=== PATIENT | male | born 1965 | race Caucasian/White ===

== ENCOUNTER → 2017-05-21 11:10 | Outpatient (CLI) | payer OTHER, SELFPAY ==
[2017-05-21 15:17] LABS: AST(SGOT) 17 U/L (15-37); Alanine Aminotransfer ALT/SGPT 28 U/L (16-61); Albumin, Serum 3.4 g/dL (3.2-5.0); Alkaline Phosphatase 107 U/L (45-117); Anion Gap 11 (5-15); BUN 15 mg/dL (7-18); BUN/Creat Ratio 18.1 RATIO (10-20); Calcium,Total 8.4 mg/dL (8.5-10.1); Chloride 99 mmol/L (98-107); Cholesterol 194 mg/dL (200); Creatinine, Serum 0.83 mg/dL (0.70-1.30); EST Glomerular Filtration Rate 103 mL/min (>60); Est Glom Filt Rate - Afr Amer 125 mL/min (>60); Globulin 4.3 g/dL (2.2-4.2); Glucose 290 mg/dL (74-106); High Density Lipoprotein 37 mg/dL; Potassium 3.9 mmol/L (3.5-5.1); Protein, Total 7.7 g/dL (6.4-8.2); Sodium Level 134 mmol/L (136-145); Triglycerides 398 mg/dL; Very Low Density Lipoprotein 80 mg/dL (5-40)
[2017-05-21 15:23] LABS: Hemoglobin A1c 10.1 % (4.2-6.3)
[2017-05-21 15:54] LABS: Microalbumin:Creatinine Ratio 635.4 mg/g CRE (<30 mg/g CRE)
== END ==
LOC: MFPLAB 11:11
PROVIDERS: Family Provider Family Medicine; PCP Family Medicine; Visit Provider Family Medicine
DX: E11.9 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 without complications (principal)
CPT/HCPCS: 36415; 80048; 80061; 80076; 82043; 82570; 83036

== ENCOUNTER → 2017-09-24 15:08 | Outpatient (CLI) | payer OTHER, SELFPAY ==
[2017-09-24 18:16] LABS: Absolute Lymphocyte Count 1.91 X10^3/ul (0.83-4.51); Basophil# 0.04 X10^3/uL; Basophil% 0.5 % (0-1); Eosinophil# 0.17 X10^3/uL; Eosinophils% 2.2 % (0-5); Hematocrit 38.7 % (40-54); Hemoglobin 12.3 g/dl (13.0-16.5); Lymphocyte # 1.91 X10^3/ul (4.0); Lymphocyte % 24.6 % (19-41); Mean Corp Hgb Conc 31.8 g/gl (32-36); Mean Corpuscular Hgb 25.4 pg (27.0-32.0); Mean Corpuscular Volume 79.8 fL (80-94); Mean Platelet Vol. 10.3 fl (6.2-12.0); Monocyte# 0.63 X10^3/uL; Monocyte% 8.1 % (0-10); Neutrophil # 5.01 X10^3/uL (2.7-7.7); Neutrophil % 64.5 % (47-70); Platelet Count 203 K/mm3 (150-450); RBC Distribution Width CV 15.2 % (11.6-14.6); RBC Distribution Width SD 44.6 fl (35.1-43.9); Red Blood Count 4.85 M/mm3 (4.6-6.2); White Blood Count 7.8 K/mm3 (4.4-11.0)
[2017-09-24 18:20] LABS: POSITIVE COUNT NO; POSITIVE DIFFERENTIAL NO; POSITIVE MORPHOLOGY NO
[2017-09-24 18:22] LABS: Thyroid Stim Hormone (TSH) 2.73 uIU/mL (0.358-3.74)
== END ==
LOC: MFPLAB 15:08
PROVIDERS: Family Provider Family Medicine; PCP Family Medicine; Visit Provider Family Medicine
DX: E11.9 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 without complications (principal); R53.81 Other malaise; R53.83 Other fatigue
CPT/HCPCS: 36415; 84403; 84443; 85025

== ENCOUNTER 2017-12-12 10:00 | Outpatient (RCR) | payer OTHER, SELFPAY ==
--- NOTE | 2017-11-20 11:01 | HP.PTEVAL_ITS ---
Patient's Visit Information KRUNAL LEOS is a 52 year old M referred to Physical Therapy by Radha Khan MD with a diagnosis of CERVICAL STRAIN. Date of Evaluation: 11/20/17 Physical Therapist: Cristino Larson, PT, - Visit Plan Frequency: 2x /Week Duration: 6 Weeks Plan: manual therapy MOBS cervical traction /STM,US,CP PROGRESS WITH ROM/ POSTURAL EX'S - Subjective Subjective: This 52 y/o male presents to physical therapy for cervical strain. Patient has had symptoms in cervical spine for a couple of months.Patient has had symptoms tightness in left UT cervical spine. Symptoms worse turning to the left ,popping either direction,sitting ,flexing neck. Symptoms better with iboprofin. Seen Dr Peace recommended PT. Denies parathesia/tingling. Denies AREVALO/ tinnutis/dizzinnes. No trauma or PT tx.Symptoms are intermmitant. Patient has seen chiroprator. Patient pain affects QOL and ADL'S/job demands. VOCATION: [employer]. SOCAIL: - Pain Left Neck Pain Intensity (Out of 10): 4 Pain Intensity Range: 8, 9 - Objective POSTURE: mild foward posture,protruded head,thoracic kyphosis. NEURO: denies parathesia/tingling ,C-5-6-7 2/3. PALAPTION: tender UT/levator scapular. CEVICAL ROM: flexion mod loss,extension mod loss,lateral flexion /rotation mod / severe loss ,left with pain left,protrusion mod,retraction mod loss. MMT: BUE grossly 4/5 - Special Tests C/S Radiculapathy - Left Upper limb tension test: Negative C/S Radiculapathy - Right Upper limb tension test: Negative C/S Radiculapathy - Left Spurlings: Negative C/S Radiculapathy - Right Spurlings: Positive Sharp Levi: Negative Vertebral Artery Test: Negative Alar Ligament Test: Negative Cervical Sitting: Protrusion - Mechanical Response: No effect Cervical Sitting: Protrusion - Symptoms During Testing: No effect Cervical Sitting: Protrusion - Symptoms After Testing: No effect Cervical Sitting: Retraction - Mechanical Response: No effect Cervical Sitting: Retraction - Symptoms During Testing: Increases Cervical Sitting: Retraction - Symptoms After Testing: No worse - Goals Goal 1:: Independant with HEP. Goal Time Frame: 4-6 Weeks Goal 2:: Patient to be Independant with HEP. Goal Time Frame: 4-6 Weeks Goal 3:: Patient to decrease left cervical pain by 60% or greater to improve function driving and ADL'S Goal Time Frame: 4-6 Weeks Goal 4:: Patient to improve cervical ROM for function of recovery for ADL;S Goal Time Frame: 4-6 Weeks Goal 5:: Patient improve ablity to improve ADL'S and job demnads with min limitations Goal Time Frame: 4-6 Weeks - Rehabilitation Potential Physical Therapy Diagnosis: Patient has left lateral stenosis affects pain left side with ROM,function ,ADL'S and job demands thus benifit from PT Rehabilitation Potential: Good - Anticipated Interventions Patient/Client Instruction: Educate patient on: Condition, Plan of Care For the Purpose of:: To decrease pain, To increase ROM, To improve muscle performance and motor function, To improve ability to perform ADL's, To increase tolerance to activity/condition/position, To improve ability of physical actions for home/community/work/leisure, To improve health of tissue, To decrease soft tissue restriction, To increase flexibility/ROM, To improve ability to perform tasks related to life management Therapeutic Exercise to Include: Strength training, Postural training, Flexibilty training, Active ROM, Georgette Exercises For the Purpose of:: To decrease pain, To increase ROM, To improve muscle performance and motor function, To improve ability to perform ADL's, To increase tolerance to activity/condition/position, To improve ability of physical actions for home/community/work/leisure, To improve health of tissue, To decrease soft tissue restriction, To increase flexibility/ROM, To improve ability to perform tasks related to life management IF ES: Yes Cryotherapy (ice pack, ice massage): Yes Thermo therapy (hot pack): Yes Ultrasound (thermal/non thermal): Yes Intermittent cervical traction: Yes For the Purpose of:: To decrease pain, To increase ROM, To improve nutrient delivery to tissue, To increase oxygenation perfusion, To improve health of tissue, To decrease soft tissue restriction Thank you for the opportunity to evaluate your patient. For Medicare and Medicare HMO plans, please review the plan of care and approve it. It will need to be FAXED BACK to us at [phone] for Medicare purposes. Please let me know if there are questions or concerns regarding this plan of care. Physician Signature: Date:
--- NOTE | 2018-03-10 12:59 | HP.PT.NRP ---
HP - Discharge Summary (1) - Patient Information KRUNAL LEOS was seen in my office for initial evaluation on 11/20/17. The following Plan of Care was established for this patient: Initial Frequency: 2x /Week Initial Duration: 6 Weeks - Anticipated Interventions Patient/Client Instruction: Educate patient on: Condition, Plan of Care For the Purpose of:: To decrease pain, To increase ROM, To improve muscle performance and motor function, To improve ability to perform ADL's, To increase tolerance to activity/condition/position, To improve ability of physical actions for home/community/work/leisure, To improve health of tissue, To decrease soft tissue restriction, To increase flexibility/ROM, To improve ability to perform tasks related to life management Therapeutic Exercise to Include: Strength training, Postural training, Flexibilty training, Active ROM, Georgette Exercises For the Purpose of:: To decrease pain, To increase ROM, To improve muscle performance and motor function, To improve ability to perform ADL's, To increase tolerance to activity/condition/position, To improve ability of physical actions for home/community/work/leisure, To improve health of tissue, To decrease soft tissue restriction, To increase flexibility/ROM, To improve ability to perform tasks related to life management IF ES: Yes Cryotherapy (ice pack, ice massage): Yes Thermo therapy (hot pack): Yes Ultrasound (thermal/non thermal): Yes Intermittent cervical traction: Yes For the Purpose of:: To decrease pain, To increase ROM, To improve nutrient delivery to tissue, To increase oxygenation perfusion, To improve health of tissue, To decrease soft tissue restriction This patient was last seen in our office 12/12/17. Pertinent comments regarding their Physical therapy will appear below: This patient seen for PT cervical strain . PT for cervical postural ex's ,modalities and ICTX . Patient progressing with decrease pain and improving ROM. At this point I will be discontinuing this patient from physical therapy. I would be happy to see this patient again in the future if found appropriate by the physician. Thank you! Cristino Larson, PT,
== END 2017-12-12 19:00 | disposition home or self-care (01) ==
LOC: PT 10:00
PROVIDERS: Family Provider Family Medicine; PCP Family Medicine; Visit Provider Family Medicine
DX: S16.1XXD Strain of muscle, fascia and tendon at neck level, subsequent encounter (principal)
CPT/HCPCS: 97012; 97035; 97110; 97140; 97162

== ENCOUNTER → 2018-01-28 15:47 | Outpatient (CLI) | payer OTHER, SELFPAY ==
--- NOTE | 2018-01-28 15:49 | ECHOCS_ITS ---
Reason For Study: HTN Procedure This was a 2D Doppler, Color Flow transthoracic echocardiogram. Contrast injection was performed. The study was technically difficult. Exam performed in department. Left Ventricle Normal LV size. Left ventricular systolic function is normal. The estimated ejection fraction is 60 %. Stage 1 diastolic dysfunction. No regional wall motion abnormalities noted. Right Ventricle Normal RV size. Normal systolic function. Atria Normal left atrium. Normal right atrium. Mitral Valve Normal mitral valve. Tricuspid Valve Normal tricuspid valve. Mild (1+) tricuspid valve insufficiency. Pulmonary artery systolic pressure is 38 mmHg. Aortic Valve Normal aortic valve. Pulmonic Valve Normal pulmonic valve. Great Vessels Normal aortic root. The pulmonary artery is normal size. Normal inferior vena cava. Pericardium/Pleural No pericardial effusion. Medication 22 gauge I.V. with prn adaptor inserted into right arm. Diluted definity 4ml given slow IV push to enhance endocardial definition. MMode/2D Measurements & Calculations LVIDd: 5.3 cm IVSd: 1.1 cm Ao root diam: 3.5 cm LVIDs: 3.9 cm LVPWd: 1.2 cm RVDd: 3.3 cm FS: 26.6 % LAV(MOD-bp): 79.6 ml LVAd ap4: 42.2 cm2 EDV(MOD-sp2): 106.5 ml LAV(MOD-bp) Indexed: 33.8 ml/m2 EDV(MOD-sp4): 151.5 ml EF(MOD-sp2): 64.6 % LAV(MOD-sp2): 90.1 ml EDV(sp4-el): 159.0 ml LAV(MOD-sp4): 63.2 ml LVAs ap4: 28.1 cm2 ESV(MOD-sp4): 75.5 ml ESV(sp4-el): 79.3 ml EF(MOD-sp4): 50.2 % EF(sp4-el): 50.1 % SV(MOD-sp4): 76.0 ml SV(MOD-sp2): 68.8 ml SV(sp4-el): 79.7 ml LA A4 area: 21.2 cm2 LA dimension(2D): 5.0 cm RA A4 area: 13.6 cm2 Time Measurements MV dec time: 0.18 sec Doppler Measurements & Calculations MV E max chin: 69.3 cm/sec Lat Peak E' Chin: 7.3 cm/sec Med Peak E' Chin: 4.5 cm/sec MV A max chin: 109.5 cm/sec E/E' lat: 9.5 E/E' med: 15.6 MV E/A: 0.63 Ao V2 max: 158.3 cm/sec LV V1 max: 90.8 cm/sec PA V2 max: 108.6 cm/sec Ao max P.0 mmHg LV V1 max P.3 mmHg TR max chin: 287.7 cm/sec TR max P.1 mmHg Interpretation Summary Normal LV size. Left ventricular systolic function is normal. The estimated ejection fraction is 60 %. Stage 1 diastolic dysfunction. Pulmonary artery systolic pressure is 38 mmHg. Contrast injection was performed. Ordering Physician: Sumanth Hanna Referring Physician: ALMA LOPEZ Performed By: Daniela Cisneros, LINDSAYCS, RVT
--- NOTE | 2018-01-28 19:27 | NURSING ---
IV inserted for echo. Left AC 22 G. Blood return. Flush with saline. Skin: no redness/edema.
== END ==
LOC: CVS 15:48
PROVIDERS: Family Provider Family Medicine; PCP Family Medicine; Referring Provider Internal Medicine Cardiovascular Disease; Visit Provider Internal Medicine Cardiovascular Disease
DX: I10 Essential (primary) hypertension (principal)
CPT/HCPCS: 93306; Q9957; A4216; C8929

== ENCOUNTER → 2018-04-07 16:46 | Outpatient (CLI) | payer OTHER, SELFPAY ==
--- NOTE | 2018-04-07 16:49 | RAD_ITS ---
STUDY: X-RAY STERNUM REASON FOR EXAM: Male, 52 years old. Palpable abnormality on the sternum TECHNIQUE: Three view(s) of the sternum were obtained. COMPARISON: Chest radiographs dated November 11, 2015; chest CTA dated September 09, 2015 FINDINGS: Normal bilateral sternoclavicular articulations. Normal manubrium. Normal sternomanubrial joint. Normal sternal body and xiphoid process. There is no demonstrated fracture of the sternum. Normal visualized anterior ribs. No focal abnormalities are seen in the visualized lungs. The lungs are under aerated. The soft tissue structures are unremarkable. RAD/Sternum min 2 Views IMPRESSION: No abnormalities are seen in the sternum or manubrium on radiographs. If further evaluation is needed clinically, a CT of the chest can be obtained. Electronically Signed: Nely Galvin MD at 16:55 EST Tel Direct: [phone], Service support ,
== END ==
PROVIDERS: Family Provider Family Medicine; PCP Family Medicine; Referring Provider Family Medicine; Visit Provider Family Medicine
DX: R22.9 Localized swelling, mass and lump, unspecified (principal)
CPT/HCPCS: 71120

== ENCOUNTER 2018-04-17 10:16 | Observation (INO) | payer OTHER, SELFPAY ==
[2018-04-17] VITALS (13 sets, daily range): BP systolic 124–165; BP diastolic 44–87; PULSE 67–80; RESP 15–30; TEMP 36.4–36.8; O2SAT 68–100; BMI 43.5; BMI 41.4; BMI 41.5
--- NOTE | 2018-04-17 10:38 | CT_ITS ---
STUDY: CTA NECK WITH CONTRAST REASON FOR EXAM: Male, 52 years old. Left-sided weakness RADIATION DOSAGE (If Supplied By Facility): CTDIvol = ( 23.86 ) mGy, DLP = ( 1538.37 ) mGycm TECHNIQUE: CT angiography with multi-detector data acquisition was performed from the aortic arch to the skull base following intravenous administration of 100cc ml of Isovue 370 contrast. MIP images were reconstructed from the axial data set. Post-processing of the angiographic images was performed, with multiplanar reformation and 3D reconstruction. Individualized dose optimization techniques were used for this CT. COMPARISON: None. FINDINGS: AORTIC ARCH: Normal visualized aortic arch. Normal origins of the brachiocephalic, left common carotid, and left subclavian arteries. RIGHT CAROTID ARTERIES: Mild calcified atherosclerotic plaque along the right common carotid artery but no significant stenosis noted. There is moderate atherosclerotic plaque formation with moderate narrowing of the right carotid bulb. Normal origin of the right internal carotid (ICA) artery without a hemodynamically significant stenosis. Normal visualized cervical portion of the right internal carotid artery. Normal origin of the right external carotid artery (ECA). LEFT CAROTID ARTERIES: Peripheral calcifications noted along the left common carotid artery there is 50% stenosis in its midportion which last for approximately 1 cm. There is moderate atherosclerotic plaque formation with moderate narrowing of the carotid bulb. Normal origin of the left internal carotid (ICA) artery without a hemodynamically significant stenosis. Normal visualized cervical portion of the left internal carotid artery. Normal origin of the left external carotid artery (ECA). 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 Absent left vertebral artery Electronically Signed: Issa Goncalves MD at 12:20 EST , Service support , STUDY: CTA OF THE BRAIN REASON FOR EXAM: Male, 52 years old. Left-sided weakness RADIATION DOSAGE (If Supplied By Facility): CTDIvol = ( 23.86 ) mGy, DLP = ( 1538.37 ) mGycm TECHNIQUE: CT angiography was performed with a multi-detector CT scanner. Data acquisition was obtained from the skull base through the vertex following intravenous administration of 100 ml of of Isovue-370. MIP images were reconstructed from the axial data set. Post-processing of the angiographic images was performed, with multiplanar reformation and 3D reconstruction. Individualized dose optimization techniques were used for this CT. COMPARISON: None. FINDINGS: Normal bilateral petrous carotid arteries. Normal right cavernous carotid artery with a normal supraclinoid bifurcation. Normal left cavernous carotid artery with a normal supraclinoid bifurcation. Normal right A1 segments of the anterior cerebral artery. Normal left A1 segments of the anterior cerebral artery. Normal intact anterior communicating artery (ACOM). Normal bilateral A2 segments of the anterior cerebral arteries. Normal right M1 and M2 segments of the middle cerebral arteries, with a normal M1 bifurcation. Normal left M1 and M2 segments of the middle cerebral arteries, with a normal M1 bifurcation. Normal right posterior communicating artery (PCOM). Normal left posterior communicating artery (PCOM). Normal bilateral vertebral arteries. Normal basilar artery with a normal basilar bifurcation. The visualized bilateral superior cerebellar (SCA) arteries are normal. Normal bilateral P1, P2 and visualized P3 segments of the posterior cerebral arteries. There is no demonstrated aneurysm of the [place]. There is no demonstrated abnormality of the visualized brain. CT/CTA Head W/WO Contrast IMPRESSION: Normal [place] without a demonstrated aneurysm or hemodynamically significant stenosis. Electronically Signed: Issa Goncalves MD at 12:21 EST , Service support ,
--- NOTE | 2018-04-17 10:38 | EKG12_ITS ---
Test Reason : NEURO S/SX Blood Pressure : / mmHG Vent. Rate : 067 BPM Atrial Rate : 067 BPM P-R Int : 148 ms QRS Dur : 110 ms QT Int : 434 ms P-R-T Axes : 020 -05 104 degrees QTc Int : 458 ms Normal sinus rhythm Voltage criteria for left ventricular hypertrophy Inferior infarct (cited on or before 17-APR-2018) T wave abnormality, consider lateral ischemia Abnormal ECG Confirmed by CARO MCRAE, ANGELA ([id number]), features editor PADMINI GRECO ([id number]) on 04/21/2018 9:21:57 AM Referred By: Savannah Pritchett Confirmed By:ANGELA ELIZONDO MD
--- NOTE | 2018-04-17 10:38 | RAD_ITS ---
STUDY: X-RAY CHEST REASON FOR EXAM: Male, 52 years old. Weakness. TECHNIQUE: Single frontal view of the chest. COMPARISON: November 11, 2015 FINDINGS: There is stable mild hyperexpansion. There is no demonstrated pleural abnormality. There is cardiomegaly unchanged. Normal mediastinum and darrel. Normal visualized pulmonary arteries. Normal visualized aortic arch and descending thoracic aorta. Normal visualized thoracic spine. Normal visualized ribs, clavicles, and shoulders. There is no demonstrated abnormality of the visualized soft tissue structures of the upper abdomen. RAD/Chest 1 View IMPRESSION: Stable cardiomegaly with hyperexpansion. No acute finding. Electronically Signed: Roman Pineda MD at 12:55 EST , Service support ,
--- NOTE | 2018-04-17 10:38 | CT_ITS ---
STUDY: CTA NECK WITH CONTRAST REASON FOR EXAM: Male, 52 years old. Left-sided weakness RADIATION DOSAGE (If Supplied By Facility): CTDIvol = ( 23.86 ) mGy, DLP = ( 1538.37 ) mGycm TECHNIQUE: CT angiography with multi-detector data acquisition was performed from the aortic arch to the skull base following intravenous administration of 100cc ml of Isovue 370 contrast. MIP images were reconstructed from the axial data set. Post-processing of the angiographic images was performed, with multiplanar reformation and 3D reconstruction. Individualized dose optimization techniques were used for this CT. COMPARISON: None. FINDINGS: AORTIC ARCH: Normal visualized aortic arch. Normal origins of the brachiocephalic, left common carotid, and left subclavian arteries. RIGHT CAROTID ARTERIES: Mild calcified atherosclerotic plaque along the right common carotid artery but no significant stenosis noted. There is moderate atherosclerotic plaque formation with moderate narrowing of the right carotid bulb. Normal origin of the right internal carotid (ICA) artery without a hemodynamically significant stenosis. Normal visualized cervical portion of the right internal carotid artery. Normal origin of the right external carotid artery (ECA). LEFT CAROTID ARTERIES: Peripheral calcifications noted along the left common carotid artery there is 50% stenosis in its midportion which last for approximately 1 cm. There is moderate atherosclerotic plaque formation with moderate narrowing of the carotid bulb. Normal origin of the left internal carotid (ICA) artery without a hemodynamically significant stenosis. Normal visualized cervical portion of the left internal carotid artery. Normal origin of the left external carotid artery (ECA). 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 Absent left vertebral artery Electronically Signed: Issa Goncalves MD at 12:20 EST , Service support , STUDY: CTA OF THE BRAIN REASON FOR EXAM: Male, 52 years old. Left-sided weakness RADIATION DOSAGE (If Supplied By Facility): CTDIvol = ( 23.86 ) mGy, DLP = ( 1538.37 ) mGycm TECHNIQUE: CT angiography was performed with a multi-detector CT scanner. Data acquisition was obtained from the skull base through the vertex following intravenous administration of 100 ml of of Isovue-370. MIP images were reconstructed from the axial data set. Post-processing of the angiographic images was performed, with multiplanar reformation and 3D reconstruction. Individualized dose optimization techniques were used for this CT. COMPARISON: None. FINDINGS: Normal bilateral petrous carotid arteries. Normal right cavernous carotid artery with a normal supraclinoid bifurcation. Normal left cavernous carotid artery with a normal supraclinoid bifurcation. Normal right A1 segments of the anterior cerebral artery. Normal left A1 segments of the anterior cerebral artery. Normal intact anterior communicating artery (ACOM). Normal bilateral A2 segments of the anterior cerebral arteries. Normal right M1 and M2 segments of the middle cerebral arteries, with a normal M1 bifurcation. Normal left M1 and M2 segments of the middle cerebral arteries, with a normal M1 bifurcation. Normal right posterior communicating artery (PCOM). Normal left posterior communicating artery (PCOM). Normal bilateral vertebral arteries. Normal basilar artery with a normal basilar bifurcation. The visualized bilateral superior cerebellar (SCA) arteries are normal. Normal bilateral P1, P2 and visualized P3 segments of the posterior cerebral arteries. There is no demonstrated aneurysm of the [place]. There is no demonstrated abnormality of the visualized brain. CT/CTA Neck W/WO Contrast IMPRESSION: Normal [place] without a demonstrated aneurysm or hemodynamically significant stenosis. Electronically Signed: Issa Goncalves MD at 12:21 EST , Service support ,
[2018-04-17 10:45] LABS: Bedside Glucose 331 mg/dL (70-110)
[2018-04-17 11:13] LABS: Absolute Lymphocyte Count 2.09 X10^3/ul (0.83-4.51); Absolute Neutrophil Count 4.7 X10^3/uL (2.0-7.7); Basophil# 0.04 X10^3/uL; Basophil% 0.5 % (0-1); Eosinophil# 0.16 X10^3/uL; Eosinophils% 2.1 % (0-5); Hematocrit 41.1 % (40-54); Hemoglobin 13.8 g/dl (13.0-16.5); Lymphocyte # 2.09 X10^3/ul (4.0); Lymphocyte % 27.1 % (19-41); Mean Corp Hgb Conc 33.6 g/gl (32-36); Mean Corpuscular Hgb 26.2 pg (27.0-32.0); Mean Corpuscular Volume 78.1 fL (80-94); Mean Platelet Vol. 10.2 fl (6.2-12.0); Monocyte# 0.75 X10^3/uL; Monocyte% 9.7 % (0-10); Neutrophil # 4.65 X10^3/uL (2.7-7.7); Neutrophil % 60.2 % (47-70); Platelet Count 215 K/mm3 (150-450); RBC Distribution Width CV 15.6 % (11.6-14.6); RBC Distribution Width SD 44.1 fl (35.1-43.9); Red Blood Count 5.26 M/mm3 (4.6-6.2); White Blood Count 7.7 K/mm3 (4.4-11.0)
[2018-04-17 11:14] LABS: POSITIVE COUNT NO; POSITIVE DIFFERENTIAL NO; POSITIVE MORPHOLOGY NO
[2018-04-17] MEDS: 0.9% Normal Saline 1,000 ML 100 ML IV ×2 (11:17→20:27)
[2018-04-17 11:27] LABS: International Normalized Ratio 0.9; Partial Thromboplast Time 25.9 Seconds (24.1-36.2); Prothrombin Time (Protime)PT. 12.5 SECONDS (11.7-14.9)
[2018-04-17 11:28] LABS: Anion Gap 10 (5-15); BUN 22 mg/dL (7-18); BUN/Creat Ratio 22.7 RATIO (10-20); Calcium,Total 8.8 mg/dL (8.5-10.1); Chloride 98 mmol/L (98-107); Creatinine, Serum 0.97 mg/dL (0.70-1.30); EST Glomerular Filtration Rate 86 mL/min (>60); Est Glom Filt Rate - Afr Amer 104 mL/min (>60); Estimated Creatinine Clearance 84.23 ml/min; Glucose 295 mg/dL (74-106); Potassium 3.8 mmol/L (3.5-5.1); Sodium Level 133 mmol/L (136-145)
--- NOTE | 2018-04-17 13:55 | ED.VISSUMM ---
- ER Visit Summary Date of Service: 04/17/18 Chief Complaint: [Numbness and weakness of the left arm and leg.] History of Present Illness: The patient is a 52 M [to the emergency department with symptoms that started at 9:55 AM today. Patient states that he was standing talking to his and granddaughter when he developed numbness in his left leg and did not feel right. Patient states that he had to sit down because he thought he might fall over. Patient also noticed that his left arm would not work right. Patient states that his symptoms lasted about 10 minutes and then resolved. Patient states that his left hand felt cold. He did have a little bit of a headache. Headaches currently resolved. He is not had any falls or head injuries. Patient is never had symptoms like this before. He denies any chest pain or shortness of breath.] Physical Examination: [HEENT-PERRLA, EOMI. Cranial nerves II through XII grossly intact. TMs clear. Mucous membranes moist. No adenopathy. Cardiovascular-regular rate and rhythm without murmur or ectopy Lungs-clear to auscultation, chest wall stable without crepitus or subcu emphysema Abdomen-normoactive bowel sounds, soft, nontender, no rebound or rigidity, no peritoneal signs. Neuro [id number] and heel hudson testing within normal limits, negative Romberg, negative pronator drift, fundi benign. NIH stroke scale was 0 Extremities-intact ?4, normal range of motion, normal pulses, atraumatic] Test Results: EKG obtained on arrival shows sinus rhythm with a ventricular rate of [address] changes noted. When compared with prior EKG no new changes noted. CBC with differential obtained showed a white count 7.7, hemoglobin 13.8, hematocrit 41, placed 215. Chemistries unremarkable. Glucose was elevated 295. INR was 0.9. Troponin was less than 0.015. CT scan of the brain without contrast showed nothing acute. CTA of the brain was unremarkable. CTA of the cervical/neck showed a 50% stenosis of the mid left common carotid artery with moderate plaque in bilateral carotid bulbs. [] Emergency Department Course and Treatment: [] Treatment Plan: [Admit for further workup and evaluation of suspected TIA] Disposition: [Admit] Impression: [TIA] This note was generated with [employer] software. It may contain incorrect words, spelling, and punctuation that were not noted in review of the chart prior to signing ED Disposition - Plan for ED Patient: Chief Complaint: Neuro S/Sx Referrals: Radha Khan MD [Primary Care Provider] -
--- NOTE | 2018-04-17 14:28 | MRI_ITS ---
STUDY: MRI BRAIN WITHOUT CONTRAST REASON FOR EXAM: Male, 52 years old. Left arm and leg weakness and numbness history of lymphoma TECHNIQUE: Standardized multiplanar fat and water weighted pulse sequences were obtained. COMPARISON: CTA of the brain on April 17, 2018 FINDINGS: Normal size of the ventricles and extra-axial spaces for the patient's age. 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 Normal thalami. There is no extra-axial fluid accumulation. Normal flow voids within the major intracranial circulation suggesting patency by spin echo criteria. Normal sella turcica, pituitary gland, infundibular stalk, optic chiasm and hypothalamus. Normal tectal plate and pineal gland. Normal midbrain, and medulla. Normal cerebellum. Normal basal cisterns. Normal bilateral temporal bones. Normal bilateral internal auditory canals. No demonstrated orbital abnormality, within the constraints of a routine brain study. Small mucous retention cyst in left maxillary sinus. Normal calvarium and skull base. Normal visualized soft tissue structures. Normal visualized upper cervical spine. MRI/Brain without Contrast IMPRESSION: Mild periventricular white matter ischemic changes without evidence for acute infarct. Old tiny lacunar infarct in the right pontine body Electronically Signed: Sameer Aparicio MD at 17:29 EST , Service support ,
--- NOTE | 2018-04-17 14:32 | ECHOCS_ITS ---
Reason For Study: TIA/CVA Procedure This was a 2D Doppler, Color Flow transthoracic echocardiogram. The study was technically difficult. Contrast injection was performed. Exam performed portable in patient room. Left Ventricle Based upon the 2D echocardiographic and contrast enhanced images obtained there appears to be grossly normal left ventricular size, wall motion, and systolic function. The estimated ejection fraction is 55 %. There is evidence of diastolic dysfunction. Right Ventricle Normal RV size. Normal systolic function. Atria The left atrium is mildly enlarged. Normal right atrium. No doppler evidence for ASD. Mitral Valve There is no mitral annular calcification. Normal mitral valve. Trivial mitral valve insufficiency. Tricuspid Valve Normal tricuspid valve. Trivial tricuspid valve insufficiency. Unable to estimate RV systolic pressure/pulmonary artery pressure due to technically difficult study. Aortic Valve Trisinus/trileaflet aortic valve. Mild focal aortic valve calcification. Pulmonic Valve The pulmonic valve is not well visualized. Great Vessels Normal sized aortic root. Pericardium/Pleural No pericardial effusion. Medication Diluted definity 3ml given slow IV push to enhance endocardial definition. Performed a rapid injection of agitated mix of 9 cc saline and 1cc air to assess for atrial septal defect. MMode/2D Measurements & Calculations Ao root diam: 3.8 cm LAV(MOD-bp): 86.7 ml LVAd ap4: 40.4 cm2 LAV(MOD-bp) Indexed: 36.4 ml/m2 EDV(MOD-sp4): 160.8 ml LAV(MOD-sp2): 77.7 ml EDV(sp4-el): 164.9 ml LAV(MOD-sp4): 85.8 ml LVAs ap4: 23.6 cm2 ESV(MOD-sp4): 66.9 ml ESV(sp4-el): 67.6 ml EF(MOD-sp4): 58.4 % EF(sp4-el): 59.0 % SV(MOD-sp4): 93.8 ml SV(sp4-el): 97.3 ml LA A4 area: 27.4 cm2 RA A4 area: 20.4 cm2 Time Measurements MV dec time: 0.20 sec Doppler Measurements & Calculations MV E max chin: 95.9 cm/sec Lat Peak E' Chin: 9.2 cm/sec Med Peak E' Chin: 4.8 cm/sec MV A max chin: 89.5 cm/sec E/E' lat: 10.5 E/E' med: 19.8 MV E/A: 1.1 MV V2 max: 105.6 cm/sec MV P1/2t max chin: 107.9 cm/sec Ao V2 max: 138.6 cm/sec MV max P.5 mmHg MV P1/2t: 104.8 msec Ao max P.7 mmHg MV V2 mean: 61.9 cm/sec MV dec slope: 301.6 cm/sec2 MV mean P.8 mmHg MV V2 VTI: 31.8 cm MVA(P1/2t): 2.1 cm2 LV V1 max: 99.7 cm/sec PA V2 max: 76.2 cm/sec LV V1 max P.0 mmHg Interpretation Summary The study was technically difficult. Contrast injection was performed. Based upon the 2D echocardiographic and contrast enhanced images obtained there appears to be grossly normal left ventricular size, wall motion, and systolic function. The estimated ejection fraction is 55 %. The left atrium is mildly enlarged. Trivial mitral valve insufficiency. Trivial tricuspid valve insufficiency. Mild focal aortic valve calcification. Unable to estimate RV systolic pressure/pulmonary artery pressure due to technically difficult study. There is evidence of diastolic dysfunction. Ordering Physician: Karlee Pritchett Referring Physician: Savannah Pritchett Performed By: Alberto Shah RCS
--- NOTE | 2018-04-17 14:38 | HP.PCM_ITS ---
Problem List (1) TIA (transient ischemic attack) Status: Acute (2) Essential (primary) hypertension Status: Chronic (3) Anxiety and depression Status: Chronic (4) Morbid obesity with BMI of 45.0-49.9, adult Status: Chronic (5) Nephrolithiasis Status: Chronic (6) Hyperlipidemia Status: Chronic Qualifiers: Hyperlipidemia type: unspecified Qualified Code(s): E78.5 - Hyperlipidemia, unspecified (7) Diabetes mellitus, type II Status: Chronic Qualifiers: Diabetes mellitus jail insulin use: without jail use Diabetes mellitus complication status: with unspecified complications Qualified Code(s): E11.8 - 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 with unspecified complications (8) KIANNA (obstructive sleep apnea) Status: Chronic Comment: He tells me that he no longer has KIANNA since he lost 50 lbs and he no longer wears CPAP History of Present Illness Date of Admission: 04/17/18 Chief Complaint: numbness and weakness in the LUE and the LLE of sudden onset lasting 10-15 minutes The patient is a 52 year old M with a past medical history of morbid obesity, diabetes mellitus type 2 poorly controlled, hypertension, obstructive sleep apnea, chronic anxiety/depression, hyperlipidemia, BPH, GERD, hypothyroidism, history of Hodgkin's disease in the 1970s, gout, and recurrent episodes of nephrolithiasis who presented to the emergency department at [facility] on 04/17/2018 complaining of sudden onset of numbness and weakness in his left arm and left leg. He was standing at the time of onset. He did not fall but he sat into a chair. He denies any slurred speech or difficulty get ting his words out and also denied any difficulty swallowing. He admits to a mild headache. The symptoms resolved in 10-15 minutes and he drove himself to the emergency department. He denies any history of stroke. Vital signs at presentation to the emergency room were temperature 97.5, pulse rate 70, blood pressure 161/87, respiratory rate 20 and he was 100% saturated on room air. CBC was remarkable only for a decreased MCV at 78.1 with an increased RDW at 15.6. PT and PTT were within normal limits. Sodium was mildly decreased at 133 and the BUN was elevated at 22 with a creatinine of 0.97. Hemoglobin A1c is 9.6. Phosphorus and magnesium were within normal limits. Serum iron is low at 51 with a normal TIBC and a normal ferritin. LFTs were unremarkable. Troponin was less than 0.015 and the TSH was normal at 1.6. Stat CT brain showed no acute findings. CTA of the neck showed a 50% stenosis in the mid left common carotid artery with no aneurysm or dissection. There was moderate atherosclerotic plaque in both common carotid artery bulbs with no significant stenosis in either proximal internal carotid artery. CTA of the brain showed a normal [place] with no significant stenosis. He is being admitted to a monitored bed on the progressive care unit for TIA. Dr. Brooks has been consulted and he has been started on aspirin 81 mg p.o. daily with the first d ose now. Stroke protocol has been initiated. Past Medical History Past Medical History (Chronic Problems): Chronic Problems (Last Updated 01/08/18 @ 16:41 by Gloria Rueda) Essential (primary) hypertension (Chronic) Anxiety and depression (Chronic) Morbid obesity with BMI of 45.0-49.9, adult (Chronic) Nephrolithiasis (Chronic) Hyperlipidemia (Chronic) Diabetes mellitus, type II (Chronic) KIANNA (obstructive sleep apnea) (Chronic) He tells me that he no longer has KIANNA since he lost 50 lbs and he no longer wears CPAP Medical History: Medical History (Last Reviewed 04/17/18 @ 19:06 by Savannah Pritchett DO) Essential (primary) hypertension (Chronic) I10 Anxiety and depression (Chronic) F41.9, F32.9 Morbid obesity with BMI of 45.0-49.9, adult (Chronic) E66.01, Z68.42 Nephrolithiasis (Chronic) Hyperlipidemia (Chronic) E78.5 Diabetes mellitus, type II (Chronic) E11.9 KIANNA (obstructive sleep apnea) (Chronic) G47.33 He tells me that he no longer has KIANNA since he lost 50 lbs and he no longer wears CPAP BPH (benign prostatic hyperplasia) N40.0 GERD (gastroesophageal reflux disease) K21.9 Hypothyroidism E03.9 Hodgkin disease C81.90 Allergies metoclopramide HCl [From Reglan] Allergy (Verified 04/17/18 10:20) Anaphylaxis Home Medications: Ambulatory Orders Medication Instructions Recorded Levothyroxine [Synthroid] 125 mcg PO DAILY 05/03/15 Pantoprazole Sodium [Protonix] 40 mg PO DAILY 05/03/15 Tamsulosin HCl [Flomax] 0.4 mg PO DAILY 09/08/15 atenolol 100 mg tablet 100 mg PO DAILY #90 tab 01/08/18 hydrochlorothiazide 25 mg tablet 25 mg PO DAILY #90 tab 01/08/18 lisinopril 40 mg tablet 40 mg PO DAILY #90 tab 01/08/18 sitagliptin 100 mg tablet 100 mg PO DAILY 01/08/18 Buspirone HCl 10 mg PO TID PRN 04/17/18 Duloxetine HCl 60 mg PO DAILY 04/17/18 Surgical History: Surgical History (Last Reviewed 04/17/18 @ 19:06 by Savannah Pritchett DO) History of left heart catheterization Z98.890 History of thoracentesis Onset Date: ~2015 Z98.890 Hx of nephrolithotomy with removal of calculi Z98.890, Z87.442 Surgical History: - - Cervical lymph node resection, L breast lump removal, Lithotripsy. Psychiatric History: Anxiety, Depression Smoking Status: Never smoker Tobacco Use: Non-smoker Alcohol: None Drugs: None - *Family History Maternal Family History: Family History (Last Reviewed 04/17/18 @ 19:07 by Savannah Pritchett DO) Brother Heart disease History Items: - - RA in his mother Paternal Family History: Family History (Last Reviewed 04/17/18 @ 19:07 by Savannah Pritchett DO) Brother Heart disease History Items: Diabetes, - - his father of pancreatitis.....he was a non- drinker and the etiology of the pancreatitis is unknown. His father also had nephrolithiasis Sibling Family History: Family History (Last Reviewed 04/17/18 @ 19:07 by Savannah Pritchett DO) Brother Heart disease History Items: - - brother who is was an alcoholic and had heart disease Review of Systems Constitutional: Denies: Anorexia, Chills, Fever, Malaise, Weight Change Eyes: Denies: Blurred vision, Vision Change HEENT: Denies: Difficulty Swallowing, Dysphasia, Head Aches, Sinus Congestion, Sinus Drainage, Visual Changes Cardiovascular: Reports: Light Headedness - episodic. Denies: Chest Pain, Palpitations Respiratory: Denies: Cough, Shortness of breath at rest, Sputum production Gastrointestinal: Denies: Abdominal Pain, Nausea, Vomiting Genitourinary: Denies: Dysuria Musculoskeletal: Denies: Joint Pain, Joint Tenderness Skin: Denies: Jaundice, Rash, Wounds Neurological: Reports: Focal weakness - L arm and leg, Numbness, Tingling. Denies: Blurred vision, Change in Speech, Slurred speech, Confusion, Difficulty swallowing, Tremor, Seizures Psychiatric: Denies: Anxiety, Depression, Homicidal Ideations, Suicidal Ideations Endocrine: Reports: Hx of Irradiation - he had radiation to the chest in the s for Hodgekin's and he also had chemo. Denies: Change in Body Habitus Hematologic/ Lymphatic: Denies: Easy Bruising, Easy Bleeding, Hx of blood clot VTE Information - Inpt Only VTE Present on Admission: No VTE Mechan Device Prophylaxis: SCD's, Knee High LAUREN Hose VTE Pharm Prophylaxis ordered?: Yes Patient Problems: Active and Suspected Problems (Last Updated 01/08/18 @ 16:41 by Gloria Rueda) TIA (transient ischemic attack) (Acute) - Physical Exam General: Alert, Oriented x3, Cooperative HEENT: Atraumatic, PERRLA, EOMI, Normocephalic Oral: No Gingival or Mucosal Lesions/ Ulcerations, Dry Mucosa Neck: Supple, No JVD, Carotid Bruit, Left Lungs: Clear to auscultation, Normal air movement Cardiovascular: Regular rate, Regular Rhythm, Normal S1, Normal S2, No murmurs, No rub noted, No Gallop Abdomen: Bowel Sounds Present, Soft, Non Tender, Non-Distended, Obese, - - No abdominal bruits, no masses Extremities: No clubbing, No cyanosis, No edema, Capillary Refill Less than 3 Seconds, No Calf Tenderness, Peripheral Pulses Normal Skin: No rashes, No breakdown Musculoskeletal: No Tenderness to Palpation of Joints or Extremities Neurological: Cranial nerves II-XII grossly intact, Neuro grossly intact Psych/Mental Status: Normal Affect, Appropriate Vital Signs Temp Pulse Resp BP Pulse Ox 97.5 F L 70 26 H 160/85 H 100 04/17/18 10:17 04/17/18 14:12 04/17/18 14:12 04/17/18 13:22 04/17/18 14:12 Oxygen Delivery Method Room Air Weight: 286 lb 6.087 oz Body Mass Index (BMI) 43.5 Finger Stick Blood Glucose 331 Laboratory Tests Past 24 Hrs 04/17/18 04/17/18 04/17/18 11:05 11:05 11:05 WBC 7.7 RBC 5.26 Hgb 13.8 Hct 41.1 MCV 78.1 L MCH 26.2 L MCHC 33.6 RDW 15.6 H RDW Differential 44.1 H Plt Count 215 MPV 10.2 Immature Gran % (Auto) 0.400 Neut % (Auto) 60.2 Lymph % (Auto) 27.1 [place] % (Auto) 9.7 Eos % (Auto) 2.1 Baso % (Auto) 0.5 Absolute Neuts (auto) 4.7 Absolute Lymphs (auto) 2.09 Total Counted Not Reportable PT 12.5 INR 0.9 APTT 25.9 Sodium 133 L Potassium 3.8 Chloride 98 Carbon Dioxide 25.0 Anion Gap 10 BUN 22 H Creatinine 0.97 Estim Creat Clear Calc 84.23 Est GFR (MDRD) Af Amer 104 Est GFR (MDRD) Non-Af 86 BUN/Creatinine Ratio 22.7 H Glucose 295 H Calcium 8.8 Troponin I < 0.015 POC Glucose 04/17/18 10:39 POC Glucose 331 H Assessment/Plan All Active Problems (Last Updated 01/08/18 @ 16:41 by Gloria Rueda) TIA (transient ischemic attack) (Acute) Acute respiratory failure with hypoxia (Resolved) Pleural effusion on left (Resolved) Impressions 1. TIA -patient has multiple risk factors for cerebrovascular and cardiovascular disease which include obesity, hypertension, hyperlipidemia, uncontrolled diabetes mellitus and a family history of heart disease. He has been started on ASA and a statin. 2. Uncontrolled diabetes mellitus type 2 3. Hypertension 4. Hyperlipidemia 5. Morbid obesity 6. Hypothyroidism 7. GERD 8. Nephrolithiasis 9. History of Hodgkin's disease in the 1970s treated with chemotherapy and radiation to his chest 10. Gout 11. Anxiety/depression 12. KIANNA-previously treated with CPAP however the patient states he lost 50 pounds and he no longer needs CPAP. 13. L common carotid stenosis with L carotid bruit Admit to a monitored bed on PCU Initiate Stroke protocol MRI of the head If unable to have MRI will CTA of the head and the neck - done Neurology consult Antiplatelet therapy with ASA PT and OT consults Bedside swallow eval Hydrate Lipid profile in the AM EKG Start a statin Overnight trending pulse ox......with his body habitus and BMI I suspect he still has sleep apnea......can not tell me how long it has been since his last sleep study and how much weight he has gained since then Code Visit OBSV E&M: 52022 Initial observation care L3
--- NOTE | 2018-04-17 15:14 | CON.PCM_ITS ---
Problem List (1) TIA (transient ischemic attack) Status: Acute Reason for Consult Date of Consultation: 04/17/18 Reason for Consultation: TIA History of Present Illness: The patient is a 52 year old M with PMH HTN, HLD, DM, H/O Hodgkin's lymphoma, H/O KIANNA, morbid obesity, anxiety, depression, hypothyroidism admitted with episode of left sided weakness and numbness. Per patient around 10 am this morning (04/17/18) patient had acute onset of left sided numbness, felt his left leg was incoordinated and weak and could not bear weight on the same. His symptoms lasted for about 10-15 minutes, also had mild AREVALO which later improved per patient, denies any speech disturbances, or visual disturbances, dizziness or neck pain with the episode. Was on ASA but was stopped about 2-3 months ago by his Internet Architect. Denies any falls, balance issues, does drive, faraz not use cane or walker to ambulate. [] Past Medical History Past Medical History (Chronic Problems): Chronic Problems (Last Updated 01/08/18 @ 16:41 by Gloria Rueda) Essential (primary) hypertension (Chronic) Anxiety and depression (Chronic) Morbid obesity with BMI of 45.0-49.9, adult (Chronic) Nephrolithiasis (Chronic) Hyperlipidemia (Chronic) Diabetes mellitus, type II (Chronic) KIANNA (obstructive sleep apnea) (Chronic) Medical History: Medical History (Last Updated 01/08/18 @ 16:41 by Gloria Rueda) Essential (primary) hypertension (Chronic) I10 Anxiety and depression (Chronic) F41.9, F32.9 Morbid obesity with BMI of 45.0-49.9, adult (Chronic) E66.01, Z68.42 Nephrolithiasis (Chronic) Hyperlipidemia (Chronic) E78.5 Diabetes mellitus, type II (Chronic) E11.9 KIANNA (obstructive sleep apnea) (Chronic) G47.33 BPH (benign prostatic hyperplasia) N40.0 GERD (gastroesophageal reflux disease) K21.9 Hypothyroidism E03.9 Hodgkin disease C81.90 Allergies metoclopramide HCl [From Reglan] Allergy (Verified 04/17/18 10:20) Anaphylaxis Home Medications: Ambulatory Orders Medication Instructions Recorded Levothyroxine [Synthroid] 125 mcg PO DAILY 05/03/15 Pantoprazole Sodium [Protonix] 40 mg PO DAILY 05/03/15 Tamsulosin HCl [Flomax] 0.4 mg PO DAILY 09/08/15 atenolol 100 mg tablet 100 mg PO DAILY #90 tab 01/08/18 hydrochlorothiazide 25 mg tablet 25 mg PO DAILY #90 tab 01/08/18 lisinopril 40 mg tablet 40 mg PO DAILY #90 tab 01/08/18 sitagliptin 100 mg tablet 100 mg PO DAILY 01/08/18 Buspirone HCl 10 mg PO TID PRN 04/17/18 Duloxetine HCl 60 mg PO DAILY 04/17/18 Surgical History: Surgical History (Last Reviewed 01/08/18 @ 16:35 by Sumanth Hanna MD) History of left heart catheterization Z98.890 History of thoracentesis Onset Date: ~2015 Z98.890 Hx of nephrolithotomy with removal of calculi Z98.890, Z87.442 Surgical History: - - Cervical lymph node resection, L breast lump removal, Lithotripsy. Psychiatric History: Anxiety, Depression Lives: Spouse/ Significant Other Smoking Status: Never smoker Tobacco Use: Non-smoker Alcohol: None Drugs: None - *Family History Maternal Family History: Family History (Last Reviewed 01/08/18 @ 16:35 by Sumanth Hanna MD) Brother Heart disease History Items: - - RA Paternal Family History: Family History (Last Reviewed 01/08/18 @ 16:35 by Sumanth Hanna MD) Brother Heart disease History Items: Diabetes Review of Systems Constitutional: Reports: - - complete ROS negative except as documented in HPI Patient Problems: Active and Suspected Problems (Last Updated 01/08/18 @ 16:41 by Gloria Rueda) TIA (transient ischemic attack) (Acute) - Physical Exam General: Alert HEENT: Normocephalic Neck: Supple Lungs: Normal air movement Cardiovascular: Normal S1, Normal S2 Abdomen: Bowel Sounds Present Extremities: No cyanosis Neurological: - - consious, alert, AoAx3, CN 2-12 grossly intact, power 5/5 all 4 extremities, no sensory loss, no cerebellar signs, gait deferred, Reflexes + B/L B/S/T/K/A, NIHSS 0 at present, mRS 0 at baseline. Psych/Mental Status: Normal Affect Vital Signs Temp Pulse Resp BP Pulse Ox 98.1 F 69 16 150/44 H 100 04/17/18 14:59 04/17/18 14:59 04/17/18 14:59 04/17/18 14:59 04/17/18 14:59 Oxygen Delivery Method Room Air Weight: 127.4 kg Body Mass Index (BMI) 41.4 Finger Stick Blood Glucose 331 Laboratory Tests Past 24 Hrs 04/17/18 04/17/18 04/17/18 11:05 11:05 11:05 WBC 7.7 RBC 5.26 Hgb 13.8 Hct 41.1 MCV 78.1 L MCH 26.2 L MCHC 33.6 RDW 15.6 H RDW Differential 44.1 H Plt Count 215 MPV 10.2 Immature Gran % (Auto) 0.400 Neut % (Auto) 60.2 Lymph % (Auto) 27.1 [place] % (Auto) 9.7 Eos % (Auto) 2.1 Baso % (Auto) 0.5 Absolute Neuts (auto) 4.7 Absolute Lymphs (auto) 2.09 Total Counted Not Reportable PT 12.5 INR 0.9 APTT 25.9 Sodium 133 L Potassium 3.8 Chloride 98 Carbon Dioxide 25.0 Anion Gap 10 BUN 22 H Creatinine 0.97 Estim Creat Clear Calc 84.23 Est GFR (MDRD) Af Amer 104 Est GFR (MDRD) Non-Af 86 BUN/Creatinine Ratio 22.7 H Glucose 295 H Calcium 8.8 Troponin I < 0.015 POC Glucose 04/17/18 10:39 POC Glucose 331 H Assessment/Plan All Active Problems (Last Updated 01/08/18 @ 16:41 by Gloria Rueda) TIA (transient ischemic attack) (Acute) Acute respiratory failure with hypoxia (Resolved) Pleural effusion on left (Resolved) The patient is a 52 year old M with PMH HTN, HLD, DM, H/O Hodgkin's lymphoma, H/O KIANNA, morbid obesity, anxiety, depression, hypothyroidism admitted with episode of left sided weakness and numbness. Per patient around 10 am this morning (04/17/18) patient had acute onset of left sided numbness, felt his left leg was incoordinated and weak and could not bear weight on the same. His symptoms lasted for about 10-15 minutes, also had mild AREVALO which later improved per patient, denies any speech disturbances, or visual disturbances, dizziness or neck pain with the episode. Was on ASA but was stopped about 2-3 months ago by his Internet Architect. Denies any falls, balance issues, does drive, faraz not use cane or walker to ambulate. [] Impression Probable TIA Plan -ABCD2 score of atleast 5. Dual AP with ASA and Plavix for 21 days, then switch to single AP with ASA. Bleeding risks discussed -Lipitor 80 mg PO q hs -MRI brain w/o contrast -CTA head/neck showed 50% stenosis left ICA -Check LCL, Hba1c and TTE -Permissive HTN for about 24 hrs -Stroke risk factors discussed and stroke education provided -PT/OT -GI/DVT prophylaxis -Further medical management per hospitalist team -Follow up with Neurology as outpatient in 4 weeks -Please call with questions if any -Thank you for allowing us to participate in patient's care and management. Code Visit Inpatient E&M: 52527 Init Hosp L3
[2018-04-17] MEDS: Aspirin 81 MG TAB.CHEW PO (15:40)
[2018-04-17 15:57] LABS: Phosphorus 4.1 mg/dL (2.5-4.9)
[2018-04-17 16:03] LABS: Hemoglobin A1c 9.6 % (4.2-6.3)
[2018-04-17 16:14] LABS: AST(SGOT) 18 U/L (15-37); Alanine Aminotransfer ALT/SGPT 27 U/L (16-61); Albumin, Serum 3.6 g/dL (3.2-5.0); Alkaline Phosphatase 99 U/L (45-117); Bilirubin, Direct 0.12 mg/dL (0.00-0.30); Ferritin 101 ng/mL (26-388); Globulin 4.6 g/dL (2.2-4.2); Iron 51 ug/dL (65-175); Iron Binding Capacity,Total 324 ug/dL (250-450); Magnesium 1.8 mg/dL (1.6-2.6); PERCENT IRON SATURATION 15.7 % (15.0-55.0); Protein, Total 8.2 g/dL (6.4-8.2)
[2018-04-17 16:55] LABS: Bedside Glucose 180 mg/dL (70-110)
[2018-04-17] MEDS: Acetaminophen 325 MG Tablet 650 MG PO (16:58)
[2018-04-17] MEDS: Atorvastatin Calcium 10 MG Tablet PO (21:11)
[2018-04-17] MEDS: Clopidogrel Bisulfate 75 MG Tablet PO (21:11)
[2018-04-18] VITALS (15 sets, daily range): BP systolic 128–188; BP diastolic 70–92; PULSE 72–96; RESP 14–30; TEMP 36.5–36.8; O2SAT 97–99; BMI 41.4
[2018-04-18] MEDS: Insulin Lispro 100 UNIT/ML INSULN.PEN SC ×5 (00:44→21:27)
[2018-04-18 00:46] LABS: Bedside Glucose 302 mg/dL (70-110)
[2018-04-18 01:11] LABS: Bedside Glucose 218 mg/dL (70-110)
[2018-04-18] MEDS: hydrALAZINE 20 MG/ML Vial 10 MG IV (04:00)
[2018-04-18] MEDS: 0.9% NaCl Peripheral Flush Adult/Peds IV ×2 (04:10→04:11)
[2018-04-18] MEDS: Levothyroxine 125 MCG Tablet PO (05:49)
[2018-04-18 06:46] LABS: Hematocrit 39.2 % (40-54); Hemoglobin 12.7 g/dl (13.0-16.5); Mean Corp Hgb Conc 32.4 g/gl (32-36); Mean Corpuscular Hgb 25.8 pg (27.0-32.0); Mean Corpuscular Volume 79.5 fL (80-94); Mean Platelet Vol. 10.2 fl (6.2-12.0); Platelet Count 164 K/mm3 (150-450); RBC Distribution Width CV 15.2 % (11.6-14.6); RBC Distribution Width SD 44.1 fl (35.1-43.9); Red Blood Count 4.93 M/mm3 (4.6-6.2); White Blood Count 6.3 K/mm3 (4.4-11.0)
[2018-04-18 06:47] LABS: Scan Indicated on CBC? Y/N NO
[2018-04-18] MEDS: Lisinopril 40 MG Tablet PO (06:56)
[2018-04-18] MEDS: hydroCHLOROthiazide 25 MG Tablet PO (06:56)
[2018-04-18] MEDS: Atenolol 100 MG Tablet PO (06:57)
[2018-04-18 07:09] LABS: BUN 14 mg/dL (7-18); Creatinine, Serum 0.77 mg/dL (0.70-1.30); EST Glomerular Filtration Rate 112 mL/min (>60); Estimated Creatinine Clearance 109.67 ml/min; Glucose 219 mg/dL (74-106)
[2018-04-18 07:10] LABS: Anion Gap 13 (5-15); BUN/Creat Ratio 18.3 RATIO (10-20); Calcium,Total 8.3 mg/dL (8.5-10.1); Chloride 101 mmol/L (98-107); Cholesterol 161 mg/dL (200); Est Glom Filt Rate - Afr Amer 136 mL/min (>60); High Density Lipoprotein 33 mg/dL; Potassium 3.5 mmol/L (3.5-5.1); Sodium Level 137 mmol/L (136-145); Triglycerides 412 mg/dL
[2018-04-18] MEDS: Pantoprazole Sodium 40 MG Tablet PO (07:53)
[2018-04-18] MEDS: Tamsulosin HCl 0.4 MG Capsule PO (07:53)
[2018-04-18] MEDS: Aspirin 81 MG TAB.CHEW PO (07:53)
[2018-04-18 08:06] LABS: Bedside Glucose 243 mg/dL (70-110)
[2018-04-18] MEDS: LINAGLIPTIN 5 MG TABLET PO (09:29)
[2018-04-18] MEDS: DULoxetine Hcl 60 MG Capsule PO (09:29)
[2018-04-18] MEDS: Enoxaparin 40 MG/0.4 ML Syringe SC (09:32)
[2018-04-18] MEDS: Clopidogrel Bisulfate 75 MG Tablet PO (09:32)
--- NOTE | 2018-04-18 11:38 | PN_ITS ---
Patient Problems: Active and Suspected Problems (Last Reviewed 04/17/18 @ 19:06 by Savannah Pritchett DO) TIA (transient ischemic attack) (Acute) Subjective: Patient was seen and examined. He feels much improved. Denied any fever or chills. Left-sided weakness and numbness is resolved. Blood pressure remains uncontrolled. Denies any dizziness or palpitations. No acute events overnight. Objective: Physical Exam General: Alert, Oriented x3, Cooperative, morbidly obese HEENT: Atraumatic, PERRLA, EOMI, Normocephalic Oral: No Gingival or Mucosal Lesions/ Ulcerations, Moist oral Mucosa Neck: Supple, No JVD, Carotid Bruit, Left Lungs: Clear to auscultation, Normal air movement Cardiovascular: Regular rate, Regular Rhythm, Normal S1, Normal S2, No murmurs, No rub noted, No Gallop Abdomen: Bowel Sounds Present, Soft, Non Tender, Non-Distended, Obese, - - No abdominal bruits, no masses Extremities: No clubbing, No cyanosis, No edema, Capillary Refill Less than 3 Seconds, No Calf Tenderness, Peripheral Pulses Normal Skin: No rashes, No breakdown Musculoskeletal: No Tenderness to Palpation of Joints or Extremities Neurological: Cranial nerves II-XII grossly intact, Neuro grossly intact Psych/Mental Status: Normal Affect, Appropriate Vitals/I&O's: Vital Signs Temp Pulse Resp BP Pulse Ox 98 F 72 14 161/74 H 97 04/18/18 09:22 04/18/18 09:22 04/18/18 09:22 04/18/18 09:22 04/18/18 09:22 Oxygen Delivery Method Room Air Weight: 127.4 kg Body Mass Index (BMI) 41.4 Finger Stick Blood Glucose 331 Intake and Output for Last 24 Hours 04/16/18 04/17/18 04/18/18 23:59 23:59 23:59 Intake Total 216 / 2166 1799 / 179 Balance 2165 / 2161798 / 179 Laboratory Results 04/17/18 11:05: Magnesium 1.8, Iron 51 L, TIBC 324, Iron Saturation 15.7, Ferritin 101, Total Bilirubin 0.60, Direct Bilirubin 0.12, AST 18, ALT 27, Alkaline Phosphatase 99, Total Protein 8.2, Albumin 3.6, Globulin 4.6 H, TSH 1.60 04/17/18 11:05: Phosphorus 4.1 04/17/18 11:05: Hemoglobin A1c 9.6 H 04/17/18 16:51: POC Glucose 180 H 04/17/18 21:14: POC Glucose 302 H 04/18/18 00:43: POC Glucose 218 H 04/18/18 05:48: WBC 6.3, RBC 4.93, Hgb 12.7 L, Hct 39.2 L, MCV 79.5 L, MCH 25.8 L, MCHC 32.4, RDW 15.2 H, RDW Differential 44.1 H, Plt Count 164, MPV 10.2 04/18/18 05:48: Sodium 137, Potassium 3.5, Chloride 101, Carbon Dioxide 23.0, Anion Gap 13, BUN 14, Creatinine 0.77, Estim Creat Clear Calc 109.67, Est GFR (MDRD) Af Amer 136, Est GFR (MDRD) Non-Af 112, BUN/Creatinine Ratio 18.3, Glucose 219 H, Calcium 8.3 L, Triglycerides 412 H, Cholesterol 161, LDL Cholesterol TNP, VLDL Cholesterol TNP, HDL Cholesterol 33 L 04/18/18 07:08: POC Glucose 243 H Current Medications Acetaminophen (Tylenol) 650 mg PO Q4H PRN PRN PRN Reason: Headache/Temp>99F Last Admin: 04/17/18 16:58 Dose: 650 mg Aspirin (Aspirin, Baby) 81 mg PO DAILY@0800 [facility] Last Admin: 04/18/18 07:53 Dose: 81 mg Atenolol (Tenormin (Beta Benjy)) 100 mg PO DAILY [facility] Last Admin: 04/18/18 06:57 Dose: 100 mg Atorvastatin Calcium (Lipitor) 80 mg PO QHS [facility] Buspirone HCl (Buspar) 10 mg PO TID PRN Clopidogrel Bisulfate (Plavix) 75 mg PO DAILY [facility] Stop: 05/07/18 10:01 Last Admin: 04/18/18 09:32 Dose: 75 mg Duloxetine HCl (Cymbalta) 60 mg PO DAILY [facility] Last Admin: 04/18/18 09:29 Dose: 60 mg Enoxaparin Sodium (Lovenox) 40 mg SC DAILY [facility] Last Admin: 04/18/18 09:32 Dose: 40 mg Hydralazine HCl (Apresoline Iv) 10 mg IV Q4H PRN PRN PRN Reason: SBP > 160 Last Admin: 04/18/18 04:00 Dose: 10 mg Hydrochlorothiazide (Hctz) 25 mg PO DAILY [facility] Last Admin: 04/18/18 06:56 Dose: 25 mg Insulin Glargine (Lantus (Bkc)) 5 units SC QHS [facility] Insulin Human Lispro (Humalog Kwikpen (Bkc)) 0 unit SC ACHS [facility]; Protocol Last Admin: 04/18/18 11:22 Dose: 5 u Levothyroxine Sodium (Synthroid) 125 mcg PO DAILY@0600 [facility] Last Admin: 04/18/18 05:49 Dose: 125 mcg Linagliptin (Tradjenta) 5 mg PO DAILY [facility] Last Admin: 04/18/18 09:29 Dose: 5 mg Lisinopril (Zestril) 40 mg PO DAILY [facility] Last Admin: 04/18/18 06:56 Dose: 40 mg Pantoprazole Sodium (Protonix) 40 mg PO DAILY [facility] Last Admin: 04/18/18 07:53 Dose: 40 mg Sodium Chloride () 5 - 15 ml IV UD PRN PRN Reason: SALINE FLUSH Last Admin: 04/18/18 04:11 Dose: 10 ml Tamsulosin HCl (Flomax) 0.4 mg PO DAILY@0830 [facility] Last Admin: 04/18/18 07:53 Dose: 0.4 mg Medical Necessity - Tobacco Use Smoking Status: Never smoker Tobacco Use: Non-smoker Assessment/Plan All Active Problems (Last Reviewed 04/17/18 @ 19:06 by Savannah Pritchett DO) TIA (transient ischemic attack) (Acute) Acute respiratory failure with hypoxia (Resolved) Pleural effusion on left (Resolved) 52-year-old male with past medical history of uncontrolled type II DM, hypertension, hyperlipidemia, hypothyroidism, morbid obesity comes in with complaints of left-sided weakness and has bene managed as TIA. 1. Acute left-sided weakness secondary to TIA, stroke ruled out with negative MRI, appreciate neurology consult, on aspirin, Plavix, statin 2D echo was negative for any intra-atrial shunting. 2. Type II DM, HbA1c is 9.6, improved from 10, on Januvia and metformin, discussed with patient, will start patient on Lantus 5 units nightly, dietitian consulted, continue with insulin sliding scale. 3. Hyperlipidemia, uncontrolled, started on atorvastatin 80 mg daily, will need to repeat lipid profile in 6 weeks 4. Hypothyroidism, on Synthroid 5. Hypertension, uncontrolled, will resume patient's home medication, blood pressure was allowed to rise to allow for permissive hypertension 6. Morbid obesity, BMI 41.5, diet and exercise is recommended 7. Anxiety/depression, on Cymbalta, buspirone 8. Prophylaxis with Lovenox subcu Code Visit Inpatient E&M: 42979 Subs Hosp L2
[2018-04-18 12:00] LABS: Bedside Glucose 338 mg/dL (70-110)
[2018-04-18 17:01] LABS: Bedside Glucose 258 mg/dL (70-110)
[2018-04-18] MEDS: Atorvastatin Calcium 80 MG Tablet PO (21:28)
[2018-04-19] VITALS (9 sets, daily range): BP systolic 113–180; BP diastolic 59–105; PULSE 82–96; RESP 17–27; TEMP 36.4–36.5; O2SAT 96–98; BMI 41.4
[2018-04-19 00:36] LABS: Bedside Glucose 294 mg/dL (70-110)
[2018-04-19] MEDS: hydrALAZINE 20 MG/ML Vial 10 MG IV (04:13)
[2018-04-19] MEDS: 0.9% NaCl Peripheral Flush Adult/Peds IV ×3 (04:13→04:19)
--- NOTE | 2018-04-19 06:10 | NURSING ---
Pt states he had a AREVALO after the Hydralazine. Denies at this time.
[2018-04-19] MEDS: Levothyroxine 125 MCG Tablet PO (06:11)
--- NOTE | 2018-04-19 06:15 | NURSING ---
RN notes blood in tissue in trash. Pt states it came from his nose. States the air is dry and doesn't feel it was a true bloody nose.
[2018-04-19 07:05] LABS: Bedside Glucose 267 mg/dL (70-110)
[2018-04-19] MEDS: Insulin Lispro 100 UNIT/ML INSULN.PEN SC (08:02)
[2018-04-19] MEDS: DULoxetine Hcl 60 MG Capsule PO (08:04)
[2018-04-19] MEDS: Aspirin 81 MG TAB.CHEW PO (08:04)
[2018-04-19] MEDS: Tamsulosin HCl 0.4 MG Capsule PO (08:04)
[2018-04-19] MEDS: Enoxaparin 40 MG/0.4 ML Syringe SC (08:05)
[2018-04-19] MEDS: Atenolol 100 MG Tablet PO (08:05)
[2018-04-19] MEDS: hydroCHLOROthiazide 25 MG Tablet PO (08:05)
[2018-04-19] MEDS: Pantoprazole Sodium 40 MG Tablet PO (08:05)
[2018-04-19] MEDS: Clopidogrel Bisulfate 75 MG Tablet PO (08:05)
[2018-04-19] MEDS: LINAGLIPTIN 5 MG TABLET PO (08:06)
[2018-04-19] MEDS: Lisinopril 40 MG Tablet PO (08:06)
[2018-04-19] MEDS: busPIRone 5 MG Tablet 10 MG PO (08:11)
--- NOTE | 2018-04-19 10:26 | DCINST_ITS ---
- Discharge Diagnoses Current Active Problems: Current Active and Chronic Problems (Last Reviewed 04/17/18 @ 19:06 by Savannah Pritchett DO) TIA (transient ischemic attack) (Acute) Reason(s) for Visit for Discharge Instructions: Left sided weakness You will use the following diet at home:: Calorie/Carbohydrate Controlled (specify 1200, 1400, etc), Cardiac Your food should be the consistency of: Regular Your liquids should be the consistency of: Regular/Thin Discharge Activity: Return to Normal Activity Additional Instructions: Continue to take all your medications as prescribed. You will be given a prescription for blood pressure machine. Take your blood pressure every day and show a log of your readings to your primary care doctor when you follow-up with him. Follow-up with a neurologist within 4 weeks. Continue to remain active. Measure your blood sugars at least 3 times a day. You are recommended to follow-up with a dietitian in the outpatient. Allergies/Adverse Reactions: Allergies metoclopramide HCl [From Reglan] Allergy (Verified 04/17/18 10:20) Anaphylaxis Medications to take at Discharge Levothyroxine [Synthroid] 125 mcg PO DAILY 05/03/15 Pantoprazole Sodium [Protonix] 40 mg PO DAILY 05/03/15 Tamsulosin HCl [Flomax] 0.4 mg PO DAILY 09/08/15 atenolol 100 mg tablet 100 mg PO DAILY #90 tab 01/08/18 hydrochlorothiazide 25 mg tablet 25 mg PO DAILY #90 tab 01/08/18 lisinopril 40 mg tablet 40 mg PO DAILY #90 tab 01/08/18 sitagliptin 100 mg tablet 100 mg PO DAILY 01/08/18 Buspirone HCl 10 mg PO TID PRN 04/17/18 Duloxetine HCl 60 mg PO DAILY 04/17/18 Aspirin [Aspirin, Baby] 81 mg PO DAILY@0800 tab.chew 04/19/18 Atorvastatin Calcium [Lipitor] 80 mg PO QHS #30 tab 04/19/18 Clopidogrel Bisulfate [Plavix] 75 mg PO DAILY #18 tablet 04/19/18 Insulin Glargine [Lantus SoloStar Pen] 5 units SC QHS #1 pen 04/19/18 The following prescriptions were given: Atorvastatin Calcium [Lipitor] 80 mg PO QHS #30 tab Clopidogrel Bisulfate [Plavix] 75 mg PO DAILY #18 tablet Insulin Glargine [Lantus SoloStar Pen] 5 units SC QHS #1 pen Primary Care Physician: Radha Khan MD [Primary Care Provider] - Please follow up with your Primary Care Physician in: within 2 weeks Test Results: Test results from this visit will be discussed in further detail at your follow- up appointment, if applicable. Please Follow Up With: Lisa Brooks MD When: within 4 weeks Proposed Discharge Date: 04/19/18
--- NOTE | 2018-04-19 10:26 | PCM.DC.SUM ---
Discharge Date and Diagnosis Date of Admission: 04/17/18 Date of Discharge: 04/19/18 - Primary Discharge Diagnosis Active and Suspected Problems (Last Reviewed 04/17/18 @ 19:06 by Savannah Pritchett DO) TIA (transient ischemic attack) (Acute) Uncontrolled hypertension Uncontrolled type II DM Uncontrolled hyperlipidemia. - Secondary Discharge Diagnosis Chronic Problems (Last Reviewed 04/17/18 @ 19:06 by Savannah Pritchett DO) Essential (primary) hypertension (Chronic) Anxiety and depression (Chronic) Morbid obesity with BMI of 45.0-49.9, adult (Chronic) Nephrolithiasis (Chronic) Hyperlipidemia (Chronic) Diabetes mellitus, type II (Chronic) KIANNA (obstructive sleep apnea) (Chronic) He tells me that he no longer has KIANNA since he lost 50 lbs and he no longer wears CPAP Hospital Course and Treatment Imaging Results: Clinical Impression(s) from Imaging Studies Chest X-Ray 04/17/18 10:38 IMPRESSION: Stable cardiomegaly with hyperexpansion. No acute finding. Electronically Signed: Roman Pineda MD at 12:55 EST , Service support , Head CTA 04/17/18 10:38 IMPRESSION: Normal [place] without a demonstrated aneurysm or hemodynamically significant stenosis. Electronically Signed: Issa Goncalves MD at 12:21 EST , Service support , Neck CTA 04/17/18 10:38 IMPRESSION: Normal [place] without a demonstrated aneurysm or hemodynamically significant stenosis. Electronically Signed: Issa Goncalves MD at 12:21 EST , Service support , Brain MRI 04/17/18 14:28 IMPRESSION: Mild periventricular white matter ischemic changes without evidence for acute infarct. 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 He was admitted complaining of sudden onset of numbness and weakness in the left arm and leg. He denied any slurred speech. CT scan of the head on admission showed no acute findings. CTA of the neck showed 50% stenosis in the mid left common carotid artery with no aneurysm or dissection. There was moderate atherosclerotic plaque in both common carotid artery bulbs. CT of the brain showed a normal [place] with no significant stenosis. Patient was admitted to telemetry bed. No acute events on telemetry. Neurology was consulted. MRI of the brain showed mild periventricular white matter ischemic change without any evidence of acute infarct. 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 2D echo showed EF of 55%, evidence of diastolic dysfunction. Negative bubble study. No acute events was seen on telemetry. He was recommended to be on dual antiplatelets therapy for 21 days and switched only to aspirin. Patient's blood sugars were uncontrolled during the stay. He is on Januvia and metformin. His HbA1c was 9.6. Patient says this is improved from recent readings of 10. Patient is not on insulin. He was started on Lantus 5 units nightly. Dietitian was consulted and patient was advised to follow within the outpatient. He was advised to follow a strict ADA diet, moderate exercises, monitor his blood sugars at least 3 times a day. His blood pressures were initially uncontrolled; permissive hypertension was allowed. He improved with resumption of his home blood pressure medication. He was discharged on high-dose statins for uncontrolled hyperlipidemia. Strict low-fat diet and exercises were recommended. Subjective: And was seen and examined on the day of discharge. Denied any new complaints. Feels much improved. Blood sugars are slightly better but still elevated. Objective: Physical Exam General: Alert, Oriented x3, Cooperative, morbidly obese HEENT: Atraumatic, PERRLA, EOMI, Normocephalic Oral: No Gingival or Mucosal Lesions/ Ulcerations, Moist oral Mucosa Neck: Supple, No JVD, Carotid Bruit, Left Lungs: Clear to auscultation, Normal air movement Cardiovascular: Regular rate, Regular Rhythm, Normal S1, Normal S2, No murmurs, No rub noted, No Gallop Abdomen: Bowel Sounds Present, Soft, Non Tender, Non-Distended, Obese, - - No abdominal bruits, no masses Extremities: No clubbing, No cyanosis, No edema, Capillary Refill Less than 3 Seconds, No Calf Tenderness, Peripheral Pulses Normal Skin: No rashes, No breakdown Musculoskeletal: No Tenderness to Palpation of Joints or Extremities Neurological: Cranial nerves II-XII grossly intact, Neuro grossly intact Psych/Mental Status: Normal Affect, Appropriate - Physical Exam Vital Signs Temp Pulse Resp BP Pulse Ox 97.7 F L 84 18 113/59 L 96 04/19/18 07:47 04/19/18 07:47 04/19/18 07:47 04/19/18 10:00 04/19/18 07:47 Oxygen Delivery Method Room Air Weight: 127.4 kg Body Mass Index (BMI) 41.4 Finger Stick Blood Glucose 331 Intake and Output for Last 24 Hours 04/17/18 04/18/18 04/19/18 23:59 23:59 23:59 Intake Total 2166 / 2166 2959 / 2959 150 / 150 Balance 2166 / 2166 2959 / 2959 150 / 150 POC Glucose 04/19/18 04/18/18 04/18/18 06:46 21:19 16:31 POC Glucose 267 H 294 H 258 H 04/18/18 11:20 POC Glucose 338 H Discharge Diet: Low fat/ Low Cholesterol, 2000 mg Sodium Diet Discharge Activity: Return to Normal Activity Home Medications: Medications to take at Discharge Levothyroxine [Synthroid] 125 mcg PO DAILY 05/03/15 Pantoprazole Sodium [Protonix] 40 mg PO DAILY 05/03/15 Tamsulosin HCl [Flomax] 0.4 mg PO DAILY 09/08/15 atenolol 100 mg tablet 100 mg PO DAILY #90 tab 01/08/18 hydrochlorothiazide 25 mg tablet 25 mg PO DAILY #90 tab 01/08/18 lisinopril 40 mg tablet 40 mg PO DAILY #90 tab 01/08/18 sitagliptin 100 mg tablet 100 mg PO DAILY 01/08/18 Buspirone HCl 10 mg PO TID PRN 04/17/18 Duloxetine HCl 60 mg PO DAILY 04/17/18 Aspirin [Aspirin, Baby] 81 mg PO DAILY@0800 tab.chew 04/19/18 Atorvastatin Calcium [Lipitor] 80 mg PO QHS #30 tab 04/19/18 Clopidogrel Bisulfate [Plavix] 75 mg PO DAILY #18 tablet 04/19/18 Insulin Glargine [Lantus SoloStar Pen] 5 units SC QHS #1 pen 04/19/18 Following Prescrptions Were Given to Patient: Atorvastatin Calcium [Lipitor] 80 mg PO QHS #30 tab Clopidogrel Bisulfate [Plavix] 75 mg PO DAILY #18 tablet Insulin Glargine [Lantus SoloStar Pen] 5 units SC QHS #1 pen Primary Care Physician: Radha Khan MD [Primary Care Provider] - Please follow up with your Primary Care Physician in: within 2 weeks Please Follow Up With: Lisa Brooks MD When: within 4 weeks Disposition: Home Minutes spent on discharge:: 40 Patient Condition:: Stable Medical Necessity - Tobacco Use Smoking Status: Never smoker Tobacco Use: Non-smoker Meaningful Use Info Meaningful Use Diagnoses (Choose all that apply): None applicable Code Visit OBSV E&M: 03180 Observation care discharge
--- OUTSIDE RECORDS SUMMARY | 2018-06-22 02:43 | XMS RPT_ITS ---
:1965 Author Organization OHIP Support Name Relationship Address Phone [facility] Unavailable [address] + [place] [address] DAFNE MARKUS Unavailable [address] + [place] [address] JORGE, TIA Unavailable [address] + [place] [address] CLE[facility] Unavailable [address] + [place] [address] GLASJAMILA, MARKUS Unavailable [address] + [place] [address] JORGE, TIA Unavailable [address] + [place] [address] [facility] Unavailable [address] + [place] [address] GLASGO, MARKUS Unavailable [address] + [place] [address] JORGE, TIA Unavailable [address] + [place] [address] [facility] Unavailable [address] + [place] [address] GLASGO, MARKUS Unavailable [address] + [place] [address] JORGE, TIA Unavailable [address] + [place] [address] [facility] Unavailable [address] + [place] [address] GLASGO, MARKUS Unavailable [address] + [place] [address] JORGE, TIA Unavailable [address] + [place] [address] [facility] Unavailable [address] + [place] [address] GLASGO, MARKUS Unavailable [address] + [place] [address] JORGE, TIA Unavailable [address] + [place] [address] [facility] Unavailable [address] + [place] [address] GLASGO, MARKUS Unavailable [address] + [place] [address] JORGE, TIA Unavailable [address] + [place] [address] CLE[facility] Unavailable [address] + [place] [address] [facility] Unavailable [address] + [place] [address] GLASGO, MARKUS Unavailable [address] + [place] [address] [facility] Unavailable [address] + [place] [address] GLASGO, MARKUS Unavailable [address] + [place] [address] MAYA, BAUTISTA Unavailable [address] + [place] [address] [facility] Unavailable [address] + [place] [address] GLASGO, MARKUS Unavailable [address] + [place] [address] MAYA, BAUTISTA Unavailable [address] + [place] [address] [facility] Unavailable [address] + [place] [address] GLASGO, MARKUS Unavailable [address] + [place] [address] MAYA, BAUTISTA Unavailable [address] + [place] [address] Care Team Providers Name Role Phone Jolliff, Radha Attending Unavailable Jolliff, Radha Referring Unavailable Jolliff, Radha Primary Care Unavailable Jolliff, Radha Primary Care Unavailable Sementi, Karlee Admitting Unavailable Sementi, Karlee Referring Unavailable Cecilia, Lisa S. Consulting Unavailable Paintsil, Lerona Attending Unavailable Jolliff, Radha Attending Unavailable Jolliff, Radha Primary Care Unavailable Sementi, Karlee Admitting Unavailable Sementi, Karlee Attending Unavailable Sementi, Karlee Referring Unavailable Jolliff, Radha Primary Care Unavailable Cecilia, Lisa S. Consulting Unavailable Sementi, Karlee Consulting Unavailable Sementi, Karlee Admitting Unavailable Paintsil, Lerona Attending Unavailable Sementi, Karlee Referring Unavailable Jolliff, Radha Primary Care Unavailable Cecilia, Lisa S. Consulting Unavailable Paintsil, Lerona Consulting Unavailable Sementi, Karlee Admitting Unavailable Paintsil, Lerona Attending Unavailable Sementi, Karlee Referring Unavailable Jolliff, Radha Primary Care Unavailable Cecilia, Lisa S. Consulting Unavailable Paintsil, Lerona Consulting Unavailable Jolliff, Radha Attending Unavailable Jolliff, Radha Primary Care Unavailable Jolliff, Radha Attending Unavailable Jolliff, Radha Referring Unavailable Jolliff, Radha Primary Care Unavailable Jacques, Sumanth Attending Unavailable Jolliff, Radha Referring Unavailable Jacques, [place] Attending Unavailable Jolliff, Radha Primary Care Unavailable Jacques, [place] Referring Unavailable Jacques, [place] Attending Unavailable Jacques, Sumanth Referring Unavailable PROBLEMS PROBLEMS DATE TYPE CONDITION / CODE ATTENDING STATUS SOURCE 04/07/2018 Unknown R22.9 - Localized Jolliff, Radha Active [place] swelling, mass and Community lump, unspecified / Hospital R22.9(ICD-10) Repository 01/08/2018 Unknown E11.9 - Type 2 Jacques, [place] Active [facility] diabetes mellitus Community without Hospital complications / Repository E11.9(ICD-10) 01/08/2018 Unknown E66.01 - Morbid Jacques, Sumanth Active [facility] (severe) obesity Community due to excess Hospital calories / Repository E66.01(ICD-10) 01/08/2018 Unknown I10 - Essential Jacques, Sumanth Active [facility] (primary) Community hypertension / Hospital I10(ICD-10) Repository 01/08/2018 Unknown Z68.42 - Body mass Jacques, [place] Active [place] index (BMI) Community 45.0-49.9, adult / Hospital Z68.42(ICD-10) Repository 01/08/2018 Unknown E78.5 - [place] Active [place] Hyperlipidemia, Community unspecified / Hospital E78.5(ICD-10) Repository 03/12/2018 Unknown S16.1XXD - Radha Lucero Active [facility] of muscle, fascia Community and tendon at neck Hospital level, subsequent Repository encounter / S16.1XXD(ICD-10) PROCEDURES PROCEDURES No Procedure Records FoundRESULTS RESULTS CONSULTATION Observed: 04/25/2018 Status: F Source: [place] 1:49 PM [facility] Medical Records Department [address] [place] [address] Consultation 04/17/18 1509 MR#: [id number] Acct: [id number] Name: KRUNAL LEOS Rep #: [id number] : 1965 52 From: Lisa Brooks MD PCP: Radha Khan MD Status: DIS TALIB Y Location: [place] [address] Problem List (1) TIA (transient ischemic attack) Status: Acute Reason for Consult Date of Consultation: 04/17/18 Reason for Consultation: TIA History of Present Illness: The patient is a 52 year old M with PMH HTN, HLD, DM, H/O Hodgkin's lymphoma, H/O KIANNA, morbid obesity, anxiety, depression, hypothyroidism admitted with episode of left sided weakness and numbness. Per patient around 10 am this morning (04/17/18) patient had acute onset of left sided numbness, felt his left leg was incoordinated and weak and could not bear weight on the same. His symptoms lasted for about 10-15 minutes, also had mild AREVALO which later improved per patient, denies any speech disturbances, or visual disturbances, dizziness or neck pain with the episode. 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 Denies any falls, balance issues, does drive, faraz not use cane or walker to ambulate. [] Past Medical History Past Medical History (Chronic Problems): Chronic Problems (Last Updated 01/08/18 @ 16:41 by Gloria Rueda) Essential (primary) hypertension (Chronic) Anxiety and depression (Chronic) Morbid obesity with BMI of 45.0-49.9, adult (Chronic) Nephrolithiasis (Chronic) Hyperlipidemia (Chronic) Diabetes mellitus, type II (Chronic) KIANNA (obstructive sleep apnea) (Chronic) Medical History: Medical History (Last Updated 01/08/18 @ 16:41 by Gloria Rueda) Essential (primary) hypertension (Chronic) I10 Anxiety and depression (Chronic) F41.9, F32.9 Morbid obesity with BMI of 45.0-49.9, adult (Chronic) E66.01, Z68.42 Nephrolithiasis (Chronic) Hyperlipidemia (Chronic) E78.5 Diabetes mellitus, type II (Chronic) E11.9 KIANNA (obstructive sleep apnea) (Chronic) G47.33 BPH (benign prostatic hyperplasia) N40.0 GERD (gastroesophageal reflux disease) K21.9 Hypothyroidism E03.9 Hodgkin disease C81.90 Allergies metoclopramide HCl [From Reglan] Allergy (Verified 04/17/18 10:20) Anaphylaxis Home Medications: Ambulatory Orders Medication Instructions Recorded Levothyroxine [Synthroid] 125 mcg PO DAILY 05/03/15 Pantoprazole Sodium [Protonix] 40 mg PO DAILY 05/03/15 Surgical History: Surgical History (Last Reviewed 01/08/18 @ 16:35 by Sumanth Hanna MD) History of left heart catheterization Z98.890 History of thoracentesis Onset Date: 2015 Z98.890 Hx of nephrolithotomy with removal of calculi Z98.890, Z87.442 Surgical History: - - Cervical lymph node resection, L breast lump removal, Lithotripsy. Psychiatric History: Anxiety, Depression Lives: Spouse/ Significant Other Smoking Status: Never smoker Tobacco Use: Non-smoker Alcohol: None Drugs: None - *Family History Maternal Family History: Family History (Last Reviewed 01/08/18 @ 16:35 by Sumanth Hanna MD) Brother Heart disease History Items: - - RA Paternal Family History: Family History (Last Reviewed 01/08/18 @ 16:35 by Sumanth Hanna MD) Brother Heart disease History Items: Diabetes Review of Systems Constitutional: Reports: - - complete ROS negative except as documented in HPI Patient Problems: Active and Suspected Problems (Last Updated 01/08/18 @ 16:41 by Gloria Rueda) TIA (transient ischemic attack) (Acute) - Physical Exam General: Alert HEENT: Normocephalic Neck: Supple Lungs: Normal air movement Cardiovascular: Normal S1, Normal S2 Abdomen: Bowel Sounds Present Extremities: No cyanosis Neurological: - - consious, alert, AoAx3, CN 2-12 grossly intact, power 5/5 all 4 extremities, no sensory loss, no cerebellar signs, gait deferred, Reflexes + B/L B/S/T/K/A, NIHSS 0 at present, mRS 0 at baseline. Psych/Mental Status: Normal Affect Vital Signs Temp Pulse Resp BP Pulse Ox 98.1 F 69 16 150/44 H 100 04/17/18 14:59 04/17/18 14:59 04/17/18 14:59 04/17/18 14:59 04/17/18 14:59 Oxygen Delivery Method Room Air Weight: 127.4 kg Body Mass Index (BMI) 41.4 Finger Stick Blood Glucose 331 Laboratory Tests Past 24 Hrs POC Glucose POC Glucose 331 H Assessment/Plan All Active Problems (Last Updated 01/08/18 @ 16:41 by Gloria Rueda) TIA (transient ischemic attack) (Acute) Acute respiratory failure with hypoxia (Resolved) Pleural effusion on left (Resolved) The patient is a 52 year old M with PMH HTN, HLD, DM, H/O Hodgkin's lymphoma, H/O KIANNA, morbid obesity, anxiety, depression, hypothyroidism admitted with episode of left sided weakness and numbness. Per patient around 10 am this morning (04/17/18) patient had acute onset of left sided numbness, felt his left leg was incoordinated and weak and could not bear weight on the same. His symptoms lasted for about 10-15 minutes, also had mild AREVALO which later improved per patient, denies any speech disturbances, or visual disturbances, dizziness or neck pain with the episode. 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 Denies any falls, balance issues, does drive, faraz not use cane or walker to ambulate. [] Impression Probable TIA Plan -ABCD2 score of atleast 5. Dual AP with ASA and Plavix for 21 days, then switch to single AP with ASA. Bleeding risks discussed -Lipitor 80 mg PO q hs -MRI brain w/o contrast -CTA head/neck showed 50% stenosis left ICA -Check LCL, Hba1c and TTE -Permissive HTN for about 24 hrs -Stroke risk factors discussed and stroke education provided -PT/OT -GI/DVT prophylaxis -Further medical management per hospitalist team -Follow up with Neurology as outpatient in 4 weeks -Please call with questions if any -Thank you for allowing us to participate in patient's care and management. Code Visit Inpatient E AND M: 63118 Init Hosp L3 04/25/18 1349 <Electronically signed by Lisa Brooks MD> Date Lisa Brooks MD Cosigner Signature (if applicable): Date CC: Elpidio Brooks MD; Radha Khan MD; Karlee Pritchett Signed 12 LEAD ELECTROCARDIOGRAM Observed: 04/21/2018 Status: F Source: [place] 9:22 AM [facility] REPOSITORY [facility] Cardiovascular Services [address] [place] [id number] 12 Lead EKG 04/17/18 1050 MR#: [id number] Acct: [id number] Name: KRUNAL LEOS Rep #: [id number] : 1965 52 From: Sumanth Hanna MD Attending Dr: Eleni Young MD Status: DIS TALIB Ordering Dr: Luli Alex DO Date: 04/17/18 Location: [facility] Sex: M C Admitted: 04/17/18 Test Reason : NEURO S/SX Blood Pressure : / mmHG Vent. Rate : 067 BPM Atrial Rate : 067 BPM P-R Int : 148 ms QRS Dur : 110 ms QT Int : 434 ms P-R-T Axes : 020 -05 104 degrees QTc Int : 458 ms Normal sinus rhythm Voltage criteria for left ventricular hypertrophy Inferior infarct (cited on or before 17-APR-2018) T wave abnormality, consider lateral ischemia Abnormal ECG Confirmed by SUMANTH HANNA MD ([id number]), editor greeting card PADMINI GRECO ([id number]) on 04/21/2018 9:21:57 AM Referred By: Savannah Pritchett Confirmed By:SUMANTH HANNA MD 04/21/1822 Date Suamnth Hanna MD CC: Eleni Young MD; Radha Khan MD; Karlee Pritchett; Luli Alex DO Signed DISCHARGE SUMMARY Observed: 04/20/2018 Status: F Source: [place] 11:42 AM [facility] REPOSITORY [facility] Medical Records Department [address] [place] [address] Discharge Summary 04/19/18 1026 MR#: [id number] Acct: [id number] Name: KRUNAL LEOS Rep #: [id number] : 1965 52 From: Eleni Young MD PCP: Radha Khan MD Status: DIS TALIB Y Location: [place] [address] Discharge Date and Diagnosis Date of Admission: 04/17/18 Date of Discharge: 04/19/18 - Primary Discharge Diagnosis Active and Suspected Problems (Last Reviewed 04/17/18 @ 19:06 by Savannah Pritchett DO) TIA (transient ischemic attack) (Acute) Uncontrolled hypertension Uncontrolled type II DM Uncontrolled hyperlipidemia. - Secondary Discharge Diagnosis Chronic Problems (Last Reviewed 04/17/18 @ 19:06 by Savannah Pritchett DO) Essential (primary) hypertension (Chronic) Anxiety and depression (Chronic) Morbid obesity with BMI of 45.0-49.9, adult (Chronic) Nephrolithiasis (Chronic) Hyperlipidemia (Chronic) Diabetes mellitus, type II (Chronic) KIANNA (obstructive sleep apnea) (Chronic) He tells me that he no longer has KIANNA since he lost 50 lbs and he no longer wears CPAP Hospital Course and Treatment Imaging Results: Clinical Impression(s) from Imaging Studies Chest X-Ray 04/17/18 10:38 IMPRESSION: Stable cardiomegaly with hyperexpansion. No acute finding. Electronically Signed: Roman Pineda MD at 12:55 EST , Service support , Head CTA 04/17/18 10:38 IMPRESSION: Normal [place] without a demonstrated aneurysm or hemodynamically significant stenosis. Electronically Signed: Issa Goncalves MD at 12:21 EST , Service support , Neck CTA 04/17/18 10:38 IMPRESSION: Normal [place] without a demonstrated aneurysm or hemodynamically significant stenosis. Electronically Signed: Issa Goncalves MD at 12:21 EST , Service support , Brain MRI 04/17/18 14:28 IMPRESSION: Mild periventricular white matter ischemic changes without evidence for acute infarct. 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 He was admitted complaining of sudden onset of numbness and weakness in the left arm and leg. He denied any slurred speech. CT scan of the head on admission showed no acute findings. CTA of the neck showed 50% stenosis in the mid left common carotid artery with no aneurysm or dissection. There was moderate atherosclerotic plaque in both common carotid artery bulbs. CT of the brain showed a normal [place] with no significant stenosis. Patient was admitted to telemetry bed. No acute events on telemetry. Neurology was consulted. MRI of the brain showed mild periventricular white matter ischemic change without any evidence of acute infarct. 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 2D echo showed EF of 55%, evidence of diastolic dysfunction. Negative bubble study. No acute events was seen on telemetry. He was recommended to be on dual antiplatelets therapy for 21 days and switched only to aspirin. Patient's blood sugars were uncontrolled during the stay. He is on Januvia and metformin. His HbA1c was 9.6. Patient says this is improved from recent readings of 10. Patient is not on insulin. He was started on Lantus 5 units nightly. Dietitian was consulted and patient was advised to follow within the outpatient. He was advised to follow a strict ADA diet, moderate exercises, monitor his blood sugars at least 3 times a day. His blood pressures were initially uncontrolled; permissive hypertension was allowed. He improved with resumption of his home blood pressure medication. He was discharged on high-dose statins for uncontrolled hyperlipidemia. Strict low-fat diet and exercises were recommended. Subjective: And was seen and examined on the day of discharge. Denied any new complaints. Feels much improved. Blood sugars are slightly better but still elevated. Objective: Physical Exam General: Alert, Oriented x3, Cooperative, morbidly obese HEENT: Atraumatic, PERRLA, EOMI, Normocephalic Oral: No Gingival or Mucosal Lesions/ Ulcerations, Moist oral Mucosa Neck: Supple, No JVD, Carotid Bruit, Left Lungs: Clear to auscultation, Normal air movement Cardiovascular: Regular rate, Regular Rhythm, Normal S1, Normal S2, No murmurs, No rub noted, No Gallop Abdomen: Bowel Sounds Present, Soft, Non Tender, Non-Distended, Obese, - - No abdominal bruits, no masses Extremities: No clubbing, No cyanosis, No edema, Capillary Refill Less than 3 Seconds, No Calf Tenderness, Peripheral Pulses Normal Skin: No rashes, No breakdown Musculoskeletal: No Tenderness to Palpation of Joints or Extremities Neurological: Cranial nerves II-XII grossly intact, Neuro grossly intact Psych/Mental Status: Normal Affect, Appropriate - Physical Exam Vital Signs Temp Pulse Resp BP Pulse Ox 97.7 F L 84 18 113/59 L 96 04/19/18 07:47 04/19/18 07:47 04/19/18 07:47 04/19/18 10:00 04/19/18 07:47 Oxygen Delivery Method Room Air Weight: 127.4 kg Body Mass Index (BMI) 41.4 Finger Stick Blood Glucose 331 Intake and Output for Last 24 Hours Intake Total 2166 / 2166 2959 / 2959 150 / 150 Balance 2166 / 2166 2959 / 2959 150 / 150 POC Glucose POC Glucose 267 H 294 H 258 H POC Glucose 338 H Discharge Diet: Low fat/ Low Cholesterol, 2000 mg Sodium Diet Discharge Activity: Return to Normal Activity Home Medications: Medications to take at Discharge Levothyroxine [Synthroid] 125 mcg PO DAILY 05/03/15 Pantoprazole Sodium [Protonix] 40 mg PO DAILY 05/03/15 Tamsulosin HCl [Flomax] 0.4 mg PO DAILY 09/08/15 atenolol 100 mg tablet 100 mg PO DAILY #90 tab 01/08/18 hydrochlorothiazide 25 mg tablet 25 mg PO DAILY #90 tab 01/08/18 lisinopril 40 mg tablet 40 mg PO DAILY #90 tab 01/08/18 sitagliptin 100 mg tablet 100 mg PO DAILY 01/08/18 Buspirone HCl 10 mg PO TID PRN 04/17/18 Duloxetine HCl 60 mg PO DAILY 04/17/18 Aspirin [Aspirin, Baby] 81 mg PO DAILY@0800 tab.chew 04/19/18 Atorvastatin Calcium [Lipitor] 80 mg PO QHS #30 tab 04/19/18 Clopidogrel Bisulfate [Plavix] 75 mg PO DAILY #18 tablet 04/19/18 Insulin Glargine [Lantus SoloStar Pen] 5 units SC QHS #1 pen 04/19/18 Following Prescrptions Were Given to Patient: Atorvastatin Calcium [Lipitor] 80 mg PO QHS #30 tab Clopidogrel Bisulfate [Plavix] 75 mg PO DAILY #18 tablet Insulin Glargine [Lantus SoloStar Pen] 5 units SC QHS #1 pen Primary Care Physician: Radha Khan MD [Primary Care Provider] - Please follow up with your Primary Care Physician in: within 2 weeks Please Follow Up With: Lisa Brooks MD When: within 4 weeks Disposition: Home Minutes spent on discharge:: 40 Patient Condition:: Stable Medical Necessity - Tobacco Use Smoking Status: Never smoker Tobacco Use: Non-smoker Meaningful Use Info Meaningful Use Diagnoses (Choose all that apply): None applicable Code Visit OBSV E AND M: 28710 Observation care discharge 04/20/18 1142 <Electronically signed by Eleni Young MD> Date Eleni Young MD Cosigner Signature (if applicable): Date CC: Eleni Young MD; Radha Khan MD Signed DISCHARGE INSTRUCTION Observed: 04/19/2018 Status: F Source: [place] 10:26 [facility] REPOSITORY [facility] Medical Records Department [address] [place] [address] Instructions for Home/Discharge Instructions 04/19/18 1024 MR#: [id number] Acct: [id number] Name: KRUNAL LEOS Rep #: [id number] : 1965 52 From: Eleni Young MD PCP: Radha Khan MD Status: ADM TALIB - Discharge Diagnoses Current Active Problems: Current Active and Chronic Problems (Last Reviewed 04/17/18 @ 19:06 by Savannah Pritchett DO) TIA (transient ischemic attack) (Acute) Reason(s) for Visit for Discharge Instructions: Left sided weakness You will use the following diet at home:: Calorie/Carbohydrate Controlled (specify 1200, 1400, etc), Cardiac Your food should be the consistency of: Regular Your liquids should be the consistency of: Regular/Thin Discharge Activity: Return to Normal Activity Additional Instructions: Continue to take all your medications as prescribed. You will be given a prescription for blood pressure machine. Take your blood pressure every day and show a log of your readings to your primary care doctor when you follow-up with him. Follow-up with a neurologist within 4 weeks. Continue to remain active. Measure your blood sugars at least 3 times a day. You are recommended to follow-up with a dietitian in the outpatient. Allergies/Adverse Reactions: Allergies metoclopramide HCl [From Reglan] Allergy (Verified 04/17/18 10:20) Anaphylaxis Medications to take at Discharge Levothyroxine [Synthroid] 125 mcg PO DAILY 05/03/15 Pantoprazole Sodium [Protonix] 40 mg PO DAILY 05/03/15 Tamsulosin HCl [Flomax] 0.4 mg PO DAILY 09/08/15 atenolol 100 mg tablet 100 mg PO DAILY #90 tab 01/08/18 hydrochlorothiazide 25 mg tablet 25 mg PO DAILY #90 tab 01/08/18 lisinopril 40 mg tablet 40 mg PO DAILY #90 tab 01/08/18 sitagliptin 100 mg tablet 100 mg PO DAILY 01/08/18 Buspirone HCl 10 mg PO TID PRN 04/17/18 Duloxetine HCl 60 mg PO DAILY 04/17/18 Aspirin [Aspirin, Baby] 81 mg PO DAILY@0800 tab.chew 04/19/18 Atorvastatin Calcium [Lipitor] 80 mg PO QHS #30 tab 04/19/18 Clopidogrel Bisulfate [Plavix] 75 mg PO DAILY #18 tablet 04/19/18 Insulin Glargine [Lantus SoloStar Pen] 5 units SC QHS #1 pen 04/19/18 The following prescriptions were given: Atorvastatin Calcium [Lipitor] 80 mg PO QHS #30 tab Clopidogrel Bisulfate [Plavix] 75 mg PO DAILY #18 tablet Insulin Glargine [Lantus SoloStar Pen] 5 units SC QHS #1 pen Primary Care Physician: Radha Khan MD [Primary Care Provider] - Please follow up with your Primary Care Physician in: within 2 weeks Test Results: Test results from this visit will be discussed in further detail at your follow-up appointment, if applicable. Please Follow Up With: Lisa Brooks MD When: within 4 weeks Proposed Discharge Date: 04/19/18 04/19/18 1026 <Electronically signed by Eleni Young MD> Date Eleni Young MD CC: Elpidio Brooks MD; Radha Khan MD Signed BEDSIDE GLUCOSE Collected: 04/19/2018 Status: F Source: [place] 6:46 AM [facility] REPOSITORY TYPE CODE TESTS RESULT OUT OF REFERENCE UNITS RANGE LAB L501.080 70-110 mg/dL High BEDSIDE GLU 267 Result Comment: MANAGEMENT OF PATIENT CARE PER NURSING PROTOCOL Performed By: #### L501.080 #### [facility] Laboratory Point of Care [address] [place] [address] BEDSIDE GLUCOSE Collected: 04/18/2018 Status: F Source: [place] 9:19 PM [facility] REPOSITORY TYPE CODE TESTS RESULT OUT OF REFERENCE UNITS RANGE LAB L501.080 70-110 mg/dL High BEDSIDE GLU 294 Result Comment: MANAGEMENT OF PATIENT CARE PER NURSING PROTOCOL Performed By: #### L501.080 #### [facility] Point of Care [address] [place] [address] BEDSIDE GLUCOSE Collected: 04/18/2018 Status: F Source: [place] 4:31 PM [facility] REPOSITORY TYPE CODE TESTS RESULT OUT OF REFERENCE UNITS RANGE LAB L501.080 70-110 mg/dL High BEDSIDE GLU 258 Result Comment: MANAGEMENT OF PATIENT CARE PER NURSING PROTOCOL Performed By: #### L501.080 #### [facility] Point of Care [address] [place] [address] BEDSIDE GLUCOSE Collected: 04/18/2018 Status: F Source: [place] 11:20 AM [facility] REPOSITORY TYPE CODE TESTS RESULT OUT OF REFERENCE UNITS RANGE LAB L501.080 70-110 mg/dL High BEDSIDE GLU 338 Result Comment: MANAGEMENT OF PATIENT CARE PER NURSING PROTOCOL Performed By: #### L501.080 #### [facility] Point of Care [address] [place] [address] BEDSIDE GLUCOSE Collected: 04/18/2018 Status: F Source: MARCELINO 7:08 AM [facility] REPOSITORY TYPE CODE TESTS RESULT OUT OF REFERENCE UNITS RANGE LAB L501.080 70-110 mg/dL High BEDSIDE GLU 243 Result Comment: MANAGEMENT OF PATIENT CARE PER NURSING PROTOCOL Performed By: #### L501.080 #### [facility] Point of Care [address] [place] [address] CBC-COMPLETE BLOOD CNT Collected: 04/18/2018 Status: F Source: MARCELINO NO DIFF 5:48 AM [facility] REPOSITORY TYPE CODE TESTS RESULT OUT OF RANGE REFERENCE UNITS LAB L100.1000 4.4-11.0 K/mm3 Normal WBC 6.3 LAB L100.1200 4.6-6.2 M/mm3 Normal RBC 4.93 LAB L100.1300 13.0-16.5 g/dl Low HGB 12.7 LAB L100.1400 40-54 % Low HCT 39.2 LAB L100.1500 80-94 fL Low MCV 79.5 LAB L100.1600 27.0-32.0 pg Low MCH 25.8 LAB L100.1700 32-36 g/gl Normal MCHC 32.4 LAB L100.1810 11.6-14.6 % High RDW CV 15.2 LAB L100.1820 35.1-43.9 fl High RDW SD 44.1 LAB L100.1900 150-450 K/mm3 Normal PLT 164 LAB L100.2000 6.2-12.0 fl Normal MPV 10.2 Performed By: #### L100.0500 #### [facility] [address] [place], [address] BASIC METABOLIC Collected: 04/18/2018 Status: F Source: SLIGO PROFILE ([facility]) 5:48 AM [facility] REPOSITORY TYPE CODE TESTS RESULT OUT OF RANGE REFERENCE UNITS LAB L501.0100 74-106 mg/dL High GLU 219 Result Comment: Glucose result greater than or equal to 200 mg/dL suggests DIABETES MELLITUS per A.D.A. criteria. Please note revised GLUCOSE reference range effective 2017. LAB L501.1000 7-18 mg/dL Normal BUN 14 LAB L501.1100 0.70-1.30 mg/dL Normal CREAT,SERUM 0.77 Result Comment: The validity of the calculated GFR AND GFRAA in patients over 70 years has not been determined. Clinical correlation is essential. LAB L501.1110 >60 mL/min Normal EST GFR 112 Result Comment: Non- GFR Calc LAB L501.1115 >60 mL/min Normal EST GFR - AA 136 Result Comment: GFR Calc LAB L501.1255 ml/min Normal Estimated CRCL 109.67 LAB L501.1300 10-20 RATIO BUN/CRE Normal 18.3 LAB L501.2200 8.5-10 mg/dL Low .1 CA 8.3 LAB L501.5300 136-14 mmol/L 5 NA Normal 137 LAB L501.5600 3.5-5. mmol/L 1 K Normal 3.5 LAB L501.5900 98-107 mmol/L CL Normal 101 LAB L501.6100 21.0-3 mmol/L 2.0 CO2 Normal 23.0 LAB L501.6200 5-15 GAP Normal 13 Performed By: #### L500.2500, L500.4100 #### [facility] [address] [place], [address] LIPID PROFILE Collected: 04/18/2018 Status: F Source: MARCELINO 5:48 AM [facility] REPOSITORY TYPE CODE TESTS RESULT OUT OF RANGE REFERENCE UNITS LAB L501.4900 200 mg/dL Normal CHOL 161 Result Comment: <200 mg/dL Desirable 200-240 mg/dL Borderline >240 mg/dL High Risk LAB L501.5000 mg/dL High TRIG 412 Result Comment: The drugs N-Acetylcysteine and Metamizole may falsely depress this assay. TRIGLYCERIDE IS GREATER THAN 400 mg/dL. LDL RESULT IS INVALID AND WILL NOT BE REPORTED. Serum Triglycerides Reference Interval Normal <150 mg/dL Borderline high 150 - 199 mg/dL High 200 - 499 mg/dL Very High > or = 500 mg/dL LAB L501.6400 mg/dL Low HDL 33 Result Comment: The drugs N-Acetylcysteine and Metamizole may falsely depress this assay. Reference Range HDL <40 mg/dL Low HDL Cholesterol HDL >or= 60 mg/dL High HDL Cholesterol LAB L501.6500 0-130 mg/dL Test Normal not performed LDL LAB L501.6600 5-40 mg/dL Test Normal not performed VLDL Performed By: #### L500.2500, L500.4100 #### [facility] [address] [place], [address] BEDSIDE GLUCOSE Collected: 04/18/2018 Status: F Source: MARCELINO 12:43 AM [facility] REPOSITORY TYPE CODE TESTS RESULT OUT OF REFERENCE UNITS RANGE LAB L501.080 70-110 mg/dL High BEDSIDE GLU 218 Result Comment: MANAGEMENT OF PATIENT CARE PER NURSING PROTOCOL Performed By: #### L501.080 #### [facility] Point of Care [address] [facility] [place] [address] BEDSIDE GLUCOSE Collected: 04/17/2018 Status: F Source: MARCELINO 9:14 PM [facility] REPOSITORY TYPE CODE TESTS RESULT OUT OF REFERENCE UNITS RANGE LAB L501.080 70-110 mg/dL High BEDSIDE GLU 302 Result Comment: MANAGEMENT OF PATIENT CARE PER NURSING PROTOCOL Performed By: #### L501.080 #### [facility] Point of Care [address] [place] [address] ECHO, COMPLETE W/ Observed: 04/17/2018 Status: F Source: MARCELINO CONTRAST 8:00 PM [facility] REPOSITORY [facility] Cardiovascular Services [address] [place] [address] Echo Complete W/ Contrast 04/17/18 1504 MR#: [id number] Acct: [id number] Name: KRUNAL LEOS Rep #: [id number] : 1965 52 From: Clint Juarez MD Attending Dr: Karlee Pritchett Status: ADM TALIB Ordering Dr: Savannah Pritchett DO Date: 04/17/18 Location: U Sex: M C Admitted: 04/17/18 Reason For Study: TIA/CVA Procedure This was a 2D Doppler, Color Flow transthoracic echocardiogram. The study was technically difficult. Contrast injection was performed. Exam performed portable in patient room. Left Ventricle Based upon the 2D echocardiographic and contrast enhanced images obtained there appears to be grossly normal left ventricular size, wall motion, and systolic function. The estimated ejection fraction is 55 %. There is evidence of diastolic dysfunction. Right Ventricle Normal RV size. Normal systolic function. Atria The left atrium is mildly enlarged. Normal right atrium. No doppler evidence for ASD. Mitral Valve There is no mitral annular calcification. Normal mitral valve. Trivial mitral valve insufficiency. Tricuspid Valve Normal tricuspid valve. Trivial tricuspid valve insufficiency. Unable to estimate RV systolic pressure/pulmonary artery pressure due to technically difficult study. Aortic Valve Trisinus/trileaflet aortic valve. Mild focal aortic valve calcification. Pulmonic Valve The pulmonic valve is not well visualized. Great Vessels Normal sized aortic root. Pericardium/Pleural No pericardial effusion. Medication Diluted definity 3ml given slow IV push to enhance endocardial definition. Performed a rapid injection of agitated mix of 9 cc saline and 1cc air to assess for atrial septal defect. MMode/2D Measurements AND Calculations Ao root diam: 3.8 cm LAV(MOD-bp): 86.7 ml LVAd ap4: 40.4 cm2 LAV(MOD-bp) Indexed: 36.4 ml/m2 EDV(MOD-sp4): 160.8 ml LAV(MOD-sp2): 77.7 ml EDV(sp4-el): 164.9 ml LAV(MOD-sp4): 85.8 ml LVAs ap4: 23.6 cm2 ESV(MOD-sp4): 66.9 ml ESV(sp4-el): 67.6 ml EF(MOD-sp4): 58.4 % EF(sp4-el): 59.0 % SV(MOD-sp4): 93.8 ml SV(sp4-el): 97.3 ml LA A4 area: 27.4 cm2 RA A4 area: 20.4 cm2 Time Measurements MV dec time: 0.20 sec Doppler Measurements AND Calculations MV E max chin: 95.9 cm/sec Lat Peak E' Chin: 9.2 cm/sec Med Peak E' Chin: 4.8 cm/sec MV A max chin: 89.5 cm/sec E/E' lat: 10.5 E/E' med: 19.8 MV E/A: 1.1 MV V2 max: 105.6 cm/sec MV P1/2t max chin: 107.9 cm/sec Ao V2 max: 138.6 cm/sec MV max P.5 mmHg MV P1/2t: 104.8 msec Ao max P.7 mmHg MV V2 mean: 61.9 cm/sec MV dec slope: 301.6 cm/sec2 MV mean P.8 mmHg MV V2 VTI: 31.8 cm MVA(P1/2t): 2.1 cm2 LV V1 max: 99.7 cm/sec PA V2 max: 76.2 cm/sec LV V1 max P.0 mmHg Interpretation Summary The study was technically difficult. Contrast injection was performed. Based upon the 2D echocardiographic and contrast enhanced images obtained there appears to be grossly normal left ventricular size, wall motion, and systolic function. The estimated ejection fraction is 55 %. The left atrium is mildly enlarged. Trivial mitral valve insufficiency. Trivial tricuspid valve insufficiency. Mild focal aortic valve calcification. Unable to estimate RV systolic pressure/pulmonary artery pressure due to technically difficult study. There is evidence of diastolic dysfunction. Ordering Physician: Karlee Pritchett Referring Physician: Savannah Pritchett Performed By: Alberto Shah RCS 04/17/181958 Date Clint Juarez MD CC: Radha Khan MD; Karlee Pritchett Date Dictated: 04/17/18 1504 Date Transcribed: 04/17/181958 Paraprofessional Interpreter: Signed HISTORY AND PHYSICAL Observed: 04/17/2018 Status: F Source: SLIGO EXAM 7:19 PM [facility] REPOSITORY [facility] Medical Records Department [address] [place] [address] History and Physical 04/17/18 1438 MR#: [id number] Acct: [id number] Name: KRUNAL LEOS Rep #: [id number] : 1965 52 From: Savannah Pritchett DO PCP: Radha Khan MD Status: ADM TALIB Y Location: [place] [address] Problem List (1) TIA (transient ischemic attack) Status: Acute (2) Essential (primary) hypertension Status: Chronic (3) Anxiety and depression Status: Chronic (4) Morbid obesity with BMI of 45.0-49.9, adult Status: Chronic (5) Nephrolithiasis Status: Chronic (6) Hyperlipidemia Status: Chronic Qualifiers: Hyperlipidemia type: unspecified Qualified Code(s): E78.5 - Hyperlipidemia, unspecified (7) Diabetes mellitus, type II Status: Chronic Qualifiers: Diabetes mellitus terminal worker insulin use: without terminal worker use Diabetes mellitus complication status: with unspecified complications Qualified Code(s): E11.8 - 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 with unspecified complications (8) KIANNA (obstructive sleep apnea) Status: Chronic Comment: He tells me that he no longer has KIANNA since he lost 50 lbs and he no longer wears CPAP History of Present Illness Date of Admission: 04/17/18 Chief Complaint: numbness and weakness in the LUE and the LLE of sudden onset lasting 10-15 minutes The patient is a 52 year old M with a past medical history of morbid obesity, diabetes mellitus type 2 poorly controlled, hypertension, obstructive sleep apnea, chronic anxiety/depression, hyperlipidemia, BPH, GERD, hypothyroidism, history of Hodgkin's disease in the 1970s, gout, and recurrent episodes of nephrolithiasis who presented to the emergency department at [facility] on 04/17/2018 complaining of sudden onset of numbness and weakness in his left arm and left leg. He was standing at the time of onset. He did not fall but he sat into a chair. He denies any slurred speech or difficulty getting his words out and also denied any difficulty swallowing. He admits to a mild headache. The symptoms resolved in 10-15 minutes and he drove himself to the emergency department. He denies any history of stroke. Vital signs at presentation to the emergency room were temperature 97.5, pulse rate 70, blood pressure 161/87, respiratory rate 20 and he was 100% saturated on room air. CBC was remarkable only for a decreased MCV at 78.1 with an increased RDW at 15.6. PT and PTT were within normal limits. Sodium was mildly decreased at 133 and the BUN was elevated at 22 with a creatinine of 0.97. Hemoglobin A1c is 9.6. Phosphorus and magnesium were within normal limits. Serum iron is low at 51 with a normal TIBC and a normal ferritin. LFTs were unremarkable. Troponin was less than 0.015 and the TSH was normal at 1.6. Stat CT brain showed no acute findings. CTA of the neck showed a 50% stenosis in the mid left common carotid artery with no aneurysm or dissection. There was moderate atherosclerotic plaque in both common carotid artery bulbs with no significant stenosis in either proximal internal carotid artery. CTA of the brain showed a normal upper [place] of [place] with no significant stenosis. He is being admitted to a monitored bed on the progressive care unit for TIA. Dr. Brooks has been consulted and he has been started on aspirin 81 mg p.o. daily with the first dose now. Stroke protocol has been initiated. Past Medical History Past Medical History (Chronic Problems): Chronic Problems (Last Updated 01/08/18 @ 16:41 by Gloria Rueda) Essential (primary) hypertension (Chronic) Anxiety and depression (Chronic) Morbid obesity with BMI of 45.0-49.9, adult (Chronic) Nephrolithiasis (Chronic) Hyperlipidemia (Chronic) Diabetes mellitus, type II (Chronic) KIANNA (obstructive sleep apnea) (Chronic) He tells me that he no longer has KIANNA since he lost 50 lbs and he no longer wears CPAP Medical History: Medical History (Last Reviewed 04/17/18 @ 19:06 by Savannah Pritchett DO) Essential (primary) hypertension (Chronic) I10 Anxiety and depression (Chronic) F41.9, F32.9 Morbid obesity with BMI of 45.0-49.9, adult (Chronic) E66.01, Z68.42 Nephrolithiasis (Chronic) Hyperlipidemia (Chronic) E78.5 Diabetes mellitus, type II (Chronic) E11.9 KIANNA (obstructive sleep apnea) (Chronic) G47.33 He tells me that he no longer has KIANNA since he lost 50 lbs and he no longer wears CPAP BPH (benign prostatic hyperplasia) N40.0 GERD (gastroesophageal reflux disease) K21.9 Hypothyroidism E03.9 Hodgkin disease C81.90 Allergies metoclopramide HCl [From Reglan] Allergy (Verified 04/17/18 10:20) Anaphylaxis Home Medications: Ambulatory Orders Medication Instructions Recorded Levothyroxine [Synthroid] 125 mcg PO DAILY 05/03/15 Pantoprazole Sodium [Protonix] 40 mg PO DAILY 05/03/15 Surgical History: Surgical History (Last Reviewed 04/17/18 @ 19:06 by Savannah Pritchett DO) History of left heart catheterization Z98.890 History of thoracentesis Onset Date: 2015 Z98.890 Hx of nephrolithotomy with removal of calculi Z98.890, Z87.442 Surgical History: - - Cervical lymph node resection, L breast lump removal, Lithotripsy. Psychiatric History: Anxiety, Depression Smoking Status: Never smoker Tobacco Use: Non-smoker Alcohol: None Drugs: None - *Family History Maternal Family History: Family History (Last Reviewed 04/17/18 @ 19:07 by Savannah Pritchett DO) Brother Heart disease History Items: - - RA in his mother Paternal Family History: Family History (Last Reviewed 04/17/18 @ 19:07 by Savannah Pritchett DO) Brother Heart disease History Items: Diabetes, - - his father of pancreatitis.....he was a non-drinker and the etiology of the pancreatitis is unknown. His father also had nephrolithiasis Sibling Family History: Family History (Last Reviewed 04/17/18 @ 19:07 by Savannah Pritchett DO) Brother Heart disease History Items: - - brother who is was an alcoholic and had heart disease Review of Systems Constitutional: Denies: Anorexia, Chills, Fever, Malaise, Weight Change Eyes: Denies: Blurred vision, Vision Change HEENT: Denies: Difficulty Swallowing, Dysphasia, Head Aches, Sinus Congestion, Sinus Drainage, Visual Changes Cardiovascular: Reports: Light Headedness - episodic. Denies: Chest Pain, Palpitations Respiratory: Denies: Cough, Shortness of breath at rest, Sputum production Gastrointestinal: Denies: Abdominal Pain, Nausea, Vomiting Genitourinary: Denies: Dysuria Musculoskeletal: Denies: Joint Pain, Joint Tenderness Skin: Denies: Jaundice, Rash, Wounds Neurological: Reports: Focal weakness - L arm and leg, Numbness, Tingling. Denies: Blurred vision, Change in Speech, Slurred speech, Confusion, Difficulty swallowing, Tremor, Seizures Psychiatric: Denies: Anxiety, Depression, Homicidal Ideations, Suicidal Ideations Endocrine: Reports: Hx of Irradiation - he had radiation to the chest in the 1970's for Hodgekin's and he also had chemo. Denies: Change in Body Habitus Hematologic/ Lymphatic: Denies: Easy Bruising, Easy Bleeding, Hx of blood clot VTE Information - Inpt Only VTE Present on Admission: No VTE Mechan Device Prophylaxis: SCD's, Knee High LAUREN Hose VTE Pharm Prophylaxis ordered?: Yes Patient Problems: Active and Suspected Problems (Last Updated 01/08/18 @ 16:41 by Gloria Rueda) TIA (transient ischemic attack) (Acute) - Physical Exam General: Alert, Oriented x3, Cooperative HEENT: Atraumatic, PERRLA, EOMI, Normocephalic Oral: No Gingival or Mucosal Lesions/ Ulcerations, Dry Mucosa Neck: Supple, No JVD, Carotid Bruit, Left Lungs: Clear to auscultation, Normal air movement Cardiovascular: Regular rate, Regular Rhythm, Normal S1, Normal S2, No murmurs, No rub noted, No Gallop Abdomen: Bowel Sounds Present, Soft, Non Tender, Non-Distended, Obese, - - No abdominal bruits, no masses Extremities: No clubbing, No cyanosis, No edema, Capillary Refill Less than 3 Seconds, No Calf Tenderness, Peripheral Pulses Normal Skin: No rashes, No breakdown Musculoskeletal: No Tenderness to Palpation of Joints or Extremities Neurological: Cranial nerves II-XII grossly intact, Neuro grossly intact Psych/Mental Status: Normal Affect, Appropriate Vital Signs Temp Pulse Resp BP Pulse Ox 97.5 F L 70 26 H 160/85 H 100 04/17/18 10:17 04/17/18 14:12 04/17/18 14:12 04/17/18 13:22 04/17/18 14:12 Oxygen Delivery Method Room Air Weight: 286 lb 6.087 oz Body Mass Index (BMI) 43.5 Finger Stick Blood Glucose 331 Laboratory Tests Past 24 Hrs POC Glucose POC Glucose 331 H Assessment/Plan All Active Problems (Last Updated 01/08/18 @ 16:41 by Gloria Rueda) TIA (transient ischemic attack) (Acute) Acute respiratory failure with hypoxia (Resolved) Pleural effusion on left (Resolved) Impressions 1. TIA -patient has multiple risk factors for cerebrovascular and cardiovascular disease which include obesity, hypertension, hyperlipidemia, uncontrolled diabetes mellitus and a family history of heart disease. He has been started on ASA and a statin. 2. Uncontrolled diabetes mellitus type 2 3. Hypertension 4. Hyperlipidemia 5. Morbid obesity 6. Hypothyroidism 7. GERD 8. Nephrolithiasis 9. History of Hodgkin's disease in the 1970s treated with chemotherapy and radiation to his chest 10. Gout 11. Anxiety/depression 12. KIANNA-previously treated with CPAP however the patient states he lost 50 pounds and he no longer needs CPAP. 13. L common carotid stenosis with L carotid bruit Admit to a monitored bed on PCU Initiate Stroke protocol MRI of the head If unable to have MRI will CTA of the head and the neck - done Neurology consult Antiplatelet therapy with ASA PT and OT consults Bedside swallow eval Hydrate Lipid profile in the AM EKG Start a statin Overnight trending pulse ox......with his body habitus and BMI I suspect he still has sleep apnea......can not tell me how long it has been since his last sleep study and how much weight he has gained since then Code Visit OBSV E AND Savannah: [id number] Initial observation care L3 04/17/181918 <Electronically signed by Savannah Pritchett DO> Date Savannah Pritchett DO Cosigner Signature: Date (if applicable) CC: Radha Khan MD; Karlee Pritchett Signed BEDSIDE GLUCOSE Collected: 04/17/2018 Status: F Source: MARCELINO 4:51 PM [facility] REPOSITORY TYPE CODE TESTS RESULT OUT OF REFERENCE UNITS RANGE LAB L501.080 70-110 mg/dL High BEDSIDE GLU 180 Result Comment: MANAGEMENT OF PATIENT CARE PER NURSING PROTOCOL Performed By: #### L501.080 #### [facility] Point of Care [address] [place] [address] BRAIN WITHOUT Observed: 04/17/2018 Status: F Source: MARCELINO CONTRAST 2:37 PM [facility] REPOSITORY [facility] Imaging Services [address] [place] [address] Brain without Contrast MR#: [id number] Acct: [id number] Name: KRUNAL LEOS Rep #: [id number] : 1965 M 52 From: Sameer Aparicio MD PCP: Radha Khan MD Status: ADM TALIB Study: Brain without Contrast Date of Exam: 04/17/18 Exam# [id number] Ordering Dr: Savannah Pritchett DO STUDY: MRI BRAIN WITHOUT CONTRAST REASON FOR EXAM: Male, 52 years old. Left arm and leg weakness and numbness history of lymphoma TECHNIQUE: Standardized multiplanar fat and water weighted pulse sequences were obtained. COMPARISON: CTA of the brain on April 17, 2018 FINDINGS: Normal size of the ventricles and extra-axial spaces for the patient's age. 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 Normal thalami. There is no extra-axial fluid accumulation. Normal flow voids within the major intracranial circulation suggesting patency by spin echo criteria. Normal sella turcica, pituitary gland, infundibular stalk, optic chiasm and hypothalamus. Normal tectal plate and pineal gland. Normal midbrain, and medulla. Normal cerebellum. Normal basal cisterns. Normal bilateral temporal bones. Normal bilateral internal auditory canals. No demonstrated orbital abnormality, within the constraints of a routine brain study. Small mucous retention cyst in left maxillary sinus. Normal calvarium and skull base. Normal visualized soft tissue structures. Normal visualized upper cervical spine. MRI/Brain without Contrast IMPRESSION: Mild periventricular white matter ischemic changes without evidence for acute infarct. Old tiny lacunar infarct in the right pontine body Electronically Signed: Sameer Aparicio MD at 17:29 EST , Service support , CC: Radha Khan MD; Karlee Pritchett Paraprofessional Interpreter: Signed EMERGENCY DEPARTMENT Observed: 04/17/2018 Status: F Source: SLIGO SUMMARY 1:59 PM [facility] REPOSITORY [facility] Medical Records Department [address] [place] [address] Emergency Department Summary 04/17/18 1355 MR#: [id number] Acct: [id number] Name: KRUNAL LEOS Rep #: [id number] : 1965 52 From: Luli Alex DO PCP: Radha Khan MD Status: REG ER - ER Visit Summary Date of Service: 04/17/18 Chief Complaint: [Numbness and weakness of the left arm and leg.] History of Present Illness: The patient is a 52 M [to the emergency department with symptoms that started at 9:55 AM today. Patient states that he was standing talking to his and granddaughter when he developed numbness in his left leg and did not feel right. Patient states that he had to sit down because he thought he might fall over. Patient also noticed that his left arm would not work right. Patient states that his symptoms lasted about 10 minutes and then resolved. Patient states that his left hand felt cold. He did have a little bit of a headache. Headaches currently resolved. He is not had any falls or head injuries. Patient is never had symptoms like this before. He denies any chest pain or shortness of breath.] Physical Examination: [HEENT-PERRLA, EOMI. Cranial nerves II through XII grossly intact. TMs clear. Mucous membranes moist. No adenopathy. Cardiovascular-regular rate and rhythm without murmur or ectopy Lungs-clear to auscultation, chest wall stable without crepitus or subcu emphysema Abdomen-normoactive bowel sounds, soft, nontender, no rebound or rigidity, no peritoneal signs. Neuro hivo-njdjms-toun and heel hudson testing within normal limits, negative Romberg, negative pronator drift, fundi benign. NIH stroke scale was 0 Extremities-intact 4, normal range of motion, normal pulses, atraumatic] Test Results: EKG obtained on arrival shows sinus rhythm with a ventricular rate of [address] changes noted. When compared with prior EKG no new changes noted. CBC with differential obtained showed a white count 7.7, hemoglobin 13.8, hematocrit 41, placed 215. Chemistries unremarkable. Glucose was elevated 295. INR was 0.9. Troponin was less than 0.015. CT scan of the brain without contrast showed nothing acute. CTA of the brain was unremarkable. CTA of the cervical/neck showed a 50% stenosis of the mid left common carotid artery with moderate plaque in bilateral carotid bulbs. [] Emergency Department Course and Treatment: [] Treatment Plan: [Admit for further workup and evaluation of suspected TIA] Disposition: [Admit] Impression: [TIA] This note was generated with [employer] dictation software. It may contain incorrect words, spelling, and punctuation that were not noted in review of the chart prior to signing ED Disposition - Plan for ED Patient: Chief Complaint: Neuro S/Sx Referrals: Radha Khan MD [Primary Care Provider] - What to do if you have Problems For any increased pain, shortness of breath, bleeding, nausea or vomiting, chest pain, or any unexpected problems, contact your Primary Care Provider. Call [facility] ([phone]) or report to the closest Emergency Room. Call 911 if necessary. 04/17/18 1278 <Electronically signed by Luli Alex DO> Date Luli Alex DO Cosigner Signature (If Indicated): Date CC: Radha Khan MD CBC W/DIFF, AUTOMATED Collected: 04/17/2018 Status: F Source: MARCELINO 11:05 AM [facility] REPOSITORY TYPE CODE TESTS RESULT OUT OF RANGE REFERENCE UNITS LAB L100.1000 4.4-11.0 K/mm3 Normal WBC 7.7 LAB L100.1200 4.6-6.2 M/mm3 Normal RBC 5.26 LAB L100.1300 13.0-16.5 g/dl Normal HGB 13.8 LAB L100.1400 40-54 % Normal HCT 41.1 LAB L100.1500 80-94 fL Low MCV 78.1 LAB L100.1600 27.0-32.0 pg Low MCH 26.2 LAB L100.1700 32-36 g/gl Normal MCHC 33.6 LAB L100.1810 11.6-14.6 % High RDW CV 15.6 LAB L100.1820 35.1-43.9 fl High RDW SD 44.1 LAB L100.1900 150-450 K/mm3 Normal PLT 215 LAB L100.2000 6.2-12.0 fl Normal MPV 10.2 LAB L100.2100 47-70 % Normal NEUT% 60.2 LAB L100.2200 19-41 % Normal LY% 27.1 LAB L100.2300 0-10 % Normal MONO% 9.7 LAB L100.2400 0-5 % Normal EO% 2.1 LAB L100.2500 0-1 % Normal BASO% 0.5 LAB L100.2550 0.0-0.9 % Normal IM GRAN % 0.400 Result Comment: IG% - Immature Granulocytes (promyelocytes, myelocytes and metamyelocytes) > 1% indicates that a LEFT SHIFT is Present. LAB L100.2620 2.0-7.7 X10 3/uL Normal Absolute Neut 4.7 LAB L100.2720 0.83-4.51 X10 3/ul Normal Absolute Lymph 2.09 Performed By: #### L100.0100 #### [facility] [address] [place], [address] BASIC METABOLIC Collected: 04/17/2018 Status: F Source: MARCELINO PROFILE ([facility]) 11:05 AM [facility] REPOSITORY TYPE CODE TESTS RESULT OUT OF RANGE REFERENCE UNITS LAB L501.0100 74-106 mg/dL High GLU 295 Result Comment: Glucose result greater than or equal to 200 mg/dL suggests DIABETES MELLITUS per A.D.A. criteria. Please note revised GLUCOSE reference range effective 2017. LAB L501.1000 7-18 mg/dL High BUN 22 LAB L501.1100 0.70-1.30 mg/dL Normal CREAT,SERUM 0.97 Result Comment: The validity of the calculated GFR AND GFRAA in patients over 70 years has not been determined. Clinical correlation is essential. LAB L501.1110 >60 mL/min Normal EST GFR 86 Result Comment: Non- GFR Calc LAB L501.1115 >60 mL/min Normal EST GFR - AA 104 Result Comment: GFR Calc LAB L501.1255 ml/min Normal Estimated CRCL 84.23 LAB L501.1300 10-20 RATIO High BUN/CRE 22.7 LAB L501.2200 8.5-10 mg/dL Normal .1 CA 8.8 LAB L501.5300 136-14 mmol/L Low 5 NA 133 LAB L501.5600 3.5-5. mmol/L Normal 1 K 3.8 LAB L501.5900 98-107 mmol/L Normal CL 98 LAB L501.6100 21.0-3 mmol/L Normal 2.0 CO2 25.0 LAB L501.6200 5-15 Normal GAP 10 Performed By: #### L500.2500, L501.4010 #### [facility] [address] [place], [address] TROPONIN-I Collected: 04/17/2018 Status: F Source: MARCELINO 11:05 AM [facility] REPOSITORY TYPE CODE TESTS RESULT OUT OF RANGE REFERENCE UNITS LAB L501.4010 <0.045 ng/mL Normal < 0.015 TROPONIN-I Result Comment: TROPONIN-I EXPECTED VALUES <0.045 Negative 0.045 - 0.590 Consistent with Cardiac Damage > OR = 0.600 Critical Value Not every elevated troponin is indicative of SD. These values should be used with clinical judgement in examining the patient's clinical picture for diagnosis. To establish a diagnosis of SD versus myocardial injury, there must be a demonstrated rise and/or fall in the troponin values, in addition to ischemic symptoms, EKG changes, new regional wall motion abnormality, and/or angiographical evidence. PLEASE NOTE: REFERENCE RANGES EDITED 17 Performed By: #### L500.2500, L501.4010 #### [facility] [address] [place], [address] PROTHROMBIN TIME W/INR Collected: 04/17/2018 Status: F Source: SLIGO 11:05 AM [facility] REPOSITORY TYPE CODE TESTS RESULT OUT OF RANGE REFERENCE UNITS LAB L300.4150 11.7-14.9 SECONDS Normal PROTIME 12.5 LAB L300.4200 Normal INR 0.9 Performed By: #### L300.3900, L300.4310 #### [facility] [address] [place], [address] PARTIAL THROMBOPLAST Collected: 04/17/2018 Status: F Source: [place] TIME 11:05 AM [facility] REPOSITORY TYPE CODE TESTS RESULT OUT OF RANGE REFERENCE UNITS LAB L300.4310 24.1-36.2 Seconds Normal PTT 25.9 Performed By: #### L300.3900, L300.4310 #### [facility] [address] [place], [address] PHOSPHORUS Collected: 04/17/2018 Status: F Source: [place] 11:05 AM [facility] REPOSITORY TYPE CODE TESTS RESULT OUT OF RANGE REFERENCE UNITS LAB L501.2300 2.5-4.9 mg/dL Normal PHOS 4.1 Performed By: #### L501.2300 #### [facility] [address] [place], [address] HEMOGLOBIN A1C Collected: 04/17/2018 Status: F Source: [place] 11:05 AM [facility] REPOSITORY TYPE CODE TESTS RESULT OUT OF RANGE REFERENCE UNITS LAB L501.9985 4.2-6.3 % High HGB A1C 9.6 Performed By: #### L501.9985 #### [facility] [address] [facility] [place], [place], [address] LIVER PROFILE Collected: 04/17/2018 Status: F Source: MARCELINO 11:05 [facility] REPOSITORY TYPE CODE TESTS RESULT OUT OF RANGE REFERENCE UNITS LAB L501.1500 6.4-8.2 g/dL Normal T PROT 8.2 LAB L501.1800 3.2-5.0 g/dL Normal ALB 3.6 LAB L501.1950 2.2-4.2 g/dL High GLOB 4.6 LAB L501.4100 15-37 U/L Normal AST 18 LAB L501.4305 45-117 U/L Normal ALK P 99 LAB L501.4405 16-61 U/L Normal ALT 27 LAB L501.4600 0.20-1.00 mg/dL Normal T BILI 0.60 LAB L501.4700 0.00-0.30 mg/dL Normal D BILI 0.12 Performed By: #### L500.3400, L501.5200, L501.9520, L503.6030, L503.6550 #### [facility] [address] [place], [place], [address] MAGNESIUM Collected: 04/17/2018 Status: F Source: MARCELINO 11:05 [facility] REPOSITORY TYPE CODE TESTS RESULT OUT OF RANGE REFERENCE UNITS LAB L501.5200 1.6-2.6 mg/dL Normal MG 1.8 Performed By: #### L500.3400, L501.5200, L501.9520, L503.6030, L503.6550 #### [facility] [address] [place], [place], [address] THYROID STIM HORMONE Collected: 04/17/2018 Status: F Source: MARCELINO ([facility]) 11:05 [facility] REPOSITORY TYPE CODE TESTS RESULT OUT OF RANGE REFERENCE UNITS LAB L501.9520 0.358-3.74 uIU/mL Normal TSH 1.60 Performed By: #### L500.3400, L501.5200, L501.9520, L503.6030, L503.6550 #### [facility] [address] [place], [address] IRON+IRON BINDING Collected: 04/17/2018 Status: F Source: MARCELINO CAPACITY 11:05 AM [facility] REPOSITORY TYPE CODE TESTS RESULT OUT OF RANGE REFERENCE UNITS LAB L503.6075 250-450 ug/dL TIBC Normal 324 LAB L503.6150 65-175 ug/dL Low IRON 51 LAB L503.6250 15.0-55.0 % IRON Normal SATURATION 15.7 Performed By: #### L500.3400, L501.5200, L501.9520, L503.6030, L503.6550 #### [facility] [address] [place], [address] FERRITIN Collected: 04/17/2018 Status: F Source: [place] 11:05 AM [facility] REPOSITORY TYPE CODE TESTS RESULT OUT OF RANGE REFERENCE UNITS LAB L503.6550 26-388 ng/mL Normal FERRITIN 101 Performed By: #### L500.3400, L501.5200, L501.9520, L503.6030, L503.6550 #### [facility] [address] [place], [address] CTA NECK W/WO Observed: 04/17/2018 Status: F Source: [place] CONTRAST 10:40 AM [facility] REPOSITORY [facility] Imaging Services [address] [place] [address] CTA Neck W/WO Contrast MR#: [id number] Acct: [id number] Name: KRUNAL LEOS Rep #: [id number] : 1965 M 52 From: Jesus Goncalves MD PCP: Radha Khan MD Status: REG ER Study: CTA Neck W/WO Contrast Date of Exam: 04/17/18 Exam# [id number] Ordering Dr: Luli Alex DO STUDY: CTA NECK WITH CONTRAST REASON FOR EXAM: Male, 52 years old. Left-sided weakness RADIATION DOSAGE (If Supplied By Facility): CTDIvol = ( 23.86 ) mGy, DLP = ( 1538.37 ) mGycm TECHNIQUE: CT angiography with multi-detector data acquisition was performed from the aortic arch to the skull base following intravenous administration of 100cc ml of Isovue 370 contrast. MIP images were reconstructed from the axial data set. Post-processing of the angiographic images was performed, with multiplanar reformation and 3D reconstruction. Individualized dose optimization techniques were used for this CT. COMPARISON: None. FINDINGS: AORTIC ARCH: Normal visualized aortic arch. Normal origins of the brachiocephalic, left common carotid, and left subclavian arteries. RIGHT CAROTID ARTERIES: Mild calcified atherosclerotic plaque along the right common carotid artery but no significant stenosis noted. There is moderate atherosclerotic plaque formation with moderate narrowing of the right carotid bulb. Normal origin of the right internal carotid (ICA) artery without a hemodynamically significant stenosis. Normal visualized cervical portion of the right internal carotid artery. Normal origin of the right external carotid artery (ECA). LEFT CAROTID ARTERIES: Peripheral calcifications noted along the left common carotid artery there is 50% stenosis in its midportion which last for approximately 1 cm. There is moderate atherosclerotic plaque formation with moderate narrowing of the carotid bulb. Normal origin of the left internal carotid (ICA) artery without a hemodynamically significant stenosis. Normal visualized cervical portion of the left internal carotid artery. Normal origin of the left external carotid artery (ECA). 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 Absent left vertebral artery Electronically Signed: Issa Goncalves MD at 12:20 EST , Service support , STUDY: CTA OF THE BRAIN REASON FOR EXAM: Male, 52 years old. Left-sided weakness RADIATION DOSAGE (If Supplied By Facility): CTDIvol = ( 23.86 ) mGy, DLP = ( 1538.37 ) mGycm TECHNIQUE: CT angiography was performed with a multi-detector CT scanner. Data acquisition was obtained from the skull base through the vertex following intravenous administration of 100 ml of of Isovue- 370. MIP images were reconstructed from the axial data set. Post-processing of the angiographic images was performed, with multiplanar reformation and 3D reconstruction. Individualized dose optimization techniques were used for this CT. COMPARISON: None. FINDINGS: Normal bilateral petrous carotid arteries. Normal right cavernous carotid artery with a normal supraclinoid bifurcation. Normal left cavernous carotid artery with a normal supraclinoid bifurcation. Normal right A1 segments of the anterior cerebral artery. Normal left A1 segments of the anterior cerebral artery. Normal intact anterior communicating artery (ACOM). Normal bilateral A2 segments of the anterior cerebral arteries. Normal right M1 and M2 segments of the middle cerebral arteries, with a normal M1 bifurcation. Normal left M1 and M2 segments of the middle cerebral arteries, with a normal M1 bifurcation. Normal right posterior communicating artery (PCOM). Normal left posterior communicating artery (PCOM). Normal bilateral vertebral arteries. Normal basilar artery with a normal basilar bifurcation. The visualized bilateral superior cerebellar (SCA) arteries are normal. Normal bilateral P1, P2 and visualized P3 segments of the posterior cerebral arteries. There is no demonstrated aneurysm of the upper [place]. There is no demonstrated abnormality of the visualized brain. CT/CTA Neck W/WO Contrast IMPRESSION: Normal upper [place] without a demonstrated aneurysm or hemodynamically significant stenosis. Electronically Signed: Issa Goncalves MD at 12:21 EST , Service support , CC: Radha Khan MD; Luli Alex DO Paraprofessional Interpreter: Signed CHEST 1 VIEW Observed: 04/17/2018 Status: F Source: MARCELINO 10:40 AM [facility] REPOSITORY [facility] Imaging Services [facility] [place] [address] [place] [address] Chest 1 View MR#: [id number] Acct: [id number] Name: KRUNAL LEOS Rep #: [id number] : 1965 M 52 From: Roman Pineda MD PCP: Radha Khan MD Status: REG ER Study: Chest 1 View Date of Exam: 04/17/18 Exam# [id number] Ordering Dr: Luli Alex DO STUDY: X-RAY CHEST REASON FOR EXAM: Male, 52 years old. Weakness. TECHNIQUE: Single frontal view of the chest. COMPARISON: November 11, 2015 FINDINGS: There is stable mild hyperexpansion. There is no demonstrated pleural abnormality. There is cardiomegaly unchanged. Normal mediastinum and darrel. Normal visualized pulmonary arteries. Normal visualized aortic arch and descending thoracic aorta. Normal visualized thoracic spine. Normal visualized ribs, clavicles, and shoulders. There is no demonstrated abnormality of the visualized soft tissue structures of the upper abdomen. RAD/Chest 1 View IMPRESSION: Stable cardiomegaly with hyperexpansion. No acute finding. Electronically Signed: Roman Pineda MD at 12:55 EST , Service support , CC: Radha Khan MD; Luli Alex DO Paraprofessional Interpreter: Signed CTA HEAD W/WO Observed: 04/17/2018 Status: F Source: MARCELINO CONTRAST 10:40 AM [facility] REPOSITORY [facility] Imaging Services [address] [place] [address] CTA Head W/WO Contrast MR#: [id number] Acct: [id number] Name: KRUNAL LEOS Rep #: [id number] : 1965 M 52 From: Jesus Goncalves MD PCP: Radha Khan MD Status: REG ER Study: CTA Head W/WO Contrast Date of Exam: 04/17/18 Exam# [id number] Ordering Dr: Luli Alex DO STUDY: CTA NECK WITH CONTRAST REASON FOR EXAM: Male, 52 years old. Left-sided weakness RADIATION DOSAGE (If Supplied By Facility): CTDIvol = ( 23.86 ) mGy, DLP = ( 1538.37 ) mGycm TECHNIQUE: CT angiography with multi-detector data acquisition was performed from the aortic arch to the skull base following intravenous administration of 100cc ml of Isovue 370 contrast. MIP images were reconstructed from the axial data set. Post-processing of the angiographic images was performed, with multiplanar reformation and 3D reconstruction. Individualized dose optimization techniques were used for this CT. COMPARISON: None. FINDINGS: AORTIC ARCH: Normal visualized aortic arch. Normal origins of the brachiocephalic, left common carotid, and left subclavian arteries. RIGHT CAROTID ARTERIES: Mild calcified atherosclerotic plaque along the right common carotid artery but no significant stenosis noted. There is moderate atherosclerotic plaque formation with moderate narrowing of the right carotid bulb. Normal origin of the right internal carotid (ICA) artery without a hemodynamically significant stenosis. Normal visualized cervical portion of the right internal carotid artery. Normal origin of the right external carotid artery (ECA). LEFT CAROTID ARTERIES: Peripheral calcifications noted along the left common carotid artery there is 50% stenosis in its midportion which last for approximately 1 cm. There is moderate atherosclerotic plaque formation with moderate narrowing of the carotid bulb. Normal origin of the left internal carotid (ICA) artery without a hemodynamically significant stenosis. Normal visualized cervical portion of the left internal carotid artery. Normal origin of the left external carotid artery (ECA). 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 Absent left vertebral artery Electronically Signed: Issa Goncalves MD at 12:20 EST , Service support , STUDY: CTA OF THE BRAIN REASON FOR EXAM: Male, 52 years old. Left-sided weakness RADIATION DOSAGE (If Supplied By Facility): CTDIvol = ( 23.86 ) mGy, DLP = ( 1538.37 ) mGycm TECHNIQUE: CT angiography was performed with a multi-detector CT scanner. Data acquisition was obtained from the skull base through the vertex following intravenous administration of 100 ml of of Isovue- 370. MIP images were reconstructed from the axial data set. Post-processing of the angiographic images was performed, with multiplanar reformation and 3D reconstruction. Individualized dose optimization techniques were used for this CT. COMPARISON: None. FINDINGS: Normal bilateral petrous carotid arteries. Normal right cavernous carotid artery with a normal supraclinoid bifurcation. Normal left cavernous carotid artery with a normal supraclinoid bifurcation. Normal right A1 segments of the anterior cerebral artery. Normal left A1 segments of the anterior cerebral artery. Normal intact anterior communicating artery (ACOM). Normal bilateral A2 segments of the anterior cerebral arteries. Normal right M1 and M2 segments of the middle cerebral arteries, with a normal M1 bifurcation. Normal left M1 and M2 segments of the middle cerebral arteries, with a normal M1 bifurcation. Normal right posterior communicating artery (PCOM). Normal left posterior communicating artery (PCOM). Normal bilateral vertebral arteries. Normal basilar artery with a normal basilar bifurcation. The visualized bilateral superior cerebellar (SCA) arteries are normal. Normal bilateral P1, P2 and visualized P3 segments of the posterior cerebral arteries. There is no demonstrated aneurysm of the upper [place]. There is no demonstrated abnormality of the visualized brain. CT/CTA Head W/WO Contrast IMPRESSION: Normal upper [place] without a demonstrated aneurysm or hemodynamically significant stenosis. Electronically Signed: Issa Goncalves MD at 12:21 EST , Service support , CC: Radha Khan MD; Luli Alex DO Paraprofessional Interpreter: Signed BEDSIDE GLUCOSE Collected: 04/17/2018 Status: F Source: M[place]EL[place] 10:39 AM [facility] REPOSITORY TYPE CODE TESTS RESULT OUT OF REFERENCE UNITS RANGE LAB L501.080 70-110 mg/dL High BEDSIDE GLU 331 Result Comment: MANAGEMENT OF PATIENT CARE PER NURSING PROTOCOL Performed By: #### L501.080 #### [facility] Point of Care [address] [place] [address] STERNUM MIN 2 VIEWS Observed: 04/07/2018 Status: F Source: MARCELINO 4:49 PM [facility] REPOSITORY [facility] Imaging Services [address] [place] [address] Sternum min 2 Views MR#: [id number] Acct: [id number] Name: KRUNAL LEOS Rep #: [id number] : 1965 M 52 From: Nely Galvin MD PCP: Radha Khan MD Status: REG CLI Study: Sternum min 2 Views Date of Exam: 04/07/18 Exam# [id number] Ordering Dr: Radha Khan MD STUDY: X-RAY STERNUM REASON FOR EXAM: Male, 52 years old. Palpable abnormality on the sternum TECHNIQUE: Three view(s) of the sternum were obtained. COMPARISON: Chest radiographs dated November 11, 2015; chest CTA dated September 09, 2015 FINDINGS: Normal bilateral sternoclavicular articulations. Normal manubrium. Normal sternomanubrial joint. Normal sternal body and xiphoid process. There is no demonstrated fracture of the sternum. Normal visualized anterior ribs. No focal abnormalities are seen in the visualized lungs. The lungs are under aerated. The soft tissue structures are unremarkable. RAD/Sternum min 2 Views IMPRESSION: No abnormalities are seen in the sternum or manubrium on radiographs. If further evaluation is needed clinically, a CT of the chest can be obtained. Electronically Signed: Nely Galvin MD at 16:55 EST Tel Direct: [phone], Service support , CC: Radha Khan MD Paraprofessional Interpreter: Signed ECHO, COMPLETE W/ Observed: 01/29/2018 Status: F Source: [place] CONTRAST 6:48 AM [facility] REPOSITORY [facility] Cardiovascular Services [address] [place] [address] Echo Complete W/ Contrast 01/28/18 1556 MR#: [id number] Acct: [id number] Name: KRUNAL LEOS Rep #: [id number] : 1965 52 From: Sumanth Hanna MD Attending Dr: Sumanth Hanna MD Status: REG CLI Ordering Dr: Sumanth Hanna MD Date: 01/28/18 Location: [facility] Sex: M C Admitted: Reason For Study: HTN Procedure This was a 2D Doppler, Color Flow transthoracic echocardiogram. Contrast injection was performed. The study was technically difficult. Exam performed in department. Left Ventricle Normal LV size. Left ventricular systolic function is normal. The estimated ejection fraction is 60 %. Stage 1 diastolic dysfunction. No regional wall motion abnormalities noted. Right Ventricle Normal RV size. Normal systolic function. Atria Normal left atrium. Normal right atrium. Mitral Valve Normal mitral valve. Tricuspid Valve Normal tricuspid valve. Mild (1+) tricuspid valve insufficiency. Pulmonary artery systolic pressure is 38 mmHg. Aortic Valve Normal aortic valve. Pulmonic Valve Normal pulmonic valve. Great Vessels Normal aortic root. The pulmonary artery is normal size. Normal inferior vena cava. Pericardium/Pleural No pericardial effusion. Medication 22 gauge I.V. with prn adaptor inserted into right arm. Diluted definity 4ml given slow IV push to enhance endocardial definition. MMode/2D Measurements AND Calculations LVIDd: 5.3 cm IVSd: 1.1 cm Ao root diam: 3.5 cm LVIDs: 3.9 cm LVPWd: 1.2 cm RVDd: 3.3 cm FS: 26.6 % LAV(MOD-bp): 79.6 ml LVAd ap4: 42.2 cm2 EDV(MOD-sp2): 106.5 ml LAV(MOD-bp) Indexed: 33.8 ml/m2 EDV(MOD-sp4): 151.5 ml EF(MOD-sp2): 64.6 % LAV(MOD-sp2): 90.1 ml EDV(sp4-el): 159.0 ml LAV(MOD-sp4): 63.2 ml LVAs ap4: 28.1 cm2 ESV(MOD-sp4): 75.5 ml ESV(sp4-el): 79.3 ml EF(MOD-sp4): 50.2 % EF(sp4-el): 50.1 % SV(MOD-sp4): 76.0 ml SV(MOD-sp2): 68.8 ml SV(sp4-el): 79.7 ml LA A4 area: 21.2 cm2 LA dimension(2D): 5.0 cm RA A4 area: 13.6 cm2 Time Measurements MV dec time: 0.18 sec Doppler Measurements AND Calculations MV E max chin: 69.3 cm/sec Lat Peak E' Chin: 7.3 cm/sec Med Peak E' Chin: 4.5 cm/sec MV A max chin: 109.5 cm/sec E/E' lat: 9.5 E/E' med: 15.6 MV E/A: 0.63 Ao V2 max: 158.3 cm/sec LV V1 max: 90.8 cm/sec PA V2 max: 108.6 cm/sec Ao max P.0 mmHg LV V1 max P.3 mmHg TR max chin: 287.7 cm/sec TR max P.1 mmHg Interpretation Summary Normal LV size. Left ventricular systolic function is normal. The estimated ejection fraction is 60 %. Stage 1 diastolic dysfunction. Pulmonary artery systolic pressure is 38 mmHg. Contrast injection was performed. Ordering Physician: Sumanth Hanna Referring Physician: RADHA KHAN Performed By: Daniela Cisneros, DIANA, RVT 01/29/18 0648 Date Sumanth Hanna MD CC: Radha Khan MD; Sumanth Hanna MD Date Dictated: 01/28/18 1556 Date Transcribed: 01/29/18 0648 Paraprofessional Interpreter: Signed CARDIOLOGY VISIT Observed: 01/08/2018 Status: F Source: MARCELINO REPORT 4:44 PM [facility] REPOSITORY [facility] [address] [place] [address] OFFICE VISIT Date of Service: 01/08/18 MR#: [id number] Acct: [id number] Name: KRUNAL LEOS Rep #: [id number] : 1965 Provider: Sumanth Hanna MD Age/Sex: 52/M Location: [facility] [place] Status: Signed HPI HPI Chief Complaint: Initial visit Details: KRUNAL LEOS, is a 52 M who presents to the office today for an initial visit. He is a gentleman with no prior obstructive coronary disease but a history of hypertension who returns for follow-up visit. As you remember he underwent a cardiac catheterization many years ago which did not demonstrate any significant obstructive coronary disease. He says that he has had some shortness of breath with exertion but not much at rest. He has been compliant with his medications. He denies any neck arm or jaw discomfort suggest angina and has been compliant with his medications. His physical exam today demonstrates clear lung ogldberg regular rate and rhythm and no pedal edema. Intake Vital Signs01/08/18 Height 5 ft 8 in 01/08/18 Weight: 286 lb 01/08/18 Body Mass Index (BMI) 43.4 01/08/18 Blood Pressure 138/62 H 01/08/18 Respiratory Rate 18 01/08/18 Pulse Rate 80 Intake Visit Reasons: Re-establish with [employer] (?) Allergies metoclopramide HCl [From Reglan] Allergy (Verified 01/08/18 16:08) Anaphylaxis Medications Levothyroxine [Synthroid] 125 mcg PO DAILY 05/03/15 [History Confirmed 01/08/18] Pantoprazole Sodium [Protonix] 40 mg PO DAILY 05/03/15 [History Confirmed 01/08/18] Tamsulosin HCl [Flomax] 0.4 mg PO DAILY 09/08/15 [History Confirmed 01/08/18] atenolol 100 mg tablet 100 mg PO DAILY #90 tab 01/08/18 [Rx Confirmed 01/08/18] buspirone 5 mg tablet 10 mg PO TID PRN tab 01/08/18 [History Confirmed 01/08/18] duloxetine 30 mg capsule,delayed release 60 mg PO DAILY cap 01/08/18 [History Confirmed 01/08/18] hydrochlorothiazide 25 mg tablet 25 mg PO DAILY #90 tab 01/08/18 [Rx Confirmed 01/08/18] lisinopril 40 mg tablet 40 mg PO DAILY #90 tab 01/08/18 [Rx Confirmed 01/08/18] sitagliptin 100 mg tablet 100 mg PO DAILY 01/08/18 [History Confirmed 01/08/18] PFSH Family History Brother Heart disease Social History Smoking Status: Never smoker ROS Const Const: Positive for fatigue; negative for weakness, difficulty sleeping, frequent falls, excessive sweating or headache(s) Eyes Eyes: Positive for blurry vision; negative for loss of peripheral vision, transient loss of vision, tunnel vision or double vision ENT ENT: Negative for headache(s), dizziness, Nosebleed/epistaxis or balance problems Cardio Chest Pain: No Palpitations: No Edema: None Muscle aches with walking: None Resp Respiratory: Positive for SOB with activity; negative for SOB at rest, SOB orthopnea\SOB lying down, paroxysmal nocturnal dyspnea or Cough GI GI: Negative nausea, heartburn, black,tarry stools or vomiting : Negative for hematuria Musc Musc: Negative for balance problems, muscle aches/ myalgia, muscle weakness or joint pain Skin Skin: Negative non-healing lesions, unusual bruising or rash Neuro Neuro: Positive for blurry vision, lightheadedness (New onset of dizziness when standing or sitting) and near syncope; negative for weakness, frequent falls, headache(s), double vision, dizziness, orthostatic symptoms, syncope or lack of coordination José Luis Hematologic/Lymphatic: Negative for easy bruising or easy bleeding Endo Endo: Positive for fatigue; negative for excessive sweating or increased thirst/drinking Psych Psych: Negative for anxiety or depression Allergy Allergy/Immunology: Negative for hives, Negative for rash Cardiology Exam Const Appearance: cooperative, healthy appearing, well developed, well groomed and no acute distress Nutritional Appearance: well nourished and average body habitus Orientation: alert, awake and oriented x3 Head Head: normal to inspection, normocephalic and atraumatic Ears: hearing grossly normal bilaterally and external ears normal Nose: external nose normal, nasal mucous membranes and turbinates normal, nares normal, septum normal, no nasal discharge Face and Sinus: face symmetric Mouth: oral mucosae normal, tongue normal, oropharynx normal and moist mucous membranes Teeth and gingiva: dentition normal Throat: posterior oropharynx normal, tonsils normal and uvula midline Eyes General: appearance normal, both eyes and all related structures Eyelids: eyelids normal Conjunctivae: conjunctivae normal Pupils: PERRL, normal by confrontation and accommodation normal EOM: EOM intact bilaterally Neck Neck: normal visual inspection, trachea midline and no JVD JVD: +5 Carotids: normal carotid upstroke and bounding pulses Chest Chest inspection: normal inspection of the chest, symmetric chest movement and normal respiratory effort Auscultation: Bilateral: Clear to Auscultation Cardio Palpation: normal PMI Rate: regular rate Rhythm: regular rhythm Heart sounds: S1 normal, S2 normal and normal, physiologic split S2; negative rub, gallop or murmur GI GI: normal to inspection, soft, no hepatosplenomegaly and bowel sounds present Neuro General: alert, awake, oriented x3, no focal sensory deficit, gait normal and moves all extremities Skin Skin: no rashes or lesions noted Extremities Pulses: Normal: Right Femoral Pulse, Left Femoral Pulse, Right Dorsalis Pedis Pulse, Left Dorsalis Pedis Pulse, Right Posterior Tibial Pulse, Left Posterior Tibial Pulse, Right Radial Pulse, Left Radial Pulse Lower Extremity Edema: None: Bilateral Musculoskel Musculoskeletal: No joint tenderness Psych Psychological: normal affect Assessment AND Plan 1. Essential (primary) hypertension I10 Plan He does have a history of hypertension. I would recommend that we change his blood pressure medicines around as follows: Atenolol 100 mg a day, lisinopril increased to 40 mg a day, discontinue Lasix, add hydrochlorothiazide 25 mg a day. He should continue to monitor his blood pressure and recorded. I like a chemistry and lipid profile in approximately 2-3 weeks. An echocardiogram should also be performed to assess his left ventricular function. At this juncture I would also like us to discontinue his aspirin. Orders Orders: 2. Hyperlipidemia E78.5 Plan He does have a history of hyperlipidemia and my recommendation would be to continue him on his current dose of diabetes medications and obtain a lipid profile. Depending on the findings further recommendations will be made. Orders Orders: Plan Detail Other Orders Orders: Other Medications New: Discontinued: Follow Up 6 Months (patternator) Coding Level of Care Code Off vis,new,level 4 Diagnoses Essential (primary) hypertension I10 Hyperlipidemia E78.5 Coding Level of Care Code Off vis,new,level 4 Diagnoses Essential (primary) hypertension I10 Hyperlipidemia E78.5 01/08/18 1644 <Electronically signed by Sumanth Hanna MD> Date Sumanth Hanna MD Cosigner Signature: Date (if applicable) CC: Radha Khan MD INITAL EVALUATION (1) Observed: 11/21/2017 Status: F Source: MARCELINO Caballero PT 10:10 AM [facility] REPOSITORY [facility] [address] [place] [address]. [address] [place] [address] Fax REHABILITATION SERVICES INITIAL EVALUATION MR#: [id number] Acct: [id number] Name: KRUNAL LEOS Rep #: [id number] : 1965 52 From: Cristino Larson PT, Cert. MDT, OCS Referring Dr.: Radha Khan MD Status: REG RCR Insurance: HEALTH PLAN OF [facility] SELF PAY INSURANCE Patient's Visit Information KRUNAL LEOS is a 52 year old M referred to Physical Therapy by Radha Khan MD with a diagnosis of CERVICAL STRAIN. Date of Evaluation: 11/20/17 Physical Therapist: Cristino Larson PT, - Visit Plan Frequency: 2x /Week Duration: 6 Weeks Plan: manual therapy MOBS cervical traction /STM,US,CP PROGRESS WITH ROM/POSTURAL EX'S - Subjective Subjective: This 52 y/o male presents to physical therapy for cervical strain. Patient has had symptoms in cervical spine for a couple of months.Patient has had symptoms tightness in left UT cervical spine. Symptoms worse turning to the left ,popping either direction,sitting ,flexing neck. Symptoms better with iboprofin. Seen Dr Peace recommended PT. Denies parathesia/tingling. Denies AREVALO/tinnutis/dizzinnes. No trauma or PT tx.Symptoms are intermmitant. Patient has seen chiroprator. Patient pain affects QOL and ADL'S/job demands. VOCATION: [employer] video. SOCAIL: - Pain Left Neck Pain Intensity (Out of 10): 4 Pain Intensity Range: 8, 9 - Objective POSTURE: mild foward posture,protruded head,thoracic kyphosis. NEURO: denies parathesia/tingling ,C-5-6-7 2/3. PALAPTION: tender UT/levator scapular. CEVICAL ROM: flexion mod loss,extension mod loss,lateral flexion /rotation mod /severe loss ,left with pain left,protrusion mod,retraction mod loss. MMT: BUE grossly 4/5 - Special Tests C/S Radiculapathy - Left Upper limb tension test: Negative C/S Radiculapathy - Right Upper limb tension test: Negative C/S Radiculapathy - Left Spurlings: Negative C/S Radiculapathy - Right Spurlings: Positive Sharp Levi: Negative Vertebral Artery Test: Negative Alar Ligament Test: Negative Cervical Sitting: Protrusion - Mechanical Response: No effect Cervical Sitting: Protrusion - Symptoms During Testing: No effect Cervical Sitting: Protrusion - Symptoms After Testing: No effect Cervical Sitting: Retraction - Mechanical Response: No effect Cervical Sitting: Retraction - Symptoms During Testing: Increases Cervical Sitting: Retraction - Symptoms After Testing: No worse - Goals Goal 1:: Independant with HEP. Goal Time Frame: 4-6 Weeks Goal 2:: Patient to be Independant with HEP. Goal Time Frame: 4-6 Weeks Goal 3:: Patient to decrease left cervical pain by 60% or greater to improve function driving and ADL'S Goal Time Frame: 4-6 Weeks Goal 4:: Patient to improve cervical ROM for function of recovery for ADL;S Goal Time Frame: 4-6 Weeks Goal 5:: Patient improve ablity to improve ADL'S and job demnads with min limitations Goal Time Frame: 4-6 Weeks - Rehabilitation Potential Physical Therapy Diagnosis: Patient has left lateral stenosis affects pain left side with ROM,function ,ADL'S and job demands thus benifit from PT Rehabilitation Potential: Good - Anticipated Interventions Patient/Client Instruction: Educate patient on: Condition, Plan of Care For the Purpose of:: To decrease pain, To increase ROM, To improve muscle performance and motor function, To improve ability to perform ADL's, To increase tolerance to activity/condition/position, To improve ability of physical actions for home/community/work/leisure, To improve health of tissue, To decrease soft tissue restriction, To increase flexibility/ROM, To improve ability to perform tasks related to life management Therapeutic Exercise to Include: Strength training, Postural training, Flexibilty training, Active ROM, Georgette Exercises For the Purpose of:: To decrease pain, To increase ROM, To improve muscle performance and motor function, To improve ability to perform ADL's, To increase tolerance to activity/condition/position, To improve ability of physical actions for home/community/work/leisure, To improve health of tissue, To decrease soft tissue restriction, To increase flexibility/ROM, To improve ability to perform tasks related to life management IF ES: Yes Cryotherapy (ice pack, ice massage): Yes Thermo therapy (hot pack): Yes Ultrasound (thermal/non thermal): Yes Intermittent cervical traction: Yes For the Purpose of:: To decrease pain, To increase ROM, To improve nutrient delivery to tissue, To increase oxygenation perfusion, To improve health of tissue, To decrease soft tissue restriction Thank you for the opportunity to evaluate your patient. For Medicare and Medicare HMO plans, please review the plan of care and approve it. It will need to be FAXED BACK to us at [phone] for Medicare purposes. Please let me know if there are questions or concerns regarding this plan of care. Physician Signature: Date: <Electronically signed by Cristino Larson PT, Cert. NAA, OCS> 11/21/17 1010 CC: Radha Khan MD DAVID Signed For Medicare only, by signing this I certify the plan of care. Physicians Signature Date CBC W/DIFF, AUTOMATED Collected: 09/24/2017 Status: F Source: MARCELINO 3:09 PM [facility] REPOSITORY Order Comment: A1C DONE IN OFFICE TYPE CODE TESTS RESULT OUT OF RANGE REFERENCE UNITS LAB L100.1000 4.4-11.0 K/mm3 Normal WBC 7.8 LAB L100.1200 4.6-6.2 M/mm3 Normal RBC 4.85 LAB L100.1300 13.0-16.5 g/dl Low HGB 12.3 LAB L100.1400 40-54 % Low HCT 38.7 LAB L100.1500 80-94 fL Low MCV 79.8 LAB L100.1600 27.0-32.0 pg Low MCH 25.4 LAB L100.1700 32-36 g/gl Low MCHC 31.8 LAB L100.1810 11.6-14.6 % High RDW CV 15.2 LAB L100.1820 35.1-43.9 fl High RDW SD 44.6 LAB L100.1900 150-450 K/mm3 Normal PLT 203 LAB L100.2000 6.2-12.0 fl Normal MPV 10.3 LAB L100.2100 47-70 % Normal NEUT% 64.5 LAB L100.2200 19-41 % Normal LY% 24.6 LAB L100.2300 0-10 % Normal MONO% 8.1 LAB L100.2400 0-5 % Normal EO% 2.2 LAB L100.2500 0-1 % Normal BASO% 0.5 LAB L100.2550 0.0-0.9 % Normal IM GRAN % 0.100 Result Comment: IG% - Immature Granulocytes (promyelocytes, myelocytes and metamyelocytes) > 1% indicates that a LEFT SHIFT is Present. LAB L100.2620 2.0-7.7 X10 3/uL Normal Absolute Neut 5.0 LAB L100.2720 0.83-4.51 X10 3/ul Normal Absolute Lymph 1.91 Performed By: #### L100.0100 #### Marcelino [facility] [address] [place], [address] THYROID STIM HORMONE Collected: 09/24/2017 Status: F Source: MARCELINO (TSH) 3:09 PM [facility] REPOSITORY Order Comment: A1C DONE IN OFFICE TYPE CODE TESTS RESULT OUT OF RANGE REFERENCE UNITS LAB L501.9520 0.358-3.74 uIU/mL Normal TSH 2.73 Performed By: #### L501.9520 #### [facility] [address] [place], [address] TESTOSTERONE, SERUM TOTAL Collected: 09/24/2017 Status: F Source: MARCELINO 3:09 PM [facility] REPOSITORY Order Comment: A1C DONE IN OFFICE TYPE CODE TESTS RESULT OUT OF REFERENCE UNITS RANGE LAB L509.3000 ng/dL Testosterone Normal 123.45 Result Comment: NORMAL REFERENCE RANGES MALE AGE <50 123.06 - 813.86 ng/dL MALE AGE >50 89.98 - 780.10 ng/dL FEMALE PREMENOPAUSE AGE 21 - 60 9.01 - 47.94 ng/dL FEMALE POSTMENOPAUSE AGE 45 - 89 <7.00 - 45.62 ng/dL REFERENCE RANGE AND METHODOLOGY CHANGED 03/20/2017 Performed By: #### L509.3000 #### [facility] [place], [address] BASIC METABOLIC Collected: 05/21/2017 Status: F Source: MARCELINO PROFILE (BMP) 11:13 AM [facility] REPOSITORY Order Comment: Order Date: 05/21/17 Order Info: 0667-1 - BMP Order Info: 0788-1 - LIVER Order Info: 21458-4 - LIPID TYPE CODE TESTS RESULT OUT OF RANGE REFERENCE UNITS LAB L501.0100 74-106 mg/dL High GLU 290 Result Comment: Glucose result greater than or equal to 200 mg/dL suggests DIABETES MELLITUS per A.D.A. criteria. Please note revised GLUCOSE reference range effective 2017. LAB L501.1000 7-18 mg/dL Normal BUN 15 LAB L501.1100 0.70-1.30 mg/dL Normal CREAT,SERUM 0.83 Result Comment: The validity of the calculated GFR AND GFRAA in patients over 70 years has not been determined. Clinical correlation is essential. LAB L501.1110 >60 mL/min Normal EST GFR 103 Result Comment: Non- GFR Calc LAB L501.1115 >60 mL/min Normal EST GFR - AA 125 Result Comment: GFR Calc LAB L501.1300 10-20 RATIO Normal BUN/CRE 18.1 LAB L501.2200 8.5-10.1 mg/dL Low CA 8.4 LAB L501.5300 136-145 mmol/L Low NA 134 LAB L501.5600 3.5-5.1 mmol/L K Normal 3.9 LAB L501.5900 98-107 mmol/L CL Normal 99 LAB L501.6100 21.0-32.0 mmol/L Normal CO2 24.0 LAB L501.6200 5-15 Normal GAP 11 Performed By: #### L500.2500, L500.3400, L500.4100, L501.9985, L502.0250 #### [facility] [address] [place], [address] LIVER PROFILE Collected: 05/21/2017 Status: F Source: MARCELINO 11:13 AM [facility] REPOSITORY Order Comment: Order Date: 05/21/17 Order Info: 0667-1 - BMP Order Info: 0788-1 - LIVER Order Info: 16575-9 - LIPID TYPE CODE TESTS RESULT OUT OF RANGE REFERENCE UNITS LAB L501.1500 6.4-8.2 g/dL Normal T PROT 7.7 LAB L501.1800 3.2-5.0 g/dL Normal ALB 3.4 LAB L501.1950 2.2-4.2 g/dL High GLOB 4.3 LAB L501.4100 15-37 U/L Normal AST 17 LAB L501.4305 45-117 U/L Normal ALK P 107 LAB L501.4405 16-61 U/L Normal ALT 28 Result Comment: Please note revised ALT reference range effective 2017. LAB L501.4600 0.20-1.00 mg/dL Normal T BILI 0.60 LAB L501.4700 0.00-0.30 mg/dL Normal D BILI 0.10 Performed By: #### L500.2500, L500.3400, L500.4100, L501.9985, L502.0250 #### [facility] [address] [place], [place], [address] LIPID PROFILE Collected: 05/21/2017 Status: F Source: SLIGO 11:13 AM [facility] REPOSITORY Order Comment: Order Date: 05/21/17 Order Info: 0667-1 - BMP Order Info: 0788-1 - LIVER Order Info: 77812-3 - LIPID TYPE CODE TESTS RESULT OUT OF RANGE REFERENCE UNITS LAB L501.4900 200 mg/dL Normal CHOL 194 Result Comment: <200 mg/dL Desirable 200-240 mg/dL Borderline >240 mg/dL High Risk LAB L501.5000 mg/dL High TRIG 398 Result Comment: The drugs N-Acetylcysteine and Metamizole may falsely depress this assay. Serum Triglycerides Reference Interval Normal <150 mg/dL Borderline high 150 - 199 mg/dL High 200 - 499 mg/dL Very High > or = 500 mg/dL LAB L501.6400 mg/dL Low HDL 37 Result Comment: The drugs N-Acetylcysteine and Metamizole may falsely depress this assay. Reference Range HDL <40 mg/dL Low HDL Cholesterol HDL >or= 60 mg/dL High HDL Cholesterol LAB L501.6500 0-130 mg/dL Normal LDL 77 LAB L501.6600 5-40 mg/dL High VLDL 80 Performed By: #### L500.2500, L500.3400, L500.4100, L501.9985, L502.0250 #### [facility] [address] [place], [place], [address] HEMOGLOBIN A1C Collected: 05/21/2017 Status: F Source: SLIGO 11:13 AM [facility] REPOSITORY Order Comment: Order Date: 05/21/17 Order Info: 4548-4 - A1C TYPE CODE TESTS RESULT OUT OF RANGE REFERENCE UNITS LAB L501.9985 4.2-6.3 % High HGB A1C 10.1 Performed By: #### L500.2500, L500.3400, L500.4100, L501.9985, L502.0250 #### [facility] [address] [place], [place], [address] MICROALB:CREAT Collected: 05/21/2017 Status: F Source: MARCELINO RATIO,RANDOM UR 11:13 AM [facility] REPOSITORY Order Comment: Order Date: 05/21/17 Order Info: 0779-1 - MIACRE TYPE CODE TESTS RESULT OUT OF RANGE REFERENCE UNITS LAB L501.1200 NO RANGE EST. mg/dL Normal UR CREAT 65.00 LAB L502.0500 NO RANGE EST. mg/L Normal 413.0 MICROALBUMIN ,UR LAB L502.0600 <30 mg/g CRE mg/g CRE High 635.4 MALB:CREAT Performed By: #### L500.2500, L500.3400, L500.4100, L501.9985, L502.0250 #### [facility] [address] [place], [address] ALLERGIES ALLERGIES DATE TYPE / NAME / CODE REACTION SEVERITY SOURCE CODE 04/17/2018 Drug metoclopramide Anaphylaxis Unknown [place] Allergy/41 HCl/[id number]([facility] [id number]([facility]) Repository ENCOUNTERS ENCOUNTERS ADMIT/DISCHARGE ACCOUNT ADMITTING ENCOUNTER LOCATION SOURCE NUMBER CLASS 04/17/2018/ [id number] Sementi, Ambulatory [place] [facility] 9 4 [facility] ing:PCURoom: Repository [id number]: 1 04/17/2018 [id number] Sementi, Ambulatory BMSBuilding:B [place] 2 [facility] Repository 04/17/2018 [id number] Sementi, Ambulatory BMSBuilding:B Marcel[place] 8 [facility] Repository 04/17/2018 [id number] Sementi, Ambulatory BMSBuilding:B Marcel[place] 7 [facility] Repository 04/07/2018 [id number] Ambulatory [place] [facility] 6 [facility] ing:MTRAD Repository 01/28/2018 [id number] Ambulatory Marcel[place] 0 [facility] ing:[facility] Repository 01/28/2018 [id number] Ambulatory BMSBuilding:W [place] 1 [facility] Repository 01/08/2018/ [id number] Ambulatory BMSBuilding:B [place] 8 5 [facility] Repository 12/12/2017/ [id number] Ambulatory [place] 8 2 [facility] ing:PT Repository 09/24/2017 [id number] Ambulatory [place] 9 [facility] ing:MFPLAB Repository 05/21/2017 [id number] Ambulatory Marcelino Marcelino 5 [facility] ing:MFPLAB Repository PAYERS PAYERS ENCOUNTER GUARANTOR PAYER SUBSCRIBER SOURCE 04/17/2018 KRUNAL A Primary KRUNAL A [place] [id number] Insurance:HEALTH PLAN [facility] [address] Number: Repository [id number]: 330 [id number] [phone] () Date: [place], [place] [address]MO: 04/17/2018 Secondary NOT GIVENUNK [place] Insurance:SELF PAY [facility] Number: Effective Repository Date:2018-04-17 04/17/2018 KRUNAL A Primary KRUNAL A Marcelino [id number] Insurance:HEALTH PLAN [facility]OB: [facility] [address] Number: Repository [address]Wfs: 330 [id number] [phone] () Date: [place], [place] [address]AJ: 04/17/2018 Secondary NOT GIVENUNK Marcelino Insurance:SELF PAY [facility] Number: Effective Repository Date:2018-04-17 04/17/2018 KRUNAL A Primary KRUNAL A Marcelino [id number] Insurance:HEALTH PLAN GLASGODOB: [address] Number: Repository [id number]: 330 [id number] [phone] () Date: [place], [place] [address]SF: 04/17/2018 Secondary NOT GIVENUNK [place] Insurance:SELF PAY [facility] Number: Effective Repository Date:2018-04-17 04/17/2018 KRUNAL A Primary KRUNAL A Marcelino [id number] Insurance:HEALTH PLAN GLASGODOB: Community YASSINE OF [address] Number: Repository [id number]: 330 [id number] [phone] () Date: [place], [place] [address]AH: 04/17/2018 Secondary NOT GIVENUNK [place] Insurance:SELF PAY [facility] Number: Effective Repository Date:2018-04-17 04/07/2018 KRUNAL A Primary KRUNAL A [place] [id number] Insurance:HEALTH PLAN GLASGODOB: [address] Number: Repository [id number]: 330 [id number] [phone] () Date: [facility], [place] [address]GQ: 04/07/2018 Secondary NOT GIVENUNK [place] Insurance:SELF PAY [facility] Number: Effective Repository Date:2018-04-07 01/28/2018 KRUNAL A Primary KRUNAL A [place] [id number] Insurance:HEALTH PLAN GLASGODOB: [address] Number: Repository [id number]: 330 [id number] [phone] () Date: [place], [place] [address]KM: 01/28/2018 Secondary NOT GIVENUNK Marcelino Insurance:SELF PAY [facility] Number: Effective Repository Date:2018-01-15 01/28/2018 KRUNAL A Primary KRUNAL A [place] [id number] Insurance:HEALTH PLAN [facility]OB: [facility] [address] Number: Repository [id number]: [phone]) [id number] [phone] (HP) Date: [place], [place] [address]BO: 01/28/2018 Secondary NOT GIVENUNK [place] Insurance:SELF PAY [facility] Number: Effective Repository Date:2018-01-28 01/08/2018 KRUNAL A Primary KRUNAL A [place] [id number] Insurance:HEALTH PLAN GLASGODOB: Community YASSINE OF [address] Number: Repository [id number]: (330) [id number] [phone] () Date: [place], [place] [address]ES: 01/08/2018 Secondary NOT GIVENUNK Marcelino Insurance:SELF PAY [facility] Number: Effective Repository Date:2017-11-29 12/12/2017 KRUNAL A Primary KRUNAL A Marcelino [id number] Insurance:HEALTH PLAN GLASGODOB: Community YASSINE [id number]: Repository [phone]: ([phone] [id number] [phone] () Date: [place], [place] [address]SD: 12/12/2017 Secondary NOT GIVENUNK Marcelino Insurance:SELF PAY [facility] Number: Effective Repository Date:2017-11-14 09/24/2017 Krunal A Primary Krunal A Marcelino [id number] Insurance:HEALTH PLAN GlasgoDOB: Community Yassine [facility] [id number] [facility] Number: Repository [id number]: ([phone] [id number] () Date: [place], [place] [address]ZV: 09/24/2017 Secondary NOT GIVENUNK [place] Insurance:SELF PAY [facility] Number: Effective Repository Date:2017-09-24 05/21/2017 Krunal A Primary Krunal A Marcelino [id number] Insurance:HEALTH PLAN GlasgoDOB: [facility] [id number] [facility] Number: Repository [id number]: ([phone]) [id number] () Date: [place], [place] [address]WB: 05/21/2017 Secondary NOT GIVENUNK Marcelino Insurance:SELF PAY [facility] Number: Effective Repository Date:2017-05-21
== END 2018-04-19 10:19 | disposition home or self-care (01) ==
LOC: ED 11:19 → PCU 14:12
PROVIDERS: Admitting Provider Internal Medicine; Emergency Provider Emergency Medicine; Family Provider Family Medicine; PCP Family Medicine; Referring Provider Internal Medicine; Visit Provider Internal Medicine
DX: G45.9 Transient cerebral ischemic attack, unspecified (principal); E11.65 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 mellitus with hyperglycemia; I10 Essential (primary) hypertension; E78.5 Hyperlipidemia, unspecified; Z79.899 Other long term (current) drug therapy; E66.01 Morbid (severe) obesity due to excess calories; Z68.41 Body mass index [BMI] 40.0-44.9, adult; Z71.3 Dietary counseling and surveillance; G47.33 Obstructive sleep apnea (adult) (pediatric); F41.9 Anxiety disorder, unspecified; F32.9 Major depressive disorder, single episode, unspecified; R53.1 Weakness; R20.0 Anesthesia of skin; N40.0 Benign prostatic hyperplasia without lower urinary tract symptoms; K21.9 Gastro-esophageal reflux disease without esophagitis; Z85.89 Personal history of malignant neoplasm of other organs and systems; E03.9 Hypothyroidism, unspecified
CPT/HCPCS: 36415; 70496; 70498; 70551; 71045; 80048; 80061; 80076; 82728; 82962; 83036; 83540; 83550; 83735; 84100; 84443; 84484; 85025; 85027; 85610; 85730; 93005; 93306; 94762; 96361; 96372; 96374; 96376; 97802; 99218; 99283; J7030; Q9957; Q9967; A4216; C8929; G0378

== ENCOUNTER 2018-10-15 12:54 | Emergency (ER) | payer OTHER, SELFPAY ==
[2018-04-19 00:01] VITALS: BMI 41.4
[2018-10-15 12:55] VITALS: BP 117/71; PULSE 109; RESP 20; TEMP 36.8; O2SAT 100; BMI 41.4
[2018-10-15 13:08] VITALS: BP 140/68; PULSE 101; PULSE 102; RESP 13; RESP 15; TEMP 36.8; O2SAT 100
--- NOTE | 2018-10-15 13:15 | EKG12_ITS ---
Test Reason : SOB Blood Pressure : / mmHG Vent. Rate : 098 BPM Atrial Rate : 098 BPM P-R Int : 150 ms QRS Dur : 106 ms QT Int : 376 ms P-R-T Axes : 001 -16 108 degrees QTc Int : 480 ms Sinus rhythm with frequent Premature ventricular complexes Voltage criteria for left ventricular hypertrophy Inferior infarct (cited on or before 17-APR-2018) T wave abnormality, consider lateral ischemia Abnormal ECG Confirmed by CARO MCRAE, ANGELA ([id number]), fan mail editor RALEIGH ALFARO ([id number]) on 10/20/2018 12:24:08 PM Referred By: NANETTE Confirmed By:ANGELA ELIZONDO MD
[2018-10-15 13:45] LABS: Absolute Neutrophil Count 5.3 X10^3/uL (2.0-7.7); Basophil# 0.03 X10^3/uL; Basophil% 0.4 % (0-1); Eosinophil# 0.19 X10^3/uL; Eosinophils% 2.3 % (0-5); Hematocrit 40.1 % (40-54); Lymphocyte % 20.9 % (19-41); Mean Corp Hgb Conc 32.4 g/dL (32-36); Mean Corpuscular Hgb 25.9 pg (27.0-32.0); Mean Corpuscular Volume 79.9 fL (80-94); Mean Platelet Vol. 10.1 fl (6.2-12.0); Monocyte# 0.87 X10^3/uL; Monocyte% 10.7 % (0-10); NRBC Flagged by Analyzer 0 % (0-5); Neutrophil # 5.32 X10^3/uL (2.7-7.7); Neutrophil % 65.2 % (47-70); Platelet Count 194 K/mm3 (150-450); RBC Distribution Width CV 14.6 % (11.6-14.6); RBC Distribution Width SD 42.1 fl (35.1-43.9); Red Blood Count 5.02 M/mm3 (4.6-6.2); White Blood Count 8.2 K/mm3 (4.4-11.0)
--- NOTE | 2018-10-15 13:50 | RAD_ITS ---
STUDY: X-RAY CHEST REASON FOR EXAM: Male, 53 years old. 2 day history of dyspnea. TECHNIQUE: PA and lateral views of the chest. COMPARISON: Comparison is made with prior study dated April 17, 2018. FINDINGS: EKG electrodes are seen. Mild degree of increased markings in the lingular segment of the left upper lobe. This may represent linear atelectasis and/or early infiltrate. Follow-up is recommended. There is no demonstrated pleural abnormality. Normal size heart. Normal mediastinum and darrel. Normal visualized pulmonary arteries. There is atherosclerotic calcification of the aortic arch with tortuosity. There are diffuse degenerative changes of the visualized thoracic spine. Normal visualized ribs, clavicles, and shoulders. There is no demonstrated abnormality of the visualized soft tissue structures of the upper abdomen. RAD/Chest PA and Lateral IMPRESSION: Increased markings in the lingular segment of the left upper lobe suggestive of atelectasis and/or early infiltrate. Electronically Signed: Chicho Monsalve, at 14:22 EDT , Service support ,
[2018-10-15 13:59] LABS: Anion Gap 8 (5-15); BUN 19 mg/dL (7-18); BUN/Creat Ratio 16.2 RATIO (10-20); Calcium,Total 8.2 mg/dL (8.5-10.1); Chloride 101 mmol/L (98-107); Creatinine, Serum 1.17 mg/dL (0.70-1.30); EST Glomerular Filtration Rate 69 mL/min (>60); Est Glom Filt Rate - Afr Amer 83 mL/min (>60); Estimated Creatinine Clearance 71.34 ml/min; Glucose 263 mg/dL (74-106); Potassium 3.9 mmol/L (3.5-5.1); Sodium Level 132 mmol/L (136-145)
[2018-10-15 14:25] VITALS: BP 130/78; PULSE 89; RESP 16; TEMP 36.9; O2SAT 96
[2018-10-15 14:36] VITALS: O2SAT 98
--- NOTE | 2018-10-15 14:43 | ED.DCSUM_ITS ---
- ER Visit Summary Date of Service: 10/15/18 Chief Complaint: Shortness of breath History of Present Illness: The patient is a 53 M who states that on Saturday he had vomiting diarrhea. His had a norovirus recently. He noted fever chills and sweats. He then developed dyspnea and some green sputum production. He notes generalized myalgias and states is hard for him to walk around the room without being short of breath. Denies any history of CHF asthma or COPD. He is a non-smoker. He is a diabetic with hypertension high cholesterol. Physical Examination: Afebrile vital signs noted a slight tachycardia at 109 which is come down into the low 90s at rest. Pulse ox 100% on room air Gen: Well-nourished well-developed Head: Normocephalic atraumatic Eyes: Perrl EOMI ENT: TMs clear no rhinorrhea moist mucous membranes Neck: Supple no lymphadenopathy no JVD nontender CVS: Regular rate rhythm no murmurs normal S1-S2 Respiratory: No distress there is scant rhonchi at the bases chest nontender Abdomen: Soft nontender nondistended normal bowel sounds no masses Back: Nontender Extremity: Nontender no edema Skin: Normal color no rash Neuro: alert orientated ?3 CN II-XII intact normal strength sensation reflexes gait cerebellar Psych: Normal affect normal mood Test Results: BC is normal. BUN 19 creatinine 1.17. Troponin negative EKG sinus rate of 98 with PVCs. Chest x-ray shows a lingular infiltrate. Emergency Department Course and Treatment: His history and chest x-ray are consistent with a lingular pneumonia. Patient was started on Levaquin as well as an albuterol MDI. He ambulated here in the department was not symptomatic and his oxygen sats at 96%. Impression: 1. Pneumonia of the left upper lobe lingular segment This note was generated with [employer] dictation software. It may contain incorrect words, spelling, and punctuation that were not noted in review of the chart prior to signing ED Disposition - Plan for ED Patient: Disposition: Home or Assisted Living Instructions: PNEUMONIA (Adult) Prescriptions: Levofloxacin [Levaquin] 750 mg PO DAILY #5 tab Prescription Printed Albuterol Inhaler [Ventolin Hfa] 2 puff INHALATION Q4H PRN PRN #1 inhaler PRN Reason: Wheezing Prescription Printed Referrals: Radha Khan MD [Primary Care Provider] - 3-5 Days
[2018-10-15 15:30] VITALS: BP 139/84; PULSE 72; RESP 18; O2SAT 96
== END 2018-10-15 15:35 | disposition home or self-care (01) ==
PROVIDERS: Emergency Provider Emergency Medicine; Family Provider Family Medicine; PCP Family Medicine
DX: J18.1 Lobar pneumonia, unspecified organism (principal); E11.9 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 without complications; I10 Essential (primary) hypertension; E78.00 Pure hypercholesterolemia, unspecified; Z86.73 Personal history of transient ischemic attack (TIA), and cerebral infarction without residual deficits; Z79.4 Long term (current) use of insulin; Z79.82 Long term (current) use of aspirin; Z79.899 Other long term (current) drug therapy
CPT/HCPCS: 71046; 80048; 84484; 85025; 93005; 99284; A4216

== ENCOUNTER → 2018-10-28 | Outpatient (CLI) | payer OTHER, SELFPAY ==
[2018-10-15 12:55] VITALS: BMI 41.4
--- NOTE | 2018-10-28 13:56 | RAD_ITS ---
STUDY: X-RAY CHEST REASON FOR EXAM: Male, 53 years old. Follow-up pneumonia TECHNIQUE: Frontal and lateral views of the chest COMPARISON: 10/15/2018 FINDINGS: The previously seen airspace opacity in the lingula is decreased. However, mild residual opacity remains. The lungs are otherwise clear. There are no pleural effusions. There is no pneumothorax. The heart is normal in size. The visualized osseous structures are within normal limits. RAD/Chest PA and Lateral IMPRESSION: Resolving lingular pneumonia with mild residual remaining opacity. Continued follow-up to resolution is recommended. Electronically Signed: Odell Briseno, at 14:11 EDT Tel , Service support ,
== END | disposition home or self-care (01) ==
LOC: MTRAD 13:55
PROVIDERS: Family Provider Family Medicine; PCP Family Medicine; Referring Provider Family Medicine; Visit Provider Family Medicine
DX: J15.9 Unspecified bacterial pneumonia (principal)
CPT/HCPCS: 71046

== ENCOUNTER → 2019-07-04 | Outpatient (CLI) | payer OTHER, SELFPAY ==
[2019-06-26 12:49] VITALS: BMI 44.4
[2019-07-04 11:26] LABS: AST(SGOT) 18 U/L (15-37); Alanine Aminotransfer ALT/SGPT 26 U/L (16-61); Albumin, Serum 3.3 g/dL (3.2-5.0); Alkaline Phosphatase 105 U/L (45-117); Anion Gap 7 (5-15); BUN 18 mg/dL (7-18); BUN/Creat Ratio 19.2 RATIO (10-20); Bilirubin, Direct 0.14 mg/dL (0.00-0.30); Calcium,Total 8.5 mg/dL (8.5-10.1); Chloride 102 mmol/L (98-107); Cholesterol 139 mg/dL (200); Creatinine, Serum 0.94 mg/dL (0.70-1.30); EST Glomerular Filtration Rate 89 mL/min (>60); Est Glom Filt Rate - Afr Amer 107 mL/min (>60); Globulin 4.5 g/dL (2.2-4.2); Glucose 241 mg/dL (74-106); High Density Lipoprotein 36 mg/dL; Potassium 4.3 mmol/L (3.5-5.1); Protein, Total 7.8 g/dL (6.4-8.2); Sodium Level 135 mmol/L (136-145); Triglycerides 171 mg/dL; Very Low Density Lipoprotein 34 mg/dL (5-40)
[2019-07-04 11:31] LABS: Hemoglobin A1c 10.5 % (4.2-6.3)
== END | disposition home or self-care (01) ==
LOC: LAB 09:36
PROVIDERS: PCP Family Medicine; Referring Provider Internal Medicine Cardiovascular Disease; Visit Provider Internal Medicine Cardiovascular Disease
DX: E78.5 Hyperlipidemia, unspecified (principal); I10 Essential (primary) hypertension
CPT/HCPCS: 36415; 80048; 80061; 80076; 83036

== ENCOUNTER → 2020-01-13 | Outpatient (CLI) | payer OTHER, SELFPAY ==
[2019-06-26 12:49] VITALS: BMI 44.4
--- NOTE | 2020-01-13 12:50 | RAD_ITS ---
STUDY: X-RAY CHEST REASON FOR EXAM: Male, 54 years old. sob TECHNIQUE: PA and lateral views of the chest. COMPARISON: 10/28/2018 FINDINGS: The lungs are clear and expanded. There is no demonstrated pleural abnormality. Normal size heart. Normal mediastinum and darrel. Normal visualized pulmonary arteries. Normal visualized aortic arch and descending thoracic aorta. Normal visualized thoracic spine. Normal visualized ribs, clavicles, and shoulders. There is no demonstrated abnormality of the visualized soft tissue structures of the upper abdomen. RAD/Chest PA and Lateral IMPRESSION: Normal x-ray examination of the chest. Electronically Signed: Onur Lyons MD at 8:42 EDT Tel , Service support ,
[2020-01-13 15:14] LABS: Absolute Lymphocyte Count 1.89 X10^3/uL (0.83-4.51); Basophil# 0.06 X10^3/uL; Basophil% 0.8 % (0-1); Eosinophil# 0.18 X10^3/uL; Eosinophils% 2.3 % (0-5); Hematocrit 40.5 % (40-54); Hemoglobin 12.8 g/dL (13.0-16.5); Lymphocyte # 1.89 X10^3/ul (4.0); Lymphocyte % 24.4 % (19-41); Mean Corp Hgb Conc 31.6 g/dL (32-36); Mean Corpuscular Hgb 25.5 pg (27.0-32.0); Mean Corpuscular Volume 80.7 fL (80-94); Mean Platelet Vol. 11.3 fl (6.2-12.0); Monocyte# 0.62 X10^3/uL; NRBC Flagged by Analyzer 0 % (0-5); Neutrophil # 4.99 X10^3/uL (2.7-7.7); Neutrophil % 64.2 % (47-70); Platelet Count 200 K/mm3 (150-450); RBC Distribution Width CV 15.3 % (11.6-14.6); Red Blood Count 5.02 M/mm3 (4.6-6.2); White Blood Count 7.8 K/mm3 (4.4-11.0)
[2020-01-13 15:42] LABS: ALB/GLOB Ratio 0.7 RATIO (0.9-2.4); AST(SGOT) 23 U/L (15-37); Alanine Aminotransfer ALT/SGPT 26 U/L (16-61); Albumin, Serum 3.4 g/dL (3.2-5.0); Alkaline Phosphatase 107 U/L (45-117); Anion Gap 8 (5-15); BUN 18 mg/dL (7-18); BUN/Creat Ratio 17.3 RATIO (10-20); Calcium,Total 8.7 mg/dL (8.5-10.1); Chloride 102 mmol/L (98-107); Creatinine, Serum 1.04 mg/dL (0.70-1.30); EST Glomerular Filtration Rate 78 mL/min (>60); Est Glom Filt Rate - Afr Amer 95 mL/min (>60); Globulin 4.9 g/dL (2.2-4.2); Glucose 228 mg/dL (74-106); Potassium 4.1 mmol/L (3.5-5.1); Protein, Total 8.3 g/dL (6.4-8.2); Sodium Level 134 mmol/L (136-145); T4 Total, Thyroxin 12.2 ug/dL (4.5-12.1); Thyroid Stim Hormone (TSH) 0.64 uIU/mL (0.358-3.74)
== END | disposition home or self-care (01) ==
LOC: MTLAB 12:44
PROVIDERS: PCP Family Medicine; Referring Provider Family Medicine; Visit Provider Family Medicine
DX: E03.9 Hypothyroidism, unspecified (principal); D64.9 Anemia, unspecified; R06.02 Shortness of breath
CPT/HCPCS: 36415; 71046; 80053; 84436; 84443; 85025

== ENCOUNTER → 2020-01-21 | Outpatient (CLI) | payer OTHER, SELFPAY ==
[2019-06-26 12:49] VITALS: BMI 44.4
== END | disposition home or self-care (01) ==
PROVIDERS: PCP Family Medicine; Referring Provider Family Medicine; Visit Provider Family Medicine
DX: L02.91 Cutaneous abscess, unspecified (principal)
CPT/HCPCS: 87070; 87077; 87186; 87205

== ENCOUNTER → 2020-02-08 10:29 | Outpatient (CLI) | payer OTHER, SELFPAY ==
[2019-06-26 12:49] VITALS: BMI 44.4
--- NOTE | 2020-02-08 10:33 | STEWCON_ITS ---
Reason For Study: Dyspnea Stress Results Protocol: Jonathon Protocol WITH DEFINITY Maximum Predicted HR: 164 bpm Target HR: 139 bpm % Maximum Predicted HR: 84 % DurationHeart Rate Stage (mm:ss) (bpm) BP Comment Baseline 70 158/90No Chest Pain; 2.5 ML Diluted Definity Jonathon Protocol Stage I 3:00 114 170/80No Chest Pain; Mild Dyspnea Jonathon Protocol Stage II 2:15 138 184/82No Chest Pain; Mod to Severe Dyspnea Recovery 86 158/86No Chest Pain; No Dyspnea Stress Duration: 5:15 mm:ss Maximum Stress HR: 138 bpm METS: 7 Baseline Echocardiogram Findings Stress Echo Wall motion Data Resting WM Intermediate WM Stress WM Interpretation Summary Exercise stress echo. Resting EKG demonstrates normal sinus rhythm with a rate of 78 bpm normal intervals are noted resting blood pressure is 158/90 mmHg. The patient exercised according to regular Jonathon protocol for a total duration of 5 minutes and 15 seconds into stage II of the Jonathon protocol. The maximum heart rate attained was 138 bpm which was 84% of max impacted heart rate the maximum workload was 7 metabolic equivalents. At rest there were no ST or T wave changes noted suggest ischemia at peak exercise T wave inversions were noted in lead I and aVL. No clinical angina was noted the test was terminated due to leg fatigue. No arrhythmias were noted. Stress echocardiogram. Next stress echocardiographic images demonstrated preserved ejection fraction at rest estimated at 55% with no definitive enhancement. During peak exercise there was improvement in ejection fraction estimated at 65% with no wall motion abnormalities present. Conclusion: Normal exercise stress echocardiogram at a moderate workload. Preserved ejection fraction at rest and with exercise. No clinical angina noted. Ordering Physician: Radha Khan Referring Physician: Sumanth Hanna Performed By: Daniela Cisneros, RDCS, RVT
== END ==
LOC: CVS 10:33
PROVIDERS: PCP Family Medicine; Referring Provider Family Medicine; Visit Provider Family Medicine
DX: R06.02 Shortness of breath (principal)
CPT/HCPCS: 93017; 93350; Q9957; A4216; C8928

== ENCOUNTER 2020-03-28 19:52 | Inpatient (IN) | payer OTHER, SELFPAY ==
[2019-06-26 12:49] VITALS: BMI 44.4
[2020-03-28] VITALS (17 sets, daily range): BP systolic 87–156; BP diastolic 54–88; PULSE 101–190; RESP 12–29; TEMP 36.2–37.1; O2SAT 97–100; BMI 45.1; BMI 45.3; BMI 45.4
--- NOTE | 2020-03-28 20:02 | EKG12_ITS ---
Test Reason : HR Blood Pressure : / mmHG Vent. Rate : 191 BPM Atrial Rate : 178 BPM P-R Int : 000 ms QRS Dur : 088 ms QT Int : 230 ms P-R-T Axes : 000 -07 161 degrees QTc Int : 410 ms Atrial fibrillation with premature ventricular or aberrantly conducted complexes Voltage criteria for left ventricular hypertrophy Inferior infarct , age undetermined Abnormal ECG Confirmed by KATHRYN MCRAE, YASH ([id number]), marketing editor BETHEL ROONEY ([id number]) on 04/04/2020 9:14:33 AM Referred By: Confirmed By:THIEN PERALTA MD
--- NOTE | 2020-03-28 20:11 | RAD_ITS ---
STUDY: X-RAY CHEST REASON FOR EXAM: Male, 54 years old. Dyspnea. TECHNIQUE: Single AP portable view of the chest. COMPARISON: 01/13/2020. FINDINGS: The lungs are clear and expanded. There is no demonstrated pleural abnormality. Normal size heart. Normal mediastinum and darrel. Normal visualized pulmonary arteries. Normal visualized aortic arch and descending thoracic aorta. There are diffuse degenerative changes of the visualized thoracic spine. Normal visualized ribs, clavicles, and shoulders. There is no demonstrated abnormality of the visualized soft tissue structures of the upper abdomen. RAD/Chest 1 View (Portable) IMPRESSION: No definite acute or significant abnormality seen. Electronically Signed: Chung Haji MD at 21:02 EST , Service support ,
[2020-03-28] MEDS: dilTIAZem 25 MG/5 ML Vial 20 MG IV BOLUS (20:13)
[2020-03-28 20:26] LABS: Absolute Lymphocyte Count 2.38 X10^3/uL (0.83-4.51); Basophil# 0.08 X10^3/uL; Basophil% 0.8 % (0-1); Eosinophil# 0.17 X10^3/uL; Eosinophils% 1.8 % (0-5); Hematocrit 43.6 % (40-54); Hemoglobin 13.9 g/dL (13.0-16.5); Lymphocyte # 2.38 X10^3/ul (4.0); Lymphocyte % 24.9 % (19-41); Mean Corp Hgb Conc 31.9 g/dL (32-36); Mean Corpuscular Hgb 25.5 pg (27.0-32.0); Mean Corpuscular Volume 79.9 fL (80-94); Mean Platelet Vol. 10.5 fl (6.2-12.0); Monocyte# 0.88 X10^3/uL; Monocyte% 9.2 % (0-10); NRBC Flagged by Analyzer 0 % (0-5); Neutrophil # 5.99 X10^3/uL (2.7-7.7); Neutrophil % 62.9 % (47-70); Platelet Count 250 K/mm3 (150-450); RBC Distribution Width CV 15.6 % (11.6-14.6); Red Blood Count 5.46 M/mm3 (4.6-6.2); White Blood Count 9.5 K/mm3 (4.4-11.0)
--- NOTE | 2020-03-28 20:33 | ED.VIS.GEN ---
History of Present Illness Chief Complaint: Shortness of Breath Informant: Patient Onset: Days - 24 to 48 hours ago Context: Sudden Onset Timing: Continuous Quality: Shortness of breath and back pain Location: Upper midline Current Severity: Mild Maximum Severity: Moderate Worsened by: Dyspnea on exertion Relieved by: Nothing Associated Symptoms: No history of coronary disease. He does have history of hypertension, diab Narrative: Is a middle-age male who presents with shortness of breath. He has no infectious symptoms. Is no exposure to Covid. Denies loss of taste or smell. Eyes rhinorrhea, congestion or postnasal drainage. No sore throat. Denies cough. Denies history of VTE. He denies leg pain, swelling discoloration. He sleeps with 3 pillows because of comfort. He denies orthopnea. He denies hematemesis or melena or hematochezia. He denies hematuria. Nuys epistaxis. He denies headache, visual, ocular auditory symptoms. Nuys trouble with speech or swallowing. He denies abdominal pain. He denies paresthesia, anesthesia or motor weakness. Prior similar symptoms: No Recent Illness/Hospitalization: No - Past Medical History (1) Dyspnea on exertion Status: Acute (2) Essential (primary) hypertension Status: Chronic (3) Hyperlipidemia Status: Chronic (4) TIA (transient ischemic attack) Status: Chronic (5) Hodgkin disease Status: Resolved Comment: chemo and radiation (6) History of hypothyroidism Status: Acute Past Medical History - Allergies and Home Meds Allergies/Adverse Reactions: Allergies metoclopramide HCl [From Reglan] Allergy (Verified 03/28/20 20:22) Anaphylaxis Primary Care Physician: Radha Khan MD [Primary Care Provider] - Prior records reviewed: Yes Surgical History: noncontributory, - - Cervical lymph node resection, L breast lump removal, Lithotripsy. Lives: Spouse/ Significant Other Smoking Status: Never smoker Alcohol: None Drugs: None - Family History Maternal Family History: Family History (Last Reviewed 06/26/19 @ 14:[address] Sumanth Hanna MD) Brother Heart disease Family History: Reports: - - RA in his mother Paternal Family History: Family History (Last Reviewed 06/26/19 @ 14:[address] Sumanth Hanna MD) Brother Heart disease Family History: Reports: Diabetes, - - his father of pancreatitis.....he was a non-drinker and the etiology of the pancreatitis is unknown. His father also had nephrolithiasis Sibling Family History: Family History (Last Reviewed 06/26/19 @ 14:[address] Sumanth Hanna MD) Brother Heart disease Family History: Reports: - - brother who is was an alcoholic and had heart disease Review of Systems General: Denies: Chills, Fever, Malaise, Subjective, Sweats Eyes: Denies: Visual changes - bilaterally, Blurred Vision - bilaterally, Diplopia ENT: Denies: Bilateral ear pain, Rhinorrhea, Sore throat Cardiovascular: Denies: Chest pain, Palpitations, Heart racing Respiratory: Reports: Dyspnea, Dyspnea on exertion. Denies: Cough, Sputum, Orthopnea, Paroxysmal nocturnal dyspnea Gastrointestinal: Denies: Abdominal pain, Nausea, Vomiting, Diarrhea, Melena, Hematochezia Genitourinary: Denies: Dysuria, Hematuria, Frequency Musculoskeletal: Denies: Myalgias, Arthralgias, Neck pain, Back pain, Swelling, Extremity Pain, -, - Skin: Denies: Rash, Wounds Neurological: Denies: Headache, Weakness, Numbness Endocrine: Denies: Polyuria, Polydipsia, Heat intolerance Hematologic: Denies: Easy bruising Allergy: Denies: Uticaria Physical Exam Vital Signs/Narrative: Vital Signs Temp Pulse Resp BP Pulse Ox 03/28/20 20:25 116 H 03/28/20 20:21 138 H 20 H 98/54 L 100 03/28/20 20:16 150 H 20 H 87/63 L 100 03/28/20 20:10 190 H 20 H 99 03/28/20 19:53 97.1 F L 115 H 19 H 115/61 98 General: Well nourished, Well developed, Obese, Acute Distress - And appears slightly dyspneic. Head: Normocephalic, Atraumatic Eyes: Perrl, EOMI. Negative for: Pale conjunctiva, Scleral icterus ENT: Moist mucous membranes, No rhinorrhea, TM's clear Neck: Supple, Nontender, No lymphadenopathy, No JVD Cardiovascular: Irregular, Tachycardia Respiratory: CTA bilaterally, Chest nontender. Negative for: No distress Abdomen: Soft, Nontender, Nondistended, Normal bowel sounds, No masses. Negative for: Hepatomegaly, Splenomegaly Rectal: Deferred Back: Nontender, Normal Inspection. Negative for: CVA tenderness Extremities: Nontender, No edema Skin: Normal color, No rash, No Trauma. Negative for: Cyanosis, Diaphoresis, Jaundice Neurological: Alert, Oriented x3, Cranial nerves II-XII grossly intact, Normal Strength, Normal Sensation Psychological: Normal affect Diagnostic/Tx/Re-eval Chest X-Ray - ED: 1 View, Read by ED Physician, Unchanged, Heart, Lungs, Mediastinum, No Acute Disease 03/28/20 20:11 Chest 1 View (Portable) [RAD] Stat Laboratory Results 03/28/20 03/28/20 03/28/20 20:10 20:10 20:10 WBC 9.5 RBC 5.46 Hgb 13.9 Hct 43.6 MCV 79.9 L MCH 25.5 L MCHC 31.9 L RDW Std Deviation 44.0 H RDW Coeff of Gavi 15.6 H Plt Count 250 MPV 10.5 Immature Gran % (Auto) 0.400 Neut % (Auto) 62.9 Lymph % (Auto) 24.9 Daggett % (Auto) 9.2 Eos % (Auto) 1.8 Baso % (Auto) 0.8 Absolute Neuts (auto) 6.0 Absolute Lymphs (auto) 2.38 Nucleated RBC % 0 PT 12.2 INR 1.0 APTT 24.6 Sodium 133 L Potassium 4.1 Chloride 97 L Carbon Dioxide 23.0 Anion Gap 13 BUN 32 H Creatinine 1.71 H Estim Creat Clear Calc 48.24 Est GFR (MDRD) Af Amer 53 L Est GFR (MDRD) Non-Af 44 L BUN/Creatinine Ratio 18.7 Glucose 400 H Lactic Acid Calcium 8.9 Troponin I 0.051 H POC Glucose 03/28/20 03/28/20 20:10 20:28 WBC RBC Hgb Hct MCV MCH MCHC RDW Std Deviation RDW Coeff of Gavi Plt Count MPV Immature Gran % (Auto) Neut % (Auto) Lymph % (Auto) Daggett % (Auto) Eos % (Auto) Baso % (Auto) Absolute Neuts (auto) Absolute Lymphs (auto) Nucleated RBC % PT INR APTT Sodium Potassium Chloride Carbon Dioxide Anion Gap BUN Creatinine Estim Creat Clear Calc Est GFR (MDRD) Af Amer Est GFR (MDRD) Non-Af BUN/Creatinine Ratio Glucose Lactic Acid 3.7 H* Calcium Troponin I POC Glucose 394 H CBC is remarkable for microcytic indices. PT/INR PTT are normal. Glucose is elevated 400. Lactate elevated 3.7. Patient is diabetic and on Metformin. This may also be due to poor perfusion because heart rate was initially greater than 200. Troponin is slightly elevated 0.051. Presume this is due to his rapid heartbeat. Creatinine is elevated 1.71. Recent creatinine was 1.07. This is a new elevation. This may also contribute to the elevated lactate. - EKG Initial EKG Interpretation: Atrial Fibrillation - Atrial fibrillation with RVR. Ventricular rate is 191. QRS duration 88 ms. QT duration 230 ms. Patient has evidence of LVH by voltage criteria. There is decreased anterior forces noted. There is ST-T wave changes which is felt to be due to demand/heart rate. - Medical Decision Making With acute dyspnea need to rule out pneumothorax, pneumonia, congestive heart failure, and VTE. In light of A. fib with RVR need to rule out cardiac ischemia. TSH was obtained since he is on thyroid medicine and his level has not been checked recently. Patient had something to eat 20 minutes prior to presentation and is not a candidate for sedation with cardioversion unless he becomes unstable. Patient was treated with bolus of Cardizem and started on a drip. He also received Lovenox since the onset is unknown. He was unaware that his heart rate was between 190 and 210. He has no contraindication to anticoagulation. Patient heart rate decreased to 120 after 20 of Cardizem IV push. Cardizem drip was ordered. When patient was reassessed at 2049 heart rate was 1 50-1 60. The Cardizem drip had not been started. He was ordered 25 mg of Cardizem IV push prior to administration of the infusion. Spoke with hospitalist. He requested antigen test prior to admission to stepdown. - Critical Care Time Critical care time (excluding procedures): 30-74 minutes - Care time 33 minutes, Discussing w/Patient &/or Family/Qualitative Researcher, Discussing w/Consultants, Arranging Admission or Transfer ED Disposition - Plan for ED Patient: Disposition: Acute Care Hospital [facility] Diagnosis: Atrial fibrillation with RVR, Lactic acidosis, Hyperglycemia due to type 2 diabetes mellitus, Acute renal insufficiency Referrals: Radha Khan MD [Primary Care Provider] -
[2020-03-28 20:36] LABS: Bedside Glucose 394 mg/dL (70-110)
[2020-03-28 20:41] LABS: Anion Gap 13 (5-15); BUN 32 mg/dL (7-18); BUN/Creat Ratio 18.7 RATIO (10-20); Calcium,Total 8.9 mg/dL (8.5-10.1); Chloride 97 mmol/L (98-107); Creatinine, Serum 1.71 mg/dL (0.70-1.30); EST Glomerular Filtration Rate 44 mL/min (>60); Est Glom Filt Rate - Afr Amer 53 mL/min (>60); Estimated Creatinine Clearance 48.24 ml/min; Glucose 400 mg/dL (74-106); Potassium 4.1 mmol/L (3.5-5.1); Prothrombin Time (Protime)PT. 12.2 SECONDS (11.7-14.9); Sodium Level 133 mmol/L (136-145)
[2020-03-28 20:42] LABS: Partial Thromboplast Time 24.6 Seconds (24.1-36.2)
[2020-03-28] MEDS: Enoxaparin 150 MG/ML Syringe SC (20:42)
[2020-03-28 20:54] LABS: Lactic Acid 3.7 mmol/L (0.4-1.9)
[2020-03-28] MEDS: dilTIAZem 25 MG/5 ML Vial IV BOLUS (21:00)
--- NOTE | 2020-03-28 21:16 | HP.PCM_ITS ---
Problem List (1) 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 Status: Chronic (2) Depression Status: Chronic (3) Hypothyroidism Status: Chronic (4) Acute kidney injury Status: Acute (5) Atrial fibrillation with RVR Status: Acute (6) Lactic acidosis Status: Acute (7) Hyperglycemia due to type 2 diabetes mellitus Status: Acute (8) Essential (primary) hypertension Status: Chronic (9) Hyperlipidemia Status: Chronic Qualifiers: Hyperlipidemia type: unspecified Qualified Code(s): E78.5 - Hyperlipidemia, unspecified (10) TIA (transient ischemic attack) Status: Chronic (11) Hodgkin disease Status: Chronic Comment: chemo and radiation History of Present Illness Date of Admission: 03/28/20 Chief Complaint: Shortness of breath. The patient is a 54 year old M with past medical history as mentioned above presented to the emergency room because of shortness of breath. His symptoms started yesterday morning with shortness of breath, mainly with mild to moderate exertion, aggravated by activity, relieved with rest, associated with palpitation and mild dizziness. At the same time, he complains of low back pain which is described as low back discomfort, dull aching, not radiating and he went to chiropractic today and he mentioned that no improvement after the exercises that was made by the chiropractor. He denied fever or chills. He denied sinus congestion, sore throat, loss of taste or smell. He denied exposure to COVID-19. He denies orthopnea or PND. In the emergency department, patient was afebrile, he was in A. fib with RVR, heart rate was up to 190s, blood pressure was stable. His pulse ox was 100% on 2 L. Routine blood work was remarkable for sodium of 133, BUN of 32, creatinine is 1.71. Blood glucose was 400. Lactic acid was 3.7. EKG revealed A. fib with RVR, no acute acute changes. Troponin was 0.051. Chest x-ray showed no obvious acute infiltrate or consolidation. COVID-19 antigen came back negative. He is being admitted for new onset A. fib with RVR, acute kidney injury, hyperglycemia without evidence of DKA and lactic acidosis. Past Medical History Past Medical History (Chronic Problems): Chronic Problems (Last Updated 03/28/20 @ 21:[address] Gonzalo Elizabeth MD) 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 (Chronic) Depression (Chronic) Hypothyroidism (Chronic) Essential (primary) hypertension (Chronic) Hyperlipidemia (Chronic) TIA (transient ischemic attack) (Chronic ~2019) Hodgkin disease (Chronic) chemo and radiation Medical History: Medical History (Last Updated 03/28/20 @ 21:[address] Gonzalo Elizabeth MD) Essential (primary) hypertension (Chronic) I10 Hyperlipidemia (Chronic) E78.5 TIA (transient ischemic attack) (Chronic) Onset Date: ~2018 G45.9 Hodgkin disease (Chronic) C81.90 chemo and radiation Anxiety and depression F41.9, F32.9 BPH (benign prostatic hyperplasia) N40.0 Diabetes mellitus, type II E11.9 GERD (gastroesophageal reflux disease) K21.9 Hypothyroidism E03.9 Morbid obesity with BMI of 45.0-49.9, adult E66.01, Z68.42 Nephrolithiasis KIANNA (obstructive sleep apnea) G47.33 He tells me that he no longer has KIANNA since he lost 50 lbs and he no longer wears CPAP Allergies metoclopramide HCl [From Reglan] Allergy (Verified 03/28/20 20:22) Anaphylaxis Home Medications: Ambulatory Orders Medication Instructions Recorded Levothyroxine [Synthroid] 125 mcg PO DAILY 05/03/15 Pantoprazole Sodium [Protonix] 40 mg PO DAILY 05/03/15 Tamsulosin HCl [Flomax] 0.4 mg PO DAILY 09/08/15 Buspirone HCl 10 mg PO TID PRN 04/17/18 Duloxetine HCl 60 mg PO DAILY 04/17/18 Atorvastatin Calcium [Lipitor] 80 mg PO QHS #30 tab 04/19/18 Sitagliptin Phosphate [Januvia] 100 mg PO DAILY 10/15/18 metFORMIN (XR) [Glucophage Xr] 500 mg PO DAILY 10/15/18 aspirin 325 mg tablet 325 mg PO DAILY 11/03/18 atenolol 100 mg tablet 100 mg PO DAILY #90 tab 01/12/19 insulin glargine U-300 conc 300 50 unit SC DAILY 06/26/19 unit/mL (3 mL) subcutaneous pen hydrochlorothiazide 25 mg tablet 25 mg PO DAILY #90 tab 02/12/20 lisinopril 40 mg tablet 40 mg PO DAILY #90 tab 02/12/20 Insulin Glargine,Hum.rec.anlog 45 units SQ DAILY 12/28/20 [Vania Martinez] Surgical History: Surgical History (Last Reviewed 06/26/19 @ 14:[address] Sumanth Hanna MD) History of left heart catheterization Onset Date: 2009 Z98.890 History of thoracentesis Onset Date: ~2015 Z98.890 Hx of nephrolithotomy with removal of calculi Z98.890, Z87.442 Surgical History: - - Cervical lymph node resection, L breast lump removal, Lithotripsy. Psychiatric History: Depression Lives: Spouse/ Significant Other Smoking Status: Never smoker Alcohol: None Drugs: None - *Family History Maternal Family History: Family History (Last Reviewed 06/26/19 @ 14:[address] Sumanth Hanna MD) Brother Heart disease History Items: - - RA in his mother Paternal Family History: Family History (Last Reviewed 06/26/19 @ 14:[address] Sumanth Hanna MD) Brother Heart disease History Items: Diabetes, - - his father of pancreatitis.....he was a non-drinker and the etiology of the pancreatitis is unknown. His father also had nephrolithiasis Sibling Family History: Family History (Last Reviewed 06/26/19 @ 14:[address] Sumanth Hanna MD) Brother Heart disease History Items: - - brother who is was an alcoholic and had heart disease Review of Systems Constitutional: Denies: Anorexia, Chills, Fever, Malaise, Weakness Eyes: Denies: Blurred vision, Double vision, Drainage, Redness HEENT: Denies: Difficulty Hearing, Ear Pain, Eye Pain, Nasal Congestion, Sore Throat Cardiovascular: Reports: Light Headedness, Palpitations. Denies: Chest Pain, Chest Pressure, Chest Tightness, Syncope Respiratory: Reports: Shortness of Breath, Shortness of breath upon exertion. Denies: Cough, Pleuritic Pain, Sputum production, Wheezing Gastrointestinal: Denies: Abdominal Pain, Constipation, Diarrhea, Nausea, Vomiting Genitourinary: Denies: Dysuria, Frequency, Hematuria Musculoskeletal: Denies: Arm Pain, Back Pain, Foot Pain Skin: Denies: Dryness, Rash Neurological: Denies: Balance problems, Blurred vision, Double vision, Change in Speech, Slurred speech, Confusion, Headaches, Incoordination Psychiatric: Reports: Depression. Denies: Anxiety Endocrine: Denies: Change in Body Habitus, Polydipsia, Polyuria VTE Information - Inpt Only VTE Present on Admission: No VTE Mechan Device Prophylaxis: None VTE Pharm Prophylaxis ordered?: No Patient Problems: Active and Suspected Problems (Last Updated 03/28/20 @ 21:[address] Gonzalo Elizabeth MD) Acute kidney injury (Acute) Atrial fibrillation with RVR (Acute) Lactic acidosis (Acute) Hyperglycemia due to type 2 diabetes mellitus (Acute) - Physical Exam Vitals/I&O's: Vital Signs Temp Pulse Resp BP Pulse Ox 98.1 F 111 H 23 H 114/73 100 03/28/20 21:08 03/28/20 21:08 03/28/20 21:08 03/28/20 21:08 03/28/20 21:08 Oxygen Flow Rate (L/min) 2 Oxygen Delivery Method Room Air Weight: 305 lb 5.443 oz Body Mass Index (BMI) 45.1 Finger Stick Blood Glucose 394 General: Alert, Oriented x3, Cooperative, No apparent distress HEENT: Atraumatic, PERRLA, EOMI, Normocephalic Oral: Moist Mucosa, No Gingival or Mucosal Lesions/ Ulcerations Neck: Supple, No JVD, Negative Carotid Bruits, Trachea Midline, Thyroid Normal Size and Texture Lungs: Clear to auscultation, No rhonchi, No wheeze, No rales, Diminished, - - Decreased breath sounds bilateral, otherwise clear. Cardiovascular: Normal S1, Normal S2, PMI Normal, Irregular Rate, Tachycardic Abdomen: Bowel Sounds Present, Soft, Non Tender, Non-Distended, No Hepato- splenomegaly, Obese Extremities: No clubbing, No cyanosis, No edema Skin: No rashes, No breakdown Lymphatic: No Cervical, Supraclavicular, or Inguinal Adenopathy Neurological: Cranial nerves II-XII grossly intact, Motor Exam 5/5 strength throughout Psych/Mental Status: Normal Affect, Appropriate, Alert and oriented to time, place, person, mood and affect Laboratory Results 03/28/20 20:10: WBC 9.5, RBC 5.46, Hgb 13.9, Hct 43.6, MCV 79.9 L, MCH 25.5 L, MCHC 31.9 L, RDW Std Deviation 44.0 H, RDW Coeff of Gavi 15.6 H, Plt Count 250, MPV 10.5, Immature Gran % (Auto) 0.400, Neut % (Auto) 62.9, Lymph % (Auto) 24.9, [place] % (Auto) 9.2, Eos % (Auto) 1.8, Baso % (Auto) 0.8, Absolute Neuts (auto) 6.0, Absolute Lymphs (auto) 2.38, Nucleated RBC % 0 03/28/20 20:10: PT 12.2, INR 1.0, APTT 24.6 03/28/20 20:10: Sodium 133 L, Potassium 4.1, Chloride 97 L, Carbon Dioxide 23.0, Anion Gap 13, BUN 32 H, Creatinine 1.71 H, Estim Creat Clear Calc 48.24, Est GFR (MDRD) Af Amer 53 L, Est GFR (MDRD) Non-Af 44 L, BUN/Creatinine Ratio 18.7, Glucose 400 H, Calcium 8.9, Troponin I 0.051 H 03/28/20 20:10: Lactic Acid 3.7 H* 03/28/20 20:28: POC Glucose 394 H Clinical Impression(s) from Imaging Studies Chest X-Ray 03/28/20 20:11 IMPRESSION: No definite acute or significant abnormality seen. Electronically Signed: Chung Haji MD at 21:02 EST , Service support , Current Medications Diltiazem HCl 125 mg/ Dextrose 125 mls @ 5 mls/hr IV .Q25H ALTA; Protocol Last Admin: 03/28/20 21:02 Dose: 5 mg/hr, 5 mls/hr Documented by: Assessment/Plan All Active Problems (Last Updated 03/28/20 @ 21:[address] Gonzalo Elizabeth MD) Acute kidney injury (Acute) Atrial fibrillation with RVR (Acute) Lactic acidosis (Acute) Hyperglycemia due to type 2 diabetes mellitus (Acute) This is a 54 years old male patient presented to the emergency room because of shortness of breath with palpitation and mild dizziness, found to have new onset A. fib with RVR as well as acute kidney injury, hyperglycemia and lactic acidosis and he is being admitted for evaluation and treatment. #1 new onset A. fib with RVR: Heart rate was up to 190s in the ED. Received 2 doses of IV Cardizem bolus and heart rate remained fast. He was started on Cardizem drip. EKG without acute ischemic changes. Troponin is 0.051, indeterminate. TSH was normal. Chest x-ray without acute findings. Patient had stress echocardiogram on January, that was normal without EKG or echocardiographic ischemic changes, preserved ejection fraction. Plan: Admit to PCU, cardiac monitoring, serial cardiac enzymes, continue IV Cardizem drip, therapeutic Lovenox twice daily for anticoagulation, gentle IV fluids for hydration, Tylenol as needed, Zofran as needed, repeat CBC and BMP tomorrow morning, cardiology consult. #2 acute kidney injury/hyponatremia: Likely due to dehydration and medication side effects. Patient has been on HCTZ and Metformin as well as lisinopril. Sodium is 133 which is likely due to pseudohyponatremia secondary to hyperglycemia. Plan: IV fluids, input output chart, hold HCTZ and Metformin, repeat BMP tomorrow morning. #3 lactic acidosis: Without obvious source of infection. Patient is afebrile, no leukocytosis. COVID-19 antigen came back negative. Plan for IV fluids, blood culture, urinalysis, urine culture. No indication to start IV antibiotics. #4 hyperglycemia/uncontrolled type 2 diabetes mellitus: Blood sugar was 400, no evidence of DKA. Hemoglobin A1c was 10.5% on June,. Plan: Accu-Cheks, insulin sliding scale, continue insulin glargine, continue Januvia, hold Metformin, hemoglobin A1c. #5 hypertension: Blood pressure stable, continue atenolol, hold HCTZ, continue lisinopril. #6 hypothyroidism: TSH was normal, continue levothyroxine. #7 hyperlipidemia: Continue statins. #8 history of Hodgkin's disease: Status post chemotherapy and radiation long time ago, condition, stable. #9 DVT prophylaxis: He will be on therapeutic Lovenox twice daily. This note was generated with [employer] software. It may contain incorrect words, spelling, and punctuation that were not noted in checking the note before signing. Inpatient E&M: 09055 Init Hosp L3
[2020-03-28 23:19] LABS: Hemoglobin A1c 10.8 % (3.8-5.6)
[2020-03-28] MEDS: Insulin Lispro 100 UNIT/ML INSULN.PEN SC (23:22)
[2020-03-28] MEDS: 0.9% Normal Saline 1,000 ML 100 ML IV (23:24)
[2020-03-28 23:36] LABS: Bedside Glucose 449 mg/dL (70-110)
[2020-03-28 23:59] LABS: Bacteria 0 SEEN /hpf (None Seen); Mucous, Urine 0 SEEN /hpf (<or=2+); Squamous Epithelial Cells - UA 0 SEEN /hpf (0-5); White Blood Cells 0 SEEN /hpf (0-5)
[2020-03-29] VITALS (28 sets, daily range): BP systolic 92–175; BP diastolic 44–87; PULSE 65–101; RESP 15–32; TEMP 36.4–36.6; O2SAT 92–100
--- NOTE | 2020-03-29 | EKG12_ITS ---
Test Reason : CONV TO NSR Blood Pressure : / mmHG Vent. Rate : 098 BPM Atrial Rate : 098 BPM P-R Int : 142 ms QRS Dur : 108 ms QT Int : 388 ms P-R-T Axes : 029 -13 145 degrees QTc Int : 495 ms Normal sinus rhythm Voltage criteria for left ventricular hypertrophy Inferior infarct (cited on or before 17-APR-2018) T wave abnormality, consider lateral ischemia Abnormal ECG When compared with ECG of 15-OCT-2018 13:22, Premature ventricular complexes are no longer Present Confirmed by KATHRYN MCRAE, YASH ([id number]), web content editor BETHEL ROONEY ([id number]) on 03/31/2020 11:57:58 AM Referred By: DR CUEVAS Confirmed By:THIEN PERALTA MD
[2020-03-29 00:06] LABS: Color, Urine Yellow (Yellow); Glucose, Dipstick 1000 mg/dl (Normal); Ketone-Dipstick Negative (Negative); Urine Bilirubin Dipstick Negative (Negative); Urine Clarity Clear (Clear)
[2020-03-29 00:07] LABS: Leukocyte Esterase-Dipstick Negative /ul (Negative); Nitrite-Dipstick Negative (Negative); Occult Blood-Urine 10 /ul (Negative); Protein-Dipstick Negative (Negative); Specific Gravity, Urine 1.015 (1.002-1.030); Urine Urobilinogen Normal (Normal)
[2020-03-29 00:10] LABS: Red Blood Cells-Urine 10-25 SEEN /hpf (0-5)
[2020-03-29 00:19] LABS: Reflex Lactate? Y
[2020-03-29 02:25] LABS: Hematocrit 37.6 % (40-54); Hemoglobin 12.2 g/dL (13.0-16.5); Mean Corp Hgb Conc 32.4 g/dL (32-36); Mean Corpuscular Hgb 25.9 pg (27.0-32.0); Mean Corpuscular Volume 79.8 fL (80-94); Mean Platelet Vol. 10.4 fl (6.2-12.0); Platelet Count 158 K/mm3 (150-450); RBC Distribution Width CV 15.6 % (11.6-14.6); RBC Distribution Width SD 44.5 fl (35.1-43.9); Red Blood Count 4.71 M/mm3 (4.6-6.2); White Blood Count 8.2 K/mm3 (4.4-11.0)
[2020-03-29 03:01] LABS: ALB/GLOB Ratio 0.8 RATIO (0.9-2.4); AST(SGOT) 25 U/L (15-37); Alanine Aminotransfer ALT/SGPT 28 U/L (16-61); Alkaline Phosphatase 96 U/L (45-117); Anion Gap 12 (5-15); BUN 31 mg/dL (7-18); Calcium,Total 7.9 mg/dL (8.5-10.1); Chloride 101 mmol/L (98-107); Creatinine, Serum 1.29 mg/dL (0.70-1.30); EST Glomerular Filtration Rate 61 mL/min (>60); Est Glom Filt Rate - Afr Amer 74 mL/min (>60); Estimated Creatinine Clearance 63.94 ml/min; Glucose 318 mg/dL (74-106); Sodium Level 132 mmol/L (136-145)
[2020-03-29] MEDS: Levothyroxine 125 MCG Tablet PO (05:30)
[2020-03-29 06:46] LABS: Bedside Glucose 290 mg/dL (70-110)
[2020-03-29] MEDS: 0.9% Normal Saline 1,000 ML 100 ML IV (09:32)
--- NOTE | 2020-03-29 10:13 | CASEMGMT ---
Face to Face with patient for initial transition planning/care coordination assessment. CAMILA LUCERO introduced self and role at [facility], voices understanding. Care providers, pharmacy, and demographics verified. PCP: Dr. Khan Specialists: Dr. Hanna; had seen various urologists in the past for kidney stones but is not currently seeing anyone due to retirements and physicians leaving practices. Previously saw Dr. Ballesteros for sleep apnea but after weight loss he states he no longer needs to use CPAP machine. Preferred Pharmacy: Pt uses [facility] in [place] routinely but would like [facility] Retail pharmacy at discharge. Pharmacy preferences have been updated. Insurance: [employer] Prescription Benefit: Yes Living Will/HPOA: Yes/ Michaelle is HPOA LNOK: Michaelle Living Arrangements: Lives in a single story home with his . There is one step to enter the home. His [id number] lives in their basement. ADL's: Pt is independent with ADLS. Transportation: Pt drives. His also drives if he is unable. DME/HHC: Pt currently does not need but does have available shower chair, cane, walker, wheelchair that his uses are they have obtained from other family members. Pt states he does have a glucometer and supplies and checks his blood sugar intermittently. Pt denies any issues and/or questions regarding his insulin. 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 Plan: Home with support of . Pt denies any discharge needs at this time. Will monitor for any changes including anticoagulant need at discharge. Letty Lau RN CM
[2020-03-29 11:26] LABS: Bedside Glucose 281 mg/dL (70-110)
[2020-03-29] MEDS: Lisinopril 40 MG Tablet PO (12:30)
[2020-03-29] MEDS: Pantoprazole Sodium 40 MG Tablet PO (12:30)
[2020-03-29] MEDS: Enoxaparin 120 MG/0.8 ML Syringe SC (12:30)
[2020-03-29] MEDS: DULoxetine Hcl 60 MG Capsule PO (12:30)
[2020-03-29] MEDS: LINAGLIPTIN 5 MG TABLET PO (12:31)
[2020-03-29] MEDS: Aspirin 325 MG Tablet PO (12:31)
[2020-03-29] MEDS: Tamsulosin HCl 0.4 MG Capsule PO (12:31)
[2020-03-29] MEDS: Atenolol 100 MG Tablet PO (12:31)
[2020-03-29] MEDS: dilTIAZem 60 MG Tablet PO ×2 (12:32→18:25)
[2020-03-29] MEDS: Insulin Lispro 100 UNIT/ML INSULN.PEN SC ×4 (12:32→22:01)
--- NOTE | 2020-03-29 15:24 | PN_ITS ---
Patient Problems: Active and Suspected Problems (Last Updated 03/28/20 @ 21:[address] Gonzalo Elizabeth MD) Acute kidney injury (Acute) Atrial fibrillation with RVR (Acute) Lactic acidosis (Acute) Hyperglycemia due to type 2 diabetes mellitus (Acute) Reason for Visit: afib rvr Subjective: no further SOB or pounding pulse felt in neck (what he felt yesterday). No CP, dizziness, or LH. Pulse drastically improved on IV cardizem. Pt denies prior hx of afib. Vitals/I&O's: Vital Signs Temp Pulse Resp BP Pulse Ox 97.6 F L 66 27 H 112/52 L 94 03/29/20 11:02 03/29/20 15:00 03/29/20 14:45 03/29/20 14:45 03/29/20 14:45 Oxygen Flow Rate (L/min) 2 Oxygen Delivery Method Room Air Weight: 307 lb 5.19 oz Body Mass Index (BMI) 45.3 Finger Stick Blood Glucose 394 Intake and Output for Last 24 Hours 03/27/20 03/28/20 03/29/20 23:59 23:59 23:59 Intake Total 33.25 / 37.00 1220.00 / 1220.00 Output Total 325 / 325 1175 / 1175 Balance -291.75 / -288.00 45.00 / 45.00 General: Alert, Oriented x3, Cooperative HEENT: Atraumatic, PERRLA, EOMI, Normocephalic Neck: Supple, No JVD, Negative Carotid Bruits Lungs: Clear to auscultation, Normal air movement Cardiovascular: No murmurs, Irregular Rate Abdomen: Bowel Sounds Present, Soft, Non Tender, Obese Extremities: No edema, Capillary Refill Less than 3 Seconds Skin: No rashes, No breakdown Musculoskeletal: No Tenderness to Palpation of Joints or Extremities Neurological: Cranial nerves II-XII grossly intact Psych/Mental Status: Normal Affect, Appropriate, Alert and oriented to time, place, person, mood and affect Microbiology Past 72 Hours 03/28/20 21:13 Mucosa - Nose SARS-CoV-2 Antigen (Rapid) - Final Laboratory Results 03/28/20 20:10: WBC 9.5, RBC 5.46, Hgb 13.9, Hct 43.6, MCV 79.9 L, MCH 25.5 L, MCHC 31.9 L, RDW Std Deviation 44.0 H, RDW Coeff of Gavi 15.6 H, Plt Count 250, MPV 10.5, Immature Gran % (Auto) 0.400, Neut % (Auto) 62.9, Lymph % (Auto) 24.9, [place] % (Auto) 9.2, Eos % (Auto) 1.8, Baso % (Auto) 0.8, Absolute Neuts (auto) 6.0, Absolute Lymphs (auto) 2.38, Nucleated RBC % 0 03/28/20 20:10: PT 12.2, INR 1.0, APTT 24.6 03/28/20 20:10: Sodium 133 L, Potassium 4.1, Chloride 97 L, Carbon Dioxide 23.0, Anion Gap 13, BUN 32 H, Creatinine 1.71 H, Estim Creat Clear Calc 48.24, Est GFR (MDRD) Af Amer 53 L, Est GFR (MDRD) Non-Af 44 L, BUN/Creatinine Ratio 18.7, Glucose 400 H, Calcium 8.9, Troponin I 0.051 H 03/28/20 20:10: Lactic Acid 3.7 H* 03/28/20 20:10: TSH 2.50 03/28/20 20:10: Hemoglobin A1c 10.8 H 03/28/20 20:28: POC Glucose 394 H 03/28/20 23:00: Troponin I 0.127 H 03/28/20 23:11: POC Glucose 449 H 03/28/20 23:55: Urine Color Yellow, Urine Clarity Clear, Urine pH 5.0, Ur Specific [place] 1.015, Urine Protein Negative, Urine Glucose (UA) 1000 H, Urine Ketones Negative, Urine Occult Blood 10 H, Urine Nitrite Negative, Urine Bilirubin Negative, Urine Urobilinogen Normal, Ur Leukocyte Esterase Negative, Urine RBC 10-25 SEEN, Urine WBC 0 SEEN, Ur Squamous Epith Cells 0 SEEN, Urine Bacteria 0 SEEN, Urine Mucus 0 SEEN 03/29/20 00:31: Lactic Acid 3.0 H* 03/29/20 02:13: WBC 8.2, RBC 4.71, Hgb 12.2 L, Hct 37.6 L, MCV 79.8 L, MCH 25.9 L, MCHC 32.4, RDW Std Deviation 44.5 H, RDW Coeff of Gavi 15.6 H, Plt Count 158, MPV 10.4 03/29/20 02:13: Sodium 132 L, Potassium 4.0, Chloride 101, Carbon Dioxide 19.0 L , Anion Gap 12, BUN 31 H, Creatinine 1.29, Estim Creat Clear Calc 63.94, Est GFR (MDRD) Af Amer 74, Est GFR (MDRD) Non-Af 61, BUN/Creatinine Ratio 24.0 H, Glucose 318 H, Calcium 7.9 L, Total Bilirubin 0.50, AST 25, ALT 28, Alkaline Phosphatase 96, Total Protein 7.0, Albumin 3.0 L, Globulin 4.0, Albumin/Globulin Ratio 0.8 L 03/29/20 02:13: Troponin I 0.147 H 03/29/20 06:38: POC Glucose 290 H 03/29/20 11:01: POC Glucose 281 H Current Medications Acetaminophen (Acetaminophen 325 Mg Tablet) 650 mg PO Q6H PRN PRN PRN Reason: Pain Score 1-10/Temp > 100.7 F Aspirin (Aspirin 325 Mg Tablet) 325 mg PO DAILYCM [facility] Last Admin: 03/29/20 12:31 Dose: 325 mg Documented by: Atenolol (Atenolol 100 Mg Tablet) 100 mg PO DAILY [facility] Last Admin: 03/29/20 12:31 Dose: 100 mg Documented by: Atorvastatin Calcium (Atorvastatin Calcium 80 Mg Tablet) 80 mg PO QHS [facility] Last Admin: 03/28/20 23:12 Dose: Not Given Documented by: Diltiazem HCl (Diltiazem 60 Mg Tablet) 60 mg PO Q6 [facility] Last Admin: 03/29/20 12:32 Dose: 60 mg Documented by: Duloxetine HCl (Duloxetine Hcl 60 Mg Capsule) 60 mg PO DAILY [facility] Last Admin: 03/29/20 12:30 Dose: 60 mg Documented by: Enoxaparin Sodium (Enoxaparin 120 Mg/0.8 Ml Syringe) 120 mg SC Q12 [facility] Diltiazem HCl 125 mg/ Dextrose 125 mls @ 5 mls/hr IV .Q25H [facility]; Protocol Last Titration: 03/29/20 14:45 Dose: 5 mg/hr, 5 mls/hr Documented by: Sodium Chloride () 1,000 mls @ 100 mls/hr IV .Q10H [facility] Stop: 03/29/20 18:31 Last Admin: 03/29/20 09:32 Dose: 100 mls/hr Documented by: Insulin Glargine (Insulin Glargine 100 Units/Ml Pen) 45 units SC DAILY [facility] Last Admin: 03/29/20 12:32 Dose: 45 units Documented by: Insulin Human Lispro (Insulin Lispro 100 Unit/Ml Insuln.Pen) 0 unit SC ACHS [facility]; Protocol Last Admin: 03/29/20 12:32 Dose: 9 units Documented by: Levothyroxine Sodium (Levothyroxine 125 Mcg Tablet) 125 mcg PO DAILY@0600 [facility] Last Admin: 03/29/20 05:30 Dose: 125 mcg Documented by: Linagliptin (Linagliptin 5 Mg Tablet) 5 mg PO DAILY [facility] Last Admin: 03/29/20 12:31 Dose: 5 mg Documented by: Lisinopril (Lisinopril 40 Mg Tablet) 40 mg PO DAILY [facility] Last Admin: 03/29/20 12:30 Dose: 40 mg Documented by: Ondansetron HCl (Ondansetron 4 Mg/2 Ml Vial) 4 mg IV Q8H PRN PRN PRN Reason: NAUSEA/VOMITING Pantoprazole Sodium (Pantoprazole Sodium 40 Mg Tablet) 40 mg PO DAILY [facility] Last Admin: 03/29/20 12:30 Dose: 40 mg Documented by: Senna/Docusate Sodium (Senna/Docusate Sodium 1 Tablet) 2 tablet PO BID PRN PRN PRN Reason: Constipation Sodium Chloride (0.9% Saline Lock 10 Ml Syringe) 10 - 40 ml IV UD PRN PRN Reason: SALINE FLUSH Tamsulosin HCl (Tamsulosin Hcl 0.4 Mg Capsule) 0.4 mg PO DAILY [facility] Last Admin: 03/29/20 12:31 Dose: 0.4 mg Documented by: Zolpidem Tartrate (Zolpidem Tartrate 5 Mg Tablet) 5 mg PO QHS PRN PRN PRN Reason: Insomnia STROKE Vital Signs/Narrative: Vital Signs Pulse Resp BP Pulse Ox 03/29/20 15:00 66 03/29/20 14:45 65 27 H 112/52 L 94 03/29/20 14:30 65 25 H 110/64 96 03/29/20 14:15 66 17 114/60 98 03/29/20 14:00 70 25 H 116/53 L 96 03/29/20 13:00 95 22 H 155/82 H 97 03/29/20 12:00 92 19 H 150/85 H 99 Medical Necessity - Tobacco Use Smoking Status: Never smoker Assessment/Plan All Active Problems (Last Updated 03/28/20 @ 21:[address] Gonzalo Elizabeth MD) Acute kidney injury (Acute) Atrial fibrillation with RVR (Acute) Lactic acidosis (Acute) Hyperglycemia due to type 2 diabetes mellitus (Acute) 1. New onset Afib RVR - cardiology following. Recent echo with preserved EF. Transition cardizem drip to PO cardizem. Continue atenolol. On therapeutic lovenox 2. Indeterminate trop - likely 2/2 above. no plan for cath at this time. 3. SUPA - improved off nephrotoxins and with IVF. Stop fluids. 4. Hyponatremia - stop HCTZ. possibly also due to hyperglycemia. 5. DMt2 with hyperglytcemia - a1c 10.8 - poorly controlled. improving with SSI. Will increase lantus. Start TID insulin. Given lactic acidosis this patient should not resume metformin at dc. 6. Hx hodgkins lymphoma - in remission 7. Hypothyroidism - continue synthroid. TSH normal. DVT ppx: lovenox. DC planning: likely home tomorrow.will need OAC at DC. This patient was seen by Mu Escoto PA-C under the supervision of Doctor Pate.
--- NOTE | 2020-03-29 15:59 | PCM.CONS.C ---
Reason for Consult Date of Consultation: 03/29/20 Reason for Consultation: A fib History of Present Illness: The patient is a 54 year old M [admitted with SOB and found to be in A fib with RVR. He was on Cardizem drip overnight and converted to sinus rhythm. He did not have any chest pain. He did not know that his heart rate was high. His shortness of breath has improved significantly at this time. Review of systems: All systems reviewed. All else is negative except that in HPI] Past Medical History Allergies/Adverse Reactions: Allergies metoclopramide HCl [From Reglan] Allergy (Verified 03/28/20 20:22) Anaphylaxis Home Medications: Ambulatory Orders Medication Instructions Recorded Levothyroxine [Synthroid] 125 mcg PO DAILY 05/03/15 Pantoprazole Sodium [Protonix] 40 mg PO DAILY 05/03/15 Tamsulosin HCl [Flomax] 0.4 mg PO DAILY 09/08/15 Buspirone HCl 10 mg PO TID PRN 04/17/18 Duloxetine HCl 60 mg PO DAILY 04/17/18 Atorvastatin Calcium [Lipitor] 80 mg PO QHS #30 tab 04/19/18 Sitagliptin Phosphate [Januvia] 100 mg PO DAILY 10/15/18 metFORMIN (XR) [Glucophage Xr] 500 mg PO QHS 10/15/18 aspirin 325 mg tablet 325 mg PO DAILY 11/03/18 atenolol 100 mg tablet 100 mg PO DAILY #90 tab 01/12/19 hydrochlorothiazide 25 mg tablet 25 mg PO DAILY #90 tab 02/12/20 lisinopril 40 mg tablet 40 mg PO DAILY #90 tab 02/12/20 Insulin Glargine,Hum.rec.anlog 45 units SQ DAILY 03/28/20 [Vania Martinez] Past Medical History (Chronic Problems): Chronic Problems (Last Updated 03/28/20 @ 21:[address] Gonzalo Elizabeth MD) 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 (Chronic) Depression (Chronic) Hypothyroidism (Chronic) Essential (primary) hypertension (Chronic) Hyperlipidemia (Chronic) TIA (transient ischemic attack) (Chronic ~2019) Hodgkin disease (Chronic) chemo and radiation Surgical History: - - Cervical lymph node resection, L breast lump removal, Lithotripsy. Psychiatric History: Depression - *Family History Maternal Family History: Family History (Last Reviewed 06/26/19 @ 14:[address] Sumanth Hanna MD) Brother Heart disease History Items: - - RA in his mother Paternal Family History: Family History (Last Reviewed 06/26/19 @ 14:[address] Sumanth Hanna MD) Brother Heart disease History Items: Diabetes, - - his father of pancreatitis.....he was a non-drinker and the etiology of the pancreatitis is unknown. His father also had nephrolithiasis Sibling Family History: Family History (Last Reviewed 06/26/19 @ 14:[address] Smuanth Hanna MD) Brother Heart disease History Items: - - brother who is was an alcoholic and had heart disease Lives: Spouse/ Significant Other Smoking Status: Never smoker Alcohol: None Drugs: None Objective: Vital Signs Temp Pulse Resp BP Pulse Ox 97.9 F 69 18 100/59 L 98 03/29/20 15:40 03/29/20 15:40 03/29/20 15:40 03/29/20 15:40 03/29/20 15:40 Oxygen Flow Rate (L/min) 2 Oxygen Delivery Method Room Air Weight: 307 lb 5.19 oz Body Mass Index (BMI) 45.3 Finger Stick Blood Glucose 394 Intake and Output for Last 24 Hours 03/27/20 03/28/20 03/29/20 23:59 23:59 23:59 Intake Total 33.25 / 37.00 1841.25 / 1841.25 Output Total 325 / 325 1175 / 1175 Balance -291.75 / -288.00 666.25 / 666.25 General: Awake, Alert, Oriented x 3 HEENT: Atraumatic Oral: Moist Mucosa Neck: Supple Lungs: Clear to auscultation Cardiovascular: Regular Rhythm Abdomen: Soft Extremities: No edema Skin: No Rashes Psych/Mental Status: Appropriate 03/28/20 20:10: WBC 9.5, RBC 5.46, Hgb 13.9, Hct 43.6, MCV 79.9 L, MCH 25.5 L, MCHC 31.9 L, Plt Count 250, MPV 10.5, Immature Gran % (Auto) 0.400, Neut % (Auto) 62.9, Lymph % (Auto) 24.9, [place] % (Auto) 9.2, Eos % (Auto) 1.8, Baso % (Auto) 0.8, Absolute Neuts (auto) 6.0, Nucleated RBC % 0 03/28/20 20:10: PT 12.2, INR 1.0, APTT 24.6 03/28/20 20:10: Sodium 133 L, Potassium 4.1, Chloride 97 L, Carbon Dioxide 23.0, Anion Gap 13, BUN 32 H, Creatinine 1.71 H, Est GFR (MDRD) Af Amer 53 L, Est GFR (MDRD) Non-Af 44 L, BUN/Creatinine Ratio 18.7, Glucose 400 H, Calcium 8.9, Troponin I 0.051 H 03/28/20 20:10: Lactic Acid 3.7 H* 03/28/20 20:10: Hemoglobin A1c 10.8 H 03/28/20 23:00: Troponin I 0.127 H 03/28/20 23:55: Urine Color Yellow, Urine Clarity Clear, Urine pH 5.0, Ur Specific [place] 1.015, Urine Protein Negative, Urine Glucose (UA) 1000 H, Urine Ketones Negative, Urine Occult Blood 10 H, Urine Nitrite Negative, Urine Bilirubin Negative, Urine Urobilinogen Normal, Ur Leukocyte Esterase Negative, Urine RBC 10-25 SEEN, Urine WBC 0 SEEN 03/29/20 00:31: Lactic Acid 3.0 H* 03/29/20 02:13: WBC 8.2, RBC 4.71, Hgb 12.2 L, Hct 37.6 L, MCV 79.8 L, MCH 25.9 L, MCHC 32.4, Plt Count 158, MPV 10.4 03/29/20 02:13: Sodium 132 L, Potassium 4.0, Chloride 101, Carbon Dioxide 19.0 L, Anion Gap 12, BUN 31 H, Creatinine 1.29, Est GFR (MDRD) Af Amer 74, Est GFR (MDRD) Non-Af 61, BUN/Creatinine Ratio 24.0 H, Glucose 318 H, Calcium 7.9 L, Total Bilirubin 0.50 03/29/20 02:13: Troponin I 0.147 H Rhythm: EKG: ECHO: Stress Test: Cardiac Cath: PCI: CT Surgery: Holter monitor: EPS: PPM: CXR: Chest CT Scan: Assessment/Plan 1. A fib: Agree with switching from IV to p.o. Cardizem. We will discontinue the aspirin and start the patient on Eliquis. Risks and benefits explained to the patient. Patient is agreeable to this management.
[2020-03-29 16:50] LABS: Bedside Glucose 309 mg/dL (70-110)
[2020-03-29] MEDS: APIXABAN 5 MG TABLET PO (22:05)
[2020-03-29] MEDS: Atorvastatin Calcium 80 MG Tablet PO (22:05)
[2020-03-29 22:25] LABS: Bedside Glucose 284 mg/dL (70-110)
[2020-03-30] MEDS: dilTIAZem 60 MG Tablet PO ×2 (01:17→07:26)
[2020-03-30 03:00] VITALS: PULSE 71
[2020-03-30 03:56] VITALS: BP 121/67; PULSE 65; RESP 18; TEMP 36.6; O2SAT 97
[2020-03-30 06:44] LABS: Absolute Lymphocyte Count 1.76 X10^3/uL (0.83-4.51); Absolute Neutrophil Count 4.4 X10^3/uL (2.0-7.7); Basophil# 0.04 X10^3/uL; Basophil% 0.6 % (0-1); Eosinophil# 0.24 X10^3/uL; Eosinophils% 3.3 % (0-5); Hematocrit 35.2 % (40-54); Lymphocyte # 1.76 X10^3/ul (4.0); Lymphocyte % 24.5 % (19-41); Mean Corp Hgb Conc 31.3 g/dL (32-36); Mean Platelet Vol. 10.3 fl (6.2-12.0); Monocyte# 0.66 X10^3/uL; Monocyte% 9.2 % (0-10); NRBC Flagged by Analyzer 0 % (0-5); Neutrophil # 4.43 X10^3/uL (2.7-7.7); Neutrophil % 61.8 % (47-70); Platelet Count 189 K/mm3 (150-450); RBC Distribution Width CV 15.5 % (11.6-14.6); White Blood Count 7.2 K/mm3 (4.4-11.0)
[2020-03-30 07:00] VITALS: PULSE 70
[2020-03-30 07:03] LABS: Anion Gap 7 (5-15); BUN 23 mg/dL (7-18); BUN/Creat Ratio 24.1 RATIO (10-20); Calcium,Total 8.2 mg/dL (8.5-10.1); Chloride 104 mmol/L (98-107); Creatinine, Serum 0.95 mg/dL (0.70-1.30); EST Glomerular Filtration Rate 87 mL/min (>60); Est Glom Filt Rate - Afr Amer 105 mL/min (>60); Estimated Creatinine Clearance 86.82 ml/min; Glucose 200 mg/dL (74-106); Sodium Level 135 mmol/L (136-145)
[2020-03-30] MEDS: Levothyroxine 125 MCG Tablet PO (07:25)
[2020-03-30] MEDS: Insulin Lispro 100 UNIT/ML INSULN.PEN SC ×2 (07:26)
[2020-03-30 07:27] VITALS: O2SAT 97
--- NOTE | 2020-03-30 07:41 | PN.CARD_ITS ---
Subjectve: Patient seen and evaluated. Appears to be doing well. Objective: Vital Signs Temp Pulse Resp BP Pulse Ox 97.8 F 70 18 121/67 H 97 03/30/20 03:56 03/30/20 07:00 03/30/20 03:56 03/30/20 03:56 03/30/20 03:56 Oxygen Flow Rate (L/min) 2 Oxygen Delivery Method Room Air Weight: 307 lb 5.19 oz Body Mass Index (BMI) 45.3 Finger Stick Blood Glucose 394 Intake and Output for Last 24 Hours 03/28/20 03/29/20 03/30/20 23:59 23:59 23:59 Intake Total 33.25 / 37.00 1841.25 / 1841.25 Output Total 325 / 325 1625 / 1625 Balance -291.75 / -288.00 216.25 / 216.25 General: Awake, Alert, Oriented x 3 HEENT: PERRL, EOMI, Sclera Non Icteric Neck: Supple, Good ROM, No Lymph Node Enlargement Lungs: Clear to auscultation Cardiovascular: Regular Rhythm, Normal S1, Normal S2, No Murmurs, No Rubs, No Gallops 03/30/20 06:00: WBC 7.2, RBC 4.40 L, Hgb 11.0 L, Hct 35.2 L, MCV 80.0, MCH 25.0 L, MCHC 31.3 L, Plt Count 189, MPV 10.3, Immature Gran % (Auto) 0.600, Neut % ( Auto) 61.8, Lymph % (Auto) 24.5, [place] % (Auto) 9.2, Eos % (Auto) 3.3, Baso % (Auto) 0.6, Absolute Neuts (auto) 4.4, Nucleated RBC % 0 03/30/20 06:00: Sodium 135 L, Potassium 4.0, Chloride 104, Carbon Dioxide 24.0, Anion Gap 7, BUN 23 H, Creatinine 0.95, Est GFR (MDRD) Af Amer 105, Est GFR (MDRD) Non-Af 87, BUN/Creatinine Ratio 24.1 H, Glucose 200 H, Calcium 8.2 L Rhythm: EKG: ECHO: Stress Test: Cardiac Cath: PCI: CT Surgery: Holter monitor: EPS: PPM: CXR: Chest CT Scan: Medical Necessity - Tobacco Use Smoking Status: Never smoker Assessment/Plan 1. Paroxysmal atrial fibrillation * Patient came in with an episode of paroxysmal atrial fibrillation. Had previously undergone a stress echocardiogram in January of this year where he exercised to 5 minutes and 15 seconds without any evidence of ischemia. His ejection fraction was preserved at rest and also with exercise. It is likely that this is paroxysmal and related to obstructive sleep apnea. * Will continue beta-renuka with the atenolol * Agree with Eliquis at the stated dose * Patient can be discharged for outpatient follow-up * He can also continue his baby aspirin due to his previous history of TIA 2. Hypertension * Patient's blood pressure appears to be under good control at this time and I would not recommend we make any changes. * * Thank you for allowing me to participate in the care of your patient. Please don't hesitate to call if any issues arise.
[2020-03-30 08:06] LABS: Bedside Glucose 240 mg/dL (70-110)
[2020-03-30 08:48] VITALS: BP 123/54; PULSE 75; RESP 16; TEMP 36.4; O2SAT 97
--- NOTE | 2020-03-30 08:50 | PCM.DC ---
- Discharge Diagnoses Current Active Problems: Current Active and Chronic Problems (Last Updated 03/28/20 @ 21:[address] Gonzalo Elizabeth MD) 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 (Chronic) Depression (Chronic) Hypothyroidism (Chronic) Acute kidney injury (Acute) Atrial fibrillation with RVR (Acute) Lactic acidosis (Acute) Hyperglycemia due to type 2 diabetes mellitus (Acute) Essential (primary) hypertension (Chronic) Hyperlipidemia (Chronic) TIA (transient ischemic attack) (Chronic ~2019) Hodgkin disease (Chronic) chemo and radiation You will use the following diet at home:: Calorie/Carbohydrate Controlled (specify 1200, 1400, etc) - 1800 kourtney Your food should be the consistency of: Regular Your liquids should be the consistency of: Regular/Thin Discharge Activity: Return to Normal Activity Weight Bearing Status: Full weight bearing Additional Instructions: Do not take ibuprofen, Aleve, or aspirin (more than 81 mg/day) while on Eliquis Allergies/Adverse Reactions: Allergies metoclopramide HCl [From Reglan] Allergy (Verified 03/28/20 20:22) Anaphylaxis Medications to take at Discharge Levothyroxine [Synthroid] 125 mcg PO DAILY 05/03/15 Pantoprazole Sodium [Protonix] 40 mg PO DAILY 05/03/15 Tamsulosin HCl [Flomax] 0.4 mg PO DAILY 09/08/15 Buspirone HCl 10 mg PO TID PRN 04/17/18 Duloxetine HCl 60 mg PO DAILY 04/17/18 Atorvastatin Calcium [Lipitor] 80 mg PO QHS #30 tab 04/19/18 Sitagliptin Phosphate [Januvia] 100 mg PO DAILY 10/15/18 metFORMIN (XR) [Glucophage Xr] 500 mg PO QHS 10/15/18 atenolol 100 mg tablet 100 mg PO DAILY #90 tab 01/12/19 hydrochlorothiazide 25 mg tablet 25 mg PO DAILY #90 tab 02/12/20 lisinopril 40 mg tablet 40 mg PO DAILY #90 tab 02/12/20 Insulin Glargine,Hum.rec.anlog [Tochristelle Solostmarco a] 45 units SQ DAILY 03/28/20 Apixaban [Eliquis] 5 mg PO BID #60 tab 03/30/20 Aspirin [Aspirin, Baby] 81 mg PO DAILY@0800 tab.chew 03/30/20 The following prescriptions were given: Apixaban [Eliquis] 5 mg PO BID #60 tab Transmission Status: Pending to [facility] Primary Care Physician: Radha Khan MD [Primary Care Provider] - Please follow up with your Primary Care Physician in: as scheduled Test Results: Test results from this visit will be discussed in further detail at your follow-up appointment, if applicable. Please Follow Up With: Sumanth Hanna MD When: in 3-4 weeks
[2020-03-30] MEDS: DULoxetine Hcl 60 MG Capsule PO (08:52)
[2020-03-30] MEDS: Lisinopril 40 MG Tablet PO (08:53)
[2020-03-30] MEDS: Pantoprazole Sodium 40 MG Tablet PO (08:53)
[2020-03-30] MEDS: LINAGLIPTIN 5 MG TABLET PO (08:53)
[2020-03-30] MEDS: Atenolol 100 MG Tablet PO (08:55)
[2020-03-30] MEDS: Tamsulosin HCl 0.4 MG Capsule PO (08:55)
[2020-03-30] MEDS: APIXABAN 5 MG TABLET PO (08:56)
[2020-03-30] MEDS: Aspirin 81 MG TAB.CHEW PO (08:56)
--- NOTE | 2020-03-30 10:23 | PHA.DC.MC ---
Pharmacy Service has performed discharge medication reconciliation and counseling for this patient. 1. APIXABAN 5MG PO BID The patient's discharge medication list was reviewed for discrepancies and discrepancies were resolved. Home Medications Levothyroxine [Synthroid] 125 mcg PO DAILY 05/03/15 Pantoprazole Sodium [Protonix] 40 mg PO DAILY 05/03/15 Tamsulosin HCl [Flomax] 0.4 mg PO DAILY 09/08/15 Buspirone HCl 10 mg PO TID PRN 04/17/18 Duloxetine HCl 60 mg PO DAILY 04/17/18 Atorvastatin Calcium [Lipitor] 80 mg PO QHS #30 tab 04/19/18 Sitagliptin Phosphate [Januvia] 100 mg PO DAILY 10/15/18 metFORMIN (XR) [Glucophage Xr] 500 mg PO QHS 10/15/18 atenolol 100 mg tablet 100 mg PO DAILY #90 tab 01/12/19 hydrochlorothiazide 25 mg tablet 25 mg PO DAILY #90 tab 02/12/20 lisinopril 40 mg tablet 40 mg PO DAILY #90 tab 02/12/20 Insulin Glargine,Hum.rec.anlog [[place]jeo Solostar] 45 units SQ DAILY 03/28/20 Apixaban [Eliquis] 5 mg PO BID #60 tab 03/30/20 Aspirin [Aspirin, Baby] 81 mg PO DAILY@0800 tab.chew 03/30/20 The patient was counseled on the following discharge medications and changes in medications for homegoing were reviewed. The Reason for Use, instructions for use, and potential side effects were reviewed for all new medications. The patient's questions regarding all of their medications were answered. The patient was able to verbally demonstrate an understanding of their discharge medications.
--- NOTE | 2020-03-30 14:37 | PCM.DC.SUM ---
Discharge Date and Diagnosis - Problem List Patient Problems: Active and Suspected Problems (Last Updated 03/28/20 @ 21:[address] Gonzalo Elizabeth MD) Acute kidney injury (Acute) Atrial fibrillation with RVR (Acute) Lactic acidosis (Acute) Hyperglycemia due to type 2 diabetes mellitus (Acute) Date of Admission: 03/28/20 Date of Discharge: 03/30/20 - Primary Discharge Diagnosis Acute Problems: Active Problems (Last Updated 03/28/20 @ 21:[address] Gonzalo Elizabeth MD) Afib RVR SUPA Lactic acidosis Hyperglycemia, DMt2 uncontrolled - Secondary Discharge Diagnosis Chronic Problems: Chronic Problems (Last Updated 03/28/20 @ 21:[address] Gonzalo Elizabeth MD) 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 (Chronic) Depression (Chronic) Hypothyroidism (Chronic) Essential (primary) hypertension (Chronic) Hyperlipidemia (Chronic) TIA (transient ischemic attack) (Chronic ~2019) Hodgkin disease (Chronic) chemo and radiation Hospital Course and Treatment Imaging Results: RAD/Chest 1 View (Portable) IMPRESSION: No definite acute or significant abnormality seen. Consults: Cardiology - Jacques Boyd Operations: None Procedures: None Summary of Care Provided: Hospital Course: The patient is a 54 year old M with pmhx of DMt2 with morbid obesity, HLD, TIA, Hodgkins lymphoma, HTN who presented to the ER with c/o SOB with palpitations, and dizziness. He was found to have Afib RVR, indeterminate troponin felt to be due to demand ischemia, elevated glucose, and lactic acidosis.He was given cardizem bolus followed by drip. Atenolol was continued. He was started on therapeutic lovenox. He was admitted to the PCU. He was transitioned from cardizem drip to PO cardizem. He was transitioned from lovenox to eliquis. Cardiology felt that he could be discharged on atenolol only without cardizem. He was discharged home in stable condition. He will follow up with cardiology in 3-4 weeks, and his PCP 1-2 weeks. Echo was deferred as he had a stress echo 01/2020 that showed preserved EF 55% and no ischemia. This patient was seen by Mu Escoto PA-C under the supervision of Dr. Pate. [] Patient Problems: Active and Suspected Problems (Last Updated 03/28/20 @ 21:[address] Gonzalo Elizabeth MD) Acute kidney injury (Acute) Atrial fibrillation with RVR (Acute) Lactic acidosis (Acute) Hyperglycemia due to type 2 diabetes mellitus (Acute) - Physical Exam Vitals/I&O's: Vital Signs Temp Pulse Resp BP Pulse Ox 97.6 F L 75 16 123/54 H 97 03/30/20 08:48 03/30/20 08:48 03/30/20 08:48 03/30/20 08:48 03/30/20 08:48 Oxygen Flow Rate (L/min) 2 Oxygen Delivery Method Room Air Weight: 307 lb 5.19 oz Body Mass Index (BMI) 45.3 Finger Stick Blood Glucose 394 Intake and Output for Last 24 Hours 03/28/20 03/29/20 03/30/20 23:59 23:59 23:59 Intake Total 33.25 / 37.00 1841.25 / 1841.25 Output Total 325 / 325 1625 / 1625 Balance -291.75 / -288.00 216.25 / 216.25 General: Alert, Oriented x3, Cooperative HEENT: Atraumatic, PERRLA, EOMI, Normocephalic Neck: Supple, No JVD, Negative Carotid Bruits Lungs: Clear to auscultation, Normal air movement Cardiovascular: Regular rate, No murmurs Abdomen: Bowel Sounds Present, Soft, Non Tender Extremities: No edema, Capillary Refill Less than 3 Seconds Skin: No rashes, No breakdown Musculoskeletal: No Tenderness to Palpation of Joints or Extremities Neurological: Cranial nerves II-XII grossly intact Psych/Mental Status: Normal Affect, Appropriate, Alert and oriented to time, place, person, mood and affect Microbiology Past 72 Hours 03/28/20 23:55 Urine, Clean Catch Urine Culture - Final Beta streptococcus 03/28/20 21:13 Mucosa - Nose SARS-CoV-2 Antigen (Rapid) - Final Laboratory Results 03/29/20 16:41: POC Glucose 309 H 03/29/20 21:46: POC Glucose 284 H 03/30/20 06:00: WBC 7.2, RBC 4.40 L, Hgb 11.0 L, Hct 35.2 L, MCV 80.0, MCH 25.0 L, MCHC 31.3 L, RDW Std Deviation 45.0 H, RDW Coeff of Gavi 15.5 H, Plt Count 189, MPV 10.3, Immature Gran % (Auto) 0.600, Neut % (Auto) 61.8, Lymph % (Auto) 24.5, [place] % (Auto) 9.2, Eos % (Auto) 3.3, Baso % (Auto) 0.6, Absolute Neuts (auto) 4.4, Absolute Lymphs (auto) 1.76, Nucleated RBC % 0 03/30/20 06:00: Sodium 135 L, Potassium 4.0, Chloride 104, Carbon Dioxide 24.0, Anion Gap 7, BUN 23 H, Creatinine 0.95, Estim Creat Clear Calc 86.82, Est GFR (MDRD) Af Amer 105, Est GFR (MDRD) Non-Af 87, BUN/Creatinine Ratio 24.1 H, Glucose 200 H, Calcium 8.2 L 03/30/20 07:23: POC Glucose 240 H Discharge Diet: Low fat/ Low Cholesterol, 2000 mg Sodium Diet Discharge Activity: Return to Normal Activity Weight Bearing Status: Full weight bearing Home Medications: Medications to take at Discharge Levothyroxine [Synthroid] 125 mcg PO DAILY 05/03/15 Pantoprazole Sodium [Protonix] 40 mg PO DAILY 05/03/15 Tamsulosin HCl [Flomax] 0.4 mg PO DAILY 09/08/15 Buspirone HCl 10 mg PO TID PRN 04/17/18 Duloxetine HCl 60 mg PO DAILY 04/17/18 Atorvastatin Calcium [Lipitor] 80 mg PO QHS #30 tab 04/19/18 Sitagliptin Phosphate [Januvia] 100 mg PO DAILY 10/15/18 metFORMIN (XR) [Glucophage Xr] 500 mg PO QHS 10/15/18 atenolol 100 mg tablet 100 mg PO DAILY #90 tab 01/12/19 hydrochlorothiazide 25 mg tablet 25 mg PO DAILY #90 tab 02/12/20 lisinopril 40 mg tablet 40 mg PO DAILY #90 tab 02/12/20 Insulin Glargine,Hum.rec.anlog [Toujeo Solostar] 45 units SQ DAILY 03/28/20 Apixaban [Eliquis] 5 mg PO BID #60 tab 03/30/20 Aspirin [Aspirin, Baby] 81 mg PO DAILY@0800 tab.chew 03/30/20 Following Prescriptions Were Given to Patient: Apixaban [Eliquis] 5 mg PO BID #60 tab Transmission Status: Received by [facility] Primary Care Physician: Radha Khan MD [Primary Care Provider] - Please follow up with your Primary Care Physician in: as scheduled Please Follow Up With: Sumanth Hanna MD When: in 3-4 weeks Disposition: Home Minutes spent on discharge:: 35 Patient Condition:: Stable Medical Necessity - Tobacco Use Smoking Status: Never smoker Meaningful Use Info Meaningful Use Diagnoses (Choose all that apply): None applicable
--- NOTE | 2020-03-31 16:05 | CASEMGMT ---
RN CM NOTE DC DATE: 03-31-2020 DC DISPOSITION: HOME DC DIAGNOSIS:ACUTE KIDNEY INJURY Intro role of CM to patient via phone. Patient states he is doing well. He did question not being on cardizem on dc. RN JAZMINE reviewed Dr. Hanna's note re: Atenelol and recommended pt call Dr. Hanna if he needs further information on medication. No further concerns and pt stated he had excellent care @ [facility]. Giacomo DONNELLYN RN ACM
== END 2020-03-30 10:43 | disposition home or self-care (01) | DRG 309 ==
LOC: ED 21:04 → PCU 21:57
PROVIDERS: Physician Assistant; Admitting Provider Hospitalist; Emergency Provider Emergency Medicine; PCP Family Medicine; Visit Provider Internal Medicine
DX: I48.0 Paroxysmal atrial fibrillation (principal); N17.9 Acute kidney failure, unspecified; E87.2 Acidosis; Z68.42 Body mass index [BMI] 45.0-49.9, adult; E87.1 Hypo-osmolality and hyponatremia; C81.90 Hodgkin lymphoma, unspecified, unspecified site; E11.65 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 mellitus with hyperglycemia; I10 Essential (primary) hypertension; Z79.84 Long term (current) use of oral hypoglycemic drugs; Z79.899 Other long term (current) drug therapy; E86.0 Dehydration; E03.9 Hypothyroidism, unspecified; E78.5 Hyperlipidemia, unspecified; Z92.21 Personal history of antineoplastic chemotherapy; Z92.3 Personal history of irradiation; E66.01 Morbid (severe) obesity due to excess calories
CPT/HCPCS: 36415; 71045; 80048; 80053; 81001; 82962; 83036; 83605; 84443; 84484; 85025; 85027; 85610; 85730; 87040; 87086; 87088; 87426; 93005; 99251; 99285; J7030; A4216; G0463

== ENCOUNTER → 2020-05-17 15:59 | Outpatient (CLI) | payer OTHER, SELFPAY ==
[2020-04-07 12:26] VITALS: BMI 45.1
[2020-05-17 17:27] LABS: Absolute Lymphocyte Count 1.96 X10^3/uL (0.83-4.51); Absolute Neutrophil Count 4.3 X10^3/uL (2.0-7.7); Basophil# 0.05 X10^3/uL; Basophil% 0.7 % (0-1); Eosinophil# 0.18 X10^3/uL; Eosinophils% 2.5 % (0-5); Hematocrit 39.8 % (40-54); Hemoglobin 12.7 g/dL (13.0-16.5); Lymphocyte # 1.96 X10^3/ul (4.0); Lymphocyte % 26.9 % (19-41); Mean Corp Hgb Conc 31.9 g/dL (32-36); Mean Corpuscular Hgb 25.2 pg (27.0-32.0); Mean Platelet Vol. 10.2 fl (6.2-12.0); Monocyte# 0.79 X10^3/uL; Monocyte% 10.8 % (0-10); NRBC Flagged by Analyzer 0 % (0-5); Neutrophil # 4.29 X10^3/uL (2.7-7.7); Neutrophil % 58.8 % (47-70); Platelet Count 234 K/mm3 (150-450); RBC Distribution Width CV 15.5 % (11.6-14.6); RBC Distribution Width SD 44.1 fl (35.1-43.9); Red Blood Count 5.04 M/mm3 (4.6-6.2); White Blood Count 7.3 K/mm3 (4.4-11.0)
[2020-05-17 17:55] LABS: BNP,B-Type NATRIURETIC PEPTIDE 9.3 pg/mL (0-100)
== END ==
PROVIDERS: PCP Family Medicine; Referring Provider Family Medicine; Visit Provider Family Medicine
DX: R06.02 Shortness of breath (principal)
CPT/HCPCS: 36415; 83880; 85025

== ENCOUNTER → 2020-10-05 16:36 | Outpatient (CLI) | payer OTHER, SELFPAY ==
[2020-07-29 08:14] VITALS: BMI 45.6
[2020-10-05 17:40] LABS: Absolute Lymphocyte Count 2.05 X10^3/uL (0.83-4.51); Absolute Neutrophil Count 4.8 X10^3/uL (2.0-7.7); Basophil# 0.07 X10^3/uL; Basophil% 0.9 % (0-1); Eosinophil# 0.17 X10^3/uL; Eosinophils% 2.2 % (0-5); Hematocrit 38.3 % (40-54); Lymphocyte # 2.05 X10^3/ul (0.83-4.51); Lymphocyte % 26.1 % (19-41); Mean Corp Hgb Conc 31.3 g/dL (32-36); Mean Corpuscular Hgb 24.9 pg (27.0-32.0); Mean Corpuscular Volume 79.5 fL (80-94); Monocyte# 0.73 X10^3/uL; Monocyte% 9.3 % (0-10); NRBC Flagged by Analyzer 0 % (0-5); Neutrophil # 4.82 X10^3/uL (2.7-7.7); Neutrophil % 61.2 % (47-70); Platelet Count 254 K/mm3 (150-450); RBC Distribution Width CV 15.9 % (11.6-14.6); RBC Distribution Width SD 45.1 fl (35.1-43.9); Red Blood Count 4.82 M/mm3 (4.6-6.2); White Blood Count 7.9 K/mm3 (4.4-11.0)
[2020-10-05 18:03] LABS: Microalbumin:Creatinine Ratio 92.4 mg/g CRE (<30 mg/g CRE)
[2020-10-05 18:20] LABS: Anion Gap 9 (5-15); BUN 21 mg/dL (7-18); BUN/Creat Ratio 20.6 RATIO (10-20); Calcium,Total 9.2 mg/dL (8.5-10.1); Chloride 100 mmol/L (98-107); Creatinine, Serum 1.02 mg/dL (0.70-1.30); EST Glomerular Filtration Rate 80 mL/min (>60); Est Glom Filt Rate - Afr Amer 97 mL/min (>60); Glucose 98 mg/dL (74-106); Sodium Level 135 mmol/L (136-145); T4 Free Direct 1.22 ng/dL (0.76-1.46)
[2020-10-06 14:19] LABS: T4 Total, Thyroxin 11.6 ug/dL (4.5-12.1)
== END ==
LOC: MFPLAB 16:37
PROVIDERS: PCP Family Medicine; Visit Provider Family Medicine
DX: E03.9 Hypothyroidism, unspecified (principal); D64.9 Anemia, unspecified; E11.59 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 with other circulatory complications
CPT/HCPCS: 36415; 80048; 82043; 82570; 84436; 84439; 84443; 85025

== ENCOUNTER → 2020-10-13 15:16 | Outpatient (CLI) | payer OTHER, SELFPAY ==
[2020-07-29 08:14] VITALS: BMI 45.6
--- NOTE | 2020-10-13 16:33 | RAD_ITS ---
INDICATION: SOB -- Right lung crackle EXAMINATION/TECHNIQUE: X-RAY - XR Chest 2 Views COMPARISON: 03/28/2020. FINDINGS: Mild central pulmonary venous congestion. Tortuous and calcified thoracic aorta. The heart is borderline enlarged. No pleural effusion or pneumothorax. No acute osseous abnormalities. RAD/Chest PA and Lateral IMPRESSION: Borderline cardiomegaly with mild central pulmonary venous congestion. Electronically Signed: Mayank Johnston MD at 23:46 EDT Tel , Service support ,
== END ==
PROVIDERS: PCP Family Medicine; Referring Provider Nurse Practitioner Adult Health; Visit Provider Nurse Practitioner Adult Health
DX: E78.5 Hyperlipidemia, unspecified (principal); R06.02 Shortness of breath; I10 Essential (primary) hypertension; I48.0 Paroxysmal atrial fibrillation; Z12.5 Encounter for screening for malignant neoplasm of prostate
CPT/HCPCS: 36415; 71046; 84153; G0103

== ENCOUNTER → 2020-10-14 13:14 | Outpatient (CLI) | payer OTHER, SELFPAY ==
[2020-10-13 15:48] VITALS: BMI 45.2
== END ==
PROVIDERS: PCP Family Medicine; Referring Provider Nurse Practitioner Family; Visit Provider Nurse Practitioner Family
DX: I48.0 Paroxysmal atrial fibrillation (principal); I10 Essential (primary) hypertension; E78.5 Hyperlipidemia, unspecified
CPT/HCPCS: 93225; 93226

== ENCOUNTER → 2021-02-06 | Outpatient (CLI) | payer OTHER, SELFPAY | END | disposition home or self-care (01) | PROVIDERS: PCP Family Medicine; Visit Provider Registered Nurse | DX: J06.9 Acute upper respiratory infection, unspecified (principal) | CPT/HCPCS: 87633; 87635; U0005; U0003 ==

== ENCOUNTER 2021-02-08 12:40 | Emergency (ER) | payer OTHER, SELFPAY ==
[2021-02-08 12:40] VITALS: BP 116/63; PULSE 80; RESP 18; TEMP 36.4; O2SAT 100; BMI 45.1
--- NOTE | 2021-02-08 12:52 | EKG12_ITS ---
Test Reason : SOB Blood Pressure : / mmHG Vent. Rate : 079 BPM Atrial Rate : 079 BPM P-R Int : 160 ms QRS Dur : 110 ms QT Int : 404 ms P-R-T Axes : 008 -15 044 degrees QTc Int : 463 ms Normal sinus rhythm Voltage criteria for left ventricular hypertrophy Inferior infarct , age undetermined, cannot be excluded Abnormal ECG Confirmed by RICHIE MCRAE, ALESSIA ([id number]), city editor BETHEL ROONEY ([id number]) on 02/09/2021 11:34:22 AM Referred By: JOSÉ ANTONIO Confirmed By:ALESSIA QUIROZ MD
--- NOTE | 2021-02-08 12:52 | RAD_ITS ---
STUDY: X-RAY CHEST REASON FOR EXAM: Male, 55 years old. Dyspnea TECHNIQUE: Single AP portable view of the chest. COMPARISON: Comparison is made with prior study of 10/13/2020. FINDINGS: Stable mild increased interstitial markings suggestive of scarring. No acute abnormality is seen. There is no demonstrated pleural abnormality. Normal size heart. Normal mediastinum and darrel. Normal visualized pulmonary arteries. There is atherosclerotic calcification of the aortic arch with tortuosity. There are diffuse degenerative changes of the visualized thoracic spine. Normal visualized ribs, clavicles, and shoulders. There is no demonstrated abnormality of the visualized soft tissue structures of the upper abdomen. RAD/Chest 1 View (Portable) IMPRESSION: No acute abnormality is seen. Electronically Signed: Chicho Monsalve MD at 13:10 EST , Service support ,
--- NOTE | 2021-02-08 12:52 | EX.ED.DYSGE1 ---
HPI History of Present Illness Chief Complaint: Dizziness Informant: patient and spouse/S.O. Narrative Narrative: 55-year-old male states that over the weekend he began to experience fatigue. He had a Covid test that was negative. This fatigue seems to have exaggerated some of his chronic symptoms that he has been working through. These would include shortness of breath. He also includes episodes of dizziness where he feels that the room is spinning and then he breaks out in a sweat and gets nauseous. Today's episode while he was in his office seem to be the worst. He has been trying to get into see a neurologist when he called his primary care doctor's office today they suggested he come to emergency. [facility] Medical History Acute kidney injury Anxiety and depression Atrial fibrillation with RVR (03/28/20) BPH (benign prostatic hyperplasia) Depression Diabetes Diabetes mellitus, type II Essential (primary) hypertension GERD (gastroesophageal reflux disease) History of non-ST elevation myocardial infarction (NSTEMI) (03/28/20) Hodgkin disease Hyperlipidemia Hypothyroidism Lactic acidosis Morbid obesity with BMI of 45.0-49.9, adult Nephrolithiasis Obesity KIANNA (obstructive sleep apnea) Polyneuropathy due to type 2 diabetes mellitus TIA (transient ischemic attack) (2019) Home Medications levothyroxine 125 mcg PO DAILY 05/03/15 [History Last Taken 03/28/20 06:00] pantoprazole 40 mg PO DAILY 05/03/15 [History Last Taken 03/28/20 08:00] tamsulosin 0.4 mg PO DAILY 09/08/15 [History Last Taken 03/28/20 08:00] buspirone 10 mg PO TID PRN 04/17/18 [History Last Taken 03/28/20 08:00] duloxetine 60 mg PO DAILY 04/17/18 [History Last Taken 03/28/20 08:00] atorvastatin 80 mg PO QHS #30 tab 04/19/18 [Rx Last Taken 03/28/20 08:00] hydrochlorothiazide 25 mg tablet 25 mg PO DAILY #90 tab 02/12/20 [Rx Last Taken 03/28/20 08:00] lisinopril 40 mg tablet 40 mg PO DAILY #90 tab 02/12/20 [Rx Last Taken 03/28/20 08:00] aspirin 81 mg PO DAILY@0800 tab.chew 03/30/20 [Rx Last Taken Unknown] apixaban 5 mg tablet 5 mg PO BID #60 tab 04/07/20 [Rx Last Taken Unknown] 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 meter,continuous #1 ea 07/26/20 [Rx Last Taken Unknown] 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 transmitter #1 ea 07/26/20 [Rx Last Taken Unknown] metformin 500 mg tablet,extended release 24 hr 1,000 mg PO QHS tab 10/13/20 [History Last Taken Unknown] metoprolol succinate 100 mg tablet,extended release 24 hr 100 mg PO DAILY #90 tab 10/19/20 [Rx Last Taken Unknown] albuterol sulfate 90 mcg/actuation aerosol inhaler gm INHALATION 12/22/20 [History Last Taken Unknown] insulin glargine U-300 conc 300 unit/mL (1.5 mL) subcutaneous pen 55 unit SC DAILY #33 ml 12/22/20 [Rx Last Taken Unknown] pen needle, diabetic 31 gauge x 5/16 #1200 ea 12/22/20 [History Last Taken Unknown] Trulicity 3 mg/0.5 mL subcutaneous pen injector 3 mg SUBCUT QWEEK #2 ml NS 02/02/21 [Rx Last Taken Unknown] 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 sensor #3 ea 02/02/21 [Rx Last Taken Unknown] glimepiride 4 mg tablet 4 mg PO BID #180 tab 02/02/21 [Rx Last Taken Unknown] Allergy/AdvReac Type Severity Reaction Status Date / Time metoclopramide HCl Allergy Anaphylaxis Verified 02/08/21 12:41 [From Reglan] Family History Brother Heart disease Other Alcohol abuse Arthritis CVA (cerebral vascular accident) Diabetes ulcer disease Surgical History History of left heart catheterization (2009) History of thoracentesis (2015) Hx of nephrolithotomy with removal of calculi Social History Smoking Status: Never smoker alcohol intake: never substance use type: does not use what type of physical activity do you participate in: none ROS ROS ED ROS Narrative Generalized fatigue and dizziness Constitutional Constitutional ED: Denies chills, fever(s) or weight loss Eyes Eyes: Denies change in vision or diplopia ENT ENT ED: Denies ear pain, rhinorrhea or sore throat Cardiovascular Cardiovascular: Denies chest pain, orthopnea, palpitations or racing heartbeat Respiratory/Chest Respiratory/Chest: Reports dyspnea; Denies cough or orthopnea Gastrointestinal Gastrointestinal: Reports nausea; Denies abdominal pain, diarrhea or vomiting Genitourinary Genitourinary ED: Denies dysuria, hematuria or urinary frequency Musculoskeletal Musculoskeletal: Denies arthralgias or myalgias Integumentary Denies abscess or rash Neurologic Neurologic: Denies headache(s) or weakness Psychiatric Psychiatric: Denies anxiety, depression, suicidal ideation or suicidal thoughts Endocrine Endocrinology: Denies polydipsia, polyphagia or polyuria Allergic/Immunologic Allergic/Immunologic ED: Denies mouth swelling, tongue swelling or urticaria EXAM Physical Exam Const Vital Signs: 02/08/21 12:40 02/08/21 13:06 02/08/21 13:49 Temperature 97.6 F L 97.6 F L Temperature Source Temporal Temporal Pulse Rate 80 80 Respiratory Rate 18 24 H Respiratory Effort Short of Breath Respiratory Pattern Normal Blood Pressure 116/63 106/65 Blood Pressure Mean 80 78 Pulse Ox 100 100 Oxygen Delivery Method Room Air Room Air 02/08/21 14:00 Temperature 97.7 F L Temperature Source Oral Pulse Rate 76 Respiratory Rate 21 H Respiratory Effort Respiratory Pattern Blood Pressure 129/73 H Blood Pressure Mean 91 Pulse Ox 100 Oxygen Delivery Method Room Air Positive well nourished, well developed and obese General Appearance ED: well developed Nutritional Appearance: obese HEENT Reports normocephalic, head/scalp atraumatic, TM's clear and moist mucous membranes Negative for trauma Tympanic Membrane ED: Yes TM's clear Eyes PERRL and EOMs intact bilaterally Neck no lymphadenopathy, supple and no JVD Resp normal respiratory effort and clear to auscultation bilaterally Cardio regular rate, regular rhythm and no murmurs GI normal to inspection, nondistended, normoactive bowel sounds and non-tender Palpation: soft Back/Spine no CVA tenderness and normal ROM Extremity normal to inspection General Extremety ED: Negative for edema General Extremity: Negative for edema Neuro oriented x3 and CN's II-XII intact bilaterally Sensorium / Orientation: alert Motor Exam: strength 5/5 throughout Psych mental status grossly normal Mood & Affect: Negative for depressed or tearful Skin no rashes or lesions noted and no wounds MDM MDM MDM Narrative Medical decision making narrative: My trepidation of the chest x-ray is no acute process. Basic labs including CBC CMP and troponin were essentially negative except for creatinine 1.54 glucose 245. Patient seems to have vertiginous episodes but they are fairly short-lived. I do not know why he is suddenly fatigued over the weekend. His Covid is negative. Lab Data Attestation: I reviewed the patient's lab results. Labs: Laboratory Results - last 24 hr 02/08/21 02/08/21 13:15 13:15 WBC 9.4 RBC 4.55 L Hgb 11.3 L Hct 35.9 L MCV 78.9 L MCH 24.8 L MCHC 31.5 L RDW Std Deviation 43.5 RDW Coeff of Gavi 15.2 H Plt Count 252 MPV 9.8 Immature Gran % (Auto) 0.300 Neut % (Auto) 68.3 Lymph % (Auto) 20.5 Miller % (Auto) 8.6 Eos % (Auto) 1.4 Baso % (Auto) 0.9 Absolute Neuts (auto) 6.4 Absolute Lymphs (auto) 1.93 Nucleated RBC % 0 Sodium 133 L Potassium 4.2 Chloride 98 Carbon Dioxide 24.0 Anion Gap 11 BUN 34 H Creatinine 1.54 H Estim Creat Clear Calc 52.92 Est GFR (MDRD) Af Amer 60 Est GFR (MDRD) Non-Af 50 L BUN/Creatinine Ratio 22.1 H Glucose 245 H Calcium 9.1 Total Bilirubin 0.70 AST 13 L ALT 20 Alkaline Phosphatase 101 Troponin I High Sens 9 Total Protein 8.2 Albumin 3.0 L Globulin 5.2 H Albumin/Globulin Ratio 0.6 L Radiography Diagnostic Testing: Clinical Impression(s) from Imaging Studies Chest X-Ray 02/08/21 12:52 IMPRESSION: No acute abnormality is seen. Electronically Signed: Chicho Monsalve MD at 13:10 EST , Service support , EKG Initial EKG: Attestation: I personally reviewed and interpreted this EKG as follows: Comments: Normal sinus rhythm with a ventricular rate of 79 bpm Discharge Plan Triage Chief Complaint: Dizziness ED Provider: Cristhian Garcia Dx/Rx/DC Orders Clinical Impression: Dizziness, Fatigue Instructions: ED Vertigo, Unspecified Prescriptions: No Action apixaban 5 mg tablet 5 mg PO BID Qty: 60 RF: 11 (DME) Dexcom G6 Clay Burner Misc See Rx Instructions .ROUTE .MEDSUPPLY Qty: 1 RF: 0 (DME) Dexcom G6 Transmitter Device See Rx Instructions .ROUTE .MEDSUPPLY Qty: 1 RF: 3 albuterol sulfate 90 mcg/actuation HFA aerosol inhaler inhalation RF: 0 (DME) pen needle, diabetic 31 gauge x 5/16 needle See Rx Instructions ea .ROUTE .MEDSUPPLY Qty: 1200 RF: 0 insulin glargine U-300 conc 300 unit/mL (1.5 mL) insulin pen 55 unit SC DAILY Qty: 33 RF: 5 (DME) Dexcom G6 Sensor Device See Rx Instructions .ROUTE .MEDSUPPLY Qty: 3 RF: 6 Trulicity 3 mg/0.5 mL pen injector 3 mg subcut QWEEK Qty: 2 RF: 3 glimepiride 4 mg tablet 4 mg PO BID Qty: 180 RF: 3 pantoprazole 40 MG tablet 40 mg PO DAILY RF: 0 levothyroxine 125 MCG tablet 125 mcg PO DAILY RF: 0 tamsulosin 0.4 MG capsule 0.4 mg PO DAILY RF: 0 buspirone 10 MG tablet 10 mg PO TID PRN RF: 0 duloxetine 60 MG capsule,delayed release(DR/EC) 60 mg PO DAILY RF: 0 atorvastatin 80 MG tablet 80 mg PO QHS Qty: 30 RF: 0 metformin 500 mg tablet extended release 24 hr 1,000 mg PO QHS RF: 0 aspirin 81 MG tablet,chewable 81 mg PO DAILY@0800 RF: 0 hydrochlorothiazide 25 mg tablet 25 mg PO DAILY Qty: 90 RF: 3 lisinopril 40 mg tablet 40 mg PO DAILY Qty: 90 RF: 3 metoprolol succinate 100 mg tablet extended release 24 hr 100 mg PO DAILY Qty: 90 RF: 3 Primary Care Provider: Radha Khan Referrals: Radha Khan MD [Primary Care Provider] - Keep [facility] appointment Disposition Disposition: Home, Self Care
[2021-02-08 13:06] VITALS: BP 106/65; PULSE 80; RESP 24; TEMP 36.4; O2SAT 100
[2021-02-08 13:23] LABS: Absolute Lymphocyte Count 1.93 X10^3/uL (0.83-4.51); Absolute Neutrophil Count 6.4 X10^3/uL (2.0-7.7); Basophil# 0.08 X10^3/uL; Basophil% 0.9 % (0-1); Eosinophil# 0.13 X10^3/uL; Eosinophils% 1.4 % (0-5); Hematocrit 35.9 % (40-54); Hemoglobin 11.3 g/dL (13.0-16.5); Lymphocyte # 1.93 X10^3/ul (0.83-4.51); Lymphocyte % 20.5 % (19-41); Mean Corp Hgb Conc 31.5 g/dL (32-36); Mean Corpuscular Hgb 24.8 pg (27.0-32.0); Mean Corpuscular Volume 78.9 fL (80-94); Mean Platelet Vol. 9.8 fl (6.2-12.0); Monocyte# 0.81 X10^3/uL; Monocyte% 8.6 % (0-10); NRBC Flagged by Analyzer 0 % (0-5); Neutrophil # 6.43 X10^3/uL (2.7-7.7); Neutrophil % 68.3 % (47-70); Platelet Count 252 K/mm3 (150-450); RBC Distribution Width CV 15.2 % (11.6-14.6); RBC Distribution Width SD 43.5 fl (35.1-43.9); Red Blood Count 4.55 M/mm3 (4.6-6.2); White Blood Count 9.4 K/mm3 (4.4-11.0)
[2021-02-08 13:42] LABS: ALB/GLOB Ratio 0.6 RATIO (0.9-2.4); AST(SGOT) 13 U/L (15-37); Alanine Aminotransfer ALT/SGPT 20 U/L (16-61); Alkaline Phosphatase 101 U/L (45-117); Anion Gap 11 (5-15); BUN 34 mg/dL (7-18); BUN/Creat Ratio 22.1 RATIO (10-20); Calcium,Total 9.1 mg/dL (8.5-10.1); Chloride 98 mmol/L (98-107); Creatinine, Serum 1.54 mg/dL (0.70-1.30); EST Glomerular Filtration Rate 50 mL/min (>60); Est Glom Filt Rate - Afr Amer 60 mL/min (>60); Estimated Creatinine Clearance 52.92 ml/min; Globulin 5.2 g/dL (2.2-4.2); Glucose 245 mg/dL (74-106); Potassium 4.2 mmol/L (3.5-5.1); Protein, Total 8.2 g/dL (6.4-8.2); Sodium Level 133 mmol/L (136-145); Troponin-I HS 9 pg/mL (3.0-78.0)
[2021-02-08 14:00] VITALS: BP 129/73; PULSE 76; RESP 21; TEMP 36.5; O2SAT 100
[2021-02-08 14:43] VITALS: BP 143/71; PULSE 75; RESP 21; O2SAT 100
== END 2021-02-08 14:59 | disposition home or self-care (01) ==
PROVIDERS: Emergency Provider Emergency Medicine; PCP Family Medicine
DX: R42 Dizziness and giddiness (principal); R53.83 Other fatigue; F41.9 Anxiety disorder, unspecified; F32.A Depression, unspecified; I48.91 Unspecified atrial fibrillation; E11.9 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 without complications; I10 Essential (primary) hypertension; K21.9 Gastro-esophageal reflux disease without esophagitis; E78.5 Hyperlipidemia, unspecified; E03.9 Hypothyroidism, unspecified; E66.9 Obesity, unspecified; Z79.02 Long term (current) use of antithrombotics/antiplatelets; Z79.4 Long term (current) use of insulin; Z79.899 Other long term (current) drug therapy
CPT/HCPCS: 71045; 80053; 84484; 85025; 87426; 93005; 99284; J7030

== ENCOUNTER 2021-02-26 11:11 | Emergency (ER) | payer OTHER, SELFPAY ==
[2021-02-26 11:12] VITALS: BP 163/103; PULSE 143; RESP 20; TEMP 36.4; O2SAT 99; BMI 43.2
[2021-02-26 11:19] VITALS: PULSE 118; RESP 16; O2SAT 100
--- NOTE | 2021-02-26 11:22 | RAD_ITS ---
HISTORY: sob. TECHNIQUE: XR Chest 1 View. # of images incl. paperwork: 1. COMPARISON: 02/08/2021. FINDINGS: CARDIOMEDIASTINAL STRUCTURES: Cardiac silhouette not enlarged. Mediastinal contour unremarkable with calcification of the aorta. LUNGS: Low lung volumes with chronic coarse interstitial markings in the lung bases, likely scarring. PLEURA: No pleural effusion or pneumothorax. OSSEOUS STRUCTURES: Degenerative change. RAD/Chest 1 View (Portable) IMPRESSION: No radiographic evidence of acute cardiopulmonary disease. at 1151 Reported and signed by: Karlee Silva MD Electronically Signed: Karlee Silva MD at 11:50 EST Tel , Service support ,
--- NOTE | 2021-02-26 11:23 | EKG12_ITS ---
Test Reason : PALPS Blood Pressure : / mmHG Vent. Rate : 117 BPM Atrial Rate : 117 BPM P-R Int : 136 ms QRS Dur : 100 ms QT Int : 348 ms P-R-T Axes : 025 -20 118 degrees QTc Int : 485 ms Sinus tachycardia Left ventricular hypertrophy with repolarization abnormality Inferior infarct , age undetermined Abnormal ECG Confirmed by CARO MCRAE, ANGELA ([id number]), story editor BETHEL ROONEY ([id number]) on 02/28/2021 9:13:43 AM Referred By: KLEBER Confirmed By:ANGELA ELIZONDO MD
--- NOTE | 2021-02-26 11:24 | EX.ED.DYSGE1 ---
HPI History of Present Illness Chief Complaint: Palpitations Informant: patient Onset/Context/Timing Onset: Weeks (1) Context: Sudden Onset Timing: Intermittent Quality: sob, palpitations Location: chest Current Severity: Mild Maximum Severity: Severe Worsened by: nothing in particular Relieved by: nothing, abates w/ time Associated Symptoms Associated Symptoms: no cp or leg swelling Narrative Narrative: Patient presenting with intermittent palpitations and dyspnea that have been occurring together for the past week off and on. He has a history of paroxysmal atrial fibrillation for which he is on Eliquis, and he states he was only in A. fib once that he knows of, so he is unsure if that is what is happening here or not. He states earlier today his heart rate was in the 150s. Right now during my evaluation it is around 120. He states right now he does not feel the palpitations, but he does feel mildly dyspneic. He has had no episodes of chest discomfort or upper back discomfort, nor has he had neck, jaw, or arm pain. No diaphoresis or vomiting. No lightheadedness or near syncope. No leg swelling. No recent long trips/travel, immobilization, hospitalization, or surgeries; no history of DVT or PE. He did have an illness around 3 to 4 weeks ago that he had some negative testing for but that has been gone since this started. [facility] Medical History Acute kidney injury Anxiety and depression Atrial fibrillation with RVR (03/28/20) BPH (benign prostatic hyperplasia) Depression Diabetes Diabetes mellitus, type II Essential (primary) hypertension GERD (gastroesophageal reflux disease) History of non-ST elevation myocardial infarction (NSTEMI) (03/28/20) Hodgkin disease Hyperlipidemia Hypothyroidism Lactic acidosis Morbid obesity with BMI of 45.0-49.9, adult Nephrolithiasis Obesity KIANNA (obstructive sleep apnea) Polyneuropathy due to type 2 diabetes mellitus TIA (transient ischemic attack) (2019) Home Medications levothyroxine 125 mcg PO DAILY 05/03/15 [History Last Taken 03/28/20 06:00] pantoprazole 40 mg PO DAILY 05/03/15 [History Last Taken 03/28/20 08:00] tamsulosin 0.4 mg PO DAILY 09/08/15 [History Last Taken 03/28/20 08:00] buspirone 10 mg PO TID PRN 04/17/18 [History Last Taken 03/28/20 08:00] duloxetine 60 mg PO DAILY 04/17/18 [History Last Taken 03/28/20 08:00] atorvastatin 80 mg PO QHS #30 tab 04/19/18 [Rx Last Taken 03/28/20 08:00] hydrochlorothiazide 25 mg tablet 25 mg PO DAILY #90 tab 02/12/20 [Rx Last Taken 03/28/20 08:00] lisinopril 40 mg tablet 40 mg PO DAILY #90 tab 02/12/20 [Rx Last Taken 03/28/20 08:00] aspirin 81 mg PO DAILY@0800 tab.chew 03/30/20 [Rx Last Taken Unknown] apixaban 5 mg tablet 5 mg PO BID #60 tab 04/07/20 [Rx Last Taken Unknown] 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 meter,continuous #1 ea 07/26/20 [Rx Last Taken Unknown] 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 transmitter #1 ea 07/26/20 [Rx Last Taken Unknown] metformin 500 mg tablet,extended release 24 hr 1,000 mg PO QHS tab 10/13/20 [History Last Taken Unknown] metoprolol succinate 100 mg tablet,extended release 24 hr 100 mg PO DAILY #90 tab 10/19/20 [Rx Last Taken Unknown] pen needle, diabetic 31 gauge x 5/16 #1200 ea 12/22/20 [History Last Taken Unknown] Trulicity 3 mg/0.5 mL subcutaneous pen injector 3 mg SUBCUT QWEEK #2 ml NS 02/02/21 [Rx Last Taken Unknown] 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 sensor #3 ea 02/02/21 [Rx Last Taken Unknown] glimepiride 4 mg tablet 4 mg PO BID #180 tab 02/02/21 [Rx Last Taken Unknown] insulin glargine U-300 conc [Toujeo SoloStar U-300 Insulin] 55 unit SUBCUT DAILY 02/26/21 [History Last Taken Unknown] Allergy/AdvReac Type Severity Reaction Status Date / Time metoclopramide HCl Allergy Anaphylaxis Verified 02/26/21 11:13 [From Reglan] Family History Brother Heart disease Other Alcohol abuse Arthritis CVA (cerebral vascular accident) Diabetes ulcer disease Surgical History History of left heart catheterization (2010) History of thoracentesis (2016) Hx of nephrolithotomy with removal of calculi Social History Smoking Status: Never smoker alcohol intake: never substance use type: does not use what type of physical activity do you participate in: none ROS ROS ED Constitutional Constitutional ED: Denies chills or fever(s) Eyes Eyes: Denies change in vision or diplopia ENT ENT ED: Denies rhinorrhea or sore throat Cardiovascular Cardiovascular: Reports palpitations; Denies chest pain Respiratory/Chest Respiratory/Chest: Denies cough or dyspnea Gastrointestinal Gastrointestinal: Denies abdominal pain, diarrhea, nausea or vomiting Genitourinary Genitourinary ED: Denies dysuria or hematuria Musculoskeletal Musculoskeletal: Denies back pain or neck pain Integumentary Denies abscess or rash Neurologic Neurologic: Denies headache(s), paresthesias or weakness Psychiatric Psychiatric: Denies anxiety or suicidal thoughts EXAM Physical Exam Const Vital Signs: 02/26/21 11:12 02/26/21 11:19 02/26/21 11:26 Temperature 97.5 F L Temperature Source Temporal Pulse Rate 143 H 118 H Respiratory Rate 20 H 16 Respiratory Effort Short of Breath Respiratory Pattern Tachypnea Blood Pressure 163/103 H Blood Pressure Mean 123 Pulse Ox 99 100 100 Oxygen Delivery Method Room Air Room Air Room Air 02/26/21 12:37 02/26/21 13:18 02/26/21 14:07 Temperature Temperature Source Pulse Rate 106 H 104 H 102 H Respiratory Rate 25 H 24 H 23 H Respiratory Effort Respiratory Pattern Blood Pressure 181/91 H Blood Pressure Mean 121 Pulse Ox 94 98 100 Oxygen Delivery Method Room Air Room Air Positive well nourished, well developed and obese General Appearance ED: well developed and NAD Nutritional Appearance: obese HEENT Reports moist mucous membranes normocephalic and atraumatic Eyes PERRL and EOMs intact bilaterally Neck full ROM and supple Resp normal respiratory effort, normal air movement, no retractions and clear to auscultation bilaterally Resp Narrative: Appears mildly dyspneic but no distress Cardio regular rate, regular rhythm, no murmurs and no JVD Rate: tachycardic GI non-tender and non-distended Auscultation: normoactive bowel sounds Palpation: soft Back/Spine no CVA tenderness General Back: other FROM Extremity normal to inspection General Extremety ED: Negative for edema, pulses abnormal or tenderness General Extremity: Negative for edema or pulses abnormal Neuro oriented x3, CN's II-XII intact bilaterally and no sensory deficits noted Sensorium / Orientation: awake and alert Motor Exam: strength 5/5 throughout Skin no rashes or lesions noted and no wounds MDM MDM MDM Narrative Medical decision making narrative: Work-up is negative including CT angiography of the chest, although the patient is anticoagulated on apixaban, he does appear dyspneic and he was very tachycardic, and so I ran a D-dimer that was elevated followed by CT angiography to make sure this was not the case. It was clean. Patient gradually slowed his heart rate down to the 90s, sinus rhythm, some PVCs on occasion, he felt better and his symptoms resolved. With a negative troponin after 1 week of intermittent symptoms, I think he can safely be discharged home. I discussed with Dr. Parada who is in agreement with putting him on a Holter monitor for 48 hours and have him follow-up after the weekend. Patient is amenable to that plan. Continue Toprol 100 XL. Unfortunately there are no Holter monitors available to place on the patient at this time, it does not appear that there will be one available tomorrow either but there will be the day after. I will have the patient call the cardiology office in order to schedule this. Lab Data Attestation: I reviewed the patient's lab results. Labs: Laboratory Results - last 24 hr 02/26/21 02/26/21 02/26/21 11:25 11:25 11:25 WBC 10.5 RBC 5.42 Hgb 13.6 Hct 42.5 MCV 78.4 L MCH 25.1 L MCHC 32.0 RDW Std Deviation 44.5 H RDW Coeff of Gavi 15.9 H Plt Count 301 MPV 10.0 Immature Gran % (Auto) 0.300 Neut % (Auto) 74.3 H Lymph % (Auto) 14.0 L Dodge % (Auto) 8.6 Eos % (Auto) 2.4 Baso % (Auto) 0.4 Absolute Neuts (auto) 7.8 H Absolute Lymphs (auto) 1.47 Nucleated RBC % 0 D-Dimer Quant (PE/DVT) 2.77 H* Sodium 132 L Potassium 3.9 Chloride 101 Carbon Dioxide 20.0 L Anion Gap 11 BUN 26 H Creatinine 1.45 H Estim Creat Clear Calc 56.21 Est GFR (MDRD) Af Amer 64 Est GFR (MDRD) Non-Af 53 L BUN/Creatinine Ratio 17.9 Glucose 297 H Calcium 9.5 Troponin I High Sens 13 B-Natriuretic Peptide 02/26/21 11:25 WBC RBC Hgb Hct MCV MCH MCHC RDW Std Deviation RDW Coeff of Gavi Plt Count MPV Immature Gran % (Auto) Neut % (Auto) Lymph % (Auto) Dodge % (Auto) Eos % (Auto) Baso % (Auto) Absolute Neuts (auto) Absolute Lymphs (auto) Nucleated RBC % D-Dimer Quant (PE/DVT) Sodium Potassium Chloride Carbon Dioxide Anion Gap BUN Creatinine Estim Creat Clear Calc Est GFR (MDRD) Af Amer Est GFR (MDRD) Non-Af BUN/Creatinine Ratio Glucose Calcium Troponin I High Sens B-Natriuretic Peptide 8.7 Radiography Diagnostic Testing: Clinical Impression(s) from Imaging Studies Chest X-Ray 02/26/21 11:22 IMPRESSION: No radiographic evidence of acute cardiopulmonary disease. at 1151 Reported and signed by: Karlee Silva MD Electronically Signed: Karlee Silva MD at 11:50 EST Tel , Service support , Chest CTA 02/26/21 11:51 IMPRESSION: No evidence for pulmonary embolism. Individualized dose optimization techniques were used for this CT. at 1239 Reported and signed by: Karlee Silva MD Electronically Signed: Karlee Silva MD at 12:38 EST Tel , Service support , EKG Initial EKG: Attestation: I personally reviewed and interpreted this EKG as follows: Interpretation: No Acute Injury Pattern, Sinus Tachycardia and Inverted T-Waves (laterally) Comments: Leftward axis is unchanged Prior EKG tracings: available for review Prior: Changed (Morphology is seen, narrow QRSs, only difference is inverted lateral T waves and heart rate) Discharge Plan Triage Chief Complaint: Palpitations ED Provider: Mario Cook Dx/Rx/DC Orders Clinical Impression: Palpitations, Paroxysmal atrial fibrillation Instructions: ED About Arrhythmias, ED Palpitations Prescriptions: No Action apixaban 5 mg tablet 5 mg PO BID Qty: 60 RF: 11 (DME) Dexcom G6 Educational Speech Language Clinician Misc See Rx Instructions .ROUTE .MEDSUPPLY Qty: 1 RF: 0 (DME) Dexcom G6 Transmitter Device See Rx Instructions .ROUTE .MEDSUPPLY Qty: 1 RF: 3 (DME) pen needle, diabetic 31 gauge x 5/16 needle See Rx Instructions ea .ROUTE .MEDSUPPLY Qty: 1200 RF: 0 (DME) Dexcom G6 Sensor Device See Rx Instructions .ROUTE .MEDSUPPLY Qty: 3 RF: 6 Trulicity 3 mg/0.5 mL pen injector 3 mg subcut QWEEK Qty: 2 RF: 3 glimepiride 4 mg tablet 4 mg PO BID Qty: 180 RF: 3 pantoprazole 40 MG tablet 40 mg PO DAILY RF: 0 levothyroxine 125 MCG tablet 125 mcg PO DAILY RF: 0 tamsulosin 0.4 MG capsule 0.4 mg PO DAILY RF: 0 buspirone 10 MG tablet 10 mg PO TID PRN RF: 0 duloxetine 60 MG capsule,delayed release(DR/EC) 60 mg PO DAILY RF: 0 atorvastatin 80 MG tablet 80 mg PO QHS Qty: 30 RF: 0 metformin 500 mg tablet extended release 24 hr 1,000 mg PO QHS RF: 0 aspirin 81 MG tablet,chewable 81 mg PO DAILY@0800 RF: 0 Toujeo SoloStar U-300 Insulin 300 unit/mL (1.5 mL) insulin pen 55 unit SUBCUT DAILY RF: 0 hydrochlorothiazide 25 mg tablet 25 mg PO DAILY Qty: 90 RF: 3 lisinopril 40 mg tablet 40 mg PO DAILY Qty: 90 RF: 3 metoprolol succinate 100 mg tablet extended release 24 hr 100 mg PO DAILY Qty: 90 RF: 3 Primary Care Provider: Radha Khan Referrals: Radha Khan MD [Primary Care Provider] - Sumanth Hanna MD [STAFF PHYSICIAN] - (Call for appointment to be seen after your Holter is finished) Disposition Disposition: Home, Self Care
[2021-02-26 11:26] VITALS: O2SAT 100
[2021-02-26] MEDS: 0.9% Normal Saline 1,000 ML 150 ML IV (11:31)
[2021-02-26 11:33] LABS: Absolute Lymphocyte Count 1.47 X10^3/uL (0.83-4.51); Absolute Neutrophil Count 7.8 X10^3/uL (2.0-7.7); Basophil# 0.04 X10^3/uL; Basophil% 0.4 % (0-1); Eosinophil# 0.25 X10^3/uL; Eosinophils% 2.4 % (0-5); Hematocrit 42.5 % (40-54); Hemoglobin 13.6 g/dL (13.0-16.5); Lymphocyte # 1.47 X10^3/ul (0.83-4.51); Mean Corpuscular Hgb 25.1 pg (27.0-32.0); Mean Corpuscular Volume 78.4 fL (80-94); Monocyte% 8.6 % (0-10); NRBC Flagged by Analyzer 0 % (0-5); Neutrophil # 7.83 X10^3/uL (2.7-7.7); Neutrophil % 74.3 % (47-70); Platelet Count 301 K/mm3 (150-450); RBC Distribution Width CV 15.9 % (11.6-14.6); RBC Distribution Width SD 44.5 fl (35.1-43.9); Red Blood Count 5.42 M/mm3 (4.6-6.2); White Blood Count 10.5 K/mm3 (4.4-11.0)
[2021-02-26 11:42] LABS: D-Dimer Quantitative (DVT/PE) 2.77 FEU/ug/m (0.27-0.49)
[2021-02-26 11:46] LABS: Anion Gap 11 (5-15); BUN 26 mg/dL (7-18); BUN/Creat Ratio 17.9 RATIO (10-20); Calcium,Total 9.5 mg/dL (8.5-10.1); Chloride 101 mmol/L (98-107); Creatinine, Serum 1.45 mg/dL (0.70-1.30); EST Glomerular Filtration Rate 53 mL/min (>60); Est Glom Filt Rate - Afr Amer 64 mL/min (>60); Estimated Creatinine Clearance 56.21 ml/min; Glucose 297 mg/dL (74-106); Potassium 3.9 mmol/L (3.5-5.1); Sodium Level 132 mmol/L (136-145); Troponin-I HS 13 pg/mL (3.0-78.0)
--- NOTE | 2021-02-26 11:51 | CT_ITS ---
HISTORY: Shortness of breath, tachycardia, normal CXR, elevated d-dimer. TECHNIQUE: Helically acquired images of the chest following IV contrast as per pulmonary angiogram protocol with 2D and 3D reconstructions. A radiation dose optimization technique was used for this scan. IV Contrast dosage and agent: 100 mL [id number]. # of images incl. paperwork: [id number]. COMPARISON: XR same day. FINDINGS: CENTRAL AIRWAYS: Patent. Patulous esophagus containing fluid. LUNGS: Mild peripheral reticular scarring bilaterally. PLEURA: No pneumothorax or pleural effusion. PULMONARY ARTERIES: No filling defect. HEART/PERICARDIUM: Heart within normal limits in size. No significant pericardial effusion. Coronary artery disease. AORTA/GREAT VESSELS: No aortic aneurysm or dissection flap. MEDIASTINUM/NIDA: Scattered small lymph nodes. OSSEOUS STRUCTURES: Diffuse idiopathic skeletal hyperostosis. SOFT TISSUES: Mild gynecomastia. UPPER ABDOMEN: Hepatic steatosis. Possible gallstone. CT/CTA Chest W/WO Contrast IMPRESSION: No evidence for pulmonary embolism. Individualized dose optimization techniques were used for this CT. at 1239 Reported and signed by: Karlee Silva MD Electronically Signed: Karlee Silva MD at 12:38 EST Tel , Service support ,
[2021-02-26 11:58] LABS: BNP,B-Type NATRIURETIC PEPTIDE 8.7 pg/mL (0-100)
[2021-02-26 12:37] VITALS: BP 181/91; PULSE 106; RESP 25; O2SAT 94
[2021-02-26 13:18] VITALS: PULSE 104; RESP 24; O2SAT 98
[2021-02-26 14:07] VITALS: PULSE 102; RESP 23; O2SAT 100
--- NOTE | 2021-02-26 15:18 | ED.RN ---
PT EDUCATED ON WRITTEN AND VERBAL DISCHARGE INSTRUCTIONS. PT EDUCATED TO TAKE HIS HOME BP MEDICATIONS WHEN HE RETURNS HOME AND TO FOLLOW UP WITH CARDIOLOGY SOON POSSIBLE. EDUCATED TO RETURN TO ED FOR NEW OR WORSENED SX. PT IV D/C AND COVERED WITH 2X2 GAUZE AND PAPER TAPE.
== END 2021-02-26 15:20 | disposition home or self-care (01) ==
PROVIDERS: Emergency Provider Emergency Medicine; PCP Family Medicine
DX: I48.0 Paroxysmal atrial fibrillation (principal); R06.00 Dyspnea, unspecified; F41.9 Anxiety disorder, unspecified; F32.A Depression, unspecified; E11.9 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 without complications; I10 Essential (primary) hypertension; K21.9 Gastro-esophageal reflux disease without esophagitis; E03.9 Hypothyroidism, unspecified; E78.5 Hyperlipidemia, unspecified; E66.01 Morbid (severe) obesity due to excess calories; Z79.4 Long term (current) use of insulin; Z79.02 Long term (current) use of antithrombotics/antiplatelets; Z79.899 Other long term (current) drug therapy
CPT/HCPCS: 71045; 71275; 80048; 83880; 84484; 85025; 85379; 93005; 96360; 96361; 99284; J7030; Q9967; A4216

== ENCOUNTER → 2021-03-02 | Outpatient (CLI) | payer OTHER, SELFPAY | END | disposition home or self-care (01) | PROVIDERS: PCP Family Medicine; Referring Provider Family Medicine; Visit Provider Family Medicine | DX: Z20.822 Contact with and (suspected) exposure to COVID-19 (principal) | CPT/HCPCS: 87635; U0005; U0003 ==

== ENCOUNTER 2021-05-30 11:55 | Outpatient (CLI) | payer OTHER, SELFPAY ==
[2021-05-30 15:32] LABS: Absolute Lymphocyte Count 1.58 X10^3/uL (0.83-4.51); Absolute Neutrophil Count 4.4 X10^3/uL (2.0-7.7); Basophil# 0.05 X10^3/uL; Basophil% 0.7 % (0-1); Eosinophil# 0.16 X10^3/uL; Eosinophils% 2.4 % (0-5); Hematocrit 36.9 % (40-54); Hemoglobin 11.9 g/dL (13.0-16.5); Lymphocyte # 1.58 X10^3/ul (0.83-4.51); Lymphocyte % 23.4 % (19-41); Mean Corp Hgb Conc 32.2 g/dL (32-36); Mean Corpuscular Hgb 26.2 pg (27.0-32.0); Mean Corpuscular Volume 81.3 fL (80-94); Mean Platelet Vol. 10.7 fl (6.2-12.0); Monocyte# 0.58 X10^3/uL; Monocyte% 8.6 % (0-10); NRBC Flagged by Analyzer 0 % (0-5); Neutrophil # 4.36 X10^3/uL (2.7-7.7); Neutrophil % 64.8 % (47-70); Platelet Count 201 K/mm3 (150-450); RBC Distribution Width CV 15.6 % (11.6-14.6); RBC Distribution Width SD 46.5 fl (35.1-43.9); Red Blood Count 4.54 M/mm3 (4.6-6.2); White Blood Count 6.7 K/mm3 (4.4-11.0)
[2021-05-30 16:23] LABS: Thyroid Stim Hormone (TSH) 1.24 uIU/mL (0.358-3.74)
== END 2021-05-30 23:59 | disposition home or self-care (01) ==
LOC: MFPLAB 11:56
PROVIDERS: PCP Family Medicine; Referring Provider Family Medicine; Visit Provider Family Medicine
DX: R06.02 Shortness of breath (principal)
CPT/HCPCS: 36415; 84443; 85025

== ENCOUNTER 2021-06-01 14:47 | Outpatient (CLI) | payer OTHER, SELFPAY ==
[2021-06-01 17:31] LABS: ALB/GLOB Ratio 0.8 RATIO (0.9-2.4); AST(SGOT) 24 U/L (15-37); Alanine Aminotransfer ALT/SGPT 31 U/L (16-61); Albumin, Serum 3.5 g/dL (3.2-5.0); Alkaline Phosphatase 96 U/L (45-117); Anion Gap 7 (5-15); BUN 29 mg/dL (7-18); BUN/Creat Ratio 22.3 RATIO (10-20); Calcium,Total 9.1 mg/dL (8.5-10.1); Chloride 102 mmol/L (98-107); Cholesterol 189 mg/dL (200); EST Glomerular Filtration Rate 60 mL/min (>60); Est Glom Filt Rate - Afr Amer 73 mL/min (>60); Globulin 4.6 g/dL (2.2-4.2); Glucose 285 mg/dL (74-106); High Density Lipoprotein 33 mg/dL; Potassium 4.1 mmol/L (3.5-5.1); Protein, Total 8.1 g/dL (6.4-8.2); Sodium Level 133 mmol/L (136-145); Triglycerides 526 mg/dL
== END 2021-06-01 23:59 | disposition home or self-care (01) ==
LOC: BIMLAB 14:48
PROVIDERS: PCP Family Medicine; Referring Provider Nurse Practitioner Family; Visit Provider Nurse Practitioner Family
DX: E66.01 Morbid (severe) obesity due to excess calories (principal); E11.65 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 mellitus with hyperglycemia; Z68.42 Body mass index [BMI] 45.0-49.9, adult; Z79.4 Long term (current) use of insulin; E78.5 Hyperlipidemia, unspecified
CPT/HCPCS: 36415; 80053; 80061

== ENCOUNTER 2021-06-02 09:05 | Outpatient (CLI) | payer OTHER, SELFPAY ==
[2021-06-02 10:00] LABS: Microalbumin,Random Urine 22.8 mg/L (NO RANGE EST.); Microalbumin:Creatinine Ratio 40.2 mg/g CRE (<30 mg/g CRE)
== END 2021-06-02 23:59 | disposition home or self-care (01) ==
LOC: PSN 09:06
PROVIDERS: Nurse Practitioner Family; PCP Family Medicine; Referring Provider Family Medicine; Visit Provider Family Medicine
DX: I20.0 Unstable angina (principal); R06.02 Shortness of breath
CPT/HCPCS: 82043; 82570

== ENCOUNTER 2021-06-02 09:32 | Outpatient (CLI) | payer OTHER, SELFPAY ==
--- NOTE | 2021-06-02 09:37 | EKG12_ITS ---
Test Reason : ANGINA Blood Pressure : / mmHG Vent. Rate : 119 BPM Atrial Rate : 119 BPM P-R Int : 132 ms QRS Dur : 108 ms QT Int : 348 ms P-R-T Axes : 036 -08 127 degrees QTc Int : 489 ms Sinus tachycardia with Premature atrial complexes Left ventricular hypertrophy with repolarization abnormality Abnormal ECG Confirmed by KATHRYN MCRAE, AYSH ([id number]), multimedia editor BETHEL ROONEY ([id number]) on 06/02/2021 1:36:22 PM Referred By: Radha Khan Confirmed By:THIEN PERALTA MD
== END 2021-06-02 23:59 | disposition home or self-care (01) ==
LOC: PSN 09:34
PROVIDERS: PCP Family Medicine; Referring Provider Family Medicine; Visit Provider Family Medicine
DX: I20.0 Unstable angina (principal); R06.02 Shortness of breath
CPT/HCPCS: 93005

== ENCOUNTER 2021-06-15 13:45 | Outpatient (CLI) | payer OTHER, SELFPAY ==
[2021-06-15 14:08] VITALS: PULSE 100; PULSE 101; PULSE 104; PULSE 84; PULSE 86; PULSE 97; PULSE 99; O2SAT 100; O2SAT 87; O2SAT 89; O2SAT 92; O2SAT 94; O2SAT 95; O2SAT 97
--- NOTE | 2021-06-15 14:10 | CPS ---
Patient is a new patient of Dr. Rodriguez's. He is scheduled on 06/22/21 at 1115. Paperwork faxed to his office and spoke to Hyun.
--- NOTE | 2021-06-15 15:18 | PCM.PSN.6M ---
PSN 6 Minute Walk Test 6 Minute Walk Test 6 Minute Walk Test: 6 Minute Walk Test PSN:6-Minute Walk Test Start: 06/15/21 14:07 Freq: Status: Active Protocol: [id number].6MINW Document 06/15/21 14:08 CRISTIAN (Rec: 06/15/21 14:11 NEENAON [id number]) 6 Minute Walk Test Date Performed 06/15/21 Time Performed 13:45 Height 5 ft 9 in Weight: 139.706 kg Weight in Pounds 308.[address]: Radha Khan Assistive device used: None Pre-test Oxygen Delivery Method Room Air Pulse Ox (%) 97 Pulse Rate (60-100 beats/min) 84 Dyspnea Marilyn Scale (0-10) 0 Exertion Marilyn Scale (6-20) 6 1st minute Oxygen Delivery Method Room Air Pulse Ox (%) 95 Pulse Rate (60-100 beats/min) 100 2nd minute Oxygen Delivery Method Room Air Pulse Ox (%) 92 Pulse Rate (60-100 beats/min) 99 3rd minute Oxygen Delivery Method Room Air Pulse Ox (%) 89 Pulse Rate (60-100 beats/min) 104 H 4th minute Oxygen Delivery Method Room Air Pulse Ox (%) 87 Pulse Rate (60-100 beats/min) 104 H Dyspnea Marilyn Scale (0-10) 3 5th minute Oxygen Flow Rate (L/min) (L/min) 2 Oxygen Delivery Method Nasal Cannula Pulse Ox (%) 97 Pulse Rate (60-100 beats/min) 97 6th minute Oxygen Flow Rate (L/min) (L/min) 2 Oxygen Delivery Method Nasal Cannula Pulse Ox (%) 94 Pulse Rate (60-100 beats/min) 101 H Dyspnea Marilyn Scale (0-10) 1 Exertion Marilyn Scale (6-20) 12 Post-test Oxygen Flow Rate (L/min) (L/min) 2 Oxygen Delivery Method Nasal Cannula Pulse Ox (%) 100 Pulse Rate (60-100 beats/min) 86 Full Laps Walked 16 Partial Lap, Number of Tiles Walked 40 Total Distance Walked (ft) 984 06/15/21 14:10 Cardiopulmonary Services by [place] Patient is a new patient of Dr. Grimaldo. He is scheduled on 06/22/21 at 1115. Paperwork faxed to his office and spoke to Hyun. Initialized on 06/15/21 14:10 - END OF NOTE Interpretation Interpretation: The patient was noted to be 97% on room air at rest. However, the patient desaturated to 87% in the fourth minute of ambulation. The patient was placed on 2 L nasal cannula with improvement to 99% and was able to finish ambulating. In total, the patient traveled 984 feet over the course of 6 minutes with no assistive devices and 1 break. No significant tachycardia was noted. These findings are consistent with a respiratory limitation exercise tolerance. Recommendations Recommendations: No supplemental oxygen is indicated at rest, but patient should be using 2 L nasal cannula with any exertion.
== END 2021-06-15 23:59 | disposition home or self-care (01) ==
LOC: PSN 13:46
PROVIDERS: PCP Family Medicine; Referring Provider Family Medicine; Visit Provider Family Medicine
DX: I20.0 Unstable angina (principal); R06.02 Shortness of breath
CPT/HCPCS: 94618

== ENCOUNTER 2021-06-19 07:07 | Inpatient (IN) | payer OTHER, SELFPAY ==
[2021-06-19] VITALS (11 sets, daily range): BP systolic 150–204; BP diastolic 76–96; PULSE 73–95; RESP 18–24; TEMP 36.2–36.7; O2SAT 79–99; BMI 44.9; BMI 44.3
--- NOTE | 2021-06-19 07:25 | EKG12_ITS ---
Test Reason : SOB Blood Pressure : / mmHG Vent. Rate : 080 BPM Atrial Rate : 080 BPM P-R Int : 142 ms QRS Dur : 106 ms QT Int : 416 ms P-R-T Axes : 020 -09 026 degrees QTc Int : 479 ms Normal sinus rhythm Voltage criteria for left ventricular hypertrophy Inferior infarct , age undetermined Abnormal ECG Confirmed by CARO MCRAE, ANGELA ([id number]), news assignment editor BETHEL ROONEY ([id number]) on 06/22/2021 9:26:52 AM Referred By: IVETT Confirmed By:ANGELA ELIZONDO MD
--- NOTE | 2021-06-19 07:40 | ED.VIS.DYS ---
HPI History of Present Illness Chief Complaint: Shortness of Breath Detail of Chief Complaint: Intermittent shortness of breath for several months Informant: patient Onset/Context/Timing Onset: Month(s) Context: sudden Timing: Intermittent Quality: Positive for Dyspnea on exertion; Negative for Orthopnea, PND and Wheezing Current Severity: Mild Maximum Severity: Severe Worsened by: Exertion; Not Worsened By Lying flat and Coughing Relieved by: Nothing Associated Symptoms cough; Negative for rhinorrhea, post nasal drip, ear pain, fever, sore throat, subjective, chills, sweats, clear sputum, white sputum, yellow sputum or green sputum Chest Pain: Positive for None Narrative Narrative: Patient is a 55-year-old male with history of type 2 diabetes with polyneuropathy, atrial fibrillation on long-term anticoagulant, hypertension, hyperlipidemia, non-ST elevation [place] and TIA. He has a remote history of Hodgkin's disease. He presents because of shortness of breath. He denies history of VTE. He denies fever, chills night sweats. He denies upper respiratory infectious symptoms. He denies leg pain, swelling or disc comfort. He denies a discoloration of his leg. He denies orthopnea or PND. He denies black or maroon-colored stool. He is on iron for anemia. He states 2 days ago he had blood in his urine. He denies dysuria or urgency. He does have history of renal/ureteral lithiasis. Patient states he has an upcoming appointment with Dr. Salas to evaluate his shortness of breath. PE Risk Factors: Negative for Cancer (Not active), OCP + Smoking + > 35, Prior DVT or PE, Recent immobilization, Recent surgery and Recent travel Prior similar symptoms: Yes Recent Illness/Hospitalization: No PFSH PFS Medical History Acute kidney injury Anxiety and depression Atrial fibrillation with RVR (03/28/20) BPH (benign prostatic hyperplasia) Depression Diabetes Diabetes mellitus, type II Essential (primary) hypertension GERD (gastroesophageal reflux disease) History of non-ST elevation myocardial infarction (NSTEMI) (03/28/20) Hodgkin disease Hyperlipidemia Hypothyroidism Lactic acidosis Morbid obesity with BMI of 45.0-49.9, adult Nephrolithiasis Obesity KIANNA (obstructive sleep apnea) Polyneuropathy due to type 2 diabetes mellitus TIA (transient ischemic attack) (2018) Home Medications levothyroxine 125 mcg PO DAILY 05/03/15 [History Last Taken 03/28/20 06:00] pantoprazole 40 mg PO DAILY 05/03/15 [History Last Taken 03/28/20 08:00] tamsulosin 0.4 mg PO DAILY 09/08/15 [History Last Taken 03/28/20 08:00] buspirone 10 mg PO TID PRN 04/17/18 [History Last Taken 03/28/20 08:00] duloxetine 60 mg PO DAILY 04/17/18 [History Last Taken 03/28/20 08:00] atorvastatin 80 mg PO QHS #30 tab 04/19/18 [Rx Last Taken 03/28/20 08:00] aspirin 81 mg PO DAILY@0800 tab.chew 03/30/20 [Rx Last Taken Unknown] 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 meter,continuous #1 ea 07/26/20 [Rx Last Taken Unknown] metformin 500 mg tablet,extended release 24 hr 1,000 mg PO QHS tab 10/13/20 [History Last Taken Unknown] metoprolol succinate 100 mg tablet,extended release 24 hr 100 mg PO DAILY #90 tab 10/19/20 [Rx Last Taken Unknown] pen needle, diabetic 31 gauge x 5/16 #1200 ea 12/22/20 [History Last Taken Unknown] glimepiride 4 mg tablet 4 mg PO BID #180 tab 02/02/21 [Rx Last Taken Unknown] insulin glargine U-300 conc [Toujeo SoloStar U-300 Insulin] 55 unit SUBCUT DAILY 02/26/21 [History Last Taken Unknown] hydrochlorothiazide 25 mg tablet 25 mg PO DAILY #90 tab 04/03/21 [Rx Last Taken Unknown] lisinopril 40 mg tablet 40 mg PO DAILY #90 tab 04/03/21 [Rx Last Taken Unknown] apixaban 5 mg tablet 5 mg PO BID #60 tab 05/10/21 [Rx Last Taken Unknown] Humalog KwikPen Insulin 100 unit/mL subcutaneous 20 unit SUBCUT TID #18 ml NS 06/01/21 [Rx Last Taken Unknown] Trulicity 0.75 mg/0.5 mL subcutaneous pen injector 0.75 mg SUBCUT QWEEK #2 ml NS 06/01/21 [Rx Last Taken Unknown] 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 sensor #3 ea 06/01/21 [Rx Last Taken Unknown] 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 transmitter #1 ea 06/01/21 [Rx Last Taken Unknown] pen needle, diabetic 32 gauge x #150 ea 06/01/21 [Rx Last Taken Unknown] Allergy/AdvReac Type Severity Reaction Status Date / Time metoclopramide HCl Allergy Anaphylaxis Verified 06/01/21 13:33 [From Reglan] Family History Brother Heart disease Other Alcohol abuse Arthritis CVA (cerebral vascular accident) Diabetes ulcer disease Surgical History History of left heart catheterization (2009) History of thoracentesis (2015) Hx of nephrolithotomy with removal of calculi Social History (Updated 06/19/21 @ 07:[address] Angel Avitia MD) household members: none Smoking Status: Never smoker alcohol intake: never substance use type: does not use what type of physical activity do you participate in: none ROS ROS ED Constitutional Constitutional ED: Denies chills, fever(s), sweats or weight loss Eyes Eyes: Denies blurry vision, change in vision or diplopia ENT ENT ED: Denies ear pain, rhinorrhea or sore throat Cardiovascular Cardiovascular: Denies chest pain, orthopnea, palpitations, paroxysmal nocturnal dyspnea or racing heartbeat Respiratory/Chest Respiratory/Chest: Reports cough, dyspnea and dyspnea on exertion; Denies orthopnea, paroxysmal nocturnal dyspnea or sputum Gastrointestinal Gastrointestinal: Denies abdominal pain, constipation, diarrhea, melena, nausea or vomiting Genitourinary Genitourinary ED: Reports hematuria; Denies dysuria or urinary frequency Musculoskeletal Musculoskeletal: Denies arthralgias, back pain, myalgias or neck pain Integumentary Denies rash Neurologic Neurologic: Denies headache(s), paresthesias or weakness Psychiatric Psychiatric: Denies anxiety or depression Endocrine Endocrinology: Denies polydipsia, polyphagia or polyuria Hematologic/Lymphatic Hematologic/Lymphatic: Reports easy bruising; Denies easy bleeding or lymphadenopathy EXAM Physical Exam Const Vital Signs: 06/19/21 07:08 06/19/21 07:12 06/19/21 07:50 Temperature 97.6 F L Temperature Source Oral Pulse Rate 79 Respiratory Rate 24 H Respiratory Effort Short of Breath Respiratory Depth Deep Respiratory Pattern Tachypnea Blood Pressure 202/96 H Blood Pressure Mean 131 Pulse Ox 98 98 Oxygen Delivery Method Nasal Cannula Room Air Nasal Cannula Oxygen Flow Rate (L/min) 1 1 Patient was 75% on room air initially. He appears pale. He is saturating 9394% on oxygen. He was placed on 3 L. Positive well nourished, well developed and obese General Appearance ED: well developed, NAD and pallor Nutritional Appearance: obese HEENT Reports TM's clear and moist mucous membranes; Denies dry mucous membranes atraumatic; Negative for tenderness Tympanic Membrane ED: Yes TM's clear Mouth ED: No dry mucous membranes Mouth: No dry mucous membranes Eyes PERRL and EOMs intact bilaterally General Eye ED: Negative for pale conjunctiva or scleral icterus Neck no lymphadenopathy, supple and no meningeal signs Neck Narrative: Trachea is midline. There is no carotid bruits. Resp normal respiratory effort and No clear to auscultation bilaterally Auscultation: rales right lower (Patient commented when he lies flat there is more rattling in his chest.) Cardio regular rate, regular rhythm, S1 normal heart sound, S2 normal heart sound and no murmurs GI non-tender, non-distended and no masses Auscultation: normoactive bowel sounds Palpation: soft Back/Spine no CVA tenderness and normal to inspection Extremity normal to inspection Extremity Narrative: 1+ pitting. There is no asymmetry, discoloration, leg vein distention, palpable cords or tenderness on the distribution of the deep venous system. General Extremety ED: Yes tenderness; Negative for edema General Extremity: Negative for edema Neuro oriented x3, CN's II-XII intact bilaterally and no sensory deficits noted Corky Coma Scale: document GCS findings Spontaneous Obeys Commands Oriented 15 Sensorium / Orientation: alert Motor Exam: strength 5/5 throughout Psych mental status grossly normal Thought Process: normal thought process Skin no wounds General Skin Exam: pallor; Negative for jaundice Lesions: no lesions Rashes: no rashes MDM MDM MDM Narrative Medical decision making narrative: Differential diagnosis would include anemia, CHF, pneumonia less likely would be pulmonary embolus since this is been intermittent over 3 months. Furthermore, patient is on Eliquis and reports not missing any of his doses. Patient's lactate is elevated. Suspect this is due to hypoxia. Since he is clinically fluid overloaded 20 mg of Lasix was ordered as well as 1 inch of Nitropaste. Patient was reassessed at 0818. He was informed of the results that were back. Lab Data Attestation: I reviewed the patient's lab results. Lab results narrative: CBC is unremarkable. Basic metabolic panel is remarkable for a glucose of 191. Troponin is 46 which is normal but elevated. BNP is elevated. Labs: Laboratory Results - last 24 hr 06/19/21 06/19/21 06/19/21 07:45 07:45 07:45 WBC 7.4 RBC 4.54 L Hgb 12.0 L Hct 36.2 L MCV 79.7 L MCH 26.4 L MCHC 33.1 RDW Std Deviation 43.1 RDW Coeff of Gavi 15.0 H Plt Count 216 MPV 9.7 Immature Gran % (Auto) 0.500 Neut % (Auto) 69.5 Lymph % (Auto) 17.3 L [place] % (Auto) 9.6 Eos % (Auto) 2.6 Baso % (Auto) 0.5 Absolute Neuts (auto) 5.1 Absolute Lymphs (auto) 1.28 Nucleated RBC % 0 Sodium 137 Potassium 3.9 Chloride 104 Carbon Dioxide 26.0 Anion Gap 7 BUN 14 Creatinine 0.96 Estim Creat Clear Calc 84.90 Est GFR (MDRD) Af Amer 104 Est GFR (MDRD) Non-Af 86 BUN/Creatinine Ratio 14.6 Glucose 191 H Lactic Acid 2.2 H* Calcium 8.8 Troponin I High Sens 46 B-Natriuretic Peptide Urine Color Urine Clarity Urine pH Ur Specific [place] Urine Protein Urine Glucose (UA) Urine Ketones Urine Occult Blood Urine Nitrite Urine Bilirubin Urine Urobilinogen Ur Leukocyte Esterase Urine RBC Urine WBC Ur Squamous Epith Cells Urine Bacteria Urine Mucus 06/19/21 06/19/21 07:45 09:00 WBC RBC Hgb Hct MCV MCH MCHC RDW Std Deviation RDW Coeff of Gavi Plt Count MPV Immature Gran % (Auto) Neut % (Auto) Lymph % (Auto) [place] % (Auto) Eos % (Auto) Baso % (Auto) Absolute Neuts (auto) Absolute Lymphs (auto) Nucleated RBC % Sodium Potassium Chloride Carbon Dioxide Anion Gap BUN Creatinine Estim Creat Clear Calc Est GFR (MDRD) Af Amer Est GFR (MDRD) Non-Af BUN/Creatinine Ratio Glucose Lactic Acid Calcium Troponin I High Sens B-Natriuretic Peptide 155.0 H Urine Color Yellow Urine Clarity Clear Urine pH 6.0 Ur Specific [place] 1.015 Urine Protein 30 H Urine Glucose (UA) Normal Urine Ketones Negative Urine Occult Blood Negative Urine Nitrite Negative Urine Bilirubin Negative Urine Urobilinogen Normal Ur Leukocyte Esterase Negative Urine RBC 0 SEEN Urine WBC 0 SEEN Ur Squamous Epith Cells 0 SEEN Urine Bacteria 0 SEEN Urine Mucus 0 SEEN Radiography Chest X-Ray - ED: 2 View and Read by ED Physician (Interpreted at 0758. Patient has evidence of congestive heart failure with mild effusion. Cardiac silhouette size are unremarkable. Osseous structures are unremarkable.) Diagnostic Testing: Clinical Impression(s) from Imaging Studies Chest X-Ray 06/19/21 07:48 IMPRESSION: 1. Mild vascular congestion, interstitial thickening/edema and trace effusion suggesting fluid overload/CHF. Electronically Signed: Eze Dasilva MD ([place]) at 8:02 EDT Reading Location ID and State: [address] [place] [address] , Service support , EKG Initial EKG: Attestation: I personally reviewed and interpreted this EKG as follows: Interpretation: Sinus Rhythm (Ventricular rate is 80. FL interval 242. QRS duration 106 ms. Duration 416 ms. [place] is normal. Based on voltage criteria patient does have LVH.) Critical Care Time Critical Care Time: Yes Critical care time (excluding procedures): 30-74 minutes (31 minutes), Including time spent: (History, physical, documentation, review of prior records, interpretation laboratory results, initiation of therapy), Discussing w/Patient &/or Family/Equipment Service Technician, Discussing w/Consultants and Arranging Admission or Transfer Discharge Plan Dx/Rx/DC Orders Clinical Impression: Acute respiratory failure with hypoxia, Hyperlipidemia, Essential (primary) hypertension, New onset of congestive heart failure, Acidosis, lactic Disposition Disposition: Acute Care [facility]
--- NOTE | 2021-06-19 07:48 | RAD_ITS ---
STUDY: X-RAY CHEST REASON FOR EXAM: Male, 55 years old. Shortness of breath with hypoxia TECHNIQUE: PA and lateral views of the chest. COMPARISON: 02/26/2021 FINDINGS: EKG leads project over the chest. Vascular congestion and interstitial thickening new since the prior study. Trace bilateral pleural effusions. There is mild cardiac enlargement. Normal mediastinum and darrel. There is prominence of the pulmonary hilar arteries and peripheral pulmonary arteries, consistent with congestive heart failure (CHF). There is atherosclerotic calcification of the aortic arch with tortuosity. There are diffuse degenerative changes of the visualized thoracic spine. Normal visualized ribs, clavicles, and shoulders. There is no demonstrated abnormality of the visualized soft tissue structures of the upper abdomen. RAD/Chest PA and Lateral IMPRESSION: 1. Mild vascular congestion, interstitial thickening/edema and trace effusion suggesting fluid overload/CHF. Electronically Signed: Eze Dasilva MD ([place]) at 8:02 EDT ,
[2021-06-19 07:55] LABS: Absolute Lymphocyte Count 1.28 X10^3/uL (0.83-4.51); Absolute Neutrophil Count 5.1 X10^3/uL (2.0-7.7); Basophil# 0.04 X10^3/uL; Basophil% 0.5 % (0-1); Eosinophil# 0.19 X10^3/uL; Eosinophils% 2.6 % (0-5); Hematocrit 36.2 % (40-54); Lymphocyte # 1.28 X10^3/ul (0.83-4.51); Lymphocyte % 17.3 % (19-41); Mean Corp Hgb Conc 33.1 g/dL (32-36); Mean Corpuscular Hgb 26.4 pg (27.0-32.0); Mean Corpuscular Volume 79.7 fL (80-94); Mean Platelet Vol. 9.7 fl (6.2-12.0); Monocyte# 0.71 X10^3/uL; Monocyte% 9.6 % (0-10); NRBC Flagged by Analyzer 0 % (0-5); Neutrophil # 5.14 X10^3/uL (2.7-7.7); Neutrophil % 69.5 % (47-70); Platelet Count 216 K/mm3 (150-450); RBC Distribution Width SD 43.1 fl (35.1-43.9); Red Blood Count 4.54 M/mm3 (4.6-6.2); White Blood Count 7.4 K/mm3 (4.4-11.0)
[2021-06-19 08:12] LABS: Anion Gap 7 (5-15); BUN 14 mg/dL (7-18); BUN/Creat Ratio 14.6 RATIO (10-20); Calcium,Total 8.8 mg/dL (8.5-10.1); Chloride 104 mmol/L (98-107); Creatinine, Serum 0.96 mg/dL (0.70-1.30); EST Glomerular Filtration Rate 86 mL/min (>60); Est Glom Filt Rate - Afr Amer 104 mL/min (>60); Glucose 191 mg/dL (74-106); Potassium 3.9 mmol/L (3.5-5.1); Sodium Level 137 mmol/L (136-145); Troponin-I HS 46 pg/mL (3.0-78.0)
[2021-06-19 08:20] LABS: Lactic Acid 2.2 mmol/L (0.4-1.9)
[2021-06-19 09:08] LABS: Bacteria 0 SEEN /hpf (None Seen); Mucous, Urine 0 SEEN /hpf (<or=2+); Red Blood Cells-Urine 0 SEEN /hpf (0-5); Squamous Epithelial Cells - UA 0 SEEN /hpf (0-5); White Blood Cells 0 SEEN /hpf (0-5)
[2021-06-19 09:12] LABS: Color, Urine Yellow (Yellow); Glucose, Dipstick Normal (Normal); Ketone-Dipstick Negative (Negative); Leukocyte Esterase-Dipstick Negative /ul (Negative); Nitrite-Dipstick Negative (Negative); Occult Blood-Urine Negative /ul (Negative); Protein-Dipstick 30 mg/dl (Negative); Specific Gravity, Urine 1.015 (1.002-1.030); Urine Bilirubin Dipstick Negative (Negative); Urine Clarity Clear (Clear); Urine Urobilinogen Normal (Normal)
--- NOTE | 2021-06-19 09:22 | HP.PCM.HOS_ITS ---
[facility] - General General Date of Admission: 06/19/21 Date of Service: 06/19/21 Chief Complaint: Progressive shortness of breath ongoing for months HPI Narrative KRUNAL LEOS, is a 55 M who presents with the above ongoing for months. Patient has past medical history of paroxysmal atrial fibrillation, hypertension, hypothyroidism, type II DM who has been having progressive shortness of breath ongoing for months. He has been working with his primary care doctor. He had an EKG in the outpatient done that was unremarkable. He underwent PFTs on 06/15/21 that was remarkable for some hypoxia with exertion. Patient was due to follow-up with pulmonology. He woke up this morning feeling short of breath with exertion. He says this comes on and off. He denied any orthopnea or PND or chest pain or dizziness or palpitation. He denied any new medications. Vitals in the ED showed blood pressure 202/96, temperature 97.6 F, heart rate 79, respiratory 22, SPO2 98% on room air, SPO2 was 79% on room air on exertion. His admitting blood work showed hemoglobin of 12.0, WBC count of 7.4, platelet count of 216. BMP was unremarkable. Lactic acid is 2.2. BN pep is 155. EKG shows normal sinus rhythm, no acute ST-T changes, LVH. UA is unremarkable. Chest x-ray shows mild vascular congestion, interstitial thickening/edema suggestive of acute CHF. [facility] Medical History Acute kidney injury Anemia Anxiety Anxiety and depression Atrial fibrillation Atrial fibrillation with RVR (03/28/20) BPH (benign prostatic hyperplasia) Cancer Current use of insulin Depression Diabetes Diabetes mellitus, type II Dyspnea Essential (primary) hypertension GERD (gastroesophageal reflux disease) High cholesterol History of non-ST elevation myocardial infarction (NSTEMI) (03/28/20) History of stress test Hodgkin disease Hyperlipidemia Hypertension Hypothyroidism Lactic acidosis Morbid obesity with BMI of 45.0-49.9, adult Nephrolithiasis Non-smoker Obesity KIANNA (obstructive sleep apnea) Polyneuropathy due to type 2 diabetes mellitus Sleep apnea TIA (transient ischemic attack) (2019) Vision loss of left eye Vision loss of right eye Home Medications levothyroxine 125 mcg PO DAILY 05/03/15 [History Last Taken 06/19/21 07:00] pantoprazole 40 mg PO DAILY 05/03/15 [History Last Taken 06/19/21 07:00] tamsulosin 0.4 mg PO DAILY 09/08/15 [History Last Taken 06/19/21 07:00] buspirone 10 mg PO TID PRN 04/17/18 [History Last Taken 06/19/21 07:00] duloxetine 60 mg PO DAILY 04/17/18 [History Last Taken 06/19/21 07:00] atorvastatin 80 mg PO QHS #30 tab 04/19/18 [Rx Last Taken 06/18/21] aspirin 81 mg PO DAILY@0800 tab.chew 03/30/20 [Rx Last Taken 06/19/21 07:00] 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 meter,continuous #1 ea 07/26/20 [Rx Last Taken Unknown] metformin 500 mg tablet,extended release 24 hr 1,000 mg PO QHS tab 10/13/20 [History Last Taken 06/18/21] metoprolol succinate 100 mg tablet,extended release 24 hr 100 mg PO DAILY #90 tab 10/19/20 [Rx Last Taken 06/19/21 07:00] pen needle, diabetic 31 gauge x 5/16 #1200 ea 12/22/20 [History Last Taken Unknown] glimepiride 4 mg tablet 4 mg PO BID #180 tab 02/02/21 [Rx Last Taken 06/19/21 07:00] insulin glargine U-300 conc [Vania SolCatalinaar U-300 Insulin] 55 unit SUBCUT DAILY 02/26/21 [History Last Taken 06/19/21 07:00] hydrochlorothiazide 25 mg tablet 25 mg PO DAILY #90 tab 04/03/21 [Rx Last Taken 06/19/21 07:00] lisinopril 40 mg tablet 40 mg PO DAILY #90 tab 04/03/21 [Rx Last Taken 06/19/21 07:00] apixaban 5 mg tablet 5 mg PO BID #60 tab 05/10/21 [Rx Last Taken 06/19/21 07:00] Trulicity 0.75 mg/0.5 mL subcutaneous pen injector 0.75 mg SUBCUT QWEEK #2 ml NS 06/01/21 [Rx Last Taken Unknown] 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 sensor #3 ea 06/01/21 [Rx Last Taken Unknown] 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 transmitter #1 ea 06/01/21 [Rx Last Taken Unknown] pen needle, diabetic 32 gauge x #150 ea 06/01/21 [Rx Last Taken Unknown] Allergy/AdvReac Type Severity Reaction Status Date / Time metoclopramide HCl Allergy Anaphylaxis Verified 06/01/21 13:33 [From Reglan] Family History Brother Heart disease Other Alcohol abuse Arthritis CVA (cerebral vascular accident) Diabetes ulcer disease Surgical History History of left heart catheterization (2009) History of thoracentesis (2015) Hx of nephrolithotomy with removal of calculi Social History (Updated 06/19/21 @ 11:[address] Eleni Alfredo MD) household members: spouse and none Smoking Status: Never smoker alcohol intake: never substance use type: does not use what type of physical activity do you participate in: none ROS ROS Narrative Constitutional: Denies: Anorexia, Chills, Fever, Night Sweats, Weight Change Eyes: Denies: Blurred vision, Cataracts, Conjunctivae Inflammation, Pain, Redness, Vision Change HEENT: Denies: Difficulty Hearing, Difficulty Swallowing, Head Aches, Hearing Changes, Sinus Congestion, Sinus Drainage Cardiovascular: See HPI Respiratory: Denies: Cough, Shortness of breath at rest, Sputum production Gastrointestinal: Denies: Abdominal Pain, Nausea, Vomiting Genitourinary: Denies: Dysuria Musculoskeletal: Denies: Joint Pain, Joint stiffness, Joint swelling, Joint Tenderness Skin: Denies: Rash, Wounds Neurological: Denies: Numbness, Tingling, Focal weakness Vital Signs Vital Signs Vital Signs: 06/19/21 07:08 06/19/21 07:12 06/19/21 07:50 Temperature 97.6 F L Temperature Source Oral Pulse Rate 79 Respiratory Rate 24 H Respiratory Effort Short of Breath Respiratory Depth Deep Respiratory Pattern Tachypnea Blood Pressure 202/96 H Blood Pressure Mean 131 Pulse Ox 98 98 Oxygen Delivery Method Nasal Cannula Room Air Nasal Cannula Oxygen Flow Rate (L/min) 1 1 Weight Weight: 138 kg Body Mass Index (BMI) 44.9 Physical Exam Narrative Physical exam: General: Alert, Oriented x3, Cooperative, No apparent distress, obese HEENT: Atraumatic Oral: Moist Mucosa Neck: Supple Lungs: Diminished to auscultation, few fine crackles at the bases especially on the right Cardiovascular: HS I+II, regular, no murmurs Abdomen: Bowel Sounds Present, Soft, Non Tender Extremities: No edema Skin: No rashes, No breakdown Neurological: Grossly intact Psych/Mental Status: Appropriate Results Lab / Micro Data Result Diagrams: 06/19/21 07:45 06/19/21 07:45 Labs: Laboratory Results - last 24 hr 06/19/21 07:45: WBC 7.4, RBC 4.54 L, Hgb 12.0 L, Hct 36.2 L, MCV 79.7 L, MCH 26.4 L, MCHC 33.1, RDW Std Deviation 43.1, RDW Coeff of Gavi 15.0 H, Plt Count 216, MPV 9.7, Immature Gran % (Auto) 0.500, Neut % (Auto) 69.5, Lymph % (Auto) 17.3 L, [place] % (Auto) 9.6, Eos % (Auto) 2.6, Baso % (Auto) 0.5, Absolute Neuts (auto) 5.1, Absolute Lymphs (auto) 1.28, Nucleated RBC % 0 06/19/21 07:45: Sodium 137, Potassium 3.9, Chloride 104, Carbon Dioxide 26.0, Anion Gap 7, BUN 14, Creatinine 0.96, Estim Creat Clear Calc 84.90, Est GFR (MDRD) Af Amer 104, Est GFR (MDRD) Non-Af 86, BUN/Creatinine Ratio 14.6, Glucose 191 H, Calcium 8.8, Troponin I High Sens 46 06/19/21 07:45: Lactic Acid 2.2 H* 06/19/21 07:45: B-Natriuretic Peptide 155.0 H 06/19/21 09:00: Urine Color Yellow, Urine Clarity Clear, Urine pH 6.0, Ur Specific [place] 1.015, Urine Protein 30 H, Urine Glucose (UA) Normal, Urine Ketones Negative, Urine Occult Blood Negative, Urine Nitrite Negative, Urine Bilirubin Negative, Urine Urobilinogen Normal, Ur Leukocyte Esterase Negative, Urine RBC 0 SEEN, Urine WBC 0 SEEN, Ur Squamous Epith Cells 0 SEEN, Urine Bacteria 0 SEEN, Urine Mucus 0 SEEN Radiology Impression Chest X-Ray 06/19/21 07:48 IMPRESSION: 1. Mild vascular congestion, interstitial thickening/edema and trace effusion suggesting fluid overload/CHF. Electronically Signed: Eze Dasilva MD (Brooks) at 8:02 EDT Reading Location ID and State: [address] [place] [address] , Service support , Assessment & Plan Assessment/Plan (1) Acute respiratory failure with hypoxia: (2) New onset of congestive heart failure: PLAN: 1. Acute hypoxic respiratory failure likely secondary to acute CHF Patient has hypoxia on exertion, currently on 2 L of oxygen Encourage use of incentive spirometer, wean off oxygen 2. Acute exacerbation of heart failure with preserved EF, EF of 60% stage I diastolic dysfunction noted on 2D echo in 2018 Admitting BNP was 155, patient is morbidly obese Continue on IV Lasix, CHF protocol Repeat 2D echo 3. Accelerated Hypertension, history of hypertension, denies noncompliance Continue on lisinopril, metoprolol, hydralazine as needed 4. Paroxysmal atrial fibrillation, now in normal sinus rhythm, continue on metoprolol, apixaban 5. Type 2 DM, on Trulicity, Metformin, glipizide, Lantus Will hold Trulicity and Metformin Continue on glipizide and Lantus, insulin sliding scale with blood glucose checks 6. Anxiety/depression, stable, continue on buspirone 7. KIANNA on CPAP 8. Hyperlipidemia, continue on statin 9. Hypothyroidism, continue Synthroid 10. Morbid obesity, BMI is 44.3, complicates care and recovery I discussed and explained in details the various types of CODE STATUS-full code, DNR CCA, DNR CC. Patient chose to be full code and wants everything done to keep him alive in the event of a cardiopulmonary arrest. Time spent discussing CODE STATUS 16 minutes Charges/Coding Visit Charges Inpatient E&M: 16689 Init Hosp L3 Procedures Hospitalists Procedures: 80997 Advncd Care Plan 30 Min
[2021-06-19 09:44] LABS: Troponin-I HS 50 pg/mL (3.0-78.0)
[2021-06-19] MEDS: Furosemide 20 MG/2 ML VIAL IV (09:48)
[2021-06-19] MEDS: Nitroglycerin Oint 1 INCH PACKET TD (09:48)
--- NOTE | 2021-06-19 09:57 | CASEMGMT ---
RN CM Assessment Introduced role of RN CM to patient.? Patient is alert, oriented and able?to participate in RN CM Assessment. ?Care providers, pharmacy, and demographics verified. Admit Dx: IP for Hypoxia. New Onset CHF? Re-Admit: No Barriers/Issues: None PCP: Radha Khan Specialists: [facility]erred [facility] Insurance: [employer] Rx Benefit:?Yes LNOK: Michaelle Grant LW/HPOA: States has a LW and HPOA is Michaelle Grant. States should be on file at [facility]. This press writer did not note it on file. Living Arrangements:? Lives with and mother in law who is on hospice lives there, adult children and grandchildren live there. ADL?s: Independent with ambulation and ADLs Transportation: Both patient and drive, does not drive much d/t back pain but can drive. DME: Has not used Cpap since 2016. Has Dexcom- currently on him in hospital. HHC: None SNF: None Goal: home and does not have any issues, concerns, or needs with going home at this time. Aware RNCM will continue to follow should any needs arise. DC PLAN: Home and no anticipated needs identified at this time. LEATHA Navarrete
--- NOTE | 2021-06-19 10:36 | ECHOCS_ITS ---
Version 2 Reason For Study: DYSPNEA/SOB Procedure This was a 2D Doppler, Color Flow transthoracic echocardiogram. The study was technically difficult. Due to body habitus. Contrast injection was performed. Exam performed portable in patient room. Left Ventricle Moderately dilated left ventricle. Left ventricular systolic function is normal. The estimated ejection fraction is 65 %. Stage 1 diastolic dysfunction. No regional wall motion abnormalities noted. Right Ventricle Normal RV size. Normal systolic function. Atria The left atrium is severely enlarged. Tricuspid Valve Normal tricuspid valve. Aortic Valve The aortic valve is not well visualized. Pulmonic Valve The pulmonic valve is not well visualized. Great Vessels Normal aortic root. Pericardium/Pleural No pericardial effusion. Medication Diluted definity 4.0ml given slow IV push to enhance endocardial definition. MMode/2D Measurements & Calculations LVIDd: 6.3 cm IVSd: 1.1 cm Ao root diam: 3.9 cm LVIDs: 5.0 cm LVPWd: 1.1 cm FS: 19.7 % LAV(MOD-sp4): 132.2 ml LA A4 area: 35.4 cm2 LA dimension(2D): 4.9 cm Time Measurements MV dec time: 0.18 sec Doppler Measurements & Calculations MV E max chin: 80.9 cm/sec Lat Peak E' Chin: 8.8 cm/sec Med Peak E' Chin: 5.8 cm/sec MV A max chin: 91.0 cm/sec E/E' lat: 9.2 E/E' med: 13.9 MV E/A: 0.89 Ao V2 max: 156.9 cm/sec LV V1 max: 101.1 cm/sec PA V2 max: 101.7 cm/sec Ao max P.8 mmHg LV V1 max P.1 mmHg ECHO/Echo Complete W/ Contrast Interpretation Summary Moderately dilated left ventricle. Left ventricular systolic function is normal. The estimated ejection fraction is 65 %. Stage 1 diastolic dysfunction. Contrast injection was performed. Ordering Physician: Eleni Alfredo Referring Physician: Radha Khan Performed By: Bijal Faust, DIANA, RVT
[2021-06-19 11:52] LABS: Reflex Lactate? Y
[2021-06-19] MEDS: Insulin Lispro 100 UNIT/ML INSULN.PEN SC ×3 (13:38→21:55)
[2021-06-19] MEDS: Furosemide 40 MG/4 ML Vial IV ×2 (13:39→21:56)
[2021-06-19 14:00] LABS: Troponin-I HS 31 pg/mL (3.0-78.0)
[2021-06-19 14:03] LABS: Lactic Acid 2.1 mmol/L (0.4-1.9)
--- NOTE | 2021-06-19 15:42 | CHAPLAIN ---
Type of Pastoral Visit _x__ Initial Visit ___ Follow-up Visit ___ On-call Visit ___ General Patient Visit ___ Spiritual Assessment ___ Family Conference ___ Bereavement ___ Rapid Response ___ Code Blue ___ Other (describe below) Pastoral Care Referral From _x__ Patient ___ Family ___ Nurse ___ Physician ___ Director Of Income Tax ___ Spring Former ___ Other (describe below) Sacrament/Intervention _x__ Active listening ___ Anointing ___ Christian ___ Bereavement ___ Communion ___ Mary exploration ___ _x__ Life review _x__ Prayer ___ Reconciliation ___ Sacrament of Sick ___ Supportive presence ___ Wedding ___ Other (describe below) Pastoral Comments patient was having some tests earlier but is in the room and available now; pt speaks of his recent health concerns and wanted to get checked out; pt mostly waiting for answers and direction about his health; pt used to be active in the [employer] alevism but not so much recently due to family matters; pt does want prayer support and welcomes time to talk
[2021-06-19] MEDS: Atorvastatin Calcium 80 MG Tablet PO (21:58)
[2021-06-19] MEDS: APIXABAN 5 MG TABLET PO (22:05)
[2021-06-20] VITALS (7 sets, daily range): BP systolic 154–158; BP diastolic 82; PULSE 78–90; RESP 18; TEMP 36.4–36.6; O2SAT 95–97
[2021-06-20] MEDS: Levothyroxine 125 MCG Tablet PO (06:35)
[2021-06-20] MEDS: Insulin Lispro 100 UNIT/ML INSULN.PEN SC ×2 (06:36→11:20)
[2021-06-20] MEDS: Metoprolol(XL)Succ 100 MG Tablet PO (08:49)
[2021-06-20] MEDS: Tamsulosin HCl 0.4 MG Capsule PO (08:49)
[2021-06-20] MEDS: APIXABAN 5 MG TABLET PO (08:49)
[2021-06-20] MEDS: DULoxetine Hcl 60 MG Capsule PO (08:49)
[2021-06-20] MEDS: Pantoprazole Sodium 40 MG Tablet PO (08:50)
[2021-06-20] MEDS: Aspirin 81 MG TAB.CHEW PO (08:50)
[2021-06-20] MEDS: Lisinopril 40 MG Tablet PO ×2 (08:50)
[2021-06-20] MEDS: Insulin Glargine-YFGN 100 UNIT/ML Pen 55 UNIT SC (08:51)
[2021-06-20] MEDS: Furosemide 40 MG/4 ML Vial IV (08:52)
--- NOTE | 2021-06-20 11:11 | PCM.DC ---
Discharge Instructions Diet Discharge Diet: 1800 Calorie Control Diet Activity Discharge Activity: Return to Normal Activity Weight Bearing Status: Full weight bearing Follow Up Care Test Results: Test results from this visit will be discussed in further detail at your follow-up appointment, if applicable. Discharge Plan Admission Admit Date/Time: 06/19/21 09:16 Primary Reason for Your Visit: CHF, hypoxia Attending Provider: Cas Pate Primary Care Provider: Radha Khan Instructions Additional Instructions / Restrictions: See your primary care physician within one week-you may need your blood pressure medicines adjusted Discharge Orders/Prescriptions Prescriptions: New furosemide [Lasix] 40 mg tablet 40 mg PO DAILY Qty: 30 RF: 0 potassium chloride 10 mEq tablet extended release 20 meq PO DAILY Qty: 60 RF: 0 Continued (DME) Dexcom G6 Business Process Consultant Misc See Rx Instructions .ROUTE .MEDSUPPLY Qty: 1 RF: 0 (DME) pen needle, diabetic 31 gauge x 5/16 needle See Rx Instructions ea .ROUTE .MEDSUPPLY Qty: 1200 RF: 0 glimepiride 4 mg tablet 4 mg PO BID Qty: 180 RF: 3 (DME) Dexcom G6 Sensor Device See Rx Instructions .ROUTE .MEDSUPPLY Qty: 3 RF: 6 Trulicity 0.75 mg/0.5 mL pen injector 0.75 mg subcut QWEEK Qty: 2 RF: 0 (DME) pen needle, diabetic [BD Ultra-Fine Kiki Pen Needle] 32 gauge x 5/32 needle See Rx Instructions .ROUTE .MEDSUPPLY Qty: 150 RF: 6 (DME) Dexcom G6 Transmitter Device See Rx Instructions .ROUTE .MEDSUPPLY Qty: 1 RF: 3 pantoprazole 40 MG tablet 40 mg PO DAILY RF: 0 levothyroxine 125 MCG tablet 125 mcg PO DAILY RF: 0 tamsulosin 0.4 MG capsule 0.4 mg PO DAILY RF: 0 buspirone 10 MG tablet 10 mg PO TID PRN RF: 0 duloxetine 60 MG capsule,delayed release(DR/EC) 60 mg PO DAILY RF: 0 atorvastatin 80 MG tablet 80 mg PO QHS Qty: 30 RF: 0 metformin 500 mg tablet extended release 24 hr 1,000 mg PO QHS RF: 0 aspirin 81 MG tablet,chewable 81 mg PO DAILY@0800 RF: 0 Toujeo SoloStar U-300 Insulin 300 unit/mL (1.5 mL) insulin pen 55 unit SUBCUT DAILY RF: 0 metoprolol succinate 100 mg tablet extended release 24 hr 100 mg PO DAILY Qty: 90 RF: 3 lisinopril 40 mg tablet 40 mg PO DAILY Qty: 90 RF: 3 apixaban 5 mg tablet 5 mg PO BID Qty: 60 RF: 11 Discontinued hydrochlorothiazide 25 mg tablet 25 mg PO DAILY Qty: 90 RF: 3 Referrals / Follow Up: Radha Khan MD [Primary Care Provider] - Within 1 Week JacquesSumanth olivas MD [STAFF PHYSICIAN] - See Referral Note (call for appointment to be seen within the next 3 weeks) Disposition Disposition (needs filled in before D/C Order can be placed): Home, Self Care
--- NOTE | 2021-06-20 11:43 | CASEMGMT ---
Per Sami JENSEN, pt does not qualify for home oxygen at discharge. Pt states no further concerns with going home at time of discharge. Rhona JENSEN CM
--- NOTE | 2021-06-20 19:23 | PCM.DC.SUM ---
Providers Date of Admission: 06/19/21 Date of Discharge: 06/20/21 Primary Care Physician: Dr. Radha Khan MD Reason For Visit: HYPOXIA Diagnosis Discharge Diagnosis (1) Acute respiratory failure with hypoxia: Status: Resolved Code(s): J96.01 - Acute respiratory failure with hypoxia (2) New onset of congestive heart failure: Status: Acute Code(s): I50.9 - Heart failure, unspecified Plan: 1. Acute hypoxic respiratory failure secondary to acute CHF #2 acute exacerbation of heart failure with preserved ejection fraction #3 Hypertensive urgency #4 paroxysmal atrial fib #5 type 2 diabetes #6 hyperlipidemia #7 morbid obesity Medications at Discharge Home Medications levothyroxine 125 mcg PO DAILY 05/03/15 pantoprazole 40 mg PO DAILY 05/03/15 tamsulosin 0.4 mg PO DAILY 09/08/15 buspirone 10 mg PO TID PRN 04/17/18 duloxetine 60 mg PO DAILY 04/17/18 atorvastatin 80 mg PO QHS #30 tab 04/19/18 aspirin 81 mg PO DAILY@0800 tab.chew 03/30/20 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 meter,continuous #1 ea 07/26/20 metformin 500 mg tablet,extended release 24 hr 1,000 mg PO QHS tab 10/13/20 metoprolol succinate 100 mg tablet,extended release 24 hr 100 mg PO DAILY #90 tab 10/19/20 pen needle, diabetic 31 gauge x 08/14 #1200 ea 12/22/20 glimepiride 4 mg tablet 4 mg PO BID #180 tab 02/02/21 Toumanjinder SoloStar U-300 Insulin 55 unit SUBCUT DAILY 02/26/21 lisinopril 40 mg tablet 40 mg PO DAILY #90 tab 04/03/21 apixaban 5 mg tablet 5 mg PO BID #60 tab 05/10/21 Trulicity 0.75 mg/0.5 mL subcutaneous pen injector 0.75 mg SUBCUT QWEEK #2 ml NS 06/01/21 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 sensor #3 ea 06/01/21 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 transmitter #1 ea 06/01/21 pen needle, diabetic 32 gauge x #150 ea 06/01/21 furosemide [Lasix] 40 mg PO DAILY #30 tab 06/20/21 potassium chloride 20 meq PO DAILY #60 tab 06/20/21 Hospital Course Operations None Procedures 2-D Echocardiogram Summary of Care Provided Minutes Spent on Discharge: 32 Hospital Course: This 55-year-old white male presented to the emergency room at [facility] with chief complaint of progressive dyspnea over several months. Work-up in the emergency room revealed the patient have an elevated blood pressure 202/96, pulse ox was 98% on room air, pulse ox fell to 79% on exertion at room air. Beta natruretic peptide was 155, chest x-ray showed mild vascular congestion and interstitial thickening with edema suggestive of acute CHF. Patient was admitted to PCU, he was placed on IV diuretics, he had a 2D echocardiogram performed which showed normal EF and no significant valvular heart disease. Patient's blood pressure became under control. On 06/20/2021, patient was seen and examined: On examination he appeared in good health and spirits. Vital signs as documented. Skin warm and dry and without overt rashes. Neck without JVD, neck was supple, trachea midline, thyroid was normal. Lungs clear bilaterally, normal air movement was noted. Heart exam notable for regular rhythm, normal sounds and absence of murmurs, rubs or gallops. Abdomen unremarkable and without evidence of organomegaly, masses, or abdominal aortic enlargement. Bowel sounds are present, abdomen is not distended. Extremities nonedematous, no cyanosis was noted, no clubbing was noted. Neuro: Cranial nerves II through XII are grossly intact, no focal motor deficits were noted, sensation to light touch and pinprick intact, motor exam 5/5 throughout. Psych: Patient is alert and oriented x3, he does not appear anxious or depressed, he does not appear agitated. Patient appeared to be stable for discharge on 06/20/2021, he was to follow-up with cardiology as an outpatient. Weight / BMI Weight Weight: 132 kg Body Mass Index (BMI) 44.3 ABG / Lab / Microbiology Data Result Diagrams: 06/19/21 07:45 06/19/21 07:45 D/C Instructions Discharge Diet: 1800 Calorie Control Diet Weight Bearing Status: Full weight bearing Meaningful Use Info Meaningful Use Diagnoses (Choose all that apply): CHF CHF ISABEL/ARB ordered at discharge?: Yes Documented LVEF (%): 65 Discharge Plan Admission Admit Date/Time: 06/19/21 09:16 Primary Reason for Your Visit: CHF, hypoxia Attending Provider: Cas Pate Primary Care Provider: Radha Khan Instructions Additional Instructions / Restrictions: See your primary care physician within one week-you may need your blood pressure medicines adjusted Patient Problems: Altered Health Status related to Hospitalization Patient Goals: *Optimal Level of Health *Keep Appointments *Medication Compliance *Remain Safe Discharge Orders/Prescriptions Prescriptions: New furosemide [Lasix] 40 mg tablet 40 mg PO DAILY Qty: 30 RF: 0 potassium chloride 10 mEq tablet extended release 20 meq PO DAILY Qty: 60 RF: 0 Continued (DME) Dexcom G6 High School Coach Misc See Rx Instructions .ROUTE .MEDSUPPLY Qty: 1 RF: 0 (DME) pen needle, diabetic 31 gauge x 5/16 needle See Rx Instructions ea .ROUTE .MEDSUPPLY Qty: 1200 RF: 0 glimepiride 4 mg tablet 4 mg PO BID Qty: 180 RF: 3 (DME) Dexcom G6 Sensor Device See Rx Instructions .ROUTE .MEDSUPPLY Qty: 3 RF: 6 Trulicity 0.75 mg/0.5 mL pen injector 0.75 mg subcut QWEEK Qty: 2 RF: 0 (DME) pen needle, diabetic [BD Ultra-Fine Kiki Pen Needle] 32 gauge x 5/32 needle See Rx Instructions .ROUTE .MEDSUPPLY Qty: 150 RF: 6 (DME) Dexcom G6 Transmitter Device See Rx Instructions .ROUTE .MEDSUPPLY Qty: 1 RF: 3 pantoprazole 40 MG tablet 40 mg PO DAILY RF: 0 levothyroxine 125 MCG tablet 125 mcg PO DAILY RF: 0 tamsulosin 0.4 MG capsule 0.4 mg PO DAILY RF: 0 buspirone 10 MG tablet 10 mg PO TID PRN RF: 0 duloxetine 60 MG capsule,delayed release(DR/EC) 60 mg PO DAILY RF: 0 atorvastatin 80 MG tablet 80 mg PO QHS Qty: 30 RF: 0 metformin 500 mg tablet extended release 24 hr 1,000 mg PO QHS RF: 0 aspirin 81 MG tablet,chewable 81 mg PO DAILY@0800 RF: 0 Toumanjinder SoloStar U-300 Insulin 300 unit/mL (1.5 mL) insulin pen 55 unit SUBCUT DAILY RF: 0 metoprolol succinate 100 mg tablet extended release 24 hr 100 mg PO DAILY Qty: 90 RF: 3 lisinopril 40 mg tablet 40 mg PO DAILY Qty: 90 RF: 3 apixaban 5 mg tablet 5 mg PO BID Qty: 60 RF: 11 Discontinued hydrochlorothiazide 25 mg tablet 25 mg PO DAILY Qty: 90 RF: 3 Referrals / Follow Up: Radha Khan MD [Primary Care Provider] - 06/27/21 4:00 pm Sumanth Hanna MD [STAFF PHYSICIAN] - 07/12/21 3:30 pm (call for appointment to be seen within the next 3 weeks) Disposition Disposition (needs filled in before D/C Order can be placed): Home, Self Care Charges/Coding Visit Charges Inpatient E&M: 22626 Disch Hosp
== END 2021-06-20 13:08 | disposition home or self-care (01) | DRG 291 ==
LOC: ED 08:56 → PCU 09:48
PROVIDERS: Admitting Provider Internal Medicine; Emergency Provider Emergency Medicine; PCP Family Medicine; Visit Provider Internal Medicine
DX: I11.0 Hypertensive heart disease with heart failure (principal); J96.01 Acute respiratory failure with hypoxia; I50.33 Acute on chronic diastolic (congestive) heart failure; Z68.41 Body mass index [BMI] 40.0-44.9, adult; E11.42 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 with diabetic polyneuropathy; E66.01 Morbid (severe) obesity due to excess calories; I48.0 Paroxysmal atrial fibrillation; Z79.4 Long term (current) use of insulin; E03.9 Hypothyroidism, unspecified; E78.5 Hyperlipidemia, unspecified; I10 Essential (primary) hypertension; G47.33 Obstructive sleep apnea (adult) (pediatric); I16.0 Hypertensive urgency; I25.2 Old myocardial infarction; F32.A Depression, unspecified; Z79.01 Long term (current) use of anticoagulants; Z79.82 Long term (current) use of aspirin; Z79.84 Long term (current) use of oral hypoglycemic drugs; Z79.899 Other long term (current) drug therapy; Z86.73 Personal history of transient ischemic attack (TIA), and cerebral infarction without residual deficits
CPT/HCPCS: 71046; 80048; 81001; 83605; 83880; 84484; 85025; 93005; 93306; 99285; Q9957; A4216; C8929; J1940

== ENCOUNTER 2021-07-12 16:25 | Outpatient (CLI) | payer OTHER, SELFPAY ==
[2021-07-12 17:12] LABS: Absolute Neutrophil Count 5.1 X10^3/uL (2.0-7.7); Basophil# 0.07 X10^3/uL; Basophil% 0.9 % (0-1); Eosinophil# 0.46 X10^3/uL; Eosinophils% 5.6 % (0-5); Hematocrit 34.7 % (40-54); Hemoglobin 11.1 g/dL (13.0-16.5); Mean Corpuscular Hgb 25.8 pg (27.0-32.0); Mean Corpuscular Volume 80.5 fL (80-94); Mean Platelet Vol. 10.2 fl (6.2-12.0); Monocyte# 0.76 X10^3/uL; Monocyte% 9.3 % (0-10); NRBC Flagged by Analyzer 0 % (0-5); Neutrophil # 5.07 X10^3/uL (2.7-7.7); Neutrophil % 61.8 % (47-70); Platelet Count 223 K/mm3 (150-450); RBC Distribution Width CV 15.9 % (11.6-14.6); RBC Distribution Width SD 45.5 fl (35.1-43.9); Red Blood Count 4.31 M/mm3 (4.6-6.2); White Blood Count 8.2 K/mm3 (4.4-11.0)
[2021-07-12 17:41] LABS: BNP,B-Type NATRIURETIC PEPTIDE 93.4 pg/mL (0-100)
[2021-07-12 17:45] LABS: Anion Gap 8 (5-15); BUN 22 mg/dL (7-18); Calcium,Total 8.6 mg/dL (8.5-10.1); Chloride 103 mmol/L (98-107); EST Glomerular Filtration Rate 82 mL/min (>60); Est Glom Filt Rate - Afr Amer 99 mL/min (>60); Glucose 182 mg/dL (74-106); Potassium 3.6 mmol/L (3.5-5.1); Sodium Level 135 mmol/L (136-145)
[2021-07-12 17:57] LABS: Thyroid Stim Hormone (TSH) 1.06 uIU/mL (0.358-3.74)
== END 2021-07-12 23:59 | disposition home or self-care (01) ==
PROVIDERS: PCP Family Medicine; Referring Provider Internal Medicine Cardiovascular Disease; Visit Provider Internal Medicine Cardiovascular Disease
DX: R06.02 Shortness of breath (principal); I48.0 Paroxysmal atrial fibrillation; I10 Essential (primary) hypertension
CPT/HCPCS: 36415; 80048; 83880; 84443; 85025

== ENCOUNTER 2021-07-16 14:16 | Emergency (ER) | payer OTHER, SELFPAY ==
[2021-07-16 14:17] VITALS: BP 111/70; PULSE 78; RESP 16; TEMP 36.4; O2SAT 98; BMI 44.9
--- NOTE | 2021-07-16 14:46 | EKG12_ITS ---
Test Reason : DIZZINESS Blood Pressure : / mmHG Vent. Rate : 073 BPM Atrial Rate : 073 BPM P-R Int : 162 ms QRS Dur : 108 ms QT Int : 442 ms P-R-T Axes : 010 -10 028 degrees QTc Int : 486 ms Normal sinus rhythm Voltage criteria for left ventricular hypertrophy Inferior infarct , age undetermined, cannot be excluded Abnormal ECG Confirmed by RICHIE MCRAE, ALESSIA ([id number]), dictionary editor BETHEL ROONEY ([id number]) on 07/19/2021 8:49:51 AM Referred By: JOSÉ ANTONIO Confirmed By:ALESSIA QUIROZ MD
--- NOTE | 2021-07-16 14:55 | EX.ED.DYSGE1 ---
HPI History of Present Illness Chief Complaint: Dizziness Informant: patient Narrative Narrative: 55-year-old male states that he had just finished his Easter lunch and was sitting down. He began to have some abdominal discomfort and nausea and began sweating. Family stated he looked pale. He states he felt like he was going to need to have a bowel movement so he got up and was very lightheaded. He made it to the bathroom and had a bowel movement. When he came out of the bathroom he was still diaphoretic and needed to lay down. He states he has had this happen before. He notes a history of congestive heart failure and atrial fibrillation. He denied any chest pain palpitations or shortness of breath. [facility] Medical History Acute kidney injury Anemia Anxiety Anxiety and depression Atrial fibrillation Atrial fibrillation with RVR (03/28/20) BPH (benign prostatic hyperplasia) Cancer Current use of insulin Depression Diabetes Diabetes mellitus, type II Dyspnea Essential (primary) hypertension GERD (gastroesophageal reflux disease) High cholesterol History of non-ST elevation myocardial infarction (NSTEMI) (03/28/20) Hodgkin disease Hyperlipidemia Hypertension Hypothyroidism Lactic acidosis Morbid obesity with BMI of 45.0-49.9, adult Nephrolithiasis Non-smoker Obesity KIANNA (obstructive sleep apnea) Polyneuropathy due to type 2 diabetes mellitus Sleep apnea TIA (transient ischemic attack) (2019) Vision loss of left eye Vision loss of right eye Home Medications levothyroxine 125 mcg PO DAILY 05/03/15 [History Last Taken 06/19/21 07:00] pantoprazole 40 mg PO DAILY 05/03/15 [History Last Taken 06/19/21 07:00] tamsulosin 0.4 mg PO DAILY 09/08/15 [History Last Taken 06/19/21 07:00] buspirone 10 mg PO TID PRN 04/17/18 [History Last Taken 06/19/21 07:00] duloxetine 60 mg PO DAILY 04/17/18 [History Last Taken 06/19/21 07:00] atorvastatin 80 mg PO QHS #30 tab 04/19/18 [Rx Last Taken 06/18/21] aspirin 81 mg PO DAILY@0800 tab.chew 03/30/20 [Rx Last Taken 06/19/21 07:00] 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 meter,continuous #1 ea 07/26/20 [Rx Last Taken Unknown] metformin 500 mg tablet,extended release 24 hr 1,000 mg PO QHS tab 10/13/20 [History Last Taken 06/18/21] metoprolol succinate 100 mg tablet,extended release 24 hr 100 mg PO DAILY #90 tab 10/19/20 [Rx Last Taken 06/19/21 07:00] pen needle, diabetic 31 gauge x 5/16 #1200 ea 12/22/20 [History Last Taken Unknown] glimepiride 4 mg tablet 4 mg PO BID #180 tab 02/02/21 [Rx Last Taken 06/19/21 07:00] Toujeo SoloStar U-300 Insulin 55 unit SUBCUT DAILY 02/26/21 [History Last Taken 06/19/21 07:00] lisinopril 40 mg tablet 40 mg PO DAILY #90 tab 04/03/21 [Rx Last Taken 06/19/21 07:00] apixaban 5 mg tablet 5 mg PO BID #60 tab 05/10/21 [Rx Last Taken 06/19/21 07:00] 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 sensor #3 ea 06/01/21 [Rx Last Taken Unknown] 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 transmitter #1 ea 06/01/21 [Rx Last Taken Unknown] pen needle, diabetic 32 gauge x 5/32 #150 ea 06/01/21 [Rx Last Taken Unknown] furosemide [Lasix] 40 mg PO DAILY #30 tab 06/20/21 [Rx Last Taken Unknown] potassium chloride 20 meq PO DAILY #60 tab 06/20/21 [Rx Last Taken Unknown] Allergy/AdvReac Type Severity Reaction Status Date / Time metoclopramide HCl Allergy Anaphylaxis Verified 07/16/21 14:19 [From [facility]] Family History Brother Heart disease Other Alcohol abuse Arthritis CVA (cerebral vascular accident) Diabetes ulcer disease Surgical History History of left heart catheterization (2009) History of thoracentesis (2015) Hx of nephrolithotomy with removal of calculi Social History household members: spouse and none Smoking Status: Never smoker Electronic Cigarette Use: not used second hand exposure: No alcohol intake: never substance use type: does not use what type of physical activity do you participate in: none ROS ROS ED Constitutional Constitutional ED: Denies chills, fever(s) or weight loss Eyes Eyes: Denies change in vision or diplopia ENT ENT ED: Denies ear pain, rhinorrhea or sore throat Cardiovascular Cardiovascular: Denies chest pain, orthopnea, palpitations or racing heartbeat Respiratory/Chest Respiratory/Chest: Denies cough, dyspnea or orthopnea Gastrointestinal Gastrointestinal: Denies abdominal pain, diarrhea, nausea or vomiting Genitourinary Genitourinary ED: Denies dysuria, hematuria or urinary frequency Musculoskeletal Musculoskeletal: Denies arthralgias or myalgias Integumentary Denies abscess or rash Neurologic Neurologic: Denies headache(s) or weakness Psychiatric Psychiatric: Denies anxiety, depression, suicidal ideation or suicidal thoughts Endocrine Endocrinology: Denies polydipsia, polyphagia or polyuria Allergic/Immunologic Allergic/Immunologic ED: Denies mouth swelling, tongue swelling or urticaria EXAM Physical Exam Const Vital Signs: 07/16/21 14:17 Temperature 97.6 F L Temperature Source Temporal Pulse Rate 78 Respiratory Rate 16 Blood Pressure 111/70 Blood Pressure Mean 83 Pulse Ox 98 Oxygen Delivery Method Room Air Positive well nourished, well developed and obese General Appearance ED: well developed Nutritional Appearance: obese HEENT Reports normocephalic, head/scalp atraumatic, TM's clear and moist mucous membranes Negative for trauma Tympanic Membrane ED: Yes TM's clear Eyes PERRL and EOMs intact bilaterally Neck no lymphadenopathy, supple and no JVD Resp normal respiratory effort and clear to auscultation bilaterally Cardio regular rate, regular rhythm and no murmurs GI normal to inspection, nondistended, normoactive bowel sounds and non-tender Palpation: soft Back/Spine no CVA tenderness and normal ROM Extremity normal to inspection General Extremety ED: Negative for edema General Extremity: Negative for edema Neuro oriented x3 and CN's II-XII intact bilaterally Sensorium / Orientation: alert Motor Exam: strength 5/5 throughout Psych mental status grossly normal Mood & Affect: Negative for depressed or tearful Skin no rashes or lesions noted and no wounds MDM MDM MDM Narrative Medical decision making narrative: Basic blood work showed a BNP of 59 and a troponin of 10. Creatinine 1.26. Hemoglobin 11.8. He has had no events on the monitor. He remained slightly hypertensive. This point patient feels good. I think is reasonable we can discharge him home. I think this was a near vagal episode return if worsening or concerns Lab Data Attestation: I reviewed the patient's lab results. Labs: Laboratory Results - last 24 hr 07/16/21 07/16/21 07/16/21 15:10 15:10 15:10 WBC 8.8 RBC 4.49 L Hgb 11.8 L Hct 37.2 L MCV 82.9 MCH 26.3 L MCHC 31.7 L RDW Std Deviation 47.2 H RDW Coeff of Gavi 15.9 H Plt Count 209 MPV 10.2 Immature Gran % (Auto) 0.300 Neut % (Auto) 76.6 H Lymph % (Auto) 12.5 L Emmet % (Auto) 6.7 Eos % (Auto) 3.2 Baso % (Auto) 0.7 Absolute Neuts (auto) 6.8 Absolute Lymphs (auto) 1.10 Nucleated RBC % 0 Sodium 138 Potassium 3.9 Chloride 105 Carbon Dioxide 24.0 Anion Gap 9 BUN 22 H Creatinine 1.26 Estim Creat Clear Calc 64.68 Est GFR (MDRD) Af Amer 76 Est GFR (MDRD) Non-Af 63 BUN/Creatinine Ratio 17.5 Glucose 283 H Calcium 8.7 Troponin I High Sens 10 B-Natriuretic Peptide 59.2 EKG Initial EKG: Attestation: I personally reviewed and interpreted this EKG as follows: Comments: Normal sinus rhythm with a ventricular rate of 73 bpm. Discharge Plan Triage Chief Complaint: Dizziness ED Provider: Cristhian Garcia Dx/Rx/DC Orders Clinical Impression: Near syncope Instructions: ED Near-Fainting- Vagal Reaction Prescriptions: No Action (DME) Dexcom G6 Bridal Gown Fitter Misc See Rx Instructions .ROUTE .MEDSUPPLY Qty: 1 RF: 0 (DME) pen needle, diabetic 31 gauge x 5/16 needle See Rx Instructions ea .ROUTE .MEDSUPPLY Qty: 1200 RF: 0 glimepiride 4 mg tablet 4 mg PO BID Qty: 180 RF: 3 (DME) Dexcom G6 Sensor Device See Rx Instructions .ROUTE .MEDSUPPLY Qty: 3 RF: 6 (DME) pen needle, diabetic [BD Ultra-Fine Kiki Pen Needle] 32 gauge x 5/32 needle See Rx Instructions .ROUTE .MEDSUPPLY Qty: 150 RF: 6 (DME) Dexcom G6 Transmitter Device See Rx Instructions .ROUTE .MEDSUPPLY Qty: 1 RF: 3 pantoprazole 40 MG tablet 40 mg PO DAILY RF: 0 levothyroxine 125 MCG tablet 125 mcg PO DAILY RF: 0 tamsulosin 0.4 MG capsule 0.4 mg PO DAILY RF: 0 buspirone 10 MG tablet 10 mg PO TID PRN RF: 0 duloxetine 60 MG capsule,delayed release(DR/EC) 60 mg PO DAILY RF: 0 atorvastatin 80 MG tablet 80 mg PO QHS Qty: 30 RF: 0 metformin 500 mg tablet extended release 24 hr 1,000 mg PO QHS RF: 0 aspirin 81 MG tablet,chewable 81 mg PO DAILY@0800 RF: 0 Toujeo SoloStar U-300 Insulin 300 unit/mL (1.5 mL) insulin pen 55 unit SUBCUT DAILY RF: 0 furosemide [Lasix] 40 mg tablet 40 mg PO DAILY Qty: 30 RF: 0 potassium chloride 10 mEq tablet extended release 20 meq PO DAILY Qty: 60 RF: 0 metoprolol succinate 100 mg tablet extended release 24 hr 100 mg PO DAILY Qty: 90 RF: 3 lisinopril 40 mg tablet 40 mg PO DAILY Qty: 90 RF: 3 apixaban 5 mg tablet 5 mg PO BID Qty: 60 RF: 11 Primary Care Provider: Radha Khan Referrals: Radha Khan MD [Primary Care Provider] - As Needed Disposition Disposition: Home, Self Care
[2021-07-16 15:29] LABS: Absolute Neutrophil Count 6.8 X10^3/uL (2.0-7.7); Basophil# 0.06 X10^3/uL; Basophil% 0.7 % (0-1); Eosinophil# 0.28 X10^3/uL; Eosinophils% 3.2 % (0-5); Hematocrit 37.2 % (40-54); Hemoglobin 11.8 g/dL (13.0-16.5); Lymphocyte % 12.5 % (19-41); Mean Corp Hgb Conc 31.7 g/dL (32-36); Mean Corpuscular Hgb 26.3 pg (27.0-32.0); Mean Corpuscular Volume 82.9 fL (80-94); Mean Platelet Vol. 10.2 fl (6.2-12.0); Monocyte# 0.59 X10^3/uL; Monocyte% 6.7 % (0-10); NRBC Flagged by Analyzer 0 % (0-5); Neutrophil # 6.76 X10^3/uL (2.7-7.7); Neutrophil % 76.6 % (47-70); Platelet Count 209 K/mm3 (150-450); RBC Distribution Width CV 15.9 % (11.6-14.6); RBC Distribution Width SD 47.2 fl (35.1-43.9); Red Blood Count 4.49 M/mm3 (4.6-6.2); White Blood Count 8.8 K/mm3 (4.4-11.0)
[2021-07-16 15:48] LABS: Anion Gap 9 (5-15); BUN 22 mg/dL (7-18); BUN/Creat Ratio 17.5 RATIO (10-20); Calcium,Total 8.7 mg/dL (8.5-10.1); Chloride 105 mmol/L (98-107); Creatinine, Serum 1.26 mg/dL (0.70-1.30); EST Glomerular Filtration Rate 63 mL/min (>60); Est Glom Filt Rate - Afr Amer 76 mL/min (>60); Estimated Creatinine Clearance 64.68 ml/min; Glucose 283 mg/dL (74-106); Potassium 3.9 mmol/L (3.5-5.1); Sodium Level 138 mmol/L (136-145); Troponin-I HS 10 pg/mL (3.0-78.0)
[2021-07-16 15:50] LABS: BNP,B-Type NATRIURETIC PEPTIDE 59.2 pg/mL (0-100)
[2021-07-16 16:25] VITALS: BP 155/75; PULSE 73; RESP 18; TEMP 37.1; O2SAT 99
== END 2021-07-16 16:30 | disposition home or self-care (01) ==
PROVIDERS: Emergency Provider Emergency Medicine; PCP Family Medicine; Visit Provider Emergency Medicine
DX: R55 Syncope and collapse (principal); I11.0 Hypertensive heart disease with heart failure; I50.9 Heart failure, unspecified; E11.42 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 with diabetic polyneuropathy; I48.91 Unspecified atrial fibrillation; E66.01 Morbid (severe) obesity due to excess calories; Z68.41 Body mass index [BMI] 40.0-44.9, adult; R42 Dizziness and giddiness; E78.5 Hyperlipidemia, unspecified; R11.0 Nausea; I25.2 Old myocardial infarction; N40.0 Benign prostatic hyperplasia without lower urinary tract symptoms; K21.9 Gastro-esophageal reflux disease without esophagitis; E03.9 Hypothyroidism, unspecified; G47.33 Obstructive sleep apnea (adult) (pediatric); Z79.890 Hormone replacement therapy; Z79.82 Long term (current) use of aspirin; Z79.84 Long term (current) use of oral hypoglycemic drugs; Z79.899 Other long term (current) drug therapy; Z79.01 Long term (current) use of anticoagulants; F41.9 Anxiety disorder, unspecified; F32.A Depression, unspecified
CPT/HCPCS: 80048; 83880; 84484; 85025; 93005; 99284

== ENCOUNTER → 2021-08-09 | Outpatient (CLI) | payer OTHER, SELFPAY | END | disposition home or self-care (01) | LOC: SL 20:14 | PROVIDERS: PCP Family Medicine; Visit Provider Internal Medicine Critical Care Medicine | DX: G47.33 Obstructive sleep apnea (adult) (pediatric) (principal) | CPT/HCPCS: 95811 ==

== ENCOUNTER → 2021-08-14 | Outpatient (CLI) | payer OTHER, SELFPAY ==
--- NOTE | 2021-08-14 12:23 | STRESSREP ---
Stress Test Report Exercise myocardial perfusion stress test. 55-year-old with a history of chest pain and shortness of breath. Stress protocol: Resting EKG demonstrates sinus tachycardia with a rate of 110 bpm normal intervals are noted resting blood pressure is 160/84 mmHg occasional premature ventricular complexes noted. The patient exercised according to regular Jonathon protocol for total duration of 3 minutes. The maximum heart rate attained was 162 bpm which was 99% of max impact at heart rate the maximum workload was 4.6 metabolic equivalents. At rest there were no ST or T wave changes noted to suggest ischemia and at peak exercise nonspecific ST changes were noted. No clinical angina was noted but marked shortness of breath was noted. The peak blood pressure was 194/86 mmHg. Myocardial perfusion protocol. 14.7 mCi of technetium 99m sestamibi was injected at rest. The patient exercised according to regular Jonathon protocol for 3 minutes and at peak exercise 44.9 mCi of technetium 99m sestamibi was injected stress images were obtained stress and rest images were reconstructed and compared in the short axis vertical long and horizontal long axis. Gated images were also obtained for Perfusion SPECT analysis: Review of the stress images demonstrate normal uptake of tracer noted in all areas of the myocardium. The resting images similarly demonstrate normal uptake of tracer noted in all areas of the myocardium. No areas of reversibility are noted to suggest ischemia and no previous infarct is noted. Gated SPECT analysis: The gated ejection fraction was noted to be 40%. Conclusion: Normal exercise myocardial perfusion stress test at a low workload. Marked functional aerobic impairment. Mild cardiomyopathy present.
== END | disposition home or self-care (01) ==
PROVIDERS: PCP Family Medicine; Visit Provider Family Medicine
DX: R06.02 Shortness of breath (principal); I20.0 Unstable angina; R07.9 Chest pain, unspecified
CPT/HCPCS: 78452; 93017; A9500; A4216

== ENCOUNTER 2021-09-04 06:21 | Emergency (ER) | payer OTHER, SELFPAY ==
[2021-09-04 06:22] VITALS: BP 145/94; PULSE 79; RESP 24; TEMP 36.3; O2SAT 94; BMI 45.1
--- NOTE | 2021-09-04 06:46 | EDS_ITS ---
HPI History of Present Illness Chief Complaint: Shortness of Breath Informant: patient Onset/Context/Timing Onset: Today Context: sudden Timing: Continuous Quality: Positive for Orthopnea Worsened by: Lying flat Relieved by: other (Sitting upright) Associated Symptoms Negative for cough, rhinorrhea, ear pain, fever, sore throat, chills, clear sputum, white sputum, yellow sputum or green sputum Chest Pain: Positive for None Narrative Narrative: Patient presents with shortness of breath that began this morning. Patient states he woke up at approximately 0430 and was feeling short of breath. Patient states he checked his blood pressure at home and it was 171/125. Patient states he took a dose of Lasix. Patient states he rechecked his blood pressure later and it only improved to 173/99. Patient states his breathing feels labored. Patient states it is worse with laying flat and better whenever he sits up. Patient denies any dyspnea with exertion. Patient denies any fevers or chills. Patient denies any cough. [facility] Medical History Acute kidney injury Anemia Anxiety Anxiety and depression Atrial fibrillation Atrial fibrillation with RVR (03/28/20) BPH (benign prostatic hyperplasia) Cancer Current use of insulin Depression Diabetes Diabetes mellitus, type II Dyspnea Essential (primary) hypertension GERD (gastroesophageal reflux disease) High cholesterol History of non-ST elevation myocardial infarction (NSTEMI) (03/28/20) Hodgkin disease Hyperlipidemia Hypertension Hypothyroidism Lactic acidosis Morbid obesity with BMI of 45.0-49.9, adult Nephrolithiasis Non-smoker Obesity KIANNA (obstructive sleep apnea) Polyneuropathy due to type 2 diabetes mellitus Sleep apnea TIA (transient ischemic attack) (2019) Vision loss of left eye Vision loss of right eye Home Medications levothyroxine 125 mcg PO DAILY 05/03/15 [History Last Taken 06/19/21 07:00] pantoprazole [Protonix] 40 mg PO DAILY 05/03/15 [History Last Taken 06/19/21 07:00] tamsulosin 0.4 mg PO DAILY 09/08/15 [History Last Taken 06/19/21 07:00] buspirone 10 mg PO TID PRN 04/17/18 [History Last Taken 06/19/21 07:00] duloxetine [Cymbalta] 60 mg PO DAILY 04/17/18 [History Last Taken 06/19/21 07:00] aspirin 81 mg PO DAILY@0800 tab.chew 03/30/20 [Rx Last Taken 06/19/21 07:00] 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 meter,continuous #1 ea 07/26/20 [Rx Last Taken Unknown] metoprolol succinate 100 mg tablet,extended release 24 hr 100 mg PO DAILY #90 tab 10/19/20 [Rx Last Taken 06/19/21 07:00] pen needle, diabetic 31 gauge x 5/16 #1200 ea 12/22/20 [History Last Taken Unknown] Vania Lingar U-300 Insulin 55 unit SUBCUT DAILY 02/26/21 [History Last Taken 06/19/21 07:00] lisinopril 40 mg tablet 40 mg PO DAILY #90 tab 04/03/21 [Rx Last Taken 06/19/21 07:00] 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 sensor #3 ea 06/01/21 [Rx Last Taken Unknown] 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 transmitter #1 ea 06/01/21 [Rx Last Taken Unknown] pen needle, diabetic 32 gauge x 5/32 #150 ea 06/01/21 [Rx Last Taken Unknown] furosemide 40 mg tablet 40 mg PO DAILY #90 tab 07/26/21 [Rx Last Taken Unknown] potassium chloride 10 mEq tablet,extended release 20 meq PO DAILY #180 tab 07/26/21 [Rx Last Taken Unknown] metformin 500 mg tablet,extended release 24 hr 1,000 mg PO BIDWMEAL #360 tab 08/10/21 [Rx Last Taken Unknown] apixaban [Eliquis] 5 mg PO BID 09/04/21 [History Last Taken Unknown] atorvastatin [Lipitor] 80 mg PO QHS 09/04/21 [History Last Taken Unknown] glimepiride [Amaryl] 4 mg PO BID 09/04/21 [History Last Taken Unknown] Allergy/AdvReac Type Severity Reaction Status Date / Time metoclopramide HCl Allergy Anaphylaxis Verified 08/10/21 13:42 [From [facility]] Family History Brother Heart disease Other Alcohol abuse Arthritis CVA (cerebral vascular accident) Diabetes ulcer disease Surgical History History of left heart catheterization (2010) History of thoracentesis (2016) Hx of nephrolithotomy with removal of calculi Social History household members: spouse and none Smoking Status: Never smoker Electronic Cigarette Use: not used second hand exposure: No alcohol intake: never substance use type: does not use what type of physical activity do you participate in: none ROS ROS ED Constitutional Constitutional ED: Denies chills or fever(s) Eyes Eyes: Denies blurry vision or change in vision ENT ENT ED: Denies rhinorrhea or sore throat Cardiovascular Cardiovascular: Denies chest pain or palpitations Respiratory/Chest Respiratory/Chest: Reports dyspnea; Denies cough Gastrointestinal Gastrointestinal: Denies nausea or vomiting Genitourinary Genitourinary ED: Denies dysuria or hematuria Musculoskeletal Musculoskeletal: Reports neck pain; Denies back pain Integumentary Denies abscess or rash Neurologic Neurologic: Denies headache(s) or weakness Allergic/Immunologic Allergic/Immunologic ED: Denies mouth swelling or urticaria EXAM Physical Exam Const Vital Signs: 09/04/21 06:22 09/04/21 06:31 Temperature 97.4 F L Temperature Source Temporal Pulse Rate 79 Respiratory Rate 24 H Respiratory Effort Normal Respiratory Depth Normal Respiratory Pattern Tachypnea Blood Pressure 145/94 H Blood Pressure Mean 111 Pulse Ox 94 Oxygen Delivery Method Room Air Room Air Positive well nourished and well developed General Appearance ED: well developed and NAD HEENT Reports moist mucous membranes Neck supple and no JVD Resp normal respiratory effort Auscultation: diminished lung sounds diffuse Cardio regular rate, regular rhythm and no murmurs GI normal to inspection, nondistended, normoactive bowel sounds and non-tender Palpation: soft Extremity normal to inspection General Extremety ED: Negative for edema or tenderness General Extremity: Negative for edema Neuro oriented x3, CN's II-XII intact bilaterally and no sensory deficits noted Sensorium / Orientation: alert Motor Exam: strength 5/5 throughout Psych mental status grossly normal Skin no rashes or lesions noted MDM MDM MDM Narrative Medical decision making narrative: CBC was obtained. There is a mild anemia with hemoglobin of 11.0 and hematocrit 34.7. Comprehensive metabolic profile and troponin were ordered and are pending. BNP was ordered and is pending. Chest x-ray was ordered and is pending. Care of the patient was turned over to the oncoming physician. Lab Data Labs: Laboratory Results - last 24 hr 09/04/21 06:40 WBC 7.5 RBC 4.26 L Hgb 11.0 L Hct 34.7 L MCV 81.5 MCH 25.8 L MCHC 31.7 L RDW Std Deviation 46.4 H RDW Coeff of Gavi 15.7 H Plt Count 200 MPV 10.2 Immature Gran % (Auto) 0.700 Neut % (Auto) 63.3 Lymph % (Auto) 21.2 [place] % (Auto) 10.7 H Eos % (Auto) 3.6 Baso % (Auto) 0.5 Absolute Neuts (auto) 4.8 Absolute Lymphs (auto) 1.59 Nucleated RBC % 0 Discharge Plan Triage Chief Complaint: Shortness of Breath ED Provider: Ochoa Mascorro Dx/Rx/DC Orders Prescriptions: No Action (DME) Dexcom G6 Tax Technician Misc See Rx Instructions .ROUTE .MEDSUPPLY Qty: 1 RF: 0 (DME) pen needle, diabetic 31 gauge x 5/16 needle See Rx Instructions ea .ROUTE .MEDSUPPLY Qty: 1200 RF: 0 (DME) Dexcom G6 Sensor Device See Rx Instructions .ROUTE .MEDSUPPLY Qty: 3 RF: 6 (DME) pen needle, diabetic [BD Ultra-Fine Kiki Pen Needle] 32 gauge x 5/32 needle See Rx Instructions .ROUTE .MEDSUPPLY Qty: 150 RF: 6 (DME) Dexcom G6 Transmitter Device See Rx Instructions .ROUTE .MEDSUPPLY Qty: 1 RF: 3 metformin 500 mg tablet extended release 24 hr 1,000 mg PO BIDWMEAL Qty: 360 RF: 3 pantoprazole [Protonix] 40 MG tablet 40 mg PO DAILY RF: 0 levothyroxine 125 MCG tablet 125 mcg PO DAILY RF: 0 tamsulosin 0.4 MG capsule 0.4 mg PO DAILY RF: 0 buspirone 10 MG tablet 10 mg PO TID PRN RF: 0 duloxetine [Cymbalta] 60 MG capsule,delayed release(DR/EC) 60 mg PO DAILY RF: 0 aspirin 81 MG tablet,chewable 81 mg PO DAILY@0800 RF: 0 Toujeo SoloStar U-300 Insulin 300 unit/mL (1.5 mL) insulin pen 55 unit SUBCUT DAILY RF: 0 atorvastatin [Lipitor] 80 MG tablet 80 mg PO QHS RF: 0 glimepiride [Amaryl] 4 mg tablet 4 mg PO BID RF: 0 Eliquis 5 mg tablet 5 mg PO BID RF: 0 metoprolol succinate 100 mg tablet extended release 24 hr 100 mg PO DAILY Qty: 90 RF: 3 lisinopril 40 mg tablet 40 mg PO DAILY Qty: 90 RF: 3 furosemide [Lasix] 40 mg tablet 40 mg PO DAILY Qty: 90 RF: 3 potassium chloride 10 mEq tablet extended release 20 meq PO DAILY Qty: 180 RF: 3 Primary Care Provider: Radha Khan
--- NOTE | 2021-09-04 06:51 | RAD_ITS ---
STUDY: X-RAY CHEST REASON FOR EXAM: Male, 56 years old. Dyspnea TECHNIQUE: Single AP portable view of the chest. 7:05 AM COMPARISON: Previous chest radiographs of 06/19/2021 and 02/26/2021.. FINDINGS: Multiple bands of linear scarring again noted within both lungs, unchanged. There is slight reticulonodular interstitial thickening in the right lower lung, unchanged since 2020, consistent with interstitial fibrotic changes. Minor fissure remains chronically thickened due to scarring. Airspace disease previously seen within the medial aspect of the left upper lung has resolved. A band of density extending from the left hilum into the central aspect of the left upper lung is stable and is secondary to scarring and/or superimposed vascular shadows. Peribronchial cuffing has developed at the right hilum indicating bronchial wall inflammation. No developing pneumonia or pleural effusion is identified. Heart size remains mildly enlarged with normal pulmonary vasculature. Stable mild elongation and calcification of the aortic arch. No acute osseous abnormality. There is no demonstrated abnormality of the visualized soft tissue structures of the upper abdomen. RAD/Chest 1 View (Portable) IMPRESSION: Interval development of right peribronchial cuffing indicating bronchial wall inflammation/bronchitis. Chronic scarring in both lungs. No definite pneumonia identified. Electronically Signed: Nicolas Benito MD at 7:35 EDT ,
[2021-09-04 07:03] LABS: Absolute Lymphocyte Count 1.59 X10^3/uL (0.83-4.51); Absolute Neutrophil Count 4.8 X10^3/uL (2.0-7.7); Basophil# 0.04 X10^3/uL; Basophil% 0.5 % (0-1); Eosinophil# 0.27 X10^3/uL; Eosinophils% 3.6 % (0-5); Hematocrit 34.7 % (40-54); Lymphocyte # 1.59 X10^3/ul (0.83-4.51); Lymphocyte % 21.2 % (19-41); Mean Corp Hgb Conc 31.7 g/dL (32-36); Mean Corpuscular Hgb 25.8 pg (27.0-32.0); Mean Corpuscular Volume 81.5 fL (80-94); Mean Platelet Vol. 10.2 fl (6.2-12.0); Monocyte% 10.7 % (0-10); NRBC Flagged by Analyzer 0 % (0-5); Neutrophil # 4.76 X10^3/uL (2.7-7.7); Neutrophil % 63.3 % (47-70); Platelet Count 200 K/mm3 (150-450); RBC Distribution Width CV 15.7 % (11.6-14.6); RBC Distribution Width SD 46.4 fl (35.1-43.9); Red Blood Count 4.26 M/mm3 (4.6-6.2); White Blood Count 7.5 K/mm3 (4.4-11.0)
--- NOTE | 2021-09-04 07:11 | EKG12_ITS ---
Test Reason : SOB Blood Pressure : / mmHG Vent. Rate : 075 BPM Atrial Rate : 075 BPM P-R Int : 156 ms QRS Dur : 112 ms QT Int : 420 ms P-R-T Axes : -07 -10 028 degrees QTc Int : 469 ms Normal sinus rhythm Voltage criteria for left ventricular hypertrophy Inferior infarct , age undetermined, cannot be excluded Abnormal ECG Confirmed by RICHIE MCRAE, ALESSIA ([id number]), online editor BETHEL ROONEY ([id number]) on 09/05/2021 1:30:35 PM Referred By: COLLINS Confirmed By:ALESSIA QUIROZ MD
[2021-09-04 07:22] LABS: ALB/GLOB Ratio 0.7 RATIO (0.9-2.4); AST(SGOT) 18 U/L (15-37); Alanine Aminotransfer ALT/SGPT 23 U/L (16-61); Albumin, Serum 3.1 g/dL (3.2-5.0); Alkaline Phosphatase 92 U/L (45-117); Anion Gap 5 (5-15); BUN 22 mg/dL (7-18); BUN/Creat Ratio 25.2 RATIO (10-20); Calcium,Total 8.5 mg/dL (8.5-10.1); Chloride 107 mmol/L (98-107); Creatinine, Serum 0.87 mg/dL (0.70-1.30); EST Glomerular Filtration Rate 95 mL/min (>60); Est Glom Filt Rate - Afr Amer 115 mL/min (>60); Estimated Creatinine Clearance 92.55 ml/min; Globulin 4.5 g/dL (2.2-4.2); Glucose 174 mg/dL (74-106); Protein, Total 7.6 g/dL (6.4-8.2); Sodium Level 138 mmol/L (136-145); Troponin-I HS (w/2H Reflex) 17 pg/mL (3.0-78.0)
[2021-09-04 07:56] LABS: BNP,B-Type NATRIURETIC PEPTIDE 105.8 pg/mL (0-100)
[2021-09-04 08:44] VITALS: BP 150/87; PULSE 77; RESP 16; O2SAT 99
[2021-09-04 08:48] VITALS: BP 176/92
[2021-09-04 08:59] LABS: Reflex Troponin-HS? (from REC) Y
[2021-09-04 09:10] VITALS: BP 172/77; PULSE 78; O2SAT 95
[2021-09-04 09:45] LABS: Troponin-I HS 16 pg/mL (3.0-78.0)
[2021-09-04 10:10] VITALS: BP 172/82
== END 2021-09-04 10:10 | disposition home or self-care (01) ==
PROVIDERS: Emergency Provider Emergency Medicine; PCP Family Medicine; Visit Provider Emergency Medicine
DX: I11.0 Hypertensive heart disease with heart failure (principal); I50.33 Acute on chronic diastolic (congestive) heart failure; E11.42 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 with diabetic polyneuropathy; I48.91 Unspecified atrial fibrillation; E66.01 Morbid (severe) obesity due to excess calories; Z68.42 Body mass index [BMI] 45.0-49.9, adult; Z79.4 Long term (current) use of insulin; R06.02 Shortness of breath; I25.2 Old myocardial infarction; E78.00 Pure hypercholesterolemia, unspecified; E03.9 Hypothyroidism, unspecified; K21.9 Gastro-esophageal reflux disease without esophagitis; F32.A Depression, unspecified; F41.9 Anxiety disorder, unspecified; Z79.899 Other long term (current) drug therapy; Z79.01 Long term (current) use of anticoagulants; Z79.82 Long term (current) use of aspirin; Z79.84 Long term (current) use of oral hypoglycemic drugs; Z86.73 Personal history of transient ischemic attack (TIA), and cerebral infarction without residual deficits
CPT/HCPCS: 71045; 80053; 83880; 84484; 85025; 93005; 99284; A4216

== ENCOUNTER → 2021-09-19 | Outpatient (CLI) | payer OTHER, SELFPAY ==
--- NOTE | 2021-09-19 13:14 | PFTCOMP ---
COMPLETE PULMONARY FUNCTION TEST INTERPRETATION Brief HPI: Patient is a 56-year-old male, currently under the care of myself, who presents to [facility] for complete pulmonary function tests secondary to diagnosis of dyspnea. Respiratory therapist reports good effort and reproducible results. Interpretation: Forced expiration spirometry shows no large airways obstructive ventilatory defect with an FEV1 of 72% predicted. There is no significant bronchodilator response by strict ATS criteria. Spirograms are of good quality and plateau normally. The respiratory flow volume loop shows a normal pattern. Lung volumes by body plethysmography show a decreased total lung capacity at 4.76 L, 74% predicted. All other lung volumes are reduced symmetrically. Diffusion capacity by carbon monoxide is decreased at 40% predicted. The airway resistance is normal. No previous pulmonary function tests were available for review. Impression: Mild restrictive ventilatory defect with a disproportionate reduction in diffusion capacity
== END | disposition home or self-care (01) ==
LOC: PSN 09:37
PROVIDERS: PCP Family Medicine; Referring Provider Internal Medicine Critical Care Medicine; Visit Provider Internal Medicine Critical Care Medicine
DX: R06.00 Dyspnea, unspecified (principal)
CPT/HCPCS: 94060; 94726; 94729

== ENCOUNTER → 2021-09-28 | Outpatient (CLI) | payer OTHER, SELFPAY ==
--- NOTE | 2021-09-28 08:09 | CDU_ITS ---
Reason For Study: left bruit Rt. Velocities/BP Lt. Velocities/BP Prox CCA 133.9/27.9 cm/sec. Prox CCA 174.1/38.9 cm/sec. Mid CCA 108.3/26.1 cm/sec. Mid CCA 279.7/60.0 cm/sec. Dist CCA 96.1/20.0 cm/sec. Dist CCA 189.9/39.6 cm/sec. Prox ICA 68.3/19.2 cm/sec. Prox ICA 169.6/38.0 cm/sec. Mid ICA 99.8/28.6 cm/sec. Mid ICA 185.0/48.9 cm/sec. Dist ICA 108.4/32.3 cm/sec. Dist ICA 128.4/35.3 cm/sec. Rt. ICA/CCA = 1.0. Lt. ICA/CCA = .7. Prox ECA 369.9/24.7 cm/sec. Prox ECA 156.5/22.6 cm/sec. Rt. Vert. 45.4/13.5 cm/sec. Right Extracranial There is heterogeneous, irregular atherosclerotic plaque noted in the right common carotid artery. There is heterogeneous, irregular atherosclerotic plaque noted in the right internal carotid artery. There is homogeneous, smooth atherosclerotic plaque noted in the right external carotid artery. Antegrade flow is noted in the right vertebral artery. Left Extracranial There is heterogeneous, irregular atherosclerotic plaque noted in the left common carotid artery. There is heterogeneous, irregular atherosclerotic plaque noted in the left internal carotid artery. There is heterogeneous, irregular atherosclerotic plaque noted in the left external carotid artery. Flow could not be demonstrated in the left vertebral artery. Procedure Carotid Duplex 30852. This is a Carotid Duplex examination using B-mode, color flow and specral Doppler. The exam was diagnostic. Exam performed in department. Prelim called to . VL/Carotid Duplex Ultrasound Interpretation Summary Irregular calcific plaque at the proximal right internal carotid artery with le ss than 50% stenosis. Greater than 50% stenosis right external carotid artery Irregular plaque noted throughout the left common carotid artery and internal c arotid artery and external carotid artery with 50 to 69% stenosis of the left internal carotid ar christine and less than 50% stenosis of the left external carotid artery Patent and antegrade right vertebral Flow could not be demonstrated in the left vertebral artery. Ordering Physician: Linda Chin Performed By: Christian Orta RVT
== END | disposition home or self-care (01) ==
LOC: CVS 07:37
PROVIDERS: PCP Family Medicine; Referring Provider Nurse Practitioner Gerontology; Visit Provider Nurse Practitioner Gerontology
DX: I65.23 Occlusion and stenosis of bilateral carotid arteries (principal); R09.89 Other specified symptoms and signs involving the circulatory and respiratory systems
CPT/HCPCS: 93880

== ENCOUNTER → 2022-02-16 | Outpatient (CLI) | payer OTHER, SELFPAY ==
[2022-02-16 12:47] VITALS: PULSE 77; PULSE 78; PULSE 79; PULSE 82; PULSE 84; PULSE 88; PULSE 92; PULSE 95; O2SAT 100; O2SAT 87; O2SAT 89; O2SAT 91; O2SAT 94; O2SAT 98
--- NOTE | 2022-02-16 12:49 | CPS ---
Patient does not have O2 at home. Patient was seen by Dr. Salas last week.
--- NOTE | 2022-02-17 06:59 | WT_ITS ---
PSN 6 Minute Walk Test 6 Minute Walk Test 6 Minute Walk Test: 6 Minute Walk Test PSN:6-Minute Walk Test Start: 02/16/22 12:47 Freq: Status: Active Protocol: [id number] Document 02/16/22 12:47 CRISTIAN (Rec: 02/16/22 12:50 CRISTIAN [id number]) 6 Minute Walk Test Date Performed 02/16/22 Time Performed 12:00 Height 5 ft 10 in Weight: 302 lb Weight in Pounds 302.[address]: Jonathon Salas Assistive device used: None Pre-test Oxygen Delivery Method Room Air Pulse Ox (%) 98 Pulse Rate (60-100 beats/min) 77 Dyspnea Marilyn Scale (0-10) 0 Exertion Marilyn Scale (6-20) 6 1st minute Oxygen Delivery Method Room Air Pulse Ox (%) 98 Pulse Rate (60-100 beats/min) 79 2nd minute Oxygen Delivery Method Room Air Pulse Ox (%) 91 Pulse Rate (60-100 beats/min) 92 3rd minute Oxygen Delivery Method Room Air Pulse Ox (%) 89 Pulse Rate (60-100 beats/min) 82 4th minute Oxygen Delivery Method Room Air Pulse Ox (%) 87 Pulse Rate (60-100 beats/min) 88 Dyspnea Marilyn Scale (0-10) 4 5th minute Oxygen Flow Rate (L/min) (L/min) 2 Oxygen Delivery Method Nasal Cannula Pulse Ox (%) 98 Pulse Rate (60-100 beats/min) 84 6th minute Oxygen Flow Rate (L/min) (L/min) 2 Oxygen Delivery Method Nasal Cannula Pulse Ox (%) 94 Pulse Rate (60-100 beats/min) 95 Dyspnea Marilyn Scale (0-10) 3 Exertion Marilyn Scale (6-20) 13 Post-test Oxygen Flow Rate (L/min) (L/min) 2 Oxygen Delivery Method Nasal Cannula Pulse Ox (%) 100 Pulse Rate (60-100 beats/min) 78 Full Laps Walked 12 Partial Lap, Number of Tiles Walked 13 Total Distance Walked (ft) 721 02/16/22 12:49 Cardiopulmonary Services by [place] Patient does not have O2 at home. Patient was seen by Dr. Salas last week. Initialized on 02/16/22 12:49 - END OF NOTE Interpretation Interpretation: The patient ambulated 721 feet over the course of 6 minutes beginning on room air without assistive devices. Pretesting oxygen saturation was noted to be 98% on room air. With ambulation, the guera oxygen saturation was 87%. 2 L/min of supplemental oxygen was applied, and the patient was able to complete the r emainder of the test while maintaining appropriate oxygen saturations. Recommendations Recommendations: 2 L/min of supplemental oxygen should be utilized with exertion.
== END | disposition home or self-care (01) ==
LOC: PSN 11:36
PROVIDERS: PCP Family Medicine; Visit Provider Internal Medicine Critical Care Medicine
DX: I50.32 Chronic diastolic (congestive) heart failure (principal); R06.00 Dyspnea, unspecified
CPT/HCPCS: 94618

== ENCOUNTER → 2022-04-17 | Outpatient (CLI) | payer OTHER, SELFPAY ==
--- NOTE | 2022-04-17 15:22 | RAD_ITS ---
EXAM: XR THORACIC SPINE, 2 VIEWS CLINICAL INDICATION: BACK PAIN TECHNIQUE: Frontal and lateral views of the thoracic spine. This report was created using [employer] report generation technology. COMPARISON: None. FINDINGS: VERTEBRAE: See below. DISC SPACES: There are degenerative changes with disc space narrowing at multiple levels. There are osteophytes present. RAD/Thoracic Spine 2 Views IMPRESSION: Multilevel degenerative change with disc space narrowing and osteophyte formation. There are no acute osseous abnormalities. Electronically Signed: Mendoza Gutierrez MD at 18:58 EST ,
[2022-04-17 18:03] LABS: Absolute Lymphocyte Count 2.25 X10^3/uL (0.83-4.51); Basophil# 0.09 X10^3/uL; Basophil% 1.1 % (0-1); Eosinophil# 0.28 X10^3/uL; Eosinophils% 3.3 % (0-5); Hematocrit 35.6 % (40-54); Hemoglobin 11.1 g/dL (13.0-16.5); Lymphocyte # 2.25 X10^3/ul (0.83-4.51); Lymphocyte % 26.8 % (19-41); Mean Corp Hgb Conc 31.2 g/dL (32-36); Mean Corpuscular Volume 80.2 fL (80-94); Mean Platelet Vol. 10.3 fl (6.2-12.0); Monocyte# 0.72 X10^3/uL; Monocyte% 8.6 % (0-10); NRBC Flagged by Analyzer 0 % (0-5); Neutrophil # 5.01 X10^3/uL (2.7-7.7); Neutrophil % 59.8 % (47-70); Platelet Count 268 K/mm3 (150-450); RBC Distribution Width CV 17.2 % (11.6-14.6); Red Blood Count 4.44 M/mm3 (4.6-6.2); White Blood Count 8.4 K/mm3 (4.4-11.0)
[2022-04-17 18:59] LABS: Anion Gap 11 (5-15); BUN 32 mg/dL (7-18); BUN/Creat Ratio 25.8 RATIO (10-20); Calcium,Total 8.9 mg/dL (8.5-10.1); Chloride 102 mmol/L (98-107); Creatinine, Serum 1.24 mg/dL (0.70-1.30); EST Glomerular Filtration Rate 64 mL/min (>60); Est Glom Filt Rate - Afr Amer 77 mL/min (>60); Glucose 263 mg/dL (74-106); Iron 48 ug/dL (65-175); Iron Binding Capacity,Total 350 ug/dL (250-450); PERCENT IRON SATURATION 13.7 % (15.0-55.0); Sodium Level 135 mmol/L (136-145)
[2022-04-17 19:21] LABS: BNP,B-Type NATRIURETIC PEPTIDE 37.2 pg/mL (0-100)
== END | disposition home or self-care (01) ==
PROVIDERS: PCP Family Medicine; Referring Provider Nurse Practitioner Family; Visit Provider Nurse Practitioner Family
DX: R06.00 Dyspnea, unspecified (principal); I50.32 Chronic diastolic (congestive) heart failure; I11.0 Hypertensive heart disease with heart failure; M54.6 Pain in thoracic spine
CPT/HCPCS: 36415; 72070; 80048; 83540; 83550; 83880; 85025

== ENCOUNTER → 2022-04-27 | Outpatient (CLI) | payer OTHER, SELFPAY ==
--- NOTE | 2022-04-27 14:51 | RAD_ITS ---
STUDY: X-RAY CHEST REASON FOR EXAM: Male, 56 years old. Feeling sick for one week. Worsening over the past few days. Question bacterial pneumonia. TECHNIQUE: PA and lateral views of the chest. COMPARISON: September 04, 2021. FINDINGS: Limited inspiratory effort. There appears to be chronic interstitial changes in the lungs. No acute infiltrate or mass. Minimal peribronchial cuffing. There is no demonstrated pleural abnormality. Normal size heart. Normal mediastinum and darrel. Normal visualized pulmonary arteries. There is atherosclerotic calcification of the aortic arch with tortuosity. There are diffuse degenerative changes of the visualized thoracic spine. There is degenerative osteoarthritis of the bilateral shoulders. There is no demonstrated abnormality of the visualized soft tissue structures of the upper abdomen. RAD/Chest PA and Lateral IMPRESSION: Chronic interstitial changes with mild bronchitis. Electronically Signed: Gio Croft DO at 18:12 EST ,
== END | disposition home or self-care (01) ==
LOC: MTRAD 14:50
PROVIDERS: PCP Family Medicine; Referring Provider Family Medicine; Visit Provider Family Medicine
DX: J15.9 Unspecified bacterial pneumonia (principal)
CPT/HCPCS: 71046

== ENCOUNTER 2022-05-09 07:52 | Day surgery (SDC) | payer OTHER, SELFPAY ==
[2022-05-08 08:18] VITALS: BMI 44.6
--- NOTE | 2022-05-09 12:15 | CL.D_ITS ---
Patient Name: KRUNAL LEOS Study Date: 05/09/2022 Performing: Sumanth Hanna MD Ht: 69 inches 175.26 cm : 1965 Wt: 302.4 lbs 136.98 kg Age: 56 Gender: male BSA: 2.46 PROCEDURE(S) PERFORMED DC01-(84370)LHC/COR/LV [id number], UPPER EXTREMITY, UNILATERAL CLINICAL PROFILE AND INDICATIONS Indications: Other Heart Failure: None Stress/Imaging Stress/Image Study Performed: No CAD Presentations: Other: SOB CONCLUSIONS Non obstructive coronary arteries RECOMMENDATIONS Medical therapy DESCRIPTION OF PROCEDURE The patient arrived to the procedure lab. The risks and benefits of the procedure as well as a full description of our services here and current unavailability of surgical backup were fully explained to the patient and/or their significant other prior to the catheterization. The Timeout was completed, verifying the correct patient and procedure. The patient's procedural site was prepped and draped in the usual fashion. Local anesthetic was given subcutaneously to right radial region with Lidocaine 2%. Using a modified Seldinger technique, arterial access was obtained via the right radial artery, a 6Fr sheath was inserted. Right Coronary Artery selective angiography was then performed in multiple views using a 5 Fr. 4.0 [place] catheter. Left Coronary Artery selective angiography was performed in multiple views using a 5 Fr. 4.0 [place] catheter. Left Ventriculography was performed in [place] projection using a 5 Fr. Pig[place] catheter. LV to AO pullback pressures were then recorded. Right subclavian selective angiography was then performed in single view.The arterial sheath was pulled and a TR Band was applied for hemostasis. 10cc air inserted. CORONARY ANGIOGRAPHY DOMINANCE: Right Dominant LEFT HEART ASSESSMENT Left Ventricular Ejection Fraction: by LV Gram 55 % Normal LV wall motion Normal Left Ventricular systolic function Right subclavian stenosis with a gradient of 20 mmHg present LEFT MAIN: Ostial 30% stenosis LEFT ANTERIOR DESCENDING ARTERY: Mild calcification CIRCUMFLEX ARTERY: Nondominant circumflex artery with the first and second obtuse marginal branch with moderate disease but no high-grade stenosis noted. RIGHT CORONARY ARTERY: Dominant right coronary artery with no high-grade stenosis present COMPLICATIONS No Complications PROCEDURE MEDICATIONS Fentanyl 50 mcg IV Versed 1 mg IV Versed 1 mg IV Fentanyl 25 mcg IV Versed 1 mg IV Oxygen: 2 L/min via nasal cannula Heparin given IA 05/09/2022 09:30:47 Verapamil 2.5mg, Ntg 100mcgs, 3000 units of Heparin given IA 05/09/2022 09:30:47 SUMMARY OF HEMODYNAMIC DATA Time AIR REST ECG 08:36:32 AO 144/70 (101) SA 09:36:00 LV 143/14, 22 09:43:36 LV 151/9, 21 09:43:42 LV 150/16, 27 09:44:23 LVp 148/14, 25 09:44:28 AOp 142/64 (96) 09:44:33 Art 157/72 (107) 09:48:08 Art 156/65 (107) 09:48:40 Art 136/68 (94) 09:48:45 Signed By Sumanth Hanna MD On 05/09/2022 12:14:38 Sumanth Hanna MD
== END 2022-05-09 11:25 | disposition home or self-care (01) ==
LOC: CLSP 07:53
PROVIDERS: PCP Family Medicine; Referring Provider Internal Medicine Cardiovascular Disease; Visit Provider Internal Medicine Cardiovascular Disease
DX: I25.10 Atherosclerotic heart disease of native coronary artery without angina pectoris (principal); E11.42 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 with diabetic polyneuropathy; I48.0 Paroxysmal atrial fibrillation; Z79.4 Long term (current) use of insulin; I10 Essential (primary) hypertension; E78.00 Pure hypercholesterolemia, unspecified; R06.02 Shortness of breath; R09.89 Other specified symptoms and signs involving the circulatory and respiratory systems; G47.33 Obstructive sleep apnea (adult) (pediatric); N40.0 Benign prostatic hyperplasia without lower urinary tract symptoms; E66.9 Obesity, unspecified; Z79.82 Long term (current) use of aspirin; Z79.01 Long term (current) use of anticoagulants; Z79.899 Other long term (current) drug therapy; I25.2 Old myocardial infarction; Z86.73 Personal history of transient ischemic attack (TIA), and cerebral infarction without residual deficits
CPT/HCPCS: 93458; 99152; 99153; J7040; Q9967; C1769; C1894

== ENCOUNTER → 2022-05-18 | Outpatient (CLI) | payer OTHER, SELFPAY ==
[2022-05-18 12:39] LABS: Anion Gap 8 (5-15); BUN 21 mg/dL (7-18); BUN/Creat Ratio 19.4 RATIO (10-20); Calcium,Total 8.6 mg/dL (8.5-10.1); Chloride 106 mmol/L (98-107); Creatinine, Serum 1.08 mg/dL (0.70-1.30); EST Glomerular Filtration Rate 75 mL/min (>60); Est Glom Filt Rate - Afr Amer 90 mL/min (>60); Glucose 251 mg/dL (74-106); Potassium 3.8 mmol/L (3.5-5.1); Sodium Level 135 mmol/L (136-145)
== END | disposition home or self-care (01) ==
LOC: MTLAB 10:22
PROVIDERS: PCP Family Medicine; Referring Provider Physician Assistant Medical; Visit Provider Physician Assistant Medical
DX: G47.33 Obstructive sleep apnea (adult) (pediatric) (principal)
CPT/HCPCS: 36415; 80048

== ENCOUNTER → 2022-06-26 | Outpatient (CLI) | payer OTHER, SELFPAY ==
[2022-06-26 10:21] LABS: Anion Gap 7 (5-15); BUN 47 mg/dL (7-18); BUN/Creat Ratio 30.7 RATIO (10-20); Chloride 104 mmol/L (98-107); Creatinine, Serum 1.53 mg/dL (0.70-1.30); EST Glomerular Filtration Rate 50 mL/min (>60); Est Glom Filt Rate - Afr Amer 60 mL/min (>60); Glucose 224 mg/dL (74-106); Potassium 4.6 mmol/L (3.5-5.1); Sodium Level 134 mmol/L (136-145)
[2022-06-26 10:45] LABS: Cholesterol 145 mg/dL (200); High Density Lipoprotein 36 mg/dL; T4 Free Direct 1.33 ng/dL (0.76-1.46); Thyroid Stim Hormone (TSH) 1.59 uIU/mL (0.358-3.74); Triglycerides 271 mg/dL; Very Low Density Lipoprotein 54 mg/dL (5-40)
[2022-06-26 10:46] LABS: Microalbumin,Random Urine 51.1 mg/L (NO RANGE EST.); Microalbumin:Creatinine Ratio 72.5 mg/g CRE (<30 mg/g CRE)
[2022-07-02 12:08] LABS: Testosterone, Free 3.78 ng/dL (5.00-21.00)
[2022-07-03 11:10] LABS: Testosterone, Total 122 ng/dL (264-916)
== END | disposition home or self-care (01) ==
LOC: MTLAB 07:35
PROVIDERS: Nurse Practitioner Family; PCP Family Medicine; Referring Provider Nurse Practitioner Family; Visit Provider Nurse Practitioner Family
DX: E03.9 Hypothyroidism, unspecified (principal); E11.9 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 without complications; I10 Essential (primary) hypertension; E66.9 Obesity, unspecified
CPT/HCPCS: 36415; 80048; 80061; 82043; 82570; 84402; 84403; 84439; 84443

== ENCOUNTER → 2022-07-27 | Outpatient (CLI) | payer OTHER, SELFPAY ==
--- NOTE | 2022-07-27 13:56 | RAD_ITS ---
INDICATION: Cervicalgia EXAMINATION/TECHNIQUE: X-RAY - XR Spine Cervical 4 or 5 Views COMPARISON: None. FINDINGS: The vertebral bodies are normal in height. No definite fracture demonstrated. No subluxation. C1-2 alignment is maintained. Mild disc space narrowing with osteophytes most pronounced C4-C7. Facet arthropathy most pronounced on the left C3-C5 level. Mild neural foraminal encroachment on the right at C4-5 and C5-6, and on the left at and C3-4 and C4-5. Prevertebral soft tissues are unremarkable. RAD/Cerv Spine 4 or 5 Views IMPRESSION: No evidence of fracture or subluxation. Degenerative changes. MRI may be helpful for further evaluation. Electronically Signed: Daniela Verduzco MD at 6:53 EDT ,
== END | disposition home or self-care (01) ==
LOC: MTRAD 13:53
PROVIDERS: PCP Family Medicine; Referring Provider Family Medicine; Visit Provider Family Medicine
DX: M54.2 Cervicalgia (principal)
CPT/HCPCS: 72050

== ENCOUNTER 2022-08-01 19:06 | Observation (INO) | payer OTHER, SELFPAY ==
[2022-08-01 19:07] VITALS: BP 148/82; PULSE 96; RESP 18; TEMP 36.7; O2SAT 99
[2022-08-01 19:23] LABS: Absolute Lymphocyte Count 0.99 X10^3/uL (0.83-4.51); Absolute Neutrophil Count 5.2 X10^3/uL (2.0-7.7); Basophil# 0.05 X10^3/uL; Basophil% 0.7 % (0-1); Eosinophil# 0.25 X10^3/uL; Eosinophils% 3.4 % (0-5); Hematocrit 36.8 % (40-54); Hemoglobin 11.8 g/dL (13.0-16.5); Lymphocyte # 0.99 X10^3/ul (0.83-4.51); Lymphocyte % 13.4 % (19-41); Mean Corp Hgb Conc 32.1 g/dL (32-36); Mean Platelet Vol. 9.9 fl (6.2-12.0); Monocyte# 0.87 X10^3/uL; Monocyte% 11.7 % (0-10); NRBC Flagged by Analyzer 0 % (0-5); Neutrophil # 5.22 X10^3/uL (2.7-7.7); Neutrophil % 70.4 % (47-70); Platelet Count 216 K/mm3 (150-450); RBC Distribution Width CV 16.2 % (11.6-14.6); RBC Distribution Width SD 45.6 fl (35.1-43.9); Red Blood Count 4.72 M/mm3 (4.6-6.2); White Blood Count 7.4 K/mm3 (4.4-11.0)
--- NOTE | 2022-08-01 19:38 | RAD_ITS ---
STUDY: X-RAY CHEST REASON FOR EXAM: Male, 56 years old. Stroke TECHNIQUE: AP portable COMPARISON: April 27, 2022 FINDINGS: Minor chronic interstitial thickening in the lower lobes. No acute infiltration. There is no demonstrated pleural abnormality. Normal size heart. Normal mediastinum and darrel. Normal visualized pulmonary arteries. Mildly calcified aortic arch and descending thoracic aorta. Dorsal spine demonstrates degenerative changes. Normal visualized ribs, clavicles, and shoulders. There is no demonstrated abnormality of the visualized soft tissue structures of the upper abdomen. No significant change since prior exam RAD/Chest 1 View (Portable) IMPRESSION: Mild chronic interstitial changes in the lower lobes. No acute cardiopulmonary pathology. Electronically Signed: Sameer Aparicio MD at 19:51 EDT ,
[2022-08-01 19:41] LABS: International Normalized Ratio 1.1; Prothrombin Time (Protime)PT. 13.8 SECONDS (11.7-14.9)
[2022-08-01 19:42] LABS: Partial Thromboplast Time 28.7 Seconds (24.1-36.2)
[2022-08-01 19:46] LABS: Anion Gap 7 (5-15); BUN 30 mg/dL (7-18); BUN/Creat Ratio 24.8 RATIO (10-20); Chloride 104 mmol/L (98-107); Creatinine, Serum 1.21 mg/dL (0.70-1.30); EST Glomerular Filtration Rate 65 mL/min (>60); Est Glom Filt Rate - Afr Amer 79 mL/min (>60); Glucose 262 mg/dL (74-106); Potassium 4.1 mmol/L (3.5-5.1); Sodium Level 134 mmol/L (136-145)
[2022-08-01 19:55] VITALS: BMI 45.8
[2022-08-01 19:56] VITALS: BP 149/79; PULSE 81; RESP 17; O2SAT 97
--- NOTE | 2022-08-01 20:02 | CT_ITS ---
We are attempting to reach an attending provider to discuss findings. An addendum with communication details will be sent when the communication is complete. STUDY: CTA HEAD AND NECK WITH CONTRAST REASON FOR EXAM: Male, 56 years old. vertigo RADIATION DOSAGE (If Supplied By Facility): CTDIvol = ( 26.56 ) mGy, DLP = ( 1553.40 ) mGycm TECHNIQUE: CT angiography was performed with a multi-detector CT scanner. Data acquisition was obtained from the skull base through the vertex following intravenous administration of IV 100mL Isovue-370. MIP images were reconstructed from the axial data set. Post-processing of the angiographic images was performed, with multiplanar reformation and 3D reconstruction. Individualized dose optimization techniques were used for this CT. COMPARISON: April 17, 2018. FINDINGS: Normal bilateral petrous carotid arteries. Normal right cavernous carotid artery with a normal supraclinoid bifurcation. Normal left cavernous carotid artery with a normal supraclinoid bifurcation. Normal right A1 segments of the anterior cerebral artery. Normal left A1 segments of the anterior cerebral artery. Normal intact anterior communicating artery (ACOM). Normal bilateral A2 segments of the anterior cerebral arteries. Normal right M1 and severely stenotic proximal M2 segments of the middle cerebral arteries,. Normal left M1 and M2 segments of the middle cerebral arteries, Hypoplastic right posterior communicating artery (PCOM). Hypoplastic left posterior communicating artery (PCOM). Normal bilateral vertebral arteries. Normal basilar artery with a normal basilar bifurcation. The visualized bilateral superior cerebellar (SCA) arteries are normal. Normal bilateral P1, P2 and visualized P3 segments of the posterior cerebral arteries. There is no demonstrated aneurysm of the [place]. . AORTIC ARCH: Normal visualized aortic arch. Normal origins of the brachiocephalic, left common carotid, and left subclavian arteries. RIGHT CAROTID ARTERIES: Mild multifocal calcific plaquing of the right common carotid artery (CCA). Moderate to severe calcific plaquing of the right common carotid bulb. Mild calcific plaquing of the origin of the right internal carotid (ICA) artery without a hemodynamically significant stenosis. Normal visualized cervical portion of the right internal carotid artery. Normal origin of the right external carotid artery (ECA). LEFT CAROTID ARTERIES: Mild multifocal calcific plaquing of the left common carotid artery (CCA). Moderate to severe calcific plaquing of the left common carotid bulb. Moderate calcific plaquing of the origin of the left internal carotid (ICA) artery without a hemodynamically significant stenosis. Normal visualized cervical portion of the left internal carotid artery. Normal origin of the left external carotid artery (ECA). 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 Occluded left vertebral with reconstitution distally criteria Atherosclerotic changes in the brain with severe segmental stenosis of the M1/2 junction of the right middle cerebral artery Electronically Signed: Sameer Aparicio MD at 21:16 EDT ,
--- NOTE | 2022-08-01 20:07 | EDS_ITS ---
HPI History of Present Illness Chief Complaint: Dizziness Informant: patient Onset/Context/Timing Onset: - (Frequent episodes recently, this episode started 5:30 PM this evening.) Narrative Narrative: Patient presents secondary to dizziness. He states he was eating dinner tonight at 530 when he felt like his eyes started rolling and things started spinning. It is somewhat worse when he turns his head. He states he has been having similar episodes of dizziness recently that have been occurring up to a couple times a week. He states he had a bad episode yesterday where he got nauseated and sweaty, but really did not have a lot of dizziness. Today he states is almost opposite where he has dizziness but does not feel nauseated or sweaty. He denies chest pain or palpitations. He has been having neck pain and recently had x-rays. He believes his doctor is referring him to an orthopedic surgeon. He states he has had carotid studies done in the past that were equivocal and no recommendation for surgery was made. [facility] Medical History Acute kidney injury Anemia Anxiety Anxiety and depression Atrial fibrillation Atrial fibrillation with RVR (03/28/20) BPH (benign prostatic hyperplasia) Cancer Carotid stenosis Current use of insulin Depression Diabetes Diabetes mellitus, type II Dyspnea Essential (primary) hypertension GERD (gastroesophageal reflux disease) High cholesterol History of non-ST elevation myocardial infarction (NSTEMI) (03/28/20) Hodgkin disease Hyperlipidemia Hypertension Hypothyroidism Lactic acidosis Low testosterone Morbid obesity with BMI of 45.0-49.9, adult Nephrolithiasis Non-smoker Obesity KIANNA (obstructive sleep apnea) Polyneuropathy due to type 2 diabetes mellitus Sleep apnea TIA (transient ischemic attack) (2018) Vision loss of left eye Vision loss of right eye Home Medications levothyroxine 125 mcg tablet 125 mcg PO DAILY thyroid 05/03/15 [History Last Taken 05/09/22] pantoprazole 40 mg tablet,delayed release (Protonix) 40 mg PO DAILY acid reflux 05/03/15 [History Last Taken 06/19/21 07:00] tamsulosin 0.4 mg capsule 0.4 mg PO DAILY prostate 09/08/15 [History Last Taken 05/09/22] buspirone 10 mg tablet 10 mg PO TID PRN anxiety 04/17/18 [History Last Taken 06/19/21 07:00] duloxetine 60 mg capsule,delayed release (Cymbalta) 60 mg PO DAILY depression 04/17/18 [History Last Taken 06/19/21 07:00] aspirin 81 mg chewable tablet 81 mg PO DAILY@0800 03/30/20 [Rx Last Taken 05/09/22] 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 meter,continuous (Dexcom G6 Grinding Wheel Dresser) #1 ea 07/26/20 [Rx Last Taken Unknown] pen needle, diabetic 31 gauge x 5/16 #1,200 ea 12/22/20 [History Last Taken Unknown] pen needle, diabetic 32 gauge x 5/32 (BD Ultra-Fine Kiki Pen Needle) #150 ea 06/01/21 [Rx Last Taken Unknown] atorvastatin 80 mg tablet (Lipitor) 80 mg PO QHS 09/04/21 [History Last Taken Unknown] metoprolol succinate 100 mg tablet,extended release 24 hr 100 mg PO DAILY #90 tabs 12/08/21 [Rx Last Taken 05/09/22] 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 sensor (Dexcom G6 Sensor device) #3 ea 12/29/21 [Rx Last Taken Unknown] 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 transmitter (Dexcom G6 Transmitter device) #1 ea 12/29/21 [Rx Last Taken Unknown] amlodipine 10 mg tablet 10 mg PO DAILY #30 tabs 01/25/22 [Rx Last Taken 05/09/22] glimepiride 4 mg tablet (Amaryl) 4 mg PO BID #180 tabs 03/12/22 [Rx Last Taken Unknown] spironolactone 50 mg tablet 50 mg PO DAILY #90 tabs 05/21/22 [Rx Last Taken Unknown] apixaban 5 mg tablet (Eliquis) 5 mg PO BID #180 tabs 05/22/22 [Rx Last Taken Unknown] furosemide 40 mg tablet (Lasix) 40 mg PO BID 08/01/22 [History Last Taken Unknown] insulin glargine U-300 conc 300 unit/mL (1.5 mL) subcutaneous pen (Toujeo SoloStar U-300 Insulin) 55 unit subcut DAILY diabetes 08/01/22 [History Last Taken Unknown] insulin lispro 100 unit/mL subcutaneous pen (Humalog KwikPen (U-100) Insulin) 25 unit subcut TIDCM 08/01/22 [History Last Taken Unknown] lisinopril 40 mg tablet 40 mg PO BID 08/01/22 [History Last Taken Unknown] Allergy/AdvReac Type Severity Reaction Status Date / Time metoclopramide HCl Allergy Anaphylaxis Verified 08/01/22 19:10 [From Reglan] Family History Brother Heart disease Other Alcohol abuse Arthritis CVA (cerebral vascular accident) Diabetes ulcer disease Surgical History History of left heart catheterization (2009) History of thoracentesis (2015) Hx of nephrolithotomy with removal of calculi Social History household members: spouse and none Smoking Status: Never smoker Electronic Cigarette Use: not used second hand exposure: No alcohol intake: never substance use type: does not use what type of physical activity do you participate in: none ROS ROS ED Constitutional Constitutional ED: Denies chills or fever(s) Eyes Eyes: Denies change in vision or discharge from eye(s) ENT ENT ED: Denies discharge from eye(s), rhinorrhea or sore throat Cardiovascular Cardiovascular: Denies chest pain or palpitations Respiratory/Chest Respiratory/Chest: Denies cough or dyspnea Gastrointestinal Gastrointestinal: Denies abdominal pain, nausea or vomiting Genitourinary Genitourinary ED: Denies difficulty urinating or dysuria Musculoskeletal Musculoskeletal: Reports neck pain; Denies back pain or extremity pain Integumentary Denies Abrasions or rash Neurologic Neurologic: Reports headache(s); Denies weakness Allergic/Immunologic Allergic/Immunologic ED: Denies lip swelling or urticaria EXAM Physical Exam Const Vital Signs: 08/01/22 19:07 08/01/22 19:56 08/01/22 20:28 Temperature 98.1 F Temperature Source Temporal Pulse Rate 96 Respiratory Rate 18 Respiratory Effort Normal Non-Labored Respiratory Pattern Normal Blood Pressure 148/82 H Blood Pressure Mean 104 Pulse Ox 99 Oxygen Delivery Method Room Air Room Air 08/01/22 19:56 08/01/22 21:54 08/01/22 23:17 Temperature Temperature Source Pulse Rate 81 106 H Respiratory Rate 17 20 H 23 H Respiratory Effort Respiratory Pattern Blood Pressure 149/79 H 156/97 H 158/101 H Blood Pressure Mean 102 116 120 Pulse Ox 97 99 Oxygen Delivery Method Room Air Room Air 08/01/22 23:29 Temperature 97.5 F L Temperature Source Oral Pulse Rate 108 H Respiratory Rate 21 H Respiratory Effort Respiratory Pattern Blood Pressure 158/101 H Blood Pressure Mean 120 Pulse Ox 98 Oxygen Delivery Method Room Air Positive well nourished and well developed General Appearance ED: well developed HEENT Reports normocephalic and head/scalp atraumatic Eyes PERRL and EOMs intact bilaterally Eyes Narrative: Rotary nystagmus noted. Neck supple Chest Wall inspection of chest normal and palpation of chest normal Resp normal respiratory effort and clear to auscultation bilaterally Cardio regular rate and regular rhythm GI normal to inspection, nondistended, normoactive bowel sounds Palpation: soft Extremity normal to inspection Neuro oriented x3 and no sensory deficits noted Neuro Narrative: NIH equals 0 Sensorium / Orientation: alert Motor Exam: strength 5/5 throughout Psych mental status grossly normal Skin no rashes or lesions noted MDM MDM MDM Narrative Medical decision making narrative: Patient placed on ekg monitor tech. EKG obtained to evaluate for cardiac arrhythmia/ischemia. Labwork obtained to evaluate for leukocytosis, anemia, and electrolyte derangement. Chest x-ray obtained to evaluate for acute lung pat hology, cardiac size, or mediastinal abnormality. CTA of the head and neck obtained given concern for CVA component of his vertigo. Patient was given Antivert. Lab Data Attestation: I reviewed the patient's lab results. Labs: Laboratory Results - last 24 hr 08/01/22 08/01/22 08/01/22 19:18 19:18 19:18 WBC 7.4 RBC 4.72 Hgb 11.8 L Hct 36.8 L MCV 78.0 L MCH 25.0 L MCHC 32.1 RDW Std Deviation 45.6 H RDW Coeff of Gavi 16.2 H Plt Count 216 MPV 9.9 Immature Gran % (Auto) 0.400 Neut % (Auto) 70.4 H Lymph % (Auto) 13.4 L [place] % (Auto) 11.7 H Eos % (Auto) 3.4 Baso % (Auto) 0.7 Absolute Neuts (auto) 5.2 Absolute Lymphs (auto) 0.99 Nucleated RBC % 0 PT 13.8 INR 1.1 APTT 28.7 Sodium 134 L Potassium 4.1 Chloride 104 Carbon Dioxide 23.0 Anion Gap 7 BUN 30 H Creatinine 1.21 Est GFR (MDRD) Af Amer 79 Est GFR (MDRD) Non-Af 65 BUN/Creatinine Ratio 24.8 H Glucose 262 H Calcium 9.0 Troponin I High Sens 08/01/22 19:18 WBC RBC Hgb Hct MCV MCH MCHC RDW Std Deviation RDW Coeff of Gavi Plt Count MPV Immature Gran % (Auto) Neut % (Auto) Lymph % (Auto) [place] % (Auto) Eos % (Auto) Baso % (Auto) Absolute Neuts (auto) Absolute Lymphs (auto) Nucleated RBC % PT INR APTT Sodium Potassium Chloride Carbon Dioxide Anion Gap BUN Creatinine Est GFR (MDRD) Af Amer Est GFR (MDRD) Non-Af BUN/Creatinine Ratio Glucose Calcium Troponin I High Sens 9 Radiography Chest X-Ray - ED: 1 View, Read by ED Physician, Chronic Changes and No Infiltrates Diagnostic Testing: Clinical Impression(s) from Imaging Studies Chest X-Ray 08/01/22 19:38 IMPRESSION: Mild chronic interstitial changes in the lower lobes. No acute cardiopulmonary pathology. Electronically Signed: Sameer Aparicio MD at 19:51 EDT , Head/Neck CTA 08/01/22 20:02 IMPRESSION: Moderate to severe atherosclerotic plaquing of the extracranial carotids without evidence for hemodynamically significant stenosis utilizing a NASCET . 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 Occluded left vertebral with reconstitution distally criteria Atherosclerotic changes in the brain with severe segmental stenosis of the M1/2 junction of the right middle cerebral artery N.B. : The above Results were Read Back by Sameer Aparicio MD to Nely Hill MD, and understanding confirmed on 08/01/2022 21:26:38 (ET). Electronically Signed: Sameer Aparicio MD at 21:16 EDT Reading Location ID and State: [facility] / [place] , Service support , EKG Initial EKG: Attestation: I personally reviewed and interpreted this EKG as follows: Interpretation: Sinus Tachycardia (Sinus tach at 101. No acute ischemia.) Management Discussion w/another healthcare provider: Hospitalist, Radiologist and Other (Neurology at [facility]) Treatment and Re-Evaluation :: RestartCBC was normal white count at 7.4 with a hemoglobin 11.8. He is remarkable for BUN of 30 and a creatinine 1.21. Glucose is elevated at 262. Coags are unremarkable. Troponin is normal at 9. EKG reveals no evidence of acute ischemia. Chest x-ray per my interpretation feels chronic changes with no infiltrate. Radiology interpretation is reviewed. CTA of the head and neck reveals moderate to severe atherosclerotic plaquing of the extracranial carotids without evidence of hemodynamically significant stenosis. There is an occluded left vertebral with reconstitution distally. Atherosclerotic changes are noted in the brain with severe segmental stenosis of the M1/2 junction of the right middle cerebral artery. Radiologist called me specifically to bring to my attention the stenosis noted in the right MCA. He stated that he was not sure any intervention could be done but wanted to bring it to our attention. I spoke with neurology at [facility]. Given that the patient is already on dual therapy with aspirin and Eliquis, he recommended MRI in the morning. If any significant findings are noted we can reconsult them regarding further recommendations for possible triple therapy. Patient is discussed with the hospitalist and patient admitted to the floor for further treatment and evaluation. Discharge Plan Triage Chief Complaint: Dizziness ED Provider: Nely Hill Dx/Rx/DC Orders Clinical Impression: Vertigo Prescriptions: No Action (DME) Dexcom G6 Grinding Wheel Dresser Misc See Rx Instructions .ROUTE .MEDSUPPLY Qty: 1 0RF Rx Instructions: As directed (DME) pen needle, diabetic 31 gauge x 5/16 needle See Rx Instructions .ROUTE .MEDSUPPLY Qty: 1200 Label Comments: use 1 PEN NEEDLE to inject MEDICATION subcutaneously as directed Rx Instructions: As directed (DME) pen needle, diabetic [BD Ultra-Fine Kiki Pen Needle] 32 gauge x 5/32 needle See Rx Instructions .ROUTE .MEDSUPPLY Qty: 150 6RF Rx Instructions: As directed spironolactone 50 mg tablet 50 mg PO DAILY Qty: 90 3RF pantoprazole [Protonix] 40 MG tablet 40 mg PO DAILY levothyroxine 125 MCG tablet 125 mcg PO DAILY tamsulosin 0.4 MG capsule 0.4 mg PO DAILY buspirone 10 MG tablet 10 mg PO TID PRN Label Comments: TAKE ONE TABLET BY MOUTH THREE TIMES DAILY duloxetine [Cymbalta] 60 MG capsule,delayed release(DR/EC) 60 mg PO DAILY Label Comments: TAKE ONE CAPSULE BY MOUTH DAILY aspirin 81 MG tablet,chewable 81 mg PO DAILY@0800 0RF atorvastatin [Lipitor] 80 MG tablet 80 mg PO QHS Rx Instructions: cholesterol furosemide [Lasix] 40 mg tablet 40 mg PO BID lisinopril 40 mg tablet 40 mg PO BID Rx Instructions: blood pressure insulin lispro [Humalog KwikPen Insulin] 100 unit/mL insulin pen 25 unit subcut TIDCM Toujeo SoloStar U-300 Insulin 300 unit/mL (1.5 mL) insulin pen 55 unit SUBCUT DAILY metoprolol succinate 100 mg tablet extended release 24 hr 100 mg PO DAILY Qty: 90 3RF (DME) Dexcom G6 Sensor Device See Rx Instructions .ROUTE .MEDSUPPLY Qty: 3 6RF Rx Instructions: As directed (DME) Dexcom G6 Transmitter Device See Rx Instructions .ROUTE .MEDSUPPLY Qty: 1 3RF Rx Instructions: As directed amlodipine 10 mg tablet 10 mg PO DAILY Qty: 30 11RF glimepiride [Amaryl] 4 mg tablet 4 mg PO BID Qty: 180 1RF Eliquis 5 mg tablet 5 mg PO BID Qty: 180 3RF Primary Care Provider: Radha Khan Referrals: Radha Khan MD [Primary Care Provider] - Disposition Disposition: Acute Care [facility]
[2022-08-01] MEDS: 0.9% Normal Saline 1,000 ML 50 ML IV (20:34)
[2022-08-01] MEDS: fentaNYL 100 MCG/2 ML Ampul 25 MCG IV (20:35)
[2022-08-01] MEDS: Meclizine HCl 25 MG Tablet PO (20:35)
[2022-08-01 20:40] LABS: Troponin-I HS 9 pg/mL (3.0-78.0)
--- NOTE | 2022-08-01 20:55 | ED.RN ---
NIHSS COMPLETED PER ED MD
[2022-08-01 21:54] VITALS: BP 156/97; PULSE 106; RESP 20; O2SAT 99
--- NOTE | 2022-08-01 22:32 | PCM.HP.STD ---
HPI - General General Date of Admission: 08/01/22 Date of Service: 08/01/22 Chief Complaint: Recurrent vertigo, posterior headaches. HPI Narrative The is a 56 y/o M w/ PMHx: Anxiety and Depression, Morbid Obesity, Chronic anemia, Chronic Diastolic CHF, PAF, HTN, HLD, KIANNA on BIPAP q HS, Carotid disease, HTN, HLD, History of Hodgkin's disease, Hypothyroidism, Diabetes mellitus type II with chronic neuropathy, Hx TIA who presents to the [facility] ED on 08/01/22 with history of ongoing issues with intermittent posterior headaches described as throbbing and aching with no light or sound sensitivity rated 2-3 out of 10 in severity since March with onset over the last several weeks intermittent issues with now onset of not only headache but episodes of lightheadedness, dizziness and vertiginous symptoms although these seem to be short-lived patient reports he would still be able to be up and moving with worsening symptoms specifically the vertiginous symptoms with specific movement of his head however this usually abated but upon current presentation it was intractable with associated nausea and emesis prompting eventual ED evaluation. The episode upon his current presentation started approximately 5:30 PM while eating dinner with onset of similar symptoms with concurrent bilateral nystagmus which has been similar to previous as well. In the ED work-up included T98.1, heart rate 96, BP 148/82, respiratory rate 18, 99% on room air, CBC with WC 7.4, hemoglobin 11.8, MCV 78, platelet 216 without marked shift, unremarkable coags, BMP with sodium 134, BUN/creatinine 30/1.21, glucose 262, troponin 9, chest x-ray with mild chronic interstitial changes in both lower lobes with no acute cardiopulmonary findings otherwise, CTA head and neck with moderate to severe atherosclerotic plaquing of the extracranial carotids without any evidence of hemodynamically significant stenosis, occluded left vertebral with reconstitution distally, atherosclerotic changes in the brain with severe segmental stenosis of the M1/2 junction of the right middle cerebral artery, EKG with sinus tachycardia with no acute evidence of ischemia. ED physician given MRI findings did contact [facility] tel[facility]roke and reviewed to ensure that there was no required or potential intervention for the severe segmental stenosis noted of the right middle cerebral artery. The neurology service noted that there was no intervention specifically that would be done but recommended continued admission with stroke work-up including MRI of the brain. In the ED patient administered low-dose IV fluids, fentanyl 25 mcg IV x1, meclizine 25 mg p.o. x1. [facility] Medical History (Updated 08/02/22 @ 02:[address] Cookie Bell MD) Anemia Anxiety and depression Atrial fibrillation BPH (benign prostatic hyperplasia) Carotid stenosis Congestive heart failure (CHF) Diabetes mellitus, type II Essential (primary) hypertension GERD (gastroesophageal reflux disease) High cholesterol History of non-ST elevation myocardial infarction (NSTEMI) (03/28/20) Hodgkin disease Hyperlipidemia Hypertension Hypothyroidism Low testosterone Morbid obesity with BMI of 45.0-49.9, adult Nephrolithiasis Non-smoker Obesity KIANNA treated with BiPAP TIA (transient ischemic attack) (2018) Vision loss of left eye Vision loss of right eye Home Medications levothyroxine 125 mcg tablet 125 mcg PO DAILY thyroid 05/03/15 [History Last Taken 05/09/22] pantoprazole 40 mg tablet,delayed release (Protonix) 40 mg PO DAILY acid reflux 05/03/15 [History Last Taken 06/19/21 07:00] tamsulosin 0.4 mg capsule 0.4 mg PO DAILY prostate 09/08/15 [History Last Taken 05/09/22] buspirone 10 mg tablet 10 mg PO TID PRN PRN Anxiety 04/17/18 [History Last Taken 06/19/21 07:00] duloxetine 60 mg capsule,delayed release (Cymbalta) 60 mg PO DAILY depression 04/17/18 [History Last Taken 06/19/21 07:00] aspirin 81 mg chewable tablet 81 mg PO DAILY@0800 03/30/20 [Rx Last Taken 05/09/22] 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 meter,continuous (Dexcom G6 Cadd Operator) #1 ea 07/26/20 [Rx Last Taken Unknown] pen needle, diabetic 31 gauge x 5/16 #1,200 ea 12/22/20 [History Last Taken Unknown] pen needle, diabetic 32 gauge x 5/32 (BD Ultra-Fine Kiki Pen Needle) #150 ea 06/01/21 [Rx Last Taken Unknown] atorvastatin 80 mg tablet (Lipitor) 80 mg PO QHS 09/04/21 [History Last Taken Unknown] metoprolol succinate 100 mg tablet,extended release 24 hr 100 mg PO DAILY #90 tabs 12/08/21 [Rx Last Taken 05/09/22] 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 sensor (Dexcom G6 Sensor device) #3 ea 12/29/21 [Rx Last Taken Unknown] 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 transmitter (Dexcom G6 Transmitter device) #1 ea 12/29/21 [Rx Last Taken Unknown] amlodipine 10 mg tablet 10 mg PO DAILY #30 tabs 01/25/22 [Rx Last Taken 05/09/22] glimepiride 4 mg tablet (Amaryl) 4 mg PO BID #180 tabs 03/12/22 [Rx Last Taken Unknown] spironolactone 50 mg tablet 50 mg PO DAILY #90 tabs 05/21/22 [Rx Last Taken Unknown] apixaban 5 mg tablet (Eliquis) 5 mg PO BID #180 tabs 05/22/22 [Rx Last Taken Unknown] furosemide 40 mg tablet (Lasix) 40 mg PO BID 08/01/22 [History Last Taken Unknown] insulin glargine U-300 conc 300 unit/mL (1.5 mL) subcutaneous pen (Toujeo SoloStar U-300 Insulin) 55 unit subcut DAILY diabetes 08/01/22 [History Last Taken Unknown] insulin lispro 100 unit/mL subcutaneous pen (Humalog KwikPen (U-100) Insulin) 25 unit subcut TIDCM 08/01/22 [History Last Taken Unknown] lisinopril 40 mg tablet 40 mg PO BID 08/01/22 [History Last Taken Unknown] Allergy/AdvReac Type Severity Reaction Status Date / Time metoclopramide HCl Allergy Anaphylaxis Verified 08/01/22 19:10 [From Reglan] Family History (Updated 08/02/22 @ 02:[address] Cookie Bell MD) Brother Heart disease Mother CVA (cerebral vascular accident) Hypertension Rheumatoid arthritis Father Diabetes Other Alcohol abuse ulcer disease Surgical History History of left heart catheterization (2009) History of thoracentesis (2015) Hx of nephrolithotomy with removal of calculi Social History household members: spouse and none Smoking Status: Never smoker Electronic Cigarette Use: not used second hand exposure: No alcohol intake: never substance use type: does not use what type of physical activity do you participate in: none ROS ROS Narrative Admission Review of Systems: CONSTITUTIONAL: No weight loss, fever, chills, + weakness or fatigue. HEENT: + Bilateral eye nystagmus, rotational toward the right with associated vertigo, room spinning, posterior headache. Eyes: No blurred vision, double vision or yellow sclerae. Ears, Nose, Throat: No hearing loss, sneezing, congestion, runny nose or sore throat. SKIN: No rash or itching, lesions, wounds. CARDIOVASCULAR: No chest pain, chest pressure or chest discomfort, palpitations, edema, orthopnea, syncopal events. RESPIRATORY: No shortness of breath, cough or sputum, wheezing, hemoptysis. GASTROINTESTINAL: + anorexia, nausea, vomiting. No diarrhea, abdominal pain, melena, BRBPR. GENITOURINARY: No dysuria, frequency, urgency or retention. NEUROLOGICAL: + Posterior headache with vertigo, lightheadedness, dizziness. No syncope, paralysis, ataxia, numbness or tingling in the extremities, focal weakness, change in bowel or bladder control, seizure. MUSCULOSKELETAL: + muscle, back pain, joint pain or stiffness. HEMATOLOGIC: + anemia, bleeding or bruising. LYMPHATICS: No enlarged nodes. No history of splenectomy. PSYCHIATRIC: + history of depression or anxiety. ENDOCRINOLOGIC: No reports of sweating, cold or heat intolerance. No polyuria or polydipsia. ALLERGIES: + History of anaphylaxis. Vital Signs Vital Signs Vital Signs: 08/01/22 19:07 08/01/22 19:56 08/01/22 20:28 Temperature 98.1 F Temperature Source Temporal Pulse Rate 96 Respiratory Rate 18 Respiratory Effort Normal Non-Labored Respiratory Pattern Normal Blood Pressure 148/82 H Blood Pressure Mean 104 Pulse Ox 99 Oxygen Delivery Method Room Air Room Air 08/01/22 19:56 08/01/22 21:54 Temperature Temperature Source Pulse Rate 81 106 H Respiratory Rate 17 20 H Respiratory Effort Respiratory Pattern Blood Pressure 149/79 H 156/97 H Blood Pressure Mean 102 116 Pulse Ox 97 99 Oxygen Delivery Method Room Air Room Air Weight Weight: 309 lb 15.519 oz Body Mass Index (BMI) 45.8 Physical Exam Narrative Physical Examination: General: Awake, alert, oriented x 3 and cooperative, seated upright in the ED bed, fatigued, keeping his eyes closed secondary to ongoing vertigo when he opens his eyes with persistent nystagmus. Skin: Normal color, normal turgor, no icterus, no cyanosis. HEENT: AT/NC, EOMI but difficult assessment as ongoing persistent clockwise rotational toward the right bilateral eye nystagmus, PERRLA, dry MM, no carotid bruits or JVD noted. Lungs: Diminished, greater bases, appropriate effort, no rales, ronchi or wheezing. Heart: Currently regular rate and rhythm; no gallop, rub audible. Abdomen: Soft, morbidly obese, NTTP, no obvious distention, mildly hyperactive BS, difficult to ascertain HSM secondary to habitus. Extremities: No cyanosis, no clubbing, chronic lower extremity nonpitting edema. Neurological: Patient awake, alert, oriented as noted, cognitive function intact; pupils equally reactive to light and accommodation, cranial nerves grossly normal except ongoing persistent as noted clockwise rotational nystagmus toward the right bilaterally, moving all 4 extremities, no focal deficits, strength moderately to severely global decrease secondary to acute complaints, sensation intact, difficulty performing FTS secondary to need to keep his eyes closed, HTS intact, equivocal Babinski. Psychiatric: Affect appears fatigued, ill-appearing, no acute evidence of depressive or anxiety feelings but does have underlying history. Results Lab / Micro Data Result Diagrams: 08/01/22 19:18 08/01/22 19:18 Labs: Laboratory Results - last 24 hr 08/01/22 19:18: WBC 7.4, RBC 4.72, Hgb 11.8 L, Hct 36.8 L, MCV 78.0 L, MCH 25.0 L, MCHC 32.1, RDW Std Deviation 45.6 H, RDW Coeff of Gavi 16.2 H, Plt Count 216, MPV 9.9, Immature Gran % (Auto) 0.400, Neut % (Auto) 70.4 H, Lymph % (Auto) 13.4 L, [place] % (Auto) 11.7 H, Eos % (Auto) 3.4, Baso % (Auto) 0.7, Absolute Neuts (auto) 5.2, Absolute Lymphs (auto) 0.99, Nucleated RBC % 0 08/01/22 19:18: PT 13.8, INR 1.1, APTT 28.7 08/01/22 19:18: Sodium 134 L, Potassium 4.1, Chloride 104, Carbon Dioxide 23.0, Anion Gap 7, BUN 30 H, Creatinine 1.21, Est GFR (MDRD) Af Amer 79, Est GFR (MDRD) Non-Af 65, BUN/Creatinine Ratio 24.8 H, Glucose 262 H, Calcium 9.0 08/01/22 19:18: Troponin I High Sens 9 Radiology Impression Chest X-Ray 08/01/22 19:38 IMPRESSION: Mild chronic interstitial changes in the lower lobes. No acute cardiopulmonary pathology. Electronically Signed: Sameer Aparicio MD at 19:51 EDT , Head/Neck CTA 08/01/22 20:02 IMPRESSION: Moderate to severe atherosclerotic plaquing of the extracranial carotids without evidence for hemodynamically significant stenosis utilizing a NASCET . Occluded left vertebral with reconstitution distally criteria Atherosclerotic changes in the brain with severe segmental stenosis of the M1/2 junction of the right middle cerebral artery Electronically Signed: Sameer Aparicio MD at 21:16 EDT , ADDENDUM: 08/01/222132 IMPRESSION: Moderate to severe atherosclerotic plaquing of the extracranial carotids without evidence for hemodynamically significant stenosis utilizing a NASCET . Occluded left vertebral with reconstitution distally criteria Atherosclerotic changes in the brain with severe segmental stenosis of the M1/2 junction of the right middle cerebral artery N.B. : The above Results were Read Back by Sameer Aparicio MD to Nely Hill MD, and understanding confirmed on 08/01/2022 21:26:38 (ET). Electronically Signed: Sameer Aparicio MD at 21:16 EDT , Assessment & Plan Assessment/Plan (1) Vertigo: PLAN: Plan The is a 56 y/o M w/ PMHx: Anxiety and Depression, Morbid Obesity, Chronic anemia, Chronic Diastolic CHF, PAF, HTN, HLD, KIANNA on BIPAP q HS, Carotid disease, HTN, HLD, History of Hodgkin's disease, Hypothyroidism, Diabetes mellitus type II with chronic neuropathy, Hx TIA who presents to the [facility] ED on 08/01/22 with history of ongoing issues with intermittent posterior headaches described as throbbing and aching with no light or sound sensitivity rated 2-3 out of 10 in severity since March with onset over the last several weeks intermittent issues with now onset of not only headache but episodes of lightheadedness, dizziness and vertiginous symptoms although these seem to be short-lived patient reports he would still be able to be up and moving with worsening symptoms specifically the vertiginous symptoms with specific movement of his head however this usually abated but upon current presentation it was intractable with associated nausea and emesis prompting eventual ED evaluation. #1. Recurrent vertigo with associated posterior headaches concerning for possible posterior CVA with history of prior TIA: We will admit to PCU, will obtain MRI Brain, will obtain ECHO, PT/OT/Speech/Nutrition evaluation per protocol. Will allow permissive HTN, maintain on asa and continue patient chronic apixaban regimen, continue home statin w/ AM FLP, fall precautions. FLP, HgbA1c, magnesium, TSH level requested. We will maintain on fall precautions. We will have as needed Valium for vertiginous symptoms. Once this work-up is obtained would plan to reassess for Neurology consultation. #2. Chronic Diastolic CHF: 06/19/2021 echocardiogram with moderately dilated LV, normal LV systolic function, EF 65%, stage I diastolic dysfunction. We will continue patient home aspirin, extubated, statin therapy, temporarily holding patient metoprolol, spironolactone, Lasix as well as lisinopril regimen for permissive head retention given acute presentation #1, add back once appropriate. Will judiciously hydrate given this history. #3. PAF: Temporally holding patient metoprolol for permissive hypertension, add back once appropriate, continue patient home apixaban regimen. #4. Carotid disease: Noted prior history, CTA head and neck with moderate to severe atherosclerotic plaquing of the extracranial carotids with no significant stenosis, will continue aspirin, Eliquis, statin therapy, hypertensive regimen temporarily held given permissive hypertension presentation as noted, add back once appropriate. #5. Hypertension: Given acute presentation we will maintain permissive hypertension with as needed agents per stroke protocol, add back oral regimen once appropriate. #6. Hyperlipidemia: We will continue patient on statin therapy, FLP in AM. #7. Diabetes mellitus type II with chronic neuropathy: Hold oral home regimen, continue home insulin regimen, ADA diet, accu checks w/ ISS, hemoglobin A1c requested with nutrition consultation in addition given acute presentation #1. #8. Hypothyroidism: We will continue patient on levothyroxine regimen, TSH requested. #9. Chronic anemia, microcytic: Admission hemoglobin 11.8, MCV 78, baseline hemoglobin 11, stable, continue to trend. #10. Anxiety and depression: Will continue patient home cymbalta and buspar regimen. #11. BPH: We will continue patient home Flomax regimen. #12. GERD: We will continue patient home PPI. #13. Hodgkin's disease: Unclear specific cancer details, status post chemotherapy as well as radiation, presumed in remission. #14. Morbid Obesity: Weight loss and lifestyle changes encouraged, nutrition consulted. #15. KIANNA: BiPAP nightly. #16. DVT prophylaxis: SCDs, Lovenox. #17. CODE status: Patient HCPOA is his and living will is currently in place. Discussed CODE status at length including difference between FULL code, DNR-CCA and DNR-CC status. Following discussions about the differences in these status, requested Full Code status. Advanced Care Planning Face to Face Time: 16 minutes. Admission Evaluation Time spent evaluating chart, patient history, patient evaluation, care planning and discussion with specialists: 75 minutes. Charges/Coding Visit Charges Inpatient E&M: 98494 Init Hosp L3 Procedures Hospitalists Procedures: 22993 Advncd Care Plan 30 Min
[2022-08-01 23:17] VITALS: BP 158/101; RESP 23
[2022-08-01 23:29] VITALS: BP 158/101; PULSE 108; RESP 21; TEMP 36.4; O2SAT 98
[2022-08-02] VITALS (9 sets, daily range): BP systolic 128–193; BP diastolic 75–98; PULSE 101–132; RESP 16–18; TEMP 36.6–37; O2SAT 94–98; BMI 45.8; BMI 45.9
[2022-08-02 00:05] LABS: Magnesium 1.7 mg/dL (1.6-2.6)
--- NOTE | 2022-08-02 00:31 | ECHOCS_ITS ---
Reason For Study: cva Procedure This was a 2D Doppler, Color Flow transthoracic echocardiogram. The study was technically difficult. Due to body habitus. Limited views were obtained. Exam performed portable in patient room. Left Ventricle Normal LV size. Mild concentric left ventricular hypertrophy. The left ventricular ejection fraction is 60 %. Right Ventricle Normal right ventricle. Atria The left atrium is moderately enlarged. The right atrium is not well visualized. Mitral Valve The mitral valve is structurally normal. No prolapse or stenosis seen. Tricuspid Valve The tricuspid valve is not well visualized. Aortic Valve Normal aortic valve. Pulmonic Valve The pulmonic valve is not well visualized. Great Vessels Normal sized aortic root. Pericardium/Pleural No pericardial effusion. Medication Diluted definity 3.0ml given slow IV push to enhance endocardial definition. MMode/2D Measurements & Calculations RVDd: 3.6 cm Ao root diam: 3.5 cm LAV(MOD-bp): 57.4 ml LAV(MOD-bp) Indexed: 23.1 ml/m2 LAV(MOD-sp2): 65.0 ml LAV(MOD-sp4): 49.0 ml SV(MOD-sp4): 47.8 ml LVAd ap4: 27.6 cm2 LVAd ap2: 29.0 cm2 LVLd ap4: 7.9 cm LVLd ap2: 8.1 cm EDV(MOD-sp4): 78.1 ml EDV(MOD-sp2): 88.1 ml EDV(sp4-el): 82.2 ml EDV(sp2-el): 88.4 ml LVAs ap4: 15.4 cm2 LVAs ap2: 18.4 cm2 LVLs ap4: 6.6 cm LVLs ap2: 7.2 cm ESV(MOD-sp4): 30.3 ml ESV(MOD-sp2): 38.6 ml ESV(sp4-el): 30.7 ml ESV(sp2-el): 40.3 ml EF(MOD-sp4): 61.2 % EF(MOD-sp2): 56.1 % EF(sp4-el): 62.6 % SV(MOD-sp2): 49.4 ml SV(sp4-el): 51.5 ml LA A4 area: 17.9 cm2 LA dimension(2D): 5.1 cm Doppler Measurements & Calculations MV E max chin: 77.2 cm/sec Lat Peak E' Chin: 12.1 cm/sec Med Peak E' Chin: 5.5 cm/sec MV A max chin: 129.4 cm/sec E/E' lat: 6.4 E/E' med: 14.1 MV E/A: 0.60 Ao V2 max: 153.4 cm/sec LV V1 max: 104.4 cm/sec PA V2 max: 140.1 cm/sec Ao max P.4 mmHg LV V1 max P.4 mmHg Ao V2 mean: 111.9 cm/sec LV V1 mean P.4 mmHg Ao mean P.7 mmHg LV V1 mean: 74.8 cm/sec Ao V2 VTI: 26.6 cm LV V1 VTI: 18.0 cm AV (velocity ratio): 0.68 ECHO/Echo Complete W/ Contrast Interpretation Summary Technically difficult study. Mild concentric left ventricular hypertrophy. The left ventricular ejection fraction is 60 %. The left atrium is moderately enlarged. Ordering Physician: Cookie Bell Referring Physician: Radha Khan Performed By: Bijal Faust, DIANA, RVT
--- NOTE | 2022-08-02 00:31 | MRI_ITS ---
STUDY: MRI BRAIN WITHOUT CONTRAST REASON FOR EXAM: Male, 56 years old. CVA, vertigo TECHNIQUE: Standardized multiplanar fat and water weighted pulse sequences were obtained. COMPARISON: 04/17/2018; 08/01/2022 CT and CTA HEMISPHERES, CEREBELLUM AND BRAINSTEM: 1. The cerebral parenchyma, ventricular system, subarachnoid spaces have normal configuration. There is a normal gyral pattern. There is normal carvalho/white differentiation. No midline shift.. 2. Mild subcortical and periventricular white matter FLAIR hyperintensities compatible with chronic microvascular ischemic change. 3. No intraparenchymal mass, hemorrhage, or acute territorial infarct. 4. The cerebellum, brainstem, basilar and suprasellar cisterns have normal appearance. No Chiari malformation. PITUITARY: Infundibulum and pituitary have normal configuration. Midline structures appear normal. CSF SPACES: Ex vacuo ventricular dilation is proportionate to global cerebral volume loss. Basal cisterns are patent. VESSELS: 1. There are normal flow voids noted in the great vessels at the skull base ORBITS AND PARANASAL SINUSES: 1. Both globes, extraocular muscles, optic nerves and retrobulbar fat appear unremarkable. 2. Paranasal sinuses are clear. BONY ELEMENTS: Bony elements of the cranial vault, facial skeleton and skull base have normal appearance. SCALP AND SOFT TISSUES: Normal appearance of the soft tissues of the scalp and the visualized face MRI/Brain without Contrast IMPRESSION: 1. No intracranial mass, hemorrhage, or acute territorial infarct. 2. No radiographically significant sinus disease. Electronically Signed: Clint Otto MD at 20:10 EDT ,
[2022-08-02] MEDS: diazePAM 2 MG Tablet PO (01:33)
--- NOTE | 2022-08-02 03:39 | CPS ---
Talked with pt , he does have some form of KIANNA but does not wear bipap or cpap at home. 98% RA
[2022-08-02] MEDS: Levothyroxine 125 MCG Tablet PO (05:26)
[2022-08-02 05:50] LABS: Absolute Lymphocyte Count 1.27 X10^3/uL (0.83-4.51); Absolute Neutrophil Count 3.5 X10^3/uL (2.0-7.7); Basophil# 0.05 X10^3/uL; Basophil% 0.8 % (0-1); Eosinophil# 0.18 X10^3/uL; Eosinophils% 3.1 % (0-5); Hematocrit 33.7 % (40-54); Hemoglobin 10.7 g/dL (13.0-16.5); Lymphocyte # 1.27 X10^3/ul (0.83-4.51); Lymphocyte % 21.5 % (19-41); Mean Corp Hgb Conc 31.8 g/dL (32-36); Mean Corpuscular Hgb 25.1 pg (27.0-32.0); Mean Corpuscular Volume 78.9 fL (80-94); Mean Platelet Vol. 9.9 fl (6.2-12.0); Monocyte# 0.85 X10^3/uL; Monocyte% 14.4 % (0-10); NRBC Flagged by Analyzer 0 % (0-5); Neutrophil # 3.52 X10^3/uL (2.7-7.7); Neutrophil % 59.7 % (47-70); Platelet Count 193 K/mm3 (150-450); RBC Distribution Width CV 16.4 % (11.6-14.6); RBC Distribution Width SD 46.5 fl (35.1-43.9); Red Blood Count 4.27 M/mm3 (4.6-6.2); White Blood Count 5.9 K/mm3 (4.4-11.0)
[2022-08-02 06:34] LABS: ALB/GLOB Ratio 0.7 RATIO (0.9-2.4); AST(SGOT) 18 U/L (15-37); Alanine Aminotransfer ALT/SGPT 25 U/L (16-61); Albumin, Serum 3.2 g/dL (3.2-5.0); Alkaline Phosphatase 118 U/L (45-117); Anion Gap 11 (5-15); BUN 21 mg/dL (7-18); BUN/Creat Ratio 21.7 RATIO (10-20); Chloride 104 mmol/L (98-107); Cholesterol 133 mg/dL (200); Creatinine, Serum 0.97 mg/dL (0.70-1.30); EST Glomerular Filtration Rate 84 mL/min (>60); Est Glom Filt Rate - Afr Amer 102 mL/min (>60); Estimated Creatinine Clearance 83.01 ml/min; Globulin 4.4 g/dL (2.2-4.2); Glucose 280 mg/dL (74-106); High Density Lipoprotein 33 mg/dL; Protein, Total 7.6 g/dL (6.4-8.2); Sodium Level 135 mmol/L (136-145); Thyroid Stim Hormone (TSH) 1.36 uIU/mL (0.358-3.74); Triglycerides 300 mg/dL; Very Low Density Lipoprotein 60 mg/dL (5-40)
[2022-08-02] MEDS: Insulin Lispro 100 UNIT/ML INSULN.PEN SC ×4 (08:00→22:15)
[2022-08-02] MEDS: APIXABAN 5 MG TABLET PO ×2 (08:22→22:13)
[2022-08-02] MEDS: Aspirin 81 MG TAB.CHEW PO (08:22)
[2022-08-02] MEDS: DULoxetine Hcl 60 MG Capsule PO (08:22)
[2022-08-02] MEDS: Tamsulosin HCl 0.4 MG Capsule PO (08:23)
[2022-08-02] MEDS: Pantoprazole Sodium 40 MG Tablet PO (08:23)
--- NOTE | 2022-08-02 08:28 | PN.HOSP_ITS ---
Reason for Visit Reason for Visit: Diagnoses Dizziness and giddiness (08/01/22) Subjective Subjective Patient is a 56-year-old male admitted with recurrent vertigo Objective Data Objective Data Vital Signs: Vital Signs Temp Pulse Resp BP Pulse Ox O2 Del Method 98.1 F 101 H 16 148/88 H 94 Room Air 08/02/22 05:00 08/02/22 05:00 08/02/22 05:00 08/02/22 05:00 08/02/22 05:00 08/02/22 05:00 Oxygen Delivery Method Room Air Weight: 140.7 kg Body Mass Index (BMI) 45.9 Intake & Output: Intake and Output for Last 24 Hours 07/31/22 08/01/22 08/02/22 23:59 23:59 23:59 Intake Total 314.17 / 314.17 Output Total 900 / 900 Balance -585.83 / -585.83 Lab / Micro Data Result Diagrams: 08/02/22 05:25 08/02/22 05:25 Labs: Laboratory Results - last 24 hr 08/01/22 19:18: WBC 7.4, RBC 4.72, Hgb 11.8 L, Hct 36.8 L, MCV 78.0 L, MCH 25.0 L, MCHC 32.1, RDW Std Deviation 45.6 H, RDW Coeff of Gavi 16.2 H, Plt Count 216, MPV 9.9, Immature Gran % (Auto) 0.400, Neut % (Auto) 70.4 H, Lymph % (Auto) 13.4 L, [place] % (Auto) 11.7 H, Eos % (Auto) 3.4, Baso % (Auto) 0.7, Absolute Neuts (auto) 5.2, Absolute Lymphs (auto) 0.99, Nucleated RBC % 0 08/01/22 19:18: PT 13.8, INR 1.1, APTT 28.7 08/01/22 19:18: Sodium 134 L, Potassium 4.1, Chloride 104, Carbon Dioxide 23.0, Anion Gap 7, BUN 30 H, Creatinine 1.21, Est GFR (MDRD) Af Amer 79, Est GFR (MDRD) Non-Af 65, BUN/Creatinine Ratio 24.8 H, Glucose 262 H, Calcium 9.0 08/01/22 19:18: Troponin I High Sens 9 05/03/23 19:18: Magnesium 1.7 08/02/22 05:25: WBC 5.9, RBC 4.27 L, Hgb 10.7 L, Hct 33.7 L, MCV 78.9 L, MCH 25.1 L, MCHC 31.8 L, RDW Std Deviation 46.5 H, RDW Coeff of Gavi 16.4 H, Plt Count 193, MPV 9.9, Immature Gran % (Auto) 0.500, Neut % (Auto) 59.7, Lymph % (Auto) 21.5, [place] % (Auto) 14.4 H, Eos % (Auto) 3.1, Baso % (Auto) 0.8, Absolute Neuts (auto) 3.5, Absolute Lymphs (auto) 1.27, Nucleated RBC % 0 08/02/22 05:25: Sodium 135 L, Potassium 4.0, Chloride 104, Carbon Dioxide 20.0 L , Anion Gap 11, BUN 21 H, Creatinine 0.97, Estim Creat Clear Calc 83.01, Est GFR (MDRD) Af Amer 102, Est GFR (MDRD) Non-Af 84, BUN/Creatinine Ratio 21.7 H, Glucose 280 H, Calcium 9.0, Total Bilirubin 0.50, AST 18, ALT 25, Alkaline Phosphatase 118 H, Total Protein 7.6, Albumin 3.2, Globulin 4.4 H, Album in/Globulin Ratio 0.7 L, Triglycerides 300 H, Cholesterol 133, LDL Cholesterol 40, VLDL Cholesterol 60 H, HDL Cholesterol 33 L, TSH 1.36 Radiography Diagnostic Testing: Radiology Impression Chest X-Ray 08/01/22 19:38 IMPRESSION: Mild chronic interstitial changes in the lower lobes. No acute cardiopulmonary pathology. Electronically Signed: Sameer Aparicio MD at 19:51 EDT , Head/Neck CTA 08/01/22 20:02 IMPRESSION: Moderate to severe atherosclerotic plaquing of the extracranial carotids without evidence for hemodynamically significant stenosis utilizing a NASCET . Occluded left vertebral with reconstitution distally criteria Atherosclerotic changes in the brain with severe segmental stenosis of the M1/2 junction of the right middle cerebral artery Electronically Signed: Sameer Aparicio MD at 21:16 EDT , ADDENDUM: 08/01/222132 IMPRESSION: Moderate to severe atherosclerotic plaquing of the extracranial carotids without evidence for hemodynamically significant stenosis utilizing a NASCET . Occluded left vertebral with reconstitution distally criteria Atherosclerotic changes in the brain with severe segmental stenosis of the M1/2 junction of the right middle cerebral artery N.B. : The above Results were Read Back by Sameer Aparicio MD to Nely Hill MD, and understanding confirmed on 08/01/2022 21:26:38 (ET). Electronically Signed: Sameer Aparicio MD at 21:16 EDT , Physical Exam Narrative GENERAL: cooperative HEENT: Atraumatic; normocephalic EYES; Anicteric, Normal Conjunctiva NECK; supple, normal thyroid, RESPIRATORY: Diminished to auscultation CARDIOVASCULAR: Regular S1 S2, GI: soft, normoactive bowel sounds, : No Renal angle tenderness; EXTREMITIES: No edema, no clubbing, MUSCULOSKELETAL: no muscle wasting NEURO: Awake; no lateralizing signs. SKIN: No Rash PSYCH; Flat affect Assessment & Plan Assessment/Plan (1) Vertigo: PLAN: Plan Patient is a 56-year-old male admitted with recurrent vertigo 1. Recurrent vertigo ? Patient admitted to monitored bed plan is for patient to undergo further evaluation with an MRI 2. Chronic diastolic congestive heart failure ? Currently stable 3. Paroxysmal atrial fibrillation ? Rate controlled on apixaban 4. Hypertension - Blood pressure controlled, home medications continued with dose adjustment as needed 5. Dyslipidemia -Patient is on statin therapy, continued at home dose 6. Hypothyroidism - Patient is on levothyroxine home dose continued 7. Depression with anxiety ? Did continue home meds 8. Class III obesity with BMI of 45.8 ? Weight loss advised 9. Obstructive sleep apnea ? Patient is on BiPAP at night 10. Hodgkin's lymphoma ? Currently in remission 11. DVT prophylaxis - On enoxaparin Time spent in the patient's overall evaluation,decision-making process, review of diagnostic data, adjustment of management, discussion with other providers, nursing nursing and ancillary staff involved in patient's care documentation, 40 Minutes Charges/Coding Visit Charges Inpatient E&M: 34069 Subs Hosp L2
[2022-08-02] MEDS: Acetaminophen 325 MG Tablet 650 MG PO ×2 (08:35→22:13)
[2022-08-02] MEDS: Insulin Lispro 100 UNIT/ML INSULN.PEN 25 UNIT SC ×3 (08:36→16:24)
[2022-08-02 08:45] LABS: Bedside Glucose 277 mg/dL (74-106)
[2022-08-02] MEDS: Glucerna Shake 120 ML LIQUID PO (08:47)
[2022-08-02] MEDS: Insulin Glargine-YFGN 100 UNIT/ML Pen 55 UNIT SC (08:50)
[2022-08-02] MEDS: 0.9% Saline Lock 10 ML Syringe IV (08:54)
[2022-08-02 09:08] LABS: Hemoglobin A1c 9.6 % (3.8-5.6)
[2022-08-02 11:40] LABS: Bedside Glucose 210 mg/dL (74-106)
--- NOTE | 2022-08-02 13:07 | CHAPLAIN ---
Type of Pastoral Visit _x__ Initial Visit ___ Follow-up Visit ___ On-call Visit ___ General Patient Visit ___ Spiritual Assessment ___ Family Conference ___ Bereavement ___ Rapid Response ___ Code Blue ___ Other (describe below) Pastoral Care Referral From _x__ Patient ___ Family ___ Nurse ___ Physician ___ Bobbin Disker ___ Lease Purchase Driver ___ Other (describe below) Sacrament/Intervention _x__ Active listening ___ Anointing ___ Temple ___ Bereavement ___ Communion ___ Mary exploration ___ ___ Life review _x__ Prayer ___ Reconciliation ___ Sacrament of Sick ___ Supportive presence ___ Wedding ___ Other (describe below) Pastoral Comments several family members are in the room with patient; pt welcomes prayer; pt states he is waiting on tests
[2022-08-02] MEDS: amLODIPine 10 MG Tablet PO (16:24)
[2022-08-02 16:55] LABS: Bedside Glucose 225 mg/dL (74-106)
[2022-08-02] MEDS: Atorvastatin Calcium 80 MG Tablet PO (22:14)
[2022-08-02] MEDS: busPIRone 5 MG Tablet 10 MG PO (22:42)
[2022-08-02 23:11] LABS: Bedside Glucose 223 mg/dL (74-106)
[2022-08-03 03:46] VITALS: BP 155/86; PULSE 105; RESP 18; TEMP 36.4; O2SAT 95
[2022-08-03 03:50] VITALS: BMI 45.9
[2022-08-03] MEDS: Levothyroxine 125 MCG Tablet PO (05:21)
[2022-08-03 05:22] VITALS: BMI 45.4
[2022-08-03 07:31] VITALS: O2SAT 96
--- NOTE | 2022-08-03 07:37 | PCM.PN.HOSP ---
Reason for Visit Reason for Visit: Diagnoses Dizziness and giddiness (08/01/22) Subjective Subjective MRI obtained the day prior did not demonstrate acute CVA. Patient vertigo most likely secondary to BPPV. Was seen and evaluated by physical therapy patient will continue with outpatient vestibular therapy Objective Data Objective Data Vital Signs: Vital Signs Temp Pulse Resp BP Pulse Ox O2 Del Method 97.5 F L 105 H 18 155/86 H 95 Room Air 08/03/22 03:46 08/03/22 03:46 08/03/22 03:46 08/03/22 03:46 08/03/22 03:46 08/03/22 03:48 Oxygen Delivery Method Room Air Weight: 139.6 kg Body Mass Index (BMI) 45.4 Intake & Output: Intake and Output for Last 24 Hours 08/01/22 08/02/22 08/03/22 23:59 23:59 23:59 Intake Total 1274.17 / 1274.17 Output Total 1725 / 1725 Balance -450.83 / -450.83 Lab / Micro Data Result Diagrams: 08/02/22 05:25 08/02/22 05:25 Labs: Laboratory Results - last 24 hr 08/02/22 05:25: Hemoglobin A1c 9.6 H 08/02/22 08:20: POC Glucose 277 H 08/02/22 11:12: POC Glucose 210 H 08/02/22 16:23: POC Glucose 225 H 08/02/22 22:14: POC Glucose 223 H Radiography Diagnostic Testing: Radiology Impression Brain MRI 08/02/22 00:31 IMPRESSION: 1. No intracranial mass, hemorrhage, or acute territorial infarct. 2. No radiographically significant sinus disease. Electronically Signed: Clint Otto MD at 20:10 EDT , Echocardiogram 08/02/22 00:31 Interpretation Summary Technically difficult study. Mild concentric left ventricular hypertrophy. The left ventricular ejection fraction is 60 %. The left atrium is moderately enlarged. Ordering Physician: Cookie Bell Referring Physician: Radha Khan Performed By: Bijal Faust RDCS, RVT Physical Exam Narrative GENERAL: cooperative HEENT: Atraumatic; normocephalic EYES; Anicteric, Normal Conjunctiva NECK; supple, normal thyroid, RESPIRATORY: Diminished to auscultation CARDIOVASCULAR: Regular S1 S2, GI: soft, normoactive bowel sounds, : No Renal angle tenderness; EXTREMITIES: No edema, no clubbing, MUSCULOSKELETAL: no muscle wasting NEURO: Awake; no lateralizing signs. SKIN: No Rash PSYCH; Flat affect Assessment & Plan Assessment/Plan (1) Vertigo: PLAN: Plan Patient is a 56-year-old male admitted with recurrent vertigo 1. Recurrent vertigo ? Patient admitted to monitored bed plan is for patient to undergo further evaluation with an MRI -08/03/2022 MRI obtained the day prior did not demonstrate acute CVA. Patient vertigo most likely secondary to BPPV. Was seen and evaluated by physical therapy patient will continue with outpatient vestibular therapy 2. Chronic diastolic congestive heart failure ? Currently stable 3. Paroxysmal atrial fibrillation ? Rate controlled on apixaban 4. Hypertension - Blood pressure controlled, home medications continued with dose adjustment as needed 5. Dyslipidemia -Patient is on statin therapy, continued at home dose 6. Hypothyroidism - Patient is on levothyroxine home dose continued 7. Depression with anxiety ? Did continue home meds 8. Class III obesity with BMI of 45.8 ? Weight loss advised 9. Obstructive sleep apnea ? Patient is on BiPAP at night 10. Hodgkin's lymphoma ? Currently in remission 11. DVT prophylaxis - On enoxaparin Time spent in the patient's overall evaluation,decision-making process, review of diagnostic data, adjustment of management, discussion with other providers, nursing nursing and ancillary staff involved in patient's care documentation, 40 Minutes Charges/Coding Visit Charges Inpatient E&M: 64756 Subs Hosp L2
[2022-08-03 08:07] VITALS: BP 173/92; PULSE 112; RESP 16; TEMP 36.4; O2SAT 100
[2022-08-03] MEDS: Insulin Glargine-YFGN 100 UNIT/ML Pen 55 UNIT SC (08:09)
[2022-08-03] MEDS: Insulin Lispro 100 UNIT/ML INSULN.PEN SC ×2 (08:09→11:25)
[2022-08-03] MEDS: DULoxetine Hcl 60 MG Capsule PO (08:11)
[2022-08-03] MEDS: Aspirin 81 MG TAB.CHEW PO (08:11)
[2022-08-03] MEDS: Tamsulosin HCl 0.4 MG Capsule PO (08:11)
[2022-08-03] MEDS: Pantoprazole Sodium 40 MG Tablet PO (08:11)
[2022-08-03] MEDS: amLODIPine 10 MG Tablet PO (08:11)
[2022-08-03] MEDS: Insulin Lispro 100 UNIT/ML INSULN.PEN 25 UNIT SC ×2 (08:12→11:25)
[2022-08-03] MEDS: APIXABAN 5 MG TABLET PO (08:12)
[2022-08-03 09:00] LABS: Bedside Glucose 297 mg/dL (74-106)
--- NOTE | 2022-08-03 10:11 | PCM.DC.SUM ---
Providers Date of Admission: 08/01/22 Date of Discharge: 08/03/22 Primary Care Physician: Dr. Radha Khan MD Reason For Visit: VERTIGO ? POSTERIOR CVA Diagnosis Discharge Diagnosis (1) Vertigo: Status: Acute Code(s): R42 - Dizziness and giddiness Plan Patient is a 56-year-old male admitted with recurrent vertigo 1. Recurrent vertigo ? Patient admitted to monitored bed plan is for patient to undergo further evaluation with an MRI -08/03/2022 MRI obtained the day prior did not demonstrate acute CVA. Patient vertigo most likely secondary to BPPV. Was seen and evaluated by physical therapy patient will continue with outpatient vestibular therapy 2. Chronic diastolic congestive heart failure ? Currently stable 3. Paroxysmal atrial fibrillation ? Rate controlled on apixaban 4. Hypertension - Blood pressure controlled, home medications continued with dose adjustment as needed 5. Dyslipidemia -Patient is on statin therapy, continued at home dose 6. Hypothyroidism - Patient is on levothyroxine home dose continued 7. Depression with anxiety ? Did continue home meds 8. Class III obesity with BMI of 45.8 ? Weight loss advised 9. Obstructive sleep apnea ? Patient is on BiPAP at night 10. Hodgkin's lymphoma ? Currently in remission 11. DVT prophylaxis - On enoxaparin Time spent in the patient's overall evaluation,decision-making process, review of diagnostic data, adjustment of management, discussion with other providers, nursing nursing and ancillary staff involved in patient's care documentation, 40 Minutes Medications at Discharge Home Medications levothyroxine 125 mcg tablet 125 mcg PO DAILY thyroid 05/03/15 pantoprazole 40 mg tablet,delayed release (Protonix) 40 mg PO DAILY acid reflux 05/03/15 tamsulosin 0.4 mg capsule 0.4 mg PO DAILY prostate 09/08/15 buspirone 10 mg tablet 10 mg PO TID PRN PRN Anxiety 04/17/18 duloxetine 60 mg capsule,delayed release (Cymbalta) 60 mg PO DAILY depression 04/17/18 aspirin 81 mg chewable tablet 81 mg PO DAILY@0800 03/30/20 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 meter,continuous (Dexcom G6 Repair Service Clerk) #1 ea 07/26/20 pen needle, diabetic 31 gauge x 08/14 #1,200 ea 12/22/20 pen needle, diabetic 32 gauge x (BD Ultra-Fine Kiki Pen Needle) #150 ea 06/01/21 atorvastatin 80 mg tablet (Lipitor) 80 mg PO QHS cholesterol 09/04/21 metoprolol succinate 100 mg tablet,extended release 24 hr 100 mg PO DAILY #90 tabs 12/08/21 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 sensor (Dexcom G6 Sensor device) #3 ea 12/29/21 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 transmitter (Dexcom G6 Transmitter device) #1 ea 12/29/21 amlodipine 10 mg tablet 10 mg PO DAILY #30 tabs 01/25/22 glimepiride 4 mg tablet (Amaryl) 4 mg PO BID #180 tabs 03/12/22 spironolactone 50 mg tablet 50 mg PO DAILY #90 tabs 05/21/22 apixaban 5 mg tablet (Eliquis) 5 mg PO BID #180 tabs 05/22/22 furosemide 40 mg tablet (Lasix) 40 mg PO BID diuretic 08/01/22 insulin glargine U-300 conc 300 unit/mL (1.5 mL) subcutaneous pen (Toujeo SoloStar U-300 Insulin) 55 unit subcut DAILY diabetes 08/01/22 insulin lispro 100 unit/mL subcutaneous pen (Humalog KwikPen (U-100) Insulin) 25 unit subcut TIDCM diabetes 08/01/22 lisinopril 40 mg tablet 40 mg PO BID blood pressure 08/01/22 Hospital Course Summary of Care Provided Minutes Spent on Discharge: 40 Physical Exam Narrative GENERAL: cooperative HEENT: Atraumatic; normocephalic EYES; Anicteric, Normal Conjunctiva NECK; supple, normal thyroid, RESPIRATORY: Diminished to auscultation CARDIOVASCULAR: Regular S1 S2, GI: soft, normoactive bowel sounds, : No Renal angle tenderness; EXTREMITIES: No edema, no clubbing, MUSCULOSKELETAL: no muscle wasting NEURO: Awake; no lateralizing signs. SKIN: No Rash PSYCH; Flat affect Weight / BMI Weight Weight: 139.6 kg Body Mass Index (BMI) 45.4 ABG / Lab / Microbiology Data Result Diagrams: 08/02/22 05:25 08/02/22 05:25 Laboratory: Laboratory Results - last 24 hr 08/02/22 11:12: POC Glucose 210 H 08/02/22 16:23: POC Glucose 225 H 08/02/22 22:14: POC Glucose 223 H 08/03/22 08:06: POC Glucose 297 H Radiography Diagnostic Testing: Radiology Impression Brain MRI 08/02/22 00:31 IMPRESSION: 1. No intracranial mass, hemorrhage, or acute territorial infarct. 2. No radiographically significant sinus disease. Electronically Signed: Clint Otto MD at 20:10 EDT Reading Location ID and State: [facility] / [place] Tel , Service support , Echocardiogram 08/02/22 00:31 Interpretation Summary Technically difficult study. Mild concentric left ventricular hypertrophy. The left ventricular ejection fraction is 60 %. The left atrium is moderately enlarged. Ordering Physician: Cookie Bell Referring Physician: Radha Khan Performed By: Bijal Faust, DIANA, RVT D/C Instructions Discharge Activity: Return to Normal Activity Call your doctor if you observe: Fever of 101 or Higher, Shortness of breath, Fainting spells and Chest pain Meaningful Use Info Meaningful Use Diagnoses (Choose all that apply): None applicable Discharge Plan Admission Admit Date/Time: 08/01/22 23:11 Attending Provider: Eduin Ospina Primary Care Provider: Radha Khan Consulting Providers: Cookie Bell Discharge Orders/Prescriptions Prescriptions: Continued (DME) Dexcom G6 Repair Service Clerk Misc See Rx Instructions .ROUTE .MEDSUPPLY Qty: 1 0RF Rx Instructions: As directed (DME) pen needle, diabetic 31 gauge x 5/16 needle See Rx Instructions .ROUTE .MEDSUPPLY Qty: 1200 Label Comments: use 1 PEN NEEDLE to inject MEDICATION subcutaneously as directed Rx Instructions: As directed (DME) pen needle, diabetic [BD Ultra-Fine Kiki Pen Needle] 32 gauge x 5/32 needle See Rx Instructions .ROUTE .MEDSUPPLY Qty: 150 6RF Rx Instructions: As directed spironolactone 50 mg tablet 50 mg PO DAILY Qty: 90 3RF pantoprazole [Protonix] 40 MG tablet 40 mg PO DAILY levothyroxine 125 MCG tablet 125 mcg PO DAILY tamsulosin 0.4 MG capsule 0.4 mg PO DAILY buspirone 10 MG tablet 10 mg PO TID PRN PRN (Reason: Anxiety) Label Comments: TAKE ONE TABLET BY MOUTH THREE TIMES DAILY Rx Instructions: pt states he usually takes 1 daily duloxetine [Cymbalta] 60 MG capsule,delayed release(DR/EC) 60 mg PO DAILY Label Comments: TAKE ONE CAPSULE BY MOUTH DAILY aspirin 81 MG tablet,chewable 81 mg PO DAILY@0800 0RF atorvastatin [Lipitor] 80 MG tablet 80 mg PO QHS Rx Instructions: cholesterol furosemide [Lasix] 40 mg tablet 40 mg PO BID lisinopril 40 mg tablet 40 mg PO BID Rx Instructions: blood pressure insulin lispro [Humalog KwikPen Insulin] 100 unit/mL insulin pen 25 unit subcut TIDCM Toujeo SoloStar U-300 Insulin 300 unit/mL (1.5 mL) insulin pen 55 unit SUBCUT DAILY metoprolol succinate 100 mg tablet extended release 24 hr 100 mg PO DAILY Qty: 90 3RF (DME) Dexcom G6 Sensor Device See Rx Instructions .ROUTE .MEDSUPPLY Qty: 3 6RF Rx Instructions: As directed (DME) Dexcom G6 Transmitter Device See Rx Instructions .ROUTE .MEDSUPPLY Qty: 1 3RF Rx Instructions: As directed amlodipine 10 mg tablet 10 mg PO DAILY Qty: 30 11RF glimepiride [Amaryl] 4 mg tablet 4 mg PO BID Qty: 180 1RF Eliquis 5 mg tablet 5 mg PO BID Qty: 180 3RF Other Ambulatory Orders: Occupational Therapy Eval (Routine) Location: None Selected Ordered By: Dr. Eduin Ospina Physical Therapy Evaluation (Routine) Location: None Selected Ordered By: Dr. Eduin Ospina Referrals / Follow Up: Radha Khan MD [Primary Care Provider] - Within 1 Week Disposition Disposition (needs filled in before D/C Order can be placed): Home, Self Care Charges/Coding Visit Charges Inpatient E&M: 79667 Disch Hosp >30min
[2022-08-03] MEDS: Acetaminophen 325 MG Tablet 650 MG PO (11:22)
[2022-08-03] MEDS: Lisinopril 40 MG Tablet PO (11:30)
[2022-08-03 11:50] LABS: Bedside Glucose 343 mg/dL (74-106)
[2022-08-03 12:17] VITALS: BP 139/79; PULSE 118
[2022-08-03] MEDS: Metoprolol(XL)Succ 100 MG Tablet PO (12:17)
--- NOTE | 2022-08-03 12:30 | CASEMGMT ---
RN CM in to discuss discharge needs with patient. Patient and awaiting therapy for vestibular exercises. RN CM discuss possible outpatient vestibular therapy and patient is interested. Patient denied further questions or concerns at this time. Script received and provided in patient discharge packet with [facility] information.
[2022-08-03 15:20] VITALS: BP 144/78; PULSE 107; RESP 16; TEMP 36.6; O2SAT 97
[2022-08-03 15:30] VITALS: BMI 45.4
== END 2022-08-03 10:04 | disposition home or self-care (01) ==
LOC: ED 23:40 → PCU 23:52
PROVIDERS: Admitting Provider Family Medicine; Emergency Provider Emergency Medicine; PCP Family Medicine; Visit Provider Internal Medicine
DX: R42 Dizziness and giddiness (principal); C81.90 Hodgkin lymphoma, unspecified, unspecified site; I11.0 Hypertensive heart disease with heart failure; I50.32 Chronic diastolic (congestive) heart failure; E11.42 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 with diabetic polyneuropathy; I48.0 Paroxysmal atrial fibrillation; E66.01 Morbid (severe) obesity due to excess calories; Z68.42 Body mass index [BMI] 45.0-49.9, adult; Z79.4 Long term (current) use of insulin; Z79.01 Long term (current) use of anticoagulants; E78.00 Pure hypercholesterolemia, unspecified; R11.0 Nausea; G47.33 Obstructive sleep apnea (adult) (pediatric); M54.2 Cervicalgia; Z79.899 Other long term (current) drug therapy; Z79.890 Hormone replacement therapy; Z79.84 Long term (current) use of oral hypoglycemic drugs; Z79.82 Long term (current) use of aspirin; K21.9 Gastro-esophageal reflux disease without esophagitis; F41.9 Anxiety disorder, unspecified; F32.A Depression, unspecified; H53.2 Diplopia
CPT/HCPCS: 36415; 70496; 70498; 70551; 71045; 80048; 80053; 80061; 82962; 83036; 83735; 84443; 84484; 85025; 85610; 85730; 92523; 92610; 93005; 93306; 94668; 96374; 97162; 97166; 97802; 99221; 99285; J7030; Q9957; Q9967; A4216; C8929; G0378

== ENCOUNTER → 2022-10-01 | Outpatient (CLI) | payer OTHER, SELFPAY ==
--- NOTE | 2022-10-01 08:46 | CDU_ITS ---
Reason For Study: CAROTID STENOSIS Rt. Velocities/BP Lt. Velocities/BP Prox CCA 165.5/26.7 cm/sec. Prox CCA 201.1/35.2 cm/sec. Mid CCA 123.5/23.0 cm/sec. Mid CCA 247.6/47.2 cm/sec. Dist CCA 128.9/23.0 cm/sec. Dist CCA 202.4/34.3 cm/sec. Prox ICA 105.8/21.7 cm/sec. Prox ICA 122.7/41.5 cm/sec. Mid ICA 93.0/23.6 cm/sec. Mid ICA 188.9/43.8 cm/sec. Dist ICA 116.7/36.3 cm/sec. Dist ICA 59.5/14.1 cm/sec. Rt. ICA/CCA = 116.7/123.5=0.9. Lt. ICA/CCA = 188.9/247.6=0.8. Prox ECA 410.8/30.6 cm/sec. Prox ECA 279.9/31.0 cm/sec. Rt. Vert. 52.8/14.4 cm/sec. Lt. Vert. 69.9/2.3 cm/sec. Right Extracranial There is heterogeneous, irregular atherosclerotic plaque noted in the right common carotid artery. There is heterogeneous, irregular atherosclerotic plaque noted in the right internal carotid artery. There is homogeneous, smooth atherosclerotic plaque noted in the right external carotid artery. Antegrade flow is noted in the right vertebral artery. Left Extracranial There is heterogeneous, irregular atherosclerotic plaque noted in the left common carotid artery. There is heterogeneous, irregular atherosclerotic plaque noted in the left internal carotid artery. There is heterogeneous, irregular atherosclerotic plaque noted in the left external carotid artery. Antegrade flow is noted in the left vertebral artery. Procedure Carotid Duplex [id number]. This is a Carotid Duplex examination using B-mode, color flow and specral Doppler. The study was technically difficult. Exam performed in department. VL/Carotid Duplex Ultrasound Interpretation Summary Irregular plaque at the proximal right internal carotid artery with less than 5 0% stenosis Greater than 50% stenosis right external carotid artery Irregular plaque at the proximal left common carotid artery Velocity elevation is noted throughout the left common carotid artery which collin ears similar to the previous examination of September 28, 2021 Irregular calcific plaque with shadowing at the left mid internal carotid arter y with 50 to 69% stenosis. Greater than 50% stenosis left external carotid artery Patent and antegrade vertebral arteries bilaterally No change from the previous examination of September 28, 2021 other than the left ve rtebral previously could not be identified Ordering Physician: Francois Valiente Referring Physician: Radha Khan Performed By: Bijal Faust, DIANA, RVT
== END | disposition home or self-care (01) ==
LOC: CVS 08:45
PROVIDERS: PCP Family Medicine; Referring Provider Surgery; Visit Provider Surgery
DX: R09.89 Other specified symptoms and signs involving the circulatory and respiratory systems (principal); I65.29 Occlusion and stenosis of unspecified carotid artery
CPT/HCPCS: 93880

== ENCOUNTER → 2022-10-12 | Outpatient (CLI) | payer OTHER, SELFPAY ==
--- NOTE | 2022-10-12 16:40 | MRI_ITS ---
INDICATION: RADICULOPATHY, pain in base of skull into upper back EXAMINATION: MRI - MR Spine Cervical W/O Contrast TECHNIQUE: Multiplanar and multisequence MR images of the cervical spine were performed. IV Contrast Dosage and Agent: None. COMPARISON: None. FINDINGS: VERTEBRAE: No acute fracture or pathologic marrow replacement. VERTEBRAL ALIGNMENT: Normal, including the craniocervical junction and cervicothoracic junction. Minimal spondylolisthesis at C4-5. There is preservation of the normal cervical lordosis. CERVICAL SPINAL CORD: Unremarkable in signal and morphology. C2/C3: Normal disc height and morphology. Normal spinal canal and neuroforamina. C3/C4: Normal disc height and morphology. Normal spinal canal and neuroforamina. C4/C5: Broad-based disc-osteophyte complex without significant central stenosis. Moderate bilateral foraminal stenosis. C5/C6: Normal disc height and morphology. Normal spinal canal and neuroforamina. C6/C7: Normal disc height and morphology. Normal spinal canal and neuroforamina. C7/T1: Normal disc height and morphology. Normal spinal canal and neuroforamina. NECK SOFT TISSUES: No prevertebral soft tissue swelling. There is no cervical adenopathy. MRI/Spine Cervical (Routine) IMPRESSION: Mild cervical spondylosis at C4-5 with moderate bilateral foraminal stenosis. Electronically Signed: Lul Burt MD at 0:43 EDT ,
== END | disposition home or self-care (01) ==
LOC: MRI 16:11
PROVIDERS: PCP Family Medicine; Referring Provider Anesthesiology Pain Medicine; Visit Provider Anesthesiology Pain Medicine
DX: M54.12 Radiculopathy, cervical region (principal)
CPT/HCPCS: 72141

== ENCOUNTER → 2022-10-31 | Outpatient (CLI) | payer OTHER, SELFPAY ==
[2022-10-31 15:15] LABS: Absolute Lymphocyte Count 1.83 X10^3/uL (0.83-4.51); Absolute Neutrophil Count 4.7 X10^3/uL (2.0-7.7); Basophil# 0.05 X10^3/uL; Basophil% 0.6 % (0-1); Eosinophils% 3.8 % (0-5); Hematocrit 31.9 % (40-54); Hemoglobin 10.4 g/dL (13.0-16.5); Lymphocyte # 1.83 X10^3/ul (0.83-4.51); Lymphocyte % 23.2 % (19-41); Mean Corp Hgb Conc 32.6 g/dL (32-36); Mean Corpuscular Hgb 26.4 pg (27.0-32.0); Mean Platelet Vol. 10.2 fl (6.2-12.0); Monocyte% 12.7 % (0-10); NRBC Flagged by Analyzer 0 % (0-5); Neutrophil # 4.67 X10^3/uL (2.7-7.7); Neutrophil % 59.2 % (47-70); Platelet Count 253 K/mm3 (150-450); RBC Distribution Width CV 16.7 % (11.6-14.6); RBC Distribution Width SD 49.3 fl (35.1-43.9); Red Blood Count 3.94 M/mm3 (4.6-6.2); White Blood Count 7.9 K/mm3 (4.4-11.0)
[2022-10-31 15:43] LABS: ALB/GLOB Ratio 0.5 RATIO (0.9-2.4); AST(SGOT) 22 U/L (15-37); Alanine Aminotransfer ALT/SGPT 24 U/L (16-61); Albumin, Serum 3.1 g/dL (3.2-5.0); Alkaline Phosphatase 103 U/L (45-117); Anion Gap 9 (5-15); BUN 41 mg/dL (7-18); Calcium,Total 9.1 mg/dL (8.5-10.1); Chloride 107 mmol/L (98-107); Creatinine, Serum 1.52 mg/dL (0.70-1.30); EST Glomerular Filtration Rate 50 mL/min (>60); Est Glom Filt Rate - Afr Amer 61 mL/min (>60); Ferritin 158 ng/mL (26-388); Globulin 5.8 g/dL (2.2-4.2); Glucose 119 mg/dL (74-106); Iron 35 ug/dL (65-175); Iron Binding Capacity,Total 274 ug/dL (250-450); PERCENT IRON SATURATION 12.8 % (15.0-55.0); Potassium 4.9 mmol/L (3.5-5.1); Protein, Total 8.9 g/dL (6.4-8.2); Sodium Level 135 mmol/L (136-145); Thyroid Stim Hormone (TSH) 0.23 uIU/mL (0.358-3.74)
[2022-10-31 15:45] LABS: Vitamin D,25 Hydroxy 12.1 ng/mL
== END | disposition home or self-care (01) ==
LOC: MFPLAB 12:24
PROVIDERS: PCP Family Medicine; Visit Provider Family Medicine
DX: D64.9 Anemia, unspecified (principal)
CPT/HCPCS: 36415; 80053; 82306; 82728; 83540; 83550; 84443; 85025

== ENCOUNTER → 2022-11-07 | Outpatient (CLI) | payer OTHER, SELFPAY ==
--- NOTE | 2022-11-07 15:11 | RAD_ITS ---
INDICATION: SOB EXAMINATION: Frontal and lateral views of the chest. COMPARISON: Chest x-ray August 01, 2022. FINDINGS: Frontal and lateral views of the chest were obtained. The cardiac silhouette is not enlarged. Chronic interstitial changes bilaterally are similar to the prior exam. No confluent airspace disease. No pleural effusion or pneumothorax. RAD/Chest PA and Lateral IMPRESSION: Chronic interstitial changes. No acute pulmonary disease. Electronically Signed: Rufino Kidd MD at 22:14 EDT ,
[2022-11-07 18:18] LABS: BNP,B-Type NATRIURETIC PEPTIDE 9.7 pg/mL (0-100)
[2022-11-07 18:22] LABS: T3 Total - Triiodothyronine 1.16 ng/mL (0.6-1.81)
[2022-11-07 18:36] LABS: T4 Total, Thyroxin 10.9 ug/dL (4.5-12.1); Thyroid Stim Hormone (TSH) 0.27 uIU/mL (0.358-3.74)
== END | disposition home or self-care (01) ==
LOC: MTLAB 15:09
PROVIDERS: PCP Family Medicine; Referring Provider Family Medicine; Visit Provider Family Medicine
DX: R79.89 Other specified abnormal findings of blood chemistry (principal); I50.32 Chronic diastolic (congestive) heart failure; R06.02 Shortness of breath
CPT/HCPCS: 36415; 71046; 83880; 84436; 84443; 84480

== ENCOUNTER → 2022-11-09 | Outpatient (CLI) | payer OTHER, SELFPAY ==
--- NOTE | 2022-11-09 14:42 | US_ITS ---
INDICATION: Low TSH EXAMINATION: Ultrasound US Thyroid (eg thyroid, parathyroid, parotid) TECHNIQUE: Burns scale and color doppler imaging was performed of the thyroid gland. TI-RADS criteria was utilized. COMPARISON: None. FINDINGS: RIGHT THYROID LOBE: 1.8 x 4.7 x 2.4 cm with a volume of 10.4 mL heterogeneous echotexture. Normal vascularity. 1.5 cm nodule which is solid, hypoechoic, wider than tall with smooth margins and no echogenic foci. 7 mm nodule which is solid, hypoechoic, wider than tall with smooth margins and no echogenic foci. LEFT THYROID LOBE: 1.4 x 3.2 x 1.4 cm with a volume of 3.4 cm. Heterogeneous echotexture. 2.0 cm nodule which is mixed solid and cystic, hypoechoic and anechoic, wider than tall with smooth margins and no echogenic foci. Normal vascularity. ISTHMUS: 2 mm heterogeneous echotexture. Normal vascularity. No thyroid nodules. US/Thyroid IMPRESSION: 1. 1.5 cm right lobe TI-RADS 4 nodule. Recommend fine-needle aspiration. 2. 7 mm right lobe TI-RADS 4 nodule. No follow-up is recommended. 3. 2.0 cm left lobe TI-RADS 3 nodule. Recommend follow-up ultrasound in one year. Electronically Signed: Sameer Barraza DO at 7:01 EDT ,
== END | disposition home or self-care (01) ==
LOC: US 14:41
PROVIDERS: PCP Family Medicine; Referring Provider Family Medicine; Visit Provider Family Medicine
DX: R79.89 Other specified abnormal findings of blood chemistry (principal)
CPT/HCPCS: 76536

== ENCOUNTER → 2022-12-31 | Outpatient (CLI) | payer OTHER, SELFPAY ==
[2022-12-31 17:34] LABS: Absolute Lymphocyte Count 1.76 X10^3/uL (0.83-4.51); Absolute Neutrophil Count 7.8 X10^3/uL (2.0-7.7); Basophil# 0.07 X10^3/uL; Basophil% 0.6 % (0-1); Eosinophil# 0.25 X10^3/uL; Eosinophils% 2.3 % (0-5); Hematocrit 34.6 % (40-54); Hemoglobin 10.8 g/dL (13.0-16.5); Lymphocyte # 1.76 X10^3/ul (0.83-4.51); Lymphocyte % 16.1 % (19-41); Mean Corp Hgb Conc 31.2 g/dL (32-36); Mean Corpuscular Hgb 25.7 pg (27.0-32.0); Mean Corpuscular Volume 82.4 fL (80-94); Mean Platelet Vol. 10.1 fl (6.2-12.0); Monocyte# 0.93 X10^3/uL; Monocyte% 8.5 % (0-10); NRBC Flagged by Analyzer 0 % (0-5); Neutrophil # 7.84 X10^3/uL (2.7-7.7); Platelet Count 265 K/mm3 (150-450); RBC Distribution Width CV 16.8 % (11.6-14.6); RBC Distribution Width SD 50.4 fl (35.1-43.9); White Blood Count 10.9 K/mm3 (4.4-11.0)
[2022-12-31 17:35] LABS: Color, Urine Yellow (Yellow); Glucose, Dipstick Normal (Normal); Ketone-Dipstick Negative (Negative); Leukocyte Esterase-Dipstick Negative /ul (Negative); Nitrite-Dipstick Negative (Negative); Occult Blood-Urine Negative /ul (Negative); Protein-Dipstick 15 mg/dl (Negative); Specific Gravity, Urine 1.015 (1.002-1.030); Urine Bilirubin Dipstick Negative (Negative); Urine Clarity Sl. Cloudy (Clear); Urine Urobilinogen Normal (Normal)
[2022-12-31 18:01] LABS: Protein, Urine (Random) 15.7 mg/dL (<11.9)
[2022-12-31 18:10] LABS: Vitamin D,25 Hydroxy 33.7 ng/mL
[2022-12-31 18:24] LABS: Albumin, Serum 3.3 g/dL (3.2-5.0); BUN 27 mg/dL (7-18); BUN/Creat Ratio 21.4 RATIO (10-20); Calcium,Total 8.7 mg/dL (8.5-10.1); Chloride 107 mmol/L (98-107); Creatinine, Serum 1.26 mg/dL (0.70-1.30); EST Glomerular Filtration Rate 62 mL/min (>60); Est Glom Filt Rate - Afr Amer 75 mL/min (>60); Ferritin 37 ng/mL (26-388); Glucose 117 mg/dL (74-106); Iron 37 ug/dL (65-175); Iron Binding Capacity,Total 355 ug/dL (250-450); PERCENT IRON SATURATION 10.4 % (15.0-55.0); Phosphorus 3.7 mg/dL (2.5-4.9); Potassium 3.8 mmol/L (3.5-5.1); Sodium Level 138 mmol/L (136-145); Uric Acid 8.2 mg/dL (3.5-7.2)
[2023-01-02 15:08] LABS: Complement C3 159 mg/dL (82-167); PROEL- A/G Ratio 0.8 (0.7-1.7); PROEL- Albumin 3.4 g/dL (2.9-4.4); PROEL- Alpha-1 Globulin 0.2 g/dL (0.0-0.4); PROEL- Alpha-2 Globulin 0.9 g/dL (0.4-1.0); PROEL- Beta Globulin 1.1 g/dL (0.7-1.3); PROEL- Gamma Globulin 1.9 g/dL (0.4-1.8); PROEL- Globulin, Total 4.1 g/dL (2.2-3.9); PROEL- TOTAL PROTEIN 7.5 g/dL (6.0-8.5)
== END | disposition home or self-care (01) ==
PROVIDERS: PCP Family Medicine; Referring Provider Internal Medicine Nephrology; Visit Provider Internal Medicine Nephrology
DX: I12.9 Hypertensive chronic kidney disease with stage 1 through stage 4 chronic kidney disease, or unspecified chronic kidney disease (principal); E11.22 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 with diabetic chronic kidney disease; N18.4 Chronic kidney disease, stage 4 (severe); E03.9 Hypothyroidism, unspecified; D63.1 Anemia in chronic kidney disease; Q61.9 Cystic kidney disease, unspecified
CPT/HCPCS: 36415; 80069; 81002; 82306; 82570; 82728; 83540; 83550; 84156; 84165; 84550; 85025; 86160

== ENCOUNTER → 2023-01-01 | Outpatient (CLI) | payer OTHER, SELFPAY ==
--- NOTE | 2023-01-01 | ASPSI_PTH ---
PATIENT: KRUNAL LEOS [facility] U#:[id number] AGE/SX: 57/M ROOM: RE01/01/[address]: Dr. Olman Rushing MD : 1965 BED: DIS: 01/01/2023 SPEC #: [id number] RECD: 01/02/23 10:28 STATUS: ARDEN SHANNON #: [id number] CATALINA: 01/01/23 00:[address]: Olman Rushing DEPT: CYTOLOGY RECD BY: Radha Adler ENTERED: 01/02/23 10:29 SP TYPE: ASP STACEY QUIROZ DR: Dr. Radha Khan MD Tissues: A - Thyroid gland, NOS B - Thyroid gland, NOS C - Thyroid gland, NOS D - Thyroid gland, NOS Procedures: Surgery Specimen Level IV Cytospin Fluid Cytology Other HEADER OPERATION: Fine needle aspiration right and left thyroid nodule PRE-OP DIAGNOSIS: Right and left thyroid nodules TISSUE SUBMITTED: A - FNA right thyroid nodule fluid, B - FNA right thyroid nodule x 6 slides, C - FNA left thyroid nodule fluid, B - FNA left thyroid nodule x 4 slides DIAGNOSIS CYTOLOGY A. Fine needle aspiration, right thyroid nodule (cytospin and cell block): Consistent with benign follicular/colloid nodule ([place] Category II). See comment. B. Fine needle aspiration, right thyroid nodule (smears): Atypia of undetermined significance in background of colloid material ([place] Category III). C. Fine needle aspiration, left thyroid nodule (cytospin and cell block): Consistent with benign follicular nodule with cystic change ([place] Category II). See comment. D. Fine needle aspiration, left thyroid nodule (smears): Consistent with benign follicular nodule with cystic change ([place] Category II). Chronic inflammation. See comment. AM:aneesh 01/03/2023 COMMENT A-D. The [place] System for thyroid diagnostic categorization was used in the evaluation of this case. The specimen is adequate for evaluation. A & B. Multi-gene next-generation sequencing panel (Afirma) is recommended for this lesion. This recommendation was communicated to the physician's office. CYTOLOGY STUDY Slides are reviewed. CYTOLOGY GROSS A - Received is 15 ml of red fluid labeled with the patient's name and and designated per the requisition as right thyroid nodule. Submitted for cytology preparation including cell block. B - Received are six smears labeled with the patient's name and designated per the requisition as right thyroid nodule. Submitted for staining. C - Received is 15 ml of red fluid labeled with the patient's name and and designated per the requisition as left thyroid nodule. Submitted for cytology preparation including cell block. D - Received are four smears labeled with the patient's name and designated per the requisition as left thyroid nodule. Submitted for staining. / aneesh 01/02/2023 TC:? CPT: 66774 x4, 75227 x2
== END | disposition home or self-care (01) ==
LOC: LABSPEC 01-02 07:40
PROVIDERS: PCP Family Medicine; Referring Provider Surgery; Visit Provider Surgery
DX: E04.1 Nontoxic single thyroid nodule (principal)
CPT/HCPCS: 88108; 88161; 88305

== ENCOUNTER → 2023-01-07 | Outpatient (CLI) | payer OTHER, SELFPAY ==
--- NOTE | 2023-01-07 11:59 | US_ITS ---
INDICATION: CKD EXAMINATION: Ultrasound US Kidney(s) complete (eg, kidneys and bladder) TECHNIQUE: Ochoa scale and color doppler images were obtained of the kidneys. COMPARISON: CT abdomen/pelvis dated 06/25/2015 FINDINGS: RIGHT KIDNEY: 13.9 x 6.1 x 7.2 cm. There is no hydronephrosis. There is a 6 mm echogenic focus in the right kidney compatible with a nonobstructive calculus. There is a simple appearing cyst measuring 3.9 cm emanating from the lower pole right kidney. Follow-up imaging recommended. LEFT KIDNEY: 11.8 x 6.3 x 6.9 cm. There is no hydronephrosis. There is a large shadowing staghorn calculus in the lower pole of left kidney measuring at least 1.7 cm. URINARY BLADDER: No acute abnormality. Bilateral ureteral jets are seen. US/Kidney and Bladder IMPRESSION: * Staghorn calculus in the left kidney as seen on the prior CT measuring at least 1.7 cm. * Nonobstructive 6 mm stone in the right kidney. Electronically Signed: Eduin Wells MD at 17:55 EDT ,
== END | disposition home or self-care (01) ==
LOC: US 11:47
PROVIDERS: PCP Family Medicine; Referring Provider Internal Medicine Nephrology; Visit Provider Internal Medicine Nephrology
DX: I12.9 Hypertensive chronic kidney disease with stage 1 through stage 4 chronic kidney disease, or unspecified chronic kidney disease (principal); E11.22 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 with diabetic chronic kidney disease; E03.9 Hypothyroidism, unspecified; Q61.9 Cystic kidney disease, unspecified; D63.1 Anemia in chronic kidney disease; N18.9 Chronic kidney disease, unspecified
CPT/HCPCS: 76770

== ENCOUNTER → 2023-01-15 | Outpatient (CLI) | payer OTHER, SELFPAY ==
[2023-01-15 15:22] LABS: Protein, Urine (Random) 16.2 mg/dL (<11.9); Protein:Creat Ratio 219 mg/g CRE (0-200)
[2023-01-15 15:53] LABS: Albumin, Serum 3.2 g/dL (3.2-5.0); BUN 13 mg/dL (7-18); BUN/Creat Ratio 10.2 RATIO (10-20); Calcium,Total 8.7 mg/dL (8.5-10.1); Chloride 107 mmol/L (98-107); Creatinine, Serum 1.28 mg/dL (0.70-1.30); EST Glomerular Filtration Rate 61 mL/min (>60); Est Glom Filt Rate - Afr Amer 74 mL/min (>60); Glucose 74 mg/dL (74-106); Phosphorus 2.8 mg/dL (2.5-4.9); Potassium 3.2 mmol/L (3.5-5.1); Sodium Level 139 mmol/L (136-145)
== END | disposition home or self-care (01) ==
LOC: MTLAB 11:41
PROVIDERS: PCP Family Medicine; Referring Provider Internal Medicine Nephrology; Visit Provider Internal Medicine Nephrology
DX: I12.9 Hypertensive chronic kidney disease with stage 1 through stage 4 chronic kidney disease, or unspecified chronic kidney disease (principal); N18.32 Chronic kidney disease, stage 3b; D63.1 Anemia in chronic kidney disease
CPT/HCPCS: 36415; 80069; 82570; 84156

== ENCOUNTER 2023-02-18 09:32 | Day surgery (SDC) | payer OTHER, SELFPAY ==
[2023-02-18 09:54] VITALS: BP 127/67; PULSE 78; RESP 16; TEMP 36.5; O2SAT 98; BMI 47.5
[2023-02-18] MEDS: Lactated Ringers 1,000 ML 15 ML IV (09:58)
--- NOTE | 2023-02-18 10:33 | RAD_ITS ---
STUDY: X-RAY - CERVICAL SPINE REASON FOR EXAM: Male, 57 years old. MEDIAL BRANCH NERVE BLOCK C3-C6, LEFT TECHNIQUE: 5 Limited C-arm view(s) of the cervical spine were obtained. 6 seconds of fluoroscopy. COMPARISON: None FINDINGS: 5 limited intraoperative C-arm films obtained as the patient is undergoing left C3-C6 nerve block. No intraoperative complications RAD/Cerv Spine 4 or 5 Views IMPRESSION: No intraoperative complications during C3-C6 left nerve block Electronically Signed: Issa Goncalves MD at 12:16 EST ,
[2023-02-18] MEDS: MethylPREDNISolone Acetate 80 MG/ML Vial (10:37)
--- NOTE | 2023-02-18 10:40 | OP.PCM_ITS ---
Report of Operation Date of Procedure: 02/18/23 Description of Surgical Findings:: PREOPERATIVE DIAGNOSIS: Cervical spondylosis, cervical degenerative disc disease, cervical facet arthropathy POSTOPERATIVE DIAGNOSIS: Cervical spondylosis, cervical degenerative disc disease, cervical facet arthropathy PROCEDURE PERFORMED: Left-sided cervical medial branch block at C3, C4, C5, and C6. ANESTHESIA: MAC. BLOOD LOSS: Minimal. COMPLICATIONS: None. DESCRIPTION OF PROCEDURE: History and physical of today was reviewed. Risks and benefits of the procedure were explained. The patient understood and agreed to proceed. Informed consent was obtained. IV inserted per routine protocol. The patient was taken to the operating room and placed in the prone position with a pillow positioned underneath the chest. The neck area was prepped and draped in a sterile fashion using iodine x3. Under fluoroscopy guidance on an AP view, the C3 through C6 vertebral bodies were visualized at approximately 10- degree angle, starting on the left C3, ending on the left C6, passing through the C4 and C5. Using a 25-gauge 3-1/2-inch spinal needle, the needle was advanced via the skin. The tip of the needle was maneuvered and directed toward s the epiphyseal junction of each corresponding vertebra. Once the tip of the needle was at the vicinity of the medial branch, the needle was pulled approximately 2 mm off the bone. After negative aspiration of blood or CSF and confirmation on AP, oblique as well as lateral view, a total of 4 mL of preservative-free 0.25% Marcaine with 80 mg of Depo-Medrol was injected in divided doses between those four levels. The needles were then removed intact. The patient experienced no sign or symptoms of intrathecal or intravascular injection. The patient experienced no paresthesia. The procedure was completed without any apparent difficulty or any complications. The patient appeared to tolerate it well. ASSESSMENT AND PLAN: This is a 57-year-old Male with cervical spondylosis, cervical degenerative disc disease, cervical facet arthropathy status post left-sided cervical medial branch block at C3-C6, patient will continue his current medications, patient will follow up in approximately 2 weeks for reevaluation.
[2023-02-18 10:47] VITALS: BP 104/68; BP 127/67; PULSE 70; RESP 18; TEMP 36.2; O2SAT 98
[2023-02-18 10:55] VITALS: BP 127/67; BP 128/63; PULSE 66; RESP 18; O2SAT 95
[2023-02-18 11:00] VITALS: BP 127/67; BP 137/63; PULSE 67; RESP 18; O2SAT 96
[2023-02-18 11:05] VITALS: BP 127/67; BP 132/63; PULSE 69; RESP 16; TEMP 36.6; O2SAT 96
[2023-02-18 11:18] VITALS: BP 127/67
== END 2023-02-18 11:42 | disposition home or self-care (01) ==
LOC: SDC 09:32 → AC 09:33
PROVIDERS: PCP Family Medicine; Referring Provider Family Medicine; Visit Provider Anesthesiology Pain Medicine
PROC: 3E0S3BZ Introduction of Anesthetic Agent into Epidural Space, Percutaneous Approach (ICD-10-PCS; CPT 62322; principal; 2023-02-18 11:05)
DX: M50.10 Cervical disc disorder with radiculopathy, unspecified cervical region (principal); I11.0 Hypertensive heart disease with heart failure; I50.9 Heart failure, unspecified; Z79.4 Long term (current) use of insulin; E11.9 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 without complications; M48.02 Spinal stenosis, cervical region; M47.812 Spondylosis without myelopathy or radiculopathy, cervical region; Z79.82 Long term (current) use of aspirin; Z79.01 Long term (current) use of anticoagulants; Z79.890 Hormone replacement therapy; Z79.899 Other long term (current) drug therapy
CPT/HCPCS: 64491; 64492; 00600; 64490; 72050; J7120

== ENCOUNTER → 2023-02-26 | Outpatient (CLI) | payer OTHER, SELFPAY ==
[2023-02-26 18:12] LABS: T4 Free Direct 0.85 ng/dL (0.76-1.46); Thyroid Stim Hormone (TSH) 8.76 uIU/mL (0.358-3.74)
== END | disposition home or self-care (01) ==
LOC: MTLAB 16:00
PROVIDERS: PCP Family Medicine; Referring Provider Nurse Practitioner Family; Visit Provider Nurse Practitioner Family
DX: E03.9 Hypothyroidism, unspecified (principal)
CPT/HCPCS: 36415; 84439; 84443

== ENCOUNTER → 2023-02-28 | Outpatient (CLI) | payer OTHER, SELFPAY ==
--- NOTE | 2023-02-28 13:45 | FLU_PTH ---
PATIENT: KRUNAL LEOS LOC: [facility] U#:[id number] AGE/SX: 57/M ROOM: RE02/28/[address]: Dr. Olman Rushing MD : 1965 BED: DIS: 02/28/2023 SPEC #: [id number] RECD: 02/28/23 16:11 STATUS: ARDEN ORTEGA #: [id number] CATALINA: 02/28/23 13:[address]: Olman Rushing DEPT: CYTOLOGY RECD BY: Shahida Walters ENTERED: 03/01/23 09:16 SP TYPE: Fluid OTHR DR: Dr. Radha Khan MD Tissues: Thyroid gland, NOS Procedures: Special Stain Group II Surgery Specimen Level IV Cytospin Fluid Cytology Other HEADER OPERATION: Fine needle aspiration, right thyroid nodule PRE-OP DIAGNOSIS: Right thyroid nodule TISSUE SUBMITTED: A - Right thyroid nodule fluid, B - Right thyroid nodule x4 slides DIAGNOSIS CYTOLOGY A. Fine needle aspiration, right thyroid nodule (cytospin and cell block): Negative for malignant cells. B. Fine needle aspiration, right thyroid nodule (smears): Nondiagnostic, [place] Category System I. See comment. AM:aneesh 03/04/2023 COMMENT B. The specimen contains very rare follicular cells and is insufficient for further evaluation. Clinical correlation is suggested. The [place] System for thyroid diagnostic categorization was used in the evaluation of this case. CYTOLOGY STUDY Slides are reviewed. CYTOLOGY GROSS A - Received is 30 ml of red cloudy fluid labeled with the patient's name and and designated per the requisition as Right thyroid nodule. Submitted for cytology preparation including cell block. B - Received are four smears labeled with the patient's name and designated per the requisition as Right thyroid nodule. Submitted for staining. / aneesh 03/01/2023 TC:5 CPT: 59530 x2, 25900
== END | disposition home or self-care (01) ==
LOC: LABSPEC 16:14
PROVIDERS: PCP Family Medicine; Referring Provider Surgery; Visit Provider Surgery
DX: E04.1 Nontoxic single thyroid nodule (principal)
CPT/HCPCS: 88108; 88161; 88305; 88313

== ENCOUNTER → 2023-03-15 | Outpatient (CLI) | payer OTHER, SELFPAY ==
--- NOTE | 2023-03-15 | ASPIG_PTH ---
PATIENT: KRUNAL LEOS LOC: [facility]#:[id number] AGE/SX: 57/M ROOM: RE03/15/[address]: Shanti Baum PA-C : 1965 BED: DIS: 03/15/2023 SPEC #: [id number] RECD: 03/15/23 11:00 STATUS: ARDEN REQ #: [id number] CATALINA: 03/15/23 00:[address]: Olman Rushing DEPT: CYTOLOGY RECD BY: Shahida Walters ENTERED: 03/15/23 11:47 SP TYPE: ASP OUT OTHR DR: MD Dr. Olman Chen MD Amanda Griffith, PA-C Tissues: Thyroid gland, NOS Procedures: FNA Specimen Adequacy Special Stain Group II Surgery Specimen Level IV Cytology Other Comments: @ Ordering doctor for SSII edited from ELDA to @ by ARIE at 03/21/23 1259 @ Ordering doctor for SUIV edited from ELDA to DR.MBORTZ Borges by ARIE at 03/21/23 1259 @ Ordering doctor for CYOTHER edited from ELDA to @ by ARIE at 03/21/23 1259 @ Ordering doctor for FNASA edited from ELDA to @ by ARIE at 03/21/23 1259 @ Submitting doctor edited from ELDA to DR.MBORTZ Borges by ARIE at 03/21/23 1259 HEADER OPERATION: Ultrasound-guided right thyroid fine needle aspiration PRE-OP DIAGNOSIS: Right thyroid nodule TISSUE SUBMITTED: Right thyroid nodule DIAGNOSIS CYTOLOGY Right thyroid nodule, ultrasound-guided fine needle aspiration (smears and cell block): Consistent with benign follicular nodule, [place] Category II. Adequate for evaluation. See comment. SJ:aneesh 03/19/2023 COMMENT The specimen is evaluated at the time of biopsy by Dr. Celaning. Immediate Evaluation = Follicular cells noted. Adequate for evaluation. Correlation with clinical, radiologic findings and appropriate follow up are necessary. The [place] System for thyroid diagnostic categorization was used in the evaluation of this case. The specimen is saved for Afirma studies, multi-gene next-generation sequencing panel. If it is needed, please notify the laboratory. Please make reference to previous specimen ([id number]) fine needle aspiration, right thyroid nodule with diagnosis of atypia of undetermined significance in the background of colloid material ([place] Category III) and left thyroid nodule, FNA with diagnosis of consistent with benign follicular nodule with cystic changes. CYTOLOGY STUDY Slides are reviewed. CYTOLOGY GROSS Received is 0.5 cc of bloody fluid labeled with the patient's name, and designated right thyroid nodule. Seven imprints and five paps are made from the submitted fluid and the rest is added to CytoLyt for cell block preparation. Submitted for cytology study. / SJ:rg 03/15/2023 TC:5 CPT: 64383, 26116, 63705 ADDENDUM ADDENDUM ADDENDUM ADDENDUM ADDENDUM ADDENDUM ADDENDUM 04/17/2023 09:08 ADDENDUM 04/17/2023 09:08 ADDENDUM 04/17/2023 09:08 ADDENDUM 04/17/2023 09:08 ADDENDUM 04/17/2023 09:08 AFIRMA RESULTS REPORT RESULTS INTERPRETATION: The result of this 1.5 cm [place] III nodule B is Afirma GSC benign, which suggests a low risk of cancer of approximately 4%. Please see complete report in e-chart or EMR
--- NOTE | 2023-03-15 10:01 | US_ITS ---
CLINICAL HISTORY: Male, 57 years old. Right thyroid nodule. PROCEDURE: BIOPSY - right thyroid lobe BIOPSY GUIDANCE - Ultrasound TECHNIQUE: (All elements of maximal sterile barrier technique followed, including US elements as applicable) Under direct sonographic guidance, the surgeon performed 2 biopsies of the 1.6 cm x 1.2 cm x 1.2 cm nodule in the upper pole of the right lobe of thyroid. US/FNA 1st Biopsy w/ US IMPRESSION: Ultrasound-guided biopsy of the nodular density in the superior aspect of the right lobe of the thyroid gland. Electronically Signed: Chicho Monsalve MD at 14:18 EST ,
--- NOTE | 2023-03-15 18:34 | PCM.OP.PRO ---
Procedure Report Date of Procedure: 03/15/23 Indication: Right thyroid nodule with insufficient cellularity on last biopsy After obtaining patient consent and conducting a timeout amongst those present, the procedure was commenced by locating the suspicious nodule in the superior pole of the right thyroid lobe using ultrasound. Superficially, the skin was cleaned with an alcohol swab and a wheal of local anesthetic was created after instilling 3ml 1% lidocaine then, under ultrasound guidance, multiple passes were made into the thyroid nodule using a 22-gauge needle. Once an adequate specimen was detected within the hub of the needle and bottom of the syringe, this was handed off the field to waiting pathology. A second pass was made in a similar manner using another 22-gauge needle. This specimen, also, was passed off the field for cytopathologic evaluation. External pressure was applied to the neck to assist with hemostasis. A quick examination was made with ultrasound to exclude any evidence of hematoma formation. Pathology then confirmed that we had sufficient cellularity and the surface of the neck was cleaned, dried, and a bandage was applied. Patient was gradually returned to the sitting position and after short period of monitoring was dismissed. Wound care instructions and expectations regarding pathologic processing were discussed prior to dismissal. Complications: None Estimated blood loss: 1ml Procedures Integumentary 10xxx: 22915 Fna bx w/us gdn 1st les
== END | disposition home or self-care (01) ==
PROVIDERS: PCP Family Medicine; Referring Provider Physician Assistant; Visit Provider Physician Assistant
DX: E04.1 Nontoxic single thyroid nodule (principal)
CPT/HCPCS: 10005; 88161; 88172; 88305; 88313

== ENCOUNTER → 2023-04-25 | Outpatient (CLI) | payer OTHER, SELFPAY ==
[2023-04-25 15:41] LABS: Hemoglobin 11.5 g/dL (13.0-16.5); Mean Corp Hgb Conc 30.3 g/dL (32-36); Mean Platelet Vol. 9.7 fl (6.2-12.0); Platelet Count 289 K/mm3 (150-450); RBC Distribution Width CV 18.6 % (11.6-14.6); RBC Distribution Width SD 48.6 fl (35.1-43.9); White Blood Count 10.8 K/mm3 (4.4-11.0)
[2023-04-25 16:22] LABS: BNP,B-Type NATRIURETIC PEPTIDE 13.4 pg/mL (0-100)
[2023-04-25 16:44] LABS: ALB/GLOB Ratio 0.7 RATIO (0.9-2.4); AST(SGOT) 17 U/L (15-37); Alanine Aminotransfer ALT/SGPT 27 U/L (16-61); Albumin, Serum 3.5 g/dL (3.2-5.0); Alkaline Phosphatase 102 U/L (45-117); Anion Gap 9 (5-15); BUN 25 mg/dL (7-18); BUN/Creat Ratio 19.2 RATIO (10-20); Calcium,Total 9.2 mg/dL (8.5-10.1); Chloride 108 mmol/L (98-107); EST Glomerular Filtration Rate 60 mL/min (>60); Est Glom Filt Rate - Afr Amer 73 mL/min (>60); Globulin 4.9 g/dL (2.2-4.2); Glucose 157 mg/dL (74-106); Potassium 3.9 mmol/L (3.5-5.1); Protein, Total 8.4 g/dL (6.4-8.2); Sodium Level 135 mmol/L (136-145); Thyroid Stim Hormone (TSH) 1.74 uIU/mL (0.358-3.74)
== END | disposition home or self-care (01) ==
LOC: LAB 15:04
PROVIDERS: PCP Family Medicine; Referring Provider Nurse Practitioner Family; Visit Provider Nurse Practitioner Family
DX: R06.02 Shortness of breath (principal); R00.0 Tachycardia, unspecified
CPT/HCPCS: 36415; 80053; 83880; 84443; 85027

== ENCOUNTER → 2023-05-01 | Outpatient (CLI) | payer OTHER, SELFPAY ==
--- NOTE | 2023-05-01 07:45 | CDU_ITS ---
Reason For Study: Lt Carotid Bruit Rt. Velocities/BP Lt. Velocities/BP Prox CCA 136.3/19.4 cm/sec. Prox CCA 163.2/37.7 cm/sec. Mid CCA 112.5/24.8 cm/sec. Mid CCA 229.9/41.6 cm/sec. Dist CCA 138.1/28.5 cm/sec. Dist CCA 309.6/46.7 cm/sec. Prox ICA 100.4/22.7 cm/sec. Prox ICA 189.4/44.3 cm/sec. Mid ICA 97.9/28.5 cm/sec. Mid ICA 166.3/39.8 cm/sec. Dist ICA 90.0/25.5 cm/sec. Dist ICA 103.4/23.0 cm/sec. Rt. ICA/CCA = 0.9. Lt. ICA/CCA = 0.8. Prox ECA 361.0/32.3 cm/sec. Prox ECA 195.9/14.5 cm/sec. Rt. Vert. 54.6/16.2 cm/sec. Lt. Vert. 52.7/10.9 cm/sec. Right Extracranial There is heterogeneous, irregular atherosclerotic plaque noted in the right common carotid artery. There is heterogeneous, irregular atherosclerotic plaque noted in the right internal carotid artery. There is heterogeneous, irregular atherosclerotic plaque noted in the right external carotid artery. Antegrade flow is noted in the right vertebral artery. Left Extracranial There is heterogeneous, irregular atherosclerotic plaque noted in the left common carotid artery. There is heterogeneous, irregular atherosclerotic plaque noted in the left internal carotid artery. The atherosclerotic plaque causes acoustic shadowing. There is heterogeneous, irregular atherosclerotic plaque noted in the left external carotid artery. The atherosclerotic plaque causes acoustic shadowing. Antegrade flow is noted in the left vertebral artery. Procedure Carotid Duplex 09589. This is a Carotid Duplex examination using B-mode, color flow and specral Doppler. The exam was diagnostic. Exam performed in department. VL/Carotid Duplex Ultrasound Interpretation Summary Irregular plaque with calcific shadowing at the proximal right internal carotid artery with less than 50% stenosis of the internal carotid artery. Minimal velocity elevation within the distal right common carotid artery likely consistent with mild to moderate disease. Greater than 50% stenosis right external carotid artery Diffuse irregular plaque throughout the left common carotid artery. There is el evation in the distal left common carotid artery at 309 cm second peak stock flow concerning for sign ificant stenosis. 50 to 69% stenosis of the left internal carotid artery Less than 50% stenosis of the left external carotid artery although close to th is range. Patent and antegrade vertebral arteries bilaterally Findings are suggested to be more severe involving the left common carotid gama ry from the previous examination of October 01, 2022 Ordering Physician: Francois Valiente Referring Physician: Radha Nichols Performed By: Leon Donwing RVT
--- OUTSIDE RECORDS SUMMARY | 2023-05-01 08:05 | XMS RPT_ITS | CCD ---
Author Name Unknown Address [address] [facility] [address] [place] [address] Organization [facility] Care Team Providers Care Lease Administrator Name Role Phone Radha Khan Primary Care Provider Allergies Allergy Classification Reported Allergen(s) Allergy Type Date of Onset Reaction(s) Facility (1 source) Metoclopramide Drug Allergy Shortness of Breath [facility] Medications Completed/Discontinued Medications Medication Drug Class(es) Dates Sig (Normalized) Sig (Original) atenolol 100 mg oral tablet (1 source) beta-Adrenergic Benjy Start: 07-02-2005 take 1 tablet by mouth once daily ATENOLOL 100 MG TAB Take one(1) tablet daily by mouth 0 07/02/2005 Active Problems Active Problems Problem Classification Problem Date Documented Date Episodic/Chronic Diabetes mellitus without complication (1 source) 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; Translations: [Type II diabetes mellitus with complication] Onset: 07-11-2015 09-23-2015 Chronic Essential hypertension (1 source) Hypertensive disorder; Translations: [HTN (hypertension)] Onset: 09-20-2015 09-23-2015 Chronic Genitourinary congenital anomalies (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; Translations: [Unspecified congenital cystic kidney disease] Onset: 02-26-2007 02-26-2007 Chronic Hodgkin`s disease (1 source) Hodgkin's disease (clinical); Translations: [Hodgkin's disease] Onset: 09-20-2015 09-20-2015 Chronic Hyperplasia of prostate (1 source) Benign prostatic hypertrophy with outflow obstruction; Translations: [BPH (benign prostatic hypertrophy) with urinary obstruction] Onset: 07-04-2015 09-21-2015 Chronic Other nutritional; endocrine; and metabolic disorders (1 source) Morbid obesity; Translations: [Morbid obesity] Onset: 07-11-2015 09-20-2015 Chronic Residual codes; unclassified (1 source) Device in situ; Translations: [Mechanical venous thromboembolism (VTE) prophylaxis in place] Onset: 09-20-2015 09-21-2015 Thyroid disorders (1 source) Hypothyroidism; Translations: [Hypothyroid] Onset: 09-20-2015 09-22-2015 Chronic Unclassified (1 source) DISPOSITION AND FOLLOW-UP Onset: 09-20-2015 09-23-2015 Past or Other Problems Problem Classification Problem Date Documented Date Episodic/Chronic Abdominal pain (1 source) Left flank pain; Translations: [Left flank pain] Onset: 07-04-2015 07-04-2015 Episodic Calculus of urinary tract (1 source) Kidney stone; Translations: [Calculus of kidney] Onset: 09-09-2006 09-09-2006 Episodic Nonmalignant breast conditions (1 source) Breast lump; Translations: [Lump or mass in breast] Onset: 05-30-2007 05-30-2007 Episodic Other lower respiratory disease (1 source) Disorder of lung; Translations: [Other diseases of lung, not elsewhere classified] Onset: 02-26-2007 02-26-2007 Episodic Other nervous system disorders (1 source) Acute postoperative pain; Translations: [Pain, postoperative, acute] Onset: 09-20-2015 09-23-2015 Episodic Pleurisy; pneumothorax; pulmonary collapse (1 source) Pleural effusion; Translations: [Pleural effusion] Onset: 09-09-2015 09-23-2015 Episodic Results Test Name Value Interpretation Reference Range Facil ity Encounters Encounter Date Encounter Type Care Provider Facility Start: 12-27-2010 End: 12-27-2010 Patient encounter procedure Karlos Aquino Work Phone: [facility] Start: 12-27-2010 Results Only Karlos lehman Work Phone: [facility] Procedures Date Procedure Procedure Detail Performing Clinician Start: 12-27-2010 CONVERTED SURGICAL PATHOLOGY Karlos Aquino Work Phone: Plan of Treatment Date Care Activity Detail Author Start: 07-03-2020 PROSTATE CANCER SCRE ENING DISCUSSION PROSTATE CANCER SCREENING DISCUSSION [facility] Start: 12-01-2019 Influenza vaccination INFLUENZA (#1) [facility] Start: 09-09-2016 [object Object] DIABETIC FOOT EXAM C [facility] Start: 12-12-2015 HbA1c (Bld) [Mass fraction] HBA1C [facility] Start: 08-24-2013 SHINGRIX VACCINE (1 of 2) GONZALES GRIX VACCINE (1 of 2) [facility] Start: 08-24-2013 Tuberculosis screening COLOREC CHANA CANCER SCREENING,SEE MODIFIER [facility] Start: 08-24-1982 Urine microalbumin profile DTAP,TDAP ,TD (1 - Tdap) [facility] Start: 08-24-1981 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 Start: 08-24-1973 Hepatitis B screening URINE AL BUMIN:CREATININE RATIO [facility] Start: 08-24-1973 Hepatitis C antibody , confirmatory test DILATED RETINAL EXAM [facility] Payers Date Payer Category Payer Unknown [facility] [id number] 2009-Present [facility] [place] [id number] 1996 [facility] [id number] 1996-2015 [facility] [place] [id number] Social History Date Type Detail Facility Start: 06-14-2007 Tobacco smoking status NHIS Never sm oker [facility] Start: 06-14-2007 Alcohol intake Not Asked [facility] Sex Assigned At Not on file [facility] Medical Equipment Procedure Code Equipment Code Equipment Origin al Text Equipment Identifier Dates Stent Inlay Opti ma 7fr Taper [place] Green Phreecoat Polymer 28cm Ureteral - [id number] Start: 09-06-2015 Summary Purpose Family History No Family History Records FoundNo Family History Records Found Advance Directives Documents on File Type Date Recorded Patient Intake Nurse Expl anation Advance Directive(s) 08/19/2015 12:10 PM Advance Directive(s) 09/10/2015 4:56 PM Additional Source Comments (unrecognized sect ion and content) No Status Records FoundNo Status Records Found INFORMATION SOURCE (unrecogn ized section and content) DATE CREATED AUTHOR AUTHOR'S ORGANIZ ATION 09/10/2018 [facility] ([place]) Source Comments (unrecognize d section and content) In the event this informatio n is protected by the Federal Confidentiality of Alcohol and Drug Abuse Patient Records regulations: The Federal rules restrict any use of the information to criminally investigate or prosecute any alcohol or drug abuse patient.[facility] FOR RECORDS PERTAINING TO PATIENTS WHO ARE OR HAVE BEEN ENROLLED IN A CHEMICAL DEPENDENCY/SUBSTANCEABUSE PROGRAM, SOME INFORMATION MAY BE OMITTED. This clinical summary was aggregated from multiple sources. Caution should be exercised in using it in the provision of clinical care. This summary normalizes information from multiple sources, and as a consequence, information in this document may materially change the coding, format and clinical context of patient data. In addition, data may be omitted in some cases. CLINICAL DECISIONS SHOULD BE BASED ON THE PRIMARY CLINICAL RECORDS. [employer] [facility]. provides no warranty or guarantee of the accuracy or completeness of information in this document.
== END | disposition home or self-care (01) ==
LOC: CVS 07:44
PROVIDERS: PCP Family Medicine; Referring Provider Surgery; Visit Provider Surgery
DX: R09.89 Other specified symptoms and signs involving the circulatory and respiratory systems (principal)
CPT/HCPCS: 93880

== ENCOUNTER → 2023-06-06 | Outpatient (CLI) | payer OTHER, SELFPAY ==
--- NOTE | 2023-06-06 06:45 | CT_ITS ---
INDICATION: carotid stenosis EXAMINATION: CTA NECK - CTA Neck WO/W Contrast Injection TECHNIQUE: Routine carotid CT angiogram protocol was performed without and with IV contrast. NASCET criteria using the distal ICAs for comparison were used for evaluation of stenoses. 3D reconstructions were reviewed. A radiation dose optimization technique was used for this scan. IV Contrast dosage and agent: 100 cc of [id number]-370 RADIATION DOSAGE (If Supplied By Facility): CTDIvol = ( 16.52 ) mGy, DLP = ( 656.16 ) mGycm COMPARISON: Prior study dated: 08/01/2022 FINDINGS: AORTIC ARCH AND BRANCHES: Atherosclerotic calcifications of the aortic arch. RIGHT CCA: Scattered atherosclerotic plaques in the right common carotid artery with moderate calcified plaques in the right common carotid bulb slightly worse than the previous exam. No significant stenosis is seen. RIGHT ICA: Mild atherosclerotic plaques proximally without significant stenosis. Moderate stenosis at the origin of the right external carotid artery. LEFT CCA: Scattered atherosclerotic plaques in the left common carotid artery and left carotid bulb slightly increased in the carotid bulb region since previous exam with moderate stenosis. LEFT ICA: Scattered atherosclerotic plaques proximally without significant stenosis. RIGHT VERTEBRAL ARTERY: Mild atherosclerotic plaques proximally without significant stenosis. LEFT VERTEBRAL ARTERY: Occluded left vertebral artery from its origin reconstituted distally about the level of C3. NECK SOFT TISSUES: Unremarkable. LUNG APICES: Clear. BONES: No demonstrated acute osseous changes CT/CTA Neck W/WO Contrast IMPRESSION: 1. Scattered atherosclerotic calcifications in the common and internal carotid arteries bilaterally worse on the left side. 2. Moderate calcified plaques in the left carotid bulb slightly worse than the previous exam with approximately 50% stenosis. 3. Left vertebral artery similar to prior examination reconstituted distally. Electronically Signed: Vladimir Louie MD at 15:01 EST ,
--- OUTSIDE RECORDS SUMMARY | 2023-06-06 06:45 | XMS RPT_ITS | CCD ---
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 Name Role Phone Radha Khan Primary Care Provider Allergies Allergy Classification Reported Allergen(s) Allergy Type Date of Onset Reaction(s) Facility (1 source) Metoclopramide Drug Allergy Shortness of Breath [facility] Medications Completed/Discontinued Medications Medication Drug Class(es) Dates [...] Patient encounter procedure Karlos Aquino Work Phone: [facility] Start: 12-27-2010 Results Only Karlos lehman Work Phone: [facility] Procedures Date Procedure Procedure Detail Performing Clinician Start: 12-27-2010 CONVERTED SURGICAL PATHOLOGY Karlos Aquino Work Phone: Plan of Treatment Date Care Activity Detail Author Start: 07-03-2020 PROSTATE CANCER SCRE ENING DISCUSSION PROSTATE CANCER SCREENING DISCUSSION [facility] Start: 12-01-2019 Influenza vaccination INFLUENZA (#1) [facility] Start: 09-09-2016 [object Object] DIABETIC FOOT EXAM [facility] Start: 12-12-2015 HbA1c (Bld) [Mass fraction] HBA1C [facility] Start: 08-24-2013 SHINGRIX VACCINE (1 of 2) GONZALES GRIX VACCINE (1 of 2) [facility] Start: 08-24-2013 Tuberculosis screening COLOREC CHANA CANCER SCREENING,SEE MODIFIER [facility] Start: 08-24-1982 Urine microalbumin profile DTAP,TDAP ,TD (1 - Tdap) [facility] Start: 08-24-1981 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 PCP 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 HAND TONYA DISEASE VISIT ANNUAL PCP TEAM CHRONIC DISEASE VISIT [facility] Start: 08-24-1981 BP CONTROLLED (<130/80) BP CONTROLLE D (<130/80) [facility] Start: 08-24-1981 Hepatitis B surface antibody level LDL CHOLESTEROL [facility] Start: 08-24-1981 HEPATITIS C SCREENING HEPATITIS C SC REENING [facility] Start: 08-24-1981 HIV SCREENING HIV SCREENING [facility] Start: 08-24-1973 Hepatitis B screening URINE AL BUMIN:CREATININE RATIO [facility] Start: 08-24-1973 Hepatitis C antibody , confirmatory test DILATED RETINAL EXAM [facility] Payers Date Payer Category Payer Unknown [facility] [id number] 2009-Present [facility] [id number] 1996 Unknown [facility] [employer] [facility] [id number] 1996-2015 [facility] [id number] Social History Date Type Detail Facility Start: 06-14-2007 Tobacco smoking status NHIS Never sm oker [facility] Start: 06-14-2007 Alcohol intake Not Asked [facility] Sex Assigned At Not on file [facility] Medical Equipment Procedure Code Equipment Code Equipment Origin al Text Equipment Identifier Dates Stent Inlay Opti ma 7fr Taper Upper [place] Phreecoat Polymer 28cm Ureteral - [id number] Start: 09-06-2015 Summary Purpose Family History No Family History Records FoundNo Family History Records Found Advance Directives Documents on File Type Date Recorded Patient Cylinder Press Feeder Expl anation Advance Directive(s) 08/19/2015 12:10 PM Advance Directive(s) 09/10/2015 4:56 PM Additional Source Comments (unrecognized sect ion and content) No Status Records FoundNo Status Records Found INFORMATION SOURCE (unrecogn ized section and content) DATE CREATED AUTHOR AUTHOR'S ORGANIZ ATION 09/10/2018 [facility] Source Comments (unrecognize d section and content) In the event this informatio n is protected by the Federal Confidentiality of Alcohol and Drug Abuse Patient Records regulations: The Federal rules restrict any use of the information to criminally investigate or prosecute any alcohol or drug abuse patient.[facility] FOR RECORDS PERTAINING TO PATIENTS WHO ARE [...] BE BASED ON THE PRIMARY CLINICAL RECORDS. Recommind [facility]. provides no warranty or guarantee of the accuracy or completeness of information in this document.
[2023-06-06 07:10] LABS: CREATININE FINGERSTICK 1.4 mg/dL (0.70-1.30)
== END | disposition home or self-care (01) ==
LOC: CT 06:44
PROVIDERS: PCP Family Medicine; Referring Provider Surgery; Visit Provider Surgery
DX: I65.29 Occlusion and stenosis of unspecified carotid artery (principal)
CPT/HCPCS: 70498; Q9967

== ENCOUNTER → 2023-08-05 | Outpatient (CLI) | payer OTHER, SELFPAY ==
[2023-08-05 11:13] LABS: Absolute Lymphocyte Count 2.02 X10^3/uL (0.83-4.51); Absolute Neutrophil Count 5.8 X10^3/uL (2.0-7.7); Basophil# 0.08 X10^3/uL; Basophil% 0.9 % (0-1); Eosinophil# 0.29 X10^3/uL; Eosinophils% 3.2 % (0-5); Hematocrit 38.1 % (40-54); Hemoglobin 11.6 g/dL (13.0-16.5); Lymphocyte # 2.02 X10^3/ul (0.83-4.51); Lymphocyte % 22.3 % (19-41); Mean Corp Hgb Conc 30.4 g/dL (32-36); Mean Corpuscular Hgb 23.4 pg (27.0-32.0); Mean Platelet Vol. 9.8 fl (6.2-12.0); Monocyte# 0.87 X10^3/uL; Monocyte% 9.6 % (0-10); NRBC Flagged by Analyzer 0 % (0-5); Neutrophil # 5.77 X10^3/uL (2.7-7.7); Neutrophil % 63.6 % (47-70); Platelet Count 277 K/mm3 (150-450); RBC Distribution Width CV 18.6 % (11.6-14.6); RBC Distribution Width SD 51.4 fl (35.1-43.9); Red Blood Count 4.95 M/mm3 (4.6-6.2); White Blood Count 9.1 K/mm3 (4.4-11.0)
[2023-08-05 11:54] LABS: PTHIN 71.4 pg/mL (18.4-80.1)
[2023-08-05 12:07] LABS: Albumin, Serum 3.3 g/dL (3.2-5.0); BUN 28 mg/dL (7-18); BUN/Creat Ratio 25.5 RATIO (10-20); Calcium,Total 9.3 mg/dL (8.5-10.1); Chloride 108 mmol/L (98-107); EST Glomerular Filtration Rate 73 mL/min (>60); Est Glom Filt Rate - Afr Amer 88 mL/min (>60); Ferritin 20 ng/mL (26-388); Glucose 158 mg/dL (74-106); Iron 42 ug/dL (65-175); Iron Binding Capacity,Total 383 ug/dL (250-450); Phosphorus 3.9 mg/dL (2.5-4.9); Potassium 4.1 mmol/L (3.5-5.1); Sodium Level 136 mmol/L (136-145); Uric Acid 7.3 mg/dL (3.5-7.2)
[2023-08-05 12:16] LABS: Protein:Creat Ratio 371 mg/g CRE (0-200)
== END | disposition home or self-care (01) ==
LOC: LAB 10:22
PROVIDERS: PCP Family Medicine; Referring Provider Internal Medicine Nephrology; Visit Provider Internal Medicine Nephrology
DX: I12.9 Hypertensive chronic kidney disease with stage 1 through stage 4 chronic kidney disease, or unspecified chronic kidney disease (principal); N18.31 Chronic kidney disease, stage 3a; D63.1 Anemia in chronic kidney disease
CPT/HCPCS: 36415; 80069; 82570; 82728; 83540; 83550; 83970; 84156; 84550; 85025

== ENCOUNTER → 2023-09-19 | Outpatient (CLI) | payer OTHER, SELFPAY ==
--- NOTE | 2023-09-19 15:26 | RAD_ITS ---
STUDY: X-RAY - LUMBAR SPINE REASON FOR EXAM: Male, 58 years old. PAIN TECHNIQUE: 5 view(s) of the lumbar spine were obtained. COMPARISON: None FINDINGS: Normal lumbar lordosis. There is no substantial scoliosis. There is a grade 2 spondylolisthesis at L5-S1. Normal vertebral bodies with mild spurring at the endplates. Normal disc space heights. The soft tissue structures are unremarkable. RAD/L/S Spine Min 4 Views IMPRESSION: There is a grade 2 spondylolisthesis at L5-S1. Mild degenerative vertebral changes with spurring at the endplates. Electronically Signed: Sergei Carballo DO at 17:37 EDT ,
--- NOTE | 2023-09-19 15:26 | RAD_ITS ---
INDICATION: PAIN EXAMINATION/TECHNIQUE: X-RAY - XR Spine Thoracic 3 Views COMPARISON: FINDINGS: VERTEBRAE: Preserved vertebral body height. Degenerative spurring at the vertebral endplates. No fracture. No spondylolisthesis. Preservation of the normal thoracic kyphosis. No significant facet arthropathy. DISCS: Disc spaces are maintained. Mild left basilar infiltrate/effusion. RAD/Thoracic Spine 3 Views IMPRESSION: Degenerative vertebral changes. Mild left basilar infiltrate/effusion. Electronically Signed: Sergei Carballo DO at 17:19 EDT ,
== END | disposition home or self-care (01) ==
LOC: MTRAD 15:25
PROVIDERS: PCP Family Medicine; Referring Provider Anesthesiology Pain Medicine; Visit Provider Anesthesiology Pain Medicine
DX: M54.2 Cervicalgia (principal)
CPT/HCPCS: 72072; 72110

== ENCOUNTER → 2023-09-26 | Outpatient (CLI) | payer OTHER, SELFPAY ==
[2023-09-26 18:15] LABS: Absolute Lymphocyte Count 1.81 X10^3/uL (0.83-4.51); Absolute Neutrophil Count 5.8 X10^3/uL (2.0-7.7); Basophil# 0.05 X10^3/uL; Basophil% 0.6 % (0-1); Eosinophil# 0.27 X10^3/uL; Eosinophils% 3.1 % (0-5); Hematocrit 35.7 % (40-54); Hemoglobin 10.9 g/dL (13.0-16.5); Lymphocyte # 1.81 X10^3/ul (0.83-4.51); Lymphocyte % 20.9 % (19-41); Mean Corp Hgb Conc 30.5 g/dL (32-36); Mean Corpuscular Hgb 23.3 pg (27.0-32.0); Mean Corpuscular Volume 76.4 fL (80-94); Mean Platelet Vol. 10.1 fl (6.2-12.0); Monocyte# 0.69 X10^3/uL; NRBC Flagged by Analyzer 0 % (0-5); Neutrophil # 5.79 X10^3/uL (2.7-7.7); Neutrophil % 67.1 % (47-70); Platelet Count 252 K/mm3 (150-450); RBC Distribution Width CV 17.8 % (11.6-14.6); RBC Distribution Width SD 48.3 fl (35.1-43.9); Red Blood Count 4.67 M/mm3 (4.6-6.2); White Blood Count 8.6 K/mm3 (4.4-11.0)
[2023-09-26 18:46] LABS: ALB/GLOB Ratio 0.7 RATIO (0.9-2.4); AST(SGOT) 18 U/L (15-37); Alanine Aminotransfer ALT/SGPT 18 U/L (16-61); Albumin, Serum 3.4 g/dL (3.2-5.0); Alkaline Phosphatase 98 U/L (45-117); Anion Gap 12 (5-15); BUN 35 mg/dL (7-18); BUN/Creat Ratio 25.5 RATIO (10-20); Calcium,Total 8.8 mg/dL (8.5-10.1); Chloride 105 mmol/L (98-107); Creatinine, Serum 1.37 mg/dL (0.70-1.30); EST Glomerular Filtration Rate 56 mL/min (>60); Est Glom Filt Rate - Afr Amer 68 mL/min (>60); Globulin 4.9 g/dL (2.2-4.2); Glucose 260 mg/dL (74-106); Magnesium 2.1 mg/dL (1.6-2.6); Potassium 4.2 mmol/L (3.5-5.1); Protein, Total 8.3 g/dL (6.4-8.2); Sodium Level 135 mmol/L (136-145); T4 Free Direct 1.22 ng/dL (0.76-1.46); Thyroid Stim Hormone (TSH) 1.67 uIU/mL (0.358-3.74)
[2023-09-26 19:01] LABS: Bilirubin, Direct 0.12 mg/dL (0.00-0.30); Cholesterol 156 mg/dL (200); High Density Lipoprotein 31 mg/dL; Triglycerides 418 mg/dL
[2023-09-26 19:07] LABS: Vitamin B12 331 pg/mL (211-911)
[2023-10-06 20:07] LABS: Free Lambda Light Chains 46.8 mg/L (5.7-26.3); Vitamin B1, Thiamine 128.1 nmol/L (66.5-200.0)
== END | disposition home or self-care (01) ==
LOC: MTLAB 15:42
PROVIDERS: PCP Family Medicine; Referring Provider Psychiatry & Neurology Neurology; Visit Provider Nurse Practitioner Family
DX: R06.02 Shortness of breath (principal); I48.0 Paroxysmal atrial fibrillation; E11.65 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 mellitus with hyperglycemia; Z79.4 Long term (current) use of insulin; E11.40 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 with diabetic neuropathy, unspecified; R00.0 Tachycardia, unspecified; R42 Dizziness and giddiness; G47.33 Obstructive sleep apnea (adult) (pediatric); E78.5 Hyperlipidemia, unspecified
CPT/HCPCS: 36415; 80053; 80061; 82248; 82607; 82746; 83735; 83883; 84425; 84439; 84443; 85025

== ENCOUNTER → 2023-10-01 | Outpatient (CLI) | payer OTHER, SELFPAY | END | disposition home or self-care (01) | PROVIDERS: PCP Family Medicine; Referring Provider Nurse Practitioner Family; Visit Provider Nurse Practitioner Family | DX: R42 Dizziness and giddiness (principal); I48.0 Paroxysmal atrial fibrillation | CPT/HCPCS: 93225; 93226 ==

== ENCOUNTER → 2023-10-14 | Outpatient (CLI) | payer OTHER, SELFPAY ==
[2023-10-16 13:08] LABS: Albumin 3.6 g/dL (2.9-4.4); Alpha-1-Globulins 0.3 g/dL (0.0-0.4); Immunoglobulin A 304 mg/dL (90-386); Immunoglobulin G 1968 mg/dL (603-1613); Immunoglobulin M 209 mg/dL (20-172); PROEL- TOTAL PROTEIN 8.1 g/dL (6.0-8.5)
== END | disposition home or self-care (01) ==
PROVIDERS: PCP Family Medicine; Referring Provider Psychiatry & Neurology Neurology; Visit Provider Psychiatry & Neurology Neurology
DX: G62.9 Polyneuropathy, unspecified (principal)
CPT/HCPCS: 36415; 82784; 84165; 86334; 86335

== ENCOUNTER → 2023-10-29 | Outpatient (CLI) | payer OTHER, SELFPAY ==
[2023-10-29 11:27] VITALS: PULSE 73; PULSE 79; PULSE 87; PULSE 89; PULSE 94; PULSE 99; O2SAT 91; O2SAT 92; O2SAT 93; O2SAT 94; O2SAT 98
--- NOTE | 2023-10-30 12:36 | PCM.PSN.6M ---
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 Assistive device used: None Pre-test Oxygen Delivery Method Room Air Pulse Ox (%) 98 Pulse Rate (60-100 beats/min) 73 Dyspnea Marilyn Scale (0-10) 0 Exertion Marilyn Scale (6-20) 6 1st minute Oxygen Delivery Method Room Air Pulse Ox (%) 94 Pulse Rate (60-100 beats/min) 87 2nd minute Oxygen Delivery Method Room Air Pulse Ox (%) 93 Pulse Rate (60-100 beats/min) 89 3rd minute Oxygen Delivery Method Room Air Pulse Ox (%) 93 Pulse Rate (60-100 beats/min) 94 4th minute Oxygen Delivery Method Room Air Pulse Ox (%) 92 Pulse Rate (60-100 beats/min) 94 5th minute Oxygen Delivery Method Room Air Pulse Ox (%) 92 Pulse Rate (60-100 beats/min) 94 6th minute Oxygen Delivery Method Room Air Pulse Ox (%) 91 Pulse Rate (60-100 beats/min) 99 Dyspnea Marilyn Scale (0-10) 3 Exertion Marilyn Scale (6-20) 14 Post-test Oxygen Delivery Method Room Air Pulse Ox (%) 98 Pulse Rate (60-100 beats/min) 79 Full Laps Walked 12 Partial Lap, Number of Tiles Walked 16 Total Distance Walked (ft) 724 Interpretation Interpretation: The patient ambulated 724 feet over the course of 6 minutes beginning on room air without assistive devices. Pretesting oxygen saturation was noted to be 98% on room air. With ambulation, the guera oxygen saturation was 91%. This represents a significant exertional oxygen desaturation, consistent with a pulmonary limitation to exercise tolerance. Recommendations Recommendations: There is no indication for the use of supplemental oxygen at this time. However, close interval follow-up was recommended, given the degree of oxygen desaturation noted during the study.
== END | disposition home or self-care (01) ==
LOC: PSN 11:09
PROVIDERS: PCP Family Medicine; Referring Provider Nurse Practitioner Acute Care; Visit Provider Nurse Practitioner Acute Care
DX: R06.02 Shortness of breath (principal)
CPT/HCPCS: 94618

== ENCOUNTER → 2023-10-31 | Outpatient (CLI) | payer OTHER, SELFPAY | END | disposition home or self-care (01) | LOC: PSN 09:08 | PROVIDERS: PCP Family Medicine; Referring Provider Nurse Practitioner Acute Care; Visit Provider Nurse Practitioner Acute Care | DX: R06.02 Shortness of breath (principal) | CPT/HCPCS: 94060; 94726; 94729 ==

== ENCOUNTER 2023-11-04 08:18 | Day surgery (SDC) | payer OTHER, SELFPAY ==
[2023-11-04] VITALS (7 sets, daily range): BP systolic 104–148; BP diastolic 62–74; PULSE 69–74; RESP 16–20; TEMP 36.6–36.7; O2SAT 95–99; BMI 47.5
[2023-11-04] MEDS: MethylPREDNISolone Acetate 80 MG/ML Vial (07:14)
--- NOTE | 2023-11-04 08:54 | PRE.ANES_ITS ---
ASA Classification* ASA Classification ASA Classification: 2 and 3 Assessment & Plan Anesthesia* Anesthesia Assessment Anesthesia Assessment: Discussed sedation and/or anesthesia options, risks, benefits, and alternatives with patient/parents/legal guardian/POA. Questions invited. The patient/parents/legal guardian/POA seems to understand and agrees to proceed with anesthesia plan. Reviewed the physical assessment, medical history, allergy history and patient home medications list prior to surgery/procedure/anesthetic and documented any changes. Performed airway and anesthesia risk assessments. Anesthesia Type Anesthesia Type: MAC (*see written pre anesthesia record for full assessment) Anesthesia Focused Assessment* Airway Assessment Mouth opens: >3 cm Mallampati Score: III Focused Labs Anesthesia Preop lab: CBC WBC 8.6 K/mm3 (4.4-11.0) 09/26/23 15:42 RBC 4.67 M/mm3 (4.6-6.2) 09/26/23 15:42 Hgb 10.9 g/dL (13.0-16.5) L 09/26/23 15:42 Hct 35.7 % (40-54) L 09/26/23 15:42 Plt Count 252 K/mm3 (150-450) 09/26/23 15:42 CHEMISTRY Potassium 4.2 mmol/L (3.5-5.1) 09/26/23 15:42 Sodium 135 mmol/L (136-145) L 09/26/23 15:42 Magnesium 2.1 mg/dL (1.6-2.6) 09/26/23 15:42 Phosphorus 3.9 mg/dL (2.5-4.9) 08/05/23 10:25 BUN 35 mg/dL (7-18) H 09/26/23 15:42 Creatinine 1.37 mg/dL (0.70-1.30) H 09/26/23 15:42 Glucose 260 mg/dL (74-106) H 09/26/23 15:42 POC Glucose 343 mg/dL (74-106) H 08/03/22 11:24 TSH 1.67 uIU/mL (0.358-3.74) 09/26/23 15:42 COAG PT 13.8 SECONDS (11.7-14.9) 08/01/22 19:18 Pre-Assessment Diagnosis/Proposed Procedure Planned Operative Procedure(s): oracio Anesthesia History Anesthesia History - termite helper: Anesthesia History - termite helper Hx Hospitalization No 02/14/23 09:43 Any Problems With Anesthesia No 02/14/23 09:43 Cholinesterase deficiency No 02/14/23 09:43 You/Your Family Experience No 02/14/23 09:43 fever (hyperthermia) with Relationship Recent Exposure to Contagious No 02/18/23 09:54 Disease Does patient have nerve No 02/14/23 09:43 stimulator Patient instructed to have device shut off --Does patient have Pacemaker or ICD? When Was Last Pacemaker Check QUESTION #4 FULL TEXT: You/Your Family Experience fever (hyperthermia) with Anesthesia Last Oral Intake Last Oral intake: Last Oral Intake NPO since Meds taken in AM with sips of water? Meds patient instructed to take am of surgery PONV PONV - termite helper: PONV - termite helper Female HX of Motion Sickness HX of N/V After Surgery Non-Smoker Duration of Surgery greater than 60 minutes Number of Risk Factors PONV Score Height & Weight Height & Weight: Anesthesia: Height & Weight Height 5 ft 9 in 10/29/23 11:27 Respiratory Assessment Respiratory Assessment - termite helper: Respiratory Tract Infection Hx - termite helper Hx Respiratory Tract Infection No 02/14/23 09:43 STOP Sleep Apnea STOP Sleep Apnea - termite helper: STOP Sleep Apnea - termite helper Hx Hypertension Yes 02/14/23 09:43 Hx Sleep Apnea Yes 02/18/23 11:05 CPAP Yes 02/18/23 10:47 BIPAP No 02/14/23 09:43 Do you snore loudly (louder than talking or can be heard Do you often feel tired/ fatigued/ sleepy during daytime? Has anyone observed you stop breathing during sleep? STOP Results QUESTION #5 FULL TEXT : Do you snore loudly (louder than talking or can be heard through closed doors)? 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 Specify any problems Hx of Preganancy in last 3 Months Nurse Filling Out Transfusion & Questions: Date: Time: Patient unable to answer at this time (ie. confused, unrespo /Reproduction History /Reproductive History - termite helper: /Reproductive Hx- termite helper Hx Now Gestational Age (in weeks): EDC: Hx Hx Para Hx Section SAB Active Medications Active Medications: Current Medications Generic Name Dose Route Start Last Admin Trade Name Freq PRN Reason Stop Dose Admin Lactated Ringer's 1,000 mls @ 15 mls/hr 11/04/23 08:30 IV .Q48H ALTA PFSH Medical History Mini stroke (~10/01/23) Wears glasses Depression Anxiety Cancer Thyroid disease Insulin dependent diabetes mellitus Arthritis History of renal disease Prostate disease Gastric reflux CPAP (continuous positive airway pressure) dependence Sleep apnea Shortness of breath on exertion History of echocardiogram History of stress test History of CHF (congestive heart failure) Cardiology follow-up encounter History of atrial fibrillation Double vision KIANNA treated with BiPAP Congestive heart failure (CHF) Low testosterone Carotid stenosis High cholesterol Vision loss of right eye Vision loss of left eye Anemia Non-smoker Atrial fibrillation Hypertension Obesity History of non-ST elevation myocardial infarction (NSTEMI) (03/28/20) TIA (transient ischemic attack) (2018) Hodgkin disease GERD (gastroesophageal reflux disease) BPH (benign prostatic hyperplasia) Hypothyroidism Essential (primary) hypertension Anxiety and depression Morbid obesity with BMI of 45.0-49.9, adult Nephrolithiasis Hyperlipidemia Diabetes mellitus, type II Home Medications ?Medication ?Instructions ?Recorded ?Last Taken ?Type levothyroxine 125 mcg tablet 125 mcg PO DAILY thyroid 05/03/15 02/18/23 History pantoprazole 40 mg tablet,delayed 40 mg PO DAILY acid reflux 05/03/15 02/18/23 History release (Protonix) tamsulosin 0.4 mg capsule 0.4 mg PO DAILY prostate 09/08/15 02/18/23 History buspirone 10 mg tablet 10 mg PO TID PRN PRN Anxiety 04/17/18 02/18/23 History duloxetine 60 mg capsule,delayed 60 mg PO DAILY depression 04/17/18 06/19/21 07:00 History release (Cymbalta) aspirin 81 mg chewable tablet 81 mg PO DAILY@0800 03/30/20 02/14/23 Rx 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 meter,continuous #1 ea 07/26/20 Unknown Rx (Dexcom G6 [employer]) pen needle, diabetic 31 gauge x #1,200 ea 12/22/20 Unknown History 08/14 pen needle, diabetic 32 gauge x #150 ea 06/01/21 Unknown Rx (BD Ultra-Fine Kiki Pen Needle) atorvastatin 80 mg tablet (Lipitor) 80 mg PO QHS cholesterol 09/04/21 Unknown History 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 transmitter (Dexcom #1 ea 12/29/21 Unknown Rx G6 Transmitter device) infusion set for insulin pump 10/08/22 Unknown History insulin pump controller 10/08/22 Unknown History insulin regular hum U-500 conc 500 75 unit (0.15 mL) continuous 12/04/22 Unknown Rx unit/mL subcutaneous soln (Humulin subcutaneous infusion DAILY #20 mL R U-500 (Concentrated) Insulin) metoprolol succinate 100 mg 100 mg PO DAILY #90 tabs 01/15/23 02/18/23 Rx tablet,extended release 24 hr hydrocodone-acetaminophen 5-325mg 1 tab PO BID 02/14/23 Unknown History 5mg-325mg 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 sensor (Dexcom G6 #1 ea 02/25/23 Unknown Rx Sensor device) furosemide 40 mg tablet (Lasix) 40 mg PO BID diuretic #180 tabs 04/25/23 Unknown Rx amlodipine 5 mg tablet 5 mg PO DAILY #30 tabs 05/02/23 Unknown Rx glimepiride 4 mg tablet 4 mg PO DAILY #90 tabs 06/06/23 Unknown Rx apixaban 5 mg tablet (Eliquis) 5 mg PO BID #180 tabs 07/21/23 Unknown Rx empagliflozin 25 mg tablet 25 mg PO DAILY #30 tabs 09/23/23 Unknown Rx (Jardiance) fenofibrate 54 mg tablet 54 mg PO DAILY #30 tabs 10/14/23 Unknown Rx lisinopril 20 mg tablet 20 mg PO DAILY #90 tabs 10/17/23 Unknown Rx Allergy/AdvReac Type Severity Reaction Status Date / Time metoclopramide HCl (From Allergy Severe Anaphylaxis Verified 10/17/23 13:17 Reglan) Family History Brother Heart disease Mother CVA (cerebral vascular accident) Hypertension Rheumatoid arthritis Father Diabetes Other Alcohol abuse ulcer disease Surgical History History of cardiac catheterization History of lymph node excision History of left heart catheterization (2009) Hx of nephrolithotomy with removal of calculi History of thoracentesis (2015) Social History household members: spouse and none Smoking Status: Never smoker Electronic Cigarette Use: not used second hand exposure: No alcohol intake: never substance use type: does not use what type of physical activity do you participate in: none Review of Systems (Anesthesia) ROS Narrative System reviewed and no additional complaints, except as documented.
[2023-11-04] MEDS: Lactated Ringers 1,000 ML 15 ML IV (09:36)
--- NOTE | 2023-11-04 09:48 | RAD_ITS ---
PROCEDURE: Caudal block. DATE OF EXAMINATION: November 04, 2023. INDICATION: Male, 58 years old. Chronic low back pain. FLUOROSCOPY TIME (if supplied): (6 seconds) minutes/seconds. 6.75 mGy. 2 images were submitted. RAD/Fluor Guidance for Spine Inj IMPRESSION: Intraoperative imaging provided for caudal block. Electronically Signed: Chicho Monsalve MD at 7:43 EDT ,
[2023-11-04 09:56] LABS: Bedside Glucose 170 mg/dL (74-106)
[2023-11-04] MEDS: Lidocaine 1% (5 ml sdv) 5 ML Vial (10:08)
[2023-11-04] MEDS: 0.9% Normal Saline (Pres. free 10 ML Vial (10:09)
--- NOTE | 2023-11-04 10:16 | OP.PCM_ITS ---
Report of Operation Date of Procedure: 11/04/23 Pre-Operative Diagnosis: Lumbosacral radiculopathy, lumbosacral degenerative di sc disease, lumbosacral spinal stenosis Post-Operative Diagnosis: Lumbosacral radiculopathy, lumbosacral degenerative disc disease, lumbosacral spinal stenosis Surgery/Procedure Performed:: Diagnostic/therapeutic caudal epidural steroid injection under fluoroscopic guidance Type of Anesthesia: MAC Estimated Blood Loss (mL): Minimal Description of Procedure: DESCRIPTION OF PROCEDURE: History and physical of today was reviewed. Risks and benefits of the procedure were explained. The patient understood and agreed to proceed. Informed consent was obtained. IV inserted per routine protocol. The patient was taken to the operating room and placed in the prone position with a pillow positioned underneath the abdomen. The lower back and tailbone area was prepped and draped in a sterile fashion using iodine x3. Under fluoroscopy guidance on a lateral view, the caudal space was identified. The skin and subcutaneous tissue was anesthetized with approximately 3 mL of 1% lidocaine using a 25-gauge regular needle. Under direct visualization with fluoroscopy, using a 22-gauge 3-1/2-inch spinal needle, the needle was advanced via the skin through the sacral hiatus. The tip of the needle was passed through the sacrococcygeal ligament and advanced to approximately S4 area. After negative aspiration of blood or CSF, a total of 3 mL of contrast was injected to confirm correct placement of the needle as well as cephalad spread. The spread was followed to approximately L5 area. After confirmation on AP as well as lateral view and repeated negative aspiration, a total of 15 mL of preservative-free 0.125% Marcaine with 80 mg of Depo-Medrol was injected easily. The needle was then removed intact. The patient experienced no sign or symptoms of intrathecal or intravascular injection. The patient experienced no paresthesia. The procedure was completed without any apparent difficulty or any complications. The patient appeared to tolerate it well. ASSESSMENT AND PLAN: This is a 58-year-old male with lumbosacral radiculopathy, lumbosacral degenerative disc disease, lumbosacral spinal stenosis status post diagnostic/therapeutic caudal epidural steroid injection, patient will continue his current medications, patient will follow up in approximately 2 weeks for reevaluation. Complications None
--- NOTE | 2023-11-04 10:18 | PCM.POST.ANE ---
Anesthesia: Postop Eval I Current Vital Signs Temperature: 98 F Pulse Rate: 72 Blood Pressure: 111/70 Respiratory Rate: 16 Pulse Ox: 98 Oxygen Delivery Method: Room Air Assessment Airway patent: Yes Spontaneous unlabored respirations: Yes Mental status: Awake and Calm nausea: No Vomiting: No Anesthesia Complication: No Fluid Hydration Crystalloid volume administer (ml): 200 Total IV fluid infused: 200 Progress Note Anesthesia document: Postop Eval 1 completed: Yes
--- NOTE | 2023-11-04 11:14 | POSTOPAN2_ITS ---
Anesthesia Postop Eval I Sum Postop Eval Completion status Anesthesia document: Postop Eval 1 completed: Yes Anesthesia Postop Eval I Summary Anesthesia Postop Eval I Summary: Anesthesia Postop Eval I: Assessment Summary Airway patent Yes 11/04/23 10:18 GRAIN BROKER.FRANCINEOBPily Spontaneous unlabored Yes 11/04/23 10:18 GRAIN BROKERNADEEN respirations Mental status Awake,Calm 11/04/23 10:18 GRAIN BROKER.GABRIEL nausea No 11/04/23 10:18 GRAIN BROKER.GABRIEL Vomiting No 11/04/23 10:18 GRAIN BROKERNADEEN Anesthesia Postop Eval I: Fluid Summary Crystalloid volume administer 200 11/04/23 10:18 GRAIN BROKER.GABRIEL (ml) Colloids volume administered ( ml) Blood Product volume administered (ml) Total IV fluid infused 200 11/04/23 10:18 GRAIN BROKERNADEEN Anesthesia Postop Eval I: Summary Notes Anesthesia Complication No 11/04/23 10:18 BETZY Anesthesia Complication Comment: Post-operative progress note Anesthesia: Postop Eval II Evaluation Mental status: Awake Pain Level: 0 nausea: No Vomiting: No
--- NOTE | 2023-11-04 11:14 | PCM.POSTANE2 ---
Anesthesia Postop Eval I Sum Postop Eval Completion status Anesthesia document: Postop Eval 1 completed: Yes Anesthesia Postop Eval I Summary Anesthesia Postop Eval I Summary: Anesthesia Postop Eval I: Assessment Summary Airway patent Yes 11/04/23 10:18 DRESS CUTTER.FRANCINEOBPily Spontaneous unlabored Yes 11/04/23 10:18 DRESS CUTTERNADEEN respirations Mental status Awake,Calm 11/04/23 10:18 DRESS CUTTER.GABRIEL nausea No 11/04/23 10:18 DRESS CUTTER.GABRIEL Vomiting No 11/04/23 10:18 DRESS CUTTERNADEEN Anesthesia Postop Eval I: Fluid Summary Crystalloid volume administer 200 11/04/23 10:18 DRESS CUTTER.GABRIEL (ml) Colloids volume administered ( ml) Blood Product volume administered (ml) Total IV fluid infused 200 11/04/23 10:18 DRESS CUTTERNADEEN Anesthesia Postop Eval I: Summary Notes Anesthesia Complication No 11/04/23 10:18 BETZY Anesthesia Complication Comment: Post-operative progress note Anesthesia: Postop Eval II Evaluation Mental status: Awake Pain Level: 0 nausea: No Vomiting: No
== END 2023-11-04 11:09 | disposition home or self-care (01) ==
LOC: SDC 08:19 → AC 08:20
PROVIDERS: PCP Family Medicine; Referring Provider Anesthesiology Pain Medicine; Visit Provider Anesthesiology Pain Medicine
PROC: 3E0S3BZ Introduction of Anesthetic Agent into Epidural Space, Percutaneous Approach (ICD-10-PCS; CPT 62282; principal; 2023-11-04 10:20)
DX: M51.17 Intervertebral disc disorders with radiculopathy, lumbosacral region (principal); M48.07 Spinal stenosis, lumbosacral region; K21.9 Gastro-esophageal reflux disease without esophagitis; F32.A Depression, unspecified; F41.9 Anxiety disorder, unspecified; I25.2 Old myocardial infarction; E03.9 Hypothyroidism, unspecified; I10 Essential (primary) hypertension; Z86.73 Personal history of transient ischemic attack (TIA), and cerebral infarction without residual deficits; Z79.899 Other long term (current) drug therapy; Z79.82 Long term (current) use of aspirin; Z79.01 Long term (current) use of anticoagulants
CPT/HCPCS: 62323; 01992; 64483; 77003; 82962; J7120; J3490

== ENCOUNTER 2023-11-13 19:10 | Inpatient (IN) | payer OTHER, SELFPAY ==
[2023-11-13] VITALS (7 sets, daily range): BP systolic 109–138; BP diastolic 56–72; PULSE 64–77; RESP 16–23; TEMP 36.2; O2SAT 97–98; BMI 48.4
--- NOTE | 2023-11-13 19:45 | ED.RN ---
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 Pt denies any new symptoms at this time.
[2023-11-13 19:54] LABS: Bedside Glucose 256 mg/dL (74-106)
--- NOTE | 2023-11-13 19:56 | EX.ED.DYSGE1 ---
HPI History of Present Illness Chief Complaint: Neuro S/Sx Informant: patient Onset/Context/Timing Onset: Today Context: Sudden Onset Timing: Intermittent Quality: Weakness Location: Left face Worsened by: Nothing Relieved by: Nothing Narrative Narrative: Patient presents with left facial droop, slurred speech, hoarse voice, and dysphagia that began today. Patient states it began approximately an hour and a half prior to arrival. The states that they were out to dinner and on the way home she noted some slurring of his speech. states that when they got home the daughter noted that he has some left facial weakness. Patient states that he did have some difficulty swallowing while he was eating dinner. Patient denies any weakness of his extremities. Patient denies any headache. Patient denies any visual changes. [facility] Medical History Mini stroke (~10/01/23) Wears glasses Depression Anxiety Cancer Thyroid disease Insulin dependent diabetes mellitus Arthritis History of renal disease Prostate disease Gastric reflux CPAP (continuous positive airway pressure) dependence Sleep apnea Shortness of breath on exertion History of echocardiogram History of stress test History of CHF (congestive heart failure) Cardiology follow-up encounter History of atrial fibrillation Double vision KIANNA treated with BiPAP Congestive heart failure (CHF) Low testosterone Carotid stenosis High cholesterol Vision loss of right eye Vision loss of left eye Anemia Non-smoker Atrial fibrillation Hypertension Obesity History of non-ST elevation myocardial infarction (NSTEMI) (03/28/20) TIA (transient ischemic attack) (2019) Hodgkin disease GERD (gastroesophageal reflux disease) BPH (benign prostatic hyperplasia) Hypothyroidism Essential (primary) hypertension Anxiety and depression Morbid obesity with BMI of 45.0-49.9, adult Nephrolithiasis Hyperlipidemia Diabetes mellitus, type II Home Medications ?Medication ?Instructions ?Recorded ?Last Taken ?Type levothyroxine 125 mcg tablet 125 mcg PO DAILY thyroid 05/03/15 11/03/23 History pantoprazole 40 mg tablet,delayed 40 mg PO DAILY acid reflux 05/03/15 11/04/23 History release (Protonix) tamsulosin 0.4 mg capsule 0.4 mg PO DAILY prostate 09/08/15 11/03/23 History buspirone 10 mg tablet 10 mg PO TID PRN PRN Anxiety 04/17/18 11/04/23 History duloxetine 60 mg capsule,delayed 60 mg PO DAILY depression 04/17/18 11/04/23 History release (Cymbalta) aspirin 81 mg chewable tablet 81 mg PO DAILY@0800 03/30/20 11/01/23 Rx 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 meter,continuous #1 ea 07/26/20 Unknown Rx (Dexcom G6 [facility]) pen needle, diabetic 31 gauge x #1,200 ea 12/22/20 Unknown History 08/14 pen needle, diabetic 32 gauge x #150 ea 06/01/21 Unknown Rx (BD Ultra-Fine Kiki Pen Needle) atorvastatin 80 mg tablet (Lipitor) 80 mg PO QHS cholesterol 09/04/21 11/03/23 History 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 transmitter (Dexcom #1 ea 12/29/21 Unknown Rx G6 Transmitter device) infusion set for insulin pump 10/08/22 Unknown History insulin pump controller 10/08/22 Unknown History metoprolol succinate 100 mg 100 mg PO DAILY #90 tabs 01/15/23 11/04/23 Rx tablet,extended release 24 hr hydrocodone-acetaminophen 5-325mg 1 tab PO BID 02/14/23 Unknown History 5mg-325mg 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 sensor (Dexcom G6 #1 ea 02/25/23 Unknown Rx Sensor device) furosemide 40 mg tablet (Lasix) 40 mg PO BID diuretic #180 tabs 04/25/23 11/03/23 Rx amlodipine 5 mg tablet 5 mg PO DAILY #30 tabs 05/02/23 11/03/23 Rx glimepiride 4 mg tablet 4 mg PO DAILY #90 tabs 06/06/23 11/03/23 Rx apixaban 5 mg tablet (Eliquis) 5 mg PO BID #180 tabs 07/21/23 11/01/23 Rx fenofibrate 54 mg tablet 54 mg PO DAILY #30 tabs 10/14/23 Unknown Rx insulin regular hum U-500 conc 500 75 unit (0.15 mL) continuous 11/11/23 Unknown Rx unit/mL subcutaneous soln (Humulin subcutaneous infusion DAILY #20 mL R U-500 (Concentrated) Insulin) lisinopril 20 mg tablet 40 mg PO DAILY 11/13/23 Unknown History spironolactone 50 mg tablet 50 mg PO DAILY 11/13/23 Unknown History Allergy/AdvReac Type Severity Reaction Status Date / Time metoclopramide HCl (From Allergy Severe Anaphylaxis Verified 08/14/24 19:12 Reglan) Family History Brother Heart disease Mother CVA (cerebral vascular accident) Hypertension Rheumatoid arthritis Father Diabetes Other Alcohol abuse ulcer disease Surgical History History of cardiac catheterization History of lymph node excision History of left heart catheterization (2009) Hx of nephrolithotomy with removal of calculi History of thoracentesis (2015) Social History household members: spouse and none Smoking Status: Never smoker Electronic Cigarette Use: not used second hand exposure: No alcohol intake: never substance use type: does not use what type of physical activity do you participate in: none ROS ROS ED Constitutional Constitutional ED: Denies chills or fever(s) Eyes Eyes: Denies blurry vision or change in vision ENT ENT ED: Denies rhinorrhea or sore throat Cardiovascular Cardiovascular: Denies chest pain or palpitations Respiratory/Chest Respiratory/Chest: Denies cough or dyspnea Gastrointestinal Gastrointestinal: Denies nausea or vomiting Genitourinary Genitourinary ED: Denies dysuria or hematuria Musculoskeletal Musculoskeletal: Reports back pain and neck pain Integumentary Denies abscess or rash Neurologic Neurologic: Denies headache(s) or weakness Allergic/Immunologic Allergic/Immunologic ED: Denies mouth swelling or urticaria EXAM Physical Exam Const Vital Signs: 11/13/23 19:12 11/13/23 19:27 11/13/23 19:43 Temperature 97.2 F L Temperature Source Temporal Pulse Rate 77 73 73 Respiratory Rate 18 23 H 19 H Blood Pressure 122/65 H 114/56 L 109/62 Blood Pressure Mean 84 75 77 Pulse Ox 97 98 97 Oxygen Delivery Method Room Air Room Air Room Air 11/13/23 20:27 11/13/23 21:00 11/13/23 22:00 Temperature Temperature Source Pulse Rate 68 67 66 Respiratory Rate 16 18 18 Blood Pressure 110/56 L 118/57 L 124/59 H Blood Pressure Mean 74 77 80 Pulse Ox 98 97 97 Oxygen Delivery Method Room Air Room Air Room Air Positive well nourished and well developed General Appearance ED: well developed and NAD HEENT Reports moist mucous membranes Neck supple and no JVD Resp normal respiratory effort and clear to auscultation bilaterally Cardio regular rate and regular rhythm GI non-tender and non-distended Palpation: soft Extremity normal to inspection General Extremety ED: Negative for edema or tenderness General Extremity: Negative for edema Neuro oriented x3, CN's II-XII intact bilaterally and no sensory deficits noted Sensorium / Orientation: alert Motor Exam: strength 5/5 throughout Psych mental status grossly normal MDM MDM MDM Narrative Medical decision making narrative: Differential diagnosis includes TIA, dysphagia, electrolyte abnormality, stroke, intracranial bleeding, coagulopathy, cardiac dysrhythmia, cardiac ischemia, pneumonia, and pneumothorax. EKG will be obtained to assess for cardiac dysrhythmia and cardiac ischemia. CTA of the head and neck will be obtained to assess for stroke and large vessel occlusion. Chest x-ray will be obtained to assess for pneumonia and pneumothorax. CBC will be obtained to assess for leukocytosis and anemia. Basic metabolic profile will be obtained to assess for electrolyte abnormality and renal function. PT with INR and PTT will be obtained to assess for coagulopathy. High-sensitivity troponin will be obtained to assess for cardiac ischemia. Lab Data Attestation: I reviewed the patient's lab results. Lab results narrative: CBC was reviewed. There is a mild leukocytosis of 12.0. There is a mild anemia with a hemoglobin of 11.0 and hematocrit 36.4. Platelets are normal. PT with INR and PTT were reviewed. Pro time was 14.8 and INR is 1.2. PTT was normal at 27.8. Basic metabolic profile was reviewed. BUN was 34 and creatinine was slightly elevated at 1.56. This is consistent with previous results. Glucose was 258. High-sensitivity troponin was reviewed and was normal at 13. BGT was reviewed and was slightly elevated at 256. Labs: Laboratory Results - last 24 hr 11/13/23 11/13/23 11/13/23 19:31 19:43 20:55 WBC 12.0 H RBC 4.68 Hgb 11.0 L Hct 36.4 L MCV 77.8 L MCH 23.5 L MCHC 30.2 L RDW Std Deviation 52.2 H RDW Coeff of Gavi 18.7 H Plt Count 239 MPV 10.8 Immature Gran % (Auto) 2.200 H Neut % (Auto) 65.6 Lymph % (Auto) 19.0 Orange % (Auto) 9.7 Eos % (Auto) 2.6 Baso % (Auto) 0.9 Absolute Neuts (auto) 7.9 H Absolute Lymphs (auto) 2.28 Nucleated RBC % 0 Differential Comment SCANNED PT Cancelled 14.8 INR Cancelled 1.2 APTT Cancelled 27.8 Sodium 133 L Potassium 4.9 Chloride 103 Carbon Dioxide 22.0 Anion Gap 8 BUN 34 H Creatinine 1.56 H Estim Creat Clear Calc 72.64 Est GFR (MDRD) Af Amer 59 L Est GFR (MDRD) Non-Af 49 L BUN/Creatinine Ratio 21.8 H Glucose 258 H Calcium 8.6 Troponin I High Sens 13 POC Glucose 256 H Radiography Diagnostic Testing: Clinical Impression(s) from Imaging Studies Head/Neck CTA 11/13/23 20:16 IMPRESSION: 1. 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 2. Reconstitution of the proximal V4 intradural segment of the left vertebral artery with additional near occlusion distal to the posterior inferior cerebellar artery origin. 3. Near occlusion of the basilar artery terminus. 4. Near occlusion of the proximal M1 segment of the right middle cerebral artery. 5. Interstitial thickening in the lung apices is nonspecific. Consider chronic changes and/or edema. 6. Diffuse atherosclerosis of the left common carotid artery with associated plaque ulceration measuring up to approximately 5 mm and no greater than 50% stenosis. Atherosclerosis extending through the left carotid bifurcation and carotid bulb with approximately 50% stenosis of the left internal carotid artery by NASCET criteria. 7. Multiple thyroid nodules, the largest measuring up to approximately 1.5 cm. ACR White Paper guidelines (Crouch JK, et al. JACR 2015;12(2):143-50) suggest further evaluation with thyroid ultrasound. Note: Insofar seen, the arterial disease appears similar to the prior examination. Electronically Signed: Stevie Garcia DO at 21:59 EDT , ADDENDUM: 11/13/23 0225 IMPRESSION: 1. 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 2. Reconstitution of the proximal V4 intradural segment of the left vertebral artery with additional near occlusion distal to the posterior inferior cerebellar artery origin. 3. Near occlusion of the basilar artery terminus. 4. Near occlusion of the proximal M1 segment of the right middle cerebral artery. 5. Interstitial thickening in the lung apices is nonspecific. Consider chronic changes and/or edema. 6. Diffuse atherosclerosis of the left common carotid artery with associated plaque ulceration measuring up to approximately 5 mm and no greater than 50% stenosis. Atherosclerosis extending through the left carotid bifurcation and carotid bulb with approximately 50% stenosis of the left internal carotid artery by NASCET criteria. 7. Multiple thyroid nodules, the largest measuring up to approximately 1.5 cm. ACR White Paper guidelines (Miko JK, et al. JACR 2015;12(2):143-50) suggest further evaluation with thyroid ultrasound. Note: Insofar seen, the arterial disease appears similar to the prior examination. N.B. : The above Results were Read Back by Stevie Garcia DO to Ochoa Mascorro DO, and understanding confirmed on 11/13/2023 22:02:59 (ET). Electronically Signed: Stevie Garcia DO at 21:59 EDT , Chest X-Ray 11/13/23 21:15 IMPRESSION: Diffuse patchy bilateral pulmonary opacities may be secondary to pulmonary edema and/or multifocal pneumonia or perhaps chronic interstitial changes, similar to prior examination. Electronically Signed: Stevie Garcia DO at 21:47 EDT , CTA of the head and neck was obtained. There is occlusion of the proximal left vertebral artery. There is reconstitution of the proximal V4 intradural segment of the left vertebral artery. There is near occlusion of the proximal M1 segment of the right middle cerebral artery. There is diffuse atherosclerosis of the left common carotid artery and plaque ulceration measuring up to 5 mm. Stenosis is less than 50%. This appears similar to the prior examination however, radiologist reported that he was unable to see all of the images from previous CTA in September. This was interpreted by the radiologist and was also independently reviewed by myself. PA and lateral chest was obtained. There are 2 views. On my independent interpretation, there are patchy pulmonary opacities which could be secondary to pulmonary edema, pneumonia, or chronic changes. These are similar to prior examination dated 11/07/2022. There is no cardiomegaly noted. Bony thorax is normal. Radiologist also interpreted the x-rays and agrees. EKG Initial EKG: Attestation: I personally reviewed and interpreted this EKG as follows: Interpretation: Sinus Rhythm (67) and Non-Specific ST Changes Comments: EKG was obtained. On my independent interpretation, it showed a normal sinus rhythm with a rate of 67. VT interval, QRS interval, and QTc intervals were all normal. [place] was normal. There is left ventricular hypertrophy noted. There are nonspecific ST-T wave changes. Prior EKG tracings: available for review Prior: Unchanged (10/04/2023) Management Discussion w/another healthcare provider: Hospitalist and Radiologist Treatment and Re-Evaluation :: Patient remained asymptomatic here in the emergency department. Patient states all of his symptoms have resolved. Patient was advised of his findings. Patient was advised that this could be a TIA given his vascular stenosis. Case was discussed with the hospitalist. He will admit the patient for observation to PCU. Patient and family understood and were agreeable with the plan. All questions were answered. Discharge Plan Triage Chief Complaint: Neuro S/Sx ED Provider: Ochoa Mascorro Dx/Rx/DC Orders Clinical Impression: TIA (transient ischemic attack), Essential (primary) hypertension, Carotid stenosis, Diabetes Prescriptions: No Action (DME) Dexcom G6 [facility] Misc See Rx Instructions .ROUTE .MEDSUPPLY Qty: 1 0RF Rx Instructions: As directed (DME) pen needle, diabetic 31 gauge x 5/16 needle See Rx Instructions .ROUTE .MEDSUPPLY Qty: 1200 Patient Comments: use 1 PEN NEEDLE to inject MEDICATION subcutaneously as directed Rx Instructions: As directed (DME) pen needle, diabetic [BD Ultra-Fine Kiki Pen Needle] 32 gauge x 5/32 needle See Rx Instructions .ROUTE .MEDSUPPLY Qty: 150 6RF Rx Instructions: As directed (DME) infusion set for insulin pump Infusion Set See Rx Instructions .Route Rx Instructions: As directed (DME) insulin pump controller Misc See Rx Instructions .Route Rx Instructions: As directed fenofibrate 54 mg tablet 54 mg PO DAILY Qty: 30 5RF pantoprazole [Protonix] 40 MG tablet 40 mg PO DAILY levothyroxine 125 MCG tablet 125 mcg PO DAILY tamsulosin 0.4 MG capsule 0.4 mg PO DAILY buspirone 10 MG tablet 10 mg PO TID PRN PRN (Reason: Anxiety) Patient Comments: TAKE ONE TABLET BY MOUTH THREE TIMES DAILY Rx Instructions: pt states he usually takes 1 daily duloxetine [Cymbalta] 60 MG capsule,delayed release(DR/EC) 60 mg PO DAILY Patient Comments: TAKE ONE CAPSULE BY MOUTH DAILY aspirin 81 MG tablet,chewable 81 mg PO DAILY@0800 0RF atorvastatin [Lipitor] 80 MG tablet 80 mg PO QHS Rx Instructions: cholesterol hydrocodone-acetaminophen 5-325 mg tablet 1 tab PO BID lisinopril 20 mg tablet 40 mg PO DAILY spironolactone 50 mg tablet 50 mg PO DAILY (DME) Dexcom G6 Transmitter Device See Rx Instructions .ROUTE .MEDSUPPLY Qty: 1 3RF Rx Instructions: As directed metoprolol succinate 100 mg tablet extended release 24 hr 100 mg PO DAILY Qty: 90 3RF (DME) Dexcom G6 Sensor Device See Rx Instructions .ROUTE .MEDSUPPLY Qty: 1 6RF Rx Instructions: As directed furosemide [Lasix] 40 mg tablet 40 mg PO BID Qty: 180 3RF amlodipine 5 mg tablet 5 mg PO DAILY Qty: 30 11RF glimepiride 4 mg tablet 4 mg PO DAILY Qty: 90 1RF Eliquis 5 mg tablet 5 mg PO BID Qty: 180 3RF Humulin R U-500 (Conc) Insulin 500 unit/mL solution 75 unit continuous subcutaneous infusion DAILY Qty: 20 5RF Patient Comments: INSULIN PUMP Primary Care Provider: Radha Khan Referrals: Radha Khan MD [Primary Care Provider] - Print Language: Slovak Disposition Disposition: Acute Care Hospital [facility]
--- NOTE | 2023-11-13 20:16 | CT_ITS ---
We are attempting to reach an attending provider to discuss findings. An addendum with communication details will be sent when the communication is complete. EXAM: CT ANGIOGRAPHY HEAD AND NECK WITHOUT AND WITH INTRAVENOUS CONTRAST CLINICAL INDICATION: TIA TECHNIQUE: [place]/head and neck CT angiography protocol performed without and with intravenous contrast. This CT exam was performed using one or more of the following dose reduction techniques: automated exposure control, adjustment of the mA and/or kV according to patient size, and/or use of iterative reconstruction technique. MIP reconstructed images were created and reviewed. CONTRAST: IV 100mL [id number] COMPARISON: CTA head and neck, 10/02/2023. (All images are not archived and reviewable). FINDINGS: LIMITATIONS: The examination is limited due to motion. HEAD: RIGHT ANTERIOR CEREBRAL ARTERY: No significant abnormality. No occlusion or significant stenosis. Anterior communicating artery is present. No aneurysm. RIGHT MIDDLE CEREBRAL ARTERY: Near occlusion of the proximal M1 segment of the right middle cerebral artery. No aneurysm. RIGHT POSTERIOR CEREBRAL ARTERY: Small right posterior communicating artery. No occlusion or significant stenosis. No aneurysm. RIGHT INTRACRANIAL INTERNAL CAROTID ARTERY: Arteriosclerosis of the cavernous and supracavernous right internal carotid artery. No significant stenosis. No dissection or occlusion. RIGHT INTRACRANIAL VERTEBRAL ARTERY: No significant abnormality. No significant stenosis. No dissection or occlusion. LEFT ANTERIOR CEREBRAL ARTERY: No significant abnormality. No occlusion or significant stenosis. No aneurysm. LEFT MIDDLE CEREBRAL ARTERY: No significant abnormality. No occlusion or significant stenosis. No aneurysm. LEFT POSTERIOR CEREBRAL ARTERY: Small left posterior communicating artery. No occlusion or significant stenosis. No aneurysm. LEFT INTRACRANIAL INTERNAL CAROTID ARTERY: Arteriosclerosis of the cavernous and supracavernous left internal carotid artery. No significant stenosis. No dissection or occlusion. LEFT INTRACRANIAL VERTEBRAL ARTERY: Reconstitution of the proximal V4 intradural segment of the left vertebral artery with additional near occlusion distal to the posterior inferior cerebellar artery origin. BASILAR ARTERY: Near occlusion of the basilar artery terminus. No aneurysm. OTHER VASCULATURE: No vascular malformation. BRAIN AND EXTRA-AXIAL SPACES: No significant abnormality. No intra- or extra-axial hemorrhage. No evidence of acute infarct. No intracranial mass or mass effect. There is preservation of the carvalho/white matter interface. Posterior fossa structures are unremarkable. Ventricles are appropriate for age. No hydrocephalus. Basal cisterns are patent. SINUSES: Normal as visualized. Clear. MASTOID AIR CELLS: Normal as visualized. Clear. ORBITS: Visualized globes, extraocular muscles, optic nerves and retrobulbar fat appear unremarkable. NECK: RIGHT COMMON CAROTID ARTERY: Diffuse atherosclerosis of the right common carotid artery. No significant stenosis. No dissection or occlusion. RIGHT EXTRACRANIAL INTERNAL CAROTID ARTERY: Atherosclerosis of the right carotid bifurcation and carotid bulb with less than 50% stenosis of the right internal carotid artery by NASCET criteria. No dissection or occlusion. RIGHT EXTERNAL CAROTID ARTERY: Moderate to severe stenosis of the proximal right external carotid artery. RIGHT EXTRACRANIAL VERTEBRAL ARTERY: No significant abnormality. No significant stenosis. No dissection or occlusion. LEFT COMMON CAROTID ARTERY: Diffuse atherosclerosis of the left common carotid artery with associated plaque ulceration measuring up to approximately 5 mm and no greater than 50% stenosis. No dissection or occlusion. LEFT EXTRACRANIAL INTERNAL CAROTID ARTERY: Atherosclerosis extending through the left carotid bifurcation and carotid bulb with approximately 50% stenosis of the left internal carotid artery by NASCET criteria. LEFT EXTERNAL CAROTID ARTERY: Moderate to severe stenosis of the proximal left external carotid artery. LEFT EXTRACRANIAL VERTEBRAL ARTERY: Occlusion of the proximal extracranial left vertebral artery with nonenhancement throughout the cervical segments. THYROID: Multiple thyroid nodules, the largest measuring up to approximately 1.5 cm. BRACHIOCEPHALIC AND SUBCLAVIAN ARTERIES: Atherosclerosis of the brachiocephalic and bilateral subclavian arteries without critical stenosis. AORTA: Atherosclerosis of the aorta without evidence of a dissection or aneurysm. LUNG APICES: Interstitial thickening in the lung apices is nonspecific. Consider chronic changes and/or edema. HEAD and NECK: BONES/JOINTS: No significant abnormality. No discrete lytic or blastic abnormalities. SOFT TISSUES: No significant abnormality. CAROTID STENOSIS REFERENCE USING NASCET CRITERIA: % ICA stenosis = (1 - narrowest ICA diameter/diameter of distal cervical ICA) x 100. Mild - <50% stenosis. Moderate - 50-69% stenosis. Severe - 70-94% stenosis. Near occlusion - 95-99% stenosis. Occluded - 100% stenosis. CT/CTA Head AND Neck W/ Contrast IMPRESSION: 1. 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 2. Reconstitution of the proximal V4 intradural segment of the left vertebral artery with additional near occlusion distal to the posterior inferior cerebellar artery origin. 3. Near occlusion of the basilar artery terminus. 4. Near occlusion of the proximal M1 segment of the right middle cerebral artery. 5. Interstitial thickening in the lung apices is nonspecific. Consider chronic changes and/or edema. 6. Diffuse atherosclerosis of the left common carotid artery with associated plaque ulceration measuring up to approximately 5 mm and no greater than 50% stenosis. Atherosclerosis extending through the left carotid bifurcation and carotid bulb with approximately 50% stenosis of the left internal carotid artery by NASCET criteria. 7. Multiple thyroid nodules, the largest measuring up to approximately 1.5 cm. ACR White Paper guidelines (Crouch JK, et al. JACR 2015;12(2):143-50) suggest further evaluation with thyroid ultrasound. Note: Insofar seen, the arterial disease appears similar to the prior examination. Electronically Signed: Stevie Garcia DO at 21:59 EDT ,
[2023-11-13 20:54] LABS: Absolute Lymphocyte Count 2.28 X10^3/uL (0.83-4.51); Absolute Neutrophil Count 7.9 X10^3/uL (2.0-7.7); Basophil# 0.11 X10^3/uL; Basophil% 0.9 % (0-1); Eosinophil# 0.31 X10^3/uL; Eosinophils% 2.6 % (0-5); Hematocrit 36.4 % (40-54); Lymphocyte # 2.28 X10^3/ul (0.83-4.51); Mean Corp Hgb Conc 30.2 g/dL (32-36); Mean Corpuscular Hgb 23.5 pg (27.0-32.0); Mean Corpuscular Volume 77.8 fL (80-94); Mean Platelet Vol. 10.8 fl (6.2-12.0); Monocyte# 1.16 X10^3/uL; Monocyte% 9.7 % (0-10); NRBC Flagged by Analyzer 0 % (0-5); Neutrophil # 7.85 X10^3/uL (2.7-7.7); Neutrophil % 65.6 % (47-70); POSITIVE COUNT YES; Platelet Count 239 K/mm3 (150-450); RBC Distribution Width CV 18.7 % (11.6-14.6); RBC Distribution Width SD 52.2 fl (35.1-43.9); Red Blood Count 4.68 M/mm3 (4.6-6.2)
[2023-11-13 20:55] LABS: Anion Gap 8 (5-15); BUN 34 mg/dL (7-18); BUN/Creat Ratio 21.8 RATIO (10-20); Calcium,Total 8.6 mg/dL (8.5-10.1); Chloride 103 mmol/L (98-107); Creatinine, Serum 1.56 mg/dL (0.70-1.30); Differential Indicated SCAN CRITERIA MET; EST Glomerular Filtration Rate 49 mL/min (>60); Est Glom Filt Rate - Afr Amer 59 mL/min (>60); Estimated Creatinine Clearance 72.64 ml/min; Glucose 258 mg/dL (74-106); Potassium 4.9 mmol/L (3.5-5.1); Sodium Level 133 mmol/L (136-145); Troponin-I HS 13 pg/mL (3.0-78.0)
--- NOTE | 2023-11-13 21:15 | RAD_ITS ---
EXAM: XR CHEST, 2 VIEWS CLINICAL INDICATION: Dysphagia TECHNIQUE: Frontal and lateral views of the chest. COMPARISON: 11/07/2022 FINDINGS: LUNGS AND PLEURAL SPACES: Diffuse patchy bilateral pulmonary opacities may be secondary to pulmonary edema and/or multifocal pneumonia or perhaps chronic interstitial changes, similar to prior examination. No pneumothorax. No effusion. HEART: No significant abnormality. Cardiac silhouette not enlarged. MEDIASTINUM: Central airways and mediastinal contour are unremarkable. BONES/JOINTS: Degenerative changes in the spine. No acute fracture. SOFT TISSUES: No significant abnormality. VASCULATURE: Atherosclerosis. RAD/Chest PA and Lateral IMPRESSION: Diffuse patchy bilateral pulmonary opacities may be secondary to pulmonary edema and/or multifocal pneumonia or perhaps chronic interstitial changes, similar to prior examination. Electronically Signed: Stevie Garcia DO at 21:47 EDT ,
[2023-11-13 21:17] LABS: International Normalized Ratio 1.2; Partial Thromboplast Time 27.8 Seconds (24.1-36.2); Prothrombin Time (Protime)PT. 14.8 SECONDS (11.7-14.9)
[2023-11-13 21:21] LABS: Differential Comment SCANNED
[2023-11-13] MEDS: Acetaminophen 500 MG Tablet 1000 MG PO (22:13)
--- NOTE | 2023-11-13 23:37 | PCM.HP.STD ---
[facility] - General General Date of Admission: 11/14/23 Date of Service: 11/13/23 Chief Complaint: Transient Left Facial Weakness, Slurred Speech and Hoarse Voice. HPI Narrative KRUNAL LEOS, is a 58 M with a past medical history of essential hypertension, hyperlipidemia, hypothyroidism, morbid obesity; with BMI of 48.5 this admission, KIANNA; on nocturnal BiPAP, history of CVA (09/2023); with residual Left-sided weakness already on BASA and statin daily, history of LCC artery stenosis (~70%); followed by Dr. Dobbs of vascular surgery, CAD; s/p NSTEMI (2019), history of TIA (2018), history of atrial fibrillation; on Eliquis, history of CHF, DM-2; of unknown control, history of Hodgkin's Lymphoma; currently in remission, chronic anemia, history of nephrolithotomy, BPH, depression, GERD and OA who presents to [facility] ER complaining of transient Left facial weakness, slurred speech and hoarse voice. Mr. Leos reports his symptoms began approximately 90 minutes prior to arrival while he was out to dinner with his when they were on their way home they noted some slurring of his speech after he had noticed some difficulty swallowing while he was eating dinner. When they arrived home his daughter thought she noted Left facial weakness and then they decided to come in for further evaluation and treatment. He admit to mild Right frontal headache but he denies weakness in his extremities or visual changes and he states he is now back to his baseline level of function. In the ER he was noted to have a Head CT that was negative for acute pathologic changes that would explain his symptoms with subsequent diagnosis of TIA; with transient Left facial weakness and slurred speech and he was then admitted to the PCU under observation status for a neurologic workup for a stay that is expected to be less than 2 midnights. [facility] Medical History Mini stroke (~10/01/23) Wears glasses Depression Anxiety Cancer Thyroid disease Insulin dependent diabetes mellitus Arthritis History of renal disease Prostate disease Gastric reflux CPAP (continuous positive airway pressure) dependence Sleep apnea Shortness of breath on exertion History of echocardiogram History of stress test History of CHF (congestive heart failure) Cardiology follow-up encounter History of atrial fibrillation Double vision KIANNA treated with BiPAP Congestive heart failure (CHF) Low testosterone Carotid stenosis High cholesterol Vision loss of right eye Vision loss of left eye Anemia Non-smoker Atrial fibrillation Hypertension Obesity History of non-ST elevation myocardial infarction (NSTEMI) (03/28/20) TIA (transient ischemic attack) (2018) Hodgkin disease GERD (gastroesophageal reflux disease) BPH (benign prostatic hyperplasia) Hypothyroidism Essential (primary) hypertension Anxiety and depression Morbid obesity with BMI of 45.0-49.9, adult Nephrolithiasis Hyperlipidemia Diabetes mellitus, type II Home Medications ?Medication ?Instructions ?Recorded ?Last Taken ?Type levothyroxine 125 mcg tablet 125 mcg PO DAILY thyroid 05/03/15 11/03/23 History pantoprazole 40 mg tablet,delayed 40 mg PO DAILY acid reflux 05/03/15 11/04/23 History release (Protonix) tamsulosin 0.4 mg capsule 0.4 mg PO DAILY prostate 09/08/15 11/03/23 History buspirone 10 mg tablet 10 mg PO TID PRN PRN Anxiety 04/17/18 11/04/23 History duloxetine 60 mg capsule,delayed 60 mg PO DAILY depression 04/17/18 11/04/23 History release (Cymbalta) aspirin 81 mg chewable tablet 81 mg PO DAILY@0800 03/30/20 11/01/23 Rx 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 meter,continuous #1 ea 07/26/20 Unknown Rx (Dexcom G6 Welding Pantograph Operator) pen needle, diabetic 31 gauge x #1,200 ea 12/22/20 Unknown History 08/14 pen needle, diabetic 32 gauge x #150 ea 06/01/21 Unknown Rx (BD Ultra-Fine Kiki Pen Needle) atorvastatin 80 mg tablet (Lipitor) 80 mg PO QHS cholesterol 09/04/21 11/03/23 History 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 transmitter (Dexcom #1 ea 12/29/21 Unknown Rx G6 Transmitter device) infusion set for insulin pump 10/08/22 Unknown History insulin pump controller 10/08/22 Unknown History metoprolol succinate 100 mg 100 mg PO DAILY #90 tabs 01/15/23 11/04/23 Rx tablet,extended release 24 hr hydrocodone-acetaminophen 5-325mg 1 tab PO BID 02/14/23 Unknown History 5mg-325mg 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 sensor (Dexcom G6 #1 ea 02/25/23 Unknown Rx Sensor device) furosemide 40 mg tablet (Lasix) 40 mg PO BID diuretic #180 tabs 04/25/23 11/03/23 Rx amlodipine 5 mg tablet 5 mg PO DAILY #30 tabs 05/02/23 11/03/23 Rx glimepiride 4 mg tablet 4 mg PO DAILY #90 tabs 06/06/23 11/03/23 Rx apixaban 5 mg tablet (Eliquis) 5 mg PO BID #180 tabs 07/21/23 11/01/23 Rx fenofibrate 54 mg tablet 54 mg PO DAILY #30 tabs 10/14/23 Unknown Rx insulin regular hum U-500 conc 500 75 unit (0.15 mL) continuous 11/11/23 Unknown Rx unit/mL subcutaneous soln (Humulin subcutaneous infusion DAILY #20 mL R U-500 (Concentrated) Insulin) lisinopril 20 mg tablet 40 mg PO DAILY 11/13/23 Unknown History spironolactone 50 mg tablet 50 mg PO DAILY 11/13/23 Unknown History Allergy/AdvReac Type Severity Reaction Status Date / Time metoclopramide HCl (From Allergy Severe Anaphylaxis Verified 11/13/23 19:12 Reglan) Family History Brother Heart disease Mother CVA (cerebral vascular accident) Hypertension Rheumatoid arthritis Father Diabetes Other Alcohol abuse ulcer disease Surgical History History of cardiac catheterization History of lymph node excision History of left heart catheterization (2009) Hx of nephrolithotomy with removal of calculi History of thoracentesis (2015) Social History household members: spouse and none Smoking Status: Never smoker Electronic Cigarette Use: not used second hand exposure: No alcohol intake: never substance use type: does not use what type of physical activity do you participate in: none ROS ROS Narrative Review of systems: General: Patient denies fever or chills. HENT: Patient admits to mild Right frontal headache but he denies stuffy nose, denies sore throat EYES: Denies changes in vision or discharge from eyes. Resp: Denies cough, denies shortness of breath Cardiac: Denies chest pain, palpitations or heart racing. GI: Denies abdominal pain, denies changes in bowel, denies nausea or vomiting : Denies changes in urination Extremity: Denies swelling Musculoskeletal: Patient admits to back pain and neck pain. Neuro: Patient admits to mild Right frontal headache and transient Left facial weakness, slurred speech and hoarse voice that have now resolved. He denies other focal neurologic weakness as per HPI. Heme: Denies any bleeding or bruising Skin: Denies rashes Psychiatric: No complaints voiced related to uncontrolled depression or anxiety. Endocrine: No polyuria, polydipsia or polyphagia. The rest of the 14 point ROS was negative except for positives in HPI. Vital Signs Vital Signs Vital Signs: 11/13/23 19:12 11/13/23 19:27 11/13/23 19:43 Temperature 97.2 F L Temperature Source Temporal Pulse Rate 77 73 73 Respiratory Rate 18 23 H 19 H Blood Pressure 122/65 H 114/56 L 109/62 Blood Pressure Mean 84 75 77 Pulse Ox 97 98 97 Oxygen Delivery Method Room Air Room Air Room Air 11/13/23 20:27 11/13/23 21:00 11/13/23 22:00 Temperature Temperature Source Pulse Rate 68 67 66 Respiratory Rate 16 18 18 Blood Pressure 110/56 L 118/57 L 124/59 H Blood Pressure Mean 74 77 80 Pulse Ox 98 97 97 Oxygen Delivery Method Room Air Room Air Room Air Weight Weight: 328 lb 4.293 oz Body Mass Index (BMI) 48.4 Physical Exam Const alert, oriented x3 and no apparent distress Constitutional Narrative: Patient is morbidly obese. General Appearance: cooperative HEENT normocephalic, head/scalp atraumatic, hearing grossly normal bilaterally and moist oral mucous membranes Eyes PERRL and EOMs intact bilaterally Neck no lymphadenopathy and supple Resp normal respiratory effort, no retractions, no use of accessory muscles and clear to auscultation bilaterally Cardio regular rate and regular rhythm GI normal to inspection, nondistended, normoactive bowel sounds, soft to palpation, non-tender and non-distended GI Narrative: Morbidly obese. Extremity normal to inspection and full ROM Skin Skin Narrative: Patient has no evidence of rash, abscess or jaundice. Neuro oriented x3, CN's II-XII intact bilaterally, moves all extremities and no focal motor deficits Sensorium / Orientation: awake, alert, oriented to person, oriented to place and oriented to time Speech: speech normal Psych affect normal Results Medical Records Data Attestation: I reviewed the patient's medical records Lab / Micro Data Attestation: I reviewed the patient's lab results. 11/13/23 19:43 11/13/23 19:43 Labs: Laboratory Results - last 24 hr 11/13/23 19:31: POC Glucose 256 H 11/13/23 19:43: WBC 12.0 H, RBC 4.68, Hgb 11.0 L, Hct 36.4 L, MCV 77.8 L, MCH 23.5 L, MCHC 30.2 L, RDW Std Deviation 52.2 H, RDW Coeff of Gavi 18.7 H, Plt Count 239, MPV 10.8, Immature Gran % (Auto) 2.200 H, Neut % (Auto) 65.6, Lymph % (Auto) 19.0, [place] % (Auto) 9.7, Eos % (Auto) 2.6, Baso % (Auto) 0.9, Absolute Neuts (auto) 7.9 H, Absolute Lymphs (auto) 2.28, Nucleated RBC % 0, Differential Comment SCANNED, PT Cancelled, INR Cancelled, APTT Cancelled, Sodium 133 L, Potassium 4.9, Chloride 103, Carbon Dioxide 22.0, Anion Gap 8, BUN 34 H, Creatinine 1.56 H, Estim Creat Clear Calc 72.64, Est GFR (MDRD) Af Amer 59 L, Est GFR (MDRD) Non-Af 49 L, BUN/Creatinine Ratio 21.8 H, Glucose 258 H, Calcium 8.6, Troponin I High Sens 13 11/13/23 20:55: PT 14.8, INR 1.2, APTT 27.8 Imaging Radiology Impression Head/Neck CTA 11/13/23 20:16 IMPRESSION: 1. 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 2. Reconstitution of the proximal V4 intradural segment of the left vertebral artery with additional near occlusion distal to the posterior inferior cerebellar artery origin. 3. Near occlusion of the basilar artery terminus. 4. Near occlusion of the proximal M1 segment of the right middle cerebral artery. 5. Interstitial thickening in the lung apices is nonspecific. Consider chronic changes and/or edema. 6. Diffuse atherosclerosis of the left common carotid artery with associated plaque ulceration measuring up to approximately 5 mm and no greater than 50% stenosis. Atherosclerosis extending through the left carotid bifurcation and carotid bulb with approximately 50% stenosis of the left internal carotid artery by NASCET criteria. 7. Multiple thyroid nodules, the largest measuring up to approximately 1.5 cm. ACR White Paper guidelines (Crouch JK, et al. JACR 2015;12(2):143-50) suggest further evaluation with thyroid ultrasound. Note: Insofar seen, the arterial disease appears similar to the prior examination. Electronically Signed: Stevie Garcia DO at 21:59 EDT , ADDENDUM: 11/13/232208 IMPRESSION: 1. 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 2. Reconstitution of the proximal V4 intradural segment of the left vertebral artery with additional near occlusion distal to the posterior inferior cerebellar artery origin. 3. Near occlusion of the basilar artery terminus. 4. Near occlusion of the proximal M1 segment of the right middle cerebral artery. 5. Interstitial thickening in the lung apices is nonspecific. Consider chronic changes and/or edema. 6. Diffuse atherosclerosis of the left common carotid artery with associated plaque ulceration measuring up to approximately 5 mm and no greater than 50% stenosis. Atherosclerosis extending through the left carotid bifurcation and carotid bulb with approximately 50% stenosis of the left internal carotid artery by NASCET criteria. 7. Multiple thyroid nodules, the largest measuring up to approximately 1.5 cm. ACR White Paper guidelines (Crouch JK, et al. JACR 2015;12(2):143-50) suggest further evaluation with thyroid ultrasound. Note: Insofar seen, the arterial disease appears similar to the prior examination. N.B. : The above Results were Read Back by Stevie Garcia DO to Ochoa Mascorro DO, and understanding confirmed on 11/13/2023 22:02:59 (ET). Electronically Signed: Stevie Garcia DO at 21:59 EDT , Chest X-Ray 11/13/23 21:15 IMPRESSION: Diffuse patchy bilateral pulmonary opacities may be secondary to pulmonary edema and/or multifocal pneumonia or perhaps chronic interstitial changes, similar to prior examination. Electronically Signed: Stevie Garcia, DO at 21:47 EDT , Assessment & Plan Assessment/Plan (1) TIA (transient ischemic attack): (2) Ischemic cerebrovascular accident (CVA): (3) Carotid stenosis: QUALIFIERS: Laterality: left Qualified Code(s): I65.22 - Occlusion and stenosis of left carotid artery (4) Essential (primary) hypertension: (5) Hyperlipidemia: QUALIFIERS: Hyperlipidemia type: unspecified Qualified Code(s): E78.5 - Hyperlipidemia, unspecified (6) Paroxysmal atrial fibrillation: (7) History of TIA (transient ischemic attack): PLAN: Plan 1. TIA; with transient Left facial weakness and slurred speech in the setting of CVA (09/2023); with residual Left-sided weakness already on BASA and statin daily - Admit to PCU under observation status. 2. History of LCC artery stenosis (~70%); followed by Dr. Dobbs of vascular surgery with history of TIA (2018) likely precipitating #1 - Check carotid doppler to confirm suspicion as this test can more clearly define potential anatomic abnormalities noted on CT. Finally, we will consult Dr. Dobbs to see this patient on-rounds in the AM for further recommendations. 3. History of atrial fibrillation; on Eliquis complicating #1 & #2 - Resume Eliquis as previous. 4. Essential Hypertension - Hold scheduled antihypertensives until CVA definitively ruled out on MRI to allow for 'permissive hypertension'. 5. Hyperlipidemia - Resume statin and check Lipid Profile. 6. Morbid obesity; with BMI of 48.5 this admission plus KIANNA; on nocturnal BiPAP - Weight loss will be recommended. Continue nocturnal BiPAP as before. 7. Hypothyroidism - Resume Synthroid as previous and check TSH. 8. History of CAD; s/p NSTEMI (2019) - Stable. 9. History of CHF - Noted with no signs of volume overload at this time. 10. DM-2; of unknown control - ADA diet. FSBS q. AC/HS plus SSI. Check HgbA1c to objectively assess quality diabetic control. 11. History of Hodgkin's Lymphoma; currently in remission - Stable. 12. Chronic anemia - Stable with hemoglobin of 11 g/dL present on admission. 13. History of nephrolithotomy - Noted. 14. BPH - Resume Tamsulosin as previous. 15. Depression - Continue current regimen. 16. GERD - Resume PPI. 17. OA - Give Tylenol prn. 18. DVT prophylaxis - Patient already on Eliquis for #3 which will be continued. Total time: Approximately 70 minutes. Charges/Coding Visit Charges OBSV E&M: 11374 Observ/hosp same date L2
[2023-11-14] VITALS (7 sets, daily range): BP systolic 142–180; BP diastolic 66–83; PULSE 64–70; RESP 14–18; TEMP 36–36.7; O2SAT 93–100; BMI 47.8
--- NOTE | 2023-11-14 00:21 | MRI_ITS ---
ACR Level 3 findings have been noted. An addendum which confirms receipt of the report will follow. STUDY: MRI BRAIN WITHOUT CONTRAST REASON FOR EXAM: Male, 58 years old. Transient Left facial weakness and slurred speech. TECHNIQUE: Standardized multiplanar fat and water weighted pulse sequences were obtained. COMPARISON: Head CT dated November 13, 2023 FINDINGS: A small acute infarct is present in the posterior superior aspect of the right frontal lobe seen on image 22/60 series 4 diffusion-weighted sequence. No additional acute infarcts are present. Normal size of the ventricles and extra-axial spaces for the patient''s age. There are a limited number of small white matter hyperintensities, distributed throughout the deep white matter tracts of the cerebral hemispheres, consistent with mild chronic white matter ischemic changes. Normal T2* images of the brain without demonstrated susceptibility artifact. There is no demonstrated hemosiderin stain. There are no demyelinating plagues of the supratentorial brain, brainstem or cerebellum. There are no findings suspicious for multiple sclerosis (MS). Old lacunar infarct noted in the left caudate nucleus. Normal thalami. There is no extra-axial fluid accumulation. Normal flow voids within the major intracranial circulation suggesting patency by spin echo criteria. Normal sella turcica, pituitary gland, infundibular stalk, optic chiasm and hypothalamus. Normal tectal plate and pineal gland. Normal midbrain, rian and medulla. Normal cerebellum. Normal basal cisterns. Normal bilateral temporal bones. Normal bilateral internal auditory canals. No demonstrated orbital abnormality, within the constraints of a routine brain study. Normal visualized paranasal sinuses. Normal calvarium and skull base. Normal visualized soft tissue structures. Normal visualized upper cervical spine. MRI/Brain without Contrast IMPRESSION: Small acute right frontal lobe infarct. 1. A small acute infarct is present in the posterior superior aspect of the right frontal lobe seen on image 22/60 series 4 diffusion-weighted sequence. No additional acute infarcts are present. 2. Old lacunar infarct of the left caudate nucleus. Electronically Signed: Jerardo Valencia MD at 10:58 EDT ,
--- NOTE | 2023-11-14 00:21 | CDU_ITS ---
Reason For Study: Stenosis Rt. Velocities/BP Lt. Velocities/BP Prox CCA 125.1/16.2 cm/sec. Prox CCA 163.1/20.4 cm/sec. Mid CCA 145.5/22.6 cm/sec. Mid CCA 279.7/32.6 cm/sec. Dist CCA 108.2/20.4 cm/sec. Dist CCA 291.5/36.5 cm/sec. Prox ICA 90.7/18.2 cm/sec. Prox ICA 177.7/16.9 cm/sec. Mid ICA 86.3/18.2 cm/sec. Mid ICA 194.9/43 cm/sec. Dist ICA 99.4/22.6 cm/sec. Dist ICA 130.3/33.3 cm/sec. Rt. ICA/CCA = 0.68. Lt. ICA/CCA = 0.70. Prox ECA 291.5/12.9 cm/sec. Prox ECA 213/5.1 cm/sec. Rt. Vert. 52/10.2 cm/sec. Lt. Vert. 32.4/4.1 cm/sec. Right Extracranial There is heterogeneous, irregular atherosclerotic plaque noted in the right common carotid artery. There is heterogeneous, irregular atherosclerotic plaque noted in the right internal carotid artery. There is heterogeneous, irregular atherosclerotic plaque noted in the right external carotid artery. Antegrade flow is noted in the right vertebral artery. Left Extracranial There is heterogeneous, irregular atherosclerotic plaque noted in the left common carotid artery. There is heterogeneous, irregular atherosclerotic plaque noted in the left internal carotid artery. There is heterogeneous, irregular atherosclerotic plaque noted in the left external carotid artery. Antegrade flow is noted in the left vertebral artery. Procedure Carotid Duplex [id number]. This is a Carotid Duplex examination using B-mode, color flow and specral Doppler. Exam performed portable in patient room. VL/Carotid Duplex Ultrasound Interpretation Summary Mild (<50%) stenosis right extracranial internal carotid. Moderate (50-69%) stenosis left extracranial internal carotid. Mid common carot id artery with >50% stenosis. Patent and antegrade vertebrals bilaterally. Ordering Physician: Eduin Umaña Referring Physician: Radha Khan M.D. Performed By: Nury Brenner RVT
[2023-11-14] MEDS: HYDROcodone Bitartrate/Apap 5/325 Tablet PO ×2 (01:05→09:05)
[2023-11-14 01:17] LABS: Hemoglobin A1c 7.8 % (3.8-5.6)
[2023-11-14 01:39] LABS: Alcohol, Blood (Medical)-Serum < 3.0 mg/dL
[2023-11-14] MEDS: Levothyroxine 125 MCG Tablet PO (05:11)
[2023-11-14 06:22] LABS: Cholesterol 125 mg/dL (200); High Density Lipoprotein 41 mg/dL; Triglycerides 140 mg/dL; Very Low Density Lipoprotein 28 mg/dL (5-40)
[2023-11-14 06:57] LABS: Bedside Glucose 143 mg/dL (74-106)
[2023-11-14 07:03] LABS: Bedside Glucose 91 mg/dL (74-106)
[2023-11-14] MEDS: 0.9% Normal Saline (1000mL) 1,000 ML 50 ML IV (08:24)
--- NOTE | 2023-11-14 08:56 | CON.PCM.NE_ITS ---
Assessment and Plan: Stroke Assessment/Plan KRUNAL LEOS, is a 58 RH Male with history of Afib on Eliquis/Asa, DM, HL on lipitor, KIANNA on CPA, CHF, and prior TIAs (07/2022 and 09/2023) who presents with left facial droop, dysphagia, and hoarse voice, onset of symptoms 11/13/2023 at 630pm. Symptoms s 1 hr and resolved. He had similar episode 10/01/2023 (hospitalized at [facility] in [place], diagnosed with TIA) He presented to [place] ER. CT brain negative. CTA shows LVA occlusion with reconstitution at V4 and severe stenosis in BA terminal and right M1. (These findings are similar when I review his CTA ). This AM he feels back to baseline. LDL 56. Hgb 7.8. Neurological examination shows nonfocal exam, NIHSS-0. ASSESSMENT/PLAN: TIA due to BA stenosis 1) Recommend completing TIA work-up including MRI brain 2) Continue home eliquis/Asa/lipitor 3) Follow-up with outpatient neurology clinic. Primary team messaged visa backline. HPI Consult Data Date of Consult: 11/14/23 HPI Narrative HPI Narrative: KRUNAL LEOS, is a 58 RH Male with history of Afib on Eliquis/Asa, DM, HL on lipitor, KIANNA on CPA, CHF, and prior TIAs (07/2022 and 09/2023) who presents with left facial droop, dysphagia, and hoarse voice, onset of symptoms 11/13/2023 at 630pm. Symptoms s 1 hr and resolved. He had similar episode 10/01/2023 (hospitalized at [facility] in [place], diagnosed with TIA) He presented to [place] ER. CT brain negative. CTA shows LVA occlusion with reconstitution at V4 and severe stenosis in BA terminal and right M1. (These findings are similar when I review his CTA ). This AM he feels back to baseline. LDL 56. Hgb 7.8. [facility] Medical History Mini stroke (~10/01/23) Wears glasses Depression Anxiety Cancer Thyroid disease Insulin dependent diabetes mellitus Arthritis History of renal disease Prostate disease Gastric reflux CPAP (continuous positive airway pressure) dependence Sleep apnea Shortness of breath on exertion History of echocardiogram History of stress test History of CHF (congestive heart failure) Cardiology follow-up encounter History of atrial fibrillation Double vision KIANNA treated with BiPAP Congestive heart failure (CHF) Low testosterone Carotid stenosis High cholesterol Vision loss of right eye Vision loss of left eye Anemia Non-smoker Atrial fibrillation Hypertension Obesity History of non-ST elevation myocardial infarction (NSTEMI) (03/28/20) TIA (transient ischemic attack) (2019) Hodgkin disease GERD (gastroesophageal reflux disease) BPH (benign prostatic hyperplasia) Hypothyroidism Essential (primary) hypertension Anxiety and depression Morbid obesity with BMI of 45.0-49.9, adult Nephrolithiasis Hyperlipidemia Diabetes mellitus, type II Home Medications ?Medication ?Instructions ?Recorded ?Last Taken ?Type levothyroxine 125 mcg tablet 125 mcg PO DAILY thyroid 05/03/15 11/03/23 History pantoprazole 40 mg tablet,delayed 40 mg PO DAILY acid reflux 05/03/15 11/04/23 History release (Protonix) tamsulosin 0.4 mg capsule 0.4 mg PO DAILY prostate 09/08/15 11/03/23 History buspirone 10 mg tablet 10 mg PO TID PRN PRN Anxiety 04/17/18 11/04/23 History duloxetine 60 mg capsule,delayed 60 mg PO DAILY depression 04/17/18 11/04/23 History release (Cymbalta) aspirin 81 mg chewable tablet 81 mg PO DAILY@0800 03/30/20 11/01/23 Rx 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 meter,continuous #1 ea 07/26/20 Unknown Rx (Dexcom G6 Cable Tv Installer) pen needle, diabetic 31 gauge x #1,200 ea 12/22/20 Unknown History 08/14 pen needle, diabetic 32 gauge x #150 ea 06/01/21 Unknown Rx (BD Ultra-Fine Kiki Pen Needle) atorvastatin 80 mg tablet (Lipitor) 80 mg PO QHS cholesterol 09/04/21 11/03/23 History 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 transmitter (Dexcom #1 ea 12/29/21 Unknown Rx G6 Transmitter device) infusion set for insulin pump 10/08/22 Unknown History insulin pump controller 10/08/22 Unknown History metoprolol succinate 100 mg 100 mg PO DAILY #90 tabs 01/15/23 11/04/23 Rx tablet,extended release 24 hr hydrocodone-acetaminophen 5-325mg 1 tab PO BID 02/14/23 Unknown History 5mg-325mg 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 sensor (Dexcom G6 #1 ea 02/25/23 Unknown Rx Sensor device) furosemide 40 mg tablet (Lasix) 40 mg PO BID diuretic #180 tabs 04/25/23 11/03/23 Rx amlodipine 5 mg tablet 5 mg PO DAILY #30 tabs 05/02/23 11/03/23 Rx glimepiride 4 mg tablet 4 mg PO DAILY #90 tabs 06/06/23 11/03/23 Rx apixaban 5 mg tablet (Eliquis) 5 mg PO BID #180 tabs 07/21/23 11/01/23 Rx fenofibrate 54 mg tablet 54 mg PO DAILY #30 tabs 10/14/23 Unknown Rx insulin regular hum U-500 conc 500 75 unit (0.15 mL) continuous 11/11/23 Unknown Rx unit/mL subcutaneous soln (Humulin subcutaneous infusion DAILY #20 mL R U-500 (Concentrated) Insulin) lisinopril 20 mg tablet 40 mg PO DAILY 11/13/23 Unknown History spironolactone 50 mg tablet 50 mg PO DAILY 11/13/23 Unknown History Allergy/AdvReac Type Severity Reaction Status Date / Time metoclopramide HCl (From Allergy Severe Anaphylaxis Verified 11/13/23 19:12 Reglan) Family History Brother Heart disease Mother CVA (cerebral vascular accident) Hypertension Rheumatoid arthritis Father Diabetes Other Alcohol abuse ulcer disease Surgical History History of cardiac catheterization History of lymph node excision History of left heart catheterization (2009) Hx of nephrolithotomy with removal of calculi History of thoracentesis (2015) Social History household members: spouse and none Smoking Status: Never smoker Electronic Cigarette Use: not used second hand exposure: No alcohol intake: never substance use type: does not use what type of physical activity do you participate in: none Vital Signs Vital Signs Vital Signs: 11/13/23 19:12 11/13/23 19:27 11/13/23 19:43 Temperature 97.2 F L Temperature Source Temporal Pulse Rate 77 73 73 Respiratory Rate 18 23 H 19 H Respiratory Effort Respiratory Depth Respiratory Pattern Blood Pressure 122/65 H 114/56 L 109/62 Blood Pressure Mean 84 75 77 Blood Pressure Source Blood Pressure Position Blood Pressure Location Pulse Ox 97 98 97 Oxygen Delivery Method Room Air Room Air Room Air 11/13/23 20:27 11/13/23 21:00 11/13/23 22:00 Temperature Temperature Source Pulse Rate 68 67 66 Respiratory Rate 16 18 18 Respiratory Effort Respiratory Depth Respiratory Pattern Blood Pressure 110/56 L 118/57 L 124/59 H Blood Pressure Mean 74 77 80 Blood Pressure Source Blood Pressure Position Blood Pressure Location Pulse Ox 98 97 97 Oxygen Delivery Method Room Air Room Air Room Air 11/13/23 23:00 11/14/23 00:00 11/14/23 00:09 Temperature 98.0 F Temperature Source Pulse Rate 64 64 64 Respiratory Rate 18 18 18 Respiratory Effort Respiratory Depth Respiratory Pattern Blood Pressure 138/72 H 151/74 H 151/74 H Blood Pressure Mean 94 99 99 Blood Pressure Source Blood Pressure Position Blood Pressure Location Pulse Ox 97 97 97 Oxygen Delivery Method Room Air Room Air 11/14/23 00:38 11/14/23 02:00 11/14/23 04:38 Temperature 96.8 F L 97.0 F L Temperature Source Temporal Temporal Pulse Rate 68 70 Respiratory Rate 14 18 Respiratory Effort Normal Non-Labored Respiratory Depth Normal Respiratory Pattern Normal Blood Pressure 180/74 H 170/76 H Blood Pressure Mean 109 107 Blood Pressure Source Monitor Monitor Blood Pressure Position Semi-Fowlers Semi-Fowlers Blood Pressure Location Left Arm Left Arm Pulse Ox 95 98 Oxygen Delivery Method Room Air Room Air Room Air 11/14/23 06:00 11/14/23 07:58 11/14/23 08:39 Temperature 97.4 F L Temperature Source Temporal Pulse Rate 65 Respiratory Rate 18 Respiratory Effort Normal Non-Labored Respiratory Depth Normal Respiratory Pattern Normal Blood Pressure 166/79 H Blood Pressure Mean 108 Blood Pressure Source Monitor Blood Pressure Position Semi-Fowlers Blood Pressure Location Right Arm Pulse Ox 97 Oxygen Delivery Method Room Air Room Air Room Air Weight Weight: 147 kg Body Mass Index (BMI) 47.8 NIHSS NIHSS Nursing Documentation NIHSS Nursing Documentation: NIH Stroke Scale Start: 11/13/23 20:04 Freq: Status: Discharge Protocol: Activity Type Activity Date Activity User E-sign Co-sign Detail Recorded Client Recorded Date Recorded By Document 11/13/23 19:12 ET [id number] 11/13/23 20:05 ET 11/13/23 19:12 NIH Stroke Scale [NIHSS] A score of 0 is normal or asymptomatic . Total possible score is 42. Inpatient: RN or Physician to activate a stroke alert for onset of new stroke symptoms or with NIHSS increase >/= 3 points. Following change in neurological status, NIHSS will be performed per physician order or more frequently PRN. -1a. Level of Consciousness Alert; keenly responsive -1b. LOC Questions Answers BOTH questions correctly. -1c. LOC Commands Performs both tasks correctly . -2. Best Gaze Normal -3. Visual No visual loss -4. Facial Palsy Normal symmetrical movements -5a. Left Arm No drift; arm holds 90 (or 45 ) degrees for full 10 seconds -5b. Right Arm No drift; arm holds 90 (or 45 ) degrees for full 10 seconds -6a. Left Leg No drift; leg holds 30-degree position for full 5 seconds -6b. Right Leg No drift; leg holds 30-degree position for full 5 seconds -7. Limb Ataxia Absent -8. Sensory Normal; no sensory loss -9. Best Language No aphasia; normal -10. Dysarthria Normal -11. Extinction and Inattention No abnormality -Total 0 Query Text:A score of 0 is normal or asymptomatic. Total possible score is 42 . ED: Notify Physician for NIHSS increase by > / = 3 points. Inpatient: RN or Physician to activate a stroke alert for NIHSS increase of > / = 3 points. NIHSS: Ischemic Stroke/TIA Start: 11/14/23 00:31 Text: For PCU Patients: NIH and Neuro Check every 4 Status: Active hours, PRN and with change in RN caregiver. Freq: [id number] Protocol: Activity Type Activity Date Activity User E-sign Co-sign Detail Recorded Client Recorded Date Recorded By Document 11/14/23 06:00 ADR [id number] 11/14/23 06:54 ADR 11/14/23 06:00 -1a. Level of Consciousness Alert; keenly responsive -1b. LOC Questions Answers BOTH questions correctly. -1c. LOC Commands Performs both tasks correctly . -2. Best Gaze Normal -3. Visual No visual loss -4. Facial Palsy Normal symmetrical movements -5a. Left Arm No drift; arm holds 90 (or 45 ) degrees for full 10 seconds -5b. Right Arm No drift; arm holds 90 (or 45 ) degrees for full 10 seconds -6a. Left Leg No drift; leg holds 30-degree position for full 5 seconds -6b. Right Leg No drift; leg holds 30-degree position for full 5 seconds -7. Limb Ataxia Absent -8. Sensory Normal; no sensory loss -9. Best Language No aphasia; normal -10. Dysarthria Normal -11. Extinction and Inattention No abnormality -Total 0 Query Text:A score of 0 is normal or asymptomatic. Total possible score is 42 . ED: Notify Physician for NIHSS increase by > / = 3 points. Inpatient: RN or Physician to activate a stroke alert for NIHSS increase of > / = 3 points. Coma Scale [Assess] -Eye Opening Spontaneous -Motor Obeys Commands -Verbal Oriented [Total] -Coma Scale Total 15 NIHSS 1a. Level of Consciousness: Alert; keenly responsive 1b. LOC Questions: Answers BOTH questions correctly. 1c. LOC Commands: Performs both tasks correctly. 2. Best Gaze: Normal 3. Visual: No visual loss 4. Facial Palsy: Normal symmetrical movements 5a. Left Arm: No drift; arm holds 90 (or 45) degrees for full 10 seconds 5b. Right Arm: No drift; arm holds 90 (or 45) degrees for full 10 seconds 6a. Left Leg: No drift; leg holds 30-degree position for full 5 seconds 6b. Right Leg: No drift; leg holds 30-degree position for full 5 seconds 7. Limb Ataxia: Absent 8. Sensory: Normal; no sensory loss 9. Best Language: No aphasia; normal 10. Dysarthria: Normal 11. Extinction and Inattention: No abnormality Total: 0 Physical Exam Neuro Neuro Narrative: Neurological examination: General: The patient appears nutritionally appropriate, well-groomed, and appears comfortable in no acute distress. Mental Status: The patient?s mental status was normal including orientation. Language was intact. Cranial nerves: Visual goldberg full, pupils were equal and reactive to light, and extra-ocular motion was intact. Face motion and sensation were symmetric. Bilateral shoulder shrug was intact. Tongue was midline with normal movement. There was no dysarthria. Motor: Normal strength and tone in all four extremities. No pronator drift. Sensation: Intact light touch bilaterally, no extinction. Coordination: Bilateral finger to nose was normal. There was no dysmetria. Gait: deferred Lab / Micro Data 11/13/23 19:43 11/13/23 19:43 Labs: Laboratory Results - last 24 hr 11/13/23 19:31: POC Glucose 256 H 11/13/23 19:43: WBC 12.0 H, RBC 4.68, Hgb 11.0 L, Hct 36.4 L, MCV 77.8 L, MCH 23.5 L, MCHC 30.2 L, RDW Std Deviation 52.2 H, RDW Coeff of Gavi 18.7 H, Plt Count 239, MPV 10.8, Immature Gran % (Auto) 2.200 H, Neut % (Auto) 65.6, Lymph % (Auto) 19.0, Mineral % (Auto) 9.7, Eos % (Auto) 2.6, Baso % (Auto) 0.9, Absolute Neuts (auto) 7.9 H, Absolute Lymphs (auto) 2.28, Nucleated RBC % 0, Differential Comment SCANNED, PT Cancelled, INR Cancelled, APTT Cancelled, Sodium 133 L, Potassium 4.9, Chloride 103, Carbon Dioxide 22.0, Anion Gap 8, BUN 34 H, C reatinine 1.56 H, Estim Creat Clear Calc 72.64, Est GFR (MDRD) Af Amer 59 L, Est GFR (MDRD) Non-Af 49 L, BUN/Creatinine Ratio 21.8 H, Glucose 258 H, Calcium 8.6, Troponin I High Sens 13 11/13/23 20:55: PT 14.8, INR 1.2, APTT 27.8 11/14/23 00:41: POC Glucose 143 H 11/14/23 00:51: Hemoglobin A1c 7.8 H, Folate 5.80, TSH 3.910 H, Ethyl Alcohol < 3.0 11/14/23 05:09: Triglycerides 140, Cholesterol 125, LDL Cholesterol 56, VLDL Cholesterol 28, HDL Cholesterol 41 11/14/23 06:21: POC Glucose 91 Imaging Radiology Impression Head/Neck CTA 11/13/23 20:16 IMPRESSION: 1. 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 2. Reconstitution of the proximal V4 intradural segment of the left vertebral artery with additional near occlusion distal to the posterior inferior cerebellar artery origin. 3. Near occlusion of the basilar artery terminus. 4. Near occlusion of the proximal M1 segment of the right middle cerebral artery. 5. Interstitial thickening in the lung apices is nonspecific. Consider chronic changes and/or edema. 6. Diffuse atherosclerosis of the left common carotid artery with associated plaque ulceration measuring up to approximately 5 mm and no greater than 50% stenosis. Atherosclerosis extending through the left carotid bifurcation and carotid bulb with approximately 50% stenosis of the left internal carotid artery by NASCET criteria. 7. Multiple thyroid nodules, the largest measuring up to approximately 1.5 cm. ACR White Paper guidelines (Crouch JK, et al. JACR 2015;12(2):143-50) suggest further evaluation with thyroid ultrasound. Note: Insofar seen, the arterial disease appears similar to the prior examination. Electronically Signed: Stevie Garcia DO at 21:59 EDT , ADDENDUM: 11/13/23 2458 IMPRESSION: 1. 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 2. Reconstitution of the proximal V4 intradural segment of the left vertebral artery with additional near occlusion distal to the posterior inferior cerebellar artery origin. 3. Near occlusion of the basilar artery terminus. 4. Near occlusion of the proximal M1 segment of the right middle cerebral artery. 5. Interstitial thickening in the lung apices is nonspecific. Consider chronic changes and/or edema. 6. Diffuse atherosclerosis of the left common carotid artery with associated plaque ulceration measuring up to approximately 5 mm and no greater than 50% stenosis. Atherosclerosis extending through the left carotid bifurcation and carotid bulb with approximately 50% stenosis of the left internal carotid artery by NASCET criteria. 7. Multiple thyroid nodules, the largest measuring up to approximately 1.5 cm. ACR White Paper guidelines (Crouch JK, et al. JACR 2015;12(2):143-50) suggest further evaluation with thyroid ultrasound. Note: Insofar seen, the arterial disease appears similar to the prior examination. N.B. : The above Results were Read Back by Stevie Garcia DO to Schwiger, Ochoa, , DO, and understanding confirmed on 11/13/2023 22:02:59 (ET). Electronically Signed: Stevie Garcia DO at 21:59 EDT , Chest X-Ray 11/13/23 21:15 IMPRESSION: Diffuse patchy bilateral pulmonary opacities may be secondary to pulmonary edema and/or multifocal pneumonia or perhaps chronic interstitial changes, similar to prior examination. Electronically Signed: Stevie Garcia DO at 21:47 EDT , Active Medications Active Medications Active Medications: Current Medications Generic Name Dose Route Start Last Admin Trade Name Freq PRN Reason Stop Dose Admin Acetaminophen 650 mg 11/14/23 00:31 Acetaminophen 325 Mg Tablet PO Q6H PRN PRN Pain 1-10 or Fever Hydrocodone Bitart/Acetaminophen 1 tablet 11/14/23 00:45 11/14/23 01:05 Hydrocodone Bitartrate/Apap 5/325 Tablet PO 1 tablet BID ALTA Administration Apixaban 5 mg 11/14/23 10:00 Apixaban 5 Mg Tablet PO BID ALTA Aspirin 81 mg 11/14/23 08:00 Aspirin 81 Mg Tab.Chew PO DAILY@0800 ALTA Atorvastatin Calcium 80 mg 11/14/23 22:00 Atorvastatin Calcium 80 Mg Tablet PO QHS ALTA Buspirone HCl 10 mg 11/14/23 00:31 Buspirone 5 Mg Tablet PO TID PRN PRN Anxiety Duloxetine HCl 60 mg 11/14/23 10:00 Duloxetine Hcl 60 Mg Capsule PO DAILY [facility] Fenofibrate 48 mg 11/14/23 10:00 Fenofibrate 48 Mg Tablet PO DAILY [facility] Sodium Chloride 1,000 mls @ 50 mls/hr 11/14/23 07:20 11/14/23 08:24 IV 11/14/23 17:19 50 mls/hr .Q20H ALTA Administration Insulin Aspart 75 unit 11/14/23 10:00 Insulin Basal Pump SC DAILY ALTA Levothyroxine Sodium 125 mcg 11/14/23 06:00 11/14/23 05:11 Levothyroxine 125 Mcg Tablet PO 125 mcg 0600 ALTA Administration Pantoprazole Sodium 40 mg 11/14/23 10:00 Pantoprazole Sodium 40 Mg Tablet PO DAILY [facility] Spironolactone 50 mg 11/14/23 10:00 Spironolactone 50 Mg Tablet PO DAILY [facility] Protocol Tamsulosin HCl 0.4 mg 11/14/23 10:00 Tamsulosin Hcl 0.4 Mg Capsule PO DAILY ALTA
[2023-11-14] MEDS: Aspirin 81 MG TAB.CHEW PO (09:05)
[2023-11-14] MEDS: Tamsulosin HCl 0.4 MG Capsule PO (09:05)
[2023-11-14] MEDS: Pantoprazole Sodium 40 MG Tablet PO (09:05)
[2023-11-14] MEDS: DULoxetine Hcl 60 MG Capsule PO (09:05)
[2023-11-14] MEDS: Fenofibrate 48 MG Tablet PO (09:05)
[2023-11-14] MEDS: APIXABAN 5 MG TABLET PO (09:05)
--- NOTE | 2023-11-14 11:50 | CASEMGMT ---
SW went to patient's room to complete a PHQ 9 due to patient having s Stroke. Patient had numerous visitors. SW told patient SW will check back a little later. Patient was in agreement with this. Betina SHIELDS
[2023-11-14 11:59] LABS: Bedside Glucose 126 mg/dL (74-106)
--- NOTE | 2023-11-14 13:26 | EX.PCM.CON.S ---
Assessment & Plan Assessment/Plan (1) Ischemic cerebrovascular accident (CVA): (2) Carotid stenosis: QUALIFIERS: Laterality: left Qualified Code(s): I65.22 - Occlusion and stenosis of left carotid artery PLAN: Plan As his this infarct was in the R frontal lobe, his L CCA stenosis is noncontributory and remains asymptomatic. On CTA today, this CCA stenosis appears stable from last exam. Will continue with plan for monitoring and conservative management. There is no vascular surgical indication at this time. His intracerebral arteriosclerosis is a possible cause of these recurrent events. In September, [facility] endovascular neuro had recommended against intervention and for aggressive medical management of his intracerebral stenoses; however, will reach out and see if given this recurrence the recommendations would remain the same. Will coordinate referral to their office on an outpatient basis if indicated. Could consider consider either initiating Plavix in addition to current regimen or switching ASA for Plavix. HPI Consult Data Date of Consult: 11/14/23 HPI Narrative HPI Narrative: KRUNAL LEOS, is a 58 M who presented to the [facility] ER last night with left facial droop, slurred speech, and hoarse voice that started about an hour and a half prior to his arrival. His symptoms resolved by the time he was evaluated in the ER. He was admitted for stroke workup. Brain CT was negative. CTA Head and Neck showed L CCA stenosis 50%, L ICA stenosis 50%, L extracranial vertebral artery occlusion, near occlusion of the basilar artery terminus, near occlusion of the proximal M1 segment of R MCA. Brain MRI showed small acute infarct in the R frontal lobe. Patient is established in our office for his L CCA stenosis which is approximately 70% and given the location and and appearance of the plaque planning for surgical intervention in this location only if it becomes symptomatic or reaches >90% stenosis. In September, he had a CVA with left facial drooping and LUE weakness which also fully resolved. He was initially seen at [place] and the ultimately transferred to [facility] for this. He had MRI brain at that time which showed numerous subcentimeter acute infarcts in the R cerebral hemisphere mainly in the cortex suggestive of an embolic source. He also had CTA Neck and carotid ultrasound which showed bilateral ICA stenosis <50%. He was found to have L vertebral artery occlusion and basilar artery stenosis but both were felt to be noncontributory. He was evaluated by vascular surgery, endovascular neurointerventional surgery, and neurology at [facility]. The consensus at that time was that there were no indications for vascular intervention and aggressive medical management was recommended. He was continued on Eliquis, ASA, and statin. On review of these prior records, Plavix was not added due to him being on Cymbalta in addition to the Eliquis and ASA. [facility] Medical History Mini stroke (~10/01/23) Wears glasses Depression Anxiety Cancer Thyroid disease Insulin dependent diabetes mellitus Arthritis History of renal disease Prostate disease Gastric reflux CPAP (continuous positive airway pressure) dependence Sleep apnea Shortness of breath on exertion History of echocardiogram History of stress test History of CHF (congestive heart failure) Cardiology follow-up encounter History of atrial fibrillation Double vision KIANNA treated with BiPAP Congestive heart failure (CHF) Low testosterone Carotid stenosis High cholesterol Vision loss of right eye Vision loss of left eye Anemia Non-smoker Atrial fibrillation Hypertension Obesity History of non-ST elevation myocardial infarction (NSTEMI) (03/28/20) TIA (transient ischemic attack) (2018) Hodgkin disease GERD (gastroesophageal reflux disease) BPH (benign prostatic hyperplasia) Hypothyroidism Essential (primary) hypertension Anxiety and depression Morbid obesity with BMI of 45.0-49.9, adult Nephrolithiasis Hyperlipidemia Diabetes mellitus, type II Home Medications ?Medication ?Instructions ?Recorded ?Last Taken ?Type levothyroxine 125 mcg tablet 125 mcg PO DAILY thyroid 05/03/15 11/03/23 History pantoprazole 40 mg tablet,delayed 40 mg PO DAILY acid reflux 05/03/15 11/04/23 History release (Protonix) tamsulosin 0.4 mg capsule 0.4 mg PO DAILY prostate 09/08/15 11/03/23 History buspirone 10 mg tablet 10 mg PO TID PRN PRN Anxiety 04/17/18 11/04/23 History duloxetine 60 mg capsule,delayed 60 mg PO DAILY depression 04/17/18 11/04/23 History release (Cymbalta) aspirin 81 mg chewable tablet 81 mg PO DAILY@0800 03/30/20 11/01/23 Rx 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 meter,continuous #1 ea 07/26/20 Unknown Rx (Dexcom G6 Customer Insight Analyst) pen needle, diabetic 31 gauge x #1,200 ea 09/23/21 Unknown History 08/14 pen needle, diabetic 32 gauge x #150 ea 06/01/21 Unknown Rx (BD Ultra-Fine Kiki Pen Needle) atorvastatin 80 mg tablet (Lipitor) 80 mg PO QHS cholesterol 09/04/21 11/03/23 History 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 transmitter (Dexcom #1 ea 12/29/21 Unknown Rx G6 Transmitter device) infusion set for insulin pump 10/08/22 Unknown History insulin pump controller 10/08/22 Unknown History metoprolol succinate 100 mg 100 mg PO DAILY #90 tabs 01/15/23 11/04/23 Rx tablet,extended release 24 hr hydrocodone-acetaminophen 5-325mg 1 tab PO BID 02/14/23 Unknown History 5mg-325mg 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 sensor (Dexcom G6 #1 ea 02/25/23 Unknown Rx Sensor device) furosemide 40 mg tablet (Lasix) 40 mg PO BID diuretic #180 tabs 04/25/23 11/03/23 Rx amlodipine 5 mg tablet 5 mg PO DAILY #30 tabs 05/02/23 11/03/23 Rx glimepiride 4 mg tablet 4 mg PO DAILY #90 tabs 06/06/23 11/03/23 Rx apixaban 5 mg tablet (Eliquis) 5 mg PO BID #180 tabs 07/21/23 11/01/23 Rx fenofibrate 54 mg tablet 54 mg PO DAILY #30 tabs 10/14/23 Unknown Rx insulin regular hum U-500 conc 500 75 unit (0.15 mL) continuous 11/11/23 Unknown Rx unit/mL subcutaneous soln (Humulin subcutaneous infusion DAILY #20 mL R U-500 (Concentrated) Insulin) lisinopril 20 mg tablet 40 mg PO DAILY 11/13/23 Unknown History spironolactone 50 mg tablet 50 mg PO DAILY 11/13/23 Unknown History Allergy/AdvReac Type Severity Reaction Status Date / Time metoclopramide HCl (From Allergy Severe Anaphylaxis Verified 11/13/23 19:12 Reglan) Family History Brother Heart disease Mother CVA (cerebral vascular accident) Hypertension Rheumatoid arthritis Father Diabetes Other Alcohol abuse ulcer disease Surgical History History of cardiac catheterization History of lymph node excision History of left heart catheterization (2010) Hx of nephrolithotomy with removal of calculi History of thoracentesis (2016) Social History household members: spouse and none Smoking Status: Never smoker Electronic Cigarette Use: not used second hand exposure: No alcohol intake: never substance use type: does not use what type of physical activity do you participate in: none Physical Exam Narrative Const General: cooperative, healthy appearing, comfortable, no acute distress and well developed Nutritional Appearance: well nourished Orientation: alert, awake and oriented x3 HENMT Head: normocephalic and atraumatic Ears: hearing grossly normal bilaterally Nose: external nose normal Eyes General: appearance normal, both eyes and all related structures EOM: EOM intact bilaterally Neck Neck: normal visual inspection, full ROM and trachea midline Resp Effort & Inspection: normal respiratory effort, able to speak in complete sentences, symmetric chest movement, no audible wheezes, not labored, no stridor and no use of accessory muscles Auscultation: clear to auscultation bilaterally Cardio Rate: regular rate Rhythm: regular rhythm Heart Sounds: no murmurs Bruits: no carotid bruits Pulses: brachial pulses present and radial pulses present Skin General: no rashes or lesions noted and no erythema Wounds: no wounds Neuro Cranial Nerves: CN's II-XI intact bilaterally and EOM intact bilaterally Speech: speech normal Motor: strength 5/5 throughout Psych Appearance: grossly normal and well kempt Mental Status: mental status grossly normal Mood: congruent mood Speech and Movement: speech and movement normal Thought Content: normal Judgment: judgment good Lab / Micro Data 11/13/23 19:43 11/13/23 19:43 Labs: Laboratory Results - last 24 hr 11/13/23 19:31: POC Glucose 256 H 11/13/23 19:43: WBC 12.0 H, RBC 4.68, Hgb 11.0 L, Hct 36.4 L, MCV 77.8 L, MCH 23.5 L, MCHC 30.2 L, RDW Std Deviation 52.2 H, RDW Coeff of Gavi 18.7 H, Plt Count 239, MPV 10.8, Immature Gran % (Auto) 2.200 H, Neut % (Auto) 65.6, Lymph % (Auto) 19.0, Henry % (Auto) 9.7, Eos % (Auto) 2.6, Baso % (Auto) 0.9, Absolute Neuts (auto) 7.9 H, Absolute Lymphs (auto) 2.28, Nucleated RBC % 0, Differential Comment SCANNED, PT Cancelled, INR Cancelled, APTT Cancelled, Sodium 133 L, Potassium 4.9, Chloride 103, Carbon Dioxide 22.0, Anion Gap 8, BUN 34 H, Creatinine 1.56 H, Estim Creat Clear Calc 72.64, Est GFR (MDRD) Af Amer 59 L, Est GFR (MDRD) Non-Af 49 L, BUN/Creatinine Ratio 21.8 H, Glucose 258 H, Calcium 8.6, Troponin I High Sens 13 11/13/23 20:55: PT 14.8, INR 1.2, APTT 27.8 11/14/23 00:41: POC Glucose 143 H 11/14/23 00:51: Hemoglobin A1c 7.8 H, Folate 5.80, TSH 3.910 H, Ethyl Alcohol < 3.0 11/14/23 05:09: Triglycerides 140, Cholesterol 125, LDL Cholesterol 56, VLDL Cholesterol 28, HDL Cholesterol 41 11/14/23 06:21: POC Glucose 91 11/14/23 11:41: POC Glucose 126 H Imaging Radiology Impression Head/Neck CTA 11/13/23 20:16 IMPRESSION: 1. 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 2. Reconstitution of the proximal V4 intradural segment of the left vertebral artery with additional near occlusion distal to the posterior inferior cerebellar artery origin. 3. Near occlusion of the basilar artery terminus. 4. Near occlusion of the proximal M1 segment of the right middle cerebral artery. 5. Interstitial thickening in the lung apices is nonspecific. Consider chronic changes and/or edema. 6. Diffuse atherosclerosis of the left common carotid artery with associated plaque ulceration measuring up to approximately 5 mm and no greater than 50% stenosis. Atherosclerosis extending through the left carotid bifurcation and carotid bulb with approximately 50% stenosis of the left internal carotid artery by NASCET criteria. 7. Multiple thyroid nodules, the largest measuring up to approximately 1.5 cm. ACR White Paper guidelines (Miko JK, et al. JACR 2015;12(2):143-50) suggest further evaluation with thyroid ultrasound. Note: Insofar seen, the arterial disease appears similar to the prior examination. Electronically Signed: Stevie Garcia DO at 21:59 EDT , ADDENDUM: 11/13/239 IMPRESSION: 1. 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 2. Reconstitution of the proximal V4 intradural segment of the left vertebral artery with additional near occlusion distal to the posterior inferior cerebellar artery origin. 3. Near occlusion of the basilar artery terminus. 4. Near occlusion of the proximal M1 segment of the right middle cerebral artery. 5. Interstitial thickening in the lung apices is nonspecific. Consider chronic changes and/or edema. 6. Diffuse atherosclerosis of the left common carotid artery with associated plaque ulceration measuring up to approximately 5 mm and no greater than 50% stenosis. Atherosclerosis extending through the left carotid bifurcation and carotid bulb with approximately 50% stenosis of the left internal carotid artery by NASCET criteria. 7. Multiple thyroid nodules, the largest measuring up to approximately 1.5 cm. ACR White Paper guidelines (Crouch JK, et al. JACR 2015;12(2):143-50) suggest further evaluation with thyroid ultrasound. Note: Insofar seen, the arterial disease appears similar to the prior examination. N.B. : The above Results were Read Back by Stevie Garcia DO to Ochoa Mascorro DO, and understanding confirmed on 11/13/2023 22:02:59 (ET). Electronically Signed: Stevie Garcia DO at 21:59 EDT , Chest X-Ray 11/13/23 21:15 IMPRESSION: Diffuse patchy bilateral pulmonary opacities may be secondary to pulmonary edema and/or multifocal pneumonia or perhaps chronic interstitial changes, similar to prior examination. Electronically Signed: Stevie Garcia DO at 21:47 EDT , Brain MRI 11/14/23 00:21 IMPRESSION: Small acute right frontal lobe infarct. 1. A small acute infarct is present in the posterior superior aspect of the right frontal lobe seen on image 22/60 series 4 diffusion-weighted sequence. No additional acute infarcts are present. 2. Old lacunar infarct of the left caudate nucleus. Electronically Signed: Jerardo Valencia MD at 10:58 EDT , ADDENDUM: 11/14/23 1141 IMPRESSION: Small acute right frontal lobe infarct. 1. A small acute infarct is present in the posterior superior aspect of the right frontal lobe seen on image 22/60 series 4 diffusion-weighted sequence. No additional acute infarcts are present. 2. Old lacunar infarct of the left caudate nucleus. N.B. : Coreen Rodas RN, confirmed on 11/14/2023 11:34:46 (ET) that the healthcare facility has received the radiology report. Electronically Signed: Jerardo Valencia MD at 10:58 EDT , Charges/Coding Visit Charges Office Visits / Consults: [id number] IP Consult L2
--- NOTE | 2023-11-14 13:39 | CASEMGMT ---
SW completed a PHQ 9 with patient as he had a Stroke. Patient scored an 8 which indicates mild depression. Patient declined need for counseling resources. [facility] SHIELDS
[2023-11-14 14:04] LABS: Vitamin B12 340 pg/mL (211-911)
--- NOTE | 2023-11-14 15:27 | PCM.DC.SUM ---
Providers Date of Admission: 11/14/23 Date of Discharge: 11/14/23 Primary Care Physician: Dr. Radha Khan MD Consultations 11/14/23 00:31 Consult: Tele-Neurology Routine Consulting Provider: [facility] Reason for Consult: Acute Ischemic Stroke/TIA EMERGENT Consult: No MD Notified: Yes Date Notified: 11/14/23 Time Notified: 00:15 Method of Notification: ED Physician Initiated Nursing Unit Staff Notify [facility] of Tele-Neurology Consult: Yes Consult: Vascular Surgery Routine Consulting Provider: Ochoa Dobbs Reason for Consult: History of LCC artery stenosis with TIA vs CVA. EMERGENT Consult: No MD Notified: Yes Date Notified: 11/14/23 Time Notified: 06:44 Method of Notification: Text Reason For Visit: CVA Diagnosis Discharge Diagnosis (1) Ischemic cerebrovascular accident (CVA): Status: Acute Code(s): I63.9 - Cerebral infarction, unspecified (2) Carotid stenosis: Status: Chronic Code(s): I65.29 - Occlusion and stenosis of unspecified carotid artery Qualifiers: Laterality: left Qualified Code(s): I65.22 - Occlusion and stenosis of left carotid artery Plan #CVA and recurrent TIAs # KIANNA # Chronic heart failure with preserved ejection fraction # OA/chronic pain # Diabetes on insulin pump # Carotid stenosis # Hypothyroidism # Multiple thyroid nodules # Chronic neuropathy # Hypertension # Paroxysmal atrial fibrillation # Morbid obesity Medications at Discharge Home Medications levothyroxine 125 mcg tablet 125 mcg PO DAILY thyroid 05/03/15 tamsulosin 0.4 mg capsule 0.4 mg PO DAILY prostate 09/08/15 buspirone 10 mg tablet 10 mg PO TID PRN PRN Anxiety 04/17/18 duloxetine 60 mg capsule,delayed release (Cymbalta) 60 mg PO DAILY depression 04/17/18 aspirin 81 mg chewable tablet 81 mg PO DAILY@0800 03/30/20 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 meter,continuous (Dexcom G6 Cargo Vessel Stewardess) #1 ea 07/26/20 pen needle, diabetic 31 gauge x 08/14 #1,200 ea 12/22/20 pen needle, diabetic 32 gauge x (BD Ultra-Fine Kiki Pen Needle) #150 ea 06/01/21 atorvastatin 80 mg tablet (Lipitor) 80 mg PO QHS cholesterol 06/06/22 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 transmitter (Dexcom G6 Transmitter device) #1 ea 12/29/21 infusion set for insulin pump 10/08/22 insulin pump controller 10/08/22 metoprolol succinate 100 mg tablet,extended release 24 hr 100 mg PO DAILY #90 tabs 01/15/23 hydrocodone-acetaminophen 5-325mg 5mg-325mg 1 tab PO BID 02/14/23 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 sensor (Dexcom G6 Sensor device) #1 ea 02/25/23 furosemide 40 mg tablet (Lasix) 40 mg PO BID diuretic #180 tabs 04/25/23 amlodipine 5 mg tablet 5 mg PO DAILY #30 tabs 05/02/23 glimepiride 4 mg tablet 4 mg PO DAILY #90 tabs 06/06/23 apixaban 5 mg tablet (Eliquis) 5 mg PO BID #180 tabs 07/21/23 fenofibrate 54 mg tablet 54 mg PO DAILY #30 tabs 10/14/23 insulin regular hum U-500 conc 500 unit/mL subcutaneous soln (Humulin R U-500 (Concentrated) Insulin) 75 unit (0.15 mL) continuous subcutaneous infusion DAILY #20 mL 11/11/23 lisinopril 20 mg tablet 40 mg PO DAILY 11/13/23 spironolactone 50 mg tablet 50 mg PO DAILY 11/13/23 clopidogrel 75 mg tablet (Plavix) 75 mg PO DAILY 21 days #21 tabs 11/14/23 pantoprazole 40 mg tablet,delayed release (Protonix) 40 mg PO BID acid reflux 30 days #60 tabs 11/14/23 Hospital Course Summary of Care Provided Minutes Spent on Discharge: 48 Hospital Course: 4-year-old male history of hypertension, diabetes with insulin pump, hypothyroidism, morbid obesity, KIANNA on BiPAP, CVA and TIAs, left carotid artery stenosis, A-fib, heart failure preserved ejection fraction presented to [facility] ED 11/13/2023 with transient left-sided facial weakness, slurred speech, and hoarse voice that began about an hour prior to arrival. In the ED CTA redemonstrated left carotid artery stenosis and other various atherosclerotic areas relatively unchanged from previous scans. Patient brought in for TIA/CVA workup and had neurology consult and MRI ordered as well as vascular consultation. Neurology evaluated and felt patient was medically optimized and initially thought this was TIA given resolution of symptoms however MRI did reveal a small acute infarct in the posterior superior aspect of right frontal lobe and an old lacunar infarct in left caudate nucleus. Vascular evaluated and did not think acute surgical intervention warranted but may need further outpatient referral and evaluation. Discussed antiplatelet and anticoagulation given patient's recurrent TIAs and now CVA despite aspirin and Eliquis. Reportedly patient did not have Plavix added to his regimen previously as he is on Cymbalta and there was concern for increased bleeding risk. Given that patient has now had an acute infarct it was felt that benefits of adding Plavix regimen for 3 weeks and then likely continuing Plavix and Eliquis likely outweigh risks. Discussed risks and benefits with patient and at bedside and they are agreeable to adding Plavix and following up with vascular upon discharge. Discussed increasing Protonix to twice daily to try to decrease chances of bleeding. Discussed warning signs or symptoms that would be suggestive of GI bleed that would prompt patient to return to the emergency department. Discharge instructions as follows: DISCHARGE INSTRUCTIONS PLEASE READ *Please take this with you to your next doctors appointment* -Given your recurrent stroke despite your current medications, Plavix (clopidogrel) will be added to your aspirin and Eliquis for 3 weeks during which time you will need to follow with Dr. Dobbs's office for further determination of blood thinner combination -Your Protonix will be increased to twice daily due to the increased risk of bleeding. This was discussed with you prior to discharge as well as warning signs and symptoms that would prompt need for emergency department -You will need a thyroid ultrasound on an outpatient basis due to multiple thyroid nodules seen on the scan of your head and neck. This can be coordinated through primary care physician's office -It will be important to aggressively control your blood pressure and blood sugars in diet to attempt to decrease risk for recurrent stroke. It is recommended you: Exercise:?Regular physical activity can lower your blood pressure and cholesterol, which are major risk factors for stroke.?You can try to get at least 150 minutes of moderate activity each week, such as walking, taking the stairs, or parking farther away from your destination.?You can also try strength training at least twice a week to build muscle.?If you have a chronic medical condition, you should check with your doctor before starting an exercise program Eat healthy:?Choose foods that are low in saturated and trans fats, cholesterol, sugar, and salt.?Eat plenty of fresh fruits and vegetables, whole grains, healthy proteins, and low-fat dairy.?You can also try adding herbs and spices like oregano, ana maria, and basil to your food.?Instead of frying, you can bake, broil, roast, or boil your food. Limit alcohol:?Alcohol can increase your blood pressure and the risk of stroke. It is advised that you do not take any ibuprofen or NSAIDs as this may increase your risk of stroke -Please follow-up with neurology upon discharge, please call Dr. Vann's office upon discharge to schedule hospital follow-up (ph [phone]) -Please follow-up with Dr. Dobbs upon discharge. Please call their office to schedule hospital follow-up appointment upon discharge. -Please call your primary care provider's office upon discharge to schedule a hospital follow up within 1 week. -For any concerning signs or symptoms please call 911 or proceed to the nearest emergency department Weight / BMI Weight Weight: 147 kg Body Mass Index (BMI) 47.8 ABG / Lab / Microbiology Data 11/13/23 19:43 11/13/23 19:43 Laboratory: Laboratory Results - last 24 hr 11/13/23 19:31: POC Glucose 256 H 11/13/23 19:43: WBC 12.0 H, RBC 4.68, Hgb 11.0 L, Hct 36.4 L, MCV 77.8 L, MCH 23.5 L, MCHC 30.2 L, RDW Std Deviation 52.2 H, RDW Coeff of Gavi 18.7 H, Plt Count 239, MPV 10.8, Immature Gran % (Auto) 2.200 H, Neut % (Auto) 65.6, Lymph % (Auto) 19.0, [place] % (Auto) 9.7, Eos % (Auto) 2.6, Baso % (Auto) 0.9, Absolute Neuts (auto) 7.9 H, Absolute Lymphs (auto) 2.28, Nucleated RBC % 0, Differential Comment SCANNED, PT Cancelled, INR Cancelled, APTT Cancelled, Sodium 133 L, Potassium 4.9, Chloride 103, Carbon Dioxide 22.0, Anion Gap 8, BUN 34 H, Creatinine 1.56 H, Estim Creat Clear Calc 72.64, Est GFR (MDRD) Af Amer 59 L, Est GFR (MDRD) Non-Af 49 L, BUN/Creatinine Ratio 21.8 H, Glucose 258 H, Calcium 8.6, Troponin I High Sens 13 11/13/23 20:55: PT 14.8, INR 1.2, APTT 27.8 11/14/23 00:41: POC Glucose 143 H 11/14/23 00:51: Hemoglobin A1c 7.8 H, Vitamin B12 340, Folate 5.80, TSH 3.910 H, Ethyl Alcohol < 3.0 11/14/23 05:09: Triglycerides 140, Cholesterol 125, LDL Cholesterol 56, VLDL Cholesterol 28, HDL Cholesterol 41 11/14/23 06:21: POC Glucose 91 11/14/23 11:41: POC Glucose 126 H Radiography Diagnostic Testing: Radiology Impression Head/Neck CTA 11/13/23 20:16 IMPRESSION: 1. 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 2. Reconstitution of the proximal V4 intradural segment of the left vertebral artery with additional near occlusion distal to the posterior inferior cerebellar artery origin. 3. Near occlusion of the basilar artery terminus. 4. Near occlusion of the proximal M1 segment of the right middle cerebral artery. 5. Interstitial thickening in the lung apices is nonspecific. Consider chronic changes and/or edema. 6. Diffuse atherosclerosis of the left common carotid artery with associated plaque ulceration measuring up to approximately 5 mm and no greater than 50% stenosis. Atherosclerosis extending through the left carotid bifurcation and carotid bulb with approximately 50% stenosis of the left internal carotid artery by NASCET criteria. 7. Multiple thyroid nodules, the largest measuring up to approximately 1.5 cm. ACR White Paper guidelines (Crouch JK, et al. JACR 2015;12(2):143-50) suggest further evaluation with thyroid ultrasound. Note: Insofar seen, the arterial disease appears similar to the prior examination. Electronically Signed: Stevie Garcia DO at 21:59 EDT , ADDENDUM: 11/13/23 7641 IMPRESSION: 1. 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 2. Reconstitution of the proximal V4 intradural segment of the left vertebral artery with additional near occlusion distal to the posterior inferior cerebellar artery origin. 3. Near occlusion of the basilar artery terminus. 4. Near occlusion of the proximal M1 segment of the right middle cerebral artery. 5. Interstitial thickening in the lung apices is nonspecific. Consider chronic changes and/or edema. 6. Diffuse atherosclerosis of the left common carotid artery with associated plaque ulceration measuring up to approximately 5 mm and no greater than 50% stenosis. Atherosclerosis extending through the left carotid bifurcation and carotid bulb with approximately 50% stenosis of the left internal carotid artery by NASCET criteria. 7. Multiple thyroid nodules, the largest measuring up to approximately 1.5 cm. ACR White Paper guidelines (Crouch JK, et al. JACR 2015;12(2):143-50) suggest further evaluation with thyroid ultrasound. Note: Insofar seen, the arterial disease appears similar to the prior examination. N.B. : The above Results were Read Back by Stevie Garcia DO to Ochoa Mascorro DO, and understanding confirmed on 11/13/2023 22:02:59 (ET). Electronically Signed: Stevie Garcia DO at 21:59 EDT , Chest X-Ray 11/13/23 21:15 IMPRESSION: Diffuse patchy bilateral pulmonary opacities may be secondary to pulmonary edema and/or multifocal pneumonia or perhaps chronic interstitial changes, similar to prior examination. Electronically Signed: Stevie Garcia DO at 21:47 EDT , Brain MRI 11/14/23 00:21 IMPRESSION: Small acute right frontal lobe infarct. 1. A small acute infarct is present in the posterior superior aspect of the right frontal lobe seen on image 22/60 series 4 diffusion-weighted sequence. No additional acute infarcts are present. 2. Old lacunar infarct of the left caudate nucleus. Electronically Signed: Jerardo Valencia MD at 10:58 EDT , ADDENDUM: 11/14/23 1141 IMPRESSION: Small acute right frontal lobe infarct. 1. A small acute infarct is present in the posterior superior aspect of the right frontal lobe seen on image 22/60 series 4 diffusion-weighted sequence. No additional acute infarcts are present. 2. Old lacunar infarct of the left caudate nucleus. N.B. : Coreen Rodas RN, confirmed on 11/14/2023 11:34:46 (ET) that the healthcare facility has received the radiology report. Electronically Signed: Jerardo Valencia MD at 10:58 EDT , Carotid Duplex 11/14/23 00:21 Interpretation Summary Mild (<50%) stenosis right extracranial internal carotid. Moderate (50-69%) stenosis left extracranial internal carotid. Mid common carotid artery with >50% stenosis. Patent and antegrade vertebrals bilaterally. Ordering Physician: Eduin Umaña Referring Physician: Radha Khan M.D. Performed By: Nury Brenner RVT D/C Instructions Discharge Diet: - (DASH diet) Meaningful Use Info Meaningful Use Meaningful Use Diagnoses (Choose all that apply): Ischemic CVA CVA Therapy Assessed for PT,OT and/or ST?: Yes Ischemic Stroke Antithrombotic order at d/c?: Yes Dx of Atrial fib/flutter?: Yes Anticoagulant at discharge?: Yes Statin Dosing Therapy Reference: STATIN DOSE THERAPY REFERENCE: * Patients > 75 years receive moderate or high dose statin therapy. * Patients 75 years or YOUNGER should receive HIGH intensity statin dose unless contraindicated. You will be required to document reason for non-treatment if statin daily dose does not meet guidelines. HIGH DOSE STATIN THERAPY DAILY Atorvastatin > than or = to 40 mg Rosuvastatin > than or = to 20 mg Amlodipine + Atorvastatin > than or = to 2.5/40 mg Ezetimibe + Simvastatin 10/80 mg Simvastatin 80mg Statins at discharge?: Yes If patient is 75 or younger, pt will be discharged on HIGH intensity statin.: Yes Primary Dx Acute Ischemic CVA?: Yes Discharge Plan Admission Admit Date/Time: 11/14/23 10:58 Primary Reason for Your Visit: Left sided facial droop Attending Provider: Xiao Berrios Primary Care Provider: Radha Khan Consulting Providers: Edmund Dey; Kristin Boyd; Amy Dumont; Bethany Velasco; Lucy Granado; Giancarlo Lomeli; Patrizia uBrk; Alden Lazaro; Cristino Flores; Fred Talbert; Jennifer Toledo; Joao Arredondo; Palak Garvin; Michelle Lyons; Indigo Coates; Lavelle Chakraborty; Rogers Heart; Abrahan Bejarano; Mindy Benítez; Ryan Riley; Ochoa Dobbs; Eduin Umaña Instructions Patient Instructions: What Is Ischemic Stroke?, Stroke: Taking Medicines, Stroke: Resources and Support, DASH Plan Eat Heart Healthy Food, Risk Factors for Stroke Additional Instructions / Restrictions: DISCHARGE INSTRUCTIONS PLEASE READ *Please take this with you to your next doctors appointment* -Given your recurrent stroke despite your current medications, Plavix (clopidogrel) will be added to your aspirin and Eliquis for 3 weeks during which time you will need to follow with Dr. Dobbs's office for further determination of blood thinner combination -Your Protonix will be increased to twice daily due to the increased risk of bleeding. This was discussed with you prior to discharge as well as warning signs and symptoms that would prompt need for emergency department -You will need a thyroid ultrasound on an outpatient basis due to multiple thyroid nodules seen on the scan of your head and neck. This can be coordinated through primary care physician's office -It will be important to aggressively control your blood pressure and blood sugars in diet to attempt to decrease risk for recurrent stroke. It is recommended you: Exercise:?Regular physical activity can lower your blood pressure and cholesterol, which are major risk factors for stroke.?You can try to get at least 150 minutes of moderate activity each week, such as walking, taking the stairs, or parking farther away from your destination.?You can also try strength training at least twice a week to build muscle.?If you have a chronic medical condition, you should check with your doctor before starting an exercise program Eat healthy:?Choose foods that are low in saturated and trans fats, cholesterol, sugar, and salt.?Eat plenty of fresh fruits and vegetables, whole grains, healthy proteins, and low-fat dairy.?You can also try adding herbs and spices like oregano, ana maria, and basil to your food.?Instead of frying, you can bake, broil, roast, or boil your food. Limit alcohol:?Alcohol can increase your blood pressure and the risk of stroke. It is advised that you do not take any ibuprofen or NSAIDs as this may increase your risk of stroke -Please follow-up with neurology upon discharge, please call Dr. Vann's office upon discharge to schedule hospital follow-up (ph [phone]) -Please follow-up with Dr. Dobbs upon discharge. Please call their office to schedule hospital follow-up appointment upon discharge. -Please call your primary care provider's office upon discharge to schedule a hospital follow up within 1 week. -For any concerning signs or symptoms please call 911 or proceed to the nearest emergency department Discharge Orders/Prescriptions Prescriptions: New clopidogrel [Plavix] 75 mg tablet 75 mg PO DAILY 21 Days Qty: 21 0RF Continued (DME) Dexcom G6 Cargo Vessel Stewardess Misc See Rx Instructions .ROUTE .MEDSUPPLY Qty: 1 0RF Rx Instructions: As directed (DME) pen needle, diabetic 31 gauge x 5/16 needle See Rx Instructions .ROUTE .MEDSUPPLY Qty: 1200 Patient Comments: use 1 PEN NEEDLE to inject MEDICATION subcutaneously as directed Rx Instructions: As directed (DME) pen needle, diabetic [BD Ultra-Fine Kiki Pen Needle] 32 gauge x 5/32 needle See Rx Instructions .ROUTE .MEDSUPPLY Qty: 150 6RF Rx Instructions: As directed (DME) infusion set for insulin pump Infusion Set See Rx Instructions .Route Rx Instructions: As directed (DME) insulin pump controller Misc See Rx Instructions .Route Rx Instructions: As directed fenofibrate 54 mg tablet 54 mg PO DAILY Qty: 30 5RF levothyroxine 125 MCG tablet 125 mcg PO DAILY tamsulosin 0.4 MG capsule 0.4 mg PO DAILY buspirone 10 MG tablet 10 mg PO TID PRN PRN (Reason: Anxiety) Patient Comments: TAKE ONE TABLET BY MOUTH THREE TIMES DAILY Rx Instructions: pt states he usually takes 1 daily duloxetine [Cymbalta] 60 MG capsule,delayed release(DR/EC) 60 mg PO DAILY Patient Comments: TAKE ONE CAPSULE BY MOUTH DAILY aspirin 81 MG tablet,chewable 81 mg PO DAILY@0800 0RF atorvastatin [Lipitor] 80 MG tablet 80 mg PO QHS Rx Instructions: cholesterol hydrocodone-acetaminophen 5-325 mg tablet 1 tab PO BID lisinopril 20 mg tablet 40 mg PO DAILY spironolactone 50 mg tablet 50 mg PO DAILY (DME) Dexcom G6 Transmitter Device See Rx Instructions .ROUTE .MEDSUPPLY Qty: 1 3RF Rx Instructions: As directed metoprolol succinate 100 mg tablet extended release 24 hr 100 mg PO DAILY Qty: 90 3RF (DME) Dexcom G6 Sensor Device See Rx Instructions .ROUTE .MEDSUPPLY Qty: 1 6RF Rx Instructions: As directed furosemide [Lasix] 40 mg tablet 40 mg PO BID Qty: 180 3RF amlodipine 5 mg tablet 5 mg PO DAILY Qty: 30 11RF glimepiride 4 mg tablet 4 mg PO DAILY Qty: 90 1RF Eliquis 5 mg tablet 5 mg PO BID Qty: 180 3RF Humulin R U-500 (Conc) Insulin 500 unit/mL solution 75 unit continuous subcutaneous infusion DAILY Qty: 20 5RF Patient Comments: INSULIN PUMP Changed pantoprazole [Protonix] 40 MG tablet 40 mg PO BID 30 Days Qty: 60 0RF Referrals / Follow Up: Radha Khan MD [Primary Care Provider] - Within 1 Week Ochoa Dobbs MD [Med Staff - Active Staff] - ( -Please follow-up with Dr. Dobbs upon discharge. Please call their office to schedule hospital follow-up appointment upon discharge.) Toni Vann MD [Non-Staff -Ordering Privileges] - (-Please follow-up with neurology upon discharge, please call Dr. aVnn's office upon discharge to schedule hospital follow-up (ph [phone])) Disposition Disposition (needs filled in before D/C Order can be placed): Home, Self Care
--- NOTE | 2023-11-14 15:28 | CASEMGMT ---
Patient has order for discharge. RN CM in to discuss needs at discharge, at bedside. Patient denies needs or help at discharge. Patient up independent in room. Patient and deny further questions or concerns.
== END 2023-11-14 15:59 | disposition home or self-care (01) | DRG 65 ==
LOC: ED 23:46 → PCU 11-14 00:12
PROVIDERS: Admitting Provider Internal Medicine; Emergency Provider Emergency Medicine; PCP Family Medicine; Visit Provider Internal Medicine
DX: I63.89 Other cerebral infarction (principal); I69.354 Hemiplegia and hemiparesis following cerebral infarction affecting left non-dominant side; I50.32 Chronic diastolic (congestive) heart failure; Z68.42 Body mass index [BMI] 45.0-49.9, adult; I66.01 Occlusion and stenosis of right middle cerebral artery; E11.40 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 with diabetic neuropathy, unspecified; I11.0 Hypertensive heart disease with heart failure; E04.2 Nontoxic multinodular goiter; E03.9 Hypothyroidism, unspecified; F32.A Depression, unspecified; I48.0 Paroxysmal atrial fibrillation; I65.02 Occlusion and stenosis of left vertebral artery; E78.00 Pure hypercholesterolemia, unspecified; E66.01 Morbid (severe) obesity due to excess calories; I65.22 Occlusion and stenosis of left carotid artery; G47.33 Obstructive sleep apnea (adult) (pediatric); I25.10 Atherosclerotic heart disease of native coronary artery without angina pectoris; I25.2 Old myocardial infarction; I65.1 Occlusion and stenosis of basilar artery; R29.810 Facial weakness; R13.10 Dysphagia, unspecified; R47.81 Slurred speech; N40.0 Benign prostatic hyperplasia without lower urinary tract symptoms; Z79.890 Hormone replacement therapy; Z79.01 Long term (current) use of anticoagulants; Z79.899 Other long term (current) drug therapy; Z96.41 Presence of insulin pump (external) (internal)
CPT/HCPCS: 36415; 70496; 70498; 70551; 71046; 80048; 80061; 82077; 82607; 82746; 82962; 83036; 84443; 84484; 85025; 85610; 85730; 92523; 92610; 93005; 93880; 97802; 99285; J7030; Q9967; A4216

== ENCOUNTER 2023-11-16 11:31 | Emergency (ER) | payer OTHER, SELFPAY ==
[2023-11-16 11:32] VITALS: PULSE 80; RESP 19; TEMP 36.2; O2SAT 97; BMI 47.5
--- NOTE | 2023-11-16 11:36 | CT_ITS ---
EXAM: CT HEAD WITHOUT INTRAVENOUS CONTRAST CLINICAL INDICATION: Neuro deficit, acute, stroke suspected TECHNIQUE: Multiple axial images were obtained of the head without intravenous contrast. This CT exam was performed using one or more of the following dose reduction techniques: automated exposure control, adjustment of the mA and/or kV according to patient size, and/or use of iterative reconstruction technique. COMPARISON: No relevant prior studies available. FINDINGS: BRAIN AND EXTRA-AXIAL SPACES: Chronic appearing small lacunar infarct within the right caudate nucleus. Brain attenuation is otherwise normal. Normal carvalho-white matter density differentiation. No hemorrhage or mass effect. Ventricles are normal. Posterior fossa is normal. Basilar cisterns are patent. BONES/JOINTS: Normal calvarium. SINUSES: No acute sinusitis. MASTOID AIR CELLS: Normal. Clear. CT/STROKE Brain/Head without Cont IMPRESSION: Chronic appearing right caudate nucleus lacunar infarct. Aspect score 10. Electronically Signed: Donta Duran MD at 11:51 EDT ,
--- NOTE | 2023-11-16 11:36 | EKG12_ITS ---
Test Reason : NEURO S/SX Blood Pressure : / mmHG Vent. Rate : 080 BPM Atrial Rate : 080 BPM P-R Int : 150 ms QRS Dur : 108 ms QT Int : 404 ms P-R-T Axes : 027 -14 035 degrees QTc Int : 465 ms Normal sinus rhythm Moderate voltage criteria for LVH, may be normal variant ( R in aVL , [place] product ) Inferior infarct , age undetermined Abnormal ECG Confirmed by KATHRYN MCRAE, YASH ([id number]), commissioning editor BETHEL ROONEY ([id number]) on 11/22/2023 6:14:00 AM Referred By: ROBERT Confirmed By:THIEN PERALTA MD
--- NOTE | 2023-11-16 11:37 | EDS_ITS ---
HPI History of Present Illness Chief Complaint: Neuro S/Sx Detail of Chief Complaint: Left facial droop started 11 AM about 30 minutes ago. Informant: patient and family Onset/Context/Timing Onset: Today Context: Sudden Onset Timing: Continuous Quality and Location: Positive for Left Facial Droop Current Severity: Mild Maximum Severity: Mild Associated Symptoms Associated Symptoms: Positive for Headache; Negative for Nausea, Vomiting or Chest Pain Narrative Narrative: 58-year-old male has known vascular disease including his right carotid. He had a stroke or mini stroke in September was treated at [facility] and transferred to [facility] and he was treated here on Saturday and admitted. He is on Eliquis. He does have a history of TIA and CVAs, diabetes and A-fib. He is seeing the vascular surgeon Dr. Ochoa Gonzalez for evaluation and workup of this. Currently he is on Eliquis. Prior similar symptoms: Yes Recent Illness/Hospitalization: Yes [facility] Medical History Mini stroke (~10/01/23) Wears glasses Depression Anxiety Cancer Thyroid disease Insulin dependent diabetes mellitus Arthritis History of renal disease Prostate disease Gastric reflux CPAP (continuous positive airway pressure) dependence Sleep apnea Shortness of breath on exertion History of echocardiogram History of stress test History of CHF (congestive heart failure) Cardiology follow-up encounter History of atrial fibrillation Double vision KIANNA treated with BiPAP Congestive heart failure (CHF) Low testosterone Carotid stenosis High cholesterol Vision loss of right eye Vision loss of left eye Anemia Non-smoker Atrial fibrillation Hypertension Obesity History of non-ST elevation myocardial infarction (NSTEMI) (03/28/20) TIA (transient ischemic attack) (2018) Hodgkin disease GERD (gastroesophageal reflux disease) BPH (benign prostatic hyperplasia) Hypothyroidism Essential (primary) hypertension Anxiety and depression Morbid obesity with BMI of 45.0-49.9, adult Nephrolithiasis Hyperlipidemia Diabetes mellitus, type II Home Medications ?Medication ?Instructions ?Recorded ?Last Taken ?Type levothyroxine 125 mcg tablet 125 mcg PO DAILY thyroid 05/03/15 11/16/23 History tamsulosin 0.4 mg capsule 0.4 mg PO DAILY prostate 09/08/15 11/16/23 History buspirone 10 mg tablet 10 mg PO TID PRN Anxiety 04/17/18 11/16/23 History duloxetine 60 mg capsule,delayed 60 mg PO DAILY depression 04/17/18 11/16/23 History release (Cymbalta) aspirin 81 mg chewable tablet 81 mg PO DAILY@0800 heart health 03/30/20 11/16/23 Rx 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 meter,continuous #1 ea 07/26/20 Unknown Rx (Dexcom G6 Orthodontic Assistant) pen needle, diabetic 31 gauge x #1,200 ea 12/22/20 Unknown History 08/14 pen needle, diabetic 32 gauge x #150 ea 06/01/21 Unknown Rx (BD Ultra-Fine Kiki Pen Needle) atorvastatin 80 mg tablet (Lipitor) 80 mg PO QHS cholesterol 09/04/21 11/15/23 History 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 transmitter (Dexcom #1 ea 12/29/21 Unknown Rx G6 Transmitter device) infusion set for insulin pump 10/08/22 Unknown History insulin pump controller 10/08/22 Unknown History metoprolol succinate 100 mg 100 mg PO DAILY heart #90 tabs 01/15/23 11/16/23 Rx tablet,extended release 24 hr hydrocodone-acetaminophen 5-325mg 1 tab PO BID pain 02/14/23 11/16/23 History 5mg-325mg 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 sensor (Dexcom G6 #1 ea 02/25/23 Unknown Rx Sensor device) furosemide 40 mg tablet (Lasix) 40 mg PO BID diuretic #180 tabs 04/25/23 11/16/23 Rx amlodipine 5 mg tablet 5 mg PO DAILY blood pressure #30 05/02/23 11/16/23 Rx tabs apixaban 5 mg tablet (Eliquis) 5 mg PO BID blood thinner #180 tabs 07/21/23 11/16/23 Rx fenofibrate 54 mg tablet 54 mg PO DAILY cholesterol #30 tabs 10/14/23 11/16/23 Rx insulin regular hum U-500 conc 500 75 unit (0.15 mL) continuous 11/11/23 11/16/23 Rx unit/mL subcutaneous soln (Humulin subcutaneous infusion DAILY blood R U-500 (Concentrated) Insulin) sugar #20 mL lisinopril 20 mg tablet 40 mg PO DAILY blood pressure 11/13/23 11/16/23 History clopidogrel 75 mg tablet (Plavix) 75 mg PO DAILY 21 days #21 tabs 11/14/23 Unknown Rx pantoprazole 40 mg tablet,delayed 40 mg PO BID acid reflux 30 days 11/14/23 0 11/16/23 Rx release (Protonix) #60 tabs Allergy/AdvReac Type Severity Reaction Status Date / Time metoclopramide HCl (From Allergy Severe Anaphylaxis Verified 11/13/23 19:12 Reglan) Family History Brother Heart disease Mother CVA (cerebral vascular accident) Hypertension Rheumatoid arthritis Father Diabetes Other Alcohol abuse ulcer disease Surgical History History of cardiac catheterization History of lymph node excision History of left heart catheterization (2009) Hx of nephrolithotomy with removal of calculi History of thoracentesis (2016) Social History household members: spouse and none Smoking Status: Never smoker Electronic Cigarette Use: not used second hand exposure: No alcohol intake: never substance use type: does not use what type of physical activity do you participate in: none ROS ROS ED ROS Narrative Denies recent illness. Constitutional Constitutional ED: Denies chills or fever(s) Eyes Eyes: Denies blurry vision ENT ENT ED: Denies ear pain Cardiovascular Cardiovascular: Denies chest pain Respiratory/Chest Respiratory/Chest: Denies cough or dyspnea Gastrointestinal Gastrointestinal: Denies abdominal pain Genitourinary Genitourinary ED: Denies dysuria or hematuria Musculoskeletal Musculoskeletal: Denies arthralgias Integumentary Denies abscess or Abrasions Neurologic Neurologic: Reports headache(s) Psychiatric Psychiatric: Denies anxiety or depression Endocrine Endocrinology: Denies polydipsia or polyphagia Hematologic/Lymphatic Hematologic/Lymphatic: Denies easy bleeding Allergic/Immunologic Allergic/Immunologic ED: Denies mouth swelling EXAM Physical Exam Narrative Exam Narrative: 4-year-old male vital signs stable afebrile. H EENT exam pupils are reactive light. Normal speech. Left facial droop. Neck nontender. Lungs clear to auscultation bilaterally. Heart regular rhythm rate about 80 no murmur. Chest wall ribs nontender. Abdomen soft nontender. Moving all 4 extremities. 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 Dorsi plantarflexion intact. No focal motor deficits. Neurologically is awake and alert. He is answer questions following commands. He has normal strength. He does have left facial droop for an NIH of 1. He has normal speech. Const Vital Signs: 11/16/23 11:32 11/16/23 11:40 11/16/23 11:40 Temperature 97.2 F L Temperature Source Temporal Pulse Rate 80 80 Respiratory Rate 19 H 19 H Blood Pressure 142/78 H Blood Pressure Mean 99 Pulse Ox 97 97 Oxygen Delivery Method Room Air Room Air Room Air 11/16/23 11:53 11/16/23 12:06 11/16/23 12:32 Temperature Temperature Source Pulse Rate 77 76 73 Respiratory Rate 23 H 21 H 20 H Blood Pressure 131/73 H 133/60 H 104/55 L Blood Pressure Mean 92 84 71 Pulse Ox 98 99 98 Oxygen Delivery Method Room Air Room Air Positive well nourished and well developed; Negative for cachectic, contractures or unkempt General Appearance ED: well developed and NAD; Negative for unkempt, cachectic or contractures Nutritional Appearance: Negative for cachectic HEENT Reports moist mucous membranes atraumatic; Negative for trauma Eyes PERRL and EOMs intact bilaterally Eyes Narrative: Left facial droop General Eye ED: Negative for pale conjunctiva or scleral icterus Neck no lymphadenopathy, supple and no JVD Chest Wall inspection of chest normal and palpation of chest normal Resp normal respiratory effort and clear to auscultation bilaterally Effort and Inspection: Negative for retractions Auscultation: Negative for rales, rhonchi, wheezes or diminished lung sounds Cardio no murmurs Rate: regular rate Rhythm: regular rhythm GI normal to inspection, nondistended, normoactive bowel sounds, soft to palpation, non-tender, non-distended and no masses Back/Spine no CVA tenderness Extremity normal to inspection General Extremety ED: Negative for deformity, edema or tenderness General Extremity: Negative for deformity or edema Neuro oriented x3 and CN's II-XII intact bilaterally Neuro Narrative: Left facial droop. NIH of 1. Sensorium / Orientation: alert, oriented to person, oriented to place and oriented to time; Negative for orientation impaired, confused, lethargic or stuporous Speech: speech normal Motor Exam: strength 5/5 throughout Psych mental status grossly normal Appearance: Negative for unkempt Attitude: No agitated Mood & Affect: Negative for depressed, anxious or tearful Attention / Concentration: Negative for other Skin no wounds General Skin Exam: Negative for jaundice Lesions: no lesions Rashes: no rashes Trauma: Negative for abrasion or laceration NIHSS NIHSS Initial: 1a Level of Consciousness: 0 1b LOC Questions (Score 2 if aphasic/stupor): 0 1c LOC Commands (Only score 1st attempt): 0 2 Best Gaze (If aphasic, use reflexive mvmts.): 0 3 Visual: 0 4 Facial Palsy: 2 5 Motor Arm Right (UN = amputation/fusion): 0 5 Motor Arm Left: 0 6 Motor Leg Right: 0 6 Motor Leg Left: 0 7 Limb ataxia (Only + if out of proportion): 0 8 Sensory (Aphasia/stupor=0 or 1, coma=2): 0 9 Best Language: 0 10 Dysarthria (mute, coma=2, intubated=UN): 0 11 Extinction and Inattention (only scored if +): 0 Total Score: 2 MDM MDM MDM Narrative Medical decision making narrative: 58-year-old male history of diabetes, A-fib on Eliquis and prior TIA and CVAs. Was just admitted to the hospital 3 days ago for stroke workup. He has known carotid disease on the right and sounds like posterior circulation. Half hour prior to arrival he had a left facial droop developed. Send NIH of 1-2. He will be made a stroke protocol patient. He is most likely not a TNK candidate due to his history of being on Eliquis. Thank you repeat exam unchanged at 1229 a.m. Neurologic exam no change. NIH 1-2. CT brain no acute abnormality. CTA shows a near complete occlusion of the right carotid artery which is again seen on prior. I did speak to the stroke neurologist from [facility]. He agrees with the plan of admission and repeat evaluation for surgery as soon as possible. Repeat exam at 1:00 patient's facial droop is resolved. His NIH is 0. His and daughter present in the room. Has been evaluated by [facility], our vascular surgeon here Dr. Ochoa Gonzalez and [facility]. They have all basely told him the same thing he needs a trial of Eliquis which she is on Plavix which she starts today and aspirin which she is already on. If that does not improve his symptoms then he may need surgery but they have all informed him he is at very high risk for surgery they could cause him either a stroke or even . He and his family are all very aware of this. He does not want to stay in the hospital overnight. And he will follow-up. History & Record Review Discussion w/independent historian: Patient and Family Additional record(s) reviewed:: Prior inpatient record, Prior outpatient record, Prior ED visit and Prior labs Lab Data Attestation: I reviewed the patient's lab results. Lab results narrative: CBC white count 11.6. H&H 11.3 and 37. Platelets 259. PT/INR 15/1. PTT 28. Electrolytes unremarkable gap 6. BUN and creatinine 25 and 1.37. Glucose 116. Troponin 16. Labs: Laboratory Results - last 24 hr 11/16/23 11:36 WBC 11.6 H RBC 4.71 Hgb 11.3 L Hct 37.2 L MCV 79.0 L MCH 24.0 L MCHC 30.4 L RDW Std Deviation 53.2 H RDW Coeff of Gavi 18.7 H Plt Count 259 MPV 9.3 Immature Gran % (Auto) 1.100 H Neut % (Auto) 64.9 Lymph % (Auto) 19.9 [place] % (Auto) 10.6 H Eos % (Auto) 2.8 Baso % (Auto) 0.7 Absolute Neuts (auto) 7.5 Absolute Lymphs (auto) 2.30 Nucleated RBC % 0 PT 15.6 H INR 1.2 APTT 28.5 Sodium 140 Potassium 3.9 Chloride 107 Carbon Dioxide 27.0 Anion Gap 6 BUN 25 H Creatinine 1.37 H Estim Creat Clear Calc 81.83 Est GFR (MDRD) Af Amer 68 Est GFR (MDRD) Non-Af 56 L BUN/Creatinine Ratio 18.2 Glucose 116 H Calcium 8.7 Troponin I High Sens 16 Radiography Chest X-Ray - ED: 1 View, Read by ED Physician, Heart, Lungs, Mediastinum, Bony Structures, No Acute Disease and Chronic Changes Diagnostic Testing: Clinical Impression(s) from Imaging Studies Brain CT 11/16/23 11:36 IMPRESSION: Chronic appearing right caudate nucleus lacunar infarct. Aspect score 10. Electronically Signed: Donta Duran MD at 11:51 EDT , ADDENDUM: 11/16/23 1202 IMPRESSION: Chronic appearing right caudate nucleus lacunar infarct. Aspect score 10. N.B. : The above Results were Read Back by Donta Duran MD to Armin Fermin MD, and understanding confirmed on 11/16/2023 11:55:38 (ET). Electronically Signed: Donta Duran MD at 11:51 EDT Reading Location ID and State: [facility] / [place] Tel , Service support , Head/Neck CTA 11/16/23 11:37 IMPRESSION: Stable near occlusion of the proximal right M1 segment of the MCA. Multiple stenoses of the basilar artery. Occlusion of the cervical portion of the left vertebral artery. Electronically Signed: Donta Duran MD at 12:16 EDT Reading Location ID and State: [facility] / [place] Tel , Service support , ADDENDUM: 11/16/23 1238 IMPRESSION: Stable near occlusion of the proximal right M1 segment of the MCA. Multiple stenoses of the basilar artery. Occlusion of the cervical portion of the left vertebral artery. N.B. : The above Results were Read Back by Donta Duran MD to Armin Fermin MD, and understanding confirmed on 11/16/2023 12:31:35 (ET). Electronically Signed: Donta Duran MD at 12:16 EDT , Chest X-Ray 11/16/23 12:10 IMPRESSION: No interval change. Electronically Signed: Donta Duran MD at 12:39 EDT Reading Location ID and State: [facility] / [place] Tel , Service support , Chest x-ray chronic changes. Portable single view interpreted by myself. No acute abnormality. Rhythm Strip Rhythm Strip: Sinus Rhythm Rate: 80 Ectopy: None EKG Initial EKG: Attestation: I personally reviewed and interpreted this EKG as follows: Interpretation: Sinus Rhythm and No Acute Injury Pattern Comments: Normal sinus rhythm rate 80 no acute signs of NJ or ischemia. LVH. No dysrhythmia. Discharge Plan Triage Chief Complaint: Neuro S/Sx ED Provider: Armin Fermin Dx/Rx/DC Orders Clinical Impression: Facial droop, History of TIAs, Arterial vascular disease, History of diabetes mellitus, History of atrial fibrillation, Chronic anticoagulation Instructions: TIA Dc Prescriptions: No Action (DME) Dexcom G6 Orthodontic Assistant Misc See Rx Instructions .ROUTE .MEDSUPPLY Qty: 1 0RF Rx Instructions: As directed (DME) pen needle, diabetic 31 gauge x 5/16 needle See Rx Instructions .ROUTE .MEDSUPPLY Qty: 1200 Patient Comments: use 1 PEN NEEDLE to inject MEDICATION subcutaneously as directed Rx Instructions: As directed (DME) pen needle, diabetic [BD Ultra-Fine Kiki Pen Needle] 32 gauge x 5/32 needle See Rx Instructions .ROUTE .MEDSUPPLY Qty: 150 6RF Rx Instructions: As directed (DME) infusion set for insulin pump Infusion Set See Rx Instructions .Route Rx Instructions: As directed (DME) insulin pump controller Misc See Rx Instructions .Route Rx Instructions: As directed fenofibrate 54 mg tablet 54 mg PO DAILY Qty: 30 5RF levothyroxine 125 MCG tablet 125 mcg PO DAILY tamsulosin 0.4 MG capsule 0.4 mg PO DAILY buspirone 10 MG tablet 10 mg PO TID PRN (Reason: Anxiety) Rx Instructions: pt states he usually takes 1 daily duloxetine [Cymbalta] 60 MG capsule,delayed release(DR/EC) 60 mg PO DAILY aspirin 81 MG tablet,chewable 81 mg PO DAILY@0800 0RF atorvastatin [Lipitor] 80 MG tablet 80 mg PO QHS Rx Instructions: cholesterol hydrocodone-acetaminophen 5-325 mg tablet 1 tab PO BID lisinopril 20 mg tablet 40 mg PO DAILY clopidogrel [Plavix] 75 mg tablet 75 mg PO DAILY 21 Days Qty: 21 0RF Patient Comments: PT WAS SUPPOSED TO START TODAY, 11/16/23, HASNT STARTED YET pantoprazole [Protonix] 40 MG tablet 40 mg PO BID 30 Days Qty: 60 0RF (DME) Dexcom G6 Transmitter Device See Rx Instructions .ROUTE .MEDSUPPLY Qty: 1 3RF Rx Instructions: As directed metoprolol succinate 100 mg tablet extended release 24 hr 100 mg PO DAILY Qty: 90 3RF (DME) Dexcom G6 Sensor Device See Rx Instructions .ROUTE .MEDSUPPLY Qty: 1 6RF Rx Instructions: As directed furosemide [Lasix] 40 mg tablet 40 mg PO BID Qty: 180 3RF amlodipine 5 mg tablet 5 mg PO DAILY Qty: 30 11RF Eliquis 5 mg tablet 5 mg PO BID Qty: 180 3RF Humulin R U-500 (Conc) Insulin 500 unit/mL solution 75 unit continuous subcutaneous infusion DAILY Qty: 20 5RF Patient Comments: INSULIN PUMP Primary Care Provider: Radha Khan Referrals: Radha Khan MD [Primary Care Provider] - As soon as possible Activity Restrictions/Additional Instructions: Call and follow-up with a hide states soon as possible so they can evaluate and determine if they are going to wait to see if the Plavix, Eliquis and aspirin work or if they need to proceed with surgery. Return if worse. Print Language: Cypriot Disposition Disposition: Home, Self Care
--- NOTE | 2023-11-16 11:37 | CT_ITS ---
We are attempting to reach an attending provider to discuss findings. An addendum with communication details will be sent when the communication is complete. INDICATION: Neuro deficit, acute, stroke suspected EXAMINATION: CTA HEAD - CTA Head and Neck Stroke W/ Contrast (and W/O if performed) TECHNIQUE: [place]/head CT angiogram protocol was performed following IV contrast. Routine carotid CT angiogram protocol was performed with IV contrast. NASCET criteria using the distal ICAs for comparison were used for evaluation of stenoses. 3D reconstructions were reviewed of the CT angiogram head and neck. A radiation dose optimization technique was used for this scan. IV Contrast dosage and agent: 1 cc Isovue-370 COMPARISON: CTA head and neck 11/13/2023 FINDINGS: --Anterior cerebral circulation: ACAs: No significant stenosis at the visualized segments. ACOM: Not identified MCAs: Near complete occlusion of the proximal right M1 segment again noted. Normal left MCA. --Posterior cerebral circulation: PCOMs: Small P-comm''s noted bilaterally. meter reading clerk: No significant stenosis at the visualized segments. BASILAR ARTERY: High-grade stenosis of the distal portion of the basilar artery. Additional focal area of stenosis of the proximal mid basilar artery. --Carotid and vertebral circulation: AORTIC ARCH AND BRANCHES: Normal anatomy, patent. RIGHT CCA: No occlusion, significant stenosis or dissection. RIGHT ICA: Prominent calcific plaquing at the carotid bulb with less than 50% stenosis. No occlusion, significant stenosis or dissection. LEFT CCA: No occlusion, significant stenosis or dissection. LEFT ICA: Calcific plaquing of the left carotid bulb with less than 50% stenosis. No occlusion, significant stenosis or dissection. RIGHT VERTEBRAL ARTERY: No occlusion, significant stenosis or dissection. LEFT VERTEBRAL ARTERY: Left vertebral artery is occluded with cross filling of the intracranial portion. NECK SOFT TISSUES: Small bilateral thyroid nodules again seen LUNG APICES: Pulmonary vascular congestion noted. BONES: Diffuse spondylosis of the cervical spine. CT/STROKE CTA Head AND Neck W/Con IMPRESSION: Stable near occlusion of the proximal right M1 segment of the MCA. Multiple stenoses of the basilar artery. Occlusion of the cervical portion of the left vertebral artery. Electronically Signed: Donta Duran MD at 12:16 EDT ,
[2023-11-16 11:40] VITALS: BP 142/78; PULSE 80; RESP 19; O2SAT 97
[2023-11-16 11:41] VITALS: BMI 47.5
[2023-11-16 11:45] LABS: Absolute Neutrophil Count 7.5 X10^3/uL (2.0-7.7); Basophil# 0.08 X10^3/uL; Basophil% 0.7 % (0-1); Eosinophil# 0.32 X10^3/uL; Eosinophils% 2.8 % (0-5); Hematocrit 37.2 % (40-54); Hemoglobin 11.3 g/dL (13.0-16.5); Lymphocyte % 19.9 % (19-41); Mean Corp Hgb Conc 30.4 g/dL (32-36); Mean Platelet Vol. 9.3 fl (6.2-12.0); Monocyte# 1.23 X10^3/uL; Monocyte% 10.6 % (0-10); NRBC Flagged by Analyzer 0 % (0-5); Neutrophil # 7.49 X10^3/uL (2.7-7.7); Neutrophil % 64.9 % (47-70); Platelet Count 259 K/mm3 (150-450); RBC Distribution Width CV 18.7 % (11.6-14.6); RBC Distribution Width SD 53.2 fl (35.1-43.9); Red Blood Count 4.71 M/mm3 (4.6-6.2); White Blood Count 11.6 K/mm3 (4.4-11.0)
[2023-11-16 11:53] VITALS: BP 131/73; PULSE 77; RESP 23; O2SAT 98
--- NOTE | 2023-11-16 11:55 | CM.ED ---
Social Work: Date of referral: 11/16/23 Reason for referral: Stroke Alert Referred by: Social Work Identification Patient was being transported from his room for testing just as school social worker arrived and school social worker stayed back with patient's Michaelle/LETICIA. Shortly after, patient's daughter Clarisse Chris arrived. Brief history that was provided by patient's daughter: Patient's daughter stated that patient first has a stroke on 10/01/23 while at the [facility] and was then here at [facility] on 11/13/23 for another stroke. Patient was admitted overnight and discharged home the following day. On this date, Tia was at the [facility] with patient where they had been from about 8am-11am when patient's daughter began to notice that patient's mouth was drooping and his left arm was weak so much so that he had to lift it up and had to use his right hand to wipe his mouth. Patient then brought to the ED. Both patient's and daughter were visibly shaken and tearful at times. muffle worker provided emotional support and made sure neither needed anything. Patient arrived back in the room shortly after and appeared to be in ok spirits. Patient was talking with his family and being comforted by them. No other support needed at this time. Nely Weiner, DISPLAY CARD WRITER, CUSTOM WOOD STAIR BUILDER
[2023-11-16 11:58] LABS: International Normalized Ratio 1.2; Partial Thromboplast Time 28.5 Seconds (24.1-36.2); Prothrombin Time (Protime)PT. 15.6 SECONDS (11.7-14.9)
[2023-11-16 12:01] LABS: Anion Gap 6 (5-15); BUN 25 mg/dL (7-18); BUN/Creat Ratio 18.2 RATIO (10-20); Calcium,Total 8.7 mg/dL (8.5-10.1); Chloride 107 mmol/L (98-107); Creatinine, Serum 1.37 mg/dL (0.70-1.30); EST Glomerular Filtration Rate 56 mL/min (>60); Est Glom Filt Rate - Afr Amer 68 mL/min (>60); Estimated Creatinine Clearance 81.83 ml/min; Glucose 116 mg/dL (74-106); Potassium 3.9 mmol/L (3.5-5.1); Sodium Level 140 mmol/L (136-145); Troponin-I HS 16 pg/mL (3.0-78.0)
[2023-11-16 12:06] VITALS: BP 133/60; PULSE 76; RESP 21; O2SAT 99
--- NOTE | 2023-11-16 12:07 | ED.RN ---
PER DR. JONES, [facility] [[email or web address]]S
--- NOTE | 2023-11-16 12:10 | RAD_ITS ---
EXAM: XR CHEST, 1 VIEW CLINICAL INDICATION: Neuro deficit, acute, stroke suspected TECHNIQUE: Frontal view of the chest. COMPARISON: XR Chest dated 11/13/2023 FINDINGS: LUNGS AND PLEURAL SPACES: Scattered parenchymal lung densities which may represent acute or chronic inflammatory lung disease. No pleural effusion or pneumothorax. HEART: Normal heart size. MEDIASTINUM: No mediastinal or hilar mass. BONES/JOINTS: No acute abnormality. RAD/Chest 1 View IMPRESSION: No interval change. Electronically Signed: Donta Duran MD at 12:39 EDT ,
[2023-11-16 12:32] VITALS: BP 104/55; PULSE 73; RESP 20; O2SAT 98
[2023-11-16 13:16] VITALS: BP 167/77; PULSE 68; RESP 21; O2SAT 98
[2023-11-18 09:01] LABS: Bedside Glucose 103 mg/dL (74-106)
== END 2023-11-16 13:18 | disposition home or self-care (01) ==
PROVIDERS: Emergency Provider Emergency Medicine; PCP Family Medicine; Visit Provider Emergency Medicine
DX: R29.810 Facial weakness (principal); I11.0 Hypertensive heart disease with heart failure; I50.9 Heart failure, unspecified; I48.91 Unspecified atrial fibrillation; E11.9 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 without complications; Z79.4 Long term (current) use of insulin; E78.00 Pure hypercholesterolemia, unspecified; Z79.01 Long term (current) use of anticoagulants; Z86.73 Personal history of transient ischemic attack (TIA), and cerebral infarction without residual deficits; G47.33 Obstructive sleep apnea (adult) (pediatric); Z99.89 Dependence on other enabling machines and devices; I25.2 Old myocardial infarction; E03.9 Hypothyroidism, unspecified; Z79.899 Other long term (current) drug therapy; N40.0 Benign prostatic hyperplasia without lower urinary tract symptoms; F41.9 Anxiety disorder, unspecified; F32.A Depression, unspecified; Z79.82 Long term (current) use of aspirin; Z79.02 Long term (current) use of antithrombotics/antiplatelets; I77.9 Disorder of arteries and arterioles, unspecified
CPT/HCPCS: 70450; 70496; 70498; 71045; 80048; 82962; 84484; 85025; 85610; 85730; 93005; 96374; 99285; J7030; Q9967; A4216

== ENCOUNTER → 2023-12-12 | Outpatient (CLI) | payer OTHER, SELFPAY ==
[2023-12-12 15:24] LABS: Absolute Neutrophil Count 5.8 X10^3/uL (2.0-7.7); Basophil# 0.07 X10^3/uL; Basophil% 0.8 % (0-1); Eosinophil# 0.24 X10^3/uL; Eosinophils% 2.8 % (0-5); Hematocrit 33.3 % (40-54); Lymphocyte % 19.6 % (19-41); Mean Corpuscular Hgb 23.9 pg (27.0-32.0); Mean Corpuscular Volume 79.7 fL (80-94); Mean Platelet Vol. 9.9 fl (6.2-12.0); Monocyte# 0.86 X10^3/uL; Monocyte% 9.9 % (0-10); NRBC Flagged by Analyzer 0 % (0-5); Neutrophil # 5.75 X10^3/uL (2.7-7.7); Neutrophil % 66.4 % (47-70); Platelet Count 274 K/mm3 (150-450); RBC Distribution Width CV 18.5 % (11.6-14.6); RBC Distribution Width SD 52.7 fl (35.1-43.9); Red Blood Count 4.18 M/mm3 (4.6-6.2); White Blood Count 8.7 K/mm3 (4.4-11.0)
[2023-12-12 16:01] LABS: ALB/GLOB Ratio 0.7 RATIO (0.9-2.4); AST(SGOT) 27 U/L (15-37); Alanine Aminotransfer ALT/SGPT 25 U/L (16-61); Albumin, Serum 3.2 g/dL (3.2-5.0); Alkaline Phosphatase 79 U/L (45-117); Anion Gap 10 (5-15); BUN 26 mg/dL (7-18); BUN/Creat Ratio 21.7 RATIO (10-20); Calcium,Total 9.3 mg/dL (8.5-10.1); Chloride 110 mmol/L (98-107); EST Glomerular Filtration Rate 66 mL/min (>60); Est Glom Filt Rate - Afr Amer 79 mL/min (>60); Globulin 4.9 g/dL (2.2-4.2); Glucose 155 mg/dL (74-106); Magnesium 2.1 mg/dL (1.6-2.6); Potassium 3.9 mmol/L (3.5-5.1); Protein, Total 8.1 g/dL (6.4-8.2); Sodium Level 139 mmol/L (136-145); T4 Free Direct 1.29 ng/dL (0.76-1.46)
[2023-12-12 16:13] LABS: BNP,B-Type NATRIURETIC PEPTIDE 92.2 pg/mL (0-100)
== END | disposition home or self-care (01) ==
LOC: LAB 14:39
PROVIDERS: PCP Family Medicine; Referring Provider Nurse Practitioner Family; Visit Provider Nurse Practitioner Family
DX: R06.02 Shortness of breath (principal); N18.31 Chronic kidney disease, stage 3a; R00.0 Tachycardia, unspecified
CPT/HCPCS: 36415; 80053; 83735; 83880; 84439; 84443; 85025

== ENCOUNTER → 2024-01-01 | Outpatient (CLI) | payer OTHER, SELFPAY ==
--- NOTE | 2024-01-01 18:11 | STRESSREP ---
Stress Test Report Pharmacologic myocardial perfusion stress test. 58-year-old man with a history of dyspnea Resting EKG demonstrates sinus rhythm with a rate of 73 bpm. Resting blood pressure is 130/72 mmHg. 0.4 mg of regadenoson was infused per usual protocol followed by rapid intravenous saline flush injection. Continuous EKG monitoring was performed. The maximum heart rate was 77 bpm which was 48% of max impacted heart rate the maximum workload was 1 metabolic equivalent. At rest there were no ST or T wave changes noted to suggest ischemia and at peak infusion nonspecific ST changes were noted which did not meet the criteria for ischemia. No clinical angina is noted. The final blood pressure was 122/64 mmHg. Myocardial perfusion protocol. 14.8 mCi of technetium 99m sestamibi was injected at rest. 0.4 mg of regadenoson was infused per usual protocol. At peak infusion 45 mCi of technetium 99m sestamibi was injected stress images were obtained stress and rest images were reconstructed and compared in the short axis vertical long and horizontal long axis. Gated images were also obtained. Perfusion SPECT analysis: Review of the stress images demonstrate normal uptake of tracer noted in all areas of the myocardium. The resting images similar demonstrated normal uptake of tracer noted in all areas of the myocardium. No areas of reversibility are noted to suggest ischemia and no previous infarct is noted. Gated SPECT analysis: The gated ejection fraction is 60%. Conclusion: Normal pharmacologic myocardial perfusion stress test. Preserved ejection fraction.
== END | disposition home or self-care (01) ==
LOC: CVS 06:01
PROVIDERS: PCP Family Medicine; Referring Provider Nurse Practitioner Family; Visit Provider Nurse Practitioner Family
DX: I50.32 Chronic diastolic (congestive) heart failure (principal); I25.10 Atherosclerotic heart disease of native coronary artery without angina pectoris; R06.02 Shortness of breath
CPT/HCPCS: 78452; 93017; A9500; A4216; J2785

== ENCOUNTER → 2024-01-10 | Outpatient (CLI) | payer OTHER, SELFPAY ==
[2024-01-10 15:12] LABS: Absolute Lymphocyte Count 1.87 X10^3/uL (0.83-4.51); Absolute Neutrophil Count 5.7 X10^3/uL (2.0-7.7); Basophil# 0.07 X10^3/uL; Basophil% 0.8 % (0-1); Eosinophil# 0.23 X10^3/uL; Eosinophils% 2.6 % (0-5); Hemoglobin 10.7 g/dL (13.0-16.5); Lymphocyte # 1.87 X10^3/ul (0.83-4.51); Lymphocyte % 21.4 % (19-41); Mean Corp Hgb Conc 28.9 g/dL (32-36); Mean Corpuscular Hgb 22.8 pg (27.0-32.0); Mean Corpuscular Volume 78.7 fL (80-94); Mean Platelet Vol. 10.2 fl (6.2-12.0); Monocyte# 0.86 X10^3/uL; Monocyte% 9.9 % (0-10); NRBC Flagged by Analyzer 0 % (0-5); Neutrophil # 5.66 X10^3/uL (2.7-7.7); Platelet Count 306 K/mm3 (150-450); RBC Distribution Width CV 17.3 % (11.6-14.6); RBC Distribution Width SD 49.7 fl (35.1-43.9); Reticulocyte Count 2.36 % (0.5-1.5); White Blood Count 8.7 K/mm3 (4.4-11.0)
[2024-01-10 15:43] LABS: Vitamin B12 510 pg/mL (211-911)
[2024-01-10 15:50] LABS: Ferritin 28 ng/mL (26-388); Iron 31 ug/dL (65-175); Iron Binding Capacity,Total 445 ug/dL (250-450)
== END | disposition home or self-care (01) ==
LOC: MTLAB 12:36
PROVIDERS: PCP Family Medicine; Referring Provider Family Medicine; Visit Provider Family Medicine
DX: D64.9 Anemia, unspecified (principal)
CPT/HCPCS: 36415; 82607; 82728; 82746; 83540; 83550; 85025; 85045

== ENCOUNTER 2024-01-20 22:01 | Inpatient (IN) | payer OTHER, SELFPAY ==
[2024-01-20 22:04] VITALS: BP 175/80; BP 202/94; PULSE 84; PULSE 98; RESP 20; TEMP 36.6; O2SAT 91; BMI 47.9
[2024-01-20 22:26] LABS: Absolute Lymphocyte Count 1.71 X10^3/uL (0.83-4.51); Basophil# 0.07 X10^3/uL; Basophil% 0.7 % (0-1); Eosinophil# 0.29 X10^3/uL; Eosinophils% 2.9 % (0-5); Hematocrit 31.1 % (40-54); Hemoglobin 9.5 g/dL (13.0-16.5); Lymphocyte # 1.71 X10^3/ul (0.83-4.51); Lymphocyte % 16.8 % (19-41); Mean Corp Hgb Conc 30.5 g/dL (32-36); Mean Corpuscular Hgb 23.4 pg (27.0-32.0); Mean Corpuscular Volume 76.6 fL (80-94); Mean Platelet Vol. 9.5 fl (6.2-12.0); Monocyte# 1.08 X10^3/uL; Monocyte% 10.6 % (0-10); NRBC Flagged by Analyzer 0 % (0-5); Neutrophil # 6.95 X10^3/uL (2.7-7.7); Neutrophil % 68.5 % (47-70); Platelet Count 267 K/mm3 (150-450); RBC Distribution Width CV 17.1 % (11.6-14.6); RBC Distribution Width SD 47.4 fl (35.1-43.9); Red Blood Count 4.06 M/mm3 (4.6-6.2); White Blood Count 10.2 K/mm3 (4.4-11.0)
[2024-01-20] MEDS: Ipratropium/Albuterol Sulfate 3 ML AMPUL.NEB INHALATION (22:47)
[2024-01-20 22:48] VITALS: PULSE 88; RESP 18
--- NOTE | 2024-01-20 22:49 | EKG12_ITS ---
Test Reason : SOB Blood Pressure : / mmHG Vent. Rate : 096 BPM Atrial Rate : 096 BPM P-R Int : 144 ms QRS Dur : 110 ms QT Int : 376 ms P-R-T Axes : 043 -08 130 degrees QTc Int : 475 ms Normal sinus rhythm Left ventricular hypertrophy with repolarization abnormality ( R in aVL , Miguel product , Romhilt-E stes ) Inferior infarct (cited on or before 19-JUN-2021) Abnormal ECG Confirmed by CARO MCRAE, ANGELA ([id number]), purchase request editor JULIAN COSTELLO ([id number]) on 01/22/2024 10:06:07 AM Referred By: Eduin Umaña Confirmed By:ANGELA ELIZONDO MD
[2024-01-20 22:57] LABS: Anion Gap 6 (5-15); BUN 29 mg/dL (7-18); BUN/Creat Ratio 23.4 RATIO (10-20); Chloride 107 mmol/L (98-107); Creatinine, Serum 1.24 mg/dL (0.70-1.30); EST Glomerular Filtration Rate 63 mL/min (>60); Est Glom Filt Rate - Afr Amer 76 mL/min (>60); Estimated Creatinine Clearance 90.85 ml/min; Glucose 196 mg/dL (74-106); Potassium 4.3 mmol/L (3.5-5.1); Sodium Level 135 mmol/L (136-145); Troponin-I HS 24 pg/mL (3.0-78.0)
[2024-01-20 23:03] VITALS: RESP 24; O2SAT 94; O2SAT 95
[2024-01-20 23:03] LABS: BNP,B-Type NATRIURETIC PEPTIDE 130.8 pg/mL (0-100)
[2024-01-20 23:04] VITALS: O2SAT 93
[2024-01-20 23:09] LABS: Magnesium 1.7 mg/dL (1.6-2.6)
--- NOTE | 2024-01-20 23:25 | RAD_ITS ---
INDICATION: cough EXAMINATION/TECHNIQUE: X-RAY - XR Chest 2 Views COMPARISON: Prior study dated: 11/16/2023 FINDINGS: LINES/DEVICES: None. LUNGS: Mild interstitial infiltrates bilaterally appear similar but slightly increased compared to the prior. No consolidation. No pneumothorax. MEDIASTINUM: Unremarkable. CARDIAC SILHOUETTE: Not enlarged. BONES AND SOFT TISSUES: No acute abnormalities. RAD/Chest PA and Lateral IMPRESSION: Increased bilateral interstitial infiltrates which may be inflammatory pneumonitis or mild edema superimposed on chronic changes. Electronically Signed: Daniela Verduzco MD at 23:58 EDT ,
[2024-01-20] MEDS: cloNIDine HCl 0.1 MG Tablet PO (23:40)
[2024-01-20] MEDS: Labetalol (Prefilled) 20 MG/4 ML Vial 10 MG IV (23:40)
[2024-01-20 23:44] VITALS: BP 213/98; PULSE 105; RESP 20; O2SAT 88
[2024-01-20 23:53] VITALS: PULSE 100; RESP 30; O2SAT 96
[2024-01-21] VITALS (13 sets, daily range): BP systolic 121–168; BP diastolic 48–97; PULSE 76–104; RESP 16–35; TEMP 36.2–36.8; O2SAT 92–98; BMI 47.6
--- NOTE | 2024-01-21 02:45 | CT_ITS ---
STUDY: CTA CHEST REASON FOR EXAM: Male, 58 years old. hypoxia RADIATION DOSAGE (If Supplied By Facility): CTDIvol = ( 13.77 ) mGy, DLP = ( 519.83 ) mGycm TECHNIQUE: The examination was performed with the intravenous administration of IV 100mL Isovue-370. Post-processing of the angiographic images was performed, with multiplanar reformation and 3D reconstruction. The protocol utilizes one or more of the following dose reduction techniques: automated exposure control, adjustment of mA and/or kV according to patient size,and/or use of iterative reconstruction technique. COMPARISON: Prior study dated: 09/09/2015 FINDINGS: LUNGS: Scattered groundglass opacities throughout the lungs. No consolidation. PLEURA: No pleural effusion. No pneumothorax. PULMONARY VESSELS: No pulmonary emboli identified. MEDIASTINUM: Several mildly enlarged lymph nodes in the mediastinum and hilar regions. Largest node subcarinal 1.2 cm in short axis.. HEART: Not enlarged. Coronary artery calcifications are noted. AORTA/GREAT VESSELS: Thoracic aorta is normal caliber. No aneurysm or dissection. UPPER ABDOMEN: Small gallstones in the gallbladder. BONES/SOFT TISSUES: No acute findings. OTHER: Thyroid nodule 1.8 cm inferior left lobe extending into the superior mediastinum with associated calcification. CT/CTA Chest W/WO Contrast IMPRESSION: No evidence of pulmonary emboli. Scattered groundglass opacities throughout the lungs nonspecific may be consistent with viral pneumonitis. Mediastinal and hilar adenopathy most likely reactive. CT chest follow-up recommended in 8-12 weeks to confirm resolution of these findings. Thyroid nodule. Nonemergent thyroid ultrasound recommended. Electronically Signed: Daniela Verduzco MD at 5:16 EDT ,
--- NOTE | 2024-01-21 02:47 | PCM.HP.STD ---
[facility] - General General Date of Admission: 01/21/24 Date of Service: 01/21/24 Chief Complaint: SOB and Hypoxia. 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 Dobbs of vascular surgery, recent NST on 01/01/2024 which was negative for ischemia with an estimated LVEF ~60%, history of Hodgkin's Lymphoma; currently in remission after chemotherapy and radiation, history of renal calculi, history of thoracentesis (2015), history of peripheral vestibulopathy; with intermittent vertigo, history of testosterone deficiency, BPH; on Tamsulosin, listed allergy to Metoclopramide (anaphylaxis), depression with anxiety, GERD and OA; with chronic pain on scheduled hydrocodone/APAP BID who presents to [facility] ER complaining of SOB and hypoxia. Mr. Leos reports his symptoms began approximately 2-3 days prior to admission with the gradual-onset of ALFORD that progressively worsened to SOB at rest. He states several of his family members have recently become ill with a vital URI just prior to him also becoming sick. Then on January 20, 2024 he accompanied his to a procedure here in the hospital and he noted severe ALFORD and east fatigability that was new and concerning. Then later on in the evening he noted his oxygen saturation was ~80% on RA so he decided to come in for further evaluation and treatment. He denies associated fever, chills, nausea, vomiting, diarrhea, constipation, chest pain or palpitations. In the ER he was noted to have a CXR positive for bilateral infiltrates consistent with suspected Community Acquired Pneumonia with clinical evidence of Uncontrolled Hypertension of 202/94 mmHg present on admission complicated by Acute Respiratory Insufficiency and he was then admitted to the PCU for ongoing care for a stay that is expected to extend beyond 2 midnights. [facility] Medical History Mini stroke (~10/01/23) Wears glasses Depression Anxiety Cancer Thyroid disease Insulin dependent diabetes mellitus Arthritis History of renal disease Prostate disease Gastric reflux CPAP (continuous positive airway pressure) dependence Sleep apnea Shortness of breath on exertion History of echocardiogram History of stress test History of CHF (congestive heart failure) Cardiology follow-up encounter History of atrial fibrillation Double vision KIANNA treated with BiPAP Congestive heart failure (CHF) Low testosterone Carotid stenosis High cholesterol Vision loss of right eye Vision loss of left eye Anemia Non-smoker Atrial fibrillation Hypertension Obesity History of non-ST elevation myocardial infarction (NSTEMI) (03/28/20) TIA (transient ischemic attack) (2018) Hodgkin disease GERD (gastroesophageal reflux disease) BPH (benign prostatic hyperplasia) Hypothyroidism Essential (primary) hypertension Anxiety and depression Morbid obesity with BMI of 45.0-49.9, adult Nephrolithiasis Hyperlipidemia Diabetes mellitus, type II Home Medications ?Medication ?Instructions ?Recorded ?Last Taken ?Type levothyroxine 125 mcg tablet 125 mcg PO DAILY thyroid 05/03/15 11/16/23 History tamsulosin 0.4 mg capsule 0.4 mg PO DAILY prostate 09/08/15 11/16/23 History buspirone 10 mg tablet 10 mg PO TID PRN Anxiety 04/17/18 11/16/23 History duloxetine 60 mg capsule,delayed 60 mg PO DAILY depression 04/17/18 11/16/23 History release (Cymbalta) 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 meter,continuous #1 ea 07/26/20 Unknown Rx (Dexcom G6 Civil Preparedness Coordinator) pen needle, diabetic 31 gauge x #1,200 ea 12/22/20 Unknown History 08/14 pen needle, diabetic 32 gauge x #150 ea 06/01/21 Unknown Rx (BD Ultra-Fine Kiki Pen Needle) atorvastatin 80 mg tablet (Lipitor) 80 mg PO QHS cholesterol 09/04/21 11/15/23 History 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 transmitter (Dexcom #1 ea 12/29/21 Unknown Rx G6 Transmitter device) infusion set for insulin pump 10/08/22 Unknown History insulin pump controller 10/08/22 Unknown History metoprolol succinate 100 mg 100 mg PO DAILY heart #90 tabs 01/15/23 11/16/23 Rx tablet,extended release 24 hr hydrocodone-acetaminophen 5-325mg 1 tab PO BID pain 02/14/23 11/16/23 History 5mg-325mg 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 sensor (Dexcom G6 #1 ea 02/25/23 Unknown Rx Sensor device) furosemide 40 mg tablet (Lasix) 40 mg PO BID diuretic #180 tabs 04/25/23 11/16/23 Rx apixaban 5 mg tablet (Eliquis) 5 mg PO BID blood thinner #180 tabs 07/21/23 11/16/23 Rx insulin regular hum U-500 conc 500 75 unit (0.15 mL) continuous 11/11/23 11/16/23 Rx unit/mL subcutaneous soln (Humulin subcutaneous infusion DAILY blood R U-500 (Concentrated) Insulin) sugar #20 mL lisinopril 20 mg tablet 40 mg PO DAILY blood pressure 11/13/23 11/16/23 History aspirin 325 mg tablet 325 mg PO DAILY 11/27/23 Unknown History empagliflozin 25 mg tablet 25 mg PO DAILY #30 tabs 11/27/23 Unknown Rx (Jardiance) fenofibrate 54 mg tablet 54 mg PO DAILY cholesterol 11/27/23 Unknown History clopidogrel 75 mg tablet (Plavix) 75 mg PO DAILY 21 days #30 tabs 12/06/23 Unknown Rx pantoprazole 40 mg tablet,delayed 40 mg PO BID acid reflux 30 days 01/14/24 Unknown Rx release (Protonix) #60 tabs Allergy/AdvReac Type Severity Reaction Status Date / Time metoclopramide HCl (From Allergy Severe Anaphylaxis Verified 01/20/24 22:06 Reglan) Family History Brother Heart disease Mother CVA (cerebral vascular accident) Hypertension Rheumatoid arthritis Father Diabetes Other Alcohol abuse ulcer disease Surgical History History of cardiac catheterization History of lymph node excision History of left heart catheterization (2009) Hx of nephrolithotomy with removal of calculi History of thoracentesis (2016) Social History household members: spouse and none Smoking Status: Never smoker Electronic Cigarette Use: not used second hand exposure: No alcohol intake: never substance use type: does not use what type of physical activity do you participate in: none ROS ROS Narrative Review of Systems: Constitutional: Vital Signs Vital Signs Vital Signs: 01/20/24 22:04 01/20/24 22:04 01/20/24 22:48 Temperature 97.9 F Temperature Source Temporal Pulse Rate 98 84 88 Respiratory Rate 20 H 18 Respiratory Effort Respiratory Depth Respiratory Pattern Blood Pressure 202/94 H 175/80 H Blood Pressure Mean 130 111 Pulse Ox 91 Oxygen Delivery Method Room Air Room Air Oxygen Flow Rate (L/min) 01/20/24 23:03 01/20/24 23:03 01/20/24 23:04 Temperature Temperature Source Pulse Rate Respiratory Rate 24 H Respiratory Effort Short of Breath Respiratory Depth Normal Respiratory Pattern Tachypnea Blood Pressure Blood Pressure Mean Pulse Ox 95 94 Oxygen Delivery Method Room Air Room Air Room Air Oxygen Flow Rate (L/min) 01/20/24 23:44 01/20/24 23:53 01/21/24 00:00 Temperature Temperature Source Pulse Rate 105 H 100 102 H Respiratory Rate 20 H 30 H 35 H Respiratory Effort Respiratory Depth Respiratory Pattern Blood Pressure 213/98 H 168/72 H Blood Pressure Mean 136 99 Pulse Ox 88 96 Oxygen Delivery Method Nasal Cannula Oxygen Flow Rate (L/min) 2 01/21/24 00:15 01/21/24 01:05 01/21/24 02:38 Temperature 98.2 F Temperature Source Pulse Rate 103 H 104 H 102 H Respiratory Rate 31 H 18 28 H Respiratory Effort Respiratory Depth Respiratory Pattern Blood Pressure 127/77 H 149/76 H 137/97 H Blood Pressure Mean 92 100 110 Pulse Ox 93 94 93 Oxygen Delivery Method Nasal Cannula Oxygen Flow Rate (L/min) 2 Weight Weight: 325 lb Body Mass Index (BMI) 47.9 Physical Exam Const alert, oriented x3 and no apparent distress Constitutional Narrative: Morbidly obese with patient dyspneic in appearance. General Appearance: cooperative HEENT normocephalic, head/scalp atraumatic, hearing grossly normal bilaterally and moist oral mucous membranes Eyes PERRL and EOMs intact bilaterally Neck no lymphadenopathy and supple Resp Resp Narrative: Diminished breath sounds throughout with bibasilar rales. Auscultation: rales Cardio regular rate and regular rhythm Cardio Narrative: Sinus tachyacrdia noted. GI normal to inspection, nondistended, normoactive bowel sounds, soft to palpation, non-tender and non-distended GI Narrative: Morbidly obese. Extremity normal to inspection, full ROM and no clubbing, cyanosis or edema Skin Skin Narrative: Patient has no evidence of rash, abscess or jaundice. Neuro oriented x3, CN's II-XII intact bilaterally, moves all extremities and no focal motor deficits Sensorium / Orientation: awake, alert, oriented to person, oriented to place and oriented to time Speech: speech normal Psych affect normal Results Medical Records Data Attestation: I reviewed the patient's medical records Lab / Micro Data Attestation: I reviewed the patient's lab results. 01/20/24 22:15 01/20/24 22:15 Labs: Laboratory Results - last 24 hr 01/20/24 22:15: WBC 10.2, RBC 4.06 L, Hgb 9.5 L, Hct 31.1 L, MCV 76.6 L, MCH 23.4 L, MCHC 30.5 L, RDW Std Deviation 47.4 H, RDW Coeff of Gavi 17.1 H, Plt Count 267, MPV 9.5, Immature Gran % (Auto) 0.500, Neut % (Auto) 68.5, Lymph % (Auto) 16.8 L, Ch[place]ot % (Auto) 10.6 H, Eos % (Auto) 2.9, Baso % (Auto) 0.7, Absolute Neuts (auto) 7.0, Absolute Lymphs (auto) 1.71, Nucleated RBC % 0, Sodium 135 L, Potassium 4.3, Chloride 107, Carbon Dioxide 22.0, Anion Gap 6, BUN 29 H, Creatinine 1.24, Estim Creat Clear Calc 90.85, Est GFR (MDRD) Af Amer 76, Est GFR (MDRD) Non-Af 63, BUN/Creatinine Ratio 23.4 H, Glucose 196 H, Calcium 9.0, Magnesium 1.7, Troponin I High Sens 24, B-Natriuretic Peptide 130.8 H Micro: Microbiology 01/20/24 22:52 Mucosa - Nose SARS-CoV-2, Influenza & RSV (PCR) - Final Imaging Radiology Impression Chest X-Ray 01/20/24 23:25 IMPRESSION: Increased bilateral interstitial infiltrates which may be inflammatory pneumonitis or mild edema superimposed on chronic changes. Electronically Signed: Daniela Verduzco MD at 23:58 EDT , [facility] [address] [place] [address] [id number] CTA Chest W/WO Contrast MR#: [id number] Acct: [id number] Name: KRUNAL LEOS Rep #: [id number] : 1965 M 58 From: Daniela Verduzco MD PCP: Dr. Radha Khan MD Status: ADM IN Study: CTA Chest W/WO Contrast Date of Exam: 01/21/24 Exam# [id number] Ordering Dr: Juan Diego Davis DO STUDY: CTA CHEST REASON FOR EXAM: Male, 58 years old. hypoxia RADIATION DOSAGE (If Supplied By Facility): CTDIvol = ( 13.77 ) mGy, DLP = ( 519.83 ) mGycm TECHNIQUE: The examination was performed with the intravenous administration of IV 100mL Isovue-370. Post-processing of the angiographic images was performed, with multiplanar reformation and 3D reconstruction. The protocol utilizes one or more of the following dose reduction techniques: automated exposure control, adjustment of mA and/or kV according to patient size,and/or use of iterative reconstruction technique. COMPARISON: Prior study dated: 09/09/2015 FINDINGS: LUNGS: Scattered groundglass opacities throughout the lungs. No consolidation. PLEURA: No pleural effusion. No pneumothorax. PULMONARY VESSELS: No pulmonary emboli identified. MEDIASTINUM: Several mildly enlarged lymph nodes in the mediastinum and hilar regions. Largest node subcarinal 1.2 cm in short axis.. HEART: Not enlarged. Coronary artery calcifications are noted. AORTA/GREAT VESSELS: Thoracic aorta is normal caliber. No aneurysm or dissection. UPPER ABDOMEN: Small gallstones in the gallbladder. BONES/SOFT TISSUES: No acute findings. OTHER: Thyroid nodule 1.8 cm inferior left lobe extending into the superior mediastinum with associated calcification. CT/CTA Chest W/WO Contrast IMPRESSION: No evidence of pulmonary emboli. Scattered groundglass opacities throughout the lungs nonspecific may be consistent with viral pneumonitis. Mediastinal and hilar adenopathy most likely reactive. CT chest follow-up recommended in 8-12 weeks to confirm resolution of these findings. Thyroid nodule. Nonemergent thyroid ultrasound recommended. Electronically Signed: Daniela Verduzco MD at 5:16 EDT , CC: Dr. Radha Khan MD; Juan Diego Davis DO ~ Camera Tuning Engineer: Signed Assessment & Plan Assessment/Plan (1) Pneumonia: QUALIFIERS: Laterality: bilateral Lung location: unspecified part of lung Pneumonia type: due to unspecified organism Qualified Code(s): J18.9 - Pneumonia, unspecified organism (2) Uncontrolled hypertension: (3) Respiratory insufficiency: (4) Morbid obesity with BMI of 45.0-49.9, adult: (5) KIANNA (obstructive sleep apnea): PLAN: Plan 1. Community Acquired Pneumonia after very recent exposure to several family members with a viral respiratory illness - Admit to PCU. Continue empiric IV Rocephin and IV Azithromycin begun in the ER and await culture and sensitivity data. Check urinary antigens to Streptococcus pneumonia and Legionella spp. Give Tylenol prn for [id number] (level 1-5/10) pain or fever. Give IV Morphine prn for severe (level 6-10/10) pain. 2. Uncontrolled Hypertension of 202/94 mmHg present on admission complicating #1 - Continue home regimen as previous plus give hydralazine IV prn for systolic blood pressure > 160 mmHg. 3. Mild AE of Chronic diastolic CHF; with preserved LVEF evidenced by congestion on CXR and elevated BNP of 138 pg/mL present on admission compounding #1 & #2 - Give Lasix 40 mg IV once with supplemental KCl and magnesium. Serialize troponin. 4. Acute Respiratory Insufficiency arising from #1 - #3 - Wean supplemental oxygen as tolerated. 5. Morbid obesity; with BMI of 48 this admission plus KIANNA; on BiPAP adding to the medical complexity of #1 - #4 - Weight loss will be recommended. Resume nocturnal BiPAP as previous. Check TSH. This complicates his case and may hamper his recovery. 6. History of recurrent TIA's and ischemic Right Frontal CVA with Left facial droop and slurred speech; with recent admission here from 11/13/2023 to 11/14/2023 while on Eliquis and ECASA followed by another CVA on 11/16/2023 that occurred before he was able to start Plavix adding to the burden of disease in #1 - #5 - Noted. Continue BASA, Plavix and Eliquis as before. 7. Recent NST on 01/01/2024 which was negative for ischemia with an estimated LVEF ~60% - Noted. 8. Hyperlipidemia - Resume stain as before. 9. Hypothyroidism; with history of multiple thyroid nodules - Noted. Maintain current dose of Levothyroxine and check TSH. 10. DM-2; of unknown control on insulin pump (since 2022) with diabetic neuropathy and history of nonproliferative diabetic retinopathy - ADA/cardiac diet. FSBS q. AC/HS plus SSI. Check HgbA1c to objectively evaluate quality of diabetic control. 11. CAD; s/p NSTEMI (2019) - Noted. 12. History of PAF; on Eliquis and metoprolol - Continue home regimen as previous. 13. History of ~70% Left common carotid artery stenosis; (with no plans for intervention until ~90% blockage) followed by Dr. Dobbs of vascular surgery - Noted. 14. History of Hodgkin's Lymphoma; currently in remission after chemotherapy and radiation - Noted. 15. History of renal calculi - Noted. 16. History of thoracentesis (2016) - Noted. 17. History of peripheral vestibulopathy; with intermittent vertigo - Stable. 18. History of testosterone deficiency - Noted. 19. BPH; on Tamsulosin - Continue Tamsulosin as previous. 20. Depression with anxiety - Maintain current treatment. 21. GERD - Resume current PPI BID. 22. OA; with chronic pain on prn hydrocodone/APAP - Noted. Continue scheduled oxycodone/APAP BID as before. 23. Listed allergy to Metoclopramide (anaphylaxis) - Noted. 24. DVT prophylaxis - Patient already on Eliquis for #12 which will be continued. Total time: Approximately (but not less than) 75 minutes. Charges/Coding Visit Charges Inpatient E&M: 97628 Init Hosp L3
--- NOTE | 2024-01-21 02:56 | EDS_ITS ---
HPI History of Present Illness Chief Complaint: Shortness of Breath Informant: patient and family Narrative Narrative: Patient is a 58-year-old male with past medical history of hypertension hyperlipidemia paroxysmal A-fib and recurrent stroke currently on aspirin Plavix and Eliquis. He states that multiple people at home have been sick with congestion and cough symptoms. He states he has had similar symptoms for the past 2 or 3 days. He states tonight he felt short of breath and checked a home pulse ox and it was approximately 80%. Secondary to the low value he presents for evaluation. [facility] Medical History Mini stroke (~10/01/23) Wears glasses Depression Anxiety Cancer Thyroid disease Insulin dependent diabetes mellitus Arthritis History of renal disease Prostate disease Gastric reflux CPAP (continuous positive airway pressure) dependence Sleep apnea Shortness of breath on exertion History of echocardiogram History of stress test History of CHF (congestive heart failure) Cardiology follow-up encounter History of atrial fibrillation Double vision KIANNA treated with BiPAP Congestive heart failure (CHF) Low testosterone Carotid stenosis High cholesterol Vision loss of right eye Vision loss of left eye Anemia Non-smoker Atrial fibrillation Hypertension Obesity History of non-ST elevation myocardial infarction (NSTEMI) (03/28/20) TIA (transient ischemic attack) (2019) Hodgkin disease GERD (gastroesophageal reflux disease) BPH (benign prostatic hyperplasia) Hypothyroidism Essential (primary) hypertension Anxiety and depression Morbid obesity with BMI of 45.0-49.9, adult Nephrolithiasis Hyperlipidemia Diabetes mellitus, type II Home Medications ?Medication ?Instructions ?Recorded ?Last Taken ?Type levothyroxine 125 mcg tablet 125 mcg PO DAILY thyroid 05/03/15 11/16/23 History tamsulosin 0.4 mg capsule 0.4 mg PO DAILY prostate 09/08/15 11/16/23 History buspirone 10 mg tablet 10 mg PO TID PRN Anxiety 04/17/18 11/16/23 History duloxetine 60 mg capsule,delayed 60 mg PO DAILY depression 04/17/18 11/16/23 History release (Cymbalta) 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 meter,continuous #1 ea 07/26/20 Unknown Rx (Dexcom G6 Physiotherapy Assistant) pen needle, diabetic 31 gauge x #1,200 ea 12/22/20 Unknown History 08/14 pen needle, diabetic 32 gauge x #150 ea 06/01/21 Unknown Rx 5/32 (BD Ultra-Fine Kiki Pen Needle) atorvastatin 80 mg tablet (Lipitor) 80 mg PO QHS cholesterol 09/04/21 11/15/23 History 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 transmitter (Dexcom #1 ea 12/29/21 Unknown Rx G6 Transmitter device) infusion set for insulin pump 10/08/22 Unknown History insulin pump controller 10/08/22 Unknown History metoprolol succinate 100 mg 100 mg PO DAILY heart #90 tabs 01/15/23 11/16/23 Rx tablet,extended release 24 hr hydrocodone-acetaminophen 5-325mg 1 tab PO BID pain 02/14/23 11/16/23 History 5mg-325mg 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 sensor (Dexcom G6 #1 ea 02/25/23 Unknown Rx Sensor device) furosemide 40 mg tablet (Lasix) 40 mg PO BID diuretic #180 tabs 04/25/23 11/16/23 Rx apixaban 5 mg tablet (Eliquis) 5 mg PO BID blood thinner #180 tabs 07/21/23 11/16/23 Rx insulin regular hum U-500 conc 500 75 unit (0.15 mL) continuous 11/11/23 11/16/23 Rx unit/mL subcutaneous soln (Humulin subcutaneous infusion DAILY blood R U-500 (Concentrated) Insulin) sugar #20 mL lisinopril 20 mg tablet 40 mg PO DAILY blood pressure 11/13/23 11/16/23 History aspirin 325 mg tablet 325 mg PO DAILY 11/27/23 Unknown History empagliflozin 25 mg tablet 25 mg PO DAILY #30 tabs 11/27/23 Unknown Rx (Jardiance) fenofibrate 54 mg tablet 54 mg PO DAILY cholesterol 11/27/23 Unknown History clopidogrel 75 mg tablet (Plavix) 75 mg PO DAILY 21 days #30 tabs 12/06/23 Unknown Rx pantoprazole 40 mg tablet,delayed 40 mg PO BID acid reflux 30 days 01/14/24 Unknown Rx release (Protonix) #60 tabs Allergy/AdvReac Type Severity Reaction Status Date / Time metoclopramide HCl (From Allergy Severe Anaphylaxis Verified 01/20/24 22:06 Reglan) Family History Brother Heart disease Mother CVA (cerebral vascular accident) Hypertension Rheumatoid arthritis Father Diabetes Other Alcohol abuse ulcer disease Surgical History History of cardiac catheterization History of lymph node excision History of left heart catheterization (2010) Hx of nephrolithotomy with removal of calculi History of thoracentesis (2016) Social History household members: spouse and none Smoking Status: Never smoker Electronic Cigarette Use: not used second hand exposure: No alcohol intake: never substance use type: does not use what type of physical activity do you participate in: none ROS ROS ED Constitutional Constitutional ED: Denies chills or fever(s) Eyes Eyes: Denies blurry vision or change in vision ENT ENT ED: Reports rhinorrhea and sore throat Cardiovascular Cardiovascular: Denies chest pain or palpitations Respiratory/Chest Respiratory/Chest: Reports cough and dyspnea Gastrointestinal Gastrointestinal: Denies abdominal pain, diarrhea, nausea or vomiting Genitourinary Genitourinary ED: Denies dysuria Musculoskeletal Musculoskeletal: Denies myalgias Integumentary Denies rash Neurologic Neurologic: Denies headache(s) Hematologic/Lymphatic Hematologic/Lymphatic: Reports easy bleeding and easy bruising Allergic/Immunologic Allergic/Immunologic ED: Denies mouth swelling or tongue swelling EXAM Physical Exam Const Vital Signs: 01/21/24 03:00 Pulse Rate 89 Respiratory Rate 20 H Pulse Ox 96 Oxygen Delivery Method Nasal Cannula Oxygen Flow Rate (L/min) 2 Positive well nourished, well developed and obese General Appearance ED: well developed; Negative for pallor Nutritional Appearance: obese HEENT HEENT Narrative: No tongue or lip swelling no oral lesions no airway edema or compromise There is cobblestoning noted in the posterior pharynx consistent with sinus drainage without secondary findings to suggest infection Eyes PERRL and EOMs intact bilaterally General Eye ED: Negative for scleral icterus Neck supple and no JVD Neck Narrative: No crepitance palpated Chest Wall palpation of chest normal Resp normal respiratory effort Resp Narrative: Breath sounds are diminished throughout with faint rhonchi in the bilateral bases but no nasal flaring retractions tachypnea or accessory muscle use Cardio regular rate and regular rhythm GI normal to inspection, nondistended, normoactive bowel sounds, non-tender, non- distended and no masses Auscultation: normoactive bowel sounds Palpation: soft Extremity Extremity Narrative: Trace to +1 pitting edema to the bilateral lower extremities that is equal and symmetric with negative Homans' sign bilaterally Neuro oriented x3, CN's II-XII intact bilaterally and no sensory deficits noted Sensorium / Orientation: alert Motor Exam: strength 5/5 throughout Psych mental status grossly normal Skin no rashes or lesions noted General Skin Exam: Negative for jaundice or pallor MDM MDM MDM Narrative Medical decision making narrative: Patient presented to the ER no acute respiratory distress although his room air pulse ox was on the lower side at approximately 90 to 92%. Demential diagnosis is for pneumonia versus pneumothorax versus congestive heart failure versus acute blood loss anemia versus COVID versus influenza versus RSV. Secondary to this basic blood work was obtained as well as a chest x-ray and viral swab. Viral swab was negative and chest x-ray question mild inflammatory versus small amount of pleural effusion changes. As the patient's had more congestion and cough with sick contacts this is most likely inflammatory in nature. The patient was ambulated and his pulse ox dropped to 78% on room air. As the patient is hypoxic with ambulation I do not feel he is safe for home and therefore the hospitalist was contacted. He agrees that based on his hypoxia with ambulation that he needs to be placed in the hospital and as the chest x- ray is question inflammatory change is is safest to put him on a round of antibiotics at this time. There is also potential that even though he is on aspirin Plavix and Eliquis that he has a hypercoagulable state secondary to his recurrent strokes as well as paroxysmal A-fib and he recommends a CTA to rule out a missed pneumonia or pulmonary embolus. Therefore this test was ordered but as he is hypoxic it will not change his disposition and therefore he was admitted to the medicine service while awaiting the results of the CTA History & Record Review Discussion w/independent historian: Patient and Family Lab Data Attestation: I reviewed the patient's lab results. Labs: Laboratory Results - last 24 hr 01/20/24 22:15 D-Dimer Quant (PE/DVT) 2.48 H* Radiography Diagnostic Testing: Clinical Impression(s) from Imaging Studies Chest X-Ray 01/20/24 23:25 IMPRESSION: Increased bilateral interstitial infiltrates which may be inflammatory pneumonitis or mild edema superimposed on chronic changes. Electronically Signed: Daniela Verduzco MD at 23:58 EDT , Chest CTA 01/21/24 02:45 IMPRESSION: No evidence of pulmonary emboli. Scattered groundglass opacities throughout the lungs nonspecific may be consistent with viral pneumonitis. Mediastinal and hilar adenopathy most likely reactive. CT chest follow-up recommended in 8-12 weeks to confirm resolution of these findings. Thyroid nodule. Nonemergent thyroid ultrasound recommended. 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
[2024-01-21 03:23] LABS: D-Dimer Quantitative (DVT/PE) 2.48 FEU/ug/m (0.27-0.49)
[2024-01-21] MEDS: Ceftriaxone 1 GM/50 ML BAG IV ×2 (03:28→21:50)
[2024-01-21] MEDS: Azithromycin 500 MG in Dextrose 5%-Water (250mL Bag) 250 ML 250 MG IV ×2 (04:03→22:25)
--- NOTE | 2024-01-21 04:10 | VDLE_ITS ---
Reason For Study: Elevated D-dimer - 2.48 RIGHT LEFT GSV is normal. GSV is normal. CFV is compressible, spontaneous, phasic, CFV is compressible, spontaneous, phasic, competent and demonstrates normal competent, and demonstrates normal augmentation. augmentation. FV is compressible, spontaneous, phasic, FV is compressible, spontaneous, phasic, competent and demonstrates normal competent and demonstrates normal augmentation. augmentation. POP V is compressible, spontaneous, phasic, POP V is compressible, spontaneous, phasic, competent and demonstrates normal competent and demonstrates normal augmentation. augmentation. T/P Trunk is compressible. T/P Trunk is compressible. PTV is compressible. PTV is compressible. RT PerV is compressible. LT PerV is compressible. Procedure This is a venous duplex using B-mode, color flow and spectral Doppler. Exam performed portable in patient room. A preliminary report was called and/or faxed to [facility]. VL/Venous Duplex US - Adam Extrem Interpretation Summary Deep veins of the bilateral lower extremities are patent and compressible segme ntally. There is no evidence of bilateral lower extremity deep vein thrombosis. The bilateral great saphenous veins appear patent and compressible segmentally. Ordering Physician: Eduin Umaña Referring Physician: Radha Khan M.D. Performed By: Nury Brenner RVT
[2024-01-21 04:29] LABS: Lactic Acid 1.6 mmol/L (0.4-1.9)
[2024-01-21 06:37] LABS: Ferritin 53 ng/mL (26-388); Iron 12 ug/dL (65-175); Iron Binding Capacity,Total 347 ug/dL (250-450); PERCENT IRON SATURATION 3.5 % (15.0-55.0)
[2024-01-21] MEDS: Levothyroxine 125 MCG Tablet PO (06:45)
[2024-01-21 07:18] LABS: Bedside Glucose 126 mg/dL (74-106)
[2024-01-21] MEDS: Ascorbic Acid 500 MG Tablet 1000 MG PO ×2 (09:40→15:49)
[2024-01-21] MEDS: Lactobacillis Acidophilus 1 CAP PO ×4 (09:40→21:53)
[2024-01-21] MEDS: Aspirin 325 MG Tablet PO (09:40)
[2024-01-21] MEDS: Tamsulosin HCl 0.4 MG Capsule PO (09:41)
[2024-01-21] MEDS: DULoxetine Hcl 60 MG Capsule PO (09:41)
[2024-01-21] MEDS: APIXABAN 5 MG TABLET PO ×2 (09:41→21:53)
[2024-01-21] MEDS: Furosemide 40 MG/4 ML Vial IV ×2 (09:41→18:00)
[2024-01-21] MEDS: guaiFENesin 1,200 MG Tablet 1200 MG PO ×2 (09:41→21:53)
[2024-01-21] MEDS: Metoprolol(XL)Succ 100 MG Tablet PO (09:42)
[2024-01-21] MEDS: Clopidogrel Bisulfate 75 MG Tablet PO (09:42)
[2024-01-21] MEDS: Pantoprazole Sodium 40 MG Tablet PO ×2 (09:42→21:53)
[2024-01-21] MEDS: Zinc Sulfate 50 mg zinc (220 mg) ORAL capsule PO (09:43)
[2024-01-21] MEDS: Cholecalciferol (Vit D3) 125 MCG CAPSULE (5,000 UNITS) PO (09:43)
[2024-01-21] MEDS: Fenofibrate 48 MG Tablet PO (09:43)
[2024-01-21] MEDS: Lisinopril 40 MG Tablet PO (09:43)
[2024-01-21] MEDS: HYDROcodone Bitartrate/Apap 5/325 Tablet PO ×2 (09:46→21:56)
[2024-01-21] MEDS: 0.9% Saline Lock 10 ML Syringe IV ×2 (09:46→18:03)
--- NOTE | 2024-01-21 10:10 | PN.HOSP_ITS ---
Reason for Visit Reason for Visit: Diagnoses Morbid (severe) obesity due to excess calories (01/21/24) Obstructive sleep apnea (adult) (pediatric) (01/21/24) Essential (primary) hypertension (01/21/24) Pneumonia, unspecified organism (01/21/24) Other abnormalities of breathing (01/21/24) Body mass index [BMI] 45.0-49.9, adult (01/21/24) Subjective Subjective Feeling ok. Denies LE edema. Denies weight gain. Objective Data Objective Data Vital Signs: Vital Signs Temp Pulse Resp BP Pulse Ox O2 Del Method O2 Flow Rate 36.8 C 79 16 135/67 H 95 Nasal Cannula 2 01/21/24 09:31 01/21/24 09:42 01/21/24 09:31 01/21/24 09:42 01/21/24 09:31 01/21/24 09:31 01/21/24 09:31 Oxygen Flow Rate (L/min) 2 Oxygen Delivery Method Nasal Cannula Weight: 146.4 kg Body Mass Index (BMI) 47.6 Intake & Output: Intake and Output for Last 24 Hours 01/19/24 01/20/24 01/21/24 23:59 23:59 23:59 Intake Total 305 / 305 Balance 305 / 305 Lab / Micro Data 01/20/24 22:15 01/20/24 22:15 Labs: Laboratory Results - last 24 hr 01/20/24 22:15: WBC 10.2, RBC 4.06 L, Hgb 9.5 L, Hct 31.1 L, MCV 76.6 L, MCH 23.4 L, MCHC 30.5 L, RDW Std Deviation 47.4 H, RDW Coeff of Gavi 17.1 H, Plt Count 267, MPV 9.5, Immature Gran % (Auto) 0.500, Neut % (Auto) 68.5, Lymph % (Auto) 16.8 L, [place] % (Auto) 10.6 H, Eos % (Auto) 2.9, Baso % (Auto) 0.7, Absolute Neuts (auto) 7.0, Absolute Lymphs (auto) 1.71, Nucleated RBC % 0, D- Dimer Quant (PE/DVT) 2.48 H*, Sodium 135 L, Potassium 4.3, Chloride 107, Carbon Dioxide 22.0, Anion Gap 6, BUN 29 H, Creatinine 1.24, Estim Creat Clear Calc 90.85, Est GFR (MDRD) Af Amer 76, Est GFR (MDRD) Non-Af 63, BUN/Creatinine Ratio 23.4 H, Glucose 196 H, Calcium 9.0, Magnesium 1.7, Troponin I High Sens 24, B- Natriuretic Peptide 130.8 H 01/21/24 03:55: Lactic Acid 1.6 01/21/24 05:43: Hemoglobin A1c 8.0 H, Iron 12 L, TIBC 347, Iron Saturation 3.5 L , Ferritin 53 01/21/24 06:46: POC Glucose 126 H Micro: Microbiology 01/21/24 05:20 Urine, Clean Catch Legionella Antigen - Final 01/21/24 05:20 Urine, Clean Catch Streptococcus pneumoniae Antigen (M - Final 01/20/24 22:52 Mucosa - Nose SARS-CoV-2, Influenza & RSV (PCR) - Final Radiography Diagnostic Testing: Radiology Impression Chest X-Ray 01/20/24 23:25 IMPRESSION: Increased bilateral interstitial infiltrates which may be inflammatory pneumonitis or mild edema superimposed on chronic changes. Electronically Signed: Daniela Verduzco MD at 23:58 EDT , Chest CTA 01/21/24 02:45 IMPRESSION: No evidence of pulmonary emboli. Scattered groundglass opacities throughout the lungs nonspecific may be consistent with viral pneumonitis. Mediastinal and hilar adenopathy most likely reactive. CT chest follow-up recommended in 8-12 weeks to confirm resolution of these findings. Thyroid nodule. Nonemergent thyroid ultrasound recommended. Electronically Signed: Daniela Verduzco MD at 5:16 EDT , Physical Exam Const alert and no apparent distress HEENT head/scalp atraumatic and moist oral mucous membranes Resp normal respiratory effort, no retractions and no use of accessory muscles Resp Narrative: bibasilar crackles. Cardio regular rate, regular rhythm, S1 normal heart sound and S2 normal heart sound GI normal to inspection, nondistended, normoactive bowel sounds and soft to palpation Neuro Sensorium / Orientation: awake and alert Assessment & Plan Assessment/Plan (1) Pneumonia: QUALIFIERS: Laterality: bilateral Lung location: unspecified part of lung Pneumonia type: due to unspecified organism Qualified Code(s): J18.9 - Pneumonia, unspecified organism (2) Uncontrolled hypertension: PLAN: Plan Acute pneumonitis * suspect viral. Cannot rule out bactereial pneummonia (On empiric abx with CTX and azithromycin). Cannot rule out CHF (did receive dose of IV furosemide) * COVID/Flu/RSV negative. Check resp panel * wean oxygen as tolerated. Hypertensive urgency * POA. 213/98 at one point, since improved. * continue lisinopril Chronic conditions: * obesity classIII: complicates care and recovery. * CVA: Continue ASA, clopidogrel and apixaban. * Hyperlipidemia: continue atorvastatin * Hypothyroidism: continue levothyroxine * pAfib: continue apixaban and metoprolol succinate VTE prophylaxis: not indicated as already on apixaban. Charges/Coding Visit Charges Inpatient E&M: 43763 Subs Hosp L2
[2024-01-21] MEDS: Insulin Lispro 100 UNIT/ML INSULN.PEN SC ×2 (11:27→15:53)
[2024-01-21 11:47] LABS: Bedside Glucose 152 mg/dL (74-106)
[2024-01-21 16:12] LABS: Bedside Glucose 151 mg/dL (74-106)
[2024-01-21] MEDS: Atorvastatin Calcium 80 MG Tablet PO (21:53)
[2024-01-21 22:14] LABS: Bedside Glucose 136 mg/dL (74-106)
[2024-01-22 03:45] VITALS: BP 105/67; PULSE 80; RESP 15; TEMP 36.2; O2SAT 93
[2024-01-22 06:28] LABS: Absolute Lymphocyte Count 2.23 X10^3/uL (0.83-4.51); Absolute Neutrophil Count 6.5 X10^3/uL (2.0-7.7); Basophil# 0.06 X10^3/uL; Basophil% 0.6 % (0-1); Eosinophil# 0.39 X10^3/uL; Eosinophils% 3.8 % (0-5); Hematocrit 30.9 % (40-54); Hemoglobin 9.3 g/dL (13.0-16.5); Lymphocyte # 2.23 X10^3/ul (0.83-4.51); Lymphocyte % 21.7 % (19-41); Mean Corp Hgb Conc 30.1 g/dL (32-36); Mean Corpuscular Hgb 23.4 pg (27.0-32.0); Mean Corpuscular Volume 77.6 fL (80-94); Mean Platelet Vol. 9.8 fl (6.2-12.0); Monocyte% 10.7 % (0-10); NRBC Flagged by Analyzer 0 % (0-5); Neutrophil # 6.45 X10^3/uL (2.7-7.7); Neutrophil % 62.7 % (47-70); Platelet Count 273 K/mm3 (150-450); RBC Distribution Width CV 17.5 % (11.6-14.6); RBC Distribution Width SD 49.5 fl (35.1-43.9); Red Blood Count 3.98 M/mm3 (4.6-6.2); White Blood Count 10.3 K/mm3 (4.4-11.0)
[2024-01-22] MEDS: Levothyroxine 125 MCG Tablet PO (06:36)
[2024-01-22] MEDS: Insulin Lispro 100 UNIT/ML INSULN.PEN SC ×2 (06:39→10:55)
[2024-01-22 07:01] LABS: Bedside Glucose 177 mg/dL (74-106)
[2024-01-22] MEDS: Aspirin 325 MG Tablet PO (07:47)
[2024-01-22] MEDS: Ascorbic Acid 500 MG Tablet 1000 MG PO (07:47)
[2024-01-22] MEDS: DULoxetine Hcl 60 MG Capsule PO (08:44)
[2024-01-22] MEDS: Tamsulosin HCl 0.4 MG Capsule PO (08:44)
[2024-01-22] MEDS: Lactobacillis Acidophilus 1 CAP PO ×2 (08:44→13:12)
[2024-01-22] MEDS: APIXABAN 5 MG TABLET PO (08:44)
[2024-01-22] MEDS: guaiFENesin 1,200 MG Tablet 1200 MG PO (08:45)
[2024-01-22] MEDS: Pantoprazole Sodium 40 MG Tablet PO (08:45)
[2024-01-22] MEDS: Fenofibrate 48 MG Tablet PO (08:45)
[2024-01-22] MEDS: Clopidogrel Bisulfate 75 MG Tablet PO (08:45)
[2024-01-22] MEDS: Zinc Sulfate 50 mg zinc (220 mg) ORAL capsule PO (08:46)
[2024-01-22] MEDS: Cholecalciferol (Vit D3) 125 MCG CAPSULE (5,000 UNITS) PO (08:46)
[2024-01-22] MEDS: Lisinopril 40 MG Tablet PO (08:46)
[2024-01-22 08:54] VITALS: BP 127/73; PULSE 74; RESP 16; TEMP 36.6; O2SAT 94
[2024-01-22 08:55] VITALS: BP 127/73; PULSE 74
[2024-01-22] MEDS: Metoprolol(XL)Succ 100 MG Tablet PO (08:55)
[2024-01-22] MEDS: HYDROcodone Bitartrate/Apap 5/325 Tablet PO (08:55)
--- NOTE | 2024-01-22 10:30 | CASEMGMT ---
CAMILA LUCERO Assessment: Face to Face with pt for initial transition planning/care coordination assessment. CAMILA LUCERO introduced self and role at [facility], pt voices understanding and consents to assessment. Pt is A&O x4 and answers all questions appropriately at this time. Pt lying in bed, sitting at bedside. Pt agreeable to answering questions with present. Care providers, pharmacy, and demographics verified/updated. Strata: 3 Admitting Dx: CAP Uncontrolled Hypertension and Respiratory PCP: Bill Specialists: Dilia, vascular; Jacques, Cardoiology; Soo, Nephrology; , Endocrinology; Deanna, Nephrology. Preferred Pharmacy: [facility] Insurance: MMO Prescription Benefit: yes LNOK: , Michaelle. Living Arrangements: Pt lives with , daughter, MAKI, and granddaughter in a ranch home with 3 steps to enter. ADLs: Pt reports I at baseline. Transportation: Pt drives self and denies concerns with transportation. DME: Pulse Ox, glucometer and supplies, BiPap, O2 concentrator and portable O2 through [employer]. Pt reports he and his both use the O2 from time to time at home, believes the O2 is actually ordered for . HHC/SNF: Denies Hx of. Pt states no concerns with going home at time of dc. Pt states no further concerns/needs. CM to follow. Advised pt to ask CM if any further question/concerns/needs arise, voices understanding. Pt Goal: Pt plan is to return home. Plan: Home, follow for O2 needs. Deny JENSEN CM
[2024-01-22] MEDS: 0.9% Saline Lock 10 ML Syringe IV ×2 (10:45→10:57)
[2024-01-22] MEDS: Furosemide 40 MG/4 ML Vial IV (10:56)
[2024-01-22] MEDS: Insulin Basal Pump 55 UNIT SC (10:56)
[2024-01-22 11:21] LABS: Bedside Glucose 224 mg/dL (74-106)
--- NOTE | 2024-01-22 12:24 | DS.PCM_ITS ---
Providers Date of Admission: 01/21/24 Primary Care Physician: Dr. Radha Khan MD Reason For Visit: CAP UNCONTROLLED HYPERTENSION & RESPIRATORY Diagnosis Discharge Diagnosis (1) Pneumonia: Status: Acute Code(s): J18.9 - Pneumonia, unspecified organism Qualifiers: Pneumonia type: due to unspecified organism Laterality: bilateral Lung location: unspecified part of lung Qualified Code(s): J18.9 - Pneumonia, unspecified organism (2) Uncontrolled hypertension: Status: Acute Code(s): I10 - Essential (primary) hypertension Plan Acute pneumonitis * 2/2 Rhinovirus. * COVID/Flu/RSV negative. Resp panel positive for Rhinovirus * wean oxygen as tolerated. Acute HFpEr * improved with IV furosemide * continue furosemide, lisinopril, metoprolol succinate * advised checking his weight daily Hypertensive urgency * resolved. POA. 213/98 at one point, since improved. * continue lisinopril Chronic conditions: * obesity classIII: complicates care and recovery. * CVA: Continue ASA, clopidogrel and apixaban. * Hyperlipidemia: continue atorvastatin * Hypothyroidism: continue levothyroxine * pAfib: continue apixaban and metoprolol succinate VTE prophylaxis: not indicated as already on apixaban. Medications at Discharge Home Medications levothyroxine 125 mcg tablet 125 mcg PO DAILY thyroid 05/03/15 tamsulosin 0.4 mg capsule 0.4 mg PO DAILY prostate 09/08/15 buspirone 10 mg tablet 10 mg PO TID PRN Anxiety 04/17/18 duloxetine 60 mg capsule,delayed release (Cymbalta) 60 mg PO DAILY depression 04/17/18 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 meter,continuous (Dexcom G6 Molecular Pathologist) #1 ea 07/26/20 pen needle, diabetic 31 gauge x 16 #1,200 ea 12/22/20 pen needle, diabetic 32 gauge x /32 (BD Ultra-Fine Kiki Pen Needle) #150 ea 06/01/21 atorvastatin 80 mg tablet (Lipitor) 80 mg PO QHS cholesterol 09/04/21 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 transmitter (Dexcom G6 Transmitter device) #1 ea 12/29/21 infusion set for insulin pump 10/08/22 insulin pump controller 10/08/22 metoprolol succinate 100 mg tablet,extended release 24 hr 100 mg PO DAILY heart #90 tabs 10/17/23 hydrocodone-acetaminophen 5-325mg 5mg-325mg 1 tab PO BID pain 02/14/23 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 sensor (Dexcom G6 Sensor device) #1 ea 02/25/23 furosemide 40 mg tablet (Lasix) 40 mg PO BID diuretic #180 tabs 04/25/23 apixaban 5 mg tablet (Eliquis) 5 mg PO BID blood thinner #180 tabs 07/21/23 insulin regular hum U-500 conc 500 unit/mL subcutaneous soln (Humulin R U-500 (Concentrated) Insulin) 75 unit (0.15 mL) continuous subcutaneous infusion DAILY blood sugar #20 mL 11/11/23 lisinopril 20 mg tablet 40 mg PO DAILY blood pressure 11/13/23 aspirin 325 mg tablet 325 mg PO DAILY 11/27/23 empagliflozin 25 mg tablet (Jardiance) 25 mg PO DAILY #30 tabs 11/27/23 fenofibrate 54 mg tablet 54 mg PO DAILY cholesterol 11/27/23 clopidogrel 75 mg tablet (Plavix) 75 mg PO DAILY 21 days #30 tabs 12/06/23 pantoprazole 40 mg tablet,delayed release (Protonix) 40 mg PO BID acid reflux 30 days #60 tabs 01/14/24 guaifenesin 1,200 mg tablet, extended release 12 hr (Mucus Relief ER) 1,200 mg PO BID #10 tabs 01/22/24 Weight / BMI Weight Weight: 146.4 kg Body Mass Index (BMI) 47.6 ABG / Lab / Microbiology Data 01/22/24 05:53 01/20/24 22:15 Laboratory: Laboratory Results - last 24 hr 01/21/24 15:52: POC Glucose 151 H 01/21/24 21:50: POC Glucose 136 H 01/22/24 05:53: WBC 10.3, RBC 3.98 L, Hgb 9.3 L, Hct 30.9 L, MCV 77.6 L, MCH 23.4 L, MCHC 30.1 L, RDW Std Deviation 49.5 H, RDW Coeff of Gavi 17.5 H, Plt Count 273, MPV 9.8, Immature Gran % (Auto) 0.500, Neut % (Auto) 62.7, Lymph % (Auto) 21.7, [place] % (Auto) 10.7 H, Eos % (Auto) 3.8, Baso % (Auto) 0.6, Absolute Neuts (auto) 6.5, Absolute Lymphs (auto) 2.23, Nucleated RBC % 0 01/22/24 06:38: POC Glucose 177 H 01/22/24 10:54: POC Glucose 224 H Microbiology: Microbiology 01/21/24 10:40 Mucosa - Nasopharyngeal Respiratory Panel (PCR) - Final Rhinovirus 01/21/24 05:20 Urine, Clean Catch Legionella Antigen - Final 01/21/24 05:20 Urine, Clean Catch Streptococcus pneumoniae Antigen (M - Final 01/20/24 22:52 Mucosa - Nose SARS-CoV-2, Influenza & RSV (PCR) - Final Radiography Diagnostic Testing: Radiology Impression Venous Doppler Study 01/21/24 04:10 Interpretation Summary Deep veins of the bilateral lower extremities are patent and compressible segmentally. There is no evidence of bilateral lower extremity deep vein thrombosis. The bilateral great saphenous veins appear patent and compressible segmentally. Ordering Physician: Eduin Umaña Referring Physician: Radha Khan M.D. Performed By: Nury Brenner RVT D/C Instructions Discharge Diet: 8 Cup Fluid Restriction and 2000 mg Sodium Diet Meaningful Use Info Meaningful Use Meaningful Use Diagnoses (Choose all that apply): CHF CHF ISABEL/ARB ordered at discharge?: Yes Documented LVEF (%): 55 Ischemic Stroke Statin Dosing Therapy Reference: STATIN DOSE THERAPY REFERENCE: * Patients > 75 years receive moderate or high dose statin therapy. * Patients 75 years or YOUNGER should receive HIGH intensity statin dose unless contraindicated. You will be required to document reason for non-treatment if statin daily dose does not meet guidelines. HIGH DOSE STATIN THERAPY DAILY Atorvastatin > than or = to 40 mg Rosuvastatin > than or = to 20 mg Amlodipine + Atorvastatin > than or = to 2.5/40 mg Ezetimibe + Simvastatin 10/80 mg Simvastatin 80mg Discharge Plan Admission Admit Date/Time: 01/21/24 03:37 Primary Reason for Your Visit: Rhinovirus. CHF exacerbation. Attending Provider: Ochoa Johnson Primary Care Provider: Radha Khan Consulting Providers: Eduin Umaña Patient Instructions: Heart Failure Flare Up Signs, Heart Failure: Tracking Your Weight, Heart Failure: Know Your Baselines Discharge Orders/Prescriptions Prescriptions: New guaifenesin [Mucus Relief ER] 1,200 mg Tablet Extended Release 12hr 1,200 mg PO BID Qty: 10 0RF Continued (DME) Dexcom G6 Molecular Pathologist Misc See Rx Instructions .ROUTE .MEDSUPPLY Qty: 1 0RF Rx Instructions: As directed (DME) pen needle, diabetic 31 gauge x 5/16 needle See Rx Instructions .ROUTE .MEDSUPPLY Qty: 1200 Patient Comments: use 1 PEN NEEDLE to inject MEDICATION subcutaneously as directed Rx Instructions: As directed (DME) pen needle, diabetic [BD Ultra-Fine Kiki Pen Needle] 32 gauge x 5/32 needle See Rx Instructions .ROUTE .MEDSUPPLY Qty: 150 6RF Rx Instructions: As directed (DME) infusion set for insulin pump Infusion Set See Rx Instructions .Route Rx Instructions: As directed (DME) insulin pump controller Misc See Rx Instructions .Route Rx Instructions: As directed aspirin 325 mg tablet 325 mg PO DAILY fenofibrate 54 mg tablet 54 mg PO DAILY Jardiance 25 mg tablet 25 mg PO DAILY Qty: 30 5RF clopidogrel [Plavix] 75 mg tablet 75 mg PO DAILY 21 Days Qty: 30 11RF Patient Comments: PT WAS SUPPOSED TO START TODAY, 11/16/23, HASNT STARTED YET levothyroxine 125 MCG tablet 125 mcg PO DAILY tamsulosin 0.4 MG capsule 0.4 mg PO DAILY buspirone 10 MG tablet 10 mg PO TID PRN (Reason: Anxiety) Rx Instructions: pt states he usually takes 1 daily duloxetine [Cymbalta] 60 MG capsule,delayed release(DR/EC) 60 mg PO DAILY atorvastatin [Lipitor] 80 MG tablet 80 mg PO QHS Rx Instructions: cholesterol hydrocodone-acetaminophen 5-325 mg tablet 1 tab PO BID lisinopril 20 mg tablet 40 mg PO DAILY (DME) Dexcom G6 Transmitter Device See Rx Instructions .ROUTE .MEDSUPPLY Qty: 1 3RF Rx Instructions: As directed metoprolol succinate 100 mg tablet extended release 24 hr 100 mg PO DAILY Qty: 90 3RF (DME) Dexcom G6 Sensor Device See Rx Instructions .ROUTE .MEDSUPPLY Qty: 1 6RF Rx Instructions: As directed furosemide [Lasix] 40 mg tablet 40 mg PO BID Qty: 180 3RF Eliquis 5 mg tablet 5 mg PO BID Qty: 180 3RF Humulin R U-500 (Conc) Insulin 500 unit/mL solution 75 unit continuous subcutaneous infusion DAILY Qty: 20 5RF Patient Comments: INSULIN PUMP pantoprazole [Protonix] 40 mg tablet,delayed release (DR/EC) 40 mg PO BID 30 Days Qty: 60 0RF Referrals / Follow Up: [facility] [Provider Group] - 04/30/24 1:30 pm Radha Khan MD [Primary Care Provider] - Within 2 Weeks Disposition Disposition (needs filled in before D/C Order can be placed): Home, Self Care Charges/Coding Visit Charges Inpatient E&M: 06284 Disch Hosp >30min
[2024-01-22 13:29] VITALS: BP 114/71; PULSE 89; RESP 16; TEMP 36.5; O2SAT 94
--- NOTE | 2024-01-22 13:37 | CASEMGMT ---
Patient has order for discharge. RN CM in to discuss needs at discharge. Patient denies needs or help at discharge. Patient had no further questions or concerns.
[2024-01-22 14:10] VITALS: BP 114/71; PULSE 89; RESP 16; TEMP 36.5; O2SAT 94
--- NOTE | 2024-01-22 14:40 | PHA.DC.MC.R ---
Pharmacy [facility] has performed discharge medication reconciliation and counseling for this patient. 1. GUAIFENESIN 1200MG PO BID X 5 DAYS The patient's discharge medication list was reviewed for discrepancies and discrepancies were resolved. The patient was counseled on the following discharge medications and changes in medications for homegoing were reviewed. The Reason for Use, instructions for use, and potential side effects were reviewed for all new medications. The patient's questions regarding all of their medications were answered. The patient was able to verbally demonstrate an understanding of their discharge medications. Medications at Discharge Home Medications levothyroxine 125 mcg tablet 125 mcg PO DAILY thyroid 05/03/15 tamsulosin 0.4 mg capsule 0.4 mg PO DAILY prostate 09/08/15 buspirone 10 mg tablet 10 mg PO TID PRN Anxiety 04/17/18 duloxetine 60 mg capsule,delayed release (Cymbalta) 60 mg PO DAILY depression 04/17/18 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 meter,continuous (Dexcom G6 Fish Boning Machine Feeder) #1 ea 07/26/20 pen needle, diabetic 31 gauge x /16 #1,200 ea 12/22/20 pen needle, diabetic 32 gauge x 5/32 (BD Ultra-Fine Kiki Pen Needle) #150 ea 06/01/21 atorvastatin 80 mg tablet (Lipitor) 80 mg PO QHS cholesterol 09/04/21 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 transmitter (Dexcom G6 Transmitter device) #1 ea 12/29/21 infusion set for insulin pump 10/08/22 insulin pump controller 10/08/22 metoprolol succinate 100 mg tablet,extended release 24 hr 100 mg PO DAILY heart #90 tabs 01/15/23 hydrocodone-acetaminophen 5-325mg 5mg-325mg 1 tab PO BID pain 02/14/23 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 sensor (Dexcom G6 Sensor device) #1 ea 02/25/23 furosemide 40 mg tablet (Lasix) 40 mg PO BID diuretic #180 tabs 04/25/23 apixaban 5 mg tablet (Eliquis) 5 mg PO BID blood thinner #180 tabs 07/21/23 insulin regular hum U-500 conc 500 unit/mL subcutaneous soln (Humulin R U-500 (Concentrated) Insulin) 75 unit (0.15 mL) continuous subcutaneous infusion DAILY blood sugar #20 mL 11/11/23 lisinopril 20 mg tablet 40 mg PO DAILY blood pressure 11/13/23 aspirin 325 mg tablet 325 mg PO DAILY heart health 11/27/23 empagliflozin 25 mg tablet (Jardiance) 25 mg PO DAILY diabetes #30 tabs 11/27/23 fenofibrate 54 mg tablet 54 mg PO DAILY cholesterol 11/27/23 clopidogrel 75 mg tablet (Plavix) 75 mg PO DAILY anti platelet 21 days #30 tabs 12/06/23 pantoprazole 40 mg tablet,delayed release (Protonix) 40 mg PO BID acid reflux 30 days #60 tabs 01/14/24 guaifenesin 1,200 mg tablet, extended release 12 hr (Mucus Relief ER) 1,200 mg PO BID #10 tabs 01/22/24
[2024-01-22 14:50] LABS: Anion Gap 7 (5-15); BUN 31 mg/dL (7-18); BUN/Creat Ratio 25.4 RATIO (10-20); Calcium,Total 8.9 mg/dL (8.5-10.1); Chloride 105 mmol/L (98-107); Creatinine, Serum 1.22 mg/dL (0.70-1.30); EST Glomerular Filtration Rate 64 mL/min (>60); Est Glom Filt Rate - Afr Amer 78 mL/min (>60); Estimated Creatinine Clearance 91.97 ml/min; Glucose 196 mg/dL (74-106); Potassium 4.1 mmol/L (3.5-5.1); Sodium Level 136 mmol/L (136-145)
== END 2024-01-22 14:12 | disposition home or self-care (01) | DRG 193 ==
LOC: ED 01-21 02:57 → PCU 01-21 04:17
PROVIDERS: Admitting Provider Internal Medicine; Emergency Provider Emergency Medicine; PCP Family Medicine; Referring Provider Internal Medicine
DX: J18.9 Pneumonia, unspecified organism (principal); I50.33 Acute on chronic diastolic (congestive) heart failure; Z68.42 Body mass index [BMI] 45.0-49.9, adult; I11.0 Hypertensive heart disease with heart failure; E11.40 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 with diabetic neuropathy, unspecified; F32.A Depression, unspecified; E03.9 Hypothyroidism, unspecified; I48.0 Paroxysmal atrial fibrillation; E78.00 Pure hypercholesterolemia, unspecified; I25.10 Atherosclerotic heart disease of native coronary artery without angina pectoris; Z79.4 Long term (current) use of insulin; M19.90 Unspecified osteoarthritis, unspecified site; E66.01 Morbid (severe) obesity due to excess calories; G47.33 Obstructive sleep apnea (adult) (pediatric); I16.0 Hypertensive urgency; I25.2 Old myocardial infarction; F41.9 Anxiety disorder, unspecified; K21.9 Gastro-esophageal reflux disease without esophagitis; N40.0 Benign prostatic hyperplasia without lower urinary tract symptoms; Z79.82 Long term (current) use of aspirin; Z79.02 Long term (current) use of antithrombotics/antiplatelets; Z79.01 Long term (current) use of anticoagulants; Z79.899 Other long term (current) drug therapy; Z86.73 Personal history of transient ischemic attack (TIA), and cerebral infarction without residual deficits
CPT/HCPCS: 36415; 71046; 71275; 80048; 82728; 82962; 83036; 83540; 83550; 83605; 83735; 83880; 84484; 85025; 85379; 87449; 87631; 87633; 93005; 93970; 94640; 94760; 97802; 99285; J7040; Q9967; A4216; J1940

== ENCOUNTER → 2024-02-06 | Outpatient (CLI) | payer OTHER, SELFPAY | END | disposition home or self-care (01) | LOC: US 12:47 | PROVIDERS: PCP Family Medicine; Referring Provider Family Medicine; Visit Provider Family Medicine | DX: E04.1 Nontoxic single thyroid nodule (principal) | CPT/HCPCS: 76536 ==

== ENCOUNTER 2024-02-26 10:37 | Emergency (ER) | payer OTHER, SELFPAY ==
[2024-02-26 10:37] VITALS: BP 143/76; PULSE 95; RESP 20; TEMP 36.7; O2SAT 97; BMI 46.5
--- NOTE | 2024-02-26 11:20 | RAD_ITS ---
STUDY: X-RAY CHEST REASON FOR EXAM: Male, 58 years old. Shortness of breath and cough TECHNIQUE: Single AP portable view of the chest. COMPARISON: 01/20/2024 FINDINGS: EKG leads overlie the chest Chronic interstitial changes in both lung goldberg. No superimposed acute infiltrate or effusion. There has been improvement since the previous study with previously noted infiltrates having resolved. Normal size heart. Normal mediastinum and darrel. Normal visualized pulmonary arteries. Normal visualized aortic arch and descending thoracic aorta. There are diffuse degenerative changes of the visualized thoracic spine. There is degenerative osteoarthritis of the bilateral shoulders. There is no demonstrated abnormality of the visualized soft tissue structures of the upper abdomen. RAD/Chest 1 View (Portable) IMPRESSION: Chronic interstitial changes, no superimposed acute pulmonary process Electronically Signed: Issa Goncalves MD at 12:32 EST ,
[2024-02-26 11:22] LABS: Absolute Lymphocyte Count 1.36 X10^3/uL (0.83-4.51); Absolute Neutrophil Count 6.7 X10^3/uL (2.0-7.7); Basophil# 0.08 X10^3/uL; Basophil% 0.9 % (0-1); Eosinophils% 2.1 % (0-5); Hematocrit 34.4 % (40-54); Hemoglobin 10.2 g/dL (13.0-16.5); Lymphocyte # 1.36 X10^3/ul (0.83-4.51); Lymphocyte % 14.5 % (19-41); Mean Corp Hgb Conc 29.7 g/dL (32-36); Mean Corpuscular Hgb 22.7 pg (27.0-32.0); Mean Corpuscular Volume 76.6 fL (80-94); Mean Platelet Vol. 10.1 fl (6.2-12.0); Monocyte# 0.94 X10^3/uL; Monocyte% 10.1 % (0-10); NRBC Flagged by Analyzer 0 % (0-5); Neutrophil # 6.73 X10^3/uL (2.7-7.7); Platelet Count 254 K/mm3 (150-450); RBC Distribution Width CV 18.2 % (11.6-14.6); RBC Distribution Width SD 49.1 fl (35.1-43.9); Red Blood Count 4.49 M/mm3 (4.6-6.2); White Blood Count 9.4 K/mm3 (4.4-11.0)
--- NOTE | 2024-02-26 11:22 | EDS_ITS ---
HPI History of Present Illness Chief Complaint: Palpitations Informant: patient and spouse/S.O. Narrative Narrative: 58-year-old male presenting to the emergency room with palpitations and dyspnea. Patient states that yesterday afternoon he began to feel dyspneic. He states that he took his pulse ox and it was in the 70s and he gave himself a breathing treatment. He was noting quite variability in his heart rate sometimes up to 180 sat down into the 70s. This persisted throughout the night. He states that typically when he goes into A-fib it corrects itself but this episode was not. He is on Eliquis aspirin and Plavix. He states he did miss a dose of his Eliquis a couple nights ago. He notes that he is recovering from pneumonia from a few weeks ago. He states that now he is not feeling his heart race and he is feeling better. [facility] Medical History Iron deficiency anemia due to chronic blood loss Morbid obesity with BMI of 45.0-49.9, adult Atherosclerotic heart disease of [place] coronary artery without angina pectoris Peripheral vestibulopathy Ischemic cerebrovascular accident (CVA) Cranial nerve disorder Polyneuropathy Neuropathy Multiple thyroid nodules Microalbuminuria CKD (chronic kidney disease) Thyroid nodule Presence of insulin pump Non-proliferative diabetic retinopathy Vertigo Chronic diastolic CHF (congestive heart failure) Paroxysmal atrial fibrillation Polyneuropathy due to type 2 diabetes mellitus Diabetes KIANNA (obstructive sleep apnea) Mini stroke (~10/01/23) Wears glasses Depression Anxiety Cancer Thyroid disease Insulin dependent diabetes mellitus Arthritis History of renal disease Prostate disease Gastric reflux CPAP (continuous positive airway pressure) dependence Sleep apnea Shortness of breath on exertion History of echocardiogram History of stress test History of CHF (congestive heart failure) Cardiology follow-up encounter History of atrial fibrillation Double vision KIANNA treated with BiPAP Congestive heart failure (CHF) Low testosterone Carotid stenosis High cholesterol Vision loss of right eye Vision loss of left eye Anemia Non-smoker Atrial fibrillation Hypertension Obesity History of non-ST elevation myocardial infarction (NSTEMI) (03/28/20) TIA (transient ischemic attack) (2019) Hodgkin disease GERD (gastroesophageal reflux disease) BPH (benign prostatic hyperplasia) Hypothyroidism Essential (primary) hypertension Anxiety and depression Morbid obesity with BMI of 45.0-49.9, adult Nephrolithiasis Hyperlipidemia Diabetes mellitus, type II Home Medications ?Medication ?Instructions ?Recorded ?Last Taken ?Type levothyroxine 125 mcg tablet 112 mcg PO DAILY thyroid 05/03/15 11/16/23 History tamsulosin 0.4 mg capsule 0.4 mg PO DAILY prostate 09/08/15 11/16/23 History buspirone 10 mg tablet 10 mg PO TID Anxiety 04/17/18 11/16/23 History duloxetine 60 mg capsule,delayed 60 mg PO DAILY depression 04/17/18 11/16/23 History release (Cymbalta) 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 meter,continuous #1 ea 07/26/20 Unknown Rx (Dexcom G6 Shrimp Picker) pen needle, diabetic 31 gauge x #1,200 ea 12/22/20 Unknown History 08/14 pen needle, diabetic 32 gauge x #150 ea 06/01/21 Unknown Rx (BD Ultra-Fine Kiki Pen Needle) atorvastatin 80 mg tablet (Lipitor) 80 mg PO QHS cholesterol 09/04/21 11/15/23 History 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 transmitter (Dexcom #1 ea 12/29/21 Unknown Rx G6 Transmitter device) infusion set for insulin pump 10/08/22 Unknown History insulin pump controller 10/08/22 Unknown History metoprolol succinate 100 mg 100 mg PO DAILY heart #90 tabs 01/15/23 11/16/23 Rx tablet,extended release 24 hr hydrocodone-acetaminophen 5-325mg 1 tab PO BID pain 02/14/23 11/16/23 History 5mg-325mg 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 sensor (Dexcom G6 #1 ea 02/25/23 Unknown Rx Sensor device) furosemide 40 mg tablet (Lasix) 40 mg PO BID diuretic #180 tabs 04/25/23 11/16/23 Rx apixaban 5 mg tablet (Eliquis) 5 mg PO BID blood thinner #180 tabs 07/21/23 11/16/23 Rx insulin regular hum U-500 conc 500 75 unit (0.15 mL) continuous 11/11/23 11/16/23 Rx unit/mL subcutaneous soln (Humulin subcutaneous infusion DAILY blood R U-500 (Concentrated) Insulin) sugar #20 mL lisinopril 20 mg tablet 40 mg PO DAILY blood pressure 11/13/23 11/16/23 History aspirin 325 mg tablet 325 mg PO DAILY heart health 11/27/23 Unknown History empagliflozin 25 mg tablet 25 mg PO DAILY diabetes #30 tabs 11/27/23 Unknown Rx (Jardiance) clopidogrel 75 mg tablet (Plavix) 75 mg PO DAILY anti platelet 21 12/06/23 Unknown Rx days #30 tabs albuterol sulfate 90 mcg/actuation 2 puff inhalation Q4H PRN 02/06/24 Unknown Rx aerosol inhaler (Ventolin HFA) shortness of breath or wheezing #18 grams pantoprazole 40 mg tablet,delayed 40 mg PO BID acid reflux 30 days 02/17/24 Unknown Rx release (Protonix) #60 tabs fenofibrate 54 mg tablet 54 mg PO DAILY cholesterol #30 tabs 02/23/24 Unknown Rx Allergy/AdvReac Type Severity Reaction Status Date / Time metoclopramide HCl (From Allergy Severe Anaphylaxis Verified 02/26/24 10:42 Sara) Family History Brother Heart disease Mother CVA (cerebral vascular accident) Hypertension Rheumatoid arthritis Father Diabetes Other Alcohol abuse ulcer disease Surgical History History of cardiac catheterization History of lymph node excision History of left heart catheterization (2009) Hx of nephrolithotomy with removal of calculi History of thoracentesis (2015) Social History household members: spouse and none Smoking Status: Never smoker Electronic Cigarette Use: not used second hand exposure: No alcohol intake: never substance use type: does not use what type of physical activity do you participate in: none ROS ROS ED ROS Narrative Fatigue Constitutional Constitutional ED: Denies chills, fever(s) or weight loss Eyes Eyes: Denies change in vision or diplopia ENT ENT ED: Denies ear pain, rhinorrhea or sore throat Cardiovascular Cardiovascular: Reports palpitations and racing heartbeat; Denies chest pain or orthopnea Respiratory/Chest Respiratory/Chest: Reports dyspnea and dyspnea on exertion; Denies cough or orthopnea Gastrointestinal Gastrointestinal: Denies abdominal pain, diarrhea, nausea or vomiting Genitourinary Genitourinary ED: Denies dysuria, hematuria or urinary frequency Musculoskeletal Musculoskeletal: Denies arthralgias or myalgias Integumentary Denies abscess or rash Neurologic Neurologic: Denies headache(s) or weakness Psychiatric Psychiatric: Denies anxiety, depression, suicidal ideation or suicidal thoughts Endocrine Endocrinology: Denies polydipsia, polyphagia or polyuria Allergic/Immunologic Allergic/Immunologic ED: Denies mouth swelling, tongue swelling or urticaria EXAM Physical Exam Const Vital Signs: 02/26/24 10:37 02/26/24 11:19 02/26/24 11:46 Temperature 98.1 F Temperature Source Oral Pulse Rate 95 86 Respiratory Rate 20 H 15 Respiratory Effort Normal Non-Labored Blood Pressure 143/76 H 167/73 H Blood Pressure Mean 98 104 Pulse Ox 97 96 Oxygen Delivery Method Room Air Room Air 02/26/24 12:03 02/26/24 13:00 02/26/24 14:00 Temperature 97.3 F L Temperature Source Oral Pulse Rate 94 92 92 Respiratory Rate 20 H 22 H 28 H Respiratory Effort Blood Pressure 157/77 H 160/85 H 157/79 H Blood Pressure Mean 103 110 105 Pulse Ox 94 94 96 Oxygen Delivery Method Room Air Room Air Room Air Positive well nourished and well developed General Appearance ED: well developed HEENT Reports normocephalic, head/scalp atraumatic and moist mucous membranes Eyes PERRL and EOMs intact bilaterally Neck no lymphadenopathy, supple and no JVD Resp normal respiratory effort and clear to auscultation bilaterally Cardio regular rate, regular rhythm and no murmurs GI normal to inspection, nondistended, normoactive bowel sounds and non-tender Palpation: soft Back/Spine no CVA tenderness and normal ROM Extremity General Extremety ED: Yes edema General Extremity: edema bilateral lower extremity Details: mild Neuro oriented x3 and CN's II-XII intact bilaterally Sensorium / Orientation: alert Motor Exam: strength 5/5 throughout Psych mental status grossly normal Mood & Affect: Negative for depressed or tearful Skin no rashes or lesions noted and no wounds MDM MDM MDM Narrative Medical decision making narrative: Differential diagnosis includes but not limited to electrolyte abnormality acute coronary syndrome pulmonary embolism cardiac dysrhythmia bronchospasm pneumonia anemia EKG is in normal sinus rhythm. My independent interpretation of the chest x-ray is no acute process. White count 9.4 hemoglobin 10.2 platelet count of 254. D- dimer is within normal limits at 0.44. Initial troponin is 358 delta troponin 443. 2 EKGs did not show any ST abnormalities. His second shows a normal sinus rhythm at a rate of 81. I discussed the case and the patient's prior heart catheterization in May 2022 with our on-call custom marine canvas fabricator Dr. Reyes. Most likely the elevated troponin is rate dependent. He did not have chest pain sweating but was short of breath with it. I spoke with the patient and his and we talked about the above findings as well as my conversation with Dr. Reyes. It is the day before and it is unlikely that we would be doing a heart catheterization on him before the weekend. Patient is comfortable going home and lives a short distance from the hospital he states. He states that if he should develop any chest pain or return of symptoms he will come back to the hospital. History & Record Review Discussion w/independent historian: Patient and Significant other Additional record(s) reviewed:: Prior outpatient record, Prior ED visit and Prior labs Lab Data Attestation: I reviewed the patient's lab results. Labs: Laboratory Results - last 24 hr 02/26/24 02/26/24 10:52 12:54 WBC 9.4 RBC 4.49 L Hgb 10.2 L Hct 34.4 L MCV 76.6 L MCH 22.7 L MCHC 29.7 L RDW Std Deviation 49.1 H RDW Coeff of Gavi 18.2 H Plt Count 254 MPV 10.1 Immature Gran % (Auto) 0.400 Neut % (Auto) 72.0 H Lymph % (Auto) 14.5 L [place] % (Auto) 10.1 H Eos % (Auto) 2.1 Baso % (Auto) 0.9 Absolute Neuts (auto) 6.7 Absolute Lymphs (auto) 1.36 Nucleated RBC % 0 D-Dimer Quant (PE/DVT) 0.44 Sodium 138 Potassium 4.0 Chloride 109 H Carbon Dioxide 22.0 Anion Gap 7 BUN 27 H Creatinine 1.32 H Estim Creat Clear Calc 83.89 Est GFR (MDRD) Af Amer 71 Est GFR (MDRD) Non-Af 59 L BUN/Creatinine Ratio 20.5 H Glucose 193 H Calcium 9.0 Magnesium 2.3 Troponin I High Sens 358 H* 443 H* Radiography Diagnostic Testing: Clinical Impression(s) from Imaging Studies Chest X-Ray 02/26/24 11:20 IMPRESSION: Chronic interstitial changes, no superimposed acute pulmonary process Electronically Signed: Issa Goncalves MD at 12:32 EST Reading Location ID and State: [facility] / [place] , Service support , EKG Initial EKG: Attestation: I personally reviewed and interpreted this EKG as follows: Comments: Normal sinus rhythm ventricular rate of 92 bpm. Management Discussion w/another healthcare provider: Arc Welding Machine Operator (Dr. Reyes ([facility] Cardiology)) Discharge Plan Triage Chief Complaint: Palpitations ED Provider: Cristhian Garcia Dx/Rx/DC Orders Clinical Impression: Paroxysmal atrial fibrillation, Anticoagulated, Elevated troponin Instructions: ED AFIB Prescriptions: No Action (DME) Dexcom G6 Shrimp Picker Misc See Rx Instructions .ROUTE .MEDSUPPLY Qty: 1 0RF Rx Instructions: As directed (DME) pen needle, diabetic 31 gauge x 5/16 needle See Rx Instructions .ROUTE .MEDSUPPLY Qty: 1200 Patient Comments: use 1 PEN NEEDLE to inject MEDICATION subcutaneously as directed Rx Instructions: As directed (DME) pen needle, diabetic [BD Ultra-Fine Kiki Pen Needle] 32 gauge x 5/32 needle See Rx Instructions .ROUTE .MEDSUPPLY Qty: 150 6RF Rx Instructions: As directed (DME) infusion set for insulin pump Infusion Set See Rx Instructions .Route Rx Instructions: As directed (DME) insulin pump controller Misc See Rx Instructions .Route Rx Instructions: As directed aspirin 325 mg tablet 325 mg PO DAILY Jardiance 25 mg tablet 25 mg PO DAILY Qty: 30 5RF clopidogrel [Plavix] 75 mg tablet 75 mg PO DAILY 21 Days Qty: 30 11RF Patient Comments: PT WAS SUPPOSED TO START TODAY, 11/16/23, HASNT STARTED YET fenofibrate 54 mg tablet 54 mg PO DAILY Qty: 30 6RF levothyroxine 125 MCG tablet 112 mcg PO DAILY tamsulosin 0.4 MG capsule 0.4 mg PO DAILY buspirone 10 MG tablet 10 mg PO TID Rx Instructions: pt states he usually takes 1 daily duloxetine [Cymbalta] 60 MG capsule,delayed release(DR/EC) 60 mg PO DAILY atorvastatin [Lipitor] 80 MG tablet 80 mg PO QHS Rx Instructions: cholesterol hydrocodone-acetaminophen 5-325 mg tablet 1 tab PO BID lisinopril 20 mg tablet 40 mg PO DAILY (DME) Dexcom G6 Transmitter Device See Rx Instructions .ROUTE .MEDSUPPLY Qty: 1 3RF Rx Instructions: As directed metoprolol succinate 100 mg tablet extended release 24 hr 100 mg PO DAILY Qty: 90 3RF (DME) Dexcom G6 Sensor Device See Rx Instructions .ROUTE .MEDSUPPLY Qty: 1 6RF Rx Instructions: As directed furosemide [Lasix] 40 mg tablet 40 mg PO BID Qty: 180 3RF Eliquis 5 mg tablet 5 mg PO BID Qty: 180 3RF Humulin R U-500 (Conc) Insulin 500 unit/mL solution 75 unit continuous subcutaneous infusion DAILY Qty: 20 5RF Patient Comments: INSULIN PUMP albuterol sulfate [Ventolin HFA] 90 mcg/actuation HFA aerosol inhaler 2 puff inhalation Q4H PRN (Reason: shortness of breath or wheezing) Qty: 18 6RF pantoprazole [Protonix] 40 mg tablet,delayed release (DR/EC) 40 mg PO BID 30 Days Qty: 60 0RF Primary Care Provider: Radha Khan Referrals: Radha Khan MD [Primary Care Provider] - Sumanth Hanna MD [Med Staff - Active Staff] - As soon as possible Print Language: Eritrean Disposition Disposition: Home, Self Care
[2024-02-26 11:35] LABS: D-Dimer Quantitative (DVT/PE) 0.44 FEU/ug/m (0.27-0.49)
[2024-02-26 11:46] VITALS: BP 167/73; PULSE 86; RESP 15; O2SAT 96
[2024-02-26 11:48] LABS: Anion Gap 7 (5-15); BUN 27 mg/dL (7-18); BUN/Creat Ratio 20.5 RATIO (10-20); Chloride 109 mmol/L (98-107); Creatinine, Serum 1.32 mg/dL (0.70-1.30); EST Glomerular Filtration Rate 59 mL/min (>60); Est Glom Filt Rate - Afr Amer 71 mL/min (>60); Estimated Creatinine Clearance 83.89 ml/min; Glucose 193 mg/dL (74-106); Magnesium 2.3 mg/dL (1.6-2.6); Sodium Level 138 mmol/L (136-145); Troponin-I HS 358 pg/mL (3.0-78.0)
[2024-02-26 12:03] VITALS: BP 157/77; PULSE 94; RESP 20; TEMP 36.3; O2SAT 94
--- NOTE | 2024-02-26 12:48 | CM.ED ---
Social Service SW verified that patient has both HPOA and Living Will on file at [facility]. Maricel Chopra, PROFESSOR OF VOICE, BOX TOE CEMENTER
[2024-02-26 13:00] VITALS: BP 160/85; PULSE 92; RESP 22; O2SAT 94
[2024-02-26 13:38] LABS: Troponin-I HS 443 pg/mL (3.0-78.0)
[2024-02-26 14:00] VITALS: BP 157/79; PULSE 92; RESP 28; O2SAT 96
[2024-02-26 14:39] VITALS: BP 163/76; PULSE 97; RESP 97; TEMP 36.4; O2SAT 100
== END 2024-02-26 14:46 | disposition home or self-care (01) ==
PROVIDERS: Emergency Provider Emergency Medicine; PCP Family Medicine; Visit Provider Emergency Medicine
DX: I48.0 Paroxysmal atrial fibrillation (principal); I13.0 Hypertensive heart and chronic kidney disease with heart failure and stage 1 through stage 4 chronic kidney disease, or unspecified chronic kidney disease; I50.32 Chronic diastolic (congestive) heart failure; E66.01 Morbid (severe) obesity due to excess calories; Z68.42 Body mass index [BMI] 45.0-49.9, adult; E11.42 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 with diabetic polyneuropathy; E11.22 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 with diabetic chronic kidney disease; Z79.4 Long term (current) use of insulin; R79.89 Other specified abnormal findings of blood chemistry; I25.10 Atherosclerotic heart disease of native coronary artery without angina pectoris; N18.9 Chronic kidney disease, unspecified; N40.0 Benign prostatic hyperplasia without lower urinary tract symptoms; I25.2 Old myocardial infarction; K21.9 Gastro-esophageal reflux disease without esophagitis; F32.A Depression, unspecified; F41.9 Anxiety disorder, unspecified; E03.9 Hypothyroidism, unspecified; E78.00 Pure hypercholesterolemia, unspecified; G47.33 Obstructive sleep apnea (adult) (pediatric); M19.90 Unspecified osteoarthritis, unspecified site; Z86.73 Personal history of transient ischemic attack (TIA), and cerebral infarction without residual deficits; Z96.41 Presence of insulin pump (external) (internal); Z87.01 Personal history of pneumonia (recurrent); Z79.82 Long term (current) use of aspirin; Z79.01 Long term (current) use of anticoagulants; Z79.02 Long term (current) use of antithrombotics/antiplatelets; Z79.899 Other long term (current) drug therapy; Z87.442 Personal history of urinary calculi; Z79.890 Hormone replacement therapy
CPT/HCPCS: 71045; 80048; 83735; 84484; 85025; 85379; 93005; 99285; A4216

== ENCOUNTER 2024-03-02 11:04 | Inpatient (IN) | payer OTHER, SELFPAY ==
[2024-03-02] VITALS (17 sets, daily range): BP systolic 129–170; BP diastolic 57–100; PULSE 69–84; RESP 16–24; TEMP 36.5–36.7; O2SAT 94–100; BMI 46.7; BMI 45.8
--- NOTE | 2024-03-02 11:23 | RAD_ITS ---
STUDY: X-RAY CHEST REASON FOR EXAM: Male, 58 years old. Chest pain/pressure TECHNIQUE: PA and lateral views of the chest. COMPARISON: 02/26/2024 FINDINGS: EKG leads overlie the chest Chronic interstitial changes in both lung goldberg without a superimposed acute pulmonary process, no significant interval change. There is no demonstrated pleural abnormality. Normal size heart. Normal mediastinum and darrel. Normal visualized pulmonary arteries. There is atherosclerotic calcification of the aortic arch with tortuosity. There are diffuse degenerative changes of the visualized thoracic spine. Normal visualized ribs, clavicles, and shoulders. There is no demonstrated abnormality of the visualized soft tissue structures of the upper abdomen. RAD/Chest PA and Lateral IMPRESSION: Chronic interstitial changes, no superimposed process or significant interval change Electronically Signed: Issa Goncalves MD at 13:03 EST ,
--- NOTE | 2024-03-02 11:23 | EKG12_ITS ---
Test Reason : SOB Blood Pressure : */* mmHG Vent. Rate : 72 BPM Atrial Rate : 72 BPM P-R Int : 166 ms QRS Dur : 110 ms QT Int : 420 ms P-R-T Axes : 21 -14 9 degrees QTcB Int : 459 ms Normal sinus rhythm Moderate voltage criteria for LVH, may be normal variant ( R in aVL , Pioneer product ) Inferior infarct , age undetermined Abnormal ECG Confirmed by Olman Reyes ([id number]), art editor BETHEL ROONEY ([id number]) on 03/04/2024 5:54:29 AM Referred By: Confirmed By: Olman Reyes
--- NOTE | 2024-03-02 11:46 | EDS_ITS ---
HPI History of Present Illness Chief Complaint: Shortness of Breath Narrative Narrative: Patient is a 66-year-old male with past medical history of iron deficiency anemia, BMI of 45-49, CAD, neuropathy, CKD, heart failure, paroxysmal atrial fibrillation on Eliquis, diabetes, KIANNA, hypertension, hyperlipidemia who presents to the emergency department the chief complaint of shortness of breath. Patient states that he was here on Saturday of the past week and was diagnosed with pneumonia and atrial fibrillation. He states that he did not have to be shocked out of the rhythm. He states that he is on blood thinner medications and has been compliant with these not missing any doses he states he is on Eliquis. Patient notes that he has shortness of breath every single time he tries to move. He states that he is using his 's oxygen and notes that he is on 5 L as when he moves he has his oxygen dropped significantly. Patient denies any recent sick contacts. [facility] Medical History Iron deficiency anemia due to chronic blood loss Morbid obesity with BMI of 45.0-49.9, adult Atherosclerotic heart disease of [place] coronary artery without angina pectoris Peripheral vestibulopathy Ischemic cerebrovascular accident (CVA) Cranial nerve disorder Polyneuropathy Neuropathy Multiple thyroid nodules Microalbuminuria CKD (chronic kidney disease) Thyroid nodule Presence of insulin pump Non-proliferative diabetic retinopathy Vertigo Chronic diastolic CHF (congestive heart failure) Paroxysmal atrial fibrillation Polyneuropathy due to type 2 diabetes mellitus Diabetes KIANNA (obstructive sleep apnea) Mini stroke (~10/01/23) Wears glasses Depression Anxiety Cancer Thyroid disease Insulin dependent diabetes mellitus Arthritis History of renal disease Prostate disease Gastric reflux CPAP (continuous positive airway pressure) dependence Sleep apnea Shortness of breath on exertion History of echocardiogram History of stress test History of CHF (congestive heart failure) Cardiology follow-up encounter History of atrial fibrillation Double vision KIANNA treated with BiPAP Congestive heart failure (CHF) Low testosterone Carotid stenosis High cholesterol Vision loss of right eye Vision loss of left eye Anemia Non-smoker Atrial fibrillation Hypertension Obesity History of non-ST elevation myocardial infarction (NSTEMI) (03/28/20) TIA (transient ischemic attack) (2019) Hodgkin disease GERD (gastroesophageal reflux disease) BPH (benign prostatic hyperplasia) Hypothyroidism Essential (primary) hypertension Anxiety and depression Morbid obesity with BMI of 45.0-49.9, adult Nephrolithiasis Hyperlipidemia Diabetes mellitus, type II Home Medications ?Medication ?Instructions ?Recorded ?Last Taken ?Type levothyroxine 125 mcg tablet 112 mcg PO DAILY thyroid 05/03/15 11/16/23 History tamsulosin 0.4 mg capsule 0.4 mg PO DAILY prostate 09/08/15 11/16/23 History buspirone 10 mg tablet 10 mg PO TID Anxiety 04/17/18 11/16/23 History duloxetine 60 mg capsule,delayed 60 mg PO DAILY depression 04/17/18 11/16/23 History release (Cymbalta) 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 meter,continuous #1 ea 07/26/20 Unknown Rx (Dexcom G6 Block Splitter Operator) pen needle, diabetic 31 gauge x #1,200 ea 12/22/20 Unknown History 08/14 pen needle, diabetic 32 gauge x #150 ea 06/01/21 Unknown Rx (BD Ultra-Fine Kiki Pen Needle) atorvastatin 80 mg tablet (Lipitor) 80 mg PO QHS cholesterol 09/04/21 11/15/23 History 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 transmitter (Dexcom #1 ea 12/29/21 Unknown Rx G6 Transmitter device) infusion set for insulin pump 10/08/22 Unknown History insulin pump controller 10/08/22 Unknown History metoprolol succinate 100 mg 100 mg PO DAILY heart #90 tabs 01/15/23 11/16/23 Rx tablet,extended release 24 hr hydrocodone-acetaminophen 5-325mg 1 tab PO BID pain 02/14/23 11/16/23 History 5mg-325mg 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 sensor (Dexcom G6 #1 ea 02/25/23 Unknown Rx Sensor device) furosemide 40 mg tablet (Lasix) 40 mg PO BID diuretic #180 tabs 04/25/23 11/16/23 Rx apixaban 5 mg tablet (Eliquis) 5 mg PO BID blood thinner #180 tabs 07/21/23 11/16/23 Rx insulin regular hum U-500 conc 500 75 unit (0.15 mL) continuous 11/11/23 11/16/23 Rx unit/mL subcutaneous soln (Humulin subcutaneous infusion DAILY blood R U-500 (Concentrated) Insulin) sugar #20 mL lisinopril 20 mg tablet 40 mg PO DAILY blood pressure 11/13/23 11/16/23 History aspirin 325 mg tablet 325 mg PO DAILY heart health 11/27/23 Unknown History empagliflozin 25 mg tablet 25 mg PO DAILY diabetes #30 tabs 11/27/23 Unknown Rx (Jardiance) clopidogrel 75 mg tablet (Plavix) 75 mg PO DAILY anti platelet 21 12/06/23 Unknown Rx days #30 tabs albuterol sulfate 90 mcg/actuation 2 puff inhalation Q4H PRN 02/06/24 Unknown Rx aerosol inhaler (Ventolin HFA) shortness of breath or wheezing #18 grams pantoprazole 40 mg tablet,delayed 40 mg PO BID acid reflux 30 days 02/17/24 Unknown Rx release (Protonix) #60 tabs fenofibrate 54 mg tablet 54 mg PO DAILY cholesterol #30 tabs 02/23/24 Unknown Rx Allergy/AdvReac Type Severity Reaction Status Date / Time metoclopramide HCl (From Allergy Severe Anaphylaxis Verified 03/02/24 11:15 Reglan) Family History Brother Heart disease Mother CVA (cerebral vascular accident) Hypertension Rheumatoid arthritis Father Diabetes Other Alcohol abuse ulcer disease Surgical History History of cardiac catheterization History of lymph node excision History of left heart catheterization (2009) Hx of nephrolithotomy with removal of calculi History of thoracentesis (2015) Social History household members: spouse and none Smoking Status: Never smoker Electronic Cigarette Use: not used second hand exposure: No alcohol intake: never substance use type: does not use what type of physical activity do you participate in: none ROS ROS ED ROS Narrative Constitutional: Denies any fevers, chills, headaches, lightness, dizziness Eyes: Denies changes vision double vision blurry vision Cardiovascular: Denies chest pain or palpitations Respiratory: Complains of shortness of breath as noted above Abdomen: Denies abdominal pain nausea vomiting diarrhea : Denies any urinary symptoms Neurological: Denies numbness, weakness, tingling Musculoskeletal: Denies back pain Skin: Denies rashes or lesions EXAM Physical Exam Narrative Exam Narrative: General: Patient was lying in bed rest comfortably did not appear to be acute distress Head: Atraumatic, normocephalic Eyes: PERRL bilateral, EOMI bilateral, no conjunctival injection noted Neck: Soft, supple, trachea midline Cardiovascular: Regular rate and rhythm no murmurs gallops rubs are noted Respiratory: Patient has diminished breath sounds at the bases bilaterally Abdomen: Soft, nondistended, no tenderness palpation, bowel sounds present x 4 Extremities: +5/5 strength noted in the bilateral upper and lower extremities, no pedal edema no exam Neurological: Patient following commands knew that he was at [facility] year is 2023 Skin: Warm, dry, intact Const Vital Signs: 03/02/24 11:05 03/02/24 11:17 03/02/24 11:42 Temperature 97.7 F L Temperature Source Oral Pulse Rate 84 Respiratory Rate 18 Respiratory Effort Short of Breath Labored Blood Pressure 129/100 H Blood Pressure Mean 109 Pulse Ox 94 100 Oxygen Delivery Method Nasal Cannula Nasal Cannula Nasal Cannula Oxygen Flow Rate (L/min) 5 5 5 03/02/24 11:44 03/02/24 12:03 03/02/24 12:04 Temperature Temperature Source Pulse Rate 73 Respiratory Rate 16 Respiratory Effort Blood Pressure 170/61 H Blood Pressure Mean 97 Pulse Ox 100 100 94 Oxygen Delivery Method Nasal Cannula Nasal Cannula Room Air Oxygen Flow Rate (L/min) 3 2 03/02/24 12:24 03/02/24 12:28 03/02/24 12:50 Temperature Temperature Source Pulse Rate 71 69 Respiratory Rate 22 H 20 H Respiratory Effort Blood Pressure 139/57 H 138/70 H Blood Pressure Mean 84 92 Pulse Ox 99 99 100 Oxygen Delivery Method Nasal Cannula Nasal Cannula Nasal Cannula Oxygen Flow Rate (L/min) 2 2 2 03/02/24 14:00 Temperature Temperature Source Pulse Rate 77 Respiratory Rate 18 Respiratory Effort Blood Pressure 154/89 H Blood Pressure Mean 110 Pulse Ox 99 Oxygen Delivery Method Nasal Cannula Oxygen Flow Rate (L/min) 2 MDM MDM MDM Narrative Medical decision making narrative: Patient is a 58-year-old male who presented to the emergency department with a chief complaint of shortness of breath on exertion. He states that once again he is on 5 L of oxygen at home which is his 's and he states that prior to Saturday of this past week he was on no oxygen at all. Patient will have a workup performed here on the differential diagnose includes but not limited to CHF, ACS, pneumonia, pneumothorax. Once workup is obtained reviewed he will be reevaluated. Patient CBC reviewed and showed no evidence leukocytosis white blood count normal at 9, hemoglobin stable at 9.3, patient's MCV was noted to be 76.6 which is chronic for him, patient sodium normal 136, potassium normal at 4, creatinine normal at 1.03. Patient's troponin was noted be normal at 35 with a proBNP normal at 48.5. Patient's EKG was reviewed by myself and showed a rate of 72 beats per minutes nonspecific ST changes noted This was compared to a previous EKG from 01/21/2024 which is largely unchanged. Patient's chest x-ray reviewed by myself and by radiology which showed chronic interstitial changes no superimposed processes or significant interval change noted. Patient tested negative for COVID flu and RSV. We were able to wean the patient's oxygen from 5 L down to 2 L and ultimately off. The patient was then ambulated and he desaturated to 88%. At this point in time do believe the patient will warrant admission for acute hypoxic respiratory failure will discuss case with hospitalist. Did discuss case with hospitalist Dr. Berrios who accept patient for admission. Patient notified with all question concerns answered. Lab Data Labs: Laboratory Results - last 24 hr 03/02/24 12:00 WBC 9.0 RBC 4.19 L Hgb 9.3 L Hct 32.1 L MCV 76.6 L MCH 22.2 L MCHC 29.0 L RDW Std Deviation 49.2 H RDW Coeff of Gavi 17.9 H Plt Count 242 MPV 10.6 Immature Gran % (Auto) 0.400 Neut % (Auto) 73.9 H Lymph % (Auto) 14.4 L [place] % (Auto) 8.3 Eos % (Auto) 2.4 Baso % (Auto) 0.6 Absolute Neuts (auto) 6.6 Absolute Lymphs (auto) 1.30 Nucleated RBC % 0 Sodium 136 Potassium 4.0 Chloride 107 Carbon Dioxide 24.0 Anion Gap 6 BUN 24 H Creatinine 1.03 Estim Creat Clear Calc 107.77 Est GFR (MDRD) Af Amer 95 Est GFR (MDRD) Non-Af 78 BUN/Creatinine Ratio 23.3 H Glucose 220 H Calcium 9.0 Troponin I High Sens 35 B-Natriuretic Peptide 48.5 Radiography Diagnostic Testing: Clinical Impression(s) from Imaging Studies Chest X-Ray 03/02/24 11:23 IMPRESSION: Chronic interstitial changes, no superimposed process or significant interval change Electronically Signed: Issa Goncalves MD at 13:03 EST , Discharge Plan Triage Chief Complaint: Shortness of Breath ED Provider: Petr Guardado Dx/Rx/DC Orders Clinical Impression: Acute hypoxemic respiratory failure Prescriptions: No Action (DME) Dexcom G6 Block Splitter Operator Misc See Rx Instructions .ROUTE .MEDSUPPLY Qty: 1 0RF Rx Instructions: As directed (DME) pen needle, diabetic 31 gauge x 5/16 needle See Rx Instructions .ROUTE .MEDSUPPLY Qty: 1200 Patient Comments: use 1 PEN NEEDLE to inject MEDICATION subcutaneously as directed Rx Instructions: As directed (DME) pen needle, diabetic [BD Ultra-Fine Kiki Pen Needle] 32 gauge x 5/32 n eedle See Rx Instructions .ROUTE .MEDSUPPLY Qty: 150 6RF Rx Instructions: As directed (DME) infusion set for insulin pump Infusion Set See Rx Instructions .Route Rx Instructions: As directed (DME) insulin pump controller Misc See Rx Instructions .Route Rx Instructions: As directed aspirin 325 mg tablet 325 mg PO DAILY Jardiance 25 mg tablet 25 mg PO DAILY Qty: 30 5RF clopidogrel [Plavix] 75 mg tablet 75 mg PO DAILY 21 Days Qty: 30 11RF Patient Comments: PT WAS SUPPOSED TO START TODAY, 11/16/23, HASNT STARTED YET fenofibrate 54 mg tablet 54 mg PO DAILY Qty: 30 6RF levothyroxine 125 MCG tablet 112 mcg PO DAILY tamsulosin 0.4 MG capsule 0.4 mg PO DAILY buspirone 10 MG tablet 10 mg PO TID Rx Instructions: pt states he usually takes 1 daily duloxetine [Cymbalta] 60 MG capsule,delayed release(DR/EC) 60 mg PO DAILY atorvastatin [Lipitor] 80 MG tablet 80 mg PO QHS Rx Instructions: cholesterol hydrocodone-acetaminophen 5-325 mg tablet 1 tab PO BID lisinopril 20 mg tablet 40 mg PO DAILY (DME) Dexcom G6 Transmitter Device See Rx Instructions .ROUTE .MEDSUPPLY Qty: 1 3RF Rx Instructions: As directed metoprolol succinate 100 mg tablet extended release 24 hr 100 mg PO DAILY Qty: 90 3RF (DME) Dexcom G6 Sensor Device See Rx Instructions .ROUTE .MEDSUPPLY Qty: 1 6RF Rx Instructions: As directed furosemide [Lasix] 40 mg tablet 40 mg PO BID Qty: 180 3RF Eliquis 5 mg tablet 5 mg PO BID Qty: 180 3RF Humulin R U-500 (Conc) Insulin 500 unit/mL solution 75 unit continuous subcutaneous infusion DAILY Qty: 20 5RF Patient Comments: INSULIN PUMP albuterol sulfate [Ventolin HFA] 90 mcg/actuation HFA aerosol inhaler 2 puff inhalation Q4H PRN (Reason: shortness of breath or wheezing) Qty: 18 6RF pantoprazole [Protonix] 40 mg tablet,delayed release (DR/EC) 40 mg PO BID 30 Days Qty: 60 0RF Primary Care Provider: Radha Khan Referrals: Radha Khan MD [Primary Care Provider] - Print Language: Lao Disposition Disposition: Acute Care Hospital [facility]
[2024-03-02 12:12] LABS: Absolute Neutrophil Count 6.6 X10^3/uL (2.0-7.7); Basophil# 0.05 X10^3/uL; Basophil% 0.6 % (0-1); Eosinophil# 0.22 X10^3/uL; Eosinophils% 2.4 % (0-5); Hematocrit 32.1 % (40-54); Hemoglobin 9.3 g/dL (13.0-16.5); Lymphocyte % 14.4 % (19-41); Mean Corpuscular Hgb 22.2 pg (27.0-32.0); Mean Corpuscular Volume 76.6 fL (80-94); Mean Platelet Vol. 10.6 fl (6.2-12.0); Monocyte# 0.75 X10^3/uL; Monocyte% 8.3 % (0-10); NRBC Flagged by Analyzer 0 % (0-5); Neutrophil # 6.64 X10^3/uL (2.7-7.7); Neutrophil % 73.9 % (47-70); Platelet Count 242 K/mm3 (150-450); RBC Distribution Width CV 17.9 % (11.6-14.6); RBC Distribution Width SD 49.2 fl (35.1-43.9); Red Blood Count 4.19 M/mm3 (4.6-6.2)
[2024-03-02 12:36] LABS: Anion Gap 6 (5-15); BUN 24 mg/dL (7-18); BUN/Creat Ratio 23.3 RATIO (10-20); Chloride 107 mmol/L (98-107); Creatinine, Serum 1.03 mg/dL (0.70-1.30); EST Glomerular Filtration Rate 78 mL/min (>60); Est Glom Filt Rate - Afr Amer 95 mL/min (>60); Estimated Creatinine Clearance 107.77 ml/min; Glucose 220 mg/dL (74-106); Sodium Level 136 mmol/L (136-145); Troponin-I HS 35 pg/mL (3.0-78.0)
[2024-03-02 12:59] LABS: BNP,B-Type NATRIURETIC PEPTIDE 48.5 pg/mL (0-100)
--- NOTE | 2024-03-02 15:26 | PCM.HP.STD ---
[facility] - General General Date of Admission: 03/02/24 Date of Service: 03/02/24 HPI Narrative KRUNAL LEOS, is a 58-year-old male history of BPH, A-fib, morbid obesity, CVA, anxiety, chronic heart failure preserved ejection fraction, diabetes, hypothyroidism, GERD who presented [facility] ED 03/02/2024 due to increased shortness of breath. Was here Saturday of the past week and diagnosed with pneumonia and A-fib and was discharged home. Now has had increasing shortness of breath every time he tries to move and started wearing his 's oxygen at home up to 5 L due to low oxygen. Patient was weaned down to 2 L nasal cannula, troponin within normal limits, BNP 48.5 and chest x-ray with no acute process. Given unclear reason for his hypoxia hospitalist contacted for admission. Patient evaluated bedside. He reports that last Saturday he had been short of breath and then on Saturday he went to check his pulse ox months when he noted he was in A-fib with elevated rate prompting him to come to the hospital early morning. Heart rate improved and patient discharged home 20 felt better on but since then he has had shortness of breath on exertion with his oxygen dropping requiring him to use a family members oxygen. When he is just laying there is not been a problem however on ambulation it is caused him significant distress though he does not necessarily think it has been worsening over the past 4 days but nor is it improving. Reports he has possibly had some slight nasal congestion and sneezing and possible minimal cough but ROS otherwise negative. No swelling lower extremities, has not had any further episodes or problems with A-fib since he was in the ED. Does report he was worried it could have to do with his blood counts as he has been worked up for his anemia on outpatient basis but it appears this has been stable over the past 1 to 2 months and he has not noticed any rectal bleeding bleeding this past week. Patient does report compliance with his Eliquis, aspirin, and Plavix. He has CPAP at home but due to some nasal congestion has not wore this for about a week but reports prior to that he is usually compliant however if he misses days he does not have shortness of breath like this and does not feel it is related. [facility] Medical History Iron deficiency anemia due to chronic blood loss Morbid obesity with BMI of 45.0-49.9, adult Atherosclerotic heart disease of [place] coronary artery without angina pectoris Peripheral vestibulopathy Ischemic cerebrovascular accident (CVA) Cranial nerve disorder Polyneuropathy Neuropathy Multiple thyroid nodules Microalbuminuria CKD (chronic kidney disease) Thyroid nodule Presence of insulin pump Non-proliferative diabetic retinopathy Vertigo Chronic diastolic CHF (congestive heart failure) Paroxysmal atrial fibrillation Polyneuropathy due to type 2 diabetes mellitus Diabetes KIANNA (obstructive sleep apnea) Mini stroke (~10/01/23) Wears glasses Depression Anxiety Cancer Thyroid disease Insulin dependent diabetes mellitus Arthritis History of renal disease Prostate disease Gastric reflux CPAP (continuous positive airway pressure) dependence Sleep apnea Shortness of breath on exertion History of echocardiogram History of stress test History of CHF (congestive heart failure) Cardiology follow-up encounter History of atrial fibrillation Double vision KIANNA treated with BiPAP Congestive heart failure (CHF) Low testosterone Carotid stenosis High cholesterol Vision loss of right eye Vision loss of left eye Anemia Non-smoker Atrial fibrillation Hypertension Obesity History of non-ST elevation myocardial infarction (NSTEMI) (03/28/20) TIA (transient ischemic attack) (2019) Hodgkin disease GERD (gastroesophageal reflux disease) BPH (benign prostatic hyperplasia) Hypothyroidism Essential (primary) hypertension Anxiety and depression Morbid obesity with BMI of 45.0-49.9, adult Nephrolithiasis Hyperlipidemia Diabetes mellitus, type II Home Medications ?Medication ?Instructions ?Recorded ?Last Taken ?Type levothyroxine 125 mcg tablet 112 mcg PO DAILY thyroid 05/03/15 11/16/23 History tamsulosin 0.4 mg capsule 0.4 mg PO DAILY prostate 09/08/15 11/16/23 History buspirone 10 mg tablet 10 mg PO TID Anxiety 04/17/18 11/16/23 History duloxetine 60 mg capsule,delayed 60 mg PO DAILY depression 04/17/18 11/16/23 History release (Cymbalta) 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 meter,continuous #1 ea 07/26/20 Unknown Rx (Dexcom G6 Dog Catcher) pen needle, diabetic 31 gauge x #1,200 ea 12/22/20 Unknown History 08/14 pen needle, diabetic 32 gauge x #150 ea 06/01/21 Unknown Rx (BD Ultra-Fine Kiki Pen Needle) atorvastatin 80 mg tablet (Lipitor) 80 mg PO QHS cholesterol 09/04/21 11/15/23 History 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 transmitter (Dexcom #1 ea 12/29/21 Unknown Rx G6 Transmitter device) infusion set for insulin pump 10/08/22 Unknown History insulin pump controller 10/08/22 Unknown History metoprolol succinate 100 mg 100 mg PO DAILY heart #90 tabs 01/15/23 11/16/23 Rx tablet,extended release 24 hr hydrocodone-acetaminophen 5-325mg 1 tab PO BID pain 02/14/23 11/16/23 History 5mg-325mg 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 sensor (Dexcom G6 #1 ea 02/25/23 Unknown Rx Sensor device) furosemide 40 mg tablet (Lasix) 40 mg PO BID diuretic #180 tabs 04/25/23 11/16/23 Rx apixaban 5 mg tablet (Eliquis) 5 mg PO BID blood thinner #180 tabs 07/21/23 11/16/23 Rx insulin regular hum U-500 conc 500 75 unit (0.15 mL) continuous 11/11/23 11/16/23 Rx unit/mL subcutaneous soln (Humulin subcutaneous infusion DAILY blood R U-500 (Concentrated) Insulin) sugar #20 mL lisinopril 20 mg tablet 40 mg PO DAILY blood pressure 11/13/23 11/16/23 History aspirin 325 mg tablet 325 mg PO DAILY heart health 11/27/23 Unknown History empagliflozin 25 mg tablet 25 mg PO DAILY diabetes #30 tabs 11/27/23 Unknown Rx (Jardiance) clopidogrel 75 mg tablet (Plavix) 75 mg PO DAILY anti platelet 21 12/06/23 Unknown Rx days #30 tabs albuterol sulfate 90 mcg/actuation 2 puff inhalation Q4H PRN 02/06/24 Unknown Rx aerosol inhaler (Ventolin HFA) shortness of breath or wheezing #18 grams pantoprazole 40 mg tablet,delayed 40 mg PO BID acid reflux 30 days 02/17/24 Unknown Rx release (Protonix) #60 tabs fenofibrate 54 mg tablet 54 mg PO DAILY cholesterol #30 tabs 02/23/24 Unknown Rx Allergy/AdvReac Type Severity Reaction Status Date / Time metoclopramide HCl (From Allergy Severe Anaphylaxis Verified 03/02/24 11:15 Reglan) Family History Brother Heart disease Mother CVA (cerebral vascular accident) Hypertension Rheumatoid arthritis Father Diabetes Other Alcohol abuse ulcer disease Surgical History History of cardiac catheterization History of lymph node excision History of left heart catheterization (2009) Hx of nephrolithotomy with removal of calculi History of thoracentesis (2016) Social History household members: spouse and none Smoking Status: Never smoker Electronic Cigarette Use: not used second hand exposure: No alcohol intake: never substance use type: does not use what type of physical activity do you participate in: none ROS ROS Narrative General: Denies fever/chills HENT: Denies headache, slight stuffy nose, denies sore throat EYES: Denies changes in vision Resp: Possible occasional minimal cough, denies shortness of breath Cardiac: Denies chest pain GI: Denies abdominal pain, denies changes in bowel, denies nausea/vomiting : Denies changes in urination Extremity: Denies swelling MSK: Denies weakness Neuro: Denies any numbness/tingling Heme: Denies any bleeding or bruising Skin: Denies rashes Psychiatric: No complaints voiced Vital Signs Vital Signs Vital Signs: 03/02/24 11:05 03/02/24 11:17 03/02/24 11:42 Temperature 97.7 F L Temperature Source Oral Pulse Rate 84 Respiratory Rate 18 Respiratory Effort Short of Breath Labored Blood Pressure 129/100 H Blood Pressure Mean 109 Pulse Ox 94 100 Oxygen Delivery Method Nasal Cannula Nasal Cannula Nasal Cannula Oxygen Flow Rate (L/min) 5 5 5 03/02/24 11:44 03/02/24 12:03 03/02/24 12:04 Temperature Temperature Source Pulse Rate 73 Respiratory Rate 16 Respiratory Effort Blood Pressure 170/61 H Blood Pressure Mean 97 Pulse Ox 100 100 94 Oxygen Delivery Method Nasal Cannula Nasal Cannula Room Air Oxygen Flow Rate (L/min) 3 2 03/02/24 12:24 03/02/24 12:28 03/02/24 12:50 Temperature Temperature Source Pulse Rate 71 69 Respiratory Rate 22 H 20 H Respiratory Effort Blood Pressure 139/57 H 138/70 H Blood Pressure Mean 84 92 Pulse Ox 99 99 100 Oxygen Delivery Method Nasal Cannula Nasal Cannula Nasal Cannula Oxygen Flow Rate (L/min) 2 2 2 03/02/24 14:00 Temperature Temperature Source Pulse Rate 77 Respiratory Rate 18 Respiratory Effort Blood Pressure 154/89 H Blood Pressure Mean 110 Pulse Ox 99 Oxygen Delivery Method Nasal Cannula Oxygen Flow Rate (L/min) 2 Weight Weight: 143.7 kg Body Mass Index (BMI) 46.7 Physical Exam Narrative General: Alert, oriented, no apparent distress HEENT: Atraumatic, normocephalic Eyes: Anicteric, normal conjunctiva, extraocular movements grossly intact Neck: Supple Respiratory: Normal respiratory effort, some possible fine crackles at the bases with no wheezing or rhonchi Cardiovascular: Regular rate and rhythm GI: Soft, nontender, nondistended Extremities: No pitting edema Musculoskeletal: Moving all extremities Neuro: No overt focal neurological deficits Skin: No rashes appreciated Psych: Cooperative Results Lab / Micro Data 03/02/24 12:00 03/02/24 12:00 Labs: Laboratory Results - last 24 hr 03/02/24 12:00: WBC 9.0, RBC 4.19 L, Hgb 9.3 L, Hct 32.1 L, MCV 76.6 L, MCH 22.2 L, MCHC 29.0 L, RDW Std Deviation 49.2 H, RDW Coeff of Gavi 17.9 H, Plt Count 242, MPV 10.6, Immature Gran % (Auto) 0.400, Neut % (Auto) 73.9 H, Lymph % (Auto) 14.4 L, Navarro % (Auto) 8.3, Eos % (Auto) 2.4, Baso % (Auto) 0.6, Absolute Neuts (auto) 6.6, Absolute Lymphs (auto) 1.30, Nucleated RBC % 0, Sodium 136, Potassium 4.0, Chloride 107, Carbon Dioxide 24.0, Anion Gap 6, BUN 24 H, Creatinine 1.03, Estim Creat Clear Calc 107.77, Est GFR (MDRD) Af Amer 95, Est GFR (MDRD) Non-Af 78, BUN/Creatinine Ratio 23.3 H, Glucose 220 H, Calcium 9.0, Troponin I High Sens 35, B-Natriuretic Peptide 48.5 Micro: Microbiology 03/02/24 11:40 Mucosa - Nose SARS-CoV-2, Influenza & RSV (PCR) - Final Imaging Radiology Impression Chest X-Ray 03/02/24 11:23 IMPRESSION: Chronic interstitial changes, no superimposed process or significant interval change Electronically Signed: Issa Goncalves MD at 13:03 EST Reading Location ID and State: [facility] / [place] , Service support , Assessment & Plan Assessment/Plan (1) Hypoxia: PLAN: Plan #Hypoxia of unclear etiology -Patient denies any history of COPD, has documented history of stage I diastolic dysfunction but denies any increased swelling and x-ray does not appear to have any acute process -COVID-negative, will check full viral panel -Patient did have A-fib with RVR and was in the ED for this several days ago, had elevated troponin at the time but it was felt that this was rate dependent and did not necessitate admission at that time and was appropriate for outpatient follow-up, has not had problems with A-fib since then however has shortness of breath on exertion since that time, last echo 08/02/2022 with EF of 60% and mild concentric left ventricular hypertrophy, will repeat echocardiogram given recent RVR with elevation troponin and unclear etiology of patient's hypoxia and shortness of breath -Can consider cardiology consult pending results -Will monitor daily weights and I's and O's -Incentive spirometry -If viral panel negative and echo unrevealing could consider a CTA for PE but patient reports compliance with his triple therapy and patient has no signs or symptoms of DVT, is not tachycardic or with recent immobilization, no hemoptysis or known malignancy or other evidence suggestive of PE. -Will check TSH, CPAP nightly -Will have ipratropium nebs as needed, given recent A-fib with RVR with elevated troponin would be hesitant to use albuterol given no history of COPD and no wheezing -Given normal BNP, chest x-ray with no acute changes, patient not feeling that he is having any increased swelling or fluid retention we will continue home Lasix dosing # History of afib -On Eliquis, continue anticoagulation and beta-renuka #KIANNA -Continue home NIPPV #Hypertension -Continue medications # Chronic heart failure with preserved ejection fraction -Last echo 08/02/2022 with EF of 60% and mild concentric left ventricular hypertrophy -Daily weights, I's and O's -Given normal BNP, chest x-ray with no acute changes, patient not feeling that he is having any increased swelling or fluid retention we will continue home Lasix dosing #Hx CVA/history of carotid stenosis -Patient on aspirin, Plavix, Eliquis -Patient had recurrent strokes despite being on aspirin and Eliquis so Plavix was added to this several months ago and patient followed up with vascular surgery, since patient has been on triple therapy he has had no further CVAs so this was continued through the vascular office unless any adverse events were to develop -Will continue triple therapy #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 -Glucose checks and sliding scale insulin -Continue home insulin regimen will hold Jardiance #Hypothyroidism -Continue Synthroid #Depression/anxiety -Continue home medications #GERD -Continue PPI #Morbid obesity -BMI documented as 46.8 kg/m? at time of admission -Complicates treatment, prognosis, outcomes -Recommend weight loss and lifestyle changes #Chronic BPH with obstruction -Continue home medications #DVT ppx: On Eliquis Xiao Berrios MD Charges/Coding Visit Charges Inpatient E&M: 54929 Init Hosp L2
--- NOTE | 2024-03-02 16:20 | ECHOCS_ITS ---
Reason For Study: SHORTNESS OF BREATH Procedure This was a 2D Doppler, Color Flow transthoracic echocardiogram. The study was technically difficult. Contrast injection was performed. Exam performed portable in patient room. Left Ventricle Normal LV size. The estimated ejection fraction is 60 %. Unable to assess diastolic dysfunction. No regional wall motion abnormalities noted. Right Ventricle Normal RV size. Normal systolic function. Atria The left and right atria are normal. No doppler evidence for ASD. Mitral Valve There is moderate to severe mitral annular calcification. There is no mitral valve stenosis. Trivial mitral valve insufficiency. Tricuspid Valve There is no tricuspid stenosis. Unable to estimate RV systolic pressure due to inadequate jet, pulmonary artery pressure probably normal. Aortic Valve Mild aortic stenosis. No aortic valve insufficiency. Pulmonic Valve There is no pulmonic valvular stenosis. No pulmonic valve insufficiency. Great Vessels Normal aortic root. Pericardium/Pleural No pericardial effusion. Medication 22 gauge I.V. with prn adaptor inserted into right arm. Diluted definity 2ml given slow IV push to enhance endocardial definition. MMode/2D Measurements & Calculations LVIDd: 4.9 cm IVSd: 1.7 cm LVOT diam: 2.0 cm LVIDs: 3.4 cm LVPWd: 1.5 cm RVDd: 3.7 cm FS: 31.4 % LVOT area: 3.0 cm2 asc Aorta Diam: 3.3 cm LAV(MOD-bp): 54.8 ml LVAd ap4: 43.5 cm2 LAV(MOD-bp) Indexed: 22.0 ml/m2 LVLd ap4: 9.0 cm LAV(MOD-sp2): 69.3 ml EDV(MOD-sp4): 165.8 ml LAV(MOD-sp4): 43.2 ml EDV(sp4-el): 178.9 ml LVAs ap4: 25.7 cm2 LVLs ap4: 7.7 cm ESV(MOD-sp4): 68.8 ml ESV(sp4-el): 72.7 ml EF(MOD-sp4): 58.5 % EF(sp4-el): 59.3 % LVAd ap2: 42.3 cm2 SV(MOD-sp4): 97.0 ml SV(MOD-sp2): 89.4 ml LVLd ap2: 9.2 cm SI(MOD-sp4): 39.0 ml/m2 SI(MOD-sp2): 36.0 ml/m2 EDV(MOD-sp2): 155.9 ml EDV(sp2-el): 165.6 ml LVAs ap2: 26.0 cm2 LVLs ap2: 8.3 cm ESV(MOD-sp2): 66.5 ml ESV(sp2-el): 69.2 ml EF(MOD-sp2): 57.3 % SV(sp4-el): 106.1 ml Ao sinus diam: 3.[address] Junction: 3.1 cm LA dimension(2D): 3.5 cm LA A4 area: 18.2 cm2 RA A4 area: 13.3 cm2 TAPSE: 1.6 cm Time Measurements MV dec time: 0.19 sec Doppler Measurements & Calculations MV E max chin: 112.8 cm/sec Lat Peak E' Chin: 11.3 cm/sec Med Peak E' Chin: 6.3 cm/sec MV A max chin: 100.5 cm/sec E/E' lat: 10.0 E/E' med: 17.9 MV E/A: 1.1 MV V2 max: 94.4 cm/sec MV dec slope: 584.5 cm/sec2 Ao V2 max: 180.9 cm/sec MV max P.6 mmHg Ao max P.1 mmHg MV V2 mean: 71.6 cm/sec Ao V2 mean: 133.4 cm/sec MV mean P.2 mmHg Ao mean P.8 mmHg MV V2 VTI: 27.0 cm Ao V2 VTI: 37.7 cm MVA(VTI): 2.4 cm2 AV (velocity ratio): 0.58 BAHMAN(I,D): 1.7 cm2 BAHMAN(V,D): 1.7 cm2 LV V1 max: 99.9 cm/sec SV(LVOT): 65.5 ml PA V2 max: 89.7 cm/sec LV V1 max P.0 mmHg LV V1 mean P.0 mmHg LV V1 mean: 65.7 cm/sec LV V1 VTI: 21.7 cm ECHO/Echo Complete W/ Contrast Interpretation Summary The estimated ejection fraction is 60 %. Trivial mitral valve insufficiency. Mild aortic stenosis. Unable to assess diastolic dysfunction. Ordering Physician: Xiao Berrios Referring Physician: Radha Khan M.D. Performed By: Trinidad Johnson RDCS
[2024-03-02] MEDS: Acetaminophen 325 MG Tablet 650 MG PO (19:55)
[2024-03-02] MEDS: Atorvastatin Calcium 80 MG Tablet PO (22:08)
[2024-03-02] MEDS: busPIRone 5 MG Tablet 10 MG PO (22:08)
[2024-03-02] MEDS: APIXABAN 5 MG TABLET PO (22:09)
[2024-03-02] MEDS: Pantoprazole Sodium 40 MG Tablet PO (22:09)
[2024-03-02] MEDS: Furosemide 40 MG Tablet PO (22:09)
[2024-03-03] VITALS (8 sets, daily range): BP systolic 107–170; BP diastolic 45–87; PULSE 74–79; RESP 18–20; TEMP 36.3–36.6; O2SAT 88–98; BMI 45.8; BMI 45.9
[2024-03-03] MEDS: busPIRone 5 MG Tablet 10 MG PO ×3 (05:10→21:07)
[2024-03-03] MEDS: Levothyroxine 112 MCG Tablet PO (05:11)
[2024-03-03] MEDS: Acetaminophen 325 MG Tablet 650 MG PO (05:12)
[2024-03-03 06:39] LABS: Absolute Lymphocyte Count 1.46 X10^3/uL (0.83-4.51); Absolute Neutrophil Count 5.9 X10^3/uL (2.0-7.7); Basophil# 0.05 X10^3/uL; Basophil% 0.6 % (0-1); Eosinophil# 0.25 X10^3/uL; Eosinophils% 2.9 % (0-5); Hematocrit 31.2 % (40-54); Lymphocyte # 1.46 X10^3/ul (0.83-4.51); Lymphocyte % 17.2 % (19-41); Mean Corp Hgb Conc 28.8 g/dL (32-36); Mean Corpuscular Hgb 21.9 pg (27.0-32.0); Mean Corpuscular Volume 75.9 fL (80-94); Mean Platelet Vol. 9.8 fl (6.2-12.0); Monocyte# 0.79 X10^3/uL; Monocyte% 9.3 % (0-10); NRBC Flagged by Analyzer 0 % (0-5); Neutrophil # 5.92 X10^3/uL (2.7-7.7); Neutrophil % 69.6 % (47-70); Platelet Count 227 K/mm3 (150-450); RBC Distribution Width CV 17.6 % (11.6-14.6); RBC Distribution Width SD 47.8 fl (35.1-43.9); Red Blood Count 4.11 M/mm3 (4.6-6.2); White Blood Count 8.5 K/mm3 (4.4-11.0)
[2024-03-03] MEDS: DULoxetine Hcl 60 MG Capsule PO (10:15)
[2024-03-03] MEDS: Aspirin 325 MG Tablet PO (10:15)
[2024-03-03] MEDS: Furosemide 40 MG Tablet PO ×2 (10:15→21:07)
[2024-03-03] MEDS: Lisinopril 40 MG Tablet PO (10:15)
[2024-03-03] MEDS: Pantoprazole Sodium 40 MG Tablet PO ×2 (10:15→21:07)
[2024-03-03] MEDS: Tamsulosin HCl 0.4 MG Capsule PO (10:15)
[2024-03-03] MEDS: Fenofibrate 48 MG Tablet PO (10:15)
[2024-03-03] MEDS: APIXABAN 5 MG TABLET PO ×2 (10:15→21:07)
[2024-03-03] MEDS: Metoprolol(XL)Succ 100 MG Tablet PO (10:15)
[2024-03-03] MEDS: Clopidogrel Bisulfate 75 MG Tablet PO (10:15)
--- NOTE | 2024-03-03 10:17 | CASEMGMT ---
CAMILA LUCERO Assessment: Face to Face with pt for initial transition planning/care coordination assessment. CAMILA LUCERO introduced self and role at [facility], pt voices understanding and consents to assessment. Pt is A&O x4 and answers all questions appropriately at this time. Care providers, pharmacy, and demographics verified/updated. Strata:3 Admitting Dx: Acute Hypoxic respiratory failure PCP: Bill Specialists: Dilia, vascular; [facility]; Marielena, Endo; Soo, Neuro; Deanna, Nephrology. Preferred Pharmacy: [facility] Insurance: MMO Prescription Benefit: yes LNOK: , Michaelle; Daughter, Tia Living Arrangements: Pt lives with , daughter, son-in-law, grandkids in a 1 story home with 3 steps to enter. ADLs: I at baseline Transportation: Pt drives self and denies concerns with transportation. DME: [employer], glucometer and supplies, BiPap. Nebulizer, Uses wifes O2 at home, through [employer]. Would like to use [employer] if Pt requires O2 at time of DC. HHC/SNF: Denies Hx of. Pt states no concerns with going home at time of dc. Pt states no further concerns/needs. CM to follow. Advised pt to ask CM if any further question/concerns/needs arise, voices understanding. Pt Goal: Home Plan: Home, Follow for O2 needs. Deny JENSEN CM
--- NOTE | 2024-03-03 13:50 | CON.PCM.CC_ITS ---
Assessment & Plan Assessment/Plan (1) Exertional shortness of breath: PLAN: Plan RECOMMENDATIONS: 1. Supplemental oxygen, if needed, to maintain saturations at or above 90%. 2. Obtain high-res CT chest while admitted to the hospital. 3. Encourage incentive spirometer use and mobilize patient as tolerated. 4. Recommend continuing PAP therapy per home regimen. IMPRESSIONS: 1. Exertional shortness of breath and hypoxemia Unclear etiology. The patient does not appear to be in acute decompensated heart failure. Given that he does have pulmonary function studies that demonstrated a moderate restrictive impairment with symmetric reduction in diffusion capacity and does have rales noted on exam, will obtain high- resolution chest CT to evaluate for possible interstitial lung disease. Further recommendations will be forthcoming, pending the outcome of his CT scan. In the interim, continue supplemental oxygen to maintain saturations at or above 90%. 2. History of obstructive sleep apnea/heart failure with preserved ejection fraction/hypothyroidism/GERD/anemia/obesity Complicates care, management, recovery and prognosis. Continue home medications as indicated. Recommend continuing nocturnal PAP therapy per home regimen. This note was generated with [employer] dictation software. It may contain incorrect words, spelling, and punctuation that were not noted in checking the note before signing. HPI Consult Data Date of Consult: 03/03/24 HPI Narrative Reason for Consultation: Hypoxia and shortness of breath HPI Narrative: The patient is a 58-year-old male, with a history as outlined below, who presented to the emergency department on March 02 with worsening shortness of breath. The patient reported that recently he has been experiencing transient episodes of atrial fibrillation, which he believed was causing his shortness of breath. The patient is currently followed in the pulmonary medicine office on an outpatient basis due to a history of obstructive sleep apnea and restrictive lung disease. The patient is not currently prescribed supplemental oxygen at his baseline. He has a reported history of heart failure with preserved ejection fraction and is on an outpatient diuretic regimen. He denies any high risk occupational or environmental exposure history. On presentation to the emergency department, the patient was documented to be afebrile and hemodynamically stable. Laboratory evaluation revealed a normal white blood cell count. Hemoglobin was stable at 9.3 g/dL. Chemistry profile was unremarkable. Troponin and BNP were within normal limits. Initial chest x- ray demonstrated chronic interstitial changes. Thus far, the patient has tested negative for COVID, influenza and RSV. Respiratory viral panel is currently pending. The patient ultimately was admitted to the hospital and placed on his baseline diuretic regimen. Despite the aforementioned, the patient has continued to require 2 L/min of oxygen with exertion. The patient did have pulmonary function studies in October 2023 which demonstrated a moderate restrictive ventilatory impairment with symmetric reduction in diffusing capacity. The patient did complete a 6-minute walk test in September 2023 which did demonstrate significant exertional oxygen desaturation. However, the guera saturation was only 91%. Therefore, the patient did not qualify for supplemental oxygen at that time. FOR[facility], LATER [facility] Medical History Iron deficiency anemia due to chronic blood loss Morbid obesity with BMI of 45.0-49.9, adult Atherosclerotic heart disease of [place] coronary artery without angina pectoris Peripheral vestibulopathy Ischemic cerebrovascular accident (CVA) Cranial nerve disorder Polyneuropathy Neuropathy Multiple thyroid nodules Microalbuminuria CKD (chronic kidney disease) Thyroid nodule Presence of insulin pump Non-proliferative diabetic retinopathy Vertigo Chronic diastolic CHF (congestive heart failure) Paroxysmal atrial fibrillation Polyneuropathy due to type 2 diabetes mellitus Diabetes KIANNA (obstructive sleep apnea) Mini stroke (~10/01/23) Wears glasses Depression Anxiety Cancer Thyroid disease Insulin dependent diabetes mellitus Arthritis History of renal disease Prostate disease Gastric reflux CPAP (continuous positive airway pressure) dependence Sleep apnea Shortness of breath on exertion History of echocardiogram History of stress test History of CHF (congestive heart failure) Cardiology follow-up encounter History of atrial fibrillation Double vision KIANNA treated with BiPAP Congestive heart failure (CHF) Low testosterone Carotid stenosis High cholesterol Vision loss of right eye Vision loss of left eye Anemia Non-smoker Atrial fibrillation Hypertension Obesity History of non-ST elevation myocardial infarction (NSTEMI) (03/28/20) TIA (transient ischemic attack) (2018) Hodgkin disease GERD (gastroesophageal reflux disease) BPH (benign prostatic hyperplasia) Hypothyroidism Essential (primary) hypertension Anxiety and depression Morbid obesity with BMI of 45.0-49.9, adult Nephrolithiasis Hyperlipidemia Diabetes mellitus, type II Home Medications ?Medication ?Instructions ?Recorded ?Last Taken ?Type levothyroxine 125 mcg tablet 112 mcg PO DAILY thyroid 05/03/15 11/16/23 History tamsulosin 0.4 mg capsule 0.4 mg PO DAILY prostate 09/08/15 11/16/23 History buspirone 10 mg tablet 10 mg PO TID Anxiety 04/17/18 11/16/23 History duloxetine 60 mg capsule,delayed 60 mg PO DAILY depression 04/17/18 11/16/23 History release (Cymbalta) 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 meter,continuous #1 ea 07/26/20 Unknown Rx (Dexcom G6 Plant Technical Specialist) pen needle, diabetic 31 gauge x #1,200 ea 12/22/20 Unknown History 08/14 pen needle, diabetic 32 gauge x #150 ea 06/01/21 Unknown Rx (BD Ultra-Fine Kiki Pen Needle) atorvastatin 80 mg tablet (Lipitor) 80 mg PO QHS cholesterol 09/04/21 11/15/23 History 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 transmitter (Dexcom #1 ea 12/29/21 Unknown Rx G6 Transmitter device) infusion set for insulin pump 10/08/22 Unknown History insulin pump controller 10/08/22 Unknown History metoprolol succinate 100 mg 100 mg PO DAILY heart #90 tabs 01/15/23 11/16/23 Rx tablet,extended release 24 hr hydrocodone-acetaminophen 5-325mg 1 tab PO BID PRN pain 02/14/23 11/16/23 History 5mg-325mg 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 sensor (Dexcom G6 #1 ea 02/25/23 Unknown Rx Sensor device) furosemide 40 mg tablet (Lasix) 40 mg PO BID diuretic #180 tabs 04/25/23 11/16/23 Rx apixaban 5 mg tablet (Eliquis) 5 mg PO BID blood thinner #180 tabs 07/21/23 11/16/23 Rx insulin regular hum U-500 conc 500 75 unit (0.15 mL) continuous 11/11/23 11/16/23 Rx unit/mL subcutaneous soln (Humulin subcutaneous infusion DAILY blood R U-500 (Concentrated) Insulin) sugar #20 mL lisinopril 20 mg tablet 40 mg PO DAILY blood pressure 11/13/23 11/16/23 History aspirin 325 mg tablet 325 mg PO DAILY heart health 11/27/23 03/02/24 History empagliflozin 25 mg tablet 25 mg PO DAILY diabetes #30 tabs 11/27/23 Unknown Rx (Jardiance) clopidogrel 75 mg tablet (Plavix) 75 mg PO DAILY anti platelet 21 12/06/23 Unknown Rx days #30 tabs albuterol sulfate 90 mcg/actuation 2 puff inhalation Q4H PRN 02/06/24 Unknown Rx aerosol inhaler (Ventolin HFA) shortness of breath or wheezing #18 grams pantoprazole 40 mg tablet,delayed 40 mg PO BID acid reflux 30 days 02/17/24 Unknown Rx release (Protonix) #60 tabs fenofibrate 54 mg tablet 54 mg PO DAILY cholesterol #30 tabs 02/23/24 Unknown Rx ferrous sulfate 325 mg (65 mg 325 mg PO DAILY anemia 03/02/24 Unknown History iron) tablet (Feosol) Allergy/AdvReac Type Severity Reaction Status Date / Time metoclopramide HCl (From Allergy Severe Anaphylaxis Verified 03/02/24 11:15 Reglan) Family History Brother Heart disease Mother CVA (cerebral vascular accident) Hypertension Rheumatoid arthritis Father Diabetes Other Alcohol abuse ulcer disease Surgical History History of cardiac catheterization History of lymph node excision History of left heart catheterization (2009) Hx of nephrolithotomy with removal of calculi History of thoracentesis (2015) Social History (Updated 03/02/24 @ 16:31 by Deysi Kelly) household members: spouse and none Smoking Status: Never smoker Electronic Cigarette Use: not used second hand exposure: No alcohol intake: never substance use type: does not use what type of physical activity do you participate in: none ROS ROS Narrative 10 systems were reviewed with pertinent positives as noted in the HPI above. Physical Exam Const alert and no apparent distress General Appearance: cooperative HEENT normocephalic, head/scalp atraumatic and moist oral mucous membranes Eyes PERRL, EOMs intact bilaterally and conjunctivae normal Neck supple General: trachea midline Chest inspection of chest normal Resp normal respiratory effort Auscultation: rales bilateral lower Cardio regular rate and regular rhythm GI normal to inspection, nondistended, normoactive bowel sounds Extremity no clubbing, cyanosis or edema Skin no rashes or lesions noted Neuro CN's II-XII intact bilaterally, moves all extremities and no focal motor deficits Psych cooperative and affect normal Lab / Micro Data 03/03/24 06:25 03/02/24 12:00 Labs: Laboratory Results - last 24 hr 03/03/24 06:25: WBC 8.5, RBC 4.11 L, Hgb 9.0 L, Hct 31.2 L, MCV 75.9 L, MCH 21.9 L, MCHC 28.8 L, RDW Std Deviation 47.8 H, RDW Coeff of Gavi 17.6 H, Plt Count 227, MPV 9.8, Immature Gran % (Auto) 0.400, Neut % (Auto) 69.6, Lymph % (Auto) 17.2 L, [place] % (Auto) 9.3, Eos % (Auto) 2.9, Baso % (Auto) 0.6, Absolute Neuts (auto) 5.9, Absolute Lymphs (auto) 1.46, Nucleated RBC % 0, TSH 1.390 Micro: Microbiology 03/02/24 11:40 Mucosa - Nose SARS-CoV-2, Influenza & RSV (PCR) - Final Imaging Radiology Impression Echocardiogram 03/02/24 16:20 Interpretation Summary The estimated ejection fraction is 60 %. Trivial mitral valve insufficiency. Mild aortic stenosis. Unable to assess diastolic dysfunction. Ordering Physician: Xiao Berrios Referring Physician: Radha Khan M.D. Performed By: Trinidad Johnson RDCS Charges/Coding Visit Charges Inpatient E&M: 50916 Init Hosp L3
--- NOTE | 2024-03-03 13:56 | CT_ITS ---
INDICATION: Difficulty breathing EXAMINATION: CT CHEST WITHOUT CONTRAST - CT Chest W/O Contrast Injection TECHNIQUE: Helically acquired images were obtained of the chest. A radiation dose optimization technique was used for this scan. IV Contrast dosage and agent: None. COMPARISON: 01/21/2024 FINDINGS: LUNGS, PLEURA AND LARGE AIRWAYS: Lung windows again show diffuse interstitial fibrotic scarring throughout both lung goldberg with honeycombing) the periphery of both lung goldberg, evidence of chronic bronchitis. No evidence of bronchiectatic changes or subpleural nodules, there are groundglass opacifications in the lower lung goldberg consistent with active alveolitis. Findings consistent with UIP. No organized infiltrate or effusion. THYROID: Stable thyroid nodule HEART AND PERICARDIUM: Heart size is normal. No pericardial effusion. CORONARY ARTERIES: Coronary artery calcification is seen. VESSELS: Thoracic aorta is not dilated. MEDIASTINUM AND NIDA: No suspicious bulky axillary, mediastinal or hilar adenopathy. Esophagus is unremarkable. No hiatal hernia. UPPER ABDOMEN: No acute pathology. BONES: No suspicious lytic or blastic abnormality. Bony structures show degenerative change CT/Chest without Contrast IMPRESSION: Diffuse interstitial fibrotic scarring in both lung goldberg with honeycombing in the periphery of both lung goldberg, no bronchiectatic changes or subpleural nodules, there is persistent though decreased ground glass opacifications in both lung goldberg. Findings consistent with interstitial lung disease, likely UIP No organized infiltrate or effusion No suspicious noncalcified mass or nodule Degenerative bony changes Electronically Signed: Issa Goncalves MD at 14:57 EST ,
--- NOTE | 2024-03-03 16:15 | CHAPLAIN ---
Type of Pastoral Visit _x__ Initial Visit ___ Follow-up Visit ___ On-call Visit ___ General Patient Visit ___ Spiritual Assessment ___ Family Conference ___ Bereavement ___ Rapid Response ___ Code Blue ___ Other (describe below) Pastoral Care Referral From _x__ Patient ___ Family ___ Nurse ___ Physician ___ Rate Examiner ___ Bulb Assembler ___ Other (describe below) Sacrament/Intervention _x__ Active listening ___ Anointing ___ Baptist ___ Bereavement ___ Communion _x__ Mary exploration ___ _x__ Life review _x__ Prayer ___ Reconciliation ___ Sacrament of Sick _x__ Supportive presence ___ Wedding ___ Other (describe below) Pastoral Comments patient is welcoming of the visit for spiritual care; pt speaks of his tests and now waiting for results; pt is hopeful but anxious to know what the tests will reveal; pt speaks of having five strokes since September and that he has just recently retired from a job of 39 years; explored how pt is handling the health status and the new season of senior care; pt also has become disconnected to his yarsani but holds his mary to be of great importance and the most influential part of his ability to handle his life circumstances; pt welcomes time to talk and to receive prayer
--- NOTE | 2024-03-03 18:16 | PCM.PN.HOSP ---
Reason for Visit Reason for Visit: Diagnoses Shortness of breath (03/02/24) Hypoxemia (03/02/24) Subjective Subjective Patient was seen and examined today, earlier today he was on nasal cannula oxygen, now he is on room air, I had pulmonary medicine see the patient today and they ordered a resolution CT that showed diffuse interstitial fibrotic scarring in both lung goldberg-findings consistent with interstitial lung disease. Objective Data Objective Data Vital Signs: Vital Signs Temp Pulse Resp BP Pulse Ox O2 Del Method O2 Flow Rate 97.9 F 79 18 133/77 H 98 Room Air 2 03/03/24 15:49 03/03/24 15:49 03/03/24 15:49 03/03/24 15:49 03/03/24 15:49 03/03/24 15:49 03/03/24 08:20 FiO2 28 03/03/24 01:14 Oxygen Flow Rate (L/min) 2 Oxygen Delivery Method Room Air Weight: 141 kg Body Mass Index (BMI) 45.8 Intake & Output: Intake and Output for Last 24 Hours 03/01/24 03/02/24 03/03/24 23:59 23:59 23:59 Intake Total 120 / 720 1600 / 1600 Balance 120 / 720 1600 / 1600 Lab / Micro Data 03/03/24 06:25 03/02/24 12:00 Labs: Laboratory Results - last 24 hr 03/03/24 06:25: WBC 8.5, RBC 4.11 L, Hgb 9.0 L, Hct 31.2 L, MCV 75.9 L, MCH 21.9 L, MCHC 28.8 L, RDW Std Deviation 47.8 H, RDW Coeff of Gavi 17.6 H, Plt Count 227, MPV 9.8, Immature Gran % (Auto) 0.400, Neut % (Auto) 69.6, Lymph % (Auto) 17.2 L, [place] % (Auto) 9.3, Eos % (Auto) 2.9, Baso % (Auto) 0.6, Absolute Neuts (auto) 5.9, Absolute Lymphs (auto) 1.46, Nucleated RBC % 0, TSH 1.390 Micro: Microbiology 03/02/24 16:46 Mucosa - Nasopharyngeal Respiratory Panel (PCR) - Final 03/02/24 11:40 Mucosa - Nose SARS-CoV-2, Influenza & RSV (PCR) - Final Radiography Diagnostic Testing: Radiology Impression Echocardiogram 03/02/24 16:20 Interpretation Summary The estimated ejection fraction is 60 %. Trivial mitral valve insufficiency. Mild aortic stenosis. Unable to assess diastolic dysfunction. Ordering Physician: Xiao Berrios Referring Physician: Radha Khan M.D. Performed By: Trinidad Johnson RDCS Chest CT 03/03/24 13:56 IMPRESSION: Diffuse interstitial fibrotic scarring in both lung goldberg with honeycombing in the periphery of both lung goldberg, no bronchiectatic changes or subpleural nodules, there is persistent though decreased ground glass opacifications in both lung goldberg. Findings consistent with interstitial lung disease, likely UIP No organized infiltrate or effusion No suspicious noncalcified mass or nodule Degenerative bony changes Electronically Signed: Issa Goncalves MD at 14:57 EST Reading Location ID and State: [facility] / [place] , Service support , Physical Exam Const alert, oriented x3 and no apparent distress General Appearance: cooperative, well kempt and well developed Orientation / Consciousness: awake, oriented to person, oriented to place and oriented to time HEENT normocephalic, head/scalp atraumatic and moist oral mucous membranes Eyes PERRL, EOMs intact bilaterally and conjunctivae normal Neck supple, no JVD, thyroid normal and no carotid bruits General: trachea midline Resp normal respiratory effort, no retractions and no use of accessory muscles Resp Narrative: Inspiratory rales are noted at the lung bases bilaterally Auscultation: rales; Negative for rhonchi or wheezes Cardio regular rate, regular rhythm, S1 normal heart sound, S2 normal heart sound, no murmurs, no rub and no gallops GI normal to inspection, nondistended, normoactive bowel sounds, soft to palpation, non-tender and non-distended Extremity no clubbing, cyanosis or edema Skin no rashes or lesions noted General Skin Exam: no breakdown Neuro oriented x3, CN's II-XII intact bilaterally, no focal motor deficits and no sensory deficits noted Sensorium / Orientation: awake and alert Speech: speech normal Psych affect normal Assessment & Plan Assessment/Plan (1) Exertional shortness of breath: PLAN: Plan 1. Hypoxia-etiology unclear at this point, patient is currently on room air. Patient appears to have interstitial lung disease as indicated by his chest CT, pulmonary medicine is participating in his care #2 paroxysmal atrial fibrillation-patient is currently on anticoagulation and rate limiting medication #3 type 2 diabetes-patient's blood sugars will be monitored, sliding scale insulin will be administered as needed #4 essential hypertension-patient will remain on his home medication #5 cerebrovascular disease-patient is currently on aspirin, Plavix, and due to his paroxysmal A-fib, Eliquis. #6 interstitial lung disease-patient will be following up with pulmonary medicine Total clinical time spent by myself addressing the patient's medical issues, reviewing all of his data, and collaborating with patient's care team: 35 minutes Charges/Coding Visit Charges Inpatient E&M: 05363 Subs Hosp L2
[2024-03-03] MEDS: Atorvastatin Calcium 80 MG Tablet PO (21:07)
--- NOTE | 2024-03-03 22:44 | CPS ---
pt refused cpap this evening.
[2024-03-03] MEDS: hydrALAZINE 20 MG/ML Vial 10 MG IV (22:56)
[2024-03-04 03:00] VITALS: BP 104/45; PULSE 87; RESP 18; TEMP 36.4; O2SAT 94
[2024-03-04 09:00] VITALS: BP 129/97; PULSE 76; RESP 18; TEMP 36.6; O2SAT 95
[2024-03-04] MEDS: Fenofibrate 48 MG Tablet PO (10:33)
[2024-03-04] MEDS: DULoxetine Hcl 60 MG Capsule PO (10:33)
[2024-03-04] MEDS: Pantoprazole Sodium 40 MG Tablet PO (10:34)
[2024-03-04] MEDS: Clopidogrel Bisulfate 75 MG Tablet PO (10:34)
[2024-03-04] MEDS: Lisinopril 40 MG Tablet PO (10:34)
[2024-03-04] MEDS: Tamsulosin HCl 0.4 MG Capsule PO (10:34)
[2024-03-04] MEDS: Aspirin 325 MG Tablet PO (10:34)
[2024-03-04] MEDS: APIXABAN 5 MG TABLET PO (10:34)
[2024-03-04 10:35] VITALS: PULSE 78
[2024-03-04] MEDS: Metoprolol(XL)Succ 100 MG Tablet PO (10:35)
[2024-03-04] MEDS: Furosemide 40 MG Tablet PO (10:35)
[2024-03-04 10:54] VITALS: O2SAT 90; O2SAT 94
[2024-03-04 10:55] VITALS: O2SAT 90
[2024-03-04] MEDS: Insulin Basal Pump SC (12:32)
--- NOTE | 2024-03-04 13:28 | PCM.PN.INT ---
Assessment & Plan Assessment/Plan (1) Exertional shortness of breath: PLAN: Plan RECOMMENDATIONS: 1. Supplemental oxygen, if needed, to maintain saturations at or above 90%. 2. Laboratory workup for autoimmune panel has been sent. 3. Perform walking oximetry study prior to consideration for discharge home. 4. Continue PAP therapy per home regimen. 5. The patient should follow-up in the pulmonary medicine clinic within 2 weeks of his discharge from the hospital. IMPRESSIONS: 1. Exertional shortness of breath and hypoxemia Appears to be secondary to evolving interstitial lung disease. Low index of suspicion for decompensated heart failure. In light of the radiographic findings noted on CT imaging, we will send off autoimmune panel. The results of the autoimmune workup will be reviewed with the patient at his follow-up office visit. I would recommend that the patient be seen in the pulmonary medicine clinic within 2 weeks of discharge. Perform walking oximetry study prior to consideration for discharge home. 2. History of obstructive sleep apnea/heart failure with preserved ejection fraction/hypothyroidism/GERD/anemia/obesity Complicates care, management, recovery and prognosis. Continue home medications as indicated. Recommend continuing nocturnal PAP therapy per home regimen. This note was generated with [employer] dictation software. It may contain incorrect words, spelling, and punctuation that were not noted in checking the note before signing. Subjective Subjective The patient was seen and examined at the bedside this morning. Events from the last 24 hours have been reviewed. The patient is currently afebrile, hemodynamically stable and maintaining appropriate oxygen saturations on room air at rest. CT imaging completed yesterday demonstrated findings concerning for evolving interstitial lung disease. Objective Data Objective Data The patient's most recent lab work, culture data and imaging studies have all been personally reviewed. Vital Signs: Vital Signs Temp Pulse Resp BP Pulse Ox O2 Del Method O2 Flow Rate 97.9 F 78 18 129/97 H 90 Room Air 2 03/04/24 09:00 03/04/24 10:35 03/04/24 09:00 03/04/24 09:00 03/04/24 10:55 03/04/24 09:00 03/04/24 08:09 FiO2 28 03/03/24 01:14 Oxygen Flow Rate (L/min) 2 Oxygen Delivery Method Room Air Weight: 311 lb Body Mass Index (BMI) 45.9 Intake & Output: Intake and Output for Last 24 Hours 03/02/24 03/03/24 03/04/24 23:59 23:59 23:59 Intake Total 120 / 720 2099 / 2100 Balance 120 / 720 2099 / 2100 Lab / Micro Data Attestation: I reviewed the patient's lab results. 03/03/24 06:25 03/02/24 12:00 Micro: Microbiology 03/02/24 16:46 Mucosa - Nasopharyngeal Respiratory Panel (PCR) - Final 03/02/24 11:40 Mucosa - Nose SARS-CoV-2, Influenza & RSV (PCR) - Final Radiography Diagnostic Testing: Radiology Impression Chest CT 03/03/24 13:56 IMPRESSION: Diffuse interstitial fibrotic scarring in both lung goldberg with honeycombing in the periphery of both lung goldberg, no bronchiectatic changes or subpleural nodules, there is persistent though decreased ground glass opacifications in both lung goldberg. Findings consistent with interstitial lung disease, likely UIP No organized infiltrate or effusion No suspicious noncalcified mass or nodule Degenerative bony changes Electronically Signed: Issa Goncalves MD at 14:57 EST , Physical Exam Const alert and no apparent distress Constitutional Narrative: Sitting in bedside recliner. General Appearance: cooperative HEENT normocephalic, head/scalp atraumatic and moist oral mucous membranes Eyes PERRL, EOMs intact bilaterally and conjunctivae normal Neck supple General: trachea midline Chest inspection of chest normal Resp normal respiratory effort Auscultation: rales bilateral lower Cardio regular rate and regular rhythm GI normal to inspection, nondistended, normoactive bowel sounds Extremity no clubbing, cyanosis or edema Skin no rashes or lesions noted Neuro CN's II-XII intact bilaterally, moves all extremities and no focal motor deficits Psych cooperative and affect normal Charges/Coding Visit Charges Inpatient E&M: 87717 Subs Hosp L2
--- NOTE | 2024-03-04 14:24 | DCINST_ITS ---
Discharge Instructions Diet Discharge Diet: 1800 Calorie Control Diet DC O2, CPAP, BIPAP needs RN Home O2 Qualification: Home O2 Qualification: Is the patient on home oxygen No 03/04/24 10:54 Home O2 Qualification: AT REST 1- Pulse Ox at rest 94 03/04/24 10:54 Home O2 Qualification: WITH AMBULATION 1- Pulse Ox with ambulation 90 03/04/24 10:54 1- Oxygen Flow Rate with 0 03/04/24 10:54 ambulation 2- Pulse Ox with ambulation 92 03/03/24 13:24 2- Oxygen Flow Rate with 2 03/03/24 13:24 ambulation PSN CPAP & BiPAP: BiPAP & CPAP Settings per PSN Mode CPAP 03/03/24 22:44 Bipap Delivery Device Face Mask 03/03/24 22:44 BiPAP Expiratory Pressure 10 03/03/24 01:14 Fraction of Inspired Oxygen ( 28 03/03/24 01:14 FIO2) Additional Home O2 Discharge instructions: No Dressing / Incision Discharge Activity: Return to Normal Activity Weight Bearing Status: Full weight bearing Follow Up Care Test Results: Test results from this visit will be discussed in further detail at your follow- up appointment, if applicable. Discharge Plan Admission Admit Date/Time: 03/02/24 15:26 Primary Reason for Your Visit: hypoxia, interstitial lung disease Attending Provider: Cas Pate Primary Care Provider: Radha Khan Consulting Providers: Xiao Berrios; Rafael Marc; Andrea Murphy; Jonathon Salas; Fran Rodriguez; Eduin Swain; Aidan Cornell; Brandon Cain; Catalina Dolan; John Jones; Conor Palafox; Shameka Garcia; Shobha Larios; Meme,Brennan; Gavi,Mane; Sim,Nikolai; Parish Viveros; Cecile Queen; Thang Garcia; Eric Bosch; David Leonard Discharge Orders/Prescriptions Prescriptions: Continued (DME) Dexcom G6 Sports Coordinator Misc See Rx Instructions .ROUTE .MEDSUPPLY Qty: 1 0RF Rx Instructions: As directed (DME) pen needle, diabetic 31 gauge x 5/16 needle See Rx Instructions .ROUTE .MEDSUPPLY Qty: 1200 Patient Comments: use 1 PEN NEEDLE to inject MEDICATION subcutaneously as directed Rx Instructions: As directed (DME) pen needle, diabetic [BD Ultra-Fine Kiki Pen Needle] 32 gauge x 5/32 needle See Rx Instructions .ROUTE .MEDSUPPLY Qty: 150 6RF Rx Instructions: As directed (DME) infusion set for insulin pump Infusion Set See Rx Instructions .Route Rx Instructions: As directed (DME) insulin pump controller Misc See Rx Instructions .Route Rx Instructions: As directed aspirin 325 mg tablet 325 mg PO DAILY Patient Comments: coated Jardiance 25 mg tablet 25 mg PO DAILY Qty: 30 5RF clopidogrel [Plavix] 75 mg tablet 75 mg PO DAILY 21 Days Qty: 30 11RF Patient Comments: PT WAS SUPPOSED TO START TODAY, 11/16/23, HASNT STARTED YET fenofibrate 54 mg tablet 54 mg PO DAILY Qty: 30 6RF levothyroxine 125 MCG tablet 112 mcg PO DAILY tamsulosin 0.4 MG capsule 0.4 mg PO DAILY buspirone 10 MG tablet 10 mg PO TID Rx Instructions: pt states he usually takes 1 daily duloxetine [Cymbalta] 60 MG capsule,delayed release(DR/EC) 60 mg PO DAILY atorvastatin [Lipitor] 80 MG tablet 80 mg PO QHS Rx Instructions: cholesterol hydrocodone-acetaminophen 5-325 mg tablet 1 tab PO BID PRN (Reason: pain) lisinopril 20 mg tablet 40 mg PO DAILY ferrous sulfate [Feosol] 325 mg (65 mg iron) tablet 325 mg PO DAILY (DME) Dexcom G6 Transmitter Device See Rx Instructions .ROUTE .MEDSUPPLY Qty: 1 3RF Rx Instructions: As directed metoprolol succinate 100 mg tablet extended release 24 hr 100 mg PO DAILY Qty: 90 3RF (DME) Dexcom G6 Sensor Device See Rx Instructions .ROUTE .MEDSUPPLY Qty: 1 6RF Rx Instructions: As directed furosemide [Lasix] 40 mg tablet 40 mg PO BID Qty: 180 3RF Eliquis 5 mg tablet 5 mg PO BID Qty: 180 3RF Humulin R U-500 (Conc) Insulin 500 unit/mL solution 75 unit continuous subcutaneous infusion DAILY Qty: 20 5RF Patient Comments: INSULIN PUMP albuterol sulfate [Ventolin HFA] 90 mcg/actuation HFA aerosol inhaler 2 puff inhalation Q4H PRN (Reason: shortness of breath or wheezing) Qty: 18 6RF pantoprazole [Protonix] 40 mg tablet,delayed release (DR/EC) 40 mg PO BID 30 Days Qty: 60 0RF Referrals / Follow Up: Radha Khan MD [Primary Care Provider] - Fran Rodriguez DO [Med Staff - Active Staff] - See Referral Note (In 2 weeks, call for an appointment) Disposition Disposition (needs filled in before D/C Order can be placed): Home, Self Care
--- NOTE | 2024-03-04 14:30 | DS.PCM_ITS ---
Providers Date of Admission: 03/02/24 Date of Discharge: 03/04/24 Primary Care Physician: Dr. Radha Khan MD Consultations 03/03/24 08:01 Consult: Frozen Pie Maker / Pulmonary Medicine Routine Consulting Provider: Intensivists/Pulmonary Med Reason for Consult: hypoxia, ? CHF versus COPD EMERGENT Consult: No MD Notified: Yes Date Notified: 03/03/24 Time Notified: 08:07 Method of Notification: Text Reason For Visit: ACUTE HYPOXIC RESPIRATORY FAILURE Diagnosis Discharge Diagnosis (1) Exertional shortness of breath: Status: Inactive Code(s): R06.02 - Shortness of breath Plan 1. Hypoxia-secondary to interstitial lung disease #2 paroxysmal atrial fibrillation-patient is currently on anticoagulation and rate limiting medication #3 type 2 diabetes-patient's blood sugars will be monitored, sliding scale insulin will be administered as needed #4 essential hypertension-patient will remain on his home medication #5 cerebrovascular disease-patient is currently on aspirin, Plavix, and due to his paroxysmal A-fib, Eliquis. #6 interstitial lung disease-patient will be following up with pulmonary medicine Total clinical time spent by myself addressing the patient's medical issues, reviewing all of his data, and collaborating with patient's care team: 35 minutes Medications at Discharge Home Medications levothyroxine 125 mcg tablet 112 mcg PO DAILY thyroid 05/03/15 tamsulosin 0.4 mg capsule 0.4 mg PO DAILY prostate 09/08/15 buspirone 10 mg tablet 10 mg PO TID Anxiety 04/17/18 duloxetine 60 mg capsule,delayed release (Cymbalta) 60 mg PO DAILY depression 04/17/18 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 meter,continuous (Dexcom G6 Weatherization Crew Leader) #1 ea 07/26/20 pen needle, diabetic 31 gauge x 5/16 #1,200 ea 12/22/20 pen needle, diabetic 32 gauge x 5/32 (BD Ultra-Fine Kiki Pen Needle) #150 ea 06/01/21 atorvastatin 80 mg tablet (Lipitor) 80 mg PO QHS cholesterol 09/04/21 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 transmitter (Dexcom G6 Transmitter device) #1 ea 12/29/21 infusion set for insulin pump 10/08/22 insulin pump controller 10/08/22 metoprolol succinate 100 mg tablet,extended release 24 hr 100 mg PO DAILY heart #90 tabs 01/15/23 hydrocodone-acetaminophen 5-325mg 5mg-325mg 1 tab PO BID PRN pain 02/14/23 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 sensor (Dexcom G6 Sensor device) #1 ea 02/25/23 furosemide 40 mg tablet (Lasix) 40 mg PO BID diuretic #180 tabs 04/25/23 apixaban 5 mg tablet (Eliquis) 5 mg PO BID blood thinner #180 tabs 07/21/23 insulin regular hum U-500 conc 500 unit/mL subcutaneous soln (Humulin R U-500 (Concentrated) Insulin) 75 unit (0.15 mL) continuous subcutaneous infusion DAILY blood sugar #20 mL 11/11/23 lisinopril 20 mg tablet 40 mg PO DAILY blood pressure 11/13/23 aspirin 325 mg tablet 325 mg PO DAILY heart health 11/27/23 empagliflozin 25 mg tablet (Jardiance) 25 mg PO DAILY diabetes #30 tabs 11/27/23 clopidogrel 75 mg tablet (Plavix) 75 mg PO DAILY anti platelet 21 days #30 tabs 12/06/23 albuterol sulfate 90 mcg/actuation aerosol inhaler (Ventolin HFA) 2 puff inhalation Q4H PRN shortness of breath or wheezing #18 grams 02/06/24 pantoprazole 40 mg tablet,delayed release (Protonix) 40 mg PO BID acid reflux 30 days #60 tabs 02/17/24 fenofibrate 54 mg tablet 54 mg PO DAILY cholesterol #30 tabs 02/23/24 ferrous sulfate 325 mg (65 mg iron) tablet (Feosol) 325 mg PO DAILY anemia 03/02/24 Hospital Course Operations None Procedures None Summary of Care Provided Minutes Spent on Discharge: 31 Hospital Course: This 58-year-old white male was seen in the emergency room at [facility] with complaints of shortness of breath. Patient had recently been in the emergency room approximately a week before and diagnosed with pneumonia and atrial fibrillation, he was placed on anticoagulation at that point and was discharged home. Patient states that since that time he has shortness of breath chiefly with activity, he states he has been using his 's oxygen due to a drop in his oxygen level when he ambulates. Labs obtained showed normal white blood cell count, hemoglobin was low at 9.3, chemistry profile was remarkable for glucose of 220. Chest x-ray showed chronic interstitial changes. Patient initially required 5 L of oxygen to maintain his pulse ox when he first came to the emergency room, this was titrated down to 2 L when he was admitted. Patient was admitted to PCU, echocardiogram was obtained which showed a normal EF there was mild aortic stenosis. Patient was seen in consultation by critical care who ordered a high-resolution CT which showed the presence of interstitial lung disease. Patient's oxygen however was able to be weaned off and he did not require oxygen at the time of discharge home. On 03/04/2024, patient was seen and examined: On examination he appeared in good health and spirits. Vital signs as documented. Skin warm and dry and without overt rashes. Neck without JVD, neck was supple, trachea midline, thyroid was normal. Lungs patient had inspiratory rales at the bases bilaterally, normal air movement was noted. Heart exam notable for regular rhythm, normal sounds and absence of murmurs, rubs or gallops. Abdomen unremarkable and without evidence of organomegaly, masses, or abdominal aortic enlargement. Bowel sounds are present, abdomen is not distended. Extremities nonedematous, no cyanosis was noted, no clubbing was noted. Neuro: Cranial nerves II through XII are grossly intact, no focal motor deficits were noted, sensation to light touch and pinprick intact, motor exam 5/5 throughout. Psych: Patient is alert and oriented x3, he does not appear anxious or depressed, he does not appear agitated. On 03/04/2024 patient was discharged home in stable condition he was instructed to follow-up with pulmonary medicine as an outpatient. Weight / BMI Weight Weight: 141.067 kg Body Mass Index (BMI) 45.9 ABG / Lab / Microbiology Data 03/03/24 06:25 03/02/24 12:00 Laboratory: Laboratory Results - last 24 hr 03/04/24 06:25: DOUG-1 Antibody Not Reportable, SS-A/Ro IgG Antibody Not Reportable, SS-B/La IgG Antibody Not Reportable, Sm (Silveira) Antibody Not Reportable, INDUSTRIAL TRAINING SPECIALIST Antibody Not Reportable, Scl-70 Scleroderma Ab Not Reportable, Double Strand DNA Ab Not Reportable, Centromere B Antibody Not Reportable Microbiology: Microbiology 03/02/24 16:46 Mucosa - Nasopharyngeal Respiratory Panel (PCR) - Final 03/02/24 11:40 Mucosa - Nose SARS-CoV-2, Influenza & RSV (PCR) - Final Radiography Diagnostic Testing: Radiology Impression Chest CT 03/03/24 13:56 IMPRESSION: Diffuse interstitial fibrotic scarring in both lung goldberg with honeycombing in the periphery of both lung goldberg, no bronchiectatic changes or subpleural nodules, there is persistent though decreased ground glass opacifications in both lung goldberg. Findings consistent with interstitial lung disease, likely UIP No organized infiltrate or effusion No suspicious noncalcified mass or nodule Degenerative bony changes Electronically Signed: Issa Goncalves MD at 14:57 EST Reading Location ID and State: [facility] , Service support , D/C Instructions Discharge Diet: 1800 Calorie Control Diet Weight Bearing Status: Full weight bearing DC O2, CPAP, BIPAP Needs RN Home O2 Qualification: Home O2 Qualification: Is the patient on home oxygen No 03/04/24 10:54 Home O2 Qualification: AT REST 1- Pulse Ox at rest 94 03/04/24 10:54 Home O2 Qualification: WITH AMBULATION 1- Pulse Ox with ambulation 90 03/04/24 10:54 1- Oxygen Flow Rate with 0 03/04/24 10:54 ambulation 2- Pulse Ox with ambulation 92 03/03/24 13:24 2- Oxygen Flow Rate with 2 03/03/24 13:24 ambulation PSN CPAP & BiPAP: BiPAP & CPAP Settings per PSN Mode CPAP 03/03/24 22:44 Bipap Delivery Device Face Mask 03/03/24 22:44 BiPAP Expiratory Pressure 10 03/03/24 01:14 Fraction of Inspired Oxygen ( 28 03/03/24 01:14 FIO2) Additional Home O2 Discharge instructions: No DC home with Oxygen: No Meaningful Use Info Meaningful Use Meaningful Use Diagnoses (Choose all that apply): None applicable Ischemic Stroke Statin Dosing Therapy Reference: STATIN DOSE THERAPY REFERENCE: * Patients > 75 years receive moderate or high dose statin therapy. * Patients 75 years or YOUNGER should receive HIGH intensity statin dose unless contraindicated. You will be required to document reason for non-treatment if statin daily dose does not meet guidelines. HIGH DOSE STATIN THERAPY DAILY Atorvastatin > than or = to 40 mg Rosuvastatin > than or = to 20 mg Amlodipine + Atorvastatin > than or = to 2.5/40 mg Ezetimibe + Simvastatin 10/80 mg Simvastatin 80mg Discharge Plan Admission Admit Date/Time: 03/02/24 15:26 Primary Reason for Your Visit: hypoxia, interstitial lung disease Attending Provider: Cas Pate Primary Care Provider: Radha Khan Consulting Providers: Xiao Berrios; Rafael Marc; Andrea Murphy; Jonathon Salas; Fran Rodriugez; Eduin Swain; Aidan Cornell; Brandon Cain; Catalina Dolan; John Jones; Conor Palafox; Shameka Garcia; Shobha Larios; Meme,Brennan; Mane Gatica; Nikolai Montemayor; Parish Viveros; Cecile Queen; Thang Garcia; Eric Bosch; David Leonard Discharge Orders/Prescriptions Prescriptions: Continued (DME) Dexcom G6 Weatherization Crew Leader Misc See Rx Instructions .ROUTE .MEDSUPPLY Qty: 1 0RF Rx Instructions: As directed (DME) pen needle, diabetic 31 gauge x 5/16 needle See Rx Instructions .ROUTE .MEDSUPPLY Qty: 1200 Patient Comments: use 1 PEN NEEDLE to inject MEDICATION subcutaneously as directed Rx Instructions: As directed (DME) pen needle, diabetic [BD Ultra-Fine Kiki Pen Needle] 32 gauge x 5/32 needle See Rx Instructions .ROUTE .MEDSUPPLY Qty: 150 6RF Rx Instructions: As directed (DME) infusion set for insulin pump Infusion Set See Rx Instructions .Route Rx Instructions: As directed (DME) insulin pump controller Misc See Rx Instructions .Route Rx Instructions: As directed aspirin 325 mg tablet 325 mg PO DAILY Patient Comments: coated Jardiance 25 mg tablet 25 mg PO DAILY Qty: 30 5RF clopidogrel [Plavix] 75 mg tablet 75 mg PO DAILY 21 Days Qty: 30 11RF Patient Comments: PT WAS SUPPOSED TO START TODAY, 11/16/23, HASNT STARTED YET fenofibrate 54 mg tablet 54 mg PO DAILY Qty: 30 6RF levothyroxine 125 MCG tablet 112 mcg PO DAILY tamsulosin 0.4 MG capsule 0.4 mg PO DAILY buspirone 10 MG tablet 10 mg PO TID Rx Instructions: pt states he usually takes 1 daily duloxetine [Cymbalta] 60 MG capsule,delayed release(DR/EC) 60 mg PO DAILY atorvastatin [Lipitor] 80 MG tablet 80 mg PO QHS Rx Instructions: cholesterol hydrocodone-acetaminophen 5-325 mg tablet 1 tab PO BID PRN (Reason: pain) lisinopril 20 mg tablet 40 mg PO DAILY ferrous sulfate [Feosol] 325 mg (65 mg iron) tablet 325 mg PO DAILY (DME) Dexcom G6 Transmitter Device See Rx Instructions .ROUTE .MEDSUPPLY Qty: 1 3RF Rx Instructions: As directed metoprolol succinate 100 mg tablet extended release 24 hr 100 mg PO DAILY Qty: 90 3RF (DME) Dexcom G6 Sensor Device See Rx Instructions .ROUTE .MEDSUPPLY Qty: 1 6RF Rx Instructions: As directed furosemide [Lasix] 40 mg tablet 40 mg PO BID Qty: 180 3RF Eliquis 5 mg tablet 5 mg PO BID Qty: 180 3RF Humulin R U-500 (Conc) Insulin 500 unit/mL solution 75 unit continuous subcutaneous infusion DAILY Qty: 20 5RF Patient Comments: INSULIN PUMP albuterol sulfate [Ventolin HFA] 90 mcg/actuation HFA aerosol inhaler 2 puff inhalation Q4H PRN (Reason: shortness of breath or wheezing) Qty: 18 6RF pantoprazole [Protonix] 40 mg tablet,delayed release (DR/EC) 40 mg PO BID 30 Days Qty: 60 0RF Referrals / Follow Up: Radha Khan MD [Primary Care Provider] - Fran Rodriguez DO [Med Staff - Active Staff] - See Referral Note (In 2 weeks, call for an appointment) Disposition Disposition (needs filled in before D/C Order can be placed): Home, Self Care Charges/Coding Visit Charges Inpatient E&M: 36646 Disch Hosp >30min
[2024-03-04] MEDS: busPIRone 5 MG Tablet 10 MG PO (14:43)
[2024-03-04 15:00] VITALS: BP 100/63; PULSE 76; RESP 18; TEMP 36.7; O2SAT 98
--- NOTE | 2024-03-04 15:20 | CASEMGMT ---
Patient has order for discharge. Patient does not qualify for home oxygen at discharge. RN CM in to discuss needs at discharge. Patient denies needs or help at discharge. Patient had no further quetions or concerns.
[2024-03-05 15:08] LABS: ANTINUCLEAR ANTIBODIES DIRECT Negative (Negative)
[2024-03-05 16:10] LABS: CCP IgG Antibodies 6 units (0-19); Cytoplasmic Ab (C-ANCA) <1:20 titer (Neg:<1:20); Perinuclear Ab (P-ANCA) <1:20 titer (Neg:<1:20)
== END 2024-03-04 15:43 | disposition home or self-care (01) | DRG 197 ==
LOC: ED 14:45 → PCU 03-03 07:18
PROVIDERS: Internal Medicine Critical Care Medicine; Admitting Provider Internal Medicine; Emergency Provider Emergency Medicine; PCP Family Medicine; Visit Provider Internal Medicine
DX: J84.9 Interstitial pulmonary disease, unspecified (principal); N13.8 Other obstructive and reflux uropathy; I50.32 Chronic diastolic (congestive) heart failure; Z68.42 Body mass index [BMI] 45.0-49.9, adult; E11.42 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 with diabetic polyneuropathy; D50.9 Iron deficiency anemia, unspecified; E03.9 Hypothyroidism, unspecified; E66.01 Morbid (severe) obesity due to excess calories; I11.0 Hypertensive heart disease with heart failure; F32.A Depression, unspecified; I35.0 Nonrheumatic aortic (valve) stenosis; I48.0 Paroxysmal atrial fibrillation; I25.10 Atherosclerotic heart disease of native coronary artery without angina pectoris; G47.33 Obstructive sleep apnea (adult) (pediatric); F41.9 Anxiety disorder, unspecified; K21.9 Gastro-esophageal reflux disease without esophagitis; E78.00 Pure hypercholesterolemia, unspecified; I25.2 Old myocardial infarction; Z79.4 Long term (current) use of insulin; R09.02 Hypoxemia; N40.1 Benign prostatic hyperplasia with lower urinary tract symptoms; Z79.01 Long term (current) use of anticoagulants; Z87.01 Personal history of pneumonia (recurrent); Z86.73 Personal history of transient ischemic attack (TIA), and cerebral infarction without residual deficits; Z96.41 Presence of insulin pump (external) (internal); Z79.890 Hormone replacement therapy; Z79.899 Other long term (current) drug therapy; Z79.82 Long term (current) use of aspirin; Z79.02 Long term (current) use of antithrombotics/antiplatelets; Z79.84 Long term (current) use of oral hypoglycemic drugs; Z91.198 Patient's noncompliance with other medical treatment and regimen for other reason
CPT/HCPCS: 36415; 71046; 71250; 80048; 83880; 84443; 84484; 85025; 86037; 86038; 86200; 86225; 86235; 86431; 87631; 87633; 93005; 93306; 94003; 94660; 94668; 99285; Q9957; A4216; C8929

== ENCOUNTER 2024-03-27 11:49 | Day surgery (SDC) | payer OTHER, SELFPAY ==
--- NOTE | 2024-03-20 08:13 | PAT.ANESEVAL ---
Pre-Assessment Diagnosis/Proposed Procedure Planned Operative Procedure(s): COLONOSCOPY, EGD Anesthesia History Anesthesia History - beverage host: Anesthesia History - beverage host Hx Hospitalization Yes: 03/24- [facility] 03/19/24 15:09 Any Problems With Anesthesia No 03/19/24 15:09 Cholinesterase deficiency No 03/19/24 15:09 You/Your Family Experience No 03/19/24 15:09 fever (hyperthermia) with Relationship Recent Exposure to Contagious No 11/14/23 16:41 Disease Does patient have nerve No 03/19/24 15:09 stimulator Patient instructed to have device shut off --Does patient have Pacemaker or ICD? When Was Last Pacemaker Check QUESTION #4 FULL TEXT: You/Your Family Experience fever (hyperthermia) with Anesthesia Last Oral Intake Last Oral intake: Last Oral Intake NPO since Meds taken in AM with sips of water? Meds patient instructed to take am of surgery PONV PONV - beverage host: PONV - beverage host Female No 03/19/24 15:09 HX of Motion Sickness Yes 03/19/24 15:09 HX of N/V After Surgery No 03/19/24 15:09 Non-Smoker Yes 03/19/24 15:09 Duration of Surgery greater No 03/19/24 15:09 than 60 minutes Number of Risk Factors 2 03/19/24 15:09 PONV Score Moderate Risk 03/19/24 15:09 Height & Weight Height & Weight: Anesthesia: Height & Weight Height 5 ft 9 in 02/03/24 14:27 Respiratory Assessment Respiratory Assessment - beverage host: Respiratory Tract Infection Hx - beverage host Hx Respiratory Tract Infection No 03/19/24 15:09 STOP Sleep Apnea STOP Sleep Apnea - beverage host: STOP Sleep Apnea - beverage host Hx Hypertension Yes 03/19/24 15:09 Hx Sleep Apnea Yes 03/19/24 15:09 CPAP No 03/19/24 15:09 BIPAP Yes 03/19/24 15:09 Do you snore loudly (louder than talking or can be heard Do you often feel tired/ fatigued/ sleepy during daytime? Has anyone observed you stop breathing during sleep? STOP Results Positive 03/19/24 15:09 QUESTION #5 FULL TEXT : Do you snore loudly (louder than talking or can be heard through closed doors)? 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 Specify any problems Hx of Preganancy in last 3 N/A 03/19/24 15:09 Months Nurse Filling Out Transfusion [email or web address] 03/19/24 15:09 & Questions: Date: 03/19/24 03/19/24 15:09 Time: 15:12 03/19/24 15:09 Patient unable to answer at this time (ie. 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 Morbid obesity with BMI of 45.0-49.9, adult Atherosclerotic heart disease of [place] coronary artery without angina pectoris Mini stroke (~10/01/23) Peripheral vestibulopathy Ischemic cerebrovascular accident (CVA) Cranial nerve disorder Polyneuropathy Wears glasses Depression Anxiety Cancer Thyroid disease Insulin dependent diabetes mellitus Arthritis History of renal disease Prostate disease Gastric reflux CPAP (continuous positive airway pressure) dependence Sleep apnea Shortness of breath on exertion History of echocardiogram History of stress test History of CHF (congestive heart failure) Cardiology follow-up encounter History of atrial fibrillation Neuropathy Multiple thyroid nodules Microalbuminuria CKD (chronic kidney disease) Thyroid nodule Double vision Presence of insulin pump Non-proliferative diabetic retinopathy KIANNA treated with BiPAP Vertigo Congestive heart failure (CHF) Low testosterone Carotid stenosis Chronic diastolic CHF (congestive heart failure) High cholesterol Vision loss of right eye Vision loss of left eye Anemia Non-smoker Atrial fibrillation Hypertension Paroxysmal atrial fibrillation Obesity Polyneuropathy due to type 2 diabetes mellitus Diabetes History of non-ST elevation myocardial infarction (NSTEMI) (03/28/20) TIA (transient ischemic attack) (2018) Hodgkin disease GERD (gastroesophageal reflux disease) BPH (benign prostatic hyperplasia) Hypothyroidism Essential (primary) hypertension Anxiety and depression Morbid obesity with BMI of 45.0-49.9, adult Nephrolithiasis Hyperlipidemia Diabetes mellitus, type II KIANNA (obstructive sleep apnea) Home Medications ?Medication ?Instructions ?Recorded ?Last Taken ?Type tamsulosin 0.4 mg capsule 0.4 mg PO DAILY prostate 09/08/15 11/16/23 History buspirone 10 mg tablet 10 mg PO TID Anxiety 04/17/18 11/16/23 History duloxetine 60 mg capsule,delayed 60 mg PO DAILY depression 04/17/18 11/16/23 History release (Cymbalta) 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 meter,continuous #1 ea 07/26/20 Unknown Rx (Dexcom G6 Compressor Service Technician) pen needle, diabetic 31 gauge x #1,200 ea 12/22/20 Unknown History 08/14 pen needle, diabetic 32 gauge x #150 ea 06/01/21 Unknown Rx (BD Ultra-Fine Kiki Pen Needle) atorvastatin 80 mg tablet (Lipitor) 80 mg PO QHS cholesterol 09/04/21 11/15/23 History 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 transmitter (Dexcom #1 ea 12/29/21 Unknown Rx G6 Transmitter device) infusion set for insulin pump 10/08/22 Unknown History insulin pump controller 10/08/22 Unknown History metoprolol succinate 100 mg 100 mg PO DAILY heart #90 tabs 01/15/23 11/16/23 Rx tablet,extended release 24 hr hydrocodone-acetaminophen 5-325mg 1 tab PO BID PRN pain 02/14/23 11/16/23 History 5mg-325mg 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 sensor (Dexcom G6 #1 ea 02/25/23 Unknown Rx Sensor device) furosemide 40 mg tablet (Lasix) 40 mg PO BID diuretic #180 tabs 04/25/23 11/16/23 Rx apixaban 5 mg tablet (Eliquis) 5 mg PO BID blood thinner #180 tabs 07/21/23 11/16/23 Rx insulin regular hum U-500 conc 500 75 unit (0.15 mL) continuous 11/11/23 11/16/23 Rx unit/mL subcutaneous soln (Humulin subcutaneous infusion DAILY blood R U-500 (Concentrated) Insulin) sugar #20 mL lisinopril 20 mg tablet 40 mg PO DAILY blood pressure 11/13/23 11/16/23 History empagliflozin 25 mg tablet 25 mg PO DAILY diabetes #30 tabs 11/27/23 Unknown Rx (Jardiance) clopidogrel 75 mg tablet (Plavix) 75 mg PO DAILY anti platelet 21 12/06/23 Unknown Rx days #30 tabs albuterol sulfate 90 mcg/actuation 2 puff inhalation Q4H PRN 02/06/24 Unknown Rx aerosol inhaler (Ventolin HFA) shortness of breath or wheezing #18 grams pantoprazole 40 mg tablet,delayed 40 mg PO BID acid reflux 30 days 02/17/24 Unknown Rx release (Protonix) #60 tabs fenofibrate 54 mg tablet 54 mg PO DAILY cholesterol #30 tabs 02/23/24 Unknown Rx ferrous sulfate 325 mg (65 mg 325 mg PO DAILY anemia 03/02/24 Unknown History iron) tablet (Feosol) amlodipine 5 mg tablet 5 mg PO QDAY 03/13/24 Unknown History aspirin 325 mg tablet 325 mg PO DAILY heart health 03/13/24 Unknown History glimepiride 4 mg tablet 4 mg PO QAM 03/13/24 Unknown History levothyroxine 125 mcg tablet 125 mcg PO DAILY thyroid 03/13/24 Unknown History Allergy/AdvReac Type Severity Reaction Status Date / Time metoclopramide HCl (From Allergy Severe Anaphylaxis Verified 03/19/24 15:02 Sara) Family History Brother Heart disease Mother CVA (cerebral vascular accident) Hypertension Rheumatoid arthritis Father Diabetes Other Alcohol abuse ulcer disease Surgical History (Updated 03/19/24 @ 15:18 by Valentín Rausch) History of cardiac catheterization History of lymph node excision History of left heart catheterization (2009) Hx of nephrolithotomy with removal of calculi History of thoracentesis (2015) Social History household members: spouse and none Smoking Status: Never smoker Electronic Cigarette Use: not used second hand exposure: No alcohol intake: never substance use type: does not use what type of physical activity do you participate in: none Audit: Pertinent Findings Pertinent Findings Stress test pertinent findings: -24 signed EF 60% normal perfusion stress test Echo (EF%) pertinent findings: 12 03/03/2024 EF 60% mild aortic stenosis Consult pertinent findings: Cardiology 03/20/2024 for paroxysmal atrial fibrillation hypertension dyspnea on exertion left carotid bruit Pulmonary function results/spirometer pertinent findings: Chest x-ray 03/20/2024 chronic interstitial changes no interval change Recommendation Anesthesia Recommendation Anesthesia recommendation: OPTIMIZED for anesthesia
[2024-03-27] VITALS (10 sets, daily range): BP systolic 83–139; BP diastolic 59–70; PULSE 71–102; RESP 16–18; TEMP 36.2–36.3; O2SAT 92–100; BMI 45.6
--- NOTE | 2024-03-27 12:21 | PCM.PRE.AN2 ---
ASA Classification* ASA Classification ASA Classification: 3 Assessment & Plan Anesthesia* Anesthesia Assessment Anesthesia Assessment: Discussed sedation and/or anesthesia options, risks, benefits, and alternatives with patient/parents/legal guardian/POA. Questions invited. The patient/parents/legal guardian/POA seems to understand and agrees to proceed with anesthesia plan. Reviewed the physical assessment, medical history, allergy history and patient home medications list prior to surgery/procedure/anesthetic and documented any changes. Performed airway and anesthesia risk assessments. Anesthesia Type Anesthesia Type: MAC Anesthesia Focused Assessment* Temperature: 97.4 F Pulse Rate: 102 Blood Pressure: 108/68 Respiratory Rate: 18 Pulse Ox: 100 Airway Assessment Mouth opens: >3 cm Mallampati Score: II Focused Labs Anesthesia Preop lab: CBC WBC 8.5 K/mm3 (4.4-11.0) 03/03/24 06:25 RBC 4.11 M/mm3 (4.6-6.2) L 03/03/24 06:25 Hgb 9.0 g/dL (13.0-16.5) L 03/03/24 06:25 Hct 31.2 % (40-54) L 03/03/24 06:25 Plt Count 227 K/mm3 (150-450) 03/03/24 06:25 CHEMISTRY Potassium 4.0 mmol/L (3.5-5.1) 03/02/24 12:00 Sodium 136 mmol/L (136-145) 03/02/24 12:00 Magnesium 2.3 mg/dL (1.6-2.6) 02/26/24 10:52 Phosphorus 3.9 mg/dL (2.5-4.9) 08/05/23 10:25 BUN 24 mg/dL (7-18) H 03/02/24 12:00 Creatinine 1.03 mg/dL (0.70-1.30) 03/02/24 12:00 Glucose 220 mg/dL (74-106) H 03/02/24 12:00 POC Glucose 224 mg/dL (74-106) H 01/22/24 10:54 TSH 1.390 uIU/mL (0.358-3.740) 03/03/24 06:25 COAG PT 15.6 SECONDS (11.7-14.9) H 11/16/23 11:36 Pre-Assessment Diagnosis/Proposed Procedure Planned Operative Procedure(s): COLONOSCOPY, EGD Anesthesia History 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 When Was Last Pacemaker Check QUESTION #4 FULL TEXT: You/Your Family Experience fever (hyperthermia) with Anesthesia Last Oral Intake Last Oral intake: Last Oral Intake NPO since 09:00 03/27/24 12:08 Meds taken in AM with sips of Yes 03/27/24 12:08 water? Meds patient instructed to take am of surgery PONV PONV - internet webmaster: PONV - internet webmaster Female No 03/19/24 15:09 HX of Motion Sickness Yes 03/19/24 15:09 HX of N/V After Surgery No 03/19/24 15:09 Non-Smoker Yes 03/19/24 15:09 Duration of Surgery greater No 03/19/24 15:09 than 60 minutes Number of Risk Factors 2 03/19/24 15:09 PONV Score Moderate Risk 03/19/24 15:09 Height & Weight Height & Weight: Anesthesia: Height & Weight Height 5 ft 9 in 03/27/24 12:08 Weight: 140 kg 03/27/24 12:08 Body Mass Index (BMI) 45.6 03/27/24 12:08 Respiratory Assessment Respiratory Assessment - internet webmaster: Respiratory Tract Infection Hx - internet webmaster Hx Respiratory Tract Infection No 03/19/24 15:09 STOP Sleep Apnea STOP Sleep Apnea - internet webmaster: STOP Sleep Apnea - internet webmaster Hx Hypertension Yes 03/19/24 15:09 Hx Sleep Apnea Yes 03/19/24 15:09 CPAP No 03/19/24 15:09 BIPAP Yes 03/19/24 15:09 Do you snore loudly (louder than talking or can be heard Do you often feel tired/ fatigued/ sleepy during daytime? Has anyone observed you stop breathing during sleep? STOP Results Positive 03/19/24 15:09 QUESTION #5 FULL TEXT : Do you snore loudly (louder than talking or can be heard through closed doors)? 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 Specify any problems Hx of Preganancy in last 3 N/A 03/19/24 15:09 Months Nurse Filling Out Transfusion [email or web address] 03/19/24 15:09 & Questions: Date: 03/19/24 03/19/24 15:09 Time: 15:12 03/19/24 15:09 Patient unable to answer at this time (ie. confused, unrespo /Reproduction History /Reproductive History - internet webmaster: /Reproductive Hx- internet webmaster Hx Now Gestational Age (in weeks): EDC: Hx Hx Para Hx Section SAB PFSH Medical History Acute hypoxemic respiratory failure Chronic diastolic CHF (congestive heart failure) Obesity Exertional shortness of breath Iron deficiency anemia due to chronic blood loss Current use of snf anticoagulation Morbid obesity with BMI of 45.0-49.9, adult Atherosclerotic heart disease of [place] coronary artery without angina pectoris Mini stroke (~10/01/23) Peripheral vestibulopathy Ischemic cerebrovascular accident (CVA) Cranial nerve disorder Polyneuropathy Wears glasses Depression Anxiety Cancer Thyroid disease Insulin dependent diabetes mellitus Arthritis History of renal disease Prostate disease Gastric reflux CPAP (continuous positive airway pressure) dependence Sleep apnea Shortness of breath on exertion History of echocardiogram History of stress test History of CHF (congestive heart failure) Cardiology follow-up encounter History of atrial fibrillation Neuropathy Multiple thyroid nodules Microalbuminuria CKD (chronic kidney disease) Thyroid nodule Double vision Presence of insulin pump Non-proliferative diabetic retinopathy KIANNA treated with BiPAP Vertigo Congestive heart failure (CHF) Low testosterone Carotid stenosis High cholesterol Vision loss of right eye Vision loss of left eye Anemia Non-smoker Atrial fibrillation Hypertension Paroxysmal atrial fibrillation Polyneuropathy due to type 2 diabetes mellitus Diabetes History of non-ST elevation myocardial infarction (NSTEMI) (03/28/20) TIA (transient ischemic attack) (2018) Hodgkin disease GERD (gastroesophageal reflux disease) BPH (benign prostatic hyperplasia) Hypothyroidism Essential (primary) hypertension Anxiety and depression Morbid obesity with BMI of 45.0-49.9, adult Nephrolithiasis Hyperlipidemia Diabetes mellitus, type II KIANNA (obstructive sleep apnea) Home Medications ?Medication ?Instructions ?Recorded ?Last Taken ?Type tamsulosin 0.4 mg capsule 0.4 mg PO DAILY prostate 09/08/15 11/16/23 History buspirone 10 mg tablet 10 mg PO TID Anxiety 04/17/18 03/27/24 History duloxetine 60 mg capsule,delayed 60 mg PO DAILY depression 04/17/18 11/16/23 History release (Cymbalta) 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 meter,continuous #1 ea 07/26/20 Unknown Rx (Dexcom G6 Cork Mixer) pen needle, diabetic 31 gauge x #1,200 ea 12/22/20 Unknown History 08/14 pen needle, diabetic 32 gauge x #150 ea 06/01/21 Unknown Rx (BD Ultra-Fine Kiki Pen Needle) atorvastatin 80 mg tablet (Lipitor) 80 mg PO QHS cholesterol 09/04/21 11/15/23 History 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 transmitter (Dexcom #1 ea 12/29/21 Unknown Rx G6 Transmitter device) infusion set for insulin pump 10/08/22 Unknown History insulin pump controller 10/08/22 Unknown History hydrocodone-acetaminophen 5-325mg 1 tab PO BID PRN pain 02/14/23 11/16/23 History 5mg-325mg 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 sensor (Dexcom G6 #1 ea 02/25/23 Unknown Rx Sensor device) furosemide 40 mg tablet (Lasix) 40 mg PO BID diuretic #180 tabs 04/25/23 11/16/23 Rx apixaban 5 mg tablet (Eliquis) 5 mg PO BID blood thinner #180 tabs 07/21/23 03/24/24 Rx insulin regular hum U-500 conc 500 75 unit (0.15 mL) continuous 11/11/23 11/16/23 Rx unit/mL subcutaneous soln (Humulin subcutaneous infusion DAILY blood R U-500 (Concentrated) Insulin) sugar #20 mL lisinopril 20 mg tablet 40 mg PO DAILY blood pressure 11/13/23 11/16/23 History empagliflozin 25 mg tablet 25 mg PO DAILY diabetes #30 tabs 11/27/23 Unknown Rx (Jardiance) clopidogrel 75 mg tablet (Plavix) 75 mg PO DAILY anti platelet 21 12/06/23 03/24/24 Rx days #30 tabs albuterol sulfate 90 mcg/actuation 2 puff inhalation Q4H PRN 02/06/24 Unknown Rx aerosol inhaler (Ventolin HFA) shortness of breath or wheezing #18 grams pantoprazole 40 mg tablet,delayed 40 mg PO BID acid reflux 30 days 02/17/24 03/27/24 Rx release (Protonix) #60 tabs fenofibrate 54 mg tablet 54 mg PO DAILY cholesterol #30 tabs 02/23/24 Unknown Rx ferrous sulfate 325 mg (65 mg 325 mg PO DAILY anemia 03/02/24 Unknown History iron) tablet (Feosol) amlodipine 5 mg tablet 5 mg PO QDAY 03/13/24 03/27/24 History aspirin 325 mg tablet 325 mg PO DAILY heart health 03/13/24 Unknown History glimepiride 4 mg tablet 4 mg PO QAM 03/13/24 Unknown History levothyroxine 125 mcg tablet 125 mcg PO DAILY thyroid 03/13/24 03/27/24 History metoprolol succinate 100 mg 100 mg PO DAILY heart #90 tabs 03/27/24 Unknown Rx tablet,extended release 24 hr Allergy/AdvReac Type Severity Reaction Status Date / Time metoclopramide HCl (From Allergy Severe Anaphylaxis Verified 03/27/24 12:05 Reglan) Family History Brother Heart disease Mother CVA (cerebral vascular accident) Hypertension Rheumatoid arthritis Father Diabetes Other Alcohol abuse ulcer disease Surgical History History of cardiac catheterization History of lymph node excision History of left heart catheterization (2009) Hx of nephrolithotomy with removal of calculi History of thoracentesis (2015) Social History household members: spouse and none Smoking Status: Never smoker Electronic Cigarette Use: not used second hand exposure: No alcohol intake: never substance use type: does not use what type of physical activity do you participate in: none Review of Systems (Anesthesia) ROS Narrative System reviewed and no additional complaints, except as documented.
[2024-03-27 12:36] LABS: Bedside Glucose 195 mg/dL (74-106)
--- NOTE | 2024-03-27 13:00 | IMM_PTH ---
PATIENT: KRUNAL LEOS LOC: EN U#:[id number] AGE/SX: 58/M ROOM: RE03/27/[address]: Dr. Ede Frost DO : 1965 BED: DIS: 03/27/2024 SPEC #: [id number] RECD: 03/30/24 10:18 STATUS: ARDEN RESegundo #: [id number] CATALINA: 03/27/24 13:[address]: Ede Frost DEPT: IMMUNOHISTOCHEMISTRY RECD BY: Cali Oglesby ENTERED: 03/30/24 10:19 SP TYPE: IMMUNO OTHR DR: Dr. Radha Khan MD Tissues: A - Gastric mucous membrane Procedures: H Pylori (initial) PHYSICIAN & INSTITUTION [place] [id number] SPECIMEN INFORMATION: Tissue Source: A- Gastric body polyp Clinical Info: Anemia Specimen Number: [id number] CPT code: 26085 METHODOLOGY: Deparaffinized sections of prefer/formalin-fixed tissue or PAP/DQ stained slides are incubated with monoclonal/polyclonal antibodies/oligonucleotide probes. Localization is made via biotin free immunoperoxidase method. Appropriate controls are performed and reacted as expected. Results on target cell population are indicated in the following table: RESULTS: ANTIBODY / CLONE RESULT Block A H Pylori (polyclonal) positive These tests were developed and their performance characteristics determined by [facility]. They may not have been cleared or approved by the U.[place]. Food and Drug Administration. The FDA has determined that such clearance or approval is not necessary. The above immunohistochemical/dualISH markers are ordered and reviewed by the Pathologist. INTERPRETATION: A. Gastric body polyp, polypectomy: Positive for numerous Helicobacter pylori organisms. 03/31/2024
--- NOTE | 2024-03-27 13:00 | COLBX_PTH ---
PATIENT: KRUNAL LEOS LOC: EN U#:[id number] AGE/SX: 58/M ROOM: RE03/27/[address]: Dr. Ede Frost DO : 1965 BED: DIS: 03/27/2024 SPEC #: [id number] RECD: 03/27/24 17:50 STATUS: ARDEN SHANNON #: [id number] CATALINA: 03/27/24 13:[address]: Ede Frost DEPT: SURGICAL PATHOLOGY RECD BY: Radha Adler ENTERED: 03/30/24 09:42 SP TYPE: COLON BX OTHR DR: Dr. Radha Khan MD Tissues: A - Gastric mucous membrane B - Gastric mucous membrane C - Ascending colon Procedures: Surgery Specimen Level IV HEADER OPERATION: Colonoscopy with polypectomies and biopsy, EGD with polypectomy PRE-OP DIAGNOSIS: Anemia TISSUE SUBMITTED: A- Gastric body polyp, B- Hepatic flexure polyp, C- Ascending colon biopsy and polyp MICROSCOPIC DIAGNOSIS A. Gastric body polyp, polypectomy: Fragments of hyperplastic/inflammatory polyp. See comment. B. Hepatic flexure polyp, polypectomy: Fragments of villous adenoma. C. Ascending colon polyp, biopsy: Fragments of tubular adenoma. 03/31/2024 COMMENT A. The results of immunohistochemistry for Helicobacter pylori will be reported separately ([id number]). MICROSCOPIC DESCRIPTION Slides are reviewed. GROSS DESCRIPTION A. Received in fixative is one container labeled with the patient's name and designated Gastric body polyp. The specimen consists of multiple irregular fragments of light atkins soft tissue that in aggregate measure 1.5 x 0.9 x 0.2 cm. The specimen is totally submitted in one cassette. B. Received in fixative is one container labeled with the patient's name and designated Hepatic flexure polyp. The specimen consists of multiple polyps. Largest polyp measures 1.0 x 1.0 x 1.0cm and is bisected. Second largest polyp measures 0.5 x 0.5 x 0.5cm. Multiple pieces of smaller polyp measuring in aggregate 0.5 x 0.2 x 0.1cm. The entire specimen is submitted in one cassette. C. Received in fixative is one container labeled with the patient's name and designated Ascending colon polyp biopsy. The specimen consists of multiple irregular fragments of light atkins soft tissue that in aggregate measure 0.7 x 0.3 x 0.1 cm. The specimen is totally submitted in one cassette. 03/30/2024 [id number]
--- NOTE | 2024-03-27 13:13 | HP.PCM_ITS ---
HPI - General General Date of Admission: 03/27/24 Date of Service: 03/27/24 Chief Complaint: Anemia HPI Narrative KRUNAL LEOS, is a 58 M who presents to the office today for f/u. *BGI established 12.12.23; Pt has PMHx pertinent for CVA, neuropathy, thyroid nodules, CKD, afib, diabetes, KIANNA and Hodgkin disease. He tells me has had 5 strokes since September and since all of this he has had increased abdominal bloating and gas. He has been taking gas-x every day multiple times a day without relief. He has had no changes in his diet. He did have a colonoscopy [address] Alan and he had a few polyps. He would like to get a repeat colonoscopy. He has never had an EGD OV 02.07.24 Pt reports similar issues as last visit. He continues to have bloating on occasion which is relieved with gas x. He continues to have anemia w/ feeling fatigue and weakness. He sees Dr. Lundberg for his anemia and he is recommending scopes. He was not scheduled at this last appointment as he was on three blood thinners and dealing with the after math of 5 strokes. He is willing to proceed with scopes at this time although this means going off blood thinners for a few days. [facility] Medical History (Updated 03/27/24 @ 13:[address] 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 Morbid obesity with BMI of 45.0-49.9, adult Atherosclerotic heart disease of [place] coronary artery without angina pectoris Mini stroke (~10/01/23) Peripheral vestibulopathy Ischemic cerebrovascular accident (CVA) Cranial nerve disorder Polyneuropathy Wears glasses Depression Anxiety Cancer Thyroid disease Insulin dependent diabetes mellitus Arthritis History of renal disease Prostate disease Gastric reflux CPAP (continuous positive airway pressure) dependence Sleep apnea Shortness of breath on exertion History of echocardiogram History of stress test History of CHF (congestive heart failure) Cardiology follow-up encounter History of atrial fibrillation Neuropathy Multiple thyroid nodules Microalbuminuria CKD (chronic kidney disease) Thyroid nodule Double vision Presence of insulin pump Non-proliferative diabetic retinopathy KIANNA treated with BiPAP Vertigo Congestive heart failure (CHF) Low testosterone Carotid stenosis High cholesterol Vision loss of right eye Vision loss of left eye Anemia Non-smoker Atrial fibrillation Hypertension Paroxysmal atrial fibrillation Polyneuropathy due to type 2 diabetes mellitus Diabetes History of non-ST elevation myocardial infarction (NSTEMI) (03/28/20) TIA (transient ischemic attack) (2019) Hodgkin disease GERD (gastroesophageal reflux disease) BPH (benign prostatic hyperplasia) Hypothyroidism Essential (primary) hypertension Anxiety and depression Morbid obesity with BMI of 45.0-49.9, adult Nephrolithiasis Hyperlipidemia Diabetes mellitus, type II KIANNA (obstructive sleep apnea) Home Medications ?Medication ?Instructions ?Recorded ?Last Taken ?Type tamsulosin 0.4 mg capsule 0.4 mg PO DAILY prostate 09/08/15 11/16/23 History buspirone 10 mg tablet 10 mg PO TID Anxiety 04/17/18 03/27/24 History duloxetine 60 mg capsule,delayed 60 mg PO DAILY depression 04/17/18 11/16/23 History release (Cymbalta) 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 meter,continuous #1 ea 07/26/20 Unknown Rx (Dexcom G6 Sales Center Associate) pen needle, diabetic 31 gauge x #1,200 ea 12/22/20 Unknown History 08/14 pen needle, diabetic 32 gauge x #150 ea 06/01/21 Unknown Rx (BD Ultra-Fine Kiki Pen Needle) atorvastatin 80 mg tablet (Lipitor) 80 mg PO QHS cholesterol 09/04/21 11/15/23 History 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 transmitter (Dexcom #1 ea 12/29/21 Unknown Rx G6 Transmitter device) infusion set for insulin pump 10/08/22 Unknown History insulin pump controller 10/08/22 Unknown History hydrocodone-acetaminophen 5-325mg 1 tab PO BID PRN pain 02/14/23 11/16/23 History 5mg-325mg 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 sensor (Dexcom G6 #1 ea 02/25/23 Unknown Rx Sensor device) furosemide 40 mg tablet (Lasix) 40 mg PO BID diuretic #180 tabs 04/25/23 11/16/23 Rx apixaban 5 mg tablet (Eliquis) 5 mg PO BID blood thinner #180 tabs 07/21/23 03/24/24 Rx insulin regular hum U-500 conc 500 75 unit (0.15 mL) continuous 11/11/23 4 Rx unit/mL subcutaneous soln (Humulin subcutaneous infusion DAILY blood R U-500 (Concentrated) Insulin) sugar #20 mL lisinopril 20 mg tablet 40 mg PO DAILY blood pressure 11/13/23 11/16/23 History empagliflozin 25 mg tablet 25 mg PO DAILY diabetes #30 tabs 11/27/23 Unknown Rx (Jardiance) clopidogrel 75 mg tablet (Plavix) 75 mg PO DAILY anti platelet 21 12/06/23 03/24/24 Rx days #30 tabs albuterol sulfate 90 mcg/actuation 2 puff inhalation Q4H PRN 02/06/24 Unknown Rx aerosol inhaler (Ventolin HFA) shortness of breath or wheezing #18 grams pantoprazole 40 mg tablet,delayed 40 mg PO BID acid reflux 30 days 02/17/24 03/27/24 Rx release (Protonix) #60 tabs fenofibrate 54 mg tablet 54 mg PO DAILY cholesterol #30 tabs 02/23/24 Unknown Rx ferrous sulfate 325 mg (65 mg 325 mg PO DAILY anemia 03/02/24 Unknown History iron) tablet (Feosol) amlodipine 5 mg tablet 5 mg PO QDAY 03/13/24 03/27/24 History aspirin 325 mg tablet 325 mg PO DAILY heart health 03/13/24 Unknown History glimepiride 4 mg tablet 4 mg PO QAM 03/13/24 Unknown History levothyroxine 125 mcg tablet 125 mcg PO DAILY thyroid 03/13/24 03/27/24 History metoprolol succinate 100 mg 100 mg PO DAILY heart #90 tabs 03/27/24 Unknown Rx tablet,extended release 24 hr Allergy/AdvReac Type Severity Reaction Status Date / Time metoclopramide HCl (From Allergy Severe Anaphylaxis Verified 03/27/24 12:05 Sara) Family History Brother Heart disease Mother CVA (cerebral vascular accident) Hypertension Rheumatoid arthritis Father Diabetes Other Alcohol abuse ulcer disease Surgical History History of cardiac catheterization History of lymph node excision History of left heart catheterization (2009) Hx of nephrolithotomy with removal of calculi History of thoracentesis (2015) Social History household members: spouse and none Smoking Status: Never smoker Electronic Cigarette Use: not used second hand exposure: No alcohol intake: never substance use type: does not use what type of physical activity do you participate in: none Vital Signs Vital Signs Vital Signs: 03/27/24 12:08 03/27/24 12:08 03/27/24 12:21 Temperature 97.4 F L 97.4 F L Temperature Source Temporal Pulse Rate 102 H 102 H Respiratory Rate 18 18 Respiratory Pattern Normal Blood Pressure 108/68 108/68 Blood Pressure Mean 81 Blood Pressure Source Monitor Blood Pressure Position Semi-Fowlers Blood Pressure Location Right Arm Pulse Ox 100 100 Oxygen Delivery Method Room Air Weight Weight: 308 lb 10.354 oz Body Mass Index (BMI) 45.6 Physical Exam Const alert, oriented x3, no apparent distress and healthy appearing General Appearance: cooperative GI normal to inspection, nondistended, normoactive bowel sounds, soft to palpation, non-tender and non-distended Percussion: normal to percussion Rectal Exam: deferred Results Lab / Micro Data Labs: Laboratory Results - last 24 hr 03/27/24 12:16: POC Glucose 195 H Assessment & Plan Assessment/Plan (1) Anemia: PLAN: 1) Iron deficiency anemia due to chronic blood loss: Status: Chronic Plan: This is a 58 yo male pt with anemia for some time now. He is on on aspirin, clopidogrel and Eliquis after having 5 strokes in September of 2023. He continues to per anemic and although he is on blood thinners Dr. Lundberg would like for him to undergo endoscopy to look for source of bleeding. He will be scheduled for both upper and lower endoscopy. He is agreeable to plan. -EGD and colonoscopy -Vascular clearance -continue PPI and iron supplement -f/u as needed I have examined the patient and the H&P has been reviewed. There are no clinical changes since date of exam.
--- NOTE | 2024-03-27 14:18 | OP.EGD_ITS ---
Patient Name: Cas Ga Procedure Date: 03/27/2024 1:16 PM Date of : 1965 Age: 58 Procedure: Upper GI endoscopy Indications: Iron deficiency anemia Providers: Ede Frost DO Medicines: Monitored Anesthesia Care Patient Profile: This is a 58 year old male. Refer to note in patient chart for documentation of history and physical. Patient has symptoms. Complications: No immediate complications. Procedure: Pre-Anesthesia Assessment: - Prior to the procedure, a History and Physical was performed, and patient medications and allergies were reviewed. The patient is competent. The risks and benefits of the procedure and the sedation options and risks were discussed with the patient. All questions were answered and informed consent was obtained. Patient identification and proposed procedure were verified in the pre-procedure area. Mental Status Examination: alert and oriented. Airway Examination: normal oropharyngeal airway and neck mobility. Respiratory Examination: clear to auscultation. CV Examination: normal. Prophylactic Antibiotics: The patient does not require prophylactic antibiotics. Prior Anticoagulants: The patient has taken no anticoagulant or antiplatelet agents except for NSAID medication. ASA Grade Assessment: II - A patient with mild systemic disease. After reviewing the risks and benefits, the patient was deemed in satisfactory condition to undergo the procedure. The anesthesia plan was to use monitored anesthesia care (MAC). Immediately prior to administration of medications, the patient was re-assessed for adequacy to receive sedatives. The heart rate, respiratory rate, oxygen saturations, blood pressure, adequacy of pulmonary ventilation, and response to care were monitored throughout the procedure. The physical status of the patient was re-assessed after the procedure. After obtaining informed consent, the endoscope was passed under direct vision. Throughout the procedure, the patient's blood pressure, pulse, and oxygen saturations were monitored continuously. The Colonoscope was introduced through the mouth, and advanced to the fourth part of the duodenum. Small bowel enteroscopy was deemed necessary. The upper GI endoscopy was accomplished without difficulty. The patient tolerated the procedure well. Scope In: 1:32:53 PM Scope Out: 1:42:20 PM Total Procedure Duration Time 0 hours 9 minutes 27 seconds Findings: No gross lesions were noted in the entire esophagus. One 10 mm pedunculated and sessile polyp with bleeding and stigmata of recent bleeding was found in the gastric body. The polyp was removed with a hot snare. Resection and retrieval were complete. Verification of patient identification for the specimen was done. Estimated blood loss was minimal. The fourth portion of the duodenum was normal. A medium-sized hiatal hernia was present. Impression: - No gross lesions in the entire esophagus. - One gastric polyp. Resected and retrieved. - Normal fourth portion of the duodenum. Recommendation: - Discharge patient to home. - Resume previous diet. - Continue present medications. - Await pathology results. Procedure Code(s): --- Professional --- 72896, Small intestinal endoscopy, enteroscopy beyond second portion of duodenum, not including ileum; with removal of tumor(s), polyp(s), or other lesion(s) by snare technique CPT copyright 2021 [employer]. All rights reserved. The codes documented in this report are preliminary and upon torch solderer review may be revised to meet current compliance requirements. Ede Frost DO 03/27/2024 2:18:18 PM This report has been signed electronically. Number of Addenda: 0 Note Initiated On: 03/27/2024 1:16 PM
--- NOTE | 2024-03-27 14:18 | OP.CCLET_ITS ---
03/27/2024 Radha [address] [place] [address] Re : Upper GI endoscopy procedure for Cas Ga Dear Dr. Khan This procedure was performed on Wednesday, March 27, 2024. My impressions and recommendations are as follows: Impressions : - No gross lesions in the entire esophagus. - One gastric polyp. Resected and retrieved. - Normal fourth portion of the duodenum. Recommendations : - Discharge patient to home. - Resume previous diet. - Continue present medications. - Await pathology results. My findings are described in the full procedure note, which is enclosed. If I can be of further assistance, please feel free to contact me at . Sincerely, dEe Frost, 03/27/2024 2:18:18 PM This report has been signed electronically.
--- NOTE | 2024-03-27 14:22 | OP.COLON_ITS ---
Patient Name: Cas Ga Procedure Date: 03/27/2024 1:42 PM Date of : 1965 Age: 58 Procedure: Colonoscopy Indications: Iron deficiency anemia Providers: Ede Frost DO Medicines: Monitored Anesthesia Care Patient Profile: This is a 58 year old male. Refer to note in patient chart for documentation of history and physical. Patient has symptoms. Last Colonoscopy: date unknown. Unable to locate last colonoscopy report. Complications: No immediate complications. Procedure: Pre-Anesthesia Assessment: - Prior to the procedure, a History and Physical was performed, and patient medications and allergies were reviewed. The patient is competent. The risks and benefits of the procedure and the sedation options and risks were discussed with the patient. All questions were answered and informed consent was obtained. Patient identification and proposed procedure were verified in the pre-procedure area. Mental Status Examination: alert and oriented. Airway Examination: normal oropharyngeal airway and neck mobility. Respiratory Examination: clear to auscultation. CV Examination: normal. Prophylactic Antibiotics: The patient does not require prophylactic antibiotics. Prior Anticoagulants: The patient has taken no anticoagulant or antiplatelet agents except for NSAID medication. ASA Grade Assessment: II - A patient with mild systemic disease. After reviewing the risks and benefits, the patient was deemed in satisfactory condition to undergo the procedure. The anesthesia plan was to use monitored anesthesia care (MAC). Immediately prior to administration of medications, the patient was re-assessed for adequacy to receive sedatives. The heart rate, respiratory rate, oxygen saturations, blood pressure, adequacy of pulmonary ventilation, and response to care were monitored throughout the procedure. The physical status of the patient was re-assessed after the procedure. After I obtained informed consent, the scope was passed under direct vision. Throughout the procedure, the patient's blood pressure, pulse, and oxygen saturations were monitored continuously. The Colonoscope was introduced through the anus and advanced to the terminal ileum. The colonoscopy was performed without difficulty. The patient tolerated the procedure well. The quality of the bowel preparation was good. The terminal ileum, ileocecal valve, appendiceal orifice, and rectum were photographed. Scope In: 1:44:15 PM Scope Withdrawal Time 0 hours 5 minutes 33 seconds Scope Out: 2:12:37 PM Total Procedure Duration Time 0 hours 28 minutes 22 seconds Findings: The perianal and digital rectal examinations were normal. A few small-mouthed diverticula were found in the sigmoid colon. A single medium-sized localized angiodysplastic lesion with bleeding was found in the transverse colon. Coagulation for hemostasis using monopolar probe was successful. Estimated blood loss was minimal. A 5 mm polyp was found in the ascending colon. The polyp was sessile. The polyp was removed with a jumbo cold forceps. Resection and retrieval were complete. Verification of patient identification for the specimen was done. Estimated blood loss was minimal. A 10 mm polyp was found in the ascending colon. The polyp was sessile. The polyp was removed with a hot snare. Resection and retrieval were complete. Verification of patient identification for the specimen was done. Estimated blood loss was minimal. A 10 mm polyp was found in the hepatic flexure. The polyp was semi-pedunculated. The polyp was removed with a hot snare. Resection and retrieval were complete. Verification of patient identification for the specimen was done. To prevent bleeding post-intervention, one hemostatic clip was successfully placed. Clip jack setter: [place]. There was no bleeding at the end of the procedure. The terminal ileum appeared normal. Impression: - Diverticulosis in the sigmoid colon. - A single bleeding colonic angiodysplastic lesion. Treated with a monopolar probe. - One 5 mm polyp in the ascending colon, removed with a jumbo cold forceps. Resected and retrieved. - One 10 mm polyp in the ascending colon, removed with a hot snare. Resected and retrieved. - One 10 mm polyp at the hepatic flexure, removed with a hot snare. Resected and retrieved. Clip was placed. Clip jack setter: [place]. - The examined portion of the ileum was normal. Recommendation: - Discharge patient to home. - Resume previous diet. - Continue present medications. - Await pathology results. - Repeat colonoscopy in 3 years for surveillance. Procedure Code(s): --- Professional --- 95899, 59, Colonoscopy, flexible; with control of bleeding, any method 45734, Colonoscopy, flexible; with removal of tumor(s), polyp(s), or other lesion(s) by snare technique 16926, 59, Colonoscopy, flexible; with biopsy, single or multiple CPT copyright 2021 [employer]. All rights reserved. The codes documented in this report are preliminary and upon folded cloth taper review may be revised to meet current compliance requirements. Ede Frost DO 03/27/2024 2:22:10 PM This report has been signed electronically. Number of Addenda: 0 Note Initiated On: 03/27/2024 1:42 PM
--- NOTE | 2024-03-27 14:22 | OP.CCLET_ITS ---
03/27/2024 Radha Khan [address] [place] [address] Re : Colonoscopy procedure for Cas Ga Dear Dr. Khan This procedure was performed on Wednesday, March 27, 2024. My impressions and recommendations are as follows: Impressions : - Diverticulosis in the sigmoid colon. - A single bleeding colonic angiodysplastic lesion. Treated with a monopolar probe. - One 5 mm polyp in the ascending colon, removed with a jumbo cold forceps. Resected and retrieved. - One 10 mm polyp in the ascending colon, removed with a hot snare. Resected and retrieved. - One 10 mm polyp at the hepatic flexure, removed with a hot snare. Resected and retrieved. Clip was placed. 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 - The examined portion of the ileum was normal. Recommendations : - Discharge patient to home. - Resume previous diet. - Continue present medications. - Await pathology results. - Repeat colonoscopy in 3 years for surveillance. My findings are described in the full procedure note, which is enclosed. If I can be of further assistance, please feel free to contact me at . Sincerely, Ede Frost, 03/27/2024 2:22:10 PM This report has been signed electronically.
--- NOTE | 2024-03-27 14:23 | PCM.POST.ANE ---
Anesthesia: Postop Eval I Current Vital Signs Temperature: 97.1 F Pulse Rate: 71 Blood Pressure: 99/70 Respiratory Rate: 16 Pulse Ox: 92 Oxygen Delivery Method: Nasal Cannula Oxygen Flow Rate (L/min): 2 Assessment Airway patent: Yes Spontaneous unlabored respirations: Yes Mental status: Asleep nausea: No Vomiting: No Anesthesia Complication: No Fluid Hydration Crystalloid volume administer (ml): 90 Total IV fluid infused: 90 Progress Note Anesthesia document: Postop Eval 1 completed: Yes
--- NOTE | 2024-03-27 15:15 | PCM.POSTANE2 ---
Anesthesia Postop Eval I Sum Postop Eval Completion status Anesthesia document: Postop Eval 1 completed: Yes Anesthesia Postop Eval I Summary Anesthesia Postop Eval I Summary: Anesthesia Postop Eval I: Assessment Summary Airway patent Yes 03/27/24 14:24 [email or web address] Spontaneous unlabored Yes 03/27/24 14:24 [email or web address] respirations Mental status Asleep 03/27/24 14:24 [email or web address] nausea No 03/27/24 14:24 [email or web address] Vomiting No 03/27/24 14:24 [email or web address] Anesthesia Postop Eval I: Fluid Summary Crystalloid volume administer 90 03/27/24 14:24 [email or web address] (ml) Colloids volume administered ( ml) Blood Product volume administered (ml) Total IV fluid infused 90 03/27/24 14:24 [email or web address] Anesthesia Postop Eval I: Summary Notes Anesthesia Complication No 03/27/24 14:24 [email or web address] Anesthesia Complication Comment: Post-operative progress note Anesthesia: Postop Eval II Evaluation Mental status: Awake Pain Level: 0 nausea: No Vomiting: No
== END 2024-03-27 15:55 | disposition home or self-care (01) ==
LOC: EN 11:50 → AC 11:51
PROVIDERS: PCP Family Medicine; Referring Provider Family Medicine; Visit Provider Internal Medicine Gastroenterology
PROC: 0DJD8ZZ Inspection of Lower Intestinal Tract, Via Natural or Artificial Opening Endoscopic (ICD-10-PCS; CPT 45378; principal; 2024-03-27 12:55)
DX: D50.0 Iron deficiency anemia secondary to blood loss (chronic) (principal); I13.0 Hypertensive heart and chronic kidney disease with heart failure and stage 1 through stage 4 chronic kidney disease, or unspecified chronic kidney disease; I50.32 Chronic diastolic (congestive) heart failure; I48.0 Paroxysmal atrial fibrillation; E11.22 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 with diabetic chronic kidney disease; Z79.4 Long term (current) use of insulin; Z86.73 Personal history of transient ischemic attack (TIA), and cerebral infarction without residual deficits; K57.30 Diverticulosis of large intestine without perforation or abscess without bleeding; K31.7 Polyp of stomach and duodenum; B96.81 Helicobacter pylori [H. pylori] as the cause of diseases classified elsewhere; N18.9 Chronic kidney disease, unspecified; K63.5 Polyp of colon; E78.00 Pure hypercholesterolemia, unspecified; I25.10 Atherosclerotic heart disease of native coronary artery without angina pectoris; Z86.0100 Personal history of colon polyps, unspecified; Z79.01 Long term (current) use of anticoagulants; G47.33 Obstructive sleep apnea (adult) (pediatric); Z99.81 Dependence on supplemental oxygen; I25.2 Old myocardial infarction; N40.0 Benign prostatic hyperplasia without lower urinary tract symptoms; Z79.899 Other long term (current) drug therapy; F41.8 Other specified anxiety disorders; Z79.02 Long term (current) use of antithrombotics/antiplatelets; K21.9 Gastro-esophageal reflux disease without esophagitis; Z79.82 Long term (current) use of aspirin; E03.9 Hypothyroidism, unspecified; Z79.890 Hormone replacement therapy; Z79.84 Long term (current) use of oral hypoglycemic drugs; K44.9 Diaphragmatic hernia without obstruction or gangrene; K63.9 Disease of intestine, unspecified
CPT/HCPCS: 43251; 45380; 45385; 45382; 82962; 88305; 88342; A4216; J2405

== ENCOUNTER → 2024-03-30 | Outpatient (CLI) | payer OTHER, SELFPAY | END | disposition home or self-care (01) | LOC: PSN 08:11 | PROVIDERS: PCP Family Medicine; Referring Provider Nurse Practitioner Acute Care; Visit Provider Nurse Practitioner Acute Care | DX: R06.02 Shortness of breath (principal) | CPT/HCPCS: 94060; 94726; 94729 ==

== ENCOUNTER → 2024-04-09 | Outpatient (CLI) | payer OTHER, SELFPAY ==
[2024-04-09 09:03] VITALS: PULSE 72; PULSE 75; PULSE 85; PULSE 90; PULSE 92; O2SAT 78; O2SAT 84; O2SAT 88; O2SAT 97; O2SAT 99
--- NOTE | 2024-04-09 09:09 | CPS ---
Patient on room air, SpO2 78-80%. Placed patient on 3 lpm O2, SpO2 recovered while sitting to 94%. Patient bent over to tie his shoe before starting walk test, SpO2 dropped to 84%. Increased O2 to 4 lpm before starting testing, SpO2 recovered to 95%. After walking 118 ft. in the 1st minute and 20 seconds, SpO2 84%. Patient wanted to take a break, increased O2 to 6 lpm. SpO2 recovered to 99% before starting walking again. Patient walked another 118 ft. on 6 lpm, SpO2 88%. Patient needed to stop at that time. Patient recovers into the 90's quickly when resting but drops very quickly when ambulating. SpO2 99% while sitting on 6 lpm.
--- NOTE | 2024-04-13 12:57 | WT_ITS ---
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 Assistive device used: None Pre-test Oxygen Delivery Method Room Air Pulse Ox (%) 78 Pulse Rate (60-100 beats/min) 85 Dyspnea Marilyn Scale (0-10) 0 Exertion Marilyn Scale (6-20) 6 1st minute Oxygen Flow Rate (L/min) (L/min) 4 Oxygen Delivery Method Nasal Cannula Pulse Ox (%) 84 Pulse Rate (60-100 beats/min) 92 2nd minute Oxygen Flow Rate (L/min) (L/min) 6 Oxygen Delivery Method Nasal Cannula Pulse Ox (%) 97 Pulse Rate (60-100 beats/min) 75 3rd minute Oxygen Flow Rate (L/min) (L/min) 6 Oxygen Delivery Method Nasal Cannula Pulse Ox (%) 88 Pulse Rate (60-100 beats/min) 90 Dyspnea Marilyn Scale (0-10) 5 Exertion Marilyn Scale (6-20) 15 Post-test Oxygen Flow Rate (L/min) (L/min) 6 Oxygen Delivery Method Nasal Cannula Pulse Ox (%) 99 Pulse Rate (60-100 beats/min) 72 Full Laps Walked 4 Partial Lap, Number of Tiles Walked 0 Total Distance Walked (ft) 236 04/09/24 09:09 Cardiopulmonary Services by [place] Patient on room air, SpO2 78-80%. Placed patient on 3 lpm O2, SpO2 recovered wh ile sitting to 94%. Patient bent over to tie his shoe before starting walk test, SpO2 dropped to 84%. Increased O2 to 4 lpm before starting testing, SpO2 recovered to 95%. After walking 118 ft. in the 1st minute and 20 seconds, SpO2 84%. Patient wanted to take a break, increased O2 to 6 lpm. SpO2 recovered to 99% before starting walking again. Patient walked another 118 ft. on 6 lpm, SpO2 88%. Patient needed to stop at that time. Patient recovers into the 90's quickly when resting but drops very quickly when ambulating. SpO2 99% while sitting on 6 lpm. Initialized on 04/09/24 09:09 - END OF NOTE Interpretation Interpretation: The patient ambulated 236 feet over the course of 3 minutes beginning on room air. Pretesting oxygen saturation was documented to be 78% on room air. 4 L/min of supplemental oxygen was applied to improve the patient's oxygen saturations to 94% prior to testing. With ambulation, the patient desaturated on several occasions requiring an escalation and flow rate to 6 L/min. The walk test was prematurely terminated at 3 minutes. Recommendations Recommendations: 4 L/min of supplemental oxygen is required at rest while 6 L/min is required with exertion. However, given that the test was prematurely terminated, this may underestimate his actual exertional oxygen requirement.
== END | disposition home or self-care (01) ==
LOC: PSN 08:09
PROVIDERS: PCP Family Medicine; Referring Provider Nurse Practitioner Acute Care; Visit Provider Nurse Practitioner Acute Care
DX: R06.02 Shortness of breath (principal)
CPT/HCPCS: 94618

== ENCOUNTER 2024-04-12 11:31 | Inpatient (IN) | payer OTHER, SELFPAY ==
[2024-04-12] VITALS (13 sets, daily range): BP systolic 126–156; BP diastolic 60–70; PULSE 71–89; RESP 18–30; TEMP 36.6–36.9; O2SAT 87–100; BMI 45.7
[2024-04-12 11:54] LABS: Blood Gas Specimen Type VEN; O2 Delivery Device Cannula; SITE Not entered; VBG BASE EXCESS -1 mmol/L (-1.0-3.5); VBG Bicarbonate 23 mmol/L (22-26); VBG PO2 30 mmHg (25-40); VBG SO2 60 % (50-70); VBG TCO2 24 mmol/L (23-33); VBG pCO2 34.8 mmHg (41-51); VBG pH 7.43 (7.32-7.42)
--- NOTE | 2024-04-12 11:56 | RAD_ITS ---
INDICATION: dyspnea EXAMINATION/TECHNIQUE: X-RAY - XR Chest 1 View COMPARISON: Prior study dated: 03/02/2024 FINDINGS: LINES/DEVICES: None. LUNGS: Prominent interstitial markings appear to be chronic. Superimposed opacity/infiltrate in right lower lung new since the previous exam. No evidence of pleural effusions. MEDIASTINUM AND CARDIOVASCULAR STRUCTURES: Stable cardiomediastinal silhouette. BONES AND SOFT TISSUES: Unchanged. RAD/Chest 1 View (Portable) IMPRESSION: New right lower lung infiltrate concerning for pneumonia. Electronically Signed: Vladimir Louie MD at 13:30 EST ,
--- NOTE | 2024-04-12 11:56 | EKG12_ITS ---
Test Reason : REPEAT Blood Pressure : */* mmHG Vent. Rate : 71 BPM Atrial Rate : 71 BPM P-R Int : 154 ms QRS Dur : 110 ms QT Int : 412 ms P-R-T Axes : 15 -12 31 degrees QTcB Int : 447 ms Normal sinus rhythm Left ventricular hypertrophy with repolarization abnormality ( R in aVL , [place] product , Romhilt-E stes ) Abnormal ECG Confirmed by CARO MCRAE, ANGELA ([id number]), state editor JULIAN COSTELLO ([id number]) on 04/13/2024 2:02:59 PM Referred By: Luli Alex Confirmed By: ANGELA ELIZONDO MD
--- NOTE | 2024-04-12 11:57 | EDS_ITS ---
HPI History of Present Illness Chief Complaint: Shortness of Breath Detail of Chief Complaint: Shortness of breath Informant: patient Narrative Narrative: Patient presents to the emergency department with increasing shortness of breath over the last several days. He normally wears 4 to 5 L of O2 at all times and states that at rest his O2 sat is in the 90s but then when he tries to ambulate it precipitously drops into the 80s. Patient denies any chest pain. Denies recent travel or surgery. His noticed increased swelling to his feet this morning. He does have history of CHF. Patient also sees pulmonology for some scarring in his lungs. He has history of rheumatoid arthritis. Patient with prior history of stroke and is currently on Eliquis. Denies fevers or chills or sweats. Has had mild cough that is nonproductive. Denies significant chest pain [facility] Medical History (Updated 04/12/24 @ 13:[address] 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 Morbid obesity with BMI of 45.0-49.9, adult Atherosclerotic heart disease of [place] coronary artery without angina pectoris Mini stroke (~10/01/23) Peripheral vestibulopathy Ischemic cerebrovascular accident (CVA) Cranial nerve disorder Polyneuropathy Wears glasses Depression Anxiety Cancer Thyroid disease Insulin dependent diabetes mellitus Arthritis History of renal disease Prostate disease Gastric reflux CPAP (continuous positive airway pressure) dependence Sleep apnea Shortness of breath on exertion History of echocardiogram History of stress test History of CHF (congestive heart failure) Cardiology follow-up encounter History of atrial fibrillation Neuropathy Multiple thyroid nodules Microalbuminuria CKD (chronic kidney disease) Thyroid nodule Double vision Presence of insulin pump Non-proliferative diabetic retinopathy KIANNA treated with BiPAP Vertigo Congestive heart failure (CHF) Low testosterone Carotid stenosis High cholesterol Vision loss of right eye Vision loss of left eye Anemia Non-smoker Atrial fibrillation Hypertension Paroxysmal atrial fibrillation Polyneuropathy due to type 2 diabetes mellitus Diabetes History of non-ST elevation myocardial infarction (NSTEMI) (03/28/20) TIA (transient ischemic attack) (2019) Hodgkin disease GERD (gastroesophageal reflux disease) BPH (benign prostatic hyperplasia) Hypothyroidism Essential (primary) hypertension Anxiety and depression Morbid obesity with BMI of 45.0-49.9, adult Nephrolithiasis Hyperlipidemia Diabetes mellitus, type II KIANNA (obstructive sleep apnea) Home Medications ?Medication ?Instructions ?Recorded ?Last Taken ?Type tamsulosin 0.4 mg capsule 0.4 mg PO DAILY prostate 09/08/15 11/16/23 History buspirone 10 mg tablet 10 mg PO TID Anxiety 04/17/18 03/27/24 History duloxetine 60 mg capsule,delayed 60 mg PO DAILY depression 04/17/18 11/16/23 History release (Cymbalta) 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 meter,continuous #1 ea 07/26/20 Unknown Rx (Dexcom G6 Irrigation Teacher) pen needle, diabetic 31 gauge x #1,200 ea 12/22/20 Unknown History 08/14 pen needle, diabetic 32 gauge x #150 ea 06/01/21 Unknown Rx (BD Ultra-Fine Kiki Pen Needle) atorvastatin 80 mg tablet (Lipitor) 80 mg PO QHS cholesterol 09/04/21 11/15/23 History 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 transmitter (Dexcom #1 ea 12/29/21 Unknown Rx G6 Transmitter device) infusion set for insulin pump 10/08/22 Unknown History insulin pump controller 10/08/22 Unknown History hydrocodone-acetaminophen 5-325mg 1 tab PO BID PRN pain 02/14/23 11/16/23 History 5mg-325mg 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 sensor (Dexcom G6 #1 ea 02/25/23 Unknown Rx Sensor device) furosemide 40 mg tablet (Lasix) 40 mg PO BID diuretic #180 tabs 04/25/23 11/16/23 Rx apixaban 5 mg tablet (Eliquis) 5 mg PO BID blood thinner #180 tabs 07/21/23 03/24/24 Rx insulin regular hum U-500 conc 500 75 unit (0.15 mL) continuous 11/11/23 11/16/23 Rx unit/mL subcutaneous soln (Humulin subcutaneous infusion DAILY blood R U-500 (Concentrated) Insulin) sugar #20 mL empagliflozin 25 mg tablet 25 mg PO DAILY diabetes #30 tabs 11/27/23 Unknown Rx (Jardiance) clopidogrel 75 mg tablet (Plavix) 75 mg PO DAILY anti platelet 21 12/06/23 03/24/24 Rx days #30 tabs albuterol sulfate 90 mcg/actuation 2 puff inhalation Q4H PRN 02/06/24 Unknown Rx aerosol inhaler (Ventolin HFA) shortness of breath or wheezing #18 grams fenofibrate 54 mg tablet 54 mg PO DAILY cholesterol #30 tabs 02/23/24 Unknown Rx ferrous sulfate 325 mg (65 mg 325 mg PO DAILY anemia 03/02/24 Unknown History iron) tablet (Feosol) amlodipine 5 mg tablet 5 mg PO QDAY 03/13/24 03/27/24 History aspirin 325 mg tablet 325 mg PO DAILY heart health 03/13/24 Unknown History glimepiride 4 mg tablet 4 mg PO QAM 03/13/24 Unknown History levothyroxine 125 mcg tablet 125 mcg PO DAILY thyroid 03/13/24 03/27/24 History metoprolol succinate 100 mg 100 mg PO DAILY heart #90 tabs 03/27/24 Unknown Rx tablet,extended release 24 hr amoxicillin 500 mg capsule 500 mg PO BID 14 days #28 caps 04/02/24 Unknown Rx bismuth subsalicylate 262 mg 2 tab PO TID H. Pylori 2 weeks #84 04/02/24 Unknown Rx chewable tablet tabs clarithromycin 500 mg tablet 500 mg PO BID 2 weeks #28 tabs 04/02/24 Unknown Rx metronidazole 500 mg tablet 500 mg PO BID 2 weeks #28 tabs 04/02/24 Unknown Rx lisinopril 40 mg tablet 40 mg PO QDAY #90 tabs 04/07/24 Unknown Rx pantoprazole 40 mg tablet,delayed 40 mg PO BID acid reflux 30 days 04/07/24 Unknown Rx release (Protonix) #60 tabs Allergy/AdvReac Type Severity Reaction Status Date / Time metoclopramide HCl (From Allergy Severe Anaphylaxis Verified 04/12/24 11:34 Reglan) Family History Brother Heart disease Mother CVA (cerebral vascular accident) Hypertension Rheumatoid arthritis Father Diabetes Other Alcohol abuse ulcer disease Surgical History History of cardiac catheterization History of lymph node excision History of left heart catheterization (2009) Hx of nephrolithotomy with removal of calculi History of thoracentesis (2015) Social History household members: spouse and none Smoking Status: Never smoker Electronic Cigarette Use: not used second hand exposure: No alcohol intake: never substance use type: does not use what type of physical activity do you participate in: none ROS ROS ED Review of Systems ROS Unobtainable: other Constitutional Constitutional ED: Reports lethargy; Denies chills, fever(s), sweats or weight loss Eyes Eyes: Denies blurry vision, change in vision or diplopia ENT ENT ED: Denies rhinorrhea or sore throat Cardiovascular Cardiovascular: Denies chest pain, orthopnea or racing heartbeat Respiratory/Chest Respiratory/Chest: Reports cough, dyspnea and dyspnea on exertion; Denies orthopnea or sputum Gastrointestinal Gastrointestinal: Denies abdominal pain, diarrhea, nausea or vomiting Genitourinary Genitourinary ED: Denies dysuria, hematuria or urinary frequency Musculoskeletal Musculoskeletal: Denies arthralgias, back pain, myalgias or neck pain Integumentary Denies abscess, Abrasions or rash Neurologic Neurologic: Denies headache(s) or weakness Psychiatric Psychiatric: Denies anxiety, depression or suicidal thoughts Endocrine Endocrinology: Denies polydipsia, polyphagia or polyuria Hematologic/Lymphatic Hematologic/Lymphatic: Denies easy bleeding, easy bruising or lymphadenopathy Allergic/Immunologic Allergic/Immunologic ED: Denies mouth swelling, tongue swelling or urticaria EXAM Physical Exam Const Vital Signs: 04/12/24 11:32 04/12/24 11:34 04/12/24 11:35 Temperature 98.5 F 98.5 F Temperature Source Oral Oral Pulse Rate 89 89 Respiratory Rate 24 H 24 H Respiratory Effort Respiratory Depth Respiratory Pattern Blood Pressure 127/68 H 127/68 H Blood Pressure Mean 87 87 Pulse Ox 87 87 95 Oxygen Delivery Method Nasal Cannula Nasal Cannula Nasal Cannula Oxygen Flow Rate (L/min) 4 4 6 04/12/24 11:36 04/12/24 11:56 04/12/24 12:07 Temperature Temperature Source Pulse Rate Respiratory Rate Respiratory Effort Short of Breath Labored Respiratory Depth Normal Respiratory Pattern Normal Blood Pressure Blood Pressure Mean Pulse Ox 100 Oxygen Delivery Method Nasal Cannula Room Air Room Air Oxygen Flow Rate (L/min) 6 04/12/24 12:31 04/12/24 12:34 04/12/24 13:00 Temperature 98.4 F 98.4 F Temperature Source Oral Oral Pulse Rate 73 76 74 Respiratory Rate 25 H 30 H 22 H Respiratory Effort Respiratory Depth Respiratory Pattern Blood Pressure 144/60 H 156/70 H Blood Pressure Mean 88 98 Pulse Ox 98 93 96 Oxygen Delivery Method Room Air Nasal Cannula Nasal Cannula Oxygen Flow Rate (L/min) 4 Positive well nourished and well developed General Appearance ED: well developed and NAD HEENT Reports TM's clear and moist mucous membranes normocephalic and atraumatic; Negative for trauma or tenderness Tympanic Membrane ED: Yes TM's clear Eyes PERRL and EOMs intact bilaterally General Eye ED: Negative for pale conjunctiva or scleral icterus Neck no lymphadenopathy, supple and no JVD General: Negative for tenderness Chest Wall inspection of chest normal and palpation of chest normal Chest: Negative for tenderness Resp normal respiratory effort and clear to auscultation bilaterally Resp Narrative: Few Rales both bases right greater than left. Mild conversational dyspnea and tachypnea. 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 Effort and Inspection: Negative for respiratory distress or pain with movement Auscultation: rales; Negative for rhonchi, wheezes or diminished lung sounds Cardio regular rate, regular rhythm, S1 normal heart sound, S2 normal heart sound and no murmurs Peripheral Pulses: pulses 2+ throughout GI normal to inspection, nondistended, normoactive bowel sounds, soft to palpation, non-tender, non-distended and no masses Back/Spine no CVA tenderness and no thoracic nor lumbar tenderness Extremity normal to inspection Extremity Narrative: +2 edema both lower extremities. General Extremety ED: Negative for edema General Extremity: Negative for edema Neuro oriented x3, CN's II-XII intact bilaterally, no sensory deficits noted and gait normal Sensorium / Orientation: awake, alert, oriented to person, oriented to place and oriented to time Motor Exam: strength 5/5 throughout and strength abnormal Psych mental status grossly normal Skin no rashes or lesions noted and no wounds MDM MDM MDM Narrative Medical decision making narrative: Patient presents with exertional dyspnea and O2 sat at home dropping into the 60s on his 4 to 5 L. He has edema of the lower extremities. Not complaining of any significant chest discomfort. He is on Eliquis therefore we will feel risk for PE is low. Patient also has had some lung issues and being followed by pulmonology and apparently has pulmonary fibrosis. EKG obtained on arrival initially showed sinus rhythm with rate of 83 bpm with left regular hypertrophy. CBC with differential showed a white count of 12.0 with hemoglobin of 8.2 and platelet count of 282. Chemistries unremarkable. Troponin normal 16 BNP was elevated at 124. Chest x-ray obtained interpreted by myself as increased markings in both lungs more consistent on the right suspicious for CHF. I did start patient on Lasix [address] an inch Nitropaste to the anterior chest wall. Patient developed some discomfort in the right side of his chest radiating to his right shoulder therefore repeat EKG was obtained that showed a sinus rhythm with a ventricular rate of 71 bpm with ventricular hypertrophy and no acute ST segment changes otherwise. This point we will discuss case with hospitalist to evaluate patient for admission. COVID flu and RSV testing was negative. Lab Data Attestation: I reviewed the patient's lab results. Labs: Laboratory Results - last 24 hr 04/12/24 04/12/24 11:50 12:47 WBC 12.2 H 12.0 H RBC 3.71 L 3.78 L Hgb 8.2 L 8.2 L Hct 27.8 L 28.3 L MCV 74.9 L 74.9 L MCH 22.1 L 21.7 L MCHC 29.5 L 29.0 L RDW Std Deviation 53.1 H 54.1 H RDW Coeff of Gavi 19.9 H 20.1 H Plt Count 349 282 MPV 10.5 9.6 Immature Gran % (Auto) 0.400 0.400 Neut % (Auto) 81.0 H 80.3 H Lymph % (Auto) 7.4 L 7.5 L Wells % (Auto) 8.5 9.4 Eos % (Auto) 2.3 2.1 Baso % (Auto) 0.4 0.3 Absolute Neuts (auto) 9.9 H 9.6 H Absolute Lymphs (auto) 0.90 0.90 Nucleated RBC % 0 0 Sodium Cancelled 134 L Potassium Cancelled 3.7 Chloride Cancelled 105 Carbon Dioxide Cancelled 26.0 Anion Gap Cancelled 3 L BUN Cancelled 16 Creatinine Cancelled 0.97 Estim Creat Clear Calc Cancelled Est GFR (MDRD) Af Amer Cancelled 101 Est GFR (MDRD) Non-Af Cancelled 84 BUN/Creatinine Ratio Cancelled 16.5 Glucose Cancelled 124 H Calcium Cancelled 9.4 Troponin I High Sens Cancelled 16 B-Natriuretic Peptide 124.0 H ABG Data ABG results: ABG 04/12/24 11:51 Specimen Type JOSHUA Sample Site Not entered O2 % 5.0 VBG pH 7.43 H VBG pO2 30 VBG HCO3 23 VBG Total CO2 24 VBG O2 Sat (Calc) 60 VBG Base Excess -1 POC Mix VBG pCO2 Pt Tmp 34.8 L O2 Delivery Device Cannula Radiography Diagnostic Testin view chest x-ray obtained interpreted by myself as increased markings in both lungs greater on the right consistent with CHF and suspect small right pleural effusion. EKG Initial EKG: Attestation: I personally reviewed and interpreted this EKG as follows: Comments: Sinus rhythm with ventricular rate of 83 bpm with no acute ST segment changes. Repeat EKG unchanged. Discharge Plan Triage Chief Complaint: Shortness of Breath ED Provider: Luli Alex Dx/Rx/DC Orders Clinical Impression: CHF (congestive heart failure), Exertional dyspnea, Leukocytosis, Hypoxemia Prescriptions: No Action (DME) Dexcom G6 Irrigation Teacher Misc See Rx Instructions .ROUTE .MEDSUPPLY Qty: 1 0RF Rx Instructions: As directed (DME) pen needle, diabetic 31 gauge x 5/16 needle See Rx Instructions .ROUTE .MEDSUPPLY Qty: 1200 Patient Comments: use 1 PEN NEEDLE to inject MEDICATION subcutaneously as directed Rx Instructions: As directed (DME) pen needle, diabetic [BD Ultra-Fine Kiki Pen Needle] 32 gauge x 5/32 needle See Rx Instructions .ROUTE .MEDSUPPLY Qty: 150 6RF Rx Instructions: As directed (DME) infusion set for insulin pump Infusion Set See Rx Instructions .Route Rx Instructions: As directed (DME) insulin pump controller Misc See Rx Instructions .Route Rx Instructions: As directed Jardiance 25 mg tablet 25 mg PO DAILY Qty: 30 5RF aspirin 325 mg tablet 325 mg PO DAILY Patient Comments: coated clopidogrel [Plavix] 75 mg tablet 75 mg PO DAILY 21 Days Qty: 30 11RF fenofibrate 54 mg tablet 54 mg PO DAILY Qty: 30 6RF amlodipine 5 mg tablet 5 mg PO QDAY glimepiride 4 mg tablet 4 mg PO QAM Rx Instructions: administer with breakfast levothyroxine 125 mcg tablet 125 mcg PO DAILY tamsulosin 0.4 MG capsule 0.4 mg PO DAILY buspirone 10 MG tablet 10 mg PO TID Rx Instructions: pt states he usually takes 1 daily duloxetine [Cymbalta] 60 MG capsule,delayed release(DR/EC) 60 mg PO DAILY atorvastatin [Lipitor] 80 MG tablet 80 mg PO QHS Rx Instructions: cholesterol hydrocodone-acetaminophen 5-325 mg tablet 1 tab PO BID PRN (Reason: pain) ferrous sulfate [Feosol] 325 mg (65 mg iron) tablet 325 mg PO DAILY (DME) Dexcom G6 Transmitter Device See Rx Instructions .ROUTE .MEDSUPPLY Qty: 1 3RF Rx Instructions: As directed (DME) Dexcom G6 Sensor Device See Rx Instructions .ROUTE .MEDSUPPLY Qty: 1 6RF Rx Instructions: As directed furosemide [Lasix] 40 mg tablet 40 mg PO BID Qty: 180 3RF Eliquis 5 mg tablet 5 mg PO BID Qty: 180 3RF Humulin R U-500 (Conc) Insulin 500 unit/mL solution 75 unit continuous subcutaneous infusion DAILY Qty: 20 5RF Patient Comments: INSULIN PUMP albuterol sulfate [Ventolin HFA] 90 mcg/actuation HFA aerosol inhaler 2 puff inhalation Q4H PRN (Reason: shortness of breath or wheezing) Qty: 18 6RF metoprolol succinate 100 mg tablet extended release 24 hr 100 mg PO DAILY Qty: 90 3RF amoxicillin 500 mg capsule 500 mg PO BID 14 Days Qty: 28 0RF clarithromycin 500 mg tablet 500 mg PO BID 14 Days Qty: 28 0RF metronidazole 500 mg tablet 500 mg PO BID 14 Days Qty: 28 0RF bismuth subsalicylate 262 mg tablet,chewable 2 tab PO TID 14 Days Qty: 84 0RF Rx Instructions: do not exceed 16 tabs per 24 hrs lisinopril 40 mg tablet 40 mg PO QDAY Qty: 90 3RF pantoprazole [Protonix] 40 mg tablet,delayed release (DR/EC) 40 mg PO BID 30 Days Qty: 60 0RF Primary Care Provider: Radha Khan Referrals: Radha Khan MD [Primary Care Provider] - Print Language: Vietnamese Disposition Disposition: Acute Care Hospital [facility]
[2024-04-12 12:09] LABS: Absolute Neutrophil Count 9.9 X10^3/uL (2.0-7.7); Basophil# 0.05 X10^3/uL; Basophil% 0.4 % (0-1); Eosinophil# 0.28 X10^3/uL; Eosinophils% 2.3 % (0-5); Hematocrit 27.8 % (40-54); Hemoglobin 8.2 g/dL (13.0-16.5); Lymphocyte % 7.4 % (19-41); Mean Corp Hgb Conc 29.5 g/dL (32-36); Mean Corpuscular Hgb 22.1 pg (27.0-32.0); Mean Corpuscular Volume 74.9 fL (80-94); Mean Platelet Vol. 10.5 fl (6.2-12.0); Monocyte# 1.03 X10^3/uL; Monocyte% 8.5 % (0-10); NRBC Flagged by Analyzer 0 % (0-5); Neutrophil # 9.86 X10^3/uL (2.7-7.7); Platelet Count 349 K/mm3 (150-450); RBC Distribution Width CV 19.9 % (11.6-14.6); RBC Distribution Width SD 53.1 fl (35.1-43.9); Red Blood Count 3.71 M/mm3 (4.6-6.2); White Blood Count 12.2 K/mm3 (4.4-11.0)
[2024-04-12 13:03] LABS: Absolute Neutrophil Count 9.6 X10^3/uL (2.0-7.7); Basophil# 0.04 X10^3/uL; Basophil% 0.3 % (0-1); Eosinophil# 0.25 X10^3/uL; Eosinophils% 2.1 % (0-5); Hematocrit 28.3 % (40-54); Hemoglobin 8.2 g/dL (13.0-16.5); Lymphocyte % 7.5 % (19-41); Mean Corpuscular Hgb 21.7 pg (27.0-32.0); Mean Corpuscular Volume 74.9 fL (80-94); Mean Platelet Vol. 9.6 fl (6.2-12.0); Monocyte# 1.13 X10^3/uL; Monocyte% 9.4 % (0-10); NRBC Flagged by Analyzer 0 % (0-5); Neutrophil # 9.63 X10^3/uL (2.7-7.7); Neutrophil % 80.3 % (47-70); POSITIVE MORPHOLOGY YES; Platelet Count 282 K/mm3 (150-450); RBC Distribution Width CV 20.1 % (11.6-14.6); RBC Distribution Width SD 54.1 fl (35.1-43.9); Red Blood Count 3.78 M/mm3 (4.6-6.2)
[2024-04-12 13:08] LABS: Differential Indicated SCAN CRITERIA MET
[2024-04-12] MEDS: Furosemide 40 MG/4 ML Vial IV ×2 (13:14→20:34)
[2024-04-12 13:22] LABS: Anion Gap 3 (5-15); BUN 16 mg/dL (7-18); BUN/Creat Ratio 16.5 RATIO (10-20); Calcium,Total 9.4 mg/dL (8.5-10.1); Chloride 105 mmol/L (98-107); Creatinine, Serum 0.97 mg/dL (0.70-1.30); EST Glomerular Filtration Rate 84 mL/min (>60); Est Glom Filt Rate - Afr Amer 101 mL/min (>60); Glucose 124 mg/dL (74-106); Potassium 3.7 mmol/L (3.5-5.1); Sodium Level 134 mmol/L (136-145); Troponin-I HS 16 pg/mL (3.0-78.0)
--- NOTE | 2024-04-12 13:26 | ED.RN ---
Pt family member alerted this RN about chest and upper back pain, pt O2 @ 80% on 5L sitting upright at side of bed. Repeat EKG obtained, Dr. Alex made aware.
--- NOTE | 2024-04-12 13:32 | PCM.HP.STD ---
[facility] - General General Date of Admission: 04/12/24 Date of Service: 04/12/24 Chief Complaint: Shortness of breath HPI Narrative KRUNAL LEOS, is a 58 M with past medical history significant for rheumatoid arthritis, pulmonary fibrosis, chronic congestive heart failure with preserved ejection fraction, chronic hypoxic respiratory failure on baseline home oxygen who presented with shortness of breath. Per patient he was in his usual state of health till the day prior to his admission when he noticed significant shortness of breath with exertion. Per patient his oxygen saturation was dropping to the 70s with exertion. He also did notice increasing swelling involving both lower extremities. Patient presented to the emergency department subsequently an assessment of acute congestive heart failure made admitted to monitored bed for further management [facility] Medical History (Updated 04/12/24 @ 13:[address] Luli Alex DO) Acute hypoxemic respiratory failure Chronic diastolic CHF (congestive heart failure) Obesity Exertional shortness of breath Iron deficiency anemia due to chronic blood loss Current use of fci anticoagulation Morbid obesity with BMI of 45.0-49.9, adult Atherosclerotic heart disease of [place] coronary artery without angina pectoris Mini stroke (~10/01/23) Peripheral vestibulopathy Ischemic cerebrovascular accident (CVA) Cranial nerve disorder Polyneuropathy Wears glasses Depression Anxiety Cancer Thyroid disease Insulin dependent diabetes mellitus Arthritis History of renal disease Prostate disease Gastric reflux CPAP (continuous positive airway pressure) dependence Sleep apnea Shortness of breath on exertion History of echocardiogram History of stress test History of CHF (congestive heart failure) Cardiology follow-up encounter History of atrial fibrillation Neuropathy Multiple thyroid nodules Microalbuminuria CKD (chronic kidney disease) Thyroid nodule Double vision Presence of insulin pump Non-proliferative diabetic retinopathy KIANNA treated with BiPAP Vertigo Congestive heart failure (CHF) Low testosterone Carotid stenosis High cholesterol Vision loss of right eye Vision loss of left eye Anemia Non-smoker Atrial fibrillation Hypertension Paroxysmal atrial fibrillation Polyneuropathy due to type 2 diabetes mellitus Diabetes History of non-ST elevation myocardial infarction (NSTEMI) (03/28/20) TIA (transient ischemic attack) (2018) Hodgkin disease GERD (gastroesophageal reflux disease) BPH (benign prostatic hyperplasia) Hypothyroidism Essential (primary) hypertension Anxiety and depression Morbid obesity with BMI of 45.0-49.9, adult Nephrolithiasis Hyperlipidemia Diabetes mellitus, type II KIANNA (obstructive sleep apnea) Home Medications ?Medication ?Instructions ?Recorded ?Last Taken ?Type tamsulosin 0.4 mg capsule 0.4 mg PO DAILY prostate 09/08/15 11/16/23 History buspirone 10 mg tablet 10 mg PO TID Anxiety 04/17/18 03/27/24 History duloxetine 60 mg capsule,delayed 60 mg PO DAILY depression 04/17/18 11/16/23 History release (Cymbalta) 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 meter,continuous #1 ea 07/26/20 Unknown Rx (Dexcom G6 Instructor Pilot) pen needle, diabetic 31 gauge x #1,200 ea 12/22/20 Unknown History 08/14 pen needle, diabetic 32 gauge x #150 ea 06/01/21 Unknown Rx (BD Ultra-Fine Kiki Pen Needle) atorvastatin 80 mg tablet (Lipitor) 80 mg PO QHS cholesterol 09/04/21 11/15/23 History 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 transmitter (Dexcom #1 ea 12/29/21 Unknown Rx G6 Transmitter device) infusion set for insulin pump 10/08/22 Unknown History insulin pump controller 10/08/22 Unknown History hydrocodone-acetaminophen 5-325mg 1 tab PO BID PRN pain 02/14/23 11/16/23 History 5mg-325mg 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 sensor (Dexcom G6 #1 ea 02/25/23 Unknown Rx Sensor device) furosemide 40 mg tablet (Lasix) 40 mg PO BID diuretic #180 tabs 04/25/23 11/16/23 Rx apixaban 5 mg tablet (Eliquis) 5 mg PO BID blood thinner #180 tabs 07/21/23 03/24/24 Rx insulin regular hum U-500 conc 500 75 unit (0.15 mL) continuous 11/11/23 11/16/23 Rx unit/mL subcutaneous soln (Humulin subcutaneous infusion DAILY blood R U-500 (Concentrated) Insulin) sugar #20 mL empagliflozin 25 mg tablet 25 mg PO DAILY diabetes #30 tabs 11/27/23 Unknown Rx (Jardiance) clopidogrel 75 mg tablet (Plavix) 75 mg PO DAILY anti platelet 21 12/06/23 03/24/24 Rx days #30 tabs albuterol sulfate 90 mcg/actuation 2 puff inhalation Q4H PRN 02/06/24 Unknown Rx aerosol inhaler (Ventolin HFA) shortness of breath or wheezing #18 grams fenofibrate 54 mg tablet 54 mg PO DAILY cholesterol #30 tabs 02/23/24 Unknown Rx ferrous sulfate 325 mg (65 mg 325 mg PO DAILY anemia 03/02/24 Unknown History iron) tablet (Feosol) amlodipine 5 mg tablet 5 mg PO QDAY 03/13/24 03/27/24 History aspirin 325 mg tablet 325 mg PO DAILY heart health 03/13/24 Unknown History glimepiride 4 mg tablet 4 mg PO QAM 03/13/24 Unknown History levothyroxine 125 mcg tablet 125 mcg PO DAILY thyroid 03/13/24 03/27/24 History metoprolol succinate 100 mg 100 mg PO DAILY heart #90 tabs 03/27/24 Unknown Rx tablet,extended release 24 hr amoxicillin 500 mg capsule 500 mg PO BID 14 days #28 caps 04/02/24 Unknown Rx bismuth subsalicylate 262 mg 2 tab PO TID H. Pylori 2 weeks #84 04/02/24 Unknown Rx chewable tablet tabs clarithromycin 500 mg tablet 500 mg PO BID 2 weeks #28 tabs 04/02/24 Unknown Rx metronidazole 500 mg tablet 500 mg PO BID 2 weeks #28 tabs 04/02/24 Unknown Rx lisinopril 40 mg tablet 40 mg PO DAILY 04/12/24 Unknown History pantoprazole 40 mg tablet,delayed 40 mg PO DAILY acid reflux 04/12/24 Unknown History release (Protonix) spironolactone 50 mg tablet 50 mg PO DAILY 04/12/24 Unknown History Allergy/AdvReac Type Severity Reaction Status Date / Time metoclopramide HCl (From Allergy Severe Anaphylaxis Verified 04/12/24 11:34 Reglan) Family History Brother Heart disease Mother CVA (cerebral vascular accident) Hypertension Rheumatoid arthritis Father Diabetes Other Alcohol abuse ulcer disease Surgical History History of cardiac catheterization History of lymph node excision History of left heart catheterization (2009) Hx of nephrolithotomy with removal of calculi History of thoracentesis (2015) Social History household members: spouse and none Smoking Status: Never smoker Electronic Cigarette Use: not used second hand exposure: No alcohol intake: never substance use type: does not use what type of physical activity do you participate in: none ROS ROS Narrative GENERAL: denies fever, chills, night sweats, weight loss, anorexia HEENT: denies headache, sinus congestion, or drainage, dysphagia RESPIRATORY: shortness of breath, dyspnea on exertion CARDIAC: denies chest pain, palpitations, orthopnea, PND GASTROINTESTINAL: denies abdominal pain, nausea, vomiting, melena, GENITOURINARY: denies dysuria, urgency, frequency, heamaturia EXTREMITY: swelling MUSCULOSKELETAL: denies current joint pain or tenderness NEUROLOGIC: denies focal numbness, weakness, tingling HEMATOLOGIC: denies easy bruising and/or hemorrhage INTEGUMENT: denies rashes PSYCHIATRIC: denies suicidal or homicidal ideation Vital Signs Vital Signs Vital Signs: 04/12/24 11:32 04/12/24 11:34 04/12/24 11:35 Temperature 98.5 F 98.5 F Temperature Source Oral Oral Pulse Rate 89 89 Respiratory Rate 24 H 24 H Respiratory Effort Respiratory Depth Respiratory Pattern Blood Pressure 127/68 H 127/68 H Blood Pressure Mean 87 87 Pulse Ox 87 87 95 Oxygen Delivery Method Nasal Cannula Nasal Cannula Nasal Cannula Oxygen Flow Rate (L/min) 4 4 6 04/12/24 11:36 04/12/24 11:56 04/12/24 12:07 Temperature Temperature Source Pulse Rate Respiratory Rate Respiratory Effort Short of Breath Labored Respiratory Depth Normal Respiratory Pattern Normal Blood Pressure Blood Pressure Mean Pulse Ox 100 Oxygen Delivery Method Nasal Cannula Room Air Room Air Oxygen Flow Rate (L/min) 6 04/12/24 12:31 04/12/24 12:34 04/12/24 13:00 Temperature 98.4 F 98.4 F Temperature Source Oral Oral Pulse Rate 73 76 74 Respiratory Rate 25 H 30 H 22 H Respiratory Effort Respiratory Depth Respiratory Pattern Blood Pressure 144/60 H 156/70 H Blood Pressure Mean 88 98 Pulse Ox 98 93 96 Oxygen Delivery Method Room Air Nasal Cannula Nasal Cannula Oxygen Flow Rate (L/min) 4 Physical Exam Narrative GENERAL: cooperative HEENT: Atraumatic; normocephalic EYES; Anicteric, Normal Conjunctiva NECK; supple, normal thyroid, RESPIRATORY: Diminished to auscultation CARDIOVASCULAR: Regular S1 S2, GI: soft, normoactive bowel sounds, : No Renal angle tenderness; EXTREMITIES: Bipedal edema edema, no clubbing, MUSCULOSKELETAL: no muscle wasting NEURO: Awake; no lateralizing signs. SKIN: No Rash PSYCH; Flat affect Results Lab / Micro Data 04/12/24 12:47 04/12/24 12:47 Labs: Laboratory Results - last 24 hr 04/12/24 11:50: WBC 12.2 H, RBC 3.71 L, Hgb 8.2 L, Hct 27.8 L, MCV 74.9 L, MCH 22.1 L, MCHC 29.5 L, RDW Std Deviation 53.1 H, RDW Coeff of Gavi 19.9 H, Plt Count 349, MPV 10.5, Immature Gran % (Auto) 0.400, Neut % (Auto) 81.0 H, Lymph % (Auto) 7.4 L, [place] % (Auto) 8.5, Eos % (Auto) 2.3, Baso % (Auto) 0.4, Absolute Neuts (auto) 9.9 H, Absolute Lymphs (auto) 0.90, Nucleated RBC % 0, Sodium Cancelled, Potassium Cancelled, Chloride Cancelled, Carbon Dioxide Cancelled, Anion Gap Cancelled, BUN Cancelled, Creatinine Cancelled, Estim Creat Clear Calc Cancelled, Est GFR (MDRD) Af Amer Cancelled, Est GFR (MDRD) Non-Af Cancelled, BUN/Creatinine Ratio Cancelled, Glucose Cancelled, Calcium Cancelled, Troponin I High Sens Cancelled, B-Natriuretic Peptide 124.0 H 04/12/24 12:47: WBC 12.0 H, RBC 3.78 L, Hgb 8.2 L, Hct 28.3 L, MCV 74.9 L, MCH 21.7 L, MCHC 29.0 L, RDW Std Deviation 54.1 H, RDW Coeff of Gavi 20.1 H, Plt Count 282, MPV 9.6, Immature Gran % (Auto) 0.400, Neut % (Auto) 80.3 H, Lymph % (Auto) 7.5 L, [place] % (Auto) 9.4, Eos % (Auto) 2.1, Baso % (Auto) 0.3, Absolute Neuts (auto) 9.6 H, Absolute Lymphs (auto) 0.90, Nucleated RBC % 0, Sodium 134 L, Potassium 3.7, Chloride 105, Carbon Dioxide 26.0, Anion Gap 3 L, BUN 16, Creatinine 0.97, Est GFR (MDRD) Af Amer 101, Est GFR (MDRD) Non-Af 84, BUN/Creatinine Ratio 16.5, Glucose 124 H, Calcium 9.4, Troponin I High Sens 16 Micro: Microbiology 04/12/24 12:08 Mucosa - Nose SARS-CoV-2, Influenza & RSV (PCR) - Final ABG Data ABG results: ABG 04/12/24 11:51 Specimen Type JOSHUA Sample Site Not entered O2 % 5.0 VBG pH 7.43 H VBG pO2 30 VBG HCO3 23 VBG Total CO2 24 VBG O2 Sat (Calc) 60 VBG Base Excess -1 POC Mix VBG pCO2 Pt Tmp 34.8 L O2 Delivery Device Cannula Imaging Radiology Impression Chest X-Ray 04/12/24 11:56 IMPRESSION: New right lower lung infiltrate concerning for pneumonia. Electronically Signed: Vladimir Louie MD at 13:30 EST , Assessment & Plan Assessment/Plan (1) CHF (congestive heart failure): (2) Acute hypoxemic respiratory failure: PLAN: Plan Patient is a 58-year-old gentleman presenting with progressive shortness of breath diagnosed with acute congestive heart failure 1. Acute on chronic hypoxic respiratory failure ? Secondary to congestive heart failure with acute exacerbation. Patient has been admitted to a monitored bed with treatment of the underlying condition please on supplemental oxygen titrated to keep 2. Acute on chronic congestive heart failure with preserved ejection fraction ? Patient has been admitted to a monitored bed managed with strict input and output, daily weight, fluid restriction, IV Lasix. 2D echo obtained on 03/02/2024 demonstrated EF of 60% 3. Paroxysmal atrial fibrillation ? Rate controlled on metoprolol, on systemic anticoagulation apixaban 4. Hypertension - Blood pressure controlled, home medications continued with dose adjustment as needed 5. Dyslipidemia -Patient is on statin therapy, continued at home dose 6. Hypothyroidism - Patient is on levothyroxine home dose continued 7. Depression with anxiety ? Did continue home meds 8. Class III obesity ? Complicating care; Weight loss advised 9. Obstructive sleep apnea ? Patient is on BiPAP at night 10. Hodgkin's lymphoma ? Currently in remission 11. Interstitial lung disease ? Patient is followed by Dr. Rodriguez with pulmonary medicine as outpatient 12. Diabetes mellitus type 2 ? Patient is on insulin pump patient to manage his home home also 13. Anemia ? Secondary to chronic disorder. Patient underwent EGD and colonoscopy on 03/27/2024 he was found to have a single bleeding colonic angiodysplastic lesion treated with a monopolar probe. He was also found to have polyps in the ascending colon and hepatic flexure removed with hot snare. Monitoring H&H and transfuse if patient becomes symptomatic or hemoglobin falls below 7 14. History of previous CVA ? Patient is on dual antiplatelet therapy with aspirin and Plavix as well as systemic anticoagulation with apixaban for his paroxysmal A-fib 15.DVT prophylaxis - On on apixaban Time spent in the patient's overall evaluation,decision-making process, review of diagnostic data, adjustment of management, discussion with other providers, nursing nursing and ancillary staff involved in patient's care documentation, 75 Minutes Advance planning; did discuss with the patient and family regarding advanced directives as well as CODE STATUS. Did explain the various scenarios involved ( FULL CODE, DNR CCA, DNR CCA with no intubation, and DNR CC and what each meant) patient elected to be DNR CCA no intubation. Order was placed. Time spent on discussion 16 minutes. Charges/Coding Multi Select Codes Visit Charges Visit Charges: 16914 Init Hosp L3 Hospitalists' Procedures Procedures: 66649 Advncd Care Plan 30 Min
[2024-04-12] MEDS: Nitroglycerin Oint 1 INCH PACKET TD (13:35)
[2024-04-12 15:23] LABS: Troponin-I HS 18 pg/mL (3.0-78.0)
[2024-04-12] MEDS: busPIRone 5 MG Tablet 10 MG PO ×2 (15:51→20:33)
[2024-04-12 18:00] LABS: Bedside Glucose 159 mg/dL (74-106)
[2024-04-12] MEDS: oxyCODONE 5 MG Tablet PO (18:08)
[2024-04-12 19:28] LABS: Troponin-I HS 12 pg/mL (3.0-78.0)
[2024-04-12] MEDS: APIXABAN 5 MG TABLET PO (20:34)
[2024-04-12] MEDS: Pantoprazole Sodium 40 MG Tablet PO (20:34)
[2024-04-12] MEDS: Atorvastatin Calcium 80 MG Tablet PO ×2 (20:34)
[2024-04-12] MEDS: 0.9% Saline Lock 10 ML Syringe IV (20:40)
[2024-04-12] MEDS: Mag Hydrox/Al Hydrox/Simeth 30 ML UDC PO (20:50)
--- NOTE | 2024-04-12 22:51 | CPS ---
Patient requested he wanted to wear a mask for oxygen rather then a nasal cannula. Patient placed on 5L via simple mask. Patient wears a cpap hs at home but said he does not wish to wear one for his stay here.
[2024-04-12 23:28] LABS: Bedside Glucose 161 mg/dL (74-106)
[2024-04-13] VITALS (7 sets, daily range): BP systolic 101–129; BP diastolic 60–70; PULSE 68–99; RESP 16–20; TEMP 36.5–36.8; O2SAT 91–98; BMI 45.7
--- NOTE | 2024-04-13 01:50 | NURSING ---
pt calls out stating his dexcom is reporting low sugar @96. snack provided.
[2024-04-13 05:59] LABS: Absolute Lymphocyte Count 1.53 X10^3/uL (0.83-4.51); Absolute Neutrophil Count 7.3 X10^3/uL (2.0-7.7); Basophil# 0.05 X10^3/uL; Basophil% 0.5 % (0-1); Eosinophil# 0.38 X10^3/uL; Eosinophils% 3.7 % (0-5); Hematocrit 26.7 % (40-54); Hemoglobin 7.7 g/dL (13.0-16.5); Lymphocyte # 1.53 X10^3/ul (0.83-4.51); Lymphocyte % 14.9 % (19-41); Mean Corp Hgb Conc 28.8 g/dL (32-36); Mean Corpuscular Hgb 21.6 pg (27.0-32.0); Mean Corpuscular Volume 74.8 fL (80-94); Mean Platelet Vol. 9.6 fl (6.2-12.0); Monocyte# 1.01 X10^3/uL; Monocyte% 9.8 % (0-10); NRBC Flagged by Analyzer 0 % (0-5); Neutrophil # 7.27 X10^3/uL (2.7-7.7); Neutrophil % 70.8 % (47-70); Platelet Count 289 K/mm3 (150-450); RBC Distribution Width CV 19.9 % (11.6-14.6); RBC Distribution Width SD 53.8 fl (35.1-43.9); Red Blood Count 3.57 M/mm3 (4.6-6.2); White Blood Count 10.3 K/mm3 (4.4-11.0)
[2024-04-13 06:05] LABS: Anion Gap 6 (5-15); BUN 20 mg/dL (7-18); BUN/Creat Ratio 17.1 RATIO (10-20); Calcium,Total 8.9 mg/dL (8.5-10.1); Chloride 101 mmol/L (98-107); Creatinine, Serum 1.17 mg/dL (0.70-1.30); EST Glomerular Filtration Rate 67 mL/min (>60); Est Glom Filt Rate - Afr Amer 82 mL/min (>60); Estimated Creatinine Clearance 93.62 ml/min; Glucose 193 mg/dL (74-106); Magnesium 2.3 mg/dL (1.6-2.6); Phosphorus 4.4 mg/dL (2.5-4.9); Potassium 3.6 mmol/L (3.5-5.1); Sodium Level 134 mmol/L (136-145)
[2024-04-13] MEDS: busPIRone 5 MG Tablet 10 MG PO ×3 (06:21→21:16)
[2024-04-13] MEDS: Furosemide 40 MG/4 ML Vial IV ×3 (06:21→18:58)
[2024-04-13] MEDS: Levothyroxine 125 MCG Tablet PO (06:21)
[2024-04-13] MEDS: oxyCODONE 5 MG Tablet PO ×2 (08:06→16:22)
--- NOTE | 2024-04-13 09:50 | PCM.PN.HOSP ---
Reason for Visit Reason for Visit: Diagnoses Heart failure, unspecified (04/12/24) Acute respiratory failure with hypoxia (04/12/24) Objective Data Objective Data Vital Signs: Vital Signs Temp Pulse Resp BP Pulse Ox O2 Del Method O2 Flow Rate 98.3 F 99 20 H 101/60 91 Nasal Cannula 5 04/13/24 02:56 04/13/24 02:56 04/13/24 06:20 04/13/24 02:56 04/13/24 06:20 04/13/24 08:09 04/13/24 06:20 Oxygen Flow Rate (L/min) 5 Oxygen Delivery Method Nasal Cannula Weight: 309 lb 8.464 oz Body Mass Index (BMI) 45.7 Intake & Output: Intake and Output for Last 24 Hours 04/11/24 04/12/24 04/13/24 23:59 23:59 23:59 Intake Total 450 / 625 295 / 295 Output Total 900 / 900 3650 / 3650 Balance -450 / -275 -3355 / -3355 Lab / Micro Data 04/13/24 05:32 04/13/24 05:32 Labs: Laboratory Results - last 24 hr 04/12/24 11:50: WBC 12.2 H, RBC 3.71 L, Hgb 8.2 L, Hct 27.8 L, MCV 74.9 L, MCH 22.1 L, MCHC 29.5 L, RDW Std Deviation 53.1 H, RDW Coeff of Gavi 19.9 H, Plt Count 349, MPV 10.5, Immature Gran % (Auto) 0.400, Neut % (Auto) 81.0 H, Lymph % (Auto) 7.4 L, [place] % (Auto) 8.5, Eos % (Auto) 2.3, Baso % (Auto) 0.4, Absolute Neuts (auto) 9.9 H, Absolute Lymphs (auto) 0.90, Nucleated RBC % 0, Sodium Cancelled, Potassium Cancelled, Chloride Cancelled, Carbon Dioxide Cancelled, Anion Gap Cancelled, BUN Cancelled, Creatinine Cancelled, Estim Creat Clear Calc Cancelled, Est GFR (MDRD) Af Amer Cancelled, Est GFR (MDRD) Non-Af Cancelled, BUN/Creatinine Ratio Cancelled, Glucose Cancelled, Calcium Cancelled, Troponin I High Sens Cancelled, B-Natriuretic Peptide 124.0 H 04/12/24 12:47: WBC 12.0 H, RBC 3.78 L, Hgb 8.2 L, Hct 28.3 L, MCV 74.9 L, MCH 21.7 L, MCHC 29.0 L, RDW Std Deviation 54.1 H, RDW Coeff of Gavi 20.1 H, Plt Count 282, MPV 9.6, Immature Gran % (Auto) 0.400, Neut % (Auto) 80.3 H, Lymph % (Auto) 7.5 L, [place] % (Auto) 9.4, Eos % (Auto) 2.1, Baso % (Auto) 0.3, Absolute Neuts (auto) 9.6 H, Absolute Lymphs (auto) 0.90, Nucleated RBC % 0, Sodium 134 L, Potassium 3.7, Chloride 105, Carbon Dioxide 26.0, Anion Gap 3 L, BUN 16, Creatinine 0.97, Est GFR (MDRD) Af Amer 101, Est GFR (MDRD) Non-Af 84, BUN/Creatinine Ratio 16.5, Glucose 124 H, Calcium 9.4, Troponin I High Sens 16 04/12/24 14:55: Troponin I High Sens 18 04/12/24 16:59: POC Glucose 159 H 04/12/24 18:50: Troponin I High Sens 12 04/12/24 20:37: POC Glucose 161 H 04/13/24 05:32: WBC 10.3, RBC 3.57 L, Hgb 7.7 L, Hct 26.7 L, MCV 74.8 L, MCH 21.6 L, MCHC 28.8 L, RDW Std Deviation 53.8 H, RDW Coeff of Gavi 19.9 H, Plt Count 289, MPV 9.6, Immature Gran % (Auto) 0.300, Neut % (Auto) 70.8 H, Lymph % (Auto) 14.9 L, [place] % (Auto) 9.8, Eos % (Auto) 3.7, Baso % (Auto) 0.5, Absolute Neuts (auto) 7.3, Absolute Lymphs (auto) 1.53, Nucleated RBC % 0, Sodium 134 L, Potassium 3.6, Chloride 101, Carbon Dioxide 27.0, Anion Gap 6, BUN 20 H, Creatinine 1.17, Estim Creat Clear Calc 93.62, Est GFR (MDRD) Af Amer 82, Est GFR (MDRD) Non-Af 67, BUN/Creatinine Ratio 17.1, Glucose 193 H, Calcium 8.9, Phosphorus 4.4, Magnesium 2.3 Micro: Microbiology 04/12/24 12:08 Mucosa - Nose SARS-CoV-2, Influenza & RSV (PCR) - Final ABG Data ABG results: ABG 04/12/24 11:51 Specimen Type JOSHUA Sample Site Not entered O2 % 5.0 VBG pH 7.43 H VBG pO2 30 VBG HCO3 23 VBG Total CO2 24 VBG O2 Sat (Calc) 60 VBG Base Excess -1 POC Mix VBG pCO2 Pt Tmp 34.8 L O2 Delivery Device Cannula Radiography Diagnostic Testing: Radiology Impression Chest X-Ray 04/12/24 11:56 IMPRESSION: New right lower lung infiltrate concerning for pneumonia. Electronically Signed: Vladimir Louie MD at 13:30 EST , Physical Exam Narrative Patient on 5 L of oxygen. Denies acute shortness of breath at rest. No chest pain. No cough or sputum production. No fever. Has interstitial lung disease Physical exam General: Alert, Oriented x3, Cooperative HEENT: Atraumatic, PERRLA, EOMI, Normocephalic Oral: No Gingival or Mucosal Lesions/ Ulcerations Neck: Supple, No JVD, Negative Carotid Bruits Chest wall/Lungs: Air entry diminished in bilateral lungs. Bilateral inspiratory crackles. Hypoxia Cardiovascular: Regular rate, Regular Rhythm, Normal S1, Normal S2, No M/G/R Abdomen: Bowel Sounds Present, Soft, Non Tender, Non-Distended : No dysuria. No renal angle tenderness. No suprapubic tenderness. Extremities: Mild edema, Capillary Refill Less than 3 Seconds Skin: No rashes, No breakdown Musculoskeletal: No Tenderness to Palpation of Joints or Extremities Neurological: Cranial nerves II-XII grossly intact, DTR 2+/4. No acute focal neurological deficit. Psych/Mental Status: Flat affect Assessment & Plan Assessment/Plan (1) CHF (congestive heart failure): (2) Acute hypoxemic respiratory failure: PLAN: Plan Patient is a 58-year-old gentleman presenting with progressive shortness of breath diagnosed with acute congestive heart failure 1. Acute on chronic hypoxic respiratory failure due to and CHF exacerbation ? Secondary to congestive heart failure with acute exacerbation. Patient has been admitted to a monitored bed with treatment of the underlying condition please on supplemental oxygen titrated to keep 04/13: Chest x-ray initially reviewed shows new infiltrate on the right middle and lower lobe. Cardiomegaly. VBG 7.43/mixed pCO2 34.8. Pneumonia workup ordered. Patient started on IV Zosyn. Triple PCR for SARS-CoV-2, flu and RSV are negative. MRSA nasal screen and respiratory panel ordered. DuoNeb, incentive spirometry and PEP ordered. On Mucinex DM. CT chest without contrast was ordered which shows bilateral groundglass appearance especially his right middle lobe with progression. Stable scarring with bronchiectasis in the upper lobes. Multiple small lymph nodes in the mediastinum compatible with reactive lymphatic hyperplasia. Recent pulmonary exercise test shows 4 L of supplemental oxygen at rest and 6 L on exertion. Started on IV Solu-Medrol. Patient on IV Lasix. Pulmonary consult requested 2. Acute on chronic congestive heart failure with preserved ejection fraction ? Patient has been admitted to a monitored bed managed with strict input and output, daily weight, fluid restriction, IV Lasix. 2D echo obtained on 03/02/2024 demonstrated EF of 60% 3. Paroxysmal atrial fibrillation ? Rate controlled on metoprolol, on systemic anticoagulation apixaban 4. Hypertension - Blood pressure controlled, home medications continued with dose adjustment as needed 5. Dyslipidemia -Patient is on statin therapy, continued at home dose 6. Hypothyroidism - Patient is on levothyroxine home dose continued 7. Depression with anxiety ? Did continue home meds 8. Class III obesity ? Complicating care; Weight loss advised 9. Obstructive sleep apnea ? Patient is on BiPAP at night 10. Hodgkin's lymphoma ? Currently in remission 11. Interstitial lung disease ? Patient is followed by Dr. Rodriguez with pulmonary medicine as outpatient 12. Diabetes mellitus type 2 ? Patient is on insulin pump patient to manage his home home also 13. Anemia ? Secondary to chronic disorder. Patient underwent EGD and colonoscopy on 03/27/2024 he was found to have a single bleeding colonic angiodysplastic lesion treated with a monopolar probe. He was also found to have polyps in the ascending colon and hepatic flexure removed with hot snare. Monitoring H&H and transfuse if patient becomes symptomatic or hemoglobin falls below 7 14. History of previous CVA ? Patient is on dual antiplatelet therapy with aspirin and Plavix as well as systemic anticoagulation with apixaban for his paroxysmal A-fib 15.DVT prophylaxis - On on apixaban Total time of the visit including total time spent in counseling or coordination of care, (more than 50% of the total time, spent in obtaining medical information from nurses and other ancillary care providers ,explaining to the patient about labs, imaging, diagnosis and management of active complex medical conditions), pulmonary consult, review of labs and imaging is 1400 Advance planning; did discuss with the patient and family regarding advanced directives as well as CODE STATUS. Did explain the various scenarios involved ( FULL CODE, DNR CCA, DNR CCA with no intubation, and DNR CC and what each meant) patient elected to be DNR CCA no intubation. Order was placed. Time spent on discussion 16 minutes. Charges/Coding Visit Charges Inpatient E&M: 10461 Subs Hosp L3
[2024-04-13] MEDS: Empagliflozin 25 MG Tablet PO (10:06)
[2024-04-13] MEDS: Aspirin 325 MG Tablet PO (10:07)
[2024-04-13] MEDS: Tamsulosin HCl 0.4 MG Capsule PO (10:07)
[2024-04-13] MEDS: Metoprolol(XL)Succ 100 MG Tablet PO (10:07)
[2024-04-13] MEDS: APIXABAN 5 MG TABLET PO ×2 (10:07→21:17)
[2024-04-13] MEDS: Lisinopril 40 MG Tablet PO (10:07)
[2024-04-13] MEDS: amLODIPine 5 MG Tablet PO (10:08)
[2024-04-13] MEDS: Clopidogrel Bisulfate 75 MG Tablet PO (10:08)
[2024-04-13] MEDS: DULoxetine Hcl 60 MG Capsule PO (10:08)
[2024-04-13] MEDS: Pantoprazole Sodium 40 MG Tablet PO ×2 (10:08→21:16)
--- NOTE | 2024-04-13 11:25 | CASEMGMT ---
RN CM Face to Face with patient for initial transition planning/care coordination assessment. RN CM introduced self and role at [facility]. Patient lying in bed, alert and oriented. Patient willing to participate in assessment and is able to answer all questions appropriately. Care providers, pharmacy, and demographics verified. Strata: 3 PCP: Simone Specialists: Catarino Rodriguez, boring inspector; RYAN, cardiology; , ice cream freezer assistant; Soo, neurologist; Dilia, vascular; Connor, nephro Preferred [facility]acy: [facility] Insurance: MMO Prescription Benefit: yes Living Will/HPOA: yes, Michaelle Ga LNOK: , daughter Living Arrangements: Patient lives with , daughter, and son-in-law in a single story home with 3 steps to enter the home. Patient states he is independent at home. Transportation: self, , family DME/HHC: Patient states he has shower chair, grab bars, raised toilet, cane, walker, nebulizer, bipap, pulse ox, and glucometer with supplies at home. No previous HHC or SNF. Will monitor for home oxygen, prefers [employer] Patient wishes to discharge home, denies need for home health at this time. Patient states he has no further needs or concerns at this time. CM to follow for discharge planning needs that may arise. Disposition Plan: Patient to discharge home with family support and follow-up plans in place. Will monitor for home oxygen. Nury CHANEY, RN, CM
--- NOTE | 2024-04-13 11:59 | CT_ITS ---
STUDY: CT CHEST WITHOUT CONTRAST REASON FOR EXAM: Male, 58 years old. RML/RLL Consolidation, h/O Interstitial lung ds RADIATION DOSAGE (If Supplied By Facility): CTDIvol = ( 18.96 ) mGy, DLP = ( 629.96 ) mGycm TECHNIQUE: Transaxial imaging was performed without the administration of intravenous contrast material. Multiplanar coronal and sagittal images were reformatted. Individualized dose optimization techniques were used for this CT. COMPARISON: Comparison is made with prior study dated March 03, 2024. FINDINGS: CHEST Stable 1.8 cm hypodense nodule in the inferior aspect of the right lobe of the liver. There is hyperinflation of the lungs consistent with chronic obstructive lung disease (COPD). Scarring at the apices worse on the right side with patchy bilateral segmental areas of both groundglass appearance persists in the right midlung. This most likely secondary to scarring. Stable focal scarring along the posterior medial aspect of the right upper lobe. There are calcifications of the coronary arteries. There are multiple small lymph nodes within the mediastinum, which are normal in size and morphology most compatible with reactive lymph hyperplasia. Normal hilar regions. Normal unenhanced pulmonary arteries. There is atherosclerotic calcification of the aortic arch with tortuosity and elongation of the aortic arch and descending thoracic aorta. There are multi-level degenerative changes of the thoracic spine. There is a small hiatal hernia. Small layering gallstones along the dependent portion of the gallbladder lumen. Findings suggestive of a 2.7 cm cyst in the upper pole of the left kidney. CT/Chest without Contrast IMPRESSION: Since prior study, there has been a progression of the groundglass appearance in both lungs especially in the right middle lobe. Stable scarring with bronchiectasis in the upper lobes as well as in the posterior medial aspect of the right upper lobe. Electronically Signed: Chicho Monsalve MD at 12:59 EST ,
[2024-04-13] MEDS: Piperacil/Tazobactam 3.375 GM in 0.9% Normal Saline (50mL MB+) 50 ML IV ×3 (13:03→21:24)
[2024-04-13] MEDS: Ferrous Sulfate 325 MG Tablet PO (13:05)
--- NOTE | 2024-04-13 15:04 | CHAPLAIN ---
Type of Pastoral Visit _x__ Initial Visit ___ Follow-up Visit ___ On-call Visit ___ General Patient Visit ___ Spiritual Assessment ___ Family Conference ___ Bereavement ___ Rapid Response ___ Code Blue ___ Other (describe below) Pastoral Care Referral From _x__ Patient ___ Family ___ Nurse ___ Physician ___ Project Management Consultant ___ [place] ___ Other (describe below) Sacrament/Intervention _x__ Active listening ___ Anointing ___ Amish ___ Bereavement ___ Communion ___ Mary exploration ___ ___ Life review _x__ Prayer ___ Reconciliation ___ Sacrament of Sick _x__ Supportive presence ___ Wedding ___ Other (describe below) Pastoral Comments this patient was seen recently in a previous admission; pt is welcoming and pleasant; pt acknowledges that he is still learning more about his heart condition and how to manage the symptoms; pt welcomes support and prayer; pt is currently without a yazidi and mary community but would like to have one; pt is concerned about his who also has health needs and he hopes that she can remain well while he is in the hospital
[2024-04-13] MEDS: guaiFENesin/D-Methorphan TAB.SR.12H 2 TABLET PO ×2 (16:00→21:16)
[2024-04-13] MEDS: Ipratropium/Albuterol Sulfate 3 ML AMPUL.NEB INHALATION (20:00)
[2024-04-13 21:57] LABS: Bedside Glucose 190 mg/dL (74-106)
[2024-04-14] VITALS (10 sets, daily range): BP systolic 117–150; BP diastolic 61–76; PULSE 69–94; RESP 16–20; TEMP 36.4–36.8; O2SAT 70–96
[2024-04-14 04:07] LABS: Absolute Lymphocyte Count 0.42 X10^3/uL (0.83-4.51); Absolute Neutrophil Count 7.9 X10^3/uL (2.0-7.7); Basophil# 0.02 X10^3/uL; Basophil% 0.2 % (0-1); Hematocrit 28.7 % (40-54); Hemoglobin 8.4 g/dL (13.0-16.5); Lymphocyte # 0.42 X10^3/ul (0.83-4.51); Lymphocyte % 4.9 % (19-41); Mean Corp Hgb Conc 29.3 g/dL (32-36); Mean Corpuscular Hgb 21.8 pg (27.0-32.0); Mean Corpuscular Volume 74.4 fL (80-94); Monocyte# 0.16 X10^3/uL; Monocyte% 1.9 % (0-10); NRBC Flagged by Analyzer 0.2 % (0-5); Neutrophil # 7.91 X10^3/uL (2.7-7.7); Neutrophil % 92.5 % (47-70); POSITIVE DIFFERENTIAL YES; Platelet Count 322 K/mm3 (150-450); RBC Distribution Width CV 19.9 % (11.6-14.6); RBC Distribution Width SD 53.1 fl (35.1-43.9); Red Blood Count 3.86 M/mm3 (4.6-6.2); White Blood Count 8.6 K/mm3 (4.4-11.0)
[2024-04-14 04:31] LABS: AST(SGOT) 16 U/L (15-37); Alanine Aminotransfer ALT/SGPT 19 U/L (16-61); Albumin, Serum 2.7 g/dL (3.2-5.0); Alkaline Phosphatase 77 U/L (45-117); Anion Gap 6 (5-15); BUN 30 mg/dL (7-18); BUN/Creat Ratio 20.1 RATIO (10-20); Chloride 100 mmol/L (98-107); Creatinine, Serum 1.49 mg/dL (0.70-1.30); EST Glomerular Filtration Rate 51 mL/min (>60); Est Glom Filt Rate - Afr Amer 62 mL/min (>60); Estimated Creatinine Clearance 73.51 ml/min; Globulin 5.6 g/dL (2.2-4.2); Glucose 272 mg/dL (74-106); Magnesium 2.5 mg/dL (1.6-2.6); Phosphorus 4.4 mg/dL (2.5-4.9); Protein, Total 8.3 g/dL (6.4-8.2); Sodium Level 132 mmol/L (136-145)
[2024-04-14] MEDS: Levothyroxine 125 MCG Tablet PO (05:16)
[2024-04-14] MEDS: Piperacil/Tazobactam 3.375 GM in 0.9% Normal Saline (50mL MB+) 50 ML IV ×2 (05:17→14:56)
[2024-04-14] MEDS: busPIRone 5 MG Tablet 10 MG PO ×3 (05:17→21:21)
[2024-04-14] MEDS: Ipratropium/Albuterol Sulfate 3 ML AMPUL.NEB INHALATION ×3 (06:59→19:38)
[2024-04-14] MEDS: Metoprolol(XL)Succ 100 MG Tablet PO (09:33)
[2024-04-14] MEDS: amLODIPine 5 MG Tablet PO (09:34)
[2024-04-14] MEDS: Clopidogrel Bisulfate 75 MG Tablet PO (09:34)
[2024-04-14] MEDS: guaiFENesin/D-Methorphan TAB.SR.12H 2 TABLET PO ×2 (09:34→21:22)
[2024-04-14] MEDS: APIXABAN 5 MG TABLET PO ×2 (09:34→21:21)
[2024-04-14] MEDS: DULoxetine Hcl 60 MG Capsule PO (09:34)
[2024-04-14] MEDS: Aspirin 325 MG Tablet PO (09:34)
[2024-04-14] MEDS: Empagliflozin 25 MG Tablet PO (09:34)
[2024-04-14] MEDS: Tamsulosin HCl 0.4 MG Capsule PO (09:34)
[2024-04-14] MEDS: Pantoprazole Sodium 40 MG Tablet PO ×2 (09:34→21:22)
[2024-04-14] MEDS: Furosemide 40 MG/4 ML Vial IV (09:35)
[2024-04-14] MEDS: Lisinopril 40 MG Tablet PO (09:37)
--- NOTE | 2024-04-14 10:34 | EX.PCM.CONCC ---
Assessment & Plan Assessment/Plan (1) Chronic respiratory failure with hypoxia: PLAN: Plan RECOMMENDATIONS: 1. Continue supplemental oxygen as tolerated. 2. Perform walking oximetry study prior to consideration for discharge home. 3. Check procalcitonin. 4. Obtain limited echocardiogram to evaluate for cardiac level shunts. 5. Okay to discontinue antimicrobials from my perspective. 6. Hold diuretics given rising creatinine. 7. Transition from IV steroids to prednisone 40 mg daily to complete a 5-day burst. 8. Follow-up with the pulmonary medicine clinic after discharge. IMPRESSIONS: 1. Acute on chronic hypoxemic respiratory failure The patient has a known history of severe restrictive ventilatory mechanics with reduction in DLCO with radiographic evidence concerning for UIP. There has been interval worsening in his PFTs from October to March. Based upon his recent 6-minute walk test, the patient requires 4 L/min of oxygen at rest and 6 L/min with exertion. He was admitted to the hospital with worsening dyspnea and hypoxemia. He was placed on empiric antibiotics, steroids and diuretics. The patient has improved clinically over the last 24 hours. However, his creatinine has increased. Therefore, recommend discontinuation of Lasix. In addition, I have a low index of suspicion for underlying pulmonary infection. Therefore, antimicrobials can be discontinued from my perspective. Given the degree of his hypoxemia, will obtain limited echocardiogram to evaluate for cardiac level shunt. In the interim, continue current supportive care. Ultimately, the patient needs to follow-up in the pulmonary medicine clinic within 2 weeks of discharge. He does not require referral to rheumatology, given his negative CCP antibody titer. I would, however, consider the initiation of nintedanib for chronic fibrosing interstitial lung disease, given the patient's worsening pulmonary function studies and degree of hypoxemia. 2. History of obstructive sleep apnea/heart failure with preserved ejection fraction/hypothyroidism/GERD/anemia/obesity Complicates care, management, recovery and prognosis. Continue home medications as indicated. Recommend continuing nocturnal PAP therapy per home regimen. This note was generated with [employer] dictation software. It may contain incorrect words, spelling, and punctuation that were not noted in checking the note before signing. HPI Consult Data Date of Consult: 04/14/24 HPI Narrative Reason for Consultation: Respiratory failure HPI Narrative: The patient is a 58-year-old male, with a history as outlined below, who presented to the emergency department on April 12 with worsening dyspnea and hypoxemia. I last saw the patient when he was admitted to the hospital in March 2024 with exertional shortness of breath and hypoxemia, which appeared secondary to an evolving interstitial lung process. The patient has a baseline oxygen requirement of 4 L/min at rest and 6 L/min with exertion, based off of recent 6-minute walk test. His autoimmune workup was only positive for rheumatoid factor, with negative CCP antibodies. He has a known history of restrictive lung disease based upon PFTs. In fact, there was interval worsening in the patient's total lung capacity and DLCO from PFTs completed in October to the end of March 2024. Radiographically, the patient has findings concerning for UIP. On presentation to the emergency department, the patient was documented to be afebrile and hemodynamically stable. He was initially requiring 6 L/min of supplemental oxygen to maintain saturations. Initial laboratory evaluation revealed a white blood cell count of 12,000. Hemoglobin was relatively stable at 8.2 g/dL. Chemistry profile was notable for a sodium of 134. Creatinine was within normal limits. BNP was within normal limits. The patient was admitted to the progressive care unit, where he was initially placed on antimicrobials, steroids and diuretics. The patient has noted improvement in his dyspnea over the last 24 hours. However, his creatinine has increased. [facility] Medical History (Updated 04/14/24 @ 12:[address] Fran Rodriguez DO) Chronic respiratory failure with hypoxia Acute hypoxemic respiratory failure Chronic diastolic CHF (congestive heart failure) Obesity Exertional shortness of breath Iron deficiency anemia due to chronic blood loss Current use of snf anticoagulation Morbid obesity with BMI of 45.0-49.9, adult Atherosclerotic heart disease of [place] coronary artery without angina pectoris Mini stroke (~10/01/23) Peripheral vestibulopathy Ischemic cerebrovascular accident (CVA) Cranial nerve disorder Polyneuropathy Wears glasses Depression Anxiety Cancer Thyroid disease Insulin dependent diabetes mellitus Arthritis History of renal disease Prostate disease Gastric reflux CPAP (continuous positive airway pressure) dependence Sleep apnea Shortness of breath on exertion History of echocardiogram History of stress test History of CHF (congestive heart failure) Cardiology follow-up encounter History of atrial fibrillation Neuropathy Multiple thyroid nodules Microalbuminuria CKD (chronic kidney disease) Thyroid nodule Double vision Presence of insulin pump Non-proliferative diabetic retinopathy KIANNA treated with BiPAP Vertigo Congestive heart failure (CHF) Low testosterone Carotid stenosis High cholesterol Vision loss of right eye Vision loss of left eye Anemia Non-smoker Atrial fibrillation Hypertension Paroxysmal atrial fibrillation Polyneuropathy due to type 2 diabetes mellitus Diabetes History of non-ST elevation myocardial infarction (NSTEMI) (03/28/20) TIA (transient ischemic attack) (2019) Hodgkin disease GERD (gastroesophageal reflux disease) BPH (benign prostatic hyperplasia) Hypothyroidism Essential (primary) hypertension Anxiety and depression Morbid obesity with BMI of 45.0-49.9, adult Nephrolithiasis Hyperlipidemia Diabetes mellitus, type II KIANNA (obstructive sleep apnea) Home Medications ?Medication ?Instructions ?Recorded ?Last Taken ?Type tamsulosin 0.4 mg capsule 0.4 mg PO DAILY prostate 09/08/15 11/16/23 History buspirone 10 mg tablet 10 mg PO TID Anxiety 04/17/18 03/27/24 History duloxetine 60 mg capsule,delayed 60 mg PO DAILY depression 04/17/18 11/16/23 History release (Cymbalta) 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 meter,continuous #1 ea 07/26/20 Unknown Rx (Dexcom G6 Power Driven Brush Maker) pen needle, diabetic 31 gauge x #1,200 ea 12/22/20 Unknown History 08/14 pen needle, diabetic 32 gauge x #150 ea 06/01/21 Unknown Rx / (BD Ultra-Fine Kiki Pen Needle) atorvastatin 80 mg tablet (Lipitor) 80 mg PO QHS cholesterol 09/04/21 11/15/23 History 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 transmitter (Dexcom #1 ea 12/29/21 Unknown Rx G6 Transmitter device) infusion set for insulin pump 10/08/22 Unknown History insulin pump controller 10/08/22 Unknown History hydrocodone-acetaminophen 5-325mg 1 tab PO BID PRN pain 02/14/23 11/16/23 History 5mg-325mg 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 sensor (Dexcom G6 #1 ea 02/25/23 Unknown Rx Sensor device) furosemide 40 mg tablet (Lasix) 40 mg PO BID diuretic #180 tabs 04/25/23 11/16/23 Rx apixaban 5 mg tablet (Eliquis) 5 mg PO BID blood thinner #180 tabs 07/21/23 03/24/24 Rx insulin regular hum U-500 conc 500 75 unit (0.15 mL) continuous 11/11/23 11/16/23 Rx unit/mL subcutaneous soln (Humulin subcutaneous infusion DAILY blood R U-500 (Concentrated) Insulin) sugar #20 mL empagliflozin 25 mg tablet 25 mg PO DAILY diabetes #30 tabs 11/27/23 Unknown Rx (Jardiance) clopidogrel 75 mg tablet (Plavix) 75 mg PO DAILY anti platelet 21 12/06/23 03/24/24 Rx days #30 tabs albuterol sulfate 90 mcg/actuation 2 puff inhalation Q4H PRN 02/06/24 Unknown Rx aerosol inhaler (Ventolin HFA) shortness of breath or wheezing #18 grams fenofibrate 54 mg tablet 54 mg PO DAILY cholesterol #30 tabs 02/23/24 Unknown Rx ferrous sulfate 325 mg (65 mg 325 mg PO DAILY anemia 03/02/24 Unknown History iron) tablet (Feosol) amlodipine 5 mg tablet 5 mg PO QDAY blood pressure 03/13/24 03/27/24 History aspirin 325 mg tablet 325 mg PO DAILY heart health 03/13/24 Unknown History glimepiride 4 mg tablet 4 mg PO QAM 03/13/24 Unknown History levothyroxine 125 mcg tablet 125 mcg PO DAILY thyroid 03/13/24 03/27/24 History metoprolol succinate 100 mg 100 mg PO DAILY heart #90 tabs 03/27/24 Unknown Rx tablet,extended release 24 hr amoxicillin 500 mg capsule 500 mg PO BID 14 days #28 caps 04/02/24 Unknown Rx bismuth subsalicylate 262 mg 2 tab PO TID H. Pylori 2 weeks #84 04/02/24 Unknown Rx chewable tablet tabs clarithromycin 500 mg tablet 500 mg PO BID 2 weeks #28 tabs 04/02/24 Unknown Rx metronidazole 500 mg tablet 500 mg PO BID 2 weeks #28 tabs 04/02/24 Unknown Rx lisinopril 40 mg tablet 40 mg PO DAILY 04/12/24 Unknown History pantoprazole 40 mg tablet,delayed 40 mg PO DAILY acid reflux 04/12/24 Unknown History release (Protonix) spironolactone 50 mg tablet 50 mg PO DAILY 04/12/24 Unknown History Allergy/AdvReac Type Severity Reaction Status Date / Time metoclopramide HCl (From Allergy Severe Anaphylaxis Verified 04/12/24 11:34 Reglan) Family History Brother Heart disease Mother CVA (cerebral vascular accident) Hypertension Rheumatoid arthritis Father Diabetes Other Alcohol abuse ulcer disease Surgical History History of cardiac catheterization History of lymph node excision History of left heart catheterization (2009) Hx of nephrolithotomy with removal of calculi History of thoracentesis (2015) Social History household members: spouse and none Smoking Status: Never smoker Electronic Cigarette Use: not used second hand exposure: No alcohol intake: never substance use type: does not use what type of physical activity do you participate in: none ROS ROS Narrative 10 systems were reviewed with pertinent positives as noted in the HPI above. Physical Exam Const alert and no apparent distress Constitutional Narrative: Morbidly obese. General Appearance: cooperative HEENT normocephalic, head/scalp atraumatic and moist oral mucous membranes Eyes PERRL, EOMs intact bilaterally and conjunctivae normal Neck supple General: trachea midline Chest inspection of chest normal Resp normal respiratory effort Auscultation: rales and diminished lung sounds Cardio regular rate and regular rhythm GI normal to inspection, nondistended, normoactive bowel sounds Extremity no clubbing, cyanosis or edema Skin no rashes or lesions noted Neuro CN's II-XII intact bilaterally, moves all extremities and no focal motor deficits Psych cooperative and affect normal Lab / Micro Data 04/14/24 03:45 04/14/24 03:45 Labs: Laboratory Results - last 24 hr 04/13/24 21:23: POC Glucose 190 H 04/14/24 03:45: WBC 8.6, RBC 3.86 L, Hgb 8.4 L, Hct 28.7 L, MCV 74.4 L, MCH 21.8 L, MCHC 29.3 L, RDW Std Deviation 53.1 H, RDW Coeff of Gavi 19.9 H, Plt Count 322, MPV 10.0, Immature Gran % (Auto) 0.500, Neut % (Auto) 92.5 H, Lymph % (Auto) 4.9 L, [place] % (Auto) 1.9, Eos % (Auto) 0.0, Baso % (Auto) 0.2, Absolute Neuts (auto) 7.9 H, Absolute Lymphs (auto) 0.42 L, Nucleated RBC % 0.2, Sodium 132 L, Potassium 4.0, Chloride 100, Carbon Dioxide 26.0, Anion Gap 6, BUN 30 H, Creatinine 1.49 H, Estim Creat Clear Calc 73.51, Est GFR (MDRD) Af Amer 62, Est GFR (MDRD) Non-Af 51 L, BUN/Creatinine Ratio 20.1 H, Glucose 272 H, Calcium 9.0, Phosphorus 4.4, Magnesium 2.5, Total Bilirubin 0.80, Direct Bilirubin 0.20, AST 16, ALT 19, Alkaline Phosphatase 77, Total Protein 8.3 H, Albumin 2.7 L, Globulin 5.6 H Micro: Microbiology 04/12/24 13:17 Blood Culture (Wb) - Venous Bacteria Detection (PCR) - Final 04/12/24 13:17 Blood Culture (Wb) - Venous Blood Culture - Preliminary 04/13/24 16:00 Urine, Clean Catch Legionella Antigen - Final 04/13/24 14:50 Mucosa - Nasopharyngeal Respiratory Panel (PCR) - Final Imaging Radiology Impression Chest CT 04/13/24 11:59 IMPRESSION: Since prior study, there has been a progression of the groundglass appearance in both lungs especially in the right middle lobe. Stable scarring with bronchiectasis in the upper lobes as well as in the posterior medial aspect of the right upper lobe. Electronically Signed: Chicho Monsalve MD at 12:59 EST , Charges/Coding Visit Charges Inpatient E&M: 64414 Init Hosp L3
--- NOTE | 2024-04-14 11:56 | ECHOL_ITS ---
Reason For Study: SHORTNESS OF BREATH Procedure This was a 2D Doppler, Color Flow transthoracic echocardiogram. Full echo with Definity done 03/02/24. Exam performed portable in patient room. Left Ventricle Normal LV size. Mild concentric left ventricular hypertrophy. Left ventricular systolic function is normal. The left ventricular ejection fraction is 60 %. No regional wall motion abnormalities noted. Right Ventricle Normal RV size. Normal systolic function. Atria The left atrium is mildly enlarged. The right atrium is mildly enlarged. Bubble contrast study is negative for PFO/ASD. Mitral Valve There is mild to moderate mitral annular calcification. Tricuspid Valve Normal tricuspid valve. Aortic Valve Trisinus/trileaflet aortic valve. Pulmonic Valve Normal pulmonic valve. Great Vessels Normal aortic root. The pulmonary artery is normal size. Inferior vena cava collapse with respiration. Pericardium/Pleural No pericardial effusion. Medication Performed a rapid injection of agitated mix of 9 cc saline and 1cc air to assess for atrial septal defect. MMode/2D Measurements & Calculations LVIDd: 5.6 cm IVSd: 1.4 cm LVOT diam: 2.2 cm LVIDs: 3.7 cm LVPWd: 1.2 cm RVDd: 3.8 cm FS: 33.3 % LVOT area: 3.8 cm2 LAV(MOD-bp): 86.5 ml LVAd ap4: 28.1 cm2 LVAd ap2: 28.1 cm2 LAV(MOD-bp) Indexed: 34.8 ml/m2 LVLd ap4: 7.7 cm LVLd ap2: 8.3 cm LAV(MOD-sp2): 95.9 ml EDV(MOD-sp4): 86.0 ml EDV(MOD-sp2): 78.5 ml LAV(MOD-sp4): 75.3 ml EDV(sp4-el): 87.0 ml EDV(sp2-el): 80.6 ml LVAs ap4: 15.2 cm2 LVAs ap2: 14.7 cm2 LVLs ap4: 6.2 cm LVLs ap2: 6.3 cm ESV(MOD-sp4): 32.0 ml ESV(MOD-sp2): 29.1 ml ESV(sp4-el): 31.5 ml ESV(sp2-el): 29.1 ml EF(MOD-sp4): 62.8 % EF(MOD-sp2): 62.9 % EF(sp4-el): 63.8 % SV(MOD-sp4): 54.0 ml SV(MOD-sp2): 49.4 ml SV(sp4-el): 55.5 ml SI(MOD-sp4): 21.7 ml/m2 SI(MOD-sp2): 19.9 ml/m2 Ao sinus diam: 3.[address] Junction: 2.9 cm LA A4 area: 24.0 cm2 LA dimension(2D): 4.8 cm RA A4 area: 21.3 cm2 ECHO/Echo, Limited Study Interpretation Summary Bubble contrast study is negative for PFO/ASD. Normal LV size. Left ventricular systolic function is normal. The left ventricular ejection fraction is 60 %. There is mild to moderate mitral annular calcification. Mild concentric left ventricular hypertrophy. Ordering Physician: Fran Rodriguez Referring Physician: Radha Khan M.D. Performed By: Trinidad Johnson RDCS
[2024-04-14] MEDS: Ferrous Sulfate 325 MG Tablet PO (12:25)
[2024-04-14 13:35] LABS: Procalcitonin 0.18 ng/mL (0.00-0.09)
[2024-04-14] MEDS: 0.9% Saline Lock 10 ML Syringe IV ×2 (15:04→21:21)
--- NOTE | 2024-04-14 15:54 | PCM.PN.HOSP ---
Reason for Visit Reason for Visit: Diagnoses Heart failure, unspecified (04/12/24) Acute respiratory failure with hypoxia (04/12/24) Chronic respiratory failure with hypoxia (04/12/24) Objective Data Objective Data Vital Signs: Vital Signs Temp Pulse Resp BP Pulse Ox O2 Del Method O2 Flow Rate 98.2 F 88 17 142/76 H 94 Nasal Cannula 3 04/14/24 15:00 04/14/24 15:00 04/14/24 15:00 04/14/24 15:00 04/14/24 15:00 04/14/24 15:00 04/14/24 15:00 FiO2 91 04/13/24 20:00 Oxygen Flow Rate (L/min) 3 Oxygen Delivery Method Nasal Cannula Weight: 309 lb 8.464 oz Body Mass Index (BMI) 45.7 Intake & Output: Intake and Output for Last 24 Hours 04/12/24 04/13/24 04/14/24 23:59 23:59 23:59 Intake Total 450 / 625 956.88 / 1106.88 1010 / 1010 Output Total 900 / 900 3650 / 3950 2150 / 2150 Balance -450 / -275 -2693.12 / -2843.12 -1140 / -1140 Lab / Micro Data 04/14/24 03:45 04/14/24 03:45 Labs: Laboratory Results - last 24 hr 04/13/24 21:23: POC Glucose 190 H 04/14/24 03:45: WBC 8.6, RBC 3.86 L, Hgb 8.4 L, Hct 28.7 L, MCV 74.4 L, MCH 21.8 L, MCHC 29.3 L, RDW Std Deviation 53.1 H, RDW Coeff of Gavi 19.9 H, Plt Count 322, MPV 10.0, Immature Gran % (Auto) 0.500, Neut % (Auto) 92.5 H, Lymph % (Auto) 4.9 L, [place] % (Auto) 1.9, Eos % (Auto) 0.0, Baso % (Auto) 0.2, Absolute Neuts (auto) 7.9 H, Absolute Lymphs (auto) 0.42 L, Nucleated RBC % 0.2, Sodium 132 L, Potassium 4.0, Chloride 100, Carbon Dioxide 26.0, Anion Gap 6, BUN 30 H, Creatinine 1.49 H, Estim Creat Clear Calc 73.51, Est GFR (MDRD) Af Amer 62, Est GFR (MDRD) Non-Af 51 L, BUN/Creatinine Ratio 20.1 H, Glucose 272 H, Calcium 9.0, Phosphorus 4.4, Magnesium 2.5, Total Bilirubin 0.80, Direct Bilirubin 0.20, AST 16, ALT 19, Alkaline Phosphatase 77, Total Protein 8.3 H, Albumin 2.7 L, Globulin 5.6 H, Procalcitonin 0.18 H Micro: Microbiology 04/12/24 13:17 Blood Culture (Wb) - Venous Bacteria Detection (PCR) - Final 04/12/24 13:17 Blood Culture (Wb) - Venous Blood Culture - Preliminary Presumptive Micrococcus spp. 04/12/24 13:57 Blood Culture (Wb) - Right Forearm Blood Culture - Preliminary No growth in 48 hours. 04/13/24 16:00 Urine, Clean Catch Legionella Antigen - Final 04/13/24 14:50 Mucosa - Nasopharyngeal Respiratory Panel (PCR) - Final 04/12/24 12:08 Mucosa - Nose SARS-CoV-2, Influenza & RSV (PCR) - Final Radiography Diagnostic Testing: Radiology Impression Echocardiogram 04/14/24 11:56 Interpretation Summary Bubble contrast study is negative for PFO/ASD. Normal LV size. Left ventricular systolic function is normal. The left ventricular ejection fraction is 60 %. There is mild to moderate mitral annular calcification. Mild concentric left ventricular hypertrophy. Ordering Physician: Fran Rodriguez Referring Physician: Radha Khan M.D. Performed By: Trinidad Johnson RDCS Physical Exam Narrative Seen and examined. Patient currently on 4 L of O2 at rest and 6 L with exertion. Denies acute shortness of breath at rest but had to stop because of dyspnea on home oxygen qualification test. No chest pain. No cough or sputum production. No fever. Has interstitial lung disease Physical exam General: Alert, Oriented x3, Cooperative HEENT: Atraumatic, PERRLA, EOMI, Normocephalic Oral: No Gingival or Mucosal Lesions/ Ulcerations Neck: Supple, No JVD, Negative Carotid Bruits Chest wall/Lungs: Air entry diminished in bilateral lungs. Bilateral inspiratory crackles. Hypoxia Cardiovascular: Regular rate, Regular Rhythm, Normal S1, Normal S2, No M/G/R Abdomen: Bowel Sounds Present, Soft, Non Tender, Non-Distended : No dysuria. No renal angle tenderness. No suprapubic tenderness. Extremities: Mild edema, Capillary Refill Less than 3 Seconds Skin: No rashes, No breakdown Musculoskeletal: No Tenderness to Palpation of Joints or Extremities Neurological: Cranial nerves II-XII grossly intact, DTR 2+/4. No acute focal neurological deficit. Psych/Mental Status: Flat affect Assessment & Plan Assessment/Plan (1) CHF (congestive heart failure): (2) Acute hypoxemic respiratory failure: PLAN: Plan Patient is a 58-year-old gentleman presenting with progressive shortness of breath diagnosed with acute congestive heart failure 1. Acute on chronic hypoxic respiratory failure due to and CHF exacerbation ? Secondary to congestive heart failure with acute exacerbation. Patient has been admitted to a monitored bed with treatment of the underlying condition please on supplemental oxygen titrated to keep 04/13: Chest x-ray initially reviewed shows new infiltrate on the right middle and lower lobe. Cardiomegaly. VBG 7.43/mixed pCO2 34.8. Pneumonia workup ordered. Patient started on IV Zosyn. Triple PCR for SARS-CoV-2, flu and RSV are negative. MRSA nasal screen and respiratory panel ordered. DuoNeb, incentive spirometry and PEP ordered. On Mucinex DM. CT chest without contrast was ordered which shows bilateral groundglass appearance especially his right middle lobe with progression. Stable scarring with bronchiectasis in the upper lobes. Multiple small lymph nodes in the mediastinum compatible with reactive lymphatic hyperplasia. Recent pulmonary exercise test shows 4 L of supplemental oxygen at rest and 6 L on exertion. Started on IV Solu-Medrol. Patient on IV Lasix. Pulmonary consult requested 04/14: Pulmonary consult reviewed and appreciated. Limited echo negative for PFO/ASD. IV antibiotic discontinued as pneumonia ruled out. Patient is still very dyspneic on home oxygen qualification on ambulation therefore discharge plan was canceled. Continue IV Solu-Medrol. 2. Acute on chronic congestive heart failure with preserved ejection fraction ? Patient has been admitted to a monitored bed managed with strict input and output, daily weight, fluid restriction, IV Lasix. 2D echo obtained on 03/02/2024 demonstrated EF of 60% 3. Paroxysmal atrial fibrillation ? Rate controlled on metoprolol, on systemic anticoagulation apixaban 4. Hypertension - Blood pressure controlled, home medications continued with dose adjustment as needed 5. Dyslipidemia -Patient is on statin therapy, continued at home dose 6. Hypothyroidism - Patient is on levothyroxine home dose continued 7. Depression with anxiety ? Did continue home meds 8. Class III obesity ? Complicating care; Weight loss advised 9. Obstructive sleep apnea ? Patient is on BiPAP at night 10. Hodgkin's lymphoma ? Currently in remission 11. Interstitial lung disease ? Patient is followed by Dr. Rodriguez with pulmonary medicine as outpatient 12. Diabetes mellitus type 2 ? Patient is on insulin pump patient to manage his home home also 13. Anemia ? Secondary to chronic disorder. Patient underwent EGD and colonoscopy on 03/27/2024 he was found to have a single bleeding colonic angiodysplastic lesion treated with a monopolar probe. He was also found to have polyps in the ascending colon and hepatic flexure removed with hot snare. Monitoring H&H and transfuse if patient becomes symptomatic or hemoglobin falls below 7 14. History of previous CVA ? Patient is on dual antiplatelet therapy with aspirin and Plavix as well as systemic anticoagulation with apixaban for his paroxysmal A-fib 15.DVT prophylaxis - On on apixaban Total time of the visit including total time spent in counseling or coordination of care, (more than 50% of the total time, spent in obtaining medical information from nurses and other ancillary care providers ,explaining to the patient about labs, imaging, diagnosis and management of active complex medical conditions), pulmonary consult, review of labs and imaging is 1400 Advance planning; did discuss with the patient and family regarding advanced directives as well as CODE STATUS. Did explain the various scenarios involved ( FULL CODE, DNR CCA, DNR CCA with no intubation, and DNR CC and what each meant) patient elected to be DNR CCA no intubation. Order was placed. Time spent on discussion 16 minutes. Charges/Coding Visit Charges Inpatient E&M: 70900 Subs Hosp L2
[2024-04-14] MEDS: oxyCODONE 5 MG Tablet PO (17:34)
[2024-04-14] MEDS: Atorvastatin Calcium 80 MG Tablet PO (21:22)
[2024-04-14 21:47] LABS: Bedside Glucose 259 mg/dL (74-106)
[2024-04-15] VITALS (8 sets, daily range): BP systolic 102–159; BP diastolic 64–66; PULSE 78–90; RESP 16–20; TEMP 36.4–36.6; O2SAT 70–95; BMI 44.5
[2024-04-15] MEDS: busPIRone 5 MG Tablet 10 MG PO ×2 (06:31→14:53)
[2024-04-15] MEDS: Levothyroxine 125 MCG Tablet PO (06:31)
[2024-04-15] MEDS: 0.9% Saline Lock 10 ML Syringe IV (06:31)
[2024-04-15 06:53] LABS: Absolute Lymphocyte Count 0.77 X10^3/uL (0.83-4.51); Absolute Neutrophil Count 9.9 X10^3/uL (2.0-7.7); Basophil# 0.01 X10^3/uL; Basophil% 0.1 % (0-1); Eosinophil# 0.01 X10^3/uL; Eosinophils% 0.1 % (0-5); Hematocrit 28.9 % (40-54); Hemoglobin 8.5 g/dL (13.0-16.5); Lymphocyte # 0.77 X10^3/ul (0.83-4.51); Mean Corp Hgb Conc 29.4 g/dL (32-36); Mean Corpuscular Hgb 21.8 pg (27.0-32.0); Mean Corpuscular Volume 74.1 fL (80-94); Mean Platelet Vol. 9.8 fl (6.2-12.0); Monocyte# 0.26 X10^3/uL; Monocyte% 2.4 % (0-10); NRBC Flagged by Analyzer 0 % (0-5); Neutrophil # 9.86 X10^3/uL (2.7-7.7); Neutrophil % 89.8 % (47-70); Platelet Count 341 K/mm3 (150-450); RBC Distribution Width CV 19.6 % (11.6-14.6); RBC Distribution Width SD 52.3 fl (35.1-43.9)
[2024-04-15] MEDS: Ipratropium/Albuterol Sulfate 3 ML AMPUL.NEB INHALATION (07:06)
[2024-04-15 07:23] LABS: Anion Gap 8 (5-15); BUN 34 mg/dL (7-18); BUN/Creat Ratio 29.8 RATIO (10-20); Calcium,Total 9.4 mg/dL (8.5-10.1); Chloride 103 mmol/L (98-107); Creatinine, Serum 1.14 mg/dL (0.70-1.30); EST Glomerular Filtration Rate 70 mL/min (>60); Est Glom Filt Rate - Afr Amer 84 mL/min (>60); Estimated Creatinine Clearance 94.72 ml/min; Glucose 154 mg/dL (74-106); Potassium 4.4 mmol/L (3.5-5.1); Sodium Level 135 mmol/L (136-145)
[2024-04-15] MEDS: Lisinopril 40 MG Tablet PO (09:24)
[2024-04-15] MEDS: Clopidogrel Bisulfate 75 MG Tablet PO (09:25)
[2024-04-15] MEDS: Empagliflozin 25 MG Tablet PO (09:25)
[2024-04-15] MEDS: APIXABAN 5 MG TABLET PO (09:25)
[2024-04-15] MEDS: amLODIPine 5 MG Tablet PO (09:25)
[2024-04-15] MEDS: Aspirin 325 MG Tablet PO (09:25)
[2024-04-15] MEDS: guaiFENesin/D-Methorphan TAB.SR.12H 2 TABLET PO (09:25)
[2024-04-15] MEDS: Metoprolol(XL)Succ 100 MG Tablet PO (09:25)
[2024-04-15] MEDS: Pantoprazole Sodium 40 MG Tablet PO (09:25)
[2024-04-15] MEDS: DULoxetine Hcl 60 MG Capsule PO (09:25)
[2024-04-15] MEDS: Tamsulosin HCl 0.4 MG Capsule PO (09:25)
[2024-04-15] MEDS: Ferrous Sulfate 325 MG Tablet PO (12:41)
[2024-04-15] MEDS: Furosemide 20 MG/2 ML VIAL IV (12:41)
--- NOTE | 2024-04-15 13:00 | PCM.PN.INT ---
Assessment & Plan Assessment/Plan (1) Chronic respiratory failure with hypoxia: PLAN: Plan RECOMMENDATIONS: 1. Continue supplemental oxygen as tolerated. 2. Perform walking oximetry study prior to consideration for discharge home. 3. Transition from IV steroids to prednisone 40 mg daily to complete a 5-day burst. 4. Follow-up with the pulmonary medicine clinic on April 22, as scheduled. Please call with any additional questions. IMPRESSIONS: 1. Acute on chronic hypoxemic respiratory failure The patient has a known history of severe restrictive ventilatory mechanics with reduction in DLCO with radiographic evidence concerning for UIP. There has been interval worsening in his PFTs from October to March. Based upon his recent 6-minute walk test, the patient requires 4 L/min of oxygen at rest and 6 L/min with exertion. He was admitted to the hospital with worsening dyspnea and hypoxemia. He was placed on empiric antibiotics, steroids and diuretics. The patient has improved clinically over the last 24 hours. However, his creatinine has increased. Therefore, recommend discontinuation of Lasix. In addition, I have a low index of suspicion for underlying pulmonary infection. Therefore, antimicrobials can be discontinued from my perspective. Given the degree of his hypoxemia, limited echocardiogram was obtained, which ruled out cardiac level shunt. Ultimately, the patient needs to follow-up in the pulmonary medicine clinic, as scheduled on April 22. He does not require referral to rheumatology, given his negative CCP antibody titer. I would, however, consider the initiation of nintedanib for chronic fibrosing interstitial lung disease, given the patient's worsening pulmonary function studies and degree of hypoxemia. 2. History of obstructive sleep apnea/heart failure with preserved ejection fraction/hypothyroidism/GERD/anemia/obesity Complicates care, management, recovery and prognosis. Continue home medications as indicated. Recommend continuing nocturnal PAP therapy per home regimen. This note was generated with [employer] dictation software. It may contain incorrect words, spelling, and punctuation that were not noted in checking the note before signing. Subjective Subjective The patient was seen and examined at the bedside this morning. Events from the last 24 hours have been reviewed. The patient is currently afebrile, hemodynamically stable and maintaining appropriate oxygen saturations on 4 L/min via nasal cannula. Limited echocardiogram completed yesterday ruled out a cardiac level shunt. White blood cell count remains normal. Hemoglobin and platelet count are stable. Creatinine has normalized. Objective Data Objective Data The patient's most recent lab work, culture data and imaging studies have all been personally reviewed. Vital Signs: Vital Signs Temp Pulse Resp BP Pulse Ox O2 Del Method O2 Flow Rate 97.8 F 90 18 159/64 H 95 Nasal Cannula 4 04/15/24 09:10 04/15/24 09:25 04/15/24 09:10 04/15/24 09:25 04/15/24 09:10 04/15/24 09:10 04/15/24 09:10 FiO2 91 04/13/24 20:00 Oxygen Flow Rate (L/min) 4 Oxygen Delivery Method Nasal Cannula Weight: 301 lb 13.005 oz Body Mass Index (BMI) 44.5 Intake & Output: Intake and Output for Last 24 Hours 04/13/24 04/14/24 04/15/24 23:59 23:59 23:59 Intake Total 956.88 / 1106.88 1520 / 1520 680 / 680 Output Total 3650 / 3950 2900 / 2900 1550 / 1550 Balance -2693.12 / -2843.12 -1380 / -1380 -870 / -870 Lab / Micro Data Attestation: I reviewed the patient's lab results. 04/15/24 06:31 04/15/24 06:31 Labs: Laboratory Results - last 24 hr 04/14/24 03:45: Procalcitonin 0.18 H 04/14/24 21:15: POC Glucose 259 H 04/15/24 06:31: WBC 11.0, RBC 3.90 L, Hgb 8.5 L, Hct 28.9 L, MCV 74.1 L, MCH 21.8 L, MCHC 29.4 L, RDW Std Deviation 52.3 H, RDW Coeff of Gavi 19.6 H, Plt Count 341, MPV 9.8, Immature Gran % (Auto) 0.600, Neut % (Auto) 89.8 H, Lymph % (Auto) 7.0 L, [place] % (Auto) 2.4, Eos % (Auto) 0.1, Baso % (Auto) 0.1, Absolute Neuts (auto) 9.9 H, Absolute Lymphs (auto) 0.77 L, Nucleated RBC % 0, Sodium 135 L, Potassium 4.4, Chloride 103, Carbon Dioxide 24.0, Anion Gap 8, BUN 34 H, Creatinine 1.14, Estim Creat Clear Calc 94.72, Est GFR (MDRD) Af Amer 84, Est GFR (MDRD) Non-Af 70, BUN/Creatinine Ratio 29.8 H, Glucose 154 H, Calcium 9.4 Micro: Microbiology 04/12/24 13:17 Blood Culture (Wb) - Venous Bacteria Detection (PCR) - Final 04/12/24 13:17 Blood Culture (Wb) - Venous Blood Culture - Final Presumptive Micrococcus spp. 04/14/24 20:14 Nasal Secretion MRSA (PCR) - Final 04/14/24 20:14 Urine, Random Streptococcus pneumoniae Antigen (M - Final 04/12/24 13:57 Blood Culture (Wb) - Right Forearm Blood Culture - Preliminary No growth in 48 hours. 04/13/24 16:00 Urine, Clean Catch Legionella Antigen - Final 04/13/24 14:50 Mucosa - Nasopharyngeal Respiratory Panel (PCR) - Final 04/12/24 12:08 Mucosa - Nose SARS-CoV-2, Influenza & RSV (PCR) - Final Radiography Diagnostic Testing: Radiology Impression Echocardiogram 04/14/24 11:56 Interpretation Summary Bubble contrast study is negative for PFO/ASD. Normal LV size. Left ventricular systolic function is normal. The left ventricular ejection fraction is 60 %. There is mild to moderate mitral annular calcification. Mild concentric left ventricular hypertrophy. Ordering Physician: Fran Rodriguez Referring Physician: Radha Khan M.D. Performed By: Trinidad Johnson RDCS Physical Exam Const alert and no apparent distress Constitutional Narrative: Morbidly obese. Sitting in bedside recliner. General Appearance: cooperative HEENT normocephalic, head/scalp atraumatic and moist oral mucous membranes Eyes PERRL, EOMs intact bilaterally and conjunctivae normal Neck supple General: trachea midline Chest inspection of chest normal Resp normal respiratory effort Auscultation: rales and diminished lung sounds Cardio regular rate and regular rhythm GI normal to inspection, nondistended, normoactive bowel sounds Extremity no clubbing, cyanosis or edema Skin no rashes or lesions noted Neuro CN's II-XII intact bilaterally, moves all extremities and no focal motor deficits Psych cooperative and affect normal Charges/Coding Visit Charges Inpatient E&M: 53686 Subs Hosp L2
[2024-04-15] MEDS: oxyCODONE 5 MG Tablet PO (14:52)
[2024-04-15] MEDS: Acetaminophen 325 MG Tablet 650 MG PO (14:52)
--- NOTE | 2024-04-15 15:20 | DCINST_ITS ---
Discharge Instructions Diet Discharge Diet: No restrictions DC O2, CPAP, BIPAP needs RN Home O2 Qualification: Home O2 Qualification: Is the patient on home oxygen Yes 04/15/24 14:36 Home O2 Qualification: AT REST 1-Pulse Ox at rest 93 04/15/24 14:36 1- Oxygen flow rate at rest 4 04/15/24 14:36 Home O2 Qualification: WITH AMBULATION 1- Pulse Ox with ambulation 83 04/15/24 14:36 1- Oxygen Flow Rate with 6 04/15/24 14:36 ambulation 2- Pulse Ox with ambulation 85 04/15/24 14:36 2- Oxygen Flow Rate with 8 04/15/24 14:36 ambulation 3- Pulse Ox with ambulation 89 04/15/24 14:36 3- Oxygen Flow Rate with 8 04/15/24 14:36 ambulation 3- Stopped test - Unable to Yes 04/15/24 14:36 obtain pulse ox >89% w/ max oxyg Home O2 Qualification: AT REST 1- Pulse Ox at rest 70 04/14/24 10:32 2- Pulse Ox at rest 94 04/14/24 10:32 2- Oxygen Flow Rate at rest 3 04/14/24 10:32 Home O2 Qualification: WITH AMBULATION 1- Pulse Ox with ambulation 77 04/14/24 10:32 1- Oxygen Flow Rate with 3 04/14/24 10:32 ambulation 2- Pulse Ox with ambulation 90 04/14/24 10:32 2- Oxygen Flow Rate with 6 04/14/24 10:32 ambulation Home O2 Discharge instructions: Yes Type of respiratory needs?: Oxygen Oxygen frequency: Continuous (4) Continuous oxygen liters per minute: 4 L and With Ambulation (6-8) Oxygen liters per minute during Ambulation: 4 Dressing / Incision Discharge Activity: Return to Normal Activity Weight Bearing Status: Weight bearing as tolerated Dressing / Incision Call your doctor if you observe: Fever of 101 or Higher, Coldness, Increased Pain, Numbness or Tingling, Change in Color, Inability to urinate, Inability to have a bowel movement, Shortness of breath, Dizziness, Fainting spells, Swelling in the ankles, Chest pain, Prolonged hiccupping, Increased palpitations (irregular heartbeat) and Calf discomfort Follow Up Care When: IN 2 WEEKS Test Results: Test results from this visit will be discussed in further detail at your follow- up appointment, if applicable. Discharge Plan Admission Admit Date/Time: 04/12/24 13:25 Primary Reason for Your Visit: Acute on chronic hypoxic aspiratory failure du Attending Provider: Cuco Soler Primary Care Provider: Radha Khan Consulting Providers: Eduin Ospina; Rafael Marc; Andrea Murphy; Jonathon Salas; Fran Rodriguez; Eduin Swain; Aidan Cornell; Brandon Cain; Catalina Dolan; John Jones; Conor Palafox; Juan Diego Santoro; Shameka Garcia; Shobha Larios; Brennan Valentine; Mane Gatica; Nikolai Montemayor; Parish Viveros; Cecile Queen; Abdirahman Pal; Thang Garcia; Eric Bosch; David Leonard Discharge Orders/Prescriptions Prescriptions: New dextromethorphan-guaifenesin 60-1,200 mg tablet extended release 12 hr 1 tab PO BID 7 Days Qty: 14 0RF prednisone 20 mg tablet 40 mg PO DAILY 5 Days Qty: 10 0RF Continued (DME) Dexcom G6 [facility] See Rx Instructions .ROUTE .MEDSUPPLY Qty: 1 0RF Rx Instructions: As directed (DME) pen needle, diabetic 31 gauge x 5/16 needle See Rx Instructions .ROUTE .MEDSUPPLY Qty: 1200 Patient Comments: use 1 PEN NEEDLE to inject MEDICATION subcutaneously as directed Rx Instructions: As directed (DME) pen needle, diabetic [BD Ultra-Fine Kiki Pen Needle] 32 gauge x 5/32 needle See Rx Instructions .ROUTE .MEDSUPPLY Qty: 150 6RF Rx Instructions: As directed (DME) infusion set for insulin pump Infusion Set See Rx Instructions .Route Rx Instructions: As directed (DME) insulin pump controller Misc See Rx Instructions .Route Rx Instructions: As directed Jardiance 25 mg tablet 25 mg PO DAILY Qty: 30 5RF aspirin 325 mg tablet 325 mg PO DAILY Patient Comments: coated clopidogrel [Plavix] 75 mg tablet 75 mg PO DAILY 21 Days Qty: 30 11RF fenofibrate 54 mg tablet 54 mg PO DAILY Qty: 30 6RF amlodipine 5 mg tablet 5 mg PO QDAY glimepiride 4 mg tablet 4 mg PO QAM Rx Instructions: administer with breakfast levothyroxine 125 mcg tablet 125 mcg PO DAILY tamsulosin 0.4 MG capsule 0.4 mg PO DAILY buspirone 10 MG tablet 10 mg PO TID Rx Instructions: pt states he usually takes 1 daily duloxetine [Cymbalta] 60 MG capsule,delayed release(DR/EC) 60 mg PO DAILY atorvastatin [Lipitor] 80 MG tablet 80 mg PO QHS Rx Instructions: cholesterol hydrocodone-acetaminophen 5-325 mg tablet 1 tab PO BID PRN (Reason: pain) ferrous sulfate [Feosol] 325 mg (65 mg iron) tablet 325 mg PO DAILY pantoprazole [Protonix] 40 mg tablet,delayed release (DR/EC) 40 mg PO DAILY lisinopril 40 mg tablet 40 mg PO DAILY spironolactone 50 mg tablet 50 mg PO DAILY (DME) Dexcom G6 Transmitter Device See Rx Instructions .ROUTE .MEDSUPPLY Qty: 1 3RF Rx Instructions: As directed (DME) Dexcom G6 Sensor Device See Rx Instructions .ROUTE .MEDSUPPLY Qty: 1 6RF Rx Instructions: As directed Eliquis 5 mg tablet 5 mg PO BID Qty: 180 3RF Humulin R U-500 (Conc) Insulin 500 unit/mL solution 75 unit continuous subcutaneous infusion DAILY Qty: 20 5RF Patient Comments: INSULIN PUMP albuterol sulfate [Ventolin HFA] 90 mcg/actuation HFA aerosol inhaler 2 puff inhalation Q4H PRN (Reason: shortness of breath or wheezing) Qty: 18 6RF metoprolol succinate 100 mg tablet extended release 24 hr 100 mg PO DAILY Qty: 90 3RF bismuth subsalicylate 262 mg tablet,chewable 2 tab PO TID 14 Days Qty: 84 0RF Rx Instructions: do not exceed 16 tabs per 24 hrs Changed furosemide [Lasix] 40 mg tablet 40 mg PO DAILY Qty: 180 3RF Rx Instructions: Take extra 40 mg dose at 5 PM for increased leg swelling or weight gain 5 p ounds in 1 week. Discontinued amoxicillin 500 mg capsule 500 mg PO BID 14 Days Qty: 28 0RF Patient Comments: Taking twice daily until 04/18/24 clarithromycin 500 mg tablet 500 mg PO BID 14 Days Qty: 28 0RF Patient Comments: Taking twice daily until 04/18/24 metronidazole 500 mg tablet 500 mg PO BID 14 Days Qty: 28 0RF Patient Comments: Taking twice daily until 04/18/24 Referrals / Follow Up: Radha Khan MD [Primary Care Provider] - Fran Rodriguez DO [Med Staff - Active Staff] - See Referral Note (Please follow-up on April 22, 2024 as scheduled) Disposition Disposition (needs filled in before D/C Order can be placed): Home, Self Care
--- NOTE | 2024-04-15 15:28 | PCM.DC.SUM ---
Providers Date of Admission: 04/12/24 Date of Discharge: 04/15/24 Primary Care Physician: Dr. Radha Khan MD Consultations 04/13/24 16:18 Consult: In Flight Refueling System Repairer / Pulmonary Medicine Routine Consulting Provider: Intensivists/Pulmonary Med Reason for Consult: acute on chr resp failure EMERGENT Consult: No MD Notified: Yes Date Notified: 04/13/24 Time Notified: 16:18 Method of Notification: Text Reason For Visit: CHF Diagnosis Discharge Diagnosis (1) Chronic respiratory failure with hypoxia: Status: Resolved Code(s): J96.11 - Chronic respiratory failure with hypoxia Plan Patient is a 58-year-old gentleman presenting with progressive shortness of breath diagnosed with acute congestive heart failure 1. Acute on chronic hypoxic respiratory failure due to and CHF exacerbation ? Secondary to congestive heart failure with acute exacerbation. Patient has been admitted to a monitored bed with treatment of the underlying condition please on supplemental oxygen titrated to keep 04/13: Chest x-ray initially reviewed shows new infiltrate on the right middle and lower lobe. Cardiomegaly. VBG 7.43/mixed pCO2 34.8. Pneumonia workup ordered. Patient started on IV Zosyn. Triple PCR for SARS-CoV-2, flu and RSV are negative. MRSA nasal screen and respiratory panel ordered. DuoNeb, incentive spirometry and PEP ordered. On Mucinex DM. CT chest without contrast was ordered which shows bilateral groundglass appearance especially his right middle lobe with progression. Stable scarring with bronchiectasis in the upper lobes. Multiple small lymph nodes in the mediastinum compatible with reactive lymphatic hyperplasia. Recent pulmonary exercise test shows 4 L of supplemental oxygen at rest and 6 L on exertion. Started on IV Solu-Medrol. Patient on IV Lasix. Pulmonary consult requested 04/14: Pulmonary consult reviewed and appreciated. Limited echo negative for PFO/ASD. IV antibiotic discontinued as pneumonia ruled out. Patient is still very dyspneic on home oxygen qualification on ambulation therefore discharge plan was canceled. Continue IV Solu-Medrol. 04/15: Pulmonary follow-up reviewed and appreciated. Discussed with the v belt curer. 20 mg IV Lasix given and home Lasix resumed. Dose was decreased as patient had SUPA. Patient baseline requirement is 4 L of oxygen at rest and 6 L with exertion. Discharged on prednisone burst therapy 40 mg daily for 5 days. Patient has follow-up on April 02 in pulmonary clinic. 2. Acute on chronic congestive heart failure with preserved ejection fraction ? Patient has been admitted to a monitored bed managed with strict input and output, daily weight, fluid restriction, IV Lasix. 2D echo obtained on 03/02/2024 demonstrated EF of 60% 04/15: Lasix resumed. Acute heart failure resolved. 3. Paroxysmal atrial fibrillation ? Rate controlled on metoprolol, on systemic anticoagulation apixaban 4. Hypertension - Blood pressure controlled, home medications continued with dose adjustment as needed 5. Dyslipidemia -Patient is on statin therapy, continued at home dose 6. Hypothyroidism - Patient is on levothyroxine home dose continued 7. Depression with anxiety ? Did continue home meds 8. Class III obesity ? Complicating care; Weight loss advised 9. Obstructive sleep apnea ? Patient is on BiPAP at night 10. Hodgkin's lymphoma ? Currently in remission 11. Interstitial lung disease ? Patient is followed by Dr. Rodriguez with pulmonary medicine as outpatient 12. Diabetes mellitus type 2 ? Patient is on insulin pump patient to manage his home home also 13. Anemia ? Secondary to chronic disorder. Patient underwent EGD and colonoscopy on 03/27/2024 he was found to have a single bleeding colonic angiodysplastic lesion treated with a monopolar probe. He was also found to have polyps in the ascending colon and hepatic flexure removed with hot snare. Monitoring H&H and transfuse if patient becomes symptomatic or hemoglobin falls below 7 14. History of previous CVA ? Patient is on dual antiplatelet therapy with aspirin and Plavix as well as systemic anticoagulation with apixaban for his paroxysmal A-fib 15.DVT prophylaxis - On on apixaban Discharge medication reconciliation done. Discharge follow-up instructions completed. Discharge process discussed with the patient and all questions were answered to patient's satisfaction. Follow with PCP in 1 to 2 weeks Total time spent, exact 35 minutes on discharge meds reconciliation, examination, coordination of care with nurses and ancillary staff, review of imaging and blood test and discussion with the patient on follow-up instructions. Advance planning; did discuss with the patient and family regarding advanced directives as well as CODE STATUS. Did explain the various scenarios involved ( FULL CODE, DNR CCA, DNR CCA with no intubation, and DNR CC and what each meant) patient elected to be DNR CCA no intubation. Order was placed. Time spent on discussion 16 minutes. Medications at Discharge Home Medications tamsulosin 0.4 mg capsule 0.4 mg PO DAILY prostate 09/08/15 buspirone 10 mg tablet 10 mg PO TID Anxiety 04/17/18 duloxetine 60 mg capsule,delayed release (Cymbalta) 60 mg PO DAILY depression 04/17/18 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 meter,continuous (Dexcom G6 Behavioral Science Chair) #1 ea 07/26/20 pen needle, diabetic 31 gauge x 5/16 #1,200 ea 12/22/20 pen needle, diabetic 32 gauge x 5/32 (BD Ultra-Fine Kiki Pen Needle) #150 ea 06/01/21 atorvastatin 80 mg tablet (Lipitor) 80 mg PO QHS cholesterol 09/04/21 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 transmitter (Dexcom G6 Transmitter device) #1 ea 12/29/21 infusion set for insulin pump 10/08/22 insulin pump controller 10/08/22 hydrocodone-acetaminophen 5-325mg 5mg-325mg 1 tab PO BID PRN pain 02/14/23 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 sensor (Dexcom G6 Sensor device) #1 ea 02/25/23 apixaban 5 mg tablet (Eliquis) 5 mg PO BID blood thinner #180 tabs 07/21/23 insulin regular hum U-500 conc 500 unit/mL subcutaneous soln (Humulin R U-500 (Concentrated) Insulin) 75 unit (0.15 mL) continuous subcutaneous infusion DAILY blood sugar #20 mL 11/11/23 empagliflozin 25 mg tablet (Jardiance) 25 mg PO DAILY diabetes #30 tabs 11/27/23 clopidogrel 75 mg tablet (Plavix) 75 mg PO DAILY anti platelet 21 days #30 tabs 12/06/23 albuterol sulfate 90 mcg/actuation aerosol inhaler (Ventolin HFA) 2 puff inhalation Q4H PRN shortness of breath or wheezing #18 grams 02/06/24 fenofibrate 54 mg tablet 54 mg PO DAILY cholesterol #30 tabs 02/23/24 ferrous sulfate 325 mg (65 mg iron) tablet (Feosol) 325 mg PO DAILY anemia 03/02/24 amlodipine 5 mg tablet 5 mg PO QDAY blood pressure 03/13/24 aspirin 325 mg tablet 325 mg PO DAILY heart health 03/13/24 glimepiride 4 mg tablet 4 mg PO QAM 03/13/24 levothyroxine 125 mcg tablet 125 mcg PO DAILY thyroid 03/13/24 metoprolol succinate 100 mg tablet,extended release 24 hr 100 mg PO DAILY heart #90 tabs 03/27/24 bismuth subsalicylate 262 mg chewable tablet 2 tab PO TID H. Pylori 2 weeks #84 tabs 04/02/24 lisinopril 40 mg tablet 40 mg PO DAILY 04/12/24 pantoprazole 40 mg tablet,delayed release (Protonix) 40 mg PO DAILY acid reflux 04/12/24 spironolactone 50 mg tablet 50 mg PO DAILY 04/12/24 dextromethorphan-guaifenesin ER 60 mg-1,200 mg tab,extend release,12hr 1 tab PO BID 7 days #14 tabs 04/15/24 furosemide 40 mg tablet (Lasix) 40 mg PO DAILY diuretic #180 tabs 04/15/24 prednisone 20 mg tablet 40 mg (2 x 20 mg) PO DAILY 5 days #10 tabs 04/15/24 Physical Exam Narrative Seen and examined. Patient currently on 4 L of O2 at rest and 6-8 L with exertion. Unfortunately patient has advanced UIP/burnout pulmonary tissue. Dyspnea on exertion, gets short of breath on walking and has to stop. No chest pain. No cough or sputum production. No fever. Has interstitial lung disease Physical exam General: Alert, Oriented x3, Cooperative HEENT: Atraumatic, PERRLA, EOMI, Normocephalic Oral: No Gingival or Mucosal Lesions/ Ulcerations Neck: Supple, No JVD, Negative Carotid Bruits Chest wall/Lungs: Air entry diminished in bilateral lungs. Bilateral inspiratory rales better. Hypoxia. Cardiovascular: Regular rate, Regular Rhythm, Normal S1, Normal S2, No M/G/R Abdomen: Bowel Sounds Present, Soft, Non Tender, Non-Distended : No dysuria. No renal angle tenderness. No suprapubic tenderness. Extremities: Mild edema, Capillary Refill Less than 3 Seconds Skin: No rashes, No breakdown Musculoskeletal: No Tenderness to Palpation of Joints or Extremities Neurological: Cranial nerves II-XII grossly intact, DTR 2+/4. No acute focal neurological deficit. Psych/Mental Status: Flat affect Weight / BMI Weight Weight: 301 lb 13.005 oz Body Mass Index (BMI) 44.5 ABG / Lab / Microbiology Data 04/15/24 06:31 04/15/24 06:31 Laboratory: Laboratory Results - last 24 hr 04/14/24 21:15: POC Glucose 259 H 04/15/24 06:31: WBC 11.0, RBC 3.90 L, Hgb 8.5 L, Hct 28.9 L, MCV 74.1 L, MCH 21.8 L, MCHC 29.4 L, RDW Std Deviation 52.3 H, RDW Coeff of Gavi 19.6 H, Plt Count 341, MPV 9.8, Immature Gran % (Auto) 0.600, Neut % (Auto) 89.8 H, Lymph % (Auto) 7.0 L, [place] % (Auto) 2.4, Eos % (Auto) 0.1, Baso % (Auto) 0.1, Absolute Neuts (auto) 9.9 H, Absolute Lymphs (auto) 0.77 L, Nucleated RBC % 0, Sodium 135 L, Potassium 4.4, Chloride 103, Carbon Dioxide 24.0, Anion Gap 8, BUN 34 H, Creatinine 1.14, Estim Creat Clear Calc 94.72, Est GFR (MDRD) Af Amer 84, Est GFR (MDRD) Non-Af 70, BUN/Creatinine Ratio 29.8 H, Glucose 154 H, Calcium 9.4 Microbiology: Microbiology 04/12/24 13:17 Blood Culture (Wb) - Venous Bacteria Detection (PCR) - Final 04/12/24 13:17 Blood Culture (Wb) - Venous Blood Culture - Final Presumptive Micrococcus spp. 04/14/24 20:14 Nasal Secretion MRSA (PCR) - Final 04/14/24 20:14 Urine, Random Streptococcus pneumoniae Antigen (M - Final 04/12/24 13:57 Blood Culture (Wb) - Right Forearm Blood Culture - Preliminary No growth in 48 hours. 04/13/24 16:00 Urine, Clean Catch Legionella Antigen - Final 04/13/24 14:50 Mucosa - Nasopharyngeal Respiratory Panel (PCR) - Final 04/12/24 12:08 Mucosa - Nose SARS-CoV-2, Influenza & RSV (PCR) - Final D/C Instructions Discharge Diet: No restrictions Weight Bearing Status: Weight bearing as tolerated Call your doctor if you observe: Fever of 101 or Higher, Coldness, Increased Pain, Numbness or Tingling, Change in Color, Inability to urinate, Inability to have a bowel movement, Shortness of breath, Dizziness, Fainting spells, Swelling in the ankles, Chest pain, Prolonged hiccupping, Increased palpitations (irregular heartbeat) and Calf discomfort DC O2, CPAP, BIPAP Needs RN Home O2 Qualification: Home O2 Qualification: Is the patient on home oxygen Yes 04/15/24 14:36 Home O2 Qualification: AT REST 1-Pulse Ox at rest 93 04/15/24 14:36 1- Oxygen flow rate at rest 4 04/15/24 14:36 Home O2 Qualification: WITH AMBULATION 1- Pulse Ox with ambulation 83 04/15/24 14:36 1- Oxygen Flow Rate with 6 04/15/24 14:36 ambulation 2- Pulse Ox with ambulation 85 04/15/24 14:36 2- Oxygen Flow Rate with 8 04/15/24 14:36 ambulation 3- Pulse Ox with ambulation 89 04/15/24 14:36 3- Oxygen Flow Rate with 8 04/15/24 14:36 ambulation 3- Stopped test - Unable to Yes 04/15/24 14:36 obtain pulse ox >89% w/ max oxyg Home O2 Qualification: AT REST 1- Pulse Ox at rest 70 04/14/24 10:32 2- Pulse Ox at rest 94 04/14/24 10:32 2- Oxygen Flow Rate at rest 3 04/14/24 10:32 Home O2 Qualification: WITH AMBULATION 1- Pulse Ox with ambulation 77 04/14/24 10:32 1- Oxygen Flow Rate with 3 04/14/24 10:32 ambulation 2- Pulse Ox with ambulation 90 04/14/24 10:32 2- Oxygen Flow Rate with 6 04/14/24 10:32 ambulation PSN CPAP & BiPAP: BiPAP & CPAP Settings per PSN Fraction of Inspired Oxygen ( 91 04/13/24 20:00 FIO2) Home O2 Discharge instructions: Yes Type of respiratory needs?: Oxygen Oxygen frequency: Continuous (4) Continuous oxygen liters per minute: 4 L and With Ambulation (6-8) Oxygen liters per minute during Ambulation: 4 DC home with Oxygen: Yes Home O2 MD Review: I have reviewed the oxygen testing, and the patient qualifies for home oxygen equipment and portability. The patient is mobile in the home and the community. When: IN 2 WEEKS Meaningful Use Info Meaningful Use Meaningful Use Diagnoses (Choose all that apply): None applicable Ischemic Stroke Statin Dosing Therapy Reference: STATIN DOSE THERAPY REFERENCE: * Patients > 75 years receive moderate or high dose statin therapy. * Patients 75 years or YOUNGER should receive HIGH intensity statin dose unless contraindicated. You will be required to document reason for non-treatment if statin daily dose does not meet guidelines. HIGH DOSE STATIN THERAPY DAILY Atorvastatin > than or = to 40 mg Rosuvastatin > than or = to 20 mg Amlodipine + Atorvastatin > than or = to 2.5/40 mg Ezetimibe + Simvastatin 10/80 mg Simvastatin 80mg Discharge Plan Admission Admit Date/Time: 04/12/24 13:25 Primary Reason for Your Visit: Acute on chronic hypoxic aspiratory failure du Attending Provider: Cuco Soler Primary Care Provider: Radha Khan Consulting Providers: Eduin Ospina; Rafael Marc; Andrea Murphy; Jonathon Salas; Fran Rodriguez; Eduin Swain; Aidan Cornell; Brandon Cain; Catalina Dolan; John Jones; Conor Palafox; Juan Diego Santoro; Shameka Garcia; Shobha Larios; Brennan Valentine; Mane Gatica; Nikolai Montemayor; Parish Viveros; Cecile Queen; Abdiarhman Pal; Thang Garcia; Eric Bosch; David Leonard Discharge Orders/Prescriptions Prescriptions: New dextromethorphan-guaifenesin 60-1,200 mg tablet extended release 12 hr 1 tab PO BID 7 Days Qty: 14 0RF prednisone 20 mg tablet 40 mg PO DAILY 5 Days Qty: 10 0RF Continued (DME) Dexcom G6 Behavioral Science Chair Misc See Rx Instructions .ROUTE .MEDSUPPLY Qty: 1 0RF Rx Instructions: As directed (DME) pen needle, diabetic 31 gauge x 5/16 needle See Rx Instructions .ROUTE .MEDSUPPLY Qty: 1200 Patient Comments: use 1 PEN NEEDLE to inject MEDICATION subcutaneously as directed Rx Instructions: As directed (DME) pen needle, diabetic [BD Ultra-Fine Kiki Pen Needle] 32 gauge x 5/32 needle See Rx Instructions .ROUTE .MEDSUPPLY Qty: 150 6RF Rx Instructions: As directed (DME) infusion set for insulin pump Infusion Set See Rx Instructions .Route Rx Instructions: As directed (DME) insulin pump controller Misc See Rx Instructions .Route Rx Instructions: As directed Jardiance 25 mg tablet 25 mg PO DAILY Qty: 30 5RF aspirin 325 mg tablet 325 mg PO DAILY Patient Comments: coated clopidogrel [Plavix] 75 mg tablet 75 mg PO DAILY 21 Days Qty: 30 11RF fenofibrate 54 mg tablet 54 mg PO DAILY Qty: 30 6RF amlodipine 5 mg tablet 5 mg PO QDAY glimepiride 4 mg tablet 4 mg PO QAM Rx Instructions: administer with breakfast levothyroxine 125 mcg tablet 125 mcg PO DAILY tamsulosin 0.4 MG capsule 0.4 mg PO DAILY buspirone 10 MG tablet 10 mg PO TID Rx Instructions: pt states he usually takes 1 daily duloxetine [Cymbalta] 60 MG capsule,delayed release(DR/EC) 60 mg PO DAILY atorvastatin [Lipitor] 80 MG tablet 80 mg PO QHS Rx Instructions: cholesterol hydrocodone-acetaminophen 5-325 mg tablet 1 tab PO BID PRN (Reason: pain) ferrous sulfate [Feosol] 325 mg (65 mg iron) tablet 325 mg PO DAILY pantoprazole [Protonix] 40 mg tablet,delayed release (DR/EC) 40 mg PO DAILY lisinopril 40 mg tablet 40 mg PO DAILY spironolactone 50 mg tablet 50 mg PO DAILY (DME) Dexcom G6 Transmitter Device See Rx Instructions .ROUTE .MEDSUPPLY Qty: 1 3RF Rx Instructions: As directed ([facility] [place] Dexcom G6 Sensor Device See Rx Instructions .ROUTE .MEDSUPPLY Qty: 1 6RF Rx Instructions: As directed Eliquis 5 mg tablet 5 mg PO BID Qty: 180 3RF Humulin R U-500 (Conc) Insulin 500 unit/mL solution 75 unit continuous subcutaneous infusion DAILY Qty: 20 5RF Patient Comments: INSULIN PUMP albuterol sulfate [Ventolin HFA] 90 mcg/actuation HFA aerosol inhaler 2 puff inhalation Q4H PRN (Reason: shortness of breath or wheezing) Qty: 18 6RF metoprolol succinate 100 mg tablet extended release 24 hr 100 mg PO DAILY Qty: 90 3RF bismuth subsalicylate 262 mg tablet,chewable 2 tab PO TID 14 Days Qty: 84 0RF Rx Instructions: do not exceed 16 tabs per 24 hrs Changed furosemide [Lasix] 40 mg tablet 40 mg PO DAILY Qty: 180 3RF Rx Instructions: Take extra 40 mg dose at 5 PM for increased leg swelling or weight gain 5 pounds in 1 week. Discontinued amoxicillin 500 mg capsule 500 mg PO BID 14 Days Qty: 28 0RF Patient Comments: Taking twice daily until 04/18/24 clarithromycin 500 mg tablet 500 mg PO BID 14 Days Qty: 28 0RF Patient Comments: Taking twice daily until 04/18/24 metronidazole 500 mg tablet 500 mg PO BID 14 Days Qty: 28 0RF Patient Comments: Taking twice daily until 04/18/24 Referrals / Follow Up: Radha Khan MD [Primary Care Provider] - Fran Rodriguez DO [Med Staff - Active Staff] - See Referral Note (Please follow-up on April 22, 2024 as scheduled) Disposition Disposition (needs filled in before D/C Order can be placed): Home, Self Care Charges/Coding Visit Charges Inpatient E&M: 07053 Disch Hosp >30min
--- NOTE | 2024-04-15 16:08 | CASEMGMT ---
Patient has order for discharge. Patient qualifies for home oxygen, script received and referral sent to [facility] [place] [facility] via [employer], tank arranged to be delivered to patient's room. Order received for palliative consult. Palliative screening tool completed and referral sent to [facility]. CAMILA CM in to discuss discharge with patient. Patient updated regarding oxygen setup and palliative consult. Patient denied further needs or concerns. Patient had no further questions. CAMILA LUCERO updated discharge plan.
== END 2024-04-15 17:00 | disposition home or self-care (01) | DRG 291 ==
LOC: ED 13:30 → PCU 13:40
PROVIDERS: Internal Medicine Critical Care Medicine; Admitting Provider Internal Medicine; Emergency Provider Emergency Medicine; PCP Family Medicine; Referring Provider Emergency Medicine; Visit Provider Internal Medicine
DX: I13.0 Hypertensive heart and chronic kidney disease with heart failure and stage 1 through stage 4 chronic kidney disease, or unspecified chronic kidney disease (principal); I50.33 Acute on chronic diastolic (congestive) heart failure; J96.21 Acute and chronic respiratory failure with hypoxia; C81.9A Hodgkin lymphoma, unspecified, in remission; J84.9 Interstitial pulmonary disease, unspecified; D50.0 Iron deficiency anemia secondary to blood loss (chronic); E03.9 Hypothyroidism, unspecified; K21.9 Gastro-esophageal reflux disease without esophagitis; Z66 Do not resuscitate; E11.22 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 with diabetic chronic kidney disease; N18.9 Chronic kidney disease, unspecified; J47.9 Bronchiectasis, uncomplicated; E66.813 Obesity, class 3; I48.0 Paroxysmal atrial fibrillation; F41.8 Other specified anxiety disorders; G47.33 Obstructive sleep apnea (adult) (pediatric); Z79.4 Long term (current) use of insulin; I25.10 Atherosclerotic heart disease of native coronary artery without angina pectoris; E11.42 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 with diabetic polyneuropathy; E78.5 Hyperlipidemia, unspecified; K63.5 Polyp of colon; Z79.01 Long term (current) use of anticoagulants; Z82.3 Family history of stroke; Z86.73 Personal history of transient ischemic attack (TIA), and cerebral infarction without residual deficits; Z11.52 Encounter for screening for COVID-19; Z79.84 Long term (current) use of oral hypoglycemic drugs; Z79.02 Long term (current) use of antithrombotics/antiplatelets; Z79.2 Long term (current) use of antibiotics; Z79.890 Hormone replacement therapy
CPT/HCPCS: 36415; 71045; 71250; 80048; 80076; 82803; 82962; 83735; 83880; 84100; 84145; 84484; 85025; 87040; 87149; 87449; 87631; 87633; 87641; 93005; 93308; 94640; 94668; 97802; 99252; 99285; A4216; G0463; J1940

== ENCOUNTER 2024-04-24 15:05 | Observation (INO) | payer OTHER, SELFPAY ==
[2024-04-24] VITALS (11 sets, daily range): BP systolic 88–167; BP diastolic 52–92; PULSE 69–88; RESP 18–25; TEMP 36.1–36.8; O2SAT 93–100; BMI 46.0; BMI 44.6
--- NOTE | 2024-04-24 15:15 | ED.RN ---
Per Dr. Mcneil no stroke alert to be called
--- NOTE | 2024-04-24 15:48 | EX.ED.DYSGE1 ---
HPI History of Present Illness Chief Complaint: Neuro S/Sx [facility] Medical History CHF (congestive heart failure) Chronic respiratory failure with hypoxia KIANNA (obstructive sleep apnea) Presence of insulin pump CKD (chronic kidney disease) Hypothyroidism Essential (primary) hypertension Diabetes Acute hypoxemic respiratory failure Chronic diastolic CHF (congestive heart failure) Obesity Exertional shortness of breath Iron deficiency anemia due to chronic blood loss Current use of mcc anticoagulation Morbid obesity with BMI of 45.0-49.9, adult Atherosclerotic heart disease of [place] coronary artery without angina pectoris Mini stroke (~10/01/23) Peripheral vestibulopathy Ischemic cerebrovascular accident (CVA) Cranial nerve disorder Polyneuropathy Wears glasses Depression Anxiety Cancer Thyroid disease Insulin dependent diabetes mellitus Arthritis History of renal disease Prostate disease Gastric reflux CPAP (continuous positive airway pressure) dependence Sleep apnea Shortness of breath on exertion History of echocardiogram History of stress test History of CHF (congestive heart failure) Cardiology follow-up encounter History of atrial fibrillation Neuropathy Multiple thyroid nodules Microalbuminuria Thyroid nodule Double vision Non-proliferative diabetic retinopathy KIANNA treated with BiPAP Vertigo Congestive heart failure (CHF) Low testosterone Carotid stenosis High cholesterol Vision loss of right eye Vision loss of left eye Anemia Non-smoker Atrial fibrillation Hypertension Paroxysmal atrial fibrillation Polyneuropathy due to type 2 diabetes mellitus History of non-ST elevation myocardial infarction (NSTEMI) (03/28/20) TIA (transient ischemic attack) (2018) Hodgkin disease GERD (gastroesophageal reflux disease) BPH (benign prostatic hyperplasia) Anxiety and depression Morbid obesity with BMI of 45.0-49.9, adult Nephrolithiasis Hyperlipidemia Diabetes mellitus, type II Home Medications ?Medication ?Instructions ?Recorded ?Last Taken ?Type tamsulosin 0.4 mg capsule 0.4 mg PO DAILY prostate 09/08/15 11/16/23 History buspirone 10 mg tablet 10 mg PO TID Anxiety 04/17/18 03/27/24 History duloxetine 60 mg capsule,delayed 60 mg PO DAILY depression 04/17/18 11/16/23 History release (Cymbalta) 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 meter,continuous #1 ea 07/26/20 Unknown Rx (Dexcom [employer]) pen needle, diabetic 31 gauge x #1,200 ea 12/22/20 Unknown History 08/14 pen needle, diabetic 32 gauge x #150 ea 06/01/21 Unknown Rx 5/32 (BD Ultra-Fine Kiki Pen Needle) atorvastatin 80 mg tablet (Lipitor) 80 mg PO QHS cholesterol 09/04/21 11/15/23 History 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 transmitter (Dexcom #1 ea 12/29/21 Unknown Rx G6 Transmitter device) infusion set for insulin pump 10/08/22 Unknown History insulin pump controller 10/08/22 Unknown History hydrocodone-acetaminophen 5-325mg 1 tab PO BID PRN pain 02/14/23 11/16/23 History 5mg-325mg 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 sensor (Dexcom G6 #1 ea 02/25/23 Unknown Rx Sensor device) apixaban 5 mg tablet (Eliquis) 5 mg PO BID blood thinner #180 tabs 07/21/23 03/24/24 Rx insulin regular hum U-500 conc 500 75 unit (0.15 mL) continuous 11/11/23 11/16/23 Rx unit/mL subcutaneous soln (Humulin subcutaneous infusion DAILY blood R U-500 (Concentrated) Insulin) sugar #20 mL empagliflozin 25 mg tablet 25 mg PO DAILY diabetes #30 tabs 11/27/23 Unknown Rx (Jardiance) clopidogrel 75 mg tablet (Plavix) 75 mg PO DAILY anti platelet 21 12/06/23 03/24/24 Rx days #30 tabs albuterol sulfate 90 mcg/actuation 2 puff inhalation Q4H PRN 02/06/24 Unknown Rx aerosol inhaler (Ventolin HFA) shortness of breath or wheezing #18 grams fenofibrate 54 mg tablet 54 mg PO DAILY cholesterol #30 tabs 02/23/24 Unknown Rx ferrous sulfate 325 mg (65 mg 325 mg PO DAILY anemia 03/02/24 Unknown History iron) tablet (Feosol) amlodipine 5 mg tablet 5 mg PO QDAY blood pressure 03/13/24 03/27/24 History aspirin 325 mg tablet 325 mg PO DAILY heart health 03/13/24 Unknown History glimepiride 4 mg tablet 4 mg PO QAM diabetes 03/13/24 Unknown History metoprolol succinate 100 mg 100 mg PO DAILY heart #90 tabs 03/27/24 Unknown Rx tablet,extended release 24 hr lisinopril 40 mg tablet 40 mg PO DAILY blood pressure 04/12/24 Unknown History pantoprazole 40 mg tablet,delayed 40 mg PO DAILY acid reflux 04/12/24 Unknown History release (Protonix) spironolactone 50 mg tablet 50 mg PO DAILY water pill 04/12/24 Unknown History prednisone 20 mg tablet 40 mg (2 x 20 mg) PO DAILY 5 days 04/15/24 Unknown Rx #10 tabs nintedanib 150 mg capsule (Ofev) 150 mg PO Q12H #60 caps 04/22/24 Unknown Rx dextromethorphan-guaifenesin ER 60 1 tab PO DAILY 04/24/24 Unknown History mg-1,200 mg tab,extend release,12hr furosemide 40 mg tablet (Lasix) 40 mg PO BID diuretic 04/24/24 Unknown History levothyroxine 112 mcg tablet 112 mcg PO DAILY 04/24/24 Unknown History Allergy/AdvReac Type Severity Reaction Status Date / Time metoclopramide HCl (From Allergy Severe Anaphylaxis Verified 04/24/24 15:07 Reglan) Family History Brother Heart disease Mother CVA (cerebral vascular accident) Hypertension Rheumatoid arthritis Father Diabetes Other Alcohol abuse ulcer disease Surgical History History of cardiac catheterization History of lymph node excision History of left heart catheterization (2009) Hx of nephrolithotomy with removal of calculi History of thoracentesis (2015) Social History household members: spouse and none Smoking Status: Never smoker Electronic Cigarette Use: not used second hand exposure: No alcohol intake: never substance use type: does not use what type of physical activity do you participate in: none EXAM Physical Exam Const Vital Signs: 04/24/24 15:07 04/24/24 16:06 04/24/24 16:19 Temperature 96.9 F L Temperature Source Temporal Pulse Rate 88 75 Respiratory Rate 25 H 18 Blood Pressure 88/52 L 102/55 L Blood Pressure Mean 64 70 Pulse Ox 97 98 Oxygen Delivery Method Nasal Cannula Nasal Cannula Room Air Oxygen Flow Rate (L/min) 4 4 04/24/24 16:19 04/24/24 16:49 04/24/24 17:57 Temperature Temperature Source Pulse Rate 74 74 77 Respiratory Rate 22 H 18 18 Blood Pressure 116/63 121/65 H 130/64 H Blood Pressure Mean 80 83 86 Pulse Ox 100 100 100 Oxygen Delivery Method Nasal Cannula Nasal Cannula Nasal Cannula Oxygen Flow Rate (L/min) 4 4 4 04/24/24 19:00 04/24/24 20:00 Temperature Temperature Source Pulse Rate 70 72 Respiratory Rate 18 20 H Blood Pressure 114/92 H 167/84 H Blood Pressure Mean 99 111 Pulse Ox 100 100 Oxygen Delivery Method Nasal Cannula Nasal Cannula Oxygen Flow Rate (L/min) 4 4 [facility] [place] Narrative Medical decision making narrative: HISTORY OF PRESENT ILLNESS: 58-year-old male presents concern for transient left-sided weakness. Notes this occurred around 230 and lasted for approximately 30 seconds. States symptoms completely resolved. He further states patient has been having stuttering symptoms of left-sided facial droop and left upper extremity weakness. Per his and daughters had history of multiple strokes. States he has history of carotid artery stenosis. States he follows with neurology and vascular surgery at [facility]. They state the patient has an appointment for possible carotid arterectomy coming up in the next several weeks. They state last night they noticed slight worsening of his left-sided facial droop. They note his last known well was 6 PM on 04/23/2024. Patient denies chest pain, shortness of breath, new or worsening leg swelling REVIEW OF SYSTEMS: Pertinent positives: Transient left-sided weakness, facial droop Pertinent negatives: Chest pain, shortness of breath PHYSICAL EXAM: Nursing triage notes reviewed, Vital signs reviewed Constitutional: please see mdm HENT: MMM Eyes: Pupils equal round and reactive to light, Extraocular muscles intact Neck: No stridor, no JVD, full neck ROM Lungs: Clear to auscultation, No wheezing or rales. No increased work of breathing, no conversational dyspnea, no accessory muscle use, no nasal flaring. No respiratory distress noted Heart: Regular rate and rhythm, No murmurs, No rubs and No gallops, 2+ distal pulses (radial, femoral, posterior tibial) in all extremities Abdomen: Soft, there is no tenderness, rigidity, rebound or guarding, no obvious peritoneal signs, no palpable pulsatile abdominal masses, no auscultated abdominal bruit : No CVAT Extremities: 3+ pitting edema in bilateral lower extremities Neuro: Alert, oriented, intact speech, sensation, slight flattening of left nasolabial fold, slight drift left upper extremity, otherwise intact sensation and strength in all extremities. No obvious ataxia. NIH of 2 Skin: No rash or lesions noted MEDICAL DECISION MAKING: Chief Complaint: Transient left-sided weakness External records reviewed: Reviewed prior outpatient vascular surgery records. He sees Dr. Pandya (Vascular Surgeon) Factors affecting care: Interstitial lung disease, type 2 diabetes on insulin pump, hypertension, CKD, Social determinants of health: none History obtained from others: none Consults: Vascular surgery (Dr. Carrillo), Stroke Neurology [facility] Narrative: Patient was hypotensive with a blood pressure of 88/52, tachypneic with respirate of 25, afebrile, nontoxic-appearing saturating well on home 4 L. Initial neuroexam with flattening of left nasolabial fold and slight left upper extremity drift I considered the following differential diagnosis: ICH, CVA, TIA, arrhythmia, anemia, electrolyte disturbance Patient's initial NIH of 2 and last well within 24 hours made him within our 24-hour stroke activation window however he is already on Eliquis. His time since last well was outside of any TNK window (22 hours). In addition to this his NIH was less than 6 and he is not a candidate for thrombectomy given this [place] area I opted to perform stroke evaluation but not immediately activate stroke team ALL IMAGES (IF OBTAINED) HAVE BEEN PERSONALLY REVIEWED AND INTERPRETED BY MYSELF. CT scan, CTA showed no evidence of ICH or large vessel occlusion. Patient is appropriate for admission for MRI and risk factor modification EKG with normal sinus rhythm at a rate of 75, left axis deviation, QTc 469, no obvious ischemic changes Patient and family were concerned because the patient's CTA showed slight worsening of his already known carotid stenosis. They note they have an appoint with her vascular surgeon on Saturday we will concerned that maybe the vascular surgeon would want them to be admitted to [facility] as opposed to [facility] to be eval by vascular surgery. We do not have vascular surgery on-call here so I placed a call out to [facility] vascular surgery to ascertain they thought the patient's CTA findings necessitated emergent transfer. Per vascular surgeon at [facility] [place] with Dr. Patino he notes the patient will likely not receive emergent or expedited intervention and the fact that he has appointment on Saturday with Dr. Pandya (vascular surgeon at [facility]) this will probably be the most efficient way to have his vascular abnormalities evaluated. I also discussed the case with the digital librarian Dr. Frost as the patient and family concerned about a clip that was placed in his abdomen early March. Dr. Frost notes a clips manufactured notes it is MRI compatible. He recommended getting a KUB to assess if the clip is even there in the first place. KUB obtained and read by myself showed evidence of the clip still being in place. The patient and/or family, caregivers express understanding. The patient and/or family, caregivers agrees with the plan. Shared decision making: I will have a discussion with the patient and or visitors regarding risk/benefits of further testing or admission. They will be made aware of of the risk/benefits inherent in this decision they will be given the opportunity to voice understanding. Total critical care time today provided was at least 35 minutes. This excludes separately billable procedures. Critical care time (if documented) is secondary to the patient having high probability of clinically significant/life threatening deterioration in the patient's condition which required my urgent intervention. Impression: 1. Acute CVA 2. Left-sided facial droop 3. Left upper extremity weakness 4. History of CVA Dispo: [] This note was generated with [employer]IBLUE[employer] dictation software. It may contain incorrect words, spelling, and punctuation that were not noted in review of the chart prior to signing. Lab Data Labs: Laboratory Results - last 24 hr 04/24/24 15:50 WBC 13.7 H RBC 4.06 L Hgb 9.0 L Hct 31.0 L MCV 76.4 L MCH 22.2 L MCHC 29.0 L D RDW Std Deviation 54.7 H RDW Coeff of Gavi 20.3 H Plt Count 323 MPV 10.2 Immature Gran % (Auto) 0.900 Neut % (Auto) 71.6 H Lymph % (Auto) 13.9 L Dent % (Auto) 10.5 H Eos % (Auto) 2.6 Baso % (Auto) 0.5 Absolute Neuts (auto) 9.8 H Absolute Lymphs (auto) 1.90 Nucleated RBC % 0 Platelet Estimate ADEQUATE RBC Morphology N CHROM Hypochromasia 1+ Anisocytosis 1+ Microcytosis 1+ Ovalocytes 1+ PT 14.4 INR 1.1 APTT 24.8 Sodium 139 Potassium 4.2 Chloride 106 Carbon Dioxide 27.0 Anion Gap 6 BUN 37 H Creatinine 1.30 Estim Creat Clear Calc 84.56 Est GFR (MDRD) Af Amer 72 Est GFR (MDRD) Non-Af 60 BUN/Creatinine Ratio 28.5 H Glucose 81 Calcium 8.9 Troponin I High Sens 190 H* Radiography Diagnostic Testing: Clinical Impression(s) from Imaging Studies Brain CT 04/24/24 16:19 IMPRESSION: Atrophy and moderate periventricular white matter ischemic changes.. No acute bleed Old lacunar infarct in right caudate nucleus. If concern for acute infarct MRI recommended Electronically Signed: Sameer Aparicio MD at 16:47 EST , ADDENDUM: 04/24/24 1656 IMPRESSION: Atrophy and moderate periventricular white matter ischemic changes.. No acute bleed Old lacunar infarct in right caudate nucleus. If concern for acute infarct MRI recommended N.B. : The above Results were Read Back by Sameer Aparicio MD to Daniel Mcneil DO, and understanding confirmed on 04/24/2024 16:50:04 (ET). Electronically Signed: Sameer Aparicio MD at 16:47 EST , ADDENDUM: 04/24/24 1700 IMPRESSION: Atrophy and moderate periventricular white matter ischemic changes.. No acute bleed Old lacunar infarct in right caudate nucleus. If concern for acute infarct MRI recommended N.B. : The above Results were Read Back by Sameer Aparicio MD to Daniel Mcneil DO, and understanding confirmed on 04/24/2024 16:53:15 (ET). Electronically Signed: Sameer Aparicio MD at 16:47 EST , Head/Neck CTA 04/24/24 16:20 IMPRESSION: Atherosclerotic changes in the brain with most severe involvement of the proximal M1 segment of the right middle cerebral artery which is severely diffusely narrowed Advanced atherosclerotic disease of the neck with high-grade stenosis of the carotid bulb and origin of the internal carotids bilaterally slightly worse on the right due to extensive calcific plaque . Electronically Signed: Sameer Aparicio MD at 17:03 EST , ADDENDUM: 04/24/24 1719 IMPRESSION: Atherosclerotic changes in the brain with most severe involvement of the proximal M1 segment of the right middle cerebral artery which is severely diffusely narrowed Advanced atherosclerotic disease of the neck with high-grade stenosis of the carotid bulb and origin of the internal carotids bilaterally slightly worse on the right due to extensive calcific plaque . N.B. : The above Results were Read Back by Sameer Aparicio MD to Daniel Mcneil DO, and understanding confirmed on 04/24/2024 17:12:28 (ET). Electronically Signed: Sameer Aparicio MD at 17:03 EST Reading Location ID and State: [address] [place] [address] Tel [phone], Service support , ADDENDUM: 04/24/24 1747 IMPRESSION: undefined Chest X-Ray 04/24/24 16:38 IMPRESSION: Severe diffuse interstitial and emphysematous changes. Status post clearing of previously noted right lower lobe infiltrate Electronically Signed: Sameer Aparicio MD at 17:43 EST , KUB X-Ray 04/24/24 19:48 IMPRESSION: Nonspecific abdomen Electronically Signed: Sameer Aparicio MD at 20:12 EST , Discharge Plan Disposition Disposition: Acute Care Hospital [facility] Discharge Date/Time: 04/24/24 21:10
--- NOTE | 2024-04-24 16:19 | EKG12_ITS ---
Test Reason : NEURO SYMPTOMS Blood Pressure : */* mmHG Vent. Rate : 75 BPM Atrial Rate : 75 BPM P-R Int : 144 ms QRS Dur : 114 ms QT Int : 420 ms P-R-T Axes : 14 -14 43 degrees QTcB Int : 469 ms Normal sinus rhythm Moderate voltage criteria for LVH, may be normal variant ( R in aVL , Miguel product ) Borderline ECG Confirmed by KATHRYN MCRAE, YASH ([id number]), editor sound JULIAN COSTELLO ([id number]) on 04/28/2024 6:09:06 AM Referred By: Daniel Mcneil Confirmed By: YASH PERALTA MD
--- NOTE | 2024-04-24 16:19 | CT_ITS ---
We are attempting to reach an attending provider to discuss findings. An addendum with communication details will be sent when the communication is complete. INDICATION: Neuro deficit, acute, stroke suspected EXAMINATION: CT BRAIN - CT Head Stroke Protocol W/O Contrast Injection TECHNIQUE: Multiple axial images were obtained of the head without intravenous contrast. The protocol utilizes one or more of the following dose reduction techniques: automated exposure control, adjustment of mA and/or kV according to patient size,and/or use of iterative reconstruction technique. IV Contrast dosage and agent: None. RADIATION DOSAGE (If Supplied By Facility): CTDIvol = ( ) mGy, DLP = ( 829.85 ) mGycm COMPARISON: November 16, 2023 FINDINGS: BRAIN PARENCHYMA: No intra- or extra-axial hemorrhage. No evidence of acute infarct. No intracranial mass or mass effect. Moderate periventricular white matter ischemic changes. There is preservation of the carvalho/white matter interface. Posterior fossa structures are unremarkable. Old lacunar infarct in head of right caudate nucleus CSF SPACES: Mild atrophy No hydrocephalus. Basal cisterns are patent. CALVARIUM, SKULL BASE, PARANASAL SINUSES AND MASTOID AIR CELLS: [Mucous retention cyst in left maxillary sinus. No discrete lytic or blastic abnormalities. ORBITS: Both globes, extraocular muscles, optic nerves and retrobulbar fat appear unremarkable. Mild calcific plaquing of the cavernous carotid and vertebral arteries No significant change since prior exam CT/STROKE Brain/Head without Cont IMPRESSION: Atrophy and moderate periventricular white matter ischemic changes.. No acute bleed Old lacunar infarct in right caudate nucleus. If concern for acute infarct MRI recommended Electronically Signed: Sameer Aparicio MD at 16:47 EST Reading Location ID and State: [facility] / [place] Tel , Service support ,
--- NOTE | 2024-04-24 16:20 | CT_ITS ---
We are attempting to reach an attending provider to discuss findings. An addendum with communication details will be sent when the communication is complete. STUDY: CTA HEAD AND NECK WITH CONTRAST REASON FOR EXAM: Male, 58 years old. Neuro deficit, acute, stroke suspected RADIATION DOSAGE (If Supplied By Facility): CTDIvol = ( 22.33 ) mGy, DLP = ( 806.42 ) mGycm TECHNIQUE: CT angiography was performed with a multi-detector CT scanner. Data acquisition was obtained from the skull base through the vertex following intravenous administration of IV 100mL [id number]-[id number]. MIP images were reconstructed from the axial data set. Post-processing of the angiographic images was performed, with multiplanar reformation and 3D reconstruction. Individualized dose optimization techniques were used for this CT. COMPARISON: No relevant priors. FINDINGS: Normal bilateral petrous carotid arteries. Moderate calcific plaquing of the right cavernous carotid artery with a normal supraclinoid bifurcation. Mild calcific plaquing of the left cavernous carotid artery with a normal supraclinoid bifurcation. Normal right A1 segments of the anterior cerebral artery. Normal left A1 segments of the anterior cerebral artery. Normal intact anterior communicating artery (ACOM). Normal bilateral A2 segments of the anterior cerebral arteries. High-grade stenosis of the proximal right M1 and normal M2 segments of the middle cerebral arteries, with a normal M1 bifurcation. Normal left M1 and M2 segments of the middle cerebral arteries, with a normal M1 bifurcation. Normal right posterior communicating artery (PCOM). Normal left posterior communicating artery (PCOM). Minor calcific plaquing of the bilateral vertebral arteries. Normal basilar artery with a normal basilar bifurcation. The visualized bilateral superior cerebellar (SCA) arteries are normal. Normal bilateral P1, P2 and visualized P3 segments of the posterior cerebral arteries. There is no demonstrated aneurysm of the in[place] of [place]. Old lacunar infarct of the head of right caudate nucleus AORTIC ARCH: Multifocal calcific plaquing of the visualized aortic arch. Mild calcific plaquing of the origins of the brachiocephalic, left common carotid, and left subclavian arteries. RIGHT CAROTID ARTERIES: Multifocal calcific plaquing of the right common carotid artery (CCA). Severe calcific plaquing creating high-grade stenosis of the right common carotid bulb. Severe calcific plaquing creating high-grade stenosis of the origin of the right internal carotid (ICA) artery without a hemodynamically significant stenosis. Normal visualized cervical portion of the right internal carotid artery. Normal origin of the right external carotid artery (ECA). LEFT CAROTID ARTERIES: Multifocal calcific plaquing of the left common carotid artery (CCA). Severe calcific plaquing of the left common carotid bulb creating high-grade stenosis. Severe calcific plaquing creating high-grade stenosis origin of the left internal carotid (ICA) artery without a hemodynamically significant stenosis. Normal visualized cervical portion of the left internal carotid artery. Normal origin of the left external carotid artery (ECA). VERTEBRAL ARTERIES: Normal bilateral vertebral arteries. CT/STROKE CTA Head AND Neck W/Con IMPRESSION: Atherosclerotic changes in the brain with most severe involvement of the proximal M1 segment of the right middle cerebral artery which is severely diffusely narrowed Advanced atherosclerotic disease of the neck with high-grade stenosis of the carotid bulb and origin of the internal carotids bilaterally slightly worse on the right due to extensive calcific plaque . Electronically Signed: Sameer Aparicio MD at 17:03 EST Reading Location ID and State: [facility] / [place] Tel , Service support ,
[2024-04-24 16:31] LABS: Absolute Neutrophil Count 9.8 X10^3/uL (2.0-7.7); Basophil# 0.07 X10^3/uL; Basophil% 0.5 % (0-1); Eosinophil# 0.35 X10^3/uL; Eosinophils% 2.6 % (0-5); Lymphocyte % 13.9 % (19-41); Mean Corpuscular Hgb 22.2 pg (27.0-32.0); Mean Corpuscular Volume 76.4 fL (80-94); Mean Platelet Vol. 10.2 fl (6.2-12.0); Monocyte# 1.44 X10^3/uL; Monocyte% 10.5 % (0-10); NRBC Flagged by Analyzer 0 % (0-5); Neutrophil # 9.83 X10^3/uL (2.7-7.7); Neutrophil % 71.6 % (47-70); POSITIVE MORPHOLOGY YES; Platelet Count 323 K/mm3 (150-450); RBC Distribution Width CV 20.3 % (11.6-14.6); RBC Distribution Width SD 54.7 fl (35.1-43.9); Red Blood Count 4.06 M/mm3 (4.6-6.2); White Blood Count 13.7 K/mm3 (4.4-11.0)
--- NOTE | 2024-04-24 16:38 | RAD_ITS ---
STUDY: X-RAY CHEST REASON FOR EXAM: Male, 58 years old. Neuro deficit, acute, stroke suspected TECHNIQUE: AP portable COMPARISON: April 12, 2024 FINDINGS: There is less than optimal inspiratory effort however there is severe diffuse interstitial and emphysematous changes with patchy areas of groundglass opacity.. There is no demonstrated pleural abnormality. Heart is enlarged.. Normal mediastinum and darrel. Normal visualized pulmonary arteries. Calcified aortic arch and descending thoracic aorta. Normal visualized thoracic spine. Normal visualized ribs, clavicles, and shoulders. There is no demonstrated abnormality of the visualized soft tissue structures of the upper abdomen. There is significantly improved aeration of the right lower lobe since prior exam. RAD/Chest 1 View IMPRESSION: Severe diffuse interstitial and emphysematous changes. Status post clearing of previously noted right lower lobe infiltrate Electronically Signed: Sameer Aparicio MD at 17:43 EST ,
[2024-04-24 16:41] LABS: Partial Thromboplast Time 24.8 Seconds (24.1-36.2)
[2024-04-24 16:44] LABS: International Normalized Ratio 1.1; Prothrombin Time (Protime)PT. 14.4 SECONDS (11.7-14.9)
[2024-04-24 16:52] LABS: Anion Gap 6 (5-15); BUN 37 mg/dL (7-18); BUN/Creat Ratio 28.5 RATIO (10-20); Calcium,Total 8.9 mg/dL (8.5-10.1); Chloride 106 mmol/L (98-107); Differential Indicated SCAN CRITERIA MET; EST Glomerular Filtration Rate 60 mL/min (>60); Est Glom Filt Rate - Afr Amer 72 mL/min (>60); Estimated Creatinine Clearance 84.56 ml/min; Glucose 81 mg/dL (74-106); Potassium 4.2 mmol/L (3.5-5.1); Sodium Level 139 mmol/L (136-145); Troponin-I HS 190 pg/mL (3.0-78.0)
[2024-04-24 17:06] LABS: Platelet Estimate ADEQUATE (ADEQ); Red Cell Morphology N CHROM NORMAL (NORM C&C)
[2024-04-24 17:07] LABS: Anisocytosis 1+; Hypochromasia 1+; Microcytosis 1+; Ovalocyte 1+
--- NOTE | 2024-04-24 17:17 | ED.RN ---
per dr. bruce mitchell to change NIH to Q2 hours
--- NOTE | 2024-04-24 19:48 | RAD_ITS ---
STUDY: X-RAY - ABDOMEN/PELVIS REASON FOR EXAM: Male, 58 years old. clip TECHNIQUE: KUB COMPARISON: None. FINDINGS: Prominent interstitial thickening in both lower lobes more severe on the left. There is an unremarkable bowel gas pattern. There is no demonstrated free abdominal air. There is residual contrast seen within the kidneys and bladder. The visualized liver, spleen and kidneys are grossly normal in size and morphology. Postop changes of the right upper quadrant Normal visualized osseous structures. RAD/Abdomen Single View (Portable) IMPRESSION: Nonspecific abdomen Electronically Signed: Sameer Aparicio MD at 20:12 EST ,
--- NOTE | 2024-04-24 20:25 | PCM.HP.STD ---
HPI - General General Date of Admission: 04/24/24 Date of Service: 04/24/24 Chief Complaint: L sided facial droop/LUE weakness HPI Narrative The patient is a 58 y/o M w/ PMHx: BPH with obstructive pathology, KIANNA on BiPAP nightly, ILD w/ Chronic Hypoxic Respiratory Failure 4L NC, HTN, HLD, PAF, HFpEF, CKD stage II, Chronic anemia/Fe deficiency anemia, Hodgkin's lymphoma, Diabetes mellitus type II with chronic neuropathy, Hypothyroidism, Anxiety and Depression, Hx CVA w/ notable carotid disease following with neurology and vascular surgery at [facility] with planned upcoming intervention for possible carotid arterectomy in the next 1 to 2 weeks, recently discharged 04/15/2024 following evaluation and treatment of acute on chronic hypoxic respiratory failure secondary to heart failure exacerbation who now re-presents to the [facility] ED on 04/24/24 with onset at approximately 2:30 PM lasting approximately 30 seconds left-sided weakness that was transient with following this continued intermittent stuttering symptoms including left-sided facial droop and left upper extremity weakness however they also reported that the evening prior he had did have slight worsening of the left-sided facial droop from previously with last known absolute well previous baseline 6 PM on 04/23/2024 prompting eventual ED evaluation to be cautious. In the ED patient's initial NIH stroke score 2. Stroke evaluation was initiated. Patient denies any dyspnea or chest discomfort of note. Workup in the ED included T96.9, heart rate 88, BP 88/52 initially, respiratory rate 25, 87% on chronic 4 L nasal cannula, most recent repeat vitals heart rate 70, BP 114/92, respiratory rate 18, 100% on 4 L nasal cannula, CBC with WBC 13.7, hemoglobin 9.0, MCV 76.4, platelet 323 with left shift, unremarkable coags, BMP with BUN/creatinine 37/1.30, GFR 60, CT of the head with atrophy and moderate periventricular white matter ischemic changes with an old lacunar infarct in the right caudate nucleus, CTA head and neck with sclerotic changes in the brain with most severe involvement of the proximal M1 segment of the right middle cerebral artery which is severely diffusely narrowed, advanced atherosclerotic disease of the neck with high-grade stenosis of the carotid bulb and origin of the internal carotids bilaterally slightly worse on the right due to extensive calcific plaque and radiology eventually able to make a comparison from September 2023 imaging noted the disease did appear more extensive than previously, chest x-ray with severe diffuse interstitial and emphysematous changes, KUB with no acute findings. ED physician did discuss case with vascular surgery at [facility] and notes he would not plan any acute intervention. ED also discussed case with Dr. Frost as recent clip was placed and he notes that it is MRI compatible as there was some concern for per patient/family. 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 Morbid obesity with BMI of 45.0-49.9, adult Atherosclerotic heart disease of koi coronary artery without angina pectoris Mini stroke (~10/01/23) Peripheral vestibulopathy Ischemic cerebrovascular accident (CVA) Cranial nerve disorder Polyneuropathy Wears glasses Depression Anxiety Cancer Thyroid disease Insulin dependent diabetes mellitus Arthritis History of renal disease Prostate disease Gastric reflux CPAP (continuous positive airway pressure) dependence Sleep apnea Shortness of breath on exertion History of echocardiogram History of stress test History of CHF (congestive heart failure) Cardiology follow-up encounter History of atrial fibrillation Neuropathy Multiple thyroid nodules Microalbuminuria Thyroid nodule Double vision Non-proliferative diabetic retinopathy KIANNA treated with BiPAP Vertigo Congestive heart failure (CHF) Low testosterone Carotid stenosis High cholesterol Vision loss of right eye Vision loss of left eye Anemia Non-smoker Atrial fibrillation Hypertension Paroxysmal atrial fibrillation Polyneuropathy due to type 2 diabetes mellitus History of non-ST elevation myocardial infarction (NSTEMI) (03/28/20) TIA (transient ischemic attack) (2018) Hodgkin disease GERD (gastroesophageal reflux disease) BPH (benign prostatic hyperplasia) Anxiety and depression Morbid obesity with BMI of 45.0-49.9, adult Nephrolithiasis Hyperlipidemia Diabetes mellitus, type II Home Medications ?Medication ?Instructions ?Recorded ?Last Taken ?Type tamsulosin 0.4 mg capsule 0.4 mg PO DAILY prostate 09/08/15 11/16/23 History buspirone 10 mg tablet 10 mg PO TID Anxiety 04/17/18 03/27/24 History duloxetine 60 mg capsule,delayed 60 mg PO DAILY depression 04/17/18 11/16/23 History release (Cymbalta) 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 meter,continuous #1 ea 07/26/20 Unknown Rx (Dexcom G6 Third Cook) pen needle, diabetic 31 gauge x #1,200 ea 12/22/20 Unknown History 08/14 pen needle, diabetic 32 gauge x #150 ea 06/01/21 Unknown Rx (BD Ultra-Fine Kiki Pen Needle) atorvastatin 80 mg tablet (Lipitor) 80 mg PO QHS cholesterol 09/04/21 11/15/23 History 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 transmitter (Dexcom #1 ea 12/29/21 Unknown Rx G6 Transmitter device) infusion set for insulin pump 10/08/22 Unknown History insulin pump controller 10/08/22 Unknown History hydrocodone-acetaminophen 5-325mg 1 tab PO BID PRN pain 02/14/23 11/16/23 History 5mg-325mg 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 sensor (Dexcom G6 #1 ea 02/25/23 Unknown Rx Sensor device) apixaban 5 mg tablet (Eliquis) 5 mg PO BID blood thinner #180 tabs 07/21/23 03/24/24 Rx insulin regular hum U-500 conc 500 75 unit (0.15 mL) continuous 11/11/23 11/16/23 Rx unit/mL subcutaneous soln (Humulin subcutaneous infusion DAILY blood R U-500 (Concentrated) Insulin) sugar #20 mL empagliflozin 25 mg tablet 25 mg PO DAILY diabetes #30 tabs 11/27/23 Unknown Rx (Jardiance) clopidogrel 75 mg tablet (Plavix) 75 mg PO DAILY anti platelet 21 12/06/23 03/24/24 Rx days #30 tabs albuterol sulfate 90 mcg/actuation 2 puff inhalation Q4H PRN 02/06/24 Unknown Rx aerosol inhaler (Ventolin HFA) shortness of breath or wheezing #18 grams fenofibrate 54 mg tablet 54 mg PO DAILY cholesterol #30 tabs 02/23/24 Unknown Rx ferrous sulfate 325 mg (65 mg 325 mg PO DAILY anemia 03/02/24 Unknown History iron) tablet (Feosol) amlodipine 5 mg tablet 5 mg PO QDAY blood pressure 03/13/24 03/27/24 History aspirin 325 mg tablet 325 mg PO DAILY heart health 03/13/24 Unknown History glimepiride 4 mg tablet 4 mg PO QAM diabetes 03/13/24 Unknown History metoprolol succinate 100 mg 100 mg PO DAILY heart #90 tabs 03/27/24 Unknown Rx tablet,extended release 24 hr lisinopril 40 mg tablet 40 mg PO DAILY blood pressure 04/12/24 Unknown History pantoprazole 40 mg tablet,delayed 40 mg PO DAILY acid reflux 04/12/24 Unknown History release (Protonix) spironolactone 50 mg tablet 50 mg PO DAILY water pill 04/12/24 Unknown History prednisone 20 mg tablet 40 mg (2 x 20 mg) PO DAILY 5 days 04/15/24 Unknown Rx #10 tabs nintedanib 150 mg capsule (Ofev) 150 mg PO Q12H #60 caps 04/22/24 Unknown Rx dextromethorphan-guaifenesin ER 60 1 tab PO DAILY 04/24/24 Unknown History mg-1,200 mg tab,extend release,12hr furosemide 40 mg tablet (Lasix) 40 mg PO BID diuretic 04/24/24 Unknown History levothyroxine 112 mcg tablet 112 mcg PO DAILY 04/24/24 Unknown History Allergy/AdvReac Type Severity Reaction Status Date / Time metoclopramide HCl (From Allergy Severe Anaphylaxis Verified 04/24/24 15:07 Reglan) Family History Brother Heart disease Mother CVA (cerebral vascular accident) Hypertension Rheumatoid arthritis Father Diabetes Other Alcohol abuse ulcer disease Surgical History History of cardiac catheterization History of lymph node excision History of left heart catheterization (2009) Hx of nephrolithotomy with removal of calculi History of thoracentesis (2015) Social History household members: spouse and none Smoking Status: Never smoker Electronic Cigarette Use: not used second hand exposure: No alcohol intake: never substance use type: does not use what type of physical activity do you participate in: none ROS ROS Narrative Admission Review of Systems: CONSTITUTIONAL: No weight loss, fever, chills, + weakness or fatigue. HEENT: Eyes: No visual loss, blurred vision, double vision or yellow sclerae. Ears, Nose, Throat: No hearing loss, sneezing, congestion, runny nose or sore throat. SKIN: No rash or itching, lesions, wounds except + occasional stage ecchymoses, abrasion. CARDIOVASCULAR: No chest pain, chest pressure or chest discomfort, palpitations, edema, orthopnea, syncopal events. RESPIRATORY: + On chronic oxygen, chronic dyspnea with exertion primarily. No current markedly noted cough or increased sputum, wheezing, hemoptysis. GASTROINTESTINAL: No anorexia, nausea, vomiting or diarrhea, abdominal pain, melena, BRBPR. GENITOURINARY: No dysuria, frequency, urgency or retention. NEUROLOGICAL: + Left-sided facial droop, left upper extremity weakness, transiently slurred speech with facial droop. No headache, dizziness, syncope, paralysis, ataxia, numbness or tingling in the extremities, focal weakness, change in bowel or bladder control, seizure. MUSCULOSKELETAL: + muscle, back pain, joint pain or stiffness. HEMATOLOGIC: + Chronic anemia's, easy bleeding/bruising. LYMPHATICS: No enlarged nodes. No history of splenectomy. PSYCHIATRIC: + History of anxiety and depression. ENDOCRINOLOGIC: No reports of sweating, cold or heat intolerance. No polyuria or polydipsia. ALLERGIES: + History of anaphylaxis. Vital Signs Vital Signs Vital Signs: 04/24/24 15:07 04/24/24 16:06 04/24/24 16:19 Temperature 96.9 F L Temperature Source Temporal Pulse Rate 88 75 Respiratory Rate 25 H 18 Blood Pressure 88/52 L 102/55 L Blood Pressure Mean 64 70 Pulse Ox 97 98 Oxygen Delivery Method Nasal Cannula Nasal Cannula Room Air Oxygen Flow Rate (L/min) 4 4 04/24/24 16:19 04/24/24 16:49 04/24/24 17:57 Temperature Temperature Source Pulse Rate 74 74 77 Respiratory Rate 22 H 18 18 Blood Pressure 116/63 121/65 H 130/64 H Blood Pressure Mean 80 83 86 Pulse Ox 100 100 100 Oxygen Delivery Method Nasal Cannula Nasal Cannula Nasal Cannula Oxygen Flow Rate (L/min) 4 4 4 04/24/24 19:00 04/24/24 20:00 Temperature Temperature Source Pulse Rate 70 72 Respiratory Rate 18 20 H Blood Pressure 114/92 H 167/84 H Blood Pressure Mean 99 111 Pulse Ox 100 100 Oxygen Delivery Method Nasal Cannula Nasal Cannula Oxygen Flow Rate (L/min) 4 4 Weight Weight: 311 lb 8.211 oz Body Mass Index (BMI) 46.0 Physical Exam Narrative Physical Examination: General: Awake, alert, oriented x 3 and cooperative, seated upright in the ED bed in no apparent distress, patient and family present report that he seems back to his previous baseline. Skin: Normal color, normal turgor, no icterus, no cyanosis except occasional stage ecchymoses, abrasions. HEENT: AT/NC, EOMI, PERRLA, MMM, chronic supplemental oxygen nasal cannula in place, no carotid bruits or JVD noted. Lungs: Diminished, greater bases, appropriate effort, small crackles diffusely as expected given interstitial lung disease, no marked rhonchi or wheezing. Heart: Regular rate and rhythm; no gallop, rub audible. Abdomen: Soft, morbidly obese, NTTP, ND, mildly hyperactive BS, no appreciated HSM. Extremities: No cyanosis, no clubbing, mild pedal to distal hudson edema, stable per patient report. Neurological: Patient awake, alert, oriented as noted, cognitive function intact; pupils equally reactive to light and accommodation, cranial nerves grossly normal with significant improvement of left-sided facial droop, very minimally notable, corrects with smile, left upper extremity moving well compared to previously, speech clear, strength resolved, finger-nose and [id number] appropriate, Babinski equivocal. Psychiatric: Affect appears fatigued otherwise normal, no acute evidence of depressive or anxiety feelings but does have underlying history. Results Lab / Micro Data 04/24/24 15:50 04/24/24 15:50 Labs: Laboratory Results - last 24 hr 04/24/24 15:50: WBC 13.7 H, RBC 4.06 L, Hgb 9.0 L, Hct 31.0 L, MCV 76.4 L, MCH 22.2 L, MCHC 29.0 L D, RDW Std Deviation 54.7 H, RDW Coeff of Gavi 20.3 H, Plt Count 323, MPV 10.2, Immature Gran % (Auto) 0.900, Neut % (Auto) 71.6 H, Lymph % (Auto) 13.9 L, Letcher % (Auto) 10.5 H, Eos % (Auto) 2.6, Baso % (Auto) 0.5, Absolute Neuts (auto) 9.8 H, Absolute Lymphs (auto) 1.90, Nucleated RBC % 0, Platelet Estimate ADEQUATE, RBC Morphology N CHROM, Hypochromasia 1+, Anisocytosis 1+, Microcytosis 1+, Ovalocytes 1+, PT 14.4, INR 1.1, APTT 24.8, Sodium 139, Potassium 4.2, Chloride 106, Carbon Dioxide 27.0, Anion Gap 6, BUN 37 H, Creatinine 1.30, Estim Creat Clear Calc 84.56, Est GFR (MDRD) Af Amer 72, Est GFR (MDRD) Non-Af 60, BUN/Creatinine Ratio 28.5 H, Glucose 81, Calcium 8.9, Troponin I High Sens 190 H* Imaging Radiology Impression Brain CT 04/24/24 16:19 IMPRESSION: Atrophy and moderate periventricular white matter ischemic changes.. No acute bleed Old lacunar infarct in right caudate nucleus. If concern for acute infarct MRI recommended Electronically Signed: Sameer Aparicio MD at 16:47 EST , ADDENDUM: 04/24/24 1656 IMPRESSION: Atrophy and moderate periventricular white matter ischemic changes.. No acute bleed Old lacunar infarct in right caudate nucleus. If concern for acute infarct MRI recommended N.B. : The above Results were Read Back by Sameer Aparicio MD to Daniel Mcneil DO, and understanding confirmed on 04/24/2024 16:50:04 (ET). Electronically Signed: Sameer Aparicio MD at 16:47 EST , ADDENDUM: 04/24/24 1700 IMPRESSION: Atrophy and moderate periventricular white matter ischemic changes.. No acute bleed Old lacunar infarct in right caudate nucleus. If concern for acute infarct MRI recommended N.B. : The above Results were Read Back by Sameer Aparicio MD to Daniel Mcneil DO, and understanding confirmed on 04/24/2024 16:53:15 (ET). Electronically Signed: Sameer Aparicio MD at 16:47 EST Reading Location ID and State: [address] [place] [address] Tel [phone], Service support , Head/Neck CTA 04/24/24 16:20 IMPRESSION: Atherosclerotic changes in the brain with most severe involvement of the proximal M1 segment of the right middle cerebral artery which is severely diffusely narrowed Advanced atherosclerotic disease of the neck with high-grade stenosis of the carotid bulb and origin of the internal carotids bilaterally slightly worse on the right due to extensive calcific plaque . Electronically Signed: Sameer Aparicio MD at 17:03 EST Reading Location ID and State: [address] [place] [address] Tel [phone], Service support , ADDENDUM: 04/24/24 1719 IMPRESSION: Atherosclerotic changes in the brain with most severe involvement of the proximal M1 segment of the right middle cerebral artery which is severely diffusely narrowed Advanced atherosclerotic disease of the neck with high-grade stenosis of the carotid bulb and origin of the internal carotids bilaterally slightly worse on the right due to extensive calcific plaque . N.B. : The above Results were Read Back by Sameer Aparicio MD to Daniel Mcneil DO, and understanding confirmed on 04/24/2024 17:12:28 (ET). Electronically Signed: Sameer Aparicio MD at 17:03 EST Reading Location ID and State: [address] [place] [address] Tel [phone], Service support , ADDENDUM: 04/24/24 1747 IMPRESSION: undefined Chest X-Ray 04/24/24 16:38 IMPRESSION: Severe diffuse interstitial and emphysematous changes. Status post clearing of previously noted right lower lobe infiltrate Electronically Signed: Sameer Aparicio MD at 17:43 EST Reading Location ID and State: [facility] / [place] Tel [phone], Service support , KUB X-Ray 04/24/24 19:48 IMPRESSION: Nonspecific abdomen Electronically Signed: Sameer Aparicio MD at 20:12 EST Reading Location ID and State: [facility] / [place] Tel , Service support , Assessment & Plan Assessment/Plan (1) CVA (cerebral vascular accident): PLAN: Plan The patient is a 58 y/o M w/ PMHx: BPH with obstructive pathology, KIANNA on BiPAP nightly, ILD w/ Chronic Hypoxic Respiratory Failure 4L NC, HTN, HLD, PAF, HFpEF, CKD stage II, Chronic anemia/Fe deficiency anemia, Hodgkin's lymphoma, Diabetes mellitus type II with chronic neuropathy, Hypothyroidism, Anxiety and Depression, Hx CVA w/ notable carotid disease following with neurology and vascular surgery at [facility] with planned upcoming intervention for possible carotid arterectomy in the next 1 to 2 weeks, recently discharged 04/15/2024 following evaluation and treatment of acute on chronic hypoxic respiratory failure secondary to heart failure exacerbation who now re-presents to the [facility] ED on 04/24/24 with onset at approximately 2:30 PM lasting approximately 30 seconds left-sided weakness that was transient with following this continued intermittent stuttering symptoms including left-sided facial droop and left upper extremity weakness however they also reported that the evening prior he had did have slight worsening of the left-sided facial droop from previously with last known absolute well previous baseline 6 PM on 04/23/2024 prompting eventual. #1. Acute CVA with worsening left-sided facial droop, left upper extremity weakness with history of previous CVA with stuttering type symptoms with significant carotid and right middle cerebral disease which is known: Will admit to PCU, will obtain MRI Brain, PT/OT/Speech/Nutrition evaluation per protocol. Will allow permissive HTN, maintain on asa/plavix, Eliquis, statin w/ AM FLP, fall precautions. Mag, TSH, FLP, HgbA1c requested. Maintain on fall and aspiration precautions. Will continue neurology consultation. Patient will need to continue follow-up with vascular surgery at [facility] with planned upcoming visit on 04/27/2024. #2. Indeterminate cardiac enzyme of unclear etiology: EKG in ED , chest x-ray with severe diffuse interstitial and emphysematous changes, initial trop 190. Will maintain on monitored bed to assure no acute myocardial infarction with serial cardiac enzymes and EKGs. Magnesium level requested. FLP in AM. 04/14/2024 echocardiogram with LV systolic function normal, LVEF 60%, mild to moderate mitral annular calcification, mild concentric LVH, negative bubble study. Maintain on aspirin. Currently on Eliquis twice daily. If enzymes continue to rise then would repeat echocardiogram and involve cardiology. #3. Diabetes mellitus type II with chronic neuropathy: Hold oral diabetic regimen, clarifying patient insulin pump which we continued with close monitoring of blood sugars with hold as needed, once passes swallow evaluation will allow ADA diet, accu checks w/ ISS. #4. HFpEF: We will continue patient home Eliquis regimen, statin therapy, temporally holding hypertensive regimen for permissive hypertension, judicious hydration if needed given history, add back regimen once clinically appropriate. 04/14/2024 echocardiogram with LV systolic function normal, LVEF 60%, mild to moderate mitral annular calcification, mild concentric LVH, negative bubble study. #5. Hypertension: Given presentation will maintain permissive hypertension. Agents per stroke protocol. #6. Hyperlipidemia: Continue home statin and fenofibrate regimen. AM FLP. #7. Interstitial lung disease with chronic hypoxic respiratory failure 4 L NC: Following with Dr. Rodriguez pulmonary medicine outpatient, encourage continued outpatient follow-up, continue chronic oxygen supplementation. #8. Anxiety and depression: We will continue patient home duloxetine and cautiously BuSpar regimen with hold parameters for sedation. #9. PAF: Temporally holding metoprolol for permissive hypertension, add back once appropriate, continue Eliquis regimen. #10. Hodgkin's lymphoma: Noted to be in remission, encourage continued outpatient follow-up with oncology as previously arranged. #11. Hypothyroidism: Continue home levothyroxine regimen, TSH pending. #12. Chronic Kidney Disease Stage II per GFR trending although has vacillated: Admission BUN/Cr 37/1.30, GFR 60, baseline renal function primarily 0.9-1.3, repeat BMP in AM. #13. Chronic microcytic anemia/iron deficiency anemia: Admission hemoglobin 9.0, MCV 76.4, baseline hemoglobin appears primarily 8-9 range, stable, continue to trend, continue iron supplementation. Noted EGD and colonoscopy 03/27/2024 with single bleeding colonic angiodysplastic lesion treated with a monopolar probe as well as polyps in the ascending colon and hepatic flexure removed with hot snare. #14. Morbid Obesity: Weight loss and lifestyle changes encouraged, nutrition consulted. #15. BPH with obstructive pathology: We will continue patient on Flomax regimen. #16. KIANNA: Will maintain on BIPAP nightly. #17. DVT prophylaxis: Continue patient home Eliquis regimen. #18. CODE status: Patient HCPOA is not in place but he notes his to be his medical decision-maker if needed but he does have a living will he notes. Discussed CODE status at length including difference between FULL code, DNR-CCA and DNR-CC status. Following discussions about the differences in these status, requested DNR-CCA, no intubation. Examples and situations were discussed at length and he and his family eventually decided on the status. Advanced Care Planning Face to Face Time: 16 minutes. Charges/Coding Visit Charges Inpatient E&M: 10049 Init Hosp L3 Procedures Hospitalists Procedures: 38985 Advncd Care Plan 30 Min
[2024-04-24 21:30] LABS: Magnesium 2.1 mg/dL (1.6-2.6)
[2024-04-24 22:18] LABS: Troponin-I HS 106 pg/mL (3.0-78.0)
[2024-04-24] MEDS: Fenofibrate 48 MG Tablet PO (22:52)
[2024-04-24] MEDS: APIXABAN 5 MG TABLET PO (22:53)
[2024-04-24] MEDS: Atorvastatin Calcium 80 MG Tablet PO (22:53)
[2024-04-24] MEDS: MELATONIN 3 MG TABLET PO (23:31)
--- NOTE | 2024-04-25 00:05 | PCM.HOSP.N ---
Hospitalist Note Insulin pump tube broke upon transition to floor. Patient is unsure of exact dosing and although there is a recent note from Endocrine is does not specify bolus dosing or any such in that note. Will place on lantus low dose BID with ISS until can bring his pump tubing in the AM. Requested this be brought in early. Also, requested staff to contact his pharmacy to verify how pump is being dosed.
[2024-04-25 00:17] LABS: Troponin-I HS 103 pg/mL (3.0-78.0)
[2024-04-25 00:43] LABS: Bedside Glucose 249 mg/dL (74-106)
[2024-04-25] MEDS: Insulin Glargine-YFGN 100 UNIT/ML Pen 15 UNIT SC ×2 (00:55→09:06)
--- NOTE | 2024-04-25 01:00 | CPS ---
Patient refused PAP therapy for night time use.
[2024-04-25 02:00] VITALS: BP 130/72; PULSE 73; RESP 18; TEMP 36.7; O2SAT 99
[2024-04-25 03:56] LABS: Absolute Neutrophil Count 8.9 X10^3/uL (2.0-7.7); Basophil# 0.06 X10^3/uL; Basophil% 0.5 % (0-1); Eosinophil# 0.39 X10^3/uL; Eosinophils% 3.1 % (0-5); Hematocrit 29.2 % (40-54); Hemoglobin 8.6 g/dL (13.0-16.5); Lymphocyte % 14.4 % (19-41); Mean Corp Hgb Conc 29.5 g/dL (32-36); Mean Corpuscular Hgb 22.2 pg (27.0-32.0); Mean Corpuscular Volume 75.3 fL (80-94); Mean Platelet Vol. 9.7 fl (6.2-12.0); Monocyte# 1.22 X10^3/uL; Monocyte% 9.8 % (0-10); NRBC Flagged by Analyzer 0 % (0-5); Neutrophil # 8.91 X10^3/uL (2.7-7.7); Neutrophil % 71.6 % (47-70); POSITIVE MORPHOLOGY YES; Platelet Count 300 K/mm3 (150-450); RBC Distribution Width CV 20.5 % (11.6-14.6); RBC Distribution Width SD 54.5 fl (35.1-43.9); Red Blood Count 3.88 M/mm3 (4.6-6.2); White Blood Count 12.5 K/mm3 (4.4-11.0)
[2024-04-25 04:19] LABS: Differential Indicated SCAN CRITERIA MET
[2024-04-25 04:21] LABS: Troponin-I HS 76 pg/mL (3.0-78.0)
[2024-04-25 04:37] LABS: Differential Comment SCANNED; Polychromasia RARE
[2024-04-25 04:38] LABS: Microcytosis 1+; Schistocytes RARE
[2024-04-25 04:39] LABS: Target Cells RARE
[2024-04-25 05:13] LABS: ALB/GLOB Ratio 0.7 RATIO (0.9-2.4); AST(SGOT) 13 U/L (15-37); Alanine Aminotransfer ALT/SGPT 18 U/L (16-61); Albumin, Serum 2.8 g/dL (3.2-5.0); Alkaline Phosphatase 69 U/L (45-117); Anion Gap 8 (5-15); BUN 30 mg/dL (7-18); BUN/Creat Ratio 26.3 RATIO (10-20); Calcium,Total 8.5 mg/dL (8.5-10.1); Chloride 103 mmol/L (98-107); Cholesterol 127 mg/dL (200); Creatinine, Serum 1.14 mg/dL (0.70-1.30); EST Glomerular Filtration Rate 70 mL/min (>60); Est Glom Filt Rate - Afr Amer 84 mL/min (>60); Estimated Creatinine Clearance 94.76 ml/min; Glucose 172 mg/dL (74-106); High Density Lipoprotein 38 mg/dL; Potassium 3.7 mmol/L (3.5-5.1); Protein, Total 6.8 g/dL (6.4-8.2); Sodium Level 137 mmol/L (136-145); Triglycerides 216 mg/dL; Very Low Density Lipoprotein 43 mg/dL (5-40)
[2024-04-25 05:15] VITALS: BMI 44.6
[2024-04-25 06:00] VITALS: BP 124/72; PULSE 73; RESP 18; TEMP 36.8; O2SAT 98
[2024-04-25] MEDS: Levothyroxine 112 MCG Tablet PO (06:20)
[2024-04-25] MEDS: busPIRone 5 MG Tablet 10 MG PO ×2 (06:20→15:03)
[2024-04-25] MEDS: Insulin Lispro 100 UNIT/ML INSULN.PEN SC ×2 (06:28→12:04)
[2024-04-25 07:00] LABS: Bedside Glucose 160 mg/dL (74-106)
[2024-04-25 07:21] VITALS: O2SAT 95
--- NOTE | 2024-04-25 08:00 | MRI_ITS ---
STUDY: MRI BRAIN WITHOUT CONTRAST REASON FOR EXAM: Male, 58 years old. CVA TECHNIQUE: Multiplanar multisequence imaging of the brain was performed without the administration of intravenous contrast. COMPARISON: Noncontrast head CT 04/24/2024 FINDINGS: The ventricles, cisterns, and sulci are prominent consistent with age-related volume loss. There is no restricted diffusion to suggest acute ischemia or infarction. No succeptibility artifict to suggest intracranial hemorrhage or mineralization. Major intracranial signal voids are preserved. There is high T2/FLAIR signal seen in the periventricular deep white matter. There is no midline shift, mass effect, or extra axial fluid collections are seen. No CP angle or IAC mass is seen. The orbits are unremarkable. The sella turcica and craniovertebral junction are within normal limits. Mucous retention cyst left maxillary sinus. The mastoid air cells are clear. MRI/Brain without Contrast IMPRESSION: Chronic microvascular ischemic changes. No intracranial hemorrhage, acute infarct, or space occupying lesion seen on this noncontrast MRI of the brain. Electronically Signed: Lul Burt MD at 17:08 EST ,
--- NOTE | 2024-04-25 08:40 | STROKE.CONS ---
Assessment and Plan: Stroke Assessment/Plan KRUNAL LEOS is a 58 M with a history of resents with BPH with obstructive pathology, KIANNA on BiPAP nightly, ILD w/ Chronic Hypoxic Respiratory Failure 4L NC, HTN, HLD, PAF, HFpEF, CKD stage II, Chronic anemia/Fe deficiency anemia, Hodgkin's lymphoma, Diabetes mellitus type II with chronic neuropathy, Hypothyroidism, Anxiety and Depression, Hx CVA w/ notable carotid disease. Noticed to have left facial droop, left upper extremity weakness that has resolved. Not a TNK or thrombectomy candidate. Likely had a TIA - possible risk factors - Afib, R MCA stenosis, bilateral ICA disease. Per patient he is on Eliquis, ASA, plavix at home Neurological examination shows in intact examination. Neuroimaging shows CT of the head with atrophy and moderate periventricular white matter ischemic changes with an old lacunar infarct in the right caudate nucleus CTA head and neck with sclerotic changes in the brain with most severe involvement of the proximal M1 segment of the right middle cerebral artery which is severely diffusely narrowed, advanced atherosclerotic disease of the neck with high-grade stenosis of the carotid bulb and origin of the internal carotids bilaterally slightly worse on the right due to extensive calcific plaque and radiology eventually able to make a comparison from September 2023 imaging noted the disease did appear more extensive than previously. MRI Brain: Negative DWI LDL: 46 HbA1c: 7.3 Plan Continue Eliquis, ASA Plavix. Continue Statin Control of stroke risk factors F/up with Neurology and vascular surgery as out patient Thanks for consult. Spent 70 minutes in evaluation and management of the patient. HPI Consult Data Date of Consult: 04/25/24 HPI Narrative HPI Narrative: KRUNAL LEOS, is a 58 M who presents with BPH with obstructive pathology, KIANNA on BiPAP nightly, ILD w/ Chronic Hypoxic Respiratory Failure 4L NC, HTN, HLD, PAF, HFpEF, CKD stage II, Chronic anemia/Fe deficiency anemia, Hodgkin's lymphoma, Diabetes mellitus type II with chronic neuropathy, Hypothyroidism, Anxiety and Depression, Hx CVA w/ notable carotid disease following with neurology and vascular surgery at [facility] with planned upcoming intervention for possible carotid arterectomy in the next 1 to 2 weeks, recently discharged 04/15/2024 He presents to the [facility] ED on 04/24/24 with 30 seconds left-sided weakness that was transient with following this continued intermittent stuttering symptoms including left-sided facial droop and left upper extremity weakness however they also reported that the evening prior he had did have slight worsening of the left-sided facial droop. He was last known absolute well previous baseline 6 PM on 04/23/2024. In the ED patient's initial NIH stroke score 2. Stroke evaluation was initiated. Not a TNK or thrombectomy candidate. he is back to baseline. His symptoms lasted for about 1 hour. He is compliant with his medication. CT of the head with atrophy and moderate periventricular white matter ischemic changes with an old lacunar infarct in the right caudate nucleus CTA head and neck with sclerotic changes in the brain with most severe involvement of the proximal M1 segment of the right middle cerebral artery which is severely diffusely narrowed, advanced atherosclerotic disease of the neck with high-grade stenosis of the carotid bulb and origin of the internal carotids bilaterally slightly worse on the right due to extensive calcific plaque and radiology eventually able to make a comparison from September 2023 imaging noted the disease did appear more extensive than previously. [facility] Medical History CHF (congestive heart failure) Chronic respiratory failure with hypoxia KIANNA (obstructive sleep apnea) Presence of insulin pump CKD (chronic kidney disease) Hypothyroidism Essential (primary) hypertension Diabetes Acute hypoxemic respiratory failure Chronic diastolic CHF (congestive heart failure) Obesity Exertional shortness of breath Iron deficiency anemia due to chronic blood loss Current use of chcf anticoagulation Morbid obesity with BMI of 45.0-49.9, adult Atherosclerotic heart disease of [place] coronary artery without angina pectoris Mini stroke (~10/01/23) Peripheral vestibulopathy Ischemic cerebrovascular accident (CVA) Cranial nerve disorder Polyneuropathy Wears glasses Depression Anxiety Cancer Thyroid disease Insulin dependent diabetes mellitus Arthritis History of renal disease Prostate disease Gastric reflux CPAP (continuous positive airway pressure) dependence Sleep apnea Shortness of breath on exertion History of echocardiogram History of stress test History of CHF (congestive heart failure) Cardiology follow-up encounter History of atrial fibrillation Neuropathy Multiple thyroid nodules Microalbuminuria Thyroid nodule Double vision Non-proliferative diabetic retinopathy KIANNA treated with BiPAP Vertigo Congestive heart failure (CHF) Low testosterone Carotid stenosis High cholesterol Vision loss of right eye Vision loss of left eye Anemia Non-smoker Atrial fibrillation Hypertension Paroxysmal atrial fibrillation Polyneuropathy due to type 2 diabetes mellitus History of non-ST elevation myocardial infarction (NSTEMI) (03/28/20) TIA (transient ischemic attack) (2019) Hodgkin disease GERD (gastroesophageal reflux disease) BPH (benign prostatic hyperplasia) Anxiety and depression Morbid obesity with BMI of 45.0-49.9, adult Nephrolithiasis Hyperlipidemia Diabetes mellitus, type II Home Medications ?Medication ?Instructions ?Recorded ?Last Taken ?Type tamsulosin 0.4 mg capsule 0.4 mg PO DAILY prostate 09/08/15 11/16/23 History buspirone 10 mg tablet 10 mg PO TID Anxiety 04/17/18 04/24/24 08:09 History duloxetine 60 mg capsule,delayed 60 mg PO DAILY depression 04/17/18 04/24/24 08:10 History release (Cymbalta) 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 meter,continuous #1 ea 07/26/20 Unknown Rx (Dexcom G6 [employer]) pen needle, diabetic 31 gauge x #1,200 ea 12/22/20 Unknown History 08/14 pen needle, diabetic 32 gauge x #150 ea 06/01/21 Unknown Rx / (BD Ultra-Fine Kiki Pen Needle) atorvastatin 80 mg tablet (Lipitor) 80 mg PO QHS cholesterol 09/04/21 04/23/24 20:09 History 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 transmitter (Dexcom #1 ea 12/29/21 Unknown Rx G6 Transmitter device) infusion set for insulin pump 10/08/22 Unknown History insulin pump controller 10/08/22 Unknown History hydrocodone-acetaminophen 5-325mg 1 tab PO BID PRN pain 02/14/23 11/16/23 History 5mg-325mg 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 sensor (Dexcom G6 #1 ea 02/25/23 Unknown Rx Sensor device) apixaban 5 mg tablet (Eliquis) 5 mg PO BID blood thinner #180 tabs 07/21/23 04/24/24 08:09 Rx insulin regular hum U-500 conc 500 75 unit (0.15 mL) continuous 11/11/23 11/16/23 Rx unit/mL subcutaneous soln (Humulin subcutaneous infusion DAILY blood R U-500 (Concentrated) Insulin) sugar #20 mL empagliflozin 25 mg tablet 25 mg PO DAILY diabetes #30 tabs 11/27/23 04/24/24 08:10 Rx (Jardiance) clopidogrel 75 mg tablet (Plavix) 75 mg PO DAILY anti platelet 21 12/06/23 04/24/24 08:10 Rx days #30 tabs albuterol sulfate 90 mcg/actuation 2 puff inhalation Q4H PRN 02/06/24 Unknown Rx aerosol inhaler (Ventolin HFA) shortness of breath or wheezing #18 grams fenofibrate 54 mg tablet 54 mg PO DAILY cholesterol #30 tabs 02/23/24 04/23/24 20:00 Rx ferrous sulfate 325 mg (65 mg 325 mg PO DAILY anemia 03/02/24 04/24/24 08:00 History iron) tablet (Feosol) amlodipine 5 mg tablet 5 mg PO QDAY blood pressure 03/13/24 04/24/24 08:08 History aspirin 325 mg tablet 325 mg PO DAILY heart health 03/13/24 04/24/24 08:00 History glimepiride 4 mg tablet 4 mg PO QAM diabetes 03/13/24 04/24/24 08:11 History metoprolol succinate 100 mg 100 mg PO DAILY heart #90 tabs 03/27/24 04/24/24 08:00 Rx tablet,extended release 24 hr lisinopril 40 mg tablet 40 mg PO DAILY blood pressure 04/12/24 04/24/24 08:00 History pantoprazole 40 mg tablet,delayed 40 mg PO DAILY acid reflux 04/12/24 04/24/24 08:12 History release (Protonix) spironolactone 50 mg tablet 50 mg PO DAILY water pill 04/12/24 Unknown History prednisone 20 mg tablet 40 mg (2 x 20 mg) PO DAILY 04/15/24 04/24/24 08:00 Rx idiopathic chronic fibrusion 5 days #10 tabs nintedanib 150 mg capsule (Ofev) 150 mg PO Q12H #60 caps 04/22/24 Unknown Rx dextromethorphan-guaifenesin ER 60 1 tab PO DAILY cough 04/24/24 04/24/24 08:10 History mg-1,200 mg tab,extend release,12hr furosemide 40 mg tablet (Lasix) 40 mg PO BID diuretic 04/24/24 04/24/24 08:10 History levothyroxine 112 mcg tablet 112 mcg PO DAILY thyr 04/24/24 04/24/24 08:00 History Allergy/AdvReac Type Severity Reaction Status Date / Time metoclopramide HCl (From Allergy Severe Anaphylaxis Verified 04/24/24 15:07 Reglan) Family History Brother Heart disease Mother CVA (cerebral vascular accident) Hypertension Rheumatoid arthritis Father Diabetes Other Alcohol abuse ulcer disease Surgical History History of cardiac catheterization History of lymph node excision History of left heart catheterization (2009) Hx of nephrolithotomy with removal of calculi History of thoracentesis (2015) Social History household members: spouse and none Smoking Status: Never smoker Electronic Cigarette Use: not used second hand exposure: No alcohol intake: never substance use type: does not use what type of physical activity do you participate in: none Vital Signs Vital Signs Vital Signs: 04/24/24 15:07 04/24/24 16:06 04/24/24 16:19 Temperature 96.9 F L Temperature Source Temporal Pulse Rate 88 75 Pulse Strength Respiratory Rate 25 H 18 Respiratory Effort Respiratory Depth Respiratory Pattern Blood Pressure 88/52 L 102/55 L Blood Pressure Mean 64 70 Blood Pressure Source Blood Pressure Position Blood Pressure Location Pulse Ox 97 98 Oxygen Delivery Method Nasal Cannula Nasal Cannula Room Air Oxygen Flow Rate (L/min) 4 4 04/24/24 16:19 04/24/24 16:49 04/24/24 17:57 Temperature Temperature Source Pulse Rate 74 74 77 Pulse Strength Respiratory Rate 22 H 18 18 Respiratory Effort Respiratory Depth Respiratory Pattern Blood Pressure 116/63 121/65 H 130/64 H Blood Pressure Mean 80 83 86 Blood Pressure Source Blood Pressure Position Blood Pressure Location Pulse Ox 100 100 100 Oxygen Delivery Method Nasal Cannula Nasal Cannula Nasal Cannula Oxygen Flow Rate (L/min) 4 4 4 04/24/24 19:00 04/24/24 20:00 04/24/24 20:58 Temperature 97.9 F Temperature Source Pulse Rate 70 72 72 Pulse Strength Respiratory Rate 18 20 H 18 Respiratory Effort Respiratory Depth Respiratory Pattern Blood Pressure 114/92 H 167/84 H 153/77 H Blood Pressure Mean 99 111 102 Blood Pressure Source Blood Pressure Position Blood Pressure Location Pulse Ox 100 100 100 Oxygen Delivery Method Nasal Cannula Nasal Cannula Oxygen Flow Rate (L/min) 4 4 04/24/24 21:00 04/24/24 21:30 04/24/24 22:00 Temperature 98.2 F Temperature Source Oral Pulse Rate 71 69 Pulse Strength Normal (2+) Respiratory Rate 18 18 Respiratory Effort Respiratory Depth Respiratory Pattern Blood Pressure 153/77 H 152/63 H Blood Pressure Mean 102 92 Blood Pressure Source Monitor Blood Pressure Position Semi-Fowlers Blood Pressure Location Right Arm Pulse Ox 100 100 Oxygen Delivery Method Nasal Cannula Nasal Cannula Oxygen Flow Rate (L/min) 4 4 04/24/24 22:00 04/24/24 23:25 04/25/24 02:00 Temperature 98.1 F Temperature Source Oral Pulse Rate 73 Pulse Strength Respiratory Rate 18 Respiratory Effort Normal Non-Labored Respiratory Depth Normal Respiratory Pattern Normal Blood Pressure 130/72 H Blood Pressure Mean 91 Blood Pressure Source Monitor Blood Pressure Position Semi-Fowlers Blood Pressure Location Right Arm Pulse Ox 93 99 Oxygen Delivery Method Nasal Cannula Nasal Cannula Nasal Cannula Oxygen Flow Rate (L/min) 4 4 4 04/25/24 03:28 04/25/24 06:00 Temperature 98.2 F Temperature Source Oral Pulse Rate 73 Pulse Strength Respiratory Rate 18 Respiratory Effort Normal Non-Labored Respiratory Depth Normal Respiratory Pattern Normal Blood Pressure 124/72 H Blood Pressure Mean 89 Blood Pressure Source Monitor Blood Pressure Position Semi-Fowlers Blood Pressure Location Right Arm Pulse Ox 98 Oxygen Delivery Method Nasal Cannula Nasal Cannula Oxygen Flow Rate (L/min) 4 4 Weight Weight: 137.1 kg Body Mass Index (BMI) 44.6 EEG Results Procedure Details EEG Procedure Details: KRUNAL LEOS is a 58 year old M with a past medical history of , who presents for evaluation of Electroencephalogram on DATE at TIME NIHSS NIHSS Nursing Documentation NIHSS Nursing Documentation: NIH Stroke Scale Start: 04/24/24 15:14 Freq: Status: Discharge Protocol: Activity Type Activity Date Activity User E-sign Co-sign Detail Recorded Client Recorded Date Recorded By Document 04/24/24 15:21 [id number] 04/24/24 15:21 04/24/24 15:21 NIH Stroke Scale [NIHSS] A score of 0 is normal or asymptomatic . Total possible score is 42. Inpatient: RN or Physician to activate a stroke alert for onset of new stroke symptoms or with NIHSS increase >/= 3 points. Following change in neurological status, NIHSS will be performed per physician order or more frequently PRN. -1a. Level of Consciousness Alert; keenly responsive -1b. LOC Questions Answers BOTH questions correctly. -1c. LOC Commands Performs both tasks correctly . -2. Best Gaze Normal -3. Visual No visual loss -4. Facial Palsy Minor paralysis (flattened nasolabial fold , asymmetry on smiling) -5a. Left Arm No drift; arm holds 90 (or 45 ) degrees for full 10 seconds -5b. Right Arm No drift; arm holds 90 (or 45 ) degrees for full 10 seconds -6a. Left Leg No drift; leg holds 30-degree position for full 5 seconds -6b. Right Leg No drift; leg holds 30-degree position for full 5 seconds -7. Limb Ataxia Absent -8. Sensory Normal; no sensory loss -9. Best Language No aphasia; normal -10. Dysarthria Normal -11. Extinction and Inattention No abnormality -Total 1 Query Text:A score of 0 is normal or asymptomatic. Total possible score is 42 . ED: Notify Physician for NIHSS increase by > / = 3 points. Inpatient: RN or Physician to activate a stroke alert for NIHSS increase of > / = 3 points. NIHSS: Ischemic Stroke/TIA Start: 04/24/24 21:37 Text: For PCU Patients: NIH and Neuro Check every 4 Status: Active hours, PRN and with change in RN caregiver. Freq: [id number] Protocol: Activity Type Activity Date Activity User E-sign Co-sign Detail Recorded Client Recorded Date Recorded By Document 04/25/24 06:00 ADR [id number] 04/25/24 06:56 ADR 04/25/24 06:00 -1a. Level of Consciousness Alert; keenly responsive -1b. LOC Questions Answers BOTH questions correctly. -1c. LOC Commands Performs both tasks correctly . -2. Best Gaze Normal -3. Visual No visual loss -4. Facial Palsy Normal symmetrical movements -5a. Left Arm No drift; arm holds 90 (or 45 ) degrees for full 10 seconds -5b. Right Arm No drift; arm holds 90 (or 45 ) degrees for full 10 seconds -6a. Left Leg No drift; leg holds 30-degree position for full 5 seconds -6b. Right Leg No drift; leg holds 30-degree position for full 5 seconds -7. Limb Ataxia Absent -8. Sensory Normal; no sensory loss -9. Best Language No aphasia; normal -10. Dysarthria Normal -11. Extinction and Inattention No abnormality -Total 0 Query Text:A score of 0 is normal or asymptomatic. Total possible score is 42 . ED: Notify Physician for NIHSS increase by > / = 3 points. Inpatient: RN or Physician to activate a stroke alert for NIHSS increase of > / = 3 points. Coma Scale [Assess] -Eye Opening Spontaneous -Motor Obeys Commands -Verbal Oriented [Total] -Coma Scale Total 15 NIHSS 1a. Level of Consciousness: Alert; keenly responsive 1b. LOC Questions: Answers BOTH questions correctly. 1c. LOC Commands: Performs both tasks correctly. 2. Best Gaze: Normal 3. Visual: No visual loss 4. Facial Palsy: Normal symmetrical movements 5a. Left Arm: No drift; arm holds 90 (or 45) degrees for full 10 seconds 5b. Right Arm: No drift; arm holds 90 (or 45) degrees for full 10 seconds 6a. Left Leg: No drift; leg holds 30-degree position for full 5 seconds 6b. Right Leg: No drift; leg holds 30-degree position for full 5 seconds 7. Limb Ataxia: Absent 8. Sensory: Normal; no sensory loss 9. Best Language: No aphasia; normal 10. Dysarthria: Normal 11. Extinction and Inattention: No abnormality Total: 0 Physical Exam Const Orientation / Consciousness: awake, oriented to person and oriented to place Eyes EOMs intact bilaterally Resp normal respiratory effort Neuro Neuro Narrative: Awake, alert No aphasia or dysarthria Cranial nerves 2-12 intact Motor power 5/5 Sensation: Intact No ataxia Lab / Micro Data 04/25/24 03:47 04/25/24 03:47 Labs: Laboratory Results - last 24 hr 04/24/24 15:50: WBC 13.7 H, RBC 4.06 L, Hgb 9.0 L, Hct 31.0 L, MCV 76.4 L, MCH 22.2 L, MCHC 29.0 L D, RDW Std Deviation 54.7 H, RDW Coeff of Gavi 20.3 H, Plt Count 323, MPV 10.2, Immature Gran % (Auto) 0.900, Neut % (Auto) 71.6 H, Lymph % (Auto) 13.9 L, [place] % (Auto) 10.5 H, Eos % (Auto) 2.6, Baso % (Auto) 0.5, Absolute Neuts (auto) 9.8 H, Absolute Lymphs (auto) 1.90, Nucleated RBC % 0, Platelet Estimate ADEQUATE, RBC Morphology N CHROM, Hypochromasia 1+, Anisocytosis 1+, Microcytosis 1+, Ovalocytes 1+, PT 14.4, INR 1.1, APTT 24.8, Sodium 139, Potassium 4.2, Chloride 106, Carbon Dioxide 27.0, Anion Gap 6, BUN 37 H, Creatinine 1.30, Estim Creat Clear Calc 84.56, Est GFR (MDRD) Af Amer 72, Est GFR (MDRD) Non-Af 60, BUN/Creatinine Ratio 28.5 H, Glucose 81, Calcium 8.9, Magnesium 2.1, Troponin I High Sens 190 H* 04/24/24 21:51: Troponin I High Sens 106 H 04/24/24 23:35: Troponin I High Sens 103 H 04/25/24 00:25: POC Glucose 249 H 04/25/24 03:47: WBC 12.5 H, RBC 3.88 L, Hgb 8.6 L, Hct 29.2 L, MCV 75.3 L, MCH 22.2 L, MCHC 29.5 L, RDW Std Deviation 54.5 H, RDW Coeff of Gavi 20.5 H, Plt Count 300, MPV 9.7, Immature Gran % (Auto) 0.600, Neut % (Auto) 71.6 H, Lymph % (Auto) 14.4 L, Ed[place]on % (Auto) 9.8, Eos % (Auto) 3.1, Baso % (Auto) 0.5, Absolute Neuts (auto) 8.9 H, Absolute Lymphs (auto) 1.80, Nucleated RBC % 0, Differential Comment SCANNED, Polychromasia RARE, Microcytosis 1+, Target Cells RARE, Schistocytes RARE, Sodium 137, Potassium 3.7, Chloride 103, Carbon Dioxide 26.0, Anion Gap 8, BUN 30 H, Creatinine 1.14, Estim Creat Clear Calc 94.76, Est GFR (MDRD) Af Amer 84, Est GFR (MDRD) Non-Af 70, BUN/Creatinine Ratio 26.3 H, Glucose 172 H, Calcium 8.5, Total Bilirubin 0.60, AST 13 L, ALT 18, Alkaline Phosphatase 69, Troponin I High Sens 76, Total Protein 6.8, Albumin 2.8 L, Globulin 4.0, Albumin/Globulin Ratio 0.7 L, Triglycerides 216 H, Cholesterol 127, LDL Cholesterol 46, VLDL Cholesterol 43 H, HDL Cholesterol 38 L, TSH 5.220 H 04/25/24 06:24: POC Glucose 160 H Imaging Radiology Impression Brain CT 04/24/24 16:19 IMPRESSION: Atrophy and moderate periventricular white matter ischemic changes.. No acute bleed Old lacunar infarct in right caudate nucleus. If concern for acute infarct MRI recommended Electronically Signed: Sameer Aparicio MD at 16:47 EST , ADDENDUM: 04/24/24 1656 IMPRESSION: Atrophy and moderate periventricular white matter ischemic changes.. No acute bleed Old lacunar infarct in right caudate nucleus. If concern for acute infarct MRI recommended N.B. : The above Results were Read Back by Sameer Aparicio MD to Daniel Mcneil DO, and understanding confirmed on 04/24/2024 16:50:04 (ET). Electronically Signed: Sameer Aparicio MD at 16:47 EST Reading Location ID and State: [facility] / [place] Tel [phone], Service support , ADDENDUM: 04/24/24 1700 IMPRESSION: Atrophy and moderate periventricular white matter ischemic changes.. No acute bleed Old lacunar infarct in right caudate nucleus. If concern for acute infarct MRI recommended N.B. : The above Results were Read Back by Sameer Aparicio MD to Daniel Mcneil DO, and understanding confirmed on 04/24/2024 16:53:15 (ET). Electronically Signed: Sameer Aparicio MD at 16:47 EST , Head/Neck CTA 04/24/24 16:20 IMPRESSION: Atherosclerotic changes in the brain with most severe involvement of the proximal M1 segment of the right middle cerebral artery which is severely diffusely narrowed Advanced atherosclerotic disease of the neck with high-grade stenosis of the carotid bulb and origin of the internal carotids bilaterally slightly worse on the right due to extensive calcific plaque . Electronically Signed: Sameer pAaricio MD at 17:03 EST , ADDENDUM: 04/24/24 1719 IMPRESSION: Atherosclerotic changes in the brain with most severe involvement of the proximal M1 segment of the right middle cerebral artery which is severely diffusely narrowed Advanced atherosclerotic disease of the neck with high-grade stenosis of the carotid bulb and origin of the internal carotids bilaterally slightly worse on the right due to extensive calcific plaque . N.B. : The above Results were Read Back by Sameer Aparicio MD to Daniel Mcneil DO, and understanding confirmed on 04/24/2024 17:12:28 (ET). Electronically Signed: Sameer Aparicio MD at 17:03 EST Reading Location ID and State: [address] [place] [address] Tel [phone], Service support , ADDENDUM: 04/24/24 1747 IMPRESSION: undefined Chest X-Ray 04/24/24 16:38 IMPRESSION: Severe diffuse interstitial and emphysematous changes. Status post clearing of previously noted right lower lobe infiltrate Electronically Signed: Sameer Aparicio MD at 17:43 EST Reading Location ID and State: [facility] / [place] Tel [phone], Service support , KUB X-Ray 04/24/24 19:48 IMPRESSION: Nonspecific abdomen Electronically Signed: Sameer Aparicio MD at 20:12 EST , Active Medications Active Medications Active Medications: Current Medications Generic Name Dose Route Start Last Admin Trade Name Freq PRN Reason Stop Dose Admin Acetaminophen 650 mg 04/24/24 21:37 Acetaminophen 325 Mg Tablet PO Q4H PRN PRN Fever, pain 1-10/10 Hydrocodone Bitart/Acetaminophen 1 tablet 04/24/24 21:37 Hydrocodone Bitartrate/Apap 5/325 Tablet PO BID PRN PRN Pain Score 4-10 Al Hydroxide/Mg Hydroxide 30 ml 04/24/24 21:37 Mag Hydrox/Al Hydrox/Simeth 30 Ml Udc PO Q6H PRN PRN Gastric Burning Albuterol Sulfate 2.5 mg 04/24/24 21:37 Albuterol 2.5 Mg/3 Ml Vial.Neb. INHALATION Q2H PRN PRN Dyspnea, wheezing Apixaban 5 mg 04/24/24 22:00 04/24/24 22:53 Apixaban 5 Mg Tablet PO 5 mg BID [facility] Administration Aspirin 325 mg 04/25/24 08:00 Asp[facility]in 325 Mg [facility] Atorvastatin Calcium 80 mg 04/24/24 22:00 04/24/24 22:53 Atorvastatin Calcium 80 Mg Tablet PO 80 mg QHS [facility] Administration Buspirone HCl 10 mg 04/24/24 22:00 04/25/24 06:20 Buspirone 5 Mg Tablet PO 10 mg TID [facility] Administration Clopidogrel Bisulfate 75 mg 04/25/24 10:00 Clopidogrel Bisulfate 75 Mg Tablet PO DAILY [facility] Duloxetine HCl 60 mg 04/25/24 10:00 Duloxetine Hcl 60 Mg Capsule PO DAILY [facility] Fenofibrate 48 mg 04/25/24 22:00 Fenofibrate 48 Mg Tablet PO QHS [facility] Ferrous Sulfate 325 mg 04/25/24 12:00 Ferrous Sulfate 325 Mg Tablet PO DAILY@1200 [facility] Glucagon 1 mg 04/24/24 21:37 Glucagon 1 Mg/Ml Syringe IM X1 PRN Hypoglycemia Protocol Glucagon 1 mg 04/24/24 21:37 Glucagon 1 Mg/Ml Syringe IM X1 PRN HYPOGLYCEMIA Protocol Guaifenesin 2 tablet 04/25/24 10:00 Guaifenesin/D-Methorphan Tab.Sr.12h PO DAILY [facility] Guaifenesin 20 ml 04/24/24 21:37 Guaifenesin 10 Ml Udc (200mg/10ml) PO Q4H PRN PRN COUGH Hydralazine HCl 5 mg 04/24/24 21:37 Hydralazine 20 Mg/Ml Vial IV 04/25/24 21:37 Q30M PRN maintain BP parameters with HR <60 Sodium Chloride 100 mls @ 15 mls/hr 04/24/24 21:19 IV .Q6H40M PRN Saline Flush Sodium Chloride 100 mls @ 15 mls/hr 04/24/24 21:19 IV .Q6H40M PRN Additional IVPB Infusion Dextrose 250 mls @ 0 mls/hr 04/24/24 21:37 Dextrose 10%-Water IV .Q0M PRN HYPOGLYCEMIA Protocol As Directed Dextrose 250 mls @ 0 mls/hr 04/24/24 21:37 Dextrose 10%-Water IV .Q0M PRN HYPOGLYCEMIA Protocol As Directed Insulin Glargine 15 unit 04/25/24 10:00 04/25/24 00:55 Insulin Glargine-Yfgn 100 Unit/Ml Pen SC 15 unit BID [facility] Administration Insulin Human Lispro 0 unit 04/25/24 07:00 04/25/24 06:28 Insulin Lispro 100 Unit/Ml Insuln.Pen SC 1 u ACHS [facility] Administration Protocol Labetalol HCl 10 - 20 mg 04/24/24 21:37 Labetalol 20mg/4ml Syringe IV 04/25/24 21:37 Q10M PRN PRN maintain BP parameters with HR >/=60 Levothyroxine Sodium 112 mcg 04/25/24 06:00 04/25/24 06:20 Levothyroxine 112 Mcg Tablet PO 112 mcg DAILY@0600 ALTA Administration Melatonin 3 mg 04/24/24 21:37 04/24/24 23:31 Melatonin 3 Mg Tablet PO 3 mg QHS PRN PRN Administration INSOMNIA Ondansetron HCl 4 mg 04/24/24 21:37 Ondansetron 4 Mg/2 Ml Vial IV Q8H PRN PRN NAUSEA/VOMITING Pantoprazole Sodium 40 mg 04/25/24 10:00 Pantoprazole Sodium 40 Mg Tablet PO DAILY ALTA Prochlorperazine Edisylate 5 mg 04/24/24 21:37 Prochlorperazine 10 Mg/2 Ml Vial IV Q4H PRN PRN Breakthrough Nausea/Vomiting Senna/Docusate Sodium 2 tablet 04/24/24 21:37 Senna/Docusate Sodium 1 Tablet PO BID PRN PRN Constipation Sodium Chloride 10 - 40 ml 04/24/24 21:19 0.9% Saline Lock 10 Ml Syringe IV UD PRN SALINE FLUSH Tamsulosin HCl 0.4 mg 04/25/24 10:00 Tamsulosin Hcl 0.4 Mg Capsule PO DAILY ALTA
[2024-04-25] MEDS: APIXABAN 5 MG TABLET PO (09:04)
[2024-04-25] MEDS: Pantoprazole Sodium 40 MG Tablet PO (09:04)
[2024-04-25] MEDS: Clopidogrel Bisulfate 75 MG Tablet PO (09:04)
[2024-04-25] MEDS: DULoxetine Hcl 60 MG Capsule PO (09:04)
[2024-04-25] MEDS: Tamsulosin HCl 0.4 MG Capsule PO (09:04)
[2024-04-25] MEDS: guaiFENesin/D-Methorphan TAB.SR.12H 2 TABLET PO (09:04)
[2024-04-25] MEDS: Aspirin 325 MG Tablet PO (09:04)
--- NOTE | 2024-04-25 09:28 | PCM.PN.HOSP ---
Reason for Visit Reason for Visit: Diagnoses Cerebral infarction, unspecified (04/24/24) Subjective Subjective Feels back to baseline. Objective Data Objective Data Vital Signs: Vital Signs Temp Pulse Resp BP Pulse Ox O2 Del Method O2 Flow Rate 36.8 C 73 18 124/72 H 95 Nasal Cannula 4 04/25/24 06:00 04/25/24 06:00 04/25/24 06:00 04/25/24 06:00 04/25/24 07:21 04/25/24 08:55 04/25/24 08:55 Oxygen Flow Rate (L/min) 4 Oxygen Delivery Method Nasal Cannula Weight: 137.1 kg Body Mass Index (BMI) 44.6 Intake & Output: Intake and Output for Last 24 Hours 04/23/24 04/24/24 04/25/24 23:59 23:59 23:59 Intake Total 800 / 800 Balance 800 / 800 Lab / Micro Data 04/25/24 03:47 04/25/24 03:47 Labs: Laboratory Results - last 24 hr 04/24/24 15:50: WBC 13.7 H, RBC 4.06 L, Hgb 9.0 L, Hct 31.0 L, MCV 76.4 L, MCH 22.2 L, MCHC 29.0 L D, RDW Std Deviation 54.7 H, RDW Coeff of Gavi 20.3 H, Plt Count 323, MPV 10.2, Immature Gran % (Auto) 0.900, Neut % (Auto) 71.6 H, Lymph % (Auto) 13.9 L, [place] % (Auto) 10.5 H, Eos % (Auto) 2.6, Baso % (Auto) 0.5, Absolute Neuts (auto) 9.8 H, Absolute Lymphs (auto) 1.90, Nucleated RBC % 0, Platelet Estimate ADEQUATE, RBC Morphology N CHROM, Hypochromasia 1+, Anisocytosis 1+, Microcytosis 1+, Ovalocytes 1+, PT 14.4, INR 1.1, APTT 24.8, Sodium 139, Potassium 4.2, Chloride 106, Carbon Dioxide 27.0, Anion Gap 6, BUN 37 H, Creatinine 1.30, Estim Creat Clear Calc 84.56, Est GFR (MDRD) Af Amer 72, Est GFR (MDRD) Non-Af 60, BUN/Creatinine Ratio 28.5 H, Glucose 81, Calcium 8.9, Magnesium 2.1, Troponin I High Sens 190 H* 04/24/24 21:51: Troponin I High Sens 106 H 04/24/24 23:35: Troponin I High Sens 103 H 04/25/24 00:25: POC Glucose 249 H 04/25/24 03:47: WBC 12.5 H, RBC 3.88 L, Hgb 8.6 L, Hct 29.2 L, MCV 75.3 L, MCH 22.2 L, MCHC 29.5 L, RDW Std Deviation 54.5 H, RDW Coeff of Gavi 20.5 H, Plt Count 300, MPV 9.7, Immature Gran % (Auto) 0.600, Neut % (Auto) 71.6 H, Lymph % (Auto) 14.4 L, [place] % (Auto) 9.8, Eos % (Auto) 3.1, Baso % (Auto) 0.5, Absolute Neuts (auto) 8.9 H, Absolute Lymphs (auto) 1.80, Nucleated RBC % 0, Differential Comment SCANNED, Polychromasia RARE, Microcytosis 1+, Target Cells RARE, Schistocytes RARE, Sodium 137, Potassium 3.7, Chloride 103, Carbon Dioxide 26.0, Anion Gap 8, BUN 30 H, Creatinine 1.14, Estim Creat Clear Calc 94.76, Est GFR (MDRD) Af Amer 84, Est GFR (MDRD) Non-Af 70, BUN/Creatinine Ratio 26.3 H, Glucose 172 H, Calcium 8.5, Total Bilirubin 0.60, AST 13 L, ALT 18, Alkaline Phosphatase 69, Troponin I High Sens 76, Total Protein 6.8, Albumin 2.8 L, Globulin 4.0, Albumin/Globulin Ratio 0.7 L, Triglycerides 216 H, Cholesterol 127, LDL Cholesterol 46, VLDL Cholesterol 43 H, HDL Cholesterol 38 L, TSH 5.220 H 04/25/24 06:24: POC Glucose 160 H Radiography Diagnostic Testing: Radiology Impression Brain CT 04/24/24 16:19 IMPRESSION: Atrophy and moderate periventricular white matter ischemic changes.. No acute bleed Old lacunar infarct in right caudate nucleus. If concern for acute infarct MRI recommended Electronically Signed: Sameer Aparicio MD at 16:47 EST , ADDENDUM: 04/24/24 1656 IMPRESSION: Atrophy and moderate periventricular white matter ischemic changes.. No acute bleed Old lacunar infarct in right caudate nucleus. If concern for acute infarct MRI recommended N.B. : The above Results were Read Back by Sameer Aparicio MD to Daniel Mcneil DO, and understanding confirmed on 04/24/2024 16:50:04 (ET). Electronically Signed: Sameer Aparicio MD at 16:47 EST Reading Location ID and State: [address] [place] [address] Tel [phone], Service support , ADDENDUM: 04/24/24 1700 IMPRESSION: Atrophy and moderate periventricular white matter ischemic changes.. No acute bleed Old lacunar infarct in right caudate nucleus. If concern for acute infarct MRI recommended N.B. : The above Results were Read Back by Sameer Aparicio MD to Daniel Mcneil DO, and understanding confirmed on 04/24/2024 16:53:15 (ET). Electronically Signed: Sameer Aparicio MD at 16:47 EST Reading Location ID and State: [address] [place] [address] Tel [phone], Service support , Head/Neck CTA 04/24/24 16:20 IMPRESSION: Atherosclerotic changes in the brain with most severe involvement of the proximal M1 segment of the right middle cerebral artery which is severely diffusely narrowed Advanced atherosclerotic disease of the neck with high-grade stenosis of the carotid bulb and origin of the internal carotids bilaterally slightly worse on the right due to extensive calcific plaque . Electronically Signed: Sameer Aparicio MD at 17:03 EST Reading Location ID and State: [facility] / [place] Tel [phone], Service support , ADDENDUM: 04/24/24 1719 IMPRESSION: Atherosclerotic changes in the brain with most severe involvement of the proximal M1 segment of the right middle cerebral artery which is severely diffusely narrowed Advanced atherosclerotic disease of the neck with high-grade stenosis of the carotid bulb and origin of the internal carotids bilaterally slightly worse on the right due to extensive calcific plaque . N.B. : The above Results were Read Back by Sameer Aparicio MD to Daniel Mcneil DO, and understanding confirmed on 04/24/2024 17:12:28 (ET). Electronically Signed: Sameer Aparicio MD at 17:03 EST , ADDENDUM: 04/24/24 1747 IMPRESSION: undefined Chest X-Ray 04/24/24 16:38 IMPRESSION: Severe diffuse interstitial and emphysematous changes. Status post clearing of previously noted right lower lobe infiltrate Electronically Signed: Sameer Aparicio MD at 17:43 EST Reading Location ID and State: [facility] / [place] Tel [phone], Service support , KUB X-Ray 04/24/24 19:48 IMPRESSION: Nonspecific abdomen Electronically Signed: Sameer Aparicio MD at 20:12 EST , Physical Exam Const alert and no apparent distress HEENT head/scalp atraumatic Resp normal respiratory effort and no retractions Neuro oriented x3, moves all extremities, no focal motor deficits and no sensory deficits noted Sensorium / Orientation: awake and alert Coordination / Balance: [id number] test normal and [id number] test normal Motor Exam: strength 5/5 throughout Assessment & Plan Assessment/Plan (1) CVA (cerebral vascular accident): PLAN: Left sided weakness. Clopidogrel, ASA, apixaban, atovastatin 80. CTA H+N: athrerosclerotic changes in the brain w most severe proximal M1 Right middle cerebelar artery. High-grade stenosis of the carotid bulb and origine of the internal carotids bilaterally sligtly worse on the right. Echo from 04/14 showed and EF 60%. No need for repeat echo at this time. Luminary read of the MRI of the brain was unremarkable. Official radiology read still pending. Patient's symptoms are back to normal. Continue with his current regimen of clopidogrel, aspirin, apixaban and high intensity atorvastatin. Patient is going to be following up with [facility] this week to see vascular to have a stent placed in his right carotid artery. The surgery is planned for sometime in May. Discussed with the patient is feeling being that his symptoms are back to normal that he will be discharged. Patient advised to return if he has any further symptoms as he is at high risk given his carotid stenosis. PT OT. PLAN: Plan Troponin elevation. Trended down. Likely demand ischemia. Chronic conditions: Diabetes mellitus type II with chronic neuropathy: Hold oral diabetic regimen, clarifying patient insulin pump which we continued with close monitoring of blood sugars with hold as needed, once passes swallow evaluation will allow ADA diet, accu checks w/ ISS. HFpEF: We will continue patient home Eliquis regimen, statin therapy, temporally holding hypertensive regimen for permissive hypertension, judicious hydration if needed given history, add back regimen once clinically appropriate. 04/14/2024 echocardiogram with LV systolic function normal, LVEF 60%, mild to moderate mitral annular calcification, mild concentric LVH, negative bubble study. Hypertension: Given presentation will maintain permissive hypertension. Agents per stroke protocol. Hyperlipidemia: Continue home statin and fenofibrate regimen. AM FLP. Interstitial lung disease with chronic hypoxic respiratory failure 4 L NC: Following with Dr. Rodriguez pulmonary medicine outpatient, encourage continued outpatient follow-up, continue chronic oxygen supplementation. Anxiety and depression: We will continue patient home duloxetine and cautiously BuSpar regimen with hold parameters for sedation. PAF: Temporally holding metoprolol for permissive hypertension, add back once appropriate, continue Eliquis regimen. Hodgkin's lymphoma: Noted to be in remission, encourage continued outpatient follow-up with oncology as previously arranged. Hypothyroidism: Continue home levothyroxine regimen, TSH pending. Chronic Kidney Disease Stage II per GFR trending although has vacillated: Admission BUN/Cr 37/1.30, GFR 60, baseline renal function primarily 0.9-1.3, repeat BMP in AM. Chronic microcytic anemia/iron deficiency anemia: Admission hemoglobin 9.0, MCV 76.4, baseline hemoglobin appears primarily 8-9 range, stable, continue to trend, continue iron supplementation. Noted EGD and colonoscopy 03/27/2024 with single bleeding colonic angiodysplastic lesion treated with a monopolar probe as well as polyps in the ascending colon and hepatic flexure removed with hot snare. Obesity classs III: Weight loss and lifestyle changes encouraged, nutrition consulted. BPH with obstructive pathology: We will continue patient on Flomax regimen. KIANNA: Will maintain on BIPAP nightly. DVT prophylaxis: Continue patient home Eliquis regimen.
[2024-04-25 10:00] VITALS: BP 124/69; PULSE 77; RESP 17; TEMP 36.8; O2SAT 100
[2024-04-25 10:20] LABS: Hemoglobin A1c 7.3 % (3.8-5.6)
[2024-04-25] MEDS: Ferrous Sulfate 325 MG Tablet PO (12:06)
[2024-04-25 12:33] LABS: Bedside Glucose 252 mg/dL (74-106)
[2024-04-25 14:00] VITALS: BP 113/54; PULSE 93; RESP 16; TEMP 36.9; O2SAT 100
--- NOTE | 2024-04-25 14:53 | PCM.DC.SUM ---
Providers Date of Admission: 04/24/24 Primary Care Physician: Dr. Radha Khan MD Consultations 04/24/24 21:37 Consult: Tele-Neurology Routine Consulting Provider: [facility] Reason for Consult: Acute Ischemic Stroke/TIA EMERGENT Consult: No MD Notified: Yes Date Notified: 04/25/24 Time Notified: 05:44 Method of Notification: Answering Service Nursing Unit Staff Notify [facility] of Tele-Neurology Consult: Yes Reason For Visit: CVA, ELEVATED TROPONIN Diagnosis Discharge Diagnosis (1) CVA (cerebral vascular accident): Status: Acute Code(s): I63.9 - Cerebral infarction, unspecified Plan: Left sided weakness. Clopidogrel, ASA, apixaban, atovastatin 80. CTA H+N: athrerosclerotic changes in the brain w most severe proximal M1 Right middle cerebelar artery. High-grade stenosis of the carotid bulb and origine of the internal carotids bilaterally sligtly worse on the right. Echo from 04/14 showed and EF 60%. No need for repeat echo at this time. Luminary read of the MRI of the brain was unremarkable. Official radiology read still pending. Patient's symptoms are back to normal. Continue with his current regimen of clopidogrel, aspirin, apixaban and high intensity atorvastatin. Patient is going to be following up with [facility] this week to see vascular to have a stent placed in his right carotid artery. The surgery is planned for sometime in May. Discussed with the patient is feeling being that his symptoms are back to normal that he will be discharged. Patient advised to return if he has any further symptoms as he is at high risk given his carotid stenosis. PT OT saw the patient and patient is back to his baseline no additional therapy recommended. Patient proved much faster and then initial anticipated upon arrival. Plan Troponin elevation. Trended down. Likely demand ischemia. Chronic conditions: Diabetes mellitus type II with chronic neuropathy: Hold oral diabetic regimen, clarifying patient insulin pump which we continued with close monitoring of blood sugars with hold as needed, once passes swallow evaluation will allow ADA diet, accu checks w/ ISS. HFpEF: We will continue patient home Eliquis regimen, statin therapy, temporally holding hypertensive regimen for permissive hypertension, judicious hydration if needed given history, add back regimen once clinically appropriate. 04/14/2024 echocardiogram with LV systolic function normal, LVEF 60%, mild to moderate mitral annular calcification, mild concentric LVH, negative bubble study. Hypertension: Given presentation will maintain permissive hypertension. Agents per stroke protocol. Hyperlipidemia: Continue home statin and fenofibrate regimen. AM FLP. Interstitial lung disease with chronic hypoxic respiratory failure 4 L NC: Following with Dr. Rodriguez pulmonary medicine outpatient, encourage continued outpatient follow-up, continue chronic oxygen supplementation. Anxiety and depression: We will continue patient home duloxetine and cautiously BuSpar regimen with hold parameters for sedation. PAF: Temporally holding metoprolol for permissive hypertension, add back once appropriate, continue Eliquis regimen. Hodgkin's lymphoma: Noted to be in remission, encourage continued outpatient follow-up with oncology as previously arranged. Hypothyroidism: Continue home levothyroxine regimen, TSH pending. Chronic Kidney Disease Stage II per GFR trending although has vacillated: Admission BUN/Cr 37/1.30, GFR 60, baseline renal function primarily 0.9-1.3, repeat BMP in AM. Chronic microcytic anemia/iron deficiency anemia: Admission hemoglobin 9.0, MCV 76.4, baseline hemoglobin appears primarily 8-9 range, stable, continue to trend, continue iron supplementation. Noted EGD and colonoscopy 03/27/2024 with single bleeding colonic angiodysplastic lesion treated with a monopolar probe as well as polyps in the ascending colon and hepatic flexure removed with hot snare. Obesity classs III: Weight loss and lifestyle changes encouraged, nutrition consulted. BPH with obstructive pathology: We will continue patient on Flomax regimen. KIANNA: Will maintain on BIPAP nightly. DVT prophylaxis: Continue patient home Eliquis regimen. Medications at Discharge Home Medications tamsulosin 0.4 mg capsule 0.4 mg PO DAILY prostate 09/08/15 buspirone 10 mg tablet 10 mg PO TID Anxiety 04/17/18 duloxetine 60 mg capsule,delayed release (Cymbalta) 60 mg PO DAILY depression 04/17/18 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 meter,continuous (Dexcom G6 Licensed Direct Entry Midwife) #1 ea 07/26/20 pen needle, diabetic 31 gauge x 08/14 #1,200 ea 12/22/20 pen needle, diabetic 32 gauge x (BD Ultra-Fine Kiki Pen Needle) #150 ea 06/01/21 atorvastatin 80 mg tablet (Lipitor) 80 mg PO QHS cholesterol 09/04/21 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 transmitter (Dexcom G6 Transmitter device) #1 ea 12/29/21 infusion set for insulin pump 10/08/22 insulin pump controller 10/08/22 hydrocodone-acetaminophen 5-325mg 5mg-325mg 1 tab PO BID PRN pain 02/14/23 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 sensor (Leapfactor G6 Sensor device) #1 ea 02/25/23 apixaban 5 mg tablet (Eliquis) 5 mg PO BID blood thinner #180 tabs 07/21/23 insulin regular hum U-500 conc 500 unit/mL subcutaneous soln (Humulin R U-500 (Concentrated) Insulin) 75 unit (0.15 mL) continuous subcutaneous infusion DAILY blood sugar #20 mL 11/11/23 empagliflozin 25 mg tablet (Jardiance) 25 mg PO DAILY diabetes #30 tabs 11/27/23 clopidogrel 75 mg tablet (Plavix) 75 mg PO DAILY anti platelet 21 days #30 tabs 12/06/23 albuterol sulfate 90 mcg/actuation aerosol inhaler (Ventolin HFA) 2 puff inhalation Q4H PRN shortness of breath or wheezing #18 grams 02/06/24 fenofibrate 54 mg tablet 54 mg PO DAILY cholesterol #30 tabs 02/23/24 ferrous sulfate 325 mg (65 mg iron) tablet (Feosol) 325 mg PO DAILY anemia 03/02/24 amlodipine 5 mg tablet 5 mg PO QDAY blood pressure 03/13/24 aspirin 325 mg tablet 325 mg PO DAILY heart health 03/13/24 glimepiride 4 mg tablet 4 mg PO QAM diabetes 03/13/24 metoprolol succinate 100 mg tablet,extended release 24 hr 100 mg PO DAILY heart #90 tabs 03/27/24 lisinopril 40 mg tablet 40 mg PO DAILY blood pressure 04/12/24 pantoprazole 40 mg tablet,delayed release (Protonix) 40 mg PO DAILY acid reflux 04/12/24 spironolactone 50 mg tablet 50 mg PO DAILY water pill 04/12/24 prednisone 20 mg tablet 40 mg (2 x 20 mg) PO DAILY idiopathic chronic fibrusion 5 days #10 tabs 04/15/24 nintedanib 150 mg capsule (Ofev) 150 mg PO Q12H #60 caps 04/22/24 dextromethorphan-guaifenesin ER 60 mg-1,200 mg tab,extend release,12hr 1 tab PO DAILY cough 04/24/24 furosemide 40 mg tablet (Lasix) 40 mg PO BID diuretic 04/24/24 levothyroxine 112 mcg tablet 112 mcg PO DAILY thyr 04/24/24 Hospital Course Operations None Summary of Care Provided Minutes Spent on Discharge: 32 Weight / BMI Weight Weight: 137.1 kg Body Mass Index (BMI) 44.6 ABG / Lab / Microbiology Data 04/25/24 03:47 04/25/24 03:47 Laboratory: Laboratory Results - last 24 hr 04/24/24 15:50: WBC 13.7 H, RBC 4.06 L, Hgb 9.0 L, Hct 31.0 L, MCV 76.4 L, MCH 22.2 L, MCHC 29.0 L D, RDW Std Deviation 54.7 H, RDW Coeff of Gavi 20.3 H, Plt Count 323, MPV 10.2, Immature Gran % (Auto) 0.900, Neut % (Auto) 71.6 H, Lymph % (Auto) 13.9 L, Calhoun % (Auto) 10.5 H, Eos % (Auto) 2.6, Baso % (Auto) 0.5, Absolute Neuts (auto) 9.8 H, Absolute Lymphs (auto) 1.90, Nucleated RBC % 0, Platelet Estimate ADEQUATE, RBC Morphology N CHROM, Hypochromasia 1+, Anisocytosis 1+, Microcytosis 1+, Ovalocytes 1+, PT 14.4, INR 1.1, APTT 24.8, Sodium 139, Potassium 4.2, Chloride 106, Carbon Dioxide 27.0, Anion Gap 6, BUN 37 H, Creatinine 1.30, Estim Creat Clear Calc 84.56, Est GFR (MDRD) Af Amer 72, Est GFR (MDRD) Non-Af 60, BUN/Creatinine Ratio 28.5 H, Glucose 81, Calcium 8.9, Magnesium 2.1, Troponin I High Sens 190 H* 04/24/24 21:51: Troponin I High Sens 106 H 04/24/24 23:35: Troponin I High Sens 103 H 04/25/24 00:25: POC Glucose 249 H 04/25/24 03:47: WBC 12.5 H, RBC 3.88 L, Hgb 8.6 L, Hct 29.2 L, MCV 75.3 L, MCH 22.2 L, MCHC 29.5 L, RDW Std Deviation 54.5 H, RDW Coeff of Gavi 20.5 H, Plt Count 300, MPV 9.7, Immature Gran % (Auto) 0.600, Neut % (Auto) 71.6 H, Lymph % (Auto) 14.4 L, Calhoun % (Auto) 9.8, Eos % (Auto) 3.1, Baso % (Auto) 0.5, Absolute Neuts (auto) 8.9 H, Absolute Lymphs (auto) 1.80, Nucleated RBC % 0, Differential Comment SCANNED, Polychromasia RARE, Microcytosis 1+, Target Cells RARE, Schistocytes RARE, Sodium 137, Potassium 3.7, Chloride 103, Carbon Dioxide 26.0, Anion Gap 8, BUN 30 H, Creatinine 1.14, Estim Creat Clear Calc 94.76, Est GFR (MDRD) Af Amer 84, Est GFR (MDRD) Non-Af 70, BUN/Creatinine Ratio 26.3 H, Glucose 172 H, Hemoglobin A1c 7.3 H, Calcium 8.5, Total Bilirubin 0.60, AST 13 L, ALT 18, Alkaline Phosphatase 69, Troponin I High Sens 76, Total Protein 6.8, Albumin 2.8 L, Globulin 4.0, Albumin/Globulin Ratio 0.7 L, Triglycerides 216 H, Cholesterol 127, LDL Cholesterol 46, VLDL Cholesterol 43 H, HDL Cholesterol 38 L, TSH 5.220 H 04/25/24 06:24: POC Glucose 160 H 04/25/24 12:01: POC Glucose 252 H Radiography Diagnostic Testing: Radiology Impression Brain CT 04/24/24 16:19 IMPRESSION: Atrophy and moderate periventricular white matter ischemic changes.. No acute bleed Old lacunar infarct in right caudate nucleus. If concern for acute infarct MRI recommended Electronically Signed: Sameer Aparicio MD at 16:47 EST , ADDENDUM: 04/24/24 [id number] IMPRESSION: Atrophy and moderate periventricular white matter ischemic changes.. No acute bleed Old lacunar infarct in right caudate nucleus. If concern for acute infarct MRI recommended N.B. : The above Results were Read Back by Sameer Aparicio MD to Daniel Mcneil DO, and understanding confirmed on 04/24/2024 16:50:04 (ET). Electronically Signed: Sameer Aparicio MD at 16:47 EST Reading Location ID and State: [address] [place] [address] Tel [phone], Service support , ADDENDUM: 04/24/24 1700 IMPRESSION: Atrophy and moderate periventricular white matter ischemic changes.. No acute bleed Old lacunar infarct in right caudate nucleus. If concern for acute infarct MRI recommended N.B. : The above Results were Read Back by Sameer Aparicio MD to Daniel Mcneil DO, and understanding confirmed on 04/24/2024 16:53:15 (ET). Electronically Signed: Sameer Aparicio MD at 16:47 EST Reading Location ID and State: [address] [place] [address] Tel [phone], Service support , Head/Neck CTA 04/24/24 16:20 IMPRESSION: Atherosclerotic changes in the brain with most severe involvement of the proximal M1 segment of the right middle cerebral artery which is severely diffusely narrowed Advanced atherosclerotic disease of the neck with high-grade stenosis of the carotid bulb and origin of the internal carotids bilaterally slightly worse on the right due to extensive calcific plaque . Electronically Signed: Sameer Aparicio MD at 17:03 EST Reading Location ID and State: [facility] / [place] Tel [phone], Service support , ADDENDUM: 04/24/24 1719 IMPRESSION: Atherosclerotic changes in the brain with most severe involvement of the proximal M1 segment of the right middle cerebral artery which is severely diffusely narrowed Advanced atherosclerotic disease of the neck with high-grade stenosis of the carotid bulb and origin of the internal carotids bilaterally slightly worse on the right due to extensive calcific plaque . N.B. : The above Results were Read Back by Sameer Aparicio MD to Daniel Mcneil DO, and understanding confirmed on 04/24/2024 17:12:28 (ET). Electronically Signed: Sameer Aparicio MD at 17:03 EST , ADDENDUM: 04/24/24 [id number] IMPRESSION: undefined Chest X-Ray 04/24/24 16:38 IMPRESSION: Severe diffuse interstitial and emphysematous changes. Status post clearing of previously noted right lower lobe infiltrate Electronically Signed: Sameer Aparicio MD at 17:43 EST , KUB X-Ray 04/24/24 19:48 IMPRESSION: Nonspecific abdomen Electronically Signed: Sameer Aparicio MD at 20:12 EST , D/C Instructions Discharge Diet: Low fat / Low cholesterol DC O2, CPAP, BIPAP Needs Home O2 Discharge instructions: No Meaningful Use Info Meaningful Use Meaningful Use Diagnoses (Choose all that apply): Ischemic CVA CVA Therapy Assessed for PT,OT and/or ST?: Yes Ischemic Stroke Antithrombotic order at d/c?: Yes Dx of Atrial fib/flutter?: Yes Anticoagulant at discharge?: Yes Statin Dosing Therapy Reference: STATIN DOSE THERAPY REFERENCE: * Patients > 75 years receive moderate or high dose statin therapy. * Patients 75 years or YOUNGER should receive HIGH intensity statin dose unless contraindicated. You will be required to document reason for non-treatment if statin daily dose does not meet guidelines. HIGH DOSE STATIN THERAPY DAILY Atorvastatin > than or = to 40 mg Rosuvastatin > than or = to 20 mg Amlodipine + Atorvastatin > than or = to 2.5/40 mg Ezetimibe + Simvastatin 10/80 mg Simvastatin 80mg Statins at discharge?: Yes If patient is 75 or younger, pt will be discharged on HIGH intensity statin.: Yes Primary Dx Acute Ischemic CVA?: Yes IV thrombolytic ordered during stay?: No Reason IV thrombolytic not ordered: Procedure not Indicated Discharge Plan Admission Admit Date/Time: 04/24/24 20:27 Primary Reason for Your Visit: TIA Attending Provider: Ochoa Johnosn Primary Care Provider: Radha Khan Consulting Providers: Edmund Dey; Kristin Boyd; Amy Dumont; Bethany Velasco; Lucy Granado; Giancarlo Lomeli; Patrizia Burk; Alden Lazaro; Cristino Flores; Fred Talbert; Jennifer Toledo; Joao Arredondo; Palak Garvin; Michelle Lyons; Indigo Coates; Lavelle Chakraborty; Rogers Heart; Abrahan Bejarano; Mindy Benítez; Ryan Riley; Cookie Bell Instructions Additional Instructions / Restrictions: Please follow-up with vascular surgery this coming week in the next month to have your carotid surgery. If you do have any further symptoms, such as weakness like this time or trouble speaking, visual changes, notify your physician or return to the emergency room for evaluation. Discharge Orders/Prescriptions Prescriptions: Continued (DME) Dexcom G6 Licensed Direct Entry Midwife Misc See Rx Instructions .ROUTE .MEDSUPPLY Qty: 1 0RF Rx Instructions: As directed (DME) pen needle, diabetic 31 gauge x 5/16 needle See Rx Instructions .ROUTE .MEDSUPPLY Qty: 1200 Patient Comments: use 1 PEN NEEDLE to inject MEDICATION subcutaneously as directed Rx Instructions: As directed (DME) pen needle, diabetic [BD Ultra-Fine Kiki Pen Needle] 32 gauge x 5/32 needle See Rx Instructions .ROUTE .MEDSUPPLY Qty: 150 6RF Rx Instructions: As directed (DME) infusion set for insulin pump Infusion Set See Rx Instructions .Route Rx Instructions: As directed (DME) insulin pump controller Misc See Rx Instructions .Route Rx Instructions: As directed Jardiance 25 mg tablet 25 mg PO DAILY Qty: 30 5RF aspirin 325 mg tablet 325 mg PO DAILY Patient Comments: coated clopidogrel [Plavix] 75 mg tablet 75 mg PO DAILY 21 Days Qty: 30 11RF fenofibrate 54 mg tablet 54 mg PO DAILY Qty: 30 6RF amlodipine 5 mg tablet 5 mg PO QDAY glimepiride 4 mg tablet 4 mg PO QAM Rx Instructions: administer with breakfast Ofev 150 mg capsule 150 mg PO Q12H Qty: 60 11RF tamsulosin 0.4 MG capsule 0.4 mg PO DAILY buspirone 10 MG tablet 10 mg PO TID Rx Instructions: pt states he usually takes 1 daily duloxetine [Cymbalta] 60 MG capsule,delayed release(DR/EC) 60 mg PO DAILY atorvastatin [Lipitor] 80 MG tablet 80 mg PO QHS Rx Instructions: cholesterol hydrocodone-acetaminophen 5-325 mg tablet 1 tab PO BID PRN (Reason: pain) ferrous sulfate [Feosol] 325 mg (65 mg iron) tablet 325 mg PO DAILY pantoprazole [Protonix] 40 mg tablet,delayed release (DR/EC) 40 mg PO DAILY lisinopril 40 mg tablet 40 mg PO DAILY spironolactone 50 mg tablet 50 mg PO DAILY prednisone 20 mg tablet 40 mg PO DAILY 5 Days Qty: 10 0RF Patient Comments: pt. states it was extended from 5 day RX. on 04/15, new Rx. for 10 days picked up 04/24/24 levothyroxine 112 mcg tablet 112 mcg PO DAILY furosemide [Lasix] 40 mg tablet 40 mg PO BID Rx Instructions: Take extra 40 mg dose at 5 PM for increased leg swelling or weight gain 5 pounds in 1 week. dextromethorphan-guaifenesin 60-1,200 mg tablet extended release 12 hr 1 tab PO DAILY (DME) Dexcom G6 Transmitter Device See Rx Instructions .ROUTE .MEDSUPPLY Qty: 1 3RF Rx Instructions: As directed (DME) Dexcom G6 Sensor Device See Rx Instructions .ROUTE .MEDSUPPLY Qty: 1 6RF Rx Instructions: As directed Eliquis 5 mg tablet 5 mg PO BID Qty: 180 3RF Humulin R U-500 (Conc) Insulin 500 unit/mL solution 75 unit continuous subcutaneous infusion DAILY Qty: 20 5RF Patient Comments: INSULIN PUMP; pt. states that he does bolus with meals based on pump's suggested dose; unsure of basal rate; pump is currently broken, to bring in new wiring in AM albuterol sulfate [Ventolin HFA] 90 mcg/actuation HFA aerosol inhaler 2 puff inhalation Q4H PRN (Reason: shortness of breath or wheezing) Qty: 18 6RF metoprolol succinate 100 mg tablet extended release 24 hr 100 mg PO DAILY Qty: 90 3RF Referrals / Follow Up: Radha Khan MD [Primary Care Provider] - Disposition Disposition (needs filled in before D/C Order can be placed): Home, Self Care Charges/Coding Visit Charges Inpatient E&M: 38995 Disch Hosp >30min
--- NOTE | 2024-04-25 15:35 | CASEMGMT ---
Social Work SW met w/pt, PHQ-9 completed. Pt scored a 4. He was diagnosed earlier this week w/lung disease, so has been coping w/this. He also has had 4 TIAs since September, so states concentration and memory have been difficult since then. Pt has depression at his baseline, takes duloxetine and buspirone, states they help. Pt has been in counseling in the past, not at present. Pt is not interested in counseling resources at this time. SW offered support to pt in light of his recent diagnosis and now current hospital stay. SW remains available for support to pt should it be needed. KUNAL Rush
[2024-04-25 15:54] VITALS: BMI 44.6
[2024-04-25 15:55] VITALS: BMI 44.6
--- NOTE | 2024-04-25 15:55 | CASEMGMT ---
CAMILA LUCERO readmission note: Index admission: 04/12-04/15: Dx: CHF. Pulm C/S, IV lasix. Dc'd home on prednisone & O2 @ 4 l/m @ rest, 8 l/m w/exert. Pt to f/u w/pulm OP. Palliative referral was sent. Current admission: Admitted 04/24 w/initial dx of CVA & elevated trop. Pt was @ PCP appt, sent to ED w/stroke symptoms. Pt H/P, pt has carotid disease, follows w/neuro and vasc @ [facility]. Per Dr Johnson note, Patient is going to be following up with [facility] this week to see vascular to have a stent placed in his right carotid artery. The surgery is planned for sometime in May. Discussed with the patient is feeling being that his symptoms are back to normal that he will be discharged. Discharge order is in. CAMILA LUCERO to room to discuss readmission and any discharge needs. Pt resting in bed, and dtr @ bedside. Pt and state pt did get the prednisone @ discharge and taking medications as prescribed. He went to [facility], pulmonology. He did f/u with PCP yesterday, as noted above, and was sent to ED w/stroke symptoms. Pt and state pt has appt with the surgeon @ [facility] on Saturday for upcoming surgery May 06 for right carotid endarterectomy. Per pt and , they have not heard from palliative care yet. Made aware this may take a couple wks for f/u. They were provided w/[facility] contact info. Questions answered re: palliative. They were also provided w/info sheet and voiced appreciation. Pt has been wearing O2 @ home as prescribed. He and deny having needs for further DME and state pt has all medications needed. Pt has a small portable tank in room and states they have a larger tank in their vehicle for pt to go home on. Pt declined the need for therapy (PT/OT), stating he is back @ his baseline. did state pt has been having intermittent difficulty w/his left arm @ sb,e and inquiring if pt should have therapy for this. They have talked to Dr Johnson about this. Questions answered. Pt and decided to wait until he has surgery and if this would continue, they will discuss this with Dr Johnson again. ST eval has been completed and no intervention indicated. Pt, , and daughter deny having any further questions/concerns/needs. Gopal DONNELLYN RN CM
[2024-04-25 16:19] VITALS: BMI 44.6
== END 2024-04-25 16:42 | disposition home or self-care (01) ==
LOC: ED 16:11 → PCU 21:18
PROVIDERS: Admitting Provider Family Medicine; Emergency Provider Emergency Medicine; PCP Family Medicine; Referring Provider Emergency Medicine
DX: I63.511 Cerebral infarction due to unspecified occlusion or stenosis of right middle cerebral artery (principal); J96.11 Chronic respiratory failure with hypoxia; I13.0 Hypertensive heart and chronic kidney disease with heart failure and stage 1 through stage 4 chronic kidney disease, or unspecified chronic kidney disease; I50.32 Chronic diastolic (congestive) heart failure; J84.9 Interstitial pulmonary disease, unspecified; I48.0 Paroxysmal atrial fibrillation; Z68.42 Body mass index [BMI] 45.0-49.9, adult; E66.813 Obesity, class 3; E11.22 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 with diabetic chronic kidney disease; E11.40 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 with diabetic neuropathy, unspecified; Z79.4 Long term (current) use of insulin; N13.8 Other obstructive and reflux uropathy; D50.9 Iron deficiency anemia, unspecified; Z66 Do not resuscitate; E03.9 Hypothyroidism, unspecified; F32.A Depression, unspecified; G47.33 Obstructive sleep apnea (adult) (pediatric); I25.10 Atherosclerotic heart disease of native coronary artery without angina pectoris; F41.9 Anxiety disorder, unspecified; K21.9 Gastro-esophageal reflux disease without esophagitis; E78.00 Pure hypercholesterolemia, unspecified; N18.2 Chronic kidney disease, stage 2 (mild); Z96.41 Presence of insulin pump (external) (internal); R29.702 NIHSS score 2; R29.810 Facial weakness; N40.1 Benign prostatic hyperplasia with lower urinary tract symptoms; Z79.01 Long term (current) use of anticoagulants; Z79.84 Long term (current) use of oral hypoglycemic drugs; Z79.82 Long term (current) use of aspirin; Z79.899 Other long term (current) drug therapy; Z85.71 Personal history of Hodgkin lymphoma; Z79.02 Long term (current) use of antithrombotics/antiplatelets; Z99.81 Dependence on supplemental oxygen; Z87.19 Personal history of other diseases of the digestive system; Z82.49 Family history of ischemic heart disease and other diseases of the circulatory system; Z79.890 Hormone replacement therapy; R29.898 Other symptoms and signs involving the musculoskeletal system; Z82.3 Family history of stroke
CPT/HCPCS: 36415; 70450; 70496; 70498; 70551; 71045; 74018; 80048; 80053; 80061; 82962; 83036; 83735; 84443; 84484; 85025; 85610; 85730; 93005; 94668; 97802; 99221; 99285; Q9967; G0378

== ENCOUNTER → 2024-04-24 | Outpatient (CLI) | payer OTHER, SELFPAY ==
[2024-04-24 17:41] LABS: Absolute Lymphocyte Count 2.02 X10^3/uL (0.83-4.51); Absolute Neutrophil Count 10.1 X10^3/uL (2.0-7.7); Basophil# 0.05 X10^3/uL; Basophil% 0.4 % (0-1); Eosinophil# 0.36 X10^3/uL; Eosinophils% 2.6 % (0-5); Lymphocyte # 2.02 X10^3/ul (0.83-4.51); Lymphocyte % 14.4 % (19-41); Mean Corp Hgb Conc 27.3 g/dL (32-36); Mean Corpuscular Hgb 21.2 pg (27.0-32.0); Mean Corpuscular Volume 77.6 fL (80-94); Mean Platelet Vol. 10.7 fl (6.2-12.0); Monocyte# 1.43 X10^3/uL; Monocyte% 10.2 % (0-10); NRBC Flagged by Analyzer 0 % (0-5); Neutrophil # 10.09 X10^3/uL (2.7-7.7); Neutrophil % 71.7 % (47-70); POSITIVE MORPHOLOGY YES; Platelet Count 361 K/mm3 (150-450); RBC Distribution Width CV 20.5 % (11.6-14.6); RBC Distribution Width SD 56.2 fl (35.1-43.9); RET-HE 26.3 pg (30-35); Red Blood Count 4.25 M/mm3 (4.6-6.2); Reticulocyte Count 1.99 % (0.5-1.5); White Blood Count 14.1 K/mm3 (4.4-11.0)
[2024-04-24 17:46] LABS: Differential Indicated SCAN CRITERIA MET
[2024-04-24 18:23] LABS: Anisocytosis 1+; Hypochromasia 1+; Microcytosis 1+; Ovalocyte 1+; Platelet Estimate ADEQUATE (ADEQ); Red Cell Morphology N CHROM NORMAL (NORM C&C)
[2024-04-24 18:29] LABS: Ferritin 102 ng/mL (26-388); Iron 64 ug/dL (65-175); Iron Binding Capacity,Total 281 ug/dL (250-450); PERCENT IRON SATURATION 22.8 % (15.0-55.0)
[2024-04-27 13:07] LABS: Vitamin B12 572 pg/mL (211-911)
== END | disposition home or self-care (01) ==
LOC: MFPLAB 14:18
PROVIDERS: PCP Family Medicine; Referring Provider Family Medicine; Visit Provider Family Medicine
DX: D64.9 Anemia, unspecified (principal)
CPT/HCPCS: 36415; 82607; 82728; 83540; 83550; 85025; 85045

== ENCOUNTER → 2024-05-21 | Outpatient (CLI) | payer OTHER, SELFPAY ==
[2024-05-21 13:26] LABS: Anion Gap 12 (5-15); BUN 34 mg/dL (7-18); BUN/Creat Ratio 21.2 RATIO (10-20); Calcium,Total 9.6 mg/dL (8.5-10.1); Chloride 99 mmol/L (98-107); EST Glomerular Filtration Rate 47 mL/min (>60); Est Glom Filt Rate - Afr Amer 57 mL/min (>60); Glucose 174 mg/dL (74-106); Potassium 3.8 mmol/L (3.5-5.1); Sodium Level 136 mmol/L (136-145)
[2024-05-21 13:30] LABS: AST(SGOT) 18 U/L (15-37); Alanine Aminotransfer ALT/SGPT 17 U/L (16-61); Albumin, Serum 3.4 g/dL (3.2-5.0); Alkaline Phosphatase 81 U/L (45-117); Bilirubin, Direct 0.32 mg/dL (0.00-0.30); Globulin 5.1 g/dL (2.2-4.2); Protein, Total 8.5 g/dL (6.4-8.2)
== END | disposition home or self-care (01) ==
LOC: LAB 11:59
PROVIDERS: Nurse Practitioner Family; PCP Family Medicine; Referring Provider Physician Assistant Medical; Visit Provider Physician Assistant Medical
DX: J84.9 Interstitial pulmonary disease, unspecified (principal); I50.32 Chronic diastolic (congestive) heart failure
CPT/HCPCS: 36415; 80048; 80076

== ENCOUNTER → 2024-06-02 | Outpatient (CLI) | payer OTHER, SELFPAY | END | disposition home or self-care (01) | LOC: SL 19:43 | PROVIDERS: PCP Family Medicine; Referring Provider Nurse Practitioner Family; Visit Provider Nurse Practitioner Family | DX: G47.33 Obstructive sleep apnea (adult) (pediatric) (principal) | CPT/HCPCS: 95811 ==

== ENCOUNTER → 2024-08-12 | Outpatient (CLI) | payer OTHER, SELFPAY ==
--- NOTE | 2024-08-12 11:32 | RAD_ITS ---
PROCEDURE: CHEST PA AND LATERAL 08/12/2024 REASON FOR EXAM: SHORTNESS OF BREATH TECHNIQUE: Frontal and lateral views of the chest. COMPARISON: 04/24/2024 FINDINGS: Bilateral lower zone and peripheral predominant patchy ill-defined opacities are not significantly changed. No consolidation or acute appearing process identified. No pleural effusion. Cardiac silhouette appears mildly large for technique. Atherosclerotic change of the aortic arch. Thoracolumbar spondylosis/discogenic change. RAD/Chest PA and Lateral IMPRESSION: Bilateral lower zone and peripheral predominant patchy ill-defined opacities ar e not significantly changed. No consolidation or acute appearing process identified. No pleural effusion. Cardiac silhouette appears mildly large for technique. Reading Location: [id number]
[2024-08-12 14:32] LABS: Anion Gap 14 (5-15); BUN 40 mg/dL (4-19); BUN/Creat Ratio 30.2 RATIO (10-20); Calcium,Total 9.6 mg/dL (7.6-11.0); Carbon Dioxide 25.1 mmol/L (21.0-32.0); Chloride 98 mmol/L (98-108); Creatinine, Serum 1.31 mg/dL (0.70-1.20); EST Glomerular Filtration Rate 62 (>60); Glucose 104 mg/dL (70-99); Potassium 4.4 mmol/L (3.3-5.1); Pro- Brain NATRIURETIC PEPTIDE 626 pg/mL (<=900); Sodium Level 137 mmol/L (133-145)
== END | disposition home or self-care (01) ==
LOC: LAB 11:28
PROVIDERS: PCP Family Medicine; Referring Provider Student in an Organized Health Care Education/Training Program; Visit Provider Student in an Organized Health Care Education/Training Program
DX: R06.02 Shortness of breath (principal)
CPT/HCPCS: 36415; 71046; 80048; 83880

== ENCOUNTER 2024-09-26 15:27 | Inpatient (IN) | payer OTHER, SELFPAY ==
[2024-09-26] VITALS (15 sets, daily range): BP systolic 126–156; BP diastolic 50–104; PULSE 68–91; RESP 18–26; TEMP 36.6–36.8; O2SAT 91–97; BMI 47.8
--- NOTE | 2024-09-26 15:39 | CT_ITS ---
EXAM: STROKE BRAIN/HEAD WITHOUT CONT CLINICAL HISTORY: 59 y/o M with NEURO DEFICIT, ACUTE, STROKE SUSPECTED. COMPARISON: Brain MRI 04/25/2024, CTA head and neck 04/24/2024. TECHNIQUE: Routine CT imaging of the head without IV contrast. Additional multiplanar reformats were obtained. Dose reduction techniques were used including intermediate exposure control (AEC),iterative reconstruction technique, and/or mA and/or KV dose adjustments based on patient's size. FINDINGS: The ventricles, sulci and cisterns are normal for patient age. There is no evidence of acute intracranial hemorrhage or herniation. There is no midline shift, mass effect, or extra-axial collection. Mild scattered supratentorial white matter hypodensities and additional hypodensities within the bilateral centrum semiovale. Tiny lacunar type infarct within the right basal ganglia. The carvalho-white matter interfaces are otherwise maintained. Retention cyst or polyp within the left maxillary sinus. The orbits, visualized paranasal sinuses and mastoids are unremarkable. No acute calvarial fracture or scalp hematoma. CT/STROKE Brain/Head without Cont IMPRESSION: No acute intracranial finding. Chronic microvascular ischemic changes and age- related changes as described. Dr. Newberry discussed these findings via telephone with Dr. Avitia at 4:36 pm o n 09/26/24. Reading Location: [id number]
--- NOTE | 2024-09-26 15:39 | EKG12_ITS ---
Test Reason : NEURO Blood Pressure : */* mmHG Vent. Rate : 82 BPM Atrial Rate : 82 BPM P-R Int : 138 ms QRS Dur : 106 ms QT Int : 396 ms P-R-T Axes : 16 -12 73 degrees QTcB Int : 462 ms Sinus rhythm with occasional Premature ventricular complexes Left ventricular hypertrophy with repolarization abnormality ( R in aVL , Miguel product , Romhilt-Waggoner ) Abnormal ECG Confirmed by CARO MCRAE, ANGELA ([id number]), editorial intern JULIAN COSTELLO ([id number]) on 09/29/2024 6:40:25 AM Referred By: Angel Avitia Confirmed By: ANGELA ELIZONDO MD
--- NOTE | 2024-09-26 15:48 | EDS_ITS ---
HPI History of Present Illness Chief Complaint: Numb/Ting Detail of Chief Complaint: Patient has tingling and weakness left side. Onset between 1413 on Informant: patient and spouse/S.O. Onset/Context/Timing Onset: Yesterday Context: Sudden Onset Timing: Continuous Quality and Location: Positive for Left Facial Droop (Per ), Left Arm Parasthesia, Left Leg Parasthesia, Left Arm Weakness, Left Leg Weakness and Difficulty with Ambulation Onset: September 25 between 14:00 & 14:30 Current Severity: Mild Maximum Severity: Moderate Worsened by: Patient was off his aspirin, Brilinta and Eliquis Relieved by: Not applicable Associated Symptoms Associated Symptoms: Negative for Headache, Nausea, Vomiting or Chest Pain Narrative Narrative: Patient is a 59-year-old male. He has history of CVA, chronic respiratory failure, microalbuminemia due to type 2 diabetes, obstructive sleep apnea, insulin-dependent diabetic on insulin pump, anemia, positive rheumatoid factor, chronic diastolic congestive heart failure who presents because of persistent weakness left side. Onset was yesterday between 14:00 and 14:30. states he took 4 people to assist him to the car. Patient stopped his aspirin, Brilinta and Eliquis because he had a lung biopsy to determine cause of his chronic hypoxia and lung disease. This was performed at [facility]. Patient did take his medicine last evening and this morning. He denies headache, double vision, blurred vision or change in vision. He had no trouble with speech or swallowing. His weakness was left side. states he had left-sided facial droop. He denies cardiac or respiratory symptoms from baseline. acknowledges that he is pale compared to normal. Prior similar symptoms: Yes Recent Illness/Hospitalization: Yes (Lung biopsy [facility]) [facility] Medical History Hyperlipidemia Ischemic cerebrovascular accident (CVA) CHF (congestive heart failure) Chronic respiratory failure with hypoxia KIANNA (obstructive sleep apnea) Presence of insulin pump CKD (chronic kidney disease) Hypothyroidism Essential (primary) hypertension Diabetes Acute hypoxemic respiratory failure Chronic diastolic CHF (congestive heart failure) Obesity Exertional shortness of breath Iron deficiency anemia due to chronic blood loss Current use of mcc anticoagulation Morbid obesity with BMI of 45.0-49.9, adult Atherosclerotic heart disease of [place] coronary artery without angina pectoris Mini stroke (~10/01/23) Peripheral vestibulopathy Cranial nerve disorder Polyneuropathy Wears glasses Depression Anxiety Cancer Thyroid disease Insulin dependent diabetes mellitus Arthritis History of renal disease Prostate disease Gastric reflux CPAP (continuous positive airway pressure) dependence Sleep apnea Shortness of breath on exertion History of echocardiogram History of stress test History of CHF (congestive heart failure) Cardiology follow-up encounter History of atrial fibrillation Neuropathy Multiple thyroid nodules Microalbuminuria Thyroid nodule Double vision Non-proliferative diabetic retinopathy KIANNA treated with BiPAP Vertigo Congestive heart failure (CHF) Low testosterone Carotid stenosis High cholesterol Vision loss of right eye Vision loss of left eye Anemia Non-smoker Atrial fibrillation Hypertension Paroxysmal atrial fibrillation Polyneuropathy due to type 2 diabetes mellitus History of non-ST elevation myocardial infarction (NSTEMI) (03/28/20) TIA (transient ischemic attack) (2018) Hodgkin disease GERD (gastroesophageal reflux disease) BPH (benign prostatic hyperplasia) Anxiety and depression Morbid obesity with BMI of 45.0-49.9, adult Nephrolithiasis Diabetes mellitus, type II Home Medications ?Medication ?Instructions ?Recorded ?Last Taken ?Type tamsulosin 0.4 mg capsule 0.4 mg PO DAILY prostate 12/1511/16/23 History duloxetine 60 mg capsule,delayed 60 mg PO DAILY depres wanda 04/17/18 04/24/24 08: 10 History release (Cymbalta) 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,family day carer,cont #1 ea 07/26/20 Unknown 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) atorvastatin 80 mg tablet (Lipitor) 80 mg PO QHS arsenio sterol 09/04/21 04/23/24 20:09 History 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 transmitter (Dexcom #1 ea 12/29/21 Unkno wn Rx G6 Transmitter device) infusion set for insulin pump 10/08/22 Unknown Histor y insulin pump controller 10/08/22 Unknown History 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 sensor (Dexcom G6 #1 ea 02/25/23 Unknown Rx Sensor device) insulin regular hum U-500 conc 500 75 unit (0.15 mL) c ontinuous 11/11/23 11/16/23 Rx unit/mL subcutaneous soln (Humulin subcutaneous infusi on DAILY blood R U-500 (Concentrated) Insulin) sugar #20 mL ferrous sulfate 325 mg (65 mg 325 mg PO DAILY anemia 1 05/03/23 04/24/24 08:00 History iron) tablet (Feosol) amlodipine 5 mg tablet 5 mg PO QDAY blood pressure 03/13/24 04/24/24 08:08 History aspirin 325 mg tablet 325 mg PO DAILY heart health 03/13/24 04/24/24 08:00 History metoprolol succinate 100 mg 100 mg PO DAILY heart #90 tabs 03/27/24 04/24/24 08:00 Rx tablet,extended release 24 hr lisinopril 40 mg tablet 40 mg PO DAILY blood pressur e 04/12/24 04/24/24 08:00 History levothyroxine 112 mcg tablet 112 mcg PO DAILY thyroid 04/24/24 04/24/24 08:00 History ticagrelor 90 mg tablet (Brilinta) 90 mg PO BID Unknown History furosemide 40 mg tablet (Lasix) 40 mg PO BID diuretic #270 tabs 06/23/24 Unknown Rx pantoprazole 40 mg tablet,delayed 40 mg PO BID acid re flux #60 tabs 07/22/24 Unknown Rx release (Protonix) empagliflozin 25 mg tablet 25 mg PO DAILY diabetes #30 tabs 08/12/24 Unknown Rx (Jardiance) fenofibrate micronized 134 mg 134 mg PO QDAY #30 caps 08/19/24 Unknown Rx capsule apixaban 5 mg tablet (Eliquis) 5 mg PO BID blood thinn er #180 tabs 08/31/24 Unknown Rx buspirone 10 mg tablet 10 mg PO .1-3 times daily An xiety 09/16/24 Unknown History oxycodone-acetaminophen 5 mg-325 1 tab PO TID PRN 08/30 11/23 Unknown History mg tablet prednisone 5 mg tablet See Rx Instructions PO .COMP SOFY 09/16/24 Unknown History Allergy/AdvReac Type Severity Reaction Status Date / Time metoclopramide HCl (From Allergy Severe Anaphylaxis Verified 09/16/24 10:05 Reglan) Family History Brother Heart disease Mother CVA (cerebral vascular accident) Hypertension Rheumatoid arthritis Father Diabetes Other Alcohol abuse ulcer disease Surgical History History of cardiac catheterization History of lymph node excision History of left heart catheterization (2009) Hx of nephrolithotomy with removal of calculi History of thoracentesis (2016) Social History household members: spouse and none Smoking Status: Never smoker Electronic Cigarette Use: not used second hand exposure: No alcohol intake: never substance use type: does not use what type of physical activity do you participate in: none ROS ROS ED Constitutional Constitutional ED: Denies chills, fever(s), subjective, sweats or weakness Eyes Eyes: Denies blurry vision, change in vision or diplopia ENT ENT ED: Denies ear pain, rhinorrhea or sore throat Cardiovascular Cardiovascular: Denies chest pain, palpitations or paroxysmal nocturnal dyspnea Respiratory/Chest Respiratory/Chest: Reports dyspnea, dyspnea on exertion and other Details: Respiratory symptoms are chronic. ; Denies cough or paroxysmal nocturnal dyspnea Gastrointestinal Gastrointestinal: Denies abdominal pain, nausea or vomiting Musculoskeletal Musculoskeletal: Denies arthralgias, back pain or myalgias Integumentary Denies rash Neurologic Neurologic: Reports weakness; Denies headache(s) or paresthesias Endocrine Endocrinology: Denies polydipsia, polyphagia or polyuria Hematologic/Lymphatic Hematologic/Lymphatic: Reports easy bleeding and easy bruising EXAM Physical Exam Const Vital Signs: 09/26/24 15:29 09/26/24 15:39 09/26/24 15:41 Temperature 97.9 F Temperature Source Oral Pulse Rate 84 78 Respiratory Rate 18 25 H Blood Pressure 133/64 H 133/64 H Blood Pressure Mean 87 87 Pulse Ox 97 95 Oxygen Delivery Method Nasal Cannula Nasal Cannula Nasal Cannula Oxygen Flow Rate (L/min) 4 4 4 09/26/24 16:09 09/26/24 16:30 Temperature Temperature Source Pulse Rate 91 79 Respiratory Rate 23 H 26 H Blood Pressure 134/104 H 146/73 H Blood Pressure Mean 114 97 Pulse Ox 96 Oxygen Delivery Method Nasal Cannula Oxygen Flow Rate (L/min) 3 Positive well nourished and well developed Constitutional Narrative: Blood pressure slightly elevated. Patient is not hypoxic on oxygen. He appears in no distress. General Appearance ED: well developed HEENT Reports moist mucous membranes atraumatic Eyes PERRL and EOMs intact bilaterally General Eye ED: Negative for pale conjunctiva or scleral icterus Neck no lymphadenopathy, supple and no JVD Neck Narrative: Trachea is midline. There is no stridor. Chest Wall inspection of chest normal and palpation of chest normal Resp normal respiratory effort and clear to auscultation bilaterally Cardio Rate: regular rate Rhythm: regular rhythm Heart Sounds: S2 normal GI normal to inspection, nondistended, normoactive bowel sounds, soft to palpation, non-tender, non-distended and no masses Extremity Negative for normal to inspection Extremity Narrative: Patient has multiple bruises right upper extremity. He appears pale. General Extremety ED: Yes edema; Negative for tenderness General Extremity: edema Neuro oriented x3 and CN's II-XII intact bilaterally Neuro Narrative: There is slight asymmetry of his face. This is old. 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 [place] Coma Scale: document GCS findings Spontaneous Obeys Commands Oriented 15 Sensorium / Orientation: alert Speech: speech normal Sensory Exam: No sensory level loss detected Motor Exam: Negative for strength 5/5 throughout Psych mental status grossly normal Skin no wounds Skin Narrative: Patient is very pale. General Skin Exam: jaundice Lesions: no lesions Rashes: no rashes MDM MDM MDM Narrative Medical decision making narrative: Patient presents with stroke that is improving. Probably due to the fact that his antithrombotic and anticoagulant were held for lung biopsy. Will obtain CT. Stroke order set was initiated. History and physical is not consistent consistent or suggestive of hemorrhage. Suspect this is due to a thrombotic cause. Since he is diabetic we will obtain electrolyte panel to assess glucose anion gap. CBC to assess H&H since he is very pale and platelet count. Coags may be abnormal due to the fact that he is on Eliquis. History & Record Review Discussion w/independent historian: Patient and Family Additional record(s) reviewed:: Prior outpatient record and Prior labs Lab Data Attestation: I reviewed the patient's lab results. Lab results narrative: White count is elevated. White count has been elevated on prior tests. BUN/creatinine are elevated. They are approximately patient's baseline. Coags are unremarkable. Electrolyte panel is remarkable for glucose of 246. CO2 anion gap is normal. First troponin is elevated 47. 2 hours pending. Labs: Laboratory Results - last 24 hr 09/26/24 15:40 WBC 14.0 H RBC 3.79 L Hgb 9.1 L Hct 30.0 L MCV 79.2 L MCH 24.0 L MCHC 30.3 L RDW Std Deviation 50.9 H RDW Coeff of Gavi 17.9 H Plt Count 237 MPV 10.4 Immature Gran % (Auto) 0.800 Neut % (Auto) 85.3 H Lymph % (Auto) 4.2 L [place] % (Auto) 8.7 Eos % (Auto) 0.6 Baso % (Auto) 0.4 Absolute Neuts (auto) 11.9 H Absolute Lymphs (auto) 0.58 L Nucleated RBC % 0 PT 13.1 INR 1.0 APTT 20.8 L Sodium 138 Potassium 4.2 Chloride 100 Carbon Dioxide 22.9 Anion Gap 15 BUN 31 H Creatinine 1.26 H Est GFR (MDRD) Non-Af 65 BUN/Creatinine Ratio 24.6 H Glucose 246 H Calcium 9.0 Troponin T High Sens 47 H Radiography Diagnostic Testing: Clinical Impression(s) from Imaging Studies Brain CT 09/26/24 15:39 IMPRESSION: No acute intracranial finding. Chronic microvascular ischemic changes and age- related changes as described. Dr. Newberry discussed these findings via telephone with Dr. Avitia at 4:36 pm on 09/26/24. Reading Location: [id number] Radiologist informing there is no evidence of acute stroke or hemorrhage. CT was reviewed by me. There is nothing obvious that I saw or any change compared to prior. EKG Initial EKG: Attestation: I personally reviewed and interpreted this EKG as follows: Interpretation: Sinus Rhythm (Rate is 82. NM interval 238 ms. QRS durations 106 ms. QT durations are 96 ms. Willard is normal. There is evidence of LVH. There is evidence of premature ventricular beats. Patient does have evidence of LVH by voltage criteria.) Prior: Unchanged Management Discussion w/another healthcare provider: Hospitalist (Case discussed with Dr. Eula Berrios. 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 Misc See Rx Instructions .ROUTE .MEDSUPPLY Qty: 1 0RF Rx Instructions: As directed (DME) infusion set for insulin pump Infusion Set See Rx Instructions .Route Rx Instructions: As directed (DME) insulin pump controller [facility] See Rx Instructions .Route Rx Instructions: As directed aspirin 325 mg tablet 325 mg PO DAILY Patient Comments: coated fenofibrate micronized 134 mg capsule 134 mg PO QDAY Qty: 30 7RF amlodipine 5 mg tablet 5 mg PO QDAY prednisone 5 mg tablet See Rx Instructions PO .COMPLEX Rx Instructions: Prednisone Burst orally; oxycodone-acetaminophen 5-325 mg tablet 1 tab PO TID PRN Brilinta 90 mg tablet 90 mg PO BID tamsulosin 0.4 MG capsule 0.4 mg PO DAILY duloxetine [Cymbalta] 60 MG capsule,delayed release(DR/EC) 60 mg PO DAILY buspirone 10 mg tablet 10 mg PO .1-3 times daily Rx Instructions: pt states he usually takes 1 daily atorvastatin [Lipitor] 80 MG tablet 80 mg PO QHS Rx Instructions: cholesterol ferrous sulfate [Feosol] 325 mg (65 mg iron) tablet 325 mg PO DAILY lisinopril 40 mg tablet 40 mg PO DAILY levothyroxine 112 mcg tablet 112 mcg PO DAILY (DME) Dexcom G6 Transmitter Device See Rx Instructions .ROUTE .MEDSUPPLY Qty: 1 3RF Rx Instructions: As directed (DME) Dexcom G6 Sensor Device See Rx Instructions .ROUTE .MEDSUPPLY Qty: 1 6RF Rx Instructions: As directed Humulin R U-500 (Conc) Insulin 500 unit/mL solution 75 unit continuous subcutaneous infusion DAILY Qty: 20 5RF Patient Comments: INSULIN PUMP; pt. states that he does bolus with meals based on pump's suggested dose; unsure of basal rate; pump is currently broken, to bring in new wiring in AM metoprolol succinate 100 mg tablet extended release 24 hr 100 mg PO DAILY Qty: 90 3RF furosemide [Lasix] 40 mg tablet 40 mg PO BID Qty: 270 3RF Rx Instructions: Take extra 40 mg dose at 5 PM for increased leg swelling or weight gain 5 pounds in 1 week. pantoprazole [Protonix] 40 mg tablet,delayed release (DR/EC) 40 mg PO BID Qty: 60 3RF Jardiance 25 mg tablet 25 mg PO DAILY Qty: 30 5RF Eliquis 5 mg tablet 5 mg PO BID Qty: 180 3RF Primary Care Provider: Brandt Winter Referrals: Brandt Winter MD [Primary Care Provider] - Print Language: Portuguese Disposition Disposition: Acute Care Hospital [facility] NIHSS NIHSS 1a. Level of Consciousness: 0 - Alert; keenly responsive 1b. LOC Questions: 0 - Answers BOTH questions correctly 1c. LOC Commands: 0 - Performs BOTH tasks correctly 2. Best Gaze: 0 - Normal 3. Visual: 0 - No visual loss 4. Facial Palsy: 0 - Normal symmetrical movements 5a. Left Arm: 1 - Drift; arm drifts downward but doesn?t hit the bed 5b. Right Arm: 0 - No drift; arm holds 90 (or 45) degrees for full 10 seconds 6a. Left Le - Drift; leg falls by the end of 5-seconds, but does not hit bed 6b. Right Le - No drift; leg holds 30-degree position for full 5 seconds 7. Limb Ataxia: 0 - Absent 8. Sensory: 0 - Normal; no sensory loss 9. Best Language: 0 - No aphasia; normal 10. Dysarthria: 0 - Normal 11. Extinction and Inattention: 0 - No abnormality Total: 2 Stroke Questions Stroke Team Activated: No Reviewed Inclusion/Exclusion criteria: No (Outside of window) Was Patient considered for Endovascular Intervention?: No (Outside of window) No contraindications from thrombolytic administration: No (Patient presents greater than 24 hours since onset)
[2024-09-26 16:01] LABS: Absolute Lymphocyte Count 0.58 X10^3/uL (0.83-4.51); Absolute Neutrophil Count 11.9 X10^3/uL (2.0-7.7); Basophil# 0.05 X10^3/uL; Basophil% 0.4 % (0-1); Eosinophil# 0.09 X10^3/uL; Eosinophils% 0.6 % (0-5); Hemoglobin 9.1 g/dL (13.0-16.5); Lymphocyte # 0.58 X10^3/ul (0.83-4.51); Lymphocyte % 4.2 % (19-41); Mean Corp Hgb Conc 30.3 g/dL (32-36); Mean Corpuscular Volume 79.2 fL (80-94); Mean Platelet Vol. 10.4 fl (6.2-12.0); Monocyte# 1.21 X10^3/uL; Monocyte% 8.7 % (0-10); NRBC Flagged by Analyzer 0 % (0-5); Neutrophil # 11.91 X10^3/uL (2.7-7.7); Neutrophil % 85.3 % (47-70); POSITIVE DIFFERENTIAL YES; Platelet Count 237 K/mm3 (150-450); RBC Distribution Width CV 17.9 % (11.6-14.6); RBC Distribution Width SD 50.9 fl (35.1-43.9); Red Blood Count 3.79 M/mm3 (4.6-6.2)
--- OUTSIDE RECORDS SUMMARY | 2024-09-26 16:17 | XMS RPT_ITS | CCD ---
Author Organization [facility] [place] [facility] Care Team Providers Care Legal Office Administrator Name Role Phone Radha Khan Primary Care Provider [phone] Dr. Radha Khan Primary Care Provider Dr. Radha Khan Referring Provider [phone] PITO Gerardo Attending Provider [phone] Tia Boyd Attending Provider Dr. Radha Khan Other Provider [phone] Dr. Jonathon Salas Attending Provider Dr. Angel Avitia Emergency Provider Dr. Eleni Alfredo Admit Provider Dr. Eleni Alfredo Attending Provider Dr. Eleni Alfredo Other Provider Dr. Sumanth Hanna Attending Provider Dr. Krunal Pate Attending Provider Dr. Krunal Pate Other Provider PITO Chin NP Attending Provider Dr. Radha Khan Primary Care Provider Dr. Radha Khan Referring Provider PITO Sky NP Attending Provider PITO Gerardo Attending Provider [phone] Jonathon Salas Attending Provider Dr. Jonathon Salas Other Provider Dr. Fran Rodriguez Attending Provider Dr. Radha Khan Primary Care Provider Dr. Radha Khan Referring Provider Dr. Jonathon aSlas Referring Provider Roof CASE WORK AIDE, SAV-Surinder Jackson Attending Provider Dr. Radha Khan Primary Care Provider Dr. Radha Khan Referring Provider PITO eGrardo Attending Provider Roof CASE WORK AIDE, SAV-Surinder Jackson Attending Provider Vallejo CASE WORK AIDE, SAV-Surinder Childress Attending Provider Dr. Radha Khan Primary Care Provider Dr. Radha Khan Referring Provider PITO Gerardo Attending Provider Dr. Nely Hill Emergency Provider Dr. Cookie Bell Admit Provider Dr. Cookie Bell Other Provider Dr. Eduin Ospina Attending Provider Unavailable Dr. Eduin Ospina Other Provider Unavailable Dr. Burt Herrera Attending Provider Dr. Rdaha Khan Primary Care Provider Dr. Radha Khan Referring Provider Dr. Burt Herrera Referring Provider Dr. Francois Valiente Attending Provider Dr. Radha Khan Primary Care Provider Dr. Radha Khan Referring Provider PITO Gerardo Attending Provider Dr. Francois Valiente Referring Provider Dr. Sumanth Hanna Attending Provider Dr. Radha Khan Primary Care Provider Dr. Radha Khan Referring Provider PITO Gerardo Attending Provider Dr. Karol Rushing Attending Provider Dr. Radha hKan Primary Care Provider Dr. Radha Khan Referring Provider IPTO Gerardo Attending Provider Dr. Karol Rushing Attending Provider Roof CASE WORK AIDEPITO Attending Provider Dr. Toni Vann Attending Provider Dr. Karol Rushing Other Provider Baum PA, PA-C Shanti Referring Provider Sarika PA, PA-C Shanti Other Provider Dr. Radha Khan Primary Care Provider Dr. Radha Khan Referring Provider PITO Gerardo Attending Provider Dr. Radha Khan Primary Care Provider Dr. Radha Khan Referring Provider Dr. Karol Rushing Attending Provider Dr. Francois Valiente Attending Provider Dr. Radha Khan Primary Care Provider Dr. Radha Khan Referring Provider Roof CASE WORK AIDEPITO Attending Provider Dr. Karol uRshing Attending Provider Dr. Toni Vann Attending Provider Dr. Karol Rushing Other Provider Sarika PA, PA-C Shanti Referring Provider RON Zimmerman Other Provider Dr. Francois Valiente Attending Provider Dr. Francois Valiente Referring Provider [phone] PITO Gerardo Attending Provider Dr. Radha Khan Primary Care Provider Dr. Radha Khan Referring Provider [phone] [facility] SAV, PITO Jackson Attending Provider Dr. Ochoa Dobbs Attending Provider DR RADHA KHAN MD Primary Care Physician Radha Khan Primary Care Provider CHITRA DUKESN-LEGISLATIVE CORRESPONDENT, CHITO Nuñez Referring Unavailable GALINDO-GABRIELA STAFF AIR DEFENSE OFFICER-LEGISLATIVE CORRESPONDENT, CHITO Nuñez Attending Unavailable CHITRA STAFF AIR DEFENSE OFFICER-LEGISLATIVE CORRESPONDENT, CHITO Nuñez Admitting Unavailable AMBER OROZCO MD Consulting Unavailable DR RADHA KHAN MD Primary Care Unavailable Juventino MCRAE, Suzy Unavailable MEY LOYA Referring Unavailable JOLLIFF, RADHA Primary Care Unavailable DOMINIC FLEMING Referring Unavailable JOLLIFF, RADHA Primary Care Unavailable HARMEET STALLWORTH Attending Unavailabl e VENIZELOS, OZIEL Consulting Unavailable JEMMA STALLWORTHA C Admitting Unavailabl e VENIZELOS, OZIEL Attending Unavailable VENIZELOS, OZIEL Referring Unavailable JOLLIFF, RADHA Primary Care Unavailable JUVENTINO, SUZY Attending Unavailable JUVENTINO, SUZY Referring Unavailable JOLLIFF, RADHA Primary Care Unavailable VENIZELOS, OZIEL Attending Unavailable JOLLIFF, RADHA Primary Care Unavailable JUVENTINO, SUZY Attending Unavailable JOLLIFF, RADHA Primary Care Unavailable MEY LOYA Attending Unavailable MEY LOYA Referring Unavailable JOLLIFF, RADHA Primary Care Unavailable VENIZELOS, OZIEL Attending Unavailable VENIZELOS, OZIEL Referring Unavailable JOLLIFF, RADHA Primary Care Unavailable VENIZELOS, OZIEL Attending Unavailable VENIZELOS, OZIEL Referring Unavailable JOLLIFF, RADHA Primary Care Unavailable Unavailable Primary Care Provider Unavailstuart Khan MD, Radha Melendez Primary Care Provider NEREIDA, MAROUN Referring Unavailable NEREIDA, MAROUN Referring Unavailable JOLLIFF, RADHA JOSHUA Primary Care Unavailable NEREIDA, MAROUN Referring Unavailable JOLLIFF, RADHA JOSHUA Primary Care Unavailable NEREIDA, MAROUN Referring Unavailable JOLLIFF, RADHA JOSHUA Primary Care Unavailable Bill MCRAE, Dr. Radha Mcmahon Primary Care Provider [phone] Isai PUTNAM, Dr. Rockwell Referring Provider [phone] Isai PUTNAM, Dr. Rockwell Emergency Provider Bhavesh MCRAE, Dr. Denny Admit Provider Unavailable Bhavesh MCRAE, Dr. Denny Other Provider Unavailable Ryder MCRAE, Dr. Norwood Attending Provider Monico MCRAE, Dr. Hall Other Provider Katherine MCRAE, Dr. Mendez Other Provider Josue MCRAE, Dr. Holt Other Provider Dr. Fran Rodriguez DO Other Provider Brynn MCRAE, Dr. Eduin Duarte Other Provider Aneta MCRAE, Dr. Bermudez Other Provider Payton MCRAE, Dr. Taylor Other Provider Magdaleno MCRAE, Dr. Arnold Other Provider Robert MCRAE, Dr. Lopez Other Provider Dr. Conor Palafox MD Other Provider [phone] Yvan MCRAE, Dr. Adamson Other Provider Jose MCRAE, Dr. Myles Other Provider [phone] Shobha Larios MD [facility] Brennan Jimenez MD Other Provider Gavi MCRAE, Dr. Gilliam Other Provider Sim MCRAE, Dr. Menchaca Other Provider Dr. Parish Viveros DO Other Provider Bernice MCRAE, Dr. Huber Other Provider [phone] Kae MCRAE, Dr. Gary Other Provider Jose PUTNAM, Dr. Desir Other Provider Hiro MCRAE, Dr. Reyes Other Provider Horacio MCRAE, Dr. Hernandez Other Provider Ryder MCRAE, Dr. Norwood Other Provider [phone] Michael PUTNAM, Dr. Peters Attending Provider Bill MCRAE, Dr. Radha Mcmahon Referring Provider Akin CASE WORK AIDE-C, Coreen Attending Provider Bob CASE WORK AIDE-C, Chen Nuñez Attending Provider Bill MCRAE, Dr. Radha Mcmahon Attending Provider Dr. Daniel Mcneil DO Referring Provider Dr. Daniel Mcneil DO Emergency Provider Arabella MCRAE, Dr. Cookie Ho Admit Provider Arabella MCRAE, Dr. Cookie Ho Other Provider Yissel MCRAE, Edmund Other Provider Unavailable Deb MCRAE, Dr. Foster Other Provider [phone] Amy Dumont MD Other Provider Unavailable Dr. Bethany Velasco DO Other Provider Loy MCRAE, Dr. Ayala Other Provider [phone] Yani MCRAE, Dr. Mondragon Other Provider Wm MCRAE, Dr. Acharya Other Provider [phone] Dr. Alden Lazaro MD Other Provider [phone] Dr. Julius Flores MD Other Provider Nitish MCRAE, Dr. Ibarra Other Provider Jennifer Toledo MD Other Provider Maria Elena MCRAE, Dr. Shepherd Other Provider Bharathi MCRAE, Dr. Palak Other Provider Serena MCRAE, Dr. Martinez Other Provider Dr. Indigo Coates MD Other Provider Palmer MCRAE, Dr. Valderrama Other Provider Una MCRAE, Dr. Mccloud Other Provider Darci MCRAE, Dr. Gauthier Other Provider [phone] Esmer MCRAE, Dr. Guillen Other Provider Unavailable Osvaldo MCRAE, Galdinosecassidy Other Provider Unavailable Dr. Ochoa Johnson DO Attending Provider Arabella MCRAE, Dr. Cookie Ho Attending Provider Soo MCRAE, Dr. Muñoz Attending Provider Soo MCRAE, Dr. Muñoz Referring Provider Jacques MCRAE, Dr. Julio Attending Provider Dilia MCRAE, Dr. Packer Attending Provider Dr. Rito Lundberg MD Attending Provider Dr. Rito Lundberg MD Referring Provider Lydia Jiménez Attending Provider Lydia Jiménez Referring Provider Bob ANG-C, Chen Nuñez Referring Provider Jacques MCRAE, Sumanth Attending Provider Unavailable Brandt Winter MD Primary Care Provider Khadar Salguero Attending Provider James Salgueroyler Referring Provider Bill MCRAE, Dr. Garcia S Primary Care Provider Bill MCRAE, Dr. Garcia S Primary Care Provider Bill MCRAE, Dr. Radha Mcmahon Referring Provider Bill MCRAE, Dr. Garcia S Primary Care Provider Bill MCRAE, Dr. Radha Mcmahon Referring Provider Lydia Jiménez Attending Provider [phone] Lydia Jiménez Referring Provider Jacques MCRAE, Dr. Julio Attending Provider [phone] Bob CASE WORK AIDE-CChen Attending Provider Bob CASE WORK AIDE-C, Chen Nuñez Referring Provider Soo MCRAE, Dr. Muñoz Attending Provider Dr. Toni Vann MD Referring Provider Sumanth Hanna MD Attending Provider Unavailable Moy MCRAE, Brandt Primary Care Provider Khadar Salguero Attending Provider Khadar Salguero Referring Provider Akin ANG-CCoreen Attending Provider [phone] Brandt Winter MD Referring Provider Jolliff, Radha S Primary Care Unavailable PrasanthSameer Attending Unavailable Sameer Rader Referring Unavailable Roof CASE WORK AIDE, Oren H Attending Unavailable Roof CASE WORK AIDE, Oren H Referring Unavailable Jolliff, Radha S Primary Care Unavailable Jolliff, Radha S Referring Unavailable Jolliff, Radha S Attending Unavailable Jolliff, Radha S Primary Care Unavailable Jolliff, Radha S Primary Care Unavailable Jolliff, Radha S Referring Unavailable Fior Vallejo NP Attending Unavailable Fabiolaiff, Radha S Primary Care Unavailable Toni Vann Referring Unavailable Toni Vann Attending Unavailable Bethany Shelley Attending Unavailable Jolliff, Radha S Primary Care Unavailable Jolliff, Radha S Referring Unavailable Moy, Chalon Primary Care Unavailable Jolliff, Radha S Referring Unavailable BaddourToni Attending Unavailable Jolliff, Radha S Referring Unavailable Moy, Chalon Primary Care Unavailable Toni Vann Attending Unavailable Xiao Berrios Consulting Unavailable Jolliff, Radha S Primary Care Unavailable Fran Rodriguez Attending Unavailable Xiao Berrios Admitting Unavailable Krunal Pate Referring Unavailable Rafael Marc Consulting Unavailable Andrea Murphy Consulting Unavailable Jonathon Salas Consulting Unavailable Fran Rodriguez Consulting Unavailable Eduin Swain Consulting Unavailable Aidan Cornell Consulting Unavailable Brandon Cain Consulting Unavailable Catalina Dolan Consulting Unavailab John Gunter Consulting Unavailable Conor Palafox Consulting Unavailable Shameka Garcia Consulting Unavailable Shobha Larios Consulting Unavailable Brennan Valentine Consulting Unavailable Mane Gatica Consulting Unavailable Sim, Nikolai Consulting Unavailable Kassandra Viveroskhdeep Consulting Unavailable Cecile Queen Consulting Unavailable Thang Garcia Consulting Unavailable Eric Bosch Consulting Unavailable David Leonard Consulting Unavailable Krunal Pate Consulting Unavailable Xiao Berrios Consulting Unavailable Xiao Berrios Admitting Unavailable Xiao Berrios Attending Unavailable Jolliff, Radha S Primary Care Unavailable Jolliff, Radha S Referring Unavailable Jolliff, Radha S Primary Care Unavailable Lydia Jiménez Attending Unavail able Toni Vann Referring Unavailable Toni Vann Attending Unavailable Jolliff, Radha S Primary Care Unavailable Jolliff, Radha S Referring Unavailable Rito Lundberg Attending Unavailable Jolliff, Radha S Primary Care Unavailable Jolliff, Radha S Primary Care Unavailable Sumanth Hanna Attending Unavailable Lydia Jiménez Referring Unavail able Sumanth Hanna Attending Unavailable Jolliff, Radha S Primary Care Unavailable Edmund eDy Consulting Unavailable Eduin Umaña Admitting Unavailable Jolliff, Radha S Primary Care Unavailable Xiao Berrios Attending Unavailable AdeliKristin Consulting Unavailable Hinduja, Amy Consulting Unavailable Rod, Bethany Consulting Unavailable Zha, Lucy Consulting Unavailable Yani, Giancarlo Consulting Unavailable Wm, Patrizia Consulting Unavailable Alden Lazaro Consulting Unavailable Julius Flores Consulting Unavailable Fred Talbert Consulting Unavailable Jennifer Toledo Consulting Unavailable Joao Arredondo Consulting Unavailable Palak Garvin Consulting Unavailable Michelle Lyons Consulting Unavailable Indigo Coates Consulting UnavailLavelle Gillespie Consulting Unavailable Rogers Heart Consulting Unavailable Abrahan Bejarano Consulting Unavailable Mindy Benítez Consulting Unavailable Ryan Riley Consulting Unavailable Ochoa Dobbs Consulting Unavailable Eduin Umaña Consulting Unavailable Tia Boyd Attending Unavailabl dejan Singhlliff, Radha S Primary Care Unavailable Toni Vann Referring Unavailable Baddomeek, Toni Attending Unavailable Jolliff, Radha S Primary Care Unavailable Jolliff, Radha S Referring Unavailable Jolliff, Radha S Primary Care Unavailable Coreen Gerardo Attending Unavailable Krunal Pate Attending Unavailable Jolliff, Radha S Primary Care Unavailable Eduin Ospina Consulting Unavailable Eduin Ospina Admitting Unavailable Ungur, Remus Referring Unavailable Cuco Soler Attending Unavailable Rafael Marc Consulting Unavailable Andrea Murphy Consulting Unavailable Jonathon Salas Consulting Unavailable Fran Rodriguez Consulting Unavailable Eduin Swain Consulting Unavailable Aidan Cornell Consulting Unavailable Brandon Cain Consulting Unavailable Catalina Dolan Consulting UnavailJohn Herrera Consulting Unavailable Conor Palafox Consulting Unavailable Juan Diego Santoro Consulting Unavailable Shameka Garcia Consulting Unavailable Shobha Larios Consulting Unavailable Brennan Valentine Consulting Unavailable Mane Gatica Consulting Unavailable Nikolai Montemayor Consulting Unavailable Parish Viveros Consulting Unavailable Cecile Queen Consulting Unavailable Abdirahman Pal Consulting Unavailable Thang Garcia Consulting Unavailable Eric Bosch Consulting Unavailable David Leonard Consulting Unavailable Jolliff, Radha S Primary Care Unavailable Asya ANG, Oren Jackson Attending Unavailable Oren Sky NP Referring Unavailable Jolliff, Radha S Primary Care Unavailable Yoni ANG, Fior Attending Unavailable Fior Vallejo NP Referring Unavailable Chen Rojas Attending Unavailable Chen Rojas Referring Unavailable Jolliff, Radha S Primary Care Unavailable Jolliff, Radha S Primary Care Unavailable Yoin CASE WORK AIDE, Fior Attending Unavailable Yoni CASE WORK AIDE, Fior Referring Unavailable Jolliff, Radha S Primary Care Unavailable Thelmadour, Toni Referring Unavailable Baddour Toni Attending Unavailable Jolliff, Radha S Primary Care Unavailable Armin Raderrey Referring Unavailable PrasanthSameer Attending Unavailable Jolliff, Radha S Referring Unavailable Jolliff, Radha S Attending Unavailable Jolliff, Radha S Primary Care Unavailable Lydia Jmiénez Referring Unavail able Lydia Jiménez Attending Unavail able Jolliff, Radha S Primary Care Unavailable Brandt Winter Primary Care Unavailable Khadar Valencia Attending Unavailable Khadar Valencia Referring Unavailable Jolliff, Radha S Primary Care Unavailable Roof CASE WORK AIDE, Oren Jackson Attending Unavailable Toni Vann Referring Unavailable Roof CASE WORK AIDE, Oren Jackson Attending Unavailable Roof CASE WORK AIDE, Oren Jackson Referring Unavailable Jolliff, Radha S Primary Care Unavailable Ochoa Johnson Attending Unavailable Edmund Dey Consulting Unavailable Daniel Mcneil Referring Unavailable Cookie Bell Admitting Unavailable Jolliff, Radha S Primary Care Unavailable Adeli, Amir Consulting Unavailable Hindualfredo, Amy Consulting Unavailable Rod, Bethany Consulting Unavailable Loy Lucy Consulting Unavailable AyniGiancarlo yu Consulting Unavailable WmPatrizia sesay Consulting Unavailable Alden Lazaro Consulting Unavailable Julius Flores Consulting Unavailable Fred Talbert Consulting Unavailable Jennifer Toledo Consulting Unavailable Joao Arredondo Consulting Unavailable Palak Garvin Consulting Unavailable Michelle Lyons Consulting Unavailable Indigo Coates Consulting UnavailLavelle Gillespie Consulting Unavailable [place] Heart Consulting Unavailable Abrahan Bejarano Consulting Unavailable Mindy Benítez Consulting Unavailable Ryan Riley Consulting Unavailable Cookie Bell Consulting Unavailable Eduin Umaña Referring Unavailable Jolliff, Radha S Primary Care Unavailable Ochoa Dobbs Attending Unavailable Fran Rodriguez Attending Unavailable Bethany Shelley Attending Unavailable Xiao Berrios Referring Unavailable Ochoa Dobbs Attending Unavailable Eduin Umaña Referring Unavailable Jolliff, Radha S Primary Care Unavailable Jolliff, Radha S Referring Unavailable Chen Rojas Attending Unavailable Moy, Chalon Primary Care Unavailable BremenOchoa baum Attending Unavailable Jolliff, Radha S Referring Unavailable Jolliff, Radha S Primary Care Unavailable Jolliff, Radha S Primary Care Unavailable Eduin Ospina Admitting Unavailable Cuco Soler Attending Unavailable Luli Alxe Referring Unavailable Eduin Ospina Consulting Unavailable Harriet Lammarie Consulting Unavailable Hiro, Eric Consulting Unavailable Jonathon Salas Consulting Unavailable Payton, Brandon Consulting Unavailable Fran Rodriguez Consulting Unavailable John Jones Consulting Unavailable DhesiKassandraParish Consulting Unavailable Sim, Nikolai Consulting Unavailable Thang Garcia Consulting Unavailable Shameka Garcia Consulting Unavailable Rafael Marc Consulting Unavailable Meme, Brennan Consulting Unavailable Cecile Queen Consulting Unavailable Abdirahman Pal Consulting Unavailable Catalina Dolan Consulting UnavailDavid Harrell Consulting Unavailable Bhaktia, Mane Consulting Unavailable Shawnees, Edward Consulting Unavailable Murphy, Andrea Consulting Unavailable Eduin Swain Consulting Unavailable Conor Palafox Consulting Unavailable Juan Diego Santoro Consulting Unavailable Cuco Soler Consulting Unavailable Fran Rodriguez Attending Unavailable Jolliff, Radha S Primary Care Unavailable ThelmadourToni Referring Unavailable BaddourToni Attending Unavailable Jolliff, Radha S Primary Care Unavailable Jolliff, Radha S Referring Unavailable Asya CASE WORK AIDE, Oren Jackson Attending Unavailable Jolliff, Radha S Referring Unavailable BaddourToni Attending Unavailable Jolliff, Radha S Primary Care Unavailable Jolliff, Radha S Primary Care Unavailable Vallejo CASE WORK AIDE, Fior Referring Unavailable Vallejo CASE WORK AIDE, Fior Attending Unavailable Jolliff, Radha S Referring Unavailable Ede Frost Attending Unavailable Jolliff, Radha S Primary Care Unavailable Xiao Berrios Consulting Unavailable Xiao Berrios Admitting Unavailable Jolliff, Radha S Primary Care Unavailable Krunal Pate Attending Unavailable Rafael Marc Consulting Unavailable Murphy, Andrea Consulting Unavailable Jonathon Salas Consulting Unavailable Fran Rodriguez Consulting Unavailable Eduin Swain Consulting Unavailable Aidan Cornell Consulting Unavailable Brandon Cain Consulting Unavailable Catalina Dolan Consulting UnavailJohn Herrera Consulting Unavailable Conor Palafox Consulting Unavailable Shameka Garcia Consulting Unavailable Shobha Larios Consulting Unavailable Brennan Valentine Consulting Unavailable Bhaktia, Mane Consulting Unavailable Nikolai Montemayor Consulting Unavailable Felice Parish Consulting Unavailable Cecile Queen Consulting Unavailable Thang Garcia Consulting Unavailable Eric Bosch Consulting Unavailable David Leonard Consulting Unavailable Jolliff, Radha S Primary Care Unavailable Jolliff, Radha S Referring Unavailable Vallejo CASE WORK AIDE, Fior Attending Unavailable Jolliff, Radha S Referring Unavailable Coreen Gerardo Attending Unavailable Jolliff, Radha S Primary Care Unavailable Jolliff, Radha S Referring Unavailable Bethany Shelley Attending Unavailable Jolliff, Radha S Primary Care Unavailable Chen Rojas Attending Unavailable Jolliff, Radha S Referring Unavailable Jolliff, Radha S Primary Care Unavailable Eduin Ospina Attending Unavailable Jolliff, Radha S Primary Care Unavailable Fran Rodriguez Attending Unavailable Vallejo CASE WORK AIDE, Fior Referring Unavailable Jolliff, Radha S Primary Care Unavailable Asya CASE WORK AIDE, Oren H Attending Unavailable Jolliff, Radha S Primary Care Unavailable Roof CASE WORK AIDE, Oren H Referring Unavailable Sumanth Hanna Attending Unavailable Edmund Dey Consulting Unavailable Eduin Umaña Admitting Unavailable de Eduin Landon Attending Unavailable Jolliff, Radha S Primary Care Unavailable Ochoa Mascorro Referring Unavailable Adeli, Amir Consulting Unavailable Hinduja, Amy Consulting Unavailable Rod, Bethany Consulting Unavailable Zha, Lucy Consulting Unavailable Yani, Giancarlo Consulting Unavailable Wm, Patrizia Consulting Unavailable BitAlden khoury Consulting Unavailable Julius Flores Consulting Unavailable Fred Talbert Consulting Unavailable Jennifer Toledo Consulting Unavailable Joao Arredondo Consulting Unavailable Palak Garvin Consulting Unavailable Michelle Lyons Consulting Unavailable Indigo Coates Consulting UnavailLavelle Gillespie Consulting Unavailable [place] Heart Consulting Unavailable Abrahan Bejarano Consulting Unavailable Mindy Benítez Consulting Unavailable Ryan Riley Consulting Unavailable Ochoa Dobbs Consulting Unavailable Eduin Umaña Consulting Unavailable Xiao Berrios Consulting Unavailable Jolliff, Radha S Primary Care Unavailable Yoni CASE WORK AIDE, Fior Referring Unavailable Yoni CASE WORK AIDE, Fior Attending Unavailable Armin Fermin Attending Unavailable Jolliff, Radha S Primary Care Unavailable Jolliff, Radha S Primary Care Unavailable Urban Garcia Attending Unavailable Lydia Jiménez Referring Unavail able Lydia Jiménez Attending Unavail able Jolliff, Radha S Primary Care Unavailable DarianausRito Attending Unavailable Jolliff, Radha S Primary Care Unavailable Rito Lundberg Referring Unavailable Mireya Garcia Attending Unavailable Mireya Garcia Referring Unavailable Jolliff, Radha S Primary Care Unavailable Jolliff, Radha S Referring Unavailable Jolliff, Radha S Attending Unavailable Jolliff, Radha S Primary Care Unavailable Tarun, Daniel Referring Unavailable White, Cookie L Attending Unavailable White, Cookie L Consulting Unavailable White, Cookie L Admitting Unavailable Jolliff, Radha S Primary Care Unavailable Ochoa Johnson Attending Unavailable Tarun, Daniel Referring Unavailable White, Cookie L Consulting Unavailable White, Cookie L Admitting Unavailable Jolliff, Radha S Primary Care Unavailable Edmund Dey Consulting Unavailable Eduin Umaña Admitting Unavailable Jolliff, Radha S Primary Care Unavailable Xiao Berrios Attending Unavailable Adeli, Amir Consulting Unavailable Hinduja, Amy Consulting Unavailable Rod, Bethany Consulting Unavailable Zha, Lucy Consulting Unavailable Yani, Giancarlo Consulting Unavailable Wm, Patrizia Consulting Unavailable Alden Lazaro Consulting Unavailable Julius Flores Consulting Unavailable Fred Talbert Consulting Unavailable Jennifer Toledo Consulting Unavailable Joao Arredondo Consulting Unavailable Palak Garvin Consulting Unavailable Michelle Lyons Consulting Unavailable Indigo Coates Consulting UnavailLavelle Gillespie Consulting Unavailable [place] Heart Consulting Unavailable Abrahan Bejarano Consulting Unavailable Mindy Benítez Consulting Unavailable Ryan Riley Consulting Unavailable Ochoa Dobbs Consulting Unavailable Eduin Umaña Consulting Unavailable Xiao Berrios Consulting Unavailable Eduin Umaña Referring Unavailable Eduin Umaña Consulting Unavailable Eduin Umaña Admitting Unavailable Eduin Umaña Attending Unavailable Jolliff, Radha S Primary Care Unavailable Ochoa Johnson Attending Unavailable Alex Ochoa Consulting Unavailable Jolliff, Radha S Primary Care Unavailable Fran Rodriguez Attending Unavailable Yoni CASE WORK AIDE, Fior Consulting Unavailable Vallejo CASE WORK AIDE, Fior Referring Unavailable Roof CASE WORK AIDE, Oren H Referring Unavailable JacquesSumanth Attending Unavailable Jolliff, Radha S Primary Care Unavailable Roof CASE WORK AIDE, Oren H Consulting Unavailable Jolliff, Radha S Primary Care Unavailable Jolliff, Radha S Referring Unavailable Friend, Ede Attending Unavailable Friend, Ede Consulting Unavailable Jolliff, Radha S Primary Care Unavailable Fran Rodriguez Attending Unavailable Vallejo CASE WORK AIDE, Fior Consulting Unavailable Vallejo CASE WORK AIDE, Fior Referring Unavailable Jolliff, Radha S Referring Unavailable Ochoa Dobbs Attending Unavailable Jolliff, Radha S Primary Care Unavailable BaddourToni Attending Unavailable Baddour Toni Referring Unavailable Jolliff, Radha S Primary Care Unavailable Jolliff, Radha S Referring Unavailable Jacques, [place] Attending Unavailable Jolliff, Radha S Primary Care Unavailable Jolliff, Radha S Referring Unavailable Chen Rojas Attending Unavailable Jolliff, Radha S Primary Care Unavailable Jolliff, Radha S Referring Unavailable Rito Lundberg Attending Unavailable Jolliff, Radha S Primary Care Unavailable Jolliff, Radha S Referring Unavailable Lydia Jiménez Attending Unavail able Jolliff, Radha S Primary Care Unavailable Baddour, Toni Attending Unavailable Baddour, Toni Referring Unavailable Jolliff, Radha S Primary Care Unavailable Jolliff, Radha S Referring Unavailable Chen Rojas Attending Unavailable Jolliff, Radha S Primary Care Unavailable Baddour, Toni Attending Unavailable Baddour, Toni Referring Unavailable Jolliff, Radha S Primary Care Unavailable Baddour, Toni Attending Unavailable Baddour, Toni Referring Unavailable Jolliff, Radha S Primary Care Unavailable Jolliff, Radha S Referring Unavailable Sumanth Forte Attending Unavailable Jolliff, Radha S Primary Care Unavailable Jolliff, Radha S Referring Unavailable AtanasovMireya Attending Unavailable Jolliff, Radha S Primary Care Unavailable Jolliff, Radha S Referring Unavailable Atanasov Mireya Attending Unavailable Jolliff, Radha S Primary Care Unavailable Myo, Chalon Referring Unavailable Moy, Chalon Primary Care Unavailable Coreen Gerardo Attending Unavailable Baddour, Toni Referring Unavailable Baddour, Toni Attending Unavailable Jolliff, Radha S Primary Care Unavailable Baddour, Toni Referring Unavailable Baddour, Toni Attending Unavailable Jolliff, Radha S Primary Care Unavailable Jolliff, Radha S Referring Unavailable Fior Vallejo NP Attending Unavailable Jolliff, Radha S Primary Care Unavailable Eduin Umaña Referring Unavailable Eduin Umaña Consulting Unavailable Eduin Umaña Admitting Unavailable Ochoa Johnson Attending Unavailable Jolliff, Radha S Primary Care Unavailable ROSALINO PADRON Attending Unavailable NEREIDA MARJOSÉ Attending Unavailable JOLLIFF, RADHA JOSHUA Primary Care Unavailable NEREIDASOUMYAOUN Referring Unavailable JOLLIFF, RADHA JOSHUA Primary Care Unavailable NEREIDASOUMYAOUN Attending Unavailable JOLLIFF, RADHA JOSHUA Primary Care Unavailable BRAHMANDAM, SRUTI Attending Unavailable BRAHMANDAM, SRUTI Referring Unavailable JOLLIFF, RADHA JOSHUA Primary Care Unavailable BRAHMANDAM, SRUTI Referring Unavailable JOLLIFF, RADHA JOSHUA Primary Care Unavailable Allergies Allergy Classification Reported Allergen(s) Allergy Type Date of Onset Reaction(s) Facility DOPamine Antagonists (1 source) Metoclopramide; Translations: [metoclopramide] Drug Allergy [facility] (20 sources) Metoclopramide Drug Allergy 6 Shortness of Breath [facility] (20 sources) Metoclopramide; Translations: [METOCLOPRAMIDE] Drug Allergy 6 Anaphylaxis, Shortness of breath [facility] (1 source) Metoclopramide Drug Allergy [facility] Repository Medications Current Medications Medication Drug Class(es) Dates Sig (Normalized) Sig (Original) acetaminophen 325 mg / oxyCODONE hydrochloride 5 mg oral tablet (20 sources) Opioid Agonist Start: 09-16-2024 Oxycodone-Acetamin ophen 5-325 mg tablet Active 1 {tbl} PO THREE TIMES A DAY as needed September 16, 2024 12:00am Start: 04-22-2024 End: 04-24-2024 Oxycodone-Acetaminophen 5-32 5 mg tablet Discontinued 1 {tbl} PO THREE TIMES A DAY as needed April 22, 2024 1:00am April 24, 2024 8:26pm Start: 04-22-2024 End: 04-24-2024 Start: 09-08-2015 End: 01-08-2018 Oxycodone-Acetaminophen 1 TA BLET tablet Discontinued 1 - 2 {tbl} PO EVERY 4 HOURS NEEDED as needed for Pain September 08, 2015 12:00am January 08, 2018 4:11pm Start: 09-08-2015 End: 01-08-2018 Start: 09-08-2015 End: 01-08-2018 take 1 tablet by mouth every four hours as needed Oxycodone-Acetaminophen Discontinued 1 - 2 TABLET PO EVERY 4 HOURS NEEDED September 08, 2015 12:00am January 08, 2018 4:11pm take 1 tablet by ned th twice daily as needed oxyCODONE-acetaminophen (Percocet) 5-325 mg tablet Take 1 tablet by mouth 2 times a day as needed. Active take 1 tablet by ned th every six hours as needed for pain oxyCODONE-acetaminophen (Percocet) 5-325 MG tablet 1 tablet every 6 hours as needed for severe pain (7-10). Active [id number] actuat albuterol 0.09 mg/actuat metered dose inhaler (20 sources) beta2-Adrenergic Agonist Start: 06-03-2024 take 2 puff(s) by mouth every four hours as needed for wheezing albuterol 90 mcg/actuation inhaler INHALE 2 PUFFS BY MOUTH EVERY 4 HOURS NEEDED FOR SHORTNESS OF BREATH OR WHEEZING 06/03/2024 Active Start: 02-06-2024 End: 04-30-2024 Albuterol Sulfate (Ventolin Hfa) 90 mcg/actuation HFA aerosol inhaler Discontinued 2 NMA INHALATION Q4H as needed for shortness of breath or wheezing February 06, 2024 1:00am April 30, 2024 2:31pm Start: 02-06-2024 End: 04-30-2024 Start: 10-15-2018 End: 06-26-2019 Albuterol Sulfate 1 INHALER inhaler Discontinued 2 NMA INHALATION EVERY 4 HOURS NEEDED as needed for Wheezing October 15, 2018 12:00am June 26, 2019 2:15pm Start: 10-15-2018 End: 06-26-2019 Start: 10-15-2018 End: 06-26-2019 take 1 puff(s) by inhalation every four hours as needed Albuterol Sulfate Discontinued 2 PUFF INHALATION EVERY 4 HOURS NEEDED October 15, 2018 12:00am June 26, 2019 2:15pm amLODIPine 5 mg oral tablet (20 sources) Dihydropyridine Calcium Channel Renuka Start: 05-02-2023 End: 05-06-2024 take 1 tablet by mouth once daily Amlodipine 5 mg tablet Active 5 mg PO daily March 13, 2024 1:00am Start: 02-27-2023 End: 04-25-2023 take 1 tablet by mouth once daily Amlodipine 5 mg tablet Discontinued 5 mg PO DAILY February 27, 2023 1:00am April 25, 2023 3:47pm Start: 01-25-2022 take 10 mg by mouth once daily Amlodipine Active 10 MG PO DAILY January 25, 2022 12:00am Start: 09-12-2021 End: 01-25-2022 take 1 tablet by mouth once daily Amlodipine 5 mg tablet Discontinued 5 mg PO DAILY September 12, 2021 12:00am January 25, 2022 9:55am Start: 09-07-2021 End: 09-12-2021 take 1 tablet by mouth once daily Amlodipine 2.5 mg tablet Discontinued 2.5 mg PO DAILY September 07, 2021 2:48pm September 12, 2021 9:17am Start: 07-18-2021 take 2.5 mg by mouth once zach y Amlodipine Active 2.5 MG PO DAILY July 18, 2021 11:03am Start: 05-03-2015 End: 01-08-2018 take 1 tablet by mouth once daily Amlodipine 5 MG tablet Discontinued 5 mg PO DAILY May 03, 2015 1:00am January 08, 2018 4:38pm atorvastatin 80 mg oral tablet (20 sources) HMG-CoA Reductase Inhibitor Start: 04-19-2018 End: 11-04-2023 take 1 tablet by mouth at bedtime Atorvastatin (Lipitor) 80 MG tablet Active 80 mg PO AT BEDTIME September 04, 2021 6:28am cholesterol augmented betamethasone 0.5 mg/ml topical lotion (20 sources) Corticosteroid Start: 08-13-2023 betamethasone, augmented, (Diprolene) 0.05 % lotion APPLY TO RASH ON THE TRUNK OR SCALP 1-2 TIMES DAILY NEEDED 08/13/2023 Active bismuth subsalicylate 262 mg chewable tablet (14 sources) Bismuth Start: 04-02-2024 take 2 tablets by mouth three times daily bismuth subsalicylate (Pepto Bismol) 262 mg chewable tablet CHEW AND SWALLOW 2 TABLETS BY MOUTH 3 TIMES A DAY for 2 weeks. max 16 tablets per 24 hours 04/02/2024 Active Start: 04-02-2024 End: 04-16-2024 take 1 tablet by mouth every twenty-four hours Bismuth Subsalicylate 262 mg tablet,chewable Discontinued 2 {tbl} PO THREE TIMES A DAY 84 14 April 02, 2024 1:00am April 15, 2024 1:00am April 16, 2024 1:12am do not exceed 16 tabs per 24 hrs Blood-Glucose Meter,Continuo us (Dexcom G6 Dietetics Teacher) misc (20 sources) Start: 07-26-2020 Blood-Glucose Meter,Continuous (Dexcom G6 Dietetics Teacher) misc Active 0 .ROUTE .MEDSUPPLY July 26, 2020 12:36pm As directed Start: 07-26-2020 Blood-Glucose Meter,Continuous (Dexcom G6 Dietetics Teacher) misc Active 0 .ROUTE .MEDSUPPLY July 25, 2020 11:00pm As directed Start: 07-26-2020 Blood-Glucose Meter,Continuous (Dexcom G6 Dietetics Teacher) [facility] Active 0 .ROUTE .MEDSUPPLY 1 July 26, 2020 12:00am As directed Blood-Glucose Sensor (Dexcom G6 Sensor) device (20 sources) Start: 02-25-2023 Blood-Glucose Sensor (Dexcom G6 Sensor) device Active 0 .ROUTE .MEDSUPPLY 1 February 25, 2023 12:46pm As directed Start: 02-25-2023 Blood-Glucose Sensor (Dexcom G6 Sensor) device Active 0 .ROUTE .MEDSUPPLY 1 February 25, 2023 11:46am As directed Start: 12-29-2021 End: 02-25-2023 Blood-Glucose Sensor (Dexcom G6 Sensor) device Discontinued 0 .ROUTE .MEDSUPPLY 3 December 29, 2021 12:58pm February 25, 2023 12:47pm As directed Start: 12-29-2021 End: 02-25-2023 Blood-Glucose Sensor (Dexcom G6 Sensor) device Discontinued 0 .ROUTE .MEDSUPPLY 3 December 29, 2021 11:58am February 25, 2023 11:47am As directed Start: 12-29-2021 Blood-Glucose Sensor (Dexcom G6 Sensor) device Active 0 .ROUTE .MEDSUPPLY 3 December 29, 2021 12:58pm As directed Start: 12-29-2021 Blood-Glucose Sensor (Dexcom G6 Sensor) device Active 0 .ROUTE .MEDSUPPLY 3 December 29, 2021 11:58am As directed Start: 06-01-2021 End: 12-29-2021 Blood-Glucose Sensor (Dexcom G6 Sensor) device Discontinued 0 .ROUTE .MEDSUPPLY June 01, 2021 2:53pm December 29, 2021 12:58pm As directed Start: 06-01-2021 End: 12-29-2021 Blood-Glucose Sensor (Dexcom G6 Sensor) device Discontinued 0 .ROUTE .MEDSUPPLY June 01, 2021 1:53pm December 29, 2021 11:58am As directed Start: 06-01-2021 Blood-Glucose Sensor (Dexcom G6 Sensor) device Active 0 .ROUTE .MEDSUPPLY June 01, 2021 2:53pm As directed Start: 02-02-2021 End: 06-01-2021 Blood-Glucose Sensor (Dexcom G6 Sensor) device Discontinued 0 .ROUTE .MEDSUPPLY February 02, 2021 12:53pm June 01, 2021 1:53pm As directed Start: 02-02-2021 End: 06-01-2021 Blood-Glucose Sensor (Dexcom G6 Sensor) device Discontinued 0 .ROUTE .MEDSUPPLY February 02, 2021 1:53pm June 01, 2021 2:53pm As directed Start: 07-26-2020 End: 02-02-2021 Blood-Glucose Sensor (Dexcom G6 Sensor) device Discontinued 0 .ROUTE .MEDSUPPLY July 26, 2020 12:37pm February 02, 2021 1:58pm As directed Start: 07-26-2020 End: 02-02-2021 Blood-Glucose Sensor (Dexcom G6 Sensor) device Discontinued 0 .ROUTE .MEDSUPPLY July 25, 2020 11:00pm February 02, 2021 12:58pm As directed Start: 07-26-2020 End: 02-02-2021 Blood-Glucose Sensor (Dexcom G6 Sensor) device Discontinued 0 .ROUTE .MEDSUPPLY July 26, 2020 12:00am February 02, 2021 1:58pm As directed Blood-Glucose Transmitter (Dexcom G6 Transmitter) device (20 sources) Start: 12-29-2021 Blood-Glucose Transmitter (Dexcom G6 Transmitter) device Active 0 .ROUTE .MEDSUPPLY December 29, 2021 12:58pm As directed Start: 12-29-2021 Blood-Glucose Transmitter (Dexcom G6 Transmitter) device Active 0 .ROUTE .MEDSUPPLY December 29, 2021 11:58am As directed Start: 06-01-2021 End: 12-29-2021 Blood-Glucose Transmitter (D excom G6 Transmitter) device Discontinued 0 .ROUTE .MEDSUPPLY June 01, 2021 3:34pm December 29, 2021 12:58pm As directed Start: 06-01-2021 End: 12-29-2021 Blood-Glucose Transmitter (D excom G6 Transmitter) device Discontinued 0 .ROUTE .MEDSUPPLY June 01, 2021 2:34pm December 29, 2021 11:58am As directed Start: 06-01-2021 Blood-Glucose Transmitter (Dexcom G6 Transmitter) device Active 0 .ROUTE .MEDSUPPLY 1 June 01, 2021 3:34pm As directed Start: 07-26-2020 End: 06-01-2021 Blood-Glucose Transmitter (D excom G6 Transmitter) device Discontinued 0 .ROUTE .MEDSUPPLY 1 July 26, 2020 12:37pm June 01, 2021 3:34pm As directed Start: 07-26-2020 End: 06-01-2021 Blood-Glucose Transmitter (D excom G6 Transmitter) device Discontinued 0 .ROUTE .MEDSUPPLY 1 July 25, 2020 11:00pm June 01, 2021 2:34pm As directed Start: 07-26-2020 End: 06-01-2021 Blood-Glucose Transmitter (D excom G6 Transmitter) device Discontinued 0 .ROUTE .MEDSUPPLY 1 July 26, 2020 12:00am June 01, 2021 3:34pm As directed Blood-Glucose,Dietetics Teacher,Cont (Dexcom G6 Dietetics Teacher) misc (2 sources) Start: 07-26-2020 Blood-Glucose,Dietetics Teacher,Cont (Dexcom G6 Dietetics Teacher) misc Active 0 .ROUTE .MEDSUPPLY 1 July 26, 2020 12:00am As directed busPIRone hydrochloride 10 m g oral tablet (20 sources) Start: 04-17-2018 End: 09-16-2024 take 1 tablet by mouth once daily Buspirone 10 mg tablet Active 10 mg PO .1-3 times daily September 16, 2024 10:06am pt states he usually takes 1 daily Start: 05-03-2015 End: 01-08-2018 take 2 tablets by mouth once daily Buspirone 5 MG tablet Discontinued 10 mg PO DAILY May 03, 2015 1:00am January 08, 2018 4:11pm Start: 05-03-2015 End: 01-08-2018 Start: 11-09-2008 End: 11-04-2023 take 1 tablet by mouth three times daily busPIRone (Buspar) 10 MG tablet Take 1 tablet (10 mg) by mouth 3 times daily. 90 tablet 10/05/2023 Active Comment on above: Take one(1) tablet t hree times daily by mouth as necessary clopidogrel 75 mg oral tablet (20 sources) [id number] Platelet Inhibitor Start: End: take 1 tablet by mouth in the morning clopidogrel (Plavix) 75 mg tablet Take 1 tablet (75 mg) by mouth early in the morning.. 04/27/2024 Active Start: 04-19-2018 End: 11-03-2018 take 1 tablet by mouth once daily Clopidogrel 75 MG tablet Discontinued 75 mg PO DAILY April 19, 2018 1:00am November 03, 2018 2:51pm Continuous Glucose Sensor (Dexcom G6 Sensor) misc (18 sources) Start: 10-01-2023 Continuous Glucose Sensor (Dexcom G6 Sensor) misc Dexcom G6 Sensor Mis, USE DIRECTED FOR CONTINUOUS BLOOD GLUCOSE MONITORING, CHANGE SENSOR EVERY 10 DAYS 10/01/2023 Active dapagliflozin 5 mg oral tablet (20 sources) Sodium-Glucose Cotransporter 2 Inhibitor Start: 10-06-2023 End: 10-05-2023 take 1 tablet by mouth once daily dapagliflozin propanediol (Farxiga) 5 mg Take 1 tablet (5 mg) by mouth once daily. 10/06/2023 Active Start: 10-04-2023 End: 11-05-2023 take 1 tablet by mouth once daily dapagliflozin propanediol (Farxiga) 5 mg Take 1 tablet (5 mg) by mouth once daily. 10/06/2023 Active Dexcom G6 Sensor device (12 sources) Start: 02-01-2024 Dexcom G6 Sens or device USE DIRECTED FOR CONTINUOUS BLOOD GLUCOSE MONITORING, CHANGE SENSOR EVERY 10 DAYS 02/01/2024 Active Dexcom G6 Sensor Mis (1 source) Start: 10-01-2023 Dexcom G6 Sens or Mis Dexcom G6 Sensor Mis, USE DIRECTED FOR CONTINUOUS BLOOD GLUCOSE MONITORING, CHANGE SENSOR EVERY 10 DAYS Start Date: 10/01/23 Status: Ordered doxycycline hyclate 100 mg oral capsule (20 sources) Tetracycline- class Drug Start: 06-10-2023 take 1 capsule by mouth twice daily doxycycline (Vibramycin) 100 MG capsule Take 100 mg by mouth 2 times daily. 06/10/2023 Active Start: 12-12-2022 take 150 mg by mouth twice daily Doxycycline Monohydrate Active 150 MG PO TWICE A DAY December 12, 2022 12:00am Start: 12-10-2022 End: 12-12-2022 take 1 tablet by mouth twice daily Doxycycline Hyclate 150 mg tablet Discontinued 150 mg PO TWICE A DAY December 10, 2022 12:00am December 12, 2022 3:58pm Start: 07-22-2020 End: 10-13-2020 Doxycycline Monohydrate 100 mg tablet Discontinued NMA PO July 22, 2020 12:00am October 13, 2020 3:54pm Start: 07-22-2020 End: 10-13-2020 Start: 07-22-2020 End: 10-13-2020 Doxycycline Monohydrate Disc ontinued TAB PO July 22, 2020 12:00am October 13, 2020 3:54pm DULoxetine 60 mg delayed release oral capsule (20 sources) Serotonin and Norepinephrine Reuptake Inhibitor Start: 10-06-2023 End: 10-05-2023 DULoxetine (Cymbalta) [address] capsule Take 1 capsule (60 mg) by mouth daily. Do not crush or chew. Do not start before October 06, 2023. 30 capsule 10/06/2023 Active Start: 04-17-2018 End: 11-05-2023 take 1 capsule by mouth once daily Duloxetine (Cymbalta) 60 MG capsule,delayed release(DR/EC) Active 60 mg PO DAILY April 17, 2018 1:00am Start: 11-09-2008 End: 01-08-2018 take 1 capsule by mouth once daily Duloxetine 30 MG capsule Discontinued 30 mg PO DAILY May 03, 2015 1:00am January 08, 2018 4:11pm Comment on above: Take one(1) tablet d aily by mouth empagliflozin 25 mg oral tablet (20 sources) Sodium-Glucose Cotransporter 2 Inhibitor Start: 11-27-19 End: 08-13-19 take 1 tablet by mouth once daily Empagliflozin (Jardiance) 25 mg tablet Active 25 mg PO DAILY August 12, 2024 12:23pm Start: 12-10-2022 End: 11-04-2023 take 1 tablet by mouth once daily Empagliflozin (Jardiance) 25 mg tablet Discontinued 25 mg PO DAILY September 23, 2023 1:32pm November 04, 2023 9:27am ergocalciferol 1.25 mg oral capsule (20 sources) Provitamin D2 Compound Start: 04-05-2023 ergocalciferol (Colleen min D-2) 1250 mcg (50,000 units) capsule Take 1 capsule (1,250 mcg) by mouth. 04/05/2023 Active Start: 04-05-2023 take 1 capsule by mo [facility] every week ergocalciferol (Vitamin D2) 1.25 MG (83597 UT) capsule Take 1 capsule by mouth 1 (one) time per week. 04/05/2023 Active fenofibrate 134 mg oral capsule (20 sources) Peroxisome Proliferator Receptor alpha Agonist Start: 08-19-2024 take 1 capsule by mouth once daily Fenofibrate Micronized 134 mg capsule Active 134 mg PO daily August 19, 2024 12:00am Start: 08-17-2024 End: 08-19-2024 take 1 tablet by mouth once daily Fenofibrate 120 mg tablet Discontinued 120 mg PO daily August 17, 2024 12:00am August 19, 2024 5:05pm Start: 10-14-2023 End: 08-17-2024 take 1 tablet by mouth once daily Fenofibrate 54 mg tablet Discontinued 54 mg PO DAILY February 23, 2024 7:49pm August 17, 2024 12:01pm ferrous sulfate 325 mg oral tablet (2 sources) Start: 03-02-2024 take 1 tablet by mouth once daily Ferrous Sulfate (Feosol) 325 mg (65 mg iron) tablet Active 325 mg PO DAILY March 02, 2024 1:00am furosemide 40 mg oral tablet (20 sources) Loop Diuretic Start: 06-20-2021 End: 06-23-2024 furosemide (Lasix) 40 mg tablet Take 1 tablet (40 mg) by mouth. 10/05/2023 Active Start: 06-20-2021 End: 06-23-2024 take 1 tablet by mouth once daily Furosemide (Lasix) 40 mg tablet Discontinued 40 mg PO DAILY May 11, 2022 5:57pm August 01, 2022 9:59pm Start: 10-13-2020 End: 10-19-2020 take 1 tablet by mouth every other day Furosemide (Lasix) 40 mg tablet Discontinued 40 mg PO every other day October 13, 2020 12:00am October 19, 2020 1:17pm Start: 10-13-2020 End: 10-19-2020 Start: 05-03-2015 End: 01-08-2018 take 1 tablet by mouth once daily Furosemide 40 MG tablet Discontinued 40 mg PO DAILY May 03, 2015 1:00am January 08, 2018 4:39pm glimepiride 4 mg oral tablet (20 sources) Sulfonylurea Start: 02-27-2023 End: 09-16-2024 take 1 tablet by mouth in the morning glimepiride (Amaryl) 4 mg tablet Take 1 tablet (4 mg) by mouth early in the morning.. 09/06/2023 Active Start: 02-02-2021 End: 10-08-2022 take 1 tablet by mouth twice daily Glimepiride (Amaryl) 4 mg tablet Discontinued 4 mg PO TWICE A DAY 180 March 12, 2022 9:12am October 08, 2022 2:23pm Start: 07-22-2020 End: 10-08-2022 take 1 tablet by mouth once daily Glimepiride 4 mg tablet Discontinued 4 mg PO DAILY July 22, 2020 12:00am February 02, 2021 1:58pm glipiZIDE 5 mg oral tablet (20 sources) Sulfonylurea Start: 10-06-2023 End: 10-05-2023 glipiZIDE (Glucotrol) 5 mg tablet Take 1 tablet (5 mg) by mouth. 10/06/2023 Active Start: 10-04-2023 End: 11-05-2023 glipiZIDE (Glucotrol) 5 mg t ablet Take 1 tablet (5 mg) by mouth. 10/06/2023 Active Start: 05-03-2015 End: 09-09-2015 take 1 tablet by mouth once daily Glipizide 5 MG tablet Discontinued 5 mg PO DAILY@0730 May 03, 2015 1:00am September 09, 2015 11:53am Infusion Set For Insulin Pum p (14 sources) Start: 10-08-2022 Infusion Set F or Insulin Pump Active 0 .Route October 07, 2022 11:00pm As directed Start: 10-08-2022 Infusion Set F or Insulin Pump Active 0 .Route October 08, 2022 12:00am As directed Start: 10-08-2022 Infusion Set F or Insulin Pump Active 0 .ROUTE October 08, 2022 12:00am As directed Infusion Set For Insulin Pum p infusion set (2 sources) Start: 10-08-2022 Infusion Set F or Insulin Pump infusion set Active 0 .Route October 08, 2022 12:00am As directed Insulin Pump Controller (14 sources) Start: 10-08-2022 Insulin Pump C ontroller Active 0 .Route October 07, 2022 11:00pm As directed Start: 10-08-2022 Insulin Pump C ontroller Active 0 .Route October 08, 2022 12:00am As directed Start: 10-08-2022 Insulin Pump C ontroller Active 0 .ROUTE October 08, 2022 12:00am As directed Insulin Pump Controller misc (2 sources) Start: 10-08-2022 Insulin Pump C ontroller misc Active 0 .Route October 08, 2022 12:00am As directed insulin, regular, human 500 unt/ml injectable solution (20 sources) Insulin Start: 05-30-2024 HumuLIN R U-50 0, Conc, Insulin 500 unit/mL CONCENTRATED injection INJECT 75 UNITS DAILY VIA CONTINUOUS SUBCUTANEOUS INFUSION. DISCARD VIAL AFTER 40 DAYS 05/30/2024 Active Start: 10-05-2023 End: 11-04-2023 insulin regular (HumuLIN R,NovoLIN R) 100 UNIT/ML injection Inject 0.2 mL (20 Units) under the skin in the morning and 0.2 mL (20 Units) at noon and 0.2 mL (20 Units) in the evening. Inject with meals. 18 mL 10/05/2023 Active Start: 10-04-2023 End: 10-05-2023 inject 20 [IU] by subcutaneous injection three times daily at mealtime 20 Units, SubCUTAneous, 3 times daily with meals, First dose on Sat10/04/23 at 0800 Start: 10-02-2023 Humulin R (CON CENTRATED) 500 units/mL 20 mL VIAL* INJECT 75 UNITS UNDER THE SKIN VIA CONTINUOUS INFUSION DAILY Start Date: 10/02/23 Status: Ordered Start: 09-03-2022 End: 11-11-2023 Insulin Regular Hum U-500 Co nc (Humulin R U-500 (Conc) Insulin) 500 unit/mL solution Discontinued 75 U continuous subcutaneous infusion DAILY December 04, 2022 7:47am November 11, 2023 7:49am levoFLOXacin 500 mg oral tablet (20 sources) Quinolone Antimicrobial Start: 07-14-2024 End: 07-21-2024 take 1 tablet by mouth once daily, then take 1 tablet by mouth once daily at mealtime levoFLOXacin (Levaquin) 500 mg tablet Indications: ILD (interstitial lung disease) (Multi) Take 1 tablet (500 mg) by mouth once daily for 7 days. Take 1 pill daily with food. 7 tablet 07/14/2024 07/21/2024 Active Start: 10-15-2018 End: 11-03-2018 take 1 tablet by mouth once daily Levofloxacin 750 MG tablet Discontinued 750 mg PO DAILY October 15, 2018 12:00am November 03, 2018 2:51pm levothyroxine sodium 0.112 mg oral tablet (20 sources) l-Thyroxine Start: 04-24-2024 take 1 tablet by mouth once daily Levothyroxine 112 mcg tablet Active 112 ug PO DAILY April 24, 2024 1:00am Start: 10-06-2023 End: 10-05-2023 levothyroxine (Synthroid, Le voxyl) 112 MCG tablet Take 1 tablet (112 mcg) by mouth every morning (before breakfast). Do not start before October 06, 2023. 30 tablet 10/06/2023 Active Start: 10-04-2023 End: 11-05-2023 levothyroxine (Synthroid, Le voxyl) 112 MCG tablet Take 1 tablet (112 mcg) by mouth every morning (before breakfast). Do not start before October 06, 2023. 30 tablet 10/06/2023 Active Start: 10-01-2023 take 1 tablet by ned th once daily levothyroxine 112 mcg (0.112 mg) oral tablet TAKE 1 TABLET BY MOUTH EVERY DAY Start Date: 10/01/23 Status: Ordered Start: 05-03-2015 End: 03-13-2024 Levothyroxine 125 MCG tablet Discontinued 112 ug PO DAILY May 03, 2015 1:00am March 13, 2024 12:28pm Start: 05-03-2015 End: 04-24-2024 take 1 tablet by mouth once daily Levothyroxine 125 mcg tablet Discontinued 125 ug PO DAILY March 13, 2024 12:25pm April 24, 2024 8:20pm Start: 07-02-2005 take 1 tablet by ned th once daily LEVOXYL 100 MCG TAB Take one(1) tablet daily by mouth 0 07/02/2005 Active Comment on above: Take one(1) tablet d aily by mouth lisinopril 40 mg oral tablet (20 sources) Angiotensin Converting Enzyme Inhibitor Start: 04-07-2024 End: 04-12-2024 take 1 tablet by mouth once daily Lisinopril 40 mg tablet Active 40 mg PO DAILY April 12, 2024 1:00am Start: 11-13-2023 End: 04-07-2024 take 2 tablets by mouth once daily Lisinopril 20 mg tablet Discontinued 40 mg PO DAILY November 13, 2023 12:00am April 07, 2024 9:12am Start: 10-17-2023 End: 04-07-2024 take 1 tablet by mouth once daily Lisinopril 20 mg tablet Discontinued 20 mg PO DAILY October 17, 2023 2:08pm November 13, 2023 7:43pm Start: 10-17-2023 End: 10-17-2023 take 1 tablet by mouth once daily Lisinopril 40 mg tablet Discontinued 40 mg PO DAILY October 17, 2023 12:00am October 17, 2023 2:09pm Start: 01-08-2018 End: 01-23-2022 take 1 tablet by mouth once daily Lisinopril 40 mg tablet Discontinued 40 mg PO DAILY April 03, 2021 12:41pm January 23, 2022 8:35am blood pressure Start: 01-08-2018 End: 08-01-2022 take 1 tablet by mouth twice daily Lisinopril 40 mg tablet Discontinued 40 mg PO TWICE A DAY January 23, 2022 8:35am August 01, 2022 9:59pm blood pressure Start: 06-29-2005 End: 01-08-2018 take 1 tablet by mouth once daily Lisinopril 20 MG tablet Discontinued 20 mg PO DAILY May 03, 2015 1:00am January 08, 2018 4:38pm Comment on above: Take one(1) tablet d aily by mouth 24 hr metoprolol succinate 100 mg extended release oral tablet (20 sources) beta-Adrenergic Renuka Start: 03-27-2024 take 1 tablet by mouth once daily Metoprolol Succinate 100 mg tablet extended release 24 hr Active 100 mg PO DAILY March 27, 2024 10:30am Start: 10-06-2023 End: 10-05-2023 metoprolol succinate XL (Top rol-XL) 100 MG 24 hr tablet Take 1 tablet (100 mg) by mouth daily. Do not crush or chew. Do not start before October 06, 2023. 30 tablet 10/06/2023 Active Start: 10-02-2023 End: 10-03-2023 metoprolol succinate 100 mg oral TABLET extended release Start: 10/03/23 8:00:00 AM EDT, Dose = 100 mg, = 2 tab(s), Oral, 0, 10/02/23 1:37:00 EDT Start Date: 10/03/23 Stop Date: 10/03/23 Status: Completed Start: 10-01-2023 Metoprolol Suc cinate ER 100 mg oral TABLET extended release Dose : 100 mg = 1 tab(s), Oral, qDay, # 30 tab(s), 0 Refill(s) Start Date: 10/01/23 Status: Ordered Start: 04-07-2020 End: 03-27-2024 take 1 tablet by mouth once daily Metoprolol Succinate 100 mg tablet extended release 24 hr Discontinued 100 mg PO DAILY 90 January 15, 2023 12:42pm March 27, 2024 10:30am pantoprazole 40 mg delayed release oral tablet (20 sources) Proton Pump Inhibitor Start: 04-30-2024 End: 07-22-2024 take 1 tablet by mouth twice daily Pantoprazole (Protonix) 40 mg tablet,delayed release (DR/EC) Active 40 mg PO TWICE A DAY 60 July 22, 2024 7:56am Start: 10-06-2023 End: 04-12-2024 take 1 tablet by mouth twice daily Pantoprazole (Protonix) 40 mg tablet,delayed release (DR/EC) Discontinued 40 mg PO TWICE A DAY 60 April 07, 2024 10:17am April 12, 2024 2:45pm Start: 06-29-2005 End: 07-22-2024 take 1 tablet by mouth once daily Pantoprazole (Protonix) 40 mg tablet,delayed release (DR/EC) Discontinued 40 mg PO DAILY April 12, 2024 1:00am April 30, 2024 2:32pm Comment on above: Take one(1) tablet d aily by mouth Pen Needle, Diabetic (20 sources) Start: 12-22-2020 Pen Needle, Diabetic Active 0 EACH .ROUTE .MEDSUPPLY 1200 December 22, 2020 2:22pm As directed Start: 12-22-2020 Pen Needle, Di abetic Active 0 EACH .ROUTE .MEDSUPPLY 1200 December 21, 2020 11:00pm As directed Start: 12-22-2020 Pen Needle, Di abetic Active 0 EACH .ROUTE .MEDSUPPLY 1200 December 22, 2020 12:00am As directed potassium citrate 10 meq extended release oral tablet (20 sources) Start: 01-16-2023 End: 02-27-2023 take 1 tablet by mouth twice daily potassium citrate CR (Urocit-K-10) 10 mEq ER tablet Take 1 tablet (10 mEq) by mouth twice a day. 01/16/2023 Active predniSONE 5 mg oral tablet (20 sources) Start: 09-16-2024 Prednisone 5 m g tablet Active 0 PO .COMPLEX September 16, 2024 12:00am Prednisone Burst orally; Start: 08-07-2024 End: 11-19-2024 take 4 tablets by mouth once daily, then take 3 tablets by mouth once daily, then take 2 tablets by mouth once daily, then take 1 tablet by mouth once daily predniSONE (Deltasone) 5 mg tablet Indications: ILD (interstitial lung disease) (Multi) Take 4 tablets (20 mg) by mouth once daily for 30 days, THEN 3 tablets (15 mg) once daily for 30 days, THEN 2 tablets (10 mg) once daily for 30 days, THEN 1 tablet (5 mg) once daily for 14 days. 284 tablet 08/07/2024 11/19/2024 Active Start: 07-14-2024 take 2 tablets by mo uth once daily predniSONE (Deltasone) 20 mg tablet Indications: ILD (interstitial lung disease) (Multi) Take 2 tablets (40 mg) by mouth once daily. 10 tablet 07/14/2024 Active Start: 06-10-2024 End: 09-16-2024 take 10 mg by mouth once daily Prednisone 20 mg tablet Discontinued 10 mg PO daily June 10, 2024 7:07pm September 16, 2024 10:08am Start: 06-10-2024 take 0.5 tablet by m outh in the morning predniSONE (Deltasone) 20 mg tablet Take 0.5 tablets (10 mg) by mouth early in the morning.. 06/10/2024 Active Start: 04-15-2024 End: 06-10-2024 Prednisone 20 mg tablet Disc ontinued 20 mg PO daily 35 May 15, 2024 1:00am June 10, 2024 7:10pm Take 2 tablets daily for 7 days then 1.5 tablet daily for 7 days, then 1 tablet daily for 7 days, then 0.5 tablet for 7 days. spironolactone 50 mg oral tablet (20 sources) Aldosterone Antagonist Start: 05-21-2022 End: 05-21-2024 take 1 tablet by mouth once daily spironolactone (Aldactone) 50 mg tablet Take 1 tablet (50 mg) by mouth once daily. 09/06/2023 Active Start: 05-11-2022 End: 05-21-2022 take 1 tablet by mouth once daily Spironolactone 25 mg tablet Discontinued 25 mg PO DAILY May 11, 2022 1:00am May 21, 2022 4:41pm tamsulosin hydrochloride 0.4 mg oral capsule (20 sources) alpha-Adrenergic Renuka Start: 12-11-2023 take 1 capsule by mouth once daily tamsulosin (Flomax) 0.4 MG 24 hr capsule Take 0.4 mg by mouth daily. 12/11/2023 Active Start: 10-06-2023 End: 10-05-2023 take 1 capsule by mouth once daily tamsulosin (Flomax) 0.4 MG 24 hr capsule Take 1 capsule (0.4 mg) by mouth daily. 30 capsule 10/06/2023 10/05/2023 Discontinued Start: 09-08-2015 End: 11-05-2023 take 1 capsule by mouth once daily Tamsulosin 0.4 MG capsule Active 0.4 mg PO DAILY September 08, 2015 12:00am ticagrelor 90 mg oral tablet (18 sources) Start: 05-08-2024 End: 05-08-2025 Brilinta 90 mg tablet 1 tablet (90 mg). 05/08/2024 05/08/2025 Active traMADol hydrochloride 50 mg oral tablet (20 sources) Opioid Agonist Start: 12-10-2022 traMADol (Ultr am) 50 mg tablet Take 1 tablet (50 mg) by mouth. 12/10/2022 Active Completed/Discontinued Medications Medication Drug Class(es) Dates Sig (Normalized) Sig (Original) acetaminophen 325 mg / HYDROcodone bitartrate 5 mg oral tablet (20 sources) Opioid Agonist Start: 02-14-2023 End: 05-06-2024 HYDROcodone-acetami nophen ([place]) 5-325 MG tablet Take 1 tablet by mouth 2-3 times daily as needed for pain 02/14/2023 05/06/2024 Discontinued (Other) Start: 02-14-2023 End: 09-16-2024 Hydrocodone-Acetaminophen 5- 325 mg tablet Discontinued 1 {tbl} PO TWICE A DAY as needed for pain February 14, 2023 1:00am September 16, 2024 10:07am Start: 02-14-2023 Start: 02-14-2023 take 1 tablet by ned th twice daily Hydrocodone-Acetaminophen Active 1 TABLE T PO TWICE A DAY February 14, 2023 1:00am ALPRAZolam 0.5 mg disintegrating oral tablet (2 sources) Benzodiazepine Start: 05-06-2024 End: 05-06-2024 take 1 tablet by mouth once 0.5 mg, Oral, Once, On Sat05/06/24 at 1100, For 1 dose, Using dry hands, place tablet on top of tongue and allow to disintegrate. Administration with water is not necessary. amoxicillin 500 mg oral capsule (5 sources) Penicillin-class Antibacterial Start: 04-02-2024 End: 04-15-2024 take 1 capsule by mouth twice daily Amoxicillin 500 mg capsule Discontinued 500 mg PO TWICE A DAY 28 April 02, 2024 1:00am April 15, 2024 1:00am April 15, 2024 4:21pm apixaban 5 mg oral tablet (20 sources) Factor Xa Inhibitor Start: 03-30-2020 End: 08-31-2024 take 1 tablet by mouth twice daily Apixaban (Eliquis) 5 mg tablet Discontinued 5 mg PO TWICE A DAY July 21, 2023 12:45pm August 31, 2024 8:44am aspirin 81 mg delayed release oral tablet (20 sources) Platelet Aggregation Inhibitor, Nonsteroidal Anti-inflammatory Drug Start: 05-06-2024 End: 05-07-2024 take 81 mg by mouth once daily 81 mg, Oral, Daily, First dose on Sat05/06/24 at 1100, Do not crush, chew, or split. Start: 11-27-2023 End: 03-13-2024 take 1 tablet by mouth once daily Aspirin 325 mg tablet Active 325 mg PO DAILY March 13, 2024 12:25pm Start: 10-06-2023 End: 10-05-2023 take 1 tablet by mouth once daily aspirin 81 MG EC tablet Take 1 tablet (81 mg) by mouth daily. 30 tablet 10/06/2023 10/05/2023 Discontinued Start: 10-04-2023 End: 11-05-2023 aspirin 81 MG EC tablet Take 1 tablet (81 mg) by mouth daily. Do not start before October 06, 2023. 30 tablet 10/06/2023 11/05/2023 Active Start: 03-30-2020 End: 05-06-2024 take 1 tablet by mouth once daily Aspirin 81 MG tablet,chewable Discontinued 81 mg PO DAILY@08March 30, 2020 1:00am November 27, 2023 3:20pm Start: 11-03-2018 End: 03-30-2020 take 1 tablet by mouth once daily Aspirin (Rambo Aspirin) 325 mg tablet Discontinued 325 mg PO DAILY November 03, 2018 12:00am March 30, 2020 9:49am Start: 10-15-2018 End: 11-03-2018 Aspirin 81 MG tablet,chewabl e Discontinued 325 mg PO DAILY@08October 15, 2018 1:44pm November 03, 2018 2:50pm Start: 10-15-2018 End: 11-03-2018 take 325 mg by mouth once daily Aspirin Discontinued 3 25 MG PO DAILY@0800 October 15, 2018 1:44pm November 03, 2018 2:50pm Start: 04-19-2018 End: 11-03-2018 take 1 tablet by mouth once daily Aspirin 81 MG Tab.Chew Discontinued 81 mg PO DAILY@799April 19, 2018 1:00am October 15, 2018 1:44pm Start: 01-08-2018 End: 01-08-2018 take 1 tablet by mouth once daily Aspirin 325 mg tablet Discontinued 325 mg PO DAILY January 08, 2018 12:00am January 08, 2018 4:38pm Start: 05-03-2015 End: 09-09-2015 take 1 tablet by mouth once daily Aspirin 325 MG tablet Discontinued 325 mg PO DAILY@0800 May 03, 2015 1:00am September 09, 2015 11:53am atenolol 100 mg oral tablet (20 sources) beta-Adrenergic Renuka Start: 05-03-2015 End: 04-07-2020 take 1 tablet by mouth twice daily Atenolol 100 mg tablet Discontinued 100 mg PO TWICE A DAY January 08, 2018 4:10pm January 08, 2018 4:37pm Start: 07-02-2005 End: 04-07-2020 take 1 tablet by mouth once daily Atenolol 100 mg tablet Discontinued 100 mg PO DAILY January 12, 2019 8:53am April 07, 2020 3:54pm blood pressure Comment on above: Take one(1) tablet d aily by mouth cholecalciferol 9.52 unt/ml / glucose 357 mg/ml oral gel (2 sources) Vitamin D Start: End: clarithromycin 500 mg oral tablet (5 sources) Macrolide Antimicrobial Start: End: take 1 tablet by mouth twice daily Clarithromycin 500 mg tablet Discontinued 500 mg PO TWICE A DAY April 02, 2024 1:00am April 15, 2024 1:00am April 15, 2024 4:22pm 12 hr dextromethorphan hydrobromide 60 mg / guaiFENesin 1200 mg extended release oral tablet (20 sources) Uncompetitive T-gjghnp-M-aspartate Receptor Antagonist, Sigma-1 Agonist Start: End: Dextromethorphan-Guai fenesin 60-1,200 mg tablet extended release 12 hr Discontinued 1 {tbl} PO DAILY April 24, 2024 1:00am April 30, 2024 3:23pm Start: 04-15-2024 take 1 tablet by ned th every twelve hours Mucinex DM 60-1,200 mg tablet extended release 12 hr Take 1 tablet by mouth every 12 hours. 04/15/2024 Active Start: 04-15-2024 End: 04-24-2024 Dextromethorphan-Guaifenesin 60-1,200 mg tablet extended release 12 hr Discontinued 1 {tbl} PO TWICE A DAY 14 April 15, 2024 1:00am April 24, 2024 8:28pm Start: 04-15-2024 End: 04-30-2024 24 hr dilTIAZem hydrochloride 120 mg extended release oral capsule (20 sources) Calcium Channel Renuka Start: 05-07-2023 End: 05-06-2024 take 1 capsule by mouth once daily, then take 1 capsule by mouth every twenty-four hours dilTIAZem CD (Cardizem CD) 120 MG 24 hr capsule Take 120 mg by mouth daily. 05/07/2023 05/06/2024 Discontinued (Other) Start: 04-25-2023 End: 05-02-2023 take 1 capsule by mouth once daily Diltiazem Hcl 120 mg capsule,extended release 24hr Discontinued 120 mg PO DAILY April 25, 2023 1:00am May 02, 2023 5:55pm docusate sodium 50 mg oral capsule (20 sources) Start: 09-08-2015 End: 01-08-2018 take 2 capsules by mouth twice daily Docusate Sodium 50 MG capsule Discontinued 100 mg PO TWICE A DAY September 08, 2015 12:00am January 08, 2018 4:10pm Start: 09-08-2015 End: 01-08-2018 0.5 ml dulaglutide 1.5 mg/ml auto-injector (20 sources) GLP-1 Receptor Agonist Start: 06-01-2021 End: 07-12-2021 Dulaglutide (Trulicity) 0.75 mg/0.5 mL pen injector Discontinued 0.75 mg SC EVERY WEEK 2 June 01, 2021 1:00am July 12, 2021 3:46pm not started yet Start: 06-01-2021 End: 07-12-2021 Start: 02-02-2021 End: 06-01-2021 Dulaglutide (Trulicity) 3 mg /0.5 mL pen injector Discontinued 3 MG SC EVERY WEEK 2 February 02, 2021 1:55pm June 01, 2021 3:00pm Start: 02-02-2021 End: 06-01-2021 Dulaglutide (Trulicity) 3 mg /0.5 mL pen injector Discontinued 3 mg SC EVERY WEEK 2 February 02, 2021 12:00am June 01, 2021 3:00pm Start: 02-02-2021 End: 06-01-2021 Start: 02-02-2021 End: 06-01-2021 Dulaglutide (Trulicity) 3 mg /0.5 mL pen injector Discontinued 3 MG SC EVERY WEEK 2 February 01, 2021 11:00pm June 01, 2021 2:00pm Start: 02-02-2021 End: 06-01-2021 Dulaglutide (Trulicity) 3 mg /0.5 mL pen injector Discontinued 3 MG SC EVERY WEEK 2 February 02, 2021 12:00am June 01, 2021 3:00pm Start: 12-22-2020 End: 02-02-2021 Dulaglutide (Trulicity) 1.5 mg/0.5 mL pen injector Discontinued 1.5 mg SC EVERY WEEK 6 December 22, 2020 12:00am February 02, 2021 1:55pm Start: 12-22-2020 End: 02-02-2021 Start: 07-22-2020 End: 12-22-2020 Dulaglutide (Trulicity) 0.75 mg/0.5 mL pen injector Discontinued 0.75 mg SC EVERY WEEK 2 July 22, 2020 12:00am December 22, 2020 2:52pm Start: 07-22-2020 End: 12-22-2020 glucagon (rdna) 1 mg injecti on (2 sources) Antihypoglycemic Agent Start: 10-03-2023 End: 10-05-2023 150 ml glucose 50 mg/ml inje ction (4 sources) Start: 10-03-2023 End: 10-05-2023 Start: 10-03-2023 End: 10-05-2023 12 hr guaiFENesin 1200 mg extended release oral tablet (2 sources) Start: 01-22-2024 End: 02-03-2024 take 1 tablet by mouth twice daily, then take 1 tablet by mouth every twelve hours Guaifenesin (Mucus Relief Er) 1,200 mg Tablet Extended Release 12hr Discontinued 1200 mg PO TWICE A DAY January 22, 2024 12:00am February 03, 2024 3:31pm hydroCHLOROthiazide 25 mg oral tablet (20 sources) Thiazide Diuretic Start: 01-08-2018 End: 06-20-2021 take 1 tablet by mouth once daily Hydrochlorothiazide 25 mg tablet Discontinued 25 mg PO DAILY April 03, 2021 12:41pm June 20, 2021 11:20am blood pressure 1.5 ml insulin glargine 300 unt/ml pen injector (20 sources) Insulin Analog Start: 08-01-2022 End: 08-15-2022 Insulin Glargine U-300 Conc (Toujeo Solostar U-300 Insulin) 300 unit/mL (1.5 mL) insulin pen Discontinued 55 U SC DAILY August 01, 2022 9:59pm August 15, 2022 8:08am Start: 04-03-2022 End: 08-01-2022 Insulin Glargine U-300 Conc (Toujeo Solostar U-300 Insulin) 300 unit/mL (1.5 mL) insulin pen Discontinued 50 U SC DAILY 4.5 April 03, 2022 9:05am August 01, 2022 9:59pm Start: 11-13-2021 End: 04-03-2022 Insulin Glargine U-300 Conc (Toujeo Solostar U-300 Insulin) 300 unit/mL (1.5 mL) insulin pen Discontinued 45 U SC DAILY November 13, 2021 3:32pm April 03, 2022 9:06am Start: 02-26-2021 End: 11-13-2021 Insulin Glargine U-300 Conc (Toujeo Solostar U-300 Insulin) 300 unit/mL (1.5 mL) insulin pen Discontinued 55 U SC DAILY February 26, 2021 1:00am November 13, 2021 3:34pm Start: 02-26-2021 End: 08-15-2022 Start: 10-13-2020 End: 12-22-2020 Insulin Glargine U-300 Conc 300 unit/mL (1.5 mL) insulin pen Discontinued 55 U SC DAILY October 13, 2020 3:54pm December 22, 2020 2:53pm Start: 04-13-2020 End: 10-13-2020 Insulin Glargine U-300 Conc 300 unit/mL (1.5 mL) insulin pen Discontinued 30 U SC TWICE A DAY April 13, 2020 11:07am October 13, 2020 3:55pm Start: 03-28-2020 End: 12-22-2020 Insulin Glargine U-300 Conc 300 UNIT/ML insulin pen Discontinued 45 U SQ DAILY March 28, 2020 1:00am April 13, 2020 11:07am insulin lispro 100 unt/ml injectable solution (20 sources) Insulin Analog Start: 08-15-2022 End: 09-03-2022 Insulin Lispro (Humalog U-100 Insulin) 100 unit/mL solution Discontinued 100 U continuous subcutaneous infusion .continuous 90 August 15, 2022 12:00am September 03, 2022 2:30pm Start: 08-15-2022 End: 09-03-2022 Start: 08-01-2022 End: 09-03-2022 Insulin Lispro (Humalog Kwik pen Insulin) 100 unit/mL insulin pen Discontinued 25 U SC 3 TIMES DAILY WITH MEALS August 01, 2022 9:59pm September 03, 2022 2:30pm Start: 06-29-2022 End: 08-01-2022 Insulin Lispro (Humalog Kwik pen Insulin) 100 unit/mL insulin pen Discontinued 15 U SC THREE TIMES A DAY 45 June 29, 2022 8:31am August 01, 2022 9:59pm Start: 11-13-2021 End: 06-29-2022 Insulin Lispro (Humalog Kwik pen Insulin) 100 unit/mL insulin pen Discontinued 15 U SC before meals November 13, 2021 12:00am June 29, 2022 8:32am Start: 11-13-2021 End: 09-03-2022 iopamidol (Isovue-300) 61 % injection 80 mL (2 sources) Start: 05-06-2024 End: 05-06-2024 80 mL, Intra-arTERial, IMG once PRN, contrast, Starting on Sat05/06/24 at 1356, For 1 dose iopamidol (Isovue-370) 76 % injection 75 mL (2 sources) Start: 02-06-2024 End: 02-06-2024 take 75 mL intravenously once as needed 75 mL, IntraVENous, IMG once PRN, contrast, Starting on Sat02/06/24 at 0757, For 1 dose labetalol hydrochloride 5 mg/ml injectable solution (2 sources) beta-Adrenergic Renuka Start: 10-04-2023 End: 10-05-2023 10 mg, IntraVENous, Every 10 min PRN, high blood pressure, Starting on Sat10/04/23 at 0618, For 2 doses, Give over 1-2 minutes; Hold for HR less than 65 bpm and notify provider. PRE thrombolytic administration give if SBP greater than 185 mmHg or DBP greater than 110 mmHg prior to planned administration. May repeat x1 if SBP greater than 185 mmHg or DBP greater than 110 mmHg. Notify physician if SBP greater than 185 mmHg or DBP greater than 110 mmHg after second dose. POST thrombolytic administration give if SBP greater than 180 mmHg or DBP greater than 105 mmHg. May repeat x1 if SBP greater than 180 mmHg or DBP greater than 105 mmHg. Notify physician if SBP greater than 180 mmHg or DBP greater than 105 mmHg after second dose. 10 ml lidocaine hydrochloride 10 mg/ml injection (2 sources) Antiarrhythmic, Amide Local Anesthetic Start: 05-06-2024 End: 05-06-2024 As needed, Starting on Sat05/06/24 at 1331, Intraprocedure Start: 05-06-2024 End: 05-06-2024 As needed, Starting on Sat at 1331, Intraprocedure 24 hr metFORMIN hydrochloride 500 mg extended release oral tablet (20 sources) Biguanide Start: 08-10-2021 End: 11-13-2021 Metformin 500 mg tablet extended release 24 hr Discontinued 1000 mg PO 2 times per day with meals 360 August 10, 2021 2:16pm November 13, 2021 3:34pm Start: 10-13-2020 End: 08-10-2021 Metformin 500 mg tablet exte nded release 24 hr Discontinued 1000 mg PO AT BEDTIME October 13, 2020 3:53pm August 10, 2021 2:23pm Start: 10-15-2018 End: 10-13-2020 take 1 tablet by mouth at bedtime Metformin 500 MG tablet Discontinued 500 mg PO AT BEDTIME October 15, 2018 12:00am October 13, 2020 3:55pm Start: 10-15-2018 End: 11-13-2021 Start: 10-15-2018 End: 11-13-2021 take 1000 mg by mouth once daily Metformin Active 1000 MG PO DAILY November 13, 2021 3:33pm Start: 09-08-2015 End: 09-09-2015 take 1 tablet by mouth once daily Metformin 1,000 MG tablet Discontinued 1000 mg PO DAILY September 08, 2015 12:00am September 09, 2015 11:53am End: 05-06-2024 take 1 tablet by mouth twice daily metFORMIN (Glucophage) 500 mg tablet Take 1 tablet (500 mg) by mouth 2 times daily (morning and late afternoon). Active metroNIDAZOLE 500 mg oral tablet (5 sources) Nitroimidazole Antimicrobial Start: 04-02-2024 End: 04-15-2024 take 1 tablet by mouth twice daily Metronidazole 500 mg tablet Discontinued 500 mg PO TWICE A DAY April 02, 2024 1:00am April 15, 2024 1:00am April 15, 2024 4:23pm nintedanib 150 mg oral capsule (5 sources) Kinase Inhibitor Start: 04-22-2024 End: 05-21-2024 take 1 capsule by mouth every twelve hours Nintedanib (Ofev) 150 mg capsule Discontinued 150 mg PO Q12H 60 April 22, 2024 1:00am May 21, 2024 11:49am potassium chloride 10 meq extended release oral tablet (20 sources) Start: 06-20-2021 End: 05-11-2022 take 2 tablets by mouth once daily Potassium Chloride 10 mEq tablet extended release Discontinued 20 meq PO DAILY 180 July 26, 2021 12:10pm May 11, 2022 5:57pm start 06/21/21 Start: 06-20-2021 End: 05-11-2022 SITagliptin 100 mg oral tablet (20 sources) Dipeptidyl Peptidase 4 Inhibitor Start: 01-08-2018 End: 07-22-2020 take 1 tablet by mouth once daily Sitagliptin Phosphate 100 mg tablet Discontinued 100 mg PO DAILY April 07, 2020 3:55pm July 22, 2020 3:49pm 1000 ml sodium chloride 9 mg/ml injection (12 sources) Start: 05-06-2024 End: 05-07-2024 take 50 mL intravenously every hour 50 mL/hr, IntraVENous, Continuous, Starting on Sat05/06/24 at 0900, Preprocedure Start: 10-04-2023 End: 10-04-2023 250 mL, IntraVENous, at 250 mL/hr, Administer over 1 Hours, Once, On Sat10/04/23 at 0630, For 1 dose Start: 10-04-2023 End: 10-04-2023 take 50 mL intravenously every hour 50 mL/hr, IntraVENous, Continuous, Starting on Sat10/04/23 at 0630 Start: 10-04-2023 End: 10-05-2023 take 5-40 mL intravenously every twelve hours 5-40 mL, IntraVENous, Every 12 hours, First dose on Sat10/04/23 at 0630, For Line Patency: Peripheral IV = 5 mL; Midline or Central Line = 10 mL/lumen. If following IV push medication, administer flush at same rate as the IV push. Flush volume is determined by type of infusion therapy being given. For non-viscous solutions use: Peripheral IV = 5 mL Midline or Central Line = 10 mL/lumen For viscous solutions (i.e. blood components, parenteral nutrition, contrast media, or after obtaining blood sample) use: Peripheral IV = 10 mL Midline or Central Line = 20 mL/lumen Start: 10-04-2023 End: 10-05-2023 take 100 mL intravenously every hour as needed, then take 20 mL intravenously every hour as needed 5-250 mL/hr, IntraVENous, PRN, if patient receiving piggyback infusions and maintenance fluids are not ordered OR KVO fluids to protect IV site / prevent frequent line interruptions / long duration, Starting on Sat10/04/23 at 0618, For piggyback infusion, administer at same rate as piggyback for a total of 25 mL. Enter 25 mL into dose field and piggyback rate into rate field of order. If piggyback is infusing at a rate less than 100 mL/hr, enter 25 mL into dose field and 100 mL/hr into rate field of order. For KVO fluids, enter rate of 20 mL/hr or less into rate field of order. Start: 10-04-2023 End: 10-05-2023 5-40 mL, IntraVENous, PRN, l ine care, After every IV line use, Starting on Sat10/04/23 at 0618, For Line Patency: Peripheral IV = 5 mL; Midline or Central Line = 10 mL/lumen. If following IV push medication, administer flush at same rate as the IV push. Flush volume is determined by type of infusion therapy being given. For non-viscous solutions use: Peripheral IV = 5 mL Midline or Central Line = 10 mL/lumen For viscous solutions (i.e. blood components, parenteral nutrition, contrast media, or after obtaining blood sample) use: Peripheral IV = 10 mL Midline or Central Line = 20 mL/lumen (20 sources) Start: 04-02-2024 End: 04-16-2024 Start: 03-02-2024 Start: 01-22-2024 End: 02-03-2024 Start: 02-25-2023 Start: 10-08-2022 Start: 12-29-2021 Start: 12-29-2021 End: 02-25-2023 Start: 06-01-2021 End: 12-29-2021 Start: 06-01-2021 End: 12-29-2021 Start: 06-01-2021 End: 04-30-2024 Start: 02-02-2021 End: 06-01-2021 Start: 12-22-2020 End: 04-30-2024 Start: 07-26-2020 Start: 07-26-2020 End: 02-02-2021 Start: 07-26-2020 End: 06-01-2021 Problems Active Problems Problem Classification Problem Date Documented Da te Episodic/Chronic Acute cerebrovascular disease (20 sources) Ischemic stroke; Translations: [Cerebral infarction, unspecified] Onset: 4 03-31-2023 Chronic Blindness and vision defects (20 sources) Diplopia; Translations: [Diplopia] Onset: 3 10-08-2022 Episodic Cardiac dysrhythmias (20 sources) Paroxysmal atrial fibrillation; Translations: [Paroxysmal atrial fibrillation] Onset: 0 Chronic Cardiac dysrhythmias (20 sources) Palpitations; Translations: [Palpitations] Onset: 4 03-06-2021 Episodic Chronic kidney disease (20 sources) Chronic kidney disease; Translations: [Chronic kidney disease, unspecified] Onset: 3 12-10-2022 Chronic Chronic kidney disease (1 source) Chronic kidney disease; Translations: [Chronic kidney disease, stage 3a] Onset: 5 Complications of surgical procedures or medical care (20 sources) Postoperative infection; Translations: [Infection following a procedure, unspecified, initial encounter] Onset: 4 12-10-2022 Episodic Congestive heart failure; nonhypertensive (20 sources) Congestive heart failure; Translations: [Heart failure, unspecified] Onset: 4 Chronic Comment on above: Stage I diastolic dy sfunction Coronary atherosclerosis and other heart disease (20 sources) History of non-ST segment elevation myocardial infarction; Translations: [Old myocardial infarction] Onset: 0 07-12-2021 Chronic Deficiency and other anemia (8 sources) Iron deficiency anemia due to blood loss; Translations: [Iron deficiency anemia secondary to blood loss (chronic)] 03-12-2024 Chronic Deficiency and other anemia (2 sources) Iron deficiency anemia secondary to blood loss (chronic); Translations: [Iron deficiency anemia secondary to blood loss (chronic)] Onset: 5 Chronic Deficiency and other anemia (5 sources) Anemia; Translations: [Anemia, unspecified] 03-27-2024 Episodic Diabetes mellitus with complications (20 sources) Hyperglycemia due to type 2 diabetes mellitus; Translations: [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 with hyperglycemia] Onset: 4 04-04-2020 Chronic Comment on above: both eyesmildexam Diabetes mellitus without complication (20 sources) 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; Translations: [Diabetes mellitus] Onset: 6 09-23-2015 Chronic Diabetes mellitus without complication (20 sources) Insulin pump present; Translations: [Presence of insulin pump (external) (internal)] Onset: 4 09-03-2022 Episodic Diseases of white blood cells (5 sources) Leukocytosis; Translations: [Elevated white blood cell count, unspecified] 04-12-2024 Chronic Disorders of lipid metabolism (20 sources) Hyperlipidemia; Translations: [Hyperlipidemia, unspecified] Onset: 4 Chronic Essential hypertension (20 sources) Hypertensive disorder; Translations: [Essential hypertension] Onset: 6 09-23-2015 Chronic Fluid and electrolyte disorders (20 sources) Lactic acidosis; Translations: [Acidosis] Onset: 4 Episodic Genitourinary congenital anomalies (19 sources) Multiple congenital cysts of kidney; Translations: [Cystic kidney disease, unspecified] Onset: 7 02-26-2007 Chronic Genitourinary symptoms and ill-defined conditions (20 sources) Microalbuminuria; Translations: [Proteinuria, unspecified] Onset: 3 12-10-2022 Episodic Hodgkin`s disease (20 sources) Hodgkin's disease (clinical); Translations: [Hodgkin lymphoma, unspecified, unspecified site] Onset: 6 09-20-2015 Chronic Comment on above: chemo and radiation Hyperplasia of prostate (19 sources) Benign prostatic hypertrophy with outflow obstruction; Translations: [Benign prostatic hyperplasia with lower urinary tract symptoms] Onset: 6 09-21-2015 Chronic Malaise and fatigue (20 sources) Fatigue; Translations: [Other fatigue] Onset: 4 02-16-2021 Episodic Occlusion or stenosis of precerebral arteries (20 sources) Carotid artery stenosis; Translations: [Occlusion and stenosis of unspecified carotid artery] Onset: 4 10-11-2021 Chronic Comment on above: CTA- L CCA 70% 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 Other aftercare (5 sources) Drug therapy finding; Translations: [long term care pharmacist (current) use of anticoagulants] 03-05-2024 Episodic Other aftercare (10 sources) Long-term current use of anticoagulant; Translations: [nursing home (current) use of anticoagulants] 11-24-2023 Episodic Other aftercare (1 source) nursing home (current) use of insulin; Translations: [long term care pharmacist (current) use of insulin] Onset: 5 Episodic Other circulatory disease (20 sources) Carotid bruit; Translations: [Other specified symptoms and signs involving the circulatory and respiratory systems] Onset: 4 09-07-2021 Episodic Other circulatory disease (20 sources) Other specified symptoms and signs involving the circulatory and respiratory systems; Translations: [Other symptoms involving cardiovascular system] Episodic Other circulatory disease (9 sources) History of transient ischemic attack; Translations: [Personal history of transient ischemic attack (TIA), and cerebral infarction without residual deficits] 03-31-2023 Episodic Other circulatory disease (5 sources) H/O: atrial fibrillation; Translations: [Personal history of other diseases of the circulatory system] 11-24-2023 Episodic Other connective tissue disease (5 sources) Weakness of face muscles; Translations: [Facial weakness] 11-24-2023 Episodic Other connective tissue disease (1 source) Facial weakness; Translations: [Facial weakness] Onset: 5 Episodic Other diseases of kidney and ureters (5 sources) Renal impairment; Translations: [Disorder of kidney and ureter, unspecified] 05-21-2024 Episodic Other gastrointestinal disorders (5 sources) Abdominal bloating; Translations: [Abdominal distension (gaseous)] 01-28-2024 Episodic Other lower respiratory disease (20 sources) Interstitial lung disease; Translations: [Interstitial pulmonary disease, unspecified] Onset: 5 07-09-2024 Chronic Other lower respiratory disease (7 sources) Interstitial pulmonary disease, unspecified; Translations: [Interstitial pulmonary disease, unspecified] Onset: 5 Chronic Other lower respiratory disease (20 sources) Dyspnea on exertion; Translations: [Dyspnea, unspecified] 10-13-2020 Episodic Other lower respiratory disease (20 sources) Other forms of dyspnea; Translations: [Other respiratory abnormalities] Episodic Other lower respiratory disease (20 sources) Dyspnea; Translations: [Shortness of breath] Onset: 3 04-25-2023 Episodic Other lower respiratory disease (5 sources) Hypoxemia; Translations: [Hypoxemia] 04-12-2024 Episodic Other lower respiratory disease (5 sources) Respiratory insufficiency; Translations: [Other abnormalities of breathing] 01-28-2024 Episodic Other lower respiratory disease (5 sources) Hypoxia; Translations: [Hypoxemia] 01-28-2024 Episodic Other lower respiratory disease (2 sources) Shortness of breath; Translations: [Shortness of breath] Onset: 5 Episodic Other nervous system disorders (20 sources) Neuropathy; Translations: [Polyneuropathy, unspecified] Onset: 4 02-04-2023 Chronic Other nervous system disorders (15 sources) Polyneuropathy, unspecified; Translations: [Mononeuritis of unspecified site] Onset: 4 02-04-2023 Chronic Other nervous system disorders (20 sources) Polyneuropathy; Translations: [Polyneuropathy, unspecified] Onset: 4 03-12-2023 Chronic Other nervous system disorders (9 sources) Cranial nerve disorder; Translations: [Cranial nerve disorder, unspecified] 03-31-2023 Episodic Other nutritional; endocrine; and metabolic disorders (19 sources) Morbid obesity; Translations: [Morbid (severe) obesity due to excess calories] Onset: 6 09-20-2015 Chronic Other nutritional; endocrine; and metabolic disorders (20 sources) Obesity; Translations: [Obesity, unspecified] 02-02-2021 Chronic Other nutritional; endocrine; and metabolic disorders (20 sources) Obesity, unspecified; Translations: [Obesity, unspecified] Chronic Other nutritional; endocrine; and metabolic disorders (7 sources) Body mass index 40+ - severely obese; Translations: [Body mass index (BMI) 40.0-44.9, adult] 08-07-2024 Chronic Other nutritional; endocrine; and metabolic disorders (2 sources) Morbid (severe) obesity due to excess calories; Translations: [Morbid (severe) obesity due to excess calories] Onset: 4 Chronic Other nutritional; endocrine; and metabolic disorders (2 sources) Body mass index (BMI) 45.0-49.9, adult; Translations: [Body mass index [BMI] 45.0-49.9, adult] Onset: 4 Chronic Other nutritional; endocrine; and metabolic disorders (2 sources) Body mass index (BMI) 40.0-44.9, adult; Translations: [Body mass index (BMI) 40.0-44.9, adult (Multi)] Onset: 5 Chronic Other nutritional; endocrine; and metabolic disorders (5 sources) H/O: diabetes mellitus; Translations: [Personal history of other endocrine, nutritional and metabolic disease] 11-24-2023 Episodic Other screening for suspected conditions (not mental disorders or infectious disease) (20 sources) Decreased testosterone level ; Translations: [Other specified abnormal findings of blood chemistry] Onset: 3 07-05-2022 Episodic Peripheral and visceral atherosclerosis (5 sources) Arteriosclerotic vascular disease; Translations: [Unspecified atherosclerosis] 11-24-2023 Chronic Pleurisy; pneumothorax; pulmonary collapse (20 sources) Pleural effusion; Translations: [Pleural effusion, not elsewhere classified] Onset: 6 09-23-2015 Episodic Pneumonia (except that caused by tuberculosis or sexually transmitted disease) (7 sources) Pneumonia; Translations: [Pneumonia, unspecified organism] Onset: 4 01-28-2024 Episodic Pulmonary heart disease (8 sources) Pulmonary hypertension; Translations: [Pulmonary hypertension, unspecified] Onset: 5 07-09-2024 Chronic Residual codes; unclassified (20 sources) Obstructive sleep apnea syndrome; Translations: [Obstructive sleep apnea (adult) (pediatric)] Onset: 4 07-13-2021 Chronic Residual codes; unclassified (18 sources) Obstructive sleep apnea (adult) (pediatric); Translations: [Obstructive sleep apnea (adult)(pediatric)] Onset: Chronic Residual codes; unclassified (8 sources) Sleep apnea; Translations: [Sleep apnea, unspecified] 03-23-2024 Chronic Residual codes; unclassified (1 source) Device in situ; Translations: [Mechanical venous thromboembolism (VTE) prophylaxis in place] Onset: 6 09-21-2015 Respiratory failure; insufficiency; arrest (adult) (20 sources) Chronic hypoxemic respiratory failure; Translations: [Chronic respiratory failure with hypoxia] Onset: 4 06-12-2022 Chronic Syncope (20 sources) Near syncope; Translations: [Syncope and collapse] Onset: 4 07-24-2021 Episodic Thyroid disorders (20 sources) Hypothyroidism; Translations: [Hypothyroidism, unspecified] Onset: 6 09-22-2015 Chronic Comment on above: This is a 57-year-ol d male with a history of hypothyroidism who presents for evaluation of bilateral thyroid nodularity. Most recent ultrasound demonstrated indication for FNA biopsy of 1.5 cm TI-RADS 4 nodule in the right. However, patient also has a 2 cm TI-RADS 3 nodule in the left. Given that he already held his anticoagulation in anticipation of this biopsy I offered him biopsy of the left side as well. Mr. Leos requested that we proceed with biopsy of both sides. Thus both patient's right and left-sided thyroid nodules were biopsied in uncomplicated fashion during his initial consultation and resulted in Atypia of undetermined significance for the right side and benign for the left. Today biopsy was repeated for cytopathology and Afirma testing for right nodule after again holding anticoagulation. details given above. Will follow up with patient on results once official Transient cerebral ischemia (20 sources) Transient cerebral ischemia; Translations: [Transient cerebral ischemic attack, unspecified] Onset: 9 04-04-2020 Chronic Unclassified (1 source) DISPOSITION AND FOLLOW-UP Onset: 6 09-23-2015 Past or Other Problems Problem Classification Problem Date Documented Da te Episodic/Chronic Abdominal pain (19 sources) Left flank pain; Translations: [Unspecified abdominal pain] Onset: 07-04-2015 07-04-2015 Episodic Calculus of urinary tract (19 sources) Kidney stone; Translations: [Calculus of kidney] Onset: 09-09-2006 09-09-2006 Episodic Conditions associated with dizziness or vertigo (20 sources) Dizziness; Translations: [Dizziness and giddiness] Onset: 10-08-2022 02-16-2021 Episodic Deficiency and other anemia (2 sources) Anemia, unspecified; Translations: [Anemia, unspecified] Onset: 04-21-2024 Episodic Immunizations and screening for infectious disease (17 sources) Rheumatoid factor positive; Translations: [Other specified abnormal immunological findings in serum] Onset: 03-23-2024 05-01-2024 Episodic Nonmalignant breast conditions (19 sources) Breast lump; Translations: [Unspecified lump in unspecified breast] Onset: 05-30-2007 05-30-2007 Episodic Other aftercare (1 source) nursing home (current) use of anticoagulants; Translations: [long term care pharmacist (current) use of anticoagulants] Onset: 05-05-2024 Episodic Other circulatory disease (7 sources) Personal history of transient ischemic attack (TIA), and cerebral infarction without residual deficits; Translations: [Personal history of transient ischemic attack (TIA), and cerebral infarction without residual deficits] Onset: 10-21-2023 03-12-2023 Episodic Other gastrointestinal disorders (1 source) Abdominal distension (gaseous); Translations: [Abdominal distension (gaseous)] Onset: 02-18-2024 Episodic Other lower respiratory disease (1 source) Disorder of lung; Translations: [Other diseases of lung, not elsewhere classified] Onset: 02-26-2007 02-26-2007 Episodic Other lower respiratory disease (13 sources) Dyspnea, unspecified; Translations: [Other respiratory abnormalities] Onset: 06-18-2024 Episodic Other lower respiratory disease (1 source) Hypoxemia; Translations: [Hypoxemia] Onset: 03-26-2024 Episodic Other lower respiratory disease (1 source) Other abnormalities of breathing; Translations: [Other abnormalities of breathing] Onset: 01-22-2024 Episodic Other nervous system disorders (19 sources) Acute postoperative pain; Translations: [Other acute postprocedural pain] Onset: 09-20-2015 09-23-2015 Episodic Respiratory failure; insufficiency; arrest (adult) (20 sources) Acute respiratory failure; Translations: [Acute respiratory failure with hypoxia] Onset: 01-02-2024 Episodic Spondylosis; intervertebral disc disorders; other back problems (2 sources) Intervertebral disc disorders with radiculopathy, lumbosacral region; Translations: [Cervicalgia] Onset: 09-27-2023 Episodic Unclassified (7 sources) Onset: 08-07-2024 08-07-2024 Results Test Name Value Interpretation Reference Range Facility ASPERGILLUS GALACTOMANNAN EI A (NON-BLOOD SPECIMEN)on 09-24-2024 Galactomannan Ag IA Qn 0.027 Normal <0.500 [facility] [place] Comment on above: Result Comment: Inte rpretation: Patients with an index value of greater than or equal to 0.5 are considered to be positive for galactomannan antigen. The Platelia(TM) Aspergillus EIA package insert also recommends a new sample be collected from the patient for follow-up testing. Patients with an index value of less than 0.5 are considered to be negative for galactomannan antigen. A negative result may indicate that the patient's result is below the detectable level of the assay. Negative results do not rule out the diagnosis of Invasive Aspergillosis. Pursuant to the package insert, repeat testing is recommended if the result is negative, but the disease is suspected. Due to the potential for environmental contamination when transferred to pour-off tubes, which can lead to false positive results, interpret positive results from samples provided in pour-off tubes with caution. Results should be used in conjunction with clinical findings, and should not form the sole basis for a diagnosis or treatment decision. The Platelia Aspergillus Galactomannan EIA is a product of [employer] and is FDA approved for in vitro diagnostic use. Testing Performed at: [facility] [address] [place] [address], [facility] [address] [place] [address] Stretcher And Drier: José Harris, PhD BHAVNA (MELY) CLIA # [id number] FLAG Interpretation: A = Abnormal, H = High, L = Low Performed By: #### A SPQN ####[facility] ([id number] [place] [address] BASIC METABOLIC PANEL WITH A NIGEOVANNI GAPon 09-24-2024 Calcium [Mass/Vol] 8.7 mg/dL Normal 8.6-10.3 [facility] Comment on above: Order Comment: FASTI NG:YES FASTING: YES Performed By: #### 9 582, 1759 #### [facility] [address], [address] [place] [address] Estimator And Drafter: Octavio Segovia MD Chloride [Moles/Vol] 102 mmol/L Normal 98-110 [facility] Comment on above: Order Comment: FASTI NG:YES FASTING: YES Performed By: #### 9 501, 1759 #### [facility] [place] [address] Estimator And Drafter: Octavio Segovia MD CO2 [Moles/Vol] 20 mmol/L Normal 20-32 [facility] Comment on above: Order Comment: FASTI NG:YES FASTING: YES Performed By: #### 9 059, 1759 #### [facility] [address], [address] [place] [address] Estimator And Drafter: Octavio Segovia MD Creatinine [Mass/Vol] 1.49 mg/dL High 0.70-1.35 [facility] Comment on above: Order Comment: FASTI NG:YES FASTING: YES Performed By: #### 9 058, 175 #### [facility] [place] [address] Estimator And Drafter: Octavio Segovia MD ELECTROLYTE BALANCE 14 mmol/L (calc) Normal 7-17 [facility] Comment on above: Order Comment: FASTI NG:YES FASTING: YES Performed By: #### 9 476, 1759 #### [facility] [place] [address] Estimator And Drafter: Octavio Segovia MD GFR/1.73 sq M.predicted among non-blacks MDRD (S/P/Bld) [Vol rate/Area] 53 mL/min/{1.73_m2} Low > OR = 60 [facility] Comment on above: Order Comment: FASTI NG:YES FASTING: YES Performed By: #### 9 2497, 1759 #### [facility] [address], [address] [place] [address] Estimator And Drafter: Octavio Segovia MD Glucose [Mass/Vol] 304 mg/dL High 65-99 [facility] Comment on above: Order Comment: FASTI NG:YES FASTING: YES Result Comment: Fasting reference interval For someone without known diabetes, a glucose value >125 mg/dL indicates that they may have diabetes and this should be confirmed with a follow-up test. Performed By: #### 9 2497, 1759 #### [facility] [address], [address] [place] [address] Estimator And Drafter: Octavio Segovia MD Potassium [Moles/Vol] 4.8 mmol/L Normal 3.5-5.3 [facility] Comment on above: Order Comment: FASTI NG:YES FASTING: YES Performed By: #### 9 2497, 175 #### [facility] [address], [address] [place] [address] Estimator And Drafter: Octavio Segovia MD Sodium [Moles/Vol] 136 mmol/L Normal 135-146 [facility] Comment on above: Order Comment: FASTI NG:YES FASTING: YES Performed By: #### 9 2497, 175 #### [facility] [address], [address] [place] [address] Estimator And Drafter: Octavio Segovia MD Urea nitrogen [Mass/Vol] 36 mg/dL High 7-25 [facility] Comment on above: Order Comment: FASTI NG:YES FASTING: YES Performed By: #### 9 2497, 175 #### [facility] [address], [address] [place] [address] Estimator And Drafter: Octavio Segovia MD Urea nitrogen/Creatinine [Mass ratio] 24 mg/mg High 6-22 [facility] Comment on above: Order Comment: FASTI NG:YES FASTING: YES Performed By: #### 9 2497, 175 #### [facility] [address], [address] [place] [address] Estimator And Drafter: Octavio Segovia MD BRONCHOSCOPYon 09-24-2024 BRONCHOSCOPY Table formatting fro m the original result was not included. Images from the original result were not included. Bronchoscopy Operative Report [facility] Date of procedure: 09/24/24 Patient: Krunal Leos Date of : 1965 Gender: male Referring provider/physician: Rosalino Padron MD PRE-PROCEDURE DIAGNOSIS: lnterstitial Lung Disease J84.9 PRE-PROCEDURE EVALUATION: A history and physical has been performed, and patient medication allergies have been reviewed. The patient's tolerance of previous anesthesia has been reviewed. The risks and benefits of the procedure and the sedation options and risks were discussed with the patient or their designee. All questions were answered and informed consent obtained. INDICATION: Obtain diagnosis BRONCHOSCOPIST: Dick Nguyen MD Supervisor Pairing And Inspecting: Maeve Pringle MD PROCEDURES PERFORMED: Flexible Bronchoscopy Cryo Transbronchial Biopsy using 1.7 cryoprobe 7 Fijian Osmani renuka placement in RLL and RML BAL RML Events Procedure Events Event Event Time ENDO SCOPE IN TIME 09/24/2024 8:05 AM ENDO SCOPE OUT TIME 09/24/2024 8:40 AM POST-PROCEDURE DIAGNOSIS: Interstitial Lung Disease ANESTHESIA: GETA. See separate anesthesia provider documentation. This procedure was performed using standard monitoring procedures in [facility]'s [facility] Endoscopy Suite. Medications See Anesthesia Record. Details of the Procedure The patient underwent general anesthesia, which was administered by an anesthesia professional. The patient's blood pressure, heart rate, level of consciousness, oxygen saturation, respirations, ECG and ETCO2 were monitored throughout the procedure. The patient's estimated blood loss was minimal. The scope was introduced through the endotracheal tube. The procedure was not difficult. The patient tolerated the procedure well. There were no apparent adverse events. After adequate local and intravenous anesthesia, bronchoscopy was performed via ETT. A 7 cameroonian renuka was placed outside of the ETT into the trachea with placement into the right lower lobe The subglottic space and trachea appeared normal. Inspection of RIGHT bronchial tree to the segmental level appeared normal. Inspection of LEFT bronchial tree to the segmental level appeared normal. BAL - The bronchoscope was advanced until wedged at the desired location for bronchoalveolar lavage. BAL was performed in the RML and sent for cell count and differential, bacterial gram stain and culture, fungal smear and culture, AFB smear and culture, respiratory viral panel, Fungitell beta-D glucan, CD4/CD8 ratio, and routine cytology. 120 mL of fluid were instilled. 43 mL of fluid was returned. The BAL fluid return was clear. The renuka was advanced to the RLL and the ETT was advanced to the distal trachea. Fluoroscopically guided transbronchial biopsies were performed in the RLL. In prepararation for cryobiopsies, we advanced the renuka to the segment to be biopsied and confirmed that inflating the balloon would occlude the segmental airway to be sampled. We then advanced a 1.7 mm cryoprobe into the peripheral lung under fluoroscopic guidance, activated the probe and removed the sample en bloc while inflating the balloon. The freeze duration was 3 seconds. The balloon was inflated with 6 mL of air and effectively occluded the airway. The scope was then readvanced and secretions were aspirated while the balloon was deflated. No significant bleeding was seen. Fluoroscopy after biopsies did not show a pneumothorax. One cryobiopsy was taken in the RLL. The renuka was then advanced to the RML. Fluoroscopically guided transbronchial biopsies were performed in the RML. In prepararation for cryobiopsies, we advanced the renuka to the segment to be biopsied and confirmed that inflating the balloon would occlude the segmental airway to be sampled. We then advanced a 1.7 mm cryoprobe into the peripheral lung under fluoroscopic guidance, activated the probe and removed the sample en bloc while inflating the balloon. The freeze duration was 3 seconds. The balloon was inflated with 6 mL of air and effectively occluded the airway. The scope was then readvanced and secretions were aspirated while the balloon was deflated. No significant bleeding was seen. Fluoroscopy after biopsies did not show a pneumothorax. Two cryo biopsies were taken in the RML. Total number of cryo biopsies using the 1.7 mm cryoprobe was three. There were no active bleeding. Modifier 22 - This case was considered complicated due to cryo transbronchial biopies and placement of 7 cameroonian renuka. The procedure required more time than usual to perform. After diagnostic/therapeutic maneuvers, the airway was examined for evidence of bleeding. None was noted. The bronchoscope was removed from the patient's airway and the airway was handed back over to my colleagues from anesthesiology. SPECIMENS: ID Type Source Karly (more content not included)... Normal [facility] Comment on above: Order Comment: [facility] hoscop Scheduling Request Pre-bronchoscopy visit: Not needed with Dr Padron Please schedule procedure: After September 11, 2024 Cytology on-site: No Location: [facility] [facility] Performing physician: Dick Nguyen MD or interventional pulm (cryo ILD biopsies) Referring physician: Rosalino Padron MD, Radha Khan MD Indication: undifferentiated ILD Sedation / Anesthesia: GA Procedure: Airway exam, BAL, TBBx, Rigid, 7 cameroonian renuka with rigid, if too hypoxic then 8.5/9 ETT with 5 cameroonian renuka Time: Tier 2 Fluorscopy: Yes Imaging needed: None Labs: CBC, BMP Meds: Brilinta, Eliquis, ASA 325. (Need neurology clearance) okay for asa 81 but not 325 prior to cryo bronch Special Considerations: baseline 4L with exertion is 6L NC. Reviewed by: Dick Nguyen MD on 08/09/24 Bacteria identifiedon 2024 Bacteria identified Respiratory culture Nom (Unsp spec) Test: Respiratory Culture/Smear Specimen Source: BRONCHO-ALVEOLAR LAVAGE OF RIGHT MIDDLE LOBE Specimen Type: Fluid Specimen Date: 09/24/2024838 Result Date: 09/26/2024840 Result Status: Final result Resulting Lab: [facility] [address] [place] [address] CULTURE No growth aerobically and anaerobically STAIN (2+) Few Polymorphonuclear leukocytes No organisms seen Normal [facility] Comment on above: Performed By: #### 3 2355-0 #### MICHAEL Ho ([id number]) [facility] ([facility]) [id number] [place] [address] Bronchoscopy studyon 025 Addendum by Dick Davis am, MD on 09/24/2024 9:35 AM EDT Table formatting from the original result was not included. Images from the original result were not included. Bronchoscopy Operative Report [facility] Date of procedure: 09/24/24 Patient: Krunal Leos Date of : 1965 Gender: male Referring provider/physician: Rosalino Padron MD PRE-PROCEDURE DIAGNOSIS: lnterstitial Lung Disease J84.9 PRE-PROCEDURE EVALUATION: A history and physical has been performed, and patient medication allergies have been reviewed. The patient's tolerance of previous anesthesia has been reviewed. The risks and benefits of the procedure and the sedation options and risks were discussed with the patient or their designee. All questions were answered and informed consent obtained. INDICATION: Obtain diagnosis BRONCHOSCOPIST: Dick Nguyen MD Supervisor Pairing And Inspecting: Maeve Pringle MD PROCEDURES PERFORMED: Flexible Bronchoscopy Cryo Transbronchial Biopsy using 1.7 cryoprobe 7 Fijian Osmani renuka placement in RLL and RML BAL RML Events Procedure Events Event Event Time ENDO SCOPE IN TIME 09/24/2024 8:05 AM ENDO SCOPE OUT TIME 09/24/2024 8:40 AM POST-PROCEDURE DIAGNOSIS: Interstitial Lung Disease ANESTHESIA: GETA. See separate anesthesia provider documentation. This procedure was performed using standard monitoring procedures in [facility] Endoscopy Suite. Medications See Anesthesia Record. Details of the Procedure The patient underwent general anesthesia, which was administered by an anesthesia professional. The patient's blood pressure, heart rate, level of consciousness, oxygen saturation, respirations, ECG and ETCO2 were monitored throughout the procedure. The patient's estimated blood loss was minimal. The scope was introduced through the endotracheal tube. The procedure was not difficult. The patient tolerated the procedure well. There were no apparent adverse events. After adequate local and intravenous anesthesia, bronchoscopy was performed via ETT. A 7 cameroonian renuka was placed outside of the ETT into the trachea with placement into the right lower lobe The subglottic space and trachea appeared normal. Inspection of RIGHT bronchial tree to the segmental level appeared normal. Inspection of LEFT bronchial tree to the segmental level appeared normal. BAL - The bronchoscope was advanced until wedged at the desired location for bronchoalveolar lavage. BAL was performed in the RML and sent for cell count and differential, bacterial gram stain and culture, fungal smear and culture, AFB smear and culture, respiratory viral panel, Fungitell beta-D glucan, CD4/CD8 ratio, and routine cytology. 120 mL of fluid were instilled. 43 mL of fluid was returned. The BAL fluid return was clear. The renuka was advanced to the RLL and the ETT was advanced to the distal trachea. Fluoroscopically guided transbronchial biopsies were performed in the RLL. In prepararation for cryobiopsies, we advanced the renuka to the segment to be biopsied and confirmed that inflating the balloon would occlude the segmental airway to be sampled. We then advanced a 1.7 mm cryoprobe into the peripheral lung under fluoroscopic guidance, activated the probe and removed the sample en bloc while inflating the balloon. The freeze duration was 3 seconds. The balloon was inflated with 6 mL of air and effectively occluded the airway. The scope was then readvanced and secretions were aspirated while the balloon was deflated. No significant bleeding was seen. Fluoroscopy after biopsies did not show a pneumothorax. One cryobiopsy was taken in the RLL. The renuka was then advanced to the RML. Fluoroscopically guided transbronchial biopsies were performed in the RML. In prepararation for cryobiopsies, we advanced the renuka to the segment to be biopsied and confirmed that inflating the balloon would occlude the segmental airway to be sampled. We then advanced a 1.7 mm cryoprobe into the peripheral lung under fluoroscopic guidance, activated the probe and removed the sample en bloc while inflating the balloon. The freeze duration was 3 seconds. The balloon was inflated with 6 mL of air and effectively occluded the airway. The scope was then readvanced and secretions were aspirated while the balloon was deflated. No significant bleeding was seen. Fluoroscopy after biopsies did not show a pneumothorax. Two cryo biopsies were taken in the RML. Total number of cryo biopsies using the 1.7 mm cryoprobe was three. There were no active bleeding. Modifier 22 - This case was considered complicated due to cryo transbronchial biopies and placement of 7 cameroonian renuka. The procedure required more time than usual to perform. After diagnostic/therapeutic maneuvers, the airway (more content not included)... [facility] Work Phone: [facility] Work Phone: Radiology Study observation (narrative) [facility] Work Phone: CBC (H/H, RBC, INDICES, WBC, PLT)on 09-24-2024 Erythrocyte distribution width (RBC) [Ratio] 16.0 % High 11.0-15.0 [facility] Comment on above: Performed By: #### 9 2497, 1759 #### [facility] [place] [address] Estimator And Drafter: Octavio Segovia MD Hematocrit (Bld) [Volume fraction] 33.0 % Low 38.5-50.0 [facility] Comment on above: Performed By: #### 9 2497, 1759 #### [facility] [place] [address] Estimator And Drafter: Octavio Segovia MD Hemoglobin (Bld) [Mass/Vol] 9.4 g/dL Low 13.2-17.1 [facility] Comment on above: Performed By: #### 9 2497, 1759 #### [facility] [place] [address] Estimator And Drafter: Octavio Segovia MD MCH (RBC) [Entitic mass] 23.4 pg Low 27.0-33.0 [facility] Comment on above: Performed By: #### 9 2497, 1759 #### [facility] [place] [address] Estimator And Drafter: Octavio Segovia MD MCHC (RBC) [Mass/Vol] 28.5 g/dL Low 32.0-36.[address] [facility] Comment on above: Result Comment: For adults, a slight decrease in the calculated MCHC value (in the range of 30 to 32 g/dL) is most likely not clinically significant; however, it should be interpreted with caution in correlation with other red cell parameters and the patient's clinical condition. Performed By: #### 9 2497, 1759 #### [facility] [place] [address] Estimator And Drafter: Octavio Segovia MD MCV (RBC) [Entitic vol] 82.1 fL Normal 80.0-100.0 [facility] Comment on above: Performed By: #### 9 2497, 1759 #### [facility] [place] [address] Estimator And Drafter: Octavio Segovia MD Platelet mean volume (Bld) [Entitic vol] 10.4 fL Normal 7.5-12.5 [facility] Comment on above: Performed By: #### 9 8, 1759 #### [facility] [place] [address] Estimator And Drafter: Octavio Segovia MD Platelets (Bld) [#/Vol] 259 10*3/uL Normal 140-400 [facility] Comment on above: Performed By: #### 9 2497, 1759 #### [facility] [place] [address] Estimator And Drafter: Octavio Segovia MD RBC (Bld) [#/Vol] 4.02 10*6/uL Low 4.20-5.80 [facility] Comment on above: Performed By: #### 9 2497, 1759 #### [facility] [place] [address] Estimator And Drafter: Octavio Segovia MD WBC (Bld) [#/Vol] 12.8 10*3/uL High 3.8-10.8 [facility] Comment on above: Performed By: #### 9 2497, 1759 #### [facility] [place] [address] Estimator And Drafter: Octavio Segovia MD Cell count panel (Body fld)O rdered By: Johanna Prieto on 09-24-2024 Clarity (Body fld) Clear Clear [facility] Color (Body fld) Colorless Colorless, Straw, Yellow [facility] RBC Auto (Body fld) [#/Vol] /uL see comment /uL [facility] WBC (Body fld) [#/Vol] 0.022 10*3/uL See Comment [facility] Body Fluid cell coun t reference ranges have not been established by [facility]. Reference ranges provided are based on published references. This test was developed and its performance characteristics determined by [facility]. It has not been cleared or approved by the [place] Food and Drug Administration. [facility] Cell count panel (Body fld)o n 09-24-2024 Clarity (Body fld) Clear Normal Clear [facility] Comment on above: Order Comment: Body Fluid cell count reference ranges have not been established by [facility]. Reference ranges provided are based on published references. This test was developed and its performance characteristics determined by [facility]. It has not been cleared or approved by the [place] Food and Drug Administration. Performed By: #### 3 4556-1 #### MICHAEL Ho ([id number]) [facility] ([facility]) [address] [place] [address] Color (Body fld) Colorless Normal Colorless, Straw, Yellow [facility] Comment on above: Order Comment: Body Fluid cell count reference ranges have not been established by [facility]. Reference ranges provided are based on published references. This test was developed and its performance characteristics determined by [facility]. It has not been cleared or approved by the [place] Food and Drug Administration. Performed By: #### 3 4556-1 #### MICHAEL Ho ([id number]) [facility] ([facility]) [id number] [place] [address] RBC Auto (Body fld) [#/Vol] <2000 Normal see comment [facility] Comment on above: Order Comment: Body Fluid cell count reference ranges have not been established by [facility]. Reference ranges provided are based on published references. This test was developed and its performance characteristics determined by [facility]. It has not been cleared or approved by the [place] Food and Drug Administration. Performed By: #### 3 4556-1 #### MICHAEL Ho ([id number]) [facility] ([facility]) [address] [place] [address] WBC (Body fld) [#/Vol] 0.022 10*3/uL Normal See Comment [facility] Comment on above: Order Comment: Body Fluid cell count reference ranges have not been established by [facility]. Reference ranges provided are based on published references. This test was developed and its performance characteristics determined by [facility]. It has not been cleared or approved by the [place] Food and Drug Administration. Performed By: #### 3 4556-1 #### MICHAEL Ho ([id number]) [facility] ([facility]) [id number] [place] [address] Differential panel (Body fld )on 09-24-2024 Cells Counted Total (Body fld) [#] 100 [facility] Eosinophils/100 WBC Manual cnt (Body fld) 1 % see comment [facility] Comment on above: BAL Reference Range: <1% Lymphocytes/100 WBC Manual cnt (Body fld) 21 % see comment [facility] Comment on above: Synovial/Peritoneal/ Pericardial/Pleural Fluid Reference Range: <75% BAL Reference Range: <10% Monocytes+Macrophages/1 00 WBC Manual cnt (Body fld) 53 % see comment [facility] Comment on above: Synovial/Peritoneal/ Pericardial/Pleural Fluid Reference Range: <70% BAL Reference Range: 87-100% Neutrophils/100 WBC (Body fld) 25 % see comment [facility] Comment on above: Synovial/Peritoneal/ Pericardial/Pleural Fluid Reference Range: <25% BAL Reference Range: <2% Body Fluid cell differential reference ranges have not been established by [facility]. Reference ranges provided are based on published references. This test was developed and its performance characteristics determined by [facility]. It has not been cleared or approved by the [place] Food and Drug Administration. [facility] Cells Counted Total (Body fld) [#] 100 Normal [facility] Comment on above: Order Comment: Body Fluid cell differential reference ranges have not been established by [facility]. Reference ranges provided are based on published references. This test was developed and its performance characteristics determined by [facility]. It has not been cleared or approved by the [place] Food and Drug Administration. Performed By: #### 2 9580-8 #### MICHAEL Ho ([id number]) [facility] ([facility]) [address] [place] [address] Eosinophils/100 WBC Manual cnt (Body fld) 1 % Normal see comment [facility] Comment on above: Order Comment: Body Fluid cell differential reference ranges have not been established by [facility]. Reference ranges provided are based on published references. This test was developed and its performance characteristics determined by [facility]. It has not been cleared or approved by the [place] Food and Drug Administration. Result Comment: BAL Reference Range: <1% Performed By: #### 2 9580-8 #### MICHAEL BERNALTZER L ([id number]) [facility] ([facility]) [id number] [place] [address] Lymphocytes/100 WBC Manual cnt (Body fld) 21 % Normal see comment [facility] Comment on above: Order Comment: Body Fluid cell differential reference ranges have not been established by [facility]. Reference ranges provided are based on published references. This test was developed and its performance characteristics determined by [facility]. It has not been cleared or approved by the [place] Food and Drug Administration. Result Comment: Syno vial/Peritoneal/Pericardial/Pleural Fluid Reference Range: <75% BAL Reference Range: <10% Performed By: #### 2 9580-8 #### MICHAEL HOLMMOTZER L ([id number]) [facility] ([facility]) [address] [place] [address] Monocytes+Macrophages/1 00 WBC Manual cnt (Body fld) 53 % Normal see comment [facility] Comment on above: Order Comment: Body Fluid cell differential reference ranges have not been established by [facility]. Reference ranges provided are based on published references. This test was developed and its performance characteristics determined by [facility]. It has not been cleared or approved by the [place] Food and Drug Administration. Result Comment: Syno vial/Peritoneal/Pericardial/Pleural Fluid Reference Range: <70% BAL Reference Range: 87-100% Performed By: #### 2 9580-8 #### MICHAEL HOLMMOTZER L ([id number]) [facility] ([facility]) [id number] [place] [address] Neutrophils/100 WBC (Body fld) 25 % Normal see comment [facility] Comment on above: Order Comment: Body Fluid cell differential reference ranges have not been established by [facility]. Reference ranges provided are based on published references. This test was developed and its performance characteristics determined by [facility]. It has not been cleared or approved by the US Food and Drug Administration. Result Comment: Syno vial/Peritoneal/Pericardial/Pleural Fluid Reference Range: <25% BAL Reference Range: <2% Performed By: #### 2 9580-8 #### MICHAEL Ho ([id number]) [facility] ([facility]) [address] [place] [address] Fungus identifiedon 09-25-19 Fungus identified Cx Nom (Unsp spec) Test: Fungal Culture/Smear Specimen Source: BRONCHO-ALVEOLAR LAVAGE OF RIGHT MIDDLE LOBE Specimen Type: Fluid Specimen Date: 09/24/2024838 Result Date: 09/25/20241114 Result Status: Preliminary result Resulting Lab: [facility] [address] [place] [address] CULTURE Culture in progress, a report will be issued when positive or after 2 weeks of incubation. STAIN No fungal elements seen Normal [facility] Comment on above: Performed By: #### 5 80-1 #### MICHAEL Ho ([id number]) [facility] ([facility]) [address] [place] [address] LEGIONELLA PCR PANELon 09-24 LEGIONELLA PNEUMO PCR, VIRC Not detected Normal Not Detected [facility] Comment on above: Result Comment: This test was developed and its performance characteristics determined by [facility]. It has not been cleared or approved by the [place].S. Food and Drug Administration. Results should be used in conjunction with clinical findings, and should not form the sole basis for a diagnosis or treatment decision. Testing Performed at: [facility] [address] [place] [address], [address] [place] [address] Stretcher And Drier: José Harris, PhD BCLD (ABB) CLIA # [id number] FLAG Interpretation: A = Abnormal, H = High, L = Low Performed By: #### L [facility] ####[facility] ([id number])[address] [place] [address] NAVAS.LEGIONELLA PCR, VIRC Not detected Normal Not Detected [facility] Comment on above: Performed By: #### L EGPC ####[facility] ([id number])[address] [place] [address] Mycobacterium sp identifiedo n 09-24-2024 Mycobacterium sp identified Org specific cx Nom (Unsp spec) Test: AFB Culture/Smear Specimen Source: BRONCHO-ALVEOLAR LAVAGE OF RIGHT MIDDLE LOBE Specimen Type: Fluid Specimen Date: 09/24/2024838 Result Date: 09/25/2024858 Result Status: Preliminary result Resulting Lab: [facility] [id number] [place] [address] CULTURE Culture in progress and will be examined weekly. A result will be issued either when positive or after 8 weeks incubation. STAIN No acid fast bacilli seen Normal [facility] Comment on above: Performed By: #### 5 43-9 #### MICHAEL Ho ([id number]) [facility] ([facility]) [address] [place] [address] Non-wire stripper cytology studyon Non-gynecological cytology method study Pathology report.total SEE COMMENT Non-gynecologic Cytology Case: [id number] Authorizing Provider: Dick Nguyen MD Collected: 09/24/2024 0837 Ordering Location: [facility] Received: 09/24/2024 1637 Center Pathologist: Lyudmila Valentin MD Specimen: BRONCHO-ALVEOLAR LAVAGE OF RIGHT MIDDLE LOBE, BAL RML Path report.final diagnosis SEE COMMENT A. BRONCHO-ALVEOLAR LAVAGE OF RIGHT MIDDLE LOBE- BAL RML No malignant cells or viral inclusions are identified Numerous macrophages present GMS stain is negative for organisms: fungal and pneumocystis organisms. at 1551 EDT Laboratory comment SEE COMMENT Slide(s) initially screened by Denisa Holliday CT at [facility] [id number] [place] [phone] By the signature on this report, the individual or group listed as making the Final Interpretation/Diagnosis certifies that they have reviewed this case. RESIDENT REVIEW The gross and/or microscopic findings were reviewed in conjunction with pathology resident, Salome Marcano MD. Path report.gross observation SEE COMMENT A. BRONCHO-ALVEOLAR LAVAGE OF RIGHT MIDDLE LOBE. Received 10 ml colorless cloudy fluid with particles in sterile cup . Laboratory comment SEE COMMENT A1 Slides Only (No Block) A1-1 Pap Stain NGYN ThinPrep A1-2 GMS PCP A1-3 LOG SPECIAL STAIN [facility] Pathologist review Cedrick (Unsp spec) [Interp]on 09-24-2024 PATH REVIEW-CELL CT,FLUID Predominantly macrophages with some foamy and hemosiderin-laden forms. [facility] Comment on above: Result Comment: Elec tronically signed out by Cat Gunter MD on 09/25/24 at 10:24 AM. By the signature on this report, the individual or group listed as making the Final Interpretation/Diagnosis certifies that they have reviewed this case. Performed By: #### 5 9465-5 #### MICHAEL Ho ([id number]) [facility] ([facility]) [address] [place] [address] Surgical pathology studyon 0 09-24-2024 Surgical pathology study Pathology report.total SEE COMMENT Surgical Pathology Case: [id number] Authorizing Provider: Dick Nguyen MD Collected: 09/24/2024 0817 Ordering Location: [facility] Received: 09/24/2024 1142 Center Pathologist: Sanchez Hernandez MD Specimen: TRANSBRONCHIAL BIOPSY, Right Lung Cryo TBBX Path report.final diagnosis SEE COMMENT A. LUNG, RIGHT; BIOPSY: -- Lung parenchyma with focal interstitial fibrosis and cystic remodeling. See comment at 1633 EDT Laboratory comment By the signature on this report, the individual or group listed as making the Final Interpretation/Diagnosis certifies that they have reviewed this case. Path report.comments The biopsy consists of three fragments of alveolated lung parenchyma showing temporally heterogeneous interstitial changes. Two fragments display relatively preserved architecture, while one fragment exhibits interstitial fibrosis with cystic remodeling of the lung parenchyma. Rare areas concerning for fibroblastic foci are identified, and the pneumocytes demonstrate reactive changes. These findings raise concern for a chronic fibrosing interstitial pneumonia with features suggestive of usual interstitial pneumonia (UIP). Radiologic correlation is recommended to assess the extent and distribution of these changes for further characterization. Path report.gross observation SEE COMMENT A: Received in formalin, labeled with the patient???s name and hospital number and right lung cryo TBBX, are multiple pink-white, soft tissue fragments aggregating to 0.8 x 0.4 x 0.3 cm. The specimen is submitted in toto in one cassette. B [facility] XR CHEST 1 VIEWon 09-24-2024 XR CHEST 1 VIEW Interpreted By: Matthias Bunch and Mercado Amiel STUDY: XR CHEST 1 VIEW; 09/24/2024 9:32 am INDICATION: Signs/Symptoms:after bronchoscopy. COMPARISON: CT CHEST HIGH RESOLUTION 07/20/2024 ACCESSION NUMBER(S): [id number] ORDERING CLINICIAN: DICK NGUYEN FINDINGS: AP radiograph of the chest. CARDIOMEDIASTINAL SILHOUETTE: The cardiomediastinal silhouette is stable in size and configuration,persistentl y enlarged. LUNGS: Diffuse bilateral hazy reticulonodular opacities with relatively increased size of right lateral lower lung field. ABDOMEN: No remarkable upper abdominal findings. BONES: No acute osseous abnormality. IMPRESSION: 1. Diffuse bilateral hazy reticulonodular opacities with relatively increased size of right lateral lower lung field, which likely represents infiltrate/consolidation with superimposed interstitial lung findings previously described on CT. I have reviewed the images/study and I agree with the findings as stated by Dr. Aguila Gonzales. Signed by: Matthias Bunch 09/24/2024 10:10 AM Dictation workstation: [id number] [facility] XR Chest Single viewon 09-24 1. Diffuse bilateral hazy reticulonodular opacities with relatively increased size of right lateral lower lung field, which likely represents infiltrate/consolidation with superimposed interstitial lung findings previously described on CT. I have reviewed the images/study and I agree with the findings as stated by Dr. Aguila Gonzales. Signed by: Matthias Bunch 09/24/2024 10:10 AM Dictation workstation: [id number] MMODAL Interpreted By: Matthias Bunch and Mercado Amiel STUDY: XR CHEST 1 VIEW; 09/24/2024 9:32 am INDICATION: Signs/Symptoms:after bronchoscopy. COMPARISON: CT CHEST HIGH RESOLUTION 07/20/2024 ACCESSION NUMBER(S): [id number] ORDERING CLINICIAN: DICK NGUYEN FINDINGS: AP radiograph of the chest. CARDIOMEDIASTINAL SILHOUETTE: The cardiomediastinal silhouette is stable in size and configuration,persistentl y enlarged. LUNGS: Diffuse bilateral hazy reticulonodular opacities with relatively increased size of right lateral lower lung field. ABDOMEN: No remarkable upper abdominal findings. BONES: No acute osseous abnormality. MMODAL Matthias Bunch MD PhD - 09/24/2024 Interpreted By: Matthias Bunch and Mercado Amiel STUDY: XR CHEST 1 VIEW; 09/24/2024 9:32 am INDICATION: Signs/Symptoms:after bronchoscopy. COMPARISON: CT CHEST HIGH RESOLUTION 07/20/2024 ACCESSION NUMBER(S): [id number] ORDERING CLINICIAN: DICK NGUYEN FINDINGS: AP radiograph of the chest. CARDIOMEDIASTINAL SILHOUETTE: The cardiomediastinal silhouette is stable in size and configuration,persistentl y enlarged. LUNGS: Diffuse bilateral hazy reticulonodular opacities with relatively increased size of right lateral lower lung field. ABDOMEN: No remarkable upper abdominal findings. BONES: No acute osseous abnormality. IMPRESSION: 1. Diffuse bilateral hazy reticulonodular opacities with relatively increased size of right lateral lower lung field, which likely represents infiltrate/consolidation with superimposed interstitial lung findings previously described on CT. I have reviewed the images/study and I agree with the findings as stated by Dr. Aguila Gonzales. Signed by: Matthias Bunch 09/24/2024 10:10 AM Dictation workstation: [id number] [facility] Work Phone: Radiology Study observation (narrative) [facility] Work Phone: XR Chest Single viewOrdered By: Matthias Bunch on 09-24-2024 [facility] Work Phone: Endocrinology Visit Reporton 09-16-2024 Endocrinology Visit Report Normal [facility] Office Visit Reporton 2024 Office Visit Report Normal [facility] Neurology Visit Reporton Neurology Visit Report Normal [facility] Anion gap in Serum or Plasma Ordered By: Khadar Valencia on 08-12-2024 Anion gap [Moles/Vol] 14 mmol/L - [facility] BUN/creatinine ratioOrdered By: Khadar Valencia on 08-12-2024 Urea nitrogen/Creatinine [Mass ratio] 30.2 mg/mg High 01-18 [facility] Basic Metabolic Profile (BMP )on 08-12-2024 BUN/CRE 30.2 RATIO High 01-18 [facility] Comment on above: Performed By: #### L 503.7505, L500.2500 ####[facility] [address] [place], [address] Calcium [Mass/Vol] 9.6 mg/dL Normal 7.6-11.0 [facility] Comment on above: Performed By: #### L 503.7505, L500.2500 ####[facility] [address] [place], [address] Chloride [Moles/Vol] 98 mmol/L Normal 98-108 [facility] Comment on above: Performed By: #### L 503.7505, L500.2500 ####[facility] [address] [place], [address] CO2 [Moles/Vol] 25.1 mmol/L Normal 21.0-32.0 [facility] Comment on above: Performed By: #### L 503.7505, L500.2500 ####[facility] [address] [place], [address] Creatinine [Mass/Vol] 1.31 mg/dL High 0.70-1.20 [facility] Comment on above: Performed By: #### L 503.7505, L500.2500 ####[facility] [address] [place], [address] GAP 14 Normal 5-15 [facility] Comment on above: Performed By: #### L 503.7505, L500.2500 ####[facility] [address] [place], [address] GFR/1.73 sq M.predicted among non-blacks MDRD (S/P/Bld) [Vol rate/Area] 62 mL/min/{1.73_m2} Normal >60 [facility] Comment on above: Result Comment: mL/m in/1.73m2 CKD-EPI Creatinine Equation (2020) Performed By: #### L 503.7505, L500.2500 ####[facility] [address] [place], [address] Glucose [Mass/Vol] 104 mg/dL High 70-99 [facility] Comment on above: Performed By: #### L 503.7505, L500.2500 ####[facility] [address] [place], [address] Potassium [Moles/Vol] 4.4 mmol/L Normal 3.3-5.1 [facility] Comment on above: Performed By: #### L 503.7505, L500.2500 ####[facility] [address] [place], [address] Sodium [Moles/Vol] 137 mmol/L Normal 133-145 [facility] Comment on above: Performed By: #### L 503.7505, L500.2500 ####[facility] [address] [place], [address] Urea nitrogen [Mass/Vol] 40 mg/dL High 4-19 [facility] Comment on above: Performed By: #### L 503.7505, L500.2500 ####[facility] [address] [place], [place], [id number] Carbon dioxide, total [Moles /volume] in Central venous bloodOrdered By: Khadar Valencia on 08-12-2024 CO2 [Moles/Vol] 25.1 mmol/L 21.0-32.0 [facility] Chest PA and Lateralon 08-12 Chest PA and Lateral Normal [facility] Chloride assayOrdered By: James Valencia on 08-12-2024 Chloride [Moles/Vol] 98 mmol/L 98-108 [facility] Glomerular filtration rate ( GFR) estimation/1.73 sq m using serum, plasma, or whole bOrdered By: Khadar Valencia on 08-12-2024 GFR/1.73 sq M.predicted among non-blacks MDRD (S/P/Bld) [Vol rate/Area] 62 mL/min/{1.73_m2} >60 [facility] Comment on above: mL/min/1.73m2 CKD-EP I Creatinine Equation (2020) L503.7505on 08-12-2024 Natriuretic peptide B (Bld) [Mass/Vol] 626 pg/mL Normal <=900 [facility] Comment on above: Result Comment: Hear t Failure Unlikely: < 300 pg/mLHeart Failure Likely< 50 Years: > 450 pg/mL50-75 Years: > 900 pg/mL>75 Years: > 1800 pg/mL Performed By: #### L 503.7505, L500.2500 ####[facility] [address] [place], [place], [id number] Natriuretic peptide.B prohor renea N-Terminal [Mass/volume] in Serum or PlasmaOrdered By: Khadar Valencia on 08-12-2024 Natriuretic peptide.B prohormone N-Terminal [Mass/Vol] 626 pg/mL <900 [facility] Comment on above: Heart Failure Unlike ly: < 300 pg/mLHeart Failure Likely< 50 Years: > 450 pg/mL50-75 Years: > 900 pg/mL>75 Years: > 1800 pg/mL Potassium measurement (mass/ volume)Ordered By: Khadar Valencia on 08-12-2024 Potassium (Unsp spec) [Mass/Vol] 4.4 mmol/L 3.3-5.1 [facility] Serum creatinine measurement (mass/volume)Ordered By: Khadar Valencia on 08-12-2024 Creatinine [Mass/Vol] 1.31 mg/dL High 0.70-1.20 [facility] Serum glucose measurement (m ass/volume)Ordered By: [facility] Erik on 08-12-2024 Glucose [Mass/Vol] 104 mg/dL High 70-99 [facility] Serum or plasma calcium grazyna urement (mass/volume)Or[facility]: [facility]2024 Calcium [Mass/Vol] 9.6 mg/dL 7.6-11.0 [facility] Serum or plasma urea nitroge n measurement (mass/volume)Ordered By: [facility] 08-12-2024 Urea nitrogen [Mass/Vol] 40 mg/dL High 4-19 [facility] Sodium levelOrdered By: [facility] fernando Valencia on 08-12-2024 Sodium [Moles/Vol] 137 mmol/L 133-145 [facility] Office Visit Reporton 2024 Office Visit Report Normal [facility] ALDOLASEon 08-02-2024 ALDOLASE 4.6 U/L Normal < OR = 8.1 [facility] Comment on above: Performed By: #### 9 5458, 1759 #### [facility] [address], [address] [place] [address] Estimator And Drafter: Octavio Segovia MD RICARDO CASCADE(RICARDO,IFA W/RFL AN D REFL 11 AB CASCADE)on 08-02-2024 RICARDO SCREEN, IFA Negative Normal NEGATIVE [facility] Comment on above: Result Comment: RICARDO IFA is a first line screen for detecting the presence of up to approximately 150 autoantibodies in various autoimmune diseases. A negative RICARDO IFA result suggests an RICARDO-associated autoimmune disease is not present at this time, and does not reflex further. If there is high clinical suspicion for Sjogren's syndrome, testing for anti-SS-A/Ro antibody should be considered. Anti-Samantha-1 antibody should be considered for clinically suspected inflammatory myopathies. AC-0: Negative International Consensus on RICARDO Patterns (https://doi.org/10.1515/bywu-2516-6705) For additional information, please refer to http://education.[employer]faq/QMF900 (This link is being provided for informational/ educational purposes only.) Performed By: #### 9 2498, 1759 #### [facility] [address], [address] [place] [address] Estimator And Drafter: Octavio Segovia MD ANCA SCREEN WITH MPO AND PR3 WITH REFLEX TO ANCA TITERon 08-02-2024 ANCA SCREEN Negative Normal Negative [facility] Comment on above: Result Comment: ANCA screen uses indirect immunofluorescence to detect antibodies to neutrophil cytoplasmic antigens. A positive screen reflexes to titer and pattern. Patterns include cytoplasmic (c-ANCA) and perinuclear (p-ANCA) both of which are associated with vasculitis, and atypical p-ANCA which is associated with inflammatory bowel disease and other disorders. Performed By: #### 2 27, 4418, 4420, 88974, 809, 47388, 374 #### [facility] [address], [address] [place] [address] Estimator And Drafter: Octavio Segovia MD #### [id number], 60089 #### [facility]/[address] [address] Estimator And Drafter: Alejandra Queen MD,PhD,FAIDA #### [id number] #### [facility] [address] [place] [address] Estimator And Drafter: Waldemar Billy M.D.,PhD MYELOPEROXIDASE ANTIBODY <1.0 Normal <1.0 [facility] Comment on above: Result Comment: Value Interpretation <1.0 AI: No Antibody Detected >or=1.0 AI: Antibody Detected Autoantibodies to myeloperoxidase (MPO) are commonly associated with the following small-vessel vasculitides: microscopic polyangiitis, polyarteritis nodosa, Churg-Montez syndrome, necrotizing and crescentic glomerulonephritis and occasionally granulomatosis with polyangiitis (GPA, Kaylen's). The perinuclear IFA pattern, (p-ANCA) is based largely on autoantibody to myeloperoxidase which serves as the primary antigen. These autoantibodies are present in active disease. Performed By: #### 2 27, 4418, 4420, 95171, 809, 61714, 374 #### [facility] [place] [address] [facility], [address] [place] [address] Estimator And Drafter: Octavio Segovia MD #### 83414, 30708 #### [facility], [address] [place] [address] Estimator And Drafter: Alejandra Queen MD,PhD,FADIA #### [id number] #### [facility]/[address] [place] Estimator And Drafter: Waldemar Billy M.D.,PhD PROTEINASE-3 ANTIBODY <1.0 Normal <1.0 [facility] Comment on above: Result Comment: Value Interpretation <1.0 AI: No Antibody Detected >or=1.0 AI: Antibody Detected Autoantibodies to proteinase-3 (AL-3) are accepted as characteristic for granulomatosis with polyangiitis (GPA, Kaylen's), and are detectable in 95% of the histologically proven cases. The cytoplasmic IFA pattern, (c-ANCA), is based largely on autoantibody to AL-3 which serves as the primary antigen. These autoantibodies are present in active disease. Performed By: #### 2 27, 4418, 4420, 74369, 809, 94089, 374 #### [facility] [address], [address] [place] [address] Estimator And Drafter: Octavio Segovia MD #### 38394, 64968 #### [facility], [address] [place] [address] Estimator And Drafter: Alejandra Queen MD,PhD,FADIA #### [id number] #### [facility] [address] [facility] [address] [place] Estimator And Drafter: Waldemar Billy M.D.,PhD C-REACTIVE PROTEINon 025 CRP [Mass/Vol] 10.6 mg/L High <8.0 [facility] Comment on above: Performed By: #### 2 27, 4418, 4420, 94698, 809, 00760, 374 #### [facility] [address], [address] [place] [address] Estimator And Drafter: Octavio Segovia MD #### 58572, 02416 #### [facility], [address] [place] [address] Estimator And Drafter: Alejandra Queen MD,PhD,FADIA #### [id number] #### [facility] [place], [place] Estimator And Drafter: Waldemar Billy M.D.,PhD CREATINE KINASE, TOTALon CREATINE KINASE, TOTAL 46 U/L Normal 22-308 [facility] Comment on above: Performed By: #### 2 27, 8, 4420, 67184, 809, 73148, 374 #### [facility] [address], [address] [place] [address] Estimator And Drafter: Octavio Segovia MD #### 91402, 32661 #### [facility], [address] [place] Estimator And Drafter: Alejandra Queen MD,PhD,FADIA #### [id number] #### [facility] [place], [place] Estimator And Drafter: Waldemar Billy M.D.,PhD CYCLIC CITRULLINATED PEPTIDE (CCP) AB (IGG)on 08-02-2024 CYCLIC CITRULLINATED PEPTIDE (CCP) AB (IGG) <16 Normal [facility] Comment on above: Result Comment: Refe rence Range Negative: <20 Weak Positive: 20-39 Moderate Positive: 40-59 Strong Positive: >59 Performed By: #### 2 27, 8, 4420, 53369, 809, 86566, 374 #### [facility] [address], [address] [place] [address] Estimator And Drafter: Octavio Segovia MD #### 86782, 57684 #### [facility], [address] [facility] [address] Estimator And Drafter: Alejandra Queen MD,PhD,FADIA #### [id number] #### [facility] [address] [place] [address] Estimator And Drafter: Waldemar Billy M.D.,PhD EXTENDED MYOSITIS SPECIFIC A NTIBODY (MSA) PANELon 08-02-2024 CYTOSOLIC 5' NUCLEOTIDASE 1A (cN 1A) AB (IGG) <5 Normal [facility] Comment on above: Order Comment: FASTI NG:NO FASTING: NO Result Comment: Refe rence Range: <15: NEGATIVE 15-19: BORDERLINE > OR = 20: POSITIVE The cN-1A Ab assay is a useful aid for the diagnosis of inclusion body myositis (IBM). The analytical sensitivity of this assay is 35-70%, based on published reports. In our internal validation study with 120 healthy adult subjects, 1.7% had a positive cN-1A Ab result and 6.7% had an equivocal result. However, published reports and our own internal studies suggest that patients with Sjogren's syndrome, systemic lupus erythematosus, dermatomyositis (DM), or polymyositis (PM), are significantly more likely to have a positive cN-1A Ab result. In contrast, patients presenting clinically with IBM rarely produce autoantibodies associated with a diagnosis of DM or PM. Therefore, cN-1A Ab results must be interpreted in context with other details of the patient's clinical evaluation. This test was developed and its analytical performance characteristics have been determined by [facility]. It has not been cleared or approved by the FDA. This assay has been validated pursuant to the CLIA regulations and is used for clinical purposes. Performed By: #### 2 , 3668, 4420, 48723, 809, 35952, 374 #### [facility] [address], [address] [place], [place] [address] Estimator And Drafter: Octavio Segovia MD #### 07433, 07004 #### [facility], [address] [place] [address] Estimator And Drafter: Alejandra Queen MD,PhD,FADIA #### [id number] #### [facility]/[address] [place], [place] Estimator And Drafter: Waldemar Billy M.D.,PhD EJ AB <11 Normal <11 [facility] Comment on above: Order Comment: FASTI NG:NO FASTING: NO Performed By: #### 2 27, 4418, 4420, 54333, 809, 53881, 374 #### [facility] [address], [address] [place] [address] Estimator And Drafter: Octavio Segovia MD #### 12005, 25348 #### [facility], [address] [place] [address] Estimator And Drafter: Alejandra Queen MD,PhD,FADIA #### 40517 #### [facility] [address] [place] [address] [place], [place] Estimator And Drafter: Waldemar Billy M.D.,PhD HMGCR AB (IGG) <2 Normal <20 [facility] Comment on above: Order Comment: FASTI NG:NO FASTING: NO Result Comment: 4-Qezrvsn-4-Methylglutaryl-Coenzyme A Reductase (HMGCR) Ab is associated with necrotizing myopathy and is often found with the use of statin medications. Rarely, HMGCR Ab associated myositis has also been seen in patients ingesting mushrooms and other foods. Performed By: #### 2 27, 4418, 4420, 90024, 809, 72189, 374 #### [facility] [address], [address] [place] [address] Estimator And Drafter: Octavio Segovia MD #### 80948, 10247 #### [facility], [address] [facility] [place] Estimator And Drafter: Alejandra Queen MD,PhD,FADIA #### 36793 #### [facility]/[address] [place] Estimator And Drafter: Waldemar Billy M.D.,PhD SAMANTHA-1 AB <11 Normal <11 [facility] Comment on above: Order Comment: FASTI NG:NO FASTING: NO Performed By: #### 2 27, 4418, 4420, 85336, 809, 86499, 374 #### [facility] [address], [address] [place] [address] Estimator And Drafter: Octavio Segovia MD #### 52931, 97057 #### [facility], [address] [place], [place] Estimator And Drafter: Alejandra Queen MD,PhD,FADIA #### [id number] #### [facility]/[address] [place] Estimator And Drafter: Waldemar Billy M.D.,PhD MDA5 AB <11 Normal <11 [facility] Comment on above: Order Comment: FASTI NG:NO FASTING: NO Performed By: #### 2 27, 4418, 4420, 00514, 809, 80694, 374 #### [facility] [address] [facility], [address] [place] [address] Estimator And Drafter: Octavio Segovia MD #### 46240, 13951 #### [facility], [address] [place], [place] Estimator And Drafter: Alejandra Queen MD,PhD,FADIA #### 43110 #### [facility]/[place] [address] [facility] [address] [place], [place] Estimator And Drafter: Waldemar Billy M.D.,PhD OR-2 ALPHA AB <11 Normal <11 [facility] Comment on above: Order Comment: FASTI NG:NO FASTING: NO Performed By: #### 2 27, 4418, 4420, 06787, 809, 34585, 374 #### [facility] [address], [address] [place] [address] Estimator And Drafter: Octavio Segovia MD #### 74869, 55850 #### [facility], [address] [place] [address] Estimator And Drafter: Alejandra Queen MD,PhD,FADIA #### 66996 #### [facility] [place], [place] Estimator And Drafter: Waldemar Billy M.D.,PhD OR-2 BETA AB <11 Normal <11 [facility] Comment on above: Order Comment: FASTI NG:NO FASTING: NO Performed By: #### 2 27, 4418, 4420, 00027, 809, 74211, 374 #### [facility] [address], [address] [place] [address] Estimator And Drafter: Octavio Segovia MD #### 01007, 21276 #### [facility], [address] [place], [place] Estimator And Drafter: Alejandra Queen MD,PhD,FADIA #### [id number] #### [facility] [address] [place] Estimator And Drafter: Waldemar Billy M.D.,PhD NXP-2 AB <11 Normal <11 [facility] Comment on above: Order Comment: FASTI NG:NO FASTING: NO Result Comment: Myositis-specific autoantibodies (MSAs) are highly selective, generally mutually exclusive, and are associated with a particular clinical phenotype within the myositis spectrum. Anti-synthetase syndrome is associated with MSAs to cytoplasmic enzymes and tRNAs involved with the synthesis of proteins. Target antigens include Samantha-1, PL-7, PL-12, EJ, and OJ. Clinically, anti-synthetase syndrome is primarily characterized by myositis and lung inflammation. Dermatomyositis is associated with MSAs to SRP, Mi-2A, Mi-2B, and clinically this disease is characterized by myositis in association with a rash. Additionally, MSAs to MDA5 ([id number]) have been identified in patients with clinically amyopathic dermatomyositis and rapidly progressive lung disease. MSAs to TIF1-y and NXP-2, collectively, are seen in >40% of children with dermatomyositis and appear to identify those with more severe disease. Finally, TIF1-y Ab has been reported in adults with dermatomyositis and is associated with malignancy, but not in children. SRP Ab has also been associated with necrotizing myopathy, a disease with unique histological features and an aggressive clinical course. This test was developed and its analytical performance characteristics have been determined by [facility]. It has not been cleared or approved by the FDA. This assay has been validated pursuant to the CLIA regulations and is used for clinical purposes. Performed By: #### 2 , 4418, 4420, 30145, 809, 42417, 374 #### [facility] [address], [address] [place] [address] Estimator And Drafter: Octavio Segovia MD #### 93728, 37115 #### [facility]/[address] [address] Estimator And Drafter: Alejandra Queen MD,PhD,FADIA #### [id number] #### [facility] [address] [place] [address] Estimator And Drafter: Waldemar Billy M.D.,PhD OJ AB <11 Normal <11 [facility] Comment on above: Order Comment: FASTI NG:NO FASTING: NO Performed By: #### 2 27, 4418, 4420, 89581, 809, 63784, 374 #### [facility] [address], [address] [place] [address] Estimator And Drafter: Octavio Segovia MD #### 29752, 18490 #### [facility], [address] [facility] [place] Estimator And Drafter: Alejandra Queen MD,PhD,FADIA #### 68127 #### [facility]/[address] [place], [place] Estimator And Drafter: Waldemar Billy M.D.,PhD PL-12 AB <11 Normal <11 [facility] Comment on above: Order Comment: FASTI NG:NO FASTING: NO Performed By: #### 2 27, 4418, 4420, 81134, 809, 87501, 374 #### [facility] [place] [address] [address] , [address] [place] [address] Estimator And Drafter: Octavio Segovia MD #### 35809, 17393 #### [facility], [address] [place], [place] Estimator And Drafter: Alejandra Queen MD,PhD,FADIA #### 45171 #### [facility] [address] [place] [address] [place], [place] Estimator And Drafter: Waldemar Billy M.D.,PhD PL-7 AB <11 Normal <11 [facility] Comment on above: Order Comment: FASTI NG:NO FASTING: NO Performed By: #### 2 27, 4418, 4420, 46405, 809, 18960, 374 #### [facility] [place] [address] [address] , [address] [place] [address] Estimator And Drafter: Octavio Segovia MD #### 81905, 66352 #### [facility], [address] [facility] [place] Estimator And Drafter: Alejandra Queen MD,PhD,FADIA #### 53902 #### [facility]/[address] [place] Estimator And Drafter: Waldemar Billy M.D.,PhD SRP AB <11 Normal <11 [facility] Comment on above: Order Comment: FASTI NG:NO FASTING: NO Performed By: #### 2 27, 4418, 4420, 92850, 809, 75489, 374 #### [facility] [address], [address] [place] [address] Estimator And Drafter: Octavio Segovia MD #### [id number], [id number] #### [facility], [address] [facility] [place] Estimator And Drafter: Alejandra Queen MD,PhD,FADIA #### [id number] #### [facility]/[place] [id number] [facility] [place], [place] Estimator And Drafter: Waldemar Billy M.D.,PhD TIF1 GAMMA AB <11 Normal <11 [facility] Comment on above: Order Comment: FASTI NG:NO FASTING: NO Performed By: #### 2 27, 4418, 4420, 95630, 809, 18746, 374 #### [facility] [address], [address] [place] [address] Estimator And Drafter: Octavio Segovia MD #### [id number], [id number] #### [facility], [address] [facility] [place] Estimator And Drafter: Alejandra Queen MD,PhD,FADIA #### [id number] #### [facility]/[place] [id number] [facility] [address] [place] Estimator And Drafter: Waldemar Billy M.D.,PhD HYPERSENSITIVITY PNEUMONITIS SCREENon 08-02-2024 ASPERGILLUS FUMIGATUS Negative Normal NEGATIVE Que [facility] Comment on above: Performed By: #### 2 27, 4418, 4420, 29049, 809, 04000, 374 #### [facility] of [facility] [address], [address] [place] [address] Estimator And Drafter: Octavio Segovia MD #### [id number], [id number] #### [facility], [address] [facility] [place] Estimator And Drafter: Alejandra Queen MD,PhD,FADIA #### [id number] #### [facility]/[address] [place], [place] Estimator And Drafter: Waldemar Billy M.D.,PhD MICROPOLYSPORA FAENI Negative Normal NEGATIVE Ques t Diagnostics Comment on above: Performed By: #### 2 27, 4418, 4420, 49884, 809, 39604, 374 #### [facility] of [place] [address], [address] [place], [place] [id number] Estimator And Drafter: Octavio Segovia MD #### [id number], [id number] #### [facility], [address] [place] Estimator And Drafter: Alejandra Queen MD,PhD,FADIA #### [id number] #### [facility]/[address] [place], [place] Estimator And Drafter: Waldemar Billy M.D.,PhD PIGEON SERUM Negative Normal NEGATIVE [facility] Comment on above: Performed By: #### 2 27, 4418, 4420, 55499, 809, 22443, 374 #### [facility] of [facility] [address], [address] [place] [address] Estimator And Drafter: Octavio Segovia MD #### [id number], [id number] #### [facility], [address] [facility] [place] Estimator And Drafter: Alejandra Queen MD,PhD,FADIA #### [id number] #### [facility]/[address] [place] Estimator And Drafter: Waldemar Billy M.D.,PhD SMindi MAYORGA Negative Normal NEGATIVE [facility] Comment on above: Result Comment: This test was developed and its analytical performance characteristics have been determined by [employer]. It has not been cleared or approved by the FDA. This assay has been validated pursuant to the CLIA regulations and is used for clinical purposes. Performed By: #### 2 27, 4418, 4420, 33122, 809, 48288, 374 #### [facility] [address], [address] [place] [address] Estimator And Drafter: Octavio Segovia MD #### [id number], [id number] #### [facility], [address] [place] Estimator And Drafter: Alejandra Queen MD,PhD,FADIA #### [id number] #### [facility] [address] [place] [address] [place], [place] Estimator And Drafter: Waldemar Billy M.D.,PhD T. CANDIDUS Negative Normal NEGATIVE [facility] Comment on above: Performed By: #### 2 27, 4418, 4420, 12506, 809, 40950, 374 #### [facility] [address], [address] [place], [place] [address] Estimator And Drafter: Octavio Segovia MD #### [id number], [id number] #### [facility], [address] [place] [place], [place] Estimator And Drafter: Alejandra Queen MD,PhD,FADIA #### [id number] #### [facility] [address] [facility] [address] [place] Estimator And Drafter: Waldemar Billy M.D.,PhD T. VULGARIS Negative Normal NEGATIVE [facility] Comment on above: Performed By: #### 2 27, 4418, 4420, 45449, 809, 62563, 374 #### [facility] of [address], [address] [place] [address] Estimator And Drafter: Octavio Segovia MD #### [id number], 55639 #### [facility], [address] [place] [address] Estimator And Drafter: Alejandra Queen MD,PhD,FADIA #### [id number] #### [facility]/[address] [place], [place] Estimator And Drafter: Waldemar Billy M.D.,PhD RHEUMATOID FACTORon 08-03-19 25 RHEUMATOID FACTOR 41 IU/mL High <14 [facility] Comment on above: Performed By: #### 2 27, 4418, 4420, 50212, 809, 23938, 374 #### [facility] of [address], [address] [place] [address] Estimator And Drafter: Octavio Segovia MD #### [id number], 07014 #### [facility]/[place] [address] Estimator And Drafter: Alejandra Queen MD,PhD,FADIA #### [id number] #### [facility]/[address] [place], [place] Estimator And Drafter: Waldemar Billy M.D.,PhD SED RATE BY MODIFIED WESTERG RENon 08-02-2024 SED RATE BY MODIFIED WESTERGREN 36 mm/h High < OR = 20 [facility] Comment on above: Performed By: #### 2 27, 4418, 4420, 06395, 809, 53298, 374 #### [facility] of [address] , [address] [place] [address] Estimator And Drafter: Octavio Segovia MD #### [id number], 66068 #### [facility], [address] [place] [address] Estimator And Drafter: Alejandra Queen MD,PhD,FADIA #### [id number] #### [facility] [address] [place] [address] Estimator And Drafter: Waldemar Billy M.D.,PhD TRANSTHORACIC ECHO (TTE) [facility] 07-23-2024 TRANSTHORACIC ECHO (TTE) COMPLETE [facility] [place] [address] [facility], [address], [place] [address] TRANSTHORACIC ECHOCARDIOGRAM REPORT Patient Name: KRUNAL LEOS Reading Physician: [id number] David Nguyễn MD Study Date: 07/23/2024 Ordering Provider: [id number] PADRON MRN/PID: [id number] Fellow: Nurse: Date of /Age: 5 1965 Rotary Adjuster: Ena hernandez ALBERTO Gender assigned at Additional Staff: : Height: 175.26 cm Admit Date: Weight: 141.07 kg Admission Status: Outpatient BSA / BMI: 2.49 m2 / 45.93 kg/m2 Blood Pressure: 157/78 mmHg Department Location: [facility] Study Type: TRANSTHORACIC ECHO (TTE) COMPLETE Diagnosis/ICD: Pulmonary hypertension, unspecified-I27.20 Indication: Pulmonary hypertension CPT Code: Echo Complete w Full Doppler-10720 Study Detail: The following Echo studies were performed: 2D, M-Mode, Doppler and color flow. Technically challenging study due to poor acoustic windows, prominent lung artifact and body habitus. PHYSICIAN INTERPRETATION: Left Ventricle: Left ventricular ejection fraction is normal, by visual estimate at 60-65%. There are no regional left ventricular wall motion abnormalities. The left ventricular cavity size is normal. Spectral Doppler shows a Grade I (impaired relaxation pattern) of left ventricular diastolic filling with normal left atrial filling pressure. Left Atrium: The left atrial size was not well visualized. Right Ventricle: The right ventricle was not well visualized. Unable to determine right ventricular systolic function. Right Atrium: The right atrial size was not well visualized. Aortic Valve: The aortic valve is probably trileaflet. There is mild aortic valve cusp calcification. There is evidence of mild aortic valve stenosis. The aortic valve dimensionless index is 0.57. There is no evidence of aortic valve regurgitation. The peak instantaneous gradient of the aortic valve is 18 mmHg. The mean gradient of the aortic valve is 10 mmHg. Mitral Valve: The mitral valve is mildly thickened. There is mild mitral annular calcification. There is no evidence of mitral valve regurgitation. Tricuspid Valve: The tricuspid valve was not well visualized. No evidence of tricuspid regurgitation. The right ventricular systolic pressure is unable to be estimated. Pulmonic Valve: The pulmonic valve is not well visualized. The pulmonic valve regurgitation was not well visualized. Pericardium: There is no pericardial effusion noted. Aorta: The aortic root was not well visualized. Systemic Veins: The inferior vena cava was not well visualized. In comparison to the previous echocardiogram(s): There are no prior studies on this patient for comparison purposes. CONCLUSIONS: 1. Left ventricular ejection fraction is normal, by visual estimate at 60-65%. 2. Spectral Doppler shows a Grade I (impaired relaxation pattern) of left ventricular diastolic filling with normal left atrial filling pressure. 3. Unable to determine right ventricular systolic function. 4. Mild aortic valve stenosis. QUANTITATIVE DATA SUMMARY: LV SYSTOLIC FUNCTION: Normal Ranges: EF-Visual: 63 % LV EF Reported: 63 % LV DIASTOLIC FUNCTION: Normal Ranges: MV Peak E: 0.86 m/s (0.7-1.2 m/s) MV Peak A: 1.05 m/s (0.42-0.7 m/s) E/A Ratio: 0.82 (1.0-2.2) MV e' 0.071 m/s (>8.0) MV lateral e' 0.08 m/s MV medial e' 0.06 m/s MV A Dur: 145.00 msec E/e' Ratio: 12.19 (<8.0) PulmV A Revs Dur: 121.00 msec MITRAL VALVE: Normal Ranges: MV DT: 311 msec (150-240msec) AORTIC VALVE: Normal Ranges: AoV Vmax: 2.12 m/s (<=1.7m/s) AoV Peak P.0 mmHg (<20mmHg) AoV Mean P.0 mmHg (1.7-11.5mmHg) LVOT Max Chin: 0.99 m/s (<=1.1m/s) AoV VTI: 43.80 cm (18-25cm) LVOT VTI: 25.00 cm LVOT Diameter: 2.00 cm (1.8-2.4cm) AoV Area, VTI: 1.79 cm2 (2.5-5.5cm2) AoV Area,Vmax: 1.46 cm2 (2.5-4.5cm2) AoV Dimensionless Index: 0.57 PULMONARY VEINS: PulmV A Revs Dur: 121.00 msec [id number] David Nguyễn MD Electronically signed on 07/24/2024 at 9:17:53 AM Final [facility] CT CHEST HIGH RESOLUTIONon 0 07-20-2024 CT CHEST HIGH RESOLUTION Interpreted By: Julissa Bolaños, STUDY: CT CHEST HIGH RESOLUTION; 07/20/2024 12:56 pm INDICATION: Signs/Symptoms:ILD. COMPARISON: None. ACCESSION NUMBER(S): [id number] ORDERING CLINICIAN: ROSALINO PADRON TECHNIQUE: Using helical multidetector technique, volumetric data acquisition of the chest was obtained without intravenous administration of contrast material under the high resolution chest CT protocol. Examination includes contiguous slices through the chest in supine positioning during inspiration, noncontiguous axial slices in supine positioning during expiration and prone positioning during inspiration. FINDINGS: LUNGS AND AIRWAYS: The trachea and central airways are patent. No endobronchial lesion is seen. There is extensive subpleural reticulation and scattered areas of bronchiectasis and bronchiolectasis with no definite evidence of honeycombing. Significant component of mosaic attenuation and interlobular septal thickening. Expiratory imaging demonstrates no evidence of air-trapping. 4 mm left lower lobe nodule, image 148/324. MEDIASTINUM AND NIDA, LOWER NECK AND AXILLA: The visualized thyroid gland is within normal limits. No evidence of thoracic lymphadenopathy by CT criteria. Small hiatal hernia. Small amount of fluid in the esophagus. HEART AND VESSELS: The thoracic aorta normal in course and caliber.There are mild to moderate scattered calcified atherosclerosis present. Main pulmonary artery is slightly dilated measuring 3.3 cm. Moderate coronary artery calcifications are seen. Please note,the study is not optimized for evaluation of coronary arteries. Heart size is slightly enlargedthere are prominent aortic valvular califications seen, and correlate with concern for aortic stenosis. There is no pericardial effusion seen. UPPER ABDOMEN: Calcified stone in the gallbladder. Hypodense lesion in the superior pole of the left kidney, likely a renal cyst. CHEST WALL AND OSSEOUS STRUCTURES: Chest wall is within normal limits. No acute osseous pathology.There are no suspicious osseous lesions. Multilevel degenerative changes in the thoracic spine. Mild bilateral gynecomastia. IMPRESSION: 1. Extensive subpleural reticulation with scattered areas of bronchiectasis and bronchiolectasis and no evidence of honeycombing. There is significant mosaic attenuation of the lungs with interlobular septal thickening. Findings are in keeping with diffuse fibrotic process. Consider fibrotic/cellular NSIP. Given presence of mosaic attenuation and interlobular septal thickening, cannot exclude component of interstitial pulmonary edema. 2. Mild cardiomegaly with moderate coronary artery calcification. Correlate with coronary artery disease risk factors. 3. Slightly dilated main pulmonary artery which can be seen in pulmonary artery hypertension. 4. Esophagus is slightly patulous with fluid. There is also small hiatal hernia. Correlate with concern for reflux. 5. 4 mm nodule in the left lower lobe. Instructions: No further follow-up is required, however, if the patient has high risk factors for primary lung malignancy, follow-up noncontrast CT scan chest in 12 months may be obtained. (Konrad Webbhosalma et al., Guidelines for management of incidental pulmonary nodules detected on CT images: From the Fleischner Society 2017, Radiology. 2017 South;284 (1):228-243.) FLEISCHNER.ACR.IF.1 MACRO: None Signed by: Julissa Banuelos 07/20/2024 1:33 PM Dictation workstation: [id number] [facility] CT Cheston 07-20-2024 1. Extensive subpleu ral reticulation with scattered areas of bronchiectasis and bronchiolectasis and no evidence of honeycombing. There is significant mosaic attenuation of the lungs with interlobular septal thickening. Findings are in keeping with diffuse fibrotic process. Consider fibrotic/cellular NSIP. Given presence of mosaic attenuation and interlobular septal thickening, cannot exclude component of interstitial pulmonary edema. 2. Mild cardiomegaly with moderate coronary artery calcification. Correlate with coronary artery disease risk factors. 3. Slightly dilated main pulmonary artery which can be seen in pulmonary artery hypertension. 4. Esophagus is slightly patulous with fluid. There is also small hiatal hernia. Correlate with concern for reflux. 5. 4 mm nodule in the left lower lobe. Instructions: No further follow-up is required, however, if the patient has high risk factors for primary lung malignancy, follow-up noncontrast CT scan chest in 12 months may be obtained. (Konrad Farris et al., Guidelines for management of incidental pulmonary nodules detected on CT images: From the Fleischner Society 2017, Radiology. 2017 South;284 (1):228-243.) FLEISCHNER.ACR.IF.1 MACRO: None Signed by: Julissa Banuelos 07/20/2024 1:33 PM Dictation workstation: [id number] [facility] Interpreted By: Julissa Pleitez, STUDY: CT CHEST HIGH RESOLUTION; 07/20/2024 12:56 pm INDICATION: Signs/Symptoms:ILD. COMPARISON: None. ACCESSION NUMBER(S): [id number] ORDERING CLINICIAN: ROSALINO PADRON TECHNIQUE: Using helical multidetector technique, volumetric data acquisition of the chest was obtained without intravenous administration of contrast material under the high resolution chest CT protocol. Examination includes contiguous slices through the chest in supine positioning during inspiration, noncontiguous axial slices in supine positioning during expiration and prone positioning during inspiration. FINDINGS: LUNGS AND AIRWAYS: The trachea and central airways are patent. No endobronchial lesion is seen. There is extensive subpleural reticulation and scattered areas of bronchiectasis and bronchiolectasis with no definite evidence of honeycombing. Significant component of mosaic attenuation and interlobular septal thickening. Expiratory imaging demonstrates no evidence of air-trapping. 4 mm left lower lobe nodule, image 148/324. MEDIASTINUM AND NIDA, LOWER NECK AND AXILLA: The visualized thyroid gland is within normal limits. No evidence of thoracic lymphadenopathy by CT criteria. Small hiatal hernia. Small amount of fluid in the esophagus. HEART AND VESSELS: The thoracic aorta normal in course and caliber.There are mild to moderate scattered calcified atherosclerosis present. Main pulmonary artery is slightly dilated measuring 3.3 cm. Moderate coronary artery calcifications are seen. Please note,the study is not optimized for evaluation of coronary arteries. Heart size is slightly enlargedthere are prominent aortic valvular califications seen, and correlate with concern for aortic stenosis. There is no pericardial effusion seen. UPPER ABDOMEN: Calcified stone in the gallbladder. Hypodense lesion in the superior pole of the left kidney, likely a renal cyst. CHEST WALL AND OSSEOUS STRUCTURES: Chest wall is within normal limits. No acute osseous pathology.There are no suspicious osseous lesions. Multilevel degenerative changes in the thoracic spine. Mild bilateral gynecomastia. [facility] Pete Bolaños MD - 07/20/2024 Interpreted By: Julissa Bolaños, STUDY: CT CHEST HIGH RESOLUTION; 07/20/2024 12:56 pm INDICATION: Signs/Symptoms:ILD. COMPARISON: None. ACCESSION NUMBER(S): [id number] ORDERING CLINICIAN: ROSALINO PADRON TECHNIQUE: Using helical multidetector technique, volumetric data acquisition of the chest was obtained without intravenous administration of contrast material under the high resolution chest CT protocol. Examination includes contiguous slices through the chest in supine positioning during inspiration, noncontiguous axial slices in supine positioning during expiration and prone positioning during inspiration. FINDINGS: LUNGS AND AIRWAYS: The trachea and central airways are patent. No endobronchial lesion is seen. There is extensive subpleural reticulation and scattered areas of bronchiectasis and bronchiolectasis with no definite evidence of honeycombing. Significant component of mosaic attenuation and interlobular septal thickening. Expiratory imaging demonstrates no evidence of air-trapping. 4 mm left lower lobe nodule, image 148/324. MEDIASTINUM AND NIDA, LOWER NECK AND AXILLA: The visualized thyroid gland is within normal limits. No evidence of thoracic lymphadenopathy by CT criteria. Small hiatal hernia. Small amount of fluid in the esophagus. HEART AND VESSELS: The thoracic aorta normal in course and caliber.There are mild to moderate scattered calcified atherosclerosis present. Main pulmonary artery is slightly dilated measuring 3.3 cm. Moderate coronary artery calcifications are seen. Please note,the study is not optimized for evaluation of coronary arteries. Heart size is slightly enlargedthere are prominent aortic valvular califications seen, and correlate with concern for aortic stenosis. There is no pericardial effusion seen. UPPER ABDOMEN: Calcified stone in the gallbladder. Hypodense lesion in the superior pole of the left kidney, likely a renal cyst. CHEST WALL AND OSSEOUS STRUCTURES: Chest wall is within normal limits. No acute osseous pathology.There are no suspicious osseous lesions. Multilevel degenerative changes in the thoracic spine. Mild bilateral gynecomastia. IMPRESSION: 1. Extensive subpleural reticulation with scattered areas of bronchiectasis and bronchiolectasis and no evidence of honeycombing. There is significant mosaic attenuation of the lungs with interlobular septal thickening. Findings are in keeping with diffuse fibrotic process. Consider fibrotic/cellular NSIP. Given presence of mosaic attenuation and interlobular septal thickening, cannot exclude component of interstitial pulmonary edema. 2. Mild cardiomegaly with moderate coronary artery calcification. Correlate with coronary artery disease risk factors. 3. Slightly dilated main pulmonary artery which can be seen in pulmonary artery hypertension. 4. Esophagus is slightly patulous with fluid. There is also small hiatal hernia. Correlate with concern for reflux. 5. 4 mm nodule in the left lower lobe. Instructions: No further follow-up is required, however, if the patient has high risk factors for primary lung malignancy, follow-up noncontrast CT scan chest in 12 months may be obtained. (Konrad Farris et al., Guidelines for management of incidental pulmonary nodules detected on CT images: From the Fleischner Society 2017, Radiology. 2017 South;284 (1):228-243.) FLEKARENNER.ACR.IF.1 MACRO: None Signed by: Julissa Banuelos 07/20/2024 1:33 PM Dictation workstation: [id number] [facility] Work Phone: Radiology Study observation (narrative) [facility] Work Phone: CT ChestOrdered By: Julsisa Banuelos on 07-20-2024 [facility] Work Phone: Office Visit Reporton 2024 [facility] Report Normal [facility] Office Visit Reporton 2024 [facility] Patient called in as his pharmacist was concerned about him taking brillinta and eliquis together. I explained to him that per last notes from [facility] and Dr. Culp, they recommend he take both along with aspirin d/t his severe R MCA stenosis making him high risk for more strokes. He has been on less aggressive combinations of AC's and DAPT in the past that did not seem to be effective enough. I told him that if the pharmacist needs any further confirmation to please reach out to us. Patient is concerned he had another TIA a week ago. He states he fell, became disoriented, had left sided facial droop, left sided weakness. He did not hit his head when he fell. His fall was witnessed by his . He did not go to the ER as he felt it was unnecessary as the TIA only lasted about 10 minutes. I told him he should call 911 or go to the emergency room if he has any further stroke symptoms. There may be benefit it getting new scans if symptoms are reoccurring. I also educated the patient that if he falls and does hit his head he should go to the ER to be evaluated for a brain bleed since he is on such aggressive anticoagulation/antiplate let therapy. Patient was concerned about having a bruise on his foot that he did not remember even bumping. He was wondering if the anticoagulation/antiplate let therapy was too much if he is bruising so easily. I told him this can be expected.. We did review signs and symptoms of a excessive and prolonged bleeding such as blood in urine or stool. He verbalized understanding that these would be cause for concern and to seek medical attention immediately. Normal [facility] 12 Lead EKG performed by [facility] on 05-21-2024 12 Lead EKG performed by [facility] Normal [facility] Basic Metabolic Profile (BMP )on 05-21-2024 BUN/CRE 21.2 RATIO High 01-18 [facility] Comment on above: Performed By: #### L 500.2500 ####[facility] [address] [place], [place], [id number] [place],Total 9.6 mg/dL Normal 8.5-10.1 [facility] Comment on above: Performed By: #### L 500.2500 ####[facility] [address] [place], [place], [id number] Chloride [Moles/Vol] 99 mmol/L Normal 98-107 [facility] Comment on above: Performed By: #### L 500.2500 ####[facility] [address] [place], [address] CO2 [Moles/Vol] 26.0 mmol/L Normal 21.0-32.0 [facility] Comment on above: Performed By: #### L 500.2500 ####[facility] [address] [place], [address] Creatinine [Mass/Vol] 1.60 mg/dL High 0.70-1.30 [facility] Comment on above: Result Comment: The validity of the calculated GFR GFRAA in patients over70 years has not been determined. Clinical correlation isessential. Performed By: #### L 500.2500 ####[facility] [address] [place], [address] EST GFR - AA 57 mL/min Low >60 [facility] Comment on above: Result Comment: Afri can [place] GFR Calc Performed By: #### L 500.2500 ####[facility] [address] [place], [address] GAP 12 Normal 5-15 [facility] Comment on above: Performed By: #### L 500.2500 ####[facility] [address] [place], [address] GFR/1.73 sq M.predicted among non-blacks MDRD (S/P/Bld) [Vol rate/Area] 47 mL/min/{1.73_m2} Low >60 [facility] Comment on above: Result Comment: Non- GFR Calc Performed By: #### L 500.2500 ####[facility] [address] [place], [address] Glucose [Mass/Vol] 174 mg/dL High 74-106 [facility] [place] Comment on above: Result Comment: Fast ing Glucose result greater than or equal to 126 mg/dLsuggests DIABETES MELLITUS per A.D.A. criteria. Performed By: #### L 500.2500 ####[facility] [address] [place], [address] Potassium [Moles/Vol] 3.8 mmol/L Normal 3.5-5.1 [facility] Comment on above: Performed By: #### L 500.2500 ####[facility] [address] [place], [address] Sodium [Moles/Vol] 136 mmol/L Normal 136-145 [facility] [place] Comment on above: Performed By: #### L 500.2500 ####[facility] [address] [place], [address] Urea nitrogen [Mass/Vol] 34 mg/dL High 7-18 [facility] Comment on above: Performed By: #### L 500.2500 ####[facility] [address] [place], [place], [id number] Bilirubin directOrdered By: SAV Rojas on 05-21-2024 Bilirubin.direct [Mass/Vol] 0.32 mg/dL High 0.00-0.30 [facility] Bilirubin, totalOrdered By: SAV Rojas on 05-21-2024 Bilirubin [Mass/Vol] 1.40 mg/dL High 0.20-1.00 [facility] Comment on above: For patients on eltr ombopag therapy, use of Dimension [place] TBIL is not recommended. Blood urea nitrogen (BUN)/cr eatinine ratioOrdered By: Lydia Segura on 05-21-2024 Urea nitrogen/Creatinine [Mass ratio] 21.2 mg/mg High 10-20 [facility] Carbon dioxide measurementOr dered By: Lydia Segura on 05-21-2024 CO2 [Moles/Vol] 26.0 mmol/L 21.0-32.0 [facility] Cardiology Visit Reporton Cardiology Visit Report Normal [facility] Chloride measurementOrdered By: Lydia Segura on 05-21-2024 Chloride [Moles/Vol] 99 mmol/L 98-107 [facility] Glomerular filtration rate ( GFR) estimationOrdered By: Lydia Segura on 05-21-2024 GFR/1.73 sq M.predicted among non-blacks MDRD (S/P/Bld) [Vol rate/Area] 47 mL/min/{1.73_m2} Low >60 [facility] Comment on above: Non- GFR Calc Glucose measurementOrdered B y: Lydia Segura on 05-21-2024 Glucose [Mass/Vol] 174 mg/dL High 74-106 [facility] [place] Comment on above: Fasting Glucose resu lt greater than or equal to 126 mg/dL suggests DIABETES MELLITUS per A.D.A. criteria. Laboratory - Chemistry and C hemistry - challengeOrdered By: SAV Rojas on 05-21-2024 AST [Catalytic activity/Vol] 18 U/L 15-37 [facility] Liver Profileon 05-21-2024 Albumin [Mass/Vol] 3.4 g/dL Normal 3.2-5.0 [facility] [place] Comment on above: Order Comment: 1 mo. after 1st dose of OFEV, monthly for 1st 3 mo Performed By: #### L 500.3400 ####[facility] [address] [place], [address] ALK P 81 U/L Normal 45-117 [facility] Comment on above: Order Comment: 1 mo. after 1st dose of OFEV, monthly for 1st 3 mo Performed By: #### L 500.3400 ####[facility] [address] [place], [address] ALT [Catalytic activity/Vol] 17 U/L Normal 16-61 [facility] Comment on above: Order Comment: 1 mo. after 1st dose of OFEV, monthly for 1st 3 mo Performed By: #### L 500.3400 ####[facility] [address] [place], [address] AST [Catalytic activity/Vol] 18 U/L Normal 15-37 [facility] Comment on above: Order Comment: 1 mo. after 1st dose of OFEV, monthly for 1st 3 mo Performed By: #### L 500.3400 ####[facility] [address] [place], [place], [id number] Bilirubin [Mass/Vol] 1.40 mg/dL High 0.20-1.00 [facility] Comment on above: Order Comment: 1 mo. after 1st dose of OFEV, monthly for 1st 3 mo Result Comment: For patients on eltrombopag therapy, use of [place] TBIL is not recommended. Performed By: #### L 500.3400 ####[facility] [address] [place], [address] Bilirubin.direct [Mass/Vol] 0.32 mg/dL High 0.00-0.30 [facility] Comment on above: Order Comment: 1 mo. after 1st dose of OFEV, monthly for 1st 3 mo Performed By: #### L 500.3400 ####[facility] [address] [place], [place], [id number] Globulin (S) [Mass/Vol] 5.1 g/dL High 2.2-4.2 [facility] Comment on above: Order Comment: 1 mo. after 1st dose of OFEV, monthly for 1st 3 mo Performed By: #### L 500.3400 ####[facility] [address] [place], [address] T PROT 8.5 g/dL High 6.4-8.2 [facility] Comment on above: Order Comment: 1 mo. after 1st dose of OFEV, monthly for 1st 3 mo Performed By: #### L 500.3400 ####[facility] [address] [place], [place], [id number] No Panel InformationOrdered By: SAV Rojas on 05-21-2024 18 U/L 15-37 [facility] Potassium measurementOrdered By: Lydia Segura on 05-21-2024 Potassium [Moles/Vol] 3.8 mmol/L 3.5-5.1 [facility] Serum anion gap measurementO rdered By: Lydia Segura on 05-21-2024 Anion gap [Moles/Vol] 12 mmol/L 5-15 [facility] Serum globulin measurementOr dered By: SAV Rojas on 05-21-2024 Globulin (S) [Mass/Vol] 5.1 g/dL High 2.2-4.2 [facility] Serum or plasma alanine briscoe otransferase (ALT) measurementOrdered By: SAV Rojas on 05-21-2024 ALT [Catalytic activity/Vol] 17 U/L 16-61 [facility] Serum or plasma albumin grazyna urement (mass/volume)Ordered By: SAV Rojas on 05-21-2024 Albumin [Mass/Vol] 3.4 g/dL 3.2-5.0 [facility] Serum or plasma alkaline benjamin sphatase measurementOrdered By: SAV Rojas on 05-21-2024 ALP [Catalytic activity/Vol] 81 U/L 45-117 [facility] Serum or plasma calcium grazyna urement (mass/volume)Ordered By: Lydia Segura on 05-21-2024 Calcium [Mass/Vol] 9.6 mg/dL 8.5-10.1 [facility] Serum or plasma creatinine m easurement (mass/volume)Ordered By: Lydia Segura on 05-21-2024 Creatinine [Mass/Vol] 1.60 mg/dL High 0.70-1.30 [facility] Comment on above: The validity of the calculated GFR & GFRAA in patients over 70 years has not been determined. Clinical correlation is essential. Serum or plasma urea nitroge n measurement (mass/volume)Ordered By: Lydia Segura on 05-21-2024 Urea nitrogen [Mass/Vol] 34 mg/dL High 7-18 [facility] Sodium levelOrdered By: Macho Segura on 05-21-2024 Sodium [Moles/Vol] 136 mmol/L 136-145 [facility] Total proteinOrdered By: SAV Rojas on 05-21-2024 Protein [Mass/Vol] 8.5 g/dL High 6.4-8.2 [facility] 36on 05-13-2024 36 Patient lv with questions about what medications he should be taking post op. I returned his call but had to [facility] with call back number. Normal [facility] 36on 05-08-2024 36 Spoke with Mr. Anibal gonzales regarding results of PRU test. He confirms he has had no missed doses of clopidogrel, and given the laboratory findings he is a non-responder to this medication. Recommend to resume Eliquis, continue ASA, and discontinue clopidogrel. Will start Brilenta for stroke risk reduction and continue to aggressively manage his other medical issues. He is at high risk of stroke given the severe right MCA stenosis, and we will consider endovascular intervention should he fail this aggressive medical therapy. He is also at risk for bleeding given triple therapy, and he and his expressed understanding of all these risks. Will continue this regimen for at least 1 year and consider lifelong pending his clinical course. He is to call the office or 911 with any new stroke symptoms so we can consider endovascular interventions. Left a message with PCP to coordinate medication distribution, as she will likely be providing refills and managing other medical issues. Have not yet received return phone call, so will write initial prescriptions. RTC 6 months - 1 year. Sooner prn. MD Jose Antonio [facility] ECG 12-LEADon 05-07-2024 ECG 12-LEAD IMPRESSION: Sinus rhythm Atrial premature complex LVH with IVCD and secondary repol abnrm Inferior infarct, age indeterminate Electronically Signed On 05-07-2024 10:34:37 EST by Krunal Allen [facility] APTTon 05-06-2024 aPTT Coag (Bld) [Time] 22.1 s Normal 20.0-30.5 [facility] Comment on above: Result Comment: DAPHNE Low COMMENTS: NOTE: The therapeutic time for Heparin anticoagulation, based on Xa activity inhibition, is an APTT of 46-80 seconds. Performed By: #### L [id number], [id number] ####Estimator And Drafter: RADHA SIMMONS ([id number])[facility] ([address] BASIC METABOLIC PANELon Anion gap [Moles/Vol] 9 mmol/L Normal 3-13 [facility] Comment on above: Performed By: #### L AB15 ####Estimator And Drafter: RADHA SIMMONS ([id number])[facility] ([facility] [place] [address] Calcium [Mass/Vol] 8.5 mg/dL Low 8.8-10.0 [facility] Comment on above: Performed By: #### L AB15 ####Estimator And Drafter: RADHA SIMMONS ([id number])[facility] ([facility])[address] [place] [address] Chloride [Moles/Vol] 103 mmol/L Normal 98-107 [facility] Comment on above: Performed By: #### L AB15 ####Estimator And Drafter: RADHA SIMMONS ([id number])[facility] ([facility] [place] [address] CO2 [Moles/Vol] 22 mmol/L Normal 22-29 [facility] Comment on above: Performed By: #### L AB15 ####Estimator And Drafter: RADHA SIMMONS ([id number])[facility] ([facility])[address] [place] [address] Creatinine [Mass/Vol] 0.96 mg/dL Normal 0.72-1.25 [facility] Comment on above: Performed By: #### L AB15 ####Estimator And Drafter: RADHA SIMMONS ([id number])[facility] ([facility])[address] [place] [address] GLOMERULAR FILTRATION RATE ML/MIN/1.73 SQ M.PREDICTED >90.0 Normal >60.0 [facility] Comment on above: Result Comment: Calc ulation based on the Chronic Kidney Disease Epidemiology Collaboration (CKD-EPI) equation refit without adjustment for race Performed By: #### L AB15 ####Estimator And Drafter: RADHA SIMMONS ([id number])[facility] ([facility])[address] [place] [address] Glucose [Mass/Vol] 107 mg/dL High 74-100 [facility] Comment on above: Performed By: #### L AB15 ####Estimator And Drafter: RADHA SIMMONS ([id number])[facility] ([facility])[address] [place] [address] Potassium [Moles/Vol] 3.9 mmol/L Normal 3.5-5.1 [facility] Comment on above: Result Comment: TC Significant interference from hemolysis. Result integrity compromised. Interpret with caution. Performed By: #### L AB15 ####Estimator And Drafter: RADHA SIMMONS ([id number])[facility])[address] [place] [address] Sodium [Moles/Vol] 134 mmol/L Low 136-145 [facility] Comment on above: Performed By: #### L AB15 ####Estimator And Drafter: RADHA SIMMONS ([id number])[address] Urea nitrogen [Mass/Vol] 31 mg/dL High 9-23 [facility] Comment on above: Performed By: #### L AB15 ####Estimator And Drafter: RADHA SIMMONS ([id number])[address] Basic metabolic 1998 panelon 05-06-2024 Anion gap [Moles/Vol] 9 mmol/L 3 - 13 mmol/L [facility] Calcium [Mass/Vol] 8.5 mg/dL Low 8.8 - 10. 0 mg/dL [facility] Chloride [Moles/Vol] 103 mmol/L 98 - 10 7 mmol/L [facility] CO2 [Moles/Vol] 22 mmol/L 22 - 29 mmol/L [facility] Creatinine [Mass/Vol] 0.96 mg/dL 0.72 - 1.25 mg/dL [facility] GFR/1.73 sq M.predicted (S/P/Bld) [Vol rate/Area] - PINF [facility] Comment on above: Calculation based on the Chronic Kidney Disease Epidemiology Collaboration (CKD-EPI) equation refit without adjustment for race Glucose [Mass/Vol] 107 mg/dL High 74 - 100 mg/dL [facility] Interpretation and review of laboratory results Abnormal [facility] Potassium [Moles/Vol] 3.9 mmol/L 3.5 - 5.1 mmol/L [facility] Comment on above: TC Significant interference from hemolysis. Result integrity compromised. Interpret with caution. Sodium [Moles/Vol] 134 mmol/L Low 136 - 145 mmol/L [facility] Urea nitrogen [Mass/Vol] 31 mg/dL High 9 - 23 mg/dL [facility] CBC (HEMOGRAM)on 05-06-2024 Erythrocyte distribution width (RBC) [Ratio] 20.8 % High 11.5-15.0 [facility] Comment on above: Performed By: #### L AB294 ####Estimator And Drafter: RADHA SIMMONS ([id number])[facility])[address] [place] [address] Hematocrit (Bld) [Volume fraction] 30.1 % Low 40.0-52.0 [facility] Comment on above: Performed By: #### L AB294 ####Estimator And Drafter: RADHA SIMMONS ([id number])[facility])[address] [place] [address] Hemoglobin (Bld) [Mass/Vol] 9.0 g/dL Low 13.0-18.0 [facility] Comment on above: Performed By: #### L AB294 ####Estimator And Drafter: RADHA SIMMONS ([id number])[facility])[address] [place] [address] MCH (RBC) [Entitic mass] 22.5 pg Low 26.0-34.0 [facility] Comment on above: Performed By: #### L AB294 ####Estimator And Drafter: RADHA SIMMONS ([id number])[address] MCHC 29.9 % Low 30.5-36.0 [facility] Comment on above: Performed By: #### L AB294 ####Estimator And Drafter: RADHA SIMMONS ([id number])[address] MCV (RBC) [Entitic vol] 75.3 fL Low 77.0-99.0 [facility] Comment on above: Performed By: #### L AB294 ####Estimator And Drafter: RADHA [id number])[facility] ([facility])[address] [place] [address] Platelet mean volume (Bld) [Entitic vol] 10.2 fL Normal 9.0-12.7 [facility] Comment on above: Performed By: #### L AB294 ####Estimator And Drafter: RADHA SIMMONS ([id number])[facility])[address] [place] [address] Platelets (Bld) [#/Vol] 243 10*3/uL Normal 140-440 [facility] Comment on above: Performed By: #### L AB294 ####Estimator And Drafter: RADHA SIMMONS ([id number])[facility] ([facility])[address] [place] [address] RBC (Bld) [#/Vol] 4.00 10*6/uL Low 4.40-5.90 [facility] Comment on above: Performed By: #### L AB294 ####Estimator And Drafter: RADHA SIMMONS ([id number])[facility] ([facility])[address] [place] [address] WBC (Bld) [#/Vol] 11.1 10*3/uL High 3.6-10.7 [facility] Comment on above: Performed By: #### L AB294 ####Estimator And Drafter: RADHA SIMMONS ([id number])[facility])[address] [place] [address] CBC panel Auto (Bld)Ordered By: Krupa Rodriguez on 05-06-2024 Erythrocyte distribution width (RBC) [Ratio] 20.8 % High 11.5 - 15.0 % [facility] Hematocrit (Bld) [Volume fraction] 30.1 % Low 40.0 - 52.0 % [facility] Hemoglobin (Bld) [Mass/Vol] 9 g/dL Low 13.0 - 18.0 g/dL [facility] Interpretation and review of laboratory results Abnormal [facility] MCH (RBC) [Entitic mass] 22.5 pg Low 26.0 - 34.0 pg [facility] MCHC (RBC) [Mass/Vol] 29.9 % Low 30.5 - 36.0 % [facility] B2Brev MCV (RBC) [Entitic vol] 75.3 fL Low 77.0 - 99.0 fL [facility] B2Brev Platelet mean volume (Bld) [Entitic vol] 10.2 fL 9.0 - 12.7 fL [facility] B2Brev Platelets (Bld) [#/Vol] 243 10*3/uL 140 - 440 10*3/uL [facility] B2Brev RBC (Bld) [#/Vol] 4 10*6/uL Low 4.40 - 5.90 10*6/uL [facility] B2Brev WBC (Bld) [#/Vol] 11.1 10*3/uL High 3.6 - 10.7 10*3/uL [facility] B2Brev [facility] Consulton 05-06-2024 Consult CONSULT NOTE: STROKE SERVICE Pt. Name: Krunal Leos Age: 58 y.o. : 1965 Room: Room/bed info not found Code Status: Prior Date of Admission: 05/06/2024 Date of Service: 05/06/2024 Current Hospital Day: Hospital Day: 1 Requesting/Referring Physican: Mey Loya, STAFF [employer] DEFENSE OFFICER - * Reason for Consultation: R MCA stenosis Assessment & Plan: 58-year-old with recurrent cerebrovascular episodes referable to right MCA stenosis. Unfortunately he has continued to have episodes despite therapy with aspirin, Eliquis and clopidogrel. He is on high potency statin. He reports his hemoglobin A1c is around 7 and has been working to try to get better diabetic control. He is relatively compliant with CPAP machine and is actively addressing his sleep apnea with his new diagnosis of idiopathic pulmonary fibrosis. Thus he is working hard at aggressive risk factor management. It would be important to check P2 Y12 level to assure he is a Plavix responder. If he is not this would help assess why he has continued to have events despite triple therapy. Even if he is a responder, it would be reasonable to consider changing to Brilinta to see if he would respond to that considering his high-grade MCA stenosis. If he fails Brilinta in addition to aspirin and Eliquis, he would be a candidate for consideration of MCA stent placement. I did discuss with the patient and his that there is a risk of stroke with stent placement but also that he has a risk for stroke because of his high-grade stenosis without further intervention. They have elected to see what happens with the Brilinta and will have further conversations with Dr. Culp regarding stent placement. PLAN: 1. Obtain P2 Y12 study 2. [place] Brilinta 90 mg twice daily x 30 days then 60 mg twice daily 3. Discontinue Plavix 4. Continue high potency statin 5. Discussed aggressive management of diabetes, weight reduction and management of obstructive sleep apnea as risk factor modification to try to reduce further stroke History of Present Illness: Krunal Leos is a 58 y.o. male with a history of hypertension, hyperlipidemia, obesity, diabetes, obstructive sleep apnea, atrial fibrillation on anticoagulation and recent diagnosis of idiopathic pulmonary fibrosis, who underwent several angiography today for further evaluation of potential intervention for stroke symptoms. In review his first event occurred in September 2023 when he was at a parade. He does endorse that he was probably dehydrated. He had the sudden onset of left facial and left arm weakness. EMS was at the parade and responded to him quickly. Unclear what his blood pressure was but symptoms resolved within 15 minutes. He was on aspirin 81 mg and Eliquis 5 mg twice daily with that event. He did not have any further medication changes but was recommended that he try to stay well-hydrated. October 2023: Had a recurrent episode of left face and arm weakness lasting 10 to 15 minutes. Was hospitalized at [place] and had Plavix added at that time. About 2 weeks later he had another episode and symptoms resolved in about 5 to 7 minutes. He thinks at that time fenofibrate was added to his regiment. He had been on high potency statin prior. Unclear if he had MRI imaging or not; family thinks he may have that demonstrated stroke. January 2024: Recurrent episode similar to his past ones of left face and arm weakness again lasting about 10 minutes. Symptoms resolved. He was again hospitalized at [facility]. No medication changes were made. April 2024: Recurrent episode of left face and arm weakness. Again lasting about 10 to 15 minutes. He is he was not managing his blood pressure well until the first event in September but he has been under better control since. He has lost 20 pounds since last year but does not truly follow a diabetic diet. He has tried GP L1 medications for weight loss and diabetic control but had nausea with them. He has obstructive sleep apnea and endorses being about 75% compliant with his CPAP machine. He was recently diagnosed with idiopathic pulmonary fibrosis and states that he needs to have a CPAP machine settings are altered because of that. He endorses he wears home oxygen nightly. Imaging personally reviewed: MRI September/2023: Only have access of isolated pictures per Dr. Connolly's note. It demonstrates watershed infarction right MCA distribution. MRA with both right MCA stenosis and mid basilar stenosis. Cerebral angiogram 05/06/2024: Severe right MCA stenosis involving M1. Left vertebral artery occluded at the origin. Basilar artery with multiple areas narrowing but none appeared high-grade. ROS: GENERAL: Pt denies F/C/N/V/D/Constipation. HEENT: Pt denies changes in vision or hearing, epistaxis, sore throat HEART: Pt denies chest pain, palpitations, SOB LUNGS: Dyspnea due to idiopathic pulmonary fibrosis ABDOMEN: Pt denie (more content not included)... Normal [facility] - Coagulationon 0 05-06-2024 PT Coag (Bld) [Time] 10.9 s 9.0 - 1 2.0 s [facility] B2Brev No Panel InformationOrdered By: Ana Maria Mancini on 05-06-2024 Interpretation and review of laboratory results Normal [facility] PRU Test (P2Y12) 211 180 - PINF [facility] Comment on above: >180 - 376 PRU [P2Y1 2 Reaction Units] - No drug present 10-180 PRU [P2Y12 Reaction Units] - Decreased platelet reactivity to P2Y12 inhibitor. [facility] B2Brev No Panel Informationon 05-06 Interpretation and review of laboratory results Normal [facility] Nursing Noteon 05-06-2024 Nursing Note Phase 2 care complet ed. Iv removed and dc instructions provided. Will dc to home with family Right groin site benign and neuro unchanged NIH 0 Normal [facility] Nursing Note Patient arrived from home, Dr. Culp in to speak with the patient regarding DCA with possible carotid stenting, consent obtained. Patient was placed supine on exam table prepped and draped in sterile fashion. Telemetry monitors placed, sedation provided by INTERACTIVE MEDIA MARKETING DIRECTOR. Patient tolerated procedure well. Transfer to ICU. Normal [facility] PROTHROMBIN TIMEon INR Coag (PPP) [Relative time] 1.0 {INR} Normal 0.9-1.1 [facility] Comment on above: Result Comment: Luciano mmended Anticoagulant Therapy: SEE BELOW ----- INR of 2.0 - 3.0 : - Prophylaxis of Venous Thrombosis (high-risk surgery) - Treatment of Venous Thrombosis - Treatment of Pulmonary Embolism (Includes tissue heart valves, Acute Myocardial Infarction to prevent systemic embolism, Valvular Heart Disease, and Atrial Fibrillation) ----- INR of 2.5 - 3.5 : - Mechanical Prosthetic Valves (high risk) - If oral anticoagulant therapy is used to prevent Myocardial Infarction Performed By: #### Vic [id number], [id number] ####Estimator And Drafter: RADHA SIMMONS ([id number])[facility] ([facility])[address] [place] [address] PT Coag (PPP) [Time] 10.9 s Normal 9.0-12.0 [facility] Comment on above: Performed By: #### Vic [id number], [id number] ####Estimator And Drafter: RADHA SIMMONS ([phone])[facility] ([facility])[address] [place] [address] PRU TEST (P2Y12)on PRU TEST (P2Y12) 211 Normal >=180 [facility] Comment on above: Result Comment: >180 - 376 PRU [P2Y12 Reaction Units] - No drug present 10-180 PRU [P2Y12 Reaction Units] - Decreased platelet reactivity to P2Y12 inhibitor. Performed By: #### L [id number] ####Estimator And Drafter: RADHA SIMMONS ([phone])[facility] ([facility])[address] [place] [address] PT Coag (Bld) [Time]on 05-06 INR Coag (PPP) [Relative time] 1 {INR} 0.9 - 1.1 [facility] Comment on above: Recommended Anticoag ulant Therapy: SEE BELOW ----- INR of 2.0 - 3.0 : - Prophylaxis of Venous Thrombosis (high-risk surgery) - Treatment of Venous Thrombosis - Treatment of Pulmonary Embolism (Includes tissue heart valves, Acute Myocardial Infarction to prevent systemic embolism, Valvular Heart Disease, and Atrial Fibrillation) ----- INR of 2.5 - 3.5 : - Mechanical Prosthetic Valves (high risk) - If oral anticoagulant therapy is used to prevent Myocardial Infarction RFA Cerebral arteries Bilate ral Views W contrast IAon 05-06-2024 Impression: 1. Severe stenosis of the middle-segment of the right MCA, estimated at 99% by WASID criteria. 2. 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 3. Mild bilateral common and internal carotid atherosclerotic disease without significant stenosis. 4. Diffuse atherosclerotic disease and described above. Vascular neurology consulted following procedure. Full consult documented in chart. Reviewed findings with patient and his who are in understanding. No carotid stent to be placed today. Will try to optimize medical management (switch to Brilinta from Plavix, resume eliquis, check P2Y12, weight loss, DM, management, KIANNA management, etc). He is at high risk for continued strokes. Will most likely need to pursue stenting should he fail these changes. Patient and family expressed understanding and agreement with the plan. Will fu 6 months for surveillance. Report Dictated on Electronically Signed By: Oziel Culp MD Electronically Signed Date/Time: 05/06/2024 3:33 PM [facility] RADIOLOGY SYSTEM Patient Name[facility]RUNAL [facility] 1965 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 He has had multiple events despite treatment with Eliquis (for atrial fibrillation), ASA and clopidogrel. The most recent event was 2 weeks ago, and he follows in [place]. CTA was concerning for left ICA severe stenosis and he presented for conventional angiography to evaluate and treat carotid stenosis if present and further evaluate right MCA stenosis. Consent: The benefits, alternatives, and risks to the procedure including but not limited to stroke, bleed, infection, dissection, pseudoaneurysm, OR, renal failure, radiation injury, hair loss, contrast allergy and reactions, vasospasm, vessel rupture, cardiogenic shock, deep venous thrombosis, pulmonary embolism, other unforeseen complications and were discussed with the patient. All questions were answered. The patient agreed to proceed. Room time: 2 hours Sedation: Conscious sedation. An independent observer provided moderate procedural sedation for 60 minutes. 2mg versed and 100mcg fentanyl were administered throughout the procedure. Technique/findings: The patient was brought to the angiography suite and placed in supine position. Patient's groins were prepped and draped in standard fashion. The right common femoral artery was localized and after local anesthesia with 1% lidocaine, accessed with a 4F micropuncture kit with a single-wall puncture. The 4F dilator was exchanged for a 5 Fijian short sheath over a guidewire. The short sheath was connected to heparinized saline flush. Fluoroscopy was performed over the right femoral artery in the right anterior oblique projection. The point of entry of the sheath is at the femoral bifurcation. The femoral artery is well visualized and normal. Through the short sheath, a 100 cm vert. angle Terumo diagnostic catheter was advanced over a 0.018 Terumo guidewire. The diagnostic catheter was advanced into the right common carotid artery under fluoroscopic guidance. Right common carotid artery: Intracranial view Under fluoroscopic guidance, the catheter was advanced into the right common carotid artery. Biplane angiography was performed over the cranium. The intracranial view of the right common carotid artery in the AP and lateral projections demonstrates severe narrowing of the middle segment of his right MCA. There is anterograde flow, but the narrowing measures 99% by WASID criteria. There is otherwise a normal right middle cerebral artery, a normal right SALINA, and a normal right external carotid artery and its branches. The A-comm artery is visualized. The right posterior communicating artery visualized and robust. There is no significant stenosis or dissection. There is no aneurysm or arteriovenous malformation. Right common carotid artery: Cervical view Under fluoroscopic guidance the catheter was advanced into the right common carotid artery. Biplane angiography was performed of the cervical region. The cervical view of the right common carotid artery in the AP and lateral projections demonstrates mild right common carotid artery irregularity and narrowing. The stenosis measures ~ 15% by NASCET criteria. There is otherwise a normal right internal carotid artery and a normal right external carotid artery and its branches. There is no significant stenosis or dissection. There is no aneurysm or arteriovenous malformation. Left Subclavian artery: Cervical view Under fluoroscopic guidance the catheter was advanced into the left subclavian artery near the origin of the left vertebral artery and angiography was performed over the cervical region. 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 The left vertebral artery is occluded just beyond the origin. The left thyro-cervical trunk is well visualized and is normal. The left costo-cervical trunk is well visualized and is normal. The left internal mammary artery is well visualized and is normal. There is no significant stenosis or dissection. There is no aneurysm or arteriovenous malformation. Left common carotid artery: Intracranial view Under fluoroscopic guidance, the diagnostic catheter was advanced into the left common carotid artery and biplane angiography was performed over the cranium. The intracranial views of the left common carotid artery in the AP and lateral projections demonstrate a normal left internal carotid artery. The left midd (more content not included)... [facility] RAD[facility]OLOGY [facility] Oziel Culp MD - 05/06/2024 Patient Name: KRUNAL LEOS : 1965 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 He has had multiple events despite treatment with Eliquis (for atrial fibrillation), ASA and clopidogrel. The most recent event was 2 weeks ago, and he follows in [place]. CTA was concerning for left ICA severe stenosis and he presented for conventional angiography to evaluate and treat carotid stenosis if present and further evaluate right MCA stenosis. Consent: The benefits, alternatives, and risks to the procedure including but not limited to stroke, bleed, infection, dissection, pseudoaneurysm, OR, renal failure, radiation injury, hair loss, contrast allergy and reactions, vasospasm, vessel rupture, cardiogenic shock, deep venous thrombosis, pulmonary embolism, other unforeseen complications and were discussed with the patient. All questions were answered. The patient agreed to proceed. Room time: 2 hours Sedation: Conscious sedation. An independent observer provided moderate procedural sedation for 60 minutes. 2mg versed and 100mcg fentanyl were administered throughout the procedure. Technique/findings: The patient was brought to the angiography suite and placed in supine position. Patient's groins were prepped and draped in standard fashion. The right common femoral artery was localized and after local anesthesia with 1% lidocaine, accessed with a 4F micropuncture kit with a single-wall puncture. The 4F dilator was exchanged for a 5 Fijian short sheath over a guidewire. The short sheath was connected to heparinized saline flush. Fluoroscopy was performed over the right femoral artery in the right anterior oblique projection. The point of entry of the sheath is at the femoral bifurcation. The femoral artery is well visualized and normal. Through the short sheath, a 100 cm vert. angle Terumo diagnostic catheter was advanced over a 0.018 Terumo guidewire. The diagnostic catheter was advanced into the right common carotid artery under fluoroscopic guidance. Right common carotid artery: Intracranial view Under fluoroscopic guidance, the catheter was advanced into the right common carotid artery. Biplane angiography was performed over the cranium. The intracranial view of the right common carotid artery in the AP and lateral projections demonstrates severe narrowing of the middle segment of his right MCA. There is anterograde flow, but the narrowing measures 99% by WASID criteria. There is otherwise a normal right middle cerebral artery, a normal right SALINA, and a normal right external carotid artery and its branches. The A-comm artery is visualized. The right posterior communicating artery visualized and robust. There is no significant stenosis or dissection. There is no aneurysm or arteriovenous malformation. Right common carotid artery: Cervical view Under fluoroscopic guidance the catheter was advanced into the right common carotid artery. Biplane angiography was performed of the cervical region. The cervical view of the right common carotid artery in the AP and lateral projections demonstrates mild right common carotid artery irregularity and narrowing. The stenosis measures ~ 15% by NASCET criteria. There is otherwise a normal right internal carotid artery and a normal right external carotid artery and its branches. There is no significant stenosis or dissection. There is no aneurysm or arteriovenous malformation. Left Subclavian artery: Cervical view Under fluoroscopic guidance the catheter was advanced into the left subclavian artery near the origin of the left vertebral artery and angiography was performed over the cervical region. 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 The left vertebral artery is occluded just beyond the origin. The left thyro-cervical trunk is well visualized and is normal. The left costo-cervical trunk is well visualized and is normal. The left internal mammary artery is well visualized and is normal. There is no significant stenosis or dissection. There is no aneurysm or arteriovenous malformation. Left common carotid artery: Intracranial view Under fluoroscopic guidance, the diagnostic catheter was advanced into the left common carotid artery and biplane angiography was performed over the cranium. The intracranial views of the left common carotid artery in the AP and late (more content not included)... [facility] Radiology Study observation (narrative) [facility] alth RFA Cerebral arteries Bilate ral Views W contrast IAOrdered By: Oziel Culp on 05-06-2024 [facility] Work Phone: aPTT Coag (Bld) [Time]on aPTT Coag (PPP) [Time] 22.1 s 20.0 - 30.5 s [facility] NOTE: The therapeuti c time for Heparin anticoagulation, based on Xa activity inhibition, is an APTT of 46-80 seconds. [facility] Absolute lymphocyte countOrd ered By: Rito Lundberg on 05-05-2024 Lymphocytes Auto (Unsp spec) [#/Vol] 1.51 10*3/uL 0.83-4.51 [facility] Automated lymphocyte count a s percentage of total leukocytesOrdered By: Rito Lundberg on 05-05-2024 Lymphocytes/100 WBC Auto (Unsp spec) 11.3 % Low 19-41 [facility] Basophil percentageOrdered B y: Rito Lundberg on 05-05-2024 Basophils/100 WBC (Bld) 0.4 % 0-1 [facility] Blood manual differential co mment interpretation (narrative result)Ordered By: Rito Lundberg on 05-05-2024 Manual differential comment Cedrick (Bld) [Interp] SCANNED [facility] CBC W/Diff, Automatedon OVALOCYTE 2+ Normal [facility] Comment on above: Performed By: #### L 503.6030, L503.0105, L100.0100, L503.6550 ####[facility] [address] [place], [address] Anisocytosis Ql (Bld) 2+ Normal [facility] Comment on above: Performed By: #### L 503.6030, L503.0105, L100.0100, L503.6550 ####[facility] [address] [place], [address] MICROCYTIC 1+ Normal [facility] Comment on above: Performed By: #### L 503.6030, L503.0105, L100.0100, L503.6550 ####[facility] [address] [place], [address] PLT EST ADEQUATE Normal ADEQ [facility] Comment on above: Performed By: #### L 503.6030, L503.0105, L100.0100, L503.6550 ####[facility] [address] [place], [address] SMEAR COMMENT SCANNED Normal [facility] Comment on above: Performed By: #### L 503.6030, L503.0105, L100.0100, L503.6550 ####[facility] [address] [place], [address] Eosinophil percentageOrdered By: Rito Lundberg on 05-05-2024 Eosinophils/100 WBC (Bld) 2.1 % 0-5 [facility] Erythrocyte distribution wid th ratioOrdered By: Rito Lundberg on 05-05-2024 Erythrocyte distribution width (RBC) [Ratio] 21.0 % High 11.6-14.6 [facility] Erythrocyte distribution wid th standard deviationOrdered By: Rito Lundberg on 05-05-2024 Erythrocyte distribution width (RBC) [Ratio] 56.7 fl High 35.1-43.9 [facility] Ferritinon 05-05-2024 Ferritin [Mass/Vol] 134 ng/mL Normal 26-388 [facility] Comment on above: Performed By: #### L 503.6030, L503.0105, L100.0100, L503.6550 ####[facility] [address] [place], [address] Hematocrit Auto (Bld) [Volum e fraction]Ordered By: Rito Lundberg on 05-05-2024 Hematocrit (Bld) [Volume fraction] 31.6 % Low 40-54 [facility] Hemoglobin measurementOrdere d By: Rito Lundberg on 05-05-2024 Hemoglobin (Bld) [Mass/Vol] 9.3 g/dL Low 13.0-16.5 [facility] Immature granulocytes/100 WB C Auto (Bld)Ordered By: [facility] on 05-05-2024 Immature granulocytes/100 WBC (Bld) 0.600 % 0.0-0.9 [facility] Iron measurement (mass/mass) Ordered By: Rito Lundberg on 05-05-2024 Iron (Unsp spec) [Mass/Mass] 74 ug/dL 65-175 [facility] Iron+Iron Binding Capacityon 05-05-2024 Iron [Mass/Vol] 74 ug/dL Normal 65-175 [facility] Comment on above: Performed By: #### L 503.6030, L503.0105, L100.0100, L503.6550 ####[facility] [address] [place], [address] IRON SATURATION 22.0 Normal 15.0-55.0 [facility] Comment on above: Performed By: #### L 503.6030, L503.0105, L100.0100, L503.6550 ####[facility] [address] [place], [address] TIBC 337 ug/dL Normal 250-450 [facility] Comment on above: Performed By: #### L 503.6030, L503.0105, L100.0100, L503.6550 ####[facility] [address] [place], [address] MCV (mean corpuscular volume ) determinationOrdered By: Rito Lundberg on 05-05-2024 MCV (RBC) [Entitic vol] 76.5 fL Low 80-94 [facility] Mean corpuscular hemoglobin (MCH) determinationOrdered By: Rito Lundberg on 05-05-2024 MCH (RBC) [Entitic mass] 22.5 pg Low 27.0-32.0 [facility] Monocyte percentageOrdered B y: Rito Lundberg on 05-05-2024 Monocytes/100 WBC (Bld) 8.1 % 0-10 [facility] Neutrophil percentageOrdered By: Rito Lundberg on 05-05-2024 Neutrophils/100 WBC (Bld) 77.5 % High 47-70 [facility] No Panel InformationOrdered By: Rito Lundberg on 05-05-2024 2+ [facility] Nursing Noteon 05-05-2024 Nursing Note Report given to MARIO marsh, neuro assessment completed along with groin site check. Normal [facility] Oncology Visit Reporton Oncology Visit Report Normal [facility] Ovalocyte detectionOrdered B y: Rito Lundberg on 05-05-2024 Ovalocytes LM Ql (Bld) 2+ [facility] Platelet countOrdered By: Chanell Lundberg on 05-05-2024 Platelets (Bld) [#/Vol] 303 10*3/uL 150-450 [facility] Platelet estimateOrdered By: Rito Lundberg on 05-05-2024 Platelets LM Ql (Bld) ADEQUATE ADEQ [facility] RBC Auto (Bld) [#/Vol]Ordere d By: Rito Lundberg on 05-05-2024 RBC (Bld) [#/Vol] 4.13 10*6/uL Low 4.6-6.2 [facility] Serum or plasma iron saturat ion measurement (mass fraction)Ordered By: Rito Lundberg on 05-05-2024 Iron saturation [Mass fraction] 22.0 % 15.0-55.0 [facility] Vitamin B12on 05-05-2024 Cobalamin (Vitamin B12) [Mass/Vol] 1259 pg/mL High 211-911 [facility] Comment on above: Performed By: #### L 503.6030, L503.0105, L100.0100, L503.6550 ####[facility] [address] [place], [address] Vitamin B12 measurementOrder ed By: Rito Lundberg on 05-05-2024 Cobalamin (Vitamin B12) [Mass/Vol] 1259 pg/mL High 211-911 [facility] White blood cell (WBC) count Ordered By: Rito Lundberg on 05-05-2024 WBC (Bld) [#/Vol] 13.3 10*3/uL High 4.4-11.0 [facility] Pulmonary Visit Reporton Pulmonary Visit Report Normal [facility] Cardiology Visit Reporton Cardiology Visit Report Normal [facility] MR/BMS.BVSon 04-30-2024 MR/BMS.BVS Normal [facility] Office Visit Reporton 2024 Office Visit Report Normal [facility] 36on 04-27-2024 36 Spoke with patient t o go over additional instructions for surgery. Patient informed to discontinue eliquis 5 days prior to procedure but to continue taking aspirin and Plavix. Patient is diabetic but does not use a GLP-1 or metformin. I instructed the patient to reach out to his PCP to get instructions on how to take insulin and other anti-diabetic medications leading up to surgery. Patient verbalized understanding. Patient states he is aware of NPO policy to avoid food, orange juice, juice with pulp, and dairy products after midnight. Patient denies any allergies to iv contrast dye, iodine, or shellfish. Normal [facility] Office Visiton 04-27-2024 Follow-up visit [id number] Krunal Leos 1965 M Date Provider Department Center 04/27/2024 [id number], SUZY [facility] None No family history on file Level of Service:36183 AL OFFICE/OUTPATIENT ESTABLISHED MOD MDM 30 MIN Reason for Visit and Comments: Follow-up [557403] - discuss carotid duplex 04/06/23 [facility] Progress Noteon 04-27-2024 Progress Note Vascular Surgery Off ice Visit Chief Complaint Patient presents with Follow-up discuss carotid duplex 04/06/23 HISTORY OF PRESENT ILLNESS: The patient is a 58 y.o. male who returns for follow-up of carotid artery disease. He was previously seen in the hospital while admitted for stroke-like symptoms including left arm weakness and facial weakness. At that time he was found to have right MCA stenosis (severe), left vertebral artery occlusion, and basilar artery stenosis. Carotid duplex at that time noted < 50% stenosis on the right and 50-59% stenosis on the left. He was ultimately discharged home on Eliquis and 81 mg ASA. His CTA was repeated in January and this noted an 80% stenosis at the origin of the left internal carotid artery and 20% stenosis at the origin of the right internal carotid artery. He is currently scheduled to undergo cerebral angiography with Dr. Culp on 05/06/2024. He presented to the ED this past weekend with recurrence of his symptoms with facial droop and left arm weakness, despite compliance with his medications. This has since resolved. Imaging was reviewed and is available in PACS. It appears similar to the January study on my review. He denies right sided symptoms. His family is present for today's visit and notes that he has recently been diagnosed with severe pulmonary disease and has been given a timeline of approximately 5 years of life remaining. Past Medical History: CKD, HTN DM, hypothyroid Obesity, BPH, Afib, Lymphoma s/p chemotherapy and neck radiation. Past Surgical History: VATS for empyema, Percutaneous nephrostolithotomy Current Medications: Prior to Admission medications Medication Sig Start Date End Date Taking? Authorizing Provider amLODIPine (Norvasc) 5 MG tablet Take 5 mg by mouth daily. 10/01/23 Historical Provider, apixaban (Eliquis) 5 MG tablet Take 1 tablet (5 mg) by mouth 2 times daily. 10/05/23 Harmeet Stallworth MD aspirin 325 MG tablet Take 325 mg by mouth in the morning. Historical Provider, aspirin 81 MG chewable tablet 81 mg. 10/01/23 Historical Provider, atorvastatin (Lipitor) 80 MG tablet Take 1 tablet (80 mg) by mouth Nightly. 10/05/23 11/04/23 Harmeet Stallworth MD betamethasone, augmented, (Diprolene) 0.05 % lotion APPLY TO RASH ON THE TRUNK OR SCALP 1-2 TIMES DAILY NEEDED 08/13/23 Historical Provider, busPIRone (Buspar) 10 MG tablet Take 1 tablet (10 mg) by mouth 3 times daily. 10/05/23 11/04/23 Harmeet Stallworth MD clopidogrel (Plavix) 75 MG tablet Take 75 mg by mouth daily. 12/31/23 Historical Provider, Continuous Glucose Sensor (Dexcom G6 Sensor) mis Dexcom G6 Sensor Mis, USE DIRECTED FOR CONTINUOUS BLOOD GLUCOSE MONITORING, CHANGE SENSOR EVERY 10 DAYS 10/01/23 Historical Provider, dapagliflozin (Farxiga) 5 MG tablet Take 1 tablet (5 mg) by mouth daily. Do not start before October 06, 2023. 10/06/23 01/06/24 Harmeet Stallworth MD dilTIAZem CD (Cardizem CD) 120 MG 24 hr capsule Take 120 mg by mouth daily. 05/07/23 Historical Provider, doxycycline (Vibramycin) 100 MG capsule Take 100 mg by mouth 2 times daily. 06/10/23 Historical Provider, DULoxetine (Cymbalta) [address] capsule Take 1 capsule (60 mg) by mouth daily. Do not crush or chew. Do not start before October 06, 2023. 10/06/23 01/06/24 Harmeet Stallworth MD ergocalciferol (Vitamin D2) 1.25 MG (81360 UT) capsule Take 1 capsule by mouth 1 (one) time per week. 04/05/23 Historical Provider, fenofibrate (Tricor) 54 MG tablet 10/14/23 Historical Provider, furosemide (Lasix) 40 MG tablet Take 1 tablet (40 mg) by mouth in the morning and 1 tablet (40 mg) in the evening. 10/05/23 01/06/24 Harmeet Stallworth MD glimepiride (Amaryl) 4 MG tablet Take 4 mg by mouth daily. 10/01/23 Historical Provider, glipiZIDE (Glucotrol) 5 MG tablet Take 1 tablet (5 mg) by mouth every morning (before breakfast). Do not start before October 06, 2023. 10/06/23 01/06/24 Harmeet Stallworth MD HYDROcodone-acetaminophen ([place]) 5-325 MG tablet Take 1 tablet by mouth 2-3 times daily as needed for pain 02/14/23 Historical Provider, insulin regular (HumuLIN R,NovoLIN R) 100 UNIT/ML injection Inject 0.2 mL (20 Units) under the skin in the morning and 0.2 mL (20 Units) at noon and 0.2 mL (20 Units) in the evening. Inject with meals. 10/05/23 11/04/23 Harmeet Stallworth MD Jardiance 25 MG 25 mg. 12/10/22 Historical Provider, levothyroxine (Synthroid, Levoxyl) 112 MCG tablet Take 1 tablet (112 mcg) by mouth every morning (before breakfast). Do not start before October 06, 2023. 10/06/23 01/06/24 Harmeet Stallworth MD metFORMIN (Glucophage) 500 MG tablet Take 500 mg by mouth in the morning and 500 mg in the evening. Take with meals. Historical Provider, metoprolol succinate XL (Toprol-XL) 100 MG 24 hr tablet Take 1 tablet (100 mg) by mouth daily. Do not crush or chew. Do not start before October 06, 2023. 10/06/23 01/06/24 Harmeet Stallworth MD pantop (more content not included)... Normal [facility] Vitamin B12on 04-27-2024 Cobalamin (Vitamin B12) [Mass/Vol] 572 pg/mL Normal 211-911 [facility] Comment on above: Performed By: #### L 100.0100, L100.9950, L503.6550, L503.0105, L503.6030 ####[facility] [address] [place], [place], [id number] Absolute lymphocyte countOrd ered By: Cookie Bell on 04-25-2024 Lymphocytes Auto (Unsp spec) [#/Vol] 1.80 10*3/uL 0.83-4.51 [facility] Automated lymphocyte count a s percentage of total leukocytesOrdered By: White on 04-25-2024 Lymphocytes/100 WBC Auto (Unsp spec) 14.4 % Low 19-41 [facility] Basophil percentageOrdered B y: White on 04-25-2024 Basophils/100 WBC (Bld) 0.5 % 0-1 [facility] Bedside Glucoseon 04-25-2024 FINGERSTICK GLU 252 mg/dL High [address] [facility] Comment on above: Result Comment: ANI GEMENT OF PATIENT CARE PER NURSING PROTOCOL Performed By: #### L 501.080 ####[facility] [address] [place], [address] FINGERSTICK GLU 160 mg/dL High [address] [place] [address] Comment on above: Result Comment: ANI GEMENT OF PATIENT CARE PER NURSING PROTOCOL Performed By: #### L 501.080 ####[facility] [address] [place], [address] FINGERSTICK GLU 249 mg/dL High [address] [place] [address] Comment on above: Result Comment: ANI GEMENT OF PATIENT CARE PER NURSING PROTOCOL Performed By: #### L 501.080 ####[facility] [address] [place], [address] Bilirubin, totalOrdered By: White on 04-25-2024 Bilirubin [Mass/Vol] 0.60 mg/dL 0.20-1.00 [facility] Blood manual differential co mment interpretation (narrative result)Ordered By: White on 04-25-2024 Manual differential comment Cedrick (Bld) [Interp] SCANNED [facility] Blood polychromasia detectio n by light microscopyOrdered By: White on 04-25-2024 Polychromasia LM Ql (Bld) RARE [facility] Blood schistocyte detection by light microscopyOrdered By: White on 04-25-2024 Schistocytes LM Ql (Bld) RARE [facility] Brain without Contraston Brain without Contrast Normal [facility] CBC W/Diff, Automatedon 04-02 [employer] CELLS RARE Normal [facility] Comment on above: Performed By: #### L 500.4100, L501.9985, L500.4050, L501.9520, L100.0100 ####[facility] [address] [place], [address] MICROCYTIC 1+ Normal [facility] Comment on above: Performed By: #### L 500.4100, L501.9985, L500.4050, L501.9520, L100.0100 ####[facility] [address] [place], [address] SCHISTOCYTES RARE Normal [facility] Comment on above: Performed By: #### L 500.4100, L501.9985, L500.4050, L501.9520, L100.0100 ####[facility] [address] [place], [address] POLYCHROMASIA RARE Normal [facility] Comment on above: Performed By: #### L 500.4100, L501.9985, L500.4050, L501.9520, L100.0100 ####[facility] [address] [place], [address] SMEAR COMMENT SCANNED Normal [facility] Comment on above: Performed By: #### L 500.4100, L501.9985, L500.4050, L501.9520, L100.0100 ####[facility] [address] [place], [address] Carbon dioxide measurementOr dered By: Cookie Bell on 04-25-2024 CO2 [Moles/Vol] 26.0 mmol/L 21.0-32.0 [facility] Chloride measurementOrdered By: Cookie Bell on 04-25-2024 Chloride [Moles/Vol] 103 mmol/L 98-107 [facility] Comprehensive Metabolic Prof ilon 04-25-2024 Albumin [Mass/Vol] 2.8 g/dL Low 3.2-5.0 [facility] Comment on above: Performed By: #### L 500.4100, L501.9985, L500.4050, L501.9520, L100.0100 ####[facility] [address] [place], [address] Albumin/Globulin [Mass ratio] 0.7 {ratio} Low 0.9-2.4 [facility] Comment on above: Performed By: #### L 500.4100, L501.9985, L500.4050, L501.9520, L100.0100 ####[facility] [address] [place], [address] ALK P 69 U/L Normal 45-117 [facility] Comment on above: Performed By: #### L 500.4100, L501.9985, L500.4050, L501.9520, L100.0100 ####[facility] [address] [place], [address] ALT [Catalytic activity/Vol] 18 U/L Normal 16-61 [facility] Comment on above: Performed By: #### L 500.4100, L501.9985, L500.4050, L501.9520, L100.0100 ####[facility] [address] [place], [address] AST [Catalytic activity/Vol] 13 U/L Low 15-37 [facility] Comment on above: Performed By: #### L 500.4100, L501.9985, L500.4050, L501.9520, L100.0100 ####[facility] [address] [place], [address] Bilirubin [Mass/Vol] 0.60 mg/dL Normal 0.20-1.00 [facility] Comment on above: Result Comment: For patients on eltrombopag therapy, use of Dimension [place] TBIL is not recommended. Performed By: #### L 500.4100, L501.9985, L500.4050, L501.9520, L100.0100 ####[facility] [address] [place], [address] BUN/CRE 26.3 RATIO High 10-20 [facility] Comment on above: Performed By: #### L 500.4100, L501.9985, L500.4050, L501.9520, L100.0100 ####[facility] [address] [place], [address] CA,Total 8.5 mg/dL Normal 8.5-10.1 [facility] Comment on above: Performed By: #### L 500.4100, L501.9985, L500.4050, L501.9520, L100.0100 ####[facility] [address] [place], [address] Chloride [Moles/Vol] 103 mmol/L Normal 98-107 [facility] Comment on above: Performed By: #### L 500.4100, L501.9985, L500.4050, L501.9520, L100.0100 ####[facility] [address] [place], [address] CO2 [Moles/Vol] 26.0 mmol/L Normal 21.0-32.0 [facility] Comment on above: Performed By: #### L 500.4100, L501.9985, L500.4050, L501.9520, L100.0100 ####[facility] [address] [place], [address] Creatinine [Mass/Vol] 1.14 mg/dL Normal 0.70-1.30 [facility] Comment on above: Result Comment: The validity of the calculated GFR GFRAA in patients over70 years has not been determined. Clinical correlation isessential. Performed By: #### L 500.4100, L501.9985, L500.4050, L501.9520, L100.0100 ####[facility] [address] [place], [address] ECRCL 94.76 ml/min Normal [facility] Comment on above: Performed By: #### L 500.4100, L501.9985, L500.4050, L501.9520, L100.0100 ####[facility] [address] [place], [address] EST GFR - AA 84 mL/min Normal >60 [facility] Comment on above: Result Comment: Afri can [place] GFR Calc Performed By: #### L 500.4100, L501.9985, L500.4050, L501.9520, L100.0100 ####[facility] [address] [place], [address] GAP 8 Normal 5-15 [facility] Comment on above: Performed By: #### L 500.4100, L501.9985, L500.4050, L501.9520, L100.0100 ####[facility] [address] [place], [address] GFR/1.73 sq M.predicted among non-blacks MDRD (S/P/Bld) [Vol rate/Area] 70 mL/min/{1.73_m2} Normal >60 [facility] Comment on above: Result Comment: Non- GFR Calc Performed By: #### L 500.4100, L501.9985, L500.4050, L501.9520, L100.0100 ####[facility] [address] [place], [address] Globulin (S) [Mass/Vol] 4.0 g/dL Normal 2.2-4.2 [facility] Comment on above: Performed By: #### L 500.4100, L501.9985, L500.4050, L501.9520, L100.0100 ####[facility] [address] [place], [address] Glucose [Mass/Vol] 172 mg/dL High 74-106 [facility] Comment on above: Result Comment: Fast ing Glucose result greater than or equal to 126 mg/dLsuggests DIABETES MELLITUS per A.D.A. criteria. Performed By: #### L 500.4100, L501.9985, L500.4050, L501.9520, L100.0100 ####[facility] [address] [place], [address] Potassium [Moles/Vol] 3.7 mmol/L Normal 3.5-5.1 [facility] Comment on above: Performed By: #### L 500.4100, L501.9985, L500.4050, L501.9520, L100.0100 ####[facility] [address] [place], [address] Sodium [Moles/Vol] 137 mmol/L Normal 136-145 [facility] Comment on above: Performed By: #### L 500.4100, L501.9985, L500.4050, L501.9520, L100.0100 ####[facility] [address] [place], [address] T PROT 6.8 g/dL Normal 6.4-8.2 [facility] Comment on above: Performed By: #### L 500.4100, L501.9985, L500.4050, L501.9520, L100.0100 ####[facility] [address] [place], [address] Urea nitrogen [Mass/Vol] 30 mg/dL High 7-18 [facility] Comment on above: Performed By: #### L 500.4100, L501.9985, L500.4050, L501.9520, L100.0100 ####[facility] [address] [place], [address] Eosinophil percentageOrdered By: Cookie Bell on 04-25-2024 Eosinophils/100 WBC (Bld) 3.1 % 0-5 [facility] Erythrocyte distribution wid th ratioOrdered By: Cookie Bell on 04-25-2024 Erythrocyte distribution width (RBC) [Ratio] 20.5 % High 11.6-14.6 [facility] Erythrocyte distribution wid th standard deviationOrdered By: Cookie Arabella on 04-25-2024 Erythrocyte distribution width (RBC) [Ratio] 54.5 fl High 35.1-43.9 [facility] Glomerular filtration rate ( GFR) estimationOrdered By: Cookie Bell on 04-25-2024 GFR/1.73 sq M.predicted among non-blacks MDRD (S/P/Bld) [Vol rate/Area] 70 mL/min/{1.73_m2} >60 [facility] Glucose measurementOrdered B y: Cookie Bell on 04-25-2024 Glucose [Mass/Vol] 172 mg/dL High 74-106 [facility] Gl[facility] at [facility] deOrdered By: Ochoa Johnson on 04-25-2024 Glucose [Mass/Vol] 252 mg/dL High 74-106 [facility] Hematocrit Auto (Bld) [Volum e fraction]Ordered By: Cookie Bell on 04-25-2024 Hematocrit (Bld) [Volume fraction] 29.2 % Low 40-54 [facility] Hemoglobin A1con 04-25-2024 HbA1c (Bld) [Mass fraction] 7.3 % High 3.8-5.6 [facility] Comment on above: Result Comment: Norm al < 5.7 % Prediabetic 5.7 - 6.4 % Diabetic >or= 6.5 % Please note range changes. Performed By: #### L 500.2270, L501.9985, L500.4050, L501.9520, L100.0100 ####[facility] [address] [facility] [place], [address] Hemoglobin A1c percentageOrd ered By: Cookie Bell on 04-25-2024 HbA1c (Bld) [Mass fraction] 7.3 % High 3.8-5.6 [facility] Hemoglobin measurementOrdere d By: Cookie Bell on 04-25-2024 Hemoglobin (Bld) [Mass/Vol] 8.6 g/dL Low 13.0-16.5 [facility] High density lipoprotein (HD L) measurementOrdered By: Cookie White on 04-25-2024 High density lipoprotein (HDL) measurement 38 mg/dL Low >40 [facility] Immature granulocytes/100 WB C Auto (Bld)Ordered By: [facility] White on 04-25-2024 Immature granulocytes/100 WBC (Bld) 0.600 % 0.0-0.9 [facility] L501.4020on 04-25-2024 TROPONIN-I HS 76 pg/mL Normal 3.0-78.0 [facility] Comment on above: Order Comment: Comme nts: SPECIMEN #3'TROP' Serial specimen #1, #2 or #3: 3 Result Comment: Plea se Note: New Test Units and Gender Specific Reference Ranges. For more information see Policy Stat Procedure [place] High Sensitivity Troponin (TNIH) and attachments. Performed By: #### L 501.4020 ####[facility] [address] [place], [place], [id number] TROPONIN-I HS 103 pg/mL High 3.0-78.0 [facility] Comment on above: Order Comment: Comme nts: SPECIMEN #2'TROP' Serial specimen #1, #2 or #3: 2 Result Comment: Plea se Note: New Test Units and Gender Specific Reference Ranges. For more information see Policy Stat Procedure [place] High Sensitivity Troponin (TNIH) and attachments. Performed By: #### L 501.4020 ####[facility] [address] [place], [place], [address] Lipid Profileon 04-25-2024 Cholesterol [Mass/Vol] 127 mg/dL Normal 200 [facility] Comment on above: Result Comment: <200 mg/dL Desirable 200-240 mg/dL Borderline >240 mg/dL High Risk Performed By: #### L 500.4100, L501.9985, L500.4050, L501.9520, L100.0100 ####[facility] [address] [place], [address] Cholesterol in HDL [Mass/Vol] 38 mg/dL Low [facility] Comment on above: Result Comment: The drugs N-Acetylcysteine and Metamizole may falselydepress this assay. Reference Range HDL <40 mg/dL Low HDL Cholesterol HDL >or= 60 mg/dL High HDL Cholesterol Performed By: #### L 500.4100, L501.9985, L500.4050, L501.9520, L100.0100 ####[facility] [address] [place], [address] Cholesterol in LDL [Mass/Vol] 46 mg/dL Normal 0-130 [facility] Comment on above: Performed By: #### L 500.4100, L501.9985, L500.4050, L501.9520, L100.0100 ####[facility] [address] [place], [address] Cholesterol in VLDL [Mass/Vol] 43 mg/dL High 5-40 [facility] Comment on above: Performed By: #### L 500.4100, L501.9985, L500.4050, L501.9520, L100.0100 ####[facility] [address] [place], [address] Triglyceride [Mass/Vol] 216 mg/dL High [facility] Comment on above: Result Comment: The drugs N-Acetylcysteine and Metamizole may falselydepress this assay.Serum Triglycerides Reference Interval Normal <150 mg/dL Borderline high 150 - 199 mg/dL High 200 - 499 mg/dL Very High > or = 500 mg/dL Performed By: #### L 500.4100, L501.9985, L500.4050, L501.9520, L100.0100 ####[facility] [address] [place], [address] Low density lipoprotein (LDL ) cholesterol measurementOrdered By: Cookie Bell on 04-25-2024 Low density lipoprotein (LDL) cholesterol measurement 46 mg/dL 0-130 [facility] MCV (mean corpuscular volume ) determinationOrdered By: Cookie Bell on 04-25-2024 MCV (RBC) [Entitic vol] 75.3 fL Low 80-94 [facility] MR/CON.PCM.NEon 04-25-2024 MR/CON.PCM.NE Normal [facility] Mean corpuscular hemoglobin (MCH) determinationOrdered By: Cookie Bell on 04-25-2024 MCH (RBC) [Entitic mass] 22.2 pg Low 27.0-32.0 [facility] Monocyte percentageOrdered B y: Cookie Arabella on 04-25-2024 Monocytes/100 WBC (Bld) 9.8 % 0-10 [facility] Neutrophil percentageOrdered By: Cookie Arabella on 04-25-2024 Neutrophils/100 WBC (Bld) 71.6 % High 47-70 [facility] No Panel InformationOrdered By: Cookie Bell on 04-25-2024 13 U/L Low 15-37 [facility] Platelet countOrdered By: Katey Bell on 04-25-2024 Platelets (Bld) [#/Vol] 300 10*3/uL 150-450 [facility] Potassium measurementOrdered By: Cookie Bell on 04-25-2024 Potassium [Moles/Vol] 3.7 mmol/L 3.5-5.1 [facility] RBC Auto (Bld) [#/Vol]Ordere d By: Cookie Bell on 04-25-2024 RBC (Bld) [#/Vol] 3.88 10*6/uL Low 4.6-6.2 [facility] Serum globulin measurementOr dered By: Cookie Bell on 04-25-2024 Globulin (S) [Mass/Vol] 4.0 g/dL 2.2-4.2 [facility] Serum or plasma alanine briscoe otransferase (ALT) measurementOrdered By: Cookie Bell on 04-25-2024 ALT [Catalytic activity/Vol] 18 U/L 16-61 [facility] Serum or plasma albumin grazyna urement (mass/volume)Ordered By: Cookie Bell on 04-25-2024 Albumin [Mass/Vol] 2.8 g/dL Low 3.2-5.0 [facility] Serum or plasma alkaline benjamin sphatase measurementOrdered By: Cookie Bell on 04-25-2024 ALP [Catalytic activity/Vol] 69 U/L 45-117 [facility] Serum or plasma calcium grazyna urement (mass/volume)Ordered By: Cookie Bell on 04-25-2024 Calcium [Mass/Vol] 8.5 mg/dL 8.5-10.1 [facility] Serum or plasma cholesterol measurement (mass/volume)Ordered By: Cookie Bell on 04-25-2024 Cholesterol [Mass/Vol] 127 mg/dL <200 [facility] Serum or plasma creatinine m easurement (mass/volume)Ordered By: Cookie Bell on 04-25-2024 Creatinine [Mass/Vol] 1.14 mg/dL 0.70-1.30 [facility] Serum or plasma thyroid stim ulating hormone (TSH) measurement (units/volume)Ordered By: Cookie Bell on 04-25-2024 TSH Qn 5.220 uIU/mL High 0.358-3.74 0 [facility] Serum or plasma urea nitroge n measurement (mass/volume)Ordered By: Cookie Bell on 04-25-2024 Urea nitrogen [Mass/Vol] 30 mg/dL High 7-18 [facility] Sodium levelOrdered By: Celyu mn Arabella on 04-25-2024 Sodium [Moles/Vol] 137 mmol/L 136-145 [facility] Target cell detectionOrdered By: Cookie Bell on 04-25-2024 Target cells LM Ql (Bld) RARE [facility] Thyroid Stim Hormone (TSH)on 04-25-2024 TSH 5.220 uIU/mL High 0.358-3.74 0 [facility] Comment on above: Performed By: #### L 500.4210, L501.9985, L500.4050, L501.9520, L100.0100 ####[facility] [address] [place], [place], [id number] Total proteinOrdered By: Aut umn Arabella on 04-25-2024 Protein [Mass/Vol] 6.8 g/dL 6.4-8.2 [facility] Troponin IOrdered By: Cookie Bell on 04-25-2024 Troponin I 76 pg/mL 3.0-78.0 [facility] Very low density lipoprotein (VLDL) cholesterol measurementOrdered By: Cookie Arabella on 04-25-2024 Very low density lipoprotein (VLDL) cholesterol measurement 43 mg/dL High 5-40 [facility] White blood cell (WBC) count Ordered By: Cookie Bell on 04-25-2024 WBC (Bld) [#/Vol] 12.5 10*3/uL High 4.4-11.0 [facility] 12 Lead EKGon 04-24-2024 12 Lead EKG Normal [facility] Abdomen Single View (Portabl e)on 04-24-2024 Abdomen Single View (Portable) Normal [facility] Absolute lymphocyte countOrd ered By: Radha Khan on 04-24-2024 Lymphocytes Auto (Unsp spec) [#/Vol] 2.02 10*3/uL 0.83-4.51 [facility] Activated partial thrombopla stin time (aPTT) in platelet poor plasma by coagulation aOrdered By: Daniel Mcneil on 04-24-2024 aPTT Coag (PPP) [Time] 24.8 s 24.1-36.2 [facility] Automated lymphocyte count a s percentage of total leukocytesOrdered By: Radha Khan on 04-24-2024 Lymphocytes/100 WBC Auto (Unsp spec) 14.4 % Low 19-41 [facility] Basic Metabolic Profile (BMP )on 04-24-2024 BUN/CRE 28.5 RATIO High 10-20 [facility] Comment on above: Order Comment: 'TROP ' Serial specimen #1, #2 or #3: 1 Performed By: #### L 500.2500, L300.3900, L300.4310, L100.0100, L501.4020 ####[facility] [address] [place], [place], [id number] CA,Total 8.9 mg/dL Normal 8.5-10.1 [facility] Comment on above: Order Comment: 'TROP ' Serial specimen #1, #2 or #3: 1 Performed By: #### L 500.2500, L300.3900, L300.4310, L100.0100, L501.4020 ####[facility] [address] [place], [address] Chloride [Moles/Vol] 106 mmol/L Normal 98-107 [facility] Comment on above: Order Comment: 'TROP ' Serial specimen #1, #2 or #3: 1 Performed By: #### L 500.2500, L300.3900, L300.4310, L100.0100, L501.4020 ####[facility] [address] [place], [address] CO2 [Moles/Vol] 27.0 mmol/L Normal 21.0-32.0 [facility] Comment on above: Order Comment: 'TROP ' Serial specimen #1, #2 or #3: 1 Performed By: #### L 500.2500, L300.3900, L300.4310, L100.0100, L501.4020 ####[facility] [address] [place], [address] Creatinine [Mass/Vol] 1.30 mg/dL Normal 0.70-1.30 [facility] Comment on above: Order Comment: 'TROP ' Serial specimen #1, #2 or #3: 1 Result Comment: The validity of the calculated GFR GFRAA in patients over70 years has not been determined. Clinical correlation isessential. Performed By: #### L 500.2500, L300.3900, L300.4310, L100.0100, L501.4020 ####[facility] [address] [place], [address] ECRCL 84.56 ml/min Normal [facility] Comment on above: Order Comment: 'TROP ' Serial specimen #1, #2 or #3: 1 Performed By: #### L 500.2500, L300.3900, L300.4310, L100.0100, L501.4020 ####[facility] [address] [place], [address] EST GFR - AA 72 mL/min Normal >60 [facility] Comment on above: Order Comment: 'TROP ' Serial specimen #1, #2 or #3: 1 Result Comment: Afri can [place] GFR Calc Performed By: #### L 500.2500, L300.3900, L300.4310, L100.0100, L501.4020 ####[facility] [address] [place], [address] GAP 6 Normal 5-15 [facility] Comment on above: Order Comment: 'TROP ' Serial specimen #1, #2 or #3: 1 Performed By: #### L 500.2500, L300.3900, L300.4310, L100.0100, L501.4020 ####[facility] [address] [place], [address] GFR/1.73 sq M.predicted among non-blacks MDRD (S/P/Bld) [Vol rate/Area] 60 mL/min/{1.73_m2} Normal >60 [facility] Comment on above: Order Comment: 'TROP ' Serial specimen #1, #2 or #3: 1 Result Comment: Non- GFR Calc Performed By: #### L 500.2500, L300.3900, L300.4310, L100.0100, L501.4020 ####[facility] [address] [place], [address] Glucose [Mass/Vol] 81 mg/dL Normal 74-106 [facility] Comment on above: Order Comment: 'TROP ' Serial specimen #1, #2 or #3: 1 Performed By: #### L 500.2500, L300.3900, L300.4310, L100.0100, L501.4020 ####[facility] [address] [place], [address] Potassium [Moles/Vol] 4.2 mmol/L Normal 3.5-5.1 [facility] Comment on above: Order Comment: 'TROP ' Serial specimen #1, #2 or #3: 1 Performed By: #### L 500.2500, L300.3900, L300.4310, L100.0100, L501.4020 ####[facility] [address] [place], [address] Sodium [Moles/Vol] 139 mmol/L Normal 136-145 [facility] Comment on above: Order Comment: 'TROP ' Serial specimen #1, #2 or #3: 1 Performed By: #### L 500.2500, L300.3900, L300.4310, L100.0100, L501.4020 ####[facility] [address] [place], [address] Urea nitrogen [Mass/Vol] 37 mg/dL High 7-18 [facility] [facility] Comment on above: Order Comment: 'TROP ' Serial specimen #1, #2 or #3: 1 Performed By: #### L 500.2500, L300.3900, L300.4310, L100.0100, L501.4020 ####[facility] [address] [place], [address] Basophil percentageOrdered B y: Radha Khan on 04-24-2024 Basophils/100 WBC (Bld) 0.4 % 0-1 [facility] CBC W/Diff, Automatedon 04-02 Anisocytosis Ql (Bld) 1+ Normal [facility] Comment on above: Performed By: #### L 100.0100, L100.9950, L503.6550, L503.0105, L503.6030 ####[facility] [address] [place], [address] HYPOCHROMASIA 1+ Normal [facility] Comment on above: Performed By: #### L 100.0100, L100.9950, L503.6550, L503.0105, L503.6030 ####[facility] [address] [place], [address] MICROCYTIC 1+ Normal [facility] Comment on above: Performed By: #### L 100.0100, L100.9950, L503.6550, L503.0105, L503.6030 ####[facility] [address] [place], [address] OVALOCYTE 1+ Normal [facility] Comment on above: Performed By: #### L 100.0100, L100.9950, L503.6550, L503.0105, L503.6030 ####[facility] [address] [place], [address] PLT EST ADEQUATE Normal ADEQ [facility] Comment on above: Performed By: #### L 100.0100, L100.9950, L503.6550, L503.0105, L503.6030 ####[facility] [address] [place], [address] RED CELL MORPH N CHROM Normal NORM C C [facility] Comment on above: Performed By: #### L 100.0100, L100.9950, L503.6550, L503.0105, L503.6030 ####[facility] [address] [place], [address] Anisocytosis Ql (Bld) 1+ Normal [facility] Comment on above: Performed By: #### L 500.2500, L300.3900, L300.4310, L100.0100, L501.4020 ####[facility] [address] [place], [address] HYPOCHROMASIA 1+ Normal [facility] Comment on above: Performed By: #### L 500.2500, L300.3900, L300.4310, L100.0100, L501.4020 ####[facility] [address] [place], [address] MICROCYTIC 1+ Normal [facility] Comment on above: Performed By: #### L 500.2500, L300.3900, L300.4310, L100.0100, L501.4020 ####[facility] [address] [place], [address] OVALOCYTE 1+ Normal [facility] Comment on above: Performed By: #### L 500.2500, L300.3900, L300.4310, L100.0100, L501.4020 ####[facility] [address] [place], [address] PLT EST ADEQUATE Normal ADEQ [facility] Comment on above: Performed By: #### L 500.2500, L300.3900, L300.4310, L100.0100, L501.4020 ####[facility] [address] [place], [address] RED CELL MORPH N CHROM Normal NORM C C [facility] Comment on above: Performed By: #### L 500.2500, L300.3900, L300.4310, L100.0100, L501.4020 ####[facility] [address] [place], [address] Chest 1 Viewon 04-24-2024 Chest 1 View Normal [facility] Emergency Department Summary on 04-24-2024 Emergency Department Summary Normal [facility] Eosinophil percentageOrdered By: Radha Khan on 04-24-2024 Eosinophils/100 WBC (Bld) 2.6 % 0-5 [facility] Erythrocyte distribution wid th ratioOrdered By: Radha Khan on 04-24-2024 Erythrocyte distribution width (RBC) [Ratio] 20.5 % High 11.6-14.6 [facility] Erythrocyte distribution wid th standard deviationOrdered By: Radha Khan on 04-24-2024 Erythrocyte distribution width (RBC) [Ratio] 56.2 fl High 35.1-43.9 [facility] Erythrocyte morphology asses smentOrdered By: Daniel Mcneil on 04-24-2024 RBC morphology finding Nom (Bld) N CHROM NORMAL NORM C&C [facility] Erythrocyte morphology asses smentOrdered By: Radha Khan on 04-24-2024 RBC morphology finding Nom (Bld) N CHROM NORMAL NORM C&C [facility] Ferritinon 04-24-2024 Ferritin [Mass/Vol] 102 ng/mL Normal 26-388 [facility] Comment on above: Performed By: #### L 100.0100, L100.9950, L503.6550, L503.0105, L503.6030 ####[facility] [address] [place], [place], [id number] H AND P Exam - Hospitaliston 04-24-2024 H&P Exam - Hospitalist Normal [facility] Hematocrit Auto (Bld) [Volum e fraction]Ordered By: Radha Khan on 04-24-2024 Hematocrit (Bld) [Volume fraction] 33.0 % Low 40-54 [facility] Hemoglobin measurementOrdere d By: Radha Khan on 04-24-2024 Hemoglobin (Bld) [Mass/Vol] 9.0 g/dL Low 13.0-16.5 [facility] Hypochromatic red blood cell detectionOrdered By: Daniel Mcneil on 04-24-2024 Hypochromia Ql (Bld) 1+ [facility] Hypochromatic red blood cell detectionOrdered By: Radha Khan on 04-24-2024 Hypochromia Ql (Bld) 1+ [facility] Immature granulocytes/100 WB C Auto (Bld)Ordered By: Radha Khan on 04-24-2024 Immature granulocytes/100 WBC (Bld) 0.700 % 0.0-0.9 [facility] Iron measurement (mass/mass) Ordered By: Radha Khan on 04-24-2024 Iron (Unsp spec) [Mass/Mass] 64 ug/dL Low 65-175 [facility] Iron+Iron Binding Capacityon 04-24-2024 Iron [Mass/Vol] 64 ug/dL Low 65-175 [facility] Comment on above: Performed By: #### L 100.0100, L100.9950, L503.6550, L503.0105, L503.6030 ####[facility] [address] [place], [address] IRON SATURATION 22.8 Normal 15.0-55.0 [facility] Comment on above: Performed By: #### L 100.0100, L100.9950, L503.6550, L503.0105, L503.6030 ####[facility] [address] [place], [address] TIBC 281 ug/dL Normal 250-450 [facility] Comment on above: Performed By: #### L 100.0100, L100.9950, L503.6550, L503.0105, L503.6030 ####[facility] [address] [place], [address] L501.4020on 04-24-2024 TROPONIN-I HS 106 pg/mL High 3.0-78.0 [facility] Comment on above: Order Comment: 'TROP ' Serial specimen #1, #2 or #3: 1 Result Comment: Kodi monterroso Note: New Test Units and Gender Specific Reference Ranges. For more information see Policy Stat Procedure [place] High Sensitivity Troponin (TNIH) and attachments. Performed By: #### L 501.4020 ####[facility] [address] [place], [address] TROPONIN-I HS 190 pg/mL Invalid Interpretation Code 3.0-78.0 [facility] Comment on above: Order Comment: 'TROP ' Serial specimen #1, #2 or #3: 1 Result Comment: Samuelt ical Result(s) Called at: 16:51:09 04/24/2024 by: SHERYL. Results read back by Stan RAMIREZ Please Note: New Test Units and Gender Specific Reference Ranges. For more information see Policy Stat Procedure [place] High Sensitivity Troponin (TNIH) and attachments. Performed By: #### L 500.2500, L300.3900, L300.4310, L100.0100, L501.4020 ####[facility] [address] [place], [place], [id number] MCV (mean corpuscular volume ) determinationOrdered By: Radha Khan on 04-24-2024 MCV (RBC) [Entitic vol] 77.6 fL Low 80-94 [facility] Magnesiumon 04-24-2024 Magnesium [Mass/Vol] 2.1 mg/dL Normal 1.6-2.6 [facility] Comment on above: Order Comment: Comme nts: may add to ED labs Performed By: #### L 501.5200 ####[facility] [address] [place], [place], [id number] Magnesium measurementOrdered By: Cookie Bell on 04-24-2024 Magnesium [Mass/Vol] 2.1 mg/dL 1.6-2.6 [facility] Mean corpuscular hemoglobin (MCH) determinationOrdered By: Radha Khan on 04-24-2024 MCH (RBC) [Entitic mass] 21.2 pg Low 27.0-32.0 [facility] Monocyte percentageOrdered B y: Radha Khan on 04-24-2024 Monocytes/100 WBC (Bld) 10.2 % High 0-10 [facility] Neutrophil percentageOrdered By: Radha Khan on 04-24-2024 Neutrophils/100 WBC (Bld) 71.7 % High 47-70 [facility] No Panel InformationOrdered By: Daniel Mcneil on 04-24-2024 1+ [facility] No Panel InformationOrdered By: Radha Khan on 04-24-2024+ [facility] Ovalocyte detectionOrdered B y: Daniel Mcneil on 04-24-2024 Ovalocytes LM Ql (Bld) 1+ [facility] Ovalocyte detectionOrdered B y: Radha Khan on 04-24-2024 Ovalocytes LM Ql (Bld) 1+ [facility] Partial Thromboplast Timeon 04-24-2024 aPTT Coag (Bld) [Time] 24.8 s Normal 24.1-36.2 [facility] Comment on above: Performed By: #### L 500.2500, L300.3900, L300.4310, L100.0100, L501.4020 ####[facility] [address] [place], [address] Platelet countOrdered By: Armen Khan on 04-24-2024 Platelets (Bld) [#/Vol] 361 10*3/uL 150-450 [facility] Platelet estimateOrdered By: Daniel Mcneil on 04-24-2024 Platelets [facility]Bld) [facility] Platelet estimateOrdered By: Radha Khan on 04-24-2024 Platelets LM Ql (Bld) ADEQUATE [facility] Prothrombin Time w/INRon INR Coag (PPP) [Relative time] 1.1 {INR} Normal [facility] Comment on above: Performed By: #### L 500.2500, L300.3900, L300.4310, L100.0100, L501.4020 ####[facility] [address] [place], [address] PT Coag (PPP) [Time] 14.4 s Normal 11.7-14.9 [facility] Comment on above: Performed By: #### L 500.2500, L300.3900, L300.4310, L100.0100, L501.4020 ####[facility] [address] [place], [address] Prothrombin timeOrdered By: Daniel Mcneil on 04-24-2024 PT Coag (PPP) [Time] 14.4 s 11.7-14.9 [facility] RBC Auto (Bld) [#/Vol]Ordere d By: Radha Khan on 04-24-2024 RBC (Bld) [#/Vol] 4.25 10*6/uL Low 4.6-6.2 [facility] Retic Panelon 04-24-2024 IM RET FRACTION 18.00 High 3.00-15.90 [facility] Comment on above: Performed By: #### L 100.0100, L100.9950, L503.6550, L503.0105, L503.6030 ####[facility] [address] [place], [address] RET-HE 26.3 pg Low 30-35 [facility] Comment on above: Performed By: #### L 100.0100, L100.9950, L503.6550, L503.0105, L503.6030 ####[facility] [address] [place], [place], [id number] Retic Count 1.99 High 0.5-1.5 [facility] Comment on above: Performed By: #### L 100.0100, L100.9950, L503.6550, L503.0105, L503.6030 ####[facility] [address] [place], [address] Reticulocyte hemoglobin equi valent (RET-He) measurementOrdered By: Radha Khan on 04-24-2024 Hemoglobin (Reticulocytes) [Entitic mass] 26.3 pg Low 30-35 [facility] Reticulocytes Auto (Bld) [#/ Vol]Ordered By: Radha Khan on 04-24-2024 Reticulocytes/100 RBC (Bld) 1.99 % High 0.5-1.5 [facility] STROKE Brain/Head without Co nton 04-24-2024 STROKE Brain/Head without Cont Normal [facility] STROKE CTA Head AND Neck W/C onon 04-24-2024 STROKE CTA Head AND Neck W/Con Normal [facility] Serum or plasma iron saturat ion measurement (mass fraction)Ordered By: Radha Khan on 04-24-2024 Iron saturation [Mass fraction] 22.8 % 15.0-55.0 [facility] Vitamin B12 measurementOrder ed By: Radha Khan on 04-24-2024 Cobalamin (Vitamin B12) [Mass/Vol] 572 pg/mL 211-911 [facility] White blood cell (WBC) count Ordered By: Radha Khan on 04-24-2024 WBC (Bld) [#/Vol] 14.1 10*3/uL High 4.4-11.0 [facility] 36on 04-22-2024 36 LVM to let patient k now he is scheduled for surgery and to call back to go over presurgical instructions Normal [facility] 36 Call ref# [id number] 000. No Prior authorization needed for inpatient 24 hour observation. Normal [facility] Pulmonary Visit Reporton Pulmonary Visit Report Normal [facility] Culture, Blood (WB)on 2024 CUB Blood cultures x2, f rom two different sites No growth in 5 days. Normal [facility] Comment on above: Performed By: #### M 200.1000, M100.636 ####[facility] [address] [place], [place], [id number] Endocrinology Visit Reporton 04-16-2024 Endocrinology Visit Report Normal [facility] No Panel Informationon 04-16 7.7 % High 4.2-6.3 [facility] Absolute lymphocyte countOrd ered By: Cuco Soler on 04-15-2024 Lymphocytes Auto (Unsp spec) [#/Vol] 0.77 10*3/uL Low 0.83-4.51 [facility] Automated lymphocyte count a s percentage of total leukocytesOrdered By: Cuco Soler on 04-15-2024 Lymphocytes/100 WBC Auto (Unsp spec) 7.0 % Low 19-41 [facility] Basic Metabolic Profile (BMP )on 04-15-2024 BUN/CRE 29.8 RATIO High 10-20 [facility] Comment on above: Performed By: #### L 100.0100, L500.2500 ####[facility] [address] [place], [place], [id number] CA,Total 9.4 mg/dL Normal 8.5-10.1 [facility] Comment on above: Performed By: #### L 100.0100, L500.2500 ####[facility] [address] [place], [address] Chloride [Moles/Vol] 103 mmol/L Normal 98-107 [facility] Comment on above: Performed By: #### L 100.0100, L500.2500 ####[facility] [address] [place], [address] CO2 [Moles/Vol] 24.0 mmol/L Normal 21.0-32.0 [facility] Comment on above: Performed By: #### L 100.0100, L500.2500 ####[facility] [address] [place], [address] Creatinine [Mass/Vol] 1.14 mg/dL Normal 0.70-1.30 [facility] Comment on above: Result Comment: The validity of the calculated GFR GFRAA in patients over70 years has not been determined. Clinical correlation isessential. Performed By: #### L 100.0100, L500.2500 ####[facility] [address] [place], [address] ECRCL 94.72 ml/min Normal [facility] Comment on above: Performed By: #### L 100.0100, L500.2500 ####[facility] [address] [place], [address] EST GFR - AA 84 mL/min Normal >60 [facility] Comment on above: Result Comment: Afri can [place] GFR Calc Performed By: #### L 100.0100, L500.2500 ####[facility] [address] [place], [address] GAP 8 Normal 5-15 [facility] Comment on above: Performed By: #### L 100.0100, L500.2500 ####[facility] [address] [place], [address] GFR/1.73 sq M.predicted among non-blacks MDRD (S/P/Bld) [Vol rate/Area] 70 mL/min/{1.73_m2} Normal >60 [facility] Comment on above: Result Comment: Non- GFR Calc Performed By: #### L 100.0100, L500.2500 ####[facility] [address] [place], [address] Glucose [Mass/Vol] 154 mg/dL High 74-106 [facility] [place] Comment on above: Result Comment: Fast ing Glucose result greater than or equal to 126 mg/dLsuggests DIABETES MELLITUS per A.D.A. criteria. Performed By: #### L 100.0100, L500.2500 ####[facility] [address] [place], [address] Potassium [Moles/Vol] 4.4 mmol/L Normal 3.5-5.1 [facility] Comment on above: Performed By: #### L 100.0100, L500.2500 ####[facility] [address] [place], [address] Sodium [Moles/Vol] 135 mmol/L Low 136-145 [facility] Comment on above: Performed By: #### L 100.0100, L500.2500 ####[facility] [address] [place], [address] Urea nitrogen [Mass/Vol] 34 mg/dL High 7-18 [facility] Comment on above: Performed By: #### L 100.0100, L500.2500 ####[facility] [address] [place], [address] Basophil percentageOrdered B y: Cuco Soler on 04-15-2024 Basophils/100 WBC (Bld) 0.1 % 0-1 [facility] CBC W/Diff, Automatedon 04-01 Absolute Lymph 0.77 X10 3/uL Low 0.83-4.51 [facility] Comment on above: Performed By: #### L 100.0100, L500.2500 ####[facility] [address] [place], [address] Absolute Neut 9.9 X10 3/uL High 2.0-7.7 [facility] Comment on above: Performed By: #### L 100.0100, L500.2500 ####[facility] [address] [place], [address] Basophils/100 WBC (Bld) 0.1 % Normal 0-1 [facility] Comment on above: Performed By: #### L 100.0100, L500.2500 ####[facility] [address] [place], [address] Eosinophils/100 WBC (Bld) 0.1 % Normal 0-5 [facility] Comment on above: Performed By: #### L 100.0100, L500.2500 ####[facility] [address] [place], [address] Erythrocyte distribution width (RBC) [Ratio] 19.6 % High 11.6-14.6 [facility] Comment on above: Performed By: #### L 100.0100, L500.2500 ####[facility] [address] [place], [address] Hematocrit (Bld) [Volume fraction] 28.9 % Low 40-54 [facility] Comment on above: Performed By: #### L 100.0100, L500.2500 ####[facility] [address] [place], [address] Hemoglobin (Bld) [Mass/Vol] 8.5 g/dL Low 13.0-16.5 [facility] Comment on above: Performed By: #### L 100.0100, L500.2500 ####[facility] [address] [place], [address] IG% 0.600 Normal 0.0-0.9 [facility] Comment on above: Result Comment: IG% - Immature Granulocytes (promyelocytes, myelocytes andmetamyelocytes) > 1% indicates that a LEFT SHIFT is Present. Performed By: #### L 100.0100, L500.2500 ####[facility] [address] [place], [address] Lymphocytes/100 WBC (Bld) 7.0 % Low 19-41 [facility] Comment on above: Performed By: #### L 100.0100, L500.2500 ####[facility] [address] [place], [address] MCH (RBC) [Entitic mass] 21.8 pg Low 27.0-32.0 [facility] Comment on above: Performed By: #### L 100.0100, L500.2500 ####[facility] [address] [place], [address] MCHC (RBC) [Mass/Vol] 29.4 g/dL Low 32-36 [facility] Comment on above: Performed By: #### L 100.0100, L500.2500 ####[facility] [address] [place], [address] MCV (RBC) [Entitic vol] 74.1 fL Low 80-94 [facility] Comment on above: Performed By: #### L 100.0100, L500.2500 ####[facility] [address] [place], [address] Monocytes/100 WBC (Bld) 2.4 % Normal 0-10 [facility] Comment on above: Performed By: #### L 100.0100, L500.2500 ####[facility] [address] [place], [address] Neutrophils/100 WBC (Bld) 89.8 % High 47-70 [facility] Comment on above: Performed By: #### L 100.0100, L500.2500 ####[facility] [address] [place], [address] Nucleated RBC (Bld) [#/Vol] 0 10*3/uL Normal 0-5 [facility] Comment on above: Performed By: #### L 100.0100, L500.2500 ####[facility] [address] [place], [address] Platelet mean volume (Bld) [Entitic vol] 9.8 fL Normal 6.2-12.0 [facility] Comment on above: Performed By: #### L 100.0100, L500.2500 ####[facility] [address] [place], [address] Platelets (Bld) [#/Vol] 341 10*3/uL Normal 150-450 [facility] Comment on above: Performed By: #### L 100.0100, L500.2500 ####[facility] [address] [place], [address] RBC (Bld) [#/Vol] 3.90 10*6/uL Low 4.6-6.2 [facility] Comment on above: Performed By: #### L 100.0100, L500.2500 ####[facility] [address] [place], [address] RDW SD 52.3 fl High 35.1-43.9 [facility] Comment on above: Performed By: #### L 100.0100, L500.2500 ####[facility] [address] [place], [address] WBC (Bld) [#/Vol] 11.0 10*3/uL Normal 4.4-11.0 [facility] Comment on above: Performed By: #### L 100.0100, L500.2500 ####[facility] [address] [place], [address] Carbon dioxide measurementOr dered By: Cuco Soler on 04-15-2024 CO2 [Moles/Vol] 24.0 mmol/L 21.0-32.0 [facility] Chloride measurementOrdered By: Cuco Soler on 04-15-2024 Chloride [Moles/Vol] 103 mmol/L 98-107 [facility] Discharge Instructionon 04-01 Discharge Instruction Normal [facility] Eosinophil percentageOrdered By: Cuco Soler on 04-15-2024 Eosinophils/100 WBC (Bld) 0.1 % 0-5 [facility] Erythrocyte distribution wid th ratioOrdered By: Cuco Soler on 04-15-2024 Erythrocyte distribution width (RBC) [Ratio] 19.6 % High 11.6-14.6 [facility] Erythrocyte distribution wid th standard deviationOrdered By: Cuco Soler on 04-15-2024 Erythrocyte distribution width (RBC) [Ratio] 52.3 fl High 35.1-43.9 [facility] Glomerular filtration rate ( GFR) estimationOrdered By: Cuco Soler on 04-15-2024 GFR/1.73 sq M.predicted among non-blacks MDRD (S/P/Bld) [Vol rate/Area] 70 mL/min/{1.73_m2} >60 [facility] Glucose measurementOrdered B y: Cuco Soler on 04-15-2024 Glucose [Mass/Vol] 154 mg/dL High 74-106 [facility] Hematocrit Auto (Bld) [Volum e fraction]Ordered By: Cuco Soler on 04-15-2024 Hematocrit (Bld) [Volume fraction] 28.9 % Low 40-54 [facility] Hemoglobin measurementOrdere d By: Cuco Soler on 04-15-2024 Hemoglobin (Bld) [Mass/Vol] 8.5 g/dL Low 13.0-16.5 [facility] Immature granulocytes/100 WB C Auto (Bld)Ordered By: Cuco Soler on 04-15-2024 Immature granulocytes/100 WBC (Bld) 0.600 % 0.0-0.9 [facility] MCV (mean corpuscular volume ) determinationOrdered By: Cuco Soler on 04-15-2024 MCV (RBC) [Entitic vol] 74.1 fL Low 80-94 [facility] Mean corpuscular hemoglobin (MCH) determinationOrdered By: Cuco Soler on 04-15-2024 MCH (RBC) [Entitic mass] 21.8 pg Low 27.0-32.0 [facility] Monocyte percentageOrdered B y: Cuco Soler on 04-15-2024 Monocytes/100 WBC (Bld) 2.4 % 0-10 [facility] Neutrophil percentageOrdered By: Cuco Soler on 04-15-2024 Neutrophils/100 WBC (Bld) 89.8 % High 47-70 [facility] Platelet countOrdered By: Joselito Soler on 04-15-2024 Platelets (Bld) [#/Vol] 341 10*3/uL 150-450 [facility] Potassium measurementOrdered By: Cuco Soler on 04-15-2024 Potassium [Moles/Vol] 4.4 mmol/L 3.5-5.1 [facility] RBC Auto (Bld) [#/Vol]Ordere d By: Cuco Soler on 04-15-2024 RBC (Bld) [#/Vol] 3.90 10*6/uL Low 4.6-6.2 [facility] Serum or plasma calcium grazyna urement (mass/volume)Ordered By: Cuco Soler on 04-15-2024 Calcium [Mass/Vol] 9.4 mg/dL 8.5-10.1 [facility] Serum or plasma creatinine m easurement (mass/volume)Ordered By: Cuco Soler on 04-15-2024 Creatinine [Mass/Vol] 1.14 mg/dL 0.70-1.30 [facility] Serum or plasma urea nitroge n measurement (mass/volume)Ordered By: Cuco Soler on 04-15-2024 Urea nitrogen [Mass/Vol] 34 mg/dL High 7-18 [facility] Sodium levelOrdered By: Caitie Soler on 04-15-2024 Sodium [Moles/Vol] 135 mmol/L Low 136-145 [facility] White blood cell (WBC) count Ordered By: Cuco Soler on 04-15-2024 WBC (Bld) [#/Vol] 11.0 10*3/uL 4.4-11.0 [facility] GPC IDon 04-14-2024 GPC ID Normal [facility] Comment on above: Performed By: #### M 200.1000, M100.636 ####[facility] [address] [place], [address] Basic Metabolic Profile (BMP )on 04-14-2024 BUN/CRE 20.1 RATIO High 10-20 [facility] Comment on above: Performed By: #### L 100.0100, L501.5200, L500.2500, L500.3400, L501.2300 ####[facility] [address] [place], [address] CA,Total 9.0 mg/dL Normal 8.5-10.1 [facility] Comment on above: Performed By: #### L 100.0100, L501.5200, L500.2500, L500.3400, L501.2300 ####[facility] [address] [place], [address] Chloride [Moles/Vol] 100 mmol/L Normal 98-107 [facility] Comment on above: Performed By: #### L 100.0100, L501.5200, L500.2500, L500.3400, L501.2300 ####[facility] [address] [place], [address] CO2 [Moles/Vol] 26.0 mmol/L Normal 21.0-32.0 [facility] Comment on above: Performed By: #### L 100.0100, L501.5200, L500.2500, L500.3400, L501.2300 ####[facility] [address] [place], [address] Creatinine [Mass/Vol] 1.49 mg/dL High 0.70-1.30 [facility] Comment on above: Result Comment: The validity of the calculated GFR GFRAA in patients over70 years has not been determined. Clinical correlation isessential. Performed By: #### L 100.0100, L501.5200, L500.2500, L500.3400, L501.2300 ####[facility] [address] [place], [address] ECRCL 73.51 ml/min Normal [facility] Comment on above: Performed By: #### L 100.0100, L501.5200, L500.2500, L500.3400, L501.2300 ####[facility] [address] [place], [address] EST GFR - AA 62 mL/min Normal >60 [facility] Comment on above: Result Comment: Afri can Guamanian GFR Calc Performed By: #### L 100.0100, L501.5200, L500.2500, L500.3400, L501.2300 ####[facility] [address] [place], [address] GAP 6 Normal 5-15 [facility] Comment on above: Performed By: #### L 100.0100, L501.5200, L500.2500, L500.3400, L501.2300 ####[facility] [address] [place], [address] GFR/1.73 sq M.predicted among non-blacks MDRD (S/P/Bld) [Vol rate/Area] 51 mL/min/{1.73_m2} Low >60 [facility] Comment on above: Result Comment: Non- GFR Calc Performed By: #### L 100.0100, L501.5200, L500.2500, L500.3400, L501.2300 ####[facility] [address] [place], [address] Glucose [Mass/Vol] 272 mg/dL High 74-106 [facility] Comment on above: Result Comment: Gluc ose result greater than or equal to 200 mg/dLsuggests DIABETES MELLITUS per A.D.A. criteria. Performed By: #### L 100.0100, L501.5200, L500.2500, L500.3400, L501.2300 ####[facility] [address] [place], [address] Potassium [Moles/Vol] 4.0 mmol/L Normal 3.5-5.1 [facility] Comment on above: Performed By: #### L 100.0100, L501.5200, L500.2500, L500.3400, L501.2300 ####[facility] [address] [place], [address] Sodium [Moles/Vol] 132 mmol/L Low 136-145 [facility] Comment on above: Performed By: #### L 100.0100, L501.5200, L500.2500, L500.3400, L501.2300 ####[facility] [address] [place], [address] Urea nitrogen [Mass/Vol] 30 mg/dL High 7-18 [facility] Comment on above: Performed By: #### L 100.0100, L501.5200, L500.2500, L500.3400, L501.2300 ####[facility] [address] [place], [address] Bedside Glucoseon 04-14-2024 FINGERSTICK GLU 259 mg/dL High 74-106 [facility] Comment on above: Result Comment: ANI OMARENT OF PATIENT CARE PER NURSING PROTOCOL Performed By: #### L 501.080 ####[facility] [address] [place], [address] Bilirubin directOrdered By: Cuco Soler on 04-14-2024 Bilirubin.direct [Mass/Vol] 0.20 mg/dL 0.00-0.30 [facility] Bilirubin, totalOrdered By: Cuco Soler on 04-14-2024 Bilirubin [Mass/Vol] 0.80 mg/dL 0.20-1.00 [facility] CBC W/Diff, Automatedon - Absolute Lymph 0.42 X10 3/uL Low 0.83-4.51 [facility] Comment on above: Performed By: #### L 100.0100, L501.5200, L500.2500, L500.3400, L501.2300 ####[facility] [address] [place], [address] Absolute Neut 7.9 X10 3/uL High 2.0-7.7 [facility] Comment on above: Performed By: #### L 100.0100, L501.5200, L500.2500, L500.3400, L501.2300 ####[facility] [address] [place], [address] Basophils/100 WBC (Bld) 0.2 % Normal 0-1 [facility] Comment on above: Performed By: #### L 100.0100, L501.5200, L500.2500, L500.3400, L501.2300 ####[facility] [address] [place], [address] Eosinophils/100 WBC (Bld) 0.0 % Normal 0-5 [facility] Comment on above: Performed By: #### L 100.0100, L501.5200, L500.2500, L500.3400, L501.2300 ####[facility] [address] [place], [address] Erythrocyte distribution width (RBC) [Ratio] 19.9 % High 11.6-14.6 [facility] Comment on above: Performed By: #### L 100.0100, L501.5200, L500.2500, L500.3400, L501.2300 ####[facility] [address] [place], [address] Hematocrit (Bld) [Volume fraction] 28.7 % Low 40-54 [facility] Comment on above: Performed By: #### L 100.0100, L501.5200, L500.2500, L500.3400, L501.2300 ####[facility] [address] [place], [address] Hemoglobin (Bld) [Mass/Vol] 8.4 g/dL Low 13.0-16.5 [facility] Comment on above: Performed By: #### L 100.0100, L501.5200, L500.2500, L500.3400, L501.2300 ####[facility] [address] [place], [address] IG% 0.500 Normal 0.0-0.9 [facility] Comment on above: Result Comment: IG% - Immature Granulocytes (promyelocytes, myelocytes andmetamyelocytes) > 1% indicates that a LEFT SHIFT is Present. Performed By: #### L 100.0100, L501.5200, L500.2500, L500.3400, L501.2300 ####[facility] [address] [place], [address] Lymphocytes/100 WBC (Bld) 4.9 % Low 19-41 [facility] Comment on above: Performed By: #### L 100.0100, L501.5200, L500.2500, L500.3400, L501.2300 ####[facility] [address] [place], [address] MCH (RBC) [Entitic mass] 21.8 pg Low 27.0-32.0 [facility] Comment on above: Performed By: #### L 100.0100, L501.5200, L500.2500, L500.3400, L501.2300 ####[facility] [address] [place], [address] MCHC (RBC) [Mass/Vol] 29.3 g/dL Low 32-36 [facility] Comment on above: Performed By: #### L 100.0100, L501.5200, L500.2500, L500.3400, L501.2300 ####[facility] [address] [place], [address] MCV (RBC) [Entitic vol] 74.4 fL Low 80-94 [facility] Comment on above: Performed By: #### L 100.0100, L501.5200, L500.2500, L500.3400, L501.2300 ####[facility] [address] [place], [address] Monocytes/100 WBC (Bld) 1.9 % Normal 0-10 [facility] Comment on above: Performed By: #### L 100.0100, L501.5200, L500.2500, L500.3400, L501.2300 ####[facility] [address] [place], [address] Neutrophils/100 WBC (Bld) 92.5 % High 47-70 [facility] Comment on above: Performed By: #### L 100.0100, L501.5200, L500.2500, L500.3400, L501.2300 ####[facility] [address] [place], [address] Nucleated RBC (Bld) [#/Vol] 0.2 10*3/uL Normal 0-5 [facility] Comment on above: Performed By: #### L 100.0100, L501.5200, L500.2500, L500.3400, L501.2300 ####[facility] [address] [place], [address] Platelet mean volume (Bld) [Entitic vol] 10.0 fL Normal 6.2-12.0 [facility] Comment on above: Performed By: #### L 100.0100, L501.5200, L500.2500, L500.3400, L501.2300 ####[facility] [address] [place], [address] Platelets (Bld) [#/Vol] 322 10*3/uL Normal 150-450 [facility] Comment on above: Performed By: #### L 100.0100, L501.5200, L500.2500, L500.3400, L501.2300 ####[facility] [address] [place], [address] RBC (Bld) [#/Vol] 3.86 10*6/uL Low 4.6-6.2 [facility] Comment on above: Performed By: #### L 100.0100, L501.5200, L500.2500, L500.3400, L501.2300 ####[facility] [address] [place], [address] RDW SD 53.1 fl High 35.1-43.9 [facility] Comment on above: Performed By: #### L 100.0100, L501.5200, L500.2500, L500.3400, L501.2300 ####[facility] [address] [place], [address] WBC (Bld) [#/Vol] 8.6 10*3/uL Normal 4.4-11.0 [facility] Comment on above: Performed By: #### L 100.0100, L501.5200, L500.2500, L500.3400, L501.2300 ####[facility] [address] [place], [address] Consultation - Intensiviston 04-14-2024 Consultation - Nanny Caregiver Normal [facility] Echo, Limited Studyon 2024 Echo, Limited Study Normal [facility] Gl[facility] measurement at [facility] deOrdered By: Cuco Soler on 04-14-2024 Glucose [Mass/Vol] 259 mg/dL High 74-106 [facility] Liver Profileon 04-14-2024 Albumin [Mass/Vol] 2.7 g/dL Low 3.2-5.0 [facility] Comment on above: Performed By: #### L 100.0100, L501.5200, L500.2500, L500.3400, L501.2300 ####[facility] [address] [place], [address] ALK P 77 U/L Normal 45-117 [facility] Comment on above: Performed By: #### L 100.0100, L501.5200, L500.2500, L500.3400, L501.2300 ####[facility] [address] [place], [address] ALT [Catalytic activity/Vol] 19 U/L Normal 16-61 [facility] Comment on above: Performed By: #### L 100.0100, L501.5200, L500.2500, L500.3400, L501.2300 ####[facility] [address] [place], [address] AST [Catalytic activity/Vol] 16 U/L Normal 15-37 [facility] Comment on above: Performed By: #### L 100.0100, L501.5200, L500.2500, L500.3400, L501.2300 ####[facility] [address] [place], [address] Bilirubin [Mass/Vol] 0.80 mg/dL Normal 0.20-1.00 [facility] Comment on above: Result Comment: For patients on eltrombopag therapy, use of Dimension [place] TBIL is not recommended. Performed By: #### L 100.0100, L501.5200, L500.2500, L500.3400, L501.2300 ####[facility] [address] [place], [address] Bilirubin.direct [Mass/Vol] 0.20 mg/dL Normal 0.00-0.30 [facility] Comment on above: Performed By: #### L 100.0100, L501.5200, L500.2500, L500.3400, L501.2300 ####[facility] [address] [place], [address] Globulin (S) [Mass/Vol] 5.6 g/dL High 2.2-4.2 [facility] Comment on above: Performed By: #### L 100.0100, L501.5200, L500.2500, L500.3400, L501.2300 ####[facility] [address] [place], [address] T PROT 8.3 g/dL High 6.4-8.2 [facility] Comment on above: Performed By: #### L 100.0100, L501.5200, L500.2500, L500.3400, L501.2300 ####[facility] [address] [place], [address] M8200.1000on 04-14-2024 M8200.1000 Normal Reference Ran ge = Negative MRSA DNA Nose Ql FLORES+probe GeneXpert Instrument, PCR method MRSA PCR MRSA NEGATIVE Normal [facility] Comment on above: Performed By: #### M 8200.1000, M300.4600 ####[facility] [address] [place], [address] Magnesiumon 04-14-2024 Magnesium [Mass/Vol] 2.5 mg/dL Normal 1.6-2.6 [facility] Comment on above: Performed By: #### L 100.0100, L501.5200, L500.2500, L500.3400, L501.2300 ####[facility] [address] [place], [address] Magnesium measurementOrdered By: Cuco Soler on 04-14-2024 Magnesium [Mass/Vol] 2.5 mg/dL 1.6-2.6 [facility] Nasal methicillin resistant Staphylococcus aureus (MRSA) DNA detection by PCROrdered By: Cuco Soler on 04-14-2024 MRSA DNA FLORES+probe Ql (Nose) [facility] No Panel InformationOrdered By: Cucogemini Soler on 04-14-2024 16 U/L 15-37 [facility] Phosphoruson 04-14-2024 Phosphate [Mass/Vol] 4.4 mg/dL Normal 2.5-4.9 [facility] Comment on above: Performed By: #### L 100.0100, L501.5200, L500.2500, L500.3400, L501.2300 ####[facility] [address] [place], [place], [id number] Procalcitoninon 04-14-2024 Procalcitonin 0.18 ng/mL High 0.00-0.09 [facility] Comment on above: Result Comment: A pr ocalcitonin (PCT) level above 2.0 ng/mL on the first day of ICU admission is associated with a high risk for progression to severe sepsis and/or septic shock. A PCT level below 0.5 ng/mL on the first day of ICU admission is associated with a low risk for progression to severe and/or septic shock. Note: Concentrations <0.5 ng/mL do not exclude an infection on account of localized infections (without systemic signs) which can be associated with such low concentrations, or a systemic infection in its initial stages (<6 hours). Furthermore, increased procalcitonin can occur without infection. PCT concentrations between 0.5 and 2.0 ng/mL should be interpreted taking into account the patient's history. It is recommended to retest PCT within 6-24 hours if any concentrations <2 ng/mL are obtained. Performed By: #### L 509.7000 ####[facility] [address] [facility] [place], [address] Serum globulin measurementOr dered By: Cuco Soler on 04-14-2024 Globulin (S) [Mass/Vol] 5.6 g/dL High 2.2-4.2 [facility] Serum or plasma alanine briscoe otransferase (ALT) measurementOrdered By: Cuco Soler on 04-14-2024 ALT [Catalytic activity/Vol] 19 U/L 16-61 [facility] Serum or plasma albumin grazyna urement (mass/volume)Ordered By: Cuco Soler on 04-14-2024 Albumin [Mass/Vol] 2.7 g/dL Low 3.2-5.0 [facility] Serum or plasma alkaline benjamin sphatase measurementOrdered By: Cuco Soler on 04-14-2024 ALP [Catalytic activity/Vol] 77 U/L 45-117 [facility] Serum procalcitonin measurem entOrdered By: Fran Rodriguez on 04-14-2024 Procalcitonin [Mass/Vol] 0.18 ng/mL High 0.00-0.09 [facility] Strep pneumoniae Antig(UR,CS F)on 04-14-2024 STPAG Normal [facility] Comment on above: Performed By: #### M 8200.1000, M300.4600 ####[facility] [address] [place], [address] Total proteinOrdered By: Wilder Soler on 04-14-2024 Protein [Mass/Vol] 8.3 g/dL High 6.4-8.2 [facility] 6 Minute Walk Teston 025 6 Minute Walk Test Normal [facility] Basic Metabolic Profile (BMP )on 04-13-2024 BUN/CRE 17.1 RATIO Normal 10-20 [facility] Comment on above: Performed By: #### L 501.5200, L500.2500, L501.2300, L100.0100 ####[facility] [address] [place], [address] CA,Total 8.9 mg/dL Normal 8.5-10.1 [facility] Comment on above: Performed By: #### L 501.5200, L500.2500, L501.2300, L100.0100 ####[facility] [address] [place], [address] Chloride [Moles/Vol] 101 mmol/L Normal 98-107 [facility] Comment on above: Performed By: #### L 501.5200, L500.2500, L501.2300, L100.0100 ####[facility] [address] [place], [address] CO2 [Moles/Vol] 27.0 mmol/L Normal 21.0-32.0 [facility] Comment on above: Performed By: #### L 501.5200, L500.2500, L501.2300, L100.0100 ####[facility] [address] [place], [address] Creatinine [Mass/Vol] 1.17 mg/dL Normal 0.70-1.30 [facility] Comment on above: Result Comment: The validity of the calculated GFR GFRAA in patients over70 years has not been determined. Clinical correlation isessential. Performed By: #### L 501.5200, L500.2500, L501.2300, L100.0100 ####[facility] [address] [place], [address] ECRCL 93.62 ml/min Normal [facility] Comment on above: Performed By: #### L 501.5200, L500.2500, L501.2300, L100.0100 ####[facility] [address] [place], [address] EST GFR - AA 82 mL/min Normal >60 [facility] Comment on above: Result Comment: Afri can [place] GFR Calc Performed By: #### L 501.5200, L500.2500, L501.2300, L100.0100 ####[facility] [address] [place], [address] GAP 6 Normal 5-15 [facility] Comment on above: Performed By: #### L 501.5200, L500.2500, L501.2300, L100.0100 ####[facility] [address] [place], [address] GFR/1.73 sq M.predicted among non-blacks MDRD (S/P/Bld) [Vol rate/Area] 67 mL/min/{1.73_m2} Normal >60 [facility] Comment on above: Result Comment: Non- GFR Calc Performed By: #### L 501.5200, L500.2500, L501.2300, L100.0100 ####[facility] [address] [place], [address] Glucose [Mass/Vol] 193 mg/dL High 74-106 [facility] Comment on above: Result Comment: Fast ing Glucose result greater than or equal to 126 mg/dLsuggests DIABETES MELLITUS per A.D.A. criteria. Performed By: #### L 501.5200, L500.2500, L501.2300, L100.0100 ####[facility] [address] [place], [address] Potassium [Moles/Vol] 3.6 mmol/L Normal 3.5-5.1 [facility] Comment on above: Performed By: #### L 501.5200, L500.2500, L501.2300, L100.0100 ####[facility] [address] [place], [address] Sodium [Moles/Vol] 134 mmol/L Low 136-145 [facility] Comment on above: Performed By: #### L 501.5200, L500.2500, L501.2300, L100.0100 ####[facility] [address] [place], [address] Urea nitrogen [Mass/Vol] 20 mg/dL High 7-18 [facility] Comment on above: Performed By: #### L 501.5200, L500.2500, L501.2300, L100.0100 ####[facility] [address] [place], [address] Bedside Glucoseon 04-13-2024 FINGERSTICK GLU 190 mg/dL High 74-106 [facility] Comment on above: Result Comment: ANI BRADFORD OF PATIENT CARE PER NURSING PROTOCOL Performed By: #### L 501.080 ####[facility] [address] [place], [address] CBC W/Diff, Automatedon 04-01 Absolute Lymph 1.53 X10 3/uL Normal 0.83-4.51 [facility] Comment on above: Performed By: #### L 501.5200, L500.2500, L501.2300, L100.0100 ####[facility] [address] [place], [address] Absolute Neut 7.3 X10 3/uL Normal 2.0-7.7 [facility] Comment on above: Performed By: #### L 501.5200, L500.2500, L501.2300, L100.0100 ####[facility] [address] [place], [address] Basophils/100 WBC (Bld) 0.5 % Normal 0-1 [facility] Comment on above: Performed By: #### L 501.5200, L500.2500, L501.2300, L100.0100 ####[facility] [address] [place], [address] Eosinophils/100 WBC (Bld) 3.7 % Normal 0-5 [facility] Comment on above: Performed By: #### L 501.5200, L500.2500, L501.2300, L100.0100 ####[facility] [address] [place], [address] Erythrocyte distribution width (RBC) [Ratio] 19.9 % High 11.6-14.6 [facility] Comment on above: Performed By: #### L 501.5200, L500.2500, L501.2300, L100.0100 ####[facility] [address] [place], [address] Hematocrit (Bld) [Volume fraction] 26.7 % Low 40-54 [facility] Comment on above: Performed By: #### L 501.5200, L500.2500, L501.2300, L100.0100 ####[facility] [address] [place], [address] Hemoglobin (Bld) [Mass/Vol] 7.7 g/dL Low 13.0-16.5 [facility] Comment on above: Performed By: #### L 501.5200, L500.2500, L501.2300, L100.0100 ####[facility] [address] [place], [address] IG% 0.300 Normal 0.0-0.9 [facility] Comment on above: Result Comment: IG% - Immature Granulocytes (promyelocytes, myelocytes andmetamyelocytes) > 1% indicates that a LEFT SHIFT is Present. Performed By: #### L 501.5200, L500.2500, L501.2300, L100.0100 ####[facility] [address] [place], [address] Lymphocytes/100 WBC (Bld) 14.9 % Low 19-41 [facility] Comment on above: Performed By: #### L 501.5200, L500.2500, L501.2300, L100.0100 ####[facility] [address] [place], [address] MCH (RBC) [Entitic mass] 21.6 pg Low 27.0-32.0 [facility] Comment on above: Performed By: #### L 501.5200, L500.2500, L501.2300, L100.0100 ####[facility] [address] [place], [address] MCHC (RBC) [Mass/Vol] 28.8 g/dL Low 32-36 [facility] Comment on above: Performed By: #### L 501.5200, L500.2500, L501.2300, L100.0100 ####[facility] [address] [place], [address] MCV (RBC) [Entitic vol] 74.8 fL Low 80-94 [facility] Comment on above: Performed By: #### L 501.5200, L500.2500, L501.2300, L100.0100 ####[facility] [address] [place], [address] Monocytes/100 WBC (Bld) 9.8 % Normal 0-10 [facility] Comment on above: Performed By: #### L 501.5200, L500.2500, L501.2300, L100.0100 ####[facility] [address] [place], [address] Neutrophils/100 WBC (Bld) 70.8 % High 47-70 [facility] Comment on above: Performed By: #### L 501.5200, L500.2500, L501.2300, L100.0100 ####[facility] [address] [place], [address] Nucleated RBC (Bld) [#/Vol] 0 10*3/uL Normal 0-5 [facility] Comment on above: Performed By: #### L 501.5200, L500.2500, L501.2300, L100.0100 ####[facility] [address] [place], [address] Platelet mean volume (Bld) [Entitic vol] 9.6 fL Normal 6.2-12.0 [facility] Comment on above: Performed By: #### L 501.5200, L500.2500, L501.2300, L100.0100 ####[facility] [address] [place], [address] Platelets (Bld) [#/Vol] 289 10*3/uL Normal 150-450 [facility] Comment on above: Performed By: #### L 501.5200, L500.2500, L501.2300, L100.0100 ####[facility] [address] [place], [address] RBC (Bld) [#/Vol] 3.57 10*6/uL Low 4.6-6.2 [facility] Comment on above: Performed By: #### L 501.5200, L500.2500, L501.2300, L100.0100 ####[facility] [address] [place], [address] RDW SD 53.8 fl High 35.1-43.9 [facility] Comment on above: Performed By: #### L 501.5200, L500.2500, L501.2300, L100.0100 ####[facility] [address] [place], [address] WBC (Bld) [#/Vol] 10.3 10*3/uL Normal 4.4-11.0 [facility] Comment on above: Performed By: #### L 501.5200, L500.2500, L501.2300, L100.0100 ####[facility] [address] [place], [address] Chest without Contraston Chest without Contrast Normal [facility] Legionella Antigen Urineon 0 04-13-2024 LEGU Normal [facility] Comment on above: Performed By: #### M 300.4500 ####[facility] [address] [place], [address] Magnesiumon 04-13-2024 Magnesium [Mass/Vol] 2.3 mg/dL Normal 1.6-2.6 [facility] Comment on above: Performed By: #### L 501.5200, L500.2500, L501.2300, L100.0100 ####[facility] [address] [place], [address] Phosphoruson 04-13-2024 Phosphate [Mass/Vol] 4.4 mg/dL Normal 2.5-4.9 [facility] Comment on above: Performed By: #### L 501.5200, L500.2500, L501.2300, L100.0100 ####[facility] [address] [place], [address] RESPIRATORY PANEL MOLECULARo n 04-13-2024 RP PANEL Normal [facility] Comment on above: Performed By: #### M 100.638 ####[facility] [address] [place], [address] Respiratory pathogens detect ion panel by molecular detection methodOrdered By: Cuco Soler on 04-13-2024 Respiratory pathogens DNA and RNA panel FLORES+probe (Resp) [facility] Urine Legionella pneumophila antigen detectionOrdered By: Cuco Soler on 04-13-2024 L. pneumophila Ag Ql (U) [facility] 12 Lead EKGon 04-12-2024 12 Lead EKG Normal [facility] BNP (brain natriuretic pepti de measurement)Ordered By: Luli Alex on 04-12-2024 Natriuretic peptide B (Bld) [Mass/Vol] 124.0 pg/mL High 0-100 [facility] BNP,B-Type NATRIURETIC PEPTI Sindy 04-12-2024 Natriuretic peptide B (Bld) [Mass/Vol] 124.0 pg/mL High 0-100 [facility] Comment on above: Performed By: #### L 503.6620, L500.2500, L100.0100 ####[facility] [address] [place], [address] Basic Metabolic Profile (BMP )on 04-12-2024 BUN/CRE 16.5 RATIO Normal 10-20 [facility] Comment on above: Order Comment: REDRA W. PREVIOUS SPECIMEN REJECTED DUE TOHEMOLYSIS. 04/12/24 1220 Sharon Sandoval.1 Performed By: #### L 500.2500, L501.4020 ####[facility] [address] [place], [address] CA,Total 9.4 mg/dL Normal 8.5-10.1 [facility] Comment on above: Order Comment: REDRA W. PREVIOUS SPECIMEN REJECTED DUE TOHEMOLYSIS. 04/12/24 1220 Sharon Sandoval.1 Performed By: #### L 500.2500, L501.4020 ####[facility] [address] [place], [address] Chloride [Moles/Vol] 105 mmol/L Normal 98-107 [facility] Comment on above: Order Comment: REDRA W. PREVIOUS SPECIMEN REJECTED DUE TOHEMOLYSIS. 04/12/24 1220 Sharon Sandoval.1 Performed By: #### L 500.2500, L501.4020 ####[facility] [address] [place], [address] CO2 [Moles/Vol] 26.0 mmol/L Normal 21.0-32.0 [facility] Comment on above: Order Comment: REDRA W. PREVIOUS SPECIMEN REJECTED DUE TOHEMOLYSIS. 04/12/24 1220 Sharon Sandoval.1 Performed By: #### L 500.2500, L501.4020 ####[facility] [address] [place], [address] Creatinine [Mass/Vol] 0.97 mg/dL Normal 0.70-1.30 [facility] Comment on above: Order Comment: REDRA W. PREVIOUS SPECIMEN REJECTED DUE TOHEMOLYSIS. 04/12/24 1220 Sharon Sandoval.1 Result Comment: The validity of the calculated GFR GFRAA in patients over70 years has not been determined. Clinical correlation isessential. Performed By: #### L 500.2500, L501.4020 ####[facility] [address] [place], [address] EST GFR - AA 101 mL/min Normal >60 [facility] Comment on above: Order Comment: REDRA W. PREVIOUS SPECIMEN REJECTED DUE TOHEMOLYSIS. 04/12/24 1220 Sharon Sandoval.1 Result Comment: Afri can [place]amanian GFR Calc Performed By: #### L 500.2500, L501.4020 ####[facility] [address] [place], [address] GAP 3 Low 5-15 [facility] Comment on above: Order Comment: REDRA W. PREVIOUS SPECIMEN REJECTED DUE TOHEMOLYSIS. 04/12/24 1220 Sharon Sandoval.1 Performed By: #### L 500.2500, L501.4020 ####[facility] [address] [place], [address] GFR/1.73 sq M.predicted among non-blacks MDRD (S/P/Bld) [Vol rate/Area] 84 mL/min/{1.73_m2} Normal >60 [facility] Comment on above: Order Comment: REDRA W. PREVIOUS SPECIMEN REJECTED DUE TOHEMOLYSIS. 04/12/24 1220 Sharon Sandoval.1 Result Comment: Non- GFR Calc Performed By: #### L 500.2500, L501.4020 ####[facility] [address] [place], [address] Glucose [Mass/Vol] 124 mg/dL High 74-106 [facility] Comment on above: Order Comment: REDRA W. PREVIOUS SPECIMEN REJECTED DUE TOHEMOLYSIS. 04/12/24 1220 Sharon Sandoval.1 Result Comment: Fast ing Glucose result from 100 to 125 mg/dLsuggests IMPAIRED HOMEOSTASIS per A.D.A. criteria. Performed By: #### L 500.2500, L501.4020 ####[facility] [address] [place], [address] Potassium [Moles/Vol] 3.7 mmol/L Normal 3.5-5.1 [facility] Comment on above: Order Comment: REDRA W. PREVIOUS SPECIMEN REJECTED DUE TOHEMOLYSIS. 04/12/24 1220 Sharon Sandoval.1 Performed By: #### L 500.2500, L501.4020 ####[facility] [address] [place], [address] Sodium [Moles/Vol] 134 mmol/L Low 136-145 [facility] Comment on above: Order Comment: REDRA W. PREVIOUS SPECIMEN REJECTED DUE TOHEMOLYSIS. 04/12/24 1220 Sharon Sandoval.1 Performed By: #### L 500.2500, L501.4020 ####[facility] [address] [place], [address] Urea nitrogen [Mass/Vol] 16 mg/dL Normal 7-18 [facility] Comment on above: Order Comment: REDRA W. PREVIOUS SPECIMEN REJECTED DUE TOHEMOLYSIS. 04/12/24 1220 Sharon Sandoval.1 Performed By: #### L 500.2500, L501.4020 ####[facility] [address] [place], [address] BUN Normal 7-18 [facility] Comment on above: Order Comment: 'TROP ' Serial specimen #1, #2 or #3: 1 Result Comment: This specimen has been REJECTED due to Laboratory criteria:Hemolyzed.PORSCHE has been notified of need of recollection.04/12/24 1218 Sharon Sandoval Performed By: #### L 503.6620, L500.2500, L100.0100 ####[facility] [address] [place], [address] BUN/CRE Normal 10-20 [facility] Comment on above: Order Comment: 'TROP ' Serial specimen #1, #2 or #3: 1 Result Comment: This specimen has been REJECTED due to Laboratory criteria:Hemolyzed.PORSCHE has been notified of need of recollection.04/12/24 1218 Sharon Sandoval Performed By: #### L 503.6620, L500.2500, L100.0100 ####[facility] [address] [place], [address] CA,Total Normal 8.5-10.1 [facility] Comment on above: Order Comment: 'TROP ' Serial specimen #1, #2 or #3: 1 Result Comment: This specimen has been REJECTED due to Laboratory criteria:Hemolyzed.PORSCHE has been notified of need of recollection.04/12/24 1218 Sharon Sandoval Performed By: #### L 503.6620, L500.2500, L100.0100 ####[facility] [address] [place], [address] CL Normal 98-107 [facility] Comment on above: Order Comment: 'TROP ' Serial specimen #1, #2 or #3: 1 Result Comment: This specimen has been REJECTED due to Laboratory criteria:Hemolyzed.PORSCHE has been notified of need of recollection.04/12/24 1218 Sharon Sandoval Performed By: #### L 503.6620, L500.2500, L100.0100 ####[facility] [address] [place], [address] CO2 Normal 21.0-32.0 [facility] Comment on above: Order Comment: 'TROP ' Serial specimen #1, #2 or #3: 1 Result Comment: This specimen has been REJECTED due to Laboratory criteria:Hemolyzed.PORSCHE has been notified of need of recollection.04/12/24 1218 Sharon Sandoval Performed By: #### L 503.6620, L500.2500, L100.0100 ####[facility] [address] [place], [address] CREAT,SERUM Normal 0.70-1.30 [facility] Comment on above: Order Comment: 'TROP ' Serial specimen #1, #2 or #3: 1 Result Comment: This specimen has been REJECTED due to Laboratory criteria:Hemolyzed.ELOISAE has been notified of need of recollection.04/12/24 1218 Sharon Sandoval Performed By: #### L 503.6620, L500.2500, L100.0100 ####[facility] [address] [place], [address] EST GFR Normal >60 [facility] Comment on above: Order Comment: 'TROP ' Serial specimen #1, #2 or #3: 1 Result Comment: This specimen has been REJECTED due to Laboratory criteria:Hemolyzed.ELOISAE has been notified of need of recollection.04/12/24 1218 Sharon Sandoval Performed By: #### L 503.6620, L500.2500, L100.0100 ####[facility] [address] [place], [address] EST GFR - AA Normal >60 [facility] Comment on above: Order Comment: 'TROP ' Serial specimen #1, #2 or #3: 1 Result Comment: This specimen has been REJECTED due to Laboratory criteria:Hemolyzed.ELOISAE has been notified of need of recollection.04/12/248 Sharon Sandoval Performed By: #### L 503.6620, L500.2500, L100.0100 ####[facility] [address] [place], [address] GAP Normal 5-15 [facility] Comment on above: Order Comment: 'TROP ' Serial specimen #1, #2 or #3: 1 Result Comment: This specimen has been REJECTED due to Laboratory criteria:Hemolyzed.CHRISILIE has been notified of need of recollection.04/12/24 1218 Sharon Sandoval Performed By: #### L 503.6620, L500.2500, L100.0100 ####[facility] [address] [place], [address] GLU Normal 74-106 [facility] Comment on above: Order Comment: 'TROP ' Serial specimen #1, #2 or #3: 1 Result Comment: This specimen has been REJECTED due to Laboratory criteria:Hemolyzed.PORSCHE has been notified of need of recollection.04/12/24 1218 Sharon Sandoval Performed By: #### L 503.6620, L500.2500, L100.0100 ####[facility] [address] [place], [address] Potassium Normal 3.5-5.1 [facility] Comment on above: Order Comment: 'TROP ' Serial specimen #1, #2 or #3: 1 Result Comment: This specimen has been REJECTED due to Laboratory criteria:Hemolyzed.ELOISAE has been notified of need of recollection.04/12/24 1218 Sharon Sandoval Performed By: #### L 503.6620, L500.2500, L100.0100 ####[facility] [address] [place], [address] Basic Metabolic Profile (BMP) Normal 136-145 [facility] Comment on above: Order Comment: 'TROP ' Serial specimen #1, #2 or #3: 1 Result Comment: This specimen has been REJECTED due to Laboratory criteria:Hemolyzed.CHRISILIE has been notified of need of recollection.04/12/24 1218 Sharon Sandoval Performed By: #### L 503.6620, L500.2500, L100.0100 ####[facility] [address] [place], [address] Bedside Glucoseon 04-12-2024 FINGERSTICK GLU 161 mg/dL High 74-106 [facility] Comment on above: Result Comment: ANI GEMENT OF PATIENT CARE PER NURSING PROTOCOL Performed By: #### L 501.080 ####[facility] [address] [place], [address] FINGERSTICK GLU 159 mg/dL High 74-106 [facility] Comment on above: Result Comment: ANI GEMENT OF PATIENT CARE PER NURSING PROTOCOL Performed By: #### L 501.080 ####[facility] [address] [place], [address] Blood cultureOrdered By: Katherin Alex on 04-12-2024 Bacteria identified Cx Nom (Bld) No growth in 5 days. [facility] Bacteria identified Cx Nom (Bld) Presumptive Micrococcus spp. Abnormal [facility] CBC W/Diff, Automatedon 04-01 Absolute Lymph 0.90 X10 3/uL Normal 0.83-4.51 [facility] Comment on above: Performed By: #### L 100.0100 ####[facility] [address] [place], [address] Absolute Neut 9.6 X10 3/uL High 2.0-7.7 [facility] Comment on above: Performed By: #### L 100.0100 ####[facility] [address] [place], [address] Basophils/100 WBC (Bld) 0.3 % Normal 0-1 [facility] Comment on above: Performed By: #### L 100.0100 ####[facility] [address] [place], [address] Eosinophils/100 WBC (Bld) 2.1 % Normal 0-5 [facility] Comment on above: Performed By: #### L 100.0100 ####[facility] [address] [place], [address] Erythrocyte distribution width (RBC) [Ratio] 20.1 % High 11.6-14.6 [facility] Comment on above: Performed By: #### L 100.0100 ####[facility] [address] [place], [address] Hematocrit (Bld) [Volume fraction] 28.3 % Low 40-54 [facility] Comment on above: Performed By: #### L 100.0100 ####[facility] [address] [place], [address] Hemoglobin (Bld) [Mass/Vol] 8.2 g/dL Low 13.0-16.5 [facility] Comment on above: Performed By: #### L 100.0100 ####[facility] [address] [place], [address] IG% 0.400 Normal 0.0-0.9 [facility] Comment on above: Result Comment: IG% - Immature Granulocytes (promyelocytes, myelocytes andmetamyelocytes) > 1% indicates that a LEFT SHIFT is Present. Performed By: #### L 100.0100 ####[facility] [address] [place], [address] Lymphocytes/100 WBC (Bld) 7.5 % Low 19-41 [facility] Comment on above: Performed By: #### L 100.0100 ####[facility] [address] [place], [address] MCH (RBC) [Entitic mass] 21.7 pg Low 27.0-32.0 [facility] Comment on above: Performed By: #### L 100.0100 ####[facility] [address] [place], [address] MCHC (RBC) [Mass/Vol] 29.0 g/dL Low 32-36 [facility] Comment on above: Performed By: #### L 100.0100 ####[facility] [address] [place], [address] MCV (RBC) [Entitic vol] 74.9 fL Low 80-94 [facility] Comment on above: Performed By: #### L 100.0100 ####[facility] [address] [place], [address] Monocytes/100 WBC (Bld) 9.4 % Normal 0-10 [facility] Comment on above: Performed By: #### L 100.0100 ####[facility] [address] [place], [address] Neutrophils/100 WBC (Bld) 80.3 % High 47-70 [facility] Comment on above: Performed By: #### L 100.0100 ####[facility] [address] [place], [address] Nucleated RBC (Bld) [#/Vol] 0 10*3/uL Normal 0-5 [facility] Comment on above: Performed By: #### L 100.0100 ####[facility] [address] [place], [address] Platelet mean volume (Bld) [Entitic vol] 9.6 fL Normal 6.2-12.0 [facility] Comment on above: Performed By: #### L 100.0100 ####[facility] [address] [place], [address] Platelets (Bld) [#/Vol] 282 10*3/uL Normal 150-450 [facility] Comment on above: Performed By: #### L 100.0100 ####[facility] [address] [place], [address] RBC (Bld) [#/Vol] 3.78 10*6/uL Low 4.6-6.2 [facility] Comment on above: Performed By: #### L 100.0100 ####[facility] [address] [place], [address] RDW SD 54.1 fl High 35.1-43.9 [facility] Comment on above: Performed By: #### L 100.0100 ####[facility] [address] [place], [address] WBC (Bld) [#/Vol] 12.0 10*3/uL High 4.4-11.0 [facility] Comment on above: Performed By: #### L 100.0100 ####[facility] [address] [place], [address] Absolute Lymph 0.90 X10 3/uL Normal 0.83-4.51 [facility] Comment on above: Performed By: #### L 503.6620, L500.2500, L100.0100 ####[facility] [address] [place], [address] Absolute Neut 9.9 X10 3/uL High 2.0-7.7 [facility] Comment on above: Performed By: #### L 503.6620, L500.2500, L100.0100 ####[facility] [address] [place], [address] Basophils/100 WBC (Bld) 0.4 % Normal 0-1 [facility] Comment on above: Performed By: #### L 503.6620, L500.2500, L100.0100 ####[facility] [address] [place], [address] Eosinophils/100 WBC (Bld) 2.3 % Normal 0-5 [facility] Comment on above: Performed By: #### L 503.6620, L500.2500, L100.0100 ####[facility] [address] [place], [address] Erythrocyte distribution width (RBC) [Ratio] 19.9 % High 11.6-14.6 [facility] Comment on above: Performed By: #### L 503.6620, L500.2500, L100.0100 ####[facility] [address] [place], [address] Hematocrit (Bld) [Volume fraction] 27.8 % Low 40-54 [facility] Comment on above: Performed By: #### L 503.6620, L500.2500, L100.0100 ####[facility] [address] [place], [address] Hemoglobin (Bld) [Mass/Vol] 8.2 g/dL Low 13.0-16.5 [facility] Comment on above: Performed By: #### L 503.6620, L500.2500, L100.0100 ####[facility] [address] [place], [address] IG% 0.400 Normal 0.0-0.9 [facility] Comment on above: Result Comment: IG% - Immature Granulocytes (promyelocytes, myelocytes andmetamyelocytes) > 1% indicates that a LEFT SHIFT is Present. Performed By: #### L 503.6620, L500.2500, L100.0100 ####[facility] [address] [place], [address] Lymphocytes/100 WBC (Bld) 7.4 % Low 19-41 [facility] Comment on above: Performed By: #### L 503.6620, L500.2500, L100.0100 ####[facility] [address] [place], [address] MCH (RBC) [Entitic mass] 22.1 pg Low 27.0-32.0 [facility] Comment on above: Performed By: #### L 503.6620, L500.2500, L100.0100 ####[facility] [address] [place], [address] MCHC (RBC) [Mass/Vol] 29.5 g/dL Low 32-36 [facility] Comment on above: Performed By: #### L 503.6620, L500.2500, L100.0100 ####[facility] [address] [place], [address] MCV (RBC) [Entitic vol] 74.9 fL Low 80-94 [facility] Comment on above: Performed By: #### L 503.6620, L500.2500, L100.0100 ####[facility] [address] [place], [address] Monocytes/100 WBC (Bld) 8.5 % Normal 0-10 [facility] Comment on above: Performed By: #### L 503.6620, L500.2500, L100.0100 ####[facility] [address] [place], [address] Neutrophils/100 WBC (Bld) 81.0 % High 47-70 [facility] Comment on above: Performed By: #### L 503.6620, L500.2500, L100.0100 ####[facility] [address] [place], [address] Nucleated RBC (Bld) [#/Vol] 0 10*3/uL Normal 0-5 [facility] Comment on above: Performed By: #### L 503.6620, L500.2500, L100.0100 ####[facility] [address] [place], [address] Platelet mean volume (Bld) [Entitic vol] 10.5 fL Normal 6.2-12.0 [facility] Comment on above: Performed By: #### L 503.6620, L500.2500, L100.0100 ####[facility] [address] [place], [address] Platelets (Bld) [#/Vol] 349 10*3/uL Normal 150-450 [facility] Comment on above: Performed By: #### L 503.6620, L500.2500, L100.0100 ####[facility] [address] [place], [address] RBC (Bld) [#/Vol] 3.71 10*6/uL Low 4.6-6.2 [facility] Comment on above: Performed By: #### L 503.6620, L500.2500, L100.0100 ####[facility] [address] [place], [address] RDW SD 53.1 fl High 35.1-43.9 [facility] Comment on above: Performed By: #### L 503.6620, L500.2500, L100.0100 ####[facility] [address] [place], [address] WBC (Bld) [#/Vol] 12.2 10*3/uL High 4.4-11.0 [facility] Comment on above: Performed By: #### L 503.6620, L500.2500, L100.0100 ####[facility] [address] [place], [address] CO2 (BldV) [Moles/Vol]Ordere d By: Luli Alex on 04-12-2024 CO2 [Moles/Vol] 24 mmol/L 23-33 [facility] Chest 1 View (Portable)on Chest 1 View (Portable) Normal [facility] Emergency Department Summary on 04-12-2024 Emergency Department Summary Normal [facility] H AND P Exam - Hospitaliston 04-12-2024 H&P Exam - Hospitalist Normal [facility] Influenza virus A and B and SARS-CoV-2 (COVID-19) and Respiratory syncytial virus RNAOrdered By: Luli Alex on 04-12-2024 SARS-CoV-2 (COVID-19) RNA FLORES+probe Ql (Unsp spec) [facility] L501.4020on 04-12-2024 TROPONIN-I HS 12 pg/mL Normal 3.0-78.0 [facility] Comment on above: Order Comment: Comme nts: SPECIMEN #3'TROP' Serial specimen #1, #2 or #3: 3 Result Comment: Kodi monterroso Note: New Test Units and Gender Specific Reference Ranges. For more information see Policy Stat Procedure [place] High Sensitivity Troponin (TNIH) and attachments. Performed By: #### L 501.4020 ####[facility] [address] [place], [address] TROPONIN-I HS 18 pg/mL Normal 3.0-78.0 [facility] Comment on above: Order Comment: Comme nts: SPECIMEN #2'TROP' Serial specimen #1, #2 or #3: 2 Result Comment: Plea se Note: New Test Units and Gender Specific Reference Ranges. For more information see Policy Stat Procedure [place] High Sensitivity Troponin (TNIH) and attachments. Performed By: #### L 501.4020 ####[facility] [address] [place], [address] TROPONIN-I HS 16 pg/mL Normal 3.0-78.0 [facility] Comment on above: Order Comment: NEETU W. PREVIOUS SPECIMEN REJECTED DUE TOHEMOLYSIS. 04/12/24 1220 Sharon Sandoval.1 Result Comment: Plea se Note: New Test Units and Gender Specific Reference Ranges. For more information see Policy Stat Procedure [place] High Sensitivity Troponin (TNIH) and attachments. Performed By: #### L 500.2500, L501.4020 ####[facility] [address] [facility] [address] M100.678on 04-12-2024 M100.678 Pending SARS-CoV-2 (COVID 19) Negative INFLUENZA A Negative INFLUENZA B Negative RSV PCR Negative Normal [facility] Comment on above: Performed By: #### M 100.678 ####[facility] [address] [place], [address] No Panel InformationOrdered By: Luli Alex on 04-12-2024 JOSHUA [facility] Not entered [facility] Cannula [facility] Organism identificationOrder ed By: Luli Alex on 04-12-2024 Microorganism identified Cx Nom (Unsp spec) [facility] Troponin IOrdered By: Eduin Ospina on 04-12-2024 Troponin I 12 pg/mL 3.0-78.0 [facility] Venous Blood Gason 5 Blood Gas Type JOSHUA Normal [facility] Comment on above: Performed By: #### L 9000.0810 ####[facility] [address] [place], [address] CO2 [Moles/Vol] 24 mmol/L Normal 23-33 [facility] Comment on above: Performed By: #### L 9000.0810 ####[facility] [address] [place], [address] FI02 5.0 Normal [facility] Comment on above: Performed By: #### L 9000.0810 ####[facility] [address] [place], [address] HCO3 (Bld) [Moles/Vol] 23 mmol/L Normal 22-26 [facility] Comment on above: Performed By: #### L 9000.0810 ####[facility] [address] [place], [address] O2 Delivery Dev Cannula Normal [facility] Comment on above: Performed By: #### L 9000.0810 ####[facility] [address] [place], [address] SITE Not entered Normal [facility] Comment on above: Performed By: #### L 9000.0810 ####[facility] [address] [place], [address] VBG BE -1 mmol/L Normal -1.0-3.5 [facility] Comment on above: Performed By: #### L 9000.0810 ####[facility] [address] [place], [address] VBG pCO2 34.8 mmHg Low 41-51 [facility] Comment on above: Performed By: #### L 9000.0810 ####[facility] [address] [place], [address] VBG pH 7.43 High 7.32-7.42 [facility] Comment on above: Performed By: #### L 9000.0810 ####[facility] [address] [place], [address] VBG PO2 30 mmHg Normal 25-40 [facility] Comment on above: Performed By: #### L 9000.0810 ####[facility] [address] [place], [address] VBG SO2 60 Normal 50-70 [facility] Comment on above: Performed By: #### L 9000.0810 ####[facility] [address] [place], [address] Venous blood base excess elizabeth surementOrdered By: Luli Alex on 04-12-2024 Base excess Calc (BldV) [Moles/Vol] -1 mmol/L -1.0-3.5 [facility] Venous blood bicarbonate elizabeth surementOrdered By: Luli Alex on 04-12-2024 HCO3 (Bld) [Moles/Vol] 23 mmol/L 22-26 [facility] Venous blood pH measurementO rdered By: Luli Alex on 04-12-2024 pH (BldV) 7.43 [pH] High 7.32-7.42 [facility] Venous blood partial pressur e of carbon dioxide measurementOrdered By: Luli Alex on 04-12-2024 CO2 (BldV) [Partial pressure] 34.8 mm[Hg] Low 41-51 [facility] Venous blood partial pressur e of oxygen measurementOrdered By: Luli Alex on 04-12-2024 Oxygen (BldV) [Partial pressure] 30 mm[Hg] 25-40 [facility] 36on 04-09-2024 36 Call ref #[id number] 000 NAN for CPT 39644 & 42917 Normal [facility] No Panel Informationon 04-07 1. There is new significant elevation in the left common carotid artery suggesting a proximal common carotid significant stenosis greater than 50 percent luminal narrowing. Perhaps MR angiography without and with contrast would be helpful for further evaluation. 2. Further stenosis likely present within the proximal left internal carotid artery in the range of greater than 50 percent luminal narrowing 3. No hemodynamically significant stenosis in the right internal carotid artery 4. Incidental severe stenosis at the origin of the right external carotid artery. 5. Patent vertebral arteries This radiologist maintains RVT certification. Reference: Measurement of carotid stenosis is a ratio based on conventional angiographic data from the NASCET trials with the smallest caliber of the internal carotid as the numerator and normal post-stenotic internal carotid caliber as denominator. Stenosis based upon Society of Radiologists in Ultrasound consensus: <50%: ICA PS <125 cm/sec, ICA ED <40 cm/sec, ICA/CCA ratio <2.0 50-69%: ICA PS 125-230 cm/sec , ICA ED 40-100 cm/sec, ICA/CCA ratio 2-4 >70%: ICA PS >230 cm/sec, ICA ED >100 cm/sec, ICA/CCA ratio >4 Report Dictated on Electronically Signed By: Sameer Etienne MD Electronically Signed Date/Time: 04/07/2024 12:27 AM [facility] [employer] [facility]RUNAL LE[facility] 1965 [facility] [id number] Exam Date/Time: 04/06/2024 13:31 Procedure: VASC US CAROTID ARTERY DUPLEX BILATERAL Ordering Provider: JAUREGUI MADELINE Reason For Exam: Carotid stenosis BILATERAL CAROTID ULTRASOUND: CLINICAL INDICATION: Previous cerebral infarcts. Carotid stenosis. Ultrasound from 10/04/2023 TECHNIQUE: Two-dimensional, Color-flow and spectral Doppler sonography of the extracranial arterial circulation was performed. COMPARISON: CTA from 02/06/2024 FINDINGS: RIGHT: Plaque: Minor non-calcified and calcified plaque CCA peak systolic: 167 cm/sec CCA end diastolic: 26 cm/sec ICA peak systolic: 96 cm/sec ICA end diastolic: 20 cm/sec ICA/CCA ratio: 0.6 Estimated ICA stenosis: Less than 50% ECA systolic: 625 cm/sec Vertebral: Antegrade LEFT: Plaque: Moderate calcified and noncalcified plaque identified CCA peak systolic: 336 cm/sec CCA end diastolic: 48 cm/sec ICA peak systolic: 299 cm/sec ICA end diastolic: 48 cm/sec ICA/CCA ratio: 0.7 Estimated ICA stenosis: 50-69% ECA systolic: 256 cm/sec Vertebral: Antegrade [facility] [employer] Sameer Etienne MD - 04/07/2024 Patient Name: KRUNAL LEOS : 1965 [id number] Exam Date/Time: 04/06/2024 13:31 Procedure: VASC US CAROTID ARTERY DUPLEX BILATERAL Ordering Provider: JAUREGUI MADELINE Reason For Exam: Carotid stenosis BILATERAL CAROTID ULTRASOUND: CLINICAL INDICATION: Previous cerebral infarcts. Carotid stenosis. Ultrasound from 10/04/2023 TECHNIQUE: Two-dimensional, Color-flow and spectral Doppler sonography of the extracranial arterial circulation was performed. COMPARISON: CTA from 02/06/2024 FINDINGS: RIGHT: Plaque: Minor non-calcified and calcified plaque CCA peak systolic: 167 cm/sec CCA end diastolic: 26 cm/sec ICA peak systolic: 96 cm/sec ICA end diastolic: 20 cm/sec ICA/CCA ratio: 0.6 Estimated ICA stenosis: Less than 50% ECA systolic: 625 cm/sec Vertebral: Antegrade LEFT: Plaque: Moderate calcified and noncalcified plaque identified CCA peak systolic: 336 cm/sec CCA end diastolic: 48 cm/sec ICA peak systolic: 299 cm/sec ICA end diastolic: 48 cm/sec ICA/CCA ratio: 0.7 Estimated ICA stenosis: 50-69% ECA systolic: 256 cm/sec Vertebral: Antegrade IMPRESSION: 1. There is new significant elevation in the left common carotid artery suggesting a proximal common carotid significant stenosis greater than 50 percent luminal narrowing. Perhaps MR angiography without and with contrast would be helpful for further evaluation. 2. Further stenosis likely present within the proximal left internal carotid artery in the range of greater than 50 percent luminal narrowing 3. No hemodynamically significant stenosis in the right internal carotid artery 4. Incidental severe stenosis at the origin of the right external carotid artery. 5. Patent vertebral arteries This radiologist maintains RVT certification. Reference: Measurement of carotid stenosis is a ratio based on conventional angiographic data from the NASCET trials with the smallest caliber of the internal carotid as the numerator and normal post-stenotic internal carotid caliber as denominator. Stenosis based upon Society of Radiologists in Ultrasound consensus: <50%: ICA PS <125 cm/sec, ICA ED <40 cm/sec, ICA/CCA ratio <2.0 50-69%: ICA PS 125-230 cm/sec , ICA ED 40-100 cm/sec, ICA/CCA ratio 2-4 >70%: ICA PS >230 cm/sec, ICA ED >100 cm/sec, ICA/CCA ratio >4 Report Dictated on Electronically Signed By: Sameer Etienne MD Electronically Signed Date/Time: 04/07/2024 12:27 AM EST [facility] US CAROTID ARTERY DUPLE X BILATERALon 04-07-2024 [facility] US CAROTID ARTERY DUPLEX BILATERAL Patient Name: KRUNAL LEOS : 1965 [id number] Exam Date/Time: 04/06/2024 13:31 Procedure: VAS US CAROTID ARTERY DUPLEX BILATERAL Ordering Provider: JAUREGUI MADELINE Reason For Exam: Carotid stenosis BILATERAL CAROTID ULTRASOUND: CLINICAL INDICATION: Previous cerebral infarcts. Carotid stenosis. Ultrasound from 10/04/2023 TECHNIQUE: Two-dimensional, Color-flow and spectral Doppler sonography of the extracranial arterial circulation was performed. COMPARISON: CTA from 02/06/2024 FINDINGS: RIGHT: Plaque: Minor non-calcified and calcified plaque CCA peak systolic: 167 cm/sec CCA end diastolic: 26 cm/sec ICA peak systolic: 96 cm/sec ICA end diastolic: 20 cm/sec ICA/CCA ratio: 0.6 Estimated ICA stenosis: Less than 50% ECA systolic: 625 cm/sec Vertebral: Antegrade LEFT: Plaque: Moderate calcified and noncalcified plaque identified CCA peak systolic: 336 cm/sec CCA end diastolic: 48 cm/sec ICA peak systolic: 299 cm/sec ICA end diastolic: 48 cm/sec ICA/CCA ratio: 0.7 Estimated ICA stenosis: 50-69% ECA systolic: 256 cm/sec Vertebral: Antegrade IMPRESSION: 1. There is new significant elevation in the left common carotid artery suggesting a proximal common carotid significant stenosis greater than 50 percent luminal narrowing. Perhaps MR angiography without and with contrast would be helpful for further evaluation. 2. Further stenosis likely present within the proximal left internal carotid artery in the range of greater than 50 percent luminal narrowing 3. No hemodynamically significant stenosis in the right internal carotid artery 4. Incidental severe stenosis at the origin of the right external carotid artery. 5. Patent vertebral arteries This radiologist maintains RVT certification. Reference: Measurement of carotid stenosis is a ratio based on conventional angiographic data from the NASCET trials with the smallest caliber of the internal carotid as the numerator and normal post-stenotic internal carotid caliber as denominator. Stenosis based upon Society of Radiologists in Ultrasound consensus: <50%: ICA PS <125 cm/sec, ICA ED <40 cm/sec, ICA/CCA ratio <2.0 50-69%: ICA PS 125-230 cm/sec , ICA ED 40-100 cm/sec, ICA/CCA ratio 2-4 >70%: ICA PS >230 cm/sec, ICA ED >100 cm/sec, ICA/CCA ratio >4 Report Dictated on Electronically Signed By: Sameer Etienne MD Electronically Signed Date/Time: 04/07/2024 12:27 AM EST Normal [facility] Office Visit Reporton 2023 Office Visit Report Normal [facility] Bedside Glucoseon 03-27-2024 FINGERSTICK GLU 195 mg/dL High 74-106 [facility] Comment on above: Result Comment: ANI OMARENT OF PATIENT CARE PER NURSING PROTOCOL Performed By: #### L 501.080 ####[facility] [address] [place], [address] Colonoscopy Reporton 024 Colonoscopy Report Normal [facility] EGD Reporton 03-27-2024 EGD Report Normal [facility] H Pylori (initial)on 024 H Pylori (initial) Normal [facility] Comment on above: Performed By: #### P H.PYLORI ####[facility] [address] [place], [address] MR/POSTOP.ANEon 03-27-2024 MR/POSTOP.ANE Normal [facility] MR/KKSUQNAA2pi 03-27-2024 MR/POSTOPAN2 Normal [facility] Surgery Specimen Level Dolores 03-27-2024 Surgery Specimen Level IV Normal [facility] Comment on above: Performed By: #### P SUIV ####[facility] [address] [place], [place], [address] Pulmonary Visit Reporton Pulmonary Visit Report Normal [facility] MR/PAT.ANEon 03-20-2024 MR/PAT.ANE Normal [facility] Cardiology Visit Reporton Cardiology Visit Report Normal [facility] RICARDO w/ Reflex Mult Confirmon 03-05-2024 RICARDO,DIRECT Negative Normal Negative [facility] Comment on above: Result Comment: Perf ormed at: [facility] [id number] [place], [place] [id number] Director: Chance Morales PhD, Phone: [phone] Performed By: #### L 505.7010, L3300.1200, L3100.5450, L4600.0100 ####[facility] [address] [place], [address] ANCAon 03-05-2024 Atypical pANCA <1:20 Normal Neg:<1:20 [facility] Comment on above: Result Comment: The atypical pANCA pattern has been observed in asignificant percentage of patients with ulcerative colitis,primary sclerosing cholangitis and autoimmune hepatitis. Performed By: #### L 505.7010, L3300.1200, L3100.5450, L4600.0100 ####[facility] [address] [place], [address] Cytoplasmic Ab <1:20 Normal Neg:<1:20 [facility] Comment on above: Performed By: #### L 505.7010, L3300.1200, L3100.5450, L4600.0100 ####[facility] [address] [place], [address] Perinuclear Ab. <1:20 Normal Neg:<1:20 [facility] Comment on above: Result Comment: The presence of positive fluorescence exhibiting P-ANCA orC-ANCA patterns alone is not specific for the diagnosis ofWegener's Granulomatosis (WG) or microscopic polyangiitis.Decisions about treatment should not be based solely onANCA IFA results. The International ANCA Group Consensusrecommends follow up testing of positive sera with both AL-3 and MPO-ANCA enzyme immunoassays. As many as 5% serumsamples are positive only by EIA. Ref. AM J Clin Emiddw0746;111:507-513. Performed By: #### L 505.7010, L3300.1200, L3100.5450, L4600.0100 ####[facility] [address] [place], [address] CCP IgG Antibodieson 024 CCP IgG Ab. 6 units Normal 0-19 [facility] Comment on above: Result Comment: Nega tive <20 Weak positive 20 - 39 Moderate positive 40 - 59 Strong positive >59Performed at: [facility]Mop[facility] [place], [place] [id number] Director: Chance Morales PhD, Phone: [phone] Performed By: #### L 505.7010, L3300.1200, L3100.5450, L4600.0100 ####[facility] [address] [place], [address] Discharge Instructionon Discharge Instruction Normal [facility] Rheumatoid Factoron 03-04-20 24 RHEUMATOID FAC 25.0 IU/mL High <15 [facility] Comment on above: Performed By: #### L 505.7010, L3300.1200, L3100.5450, L4600.0100 ####[facility] [address] [place], [address] CBC W/Diff, Automatedon Absolute Lymph 1.46 X10 3/uL Normal 0.83-4.51 [facility] Comment on above: Performed By: #### L 501.9520, L100.0100 ####[facility] [address] [place], [address] Absolute Neut 5.9 X10 3/uL Normal 2.0-7.7 [facility] Comment on above: Performed By: #### L 501.9520, L100.0100 ####[facility] [address] [place], [address] Basophils/100 WBC (Bld) 0.6 % Normal 0-1 [facility] Comment on above: Performed By: #### L 501.9520, L100.0100 ####[facility] [address] [place], [address] Eosinophils/100 WBC (Bld) 2.9 % Normal 0-5 [facility] Comment on above: Performed By: #### L 501.9520, L100.0100 ####[facility] [address] [place], [address] Erythrocyte distribution width (RBC) [Ratio] 17.6 % High 11.6-14.6 [facility] Comment on above: Performed By: #### L 501.9520, L100.0100 ####[facility] [address] [place], [address] Hematocrit (Bld) [Volume fraction] 31.2 % Low 40-54 [facility] Comment on above: Performed By: #### L 501.9520, L100.0100 ####[facility] [address] [place], [address] Hemoglobin (Bld) [Mass/Vol] 9.0 g/dL Low 13.0-16.5 [facility] Comment on above: Performed By: #### L 501.9520, L100.0100 ####[facility] [address] [place], [address] IG% 0.400 Normal 0.0-0.9 [facility] Comment on above: Result Comment: IG% - Immature Granulocytes (promyelocytes, myelocytes andmetamyelocytes) > 1% indicates that a LEFT SHIFT is Present. Performed By: #### L 501.9520, L100.0100 ####[facility] [address] [place], [address] Lymphocytes/100 WBC (Bld) 17.2 % Low 19-41 [facility] Comment on above: Performed By: #### L 501.9520, L100.0100 ####[facility] [address] [place], [address] MCH (RBC) [Entitic mass] 21.9 pg Low 27.0-32.0 [facility] Comment on above: Performed By: #### L 501.9520, L100.0100 ####[facility] [address] [place], [address] MCHC (RBC) [Mass/Vol] 28.8 g/dL Low 32-36 [facility] Comment on above: Performed By: #### L 501.9520, L100.0100 ####[facility] [address] [place], [address] MCV (RBC) [Entitic vol] 75.9 fL Low 80-94 [facility] Comment on above: Performed By: #### L 501.9519, L100.0100 ####[facility] [address] [place], [address] Monocytes/100 WBC (Bld) 9.3 % Normal 0-10 [facility] Comment on above: Performed By: #### L 501.20, L100.0100 ####[facility] [address] [place], [address] Neutrophils/100 WBC (Bld) 69.6 % Normal 47-70 [facility] Comment on above: Performed By: #### L 501.20, L100.0100 ####[facility] [address] [place], [address] Nucleated RBC (Bld) [#/Vol] 0 10*3/uL Normal 0-5 [facility] Comment on above: Performed By: #### L 501.9520, L100.0100 ####[facility] [address] [place], [address] Platelet mean volume (Bld) [Entitic vol] 9.8 fL Normal 6.2-12.0 [facility] Comment on above: Performed By: #### L 501.9520, L100.0100 ####[facility] [address] [place], [address] Platelets (Bld) [#/Vol] 227 10*3/uL Normal 150-450 [facility] Comment on above: Performed By: #### L 501.95, L100.0100 ####[facility] [address] [place], [address] RBC (Bld) [#/Vol] 4.11 10*6/uL Low 4.6-6.2 [facility] Comment on above: Performed By: #### L 501.95, L100.0100 ####[facility] [address] [place], [address] RDW SD 47.8 fl High 35.1-43.9 [facility] Comment on above: Performed By: #### L 501.95, L100.0100 ####[facility] [address] [place], [address] WBC (Bld) [#/Vol] 8.5 10*3/uL Normal 4.4-11.0 [facility] Comment on above: Performed By: #### L 501.9520, L100.0100 ####[facility] [address] [place], [address] Chest without Contraston Chest without Contrast Normal [facility] Consultation - Intensiviston 03-03-2024 Consultation - Nanny Caregiver Normal [facility] RESPIRATORY PANEL MOLECULARo n 03-03-2024 RP PANEL Normal [facility] Comment on above: Performed By: #### M 100.638 ####[facility] [address] [place], [address] Thyroid Stim Hormone (TSH)on 03-03-2024 TSH 1.390 uIU/mL Normal 0.358-3.74 0 [facility] Comment on above: Performed By: #### L 501.9520, L100.0100 ####[facility] [address] [place], [address] 12 Lead EKGon 03-02-2024 12 Lead EKG Normal [facility] BNP,B-Type NATRIURETIC PEPTI Sindy 03-02-2024 Natriuretic peptide B (Bld) [Mass/Vol] 48.5 pg/mL Normal 0-100 [facility] Comment on above: Performed By: #### L 100.0100, L500.2500, L503.6620, L501.4020 ####[facility] [address] [place], [address] Basic Metabolic Profile (BMP )on 03-02-2024 BUN/CRE 23.3 RATIO High 10-20 [facility] Comment on above: Order Comment: 'TROP ' Serial specimen #1, #2 or #3: 1 Performed By: #### L 100.0100, L500.2500, L503.6620, L501.4020 ####[facility] [address] [place], [address] CA,Total 9.0 mg/dL Normal 8.5-10.1 [facility] Comment on above: Order Comment: 'TROP ' Serial specimen #1, #2 or #3: 1 Performed By: #### L 100.0100, L500.2500, L503.6620, L501.4020 ####[facility] [address] [place], [address] Chloride [Moles/Vol] 107 mmol/L Normal 98-107 [facility] Comment on above: Order Comment: 'TROP ' Serial specimen #1, #2 or #3: 1 Performed By: #### L 100.0100, L500.2500, L503.6620, L501.4020 ####[place] [facility] [address] [place], [address] CO2 [Moles/Vol] 24.0 mmol/L Normal 21.0-32.0 [facility] Comment on above: Order Comment: 'TROP ' Serial specimen #1, #2 or #3: 1 Performed By: #### L 100.0100, L500.2500, L503.6620, L501.4020 ####[facility] [address] [place], [address] Creatinine [Mass/Vol] 1.03 mg/dL Normal 0.70-1.30 [facility] Comment on above: Order Comment: 'TROP ' Serial specimen #1, #2 or #3: 1 Result Comment: The validity of the calculated GFR GFRAA in patients over70 years has not been determined. Clinical correlation isessential. Performed By: #### L 100.0100, L500.2500, L503.6620, L501.4020 ####[facility] [address] [place], [address] ECRCL 107.77 ml/min Normal [facility] Comment on above: Order Comment: 'TROP ' Serial specimen #1, #2 or #3: 1 Performed By: #### L 100.0100, L500.2500, L503.6620, L501.4020 ####[facility] [address] [place], [address] EST GFR - AA 95 mL/min Normal >60 [facility] Comment on above: Order Comment: 'TROP ' Serial specimen #1, #2 or #3: 1 Result Comment: Afri can Guamanian GFR Calc Performed By: #### L 100.0100, L500.2500, L503.6620, L501.4020 ####[facility] [address] [place], [address] GAP 6 Normal 5-15 [facility] Comment on above: Order Comment: 'TROP ' Serial specimen #1, #2 or #3: 1 Performed By: #### L 100.0100, L500.2500, L503.6620, L501.4020 ####[facility] [address] [place], [address] GFR/1.73 sq M.predicted among non-blacks MDRD (S/P/Bld) [Vol rate/Area] 78 mL/min/{1.73_m2} Normal >60 [facility] Comment on above: Order Comment: 'TROP ' Serial specimen #1, #2 or #3: 1 Result Comment: Non- GFR Calc Performed By: #### L 100.0100, L500.2500, L503.6620, L501.4020 ####[facility] [address] [place], [address] Glucose [Mass/Vol] 220 mg/dL High 74-106 [facility] Comment on above: Order Comment: 'TROP ' Serial specimen #1, #2 or #3: 1 Result Comment: Gluc ose result greater than or equal to 200 mg/dLsuggests DIABETES MELLITUS per A.D.A. criteria. Performed By: #### L 100.0100, L500.2500, L503.6620, L501.4020 ####[facility] [address] [place], [address] Potassium [Moles/Vol] 4.0 mmol/L Normal 3.5-5.1 [facility] Comment on above: Order Comment: 'TROP ' Serial specimen #1, #2 or #3: 1 Performed By: #### L 100.0100, L500.2500, L503.6620, L501.4020 ####[facility] [address] [place], [address] Sodium [Moles/Vol] 136 mmol/L Normal 136-145 [facility] Comment on above: Order Comment: 'TROP ' Serial specimen #1, #2 or #3: 1 Performed By: #### L 100.0100, L500.2500, L503.6620, L501.4020 ####[facility] [address] [place], [address] Urea nitrogen [Mass/Vol] 24 mg/dL High 7-18 [facility] Comment on above: Order Comment: 'TROP ' Serial specimen #1, #2 or #3: 1 Performed By: #### L 100.0100, L500.2500, L503.6620, L501.4020 ####[facility] [address] [place], [address] CBC W/Diff, Automatedon 12-0 2-2023 Absolute Lymph 1.30 X10 3/uL Normal 0.83-4.51 [facility] Comment on above: Performed By: #### L 100.0100, L500.2500, L503.6620, L501.4020 ####[facility] [address] [place], [address] Absolute Neut 6.6 X10 3/uL Normal 2.0-7.7 [facility] Comment on above: Performed By: #### L 100.0100, L500.2500, L503.6620, L501.4020 ####[facility] [address] [place], [address] Basophils/100 WBC (Bld) 0.6 % Normal 0-1 [facility] Comment on above: Performed By: #### L 100.0100, L500.2500, L503.6620, L501.4020 ####[facility] [address] [place], [address] Eosinophils/100 WBC (Bld) 2.4 % Normal 0-5 [facility] Comment on above: Performed By: #### L 100.0100, L500.2500, L503.6620, L501.4020 ####[facility] [address] [place], [address] Erythrocyte distribution width (RBC) [Ratio] 17.9 % High 11.6-14.6 [facility] Comment on above: Performed By: #### L 100.0100, L500.2500, L503.6620, L501.4020 ####[facility] [address] [place], [address] Hematocrit (Bld) [Volume fraction] 32.1 % Low 40-54 [facility] Comment on above: Performed By: #### L 100.0100, L500.2500, L503.6620, L501.4020 ####[facility] [address] [place], [address] Hemoglobin (Bld) [Mass/Vol] 9.3 g/dL Low 13.0-16.5 [facility] Comment on above: Performed By: #### L 100.0100, L500.2500, L503.6620, L501.4020 ####[facility] [address] [place], [address] IG% 0.400 Normal 0.0-0.9 [facility] Comment on above: Result Comment: IG% - Immature Granulocytes (promyelocytes, myelocytes andmetamyelocytes) > 1% indicates that a LEFT SHIFT is Present. Performed By: #### L 100.0100, L500.2500, L503.6620, L501.4020 ####[facility] [address] [place], [address] Lymphocytes/100 WBC (Bld) 14.4 % Low 19-41 [facility] Comment on above: Performed By: #### L 100.0100, L500.2500, L503.6620, L501.4020 ####[facility] [address] [place], [address] MCH (RBC) [Entitic mass] 22.2 pg Low 27.0-32.0 [facility] Comment on above: Performed By: #### L 100.0100, L500.2500, L503.6620, L501.4020 ####[facility] [address] [place], [address] MCHC (RBC) [Mass/Vol] 29.0 g/dL Low 32-36 [facility] Comment on above: Performed By: #### L 100.0100, L500.2500, L503.6620, L501.4020 ####[facility] [address] [place], [address] MCV (RBC) [Entitic vol] 76.6 fL Low 80-94 [facility] Comment on above: Performed By: #### L 100.0100, L500.2500, L503.6620, L501.4020 ####[facility] [address] [place], [address] Monocytes/100 WBC (Bld) 8.3 % Normal 0-10 [facility] Comment on above: Performed By: #### L 100.0100, L500.2500, L503.6620, L501.4020 ####[facility] [address] [place], [address] Neutrophils/100 WBC (Bld) 73.9 % High 47-70 [facility] Comment on above: Performed By: #### L 100.0100, L500.2500, L503.6620, L501.4020 ####[facility] [address] [place], [address] Nucleated RBC (Bld) [#/Vol] 0 10*3/uL Normal 0-5 [facility] Comment on above: Performed By: #### L 100.0100, L500.2500, L503.6620, L501.4020 ####[facility] [address] [place], [address] Platelet mean volume (Bld) [Entitic vol] 10.6 fL Normal 6.2-12.0 [facility] Comment on above: Performed By: #### L 100.0100, L500.2500, L503.6620, L501.4020 ####[facility] [address] [place], [address] Platelets (Bld) [#/Vol] 242 10*3/uL Normal 150-450 [facility] Comment on above: Performed By: #### L 100.0100, L500.2500, L503.6620, L501.4020 ####[facility] [address] [place], [address] RBC (Bld) [#/Vol] 4.19 10*6/uL Low 4.6-6.2 [facility] Comment on above: Performed By: #### L 100.0100, L500.2500, L503.6620, L501.4020 ####[facility] [address] [place], [address] RDW SD 49.2 fl High 35.1-43.9 [facility] Comment on above: Performed By: #### L 100.0100, L500.2500, L503.6620, L501.4020 ####[facility] [address] [place], [address] WBC (Bld) [#/Vol] 9.0 10*3/uL Normal 4.4-11.0 [facility] Comment on above: Performed By: #### L 100.0100, L500.2500, L503.6620, L501.4020 ####[facility] [address] [place], [address] Chest PA and Lateralon 03-02 Chest PA and Lateral Normal [facility] Echo Complete W/ Contraston 03-02-2024 Echo Complete W/ Contrast Normal [facility] Emergency Department Summary on 03-02-2024 Emergency Department Summary Normal [facility] H AND P Exam - Hospitaliston 03-02-2024 H&P Exam - Hospitalist Normal [facility] L501.4020on 03-02-2024 TROPONIN-I HS 35 pg/mL Normal 3.0-78.0 [facility] Comment on above: Order Comment: 'TROP ' Serial specimen #1, #2 or #3: 1 Result Comment: Kodi monterroso Note: New Test Units and Gender Specific Reference Ranges. For more information see Policy Stat Procedure [place] High Sensitivity Troponin (TNIH) and attachments. Performed By: #### L 100.0100, L500.2500, L503.6620, L501.4020 ####[facility] [address] [place], [address] M100.678on 03-02-2024 M100.678 Pending SARS-CoV-2 (COVID 19) Negative INFLUENZA A Negative INFLUENZA B Negative RSV PCR Negative Normal [facility] Comment on above: Performed By: #### M 100.678 ####[facility] [address] [place], [address] Basic Metabolic Profile (BMP )on 02-26-2024 BUN/CRE 20.5 RATIO High 10-20 [facility] Comment on above: Order Comment: 'TROP ' Serial specimen #1, #2 or #3: 1 Performed By: #### L 501.5200, L501.4020, L500.2500, L100.0100 ####[facility] [address] [place], [address] CA,Total 9.0 mg/dL Normal 8.5-10.1 [facility] Comment on above: Order Comment: 'TROP ' Serial specimen #1, #2 or #3: 1 Performed By: #### L 501.5200, L501.4020, L500.2500, L100.0100 ####[facility] [address] [place], [address] Chloride [Moles/Vol] 109 mmol/L High 98-107 [facility] Comment on above: Order Comment: 'TROP ' Serial specimen #1, #2 or #3: 1 Performed By: #### L 501.5200, L501.4020, L500.2500, L100.0100 ####[facility] [address] [place], [address] CO2 [Moles/Vol] 22.0 mmol/L Normal 21.0-32.0 [facility] Comment on above: Order Comment: 'TROP ' Serial specimen #1, #2 or #3: 1 Performed By: #### L 501.5200, L501.4020, L500.2500, L100.0100 ####[facility] [address] [place], [address] Creatinine [Mass/Vol] 1.32 mg/dL High 0.70-1.30 [facility] Comment on above: Order Comment: 'TROP ' Serial specimen #1, #2 or #3: 1 Result Comment: The validity of the calculated GFR GFRAA in patients over70 years has not been determined. Clinical correlation isessential. Performed By: #### L 501.5200, L501.4020, L500.2500, L100.0100 ####[facility] [address] [place], [address] ECRCL 83.89 ml/min Normal [facility] Comment on above: Order Comment: 'TROP ' Serial specimen #1, #2 or #3: 1 Performed By: #### L 501.5200, L501.4020, L500.2500, L100.0100 ####[facility] [address] [place], [address] EST GFR - AA 71 mL/min Normal >60 [facility] Comment on above: Order Comment: 'TROP ' Serial specimen #1, #2 or #3: 1 Result Comment: Afri can [place] GFR Calc Performed By: #### L 501.5200, L501.4020, L500.2500, L100.0100 ####[facility] [address] [place], [address] GAP 7 Normal 5-15 [facility] Comment on above: Order Comment: 'TROP ' Serial specimen #1, #2 or #3: 1 Performed By: #### L 501.5200, L501.4020, L500.2500, L100.0100 ####[facility] [address] [place], [address] GFR/1.73 sq M.predicted among non-blacks MDRD (S/P/Bld) [Vol rate/Area] 59 mL/min/{1.73_m2} Low >60 [facility] Comment on above: Order Comment: 'TROP ' Serial specimen #1, #2 or #3: 1 Result Comment: Non- GFR Calc Performed By: #### L 501.5200, L501.4020, L500.2500, L100.0100 ####[facility] [address] [place], [address] Glucose [Mass/Vol] 193 mg/dL High 74-106 [facility] Comment on above: Order Comment: 'TROP ' Serial specimen #1, #2 or #3: 1 Result Comment: Fast ing Glucose result greater than or equal to 126 mg/dLsuggests DIABETES MELLITUS per A.D.A. criteria. Performed By: #### L 501.5200, L501.4020, L500.2500, L100.0100 ####[facility] [address] [place], [address] Potassium [Moles/Vol] 4.0 mmol/L Normal 3.5-5.1 [facility] Comment on above: Order Comment: 'TROP ' Serial specimen #1, #2 or #3: 1 Performed By: #### L 501.5200, L501.4020, L500.2500, L100.0100 ####[facility] [address] [place], [address] Sodium [Moles/Vol] 138 mmol/L Normal 136-145 [facility] Comment on above: Order Comment: 'TROP ' Serial specimen #1, #2 or #3: 1 Performed By: #### L 501.5200, L501.4020, L500.2500, L100.0100 ####[facility] [address] [place], [address] Urea nitrogen [Mass/Vol] 27 mg/dL High 7-18 [facility] Comment on above: Order Comment: 'TROP ' Serial specimen #1, #2 or #3: 1 Performed By: #### L 501.5200, L501.4020, L500.2500, L100.0100 ####[facility] [address] [place], [address] CBC W/Diff, Automatedon 11-2 Absolute Lymph 1.36 X10 3/uL Normal 0.83-4.51 [facility] Comment on above: Performed By: #### L 501.5200, L501.4020, L500.2500, L100.0100 ####[facility] [address] [place], [address] Absolute Neut 6.7 X10 3/uL Normal 2.0-7.7 [facility] Comment on above: Performed By: #### L 501.5200, L501.4020, L500.2500, L100.0100 ####[facility] [address] [place], [address] Basophils/100 WBC (Bld) 0.9 % Normal 0-1 [facility] Comment on above: Performed By: #### L 501.5200, L501.4020, L500.2500, L100.0100 ####[facility] [address] [place], [address] Eosinophils/100 WBC (Bld) 2.1 % Normal 0-5 [facility] Comment on above: Performed By: #### L 501.5200, L501.4020, L500.2500, L100.0100 ####[facility] [address] [place], [address] Erythrocyte distribution width (RBC) [Ratio] 18.2 % High 11.6-14.6 [facility] Comment on above: Performed By: #### L 501.5200, L501.4020, L500.2500, L100.0100 ####[facility] [address] [place], [address] Hematocrit (Bld) [Volume fraction] 34.4 % Low 40-54 [facility] Comment on above: Performed By: #### L 501.5200, L501.4020, L500.2500, L100.0100 ####[facility] [address] [place], [address] Hemoglobin (Bld) [Mass/Vol] 10.2 g/dL Low 13.0-16.5 [facility] Comment on above: Performed By: #### L 501.5200, L501.4020, L500.2500, L100.0100 ####[facility] [address] [place], [address] IG% 0.400 Normal 0.0-0.9 [facility] Comment on above: Result Comment: IG% - Immature Granulocytes (promyelocytes, myelocytes andmetamyelocytes) > 1% indicates that a LEFT SHIFT is Present. Performed By: #### L 501.5200, L501.4020, L500.2500, L100.0100 ####[facility] [address] [place], [address] Lymphocytes/100 WBC (Bld) 14.5 % Low 19-41 [facility] Comment on above: Performed By: #### L 501.5200, L501.4020, L500.2500, L100.0100 ####[facility] [address] [place], [address] MCH (RBC) [Entitic mass] 22.7 pg Low 27.0-32.0 [facility] Comment on above: Performed By: #### L 501.5200, L501.4020, L500.2500, L100.0100 ####[facility] [address] [place], [address] MCHC (RBC) [Mass/Vol] 29.7 g/dL Low 32-36 [facility] Comment on above: Performed By: #### L 501.5200, L501.4020, L500.2500, L100.0100 ####[facility] [address] [place], [address] MCV (RBC) [Entitic vol] 76.6 fL Low 80-94 [facility] Comment on above: Performed By: #### L 501.5200, L501.4020, L500.2500, L100.0100 ####[facility] [address] [place], [address] Monocytes/100 WBC (Bld) 10.1 % High 0-10 [facility] Comment on above: Performed By: #### L 501.5200, L501.4020, L500.2500, L100.0100 ####[facility] [address] [place], [address] Neutrophils/100 WBC (Bld) 72.0 % High 47-70 [facility] Comment on above: Performed By: #### L 501.5200, L501.4020, L500.2500, L100.0100 ####[facility] [address] [place], [address] Nucleated RBC (Bld) [#/Vol] 0 10*3/uL Normal 0-5 [facility] Comment on above: Performed By: #### L 501.5200, L501.4020, L500.2500, L100.0100 ####[facility] [address] [place], [address] Platelet mean volume (Bld) [Entitic vol] 10.1 fL Normal 6.2-12.0 [facility] Comment on above: Performed By: #### L 501.5200, L501.4020, L500.2500, L100.0100 ####[facility] [address] [place], [address] Platelets (Bld) [#/Vol] 254 10*3/uL Normal 150-450 [facility] Comment on above: Performed By: #### L 501.5200, L501.4020, L500.2500, L100.0100 ####[facility] [address] [place], [address] RBC (Bld) [#/Vol] 4.49 10*6/uL Low 4.6-6.2 [facility] Comment on above: Performed By: #### L 501.5200, L501.4020, L500.2500, L100.0100 ####[facility] [address] [place], [address] RDW SD 49.1 fl High 35.1-43.9 [facility] Comment on above: Performed By: #### L 501.5200, L501.4020, L500.2500, L100.0100 ####[facility] [address] [place], [address] WBC (Bld) [#/Vol] 9.4 10*3/uL Normal 4.4-11.0 [facility] Comment on above: Performed By: #### L 501.5200, L501.4020, L500.2500, L100.0100 ####[facility] [address] [place], [address] Chest 1 View (Portable)on Chest 1 View (Portable) Normal [facility] D-Dimer Quantitative (DVT/PE )on 02-26-2024 D-DIMER QUANT 0.44 FEU/ug/m Normal 0.27-0.49 [facility] Comment on above: Result Comment: NORM AL D-Dimer level (<0.50) indicates no DVT or PE. Performed By: #### L 300.8000 ####[facility] [address] [place], [address] Emergency Department Summary on 02-26-2024 Emergency Department Summary Normal [facility] L501.4020on 02-26-2024 TROPONIN-I HS 443 pg/mL Invalid Interpretation Code 3.0-78.0 [facility] Comment on above: Order Comment: 'TROP ' Serial specimen #1, #2 or #3: 2 Result Comment: Crit ical Result(s) Called at: 13:36:54 02/26/2024 by: CINDI Estevez. Results read back by same. Please Note: New Test Units and Gender Specific Reference Ranges. For more information see Policy Stat Procedure [place] High Sensitivity Troponin (TNIH) and attachments. Performed By: #### L 501.4020 ####[facility] [address] [place], [address] TROPONIN-I HS 358 pg/mL Invalid Interpretation Code 3.0-78.0 [facility] Comment on above: Order Comment: 'TROP ' Serial specimen #1, #2 or #3: 1 Result Comment: Crit ical Result(s) Called at: 11:46:25 02/26/2024 by: CINDI Vazquez. Results read back by same. Please Note: New Test Units and Gender Specific Reference Ranges. For more information see Policy Stat Procedure [place] High Sensitivity Troponin (TNIH) and attachments. Performed By: #### L 501.5200, L501.4020, L500.2500, L100.0100 ####[facility] [address] [place], [address] Magnesiumon 02-26-2024 Magnesium [Mass/Vol] 2.3 mg/dL Normal 1.6-2.6 [facility] Comment on above: Order Comment: 'TROP ' Serial specimen #1, #2 or #3: 1 Performed By: #### L 501.5200, L501.4020, L500.2500, L100.0100 ####[facility] [address] [place], [address] Office Visit Reporton 2023 Office Visit Report Normal [facility] Neurology Visit Reporton Neurology Visit Report Normal [facility] 36on 02-12-2024 36 Notes and imaging reviewed with Dr. Culp. The left internal carotid artery has approximately 80% stenosis of the left internal carotid artery. We will plan for diagnostic cerebral angiogram with intent to stent the left internal carotid artery. The patient will need to continue aspirin 81 mg daily. Five days prior to surgery he should hold Eliquis. He will start Plavix 75mg daily 5 days prior to procedure in addition to his aspirin 81 mg. Pending the results of angiogram we will determine when to resume Eliquis. Normal [facility] 36 This patient left a voicemail returning a call regarding his test results with Dr. Hutton Please advise :) Normal [facility] Gastroenterology Visit Repor ton 02-07-2024 Gastroenterology Visit Report Normal [facility] 36on 02-06-2024 36 Name of caller: Harpreet damon Contact phone number: [phone] Relationship to Patient: care team amanda Provider: Jose Antonio Practice: Endovascular Chief Complaint/Reason for Call: please send all lab work from September to fax [phone] [facility] Best time of day caller can be reached: any Patient advised that office/PCP has 24-48 business hours to return their call: No Normal [facility] CT HEAD NECK ANGIO W AND WO IV CONTRASTon 02-06-2024 CT HEAD NECK ANGIO W AND WO IV CONTRAST Patient Name: KRUNAL LEOS : 1965 Exam Date/Time: 02/06/2024 08:04 Procedure: CT HEAD NECK ANGIO W AND WO IV CONTRAST Ordering Provider: CULP ALEXANDER Reason For Exam: Stroke/TIA, determine embolic source CTA head and neck with and without contrast Protocol: 3 mm axial images without contrast, 0.5 mm images with contrast, 3D rendering performed by me on a separate workstation Dose reduction was employed with automated exposure control. There is no evidence of intracranial hemorrhage, extra-axial fluid collection, hydrocephalus, or infarct. The bilateral anterior, middle, and posterior cerebral arteries are normal. The basilar artery is normal. Calcified atherosclerosis at the origins of the bilateral internal carotid arteries with a 20 percent stenosis on the right and a 80 percent stenosis on the left measured using the NASCET criteria. Occlusion of the left vertebral artery. The right vertebral artery is normal. IMPRESSION: 80 percent calcified stenosis at the origin of the left internal carotid artery. Occlusion of the left vertebral artery. Report Dictated on Electronically Signed By: Cecilio Santamaria MD Electronically Signed Date/Time: 02/06/2024 7:42 PM EST Stroke/TIA, determine embolic source, Bilateral carotid artery stenosis, Ischemic cerebrovascular accident Normal [facility] Thyroidon 02-06-2024 Thyroid Normal [facility] Progress Noteon 02-05-2024 Progress Note 02/05/24 Pt was seen today for CT Head/Neck w & wo contrast @ [facility] Pt had multiple attempts for IV placement from 2 different techs, with no success. Patient did inform us that he is a very hard stick and normally US is needed. Reached out to oncology for assistance but were extremely busy. Pt was advised to call central scheduling to reschedule at either [facility] or [facility] as they have US. He was initially scheduled at [facility]. The office was contacted on 02/05/24 to relay the information on the outcome of today's CT exam. Christine at the office was given this information. Normal [facility] Oncology Visit Reporton Oncology Visit Report Normal [facility] Basic Metabolic Profile (BMP )on 01-22-2024 BUN/CRE 25.4 RATIO High 01-18 [facility] Comment on above: Performed By: #### L 500.2500, L100.0100 ####[facility] [address] [place], [address] CA,Total 8.9 mg/dL Normal 8.5-10.1 [facility] Comment on above: Performed By: #### L 500.2500, L100.0100 ####[facility] [address] [place], [address] Chloride [Moles/Vol] 105 mmol/L Normal 98-107 [facility] Comment on above: Performed By: #### L 500.2500, L100.0100 ####[facility] [address] [place], [address] CO2 [Moles/Vol] 24.0 mmol/L Normal 21.0-32.0 [facility] Comment on above: Performed By: #### L 500.2500, L100.0100 ####[facility] [address] [place], [address] Creatinine [Mass/Vol] 1.22 mg/dL Normal 0.70-1.30 [facility] Comment on above: Result Comment: The validity of the calculated GFR GFRAA in patients over70 years has not been determined. Clinical correlation isessential. Performed By: #### L 500.2500, L100.0100 ####[facility] [address] [place], [address] ECRCL 91.97 ml/min Normal [facility] Comment on above: Performed By: #### L 500.2500, L100.0100 ####[facility] [address] [place], [address] EST GFR - AA 78 mL/min Normal >60 [facility] Comment on above: Result Comment: Afri can [place] GFR Calc Performed By: #### L 500.2500, L100.0100 ####[facility] [address] [place], [address] GAP 7 Normal 5-15 [facility] Comment on above: Performed By: #### L 500.2500, L100.0100 ####[facility] [address] [place], [address] GFR/1.73 sq M.predicted among non-blacks MDRD (S/P/Bld) [Vol rate/Area] 64 mL/min/{1.73_m2} Normal >60 [facility] Comment on above: Result Comment: Non- GFR Calc Performed By: #### L 500.2500, L100.0100 ####[facility] [address] [place], [address] Glucose [Mass/Vol] 196 mg/dL High 74-106 [facility] Comment on above: Result Comment: Fast ing Glucose result greater than or equal to 126 mg/dLsuggests DIABETES MELLITUS per A.D.A. criteria. Performed By: #### L 500.2500, L100.0100 ####[facility] [address] [place], [address] Potassium [Moles/Vol] 4.1 mmol/L Normal 3.5-5.1 [facility] Comment on above: Performed By: #### L 500.2500, L100.0100 ####[facility] [address] [place], [address] Sodium [Moles/Vol] 136 mmol/L Normal 136-145 [facility] Comment on above: Performed By: #### L 500.2500, L100.0100 ####[facility] [address] [place], [address] Urea nitrogen [Mass/Vol] 31 mg/dL High 7-18 [facility] Comment on above: Performed By: #### L 500.2500, L100.0100 ####[facility] [address] [place], [address] Bedside Glucoseon 01-22-2024 FINGERSTICK GLU 224 mg/dL High 74-106 [facility] Comment on above: Result Comment: ANI GEMENT OF PATIENT CARE PER NURSING PROTOCOL Performed By: #### L 501.080 ####[facility] [address] [place], [address] FINGERSTICK GLU 177 mg/dL High 74-106 [facility] Comment on above: Result Comment: ANI GEMENT OF PATIENT CARE PER NURSING PROTOCOL Performed By: #### L 501.080 ####[facility] [facility] [address] [place], [address] CBC W/Diff, Automatedon 10-2 -2023 Absolute Lymph 2.23 X10 3/uL Normal 0.83-4.51 [facility] Comment on above: Performed By: #### L 500.2500, L100.0100 ####[facility] [address] [place], [address] Absolute Neut 6.5 X10 3/uL Normal 2.0-7.7 [facility] Comment on above: Performed By: #### L 500.2500, L100.0100 ####[facility] [address] [place], [address] Basophils/100 WBC (Bld) 0.6 % Normal 0-1 [facility] Comment on above: Performed By: #### L 500.2500, L100.0100 ####[facility] [address] [place], [address] Eosinophils/100 WBC (Bld) 3.8 % Normal 0-5 [facility] Comment on above: Performed By: #### L 500.2500, L100.0100 ####[facility] [address] [place], [address] Erythrocyte distribution width (RBC) [Ratio] 17.5 % High 11.6-14.6 [facility] Comment on above: Performed By: #### L 500.2500, L100.0100 ####[facility] [address] [place], [address] Hematocrit (Bld) [Volume fraction] 30.9 % Low 40-54 [facility] Comment on above: Performed By: #### L 500.2500, L100.0100 ####[facility] [address] [place], [address] Hemoglobin (Bld) [Mass/Vol] 9.3 g/dL Low 13.0-16.5 [facility] Comment on above: Performed By: #### L 500.2500, L100.0100 ####[facility] [address] [place], [address] IG% 0.500 Normal 0.0-0.9 [facility] Comment on above: Result Comment: IG% - Immature Granulocytes (promyelocytes, myelocytes andmetamyelocytes) > 1% indicates that a LEFT SHIFT is Present. Performed By: #### L 500.2500, L100.0100 ####[facility] [address] [place], [address] Lymphocytes/100 WBC (Bld) 21.7 % Normal 19-41 [facility] Comment on above: Performed By: #### L 500.2500, L100.0100 ####[facility] [address] [place], [address] MCH (RBC) [Entitic mass] 23.4 pg Low 27.0-32.0 [facility] Comment on above: Performed By: #### L 500.2500, L100.0100 ####[facility] [address] [place], [address] MCHC (RBC) [Mass/Vol] 30.1 g/dL Low 32-36 [facility] Comment on above: Performed By: #### L 500.2500, L100.0100 ####[facility] [address] [place], [address] MCV (RBC) [Entitic vol] 77.6 fL Low 80-94 [facility] Comment on above: Performed By: #### L 500.2500, L100.0100 ####[facility] [address] [place], [address] Monocytes/100 WBC (Bld) 10.7 % High 0-10 [facility] Comment on above: Performed By: #### L 500.2500, L100.0100 ####[facility] [address] [place], [address] Neutrophils/100 WBC (Bld) 62.7 % Normal 47-70 [facility] Comment on above: Performed By: #### L 500.2500, L100.0100 ####[facility] [address] [place], [address] Nucleated RBC (Bld) [#/Vol] 0 10*3/uL Normal 0-5 [facility] Comment on above: Performed By: #### L 500.2500, L100.0100 ####[facility] [address] [place], [address] Platelet mean volume (Bld) [Entitic vol] 9.8 fL Normal 6.2-12.0 [facility] Comment on above: Performed By: #### L 500.2500, L100.0100 ####[facility] [address] [place], [address] Platelets (Bld) [#/Vol] 273 10*3/uL Normal 150-450 [facility] Comment on above: Performed By: #### L 500.2500, L100.0100 ####[facility] [address] [place], [address] RBC (Bld) [#/Vol] 3.98 10*6/uL Low 4.6-6.2 [facility] Comment on above: Performed By: #### L 500.2500, L100.0100 ####[facility] [address] [place], [address] RDW SD 49.5 fl High 35.1-43.9 [facility] Comment on above: Performed By: #### L 500.2500, L100.0100 ####[facility] [address] [place], [address] WBC (Bld) [#/Vol] 10.3 10*3/uL Normal 4.4-11.0 [facility] Comment on above: Performed By: #### L 500.2500, L100.0100 ####[facility] [address] [place], [address] 36on 01-21-2024 36 Patient called to in form me he is in the hospital and will not be able to make his radiology appointment tomorrow. I told patient I will call and cancel for him and gave him the number to call and reschedule when he is ready. Normal [facility] Bedside Glucoseon 01-21-2024 FINGERSTICK GLU 136 mg/dL High 74-106 [facility] Comment on above: Result Comment: ANI GEMENT OF PATIENT CARE PER NURSING PROTOCOL Performed By: #### L 501.080 ####[facility] [address] [place], [address] FINGERSTICK GLU 151 mg/dL High 74-106 [facility] Comment on above: Result Comment: ANI GEMENT OF PATIENT CARE PER NURSING PROTOCOL Performed By: #### L 501.080 ####[facility] [address] [place], [address] FINGERSTICK GLU 152 mg/dL High 74-106 [facility] Comment on above: Result Comment: ANI GEMENT OF PATIENT CARE PER NURSING PROTOCOL Performed By: #### L 501.080 ####[facility] [address] [place], [address] FINGERSTICK GLU 126 mg/dL High 74-106 [facility] Comment on above: Result Comment: ANI BRADFORD OF PATIENT CARE PER NURSING PROTOCOL Performed By: #### L 501.080 ####[facility] [address] [place], [place], [address] CTA Chest W/WO Contraston CTA Chest W/WO Contrast Normal [facility] D-Dimer Quantitative (DVT/PE )on 01-21-2024 D-DIMER QUANT 2.48 FEU/ug/m Invalid Interpretation Code 0.27-0.49 [facility] Comment on above: Result Comment: D-Di tania ELEVATED (>0.49): Additional studies and clinicalassessments are indicated to conclude diagnosis of:Deep Vein Thrombosis (DVT) or Pulmonary Embolism (PE)CRITICAL VALUE CALLED TO VLWIDH90/22/24 0323 Hipolito Mitchell.RESULTS READ BACK BY SAME. Performed By: #### L 300.8000 ####[facility] [address] [place], [place], [address] Emergency Department Summary on 01-21-2024 Emergency Department Summary Normal [facility] Ferritinon 01-21-2024 Ferritin [Mass/Vol] 53 ng/mL Normal 26-388 [facility] Comment on above: Performed By: #### L 503.6030, L503.6550 ####[facility] [address] [place], [address] H AND P Exam - Hospitaliston 01-21-2024 H&P Exam - Hospitalist Normal [facility] Hemoglobin A1con 01-21-2024 HbA1c (Bld) [Mass fraction] 8.0 % High 3.8-5.6 [facility] Comment on above: Result Comment: Norm al < 5.7 % Prediabetic 5.7 - 6.4 % Diabetic >or= 6.5 % Please note range changes. Performed By: #### L 501.9985 ####[facility] [address] [place], [place], [address] Iron+Iron Binding Capacityon 01-21-2024 Iron [Mass/Vol] 12 ug/dL Low 65-175 [facility] Comment on above: Performed By: #### L 503.6030, L503.6550 ####[facility] [address] [place], [address] IRON SATURATION 3.5 Low 15.0-55.0 [facility] Comment on above: Performed By: #### L 503.6030, L503.6550 ####[facility] [address] [place], [address] TIBC 347 ug/dL Normal 250-450 [facility] Comment on above: Performed By: #### L 503.6030, L503.6550 ####[facility] [address] [place], [address] Lactic Acidon 01-21-2024 Lactate [Moles/Vol] 1.6 mmol/L Normal 0.4-1.9 [facility] Comment on above: Order Comment: Y Performed By: #### L 503.6005 ####[facility] [address] [place], [address] Legionella Antigen Urineon 1 LEGU Normal [facility] Comment on above: Performed By: #### M 300.4600, M300.4500 ####[facility] [address] [place], [address] RESPIRATORY PANEL MOLECULARo n 01-21-2024 RP PANEL Normal [facility] Comment on above: Performed By: #### M 100.638 ####[facility] [address] [place], [address] Strep pneumoniae Antig(UR,CS F)on 01-21-2024 STPAG Normal [facility] Comment on above: Performed By: #### M 300.4600, M300.4500 ####[facility] [address] [place], [address] Venous Duplex US - Adam Extre mon 01-21-2024 Venous Duplex US - Adam Extrem Normal [facility] 12 Lead EKGon 01-20-2024 12 Lead EKG Normal [facility] BNP,B-Type NATRIURETIC PEPTI Sindy 01-20-2024 Natriuretic peptide B (Bld) [Mass/Vol] 130.8 pg/mL High 0-100 [facility] Comment on above: Performed By: #### L 501.5200, L503.6620 ####[facility] [address] [place], [address] Basic Metabolic Profile (BMP )on 01-20-2024 BUN/CRE 23.4 RATIO High -20 [facility] Comment on above: Order Comment: 'TROP ' Serial specimen #1, #2 or #3: 1 Performed By: #### L 501.4020, L500.2500, L100.0100 ####[facility] [address] [place], [address] CA,Total 9.0 mg/dL Normal 8.5-10.1 [facility] Comment on above: Order Comment: 'TROP ' Serial specimen #1, #2 or #3: 1 Performed By: #### L 501.4020, L500.2500, L100.0100 ####[facility] [address] [place], [address] Chloride [Moles/Vol] 107 mmol/L Normal 98-107 [facility] Comment on above: Order Comment: 'TROP ' Serial specimen #1, #2 or #3: 1 Performed By: #### L 501.4020, L500.2500, L100.0100 ####[facility] [address] [place], [address] CO2 [Moles/Vol] 22.0 mmol/L Normal 21.0-32.0 [facility] Comment on above: Order Comment: 'TROP ' Serial specimen #1, #2 or #3: 1 Performed By: #### L 501.4020, L500.2500, L100.0100 ####[facility] [address] [place], [address] Creatinine [Mass/Vol] 1.24 mg/dL Normal 0.70-1.30 [facility] Comment on above: Order Comment: 'TROP ' Serial specimen #1, #2 or #3: 1 Result Comment: The validity of the calculated GFR GFRAA in patients over70 years has not been determined. Clinical correlation isessential. Performed By: #### L 501.4020, L500.2500, L100.0100 ####[facility] [address] [place], [address] ECRCL 90.85 ml/min Normal [facility] Comment on above: Order Comment: 'TROP ' Serial specimen #1, #2 or #3: 1 Performed By: #### L 501.4020, L500.2500, L100.0100 ####[facility] [address] [place], [address] EST GFR - AA 76 mL/min Normal >60 [facility] Comment on above: Order Comment: 'TROP ' Serial specimen #1, #2 or #3: 1 Result Comment: Afri can Gu[place]ian GFR Calc Performed By: #### L 501.4020, L500.2500, L100.0100 ####[facility] [address] [place], [address] GAP 6 Normal 5-15 [facility] Comment on above: Order Comment: 'TROP ' Serial specimen #1, #2 or #3: 1 Performed By: #### L 501.4020, L500.2500, L100.0100 ####[facility] [address] [place], [address] GFR/1.73 sq M.predicted among non-blacks MDRD (S/P/Bld) [Vol rate/Area] 63 mL/min/{1.73_m2} Normal >60 [facility] Comment on above: Order Comment: 'TROP ' Serial specimen #1, #2 or #3: 1 Result Comment: Non- GFR Calc Performed By: #### L 501.4020, L500.2500, L100.0100 ####[facility] [address] [place], [address] Glucose [Mass/Vol] 196 mg/dL High 74-106 [facility] [place] Comment on above: Order Comment: 'TROP ' Serial specimen #1, #2 or #3: 1 Result Comment: Fast ing Glucose result greater than or equal to 126 mg/dLsuggests DIABETES MELLITUS per A.D.A. criteria. Performed By: #### L 501.4020, L500.2500, L100.0100 ####[facility] [address] [place], [address] Potassium [Moles/Vol] 4.3 mmol/L Normal 3.5-5.1 [facility] Comment on above: Order Comment: 'TROP ' Serial specimen #1, #2 or #3: 1 Result Comment: Mode rate Hemolysis, Result may be falsely increased. Performed By: #### L 501.4020, L500.2500, L100.0100 ####[facility] [address] [place], [address] Sodium [Moles/Vol] 135 mmol/L Low 136-145 [facility] [place] Comment on above: Order Comment: 'TROP ' Serial specimen #1, #2 or #3: 1 Performed By: #### L 501.4020, L500.2500, L100.0100 ####[facility] [address] [place], [address] Urea nitrogen [Mass/Vol] 29 mg/dL High 7-18 [facility] Comment on above: Order Comment: 'TROP ' Serial specimen #1, #2 or #3: 1 Performed By: #### L 501.4020, L500.2500, L100.0100 ####[facility] [address] [place], [address] CBC W/Diff, Automatedon 10-2 -2023 Absolute Lymph 1.71 X10 3/uL Normal 0.83-4.51 [facility] Comment on above: Performed By: #### L 501.4020, L500.2500, L100.0100 ####[facility] [address] [place], [address] Absolute Neut 7.0 X10 3/uL Normal 2.0-7.7 [facility] Comment on above: Performed By: #### L 501.4020, L500.2500, L100.0100 ####[facility] [address] [place], [address] Basophils/100 WBC (Bld) 0.7 % Normal 0-1 [facility] Comment on above: Performed By: #### L 501.4020, L500.2500, L100.0100 ####[facility] [address] [place], [address] Eosinophils/100 WBC (Bld) 2.9 % Normal 0-5 [facility] Comment on above: Performed By: #### L 501.4020, L500.2500, L100.0100 ####[facility] [address] [place], [address] Erythrocyte distribution width (RBC) [Ratio] 17.1 % High 11.6-14.6 [facility] Comment on above: Performed By: #### L 501.4020, L500.2500, L100.0100 ####[facility] [address] [place], [address] Hematocrit (Bld) [Volume fraction] 31.1 % Low 40-54 [facility] Comment on above: Performed By: #### L 501.4020, L500.2500, L100.0100 ####[facility] [address] [place], [address] Hemoglobin (Bld) [Mass/Vol] 9.5 g/dL Low 13.0-16.5 [facility] Comment on above: Performed By: #### L 501.4020, L500.2500, L100.0100 ####[facility] [address] [place], [address] IG% 0.500 Normal 0.0-0.9 [facility] Comment on above: Result Comment: IG% - Immature Granulocytes (promyelocytes, myelocytes andmetamyelocytes) > 1% indicates that a LEFT SHIFT is Present. Performed By: #### L 501.4020, L500.2500, L100.0100 ####[facility] [address] [place], [address] Lymphocytes/100 WBC (Bld) 16.8 % Low 19-41 [facility] Comment on above: Performed By: #### L 501.4020, L500.2500, L100.0100 ####[facility] [address] [place], [address] MCH (RBC) [Entitic mass] 23.4 pg Low 27.0-32.0 [facility] Comment on above: Performed By: #### L 501.4020, L500.2500, L100.0100 ####[facility] [address] [place], [address] MCHC (RBC) [Mass/Vol] 30.5 g/dL Low 32-36 [facility] Comment on above: Performed By: #### L 501.4020, L500.2500, L100.0100 ####[facility] [address] [place], [address] MCV (RBC) [Entitic vol] 76.6 fL Low 80-94 [facility] Comment on above: Performed By: #### L 501.4020, L500.2500, L100.0100 ####[facility] [address] [place], [address] Monocytes/100 WBC (Bld) 10.6 % High 0-10 [facility] Comment on above: Performed By: #### L 501.4020, L500.2500, L100.0100 ####[facility] [address] [place], [address] Neutrophils/100 WBC (Bld) 68.5 % Normal 47-70 [facility] Comment on above: Performed By: #### L 501.4020, L500.2500, L100.0100 ####[facility] [address] [place], [address] Nucleated RBC (Bld) [#/Vol] 0 10*3/uL Normal 0-5 [facility] Comment on above: Performed By: #### L 501.4020, L500.2500, L100.0100 ####[facility] [address] [place], [address] Platelet mean volume (Bld) [Entitic vol] 9.5 fL Normal 6.2-12.0 [facility] Comment on above: Performed By: #### L 501.4020, L500.2500, L100.0100 ####[facility] [address] [place], [address] Platelets (Bld) [#/Vol] 267 10*3/uL Normal 150-450 [facility] Comment on above: Performed By: #### L 501.4020, L500.2500, L100.0100 ####[facility] [address] [place], [address] RBC (Bld) [#/Vol] 4.06 10*6/uL Low 4.6-6.2 [facility] Comment on above: Performed By: #### L 501.4020, L500.2500, L100.0100 ####[facility] [address] [place], [address] RDW SD 47.4 fl High 35.1-43.9 [facility] Comment on above: Performed By: #### L 501.4020, L500.2500, L100.0100 ####[facility] [address] [place], [address] WBC (Bld) [#/Vol] 10.2 10*3/uL Normal 4.4-11.0 [facility] Comment on above: Performed By: #### L 501.4020, L500.2500, L100.0100 ####[facility] [address] [place], [address] Chest PA and Lateralon 01-19 Chest PA and Lateral Normal [facility] L501.4020on 01-20-2024 TROPONIN-I HS 24 pg/mL Normal 3.0-78.0 [facility] Comment on above: Order Comment: 'TROP ' Serial specimen #1, #2 or #3: 1 Result Comment: Plea se Note: New Test Units and Gender Specific Reference Ranges. For more information see Policy Stat Procedure [place] High Sensitivity Troponin (TNIH) and attachments. Performed By: #### L 501.4020, L500.2500, L100.0100 ####[facility] [address] [place], [address] M100.678on 01-20-2024 M100.678 Pending SARS-CoV-2 (COVID 19) Negative INFLUENZA A Negative INFLUENZA B Negative RSV PCR Negative Normal [facility] Comment on above: Performed By: #### M 100.678 ####[facility] [address] [place], [address] Magnesiumon 01-20-2024 Magnesium [Mass/Vol] 1.7 mg/dL Normal 1.6-2.6 [facility] Comment on above: Result Comment: Mode rate Hemolysis, Result may be falsely increased. Performed By: #### L 501.5200, L503.6620 ####[facility] [address] [place], [place], [address] Office Visit Reporton 2023 Office Visit Report Normal [facility] 36on 01-15-2024 36 Called patient to in form him of his appointment for CTA ordered by Dr. Culp. Patient verbalized understanding appointment schduled for 01/22/2024 at 1045 at the [place] location. Patient instructed to stop eating 4 hours prior to testing and to drink 16oz water 1 hour prior. Patient questioned if we received imaging from [facility]. Will follow up to confirm they are uploaded to PACS. [facility] 36on 01-10-2024 36 [phone] submitted through ev[employer] phone call [facility] CBC W/Diff, Automatedon 12-30 Absolute Lymph 1.87 X10 3/uL Normal 0.83-4.51 [facility] Comment on above: Order Comment: Order Date: 01/10/24Order Info: [id number] - CBCDOrder Info: 4679-7 - RETIC Performed By: #### L 503.6150, L100.9950, L503.0105, L503.6075, L100.0100, L506.0250, L503.6550 ####[facility] [address] [place], [address] Absolute Neut 5.7 X10 3/uL Normal 2.0-7.7 [facility] Comment on above: Order Comment: Order Date: 01/10/24Order Info: [id number] - CBCDOrder Info: 4679-7 - RETIC Performed By: #### L 503.6150, L100.9950, L503.0105, L503.6075, L100.0100, L506.0250, L503.6550 ####[facility] [address] [place], [address] Basophils/100 WBC (Bld) 0.8 % Normal 0-1 [facility] Comment on above: Order Comment: Order Date: 01/10/24Order Info: 018- - CBCDOrder Info: 4679-7 - RETIC Performed By: #### L 503.6150, L100.9950, L503.0105, L503.6075, L100.0100, L506.0250, L503.6550 ####[facility] [address] [place], [address] Eosinophils/100 WBC (Bld) 2.6 % Normal 0-5 [facility] Comment on above: Order Comment: Order Date: 01/10/24Order Info: [id number] - CBCDOrder Info: 4679-7 - RETIC Performed By: #### L 503.6150, L100.9950, L503.0105, L503.6075, L100.0100, L506.0250, L503.6550 ####[facility] [address] [place], [address] Erythrocyte distribution width (RBC) [Ratio] 17.3 % High 11.6-14.6 [facility] Comment on above: Order Comment: Order Date: 01/10/24Order Info: 01806-30 - CBCDOrder Info: 4679-7 - RETIC Performed By: #### L 503.6150, L100.9950, L503.0105, L503.6075, L100.0100, L506.0250, L503.6550 ####[facility] [address] [place], [address] Hematocrit (Bld) [Volume fraction] 37.0 % Low 40-54 [facility] Comment on above: Order Comment: Order Date: 01/10/24Order Info: 01806-30 - CBCDOrder Info: 4679-7 - RETIC Performed By: #### L 503.6150, L100.9950, L503.0105, L503.6075, L100.0100, L506.0250, L503.6550 ####[facility] [address] [place], [address] Hemoglobin (Bld) [Mass/Vol] 10.7 g/dL Low 13.0-16.5 [facility] Comment on above: Order Comment: Order Date: 01/10/24Order Info: 018- - CBCDOrder Info: 4679-7 - RETIC Performed By: #### L 503.6150, L100.9950, L503.0105, L503.6075, L100.0100, L506.0250, L503.6550 ####[facility] [address] [place], [address] IG% 0.300 Normal 0.0-0.9 [facility] Comment on above: Order Comment: Order Date: 01/10/24Order Info: [id number] - CBCDOrder Info: 4679-7 - RETIC Result Comment: IG% - Immature Granulocytes (promyelocytes, myelocytes andmetamyelocytes) > 1% indicates that a LEFT SHIFT is Present. Performed By: #### L 503.6150, L100.9950, L503.0105, L503.6075, L100.0100, L506.0250, L503.6550 ####[facility] [address] [place], [address] Lymphocytes/100 WBC (Bld) 21.4 % Normal 19-41 [facility] Comment on above: Order Comment: Order Date: 01/10/24Order Info: 01806-30 - CBCDOrder Info: 4679-7 - RETIC Performed By: #### L 503.6150, L100.9950, L503.0105, L503.6075, L100.0100, L506.0250, L503.6550 ####[facility] [address] [place], [place], [phone] MCH (RBC) [Entitic mass] 22.8 pg Low 27.0-32.0 [facility] Comment on above: Order Comment: Order Date: 01/10/24Order Info: 018- - CBCDOrder Info: 4679-7 - RETIC Performed By: #### L 503.6150, L100.9950, L503.0105, L503.6075, L100.0100, L506.0250, L503.6550 ####[facility] [address] [place], [address] MCHC (RBC) [Mass/Vol] 28.9 g/dL Low 32-36 [facility] Comment on above: Order Comment: Order Date: 01/10/24Order Info: 01806-30 - CBCDOrder Info: 4679-7 - RETIC Performed By: #### L 503.6150, L100.9950, L503.0105, L503.6075, L100.0100, L506.0250, L503.6550 ####[facility] [address] [place], [address] MCV (RBC) [Entitic vol] 78.7 fL Low 80-94 [facility] Comment on above: Order Comment: Order Date: 01/10/24Order Info: 01806-30 - CBCDOrder Info: [id number] - RETIC Performed By: #### L 503.6150, L100.9950, L503.0105, L503.6075, L100.0100, L506.0250, L503.6550 ####[facility] [address] [place], [address] Monocytes/100 WBC (Bld) 9.9 % Normal 0-10 [facility] Comment on above: Order Comment: Order Date: 01/10/24Order Info: [id number] - CBCDOrder Info: [id number] - RETIC Performed By: #### L 503.6150, L100.9950, L503.0105, L503.6075, L100.0100, L506.0250, L503.6550 ####[facility] [address] [place], [address] Neutrophils/100 WBC (Bld) 65.0 % Normal 47-70 [facility] Comment on above: Order Comment: Order Date: 01/10/24Order Info: 018- - CBCDOrder Info: [id number] - RETIC Performed By: #### L 503.6150, L100.9950, L503.0105, L503.6075, L100.0100, L506.0250, L503.6550 ####[facility] [address] [place], [address] Nucleated RBC (Bld) [#/Vol] 0 10*3/uL Normal 0-5 [facility] Comment on above: Order Comment: Order Date: 01/10/24Order Info: 018- - CBCDOrder Info: [id number] - RETIC Performed By: #### L 503.6150, L100.9950, L503.0105, L503.6075, L100.0100, L506.0250, L503.6550 ####[facility] [address] [place], [address] Platelet mean volume (Bld) [Entitic vol] 10.2 fL Normal 6.2-12.0 [facility] Comment on above: Order Comment: Order Date: 01/10/24Order Info: 018- - CBCDOrder Info: [id number] - RETIC Performed By: #### L 503.6150, L100.9950, L503.0105, L503.6075, L100.0100, L506.0250, L503.6550 ####[facility] [address] [place], [address] Platelets (Bld) [#/Vol] 306 10*3/uL Normal 150-450 [facility] Comment on above: Order Comment: Order Date: 01/10/24Order Info: 018- - CBCDOrder Info: [id number] - RETIC Performed By: #### L 503.6150, L100.9950, L503.0105, L503.6075, L100.0100, L506.0250, L503.6550 ####[facility] [address] [place], [address] RBC (Bld) [#/Vol] 4.70 10*6/uL Normal 4.6-6.2 [facility] Comment on above: Order Comment: Order Date: 01/10/24Order Info: 0184-1 - CBCDOrder Info: 4679-7 - RETIC Performed By: #### L 503.6150, L100.9950, L503.0105, L503.6075, L100.0100, L506.0250, L503.6550 ####[facility] [address] [place], [address] RDW SD 49.7 fl High 35.1-43.9 [facility] Comment on above: Order Comment: Order Date: 01/10/24Order Info: 018- - CBCDOrder Info: 4679-7 - RETIC Performed By: #### L 503.6150, L100.9950, L503.0105, L503.6075, L100.0100, L506.0250, L503.6550 ####[facility] [address] [place], [address] WBC (Bld) [#/Vol] 8.7 10*3/uL Normal 4.4-11.0 [facility] Comment on above: Order Comment: Order Date: 01/10/24Order Info: 0184-1 - CBCDOrder Info: 4679-7 - RETIC Performed By: #### L 503.6150, L100.9950, L503.0105, L503.6075, L100.0100, L506.0250, L503.6550 ####[facility] [address] [place], [address] Ferritinon 01-10-2024 Ferritin [Mass/Vol] 28 ng/mL Normal 26-388 [facility] Comment on above: Order Comment: Order Date: 01/10/24Order Info: 2499-09 - TIBCOrder Info: 2497-06 - FEOrder Info: 2275-07 - FEROrder Info: 2283-10 - FOLSN Performed By: #### L 503.6150, L100.9950, L503.0105, L503.6075, L100.0100, L506.0250, L503.6550 ####[facility] [address] [place], [address] Folates, (Folic Acid)on 12-30 FOLATES 5.30 ng/mL Normal 3.1-55.4 [facility] Comment on above: Order Comment: Order Date: 01/10/24Order Info: [id number] - TIBCOrder Info: 2497-06 - FEOrder Info: 2275-07 - FEROrder Info: 2283-10 - FOLSN Performed By: #### L 503.6150, L100.9950, L503.0105, L503.6075, L100.0100, L506.0250, L503.6550 ####[facility] [address] [place], [address] Ironon 01-10-2024 Iron [Mass/Vol] 31 ug/dL Low 65-175 [facility] Comment on above: Order Comment: Order Date: 01/10/24Order Info: 2499-09 - TIBCOrder Info: 2497-06 - FEOrder Info: 2275-07 - FEROrder Info: 2283-10 - FOLSN Performed By: #### L 503.6150, L100.9950, L503.0105, L503.6075, L100.0100, L506.0250, L503.6550 ####[facility] [address] [place], [place], [phone] Iron Binding Capacity,Totalo n 01-10-2024 TIBC 445 ug/dL Normal 250-450 [facility] Comment on above: Order Comment: Order Date: 01/10/24Order Info: 2499-7 - TIBCOrder Info: 2498-4 - FEOrder Info: 2276-4 - FEROrder Info: 2284-8 - FOLSN Performed By: #### L 503.6150, L100.9950, L503.0105, L503.6075, L100.0100, L506.0250, L503.6550 ####[facility] [address] [place], [address] Retic Panelon 01-10-2024 IM RET FRACTION 26.40 High 3.00-15.90 [facility] Comment on above: Order Comment: Order Date: 01/10/24Order Info: [id number] - CBCDOrder Info: [id number] - RETIC Performed By: #### L 503.6150, L100.9950, L503.0105, L503.6075, L100.0100, L506.0250, L503.6550 ####[facility] [address] [place], [place], [address] RET-HE 22.0 pg Low 30-35 [facility] Comment on above: Order Comment: Order Date: 01/10/24Order Info: 183-04 - CBCDOrder Info: 4679-7 - RETIC Performed By: #### L 503.6150, L100.9950, L503.0105, L503.6075, L100.0100, L506.0250, L503.6550 ####[facility] [address] [place], [place], [phone] Retic Count 2.36 High 0.5-1.5 [facility] Comment on above: Order Comment: Order Date: 01/10/24Order Info: [id number] - CBCDOrder Info: 4679-7 - RETIC Performed By: #### L 503.6150, L100.9950, L503.0105, L503.6075, L100.0100, L506.0250, L503.6550 ####[facility] [address] [place], [address] Vitamin B12on 01-10-2024 Cobalamin (Vitamin B12) [Mass/Vol] 510 pg/mL Normal 211-911 [facility] Comment on above: Order Comment: Order Date: 01/10/24Order Info: 2132-9 - B12 Performed By: #### L 503.6150, L100.9950, L503.0105, L503.6075, L100.0100, L506.0250, L503.6550 ####[facility] [address] [place], [address] Office Visiton 01-06-2024 Follow-up visit [id number] Krunal Leos 1965 M Date Provider Department Center 01/06/2024 62448-YPONXBCXLOZIEL CULP [facility] NRO None No family history on file Level of Service:82823 AL OFFICE/OUTPATIENT ESTABLISHED MOD MDM 30 MIN Reason for Visit and Comments: New Patient [542] - New stroke 10/02, multiple mini strokes since. No current deficits per patient. Normal [facility] Progress Noteon 01-06-2024 Progress Note History of Present Illness: 58 yo man here for fu stroke and bilateral ICA stenosis. He originally presented 09/2023 for left hemiparesis and was transferred to [facility] from [facility]. He was found to have right hemispheric watershed strokes and also bilateral carotid artery disease (<50%). He was already on Eliquis for atrial fibrillation and ASA was initiated. He mostly returned to normal and was discharged to home. Of note he has a history of cancer and is s/p chemotherapy and neck radiation. He was doing well until 10/2023 when he had another episode of left hemiparesis. He went to [facility] and was found to have increased stroke burden of the right hemisphere. Vascular surgery was consulted and no surgical procedure was recommended. He had a 3rd event of left hemiparesis the following week and a CT was done at [place] [facility]. At that time clopidogrel was added (in addition to ASA and Eliquis). The patient returned to normal and was discharged from the ED to home. 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 He is a nonsmoker. He does report some new SOB over the last week or so, and has plans to see his PCP. PMHx: As above. History reviewed. No pertinent past medical history. Current Outpatient Medications: amLODIPine (Norvasc) 5 MG tablet, Take 5 mg by mouth daily., Disp: , Rfl: apixaban (Eliquis) 5 MG tablet, Take 1 tablet (5 mg) by mouth 2 times daily., Disp: 60 tablet, Rfl: 0 aspirin 325 MG tablet, Take 325 mg by mouth in the morning., Disp: , Rfl: clopidogrel (Plavix) 75 MG tablet, Take 75 mg by mouth daily., Disp: , Rfl: Continuous Glucose Sensor (Dexcom G6 Sensor) misc, Dexcom G6 Sensor Mis, USE DIRECTED FOR CONTINUOUS BLOOD GLUCOSE MONITORING, CHANGE SENSOR EVERY 10 DAYS, Disp: , Rfl: dapagliflozin (Farxiga) 5 MG tablet, Take 1 tablet (5 mg) by mouth daily. Do not start before October 06, 2023., Disp: 30 tablet, Rfl: 0 DULoxetine (Cymbalta) [address] capsule, Take 1 capsule (60 mg) by mouth daily. Do not crush or chew. Do not start before October 06, 2023., Disp: 30 capsule, Rfl: 0 fenofibrate (Tricor) 54 MG tablet, , Disp: , Rfl: furosemide (Lasix) 40 MG tablet, Take 1 tablet (40 mg) by mouth in the morning and 1 tablet (40 mg) in the evening., Disp: 60 tablet, Rfl: 0 glipiZIDE (Glucotrol) 5 MG tablet, Take 1 tablet (5 mg) by mouth every morning (before breakfast). Do not start before October 06, 2023., Disp: 30 tablet, Rfl: 0 HYDROcodone-acetaminophen (Billings) 5-325 MG tablet, Take 1 tablet by mouth 2-3 times daily as needed for pain, Disp: , Rfl: Jardiance 25 MG, 25 mg., Disp: , Rfl: levothyroxine (Synthroid, Levoxyl) 112 MCG tablet, Take 1 tablet (112 mcg) by mouth every morning (before breakfast). Do not start before October 06, 2023., Disp: 30 tablet, Rfl: 0 metoprolol succinate XL (Toprol-XL) 100 MG 24 hr tablet, Take 1 tablet (100 mg) by mouth daily. Do not crush or chew. Do not start before October 06, 2023., Disp: 30 tablet, Rfl: 0 pantoprazole (ProtoNix) 40 MG EC tablet, Take 1 tablet (40 mg) by mouth every morning (before breakfast). Do not crush, chew, or split. Do not start before October 06, 2023., Disp: 30 tablet, Rfl: 0 tamsulosin (Flomax) 0.4 MG 24 hr capsule, Take 0.4 mg by mouth daily., Disp: , Rfl: aspirin 81 MG chewable tablet, 81 mg., Disp: , Rfl: atorvastatin (Lipitor) 80 MG tablet, Take 1 tablet (80 mg) by mouth Nightly., Disp: 30 tablet, Rfl: 0 betamethasone, augmented, (Diprolene) 0.05 % lotion, APPLY TO RASH ON THE TRUNK OR SCALP 1-2 TIMES DAILY NEEDED, Disp: , Rfl: busPIRone (Buspar) 10 MG tablet, Take 1 tablet (10 mg) by mouth 3 times daily., Disp: 90 tablet, Rfl: 0 dilTIAZem CD (Cardizem CD) 120 MG 24 hr capsule, Take 120 mg by mouth daily., Disp: , Rfl: doxycycline (Vibramycin) 100 MG capsule, Take 100 mg by mouth 2 times daily., Disp: , Rfl: ergocalciferol (Vitamin D2) 1.25 MG (27857 UT) capsule, Take 1 capsule by mouth 1 (one) time per week., Disp: , Rfl: glimepiride (Amaryl) 4 MG tablet, Take 4 mg by mouth daily., Disp: , Rfl: insulin regular (HumuLIN R,NovoLIN R) 100 UNIT/ML injection, Inject 0.2 mL (20 Units) under the skin in the morning and 0.2 mL (20 Units) at noon and 0.2 mL (20 Units) in the evening. Inject with meals., Disp: 18 mL, Rfl: 0 metFORMIN (Glucophage) 500 MG tablet, Take 500 mg by mouth in the morning and 500 mg in the evening. Take with meals., Disp: , Rfl: potassium citrate CR (Urocit-K-10) 10 mEq ER tablet, Take 10 mEq by mouth 2 times daily., Disp: , Rfl: spironolactone (Aldactone) 50 MG tablet, Take 50 mg by mouth daily., Disp: , Rfl: traMADol (Ultram) 50 MG tablet, Take 50 mg by mouth., Disp: , Rfl: . Social History Tobacco Use Smoking status: Never Smokeless tobacco: Never Substance Use Topics Alcohol use: Not Currently No family history on file. Review of Systems Constitutional: Negative. HENT: Negative. Eyes: Negative. Respirato (more content not included)... Normal [facility] Stress Reporton 01-01-2024 Stress Report Normal [facility] Pulmonary Visit Reporton Pulmonary Visit Report Normal [facility] Office Visit Reporton 2023 Office Visit Report Normal [facility] BNP,B-Type NATRIURETIC PEPTI Sindy 12-12-2023 Natriuretic peptide B (Bld) [Mass/Vol] 92.2 pg/mL Normal 0-100 [facility] Comment on above: Performed By: #### L 500.4050, L501.5200, L100.0100, L503.6620, L506.0400, L501.9520 ####[facility] [address] [place], [address] CBC W/Diff, Automatedon 11-30 Absolute Lymph 1.70 X10 3/uL Normal 0.83-4.51 [facility] Comment on above: Performed By: #### L 500.4050, L501.5200, L100.0100, L503.6620, L506.0400, L501.9520 ####[facility] [address] [place], [address] Absolute Neut 5.8 X10 3/uL Normal 2.0-7.7 [facility] Comment on above: Performed By: #### L 500.4050, L501.5200, L100.0100, L503.6620, L506.0400, L501.9520 ####[facility] [address] [place], [address] Basophils/100 WBC (Bld) 0.8 % Normal 0-1 [facility] Comment on above: Performed By: #### L 500.4050, L501.5200, L100.0100, L503.6620, L506.0400, L501.9520 ####[facility] [address] [place], [address] Eosinophils/100 WBC (Bld) 2.8 % Normal 0-5 [facility] Comment on above: Performed By: #### L 500.4050, L501.5200, L100.0100, L503.6620, L506.0400, L501.9520 ####[facility] [address] [place], [address] Erythrocyte distribution width (RBC) [Ratio] 18.5 % High 11.6-14.6 [facility] Comment on above: Performed By: #### L 500.4050, L501.5200, L100.0100, L503.6620, L506.0400, L501.9520 ####[facility] [address] [place], [address] Hematocrit (Bld) [Volume fraction] 33.3 % Low 40-54 [facility] Comment on above: Performed By: #### L 500.4050, L501.5200, L100.0100, L503.6620, L506.0400, L501.9520 ####[facility] [address] [place], [address] Hemoglobin (Bld) [Mass/Vol] 10.0 g/dL Low 13.0-16.5 [facility] Comment on above: Performed By: #### L 500.4050, L501.5200, L100.0100, L503.6620, L506.0400, L501.9520 ####[facility] [address] [place], [address] IG% 0.500 Normal 0.0-0.9 [facility] Comment on above: Result Comment: IG% - Immature Granulocytes (promyelocytes, myelocytes andmetamyelocytes) > 1% indicates that a LEFT SHIFT is Present. Performed By: #### L 500.4050, L501.5200, L100.0100, L503.6620, L506.0400, L501.9520 ####[facility] [address] [place], [address] Lymphocytes/100 WBC (Bld) 19.6 % Normal 19-41 [facility] Comment on above: Performed By: #### L 500.4050, L501.5200, L100.0100, L503.6620, L506.0400, L501.9520 ####[facility] [address] [place], [address] MCH (RBC) [Entitic mass] 23.9 pg Low 27.0-32.0 [facility] Comment on above: Performed By: #### L 500.4050, L501.5200, L100.0100, L503.6620, L506.0400, L501.9520 ####[facility] [address] [place], [address] MCHC (RBC) [Mass/Vol] 30.0 g/dL Low 32-36 [facility] Comment on above: Performed By: #### L 500.4050, L501.5200, L100.0100, L503.6620, L506.0400, L501.9520 ####[facility] [address] [place], [address] MCV (RBC) [Entitic vol] 79.7 fL Low 80-94 [facility] Comment on above: Performed By: #### L 500.4050, L501.5200, L100.0100, L503.6620, L506.0400, L501.9520 ####[facility] [address] [place], [address] Monocytes/100 WBC (Bld) 9.9 % Normal 0-10 [facility] Comment on above: Performed By: #### L 500.4050, L501.5200, L100.0100, L503.6620, L506.0400, L501.9520 ####[facility] [address] [place], [address] Neutrophils/100 WBC (Bld) 66.4 % Normal 47-70 [facility] Comment on above: Performed By: #### L 500.4050, L501.5200, L100.0100, L503.6620, L506.0400, L501.9520 ####[facility] [address] [place], [address] Nucleated RBC (Bld) [#/Vol] 0 10*3/uL Normal 0-5 [facility] Comment on above: Performed By: #### L 500.4050, L501.5200, L100.0100, L503.6620, L506.0400, L501.9520 ####[facility] [address] [place], [address] Platelet mean volume (Bld) [Entitic vol] 9.9 fL Normal 6.2-12.0 [facility] Comment on above: Performed By: #### L 500.4050, L501.5200, L100.0100, L503.6620, L506.0400, L501.9520 ####[facility] [address] [place], [address] Platelets (Bld) [#/Vol] 274 10*3/uL Normal 150-450 [facility] Comment on above: Performed By: #### L 500.4050, L501.5200, L100.0100, L503.6620, L506.0400, L501.9520 ####[facility] [address] [place], [address] RBC (Bld) [#/Vol] 4.18 10*6/uL Low 4.6-6.2 [facility] Comment on above: Performed By: #### L 500.4050, L501.5200, L100.0100, L503.6620, L506.0400, L501.9520 ####[facility] [address] [place], [address] RDW SD 52.7 fl High 35.1-43.9 [facility] Comment on above: Performed By: #### L 500.4050, L501.5200, L100.0100, L503.6620, L506.0400, L501.9520 ####[facility] [address] [place], [place], [phone]([phone] WBC (Bld) [#/Vol] 8.7 10*3/uL Normal 4.4-11.0 [facility] Comment on above: Performed By: #### L 500.4050, L501.5200, L100.0100, L503.6620, L506.0400, L501.9520 ####[facility] [address] [place], [address] Comprehensive Metabolic [facility] 12-12-2023 Albumin [Mass/Vol] 3.2 g/dL Normal 3.2-5.0 [facility] Comment on above: Performed By: #### L 500.4050, L501.5200, L100.0100, L503.6620, L506.0400, L501.9520 ####[facility] [address] [place], [address] Albumin/Globulin [Mass ratio] 0.7 {ratio} Low 0.9-2.4 [facility] Comment on above: Performed By: #### L 500.4050, L501.5200, L100.0100, L503.6620, L506.0400, L501.9520 ####[facility] [address] [place], [address] ALK P 79 U/L Normal 45-117 [facility] Comment on above: Performed By: #### L 500.4050, L501.5200, L100.0100, L503.6620, L506.0400, L501.9520 ####[facility] [address] [place], [address] ALT [Catalytic activity/Vol] 25 U/L Normal 16-61 [facility] Comment on above: Performed By: #### L 500.4050, L501.5200, L100.0100, L503.6620, L506.0400, L501.9520 ####[facility] [address] [place], [address] AST [Catalytic activity/Vol] 27 U/L Normal 15-37 [facility] Comment on above: Performed By: #### L 500.4050, L501.5200, L100.0100, L503.6620, L506.0400, L501.9520 ####[facility] [address] [place], [address] Bilirubin [Mass/Vol] 0.60 mg/dL Normal 0.20-1.00 [facility] Comment on above: Result Comment: For patients on eltrombopag therapy, use of Dimension [place] TBIL is not recommended. Performed By: #### L 500.4050, L501.5200, L100.0100, L503.6620, L506.0400, L501.9520 ####[facility] [address] [place], [address] BUN/CRE 21.7 RATIO High 10-20 [facility] Comment on above: Performed By: #### L 500.4050, L501.5200, L100.0100, L503.6620, L506.0400, L501.9520 ####[facility] [address] [place], [address] CA,Total 9.3 mg/dL Normal 8.5-10.1 [facility] Comment on above: Performed By: #### L 500.4050, L501.5200, L100.0100, L503.6620, L506.0400, L501.9520 ####[facility] [address] [place], [address] Chloride [Moles/Vol] 110 mmol/L High 98-107 [facility] Comment on above: Performed By: #### L 500.4050, L501.5200, L100.0100, L503.6620, L506.0400, L501.9520 ####[facility] [address] [place], [address] CO2 [Moles/Vol] 19.0 mmol/L Low 21.0-32.0 [facility] Comment on above: Performed By: #### L 500.4050, L501.5200, L100.0100, L503.6620, L506.0400, L501.9520 ####[facility] [address] [place], [address] Creatinine [Mass/Vol] 1.20 mg/dL Normal 0.70-1.30 [facility] Comment on above: Result Comment: The validity of the calculated GFR GFRAA in patients over70 years has not been determined. Clinical correlation isessential. Performed By: #### L 500.4050, L501.5200, L100.0100, L503.6620, L506.0400, L501.9520 ####[facility] [address] [place], [address] EST GFR - AA 79 mL/min Normal >60 [facility] Comment on above: Result Comment: Afri can [place] GFR Calc Performed By: #### L 500.4050, L501.5200, L100.0100, L503.6620, L506.0400, L501.9520 ####[facility] [address] [place], [address] GAP 10 Normal 5-15 [facility] Comment on above: Performed By: #### L 500.4050, L501.5200, L100.0100, L503.6620, L506.0400, L501.9520 ####[facility] [address] [place], [address] GFR/1.73 sq M.predicted among non-blacks MDRD (S/P/Bld) [Vol rate/Area] 66 mL/min/{1.73_m2} Normal >60 [facility] Comment on above: Result Comment: Non- GFR Calc Performed By: #### L 500.4050, L501.5200, L100.0100, L503.6620, L506.0400, L501.9520 ####[facility] [address] [place], [address] Globulin (S) [Mass/Vol] 4.9 g/dL High 2.2-4.2 [facility] Comment on above: Performed By: #### L 500.4050, L501.5200, L100.0100, L503.6620, L506.0400, L501.9520 ####[facility] [address] [place], [address] Glucose [Mass/Vol] 155 mg/dL High 74-106 [facility] Comment on above: Result Comment: Fast ing Glucose result greater than or equal to 126 mg/dLsuggests DIABETES MELLITUS per A.D.A. criteria. Performed By: #### L 500.4050, L501.5200, L100.0100, L503.6620, L506.0400, L501.9520 ####[facility] [address] [place], [address] Potassium [Moles/Vol] 3.9 mmol/L Normal 3.5-5.1 [facility] Comment on above: Performed By: #### L 500.4050, L501.5200, L100.0100, L503.6620, L506.0400, L501.9520 ####[facility] [address] [place], [address] Sodium [Moles/Vol] 139 mmol/L Normal 136-145 [facility] Comment on above: Performed By: #### L 500.4050, L501.5200, L100.0100, L503.6620, L506.0400, L501.9520 ####[facility] [address] [place], [address] T PROT 8.1 g/dL Normal 6.4-8.2 [facility] Comment on above: Performed By: #### L 500.4050, L501.5200, L100.0100, L503.6620, L506.0400, L501.9520 ####[facility] [address] [place], [address] Urea nitrogen [Mass/Vol] 26 mg/dL High 7-18 [facility] Comment on above: Performed By: #### L 500.4050, L501.5200, L100.0100, L503.6620, L506.0400, L501.9520 ####[facility] [address] [place], [address] Gastroenterology Visit Repor ton 12-12-2023 Gastroenterology Visit Report Normal [facility] Magnesiumon 12-12-2023 Magnesium [Mass/Vol] 2.1 mg/dL Normal 1.6-2.6 [facility] Comment on above: Performed By: #### L 500.4050, L501.5200, L100.0100, L503.6620, L506.0400, L501.9520 ####[facility] [address] [place], [address] T4 Free Directon 12-12-2023 T4 FREE DIRECT 1.29 ng/dL Normal 0.76-1.46 [facility] Comment on above: Performed By: #### L 500.4050, L501.5200, L100.0100, L503.6620, L506.0400, L501.9520 ####[facility] [address] [place], [address] Thyroid Stim Hormone (TSH)on 12-12-2023 TSH 0.800 uIU/mL Normal 0.358-3.74 0 [facility] Comment on above: Performed By: #### L 500.4050, L501.5200, L100.0100, L503.6620, L506.0400, L501.9520 ####[facility] [address] [place], [address] MR/BMS.BVSon 12-06-2023 MR/BMS.BVS Normal [facility] Endocrinology Visit Reporton 11-27-2023 Endocrinology Visit Report Normal [facility] Bedside Glucoseon 11-18-2023 FINGERSTICK GLU 103 mg/dL Normal 74-106 [facility] Comment on above: Result Comment: ANI BRADFORD OF PATIENT CARE PER NURSING PROTOCOL Performed By: #### L 501.080 ####[facility] [address] [place], [address] Office Visit Reporton 2023 Office Visit Report Normal [facility] 12 Lead EKGon 11-16-2023 12 Lead EKG Normal [facility] Basic Metabolic Profile (BMP )on 11-16-2023 BUN/CRE 18.2 RATIO Normal 10-20 [facility] Comment on above: Order Comment: 'TROP ' Serial specimen #1, #2 or #3: 1 Performed By: #### L 100.0100, L501.4020, L300.4310, L500.2500, L300.3900 ####[facility] [address] [place], [address] CA,Total 8.7 mg/dL Normal 8.5-10.1 [facility] Comment on above: Order Comment: 'TROP ' Serial specimen #1, #2 or #3: 1 Performed By: #### L 100.0100, L501.4020, L300.4310, L500.2500, L300.3900 ####[facility] [address] [place], [address] Chloride [Moles/Vol] 107 mmol/L Normal 98-107 [facility] Comment on above: Order Comment: 'TROP ' Serial specimen #1, #2 or #3: 1 Performed By: #### L 100.0100, L501.4020, L300.4310, L500.2500, L300.3900 ####[facility] [address] [place], [address] CO2 [Moles/Vol] 27.0 mmol/L Normal 21.0-32.0 [facility] Comment on above: Order Comment: 'TROP ' Serial specimen #1, #2 or #3: 1 Performed By: #### L 100.0100, L501.4020, L300.4310, L500.2500, L300.3900 ####[facility] [address] [place], [address] Creatinine [Mass/Vol] 1.37 mg/dL High 0.70-1.30 [facility] Comment on above: Order Comment: 'TROP ' Serial specimen #1, #2 or #3: 1 Result Comment: The validity of the calculated GFR GFRAA in patients over70 years has not been determined. Clinical correlation isessential. Performed By: #### L 100.0100, L501.4020, L300.4310, L500.2500, L300.3900 ####[facility] [address] [place], [address] ECRCL 81.83 ml/min Normal [facility] Comment on above: Order Comment: 'TROP ' Serial specimen #1, #2 or #3: 1 Performed By: #### L 100.0100, L501.4020, L300.4310, L500.2500, L300.3900 ####[facility] [address] [place], [address] EST GFR - AA 68 mL/min Normal >60 [facility] Comment on above: Order Comment: 'TROP ' Serial specimen #1, #2 or #3: 1 Result Comment: Afri can [place] GFR Calc Performed By: #### L 100.0100, L501.4020, L300.4310, L500.2500, L300.3900 ####[facility] [address] [place], [address] GAP 6 Normal 5-15 [facility] Comment on above: Order Comment: 'TROP ' Serial specimen #1, #2 or #3: 1 Performed By: #### L 100.0100, L501.4020, L300.4310, L500.2500, L300.3900 ####[facility] [address] [place], [address] GFR/1.73 sq M.predicted among non-blacks MDRD (S/P/Bld) [Vol rate/Area] 56 mL/min/{1.73_m2} Low >60 [facility] Comment on above: Order Comment: 'TROP ' Serial specimen #1, #2 or #3: 1 Result Comment: Non- GFR Calc Performed By: #### L 100.0100, L501.4020, L300.4310, L500.2500, L300.3900 ####[facility] [address] [place], [address] Glucose [Mass/Vol] 116 mg/dL High 74-106 [facility] Comment on above: Order Comment: 'TROP ' Serial specimen #1, #2 or #3: 1 Result Comment: Fast ing Glucose result from 100 to 125 mg/dLsuggests IMPAIRED HOMEOSTASIS per A.D.A. criteria. Performed By: #### L 100.0100, L501.4020, L300.4310, L500.2500, L300.3900 ####[facility] [address] [place], [address] Potassium [Moles/Vol] 3.9 mmol/L Normal 3.5-5.1 [facility] Comment on above: Order Comment: 'TROP ' Serial specimen #1, #2 or #3: 1 Performed By: #### L 100.0100, L501.4020, L300.4310, L500.2500, L300.3900 ####[facility] [address] [place], [address] Sodium [Moles/Vol] 140 mmol/L Normal 136-145 [facility] [place] Comment on above: Order Comment: 'TROP ' Serial specimen #1, #2 or #3: 1 Performed By: #### L 100.0100, L501.4020, L300.4310, L500.2500, L300.3900 ####[facility] [address] [place], [address] Urea nitrogen [Mass/Vol] 25 mg/dL High 7-18 [facility] Comment on above: Order Comment: 'TROP ' Serial specimen #1, #2 or #3: 1 Performed By: #### L 100.0100, L501.4020, L300.4310, L500.2500, L300.3900 ####[facility] [address] [place], [address] CBC W/Diff, Automatedon - Absolute Lymph 2.30 X10 3/uL Normal 0.83-4.51 [facility] Comment on above: Performed By: #### L 100.0100, L501.4020, L300.4310, L500.2500, L300.3900 ####[facility] [address] [place], [address] Absolute Neut 7.5 X10 3/uL Normal 2.0-7.7 [facility] Comment on above: Performed By: #### L 100.0100, L501.4020, L300.4310, L500.2500, L300.3900 ####[facility] [address] [place], [address] Basophils/100 WBC (Bld) 0.7 % Normal 0-1 [facility] Comment on above: Performed By: #### L 100.0100, L501.4020, L300.4310, L500.2500, L300.3900 ####[facility] [address] [place], [address] Eosinophils/100 WBC (Bld) 2.8 % Normal 0-5 [facility] Comment on above: Performed By: #### L 100.0100, L501.4020, L300.4310, L500.2500, L300.3900 ####[facility] [address] [place], [address] Erythrocyte distribution width (RBC) [Ratio] 18.7 % High 11.6-14.6 [facility] Comment on above: Performed By: #### L 100.0100, L501.4020, L300.4310, L500.2500, L300.3900 ####[facility] [address] [place], [address] Hematocrit (Bld) [Volume fraction] 37.2 % Low 40-54 [facility] Comment on above: Performed By: #### L 100.0100, L501.4020, L300.4310, L500.2500, L300.3900 ####[facility] [address] [place], [address] Hemoglobin (Bld) [Mass/Vol] 11.3 g/dL Low 13.0-16.5 [facility] Comment on above: Performed By: #### L 100.0100, L501.4020, L300.4310, L500.2500, L300.3900 ####[facility] [address] [place], [address] IG% 1.100 High 0.0-0.9 [facility] Comment on above: Result Comment: IG% - Immature Granulocytes (promyelocytes, myelocytes andmetamyelocytes) > 1% indicates that a LEFT SHIFT is Present. Performed By: #### L 100.0100, L501.4020, L300.4310, L500.2500, L300.3900 ####[facility] [address] [place], [address] Lymphocytes/100 WBC (Bld) 19.9 % Normal 19-41 [facility] Comment on above: Performed By: #### L 100.0100, L501.4020, L300.4310, L500.2500, L300.3900 ####[facility] [address] [place], [address] MCH (RBC) [Entitic mass] 24.0 pg Low 27.0-32.0 [facility] Comment on above: Performed By: #### L 100.0100, L501.4020, L300.4310, L500.2500, L300.3900 ####[facility] [address] [place], [address] MCHC (RBC) [Mass/Vol] 30.4 g/dL Low 32-36 [facility] Comment on above: Performed By: #### L 100.0100, L501.4020, L300.4310, L500.2500, L300.3900 ####[facility] [address] [place], [address] MCV (RBC) [Entitic vol] 79.0 fL Low 80-94 [facility] Comment on above: Performed By: #### L 100.0100, L501.4020, L300.4310, L500.2500, L300.3900 ####[facility] [address] [place], [address] Monocytes/100 WBC (Bld) 10.6 % High 0-10 [facility] Comment on above: Performed By: #### L 100.0100, L501.4020, L300.4310, L500.2500, L300.3900 ####[facility] [address] [place], [address] Neutrophils/100 WBC (Bld) 64.9 % Normal 47-70 [facility] Comment on above: Performed By: #### L 100.0100, L501.4020, L300.4310, L500.2500, L300.3900 ####[facility] [address] [place], [address] Nucleated RBC (Bld) [#/Vol] 0 10*3/uL Normal 0-5 [facility] Comment on above: Performed By: #### L 100.0100, L501.4020, L300.4310, L500.2500, L300.3900 ####[facility] [address] [place], [address] Platelet mean volume (Bld) [Entitic vol] 9.3 fL Normal 6.2-12.0 [facility] Comment on above: Performed By: #### L 100.0100, L501.4020, L300.4310, L500.2500, L300.3900 ####[facility] [address] [place], [address] Platelets (Bld) [#/Vol] 259 10*3/uL Normal 150-450 [facility] Comment on above: Performed By: #### L 100.0100, L501.4020, L300.4310, L500.2500, L300.3900 ####[facility] [address] [place], [address] RBC (Bld) [#/Vol] 4.71 10*6/uL Normal 4.6-6.2 [facility] Comment on above: Performed By: #### L 100.0100, L501.4020, L300.4310, L500.2500, L300.3900 ####[facility] [address] [place], [address] RDW SD 53.2 fl High 35.1-43.9 [facility] Comment on above: Performed By: #### L 100.0100, L501.4020, L300.4310, L500.2500, L300.3900 ####[facility] [address] [place], [address] WBC (Bld) [#/Vol] 11.6 10*3/uL High 4.4-11.0 [facility] Comment on above: Performed By: #### L 100.0100, L501.4020, L300.4310, L500.2500, L300.3900 ####[facility] [address] [place], [address] Chest 1 Viewon 11-16-2023 Chest 1 View Normal [facility] Emergency Department Summary on 11-16-2023 Emergency Department Summary Normal [facility] L501.4020on 11-16-2023 TROPONIN-I HS 16 pg/mL Normal 3.0-78.0 [facility] Comment on above: Order Comment: 'TROP ' Serial specimen #1, #2 or #3: 1 Result Comment: Plea se Note: New Test Units and Gender Specific Reference Ranges. For more information see Policy Stat Procedure [place] High Sensitivity Troponin (TNIH) and attachments. Performed By: #### L 100.0100, L501.4020, L300.4310, L500.2500, L300.3900 ####[facility] [address] [place], [address] Partial Thromboplast Timeon 11-16-2023 aPTT Coag (Bld) [Time] 28.5 s Normal 24.1-36.2 [facility] Comment on above: Performed By: #### L 100.0100, L501.4020, L300.4310, L500.2500, L300.3900 ####[facility] [address] [place], [address] Prothrombin Time w/INRon INR Coag (PPP) [Relative time] 1.2 {INR} Normal [facility] Comment on above: Performed By: #### L 100.0100, L501.4020, L300.4310, L500.2500, L300.3900 ####[facility] [address] [place], [address] PT Coag (PPP) [Time] 15.6 s High 11.7-14.9 [facility] Comment on above: Performed By: #### L 100.0100, L501.4020, L300.4310, L500.2500, L300.3900 ####[facility] [address] [place], [address] STROKE Brain/Head without Co nton 11-16-2023 STROKE Brain/Head without Cont Normal [facility] STROKE CTA Head AND Neck W/C onon 11-16-2023 STROKE CTA Head AND Neck W/Con Normal [facility] Alcohol, Blood (Medical)-Ser umon 11-14-2023 SERUM ETOH < 3.0 Normal [facility] Comment on above: Result Comment: The serum:whole blood ethanol ratio is approximately 1.14and varies slightly with hematocrit.Medical Alcohol reference interval and critical value innon-tolerant individuals; 50 - 100 Impairment 100 Intoxication 100 - 250 Severe Poisoning 250 - 400 Deep/possible fatal coma Performed By: #### L 501.6071, L501.9985, L506.0250, L501.9100 ####[facility] [address] [place], [address] Bedside Glucoseon 11-14-2023 FINGERSTICK GLU 126 mg/dL High 74-106 [facility] Comment on above: Result Comment: ANI GEMENT OF PATIENT CARE PER NURSING PROTOCOL Performed By: #### L 501.080 ####[facility] [address] [place], [address] FINGERSTICK GLU 91 mg/dL Normal 74-106 [facility] Comment on above: Result Comment: ANI GEMENT OF PATIENT CARE PER NURSING PROTOCOL Performed By: #### L 501.080 ####[facility] [address] [place], [address] FINGERSTICK GLU 143 mg/dL High 74-106 [facility] Comment on above: Result Comment: NAI GEMENT OF PATIENT CARE PER NURSING PROTOCOL Performed By: #### L 501.080 ####[facility] [address] [place], [address] Brain without Contraston Brain without Contrast Normal [facility] Carotid Duplex Ultrasoundon 11-14-2023 Carotid Duplex Ultrasound Normal [facility] Consultation - Surgicalon Consultation - Surgical Normal [facility] Discharge Instructionon 10-30 Discharge Instruction Normal [facility] Folates, (Folic Acid)on 10-30 FOLATES 5.80 ng/mL Normal 3.1-55.4 [facility] Comment on above: Order Comment: Has P atient had X-rays with Contrast this admission? NN Performed By: #### L 501.9520, L501.9985, L506.0250, L501.9100 ####[facility] [address] [place], [address] Hemoglobin A1con 11-14-2023 HbA1c (Bld) [Mass fraction] 7.8 % High 3.8-5.6 [facility] Comment on above: Result Comment: Norm al < 5.7 % Prediabetic 5.7 - 6.4 % Diabetic >or= 6.5 % Please note range changes. Performed By: #### L 501.9520, L501.9985, L506.0250, L501.9100 ####[facility] [address] [place], [address] Lipid Profileon 11-14-2023 Cholesterol [Mass/Vol] 125 mg/dL Normal 200 [facility] Comment on above: Order Comment: Comme nts: NPO at [place] prior to lipid panel Result Comment: <200 mg/dL Desirable 200-240 mg/dL Borderline >240 mg/dL High Risk Performed By: #### L 500.4100 ####[facility] [address] [place], [address] Cholesterol in HDL [Mass/Vol] 41 mg/dL Normal [facility] Comment on above: Order Comment: Comme nts: NPO at [place] prior to lipid panel Result Comment: The drugs N-Acetylcysteine and Metamizole may falselydepress this assay. Reference Range HDL <40 mg/dL Low HDL Cholesterol HDL >or= 60 mg/dL High HDL Cholesterol Performed By: #### L 500.4100 ####[facility] [address] [place], [address] Cholesterol in LDL [Mass/Vol] 56 mg/dL Normal 0-130 [facility] Comment on above: Order Comment: Comme nts: NPO at [place] prior to lipid panel Performed By: #### L 500.4100 ####[facility] [address] [place], [address] Cholesterol in VLDL [Mass/Vol] 28 mg/dL Normal 5-40 [facility] Comment on above: Order Comment: Comme nts: NPO at [place] prior to lipid panel Performed By: #### L 500.4100 ####[facility] [address] [place], [address] Triglyceride [Mass/Vol] 140 mg/dL Normal [facility] Comment on above: Order Comment: Comme nts: NPO at [place] prior to lipid panel Result Comment: The drugs N-Acetylcysteine and Metamizole may falselydepress this assay.Serum Triglycerides Reference Interval Normal <150 mg/dL Borderline high 150 - 199 mg/dL High 200 - 499 mg/dL Very High > or = 500 mg/dL Performed By: #### L 500.4100 ####[facility] [address] [place], [address] MR/CON.PCM.NEon 11-14-2023 MR/CON.PCM.NE Normal [facility] Thyroid Stim Hormone (TSH)on 11-14-2023 TSH 3.910 uIU/mL High 0.358-3.74 0 [facility] Comment on above: Order Comment: Has P atient had X-rays with Contrast this admission? NN Performed By: #### L 501.9520, L501.9985, L506.0250, L501.9100 ####[facility] [address] [place], [address] Vitamin B12on 11-14-2023 Cobalamin (Vitamin B12) [Mass/Vol] 340 pg/mL Normal 211-911 [facility] Comment on above: Performed By: #### L 503.0105 ####[facility] [address] [place], [address] Basic Metabolic Profile (BMP )on 11-13-2023 BUN/CRE 21.8 RATIO High 10-20 [facility] Comment on above: Order Comment: 'TROP ' Serial specimen #1, #2 or #3: 1 Performed By: #### L 500.2500, L300.3900, L100.0100, L501.4020 ####[facility] [address] [place], [address] CA,Total 8.6 mg/dL Normal 8.5-10.1 [facility] Comment on above: Order Comment: 'TROP ' Serial specimen #1, #2 or #3: 1 Performed By: #### L 500.2500, L300.3900, L100.0100, L501.4020 ####[facility] [address] [place], [address] Chloride [Moles/Vol] 103 mmol/L Normal 98-107 [facility] Comment on above: Order Comment: 'TROP ' Serial specimen #1, #2 or #3: 1 Performed By: #### L 500.2500, L300.3900, L100.0100, L501.4020 ####[facility] [address] [place], [address] CO2 [Moles/Vol] 22.0 mmol/L Normal 21.0-32.0 [facility] Comment on above: Order Comment: 'TROP ' Serial specimen #1, #2 or #3: 1 Performed By: #### L 500.2500, L300.3900, L100.0100, L501.4020 ####[facility] [address] [place], [address] Creatinine [Mass/Vol] 1.56 mg/dL High 0.70-1.30 [facility] Comment on above: Order Comment: 'TROP ' Serial specimen #1, #2 or #3: 1 Result Comment: The validity of the calculated GFR GFRAA in patients over70 years has not been determined. Clinical correlation isessential. Performed By: #### L 500.2500, L300.3900, L100.0100, L501.4020 ####[facility] [address] [place], [address] ECRCL 72.64 ml/min Normal [facility] Comment on above: Order Comment: 'TROP ' Serial specimen #1, #2 or #3: 1 Performed By: #### L 500.2500, L300.3900, L100.0100, L501.4020 ####[facility] [address] [place], [address] EST GFR - AA 59 mL/min Low >60 [facility] Comment on above: Order Comment: 'TROP ' Serial specimen #1, #2 or #3: 1 Result Comment: Afri can [place] GFR Calc Performed By: #### L 500.2500, L300.3900, L100.0100, L501.4020 ####[facility] [address] [place], [address] GAP 8 Normal 5-15 [facility] Comment on above: Order Comment: 'TROP ' Serial specimen #1, #2 or #3: 1 Performed By: #### L 500.2500, L300.3900, L100.0100, L501.4020 ####[facility] [address] [place], [address] GFR/1.73 sq M.predicted among non-blacks MDRD (S/P/Bld) [Vol rate/Area] 49 mL/min/{1.73_m2} Low >60 [facility] Comment on above: Order Comment: 'TROP ' Serial specimen #1, #2 or #3: 1 Result Comment: Non- GFR Calc Performed By: #### L 500.2500, L300.3900, L100.0100, L501.4020 ####[facility] [address] [place], [address] Glucose [Mass/Vol] 258 mg/dL High 74-106 [facility] [place] Comment on above: Order Comment: 'TROP ' Serial specimen #1, #2 or #3: 1 Result Comment: Gluc ose result greater than or equal to 200 mg/dLsuggests DIABETES MELLITUS per A.D.A. criteria. Performed By: #### L 500.2500, L300.3900, L100.0100, L501.4020 ####[facility] [address] [place], [address] Potassium [Moles/Vol] 4.9 mmol/L Normal 3.5-5.1 [facility] Comment on above: Order Comment: 'TROP ' Serial specimen #1, #2 or #3: 1 Performed By: #### L 500.2500, L300.3900, L100.0100, L501.4020 ####[facility] [address] [place], [address] Sodium [Moles/Vol] 133 mmol/L Low 136-145 [facility] [place] Comment on above: Order Comment: 'TROP ' Serial specimen #1, #2 or #3: 1 Performed By: #### L 500.2500, L300.3900, L100.0100, L501.4020 ####[facility] [address] [place], [address] Urea nitrogen [Mass/Vol] 34 mg/dL High 7-18 [facility] Comment on above: Order Comment: 'TROP ' Serial specimen #1, #2 or #3: 1 Performed By: #### L 500.2500, L300.3900, L100.0100, L501.4020 ####[facility] [address] [place], [address] Bedside Glucoseon 11-13-2023 FINGERSTICK GLU 256 mg/dL High 74-106 [facility] Comment on above: Result Comment: ANI BRADFORD OF PATIENT CARE PER NURSING PROTOCOL Performed By: #### L 501.080 ####[facility] [address] [place], [address] CBC W/Diff, Automatedon 10-30 SMEAR COMMENT SCANNED Normal [facility] Comment on above: Performed By: #### L 500.2500, L300.3900, L100.0100, L501.4020 ####[facility] [address] [place], [address] CTA Head AND Neck W/ Contras ton 11-13-2023 CTA Head AND Neck W/ Contrast Normal [facility] Chest PA and Lateralon 11-12 Chest PA and Lateral Normal [facility] Emergency Department Summary on 11-13-2023 Emergency Department Summary Normal [facility] H AND P Exam - Hospitaliston 11-13-2023 H&P Exam - Hospitalist Normal [facility] L501.4020on 11-13-2023 TROPONIN-I HS 13 pg/mL Normal 3.0-78.0 [facility] Comment on above: Order Comment: 'TROP ' Serial specimen #1, #2 or #3: 1 Result Comment: Kodi monterroso Note: New Test Units and Gender Specific Reference Ranges. For more information see Policy Stat Procedure [place] High Sensitivity Troponin (TNIH) and attachments. Performed By: #### L 500.2500, L300.3900, L100.0100, L501.4020 ####[facility] [address] [place], [address] Partial Thromboplast Timeon 11-13-2023 aPTT Coag (Bld) [Time] 27.8 s Normal 24.1-36.2 [facility] Comment on above: Order Comment: REDRA W. PREVIOUS SPECIMEN REJECTED DUE TOCLOTTED SPECIMEN. 11/13/232051. Performed By: #### L 300.4310, L300.3900 ####[facility] [address] [place], [address] Prothrombin Time w/INRon INR Coag (PPP) [Relative time] 1.2 {INR} Normal [facility] Comment on above: Order Comment: REDRA W. PREVIOUS SPECIMEN REJECTED DUE TOCLOTTED SPECIMEN. 11/13/232051. Performed By: #### L 300.4310, L300.3900 ####[facility] [address] [place], [address] PT Coag (PPP) [Time] 14.8 s Normal 11.7-14.9 [facility] Comment on above: Order Comment: REDRA W. PREVIOUS SPECIMEN REJECTED DUE TOCLOTTED SPECIMEN. 11/13/232051. Performed By: #### L 300.4310, L300.3900 ####[facility] [address] [place], [address] INR Normal [facility] Comment on above: Result Comment: This specimen has been REJECTED due to Laboratory criteria:Clotted.ED-EITAN has been notified of need of recollection.11/13/232050 Kandice Rayaman Performed By: #### L 500.2500, L300.3900, L100.0100, L501.4020 ####[facility] [address] [place], [address] PROTIME Normal 11.7-14.9 [facility] Comment on above: Result Comment: This specimen has been REJECTED due to Laboratory criteria:Clotted.ED-EITAN has been notified of need of recollection.11/13/232050 Kandice Escobedo Performed By: #### L 500.2500, L300.3900, L100.0100, L501.4020 ####[facility] [address] [place], [address] Bedside Glucoseon 11-04-2023 FINGERSTICK GLU 170 mg/dL High 74-106 [facility] [facility] Comment on above: Result Comment: ANI GEMENT OF PATIENT CARE PER NURSING PROTOCOL Performed By: #### L 501.080 ####[facility] [address] [place], [address] Fluor Guidance for Spine Inj on 11-04-2023 Fluor Guidance for Spine Inj Normal [facility] MR/POSTOP.ANEon 11-04-2023 MR/POSTOP.ANE Normal [facility] MR/[id number] 11-04-2023 MR/POSTOPAN2 Normal [facility] Operative Reporton Operative Report Normal [facility] 6 Minute Walk Teston 024 6 Minute Walk Test Normal [facility] [place] 36on 10-17-2023 36 Per La, patient h as been placed in recall Normal [facility] Cardiology Visit Reporton Cardiology Visit Report Normal [facility] AWAIS + Protein Elect, Serumon 10-16-2023 Albumin [Mass/Vol] 3.6 g/dL Normal 2.9-4.4 [facility] [place] Comment on above: Order Comment: N Performed By: #### L 3600.4030, L3100.3425 ####[facility] [address] [place], [address] Albumin/Globulin [Mass ratio] 0.9 {ratio} Normal 0.7-1.7 [facility] Comment on above: Order Comment: N Performed By: #### L 3600.4030, L3100.3425 ####[facility] [address] [place], [address] XSZYN-9-DXBB 0.3 g/dL Normal 0.0-0.4 [facility] Comment on above: Order Comment: N Performed By: #### L 3600.4030, L3100.3425 ####[facility] [address] [place], [address] TWZOY-1-ABWI 1.0 g/dL Normal 0.4-1.0 [facility] Comment on above: Order Comment: N Performed By: #### L 3600.4030, L3100.3425 ####[facility] [address] [place], [address] BETA GLOBULIN 1.2 g/dL Normal 0.7-1.3 [facility] Comment on above: Order Comment: N Performed By: #### L 3600.4030, L3100.3425 ####[facility] [address] [place], [address] GAMMA GLOBULIN 2.0 g/dL High 0.4-1.8 [facility] Comment on above: Order Comment: N Performed By: #### L 3600.4030, L3100.3425 ####[facility] [address] [place], [address] Globulin (S) [Mass/Vol] 4.5 g/dL Abnormal 2.2-3.9 [facility] Comment on above: Order Comment: N Performed By: #### L 3600.4030, L3100.3425 ####[facility] [address] [place], [address] AWAIS RESULT,S Comment Normal . [facility] Comment on above: Order Comment: N Result Comment: No m onoclonality detected. Performed By: #### L 3600.4030, L3100.3425 ####[facility] [address] [place], [address] IMMUNOGLOB A QN 304 mg/dL Normal 90-386 [facility] Comment on above: Order Comment: N Performed By: #### L 3600.4030, L3100.3425 ####[facility] [address] [place], [address] IMMUNOGLOB G QN 1968 mg/dL High 603-1613 [facility] Comment on above: Order Comment: N Performed By: #### L 3600.4030, L3100.3425 ####[facility] [address] [place], [address] IMMUNOGLOB M QN 209 mg/dL High 20-172 [facility] Comment on above: Order Comment: N Performed By: #### L 3600.4030, L3100.3425 ####[facility] [address] [place], [address] M-Aaron Not Observed Normal Not Observed [facility] Comment on above: Order Comment: N Performed By: #### L 3600.4030, L3100.3425 ####[facility] [address] [place], [address] NOTE: Comment Normal . [facility] Comment on above: Order Comment: N Result Comment: Prot ein electrophoresis scan will follow via computer,mail, or breaker tender delivery. Performed By: #### L 3600.4030, L3100.3425 ####[facility] [address] [place], [place], [address] Protein [Mass/Vol] 8.1 g/dL Normal 6.0-8.5 [facility] [place] Comment on above: Order Comment: N Performed By: #### L 3600.4030, L3100.3425 ####[facility] [address] [place], [address] Immunofixation Urineon 10-15 AWAIS Urine Comment Normal . [facility] Comment on above: Order Comment: N Result Comment: No m onoclonality detected.Performed at: [facility] [address] [id number] Director: Chance Morales PhD, Phone: [phone] Performed By: #### L 3600.4030, L3100.3425 ####[facility] [address] [place], [address] 36on 10-15-2023 36 La -- per Dr. Arnel sierra's 10/04/23 consult note, patient is to have a repeat of his carotid US in 6 months for close surveillance; can you please place patient in recall as well as an order for a CU for April 2024? Normal [facility] Neurology Visit Reporton Neurology Visit Report Normal [facility] MR/BMS.BVSon 10-08-2023 MR/BMS.BVS Normal [facility] Lambda Light Chainson 10-06-2023 FR KAPPA LT CHN 79.0 mg/L Abnormal 3.3-19.4 [facility] Comment on above: Order Comment: Test( s) 389523-Izg. B1, Whole Bloodwas developed and its performance characteristicsdetermined by [employer]. It has not been cleared or approvedby the Food and Drug Administration. Performed By: #### L 506.0250, L3300.8000, L500.4100, L501.4700, L503.0105, L3130.0010 ####[facility] [address] [place], [address] FR LAMBDA LT CH 46.8 mg/L Abnormal 5.7-26.3 [facility] Comment on above: Order Comment: Test( s) [id number]-Lrg. B1, Whole Bloodwas developed and its performance characteristicsdetermined by [employer]. It has not been cleared or approvedby the Food and Drug Administration. Performed By: #### L 506.0250, L3300.8000, L500.4100, L501.4700, L503.0105, L3130.0010 ####[facility] [address] [place], [address] KAPPA/LAMBDA % 1.69 Abnormal 0.26-1.65 [facility] Comment on above: Order Comment: Test( s) 713754-Dqb. B1, Whole Bloodwas developed and its performance characteristicsdetermined by [employer]. It has not been cleared or approvedby the Food and Drug Administration. Performed By: #### L 506.0250, L3300.8000, L500.4100, L501.4700, L503.0105, L3130.0010 ####[facility] [address] [place], [address] Vitamin B1, Thiamineon 10-05 VIT B1 THIAMINE 128.1 nmol/L Normal 66.5-200.0 [facility] Comment on above: Order Comment: Test( s) 747447-Btl. B1, Whole Bloodwas developed and its performance characteristicsdetermined by [facility]. It has not been cleared or approvedby the Food and Drug Administration. Result Comment: Perf ormed at: - [address] [id number] Director: Chance Morales PhD, Phone: [phone] at: [facility] [address] [id number] Director: Rhina Norris MD, Phone: [phone] Performed By: #### L 506.0250, L3300.8000, L500.4100, L501.4700, L503.0105, L3130.0010 ####[facility] [address] [place], [address] CBC (HEMOGRAM)on 10-05-2023 Erythrocyte distribution width (RBC) [Ratio] 17.7 % High 11.5-15.0 [facility] Comment on above: Performed By: #### L AB294 ####Estimator And Drafter: RADHA SIMMONS ([id number])[facility])[address] [place] [address] Hematocrit (Bld) [Volume fraction] 36.7 % Low 40.0-52.0 [facility] Comment on above: Performed By: #### L AB294 ####Estimator And Drafter: RADHA SIMMONS ([id number])[facility])[address] [place] [address] Hemoglobin (Bld) [Mass/Vol] 11.3 g/dL Low 13.0-18.0 [facility] Comment on above: Performed By: #### L AB294 ####Estimator And Drafter: RADHA SIMMONS ([id number])[facility])[address] [place] [address] MCH (RBC) [Entitic mass] 23.3 pg Low 26.0-34.0 [facility] Comment on above: Performed By: #### L AB294 ####Estimator And Drafter: RADHA SIMMONS ([id number])[facility])[address] [place] [address] MCHC 30.8 % Normal 30.5-36.0 [facility] Comment on above: Performed By: #### L AB294 ####Estimator And Drafter: RADHA SIMMONS ([id number])[facility])[address] [place] [address] MCV (RBC) [Entitic vol] 75.7 fL Low 77.0-99.0 [facility] Comment on above: Performed By: #### L AB294 ####Estimator And Drafter: RADHA SIMMONS ([id number])[facility] ([facility])[address] [place] [address] Platelet mean volume (Bld) [Entitic vol] 10.1 fL Normal 9.0-12.7 [facility] Comment on above: Performed By: #### L AB294 ####Estimator And Drafter: RADHA SIMMONS ([id number])[facility] ([facility])[address] [place] [address] Platelets (Bld) [#/Vol] 221 10*3/uL Normal 140-440 [facility] Comment on above: Performed By: #### L AB294 ####Estimator And Drafter: RADHA SIMMONS ([id number])[facility] ([facility])[address] [place] [address] RBC (Bld) [#/Vol] 4.85 10*6/uL Normal 4.40-5.90 [facility] Comment on above: Performed By: #### L AB294 ####Estimator And Drafter: RADHA SIMMONS ([id number])[facility] ([facility])[address] [place] [address] WBC (Bld) [#/Vol] 9.9 10*3/uL Normal 3.6-10.7 [facility] Comment on above: Performed By: #### L AB294 ####Estimator And Drafter: RADHA SIMMONS ([id number])[facility] ([facility])[address] [place] [address] CBC panel Auto (Bld)Ordered By: Russel Sanchez on 10-05-2023 Erythrocyte distribution width (RBC) [Ratio] 17.7 % High 11.5 - 15.0 % [facility] Hematocrit (Bld) [Volume fraction] 36.7 % Low 40.0 - 52.0 % [facility] Hemoglobin (Bld) [Mass/Vol] 11.3 g/dL Low 13.0 - 18.0 g/dL [facility] Interpretation and review of laboratory results Abnormal [facility] MCH (RBC) [Entitic mass] 23.3 pg Low 26.0 - 34.0 pg [facility] MCHC (RBC) [Mass/Vol] 30.8 % 30.5 - 36.0 % [facility] MCV (RBC) [Entitic vol] 75.7 fL Low 77.0 - 99.0 fL [facility] Platelet mean volume (Bld) [Entitic vol] 10.1 fL 9.0 - 12.7 fL [facility] Platelets (Bld) [#/Vol] 221 10*3/uL 140 - 440 10*3/uL [facility] RBC (Bld) [#/Vol] 4.85 10*6/uL 4.40 - 5.90 10*6/uL [facility] WBC (Bld) [#/Vol] 9.9 10*3/uL 3.6 - 10.7 10*3/uL [facility] COMPREHENSIVE METABOLIC PANE Julio César 10-05-2023 Albumin [Mass/Vol] 4.1 g/dL Normal 3.5-5.0 [facility] Comment on above: Performed By: #### L AB17 ####Estimator And Drafter: RADHA SIMMONS ([id number])[facility])[address] [place] [address] ALP [Catalytic activity/Vol] 101 U/L Normal 38-126 [facility] Comment on above: Performed By: #### L AB17 ####Estimator And Drafter: RADHA SIMMONS ([id number])[facility] ([facility])[address] [place] [address] ALT [Catalytic activity/Vol] 21 U/L Normal 0-49 [facility] Comment on above: Performed By: #### L AB17 ####Estimator And Drafter: RADHA SIMMONS ([id number])[facility] ([facility])[address] [place] [address] Anion gap [Moles/Vol] 12 mmol/L Normal 3-13 [facility] Comment on above: Performed By: #### L AB17 ####Estimator And Drafter: RADHA SIMMONS ([id number])[facility] ([facility])[address] [place] [address] AST [Catalytic activity/Vol] 29 U/L Normal 15-46 [facility] Comment on above: Performed By: #### L AB17 ####Estimator And Drafter: RADHA SIMMONS ([id number])[facility])[address] [place] [address] Bilirubin [Mass/Vol] 1.2 mg/dL Normal 0.2-1.3 [facility] Comment on above: Performed By: #### L AB17 ####Estimator And Drafter: RADHA SIMMONS ([id number])[facility])[address] [place] [address] Calcium [Mass/Vol] 9.0 mg/dL Normal 8.4-10.4 [facility] Comment on above: Performed By: #### L AB17 ####Estimator And Drafter: RADHA SIMMONS ([id number])[facility])[address] [place] [address] Chloride [Moles/Vol] 102 mmol/L Normal 98-107 [facility] Comment on above: Performed By: #### L AB17 ####Estimator And Drafter: RADHA SIMMONS ([id number])[facility])[address] [place] [address] CO2 [Moles/Vol] 20 mmol/L Low 22-30 [facility] Comment on above: Performed By: #### L AB17 ####Estimator And Drafter: RADHA SIMMONS ([id number])[facility])[address] [place] [address] Creatinine [Mass/Vol] 0.89 mg/dL Normal 0.66-1.25 [facility] Comment on above: Performed By: #### L AB17 ####Estimator And Drafter: RADHA SIMMONS ([id number])[facility])[address] [place] [address] GLOMERULAR FILTRATION RATE ML/MIN/1.73 SQ M.PREDICTED >90.0 Normal >60.0 [facility] Comment on above: Result Comment: Calc ulation based on the Chronic Kidney Disease Epidemiology Collaboration (CKD-EPI) equation refit without adjustment for race Performed By: #### L AB17 ####Estimator And Drafter: RADHA SIMMONS ([id number])[facility] ([facility])[address] [place] [address] Glucose [Mass/Vol] 217 mg/dL High 70-100 [facility] Comment on above: Performed By: #### L AB17 ####Estimator And Drafter: RADHA SIMMONS ([id number])[facility] ([facility])[address] [place] [address] Potassium [Moles/Vol] 4.3 mmol/L Normal 3.5-5.1 [facility] Comment on above: Performed By: #### L AB17 ####Estimator And Drafter: RADHA SIMMONS ([id number])[facility])[address] [place] [address] Protein [Mass/Vol] 8.0 g/dL Normal 6.3-8.2 [facility] Comment on above: Performed By: #### L AB17 ####Estimator And Drafter: RADHA SIMMONS ([id number])[facility] ([facility])[address] [place] [address] Sodium [Moles/Vol] 134 mmol/L Low 135-145 [facility] Comment on above: Performed By: #### L AB17 ####Estimator And Drafter: RADHA SIMMONS ([id number])[facility] ([facility])[address] [place] [address] Urea nitrogen [Mass/Vol] 20 mg/dL Normal 9-20 [facility] Comment on above: Performed By: #### L AB17 ####Estimator And Drafter: RADHA SIMMONS ([id number])[facility] ([facility])[address] [place] [address] Comprehensive metabolic 1998 panelon 10-05-2023 Albumin [Mass/Vol] 4.1 g/dL 3.5 - 5.0 g/dL [facility] ALP [Catalytic activity/Vol] 101 U/L 38 - 126 U/L [facility] ALT [Catalytic activity/Vol] 21 U/L 0 - 49 U/L [facility] Anion gap [Moles/Vol] 12 mmol/L 3 - 13 mmol/L [facility] AST [Catalytic activity/Vol] 29 U/L 15 - 46 U/L [facility] Bilirubin [Mass/Vol] 1.2 mg/dL 0.2 - 1 .3 mg/dL [facility] Calcium [Mass/Vol] 9.0 mg/dL 8.4 - 10. 4 mg/dL [facility] Chloride [Moles/Vol] 102 mmol/L 98 - 10 7 mmol/L [facility] CO2 [Moles/Vol] 20 mmol/L Low 22 - 30 mmol/L [facility] Creatinine [Mass/Vol] 0.89 mg/dL 0.66 - 1.25 mg/dL [facility] GFR/1.73 sq M.predicted MDRD (S/P/Bld) [Vol rate/Area] - PINF [facility] Comment on above: Calculation based on the Chronic Kidney Disease Epidemiology Collaboration (CKD-EPI) equation refit without adjustment for race Glucose [Mass/Vol] 217 mg/dL High 70 - 100 mg/dL [facility] Interpretation and review of laboratory results Abnormal [facility] Potassium [Moles/Vol] 4.3 mmol/L 3.5 - 5.1 mmol/L [facility] Protein [Mass/Vol] 8.0 g/dL 6.3 - 8.2 g/dL [facility] Sodium [Moles/Vol] 134 mmol/L Low 135 - 145 mmol/L [facility] Urea nitrogen [Mass/Vol] 20 mg/dL 9 - 20 mg/dL [facility] ECG 12-LEADon 10-05-2023 ECG 12-LEAD IMPRESSION: Sinus rhythm Left ventricular hypertrophy Anterior Q waves, possibly due to LVH Electronically Signed On 10-05-2023 14:51:39 EDT by Lisa Fernandez [facility] IDNon 10-05-2023 IDN The patient is Moder ately Stable - Low risk of patient condition declining or worsening The patient's goals for the shift include The clinical goals for the shift include Over the shift, the patient did not make progress toward the following goals. Barriers to progression include . Recommendations to address these barriers include . Patient discharged. [facility] IDN The patient is Moder ately Stable - Low risk of patient condition declining or worsening The patient's goals for the shift include improved mental status The clinical goals for the shift include easily orient Over the shift, the patient did not make progress toward the following goals. Barriers to progression include mild confusion. Recommendations to address these barriers include reorient frequently. Normal [facility] System [facility] Laboratory - Chemistry and C hemistry - challengeon 10-05-2023 Glucose [Mass/Vol] 215 mg/dL High 70 - 100 mg/dL [facility] Comment on above: Caregiver Notified; Glucose [Mass/Vol] 226 mg/dL High 70 - 100 mg/dL [facility] Comment on above: Caregiver Notified; No Panel InformationOrdered By: Lisa Fernandez on 10-05-2023 Heart Rate 77 bpm [facility] Work Phone: P [place] 12 degrees [facility] Work Phone: AL Interval 160 ms [facility] Work Phone: QRS [place] -16 degrees [facility] Work Phone: QRSD Interval 113 ms [facility] Work Phone: QT Interval 401 ms [facility] Work Phone: QTC Interval 453 ms [facility] Work Phone: T Wave [place] 16 degrees [facility] Work Phone: [facility] Work Phone: No Panel Informationon 10-04 Sinus rhythm Left ventricular hypertrophy Anterior Q waves, possibly due to LVH Electronically Signed On 10-05-2023 14:51:39 EDT by Lisa Fernandez CV Lisa Patton MD - 10/05/2023 IMPRESSION: Sinus rhythm Left ventricular hypertrophy Anterior Q waves, possibly due to LVH Electronically Signed On 10-05-2023 14:51:39 EDT by Lisa Fernandez [facility] Interpretation and review of laboratory results Abnormal [facility] Performed by: [facility], [address] [place] [address] CLIA ID: [id number] [facility] Interpretation and review of laboratory results Abnormal [facility] Performed by: [facility], [address] [place] [address] CLIA ID: [id number] [facility] Nursing Noteon 10-05-2023 Nursing Note Patient discharged a t this time. Patient alert and oriented, reviewed discharge instructions with patient and daughter. PIV removed, tele removed. Normal [facility] Progress Noteon 10-05-2023 Progress Note Nutrition rescreen completed. Chart reviewed. Patient to be monitored and followed by the diet power plant technician. Dietitian available upon request. Normal [facility] BASIC METABOLIC PANELon Anion gap [Moles/Vol] 11 mmol/L Normal 3-13 [facility] Comment on above: Performed By: #### L AB15 ####Estimator And Drafter: RADHA SIMMONS ([id number])[facility])[address] [place] [address] Calcium [Mass/Vol] 9.3 mg/dL Normal 8.4-10.4 [facility] Comment on above: Performed By: #### L AB15 ####Estimator And Drafter: RADHA SIMMONS ([id number])[facility])[address] [place] [address] Chloride [Moles/Vol] 105 mmol/L Normal 98-107 [facility] Comment on above: Performed By: #### L AB15 ####Estimator And Drafter: RADHA SIMMONS ([id number])[facility])[address] [place] [address] [place] CO2 [Moles/Vol] 19 mmol/L Low 22-30 [facility] Comment on above: Performed By: #### L AB15 ####Estimator And Drafter: RADHA SIMMONS ([id number])[facility])[address] [place] [address] [place] Creatinine [Mass/Vol] 0.77 mg/dL Normal 0.66-1.25 [facility] Comment on above: Performed By: #### L AB15 ####Estimator And Drafter: RADHA SIMMONS ([id number])[facility])[address] [place] [address] GLOMERULAR FILTRATION RATE ML/MIN/1.73 SQ M.PREDICTED >90.0 Normal >60.0 [facility] Comment on above: Result Comment: Calc ulation based on the Chronic Kidney Disease Epidemiology Collaboration (CKD-EPI) equation refit without adjustment for race Performed By: #### L AB15 ####Estimator And Drafter: RADHA SIMMONS ([id number])[facility] ([facility])[address] [place] [address] Glucose [Mass/Vol] 177 mg/dL High 70-100 [facility] Comment on above: Performed By: #### L AB15 ####Estimator And Drafter: RADHA SIMMONS ([id number])[facility] ([facility])[address] [place] [address] Potassium [Moles/Vol] 4.4 mmol/L Normal 3.5-5.1 [facility] Comment on above: Performed By: #### L AB15 ####Estimator And Drafter: RADHA SIMMONS ([id number])[facility] ([facility])[address] [place] [address] Sodium [Moles/Vol] 134 mmol/L Low 135-145 [facility] Comment on above: Performed By: #### L AB15 ####Estimator And Drafter: RADHA SIMMONS ([id number])[facility])[address] [place] [address] Urea nitrogen [Mass/Vol] 17 mg/dL Normal 9-20 [facility] Comment on above: Performed By: #### L AB15 ####Estimator And Drafter: RADHA SIMMONS ([id number])[facility])[address] [place] [address] Basic metabolic 1998 panelon 10-04-2023 Anion gap [Moles/Vol] 11 mmol/L 3 - 13 mmol/L [facility] Calcium [Mass/Vol] 9.3 mg/dL 8.4 - 10. 4 mg/dL [facility] Chloride [Moles/Vol] 105 mmol/L 98 - 10 7 mmol/L [facility] CO2 [Moles/Vol] 19 mmol/L Low 22 - 30 mmol/L [facility] Creatinine [Mass/Vol] 0.77 mg/dL 0.66 - 1.25 mg/dL [facility] GFR/1.73 sq M.predicted MDRD (S/P/Bld) [Vol rate/Area] - PINF [facility] Comment on above: Calculation based on the Chronic Kidney Disease Epidemiology Collaboration (CKD-EPI) equation refit without adjustment for race Glucose [Mass/Vol] 177 mg/dL High 70 - 100 mg/dL [facility] Interpretation and review of laboratory results Abnormal [facility] Potassium [Moles/Vol] 4.4 mmol/L 3.5 - 5.1 mmol/L [facility] Sodium [Moles/Vol] 134 mmol/L Low 135 - 145 mmol/L [facility] Urea nitrogen [Mass/Vol] 17 mg/dL 9 - 20 mg/dL [facility] CARECOORDon 10-04-2023 [facility] Care Managment Initi al Assessment Date: 10/04/2023 Patient Name: Krunal Leos : 1965 Patient Information Source of Information: Patient Cognition/Language: WFL - Within Functional Limits Permission given to speak with patient medical center representative/caregiver as indicated: Confirmation of Payer with patient/family: Yes Payer Name: [place] : No Confirmation of Primary Care Physician: Confirmed PCP Name: Dr Khan Seen in last 2 years?: Yes Primary Caregiver: Self If assistance needed, confirmed caregiver ready, willing and able to care for patient at discharge: Confirmed with: Living Arrangements Current Residence: House Number of Floors 2 Number of Entry Steps: Bed/Bath Levels: Both second floor Facility: Facility Name: Plan to Return: Lives with: Spouse/significant other, Children Support Systems: Spouse/significant other, Children, Family members, Friends/neighbors Activities of Daily Living Ambulation: Independent Bathing/Dressing: Independent Elimination/Continence/To ileting: Independent Feeding: Independent Who Assists with Activities of Daily Living: Instrumental Activities of Daily Living Prescription Coverage: Yes Pharmacy Used: [facility] Medication Management: Independent Transportation/Shopping: Independent Transportation Mode: Car Needs Assistance with Transportation at Discharge: No Meal Preparation: Independent Laundry/Cleaning: Independent Finances/Bill Paying: Independent Communication: Independent Types of Care Services/Equipment Utilized Care Services: (n/a) Dialysis Type: NA Durable Medical Equipment: CPap Patient's Goal/Discharge Plan Patient expects to be discharged to: home Discharge Planning Actions: Continue to follow Patient's Choice Rights and [employer] and Collaborative Relationships Disclosed as Indicated for Post-Acute Care: Interdisciplinary Team Engagement: Social Work Referral for: Additional Information: Went into room introduced self and role to pt. He appears to be A 0 x 3. He was transferred from [facility] with CVA/TIA. Vascular and Neurology have been consulted. Needs carotid US. Anticipate home with no needs when stable.. . Gris Keith RN Normal [facility] CBC (HEMOGRAM)on 10-04-2023 Erythrocyte distribution width (RBC) [Ratio] 17.9 % High 11.5-15.0 [facility] Comment on above: Performed By: #### L [id number] #### Estimator And Drafter: RADHA SIMMONS ([id number]) [facility]) [address] [place] [address] Hematocrit (Bld) [Volume fraction] 39.6 % Low 40.0-52.0 [facility] Comment on above: Performed By: #### L [id number] #### Estimator And Drafter: RADHA SIMMONS ([id number]) [address] Hemoglobin (Bld) [Mass/Vol] 11.3 g/dL Low 13.0-18.0 [facility] Comment on above: Performed By: #### L [id number] #### Estimator And Drafter: RADHA SIMMONS ([id number]) [facility]) [address] [place] [address] MCH (RBC) [Entitic mass] 23.7 pg Low 26.0-34.0 [facility] Comment on above: Performed By: #### L [id number] #### Estimator And Drafter: RADHA SIMMONS ([id number]) [address] MCHC 28.5 % Low 30.5-36.0 [facility] Comment on above: Performed By: #### L [id number] #### Estimator And Drafter: RADHA SIMMONS ([id number]) [facility]) [address] [place] [address] MCV (RBC) [Entitic vol] 83.2 fL Normal 77.0-99.0 [facility] Comment on above: Performed By: #### L [id number] #### Estimator And Drafter: RADHA SIMMONS ([id number]) [facility] ([facility]) [address] [place] [address] Platelet mean volume (Bld) [Entitic vol] 9.5 fL Normal 9.0-12.7 [facility] Comment on above: Performed By: #### L [id number] #### Estimator And Drafter: RADHA SIMMONS ([id number]) [facility] ([facility]) [address] [place] [address] Platelets (Bld) [#/Vol] 201 10*3/uL Normal 140-440 [facility] Comment on above: Performed By: #### L [id number] #### Estimator And Drafter: RADHA SIMMONS ([id number]) [facility] ([facility]) [address] [place] [address] RBC (Bld) [#/Vol] 4.76 10*6/uL Normal 4.40-5.90 [facility] Comment on above: Performed By: #### L [id number] #### Estimator And Drafter: RADHA SIMMONS ([id number]) [facility] ([facility]) [address] [place] [address] WBC (Bld) [#/Vol] 8.3 10*3/uL Normal 3.6-10.7 [facility] Comment on above: Performed By: #### L [id number] #### Estimator And Drafter: RADHA SIMMONS ([id number]) [facility]) [address] [place] [address] CBC panel Auto (Bld)Ordered By: Eduin Brar on 10-04-2023 Erythrocyte distribution width (RBC) [Ratio] 17.9 % High 11.5 - 15.0 % [facility] Hematocrit (Bld) [Volume fraction] 39.6 % Low 40.0 - 52.0 % [facility] Hemoglobin (Bld) [Mass/Vol] 11.3 g/dL Low 13.0 - 18.0 g/dL [facility] Interpretation and review of laboratory results Abnormal [facility] MCH (RBC) [Entitic mass] 23.7 pg Low 26.0 - 34.0 pg [facility] MCHC (RBC) [Mass/Vol] 28.5 % Low 30.5 - 36.0 % [facility] MCV (RBC) [Entitic vol] 83.2 fL 77.0 - 99.0 fL [facility] Platelet mean volume (Bld) [Entitic vol] 9.5 fL 9.0 - 12.7 fL [facility] Platelets (Bld) [#/Vol] 201 10*3/uL 140 - 440 10*3/uL [facility] RBC (Bld) [#/Vol] 4.76 10*6/uL 4.40 - 5.90 10*6/uL [facility] WBC (Bld) [#/Vol] 8.3 10*3/uL 3.6 - 10.7 10*3/uL [facility] Consulton 10-04-2023 Consult Inpatient consult to Endovascular Neurology-- Consult performed by: Mey Loya APRN - LEGISLATIVE CORRESPONDENT Consult ordered by: Raphael Stone MD Reason for consult: vertebbral artery occlusion/ stenosis History Of Present Illness Krunal Leos is a 58 y.o. male presenting with left face and hand weakness in setting of chronic dizziness. Pt does have history of atrial fibrillation on Eliquis. 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 Usually occurs at rest. He does not have any recollection of falls or neck injury in the past. He reports that the face and hand weakness has completely resolved. Past Medical History He has no past medical history on file. Surgical History He has no past surgical history on file. Social History He has no history on file for tobacco use, alcohol use, and drug use. Allergies Patient has no allergy information on record. Medications No medications prior to admission. Review of Systems Constitutional: Positive for activity change. HENT: Negative. Eyes: Negative. Respiratory: Negative. Cardiovascular: Negative. Gastrointestinal: Negative. Endocrine: Negative. Genitourinary: Negative. Musculoskeletal: Positive for arthralgias. Skin: Negative. Allergic/Immunologic: Negative. Neurological: Negative. Hematological: Negative. Psychiatric/Behavioral: Negative. Neurological Exam Mental Status Oriented to person, place, time and situation. Speech is normal. Language is fluent with no aphasia. Attention and concentration are normal. Cranial Nerves CN II: Visual acuity is normal. Visual goldberg full to confrontation. CN III, IV, : Extraocular movements intact bilaterally. Normal lids and orbits bilaterally. Pupils equal round and reactive to light bilaterally. CN V: Facial sensation is normal. CN VII: Full and symmetric facial movement. CN VIII: Hearing is normal. CN IX, X: Palate elevates symmetrically. Normal gag reflex. CN XI: Shoulder shrug strength is normal. CN XII: Tongue midline without atrophy or fasciculations. Motor Normal muscle bulk throughout. No fasciculations present. Normal muscle tone. Strength is 5/5 throughout all four extremities. Sensory Sensation is intact to light touch, pinprick, vibration and proprioception in all four extremities. Reflexes Deep tendon reflexes are 2+ and symmetric in all four extremities. Coordination Oswjkw-st-[id number], rapid alternating movements and otgw-lu-cyhd normal bilaterally without dysmetria. Awake and alert PERRLA Physical Exam Eyes: General: Lids are normal. Extraocular Movements: Extraocular movements intact. Pupils: Pupils are equal, round, and reactive to light. Neurological: Motor: Motor strength is normal. Coordination: Coordination is intact. Deep Tendon Reflexes: Reflexes are normal and symmetric. Psychiatric: Speech: Speech normal. Last Recorded Vitals Blood pressure 134/69, pulse 79, temperature 36.3 ?C (97.3 ?F), temperature source Temporal, resp. rate 16, SpO2 93%. Relevant Results CT head with contrast- occlusion of left vertebral artery at the level of V3 extending beyond the field of view in with reconstitution of the left v4 segment with contrasted blood CT Head brain without contrast- showed no acute intercranial abnormality CT Neck - Complete occlusion of the left vertebral artery from the origin to the V3 segment. Moderate stenosis of the bilateral internal carotid arteries per NASCET criteria. Moderate stenosis of the left external carotid artery just distal to the carotid bifurcation and severe stenosis of the right external carotid artery just distal to the carotid bifurcation. MRI Brain without contrast- Numerous sub centimeter acute infarcts in the right cerebral hemisphere mainly in the cortex suggestive of an embolic source. CUS <50% stenosis in the right internal carotid artery. Calcific plaque (proximal) in the right internal carotid artery. Right External Carotid Artery: >50% stenosis. Moderate and heterogeneous plaque (proximal). Normal antegrade flow involving the right vertebral artery. <50% stenosis in the left internal carotid artery. Mild, heterogeneous and calcific plaque (proximal) in the left internal carotid artery. Left Subclavian Artery: >50% stenosis. Moderate and heterogeneous plaque. Subclavian has turbulent flow. Normal antegrade flow involving the left vertebral artery. Assessment/Plan Active Problems: There are no active Hospital Problems. 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 Normal [facility] Consult INITIAL CONSULT NOTE . STROKE SERVICE Patient Name: Krunal Leos Patient : 1965 Acct: [id number] Date of Admission: 10/03/2023 Room/Bed: [facility] A PCP: RADHA KHAN History of Present Ilness: 58 y.o. is man with the chief Complaint of: transferred from [place] for further evaluation of severe cerebrovascular disease presenting with left facial and hand weakness which occurred in the setting of 3 yrs history of dizziness acutely worsen in the last few days. At OSH CTA demonstrated presence of severe BA stenosis and occlusion of the left vertebral artery which apparently is symptomatic based on acute IS findings in MRI from Currently on Eliquis and ASA , ( Cymbalta also with platelet function altering effect ) However also receiving Lasix 40 abd NS at 50 BP med [facility] Patient feeling much better not active complaints or neurological findings at the time of my evaluation He has been seen already by vascular surgery ultrasound completed and determination of ICA stenosis < 50 % I communicated with Dr Mindi Culp who evaluated also patient 's imaging and reported NO interventions, Medical therapy at this time Patient was on Apixavan and ASA 81 mg tabs at the time of his event Past Medical History: No past medical history on file. Past Surgical History: No past surgical history on file. Home Medications: Prior to Admission medications Not on File Current Hospital Medications: Current Facility-Administered Medications: amLODIPine (Norvasc) tablet 5 mg, 5 mg, Oral, Daily, Michael Rico MD apixaban (Eliquis) tablet 5 mg, 5 mg, Oral, BID, Michael Rico MD, 5 mg at 10/03/232241 aspirin EC tablet 81 mg, 81 mg, Oral, Daily, Michael Rico MD atorvastatin (Lipitor) tablet 80 mg, 80 mg, Oral, Nightly, Michael Rico MD, 80 mg at 10/03/232241 busPIRone (Buspar) tablet 10 mg, 10 mg, Oral, TID, Michael Rico MD, 10 mg at 10/03/232241 dapagliflozin (Farxiga) tablet 5 mg, 5 mg, Oral, Daily, Michael Rico MD dextrose 5 % infusion, 100 mL/hr, IntraVENous, PRN, Michael Rico MD dextrose 50 % solution 12.5 g, 12.5 g, IntraVENous, PRN, Michael Rico MD DULoxetine (Cymbalta) DR capsule 60 mg, 60 mg, Oral, Daily, Michael Rico MD furosemide (Lasix) tablet 40 mg, 40 mg, Oral, BID, Michael Rico MD, 40 mg at 10/04/23 05 glipiZIDE (Glucotrol) tablet 5 mg, 5 mg, Oral, [facility], Michael Rico MD, 5 mg at 10/04/23 05 glucagon (human recombinant) injection 1 mg, 1 mg, IntraMUSCular, PRN, Michael Rico MD glucose oral gel 15 g, 15 g, Oral, PRN, Michael Rico MD insulin regular (HumuLIN R,NovoLIN R) injection 20 Units, 20 Units, SubCUTAneous, TID WC, Michael Rico MD labetalol (Normodyne,Trandate) injection 10 mg, 10 mg, IntraVENous, q10 min PRN, Michael Rico MD levothyroxine (Synthroid, Levoxyl) tablet 112 mcg, 112 mcg, Oral, Michael Leyva MD, 112 mcg at 10/04/23 0555 metoprolol succinate XL (Toprol-XL) 24 hr tablet 100 mg, 100 mg, Oral, Daily, Michael Rico MD pantoprazole (ProtoNix) EC tablet 40 mg, 40 mg, Oral, Michael Leyva MD, 40 mg at 10/04/23 0555 sodium chloride 0.9 % bolus 250 mL, 250 mL, IntraVENous, Once, Michael Rico MD sodium chloride 0.9 % infusion, 5-250 mL/hr, IntraVENous, PRN, Michael Rico MD sodium chloride 0.9 % infusion, 50 mL/hr, IntraVENous, Continuous, Michael Rico MD sodium chloride 0.9% (NS) flush 5-40 mL, 5-40 mL, IntraVENous, q12h, Michael Rico MD sodium chloride 0.9% (NS) flush 5-40 mL, 5-40 mL, IntraVENous, PRN, Michael Rico MD tamsulosin (Flomax) 24 hr capsule 0.4 mg, 0.4 mg, Oral, Daily, Michael Rico MD Continuous Infusions: sodium chloride, 50 mL/hr Allergies: Patient has no allergy information on record. Social History: TOBACCO: has no history on file for tobacco use. ETOH: has no history on file for alcohol use. RECREATIONAL DRUG USE: Social History Substance and Sexual Activity Drug Use Not on file Family History: :. No family history on file. ROS; : patient feels well no other neurological complaints Review of Systems Physical Examination: Patient Vitals for the past 8 hrs: BP Temp Temp src Pulse Resp SpO2 10/04/23 0620 116/73 36.1 ?C (97 ?F) Temporal 80 16 96 % 10/04/23 0222 109/79 36.7 ?C (98 ?F) Temporal 81 18 93 % No intake/output data recorded. General Physical Examination: General: Obese , comfortable HEENT:Normocephalic, atraumaticl CV: S1+S2, RRR, no MRG. Pulm:CTA b/l, unlabored Abdomen: Soft NT/ND. BS + Skin: Intact without ulcers, breakdowns or discoloration Extremities: normal with no edema or cyanosis Orthopedic limitation; N/A Pulses: Intact peripherally Carotid auscultation :No bruits Neurological Examination: Higher Functions: Mental Status Exam: Level of Alertness:Awake Orientation: Normal to self, time, place Me (more content not included)... Normal [facility] Consult ----- ----- Attestation signed by Suzy Jauregui MD at 10/04/2023 7:50 PM I saw and evaluated the patient. I agree with the findings and plan of care as documented in the resident?s note unless otherwise noted below. CTA images reviewed in PACS as well as carotid duplex. Minimal cervical carotid stenosis, unlikely cause of stroke symptoms. Carotid duplex shows < 50% by velocity criteria on the right and 50-59% stenosis on the left. He endorses left arm weakness which prompted him to go the hospital. The patient notes his symptoms have resolved at this point. 5/5 strength in all extremities on physical exam. Recommend continued medical management. Will plan for 6 month repeat ultrasound for close follow up. This was discussed with the patient and he is agreeable to the plan. ----- Vascular Surgery Consultation Note Reason for Consult: REN Euceda? HISTORY OF PRESENT ILLNESS: The patient is a 58 y.o. male with past medial history of CKD, HTN DM, hypothyroid Obesity, BPH, who is admitted to the hospital for treatment of basilar stroke type symptoms as well as left sided facial and hand weakness. Was admitted to OSH noted imaging findings included basilar artery stenosis, V3 occlusion atherosclerosis of BL carotid arteries without significant stenosis MRI completed 10/01 showing numerous subcentimeter acute infarcts in the right cerebral hemisphere mainly in the cortex suggestive of an embolic source. (Unfortunately unable to see any imaging) Patient states a couple days before presentation he noted dizziness symptoms these worsened on the day of presentation to the outside facility he noted left facial weakness left arm weakness he did not have left leg weakness. Had never had symptoms like this before. He presented to the outside facility where he received some medication in the ambulance but unsure of what kind. States he had an ultrasound in the past year of his carotids but no intervention was performed at that time. He has not had any recurrent stroke symptoms since the initial stroke symptoms. He takes aspirin and Eliquis daily he does have A-fib but in sinus on eval here he has been compliant with his medications. On exam AF, HDS on room air, labs pending IMPRESSION: Krunal Leos presents with stroke like symptoms, imaging done at OSH suggested possibility of carotid disease as well as concurrent vertebral and basilar disease RECOMMENDATIONS: - obtain carotid duplex - reconcile home meds patient on aspirin, statin and Eliquis as an outpatient most recent dose of Eliquis last night - follow up [facility] service evaluation - further plans to follow PMH: CKD, HTN DM, hypothyroid Obesity, BPH, Afib PSH: VATS for empyema, Percutaneous nephrostolithotomy Current Medications: sodium chloride, 50 mL/hr PRN medications: dextrose, dextrose, glucagon (rDNA), glucose, labetalol, sodium chloride, sodium chloride 0.9% amLODIPine, 5 mg, Oral, Daily apixaban, 5 mg, Oral, BID aspirin, 81 mg, Oral, Daily atorvastatin, 80 mg, Oral, Nightly busPIRone, 10 mg, Oral, TID dapagliflozin, 5 mg, Oral, Daily DULoxetine, 60 mg, Oral, Daily furosemide, 40 mg, Oral, BID glipiZIDE, 5 mg, Oral, qAM AC insulin regular, 20 Units, SubCUTAneous, TID WC levothyroxine, 112 mcg, Oral, qAM AC metoprolol succinate XL, 100 mg, Oral, Daily pantoprazole, 40 mg, Oral, qAM AC sodium chloride, 250 mL, IntraVENous, Once sodium chloride 0.9%, 5-40 mL, IntraVENous, q12h tamsulosin, 0.4 mg, Oral, Daily Allergies: Patient has no allergy information on record. Social History Socioeconomic History Marital status: Spouse name: Not on file Number of children: Not on file Years of education: Not on file Highest education level: Not on file Occupational History Not on file Tobacco Use Smoking status: Not on file Smokeless tobacco: Not on file Substance and Sexual Activity Alcohol use: Not on file Drug use: Not on file Sexual activity: Not on file Other Topics Concern Not on file Social History Narrative Not on file Social Determinants of Health Financial Resource Strain: Not on file Food Insecurity: Not on file Transportation Needs: Not on file Physical Activity: Not on file Stress: Not on file Social Connections: Not on file Intimate Partner Violence: Not on file Housing Stability: Not on file No family history on file. REVIEW OF SYSTEMS: The chart was reviewed. 11 point review of systems obtained, and negative unless otherwise mentioned in HPI LABS: No results found for: CREATININE No results found for: WBC, HGB, HCT, MCV, PLT No results found for: INR, PROTIME No results found for: VLDL PHYSICAL EXAM: Vitals: 10/04/23 0620 BP: 116/73 Pulse: 80 Resp: 16 Temp: 36.1 ?C (97 ?F) SpO2: (more content not included)... Normal [facility] HEMOGLOBIN A1Con 10-04-2023 Glucose [Mass/Vol] 177 mg/dL Normal [facility] Comment on above: Performed By: #### L AB90 ####Estimator And Drafter: RADHA SIMMONS ([id number])[address] HbA1c (Bld) [Mass fraction] 7.8 % High <5.7 [facility] Comment on above: Result Comment: Norm al less than 5.7% Prediabetes 5.7% to 6.4% Diabetes 6.5% or higher --HgbA1C levels may not be accurate in patients who have renal disease, received recent blood transfusions, are anemic, or who have dyshemoglobinemia. Performed By: #### L AB90 ####Estimator And Drafter: RADHA SIMMONS ([id number])[address] LIPID PANELon 10-04-2023 Cholesterol [Mass/Vol] 147 mg/dL Normal <200 [facility] Comment on above: Performed By: #### L [id number], LAB18 ####Estimator And Drafter: RADHA SIMMONS ([id number])[facility])[address] [place] [address] Cholesterol in HDL [Mass/Vol] 27 mg/dL Low 40-60 [facility] Comment on above: Performed By: #### L [id number], LAB18 ####Estimator And Drafter: RADHA SIMMONS ([id number])[facility])[address] [place] [address] Cholesterol.total/Rebecca sterol in HDL [Mass ratio] 5 {ratio} Normal [facility] Comment on above: Result Comment: Ref Range: < 3 Low Risk for CHD 3-6 Mod Risk for CHD > 6 High Risk for CHD Performed By: #### L [id number], LAB18 ####Estimator And Drafter: RADHA SIMMONS ([id number])[facility] ([facility])[address] [place] [address] LOW DENSITY LIPOPROTEIN 41 mg/dL Normal 0-<100 [facility] Comment on above: Performed By: #### L [id number], LAB18 ####Estimator And Drafter: RADHA SIMMONS ([id number])[facility])[address] [place] [address] Triglyceride [Mass/Vol] 397 mg/dL High <150 [facility] Comment on above: Performed By: #### L [id number], LAB18 ####Estimator And Drafter: RADHA SIMMONS ([id number])[facility])[address] [place] [address] Laboratory - Chemistry and C hemistry - challengeon 10-04-2023 Glucose [Mass/Vol] 221 mg/dL High 70 - 100 mg/dL [facility] Glucose [Mass/Vol] 157 mg/dL High 70 - 100 mg/dL [facility] Troponin I.cardiac [Mass/Vol] ng/mL NINF - 0.034 ng/mL [facility] Glucose [Mass/Vol] 162 mg/dL High 70 - 100 mg/dL [facility] Troponin I.cardiac [Mass/Vol] ng/mL NINF - 0.034 ng/mL [facility] Glucose [Mass/Vol] 193 mg/dL High 70 - 100 mg/dL [facility] Average glucose Estimated from glycated hemoglobin (Bld) [Mass/Vol] 177 mg/dL [facility] Laboratory - Coagulationon 0 10-04-2023 aPTT Coag (PPP) [Time] 27.3 s 20.0 - 30.5 s [facility] INR Coag (PPP) [Relative time] 1.0 {INR} 0.9 - 1.1 [facility] Comment on above: Recommended Anticoag ulant Therapy: SEE BELOW ----- INR of 2.0 - 3.0 : - Prophylaxis of Venous Thrombosis (high-risk surgery) - Treatment of Venous Thrombosis - Treatment of Pulmonary Embolism (Includes tissue heart valves, Acute Myocardial Infarction to prevent systemic embolism, Valvular Heart Disease, and Atrial Fibrillation) ----- INR of 2.5 - 3.5 : - Mechanical Prosthetic Valves (high risk) - If oral anticoagulant therapy is used to prevent Myocardial Infarction PT Coag (Bld) [Time] 10.9 s 9.0 - 1 2.0 s [facility] Laboratory - Hematology and Cell countson 10-04-2023 HbA1c (Bld) [Mass fraction] 7.8 % High [facility] - 5.7 % [facility] Comment on above: Normal less than 5.7 % Prediabetes 5.7% to 6.4% Diabetes 6.5% or higher --HgbA1C levels may not be accurate in patients who have renal disease, received recent blood transfusions, are anemic, or who have dyshemoglobinemia. Lipid 1996 panelon Cholesterol [Mass/Vol] 147 mg/dL [facility] - 200 mg/dL [facility] Cholesterol in HDL [Mass/Vol] 27 mg/dL Low 40 - 60 mg/dL [facility] Cholesterol in LDL [Mass/Vol] 41 mg/dL 0 - <100 [facility] Cholesterol.total/Rebecca sterol in HDL [Mass ratio] 5 {ratio} [facility] Comment on above: Ref Range: < 3 Low Risk for CHD 3-6 Mod Risk for CHD > 6 High Risk for CHD Interpretation and review of laboratory results Abnormal [facility] Triglyceride [Mass/Vol] 397 mg/dL [facility] mg/dL [facility] No Panel Informationon 10-03 Interpretation and review of laboratory results Abnormal [facility] Performed by: [facility], [address] [place] [address], [facility] [address] CLIA ID: [id number] [facility] Interpretation and review of laboratory results Abnormal [facility] Performed by: [facility], [address] [place] [address], [facility] [address] CLIA ID: [id number] [facility] Interpretation and review of laboratory results Normal [facility] Addendum by Analia Zamudio MD on 10/04/2023 1:15 PM EDT <50% stenosis in the right internal carotid artery. Calcific plaque (proximal) in the right internal carotid artery. Right External Carotid Artery: >50% stenosis. Moderate and heterogeneous plaque (proximal). Normal antegrade flow involving the right vertebral artery. <50% stenosis in the left internal carotid artery. Mild, heterogeneous and calcific plaque (proximal) in the left internal carotid artery. Left Subclavian Artery: >50% stenosis. Moderate and heterogeneous plaque. Subclavian has turbulent flow. Normal antegrade flow involving the left vertebral artery. Right Carotid Common Carotid Artery: Moderate, heterogeneous and calcific plaque. Internal Carotid Artery: <50% stenosis. Calcific plaque (proximal). Proximal ICA has turbulent flow. External Carotid Artery: >50% stenosis. Moderate and heterogeneous plaque (proximal). Vertebral Artery: Flow is antegrade. Subclavian Artery: With multiphasic waveforms. Left Carotid Common Carotid Artery: Moderate, heterogeneous and calcific plaque. Internal Carotid Artery: <50% stenosis. Mild, heterogeneous and calcific plaque (proximal). Proximal ICA is tortuous and has turbulent flow. External Carotid Artery: Patent. Vertebral Artery: Flow is antegrade. Dampened Subclavian Artery: >50% stenosis. Moderate and heterogeneous plaque. Subclavian has turbulent flow. 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 During the study longitudinal and transverse views were obtained. Pulsed wave doppler was performed. The exam was performed with the patient in the supine position. Overall the study quality was adequate. Study was technically difficult due to: acoustic shadowing and body habitus. [facility] Interpretation and review of laboratory results Abnormal [facility] Performed by: [facility], [address] [place] [address] CLIA ID: [id number] [facility] Interpretation and review of laboratory results Abnormal [facility] Performed by: [facility], [address] [place] [address] CLIA ID: [id number] [facility] Interpretation and review of laboratory results Abnormal [facility] No Panel InformationOrdered By: Analia Zamudio on 10-04-2023 Left CCA dist EDV 36.3 cm/s [facility] Work Phone: Left CCA dist PSV 252.1 cm/s [facility] Work Phone: Left CCA mid EDV 40.30 cm/s [facility] Work Phone: [phone] Left CCA mid PSV 257.50 cm/s [facility] Work Phone: Left CCA prox EDV 34.8 cm/s [facility] Work Phone: Left CCA prox PSV 191.4 cm/s [facility] Work Phone: [phone] Left ECA EDV 18.70 cm/s [facility] Work Phone: Left ECA PSV 223.6 cm/s [facility] Work Phone: Left ICA dist EDV 23.1 cm/s [facility] Work Phone: [phone] Left ICA dist PSV 69.7 cm/s [facility] Work Phone: [phone] Left ICA mid EDV 38.3 cm/s [facility] Work Phone: Left ICA mid PSV 174.6 cm/s [facility] Work Phone: Left ICA prox EDV 28.0 cm/s [facility] Work Phone: Left ICA prox PSV 177.2 cm/s [facility] Work Phone: Left ICA/CCA PSV 0.69 [facility] Work Phone: Left vertebral EDV 6.00 cm/s [facility] Work Phone: Left vertebral PSV 27.1 cm/s [facility] Work Phone: Right CCA dist EDV 22.9 cm/s [facility] Work Phone: Right cca dist PSV 120.8 cm/s [facility] Work Phone: Right CCA mid EDV 26.50 cm/s [facility] Work Phone: Right CCA mid PSV 108.10 cm/s [facility] Work Phone: Right CCA prox EDV 28.0 cm/s [facility] Work Phone: Right CCA prox PSV 161.8 cm/s [facility] Work Phone: Right ICA dist EDV 24.7 cm/s [facility] Work Phone: Right ICA dist PSV 78.9 cm/s [facility] Work Phone: Right ICA mid EDV 30.1 cm[facility]s [facility] Work [facility]: Right ICA mid PSV 97.5 cm/s [facility] Work Phone: Right ICA prox EDV 16.0 cm/s [facility] Work Phone: Right ICA prox PSV 74.3 cm/s [facility] Work Phone: Right ICA/CCA PSV 0.90 [facility] Work Phone: Right subclavian mid EDV 9.7 cm/s [facility] Work Phone: Right subclavian mid PSV 66.0 cm/s [facility] Work Phone: Right vertebral EDV 12.00 cm/s [facility] Work Phone: Right vertebral PSV 47.5 cm/s [facility] Work Phone: PROTIME AND APTTon aPTT Coag (Bld) [Time] 27.3 s Normal 20.0-30.5 [facility] Comment on above: Performed By: #### L [id number] ####Estimator And Drafter: RADHA SIMMONS ([id number])[facility] ([facility])[address] [place] [address] INR Coag (PPP) [Relative time] 1.0 {INR} Normal 0.9-1.1 [facility] Comment on above: Result Comment: Luciano mmended Anticoagulant Therapy: SEE BELOW ----- INR of 2.0 - 3.0 : - Prophylaxis of Venous Thrombosis (high-risk surgery) - Treatment of Venous Thrombosis - Treatment of Pulmonary Embolism (Includes tissue heart valves, Acute Myocardial Infarction to prevent systemic embolism, Valvular Heart Disease, and Atrial Fibrillation) ----- INR of 2.5 - 3.5 : - Mechanical Prosthetic Valves (high risk) - If oral anticoagulant therapy is used to prevent Myocardial Infarction Performed By: #### L [id number] ####Estimator And Drafter: RADHA SIMMONS ([id number])[facility] ([facility])[address] [place] [address] [place] PT Coag (PPP) [Time] 10.9 s Normal 9.0-12.0 [facility] Comment on above: Performed By: #### L [id number] ####Estimator And Drafter: RADHA SIMMONS ([id number])[facility] ([facility])[address] [place] [address] [place] TROPONIN Ion 10-04-2023 Troponin I.cardiac [Mass/Vol] ng/mL Normal <0.034 [facility] Comment on above: Result Comment: DAPHNE R COMMENTS: Patients with high levels of Biotin oral intake (ie >5 mg/day) may have falsely decreased Troponin levels. Performed By: #### L [id number] ####Estimator And Drafter: RADHA SIMOMNS ([id number])[facility] ([facility])[address] [place] [address] [place] TROPONIN, WITH SERIAL REFLEX on 10-04-2023 Troponin I.cardiac [Mass/Vol] ng/mL Normal <0.034 [facility] Comment on above: Result Comment: DAPHNE Low COMMENTS: Patients with high levels of Biotin oral intake (ie >5 mg/day) may have falsely decreased Troponin levels. Performed By: #### L [id number] ####Estimator And Drafter: RADHA SIMMONS ([id number])[facility] ([facility])[address] [place] [address] Troponin I.cardiac [Mass/Vol ]on 10-04-2023 Interpretation and review of laboratory results Normal [facility] Patients with high l evels of Biotin oral intake (ie >5 mg/day) may have falsely decreased Troponin levels. [facility] Interpretation and review of laboratory results Normal [facility] Patients with high l evels of Biotin oral intake (ie >5 mg/day) may have falsely decreased Troponin levels. [facility] .Auto Diffon 10-03-2023 Basophil, Absolute 0.1 10 3/mcL Normal 0.0-0.2 [facility] ([place]) Comment on above: Performed By: #### M G, GFR, ADIFF, ANEU, CBC, CMP ####[address] [place], [place] [address] Basophils/100 WBC (Bld) 1.0 % Normal 0.0-2.5 [facility] ([place] Comment on above: Performed By: #### M G, GFR, ADIFF, ANEU, CBC, CMP ####[address] [place], [place] [address] Eosinophil, Absolute 0.4 10 3/mcL Normal 0.0-0.4 [facility] ([place]) Comment on above: Performed By: #### M G, GFR, ADIFF, ANEU, CBC, CMP ####[address] [place], [place] [address] Eosinophils/100 WBC (Bld) 5.1 % Normal 0.0-7.0 [facility] ([place] Comment on above: Performed By: #### M G, GFR, ADIFF, ANEU, CBC, CMP ####[address] [place], [place] [address] Lymphocyte, Absolute 1.6 10 3/mcL Normal 0.8-3.9 [facility] ([place] Comment on above: Performed By: #### M G, GFR, ADIFF, ANEU, CBC, CMP ####[address] [place], [place] [address] Lymphocytes/100 WBC (Bld) 20.4 % Normal 10.0-50.0 [facility] ([place] Comment on above: Performed By: #### M G, GFR, ADIFF, ANEU, CBC, CMP ####[address] [place], [place] [address] Monocyte, Absolute 0.9 10 3/mcL Normal 0.2-1.0 [facility] ([place] Comment on above: Performed By: #### M G, GFR, ADIFF, ANEU, CBC, CMP ####[address] [place], [place] [address] Monocytes/100 WBC (Bld) 11.5 % Normal 1.7-13.0 [facility] ([place]) Comment on above: Performed By: #### M G, GFR, ADIFF, ANEU, CBC, CMP ####[address] [place], [place] [address] Neutrophils/100 WBC (Bld) 62.0 % Normal 37.0-80.0 [facility] ([place] Comment on above: Performed By: #### M G, GFR, ADIFF, ANEU, CBC, CMP ####[address] [place], [place] [address] .GFRon 10-03-2023 GFR Non- 72 ml/min/1.73sqm Normal [facility] ([place] Comment on above: Result Comment: GFR Population mean for , Non- Americans Ages 20-29 = 116 mL/min/1.73 sq.m. Ages 30-39 = 107 mL/min/1.73 sq.m. Ages 40-49 = 99 mL/min/1.73 sq.m. Ages 50-59 = 93 mL/min/1.73 sq.m. Ages 60-69 = 85 mL/min/1.73 sq.m. Ages 70+ = 75 mL/min/1.73 sq.m. Chronic Kidney Disease: Less than 60 mL/min/1.73 square meters End Stage Renal Disease: Less than 15 mL/min/1.73 square meters Performed By: #### M G, GFR, ADIFF, ANEU, CBC, CMP ####[address] [place], [place] [address] GFR 87 ml/min/1.73sqm Normal [facility] ([place] Comment on above: Result Comment: GFR Population mean for , Non- Americans Ages 20-29 = 116 mL/min/1.73 sq.m. Ages 30-39 = 107 mL/min/1.73 sq.m. Ages 40-49 = 99 mL/min/1.73 sq.m. Ages 50-59 = 93 mL/min/1.73 sq.m. Ages 60-69 = 85 mL/min/1.73 sq.m. Ages 70+ = 75 mL/min/1.73 sq.m. Chronic Kidney Disease: Less than 60 mL/min/1.73 square meters End Stage Renal Disease: Less than 15 mL/min/1.73 square meters Performed By: #### M Mark, GFR, ADIFF, ANEU, CBC, CMP ####[address] [place], [place] [address] .NEUABSon 10-03-2023 Neutrophil, Absolute 4.7 10 3/mcL Normal 2.9-6.2 [facility] ([place]) Comment on above: Performed By: #### M G, GFR, ADIFF, ANEU, CBC, CMP ####[address] [place], [place] [address] CBCon 10-03-2023 Erythrocyte distribution width (RBC) [Ratio] 18.3 % High 11.5-14.5 [facility] ([place] Comment on above: Performed By: #### M G, GFR, ADIFF, ANEU, CBC, CMP ####[address] [place], [place] [address] Hematocrit (Bld) [Volume fraction] 32.0 % Low 42.0-52.0 [facility] ([place] Comment on above: Performed By: #### M G, GFR, ADIFF, ANEU, CBC, CMP ####[address] [place], [place] [address] Hgb 10.5 G/dL Low 14.0-18.0 [facility] ([place] Comment on above: Performed By: #### M G, GFR, ADIFF, ANEU, CBC, CMP ####[address] [place], [place] [address] MCH (RBC) [Entitic mass] 24.5 pg Low 27.0-31.2 [facility] ([place] Comment on above: Performed By: #### M G, GFR, ADIFF, ANEU, CBC, CMP ####[address] [place], [place] [address] MCHC 32.9 G/dL Normal 31.8-35.4 [facility] ([place] Comment on above: Performed By: #### M G, GFR, ADIFF, ANEU, CBC, CMP ####[address] [place], [place] [address] MCV (RBC) [Entitic vol] 74.3 fL Low 80.0-94.0 A [facility] ([place] Comment on above: Performed By: #### M G, GFR, ADIFF, ANEU, CBC, CMP ####[address] [place], [place] [address] Platelet 211 10 3/mcL Normal 130-400 [facility] ([place] Comment on above: Performed By: #### M G, GFR, ADIFF, ANEU, CBC, CMP ####[address] [place], [place] [address] Platelet mean volume (Bld) [Entitic vol] 7.6 fL Normal 7.4-10.4 [facility] ([place] Comment on above: Performed By: #### M G, GFR, ADIFF, ANEU, CBC, CMP ####[address] [place], [place] [address] RBC 4.31 10 6/mcL Normal 4.04-6.13 [facility] ([place] Comment on above: Performed By: #### M G, GFR, ADIFF, ANEU, CBC, CMP ####[address] [place], [place] [address] WBC 7.6 10 3/mcL Normal 4.6-10.8 [facility] ([place] Comment on above: Performed By: #### M G, GFR, ADIFF, ANEU, CBC, CMP ####[address] [place], [place] [address] CMPon 10-03-2023 Albumin Level 3.1 G/dL Low 3.4-4.8 [facility] ([place] Comment on above: Performed By: #### M G, GFR, ADIFF, ANEU, CBC, CMP ####[address] [place], [place] [address] Albumin/Globulin [Mass ratio] 0.8 {ratio} Low 1.1-2.5 [facility] ([place] Comment on above: Performed By: #### M G, GFR, ADIFF, ANEU, CBC, CMP ####[address] [place], [place] [address] ALP [Catalytic activity/Vol] 93 U/L Normal 40-135 [facility] ([place] Comment on above: Performed By: #### M G, GFR, ADIFF, ANEU, CBC, CMP ####[address] [place], [place] [address] ALT [Catalytic activity/Vol] 20 U/L Normal 16-63 [facility] ([place] Comment on above: Performed By: #### M G, GFR, ADIFF, ANEU, CBC, CMP ####[address] [place], [place] [address] AST [Catalytic activity/Vol] 15 U/L Normal 10-40 [facility] ([place] Comment on above: Performed By: #### M G, GFR, ADIFF, ANEU, CBC, CMP ####[address] [place], [place] [address] Bili Total 0.5 mg/dL Normal 0.2-1.0 [facility] ([place] Comment on above: Result Comment: Use of this assay is not recommended for patients undergoing treatment with eltrombopag due to the potential for falsely elevated results. Performed By: #### M G, GFR, ADIFF, ANEU, CBC, CMP ####[address] [place], [place] [address] BUN/Creatinine Ratio 17 ratio Normal 7-27 [facility] ([place] Comment on above: Performed By: #### M G, GFR, ADIFF, ANEU, CBC, CMP ####[address] [place], [place] [address] Calcium [Mass/Vol] 8.9 mg/dL Normal 8.4-10.2 [facility] ([place] Comment on above: Performed By: #### M G, GFR, ADIFF, ANEU, CBC, CMP ####[address] [place], [place] [address] Chloride [Moles/Vol] 104 mmol/L Normal 98-107 [facility] ([place] Comment on above: Performed By: #### M G, GFR, ADIFF, ANEU, CBC, CMP ####[address] [place], [place] [address] CO2 [Moles/Vol] 27 mmol/L Normal 23-31 [facility] ([place] Comment on above: Performed By: #### M G, GFR, ADIFF, ANEU, CBC, CMP ####[address] [place], [place] [address] Creatinine [Mass/Vol] 1.05 mg/dL Normal 0.70-1.30 [facility] ([place] Comment on above: Performed By: #### M G, GFR, ADIFF, ANEU, CBC, CMP ####[address] [place], [place] [address] Electrolyte Balance 7.0 mEq/L Normal 4.0-15.0 [facility] ([place]) Comment on above: Performed By: #### M G, GFR, ADIFF, ANEU, CBC, CMP ####[address] [place], [place] [address] Globulin 3.9 G/dL Normal [facility] ([place] Comment on above: Performed By: #### M G, GFR, ADIFF, ANEU, CBC, CMP ####[address] [place], [place] [address] Glucose [Mass/Vol] 158 mg/dL High 80-115 [facility] ([place] Comment on above: Performed By: #### M G, GFR, ADIFF, ANEU, CBC, CMP ####[address] [place], [place] [address] Potassium [Moles/Vol] 4.5 mmol/L Normal 3.5-5.1 [facility] ([place] Comment on above: Performed By: #### M G, GFR, ADIFF, ANEU, CBC, CMP ####[address] [place], [place] [address] Sodium [Moles/Vol] 138 mmol/L Normal 136-145 [facility] ([place] Comment on above: Performed By: #### M G, GFR, ADIFF, ANEU, CBC, CMP ####[address] [place], [place] [address] Total Protein 7.0 G/dL Normal 6.4-8.2 [facility] ([place] Comment on above: Performed By: #### M G, GFR, ADIFF, ANEU, CBC, CMP ####[address] [place], [place] [address] Urea nitrogen [Mass/Vol] 18 mg/dL Normal 7-18 [facility] ([place] Comment on above: Performed By: #### M G, GFR, ADIFF, ANEU, CBC, CMP ####[address] [place], [place] [address] CT ANGIOGRAPHY HEAD W/ CONTR Arpit 10-03-2023 CT ANGIOGRAPHY HEAD W/ CONTRAST ORIGINAL EXAMINATION: CTA OF THE HEAD WITH CONTRAST10/02/2023 3:32 pm TECHNIQUE: CTA of the head/brain was performed with the administration of intravenous contrast. Multiplanar reformatted images are provided for review. MIP images are provided for review. Automated exposure control, iterative reconstruction, and/or weight based adjustment of the mA/kV was utilized to reduce the radiation dose to as low as reasonably achievable. COMPARISON: 03/18/2019 ultrasound, 10/02/2023 CTA neck, 10/02/2023 MRI brain HISTORY: ORDERING SYSTEM PROVIDED HISTORY: Reason for Exam: confirmed embolic stroke FINDINGS: The petrous, cavernous, and supraclinoid segments of bilateral internal carotid arteries demonstrate stenosis. Arthrosclerosis the cavernous and supraclinoid segments of the bilateral carotid arteries. The ophthalmic artery origins are visualized and normal. The anterior and middle cerebral arteries are patent bilaterally. The anterior communicating artery is patent. Posterior communicating arteries patent. 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 Occlusion of the left vertebral artery at the level of V3 extending beyond the field of view in with reconstitution of the left V4 segment with contrasted blood. For additional description of vertebral arteries refer to CTA neck of the same day. Patent appearance to the origin of the basilar and superior cerebellar arteries, anterior inferior cerebellar arteries, and posteroinferior cerebellar arteries. No saccular aneurysm is demonstrated. On this study is optimized for arterial evaluation the dural venous sinuses demonstrate no evidence of thrombosis. 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 Occlusion of the left vertebral artery at the level of V3 extending beyond field of view with reconstitution. Arthrosclerosis of the cavernous and supraclinoid segments of the bilateral carotid arteries without significant stenosis. I have personally reviewed the images of this examination and agree with the resident's findings and interpretation. Interpreted by: Christopher Pelaez DO Preliminary Report By: Alfonso Lorenzo Electronically signed By Christopher Pelaez DO Dictated Date: 10/02/2023 4:27:28 PM Prelim Date: 10/03/2023 10:41:49 AM Sign Date: 10/03/2023 10:41:49 AM Ordering Provider: ABDULLAHI AGUIRRE [facility] ([place] ANGIOGRAPHY NECK W/CONTRA Kassidy 10-03-2023 CT ANGIOGRAPHY NECK W/CONTRAST ORIGINAL EXAMINATION: CTA OF THE NECK10/02/2023 3:31 pm TECHNIQUE: CTA of the neck was performed with the administration of intravenous contrast. Multiplanar reformatted images are provided for review. MIP images are provided for review. Stenosis of the internal carotid arteries measured using NASCET criteria. Automated exposure control, iterative reconstruction, and/or weight based adjustment of the mA/kV was utilized to reduce the radiation dose to as low as reasonably achievable. COMPARISON: 10/01/2023 CT head HISTORY: ORDERING SYSTEM PROVIDED HISTORY: Reason for Exam: embolic stroke FINDINGS: Significant calcified arthrosclerosis of the carotid arteries. Approximately 61% stenosis of the right internal carotid artery just distal to the carotid bifurcation and approximately 65% stenosis of the left carotid artery just distal to the carotid bifurcation. Just distal to the carotid bifurcation bilaterally, moderate stenosis of the left external carotid artery, and severe stenosis of the right external carotid artery. Total occlusion of the left vertebral artery from the origin to the V3 segment with retrograde reconstitution of contrasted blood. Arteriosclerosis of the aortic arch with sclerosis but no stenosis of the origins of the innominate, bilateral common carotid arteries, bilateral subclavian arteries, and right vertebral artery. There is no evidence of arterial dissection, occlusion, extravasation of contrast material, arteriovenous fistula, or pseudoaneurysm. 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 Moderate stenosis of bilateral internal carotid arteries per NASCET criteria. Moderate stenosis of the left external carotid artery just distal to carotid bifurcation and severe stenosis of the right external carotid artery just distal to the carotid bifurcation. I have personally reviewed the images of this examination and agree with the resident's findings and interpretation. Interpreted by: Christopher Pelaez DO Preliminary Report By: Alfonso Lorenzo Electronically signed By Christopher Pelaez DO Dictated Date: 10/02/2023 4:04:40 PM Prelim Date: 10/03/2023 10:41:06 AM Sign Date: 10/03/2023 10:41:06 AM Ordering Provider: ABDULLAHI AGUIRRE [facility] ([place] CT HEAD OR BRAIN W/O CONTRAS Ton 10-03-2023 CT HEAD OR BRAIN W/O CONTRAST ADDENDUM ADDENDUM: I agree with the resident's findings and interpretation. Interpreted by: Christopher Pelaez DO Preliminary Report By: Christopher Pelaez DO Electronically signed By Christopher Pelaez DO Dictated Date: 10/03/2023 10:39:09 AM Prelim Date: 10/01/2023 11:42:21 PM Sign Date: 10/03/2023 10:39:48 AM Ordering Provider: TITA [facility]ISH ORIGINAL EXAMINATION: CT OF THE HEAD WITHOUT CONTRAST 10/01/2023 11:23 pm TECHNIQUE: CT of the head was performed without the administration of intravenous contrast. Automated exposure control, iterative reconstruction, and/or weight based adjustment of the mA/kV was utilized to reduce the radiation dose to as low as reasonably achievable. COMPARISON: None. HISTORY: ORDERING SYSTEM PROVIDED HISTORY: Reason for Exam: facial droop arm weakness - now resolved FINDINGS: BRAIN/VENTRICLES: No evidence of acute intracranial hemorrhage, midline shift, or mass effect. Carvalho-white differentiation is well maintained without evidence of acute infarction. No intra-axial mass or extra-axial fluid collection. The ventricular system and basal cisterns are patent. Proportionate enlargement of the ventricles and sulci is compatible with mild volume loss. Small foci of hypoattenuation throughout the supratentorial white matter are nonspecific but most likely sequela of mild chronic microvascular angiopathy. Carotid siphon and vertebral artery calcifications. ORBITS: No acute orbital abnormality. SINUSES: The visible paranasal sinuses and mastoid air cells are essentially clear. SOFT TISSUE/SKULL: No acute abnormality of the visualized skull or soft tissues. IMPRESSION: No acute intracranial abnormality. I have personally reviewed the images of this examination and agree with the resident's findings and interpretation. Interpreted by: Aidan Westbrook Preliminary Report By: Calvin Patel Electronically signed By Aidan Westbrook Dictated Date: 10/01/2023 11:38:06 PM Prelim Date: 10/01/2023 11:42:21 PM Sign Date: 10/01/2023 11:46:49 PM Ordering Provider: TITA Echevarria [facility] ([place]) LABORATORYOrdered By: Kwasi Rob on 10-03-2023 Blood Glucose Testing Reason Routine (10/03/23 4:43 PM) [facility] Work Phone: Glucose [Mass/Vol] 267 mg/dL High 82 - 115 mg/dL [facility] Work Phone: Blood Glucose Testing Reason Routine (10/03/23 11:39 AM) [facility] Work Phone: Glucose [Mass/Vol] 210 mg/dL High 82 - 115 mg/dL [facility] Work Phone: Blood Glucose Testing Reason Routine (10/03/23 7:58 AM) [facility] Work Phone: Glucose [Mass/Vol] 214 mg/dL High 82 - 115 mg/dL [facility] Work Phone: LABORATORYOrdered By: SYSTEM SYSTEM on 10-03-2023 Albumin BCP dye [Mass/Vol] 3.1 G/dL Low 3.4 - 4.8 G/dL AO ADM SS Albumin/Globulin [Mass ratio] 0.8 {ratio} Low 1.1 - 2.5 ratio AO ADM SS ALP [Catalytic activity/Vol] 93 U/L Normal 40 - 135 U/L AO ADM SS ALT With P-5'-P [Catalytic activity/Vol] 20 U/L Normal 16 - 63 U/L AO ADM SS AST With P-5'-P [Catalytic activity/Vol] 15 U/L Normal 10 - 40 U/L AO ADM SS Basophil, Absolute 0.1 103/mcL Normal 0.0 - 0.2 10^3/mcL AO Workflow SS Basophils/100 WBC (Bld) 1.0 % Normal 0.0 - 2.5 % AO Workflow SS Bilirubin [Mass/Vol] 0.5 mg/dL Normal 0.2 - 1 .0 mg/dL AO ADM SS Comment on above: Interpretive Data: U se of this assay is not recommended for patients undergoing treatment with eltrombopag due to the potential for falsely elevated results. Calcium [Mass/Vol] 8.9 mg/dL Normal 8.4 - 10. 2 mg/dL AO ADM SS Chloride [Moles/Vol] 104 mmol/L Normal 98 - 10 7 mmol/L AO ADM SS CO2 [Moles/Vol] 27 mmol/L Normal 23 - 31 mmol/L AO ADM SS Creatinine [Mass/Vol] 1.05 mg/dL Normal 0.70 - 1.30 mg/dL AO ADM SS Electrolyte Balance 7.0 mEq/L Normal 4.0 - 15 .0 mEq/L AO ADM SS Eosinophil, Absolute 0.4 103/mcL Normal 0.0 - 0 .4 10^3/mcL AO Workflow SS Eosinophils/100 WBC (Bld) 5.1 % Normal 0.0 - 7.0 % AO Workflow SS Erythrocyte distribution width (RBC) [Ratio] 18.3 % High 11.5 - 14.5 % AO Workflow SS GFR/1.73 sq M.predicted among blacks MDRD (S/P/Bld) [Vol rate/Area] 87 ml/min/1.73sqm Invalid Interpretation Code AO Chemistry S Comment on above: Interpretive Data: GFR Population mean for , Non- Americans Ages 20-29 = 116 mL/min/1.73 sq.m. Ages 30-39 = 107 mL/min/1.73 sq.m. Ages 40-49 = 99 mL/min/1.73 sq.m. Ages 50-59 = 93 mL/min/1.73 sq.m. Ages 60-69 = 85 mL/min/1.73 sq.m. Ages 70+ = 75 mL/min/1.73 sq.m. Chronic Kidney Disease: Less than 60 mL/min/1.73 square meters End Stage Renal Disease: Less than 15 mL/min/1.73 square meters GFR/1.73 sq M.predicted among non-blacks MDRD (S/P/Bld) [Vol rate/Area] 72 ml/min/1.73sqm Invalid Interpretation Code AO Chemistry S Comment on above: Interpretive Data: GFR Population mean for , Non- Americans Ages 20-29 = 116 mL/min/1.73 sq.m. Ages 30-39 = 107 mL/min/1.73 sq.m. Ages 40-49 = 99 mL/min/1.73 sq.m. Ages 50-59 = 93 mL/min/1.73 sq.m. Ages 60-69 = 85 mL/min/1.73 sq.m. Ages 70+ = 75 mL/min/1.73 sq.m. Chronic Kidney Disease: Less than 60 mL/min/1.73 square meters End Stage Renal Disease: Less than 15 mL/min/1.73 square meters Globulin 3.9 G/dL Invalid Interpretation Code AO ADM SS Glucose [Mass/Vol] 158 mg/dL High 80 - 115 mg/dL AO ADM SS Hematocrit (Bld) [Volume fraction] 32.0 % Low 42.0 - 52.0 % AO Workflow SS Hemoglobin (Bld) [Mass/Vol] 10.5 G/dL Low 14.0 - 18.0 G/dL AO Workflow SS Lymphocyte, Absolute 1.6 103/mcL Normal 0.8 - 3 .9 10^3/mcL AO Workflow SS Lymphocytes/100 WBC (Bld) 20.4 % Normal 10.0 - 50.0 % AO Workflow SS Magnesium [Mass/Vol] 2.0 mg/dL Normal 1.8 - 2 .4 mg/dL AO ADM SS MCH (RBC) [Entitic mass] 24.5 pg Low 27.0 - 31.2 pg AO Workflow SS MCHC 32.9 G/dL Normal 31.8 - 35.4 G/dL AO Workflow SS MCV (RBC) [Entitic vol] 74.3 fL Low 80.0 - 94.0 fL AO Workflow SS Monocyte, Absolute 0.9 103/mcL Normal 0.2 - 1.0 10^3/mcL AO Workflow SS Monocytes/100 WBC (Bld) 11.5 % Normal 1.7 - 13.0 % AO Workflow SS Neutrophil, Absolute 4.7 103/mcL Normal 2.9 - 6 .2 10^3/mcL AO Workflow SS Neutrophils/100 WBC (Bld) 62.0 % Normal 37.0 - 80.0 % AO Workflow SS Platelet mean volume (Bld) [Entitic vol] 7.6 fL Normal 7.4 - 10.4 fL AO Workflow SS Platelets (Bld) [#/Vol] 211 103/mcL Normal 130 - 400 10^3/mcL AO Workflow SS Potassium [Moles/Vol] 4.5 mmol/L Normal 3.5 - 5.1 mmol/L AO ADM SS Protein [Mass/Vol] 7.0 G/dL Normal 6.4 - 8.2 G/dL AO ADM SS RBC (Bld) [#/Vol] 4.31 106/mcL Normal 4.04 - 6.13 10^6/mcL AO Workflow SS Sodium [Moles/Vol] 138 mmol/L Normal 136 - 145 mmol/L AO ADM SS Urea nitrogen [Mass/Vol] 18 mg/dL Normal 7 - 18 mg/dL AO ADM SS Urea nitrogen/Creatinine [Mass ratio] 17 ratio Normal 7 - 27 ratio AO ADM SS WBC (Bld) [#/Vol] 7.6 103/mcL Normal 4.6 - 10.8 10^3/mcL AO Workflow SS MGon 10-03-2023 Magnesium [Mass/Vol] 2.0 mg/dL Normal 1.8-2.4 [facility] ([place]) Comment on above: Performed By: #### M G, GFR, ADIFF, ANEU, CBC, CMP ####[address] [place], [place] [address] Nursing Noteon 10-03-2023 Nursing Note Pt arrived from [facility], ambulated to bed, NIH scale 1, pt A&O x 4, denies numbness or tingling, denies headache or dizziness, denies needs at this time, call light and belongings within reach, will monitor. Normal [facility] .Auto DiffOrdered By: SYSTEM SYSTEM on 10-02-2023 Basophil, Absolute 0.1 103/mcL Normal 0.0-0.2 AO Wo rkflow SS Comment on above: Performed By: #### C BC, ADIFF, MG, GFR, ANEU, CMP ####[address] [place], [place] [address] Basophils/100 WBC (Bld) 1.0 % Normal 0.0-2.5 A O Workflow SS Comment on above: Performed By: #### C BC, ADIFF, MG, GFR, ANEU, CMP ####[address] [place], [place] [address] Eosinophil, Absolute 0.3 103/mcL Normal 0.0-0.4 AO Workflow SS Comment on above: Performed By: #### C BC, ADIFF, MG, GFR, ANEU, CMP ####[address] [place], [place] [address] Eosinophils/100 WBC (Bld) 3.8 % Normal 0.0-7.0 AO Workflow SS Comment on above: Performed By: #### C BC, ADIFF, MG, GFR, ANEU, CMP ####[address] [place], [place] [address] Lymphocyte, Absolute 1.6 103/mcL Normal 0.8-3.9 AO Workflow SS Comment on above: Performed By: #### C BC, ADIFF, MG, GFR, ANEU, CMP ####[address] [place], [place] [address] Lymphocytes/100 WBC (Bld) 23.2 % Normal 10.0-50.0 AO Workflow SS Comment on above: Performed By: #### C BC, ADIFF, MG, GFR, ANEU, CMP ####[address] [place], [place] [address] Monocyte, Absolute 0.7 103/mcL Normal 0.2-1.0 AO Wo rkflow SS Comment on above: Performed By: #### C BC, ADIFF, MG, GFR, ANEU, CMP ####[address] [place], [place] [address] Monocytes/100 WBC (Bld) 9.7 % Normal 1.7-13.0 A O Workflow SS Comment on above: Performed By: #### C BC, ADIFF, MG, GFR, ANEU, CMP ####[address] [place], [place] [address] Neutrophils/100 WBC (Bld) 62.3 % Normal 37.0-80.0 AO Workflow SS Comment on above: Performed By: #### C BC, ADIFF, MG, GFR, ANEU, CMP ####[address] [place], [place] [address] .GFRon 10-02-2023 GFR 76 ml/min/1.73sqm Normal [facility] ([place]) Comment on above: Result Comment: GFR Population mean for , Non- Americans Ages 20-29 = 116 mL/min/1.73 sq.m. Ages 30-39 = 107 mL/min/1.73 sq.m. Ages 40-49 = 99 mL/min/1.73 sq.m. Ages 50-59 = 93 mL/min/1.73 sq.m. Ages 60-69 = 85 mL/min/1.73 sq.m. Ages 70+ = 75 mL/min/1.73 sq.m. Chronic Kidney Disease: Less than 60 mL/min/1.73 square meters End Stage Renal Disease: Less than 15 mL/min/1.73 square meters Performed By: #### C BC, ADIFF, MG, GFR, ANEU, CMP ####[address] [place], [place] [address] GFR Non- 63 ml/min/1.73sqm Normal [facility] ([place]) Comment on above: Result Comment: GFR Population mean for , Non- Americans Ages 20-29 = 116 mL/min/1.73 sq.m. Ages 30-39 = 107 mL/min/1.73 sq.m. Ages 40-49 = 99 mL/min/1.73 sq.m. Ages 50-59 = 93 mL/min/1.73 sq.m. Ages 60-69 = 85 mL/min/1.73 sq.m. Ages 70+ = 75 mL/min/1.73 sq.m. Chronic Kidney Disease: Less than 60 mL/min/1.73 square meters End Stage Renal Disease: Less than 15 mL/min/1.73 square meters Performed By: #### C BC, ADIFF, MG, GFR, ANEU, CMP ####[address] [place], [place] [address] .NEUABSOrdered By: SYSTEM SY STEM on 10-02-2023 Neutrophil, Absolute 4.4 103/mcL Normal 2.9-6.2 AO Workflow SS Comment on above: Performed By: #### C BC, ADIFF, MG, GFR, ANEU, CMP ####[address] [place], [place] [address] A1Con 10-02-2023 HbA1c (Bld) [Mass fraction] 7.7 % High 4.3-6.4 [facility] ([place] Comment on above: Performed By: #### F T4, LIPID, A1C, TSH #### [id number] [place], [place] [address] CBCOrdered By: SYSTEM SYSTEM on 10-02-2023 Erythrocyte distribution width (RBC) [Ratio] 18.7 % High 11.5-14.5 AO Workflow SS Comment on above: Performed By: #### C BC, ADIFF, MG, GFR, ANEU, CMP ####[address] [place], [place] [address] Hematocrit (Bld) [Volume fraction] 33.0 % Low 42.0-52.0 AO Workflow SS Comment on above: Performed By: #### C BC, ADIFF, MG, GFR, ANEU, CMP ####[address] [place], [place] [address] MCH (RBC) [Entitic mass] 24.6 pg Low 27.0-31.2 AO Workflow SS Comment on above: Performed By: #### C BC, ADIFF, MG, GFR, ANEU, CMP ####[address] [place], [place] [address] MCHC 32.8 G/dL Normal 31.8-35.4 AO Workflow SS Comment on above: Performed By: #### C BC, ADIFF, MG, GFR, ANEU, CMP ####[address] [place], [place] [address] MCV (RBC) [Entitic vol] 75.0 fL Low 80.0-94.0 A O Workflow SS Comment on above: Performed By: #### C BC, ADIFF, MG, GFR, ANEU, CMP ####[address] [place], [place] [address] Platelet mean volume (Bld) [Entitic vol] 7.5 fL Normal 7.4-10.4 AO Workflow SS Comment on above: Performed By: #### C BC, ADIFF, MG, GFR, ANEU, CMP ####[address] [place], [place] [address] CBCon 10-02-2023 Hgb 10.8 G/dL Low 14.0-18.0 [facility] ([place] Comment on above: Performed By: #### C BC, ADIFF, MG, GFR, ANEU, CMP ####[address] [place], [place] [address] Platelet 220 10 3/mcL Normal 130-400 [facility] ([place] Comment on above: Performed By: #### C BC, ADIFF, MG, GFR, ANEU, CMP ####[address] [place], [place] [address] RBC 4.40 10 6/mcL Normal 4.04-6.13 [facility] ([place] Comment on above: Performed By: #### C BC, ADIFF, MG, GFR, ANEU, CMP ####[address] [place], [place] [address] WBC 7.0 10 3/mcL Normal 4.6-10.8 [facility] ([place] Comment on above: Performed By: #### C BC, ADIFF, MG, GFR, ANEU, CMP ####[address] [place], [place] [address] CMPon 10-02-2023 Albumin Level 3.2 G/dL Low 3.4-4.8 [facility] ([place] Comment on above: Performed By: #### C BC, ADIFF, MG, GFR, ANEU, CMP ####[address] [place], [place] [address] ALT [Catalytic activity/Vol] 25 U/L Normal 16-63 [facility] ([place] Comment on above: Performed By: #### C BC, ADIFF, MG, GFR, ANEU, CMP ####[address] [place], [place] [address] AST [Catalytic activity/Vol] 17 U/L Normal 10-40 [facility] ([place] Comment on above: Performed By: #### C BC, ADIFF, MG, GFR, ANEU, CMP ####[address] [place], [place] [address] Bili Total 0.4 mg/dL Normal 0.2-1.0 [facility] ([place] Comment on above: Result Comment: Use of this assay is not recommended for patients undergoing treatment with eltrombopag due to the potential for falsely elevated results. Performed By: #### C BC, ADIFF, MG, GFR, ANEU, CMP ####[address] [place], [place] [address] BUN/Creatinine Ratio 21 ratio Normal 7-27 [facility] ([place]) Comment on above: Performed By: #### C BC, ADIFF, MG, GFR, ANEU, CMP ####[address] [place], [place] [address] Total Protein 7.3 G/dL Normal 6.4-8.2 [facility] ([place] Comment on above: Performed By: #### C BC, ADIFF, MG, GFR, ANEU, CMP ####[address] [place], [place] [address] CMPOrdered By: SYSTEM SYSTEM on 10-02-2023 Albumin/Globulin [Mass ratio] 0.8 {ratio} Low 1.1-2.5 AO ADM SS Comment on above: Performed By: #### C BC, ADIFF, MG, GFR, ANEU, CMP ####[address] [place], [place] [address] ALP [Catalytic activity/Vol] 99 U/L Normal 40-135 AO ADM SS Comment on above: Performed By: #### C BC, ADIFF, MG, GFR, ANEU, CMP ####[address] [place], [place] [address] Calcium [Mass/Vol] 8.8 mg/dL Normal 8.4-10.2 AO ADM SS Comment on above: Performed By: #### C BC, ADIFF, MG, GFR, ANEU, CMP ####[address] [place], [place] [address] Chloride [Moles/Vol] 105 mmol/L Normal 98-107 AO A DM SS Comment on above: Performed By: #### C BC, ADIFF, MG, GFR, ANEU, CMP ####[address] [place], [place] [address] CO2 [Moles/Vol] 24 mmol/L Normal 23-31 AO ADM SS Comment on above: Performed By: #### C BC, ADIFF, MG, GFR, ANEU, CMP ####[address] [place], [place] [address] Creatinine [Mass/Vol] 1.18 mg/dL Normal 0.70-1.30 AO ADM SS Comment on above: Performed By: #### C BC, ADIFF, MG, GFR, ANEU, CMP ####[address] [place], [place] [address] Electrolyte Balance 11.0 mEq/L Normal 4.0-15.0 AO AD M SS Comment on above: Performed By: #### C BC, ADIFF, MG, GFR, ANEU, CMP ####[address] [place], [place] [address] Globulin 4.1 G/dL Normal AO ADM SS Comment on above: Performed By: #### C BC, ADIFF, MG, GFR, ANEU, CMP ####[address] [place], [place] [address] Glucose [Mass/Vol] 80 mg/dL Normal 80-115 AO ADM SS Comment on above: Performed By: #### C BC, ADIFF, MG, GFR, ANEU, CMP ###[address] [place], [place] [address] Potassium [Moles/Vol] 3.9 mmol/L Normal 3.5-5.1 AO ADM SS Comment on above: Performed By: #### C BC, ADIFF, MG, GFR, ANEU, CMP ####[address] [place], [place] [address] Sodium [Moles/Vol] 140 mmol/L Normal 136-145 AO ADM SS Comment on above: Performed By: #### C BC, ADIFF, MG, GFR, ANEU, CMP ###[address] [place], [place] [address] Urea nitrogen [Mass/Vol] 25 mg/dL High 7-18 AO ADM SS Comment on above: Performed By: #### C BC, ADIFF, MG, GFR, ANEU, CMP ####[address] [place], [place] [address] FT4on 10-02-2023 Free T4 [Mass/Vol] 0.99 ng/dL Normal 0.76-1.46 [facility] ([place]) Comment on above: Performed By: #### F T4, LIPID, A1C, TSH ###[address] [place], [place] [address] LABORATORYOrdered By: SYSTEM SYSTEM on 10-02-2023 Albumin BCP dye [Mass/Vol] 3.2 G/dL Low 3.4 - 4.8 G/dL AO ADM SS ALT With P-5'-P [Catalytic activity/Vol] 25 U/L Normal 16 - 63 U/L AO ADM SS AST With P-5'-P [Catalytic activity/Vol] 17 U/L Normal 10 - 40 U/L AO ADM SS Bilirubin [Mass/Vol] 0.4 mg/dL Normal 0.2 - 1 .0 mg/dL AO ADM SS Comment on above: Interpretive Data: U se of this assay is not recommended for patients undergoing treatment with eltrombopag due to the potential for falsely elevated results. GFR/1.73 sq M.predicted among blacks MDRD (S/P/Bld) [Vol rate/Area] 76 ml/min/1.73sqm Invalid Interpretation Code AO Chemistry S Comment on above: Interpretive Data: GFR Population mean for , Non- Americans Ages 20-29 = 116 mL/min/1.73 sq.m. Ages 30-39 = 107 mL/min/1.73 sq.m. Ages 40-49 = 99 mL/min/1.73 sq.m. Ages 50-59 = 93 mL/min/1.73 sq.m. Ages 60-69 = 85 mL/min/1.73 sq.m. Ages 70+ = 75 mL/min/1.73 sq.m. Chronic Kidney Disease: Less than 60 mL/min/1.73 square meters End Stage Renal Disease: Less than 15 mL/min/1.73 square meters GFR/1.73 sq M.predicted among non-blacks MDRD (S/P/Bld) [Vol rate/Area] 63 ml/min/1.73sqm Invalid Interpretation Code AO Chemistry S Comment on above: Interpretive Data: GFR Population mean for , Non- Americans Ages 20-29 = 116 mL/min/1.73 sq.m. Ages 30-39 = 107 mL/min/1.73 sq.m. Ages 40-49 = 99 mL/min/1.73 sq.m. Ages 50-59 = 93 mL/min/1.73 sq.m. Ages 60-69 = 85 mL/min/1.73 sq.m. Ages 70+ = 75 mL/min/1.73 sq.m. Chronic Kidney Disease: Less than 60 mL/min/1.73 square meters End Stage Renal Disease: Less than 15 mL/min/1.73 square meters Hemoglobin (Bld) [Mass/Vol] 10.8 G/dL Low 14.0 - 18.0 G/dL AO Workflow SS Platelets (Bld) [#/Vol] 220 103/mcL Normal 130 - 400 10^3/mcL AO Workflow SS Protein [Mass/Vol] 7.3 G/dL Normal 6.4 - 8.2 G/dL AO ADM SS RBC (Bld) [#/Vol] 4.40 106/mcL Normal 4.04 - 6.13 10^6/mcL AO Workflow SS Urea nitrogen/Creatinine [Mass ratio] 21 ratio Normal 7 - 27 ratio AO ADM SS WBC (Bld) [#/Vol] 7.0 103/mcL Normal 4.6 - 10.8 10^3/mcL AO Workflow SS Free T4 [Mass/Vol] 0.99 ng/dL Normal 0.76 - 1.46 ng/dL AO ADM SS HbA1c (Bld) [Mass fraction] 7.7 % High 4.3 - 6.4 % AO ADM SS TSH Qn 3.31 m[IU]/L Normal 0.36 - 3.74 mcIU/mL AO ADM SS LABORATORYOrdered By: Flora Peres on 10-02-2023 Cholesterol [Mass/Vol] 182 mg/dL Normal 0 - 2 00 mg/dL AO ADM SS Comment on above: Interpretive Data: C holesterol Reference Interval: Less than 200 Desirable 200-239 Borderline high risk 240 and above High risk Cholesterol in HDL [Mass/Vol] 37 mg/dL Low 40 - 60 mg/dL AO ADM SS Cholesterol in LDL [Mass/Vol] 80 mg/dL Normal 0 - 130 mg/dL AO ADM SS Triglyceride [Mass/Vol] 323 mg/dL High 0 - 150 mg/dL AO ADM SS Comment on above: Interpretive Data: T riglyceride Reference Interval: Less than 150 Normal 150-199 Borderline high risk 200-499 High risk 500 or higher Very high risk LIPIDon 10-02-2023 Cholesterol [Mass/Vol] 182 mg/dL Normal 0-200 [facility] ([place] Comment on above: Result Comment: Chol esterol Reference Interval: Less than 200 Desirable 200-239 Borderline high risk 240 and above High risk Performed By: #### F T4, LIPID, A1C, TSH #### [address] [address] Cholesterol in HDL [Mass/Vol] 37 mg/dL Low 40-60 [facility] ([place]) Comment on above: Performed By: #### F T4, LIPID, A1C, TSH #### [id number] [place], [place] [address] Cholesterol in LDL [Mass/Vol] 80 mg/dL Normal 0-130 [facility] ([place] Comment on above: Performed By: #### F T4, LIPID, A1C, TSH #### [id number] [place], [place] [address] Triglyceride [Mass/Vol] 323 mg/dL High 0-150 A [facility] ([place]) Comment on above: Result Comment: Trig lyceride Reference Interval: Less than 150 Normal 150-199 Borderline high risk 200-499 High risk 500 or higher Very high risk Performed By: #### F T4, LIPID, A1C, TSH #### [address] [place], [place] [address] MGOrdered By: SYSTEM SYSTEM on 10-02-2023 Magnesium [Mass/Vol] 1.9 mg/dL Normal 1.8-2.4 AO A DM SS Comment on above: Performed By: #### C BC, ADIFF, MG, GFR, ANEU, CMP ####[address] [place], [place] [address] MRI BRAIN W/O CONTRASTon MRI BRAIN W/O CONTRAST ORIGINAL HISTORY: TIA COMPARISON: Head CT previous day TECHNIQUE: 1. Sagittal T1-weighted images. 2. Axial T2-weighted and T2*-weighted images. 3. Axial FLAIR images. 4. Axial diffusion-weighted images with ADC map. FINDINGS: There are numerous punctate foci of restricted diffusion in the right cerebral hemisphere, most prominently the frontal and occipital lobes, most involving cortex. There is mild T2 hyperintensity associated with the larger lesions. The ventricles and sulci are normal to mildly enlarged. There are no abnormal intra or extra-axial fluid collections. The orbital contents are normal in appearance. The paranasal sinuses are clear. 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 Interpreted by: Julius Mccall MD Preliminary Report By: Julius Mccall MD Electronically signed By Julius Mccall MD Dictated Date: 10/02/2023 8:32:47 AM Prelim Date: 10/02/2023 8:38:30 AM Sign Date: 10/02/2023 8:38:30 AM Ordering Provider: CHITO Echevarria [facility] ([place]) TSHon 10-02-2023 TSH Qn 3.31 m[IU]/L Normal 0.36-3.74 [facility] ([place] Comment on above: Performed By: #### F T4, LIPID, A1C, TSH #### [address] [place], [place] [address] .Auto Diffon 10-01-2023 Basophil, Absolute 0.1 10 3/mcL Normal 0.0-0.2 [facility] ([place]) Comment on above: Performed By: #### A JORGE, CMP, ADIFF, TROPHS, CBC, GFR, MDW, MG ####[address] [place] [address] Basophils/100 WBC (Bld) 1.4 % Normal 0.0-2.5 A [facility] ([place] Comment on above: Performed By: #### A JORGE, CMP, ADIFF, TROPHS, CBC, GFR, MDW, MG ####[address] [address] Eosinophil, Absolute 0.4 10 3/mcL Normal 0.0-0.4 [facility] ([place] Comment on above: Performed By: #### A JORGE, CMP, ADIFF, TROPHS, CBC, GFR, MDW, MG ####[address] [address] Eosinophils/100 WBC (Bld) 3.7 % Normal 0.0-7.0 [facility] ([place] Comment on above: Performed By: #### A JORGE, CMP, ADIFF, TROPHS, CBC, GFR, MDW, MG ####[address] [address] Lymphocyte, Absolute 2.5 10 3/mcL Normal 0.8-3.9 [facility] ([place] Comment on above: Performed By: #### A JORGE, CMP, ADIFF, TROPHS, CBC, GFR, MDW, MG ####[address] [place], [place] [address] Lymphocytes/100 WBC (Bld) 23.6 % Normal 10.0-50.0 [facility] ([place] Comment on above: Performed By: #### A JORGE, CMP, ADIFF, TROPHS, CBC, GFR, MDW, MG ####[address] [place], [place] [address] Monocyte, Absolute 1.0 10 3/mcL Normal 0.2-1.0 [facility] ([place] Comment on above: Performed By: #### A JORGE, CMP, ADIFF, TROPHS, CBC, GFR, MDW, MG ####[address] [place], [place] [address] Monocytes/100 WBC (Bld) 9.7 % Normal 1.7-13.0 A [facility] ([place] Comment on above: Performed By: #### A JORGE, CMP, ADIFF, TROPHS, CBC, GFR, MDW, MG ####[address] [place], [place] [address] Neutrophils/100 WBC (Bld) 61.6 % Normal 37.0-80.0 [facility] ([place] Comment on above: Performed By: #### A JORGE, CMP, ADIFF, TROPHS, CBC, GFR, MDW, MG ####[address] [place], [place] [address] .GFRon 10-01-2023 GFR 59 ml/min/1.73sqm Normal [facility] ([place] Comment on above: Result Comment: GFR Population mean for , Non- Americans Ages 20-29 = 116 mL/min/1.73 sq.m. Ages 30-39 = 107 mL/min/1.73 sq.m. Ages 40-49 = 99 mL/min/1.73 sq.m. Ages 50-59 = 93 mL/min/1.73 sq.m. Ages 60-69 = 85 mL/min/1.73 sq.m. Ages 70+ = 75 mL/min/1.73 sq.m. Chronic Kidney Disease: Less than 60 mL/min/1.73 square meters End Stage Renal Disease: Less than 15 mL/min/1.73 square meters Performed By: #### A JORGE, CMP, ADIFF, TROPHS, CBC, GFR, MDW, MG ####[address] [place], [place] [address] GFR Non- 48 ml/min/1.73sqm Normal [facility] ([place] Comment on above: Result Comment: GFR Population mean for , Non- Americans Ages 20-29 = 116 mL/min/1.73 sq.m. Ages 30-39 = 107 mL/min/1.73 sq.m. Ages 40-49 = 99 mL/min/1.73 sq.m. Ages 50-59 = 93 mL/min/1.73 sq.m. Ages 60-69 = 85 mL/min/1.73 sq.m. Ages 70+ = 75 mL/min/1.73 sq.m. Chronic Kidney Disease: Less than 60 mL/min/1.73 square meters End Stage Renal Disease: Less than 15 mL/min/1.73 square meters Performed By: #### A JORGE, CMP, ADIFF, TROPHS, CBC, GFR, MDW, MG ####[address] [place], [place] [address] .MDWon 10-01-2023 Monocyte Distribution Width 18.06 Normal 0.00-20.00 [facility] ([place]) Comment on above: Result Comment: For ED adult patients suspected of sepsis, MDW<=20.0 does not rule out sepsis or risk of sepsis Performed By: #### A JORGE, CMP, ADIFF, TROPHS, CBC, GFR, MDW, MG ####[address] [place], [place] [address] .NEUABSon 10-01-2023 Neutrophil, Absolute 6.5 10 3/mcL High 2.9-6.2 [facility] ([place]) Comment on above: Performed By: #### A JORGE, CMP, ADIFF, TROPHS, CBC, GFR, MDW, MG ####[address] [place], [place] [address] CBCon 10-01-2023 Erythrocyte distribution width (RBC) [Ratio] 18.8 % High 11.5-14.5 [facility] ([place]) Comment on above: Performed By: #### A JORGE, CMP, ADIFF, TROPHS, CBC, GFR, MDW, MG #### [address] [address] Hematocrit (Bld) [Volume fraction] 33.8 % Low 42.0-52.0 [facility] ([place]) Comment on above: Performed By: #### A JORGE, CMP, ADIFF, TROPHS, CBC, GFR, MDW, MG #### [address] [address] Hgb 11.0 G/dL Low 14.0-18.0 [facility] ([place]) Comment on above: Performed By: #### A JORGE, CMP, ADIFF, TROPHS, CBC, GFR, MDW, MG #### [address] [address] MCH (RBC) [Entitic mass] 24.3 pg Low 27.0-31.2 [facility] [facility] [place] Comment on above: Performed By: #### A JORGE, CMP, ADIFF, TROPHS, CBC, GFR, MDW, MG #### [address] [address] MCHC 32.5 G/dL Normal 31.8-35.4 [facility] ([place] Comment on above: Performed By: #### A JORGE, CMP, ADIFF, TROPHS, CBC, GFR, MDW, MG #### [address] [address] MCV (RBC) [Entitic vol] 74.7 fL Low 80.0-94.0 [facility] ([place] Comment on above: Performed By: #### A JORGE, CMP, ADIFF, TROPHS, CBC, GFR, MDW, MG #### [address] [address] Platelet 250 10 3/mcL Normal 130-400 [facility] ([place] Comment on above: Performed By: #### A JORGE, CMP, ADIFF, TROPHS, CBC, GFR, MDW, MG #### [address] [address] Platelet mean volume (Bld) [Entitic vol] 7.7 fL Normal 7.4-10.4 [facility] ([place] Comment on above: Performed By: #### A JORGE, CMP, ADIFF, TROPHS, CBC, GFR, MDW, MG #### [address] [address] RBC 4.52 10 6/mcL Normal 4.04-6.13 [facility] ([place] Comment on above: Performed By: #### A JORGE, CMP, ADIFF, TROPHS, CBC, GFR, MDW, MG #### [address] [address] WBC 10.6 10 3/mcL Normal 4.6-10.8 [facility] ([place] Comment on above: Performed By: #### A JORGE, CMP, ADIFF, TROPHS, CBC, GFR, MDW, MG #### [address] [address] CMPon 10-01-2023 Albumin Level 3.4 G/dL Normal 3.4-4.8 [facility] ([place] Comment on above: Performed By: #### A JORGE, CMP, ADIFF, TROPHS, CBC, GFR, MDW, MG ####[id number] [place], [place] [address] Albumin/Globulin [Mass ratio] 0.8 {ratio} Low 1.1-2.5 [facility] ([place] Comment on above: Performed By: #### A JORGE, CMP, ADIFF, TROPHS, CBC, GFR, MDW, MG ####[facility] [place], [place] [address] ALP [Catalytic activity/Vol] 97 U/L Normal 40-135 [facility] ([place] Comment on above: Performed By: #### A JORGE, CMP, ADIFF, TROPHS, CBC, GFR, MDW, MG ####[address] [place], [place] [address] ALT [Catalytic activity/Vol] 24 U/L Normal 16-63 [facility] ([place] Comment on above: Performed By: #### A JORGE, CMP, ADIFF, TROPHS, CBC, GFR, MDW, MG ####[address] [place], [place] [address] AST [Catalytic activity/Vol] 19 U/L Normal 10-40 [facility] ([place] Comment on above: Performed By: #### A JORGE, CMP, ADIFF, TROPHS, CBC, GFR, MDW, MG ####[address] [place], [place] [address] Bili Total 0.5 mg/dL Normal 0.2-1.0 [facility] ([place] Comment on above: Result Comment: Use of this assay is not recommended for patients undergoing treatment with eltrombopag due to the potential for falsely elevated results. Performed By: #### A JORGE, CMP, ADIFF, TROPHS, CBC, GFR, MDW, MG ####[address] [place], [place] [address] BUN/Creatinine Ratio 20 ratio Normal 7-27 [facility] ([place]) Comment on above: Performed By: #### A JORGE, CMP, ADIFF, TROPHS, CBC, GFR, MDW, MG ####[address] [place], [place] [address] Calcium [Mass/Vol] 8.9 mg/dL Normal 8.4-10.2 [facility] ([place]) Comment on above: Performed By: #### A JORGE, CMP, ADIFF, TROPHS, CBC, GFR, MDW, MG ####[address] [place], [place] [address] Chloride [Moles/Vol] 104 mmol/L Normal 98-107 [facility] ([place] Comment on above: Performed By: #### A JORGE, CMP, ADIFF, TROPHS, CBC, GFR, MDW, MG ####[address] [place], [place] [address] CO2 [Moles/Vol] 22 mmol/L Low 23-31 [facility] ([place] Comment on above: Performed By: #### A JORGE, CMP, ADIFF, TROPHS, CBC, GFR, MDW, MG ####[address] [place], [place] [address] Creatinine [Mass/Vol] 1.48 mg/dL High 0.70-1.30 [facility] ([place] Comment on above: Performed By: #### A JORGE, CMP, ADIFF, TROPHS, CBC, GFR, MDW, MG ####[address] [place], [place] [address] Electrolyte Balance 12.0 mEq/L Normal 4.0-15.0 [facility] ([place]) Comment on above: Performed By: #### A JORGE, CMP, ADIFF, TROPHS, CBC, GFR, MDW, MG ####[address] [place], [place] [address] Globulin 4.3 G/dL Normal [facility] ([place] Comment on above: Performed By: #### A JORGE, CMP, ADIFF, TROPHS, CBC, GFR, MDW, MG ####[address] [place], [place] [address] Glucose [Mass/Vol] 151 mg/dL High 80-115 [facility] ([place] Comment on above: Performed By: #### A JORGE, CMP, ADIFF, TROPHS, CBC, GFR, MDW, MG ####[address] [place], [place] [address] Potassium [Moles/Vol] 4.0 mmol/L Normal 3.5-5.1 [facility] ([place] Comment on above: Performed By: #### A JORGE, CMP, ADIFF, TROPHS, CBC, GFR, MDW, MG ####[address] [place], [place] [address] Sodium [Moles/Vol] 138 mmol/L Normal 136-145 [facility] ([place] Comment on above: Performed By: #### A JORGE, CMP, ADIFF, TROPHS, CBC, GFR, MDW, MG ####[address] [place], [place] [address] Total Protein 7.7 G/dL Normal 6.4-8.2 [facility] ([place] Comment on above: Performed By: #### A JORGE, CMP, ADIFF, TROPHS, CBC, GFR, MDW, MG ####[address] [place], [place] [address] Urea nitrogen [Mass/Vol] 30 mg/dL High 7-18 [facility] ([place] Comment on above: Performed By: #### A JORGE, CMP, ADIFF, TROPHS, CBC, GFR, MDW, MG ####[address] [place], [place] [address] LABORATORYOrdered By: Ronald العراقي on 10-01-2023 Appearance (U) Clear (10/01/23 10:03 PM) Normal Clear AO Auto Urine SS Bilirubin Ql (U) Negative (10/01/23 10:03 PM) Normal Negative AO Auto Urine SS Color (U) Yellow (10/01/23 10:03 PM) Normal AO Auto Urine SS Glucose Test strip (U) [Mass/Vol] 500 mg/dL Invalid Interpretation Code Negative AO Auto Urine SS Hemoglobin Auto test strip (U) [Mass/Vol] Negative (10/01/23 10:03 PM) Normal Negative AO Auto Urine SS Ketones Ql (U) Negative Normal Negative AO Auto Urine SS UA Leuk Est Negative (10/01/23 10:03 PM) Normal Negative AO Auto Urine SS UA Nitrite Negative (10/01/23 10:03 PM) Normal Negative AO Auto Urine SS UA pH 5.5 (10/01/23 10:03 PM) Normal 5.0 - 8.0 AO Auto Urine SS UA Protein Negative Normal Negative AO Auto Urine SS UA Spec Grav 1.020 (10/01/23 10:03 PM) Normal 1.015-1.02 5 AO Auto Urine SS UA Specimen Type Void (10/01/23 10:03 PM) Normal AO Auto Urine SS UA Urobilinogen 0.2 E.U./dL Normal 0.2-1.0 AO Auto Urine SS LABORATORYOrdered By: SYSTEM SYSTEM on 10-01-2023 Troponin I.cardiac DL <= 0.01 ng/mL [Mass/Vol] 9 ng/L Normal 0 - 76 ng/L AO ADM SS Comment on above: Interpretive Data: H igh Sensitive Troponin I Reference Ranges: Female: 0-51 ng/L Male: 0-76 ng/L Testing performed on [employer] using a homogeneous sandwich chemiluminescent immunoassay based on [employer] technology. Albumin BCP dye [Mass/Vol] 3.4 G/dL Normal 3.4 - 4.8 G/dL AO ADM SS Albumin/Globulin [Mass ratio] 0.8 {ratio} Low 1.1 - 2.5 ratio AO ADM SS ALP [Catalytic activity/Vol] 97 U/L Normal 40 - 135 U/L AO ADM SS ALT With P-5'-P [Catalytic activity/Vol] 24 U/L Normal 16 - 63 U/L AO ADM SS AST With P-5'-P [Catalytic activity/Vol] 19 U/L Normal 10 - 40 U/L AO ADM SS Basophil, Absolute 0.1 103/mcL Normal 0.0 - 0.2 10^3/mcL AO Workflow SS Basophils/100 WBC (Bld) 1.4 % Normal 0.0 - 2.5 % AO Workflow SS Bilirubin [Mass/Vol] 0.5 mg/dL Normal 0.2 - 1 .0 mg/dL AO ADM SS Comment on above: Interpretive Data: U se of this assay is not recommended for patients undergoing treatment with eltrombopag due to the potential for falsely elevated results. Calcium [Mass/Vol] 8.9 mg/dL Normal 8.4 - 10. 2 mg/dL AO ADM SS Chloride [Moles/Vol] 104 mmol/L Normal 98 - 10 7 mmol/L AO ADM SS CO2 [Moles/Vol] 22 mmol/L Low 23 - 31 mmol/L AO ADM SS Creatinine [Mass/Vol] 1.48 mg/dL High 0.70 - 1.30 mg/dL AO ADM SS Electrolyte Balance 12.0 mEq/L Normal 4.0 - 15 .0 mEq/L AO ADM SS Eosinophil, Absolute 0.4 103/mcL Normal 0.0 - 0 .4 10^3/mcL AO Workflow SS Eosinophils/100 WBC (Bld) 3.7 % Normal 0.0 - 7.0 % AO Workflow SS Erythrocyte distribution width (RBC) [Ratio] 18.8 % High 11.5 - 14.5 % AO Workflow SS GFR/1.73 sq M.predicted among blacks MDRD (S/P/Bld) [Vol rate/Area] 59 ml/min/1.73sqm Invalid Interpretation Code AO Chemistry S Comment on above: Interpretive Data: GFR Population mean for , Non- Americans Ages 20-29 = 116 mL/min/1.73 sq.m. Ages 30-39 = 107 mL/min/1.73 sq.m. Ages 40-49 = 99 mL/min/1.73 sq.m. Ages 50-59 = 93 mL/min/1.73 sq.m. Ages 60-69 = 85 mL/min/1.73 sq.m. Ages 70+ = 75 mL/min/1.73 sq.m. Chronic Kidney Disease: Less than 60 mL/min/1.73 square meters End Stage Renal Disease: Less than 15 mL/min/1.73 square meters GFR/1.73 sq M.predicted among non-blacks MDRD (S/P/Bld) [Vol rate/Area] 48 ml/min/1.73sqm Invalid Interpretation Code AO Chemistry S Comment on above: Interpretive Data: GFR Population mean for , Non- Americans Ages 20-29 = 116 mL/min/1.73 sq.m. Ages 30-39 = 107 mL/min/1.73 sq.m. Ages 40-49 = 99 mL/min/1.73 sq.m. Ages 50-59 = 93 mL/min/1.73 sq.m. Ages 60-69 = 85 mL/min/1.73 sq.m. Ages 70+ = 75 mL/min/1.73 sq.m. Chronic Kidney Disease: Less than 60 mL/min/1.73 square meters End Stage Renal Disease: Less than 15 mL/min/1.73 square meters Globulin 4.3 G/dL Invalid Interpretation Code AO ADM SS Glucose [Mass/Vol] 151 mg/dL High 80 - 115 mg/dL AO ADM SS Hematocrit (Bld) [Volume fraction] 33.8 % Low 42.0 - 52.0 % AO Workflow SS Hemoglobin (Bld) [Mass/Vol] 11.0 G/dL Low 14.0 - 18.0 G/dL AO Workflow SS Lymphocyte, Absolute 2.5 103/mcL Normal 0.8 - 3 .9 10^3/mcL AO Workflow SS Lymphocytes/100 WBC (Bld) 23.6 % Normal 10.0 - 50.0 % AO Workflow SS Magnesium [Mass/Vol] 1.8 mg/dL Normal 1.8 - 2 .4 mg/dL AO ADM SS MCH (RBC) [Entitic mass] 24.3 pg Low 27.0 - 31.2 pg AO Workflow SS MCHC 32.5 G/dL Normal 31.8 - 35.4 G/dL AO Workflow SS MCV (RBC) [Entitic vol] 74.7 fL Low 80.0 - 94.0 fL AO Workflow SS Monocyte distribution width Auto (Bld) [Entitic vol] 18.06 1 Normal 0.00 - 20.00 AO Workflow SS Comment on above: Result Comment: For ED adult patients suspected of sepsis, MDW<=20.0 does not rule out sepsis or risk of sepsis Monocyte, Absolute 1.0 103/mcL Normal 0.2 - 1.0 10^3/mcL AO Workflow SS Monocytes/100 WBC (Bld) 9.7 % Normal 1.7 - 13.0 % AO Workflow SS Neutrophil, Absolute 6.5 103/mcL High 2.9 - 6 .2 10^3/mcL AO Workflow SS Neutrophils/100 WBC (Bld) 61.6 % Normal 37.0 - 80.0 % AO Workflow SS Platelet mean volume (Bld) [Entitic vol] 7.7 fL Normal 7.4 - 10.4 fL AO Workflow SS Platelets (Bld) [#/Vol] 250 103/mcL Normal 130 - 400 10^3/mcL AO Workflow SS Potassium [Moles/Vol] 4.0 mmol/L Normal 3.5 - 5.1 mmol/L AO ADM SS Protein [Mass/Vol] 7.7 G/dL Normal 6.4 - 8.2 G/dL AO ADM SS RBC (Bld) [#/Vol] 4.52 106/mcL Normal 4.04 - 6.13 10^6/mcL AO Workflow SS Sodium [Moles/Vol] 138 mmol/L Normal 136 - 145 mmol/L AO ADM SS Troponin I.cardiac DL <= 0.01 ng/mL [Mass/Vol] 10 ng/L Normal 0 - 76 ng/L AO ADM SS Comment on above: Interpretive Data: H igh Sensitive Troponin I Reference Ranges: Female: 0-51 ng/L Male: 0-76 ng/L Testing performed on [employer] using a homogeneous sandwich chemiluminescent immunoassay based on [employer] technology. Urea nitrogen [Mass/Vol] 30 mg/dL High 7 - 18 mg/dL AO ADM SS Urea nitrogen/Creatinine [Mass ratio] 20 ratio Normal 7 - 27 ratio AO ADM SS WBC (Bld) [#/Vol] 10.6 103/mcL Normal 4.6 - 10.8 10^3/mcL AO Workflow SS MGon 10-01-2023 Magnesium [Mass/Vol] 1.8 mg/dL Normal 1.8-2.4 [facility] ([place]) Comment on above: Performed By: #### A JORGE, CMP, ADIFF, TROPHS, CBC, GFR, MDW, MG ####[address] [place], [place] [address] TROPHSon 10-01-2023 High Sensitivity Troponin I 9 ng/L Normal 0-76 [facility] ([place] Comment on above: Result Comment: High Sensitive Troponin I Reference Ranges: Female: 0-51 ng/L Male: 0-76 ng/L Testing performed on [employer] using a homogeneous sandwich chemiluminescent immunoassay based on [employer] technology. Performed By: #### T SAY #### [address] [place], [place] [address] High Sensitivity Troponin I 10 ng/L Normal 0-76 [facility] ([place] Comment on above: Result Comment: High Sensitive Troponin I Reference Ranges: Female: 0-51 ng/L Male: 0-76 ng/L Testing performed on [employer] using a homogeneous sandwich chemiluminescent immunoassay based on [employer] technology. Performed By: #### A JORGE, CMP, ADIFF, TROPHS, CBC, GFR, MDW, MG ####[address] [place], [place] [address] UAon 10-01-2023 Color (U) Yellow Normal [facility] ([place] Comment on above: Performed By: #### U A ####[address] [place], [place] [address] Glucose (U) [Mass/Vol] 500 mg/dL Abnormal Negative [facility] ([place]) Comment on above: Performed By: #### U A ####[address] [place], [place] [address] Ketones Ql (U) Negative Normal Negative [facility] ([place] Comment on above: Performed By: #### U A ####[address] [place], [place] [address] UA Appear Clear Normal Clear [facility] ([place] Comment on above: Performed By: #### U A ####[address] [place], [place] [address] UA Blood Negative Normal Negative [facility] ([place] Comment on above: Performed By: #### U A ####[address] [place] [address] UA Leuk Est Negative Normal Negative [facility] ([place] Comment on above: Performed By: #### U A ####[address] [place] [address] UA Nitrite Negative Normal Negative [facility] ([place] Comment on above: Performed By: #### U A ####[address] [place] [address] UA pH 5.5 Normal 5.0 - 8.0 [facility] ([place] Comment on above: Performed By: #### U A ####[address] [place] [address] UA Protein Negative Normal Negative [facility] ([place] Comment on above: Performed By: #### U A ####[address] [place] [address] UA Spec Grav 1.020 Normal 1.015-1.02 5 [facility] ([place] Comment on above: Performed By: #### U A ####[address] [place] [address] UA Specimen Type Void Normal [facility] ([place] Comment on above: Performed By: #### U A ####[address] [place], [place] [address] UA Urobilinogen 0.2 E.U./dL Normal 0.2-1.0 [facility] ([place] Comment on above: Performed By: #### U A ####[address] [place] [address] Urobilinogen (U) [Mass/Vol] Negative Normal Negative [facility] ([place] Comment on above: Performed By: #### U A ####[address] [place], [place] [address] XR CHEST 1 VIEWon 10-01-2023 XR CHEST 1 VIEW ORIGINAL EXAMINATION: ONE XRAY VIEW OF THE CHEST10/01/2023 8:53 pm CHEST ONE VIEW AP/PA EXAM DESCRIPTION: COMPARISON: None available HISTORY: ORDERING SYSTEM PROVIDED HISTORY: Reason for Exam: Weakness. Hx of Afib. Patient is wearing a Holter monitor. weakness FINDINGS: Single AP radiograph of the chest was obtained. Interstitial opacities left lower lobe. The remaining lungs are clear without evidence of focal consolidation, mass, pleural effusion, or pneumothorax. The cardiomediastinal silhouette is unremarkable. The bones and soft tissues are unremarkable. IMPRESSION: Left lower lobe atelectasis versus infiltrate. Interpreted by: Eduin Payne MD Preliminary Report By: Eduin Payne MD Electronically signed By Eduin Payne MD Dictated Date: 10/01/2023 9:13:27 PM Prelim Date: 10/01/2023 9:13:56 PM Sign Date: 10/01/2023 9:13:56 PM Ordering Provider: TITA Echevarria [facility] ([place] Bilirubin, Directon 09-26-19 24 Bilirubin.direct [Mass/Vol] 0.12 mg/dL Normal 0.00-0.30 [facility] Comment on above: Order Comment: Y Performed By: #### L 506.0250, L3300.8000, L500.4100, L501.4700, L503.0105, L3130.0010 ####[facility] [address] [place], [address] CBC W/Diff, Automatedon 08-31 Absolute Lymph 1.81 X10 3/uL Normal 0.83-4.51 [facility] Comment on above: Performed By: #### L 100.0100, L500.4050, L501.5200, L501.9520, L506.0400 ####[facility] [address] [place], [address] Absolute Neut 5.8 X10 3/uL Normal 2.0-7.7 [facility] Comment on above: Performed By: #### L 100.0100, L500.4050, L501.5200, L501.9520, L506.0400 ####[facility] [address] [place], [address] Basophils/100 WBC (Bld) 0.6 % Normal 0-1 [facility] Comment on above: Performed By: #### L 100.0100, L500.4050, L501.5200, L501.9520, L506.0400 ####[facility] [address] [place], [address] Eosinophils/100 WBC (Bld) 3.1 % Normal 0-5 [facility] Comment on above: Performed By: #### L 100.0100, L500.4050, L501.5200, L501.9520, L506.0400 ####[facility] [address] [place], [address] Erythrocyte distribution width (RBC) [Ratio] 17.8 % High 11.6-14.6 [facility] Comment on above: Performed By: #### L 100.0100, L500.4050, L501.5200, L501.9520, L506.0400 ####[facility] [address] [place], [address] Hematocrit (Bld) [Volume fraction] 35.7 % Low 40-54 [facility] Comment on above: Performed By: #### L 100.0100, L500.4050, L501.5200, L501.9520, L506.0400 ####[facility] [address] [place], [address] Hemoglobin (Bld) [Mass/Vol] 10.9 g/dL Low 13.0-16.5 [facility] Comment on above: Performed By: #### L 100.0100, L500.4050, L501.5200, L501.9520, L506.0400 ####[facility] [address] [place], [address] IG% 0.300 Normal 0.0-0.9 [facility] Comment on above: Result Comment: IG% - Immature Granulocytes (promyelocytes, myelocytes andmetamyelocytes) > 1% indicates that a LEFT SHIFT is Present. Performed By: #### L 100.0100, L500.4050, L501.5200, L501.9520, L506.0400 ####[facility] [address] [place], [address] Lymphocytes/100 WBC (Bld) 20.9 % Normal 19-41 [facility] Comment on above: Performed By: #### L 100.0100, L500.4050, L501.5200, L501.9520, L506.0400 ####[facility] [address] [place], [address] MCH (RBC) [Entitic mass] 23.3 pg Low 27.0-32.0 [facility] Comment on above: Performed By: #### L 100.0100, L500.4050, L501.5200, L501.9520, L506.0400 ####[facility] [address] [place], [address] MCHC (RBC) [Mass/Vol] 30.5 g/dL Low 32-36 [facility] Comment on above: Performed By: #### L 100.0100, L500.4050, L501.5200, L501.9520, L506.0400 ####[facility] [address] [place], [address] MCV (RBC) [Entitic vol] 76.4 fL Low 80-94 [facility] Comment on above: Performed By: #### L 100.0100, L500.4050, L501.5200, L501.9520, L506.0400 ####[facility] [address] [place], [address] Monocytes/100 WBC (Bld) 8.0 % Normal 0-10 [facility] Comment on above: Performed By: #### L 100.0100, L500.4050, L501.5200, L501.9520, L506.0400 ####[facility] [address] [place], [address] Neutrophils/100 WBC (Bld) 67.1 % Normal 47-70 [facility] Comment on above: Performed By: #### L 100.0100, L500.4050, L501.5200, L501.9520, L506.0400 ####[facility] [address] [place], [address] Nucleated RBC (Bld) [#/Vol] 0 10*3/uL Normal 0-5 [facility] Comment on above: Performed By: #### L 100.0100, L500.4050, L501.5200, L501.9520, L506.0400 ####[facility] [address] [place], [address] Platelet mean volume (Bld) [Entitic vol] 10.1 fL Normal 6.2-12.0 [facility] Comment on above: Performed By: #### L 100.0100, L500.4050, L501.5200, L501.9520, L506.0400 ####[facility] [address] [place], [address] Platelets (Bld) [#/Vol] 252 10*3/uL Normal 150-450 [facility] Comment on above: Performed By: #### L 100.0100, L500.4050, L501.5200, L501.9520, L506.0400 ####[facility] [address] [place], [address] RBC (Bld) [#/Vol] 4.67 10*6/uL Normal 4.6-6.2 [facility] Comment on above: Performed By: #### L 100.0100, L500.4050, L501.5200, L501.9520, L506.0400 ####[facility] [address] [place], [address] RDW SD 48.3 fl High 35.1-43.9 [facility] Comment on above: Performed By: #### L 100.0100, L500.4050, L501.5200, L501.9520, L506.0400 ####[facility] [address] [place], [address] WBC (Bld) [#/Vol] 8.6 10*3/uL Normal 4.4-11.0 [facility] Comment on above: Performed By: #### L 100.0100, L500.4050, L501.5200, L501.9520, L506.0400 ####[facility] [address] [place], [address] Comprehensive Metabolic Prof [facility] 09-26-2023 Albumin [Mass/Vol] 3.4 g/dL Normal 3.2-5.0 [facility] Comment on above: Order Comment: DR RONALD WRAY GETS TSH LIVER AND T4F Performed By: #### L 100.0100, L500.4050, L501.5200, L501.9520, L506.0400 ####[facility] [address] [place], [address] Albumin/Globulin [Mass ratio] 0.7 {ratio} Low 0.9-2.4 [facility] Comment on above: Order Comment: DR RONALD WRAY GETS TSH LIVER AND T4F Performed By: #### L 100.0100, L500.4050, L501.5200, L501.9520, L506.0400 ####[facility] [address] [place], [address] ALK P 98 U/L Normal 45-117 [facility] Comment on above: Order Comment: DR RONALD WRAY GETS TSH LIVER AND T4F Performed By: #### L 100.0100, L500.4050, L501.5200, L501.9520, L506.0400 ####[facility] [address] [place], [address] ALT [Catalytic activity/Vol] 18 U/L Normal 16-61 [facility] Comment on above: Order Comment: DR RONALD WRAY GETS TSH LIVER AND T4F Performed By: #### L 100.0100, L500.4050, L501.5200, L501.9520, L506.0400 ####[facility] [address] [place], [address] AST [Catalytic activity/Vol] 18 U/L Normal 15-37 [facility] Comment on above: Order Comment: DR RONALD WRAY GETS TSH LIVER AND T4F Performed By: #### L 100.0100, L500.4050, L501.5200, L501.9520, L506.0400 ####[facility] [address] [place], [address] Bilirubin [Mass/Vol] 0.40 mg/dL Normal 0.20-1.00 [facility] Comment on above: Order Comment: DR RONALD WRAY GETS TSH LIVER AND T4F Result Comment: For patients on eltrombopag therapy, use of [employer] [place] TBIL is not recommended. Performed By: #### L 100.0100, L500.4050, L501.5200, L501.9520, L506.0400 ####[facility] [address] [place], [address] BUN/CRE 25.5 RATIO High 10-20 [facility] Comment on above: Order Comment: DR RONALD WRAY GETS TSH LIVER AND T4F Performed By: #### L 100.0100, L500.4050, L501.5200, L501.9520, L506.0400 ####[facility] [address] [place], [address] CA,Total 8.8 mg/dL Normal 8.5-10.1 [facility] Comment on above: Order Comment: DR RONALD WRAY GETS TSH LIVER AND T4F Performed By: #### L 100.0100, L500.4050, L501.5200, L501.9520, L506.0400 ####[facility] [address] [place], [address] Chloride [Moles/Vol] 105 mmol/L Normal 98-107 [facility] Comment on above: Order Comment: DR RONALD WRAY GETS TSH LIVER AND T4F Performed By: #### L 100.0100, L500.4050, L501.5200, L501.9520, L506.0400 ####[facility] [address] [place], [address] CO2 [Moles/Vol] 18.0 mmol/L Low 21.0-32.0 [facility] Comment on above: Order Comment: DR RONALD WRAY GETS TSH LIVER AND T4F Performed By: #### L 100.0100, L500.4050, L501.5200, L501.9520, L506.0400 ####[facility] [address] [place], [address] Creatinine [Mass/Vol] 1.37 mg/dL High 0.70-1.30 [facility] Comment on above: Order Comment: DR RONALD WRAY GETS TSH LIVER AND T4F Result Comment: The validity of the calculated GFR GFRAA in patients over70 years has not been determined. Clinical correlation isessential. Performed By: #### L 100.0100, L500.4050, L501.5200, L501.9520, L506.0400 ####[facility] [address] [place], [address] EST GFR - AA 68 mL/min Normal >60 [facility] Comment on above: Order Comment: DR RONALD WRAY GETS TSH LIVER AND T4F Result Comment: Afri can Gu[place]ian GFR Calc Performed By: #### L 100.0100, L500.4050, L501.5200, L501.9520, L506.0400 ####[facility] [address] [place], [address] GAP 12 Normal 5-15 [facility] Comment on above: Order Comment: DR RONALD WRAY GETS TSH LIVER AND T4F Performed By: #### L 100.0100, L500.4050, L501.5200, L501.9520, L506.0400 ####[facility] [address] [place], [address] GFR/1.73 sq M.predicted among non-blacks MDRD (S/P/Bld) [Vol rate/Area] 56 mL/min/{1.73_m2} Low >60 [facility] Comment on above: Order Comment: DR RONALD WRAY GETS TSH LIVER AND T4F Result Comment: Non- GFR Calc Performed By: #### L 100.0100, L500.4050, L501.5200, L501.9520, L506.0400 ####[facility] [address] [place], [address] Globulin (S) [Mass/Vol] 4.9 g/dL High 2.2-4.2 [facility] Comment on above: Order Comment: DR RONALD WRAY GETS TSH LIVER AND T4F Performed By: #### L 100.0100, L500.4050, L501.5200, L501.9520, L506.0400 ####[facility] [address] [place], [address] Glucose [Mass/Vol] 260 mg/dL High 74-106 [facility] Comment on above: Order Comment: DR RONALD WRAY GETS TSH LIVER AND T4F Result Comment: Gluc ose result greater than or equal to 200 mg/dLsuggests DIABETES MELLITUS per A.D.A. criteria. Performed By: #### L 100.0100, L500.4050, L501.5200, L501.9520, L506.0400 ####[facility] [address] [place], [address] Potassium [Moles/Vol] 4.2 mmol/L Normal 3.5-5.1 [facility] Comment on above: Order Comment: DR RONALD WRAY GETS TSH LIVER AND T4F Performed By: #### L 100.0100, L500.4050, L501.5200, L501.9520, L506.0400 ####[facility] [address] [place], [address] Sodium [Moles/Vol] 135 mmol/L Low 136-145 [facility] Comment on above: Order Comment: DR RONALD WRAY GETS TSH LIVER AND T4F Performed By: #### L 100.0100, L500.4050, L501.5200, L501.9520, L506.0400 ####[facility] [address] [place], [address] T PROT 8.3 g/dL High 6.4-8.2 [facility] Comment on above: Order Comment: DR RONALD WRAY GETS TSH LIVER AND T4F Performed By: #### L 100.0100, L500.4050, L501.5200, L501.9520, L506.0400 ####[facility] [address] [place], [address] Urea nitrogen [Mass/Vol] 35 mg/dL High 7-18 [facility] Comment on above: Order Comment: DR RONALD WRAY GETS TSH LIVER AND T4F Performed By: #### L 100.0100, L500.4050, L501.5200, L501.9520, L506.0400 ####[facility] [address] [place], [address] Folates, (Folic Acid)on 08-31 FOLATES 4.90 ng/mL Normal 3.1-55.4 [facility] Comment on above: Order Comment: Y Result Comment: Slig ht Hemolysis, Result may be falsely increased. Performed By: #### L 506.0250, L3300.8000, L500.4100, L501.4700, L503.0105, L3130.0010 ####[facility] [address] [place], [address] Lipid Profileon 09-26-2023 Cholesterol [Mass/Vol] 156 mg/dL Normal 200 [facility] Comment on above: Order Comment: Y Result Comment: <200 mg/dL Desirable 200-240 mg/dL Borderline >240 mg/dL High Risk Performed By: #### L 506.0250, L3300.8000, L500.4100, L501.4700, L503.0105, L3130.0010 ####[facility] [address] [place], [address] Cholesterol in HDL [Mass/Vol] 31 mg/dL Low [facility] Comment on above: Order Comment: Y Result Comment: The drugs N-Acetylcysteine and Metamizole may falselydepress this assay. Reference Range HDL <40 mg/dL Low HDL Cholesterol HDL >or= 60 mg/dL High HDL Cholesterol Performed By: #### L 506.0250, L3300.8000, L500.4100, L501.4700, L503.0105, L3130.0010 ####[facility] [address] [place], [address] LDL TNP Normal 0-130 [facility] Comment on above: Order Comment: Y Performed By: #### L 506.0250, L3300.8000, L500.4100, L501.4700, L503.0105, L3130.0010 ####[facility] [address] [place], [address] Triglyceride [Mass/Vol] 418 mg/dL High [facility] Comment on above: Order Comment: Y Result Comment: The drugs N-Acetylcysteine and Metamizole may falselydepress this assay.TRIGLYCERIDE IS GREATER THAN 400 mg/dL.LDL RESULT IS INVALID AND WILL NOT BE REPORTED.Serum Triglycerides Reference Interval Normal <150 mg/dL Borderline high 150 - 199 mg/dL High 200 - 499 mg/dL Very High > or = 500 mg/dL Performed By: #### L 506.0250, L3300.8000, L500.4100, L501.4700, L503.0105, L3130.0010 ####[facility] [address] [place], [address] VLDL TNP Normal 5-40 [facility] Comment on above: Order Comment: Y Performed By: #### L 506.0250, L3300.8000, L500.4100, L501.4700, L503.0105, L3130.0010 ####[facility] [address] [place], [address] Magnesiumon 09-26-2023 Magnesium [Mass/Vol] 2.1 mg/dL Normal 1.6-2.6 [facility] Comment on above: Order Comment: DR RONALD WRAY GETS TSH LIVER AND T4F Performed By: #### L 100.0100, L500.4050, L501.5200, L501.9520, L506.0400 ####[facility] [address] [place], [address] T4 Free Directon 09-26-2023 T4 FREE DIRECT 1.22 ng/dL Normal 0.76-1.46 [facility] Comment on above: Order Comment: DR RONALD WRAY GETS TSH LIVER AND T4F Performed By: #### L 100.0100, L500.4050, L501.5200, L501.9520, L506.0400 ####[facility] [address] [place], [address] Thyroid Stim Hormone (TSH)on 09-26-2023 TSH 1.67 uIU/mL Normal 0.358-3.74 [facility] Comment on above: Order Comment: DR RONALD REAVES TSH LIVER AND T4F Performed By: #### L 100.0100, L500.4050, L501.5200, L501.9520, L506.0400 ####[facility] [address] [place], [address] Vitamin B12on 09-26-2023 Cobalamin (Vitamin B12) [Mass/Vol] 331 pg/mL Normal 211-911 [facility] Comment on above: Performed By: #### L 506.0250, L3300.8000, L500.4100, L501.4700, L503.0105, L3130.0010 ####[facility] [address] [place], [address] Pulmonary Visit Reporton Pulmonary Visit Report Normal [facility] L/S Spine Min 4 Viewson 08-31 L/S Spine Min 4 Views Normal [facility] Thoracic Spine 3 Viewson Thoracic Spine 3 Views Normal [facility] Absolute lymphocyte countOrd ered By: Fany Diaz on 08-05-2023 Lymphocytes Auto (Unsp spec) [#/Vol] 2.02 10*3/uL 0.83-4.51 [facility] Automated lymphocyte count a s percentage of total leukocytesOrdered By: Fany Diaz on 08-05-2023 Lymphocytes/100 WBC Auto (Unsp spec) 22.3 % 19-41 [facility] Basophil percentageOrdered B y: Fany Diaz on 08-05-2023 Basophil percentage 3.9 mg/dL 2.5-4.9 [facility] Basophils/100 WBC (Bld) 0.9 % 0-1 [facility] Chloride [Moles/Vol] 108 mmol/L 98-107 [facility] Eosinophils/100 WBC (Bld) 3.2 % 0-5 [facility] Glucose [Mass/Vol] 158 mg/dL 74-106 [facility] Comment on above: Fasting Glucose resu lt greater than or equal to 126 mg/dL suggests DIABETES MELLITUS per A.D.A. criteria. Hemoglobin (Bld) [Mass/Vol] 11.6 g/dL 13.0-16.5 [facility] Monocytes/100 WBC (Bld) 9.6 % 0-10 [facility] Neutrophils (Bld) [#/Vol] 5.8 10*3/uL 2.0-7.7 [facility] Neutrophils/100 WBC (Bld) 63.6 % 47-70 [facility] Potassium [Moles/Vol] 4.1 mmol/L 3.5-5.1 [facility] Sodium [Moles/Vol] 136 mmol/L 136-145 [facility] WBC (Bld) [#/Vol] 9.1 10*3/uL 4.4-11.0 [facility] Determination of erythrocyte mean corpuscular volume (MCV)Ordered By: Fany Diaz on 08-05-2023 MCV (RBC) [Entitic vol] 77.0 fL 80-94 [facility] Erythrocyte distribution wid th ratioOrdered By: Fany Diaz on 08-05-2023 Erythrocyte distribution width (RBC) [Ratio] 18.6 % 11.6-14.6 [facility] Erythrocyte distribution wid th standard deviationOrdered By: Fany Diaz on 08-05-2023 Erythrocyte distribution width (RBC) [Entitic vol] 51.4 fL 35.1-43.9 [facility] Hematocrit Auto (Bld) [Volum e fraction]Ordered By: Fany Diaz on 08-05-2023 Hematocrit (Bld) [Volume fraction] 38.1 % 40-54 [facility] Immature granulocytes/100 WB C Auto (Bld)Ordered By: Fany Diaz on 08-05-2023 Immature granulocytes/100 WBC (Bld) 0.400 % 0.0-0.9 [facility] Comment on above: IG% - Immature Granu locytes (promyelocytes, myelocytes and metamyelocytes) > 1% indicates that a LEFT SHIFT is Present. Iron measurement (mass/mass) Ordered By: Fany Diaz on 08-05-2023 Iron (Unsp spec) [Mass/Mass] 42 ug/dL 65-175 [facility] Laboratory - Chemistry and C hemistry - challengeOrdered By: Fany Diaz on 08-05-2023 CO2 [Moles/Vol] 20.0 mmol/L 21.0-32.0 [facility] Ferritin [Mass/Vol] 20 ng/mL 26-388 [facility] Urea nitrogen/Creatinine [Mass ratio] 25.5 mg/mg 10-20 [facility] Laboratory - Hematology and Cell countsOrdered By: Fany Diaz on 08-05-2023 MCH (RBC) [Entitic mass] 23.4 pg 27.0-32.0 [facility] MCHC (RBC) [Mass/Vol] 30.4 g/dL 32-36 [facility] Nucleated RBC/100 WBC (Bld) [Ratio] 0 % 0-5 [facility] Platelet mean volume (Bld) [Entitic vol] 9.8 fL 6.2-12.0 [facility] Platelets (Bld) [#/Vol] 277 10*3/uL 150-450 [facility] No Panel InformationOrdered By: Fany Diaz on 08-05-2023 Estimated GFR (MDRD) Amer 88 mL/min >60 [facility] Comment on above: GFR Calc Estimated GFR (MDRD) Non-Af Amer 73 mL/min >60 [facility] Comment on above: Non- GFR Calc Parathyroid Hormone (Intact) 71.4 pg/mL 18.4-80.1 [facility] Total Iron Binding Capacity 383 ug/dL 250-450 [facility] RBC Auto (Bld) [#/Vol]Ordere d By: Fany Diaz on 08-05-2023 RBC (Bld) [#/Vol] 4.95 10*6/uL 4.6-6.2 [facility] Serum or plasma calcium grazyna urement (mass/volume)Ordered By: Fany Diaz on 08-05-2023 Calcium [Mass/Vol] 9.3 mg/dL 8.5-10.1 [facility] Serum or plasma creatinine m easurement (mass/volume)Ordered By: Fany Diaz on 08-05-2023 Creatinine [Mass/Vol] 1.10 mg/dL 0.70-1.30 [facility] Comment on above: The validity of the calculated GFR & GFRAA in patients over 70 years has not been determined. Clinical correlation is essential. Serum or plasma iron saturat ion measurement (mass fraction)Ordered By: Fany Diaz on 08-05-2023 Iron saturation [Mass fraction] 11.0 % 15.0-55.0 [facility] Serum or plasma urea nitroge n measurement (mass/volume)Ordered By: Fany Diaz on 08-05-2023 Urea nitrogen [Mass/Vol] 28 mg/dL 7-18 [facility] Serum or plasma uric acid me asurement (mass/volume)Ordered By: [facility] on 08-05-2023 Urate [Mass/Vol] 7.3 mg/dL 3.5-7.2 [facility] Comment on above: The drugs N-Acetylcy steine and Metamizole may falsely depress this assay. Thin prep Papanicolaou smear with manual screeningOrdered By: Fany Diaz on 08-05-2023 Protein (U) [Mass/Vol] 25.0 mg/dL 0.0-11.8 [facility] Thin prep Papanicolaou smear with manual screening 3.3 g/dL 3.2-5.0 [facility] Urine creatinine measurement (mass/volume)Ordered By: Fany Diaz on 08-05-2023 Creatinine (U) [Mass/Vol] 67.40 mg/dL NO RANGE EST. [facility] Urine protein/creatinine mas s ratioOrdered By: Fany Diaz on 08-05-2023 Protein/Creatinine (U) [Mass ratio] 371 mg/g CRE 0-200 [facility] Basophil percentageOrdered B y: Francois Valiente on 06-06-2023 Creatinine [Mass/Vol] 1.4 mg/dL 0.70-1.30 [facility] Laboratory - Chemistry and C hemistry - challengeOrdered By: Francois Valiente on 06-06-2023 GFR/1.73 sq M.predicted among non-blacks MDRD (S/P/Bld) [Vol rate/Area] 55.0000 mL/min/{1.73_m2} >60 [facility] Laboratory - Hematology and Cell countson 05-20-2023 HbA1c (Bld) [Mass fraction] 7.5 % 4.2-6.3 [facility] Basophil percentageOrdered B y: Oren Sky on 04-25-2023 Bilirubin [Mass/Vol] 0.50 mg/dL 0.20-1.00 [facility] Comment on above: For patients on eltr ombopag therapy, use of Dimension [place] TBIL is not recommended. Chloride [Moles/Vol] 108 mmol/L 98-107 [facility] Glucose [Mass/Vol] 157 mg/dL 74-106 [facility] Comment on above: Fasting Glucose resu lt greater than or equal to 126 mg/dL suggests DIABETES MELLITUS per A.D.A. criteria. Hemoglobin (Bld) [Mass/Vol] 11.5 g/dL 13.0-16.5 [facility] Potassium [Moles/Vol] 3.9 mmol/L 3.5-5.1 [facility] Protein [Mass/Vol] 8.4 g/dL 6.4-8.2 [facility] Sodium [Moles/Vol] 135 mmol/L 136-145 [facility] WBC (Bld) [#/Vol] 10.8 10*3/uL 4.4-11.0 [facility] Determination of erythrocyte mean corpuscular volume (MCV)Ordered By: Oren Sky on 04-25-2023 MCV (RBC) [Entitic vol] 76.0 fL 80-94 [facility] Erythrocyte distribution wid th ratioOrdered By: Oren Sky on 04-25-2023 Erythrocyte distribution width (RBC) [Ratio] 18.6 % 11.6-14.6 [facility] Erythrocyte distribution wid th standard deviationOrdered By: Oren Sky on 04-25-2023 Erythrocyte distribution width (RBC) [Entitic vol] 48.6 fL 35.1-43.9 [facility] Hematocrit Auto (Bld) [Volum e fraction]Ordered By: Oren Sky on 04-25-2023 Hematocrit (Bld) [Volume fraction] 38.0 % 40-54 [facility] Laboratory - Chemistry and C hemistry - challengeOrdered By: Oren Sky on 04-25-2023 Albumin/Globulin [Mass ratio] 0.7 {ratio} 0.9-2.4 [facility] ALP [Catalytic activity/Vol] 102 U/L 45-117 [facility] ALT [Catalytic activity/Vol] 27 U/L 16-61 [facility] CO2 [Moles/Vol] 18.0 mmol/L 21.0-32.0 [facility] Globulin (S) [Mass/Vol] 4.9 g/dL 2.2-4.2 [facility] Natriuretic peptide B (Bld) [Mass/Vol] 13.4 pg/mL 0-100 [facility] Urea nitrogen/Creatinine [Mass ratio] 19.2 mg/mg 10-20 [facility] Laboratory - Hematology and Cell countsOrdered By: Oren Sky on 04-25-2023 MCH (RBC) [Entitic mass] 23.0 pg 27.0-32.0 [facility] MCHC (RBC) [Mass/Vol] 30.3 g/dL 32-36 [facility] Platelets (Bld) [#/Vol] 289 10*3/uL 150-450 [facility] No Panel InformationOrdered By: Oren Sky on 04-25-2023 Estimated GFR (MDRD) Amer 73 mL/min >60 [facility] Comment on above: GFR Calc Estimated GFR (MDRD) Non-Af Amer 60 mL/min >60 [facility] Comment on above: Non- GFR Calc Platelet mean volume Deon-Ec ker (Bld) [Entitic vol]Ordered By: Oren Sky on 04-25-2023 Platelet mean volume (Bld) [Entitic vol] 9.7 fL 6.2-12.0 [facility] RBC Auto (Bld) [#/Vol]Ordere d By: Oren Sky on 04-25-2023 RBC (Bld) [#/Vol] 5.00 10*6/uL 4.6-6.2 [facility] Serum or plasma calcium grazyna urement (mass/volume)Ordered By: Oren Sky on 04-25-2023 Calcium [Mass/Vol] 9.2 mg/dL 8.5-10.1 [facility] Serum or plasma creatinine m easurement (mass/volume)Ordered By: Oren Sky on 04-25-2023 Creatinine [Mass/Vol] 1.30 mg/dL 0.70-1.30 [facility] Comment on above: The validity of the calculated GFR & GFRAA in patients over 70 years has not been determined. Clinical correlation is essential. Serum or plasma thyroid stim ulating hormone (TSH) measurement (units/volume)Ordered By: Oren Sky on 04-25-2023 TSH Qn 1.74 uIU/mL 0.358-3.74 [facility] Serum or plasma urea nitroge n measurement (mass/volume)Ordered By: Oren Sky on 04-25-2023 Urea nitrogen [Mass/Vol] 25 mg/dL 7-18 [facility] Thin prep Papanicolaou smear with manual screeningOrdered By: Oren Sky on 04-25-2023 Thin prep Papanicolaou smear with manual screening 3.5 g/dL 3.2-5.0 [facility] Thin prep Papanicolaou smear with manual screening 17 U/L 15-37 [facility] Thin prep Papanicolaou smear with manual screening 9 5-15 [facility] Laboratory - Chemistry and C hemistry - challengeOrdered By: Coreen Gerardo on 02-26-2023 Free T4 [Mass/Vol] 0.85 ng/dL 0.76-1.46 [facility] No Panel InformationOrdered By: Coreen Gerardo on 02-26-2023 Thyroid Stimulating Hormone (TSH) 8.76 uIU/mL 0.358-3.74 [facility] Basophil percentageOrdered B y: Fany Diaz on 01-15-2023 Basophil percentage 2.8 mg/dL 2.5-4.9 [facility] Chloride [Moles/Vol] 107 mmol/L 98-107 [facility] Glucose [Mass/Vol] 74 mg/dL 74-106 [facility] Potassium [Moles/Vol] 3.2 mmol/L 3.5-5.1 [facility] Sodium [Moles/Vol] 139 mmol/L 136-145 [facility] Laboratory - Chemistry and C hemistry - challengeOrdered By: Fany Diaz on 01-15-2023 CO2 [Moles/Vol] 24.0 mmol/L 21.0-32.0 [facility] Urea nitrogen/Creatinine [Mass ratio] 10.2 mg/mg 10-20 [facility] No Panel InformationOrdered By: Fany Diaz on 01-15-2023 Estimated GFR (MDRD) Amer 74 mL/min >60 [facility] Comment on above: GFR Calc Estimated GFR (MDRD) Non-Af Amer 61 mL/min >60 [facility] Comment on above: Non- GFR Calc Serum or plasma albumin grazyna urement (mass/volume)Ordered By: Fany Diaz on 01-15-2023 Albumin [Mass/Vol] 3.2 g/dL 3.2-5.0 [facility] Serum or plasma calcium grazyna urement (mass/volume)Ordered By: Fany Diaz on 01-15-2023 Calcium [Mass/Vol] 8.7 mg/dL 8.5-10.1 [facility] Serum or plasma creatinine m easurement (mass/volume)Ordered By: Fany Diaz on 01-15-2023 Creatinine [Mass/Vol] 1.28 mg/dL 0.70-1.30 [facility] Comment on above: The validity of the calculated GFR & GFRAA in patients over 70 years has not been determined. Clinical correlation is essential. Serum or plasma urea nitroge n measurement (mass/volume)Ordered By: Fany Diaz on 01-15-2023 Urea nitrogen [Mass/Vol] 13 mg/dL 7-18 [facility] Urine creatinine measurement (mass/volume)Ordered By: Fany Diaz on 01-15-2023 Creatinine (U) [Mass/Vol] 73.90 mg/dL NO RANGE EST. [facility] Urine protein measurement (m ass/volume)Ordered By: Fany Diaz on 01-15-2023 Protein (U) [Mass/Vol] 16.2 mg/dL 0.0-11.8 [facility] Urine protein/creatinine mas s ratioOrdered By: Fany Diaz on 01-15-2023 Protein/Creatinine (U) [Mass ratio] 219 mg/g CRE 0-200 [facility] Absolute lymphocyte countOrd ered By: Fany Diaz on 12-31-2022 Lymphocytes Auto (Unsp spec) [#/Vol] 1.76 10*3/uL 0.83-4.51 [facility] Basophil percentageOrdered B y: Fany Diaz on 12-31-2022 Basophil percentage 3.7 mg/dL 2.5-4.9 [facility] Basophils/100 WBC (Bld) 0.6 % 0-1 [facility] Chloride [Moles/Vol] 107 mmol/L 98-107 [facility] Eosinophils/100 WBC (Bld) 2.3 % 0-5 [facility] Glucose [Mass/Vol] 117 mg/dL 74-106 [facility] Comment on above: Fasting Glucose resu lt from 100 to 125 mg/dL suggests IMPAIRED HOMEOSTASIS per A.D.A. criteria. Neutrophils (Bld) [#/Vol] 7.8 10*3/uL 2.0-7.7 [facility] Neutrophils/100 WBC (Bld) 72.0 % 47-70 [facility] Potassium [Moles/Vol] 3.8 mmol/L 3.5-5.1 [facility] Sodium [Moles/Vol] 138 mmol/L 136-145 [facility] WBC (Bld) [#/Vol] 10.9 10*3/uL 4.4-11.0 [facility] Bilirubin Test strip Ql (U)O rdered By: Fany Diaz on 12-31-2022 Bilirubin Ql (U) Negative Negative [facility] Blood erythrocytes count (nu mber/volume)Ordered By: Fany Diaz on 12-31-2022 RBC (Bld) [#/Vol] 4.20 10*6/uL 4.6-6.2 [facility] Blood hemoglobin measurement (mass/volume)Ordered By: Fany Diaz on 12-31-2022 Hemoglobin (Bld) [Mass/Vol] 10.8 g/dL 13.0-16.5 [facility] Blood lymphocytes/100 leukoc ytesOrdered By: Fany Diaz on 12-31-2022 Lymphocytes/100 WBC (Bld) 16.1 % 19-41 [facility] Blood monocytes/100 leukocyt esOrdered By: Fany Diaz on 12-31-2022 Monocytes/100 WBC (Bld) 8.5 % 0-10 [facility] Blood platelet mean volumeOr dered By: Fany Diaz on 12-31-2022 Platelet mean volume (Bld) [Entitic vol] 10.1 fL 6.2-12.0 [facility] Determination of erythrocyte mean corpuscular volume (MCV)Ordered By: Fany Diaz on 12-31-2022 MCV (RBC) [Entitic vol] 82.4 fL 80-94 [facility] Hematocrit Auto (Bld) [Volum e fraction]Ordered By: Fany Diaz on 12-31-2022 Hematocrit (Bld) [Volume fraction] 34.6 % 40-54 [facility] Iron measurement (mass/mass) Ordered By: [facility] on 12-31-2022 Iron (Unsp spec) [Mass/Mass] 37 ug/dL 65-175 [facility] Ketones Test strip Ql (U)Ord ered By: Fany Diaz on 12-31-2022 Ketones Ql (U) Negative Negative [facility] Laboratory - Chemistry and C hemistry - challengeOrdered By: [facility] on 12-31-2022 Albumin [Mass/Vol] 3.4 g/dL 2.9-4.4 [facility] CO2 [Moles/Vol] 22.0 mmol/L 21.0-32.0 [facility] Urea nitrogen/Creatinine [Mass ratio] 21.4 mg/mg 10-20 [facility] Laboratory - Hematology and Cell countsOrdered By: Fany Diaz on 12-31-2022 Erythrocyte distribution width (RBC) [Entitic vol] 50.4 fL 35.1-43.9 [facility] Erythrocyte distribution width (RBC) [Ratio] 16.8 % 11.6-14.6 [facility] Immature granulocytes/100 WBC (Bld) 0.500 % 0.0-0.9 [facility] Comment on above: IG% - Immature Granu locytes (promyelocytes, myelocytes and metamyelocytes) > 1% indicates that a LEFT SHIFT is Present. MCH (RBC) [Entitic mass] 25.7 pg 27.0-32.0 [facility] Nucleated RBC/100 WBC (Bld) [Ratio] 0 % 0-5 [facility] MCHC Auto (RBC) [Mass/Vol]Or dered By: Fany Diaz on 12-31-2022 MCHC (RBC) [Mass/Vol] 31.2 g/dL 32-36 [facility] Nitrite Test strip Ql (U)Ord ered By: Fany Diaz on 12-31-2022 Nitrite Ql (U) Negative Negative [facility] No Panel InformationOrdered By: Fany Diaz on 12-31-2022 Addendum Document Comment . [facility] Comment on above: The SPE pattern refl ects a polyclonal increase in gammaglobulin. Hypergammaglobulinemia is found in a wide varietyof infectious, non-infectious, and autoimmune diseasestates. Evidence of monoclonal protein is not apparent. Tvxjw-2-Jidgejkja 0.2 g/dL 0.0-0.4 [facility] Sopus-0-Shafduxpr 0.9 g/dL 0.4-1.0 [facility] Estimated GFR (MDRD) Amer 75 mL/min >60 [facility] Comment on above: GFR Calc Estimated GFR (MDRD) Non-Af Amer 62 mL/min >60 [facility] Comment on above: Non- GFR Calc Gamma Globulins 1.9 g/dL 0.4-1.8 [facility] Total Iron Binding Capacity 355 ug/dL 250-450 [facility] Vitamin D 25-Hydroxy 33.7 ng/mL [facility] Comment on above: Vitamin D 25(OH) Sta tus Range Deficiency <20 ng/mL (50nmol/L) Insufficiency 20 - 30 ng/mL (50 - 75 nmol/L) Sufficiency 30 - 100 ng/mL (75 - 250 nmol/L) Toxicity >100 ng/mL (>250 nmol/L) Platelets bldOrdered By: Roxi Diaz on 12-31-2022 Platelets (Bld) [#/Vol] 265 10*3/uL 150-450 [facility] Protein Fractions Elph [Inte rp]Ordered By: Fany Diaz on 12-31-2022 Protein Fractions [Interp] Comment . [facility] Comment on above: Protein electrophore sis scan will follow via computer,mail, or breaker tender delivery. Protein Test strip Ql (U)Ord ered By: Fany Diaz on 12-31-2022 Protein Ql (U) 15 mg/dl Negative [facility] Serum albumin to globulin ra balaji by protein electrophoresisOrdered By: Fany Diaz on 12-31-2022 Albumin/Globulin Elph [Mass ratio] 0.8 0.7-1.7 [facility] Serum globulin measurement ( mass/volume)Ordered By: Fany Diaz on 12-31-2022 Globulin (S) [Mass/Vol] 4.1 g/dL 2.2-3.9 [facility] Serum or plasma albumin grazyna urement (mass/volume)Ordered By: Fany Diaz on 12-31-2022 Albumin [Mass/Vol] 3.3 g/dL 3.2-5.0 [facility] [place] Serum or plasma beta globuli n measurement by electrophoresis (mass/volume)Ordered By: Fany Diaz on 12-31-2022 Beta globulin Elph [Mass/Vol] 1.1 g/dL 0.7-1.3 [facility] Serum or plasma calcium grazyna urement (mass/volume)Ordered By: Fany Diaz on 12-31-2022 Calcium [Mass/Vol] 8.7 mg/dL 8.5-10.1 [facility] [place] Serum or plasma complement C 3 measurement (mass/volume)Ordered By: Fany Diaz on 12-31-2022 Complement C3 [Mass/Vol] 159 mg/dL 82-167 [facility] Comment on above: Performed at: [address] [id number] Director: Chance Morales PhD, Phone: [phone] Serum or plasma complement C 4 measurement (mass/volume)Ordered By: Fany Diaz on 12-31-2022 Complement C4 [Mass/Vol] 26 mg/dL 12-38 [facility] Serum or plasma creatinine m easurement (mass/volume)Ordered By: Fany Diaz on 12-31-2022 Creatinine [Mass/Vol] 1.26 mg/dL 0.70-1.30 [facility] Comment on above: The validity of the calculated GFR & GFRAA in patients over 70 years has not been determined. Clinical correlation is essential. Serum or plasma ferritin elizabeth surement (mass/volume)Ordered By: Fany Diaz on 12-31-2022 Ferritin [Mass/Vol] 37 ng/mL 26-388 [facility] Serum or plasma iron saturat ion measurement (mass fraction)Ordered By: Fany Diaz on 12-31-2022 Iron saturation [Mass fraction] 10.4 % 15.0-55.0 [facility] Serum or plasma urea nitroge n measurement (mass/volume)Ordered By: Fany Diaz on 12-31-2022 Urea nitrogen [Mass/Vol] 27 mg/dL 7-18 [facility] Serum or plasma uric acid me asurement (mass/volume)Ordered By: Fany Diaz on 12-31-2022 Urate [Mass/Vol] 8.2 mg/dL 3.5-7.2 [facility] Comment on above: The drugs N-Acetylcy steine and Metamizole may falsely depress this assay. Thin prep Papanicolaou smear with manual screeningOrdered By: Fany Diaz on 12-31-2022 Thin prep Papanicolaou smear with manual screening See comment [facility] Comment on above: NOT OBSERVED Total protein bloodOrdered B y: Fany Diaz on 12-31-2022 Protein [Mass/Vol] 7.5 g/dL 6.0-8.5 [facility] [place] Urine blood detectionOrdered By: Fany Diaz on 12-31-2022 RBC Ql (U) Negative Negative [facility] Urine clarityOrdered By: Roxi Diaz on 12-31-2022 Clarity (U) Sl. Cloudy Clear [facility] Urine color determinationOrd ered By: Fany Diaz on 12-31-2022 Color (U) Yellow Yellow [facility] Urine creatinine measurement (mass/volume)Ordered By: Fany Diaz on 12-31-2022 Creatinine (U) [Mass/Vol] 95.50 mg/dL NO RANGE EST. [facility] Urine glucose detectionOrder ed By: Fany Diaz on 12-31-2022 Glucose Ql (U) Normal mg/dl Normal [facility] Urine leukocyte esterase det ection by dipstickOrdered By: Fany Diaz on 12-31-2022 Leukocyte esterase Test strip Ql (U) Negative Negative [facility] Urine pHOrdered By: Fany Diaz on 12-31-2022 pH (U) 5.0 [pH] 5.0 - 8.0 [facility] Urine protein measurement (m ass/volume)Ordered By: Fany Diaz on 12-31-2022 Protein (U) [Mass/Vol] 15.7 mg/dL 0.0-11.8 [facility] Urine specific gravity measu rementOrdered By: [place] [facility] Diaz on 12-31-2022 Specific gravity (U) [Rel density] 1.015 1.002-1.03 0 [facility] Urobilinogen Auto test strip Ql (U)Ordered By: [place] [facility] on 12-31-2022 Urobilinogen Ql (U) Normal mg/dl Normal [facility] Laboratory - Hematology and Cell countson 12-10-2022 HbA1c (Bld) [Mass fraction] 7.1 % 4.2-6.3 [facility] - Chemistry and C hemistry - challengeOrdered By: Brandt Winter on 11-07-2022 Natriuretic peptide B (Bld) [Mass/Vol] 9.7 pg/mL 0-100 [facility] T4 [Mass/Vol] 10.9 ug/dL 4.5-12.1 [facility] No Panel InformationOrdered By: Brandt Winter on 11-07-2022 Thyroid Stimulating Hormone (TSH) 0.27 uIU/mL 0.358-3.74 [facility] Total Triiodothyronine 1.16 ng/mL 0.6-1.81 [facility] Absolute lymphocyte countOrd ered By: Brandt Winter on 10-31-2022 Lymphocytes Auto (Unsp spec) [#/Vol] 1.83 10*3/uL 0.83-4.51 [facility] Basophil percentageOrdered B y: Brandt Winter on 10-31-2022 Basophils/100 WBC (Bld) 0.6 % 0-1 [facility] Bilirubin [Mass/Vol] 0.60 mg/dL 0.20-1.00 [facility] Comment on above: For patients on eltr ombopag therapy, use of Dimension [place] TBIL is not recommended. Chloride [Moles/Vol] 107 mmol/L 98-107 [facility] Eosinophils/100 WBC (Bld) 3.8 % 0-5 [facility] Glucose [Mass/Vol] 119 mg/dL 74-106 [facility] [place] Comment on above: Fasting Glucose resu lt from 100 to 125 mg/dL suggests IMPAIRED HOMEOSTASIS per A.D.A. criteria. Neutrophils (Bld) [#/Vol] 4.7 10*3/uL 2.0-7.7 [facility] Neutrophils/100 WBC (Bld) 59.2 % 47-70 [facility] Potassium [Moles/Vol] 4.9 mmol/L 3.5-5.1 [facility] Protein [Mass/Vol] 8.9 g/dL 6.4-8.2 [facility] [place] Sodium [Moles/Vol] 135 mmol/L 136-145 [facility] [place] WBC (Bld) [#/Vol] 7.9 10*3/uL 4.4-11.0 [facility] [place] Blood erythrocytes count (nu mber/volume)Ordered By: Brandt Winter on 10-31-2022 RBC (Bld) [#/Vol] 3.94 10*6/uL 4.6-6.2 [facility] Blood hemoglobin measurement (mass/volume)Ordered By: Brandt Winter on 10-31-2022 Hemoglobin (Bld) [Mass/Vol] 10.4 g/dL 13.0-16.5 [facility] Blood lymphocytes/100 leukoc ytesOrdered By: Brandt Winter on 10-31-2022 Lymphocytes/100 WBC (Bld) 23.2 % 19-41 [facility] Blood monocytes/100 leukocyt esOrdered By: Brandt Winter on 10-31-2022 Monocytes/100 WBC (Bld) 12.7 % 0-10 [facility] Blood platelet mean volumeOr dered By: Brandt Winter on 10-31-2022 Platelet mean volume (Bld) [Entitic vol] 10.2 fL 6.2-12.0 [facility] Determination of erythrocyte mean corpuscular volume (MCV)Ordered By: Brandt Winter on 10-31-2022 MCV (RBC) [Entitic vol] 81.0 fL 80-94 [facility] Hematocrit Auto (Bld) [Volum e fraction]Ordered By: Brandt Winter on 10-31-2022 Hematocrit (Bld) [Volume fraction] 31.9 % 40-54 [facility] Iron measurement (mass/mass) Ordered By: Brandt Winter on 10-31-2022 Iron (Unsp spec) [Mass/Mass] 35 ug/dL 65-175 [facility] Laboratory - Chemistry and C hemistry - challengeOrdered By: [facility]22 ALP [Catalytic activity/Vol] 103 U/L 45-117 [facility] ALT [Catalytic activity/Vol] 24 U/L 16-61 [facility] CO2 [Moles/Vol] 19.0 mmol/L 21.0-32.0 [facility] Globulin (S) [Mass/Vol] 5.8 g/dL 2.2-4.2 [facility] Urea nitrogen/Creatinine [Mass ratio] 27.0 mg/mg 10-20 [facility] Laboratory - Hematology and Cell countsOrdered By: [facility] on 10-31-2022 Erythrocyte distribution width (RBC) [Entitic vol] 49.3 fL 35.1-43.9 [facility] Erythrocyte distribution width (RBC) [Ratio] 16.7 % 11.6-14.6 [facility] Immature granulocytes/100 WBC (Bld) 0.500 % 0.0-0.9 [facility] Comment on above: IG% - Immature Granu locytes (promyelocytes, myelocytes and metamyelocytes) > 1% indicates that a LEFT SHIFT is Present. MCH (RBC) [Entitic mass] 26.4 pg 27.0-32.0 [facility] Nucleated RBC/100 WBC (Bld) [Ratio] 0 % 0-5 [facility] MCHC Auto (RBC) [Mass/Vol]Or dered By: Brandt Winter on 10-31-2022 MCHC (RBC) [Mass/Vol] 32.6 g/dL 32-36 [facility] No Panel InformationOrdered By: Brandt Winter on 10-31-2022 Estimated GFR (MDRD) Amer 61 mL/min >60 [facility] Comment on above: GFR Calc Estimated GFR (MDRD) Non-Af Amer 50 mL/min >60 [facility] Comment on above: Non- GFR Calc Thyroid Stimulating Hormone (TSH) 0.23 uIU/mL 0.358-3.74 [facility] Total Iron Binding Capacity 274 ug/dL 250-450 [facility] Vitamin D 25-Hydroxy 12.1 ng/mL [facility] Comment on above: Vitamin D 25(OH) Sta tus Range Deficiency <20 ng/mL (50nmol/L) Insufficiency 20 - 30 ng/mL (50 - 75 nmol/L) Sufficiency 30 - 100 ng/mL (75 - 250 nmol/L) Toxicity >100 ng/mL (>250 nmol/L) Platelets bldOrdered By: Ximena Winter on 10-31-2022 Platelets (Bld) [#/Vol] 253 10*3/uL 150-450 [facility] Serum or plasma albumin grazyna urement (mass/volume)Ordered By: Brandt Winter on 10-31-2022 Albumin [Mass/Vol] 3.1 g/dL 3.2-5.0 [facility] [place] Serum or plasma albumin/glob ulin mass ratioOrdered By: Brandt Winter on 10-31-2022 Albumin/Globulin [Mass ratio] 0.5 {ratio} 0.9-2.4 [facility] Serum or plasma calcium grayzna urement (mass/volume)Ordered By: Brandt Winter on 10-31-2022 Calcium [Mass/Vol] 9.1 mg/dL 8.5-10.1 [facility] [place] Serum or plasma creatinine m easurement (mass/volume)Ordered By: Brandt Winter on 10-31-2022 Creatinine [Mass/Vol] 1.52 mg/dL 0.70-1.30 [facility] Comment on above: The validity of the calculated GFR & GFRAA in patients over 70 years has not been determined. Clinical correlation is essential. Serum or plasma ferritin elizabeth surement (mass/volume)Ordered By: Brandt Winter on 10-31-2022 Ferritin [Mass/Vol] 158 ng/mL 26-388 [facility] Serum or plasma iron saturat ion measurement (mass fraction)Ordered By: Brandt Winter on 10-31-2022 Iron saturation [Mass fraction] 12.8 % 15.0-55.0 [facility] Serum or plasma urea nitroge n measurement (mass/volume)Ordered By: Brandt Winter on 10-31-2022 Urea nitrogen [Mass/Vol] 41 mg/dL 7-18 [facility] Thin prep Papanicolaou smear with manual screeningOrdered By: Brandt Winter on 10-31-2022 Thin prep Papanicolaou smear with manual screening 22 U/L 15-37 [facility] Thin prep Papanicolaou smear with manual screening 9 5-15 [facility] Glucose Glucometer (BldC) [M ass/Vol]Ordered By: Dr. Ospina on 08-03-2022 Glucose [Mass/Vol] 343 mg/dL 74-106 [facility] [place] Comment on above: MANAGEMENT OF PATIEN T CARE PER NURSING PROTOCOL Absolute lymphocyte countOrd ered By: Dr. Bell on 08-02-2022 Lymphocytes Auto (Unsp spec) [#/Vol] 1.27 10*3/uL 0.83-4.51 [facility] Basophil percentageOrdered B y: Dr. Bell on 08-02-2022 Basophils/100 WBC (Bld) 0.8 % 0-1 [facility] Bilirubin [Mass/Vol] 0.50 mg/dL 0.20-1.00 [facility] Comment on above: For patients on eltr ombopag therapy, use of Dimension [place] TBIL is not recommended. Chloride [Moles/Vol] 104 mmol/L 98-107 [facility] Cholesterol [Mass/Vol] 133 mg/dL <200 [facility] Comment on above: <200 mg/dL Desirable 200-240 mg/dL Borderline >240 mg/dL High Risk Eosinophils/100 WBC (Bld) 3.1 % 0-5 [facility] Glucose [Mass/Vol] 280 mg/dL 74-106 [facility] [place] Comment on above: Glucose result great er than or equal to 200 mg/dLsuggests DIABETES MELLITUS per A.D.A. criteria. Neutrophils (Bld) [#/Vol] 3.5 10*3/uL 2.0-7.7 [facility] Neutrophils/100 WBC (Bld) 59.7 % 47-70 [facility] Potassium [Moles/Vol] 4.0 mmol/L 3.5-5.1 [facility] Protein [Mass/Vol] 7.6 g/dL 6.4-8.2 [facility] [place] Sodium [Moles/Vol] 135 mmol/L 136-145 [facility] [place] Triglyceride [Mass/Vol] 300 mg/dL <199 [facility] Comment on above: The drugs N-Acetylcy steine and Metamizole may falsely depress this assay.Serum Triglycerides Reference Interval Normal <150 mg/dL Borderline high 150 - 199 mg/dL High 200 - 499 mg/dL Very High > or = 500 mg/dL WBC (Bld) [#/Vol] 5.9 10*3/uL 4.4-11.0 [facility] [place] Blood erythrocytes count (nu mber/volume)Ordered By: Dr. Bell on 08-02-2022 RBC (Bld) [#/Vol] 4.27 10*6/uL 4.6-6.2 [facility] Blood hemoglobin measurement (mass/volume)Ordered By: Dr. Bell on 08-02-2022 Hemoglobin (Bld) [Mass/Vol] 10.7 g/dL 13.0-16.5 [facility] Blood lymphocytes/100 leukoc ytesOrdered By: Dr. Bell on 08-02-2022 Lymphocytes/100 WBC (Bld) 21.5 % 19-41 [facility] Blood monocytes/100 leukocyt esOrdered By: Dr. Bell on 08-02-2022 Monocytes/100 WBC (Bld) 14.4 % 0-10 [facility] Blood platelet mean volumeOr dered By: Dr. Bell on 08-02-2022 Platelet mean volume (Bld) [Entitic vol] 9.9 fL 6.2-12.0 [facility] Determination of erythrocyte mean corpuscular volume (MCV)Ordered By: Dr. Bell on 08-02-2022 MCV (RBC) [Entitic vol] 78.9 fL 80-94 [facility] Hematocrit Auto (Bld) [Volum e fraction]Ordered By: Dr. Bell on 08-02-2022 Hematocrit (Bld) [Volume fraction] 33.7 % 40-54 [facility] Laboratory - Chemistry and C hemistry - challengeOrdered By: Dr. Bell on 08-02-2022 ALP [Catalytic activity/Vol] 118 U/L 45-117 [facility] ALT [Catalytic activity/Vol] 25 U/L 16-61 [facility] CO2 [Moles/Vol] 20.0 mmol/L 21.0-32.0 [facility] Globulin (S) [Mass/Vol] 4.4 g/dL 2.2-4.2 [facility] Urea nitrogen/Creatinine [Mass ratio] 21.7 mg/mg 10-20 [facility] - Hematology and Cell countsOrdered By: Dr. Bell on 08-02-2022 Erythrocyte distribution width (RBC) [Entitic vol] 46.5 fL 35.1-43.9 [facility] Erythrocyte distribution width (RBC) [Ratio] 16.4 % 11.6-14.6 [facility] Immature granulocytes/100 WBC (Bld) 0.500 % 0.0-0.9 [facility] Comment on above: IG% - Immature Granu locytes (promyelocytes, myelocytes and metamyelocytes) > 1% indicates that a LEFT SHIFT is Present. MCH (RBC) [Entitic mass] 25.1 pg 27.0-32.0 [facility] Nucleated RBC/100 WBC (Bld) [Ratio] 0 % 0-5 [facility] MCHC Auto (RBC) [Mass/Vol]Or dered By: Dr. Bell on 08-02-2022 MCHC (RBC) [Mass/Vol] 31.8 g/dL 32-36 [facility] No Panel InformationOrdered By: Dr. Bell on 08-02-2022 Estimated Creatinine Clearance Calc 83.01 ml/min [facility] Estimated GFR (MDRD) Amer 102 mL/min >60 [facility] Comment on above: GFR Calc Estimated GFR (MDRD) Non-Af Amer 84 mL/min >60 [facility] Comment on above: Non- GFR Calc Thyroid Stimulating Hormone (TSH) 1.36 uIU/mL 0.358-3.74 [facility] Platelets bldOrdered By: Dr. Bell on 08-02-2022 Platelets (Bld) [#/Vol] 193 10*3/uL 150-450 [facility] Serum or plasma albumin grazyna urement (mass/volume)Ordered By: Dr. Bell on 08-02-2022 Albumin [Mass/Vol] 3.2 g/dL 3.2-5.0 [facility] [place] Serum or plasma albumin/glob ulin mass ratioOrdered By: Dr. Bell on 08-02-2022 Albumin/Globulin [Mass ratio] 0.7 {ratio} 0.9-2.4 [facility] Serum or plasma calcium grazyna urement (mass/volume)Ordered By: Dr. Bell on 08-02-2022 Calcium [Mass/Vol] 9.0 mg/dL 8.5-10.1 [facility] [place] Serum or plasma cholesterol in HDL measurement (mass/volume)Ordered By: Dr. Bell on 08-02-2022 Cholesterol in HDL [Mass/Vol] 33 mg/dL >40 [facility] Comment on above: The drugs N-Acetylcy steine and Metamizole may falsely depress this assay. Reference Range HDL <40 mg/dL Low HDL Cholesterol HDL >or= 60 mg/dL High HDL Cholesterol Serum or plasma cholesterol in VLDL measurement (mass/volume)Ordered By: Dr. Bell on 08-02-2022 Cholesterol in VLDL [Mass/Vol] 60 mg/dL 5-40 [facility] Serum or plasma creatinine m easurement (mass/volume)Ordered By: Dr. Bell on 08-02-2022 Creatinine [Mass/Vol] 0.97 mg/dL 0.70-1.30 [facility] Comment on above: The validity of the calculated GFR & GFRAA in patients over 70 years has not been determined. Clinical correlation is essential. Serum or plasma low density lipoprotein (LDL) cholesterol measurement (mass/volume)Ordered By: Dr. Bell on 08-02-2022 Cholesterol in LDL [Mass/Vol] 40 mg/dL 0-130 [facility] Serum or plasma urea nitroge n measurement (mass/volume)Ordered By: Dr. Bell on 08-02-2022 Urea nitrogen [Mass/Vol] 21 mg/dL 7-18 [facility] Thin prep Papanicolaou smear with manual screeningOrdered By: Dr. Bell on 08-02-2022 Thin prep Papanicolaou smear with manual screening 18 U/L 15-37 [facility] Thin prep Papanicolaou smear with manual screening 11 5-15 [facility] Whole blood hemoglobin A1c/t otal hemoglobin ratio (mass fraction)Ordered By: Dr. Bell on 08-02-2022 HbA1c (Bld) [Mass fraction] 9.6 % 3.8-5.6 [facility] Comment on above: Normal < 5.7 % Predi abetic 5.7 - 6.4 % Diabetic >or= 6.5 % Please note range changes. INR in Blood by Coagulation assayOrdered By: ED PROVIDER on 08-01-2022 INR Coag (Bld) [Relative time] 1.1 {INR} [facility] - Chemistry and C hemistry - challengeOrdered By: Dr. Bell on 08-01-2022 Magnesium [Mass/Vol] 1.7 mg/dL 1.6-2.6 [facility] Laboratory - CoagulationOrde red By: ED PROVIDER on 08-01-2022 aPTT Coag (Bld) [Time] 28.7 s 24.1-36.2 [facility] PT Coag (PPP) [Time] 13.8 s 11.7-14.9 [facility] No Panel InformationOrdered By: Dr. Hill on 08-01-2022 Troponin I High Sensitivity 9 pg/mL 3.0-78.0 [facility] Comment on above: Please Note: New Karly t Units and Gender Specific Reference Ranges. For more information see Policy Stat Procedure [place] High Sensitivity Troponin (TNIH) and attachments. Basophil percentageOrdered B y: Oren Sky on 06-26-2022 Chloride [Moles/Vol] 104 mmol/L 98-107 [facility] Glucose [Mass/Vol] 224 mg/dL 74-106 [facility] [place] Comment on above: Glucose result great er than or equal to 200 mg/dLsuggests DIABETES MELLITUS per A.D.A. criteria. Potassium [Moles/Vol] 4.6 mmol/L 3.5-5.1 [facility] Sodium [Moles/Vol] 134 mmol/L 136-145 [facility] [place] Basophil percentageOrdered B y: Coreen Gerardo on 06-26-2022 Cholesterol [Mass/Vol] 145 mg/dL <200 [facility] Comment on above: <200 mg/dL Desirable 200-240 mg/dL Borderline >240 mg/dL High Risk Testosterone [Mass/Vol] 122 ng/dL 264-916 [facility] Comment on above: Adult male reference interval is based on a population ofhealthy nonobese males (BMI <30) between 19 and 39 yearsold. nicol Arroyo.al. JCEM 2017,102;[id number]. PMID:[id number]. Triglyceride [Mass/Vol] 271 mg/dL <199 [facility] Comment on above: The drugs N-Acetylcy steine and Metamizole may falsely depress this assay.Serum Triglycerides Reference Interval Normal <150 mg/dL Borderline high 150 - 199 mg/dL High 200 - 499 mg/dL Very High > or = 500 mg/dL Free testosterone percentage Ordered By: Coreen Gerardo on 06-26-2022 Testosterone Free/Testosterone.total [Mass fraction] 3.10 % 1.50-4.20 [facility] Comment on above: Performed at: [employer] [address] [id number] Director: Chance Morales PhD, Phone: [phone] at: [facility] [id number] Director: Rhina Norris MD, Phone: [phone] Laboratory - Chemistry and C hemistry - challengeOrdered By: Oren Sky on 06-26-2022 CO2 [Moles/Vol] 23.0 mmol/L 21.0-32.0 [facility] Urea nitrogen/Creatinine [Mass ratio] 30.7 mg/mg 10- [facility] Laboratory - Chemistry and C hemistry - challengeOrdered By: Coreen Gerardo on 06-26-2022 Free T4 [Mass/Vol] 1.33 ng/dL 0.76-1.46 [facility] [place] No Panel InformationOrdered By: Oren Sky on 06-26-2022 Estimated GFR (MDRD) Amer 60 mL/min >60 [facility] Comment on above: GFR Calc Estimated GFR (MDRD) Non-Af Amer 50 mL/min >60 [facility] Comment on above: Non- GFR Calc No Panel InformationOrdered By: Coreen Gerardo on 06-26-2022 Thyroid Stimulating Hormone (TSH) 1.59 uIU/mL 0.358-3.74 [facility] Urine Microalbumin/Creatinine Ratio 72.5 mg/g CRE <30 [facility] Serum or plasma calcium grazyna urement (mass/volume)Ordered By: Oren Sky on 06-26-2022 Calcium [Mass/Vol] 9.0 mg/dL 8.5-10.1 [facility] [place] Serum or plasma cholesterol in HDL measurement (mass/volume)Ordered By: Coreen Gerardo on 06-26-2022 Cholesterol in HDL [Mass/Vol] 36 mg/dL >40 [facility] Comment on above: The drugs N-Acetylcy steine and Metamizole may falsely depress this assay. Reference Range HDL <40 mg/dL Low HDL Cholesterol HDL >or= 60 mg/dL High HDL Cholesterol Serum or plasma cholesterol in VLDL measurement (mass/volume)Ordered By: Coreen Gerardo on 06-26-2022 Cholesterol in VLDL [Mass/Vol] 54 mg/dL 5-40 [facility] Serum or plasma creatinine m easurement (mass/volume)Ordered By: Oren Sky on 06-26-2022 Creatinine [Mass/Vol] 1.53 mg/dL 0.70-1.30 [facility] Comment on above: The validity of the calculated GFR & GFRAA in patients over 70 years has not been determined. Clinical correlation is essential. Serum or plasma low density lipoprotein (LDL) cholesterol measurement (mass/volume)Ordered By: Coreen Gerardo on 06-26-2022 Cholesterol in LDL [Mass/Vol] 55 mg/dL 0-130 [facility] Serum or plasma testosterone free measurement (mass/volume)Ordered By: Coreen Gerardo on 06-26-2022 Testosterone Free [Mass/Vol] 3.78 ng/dL 5.00-21.00 [facility] Serum or plasma urea nitroge n measurement (mass/volume)Ordered By: Oren Sky on 06-26-2022 Urea nitrogen [Mass/Vol] 47 mg/dL 7-18 [facility] Thin prep Papanicolaou smear with manual screeningOrdered By: Oren Sky on 06-26-2022 Thin prep Papanicolaou smear with manual screening 7 5-15 [facility] Thin prep Papanicolaou smear with manual screeningOrdered By: Coreen Gerardo on 06-26-2022 Thin prep Papanicolaou smear with manual screening 51.1 mg/L NO RANGE EST. [facility] Urine creatinine measurement (mass/volume)Ordered By: Coreen Gerardo on 06-26-2022 Creatinine (U) [Mass/Vol] 70.50 mg/dL NO RANGE EST. [facility] Laboratory - Hematology and Cell countson 06-18-2022 HbA1c (Bld) [Mass fraction] 8.2 % [facility] Basophil percentageOrdered B y: Lydia Segura on 05-18-2022 Chloride [Moles/Vol] 106 mmol/L 98-107 [facility] Glucose [Mass/Vol] 251 mg/dL 74-106 [facility] [place] Comment on above: Glucose result great er than or equal to 200 mg/dLsuggests DIABETES MELLITUS per A.D.A. criteria. Potassium [Moles/Vol] 3.8 mmol/L 3.5-5.1 [facility] Sodium [Moles/Vol] 135 mmol/L 136-145 [facility] [place] Laboratory - Chemistry and C hemistry - challengeOrdered By: Lydia Segura on 05-18-2022 CO2 [Moles/Vol] 21.0 mmol/L 21.0-32.0 [facility] Urea nitrogen/Creatinine [Mass ratio] 19.4 mg/mg - [facility] No Panel InformationOrdered By: Lydia Segura on 05-18-2022 Estimated GFR (MDRD) Amer 90 mL/min >60 [facility] Comment on above: GFR Calc Estimated GFR (MDRD) Non-Af Amer 75 mL/min >60 [facility] Comment on above: Non- GFR Calc Serum or plasma calcium grazyna urement (mass/volume)Ordered By: Lydia Segura on 05-18-2022 Calcium [Mass/Vol] 8.6 mg/dL 8.5-10.1 [facility] [place] Serum or plasma creatinine m easurement (mass/volume)Ordered By: Lydia Segura on 05-18-2022 Creatinine [Mass/Vol] 1.08 mg/dL 0.70-1.30 [facility] Comment on above: The validity of the calculated GFR & GFRAA in patients over 70 years has not been determined. Clinical correlation is essential. Serum or plasma urea nitroge n measurement (mass/volume)Ordered By: Lydia Segura on 05-18-2022 Urea nitrogen [Mass/Vol] 21 mg/dL 7-18 [facility] Thin prep Papanicolaou smear with manual screeningOrdered By: Lydia Segura on 05-18-2022 Thin prep Papanicolaou smear with manual screening 8 5-15 [facility] Absolute lymphocyte countOrd ered By: Oren Sky on 04-17-2022 Lymphocytes Auto (Unsp spec) [#/Vol] 2.25 10*3/uL 0.83-4.51 [facility] Basophil percentageOrdered B y: Oren Sky on 04-17-2022 Basophils/100 WBC (Bld) 1.1 % 0-1 [facility] Chloride [Moles/Vol] 102 mmol/L 98-107 [facility] Eosinophils/100 WBC (Bld) 3.3 % 0-5 [facility] Glucose [Mass/Vol] 263 mg/dL 74-106 [facility] [place] Comment on above: Glucose result great er than or equal to 200 mg/dLsuggests DIABETES MELLITUS per A.D.A. criteria. Neutrophils (Bld) [#/Vol] 5.0 10*3/uL 2.0-7.7 [facility] Neutrophils/100 WBC (Bld) 59.8 % 47-70 [facility] Potassium [Moles/Vol] 4.0 mmol/L 3.5-5.1 [facility] Sodium [Moles/Vol] 135 mmol/L 136-145 [facility] [place] WBC (Bld) [#/Vol] 8.4 10*3/uL 4.4-11.0 [facility] [place] Blood erythrocytes count (nu mber/volume)Ordered By: Oren Sky on 04-17-2022 RBC (Bld) [#/Vol] 4.44 10*6/uL 4.6-6.2 [facility] Blood hemoglobin measurement (mass/volume)Ordered By: Oren Sky on 04-17-2022 Hemoglobin (Bld) [Mass/Vol] 11.1 g/dL 13.0-16.5 [facility] Blood lymphocytes/100 leukoc ytesOrdered By: Oren Sky on 04-17-2022 Lymphocytes/100 WBC (Bld) 26.8 % 19-41 [facility] Blood monocytes/100 leukocyt esOrdered By: Oren Sky on 04-17-2022 Monocytes/100 WBC (Bld) 8.6 % 0-10 [facility] Blood platelet mean volumeOr dered By: Oren Sky on 04-17-2022 Platelet mean volume (Bld) [Entitic vol] 10.3 fL 6.2-12.0 [facility] Determination of erythrocyte mean corpuscular volume (MCV)Ordered By: Oren Sky on 04-17-2022 MCV (RBC) [Entitic vol] 80.2 fL 80-94 [facility] Hematocrit Auto (Bld) [Volum e fraction]Ordered By: Oren Sky on 04-17-2022 Hematocrit (Bld) [Volume fraction] 35.6 % 40-54 [facility] Iron measurement (mass/mass) Ordered By: Oren Sky on 04-17-2022 Iron (Unsp spec) [Mass/Mass] 48 ug/dL 65-175 [facility] Laboratory - Chemistry and C hemistry - challengeOrdered By: Oren Sky on 04-17-2022 CO2 [Moles/Vol] 22.0 mmol/L 21.0-32.0 [facility] Natriuretic peptide B (Bld) [Mass/Vol] 37.2 pg/mL 0-100 [facility] Urea nitrogen/Creatinine [Mass ratio] 25.8 mg/mg 10-20 [facility] Laboratory - Hematology and Cell countsOrdered By: Oren Sky on 04-17-2022 Erythrocyte distribution width (RBC) [Entitic vol] 50.0 fL 35.1-43.9 [facility] Erythrocyte distribution width (RBC) [Ratio] 17.2 % 11.6-14.6 [facility] Immature granulocytes/100 WBC (Bld) 0.400 % 0.0-0.9 [facility] Comment on above: IG% - Immature Granu locytes (promyelocytes, myelocytes and metamyelocytes) > 1% indicates that a LEFT SHIFT is Present. MCH (RBC) [Entitic mass] 25.0 pg 27.0-32.0 [facility] Nucleated RBC/100 WBC (Bld) [Ratio] 0 % 0-5 [facility] MCHC Auto (RBC) [Mass/Vol]Or dered By: Oren Sky on 04-17-2022 MCHC (RBC) [Mass/Vol] 31.2 g/dL 32-36 [facility] No Panel InformationOrdered By: Oren Sky on 04-17-2022 Estimated GFR (MDRD) Amer 77 mL/min >60 [facility] Comment on above: GFR Calc Estimated GFR (MDRD) Non-Af Amer 64 mL/min >60 [facility] Comment on above: Non- GFR Calc Total Iron Binding Capacity 350 ug/dL 250-450 [facility] Platelets bldOrdered By: Jose Sky on 04-17-2022 Platelets (Bld) [#/Vol] 268 10*3/uL 150-450 [facility] Serum or plasma calcium grazyna urement (mass/volume)Ordered By: Oren Sky on 04-17-2022 Calcium [Mass/Vol] 8.9 mg/dL 8.5-10.1 [facility] [place] Serum or plasma creatinine m easurement (mass/volume)Ordered By: Oren Sky on 04-17-2022 Creatinine [Mass/Vol] 1.24 mg/dL 0.70-1.30 [facility] Comment on above: The validity of the calculated GFR & GFRAA in patients over 70 years has not been determined. Clinical correlation is essential. Serum or plasma iron saturat ion measurement (mass fraction)Ordered By: Oren Sky on 04-17-2022 Iron saturation [Mass fraction] 13.7 % 15.0-55.0 [facility] Serum or plasma urea nitroge n measurement (mass/volume)Ordered By: Oren Sky on 04-17-2022 Urea nitrogen [Mass/Vol] 32 mg/dL 7-18 [facility] Thin prep Papanicolaou smear with manual screeningOrdered By: Oren Sky on 04-17-2022 Thin prep Papanicolaou smear with manual screening 11 5-15 [facility] Laboratory - Hematology and Cell countson 01-15-2022 HbA1c (Bld) [Mass fraction] 8.3 % [facility] Absolute lymphocyte counton 09-04-2021 Lymphocytes Auto (Unsp spec) [#/Vol] 1.59 10*3/uL 0.83-4.51 [facility] Work Phone: Basophil percentageon 2021 Basophils/100 WBC (Bld) 0.5 % 0-1 [facility] Work Phone: Bilirubin [Mass/Vol] 0.60 mg/dL 0.20-1.00 [facility] Work Phone: Comment on above: For patients on eltr ombopag therapy, use of Dimension [place] TBIL is not recommended. Chloride [Moles/Vol] 107 mmol/L 98-107 [facility] Work Phone: Eosinophils/100 WBC (Bld) 3.6 % 0-5 [facility] Work Phone: Glucose [Mass/Vol] 174 mg/dL 74-106 [facility] [place] Work Phone: Comment on above: Fasting Glucose resu lt greater than or equal to 126 mg/dL suggests DIABETES MELLITUS per A.D.A. criteria. Neutrophils (Bld) [#/Vol] 4.8 10*3/uL 2.0-7.7 [facility] Work Phone: Neutrophils/100 WBC (Bld) 63.3 % 47-70 [facility] Work Phone: Potassium [Moles/Vol] 4.0 mmol/L 3.5-5.1 [facility] Work Phone: Protein [Mass/Vol] 7.6 g/dL 6.4-8.2 [facility] [place] Work Phone: Sodium [Moles/Vol] 138 mmol/L 136-145 [facility] [place] Work Phone: WBC (Bld) [#/Vol] 7.5 10*3/uL 4.4-11.0 [facility] [place] Work Phone: Blood erythrocytes count (nu mber/volume)on 09-04-2021 RBC (Bld) [#/Vol] 4.26 10*6/uL 4.6-6.2 [facility] Work [facility]: Blood hemoglobin measurement (mass/volume)on 09-04-2021 Hemoglobin (Bld) [Mass/Vol] 11.0 g/dL 13.0-16.5 [facility] Work Phone: Blood lymphocytes/100 leukoc yteson 09-04-2021 Lymphocytes/100 WBC (Bld) 21.2 % 19-41 [facility] Work Phone: Blood monocytes/100 leukocyt eson 09-04-2021 Monocytes/100 WBC (Bld) 10.7 % 0-10 [facility] Work Phone: Blood platelet mean volumeon 09-04-2021 Platelet mean volume (Bld) [Entitic vol] 10.2 fL 6.2-12.0 [facility] Work Phone: Determination of erythrocyte mean corpuscular volume (MCV)on 09-04-2021 MCV (RBC) [Entitic vol] 81.5 fL 80-94 [facility] Work Phone: Hematocrit Auto (Bld) [Volum e fraction]on 09-04-2021 Hematocrit (Bld) [Volume fraction] 34.7 % 40-54 [facility] Work Phone: Laboratory - Chemistry and C hemistry - challengeon 09-04-2021 ALP [Catalytic activity/Vol] 92 U/L 45-117 [facility] Work Phone: ALT [Catalytic activity/Vol] 23 U/L 16-61 [facility] Work Phone: CO2 [Moles/Vol] 26.0 mmol/L 21.0-32.0 [facility] Work Phone: [phone] Globulin (S) [Mass/Vol] 4.5 g/dL 2.2-4.2 [facility] Work Phone: Natriuretic peptide B (Bld) [Mass/Vol] 105.8 pg/mL 0-100 [facility] Work Phone: Urea nitrogen/Creatinine [Mass ratio] 25.2 mg/mg 10-20 [facility] Work Phone: [phone] Laboratory - Hematology and Cell countson 09-04-2021 Erythrocyte distribution width (RBC) [Entitic vol] 46.4 fL 35.1-43.9 [facility] Work Phone: [phone] Erythrocyte distribution width (RBC) [Ratio] 15.7 % 11.6-14.6 [facility] Work Phone: [phone] Immature granulocytes/100 WBC (Bld) 0.700 % 0.0-0.9 [facility] Work Phone: [phone] Comment on above: IG% - Immature Granu locytes (promyelocytes, myelocytes and metamyelocytes) > 1% indicates that a LEFT SHIFT is Present. MCH (RBC) [Entitic mass] 25.8 pg 27.0-32.0 [facility] Work Phone: [phone] Nucleated RBC/100 WBC (Bld) [Ratio] 0 % 0-5 [facility] Work Phone: [phone] MCHC Auto (RBC) [Mass/Vol]on 09-04-2021 MCHC (RBC) [Mass/Vol] 31.7 g/dL 32-36 [facility] Work Phone: [phone] No Panel Informationon 09-04 Troponin I High Sensitivity 16 pg/mL 3.0-78.0 [facility] Work Phone: [phone] Comment on above: Please Note: New Karly t Units and Gender Specific Reference Ranges. For more information see Policy Stat Procedure [place] High Sensitivity Troponin (TNIH) and attachments. Estimated Creatinine Clearance Calc 92.55 ml/min [facility] Work Phone: [phone] Estimated GFR (MDRD) Amer 115 mL/min >60 [facility] Work Phone: [phone] Comment on above: GFR Calc Estimated GFR (MDRD) Non-Af Amer 95 mL/min >60 [facility] Work Phone: [phone] Comment on above: Non- GFR Calc Platelets bldon 09-04-2021 Platelets (Bld) [#/Vol] 200 10*3/uL 150-450 [facility] Work Phone: [phone] Serum or plasma albumin grazyna urement (mass/volume)on 09-04-2021 Albumin [Mass/Vol] 3.1 g/dL 3.2-5.0 [facility] [place] Work Phone: [phone] Serum or plasma albumin/glob ulin mass ratioon 09-04-2021 Albumin/Globulin [Mass ratio] 0.7 {ratio} 0.9-2.4 [facility] Work Phone: [phone] Serum or plasma calcium grazyna urement (mass/volume)on 09-04-2021 Calcium [Mass/Vol] 8.5 mg/dL 8.5-10.1 [facility] [place] Work Phone: [phone] Serum or plasma creatinine m easurement (mass/volume)on 09-04-2021 Creatinine [Mass/Vol] 0.87 mg/dL 0.70-1.30 [facility] Work Phone: [phone] Comment on above: The validity of the calculated GFR & GFRAA in patients over 70 years has not been determined. Clinical correlation is essential. Serum or plasma urea nitroge n measurement (mass/volume)on 09-04-2021 Urea nitrogen [Mass/Vol] 22 mg/dL 7-18 [facility] Work Phone: [phone] Thin prep Papanicolaou smear with manual screeningon 09-04-2021 Thin prep Papanicolaou smear with manual screening 18 U/L 15-37 [facility] Work Phone: [phone] Thin prep Papanicolaou smear with manual screening 5 5-15 [facility] Work Phone: [phone] Absolute lymphocyte counton 07-16-2021 Lymphocytes Auto (Unsp spec) [#/Vol] 1.10 10*3/uL 0.83-4.51 [facility] Work Phone: [phone] Basophil percentageon 2021 Basophils/100 WBC (Bld) 0.7 % 0-1 [facility] Work Phone: [phone] Chloride [Moles/Vol] 105 mmol/L 98-107 [facility] Work Phone: Eosinophils/100 WBC (Bld) 3.2 % 0-5 [facility] Work Phone: Glucose [Mass/Vol] 283 mg/dL 74-106 [facility] [place] Work Phone: Comment on above: Glucose result great er than or equal to 200 mg/dLsuggests DIABETES MELLITUS per A.D.A. criteria. Neutrophils (Bld) [#/Vol] 6.8 10*3/uL 2.0-7.7 [facility] Work Phone: Neutrophils/100 WBC (Bld) 76.6 % 47-70 [facility] Work Phone: Potassium [Moles/Vol] 3.9 mmol/L 3.5-5.1 [facility] Work Phone: Sodium [Moles/Vol] 138 mmol/L 136-145 [facility] [place] Work Phone: WBC (Bld) [#/Vol] 8.8 10*3/uL 4.4-11.0 [facility] [place] Work Phone: Blood erythrocytes count (nu mber/volume)on 07-16-2021 RBC (Bld) [#/Vol] 4.49 10*6/uL 4.6-6.2 [facility] Work Phone: Blood hemoglobin measurement (mass/volume)on 07-16-2021 Hemoglobin (Bld) [Mass/Vol] 11.8 g/dL 13.0-16.5 [facility] Work Phone: Blood lymphocytes/100 leukoc yteson 07-16-2021 Lymphocytes/100 WBC (Bld) 12.5 % 19-41 [facility] Work Phone: Blood monocytes/100 leukocyt eson 07-16-2021 Monocytes/100 WBC (Bld) 6.7 % 0-10 [facility] Work Phone: Blood platelet mean volumeon 07-16-2021 Platelet mean volume (Bld) [Entitic vol] 10.2 fL 6.2-12.0 [facility] Work Phone: [phone] Determination of erythrocyte mean corpuscular volume (MCV)on 07-16-2021 MCV (RBC) [Entitic vol] 82.9 fL 80-94 [facility] Work Phone: [phone] Hematocrit Auto (Bld) [Volum e fraction]on 07-16-2021 Hematocrit (Bld) [Volume fraction] 37.2 % 40-54 [facility] Work Phone: [phone] Laboratory - Chemistry and C hemistry - challengeon 07-16-2021 CO2 [Moles/Vol] 24.0 mmol/L 21.0-32.0 [facility] Work Phone: [phone] Natriuretic peptide B (Bld) [Mass/Vol] 59.2 pg/mL 0-100 [facility] Work Phone: [phone] Urea nitrogen/Creatinine [Mass ratio] 17.5 mg/mg 10-20 [facility] Work Phone: [phone] Laboratory - Hematology and Cell countson 07-16-2021 Erythrocyte distribution width (RBC) [Entitic vol] 47.2 fL 35.1-43.9 [facility] Work Phone: [phone] Erythrocyte distribution width (RBC) [Ratio] 15.9 % 11.6-14.6 [facility] Work Phone: [phone] Immature granulocytes/100 WBC (Bld) 0.300 % 0.0-0.9 [facility] Work Phone: [phone] Comment on above: IG% - Immature Granu locytes (promyelocytes, myelocytes and metamyelocytes) > 1% indicates that a LEFT SHIFT is Present. MCH (RBC) [Entitic mass] 26.3 pg 27.0-32.0 [facility] Work Phone: [phone] Nucleated RBC/100 WBC (Bld) [Ratio] 0 % 0-5 [facility] Work Phone: [phone] MCHC Auto (RBC) [Mass/Vol]on 07-16-2021 MCHC (RBC) [Mass/Vol] 31.7 g/dL 32-36 [facility] Work Phone: No Panel Informationon 07-16 Estimated Creatinine Clearance Calc 64.68 ml/min [facility] Work Phone: Estimated GFR (MDRD) Amer 76 mL/min >60 [facility] Work Phone: Comment on above: GFR Calc Estimated GFR (MDRD) Non-Af Amer 63 mL/min >60 [facility] Work Phone: Comment on above: Non- GFR Calc Troponin I High Sensitivity 10 pg/mL 3.0-78.0 [facility] Work Phone: Comment on above: Please Note: New Karly t Units and Gender Specific Reference Ranges. For more information see Policy Stat Procedure [place] High Sensitivity Troponin (TNIH) and attachments. Platelets bldon 07-16-2021 Platelets (Bld) [#/Vol] 209 10*3/uL 150-450 [facility] Work Phone: Serum or plasma calcium grazyna urement (mass/volume)on 07-16-2021 Calcium [Mass/Vol] 8.7 mg/dL 8.5-10.1 [facility] [place] Work Phone: Serum or plasma creatinine m easurement (mass/volume)on 07-16-2021 Creatinine [Mass/Vol] 1.26 mg/dL 0.70-1.30 [facility] Work Phone: Comment on above: The validity of the calculated GFR & GFRAA in patients over 70 years has not been determined. Clinical correlation is essential. Serum or plasma urea nitroge n measurement (mass/volume)on 07-16-2021 Urea nitrogen [Mass/Vol] 22 mg/dL 7-18 [facility] Work Phone: Thin prep Papanicolaou smear with manual screeningon 07-16-2021 Thin prep Papanicolaou smear with manual screening 9 5-15 [facility] Work Phone: [phone] Absolute lymphocyte counton 07-12-2021 Lymphocytes Auto (Unsp spec) [#/Vol] 1.80 10*3/uL 0.83-4.51 [facility] Work Phone: Basophil percentageon 2021 Basophils/100 WBC (Bld) 0.9 % 0-1 [facility] Work Phone: Chloride [Moles/Vol] 103 mmol/L 98-107 [facility] Work Phone: Eosinophils/100 WBC (Bld) 5.6 % 0-5 [facility] Work Phone: Glucose [Mass/Vol] 182 mg/dL 74-106 [facility] [place] Work Phone: Comment on above: Fasting Glucose resu lt greater than or equal to 126 mg/dL suggests DIABETES MELLITUS per A.D.A. criteria. Neutrophils (Bld) [#/Vol] 5.1 10*3/uL 2.0-7.7 [facility] Work Phone: Neutrophils/100 WBC (Bld) 61.8 % 47-70 [facility] Work Phone: Potassium [Moles/Vol] 3.6 mmol/L 3.5-5.1 [facility] Work Phone: Sodium [Moles/Vol] 135 mmol/L 136-145 [facility] [place] Work Phone: WBC (Bld) [#/Vol] 8.2 10*3/uL 4.4-11.0 [facility] [place] Work Phone: Blood erythrocytes count (nu mber/volume)on 07-12-2021 RBC (Bld) [#/Vol] 4.31 10*6/uL 4.6-6.2 [facility] Work Phone: Blood hemoglobin measurement (mass/volume)on 07-12-2021 Hemoglobin (Bld) [Mass/Vol] 11.1 g/dL 13.0-16.5 [facility] Work Phone: Blood lymphocytes/100 leukoc yteson 07-12-2021 Lymphocytes/100 WBC (Bld) 22.0 % 19-41 [facility] Work Phone: Blood monocytes/100 leukocyt eson 07-12-2021 Monocytes/100 WBC (Bld) 9.3 % 0-10 [facility] Work Phone: [phone] Blood platelet mean volumeon 07-12-2021 Platelet mean volume (Bld) [Entitic vol] 10.2 fL 6.2-12.0 [facility] Work Phone: [phone] Determination of erythrocyte mean corpuscular volume (MCV)on 07-12-2021 MCV (RBC) [Entitic vol] 80.5 fL 80-94 [facility] Work Phone: [phone] Hematocrit Auto (Bld) [Volum e fraction]on 07-12-2021 Hematocrit (Bld) [Volume fraction] 34.7 % 40-54 [facility] Work Phone: Laboratory - Chemistry and C hemistry - challengeon 07-12-2021 CO2 [Moles/Vol] 24.0 mmol/L 21.0-32.0 [facility] Work Phone: Natriuretic peptide B (Bld) [Mass/Vol] 93.4 pg/mL 0-100 [facility] Work Phone: [phone] Urea nitrogen/Creatinine [Mass ratio] 22.0 mg/mg 10-20 [facility] Work Phone: [phone] Laboratory - Hematology and Cell countson 07-12-2021 Erythrocyte distribution width (RBC) [Entitic vol] 45.5 fL 35.1-43.9 [facility] Work Phone: [phone] Erythrocyte distribution width (RBC) [Ratio] 15.9 % 11.6-14.6 [facility] Work Phone: [phone] Immature granulocytes/100 WBC (Bld) 0.400 % 0.0-0.9 [facility] Work Phone: [phone] Comment on above: IG% - Immature Granu locytes (promyelocytes, myelocytes and metamyelocytes) > 1% indicates that a LEFT SHIFT is Present. MCH (RBC) [Entitic mass] 25.8 pg 27.0-32.0 [facility] Work Phone: Nucleated RBC/100 WBC (Bld) [Ratio] 0 % 0-5 [facility] Work Phone: MCHC Auto (RBC) [Mass/Vol]on 07-12-2021 MCHC (RBC) [Mass/Vol] 32.0 g/dL 32-36 [facility] Work Phone: No Panel Informationon 07-12 Estimated GFR (MDRD) Amer 99 mL/min >60 [facility] Work Phone: Comment on above: GFR Calc Estimated GFR (MDRD) Non-Af Amer 82 mL/min >60 [facility] Work Phone: Comment on above: Non- GFR Calc Thyroid Stimulating Hormone (TSH) 1.06 uIU/mL 0.358-3.74 [facility] Work Phone: Platelets bldon 07-12-2021 Platelets (Bld) [#/Vol] 223 10*3/uL 150-450 [facility] Work Phone: Serum or plasma calcium grazyna urement (mass/volume)on 07-12-2021 Calcium [Mass/Vol] 8.6 mg/dL 8.5-10.1 [facility] [place] Work Phone: [phone] Serum or plasma creatinine m easurement (mass/volume)on 07-12-2021 Creatinine [Mass/Vol] 1.00 mg/dL 0.70-1.30 [facility] Work Phone: Comment on above: The validity of the calculated GFR & GFRAA in patients over 70 years has not been determined. Clinical correlation is essential. Serum or plasma urea nitroge n measurement (mass/volume)on 07-12-2021 Urea nitrogen [Mass/Vol] 22 mg/dL 7-18 [facility] Work Phone: Thin prep Papanicolaou smear with manual screeningon 07-12-2021 Thin prep Papanicolaou smear with manual screening 8 5-15 [facility] Work Phone: Laboratory - Hematology and Cell countson 06-29-2021 HbA1c (Bld) [Mass fraction] 8.9 % [facility] Work Phone: Absolute lymphocyte counton 06-19-2021 Lymphocytes Auto (Unsp spec) [#/Vol] 1.28 10*3/uL 0.83-4.51 [facility] Work Phone: Basophil percentageon 2021 Lactate [Moles/Vol] 2.1 mmol/L 0.4-2.0 [facility] Work Phone: Comment on above: Critical Result(s) C alled at: 14:08:57 06/19/2021 by: Danae Zaldivar to Marlen. Results read back by same. Basophil percentage 0 SEEN /hpf 0-5 [facility] Work Phone: Basophils/100 WBC (Bld) 0.5 % 0-1 [facility] Work Phone: Chloride [Moles/Vol] 104 mmol/L 98-107 [facility] Work Phone: Eosinophils/100 WBC (Bld) 2.6 % 0-5 [facility] Work Phone: [phone] Glucose [Mass/Vol] 191 mg/dL 74-106 [facility] [place] Work Phone: Comment on above: Fasting Glucose resu lt greater than or equal to 126 mg/dL suggests DIABETES MELLITUS per A.D.A. criteria. Neutrophils (Bld) [#/Vol] 5.1 10*3/uL 2.0-7.7 [facility] Work Phone: Neutrophils/100 WBC (Bld) 69.5 % 47-70 [facility] Work Phone: Potassium [Moles/Vol] 3.9 mmol/L 3.5-5.1 [facility] Work Phone: Sodium [Moles/Vol] 137 mmol/L 136-145 [facility] [place] Work Phone: WBC (Bld) [#/Vol] 7.4 10*3/uL 4.4-11.0 [facility] [place] Work Phone: Bilirubin Test strip Ql (U)o n 06-19-2021 Bilirubin Ql (U) Negative Negative [facility] Work Phone: Blood erythrocytes count (nu mber/volume)on 06-19-2021 RBC (Bld) [#/Vol] 4.54 10*6/uL 4.6-6.2 [facility] Work Phone: Blood hemoglobin measurement (mass/volume)on 06-19-2021 Hemoglobin (Bld) [Mass/Vol] 12.0 g/dL 13.0-16.5 [facility] Work Phone: Blood lymphocytes/100 leukoc yteson 06-19-2021 Lymphocytes/100 WBC (Bld) 17.3 % 19-41 [facility] Work Phone: Blood monocytes/100 leukocyt eson 06-19-2021 Monocytes/100 WBC (Bld) 9.6 % 0-10 [facility] Work Phone: Blood platelet mean volumeon 06-19-2021 Platelet mean volume (Bld) [Entitic vol] 9.7 fL 6.2-12.0 [facility] Work Phone: Determination of erythrocyte mean corpuscular volume (MCV)on 06-19-2021 MCV (RBC) [Entitic vol] 79.7 fL 80-94 [facility] Work Phone: Hematocrit Auto (Bld) [Volum e fraction]on 06-19-2021 Hematocrit (Bld) [Volume fraction] 36.2 % 40-54 [facility] Work Phone: Ketones Test strip Ql (U)on 06-19-2021 Ketones Ql (U) Negative Negative [facility] Work Phone: Laboratory - Chemistry and C hemistry - challengeon 06-19-2021 CO2 [Moles/Vol] 26.0 mmol/L 21.0-32.0 [facility] Work Phone: [phone] Natriuretic peptide B (Bld) [Mass/Vol] 155.0 pg/mL 0-100 [facility] Work Phone: [phone] Urea nitrogen/Creatinine [Mass ratio] 14.6 mg/mg 10-20 [facility] Work Phone: [phone] Laboratory - Hematology and Cell countson 06-19-2021 Erythrocyte distribution width (RBC) [Entitic vol] 43.1 fL 35.1-43.9 [facility] Work Phone: [phone] Erythrocyte distribution width (RBC) [Ratio] 15.0 % 11.6-14.6 [facility] Work Phone: [phone] Immature granulocytes/100 WBC (Bld) 0.500 % 0.0-0.9 [facility] Work Phone: [phone] Comment on above: IG% - Immature Granu locytes (promyelocytes, myelocytes and metamyelocytes) > 1% indicates that a LEFT SHIFT is Present. MCH (RBC) [Entitic mass] 26.4 pg 27.0-32.0 [facility] Work Phone: [phone] Nucleated RBC/100 WBC (Bld) [Ratio] 0 % 0-5 [facility] Work Phone: [phone] MCHC Auto (RBC) [Mass/Vol]on 06-19-2021 MCHC (RBC) [Mass/Vol] 33.1 g/dL 32-36 [facility] Work Phone: [phone] Mucus LM Ql (Urine sed)on Mucus Ql (Urine sed) 0 SEEN /hpf [facility] Work Phone: [phone] Nitrite Test strip Ql (U)on 06-19-2021 Nitrite Ql (U) Negative Negative [facility] Work Phone: [phone] Panel Informationon 06-19 Troponin I High Sensitivity 31 pg/mL 3.0-78.0 [facility] Work Phone: [phone] Comment on above: Please Note: New Karly t Units and Gender Specific Reference Ranges. For more information see Policy Stat Procedure [place] High Sensitivity Troponin (TNIH) and attachments. Estimated Creatinine Clearance Calc 84.90 ml/min [facility] Work Phone: Estimated GFR (MDRD) Amer 104 mL/min >60 [facility] Work Phone: Comment on above: GFR Calc Estimated GFR (MDRD) Non-Af Amer 86 mL/min >60 [facility] Work Phone: [phone] Comment on above: Non- GFR Calc Platelets bldon 06-19-2021 Platelets (Bld) [#/Vol] 216 10*3/uL 150-450 [facility] Work Phone: [phone] Protein Test strip Ql (U)on 06-19-2021 Protein Ql (U) 30 mg/dl Negative [facility] Work Phone: [phone] Serum or plasma calcium grazyna urement (mass/volume)on 06-19-2021 Calcium [Mass/Vol] 8.8 mg/dL 8.5-10.1 [facility] [place] Work Phone: [phone] Serum or plasma creatinine m easurement (mass/volume)on 06-19-2021 Creatinine [Mass/Vol] 0.96 mg/dL 0.70-1.30 [facility] Work Phone: Comment on above: The validity of the calculated GFR & GFRAA in patients over 70 years has not been determined. Clinical correlation is essential. Serum or plasma urea nitroge n measurement (mass/volume)on 06-19-2021 Urea nitrogen [Mass/Vol] 14 mg/dL 7-18 [facility] Work Phone: [phone] Squamous epithelial cells de tection in urine sediment by light microscopyon 06-19-2021 Epithelial cells.squamous LM Ql (Urine sed) 0 SEEN /hpf 0-5 [facility] Work Phone: [phone] Thin prep Papanicolaou smear with manual screeningon 06-19-2021 Thin prep Papanicolaou smear with manual screening 7 5-15 [facility] Work Phone: [phone] Urine blood detectionon 05-31 RBC Ql (U) Negative Negative [facility] Work Phone: RBC Ql (U) 0 SEEN /hpf 0-5 [facility] Work Phone: Urine clarityon 06-19-2021 Clarity (U) Clear Clear [facility] Work Phone: Urine color determinationon 06-19-2021 Color (U) Yellow Yellow [facility] Work Phone: Urine glucose detectionon Glucose Ql (U) Normal mg/dl Normal [facility] Work Phone: Urine leukocyte esterase det ection by dipstickon 06-19-2021 Leukocyte esterase Test strip Ql (U) Negative Negative [facility] Work Phone: Urine pHon 06-19-2021 pH (U) 6.0 [pH] 5.0 - 8.0 [facility] Work Phone: Urine sediment bacteria coun t by microscopy (number/high power field)on 06-19-2021 Bacteria LM.HPF (Urine sed) [#/Area] 0 /[HPF] None Seen [facility] Work Phone: Urine specific gravity measu rementon 06-19-2021 Specific gravity (U) [Rel density] 1.015 1.002-1.03 0 [facility] Work Phone: Urobilinogen Auto test strip Ql (U)on 06-19-2021 Urobilinogen Ql (U) Normal mg/dl Normal [facility] Work Phone: No Panel Informationon 06-02 Urine Microalbumin/Creatinine Ratio 40.2 mg/g CRE <30 [facility] Work Phone: Thin prep Papanicolaou smear with manual screeningon 06-02-2021 Thin prep Papanicolaou smear with manual screening 22.8 mg/L NO RANGE EST. [facility] Work Phone: Urine creatinine measurement (mass/volume)on 06-02-2021 Creatinine (U) [Mass/Vol] 56.70 mg/dL NO RANGE EST. [facility] Work Phone: Basophil percentageon 2021 Bilirubin [Mass/Vol] 0.40 mg/dL 0.20-1.00 [facility] Work Phone: Comment on above: For patients on eltr ombopag therapy, use of Dimension [place] TBIL is not recommended. Chloride [Moles/Vol] 102 mmol/L 98-107 [facility] Work Phone: Cholesterol [Mass/Vol] 189 mg/dL <200 [facility] Work Phone: Comment on above: <200 mg/dL Desirable 200-240 mg/dL Borderline >240 mg/dL High Risk Glucose [Mass/Vol] 285 mg/dL 74-106 [facility] [place] Work Phone: Comment on above: Glucose result great er than or equal to 200 mg/dLsuggests DIABETES MELLITUS per A.D.A. criteria. Potassium [Moles/Vol] 4.1 mmol/L 3.5-5.1 [facility] Work Phone: Protein [Mass/Vol] 8.1 g/dL 6.4-8.2 [facility] [place] Work Phone: Sodium [Moles/Vol] 133 mmol/L 136-145 [facility] [place] Work Phone: Triglyceride [Mass/Vol] 526 mg/dL <199 [facility] Work Phone: Comment on above: The drugs N-Acetylcy steine and Metamizole may falsely depress this assay. TRIGLYCERIDE IS GREATER THAN 400 mg/dL. LDL RESULT IS INVALID AND WILL NOT BE REPORTED.Serum Triglycerides Reference Interval Normal <150 mg/dL Borderline high 150 - 199 mg/dL High 200 - 499 mg/dL Very High > or = 500 mg/dL Laboratory - Chemistry and C hemistry - challengeon 06-01-2021 ALP [Catalytic activity/Vol] 96 U/L 45-117 [facility] Work Phone: ALT [Catalytic activity/Vol] 31 U/L 16-61 [facility] Work Phone: [phone] CO2 [Moles/Vol] 24.0 mmol/L 21.0-32.0 [facility] Work Phone: [phone] Globulin (S) [Mass/Vol] 4.6 g/dL 2.2-4.2 [facility] Work Phone: Urea nitrogen/Creatinine [Mass ratio] 22.3 mg/mg 10-20 [facility] Work Phone: [phone] Laboratory - Hematology and Cell countson 06-01-2021 HbA1c (Bld) [Mass fraction] 9.3 % [facility] Work Phone: No Panel Informationon 06-01 Estimated GFR (MDRD) Amer 73 mL/min >60 [facility] Work Phone: Comment on above: GFR Calc Estimated GFR (MDRD) Non-Af Amer 60 mL/min >60 [facility] Work Phone: Comment on above: Non- GFR Calc Serum or plasma albumin grazyna urement (mass/volume)on 06-01-2021 Albumin [Mass/Vol] 3.5 g/dL 3.2-5.0 [facility] [place] Work Phone: Serum or plasma albumin/glob ulin mass ratioon 06-01-2021 Albumin/Globulin [Mass ratio] 0.8 {ratio} 0.9-2.4 [facility] Work Phone: [phone] Serum or plasma calcium grazyna urement (mass/volume)on 06-01-2021 Calcium [Mass/Vol] 9.1 mg/dL 8.5-10.1 [facility] [place] Work Phone: [phone] Serum or plasma cholesterol in HDL measurement (mass/volume)on 06-01-2021 Cholesterol in HDL [Mass/Vol] 33 mg/dL >40 [facility] Work Phone: Comment on above: The drugs N-Acetylcy steine and Metamizole may falsely depress this assay. Reference Range HDL <40 mg/dL Low HDL Cholesterol HDL >or= 60 mg/dL High HDL Cholesterol Serum or plasma cholesterol in VLDL measurement (mass/volume)on 06-01-2021 Cholesterol in VLDL [Mass/Vol] [facility] Work Phone: Comment on above: Test not performed Serum or plasma creatinine m easurement (mass/volume)on 06-01-2021 Creatinine [Mass/Vol] 1.30 mg/dL 0.70-1.30 [facility] Work Phone: Comment on above: The validity of the calculated GFR & GFRAA in patients over 70 years has not been determined. Clinical correlation is essential. Serum or plasma low density lipoprotein (LDL) cholesterol measurement (mass/volume)on 06-01-2021 Cholesterol in LDL [Mass/Vol] [facility] Work Phone: Comment on above: Test not performed Serum or plasma urea nitroge n measurement (mass/volume)on 06-01-2021 Urea nitrogen [Mass/Vol] 29 mg/dL 7-18 [facility] Work Phone: Thin prep Papanicolaou smear with manual screeningon 06-01-2021 Thin prep Papanicolaou smear with manual screening 24 U/L 15-37 [facility] Work Phone: Thin prep Papanicolaou smear with manual screening 7 5-15 [facility] Work Phone: Absolute lymphocyte counton 05-30-2021 Lymphocytes Auto (Unsp spec) [#/Vol] 1.58 10*3/uL 0.83-4.51 [facility] Work Phone: Basophil percentageon 2021 Basophils/100 WBC (Bld) 0.7 % 0-1 [facility] Work Phone: Eosinophils/100 WBC (Bld) 2.4 % 0-5 [facility] Work Phone: Neutrophils (Bld) [#/Vol] 4.4 10*3/uL 2.0-7.7 [facility] Work Phone: Neutrophils/100 WBC (Bld) 64.8 % 47-70 [facility] Work Phone: WBC (Bld) [#/Vol] 6.7 10*3/uL 4.4-11.0 [facility] [place] Work Phone: Blood erythrocytes count (nu mber/volume)on 05-30-2021 RBC (Bld) [#/Vol] 4.54 10*6/uL 4.6-6.2 [facility] Work [facility]: Blood hemoglobin measurement (mass/volume)on 05-30-2021 Hemoglobin (Bld) [Mass/Vol] 11.9 g/dL 13.0-16.5 [facility] Work Phone: Blood lymphocytes/100 leukoc yteson 05-30-2021 Lymphocytes/100 WBC (Bld) 23.4 % 19-41 [facility] Work Phone: [phone] Blood monocytes/100 leukocyt eson 05-30-2021 Monocytes/100 WBC (Bld) 8.6 % 0-10 [facility] Work Phone: Blood platelet mean volumeon 05-30-2021 Platelet mean volume (Bld) [Entitic vol] 10.7 fL 6.2-12.0 [facility] Work Phone: Determination of erythrocyte mean corpuscular volume (MCV)on 05-30-2021 MCV (RBC) [Entitic vol] 81.3 fL 80-94 [facility] Work Phone: [phone] Hematocrit Auto (Bld) [Volum e fraction]on 05-30-2021 Hematocrit (Bld) [Volume fraction] 36.9 % 40-54 [facility] Work Phone: Laboratory - Hematology and Cell countson 05-30-2021 Erythrocyte distribution width (RBC) [Entitic vol] 46.5 fL 35.1-43.9 [facility] Work Phone: [phone] Erythrocyte distribution width (RBC) [Ratio] 15.6 % 11.6-14.6 [facility] Work Phone: Immature granulocytes/100 WBC (Bld) 0.100 % 0.0-0.9 [facility] Work Phone: Comment on above: IG% - Immature Granu locytes (promyelocytes, myelocytes and metamyelocytes) > 1% indicates that a LEFT SHIFT is Present. MCH (RBC) [Entitic mass] 26.2 pg 27.0-32.0 [facility] Work Phone: Nucleated RBC/100 WBC (Bld) [Ratio] 0 % 0-5 [facility] Work Phone: MCHC Auto (RBC) [Mass/Vol]on 05-30-2021 MCHC (RBC) [Mass/Vol] 32.2 g/dL 32-36 [facility] Work Phone: No Panel Informationon 05-30 Thyroid Stimulating Hormone (TSH) 1.24 uIU/mL 0.358-3.74 [facility] Work Phone: Platelets bldon 05-30-2021 Platelets (Bld) [#/Vol] 201 10*3/uL 150-450 [facility] Work Phone: Final Surgical Pathology Rep [facility] 08-11-2018 Final Surgical Pathology Report . Pathology Reports Accession: Collected Date/Time: Received Date/Time: Pathologist: [id number] 08/07/2018 14:48 EDT 08/08/2018 14:48 EDT URBAN BILLINGS MD Final Surgical Pathology Report DIAGNOSIS: A) TRANSVERSE COLON, POLYPECTOMY- TUBULAR ADENOMA. B) RIGHT COLON, POLYPECTOMY- TUBULOVILLOUS ADENOMA. CLINICAL INFORMATION: PERSONAL HISTORY OF COLONIC POLYPS SPECIMEN: A POLYP, COLORECT- TRANSVERSE X 3 B COLON, BX- RIGHT COLON GROSS DESCRIPTION: A. received in formalin labeled transverse polyp multiple atkins glistening soft tissues ranging from 0.2 to 0.6 cm. TS -1 B. Received in formalin labeled right colon polyp are multiple atkins glistening soft tissues ranging from 0.2 to 0.4 cm. TS -1 Dictated by Talita GRIFFITHS ([facility]) MICROSCOPIC DESCRIPTION: A-B Slides reviewed. Electronically Signed by Pathology Report verified by [facility] Electronically signed by URBAN BILLINGS Sign out Date: 08/11/2018 15:23 Performing Lab: [facility], [address] [place] [address] [facility] [place] Comment on above: Performed By: #### S PFR #### [facility] [address] [place], [place] [address] Otheron 12-28-2010 CONVERTED CLINICAL HISTORY OPERATIVE PROCEDURE: V arthroscopy, partial medial meniscectomy rt knee CLINICAL INFORMATION: Partial medial meniscal tear rt knee [facility] CONVERTED ELECTRONIC SIGNATURE OCHOA SPENCER M.D., PATHOLOGIST (Electronic signature on file) Final Signed Out: 12/28/2010 13:12 [facility] CONVERTED FINAL DIAGNOSIS FINAL DIAGNOSIS: RIGHT KNEE, INTRAARTICULAR SHAVINGS - FIBROCARTILAGE WITH DEGENERATIVE CHANGES. SPECIMEN: SHAVINGS, KNEE [facility] CONVERTED GROSS DESCRIPTION GROSS DESCRIPTION: Intra-articular shavings rt knee Container labeled shavings right knee. Received in a cloth sock are portions of yellow-white fibrocartilaginous tissue measuring 2 x 2 x 1 cm in aggregate. A medical center representative sample is submitted in a single cassette. SMS/lrs MICROSCOPIC DESCRIPTION: Slides reviewed. EDS/gpl [facility] CONVERTED ORDERING PROVIDER Ordering Provider: KARLOS AQUINO [facility] Vital Signs Date Time Vital Sign Value Performing Clinician Facility 09-24-2024 09:03-0400 Diastolic blood pressure 69 mm[Hg] Dick Nguyen MD Work Phone: [facility] 09-24-2024 09:03-0400 Systolic blood pressure 100 mm[Hg] Dick Nguyen MD Work Phone: [facility] 09-24-2024 08:55-0400 Body temperature 96.8 [degF] Dick Nguyen MD Work Phone: [facility] 09-24-2024 08:55-0400 Heart rate 57 /min Dick Nguyen MD Work Phone: [facility] 09-24-2024 08:55-0400 Respiratory rate 29 /min Dick Nguyen MD Work Phone: [facility] 09-24-2024 08:55-0400 SaO2% (BldA) [Mass fraction] 96 % Dick Nguyen MD Work Phone: [facility] 09-24-2024 06:54-0400 Body height 175.3 cm Dick Nguyen MD Work Phone: [facility] 09-24-2024 06:54-0400 Body mass index (BMI) [Ratio] 47.85 kg/m2 Dick Nguyen MD Work Phone: [facility] 09-24-2024 06:54-0400 Body weight 146.97 kg Dick Nguyen MD Work Phone: [facility] 09-16-2024 10:01-0400 Body height 175.[address] Radha Khan MD Work Phone: [facility] 09-16-2024 10:01-0400 Body mass index (BMI) [Ratio] 48.1 kg/m2 Dr. Radha Khan MD Work Phone: [facility] 09-16-2024 10:01-0400 Body weight 147.[address] Radha Khan MD Work Phone: [facility] 09-16-2024 10:01-0400 Diastolic blood pressure 70 mm[Hg] Dr. Radha Khan MD Work Phone: [facility] 09-16-2024 10:01-0400 Heart rate 72 /min Dr. Radha Khan MD Work Phone: [facility] 09-16-2024 10:01-0400 SaO2% (BldA) [Mass fraction] 96 % Dr. Radha Khan MD Work Phone: [facility] 09-16-2024 10:01-0400 Systolic blood pressure 109 mm[Hg] Dr. Radha Khan MD Work Phone: [facility] 09-15-2024 12:59-0400 Body height 175.[address] Radha Khan MD Work Phone: [facility] 09-15-2024 12:59-0400 Body mass index (BMI) [Ratio] 47.8 kg/m2 Dr. Radha Khan MD Work Phone: [facility] 09-15-2024 12:59-0400 Body temperature 98.2 [degF] Dr. Radha Khan MD Work Phone: [facility] 09-15-2024 12:59-0400 Body weight 146.[address] Radha Khan MD Work Phone: [facility] 09-15-2024 12:59-0400 Diastolic blood pressure 59 mm[Hg] Dr. Radha Khan MD Work Phone: [facility] 09-15-2024 12:59-0400 Heart rate 82 /min Dr. Radha Khan MD Work Phone: [facility] 09-15-2024 12:59-0400 Inhaled oxygen flow rate 4 L/min Dr. Radha Khan MD Work Phone: [facility] 09-15-2024 12:59-0400 Respiratory rate 17 /min Dr. Radha Khan MD Work Phone: [facility] 09-15-2024 12:59-0400 SaO2% (BldA) [Mass fraction] 94 % Dr. Radha Khan MD Work Phone: [facility] 09-15-2024 12:59-0400 Systolic blood pressure 104 mm[Hg] Dr. Radha Khan MD Work Phone: [facility] 08-28-2024 11:58-0400 Body temperature 97.9 [degF] Rosalino Padron MD Work Phone: [facility] 08-28-2024 11:58-0400 Body weight 143.79 kg Rosalino Padron MD Work Phone: [facility] 08-28-2024 11:58-0400 Diastolic blood pressure 70 mm[Hg] Rosalino Padron MD Work Phone: [facility] 08-28-2024 11:58-0400 Heart rate 76 /min Rosalino Padron MD Work Phone: [facility] 08-28-2024 11:58-0400 SaO2% (BldA) [Mass fraction] 95 % Rosalino Padron MD Work Phone: [facility] Comment on above: 4L O2 08-28-2024 11:58-0400 Systolic blood pressure 125 mm[Hg] Rosalino Padron MD Work Phone: [facility] 08-17-2024 11:25-0400 Body height 175.[address] Radha Khan MD Work Phone: [facility] 08-17-2024 11:25-0400 Body mass index (BMI) [Ratio] 46 kg/m2 Dr. Radha Khan MD Work Phone: [facility] 08-17-2024 11:25-0400 Body temperature 98.2 [degF] Dr. Radha Khan MD Work Phone: [facility] 08-17-2024 11:25-0400 Body weight 141.[address] Radha Khan MD Work Phone: [facility] 08-17-2024 11:25-0400 Diastolic blood pressure 70 mm[Hg] Dr. Radha Khan MD Work Phone: [facility] 08-17-2024 11:25-0400 Heart rate 74 /min Dr. Radha Khan MD Work Phone: [facility] 08-17-2024 11:25-0400 Inhaled oxygen flow rate 4 L/min Dr. Radha Khan MD Work Phone: [facility] 08-17-2024 11:25-0400 Respiratory rate 16 /min Dr. Radha Khan MD Work Phone: [facility] 08-17-2024 11:25-0400 SaO2% (BldA) [Mass fraction] 96 % Dr. Radha Khan MD Work Phone: [facility] 08-17-2024 11:25-0400 Systolic blood pressure 119 mm[Hg] Dr. Radha Khan MD Work Phone: [facility] 08-07-2024 14:09-0400 Body temperature 98.01 [degF] Rosalino Padron MD Work Phone: [facility] 08-07-2024 14:09-0400 Body weight 141.98 kg Rosalino Padron MD Work Phone: [facility] 08-07-2024 14:09-0400 Diastolic blood pressure 58 mm[Hg] Rosalino Padron MD Work Phone: [facility] 08-07-2024 14:09-0400 Heart rate 81 /min Rosalino Padron MD Work Phone: [facility] 08-07-2024 14:09-0400 SaO2% (BldA) [Mass fraction] 98 % Rosalino Padron MD Work Phone: [facility] 08-07-2024 14:09-0400 Systolic blood pressure 92 mm[Hg] Rosalino Padron MD Work Phone: [facility] 08-06-2024 14:41-0400 Body temperature 98.2 [degF] Dr. Radha Khan MD Work Phone: [facility] 08-06-2024 14:41-0400 Body weight 142.[address] Radha Khan MD Work Phone: [facility] 08-06-2024 14:41-0400 Diastolic blood pressure 69 mm[Hg] Dr. Radha Khan MD Work Phone: [facility] 08-06-2024 14:41-0400 Heart rate 80 /min Dr. Radha Khan MD Work Phone: [facility] 08-06-2024 14:41-0400 Inhaled oxygen flow rate 8 L/min Dr. Radha Khan MD Work Phone: [facility] 08-06-2024 14:41-0400 Respiratory rate 17 /min Dr. Radha Khan MD Work Phone: [facility] 08-06-2024 14:41-0400 SaO2% (BldA) [Mass fraction] 94 % Dr. Radha Khan MD Work Phone: [phone] [place] [address] 08-06-2024 14:41-0400 Systolic blood pressure 99 mm[Hg] Dr. Radha Khan MD Work Phone: 0(668)768-827917 [place] [address] 07-06-2024 13:44-0400 Body temperature 98.2 [degF] Dr. Radha Khan MD Work Phone: 2(361)143-606517 [place] [address] 07-06-2024 13:44-0400 Body weight 139.[address] Radha Khan MD Work Phone: 4(129)841-393295 [address] 07-06-2024 13:44-0400 Diastolic blood pressure 68 mm[Hg] Dr. Radha Khan MD Work Phone: 7(814)847-693795 [address] 07-06-2024 13:44-0400 Heart rate 91 /min Dr. Radha Khan MD Work Phone: 5(844)076-861607 [place] [address] 07-06-2024 13:44-0400 Inhaled oxygen flow rate 4 L/min Dr. Radha Khan MD Work Phone: 3(043)122-657807 [place] [address] 07-06-2024 13:44-0400 Respiratory rate 17 /min Dr. Radha Khan MD Work Phone: 2(558)375-671607 [place] [address] 07-06-2024 13:44-0400 SaO2% (BldA) [Mass fraction] 97 % Dr. Radha Khan MD Work Phone: 0(679)361-709607 [place] [address] 07-06-2024 13:44-0400 Systolic blood pressure 110 mm[Hg] Dr. Radha Khan MD Work Phone: 9(980)635-002195 [address] 06-26-2024 11:10-0400 Body temperature 97.59 [degF] Rosalino Padron MD Work Phone: [facility] 06-26-2024 11:10-0400 Body weight 141.07 kg Rosalino Padron MD Work Phone: [facility] 06-26-2024 11:10-0400 Diastolic blood pressure 78 mm[Hg] Rosalino Padron MD Work Phone: [facility] 06-26-2024 11:10-0400 Heart rate 76 /min Rosalino Padron MD Work Phone: [facility] 06-26-2024 11:10-0400 SaO2% (BldA) [Mass fraction] 98 % Rosalino Padron MD Work Phone: [facility] Comment on above: pt on 4L O2 06-26-2024 11:10-0400 Systolic blood pressure 157 mm[Hg] Rosalino Padron MD Work Phone: [facility] 06-10-2024 08:19-0400 Body mass index (BMI) [Ratio] 45.3 kg/m2 Dr. Radha Khan MD Work Phone: [facility] 06-10-2024 08:19-0400 Body temperature 97.2 [degF] Dr. Radha Khan MD Work Phone: [facility] 06-10-2024 08:19-0400 Body weight 139.[address] Radha Khan MD Work Phone: [facility] 06-10-2024 08:19-0400 Diastolic blood pressure 76 mm[Hg] Dr. Radha Khan MD Work Phone: [facility] 06-10-2024 08:19-0400 Heart rate 59 /min Dr. Radha Khan MD Work Phone: [facility] 06-10-2024 08:19-0400 Inhaled oxygen flow rate 4 L/min Dr. Radha Khan MD Work Phone: [facility] 06-10-2024 08:19-0400 Respiratory rate 20 /min Dr. Radha Khan MD Work Phone: [facility] 06-10-2024 08:19-0400 SaO2% (BldA) [Mass fraction] 99 % Dr. Radha Khan MD Work Phone: [facility] 06-10-2024 08:19-0400 Systolic blood pressure 115 mm[Hg] Dr. Radha Khan MD Work Phone: [facility] 06-04-2024 13:50-0500 Body height 175.[address] Radha Khan MD Work Phone: 1(412)069-442107 [place] [address] 06-04-2024 13:50-0500 Body mass index (BMI) [Ratio] 45.1 kg/m2 Dr. Radha Khan MD Work Phone: [facility] 06-04-2024 13:50-0500 Body temperature 97.8 [degF] Dr. Radha Khan MD Work Phone: [facility] 06-04-2024 13:50-0500 Body weight 138.[address] Radha Khan MD Work Phone: [facility] 06-04-2024 13:50-0500 Diastolic blood pressure 61 mm[Hg] Dr. Radha Khan MD Work Phone: [facility] 06-04-2024 13:50-0500 Heart rate 59 /min Dr. Radha Khan MD Work Phone: [facility] 06-04-2024 13:50-0500 Inhaled oxygen flow rate 4 L/min Dr. Radha Khan MD Work Phone: [facility] 06-04-2024 13:50-0500 Respiratory rate 17 /min Dr. Radha Khan MD Work Phone: [facility] 06-04-2024 13:50-0500 SaO2% (BldA) [Mass fraction] 92 % Dr. Radha Khan MD Work Phone: [facility] 06-04-2024 13:50-0500 Systolic blood pressure 141 mm[Hg] Dr. Radha Khan MD Work Phone: [facility] 05-21-2024 10:44-0500 Body mass index (BMI) [Ratio] 43.7 kg/m2 Dr. Radha Khan MD Work Phone: [facility] 05-21-2024 10:44-0500 Body weight 134.[address] Radha Khan MD Work Phone: [facility] 05-21-2024 10:44-0500 Diastolic blood pressure 69 mm[Hg] Dr. Radha Khan MD Work Phone: [facility] 05-21-2024 10:44-0500 Heart rate 75 /min Dr. Radha Khan MD Work Phone: [facility] 05-21-2024 10:44-0500 Inhaled oxygen flow rate 4 L/min Dr. Radha Khan MD Work Phone: [facility] 05-21-2024 10:44-0500 Respiratory rate 18 /min Dr. Radha Khan MD Work Phone: [facility] 05-21-2024 10:44-0500 SaO2% (BldA) [Mass fraction] 100 % Dr. Radha Khan MD Work Phone: [facility] 05-21-2024 10:44-0500 Systolic blood pressure 105 mm[Hg] Dr. Radha Khan MD Work Phone: [facility] 05-06-2024 08:35-0500 Body temperature 96.69 [degF] Mey Loya STAFF [employer] DEFENSE OFFICER - LEGISLATIVE CORRESPONDENT Work Phone: [facility] 05-06-2024 08:35-0500 Diastolic blood pressure 63 mm[Hg] Mey Loya STAFF AIR DEFENSE OFFICER - LEGISLATIVE CORRESPONDENT Work Phone: [facility] 05-06-2024 08:35-0500 Heart rate 72 /min Mey Loya STAFF AIR DEFENSE OFFICER - LEGISLATIVE CORRESPONDENT Work Phone: [facility] 05-06-2024 08:35-0500 Respiratory rate 20 /min Mey Loya STAFF AIR DEFENSE OFFICER - LEGISLATIVE CORRESPONDENT Work Phone: [facility] 05-06-2024 08:35-0500 SaO2% (BldA) [Mass fraction] 95 % Mey Loya STAFF [employer] DEFENSE OFFICER - LEGISLATIVE CORRESPONDENT Work Phone: [facility] 05-06-2024 08:35-0500 Systolic blood pressure 112 mm[Hg] Mey Loya STAFF AIR DEFENSE OFFICER - LEGISLATIVE CORRESPONDENT Work Phone: [facility] 05-05-2024 13:14-0500 Body temperature 98 [degF] Dr. Radha Khan MD Work Phone: [facility] 05-05-2024 13:14-0500 Diastolic blood pressure 63 mm[Hg] Dr. Radha Khan MD Work Phone: [facility] 05-05-2024 13:14-0500 Heart rate 66 /min Dr. Radha Khan MD Work Phone: [facility] 05-05-2024 13:14-0500 Respiratory rate 18 /min Dr. Radha Khan MD Work Phone: [facility] 05-05-2024 13:14-0500 SaO2% (BldA) [Mass fraction] 100 % Dr. Radha Khan MD Work Phone: [facility] 05-05-2024 13:14-0500 Systolic blood pressure 101 mm[Hg] Dr. Radha Khan MD Work Phone: [facility] 05-01-2024 12:31-0500 Body mass index (BMI) [Ratio] 44.4 kg/m2 Dr. Radha Khan MD Work Phone: [facility] 05-01-2024 12:31-0500 Body temperature 98.3 [degF] Dr. Radha Khan MD Work Phone: [facility] 05-01-2024 12:31-0500 Body weight 136.[address] Radha Khan MD Work Phone: 2(006)440-000917 [place] [address] 05-01-2024 12:31-0500 Diastolic blood pressure 60 mm[Hg] Dr. Radha Khan MD Work Phone: 0(010)814-138507 [place] [address] 05-01-2024 12:31-0500 Heart rate 70 /min Dr. Radha Khan MD Work Phone: 9(305)117-137917 [place] [address] 05-01-2024 12:31-0500 Inhaled oxygen flow rate 4 L/min Dr. Radha Khan MD Work Phone: 1(715)117-866117 [place] [address] 05-01-2024 12:31-0500 Respiratory rate 18 /min Dr. Radha Khan MD Work Phone: 4(558)557-695917 [place] [address] 05-01-2024 12:31-0500 SaO2% (BldA) [Mass fraction] 100 % Dr. Radha Khan MD Work Phone: 1(975)531-125707 [place] [address] 05-01-2024 12:31-0500 Systolic blood pressure 97 mm[Hg] Dr. Radha Khan MD Work Phone: 0(034)719-217517 [place] [address] 04-30-2024 14:32-0500 Body temperature 97.4 [degF] Dr. Radha Khan MD Work Phone: 9(779)394-812217 [place] [address] 04-30-2024 14:32-0500 Body weight 138.[address] Radha Khan MD Work Phone: 7(858)280-625807 [place] [address] 04-30-2024 14:32-0500 Diastolic blood pressure 58 mm[Hg] Dr. Radha Kahn MD Work Phone: 6(922)514-386717 [place] [address] 04-30-2024 14:32-0500 Heart rate 73 /min Dr. Radha Khan MD Work Phone: 3(660)866-178095 [address] 04-30-2024 14:32-0500 Inhaled oxygen flow rate 4 L/min Dr. Radha Khan MD Work Phone: 8(946)355-104395 [address] 04-30-2024 14:32-0500 Respiratory rate 18 /min Dr. Radha Khan MD Work Phone: 7(699)093-293817 [place] [address] 04-30-2024 14:32-0500 SaO2% (BldA) [Mass fraction] 94 % Dr. Radha Khan MD Work Phone: 4(625)307-077017 [place] [address] 04-30-2024 14:32-0500 Systolic blood pressure 111 mm[Hg] Dr. Radha Khan MD Work Phone: 6(370)868-058117 [place] [address] 04-30-2024 13:26-0500 Body mass index (BMI) [Ratio] 44.7 kg/m2 Dr. Radha Khan MD Work Phone: 5(116)117-579517 [place] [address] 04-30-2024 13:26-0500 Body weight 137.[address] Radha Khan MD Work Phone: 0(313)795-865817 [place] [address] 04-30-2024 13:26-0500 Diastolic blood pressure 55 mm[Hg] Dr. Radha Khan MD Work Phone: 5(811)866-363317 [place] [address] 04-30-2024 13:26-0500 Heart rate 69 /min Dr. Radha Khan MD Work Phone: 7(511)152-253317 [place] [address] 04-30-2024 13:26-0500 Respiratory rate 18 /min Dr. Radha Khan MD Work Phone: 9(242)970-091117 [place] [address] 04-30-2024 13:26-0500 Systolic blood pressure 97 mm[Hg] Dr. Radha Khan MD Work Phone: 8(343)029-309017 [place] [address] 04-30-2024 11:30-0500 Body mass index (BMI) [Ratio] 44.7 kg/m2 Dr. Radha Khan MD Work Phone: 3(477)207-746717 [place] [address] 04-30-2024 11:30-0500 Body temperature 98.2 [degF] Dr. Radha Khan MD Work Phone: 7(616)183-807017 [place] [address] 04-30-2024 11:30-0500 Body weight 137.[address] Radha Khan MD Work Phone: [facility] 04-30-2024 11:30-0500 Diastolic blood pressure 74 mm[Hg] Dr. Radha Khan MD Work Phone: [facility] 04-30-2024 11:30-0500 Heart rate 80 /min Dr. Radha Khan MD Work Phone: [facility] 04-30-2024 11:30-0500 Inhaled oxygen flow rate 4 L/min Dr. Radha Khan MD Work Phone: [facility] 04-30-2024 11:30-0500 Respiratory rate 17 /min Dr. Radha Khan MD Work Phone: [facility] 04-30-2024 11:30-0500 SaO2% (BldA) [Mass fraction] 95 % Dr. Radha Khan MD Work Phone: [facility] 04-30-2024 11:30-0500 Systolic blood pressure 120 mm[Hg] Dr. Radha Khan MD Work Phone: [facility] 04-27-2024 14:43-0500 Body height 175.3 cm Suzy Jauregui MD Work Phone: [facility] 04-27-2024 14:43-0500 Body mass index (BMI) [Ratio] 46.07 kg/m2 Suzy Jauregui MD Work Phone: [facility] 04-27-2024 14:43-0500 Body weight 141.52 kg Suzy Jauregui MD Work Phone: [facility] 04-27-2024 14:43-0500 Diastolic blood pressure 60 mm[Hg] Suzy Jauregui MD Work Phone: [facility] 04-27-2024 14:43-0500 Heart rate 75 /min Suzy Jauregui MD Work Phone: [facility] 04-27-2024 14:43-0500 Respiratory rate 18 /min Suzy Jauregui MD Work Phone: [facility] 04-27-2024 14:43-0500 SaO2% (BldA) [Mass fraction] 95 % Suzy Jauregui MD Work Phone: [facility] 04-27-2024 14:43-0500 Systolic blood pressure 122 mm[Hg] Suzy Jauregui MD Work Phone: [facility] 04-25-2024 16:19-0500 Body mass index (BMI) [Ratio] 44.6 kg/m2 Dr. Radha Khan MD Work Phone: [facility] 04-25-2024 14:00-0500 Body temperature 98.5 [degF] Dr. Radha Khan MD Work Phone: [facility] 04-25-2024 14:00-0500 Diastolic blood pressure 54 mm[Hg] Dr. Radha Khan MD Work Phone: [facility] 04-25-2024 14:00-0500 Heart rate 93 /min Dr. Radha Khan MD Work Phone: [facility] 04-25-2024 14:00-0500 Inhaled oxygen flow rate 3.5 L/min Dr. Radha Khan MD Work Phone: [facility] 04-25-2024 14:00-0500 Respiratory rate 16 /min Dr. Radha Khan MD Work Phone: [facility] 04-25-2024 14:00-0500 SaO2% (BldA) [Mass fraction] 100 % Dr. Radha Khan MD Work Phone: [facility] 04-25-2024 14:00-0500 Systolic blood pressure 113 mm[Hg] Dr. Radha Khan MD Work Phone: [facility] 04-25-2024 09:20-0500 Body weight 137.[address] Radha Khan MD Work Phone: [facility] 04-22-2024 09:35-0500 Body mass index (BMI) [Ratio] 45.6 kg/m2 Dr. Radha Khan MD Work Phone: [facility] 04-22-2024 09:35-0500 Body temperature 97.3 [degF] Dr. Radha Khan MD Work Phone: [facility] 04-22-2024 09:35-0500 Body weight 140.[address] Radha Khan MD Work Phone: 9(657)513-894395 [address] 04-22-2024 09:35-0500 Diastolic blood pressure 76 mm[Hg] Dr. Radha Khan MD Work Phone: 8(159)516-812707 [place] [address] 04-22-2024 09:35-0500 Heart rate 67 /min Dr. Radha Khan MD Work Phone: 0(122)054-126417 [place] [address] 04-22-2024 09:35-0500 Inhaled oxygen flow rate 4 L/min Dr. Radha Khan MD Work Phone: 1(704)074-555917 [place] [address] 04-22-2024 09:35-0500 Respiratory rate 20 /min Dr. Radha Khan MD Work Phone: [facility] 04-22-2024 09:35-0500 SaO2% (BldA) [Mass fraction] 99 % Dr. Radha Khan MD Work Phone: 0(305)788-280295 [address] 04-22-2024 09:35-0500 Systolic blood pressure 143 mm[Hg] Dr. Radha Khan MD Work Phone: 3(132)443-026507 [place] [address] 04-16-2024 09:22-0500 Body mass index (BMI) [Ratio] 44.9 kg/m2 Dr. Radha Khan MD Work Phone: [facility] 04-16-2024 09:22-0500 Body weight 138.[address] Radha Khan MD Work Phone: 0(557)870-387895 [address] 04-16-2024 09:22-0500 Diastolic blood pressure 56 mm[Hg] Dr. Radha Khan MD Work Phone: 9(265)785-777707 [place] [address] 04-16-2024 09:22-0500 Heart rate 79 /min Dr. Radha Khan MD Work Phone: [facility] 04-16-2024 09:22-0500 Inhaled oxygen flow rate 4 L/min Dr. Radha Khan MD Work Phone: 7(688)142-705807 [place] [address] 04-16-2024 09:22-0500 SaO2% (BldA) [Mass fraction] 78 % Dr. Radha Khan MD Work Phone: 5(287)835-446617 [place] [address] 04-16-2024 09:22-0500 Systolic blood pressure 105 mm[Hg] Dr. Radha Khan MD Work Phone: 3(036)404-031317 [place] [address] 04-15-2024 16:08-0500 Inhaled oxygen flow rate 4 L/min Dr. Radha Khan MD Work Phone: 1(764)570-031317 [place] [address] 04-15-2024 14:26-0500 Body temperature 97.9 [degF] Dr. Radha Khan MD Work Phone: 7(713)738-181317 [place] [address] 04-15-2024 14:26-0500 Diastolic blood pressure 66 mm[Hg] Dr. Radha Khan MD Work Phone: 1(003)929-230417 [place] [address] 04-15-2024 14:26-0500 Heart rate 79 /min Dr. Radha Khan MD Work Phone: 9(285)399-293417 [place] [address] 04-15-2024 14:26-0500 Respiratory rate 16 /min Dr. Radha Khan MD Work Phone: 9(230)778-276117 [place] [address] 04-15-2024 14:26-0500 SaO2% (BldA) [Mass fraction] 94 % Dr. Radha Khan MD Work Phone: 1(605)168-957017 [place] [address] 04-15-2024 14:26-0500 Systolic blood pressure 102 mm[Hg] Dr. Radha Khan MD Work Phone: 1(972)810-901717 [place] [address] 04-15-2024 03:24-0500 Body mass index (BMI) [Ratio] 44.5 kg/m2 Dr. Radha Khan MD Work Phone: 6(805)146-138517 [place] [address] 04-15-2024 03:24-0500 Body weight 136.[address] Radha Khan MD Work Phone: [facility] 04-13-2024 20:00-0500 Inhaled oxygen concentration 91 % Dr. Radha Khan MD Work Phone: [facility] 01-06-2024 10:49-0400 Body height 175.3 cm Oziel Culp MD Work Phone: [id number] 01-06-2024 10:49-0400 Body mass index (BMI) [Ratio] 46.07 kg/m2 Oziel Culp MD Work Phone: [id number] 01-06-2024 10:49-0400 Body weight 141.52 kg Oziel Culp MD Work Phone: [id number] 01-06-2024 10:49-0400 Diastolic blood pressure 72 mm[Hg] Oziel Culp MD Work Phone: [id number] 01-06-2024 10:49-0400 Heart rate 72 /min Oziel Culp MD Work Phone: [id number] 01-06-2024 10:49-0400 Systolic blood pressure 110 mm[Hg] Oziel Culp MD Work Phone: [id number] 10-05-2023 13:16-0400 Body temperature 97.39 [degF] Joe Rocha MD Work Phone: [id number] 10-05-2023 13:16-0400 Diastolic blood pressure 70 mm[Hg] Joe Rocha MD Work Phone: [id number] 10-05-2023 13:16-0400 Heart rate 83 /min Joe Rocha MD Work Phone: [id number] 10-05-2023 13:16-0400 Respiratory rate 20 /min Joe Rocha MD Work Phone: [id number] 10-05-2023 13:16-0400 SaO2% (BldA) [Mass fraction] 95 % Joe Rocha MD Work Phone: [facility] 10-05-2023 13:16-0400 Systolic blood pressure 107 mm[Hg] Joe Rocha MD Work Phone: [facility] 10-03-2023 15:30-0400 Body temperature 98.06 [degF] CHITO MEDLEY-GABRIELA STAFF [employer] DEFENSE OFFICER-LEGISLATIVE CORRESPONDENT [facility] 10-03-2023 15:30-0400 Diastolic Blood Pressure Non-Invasive 73 mm[Hg] CHITO MEDLEY-GABRIELA STAFF AIR DEFENSE OFFICER-LEGISLATIVE CORRESPONDENT [facility] 10-03-2023 15:30-0400 Heart rate 82 /min CHITO MEDLEY-GABRIELA STAFF AIR DEFENSE OFFICER-LEGISLATIVE CORRESPONDENT [facility] 10-03-2023 15:30-0400 Reason For Taking VItal Signs CHITO GALINDOFedericoGABRIELA STAFF AIR DEFENSE OFFICER-LEGISLATIVE CORRESPONDENT [facility] 10-03-2023 15:30-0400 Respiratory rate 18 /min CHITO MEDLEY-GABRIELA STAFF AIR DEFENSE OFFICER-LEGISLATIVE CORRESPONDENT [facility] 10-03-2023 15:30-0400 Systolic Blood Pressure Non-Invasive 109 mm[Hg] CHITO MEDLEY-GABRIELA STAFF AIR DEFENSE OFFICER-LEGISLATIVE CORRESPONDENT [facility] 10-03-2023 13:12-0400 Reason For Taking VItal Signs CHITO BAIGYFedericoGABRIELA STAFF AIR DEFENSE OFFICER-LEGISLATIVE CORRESPONDENT [facility] 10-03-2023 11:39-0400 Body temperature 98.24 [degF] CHITO JAY-GABRIELA STAFF AIR DEFENSE OFFICER-LEGISLATIVE CORRESPONDENT [facility] 10-03-2023 11:39-0400 Diastolic Blood Pressure Non-Invasive 66 mm[Hg] CHITO GALINDO-GABRIELA STAFF AIR DEFENSE OFFICER-LEGISLATIVE CORRESPONDENT [facility] 10-03-2023 11:39-0400 Heart rate 80 /min CHITO AMBROSEGABRIELA STAFF AIR DEFENSE OFFICER-LEGISLATIVE CORRESPONDENT [facility] 10-03-2023 11:39-0400 Reason For Taking VItal Signs CHITO FREEDMANLEY STAFF AIR DEFENSE OFFICER-LEGISLATIVE CORRESPONDENT [facility] 10-03-2023 11:39-0400 Respiratory rate 18 /min CHITO AMBROSEGABRIELA STAFF AIR DEFENSE OFFICER-LEGISLATIVE CORRESPONDENT [facility] 10-03-2023 11:39-0400 Systolic Blood Pressure Non-Invasive 112 mm[Hg] CHITO BAIGY-GABRIELA STAFF AIR DEFENSE OFFICER-LEGISLATIVE CORRESPONDENT [facility] 10-03-2023 08:27-0400 Heart rate 79 /min CHITO GALINDO-GABRIELA STAFF AIR DEFENSE OFFICER-LEGISLATIVE CORRESPONDENT [facility] 10-03-2023 06:05-0400 Body temperature 97.88 [degF] CHITO MEDLEY-GABRIELA STAFF AIR DEFENSE OFFICER-LEGISLATIVE CORRESPONDENT [facility] 10-03-2023 06:05-0400 Diastolic Blood Pressure Non-Invasive 76 mm[Hg] CHITO GALINDOFedericoGABRIELA STAFF AIR DEFENSE OFFICER-LEGISLATIVE CORRESPONDENT [facility] 10-03-2023 06:05-0400 Heart rate 71 /min CHITO CHITRA STAFF AIR DEFENSE OFFICER-LEGISLATIVE CORRESPONDENT [facility] 10-03-2023 06:05-0400 Respiratory rate 18 /min CHITO MEDLEY-GABRIELA STAFF [employer] DEFENSE OFFICER-LEGISLATIVE CORRESPONDENT [facility] 10-03-2023 06:05-0400 Systolic Blood Pressure Non-Invasive 112 mm[Hg] CHITO GALINDO-GABRIELA STAFF AIR DEFENSE OFFICER-LEGISLATIVE CORRESPONDENT [facility] 10-02-2023 08:45-0400 Heart rate 76 /min CHITO MEDLEYFdeericoGABRIELA STAFF AIR DEFENSE OFFICER-LEGISLATIVE CORRESPONDENT [facility] 10-02-2023 03:49-0400 Heart rate 85 /min CHITO MEDLEY-GABRIELA STAFF AIR DEFENSE OFFICER-LEGISLATIVE CORRESPONDENT [facility] 10-02-2023 01:23-0400 Body height 175.3 cm CHITO BAIGYJDGABRIELA STAFF AIR DEFENSE OFFICER-LEGISLATIVE CORRESPONDENT [facility] 10-02-2023 01:23-0400 Body weight 144.7 kg 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 [facility] 10-02-2023 01:23-0400 Body weight 47.09 kg/m2 CHITO MEDLEY-GABRIELA STAFF AIR DEFENSE OFFICER-LEGISLATIVE CORRESPONDENT [facility] 10-02-2023 01:17-0400 Heart rate 71 /min 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 [facility] 10-02-2023 00:30-0400 Heart rate 82 /min 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 [facility] 07-17-2023 15:35-0400 Body temperature 98.2 [degF] Dr. Radha Khan Work Phone: [facility] 07-17-2023 15:35-0400 Body weight 146.[address] Radha Khan Work Phone: [facility] 07-17-2023 15:35-0400 Diastolic blood pressure 67 mm[Hg] Dr. Radha Khan Work Phone: [facility] 07-17-2023 15:35-0400 Heart rate 80 /min Dr. Radha Khan Work Phone: [facility] 07-17-2023 15:35-0400 Respiratory rate 16 /min Dr. Radha Khan Work Phone: [facility] 07-17-2023 15:35-0400 SaO2% (BldA) [Mass fraction] 95 % Dr. Radha Khan Work Phone: [facility] 07-17-2023 15:35-0400 Systolic blood pressure 121 mm[Hg] Dr. Radha Khan Work Phone: [facility] 07-03-2023 11:02-0400 Body height 175.[address] Radha Khan Work Phone: [facility] 07-03-2023 11:02-0400 Body mass index (BMI) [Ratio] 48.1 kg/m2 Dr. Radha Khan Work Phone: [facility] 07-03-2023 11:02-0400 Body weight 147.[address] Radha Khan Work Phone: 3(841)345-099107 [place] [address] 07-03-2023 11:02-0400 Respiratory rate 16 /min Dr. Radha Khan Work Phone: [facility] 05-21-2023 14:43-0500 Body height 175.[address] Radha Khan Work Phone: [facility] 05-21-2023 14:43-0500 Body mass index (BMI) [Ratio] 48.1 kg/m2 Dr. Radha Khan Work Phone: [facility] 05-21-2023 14:43-0500 Body temperature 97.6 [degF] Dr. Radha Khan Work Phone: [facility] 05-21-2023 14:43-0500 Body weight 147.[address] Radha Khan Work Phone: [facility] 05-21-2023 14:43-0500 Diastolic blood pressure 81 mm[Hg] Dr. Radha Khan Work Phone: [facility] 05-21-2023 14:43-0500 Heart rate 83 /min Dr. Radha Khan Work Phone: [facility] 05-21-2023 14:43-0500 Respiratory rate 18 /min Dr. Radha Khan Work Phone: [facility] 05-21-2023 14:43-0500 SaO2% (BldA) [Mass fraction] 97 % Dr. Radha Khan Work Phone: [facility] 05-21-2023 14:43-0500 Systolic blood pressure 121 mm[Hg] Dr. Radha Khan Work Phone: [facility] 05-20-2023 13:21-0500 Body mass index (BMI) [Ratio] 48.3 kg/m2 Dr. Radha Khan Work Phone: [facility] 05-20-2023 13:21-0500 Body temperature 98.6 [degF] Dr. Radha Khan Work Phone: [facility] 05-20-2023 13:21-0500 Body weight 148.[address] Radha Khan Work Phone: [facility] 05-20-2023 13:21-0500 Diastolic blood pressure 68 mm[Hg] Dr. Radha Khan Work Phone: [facility] 05-20-2023 13:21-0500 Heart rate 76 /min Dr. Radha Khan Work Phone: [facility] 05-20-2023 13:21-0500 Respiratory rate 16 /min Dr. Radha Khan Work Phone: [facility] 05-20-2023 13:21-0500 SaO2% (BldA) [Mass fraction] 98 % Dr. Radha Khan Work Phone: [facility] 05-20-2023 13:21-0500 Systolic blood pressure 102 mm[Hg] Dr. Radha Khan Work Phone: [facility] 03-12-2023 12:03-0500 Diastolic blood pressure 72 mm[Hg] Dr. Radha Khan Work Phone: [facility] 03-12-2023 12:03-0500 Heart rate 101 /min Dr. Radha Khan Work Phone: [facility] 03-12-2023 12:03-0500 Systolic blood pressure 96 mm[Hg] Dr. Radha Khan Work Phone: [facility] 03-12-2023 08:59-0500 Body height 175.[address] Radha Khan Work Phone: [facility] 03-12-2023 08:59-0500 Body mass index (BMI) [Ratio] 47.1 kg/m2 Dr. Radha hKan Work Phone: [facility] 03-12-2023 08:59-0500 Body temperature 97.7 [degF] Dr. Radha Khan Work Phone: [facility] 03-12-2023 08:59-0500 Body weight 144.[address] Radha Khan Work Phone: [facility] 03-12-2023 08:59-0500 Respiratory rate 17 /min Dr. Radha Khan Work Phone: [facility] 03-12-2023 08:59-0500 SaO2% (BldA) [Mass fraction] 97 % Dr. Radha Khan Work Phone: [facility] 02-27-2023 10:43-0500 Body height 175.[address] Radha Khan Work Phone: [facility] 02-27-2023 10:43-0500 Body mass index (BMI) [Ratio] 46.9 kg/m2 Dr. Radha Khan Work Phone: [facility] 02-27-2023 10:43-0500 Body weight 144.[address] Radha Khan Work Phone: [facility] 02-27-2023 10:43-0500 Diastolic blood pressure 71 mm[Hg] Dr. Radha Khan Work Phone: [facility] 02-27-2023 10:43-0500 Heart rate 73 /min Dr. Radha Khan Work Phone: [facility] 02-27-2023 10:43-0500 Respiratory rate 20 /min Dr. Radha Khan Work Phone: [facility] 02-27-2023 10:43-0500 SaO2% (BldA) [Mass fraction] 100 % Dr. Radha Khan Work Phone: [facility] 02-27-2023 10:43-0500 Systolic blood pressure 103 mm[Hg] Dr. Radha Khan Work Phone: [facility] 02-18-2023 11:05-0500 Body temperature 97.8 [degF] Dr. Radha Khan Work Phone: [facility] 02-18-2023 11:05-0500 Diastolic blood pressure 63 mm[Hg] Dr. Radha Khan Work Phone: [facility] 02-18-2023 11:05-0500 Heart rate 69 /min Dr. Radha Khan Work Phone: [facility] 02-18-2023 11:05-0500 Respiratory rate 16 /min Dr. Radha Khan Work Phone: [facility] 02-18-2023 11:05-0500 SaO2% (BldA) [Mass fraction] 96 % Dr. Rdaha Khan Work Phone: [facility] 02-18-2023 11:05-0500 Systolic blood pressure 132 mm[Hg] Dr. Radha Khan Work Phone: [facility] 02-18-2023 09:54-0500 Body height 175.[address] Radha Khan Work Phone: [facility] 02-18-2023 09:54-0500 Body mass index (BMI) [Ratio] 47.5 kg/m2 Dr. Radha Khan Work Phone: [facility] 02-18-2023 09:54-0500 Body weight [address] Radha Khan Work Phone: [facility] 02-04-2023 13:15-0500 Body mass index (BMI) [Ratio] 48.2 kg/m2 Dr. Radha Khan Work Phone: 4(065)386-002707 [place] [address] 02-04-2023 13:15-0500 Body temperature 98 [degF] Dr. Radha Khan Work Phone: 9(710)235-733107 [place] [address] 02-04-2023 13:15-0500 Body weight 148.[address] Radha Khan Work Phone: 3(619)603-507095 [address] 02-04-2023 13:15-0500 Diastolic blood pressure 62 mm[Hg] Dr. Radha Khan Work Phone: 2(733)176-501707 [place] [address] 02-04-2023 13:15-0500 Heart rate 80 /min Dr. Radha Khan Work Phone: 0(284)530-126307 [place] [address] 02-04-2023 13:15-0500 Respiratory rate 18 /min Dr. Radha Khan Work Phone: 6(658)736-961095 [address] 02-04-2023 13:15-0500 SaO2% (BldA) [Mass fraction] 98 % Dr. Radha Khan Work Phone: 9(692)389-026207 [place] [address] 02-04-2023 13:15-0500 Systolic blood pressure 100 mm[Hg] Dr. Radha Khan Work Phone: [facility] 01-01-2023 [id number] Body height 175.[address] Radha Khan Work Phone: 2(571)992-472707 [place] [address] 01-01-2023 14:11-0400 Body mass index (BMI) [Ratio] 47.8 kg/m2 Dr. Radha Khan Work Phone: 7(192)921-321807 [place] [address] 01-01-2023 14:11-0400 Body temperature 97.3 [degF] Dr. Radha Khan Work Phone: 0(008)630-774207 [place] [address] 01-01-2023 14:11-0400 Body weight 146.[address] Radha Khan Work Phone: [facility] 01-01-2023 14:11-0400 Diastolic blood pressure 67 mm[Hg] Dr. Radha Khan Work Phone: 7(035)371-545607 [place] [address] 01-01-2023 14:11-0400 Heart rate 75 /min Dr. Radha Khan Work Phone: 6(210)796-126207 [place] [address] 01-01-2023 14:11-0400 Respiratory rate 17 /min Dr. Radha Khan Work Phone: 2(805)781-213395 [address] 01-01-2023 14:11-0400 SaO2% (BldA) [Mass fraction] 98 % Dr. Radha Khan Work Phone: 0(762)256-552207 [place] [address] 01-01-2023 14:11-0400 Systolic blood pressure 106 mm[Hg] Dr. Radha Khan Work Phone: 5(814)174-131795 [address] 12-10-2022 11:33-0400 Body mass index (BMI) [Ratio] 47.8 kg/m2 Dr. Radha Khan Work Phone: 9(438)823-422307 [place] [address] 12-10-2022 11:33-0400 Body temperature 98.3 [degF] Dr. Radha Khan Work Phone: 9(487)523-806007 [place] [address] 12-10-2022 11:33-0400 Body weight 146.[address] Radha Khan Work Phone: [facility] 12-10-2022 11:33-0400 Diastolic blood pressure 70 mm[Hg] Dr. Radha Khan Work Phone: 7(371)553-589507 [place] [address] 12-10-2022 11:33-0400 Heart rate 72 /min Dr. Radha Khan Work Phone: 1(520)691-915507 [place] [address] 12-10-2022 11:33-0400 Respiratory rate 16 /min Dr. Radha Khan Work Phone: [facility] 12-10-2022 11:33-0400 SaO2% (BldA) [Mass fraction] 96 % Dr. Radha Khan Work Phone: [facility] 12-10-2022 11:33-0400 Systolic blood pressure 118 mm[Hg] Dr. Radha Khan Work Phone: [facility] 10-08-2022 14:22-0400 Diastolic blood pressure 72 mm[Hg] Dr. Radha Khan Work Phone: [facility] 10-08-2022 14:22-0400 Systolic blood pressure 107 mm[Hg] Dr. Radha Khan Work Phone: [facility] 09-03-2022 13:57-0400 Body height 175.[address] Radha Khan Work Phone: [facility] 09-03-2022 13:57-0400 Body mass index (BMI) [Ratio] 47 kg/m2 Dr. Radha Khan Work Phone: [facility] 09-03-2022 13:57-0400 Body temperature 98.6 [degF] Dr. Radha Khan Work Phone: [facility] 09-03-2022 13:57-0400 Body weight 144.[address] Radha Khan Work Phone: [facility] 09-03-2022 13:57-0400 Diastolic blood pressure 56 mm[Hg] Dr. Radha Khan Work Phone: [facility] 09-03-2022 13:57-0400 Heart rate 62 /min Dr. Radah Khan Work Phone: [facility] 09-03-2022 13:57-0400 Respiratory rate 16 /min Dr. Radha Khan Work Phone: [facility] 09-03-2022 13:57-0400 SaO2% (BldA) [Mass fraction] 94 % Dr. Radha Khan Work Phone: [facility] 09-03-2022 13:57-0400 Systolic blood pressure 90 mm[Hg] Dr. Radha Khan Work Phone: [facility] 08-03-2022 15:30-0400 Body mass index (BMI) [Ratio] 45.4 kg/m2 Dr. Radha Khan Work Phone: [facility] 08-03-2022 15:20-0400 Body temperature 97.9 [degF] Dr. Radha Khan Work Phone: [facility] 08-03-2022 15:20-0400 Diastolic blood pressure 78 mm[Hg] Dr. Radha Khan Work Phone: [facility] 08-03-2022 15:20-0400 Heart rate 107 /min Dr. Radha Khan Work Phone: [facility] 08-03-2022 15:20-0400 Respiratory rate 16 /min Dr. Radha Khan Work Phone: [facility] 08-03-2022 15:20-0400 SaO2% (BldA) [Mass fraction] 97 % Dr. Radha Khan Work Phone: [facility] 08-03-2022 15:20-0400 Systolic blood pressure 144 mm[Hg] Dr. Radha Khan Work Phone: [facility] 08-03-2022 05:22-0400 Body mass index (BMI) [Ratio] 45.4 kg/m2 Dr. Radha Khan Work Phone: [facility] 08-03-2022 05:22-0400 Body weight 139.[address] Radha Khan Work Phone: [facility] 08-02-2022 10:53-0400 Body height 175.[address] Radha Khan Work Phone: [facility] 06-18-2022 14:14-0400 Body height 175.[address] Radha Khan Work Phone: [facility] 06-18-2022 14:14-0400 Body mass index (BMI) [Ratio] 45.8 kg/m2 Dr. Radha Khan Work Phone: [facility] 06-18-2022 14:14-0400 Body temperature 96.7 [degF] Dr. Radha Khan Work Phone: [facility] 06-18-2022 14:14-0400 Body weight 140.[address] Radha Khan Work Phone: [facility] 06-18-2022 14:14-0400 Diastolic blood pressure 70 mm[Hg] Dr. Radha Khna Work Phone: [facility] 06-18-2022 14:14-0400 Heart rate 81 /min Dr. Radha Khan Work Phone: [facility] 06-18-2022 14:14-0400 Respiratory rate 18 /min Dr. Radha Khan Work Phone: [facility] 06-18-2022 14:14-0400 SaO2% (BldA) [Mass fraction] 98 % Dr. Rdaha Khan Work Phone: [facility] 06-18-2022 14:14-0400 Systolic blood pressure 110 mm[Hg] Dr. Radha Khan Work Phone: [facility] 06-12-2022 07:50-0400 Body mass index (BMI) [Ratio] 45.8 kg/m2 Dr. Radha Khan Work Phone: [facility] 06-12-2022 07:50-0400 Body temperature 97.3 [degF] Dr. Radha Khan Work Phone: [facility] 06-12-2022 07:50-0400 Body weight 140.[address] Radha Khan Work Phone: [facility] 06-12-2022 07:50-0400 Diastolic blood pressure 72 mm[Hg] Dr. Radha Khan Work Phone: [facility] 06-12-2022 07:50-0400 Heart rate 83 /min Dr. Radha Khan Work Phone: [facility] 06-12-2022 07:50-0400 Respiratory rate 18 /min Dr. Radha Khan Work Phone: [facility] 06-12-2022 07:50-0400 SaO2% (BldA) [Mass fraction] 97 % Dr. Radha Khan Work Phone: [facility] 06-12-2022 07:50-0400 Systolic blood pressure 115 mm[Hg] Dr. Radha Khan Work Phone: 1(077)261-027395 [address] 05-21-2022 15:09-0500 Diastolic blood pressure 80 mm[Hg] Dr. Radha Khan Work Phone: 3(026)806-441517 [place] [address] 05-21-2022 15:09-0500 Systolic blood pressure 130 mm[Hg] Dr. Radha Khan Work Phone: 6(449)747-650195 [address] 05-21-2022 15:09-0500 Body mass index (BMI) [Ratio] 45.6 kg/m2 Dr. Radha Khan Work Phone: 9(482)314-160995 [address] 05-21-2022 15:09-0500 Body weight 140.[address] Radha Khan Work Phone: 6(484)191-023307 [place] [address] 05-21-2022 15:09-0500 Heart rate 80 /min Dr. Radha Khan Work Phone: 6(058)196-073507 [place] [address] 05-21-2022 15:09-0500 Respiratory rate 18 /min Dr. Radha Khan Work Phone: [facility] 05-21-2022 15:09-0500 SaO2% (BldA) [Mass fraction] 94 % Dr. Radha Khan Work Phone: [facility] 05-09-2022 08:42-0500 Body height 175.[address] Radha Khan Work Phone: 0(632)647-441407 [place] [address] 05-09-2022 08:42-0500 Body weight 136.[address] Radha Khan Work Phone: [facility] 05-08-2022 08:18-0500 Body mass index (BMI) [Ratio] 44.6 kg/m2 Dr. Radha Khan Work Phone: [facility] 05-03-2022 08:34-0500 Body mass index (BMI) [Ratio] 44.6 kg/m2 Dr. Radha Khan Work Phone: 3(413)153-696807 [place] [address] 05-03-2022 08:34-0500 Body weight 136.[address] Radha Khan Work Phone: 0(723)950-348895 [address] 05-03-2022 08:34-0500 Diastolic blood pressure 84 mm[Hg] Dr. Radha Khan Work Phone: 9(975)972-712895 [address] 05-03-2022 08:34-0500 Heart rate 92 /min Dr. Radha Khan Work Phone: 6(369)314-555695 [address] 05-03-2022 08:34-0500 Respiratory rate 20 /min Dr. Radha Khan Work Phone: 0(046)844-576195 [address] 05-03-2022 08:34-0500 SaO2% (BldA) [Mass fraction] 95 % Dr. Radha Khan Work Phone: 6(291)415-292407 [place] [address] 05-03-2022 08:34-0500 Systolic blood pressure 143 mm[Hg] Dr. Radha Khan Work Phone: 0(576)091-037507 [place] [address] 03-12-2022 10:43-0500 Body height 175.[address] Radha Khan Work Phone: 0(538)819-888607 [place] [address] 03-12-2022 10:43-0500 Body mass index (BMI) [Ratio] 45.6 kg/m2 Dr. Radha Khan Work Phone: [facility] 03-12-2022 10:43-0500 Body temperature 97.2 [degF] Dr. Radha Khan Work Phone: 1(305)592-596307 [place] [address] 03-12-2022 10:43-0500 Body weight 140.[address] Radha Khan Work Phone: [facility] 03-12-2022 10:43-0500 Diastolic blood pressure 59 mm[Hg] Dr. Radha Khan Work Phone: [facility] 03-12-2022 10:43-0500 Heart rate 78 /min Dr. Radha Khan Work Phone: [facility] 03-12-2022 10:43-0500 Respiratory rate 18 /min Dr. Radha Khan Work Phone: [facility] 03-12-2022 10:43-0500 SaO2% (BldA) [Mass fraction] 92 % Dr. Radha Khan Work Phone: [facility] 03-12-2022 10:43-0500 Systolic blood pressure 92 mm[Hg] Dr. Radha Khan Work Phone: [facility] 02-19-2022 08:31-0500 Body height 175.[address] Radha Khan Work Phone: [facility] Work Phone: 02-19-2022 08:31-0500 Body mass index (BMI) [Ratio] 45.8 kg/m2 Dr. Radha Khan Work Phone: [facility] 02-19-2022 08:31-0500 Body weight 140.[address] Radha Khan Work Phone: [facility] 02-19-2022 08:31-0500 Diastolic blood pressure 64 mm[Hg] Dr. Radha Khan Work Phone: [facility] 02-19-2022 08:31-0500 Heart rate 68 /min Dr. Radha Khan Work Phone: [facility] 02-19-2022 08:31-0500 Respiratory rate 18 /min Dr. Radha Khan Work Phone: [facility] 02-19-2022 08:31-0500 Systolic blood pressure 125 mm[Hg] Dr. Radha Khan Work Phone: [facility] 02-16-2022 12:47-0500 Body weight 136.[address] Radha Khan Work Phone: [facility] 02-16-2022 12:47-0500 Heart rate 77 /min Dr. Radha Khan Work Phone: [facility] 02-16-2022 12:47-0500 Inhaled oxygen flow rate 2 L/min Dr. Radha Khan Work Phone: [facility] 02-16-2022 12:47-0500 SaO2% (BldA) [Mass fraction] 98 % Dr. Radha Khan Work Phone: [facility] 02-12-2022 08:54-0500 Body mass index (BMI) [Ratio] 44.6 kg/m2 Dr. Radha Khan Work Phone: [facility] 02-12-2022 08:54-0500 Body temperature 98.2 [degF] Dr. Radha Khan Work Phone: [facility] 02-12-2022 08:54-0500 Body weight 137.[address] Radha Khan Work Phone: [facility] 02-12-2022 08:54-0500 Diastolic blood pressure 78 mm[Hg] Dr. Radha Khan Work Phone: [facility] 02-12-2022 08:54-0500 Heart rate 69 /min Dr. Radha Khan Work Phone: [facility] 02-12-2022 08:54-0500 Respiratory rate 18 /min Dr. Radha Khan Work Phone: [facility] 02-12-2022 08:54-0500 SaO2% (BldA) [Mass fraction] 98 % Dr. Radha Khan Work Phone: [facility] 02-12-2022 08:54-0500 Systolic blood pressure 122 mm[Hg] Dr. Radha Khan Work Phone: [facility] 01-15-2022 10:51-0400 Body mass index (BMI) [Ratio] 45.5 kg/m2 Dr. Radha Khan Work Phone: [facility] 01-15-2022 10:51-0400 Body temperature 97 [degF] Dr. Radha Khan Work Phone: [facility] 01-15-2022 10:51-0400 Body weight 139.[address] Radha Khan Work Phone: [facility] 01-15-2022 10:51-0400 Diastolic blood pressure 76 mm[Hg] Dr. Radha Khan Work Phone: [facility] 01-15-2022 10:51-0400 Heart rate 76 /min Dr. Radha Khan Work Phone: [facility] 01-15-2022 10:51-0400 Respiratory rate 18 /min Dr. Radha Khan Work Phone: [facility] 01-15-2022 10:51-0400 SaO2% (BldA) [Mass fraction] 93 % Dr. Radha Khan Work Phone: [facility] 01-15-2022 10:51-0400 Systolic blood pressure 124 mm[Hg] Dr. Radha Khan Work Phone: [facility] 11-13-2021 15:28-0400 Body mass index (BMI) [Ratio] 44.6 kg/m2 Dr. Radha Khan Work Phone: [facility] Work Phone: 11-13-2021 15:28-0400 Body weight 136.[address] Radha Khan Work Phone: [facility] Work Phone: 11-13-2021 15:28-0400 Diastolic blood pressure 64 mm[Hg] Dr. Radha Khan Work Phone: [facility] Work Phone: 11-13-2021 15:28-0400 Heart rate 79 /min Dr. Radha Khan Work Phone: [facility] Work Phone: 11-13-2021 15:28-0400 Respiratory rate 18 /min Dr. Radha Khan Work Phone: [facility] Work Phone: 11-13-2021 15:28-0400 Systolic blood pressure 110 mm[Hg] Dr. Radha Khan Work Phone: [facility] Work Phone: 09-07-2021 14:21-0400 Body height 175.[address] Radha Khan Work Phone: [facility] Work Phone: 09-07-2021 14:21-0400 Body mass index (BMI) [Ratio] 45 kg/m2 Dr. Radha Khan Work Phone: [facility] Work Phone: 09-07-2021 14:21-0400 Body weight 138.[address] Radha Khan Work Phone: [facility] Work Phone: 09-07-2021 14:21-0400 Diastolic blood pressure 79 mm[Hg] Dr. Radha Khan Work Phone: [facility] Work Phone: 09-07-2021 14:21-0400 Heart rate 79 /min Dr. Radha Khan Work Phone: [facility] Work Phone: 09-07-2021 14:21-0400 Respiratory rate 18 /min Dr. Radha Khan Work Phone: [facility] Work Phone: 09-07-2021 14:21-0400 SaO2% (BldA) [Mass fraction] 96 % Dr. Radha Khan Work Phone: [facility] Work Phone: 09-07-2021 14:21-0400 Systolic blood pressure 153 mm[Hg] Dr. Radha Khan Work Phone: [facility] Work Phone: 09-04-2021 10:10-0400 Diastolic blood pressure 82 mm[Hg] Dr. Radha Khan Work Phone: [facility] Work Phone: 09-04-2021 10:10-0400 Systolic blood pressure 172 mm[Hg] Dr. Radha Khan Work Phone: [facility] Work Phone: 09-04-2021 09:10-0400 Heart rate 78 /min Dr. Radha Khan Work Phone: [facility] Work Phone: 09-04-2021 09:10-0400 SaO2% (BldA) [Mass fraction] 95 % Dr. Radha Khan Work Phone: [facility] Work Phone: 09-04-2021 08:44-0400 Respiratory rate 16 /min Dr. Radha Khan Work Phone: [facility] Work Phone: 09-04-2021 06:22-0400 Body height 175.[address] Radha Khan Work Phone: [facility] Work Phone: 09-04-2021 06:22-0400 Body mass index (BMI) [Ratio] 45.1 kg/m2 Dr. Radha Khan Work Phone: [facility] Work Phone: 09-04-2021 06:22-0400 Body temperature 97.4 [degF] Dr. Radha Khan Work Phone: [facility] Work Phone: 09-04-2021 06:22-0400 Body weight 138.[address] Radha Khan Work Phone: [facility] Work Phone: 08-10-2021 13:42-0400 Body mass index (BMI) [Ratio] 44.5 kg/m2 Dr. Radha hKan Work Phone: [facility] Work Phone: 08-10-2021 13:42-0400 Body temperature 95.7 [degF] Dr. Radha Khan Work Phone: [facility] Work Phone: 08-10-2021 13:42-0400 Body weight 136.[address] Radha Khan Work Phone: [facility] Work Phone: 08-10-2021 13:42-0400 Diastolic blood pressure 80 mm[Hg] Dr. Radha Khan Work Phone: [facility] Work Phone: 08-10-2021 13:42-0400 Heart rate 84 /min Dr. Radha Khan Work Phone: [facility] Work Phone: 08-10-2021 13:42-0400 Respiratory rate 18 /min Dr. Radha Khan Work Phone: [facility] Work Phone: 08-10-2021 13:42-0400 SaO2% (BldA) [Mass fraction] 96 % Dr. Radha Khan Work Phone: [facility] Work Phone: 08-10-2021 13:42-0400 Systolic blood pressure 140 mm[Hg] Dr. Radha Khan Work Phone: [facility] Work Phone: 08-10-2021 13:42-0400 Body height 175.[address] Radha Khan Work Phone: [facility] Work Phone: 08-10-2021 13:42-0400 Body mass index (BMI) [Ratio] 44.5 kg/m2 Dr. Radha Khan Work Phone: [facility] Work Phone: 08-10-2021 13:42-0400 Body temperature 95.7 [degF] Dr. Radha Khan Work Phone: [facility] Work Phone: 08-10-2021 13:42-0400 Body weight 136.[address] Radha Khan Work Phone: [facility] Work Phone: 08-10-2021 13:42-0400 Diastolic blood pressure 80 mm[Hg] Dr. Radha Khan Work Phone: [facility] Work Phone: 08-10-2021 13:42-0400 Heart rate 84 /min Dr. Radha Khan Work Phone: [facility] Work Phone: 08-10-2021 13:42-0400 Respiratory rate 18 /min Dr. Radha Khan Work Phone: [facility] Work Phone: 08-10-2021 13:42-0400 SaO2% (BldA) [Mass fraction] 96 % Dr. Radha Khan Work Phone: [facility] Work Phone: 08-10-2021 13:42-0400 Systolic blood pressure 140 mm[Hg] Dr. Radha Khan Work Phone: [facility] Work Phone: 07-16-2021 16:25-0400 Body temperature 98.7 [degF] Dr. Radha Khan Work Phone: [facility] Work Phone: 07-16-2021 16:25-0400 Diastolic blood pressure 75 mm[Hg] Dr. Radha Khan Work Phone: [facility] Work Phone: 07-16-2021 16:25-0400 Heart rate 73 /min Dr. Radha Khan Work Phone: [facility] Work Phone: 07-16-2021 16:25-0400 Respiratory rate 18 /min Dr. Radha Khan Work Phone: [facility] Work Phone: 07-16-2021 16:25-0400 SaO2% (BldA) [Mass fraction] 99 % Dr. Radha Khan Work Phone: [facility] Work Phone: 07-16-2021 16:25-0400 Systolic blood pressure 155 mm[Hg] Dr. Radha Khan Work Phone: [facility] Work Phone: 07-16-2021 14:17-0400 Body height 175.[address] Radha Khan Work Phone: [facility] Work Phone: 07-16-2021 14:17-0400 Body mass index (BMI) [Ratio] 44.9 kg/m2 Dr. Radha Khan Work Phone: [facility] Work Phone: 07-16-2021 14:17-0400 Body weight [address] Radha Khan Work Phone: [facility] Work Phone: 07-13-2021 10:31-0400 Body mass index (BMI) [Ratio] 44.4 kg/m2 Dr. Radha Khan Work Phone: [facility] Work Phone: 07-13-2021 10:31-0400 Body temperature 98.2 [degF] Dr. Radha Khan Work Phone: [facility] Work Phone: 07-13-2021 10:31-0400 Body weight 136.[address] Radha Khan Work Phone: [facility] Work Phone: 07-13-2021 10:31-0400 Diastolic blood pressure 72 mm[Hg] Dr. Radha Khan Work Phone: [facility] Work Phone: 07-13-2021 10:31-0400 Heart rate 73 /min Dr. Radha Khan Work Phone: [facility] Work Phone: 07-13-2021 10:31-0400 Respiratory rate 17 /min Dr. Radha Khan Work Phone: [facility] Work Phone: 07-13-2021 10:31-0400 SaO2% (BldA) [Mass fraction] 99 % Dr. Radha Khan Work Phone: [facility] Work Phone: 07-13-2021 10:31-0400 Systolic blood pressure 115 mm[Hg] Dr. Radha Khan Work Phone: [facility] Work Phone: 07-13-2021 10:31-0400 Body mass index (BMI) [Ratio] 44.4 kg/m2 Dr. Radha Khan Work Phone: [facility] Work Phone: 07-13-2021 10:31-0400 Body temperature 98.2 [degF] Dr. Radha Khan Work Phone: [facility] Work Phone: 07-13-2021 10:31-0400 Body weight 136.[address] Radha Khan Work Phone: [facility] Work Phone: 07-13-2021 10:31-0400 Diastolic blood pressure 72 mm[Hg] Dr. Radha Khan Work Phone: [facility] Work Phone: 07-13-2021 10:31-0400 Heart rate 73 /min Dr. Radha Khan Work Phone: [facility] Work Phone: 07-13-2021 10:31-0400 Respiratory rate 17 /min Dr. Radha Khan Work Phone: [facility] Work Phone: 07-13-2021 10:31-0400 SaO2% (BldA) [Mass fraction] 99 % Dr. Radha Khan Work Phone: [facility] Work Phone: 07-13-2021 10:31-0400 Systolic blood pressure 115 mm[Hg] Dr. Radha Khan Work Phone: [facility] Work Phone: 07-12-2021 12:50-0400 Body weight 136.[address] Radha Khan Work Phone: [facility] Work Phone: 07-12-2021 12:50-0400 Diastolic blood pressure 83 mm[Hg] Dr. Radha Khan Work Phone: [facility] Work Phone: 07-12-2021 12:50-0400 Heart rate 72 /min Dr. Radha Khan Work Phone: [facility] Work Phone: 07-12-2021 12:50-0400 Respiratory rate 18 /min Dr. Radha Khan Work Phone: [facility] Work Phone: 07-12-2021 12:50-0400 SaO2% (BldA) [Mass fraction] 100 % Dr. Radha Khan Work Phone: [facility] Work Phone: 07-12-2021 12:50-0400 Systolic blood pressure 148 mm[Hg] Dr. Radha Khan Work Phone: [facility] Work Phone: 07-12-2021 12:50-0400 Body weight 136.[address] Radha Khan Work Phone: [facility] Work Phone: 07-12-2021 12:50-0400 Diastolic blood pressure 83 mm[Hg] Dr. Radha hKan Work Phone: [facility] Work Phone: 07-12-2021 12:50-0400 Heart rate 72 /min Dr. Radha Khan Work Phone: [facility] Work Phone: 07-12-2021 12:50-0400 Respiratory rate 18 /min Dr. Radha Khan Work Phone: [facility] Work Phone: 07-12-2021 12:50-0400 SaO2% (BldA) [Mass fraction] 100 % Dr. Radha Khan Work Phone: [facility] Work Phone: 07-12-2021 12:50-0400 Systolic blood pressure 148 mm[Hg] Dr. Radha Khan Work Phone: [facility] Work Phone: 06-29-2021 13:09-0400 Body mass index (BMI) [Ratio] 43.6 kg/m2 Dr. Radha Khan Work Phone: [facility] Work Phone: 06-29-2021 13:09-0400 Body temperature 96.9 [degF] Dr. Radha Khan Work Phone: [facility] Work Phone: 06-29-2021 13:09-0400 Body weight 133.[address] Radha Khan Work Phone: [facility] Work Phone: 06-29-2021 13:09-0400 Diastolic blood pressure 76 mm[Hg] Dr. Radha Khan Work Phone: [facility] Work Phone: 06-29-2021 13:09-0400 Heart rate 98 /min Dr. Radha Khan Work Phone: [facility] Work Phone: 06-29-2021 13:09-0400 Respiratory rate 18 /min Dr. Radha Khan Work Phone: [facility] Work Phone: 06-29-2021 13:09-0400 SaO2% (BldA) [Mass fraction] 98 % Dr. Radha Khan Work Phone: [facility] Work Phone: 06-29-2021 13:09-0400 Systolic blood pressure 110 mm[Hg] Dr. Radha Khan Work Phone: [facility] Work Phone: 06-29-2021 13:09-0400 Body mass index (BMI) [Ratio] 43.6 kg/m2 Dr. Radha Khan Work Phone: [facility] Work Phone: 06-29-2021 13:09-0400 Body temperature 96.9 [degF] Dr. Radha Khan Work Phone: [facility] Work Phone: 06-29-2021 13:09-0400 Body weight 133.[address] Radha Khan Work Phone: [facility] Work Phone: 06-29-2021 13:09-0400 Diastolic blood pressure 76 mm[Hg] Dr. Radha Khan Work Phone: [facility] Work Phone: 06-29-2021 13:09-0400 Heart rate 98 /min Dr. Radha Khan Work Phone: [facility] Work Phone: 06-29-2021 13:09-0400 Respiratory rate 18 /min Dr. Radha Khan Work Phone: [facility] Work Phone: 06-29-2021 13:09-0400 SaO2% (BldA) [Mass fraction] 98 % Dr. Radha Khan Work Phone: [facility] Work Phone: 06-29-2021 13:09-0400 Systolic blood pressure 110 mm[Hg] Dr. Radha Khan Work Phone: [facility] Work Phone: 06-20-2021 12:08-0400 Heart rate 90 /min Dr. Radha Khan Work Phone: [facility] Work Phone: 06-20-2021 10:32-0400 SaO2% (BldA) [Mass fraction] 95 % Dr. Radha Khan Work Phone: [facility] Work Phone: 06-20-2021 09:00-0400 Body temperature 97.8 [degF] Dr. Radha Khan Work Phone: [facility] Work Phone: 06-20-2021 09:00-0400 Diastolic blood pressure 82 mm[Hg] Dr. Radha Khan Work Phone: [facility] Work Phone: 06-20-2021 09:00-0400 Respiratory rate 18 /min Dr. Radha Khan Work Phone: [facility] Work Phone: 06-20-2021 09:00-0400 Systolic blood pressure 154 mm[Hg] Dr. Radha Khan Work Phone: [facility] Work Phone: 06-20-2021 06:00-0400 Body weight [address] Radha Khan Work Phone: [facility] Work Phone: 06-19-2021 10:46-0400 Body mass index (BMI) [Ratio] 44.3 kg/m2 Dr. Radha Khan Work Phone: [facility] Work Phone: 06-15-2021 14:08-0400 Body weight 139.[address] Radha Khan Work Phone: [facility] Work Phone: 06-15-2021 14:08-0400 Heart rate 84 /min Dr. Radha Khan Work Phone: [facility] Work Phone: 06-15-2021 14:08-0400 SaO2% (BldA) [Mass fraction] 97 % Dr. Radha Khan Work Phone: [facility] Work Phone: 06-01-2021 13:31-0500 Body mass index (BMI) [Ratio] 43.9 kg/m2 Dr. Radha Khan Work Phone: [facility] Work Phone: 06-01-2021 13:31-0500 Body temperature 96.9 [degF] Dr. Radha Khan Work Phone: [facility] Work Phone: 06-01-2021 13:31-0500 Body weight 134.[address] Radha Khan Work Phone: [facility] Work Phone: 06-01-2021 13:31-0500 Diastolic blood pressure 70 mm[Hg] Dr. Radha Khan Work Phone: [facility] Work Phone: 06-01-2021 13:31-0500 Heart rate 78 /min Dr. Radha Khan Work Phone: [facility] Work Phone: 06-01-2021 13:31-0500 Respiratory rate 18 /min Dr. Radha Khan Work Phone: [facility] Work Phone: 06-01-2021 13:31-0500 SaO2% (BldA) [Mass fraction] 100 % Dr. Radha Khan Work Phone: [facility] Work Phone: 06-01-2021 13:31-0500 Systolic blood pressure 110 mm[Hg] Dr. Radha Khan Work Phone: [facility] Work Phone: 06-01-2021 12:31-0500 Body mass index (BMI) [Ratio] 43.9 kg/m2 Dr. Radha Khan Work Phone: [facility] Work Phone: 06-01-2021 12:31-0500 Body temperature 96.9 [degF] Dr. Rdaha Khan Work Phone: [facility] Work Phone: 06-01-2021 12:31-0500 Body weight 134.[address] Radha Khan Work Phone: [facility] Work Phone: 06-01-2021 12:31-0500 Diastolic blood pressure 70 mm[Hg] Dr. Radha Khan Work Phone: [facility] Work Phone: 06-01-2021 12:31-0500 Heart rate 78 /min Dr. Radha Khan Work Phone: [facility] Work Phone: 06-01-2021 12:31-0500 Respiratory rate 18 /min Dr. Radha Khan Work Phone: [facility] Work Phone: 06-01-2021 12:31-0500 SaO2% (BldA) [Mass fraction] 100 % Dr. Radha Khan Work Phone: [facility] Work Phone: 06-01-2021 12:31-0500 Systolic blood pressure 110 mm[Hg] Dr. Radha Khan Work Phone: [facility] Work Phone: 10-13-2020 15:48-0400 Body mass index (BMI) [Ratio] 45.2 kg/m2 Dr. Radha Khan Work Phone: [facility] Work Phone: 10-13-2020 15:48-0400 Body mass index (BMI) [Ratio] 45.2 kg/m2 Dr. Radha Khan Work Phone: [facility] Work Phone: Encounters Encounter Date Encounter Type Care Provider Facility Start: 09-24-2024 End: 09-24-2024 Subsequent hospital visit by physician [facility] Comment on above: Arrived Start: 09-24-2024 End: 09-24-2024 ambulatory [facility] Start: 09-24-2024 End: 09-24-2024 Subsequent hospital visit by physician Dick Nguyen MD Work Phone: [facility] Comment on above: ILD (interstitial lavonne ng disease) (Multi) Start: 09-24-2024 End: 09-24-2024 ambulatory [facility] Start: 09-16-2024 End: 09-16-2024 Patient encounter procedure Coreen SHELDON -[facility] Work Phone: Start: 09-16-2024 End: 09-16-[address] Radha Khan MD Work Phone: [facility] Work Phone: Start: 09-15-2024 End: 09-15-[address] Toni Vann MD -[facility] Work Phone: Start: 09-15-2024 End: 09-15-[address] Radha Khan MD Work Phone: [facility] Work Phone: Start: 08-28-2024 End: 08-28-2024 Office outpatient visit 40 minutes Rosalino Padron MD Work Phone: [facility] Comment on above: ILD (interstitial lavonne ng disease) (Multi) (Primary Dx); Chronic respiratory failure with hypoxia; KIANNA (obstructive sleep apnea); BMI 40.0-44.9, adult (Multi); Diastolic heart failure, unspecified HF chronicity Start: 08-28-2024 End: 08-28-2024 ambulatory [facility] Start: 08-18-2024 End: 08-18-2024 Subsequent hospital visit by physician Oni Connor6 Pft Rm 2 [facility] Comment on above: ILD (interstitial lavonne ng disease) (Multi) Start: 08-18-2024 End: 08-18-2024 ambulatory [facility] Start: 08-17-2024 End: 08-17-[address] Toni Vann MD -[facility] Work Phone: Start: 08-17-2024 End: 08-17-2024 Dr. Toni Vann MD -[facility] Work Phone: Start: 08-17-2024 End: 08-17-[address] Radha Khan MD Work Phone: [facility] Work Phone: Start: 08-12-2024 End: 08-12-2024 Patient encounter procedure Sumanth Hanna MD -[facility] Work Phone: Start: 08-12-2024 End: 08-12-2024 Sumanth Hanna MD -[facility] Work Phone: Start: 08-12-2024 End: 08-12-[address] Radha Khan MD Work Phone: [facility] Work Phone: Start: 08-12-2024 End: 08-12-2024 ambulatory [facility] Facility:[facility] Start: 08-07-2024 End: 08-07-2024 Office outpatient visit 40 minutes Rosalino Padron MD Work Phone: [facility] Comment on above: ILD (interstitial lavonne ng disease) (Multi) (Primary Dx); Chronic respiratory failure with hypoxia; KIANNA (obstructive sleep apnea); BMI 40.0-44.9, adult (Multi); Diastolic heart failure, unspecified HF chronicity Start: 08-07-2024 End: 08-07-2024 ambulatory [facility] Start: 08-06-2024 End: 08-06-[address] Toni Vann MD -[facility] Work Phone: Start: 08-06-2024 End: 08-06-2024 Dr. Toni Vann MD -[facility] Work Phone: Start: 08-06-2024 End: 08-06-2024 ambulatory Toni Vann Facility:[facility] Start: 07-24-2024 End: 07-24-2024 Subsequent hospital visit by physician Clifford kamara Pft Room [facility] Comment on above: ILD (interstitial lavonne ng disease) (Multi) Start: 07-24-2024 End: 07-24-2024 ambulatory [facility] Start: 07-23-2024 End: 07-23-2024 Subsequent hospital visit by physician Michael Stallings [facility] Comment on above: Pulmonary hypertensi on (Multi) Start: 07-23-2024 End: 07-23-2024 ambulatory [facility] Start: 07-20-2024 End: 04-21-2025 Subsequent hospital visit by physician Lorenza [id number] [facility] Comment on above: ILD (interstitial lavonne ng disease) (Multi) Start: 07-20-2024 End: 07-20-2024 ambulatory [facility] Start: 07-06-2024 End: 07-06-[address] Toni Vann MD -[facility] Work Phone: Start: 07-06-2024 End: 07-06-2024 Dr. Toni Vann MD -[facility] Work Phone: Start: 07-06-2024 End: 07-06-2024 ambulatory Toni Vann Facility:[facility] Start: 06-26-2024 End: 06-26-2024 Office outpatient new 60 minutes Rosalino Padron MD Work Phone: [facility] Comment on above: ILD (interstitial lavonne ng disease) (Multi) (Primary Dx); Pulmonary hypertension (Multi); Chronic respiratory failure with hypoxia (Multi) Start: 06-26-2024 End: 06-26-2024 ambulatory [facility] Start: 06-10-2024 End: 06-10-2024 Patient encounter procedure SAV Rojas -[facility] Work Phone: Start: 06-10-2024 End: 06-10-2024 [facility] Work [facility]: Start: 06-10-2024 End: 06-10-2024 ambulatory Radha Khan Facility:[facility] Start: 06-04-2024 End: 06-04-[address] Toni Vann MD -[facility] Work Phone: Start: 06-04-2024 End: 06-04-2024 Dr. Toin Vann MD -[facility] Work Phone: Start: 06-04-2024 End: 06-04-2024 ambulatory Toni Vann Facility:[facility] Start: 06-02-2024 End: 06-02-2024 Patient encounter procedure CASE WORK AIDE Chen Bob -[facility] Work Phone: Start: 06-02-2024 End: 06-02-2024 CASE WORK AIDE Chen Bob -[facility] Work Phone: Start: 06-02-2024 End: 06-02-2024 ambulatory Chen Rojas Facility:[facility] Start: 05-28-2024 Non-patient / Non-visit Dr. Jemima MCRAE -[facility] Work Phone: Start: 05-28-2024 ambulatory Lydia GRIFFITHS Facility:[facility] Start: 05-28-2024 Registered Referred Lydia Segura PA -Cardiovascular Services Work Phone: Start: 05-28-2024 Dr. Sumanth Hanna MD -[facility] Work Phone: Start: 05-21-2024 End: 05-21-2024 Patient encounter procedure Lydia Segura PA -Laboratory Work Phone: Start: 05-21-2024 End: 05-21-2024 Lydia GRIFFITHS -Laboratory Work Phone: Start: 05-21-2024 End: 05-21-2024 Patient encounter procedure Lydia GRIFFITHS -[facility] Work Phone: Start: 05-21-2024 End: 05-21-2024 Lydia GRIFFITHS -[facility] Work Phone: Start: 05-21-2024 End: 05-21-2024 ambulatory Radha Khan Facility:[facility] Start: 05-21-2024 End: 05-21-2024 ambulatory Lydia GRIFFITHS Facility:[facility] Start: 05-08-2024 End: 05-08-2024 Telephone encounter Oziel Culp MD Work Phone: [facility] Start: 05-07-2024 End: 05-08-2024 Orders Only Mey oLya 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 Rito Lundberg MD -[facility] Work Phone: Start: 05-05-2024 End: 05-05-2024 ambulatory Radha S Jolliff Facility:[facility] Start: 05-01-2024 End: 05-01-2024 SAV Rojas -[facility] Work Phone: Start: 05-01-2024 End: 05-01-2024 ambulatory Radha S Jolliff Facility:[facility] Start: 04-30-2024 End: 04-30-2024 Dr. Ocoha Dobbs MD -[facility] Work Phone: Start: 04-30-2024 End: 04-30-2024 ambulatory Radha S Jolliff Facility:[facility] Start: 04-30-2024 End: 04-30-2024 Dr. Toni Vann MD -[facility] Work Phone: Start: 04-30-2024 End: 04-30-2024 ambulatory Toni Vann Facility:[facility] Start: 04-27-2024 End: 04-27-2024 Office outpatient visit 25 minutes Suzy Jauregui MD Work Phone: [facility] [place] Comment on above: Cerebrovascular acci dent (CVA), unspecified mechanism (HCC) (Primary Dx); Bilateral carotid artery stenosis Start: 04-27-2024 End: 04-27-2024 ambulatory SUZY JAUREGUI [facility] Start: 04-25-2024 Dr. Ochoa Johnson DO - [facility] Work Phone: Start: 04-24-2024 ambulatory Daniel Mcneil Facility: [facility] Start: 04-24-2024 End: 04-25-2024 Evaluation and management of inpatient Ochoa Johnson Facility:[facility] Start: 04-24-2024 End: 04-25-2024 Dr. Ochoa Johnson DO -[facility] Work Phone: Start: 04-24-2024 End: 04-24-2024 Dr. 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 Cuco Soler MD -[facility] Work Phone: Start: 04-14-2024 ambulatory Radha S Jolliff Facility: [facility] Start: 04-13-2024 ambulatory Radha S Jolliff Facility: [facility] Start: 04-12-2024 ambulatory Radha S Jolliff Facility: [facility] Start: 04-12-2024 End: 04-15-2024 Evaluation and management of inpatient Radha S Jolliff Facility:[facility] Start: 04-12-2024 End: 04-15-2024 Dr. Cuco Soler MD -[facility] Work Phone: Start: 04-09-2024 End: 04-09-2024 ambulatory Radha S Jolliff Facility:[facility] Start: 04-06-2024 End: 04-06-2024 Subsequent hospital visit by physician Suzy Jauregui MD Work Phone: [facility] Comment on above: Bilateral carotid ar christine occlusion Start: 04-06-2024 End: 04-06-2024 ambulatory SUZY JAUREGUI [facility] Start: 03-30-2024 End: 03-30-2024 ambulatory Radha S Jolliff Facility:[facility] Start: 03-30-2024 ambulatory Radha S Jolliff Facility: [facility] Start: 03-30-2024 End: 03-30-2024 ambulatory Radha S Jolliff Facility:[facility] Start: 03-27-2024 ambulatory Radha S Jolliff Facility: [facility] Start: 03-27-2024 End: 03-27-2024 ambulatory Radha S Jolliff Facility:[facility] Start: 03-23-2024 End: 03-23-2024 ambulatory Radha S Jolliff Facility:[facility] Start: 03-13-2024 End: 03-13-2024 ambulatory Radha S Jolliff Facility:[facility] Start: 03-03-2024 ambulatory Tia Boyd Fa cility:[facility] Start: 03-02-2024 ambulatory Xiao Berrios [facility] Start: 03-02-2024 End: 03-04-2024 Evaluation and management of inpatient Xiao Berrios Facility:[facility] Start: 02-26-2024 End: 02-26-2024 Emergency department patient visit Radha S Jolliff Facility:[facility] Start: 02-21-2024 ambulatory Mireya Apontei ty:[facility] Start: 02-20-2024 End: 02-20-2024 ambulatory Toni Thelmanelson Facility:[facility] Start: 02-18-2024 End: 02-18-2024 ambulatory Radha S Jolliff Facility:[facility] Start: 02-13-2024 End: 02-13-2024 Orders Only Mey Loya STAFF AIR DEFENSE OFFICER - LEGISLATIVE CORRESPONDENT Work Phone: [facility] Comment on above: Ischemic cerebrovasc ular accident (CVA) (HCC) (Primary Dx); Bilateral carotid artery stenosis Start: 02-07-2024 End: 02-07-2024 ambulatory Radha S Jolliff Facility:[facility] Start: 02-06-2024 End: 03-04-2024 Telephone encounter Oziel Culp MD Work Phone: [facility] Clinical Communication Start: 02-06-2024 End: 02-06-2024 Subsequent hospital visit by physician Oziel Culp MD Work Phone: [facility] [address] Comment on above: Arrived Start: 02-06-2024 End: 02-06-2024 ambulatory [facility] Start: 02-06-2024 End: 02-06-2024 ambulatory Radha S Jolliff Facility:[facility] Start: 02-05-2024 End: 02-05-2024 ambulatory [facility] Start: 02-03-2024 End: 02-03-2024 ambulatory Radha S Jolliff Facility:[facility] Start: 01-21-2024 End: 01-22-2024 ambulatory [facility] Start: 01-21-2024 End: 01-22-2024 Evaluation and management of inpatient Eduin Umaña Facility:[facility] Start: 01-20-2024 End: 01-20-2024 ambulatory Toni Vann Facility:[facility] Start: 01-16-2024 End: 01-16-2024 Orders Only Mey Caballero CNP Work Phone: [facility] Comment on above: Chronic kidney disea se, unspecified CKD stage (Primary Dx) Start: 01-10-2024 End: 01-10-2024 ambulatory Radha S Jolliff Facility:[facility] Start: 01-06-2024 End: 01-06-2024 Office outpatient visit 25 minutes Oziel Culp MD Work Phone: [facility] Comment on above: Bilateral carotid ar christine stenosis (Primary Dx); Ischemic cerebrovascular accident (CVA) ([facility]) Start: 01-06-2024 End: 01-06-2024 ambulatory [facility] Start: 01-01-2024 ambulatory Oren Sky NP Facility :[facility] Start: 01-01-2024 End: 01-01-2024 ambulatory Oren Jackson Asya CASE WORK AIDE Facility:[facility] Start: 12-26-2023 End: 12-26-2023 ambulatory Radha S Jolliff Facility:[facility] Start: 12-19-2023 End: 12-19-2023 ambulatory Toni Sandersonur Facility:[facility] Start: 12-12-2023 End: 12-12-2023 ambulatory Radha S Jolliff Facility:[facility] Start: 12-12-2023 End: 12-12-2023 ambulatory Oren H Roof CASE WORK AIDE Facility:[facility] Start: 12-06-2023 End: 12-06-2023 ambulatory Radha S Jolliff Facility:[facility] Start: 11-27-2023 End: 11-27-2023 ambulatory Radha S Jolliff Facility:[facility] Start: 11-18-2023 End: 11-18-2023 ambulatory Toni Vann Facility:[facility] Start: 11-16-2023 End: 11-16-2023 Emergency department patient visit Armin Fermin Facility:[facility] Start: 11-14-2023 End: 11-14-2023 ambulatory Bethanyflorentino Shelley Facility:[facility] Start: 11-14-2023 End: 11-14-2023 Evaluation and management of inpatient Edmund Dey Facility:[facility] Start: 11-14-2023 ambulatory Eduin Latif ty:[facility] Start: 11-14-2023 ambulatory Edmund Dey [facility] Start: 11-04-2023 End: 11-04-2023 ambulatory Radha S Jolliff Facility:[facility] Start: 10-30-2023 End: 10-31-2023 ambulatory Radha S Jolliff Facility:[facility] Start: 10-29-2023 End: 10-29-2023 ambulatory Radha S Jolliff Facility:[facility] Start: 10-17-2023 End: 10-17-2023 ambulatory Radha S Jolliff Facility:[facility] Start: 10-14-2023 End: 10-14-2023 ambulatory Radha S Jolliff Facility:[facility] Start: 10-14-2023 End: 10-14-2023 ambulatory Radha S Jolliff Facility:[facility] Start: 10-08-2023 End: 10-08-2023 ambulatory Bethany Shelley Facility:[facility] Start: 10-08-2023 ambulatory Radha Khan Facility: [facility] Start: 10-03-2023 End: 10-05-2023 Evaluation and management of inpatient Joe Rocha MD Work Phone: [facility] 4W Comment on above: Cerebrovascular acci dent (CVA), unspecified mechanism (HCC) (Primary Dx) Start: 10-01-2023 End: 10-03-2023 Evaluation and management of inpatient CHITO Savannah BUENROSTRO STAFF AIR DEFENSE OFFICER-LEGISLATIVE CORRESPONDENT [facility] Start: 10-01-2023 ambulatory Radha Khan Facility: [facility] Start: 10-01-2023 End: 10-01-2023 ambulatory Radha Khan Facility:[facility] Start: 09-26-2023 End: 09-26-2023 ambulatory Radha Khan Facility:[facility] Start: 09-24-2023 End: 09-24-2023 ambulatory Radha Khan Facility:[facility] Start: 09-19-2023 End: 09-19-2023 ambulatory Radha S Bill Facility:[facility] Start: 08-05-2023 End: 08-05-[address] Radha Khan Work Phone: [facility] Work Phone: Start: 08-05-2023 End: 08-05-[address] Radha Khan Work Phone: [facility]-Laboratory Work Phone: Start: 07-17-2023 End: 07-17-[address] Radha Khan Work Phone: [facility] Surgery Work Phone: Start: 07-03-2023 End: 07-03-[address] Radha Khan Work Phone: [facility] Work Phone: Start: 06-06-2023 End: 06-06-[address] Radha Khan Work Phone: [facility] Work Phone: Start: 06-06-2023 End: 06-06-[address] Radha Khan Work Phone: [facility] Work Phone: Start: 05-21-2023 End: 05-21-[address] Radha Khan Work Phone: [facility] Work Phone: Start: 05-20-2023 End: 05-20-[address] Radha Khan Work Phone: [facility] Endocrinology Work Phone: Start: 05-01-2023 Non-patient / Non-visit Dr. Armen Khan Work Phone: [facility] Start: 05-01-2023 End: 05-01-[address] Radha Khan Work Phone: [facility] Work Phone: Start: 05-01-2023 End: 05-01-[address] Radha Khan Work Phone: [facility]-Cardiovascula r Services Work Phone: Start: 04-25-2023 End: 04-25-[address] Radha Khan Work Phone: [facility] Work Phone: Start: 04-25-2023 End: 04-25-[address] Radha Khan Work Phone: [facility]-Laboratory Work Phone: Start: 04-25-2023 End: 04-25-[address] Radha Khan Work Phone: [facility] Work Phone: Start: 03-15-2023 Non-patient / Non-visit Dr. Armen Khna Work Phone: [facility] Start: 03-15-2023 End: 03-15-[address] Radha Khan Work Phone: [facility] Work Phone: Start: 03-15-2023 End: 03-15-[address] Radha Khan Work Phone: [facility]-Ultrasound, [facility] Work Phone: Start: 03-12-2023 End: 03-12-[address] Radha Khan Work Phone: [facility] Neurology Work Phone: Start: 02-28-2023 End: 02-28-[address] Radha Khan Work Phone: [facility] Work Phone: Start: 02-28-2023 End: 02-28-[address] Radha Khan Work Phone: [facility]-Laboratory, Specimen Work Phone: Start: 02-28-2023 End: 02-28-[address] Radha Khan Work Phone: [facility] Work Phone: Start: 02-27-2023 End: 02-27-[address] Radha Khan Work Phone: [facility] Work Phone: Start: 02-26-2023 End: 02-26-[address] Radha Khan Work Phone: [facility] Work Phone: Start: 02-26-2023 End: 02-26-2023 Patient encounter procedure Dr. Radha Khan Work Phone: [facility] Work Phone: Start: 02-18-2023 End: 02-18-2023 Admission to same day surgery center Dr. Radha Khan Work Phone: [facility] Start: 02-18-2023 End: 02-18-[address] Radha Khan Work Phone: [facility] Work Phone: Start: 02-04-2023 End: 02-04-[address] Radha Khan Work Phone: [facility] Work Phone: Start: 01-15-2023 End: 01-15-[address] Radha Khan Work Phone: [facility] Work Phone: Start: 01-15-2023 End: 01-15-[address] Radha Khan Work Phone: [facility] Work Phone: Start: 01-07-2023 End: 01-07-[address] Radha Khan Work Phone: [facility] Work Phone: Start: 01-07-2023 End: 01-07-[address] Radha Khan Work Phone: [facility] Work Phone: Start: 01-01-2023 End: 01-01-[address] Radha Khan Work Phone: [facility] Work Phone: Start: 01-01-2023 End: 01-01-[address] Radha Khan Work Phone: [facility] Work Phone: Start: 12-31-2022 End: 12-31-[address] Radha Khan Work Phone: [facility] Work Phone: Start: 12-10-2022 End: 12-10-[address] Radha Khan Work Phone: [facility] Work Phone: Start: 11-09-2022 End: 11-09-[address] Radha Khan Work Phone: [facility] Work Phone: Start: 11-09-2022 End: 11-09-[address] Radha Khan Work Phone: [facility] Work Phone: Start: 11-07-2022 End: 11-07-[address] Radha Khan Work Phone: [facility] Work Phone: Start: 11-07-2022 End: 11-07-[address] Radha Khan Work Phone: [facility] Work Phone: Start: 10-31-2022 End: 10-31-[address] Radha Khan Work Phone: [facility] Work Phone: Start: 10-31-2022 End: 10-31-[address] Radha Khan Work Phone: [facility] Start: 10-12-2022 End: 10-12-[address] Radha Khan Work Phone: [facility] Work Phone: Start: 10-12-2022 End: 10-12-[address] Radha Khan Work Phone: [facility] Work Phone: Start: 10-08-2022 End: 10-08-[address] Radha Khan Work Phone: [facility] Work Phone: Start: 10-01-2022 Non-patient / Non-visit Dr. Armen Khan Work Phone: [facility] Start: 10-01-2022 End: 10-01-[address] Radha Khan Work Phone: [facility] Work Phone: Start: 10-01-2022 End: 10-01-[address] Radha Khan Work Phone: [facility] Work Phone: Start: 09-03-2022 End: 09-03-[address] Radha Khan Work Phone: [facility] Work Phone: Start: 08-03-2022 Non-patient / Non-visit Dr. Armen Khan Work Phone: [facility] Start: 08-02-2022 Non-patient / Non-visit Dr. Armen Khan Work Phone: [facility] Start: 08-01-2022 End: 08-03-2022 Evaluation and management of inpatient Dr. Radha Khan Work Phone: [facility]Progressive [facility] Unit Start: 08-01-2022 End: 08-03-[address] Radha Khan Work Phone: [facility] Work Phone: Start: 07-27-2022 End: 07-27-[address] Radha Khan Work Phone: [facility] Work Phone: Start: 07-27-2022 End: 07-27-[address] Radha Khan Work Phone: [facility] Start: 06-26-2022 End: 06-26-[address] Radha Khan Work Phone: [facility] Work Phone: Start: 06-26-2022 End: 06-26-[address] Radha Khan Work Phone: [facility] Start: 06-18-2022 End: 06-18-[address] Radha Khan Work Phone: [facility] Start: 06-12-2022 End: 06-12-[address] [facility] Start: 05-21-2022 End: 05-21-[address] Radha Khan Work Phone: [facility] Start: 05-18-2022 End: 05-18-[address] Radha Khan Work Phone: [facility] Start: 05-09-2022 End: 05-09-2022 Admission to same day surgery center Dr. Radha Khan Work Phone: [facility]/Special Procedures Start: 05-09-2022 End: 05-09-[address] Radha Khan Work Phone: [facility] Work Phone: Start: 05-03-[address] Barney Khan Work Phone: [facility] Start: 05-03-2022 End: 05-03-[address] Radha Khan Work Phone: [facility] Start: 04-27-2022 End: 04-27-[address] Radha Khan Work Phone: [facility] Work Phone: Start: 04-27-2022 End: 04-27-[address] Radha Khan Work Phone: [facility] Start: 04-17-2022 End: 04-17-[address] Radha Khan Work Phone: [facility] Work Phone: Start: 04-17-2022 End: 04-17-[address] Radha Khan Work Phone: [facility] Start: 03-12-2022 End: 03-12-[address] Radha Khan Work Phone: [facility] Start: 02-19-2022 End: 02-19-[address] Radha Khan Work Phone: [facility] Start: 02-17-2022 Non-patient / Non-visit Dr. Armen Khan Work Phone: [facility] Start: 02-16-2022 End: 02-16-[address] Radha Khan Work Phone: [facility] Work Phone: Start: 02-16-2022 End: 02-16-[address] Radha Khan Work Phone: [facility]Pulmonary Services/Neurology Start: 02-12-2022 End: 02-12-[address] [facility] Start: 01-15-2022 End: 01-15-[address] Radha Khan Work Phone: [facility] Start: 11-13-2021 End: 11-13-[address] Radha Khan Work Phone: [facility] Start: 09-19-2021 End: 09-19-[address] Radha Khan Work Phone: [facility]Pulmonary Services/Neurology Start: 09-07-2021 End: 09-07-[address] Radha Khan Work Phone: [facility] Start: 09-04-2021 End: 09-04-2021 Emergency department patient visit Dr. Radha Khan Work Phone: [facility]Emergency Department Start: 08-14-2021 Non-patient / Non-visit Dr. Armen Khan Work Phone: [facility] Start: 08-14-2021 End: 08-14-[address] Radha Khan Work Phone: [facility] Start: 08-10-2021 End: 08-10-[address] Radha Khan Work Phone: [facility] Start: 08-09-2021 End: 08-09-[address] Radha Khan Work Phone: [facility] Start: 07-16-2021 End: 07-16-2021 Emergency department patient visit Dr. Radha Khan Work Phone: [facility]Emergency Department Start: 07-13-2021 End: 07-13-[address] [facility] Start: 07-12-2021 End: 07-12-[address] Radha Khan Work Phone: [facility]Laboratory Start: 07-12-2021 End: 07-12-[address] Radha Khan Work Phone: [facility] Start: 06-29-2021 End: 06-29-[address] Radha Khan Work Phone: [facility] Start: 06-20-2021 Non-patient / Non-visit Dr. Armen Khan Work Phone: [facility] Start: 06-19-2021 Non-patient / Non-visit Dr. Armen Khan Work Phone: [facility] Start: 06-19-2021 Non-patient / Non-visit Dr. Armen Khan Work Phone: [facility] Start: 06-19-2021 End: 06-20-2021 Evaluation and management of inpatient Dr. aRdha Khan Work Phone: [facility]Progressive [facility] Unit Start: 06-15-2021 Non-patient / Non-visit Dr. Armen Khan Work Phone: [facility] Start: 06-15-2021 End: 06-15-[address] Radha Khan Work Phone: [facility]Pulmonary Services/Neurology Start: 06-02-2021 End: 06-02-[address] Radha Khan Work Phone: [facility]/Neurology Start: 06-02-2021 Non-patient / Non-visit Dr. Armen Khan Work Phone: [facility] Start: 06-01-2021 End: 06-01-[address] Radha Khan Work Phone: [facility]Laboratory, [facility] Start: 06-01-2021 End: 06-01-[address] Radha Khan Work Phone: [facility] Start: 05-30-2021 End: 05-30-[address] Radha Khan Work Phone: [facility] Start: 12-27-2010 End: 12-27-2010 Patient encounter procedure Karlos Aquino Work Phone: [facility] Start: 12-27-2010 Results Only Karlossalma lehman Work Phone: [facility] Procedures Date Procedure Procedure Detail Performing Clinician Start: 09-24-2024 Radiologic exam ches t single view Maeve Pringle MD Work Phone: Start: 09-24-2024 Brnchsc w/brncl alve olar lavage Dick Nguyen MD Work Phone: Start: 09-24-2024 Smr prim src gram/gi emsa stain bct fungi/cell Dick Nguyen MD Work Phone: Start: 09-24-2024 Cell count and Diffe rential panel - Body fluid Dick Nguyen MD Work Phone: Start: 09-24-2024 Cell count misc body fluids w/differential count Dick Nguyen MD Work Phone: Start: 09-24-2024 Cell count panel - B francie fluid Dick Nguyen MD Work Phone: Start: 08-18-2024 Spmtry w/vc expirato ry tamir w/wo mxml vol vntj Rosalino Padron MD Work Phone: Start: 08-18-2024 PULMONARY STRESS KARLY T (6 MIN. WALK) Rosalino aPdron MD Work Phone: Start: 08-18-2024 DLCO / DIFFUSION CAPACITY Rosalino Padron MD Work Phone: Start: 08-12-2024 X-ray of chest, PA a nd lateral views Dr. Radha Khan MD Work Phone: Start: 07-20-2024 Ct thorax w/o contra st material Rosalino Padron MD Work Phone: Start: 05-21-2024 Anion gap measurement Jenny Khan MD Work Phone: Start: 05-21-2024 BUN/Creatinine ratio Dr Mindi Khan MD Work Phone: Start: 05-21-2024 Measurement of renal function Dr. Radha Khan MD Work Phone: Comment on above: GFR Calc Start: 05-21-2024 Evaluation of diagno stic study results Dr. Radha Khan MD Work Phone: Start: 05-06-2024 Platelet aggregation in vitro each agent Oziel Culp MD Work Phone: Start: 05-06-2024 RFA Cerebral arterie s Bilateral Views W contrast IA Mey Loya [employer] - LEGISLATIVE CORRESPONDENT Work Phone: Start: 05-06-2024 Ecg routine ecg w/le ast 12 lds trcg only w/o i&r Mey Loya [employer]ICER - LEGISLATIVE CORRESPONDENT Work Phone: Start: 05-06-2024 Basic metabolic pane l calcium total Mey Nely Loya [employer] OFFICER - LEGISLATIVE CORRESPONDENT Work Phone: Start: 05-05-2024 Blood count smear mc rscp w/mnl difrntl wbc count Dr. Radha Khan MD Work Phone: Start: 05-05-2024 Blood disorder - ini tial assessment Dr. Radha Khan MD Work Phone: Start: 05-05-[address] Mindi Khan MD Work Phone: Start: 05-05-2024 Mean corpuscular hem oglobin concentration determination Dr. Radha Khan MD Work Phone: Start: 05-05-2024 Nucleated red blood cell count procedure Dr. Radha Khan MD Work Phone: Start: 05-05-2024 Platelet mean volume determination Dr. Radha Khan MD Work Phone: Start: 05-05-2024 Total iron binding c apacity measurement Dr. Radha Khan MD Work Phone: Start: 04-27-2024 Follow-up visit Follow-up SHIRLEY Medina JUVENTINO Start: 04-25-2024 MRI of brain without contrast Dr. Radha Khan MD Work Phone: Start: 04-25-2024 Albumin/Globulin ratio Dr. Radha Khan MD Work Phone: Start: 04-25-2024 Anion gap measurement Jenny Khan MD Work Phone: Start: 04-25-2024 Blood count smear mc rscp w/mnl difrntl wbc count Dr. Radha Khan MD Work Phone: Start: 04-25-2024 Blood disorder - ini tial assessment Dr. Radha Khan MD Work Phone: Start: 04-25-2024 BUN/Creatinine ratio Dr Mindi Khan MD Work Phone: Start: 04-25-[address] Radha Khan MD Work Phone: Start: 04-25-2024 Mean corpuscular hem oglobin concentration determination Dr. Radha Khan MD Work Phone: Start: 04-25-2024 Measurement of renal function Dr. Radha Khan MD Work Phone: Start: 04-25-2024 Nucleated red blood cell count procedure Dr. Radha Khan MD Work Phone: Start: 04-25-2024 Platelet mean volume determination Dr. Radha Khan MD Work Phone: Start: 04-24-2024 Plain X-ray abdomen Dr. Radha Khan MD Work Phone: Start: 04-24-2024 Plain chest X-ray Dr. Barney Khan MD Work Phone: Start: 04-24-2024 CT angiography of he ad and neck Dr. Radha Khan MD Work Phone: Start: 04-24-2024 CT of head without contrast Dr. Radha Khan MD Work Phone: Start: 04-24-2024 Calculation of international normalized ratio Dr. Radha Khan MD Work Phone: Start: 04-24-2024 Blood count smear mc rscp w/mnl difrntl wbc count Dr. Radha Khan MD Work Phone: Start: 04-24-2024 Blood disorder - ini tial assessment Dr. Radha Khan MD Work Phone: Start: 04-24-[address] Mindi Khan MD Work Phone: Start: 04-24-[address] e fraction Dr. Radha Khan MD Work Phone: Start: 04-24-2024 Mean corpuscular hem oglobin concentration determination Dr. Radha Khan MD Work Phone: Start: 04-24-2024 Nucleated red blood cell count procedure Dr. Radha Khan MD Work Phone: Start: 04-24-2024 Platelet mean volume determination Dr. Radha Khan MD Work Phone: Start: 04-24-2024 Total iron binding c apacity measurement Dr. Radha Khan MD Work Phone: Start: 04-15-2024 Anion gap measurement Jenny Khan MD Work Phone: Start: 04-15-2024 Blood count smear mc rscp w/mnl difrntl wbc count Dr. Radha Khan MD Work Phone: Start: 04-15-2024 BUN/Creatinine ratio Dr Mindi Khan MD Work Phone: Start: 04-15-[address] Radha Khan MD Work Phone: Start: 04-15-2024 Mean corpuscular hem oglobin concentration determination Dr. Radha Khan MD Work Phone: Start: 04-15-2024 Measurement of renal function Dr. Radha Khan MD Work Phone: Start: 04-15-2024 Nucleated red blood cell count procedure Dr. Radha Khan MD Work Phone: Start: 04-15-2024 Platelet mean volume determination Dr. Radha Khan MD Work Phone: Start: 04-14-2024 Bacterial nucleic ac id assay Dr. Radha Khan MD Work Phone: Start: 04-14-2024 End: 04-14-2024 Streptococcus pneumoniae antigen assay Dr. Radha Khan MD Work Phone: Start: 04-14-2024 Assay of phosphorus inorganic Dr. Radha Khan MD Work Phone: Start: 04-13-2024 Legionella pneumophi la antigen assay Dr. Radha Khan MD Work Phone: Start: 04-13-[address] Radha Khan MD Work Phone: Start: 04-13-2024 CT of chest without contrast Dr. Radha Khan MD Work Phone: Start: 04-12-[address] Radha tran MD Work Phone: Start: 04-12-2024 Identification proce dure for living organism Dr. Radha Khan MD Work Phone: Start: 04-12-2024 Dr. Radha terry MD Work Phone: Start: 04-12-2024 Plain chest X-ray Dr. Barney Khan MD Work Phone: Start: 04-12-[address] Radha Khan MD Work Phone: Start: 04-12-2024 Venous oxygen satura tion measurement Dr. Radha Khan MD Work Phone: Start: 04-06-2024 Duplex scan extracra nial art compl bi study Suzy Jauregui MD Work Phone: Start: 02-06-2024 Ct angiography head w/contrast/noncontrast Oziel Culp MD Work Phone: Start: 10-05-2023 Glucose quantitative blood xcpt reagent strip Harmeet Stallworth MD Work Phone: Start: 10-05-2023 Glucose quantitative blood xcpt reagent strip Harmeet Stallworth MD Work Phone: Start: 10-05-2023 Comprehensive metabo lic panel Harmeet Stallworth MD Work Phone: Start: 10-04-2023 Glucose quantitative blood xcpt reagent strip Harmeet Stallworth MD Work Phone: Start: 10-04-2023 Glucose quantitative blood xcpt reagent strip Harmeet Stallworth MD Work Phone: Start: 10-04-2023 End: 10-04-2023 Assay of troponin quantitative Michael Rico MD Work Phone: Start: 10-04-2023 Lipid panel Pili ca MD Work Phone: Start: 10-04-2023 Duplex scan extracra nial art compl bi study Karol Melissa MD Work Phone: Start: 10-04-2023 End: 10-04-2023 Basic metabolic panel calcium total Harmeet Stallworth MD Work Phone: Start: 10-04-2023 Ecg routine ecg w/le ast 12 lds trcg only w/o i&r Michael Rico MD Work Phone: Start: 10-04-2023 Hemoglobin glycosylated a1c Michael Rico MD Work Phone: Start: 10-04-2023 Lipid 1996 panel - S verna or Plasma Joe Rocha MD Work Phone: Start: 06-06-2023 CT angiography of ne ck vessels Dr. Radha Khan Work Phone: Start: 03-15-2023 Fine needle aspirati on using ultrasound guidance Dr. Radha Khan Work Phone: Start: 02-18-2023 Local anesthetic lum bar epidural block Dr. Radha Khan Work Phone: Start: 02-18-2023 Fluoroscopy guided injection of cervical spinal nerve root Dr. Radah Khan Work Phone: Start: 02-18-2023 Injection of facet joint Dr. Radha Khan Work Phone: Start: 02-18-2023 X-ray of cervical spine Dr. Radha Khan Work Phone: Start: 01-07-[address] Armen Khan Work Phone: Start: 11-09-2022 US scan of thyroid Dr. Radha Khan Work Phone: Start: 11-07-2022 Plain chest X-ray Dr. Barney Khan Work Phone: Start: 10-12-2022 MRI of cervical spine Jenny Khan Work Phone: Start: 10-08-2022 Radiography of thora cic spine Dr. Radha Khan Work Phone: Start: 08-02-2022 MRI of brain without contrast Dr. Radha Khan Work Phone: Start: 08-01-2022 CT angiography of he ad and neck Dr. Radha Khan Work Phone: Start: 08-01-2022 Plain chest X-ray Dr. Barney Khan Work Phone: Start: 07-27-2022 X-ray of cervical spine Dr. Radha Khan Work Phone: Start: 04-27-2022 Plain chest X-ray Dr. Barney Khan Work Phone: Start: 04-17-2022 Radiography of thora cic spine Dr. Radha Khan Work Phone: Start: 09-04-2021 Plain chest X-ray Dr. Barney Khan Work Phone: Start: 08-14-2021 Radionuclide imaging of perfusion of myocardium under exercise stress Dr. Radha Khan Work Phone: Start: 06-19-2021 Plain chest X-ray Dr. Barney Khan Work Phone: Start: 09-21-2015 Thyrotropin [Units/v olume] in Serum or Plasma Oziel Culp MD Work Phone: Start: 12-27-2010 CONVERTED SURGICAL PATHOLOGY Karlos Aquino Work Phone: Plan of Treatment Date Care Activity Detail Author Start: 10-03-2028 Lipid panel Lipid Panel [facility] Start: 09-23-2025 Creatinine measurement Creatinine Level [facility] Start: 09-23-2025 Potassium measurement Potassium Level [facility] Start: 07-23-2025 Echocardiography Echocardiogram [facility] Start: 05-06-2025 Creatinine measurement Creatinine Level [facility] Start: 05-06-2025 Diabetes: Estimated Glomerular Filtration Rate for Kidney Health Diabetes: Estimated Glomerular Filtration Rate for Kidney Health [facility] Start: 05-06-2025 Potassium measurement Potassium Level [facility] Start: 12-04-2024 End: 12-04-2024 Patient encounter procedure 12/04/2024 1:00 PM EDT Office Visit [facility] [id number] [facility] [address] [place] [id number] [place] [address] [place] [address] [facility] Start: 10-04-2024 Creatinine measurement Creatinine Level [facility] Start: 10-04-2024 Diabetes: Estimated Glomerular Filtration Rate for Kidney Health Diabetes: Estimated Glomerular Filtration Rate for Kidney Health [facility] Start: 10-04-2024 Potassium measurement Potassium Level [facility] Start: 10-03-2024 Diabetes mellitus screening Diabetes Screening [facility] Start: 10-03-2024 Hemoglobin A1c measurement Diabetes: Hemoglobin A1C [facility] Start: 10-03-2024 Lipid panel Lipid Panel [facility] Start: 08-28-2024 End: 08-28-2025 DLCO / Diffusion Capacity DLCO / Diffusion Capacity PFT Routine ILD (interstitial lung disease) (Multi) Chronic respiratory failure with hypoxia Expected: 08/28/2024 (Approximate), Expires: 08/28/2025 [facility] Work Phone: Comment on above: Expected: 08/28/2024 (Approximate), Expi res: 08/28/2025 Start: 08-28-2024 End: 08-28-2025 Pulmonary Stress Test (6 Min. Walk) Pulmonary Stress Test (6 Min. Walk) PFT Routine ILD (interstitial lung disease) (Multi) Chronic respiratory failure with hypoxia Expected: 08/28/2024 (Approximate), Expires: 08/28/2025 [facility] Work Phone: Comment on above: Expected: 08/28/2024 (Approximate), Expi res: 08/28/2025 Start: 08-28-2024 End: 08-28-2025 Spirometry Pre/Post Bronchodilator Spirometry Pre/Post Bronchodilator PFT Routine ILD (interstitial lung disease) (Multi) Chronic respiratory failure with hypoxia Expected: 08/28/2024 (Approximate), Expires: 08/28/2025 [facility] Service Area Work Phone: Comment on above: Expected: 08/28/2024 (Approximate), Expi res: 08/28/2025 Start: 08-28-2024 End: 08-28-2024 Patient encounter procedure [facility] Start: 08-12-2024 X-ray of chest, PA and lateral views [facility] Start: 08-07-2024 End: 08-07-2025 DLCO / Diffusion Capacity DLCO / Diffusion Capacity PFT Routine ILD (interstitial lung disease) (Multi) Expected: 08/07/2024 (Approximate), Expires: 08/07/2025 [facility] Work Phone: Comment on above: Expected: 08/07/2024 (Approximate), Expi res: 08/07/2025 Start: 08-07-2024 End: 08-07-2025 Pulmonary Stress Test (6 Min. Walk) Pulmonary Stress Test (6 Min. Walk) PFT Routine ILD (interstitial lung disease) (Multi) Expected: 08/07/2024 (Approximate), Expires: 08/07/2025 [facility] Work Phone: Comment on above: Expected: 08/07/2024 (Approximate), Expi res: 08/07/2025 Start: 08-07-2024 End: 08-07-2025 Spirometry Pre/Post Bronchodilator Spirometry Pre/Post Bronchodilator PFT Routine ILD (interstitial lung disease) (Multi) Expected: 08/07/2024 (Approximate), Expires: 08/07/2025 [facility] Service Area Work Phone: Comment on above: Expected: 08/07/2024 (Approximate), Expi res: 08/07/2025 Start: 07-24-2024 End: 07-24-2024 Patient encounter procedure [facility] Start: 07-23-2024 End: 07-23-2024 Patient encounter procedure 07/23/2024 2:00 PM EDT Appointment [facility] [address] [place] [id number] [facility] Start: 07-19-2024 DTaP/Tdap/Td Vaccines (2 - Td or Tdap) DTaP/Tdap/Td Vaccines (2 - Td or Tdap) [facility] Start: 07-13-2024 End: 07-13-2024 Patient encounter procedure 07/13/2024 2:[address] [facility] [address] [place] [id number] [facility] Start: 06-26-2024 End: 06-26-2025 Aldolase [Enzymatic activity/volume] in Serum or Plasma Aldolase Lab Routine ILD (interstitial lung disease) (Multi) Expected: 06/26/2024 (Approximate), Expires: 06/26/2025 [facility] Work Phone: Comment on above: Expected: 06/26/2024 (Approximate), Expi res: 06/26/2025 Start: 06-26-2024 End: 06-26-2025 C reactive protein [Mass/volume] in Serum or Plasma C-Reactive Protein Lab Routine ILD (interstitial lung disease) (Multi) Expected: 06/26/2024 (Approximate), Expires: 06/26/2025 [facility] Work Phone: Comment on above: Expected: 06/26/2024 (Approximate), Expi res: 06/26/2025 Start: 06-26-2024 End: 06-26-2025 Complete Pulmonary Function Test (Spirometry/DLCO/Lung Volumes) Complete Pulmonary Function Test (Spirometry/DLCO/Lung Volumes) PFT Routine ILD (interstitial lung disease) (Multi) Expected: 06/26/2024 (Approximate), Expires: 06/26/2025 [facility] Work Phone: Comment on above: Expected: 06/26/2024 (Approximate), Expi res: 06/26/2025 Start: 06-26-2024 End: 06-26-2025 Creatine kinase [Enzymatic activity/volume] in Serum or Plasma Creatine Kinase Lab Routine ILD (interstitial lung disease) (Multi) Expected: 06/26/2024 (Approximate), Expires: 06/26/2025 [facility] Work Phone: Comment on above: Expected: 06/26/2024 (Approximate), Expi res: 06/26/2025 Start: 06-26-2024 End: 06-26-[address] chest high resolution Imaging Routine ILD (interstitial lung disease) (Multi) Expected: 06/26/2024 (Approximate), Expires: 06/26/2025 [facility] Service Area Work Phone: Comment on above: Expected: 06/26/2024 (Approximate), Expi res: 06/26/2025 Start: 06-26-2024 End: 06-26-2025 Cyclic citrullinated peptide IgG Ab [Units/volume] in Serum or Plasma Citrulline Antibody, IgG Lab Routine ILD (interstitial lung disease) (Multi) Expected: 06/26/2024 (Approximate), Expires: 06/26/2025 [facility] Work Phone: Comment on above: Expected: 06/26/2024 (Approximate), Expi res: 06/26/2025 Start: 06-26-2024 End: 06-26-2025 Erythrocyte sedimentation rate Sedimentation Rate Lab Routine ILD (interstitial lung disease) (Multi) Expected: 06/26/2024 (Approximate), Expires: 06/26/2025 [facility] Work Phone: Comment on above: Expected: 06/26/2024 (Approximate), Expi res: 06/26/2025 Start: 06-26-2024 End: 06-26-2025 Extended Myositis Panel Extended Myositis Panel Lab Routine ILD (interstitial lung disease) (Multi) Expected: 06/26/2024 (Approximate), Expires: 06/26/2025 [facility] Work Phone: Comment on above: Expected: 06/26/2024 (Approximate), Expi res: 06/26/2025 Start: 06-26-2024 End: 06-26-2025 Hypersensitivity Pneumonitis Panel Hypersensitivity Pneumonitis Panel Lab Routine ILD (interstitial lung disease) (Multi) Expected: 06/26/2024 (Approximate), Expires: 06/26/2025 [facility] Work Phone: Comment on above: Expected: 06/26/2024 (Approximate), Expi res: 06/26/2025 Start: 06-26-2024 End: 06-26-2025 MPO, PR3 with Reflex to ANCA MPO, PR3 with Reflex to ANCA Lab Routine ILD (interstitial lung disease) (Multi) Expected: 06/26/2024 (Approximate), Expires: 06/26/2025 [facility] Work Phone: Comment on above: Expected: 06/26/2024 (Approximate), Expi res: 06/26/2025 Start: 06-26-2024 End: 06-26-2025 Nuclear Ab [Presence] in Serum by Hep2 substrate RICARDO with Reflex to NEELA Lab Routine ILD (interstitial lung disease) (Multi) Expected: 06/26/2024 (Approximate), Expires: 06/26/2025 [facility] Work Phone: Comment on above: Expected: 06/26/2024 (Approximate), Expi res: 06/26/2025 Start: 06-26-2024 End: 06-26-2025 Pulmonary Stress Test (6 Min. Walk) Pulmonary Stress Test (6 Min. Walk) PFT Routine ILD (interstitial lung disease) (Multi) Expected: 06/26/2024 (Approximate), Expires: 06/26/2025 [facility] Work Phone: Comment on above: Expected: 06/26/2024 (Approximate), Expi res: 06/26/2025 Start: 06-26-2024 End: 06-26-2025 Rheumatoid factor [Units/volume] in Serum by Nephelometry Rheumatoid Factor Lab Routine ILD (interstitial lung disease) (Multi) Expected: 06/26/2024 (Approximate), Expires: 06/26/2025 [facility] Work Phone: Comment on above: Expected: 06/26/2024 (Approximate), Expi res: 06/26/2025 Start: 06-26-2024 End: 06-26-2026 US Heart Transthoracic Transthoracic Echo (TTE) Complete Echocardiography Routine Pulmonary hypertension (Multi) Expected: 06/26/2024 (Approximate), Expires: 06/26/2026 [facility] Work Phone: Comment on above: Expected: 06/26/2024 (Approximate), Expi res: 06/26/2026 Start: 05-06-2024 End: 05-06-2024 Patient encounter procedure 05/06/2024 10:00 AM EST Appointment [facility] [address] [place] [address] [facility] Start: 04-27-2024 End: 04-27-2024 Patient encounter procedure 04/27/2024 3:00 PM EST Office Visit [facility] [place] [address] [place] [id number] Suzy Jauregui MD [address] [place], [place] [id number] [facility] [place] Start: 04-25-2024 Patient discharge [facility] Start: 04-24-2024 Dual pressure spontaneous ventilation support [facility] Start: 04-24-2024 Aspiration precautions [facility] Start: 04-24-2024 Assessment of risk of venous thromboembolism [facility] Start: 04-24-2024 Cardiac monitoring [facility] Start: 04-24-2024 Care regimes management [facility] Start: 04-24-2024 Catheterization of vein [facility] Start: 04-24-2024 Consultation [facility] Start: 04-24-2024 Continuous pulse oximetry [facility] Start: 04-24-2024 Elevation of head of bed [facility] Start: 04-24-2024 Exercises [facility] Start: 04-24-2024 Fall prevention [facility] Start: 04-24-2024 Inhalation therapy procedure [facility] Start: 04-24-2024 Insertion of catheter into peripheral vein [facility] Start: 04-24-2024 Introduction of urinary catheter [facility] Start: 04-24-2024 Measuring intake and output [facility] Start: 04-24-2024 Notification of physician [facility] Start: 04-24-2024 Oxygen therapy [facility] Start: 04-24-2024 Patient referral to dietitian [facility] Start: 04-24-2024 Providing care according to standard [facility] Start: 04-24-2024 Provision of activity privileges [facility] Start: 04-24-2024 Referral to occupational therapist [facility] Start: 04-24-2024 Referral to service [facility] Start: 04-24-2024 Speech therapy assessment [facility] Start: 04-24-2024 Telemedicine consultation with patient [facility] Start: 04-24-2024 Tobacco use cessation education [facility] Start: 04-24-2024 End: 04-24-2024 [facility] Start: 04-24-2024 Following clinical pathway protocol [facility] Start: 04-24-2024 Admission procedure [facility] Start: 04-24-2024 Patient referral to dietitian [facility] Start: 04-24-2024 [facility] Start: 04-15-2024 Referral to service [facility] Start: 04-15-2024 Patient discharge [facility] Start: 04-15-2024 Fluid restriction [facility] Start: 04-14-2024 [facility] Start: 04-13-2024 Consultation [facility] Start: 04-13-2024 [facility] Start: 04-13-2024 Elevation of head of bed [facility] Start: 04-13-2024 Patient education [facility] Start: 04-13-2024 [facility] Start: 04-12-2024 Following clinical pathway protocol [facility] Start: 04-12-2024 Ambulation without limitation [facility] Start: 04-12-2024 Assessment of risk of venous thromboembolism [facility] Start: 04-12-2024 Care regimes management [facility] Start: 04-12-2024 Catheterization of vein [facility] Start: 04-12-2024 Elevation of affected extremity [facility] Start: 04-12-2024 Inhalation therapy procedure [facility] Start: 04-12-2024 Insertion of catheter into peripheral vein [facility] Start: 04-12-2024 Measuring intake and output [facility] Start: 04-12-2024 Notification of physician [facility] Start: 04-12-2024 Oxygen therapy [facility] Start: 04-12-2024 Patient education [facility] Start: 04-12-2024 Providing care according to standard [facility] Start: 04-12-2024 End: 04-12-2024 [facility] Start: 04-12-2024 Admission procedure [facility] Start: 04-12-2024 Patient referral to dietitian [facility] Start: 02-13-2024 End: 02-12-2025 RFA Cerebral arteries Bilateral Views W contrast IA IR angiogram cerebral with possible intervention Imaging Routine Ischemic cerebrovascular accident (CVA) (HCC) Bilateral carotid artery stenosis Expected: 02/13/2024, Expires: 02/12/2025 [facility] Work Phone: Comment on above: Expected: 02/13/2024, Expires: Start: 01-22-2024 Subsequent hospital visit by physician 01/22/2024 10:45 AM EDT Hospital Encounter [facility] [address] [place] [address] Oziel Culp MD [address] [place] [address] [facility] [address] Start: 01-20-2024 End: 01-05-2025 CTA Head vessels and Neck vessels WO and W contrast IV CTA head neck angio w and wo IV contrast Imaging Routine Bilateral carotid artery stenosis Ischemic cerebrovascular accident (CVA) (HCC) Expected: 01/20/2024, Expires: 01/05/2025 [facility] Work Phone: Comment on above: Expected: 01/20/2024, Expires: Start: 01-16-2024 End: 01-15-2025 Creatinine [Mass/volume] in Serum or Plasma Creatinine, Serum Lab Routine Chronic kidney disease, unspecified CKD stage Expected: 01/16/2024 (Approximate), Expires: 01/15/2025 [facility] Work Phone: Comment on above: Expected: 01/16/2024 (Approximate), Expi res: 01/15/2025 Start: 12-01-2023 Influenza vaccination Influenza Vaccine (#1) [facility] Start: 2023 RSV Immunization aged 60 or older (1 - 1-dose 60+ series) RSV Immunization aged 60 or older (1 - 1-dose 60+ series) [facility] Start: 2023 RSV Immunization for Adults (1 - Risk 60-74 years 1-dose series) RSV Immunization for Adults (1 - Risk 60-74 years 1-dose series) [facility] Start: 07-03-2023 Patient referral [facility] Work Phone: Start: 02-18-2023 Anesthesia cervical spine & cord nos ANESTH SPINE CORD SURGERY [facility] Start: 02-18-2023 Njx dx/ther agt pvrt facet jt crv/thrc 1 level INJ PARAVERT F JNT C/T 1 [facility] Start: 02-18-2023 Njx dx/ther agt pvrt facet jt crv/thrc 2nd level INJ PARAVERT F JNT C/T 2 [facility] Start: 02-18-2023 Njx dx/ther agt pvrt facet jt crv/thrc 3+ level INJ PARAVERT F JNT C/T 3 [facility] Start: 02-18-2023 Fluoroscopy guided injection of cervical spinal nerve root OR-Steroid Inj/Cer Thor/1st L [facility] Start: 02-18-2023 Injection of facet joint [facility] Start: 02-18-2023 X-ray of cervical spine Cerv Spine 4 or 5 Views [facility] Start: 02-18-2023 Patient discharge [facility] Start: 12-10-2022 Patient referral [facility] Work Phone: Start: 10-08-2022 Patient referral [facility] Work Phone: Start: 08-03-2022 Patient discharge [facility] Start: 08-03-2022 Referral to occupational therapist [facility] Start: 08-03-2022 Referral to service [facility] Start: 08-02-2022 [facility] Start: 08-02-2022 Following clinical pathway protocol [facility] Start: 08-02-2022 Assessment of risk of venous thromboembolism [facility] Start: 08-02-2022 Cardiac monitoring [facility] Start: 08-02-2022 Care regimes management [facility] Start: 08-02-2022 Catheterization of vein [facility] Start: 08-02-2022 Elevation of head of bed [facility] Start: 08-02-2022 Exercises [facility] Start: 08-02-2022 Fall prevention [facility] Start: 08-02-2022 Implementation of planned interventions [facility] Start: 08-02-2022 Inhalation therapy procedure [facility] Start: 08-02-2022 Insertion of catheter into peripheral vein [facility] Start: 08-02-2022 Introduction of urinary catheter [facility] Start: 08-02-2022 Measuring intake and output [facility] Start: 08-02-2022 Notification of physician [facility] Start: 08-02-2022 Oxygen therapy [facility] Start: 08-02-2022 End: 08-02-2022 Patient referral to dietitian [facility] Start: 08-02-2022 Providing care according to standard [facility] Start: 08-02-2022 Provision of activity privileges [facility] Start: 08-02-2022 Referral to occupational therapist [facility] Start: 08-02-2022 Referral to service [facility] Start: 08-02-2022 Speech therapy assessment [facility] Start: 08-02-2022 Tobacco use cessation education [facility] Start: 08-02-2022 [facility] Start: 08-01-2022 Admission procedure [facility] Start: 08-14-2021 Radionuclide imaging of perfusion of myocardium under exercise stress Nuclear Stress Test - [facility] Work Phone: Start: 06-20-2021 Patient discharge [facility] Work Phone: Start: 06-19-2021 Following clinical pathway protocol [facility] Work Phone: Start: 06-19-2021 Care regimes management [facility] Work Phone: Start: 06-19-2021 Notification of physician [facility] Work Phone: Start: 06-19-2021 End: 06-19-2021 [facility] Work Phone: Start: 06-19-2021 Admission procedure [facility] Work Phone: Start: 08-05-2020 COVID-19 Vaccine (3 - Moderna risk series) COVID-19 Vaccine (3 - Moderna risk series) [facility] Start: 07-03-2020 PROSTATE CANCER SCREENING DISCUSSION PROSTATE CANCER SCREENING DISCUSSION [facility] Start: 12-01-2019 Influenza vaccination INFLUENZA (#1) [facility] Start: 09-20-2016 Thyroid stimulating hormone measurement TSH Level [facility] Start: 09-09-2016 [object Object] DIABETIC FOOT EXAM [facility] Start: 12-12-2015 HbA1c (Bld) [Mass fraction] HBA1C [facility] Start: 12-07-2015 Pneumococcal vaccination Pneumococcal Vaccine (2 of 2 - PCV) [facility] Start: 12-07-2015 Pneumococcal Vaccine: 50+ Years (2 of 2 - PCV) Pneumococcal Vaccine: 50+ Years (2 of 2 - PCV) [facility] Start: 12-07-2015 Pneumococcal Vaccine: Pediatrics (0 to 5 Years) and At-Risk Patients (6 to 64 Years) (2 of 2 - PCV) Pneumococcal Vaccine: Pediatrics (0 to 5 Years) and At-Risk Patients (6 to 64 Years) (2 of 2 - PCV) [facility] Start: 08-24-2013 SHINGRIX VACCINE (1 of 2) SHINGRIX VACCINE (1 of 2) [facility] Start: 08-24-2013 Tuberculosis screening COLORECTAL CANCER SCREENING,SEE MODIFIER [facility] Start: 03-10-2009 MMR Vaccines (1 of 1 - Standard series) MMR Vaccines (1 of 1 - Standard series) [facility] Start: 08-24-1982 Urine microalbumin profile DTAP,TDAP,TD (1 - Tdap) [facility] Start: 08-24-1981 ANNUAL PCP TEAM CHRONIC DISEASE VISIT ANNUAL PCP TEAM CHRONIC DISEASE VISIT [facility] Start: 08-24-1981 BP CONTROLLED (<130/80) BP CONTROLLED (<130/80) [facility] Start: 08-24-1981 Diabetes: Urine Albumin-Creatinine Ratio for Kidney Health Diabetes: Urine Albumin-Creatinine Ratio for Kidney Health [facility] Start: 08-24-1981 Hepatitis B surface antibody level LDL CHOLESTEROL [facility] Start: 08-24-1981 HEPATITIS C SCREENING HEPATITIS C SCREENING [facility] Start: 08-24-1981 Hepatitis C screening Hepatitis C Screening [facility] Start: 08-24-1981 HIV SCREENING HIV SCREENING [facility] Start: 1975 Depression Screening Depression Screening [facility] Start: 08-24-1973 Diabetic foot examination Diabetes: Foot Exam [facility] Start: 08-24-1973 Glaucoma screening Diabetes: Retinopathy Screening [facility] Start: 08-24-1973 Hepatitis B screening URINE ALBUMIN:CREATININE RATIO [facility] Start: 08-24-1973 Hepatitis C antibody, confirmatory test DILATED RETINAL EXAM [facility] Start: 08-24-1973 Preventive dental service Diabetes: Dental Exam [facility] Start: 1963 Creatinine measurement Creatinine Level [facility] Start: 1963 Echocardiography Echocardiogram [facility] Start: 1963 HIV screening HIV Screening [facility] Start: 1963 Potassium measurement Potassium Level [facility] Start: 1963 Screening for malignant neoplasm of colon [facility] Start: 1963 Skin Cancer Screening Skin Cancer Screening [facility] Start: 1963 Thyroid stimulating hormone measurement TSH Level [facility] Start: 1963 Yearly Adult Physical Yearly Adult Physical [facility] Aspergillus Galactom vicenta EIA (Non-Blood Specimen) [facility] Work Phone: Comment on above: Release Upon Ordering for 1 Occurrences starting 09/24/2024 Bacteria identified in Unspecified specimen by Respiratory culture Respiratory Culture/Smear Microbiology Routine ILD (interstitial lung disease) ([facility]) 09/24/2024 8:39 AM EDT [facility] Work Phone: CBC W Auto Different ial panel - Blood [facility] End: 07-24-2024 Complete Pulmonary Function Test (Spirometry/DLCO/Lung Volumes) [facility] Work Phone: Comment on above: Once for 1 Occurrences starting 07/25/19 until 07/24/2024 DLCO / Diffusion Capacity DLCO / Diffusion Capacity PFT Routine ILD (interstitial lung disease) (Multi) 08/18/2024 10:39 AM EDT [facility] Work Phone: ECG 12 lead ECG 12 lead CV E CG Routine 05/06/2024 9:00 AM EST [facility] Work Phone: Ferritin [Mass/volum e] in Serum or Plasma [facility] Folate [Mass/volume] in Serum or Plasma [facility] Fungus identified in Unspecified specimen by Culture [facility] Work Phone: Comment on above: Release Upon Ordering for 1 Occurrences starting 09/24/2024 Hepatic function panel [facility] Histoplasma capsulat um Ag [Units/volume] in Serum by Immunoassay [facility] Work Phone: Comment on above: Release Upon Ordering for 1 Occurrences starting 09/24/2024 Iron and Iron bindin g capacity panel - Serum or Plasma [facility] [place] and lambda lig ht chains [facility] Legionella PCR Panel [facility] Work Phone: Comment on above: Release Upon Ordering for 1 Occurrences starting 09/24/2024 Lipid 1996 panel - S verna or Plasma [facility] Lipid 1995 panel - S verna or Plasma [facility] Mycobacterium sp identified in Unspecified specimen by Organism specific culture [facility] Work Phone: Comment on above: Release Upon Ordering for 1 Occurrences starting 09/24/2024, 1 completed NM Heart Views W str ess and W radionuclide IV [facility] Work Phone: Non-gynecological cytology method study [facility] Work Phone: Comment on above: Release Upon Ordering for 1 Occurrences starting 09/24/2024, 1 completed End: 09-24-2024 Pathologist review of results [facility] Work Phone: Comment on above: Once (Lab) for 1 Occurrences starting until 09/24/2024, 1 completed Patient Education [facility] Work Phone: Patient referral [facility] Work Phone: End: 07-24-2024 Pulmonary Stress Test (6 Min. Walk) [facility] Work Phone: Comment on above: Once for 1 Occurrences starting 07/25/19 until 07/24/2024 Pulmonary Stress Karly t (6 Min. Walk) Pulmonary Stress Test (6 Min. Walk) PFT Routine ILD (interstitial lung disease) (Multi) 08/18/2024 11:30 AM EDT [facility] Service Area Work Phone: Reticulocyte count [facility] Spirometry Pre/Post Bronchodilator Spirometry Pre/Post Bronchodilator PFT Routine ILD (interstitial lung disease) (Multi) 08/18/2024 11:36 AM EDT [facility] Service Area Work Phone: Surgical pathology study [facility] Work Phone: Comment on above: Release Upon Ordering for 1 Occurrences starting 09/24/2024, 1 completed End: 09-24-2024 T-cell subsets CD4 and CD8 panel - Blood [facility] Work Phone: Comment on above: Release Upon Ordering for 1 Occurrences starting 09/24/2024 Once for 1 Occurrenc es starting 09/24/2024 until 09/24/2024 T4 free measurement [facility] T4 free measurement [facility] T4 free measurement [facility] Thiamine measurement [facility] Thyroid stimulating hormone measurement [facility] Thyroid stimulating hormone measurement [facility] Thyroid stimulating hormone measurement [facility] US Carotid arteries [facility] Work Phone: US Carotid arteries [facility] US Carotid arteries [facility] End: 07-23-2024 US Heart Transthoracic [facility] Work Phone: Comment on above: Once for 1 Occurrences starting 07/24/19 25 until 07/23/2024 Vitamin B12 measurement [facility] Immunizations Immunization Date Immunization Notes Care Provider Lv magdaleno 01-13-2024 RSV Adult Recombinan t (Arexvy) Dr. Radha Khan MD Work Phone: [facility] 01-10-2024 influenza, seasonal, injectable, preservative free Dr. Radha Khan MD Work Phone: [facility] 01-18-2023 influenza virus vacc ine, unspecified formulation CHITO ESCUDERO [facility] 01-18-2023 influenza, injectabl e, quadrivalent, preservative free Oziel Culp MD Work Phone: [facility] 02-01-2022 zoster vaccine recombinant 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 [facility] 01-26-2022 influenza virus vacc ine, unspecified formulation 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 [facility] 01-26-2022 influenza, injectabl e, quadrivalent, contains preservative Oziel Culp MD Work Phone: [facility] 01-26-2022 influenza, injectabl e, quadrivalent, preservative free Dr. Radha Khan Work Phone: [facility] 01-26-2022 influenza, seasonal, injectable Dr. Radha Khan Work Phone: [facility] 01-16-2021 zoster vaccine recombinant 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 [facility] 01-06-2021 influenza virus vacc ine, unspecified formulation 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 [facility] 01-06-2021 influenza, injectabl e, quadrivalent, contains preservative Oziel Culp MD Work Phone: [facility] 11-30-2020 influenza, injectabl e, quadrivalent, preservative free Dr. Radha Khan Work Phone: [facility] 11-30-2020 influenza, seasonal, injectable Dr. Radha Khan Work Phone: [facility] 07-08-2020 Covid (Moderna) Dr. Radha fuller Work Phone: [facility] 06-10-2020 Tayid (Moderna) Dr. 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 Radha Khan Work Phone: [facility] 12-24-2017 influenza, seasonal, injectable Dr. 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 [facility] 12-24-2014 influenza, seasonal, injectable Oziel Culp MD Work Phone: [facility] 12-06-2014 pneumococcal polysaccharide vaccine, 23 valent 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 [facility] 07-19-2014 tetanus toxoid, redu federica diphtheria toxoid, and acellular pertussis vaccine, adsorbed 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 MED Member Subscriber Plan / Payer (Effective 2024-Present) Name: Krunal Leos Relation to Subscriber: Self Name: Krunal Leos Payer ID: Not on file Type: Not on file Address: [address] [place] [id number] [id number] 09-19-2023 Self-pay [id number] 07-31-2023 Commercial Managed C are - HMO [id number] 07-31-2023 Unknown MEDICAL MUTUAL M MO SUPERMED [id number] 07/31/2023-Present [address] [place] [address] Commercial [id number] 02-27-2023 Unknown [id number] 10-30-2014 Unknown [id number] 07-30-2009 Unknown THP [facility] THP HMO [id number] 07/30/2009-Present HMO [id number] 07-30-1996 Unknown THP [employer] HMO [id number] 07/30/1996-03/31/2015 HMO [id number]. [id number] 1965 Unknown [id number] 2.16840.1.800297.3.579.2. 627 1963 Unknown [id number] 2.16840.1.816958.3.579.2. 1241 1963 Unknown [id number] 2.840.1.799191.3.579.2. 1246 1963 Unknown [id number] 2.840.1.944256.3.579.2. 1242 1963 Unknown [id number] 2.16840.1.778457.3.579.2. 1242 1963 Unknown [id number] 2.16840.1.881864.3.579.2. 1244 1963 Unknown [id number] 2.840.1.630046.3.579.2. 1244 1963 Unknown [id number] 2.16840.1.774199.3.579.2. 1244 1963 Unknown [id number] 2.16840.1.781304.3.579.2. 1244 1963 Unknown [id number] 2.16840.1.370830.3.579.2. 1244 1963 Unknown [id number] 2.16840.1.940183.3.579.2. 1244 1963 Unknown [id number] 2.16.840.1.969122.3.579.2. 1245 1963 Unknown [id number] 2.16.840.1.148690.3.579.2. 1245 Unknown [id number] Unknown [id number] 2.16.840.1.353803.3.579.2. 462 Unknown [id number] 2.16.840.1.469378.3.579.2. 462 Unknown [id number] 2.16.840.1.734605.3.579.2. 462 Unknown [id number] 2.16.840.1.967491.3.579.2. 462 Unknown [id number] 2.16.840.1.716286.3.579.2. 462 Unknown [id number] 2.16.840.1.999542.3.579.2. 462 Unknown [id number] 2.16.840.1.338841.3.579.2. 462 Unknown [id number] 2.16.840.1.743147.3.579.2. 462 Unknown [id number] 2.16.840.1.301688.3.579.2. 462 Unknown [id number] 2.16.840.1.041622.3.579.2. 462 Unknown [id number] 2.16.840.1.200120.3.579.2. 462 Unknown [id number] 2.16.840.1.836283.3.579.2. 462 Unknown [id number] 2.16.840.1.629794.3.579.2. 462 Unknown [id number] 2.16.840.1.283780.3.579.2. 462 Unknown [id number] 2.16.840.1.149645.3.579.2. 462 Unknown [id number] 2.16.840.1.086674.3.579.2. 462 Unknown [id number] 2.16.840.1.933701.3.579.2. 462 Unknown [id number] 2.16.840.1.858602.3.579.2. 462 Unknown [id number] 2.16.840.1.823014.3.579.2. 462 Unknown [id number] 2.16.840.1.752302.3.579.2. 462 Unknown [id number] 2.16.840.1.952980.3.579.2. 462 Unknown [id number] 2.16840.1.667664.3.579.2. 462 Unknown [id number] 2.16.840.1.255904.3.579.2. 462 Unknown [id number] 2.840.1.946606.3.579.2. 462 Unknown [id number] 2.840.1.607705.3.579.2. 462 Unknown [id number] 2.16840.1.538374.3.579.2. 462 Unknown [id number] 2.16840.1.998155.3.579.2. 462 Unknown [id number] 2.16840.1.603521.3.579.2. 462 Unknown [id number] 2.840.1.143291.3.579.2. 462 Unknown [id number] 2.16840.1.740700.3.579.2. 462 Unknown [id number] 2.16.840.1.145888.3.579.2. 462 Unknown [id number] 2.16.840.1.450123.3.579.2. 462 Unknown [id number] 2.16840.1.184005.3.579.2. 462 Unknown [id number] 2.16840.1.522218.3.579.2. 462 Unknown [id number] 2.16.840.1.060434.3.579.2. 462 Unknown [id number] 2.16.840.1.264582.3.579.2. 462 Unknown [id number] 2.16.840.1.048552.3.579.2. 462 Unknown [id number] 2.16.840.1.658279.3.579.2. 462 Unknown [id number] 2.16.840.1.225386.3.579.2. 462 Unknown [id number] 2..840.1.567329.3.579.2. 462 Unknown [id number] 2.840.1.415906.3.579.2. 462 Unknown [id number] 2.840.1.736786.3.579.2. 462 Unknown [id number] 2.840.1.969133.3.579.2. 462 Unknown [id number] 2.840.1.454996.3.579.2. 462 Unknown [id number] 2.840.1.000455.3.579.2. 462 Unknown [id number] 2..840.1.970470.3.579.2. 462 Unknown [id number] 2.840.1.570392.3.579.2. 462 Unknown [id number] 2.840.1.571221.3.579.2. 462 Unknown [id number] 2.16.840.1.921336.3.579.2. 462 Unknown [id number] 2.840.1.946366.3.579.2. 462 Unknown [id number] 2.16.840.1.494224.3.579.2. 462 Unknown [id number] 2.16.840.1.185789.3.579.2. 462 Unknown [id number] 2.840.1.596927.3.579.2. 462 Unknown [id number] 2.840.1.995414.3.579.2. 462 Unknown [id number] 2.16840.1.038669.3.579.2. 462 Unknown [id number] 2.840.1.054540.3.579.2. 462 Unknown [id number] 2.840.1.748463.3.579.2. 462 Unknown [id number] 2.840.1.060930.3.579.2. 462 Unknown [id number] 2.840.1.881889.3.579.2. 462 Unknown [id number] 2.840.1.226023.3.579.2. 462 Unknown [id number] 2.840.1.788687.3.579.2. 462 Unknown [id number] 2.840.1.918196.3.579.2. 462 Unknown [id number] .840.1.566456.3.579.2. 462 Unknown [id number] .840.1.287139.3.579.2. 462 Unknown [id number] 2.840.1.559933.3.579.2. 462 Unknown [id number] 2.840.1.416356.3.579.2. 462 Unknown [id number] 2.840.1.034500.3.579.2. 462 Unknown [id number] 2.840.1.339588.3.579.2. 462 Unknown [id number] 2.840.1.955199.3.579.2. 462 Unknown [id number] 2.840.1.835036.3.579.2. 462 Unknown [id number] 2.840.1.634495.3.579.2. 462 Unknown [id number] 2.16840.1.305714.3.579.2. 462 Unknown [id number] 2.16840.1.012672.3.579.2. 462 Unknown [id number] 2.16.840.1.510643.3.579.2. 462 Unknown [id number] 2.16840.1.626444.3.579.2. 462 Unknown [id number] 2.840.1.457156.3.579.2. 462 Unknown [id number] 2.840.1.485268.3.579.2. 462 Unknown [id number] 2.840.1.080792.3.579.2. 462 Unknown [id number] 2.840.1.084777.3.579.2. 462 Unknown [id number] 2.840.1.486782.3.579.2. 462 Unknown [id number] 2.840.1.077449.3.579.2. 462 Unknown [id number] 2.840.1.654443.3.579.2. 462 Unknown [id number] 2.840.1.312293.3.579.2. 462 Unknown [id number] 2.840.1.997293.3.579.2. 462 Unknown [id number] 2.840.1.224350.3.579.2. 462 Unknown [id number] 2.840.1.668578.3.579.2. 462 Unknown [id number] 2.840.1.184661.3.579.2. 462 Unknown [id number] 2.840.1.447313.3.579.2. 462 Unknown [id number] 2.840.1.903188.3.579.2. 462 Unknown [id number] 2.840.1.061987.3.579.2. 462 Unknown [id number] 2.16.840.1.333547.3.579.2. 462 Unknown [id number] 2.16.840.1.729398.3.579.2. 462 Unknown [id number] 2.16.840.1.542708.3.579.2. 462 Unknown [id number] 2.16.840.1.493978.3.579.2. 462 Unknown [id number] 2.16.840.1.514905.3.579.2. 462 Social History Date Type Detail Facility Start: 06-14-2007 End: 06-26-2024 Tobacco smoking status NHIS Never smoker [facility] Start: 06-14-2007 Alcohol intake Not Asked [facility] Start: 1965 Sex Assigned At Not on file [facility] Start: 07-16-2021 End: 07-17-2023 Tobacco smoking status TNIS Unknown if ever smoked [facility] Start: 03-28-2020 None [facility] Start: 03-28-2020 Spouse/ Significant Other [facility] Start: 04-20-2018 Non-smoker [facility] Start: 1965 Sex Assigned At Male [facility] Start: 10-03-2023 Gender identity Identifies as male gender (finding) [facility] Start: 01-06-2024 End: 09-24-2024 Sexual orientation Not on file [facility] Start: 01-06-2024 Tobacco use and exposure Smokeless tobacco non-user [facility] Start: 01-06-2024 End: 05-06-2024 Alcoholic beverage intake Ex-drinker (finding) [facility] Start: 01-06-2024 End: 09-24-2024 History of Social function [facility] Start: 10-03-2023 Sex Male (finding) [facility] Start: 06-26-2024 End: 09-24-2024 Alcoholic beverage intake Lifetime non-drinker (finding) [facility] Work Phone: Start: 05-22-2024 Sexual orientation Heterosexual (finding) [facility] Work Phone: Start: 06-16-2024 End: 08-28-2024 Exposure to SARS-CoV-2 (event) Not sure [facility] How often to you hav e a drink containing alcohol? Never [facility] Work Phone: How many standard drinks containing alcohol do you have on a typical day? Patient does not drink [facility] Work Phone: Medical Equipment Procedure Code Equipment Code Equipment Origin al Text Equipment Identifier Dates Colonoscopy [id number] Start: 03-27-2024 Stent Inlay Opti ma 7fr Taper [place] Green Phreecoat Polymer 28cm [facility] - [id number] Start: 09-06-2015 Pen Needle, Diab etic (Bd Ultra-Fine Kiki Pen Needle) 32 gauge x 5/32 needle Start: 06-01-2021 Pen Needle, Diab etic (Bd Ultra-Fine Kiki Pen Needle) 32 gauge x 5/32 needle Start: 06-01-2021 Pen Needle, Diab etic (Bd Ultra-Fine Kiki Pen Needle) 32 gauge x 5/32 needle Start: 06-01-2021 Pen Needle, Diab etic (Bd Ultra-Fine Kiki Pen Needle) 32 gauge x 5/32 needle Start: 06-01-2021 Pen Needle, Diab etic (Bd Ultra-Fine Kiki Pen Needle) 32 gauge x 5/32 needle Start: 06-01-2021 Pen Needle, Diab etic (Bd Ultra-Fine Kiki Pen Needle) 32 gauge x 5/32 needle Start: 06-01-2021 Pen Needle, Diab etic (Bd Ultra-Fine Kiki Pen Needle) 32 gauge x 5/32 needle Start: 06-01-2021 Pen Needle, Diab etic (Bd Ultra-Fine Kiki Pen Needle) 32 gauge x 5/32 needle Start: 06-01-2021 Pen Needle, Diab etic (Bd Ultra-Fine Kiki Pen Needle) 32 gauge x 5/32 needle Start: 06-01-2021 Pen Needle, Diab etic (Bd Ultra-Fine Kiki Pen Needle) 32 gauge x 5/32 needle Start: 06-01-2021 Pen Needle, Diab etic (Bd Ultra-Fine Kiki Pen Needle) 32 gauge x 5/32 needle Start: 06-01-2021 Pen Needle, Diab etic (Bd Ultra-Fine Kiki Pen Needle) 32 gauge x 5/32 needle Start: 06-01-2021 Pen Needle, Diab etic (Bd Ultra-Fine Kiki Pen Needle) 32 gauge x 5/32 needle Start: 06-01-2021 Pen Needle, Diab etic (Bd Ultra-Fine Kiki Pen Needle) 32 gauge x 5/32 needle Start: 06-01-2021 Pen Needle, Diab etic (Bd Ultra-Fine Kiki Pen Needle) 32 gauge x 5/32 needle Start: 06-01-2021 Pen Needle, Diab etic (Bd Ultra-Fine Kiki Pen Needle) 32 gauge x 5/32 needle Start: 06-01-2021 Pen Needle, Diab etic (Bd Ultra-Fine Kiki Pen Needle) 32 gauge x 5/32 needle Start: 06-01-2021 Pen Needle, Diab etic (Bd Ultra-Fine Kiki Pen Needle) 32 gauge x 5/32 needle Start: 06-01-2021 Pen Needle, Diab etic (Bd Ultra-Fine Kiki Pen Needle) 32 gauge x 5/32 needle Start: 06-01-2021 Pen Needle, Diab etic (Bd Ultra-Fine Kiki Pen Needle) 32 gauge x 5/32 needle Start: 06-01-2021 Pen Needle, Diab etic (Bd Ultra-Fine Kiki Pen Needle) 32 gauge x 5/32 needle Start: 06-01-2021 Pen Needle, Diab etic (Bd Ultra-Fine Kiki Pen Needle) 32 gauge x 5/32 needle Start: 06-01-2021 Pen Needle, Diab etic (Bd Ultra-Fine Kiki Pen Needle) 32 gauge x 5/32 needle Start: 06-01-2021 Pen Needle, Diab etic (Bd Ultra-Fine Kiki Pen Needle) 32 gauge x 5/32 needle Start: 06-01-2021 Pen Needle, Diab etic (Bd Ultra-Fine Kiki Pen Needle) 32 gauge x 5/32 needle Start: 06-01-2021 Pen Needle, Diab etic (Bd Ultra-Fine Kiki Pen Needle) 32 gauge x 5/32 needle Start: 06-01-2021 Pen Needle, Diab etic (Bd Ultra-Fine Kiki Pen Needle) 32 gauge x 5/32 needle Start: 06-01-2021 Pen Needle, Diab etic (Bd Ultra-Fine Kiki Pen Needle) 32 gauge x 5/32 needle Start: 06-01-2021 Device Clsr Mynx poultry inspector 5fr chloe - [id number]_[id number] Start: 05-06-2024 Pen Needle, Diab etic (Bd Ultra-Fine Kiki Pen Needle) 32 gauge x 5/32 needle Start: 06-01-2021 End: 04-30-2024 Pen Needle, Diab etic 31 gauge x 5/16 needle Start: 12-22-2020 End: 04-30-2024 Pen Needle, Diab etic (Bd Ultra-Fine Kiki Pen Needle) 32 gauge x 5/32 needle Start: 06-01-2021 End: 04-30-2024 Pen Needle, Diab etic 31 gauge x 5/16 needle Start: 12-22-2020 End: 04-30-2024 Goals Date Patient Goal Desired Activity /State Functional Status Date Assessment Result Facility 09-24-2024 [place] - suicide severity rating scale screener - recent [C-SSRS] [facility] Work Phone: 08-07-2024 Total score [AUDIT-C] 0 08/08/19 2:09 PM Rivka Cagle MA [facility] Work Phone: 04-25-2024 Functional status Ambulates [facility] [place] [facility] Work Phone: 04-15-2024 Functional status Ambulates;[facility] Work Phone: 10-03-2023 Functional Status Room check performed [facility] 10-03-2023 Functional Status [facility] 10-03-2023 Functional Status [facility] 10-03-2023 Functional Status bilateral knee high removed/off [facility] 10-02-2023 Functional Status [facility] 10-02-2023 Functional Status Demonstrates C orrect Call Light Use Yes [facility] 10-02-2023 Functional Status [facility] 10-02-2023 Functional Status [facility] Functional Status None Jarred Ho [facility] 08-03-2022 Functional status Ambulates [facility] Work Phone: 06-20-2021 Functional status Up ad harini [facility] Work Phone: [facility] Work Phone: Mental Status Date Assessment Result Facility 04-25-2024 Cognitive function Voice/Name [facility] Work Phone: 04-15-2024 [facility] Work [facility]: 10-03-2023 Mental Status Oriented x 4 [facility] 10-02-2023 Mental Status [facility] 10-02-2023 Mental Status [facility] 02-18-2023 Cognitive function Voice/Name [facility] Work Phone: 08-03-2022 Cognitive function Awake;Alert;A ppropriate;Fo llows Commands;Responds to vocal stimuli [facility] Work Phone: 08-03-2022 Cognitive function Voice/Name [facility] Work Phone: 06-20-2021 Cognitive function Appropriate;Cooperativ e [facility] Work Phone: Clinical Notes 08-02-2022 to 09-24-2024 Discharge InstructionsMopriti Pringle MD - 09/24/2024 7:30 AM EDBilly Pringle MD - 09/24/2024 7:30 AM Gela Padron MD - 08/07/2024 2:30 PM EDTPatient InstructionsPatient Instructions Note Date & Type Note Facility 09-24-2024 Hospital Discharge instructions Dick Nguyen MD - 09/24/2024 9:17 AM EDT [facility] Interventional Pulmonology The anesthetics, sedatives or narcotics which were given to you today will be acting in your body for the next 24 hours, so you might feel a little sleepy or groggy. This feeling should slowly wear off. Carefully read and follow the instructions below: You received sedation today. Do not drive or operate machinery or power tools of any kind. No alcoholic beverages today, not even beer or wine. No over the counter medications that contain alcohol or may cause drowsiness. Do not make important decisions or sign legal documents. Do not use Aspirin containing products or non-steroidal medications for the next 24 hours. (Examples of these types of medications include: Advil, Aleve, Ecotrin, Ibuprofen, Motrin or Naprosyn. This list is not all-inclusive. Check with your physician or pharmacist before resuming these medications.) Tylenol, cough medicine, cough drops or throat lozenges may be used when you are allowed to resume eating and drinking. Call your physician if any of these symptoms occur: High fever over 101 degrees or chills (a low grade fever is common for 24 hours) Rash or hives Persistent nausea or vomiting Inability to urinate within 8 hours after the procedure Go directly to the emergency room if you notice any of the following: Shortness of breath Chest pain Coughing up large amounts of bright red blood greater than a teaspoonful of blood clots (about a teaspoonful for the next 24-48 hours is normal, especially if you had a biopsy) Resume all normal medications unless directed otherwise by your doctor. Your doctor recommends these additional instructions: Restart your anti platelets and blood thinner medications on 09/25 Follow up with your referring physician as previously scheduled. If you experience any problems or have any questions following discharge, please call: Before 5 pm: After 5pm and on weekends: / and ask for the Camp Program Director on-call (Pager Number: [phone]) documented in this encounter [facility] Work Phone: 09-24-2024 Attending History and physical note H&P reviewed. The patient was examined and there are no changes to the H&P. Cosigned by Dick Nguyen MD at 09/24/2024 7:46 AM EDT Associated attestation - Dick Nguyen MD - 09/24/2024 7:46 AM EDT Discussed with risks and benefits. Including pneumothorax and bleeding. Dick Nguyen MD Interventional Pulmonology Source Note - Rosalino Padron MD - 08/28/2024 1:00 PM EDT Images from the original note were not included. Department of Medicine Division of Pulmonary, Critical Care, and Sleep Medicine Consultation [address] [facility] Patient was referred by his PCP (Dr. Radha Peace) to evaluate for ILD. I have independently interviewed and examined the patient in the office and reviewed available records. Physician HPI : (06/26/2024) At baseline, patient has dyspnea on exertion, but none at rest. The dyspnea on exertion started many years ago, but progressing over the last few months. Patient mostly inactive in everyday life, works inside the house but does not engage in any form of exercise or demanding physical activity. Patient is too breathless to leave the house or breathless when dressing and undressing. Denies orthopnea, pnd, or esmer. Weight has been mostly stable. Patient also relates occasional chronic cough, but no sputum. No night cough. No hemoptysis. No fever or shivering chills. Denies chest pain or heartburn. 08/07/2024: Since his last visit, he felt that his breathing was worsening around June. We prescribed him a course of prednisone. He noted significant improvement in his symptoms. However with the tapering of the prednisone his symptoms continued to worsen again. He is still pending evaluation for mold at home. Company is coming in to check and evaluate on Saturday. No hospital admissions or ED visits. No new chest pain, cough, sputum, fever, chills or night sweats. He had a repeat high-resolution CT scan, breathing test, walking test, echocardiogram done (results below). 08/28/2024: Since the last visit, patient's breathing has been improving. No hospital admissions or ED visits. No new chest pain, cough, sputum, fever, chills or night sweats. He is currently on 20 mg of prednisone, and tolerating it pretty well. He did have the house checked out for mold. The results are still pending. He will send him when he has them. He is still pending scheduling for his cardiac biopsy. He called to schedule pulmonary rehab but does not have a start date yet. He is on 4 L at rest and 8 L with exertion. He is planned to travel in 1 week. Patient had repeat breathing test, 6MWT (results below). Prior Pulmonary History: Patient has no history of recurrent infections, or lung disease as a child. S/p Left video-assisted thoracoscopic surgery total pulmonary decortication in 2015 at [facility]. He was hospitalized in [place] from 03/02-03/04/2024 for acute hypoxic respiratory failure. Chest imaging history (I have personally reviewed the images below and this is my interpretation) 07/20/2024 HRCT with subpleural reticulation and GGO as well as significant mosaicisim, mostly diffuse and no clear honeycombing. Indeterminate for UIP 03/03/2024 CT chest w/o contrast (only report available) with diffuse fibrotic changes with honeycombing. Chronic bronchitis. 1.8cm liver nodule (stable compared to 2023) PFTs: 08/18/2024 -> Ratio of 0.87/FEV1 2.27L (76%) (no BD response)/FVC 2.6L (69%)/DLCO 34% 07/20/2024 -> Ratio of 0.59/FEV1 2.3L (67%)(no BD response)/FVC 2.69L (61%)/DLCO 36% 05/15/2024 -> Ratio of 0.87/FEV1 2.19L (63%)(no BD response)/FVC 2.52L (56%)/TLC 3.9L (57%)/RVtoTLC ratio 0.35/DLCO 36->67% 6MWTs: 08/18/2024 ->on 8L, 130m. Peak SpO2 of 100%. Francisco SpO2 90%. 07/20/2024 ->on 8L, 137m. Peak SpO2 of 95%. Francisco SpO2 85%. 04/09/2024 ->on 6L NC, 72m. Peak SpO2 of 95%. Francisco SpO2 88%. Echocardiogram: 07/20/2024 -> Normal EF, grade 1 diastolic dysfunction, difficult windows, unable to assess LA, RV size and function Lung biopsy: None done Relevant labs: Elevated RF at [facility] 07/23/2024 RF of 41 but negative anti-CCP, negative HP panel, extended myositis panel Hospitalization History: Has not been hospitalized over the last year for breathing related problem. Past Medical History: Afib on anticoagulation Social History: Social History Socioeconomic History Marital status: Tobacco Use Smoking status: Never Substance and Sexual Activity Alcohol use: Never Drug use: Never Occupational exposure: No known exposure to asbestos silica or beryllium. Evaluated for below and negative except highlighted in red. Occupational exposure (longest held job): Epoxies; isocyanates; pesticides; hay/silage; wheat flour; wood dust or natural fibres; animal products (hair, fur, dander, waste); birds (including feathers, down); insect cultivation; sea shells; water humidification systems (including water features, swamp coolers); mouldy/water-damaged workplace; metal cooling fluids; metal dust or fumes; sand/stone/concrete dust Home based exposures (last 5 years): Water-damaged or mouldy environment; water humidification systems (including water features, swamp coolers, desert coolers); hot tub or sauna; feather bedding; domestic animals (including birds, mammals, fish tanks, insects) Hobby exposures or avocations (last 5 years): Hunting; fly fishing; jewellery polishing; working with shells; woodworking; weaving, working with fibres; gardening, composting. CTD evaluation: No hx of joint pain/swelling, skin rashes, Raynaud's, sicca syndrome, eye redness, muscle pain and weakness, difficulty swallowing. Family History: No family history of lung diseases or cancer. Immunization History: Immunization History Administered Date(s) Administered Moderna SARS-CoV-2 Vaccination 06/10/2020, 07/08/2020 Current Medications: Medication Documentation Review Audit Reviewed by Heavenly Sparks MA ([employer]) on 08/28/24 at 1158 Medication Order Taking? Sig Documenting Provider Last Dose Status albuterol 90 mcg/actuation inhaler [id number] INHALE 2 PUFFS BY MOUTH EVERY 4 HOURS NEEDED FOR SHORTNESS OF BREATH OR WHEEZING Historical ProviderMD Active amLODIPine (Norvasc) 5 mg tablet [id number] Take 1 tablet (5 mg) by mouth once daily. Historical ProviderMD Active aspirin 325 mg tablet [id number] Take 1 tablet (325 mg) by mouth once daily. Historical ProviderMD Active atorvastatin (Lipitor) 80 mg tablet [id number] Take 1 tablet (80 mg) by mouth once daily at bedtime. Historical ProviderMD Active betamethasone, augmented, (Diprolene) 0.05 % lotion [id number] APPLY TO RASH ON THE TRUNK OR SCALP 1-2 TIMES DAILY NEEDED Historical ProviderMD Active bismuth subsalicylate (Pepto Bismol) 262 mg chewable tablet [id number] CHEW AND SWALLOW 2 TABLETS BY MOUTH 3 TIMES A DAY for 2 weeks. max 16 tablets per 24 hours Patient not taking: Reported on 08/07/2024 Historical ProviderMD Active Brilinta 90 mg tablet [id number] 1 tablet (90 mg). Historical ProviderMD Active busPIRone (Buspar) 10 mg tablet [id number] Take 1 tablet (10 mg) by mouth 3 times a day. Historical ProviderMD Active clopidogrel (Plavix) 75 mg tablet [id number] Take 1 tablet (75 mg) by mouth early in the morning.. Historical ProviderMD Active dapagliflozin propanediol (Farxiga) 5 mg [id number] Take 1 tablet (5 mg) by mouth once daily. Historical ProviderMD Active Dexcom G6 Sensor device [id number] USE DIRECTED FOR CONTINUOUS BLOOD GLUCOSE MONITORING, CHANGE SENSOR EVERY 10 DAYS Historical ProviderMD Active DULoxetine (Cymbalta) [address] capsule [id number] Take 1 capsule (60 mg) by mouth once daily. Historical ProviderMD Active Eliquis 5 mg tablet [id number] Take 1 tablet (5 mg) by mouth 2 times a day. Historical ProviderMD Active ergocalciferol (Vitamin D-2) 1250 mcg (50,000 units) capsule [id number] Take 1 capsule (1,250 mcg) by mouth. Historical MD Lacey Active fenofibrate (Tricor) 54 mg tablet [id number] Take 1 tablet (54 mg) by mouth once daily. Gloria Rahman MD Active furosemide (Lasix) 40 mg tablet [id number] Take 1 tablet (40 mg) by mouth. Gloria Rahman MD Active glimepiride (Amaryl) 4 mg tablet [id number] Take 1 tablet (4 mg) by mouth early in the morning.. Patient not taking: Reported on 08/07/2024 Gloria Rahman MD Active glipiZIDE (Glucotrol) 5 mg tablet [id number] Take 1 tablet (5 mg) by mouth. Patient not taking: Reported on 08/07/2024 Gloria Rahman MD Active HumuLIN R U-500, Conc, Insulin 500 unit/mL CONCENTRATED injection [id number] INJECT 75 UNITS DAILY VIA CONTINUOUS SUBCUTANEOUS INFUSION. DISCARD VIAL AFTER 40 DAYS Patient not taking: Reported on 08/07/2024 Gloria Rahman MD Active Jardiance 25 mg [id number] Take 1 tablet (25 mg) by mouth once daily. Historical ProviderMD Active levothyroxine (Synthroid, Levoxyl) 112 mcg tablet [id number] Take 1 tablet (112 mcg) by mouth once daily. Gloria ProviderMD Active lisinopril 40 mg tablet [id number] Take 1 tablet (40 mg) by mouth once daily. Historical ProviderMD Active metFORMIN (Glucophage) 500 mg tablet [id number] Take 1 tablet (500 mg) by mouth 2 times daily (morning and late afternoon). Gloria Rahman MD Active metoprolol succinate XL (Toprol-XL) 100 mg 24 hr tablet [id number] TAKE 1 TABLET BY MOUTH DAILY for heart Historical ProviderMD Active Mucinex DM 60-1,200 mg tablet extended release 12 hr [id number] Take 1 tablet by mouth every 12 hours. Gloria Rahman MD Active oxyCODONE-acetaminophen (Percocet) 5-325 mg tablet [id number] Take 1 tablet by mouth 2 times a day as needed. Patient not taking: Reported on 08/07/2024 Gloria Rahman MD Active pantoprazole (ProtoNix) 40 mg EC tablet [id number] Take 1 tablet (40 mg) by mouth. Historical ProviderMD Active potassium citrate CR (Urocit-K-10) 10 mEq ER tablet [id number] Take 1 tablet (10 mEq) by mouth twice a day. Historical ProviderMD Active predniSONE (Deltasone) 20 mg tablet [id number] Take 0.5 tablets (10 mg) by mouth early in the morning.. Historical ProviderMD Active predniSONE (Deltasone) 20 mg tablet [id number] Take 2 tablets (40 mg) by mouth once daily. Patient not taking: Reported on 08/07/2024 Rosalino Padron MD Active predniSONE (Deltasone) 5 mg tablet [id number] Take 4 tablets (20 mg) by mouth once daily for 30 days, THEN 3 tablets (15 mg) once daily for 30 days, THEN 2 tablets (10 mg) once daily for 30 days, THEN 1 tablet (5 mg) once daily for 14 days. Rosalino Padron MD Active spironolactone (Aldactone) 50 mg tablet [id number] Take 1 tablet (50 mg) by mouth once daily. Patient not taking: Reported on 08/07/2024 Historical ProviderMD Active tamsulosin (Flomax) 0.4 mg 24 hr capsule [id number] Take 1 capsule (0.4 mg) by mouth once daily. Historical ProviderMD Active traMADol (Ultram) 50 mg tablet [id number] Take 1 tablet (50 mg) by mouth. Historical Provider, Active Drug Allergies/Intolerances: Allergies Allergen Reactions Metoclopramide Anaphylaxis and Shortness of breath Review of Systems: All other review of systems are negative and/or non-contributory. Physical Examination: There were no vitals filed for this visit. Constitutional: Alert and oriented. In no acute distress. Well developed, well nourished. Head and Face: Normal. Palpation of the face and sinuses: normal. Ear, Nose and throat: External inspection of the ear and nose: normal. Oropharynx: normal. Neck: Supple. No neck mass observed. Pulmonary: Chest is normal to inspection. No increased work of breathing or signs of respiratory distress. Normal auscultation. CV: Heart rate and rhythm were normal. Normal S1 and S2, no gallops, no murmurs and no pericardial rub. No peripheral edema. Abdomen: soft, nontender, no abdominal mass palpated. Lymphatic: no cervical lad. MSK: normal gait and station. No clubbing or cyanosis of the fingernails. Skin: Normal skin color and pigmentation, normal skin turgor, and no rash. Neurologic: Cranial nerves intact. Moving all 4 extremities. Psychiatric: Intact judgement and insight. Assessment and Plan / Recommendations: # ILD evaluation: -No known occupational exposure or exposure to suspect medication. -Concern for mold at home. Discussed inspection by professional company. Evaluation pending -Initially thought related to RA however unclear if he truly has RA. He has a positive RF at 41, negative CCF and no joint inflammation or stiffness. Will consider full rheum evaluation in the future -HRCT indeterminate for UIP. Mosaic attenuation concerning more for HP -Too high risk for VATS given high O2 requirement, plan for cryobiospy with Dr. Coleman after September 11 (since he is traveling) -will treat empirically for prednisone as below -Workup for rheumatologic disease including RF, anti-ccp, RICARDO with reflex NEELA, ANCA, ESR, CRP, CPK, aldolase, myositis ab panel done and mostly negative outside of RF of 41 -will refer to pulmonary rehab on 08/08/2023. Pending start -Discussed antifibrotic therapy. Not a good candidate for Ofev given the need anticoagulation. Will discuss Esbriet on follow as well as clinical trial participation -Evaluation for comorbidities (KIANNA, GERD, aspiration, CAD, lung cancer screening etc.) as below -Vaccinations per his pcp -Home evaluation for home completed and results pending # Prednisone therapy: Ordered on 08/07/2024. He felt well on 20mg daily. We will prescribed 20mg for 1 month, 15mg for 1month, 10mg for 1 month, then 5 mg for 2 weeks then stop # Diastolic Heart failure and PAH evaluation: -difficult to assess volume status given body habitus -will obtain echocardiogram to screen for PAH # Chronic hypoxic respiratory failure: -needs 4L at rest and 8L with exertion -multifactorial # KIANNA: -not compliant with his PAP therapy Encourage to be more compliant with his PAP # Obesity: -BMI > 40 Encouraged weight loss Follow-up: 2-3 months once above completed Rosalino Padron MD 08/28/2024 [facility] Work Phone: 09-24-2024 History and physical note H&P reviewed. The patient was examined and there are no changes to the H&P. Cosigned by Dick Nguyen MD at 09/24/2024 7:46 AM EDT Associated attestation - Dick Nguyen MD - 09/24/2024 7:46 AM EDT Discussed with risks and benefits. Including pneumothorax and bleeding. Dick Nguyen MD Interventional Pulmonology Source Note - Rosalino Padron MD - 08/28/2024 1:00 PM EDT Images from the original note were not included. Department of Medicine Division of Pulmonary, Critical Care, and Sleep Medicine Consultation [address] [facility] Patient was referred by his PCP (Dr. Radha Peace) to evaluate for ILD. I have independently interviewed and examined the patient in the office and reviewed available records. Physician HPI : (06/26/2024) At baseline, patient has dyspnea on exertion, but none at rest. The dyspnea on exertion started many years ago, but progressing over the last few months. Patient mostly inactive in everyday life, works inside the house but does not engage in any form of exercise or demanding physical activity. Patient is too breathless to leave the house or breathless when dressing and undressing. Denies orthopnea, pnd, or esmer. Weight has been mostly stable. Patient also relates occasional chronic cough, but no sputum. No night cough. No hemoptysis. No fever or shivering chills. Denies chest pain or heartburn. 08/07/2024: Since his last visit, he felt that his breathing was worsening around June. We prescribed him a course of prednisone. He noted significant improvement in his symptoms. However with the tapering of the prednisone his symptoms continued to worsen again. He is still pending evaluation for mold at home. Company is coming in to check and evaluate on Saturday. No hospital admissions or ED visits. No new chest pain, cough, sputum, fever, chills or night sweats. He had a repeat high-resolution CT scan, breathing test, walking test, echocardiogram done (results below). 08/28/2024: Since the last visit, patient's breathing has been improving. No hospital admissions or ED visits. No new chest pain, cough, sputum, fever, chills or night sweats. He is currently on 20 mg of prednisone, and tolerating it pretty well. He did have the house checked out for mold. The results are still pending. He will send him when he has them. He is still pending scheduling for his cardiac biopsy. He called to schedule pulmonary rehab but does not have a start date yet. He is on 4 L at rest and 8 L with exertion. He is planned to travel in 1 week. Patient had repeat breathing test, 6MWT (results below). Prior Pulmonary History: Patient has no history of recurrent infections, or lung disease as a child. S/p Left video-assisted thoracoscopic surgery total pulmonary decortication in 2015 at [facility]. He was hospitalized in [place] from 03/02-03/04/2024 for acute hypoxic respiratory failure. Chest imaging history (I have personally reviewed the images below and this is my interpretation) 07/20/2024 HRCT with subpleural reticulation and GGO as well as significant mosaicisim, mostly diffuse and no clear honeycombing. Indeterminate for UIP 03/03/2024 CT chest w/o contrast (only report available) with diffuse fibrotic changes with honeycombing. Chronic bronchitis. 1.8cm liver nodule (stable compared to 2023) PFTs: 08/18/2024 -> Ratio of 0.87/FEV1 2.27L (76%) (no BD response)/FVC 2.6L (69%)/DLCO 34% 07/20/2024 -> Ratio of 0.59/FEV1 2.3L (67%)(no BD response)/FVC 2.69L (61%)/DLCO 36% 05/15/2024 -> Ratio of 0.87/FEV1 2.19L (63%)(no BD response)/FVC 2.52L (56%)/TLC 3.9L (57%)/RVtoTLC ratio 0.35/DLCO 36->67% 6MWTs: 08/18/2024 ->on 8L, 130m. Peak SpO2 of 100%. Francisco SpO2 90%. 07/20/2024 ->on 8L, 137m. Peak SpO2 of 95%. Francisco SpO2 85%. 04/09/2024 ->on 6L NC, 72m. Peak SpO2 of 95%. Francisco SpO2 88%. Echocardiogram: 07/20/2024 -> Normal EF, grade 1 diastolic dysfunction, difficult windows, unable to assess LA, RV size and function Lung biopsy: None done Relevant labs: Elevated RF at OSH 07/23/2024 RF of 41 but negative anti-CCP, negative HP panel, extended myositis panel Hospitalization History: Has not been hospitalized over the last year for breathing related problem. Past Medical History: Afib on anticoagulation Social History: Social History Socioeconomic History Marital status: Tobacco Use Smoking status: Never Substance and Sexual Activity Alcohol use: Never Drug use: Never Occupational exposure: No known exposure to asbestos silica or beryllium. Evaluated for below and negative except highlighted in red. Occupational exposure (longest held job): Epoxies; isocyanates; pesticides; hay/silage; wheat flour; wood dust or natural fibres; animal products (hair, fur, dander, waste); birds (including feathers, down); insect cultivation; sea shells; water humidification systems (including water features, swamp coolers); mouldy/water-damaged workplace; metal cooling fluids; metal dust or fumes; sand/stone/concrete dust Home based exposures (last 5 years): Water-damaged or mouldy environment; water humidification systems (including water features, swamp coolers, desert coolers); hot tub or sauna; feather bedding; domestic animals (including birds, mammals, fish tanks, insects) Hobby exposures or avocations (last 5 years): Hunting; fly fishing; jewellery polishing; working with shells; woodworking; weaving, working with fibres; gardening, composting. CTD evaluation: No hx of joint pain/swelling, skin rashes, Raynaud's, sicca syndrome, eye redness, muscle pain and weakness, difficulty swallowing. Family History: No family history of lung diseases or cancer. Immunization History: Immunization History Administered Date(s) Administered Moderna SARS-CoV-2 Vaccination 06/10/2020, 07/08/2020 Current Medications: Medication Documentation Review Audit Reviewed by Heavenly Sparks MA ([employer]) on 08/28/24 at 1158 Medication Order Taking? Sig Documenting Provider Last Dose Status albuterol 90 mcg/actuation inhaler [id number] INHALE 2 PUFFS BY MOUTH EVERY 4 HOURS NEEDED FOR SHORTNESS OF BREATH OR WHEEZING Historical ProviderMD Active amLODIPine (Norvasc) 5 mg tablet [id number] Take 1 tablet (5 mg) by mouth once daily. Historical ProviderMD Active aspirin 325 mg tablet [id number] Take 1 tablet (325 mg) by mouth once daily. Historical ProviderMD Active atorvastatin (Lipitor) 80 mg tablet [id number] Take 1 tablet (80 mg) by mouth once daily at bedtime. Historical ProviderMD Active betamethasone, augmented, (Diprolene) 0.05 % lotion [id number] APPLY TO RASH ON THE TRUNK OR SCALP 1-2 TIMES DAILY NEEDED Historical ProviderMD Active bismuth subsalicylate (Pepto Bismol) 262 mg chewable tablet [id number] CHEW AND SWALLOW 2 TABLETS BY MOUTH 3 TIMES A DAY for 2 weeks. max 16 tablets per 24 hours Patient not taking: Reported on 08/07/2024 Historical ProviderMD Active Brilinta 90 mg tablet [id number] 1 tablet (90 mg). Historical ProviderMD Active busPIRone (Buspar) 10 mg tablet [id number] Take 1 tablet (10 mg) by mouth 3 times a day. Historical ProviderMD Active clopidogrel (Plavix) 75 mg tablet [id number] Take 1 tablet (75 mg) by mouth early in the morning.. Historical ProviderMD Active dapagliflozin propanediol (Farxiga) 5 mg [id number] Take 1 tablet (5 mg) by mouth once daily. Historical ProviderMD Active Dexcom G6 Sensor device [id number] USE DIRECTED FOR CONTINUOUS BLOOD GLUCOSE MONITORING, CHANGE SENSOR EVERY 10 DAYS Historical ProviderMD Active DULoxetine (Cymbalta) [address] capsule [id number] Take 1 capsule (60 mg) by mouth once daily. Historical ProviderMD Active Eliquis 5 mg tablet [id number] Take 1 tablet (5 mg) by mouth 2 times a day. Historical ProviderMD Active ergocalciferol (Vitamin D-2) 1250 mcg (50,000 units) capsule [id number] Take 1 capsule (1,250 mcg) by mouth. Gloria Rahman MD Active fenofibrate (Tricor) 54 mg tablet [id number] Take 1 tablet (54 mg) by mouth once daily. Gloria Rahman MD Active furosemide (Lasix) 40 mg tablet [id number] Take 1 tablet (40 mg) by mouth. Gloria ProviderMD Active glimepiride (Amaryl) 4 mg tablet [id number] Take 1 tablet (4 mg) by mouth early in the morning.. Patient not taking: Reported on 08/07/2024 Gloria Rahman MD Active glipiZIDE (Glucotrol) 5 mg tablet [id number] Take 1 tablet (5 mg) by mouth. Patient not taking: Reported on 08/07/2024 Gloria Rahman MD Active HumuLIN R U-500, Conc, Insulin 500 unit/mL CONCENTRATED injection [id number] INJECT 75 UNITS DAILY VIA CONTINUOUS SUBCUTANEOUS INFUSION. DISCARD VIAL AFTER 40 DAYS Patient not taking: Reported on 08/07/2024 Gloria Rahman MD Active Jardiance 25 mg [id number] Take 1 tablet (25 mg) by mouth once daily. Historical ProviderMD Active levothyroxine (Synthroid, Levoxyl) 112 mcg tablet [id number] Take 1 tablet (112 mcg) by mouth once daily. Gloria ProviderMD Active lisinopril 40 mg tablet [id number] Take 1 tablet (40 mg) by mouth once daily. Historical ProviderMD Active metFORMIN (Glucophage) 500 mg tablet [id number] Take 1 tablet (500 mg) by mouth 2 times daily (morning and late afternoon). Historical ProviderMD Active metoprolol succinate XL (Toprol-XL) 100 mg 24 hr tablet [id number] TAKE 1 TABLET BY MOUTH DAILY for heart Historical ProviderMD Active Mucinex DM 60-1,200 mg tablet extended release 12 hr [id number] Take 1 tablet by mouth every 12 hours. Gloria Rahman MD Active oxyCODONE-acetaminophen (Percocet) 5-325 mg tablet [id number] Take 1 tablet by mouth 2 times a day as needed. Patient not taking: Reported on 08/07/2024 Gloria Rahman MD Active pantoprazole (ProtoNix) 40 mg EC tablet [id number] Take 1 tablet (40 mg) by mouth. Historical ProviderMD Active potassium citrate CR (Urocit-K-10) 10 mEq ER tablet [id number] Take 1 tablet (10 mEq) by mouth twice a day. Historical ProviderMD Active predniSONE (Deltasone) 20 mg tablet [id number] Take 0.5 tablets (10 mg) by mouth early in the morning.. Historical ProviderMD Active predniSONE (Deltasone) 20 mg tablet [id number] Take 2 tablets (40 mg) by mouth once daily. Patient not taking: Reported on 08/07/2024 Rosalino Padron MD Active predniSONE (Deltasone) 5 mg tablet [id number] Take 4 tablets (20 mg) by mouth once daily for 30 days, THEN 3 tablets (15 mg) once daily for 30 days, THEN 2 tablets (10 mg) once daily for 30 days, THEN 1 tablet (5 mg) once daily for 14 days. Rosalino Padron MD Active spironolactone (Aldactone) 50 mg tablet [id number] Take 1 tablet (50 mg) by mouth once daily. Patient not taking: Reported on 08/07/2024 Historical ProviderMD Active tamsulosin (Flomax) 0.4 mg 24 hr capsule [id number] Take 1 capsule (0.4 mg) by mouth once daily. Historical ProviderMD Active traMADol (Ultram) 50 mg tablet [id number] Take 1 tablet (50 mg) by mouth. Historical ProviderMD Active Drug Allergies/Intolerances: Allergies Allergen Reactions Metoclopramide Anaphylaxis and Shortness of breath Review of Systems: All other review of systems are negative and/or non-contributory. Physical Examination: There were no vitals filed for this visit. Constitutional: Alert and oriented. In no acute distress. Well developed, well nourished. Head and Face: Normal. Palpation of the face and sinuses: normal. Ear, Nose and throat: External inspection of the ear and nose: normal. Oropharynx: normal. Neck: Supple. No neck mass observed. Pulmonary: Chest is normal to inspection. No increased work of breathing or signs of respiratory distress. Normal auscultation. CV: Heart rate and rhythm were normal. Normal S1 and S2, no gallops, no murmurs and no pericardial rub. No peripheral edema. Abdomen: soft, nontender, no abdominal mass palpated. Lymphatic: no cervical lad. MSK: normal gait and station. No clubbing or cyanosis of the fingernails. Skin: Normal skin color and pigmentation, normal skin turgor, and no rash. Neurologic: Cranial nerves intact. Moving all 4 extremities. Psychiatric: Intact judgement and insight. Assessment and Plan / Recommendations: # ILD evaluation: -No known occupational exposure or exposure to suspect medication. -Concern for mold at home. Discussed inspection by professional company. Evaluation pending -Initially thought related to RA however unclear if he truly has RA. He has a positive RF at 41, negative CCF and no joint inflammation or stiffness. Will consider full rheum evaluation in the future -HRCT indeterminate for UIP. Mosaic attenuation concerning more for HP -Too high risk for VATS given high O2 requirement, plan for cryobiospy with Dr. Coleman after September 11 (since he is traveling) -will treat empirically for prednisone as below -Workup for rheumatologic disease including RF, anti-ccp, RICARDO with reflex NEELA, ANCA, ESR, CRP, CPK, aldolase, myositis ab panel done and mostly negative outside of RF of 41 -will refer to pulmonary rehab on 08/08/2023. Pending start -Discussed antifibrotic therapy. Not a good candidate for Ofev given the need anticoagulation. Will discuss Esbriet on follow as well as clinical trial participation -Evaluation for comorbidities (KIANNA, GERD, aspiration, CAD, lung cancer screening etc.) as below -Vaccinations per his pcp -Home evaluation for home completed and results pending # Prednisone therapy: Ordered on 08/07/2024. He felt well on 20mg daily. We will prescribed 20mg for 1 month, 15mg for 1month, 10mg for 1 month, then 5 mg for 2 weeks then stop # Diastolic Heart failure and PAH evaluation: -difficult to assess volume status given body habitus -will obtain echocardiogram to screen for PAH # Chronic hypoxic respiratory failure: -needs 4L at rest and 8L with exertion -multifactorial # KIANNA: -not compliant with his PAP therapy Encourage to be more compliant with his PAP # Obesity: -BMI > 40 Encouraged weight loss Follow-up: 2-3 months once above completed Rosalino Padron MD 08/28/2024 documented in this encounter [facility] Work Phone: 08-13-2024 Radiology Diagnostic study note [facility] 08-07-2024 History of Present illness Narrative Images from the original note were not included. Department of Medicine Division of Pulmonary, Critical Care, and Sleep Medicine Consultation [address] [facility] Patient was referred by his PCP (Dr. Radha Peace) to evaluate for ILD. I have independently interviewed and examined the patient in the office and reviewed available records. Physician HPI : (06/26/2024) At baseline, patient has dyspnea on exertion, but none at rest. The dyspnea on exertion started many years ago, but progressing over the last few months. Patient mostly inactive in everyday life, works inside the house but does not engage in any form of exercise or demanding physical activity. Patient is too breathless to leave the house or breathless when dressing and undressing. Denies orthopnea, pnd, or esmer. Weight has been mostly stable. Patient also relates occasional chronic cough, but no sputum. No night cough. No hemoptysis. No fever or shivering chills. Denies chest pain or heartburn. 08/07/2024: Since his last visit, he felt that his breathing was worsening around June. We prescribed him a course of prednisone. He noted significant improvement in his symptoms. However with the tapering of the prednisone his symptoms continued to worsen again. He is still pending evaluation for mold at home. Company is coming in to check and evaluate on Saturday. No hospital admissions or ED visits. No new chest pain, cough, sputum, fever, chills or night sweats. He had a repeat high-resolution CT scan, breathing test, walking test, echocardiogram done (results below). Prior Pulmonary History: Patient has no history of recurrent infections, or lung disease as a child. S/p Left video-assisted thoracoscopic surgery total pulmonary decortication in 2016 at [facility]. He was hospitalized in [place] from 03/02-03/04/2024 for acute hypoxic respiratory failure. Chest imaging history (I have personally reviewed the images below and this is my interpretation) 07/20/2024 HRCT with subpleural reticulation and GGO as well as significant mosaicisim, mostly diffuse and no clear honeycombing. Indeterminate for UIP 03/03/2024 CT chest w/o contrast (only report available) with diffuse fibrotic changes with honeycombing. Chronic bronchitis. 1.8cm liver nodule (stable compared to 2023) PFTs: 07/20/2024 -> Ratio of 0.59/FEV1 2.3L (67%)(no BD response)/FVC 2.69L (61%)/DLCO 36% 05/15/2024 -> Ratio of 0.87/FEV1 2.19L (63%)(no BD response)/FVC 2.52L (56%)/TLC 3.9L (57%)/RVtoTLC ratio 0.35/DLCO 36->67% 6MWTs: 07/20/2024 ->on 8L, 137m. Peak SpO2 of 95%. Francisco SpO2 85%. 04/09/2024 ->on 6L NC, 72m. Peak SpO2 of 95%. Francisco SpO2 88%. Echocardiogram: 07/20/2024 -> Normal EF, grade 1 diastolic dysfunction, difficult windows, unable to assess LA, RV size and function Lung biopsy: None done Relevant labs: Elevated RF at OSH 07/23/2024 RF of 41 but negative anti-CCP, negative HP panel, extended myositis panel Hospitalization History: Has not been hospitalized over the last year for breathing related problem. Past Medical History: Afib on anticoagulation Social History: Social History Socioeconomic History Marital status: Tobacco Use Smoking status: Never Substance and Sexual Activity Alcohol use: Never Drug use: Never Occupational exposure: No known exposure to asbestos silica or beryllium. Evaluated for below and negative except highlighted in red. Occupational exposure (longest held job): Epoxies; isocyanates; pesticides; hay/silage; wheat flour; wood dust or natural fibres; animal products (hair, fur, dander, waste); birds (including feathers, down); insect cultivation; sea shells; water humidification systems (including water features, swamp coolers); mouldy/water-damaged workplace; metal cooling fluids; metal dust or fumes; sand/stone/concrete dust Home based exposures (last 5 years): Water-damaged or mouldy environment; water humidification systems (including water features, swamp coolers, desert coolers); hot tub or sauna; feather bedding; domestic animals (including birds, mammals, fish tanks, insects) Hobby exposures or avocations (last 5 years): Hunting; fly fishing; jewellery polishing; working with shells; woodworking; weaving, working with fibres; gardening, composting. CTD evaluation: No hx of joint pain/swelling, skin rashes, Raynaud's, sicca syndrome, eye redness, muscle pain and weakness, difficulty swallowing. Family History: No family history of lung diseases or cancer. Immunization History: Immunization History Administered Date(s) Administered Moderna SARS-CoV-2 Vaccination 06/10/2020, 07/08/2020 Current Medications: Medication Documentation Review Audit Reviewed by Rivka Gerardo MA ([employer]) on 08/07/24 at 1413 Medication Order Taking? Sig Documenting Provider Last Dose Status albuterol 90 mcg/actuation inhaler [id number] Yes INHALE 2 PUFFS BY MOUTH EVERY 4 HOURS NEEDED FOR SHORTNESS OF BREATH OR WHEEZING Historical ProviderMD Active amLODIPine (Norvasc) 5 mg tablet [id number] Yes Take 1 tablet (5 mg) by mouth once daily. Historical ProviderMD Active aspirin 325 mg tablet [id number] Yes Take 1 tablet (325 mg) by mouth once daily. Historical ProviderMD Active atorvastatin (Lipitor) 80 mg tablet [id number] Yes Take 1 tablet (80 mg) by mouth once daily at bedtime. Historical ProviderMD Active betamethasone, augmented, (Diprolene) 0.05 % lotion [id number] APPLY TO RASH ON THE TRUNK OR SCALP 1-2 TIMES DAILY NEEDED Historical ProviderMD Active bismuth subsalicylate (Pepto Bismol) 262 mg chewable tablet [id number] CHEW AND SWALLOW 2 TABLETS BY MOUTH 3 TIMES A DAY for 2 weeks. max 16 tablets per 24 hours Patient not taking: Reported on 08/07/2024 Historical ProviderMD Active Brilinta 90 mg tablet [id number] Yes 1 tablet (90 mg). Historical ProviderMD Active busPIRone (Buspar) 10 mg tablet [id number] Yes Take 1 tablet (10 mg) by mouth 3 times a day. Historical ProviderMD Active clopidogrel (Plavix) 75 mg tablet [id number] Take 1 tablet (75 mg) by mouth early in the morning.. Historical ProviderMD Active dapagliflozin propanediol (Farxiga) 5 mg [id number] Take 1 tablet (5 mg) by mouth once daily. Historical ProviderMD Active Dexcom G6 Sensor device [id number] Yes USE DIRECTED FOR CONTINUOUS BLOOD GLUCOSE MONITORING, CHANGE SENSOR EVERY 10 DAYS Historical ProviderMD Active DULoxetine (Cymbalta) [address] capsule [id number] Yes Take 1 capsule (60 mg) by mouth once daily. Historical ProviderMD Active Eliquis 5 mg tablet [id number] Yes Take 1 tablet (5 mg) by mouth 2 times a day. Historical ProviderMD Active ergocalciferol (Vitamin D-2) 1250 mcg (50,000 units) capsule [id number] Take 1 capsule (1,250 mcg) by mouth. Historical ProviderMD Active fenofibrate (Tricor) 54 mg tablet [id number] Yes Take 1 tablet (54 mg) by mouth once daily. Historical ProviderMD Active furosemide (Lasix) 40 mg tablet [id number] Yes Take 1 tablet (40 mg) by mouth. Historical ProviderMD Active glimepiride (Amaryl) 4 mg tablet [id number] Take 1 tablet (4 mg) by mouth early in the morning.. Patient not taking: Reported on 08/07/2024 Historical MD Lacey Active glipiZIDE (Glucotrol) 5 mg tablet [id number] Take 1 tablet (5 mg) by mouth. Patient not taking: Reported on 08/07/2024 Historical MD Lacey Active HumuLIN R U-500, Conc, Insulin 500 unit/mL CONCENTRATED injection [id number] INJECT 75 UNITS DAILY VIA CONTINUOUS SUBCUTANEOUS INFUSION. DISCARD VIAL AFTER 40 DAYS Patient not taking: Reported on 08/07/2024 Historical MD Lacey Active Jardiance 25 mg [id number] Yes Take 1 tablet (25 mg) by mouth once daily. Historical ProviderMD Active levothyroxine (Synthroid, Levoxyl) 112 mcg tablet [id number] Yes Take 1 tablet (112 mcg) by mouth once daily. Historical ProviderMD Active lisinopril 40 mg tablet [id number] Yes Take 1 tablet (40 mg) by mouth once daily. Historical ProviderMD Active metFORMIN (Glucophage) 500 mg tablet [id number] Take 1 tablet (500 mg) by mouth 2 times daily (morning and late afternoon). Historical ProviderMD Active metoprolol succinate XL (Toprol-XL) 100 mg 24 hr tablet [id number] Yes TAKE 1 TABLET BY MOUTH DAILY for heart Historical ProviderMD Active Mucinex DM 60-1,200 mg tablet extended release 12 hr [id number] Take 1 tablet by mouth every 12 hours. Historical ProviderMD Active oxyCODONE-acetaminophen (Percocet) 5-325 mg tablet [id number] Take 1 tablet by mouth 2 times a day as needed. Patient not taking: Reported on 08/07/2024 Historical ProviderMD Active pantoprazole (ProtoNix) 40 mg EC tablet [id number] Yes Take 1 tablet (40 mg) by mouth. Historical ProviderMD Active potassium citrate CR (Urocit-K-10) 10 mEq ER tablet [id number] Take 1 tablet (10 mEq) by mouth twice a day. Historical ProviderMD Active predniSONE (Deltasone) 20 mg tablet [id number] Take 0.5 tablets (10 mg) by mouth early in the morning.. Historical ProviderMD Active predniSONE (Deltasone) 20 mg tablet [id number] Take 2 tablets (40 mg) by mouth once daily. Patient not taking: Reported on 08/07/2024 Rosalino Padron MD Active spironolactone (Aldactone) 50 mg tablet [id number] Take 1 tablet (50 mg) by mouth once daily. Patient not taking: Reported on 08/07/2024 Historical MD Lacey Active tamsulosin (Flomax) 0.4 mg 24 hr capsule [id number] Yes Take 1 capsule (0.4 mg) by mouth once daily. Historical ProviderMD Active traMADol (Ultram) 50 mg tablet [id number] Take 1 tablet (50 mg) by mouth. Historical Provider, Active Drug Allergies/Intolerances: Allergies Allergen Reactions Metoclopramide Anaphylaxis and Shortness of breath Review of Systems: All other review of systems are negative and/or non-contributory. Physical Examination: Vitals: 08/07/24 1409 BP: 92/58 Pulse: 81 Temp: 36.7 C (98 F) SpO2: 98% Constitutional: Alert and oriented. In no acute distress. Well developed, well nourished. Head and Face: Normal. Palpation of the face and sinuses: normal. Ear, Nose and throat: External inspection of the ear and nose: normal. Oropharynx: normal. Neck: Supple. No neck mass observed. Pulmonary: Chest is normal to inspection. No increased work of breathing or signs of respiratory distress. Normal auscultation. CV: Heart rate and rhythm were normal. Normal S1 and S2, no gallops, no murmurs and no pericardial rub. No peripheral edema. Abdomen: soft, nontender, no abdominal mass palpated. Lymphatic: no cervical lad. MSK: normal gait and station. No clubbing or cyanosis of the fingernails. Skin: Normal skin color and pigmentation, normal skin turgor, and no rash. Neurologic: Cranial nerves intact. Moving all 4 extremities. Psychiatric: Intact judgement and insight. Assessment and Plan / Recommendations: # ILD evaluation: -No known occupational exposure or exposure to suspect medication. -Concern for mold at home. Discussed inspection by professional company. Evaluation pending -Initially thought related to RA however unclear if he truly has RA. He has a positive RF at 41, negative CCF and no joint inflammation or stiffness. Will consider full rheum evaluation in the future -HRCT indeterminate for UIP. Mosaic attenuation concerning more for HP -Too high risk for VATS given high O2 requirement, will discuss with IP the role of cryobiopsie. -will treat empirically for prednisone as below -Workup for rheumatologic disease including RF, anti-ccp, RICARDO with reflex NEELA, ANCA, ESR, CRP, CPK, aldolase, myositis ab panel done and mostly negative outside of RF of 41 -will refer to pulmonary rehab on 08/08/2023. -Discussed antifibrotic therapy. Not a good candidate for Ofev given the need anticoagulation. Will discuss Esbriet on follow as well as clinical trial participation -Evaluation for comorbidities (KIANNA, GERD, aspiration, CAD, lung cancer screening etc.) as below -Vaccinations per his pcp # Prednisone therapy: Ordered on 08/07/2024. He felt well on 20mg daily. We will prescribed 20mg for 1 month, 15mg for 1month, 10mg for 1 month, then 5 mg for 2 weeks then stop # Diastolic Heart failure and PAH evaluation: -difficult to assess volume status given body habitus -will obtain echocardiogram to screen for PAH # Chronic hypoxic respiratory failure: -needs 4L at rest and 6L with exertion -multifactorial # KIANNA: -not compliant with his PAP therapy Encourage to be more compliant with his PAP # Obesity: -BMI > 40 Encouraged weight loss Follow-up: 1-2 months once above completed Rosalino Pdaron MD 08/07/2024 documented in this encounter [facility] Work Phone: 08-07-2024 Instructions Rosalino Padron MD - 08/07/2024 2:30 PM EDT Krunal Leos it was pleasure seeing you in clinic today. We discussed the following: Your scan did not confirm idiopathic pulmonary fibrosis The appearance of the CT, the suspicion of mold at home and the fact that you improved with prednisone suggests hypersenstivity pneumonitis I will prescribe you a longer course of prednisone I will make a referral to pulmonary rehab You will continue to use your incentive spirometer at home You will get the house evaluated for black mold. We will evaluate you for a possible lung biopsy and will update you if you would be a candidate We will see you back in clinic in 1 month with repeat breathing test and walking test. Ok to double book on last clinic time slot For scheduling purposes: Call [phone] to schedule a breathing or a walking test Call [phone] to schedule EKG's, Echocardiograms and Cardiopulmonary Stress Tests. Call [phone] to schedule Radiology tests such as Nuclear Medicine Stress Tests, CT Scans, and MRI's. Should you have any questions Please Call our pulmonary nurse Linda Marie at [phone] or my carpenter's assistant Puneet Leone at [phone] documented in this encounter [facility] Work Phone: 06-26-2024 History of Present illness Narrative Images from the original note were not included. Department of Medicine Division of Pulmonary, Critical Care, and Sleep Medicine Consultation [address] [facility] Patient was referred by his PCP (Dr. Radha Peace) to evaluate for ILD. I have independently interviewed and examined the patient in the office and reviewed available records. Physician HPI : (06/26/2024) At baseline, patient has dyspnea on exertion, but none at rest. The dyspnea on exertion started many years ago, but has mostly been stable/progressing over the last xxx months. Patient mostly inactive in everyday life, works inside the house but does not engage in any form of exercise or demanding physical activity. Patient is too breathless to leave the house or breathless when dressing and undressing. Denies orthopnea, pnd, or esmer. Weight has been mostly stable. Patient also relates occasional chronic cough, but no sputum. No night cough. No hemoptysis. No fever or shivering chills. Denies chest pain or heartburn. Prior Pulmonary History: Patient has no history of recurrent infections, or lung disease as a child. S/p Left video-assisted thoracoscopic surgery total pulmonary decortication in 2015 at [facility]. He was hospitalized in [place] from 03/02-03/04/2024 for acute hypoxic respiratory failure. Chest imaging history (I have personally reviewed the images below and this is my interpretation) 03/03/2024 CT chest w/o contrast (only report available) with diffuse fibrotic changes with honeycombing. Chronic bronchitis. 1.8cm liver nodule (stable compared to 2023) PFTs: 05/15/2024 -> Ratio of 0.87/FEV1 2.19L (63%)(no BD response)/FVC 2.52L (56%)/TLC 3.9L (57%)/RVtoTLC ratio 0.35/DLCO 36->67% 6MWTs: 04/09/2024 ->on 6L NC, 72m. Peak SpO2 of 95%. Francisco SpO2 88%. Echocardiogram: None on record Lung biopsy: None done Relevant labs: Elevated RF at OSH Hospitalization History: Has not been hospitalized over the last year for breathing related problem. Past Medical History: Afib on anticoagulation Social History: Social History Socioeconomic History Marital status: Occupational exposure: No known exposure to asbestos silica or beryllium. Evaluated for below and negative except highlighted in red. Occupational exposure (longest held job): Epoxies; isocyanates; pesticides; hay/silage; wheat flour; wood dust or natural fibres; animal products (hair, fur, dander, waste); birds (including feathers, down); insect cultivation; sea shells; water humidification systems (including water features, swamp coolers); mouldy/water-damaged workplace; metal cooling fluids; metal dust or fumes; sand/stone/concrete dust Home based exposures (last 5 years): Water-damaged or mouldy environment; water humidification systems (including water features, swamp coolers, desert coolers); hot tub or sauna; feather bedding; domestic animals (including birds, mammals, fish tanks, insects) Hobby exposures or avocations (last 5 years): Hunting; fly fishing; jewellery polishing; working with shells; woodworking; weaving, working with fibres; gardening, composting. CTD evaluation: No hx of joint pain/swelling, skin rashes, Raynaud's, sicca syndrome, eye redness, muscle pain and weakness, difficulty swallowing. Family History: No family history of lung diseases or cancer. Immunization History: Immunization History Administered Date(s) Administered Moderna SARS-CoV-2 Vaccination 06/10/2020, 07/08/2020 Current Medications: Medication Documentation Review Audit Reviewed by Suly Johnston MA ([employer]) on 06/26/24 at 1224 Medication Order Taking? Sig Documenting Provider Last Dose Status albuterol 90 mcg/actuation inhaler [id number] Yes INHALE 2 PUFFS BY MOUTH EVERY 4 HOURS NEEDED FOR SHORTNESS OF BREATH OR WHEEZING Historical ProviderMD Active amLODIPine (Norvasc) 5 mg tablet [id number] Take 1 tablet (5 mg) by mouth once daily. Historical Provider, Active aspirin 325 mg tablet [id number] Take 1 tablet (325 mg) by mouth once daily. Historical Provider, Active atorvastatin (Lipitor) 80 mg tablet [id number] Take 1 tablet (80 mg) by mouth once daily at bedtime. Historical Provider, Active betamethasone, augmented, (Diprolene) 0.05 % lotion [id number] Yes APPLY TO RASH ON THE TRUNK OR SCALP 1-2 TIMES DAILY NEEDED Historical ProviderMD Active bismuth subsalicylate (Pepto Bismol) 262 mg chewable tablet [id number] Yes CHEW AND SWALLOW 2 TABLETS BY MOUTH 3 TIMES A DAY for 2 weeks. max 16 tablets per 24 hours Historical ProviderMD Active Brilinta 90 mg tablet [id number] Yes 1 tablet (90 mg). Historical ProviderMD Active busPIRone (Buspar) 10 mg tablet [id number] Take 1 tablet (10 mg) by mouth 3 times a day. Historical ProviderMD Active clopidogrel (Plavix) 75 mg tablet [id number] Yes Take 1 tablet (75 mg) by mouth early in the morning.. Historical ProviderMD Active dapagliflozin propanediol (Farxiga) 5 mg [id number] Yes Take 1 tablet (5 mg) by mouth once daily. Historical ProviderMD Active Be Herecom G6 Sensor device [id number] Yes USE DIRECTED FOR CONTINUOUS BLOOD GLUCOSE MONITORING, CHANGE SENSOR EVERY 10 DAYS Historical ProviderMD Active DULoxetine (Cymbalta) [address] capsule [id number] Take 1 capsule (60 mg) by mouth once daily. Historical ProviderMD Active Eliquis 5 mg tablet [id number] Take 1 tablet (5 mg) by mouth 2 times a day. Historical ProviderMD Active ergocalciferol (Vitamin D-2) 1250 mcg (50,000 units) capsule [id number] Yes Take 1 capsule (1,250 mcg) by mouth. Historical ProviderMD Active fenofibrate (Tricor) 54 mg tablet [id number] Take 1 tablet (54 mg) by mouth once daily. Historical ProviderMD Active furosemide (Lasix) 40 mg tablet [id number] Yes Take 1 tablet (40 mg) by mouth. Historical ProviderMD Active glimepiride (Amaryl) 4 mg tablet [id number] Yes Take 1 tablet (4 mg) by mouth early in the morning.. Historical ProviderMD Active glipiZIDE (Glucotrol) 5 mg tablet [id number] Yes Take 1 tablet (5 mg) by mouth. Historical ProviderMD Active HumuLIN R U-500, Conc, Insulin 500 unit/mL CONCENTRATED injection [id number] Yes INJECT 75 UNITS DAILY VIA CONTINUOUS SUBCUTANEOUS INFUSION. DISCARD VIAL AFTER 40 DAYS Historical ProviderMD Active Jardiance 25 mg [id number] Take 1 tablet (25 mg) by mouth once daily. Historical ProviderMD Active levothyroxine (Synthroid, Levoxyl) 112 mcg tablet [id number] Take 1 tablet (112 mcg) by mouth once daily. Historical ProviderMD Active lisinopril 40 mg tablet [id number] Take 1 tablet (40 mg) by mouth once daily. Historical ProviderMD Active metFORMIN (Glucophage) 500 mg tablet [id number] Take 1 tablet (500 mg) by mouth 2 times daily (morning and late afternoon). Historical ProviderMD Active metoprolol succinate XL (Toprol-XL) 100 mg 24 hr tablet [id number] TAKE 1 TABLET BY MOUTH DAILY for heart Historical ProviderMD Active Mucinex DM 60-1,200 mg tablet extended release 12 hr [id number] Yes Take 1 tablet by mouth every 12 hours. Historical ProviderMD Active oxyCODONE-acetaminophen (Percocet) 5-325 mg tablet [id number] Take 1 tablet by mouth 2 times a day as needed. Historical ProviderMD Active pantoprazole (ProtoNix) 40 mg EC tablet [id number] Yes Take 1 tablet (40 mg) by mouth. Historical ProviderMD Active potassium citrate CR (Urocit-K-10) 10 mEq ER tablet [id number] Yes Take 1 tablet (10 mEq) by mouth twice a day. Historical ProviderMD Active predniSONE (Deltasone) 20 mg tablet [id number] Yes Take 0.5 tablets (10 mg) by mouth early in the morning.. Historical ProviderMD Active spironolactone (Aldactone) 50 mg tablet [id number] Yes Take 1 tablet (50 mg) by mouth once daily. Historical ProviderMD Active tamsulosin (Flomax) 0.4 mg 24 hr capsule [id number] Take 1 capsule (0.4 mg) by mouth once daily. Historical ProviderMD Active traMADol (Ultram) 50 mg tablet [id number] Yes Take 1 tablet (50 mg) by mouth. Historical ProviderMD Active Drug Allergies/Intolerances: Not on File Review of Systems: All other review of systems are negative and/or non-contributory. Physical Examination: Vitals: 06/26/24 1110 BP: 157/78 Pulse: 76 Temp: 36.4 C (97.6 F) SpO2: 98% Constitutional: Alert and oriented. In no acute distress. Well developed, well nourished. Head and Face: Normal. Palpation of the face and sinuses: normal. Ear, Nose and throat: External inspection of the ear and nose: normal. Oropharynx: normal. Neck: Supple. No neck mass observed. Pulmonary: Chest is normal to inspection. No increased work of breathing or signs of respiratory distress. Normal auscultation. CV: Heart rate and rhythm were normal. Normal S1 and S2, no gallops, no murmurs and no pericardial rub. No peripheral edema. Abdomen: soft, nontender, no abdominal mass palpated. Lymphatic: no cervical lad. MSK: normal gait and station. No clubbing or cyanosis of the fingernails. Skin: Normal skin color and pigmentation, normal skin turgor, and no rash. Neurologic: Cranial nerves intact. Moving all 4 extremities. Psychiatric: Intact judgement and insight. Assessment and Plan / Recommendations: # ILD evaluation: -No known occupational exposure or exposure to suspect medication. -Concern for mold at home. Discussed inspection by professional company. -possibly related to RA -will obtain HRCT, PFTs and 6MWT -Workup for rheumatologic disease including RF, anti-ccp, RICARDO with reflex NEELA, ANCA, ESR, CRP, CPK, aldolase, myositis ab panel ordered on 06/26/2024. -will discuss AL on follow up. -Discussed antifibrotic therapy. Not a good candidate for Ofev given the need anticoagulation -Evaluation for comorbidities (KIANNA, GERD, aspiration, CAD, lung cancer screening etc.) as below -Vaccinations per his pcp # Diastolic Heart failure and PAH evaluation: -difficult to assess volume status given body habitus -will obtain echocardiogram to screen for PAH # Chronic hypoxic respiratory failure: -needs 4L at rest and 6L with exertion -multifactorial #KIANNA: -not compliant with his PAP therapy Encourage to be more compliant with his PAP # Obesity: -BMI > 40 Encouraged weight loss Follow-up: 1-2 months once above completed Rosalino Padron MD 06/26/2024 documented in this encounter [facility] Work Phone: 06-26-2024 Instructions Rosalino Padron MD - 06/26/2024 11:30 AM EDT Krunal Leos it was pleasure seeing you in clinic today. We discussed the following: You need repeat high resolution CT scan of your lungs, breathing test and walking test You will stop by the lab for a blood draw You need an echocardiogram of your heart We will give you an incentive spirometer to use at home You will get the house evaluated for black mold. You can contact BRITTANIE Garcia in [place], phone number is [phone] for a home inspection We will see you back in clinic in 1-2 months/weeks For scheduling purposes: Call to schedule a breathing or a walking test Call [phone] to schedule EKG's, Echocardiograms and Cardiopulmonary Stress Tests. Call [phone] to schedule Radiology tests such as Nuclear Medicine Stress Tests, CT Scans, and MRI's. Should you have any questions Please Call our pulmonary nurse Linda Marie at [phone] or my carpenter's assistant Puneet Leone at [phone] documented in this encounter [facility] Work Phone: 05-21-2024 Evaluation note Diagnosis Onset Date Resolution Interstitial lung disease acute May 21, 2024 10:41am Chronic diastolic CHF (congestive heart failure) chronic May 21 10:41am Essential (primary) hypertension chronic May 21 10:41am Dyspnea on exertion resolved 2024 10:41am Ischemic cerebrovascular accident (CVA) resolved May 21 10:41am Paroxysmal atrial fibrillation inactive May 21 10:41am Fatigue noneactive June 04 1:20pm Interstitial lung disease acute June 10, 2024 12:44pm Chronic diastolic CHF (congestive heart failure) chronic June 10, 2024 12:44pm Chronic respiratory failure with hypoxia chronic June 10, 2024 12:44pm Obesity chronic June 10 12:44pm KIANNA (obstructive sleep apnea) chronic June 10, 2024 12:44pm Rheumatoid factor positive chronic June 10, 2024 12:44pm Fatigue noneactive July 06 1:22pm Fatigue noneactive August 06, 2024 2:27pm Hyperlipidemia acute August 17, 2024 11:16am Ischemic cerebrovascular accident (CVA) resolved May 19th, 2025 11:16am Polyneuropathy inactive August 17, 2024 11:16am Fatigue noneactive August 17, 2024 11:16am Fatigue noneactive September 15 12:53pm [facility] Work Phone: [phone] Telephone encounter Note* Telephone Encounter - Oziel Culp MD - 05/08/2024 10:43 AM EST Spoke with Mr. Leos regarding results of PRU test. He confirms he has had no missed doses of clopidogrel, and given the laboratory findings he is a non- responder to this medication. Recommend to resume Eliquis, continue ASA, and discontinue clopidogrel. Will start Brilenta for stroke risk reduction and continue to aggressively manage his other medical issues. He is at high risk of stroke given the severe right MCA stenosis, and we will consider endovascularintervention should he fail this aggressive medical therapy. He is also at risk for bleeding given triple therapy, and he and his expressed understanding of all these risks. Will continue this regimen for at least 1 year and consider lifelong pending his clinical course. He is to call the office or 911 with any new stroke symptoms so we can consider endovascular interventions. Left a message with PCP to coordinate medication distribution, as she will likely be providing refills and managing other medical issues. Have not yet received return phone call, so will write initial prescriptions. RTC 6 months - 1 year. Sooner prn. MD Jose Antonio Entitle Work Phone: [phone] Miscellaneous Notes* Telephone Encounter - Oziel Culp MD - 05/08/2024 10:43 AM EST Spoke with Mr. Leos regarding results of PRU test. He confirms he has had no missed doses of clopidogrel, and given the laboratory findings he is a non- responder to this medication. Recommend to resume Eliquis, continue ASA, and discontinue clopidogrel. Will start Brilenta for stroke risk reduction and continue to aggressively manage his other medical issues. He is at high risk of stroke given the severe right MCA stenosis, and we will consider endovascularintervention should he fail this aggressive medical therapy. He is also at risk for bleeding given triple therapy, and he and his expressed understanding of all these risks. Will continue this regimen for at least 1 year and consider lifelong pending his clinical course. He is to call the office or 911 with any new stroke symptoms so we can consider endovascular interventions. Left a message with PCP to coordinate medication distribution, as she will likely be providing refills and managing other medical issues. Have not yet received return phone call, so will write initial prescriptions. RTC 6 months - 1 year. Sooner prstan Culp MD documented in this [facility]02-05-2025 Note* Perioperative Nursing Note - Mendel River RN - 05/06/2024 4:02 PM EST Phase 2 care completed. Iv removed and dc instructions provided. Will dc to home with family Right groin site benign and neuro unchanged [id number]* Perioperative Nursing Note - Mendel River RN - 05/06/2024 4:02 PM EST Phase 2 care completed. Iv removed and dc instructions provided. Will dc to home with family Right groin site benign and neuro unchanged [id number] Miscellaneous Notes* Perioperative Nursing Note - Mendel River RN - 05/06/2024 4:02 PM EST Phase 2 care completed. Iv removed and dc instructions provided. Will dc to home with family Right groin site benign and neuro unchanged [facility] 0 documented in this [facility]02-05-2025 NotePatient: Krunal Leos Procedure Summary Date: 05/06/24 Room / Location: [facility] Special Procedures Anesthesia Start: 124 Anesthesia Stop: 1409 Procedure: IR ANGIOGRAM CEREBRAL W POSSIBLE INTERVENTION Diagnosis: Ischemic cerebrovascular accident (CVA) (HCC) Bilateral carotid artery stenosis Scheduled Providers: Responsible Provider: Sundeep Telles DO Anesthesia Type: MAC ASA Status: 3 Anesthesia Type: MAC Vitals Value Taken Time BP 161/67 05/06/24 1500 Temp 97.8 05/06/24 1518 Pulse 63 05/06/24 1517 Resp 20 05/06/24 1415 SpO2 100 % 05/06/24 1517 Vitals shown include unfiled device data. Anesthesia Post Evaluation Patient location during evaluation: PACU Patient participation: complete - patient participated Level of consciousness: awake and alert Pain management: satisfactory to patient Airway patency: patent Dental Injury: no Cardiovascular status: acceptable, blood pressure returned to baseline and hemodynamically stable Respiratory status: acceptable and spontaneous ventilation Hydration status: euvolemic Nausea/Vomiting: controlled No notable events documented. Patient can be discharged once all PACU criteria has been met.[facility] [id number] NotePatient: Krunal Leos Procedure Summary Date: 05/06/24 Room / Location: [facility] Special Procedures Anesthesia Start: 1243 Anesthesia Stop: 1409 Procedure: IR ANGIOGRAM CEREBRAL W POSSIBLE INTERVENTION Diagnosis: Ischemic cerebrovascular accident (CVA) (HCC) Bilateral carotid artery stenosis Scheduled Providers: Responsible Provider: Sundeep Telles DO Anesthesia Type: MAC ASA Status: 3 Anesthesia Type: MAC Vitals Value Taken Time BP 161/67 05/06/24 1500 Temp 97.8 05/06/24 1517 Pulse 63 05/06/24 1517 Resp 20 05/06/24 1415 SpO2 100 % 05/06/24 1517 Vitals shown include unfiled device data. Anesthesia Post Evaluation Patient location during evaluation: PACU Patient participation: complete - patient participated Level of consciousness: awake and alert Pain score: 0 Pain management: satisfactory to patient Airway patency: patent Cardiovascular status: acceptable and hemodynamically stable Respiratory status: acceptable Hydration status: acceptable No notable events documented. MIPS #430 PONV Patient did not receive an inhalational anesthetic (XX430) MIPS # 424 Perioperative Temperature Management Anesthesia time was less than 60 minutes (4256F) MIPS #477 Multimodal Pain Management Not emergent case Patient was not administered multimodal pain management (G2149) Patient reports no pain in PACU (G2149) MIPS #404 Anesthesiology Smoking Abstinence The patient is not a current smoker (e.g. cigarette, cigar, pipe, e-cigarette/vaping/marijuana) If no stop here (XX404) I completed my handoff to the receiving clinician during which we: 1. Identified the patient 2. Identified the responsible provider 3. Reviewed the pertinent medical history 4. Discussed the surgical course 5. Reviewed intra-op anesthesia management and issues during anesthesia 6. Set expectations for post-procedure period 7. Allowed opportunity for questions and acknowledgement of understanding.[facility]02-05-2025 Nurse Note* Se Hensley RN - 05/06/2024 1:47 PM EST Patient arrived from home, Dr. Culp in to speak with the patient regarding DCA with possible carotid stenting, consent obtained. Patient was placed supine on exam table prepped and draped in sterile fashion. Telemetry monitors placed, sedation provided by INTERACTIVE MEDIA MARKETING DIRECTOR. Patient tolerated procedure well. [facility]. [id number] Nurse Note* Se Hensley RN - 05/06/2024 1:47 PM EST Patient arrived from home, Dr. Culp in to speak with the patient regarding DCA with possible carotid stenting, consent obtained. Patient was placed supine on exam table prepped and draped in sterile fashion. Telemetry monitors placed, sedation provided by INTERACTIVE MEDIA MARKETING DIRECTOR. Patient tolerated procedure well. Transfer to ICU. * Se Hensley RN - 05/05/2024 1:45 PM EST Report given to IR rn, neuro assessment completed along with groin site check. documented in this [facility]02-05-2025 Consult note* Rianna Yan MD - 05/06/2024 10:00 AM EST CONSULT NOTE: STROKE SERVICE Pt. Name: Krunal Leos Age: 58 y.o. : 1965 Room: Room/bed info not found Code Status: Prior Date of Admission: 05/06/2024 Date of Service: 05/06/2024 Current Hospital Day: Hospital Day: 1 Requesting/Referring Physican: Mey Loya, DEJUAN - * Reason for Consultation: R MCA stenosis Assessment & Plan: 58-year-old with recurrent cerebrovascular episodes referable to right MCA stenosis. Unfortunately he has continued to have episodes despite therapy with aspirin, Eliquis and clopidogrel. He is on high potency statin. He reports his hemoglobin A1c is around 7 and has been working to try to get better diabetic control. He is relatively compliant with CPAP machine and is actively addressing his sleep apnea with his new diagnosis of idiopathic pulmonary fibrosis. Thus he is working hard at aggressive risk factor management. It would be important to check P2 Y12 level to assure he is a Plavix responder. If he is not this would help assess why he has continued to have events despite triple therapy. Even if he is a responder, it would be reasonable to consider changing to Brilinta to see if he would respond to that considering his high- grade MCA stenosis. If he fails Brilinta in addition to aspirin and Eliquis, he would be a candidate for consideration of MCA stent placement. I did discuss with the patient and his that there is a risk of stroke with stent placement but also that he has a risk for stroke because of his high-grade stenosis without further intervention. They have elected to see what happens with the Brilinta and will have further conversations with Dr. Culp regarding stent placement. PLAN: 1. Obtain P2 Y12 study 2. [place] Brilinta 90 mg twice daily x 30 days then 60 mg twice daily 3. Discontinue Plavix 4. Continue high potency statin 5. Discussed aggressive management of diabetes, weight reduction and management of obstructive sleep apnea as risk factor modification to try to reduce further stroke History of Present Illness: Krunal Leos is a 58 y.o. male with a history of hypertension, hyperlipidemia, obesity, diabetes, obstructive sleep apnea, atrial fibrillation on anticoagulation and recent diagnosis of idiopathic pulmonary fibrosis, who underwent several angiography today for further evaluation of potential interven tion for stroke symptoms. In review his first event occurred in September 2023 when he was at a parade. He does endorse that he was probably dehydrated. He had the sudden onset of left facial and left arm weakness. EMS was at the parade and responded to him quickly. Unclear what his blood pressure was but symptoms resolved within 15 minutes. He was on aspirin 81 mg and Eliquis 5 mg twice daily with that event. He did not have any further medication changes but was recommended that he try to stay well-hydrated. October 2023: Had a recurrent episode of left face and arm weakness lasting 10 to 15 minutes. Was hospitalized at [place] and had Plavix added at that time. About 2 weeks later he had another episode and symptoms resolved in about 5 to 7 minutes. He thinks at that time fenofibrate was added to his regiment. He had been on high potency statin prior. Unclear if he had MRI imaging or not; family thinks he may have that demonstrated stroke. January 2024: Recurrent episode similar to his past ones of left face and arm weakness again lasting about 10 minutes. Symptoms resolved. He was again hospitalized at [facility]. No medicationchanges were made. April 2024: Recurrent episode of left face and arm weakness. Again lasting about 10 to 15 minutes. He is he was not managing his blood pressure well until the first event in September but he has been under better control since. He has lost 20 pounds since last year but does not truly follow a diabetic diet. He has tried GP L1 medications for weight loss and diabetic control but had nausea with them. He has obstructive sleep apnea and endorses being about 75% compliant with his CPAP machine. He was recently diagnosed with idiopathic pulmonary fibrosis and states that he needs to have a CPAP machine settings are altered because of that. He endorses he wears home oxygen nightly. Imaging personally reviewed: MRI September/2023: Only have access of isolated pictures per Dr. Connolly's note. It demonstrates watershed infarction right MCA distribution. MRA with both right MCA stenosis and mid basilar stenosis. Cerebral angiogram 05/06/2024: Severe right MCA stenosis involving M1. Left vertebral artery occludedat the origin. Basilar artery with multiple areas narrowing but none appeared high-grade. ROS: GENERAL: Pt denies F/C/N/V/D/Constipation. HEENT: Pt denies changes in vision or hearing, epistaxis, sore throat HEART: Pt denies chest pain, palpitations, SOB LUNGS: Dyspnea due to idiopathic pulmonary fibrosis ABDOMEN: Pt denies abdominal pain, N/V/D/C EXTREMITIES: Pt denies edema. SKIN: Pt denies rashes or sores. NASIM: Pt denies weakness or joint pain. NEURO: Pt denies numbness, tingling, weakness. : Pt denies pain with urination, increased frequency or hematuria. Past Medical History: Diagnosis Date A-fib (CMS/HCC) (HCC) Bilateral carotid artery stenosis BPH (benign prostatic hyperplasia) CHF (congestive heart failure) (HCC) Chronic idiopathic pulmonary fibrosis (HCC) CVA (cerebral vascular accident) (HCC) DM (diabetes mellitus), type 2 (HCC) HTN (hypertension) Hyperlipidemia Hypothyroid Insulin pump in place Supplemental oxygen dependent 4LNC resting 8LNC with exertion TIA (transient ischemic attack) History reviewed. No pertinent surgical history. Social History Socioeconomic History Marital status: Spouse name: Not on file Number of children: Not on file Years of education: Not on file Highest education level: Not on file Occupational History Not on file Tobacco Use Smoking status: Never Smokeless tobacco: Never Vaping Use Vaping status: Never Used Substance and Sexual Activity Alcohol use: Not Currently Drug use: Not Currently Sexual activity: Yes Other Topics Concern Not on file Social History Narrative Not on file Social Drivers of Health Financial Resource Strain: Not on file Food Insecurity: Not on file Transportation Needs: Not on file Physical Activity: Not on file Stress: Not on file Social Connections: Not on file Intimate Partner Violence: Not on file Housing Stability: Not on file No family history on file. Allergies Allergen Reactions Metoclopramide Anaphylaxis and Shortness of breath Current Medications: Scheduled aspirin, 81 mg, Oral, Daily clopidogrel, 75 mg, Oral, Daily Objective: BP (!) 169/68 Pulse 64 Temp (!) 35.9 C (96.7 F) Resp 20 SpO2 100% Physical Exam: General:The patient is pleasant and in no acute distress. Psychiatric: Normal affect. Neurological Exam: Mental Status: Alert and oriented. Able to name, repeat, read and follow complex commands without difficulty. Speech is normal. Cranial nerves: II-. Pupils are equal, round and reactive to light. Visual goldberg full to confrontation. III, IV and : Extraocular movements are intact. V- Sensation intact to light touch. VII- Face is symmetric bilaterally VIII- Hearing intact to voice. IX, X- Palate elevates symmetrically in the midline. XI- Able to turn head in both directions and shrug shoulders without difficulty. XII- Tongue protrudes in the midline. Motor exam Right Left Shoulder abduction 5 5 Elbow flexion 5 5 Wrist extension 5 5 Hip Flexion 5 5 Knee extension 5 5 Ankle dorsiflexion 5 5 Sensation is intact to light touch and temperature distally in all extremities. No neglect to double simultaneous extinction. Coordination: Finger to nose testing was normal bilaterally. Deep tendon reflexes: R L Biceps 1 1 Triceps 1 1 Brachioradialis 1 1 Knee 1 1 Ankle jerk 1 1 Station and Gait: Not assessed post procedure Electronically signed by: Rianna Yan MD, 05/06/2024, 3:15 PM I spent a total of 80 minutes personally providing face to face including physical exam of the patient, review of labs and imaging and other data, adjusting medications, and/or discussion of the patient with other physician review of their notes/orders; all to formulate a plan for the day, independent of any time spent teaching or performing any separately billable procedures. Greater than 50% oftime spent in counseling and coordination of care Cc: Mey Loya APRN - * [place] Phone: [phone]) 490-303302-05-2025 Consult note* Rianna Yan MD - 05/06/2024 10:00 AM EST CONSULT NOTE: STROKE SERVICE Pt. Name: Krunal Leos Age: 58 y.o. : 1965 Room: Room/bed info not found Code Status: Prior Date of Admission: 05/06/2024 Date of Service: 05/06/2024 Current Hospital Day: Hospital Day: 1 Requesting/Referring Physican: Mey Loya APRN - * Reason for Consultation: R MCA stenosis Assessment & Plan: 58-year-old with recurrent cerebrovascular episodes referable to right MCA stenosis. Unfortunately he has continued to have episodes despite therapy with aspirin, Eliquis and clopidogrel. He is on high potency statin. He reports his hemoglobin A1c is around 7 and has been working to try to get better diabetic control. He is relatively compliant with CPAP machine and is actively addressing his sleep apnea with his new diagnosis of idiopathic pulmonary fibrosis. Thus he is working hard at aggressive risk factor management. It would be important to check P2 Y12 level to assure he is a Plavix responder. If he is not this would help assess why he has continued to have events despite triple therapy. Even if he is a responder, it would be reasonable to consider changing to Brilinta to see if he would respond to that considering his high- grade MCA stenosis. If he fails Brilinta in addition to aspirin and Eliquis, he would be a candidate for consideration of MCA stent placement. I did discuss with the patient and his that there is a risk of stroke with stent placement but also that he has a risk for stroke because of his high-grade stenosis without further intervention. They have elected to see what happens with the Brilinta and will have further conversations with Dr. Culp regarding stent placement. PLAN: 1. Obtain P2 Y12 study 2. [place] Brilinta 90 mg twice daily x 30 days then 60 mg twice daily 3. Discontinue Plavix 4. Continue high potency statin 5. Discussed aggressive management of diabetes, weight reduction and management of obstructive sleep apnea as risk factor modification to try to reduce further stroke History of Present Illness: Krunal Leos is a 58 y.o. male with a history of hypertension, hyperlipidemia, obesity, diabetes, obstructive sleep apnea, atrial fibrillation on anticoagulation and recent diagnosis of idiopathic pulmonary fibrosis, who underwent several angiography today for further evaluation of potential interven tion for stroke symptoms. In review his first event occurred in September 2023 when he was at a parade. He does endorse that he was probably dehydrated. He had the sudden onset of left facial and left arm weakness. EMS was at the parade and responded to him quickly. Unclear what his blood pressure was but symptoms resolved within 15 minutes. He was on aspirin 81 mg and Eliquis 5 mg twice daily with that event. He did not have any further medication changes but was recommended that he try to stay well-hydrated. October 2023: Had a recurrent episode of left face and arm weakness lasting 10 to 15 minutes. Was hospitalized at [place] and had Plavix added at that time. About 2 weeks later he had another episode and symptoms resolved in about 5 to 7 minutes. He thinks at that time fenofibrate was added to his regiment. He had been on high potency statin prior. Unclear if he had MRI imaging or not; family thinks he may have that demonstrated stroke. January 2024: Recurrent episode similar to his past ones of left face and arm weakness again lasting about 10 minutes. Symptoms resolved. He was again hospitalized at [facility]. No medicationchanges were made. April 2024: Recurrent episode of left face and arm weakness. Again lasting about 10 to 15 minutes. He is he was not managing his blood pressure well until the first event in September but he has been under better control since. He has lost 20 pounds since last year but does not truly follow a diabetic diet. He has tried GP L1 medications for weight loss and diabetic control but had nausea with them. He has obstructive sleep apnea and endorses being about 75% compliant with his CPAP machine. He was recently diagnosed with idiopathic pulmonary fibrosis and states that he needs to have a CPAP machine settings are altered because of that. He endorses he wears home oxygen nightly. Imaging personally reviewed: MRI September/2023: Only have access of isolated pictures per Dr. Connolly's note. It demonstrates watershed infarction right MCA distribution. MRA with both right MCA stenosis and mid basilar stenosis. Cerebral angiogram 05/06/2024: Severe right MCA stenosis involving M1. Left vertebral artery occludedat the origin. Basilar artery with multiple areas narrowing but none appeared high-grade. ROS: GENERAL: Pt denies F/C/N/V/D/Constipation. HEENT: Pt denies changes in vision or hearing, epistaxis, sore throat HEART: Pt denies chest pain, palpitations, SOB LUNGS: Dyspnea due to idiopathic pulmonary fibrosis ABDOMEN: Pt denies abdominal pain, N/V/D/C EXTREMITIES: Pt denies edema. SKIN: Pt denies rashes or sores. NASIM: Pt denies weakness or joint pain. NEURO: Pt denies numbness, tingling, weakness. : Pt denies pain with urination, increased frequency or hematuria. Past Medical History: Diagnosis Date A-fib (CMS/HCC) (HCC) Bilateral carotid artery stenosis BPH (benign prostatic hyperplasia) CHF (congestive heart failure) (HCC) Chronic idiopathic pulmonary fibrosis (HCC) CVA (cerebral vascular accident) (HCC) DM (diabetes mellitus), type 2 (HCC) HTN (hypertension) Hyperlipidemia Hypothyroid Insulin pump in place Supplemental oxygen dependent 4LNC resting 8LNC with exertion TIA (transient ischemic attack) History reviewed. No pertinent surgical history. Social History Socioeconomic History Marital status: Spouse name: Not on file Number of children: Not on file Years of education: Not on file Highest education level: Not on file Occupational History Not on file Tobacco Use Smoking status: Never Smokeless tobacco: Never Vaping Use Vaping status: Never Used Substance and Sexual Activity Alcohol use: Not Currently Drug use: Not Currently Sexual activity: Yes Other Topics Concern Not on file Social History Narrative Not on file Social Drivers of Health Financial Resource Strain: Not on file Food Insecurity: Not on file Transportation Needs: Not on file Physical Activity: Not on file Stress: Not on file Social Connections: Not on file Intimate Partner Violence: Not on file Housing Stability: Not on file No family history on file. Allergies Allergen Reactions Metoclopramide Anaphylaxis and Shortness of breath Current Medications: Scheduled aspirin, 81 mg, Oral, Daily clopidogrel, 75 mg, Oral, Daily Objective: BP (!) 169/68 Pulse 64 Temp (!) 35.9 C (96.7 F) Resp 20 SpO2 100% Physical Exam: General:The patient is pleasant and in no acute distress. Psychiatric: Normal affect. Neurological Exam: Mental Status: Alert and oriented. Able to name, repeat, read and follow complex commands without difficulty. Speech is normal. Cranial nerves: II-. Pupils are equal, round and reactive to light. Visual goldberg full to confrontation. III, IV and : Extraocular movements are intact. V- Sensation intact to light touch. VII- Face is symmetric bilaterally VIII- Hearing intact to voice. IX, X- Palate elevates symmetrically in the midline. XI- Able to turn head in both directions and shrug shoulders without difficulty. XII- Tongue protrudes in the midline. Motor exam Right Left Shoulder abduction 5 5 Elbow flexion 5 5 Wrist extension 5 5 Hip Flexion 5 5 Knee extension 5 5 Ankle dorsiflexion 5 5 Sensation is intact to light touch and temperature distally in all extremities. No neglect to double simultaneous extinction. Coordination: Finger to nose testing was normal bilaterally. Deep tendon reflexes: R L Biceps 1 1 Triceps 1 1 Brachioradialis 1 1 Knee 1 1 Ankle jerk 1 1 Station and Gait: Not assessed post procedure Electronically signed by: Rianna Yan MD, 05/06/2024, 3:15 PM I spent a total of 80 minutes personally providing face to face including physical exam of the patient, review of labs and imaging and other data, adjusting medications, and/or discussion of the patient with other physician review of their notes/orders; all to formulate a plan for the day, independent of any time spent teaching or performing any separately billable procedures. Greater than 50% oftime spent in counseling and coordination of care Cc: Mey Loya APRN - * documented in this [facility]02-05-2025 NoteIVR History & Physical Inpatient consult to Anesthesiology-- Consult performed by: DEJUAN Leal CNP Consult ordered by: DEJUAN Mak CNP Name: Krunal Leos : 1965 (Age-58 y.o.) Date of Service: Pt seen/examined on 05/06/2024 Procedure Information Date/Time: 05/06/24 1000 Procedure: IR ANGIOGRAM CEREBRAL W POSSIBLE INTERVENTION Location: [facility] Special Procedures Chief Complaint: Carotid stenosis History Of Present Illness: We are asked to see/evaluate Krunal Leos, a 58 y.o. male for pre-procedure evaluation prior to IR ANGIOGRAM CEREBRAL W POSSIBLE INTERVENTION Krunal Leos has a h/o B ICA stenosis - discovered 09/2023 after presenting to the ED with c/o stoke like symptoms. Diagnostics revealed right MCA stenosis (severe), left vertebral artery occlusion, and basilar artery stenosis, hospital course noted below. Follow up CTA revealed 80% stenosis at the origin of the left internal carotid artery and 20% stenosis at the origin of the right internal carotid artery. Endorses moderate LUE weakness and short term memory loss. Proceeding with the above. 10/03/2023 Hospital Course: Denies exertional chest pain. Denies cardiac stents. METs limited d/t poor respiratory status and chronic back pain ANTICOAGULANT/ANTIPLATELET THERAPY: Yes, Eliquis, Aspirin, Plavix CHRONIC STEROID USE: No EK05/06/24 ECG 12-LEAD (Preliminary) This result has not been signed. Information might be incomplete. Impression Sinus rhythm Atrial premature complex LVH with IVCD and secondary repol abnrm Inferior infarct, age indeterminate ECHO and EF: No results found for this or any previous visit. Vitals: Vitals Value Taken Time BP 112/63 05/06/24 0835 Temp 35.9 ?C (96.7 ?F) 05/06/24 0835 Pulse 72 05/06/24 0835 Resp 20 05/06/24 0835 SpO2 95 % 05/06/24 0835 BMI Classification: Morbidly Obese (>40.0) ASSESSMENT/PLAN: Based on the above evaluation, the benefits of the planned procedure likely exceed the risks. The patient is medically optimized to proceed with the planned procedure without any further cardiopulmonary testing. 1) Ischemic cerebrovascular accident, Bilateral carotid artery stenosis - followed by Dr. Culp and Dr. Jauregui - CVA occurred 10/03/2023 - residual LUE weakness, short term memory loss - on Eliquis and aspirin--> held Eliquis and started plavix - to IR today for intervention #) HTN, Atrial fibrillation, CHF, Cardiac murmur - managed by cardiology in [place] - BP controlled and HR controlled - on lasix, lisinopril, and metoprolol - EKG above --> SR with PACs - reports stable weights, denies cardiac symptoms - euvolemic on exam - no echo on file BP Readings from Last 3 Encounters: 05/06/24 112/63 04/27/24 122/60 01/06/24 110/72 #) NSTEMI? - noted on chart review - pt denies dx, no stents #) Pulmonary fibrosis, Oxygen dependence, KIANNA - followed by pulmonology, 1-2 week appointments - recent diagnosis, working out medication regimen (awaiting insurance approval for oral medications) - on 4L NC daily, increased to 8L NC at HS and with activity - NAD noted, resting comfortably in bed - currently on steroid taper - unable to tolerate CPAP--> needs adjusted, upcoming sleepy study scheduled - d/t respiratory status he uses WC for long distances, but can complete ADLs at home and ambulate without assistance #) IDDM2 - managed by endocrinology - on insulin pump, basal rate of 4 units/hour --> reports BGT 100 this morning, instructed to shut pump off - reports home BGTs on CGM ~180's (more uncontrolled recently d/t recent steroid rx) - last A1C ~ 3 weeks ago 7.7 Lab Results Component Value Date HGBA1C 7.8 (H) 10/04/2023 #) GERD - controlled on PPI #) Thyroid disorder - on synthroid #) Chronic back pain, Opioid dependence - followed by [place] pain management - on percocet 5/325mg TID prn (typically only takes 1/day, but varies based on activity level) #) Anemia - managed by hematology, q6 month appointments - denies bleeding -on iron supplements #) Lipid disorder - on statin therapy and Tricor #) Mood disorder - reports mood stable on current regimen - denies SI/SH #) History of Hodgkin's Lymphoma - remote, dx in 80's - s/p chemotherapy and radiation tx - remission Labs Ordered: YES - Per IVR EKG Ordered: YES REVIEW OF SYSTEMS: Review of Systems Constitutional: Negative for chills and fever. HENT: Negative for trouble swallowing. Eyes: Negative for visual disturbance. Respiratory: Negative for chest tightness and shortness of breath. 4L NC Cardiovascular: Positive for leg swelling (trace, at baseline). Negative for chest pain and palpitations. Gastrointestinal: Negative for abdominal pain, nausea and vomiting. Genitourinary: Negative for difficulty urinating and hematuria. Musculoskeletal: Positive for back pain (chronic). Negative for gait problem. Skin (more content not included)...[facility]02-05-2025 Note Patient: Krunal Leos Procedure Information Date/Time: 05/06/24 1000 Procedure: IR ANGIOGRAM CEREBRAL W POSSIBLE INTERVENTION Location: [facility] Special Procedures Relevant Problems Anesthesia (+) History of non-ST elevation myocardial infarction (NSTEMI) (+) Obstructive sleep apnea syndrome Cardio (+) Congestive heart failure (HCC) (+) Hyperlipidemia (+) Paroxysmal atrial fibrillation (HCC) (+) Primary hypertension (+) Stenosis of carotid artery Endo (+) Hypothyroidism (+) 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 with hyperglycemia (HCC) (+) Type II diabetes mellitus with complication (CMS/HCC) (HCC) /Renal (+) Benign prostatic hyperplasia with urinary obstruction (+) Calculus of kidney (+) Chronic kidney disease (+) Congenital cystic kidney disease Neuro/Psych (+) Cerebrovascular accident (CVA), unspecified mechanism (HCC) (+) Ischemic cerebrovascular accident (CVA) (HCC) Pulmonary (+) Obstructive sleep apnea syndrome Cardiovascular (+) Stenosis of carotid artery Other (+) Hodgkin lymphoma (HCC) Past Medical History: Past Medical History: No date: A-fib (CMS/HCC) ([facility]) No date: Bilateral carotid artery stenosis No date: BPH (benign prostatic hyperplasia) No date: CHF (congestive heart failure) ([facility]) No date: Chronic idiopathic pulmonary fibrosis ([facility]) No date: CVA (cerebral vascular accident) ([facility]) No date: DM (diabetes mellitus), type 2 ([facility]) No date: HTN (hypertension) No date: Hyperlipidemia No date: Hypothyroid No date: Insulin pump in place No date: Supplemental oxygen dependent Comment: 4LNC resting 8LNC with exertion No date: TIA (transient ischemic attack) Past Surgical History: No past surgical history on file. Social History: TOBACCO: reports that he has never smoked. He has never used smokeless tobacco. ETOH: reports that he does not currently use alcohol. Social History Substance and Sexual Activity Drug Use Not Currently Family History: No family history on file. Screening: unknown Clinical information reviewed: Tobacco Allergies Meds Med Hx Surg Hx Fam Hx Soc Hx Physical Exam Airway Mallampati: III TM distance: >3 FB Neck ROM: full Mouth Open: normalendotracheal tube not in place Cardiovascular Rhythm: regular Rate: normal (+) murmur Dental (+) Missing Comments: Missing towards the back both sides, denies loose Pulmonary Comments: 4L NC Abdominal Anesthesia Plan patient is NPO appropriate Any family history or previous problems with anesthesia no ASA 3 MAC Any family history or previous problems with anesthesia no The patient is not a current smoker. Anesthetic plan and risks discussed with patient and spouse. Anesthesia Pradhan Considerations Pulm fibrosis/Oxygen dependence - 4L NC during the day, 8L HS and with activity CHF - no echo on file, yearly appointments with pattern clerk in [place] DM2 - on insulin pump, has basal rate (shut pump off at 08:40am) CVA - LUE weakness, short term memory loss Chronic pain - on percocet daily KIANNA Screening Labs: Lab Results Component Value Date WBC 11.1 (H) 05/06/2024 HGB 9.0 (L) 05/06/2024 HCT 30.1 (L) 05/06/2024 MCV 75.3 (L) 05/06/2024 PLT 243 05/06/2024 Lab Results Component Value Date NA 134 (L) 05/06/2024 K 3.9 05/06/2024 CL 103 05/06/2024 CO2 22 05/06/2024 BUN 31 (H) 05/06/2024 CREATININE 0.96 05/06/2024 GLUCOSE 107 (H) 05/06/2024 CALCIUM 8.5 (L) 05/06/2024 PROT 8.0 10/05/2023 ALKPHOS 101 10/05/2023 AST 29 10/05/2023 ALT 21 10/05/2023 EGFR >90.0 05/06/2024 Pain Score: 0 - No pain No echocardiogram results found for the past 14 days 05/06/24 ECG 12-LEAD (Preliminary) This result has not been signed. Information might be incomplete. Impression Sinus rhythm Atrial premature complex LVH with IVCD and secondary repol abnrm Inferior infarct, age indeterminate Equipment Requests: [facility] Nurse Note* Se Hensley RN - 05/05/2024 1:45 PM EST Report given to IR rn, neuro assessment completed along with groin site check. [facility] [id number] History of Present illness Narrative* Suzy Jauregui MD - 04/27/2024 3:00 PM EST Vascular Surgery Office Visit Chief Complaint Patient presents with Follow-up discuss carotid duplex 04/06/23 HISTORY OF PRESENT ILLNESS: The patient is a 58 y.o. male who returns for follow-up of carotid artery disease. He was previously seen in the hospital while admitted for stroke-like symptoms including left arm weakness and facial weakness. At that time he was found to have right MCA stenosis (severe), left vertebral artery occlusion, and basilar artery stenosis. Carotid duplex at that time noted < 50% stenosis on the right and 50-59% stenosis on the left. He was ultimately discharged home on Eliquis and 81 mg ASA. His CTA was repeated in January and this noted an 80% stenosis at the origin of the left internal carotid artery and 20% stenosis at the origin of the right internal carotid artery. He is currently scheduled to undergo cerebral angiography with Dr. Culp on 05/06/2024. He presented to the ED this past weekend with recurrence of his symptoms with facial droop and leftarm weakness, despite compliance with his medications. This has since resolved. Imaging was reviewed and is available in PACS. It appears similar to the January study on my review. He denies right sided symptoms. His family is present for today's visit and notes that he has recently been diagnosedwith severe pulmonary disease and has been given a timeline of approximately 5 years of life remaining. Past Medical History: CKD, HTN DM, hypothyroid Obesity, BPH, Afib, Lymphoma s/p chemotherapy and neck radiation. Past Surgical History: VATS for empyema, Percutaneous nephrostolithotomy Current Medications: Prior to Admission medications Medication Sig Start Date End Date Taking? Authorizing Provider amLODIPine (Norvasc) 5 MG tablet Take 5 mg by mouth daily. 10/01/23 Historical Provider, apixaban (Eliquis) 5 MG tablet Take 1 tablet (5 mg) by mouth 2 times daily. 10/05/23 Harmeet Stallworth MD aspirin 325 MG tablet Take 325 mg by mouth in the morning. Historical Provider, aspirin 81 MG chewable tablet 81 mg. 10/01/23 Historical Provider, atorvastatin (Lipitor) 80 MG tablet Take 1 tablet (80 mg) by mouth Nightly. 10/05/23 11/04/23 Harmeet Stallworth MD betamethasone, augmented, (Diprolene) 0.05 % lotion APPLY TO RASH ON THE TRUNK OR SCALP 1-2 TIMES DAILY NEEDED 08/13/23 Historical Provider, busPIRone (Buspar) 10 MG tablet Take 1 tablet (10 mg) by mouth 3 times daily. 10/05/23 11/04/23 Harmeet Stallworth MD clopidogrel (Plavix) 75 MG tablet Take 75 mg by mouth daily. 12/31/23 Historical Provider, Continuous Glucose Sensor (Dexcom G6 Sensor) mis Dexcom G6 Sensor [facility], USE DIRECTED FOR CONTINUOUS BLOOD GLUCOSE MONITORING, CHANGE SENSOR EVERY 10 DAYS 10/01/23 Historical Provider, dapagliflozin (Farxiga) 5 MG tablet Take 1 tablet (5 mg) by mouth daily. Do not start before October 06, 2023. 10/06/23 01/06/24 Harmeet Stallworth MD dilTIAZem CD (Cardizem CD) 120 MG 24 hr capsule Take 120 mg by mouth daily. 05/07/23 Historical Provider, doxycycline (Vibramycin) 100 MG capsule Take 100 mg by mouth 2 times daily. 06/10/23 Historical Provider, DULoxetine (Cymbalta) [address] capsule Take 1 capsule (60 mg) by mouth daily. Do not crush or chew.Do not start before October 06, 2023. 10/06/23 01/06/24 Harmeet Stallworth MD ergocalciferol (Vitamin D2) 1.25 MG (14296 UT) capsule Take 1 capsule by mouth 1 (one) time per week. 04/05/23 Historical Provider, fenofibrate (Tricor) 54 MG tablet 10/14/23 Historical Provider, furosemide (Lasix) 40 MG tablet Take 1 tablet (40 mg) by mouth in the morning and 1 tablet (40 mg) in the evening. 10/05/23 01/06/24 Harmeet Stallworth MD glimepiride (Amaryl) 4 MG tablet Take 4 mg by mouth daily. 10/01/23 Historical Provider, glipiZIDE (Glucotrol) 5 MG tablet Take 1 tablet (5 mg) by mouth every morning (before breakfast). Do not start before October 06, 2023. 10/06/23 01/06/24 Harmeet Stallworth MD HYDROcodone-acetaminophen (Billings) 5-325 MG tablet Take 1 tablet by mouth 2-3 times daily as needed for pain 02/14/23 Historical Provider, insulin regular (HumuLIN R,NovoLIN R) 100 UNIT/ML injection Inject 0.2 mL (20 Units) under the skinin the morning and 0.2 mL (20 Units) at noon and 0.2 mL (20 Units) in the evening. Inject with meals. 10/05/23 11/04/23 Harmeet Stallworth MD Jardiance 25 MG 25 mg. 12/10/22 Historical Provider, levothyroxine (Synthroid, Levoxyl) 112 MCG tablet Take 1 tablet (112 mcg) by mouth every morning (before breakfast). Do not start before October 06, 2023. 10/06/23 01/06/24 Harmeet Stallworth MD metFORMIN (Glucophage) 500 MG tablet Take 500 mg by mouth in the morning and 500 mg in the evening.Take with meals. Historical Provider, metoprolol succinate XL (Toprol-XL) 100 MG 24 hr tablet Take 1 tablet (100 mg) by mouth daily. Do not crush or chew. Do not start before October 06, 2023. 10/06/23 01/06/24 Harmeet Stallworth MD pantoprazole (ProtoNix) 40 MG EC tablet Take 1 tablet (40 mg) by mouth every morning (before breakfast). Do not crush, chew, or split. Do not start before October 06, 2023. 10/06/23 01/06/24 Harmeet Stallworth MD potassium citrate CR (Urocit-K-10) 10 mEq ER tablet Take 10 mEq by mouth 2 times daily. 01/16/23 Historical Provider, spironolactone (Aldactone) 50 MG tablet Take 50 mg by mouth daily. 09/06/23 Historical Provider, tamsulosin (Flomax) 0.4 MG 24 hr capsule Take 0.4 mg by mouth daily. 12/11/23 Historical ProviderMD traMADol (Ultram) 50 MG tablet Take 50 mg by mouth. 12/10/22 Historical Provider, Allergies: Metoclopramide Social History Socioeconomic History Marital status: Spouse name: Not on file Number of children: Not on file Years of education: Not on file Highest education level: Not on file Occupational History Not on file Tobacco Use Smoking status: Never Smokeless tobacco: Never Substance and Sexual Activity Alcohol use: Not Currently Drug use: Not Currently Sexual activity: Not on file Other Topics Concern Not on file Social History Narrative Not on file Social Drivers of Health Financial Resource Strain: Not on file Food Insecurity: Not on file Transportation Needs: Not on file Physical Activity: Not on file Stress: Not on file Social Connections: Not on file Intimate Partner Violence: Not on file Housing Stability: Not on file No family history on file. Review of Systems Constitutional: Negative. HENT: Negative. Eyes: Negative. Respiratory: Positive for apnea and shortness of breath (4L O2). Cardiovascular: Palpitations: Hx of AFIB. Gastrointestinal: Negative. Endocrine: Negative. Genitourinary: Negative. Musculoskeletal: Positive for gait problem (wheelchair). Skin: Negative. Neurological: Positive for dizziness (ocassionally), weakness (left side) and numbness (neuorpathy). Hematological: Negative. Psychiatric/Behavioral: Negative. LABS: Lab Results Component Value Date CREATININE 0.89 10/05/2023 Lab Results Component Value Date WBC 9.9 10/05/2023 HGB 11.3 (L) 10/05/2023 HCT 36.7 (L) 10/05/2023 MCV 75.7 (L) 10/05/2023 PLT 221 10/05/2023 Lab Results Component Value Date INR 1.0 10/04/2023 PROTIME 10.9 10/04/2023 No results found for: VLDL CONSTITUTIONAL: awake, alert, cooperative, no apparent distress NECK: Supple, symmetrical, trachea midline, no adenopathy LUNGS: No accessory muscle use. He is on oxygen at baseline via nasal cannula. CARDIOVASCULAR: Regular rate and rhythm ABDOMEN: Soft, non-distended CHEST: no obvious deformity GENITAL/URINARY: Not examined MUSCULOSKELETAL: There is no redness, warmth, or swelling of the joints. Full range of motion noted. NEUROLOGIC: Awake, alert, oriented to name, place and time.No facial droop present. Appropriate word finding and though content. SKIN: normal skin color, texture, no redness, warmth, or swelling. 5/5 strength in all extremities. RADIOLOGY: CTA performed 02/06/2024: Calcified stenosis of approximately 80% at the origin of the left internal carotid artery. Carotid duplex performed 04/07/2024: 1. There is new significant elevation in the left common carotid artery suggesting a proximal common carotid significant stenosis greater than 50 percent luminal narrowing. 2. Further stenosis likely present within the proximal left internal carotid artery in the range ofgreater than 50 percent luminal narrowing 3. No hemodynamically significant stenosis in the right internal carotid artery 4. Incidental severe stenosis at the origin of the right external carotid artery. 5. Patent vertebral arteries Carotid duplex performed 10/04/2023: <50% stenosis in the right internal carotid artery. Calcific plaque (proximal) in the right internal carotid artery. Right External Carotid Artery: >50% stenosis. Moderate and heterogeneous plaque (proximal). Normal antegrade flow involving the right vertebral artery. <50% stenosis in the left internal carotid artery. Mild, heterogeneous and calcific plaque (proximal) in the left internal carotid artery. Left Subclavian Artery: >50% stenosis. Moderate and heterogeneous plaque. Subclavian has turbulent flow. Normal antegrade flow involving the left vertebral artery. IMPRESSION/RECOMMENDATIONS: Problem List Items Addressed This Visit None The patient has a complicated picture as his symptoms would suggest a right hemispheric TIA/stroke however he has no significant internal carotid stenosis (although MCA stenosis is noted on previous imaging on the right). He has a significant left carotid stenosis however he demonstrates no symptoms consistent from a left carotid source. He is currently scheduled for cerebral angiography with on 05/06/24. I suspect his ongoing symptoms are related to his right MCA intracranial stenosis (noted on prior imaging and most recent CT from [facility]) and not his right carotid artery. It is also possible that this is related to his atrial fibrillation however he is antic oagulated for this and consistent with his medications. I agree with cerebral angiography, especially given his ongoing symptoms and noted left carotid stenosis of >70% with discordant duplex and CTA results. Additionally, given his history of neck radiation, endarterectomy would not be appropriate. Avoidance of general anesthesia would be most appropriate is possible given his severe lung disease. I recommend he continue with his planned cerebral angiography. All questions were answered about the procedure. I will reach out to Dr. Culp so he is updated on the patient's most recent symptoms. Will establish follow up pending results of cerebral angiography. Suzy Jauregui MD Vascular Surgery documented in this [facility]01-25-2025 [facility]01-23-2025 Note* Care Coordination - Coreen Clifton RN - 04/23/2024 11:38 AM EST Spoke with patient. Reviewed instructions for procedure. Aware of arrival time at 0800 am to Same Day Surgery (SDS) on 05/06/24, nothing to eat after 0000, may have clear liquids (black coffee, tea, juices without pulp, gatorade, gingerale or water) up until 2 hours prior to procedure, and call back # for questions and/or concerns. It is ok to take your morning medications as discussed with ordering physician. If you are taking any medication for diabetes, please discuss with your physician for instructions to follow prior to the scheduled procedure since you will not be eating at least 8 hours prior to the procedure. Will need a responsible adult family member or friend to drive you home after the procedure is completed. May not use public transportation unless accompanied by a responsible adult family member or friend. Questions answered. Verbalized understanding. Directions given for Same Day Surgery. Follow signs around the hospital to Main Entrance which islocated at [address] [facility] [place] [address] Turn onto [address] from [facility]. You may use [employer]. Each patient to receive one validation ticket for [employer]. It is also possible to park in the Main Parking Garage. Proceed to bridge into hospital and check in with Same Day Surgery. [id number] NoteSpoke with patient. Reviewed instructions for procedure. Aware of arrival time at 0800 am to Same Day Surgery (SDS) on 05/06/24, nothing to eat after 0000, may have clear liquids (black coffee, tea, juices without pulp, gatorade, gingerale or water) up until 2 hours prior to procedure, and call back # for questions and/or concerns. It is ok to take your morning medications as discussed with ordering physician. If you are taking any medication for diabetes, please discuss with your physician for instructions to follow prior to the scheduled procedure since you will not be eating at least 8 hours prior to the procedure. Will need a responsible adult family member or friend to drive you home after the procedure is completed. May not use public transportation unless accompanied by a responsible adult family member or friend. Questions answered. Verbalized understanding. Directions given for Same Day Surgery. Follow signs around the hospital to Main Entrance which is located at [address] from [facility] [address]. You may use [employer]. Each patient to receive one validation ticket for [employer]. It is also possible to park in the Main Parking Garage. Proceed to bridge into hospital and check in with Same Day Surgery.[facility]01-23-2025 Miscellaneous Notes* Care Coordination - Coreen Clifton RN - 04/23/2024 11:38 AM EST Spoke with patient. Reviewed instructions for procedure. Aware of arrival time at 0800 am to Same Day Surgery (SDS) on 05/06/24, nothing to eat after 0000, may have clear liquids (black coffee, tea, juices without pulp, gatorade, gingerale or water) up until 2 hours prior to procedure, and call back # for questions and/or concerns. It is ok to take your morning medications as discussed with ordering physician. If you are taking any medication for diabetes, please discuss with your physician for instructions to follow prior to the scheduled procedure since you will not be eating at least 8 hours prior to the procedure. Will need a responsible adult family member or friend to drive you home after the procedure is completed. May not use public transportation unless accompanied by a responsible adult family member or friend. Questions answered. Verbalized understanding. Directions given for Same Day Surgery. Follow signs around the hospital to Main Entrance which islocated at [address] from [facility] [address]. You may use [employer]. Each patient to receive one validation ticket for [employer]. It is also possible to park in the Main Parking Garage. Proceed to bridge into hospital and check in with Same Day Surgery. documented in this [facility]01-22-2025 Evaluation note* Diagnosis Onset Date Resolution Status Admit Date Interstitial lung disease acute April 22, 2024 10:03am Chronic diastolic CHF (congestive heart failure) chronic 2024 10:03am Chronic respiratory failure with hypoxia chronic April 22 10:03am Obesity chronic April 22, 2024 10:03am KIANNA (obstructive sleep apnea) chroni c April 22, 2024 10:03am Rheumatoid factor positive chronic April 22, 2024 10:03am Sleep apnea chronic April 22, 2024 10:03am CVA (cerebral vascular accident) resolved April 24 8:27pm Fatigue noneactive April 30, 2024 10:53am Interstitial lung disease acute April 30, 2024 1:24pm Essential (primary) hypertension chronic April 30 1:24pm Ischemic cerebrovascular accident (CVA) chronic April 30 1:24pm Dyspnea on exertion resolved 2024 1:24pm Paroxysmal atrial fibrillation inact nicole April 30, 2024 1:24pm Ischemic cerebrovascular accident (CVA) chronic April 30 2:09pm Interstitial lung disease acute May 01, 2024 1:36pm Chronic diastolic CHF (congestive heart failure) chronic 2024 1:36pm Chronic respiratory failure with hypoxia chronic May 01 1:36pm Obesity chronic May 01, 2024 1:36pm KIANNA (obstructive sleep apnea) chroni c May 01, 2024 1:36pm Rheumatoid factor positive chronic May 01, 2024 1:36pm Iron deficiency anemia due t o chronic blood loss inactive May 05, 2024 12:39pm Interstitial lung disease acute May 21, 2024 10:41am Chronic diastolic CHF (congestive heart failure) chronic 2024 10:41am Essential (primary) hypertension chronic May 21 10:41am Ischemic cerebrovascular accident (CVA) chronic May 21 10:41am Dyspnea on exertion resolved 2024 10:41am Paroxysmal atrial fibrillation inact nicole May 21, 2024 10:41am Fatigue noneactive June 04 1:20pm Interstitial lung disease acute June 10, 2024 12:44pm Chronic diastolic CHF (congestive heart failure) chronic June 10, 2024 12:44pm Chronic respiratory failure with hypoxia chronic June 10, 2024 12:44pm Obesity chronic June 10 12:44pm KIANNA (obstructive sleep apnea) chroni c June 10, 2024 12:44pm Rheumatoid factor positive chronic June 10, 2024 12:44pm Fatigue noneactive July 06 1:22pm Fatigue noneactive August 06, 2024 2:27pm Hyperlipidemia acute August 17, 2024 11:16am [facility] Work Phone: 1(580) 262-768101-16-2025 Evaluation note* Diagnosis Onset Date Resolution Status Admit Date CKD (chronic kidney disease) chronic April 16, 2024 9:21am Diabetes chronic April 16, 2024 9:21am Essential (primary) hypertension chronic April 16 9:21am Hypothyroidism chronic April 162024 9:21am Insulin pump titration [facility]2024 9:21am Obesity chronic April 16, 2024 9:21am Presence of insulin pump chronic April 16, 2024 9:21am Interstitial lung disease acute April 22, 2024 10:03am Chronic diastolic CHF (congestive heart failure) chronic 2024 10:03am Chronic respiratory failure with hypoxia chronic April 22 10:03am Obesity chronic April 22, 2024 10:03am KIANNA (obstructive sleep apnea) chroni c April 22, 2024 10:03am Rheumatoid factor positive chronic April 22, 2024 10:03am Sleep apnea chronic April 22, 2024 10:03am CVA (cerebral vascular accident) resolved April 24 8:27pm Fatigue noneactive April 30, 2024 10:53am Interstitial lung disease acute April 30, 2024 1:24pm Essential (primary) hypertension chronic April 30 1:24pm Ischemic cerebrovascular accident (CVA) chronic April 30 1:24pm Dyspnea on exertion resolved 2024 1:24pm Paroxysmal atrial fibrillation inact nicole April 30, 2024 1:24pm Ischemic cerebrovascular accident (CVA) chronic April 30 2:09pm Interstitial lung disease acute May 01, 2024 1:36pm Chronic diastolic CHF (congestive heart failure) chronic 2024 1:36pm Chronic respiratory failure with hypoxia chronic May 01 1:36pm Obesity chronic May 01, 2024 1:36pm KIANNA (obstructive sleep apnea) chroni c May 01, 2024 1:36pm Rheumatoid factor positive chronic May 01, 2024 1:36pm Iron deficiency anemia due t o chronic blood loss inactive May 05, 2024 12:39pm Interstitial lung disease acute May 21, 2024 10:41am Chronic diastolic CHF (congestive heart failure) chronic 2024 10:41am Essential (primary) hypertension chronic May 21 10:41am Ischemic cerebrovascular accident (CVA) chronic May 21 10:41am Dyspnea on exertion resolved 2024 10:41am Paroxysmal atrial fibrillation inact nicole May 21, 2024 10:41am Fatigue noneactive June 04 1:20pm Interstitial lung disease acute June 10, 2024 12:44pm Chronic diastolic CHF (congestive heart failure) chronic June 10, 2024 12:44pm Chronic respiratory failure with hypoxia chronic June 10, 2024 12:44pm Obesity chronic June 10 12:44pm KIANNA (obstructive sleep apnea) chroni c June 10, 2024 12:44pm Rheumatoid factor positive chronic June 10, 2024 12:44pm Fatigue noneactive July 06 1:22pm Fatigue noneactive August 06, 2024 2:27pm [facility] Work Phone: 1(228) 273-268701-15-2025 [facility]01-12-2025 Evaluation note* Diagnosis Onset Date Resolution Status Admit Date Chronic respiratory failure with hypoxia chronic April 12 1:25pm Acute hypoxemic respiratory failure inactive April 12 1:25pm CHF (congestive heart failure) inact nicole April 12, 2024 1:25pm CKD (chronic kidney disease) chronic April 16, 2024 9:21am Diabetes chronic April 16, 2024 9:21am Essential (primary) hypertension chronic April 16 9:21am Hypothyroidism chronic April 162024 9:21am Insulin pump titration chronic [facility] 2024 9:21am Obesity chronic April 16, 2024 9:21am Presence of insulin pump chronic April 16, 2024 9:21am Interstitial lung disease acute April 22, 2024 10:03am Chronic diastolic CHF (congestive heart failure) chronic 2024 10:03am Chronic respiratory failure with hypoxia chronic April 22 10:03am Obesity chronic April 22, 2024 10:03am KIANNA (obstructive sleep apnea) chroni c April 22, 2024 10:03am Rheumatoid factor positive chronic April 22, 2024 10:03am Sleep apnea chronic April 22, 2024 10:03am CVA (cerebral vascular accident) resolved April 24 8:27pm Fatigue noneactive April 30, 2024 10:53am Interstitial lung disease acute April 30, 2024 1:24pm Essential (primary) hypertension chronic April 30 1:24pm Ischemic cerebrovascular accident (CVA) chronic April 30 1:24pm Dyspnea on exertion resolved 2024 1:24pm Paroxysmal atrial fibrillation inact nicole April 30, 2024 1:24pm Ischemic cerebrovascular accident (CVA) chronic April 30 2:09pm Interstitial lung disease acute May 01, 2024 1:36pm Chronic diastolic CHF (congestive heart failure) chronic 2024 1:36pm Chronic respiratory failure with hypoxia chronic May 01 1:36pm Obesity chronic May 01, 2024 1:36pm KIANNA (obstructive sleep apnea) chroni c May 01, 2024 1:36pm Rheumatoid factor positive chronic May 01, 2024 1:36pm Iron deficiency anemia due t o chronic blood loss inactive May 05, 2024 12:39pm Interstitial lung disease acute May 21, 2024 10:41am Chronic diastolic CHF (congestive heart failure) chronic 2024 10:41am Essential (primary) hypertension chronic May 21 025 10:41am Ischemic cerebrovascular accident (CVA) chronic May 21 10:41am Dyspnea on exertion resolved 2024 10:41am Paroxysmal atrial fibrillation inact nicole May 21, 2024 10:41am Fatigue noneactive June 04 1:20pm Interstitial lung disease acute June 10, 2024 12:44pm Chronic diastolic CHF (congestive heart failure) chronic June 10, 2024 12:44pm Chronic respiratory failure with hypoxia chronic June 10, 2024 12:44pm Obesity chronic June 10 12:44pm KIANNA (obstructive sleep apnea) chroni c June 10, 2024 12:44pm Rheumatoid factor positive chronic June 10, 2024 12:44pm Fatigue noneactive July 06 1:22pm Fatigue noneactive August 06, 2024 2:27pm [facility] [employer] Work Phone: 1(691) 540-764912-27-2024 [facility]12-04-2024 [facility]11-13-2024 Telephone encounter Note* Telephone Encounter - DEJUAN Mak CNP - 02/12/2024 10:29 AM EST Notes and imaging reviewed with Dr. Culp. The left internal carotid artery has approximately 80% stenosis of the left internal carotid artery. We will plan for diagnostic cerebral angiogram withintent to stent the left internal carotid artery. The patient will need to continue aspirin 81 mg daily. Five days prior to surgery he should hold Eliquis. He will start Plavix 75mg daily 5 days prior to procedure in addition to his aspirin 81 mg. Pending the results of angiogram we will determine when to resume Eliquis. [facility] Work Phone: 1(362) 116-275511-13-2024 Miscellaneous Notes* Telephone Encounter - DEJUAN Mak CNP - 02/12/2024 10:29 AM EST I'll give him a call. Plan is for angiogram with possible stent * Telephone Encounter - Lisa Sandoval - 02/12/2024 9:13 AM EST This patient left a voicemail returning a call regarding his test results with Dr. Hutton Please advise:) * Telephone Encounter - Ena Enriquez - 02/06/2024 7:52 AM EST Name of caller: Megan Contact phone number: [phone] Relationship to Patient: care team amanda Provider: Jose Antonio Practice: Endovascular Chief Complaint/Reason for Call: please send all lab work from September to fax [phone] [facility] Best time of day caller can be reached: any Patient advised that office/PCP has 24-48 business hours to return their call: No documented in this [facility]11-13-2024 Miscellaneous Notes* Telephone Encounter - DEJUAN Mak CNP - 02/12/2024 10:29 AM EST Notes and imaging reviewed with Dr. Culp. The left internal carotid artery has approximately 80% stenosis of the left internal carotid artery. [facility]. The patient will need to continue aspirin 81 mg daily. Five days prior to surgery he should hold Eliquis. He will start Plavix 75mg daily 5 days prior to procedure in addition to his aspirin 81 mg. Pending the results of angiogram we will determine when to resume Eliquis. * Telephone Encounter - Lisa Sandoval - 02/12/2024 9:13 AM EST This patient left a voicemail returning a call regarding his test results with Dr. Hutton Please advise:) * Telephone Encounter - Ena Enriquez - 02/06/2024 7:52 AM EST Name of caller: Megan Contact phone number: [phone] Relationship to Patient: care team amanda Provider: Jose Antonio Practice: Endovascular Chief Complaint/Reason for Call: please send all lab work from September to fax [phone] [facility] Best time of day caller can be reached: any Patient advised that office/PCP has 24-48 business hours to return their call: No documented in this [facility]11-13-2024 Telephone encounter Note* Telephone Encounter - Lisa Sandoval - 02/12/2024 9:13 AM EST This patient left a voicemail returning a call regarding his test results with Dr. Hutton Please advise:) [id number] Tele[facility] encounter [facility]* Telephone Encounter - Ena Enriquez - 02/06/2024 7:52 AM EST Name of caller: Megan Contact phone number: [phone] Relationship to Patient: care team amanda Provider: Jose Antonio Practice: Endovascular Chief Complaint/Reason for Call: please send all lab work from September to fax [phone] [facility] Best time of day caller can be reached: any Patient advised that office/PCP has 24-48 business hours to return their call: No [id number] [facility]10-07-2024 History of Present illness Narrative* Oziel Culp MD - 01/06/2024 11:00 AM EDT History of Present Illness: 58 yo man here for fu stroke and bilateral ICA stenosis. He originally presented 09/2023 for left hemiparesis and was transferred to [facility] from [facility]. He was found to have right hemispheric watershed strokes and also bilateral carotid artery disease (<50%). He was already on Eliquis for atrial fibrillation and ASA was initiated. He mostly returned to normal and was discharged to home. Of note he has a history of cancer and is s/p chemotherapy and neck radiation. He was doing well until 10/2023 when he had another episode of left hemiparesis. He went to [facility] and was found to have increased stroke burden of the right hemisphere. Vascular surgery wasconsulted and no surgical procedure was recommended. He had a 3rd event of left hemiparesis the following week and a CT was done at [place] ED. At that time clopidogrel was added (in addition to ASA and Eliquis). The patient returned to normal and was discharged from the ED to home. 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 He is anonsmoker. He does report some new SOB over the last week or so, and has plans to see his PCP. PMHx: As above. History reviewed. No pertinent past medical history. Current Outpatient Medications: amLODIPine (Norvasc) 5 MG tablet, Take 5 mg by mouth daily., Disp: , Rfl: apixaban (Eliquis) 5 MG tablet, Take 1 tablet (5 mg) by mouth 2 times daily., Disp: 60 tablet, Rfl:0 aspirin 325 MG tablet, Take 325 mg by mouth in the morning., Disp: , Rfl: clopidogrel (Plavix) 75 MG tablet, Take 75 mg by mouth daily., Disp: , Rfl: Continuous Glucose Sensor (Dexcom G6 Sensor) misc, Dexcom G6 Sensor Mis, USE DIRECTED FOR CONTINUOUS BLOOD GLUCOSE MONITORING, CHANGE SENSOR EVERY 10 DAYS, Disp: , Rfl: dapagliflozin (Farxiga) 5 MG tablet, Take 1 tablet (5 mg) by mouth daily. Do not start before October 06, 2023., Disp: 30 tablet, Rfl: 0 DULoxetine (Cymbalta) [address] capsule, Take 1 capsule (60 mg) by mouth daily. Do not crush or chew. Do not start before October 06, 2023., Disp: 30 capsule, Rfl: 0 fenofibrate (Tricor) 54 MG tablet, , Disp: , Rfl: furosemide (Lasix) 40 MG tablet, Take 1 tablet (40 mg) by mouth in the morning and 1 tablet (40 mg)in the evening., Disp: 60 tablet, Rfl: 0 glipiZIDE (Glucotrol) 5 MG tablet, Take 1 tablet (5 mg) by mouth every morning (before breakfast). Do not start before October 06, 2023., Disp: 30 tablet, Rfl: 0 HYDROcodone-acetaminophen (Bill[place]) 5-325 MG tablet, Take 1 tablet by mouth 2-3 times daily as neededfor pain, Disp: , Rfl: Jardiance 25 MG, 25 mg., Disp: , Rfl: levothyroxine (Synthroid, Levoxyl) 112 MCG tablet, Take 1 tablet (112 mcg) by mouth every morning (before breakfast). Do not start before October 06, 2023., Disp: 30 tablet, Rfl: 0 metoprolol succinate XL (Toprol-XL) 100 MG 24 hr tablet, Take 1 tablet (100 mg) by mouth daily. Do not crush or chew. Do not start before October 06, 2023., Disp: 30 tablet, Rfl: 0 pantoprazole (ProtoNix) 40 MG EC tablet, Take 1 tablet (40 mg) by mouth every morning (before breakfast). Do not crush, chew, or split. Do not start before October 06, 2023., Disp: 30 tablet, Rfl: 0 tamsulosin (Flomax) 0.4 MG 24 hr capsule, Take 0.4 mg by mouth daily., Disp: , Rfl: aspirin 81 MG chewable tablet, 81 mg., Disp: , Rfl: atorvastatin (Lipitor) 80 MG tablet, Take 1 tablet (80 mg) by mouth Nightly., Disp: 30 tablet, Rfl:0 betamethasone, augmented, (Diprolene) 0.05 % lotion, APPLY TO RASH ON THE TRUNK OR SCALP 1-2 TIMES DAILY NEEDED, Disp: , Rfl: busPIRone (Buspar) 10 MG tablet, Take 1 tablet (10 mg) by mouth 3 times daily., Disp: 90 tablet, Rfl: 0 dilTIAZem CD (Cardizem CD) 120 MG 24 hr capsule, Take 120 mg by mouth daily., Disp: , Rfl: doxycycline (Vibramycin) 100 MG capsule, Take 100 mg by mouth 2 times daily., Disp: , Rfl: ergocalciferol (Vitamin D2) 1.25 MG (94199 UT) capsule, Take 1 capsule by mouth 1 (one) time per week., Disp: , Rfl: glimepiride (Amaryl) 4 MG tablet, Take 4 mg by mouth daily., Disp: , Rfl: insulin regular (HumuLIN R,NovoLIN R) 100 UNIT/ML injection, Inject 0.2 mL (20 Units) under the skin in the morning and 0.2 mL (20 Units) at noon and 0.2 mL (20 Units) in the evening. Inject with meals., Disp: 18 mL, Rfl: 0 metFORMIN (Glucophage) 500 MG tablet, Take 500 mg by mouth in the morning and 500 mg in the evening. Take with meals., Disp: , Rfl: potassium citrate CR (Urocit-K-10) 10 mEq ER tablet, Take 10 mEq by mouth 2 times daily., Disp: , Rfl: spironolactone (Aldactone) 50 MG tablet, Take 50 mg by mouth daily., Disp: , Rfl: traMADol (Ultram) 50 MG tablet, Take 50 mg by mouth., Disp: , Rfl: . Social History Tobacco Use Smoking status: Never Smokeless tobacco: Never Substance Use Topics Alcohol use: Not Currently No family history on file. Review of Systems Constitutional: Negative. HENT: Negative. Eyes: Negative. Respiratory: Negative. Cardiovascular: Negative. Gastrointestinal: Negative. Endocrine: Negative. Genitourinary: Negative. Musculoskeletal: Negative. Skin: Negative. Allergic/Immunologic: Negative. Hematological: Negative. Psychiatric/Behavioral: Negative. All other systems reviewed and are negative. Examination: BP Readings from Last 3 Encounters: 01/06/24 110/72 10/05/23 107/70 Wt Readings from Last 3 Encounters: No data found for Wt BP 110/72 (BP Location: Left arm) Pulse 72 Ht 1.753 m (5' 9) Wt (!) 142 kg (312 lb) BMI 46.07 kg/m Neurological Examination: Higher Functions: Mental Status Exam: Level of Alertness:Awake Orientation: person,place,time, Memory:normal Fund of Knowledge: normal Attention/Concentration: normal Language: normal Dysarthria Not present Cranial Nerves: -II Visual acuity: normal -II Visual goldberg: normal -III Pupils (~ 3 mm OD, 3 mm OS) equal, round, reactive to light -III-IV- Extraocular Movements: intact -Nystagmus Not present -Saccades and pursuits normal -V Facial sensation: intact -VII Facial strength: intact -VIII Hearing: intact -X Palate: intact -XI Shoulder shrug: intact -XII Tongue movement: normal Funduscopic Exam: normal Motor Examination: Tone Normal -Bulk: normal -Muscle Stretch : Drift:absent normal -Reflexes ; normal -Plantar responce: Flexor bilaterally Sensory Intact to light touch, pain / temperature, proprioception, Coordination: Arms Normal finger to nose, Tremors not present, Gait Normal Imaging reviewed with patient: CTA, MRI from September admission. Impression/Plan: 58 yo man with recurrent right hemispheric strokes. - Bilateral ICA stenosis, < 50%. Left vertebral and basilar artery stenosis. - Currently on Eliquis (atrial fibrillation), ASA and clopidogrel I have requested images from [facility] to evaluate distribution of new ischemic events and consider further endovascular therapies, however, if related to basilar or intracranial stenosis would be very high risk for angioplasty or stenting. The carotid narrowing does not appear to warrant treatment at this time, however, recurrent events are concerning. Fortunately he has had no issues on current regimen. For now will continue dual antiplatelet and Eliquis, but hopefully be able to wean clopidogrel after review of imaging. Stroke risk factors and reduction recommendations were discussed in detail, as is his risk of recurrent stroke. Stroke warning signs and reasons to return to hospital were discussed in detail. - Recommend PCP evaluation for SOB - CTA head and neck to re-evaluate degree of extracranial and intracranial stenosis. Will discuss treatment plan and medication changes after review of all above imaging. MD Jose Antonio I spent 40 minutes with the patient discussing clinical history, imaging, and treatment options (medical, endovascular and surgical). They expressed understanding and agreement with the plan. Patient Education: >= 3 elements of education during at least one visit within a 12 month period- lifestyle, physical activity, diet and medications. Life Style Modification: Yes Smoking cessation counseling: Yes documented in this [facility]08-15-2024 [facility]07-06-2024 Plan of care note* Care Plan - Dariana Lawrence RN - 10/05/2023 2:39 PM EDT The patient is Moderately Stable - Low risk of patient condition declining or worsening The patient's goals for the shift include The clinical goals for the shift include Over the shift, the patient did not make progress toward the following goals. Barriers to progression include . Recommendations to address these barriers include . Patient discharged. [id number] Miscellaneous Notes* Care Plan - Dariana Lawrence RN - 10/05/2023 2:39 PM EDT The patient is Moderately Stable - Low risk of patient condition declining or worsening The patient's goals for the shift include The clinical goals for the shift include Over the shift, the patient did not make progress toward the following goals. Barriers to progression include . Recommendations to address these barriers include . Patient discharged. * Care Plan - Dalila Helms RN - 10/05/2023 3:55 AM EDT The patient is Moderately Stable - Low risk of patient condition declining or worsening The patient's goals for the shift include improved mental status The clinical goals for the shift include easily orient Over the shift, the patient did not make progress toward the following goals. Barriers to progression include mild confusion. Recommendations to address these barriers include reorient frequently. * Care Coordination - Gris Keith RN - 10/04/2023 11:19 AM EDT Care Managment Initial Assessment Date: 10/04/2023 Patient Name: Krunal Leos : 1965 Patient Information Source of Information: Patient Cognition/Language: WFL - Within Functional Limits Permission given to speak with patient medical center representative/caregiver as indicated: Confirmation of Payer with patient/family: Yes Payer Name: Medical [place]: No Confirmation of Primary Care Physician: Confirmed PCP Name: Dr Khan Seen in last 2 years?: Yes Primary Caregiver: Self If assistance needed, confirmed caregiver ready, willing and able to care for patient at discharge: Confirmed with: Living Arrangements Current Residence: House Number of Floors 2 Number of Entry Steps: Bed/Bath Levels: Both second floor Facility: Facility Name: Plan to Return: Lives with: Spouse/significant other, Children Support Systems: Spouse/significant other, Children, Family members, Friends/neighbors Activities of Daily Living Ambulation: Independent Bathing/Dressing: Independent Elimination/Continence/Toileting: Independent Feeding: Independent Who Assists with Activities of Daily Living: Instrumental Activities of Daily Living Prescription Coverage: Yes Pharmacy Used: [facility] Medication Management: Independent Transportation/Shopping: Independent Transportation Mode: Car Needs Assistance with Transportation at Discharge: No Meal Preparation: Independent Laundry/Cleaning: Independent Finances/Bill Paying: Independent Communication: Independent Types of Care Services/Equipment Utilized Care Services: (n/a) Dialysis Type: NA Durable Medical Equipment: CPap Patient's Goal/Discharge Plan Patient expects to be discharged to: home Discharge Planning Actions: Continue to follow Patient's Choice Rights and [employer] and Collaborative Relationships Disclosed as Indicated for Post-Acute Care: Interdisciplinary Team Engagement: Social Work Referral for: Additional Information: Went into room introduced self and role to pt. He appears to be A 0 x 3. He was transferred from [facility] with CVA/TIA. Vascular and Neurology have been consulted. Needs carotid US. Anticipate home with no needs when stable.. . Gris Keith RN documented in this [facility] [id number] Nurse Note* Dariana Lawrence RN - 10/05/2023 2:38 PM EDT Patient discharged at this time. Patient alert and oriented, reviewed discharge instructions with patient and daughter. PIV removed, tele removed. [id number] Nurse Note* Dariana Lawrence RN - 10/05/2023 2:38 PM EDT Patient discharged at this time. Patient alert and oriented, reviewed discharge instructions with patient and daughter. PIV removed, tele removed. * Dalila Helms RN - 10/03/2023 7:30 PM EDT Pt arrived from [facility], ambulated to bed, NIH scale 1, pt A&O x 4, denies numbness ortingling, denies headache or dizziness, denies needs at this time, call light and belongings withinreach, will monitor. documented in this [facility]07-06-2024 NoteDischarge Summary Krunal Leos : 1965 ADMIT DATE: 10/03/2023 DISCHARGE DATE: 10/05/2023 PRIMARY CARE PHYSICIAN: RADHA KHAN VISIT STATUS: Admission CODE STATUS: Full Code DISCHARGE DIAGNOSES: Principal Problem: Cerebrovascular accident (CVA), unspecified mechanism (HCC) HOSPITAL COURSE: Krunal Leos is a 58 y.o. male presenting with dizziness over the past 3 years however became more severe and more frequent a few days ago was admitted to [facility] after he had left facial weakness left hand weakness and was diagnosed with a CVA. 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 Occlusion of the left vertebral artery at the level of the V3 extending beyond the [id number] with reconstitution. Atherosclerosis of the cavernous and supraclinoid segments of the bilateral carotid arteries without significant stenosis. MRI of the brain without contrast done on 10/02/2023 revealed numerous subcentimeter acute infarcts in the right cerebral hemisphere mainly in the cortex suggestive of an embolic source. The right facial droop and left upper extremity weakness did improve currently is being admitted for CVA/TIA as well as history of ocular stroke.. Neurology consulted Endovascular consulted PT recommends home Vascular consulted, seen the patient, recommends ultrasound carotids Ultrasound bilateral carotids <50% stenosis in the right internal carotid artery. Calcific plaque (proximal) in the right internal carotid artery. Right External Carotid Artery: >50% stenosis. Moderate and heterogeneous plaque (proximal). Normal antegrade flow involving the right vertebral artery. <50% stenosis in the left internal carotid artery. Mild, heterogeneous and calcific plaque (proximal) in the left internal carotid artery. Left Subclavian Artery: >50% stenosis. Moderate and heterogeneous plaque. Subclavian has turbulent flow. Normal antegrade flow involving the left vertebral artery. Interval History: 10/05/2023-No overnight issues. Patient is seen and examined, comfortably resting on his bedside chair, NAD He offers no new acute complaints Endovascular cleared for discharge Neurology was awaiting for endovascular recommendations Case and plan discussed with patient and bedside nurse. All questions answered. Past Medical History: Medical History No past medical history on file. Adult diet Regular; 3 carb choices (45 gm/meal) 24HR INTAKE/OUTPUT: Intake/Output Summary (Last 24 hours) at 10/05/2023 1018 Last data filed at 10/05/2023 0825 Gross per 24 hour Intake 500 ml Output -- Net 500 ml LABS: CBC: Recent Labs 10/04/23 0752 10/05/23 0632 WBC 8.3 9.9 RBC 4.76 4.85 HGB 11.3* 11.3* HCT 39.6* 36.7* MCV 83.2 75.7* RDW 17.9* 17.7* PLT 201 221 BMP: Recent Labs 10/04/23 0736 10/05/23 0632 NA 134* 134* K 4.4 4.3 CL 105 102 CO2 19* 20* BUN 17 20 CREATININE 0.77 0.89 GLUCOSE 177* 217* CALCIUM 9.3 9.0 ANIONGAP 11 12 LIVER PROFILE: Recent Labs 10/05/23 0632 AST 29 ALT 21 BILITOT 1.2 ALKPHOS 101 PROT 8.0 PT/INR: Recent Labs 10/04/23 1341 PROTIME 10.9 INR 1.0 CARDIAC ENZYMES: Recent Labs 10/04/23 0752 10/04/23 1341 TROPONINI <0.012 <0.012 Procalcitonin: No results found for: PROCAL COVID-19 PCR: No results for input(s): COVID19 in the last 72 hours. Objective: Vitals: BP 124/77 (BP Location: Left arm, Patient Position: Sitting) Pulse 90 Temp 36.6 ?C (97.8 ?F) (Temporal) Resp 20 SpO2 93% Pulse Ox: SpO2 Av.6 % Min: 93 % Max: 96 % Supplemental O2: Physical Exam HENT: Head: Normocephalic and atraumatic. Mouth/Throat: Mouth: Mucous membranes are moist. Cardiovascular: Rate and Rhythm: Normal rate and regular rhythm. Pulmonary: Effort: Pulmonary effort is normal. Abdominal: Palpations: Abdomen is soft. Skin: General: Skin is warm and dry. Neurological: Mental Status: He is alert and oriented to person, place, and time. Psychiatric: Mood and Affect: Mood normal. NIH Stroke Scale: 0 Medications: Scheduled PRN Scheduled Meds amLODIPine, 5 mg, Oral, Daily apixaban, 5 mg, Oral, BID aspirin, 81 mg, Oral, Daily atorvastatin, 80 mg, Oral, Nightly busPIRone, 10 mg, Oral, TID dapagliflozin, 5 mg, Oral, Daily DULoxetine, 60 mg, Oral, Daily furosemide, 40 mg, Oral, BID glipiZIDE, 5 mg, Oral, qAM AC insulin regular, 20 Units, SubCUTAneous, TID WC levothyroxine, 112 mcg, Oral, qAM AC metoprolol succinate XL, 100 mg, Oral, Daily pantoprazole, 40 mg, Oral, qAM AC sodium chloride 0.9%, 5-40 mL, IntraVENous, q12h tamsulosin, 0.4 mg, Oral, Daily PRN Meds PRN medications: dextrose, dextrose, glucagon (rDNA), glucose, labetalol, sodium chloride, sodium chlor (more content not included)...[facility] 10-05-2023 Hospital course Narrative* Harmeet Stallworth MD - 10/05/2023 1:36 PM EDT Discharge Summary Krunal Leos : 1965 ADMIT DATE: 10/03/2023 DISCHARGE DATE: 10/05/2023 PRIMARY CARE PHYSICIAN: RADHA KHAN VISIT STATUS: Admission CODE STATUS: Full Code DISCHARGE DIAGNOSES: Principal Problem: Cerebrovascular accident (CVA), unspecified mechanism (HCC) HOSPITAL COURSE: Krunal Leos is a 58 y.o. male presenting with dizziness over the past 3 years however became more severe and more frequent a few days ago was admitted to [facility] after he had left facial weakness left hand weakness and was diagnosed with a CVA. 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 Occlusion of the left vertebral artery at the level of the V3 extending beyond the [id number] with reconstitution. Atherosclerosis of the cavernous and supraclinoid segments of the bilateral carotid arteries without significant stenosis. MRI of the brain without contrast done on 10/02/2023 revealed numerous subcentimeter acute infarcts in the right cerebral hemisphere mainly in the cortex suggestive of an embolic source. The right facial droop and left upper extremity weakness did improve currently is being admitted for CVA/TIA as well as history of ocular stroke.. Neurology consulted Endovascular consulted PT recommends home Vascular consulted, seen the patient, recommends ultrasound carotids Ultrasound bilateral carotids <50% stenosis in the right internal carotid artery. Calcific plaque (proximal) in the right internal carotid artery. Right External Carotid Artery: >50% stenosis. Moderate and heterogeneous plaque (proximal). Normal antegrade flow involving the right vertebral artery. <50% stenosis in the left internal carotid artery. Mild, heterogeneous and calcific plaque (proximal) in the left internal carotid artery. Left Subclavian Artery: >50% stenosis. Moderate and heterogeneous plaque. Subclavian has turbulent flow. Normal antegrade flow involving the left vertebral artery. Interval History: 10/05/2023-No overnight issues. Patient is seen and examined, comfortably resting on his bedside chair, NAD He offers no new acute complaints Endovascular cleared for discharge Neurology was awaiting for endovascular recommendations Case and plan discussed with patient and bedside nurse. All questions answered. Past Medical History: Medical History No past medical history on file. Adult diet Regular; 3 carb choices (45 gm/meal) 24HR INTAKE/OUTPUT: Intake/Output Summary (Last 24 hours) at 10/05/2023 1018 Last data filed at 10/05/2023 0825 Gross per 24 hour Intake 500 ml Output -- Net 500 ml LABS: CBC: Recent Labs 10/04/23 0752 10/05/23 0632 WBC 8.3 9.9 RBC 4.76 4.85 HGB 11.3* 11.3* HCT 39.6* 36.7* MCV 83.2 75.7* RDW 17.9* 17.7* PLT 201 221 BMP: Recent Labs 10/04/23 0736 10/05/23 0632 NA 134* 134* K 4.4 4.3 CL 105 102 CO2 19* 20* BUN 17 20 CREATININE 0.77 0.89 GLUCOSE 177* 217* CALCIUM 9.3 9.0 ANIONGAP 11 12 LIVER PROFILE: Recent Labs 10/05/23 0632 AST 29 ALT 21 BILITOT 1.2 ALKPHOS 101 PROT 8.0 PT/INR: Recent Labs 10/04/23 1341 PROTIME 10.9 INR 1.0 CARDIAC ENZYMES: Recent Labs 10/04/23 0752 10/04/23 1341 TROPONINI <0.012 <0.012 Procalcitonin: No results found for: PROCAL COVID-19 PCR: No results for input(s): COVID19 in the last 72 hours. Objective: Vitals: BP 124/77 (BP Location: Left arm, Patient Position: Sitting) Pulse 90 Temp 36.6 C (97.8F) (Temporal) Resp 20 SpO2 93% Pulse Ox: SpO2 Av.6 % Min: 93 % Max: 96 % Supplemental O2: Physical Exam HENT: Head: Normocephalic and atraumatic. Mouth/Throat: Mouth: Mucous membranes are moist. Cardiovascular: Rate and Rhythm: Normal rate and regular rhythm. Pulmonary: Effort: Pulmonary effort is normal. Abdominal: Palpations: Abdomen is soft. Skin: General: Skin is warm and dry. Neurological: Mental Status: He is alert and oriented to person, place, and time. Psychiatric: Mood and Affect: Mood normal. NIH Stroke Scale: 0 Medications: Scheduled PRN Scheduled Meds amLODIPine, 5 mg, Oral, Daily apixaban, 5 mg, Oral, BID aspirin, 81 mg, Oral, Daily atorvastatin, 80 mg, Oral, Nightly busPIRone, 10 mg, Oral, TID dapagliflozin, 5 mg, Oral, Daily DULoxetine, 60 mg, Oral, Daily furosemide, 40 mg, Oral, BID glipiZIDE, 5 mg, Oral, qAM AC insulin regular, 20 Units, SubCUTAneous, TID WC levothyroxine, 112 mcg, Oral, qAM AC metoprolol succinate XL, 100 mg, Oral, Daily pantoprazole, 40 mg, Oral, qAM AC sodium chloride 0.9%, 5-40 mL, IntraVENous, q12h tamsulosin, 0.4 mg, Oral, Daily PRN Meds PRN medications: dextrose, dextrose, glucagon (rDNA), glucose, labetalol, sodium chloride, sodium chloride 0.9% Continuous Continuous Meds Assessment Data: (CAT1) Reviewed 3 or more notes from different specialty or health system (each=1). (CAT1) Reviewed 3 or more labs/studies previously ordered by me not previously counted (each=1, panels count as 1). (CAT1) Ordered 3 or more new labs and/or studies (each=1, panels count as 1). 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 Bilateral carotid artery stenosis right greater than left Intermittent atrial fibrillation currently in sinus rhythm. Stable chronic problems affecting care, new non-acute diagnoses: 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 Morbid obesity Hyperlipidemia Plan As a result of the above findings & factors, the following mgmt was pursued: -Vascular consultation, recommends ultrasound carotids, result noted as above -Neurology consultation, seen the patient, appreciated -Endovascular consulted, seen the patient, cleared for discharge, appreciated -Home medications as ordered -Continue to monitor glycemic status. SIGNIFICANT DIAGNOSTIC STUDIES: CONSULTANTS: Neurology, endovascular RECOMMENDED NEXT STEPS: Follow-up with PCP, neurology, endovascular DISCHARGE MEDICATIONS: Medication List You have not been prescribed any medications. DIET: Adult diet Regular; 3 carb choices (45 gm/meal) ACTIVITY: No restriction. COMPLEXITY OF FOLLOW UP: [] Moderate Complexity: follow up within 7-14 calendar days (49644) [] Severe Complexity: follow up within 7 calendar days (51343) FOLLOW UP TESTING, PENDING RESULTS OR REFERRALS AT TRANSITIONAL CARE VISIT: [] Yes [] No PENDING STUDIES: DISPOSITION: Home FACILITY/HOME CARE AGENCY NAME: Follow up with Suzy Jauregui MD [address] [facility] [address] [facility] [address] Call Call your surgeon in 2 days & schedule follow-up, as needed or follow-up for ultrasound survaliance Oziel Culp MD [address] [facility] [address] Schedule an appointment as soon as possible for a visit in 1 week(s) Pamela Morris MD [address] [facility] [address] [facility] [address] Schedule an appointment as soon as possible for a visit in 1 week(s) Radha Khan [address] [facility] [address] [facility] [address] Schedule an appointment as soon as possible for a visit in 1 week(s) INSTRUCTIONS TO MA/SW: Please call patient on day after discharge (must document patient contacted within 2 business days of discharge). FOLLOW UP QUESTIONS FOR MA/SW: 1. Did you get medications filled and taking them as instructed from discharge? 2. Are you following your discharge instructions from your hospital stay? 3. Please confirm patient is scheduled for a follow up appointment within the above time frame. DISCHARGE TIME: More than 30 minutes SIGNED: Harmeet Stallworth MD 10/05/2023, 1:36 PM documented in this [facility]07-06-2024 NoteHospitalist Progress Note 10/05/2023 Subjective: Admit Date: 10/03/2023 PCP: RADHA KHAN Room#: [id number] A Brief Hospital course: Krunal Leos is a 58 y.o. male presenting with dizziness over the past 3 years however became more severe and more frequent a few days ago was admitted to [facility] after he had left facial weakness left hand weakness and was diagnosed with a CVA. 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 Occlusion of the left vertebral artery at the level of the V3 extending beyond the [id number] with reconstitution. Atherosclerosis of the cavernous and supraclinoid segments of the bilateral carotid arteries without significant stenosis. MRI of the brain without contrast done on 10/02/2023 revealed numerous subcentimeter acute infarcts in the right cerebral hemisphere mainly in the cortex suggestive of an embolic source. The right facial droop and left upper extremity weakness did improve currently is being admitted for CVA/TIA as well as history of ocular stroke.. Neurology consulted Endovascular consulted PT recommends home Vascular consulted, seen the patient, recommends ultrasound carotids Ultrasound bilateral carotids <50% stenosis in the right internal carotid artery. Calcific plaque (proximal) in the right internal carotid artery. Right External Carotid Artery: >50% stenosis. Moderate and heterogeneous plaque (proximal). Normal antegrade flow involving the right vertebral artery. <50% stenosis in the left internal carotid artery. Mild, heterogeneous and calcific plaque (proximal) in the left internal carotid artery. Left Subclavian Artery: >50% stenosis. Moderate and heterogeneous plaque. Subclavian has turbulent flow. Normal antegrade flow involving the left vertebral artery. Interval History: 10/05/2023-No overnight issues. Patient is seen and examined, comfortably resting on his bedside chair, NAD He offers no new acute complaints Endovascular cleared for discharge Neurology was awaiting for endovascular recommendations Case and plan discussed with patient and bedside nurse. All questions answered. Past Medical History: No past medical history on file. Adult diet Regular; 3 carb choices (45 gm/meal) 24HR INTAKE/OUTPUT: Intake/Output Summary (Last 24 hours) at 10/05/2023 1018 Last data filed at 10/05/2023 0825 Gross per 24 hour Intake 500 ml Output -- Net 500 ml LABS: CBC: Recent Labs 10/04/23 0752 10/05/23 0632 WBC 8.3 9.9 RBC 4.76 4.85 HGB 11.3* 11.3* HCT 39.6* 36.7* MCV 83.2 75.7* RDW 17.9* 17.7* PLT 201 221 BMP: Recent Labs 10/04/23 0736 10/05/23 0632 NA 134* 134* K 4.4 4.3 CL 105 102 CO2 19* 20* BUN 17 20 CREATININE 0.77 0.89 GLUCOSE 177* 217* CALCIUM 9.3 9.0 ANIONGAP 11 12 LIVER PROFILE: Recent Labs 10/05/23 0632 AST 29 ALT 21 BILITOT 1.2 ALKPHOS 101 PROT 8.0 PT/INR: Recent Labs 10/04/23 1341 PROTIME 10.9 INR 1.0 CARDIAC ENZYMES: Recent Labs 10/04/23 0752 10/04/23 1341 TROPONINI <0.012 <0.012 Procalcitonin: No results found for: PROCAL COVID-19 PCR: No results for input(s): COVID19 in the last 72 hours. Objective: Vitals: BP 124/77 (BP Location: Left arm, Patient Position: Sitting) Pulse 90 Temp 36.6 ?C (97.8 ?F) (Temporal) Resp 20 SpO2 93% Pulse Ox: SpO2 Av.6 % Min: 93 % Max: 96 % Supplemental O2: Physical Exam HENT: Head: Normocephalic and atraumatic. Mouth/Throat: Mouth: Mucous membranes are moist. Cardiovascular: Rate and Rhythm: Normal rate and regular rhythm. Pulmonary: Effort: Pulmonary effort is normal. Abdominal: Palpations: Abdomen is soft. Skin: General: Skin is warm and dry. Neurological: Mental Status: He is alert and oriented to person, place, and time. Psychiatric: Mood and Affect: Mood normal. NIH Stroke Scale: 0 Medications: Scheduled PRN amLODIPine, 5 mg, Oral, Daily apixaban, 5 mg, Oral, BID aspirin, 81 mg, Oral, Daily atorvastatin, 80 mg, Oral, Nightly busPIRone, 10 mg, Oral, TID dapagliflozin, 5 mg, Oral, Daily DULoxetine, 60 mg, Oral, Daily furosemide, 40 mg, Oral, BID glipiZIDE, 5 mg, Oral, qAM AC insulin regular, 20 Units, SubCUTAneous, TID WC levothyroxine, 112 mcg, Oral, qAM AC metoprolol succinate XL, 100 mg, Oral, Daily pantoprazole, 40 mg, Oral, qAM AC sodium chloride 0.9%, 5-40 mL, IntraVENous, q12h tamsulosin, 0.4 mg, Oral, Daily PRN medications: dextrose, dextrose, glucagon (rDNA), glucose, labetalol, sodium chloride, sodium chloride 0.9% Continuous Assessment Data: (CAT1) Reviewed 3 or more notes from different specialty or health system (each=1). (CAT1) Reviewed 3 or more labs/studies previously ordered by me not previously counted (eac (more content not included)...[facility]07-06-2024 History of Present illness Narrative* Harmeet Stallworth MD - 10/05/2023 10:16 AM EDT Hospitalist Progress Note 10/05/2023 Subjective: Admit Date: 10/03/2023 PCP: RADHA KHAN Room#: [id number] A Brief Hospital course: Krunal Leos is a 58 y.o. male presenting with dizziness over the past 3 years however became more severe and more frequent a few days ago was admitted to [facility] after he had left facial weakness left hand weakness and was diagnosed with a CVA. 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 Occlusion of the left vertebral artery at the level of the V3 extending beyond the [id number] with reconstitution. Atherosclerosis of the cavernous and supraclinoid segments of the bilateral carotid arteries without significant stenosis. MRI of the brain without contrast done on 10/02/2023 revealed numerous subcentimeter acute infarcts in the right cerebral hemisphere mainly in the cortex suggestive of an embolic source. The right facial droop and left upper extremity weakness did improve currently is being admitted for CVA/TIA as well as history of ocular stroke.. Neurology consulted Endovascular consulted PT recommends home Vascular consulted, seen the patient, recommends ultrasound carotids Ultrasound bilateral carotids <50% stenosis in the right internal carotid artery. Calcific plaque (proximal) in the right internal carotid artery. Right External Carotid Artery: >50% stenosis. Moderate and heterogeneous plaque (proximal). Normal antegrade flow involving the right vertebral artery. <50% stenosis in the left internal carotid artery. Mild, heterogeneous and calcific plaque (proximal) in the left internal carotid artery. Left Subclavian Artery: >50% stenosis. Moderate and heterogeneous plaque. Subclavian has turbulent flow. Normal antegrade flow involving the left vertebral artery. Interval History: 10/05/2023-No overnight issues. Patient is seen and examined, comfortably resting on his bedside chair, NAD He offers no new acute complaints Endovascular cleared for discharge Neurology was awaiting for endovascular recommendations Case and plan discussed with patient and bedside nurse. All questions answered. Past Medical History: No past medical history on file. Adult diet Regular; 3 carb choices (45 gm/meal) 24HR INTAKE/OUTPUT: Intake/Output Summary (Last 24 hours) at 10/05/2023 1018 Last data filed at 10/05/2023 0825 Gross per 24 hour Intake 500 ml Output -- Net 500 ml LABS: CBC: Recent Labs 10/04/23 0752 10/05/23 0632 WBC 8.3 9.9 RBC 4.76 4.85 HGB 11.3* 11.3* HCT 39.6* 36.7* MCV 83.2 75.7* RDW 17.9* 17.7* PLT 201 221 BMP: Recent Labs 10/04/23 0736 10/05/23 0632 NA 134* 134* K 4.4 4.3 CL 105 102 CO2 19* 20* BUN 17 20 CREATININE 0.77 0.89 GLUCOSE 177* 217* CALCIUM 9.3 9.0 ANIONGAP 11 12 LIVER PROFILE: Recent Labs 10/05/23 0632 AST 29 ALT 21 BILITOT 1.2 ALKPHOS 101 PROT 8.0 PT/INR: Recent Labs 10/04/23 1341 PROTIME 10.9 INR 1.0 CARDIAC ENZYMES: Recent Labs 10/04/23 0752 10/04/23 1341 TROPONINI <0.012 <0.012 Procalcitonin: No results found for: PROCAL COVID-19 PCR: No results for input(s): COVID19 in the last 72 hours. Objective: Vitals: BP 124/77 (BP Location: Left arm, Patient Position: Sitting) Pulse 90 Temp 36.6 C (97.8F) (Temporal) Resp 20 SpO2 93% Pulse Ox: SpO2 Av.6 % Min: 93 % Max: 96 % Supplemental O2: Physical Exam HENT: Head: Normocephalic and atraumatic. Mouth/Throat: Mouth: Mucous membranes are moist. Cardiovascular: Rate and Rhythm: Normal rate and regular rhythm. Pulmonary: Effort: Pulmonary effort is normal. Abdominal: Palpations: Abdomen is soft. Skin: General: Skin is warm and dry. Neurological: Mental Status: He is alert and oriented to person, place, and time. Psychiatric: Mood and Affect: Mood normal. NIH Stroke Scale: 0 Medications: Scheduled PRN amLODIPine, 5 mg, Oral, Daily apixaban, 5 mg, Oral, BID aspirin, 81 mg, Oral, Daily atorvastatin, 80 mg, Oral, Nightly busPIRone, 10 mg, Oral, TID dapagliflozin, 5 mg, Oral, Daily DULoxetine, 60 mg, Oral, Daily furosemide, 40 mg, Oral, BID glipiZIDE, 5 mg, Oral, qAM AC insulin regular, 20 Units, SubCUTAneous, TID WC levothyroxine, 112 mcg, Oral, qAM AC metoprolol succinate XL, 100 mg, Oral, Daily pantoprazole, 40 mg, Oral, qAM AC sodium chloride 0.9%, 5-40 mL, IntraVENous, q12h tamsulosin, 0.4 mg, Oral, Daily PRN medications: dextrose, dextrose, glucagon (rDNA), glucose, labetalol, sodium chloride, sodium chloride 0.9% Continuous Assessment Data: (CAT1) Reviewed 3 or more notes from different specialty or health system (each=1). (CAT1) Reviewed 3 or more labs/studies previously ordered by me not previously counted (each=1, panels count as 1). (CAT1) Ordered 3 or more new labs and/or studies (each=1, panels count as 1). 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 Bilateral carotid artery stenosis right greater than left Intermittent atrial fibrillation currently in sinus rhythm. Stable chronic problems affecting care, new non-acute diagnoses: 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 Morbid obesity Hyperlipidemia Plan As a result of the above findings & factors, the following mgmt was pursued: -Vascular consultation, recommends ultrasound carotids, result noted as above -Neurology consultation, seen the patient, appreciated -Endovascular consulted, seen the patient, cleared for discharge, appreciated -Home medications as ordered -Continue to monitor glycemic status. - am labs, replace lytes prn - PT/OT/CM/SW - delirium precautions: increase activity, limit nighttime disturbances, and avoid anticholinergic meds, benzos, etc - DVT prophylaxis: encourage ambulation and already anticoagulated Complexity: Acute illness or injury posing a threat to life or body function (HIGH). 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 No Harmeet Stallworth MD Division of Hospitalist Medicine Inpatient Medical Services/[facility] * Brenna Carrion - 10/05/2023 8:22 AM EDT Nutrition rescreen completed. Chart reviewed. Patient to be monitored and followed by the diet power plant technician. Dietitian available upon request. * Fran Lewis PT - 10/04/2023 9:32 AM EDT Images from the original note were not included. PHYSICAL THERAPY [facility] Initial Evaluation Name/MRN: Krunal Leos ([id number]) Evaluation Date: 10/04/2023 Date of : 1965 Admission Date: 10/03/2023 7:30 PM Age: 58 y.o. Room/Bed: [facility] Discharge Recommendation: Home independently Equipment Needed: No Assessment IMPRESSION: Pt notes upon admission his greatest issue was coordination of L hand. He also notes states he was as clear as he normally would be. Today, no issues with mobility and remain in normal sinus rhythm with gait. H/o neuropathy and edema in LEs. Bed mobility, transfers indep, amb pushing IV pole modif indep. Will sign off. Diagnosis: CVA, occlusion L vertebral artery Prognosis: good Performance Deficits /Impairments: N/A Decision Making: Low Complexity Subjective Pt in bed. Notes he had been up to bathroom several times. States he feels back to baseline. Notes yesterday, his L hand coordination was markedly decreased. Denies acute pain. Does note baseline edema in LEs and LE neuropathy Past Medical History: No past medical history on file. Past Surgical History: No past surgical history on file. Admission Diagnosis: There are no problems to display for this patient. Medical Precautions: No active isolations Proper PPE donned/doffed in accordance with facility standards. Fall Risk: Gilbert Fall Risk Score: 35 (Medium Risk) Precautions/Restrictions: Lines/Drains/Airways: IV Family/Caregiver Present: none Overall Cognitive Status: WNL Overall Orientation Status: Oriented x4 Vision: glasses, but WFL Hearing: normal Social/Functional History Lives with , dtr, son-in-law. Two step entry to [employer] home. Pt drives, works at [employer]. Son-in-law mows lawn and often orders groceries on line. Notes is disabled--she can perform self-care, but not really household ADLs Prior Level of Function ADL Assistance: Independent Ambulation Assistance: Independent Transfer Assistance: Independent Objective Lower Extremity Assessment AROM: WNL UE ROM: WFL, including rapid opposition of thumb on L hand Strength: WNL (symmetrical) Some baseline numbness in feet, but still can detect touch Bed Mobility: Supine to sit: Independent Transfers Sit to stand: Independent Stand to sit: Independent Ambulation Ambulation 1 Assistive device(s) used: IV pole Assist level: Modified Independent Distance (ft): 300 Quality of gait: slight flexion (approx 5 deg) at hips, else WFL Indep retrieving object from floor. Outcome Measures AM-PAC How much HELP from another person do you currently need Turning from your back to your side while in a flat bed without using bedrails?: None Moving from lying on your back to sitting on the side of a flat bed without using bedrails?: None Moving to and from a bed to a chair (including a wheelchair)?: None Standing up from a chair using your arms (wheelchair or bedside chair)?: None Walking in a hospital room?: None Stair climbing assessed?: No AM-PAC Inpatient Mobility Raw Score (No Stairs) : 20 JH-HLM JH-HLM Score: Walked 250 ft or more (i.e. several laps on unit) Plan No skilled acute PT indicated at this time. Please reconsult should changes occur. Safety/Education Safety Safety Devices in place: call light within reach, left in chair, and nurse notified Restraints: No Education Remain active Goals Patient Stated Goal: go home. Therapy Time Individual Co-treatment Time In 0914 Time Out 0931 Minutes 17 Fran Lewis PT Patient's Physical Therapy Plan of Care supervision is transferred to a [facility] Therapy Services Physical Therapist. Goals and/or treatment plan was established in collaboration with patient/family/other representatives. * Harmeet Stallwroth MD - 10/04/2023 8:22 AM EDT Hospitalist Progress Note 10/04/2023 Subjective: Admit Date: 10/03/2023 PCP: RADHA KHAN Room#: W4-435/W4-435 A Brief Hospital course: Krunal Leos is a 58 y.o. male presenting with dizziness over the past 3 years however became more severe and more frequent a few days ago was admitted to [facility] after he had left facial weakness left hand weakness and was diagnosed with a CVA. 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 Occlusion of the left vertebral artery at the level of the V3 extending beyond the [id number]-mw-vdli with reconstitution. Atherosclerosis of the cavernous and supraclinoid segments of the bilateral carotid arteries without significant stenosis. MRI of the brain without contrast done on 10/02/2023 revealed numerous subcentimeter acute infarcts in the right cerebral hemisphere mainly in the cortex suggestive of an embolic source. The right facial droop and left upper extremity weakness did improve currently is being admitted for CVA/TIA as well as history of ocular stroke.. Neurology consulted Endovascular consulted PT recommends home Vascular consulted, seen the patient, recommends ultrasound carotids Interval History: 10/04/2023-No overnight issues. Patient is seen and examined, sitting on his bedside chair comfortably, eating breakfast, not in acute distress, denies any new acute complaints Case and plan discussed with patient and bedside nurse. All questions answered. Past Medical History: No past medical history on file. NPO diet without enteral medications 24HR INTAKE/OUTPUT: No intake or output data in the 24 hours ending 10/04/23 0822 LABS: CBC: Recent Labs 10/04/23 0752 WBC 8.3 RBC 4.76 HGB 11.3* HCT 39.6* MCV 83.2 RDW 17.9* PLT 201 BMP: Recent Labs 10/04/23 0736 NA 134* K 4.4 CL 105 CO2 19* BUN 17 CREATININE 0.77 GLUCOSE 177* CALCIUM 9.3 ANIONGAP 11 LIVER PROFILE:No results for input(s): AST, ALT, BILITOT, ALKPHOS, PROT in the last 72 hours. No lab exists for component: LABALBU PT/INR: No results for input(s): PROTIME, INR in the last 72 hours. CARDIAC ENZYMES: No results for input(s): TROPONINI in the last 72 hours. Procalcitonin: No results found for: PROCAL COVID-19 PCR: No results for input(s): COVID19 in the last 72 hours. Objective: Vitals: BP 116/73 (BP Location: Right arm, Patient Position: Lying) Pulse 80 Temp 36.1 C (97 F)(Temporal) Resp 16 SpO2 96% Pulse Ox: SpO2 Av.3 % Min: 93 % Max: 97 % Supplemental O2: Physical Exam HENT: Head: Normocephalic and atraumatic. Mouth/Throat: Mouth: Mucous membranes are moist. Cardiovascular: Rate and Rhythm: Normal rate and regular rhythm. Pulmonary: Effort: Pulmonary effort is normal. Abdominal: Palpations: Abdomen is soft. Skin: General: Skin is warm and dry. Neurological: Mental Status: He is alert and oriented to person, place, and time. Psychiatric: Mood and Affect: Mood normal. NIH Stroke Scale: 1 Medications: Scheduled PRN amLODIPine, 5 mg, Oral, Daily apixaban, 5 mg, Oral, BID aspirin, 81 mg, Oral, Daily atorvastatin, 80 mg, Oral, Nightly busPIRone, 10 mg, Oral, TID dapagliflozin, 5 mg, Oral, Daily DULoxetine, 60 mg, Oral, Daily furosemide, 40 mg, Oral, BID glipiZIDE, 5 mg, Oral, qAM AC insulin regular, 20 Units, SubCUTAneous, TID WC levothyroxine, 112 mcg, Oral, qAM AC metoprolol succinate XL, 100 mg, Oral, Daily pantoprazole, 40 mg, Oral, qAM AC sodium chloride, 250 mL, IntraVENous, Once sodium chloride 0.9%, 5-40 mL, IntraVENous, q12h tamsulosin, 0.4 mg, Oral, Daily PRN medications: dextrose, dextrose, glucagon (rDNA), glucose, labetalol, sodium chloride, sodium chloride 0.9% Continuous sodium chloride, 50 mL/hr Assessment Data: (CAT1) Reviewed 3 or more notes from different specialty or health system (each=1). (CAT1) Reviewed 3 or more labs/studies ordered by another provider not previously counted (each=1, panels count as 1). (CAT1) Ordered 3 or more new labs and/or studies (each=1, panels count as 1). 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 Bilateral carotid artery stenosis right greater than left Intermittent atrial fibrillation currently in sinus rhythm. Stable chronic problems affecting care, new non-acute diagnoses: 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 Morbid obesity Hyperlipidemia Plan As a result of the above findings & factors, the following mgmt was pursued: -Vascular consultation, recommends ultrasound carotids -Neurology consultation -Endovascular consulted -Home medications as ordered -Continue to monitor glycemic status. - am labs, replace lytes prn - PT/OT/CM/SW - delirium precautions: increase activity, limit nighttime disturbances, and avoid anticholinergic meds, benzos, etc - DVT prophylaxis: encourage ambulation and already anticoagulated Complexity: Acute illness or injury posing a threat to life or body function (HIGH). 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 No Harmeet Stallworth MD Division of Hospitalist Medicine Inpatient Medical Services/[facility] documented in this encounterSGeorgetown Behavioral [id number] Plan of care note* Care Plan - Dalila Helms RN - 10/05/2023 3:55 AM EDT The patient is Moderately Stable - Low risk of patient condition declining or worsening The patient's goals for the shift include improved mental status The clinical goals for the shift include easily orient Over the shift, the patient did not make progress toward the following goals. Barriers to progression include mild confusion. Recommendations to address these barriers include reorient frequently. [id number] Discharge instructions* Discharge Instructions* Nely Lambert RN - 10/04/2023 12:06 PM EDT Refer to the Understanding Stroke Booklet given to you, written material provided to patient/family, addressing all signs & symptoms of a stroke, which are: sudden numbness or weakness of the face, arm or leg, especially on one side of the body sudden confusion sudden difficulty speaking or understanding sudden trouble seeing in one or both eyes sudden trouble walking,dizziness, loss of balance or coordination sudden severe headache with no known cause syncope or temporary loss of consciousness seizure Explained the need to call EMS (911) immediately if signs & symptoms occur. Discussed medications that the patient is taking, will review medications again prior to discharge, risk factors, and the need for follow-up with a physician/FIELD INSTALLATION TECHNICIAN/PA after discharge. NELY LAMBERT RN on 10/04/23 at 12:05 PM Discussed the patient s personal risk factors for Stroke /TIA with patient/family, and ways to reduce the risk for a recurrent stroke. Patient's personal risk factors which were identified are: [x] High blood pressure [x] High cholesterol [] Atrial fibrillation [x] Diabetes [] Smoking/e-cigarettes/vaping [] Smokeless tobacco [] Overweight [] Lack of Exercise [] Sleep apnea [x] Prior heart disease or heart attack [] Excessive alcohol use [] Use of illicit drugs [x] Personal history of previous TIA or stroke [] Family history of stroke or heart disease [x] Carotid stenosis [x] Heart failure [] Patent Foramen Ovale [] Migraine [] Hormone replacement therapy [] Current (up to six weeks post ) [] Depression [] Sickle Cell [] Renal insufficiency - chronic [] None Refer to Understanding Stroke Booklet. Advised patient that risk for stroke/TIA can be reduced by modifying/controlling risk factors. Patient advised to take medications as prescribed, which will be detailed in the discharge instructions, and to not stop taking them without consulting a physician. In addition, pt. advised to maintain a healthy diet, exercise regularly and to not smoke. NELY LAMBERT RN on 10/04/23 at 12:05 PM * Attachments The following attachments cannot be sent through Care Everywhere. * Recovery After Stroke (Moroccan) * Caring for a Loved One After a Stroke (Moroccan) * Stroke (Moroccan) documented in this [facility]07-05-2024 Note* Care Coordination - Gris Keith RN - 10/04/2023 11:19 AM EDT Care Managment Initial Assessment Date: 10/04/2023 Patient Name: Krunal Leos : 1965 Patient Information Source of Information: Patient Cognition/Language: WFL - Within Functional Limits Permission given to speak with patient medical center representative/caregiver as indicated: Confirmation of Payer with patient/family: Yes Payer Name: [employer] [place] : No Confirmation of Primary Care Physician: Confirmed PCP Name: Dr Khan Seen in last 2 years?: Yes Primary Caregiver: Self If assistance needed, confirmed caregiver ready, willing and able to care for patient at discharge: Confirmed with: Living Arrangements Current Residence: House Number of Floors 2 Number of Entry Steps: Bed/Bath Levels: Both second floor Facility: Facility Name: Plan to Return: Lives with: Spouse/significant other, Children Support Systems: Spouse/significant other, Children, Family members, Friends/neighbors Activities of Daily Living Ambulation: Independent Bathing/Dressing: Independent Elimination/Continence/Toileting: Independent Feeding: Independent Who Assists with Activities of Daily Living: Instrumental Activities of Daily Living Prescription Coverage: Yes [facility]acy Used: [facility] Medication Management: Independent Transportation/Shopping: Independent Transportation Mode: Car Needs Assistance with Transportation at Discharge: No Meal Preparation: Independent Laundry/Cleaning: Independent Finances/Bill Paying: Independent Communication: Independent Types of Care Services/Equipment Utilized Care Services: (n/a) Dialysis Type: NA Durable Medical Equipment: CPap Patient's Goal/Discharge Plan Patient expects to be discharged to: home Discharge Planning Actions: Continue to follow Patient's Choice Rights and [employer] and Collaborative Relationships Disclosed as Indicated for Post-Acute Care: Interdisciplinary Team Engagement: Social Work Referral for: Additional Information: Went into room introduced self and role to pt. He appears to be A 0 x 3. He was transferred from [facility] with CVA/TIA. Vascular and Neurology have been consulted. Needs carotid US. Anticipate home with no needs when stable.. . Gris Keith RN [id number] Note* Care Coordination - Gris Keith RN - 10/04/2023 11:19 AM EDT Care Managment Initial Assessment Date: 10/04/2023 Patient Name: Krunal Leos : 1965 Patient Information Source of Information: Patient Cognition/Language: WFL - Within Functional Limits Permission given to speak with patient medical center representative/caregiver as indicated: Confirmation of Payer with patient/family: Yes Payer Name: [employer] [place]: No Confirmation of Primary Care Physician: Confirmed PCP Name: Dr Khan Seen in last 2 years?: Yes Primary Caregiver: Self If assistance needed, confirmed caregiver ready, willing and able to care for patient at discharge: Confirmed with: Living Arrangements Current Residence: House Number of Floors 2 Number of Entry Steps: Bed/Bath Levels: Both second floor Facility: Facility Name: Plan to Return: Lives with: Spouse/significant other, Children Support Systems: Spouse/significant other, Children, Family members, Friends/neighbors Activities of Daily Living Ambulation: Independent Bathing/Dressing: Independent Elimination/Continence/Toileting: Independent Feeding: Independent Who Assists with Activities of Daily Living: Instrumental Activities of Daily Living Prescription Coverage: Yes [facility]acy Used: [facility] Medication Management: Independent Transportation/Shopping: Independent Transportation Mode: Car Needs Assistance with Transportation at Discharge: No Meal Preparation: Independent Laundry/Cleaning: Independent Finances/Bill Paying: Independent Communication: Independent Types of Care Services/Equipment Utilized Care Services: (n/a) Dialysis Type: NA Durable Medical Equipment: CPap Patient's Goal/Discharge Plan Patient expects to be discharged to: home Discharge Planning Actions: Continue to follow Patient's Choice Rights and [employer] and Collaborative Relationships Disclosed as Indicated for Post-Acute Care: Interdisciplinary Team Engagement: Social Work Referral for: Additional Information: Went into room introduced self and role to pt. He appears to be A 0 x 3. He was transferred from [facility] with CVA/TIA. Vascular and Neurology have been consulted. Needs carotid US. Anticipate home with no needs when stable.. . Gris Keith RN [facility]07-05-2024 Consult note* Oziel Culp MD - 10/04/2023 10:09 AM EDTAssociated Order(s): Inpatient consult to Endovascular Neurology-- Inpatient consult to Endovascular Neurology-- Consult performed by: Mey Loya APRN - LEGISLATIVE CORRESPONDENT Consult ordered by: Raphael Stone MD Reason for consult: vertebbral artery occlusion/ stenosis History Of Present Illness Krunal Leos is a 58 y.o. male presenting with left face and hand weakness in setting of chronic dizziness. Pt does have history of atrial fibrillation on Eliquis. 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 Usually occurs at rest. He does not have any recollection of falls or neck injury in the past. He reports that the face and hand weakness has completely resolved. Past Medical History He has no past medical history on file. Surgical History He has no past surgical history on file. Social History He has no history on file for tobacco use, alcohol use, and drug use. Allergies Patient has no allergy information on record. Medications No medications prior to admission. Review of Systems Constitutional: Positive for activity change. HENT: Negative. Eyes: Negative. Respiratory: Negative. Cardiovascular: Negative. Gastrointestinal: Negative. Endocrine: Negative. Genitourinary: Negative. Musculoskeletal: Positive for arthralgias. Skin: Negative. Allergic/Immunologic: Negative. Neurological: Negative. Hematological: Negative. Psychiatric/Behavioral: Negative. Neurological Exam Mental Status Oriented to person, place, time and situation. Speech is normal. Language is fluent with no aphasia. Attention and concentration are normal. Cranial Nerves CN II: Visual acuity is normal. Visual goldberg full to confrontation. CN III, IV, : Extraocular movements intact bilaterally. Normal lids and orbits bilaterally. Pupils equal round and reactive to light bilaterally. CN V: Facial sensation is normal. CN VII: Full and symmetric facial movement. CN VIII: Hearing is normal. CN IX, X: Palate elevates symmetrically. Normal gag reflex. CN XI: Shoulder shrug strength is normal. CN XII: Tongue midline without atrophy or fasciculations. Motor Normal muscle bulk throughout. No fasciculations present. Normal muscle tone. Strength is 5/5 throughout all four extremities. Sensory Sensation is intact to light touch, pinprick, vibration and proprioception in all four extremities. Reflexes Deep tendon reflexes are 2+ and symmetric in all four extremities. Coordination Edmywy-zb-fboc, rapid alternating movements and dzzc-kj-odgg normal bilaterally without dysmetria. Awake and alert PERRLA Physical Exam Eyes: General: Lids are normal. Extraocular Movements: Extraocular movements intact. Pupils: Pupils are equal, round, and reactive to light. Neurological: Motor: Motor strength is normal. Coordination: Coordination is intact. Deep Tendon Reflexes: Reflexes are normal and symmetric. Psychiatric: Speech: Speech normal. Last Recorded Vitals Blood pressure 134/69, pulse 79, temperature 36.3 C (97.3 F), temperature source Temporal, resp. rate 16, SpO2 93%. Relevant Results CT head with contrast- occlusion of left vertebral artery at the level of V3 extending beyond the field of view in with reconstitution of the left v4 segment with contrasted blood CT Head brain without contrast- showed no acute intercranial abnormality CT Neck - Complete occlusion of the left vertebral artery from the origin to the V3 segment. Moderate stenosis of the bilateral internal carotid arteries per NASCET criteria. Moderate stenosis of theleft external carotid artery just distal to the carotid bifurcation and severe stenosis of the right external carotid artery just distal to the carotid bifurcation. MRI Brain without contrast- Numerous sub centimeter acute infarcts in the right cerebral hemispheremainly in the cortex suggestive of an embolic source. CUS <50% stenosis in the right internal carotid artery. Calcific plaque (proximal) in the right internal carotid artery. Right External Carotid Artery: >50% stenosis. Moderate and heterogeneous plaque (proximal). Normal antegrade flow involving the right vertebral artery. <50% stenosis in the left internal carotid artery. Mild, heterogeneous and calcific plaque (proximal) in the left internal carotid artery. Left Subclavian Artery: >50% stenosis. Moderate and heterogeneous plaque. Subclavian has turbulent flow. Normal antegrade flow involving the left vertebral artery. Assessment/Plan Active Problems: There are no active Hospital Problems. 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 Culp Attending Note: Patient seen independently and examined at bedside with my COLLIN. I performed a history and physical examination of the patient as well as have personally reviewed imaging documented in the note. Management dicussed with my COLLIN during rounds. I reviewed the note and agree with the History, physical examination, documented findings and plan of care with the following addendum: 58 yo man with right hemispheric ischemic stroke. 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 I have reviewed the images, and in particular the reconstituted pictures of the right MCA. I agree with the radiology read, and do not appreciate significant right MCA stenosis on the source images. Suspect embolic stroke etiology (despite anticoagulation) vs. atheroembolus. There is no severe symptomatic stenosis to treat at this time. Recommend continued aggressive medical therapy and continuation of home medications. He can follow in outpatient endovascular clinic in 6-8 weeks to follow aforementioned cerebrovascular issues. No further recommendations. Please call with questions. Personal discussion of test results and plan of care with: Family, Critical Care Team, Admitting Team, ., . Personal review of: Imaging,Labs,ECHO},.},. [place] Phone: [phone] Consult note* Oziel Culp MD - 10/04/2023 10:09 AM EDTAssociated Order(s): Inpatient consult to Endovascular Neurology-- Inpatient consult to Endovascular Neurology-- Consult performed by: Mey Loya APRN - [facility] Consult ordered by: Raphael Stone MD Reason for consult: vertebbral artery occlusion/ stenosis History Of Present Illness Krunal Leos is a 58 y.o. male presenting with left face and hand weakness in setting of chronic dizziness. Pt does have history of atrial fibrillation on Eliquis. Pt reports senior care episodic room spinning with diaphoresis that lasts from 5-10 minutes. Usually occurs at rest. He does not have any recollection of falls or neck injury in the past. He reports that the face and hand weakness has completely resolved. Past Medical History He has no past medical history on file. Surgical History He has no past surgical history on file. Social History He has no history on file for tobacco use, alcohol use, and drug use. Allergies Patient has no allergy information on record. Medications No medications prior to admission. Review of Systems Constitutional: Positive for activity change. HENT: Negative. Eyes: Negative. Respiratory: Negative. Cardiovascular: Negative. Gastrointestinal: Negative. Endocrine: Negative. Genitourinary: Negative. Musculoskeletal: Positive for arthralgias. Skin: Negative. Allergic/Immunologic: Negative. Neurological: Negative. Hematological: Negative. Psychiatric/Behavioral: Negative. Neurological Exam Mental Status Oriented to person, place, time and situation. Speech is normal. Language is fluent with no aphasia. Attention and concentration are normal. Cranial Nerves CN II: Visual acuity is normal. Visual goldberg full to confrontation. CN III, IV, : Extraocular movements intact bilaterally. Normal lids and orbits bilaterally. Pupils equal round and reactive to light bilaterally. CN V: Facial sensation is normal. CN VII: Full and symmetric facial movement. CN VIII: Hearing is normal. CN IX, X: Palate elevates symmetrically. Normal gag reflex. CN XI: Shoulder shrug strength is normal. CN XII: Tongue midline without atrophy or fasciculations. Motor Normal muscle bulk throughout. No fasciculations present. Normal muscle tone. Strength is 5/5 throughout all four extremities. Sensory Sensation is intact to light touch, pinprick, vibration and proprioception in all four extremities. Reflexes Deep tendon reflexes are 2+ and symmetric in all four extremities. Coordination Gheaiw-[id number], rapid alternating movements and wqhz-fk-delb normal bilaterally without dysmetria. Awake and alert PERRLA Physical Exam Eyes: General: Lids are normal. Extraocular Movements: Extraocular movements intact. Pupils: Pupils are equal, round, and reactive to light. Neurological: Motor: Motor strength is normal. Coordination: Coordination is intact. Deep Tendon Reflexes: Reflexes are normal and symmetric. Psychiatric: Speech: Speech normal. Last Recorded Vitals Blood pressure 134/69, pulse 79, temperature 36.3 C (97.3 F), temperature source Temporal, resp. rate 16, SpO2 93%. Relevant Results CT head with contrast- occlusion of left vertebral artery at the level of V3 extending beyond the field of view in with reconstitution of the left v4 segment with contrasted blood CT Head brain without contrast- showed no acute intercranial abnormality CT Neck - Complete occlusion of the left vertebral artery from the origin to the V3 segment. Moderate stenosis of the bilateral internal carotid arteries per NASCET criteria. Moderate stenosis of theleft external carotid artery just distal to the carotid bifurcation and severe stenosis of the right external carotid artery just distal to the carotid bifurcation. MRI Brain without contrast- Numerous sub centimeter acute infarcts in the right cerebral hemispheremainly in the cortex suggestive of an embolic source. CUS <50% stenosis in the right internal carotid artery. Calcific plaque (proximal) in the right internal carotid artery. Right External Carotid Artery: >50% stenosis. Moderate and heterogeneous plaque (proximal). Normal antegrade flow involving the right vertebral artery. <50% stenosis in the left internal carotid artery. Mild, heterogeneous and calcific plaque (proximal) in the left internal carotid artery. Left Subclavian Artery: >50% stenosis. Moderate and heterogeneous plaque. Subclavian has turbulent flow. Normal antegrade flow involving the left vertebral artery. Assessment/Plan Active Problems: There are no active Hospital Problems. 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 Culp Attending Note: Patient seen independently and examined at bedside with my COLLIN. I performed a history and physical examination of the patient as well as have personally reviewed imaging documented in the note. Management dicussed with my COLLIN during rounds. I reviewed the note and agree with the History, physical examination, documented findings and plan of care with the following addendum: 58 yo man with right hemispheric ischemic stroke. 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 I have reviewed the images, and in particular the reconstituted pictures of the right MCA. I agree with the radiology read, and do not appreciate significant right MCA stenosis on the source images. Suspect embolic stroke etiology (despite anticoagulation) vs. atheroembolus. There is no severe symptomatic stenosis to treat at this time. Recommend continued aggressive medical therapy and continuation of home medications. He can follow in outpatient endovascular clinic in 6-8 weeks to follow aforementioned cerebrovascular issues. No further recommendations. Please call with questions. Personal discussion of test results and plan of care with: Family, Critical Care Team, Admitting Team, ., . Personal review of: Imaging,Labs,ECHO},.},. * Pili Connolly MD - 10/04/2023 8:31 AM EDTAssociated Order(s): IP CONSULT TO NEUROLOGY; IP CONSULT TO STROKE TEAM Images from the original note were not included. INITIAL CONSULT NOTE. STROKE SERVICE Patient Name: Krunal Leos Patient : 1965 Acct: [id number] Date of Admission: 10/03/2023 Room[facility]Bed: [facility] A PCP: RADHA KHAN History of Present Ilness: 58 y.o. is man with the chief Complaint of: transferred from [facility] evaluation of severe cerebrovascular disease presenting with left facial and hand weakness which occurred in the setting of 3 yrs history of dizziness acutely worsen in the last few days. At OSH CTA demonstrated presence of severe BA stenosis and occlusion of the left vertebral artery which apparently is symptomatic based on acute IS findings in MRI from Currently on Eliquis and ASA , ( Cymbalta also with platelet function altering effect ) However also receiving Lasix 40 abd NS at 50 BP med [facility] Patient feeling much better not active complaints or neurological findings at the time of my evaluation He has been seen already by vascular surgery ultrasound completed and determination of ICA stenosis< 50 % I communicated with Dr Mindi Culp who evaluated also patient 's imaging and reported NO interventions, Medical therapy at this time Patient was on Apixavan and ASA 81 mg tabs at the time of his event Past Medical History: No past medical history on file. Past Surgical History: No past surgical history on file. Home Medications: Prior to Admission medications Not on File Current Hospital Medications: Current Facility-Administered Medications: amLODIPine (Norvasc) tablet 5 mg, 5 mg, Oral, Daily, Michael Rico MD apixaban (Eliquis) tablet 5 mg, 5 mg, Oral, BID, Michael Rico MD, 5 mg at 10/03/232241 aspirin EC tablet 81 mg, 81 mg, Oral, Daily, Michael Rico MD atorvastatin (Lipitor) tablet 80 mg, 80 mg, Oral, Nightly, Michael Rico MD, 80 mg at 10/03/232241 busPIRone (Buspar) tablet 10 mg, 10 mg, Oral, TID, Michael Rico MD, 10 mg at 10/03/232 dapagliflozin (Farxiga) tablet 5 mg, 5 mg, Oral, Daily, Michael Rico MD dextrose 5 % infusion, 100 mL/hr, IntraVENous, PRN, Michael Rico MD dextrose 50 % solution 12.5 g, 12.5 g, IntraVENous, PRN, Michael Rico MD DULoxetine (Cymbalta) DR capsule 60 mg, 60 mg, Oral, Daily, Michael Rico MD furosemide (Lasix) tablet 40 mg, 40 mg, Oral, BID, Michael Rico MD, 40 mg at 10/04/23 05 glipiZIDE (Glucotrol) tablet 5 mg, 5 mg, Oral, Immanuel COLE, Michael Rico MD, 5 mg at 10/04/23 05 glucagon (human recombinant) injection 1 mg, 1 mg, IntraMUSCular, PRN, Michael Rico MD glucose oral gel 15 g, 15 g, Oral, PRN, Michael Rico MD insulin regular (HumuLIN R,NovoLIN R) injection 20 Units, 20 Units, SubCUTAneous, TID WC, Michael Rico MD labetalol (Normodyne,Trandate) injection 10 mg, 10 mg, IntraVENous, q10 min PRN, Michael Rico MD levothyroxine (Synthroid, Levoxyl) tablet 112 mcg, 112 mcg, Oral, Michael Leyva MD, 112mcg at 10/04/23 0555 metoprolol succinate XL (Toprol-XL) 24 hr tablet 100 mg, 100 mg, Oral, Daily, Michael Rico MD pantoprazole (ProtoNix) EC tablet 40 mg, 40 mg, Oral, Michael Leyva MD, 40 mg at 10/04/23 0555 sodium chloride 0.9 % bolus 250 mL, 250 mL, IntraVENous, Once, Michael Rico MD sodium chloride 0.9 % infusion, 5-250 mL/hr, IntraVENous, PRN, Michael Rico MD sodium chloride 0.9 % infusion, 50 mL/hr, IntraVENous, Continuous, Michael Rico MD sodium chloride 0.9% (NS) flush 5-40 mL, 5-40 mL, IntraVENous, q12h, Michael Rico MD sodium chloride 0.9% (NS) flush 5-40 mL, 5-40 mL, IntraVENous, PRN, Michael Rico MD tamsulosin (Flomax) 24 hr capsule 0.4 mg, 0.4 mg, Oral, Daily, Michael Rico MD Continuous Infusions: sodium chloride, 50 mL/hr Allergies: Patient has no allergy information on record. Social History: TOBACCO: has no history on file for tobacco use. ETOH: has no history on file for alcohol use. RECREATIONAL DRUG USE: Social History Substance and Sexual Activity Drug Use Not on file Family History: :. No family history on file. ROS; : patient feels well no other neurological complaints Review of Systems Physical Examination: Patient Vitals for the past 8 hrs: BP Temp Temp src Pulse Resp SpO2 10/04/23 0620 116/73 36.1 C (97 F) Temporal 80 16 96 % 10/04/23 0222 109/79 36.7 C (98 F) Temporal 81 18 93 % No intake/output data recorded. General Physical Examination: General: Obese , comfortable HEENT:Normocephalic, atraumaticl CV: S1+S2, RRR, no MRG. Pulm:CTA b/l, unlabored Abdomen: Soft NT/ND. BS + Skin: Intact without ulcers, breakdowns or discoloration Extremities: normal with no edema or cyanosis Orthopedic limitation; N/A Pulses: Intact peripherally Carotid auscultation :No bruits Neurological Examination: Higher Functions: Mental Status Exam: Level of Alertness:Awake Orientation: Normal to self, time, place Memory: Normal Fund of Knowledge: Normal Language: Normal Dysarthria not present Cranial Nerves: -II Visual acuity: abnormal, limited due to patient unable to perform exam -II Visual goldberg: normal -III Pupils (~ 2 mm OD, 2 mm OU) equal, round, reactive to light -III-IV- Extraocular Movements: intact -Nystagmus not present -Saccades and pursuits normal -V Facial sensation: intact Corneal's Intact bilateral -VII Facial strength: abnormal I can see some asymmetry with decreased in blinking on his left side, -VIII Hearing: intact -IX-X- Gag reflex present -X Palate:intact -XI Shoulder shrug: {INTACT/ABNORMAL:[id number]::intactNormal -XII Tongue movement: Normal Funduscopic Exam: normal, no edema or exudates both eyes Motor Examination: Tone after evaluation of 4 limbs, the following findings applied: Normal . . -Bulk: normal -Muscle Stretchafter evaluation of all limbs, and axial musculature the following findings applied: Drift: present . -Reflexes: after evaluation of 4 limbs, the following findings applied ; . -Plantar responce: Flexor bilaterally Sensory Intact to light touch, pain / temperature, proprioception, Coordination: Arms Normal finger to nose Legs Intact heel knee hudson testing Tremors not present Gait normal NIHSS: 1 Results Labs: Last 24hrs Recent Results (from the past 24 hour(s)) Hemoglobin A1c Collection Time: 10/04/23 4:06 AM Result Value Ref Range HEMOGLOBIN A1C 7.8 (H) <5.7 % ESTIMATED AVERAGE GLUCOSE 177 mg/dL ECG 12 lead if not already done by Squad Collection Time: 10/04/23 6:29 AM Result Value Ref Range Heart Rate 77 bpm QRSD Interval 113 ms QT Interval 401 ms QTC Interval 453 ms P [place] 12 degrees QRS [place] -16 degrees T Wave [place] 16 degrees AL Interval 160 ms POCT glucose meter Collection Time: 10/04/23 6:46 AM Result Value Ref Range Glucose 193 (H) 70 - 100 mg/dL Basic metabolic panel Collection Time: 10/04/23 7:36 AM Result Value Ref Range SODIUM 134 (L) 135 - 145 mmol/L POTASSIUM 4.4 3.5 - 5.1 mmol/L CHLORIDE 105 98 - 107 mmol/L CARBON DIOXIDE 19 (L) 22 - 30 mmol/L UREA NITROGEN 17 9 - 20 mg/dL CREATININE 0.77 0.66 - 1.25 mg/dL GLUCOSE 177 (H) 70 - 100 mg/dL CALCIUM 9.3 8.4 - 10.4 mg/dL ANION GAP 11 3 - 13 mmol/L eGFR >90.0 >60.0 mL/min/1.73m*2 CBC Collection Time: 10/04/23 7:52 AM Result Value Ref Range Auto WBC 8.3 3.6 - 10.7 10*3/uL RBC 4.76 4.40 - 5.90 10*6/uL Hemoglobin 11.3 (L) 13.0 - 18.0 g/dL Hematocrit 39.6 (L) 40.0 - 52.0 % MCV 83.2 77.0 - 99.0 fL MCH 23.7 (L) 26.0 - 34.0 pg MCHC 28.5 (L) 30.5 - 36.0 % RDW 17.9 (H) 11.5 - 15.0 % Platelets 201 140 - 440 10*3/uL MPV 9.5 9.0 - 12.7 fL Radiology Personal review: Carotid ultrasound <50% stenosis in the right internal carotid artery. Calcific plaque (proximal) in the right internal carotid artery. Right External Carotid Artery: >50% stenosis. Moderate and heterogeneous plaque (proximal). Normal antegrade flow involving the right vertebral artery. <50% stenosis in the left internal carotid artery. Mild, heterogeneous and calcific plaque (proximal) in the left internal carotid artery. Left Subclavian Artery: >50% stenosis. Moderate and heterogeneous plaque. Subclavian has turbulent flow. Normal antegrade flow involving the left vertebral artery MRI brain from [place] review ASSESSMENT / PLAN / SUGGESTIONS : - Severe / critical stenosis of the right MCA, symptomatic despite systemic anticoagulation with Apixavan and ASA - Moderate extracranial atherosclerosis disease - Left vertebral occlusion - Athero of the CCA and ICS bilateral < 60 % - Severe atherosclerosis and diffused narrowing of the BA , moderate to severe Other stroke risk factors - HTN on Norvac 5 & Toprol XL Normotensive at this time but I SUGGEST STOPPING BP medication and allowing SBP to be up to 160 - DM type II , uncontrol , - Anemia ( needs to be work up - Morbid obesity BMI 4 -DLP , Lipid studies NOT reported on Atorvastatin 80 and Other diagnosis Depression , on Buspar Cymbalta Hypothyroid , on synthroid GI protection BPH on Flomax Recommendations I have discussed case again with Dr. Culp who will review the imaging and in particular the area of the right MCA stenosis which was not reported by radiologist and decide if there is any further intervention , test needed at this time Patient to remain in the hospital for now Suggest as mentioned above , to hold Novasc and allow the BP to be slight higher Optimization of diabetes per primary team Extensive discussion with patient regarding the need for aggressive hydration If the only option is for medical therapy he is already on MAX medical therapy for what consideration for clear advance directives in case of stroke should be define and documented . No further recommendations from the STROKE service awaiting ENDOVASCULAR recommendations - Neuro Critical Care / stroke Attending I personally interviewed and examined this patient , personally completed completed the note for this patient. I reviewed the chart including MAR, labs, neuroimaging, other imaging studies and discussed my diagnostic impression and patient's plan of care with my COLLIN/resident/ Fellow , student and the consulting team and patient's family members/surrogate decision makers (in cases where the patient is incapacitated and unable to participate in their own care). [x] Encounter Face to Face [x] Consult [x] Time spend [x] 80 [x] Will await to see endovascular recommendations but stroke neurology recommendations as above unless other interventional plans or options Personal discussion of test results and plan of care with: Patient treatments and testing options informed consent and plan of care, Interventional team, Admitting Team, ., . Thank you RADHA KHAN for the opportunity to be involved in this patient's care. * Karol Melissa MD - 10/04/2023 6:34 AM EDT Images from the original note were not included. Vascular Surgery Consultation Note Reason for Consult: REN Euceda? HISTORY OF PRESENT ILLNESS: The patient is a 58 y.o. male with past medial history of CKD, HTN DM, hypothyroid Obesity, BPH, who is admitted to the hospital for treatment of basilar stroke type symptoms as well as left sided facial and hand weakness. Was admitted to OSH noted imaging findings included basilar artery stenosis,V3 occlusion atherosclerosis of BL carotid arteries without significant stenosis MRI completed 10/01 showing numerous subcentimeter acute infarcts in the right cerebral hemisphere mainly in the cortex suggestive of an embolic source. (Unfortunately unable to see any imaging) Patient states a couple days before presentation he noted dizziness symptoms these worsened on the day of presentation to the outside facility he noted left facial weakness left arm weakness he did not have left leg weakness. Had never had symptoms like this before. He presented to the outside facility where he received some medication in the ambulance but unsure of what kind. States he had an ultrasound in the past year of his carotids but no intervention was performed at that time. He has nothad any recurrent stroke symptoms since the initial stroke symptoms. He takes aspirin and Eliquis daily he does have A-fib but in sinus on eval here he has been compliant with his medications. On exam AF, HDS on room air, labs pending IMPRESSION: Krunal Leos presents with stroke like symptoms, imaging done at OSH suggested possibility of carotid disease as well as concurrent vertebral and basilar disease RECOMMENDATIONS: - obtain carotid duplex - reconcile home meds patient on aspirin, statin and Eliquis as an outpatient most recent dose of Eliquis last night - follow up [facility] service evaluation - further plans to follow PMH: CKD, HTN DM, hypothyroid Obesity, BPH, Afib PSH: VATS for empyema, Percutaneous nephrostolithotomy Current Medications: sodium chloride, 50 mL/hr PRN medications: dextrose, dextrose, glucagon (rDNA), glucose, labetalol, sodium chloride, sodium chloride 0.9% amLODIPine, 5 mg, Oral, Daily apixaban, 5 mg, Oral, BID aspirin, 81 mg, Oral, Daily atorvastatin, 80 mg, Oral, Nightly busPIRone, 10 mg, Oral, TID dapagliflozin, 5 mg, Oral, Daily DULoxetine, 60 mg, Oral, Daily furosemide, 40 mg, Oral, BID glipiZIDE, 5 mg, Oral, qAM AC insulin regular, 20 Units, SubCUTAneous, TID WC levothyroxine, 112 mcg, Oral, qAM AC metoprolol succinate XL, 100 mg, Oral, Daily pantoprazole, 40 mg, Oral, qAM AC sodium chloride, 250 mL, IntraVENous, Once sodium chloride 0.9%, 5-40 mL, IntraVENous, q12h tamsulosin, 0.4 mg, Oral, Daily Allergies: Patient has no allergy information on record. Social History Socioeconomic History Marital status: Spouse name: Not on file Number of children: Not on file Years of education: Not on file Highest education level: Not on file Occupational History Not on file Tobacco Use Smoking status: Not on file Smokeless tobacco: Not on file Substance and Sexual Activity Alcohol use: Not on file Drug use: Not on file Sexual activity: Not on file Other Topics Concern Not on file Social History Narrative Not on file Social Determinants of Health Financial Resource Strain: Not on file Food Insecurity: Not on file Transportation Needs: Not on file Physical Activity: Not on file Stress: Not on file Social Connections: Not on file Intimate Partner Violence: Not on file Housing Stability: Not on file No family history on file. REVIEW OF SYSTEMS: The chart was reviewed. 11 point review of systems obtained, and negative unless otherwise mentioned in HPI LABS: No results found for: CREATININE No results found for: WBC, HGB, HCT, MCV, PLT No results found for: INR, PROTIME No results found for: VLDL PHYSICAL EXAM: Vitals: 10/04/23 0620 BP: 116/73 Pulse: 80 Resp: 16 Temp: 36.1 C (97 F) SpO2: 96% CONSTITUTIONAL: awake, alert, cooperative, no apparent distress NECK: Supple, symmetrical, trachea midline, no adenopathy LUNGS: No increased work of breathing, good air exchange CARDIOVASCULAR: Regular rate and rhythm ABDOMEN: Soft, non-distended CHEST: no obvious deformity GENITAL/URINARY: Not examined MUSCULOSKELETAL: There is no redness, warmth, or swelling of the joints. Full range of motion noted. NEUROLOGIC: Awake, alert, oriented to name, place and time. SKIN: normal skin color, texture, no redness, warmth, or swelling Artery Right Left Comments Femoral Pulse [x] Signal [] Pulse [x] Signal [] Popliteal Pulse [] Signal [] Pulse [] Signal [] Dorsalis Pedis Pulse [x] Signal [] Pulse [x] Signal [] Posterior Tibial Pulse [x] Signal [] Pulse [x] Signal [] Other: Carotid Pulse [x] Signal [] Pulse [x] Signal [] LABS: No results found for: WBC, HGB, HCT, PLT, PROTIME, INR, PTT, K, BUN, CREATININE VASCULAR TESTING: Completed at OSH . Associated attestation - Suzy Jauregui MD - 10/04/2023 7:50 PM EDT I saw and evaluated the patient. I agree with the findings and plan of care as documented in the resident s note unless otherwise noted below. CTA images reviewed in PACS as well as carotid duplex. Minimal cervical carotid stenosis, unlikely cause of stroke symptoms. Carotid duplex shows < 50% by velocity criteria on the right and 50-59%stenosis on the left. He endorses left arm weakness which prompted him to go the hospital. The patient notes his symptoms have resolved at this point. 5/5 strength in all extremities on physical exam. Recommend continued medical management. Will plan for 6 month repeat ultrasound for close follow up. This was discussed with the patient and he is agreeable to the plan. documented in this [facility]07-05-2024 NotePHYSICAL THERAPY [facility] Initial Evaluation Name/MRN: Krunal Leos ([id number]) Evaluation Date: 10/04/2023 Date of : 1965 Admission Date: 10/03/2023 7:30 PM Age: 58 y.o. Room/Bed: [facility] Discharge Recommendation: Home independently Equipment Needed: No Assessment IMPRESSION: Pt notes upon admission his greatest issue was coordination of L hand. He also notes states he was as clear as he normally would be. Today, no issues with mobility and remain in normal sinus rhythm with gait. H/o neuropathy and edema in LEs. Bed mobility, transfers indep, amb pushing IV pole modif indep. Will sign off. Diagnosis: CVA, occlusion L vertebral artery Prognosis: good Performance Deficits /Impairments: N/A Decision Making: Low Complexity Subjective Pt in bed. Notes he had been up to bathroom several times. States he feels back to baseline. Notes yesterday, his L hand coordination was markedly decreased. Denies acute pain. Does note baseline edema in LEs and LE neuropathy Past Medical History: No past medical history on file. Past Surgical History: No past surgical history on file. Admission Diagnosis: There are no problems to display for this patient. Medical Precautions: No active isolations Proper PPE donned/doffed in accordance with facility standards. Fall Risk: Gilbert Fall Risk Score: 35 (Medium Risk) Precautions/Restrictions: Lines/Drains/Airways: IV Family/Caregiver Present: none Overall Cognitive Status: WNL Overall Orientation Status: Oriented x4 Vision: glasses, but WFL Hearing: normal Social/Functional History Lives with , dtr, son-in-law. Two step entry to [employer] home. Pt drives, works at [employer]. Son-in-law mows lawn and often orders groceries on line. Notes is disabled--she can perform self-care, but not really household ADLs Prior Level of Function ADL Assistance: Independent Ambulation Assistance: Independent Transfer Assistance: Independent Objective Lower Extremity Assessment AROM: WNL UE ROM: WFL, including rapid opposition of thumb on L hand Strength: WNL (symmetrical) Some baseline numbness in feet, but still can detect touch Bed Mobility: Supine to sit: Independent Transfers Sit to stand: Independent Stand to sit: Independent Ambulation Ambulation 1 Assistive device(s) used: IV pole Assist level: Modified Independent Distance (ft): 300 Quality of gait: slight flexion (approx 5 deg) at hips, else WFL Indep retrieving object from floor. Outcome Measures AM-PAC How much HELP from another person do you currently need Turning from your back to your side while in a flat bed without using bedrails?: None Moving from lying on your back to sitting on the side of a flat bed without using bedrails?: None Moving to and from a bed to a chair (including a wheelchair)?: None Standing up from a chair using your arms (wheelchair or bedside chair)?: None Walking in a hospital room?: None Stair climbing assessed?: No AM-PAC Inpatient Mobility Raw Score (No Stairs) : 20 JH-HLM JH-HLM Score: Walked 250 ft or more (i.e. several laps on unit) Plan No skilled acute PT indicated at this time. Please reconsult should changes occur. Safety/Education Safety Safety Devices in place: call light within reach, left in chair, and nurse notified Restraints: No Education Remain active Goals Patient Stated Goal: go home. Therapy Time Individual Co-treatment Time In 913 Time Out 0931 Minutes 17 Fran Lewis PT Patient's Physical Therapy Plan of Care supervision is transferred to a [facility] Therapy Services Physical Therapist. Goals and/or treatment plan was established in collaboration with patient/family/other representatives.[facility]07-05-2024 Consult note* Pili Connolly MD - 10/04/2023 8:31 AM EDT Associated Order(s): IP CONSULT TO NEUROLOGY; IP CONSULT TO STROKE TEAM Images from the original note were not included. INITIAL CONSULT NOTE. STROKE SERVICE Patient Name: Krunal Leos Patient : 1965 Acct: [id number] Date of Admission: 10/03/2023 Room/Bed: [facility] A PCP: RADHA KHAN History of Present Ilness: 58 y.o. is man with the chief Complaint of: transferred from [facility] evaluation of severe cerebrovascular disease presenting with left facial and hand weakness which occurred in the setting of 3 yrs history of dizziness acutely worsen in the last few days. At OSH CTA demonstrated presence of severe BA stenosis and occlusion of the left vertebral artery which apparently is symptomatic based on acute IS findings in MRI from Currently on Eliquis and ASA , ( Cymbalta also with platelet function altering effect ) However also receiving Lasix 40 abd NS at 50 BP med Norvasc Patient feeling much better not active complaints or neurological findings at the time of my evaluation He has been seen already by vascular surgery ultrasound completed and determination of ICA stenosis< 50 % I communicated with Dr Mindi Culp who evaluated also patient 's imaging and reported NO interventions, Medical therapy at this time Patient was on Apixavan and ASA 81 mg tabs at the time of his event Past Medical History: No past medical history on file. Past Surgical History: No past surgical history on file. Home Medications: Prior to Admission medications Not on File Current Hospital Medications: Current Facility-Administered Medications: amLODIPine (Norvasc) tablet 5 mg, 5 mg, Oral, Daily, Michael Rico MD apixaban (Eliquis) tablet 5 mg, 5 mg, Oral, BID, Michael Rico MD, 5 mg at 10/03/232241 aspirin EC tablet 81 mg, 81 mg, Oral, Daily, Michael Rico MD atorvastatin (Lipitor) tablet 80 mg, 80 mg, Oral, Nightly, Michael Rico MD, 80 mg at 10/03/232241 busPIRone (Buspar) tablet 10 mg, 10 mg, Oral, TID, Michael Rico MD, 10 mg at 10/03/23 2242 dapagliflozin (Farxiga) tablet 5 mg, 5 mg, Oral, Daily, Michael Rico MD dextrose 5 % infusion, 100 mL/hr, IntraVENous, PRN, Michael Rico MD dextrose 50 % solution 12.5 g, 12.5 g, IntraVENous, PRN, Michael Rico MD DULoxetine (Cymbalta) DR capsule 60 mg, 60 mg, Oral, Daily, Michael Rico MD furosemide (Lasix) tablet 40 mg, 40 mg, Oral, BID, Michael Rico MD, 40 mg at 10/04/23 0555 glipiZIDE (Glucotrol) tablet 5 mg, 5 mg, Oral, [facility], Michael Rico MD, 5 mg at 10/04/23 0555 glucagon (human recombinant) injection 1 mg, 1 mg, IntraMUSCular, PRN, Michael Rico MD glucose oral gel 15 g, 15 g, Oral, PRN, Michael Rico MD insulin regular (HumuLIN R,NovoLIN R) injection 20 Units, 20 Units, SubCUTAneous, TID WC, Michael Rico MD labetalol (Normodyne,Trandate) injection 10 mg, 10 mg, IntraVENous, q10 min PRN, Michael Rico MD levothyroxine (Synthroid, Levoxyl) tablet 112 mcg, 112 mcg, Oral, [facility], Michael Rico MD, 112mcg at 10/04/23 0555 metoprolol succinate XL (Toprol-XL) 24 hr tablet 100 mg, 100 mg, Oral, Daily, Michael Rico MD pantoprazole (ProtoNix) EC tablet 40 mg, 40 mg, Oral, qAM AC, Michael Rico MD, 40 mg at 10/04/23 0555 sodium chloride 0.9 % bolus 250 mL, 250 mL, IntraVENous, Once, Michael Rico MD sodium chloride 0.9 % infusion, 5-250 mL/hr, IntraVENous, PRN, Michael Rico MD sodium chloride 0.9 % infusion, 50 mL/hr, IntraVENous, Continuous, Michael Rico MD sodium chloride 0.9% (NS) flush 5-40 mL, 5-40 mL, IntraVENous, q12h, Michael Rico MD sodium chloride 0.9% (NS) flush 5-40 mL, 5-40 mL, IntraVENous, PRN, Michael Rico MD tamsulosin (Flomax) 24 hr capsule 0.4 mg, 0.4 mg, Oral, Daily, Michael Rico MD Continuous Infusions: sodium chloride, 50 mL/hr Allergies: Patient has no allergy information on record. Social History: TOBACCO: has no history on file for tobacco use. ETOH: has no history on file for alcohol use. RECREATIONAL DRUG USE: Social History Substance and Sexual Activity Drug Use Not on file Family History: :. No family history on file. ROS; : patient feels well no other neurological complaints Review of Systems Physical Examination: Patient Vitals for the past 8 hrs: BP Temp Temp src Pulse Resp SpO2 10/04/23 0620 116/73 36.1 C (97 F) Temporal 80 16 96 % 10/04/23 0222 109/79 36.7 C (98 F) Temporal 81 18 93 % No intake/output data recorded. General Physical Examination: General: Obese , comfortable HEENT:Normocephalic, atraumaticl CV: S1+S2, RRR, no MRG. Pulm:CTA b/l, unlabored Abdomen: Soft NT/ND. BS + Skin: Intact without ulcers, breakdowns or discoloration Extremities: normal with no edema or cyanosis Orthopedic limitation; N/A Pulses: Intact peripherally Carotid auscultation :No bruits Neurological Examination: Higher Functions: Mental Status Exam: Level of Alertness:Awake Orientation: Normal to self, time, place Memory: Normal Fund of Knowledge: Normal Language: Normal Dysarthria not present Cranial Nerves: -II Visual acuity: abnormal, limited due to patient unable to perform exam -II Visual goldberg: normal -III Pupils (~ 2 mm OD, 2 mm OU) equal, round, reactive to light -III-IV- Extraocular Movements: intact -Nystagmus not present -Saccades and pursuits normal -V Facial sensation: intact Corneal's Intact bilateral -VII Facial strength: abnormal I can see some asymmetry with decreased in blinking on his left side, -VIII Hearing: intact -IX-X- Gag reflex present -X Palate:intact -XI Shoulder shrug: {INTACT/ABNORMAL:[id number]::intactNormal -XII Tongue movement: Normal Funduscopic Exam: normal, no edema or exudates both eyes Motor Examination: Tone after evaluation of 4 limbs, the following findings applied: Normal . . -Bulk: normal -Muscle Stretchafter evaluation of all limbs, and axial musculature the following findings applied: Drift: present . -Reflexes: after evaluation of 4 limbs, the following findings applied ; . -Plantar responce: Flexor bilaterally Sensory Intact to light touch, pain / temperature, proprioception, Coordination: Arms Normal finger to nose Legs Intact heel knee hudson testing Tremors not present Gait normal NIHSS: 1 Results Labs: Last 24hrs Recent Results (from the past 24 hour(s)) Hemoglobin A1c Collection Time: 10/04/23 4:06 AM Result Value Ref Range HEMOGLOBIN A1C 7.8 (H) <5.7 % ESTIMATED AVERAGE GLUCOSE 177 mg/dL ECG 12 lead if not already done by Squad Collection Time: 10/04/23 6:29 AM Result Value Ref Range Heart Rate 77 bpm QRSD Interval 113 ms QT Interval 401 ms QTC Interval 453 ms P [place] 12 degrees QRS [place] -16 degrees T Wave [place] 16 degrees AL Interval 160 ms POCT glucose meter Collection Time: 10/04/23 6:46 AM Result Value Ref Range Glucose 193 (H) 70 - 100 mg/dL Basic metabolic panel Collection Time: 10/04/23 7:36 AM Result Value Ref Range SODIUM 134 (L) 135 - 145 mmol/L POTASSIUM 4.4 3.5 - 5.1 mmol/L CHLORIDE 105 98 - 107 mmol/L CARBON DIOXIDE 19 (L) 22 - 30 mmol/L UREA NITROGEN 17 9 - 20 mg/dL CREATININE 0.77 0.66 - 1.25 mg/dL GLUCOSE 177 (H) 70 - 100 mg/dL CALCIUM 9.3 8.4 - 10.4 mg/dL ANION GAP 11 3 - 13 mmol/L eGFR >90.0 >60.0 mL/min/1.73m*2 CBC Collection Time: 10/04/23 7:52 AM Result Value Ref Range Auto WBC 8.3 3.6 - 10.7 10*3/uL RBC 4.76 4.40 - 5.90 10*6/uL Hemoglobin 11.3 (L) 13.0 - 18.0 g/dL Hematocrit 39.6 (L) 40.0 - 52.0 % MCV 83.2 77.0 - 99.0 fL MCH 23.7 (L) 26.0 - 34.0 pg MCHC 28.5 (L) 30.5 - 36.0 % RDW 17.9 (H) 11.5 - 15.0 % Platelets 201 140 - 440 10*3/uL MPV 9.5 9.0 - 12.7 fL Radiology Personal review: Carotid ultrasound <50% stenosis in the right internal carotid artery. Calcific plaque (proximal) in the right internal carotid artery. Right External Carotid Artery: >50% stenosis. Moderate and heterogeneous plaque (proximal). Normal antegrade flow involving the right vertebral artery. <50% stenosis in the left internal carotid artery. Mild, heterogeneous and calcific plaque (proximal) in the left internal carotid artery. Left Subclavian Artery: >50% stenosis. Moderate and heterogeneous plaque. Subclavian has turbulent flow. Normal antegrade flow involving the left vertebral artery MRI brain from [place] review ASSESSMENT / PLAN / SUGGESTIONS : - Severe / critical stenosis of the right MCA, symptomatic despite systemic anticoagulation with Apixavan and ASA - Moderate extracranial atherosclerosis disease - Left vertebral occlusion - Athero of the CCA and ICS bilateral < 60 % - Severe atherosclerosis and diffused narrowing of the BA , moderate to severe Other stroke risk factors - HTN on Norvac 5 & Toprol XL Normotensive at this time but I SUGGEST STOPPING BP medication and allowing SBP to be up to 160 - DM type II , uncontrol , - Anemia ( needs to be work up - Morbid obesity BMI 4 -DLP , Lipid studies NOT reported on Atorvastatin 80 and Other diagnosis Depression , on Buspar Cymbalta Hypothyroid , on synthroid GI protection BPH on Flomax Recommendations I have discussed case again with Dr. Culp who will review the imaging and in particular the area of the right MCA stenosis which was not reported by radiologist and decide if there is any further intervention , test needed at this time Patient to remain in the hospital for now Suggest as mentioned above , to hold Novasc and allow the BP to be slight higher Optimization of diabetes per primary team Extensive discussion with patient regarding the need for aggressive hydration If the only option is for medical therapy he is already on MAX medical therapy for what consideration for clear advance directives in case of stroke should be define and documented . No further recommendations from the STROKE service awaiting ENDOVASCULAR recommendations - Neuro Critical Care / stroke Attending I personally interviewed and examined this patient , personally completed completed the note for this patient. I reviewed the chart including MAR, labs, neuroimaging, other imaging studies and discussed my diagnostic impression and patient's plan of care with my COLLIN/resident/ Fellow , student and the consulting team and patient's family members/surrogate decision makers (in cases where the patient is incapacitated and unable to participate in their own care). [x] Encounter Face to Face [x] Consult [x] Time spend [x] 80 [x] Will await to see endovascular recommendations but stroke neurology recommendations as above unless other interventional plans or options Personal discussion of test results and plan of care with: Patient treatments and testing options informed consent and plan of care, Interventional team, Admitting Team, ., . Thank you RADHA KHAN for the opportunity to be involved in this patient's care. [place] Phone: [phone] NoteHospitalist Progress Note 10/04/2023 Subjective: Admit Date: 10/03/2023 PCP: RADHA KHAN Room#: [id number] A Brief Hospital course: Krunal Leos is a 58 y.o. male presenting with dizziness over the past 3 years however became more severe and more frequent a few days ago was admitted to [facility] after he had left facial weakness left hand weakness and was diagnosed with a CVA. 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 Occlusion of the left vertebral artery at the level of the V3 extending beyond the [id number] with reconstitution. Atherosclerosis of the cavernous and supraclinoid segments of the bilateral carotid arteries without significant stenosis. MRI of the brain without contrast done on 10/02/2023 revealed numerous subcentimeter acute infarcts in the right cerebral hemisphere mainly in the cortex suggestive of an embolic source. The right facial droop and left upper extremity weakness did improve currently is being admitted for CVA/TIA as well as history of ocular stroke.. Neurology consulted Endovascular consulted PT recommends home Vascular consulted, seen the patient, recommends ultrasound carotids Interval History: 10/04/2023-No overnight issues. Patient is seen and examined, sitting on his bedside chair comfortably, eating breakfast, not in acute distress, denies any new acute complaints Case and plan discussed with patient and bedside nurse. All questions answered. Past Medical History: No past medical history on file. NPO diet without enteral medications 24HR INTAKE/OUTPUT: No intake or output data in the 24 hours ending 10/04/23 0822 LABS: CBC: Recent Labs 10/04/23 0752 WBC 8.3 RBC 4.76 HGB 11.3* HCT 39.6* MCV 83.2 RDW 17.9* PLT 201 BMP: Recent Labs 10/04/23 0736 NA 134* K 4.4 CL 105 CO2 19* BUN 17 CREATININE 0.77 GLUCOSE 177* CALCIUM 9.3 ANIONGAP 11 LIVER PROFILE:No results for input(s): AST, ALT, BILITOT, ALKPHOS, PROT in the last 72 hours. No lab exists for component: LABALBU PT/INR: No results for input(s): PROTIME, INR in the last 72 hours. CARDIAC ENZYMES: No results for input(s): TROPONINI in the last 72 hours. Procalcitonin: No results found for: PROCAL COVID-19 PCR: No results for input(s): COVID19 in the last 72 hours. Objective: Vitals: BP 116/73 (BP Location: Right arm, Patient Position: Lying) Pulse 80 Temp 36.1 ?C (97 ?F) (Temporal) Resp 16 SpO2 96% Pulse Ox: SpO2 Av.3 % Min: 93 % Max: 97 % Supplemental O2: Physical Exam HENT: Head: Normocephalic and atraumatic. Mouth/Throat: Mouth: Mucous membranes are moist. Cardiovascular: Rate and Rhythm: Normal rate and regular rhythm. Pulmonary: Effort: Pulmonary effort is normal. Abdominal: Palpations: Abdomen is soft. Skin: General: Skin is warm and dry. Neurological: Mental Status: He is alert and oriented to person, place, and time. Psychiatric: Mood and Affect: Mood normal. NIH Stroke Scale: 1 Medications: Scheduled PRN amLODIPine, 5 mg, Oral, Daily apixaban, 5 mg, Oral, BID aspirin, 81 mg, Oral, Daily atorvastatin, 80 mg, Oral, Nightly busPIRone, 10 mg, Oral, TID dapagliflozin, 5 mg, Oral, Daily DULoxetine, 60 mg, Oral, Daily furosemide, 40 mg, Oral, BID glipiZIDE, 5 mg, Oral, qAM AC insulin regular, 20 Units, SubCUTAneous, TID WC levothyroxine, 112 mcg, Oral, qAM AC metoprolol succinate XL, 100 mg, Oral, Daily pantoprazole, 40 mg, Oral, qAM AC sodium chloride, 250 mL, IntraVENous, Once sodium chloride 0.9%, 5-40 mL, IntraVENous, q12h tamsulosin, 0.4 mg, Oral, Daily PRN medications: dextrose, dextrose, glucagon (rDNA), glucose, labetalol, sodium chloride, sodium chloride 0.9% Continuous sodium chloride, 50 mL/hr Assessment Data: (CAT1) Reviewed 3 or more notes from different specialty or health system (each=1). (CAT1) Reviewed 3 or more labs/studies ordered by another provider not previously counted (each=1, panels count as 1). (CAT1) Ordered 3 or more new labs and/or studies (each=1, panels count as 1). 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 Bilateral carotid artery stenosis right greater than left Intermittent atrial fibrillation currently in sinus rhythm. Stable chronic problems affecting care, new non-acute diagnoses: 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 Morbid obesity Hyperlipidemia Plan As a result of the above findings & factors, the following mgmt was pursued: -Vascular consultation, recommends ultrasound carotids -Neurology consultation -En (more content not included)...[facility]07-05-2024 Consult note * Karol Melissa MD - 10/04/2023 6:34 AM EDT Images from the original note were not included. Vascular Surgery Consultation Note Reason for Consult: Kinsey, REN? HISTORY OF PRESENT ILLNESS: The patient is a 58 y.o. male with past medial history of CKD, HTN DM, hypothyroid Obesity, BPH, who is admitted to the hospital for treatment of basilar stroke type symptoms as well as left sided facial and hand weakness. Was admitted to OSH noted imaging findings included basilar artery stenosis,V3 occlusion atherosclerosis of BL carotid arteries without significant stenosis MRI completed 10/01 showing numerous subcentimeter acute infarcts in the right cerebral hemisphere mainly in the cortex suggestive of an embolic source. (Unfortunately unable to see any imaging) Patient states a couple days before presentation he noted dizziness symptoms these worsened on the day of presentation to the outside facility he noted left facial weakness left arm weakness he did not have left leg weakness. Had never had symptoms like this before. He presented to the outside facility where he received some medication in the ambulance but unsure of what kind. States he had an ultrasound in the past year of his carotids but no intervention was performed at that time. He has nothad any recurrent stroke symptoms since the initial stroke symptoms. He takes aspirin and Eliquis daily he does have A-fib but in sinus on eval here he has been compliant with his medications. On exam AF, HDS on room air, labs pending IMPRESSION: Krunal Leos presents with stroke like symptoms, imaging done at OSH suggested possibility of carotid disease as well as concurrent vertebral and basilar disease RECOMMENDATIONS: - obtain carotid duplex - reconcile home meds patient on aspirin, statin and Eliquis as an outpatient most recent dose of Eliquis last night - follow up [facility] service evaluation - further plans to follow PMH: CKD, HTN DM, hypothyroid Obesity, BPH, Afib PSH: VATS for empyema, Percutaneous nephrostolithotomy Current Medications: sodium chloride, 50 mL/hr PRN medications: dextrose, dextrose, glucagon (rDNA), glucose, labetalol, sodium chloride, sodium chloride 0.9% amLODIPine, 5 mg, Oral, Daily apixaban, 5 mg, Oral, BID aspirin, 81 mg, Oral, Daily atorvastatin, 80 mg, Oral, Nightly busPIRone, 10 mg, Oral, TID dapagliflozin, 5 mg, Oral, Daily DULoxetine, 60 mg, Oral, Daily furosemide, 40 mg, Oral, BID glipiZIDE, 5 mg, Oral, qAM AC insulin regular, 20 Units, SubCUTAneous, TID WC levothyroxine, 112 mcg, Oral, qAM AC metoprolol succinate XL, 100 mg, Oral, Daily pantoprazole, 40 mg, Oral, qAM AC sodium chloride, 250 mL, IntraVENous, Once sodium chloride 0.9%, 5-40 mL, IntraVENous, q12h tamsulosin, 0.4 mg, Oral, Daily Allergies: Patient has no allergy information on record. Social History Socioeconomic History Marital status: Spouse name: Not on file Number of children: Not on file Years of education: Not on file Highest education level: Not on file Occupational History Not on file Tobacco Use Smoking status: Not on file Smokeless tobacco: Not on file Substance and Sexual Activity Alcohol use: Not on file Drug use: Not on file Sexual activity: Not on file Other Topics Concern Not on file Social History Narrative Not on file Social Determinants of Health Financial Resource Strain: Not on file Food Insecurity: Not on file Transportation Needs: Not on file Physical Activity: Not on file Stress: Not on file Social Connections: Not on file Intimate Partner Violence: Not on file Housing Stability: Not on file No family history on file. REVIEW OF SYSTEMS: The chart was reviewed. 11 point review of systems obtained, and negative unless otherwise mentioned in HPI LABS: No results found for: CREATININE No results found for: WBC, HGB, HCT, MCV, PLT No results found for: INR, PROTIME No results found for: VLDL PHYSICAL EXAM: Vitals: 10/04/23 0620 BP: 116/73 Pulse: 80 Resp: 16 Temp: 36.1 C (97 F) SpO2: 96% CONSTITUTIONAL: awake, alert, cooperative, no apparent distress NECK: Supple, symmetrical, trachea midline, no adenopathy LUNGS: No increased work of breathing, good air exchange CARDIOVASCULAR: Regular rate and rhythm ABDOMEN: Soft, non-distended CHEST: no obvious deformity GENITAL/URINARY: Not examined MUSCULOSKELETAL: There is no redness, warmth, or swelling of the joints. Full range of motion noted. NEUROLOGIC: Awake, alert, oriented to name, place and time. SKIN: normal skin color, texture, no redness, warmth, or swelling Artery Right Left Comments Femoral Pulse [x] Signal [] Pulse [x] Signal [] Popliteal Pulse [] Signal [] Pulse [] Signal [] Dorsalis Pedis Pulse [x] Signal [] Pulse [x] Signal [] Posterior Tibial Pulse [x] Signal [] Pulse [x] Signal [] Other: Carotid Pulse [x] Signal [] Pulse [x] Signal [] LABS: No results found for: WBC, HGB, HCT, PLT, PROTIME, INR, PTT, K, BUN, CREATININE VASCULAR TESTING: Completed at OSH . Associated attestation - Suzy Jauregui MD - 10/04/2023 7:50 PM EDT I saw and evaluated the patient. I agree with the findings and plan of care as documented in the resident s note unless otherwise noted below. CTA images reviewed in PACS as well as carotid duplex. Minimal cervical carotid stenosis, unlikely cause of stroke symptoms. Carotid duplex shows < 50% by velocity criteria on the right and 50-59%stenosis on the left. He endorses left arm weakness which prompted him to go the hospital. The patient notes his symptoms have resolved at this point. 5/5 strength in all extremities on physical exam. Recommend continued medical management. Will plan for 6 month repeat ultrasound for close follow up. This was discussed with the patient and he is agreeable to the plan. [id number] History and physical note* Michael Rico MD - 10/03/2023 9:26 PM EDT History Of Present Illness Krunal Leos is a 58 y.o. male presenting with dizziness over the past 3 years however became more severe and more frequent a few days ago was admitted to [facility] after he had left facial weakness left hand weakness and was diagnosed with a CVA. 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 Occlusion of the left vertebral artery at the level of the V3 extending beyond the [id number] with reconstitution. Atherosclerosis of the cavernous and supraclinoid segments of the bilateral carotid arteries without significant stenosis. MRI of the brain without contrast done on 10/02/2023 revealed numerous subcentimeter acute infarcts in the right cerebral hemisphere mainly in the cortex suggestive of an embolic source. The right facial droop and left upper extremity weakness did improve currently is being admitted for CVA/TIA as well as history of ocular stroke.. Past Medical History He has no past medical history on file. CVA/TIA Labile hypertension Type II months requiring diabetes Dyslipidemia BPH Hypothyroidism. GERD. Atrial fibrillation. EKG reveals LVH by voltage criteria frequent PACs, slight counterclockwise rotation, remote inferior myocardial infarction, otherwise no evidence of any acute changes. Surgical History He has no past surgical history on file. Social History He has no history on file for tobacco use, alcohol use, and drug use. Allergies Patient has no allergy information on record. Regular Medications No medications prior to admission. See above Morbid exogenous obesity BMI 47.09 Review of Systems As above noted Physical Exam Head was normal maxillary sinuses and periorbital sinuses appear to be clear no evidence of any rhinorrhea. The neck was supple there were carotid bruits bilaterally louder on the right than on the left. There is no submandibular paracervical or supraclavicular lymphadenopathies. Lungs reveal diminished breath sounds bilaterally otherwise clear there were no wheezes or rhonchi there were diminished breath sounds at both bases. Heart rhythm regular S1/S2 heart sounds are distant S4 noted. Abdomen protuberant benign and nontender with normal bowel sounds in all quadrants there is no subxiphoid, right midepigastric, or right upper quadrant tenderness to palpation lower abdominal examination was otherwise unremarkable. Range of motion of both upper and lower extremities appears to be symmetrical muscle strength bilaterally is +4/5 there are no lateralizing signs peripheral pulses were intact in both the upper and lower extremities bilaterally. The skin was otherwise warm and dry to touch there were no ecchymoses or petechial lesions noted in either the upper or the lower extremities. Last Recorded Vitals There were no vitals taken for this visit. Relevant Results Laboratory: White blood cell count 7.6 thousand hemoglobin 10.5 hematocrit 32.0 platelet count 211 white cell differential reveals 62% neutrophils. Glucose 158 sodium 138 potassium 4.5 BUN 25 creatinine 1.18. Assessment/Plan Active Problems: There are no active Hospital Problems. 1. 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 2. Bilateral carotid artery stenosis right greater than left 3. Hyperlipidemia 4. 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 insulin requiring 5. Labile hypertension 6. Morbid exogenous obesity. 7. Intermittent atrial fibrillation currently in sinus rhythm. Plan: 1. Vascular consultation 2. Neurology consultation 3. Continue to monitor glycemic status. [employer] Work Phone: [phone] NoteHistory Of Present Illness Krunal Leos is a 58 y.o. male presenting with dizziness over the past 3 years however became more severe and more frequent a few days ago was admitted to [facility] after he had left facial weakness left hand weakness and was diagnosed with a CVA. 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 Occlusion of the left vertebral artery at the level of the V3 extending beyond the [id number] with reconstitution. Atherosclerosis of the cavernous and supraclinoid segments of the bilateral carotid arteries without significant stenosis. MRI of the brain without contrast done on 10/02/2023 revealed numerous subcentimeter acute infarcts in the right cerebral hemisphere mainly in the cortex suggestive of an embolic source. The right facial droop and left upper extremity weakness did improve currently is being admitted for CVA/TIA as well as history of ocular stroke.. Past Medical History He has no past medical history on file. CVA/TIA Labile hypertension Type II months requiring diabetes Dyslipidemia BPH Hypothyroidism. GERD. Atrial fibrillation. EKG reveals LVH by voltage criteria frequent PACs, slight counterclockwise rotation, remote inferior myocardial infarction, otherwise no evidence of any acute changes. Surgical History He has no past surgical history on file. Social History He has no history on file for tobacco use, alcohol use, and drug use. Allergies Patient has no allergy information on record. Regular Medications No medications prior to admission. See above Morbid exogenous obesity BMI 47.09 Review of Systems As above noted Physical Exam Head was normal maxillary sinuses and periorbital sinuses appear to be clear no evidence of any rhinorrhea. The neck was supple there were carotid bruits bilaterally louder on the right than on the left. There is no submandibular paracervical or supraclavicular lymphadenopathies. Lungs reveal diminished breath sounds bilaterally otherwise clear there were no wheezes or rhonchi there were diminished breath sounds at both bases. Heart rhythm regular S1/S2 heart sounds are distant S4 noted. Abdomen protuberant benign and nontender with normal bowel sounds in all quadrants there is no subxiphoid, right midepigastric, or right upper quadrant tenderness to palpation lower abdominal examination was otherwise unremarkable. Range of motion of both upper and lower extremities appears to be symmetrical muscle strength bilaterally is +4/5 there are no lateralizing signs peripheral pulses were intact in both the upper and lower extremities bilaterally. The skin was otherwise warm and dry to touch there were no ecchymoses or petechial lesions noted in either the upper or the lower extremities. Last Recorded Vitals There were no vitals taken for this visit. Relevant Results Laboratory: White blood cell count 7.6 thousand hemoglobin 10.5 hematocrit 32.0 platelet count 211 white cell differential reveals 62% neutrophils. Glucose 158 sodium 138 potassium 4.5 BUN 25 creatinine 1.18. Assessment/Plan Active Problems: There are no active Hospital Problems. 1. 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 2. Bilateral carotid artery stenosis right greater than left 3. Hyperlipidemia 4. 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 insulin requiring 5. Labile hypertension 6. Morbid exogenous obesity. 7. Intermittent atrial fibrillation currently in sinus rhythm. Plan: 1. Vascular consultation 2. Neurology consultation 3. Continue to monitor glycemic status.[facility]07-04-2024 History and physical note* Michael Rico MD - 10/03/2023 9:26 PM EDT History Of Present Illness Krunal Leos is a 58 y.o. male presenting with dizziness over the past 3 years however became more severe and more frequent a few days ago was admitted to [facility] after he had left facial weakness left hand weakness and was diagnosed with a CVA. 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 Occlusion of the left vertebral artery at the level of the V3 extending beyond the [id number] with reconstitution. Atherosclerosis of the cavernous and supraclinoid segments of the bilateral carotid arteries without significant stenosis. MRI of the brain without contrast done on 10/02/2023 revealed numerous subcentimeter acute infarcts in the right cerebral hemisphere mainly in the cortex suggestive of an embolic source. The right facial droop and left upper extremity weakness did improve currently is being admitted for CVA/TIA as well as history of ocular stroke.. Past Medical History He has no past medical history on file. CVA/TIA Labile hypertension Type II months requiring diabetes Dyslipidemia BPH Hypothyroidism. GERD. Atrial fibrillation. EKG reveals LVH by voltage criteria frequent PACs, slight counterclockwise rotation, remote inferior myocardial infarction, otherwise no evidence of any acute changes. Surgical History He has no past surgical history on file. Social History He has no history on file for tobacco use, alcohol use, and drug use. Allergies Patient has no allergy information on record. Regular Medications No medications prior to admission. See above Morbid exogenous obesity BMI 47.09 Review of Systems As above noted Physical Exam Head was normal maxillary sinuses and periorbital sinuses appear to be clear no evidence of any rhinorrhea. The neck was supple there were carotid bruits bilaterally louder on the right than on the left. There is no submandibular paracervical or supraclavicular lymphadenopathies. Lungs reveal diminished breath sounds bilaterally otherwise clear there were no wheezes or rhonchi there were diminished breath sounds at both bases. Heart rhythm regular S1/S2 heart sounds are distant S4 noted. Abdomen protuberant benign and nontender with normal bowel sounds in all quadrants there is no subxiphoid, right midepigastric, or right upper quadrant tenderness to palpation lower abdominal examination was otherwise unremarkable. Range of motion of both upper and lower extremities appears to be symmetrical muscle strength bilaterally is +4/5 there are no lateralizing signs peripheral pulses were intact in both the upper and lower extremities bilaterally. The skin was otherwise warm and dry to touch there were no ecchymoses or petechial lesions noted in either the upper or the lower extremities. Last Recorded Vitals There were no vitals taken for this visit. Relevant Results Laboratory: White blood cell count 7.6 thousand hemoglobin 10.5 hematocrit 32.0 platelet count 211 white cell differential reveals 62% neutrophils. Glucose 158 sodium 138 potassium 4.5 BUN 25 creatinine 1.18. Assessment/Plan Active Problems: There are no active Hospital Problems. 1. 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 2. Bilateral carotid artery stenosis right greater than left 3. Hyperlipidemia 4. 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 insulin requiring 5. Labile hypertension 6. Morbid exogenous obesity. 7. Intermittent atrial fibrillation currently in sinus rhythm. Plan: 1. Vascular consultation 2. Neurology consultation 3. Continue to monitor glycemic status. documented in this [facility]07-04-2024 Nurse Note* Dalila Helms RN - 10/03/2023 7:30 PM EDT Pt arrived from [facility], ambulated to bed, NIH scale 1, pt A&O x 4, denies numbness ortingling, denies headache or dizziness, denies needs at this time, call light and belongings [facility], will monitor. [id number] Discharge Instructions Thank you for allowing [facility] to assist you with your healthcare needs. The following is importantdischarge information regarding your hospital visit. Your Care Team RADHA KHAN MD Your Diagnosis Afib Carotid artery stenosis CVA (cerebrovascular accident) Hyperlipidemia Hypertension Hypothyroidism 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 What to do next The Following Activity and Diet Have Been Ordered for You No qualifying data available. No qualifying data available. The Following Equipment Has Been Ordered for You No qualifying data available. The Following Treatments Have Been Ordered for You Discharge Labs No qualifying data available. Discharge Radiology No qualifying data available. Other Therapies No qualifying data available. Post Acute Orders No qualifying data available. Someone Will Contact You Regarding These Home Health Referrals No home referrals have been ordered for you. No one will call you. Allergies Reglan Medications Please ask your primary doctor or pharmacist before taking any other medication not listed, including over the counter drugs, herbal medications, vitamins and or supplements as they may interact withyour home medications. What How Much When Instructions Last Dose Changed insulin regular (Humulin R (CONCENTRATED) 500 units/ mL 20 mL VIAL*) INJECT 75 UNITS UNDER THE SKIN VIA CONTINUOUS INFUSION DAILY Unchanged acetaminophen-hydrocodone (acetaminophen-hydrocodone 325 mg-5 mg oral tablet) Take 1 tablet by mouth 2-3 times daily as needed for pain Unchanged amLODIPine (amLODIPine 5 mg oral tablet) TAKE 1 TABLET BY MOUTH EVERY DAY Unchanged apixaban (Eliquis 5 mg oral tablet) TAKE 1 TABLET BY MOUTH 2 TIMES A DAY Unchanged aspirin (aspirin 81 mg oral tablet, chewable) 1 tab(s) by mouth Every day Unchanged atorvastatin (Lipitor 80 mg oral tablet) 1 tab(s) by mouth Every day Unchanged busPIRone (busPIRone 10 mg oral tablet) TAKE 1 TABLET BY MOUTH 3 TIMES A DAY Unchanged DULoxetine (DULoxetine 60 mg oral delayed release capsule) TAKE 1 CAPSULE BY MOUTH EVERY DAY Unchanged empagliflozin (Jardiance 25 mg oral tablet) 1 tab(s) by mouth Once a day (in the morning) Unchanged furosemide (furosemide 40 mg oral tablet) TAKE 1 TABLET BY MOUTH 2 TIMES A DAY FOR DIURETIC Unchanged glimepiride (glimepiride 4 mg oral tablet) TAKE 1 TABLET BY MOUTH EVERY DAY Unchanged levothyroxine (levothyroxine 112 mcg (0.112 mg) oral tablet) TAKE 1 TABLET BY MOUTH EVERY DAY Unchanged metoprolol (Metoprolol Succinate ER 100 mg oral TABLET extended release) 1 tab(s) by mouth Once a day Unchanged Misc Medication (Dexcom G6 Sensor Mis) USE DIRECTED FOR CONTINUOUS BLOOD GLUCOSE MONITORING, CHANGE SENSOR EVERY 10 DAYS Unchanged pantoprazole (pantoprazole 40 mg oral enteric coated tablet) TAKE 1 TABLET BY MOUTH EVERY DAY Unchanged tamsulosin (tamsulosin 0.4 mg oral capsule) TAKE 1 CAPSULE BY MOUTH DAILY What When Comments Stop Taking spironolactone (spironolactone 50 mg oral tablet) TAKE 1 TABLET BY MOUTH EVERY DAY Please take this list to your next doctor s visit. Bring all medications you take, including over the counter medications, herbals and other supplements with you to your doctor s visit. Patients and families are reminded to discard old lists and to update any records with all medication providers or retail pharmacies. Additional Information VACCINATE! IT SAVES LIVES! Members of the community who have not yet received the COVID-19 vaccine and would like to receive it can visit one of [facility] vaccine clinics. There are many vaccine clinic locations within the [facility]. For locations and available times, please visit [email or web address] It is important to note that some COVID mobile vaccine clinics are held outdoors and may be canceled in rainy or stormy conditions. To learn more about pediatric vaccinations (ages 5-11), we invite you to visit the [facility] webpage. [email or web address] learn more about the COVID-19 vaccine, we invite you to visit the CDC website for a list of frequently asked questions.https://www.cdc.gov/coronavirus/2019-ncov/vaccines/faq.html [facility] Patient Portal Access Instructions: Stay connected with your healthcare team and access your personal medical information anytime with the [facility] Patient Portal. Please follow the directions below to create your [facility] account: 1.Access the email account you provided upon registration to the hospital/physician office.2.Look for an invitation email from [facility].3.Open the email and access the invitation link: AcceptInvitation to [facility].4.Fill in the required goldberg to create your account. To access your account, visit [email or web address]. Click the blue button labeled Access Patient Portal and then log in with the username and password that you created in the steps above. You will be able to view your test results, lab results, a summary of your visits, upcoming appointments and more. There is also a convenient messaging option where you can send secure messages to your p rovider. In addition, you will have the ability to download any documents or summaries to your computer and/or send the information securely to a physician. Remember that your healthcare information is confidential, so carefully consider who you will allowto register on the [facility] Patient Portal for access to your information. You can also access the [facility] Patient Portal on the [facility] collin. Simply click on Patient Portal and then log into your account. If you would like to receive a full copy of your medical records, please contact the [facility] Medical Records Department by calling [phone], Saturday through Saturday between 8 a.m. and 4:30 p.m. HOW TO SAFELY DISPOSE OF PRESCRIPTION MEDICATIONS Please use one of the following methods to safely dispose of your unused medications. 1.Use a drug disposal kit: the drug disposal pouch allows you to safely discard your old and unuseddrugs. Ask your nurse to give you one when you are discharged.2.Visit a local take-back location: Many local pharmacies and police departments have programs that collect old and unwanted prescriptiondrugs. Call your local pharmacy or go to http://Immedia.Sheology/0C5Ls3e to find one close to you.3.Make use of household items: Use cat litter or old coffee grounds to dispose medications if other options arenot available. Mix your drugs with these household products, seal them in an airtight container andthrow it into the garbage. Call [facility]: [phone] to be sure your drugs can be disposed of in this way. Some medicines may require a different approach.4.Never flush your medications down the toilet. IF YOU HAVE BEEN PRESCRIBED AN OPIOID FOR PAIN If you have been prescribed an opioid (such as hydrocodone, oxycodone or morphine), it is critical to understand the possible side effects and risks of opioid pain medications. Even when taken as directed, opioids can have several side effects including: Tolerance, meaning you might need to take more of a medication for the same pain relief. Nausea, vomiting and/or constipation. Sleepiness, dizziness, dry mouth, confusion, depression or itching. Physical dependence, meaning you have withdrawal symptoms when a medication is stopped, can develop within a few days. KNOW YOUR RESPONSIBILITIES It is important to know exactly how much and how often to take the opioid pain medications you are prescribed. Never take opioids in higher amounts or more often than prescribed. Do not combine opioids with alcohol or other drugs that cause drowsiness, such as benzodiazepines, also known as benzos, including diazepam and alprazolam, muscle relaxants or sleep aids. Never sell or share prescription opioids. This is illegal. Store opioids in a secure place and out of reach of others (including children, family, friends and visitors). The last page of this document has been signed and retained as a CHART COPY. Signatures Patient Education Materials Medication Leaflets My discharge plan and instructions have been reviewed and explained to me and I,KRUNAL LEOS understand my current condition and have read and understand these discharge instructions. I have receiveda written copy of the plan/instructions. If I have questions, I am aware that I should contact my do ctor. 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 Patient presented to [facility] emergency department on 10/01/2023 with increased weakness, right-sided facial droop and unable to move left upper extremity, speech difficulties that resolved by the time EMS arrived. Daughter was concerned that he did not look well. He has a history of left ocular stroke. Vital signs are stable in the emergency department. He had an SUPA with creatinine of 1.[address] head showed no acute abnormality. Patient was subsequently admitted for further evaluation. A1c was found to be 7.7, triglycerides 323 with an HDL of 37. MRI of the brain done that showed numerous subcentimeter acute infarcts in the right cerebral hemisphere, mainly in the cortex suggestiveof embolic source. Echocardiogram done showing LVEF of 55% and unable to assess diastolic function.No PFO. Patient was initiated on aspirin. He was already on high intensity statin. He was noted to be in normal sinus rhythm on the monitor. Patient was seen by , vascular surgeon on 07/03/2023 Due to acute CVA and carotid stenosis. Patient has high-grade stenosis of the right external carotid artery. There is seems to be focal areaof high-grade arterial flow within the distal left carotid artery with additional 50 to 69% stenosis of the left internal carotid artery. There is suggestion of slight progression of disease from hisprevious duplex. It was recommended that patient obtain a second opinion from Dr. Dobbs regarding risks and benefits of carotid endarterectomy and carotid artery stenting. Evaluation by Dr. Dobbs on 07/17/2023. He states that given appearance of plaque and location would have higher threshold for t reatment unless symptomatic (greater than 90% if symptomatic. At that point he recommended yearly surveillance. Objective Vitals and Measurements T: 36.8 C (Oral) TMIN: 36.4 C (Oral) TMAX: 36.8 C (Oral) HR: 80 (Monitored) RR: 18 BP: 112/66 SpO2:96% Intake and Output 7AM Yesterday to 7AM Today Intake and Output (Last 24 hours) Intake Output Stool Count 1.00 Urine Count 2.00 Total Summary Total Intake 0.00 Total Output 0.00 Fluid Balance 0.00 Physical Exam GEN: Appears chronically ill CHEST: Normal S1 and S2. Rhythm is regular. Clear to auscultation, without rales, rhonchi, wheezing. ABD: Positive bowel sounds x 4 quads. Soft, nondistended, nontender. EXT: No significant deformity or joint abnormality. No edema. Peripheral pulses intact. NEURO: Sensation grossly intact. NIH score 0. SKIN: Skin color normal PSYCH: The mental examination revealed the patient was alert and oriented x 4 Weight Dosing Weight: 144.7 kg (10/02/23) Medications Medications (21) Active Scheduled: (14) amLODIPine 5 mg tablet 5 mg 1 tab(s), Oral, qDay apixaban 5 mg tablet 5 mg 1 tab(s), Oral, BID aspirin 81 mg Chewable 81 mg 1 tab(s), Oral, Daily atorvastatin 40 mg tablet 80 mg 2 tab(s), Oral, Daily busPIRone 5 mg Tablet 10 mg 2 tab(s), Oral, TID duloxetine [address] capsule 60 mg 2 cap(s), Oral, qDay empagliflozin 25 mg tablet 25 mg 1 tab(s), Oral, qAM glimepiride 2 mg Tablet 4 mg 2 tab(s), Oral, qDay insulin lispro 100 units/mL Soln COA (3 mL) Give 0-5 units/dose, Subcutaneous, TIDAC insulin R 500units/mL Concentrated 75 unit(s) 0.15 mL, Subcutaneous (INT), qDay levothyroxine 112 mcg tablet 112 mcg 1 tab(s), Oral, qDay metoprolol succinate 50 mg ER tablet 100 mg 2 tab(s), Oral, qDay pantoprazole 20 mg EC tablet 40 mg 2 tab(s), Oral, qDay tamsulosin 0.4 mg Capsule 0.4 mg 1 cap(s), Oral, qDay Continuous: (1) Lactated Ringers 1,000 mL 1,000 mL, Intravenous, 75 mL/hr PRN: (6) acetaminophen 325 mg Tablet 650 mg 2 tab(s), Oral, q4h acetaminophen 325 mg Tablet 650 mg 2 tab(s), Oral, q4h acetaminophen-HYDROcodone 325-5 mg tablet 1 tab(s), Oral, q8h dextrose 50% Solution Disp syringe 50 mL 25 gram(s) 50 mL, IV Push, AsDirected melatonin 3 mg tablet 3 mg 1 tab(s), Oral, qHS ondansetron 2 mg/ 1 mL 2 mL INJ 4 mg 2 mL, IV Push, q4h Lab Results 10/02 05:58 WBC: 7.6 Hgb: 10.5 L Hct: 32.0 L Platelet: 211 Neutrophil %: 62.0 Glucose Level: 158 H Sodium Level: 138 Potassium Level: 4.5 BUN: 18 Creatinine Lvl (s): 1.05 10/01 05:00 WBC: 7.0 Hgb: 10.8 L Hct: 33.0 L Platelet: 220 Neutrophil %: 62.3 Glucose Level: 80 Sodium Level: 140 Potassium Level: 3.9 BUN: 25 H Creatinine Lvl (s): 1.18 Imaging Results and Diagnostics CT Angiography Head w/ Contrast Result Date: October 02, 2023 Verified By: CHRISTOPHER PELAEZ DO CLINICAL STATEMENT: IMPRESSION: Mild to moderate stenosis the basilar artery with patent origins of thesuperior cerebellar arteries, anterior inferior cerebellar arteries,posteroinferior cerebellar arteries. Occlusion of the left vertebral artery at the level of V3 extending beyondfield of view with reconstitution. Art hrosclerosis of the cavernous and supraclinoid segments of the bilateralcarotid arteries without significant stenosis. I have personally reviewed the images of this examination and agree with theresident's findings and interpretation. CT Angiography Neck w/ Contrast Result Date: October 02, 2023 Verified By: CHRISTOPHER PELAEZ DO CLINICAL STATEMENT: IMPRESSION: Complete occlusion of the left vertebral artery from the origin to the [id number]. Moderate stenosis of bilateral internal carotid arteries per NASCET criteria. Moderate stenosis of the left external carotid artery just distal to carotidbifurcation and severe stenosis of the right external carotid artery justdistal to the carotid bifurcation. I have personally reviewed the images of this examination and agree with theresident's findings and interpretation. MRI Brain w/o Contrast Result Date: October 02, 2023 Verified By: JULIUS MCCALL MD CLINICAL STATEMENT: IMPRESSION: Numerous subcentimeter acute infarcts in the right cerebral hemisphere,mainly in the cortex, suggestive of an embolic source. CT Head or Brain w/o Contrast Result Date: October 01, 2023 Verified By: CHRISTOPHER PELAEZ DO CLINICAL STATEMENT: IMPRESSION: XR Chest 1 View Result Date: October 01, 2023 Verified By: Patti_ELAN caban CLINICAL STATEMENT: IMPRESSION: Left lower lobe atelectasis versus infiltrate. Assessment/Plan 1. CVA (cerebrovascular accident) 2. Carotid artery stenosis 3. Afib 4. Hypertension 5. 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 CVA- MRI of the brain done that showed numerous subcentimeter acute infarcts in the right cerebral hemisphere, mainly in the cortex suggestive of embolic source. Echocardiogram done showing LVEF of 55% and unable to assess diastolic function. No PFO. Continue ASA and atorvastatin. Carotid artery stenosis-Patients spoke with Dr. Dobbs, vascular surgeon, who recommended transfer to [facility] for vascular surgery evaluation. [facility] transfer line called. Imaging reports faxed. Given that patient is symptomatic, Dr. Rincon progress note indicates he would likely perform endarterectomy or stents. CTA Head and neck shows complete occlusion of the left vertebral artery from the origin to the V3 segment. Moderate stenosis of bilateral internal carotid arteries. Moderate stenosis of the left external carotid artery just distal to carotid bifurcation and severe stenosis of the right external carotid artery just distal to the carotid bifurcation. Mild to moderate stenosis the basilar artery with patent origins of the superior cerebellar arteries, anterior inferior cerebellar arteries, posteroinferior cerebellar arteries. Arthrosclerosis of the cavernous and supraclinoid segments of the bilateral carotid arteries without significant stenosis. Afib-He is in NSR. Continue metoprolol and apixiban HTN- SBP goal 140 or less. Continue home antihypertensives. 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- Glucose goal 180 or less and avoid hypoglycemia. Corrective sliding scaleinsulin. ADA diet. DVT prophylaxis:apixiban Code Status:Full Code Plan of care discussed with patient. All questions answered. Patient verbalizes understanding is agreeable to plan of care. This dictation was performed using voice recognition software and may include grammatical and/or spelling errors. Time Spent 53 minutes Digitally Signed by DOMINIC FLEMING on 10/03/2023 04:22 PM [facility]07-03-2024 Note ORIGINAL EXAMINATION: CTA OF THE HEAD WITH CONTRAST10/02/2023 3:32 pm TECHNIQUE: CTA of the head/brain was performed with the administration of intravenous contrast. Multiplanar reformatted images are provided for review. MIP images are provided for review. Automated exposure control, iterative reconstruction, and/or weight based adjustment of the mA/kV was utilized to reduce the radiation dose to as low as reasonably achievable. COMPARISON: 03/18/2019 ultrasound, 10/02/2023 CTA neck, 10/02/2023 MRI brain HISTORY: ORDERING SYSTEM PROVIDED HISTORY: Reason for Exam: confirmed embolic stroke FINDINGS: The petrous, cavernous, and supraclinoid segments of bilateral internal carotid arteries demonstrate stenosis. Arthrosclerosis the cavernous and supraclinoid segments of the bilateral carotid arteries. The ophthalmic artery origins are visualized and normal. The anterior and middle cerebral arteries are patent bilaterally. The anterior communicating artery is patent. Posterior communicating arteries patent. 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 Occlusion of the left vertebral artery at the level of V3 extending beyond the field of view in with reconstitution of the left V4 segment with contrasted blood. For additional description of vertebral arteries refer to CTA neck of the same day. Patent appearance to the origin of the basilar and superior cerebellar arteries, anterior inferior cerebellar arteries, and posteroinferior cerebellar arteries. No saccular aneurysm is demonstrated. On this study is optimized for arterial evaluation the dural venous sinuses demonstrate no evidence of thrombosis. 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 Occlusion of the left vertebral artery at the level of V3 extending beyond field of view with reconstitution. Arthrosclerosis of the cavernous and supraclinoid segments of the bilateral carotid arteries without significant stenosis. I have personally reviewed the images of this examination and agree with the resident's findings and interpretation. Interpreted by: Christopher Pelaez DO Preliminary Report By: Alfonso Lorenzo Electronically signed By Christopher Pelaez DO Dictated Date: 10/02/2023 4:27:28 PM Prelim Date: 10/03/2023 10:41:49 AM Sign Date: 10/03/2023 10:41:49 AM Ordering Provider: [facility]07-03-2024 Note ORIGINAL EXAMINATION: CTA OF THE NECK10/02/2023 3:31 pm TECHNIQUE: CTA of the neck was performed with the administration of intravenous contrast. Multiplanar reformatted images are provided for review. MIP images are provided for review. Stenosis of the internal carotid arteries measured using NASCET criteria. Automated exposure control, iterative reconstruction, and/or weight based adjustment of the mA/kV was utilized to reduce the radiation dose to as low as reasonably achievable. COMPARISON: 10/01/2023 CT head HISTORY: ORDERING SYSTEM PROVIDED HISTORY: Reason for Exam: embolic stroke FINDINGS: Significant calcified arthrosclerosis of the carotid arteries. Approximately 61% stenosis of the right internal carotid artery just distal to the carotid bifurcation and approximately 65% stenosis of the left carotid artery just distal to the carotid bifurcation. Just distal to the carotid bifurcation bilaterally, moderate stenosis of the left external carotid artery, and severe stenosis of the right external carotid artery. Total occlusion of the left vertebral artery from the origin to the V3 segment with retrograde reconstitution of contrasted blood. Arteriosclerosis of the aortic arch with sclerosis but no stenosis of the origins of the innominate, bilateral common carotid arteries, bilateral subclavian arteries, and right vertebral artery. There is no evidence of arterial dissection, occlusion, extravasation of contrast material, arteriovenous fistula, or pseudoaneurysm. 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 Moderate stenosis of bilateral internal carotid arteries per NASCET criteria. Moderate stenosis of the left external carotid artery just distal to carotid bifurcation and severe stenosis of the right external carotid artery just distal to the carotid bifurcation. I have personally reviewed the images of this examination and agree with the resident's findings and interpretation. Interpreted by: Christopher Pelaez DO Preliminary Report By: Alfonso Lorenzo Electronically signed By Christopher Pelaez DO Dictated Date: 10/02/2023 4:04:40 PM Prelim Date: 10/03/2023 10:41:06 AM Sign Date: 10/03/2023 10:41:06 AM [facility]* Exam Date Time Procedure Performing Provider Status 10/02/23 2:41 PM Echocardiogram, Adul t with Bubble Study- Auth (Verified) [facility] 07-03-2024 Nurse Progress note ABDULLAHI AGUIRRE APRN, CNP CONSULTED STEM FOR NEURO CONSULT 1319. ER REGISTRATION NOTIFIED. Digitally Signed by Nelly Marsh RN on 10/02/2023 01:28 PM [facility]07-03-2024 Evaluation + Plan noteExtracted from: Title:History and Physical Author:ABDULLAHI AGUIRRE APRN-NAV Date:10/02/23 1. CVA (cerebrovascular acci dent) Acute, new onset, right cerebral hemisphere suggestive of embolic source noted on MRI. NIH 1. Echocardiogram with bubble study pending. Continue aspirin 81 mg PO daily. Continue lipitor 80 mg PO daily. Consult placed to PT and OT to evaluate and treat. Repeat CBC and BMP in the am. 2. Afib Chronic, paroxysmal. Continue eliquis and metoprolol at current dose. Monitor on telemetry. Currently in sinus rhythm on tele. 3. 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 Chronic. HgbA1c 7.7%. Blood sugar checks before meals and at bedtime. Cover with corrective sliding scale insulin. ADA diet. Blood sugar goal of 180 or less and avoid hypoglycemia. 4. Hypertension Chronic. Continue current antihypertensives. SBP goal of 140 or less. 5. Hyperlipidemia Chronic, uncontrolled. Continue lipitor 80 mg PO daily. Triglyerides elevated 323, HDL low 37. 6. Hypothyroidism Chronic, controlled. TSH and free T4 within normal limits. Continue levothyroxine at current dose. DVT prophylaxis with eliquis. Code status: Full Code. Labs, diagnostic test and progress notes reviewed as noted in HPI. Plan of care discussed with patient. All questions answered. Patient verbalizes understanding and is agreeable with plan of care. This case was discussed with collaborating physician, Dr. Derrek Cole. 75 minutes spent reviewing past diagnostic tests, reviewing lab results, vital sign trends, medical history, reviewing medications and ordering home medications, examining patient, discussed plan of care with care team, collaborating with physician, and documenting in chart. [facility] 07-03-2024 Nurse Progress note ABDULLAHI AGUIRRE APRN, CNP CONSULTED STEM FOR NEURO CONSULT 1319. ER REGISTRATION NOTIFIED. Digitally Signed by Nelly Marsh RN on 10/02/2023 01:28 PM [facility]07-03-2024 Note Date of Service 10/02/2023 Chief Complaint states was at parade, felt maybe a little weak, siad that his daughter told him he looked like he didint feel good so they took him to the car and they called 911- hx of TIA and AFIB History of Present Illness Patient is a 58-year-old male, who follows with Dr. Radha Khan with a past medical history significant for paroxysmal atrial fibrillation, hypertension, hyperlipidemia, type 2 diabetes and hypothyroidism, presented to [facility] emergency department with the chief complaint of weakness and possible right facial droop. Patient states that he was at the parade yesterday and suddenlyfelt a little weak in his left arm. His daughter asked him if he was ok and he stated that he did not feel very good. Daughter thought she saw a right facial droop in patient. He was brought to the ED via EMS. Patient denies feeling unwell prior to this incident, although, states he has had intermittent double vision the last few days. He states the double vision happens quickly and resolves quickly but then returns later. His weakness and right facial droop resolved while in the ED. He does have history of a prior CVA. Patient denies any fever, chills, cough, shortness of breath, chest pain,abdominal pain, nausea or dysuria. In the emergency department, chest x-ray revealed left lower lobe atelectasis vs infiltrate. CT of the head revealed no acute abnormality. MRI of the brain revealed numerous subcentimeter acute infarcts in the right cerebral hemisphere, mainly in the cortex, suggestive of an embolic source. EKG revealed sinus rhythm. CBC unremarkable. BMP significant for glucose 151, BUN 30 and creatinine 1.48. Troponin negative. No medications were administered in the ED. The case was discussed with the ED physician who recommended admission for further TIA workup and treatment of mild dehydration. Patient was transferred to telemetry for observation. We will send patient for echocardiogram with bubble study in the am. Consult placed to PT and OT to evaluate and treat. Check lipid profile, HgbA1c and TSHin the am. Repeat CBC and BMP in the am. Patient seen and evaluated this morning while resting in bed. He states that he is feeling much better this morning and denies any left arm weakness. He may have a slight facial droop on the left. Patient updated that his MRI resulted already and was positive for multiple small infarcts on the right side suggestive of an embolic stroke. He states that he is on eliquis for paroxysmal atrial fibrillation and has been taking it as prescribed. He denies any recent episode of his heart racing. Therapy just saw patient and did not feel that he had any needs unless he wants outpatient PT and OT. He will have an echo this morning yet. Patient may benefit from a HARRIET but will await the results of his echo. NIH 1. All questions answered. Review of Systems Review of Systems: Reviewed in detail, including general health, HEENT, cardiovascular, respiratory, gastrointestinal, genitourinary, endocrine, musculoskeletal, neurologic, vascular, skin, and psychiatric. All are negative except for those listed in the History of Present Illness. Physical Exam Vitals and Measurements T: 36.4 C (Oral) TMIN: 36.4 C (Oral) TMAX: 36.8 C (Oral) HR: 76 (Apical) RR: 16 BP: 131/82 SpO2: 98% HT: 175.3 cm WT: 144.7 kg BMI: 47.09 Weight Dosing Weight: 144.7 kg (10/02/23) General: No acute distress. Patient is alert and appropriate. Skin: No rash. Skin is warm, dry and intact. HEENT: Head is normocephalic, atraumatic. Pupils are equal, round and reactive. Neck: Supple. No lymphadenopathy, thyromegaly. Lungs: Bilaterally clear but diminished without crepitation or wheeze. Unlabored. Heart: Heart is regular rhythm, S1, S2. No murmurs, gallops or rubs. Abdomen: Abdomen is soft, nontender, obese. Bowels sounds present in all quadrants. Extremities: No clubbing, cyanosis, or edema. Peripheral pulses palpable. No calf tenderness. Neurological: Patient is awake and alert to person, place and time. Following simple commands, moving all extremities. Mild left facial droop noted. Lab Results 10/01 05:00 Glucose Level: 80 Sodium Level: 140 Potassium Level: 3.9 BUN: 25 H Creatinine Lvl (s): 1.18 09/30 20:33 WBC: 10.6 Hgb: 11.0 L Hct: 33.8 L Platelet: 250 Neutrophil %: 61.6 Glucose Level: 151 H Sodium Level: 138 Potassium Level: 4.0 BUN: 30 H Creatinine Lvl (s): 1.48 H Imaging Results and Diagnostics MRI Brain w/o Contrast Result Date: October 02, 2023 Verified By: JULIUS MCCALL MD CLINICAL STATEMENT: IMPRESSION: Numerous subcentimeter acute infarcts in the right cerebral hemisphere,mainly in the cortex, suggestive of an embolic source. CT Head or Brain w/o Contrast Result Date: October 01, 2023 Verified By: AIDAN WESTBROOK MD CLINICAL STATEMENT: IMPRESSION: No acute intracranial abnormality. I have personally reviewed the images of this examination and agree with the resident's findings and interpretation. XR Chest 1 View Result Date: October 01, 2023 Verified By: Contributor_systemELAN CLINICAL STATEMENT: IMPRESSION: Left lower lobe atelectasis versus infiltrate. Assessment/Plan 1. CVA (cerebrovascular accident) Acute, new onset, right cerebral hemisphere suggestive of embolic source noted on MRI. NIH 1. Echocardiogram with bubble study pending. Continue aspirin 81 mg PO daily. Continue lipitor 80 mg PO daily. Consult placed to PT and OT to evaluate and treat. Repeat CBC and BMP in the am. 2. Afib Chronic, paroxysmal. Continue eliquis and metoprolol at current dose. Monitor on telemetry. Currently in sinus rhythm on tele. 3. 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 Chronic. HgbA1c 7.7%. Blood sugar checks before meals and at bedtime. Cover with corrective slidingscale insulin. ADA diet. Blood sugar goal of 180 or less and avoid hypoglycemia. 4. Hypertension Chronic. Continue current antihypertensives. SBP goal of 140 or less. 5. Hyperlipidemia Chronic, uncontrolled. Continue lipitor 80 mg PO daily. Triglyerides elevated 323, HDL low 37. 6. Hypothyroidism Chronic, controlled. TSH and free T4 within normal limits. Continue levothyroxine at current dose. DVT prophylaxis with eliquis. Code status: Full Code. Labs, diagnostic test and progress notes reviewed as noted in HPI. Plan of care discussed with patient. All questions answered. Patient verbalizes understanding and is agreeable with plan of care. This case was discussed with collaborating physician, Dr. Derrek Cole. 75 minutes spent reviewing past diagnostic tests, reviewing lab results, vital sign trends, medicalhistory, reviewing medications and ordering home medications, examining patient, discussed plan of care with care team, collaborating with physician, and documenting in chart. Procedure/Surgical History No qualifying data available. Medications Home Medications (17) Active acetaminophen-hydrocodone 325 mg-5 mg oral tablet amLODIPine 5 mg oral tablet aspirin 81 mg oral tablet, chewable 81 mg = 1 tab(s), Oral, Daily busPIRone 10 mg oral tablet Dexcom G6 Sensor Mis DULoxetine 60 mg oral delayed release capsule Eliquis 5 mg oral tablet furosemide 40 mg oral tablet glimepiride 4 mg oral tablet Humulin R (CONCENTRATED) 500 units/mL 20 mL VIAL* Jardiance 25 mg oral tablet 25 mg = 1 tab(s), Oral, qAM levothyroxine 112 mcg (0.112 mg) oral tablet Lipitor 80 mg oral tablet 80 mg = 1 tab(s), Oral, Daily Metoprolol Succinate ER 100 mg oral TABLET extended release 100 mg = 1 tab(s), Oral, qDay pantoprazole 40 mg oral enteric coated tablet spironolactone 50 mg oral tablet tamsulosin 0.4 mg oral capsule Allergies Reglan Social History Alcohol Use: Never., 10/02/2023 Home/Environment Living situation: Home/Independent. Domestic Concerns: None., 10/02/2023 Nutrition/Health Type of diet: Diabetic. Appetite Good., 10/02/2023 Substance Abuse Use: Never., 10/02/2023 Tobacco Nicotine Use: Never (less than 100 in lifetime)., 10/02/2023 Family History Alcohol abuse: Brother. Diabetes: Father. Heart disease: Brother. Stroke: Mother. Health Status Family Member(s) Immunizations pneumococcal 23-valent vaccine(Pneumovax: 0 unknown unit (12/06/14) SARS-CoV-2 (COVID-19) mRNA-1273 vaccine: 0.5 unknown unit (07/08/20) SARS-CoV-2 (COVID-19) mRNA-1273 vaccine: 0.5 unknown unit (06/10/20) tetanus/diphth/pertuss (Tdap) adult/adol: 0 unknown unit (07/19/14) zoster vaccine, inactivated: 0.5 unknown unit (02/01/22) zoster vaccine, inactivated: 0.5 unknown unit (01/16/21) Code Status Code Status - Ordered -- 10/02/23 0:07:00 EDT, Full Code, Constant Order Digitally Signed by ABDULLAHI AGUIRRE on 10/02/2023 12:50 PM [facility]07-03-2024 Note ORIGINAL HISTORY: TIA COMPARISON: Head CT previous day TECHNIQUE: 1. Sagittal T1-weighted images. 2. Axial T2-weighted and T2*-weighted images. 3. Axial FLAIR images. 4. Axial diffusion-weighted images with ADC map. FINDINGS: There are numerous punctate foci of restricted diffusion in the right cerebral hemisphere, most prominently the frontal and occipital lobes, most involving cortex. There is mild T2 hyperintensity associated with the larger lesions. The ventricles and sulci are normal to mildly enlarged. There are no abnormal intra or extra-axial fluid collections. The orbital contents are normal in appearance. The paranasal sinuses are clear. 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 Interpreted by: Julius Mccall MD Preliminary Report By: Julius Mccall MD Electronically signed By Julius Mccall MD Dictated Date: 10/02/2023 8:32:47 AM Prelim Date: 10/02/2023 8:38:30 AM Sign Date: 10/02/2023 8:38:30 AM Ordering Provider[facility] Note ADDENDUM ADDENDUM: I agree with the resident's findings and interpretation. Interpreted by: Christopher Pelaez DO Preliminary Report By: Christopher Pelaez DO Electronically signed By Christopher Pelaez DO Dictated Date: 10/03/2023 10:39:09 AM Prelim Date: 10/01/2023 11:42:21 PM Sign Date: 10/03/2023 10:39:48 AM Ordering Provider: TITA PARISH ORIGINAL EXAMINATION: CT OF THE HEAD WITHOUT CONTRAST 10/01/2023 11:23 pm TECHNIQUE: CT of the head was performed without the administration of intravenous contrast. Automated exposure control, iterative reconstruction, and/or weight based adjustment of the mA/kV was utilized to reduce the radiation dose to as low as reasonably achievable. COMPARISON: None. HISTORY: ORDERING SYSTEM PROVIDED HISTORY: Reason for Exam: facial droop arm weakness - now resolved FINDINGS: BRAIN/VENTRICLES: No evidence of acute intracranial hemorrhage, midline shift, or mass effect. Carvalho-white differentiation is well maintained without evidence of acute infarction. No intra-axial mass or extra-axial fluid collection. The ventricular system and basal cisterns are patent. Proportionate enlargement of the ventricles and sulci is compatible with mild volume loss. Small foci of hypoattenuation throughout the supratentorial white matter are nonspecific but most likely sequela of mild chronic microvascular angiopathy. Carotid siphon and vertebral artery calcifications. ORBITS: No acute orbital abnormality. SINUSES: The visible paranasal sinuses and mastoid air cells are essentially clear. SOFT TISSUE/SKULL: No acute abnormality of the visualized skull or soft tissues. IMPRESSION: No acute intracranial abnormality. I have personally reviewed the images of this examination and agree with the resident's findings and interpretation. Interpreted by: Aidan Westbrook Preliminary Report By: Calvin Patel Electronically signed By Aidan Westbrook Dictated Date: 10/01/2023 11:38:06 PM Prelim Date: 10/01/2023 11:42:21 PM Sign Date: 10/01/2023 11:46:49 PM Ordering Provider: [place] [id number] Note ORIGINAL EXAMINATION: ONE XRAY VIEW OF THE CHEST10/01/2023 8:53 pm CHEST ONE VIEW AP/PA EXAM DESCRIPTION: COMPARISON: None available HISTORY: ORDERING SYSTEM PROVIDED HISTORY: Reason for Exam: Weakness. Hx of Afib. Patient is wearing a Holter monitor. weakness FINDINGS: Single AP radiograph of the chest was obtained. Interstitial opacities left lower lobe. The remaining lungs are clear without evidence of focal consolidation, mass, pleural effusion, or pneumothorax. The cardiomediastinal silhouette is unremarkable. The bones and soft tissues are unremarkable. IMPRESSION: Left lower lobe atelectasis versus infiltrate. Interpreted by: Eduin Payne MD Preliminary Report By: Eduin Payne MD Electronically signed By Eduin Payne MD Dictated Date: 10/01/2023 9:13:27 PM Prelim Date: 10/01/2023 9:13:56 PM Sign Date: 10/01/2023 9:13:56 PM [facility] Sinus rhythm Atrial premature complexes Left ventricular hypertrophy Inferior infarct, old EKG interpretation is noted and agreed to in [facility]. The interpretation of this patient's EKG contributed directly to the care and management of this patient. Electronic Signature: TITA PARISH DO 10/01/2023 20:51:[address] [place] [address] 12-15-2023 Procedure [facility] 02-18-2023 Procedure [facility]05-05-[address] Ospina [facility] August 03, 2022 10:12am Note Date/Time August 03, 2022 10:12a m [facility] Medical Records Department [address] [place] [address] Discharge Summary 08/03/22 1011 MR#: [id number] Acct: [id number] Name: KRUNAL LEOS Rep #:[id number] : 1965 56 From: Eduin Ospina MD PCP: Dr. Radha Khan MD Status:ADM TALIB Location: [place] [address] Providers Date of Admission: 08/01/22 Date of Discharge: 08/03/22 Primary Care Physician: Dr. Radha Khan MD Reason For Visit: VERTIGO ? POSTERIOR CVA Diagnosis Discharge Diagnosis (1) Vertigo: Status: Acute Code(s): R42 - Dizziness and giddiness Plan Patient is a 56-year-old male admitted with recurrent vertigo 1. Recurrent vertigo ? Patient admitted to monitored bed plan is for patient to undergo further evaluation with an MRI -08/03/2022 MRI obtained the day prior did not demonstrate acute CVA. Patient vertigo most likely secondary to BPPV. Was seen and evaluated by physical therapy patient will continue with outpatient vestibular therapy 2. Chronic diastolic congestive heart failure ? Currently stable 3. Paroxysmal atrial fibrillation ? Rate controlled on apixaban 4. Hypertension - Blood pressure controlled, home medications continued with dose adjustment as needed 5. Dyslipidemia -Patient is on statin therapy, continued at home dose 6. Hypothyroidism - Patient is on levothyroxine home dose continued 7. Depression with anxiety ? Did continue home meds 8. Class III obesity with BMI of 45.8 ? Weight loss advised 9. Obstructive sleep apnea ? Patient is on BiPAP at night 10. Hodgkin's lymphoma ? Currently in remission 11. DVT prophylaxis - On enoxaparin Time spent in the patient's overall evaluation,decision-making process, review of diagnostic data, adjustment of management, discussion with other providers, nursing nursing and ancillary staff involved in patient's care documentation, 40 Minutes Medications at Discharge Home Medications levothyroxine 125 mcg tablet 125 mcg PO DAILY thyroid 05/03/15 pantoprazole 40 mg tablet,delayed release (Protonix) 40 mg PO DAILY acid reflux 05/03/15 tamsulosin 0.4 mg capsule 0.4 mg PO DAILY prostate 09/08/15 buspirone 10 mg tablet 10 mg PO TID PRN PRN Anxiety 04/17/18 duloxetine 60 mg capsule,delayed release (Cymbalta) 60 mg PO DAILY depression 04/17/18 aspirin 81 mg chewable tablet 81 mg PO DAILY@0800 03/30/20 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 meter,continuous (Dexcom G6 Dietetics Teacher) #1 ea 07/26/20 pen needle, diabetic 31 gauge x 5/16 #1,200 ea 12/22/20 pen needle, diabetic 32 gauge x 5/32 (BD Ultra-Fine Kiki Pen Needle) #150 ea 06/01/21 atorvastatin 80 mg tablet (Lipitor) 80 mg PO QHS cholesterol 09/04/21 metoprolol succinate 100 mg tablet,extended release 24 hr 100 mg PO DAILY #90 tabs 12/08/21 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 sensor (Omnilink Systems G6 Sensor device) #3 ea 12/29/21 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 transmitter (Dexcom G6 Transmitter device) #1 ea 12/29/21 amlodipine 10 mg tablet 10 mg PO DAILY #30 tabs 01/25/22 glimepiride 4 mg tablet (Amaryl) 4 mg PO BID #180 tabs 03/12/22 spironolactone 50 mg tablet 50 mg PO DAILY #90 tabs 05/21/22 apixaban 5 mg tablet (Eliquis) 5 mg PO BID #180 tabs 05/22/22 furosemide 40 mg tablet (Lasix) 40 mg PO BID diuretic 08/01/22 insulin glargine U-300 conc 300 unit/mL (1.5 mL) subcutaneous pen (Toujeo SoloStar U-300 Insulin) 55 unit subcut DAILY diabetes 08/01/22 insulin lispro 100 unit/mL subcutaneous pen (Humalog KwikPen (U-100) Insulin) 25unit subcut TIDCM diabetes 08/01/22 lisinopril 40 mg tablet 40 mg PO BID blood pressure 08/01/22 Hospital Course Summary of Care Provided Minutes Spent on Discharge: 40 Physical Exam Narrative GENERAL: cooperative HEENT: Atraumatic; normocephalic EYES; Anicteric, Normal Conjunctiva NECK; supple, normal thyroid, RESPIRATORY: Diminished to auscultation CARDIOVASCULAR: Regular S1 S2, GI: soft, normoactive bowel sounds, : No Renal angle tenderness; EXTREMITIES: No edema, no clubbing, MUSCULOSKELETAL: no muscle wasting NEURO: Awake; no lateralizing signs. SKIN: No Rash PSYCH; Flat affect Weight / BMI Weight Weight: 139.6 kg Body Mass Index (BMI) 45.4 ABG / Lab / Microbiology Data Result Diagrams: 08/02/22 05:25 08/02/22 05:25 Laboratory: Laboratory Results - last 24 hr 08/02/22 11:12: POC Glucose 210 H 08/02/22 16:23: POC Glucose 225 H 08/02/22 22:14: POC Glucose 223 H 08/03/22 08:06: POC Glucose 297 H Radiography Diagnostic Testing: Radiology Impression Brain MRI 08/02/22 00:31 IMPRESSION: 1. No intracranial mass, hemorrhage, or acute territorial infarct. 2. No radiographically significant sinus disease. Electronically Signed: Clint Otto MD at 20:10 EDT , Echocardiogram 08/02/22 00:31 Interpretation Summary Technically difficult study. Mild concentric left ventricular hypertrophy. The left ventricular ejection fraction is 60 %. The left atrium is moderately enlarged. Ordering Physician: Cookie Bell Referring Physician: Radha Khan Performed By: Bijal Faust, DIANA, RVT D/C Instructions Discharge Activity: Return to Normal Activity Call your doctor if you observe: Fever of 101 or Higher, Shortness of breath, Fainting spells and Chest pain Meaningful Use Info Meaningful Use Diagnoses (Choose all that apply): None applicable Discharge Plan Admission Admit Date/Time: 08/01/22 23:11 Attending Provider: Eduin Ospina Primary Care Provider: Radha Khan Consulting Providers: Cookie Bell Discharge Orders/Prescriptions Prescriptions: Continued (DME) Dexcom G6 Dietetics Teacher Misc See Rx Instructions .ROUTE .MEDSUPPLY Qty: 1 0RF Rx Instructions: As directed (DME) pen needle, diabetic 31 gauge x 5/16 needle See Rx Instructions .ROUTE .MEDSUPPLY Qty: 1200 Label Comments: use 1 PEN NEEDLE to inject MEDICATION subcutaneously as directed Rx Instructions: As directed (DME) pen needle, diabetic [BD Ultra-Fine Kiki Pen Needle] 32 gauge x 5/32 needle See Rx Instructions .ROUTE .MEDSUPPLY Qty: 150 6RF Rx Instructions: As directed spironolactone 50 mg tablet 50 mg PO DAILY Qty: 90 3RF pantoprazole [Protonix] 40 MG tablet 40 mg PO DAILY levothyroxine 125 MCG tablet 125 mcg PO DAILY tamsulosin 0.4 MG capsule 0.4 mg PO DAILY buspirone 10 MG tablet 10 mg PO TID PRN PRN (Reason: Anxiety) Label Comments: TAKE ONE TABLET BY MOUTH THREE TIMES DAILY Rx Instructions: pt states he usually takes 1 daily duloxetine [Cymbalta] 60 MG capsule,delayed release(DR/EC) 60 mg PO DAILY Label Comments: TAKE ONE CAPSULE BY MOUTH DAILY aspirin 81 MG tablet,chewable 81 mg PO DAILY@0800 0RF atorvastatin [Lipitor] 80 MG tablet 80 mg PO QHS Rx Instructions: cholesterol furosemide [Lasix] 40 mg tablet 40 mg PO BID lisinopril 40 mg tablet 40 mg PO BID Rx Instructions: blood pressure insulin lispro [Humalog KwikPen Insulin] 100 unit/mL insulin pen 25 unit subcut TIDCM Vania ReesoStar U-300 Insulin 300 unit/mL (1.5 mL) insulin pen 55 unit SUBCUT DAILY metoprolol succinate 100 mg tablet extended release 24 hr 100 mg PO DAILY Qty: 90 3RF (DME) Dexcom G6 Sensor Device See Rx Instructions .ROUTE .MEDSUPPLY Qty: 3 6RF Rx Instructions: As directed (DME) Dexcom G6 Transmitter Device See Rx Instructions .ROUTE .MEDSUPPLY Qty: 1 3RF Rx Instructions: As directed amlodipine 10 mg tablet 10 mg PO DAILY Qty: 30 11RF glimepiride [Amaryl] 4 mg tablet 4 mg PO BID Qty: 180 1RF Eliquis 5 mg tablet 5 mg PO BID Qty: 180 3RF Other Ambulatory Orders: Occupational Therapy Eval (Routine) Location: None Selected Ordered By: Dr. Eduin Ospina Physical Therapy Evaluation (Routine) Location: None Selected Ordered By: Dr. Eduin Ospina Referrals / Follow Up: Radha Khan MD [Primary Care Provider] - Within 1 Week Disposition Disposition (needs filled in before D/C Order can be placed): Home, Self Care Charges/Coding Visit Charges Inpatient E&M: 22723 Disch Hosp >30min 08/03/22 1012 <Electronically signed by Eduin Ospina MD> Cosigner Signature (if applicable): CC: Dr. Radha Khan MD; Dr. Eduin Ospina MD~ Signed [facility] Work Phone: 1(406) 959-986505-05-[address] Ospina [facility] August 03, 2022 10:11am Note Date/Time August 03, 2022 7:37am [facility] Medical Records Department [address] [place] [address] Progress Note - Hospitalist 08/03/22 0737 MR#: [id number] Acct: [id number] Name: DAFNEKRUNAL CAR Rep #:[id number] : 1965 56 From: Eduin Ospina MD PCP: Dr. Radha Khan MD Status:ADM TALIB Location: [place] [address] Reason for Visit Reason for Visit: Diagnoses Dizziness and giddiness (08/01/22) Subjective Subjective MRI obtained the day prior did not demonstrate acute CVA. Patient vertigo most likely secondary to BPPV. Was seen and evaluated by physical therapy patient will continue with outpatient vestibular therapy Objective Data Objective Data Vital Signs: Vital Signs Temp Pulse Resp BP Pulse Ox O2 Del Method 97.5 F L 105 H 18 155/86 H 95 Room Air 08/03/22 03:46 08/03/22 03:46 08/03/22 03:46 08/03/22 03:46 08/03/22 03:46 08/03/22 03:48 Oxygen Delivery Method Room Air Weight: 139.6 kg Body Mass Index (BMI) 45.4 Intake & Output: Intake and Output for Last 24 Hours 08/01/22 08/02/22 08/03/22 23:59 23:59 23:59 Intake Total 1274.17 / 1274.17 Output Total 1725 / 1725 Balance -450.83 / -450.83 Lab / Micro Data Result Diagrams: 08/02/22 05:25 08/02/22 05:25 Labs: Laboratory Results - last 24 hr 08/02/22 05:25: Hemoglobin A1c 9.6 H 08/02/22 08:20: POC Glucose 277 H 08/02/22 11:12: POC Glucose 210 H 08/02/22 16:23: POC Glucose 225 H 08/02/22 22:14: POC Glucose 223 H Radiography Diagnostic Testing: Radiology Impression Brain MRI 08/02/22 00:31 IMPRESSION: 1. No intracranial mass, hemorrhage, or acute territorial infarct. 2. No radiographically significant sinus disease. Electronically Signed: Clint Otto MD at 20:10 EDT , Echocardiogram 08/02/22 00:31 Interpretation Summary Technically difficult study. Mild concentric left ventricular hypertrophy. The left ventricular ejection fraction is 60 %. The left atrium is moderately enlarged. Ordering Physician: Cookie Bell Referring Physician: Radha Khan Performed By: Bijal Fuast, DIANA, RVT Physical Exam Narrative GENERAL: cooperative HEENT: Atraumatic; normocephalic EYES; Anicteric, Normal Conjunctiva NECK; supple, normal thyroid, RESPIRATORY: Diminished to auscultation CARDIOVASCULAR: Regular S1 S2, GI: soft, normoactive bowel sounds, : No Renal angle tenderness; EXTREMITIES: No edema, no clubbing, MUSCULOSKELETAL: no muscle wasting NEURO: Awake; no lateralizing signs. SKIN: No Rash PSYCH; Flat affect Assessment & Plan Assessment/Plan (1) Vertigo: PLAN: Plan Patient is a 56-year-old male admitted with recurrent vertigo 1. Recurrent vertigo ? Patient admitted to monitored bed plan is for patient to undergo further evaluation with an MRI -08/03/2022 MRI obtained the day prior did not demonstrate acute CVA. Patient vertigo most likely secondary to BPPV. Was seen and evaluated by physical therapy patient will continue with outpatient vestibular therapy 2. Chronic diastolic congestive heart failure ? Currently stable 3. Paroxysmal atrial fibrillation ? Rate controlled on apixaban 4. Hypertension - Blood pressure controlled, home medications continued with dose adjustment as needed 5. Dyslipidemia -Patient is on statin therapy, continued at home dose 6. Hypothyroidism - Patient is on levothyroxine home dose continued 7. Depression with anxiety ? Did continue home meds 8. Class III obesity with BMI of 45.8 ? Weight loss advised 9. Obstructive sleep apnea ? Patient is on BiPAP at night 10. Hodgkin's lymphoma ? Currently in remission 11. DVT prophylaxis - On enoxaparin Time spent in the patient's overall evaluation,decision-making process, review of diagnostic data, adjustment of management, discussion with other providers, nursing nursing and ancillary staff involved in patient's care documentation, 40 Minutes Charges/Coding Visit Charges Inpatient E&M: 88151 Subs Hosp L2 08/03/22 1011 <Electronically signed by Eduin Ospina MD> Cosigner Signature (if applicable): CC: ~ Signed [facility] Work Phone: 1(237) 306-261105-04-[address] Ospina [facility] August 02, 2022 10:50am Note Date/Time August 02, 2022 8:30am [facility] Medical Records Department [address] [place] [address] Progress Note - Hospitalist 08/02/22 0828 MR#: [id number] Acct: [id number] Name: KRUNAL LEOS Rep #:[id number] : 1965 56 From: Eduin Ospina MD PCP: Dr. Radha Khan MD Status:ADM TALIB Location: [place] [address] Reason for Visit Reason for Visit: Diagnoses Dizziness and giddiness (08/01/22) Subjective Subjective Patient is a 56-year-old male admitted with recurrent vertigo Objective Data Objective Data Vital Signs: Vital Signs Temp Pulse Resp BP Pulse Ox O2 Del Method 98.1 F 101 H 16 148/88 H 94 Room Air 08/02/22 05:00 08/02/22 05:00 08/02/22 05:00 08/02/22 05:00 08/02/22 05:00 08/02/22 05:00 Oxygen Delivery Method Room Air Weight: 140.7 kg Body Mass Index (BMI) 45.9 Intake & Output: Intake and Output for Last 24 Hours 07/31/22 08/01/22 08/02/22 23:59 23:59 23:59 Intake Total 314.17 / 314.17 Output Total 900 / 900 Balance -585.83 / -585.83 Lab / Micro Data Result Diagrams: 08/02/22 05:25 08/02/22 05:25 Labs: Laboratory Results - last 24 hr 08/01/22 19:18: WBC 7.4, RBC 4.72, Hgb 11.8 L, Hct 36.8 L, MCV 78.0 L, MCH 25.0 L, MCHC 32.1, RDW Std Deviation 45.6 H, RDW Coeff of Gavi 16.2 H, Plt Count 216, MPV 9.9, Immature Gran % (Auto) 0.400, Neut % (Auto) 70.4 H, Lymph % (Auto) 13.4L, Park % (Auto) 11.7 H, Eos % (Auto) 3.4, Baso % (Auto) 0.7, Absolute Neuts (auto) 5.2, Absolute Lymphs (auto) 0.99, Nucleated RBC % 0 08/01/22 19:18: PT 13.8, INR 1.1, APTT 28.7 08/01/22 19:18: Sodium 134 L, Potassium 4.1, Chloride 104, Carbon Dioxide 23.0, Anion Gap 7, BUN 30 H, Creatinine 1.21, Est GFR (MDRD) Af Amer 79, Est GFR (MDRD) Non- Af 65, BUN/Creatinine Ratio 24.8 H, Glucose 262 H, Calcium 9.0 08/01/22 19:18: Troponin I High Sens 9 08/01/22 19:18: Magnesium 1.7 08/02/22 05:25: WBC 5.9, RBC 4.27 L, Hgb 10.7 L, Hct 33.7 L, MCV 78.9 L, MCH 25.1 L, MCHC 31.8 L, RDW Std Deviation 46.5 H, RDW Coeff of Gavi 16.4 H, Plt Count 193, MPV 9.9, Immature Gran % (Auto) 0.500, Neut % (Auto) 59.7, Lymph % (Auto) 21.5, Park % (Auto) 14.4 H, Eos % (Auto) 3.1, Baso % (Auto) 0.8, AbsoluteNeuts (auto) 3.5, Absolute Lymphs (auto) 1.27, Nucleated RBC % 0 08/02/22 05:25: Sodium 135 L, Potassium 4.0, Chloride 104, Carbon Dioxide 20.0 L, Anion Gap 11, BUN 21 H, Creatinine 0.97, Estim Creat Clear Calc 83.01, Est GFR(MDRD) Af Amer 102, Est GFR (MDRD) Non-Af 84, BUN/Creatinine Ratio 21.7 H, Glucose 280 H, Calcium 9.0, Total Bilirubin 0.50, AST 18, ALT 25, Alkaline Phosphatase 118 H, Total Protein 7.6, Albumin 3.2, Globulin 4.4 H, Albumin/Globulin Ratio 0.7 L, Triglycerides 300 H, Cholesterol 133, LDL Cholesterol 40, VLDL Cholesterol 60 H, HDL Cholesterol 33 L, TSH 1.36 Radiography Diagnostic Testing: Radiology Impression Chest X-Ray 08/01/22 19:38 IMPRESSION: Mild chronic interstitial changes in the lower lobes. No acute cardiopulmonary pathology. Electronically Signed: Sameer Aparicio MD at 19:51 EDT , Head/Neck CTA 08/01/22 20:02 IMPRESSION: Moderate to severe atherosclerotic plaquing of the extracranial carotids without evidence for hemodynamically significant stenosis utilizing a NASCET . Occluded left vertebral with reconstitution distally criteria Atherosclerotic changes in the brain with severe segmental stenosis of the M1/2 junction of the right middle cerebral artery Electronically Signed: Sameer Aparicio MD at 21:16 EDT , ADDENDUM: 08/01/222132 IMPRESSION: Moderate to severe atherosclerotic plaquing of the extracranial carotids without evidence for hemodynamically significant stenosis utilizing a NASCET . Occluded left vertebral with reconstitution distally criteria Atherosclerotic changes in the brain with severe segmental stenosis of the M1/2 junction of the right middle cerebral artery N.B. : The above Results were Read Back by Sameer Aparicio MD to Nely Hill MD, and understanding confirmed on 08/01/2022 21:26:38 (ET). Electronically Signed: Sameer Aparicio MD at 21:16 EDT , Physical Exam Narrative GENERAL: cooperative HEENT: Atraumatic; normocephalic EYES; Anicteric, Normal Conjunctiva NECK; supple, normal thyroid, RESPIRATORY: Diminished to auscultation CARDIOVASCULAR: Regular S1 S2, GI: soft, normoactive bowel sounds, : No Renal angle tenderness; EXTREMITIES: No edema, no clubbing, MUSCULOSKELETAL: no muscle wasting NEURO: Awake; no lateralizing signs. SKIN: No Rash PSYCH; Flat affect Assessment & Plan Assessment/Plan (1) Vertigo: PLAN: Plan Patient is a 56-year-old male admitted with recurrent vertigo 1. Recurrent vertigo ? Patient admitted to monitored bed plan is for patient to undergo further evaluation with an MRI 2. Chronic diastolic congestive heart failure ? Currently stable 3. Paroxysmal atrial fibrillation ? Rate controlled on apixaban 4. Hypertension - Blood pressure controlled, home medications continued with dose adjustment as needed 5. Dyslipidemia -Patient is on statin therapy, continued at home dose 6. Hypothyroidism - Patient is on levothyroxine home dose continued 7. Depression with anxiety ? Did continue home meds 8. Class III obesity with BMI of 45.8 ? Weight loss advised 9. Obstructive sleep apnea ? Patient is on BiPAP at night 10. Hodgkin's lymphoma ? Currently in remission 11. DVT prophylaxis - On enoxaparin Time spent in the patient's overall evaluation,decision-making process, review of diagnostic data, adjustment of management, discussion with other providers, nursing nursing and ancillary staff involved in patient's care documentation, 40 Minutes Charges/Coding Visit Charges Inpatient E&M: 18514 Subs Hosp L2 08/02/22 1050 <Electronically signed by Eduin Ospina MD> Cosigner Signature (if applicable): CC: ~ Signed [facility] Work Phone: 1(576) 191-993605-04-2023 History and physical note Author Dr. Bell [facility] August 02, 2022 2:34am Note Date/Time August 01, 2022 10:32p m [facility] Medical Records Department [address] [place] [address] H&P Exam - Hospitalist 08/01/22 2232 MR#: [id number] Acct: [id number] Name: KRUNAL LEOS Rep #:[id number] : 1965 56 From: Cookie Bell MD PCP: Dr. Radha Khan MD Status:ADM TALIB Location: [place] [address] HPI - General General Date of Admission: 08/01/22 Date of Service: 08/01/22 Chief Complaint: Recurrent vertigo, posterior headaches. HPI Narrative The is a 56 y/o M w/ PMHx: Anxiety and Depression, Morbid Obesity, Chronic anemia, Chronic Diastolic CHF, PAF, HTN, HLD, KIANNA on BIPAP q HS, Carotid disease, HTN, HLD, History of Hodgkin's disease, Hypothyroidism, Diabetes mellitus type II with chronic neuropathy, Hx TIA who presents to the [facility] ED on 08/01/22 with history of ongoing issues with intermittent posterior headaches described as throbbing and aching with no light or sound sensitivity rated 2-3 out of 10 in severity since March with onset over the last several weeks intermittent issues with now onset of not only headache but episodes of lightheadedness, dizziness and vertiginous symptoms although these seem to be short-lived patient reports he would still be able to be up and moving with worsening symptoms specifically the vertiginous symptoms with specific movement of his head however this usually abated but upon current presentation it was intractable with associated nausea and emesis prompting eventual ED evaluation. The episode upon his current presentation started approximately 5:30 PM while eating dinner with onset of similar symptoms with concurrent bilateral nystagmuswhich has been similar to previous as well. In the ED work-up included T98.1, heart rate 96, BP 148/82, respiratory rate 18, 99% on room air, CBC with WC 7.4,hemoglobin 11.8, MCV 78, platelet 216 without marked shift, unremarkable coags, BMP with sodium 134, BUN/creatinine 30/1.21, glucose 262, troponin 9, chest x-ray with mild chronic interstitial changes in both lower lobes with no acute cardiopulmonary findings otherwise, CTA head and neck with moderate to severe atherosclerotic plaquing of the extracranial carotids without any evidence of hemodynamically significant stenosis, occluded left vertebral with reconstitution distally, atherosclerotic changes in the brain with severe segmental stenosis of the M1/2 junction of the right middle cerebral artery, EKGwith sinus tachycardia with no acute evidence of ischemia. ED physician given MRI findings did contact [facility] telestroke and reviewed to ensure that there was norequired or potential intervention for the severe segmental stenosis noted of the right middle cerebral artery. The neurology service noted that there was nointervention specifically that would be done but recommended continued admissionwith stroke work-up including MRI of the brain. In the ED patient administered low-dose IV fluids, fentanyl 25 mcg IV x1, meclizine 25 mg p.o. x1. [facility] Medical History (Updated 08/02/22 @ 02:[address] Cookie Bell MD) Anemia Anxiety and depression Atrial fibrillation BPH (benign prostatic hyperplasia) Carotid stenosis Congestive heart failure (CHF) Diabetes mellitus, type II Essential (primary) hypertension GERD (gastroesophageal reflux disease) High cholesterol History of non-ST elevation myocardial infarction (NSTEMI) (03/28/20) Hodgkin disease Hyperlipidemia Hypertension Hypothyroidism Low testosterone Morbid obesity with BMI of 45.0-49.9, adult Nephrolithiasis Non-smoker Obesity KIANNA treated with BiPAP TIA (transient ischemic attack) (2019) Vision loss of left eye Vision loss of right eye Home Medications levothyroxine 125 mcg tablet 125 mcg PO DAILY thyroid 05/03/15 [History Last Taken 05/09/22] pantoprazole 40 mg tablet,delayed release (Protonix) 40 mg PO DAILY acid reflux 05/03/15 [History Last Taken 06/19/21 07:00] tamsulosin 0.4 mg capsule 0.4 mg PO DAILY prostate 09/08/15 [History Last Taken 05/09/22] buspirone 10 mg tablet 10 mg PO TID PRN PRN Anxiety 04/17/18 [History Last Taken 06/19/21 07:00] duloxetine 60 mg capsule,delayed release (Cymbalta) 60 mg PO DAILY depression 04/17/18 [History Last Taken 06/19/21 07:00] aspirin 81 mg chewable tablet 81 mg PO DAILY@0800 03/30/20 [Rx Last Taken 05/09/22] 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 meter,continuous (Dexcom G6 Dietetics Teacher) #1 ea 07/26/20 [Rx Last Taken Unknown] pen needle, diabetic 31 gauge x 5/16 #1,200 ea 12/22/20 [History Last Taken Unknown] pen needle, diabetic 32 gauge x 5/32 (BD Ultra-Fine Kiki Pen Needle) #150 ea 06/01/21 [Rx Last Taken Unknown] atorvastatin 80 mg tablet (Lipitor) 80 mg PO QHS 09/04/21 [History Last Taken Unknown] metoprolol succinate 100 mg tablet,extended release 24 hr 100 mg PO DAILY #90 tabs 12/08/21 [Rx Last Taken 05/09/22] 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 sensor (Dexcom G6 Sensor device) #3 ea 12/29/21 [Rx Last Taken Unknown] 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 transmitter (Dexcom G6 Transmitter device) #1 ea 12/29/21 [Rx Last Taken Unknown] amlodipine 10 mg tablet 10 mg PO DAILY #30 tabs 01/25/22 [Rx Last Taken 05/09/22] glimepiride 4 mg tablet (Amaryl) 4 mg PO BID #180 tabs 03/12/22 [Rx Last Taken Unknown] spironolactone 50 mg tablet 50 mg PO DAILY #90 tabs 05/21/22 [Rx Last Taken Unknown] apixaban 5 mg tablet (Eliquis) 5 mg PO BID #180 tabs 05/22/22 [Rx Last Taken Unknown] furosemide 40 mg tablet (Lasix) 40 mg PO BID 08/01/22 [History Last Taken Unknown] insulin glargine U-300 conc 300 unit/mL (1.5 mL) subcutaneous pen (Toujeo SoloStar U-300 Insulin) 55 unit subcut DAILY diabetes 08/01/22 [History Last Taken Unknown] insulin lispro 100 unit/mL subcutaneous pen (Humalog KwikPen (U-100) Insulin) 25unit subcut TIDCM 08/01/22 [History Last Taken Unknown] lisinopril 40 mg tablet 40 mg PO BID 08/01/22 [History Last Taken Unknown] Allergy/AdvReac Type Severity Reaction Status Date / Time metoclopramide HCl Allergy Anaphylaxis Verified 08/01/22 19:10 [From [facility]] Family History (Updated 08/02/22 @ 02:[address] Cookie Bell MD) Brother Heart disease Mother CVA (cerebral vascular accident) Hypertension Rheumatoid arthritis Father Diabetes Other Alcohol abuse ulcer disease Surgical History History of left heart catheterization (2009) History of thoracentesis (2015) Hx of nephrolithotomy with removal of calculi Social History household members: spouse and none Smoking Status: Never smoker Electronic Cigarette Use: not used second hand exposure: No alcohol intake: never substance use type: does not use what type of physical activity do you participate in: none ROS ROS Narrative Admission Review of Systems: CONSTITUTIONAL: No weight loss, fever, chills, + weakness or fatigue. HEENT: + Bilateral eye nystagmus, rotational toward the right with associated vertigo, room spinning, posterior headache. Eyes: No blurred vision, double vision or yellow sclerae. Ears, Nose, Throat: No hearing loss, sneezing, congestion, runny nose or sore throat. SKIN: No rash or itching, lesions, wounds. CARDIOVASCULAR: No chest pain, chest pressure or chest discomfort, palpitations,edema, orthopnea, syncopal events. RESPIRATORY: No shortness of breath, cough or sputum, wheezing, hemoptysis. GASTROINTESTINAL: + anorexia, nausea, vomiting. No diarrhea, abdominal pain, melena, BRBPR. GENITOURINARY: No dysuria, frequency, urgency or retention. NEUROLOGICAL: + Posterior headache with vertigo, lightheadedness, dizziness. Nosyncope, paralysis, ataxia, numbness or tingling in the extremities, focal weakness, change in bowel or bladder control, seizure. MUSCULOSKELETAL: + muscle, back pain, joint pain or stiffness. HEMATOLOGIC: + anemia, bleeding or bruising. LYMPHATICS: No enlarged nodes. No history of splenectomy. PSYCHIATRIC: + history of depression or anxiety. ENDOCRINOLOGIC: No reports of sweating, cold or heat intolerance. No polyuria orpolydipsia. ALLERGIES: + History of anaphylaxis. Vital Signs Vital Signs Vital Signs: 08/01/22 19:07 08/01/22 19:56 08/01/22 20:28 Temperature 98.1 F Temperature Source Temporal Pulse Rate 96 Respiratory Rate 18 Respiratory Effort Normal Non-Labored Respiratory Pattern Normal Blood Pressure 148/82 H Blood Pressure Mean 104 Pulse Ox 99 Oxygen Delivery Method Room Air Room Air 08/01/22 19:56 08/01/22 21:54 Temperature Temperature Source Pulse Rate 81 106 H Respiratory Rate 17 20 H Respiratory Effort Respiratory Pattern Blood Pressure 149/79 H 156/97 H Blood Pressure Mean 102 116 Pulse Ox 97 99 Oxygen Delivery Method Room Air Room Air Weight Weight: 309 lb 15.519 oz Body Mass Index (BMI) 45.8 Physical Exam Narrative Physical Examination: General: Awake, alert, oriented x 3 and cooperative, seated upright in the ED bed, fatigued, keeping his eyes closed secondary to ongoing vertigo when he opens his eyes with persistent nystagmus. Skin: Normal color, normal turgor, no icterus, no cyanosis. HEENT: AT/NC, EOMI but difficult assessment as ongoing persistent clockwise rotational toward the right bilateral eye nystagmus, PERRLA, dry MM, no carotid bruits or JVD noted. Lungs: Diminished, greater bases, appropriate effort, no rales, ronchi or wheezing. Heart: Currently regular rate and rhythm; no gallop, rub audible. Abdomen: Soft, morbidly obese, NTTP, no obvious distention, mildly hyperactive BS, difficult to ascertain HSM secondary to habitus. Extremities: No cyanosis, no clubbing, chronic lower extremity nonpitting edema. Neurological: Patient awake, alert, oriented as noted, cognitive function intact; pupils equally reactive to light and accommodation, cranial nerves grossly normal except ongoing persistent as noted clockwise rotational nystagmustoward the right bilaterally, moving all 4 extremities, no focal deficits, strength moderately to severely global decrease secondary to acute complaints, sensation intact, difficulty performing FTS secondary to need to keep his eyes closed, HTS intact, equivocal Babinski. Psychiatric: Affect appears fatigued, ill-appearing, no acute evidence of depressive or anxiety feelings but does have underlying history. Results Lab / Micro Data Result Diagrams: 08/01/22 19:18 08/01/22 19:18 Labs: Laboratory Results - last 24 hr 08/01/22 19:18: WBC 7.4, RBC 4.72, Hgb 11.8 L, Hct 36.8 L, MCV 78.0 L, MCH 25.0 L, MCHC 32.1, RDW Std Deviation 45.6 H, RDW Coeff of Gavi 16.2 H, Plt Count 216, MPV 9.9, Immature Gran % (Auto) 0.400, Neut % (Auto) 70.4 H, Lymph % (Auto) 13.4L, Park % (Auto) 11.7 H, Eos % (Auto) 3.4, Baso % (Auto) 0.7, Absolute Neuts (auto) 5.2, Absolute Lymphs (auto) 0.99, Nucleated RBC % 0 08/01/22 19:18: PT 13.8, INR 1.1, APTT 28.7 08/01/22 19:18: Sodium 134 L, Potassium 4.1, Chloride 104, Carbon Dioxide 23.0, Anion Gap 7, BUN 30 H, Creatinine 1.21, Est GFR (MDRD) Af Amer 79, Est GFR (MDRD) Non- Af 65, BUN/Creatinine Ratio 24.8 H, Glucose 262 H, Calcium 9.0 08/01/22 19:18: Troponin I High Sens 9 Radiology Impression Chest X-Ray 08/01/22 19:38 IMPRESSION: Mild chronic interstitial changes in the lower lobes. No acute cardiopulmonary pathology. Electronically Signed: Sameer Aparicio MD at 19:51 EDT , Head/Neck CTA 08/01/22 20:02 IMPRESSION: Moderate to severe atherosclerotic plaquing of the extracranial carotids without evidence for hemodynamically significant stenosis utilizing a NASCET . Occluded left vertebral with reconstitution distally criteria Atherosclerotic changes in the brain with severe segmental stenosis of the M1/2 junction of the right middle cerebral artery Electronically Signed: Sameer Aparicio MD at 21:16 EDT , ADDENDUM: 08/01/222132 IMPRESSION: Moderate to severe atherosclerotic plaquing of the extracranial carotids without evidence for hemodynamically significant stenosis utilizing a NASCET . Occluded left vertebral with reconstitution distally criteria Atherosclerotic changes in the brain with severe segmental stenosis of the M1/2 junction of the right middle cerebral artery N.B. : The above Results were Read Back by Sameer Aparicio MD to Nely Hill MD, and understanding confirmed on 08/01/2022 21:26:38 (ET). Electronically Signed: Sameer Aparicio MD at 21:16 EDT , Assessment & Plan Assessment/Plan (1) Vertigo: PLAN: Plan The is a 56 y/o M w/ PMHx: Anxiety and Depression, Morbid Obesity, Chronic anemia, Chronic Diastolic CHF, PAF, HTN, HLD, KIANNA on BIPAP q HS, Carotid disease, HTN, HLD, History of Hodgkin's disease, Hypothyroidism, Diabetes mellitus type II with chronic neuropathy, Hx TIA who presents to the [facility] ED on 08/01/22 with history of ongoing issues with intermittent posterior headaches described as throbbing and aching with no light or sound sensitivity rated 2-3 out of 10 in severity since March with onset over the last several weeks intermittent issues with now onset of not only headache but episodes of lightheadedness, dizziness and vertiginous symptoms although these seem to be short-lived patient reports he would still be able to be up and moving with worsening symptoms specifically the vertiginous symptoms with specific movement of his head however this usually abated but upon current presentation it was intractable with associated nausea and emesis prompting eventual ED evaluation. #1. Recurrent vertigo with associated posterior headaches concerning for possible posterior CVA with history of prior TIA: We will admit to PCU, will obtain MRI Brain, will obtain ECHO, PT/OT/Speech/Nutrition evaluation per protocol. Will allow permissive HTN, maintain on asa and continue patient chronic apixaban regimen, continue home statin w/ AM FLP, fall precautions. FLP, HgbA1c, magnesium, TSH level requested. We will maintain on fall precautions. We will have as needed Valium for vertiginous symptoms. Once this work-up is obtained would plan to reassess for Neurology consultation. #2. Chronic Diastolic CHF: 06/19/2021 echocardiogram with moderately dilated LV,normal LV systolic function, EF 65%, stage I diastolic dysfunction. We will continue patient home aspirin, extubated, statin therapy, temporarily holding patient metoprolol, spironolactone, Lasix as well as lisinopril regimen for permissive head retention given acute presentation #1, add back once appropriate. Will judiciously hydrate given this history. #3. PAF: Temporally holding patient metoprolol for permissive hypertension, addback once appropriate, continue patient home apixaban regimen. #4. Carotid disease: Noted prior history, CTA head and neck with moderate to severe atherosclerotic plaquing of the extracranial carotids with no significantstenosis, will continue aspirin, Eliquis, statin therapy, hypertensive regimen temporarily held given permissive hypertension presentation as noted, add back once appropriate. #5. Hypertension: Given acute presentation we will maintain permissive hypertension with as needed agents per stroke protocol, add back oral regimen once appropriate. #6. Hyperlipidemia: We will continue patient on statin therapy, FLP in AM. #7. Diabetes mellitus type II with chronic neuropathy: Hold oral home regimen, continue home insulin regimen, ADA diet, accu checks w/ ISS, hemoglobin A1c requested with nutrition consultation in addition given acute presentation #1. #8. Hypothyroidism: We will continue patient on levothyroxine regimen, TSH requested. #9. Chronic anemia, microcytic: Admission hemoglobin 11.8, MCV 78, baseline hemoglobin 11, stable, continue to trend. #10. Anxiety and depression: Will continue patient home cymbalta and buspar regimen. #11. BPH: We will continue patient home Flomax regimen. #12. GERD: We will continue patient home PPI. #13. Hodgkin's disease: Unclear specific cancer details, status post chemotherapy as well as radiation, presumed in remission. #14. Morbid Obesity: Weight loss and lifestyle changes encouraged, nutrition consulted. #15. KIANNA: BiPAP nightly. #16. DVT prophylaxis: SCDs, Lovenox. #17. CODE status: Patient SORAYA is his and living will is currently in place. Discussed CODE status at length including difference between FULL code, DNR-CCA and DNR-CC status. Following discussions about the differences in these status, requested Full Code status. Advanced Care Planning Face to Face Time: 16minutes. Admission Evaluation Time spent evaluating chart, patient history, patient evaluation, care planning and discussion with specialists: 75 minutes. Charges/Coding Visit Charges Inpatient E&M: 90076 Init Hosp L3 Procedures Hospitalists Procedures: 10052 Advncd Care Plan 30 Min 08/02/22 0234 <Electronically signed by Cookie Bell MD> Cosigner Signature (if applicable): CC: Dr. Radha Khan MD; Dr. Cookie Bell MD~ Signed [facility] Work Phone: [phone] 706-777105-04-[address] Hill [facility] August 01, 2022 11:55pm Note Date/Time August 01, 2022 8:08pm [facility] Medical Records Department [address] [place] [address] Emergency Department Summary 08/01/22 MR#: [id number] Acct: [id number] Name: KRUNAL LEOS Rep #:[id number] : 1965 56 From: Nely Hill MD PCP: Dr. Radha Khan MD Status:ADM TALIB Location: [place] [address] HPI History of Present Illness Chief Complaint: Dizziness Informant: patient Onset/Context/Timing Onset: - (Frequent episodes recently, this episode started 5:30 PM this evening.) Narrative Narrative: Patient presents secondary to dizziness. He states he was eating dinner tonightat 530 when he felt like his eyes started rolling and things started spinning. It is somewhat worse when he turns his head. He states he has been having similar episodes of dizziness recently that have been occurring up to a couple times a week. He states he had a bad episode yesterday where he got nauseated and sweaty, but really did not have a lot of dizziness. Today he states is almost opposite where he has dizziness but does not feel nauseated or sweaty. He denies chest pain or palpitations. He has been having neck pain and recentlyhad x-rays. He believes his doctor is referring him to an orthopedic surgeon. He states he has had carotid studies done in the past that were equivocal and norecommendation for surgery was made. [facility] Medical History Acute kidney injury Anemia Anxiety Anxiety and depression Atrial fibrillation Atrial fibrillation with RVR (03/28/20) BPH (benign prostatic hyperplasia) Cancer Carotid stenosis Current use of insulin Depression Diabetes Diabetes mellitus, type II Dyspnea Essential (primary) hypertension GERD (gastroesophageal reflux disease) High cholesterol History of non-ST elevation myocardial infarction (NSTEMI) (03/28/20) Hodgkin disease Hyperlipidemia Hypertension Hypothyroidism Lactic acidosis Low testosterone Morbid obesity with BMI of 45.0-49.9, adult Nephrolithiasis Non-smoker Obesity KIANNA (obstructive sleep apnea) Polyneuropathy due to type 2 diabetes mellitus Sleep apnea TIA (transient ischemic attack) (2019) Vision loss of left eye Vision loss of right eye Home Medications levothyroxine 125 mcg tablet 125 mcg PO DAILY thyroid 05/03/15 [History Last Taken 05/09/22] pantoprazole 40 mg tablet,delayed release (Protonix) 40 mg PO DAILY acid reflux 05/03/15 [History Last Taken 06/19/21 07:00] tamsulosin 0.4 mg capsule 0.4 mg PO DAILY prostate 09/08/15 [History Last Taken 05/09/22] buspirone 10 mg tablet 10 mg PO TID PRN anxiety 04/17/18 [History Last Taken 06/19/21 07:00] duloxetine 60 mg capsule,delayed release (Cymbalta) 60 mg PO DAILY depression 04/17/18 [History Last Taken 06/19/21 07:00] aspirin 81 mg chewable tablet 81 mg PO DAILY@0800 03/30/20 [Rx Last Taken 05/09/22] 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 meter,continuous (Dexcom G6 Dietetics Teacher) #1 ea 07/26/20 [Rx Last Taken Unknown] pen needle, diabetic 31 gauge x 5/16 #1,200 ea 12/22/20 [History Last Taken Unknown] pen needle, diabetic 32 gauge x 5/32 (BD Ultra-Fine Kiki Pen Needle) #150 ea 06/01/21 [Rx Last Taken Unknown] atorvastatin 80 mg tablet (Lipitor) 80 mg PO QHS 09/04/21 [History Last Taken Unknown] metoprolol succinate 100 mg tablet,extended release 24 hr 100 mg PO DAILY #90 tabs 12/08/21 [Rx Last Taken 05/09/22] 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 sensor (Dexcom G6 Sensor device) #3 ea 12/29/21 [Rx Last Taken Unknown] 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 transmitter (Dexcom G6 Transmitter device) #1 ea 12/29/21 [Rx Last Taken Unknown] amlodipine 10 mg tablet 10 mg PO DAILY #30 tabs 01/25/22 [Rx Last Taken 05/09/22] glimepiride 4 mg tablet (Amaryl) 4 mg PO BID #180 tabs 03/12/22 [Rx Last Taken Unknown] spironolactone 50 mg tablet 50 mg PO DAILY #90 tabs 05/21/22 [Rx Last Taken Unknown] apixaban 5 mg tablet (Eliquis) 5 mg PO BID #180 tabs 05/22/22 [Rx Last Taken Unknown] furosemide 40 mg tablet (Lasix) 40 mg PO BID 08/01/22 [History Last Taken Unknown] insulin glargine U-300 conc 300 unit/mL (1.5 mL) subcutaneous pen (Toujeo SoloStar U-300 Insulin) 55 unit subcut DAILY diabetes 08/01/22 [History Last Taken Unknown] insulin lispro 100 unit/mL subcutaneous pen (Humalog KwikPen (U-100) Insulin) 25unit subcut TIDCM 08/01/22 [History Last Taken Unknown] lisinopril 40 mg tablet 40 mg PO BID 08/01/22 [History Last Taken Unknown] Allergy/AdvReac Type Severity Reaction Status Date / Time metoclopramide HCl Allergy Anaphylaxis Verified 08/01/22 19:10 [From Reglan] Family History Brother Heart disease Other Alcohol abuse Arthritis CVA (cerebral vascular accident) Diabetes ulcer disease Surgical History History of left heart catheterization (2009) History of thoracentesis (2015) Hx of nephrolithotomy with removal of calculi Social History household members: spouse and none Smoking Status: Never smoker Electronic Cigarette Use: not used second hand exposure: No alcohol intake: never substance use type: does not use what type of physical activity do you participate in: none ROS ROS ED Constitutional Constitutional ED: Denies chills or fever(s) Eyes Eyes: Denies change in vision or discharge from eye(s) ENT ENT ED: Denies discharge from eye(s), rhinorrhea or sore throat Cardiovascular Cardiovascular: Denies chest pain or palpitations Respiratory/Chest Respiratory/Chest: Denies cough or dyspnea Gastrointestinal Gastrointestinal: Denies abdominal pain, nausea or vomiting Genitourinary Genitourinary ED: Denies difficulty urinating or dysuria Musculoskeletal Musculoskeletal: Reports neck pain; Denies back pain or extremity pain Integumentary Denies Abrasions or rash Neurologic Neurologic: Reports headache(s); Denies weakness Allergic/Immunologic Allergic/Immunologic ED: Denies lip swelling or urticaria EXAM Physical Exam Const Vital Signs: 08/01/22 19:07 08/01/22 19:56 08/01/22 20:28 Temperature 98.1 F Temperature Source Temporal Pulse Rate 96 Respiratory Rate 18 Respiratory Effort Normal Non-Labored Respiratory Pattern Normal Blood Pressure 148/82 H Blood Pressure Mean 104 Pulse Ox 99 Oxygen Delivery Method Room Air Room Air 08/01/22 19:56 08/01/22 21:54 08/01/22 23:17 Temperature Temperature Source Pulse Rate 81 106 H Respiratory Rate 17 20 H 23 H Respiratory Effort Respiratory Pattern Blood Pressure 149/79 H 156/97 H 158/101 H Blood Pressure Mean 102 116 120 Pulse Ox 97 99 Oxygen Delivery Method Room Air Room Air 08/01/22 23:29 Temperature 97.5 F L Temperature Source Oral Pulse Rate 108 H Respiratory Rate 21 H Respiratory Effort Respiratory Pattern Blood Pressure 158/101 H Blood Pressure Mean 120 Pulse Ox 98 Oxygen Delivery Method Room Air Positive well nourished and well developed General Appearance ED: well developed HEENT Reports normocephalic and head/scalp atraumatic Eyes PERRL and EOMs intact bilaterally Eyes Narrative: Rotary nystagmus noted. Neck supple Chest Wall inspection of chest normal and palpation of chest normal Resp normal respiratory effort and clear to auscultation bilaterally Cardio regular rate and regular rhythm GI normal to inspection, nondistended, normoactive bowel sounds Palpation: soft Extremity normal to inspection Neuro oriented x3 and no sensory deficits noted Neuro Narrative: NIH equals 0 Sensorium / Orientation: alert Motor Exam: strength 5/5 throughout Psych mental status grossly normal Skin no rashes or lesions noted MDM MDM MDM Narrative Medical decision making narrative: Patient placed on school bus monitor. EKG obtained to evaluate for cardiac arrhythmia/ischemia. Labwork obtained to evaluate for leukocytosis, anemia, andelectrolyte derangement. Chest x-ray obtained to evaluate for acute lung pathology, cardiac size, or mediastinal abnormality. CTA of the head and neck obtained given concern for CVA component of his vertigo. Patient was given Antivert. Lab Data Attestation: I reviewed the patient's lab results. Labs: Laboratory Results - last 24 hr 08/01/22 08/01/22 08/01/22 19:18 19:18 19:18 WBC 7.4 RBC 4.72 Hgb 11.8 L Hct 36.8 L MCV 78.0 L MCH 25.0 L MCHC 32.1 RDW Std Deviation 45.6 H RDW Coeff of Gavi 16.2 H Plt Count 216 MPV 9.9 Immature Gran % (Auto) 0.400 Neut % (Auto) 70.4 H Lymph % (Auto) 13.4 L Park % (Auto) 11.7 H Eos % (Auto) 3.4 Baso % (Auto) 0.7 Absolute Neuts (auto) 5.2 Absolute Lymphs (auto) 0.99 Nucleated RBC % 0 PT 13.8 INR 1.1 APTT 28.7 Sodium 134 L Potassium 4.1 Chloride 104 Carbon Dioxide 23.0 Anion Gap 7 BUN 30 H Creatinine 1.21 Est GFR (MDRD) Af Amer 79 Est GFR (MDRD) Non-Af 65 BUN/Creatinine Ratio 24.8 H Glucose 262 H Calcium 9.0 Troponin I High Sens 08/01/22 19:18 WBC RBC Hgb Hct MCV MCH MCHC RDW Std Deviation RDW Coeff of Gavi Plt Count MPV Immature Gran % (Auto) Neut % (Auto) Lymph % (Auto) Park % (Auto) Eos % (Auto) Baso % (Auto) Absolute Neuts (auto) Absolute Lymphs (auto) Nucleated RBC % PT INR APTT Sodium Potassium Chloride Carbon Dioxide Anion Gap BUN Creatinine Est GFR (MDRD) Af Amer Est GFR (MDRD) Non-Af BUN/Creatinine Ratio Glucose Calcium Troponin I High Sens 9 Radiography Chest X-Ray - ED: 1 View, Read by ED Physician, Chronic Changes and No Infiltrates Diagnostic Testing: Clinical Impression(s) from Imaging Studies Chest X-Ray 08/01/22 19:38 IMPRESSION: Mild chronic interstitial changes in the lower lobes. No acute cardiopulmonary pathology. Electronically Signed: Sameer Aparicio MD at 19:51 EDT , Head/Neck CTA 08/01/22 20:02 IMPRESSION: Moderate to severe atherosclerotic plaquing of the extracranial carotids without evidence for hemodynamically significant stenosis utilizing a NASCET . Occluded left vertebral with reconstitution distally criteria Atherosclerotic changes in the brain with severe segmental stenosis of the M1/2 junction of the right middle cerebral artery Electronically Signed: Sameer Aparicio MD at 21:16 EDT , ADDENDUM: 08/01/222132 IMPRESSION: Moderate to severe atherosclerotic plaquing of the extracranial carotids without evidence for hemodynamically significant stenosis utilizing a NASCET . Occluded left vertebral with reconstitution distally criteria Atherosclerotic changes in the brain with severe segmental stenosis of the M1/2 junction of the right middle cerebral artery N.B. : The above Results were Read Back by Sameer Aparicio MD to Nely Hill MD, and understanding confirmed on 08/01/2022 21:26:38 (ET). Electronically Signed: Sameer Aparicio MD at 21:16 EDT Reading Location ID and State: [facility] / [place] , Service support , EKG Initial EKG: Attestation: I personally reviewed and interpreted this EKG as follows: Interpretation: Sinus Tachycardia (Sinus tach at 101. No acute ischemia.) Management Discussion w/another healthcare provider: Hospitalist, Radiologist and Other (Neurology at [facility]) Treatment and Re-Evaluation :: RestartCBC was normal white count at 7.4 with a hemoglobin 11.8. He is remarkable for BUN of 30 and a creatinine 1.21. Glucose is elevated at 262. Coags are unremarkable. Troponin is normal at 9. EKG reveals no evidence of acute ischemia. Chest x-ray per my interpretation feels chronic changes with no infiltrate. Radiology interpretation is reviewed. CTA of the head and neck reveals moderate to severe atherosclerotic plaquing of the extracranial carotids without evidence of hemodynamically significant stenosis. There is an occluded left vertebral with reconstitution distally. Atherosclerotic changes are noted in the brain with severe segmental stenosis ofthe M1/2 junction of the right middle cerebral artery. Radiologist called me specifically to bring to my attention the stenosis noted in the right MCA. He stated that he was not sure any intervention could be donebut wanted to bring it to our attention. I spoke with neurology at [facility]. Given that the patient is already on dual therapy with aspirin and Eliquis, he recommended MRI in the morning. If any significant findings are noted we can reconsult them regarding further recommendations for possible triple therapy. Patient is discussed with the hospitalist and patient admitted to the floor for further treatment and evaluation. Discharge Plan Triage Chief Complaint: Dizziness ED Provider: Nely Hill Dx/Rx/DC Orders Clinical Impression: Vertigo Prescriptions: No Action (DME) Dexcom G6 Dietetics Teacher Misc See Rx Instructions .ROUTE .MEDSUPPLY Qty: 1 0RF Rx Instructions: As directed (DME) pen needle, diabetic 31 gauge x 5/16 needle See Rx Instructions .ROUTE .MEDSUPPLY Qty: 1200 Label Comments: use 1 PEN NEEDLE to inject MEDICATION subcutaneously as directed Rx Instructions: As directed (DME) pen needle, diabetic [BD Ultra-Fine Kiki Pen Needle] 32 gauge x 5/32 needle See Rx Instructions .ROUTE .MEDSUPPLY Qty: 150 6RF Rx Instructions: As directed spironolactone 50 mg tablet 50 mg PO DAILY Qty: 90 3RF pantoprazole [Protonix] 40 MG tablet 40 mg PO DAILY levothyroxine 125 MCG tablet 125 mcg PO DAILY tamsulosin 0.4 MG capsule 0.4 mg PO DAILY buspirone 10 MG tablet 10 mg PO TID PRN Label Comments: TAKE ONE TABLET BY MOUTH THREE TIMES DAILY duloxetine [Cymbalta] 60 MG capsule,delayed release(DR/EC) 60 mg PO DAILY Label Comments: TAKE ONE CAPSULE BY MOUTH DAILY aspirin 81 MG tablet,chewable 81 mg PO DAILY@0800 0RF atorvastatin [Lipitor] 80 MG tablet 80 mg PO QHS Rx Instructions: cholesterol furosemide [Lasix] 40 mg tablet 40 mg PO BID lisinopril 40 mg tablet 40 mg PO BID Rx Instructions: blood pressure insulin lispro [Humalog KwikPen Insulin] 100 unit/mL insulin pen 25 unit subcut TIDCM Toujeo SoloStar U-300 Insulin 300 unit/mL (1.5 mL) insulin pen 55 unit SUBCUT DAILY metoprolol succinate 100 mg tablet extended release 24 hr 100 mg PO DAILY Qty: 90 3RF (DME) Dexcom G6 Sensor Device See Rx Instructions .ROUTE .MEDSUPPLY Qty: 3 6RF Rx Instructions: As directed (DME) Dexcom G6 Transmitter Device See Rx Instructions .ROUTE .MEDSUPPLY Qty: 1 3RF Rx Instructions: As directed amlodipine 10 mg tablet 10 mg PO DAILY Qty: 30 11RF glimepiride [Amaryl] 4 mg tablet 4 mg PO BID Qty: 180 1RF Eliquis 5 mg tablet 5 mg PO BID Qty: 180 3RF Primary Care Provider: Radha Khan Referrals: Radha Khan MD [Primary Care Provider] - Disposition Disposition: Acute Care Hospital [facility] What to do if you have Problems For any increased pain, shortness of breath, bleeding, nausea or vomiting, chestpain, or any unexpected problems, contact your Primary Care Provider. Call [facility] ([phone]) or report to the closest Emergency Room. Call 911 if necessary. 08/01/22 8330 <Electronically signed by Nely Hill MD> Cosigner Signature (if applicable): CC: Dr. Radha Khan MD ~ Signed [facility] Work Phone: Evaluation note* Diagnosis Onset Date Resolution Status Diabetes chronic Essential (primary) hypertension chronic Hyperlipidemia chronic Obesity chronic Essential (primary) hypertension chronic Hyperlipidemia chronic Acidosis, lactic resolved Acute respiratory failure with hypoxia resolved New onset of congestive heart failure resolved Diabetes chronic Obesity chronic Dyspnea on exertion acute Paroxysmal atrial fibrillation acute Essential (primary) hypertension chronic Dyspnea on exertion acute Chronic diastolic CHF (congestive heart failure) chronic KIANNA (obstructive sleep apnea) [facility] Work Phone: Evaluation note* Diagnosis Onset Date Resolution Status Diabetes chronic Essential (primary) hypertension chronic Hyperlipidemia chronic Obesity chronic Essential (primary) hypertension chronic Hyperlipidemia chronic Acidosis, lactic resolved Acute respiratory failure with hypoxia resolved New onset of congestive heart failure resolved Diabetes chronic Obesity chronic Dyspnea on exertion acute Paroxysmal atrial fibrillation acute Essential (primary) hypertension chronic Dyspnea on exertion acute Chronic diastolic CHF (congestive heart failure) chronic KIANNA (obstructive sleep apnea) chronic Diabetes chronic Obesity [facility] Work Phone: Evaluation note* Diagnosis Onset Date Resolution Status Diabetes chronic Essential (primary) hypertension chronic Hyperlipidemia chronic Obesity chronic Essential (primary) hypertension chronic Hyperlipidemia chronic Acidosis, lactic resolved Acute respiratory failure with hypoxia resolved New onset of congestive heart failure resolved Diabetes chronic Obesity chronic Dyspnea on exertion acute Paroxysmal atrial fibrillation acute Essential (primary) hypertension chronic Dyspnea on exertion acute Chronic diastolic CHF (congestive heart failure) chronic KIANNA (obstructive sleep apnea) chronic Diabetes chronic Obesity chronic Left carotid bruit acute Paroxysmal atrial fibrillation acute Essential (primary) hypertension [facility] Work Phone: Evaluation note* Diagnosis Onset Date Resolution Status Left carotid bruit acute Paroxysmal atrial fibrillation acute Essential (primary) hypertension chronic Diabetes chronic Essential (primary) hypertension chronic Obesity chronic Dyspnea on exertion acute Chronic diastolic CHF (congestive heart failure) chronic KIANNA (obstructive sleep apnea) chronic Dyspnea on exertion acute Left carotid bruit acute Paroxysmal atrial fibrillation acute Essential (primary) hypertension [facility] Work Phone: Evaluation note* Diagnosis Onset Date Resolution Status Diabetes chronic Essential (primary) hypertension chronic Obesity chronic Dyspnea on exertion acute Chronic diastolic CHF (congestive heart failure) chronic KIANNA (obstructive sleep apnea) chronic Dyspnea on exertion acute Left carotid bruit acute Paroxysmal atrial fibrillation acute Essential (primary) hypertension chronic Diabetes chronic Essential (primary) hypertension chronic Obesity [facility] Work Phone: Evaluation note* Diagnosis Onset Date Resolution Status Diabetes chronic Essential (primary) hypertension chronic Obesity chronic Dyspnea on exertion acute Chronic diastolic CHF (congestive heart failure) chronic KIANNA (obstructive sleep apnea) chronic Dyspnea on exertion acute Left carotid bruit acute Paroxysmal atrial fibrillation acute Essential (primary) hypertension chronic Diabetes chronic Essential (primary) hypertension chronic Obesity chronic Dyspnea on exertion acute Left carotid bruit acute Paroxysmal atrial fibrillation acute Essential (primary) hypertension [facility] Work Phone: Evaluation note* Diagnosis Onset Date Resolution Status Diabetes chronic Essential (primary) hypertension chronic Obesity chronic Left carotid bruit acute Paroxysmal atrial fibrillation acute Dyspnea on exertion chronic Essential (primary) hypertension chronic Left carotid bruit acute Paroxysmal atrial fibrillation acute Dyspnea on exertion chronic Essential (primary) hypertension chronic Chronic diastolic CHF (congestive heart failure) chronic Chronic respiratory failure with hypoxia chronic Dyspnea on exertion chronic Obesity chronic KIANNA (obstructive sleep apnea) chronic Diabetes chronic Hypothyroidism chronic Obesity [facility] Work Phone: Evaluation note* Diagnosis Onset Date Resolution Status Left carotid bruit acute Paroxysmal atrial fibrillation acute Dyspnea on exertion chronic Essential (primary) hypertension chronic Left carotid bruit acute Paroxysmal atrial fibrillation acute Dyspnea on exertion chronic Essential (primary) hypertension chronic Chronic diastolic CHF (congestive heart failure) chronic Chronic respiratory failure with hypoxia chronic Dyspnea on exertion chronic Obesity chronic KIANNA (obstructive sleep apnea) chronic Diabetes chronic Hypothyroidism chronic Obesity [facility] Work Phone: Evaluation note* Diagnosis Onset Date Resolution Status Left carotid bruit acute Paroxysmal atrial fibrillation acute Dyspnea on exertion chronic Essential (primary) hypertension chronic Left carotid bruit acute Paroxysmal atrial fibrillation acute Dyspnea on exertion chronic Essential (primary) hypertension chronic Chronic diastolic CHF (congestive heart failure) chronic Chronic respiratory failure with hypoxia chronic Dyspnea on exertion chronic Obesity chronic KIANNA (obstructive sleep apnea) chronic Diabetes chronic Hypothyroidism chronic Obesity chronic Vertigo acute [facility] Work Phone: Evaluation note* Diagnosis Onset Date Resolution Status Chronic diastolic CHF (congestive heart failure) chronic Chronic respiratory failure with hypoxia chronic Dyspnea on exertion chronic Obesity chronic KIANNA (obstructive sleep apnea) chronic Diabetes chronic Hypothyroidism chronic Obesity chronic Vertigo acute Diabetes chronic Essential (primary) hypertension chronic Insulin pump titration chron ic Obesity chronic Presence of insulin pump chr onic [facility] Work Phone: Evaluation note* Diagnosis Onset Date Resolution Status Vertigo acute Diabetes chronic Essential (primary) hypertension chronic Insulin pump titration chron ic Obesity chronic Presence of insulin pump chr onic Carotid stenosis acute Double vision acute Left carotid bruit acute Vertigo acute [facility] Work Phone: Evaluation note* Diagnosis Onset Date Resolution Status Carotid stenosis acute Double vision acute Left carotid bruit acute Vertigo acute Post op infection acute Thyroid nodule acute CKD (chronic kidney disease) chronic Diabetes chronic Hypothyroidism chronic Microalbuminuria chronic Obesity chronic Multiple thyroid nodules acu [facility] Work Phone: Evaluation note* Diagnosis Onset Date Resolution Status Post op infection acute Thyroid nodule acute CKD (chronic kidney disease) chronic Diabetes chronic Hypothyroidism chronic Microalbuminuria chronic Obesity chronic Multiple thyroid nodules acu te CKD (chronic kidney disease) chronic Diabetes chronic Hypothyroidism chronic Microalbuminuria chronic Neuropathy chronic Obesity [facility] Work Phone: Evaluation note* Diagnosis Onset Date Resolution Status Post op infection acute Thyroid nodule acute CKD (chronic kidney disease) chronic Diabetes chronic Hypothyroidism chronic Microalbuminuria chronic Obesity chronic Multiple thyroid nodules acu te CKD (chronic kidney disease) chronic Diabetes chronic Hypothyroidism chronic Microalbuminuria chronic Neuropathy chronic Obesity chronic Left carotid bruit acute Paroxysmal atrial fibrillation acute Dyspnea on exertion chronic Essential (primary) hypertension chronic [facility] Work Phone: Evaluation note* Diagnosis Onset Date Resolution Status Post op infection acute Thyroid nodule acute CKD (chronic kidney disease) chronic Diabetes chronic Hypothyroidism chronic Microalbuminuria chronic Obesity chronic Multiple thyroid nodules acu te CKD (chronic kidney disease) chronic Diabetes chronic Hypothyroidism chronic Microalbuminuria chronic Neuropathy chronic Obesity chronic Left carotid bruit acute Paroxysmal atrial fibrillation acute Dyspnea on exertion chronic Essential (primary) hypertension chronic Multiple thyroid nodules acu [facility] Work Phone: Evaluation note* Diagnosis Onset Date Resolution Status Post op infection acute Thyroid nodule acute CKD (chronic kidney disease) chronic Diabetes chronic Hypothyroidism chronic Microalbuminuria chronic Obesity chronic Multiple thyroid nodules acu te CKD (chronic kidney disease) chronic Diabetes chronic Hypothyroidism chronic Microalbuminuria chronic Neuropathy chronic Obesity chronic Left carotid bruit acute Paroxysmal atrial fibrillation acute Dyspnea on exertion chronic Essential (primary) hypertension chronic Multiple thyroid nodules acu te Polyneuropathy acute Hyperlipidemia chronic [facility] Work Phone: Evaluation note* Diagnosis Onset Date Resolution Status Multiple thyroid nodules acu te CKD (chronic kidney disease) chronic Diabetes chronic Hypothyroidism chronic Microalbuminuria chronic Neuropathy chronic Obesity chronic Left carotid bruit acute Paroxysmal atrial fibrillation acute Dyspnea on exertion chronic Essential (primary) hypertension chronic Multiple thyroid nodules acu te History of TIA (transient ischemic attack) acute Ischemic cerebrovascular accident (CVA) acute Peripheral vestibulopathy ac [place] Polyneuropathy acute Hyperlipidemia chronic Double vision resolved [facility] Work Phone: Evaluation note* Diagnosis Onset Date Resolution Status CKD (chronic kidney disease) chronic Diabetes chronic Hypothyroidism chronic Microalbuminuria chronic Neuropathy chronic Obesity chronic Left carotid bruit acute Paroxysmal atrial fibrillation acute Dyspnea on exertion chronic Essential (primary) hypertension chronic Multiple thyroid nodules acu te History of TIA (transient ischemic attack) acute Ischemic cerebrovascular accident (CVA) acute Peripheral vestibulopathy ac [place] Polyneuropathy acute Hyperlipidemia chronic Double vision resolved [facility] Work Phone: Evaluation note* Diagnosis Onset Date Resolution Status Left carotid bruit acute Paroxysmal atrial fibrillation acute Dyspnea on exertion chronic Essential (primary) hypertension chronic Multiple thyroid nodules acu te History of TIA (transient ischemic attack) acute Ischemic cerebrovascular accident (CVA) acute Peripheral vestibulopathy ac [place] Polyneuropathy acute Hyperlipidemia chronic Double vision resolved CKD (chronic kidney disease) chronic Diabetes chronic Essential (primary) hypertension chronic Hypothyroidism chronic Neuropathy chronic Obesity chronic Carotid stenosis acute History of TIA (transient ischemic attack) acute Ischemic cerebrovascular accident (CVA) acute Polyneuropathy acute [facility] Work Phone: Evaluation note* Diagnosis Onset Date Resolution Status CKD (chronic kidney disease) chronic Diabetes chronic Essential (primary) hypertension chronic Hypothyroidism chronic Neuropathy chronic Obesity chronic History of TIA (transient ischemic attack) acute Ischemic cerebrovascular accident (CVA) acute Polyneuropathy acute Carotid stenosis chronic Carotid stenosis chronic Carotid stenosis chronic [facility] Work Phone: Evaluation note* Diagnosis Cerebrovascular accident (CVA), unspecified mechanism (HCC)- Primary Cerebrovascular accident (CVA), unspecified mechanism (HCC) documented in this encounter [facility]* Diagnosis Bilateral carotid artery stenosis- Primary Occlusion and stenosis of carotid artery without mention of cerebral infarction Ischemic cerebrovascular accident (CVA) (HCC) documented in this encounter [facility] note* Diagnosis Chronic kidney disease, unspecified CKD stage- Primary documented in this encounter [facility] note* Diagnosis Ischemic cerebrovascular accident (CVA) (HCC)- Primary Bilateral carotid artery stenosis Occlusion and stenosis of carotid artery without mention of cerebral infarction [facility]* Diagnosis Bilateral carotid artery occlusion Occlusion and stenosis of carotid artery without mention of cerebral infarction [facility]* Diagnosis Cerebrovascular accident (CVA), unspecified mechanism (HCC)- Primary Bilateral carotid artery stenosis Occlusion and stenosis of carotid artery without mention of cerebral infarction documented in this encounter [facility] note* Diagnosis Ischemic cerebrovascular accident (CVA) (HCC) Bilateral carotid artery stenosis Occlusion and stenosis of carotid artery without mention of cerebral infarction documented in this encounter [facility] note* Diagnosis Bilateral carotid artery stenosis- Primary Occlusion and stenosis of carotid artery without mention of cerebral infarction [facility]* Diagnosis ILD (interstitial lung disease) (Multi)- Primary Postinflammatory pulmonary fibrosis Pulmonary hypertension (Multi) Other chronic pulmonary heart diseases Chronic respiratory failure with hypoxia documented in this encounter [facility] Work Phone: Evaluation note* Diagnosis ILD (interstitial lung disease) (Multi) Postinflammatory pulmonary fibrosis documented in this encounter [facility] Work Phone: Evaluation note* Diagnosis Pulmonary hypertension (Multi) Other chronic pulmonary heart diseases documented in this encounter [facility] Work Phone: Evaluation note* Diagnosis ILD (interstitial lung disease) (Multi) Postinflammatory pulmonary fibrosis documented in this encounter [facility] Work Phone: Evaluation note* Diagnosis ILD (interstitial lung disease) (Multi)- Primary Postinflammatory pulmonary fibrosis Chronic respiratory failure with hypoxia KIANNA (obstructive sleep apnea) Obstructive sleep apnea (adult) (pediatric) BMI 40.0-44.9, adult (Multi) Diastolic heart failure, unspecified HF chronicity documented in this encounter [facility] Work Phone: Evaluation note* Diagnosis ILD (interstitial lung disease) (Multi) Postinflammatory pulmonary fibrosis documented in this encounter [facility] Work Phone: Evaluation note* Diagnosis ILD (interstitial lung disease) (Multi)- Primary Postinflammatory pulmonary fibrosis Chronic respiratory failure with hypoxia KIANNA (obstructive sleep apnea) Obstructive sleep apnea (adult) (pediatric) BMI 40.0-44.9, adult (Multi) Diastolic heart failure, unspecified HF chronicity documented in this encounter [facility] Work Phone: Evaluation note* Diagnosis ILD (interstitial lung disease) (Multi) Postinflammatory pulmonary fibrosis documented in this encounter [facility] Work Phone: History of Present illness Narrative* Rosalino Padron MD - 08/28/2024 1:00 PM EDT Images from the original note were not included. Department of Medicine Division of Pulmonary, Critical Care, and Sleep Medicine Consultation [address] [facility] Patient was referred by his PCP (Dr. Radha Peace) to evaluate for ILD. I have independently interviewed and examined the patient in the office and reviewed available records. Physician HPI : (06/26/2024) At baseline, patient has dyspnea on exertion, but none at rest. The dyspnea on exertionstarted many years ago, but progressing over the last few months. Patient mostly inactive in everyday life, works inside the house but does not engage in any form ofexercise or demanding physical activity. Patient is too breathless to leave the house or breathless when dressing and undressing. Denies orthopnea, pnd, or esmer. Weight has been mostly stable. Patient also relates occasional chronic cough, but no sputum. No night cough. No hemoptysis. No fever or shivering chills. Denies chest pain or heartburn. 08/07/2024: Since his last visit, he felt that his breathing was worsening around June. We prescribed him a course of prednisone. He noted significant improvement in his symptoms. However with the tapering of the prednisone his symptoms continued to worsen again. He is still pending evaluation for mold at home. Company is coming in to check and evaluate on Saturday. No hospital admissions or ED visits. No new chest pain, cough, sputum, fever, chills or night sweats. He had a repeat high-resolution CT scan, breathing test, walking test, echocardiogram done (results below). 08/28/2024: Since the last visit, patient's breathing has been improving. No hospital admissions or ED visits. No new chest pain, cough, sputum, fever, chills or night sweats. He is currently on 20 mgof prednisone, and tolerating it pretty well. He did have the house checked out for mold. The results are still pending. He will send him when he has them. He is still pending scheduling for his cardiac biopsy. He called to schedule pulmonary rehab but does not have a start date yet. He is on 4 L at rest and 8 L with exertion. He is planned to travel in 1 week. Patient had repeat breathing test, 6MWT (results below). Prior Pulmonary History: Patient has no history of recurrent infections, or lung disease as a child. S/p Left video-assistedthoracoscopic surgery total pulmonary decortication in 2015 at [facility]. He was hospitalized in [place] from 03/02-03/04/2024 for acute hypoxic respiratory failure. Chest imaging history (I have personally reviewed the images below and this is my interpretation) 07/20/2024 HRCT with subpleural reticulation and GGO as well as significant mosaicisim, mostly diffuse and no clear honeycombing. Indeterminate for UIP 03/03/2024 CT chest w/o contrast (only report available) with diffuse fibrotic changes with honeycombing. Chronic bronchitis. 1.8cm liver nodule (stable compared to 2023) PFTs: 08/18/2024 -> Ratio of 0.87/FEV1 2.27L (76%) (no BD response)/FVC 2.6L (69%)/DLCO 34% 07/20/2024 -> Ratio of 0.59/FEV1 2.3L (67%)(no BD response)/FVC 2.69L (61%)/DLCO 36% 05/15/2024 -> Ratio of 0.87/FEV1 2.19L (63%)(no BD response)/FVC 2.52L (56%)/TLC 3.9L (57%)/RVtoTLC ratio 0.35/DLCO 36->67% 6MWTs: 08/18/2024 ->on 8L, 130m. Peak SpO2 of 100%. Francisco SpO2 90%. 07/20/2024 ->on 8L, 137m. Peak SpO2 of 95%. Francisco SpO2 85%. 04/09/2024 ->on 6L NC, 72m. Peak SpO2 of 95%. Francisco SpO2 88%. Echocardiogram: 07/20/2024 -> Normal EF, grade 1 diastolic dysfunction, difficult windows, unable to assess LA, RV size and function Lung biopsy: None done Relevant labs: Elevated RF at OSH 07/23/2024 RF of 41 but negative anti-CCP, negative HP panel, extended myositis panel Hospitalization History: Has not been hospitalized over the last year for breathing related problem. Past Medical History: Afib on anticoagulation Social History: Social History Socioeconomic History Marital status: Tobacco Use Smoking status: Never Substance and Sexual Activity Alcohol use: Never Drug use: Never Occupational exposure: No known exposure to asbestos silica or beryllium. Evaluated for below and negative except highlighted in red. Occupational exposure (longest held job): Epoxies; isocyanates; pesticides; hay/silage; wheat flour; wood dust or natural fibres; animal products (hair, fur, dander, waste); birds (including feathers, down); insect cultivation; sea shells; water humidification systems (including water features, swamp coolers); mouldy/water-damaged workplace; metal cooling fluids; metal dust or fumes; sand/stone/concrete dust Home based exposures (last 5 years): Water-damaged or mouldy environment; water humidification systems (including water features, swamp coolers, desert coolers); hot tub or sauna; feather bedding; domestic animals (including birds, mammals, fish tanks, insects) Hobby exposures or avocations (last 5 years): Hunting; fly fishing; jewellery polishing; working with shells; woodworking; weaving, working with fibres; gardening, composting. CTD evaluation: No hx of joint pain/swelling, skin rashes, Raynaud's, sicca syndrome, eye redness, muscle pain and weakness, difficulty swallowing. Family History: No family history of lung diseases or cancer. Immunization History: Immunization History Administered Date(s) Administered Moderna SARS-CoV-2 Vaccination 06/10/2020, 07/08/2020 Current Medications: Medication Documentation Review Audit Reviewed by Heavenly Sparks MA ([employer]) on 08/28/24 at 1158 Medication Order Taking? Sig Documenting Provider Last Dose Status albuterol 90 mcg/actuation inhaler [id number] INHALE 2 PUFFS BY MOUTH EVERY 4 HOURS NEEDED FOR SHORTNESS OF BREATH OR WHEEZING Historical Provider, Active amLODIPine (Norvasc) 5 mg tablet [id number] Take 1 tablet (5 mg) by mouth once daily. Historical ProviderMD Active aspirin 325 mg tablet [id number] Take 1 tablet (325 mg) by mouth once daily. Historical ProviderLORNActive atorvastatin (Lipitor) 80 mg tablet [id number] Take 1 tablet (80 mg) by mouth once daily at bedtime.Historical ProviderMD Active betamethasone, augmented, (Diprolene) 0.05 % lotion [id number] APPLY TO RASH ON THE TRUNK OR SCALP 1-2 TIMES DAILY NEEDED Historical ProviderMD Active bismuth subsalicylate (Pepto Bismol) 262 mg chewable tablet [id number] CHEW AND SWALLOW 2 TABLETS BYMOUTH 3 TIMES A DAY for 2 weeks. max 16 tablets per 24 hours Patient not taking: Reported on 08/07/2024 Historical ProviderMD Active Brilinta 90 mg tablet [id number] 1 tablet (90 mg). Historical ProviderMD Active busPIRone (Buspar) 10 mg tablet [id number] Take 1 tablet (10 mg) by mouth 3 times a day. Historical ProviderMD Active clopidogrel (Plavix) 75 mg tablet [id number] Take 1 tablet (75 mg) by mouth early in the morning.. Historical ProviderMD Active dapagliflozin propanediol (Farxiga) 5 mg [id number] Take 1 tablet (5 mg) by mouth once daily. Historical ProviderMD Active Dexcom G6 Sensor device [id number] USE DIRECTED FOR CONTINUOUS BLOOD GLUCOSE MONITORING, CHANGE SENSOR EVERY 10 DAYS Historical ProviderMD Active DULoxetine (Cymbalta) [address] capsule [id number] Take 1 capsule (60 mg) by mouth once daily. Historical ProviderMD Active Eliquis 5 mg tablet [id number] Take 1 tablet (5 mg) by mouth 2 times a day. Gloria ProviderMD Active ergocalciferol (Vitamin D-2) 1250 mcg (50,000 units) capsule [id number] Take 1 capsule (1,250 mcg) by mouth. Gloria Rahman MD Active fenofibrate (Tricor) 54 mg tablet [id number] Take 1 tablet (54 mg) by mouth once daily. Gloria ProviderMD Active furosemide (Lasix) 40 mg tablet [id number] Take 1 tablet (40 mg) by mouth. Gloria Rahman MD Active glimepiride (Amaryl) 4 mg tablet [id number] Take 1 tablet (4 mg) by mouth early in the morning.. Patient not taking: Reported on 08/07/2024 Gloria Rahman MD Active glipiZIDE (Glucotrol) 5 mg tablet [id number] Take 1 tablet (5 mg) by mouth. Patient not taking: Reported on 08/07/2024 Gloria Rahman MD Active HumuLIN R U-500, Conc, Insulin 500 unit/mL CONCENTRATED injection [id number] INJECT 75 UNITS DAILY VIA CONTINUOUS SUBCUTANEOUS INFUSION. DISCARD VIAL AFTER 40 DAYS Patient not taking: Reported on 08/07/2024 Gloria Rahman MD Active Jardiance 25 mg [id number] Take 1 tablet (25 mg) by mouth once daily. Historical MD Lacey Active levothyroxine (Synthroid, Levoxyl) 112 mcg tablet [id number] Take 1 tablet (112 mcg) by mouth once daily. Gloria Rahman MD Active lisinopril 40 mg tablet [id number] Take 1 tablet (40 mg) by mouth once daily. Historical ProviderMD Active metFORMIN (Glucophage) 500 mg tablet [id number] Take 1 tablet (500 mg) by mouth 2 times daily (morning and late afternoon). Gloria Rahman MD Active metoprolol succinate XL (Toprol-XL) 100 mg 24 hr tablet [id number] TAKE 1 TABLET BY MOUTH DAILY for heart Historical ProviderMD Active Mucinex DM 60-1,200 mg tablet extended release 12 hr [id number] Take 1 tablet by mouth every 12 hours. Gloria ProviderMD Active oxyCODONE-acetaminophen (Percocet) 5-325 mg tablet [id number] Take 1 tablet by mouth 2 times a day as needed. Patient not taking: Reported on 08/07/2024 Historical MD Lacey Active pantoprazole (ProtoNix) 40 mg EC tablet [id number] Take 1 tablet (40 mg) by mouth. Historical ProviderMD Active potassium citrate CR (Urocit-K-10) 10 mEq ER tablet [id number] Take 1 tablet (10 mEq) by mouth twicea day. Historical MD Lacey Active predniSONE (Deltasone) 20 mg tablet [id number] Take 0.5 tablets (10 mg) by mouth early in the morning.. Historical MD Lacey Active predniSONE (Deltasone) 20 mg tablet [id number] Take 2 tablets (40 mg) by mouth once daily. Patient not taking: Reported on 08/07/2024 Rosalino Padron MD Active predniSONE (Deltasone) 5 mg tablet [id number] Take 4 tablets (20 mg) by mouth once daily for 30 days, THEN 3 tablets (15 mg) once daily for 30 days, THEN 2 tablets (10 mg) once daily for 30 days, THEN1 tablet (5 mg) once daily for 14 days. Rosalino Padron MD Active spironolactone (Aldactone) 50 mg tablet [id number] Take 1 tablet (50 mg) by mouth once daily. Patient not taking: Reported on 08/07/2024 Historical MD Lacey Active tamsulosin (Flomax) 0.4 mg 24 hr capsule [id number] Take 1 capsule (0.4 mg) by mouth once daily. Historical MD Lacey Active traMADol (Ultram) 50 mg tablet [id number] Take 1 tablet (50 mg) by mouth. Historical ProviderMD Active Drug Allergies/Intolerances: Allergies Allergen Reactions Metoclopramide Anaphylaxis and Shortness of breath Review of Systems: All other review of systems are negative and/or non-contributory. Physical Examination: There were no vitals filed for this visit. Constitutional: Alert and oriented. In no acute distress. Well developed, well nourished. Head and Face: Normal. Palpation of the face and sinuses: normal. Ear, Nose and throat: External inspection of the ear and nose: normal. Oropharynx: normal. Neck: Supple. No neck mass observed. Pulmonary: Chest is normal to inspection. No increased work of breathing or signs of respiratory distress. Normal auscultation. CV: Heart rate and rhythm were normal. Normal S1 and S2, no gallops, no murmurs and no pericardial rub. No peripheral edema. Abdomen: soft, nontender, no abdominal mass palpated. Lymphatic: no cervical lad. MSK: normal gait and station. No clubbing or cyanosis of the fingernails. Skin: Normal skin color and pigmentation, normal skin turgor, and no rash. Neurologic: Cranial nerves intact. Moving all 4 extremities. Psychiatric: Intact judgement and insight. Assessment and Plan / Recommendations: # ILD evaluation: -No known occupational exposure or exposure to suspect medication. -Concern for mold at home. Discussed inspection by professional company. Evaluation pending -Initially thought related to RA however unclear if he truly has RA. He has a positive RF at 39, negative CCF and no joint inflammation or stiffness. Will consider full rheum evaluation in the future -HRCT indeterminate for UIP. Mosaic attenuation concerning more for HP -Too high risk for VATS given high O2 requirement, plan for cryobiospy with Dr. Coleman after September 11 (since he is traveling) -will treat empirically for prednisone as below -Workup for rheumatologic disease including RF, anti-ccp, RICARDO with reflex NEELA, ANCA, ESR, CRP, CPK,aldolase, myositis ab panel done and mostly negative outside of RF of 41 -will refer to pulmonary rehab on 08/08/2023. Pending start -Discussed antifibrotic therapy. Not a good candidate for Ofev given the need anticoagulation. Willdiscuss Esbriet on follow as well as clinical trial participation -Evaluation for comorbidities (KIANNA, GERD, aspiration, CAD, lung cancer screening etc.) as below -Vaccinations per his pcp -Home evaluation for home completed and results pending # Prednisone therapy: Ordered on 08/07/2024. He felt well on 20mg daily. We will prescribed 20mg for 1 month, 15mg for 1month, 10mg for 1 month, then 5 mg for 2 weeks then stop # Diastolic Heart failure and PAH evaluation: -difficult to assess volume status given body habitus -will obtain echocardiogram to screen for PAH # Chronic hypoxic respiratory failure: -needs 4L at rest and 8L with exertion -multifactorial # KIANNA: -not compliant with his PAP therapy Encourage to be more compliant with his PAP # Obesity: -BMI > 40 Encouraged weight loss Follow-up: 2-3 months once above completed Rosalino Padron MD 08/28/2024 [facility]: Hospital course Narrative No data available for this section [facility] Discharge instructions No data available for this section [facility] Discharge instructions* Attachments The following attachments cannot be sent through Care Everywhere. * Arteriogram Discharge Instructions (Moroccan) documented in this [facility]* Attachments The following attachments cannot be sent through Care Everywhere. * Risk Factors for Stroke (Moroccan) * Stroke (Moroccan) * Carotid Artery Disease (Moroccan) documented in this [facility]* Patient Instructions* Rosalino Padron MD - 08/28/2024 1:00 PM EDT Krunal Leos it was pleasure seeing you in clinic today. We discussed the following: You will call back to schedule your pulmonary rehab You will continue to use your incentive spirometer at home You will send my office the results of the mold evaluation. I will follow up to make sure that you are scheduled for the lung biopsy I will give you a prescription for supplemental O2 for your trip. You will continue your prednisone taper like we discussed. You will watch for signs of prednisone withdrawal which are as follow: loss of appetite, abdominal pain, nausea, vomiting, diarrhea, extremefatigue, weakness, lightheadedness, body aches, and a drop in your blood pressure. If any of these symptoms occur, you will take an extra dose of the prednisone and call my office immediately We will see you back in clinic in 2-3 months with repeat breathing test and walking test. For scheduling purposes: Call to schedule a breathing or a walking test Call [phone] to schedule EKG's, Echocardiograms and Cardiopulmonary Stress Tests. Call [phone] to schedule Radiology tests such as Nuclear Medicine Stress Tests, CT Scans, and MRI's. Should you have any questions Please Call our pulmonary nurse Linda Marie at [phone] or my carpenter's assistant Puneet Leone at [phone] [facility] Work Phone: Reason for referral (narrative)No reason for referral information availableWAdams [facility] Work Phone: Reason for visit Narrative* Imaging (Routine) - Closed Specialty Diagnoses / Procedures Referred By Contac t Referred To Contact Radiology Diagnoses Bilateral carotid artery stenosis Ischemic cerebrovascular accident (CVA) (HCC) Procedures CTA head neck angio w and wo IV contrast Oziel Culp MD [address] [place] [address] Phone: tel: fax: Referral ID Status Reason Start Date Expiration Date Visits Re quested Visits Authorized [id number] Closed 01/06/2024 01/05/2025 1 1 [facility] HealthReason for visit Narrative* Imaging (Routine) - Closed Specialty Diagnoses / Procedures Referred By Contac t Referred To Contact Cardiology Diagnoses Bilateral carotid artery occlusion Procedures Vascular US carotid artery duplex bilateral Suzy Jauregui MD [address] [place] [address] Phone: tel: fax: Referral ID Status Reason Start Date Expiration Date Visits Re quested Visits Authorized [id number] Closed 10/15/2023 10/14/2024 1 1 [facility] [id number] for visit Narrative* Imaging (Routine) - Closed Specialty Diagnoses / Procedures Referred By Contac t Referred To Contact Radiology Diagnoses Ischemic cerebrovascular accident (CVA) (HCC) Bilateral carotid artery stenosis Procedures IR angiogram cerebral with possible intervention Mey Loya, STAFF AIR DEFENSE OFFICER - LEGISLATIVE CORRESPONDENT [address] [place] [address] Phone: tel: fax: Referral ID Status Reason Start Date Expiration Date Visits Re quested Visits Authorized [id number] Closed 02/13/2024 02/12/2025 1 1 [facility] for visit Narrative* Imaging (Routine) - Authorized Specialty Diagnoses / Procedures Referred By Contac t Referred To Contact Radiology Diagnoses ILD (interstitial lung disease) (Multi) Procedures [place] [address] [place] [address] Phone: tel: fax: Referral ID Status Reason Start Date Expiration Date Visits Requested Visits Authorized [id number] Authorized Perform Procedure 06/26/2024 06/26/2025 1 1 [facility] Work Phone: reason for visit Narrative* CV Imaging (Routine) - Authorized Specialty Diagnoses / Procedures Referred By Contac t Referred To Contact Cardiology Diagnoses Pulmonary hypertension (Multi) Procedures Transthoracic Echo (TTE) Complete AL ECHO TTHRC R-T 2D W/WOM-MODE COMPL SPEC&[place] [address] [place] [address] Phone: tel: fax: Referral ID Status Reason Start Date Expiration Date Visits Requested Visits Authorized [id number] Authorized Perform Procedure 06/26/2024 06/26/2025 1 1 [facility] Work Phone: reason for visit Narrative* PFT (Routine) - Pending Review Specialty Diagnoses / Procedures Referred By Contac t Referred To Contact Diagnoses ILD (interstitial lung disease) (Multi) Procedures Pulmonary Stress Test (6 Min. Walk) [place] [address] [place] [address] Phone: tel: fax: Referral ID Status Reason Start Date Expiration Date V isits Requested Visits Authorized [id number] Pending Review 06/26/2024 06/26/2025 1 1 [facility] Work Phone: reason for visit Narrative* PFT (Routine) - Pending Review Specialty Diagnoses / Procedures Referred By Contac t Referred To Contact Diagnoses ILD (interstitial lung disease) (Multi) Procedures Complete Pulmonary Function Test (Spirometry/DLCO/Lung Volumes) Rosalino Padron MD [address] [place] [address] Phone: tel: fax: Referral ID Status Reason Start Date Expiration Date V isits Requested Visits Authorized [id number] Pending Review 06/26/2024 06/26/2025 1 1 [facility] Work Phone: reason for visit Narrative* PFT (Routine) - Pending Review Specialty Diagnoses / Procedures Referred By Contac t Referred To Contact Diagnoses ILD (interstitial lung disease) (Multi) Procedures Spirometry Pre/Post Bronchodilator Rosalino Padron MD [address] [place] [address] Phone: tel: fax: Referral ID Status Reason Start Date Expiration Date V isits Requested Visits Authorized [id number] Pending Review 08/07/2024 08/07/2025 1 1 [facility] Work Phone: reason for visit Narrative* PFT (Routine) - Pending Review Specialty Diagnoses / Procedures Referred By Contac t Referred To Contact Diagnoses ILD (interstitial lung disease) (Multi) Procedures Pulmonary Stress Test (6 Min. Walk) Rosalino Padron MD [address] [place] [address] Phone: tel: fax: Referral ID Status Reason Start Date Expiration Date V isits Requested Visits Authorized [id number] Pending Review 08/07/2024 08/07/2025 1 1 [facility] Work Phone: reason for visit Narrative* PFT (Routine) - Pending Review Specialty Diagnoses / Procedures Referred By Contac t Referred To Contact Diagnoses ILD (interstitial lung disease) (Multi) Procedures DLCO / Diffusion Capacity Rosalino Padron MD [address] [place] [address] Phone: tel: fax: Referral ID Status Reason Start Date Expiration Date V isits Requested Visits Authorized [id number] Pending Review 08/07/2024 08/07/2025 1 1 [facility] Work Phone: Reason for visit Narrative* Endoscopy (Routine) - Authorized Specialty Diagnoses / Procedures Referred By Contac t Referred To Contact Gastroenterology Diagnoses ILD (interstitial lung disease) (Multi) Procedures Bronchoscopy Tier 2; w BAL, [place] [address] [place] [address] Phone: tel: fax: Referral ID Status Reason Start Date Expiration Date V isits Requested Visits Authorized [id number] Authorized 08/11/2024 08/11/2025 1 1 [facility] Work Phone: Summary Purpose Family History No Family History Records Found Relationship Condition Age at Onset Recorded Date/T edgar Not Specified Diabetes mellitus Unknown Alcohol abuse Unknown Arthritis Unknown Cerebrovascular accident (CVA) Unknown Unknown brother Cardiac disease Unknown Relationship Condition Age at Onset Recorded Date/T edgar Not Specified Alcohol abuse Unknown Unknown brother Cardiac disease Unknown mother Cerebrovascular accident (CVA) Unknown Hypertension Unknown Rheumatoid arthritis Unknown father Diabetes mellitus Unknown Advance Directives No Advanced Directives Records FoundDocuments on File Type Date Recorded 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 Advance Directive(s) 08/19/2015 12:10 PM Advance Directive(s) 09/10/2015 4:56 PM Advance Directive Response Recorded Date/ Time Name of Medical Power of Sizing Sprayer Tia Leos/w awais June 19, 2021 11:06am Advance Directives Yes September 08 3:58am Living Will No July 16, 2021 2:23pm Power of Sizing Sprayer No July 16 2:23pm Advance Directive Response Recorded Date/ Time Name of Medical Power of Sizing Sprayer Tia Leos/segundo awais June 19, 2021 11:06am Advance Directives Yes September 08 3:58am Living Will Yes September 04, 2021 6 :29am Power of Sizing Sprayer Yes September 04, 2021 6:29am Advance Directive Response Recorded Date/ Time Name of Medical Power of Sizing Sprayer Tia Leos/w awais June 19, 2021 11:06am Name of Medical Power of Sizing Sprayer tia leos September 04, 2021 6:29am Advance Directives Yes September 08 3:58am Living Will Yes September 04, 2021 6 :29am Power of Sizing Sprayer Yes September 04, 2021 6:29am Advance Directive Response Recorded Date/ Time Advance Directives Yes September 08 2:58am Living Will Yes September 04, 2021 5 :29am Power of Sizing Sprayer Yes September 04, 2021 5:29am Advance Directive Response Recorded Date/ Time Advance Directives on File Yes 2022 8:42am Name of Medical Power of Sizing Sprayer Tia () May 09, 2022 8:42am Advance Directives Yes May 09, 2022 8:42am Living Will Yes May 09 8:42am Power of Sizing Sprayer Yes May 09, 2022 8:42am Advance Directive Response Recorded Date/ Time Advance Directives on File Yes 2022 9:42am Name of Medical Power of Sizing Sprayer Tia () May 09, 2022 9:42am Advance Directives Yes May 09, 2022 9:42am Living Will Yes May 09 9:42am Power of Sizing Sprayer Yes May 09, 2022 9:42am Advance Directive Response Recorded Date/ Time Advance Directives on File Yes 2022 9:42am Name of Medical Power of Sizing Sprayer Tia () May 09, 2022 9:42am Name of Medical Power of Sizing Sprayer tia [facility] [phone] August 02, 2022 12:47am Advance Directives Yes May 09, 2022 9:42am Living Will Yes August 02, 2022 12 :47am Power of Sizing Sprayer Yes August 02, 2022 12:47am Advance Directive Response Recorded Date/ Time Name of Medical Power of Sizing Sprayer tia [facility]3 [phone] August 02, 2022 12:47am Advance Directives Yes May 09, 2022 9:42am Living Will Yes August 02, 2022 12 :47am Power of Sizing Sprayer Yes August 02, 2022 12:47am Advance Directive Response Recorded Date/ Time Advance Directives Yes May 09, 2022 9:42am Living Will Yes August 02, 2022 12 :47am Power of Sizing Sprayer Yes August 02, 2022 12:47am Advance Directive Response Recorded Date/ Time Name of Medical Power of Sizing Sprayer TIA February 14, 2023 9:43am Advance Directives Yes May 09, 2022 8:42am Living Will Yes February 14, 9:43am Power of Sizing Sprayer Yes February 14, 2023 9:43am Advance Directive Response Recorded Date/ Time Name of Medical Power of Sizing Sprayer TIA February 14, 2023 10:43am Advance Directives Yes May 09, 2022 9:42am Living Will Yes February 14, 10:43am Power of Sizing Sprayer Yes February 14, 2023 10:43am Advance Directive Response Recorded Date/ Time Advance Directives Yes May 09, 2022 9:42am Living Will Yes February 14 10:43am Power of Sizing Sprayer Yes February 14, 2023 10:43am Documents on File Type Date Recorded 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 Yes February 14, 2023 10:43am Living Will Yes November 15 11:41am Do you have a Healthcare Power of Sizing Sprayer? Yes November 16, 2023 11:41am Living Will Yes January 20 4:34am Do you have a Healthcare Power of Sizing Sprayer? Yes January 21, 2024 4:34am Advance Directives Yes April 30, 2024 10:06am Living Will Yes April 12 3:26pm Do you have a Healthcare Power of Sizing Sprayer? Yes April 12, 2024 3:26pm Name of Medical Power of Sizing Sprayer - TIA April 12, 2024 3:26pm Living Will Yes April 24 10:37pm Do you have a Healthcare Power of Sizing Sprayer? Yes April 24, 2024 10:37pm Name of Medical Power of Sizing Sprayer tia April 24, 2024 10:37pm Advance Directive Response Recorded Date/ Time Living Will Yes February 14 10:43am Do you have a Healthcare Power of Sizing Sprayer? Yes February 14, 2023 10:43am Living Will Yes November 15 11:41am Do you have a Healthcare Power of Sizing Sprayer? Yes November 16, 2023 11:41am Living Will Yes January 20 4:34am Do you have a Healthcare Power of Sizing Sprayer? Yes January 21, 2024 4:34am Advance Directives Yes April 30, 2024 10:06am Living Will Yes April 24 10:37pm Do you have a Healthcare Power of Sizing Sprayer? Yes April 24, 2024 10:37pm Name of Medical Power of Sizing Sprayer tia April 24, 2024 10:37pm Advance Directive Response Recorded Date/ Time Living Will Yes February 14 10:43am Do you have a Healthcare Power of Sizing Sprayer? Yes February 14, 2023 10:43am Living Will Yes January 20 4:34am Do you have a Healthcare Power of Sizing Sprayer? Yes January 21, 2024 4:34am Advance Directives Yes April 30, 2024 10:06am Living Will Yes April 24 10:37pm Do you have a Healthcare Power of Sizing Sprayer? Yes April 24, 2024 10:37pm Name of Medical Power of Sizing Sprayer tia April 24, 2024 10:37pm Advance Directive Response Recorded Date/ Time Advance Directives Yes April 30, 2024 10:06am Chief Complaint and Reason for Visit Chief Complaint 4 M FU UNSTABLE ANGINA, SOB UNSTABLE ANGINA, SOB UNSTABLE ANGINA, SOB UNSTABLE ANGINA, SOB UNSTABLE ANGINA, SOB HYPOXIA HYPOXIA HYPOXIA 1 M FU 9 m fu/[address] [place] [address] fu Shortness of breath dizziness Reason for Visit Diabetes Essential (primary) hypertension Hyperlipidemia Obesity Essential (primary) hypertension Hyperlipidemia Acidosis, lactic Acute respiratory failure with hypoxia New onset of congestive heart failure Diabetes Obesity Dyspnea on exertion Paroxysmal atrial fibrillation Essential (primary) hypertension Dyspnea on exertion Chronic diastolic CHF (congestive heart failure) KIANNA (obstructive sleep apnea) Chief Complaint 4 M FU UNSTABLE ANGINA, SOB UNSTABLE ANGINA, SOB UNSTABLE ANGINA, SOB UNSTABLE ANGINA, SOB UNSTABLE ANGINA, SOB HYPOXIA HYPOXIA HYPOXIA 1 M FU [address] fu Shortness of breath dizziness KIANNA; LM 08/04 & 08/07 6 wk FU CP, PROB ACS Reason for Visit Diabetes Essential (primary) hypertension Hyperlipidemia Obesity Essential (primary) hypertension Hyperlipidemia Acidosis, lactic Acute respiratory failure with hypoxia New onset of congestive heart failure Diabetes Obesity Dyspnea on exertion Paroxysmal atrial fibrillation Essential (primary) hypertension Dyspnea on exertion Chronic diastolic CHF (congestive heart failure) KIANNA (obstructive sleep apnea) Diabetes Obesity Chief Complaint 4 M FU UNSTABLE ANGINA, SOB UNSTABLE ANGINA, SOB UNSTABLE ANGINA, SOB UNSTABLE ANGINA, SOB UNSTABLE ANGINA, SOB HYPOXIA HYPOXIA HYPOXIA 1 M FU [address] fu Shortness of breath dizziness KIANNA; LM 08/04 & 08/07 6 wk FU CP, PROB ACS CP, PROB ACS Reason for Visit Diabetes Essential (primary) hypertension Hyperlipidemia Obesity Essential (primary) hypertension Hyperlipidemia Acidosis, lactic Acute respiratory failure with hypoxia New onset of congestive heart failure Diabetes Obesity Dyspnea on exertion Paroxysmal atrial fibrillation Essential (primary) hypertension Dyspnea on exertion Chronic diastolic CHF (congestive heart failure) KIANNA (obstructive sleep apnea) Diabetes Obesity Chief Complaint 4 M FU UNSTABLE ANGINA, SOB UNSTABLE ANGINA, SOB UNSTABLE ANGINA, SOB UNSTABLE ANGINA, SOB UNSTABLE ANGINA, SOB HYPOXIA HYPOXIA HYPOXIA 1 M FU [address] fu Shortness of breath dizziness KIANNA; LM 08/04 & 08/07 6 wk FU CP, PROB ACS CP, PROB ACS SOB Reason for Visit Diabetes Essential (primary) hypertension Hyperlipidemia Obesity Essential (primary) hypertension Hyperlipidemia Acidosis, lactic Acute respiratory failure with hypoxia New onset of congestive heart failure Diabetes Obesity Dyspnea on exertion Paroxysmal atrial fibrillation Essential (primary) hypertension Dyspnea on exertion Chronic diastolic CHF (congestive heart failure) KIANNA (obstructive sleep apnea) Diabetes Obesity Chief Complaint 4 M FU UNSTABLE ANGINA, SOB UNSTABLE ANGINA, SOB UNSTABLE ANGINA, SOB UNSTABLE ANGINA, SOB UNSTABLE ANGINA, SOB HYPOXIA HYPOXIA HYPOXIA 1 M FU [address] fu Shortness of breath dizziness KIANNA; LM 08/04 & 08/07 6 wk FU CP, PROB ACS CP, PROB ACS SOB [facility]/P [facility] ER DYSPNEA Reason for Visit Diabetes Essential (primary) hypertension Hyperlipidemia Obesity Essential (primary) hypertension Hyperlipidemia Acidosis, lactic Acute respiratory failure with hypoxia New onset of congestive heart failure Diabetes Obesity Dyspnea on exertion Paroxysmal atrial fibrillation Essential (primary) hypertension Dyspnea on exertion Chronic diastolic CHF (congestive heart failure) KIANNA (obstructive sleep apnea) Diabetes Obesity Left carotid bruit Paroxysmal atrial fibrillation Essential (primary) hypertension Chief Complaint 4 M FU 3 M FU 4 M FU CHF, DYSPNEA CHF, DYSPNEA REQ. SOONER APPT PER [facility]/ CHF Reason for Visit Left carotid bruit Paroxysmal atrial fibrillation Essential (primary) hypertension Diabetes Essential (primary) hypertension Obesity Dyspnea on exertion Chronic diastolic CHF (congestive heart failure) KIANNA (obstructive sleep apnea) Dyspnea on exertion Left carotid bruit Paroxysmal atrial fibrillation Essential (primary) hypertension Chief Complaint 3 M FU 4 M FU CHF, DYSPNEA CHF, DYSPNEA REQ. SOONER APPT PER [facility]/ CHF 2 M FU LABS AND XRAY Unspecified bacterial pneumonia Reason for Visit Diabetes Essential (primary) hypertension Obesity Dyspnea on exertion Chronic diastolic CHF (congestive heart failure) KIANNA (obstructive sleep apnea) Dyspnea on exertion Left carotid bruit Paroxysmal atrial fibrillation Essential (primary) hypertension Diabetes Essential (primary) hypertension Obesity Chief Complaint 3 M FU 4 M FU CHF, DYSPNEA CHF, DYSPNEA REQ. SOONER APPT PER R/ CHF 2 M FU LABS AND XRAY Unspecified bacterial pneumonia 6 wk FU Other forms of angina pectoris Reason for Visit Diabetes Essential (primary) hypertension Obesity Dyspnea on exertion Chronic diastolic CHF (congestive heart failure) KIANNA (obstructive sleep apnea) Dyspnea on exertion Left carotid bruit Paroxysmal atrial fibrillation Essential (primary) hypertension Diabetes Essential (primary) hypertension Obesity Dyspnea on exertion Left carotid bruit Paroxysmal atrial fibrillation Essential (primary) hypertension Chief Complaint 2 M FU LABS AND XRAY Unspecified bacterial pneumonia 6 wk FU Other forms of angina pectoris EORDER 6 M FU 4 M FU 2 M FU EORDER Reason for Visit Diabetes Essential (primary) hypertension Obesity Left carotid bruit Paroxysmal atrial fibrillation Dyspnea on exertion Essential (primary) hypertension Left carotid bruit Paroxysmal atrial fibrillation Dyspnea on exertion Essential (primary) hypertension Chronic diastolic CHF (congestive heart failure) Chronic respiratory failure with hypoxia Dyspnea on exertion Obesity KIANNA (obstructive sleep apnea) Diabetes Hypothyroidism Obesity Chief Complaint LABS AND XRAY Unspecified bacterial pneumonia 6 wk FU Other forms of angina pectoris EORDER 6 M FU 4 M FU 2 M FU EORDER Cervicalgia Reason for Visit Left carotid bruit Paroxysmal atrial fibrillation Dyspnea on exertion Essential (primary) hypertension Left carotid bruit Paroxysmal atrial fibrillation Dyspnea on exertion Essential (primary) hypertension Chronic diastolic CHF (congestive heart failure) Chronic respiratory failure with hypoxia Dyspnea on exertion Obesity KIANNA (obstructive sleep apnea) Diabetes Hypothyroidism Obesity Chief Complaint LABS AND XRAY Unspecified bacterial pneumonia 6 wk FU Other forms of angina pectoris EORDER 6 M FU 4 M FU 2 M FU EORDER Cervicalgia VERTIGO ? POSTERIOR CVA VERTIGO ? POSTERIOR CVA VERTIGO ? POSTERIOR CVA Reason for Visit Left carotid bruit Paroxysmal atrial fibrillation Dyspnea on exertion Essential (primary) hypertension Left carotid bruit Paroxysmal atrial fibrillation Dyspnea on exertion Essential (primary) hypertension Chronic diastolic CHF (congestive heart failure) Chronic respiratory failure with hypoxia Dyspnea on exertion Obesity KIANNA (obstructive sleep apnea) Diabetes Hypothyroidism Obesity Vertigo Chief Complaint 4 M FU 2 M FU EORDER Cervicalgia VERTIGO ? POSTERIOR CVA VERTIGO ? POSTERIOR CVA VERTIGO ? POSTERIOR CVA 2 M FU CAROTID STENOSIS Reason for Visit Chronic diastolic CH F (congestive heart failure) Chronic respiratory failure with hypoxia Dyspnea on exertion Obesity KIANNA (obstructive sleep apnea) Diabetes Hypothyroidism Obesity Vertigo Diabetes Essential (primary) hypertension Insulin pump titration Obesity Presence of insulin pump Chief Complaint EORDER Cervicalgia VERTIGO ? POSTERIOR CVA VERTIGO ? POSTERIOR CVA VERTIGO ? POSTERIOR CVA 2 M FU CAROTID STENOSIS XRAY CAROTID DUPLEX TEST 7 CERVICAL RADICULOPATHY Reason for Visit Vertigo Diabetes Essential (primary) hypertension Insulin pump titration Obesity Presence of insulin pump Carotid stenosis Double vision Left carotid bruit Vertigo Chief Complaint Cervicalgia VERTIGO ? POSTERIOR CVA VERTIGO ? POSTERIOR CVA VERTIGO ? POSTERIOR CVA 2 M FU CAROTID STENOSIS XRAY CAROTID DUPLEX TEST 10/01 CERVICAL RADICULOPATHY Reason for Visit Vertigo Diabetes Essential (primary) hypertension Insulin pump titration Obesity Presence of insulin pump Carotid stenosis Double vision Left carotid bruit Vertigo Chief Complaint Cervicalgia VERTIGO ? POSTERIOR CVA VERTIGO ? POSTERIOR CVA VERTIGO ? POSTERIOR CVA 2 M FU CAROTID STENOSIS XRAY CAROTID DUPLEX TEST 10/01 CERVICAL RADICULOPATHY LAB AND CHEST XRAY ABNORMAL FINDINGS OF BLOOD CHEMISTRY Reason for Visit Vertigo Diabetes Essential (primary) hypertension Insulin pump titration Obesity Presence of insulin pump Carotid stenosis Double vision Left carotid bruit Vertigo Chief Complaint CAROTID STENOSIS XRAY CAROTID DUPLEX TEST 7/ CERVICAL RADICULOPATHY LAB AND CHEST XRAY ABNORMAL FINDINGS OF BLOOD CHEMISTRY 3 M FU L THYROID NODULE THYROID NODULE CKD Reason for Visit Carotid stenosis Double vision Left carotid bruit Vertigo Post op infection Thyroid nodule CKD (chronic kidney disease) Diabetes Hypothyroidism Microalbuminuria Obesity Multiple thyroid nodules Chief Complaint LAB AND CHEST XRAY ABNORMAL FINDINGS OF BLOOD CHEMISTRY 3 M FU L THYROID NODULE THYROID NODULE CKD 2 M FU Reason for Visit Post op infection Thyroid nodule CKD (chronic kidney disease) Diabetes Hypothyroidism Microalbuminuria Obesity Multiple thyroid nodules CKD (chronic kidney disease) Diabetes Hypothyroidism Microalbuminuria Neuropathy Obesity Chief Complaint LAB AND CHEST XRAY ABNORMAL FINDINGS OF BLOOD CHEMISTRY 3 M FU L THYROID NODULE THYROID NODULE CKD 2 M FU EORDER- THYROID LABS ONLY 1 Y FU THYROID FNA FNA R THYROID NODULE Reason for Visit Post op infection Thyroid nodule CKD (chronic kidney disease) Diabetes Hypothyroidism Microalbuminuria Obesity Multiple thyroid nodules CKD (chronic kidney disease) Diabetes Hypothyroidism Microalbuminuria Neuropathy Obesity Left carotid bruit Paroxysmal atrial fibrillation Dyspnea on exertion Essential (primary) hypertension Chief Complaint LAB AND CHEST XRAY ABNORMAL FINDINGS OF BLOOD CHEMISTRY 3 M FU L THYROID NODULE THYROID NODULE CKD 2 M FU EORDER- THYROID LABS ONLY 1 Y FU THYROID FNA FNA R THYROID NODULE Reason for Visit Post op infection Thyroid nodule CKD (chronic kidney disease) Diabetes Hypothyroidism Microalbuminuria Obesity Multiple thyroid nodules CKD (chronic kidney disease) Diabetes Hypothyroidism Microalbuminuria Neuropathy Obesity Left carotid bruit Paroxysmal atrial fibrillation Dyspnea on exertion Essential (primary) hypertension Multiple thyroid nodules Chief Complaint 3 M FU L THYROID NODULE THYROID NODULE CKD 2 M FU EORDER- THYROID LABS ONLY 1 Y FU THYROID FNA FNA R THYROID NODULE dizziness and giddiness RT THYROID NODULE RT THYROID NODULE Reason for Visit Post op infection Thyroid nodule CKD (chronic kidney disease) Diabetes Hypothyroidism Microalbuminuria Obesity Multiple thyroid nodules CKD (chronic kidney disease) Diabetes Hypothyroidism Microalbuminuria Neuropathy Obesity Left carotid bruit Paroxysmal atrial fibrillation Dyspnea on exertion Essential (primary) hypertension Multiple thyroid nodules Polyneuropathy Hyperlipidemia Chief Complaint L THYROID NODULE THYROID NODULE CKD 2 M FU EORDER- THYROID LABS ONLY 1 Y FU THYROID FNA FNA R THYROID NODULE dizziness and giddiness RT THYROID NODULE RT THYROID NODULE HR 130 today per Apple Watch E-ORDER Reason for Visit Multiple thyroid nod ules CKD (chronic kidney disease) Diabetes Hypothyroidism Microalbuminuria Neuropathy Obesity Left carotid bruit Paroxysmal atrial fibrillation Dyspnea on exertion Essential (primary) hypertension Multiple thyroid nodules History of TIA (transient ischemic attack) Ischemic cerebrovascular accident (CVA) Peripheral vestibulopathy Polyneuropathy Hyperlipidemia Double vision Chief Complaint CKD 2 M FU EORDER- THYROID LABS ONLY 1 Y FU THYROID FNA FNA R THYROID NODULE dizziness and giddiness RT THYROID NODULE RT THYROID NODULE HR 130 today per Apple Watch E-ORDER LEFT CAROTID BRUIT Reason for Visit CKD (chronic kidney disease) Diabetes Hypothyroidism Microalbuminuria Neuropathy Obesity Left carotid bruit Paroxysmal atrial fibrillation Dyspnea on exertion Essential (primary) hypertension Multiple thyroid nodules History of TIA (transient ischemic attack) Ischemic cerebrovascular accident (CVA) Peripheral vestibulopathy Polyneuropathy Hyperlipidemia Double vision Chief Complaint EORDER- THYROID LABS ONLY 1 Y FU THYROID FNA FNA R THYROID NODULE dizziness and giddiness RT THYROID NODULE RT THYROID NODULE HR 130 today per Apple Watch E-ORDER LEFT CAROTID BRUIT 3 M FU CAROTID RESULTS OCCLUSION AND STENOSIS CAROTID ARTERY Reason for Visit Left carotid bruit Paroxysmal atrial fibrillation Dyspnea on exertion Essential (primary) hypertension Multiple thyroid nodules History of TIA (transient ischemic attack) Ischemic cerebrovascular accident (CVA) Peripheral vestibulopathy Polyneuropathy Hyperlipidemia Double vision CKD (chronic kidney disease) Diabetes Essential (primary) hypertension Hypothyroidism Neuropathy Obesity Carotid stenosis History of TIA (transient ischemic attack) Ischemic cerebrovascular accident (CVA) Polyneuropathy Chief Complaint HR 130 today per [employer] Watch E-ORDER LEFT CAROTID BRUIT 3 M FU CAROTID RESULTS OCCLUSION AND STENOSIS CAROTID ARTERY CAROTID RESULTS CONSULT-OCCLUSION AND SENOSIS Reason for Visit CKD (chronic kidney disease) Diabetes Essential (primary) hypertension Hypothyroidism Neuropathy Obesity History of TIA (transient ischemic attack) Ischemic cerebrovascular accident (CVA) Polyneuropathy Carotid stenosis Carotid stenosis Carotid stenosis Chief Complaint Admit Date CHF April 12, 2024 1 :25pm Congestive heart failure April 15, 2 025 1:00pm Congestive heart failure April 15, 2 025 3:28pm 5 M FU April 16, 2024 9 :21am 1 M FU April 22, 2024 1 0:03am CVA, ELEVATED TROPONIN April 24 8:27pm NERUO SX April 24, 2024 9 :07pm CVA, ELEVATED TROPONIN April 25 12:05am B12 inject April 30, 2024 1 0:53am 1 Y FU April 30, 2024 1 :24pm 1 Y FU April 30, 2024 2 :09pm Acute May 01, 2024 1 :36pm 3 MO - LABS May 05, 2024 1 2:38pm 3 MO - LABS May 05, 2024 1 2:39pm See clinical note per May 21, 2024 10:41am [facility] SNOW[employer] TO READ May 28, 2024 7:06am 30 DAY MONITOR May 28, 2024 9:00am unable to tolerate cpap, new oxygen requ irement June 02, 2024 7:43pm B12 inject June 04, 2024 1:20 pm 8-10 WK F/U June 10, 2024 12: 44pm B12 inject July 06, 2024 1:22 pm B12 inject August 06, 2024 2:27pm EKG (SNOWMAKER) August 12, 2024 11:03 am EORDERS August 12, 2024 11:27 am Reason for Visit Admit Date Chronic respiratory failure with hypoxia April 12, 2024 1:25pm Acute hypoxemic respiratory failure Ash baryan 2024 1:25pm CHF (congestive heart failure) April 012024 1:25pm CKD (chronic kidney disease) April 9:21am Diabetes April 16, 2024 9 :21am Essential (primary) hypertension April 16, 2024 9:21am Hypothyroidism April 16, 2024 9 :21am Insulin pump titration April 16 9:21am Obesity April 16, 2024 9 :21am Presence of insulin pump April 16, 025 9:21am Interstitial lung disease April 22, 2024 10:03am Chronic diastolic CHF (congestive heart failure) April 22, 2024 10:03am Chronic respiratory failure with hypoxia April 22, 2024 10:03am Obesity April 22, 2024 1 0:03am KIANNA (obstructive sleep apnea) April 222024 10:03am Rheumatoid factor positive April 22, 2024 10:03am Sleep apnea April 22, 2024 1 0:03am CVA (cerebral vascular accident) April 24, 2024 8:27pm Fatigue April 30, 2024 1 0:53am Interstitial lung disease April 30, 2024 1:24pm Essential (primary) hypertension April 30, 2024 1:24pm Ischemic cerebrovascular accident (CVA) April 30, 2024 1:24pm Dyspnea on exertion April 30, 2024 1 :24pm Paroxysmal atrial fibrillation April 032024 1:24pm Ischemic cerebrovascular accident (CVA) April 30, 2024 2:09pm Interstitial lung disease May 01, 2024 1:36pm Chronic diastolic CHF (congestive heart failure) May 01, 2024 1:36pm Chronic respiratory failure with hypoxia May 01, 2024 1:36pm Obesity May 01, 2024 1 :36pm KIANNA (obstructive sleep apnea) May 012024 1:36pm Rheumatoid factor positive May 01, 2024 1:36pm Iron deficiency anemia due to chronic bl ood loss May 05, 2024 12:39pm Interstitial lung disease May 21, 2024 10:41am Chronic diastolic CHF (congestive heart failure) May 21, 2024 10:41am Essential (primary) hypertension 2024 10:41am Ischemic cerebrovascular accident (CVA) May 21, 2024 10:41am Dyspnea on exertion May 21, 2024 10:41am Paroxysmal atrial fibrillation May 21, 2024 10:41am Fatigue June 04, 2024 1:20 pm Interstitial lung disease June 10 12:44pm Chronic diastolic CHF (congestive heart failure) June 10, 2024 12:44pm Chronic respiratory failure with hypoxia June 10, 2024 12:44pm Obesity June 10, 2024 12: 44pm KIANNA (obstructive sleep apnea) May 12:44pm Rheumatoid factor positive June 10, 2 025 12:44pm Fatigue July 06, 2024 1:22 pm Fatigue August 06, 2024 2:27pm Chief Complaint Admit Date 5 M FU April 16, 2024 9 :21am 1 M FU April 22, 2024 1 0:03am CVA, ELEVATED TROPONIN April 24 8:27pm NERUO SX April 24, 2024 9 :07pm CVA, ELEVATED TROPONIN April 25 12:05am B12 inject April 30, 2024 1 0:53am 1 Y FU April 30, 2024 1 :24pm 1 Y FU April 30, 2024 2 :09pm Acute May 01, 2024 1 :36pm 3 MO - LABS May 05, 2024 1 2:38pm 3 MO - LABS May 05, 2024 1 2:39pm See clinical note per JR May 21, 2024 10:41am [employer] SN[employer] TO READ May 28, 2024 7:06am 30 DAY MONITOR May 28, 2024 9:00am unable to tolerate cpap, new oxygen requ irement June 02, 2024 7:43pm B12 inject June 04, 2024 1:20 pm 8-10 WK F/U June 10, 2024 12: 44pm B12 inject July 06, 2024 1:22 pm B12 inject August 06, 2024 2:27pm EKG (SNOWMAKER) August 12, 2024 11:03 am EORDERS August 12, 2024 11:27 am Reason for Visit Admit Date CKD (chronic kidney disease) April 9:21am Diabetes April 16, 2024 9 :21am Essential (primary) hypertension April 16, 2024 9:21am Hypothyroidism April 16, 2024 9 :21am Insulin pump titration April 16 9:21am Obesity April 16, 2024 9 :21am Presence of insulin pump April 16 9:21am Interstitial lung disease April 22, 2024 10:03am Chronic diastolic CHF (congestive heart failure) April 22, 2024 10:03am Chronic respiratory failure with hypoxia April 22, 2024 10:03am Obesity April 22, 2024 1 0:03am KIANNA (obstructive sleep apnea) April 222024 10:03am Rheumatoid factor positive April 22, 2024 10:03am Sleep apnea April 22, 2024 1 0:03am CVA (cerebral vascular accident) April 24, 2024 8:27pm Fatigue April 30, 2024 1 0:53am Interstitial lung disease April 30, 2024 1:24pm Essential (primary) hypertension April 30, 2024 1:24pm Ischemic cerebrovascular accident (CVA) April 30, 2024 1:24pm Dyspnea on exertion April 30, 2024 1 :24pm Paroxysmal atrial fibrillation April 032024 1:24pm Ischemic cerebrovascular accident (CVA) April 30, 2024 2:09pm Interstitial lung disease May 01, 2024 1:36pm Chronic diastolic CHF (congestive heart failure) May 01, 2024 1:36pm Chronic respiratory failure with hypoxia May 01, 2024 1:36pm Obesity May 01, 2024 1 :36pm KIANNA (obstructive sleep apnea) May 012024 1:36pm Rheumatoid factor positive May 01, 2024 1:36pm Iron deficiency anemia due to chronic bl ood loss May 05, 2024 12:39pm Interstitial lung disease May 21, 2024 10:41am Chronic diastolic CHF (congestive heart failure) May 21, 2024 10:41am Essential (primary) hypertension [id number] 10:41am Ischemic cerebrovascular accident (CVA) May 21, 2024 10:41am Dyspnea on exertion May 21, 2024 10:41am Paroxysmal atrial fibrillation May 21, 2024 10:41am Fatigue June 04, 2024 1:20 pm Interstitial lung disease June 10 12:44pm Chronic diastolic CHF (congestive heart failure) June 10, 2024 12:44pm Chronic respiratory failure with hypoxia June 10, 2024 12:44pm Obesity June 10, 2024 12: 44pm KIANNA (obstructive sleep apnea) May 12:44pm Rheumatoid factor positive June 10, 025 12:44pm Fatigue July 06, 2024 1:22 pm Fatigue August 06, 2024 2:27pm Chief Complaint Admit Date 1 M FU April 22, 2024 1 0:03am CVA, ELEVATED TROPONIN April 24 8:27pm NERUO SX April 24, 2024 9 :07pm CVA, ELEVATED TROPONIN April 25 12:05am B12 inject April 30, 2024 1 0:53am 1 Y FU April 30, 2024 1 :24pm 1 Y FU April 30, 2024 2 :09pm Acute May 01, 2024 1 :36pm 3 MO - LABS May 05, 2024 1 2:38pm 3 MO - LABS May 05, 2024 1 2:39pm See clinical note per May 21, 2024 10:41am [employer] SNOWMAKER TO READ May 28, 2024 7:06am 30 DAY MONITOR May 28, 2024 9:00am unable to tolerate cpap, new oxygen requ irement June 02, 2024 7:43pm B12 inject June 04, 2024 1:20 pm 8-10 WK F/U June 10, 2024 12: 44pm B12 inject July 06, 2024 1:22 pm B12 inject August 06, 2024 2:27pm EKG (SNOWMAKER) August 12, 2024 11:03 am EORDERS August 12, 2024 11:27 am 6 M FU August 17, 2024 11:16 am Reason for Visit Admit Date Interstitial lung disease April 22, 2024 10:03am Chronic diastolic CHF (congestive heart failure) April 22, 2024 10:03am Chronic respiratory failure with hypoxia April 22, 2024 10:03am Obesity April 22, 2024 1 0:03am KIANNA (obstructive sleep apnea) April 222024 10:03am Rheumatoid factor positive April 22, 2024 10:03am Sleep apnea April 22, 2024 1 0:03am CVA (cerebral vascular accident) April 24, 2024 8:27pm Fatigue April 30, 2024 1 0:53am Interstitial lung disease April 30, 2024 1:24pm Essential (primary) hypertension April 30, 2024 1:24pm Ischemic cerebrovascular accident (CVA) April 30, 2024 1:24pm Dyspnea on exertion April 30, 2024 1 :24pm Paroxysmal atrial fibrillation April 032024 1:24pm Ischemic cerebrovascular accident (CVA) April 30, 2024 2:09pm Interstitial lung disease May 01, 2024 1:36pm Chronic diastolic CHF (congestive heart failure) May 01, 2024 1:36pm Chronic respiratory failure with hypoxia May 01, 2024 1:36pm Obesity May 01, 2024 1 :36pm KIANNA (obstructive sleep apnea) May 012024 1:36pm Rheumatoid factor positive May 01, 2024 1:36pm Iron deficiency anemia due to chronic bl ood loss May 05, 2024 12:39pm Interstitial lung disease May 21, 2024 10:41am Chronic diastolic CHF (congestive heart failure) May 21, 2024 10:41am Essential (primary) hypertension 2024 10:41am Ischemic cerebrovascular accident (CVA) May 21, 2024 10:41am Dyspnea on exertion May 21, 2024 10:41am Paroxysmal atrial fibrillation May 21, 2024 10:41am Fatigue June 04, 2024 1:20 pm Interstitial lung disease June 10 12:44pm Chronic diastolic CHF (congestive heart failure) June 10, 2024 12:44pm Chronic respiratory failure with hypoxia June 10, 2024 12:44pm Obesity June 10, 2024 12: 44pm KIANNA (obstructive sleep apnea) May 12:44pm Rheumatoid factor positive June 10, 12:44pm Fatigue July 06, 2024 1:22 pm Fatigue August 06, 2024 2:27pm Hyperlipidemia August 17, 2024 11:16 am Chief Complaint Admit Date See clinical note per May 21, 2024 10:41am [employer] SNOWMAKER TO READ May 28, 2024 7:06am 30 DAY MONITOR May 28, 2024 9:00am unable to tolerate cpap, new oxygen requ irement June 02, 2024 7:43pm B12 inject June 04, 2024 1:20 pm 8-10 WK F/U June 10, 2024 12: 44pm B12 inject July 06, 2024 1:22 pm B12 inject August 06, 2024 2:27pm EKG (SNOWMAKER) August 12, 2024 11:03 am EORDERS August 12, 2024 11:27 am 6 M FU August 17, 2024 11:16 am B12 inject September 15, 2024 12:5 3pm Reason for Visit Admit Date Interstitial lung disease May 21, 2024 10:41am Chronic diastolic CHF (congestive heart failure) May 21, 2024 10:41am Essential (primary) hypertension 2024 10:41am Dyspnea on exertion May 21, 2024 10:41am Ischemic cerebrovascular accident (CVA) May 21, 2024 10:41am Paroxysmal atrial fibrillation May 21, 2024 10:41am Fatigue June 04, 2024 1:20 pm Interstitial lung disease June 10 12:44pm Chronic diastolic CHF (congestive heart failure) June 10, 2024 12:44pm Chronic respiratory failure with hypoxia June 10, 2024 12:44pm Obesity June 10, 2024 12: 44pm KIANNA (obstructive sleep apnea) May 12:44pm Rheumatoid factor positive June 10, 025 12:44pm Fatigue July 06, 2024 1:22 pm Fatigue August 06, 2024 2:27pm Hyperlipidemia August 17, 2024 11:16 am Ischemic cerebrovascular accident (CVA) August 17, 2024 11:16am Polyneuropathy August 17, 2024 11:16 am Fatigue August 17, 2024 11:16 am Fatigue September 15, 2024 12:5 3pm Chief Complaint Admit Date See clinical note per May 21, 2024 10:41am [employer] SNOWMAKER TO READ May 28, 2024 7:06am 30 DAY MONITOR May 28, 2024 9:00am unable to tolerate cpap, new oxygen requ irement June 02, 2024 7:43pm B12 inject June 04, 2024 1:20 pm 8-10 WK F/U June 10, 2024 12: 44pm B12 inject July 06, 2024 1:22 pm B12 inject August 06, 2024 2:27pm EKG (SNOWMAKER) August 12, 2024 11:03 am EORDERS August 12, 2024 11:27 am 6 M FU August 17, 2024 11:16 am B12 inject September 15, 2024 12:5 3pm 5 M FU September 16, 2024 9:59 am Reason for Referral Specialty Diagnoses / Procedures Referred By Contac t Referred To Contact Radiology Diagnoses Bilateral carotid artery stenosis Ischemic cerebrovascular accident (CVA) (HCC) Procedures CTA head neck angio w and wo IV contrast Oziel Culp MD [address] [place] [address] Referral ID Status Reason Start Date Expiration Date V isits Requested Visits Authorized [id number] Pending Review 01/06/2024 01/05/2025 1 1 Specialty Diagnoses / Procedures Referred By Contac t Referred To Contact Diagnoses Cerebrovascular accident (CVA), unspecified mechanism (HCC) Harmeet Stallworth MD [address] [place] [address] Referral ID Status Reason Start Date Expiration Date Visits Re quested Visits Authorized [id number] Closed 1 1 Additional Source Comments (unrecognized sect ion and content) No Status Records FoundNo Status Records FoundNo Status Records FoundNo Status Records FoundNo Status Records FoundNo Status Records FoundNo Status Records FoundNo Status Records FoundNo Status Records Found INFORMATION SOURCE (unrecogn ized section and content) DATE CREATED AUTHOR 09/08/2018 [facility] ([place]) DATE CREATED AUTHOR AUTHOR'S ORGANIZ ATION 10/18/2023 [facility] DATE CREATED AUTHOR AUTHOR'S ORGANIZ ATION 06/13/2024 [facility] DATE CREATED AUTHOR AUTHOR'S ORGANIZ ATION 07/25/2024 [facility] DATE CREATED AUTHOR AUTHOR'S ORGANIZ ATION 07/26/[address] [facility] DATE CREATED AUTHOR AUTHOR'S ORGANIZ ATION 08/08/2024 [facility] DATE CREATED AUTHOR AUTHOR'S ORGANIZ ATION 09/18/2024 [facility] DATE CREATED AUTHOR AUTHOR'S ORGANIZ ATION 09/25/2024 [facility] DATE CREATED AUTHOR AUTHOR'S ORGANIZ ATION 09/26/2024 [facility] Source Comments (unrecognize d section and content) In the event this informatio n is protected by the Federal Confidentiality of Alcohol and Drug Abuse Patient Records regulations: The Federal rules restrict any use of the information to criminally investigate or prosecute any alcohol or drug abuse patient.[facility] Goals (unrecognized section and content) Goals may be documented in a n alternate sectionGoals may be documented in an alternate sectionGoals may be documented in an alternate sectionGoals may be documented in an alternate sectionGoals may be documented in an alternate sectionGoals may be documented in an alternate sectionGoals may be documented in an alternate sectionGoals may be documented in an alternate sectionGoals may be documented in an alternate sectionGoals may be documented in an alternate sectionGoals may be documented in an alternate sectionGoals may be documented in an alternate sectionGoals may be documented in an alternate sectionGoals may be documented in an alternate section No data available for this sectionGoals may be documented in an alternate sectionGoals may be documented in an alternate section Care Teams (unrecognized sec tion and content) Team Status: Active Member Role Status Dates Dr. Radha Khan MD Family Provider Active Dr. Radha Khan MD Primary Care Provider Active Team Status: Inactive Member Role Status Dates Dr. Radha Khan MD Primary Care Provider, [facility] Provider Active Dr. Jonathon Salas MD Attending Provider Active Team Status: Inactive Member Role Status Dates Dr. Radha Khan MD Primary Care Provider, Referrin g Provider Active PITO Phan Attending Provider Active Team Status: Inactive Member Role Status Dates Dr. Radha Khan MD Primary Care Provider, Referrin g Provider Active Oren Sky CASE WORK AIDE, CASE WORK AIDE-C Attending Provider Active Team Status: Active Member Role Status Dates Dr. Radha Khan MD Primary Care Provider Active Dr. Jonathon Salas MD Referring Provider, Other Provid er Active Dr. Fran Rodriguez DO Attending Provider Active Team Status: Inactive Member Role Status Dates Dr. Radha Khan MD Primary Care Provider Active Dr. Jonathon Salas MD Attending Provider Active Team Status: Inactive Member Role Status Dates Dr. Radha Khan MD Primary Care Provider, Other Pr ovider Active Oren Sky CASE WORK AIDE, CASE WORK AIDE-C Attending Provider, Referring Pro vider Active Team Status: Active Member Role Status Dates Dr. Radha Khan MD Primary Care Prov ider, Attending Provider, Referring Provider Active Team Status: Inactive Member Role Status Dates Dr. Radha Khan MD Primary Care Provider Active Dr. Sumanth Hanna MD Attending Provider Active Sumanth Hanna MD Referring Provider Active Team Status: Inactive Member Role Status Dates Dr. Radha Khan MD Primary Care Prov ider, Attending Provider, Referring Provider Active Team Status: Inactive Member Role Status Dates Dr. Radha Khan MD Primary Care Provider, Referrin g Provider Active Fior Vallejo NP, CASE WORK AIDE-C Attending Provider Active Team Status: Inactive Member Role Status Dates Dr. Radha Khan MD Primary Care Provider Active Dr. Sumanth Hanna MD Attending Provider Active Sumanth AVILA MD Referring Provider Active Team Status: Inactive Member Role Status Dates Dr. Radha Khan MD Primary Care Provider Active Lydia Segura PA, PA Attending Provider, Referr ing Provider Active Team Status: Inactive Member Role Status Dates Dr. Radha Khan MD Primary Care Provider Active PITO Phan Attending Provider, Referring Pr ovider Active Team Status: Active Member Role Status Dates Dr. Radha Khan MD Primary Care Provider Active Dr. Nely Hill MD Emergency Provider Active Dr. Cookie Bell MD Admit Provider, Other Provider Active Dr. Eduin Ospina MD Attending Provider, Other Provid er Active Team Status: Active Member Role Status Dates Dr. Radha Khan MD Primary Care Provider Active Dr. Burt Herrera MD Attending Provider Active Team Status: Inactive Member Role Status Dates Dr. Radha Khan MD Primary Care Provider Active Dr. Nely Hill MD Emergency Provider Active Dr. Cookie Bell MD Admit Provider, Other Provider Active Dr. Eduin Ospina MD Attending Provider Active Team Status: Active Member Role Status Dates Dr. Radha Khan MD Primary Care Provider Active Dr. Burt Herrera MD Attending Provider, Referring Pr ovider Active Team Status: Active Member Role Status Dates Dr. Radha Khan MD Primary Care Provider Active Dr. Francois Valiente MD Attending Provider Active Team Status: Inactive Member Role Status Dates Dr. Radha Khan MD Primary Care Provider Active Dr. Francois Valiente MD Attending Provider, Referring Provider Active Team Status: Inactive Member Role Status Dates Dr. Radha Khan MD Primary Care Provider, Referrin g Provider Active Dr. Francois Valiente MD Attending Provider Active Team Status: Active Member Role Status Dates Dr. Radha Khan MD Primary Care Provider Active Dr. Francois Valiente MD Attending Provider, Referring Provider Active Team Status: Inactive Member Role Status Dates Dr. Radha Khan MD Primary Care Provider Active Dr. Sumanth Hanna MD Attending Provider Active Team Status: Inactive Member Role Status Dates Dr. Radha Khan MD Primary Care Provider Active Dr. Sameer Rader MD Attending Provider, Referring Provider Active Team Status: Inactive Member Role Status Dates Dr. Radha Khan MD Primary Care Provider Active Brandt Winter MD Attending Provider Active Team Status: Inactive Member Role Status Dates Dr. Radha Khan MD Primary Care Provider Active Brantd Winter MD Attending Provider, Referring Provide r Active Team Status: Active Member Role Status Dates Dr. Radha Khan MD Primary Care Provider Active Brantd Winter MD Attending Provider, Referring Provide r Active Team Status: Inactive Member Role Status Dates Dr. Radha Khan MD Primary Care Provider, Referrin g Provider Active Dr. Karol Rushing MD Attending Provider Active Team Status: Inactive Member Role Status Dates Dr. Radha Khan MD Primary Care Provider Active Dr. Fany Diaz MD Attending Provider, Referring Provider Active Team Status: Inactive Member Role Status Dates Dr. Radha Khan MD Primary Care Provider Active Dr. Karol Rushing MD Attending Provider, Referring P rovider Active Team Status: Inactive Member Role Status Dates Dr. Radha Khan MD Primary Care Provider, Referrin g Provider Active Dr. Sameer Rader MD Attending Provider Active Team Status: Inactive Member Role Status Dates Dr. Radha Khan MD Primary Care Provider, Referrin g Provider Active Lydia Segura PA, PA Active Oren Sky CASE WORK AIDE, CASE WORK AIDE-C Attending Provider Active Team Status: Active Member Role Status Dates Dr. Radha Khan MD Primary Care Provider Active Dr. Karol Rushing MD Attending Provider, Referring P rovider Active Team Status: Inactive Member Role Status Dates Dr. Radha Khan MD Primary Care Provider, Referrin g Provider Active Dr. Toni Vann MD Attending Provider Active Team Status: Active Member Role Status Dates Dr. Radha Khan MD Primary Care Provider Active Dr. Karol Rushing MD Attending Provider, Other Provi erika Active Shanti Baum PA, PA-C Referring Provider, Other Pro vider Active Team Status: Inactive Member Role Status Dates Dr. Radha Khan MD Primary Care Provider Active Dr. Karol Rushing MD Other Provider Active Shanti Baum PA, PA-C Attending Provider, Referring Provider Active Team Status: Inactive Member Role Status Dates Dr. Radha Khan MD Primary Care Provider Active Oren Sky CASE WORK AIDE, CASE WORK AIDE-C Attending Provider, Referring Pro vider Active Team Status: Inactive Member Role Status Dates Dr. Radha Khan MD Primary Care Provider, Referrin g Provider Active Dr. Ochoa Dobbs MD Attending Provider Active Legal Office Administrator Relationship Specialty Start Date End Date Radha Khan [address] [facility] [address] [place] [id number] PCP - General Family Medicine 10/03/23 Legal Office Administrator Relationship Specialty Start Date End Date Radha Khan [address] [facility] [address] [place] [address] PCP - General Family Medicine 10/03/23 Legal Office Administrator Relationship Specialty Start Date End Date Radha Khan [address] [place] [address] PCP - General Family Medicine 10/03/23 Legal Office Administrator Relationship Specialty Start Date End Date Bill Radha Lisandro [address] [place] [address] PCP - General Family Medicine 10/03/23 Legal Office Administrator Relationship Specialty Start Date End Date Radha Khan [address] [place] [address] PCP - General Family Medicine 10/03/23 Legal Office Administrator Relationship Specialty Start Date End Date Radha Khan [address] [place] [address] PCP - General Family Medicine 10/03/23 Legal Office Administrator Relationship Specialty Start Date End Date Radha Khan [address] [place] [address] PCP - General Family Medicine 10/03/23 Legal Office Administrator Relationship Specialty Start Date End Date Radha Khan [address] [place] [address] PCP - General Family Medicine 10/03/23 Suzy Jauregui MD [address] [place] [id number] Consulting Physician Vascular Surgery 04/24/24 Legal Office Administrator Relationship Specialty Start Date End Date Radha Khan [address] [place] [phone] PCP - General Family Medicine 10/03/23 Suzy Jauregui MD [address] [place] [address] Consulting Physician Vascular Surgery 04/24/24 Legal Office Administrator Relationship Specialty Start Date End Date Radha Khan [address] [place] [phone] PCP - General Family Medicine 10/03/23 Suzy Jauregui MD [address] [place] [address] Consulting Physician Vascular Surgery 04/24/24 Legal Office Administrator Relationship Specialty Start Date End Date Radha Khan [address] [place] [phone] PCP - General Family Medicine 10/03/23 Suzy Jauregui MD [address] [place] [address] Consulting Physician Vascular Surgery 04/24/24 Legal Office Administrator Relationship Specialty Start Date End Date Radha Khan MD [address] [facility] [address] [place], [place] [address] PCP - General Family Medicine 07/24/24 Legal Office Administrator Relationship Specialty Start Date End Date Radha Khan MD [address] [facility] [address] [place], [place] [id number] PCP - General Family Medicine 07/24/24 Legal Office Administrator Relationship Specialty Start Date End Date Radha Khan MD [address] [facility] [address] [place] [address] PCP - General Family Medicine 07/24/24 Team Status: Active Member Role Status Dates Brandt Winter MD Primary Care Provider Active Team Status: Inactive Member Role Status Dates Dr. Radha Khan MD Primary Care Provider Active Start: April 12, 2024 End: April 15, 2024 Dr. Luli Alex DO Referring Provider Active S tart: April 12, 2024 End: April 15, 2024 Dr. Luli Alex DO Emergency Provider Active S tart: April 12, 2024 End: April 15, 2024 Dr. Eduin Ospina MD Admit Provider Active Star t: April 12, 2024 End: April 15, 2024 Dr. Eduin Ospina MD Other Provider Active Star t: April 12, 2024 End: April 15, 2024 Dr. Cuco Soler MD Attending Provider Active Start: April 12, 2024 End: April 15, 2024 Dr. Rafael Marc MD Other Provider Active Start: April 12, 2024 End: April 15, 2024 Dr. Andrea Murphy MD Other Provider Active Start: April 12, 2024 End: April 15, 2024 Dr. Jonathon Salas MD Other Provider Active Star t: April 12, 2024 End: April 15, 2024 Dr. Fran Rodriguez DO Other Provider Active Start : April 12, 2024 End: April 15, 2024 Dr. Eduin Swain MD Other Provider Active Sta rt: April 12, 2024 End: April 15, 2024 Dr. Aidan Cornell MD Other Provider Active St art: April 12, 2024 End: April 15, 2024 Dr. Brandon Cain MD Other Provider Active S tart: April 12, 2024 End: April 15, 2024 Dr. Catalina Dolan MD Other Provider Active Start: April 12, 2024 End: April 15, 2024 Dr. John Jones MD Other Provider Active Start : April 12, 2024 End: April 15, 2024 Dr. Conor Palafox MD Other Provider Active Start: April 12, 2024 End: April 15, 2024 Dr. Juan Diego Santoro MD Other Provider Active Start : April 12, 2024 End: April 15, 2024 Dr. Shameka Garcia MD Other Provider Active Star t: April 12, 2024 End: April 15, 2024 Dr. Shobha Larios MD Other Provider Active Sta rt: April 12, 2024 End: April 15, 2024 Dr. Brennan Valentine MD Other Provider Active Star t: April 12, 2024 End: April 15, 2024 Dr. Mane Gatica MD Other Provider Active St art: April 12, 2024 End: April 15, 2024 Dr. Nikolai Montemayor MD Other Provider Active Star t: April 12, 2024 End: April 15, 2024 Dr. Parish Viveros DO Other Provider Active St art: April 12, 2024 End: April 15, 2024 Dr. Cecile Queen MD Other Provider Active Start: April 12, 2024 End: April 15, 2024 Dr. Abdirahman Pal MD Other Provider Active St art: April 12, 2024 End: April 15, 2024 Dr. Thang Garcia DO Other Provider Active Start: April 12, 2024 End: April 15, 2024 Dr. Eric Bosch MD Other Provider Active Star t: April 12, 2024 End: April 15, 2024 Dr. David Leonard MD Other Provider Active Sta rt: April 12, 2024 End: April 15, 2024 Team Status: Active Member Role Status Dates Dr. Radha Khan MD Primary Care Provider Active Start: April 15, 2024 Dr. Luli Alex DO Referring Provider Active S tart: April 15, 2024 Dr. Luli Alex DO Emergency Provider Active S tart: April 15, 2024 Dr. Eduin Ospina MD Admit Provider Active Star t: April 15, 2024 Dr. Eduin Ospina MD Other Provider Active Star t: April 15, 2024 Dr. Cuco Soler MD Other Provider Active Sta rt: April 15, 2024 Dr. Rafael Marc MD Other Provider Active Start: April 15, 2024 Dr. Andrea Murphy MD Other Provider Active Start: April 15, 2024 Dr. Jonathon Salas MD Other Provider Active Star t: April 15, 2024 Dr. Fran Rodriguez DO Attending Provider Active S tart: April 15, 2024 Dr. Fran Rodriguez DO Other Provider Active Start : April 15, 2024 Dr. Eduin Swain MD Other Provider Active Sta rt: April 15, 2024 Dr. Aidan Cornell MD Other Provider Active St art: April 15, 2024 Dr. Brandon Cain MD Other Provider Active S tart: April 15, 2024 Dr. Catalina Dolan MD Other Provider Active Start: April 15, 2024 Dr. John Jones MD Other Provider Active Start : April 15, 2024 Dr. Conor Palafox MD Other Provider Active Start: April 15, 2024 Dr. Juan Diego Santoro MD Other Provider Active Start : April 15, 2024 Dr. Shameka Garcia MD Other Provider Active Star t: April 15, 2024 Dr. Shobha Larios MD Other Provider Active Sta rt: April 15, 2024 Dr. Brennan Valentine MD Other Provider Active Star t: April 15, 2024 Dr. Mane Gatica MD Other Provider Active St art: April 15, 2024 Dr. Nikolai Montemayor MD Other Provider Active Star t: April 15, 2024 Dr. Parish Viveros DO Other Provider Active St art: April 15, 2024 Dr. Cecile Queen MD Other Provider Active Start: April 15, 2024 Dr. Abdirahman Pal MD Other Provider Active St art: April 15, 2024 Dr. Thang Garcia DO Other Provider Active Start: April 15, 2024 Dr. Eric Bosch MD Other Provider Active Star t: April 15, 2024 Dr. David Leonard MD Other Provider Active Sta rt: April 15, 2024 Team Status: Active Member Role Status Dates Dr. Radha Khan MD Primary Care Provider Active Start: April 15, 2024 Dr. Luli Alex DO Emergency Provider Active S tart: April 15, 2024 Dr. Eduin Ospina MD Admit Provider Active Star t: April 15, 2024 Dr. Eduin Ospina MD Other Provider Active Star t: April 15, 2024 Dr. Cuco Soler MD Attending Provider Active Start: April 15, 2024 Dr. Cuco Soler MD Other Provider Active Sta rt: April 15, 2024 Dr. Rafael Marc MD Other Provider Active Start: April 15, 2024 Dr. Andrea Murphy MD Other Provider Active Start: April 15, 2024 Dr. Jonathon Salas MD Other Provider Active Star t: April 15, 2024 Dr. Fran Rodriguez DO Other Provider Active Start : April 15, 2024 Dr. Eduin Swain MD Other Provider Active Sta rt: April 15, 2024 Dr. Aidan Cornell MD Other Provider Active St art: April 15, 2024 Dr. Brandon Cain MD Other Provider Active S tart: April 15, 2024 Dr. Catalina Dolan MD Other Provider Active Start: April 15, 2024 Dr. John Jones MD Other Provider Active Start : April 15, 2024 Dr. Conor Palafox MD Other Provider Active Start: April 15, 2024 Dr. Juan Diego Santoro MD Other Provider Active Start : April 15, 2024 Dr. Shameka Garcai MD Other Provider Active Star t: April 15, 2024 Dr. Shobha Larios MD Other Provider Active Sta rt: April 15, 2024 Dr. Brennan Valentine MD Other Provider Active Star t: April 15, 2024 Dr. Mane Gatica MD Other Provider Active St art: April 15, 2024 Dr. Nikolai Montemayor MD Other Provider Active Star t: April 15, 2024 Dr. Parish Viveros DO Other Provider Active St art: April 15, 2024 Dr. Cecile Queen MD Other Provider Active Start: April 15, 2024 Dr. Abdirahman Pal MD Other Provider Active St art: April 15, 2024 Dr. Thang Garcia DO Other Provider Active Start: April 15, 2024 Dr. Eric Bosch MD Other Provider Active Star t: April 15, 2024 Dr. David Leonard MD Other Provider Active Sta rt: April 15, 2024 Team Status: Inactive Member Role Status Dates Dr. Radha Khan MD Primary Care Provider Active Start: April 16, 2024 End: April 16, 2024 Dr. Radha Khan MD Referring Provider Active Start: April 16, 2024 End: April 16, 2024 Coreen Gerardo NP-C Attending Provider Active Start: April 16, 2024 End: April 16, 2024 Team Status: Inactive Member Role Status Dates Dr. Radha Khan MD Primary Care Provider Active Start: April 22, 2024 End: April 22, 2024 Dr. Radha Khan MD Referring Provider Active Start: April 22, 2024 End: April 22, 2024 JING PeñaC Attending Provider Active Start: April 22, 2024 End: April 22, 2024 Team Status: Inactive Member Role Status Dates Dr. Radha Khan MD Primary Care Provider Active Start: April 24, 2024 End: April 24, 2024 Dr. aRdha Khan MD Attending Provider Active Start: April 24, 2024 End: April 24, 2024 Dr. Radha Khan MD Referring Provider Active Start: April 24, 2024 End: April 24, 2024 Team Status: Inactive Member Role Status Dates Dr. Radha Khan MD Primary Care Provider Active Start: April 24, 2024 End: April 25, 2024 Dr. Daniel Mcneil DO Referring Provider Active Start: April 24, 2024 End: April 25, 2024 Dr. Daniel Mcneil DO Emergency Provider Active Start: April 24, 2024 End: April 25, 2024 Dr. Cookie Bell MD Admit Provider Active St art: April 24, 2024 End: April 25, 2024 Dr. Cookie Bell MD Other Provider Active St art: April 24, 2024 End: April 25, 2024 Edmund Dey MD Other Provider Active Start: go 2024 End: April 25, 2024 Dr. Kristin Boyd MD Other Provider Active Start: April 24, 2024 End: April 25, 2024 Amy Dumont MD Other Provider Active Start : April 24, 2024 End: April 25, 2024 Dr. Bethany Velasco DO Other Provider Active St art: April 24, 2024 End: April 25, 2024 Dr. Lucy Granado MD Other Provider Active Start: April 24, 2024 End: April 25, 2024 Dr. Giancarlo Lomeli MD Other Provider Active Sta rt: April 24, 2024 End: April 25, 2024 Dr. Patrizia Burk MD Other Provider Active Start : April 24, 2024 End: April 25, 2024 Dr. Alden Lazaro MD Other Provider Active Start: April 24, 2024 End: April 25, 2024 Dr. Julius Flores MD Other Provider Active Start : April 24, 2024 End: April 25, 2024 Dr. Fred Talbert MD Other Provider Active Sta rt: April 24, 2024 End: April 25, 2024 Jennifer Toledo MD Other Provider Active Start : April 24, 2024 End: April 25, 2024 Dr. Joao Arredondo MD Other Provider Active St art: April 24, 2024 End: April 25, 2024 Dr. Palak Garvin MD Other Provider Active Start : April 24, 2024 End: April 25, 2024 Dr. Michelle Lyons MD Other Provider Active Sta rt: April 24, 2024 End: April 25, 2024 Dr. Indigo Coates MD Other Provider Active Start: April 24, 2024 End: April 25, 2024 Dr. Lavelle Chakraborty MD Other Provider Active St art: April 24, 2024 End: April 25, 2024 Dr. Rogers Heart MD Other Provider Active Star t: April 24, 2024 End: April 25, 2024 Dr. Abrahan Bejarano MD Other Provider Active St art: April 24, 2024 End: April 25, 2024 Dr. Mindy Benítez MD Other Provider Active Start: April 24, 2024 End: April 25, 2024 Ryan Riley MD Other Provider Active Start: April 24, 2024 End: April 25, 2024 Dr. Ochoa Johnson DO Attending Provider Active Start: April 24, 2024 End: April 25, 2024 Team Status: Active Member Role Status Dates Dr. Radha Khan MD Primary Care Provider Active Start: April 24, 2024 Dr. Daniel Mcneil DO Emergency Provider Active Start: April 24, 2024 Dr. Cookie Bell MD Admit Provider Active St art: April 24, 2024 Dr. Cookie Bell MD Attending Provider Active Start: April 24, 2024 Dr. Cookie Bell MD Other Provider Active St art: April 24, 2024 Team Status: Active Member Role Status Dates Dr. Radha Khan MD Primary Care Provider Active Start: April 25, 2024 Dr. Daniel Mcneil DO Emergency Provider Active Start: April 25, 2024 Dr. Cookie Bell MD Admit Provider Active St art: April 25, 2024 Dr. Cookie Bell MD Other Provider Active St art: April 25, 2024 Dr. Ochoa Johnson DO Attending Provider Active Start: April 25, 2024 Team Status: Inactive Member Role Status Dates Dr. Radha Khan MD Primary Care Provider Active Start: April 30, 2024 End: April 30, 2024 Dr. Toni Vann MD Attending Provider Active Start: April 30, 2024 End: April 30, 2024 Dr. Toni Vann MD Referring Provider Active Start: April 30, 2024 End: April 30, 2024 Team Status: Inactive Member Role Status Dates Dr. Radha Khan MD Primary Care Provider Active Start: April 30, 2024 End: April 30, 2024 Dr. Radha Khan MD Referring Provider Active Start: April 30, 2024 End: April 30, 2024 Dr. Sumanth Hanna MD Attending Provider Active S tart: April 30, 2024 End: April 30, 2024 Team Status: Inactive Member Role Status Dates Dr. Radha Khan MD Primary Care Provider Active Start: April 30, 2024 End: April 30, 2024 Dr. Radha Khan MD Referring Provider Active Start: April 30, 2024 End: April 30, 2024 Dr. Ochoa Dobbs MD Attending Provider Active S tart: April 30, 2024 End: April 30, 2024 Team Status: Inactive Member Role Status Dates Dr. Radha Khan MD Primary Care Provider Active Start: May 01, 2024 End: May 01, 2024 Dr. Radha Khan MD Referring Provider Active Start: May 01, 2024 End: May 01, 2024 Chen Rojas NP-C Attending Provider Active Start: May 01, 2024 End: May 01, 2024 Team Status: Active Member Role Status Dates Dr. Radha Khan MD Primary Care Provider Active Start: May 05, 2024 Dr. Rito Lundberg MD Attending Provider Active Start: May 05, 2024 Dr. Rito Lundberg MD Referring Provider Active Start: May 05, 2024 Team Status: Inactive Member Role Status Dates Dr. Radha Khan MD Primary Care Provider Active Start: May 05, 2024 End: May 05, 2024 Dr. Radha Khan MD Referring Provider Active Start: May 05, 2024 End: May 05, 2024 Dr. Rito Lundberg MD Attending Provider Active Start: May 05, 2024 End: May 05, 2024 Team Status: Inactive Member Role Status Dates Dr. Radha Khan MD Primary Care Provider Active Start: May 21, 2024 End: May 21, 2024 Dr. Radha Khan MD Referring Provider Active Start: May 21, 2024 End: May 21, 2024 Lydia Segura PA, PA Attending Provider Active Start: May 21, 2024 End: May 21, 2024 Team Status: Inactive Member Role Status Dates Dr. Radha Khan MD Primary Care Provider Active Start: May 21, 2024 End: May 21, 2024 Lydia Segura PA, PA Attending Provider Active Start: May 21, 2024 End: May 21, 2024 Lydia Segura PA, PA Referring Provider Active Start: May 21, 2024 End: May 21, 2024 Team Status: Active Member Role Status Dates Dr. Radha Khan MD Primary Care Provider Active Start: May 28, 2024 Lydia Segura PA, PA Attending Provider Active Start: May 28, 2024 Lydia Segura PA, PA Referring Provider Active Start: May 28, 2024 Team Status: Active Member Role Status Dates Dr. Radha Khan MD Primary Care Provider Active Start: May 28, 2024 Dr. Sumanth Hanna MD Attending Provider Active S tart: May 28, 2024 Lydia GRIFFITHS, PA Referring Provider Active Start: May 28, 2024 Team Status: Inactive Member Role Status Dates Dr. Radha Khan MD Primary Care Provider Active Start: June 02, 2024 End: June 02, 2024 Chen Rojas NP-C Attending Provider Active Start: June 02, 2024 End: June 02, 2024 PITO Peña Referring Provider Active Start: June 02, 2024 End: June 02, 2024 Team Status: Inactive Member Role Status Dates Dr. Radha Khan MD Primary Care Provider Active Start: June 04, 2024 End: June 04, 2024 Dr. Toni Vann MD Attending Provider Active Start: June 04, 2024 End: June 04, 2024 Dr. Toni Vann MD Referring Provider Active Start: June 04, 2024 End: June 04, 2024 Team Status: Inactive Member Role Status Dates Dr. Radha Khan MD Primary Care Provider Active Start: June 10, 2024 End: June 10, 2024 Dr. Radha Khan MD Referring Provider Active Start: June 10, 2024 End: June 10, 2024 JING PeñaC Attending Provider Active Start: June 10, 2024 End: June 10, 2024 Team Status: Inactive Member Role Status Dates Dr. Radha Khan MD Primary Care Provider Active Start: July 06, 2024 End: July 06, 2024 Dr. Toni Vann MD Attending Provider Active Start: July 06, 2024 End: July 06, 2024 Dr. Toni Vann MD Referring Provider Active Start: July 06, 2024 End: July 06, 2024 Team Status: Inactive Member Role Status Dates Dr. Radha Khan MD Primary Care Provider Active Start: August 06, 2024 End: August 06, 2024 Dr. Radha Khan MD Referring Provider Active Start: August 06, 2024 End: August 06, 2024 Dr. Toni Vann MD Attending Provider Active Start: August 06, 2024 End: August 06, 2024 Team Status: Inactive Member Role Status Dates Dr. Radha Khan MD Primary Care Provider Active Start: August 12, 2024 End: August 12, 2024 Dr. Radha Khan MD Referring Provider Active Start: August 12, 2024 End: August 12, 2024 Sumanth AVILA MD Attending Provider Active St art: August 12, 2024 End: August 12, 2024 Team Status: Active Member Role Status Dates Brandt Winter MD Primary Care Provider Active St art: August 12, 2024 TUNDE Fernandez Attending Provider Active St art: August 12, 2024 TUNDE Fernandez Referring Provider Active St art: August 12, 2024 Team Status: Inactive Member Role Status Dates Brandt Winter MD Primary Care Provider Active St art: August 12, 2024 End: August 12, 2024 TUNDE Fernandez Attending Provider Active St art: August 12, 2024 End: August 12, 2024 TUNDE Fernandez Referring Provider Active St art: August 12, 2024 End: August 12, 2024 Team Status: Inactive Member Role Status Dates Dr. Radha Khan MD Referring Provider Active Start: August 17, 2024 End: August 17, 2024 Dr. Toni Vann MD Attending Provider Active Start: August 17, 2024 End: August 17, 2024 Brandt Winter MD Primary Care Provider Active St art: August 17, 2024 End: August 17, 2024 Legal Office Administrator Relationship Specialty Start Date End Date Radha Khan MD [address] [place] [address] PCP - General Family Medicine 07/24/24 Team Status: Inactive Member Role Status Dates Dr. Radha Khan MD Primary Care Provider Active Start: August 06, 2024 End: August 06, 2024 Dr. Toni Vann MD Attending Provider Active Start: August 06, 2024 End: August 06, 2024 Dr. Toni Vann MD Referring Provider Active Start: August 06, 2024 End: August 06, 2024 Team Status: Inactive Member Role Status Dates Dr. Radha Khan MD Referring Provider Active Start: September 15, 2024 End: September 15, 2024 Dr. Toni Vann MD Attending Provider Active Start: September 15, 2024 End: September 15, 2024 Brandt Winter MD Primary Care Provider Active St art: September 15, 2024 End: September 15, 2024 Team Status: Inactive Member Role Status Dates Coreen Gerardo NP-C Attending Provider Active Start: September 16, 2024 End: September 16, 2024 Brandt Winter MD Primary Care Provider Active St art: September 16, 2024 End: September 16, 2024 Brandt Winter MD Referring Provider Active Start : September 16, 2024 End: September 16, 2024 Legal Office Administrator Relationship Specialty Start Date End Date Radha Khan MD [address] [place] [address] PCP - General Family Medicine 07/24/24 Legal Office Administrator Relationship Specialty Start Date End Date Radha Khan MD [address] [facility] [address] [place] [address] PCP - General Family Medicine 07/24/24 Reason for Visit (unrecogniz ed section and content) Specialty Diagnoses / Procedures Referred By Luke t Referred To Contact Diagnoses carotid stenosis Procedures . Joe Rocha MD [address] [place] [address] [facility] [address] [address] Referral ID Status Reason Start Date Expiration Date Visits Re quested Visits Authorized [id number] 1 Reason Comments New Patient New stroke 10/02, mult iple mini strokes since. No current deficits per patient. Reason Comments Follow-up discuss carotid dupl ex 04/06/23 Reason Comments New Patient Visit Reason Comments pt fuv Reason Comments Follow-up Scheduled Active and Recently Administ ered Medications (unrecognized section and content) Medication Order 10/03/2023 10/04/2023 10/05/2023 amLODIPine (Norvasc) tablet 5 mg 5 mg, Oral, Daily, First dose on Sat10/04/23 at 0900 09 (Given - Provider: Nely Lambert RN) 08 (Given - Provider: Dariana Lawrence, CAMILA) apixaban (Eliquis) tablet 5 mg 5 mg, Oral, 2 times daily, First dose on Sat10/03/23 at 2130, Anticoagulant 2242 (Given - Provider: Dalila Helms RN) 905 (Given - Provider: Nely Lambert, CAMILA)2033 (Given - Provider: Dalila Helms RN) 08 (Given - Provider: Dariana Lawrence RN) aspirin EC tablet 81 mg 81 mg, Oral, Daily, First dose on Sat10/04/23 at 0900, Do not crush, chew, or split. 09 (Given - Provider: Nely Lambert RN) 825 (Given - Provider: Dariana Lawrence RN) atorvastatin (Lipitor) tablet 80 mg 80 mg, Oral, Nightly, First dose on Sat10/03/23 at 2130 2242 (Given - Provider: Dalila Helms RN) 2033 (Given - Provider: Dalila Helms RN) busPIRone (Buspar) tablet 10 mg 10 mg, Oral, 3 times daily, First dose on Sat10/03/23 at 2130 2242 (Given - Provider: Dalila Helms RN) 899 (Given - Provider: Nely Lambert RN)132 (Given - Provider: Nely Lambert, CAMILA)2033 (Given - Provider: Dalila Helms RN) 08 (Given - Provider: Dariana Lawrence, CAMILA)1403 (Given - Provider: Dariana Lawrence, CAMILA) dapagliflozin (Farxiga) tablet 5 mg 5 mg, Oral, Daily, First dose on Sat10/04/23 at 0900 0905 (Given - Provider: eNly Lambert RN) 08 (Given - Provider: Dariana Lawrence, CAMILA) DULoxetine (Cymbalta) DR capsule 60 mg 60 mg, Oral, Daily, First dose on Sat10/04/23 at 0900, Do not crush or chew. 0906 (Given - Provider: Nely Lambert RN) 0826 (Given - Provider: Dariana Lawrence RN) furosemide (Lasix) tablet 40 mg 40 mg, Oral, 2 times daily, First dose on Sat10/04/23 at 0600 0555 (Given - Provider: Dalila Helms RN)1627 (Given - Provider: Nely Lambert RN) 0623 (Given - Provider: Dalila Helms RN)1500 (Not Given - Provider: Dariana Lawrence RN - Reason: Patient/family refused - Comment: patient states he will take once he gets home) glipiZIDE (Glucotrol) tablet 5 mg 5 mg, Oral, Daily before breakfast, First dose on Sat10/04/23 at 0600, Substituted for glimepiride (Amaryl). 0555 (Given - Provider: Dalila Helms RN) 06 (Given - Provider: Dalila Helms RN) insulin regular (HumuLIN R,NovoLIN R) injection 20 Units 20 Units, SubCUTAneous, 3 times daily with meals, First dose on Sat10/04/23 at 0800 1029 (Given - Provider: Nely Lambert RN)1321 (Given - Provider: Nely Lambert RN)1736 (Given - Provider: Nely Lambert RN) 0826 (Given - Provider: Dariana Lawrence RN)1154 (Given - Provider: Dariana Lawrence RN)1700 (Canceled Entry - Provider: Automatic Discharge Provider - Comment: Automatically canceled at discontinue of medication order) levothyroxine (Synthroid, Levoxyl) tablet 112 mcg 112 mcg, Oral, Daily before breakfast, First dose on Sat10/04/23 at 0600, Tube feeding (TF) interaction, obtain physician order to manage, recommend holding TF for 30 minutes before and after dose. 0555 (Given - Provider: Dalila Helms RN) 0623 (Given - Provider: Dalila Helms RN) metoprolol succinate XL (Toprol-XL) 24 hr tablet 100 mg 100 mg, Oral, Daily, First dose on Sat10/04/23 at 0900, Do not crush or chew. 09 (Given - Provider: Nely Lambert RN) 08 (Given - Provider: Dariana Lawrence, CAMILA) pantoprazole (ProtoNix) EC tablet 40 mg 40 mg, Oral, Daily before breakfast, First dose on Sat10/04/23 at 0600, Do not crush, chew, or split. 05 (Given - Provider: Dalila Helms, CAMILA) 06 (Given - Provider: Dalila Helms RN) sodium chloride 0.9 % bolus 250 mL (COMPLETED) 250 mL, IntraVENous, at 250 mL/hr, Administer over 1 Hours, Once, On Sat10/04/23 at 0630, For 1 dose 06 (New Bag - Provider: Nely Lambert RN)07 (Stopped - Provider: Nely Lambert RN) sodium chloride 0.9% (NS) flush 5-40 mL 5-40 mL, IntraVENous, Every 12 hours, First dose on Sat10/04/23 at 0630, For Line Patency: Peripheral IV = 5 mL; Midline or Central Line = 10 mL/lumen. If following IV push medication, administer flush at same rate as the IV push. Flush volume is determined by type of infusion therapy being given. For non-viscous solutions use: Peripheral IV = 5 mL Midline or Central Line = 10 mL/lumen For viscous solutions (i.e. blood components, parenteral nutrition, contrast media, or after obtaining blood sample) use: Peripheral IV = 10 mL Midline or Central Line = 20 mL/lumen 0630 (Given - Provider: Nely Lambert RN)1830 (Given - Provider: Nely Lambert RN) 06 (Given - Provider: Dalila Helms, CAMILA) tamsulosin (Flomax) 24 hr capsule 0.4 mg 0.4 mg, Oral, Daily, First dose on Sat10/04/23 at 0900, Do not crush, chew, or split. 09 (Given - Provider: Nely Lambert RN) 08 (Given - Provider: Dariana Lawrence, RN) Continuous Medication Order 10/03/2023 10/04/2023 10/05/2023 sodium chloride 0.9 % infusion (CANCELED) 50 mL/hr, IntraVENous, Continuous, Starting on Sat10/04/23 at 0630 0900 (New Bag - Provider: Nely Lambert, RN)1100 (Stopped - Provider: Nely Lambert RN - Comment: ok to stop when eating and drinking) PRN Medication Order 10/03/2023 10/04/2023 10/05/2023 dextrose 5 % infusion 100 mL/hr, IntraVENous, PRN, Blood sugar less than 70mg/dL, Starting on Sat10/03/23 at 2125, Start infusion following administration of dextrose 50% or glucagon. dextrose 50 % solution 12.5 g 12.5 g, IntraVENous, PRN, low blood sugar, Blood glucose less than 70 mg/dL and patient NOT ALERT or NPO., Starting on Sat10/03/23 at 2125, If patient does not respond within 5 minutes, repeat dose x1. Start D5W at 100 mL/hour until ordering provider can be reached. Repeat blood glucose in 15 minutes. If blood glucose is less than 70 mg/dL, repeat treatment and recheck blood glucose in 15 minutes x2. If using Glucostabilizer, dose as instructed per system. glucagon (human recombinant) injection 1 mg 1 mg, IntraMUSCular, PRN, low blood sugar, Blood glucose less than 70 mg/dL and patient NOT ALERT or NPO and does not have IV access., Starting on Sat10/03/23 at 2125, After administration, attempt intravenous access and start D5W at 100 mL/hr. Repeat blood glucose in 15 minutes x2 and notify provider. glucose oral gel 15 g 15 g, Oral, As needed, low blood sugar, Starting on Sat10/03/23 at 2125, If blood glucose less than 50 mg/dL and patient ALERT and NOT NPO, give 2 tubes glucose gel. If blood glucose less than 70 mg/dL and patient ALERT and NOT NPO, give 1 tube glucose gel. Repeat blood glucose in 15 minutes. If blood glucose is less than 70 mg/dL, repeat treatment and recheck blood glucose in 15 minutes x2 and notify provider. labetalol (Normodyne,Trandate) injection 10 mg 10 mg, IntraVENous, Every 10 min PRN, high blood pressure, Starting on Sat10/04/23 at 0618, For 2 doses, Give over 1-2 minutes; Hold for HR less than 65 bpm and notify provider. PRE thrombolytic administration give if SBP greater than 185 mmHg or DBP greater than 110 mmHg prior to planned administration. May repeat x1 if SBP greater than 185 mmHg or DBP greater than 110 mmHg. Notify physician if SBP greater than 185 mmHg or DBP greater than 110 mmHg after second dose. POST thrombolytic administration give if SBP greater than 180 mmHg or DBP greater than 105 mmHg. May repeat x1 if SBP greater than 180 mmHg or DBP greater than 105 mmHg. Notify physician if SBP greater than 180 mmHg or DBP greater than 105 mmHg after second dose. sodium chloride 0.9 % infusion 5-250 mL/hr, IntraVENous, PRN, if patient receiving piggyback infusions and maintenance fluids are not ordered OR KVO fluids to protect IV site / prevent frequent line interruptions / long duration, Starting on Sat10/04/23 at 0618, For piggyback infusion, administer at same rate as piggyback for a total of 25 mL. Enter 25 mL into dose field and piggyback rate into rate field of order. If piggyback is infusing at a rate less than 100 mL/hr, enter 25 mL into dose field and 100 mL/hr into rate field of order. For KVO fluids, enter rate of 20 mL/hr or less into rate field of order. sodium chloride 0.9% (NS) flush 5-40 mL 5-40 mL, IntraVENous, PRN, line care, After every IV line use, Starting on Sat10/04/23 at 0618, For Line Patency: Peripheral IV = 5 mL; Midline or Central Line = 10 mL/lumen. If following IV push medication, administer flush at same rate as the IV push. Flush volume is determined by type of infusion therapy being given. For non-viscous solutions use: Peripheral IV = 5 mL Midline or Central Line = 10 mL/lumen For viscous solutions (i.e. blood components, parenteral nutrition, contrast media, or after obtaining blood sample) use: Peripheral IV = 10 mL Midline or Central Line = 20 mL/lumen FOR RECORDS PERTAINING TO PATIENTS WHO ARE [...] BE BASED ON THE PRIMARY CLINICAL RECORDS. [facility]. provides no warranty or guarantee of the accuracy or completeness of information in this document.
[2024-09-26 16:32] LABS: Anion Gap 15 (5-15); BUN 31 mg/dL (4-19); BUN/Creat Ratio 24.6 RATIO (10-20); Carbon Dioxide 22.9 mmol/L (21.0-32.0); Chloride 100 mmol/L (98-108); Creatinine, Serum 1.26 mg/dL (0.70-1.20); EST Glomerular Filtration Rate 65 (>60); Glucose 246 mg/dL (70-99); Potassium 4.2 mmol/L (3.3-5.1); Sodium Level 138 mmol/L (133-145); Troponin T High Sensitivity 47 ng/L (<=22)
[2024-09-26 16:42] LABS: Partial Thromboplast Time 20.8 Seconds (24.1-36.2); Prothrombin Time (Protime)PT. 13.1 SECONDS (11.7-14.9)
--- NOTE | 2024-09-26 17:06 | CT_ITS ---
PROCEDURE: STROKE CTA HEAD AND NECK W/CON 09/26/2024 REASON FOR EXAM: CONCERN FOR CVA, LKW 09/25 @ 2PM TECHNIQUE: STROKE CTA HEAD AND NECK W/CON Multiplanar Sagittal and Coronal images were obtained. 3D post processing was performed CONTRAST: Isovue 370 VOLUME: 100 mL One or more dose reduction techniques were used (e.g., Automated exposure control, adjustment of the mA and/or kV according to patient size, use of iterative reconstruction technique). RADIATION DOSE SUMMARY: DLP: 737 mGycm COMPARISON: Same-day CT head noncontrast. CTA head and neck 04/24/2024. FINDINGS: See same day noncontrast CT head for discussion of nonvascular findings. Visualization is slightly limited by motion artifact. CTA neck: Three-vessel aortic arch with scattered mixed calcific plaque. 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 There is distal retrograde filling of the left V4 segment via the basilar artery. There is scattered mixed plaque of the right cervical vertebral artery. Unchanged calcific plaque of the bilateral cervical carotid arteries without hemodynamically significant stenosis by NASCET criteria. CTA head: Calcific plaque of the bilateral carotid siphons without focal stenosis or narrowing. 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 There is thread-like reconstitution/retrograde filling of the distal right MCA. The bilateral anterior and posterior cerebral arteries are widely patent. Major venous structures: Unremarkable. Other findings: Visualization of the lung parenchyma is limited by motion artifact. Biapical ground-glass opacities with secretions within the central trachea. Stable bilateral thyroid nodules. Cervical spondylosis. CT/STROKE CTA Head AND Neck W/Con IMPRESSION: 1. 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 Correlation with CT perfusion or MRI recommended to evaluate for chronicity. 2. 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 3. Biapical ground-glass opacities with central tracheal secretions, most nadeem tible with aspiration pneumonitis/pneumonia. Dr. Newberry discussed critical findings via telephone with Dr. Berrios At 6:31 pm on 09/26/24. Reading Location: [id number]
--- OUTSIDE RECORDS SUMMARY | 2024-09-26 17:23 | XMS RPT_ITS | CCD ---
Author Organization [facility] Care Team Providers Care Medical Supervisor Name Role Phone Radha Khan Primary Care [...] Dr. Sumanth Hanna Attending Provider Dr. Krunal Paet Attending Provider Dr. Krunal Pate Other Provider PITO Chin NP Attending Provider Dr. Radha Khan Primary Care Provider Dr. Radha Khan Referring Provider PITO Sky NP Attending Provider PITO Gerardo Attending Provider [phone] Jonathon Salas Attending Provider Dr. Jonathon Salas Other Provider Dr. Fran Rodriguez Attending Provider Dr. Radha Khan Primary Care Provider Dr. Radha Khan Referring Provider Dr. Jonathon Salas Referring Provider Roof HR SYSTEMS ANALYST, SAV-Surinder Jackson Attending Provider Dr. Radha Khan Primary Care Provider Dr. Radha Khan Referring Provider PITO Gerardo Attending Provider Roof HR SYSTEMS ANALYST, SAV-Surinder Jackson Attending Provider Vallejo HR SYSTEMS ANALYST, SAV-Surinder Childress Attending Provider Dr. Radha Khan Primary Care Provider Dr. Radha Khan Referring Provider PITO Gerardo Attending Provider Dr. Nely Hill Emergency Provider Dr. Cookie Bell Admit Provider Dr. Cookie Bell Other Provider Dr. Eduin Ospina Attending Provider Unavailable Dr. Eduin Ospina Other Provider Unavailable Dr. Burt Herrera Attending Provider Dr. Radha Khan Primary Care [...] Dr. Karol Rushing Attending Provider Dr. Radha Khan Primary Care Provider Dr. Radha Khan Referring Provider PITO Geradro Attending Provider Dr. Karol Rushing Attending Provider Roof HR SYSTEMS ANALYSTPITO Attending Provider Dr. Toni Vann Attending Provider [...] Provider Dr. Radha Khan Referring Provider Roof HR SYSTEMS ANALYSTPITO Attending Provider Dr. Karol Rushing Attending Provider Dr. Toni Vann Attending Provider Dr. Karol Rushing Other Provider Sarika PA, PA-C Shanti Referring Provider RON Zimmerman Other Provider Dr. Francois Valiente Attending Provider Dr. Francois Valiente Referring Provider PITO Gerardo Attending Provider Dr. Radha Khan Primary Care Provider Dr. Radha Khan Referring Provider [facility] SAV, PITO Jackson Attending Provider Dr. Ochoa Dobbs Attending Provider DR RADHA KHAN MD Primary Care Physician Radha Khan Primary Care Provider CHITRA DUKESN-SACK LIFTER, CHITO Nuñez Referring Unavailable GALINDO-GABRIELA ECOLOGICAL ECONOMIST-SACK LIFTER, CHITO Nuñez Attending Unavailable CHITRA ECOLOGICAL ECONOMIST-SACK LIFTER, CHITO Nuñez Admitting Unavailable AMBER OROZCO MD [...] Khan MD, Radha Melendez Primary Care Provider [phone] NEREIDA, MAROUN Referring Unavailable NEREIDA, MAROUN Referring Unavailable JOLLIFF, RADHA JOSHUA Primary Care Unavailable NEREIDA, MAROUN Referring Unavailable JOLLIFF, RADHA JOSHUA Primary Care Unavailable NEREIDA, MAROUN Referring Unavailable JOLLIFF, RADHA JOSHUA Primary Care Unavailable Bill MCRAE, Dr. Radha Mcmahon Primary Care Provider [phone] Isai PUTNAM, Dr. Rockwell Referring Provider Isai PUTNAM, Dr. Rockwell Emergency Provider Bhavesh [...] Provider Dr. Conor Palafox MD Other Provider [phone] Yvan MCRAE, Dr. Adamson Other Provider Jose MCRAE, Dr. Myles Other Provider [phone] Shobha Larios MD [facility] Brennan Jimenez MD Other Provider Gavi [...] MCRAE, Dr. Radha Mcmahon Referring Provider Akin HR SYSTEMS ANALYST-C, Coreen Attending Provider Bob HR SYSTEMS ANALYST-C, Chen Nuñez Attending Provider Bill MCRAE, Dr. [...] Provider Loy MCRAE, Dr. Ayala Other Provider [phone] Yani MCRAE, Dr. Mondragon Other Provider Wm MCRAE, Dr. Acharya Other Provider [phone] Dr. Alden Lazaro MD Other Provider [phone] Dr. Julius Flores MD Other Provider Nitish MCRAE, Dr. Ibarra Other Provider Jennifer Toledo MD Other Provider Maria Elena MCRAE, Dr. Shepherd Other Provider Bharathi MCRAE, Dr. Palak Other Provider Serena MCRAE, Dr. Martinez Other Provider Dr. Indigo Coates MD Other Provider Palmer MCRAE, Dr. Valderrama Other Provider Una MCRAE, Dr. Mccloud Other Provider Darci MCRAE, Dr. Gauthier Other Provider Esmer MCRAE, Dr. Guillen Other Provider Unavailable [...] Jacques MCRAE, Dr. Julio Attending Provider [phone] Bob HR SYSTEMS ANALYST-CChen Attending Provider Bob HR SYSTEMS ANALYST-C, Chen Nuñez Referring Provider Soo MCRAE, Dr. Muñoz Attending Provider Dr. Toni Vann MD Referring Provider Sumanth Hanna MD Attending Provider Unavailable Moy MCRAE, Brandt Primary Care Provider Khadar Salguero Attending Provider Khadar Salguero Referring Provider Akin ANG-CCoreen Attending Provider [phone] Brandt Winter MD Referring Provider Jolliff, Radha S Primary Care Unavailable PrasanthSameer Attending Unavailable Sameer Rader Referring Unavailable Roof HR SYSTEMS ANALYST, Oren H Attending Unavailable Roof HR SYSTEMS ANALYST, Oren H Referring Unavailable Jolliff, Radha S [...] Jolliff, Radha S Primary Care Unavailable Yoni HR SYSTEMS ANALYST, Fior Attending Unavailable Yoni HR SYSTEMS ANALYST, Fior Referring Unavailable Jolliff, Radha S Primary Care Unavailable Thelmadour, Toni Referring Unavailable Baddour Toni Attending Unavailable Jolliff, Radha S Primary Care Unavailable Armin Raderrey Referring Unavailable PrasanthSameer Attending Unavailable Jolliff, Radha S Referring Unavailable Jolliff, Radha S Attending Unavailable Jolliff, Radha S Primary Care Unavailable Lydia Jiménez Referring Unavail able Lydia Jiménez Attending Unavail able Jolliff, Radha S Primary Care Unavailable Brandt Winter Primary Care Unavailable Khadar Valencia Attending Unavailable Khadar Valencia Referring Unavailable Jolliff, Radha S Primary Care Unavailable Roof HR SYSTEMS ANALYST, Oren Jackson Attending Unavailable Toni Vann Referring Unavailable Roof HR SYSTEMS ANALYST, Oren Jackson Attending Unavailable Roof HR SYSTEMS ANALYST, Oren Jackson Referring Unavailable Jolliff, Radha S Primary Care Unavailable Ochoa Johnson Attending Unavailable Edmund Dey Consulting Unavailable Daniel Mcneil Referring Unavailable Cookie Bell Admitting Unavailable Jolliff, Radha S Primary Care Unavailable Adeli, Amir Consulting Unavailable Hindualfredo, Amy Consulting Unavailable Rod, Bethany Consulting Unavailable Loy Lucy Consulting Unavailable YaniGiancarlo yu Consulting Unavailable WmPatrizia sesay Consulting Unavailable [...] Attending Unavailable Moy, Chalon Primary Care Unavailable PalisadeOchoa baum Attending Unavailable Jolliff, Radha S Referring Unavailable Jolliff, Radha S Primary Care Unavailable Jolliff, Radha S Primary Care Unavailable Eduin Ospina Admitting Unavailable Cuco Soler Attending Unavailable Luli Alex Referring Unavailable Eduin Ospina Consulting Unavailable Harriet [...] Unavailable Jolliff, Radha S Referring Unavailable Asya HR SYSTEMS ANALYST, Oren Jackson Attending Unavailable Jolliff, Radha S Referring Unavailable BaddourToni Attending Unavailable Jolliff, Radha S Primary Care Unavailable Jolliff, Radha S Primary Care Unavailable Vallejo HR SYSTEMS ANALYST, Fior Referring Unavailable Vallejo HR SYSTEMS ANALYST, Fior Attending Unavailable Jolliff, Radha S Referring [...] Unavailable Jolliff, Radha S Referring Unavailable [place]le[place] HR SYSTEMS ANALYST, Fior Attending Unavailable Jolliff, Radha S Referring Unavailable Coreen Gerardo Attending Unavailable Jolliff, Radha S Primary Care Unavailable Jolliff, Radha S Referring Unavailable Bethany Shelley Attending Unavailable Jolliff, Radha S Primary Care Unavailable Chen Rojas Attending Unavailable Jolliff, Radha S Referring Unavailable Jolliff, Radha S Primary Care Unavailable Eduin Ospina Attending Unavailable Jolliff, Radha S Primary Care Unavailable Fran Rodriguez Attending Unavailable [place]le[place] HR SYSTEMS ANALYST, Fior Referring Unavailable Jolliff, Radha S Primary Care Unavailable Asya HR SYSTEMS ANALYST, Oren H Attending Unavailable Jolliff, Radha S Primary Care Unavailable Roof HR SYSTEMS ANALYST, Oren H Referring Unavailable Sumanth Hanna Attending [...] Jolliff, Radha S Primary Care Unavailable Yoni HR SYSTEMS ANALYST, Fior Referring Unavailable Yoni HR SYSTEMS ANALYST, Fior Attending Unavailable Armin Fermin Attending Unavailable [...] Care Unavailable Fran Rodriguez Attending Unavailable Yoni HR SYSTEMS ANALYST, Fior Consulting Unavailable Vallejo HR SYSTEMS ANALYST, Fior Referring Unavailable Roof HR SYSTEMS ANALYST, Oren H Referring Unavailable JacquesSumanth Attending Unavailable Jolliff, Radha S Primary Care Unavailable Roof HR SYSTEMS ANALYST, Oren H Consulting Unavailable Jolliff, Radha S Primary Care Unavailable Jolliff, Radha S Referring Unavailable Friend, Ede Attending Unavailable Friend, Ede Consulting Unavailable Jolliff, Radha S Primary Care Unavailable Fran Rodriguez Attending Unavailable [place] HR SYSTEMS ANALYST, Fior Consulting Unavailable [place]le[place] HR SYSTEMS ANALYST, Fior Referring Unavailable Jolliff, Radha S Referring Unavailable Ochoa Dobbs Attending Unavailable Jolliff, Radha S Primary Care Unavailable BaddourToni Attending Unavailable Baddour Toni Referring Unavailable Jolliff, Radha S Primary Care Unavailable Jolliff, Radha S Referring Unavailable Ajcques, [place] Attending Unavailable Jolliff, Radha S Primary Care [...] Unavailable Jolliff, Radha S Primary Care Unavailable Moy, Chalon Referring Unavailable Moy, Chalon Primary Care [...] Unavailable JOLLIFF, RADHA JOSHUA Primary Care Unavailable NEERIDASOUMYAOUN Attending Unavailable JOLLIFF, RADHA JOSHUA Primary Care Unavailable BRAHMANDAM, SRUTI Attending Unavailable BRAHMANDAM, SRUTI Referring Unavailable JOLLIFF, RADHA JOSHUA Primary Care Unavailable BRAHMANDAM, SRUTI Referring Unavailable JOLLIFF, RADHA JOSHUA Primary Care Unavailable Allergies Allergy Classification Reported Allergen(s) Allergy Type Date of Onset Reaction(s) Facility DOPamine Antagonists (1 source) Metoclopramide; Translations: [metoclopramide] Drug Allergy [facility] (20 sources) Metoclopramide Drug Allergy 6 Shortness of Breath [facility] (20 sources) Metoclopramide; Translations: [METOCLOPRAMIDE] Drug Allergy 6 Anaphylaxis, Shortness of breath [facility] (1 source) Metoclopramide Drug Allergy [facility] Repository Medications Current Medications Medication Drug [...] as needed for severe pain (7-10). Active [id number] 200 actuat albuterol 0.09 mg/actuat metered dose [...] 24 hrs Blood-Glucose Meter,Continuo us (Dexcom G6 Instrument Technologist) misc (20 sources) Start: 07-26-2020 Blood-Glucose Meter,Continuous (Dexcom G6 Instrument Technologist) misc Active 0 .ROUTE .MEDSUPPLY July 26, 2020 12:36pm As directed Start: 07-26-2020 Blood-Glucose Meter,Continuous (Dexcom G6 Instrument Technologist) misc Active 0 .ROUTE .MEDSUPPLY July 25, 2020 11:00pm As directed Start: 07-26-2020 Blood-Glucose Meter,Continuous (Dexcom G6 Instrument Technologist) [facility] Active 0 .ROUTE .MEDSUPPLY 1 July 26, [...] 12:00am June 01, 2021 3:34pm As directed Blood-Glucose,Instrument Technologist,Cont (Dexcom G6 Instrument Technologist) misc (2 sources) Start: 07-26-2020 Blood-Glucose,Instrument Technologist,Cont (Dexcom G6 Instrument Technologist) misc Active 0 .ROUTE .MEDSUPPLY 1 July [...] Start: 04-05-2023 take 1 capsule by mo [facility] every week ergocalciferol (Vitamin D2) 1.25 MG (63031 UT) capsule Take 1 capsule by mouth [...] Agonist Start: 02-14-2023 End: 05-06-2024 HYDROcodone-acetami nophen (Jordan) 5-325 MG tablet Take 1 tablet by [...] extended release oral tablet (20 sources) Uncompetitive C-gwzzat-U-aspartate Receptor Antagonist, Sigma-1 Agonist Start: End: Dextromethorphan-Guai [...] aftercare (5 sources) Drug therapy finding; Translations: [supervising film or videotape editor (current) use of anticoagulants] 03-05-2024 Episodic Other aftercare (10 sources) Long-term current use of anticoagulant; Translations: [FPC (current) use of anticoagulants] 11-24-2023 Episodic Other aftercare (1 source) FPC (current) use of insulin; Translations: [supervising film or videotape editor (current) use of insulin] Onset: 5 Episodic [...] 05-30-2007 05-30-2007 Episodic Other aftercare (1 source) FPC (current) use of anticoagulants; Translations: [supervising film or videotape editor (current) use of anticoagulants] Onset: 05-05-2024 Episodic [...] Galactomannan Ag IA Qn 0.027 Normal <0.500 [facility] Comment on above: Result Comment: Inte rpretation: [...] Aspergillus Galactomannan EIA is a product of [employer] and is FDA approved for in vitro diagnostic use. Testing Performed at: [facility] [address] [place] [address], [facility] [address] [place] [address] Central Services Tech: José Harris, PhD BHAVNA (MELY) CLIA # [id number] FLAG Interpretation: A = Abnormal, H = High, L = Low Performed By: #### A SPQN ####[facility] ([id number] [place] [address] BASIC METABOLIC PANEL WITH A NIGEOVANNI GAPon 09-24-2024 Calcium [Mass/Vol] 8.7 mg/dL Normal 8.6-10.3 [facility] Comment on above: Order Comment: FASTI NG:YES FASTING: YES Performed By: #### 9 552, 1759 #### [facility] [address], [address] [place] [address] Event Sales Assistant: Octavio Segovia MD Chloride [Moles/Vol] 102 mmol/L Normal 98-110 [facility] Comment on above: Order Comment: FASTI NG:YES FASTING: YES Performed By: #### 9 366, 1759 #### [facility] [place] [address] Event Sales Assistant: Octavio Segovia MD CO2 [Moles/Vol] 20 mmol/L Normal 20-32 [facility] Comment on above: Order Comment: FASTI NG:YES FASTING: YES Performed By: #### 9 125, 1759 #### [facility] [address], [address] [place] [address] Event Sales Assistant: Octavio Segovia MD Creatinine [Mass/Vol] 1.49 mg/dL High 0.70-1.35 [facility] Comment on above: Order Comment: FASTI NG:YES FASTING: YES Performed By: #### 9 510, 175 #### [facility] [place] [address] Event Sales Assistant: Octavio Segovia MD ELECTROLYTE BALANCE 14 mmol/L (calc) Normal 7-17 [facility] Comment on above: Order Comment: FASTI NG:YES FASTING: YES Performed By: #### 9 866, 1759 #### [facility] [place] [address] Event Sales Assistant: Octavio Segovia MD GFR/1.73 sq M.predicted among non-blacks MDRD (S/P/Bld) [Vol rate/Area] 53 mL/min/{1.73_m2} Low > OR = 60 [facility] Comment on above: Order Comment: FASTI NG:YES FASTING: YES Performed By: #### 9 2497, 1759 #### [facility] [address], [address] [place] [address] Event Sales Assistant: Octavio Segovia MD Glucose [Mass/Vol] 304 mg/dL High 65-99 [facility] Comment on above: Order Comment: FASTI NG:YES FASTING: YES Result Comment: Fasting reference interval For someone without known diabetes, a glucose value >125 mg/dL indicates that they may have diabetes and this should be confirmed with a follow-up test. Performed By: #### 9 2497, 1759 #### [facility] [address], [address] [place] [address] Event Sales Assistant: Octavio Segovia MD Potassium [Moles/Vol] 4.8 mmol/L Normal 3.5-5.3 [facility] Comment on above: Order Comment: FASTI NG:YES FASTING: YES Performed By: #### 9 2497, 175 #### [facility] [address], [address] [place] [address] Event Sales Assistant: Octavio Segovia MD Sodium [Moles/Vol] 136 mmol/L Normal 135-146 [facility] Comment on above: Order Comment: FASTI NG:YES FASTING: YES Performed By: #### 9 2497, 175 #### [facility] [address], [address] [place] [address] Event Sales Assistant: Octavio Segovia MD Urea nitrogen [Mass/Vol] 36 mg/dL High 7-25 [facility] Comment on above: Order Comment: FASTI NG:YES FASTING: YES Performed By: #### 9 2497, 175 #### [facility] [address], [address] [place] [address] Event Sales Assistant: Octavio Segovia MD Urea nitrogen/Creatinine [Mass ratio] 24 mg/mg High 6-22 [facility] Comment on above: Order Comment: FASTI NG:YES FASTING: YES Performed By: #### 9 2497, 175 #### [facility] [address], [address] [place] [address] Event Sales Assistant: Octavio Segovia MD BRONCHOSCOPYon 09-24-2024 BRONCHOSCOPY Table formatting fro m the original result was not included. Images from the original result were not included. Bronchoscopy Operative Report [facility] Date of procedure: 09/24/24 Patient: Krunal [...] INDICATION: Obtain diagnosis BRONCHOSCOPIST: Dick Nguyen MD School Treasurer: Maeve Pringle MD PROCEDURES PERFORMED: Flexible Bronchoscopy Cryo Transbronchial Biopsy using 1.7 cryoprobe 7 Central African Osmani renuka placement in RLL and RML BAL RML Events Procedure Events Event Event Time ENDO SCOPE IN TIME 09/24/2024 8:05 AM ENDO SCOPE OUT TIME 09/24/2024 8:40 AM POST-PROCEDURE DIAGNOSIS: Interstitial Lung Disease ANESTHESIA: GETA. See separate anesthesia provider documentation. This procedure was performed using standard monitoring procedures in [facility] Endoscopy [facility]. Medications See Anesthesia Record. Details [...] bronchoscopy was performed via ETT. A 7 zambian renuka was placed outside of the ETT [...] cryo transbronchial biopies and placement of 7 zambian renuka. The procedure required more time than usual to perform. After diagnostic/therapeutic maneuvers, the airway was examined for evidence of bleeding. None was noted. The bronchoscope was removed from the patient's airway and the airway was handed back over to my colleagues from anesthesiology. SPECIMENS: ID Type Source Karly (more content not included)... Normal [facility] Comment on above: Order Comment: [facility] hoscop Scheduling Request Pre-bronchoscopy visit: Not needed with Dr Padron Please schedule procedure: After September 11, 2024 Cytology on-site: No Location: [facility] Performing physician: Dick Nguyen MD or interventional pulm (cryo ILD biopsies) Referring physician: Rosalino Padron MD, Radha Khan MD Indication: undifferentiated ILD Sedation / Anesthesia: GA Procedure: Airway exam, BAL, TBBx, Rigid, 7 zambian renuka with rigid, if too hypoxic then 8.5/9 ETT with 5 zambian renuka Time: Tier 2 Fluorscopy: Yes Imaging [...] 09/26/2024840 Result Status: Final result Resulting Lab: [facility] [address] [place] [address] CULTURE No growth aerobically and anaerobically STAIN (2+) Few Polymorphonuclear leukocytes No organisms seen Normal [facility] Comment on above: Performed By: #### 3 2355-0 #### MICHAEL Ho ([id number]) [facility] ([facility]) [id number] [place] [address] Bronchoscopy studyon 025 Addendum by Dick Davis am, MD on 09/24/2024 9:35 AM EDT Table formatting from the original result was not included. Images from the original result were not included. Bronchoscopy Operative Report [facility] Date of procedure: 09/24/24 Patient: Krunal [...] INDICATION: Obtain diagnosis BRONCHOSCOPIST: Dick Nguyen MD School Treasurer: Maeve Pringle MD PROCEDURES PERFORMED: Flexible Bronchoscopy Cryo Transbronchial Biopsy using 1.7 cryoprobe 7 Central African Osmani renuka placement in RLL and RML BAL RML Events Procedure Events Event Event Time ENDO SCOPE IN TIME 09/24/2024 8:05 AM ENDO SCOPE OUT TIME 09/24/2024 8:40 AM POST-PROCEDURE DIAGNOSIS: Interstitial Lung Disease ANESTHESIA: GETA. See separate anesthesia provider documentation. This procedure was performed using standard monitoring procedures in [facility] Endoscopy Suite. Medications See Anesthesia Record. Details [...] bronchoscopy was performed via ETT. A 7 zambian renuka was placed outside of the ETT [...] In prepararation for cryobiopsies, we advanced the ernuka to the segment to be biopsied and [...] cryo transbronchial biopies and placement of 7 zambian renuka. The procedure required more time than usual to perform. After diagnostic/therapeutic maneuvers, the airway (more content not included)... [facility] Work Phone: [facility] Work Phone: Radiology Study observation (narrative) [facility] Work Phone: CBC (H/H, RBC, INDICES, WBC, PLT)on 09-24-2024 Erythrocyte distribution width (RBC) [Ratio] 16.0 % High 11.0-15.0 [facility] Comment on above: Performed By: #### 9 2497, 1759 #### [facility] [place] [address] Event Sales Assistant: Octavio Segovia MD Hematocrit (Bld) [Volume fraction] 33.0 % Low 38.5-50.0 [facility] Comment on above: Performed By: #### 9 2497, 1759 #### [facility] [place] [address] Event Sales Assistant: Octavio Segovia MD Hemoglobin (Bld) [Mass/Vol] 9.4 g/dL Low 13.2-17.1 [facility] Comment on above: Performed By: #### 9 2497, 1759 #### [facility] [place] [address] Event Sales Assistant: Octavio Segovia MD MCH (RBC) [Entitic mass] 23.4 pg Low 27.0-33.0 [facility] Comment on above: Performed By: #### 9 2497, 1759 #### [facility] [place] [address] Event Sales Assistant: Octavio Segovia MD MCHC (RBC) [Mass/Vol] 28.5 [...] #### 9 2497, 1759 #### [facility] [place] [address] Event Sales Assistant: Octavio Segovia MD MCV (RBC) [Entitic vol] 82.1 fL Normal 80.0-100.0 [facility] Comment on above: Performed By: #### 9 2497, 1759 #### [facility] [place] [address] Event Sales Assistant: Octavio Segovia MD Platelet mean volume (Bld) [Entitic vol] 10.4 fL Normal 7.5-12.5 [facility] Comment on above: Performed By: #### 9 8, 1759 #### [facility] [place] [address] Event Sales Assistant: Octavio Segovia MD Platelets (Bld) [#/Vol] 259 10*3/uL Normal 140-400 [facility] Comment on above: Performed By: #### 9 2497, 1759 #### [facility] [place] [address] Event Sales Assistant: Octavio Segovia MD RBC (Bld) [#/Vol] 4.02 10*6/uL Low 4.20-5.80 [facility] Comment on above: Performed By: #### 9 2497, 1759 #### [facility] [place] [address] Event Sales Assistant: Octavio Segovia MD WBC (Bld) [#/Vol] 12.8 10*3/uL High 3.8-10.8 [facility] Comment on above: Performed By: #### 9 2497, 1759 #### [facility] [place] [address] Event Sales Assistant: Octavio Segovia MD Cell count panel (Body fld)O rdered By: Johanna Prieto on 09-24-2024 Clarity (Body fld) Clear Clear [facility] Color (Body fld) Colorless Colorless, Straw, Yellow [facility] RBC Auto (Body fld) [#/Vol] /uL see comment /uL [facility] WBC (Body fld) [#/Vol] 0.022 10*3/uL See Comment [facility] Body Fluid cell coun t reference ranges have not been established by [facility]. Reference ranges provided are based on published references. This test was developed and its performance characteristics determined by [facility]. It has not been cleared or approved by the [place] Food and Drug Administration. [facility] Cell count panel (Body fld)o n 09-24-2024 Clarity (Body fld) Clear Normal Clear [facility] Comment on above: Order Comment: Body Fluid cell count reference ranges have not been established by [facility]. Reference ranges provided are based on published references. This test was developed and its performance characteristics determined by [facility]. It has not been cleared or approved by the [place] Food and Drug Administration. Performed By: #### 3 4556-1 #### MICHAEL Ho ([id number]) [facility] ([facility]) [id number] [place] [id number] Color (Body fld) Colorless Normal Colorless, Straw, Yellow [facility] Comment on above: Order Comment: Body Fluid cell count reference ranges have not been established by [facility]. Reference ranges provided are based on published references. This test was developed and its performance characteristics determined by [facility]. It has not been cleared or approved by the US Food and Drug Administration. Performed By: #### 3 4556-1 #### MICHAEL Ho ([id number]) [facility] ([facility]) [id number] [place] [address] 14477 RBC Auto (Body fld) [#/Vol] <2000 Normal see comment [facility] Comment on above: Order Comment: Body Fluid cell count reference ranges have not been established by [facility]. Reference ranges provided are based on published references. This test was developed and its performance characteristics determined by [facility]. It has not been cleared or approved by the US Food and Drug Administration. Performed By: #### 3 4556-1 #### MICHAEL Ho ([id number]) [facility] ([facility]) [address] [place] [address] WBC (Body fld) [#/Vol] 0.022 10*3/uL Normal See Comment [facility] Comment on above: Order Comment: Body Fluid cell count reference ranges have not been established by [facility]. Reference ranges provided are based on published references. This test was developed and its performance characteristics determined by [facility]. It has not been cleared or approved by the US Food and Drug Administration. Performed By: #### 3 4556-1 #### MICHAEL Ho ([id number]) [facility] ([facility]) [address] [place] [address]7916 Differential panel (Body fld )on 09-24-2024 Cells Counted Total (Body fld) [#] 100 [facility] Eosinophils/100 WBC Manual cnt (Body fld) 1 % see comment [facility] Comment on above: BAL Reference Range: <1% Lymphocytes/100 WBC Manual cnt (Body fld) 21 % see comment [facility] Comment on above: Synovial/Peritoneal/ Pericardial/Pleural Fluid Reference Range: <75% BAL Reference Range: <10% Monocytes+Macrophages/1 00 WBC Manual cnt (Body fld) 53 % see comment [facility] Comment on above: Synovial/Peritoneal/ Pericardial/Pleural Fluid Reference Range: <70% BAL Reference Range: 87-100% Neutrophils/100 WBC (Body fld) 25 % see comment [facility] Comment on above: Synovial/Peritoneal/ Pericardial/Pleural Fluid Reference Range: <25% BAL Reference Range: <2% Body Fluid cell differential reference ranges have not been established by [facility]. Reference ranges provided are based on published references. This test was developed and its performance characteristics determined by [facility]. It has not been cleared or approved by the US Food and Drug Administration. [facility] Cells Counted Total (Body fld) [#] 100 Normal [facility] Comment on above: Order Comment: Body Fluid cell differential reference ranges have not been established by [facility]. Reference ranges provided are based on published references. This test was developed and its performance characteristics determined by [facility]. It has not been cleared or approved by the US Food and Drug Administration. Performed By: #### 2 9580-8 #### MICHAEL Ho ([id number]) [facility] ([facility]) [address] [place] [address] Eosinophils/100 WBC Manual cnt (Body fld) 1 % Normal see comment [facility] Comment on above: Order Comment: Body Fluid cell differential reference ranges have not been established by [facility]. Reference ranges provided are based on published references. This test was developed and its performance characteristics determined by [facility]. It has not been cleared or approved by the US Food and Drug Administration. Result Comment: BAL Reference Range: <1% Performed By: #### 2 9580-8 #### MICHAEL BERNALTZER L ([id number]) [facility] ([facility]) [address] [place] [address] Lymphocytes/100 WBC Manual cnt (Body fld) 21 % Normal see comment [facility] Comment on above: Order Comment: Body Fluid cell differential reference ranges have not been established by [facility]. Reference ranges provided are based on published references. This test was developed and its performance characteristics determined by [facility]. It has not been cleared or approved by the US Food and Drug Administration. Result Comment: Syno vial/Peritoneal/Pericardial/Pleural Fluid Reference Range: <75% BAL Reference Range: <10% Performed By: #### 2 9580-8 #### MICHAEL HOLMMOTZER L ([id number]) [facility] ([facility]) [address] [place] [address] Monocytes+Macrophages/1 00 WBC Manual cnt (Body fld) 53 % Normal see comment [facility] Comment on above: Order Comment: Body Fluid cell differential reference ranges have not been established by [facility]. Reference ranges provided are based on published references. This test was developed and its performance characteristics determined by [facility]. It has not been cleared or approved by the US Food and Drug Administration. Result Comment: Syno vial/Peritoneal/Pericardial/Pleural Fluid Reference Range: <70% BAL Reference Range: 87-100% Performed By: #### 2 9580-8 #### MICHAEL HOLMMOTZER L ([id number]) [facility] ([facility]) [address] [place] [address]115 Neutrophils/100 WBC (Body fld) 25 % Normal see comment [facility] Comment on above: Order Comment: Body Fluid cell differential reference ranges have not been established by [facility]. Reference ranges provided are based on published references. This test was developed and its performance characteristics determined by [facility]. It has not been cleared or approved by the US Food and Drug Administration. Result Comment: Syno vial/Peritoneal/Pericardial/Pleural Fluid Reference Range: <25% BAL Reference Range: <2% Performed By: #### 2 9580-8 #### MICHAEL Ho ([id number]) [facility] ([facility]) [address] [place] [address] Fungus identifiedon 09-25-19 Fungus identified Cx Nom (Unsp spec) Test: Fungal Culture/Smear Specimen Source: BRONCHO-ALVEOLAR LAVAGE OF RIGHT MIDDLE LOBE Specimen Type: Fluid Specimen Date: 09/24/2024838 Result Date: 09/25/20241114 Result Status: Preliminary result Resulting Lab: [facility] [address] [place] [address] CULTURE Culture in progress, a report will be issued when positive or after 2 weeks of incubation. STAIN No fungal elements seen Normal [facility] Comment on above: Performed By: #### 5 80-1 #### MICHAEL Ho ([id number]) [facility] ([facility]) [address] [place] [address] LEGIONELLA PCR PANELon 09-24 LEGIONELLA PNEUMO PCR, VIRC Not detected Normal Not Detected [facility] Comment on above: Result Comment: This test was developed and its performance characteristics determined by [facility]. It has not been cleared or approved by the U.S. Food and Drug Administration. Results should be used in conjunction with clinical findings, and should not form the sole basis for a diagnosis or treatment decision. Testing Performed at: [facility] [address] [place] [address], [address] [place] [address] Central Services Tech: José Harris, PhD BCLD (ABB) CLIA # [id number] FLAG Interpretation: A = Abnormal, H = High, L = Low Performed By: #### L [facility] ####[facility] ([id number])[address] [place] [address] NAVAS.LEGIONELLA PCR, VIRC Not detected Normal Not Detected [facility] Comment on above: Performed By: #### L [facility] ####[facility] ([id number])[address] [place] [address] Mycobacterium sp identifiedo n 09-24-2024 Mycobacterium sp identified Org specific cx Nom (Unsp spec) Test: AFB Culture/Smear Specimen Source: BRONCHO-ALVEOLAR LAVAGE OF RIGHT MIDDLE LOBE Specimen Type: Fluid Specimen Date: 09/24/2024838 Result Date: 09/25/2024858 Result Status: Preliminary result Resulting Lab: [facility] [address] [place] [address] CULTURE Culture in progress and will be examined weekly. A result will be issued either when positive or after 8 weeks incubation. STAIN No acid fast bacilli seen Normal [facility] Comment on above: Performed By: #### 5 43-9 #### MICHAEL Ho ([id number]) [facility] ([facility]) [address] [place] [address] Non-organ tuner electronic cytology studyon Non-gynecological cytology method study Pathology report.total SEE COMMENT Non-gynecologic Cytology Case: [id number] Authorizing Provider: Dick Nguyen MD Collected: 09/24/2024 0837 Ordering Location: [facility] Received: 09/24/2024 1637 Center Pathologist: Lyudmila [...] initially screened by Denisa Holliday CT at [facility] [id number] [place] [phone] By the signature on this report, the [...] A1-2 GMS PCP A1-3 LOG SPECIAL STAIN [facility] Pathologist review Cedrick (Unsp spec) [Interp]on 09-24-2024 PATH REVIEW-CELL CT,FLUID Predominantly macrophages with some foamy and hemosiderin-laden forms. [facility] Comment on above: Result Comment: Elec tronically signed out by Cat Gunter MD on 09/25/24 at 10:24 AM. By the signature on this report, the individual or group listed as making the Final Interpretation/Diagnosis certifies that they have reviewed this case. Performed By: #### 5 9465-5 #### MICHAEL Ho ([id number]) [facility] ([facility]) [address] [place] [address] Surgical pathology studyon 0 09-24-2024 Surgical pathology study Pathology report.total SEE COMMENT Surgical Pathology Case: [id number] Authorizing Provider: Dick Nguyen MD Collected: 09/24/2024 0817 Ordering Location: [facility] Received: 09/24/2024 1142 Center Pathologist: Sanchez [...] submitted in toto in one cassette. B [facility] XR CHEST 1 VIEWon 09-24-2024 XR CHEST 1 VIEW Interpreted By: Matthias Bunch and Mercado Amiel STUDY: XR CHEST 1 VIEW; 09/24/2024 9:32 am INDICATION: Signs/Symptoms:after bronchoscopy. COMPARISON: CT CHEST HIGH RESOLUTION 07/20/2024 ACCESSION NUMBER(S): [id number] ORDERING CLINICIAN: DICK NGUYEN FINDINGS: AP radiograph [...] Matthias Bunch 09/24/2024 10:10 AM Dictation workstation: [id number] [facility] XR Chest Single viewon 09-24 1. Diffuse bilateral hazy reticulonodular opacities with relatively increased size of right lateral lower lung field, which likely represents infiltrate/consolidation with superimposed interstitial lung findings previously described on CT. I have reviewed the images/study and I agree with the findings as stated by Dr. Aguila Gonzales. Signed by: Matthias Bunch 09/24/2024 10:10 AM Dictation workstation: [id number] Interpreted By: Matthias Bunch and Mercado Amiel STUDY: XR CHEST 1 VIEW; 09/24/2024 9:32 am INDICATION: Signs/Symptoms:after bronchoscopy. COMPARISON: CT CHEST HIGH RESOLUTION 07/20/2024 ACCESSION NUMBER(S): [id number] ORDERING CLINICIAN: DICK NGUYEN FINDINGS: AP radiograph [...] CT CHEST HIGH RESOLUTION 07/20/2024 ACCESSION NUMBER(S): [id number] ORDERING CLINICIAN: DICK NGUYEN FINDINGS: AP radiograph [...] Matthias Bunch 09/24/2024 10:10 AM Dictation workstation: [id number] [facility] Work Phone: Radiology Study observation (narrative) [facility] Work Phone: XR Chest Single viewOrdered By: Matthias Bunch on 09-24-2024 [facility] Work Phone: Endocrinology Visit Reporton 09-16-2024 Endocrinology Visit Report Normal [facility] Office Visit Reporton 2024 Office Visit Report Normal [facility] Neurology Visit Reporton Neurology Visit Report Normal [facility] Anion gap in Serum or Plasma Ordered By: Khadar Valencia on 08-12-2024 Anion gap [Moles/Vol] 14 mmol/L - [facility] BUN/creatinine ratioOrdered By: Khadar Valencia on 08-12-2024 Urea nitrogen/Creatinine [Mass ratio] 30.2 mg/mg High 01-18 [facility] Basic Metabolic Profile (BMP )on 08-12-2024 BUN/CRE 30.2 RATIO High 01-18 [facility] Comment on above: Performed By: #### L 503.7505, L500.2500 ####[facility] [address] [place], [address] Calcium [Mass/Vol] 9.6 mg/dL Normal 7.6-11.0 [facility] Comment on above: Performed By: #### L 503.7505, L500.2500 ####[facility] [address] [place], [address] Chloride [Moles/Vol] 98 mmol/L Normal 98-108 [facility] Comment on above: Performed By: #### L 503.7505, L500.2500 ####[facility] [address] [place], [address] CO2 [Moles/Vol] 25.1 mmol/L Normal 21.0-32.0 [facility] Comment on above: Performed By: #### L 503.7505, L500.2500 ####[facility] [address] [place], [address] Creatinine [Mass/Vol] 1.31 mg/dL High 0.70-1.20 [facility] Comment on above: Performed By: #### L 503.7505, L500.2500 ####[facility] [address] [place], [address] GAP 14 Normal 5-15 [facility] Comment on above: Performed By: #### L 503.7505, L500.2500 ####[facility] [address] [place], [address] GFR/1.73 sq M.predicted among non-blacks MDRD (S/P/Bld) [Vol rate/Area] 62 mL/min/{1.73_m2} Normal >60 [facility] Comment on above: Result Comment: mL/m in/1.73m2 CKD-EPI Creatinine Equation (2020) Performed By: #### L 503.7505, L500.2500 ####[facility] [address] [place], [address] Glucose [Mass/Vol] 104 mg/dL High 70-99 [facility] Comment on above: Performed By: #### L 503.7505, L500.2500 ####[facility] [address] [place], [address] Potassium [Moles/Vol] 4.4 mmol/L Normal 3.3-5.1 [facility] Comment on above: Performed By: #### L 503.7505, L500.2500 ####[facility] [address] [place], [address] Sodium [Moles/Vol] 137 mmol/L Normal 133-145 [facility] Comment on above: Performed By: #### L 503.7505, L500.2500 ####[facility] [address] [place], [address] Urea nitrogen [Mass/Vol] 40 mg/dL High 4-19 [facility] Comment on above: Performed By: #### L 503.7505, L500.2500 ####[facility] [address] [place], [place], [id number] Carbon dioxide, total [Moles /volume] in Central venous bloodOrdered By: Khadar Valencia on 08-12-2024 CO2 [Moles/Vol] 25.1 mmol/L 21.0-32.0 [facility] Chest PA and Lateralon 08-12 Chest PA and Lateral Normal [facility] Chloride assayOrdered By: James Valencia on 08-12-2024 Chloride [Moles/Vol] 98 mmol/L 98-108 [facility] Glomerular filtration rate ( GFR) estimation/1.73 sq m using serum, plasma, or whole bOrdered By: Khadar Valencia on 08-12-2024 GFR/1.73 sq M.predicted among non-blacks MDRD (S/P/Bld) [Vol rate/Area] 62 mL/min/{1.73_m2} >60 [facility] Comment on above: mL/min/1.73m2 CKD-EP I Creatinine Equation (2020) L503.7505on 08-12-2024 Natriuretic peptide B (Bld) [Mass/Vol] 626 pg/mL Normal <=900 [facility] Comment on above: Result Comment: Hear t Failure Unlikely: < 300 pg/mLHeart Failure Likely< 50 Years: > 450 pg/mL50-75 Years: > 900 pg/mL>75 Years: > 1800 pg/mL Performed By: #### L 503.7505, L500.2500 ####[facility] [address] [place], [place], [id number] Natriuretic peptide.B prohor renea N-Terminal [Mass/volume] in Serum or PlasmaOrdered By: Khadar Valencia on 08-12-2024 Natriuretic peptide.B prohormone N-Terminal [Mass/Vol] 626 pg/mL <900 [facility] Comment on above: Heart Failure Unlike ly: < 300 pg/mLHeart Failure Likely< 50 Years: > 450 pg/mL50-75 Years: > 900 pg/mL>75 Years: > 1800 pg/mL Potassium measurement (mass/ volume)Ordered By: Khadar Valencia on 08-12-2024 Potassium (Unsp spec) [Mass/Vol] 4.4 mmol/L 3.3-5.1 [facility] Serum creatinine measurement (mass/volume)Ordered By: Khadar Valencia on 08-12-2024 Creatinine [Mass/Vol] 1.31 mg/dL High 0.70-1.20 [facility] Serum glucose measurement (m ass/volume)Ordered By: [facility] Erik on 08-12-2024 Glucose [Mass/Vol] 104 mg/dL High 70-99 [facility] Serum or plasma calcium grazyna urement (mass/volume)Ordered By: [facility] 08-12-2024 Calcium [Mass/Vol] 9.6 mg/dL 7.6-11.0 [facility] Serum or plasma urea nitroge n measurement (mass/volume)Ordered By: [facility] on 08-12-2024 Urea nitrogen [Mass/Vol] 40 mg/dL High 4-19 [facility] Sodium levelOrdered By: [facility] fernando Valencia on 08-12-2024 Sodium [Moles/Vol] 137 mmol/L 133-145 [facility] Office Visit Reporton 2024 Office Visit Report Normal [facility] ALDOLASEon 08-02-2024 ALDOLASE 4.6 U/L Normal < OR = 8.1 [facility] Comment on above: Performed By: #### 9 3188, 1759 #### [facility] [address], [address] [place] [address] Event Sales Assistant: Octavio Segovia MD RICARDO CASCADE(RICARDO,IFA W/RFL AN [...] AC-0: Negative International Consensus on RICARDO Patterns (https://doi.org/10.1515/cfpr-8002-1232) For additional information, please refer to http://education.MyWebGrocer.VYou/faq/IIV651 (This link is being provided for informational/ educational purposes only.) Performed By: #### 9 2498, 1759 #### [facility] [address], [address] [place] [address] Event Sales Assistant: Octavio Segovia MD ANCA SCREEN WITH MPO [...] Performed By: #### 2 27, 4418, 4420, 30102, 809, 43644, 374 #### [facility] [address], [address] [place] [address] Event Sales Assistant: Octavio Segovia MD #### [phone], 070[address] #### [facility]/[address] [address] Event Sales Assistant: Alejandra Queen MD,PhD,FADIA #### [id number] #### [facility] [address] [facility] [place] [address] Event Sales Assistant: Waldemar Billy M.D.,PhD MYELOPEROXIDASE ANTIBODY <1.0 Normal <1.0 [facility] Comment on above: Result Comment: Value Interpretation [...] Performed By: #### 2 27, 4418, 4420, 53459, 809, 32723, 374 #### [facility] [place] [address] [facility], [address] [place] [address] Event Sales Assistant: Octavio Segovia MD #### 385[address], 94828 #### [facility], [address] [place] [address] Event Sales Assistant: Alejandra Queen MD,PhD,FADIA #### [id number] #### [facility]/[address] [place], [place] Event Sales Assistant: Waldemar Billy M.D.,PhD PROTEINASE-3 ANTIBODY <1.0 Normal <1.0 [facility] Comment on above: Result Comment: Value Interpretation <1.0 AI: No Antibody Detected >or=1.0 AI: Antibody Detected Autoantibodies to proteinase-3 (MN-3) are accepted as characteristic for granulomatosis with polyangiitis (GPA, Kaylen's), and are detectable in 95% of the histologically proven cases. The cytoplasmic IFA pattern, (c-ANCA), is based largely on autoantibody to MN-3 which serves as the primary antigen. These autoantibodies are present in active disease. Performed By: #### 2 27, 4418, 4420, 57590, 809, 55869, 374 #### [facility] [address], [address] [place] [address] Event Sales Assistant: Octavio Segovia MD #### [id number], [id number] #### [facility], [address] [place] [address] Event Sales Assistant: Alejandra Queen MD,PhD,FADIA #### [id number] #### [facility] [address] [facility] [address] [place] Event Sales Assistant: Waldemar Billy M.D.,PhD C-REACTIVE PROTEINon 025 CRP [Mass/Vol] 10.6 mg/L High <8.0 [facility] Comment on above: Performed By: #### 2 27, 4418, 4420, 12117, 809, 02253, 374 #### [facility] [address], [address] [place] [address] Event Sales Assistant: Octavio Segovia MD #### 50726, 35605 #### [facility], [address] [place] [address] Event Sales Assistant: Alejandra Queen MD,PhD,FADIA #### [id number] #### [facility] [place], [place] Event Sales Assistant: Waldemar Billy M.D.,PhD CREATINE KINASE, TOTALon CREATINE KINASE, TOTAL 46 U/L Normal 22-308 [facility] Comment on above: Performed By: #### 2 27, 8, 4420, 53449, 809, 05580, 374 #### [facility] [address], [address] [place] [address] Event Sales Assistant: Octavio Segovia MD #### [phone], 25198 #### [facility], [address] [place] Event Sales Assistant: Alejandra Queen MD,PhD,FADIA #### [id number] #### [facility] [place], [place] Event Sales Assistant: Waldemar Billy M.D.,PhD CYCLIC CITRULLINATED PEPTIDE (CCP) AB (IGG)on 08-02-2024 CYCLIC CITRULLINATED PEPTIDE (CCP) AB (IGG) <16 Normal [facility] Comment on above: Result Comment: Refe rence Range Negative: <20 Weak Positive: 20-39 Moderate Positive: 40-59 Strong Positive: >59 Performed By: #### 2 27, 8, 4420, 34904, 809, 72117, 374 #### [facility] [address], [address] [place] [address] Event Sales Assistant: Octavio Segovia MD #### 55308, 75608 #### [facility], [address] [place] [address] Event Sales Assistant: Alejandra Queen MD,PhD,FADIA #### [phone] #### [facility] [address] [facility] [place] [address] Event Sales Assistant: Waldemar Billy M.D.,PhD EXTENDED MYOSITIS SPECIFIC A [...] analytical performance characteristics have been determined by [facility]. It has not been cleared or approved by the FDA. This assay has been validated pursuant to the CLIA regulations and is used for clinical purposes. Performed By: #### 2 , 8908, 4420, 75156, 809, 88694, 374 #### [facility] [address], [address] [place], [place] [address] Event Sales Assistant: Octavio Segovia MD #### [phone], 67741 #### [facility], [address] [place] [address] Event Sales Assistant: Alejandra Queen MD,PhD,FADIA #### [id number] #### [facility]/[address] [place], [place] Event Sales Assistant: Waldemar Billy M.D.,PhD EJ AB <11 Normal <11 [facility] Comment on above: Order Comment: FASTI NG:NO FASTING: NO Performed By: #### 2 27, 4418, 4420, 32301, 809, 45310, 374 #### [facility] [address], [address] [place] [address] Event Sales Assistant: Octavio Segovia MD #### [id number], 66066 #### [facility], [address] [place] [address] Event Sales Assistant: Alejandra Queen MD,PhD,FADIA #### 48863 #### [facility] [address] [place] [address] [place], [place] Event Sales Assistant: Waldemar Billy M.D.,PhD HMGCR AB (IGG) <2 Normal <20 [facility] Comment on above: Order Comment: FASTI NG:NO FASTING: NO Result Comment: 6-Vbxibxb-9-Methylglutaryl-Coenzyme A Reductase (HMGCR) Ab is associated with necrotizing myopathy and is often found with the use of statin medications. Rarely, HMGCR Ab associated myositis has also been seen in patients ingesting mushrooms and other foods. Performed By: #### 2 27, 4418, 4420, 15833, 809, 63628, 374 #### [facility] [address], [address] [place] [address] Event Sales Assistant: Octavio Segovia MD #### [phone], [phone] #### [facility], [address] [facility] [place] Event Sales Assistant: Alejandra Queen MD,PhD,FADIA #### [id number] #### [facility]/[address] [place], [place] Event Sales Assistant: Waldemar Billy M.D.,PhD SAMANTHA-1 AB <11 Normal <11 [facility] Comment on above: Order Comment: FASTI NG:NO FASTING: NO Performed By: #### 2 27, 4418, 4420, 92153, 809, 32004, 374 #### [facility] [address], [address] [place] [address] Event Sales Assistant: Octavio Segovia MD #### [phone], [phone] #### [facility], [address] [place], [place] Event Sales Assistant: Alejandra Queen MD,PhD,FADIA #### [id number] #### [facility]/[address] [place] Event Sales Assistant: Waldemar Billy M.D.,PhD MDA5 AB <11 Normal <11 [facility] Comment on above: Order Comment: FASTI NG:NO FASTING: NO Performed By: #### 2 27, 4418, 4420, 06686, 809, 45121, 374 #### [facility] [address] [facility], [address] [place] [address] Event Sales Assistant: Octavio Segovia MD #### [phone], [phone] #### [facility], [address] [place], [place] Event Sales Assistant: Alejandra Queen MD,PhD,FADIA #### [id number] #### [facility]/[place] [address] [facility] [address] [place], [place] Event Sales Assistant: Waldemar Billy M.D.,PhD ID-2 ALPHA AB <11 Normal <11 [facility] Comment on above: Order Comment: FASTI NG:NO FASTING: NO Performed By: #### 2 27, 4418, 4420, 17765, 809, 57784, 374 #### [facility] [address], [address] [place] [address] Event Sales Assistant: Octavio Segovia MD #### [phone], [phone] #### [facility], [address] [place] [address] Event Sales Assistant: Alejandra Queen MD,PhD,FADIA #### [id number] #### [facility] [place], [place] Event Sales Assistant: Waldemar Billy M.D.,PhD ID-2 BETA AB <11 Normal <11 [facility] Comment on above: Order Comment: FASTI NG:NO FASTING: NO Performed By: #### 2 27, 4418, 4420, 53077, 809, 15489, 374 #### [facility] [address], [address] [place] [address] Event Sales Assistant: Octavio Segovia MD #### [phone], [phone] #### [facility], [address] [place], [place] Event Sales Assistant: Alejandra Queen MD,PhD,FADIA #### [id number] #### [facility] [address] [place], [place] Event Sales Assistant: Waldemar Billy M.D.,PhD NXP-2 AB <11 Normal [...] with a rash. Additionally, MSAs to MDA5 (QXPQ291) have been identified in patients with clinically [...] analytical performance characteristics have been determined by [facility]. It has not been cleared or approved by the FDA. This assay has been validated pursuant to the CLIA regulations and is used for clinical purposes. Performed By: #### 2 , 4418, 4420, 60408, 809, 17771, 374 #### [facility] [address], [address] [place] [address] Event Sales Assistant: Octavio Segovia MD #### [phone], [phone] #### [facility]/[address] [address] Event Sales Assistant: Alejandra Queen MD,PhD,FADIA #### [id number] #### [facility] [address] [facility] [place] [address] Event Sales Assistant: Waldemar Billy M.D.,PhD OJ AB <11 Normal <11 [facility] Comment on above: Order Comment: FASTI NG:NO FASTING: NO Performed By: #### 2 27, 4418, 4420, 89705, 809, 88878, 374 #### [facility] [address], [address] [place] [address] Event Sales Assistant: Octavio Segovia MD #### [phone], 17172 #### [facility], [address] [facility], [place] Event Sales Assistant: Alejandra Queen MD,PhD,FADIA #### [id number] #### [facility]/[address] [place], [place] Event Sales Assistant: Waldemar Billy M.D.,PhD PL-12 AB <11 Normal <11 [facility] Comment on above: Order Comment: FASTI NG:NO FASTING: NO Performed By: #### 2 27, 4418, 4420, 67212, 809, 51646, 374 #### [facility] [place] [address] [place] , [address] [place] [address] Event Sales Assistant: Octavio Segovia MD #### [phone], [phone] #### [facility], [address] [place], [place] Event Sales Assistant: Alejandra Queen MD,PhD,FADIA #### [phone] #### [facility] [address] [place] [address] [place], [place] Event Sales Assistant: Waldemar Billy M.D.,PhD PL-7 AB <11 Normal <11 [facility] Comment on above: Order Comment: FASTI NG:NO FASTING: NO Performed By: #### 2 27, 4418, 4420, 06093, 809, 42175, 374 #### [facility] [place] [address] [place] , [address] [place] [address] Event Sales Assistant: Octavio Segovia MD #### [phone], 78401 #### [facility], [address] [facility] [place] Event Sales Assistant: Alejandra Queen MD,PhD,FADIA #### [id number] #### [facility]/[address] [place], [place] Event Sales Assistant: Waldemar Billy M.D.,PhD SRP AB <11 Normal <11 [facility] Comment on above: Order Comment: FASTI NG:NO FASTING: NO Performed By: #### 2 27, 4418, 4420, 46434, 809, 20338, 374 #### [facility] [address], [address] [place] [address] Event Sales Assistant: Octavio Segovia MD #### [phone], [phone] #### [facility], [address] [facility] [place] Event Sales Assistant: Alejandra Queen MD,PhD,FADIA #### [phone] #### [facility]/[place] [address] [facility] [place], [place] Event Sales Assistant: Waldemar Billy M.D.,PhD TIF1 GAMMA AB <11 Normal <11 [facility] Comment on above: Order Comment: FASTI NG:NO FASTING: NO Performed By: #### 2 27, 4418, 4420, 34854, 809, 37635, 374 #### [facility] [address], [address] [place] [address] Event Sales Assistant: Octavio Segovia MD #### 15335, 40869 #### [facility], [address] [facility] [place] Event Sales Assistant: Alejandra Queen MD,PhD,FADIA #### [phone] #### [facility]/[place] [address] [facility] [address] [place], [place] Event Sales Assistant: Waldemar Billy M.D.,PhD HYPERSENSITIVITY PNEUMONITIS SCREENon 08-02-2024 ASPERGILLUS FUMIGATUS Negative Normal NEGATIVE [facility] Comment on above: Performed By: #### 2 27, 4418, 4420, 03591, 809, 34847, 374 #### [facility] of [facility] [address], [address] [place] [address] Event Sales Assistant: Octavio Segovia MD #### 24411, 21605 #### [facility], [address] [facility] [place] Event Sales Assistant: Alejandra Queen MD,PhD,FADIA #### [id number] #### [facility]/[address] [place], [place] Event Sales Assistant: Waldemar Billy M.D.,PhD MICROPOLYSPORA FAENI Negative Normal NEGATIVE Ques t [facility] Comment on above: Performed By: #### 2 27, 4418, 4420, 55344, 809, 00545, 374 #### [facility] of [place] [address], [address] [place], [place] [id number] Event Sales Assistant: Octavio Segovia MD #### [phone], [phone] #### [facility], [address] [place], [place] Event Sales Assistant: Alejandra Queen MD,PhD,FADIA #### [id number] #### [facility]/[address] [place], [place] Event Sales Assistant: Waldemar Billy M.D.,PhD PIGEON SERUM Negative Normal NEGATIVE [facility] Comment on above: Performed By: #### 2 27, 4418, 4420, 69632, 809, 46114, 374 #### [facility] of [facility] [address], [address] [place] [address] Event Sales Assistant: Octavio Segovia MD #### [phone], 55217 #### [facility], [address] [facility] [place] Event Sales Assistant: Alejandra Queen MD,PhD,FADIA #### [phone] #### [facility]/[address] [place], [place] Event Sales Assistant: Waldemar Billy M.D.,PhD SMindi MAYORGA Negative Normal NEGATIVE [facility] Comment on above: Result Comment: This test was developed and its analytical performance characteristics have been determined by [facility]. It has not been cleared or approved by the FDA. This assay has been validated pursuant to the CLIA regulations and is used for clinical purposes. Performed By: #### 2 27, 4418, 4420, 54023, 809, 98089, 374 #### [facility] [address], [address] [place] [address] Event Sales Assistant: Octavio Segovia MD #### 30314, 33620 #### [facility], [address] [place] Event Sales Assistant: Alejandra Queen MD,PhD,FADIA #### [phone] #### [facility] [address] [place] [address] [place], [place] Event Sales Assistant: Waldemar Billy M.D.,PhD T. CANDIDUS Negative Normal NEGATIVE [facility] Comment on above: Performed By: #### 2 27, 4418, 4420, 09213, 809, 46495, 374 #### [facility] [address], [address] [place], [place] [address] Event Sales Assistant: Octavio Segovia MD #### 30246, 50190 #### [facility], [address] [place], [place] Event Sales Assistant: Alejandra Queen MD,PhD,FADIA #### [phone] #### [facility] [address] [facility] [address] [place], [place] Event Sales Assistant: Waldemar Billy M.D.,PhD T. VULGARIS Negative Normal NEGATIVE [facility] Comment on above: Performed By: #### 2 27, 4418, 4420, 91485, 809, 06389, 374 #### [facility] of [address], [address] [place] [address] Event Sales Assistant: Octavio Segovia MD #### 50417, 11881 #### [facility], [address] [place] [address] Event Sales Assistant: Alejandra Queen MD,PhD,FADIA #### [phone] #### [facility]/[address] [place], [place] Event Sales Assistant: Waldemar Billy M.D.,PhD RHEUMATOID FACTORon 08-03-19 25 RHEUMATOID FACTOR 41 IU/mL High <14 [facility] Comment on above: Performed By: #### 2 27, 4418, 4420, 17572, 809, 21645, 374 #### [facility] of [address], [address] [place] [address] Event Sales Assistant: Octavio Segovia MD #### 37919, 24716 #### [facility]/[place] [address] Event Sales Assistant: Alejandra Queen MD,PhD,FADIA #### [id number] #### [facility]/[address] [place], [place] Event Sales Assistant: Waldemar Billy M.D.,PhD SED RATE BY MODIFIED WESTERG RENon 08-02-2024 SED RATE BY MODIFIED WESTERGREN 36 mm/h High < OR = 20 [facility] Comment on above: Performed By: #### 2 27, 4418, 4420, 86174, 809, 39606, 374 #### [facility] of [address] , [address] [place] [address] Event Sales Assistant: Octavio Segovia MD #### 50187, 61002 #### [facility], [address] [place] [address] Event Sales Assistant: Alejandra Queen MD,PhD,FADIA #### [phone] #### [facility] [address] [facility] [place] [address] Event Sales Assistant: Waldemar Billy M.D.,PhD TRANSTHORACIC ECHO (TTE) [facility] PLETE 07-23-2024 TRANSTHORACIC ECHO (TTE) COMPLETE [facility] [address], [address], [place] [address] TRANSTHORACIC ECHOCARDIOGRAM REPORT Patient Name: KRUNAL LEOS Reading Physician: [id number] David Nguyễn MD Study Date: 07/23/2024 Ordering Provider: [id number] PADRON MRN/PID: [id number] Fellow: Nurse: Date of /Age: 5 1965 [place] Finisher: nEa hernandez ALBERTO Gender assigned at Additional Staff: : Height: 175.26 cm Admit Date: Weight: 141.07 kg Admission Status: Outpatient BSA / BMI: 2.49 m2 / 45.93 kg/m2 Blood Pressure: 157/78 mmHg Department Location: [facility] Study Type: TRANSTHORACIC ECHO (TTE) COMPLETE Diagnosis/ICD: Pulmonary hypertension, unspecified-I27.20 Indication: Pulmonary hypertension CPT Code: Echo Complete w Full Doppler-21727 Study Detail: The following Echo studies were [...] VEINS: PulmV A Revs Dur: 121.00 msec [id number] David Nguyễn MD Electronically signed on 07/24/2024 at 9:17:53 AM Final [facility] CT CHEST HIGH RESOLUTIONon 0 07-20-2024 CT CHEST HIGH RESOLUTION Interpreted By: Julissa Bolaños, STUDY: CT CHEST HIGH RESOLUTION; 07/20/2024 12:56 pm INDICATION: Signs/Symptoms:ILD. COMPARISON: None. ACCESSION NUMBER(S): [id number] ORDERING CLINICIAN: ROSAILNO PADRON TECHNIQUE: Using helical multidetector technique, volumetric [...] Julissa Banuelos 07/20/2024 1:33 PM Dictation workstation: [id number] [facility] CT Cheston 07-20-2024 1. Extensive subpleu [...] Julissa Banuelos 07/20/2024 1:33 PM Dictation workstation: [id number] Interpreted By: Julissa Pleitez, STUDY: CT CHEST HIGH RESOLUTION; 07/20/2024 12:56 pm INDICATION: Signs/Symptoms:ILD. COMPARISON: None. ACCESSION NUMBER(S): [id number] ORDERING CLINICIAN: ROSALINO PADRON TECHNIQUE: Using helical [...] pm INDICATION: Signs/Symptoms:ILD. COMPARISON: None. ACCESSION NUMBER(S): [id number] ORDERING CLINICIAN: ROSALINO PADRON TECHNIQUE: Using helical [...] Julissa Banuelos 07/20/2024 1:33 PM Dictation workstation: [id number] [facility] Work Phone: Radiology Study observation (narrative) [facility] Work Phone: CT ChestOrdered By: Julissa Banuelos on 07-20-2024 [facility] Work Phone: Office Visit Reporton 2024 [facility] Visit [facility] Reporton Pulmonary Visit Report Normal [facility] Office Visit Reporton 2024 [facility] Patient called in as [...] and to seek medical attention immediately. Normal [facility] 12 Lead EKG performed by [facility] on 05-21-2024 12 Lead EKG performed by [facility] Normal [facility] Basic Metabolic Profile (BMP )on 05-21-2024 BUN/CRE 21.2 RATIO High 01-18 [facility] Comment on above: Performed By: #### L 500.2500 ####[facility] [address] [place], [place], [id number] [place],Total 9.6 mg/dL Normal 8.5-10.1 [facility] Comment on above: Performed By: #### L 500.2500 ####[facility] [address] [place], [place], [id number] Chloride [Moles/Vol] 99 mmol/L Normal 98-107 [facility] Comment on above: Performed By: #### L 500.2500 ####[facility] [address] [place], [address] CO2 [Moles/Vol] 26.0 mmol/L Normal 21.0-32.0 [facility] Comment on above: Performed By: #### L 500.2500 ####[facility] [address] [place], [address] Creatinine [Mass/Vol] 1.60 mg/dL High 0.70-1.30 [facility] Comment on above: Result Comment: The validity of the calculated GFR GFRAA in patients over70 years has not been determined. Clinical correlation isessential. Performed By: #### L 500.2500 ####[facility] [address] [place], [address] EST GFR - AA 57 mL/min Low >60 [facility] Comment on above: Result Comment: Afri can [place] GFR Calc Performed By: #### L 500.2500 ####[facility] [address] [place], [address] GAP 12 Normal 5-15 [facility] Comment on above: Performed By: #### L 500.2500 ####[facility] [address] [place], [address] GFR/1.73 sq M.predicted among non-blacks MDRD (S/P/Bld) [Vol rate/Area] 47 mL/min/{1.73_m2} Low >60 [facility] Comment on above: Result Comment: Non- GFR Calc Performed By: #### L 500.2500 ####[facility] [address] [place], [address] Glucose [Mass/Vol] 174 mg/dL High 74-106 [facility] Comment on above: Result Comment: Fast ing Glucose result greater than or equal to 126 mg/dLsuggests DIABETES MELLITUS per A.D.A. criteria. Performed By: #### L 500.2500 ####[facility] [address] [place], [address] Potassium [Moles/Vol] 3.8 mmol/L Normal 3.5-5.1 [facility] Comment on above: Performed By: #### L 500.2500 ####[facility] [address] [place], [address] Sodium [Moles/Vol] 136 mmol/L Normal 136-145 [facility] Comment on above: Performed By: #### L 500.2500 ####[facility] [address] [place], [address] Urea nitrogen [Mass/Vol] 34 mg/dL High 7-18 [facility] Comment on above: Performed By: #### L 500.2500 ####[facility] [address] [place], [place], [address] Bilirubin directOrdered By: SAV Rojas on 05-21-2024 Bilirubin.direct [Mass/Vol] 0.32 mg/dL High 0.00-0.30 [facility] Bilirubin, totalOrdered By: SAV Rojas on 05-21-2024 Bilirubin [Mass/Vol] 1.40 mg/dL High 0.20-1.00 [facility] Comment on above: For patients on eltr ombopag therapy, use of Dimension [place] TBIL is not recommended. Blood urea nitrogen (BUN)/cr eatinine ratioOrdered By: Lydia Segura on 05-21-2024 Urea nitrogen/Creatinine [Mass ratio] 21.2 mg/mg High 10-20 [facility] Carbon dioxide measurementOr dered By: Lydia Segura on 05-21-2024 CO2 [Moles/Vol] 26.0 mmol/L 21.0-32.0 [facility] Cardiology Visit Reporton Cardiology Visit Report Normal [facility] Chloride measurementOrdered By: Lydia Segura on 05-21-2024 Chloride [Moles/Vol] 99 mmol/L 98-107 [facility] Glomerular filtration rate ( GFR) estimationOrdered By: Lydia Segura on 05-21-2024 GFR/1.73 sq M.predicted among non-blacks MDRD (S/P/Bld) [Vol rate/Area] 47 mL/min/{1.73_m2} Low >60 [facility] Comment on above: Non- GFR Calc Glucose measurementOrdered B y: Lydia Segura on 05-21-2024 Glucose [Mass/Vol] 174 mg/dL High 74-106 [facility] Comment on above: Fasting Glucose resu lt greater than or equal to 126 mg/dL suggests DIABETES MELLITUS per A.D.A. criteria. Laboratory - Chemistry and C hemistry - challengeOrdered By: SAV Rojas on 05-21-2024 AST [Catalytic activity/Vol] 18 U/L 15-37 [facility] Liver Profileon 05-21-2024 Albumin [Mass/Vol] 3.4 g/dL Normal 3.2-5.0 [facility] Comment on above: Order Comment: 1 mo. after 1st dose of OFEV, monthly for 1st 3 mo Performed By: #### L 500.3400 ####[facility] [address] [place], [address] ALK P 81 U/L Normal 45-117 [facility] Comment on above: Order Comment: 1 mo. after 1st dose of OFEV, monthly for 1st 3 mo Performed By: #### L 500.3400 ####[facility] [address] [place], [address] ALT [Catalytic activity/Vol] 17 U/L Normal 16-61 [facility] Comment on above: Order Comment: 1 mo. after 1st dose of OFEV, monthly for 1st 3 mo Performed By: #### L 500.3400 ####[facility] [address] [place], [address] AST [Catalytic activity/Vol] 18 U/L Normal 15-37 [facility] Comment on above: Order Comment: 1 mo. after 1st dose of OFEV, monthly for 1st 3 mo Performed By: #### L 500.3400 ####[facility] [address] [place], [place], [address] Bilirubin [Mass/Vol] 1.40 mg/dL High 0.20-1.00 [facility] Comment on above: Order Comment: 1 mo. after 1st dose of OFEV, monthly for 1st 3 mo Result Comment: For patients on eltrombopag therapy, use of Dimension [place] TBIL is not recommended. Performed By: #### L 500.3400 ####[facility] [address] [place], [address] Bilirubin.direct [Mass/Vol] 0.32 mg/dL High 0.00-0.30 [facility] Comment on above: Order Comment: 1 mo. after 1st dose of OFEV, monthly for 1st 3 mo Performed By: #### L 500.3400 ####[facility] [address] [place], [place], [address] Globulin (S) [Mass/Vol] 5.1 g/dL High 2.2-4.2 [facility] Comment on above: Order Comment: 1 mo. after 1st dose of OFEV, monthly for 1st 3 mo Performed By: #### L 500.3400 ####[facility] [address] [place], [address] T PROT 8.5 g/dL High 6.4-8.2 [facility] Comment on above: Order Comment: 1 mo. after 1st dose of OFEV, monthly for 1st 3 mo Performed By: #### L 500.3400 ####[facility] [address] [place], [place], [id number] No Panel InformationOrdered By: SAV Rojas on 05-21-2024 18 U/L 15-37 [facility] Potassium measurementOrdered By: Lydia Segura on 05-21-2024 Potassium [Moles/Vol] 3.8 mmol/L 3.5-5.1 [facility] Serum anion gap measurementO rdered By: Lydia Segura on 05-21-2024 Anion gap [Moles/Vol] 12 mmol/L 5-15 [facility] Serum globulin measurementOr dered By: SAV Rojas on 05-21-2024 Globulin (S) [Mass/Vol] 5.1 g/dL High 2.2-4.2 [facility] Serum or plasma alanine briscoe otransferase (ALT) measurementOrdered By: SAV Rojas on 05-21-2024 ALT [Catalytic activity/Vol] 17 U/L 16-61 [facility] Serum or plasma albumin grazyna urement (mass/volume)Ordered By: SAV Rojas on 05-21-2024 Albumin [Mass/Vol] 3.4 g/dL 3.2-5.0 [facility] Serum or plasma alkaline benjamin sphatase measurementOrdered By: SAV Rojas on 05-21-2024 ALP [Catalytic activity/Vol] 81 U/L 45-117 [facility] Serum or plasma calcium grazyna urement (mass/volume)Ordered By: Lydia Segura on 05-21-2024 Calcium [Mass/Vol] 9.6 mg/dL 8.5-10.1 [facility] Serum or plasma creatinine m easurement (mass/volume)Ordered By: Lydia Segura on 05-21-2024 Creatinine [Mass/Vol] 1.60 mg/dL High 0.70-1.30 [facility] Comment on above: The validity of the calculated GFR & GFRAA in patients over 70 years has not been determined. Clinical correlation is essential. Serum or plasma urea nitroge n measurement (mass/volume)Ordered By: Lydia Segura on 05-21-2024 Urea nitrogen [Mass/Vol] 34 mg/dL High 7-18 [facility] Sodium levelOrdered By: Macho Segura on 05-21-2024 Sodium [Moles/Vol] 136 mmol/L 136-145 [facility] Total proteinOrdered By: SAV Rojas on 05-21-2024 Protein [Mass/Vol] 8.5 g/dL High 6.4-8.2 [facility] 36on 05-13-2024 36 Patient lv with questions about what medications he should be taking post op. I returned his call but had to [facility] with call back number. Normal [facility] 36on 05-08-2024 36 Spoke with Mr. Anibal [...] 1 year. Sooner prn. MD Jose Antonio [facility] ECG 12-LEADon 05-07-2024 ECG 12-LEAD IMPRESSION: Sinus rhythm Atrial premature complex LVH with IVCD and secondary repol abnrm Inferior infarct, age indeterminate Electronically Signed On 05-07-2024 10:34:37 EST by Krunal Allen [facility] APTTon 05-06-2024 aPTT Coag (Bld) [Time] 22.1 s Normal 20.0-30.5 [facility] Comment on above: Result Comment: DAPHNE Low COMMENTS: NOTE: The therapeutic time for Heparin anticoagulation, based on Xa activity inhibition, is an APTT of 46-80 seconds. Performed By: #### L AB320, [id number] ####Event Sales Assistant: RADHA SIMMONS ([phone])[facility] ([address] BASIC METABOLIC PANELon Anion gap [Moles/Vol] 9 mmol/L Normal 3-13 [facility] Center Comment on above: Performed By: #### L AB15 ####Event Sales Assistant: RADHA SIMMONS ([phone])[facility] [place] [address] Calcium [Mass/Vol] 8.5 mg/dL Low 8.8-10.0 [facility] Comment on above: Performed By: #### L AB15 ####Event Sales Assistant: RADHA SIMMONS ([phone])[facility] [place] [address] Chloride [Moles/Vol] 103 mmol/L Normal 98-107 [facility] Comment on above: Performed By: #### L AB15 ####Event Sales Assistant: RADHA SIMMONS ([phone])[facility] [place] [address] CO2 [Moles/Vol] 22 mmol/L Normal 22-29 [facility] Comment on above: Performed By: #### L AB15 ####Event Sales Assistant: RAHDA SIMMONS ([phone])[facility] ([facility])[address] [place] [address] Creatinine [Mass/Vol] 0.96 mg/dL Normal 0.72-1.25 [facility] Comment on above: Performed By: #### L AB15 ####Event Sales Assistant: RADHA SIMMONS ([phone])[facility] ([facility])[address] [place] [address] GLOMERULAR FILTRATION RATE ML/MIN/1.73 SQ M.PREDICTED >90.0 Normal >60.0 [facility] Comment on above: Result Comment: Calc ulation based on the Chronic Kidney Disease Epidemiology Collaboration (CKD-EPI) equation refit without adjustment for race Performed By: #### L AB15 ####Event Sales Assistant: RADHA SIMMONS ([phone])[facility] ([facility])[address] [place] [address] Glucose [Mass/Vol] 107 mg/dL High 74-100 [facility] Comment on above: Performed By: #### L AB15 ####Event Sales Assistant: RADHA SIMMONS ([phone])[facility] ([facility])[address] [place] [address] Potassium [Moles/Vol] 3.9 mmol/L Normal 3.5-5.1 [facility] Comment on above: Result Comment: TC Significant interference from hemolysis. Result integrity compromised. Interpret with caution. Performed By: #### L AB15 ####Event Sales Assistant: RADHA SIMMONS ([phone])[facility])[address] [place] [address] Sodium [Moles/Vol] 134 mmol/L Low 136-145 [facility] Comment on above: Performed By: #### L AB15 ####Event Sales Assistant: RADHA SIMMONS ([phone])[address] Urea nitrogen [Mass/Vol] 31 mg/dL High 9-23 [facility] Comment on above: Performed By: #### L AB15 ####Event Sales Assistant: RADHA SIMMONS ([phone])[address] Basic metabolic 1998 panelon 05-06-2024 Anion gap [Moles/Vol] 9 mmol/L 3 - 13 mmol/L [facility] Calcium [Mass/Vol] 8.5 mg/dL Low 8.8 - 10. 0 mg/dL [facility] Chloride [Moles/Vol] 103 mmol/L 98 - 10 7 mmol/L [facility] CO2 [Moles/Vol] 22 mmol/L 22 - 29 mmol/L [facility] Creatinine [Mass/Vol] 0.96 mg/dL 0.72 - 1.25 mg/dL [facility] GFR/1.73 sq M.predicted (S/P/Bld) [Vol rate/Area] - PINF [facility] Comment on above: Calculation based on the Chronic Kidney Disease Epidemiology Collaboration (CKD-EPI) equation refit without adjustment for race Glucose [Mass/Vol] 107 mg/dL High 74 - 100 mg/dL [facility] Interpretation and review of laboratory results Abnormal [facility] Potassium [Moles/Vol] 3.9 mmol/L 3.5 - 5.1 mmol/L [facility] Comment on above: TC Significant interference from hemolysis. Result integrity compromised. Interpret with caution. Sodium [Moles/Vol] 134 mmol/L Low 136 - 145 mmol/L [facility] Urea nitrogen [Mass/Vol] 31 mg/dL High 9 - 23 mg/dL [facility] CBC (HEMOGRAM)on 05-06-2024 Erythrocyte distribution width (RBC) [Ratio] 20.8 % High 11.5-15.0 [facility] Comment on above: Performed By: #### L AB294 ####Event Sales Assistant: RADHA SIMMONS ([phone])[facility])[address] [place] [address] Hematocrit (Bld) [Volume fraction] 30.1 % Low 40.0-52.0 [facility] Comment on above: Performed By: #### L AB294 ####Event Sales Assistant: RADHA SIMMONS ([phone])[facility])[address] [place] [address] Hemoglobin (Bld) [Mass/Vol] 9.0 g/dL Low 13.0-18.0 [facility] Comment on above: Performed By: #### L AB294 ####Event Sales Assistant: RADHA SIMMONS ([phone])[facility])[address] [place] [address] MCH (RBC) [Entitic mass] 22.5 pg Low 26.0-34.0 [facility] Comment on above: Performed By: #### L AB294 ####Event Sales Assistant: RADHA SIMMONS ([phone])[address] MCHC 29.9 % Low 30.5-36.0 [facility] Comment on above: Performed By: #### L AB294 ####Event Sales Assistant: RADHA SIMMONS ([phone])[address] MCV (RBC) [Entitic vol] 75.3 fL Low 77.0-99.0 [facility] Comment on above: Performed By: #### L AB294 ####Event Sales Assistant: RADHA [id number])[facility] ([facility])[address] [place] [address] Platelet mean volume (Bld) [Entitic vol] 10.2 fL Normal 9.0-12.7 [facility] Comment on above: Performed By: #### L AB294 ####Event Sales Assistant: RADHA SIMMONS ([phone])[facility])[address] [place] [address] Platelets (Bld) [#/Vol] 243 10*3/uL Normal 140-440 [facility] Comment on above: Performed By: #### L AB294 ####Event Sales Assistant: RADHA SIMMONS ([id number])[facility] ([facility])[address] [place] [address] RBC (Bld) [#/Vol] 4.00 10*6/uL Low 4.40-5.90 [facility] Comment on above: Performed By: #### L AB294 ####Event Sales Assistant: RADHA SIMMONS ([phone])[facility] ([facility])[address] [place] [address] WBC (Bld) [#/Vol] 11.1 10*3/uL High 3.6-10.7 [facility] Comment on above: Performed By: #### L AB294 ####Event Sales Assistant: RADHA SIMMONS ([phone])[facility])[address] [place] [address] CBC panel Auto (Bld)Ordered By: Krupa Rodriguez on 05-06-2024 Erythrocyte distribution width (RBC) [Ratio] 20.8 % High 11.5 - 15.0 % [facility] Hematocrit (Bld) [Volume fraction] 30.1 % Low 40.0 - 52.0 % [facility] Hemoglobin (Bld) [Mass/Vol] 9 g/dL Low 13.0 - 18.0 g/dL [facility] Interpretation and review of laboratory results Abnormal [facility] MCH (RBC) [Entitic mass] 22.5 pg Low 26.0 - 34.0 pg [facility] MCHC (RBC) [Mass/Vol] 29.9 % Low 30.5 - 36.0 % [facility] [email or web address] MCV (RBC) [Entitic vol] 75.3 fL Low 77.0 - 99.0 fL [facility] [email or web address] Platelet mean volume (Bld) [Entitic vol] 10.2 fL 9.0 - 12.7 fL [facility] [email or web address] Platelets (Bld) [#/Vol] 243 10*3/uL 140 - 440 10*3/uL [facility] [email or web address] RBC (Bld) [#/Vol] 4 10*6/uL Low 4.40 - 5.90 10*6/uL [facility] [email or web address] WBC (Bld) [#/Vol] 11.1 10*3/uL High 3.6 - 10.7 10*3/uL [facility] [email or web address] [facility] Consulton 05-06-2024 Consult CONSULT NOTE: STROKE SERVICE Pt. Name: Krunal Leos Age: 58 y.o. : 1965 Room: Room/bed info not found Code Status: Prior Date of Admission: 05/06/2024 Date of Service: 05/06/2024 Current Hospital Day: Hospital Day: 1 Requesting/Referring Physican: Mey Loya, ECOLOGICAL ECONOMIST - * Reason for Consultation: R MCA [...] PLAN: 1. Obtain P2 Y12 study 2. Steger Brilinta 90 mg twice daily x 30 [...] 10 to 15 minutes. Was hospitalized at [place] and had Plavix added at that time. [...] Symptoms resolved. He was again hospitalized at [facility]. No medication changes were made. April 2024: [...] Pt denie (more content not included)... Normal [facility] Laboratory - Coagulationon 0 05-06-2024 PT Coag (Bld) [Time] 10.9 s 9.0 - 1 2.0 s [facility] [email or web address] No Panel InformationOrdered By: Ana Maria Mancini on 05-06-2024 Interpretation and review of laboratory results Normal [facility] PRU Test (P2Y12) 211 180 - PINF [facility] Comment on above: >180 - 376 PRU [P2Y1 2 Reaction Units] - No drug present 10-180 PRU [P2Y12 Reaction Units] - Decreased platelet reactivity to P2Y12 inhibitor. [facility] [email or web address] No Panel Informationon 05-06 Interpretation and review of laboratory results Normal [facility] Nursing Noteon 05-06-2024 Nursing Note Phase 2 care complet ed. Iv removed and dc instructions provided. Will dc to home with family Right groin site benign and neuro unchanged NIH 0 Normal [facility] Nursing Note Patient arrived from home, Dr. Culp in to speak with the patient regarding DCA with possible carotid stenting, consent obtained. Patient was placed supine on exam table prepped and draped in sterile fashion. Telemetry monitors placed, sedation provided by FREIGHT TALLIER. Patient tolerated procedure well. Transfer to ICU. Normal [facility] PROTHROMBIN TIMEon INR Coag (PPP) [Relative time] 1.0 {INR} Normal 0.9-1.1 [facility] Comment on above: Result Comment: Luciano mmended [...] Myocardial Infarction Performed By: #### Vic AB320, [id number] ####Event Sales Assistant: RADHA SIMMONS ([phone])[facility] ([facility])[address] [place] [address] PT Coag (PPP) [Time] 10.9 s Normal 9.0-12.0 [facility] Comment on above: Performed By: #### Vic AB320, [id number] ####Event Sales Assistant: RADHA SIMMONS ([phone])[facility] ([facility])[address] [place] [address] PRU TEST (P2Y12)on PRU TEST (P2Y12) 211 Normal >=180 [facility] Comment on above: Result Comment: >180 - 376 PRU [P2Y12 Reaction Units] - No drug present 10-180 PRU [P2Y12 Reaction Units] - Decreased platelet reactivity to P2Y12 inhibitor. Performed By: #### L [id number] ####Event Sales Assistant: RADHA SIMMONS ([phone])[facility] [place] [address] PT Coag (Bld) [Time]on 05-06 INR Coag (PPP) [Relative time] 1 {INR} 0.9 - 1.1 [facility] Comment on above: Recommended Anticoag ulant Therapy: [...] MD Electronically Signed Date/Time: 05/06/2024 3:33 PM [facility] 1965 [id number] Exam Date/Time: 05/06/2024 13:48 Procedure: IR ANGIOGRAM CEREBRAL W POSSIBLE INTERVENTION Ordering Provider: LOYA VALERIE Reason For Exam: stenosis of left internal carotid artery aneurysm Procedure: Diagnostic cerebral angiogram Credit Cashier/Treating Physicians: Oziel Culp MD Assistants: Armin RT; CAMILA DALTON; HEIDE Saavedra Clinical Information: The patient is a 58 yo man who 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 He has had multiple events despite treatment with Eliquis (for atrial fibrillation), ASA and clopidogrel. The most recent event was 2 weeks ago, and he follows in [place]. CTA was concerning for left ICA severe stenosis and he presented for conventional angiography to evaluate and treat carotid stenosis if present and further evaluate right MCA stenosis. Consent: The benefits, alternatives, and risks to the procedure including but not limited to stroke, bleed, infection, dissection, pseudoaneurysm, ID, renal failure, radiation injury, hair loss, contrast [...] 4F dilator was exchanged for a 5 [place] short sheath over a guidewire. The short [...] left midd (more content not included)... 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 He has had multiple events despite treatment with Eliquis (for atrial fibrillation), ASA and clopidogrel. The most recent event was 2 weeks ago, and he follows in [place]. CTA was concerning for left ICA severe stenosis and he presented for conventional angiography to evaluate and treat carotid stenosis if present and further evaluate right MCA stenosis. Consent: The benefits, alternatives, and risks to the procedure including but not limited to stroke, bleed, infection, dissection, pseudoaneurysm, ID, renal failure, radiation injury, hair loss, contrast [...] 4F dilator was exchanged for a 5 [place] short sheath over a guidewire. The short [...] AP and late (more content not included)... [facility] Radiology Study observation (narrative) [facility] alth RFA Cerebral arteries Bilate ral Views W contrast IAOrdered By: Oziel Culp on 05-06-2024 [facility] Work Phone: aPTT Coag (Bld) [Time]on aPTT Coag (PPP) [Time] 22.1 s 20.0 - 30.5 s [facility] NOTE: The therapeuti c time for Heparin anticoagulation, based on Xa activity inhibition, is an APTT of 46-80 seconds. [facility] Absolute lymphocyte countOrd ered By: Rito Lundberg on 05-05-2024 Lymphocytes Auto (Unsp spec) [#/Vol] 1.51 10*3/uL 0.83-4.51 [facility] Automated lymphocyte count a s percentage of total leukocytesOrdered By: Rtio Lundberg on 05-05-2024 Lymphocytes/100 WBC Auto (Unsp spec) 11.3 % Low 19-41 [facility] Basophil percentageOrdered B y: Rito Lundberg on 05-05-2024 Basophils/100 WBC (Bld) 0.4 % 0-1 [facility] Blood manual differential co mment interpretation (narrative result)Ordered By: Rito Lundberg on 05-05-2024 Manual differential comment Cedrick (Bld) [Interp] SCANNED [facility] CBC W/Diff, Automatedon OVALOCYTE 2+ Normal [facility] Comment on above: Performed By: #### L 503.6030, L503.0105, L100.0100, L503.6550 ####[facility] [address] [place], [address] Anisocytosis Ql (Bld) 2+ Normal [facility] Comment on above: Performed By: #### L 503.6030, L503.0105, L100.0100, L503.6550 ####[facility] [address] [place], [address] MICROCYTIC 1+ Normal [facility] Comment on above: Performed By: #### L 503.6030, L503.0105, L100.0100, L503.6550 ####[facility] [address] [place], [address] PLT EST ADEQUATE Normal ADEQ [facility] Comment on above: Performed By: #### L 503.6030, L503.0105, L100.0100, L503.6550 ####[facility] [address] [place], [address] SMEAR COMMENT SCANNED Normal [facility] Comment on above: Performed By: #### L 503.6030, L503.0105, L100.0100, L503.6550 ####[facility] [address] [place], [address] Eosinophil percentageOrdered By: Rito Lundberg on 05-05-2024 Eosinophils/100 WBC (Bld) 2.1 % 0-5 [facility] Erythrocyte distribution wid th ratioOrdered By: Rito Lundberg on 05-05-2024 Erythrocyte distribution width (RBC) [Ratio] 21.0 % High 11.6-14.6 [facility] Erythrocyte distribution wid th standard deviationOrdered By: Rito Lundberg on 05-05-2024 Erythrocyte distribution width (RBC) [Ratio] 56.7 fl High 35.1-43.9 [facility] Ferritinon 05-05-2024 Ferritin [Mass/Vol] 134 ng/mL Normal 26-388 [facility] Comment on above: Performed By: #### L 503.6030, L503.0105, L100.0100, L503.6550 ####[facility] [address] [place], [address] Hematocrit Auto (Bld) [Volum e fraction]Ordered By: Rito Lundberg on 05-05-2024 Hematocrit (Bld) [Volume fraction] 31.6 % Low 40-54 [facility] Hemoglobin measurementOrdere d By: Rito Lundberg on 05-05-2024 Hemoglobin (Bld) [Mass/Vol] 9.3 g/dL Low 13.0-16.5 [facility] Immature granulocytes/100 WB C Auto (Bld)Ordered By: [facility] Lund[facility] on 05-05-2024 Immature granulocytes/100 WBC (Bld) 0.600 % 0.0-0.9 [facility] Iron measurement (mass/mass) Ordered By: Rito Lundberg on 05-05-2024 Iron (Unsp spec) [Mass/Mass] 74 ug/dL 65-175 [facility] Iron+Iron Binding Capacityon 05-05-2024 Iron [Mass/Vol] 74 ug/dL Normal 65-175 [facility] Comment on above: Performed By: #### L 503.6030, L503.0105, L100.0100, L503.6550 ####[facility] [address] [place], [address] IRON SATURATION 22.0 Normal 15.0-55.0 [facility] Comment on above: Performed By: #### L 503.6030, L503.0105, L100.0100, L503.6550 ####[facility] [address] [place], [address] TIBC 337 ug/dL Normal 250-450 [facility] Comment on above: Performed By: #### L 503.6030, L503.0105, L100.0100, L503.6550 ####[facility] [address] [place], [address] MCV (mean corpuscular volume ) determinationOrdered By: Rito Lundberg on 05-05-2024 MCV (RBC) [Entitic vol] 76.5 fL Low 80-94 [facility] Mean corpuscular hemoglobin (MCH) determinationOrdered By: Rito Lundberg on 05-05-2024 MCH (RBC) [Entitic mass] 22.5 pg Low 27.0-32.0 [facility] Monocyte percentageOrdered B y: Rito Lundberg on 05-05-2024 Monocytes/100 WBC (Bld) 8.1 % 0-10 [facility] Neutrophil percentageOrdered By: Rito Lundberg on 05-05-2024 Neutrophils/100 WBC (Bld) 77.5 % High 47-70 [facility] No Panel InformationOrdered By: Rito Lundberg on 05-05-2024 2+ [facility] Nursing Noteon 05-05-2024 Nursing Note Report given to MARIO marsh, neuro assessment completed along with groin site check. Normal [facility] Oncology Visit Reporton Oncology Visit Report Normal [facility] Ovalocyte detectionOrdered B y: Rito Lundberg on 05-05-2024 Ovalocytes LM Ql (Bld) 2+ [facility] Platelet countOrdered By: Chanell Lundberg on 05-05-2024 Platelets (Bld) [#/Vol] 303 10*3/uL 150-450 [facility] Platelet estimateOrdered By: Rito Lundberg on 05-05-2024 Platelets LM Ql (Bld) ADEQUATE ADEQ [facility] RBC Auto (Bld) [#/Vol]Ordere d By: Rito Lundberg on 05-05-2024 RBC (Bld) [#/Vol] 4.13 10*6/uL Low 4.6-6.2 [facility] Serum or plasma iron saturat ion measurement (mass fraction)Ordered By: Rito Lundberg on 05-05-2024 Iron saturation [Mass fraction] 22.0 % 15.0-55.0 [facility] Vitamin B12on 05-05-2024 Cobalamin (Vitamin B12) [Mass/Vol] 1259 pg/mL High 211-911 [facility] Comment on above: Performed By: #### L 503.6030, L503.0105, L100.0100, L503.6550 ####[facility] [address] [place], [address] Vitamin B12 measurementOrder ed By: Rito Lundberg on 05-05-2024 Cobalamin (Vitamin B12) [Mass/Vol] 1259 pg/mL High 211-911 [facility] White blood cell (WBC) count Ordered By: Rito Lundberg on 05-05-2024 WBC (Bld) [#/Vol] 13.3 10*3/uL High 4.4-11.0 [facility] Pulmonary Visit Reporton Pulmonary Visit Report Normal [facility] Cardiology Visit Reporton Cardiology Visit Report Normal [facility] MR/BMS.BVSon 04-30-2024 MR/BMS.BVS Normal [facility] Office Visit Reporton 2024 Office Visit Report Normal [facility] 36on 04-27-2024 36 Spoke with patient t [...] iv contrast dye, iodine, or shellfish. Normal [facility] Office Visiton 04-27-2024 Follow-up visit [id number] Krunal Leos 1965 M Date Provider Department Center 04/27/2024 [id number], SUZY SH [facility]MAN None No family history on file Level of Service:65166 [place] OFFICE/OUTPATIENT ESTABLISHED MOD MDM 30 MIN Reason for Visit and Comments: Follow-up [173634] - discuss carotid duplex 04/06/23 [facility] Progress Noteon 04-27-2024 Progress Note [...] Stallworth MD ergocalciferol (Vitamin D2) 1.25 MG (01568 UT) capsule Take 1 capsule by mouth [...] 2023. 10/06/23 01/06/24 Harmeet Stallworth MD HYDROcodone-acetaminophen (Jordan) 5-325 MG tablet Take 1 tablet by [...] MD pantop (more content not included)... Normal [facility] Vitamin B12on 04-27-2024 Cobalamin (Vitamin B12) [Mass/Vol] 572 pg/mL Normal 211-911 [facility] Comment on above: Performed By: #### L 100.0100, L100.9950, L503.6550, L503.0105, L503.6030 ####[facility] [address] [place], [place], [id number] Absolute lymphocyte countOrd ered By: Cookie Bell on 04-25-2024 Lymphocytes Auto (Unsp spec) [#/Vol] 1.80 10*3/uL 0.83-4.51 [facility] Automated lymphocyte count a s percentage of total leukocytesOrdered By: White on 04-25-2024 Lymphocytes/100 WBC Auto (Unsp spec) 14.4 % Low 19-41 [facility] Basophil percentageOrdered B y: White on 04-25-2024 Basophils/100 WBC (Bld) 0.5 % 0-1 [facility] Bedside Glucoseon 04-25-2024 FINGERSTICK GLU 252 mg/dL High [address] [facility] Comment on above: Result Comment: ANI GEMENT OF PATIENT CARE PER NURSING PROTOCOL Performed By: #### L 501.080 ####[facility] [address] [place], [address] FINGERSTICK GLU 160 mg/dL High [address] [place] [address] Comment on above: Result Comment: ANI GEMENT OF PATIENT CARE PER NURSING PROTOCOL Performed By: #### L 501.080 ####[facility] [address] [place], [address] FINGERSTICK GLU 249 mg/dL High [address] [place] [address] Comment on above: Result Comment: ANI GEMENT OF PATIENT CARE PER NURSING PROTOCOL Performed By: #### L 501.080 ####[facility] [address] [place], [address] Bilirubin, totalOrdered By: White on 04-25-2024 Bilirubin [Mass/Vol] 0.60 mg/dL 0.20-1.00 [facility] Blood manual differential co mment interpretation (narrative result)Ordered By: White on 04-25-2024 Manual differential comment Cedrick (Bld) [Interp] SCANNED [facility] Blood polychromasia detectio n by light microscopyOrdered By: White on 04-25-2024 Polychromasia LM Ql (Bld) RARE [facility] Blood schistocyte detection by light microscopyOrdered By: White on 04-25-2024 Schistocytes LM Ql (Bld) RARE [facility] Brain without Contraston Brain without Contrast Normal [facility] CBC W/Diff, Automatedon 04-02 [employer] CELLS RARE Normal [facility] Comment on above: Performed By: #### L 500.4100, L501.9985, L500.4050, L501.9520, L100.0100 ####[facility] [address] [place], [address] MICROCYTIC 1+ Normal [facility] Comment on above: Performed By: #### L 500.4100, L501.9985, L500.4050, L501.9520, L100.0100 ####[facility] [address] [place], [address] SCHISTOCYTES RARE Normal [facility] Comment on above: Performed By: #### L 500.4100, L501.9985, L500.4050, L501.9520, L100.0100 ####[facility] [address] [place], [address] POLYCHROMASIA RARE Normal [facility] Comment on above: Performed By: #### L 500.4100, L501.9985, L500.4050, L501.9520, L100.0100 ####[facility] [address] [place], [address] SMEAR COMMENT SCANNED Normal [facility] Comment on above: Performed By: #### L 500.4100, L501.9985, L500.4050, L501.9520, L100.0100 ####[facility] [address] [place], [address] Carbon dioxide measurementOr dered By: Cookie Bell on 04-25-2024 CO2 [Moles/Vol] 26.0 mmol/L 21.0-32.0 [facility] Chloride measurementOrdered By: Cookie Bell on 04-25-2024 Chloride [Moles/Vol] 103 mmol/L 98-107 [facility] Comprehensive Metabolic Prof ilon 04-25-2024 Albumin [Mass/Vol] 2.8 g/dL Low 3.2-5.0 [facility] Comment on above: Performed By: #### L 500.4100, L501.9985, L500.4050, L501.9520, L100.0100 ####[facility] [address] [place], [address] Albumin/Globulin [Mass ratio] 0.7 {ratio} Low 0.9-2.4 [facility] Comment on above: Performed By: #### L 500.4100, L501.9985, L500.4050, L501.9520, L100.0100 ####[facility] [address] [place], [address] ALK P 69 U/L Normal 45-117 [facility] Comment on above: Performed By: #### L 500.4100, L501.9985, L500.4050, L501.9520, L100.0100 ####[facility] [address] [place], [address] ALT [Catalytic activity/Vol] 18 U/L Normal 16-61 [facility] Comment on above: Performed By: #### L 500.4100, L501.9985, L500.4050, L501.9520, L100.0100 ####[facility] [address] [place], [address] AST [Catalytic activity/Vol] 13 U/L Low 15-37 [facility] Comment on above: Performed By: #### L 500.4100, L501.9985, L500.4050, L501.9520, L100.0100 ####[facility] [address] [place], [address] Bilirubin [Mass/Vol] 0.60 mg/dL Normal 0.20-1.00 [facility] Comment on above: Result Comment: For patients on eltrombopag therapy, use of Dimension [place] TBIL is not recommended. Performed By: #### L 500.4100, L501.9985, L500.4050, L501.9520, L100.0100 ####[facility] [address] [place], [address] BUN/CRE 26.3 RATIO High 10-20 [facility] Comment on above: Performed By: #### L 500.4100, L501.9985, L500.4050, L501.9520, L100.0100 ####[facility] [address] [place], [address] CA,Total 8.5 mg/dL Normal 8.5-10.1 [facility] Comment on above: Performed By: #### L 500.4100, L501.9985, L500.4050, L501.9520, L100.0100 ####[facility] [address] [place], [address] Chloride [Moles/Vol] 103 mmol/L Normal 98-107 [facility] Comment on above: Performed By: #### L 500.4100, L501.9985, L500.4050, L501.9520, L100.0100 ####[facility] [address] [place], [address] CO2 [Moles/Vol] 26.0 mmol/L Normal 21.0-32.0 [facility] Comment on above: Performed By: #### L 500.4100, L501.9985, L500.4050, L501.9520, L100.0100 ####[facility] [address] [place], [address] Creatinine [Mass/Vol] 1.14 mg/dL Normal 0.70-1.30 [facility] Comment on above: Result Comment: The validity of the calculated GFR GFRAA in patients over70 years has not been determined. Clinical correlation isessential. Performed By: #### L 500.4100, L501.9985, L500.4050, L501.9520, L100.0100 ####[facility] [address] [place], [address] ECRCL 94.76 ml/min Normal [facility] Comment on above: Performed By: #### L 500.4100, L501.9985, L500.4050, L501.9520, L100.0100 ####[facility] [address] [place], [address] EST GFR - AA 84 mL/min Normal >60 [facility] Comment on above: Result Comment: Afri can [place] GFR Calc Performed By: #### L 500.4100, L501.9985, L500.4050, L501.9520, L100.0100 ####[facility] [address] [place], [address] GAP 8 Normal 5-15 [facility] Comment on above: Performed By: #### L 500.4100, L501.9985, L500.4050, L501.9520, L100.0100 ####[facility] [address] [place], [address] GFR/1.73 sq M.predicted among non-blacks MDRD (S/P/Bld) [Vol rate/Area] 70 mL/min/{1.73_m2} Normal >60 [facility] Comment on above: Result Comment: Non- GFR Calc Performed By: #### L 500.4100, L501.9985, L500.4050, L501.9520, L100.0100 ####[facility] [address] [place], [address] Globulin (S) [Mass/Vol] 4.0 g/dL Normal 2.2-4.2 [facility] Comment on above: Performed By: #### L 500.4100, L501.9985, L500.4050, L501.9520, L100.0100 ####[facility] [address] [place], [address] Glucose [Mass/Vol] 172 mg/dL High 74-106 [facility] Comment on above: Result Comment: Fast ing Glucose result greater than or equal to 126 mg/dLsuggests DIABETES MELLITUS per A.D.A. criteria. Performed By: #### L 500.4100, L501.9985, L500.4050, L501.9520, L100.0100 ####[facility] [address] [place], [address] Potassium [Moles/Vol] 3.7 mmol/L Normal 3.5-5.1 [facility] Comment on above: Performed By: #### L 500.4100, L501.9985, L500.4050, L501.9520, L100.0100 ####[facility] [address] [place], [address] Sodium [Moles/Vol] 137 mmol/L Normal 136-145 [facility] Comment on above: Performed By: #### L 500.4100, L501.9985, L500.4050, L501.9520, L100.0100 ####[facility] [address] [place], [address] T PROT 6.8 g/dL Normal 6.4-8.2 [facility] Comment on above: Performed By: #### L 500.4100, L501.9985, L500.4050, L501.9520, L100.0100 ####[facility] [address] [place], [address] Urea nitrogen [Mass/Vol] 30 mg/dL High 7-18 [facility] Comment on above: Performed By: #### L 500.4100, L501.9985, L500.4050, L501.9520, L100.0100 ####[facility] [address] [place], [address] Eosinophil percentageOrdered By: Cookie Bell on 04-25-2024 Eosinophils/100 WBC (Bld) 3.1 % 0-5 [facility] Erythrocyte distribution wid th ratioOrdered By: Cookie Bell on 04-25-2024 Erythrocyte distribution width (RBC) [Ratio] 20.5 % High 11.6-14.6 [facility] Erythrocyte distribution wid th standard deviationOrdered By: Cookie Arabella on 04-25-2024 Erythrocyte distribution width (RBC) [Ratio] 54.5 fl High 35.1-43.9 [facility] Glomerular filtration rate ( GFR) estimationOrdered By: Cookie Bell on 04-25-2024 GFR/1.73 sq M.predicted among non-blacks MDRD (S/P/Bld) [Vol rate/Area] 70 mL/min/{1.73_m2} >60 [facility] Glucose measurementOrdered B y: Cookie Bell on 04-25-2024 Glucose [Mass/Vol] 172 mg/dL High 74-106 [facility] Gl[facility] at [facility] deOrdered By: Ochoa Johnson on 04-25-2024 Glucose [Mass/Vol] 252 mg/dL High 74-106 [facility] Hematocrit Auto (Bld) [Volum e fraction]Ordered By: Cookie Bell on 04-25-2024 Hematocrit (Bld) [Volume fraction] 29.2 % Low 40-54 [facility] Hemoglobin A1con 04-25-2024 HbA1c (Bld) [Mass fraction] 7.3 % High 3.8-5.6 [facility] Comment on above: Result Comment: Norm al < 5.7 % Prediabetic 5.7 - 6.4 % Diabetic >or= 6.5 % Please note range changes. Performed By: #### L 500.1020, L501.9985, L500.4050, L501.9520, L100.0100 ####[facility] [address] [facility] [place], [address] Hemoglobin A1c percentageOrd ered By: Cookie Bell on 04-25-2024 HbA1c (Bld) [Mass fraction] 7.3 % High 3.8-5.6 [facility] Hemoglobin measurementOrdere d By: Cookie Bell on 04-25-2024 Hemoglobin (Bld) [Mass/Vol] 8.6 g/dL Low 13.0-16.5 [facility] High density lipoprotein (HD L) measurementOrdered By: Cookie White on 04-25-2024 High density lipoprotein (HDL) measurement 38 mg/dL Low >40 [facility] Immature granulocytes/100 WB C Auto (Bld)Ordered By: [facility] White on 04-25-2024 Immature granulocytes/100 WBC (Bld) 0.600 % 0.0-0.9 [facility] L501.4020on 04-25-2024 TROPONIN-I HS 76 pg/mL Normal 3.0-78.0 [facility] Comment on above: Order Comment: Comme nts: SPECIMEN #3'TROP' Serial specimen #1, #2 or #3: 3 Result Comment: Plea se Note: New Test Units and Gender Specific Reference Ranges. For more information see Policy Stat Procedure [place] High Sensitivity Troponin (TNIH) and attachments. Performed By: #### L 501.4020 ####[facility] [address] [place], [place], [id number] TROPONIN-I HS 103 pg/mL High 3.0-78.0 [facility] Comment on above: Order Comment: Comme nts: SPECIMEN #2'TROP' Serial specimen #1, #2 or #3: 2 Result Comment: Plea se Note: New Test Units and Gender Specific Reference Ranges. For more information see Policy Stat Procedure [place] High Sensitivity Troponin (TNIH) and attachments. Performed By: #### L 501.4020 ####[facility] [address] [place], [place], [id number] Lipid Profileon 04-25-2024 Cholesterol [Mass/Vol] 127 mg/dL Normal 200 [facility] Comment on above: Result Comment: <200 mg/dL Desirable 200-240 mg/dL Borderline >240 mg/dL High Risk Performed By: #### L 500.4100, L501.9985, L500.4050, L501.9520, L100.0100 ####[facility] [address] [place], [address] Cholesterol in HDL [Mass/Vol] 38 mg/dL Low [facility] Comment on above: Result Comment: The drugs N-Acetylcysteine and Metamizole may falselydepress this assay. Reference Range HDL <40 mg/dL Low HDL Cholesterol HDL >or= 60 mg/dL High HDL Cholesterol Performed By: #### L 500.4100, L501.9985, L500.4050, L501.9520, L100.0100 ####[facility] [address] [place], [address] Cholesterol in LDL [Mass/Vol] 46 mg/dL Normal 0-130 [facility] Comment on above: Performed By: #### L 500.4100, L501.9985, L500.4050, L501.9520, L100.0100 ####[facility] [address] [place], [address] Cholesterol in VLDL [Mass/Vol] 43 mg/dL High 5-40 [facility] Comment on above: Performed By: #### L 500.4100, L501.9985, L500.4050, L501.9520, L100.0100 ####[facility] [address] [place], [address] Triglyceride [Mass/Vol] 216 mg/dL High [facility] Comment on above: Result Comment: The drugs N-Acetylcysteine and Metamizole may falselydepress this assay.Serum Triglycerides Reference Interval Normal <150 mg/dL Borderline high 150 - 199 mg/dL High 200 - 499 mg/dL Very High > or = 500 mg/dL Performed By: #### L 500.4100, L501.9985, L500.4050, L501.9520, L100.0100 ####[facility] [address] [place], [address] Low density lipoprotein (LDL ) cholesterol measurementOrdered By: Cookie Bell on 04-25-2024 Low density lipoprotein (LDL) cholesterol measurement 46 mg/dL 0-130 [facility] MCV (mean corpuscular volume ) determinationOrdered By: Cookie Bell on 04-25-2024 MCV (RBC) [Entitic vol] 75.3 fL Low 80-94 [facility] MR/CON.PCM.NEon 04-25-2024 MR/CON.PCM.NE Normal [facility] Mean corpuscular hemoglobin (MCH) determinationOrdered By: Cookie Bell on 04-25-2024 MCH (RBC) [Entitic mass] 22.2 pg Low 27.0-32.0 [facility] Monocyte percentageOrdered B y: Cookie Arabella on 04-25-2024 Monocytes/100 WBC (Bld) 9.8 % 0-10 [facility] Neutrophil percentageOrdered By: Cookie Arabella on 04-25-2024 Neutrophils/100 WBC (Bld) 71.6 % High 47-70 [facility] No Panel InformationOrdered By: Cookie Bell on 04-25-2024 13 U/L Low 15-37 [facility] Platelet countOrdered By: Katey Bell on 04-25-2024 Platelets (Bld) [#/Vol] 300 10*3/uL 150-450 [facility] Potassium measurementOrdered By: Cookie Bell on 04-25-2024 Potassium [Moles/Vol] 3.7 mmol/L 3.5-5.1 [facility] RBC Auto (Bld) [#/Vol]Ordere d By: Cookie Bell on 04-25-2024 RBC (Bld) [#/Vol] 3.88 10*6/uL Low 4.6-6.2 [facility] Serum globulin measurementOr dered By: Cookie Bell on 04-25-2024 Globulin (S) [Mass/Vol] 4.0 g/dL 2.2-4.2 [facility] Serum or plasma alanine briscoe otransferase (ALT) measurementOrdered By: Cookie Bell on 04-25-2024 ALT [Catalytic activity/Vol] 18 U/L 16-61 [facility] Serum or plasma albumin grazyna urement (mass/volume)Ordered By: Cookie Bell on 04-25-2024 Albumin [Mass/Vol] 2.8 g/dL Low 3.2-5.0 [facility] Serum or plasma alkaline benjamin sphatase measurementOrdered By: Cookie Bell on 04-25-2024 ALP [Catalytic activity/Vol] 69 U/L 45-117 [facility] Serum or plasma calcium grazyna urement (mass/volume)Ordered By: Cookie Bell on 04-25-2024 Calcium [Mass/Vol] 8.5 mg/dL 8.5-10.1 [facility] Serum or plasma cholesterol measurement (mass/volume)Ordered By: Cookie Bell on 04-25-2024 Cholesterol [Mass/Vol] 127 mg/dL <200 [facility] Serum or plasma creatinine m easurement (mass/volume)Ordered By: Cookie Bell on 04-25-2024 Creatinine [Mass/Vol] 1.14 mg/dL 0.70-1.30 [facility] Serum or plasma thyroid stim ulating hormone (TSH) measurement (units/volume)Ordered By: Cookie Bell on 04-25-2024 TSH Qn 5.220 uIU/mL High 0.358-3.74 0 [facility] Serum or plasma urea nitroge n measurement (mass/volume)Ordered By: Cookie Bell on 04-25-2024 Urea nitrogen [Mass/Vol] 30 mg/dL High 7-18 [facility] Sodium levelOrdered By: Celyu mn Arabella on 04-25-2024 Sodium [Moles/Vol] 137 mmol/L 136-145 [facility] Target cell detectionOrdered By: Cookie Bell on 04-25-2024 Target cells LM Ql (Bld) RARE [facility] Thyroid Stim Hormone (TSH)on 04-25-2024 TSH 5.220 uIU/mL High 0.358-3.74 0 [facility] Comment on above: Performed By: #### L 500.0400, L501.9985, L500.4050, L501.9520, L100.0100 ####[facility] [address] [place], [place], [id number] Total proteinOrdered By: Aut umn Arabella on 04-25-2024 Protein [Mass/Vol] 6.8 g/dL 6.4-8.2 [facility] Troponin IOrdered By: Cookie Bell on 04-25-2024 Troponin I 76 pg/mL 3.0-78.0 [facility] Very low density lipoprotein (VLDL) cholesterol measurementOrdered By: Cookie Arabella on 04-25-2024 Very low density lipoprotein (VLDL) cholesterol measurement 43 mg/dL High 5-40 [facility] White blood cell (WBC) count Ordered By: Cookie Bell on 04-25-2024 WBC (Bld) [#/Vol] 12.5 10*3/uL High 4.4-11.0 [facility] 12 Lead EKGon 04-24-2024 12 Lead EKG Normal [facility] Abdomen Single View (Portabl e)on 04-24-2024 Abdomen Single View (Portable) Normal [facility] Absolute lymphocyte countOrd ered By: Radha Khan on 04-24-2024 Lymphocytes Auto (Unsp spec) [#/Vol] 2.02 10*3/uL 0.83-4.51 [facility] Activated partial thrombopla stin time (aPTT) in platelet poor plasma by coagulation aOrdered By: Daniel Mcneil on 04-24-2024 aPTT Coag (PPP) [Time] 24.8 s 24.1-36.2 [facility] Automated lymphocyte count a s percentage of total leukocytesOrdered By: Radha Khan on 04-24-2024 Lymphocytes/100 WBC Auto (Unsp spec) 14.4 % Low 19-41 [facility] Basic Metabolic Profile (BMP )on 04-24-2024 BUN/CRE 28.5 RATIO High 10-20 [facility] Comment on above: Order Comment: 'TROP ' Serial specimen #1, #2 or #3: 1 Performed By: #### L 500.2500, L300.3900, L300.4310, L100.0100, L501.4020 ####[facility] [address] [place], [place], [id number] CA,Total 8.9 mg/dL Normal 8.5-10.1 [facility] Comment on above: Order Comment: 'TROP ' Serial specimen #1, #2 or #3: 1 Performed By: #### L 500.2500, L300.3900, L300.4310, L100.0100, L501.4020 ####[facility] [address] [place], [address] Chloride [Moles/Vol] 106 mmol/L Normal 98-107 [facility] Comment on above: Order Comment: 'TROP ' Serial specimen #1, #2 or #3: 1 Performed By: #### L 500.2500, L300.3900, L300.4310, L100.0100, L501.4020 ####[facility] [address] [place], [address] CO2 [Moles/Vol] 27.0 mmol/L Normal 21.0-32.0 [facility] Comment on above: Order Comment: 'TROP ' Serial specimen #1, #2 or #3: 1 Performed By: #### L 500.2500, L300.3900, L300.4310, L100.0100, L501.4020 ####[facility] [address] [place], [address] Creatinine [Mass/Vol] 1.30 mg/dL Normal 0.70-1.30 [facility] Comment on above: Order Comment: 'TROP ' Serial specimen #1, #2 or #3: 1 Result Comment: The validity of the calculated GFR GFRAA in patients over70 years has not been determined. Clinical correlation isessential. Performed By: #### L 500.2500, L300.3900, L300.4310, L100.0100, L501.4020 ####[facility] [address] [place], [address] ECRCL 84.56 ml/min Normal [facility] Comment on above: Order Comment: 'TROP ' Serial specimen #1, #2 or #3: 1 Performed By: #### L 500.2500, L300.3900, L300.4310, L100.0100, L501.4020 ####[facility] [address] [place], [address] EST GFR - AA 72 mL/min Normal >60 [facility] Comment on above: Order Comment: 'TROP ' Serial specimen #1, #2 or #3: 1 Result Comment: Afri can [place] GFR Calc Performed By: #### L 500.2500, L300.3900, L300.4310, L100.0100, L501.4020 ####[facility] [address] [place], [address] GAP 6 Normal 5-15 [facility] Comment on above: Order Comment: 'TROP ' Serial specimen #1, #2 or #3: 1 Performed By: #### L 500.2500, L300.3900, L300.4310, L100.0100, L501.4020 ####[facility] [address] [place], [address] GFR/1.73 sq M.predicted among non-blacks MDRD (S/P/Bld) [Vol rate/Area] 60 mL/min/{1.73_m2} Normal >60 [facility] Comment on above: Order Comment: 'TROP ' Serial specimen #1, #2 or #3: 1 Result Comment: Non- GFR Calc Performed By: #### L 500.2500, L300.3900, L300.4310, L100.0100, L501.4020 ####[facility] [address] [place], [address] Glucose [Mass/Vol] 81 mg/dL Normal 74-106 [facility] Comment on above: Order Comment: 'TROP ' Serial specimen #1, #2 or #3: 1 Performed By: #### L 500.2500, L300.3900, L300.4310, L100.0100, L501.4020 ####[facility] [address] [place], [address] Potassium [Moles/Vol] 4.2 mmol/L Normal 3.5-5.1 [facility] Comment on above: Order Comment: 'TROP ' Serial specimen #1, #2 or #3: 1 Performed By: #### L 500.2500, L300.3900, L300.4310, L100.0100, L501.4020 ####[facility] [address] [place], [address] Sodium [Moles/Vol] 139 mmol/L Normal 136-145 [facility] Comment on above: Order Comment: 'TROP ' Serial specimen #1, #2 or #3: 1 Performed By: #### L 500.2500, L300.3900, L300.4310, L100.0100, L501.4020 ####[facility] [address] [place], [address] Urea nitrogen [Mass/Vol] 37 mg/dL High 7-18 [facility] Comment on above: Order Comment: 'TROP ' Serial specimen #1, #2 or #3: 1 Performed By: #### L 500.2500, L300.3900, L300.4310, L100.0100, L501.4020 ####[facility] [address] [place], [address] Basophil percentageOrdered B y: Radha Khan on 04-24-2024 Basophils/100 WBC (Bld) 0.4 % 0-1 [facility] CBC W/Diff, Automatedon 04-02 Anisocytosis Ql (Bld) 1+ Normal [facility] Comment on above: Performed By: #### L 100.0100, L100.9950, L503.6550, L503.0105, L503.6030 ####[facility] [address] [place], [address] HYPOCHROMASIA 1+ Normal [facility] Comment on above: Performed By: #### L 100.0100, L100.9950, L503.6550, L503.0105, L503.6030 ####[facility] [address] [place], [address] MICROCYTIC 1+ Normal [facility] Comment on above: Performed By: #### L 100.0100, L100.9950, L503.6550, L503.0105, L503.6030 ####[facility] [address] [place], [address] OVALOCYTE 1+ Normal [facility] Comment on above: Performed By: #### L 100.0100, L100.9950, L503.6550, L503.0105, L503.6030 ####[facility] [address] [place], [address] PLT EST ADEQUATE Normal ADEQ [facility] Comment on above: Performed By: #### L 100.0100, L100.9950, L503.6550, L503.0105, L503.6030 ####[facility] [address] [place], [address] RED CELL MORPH N CHROM Normal NORM C C [facility] Comment on above: Performed By: #### L 100.0100, L100.9950, L503.6550, L503.0105, L503.6030 ####[facility] [address] [place], [address] Anisocytosis Ql (Bld) 1+ Normal [facility] Comment on above: Performed By: #### L 500.2500, L300.3900, L300.4310, L100.0100, L501.4020 ####[facility] [address] [place], [address] HYPOCHROMASIA 1+ Normal [facility] Comment on above: Performed By: #### L 500.2500, L300.3900, L300.4310, L100.0100, L501.4020 ####[facility] [address] [place], [address] MICROCYTIC 1+ Normal [facility] Comment on above: Performed By: #### L 500.2500, L300.3900, L300.4310, L100.0100, L501.4020 ####[facility] [address] [place], [address] OVALOCYTE 1+ Normal [facility] Comment on above: Performed By: #### L 500.2500, L300.3900, L300.4310, L100.0100, L501.4020 ####[facility] [address] [place], [address] PLT EST ADEQUATE Normal ADEQ [facility] Comment on above: Performed By: #### L 500.2500, L300.3900, L300.4310, L100.0100, L501.4020 ####[facility] [address] [place], [address] RED CELL MORPH N CHROM Normal NORM C C [facility] Comment on above: Performed By: #### L 500.2500, L300.3900, L300.4310, L100.0100, L501.4020 ####[facility] [address] [place], [address] Chest 1 Viewon 04-24-2024 Chest 1 View Normal [facility] Emergency Department Summary on 04-24-2024 Emergency Department Summary Normal [facility] Eosinophil percentageOrdered By: Radha Khan on 04-24-2024 Eosinophils/100 WBC (Bld) 2.6 % 0-5 [facility] Erythrocyte distribution wid th ratioOrdered By: Radha Khan on 04-24-2024 Erythrocyte distribution width (RBC) [Ratio] 20.5 % High 11.6-14.6 [facility] Erythrocyte distribution wid th standard deviationOrdered By: Radha Khan on 04-24-2024 Erythrocyte distribution width (RBC) [Ratio] 56.2 fl High 35.1-43.9 [facility] Erythrocyte morphology asses smentOrdered By: Daniel Mcneil on 04-24-2024 RBC morphology finding Nom (Bld) N CHROM NORMAL NORM C&C [facility] Erythrocyte morphology asses smentOrdered By: Radha Khan on 04-24-2024 RBC morphology finding Nom (Bld) N CHROM NORMAL NORM C&C [facility] Ferritinon 04-24-2024 Ferritin [Mass/Vol] 102 ng/mL Normal 26-388 [facility] Comment on above: Performed By: #### L 100.0100, L100.9950, L503.6550, L503.0105, L503.6030 ####[facility] [address] [place], [place], [id number] H AND P Exam - Hospitaliston 04-24-2024 H&P Exam - Hospitalist Normal [facility] Hematocrit Auto (Bld) [Volum e fraction]Ordered By: Radha Khan on 04-24-2024 Hematocrit (Bld) [Volume fraction] 33.0 % Low 40-54 [facility] Hemoglobin measurementOrdere d By: Radha Khan on 04-24-2024 Hemoglobin (Bld) [Mass/Vol] 9.0 g/dL Low 13.0-16.5 [facility] Hypochromatic red blood cell detectionOrdered By: Daniel Mcneil on 04-24-2024 Hypochromia Ql (Bld) 1+ [facility] Hypochromatic red blood cell detectionOrdered By: Radha Khan on 04-24-2024 Hypochromia Ql (Bld) 1+ [facility] Immature granulocytes/100 WB C Auto (Bld)Ordered By: Radha Khan on 04-24-2024 Immature granulocytes/100 WBC (Bld) 0.700 % 0.0-0.9 [facility] Iron measurement (mass/mass) Ordered By: Radha Khan on 04-24-2024 Iron (Unsp spec) [Mass/Mass] 64 ug/dL Low 65-175 [facility] Iron+Iron Binding Capacityon 04-24-2024 Iron [Mass/Vol] 64 ug/dL Low 65-175 [facility] Comment on above: Performed By: #### L 100.0100, L100.9950, L503.6550, L503.0105, L503.6030 ####[facility] [address] [place], [address] IRON SATURATION 22.8 Normal 15.0-55.0 [facility] Comment on above: Performed By: #### L 100.0100, L100.9950, L503.6550, L503.0105, L503.6030 ####[facility] [address] [place], [address] TIBC 281 ug/dL Normal 250-450 [facility] Comment on above: Performed By: #### L 100.0100, L100.9950, L503.6550, L503.0105, L503.6030 ####[facility] [address] [place], [address] L501.4020on 04-24-2024 TROPONIN-I HS 106 pg/mL High 3.0-78.0 [facility] Comment on above: Order Comment: 'TROP ' Serial specimen #1, #2 or #3: 1 Result Comment: Kodi monterroso Note: New Test Units and Gender Specific Reference Ranges. For more information see Policy Stat Procedure [place] High Sensitivity Troponin (TNIH) and attachments. Performed By: #### L 501.4020 ####[facility] [address] [place], [address] TROPONIN-I HS 190 pg/mL Invalid Interpretation Code 3.0-78.0 [facility] Comment on above: Order Comment: 'TROP ' Serial specimen #1, #2 or #3: 1 Result Comment: Samuelt ical Result(s) Called at: 16:51:09 04/24/2024 by: SHERYL. Results read back by Stan RAMIREZ Please Note: New Test Units and Gender Specific Reference Ranges. For more information see Policy Stat Procedure [place] High Sensitivity Troponin (TNIH) and attachments. Performed By: #### L 500.2500, L300.3900, L300.4310, L100.0100, L501.4020 ####[facility] [address] [place], [place], [id number] MCV (mean corpuscular volume ) determinationOrdered By: Radha Khan on 04-24-2024 MCV (RBC) [Entitic vol] 77.6 fL Low 80-94 [facility] Magnesiumon 04-24-2024 Magnesium [Mass/Vol] 2.1 mg/dL Normal 1.6-2.6 [facility] Comment on above: Order Comment: Comme nts: may add to ED labs Performed By: #### L 501.5200 ####[facility] [address] [place], [place], [id number] Magnesium measurementOrdered By: Cookie Bell on 04-24-2024 Magnesium [Mass/Vol] 2.1 mg/dL 1.6-2.6 [facility] Mean corpuscular hemoglobin (MCH) determinationOrdered By: Radha Khan on 04-24-2024 MCH (RBC) [Entitic mass] 21.2 pg Low 27.0-32.0 [facility] Monocyte percentageOrdered B y: Radha Khan on 04-24-2024 Monocytes/100 WBC (Bld) 10.2 % High 0-10 [facility] Neutrophil percentageOrdered By: Radha Khan on 04-24-2024 Neutrophils/100 WBC (Bld) 71.7 % High 47-70 [facility] No Panel InformationOrdered By: Daniel Mcneil on 04-24-2024 1+ [facility] No Panel InformationOrdered By: Radha Khan on 04-24-2024+ [facility] Ovalocyte detectionOrdered B y: Daniel Mcneil on 04-24-2024 Ovalocytes LM Ql (Bld) 1+ [facility] Ovalocyte detectionOrdered B y: Radha Khan on 04-24-2024 Ovalocytes LM Ql (Bld) 1+ [facility] Partial Thromboplast Timeon 04-24-2024 aPTT Coag (Bld) [Time] 24.8 s Normal 24.1-36.2 [facility] Comment on above: Performed By: #### L 500.2500, L300.3900, L300.4310, L100.0100, L501.4020 ####[facility] [address] [place], [address] Platelet countOrdered By: Armen Khan on 04-24-2024 Platelets (Bld) [#/Vol] 361 10*3/uL 150-450 [facility] Platelet estimateOrdered By: Daniel Mcneil on 04-24-2024 Platelets LM Ql (Bld) [facility] Platelet estimateOrdered By: Radha Khan on 04-24-2024 Platelets LM Ql (Bld) [facility]QUATE [facility] Prothrombin Time w/INRon INR Coag (PPP) [Relative time] 1.1 {INR} Normal [facility] Comment on above: Performed By: #### L 500.2500, L300.3900, L300.4310, L100.0100, L501.4020 ####[facility] [address] [place], [address] PT Coag (PPP) [Time] 14.4 s Normal 11.7-14.9 [facility] Comment on above: Performed By: #### L 500.2500, L300.3900, L300.4310, L100.0100, L501.4020 ####[facility] [address] [place], [address] Prothrombin timeOrdered By: Daniel Mcneil on 04-24-2024 PT Coag (PPP) [Time] 14.4 s 11.7-14.9 [facility] RBC Auto (Bld) [#/Vol]Ordere d By: Radha Khan on 04-24-2024 RBC (Bld) [#/Vol] 4.25 10*6/uL Low 4.6-6.2 [facility] Retic Panelon 04-24-2024 IM RET FRACTION 18.00 High 3.00-15.90 [facility] Comment on above: Performed By: #### L 100.0100, L100.9950, L503.6550, L503.0105, L503.6030 ####[facility] [address] [place], [address] RET-HE 26.3 pg Low 30-35 [facility] Comment on above: Performed By: #### L 100.0100, L100.9950, L503.6550, L503.0105, L503.6030 ####[facility] [address] [place], [place], [phone] Retic Count 1.99 High 0.5-1.5 [facility] Comment on above: Performed By: #### L 100.0100, L100.9950, L503.6550, L503.0105, L503.6030 ####[facility] [address] [place], [address] Reticulocyte hemoglobin equi valent (RET-He) measurementOrdered By: Radha Khan on 04-24-2024 Hemoglobin (Reticulocytes) [Entitic mass] 26.3 pg Low 30-35 [facility] Reticulocytes Auto (Bld) [#/ Vol]Ordered By: Radha Khan on 04-24-2024 Reticulocytes/100 RBC (Bld) 1.99 % High 0.5-1.5 [facility] STROKE Brain/Head without Co nton 04-24-2024 STROKE Brain/Head without Cont Normal [facility] STROKE CTA Head AND Neck W/C onon 04-24-2024 STROKE CTA Head AND Neck W/Con Normal [facility] Serum or plasma iron saturat ion measurement (mass fraction)Ordered By: Radha Khan on 04-24-2024 Iron saturation [Mass fraction] 22.8 % 15.0-55.0 [facility] Vitamin B12 measurementOrder ed By: Radha Khan on 04-24-2024 Cobalamin (Vitamin B12) [Mass/Vol] 572 pg/mL 211-911 [facility] White blood cell (WBC) count Ordered By: Radha Khan on 04-24-2024 WBC (Bld) [#/Vol] 14.1 10*3/uL High 4.4-11.0 [facility] 36on 04-22-2024 36 LVM to let patient k now he is scheduled for surgery and to call back to go over presurgical instructions Normal [facility] 36 Call ref# [id number] 000. No Prior authorization needed for inpatient 24 hour observation. Normal [facility] Pulmonary Visit Reporton Pulmonary Visit Report Normal [facility] Culture, Blood (WB)on 2024 CUB Blood cultures x2, f rom two different sites No growth in 5 days. Normal [facility] Comment on above: Performed By: #### M 200.1000, M100.636 ####[facility] [address] [place], [place], [phone] Endocrinology Visit Reporton 04-16-2024 Endocrinology Visit Report Normal [facility] No Panel Informationon 04-16 7.7 % High 4.2-6.3 [facility] Absolute lymphocyte countOrd ered By: Cuco Soler on 04-15-2024 Lymphocytes Auto (Unsp spec) [#/Vol] 0.77 10*3/uL Low 0.83-4.51 [facility] Automated lymphocyte count a s percentage of total leukocytesOrdered By: Cuco Soler on 04-15-2024 Lymphocytes/100 WBC Auto (Unsp spec) 7.0 % Low 19-41 [facility] Basic Metabolic Profile (BMP )on 04-15-2024 BUN/CRE 29.8 RATIO High 10-20 [facility] Comment on above: Performed By: #### L 100.0100, L500.2500 ####[facility] [address] [place], [place], [id number] CA,Total 9.4 mg/dL Normal 8.5-10.1 [facility] Comment on above: Performed By: #### L 100.0100, L500.2500 ####[facility] [address] [place], [address] Chloride [Moles/Vol] 103 mmol/L Normal 98-107 [facility] Comment on above: Performed By: #### L 100.0100, L500.2500 ####[facility] [address] [place], [address] CO2 [Moles/Vol] 24.0 mmol/L Normal 21.0-32.0 [facility] Comment on above: Performed By: #### L 100.0100, L500.2500 ####[facility] [address] [place], [address] Creatinine [Mass/Vol] 1.14 mg/dL Normal 0.70-1.30 [facility] Comment on above: Result Comment: The validity of the calculated GFR GFRAA in patients over70 years has not been determined. Clinical correlation isessential. Performed By: #### L 100.0100, L500.2500 ####[facility] [address] [place], [address] ECRCL 94.72 ml/min Normal [facility] Comment on above: Performed By: #### L 100.0100, L500.2500 ####[facility] [address] [place], [address] EST GFR - AA 84 mL/min Normal >60 [facility] Comment on above: Result Comment: Afri can [place] GFR Calc Performed By: #### L 100.0100, L500.2500 ####[facility] [address] [place], [address] GAP 8 Normal 5-15 [facility] Comment on above: Performed By: #### L 100.0100, L500.2500 ####[facility] [address] [place], [address] GFR/1.73 sq M.predicted among non-blacks MDRD (S/P/Bld) [Vol rate/Area] 70 mL/min/{1.73_m2} Normal >60 [facility] Comment on above: Result Comment: Non- GFR Calc Performed By: #### L 100.0100, L500.2500 ####[facility] [address] [place], [address] Glucose [Mass/Vol] 154 mg/dL High 74-106 [facility] Comment on above: Result Comment: Fast ing Glucose result greater than or equal to 126 mg/dLsuggests DIABETES MELLITUS per A.D.A. criteria. Performed By: #### L 100.0100, L500.2500 ####[facility] [address] [place], [address] Potassium [Moles/Vol] 4.4 mmol/L Normal 3.5-5.1 [facility] Comment on above: Performed By: #### L 100.0100, L500.2500 ####[facility] [address] [place], [address] Sodium [Moles/Vol] 135 mmol/L Low 136-145 [facility] Comment on above: Performed By: #### L 100.0100, L500.2500 ####[facility] [address] [place], [address] Urea nitrogen [Mass/Vol] 34 mg/dL High 7-18 [facility] Comment on above: Performed By: #### L 100.0100, L500.2500 ####[facility] [address] [place], [address] Basophil percentageOrdered B y: Cuco Soler on 04-15-2024 Basophils/100 WBC (Bld) 0.1 % 0-1 [facility] CBC W/Diff, Automatedon 04-01 Absolute Lymph 0.77 X10 3/uL Low 0.83-4.51 [facility] Comment on above: Performed By: #### L 100.0100, L500.2500 ####[facility] [address] [place], [address] Absolute Neut 9.9 X10 3/uL High 2.0-7.7 [facility] Comment on above: Performed By: #### L 100.0100, L500.2500 ####[facility] [address] [place], [address] Basophils/100 WBC (Bld) 0.1 % Normal 0-1 [facility] Comment on above: Performed By: #### L 100.0100, L500.2500 ####[facility] [address] [place], [address] Eosinophils/100 WBC (Bld) 0.1 % Normal 0-5 [facility] Comment on above: Performed By: #### L 100.0100, L500.2500 ####[facility] [address] [place], [address] Erythrocyte distribution width (RBC) [Ratio] 19.6 % High 11.6-14.6 [facility] Comment on above: Performed By: #### L 100.0100, L500.2500 ####[facility] [address] [place], [address] Hematocrit (Bld) [Volume fraction] 28.9 % Low 40-54 [facility] Comment on above: Performed By: #### L 100.0100, L500.2500 ####[facility] [address] [place], [address] Hemoglobin (Bld) [Mass/Vol] 8.5 g/dL Low 13.0-16.5 [facility] Comment on above: Performed By: #### L 100.0100, L500.2500 ####[facility] [address] [place], [address] IG% 0.600 Normal 0.0-0.9 [facility] Comment on above: Result Comment: IG% - Immature Granulocytes (promyelocytes, myelocytes andmetamyelocytes) > 1% indicates that a LEFT SHIFT is Present. Performed By: #### L 100.0100, L500.2500 ####[facility] [address] [place], [address] Lymphocytes/100 WBC (Bld) 7.0 % Low 19-41 [facility] Comment on above: Performed By: #### L 100.0100, L500.2500 ####[facility] [address] [place], [address] MCH (RBC) [Entitic mass] 21.8 pg Low 27.0-32.0 [facility] Comment on above: Performed By: #### L 100.0100, L500.2500 ####[facility] [address] [place], [address] MCHC (RBC) [Mass/Vol] 29.4 g/dL Low 32-36 [facility] Comment on above: Performed By: #### L 100.0100, L500.2500 ####[facility] [address] [place], [address] MCV (RBC) [Entitic vol] 74.1 fL Low 80-94 [facility] Comment on above: Performed By: #### L 100.0100, L500.2500 ####[facility] [address] [place], [address] Monocytes/100 WBC (Bld) 2.4 % Normal 0-10 [facility] Comment on above: Performed By: #### L 100.0100, L500.2500 ####[facility] [address] [place], [address] Neutrophils/100 WBC (Bld) 89.8 % High 47-70 [facility] Comment on above: Performed By: #### L 100.0100, L500.2500 ####[facility] [address] [place], [address] Nucleated RBC (Bld) [#/Vol] 0 10*3/uL Normal 0-5 [facility] Comment on above: Performed By: #### L 100.0100, L500.2500 ####[facility] [address] [place], [address] Platelet mean volume (Bld) [Entitic vol] 9.8 fL Normal 6.2-12.0 [facility] Comment on above: Performed By: #### L 100.0100, L500.2500 ####[facility] [address] [place], [address] Platelets (Bld) [#/Vol] 341 10*3/uL Normal 150-450 [facility] Comment on above: Performed By: #### L 100.0100, L500.2500 ####[facility] [address] [place], [address] RBC (Bld) [#/Vol] 3.90 10*6/uL Low 4.6-6.2 [facility] Comment on above: Performed By: #### L 100.0100, L500.2500 ####[facility] [address] [place], [address] RDW SD 52.3 fl High 35.1-43.9 [facility] Comment on above: Performed By: #### L 100.0100, L500.2500 ####[facility] [address] [place], [address] WBC (Bld) [#/Vol] 11.0 10*3/uL Normal 4.4-11.0 [facility] Comment on above: Performed By: #### L 100.0100, L500.2500 ####[facility] [address] [place], [address] Carbon dioxide measurementOr dered By: Cuco Soler on 04-15-2024 CO2 [Moles/Vol] 24.0 mmol/L 21.0-32.0 [facility] Chloride measurementOrdered By: Cuco Soler on 04-15-2024 Chloride [Moles/Vol] 103 mmol/L 98-107 [facility] Discharge Instructionon 04-01 Discharge Instruction Normal [facility] Eosinophil percentageOrdered By: Cuco Soler on 04-15-2024 Eosinophils/100 WBC (Bld) 0.1 % 0-5 [facility] Erythrocyte distribution wid th ratioOrdered By: Cuco Soler on 04-15-2024 Erythrocyte distribution width (RBC) [Ratio] 19.6 % High 11.6-14.6 [facility] Erythrocyte distribution wid th standard deviationOrdered By: Cuco Soler on 04-15-2024 Erythrocyte distribution width (RBC) [Ratio] 52.3 fl High 35.1-43.9 [facility] Glomerular filtration rate ( GFR) estimationOrdered By: Cuco Soler on 04-15-2024 GFR/1.73 sq M.predicted among non-blacks MDRD (S/P/Bld) [Vol rate/Area] 70 mL/min/{1.73_m2} >60 [facility] Glucose measurementOrdered B y: Cuco Soler on 04-15-2024 Glucose [Mass/Vol] 154 mg/dL High 74-106 [facility] Hematocrit Auto (Bld) [Volum e fraction]Ordered By: Cuco Soler on 04-15-2024 Hematocrit (Bld) [Volume fraction] 28.9 % Low 40-54 [facility] Hemoglobin measurementOrdere d By: Cuco Soler on 04-15-2024 Hemoglobin (Bld) [Mass/Vol] 8.5 g/dL Low 13.0-16.5 [facility] Immature granulocytes/100 WB C Auto (Bld)Ordered By: Cuco Soler on 04-15-2024 Immature granulocytes/100 WBC (Bld) 0.600 % 0.0-0.9 [facility] MCV (mean corpuscular volume ) determinationOrdered By: Cuco Soler on 04-15-2024 MCV (RBC) [Entitic vol] 74.1 fL Low 80-94 [facility] Mean corpuscular hemoglobin (MCH) determinationOrdered By: Cuco Soler on 04-15-2024 MCH (RBC) [Entitic mass] 21.8 pg Low 27.0-32.0 [facility] Monocyte percentageOrdered B y: Cuco Soler on 04-15-2024 Monocytes/100 WBC (Bld) 2.4 % 0-10 [facility] Neutrophil percentageOrdered By: Cuco Soler on 04-15-2024 Neutrophils/100 WBC (Bld) 89.8 % High 47-70 [facility] Platelet countOrdered By: Joselito Soler on 04-15-2024 Platelets (Bld) [#/Vol] 341 10*3/uL 150-450 [facility] Potassium measurementOrdered By: Cuco Soler on 04-15-2024 Potassium [Moles/Vol] 4.4 mmol/L 3.5-5.1 [facility] RBC Auto (Bld) [#/Vol]Ordere d By: Cuco Soler on 04-15-2024 RBC (Bld) [#/Vol] 3.90 10*6/uL Low 4.6-6.2 [facility] Serum or plasma calcium grazyna urement (mass/volume)Ordered By: Cuco Soler on 04-15-2024 Calcium [Mass/Vol] 9.4 mg/dL 8.5-10.1 [facility] Serum or plasma creatinine m easurement (mass/volume)Ordered By: Cuco Soler on 04-15-2024 Creatinine [Mass/Vol] 1.14 mg/dL 0.70-1.30 [facility] Serum or plasma urea nitroge n measurement (mass/volume)Ordered By: Cuco Soler on 04-15-2024 Urea nitrogen [Mass/Vol] 34 mg/dL High 7-18 [facility] Sodium levelOrdered By: Caitie Soler on 04-15-2024 Sodium [Moles/Vol] 135 mmol/L Low 136-145 [facility] White blood cell (WBC) count Ordered By: Cuco Soler on 04-15-2024 WBC (Bld) [#/Vol] 11.0 10*3/uL 4.4-11.0 [facility] GPC IDon 04-14-2024 GPC ID Normal [facility] Comment on above: Performed By: #### M 200.1000, M100.636 ####[facility] [address] [place], [address] Basic Metabolic Profile (BMP )on 04-14-2024 BUN/CRE 20.1 RATIO High 10-20 [facility] Comment on above: Performed By: #### L 100.0100, L501.5200, L500.2500, L500.3400, L501.2300 ####[facility] [address] [place], [address] CA,Total 9.0 mg/dL Normal 8.5-10.1 [facility] Comment on above: Performed By: #### L 100.0100, L501.5200, L500.2500, L500.3400, L501.2300 ####[facility] [address] [place], [address] Chloride [Moles/Vol] 100 mmol/L Normal 98-107 [facility] Comment on above: Performed By: #### L 100.0100, L501.5200, L500.2500, L500.3400, L501.2300 ####[facility] [address] [place], [address] CO2 [Moles/Vol] 26.0 mmol/L Normal 21.0-32.0 [facility] Comment on above: Performed By: #### L 100.0100, L501.5200, L500.2500, L500.3400, L501.2300 ####[facility] [address] [place], [address] Creatinine [Mass/Vol] 1.49 mg/dL High 0.70-1.30 [facility] Comment on above: Result Comment: The validity of the calculated GFR GFRAA in patients over70 years has not been determined. Clinical correlation isessential. Performed By: #### L 100.0100, L501.5200, L500.2500, L500.3400, L501.2300 ####[facility] [address] [place], [address] ECRCL 73.51 ml/min Normal [facility] Comment on above: Performed By: #### L 100.0100, L501.5200, L500.2500, L500.3400, L501.2300 ####[facility] [address] [place], [address] EST GFR - AA 62 mL/min Normal >60 [facility] Comment on above: Result Comment: Afri can [place] GFR Calc Performed By: #### L 100.0100, L501.5200, L500.2500, L500.3400, L501.2300 ####[facility] [address] [place], [address] GAP 6 Normal 5-15 [facility] Comment on above: Performed By: #### L 100.0100, L501.5200, L500.2500, L500.3400, L501.2300 ####[facility] [address] [place], [address] GFR/1.73 sq M.predicted among non-blacks MDRD (S/P/Bld) [Vol rate/Area] 51 mL/min/{1.73_m2} Low >60 [facility] Comment on above: Result Comment: Non- GFR Calc Performed By: #### L 100.0100, L501.5200, L500.2500, L500.3400, L501.2300 ####[facility] [address] [place], [address] Glucose [Mass/Vol] 272 mg/dL High 74-106 [facility] Comment on above: Result Comment: Gluc ose result greater than or equal to 200 mg/dLsuggests DIABETES MELLITUS per A.D.A. criteria. Performed By: #### L 100.0100, L501.5200, L500.2500, L500.3400, L501.2300 ####[facility] [address] [place], [address] Potassium [Moles/Vol] 4.0 mmol/L Normal 3.5-5.1 [facility] Comment on above: Performed By: #### L 100.0100, L501.5200, L500.2500, L500.3400, L501.2300 ####[facility] [address] [place], [address] Sodium [Moles/Vol] 132 mmol/L Low 136-145 [facility] Comment on above: Performed By: #### L 100.0100, L501.5200, L500.2500, L500.3400, L501.2300 ####[facility] [address] [place], [address] Urea nitrogen [Mass/Vol] 30 mg/dL High 7-18 [facility] Comment on above: Performed By: #### L 100.0100, L501.5200, L500.2500, L500.3400, L501.2300 ####[facility] [address] [place], [address] Bedside Glucoseon 04-14-2024 FINGERSTICK GLU 259 mg/dL High 74-106 [facility] Comment on above: Result Comment: ANI OMARENT OF PATIENT CARE PER NURSING PROTOCOL Performed By: #### L 501.080 ####[facility] [address] [place], [address] Bilirubin directOrdered By: Cuco Soler on 04-14-2024 Bilirubin.direct [Mass/Vol] 0.20 mg/dL 0.00-0.30 [facility] Bilirubin, totalOrdered By: Cuco Soler on 04-14-2024 Bilirubin [Mass/Vol] 0.80 mg/dL 0.20-1.00 [facility] CBC W/Diff, Automatedon - Absolute Lymph 0.42 X10 3/uL Low 0.83-4.51 [facility] Comment on above: Performed By: #### L 100.0100, L501.5200, L500.2500, L500.3400, L501.2300 ####[facility] [address] [place], [address] Absolute Neut 7.9 X10 3/uL High 2.0-7.7 [facility] Comment on above: Performed By: #### L 100.0100, L501.5200, L500.2500, L500.3400, L501.2300 ####[facility] [address] [place], [address] Basophils/100 WBC (Bld) 0.2 % Normal 0-1 [facility] Comment on above: Performed By: #### L 100.0100, L501.5200, L500.2500, L500.3400, L501.2300 ####[facility] [address] [place], [address] Eosinophils/100 WBC (Bld) 0.0 % Normal 0-5 [facility] Comment on above: Performed By: #### L 100.0100, L501.5200, L500.2500, L500.3400, L501.2300 ####[facility] [address] [place], [address] Erythrocyte distribution width (RBC) [Ratio] 19.9 % High 11.6-14.6 [facility] Comment on above: Performed By: #### L 100.0100, L501.5200, L500.2500, L500.3400, L501.2300 ####[facility] [address] [place], [address] Hematocrit (Bld) [Volume fraction] 28.7 % Low 40-54 [facility] Comment on above: Performed By: #### L 100.0100, L501.5200, L500.2500, L500.3400, L501.2300 ####[facility] [address] [place], [address] Hemoglobin (Bld) [Mass/Vol] 8.4 g/dL Low 13.0-16.5 [facility] Comment on above: Performed By: #### L 100.0100, L501.5200, L500.2500, L500.3400, L501.2300 ####[facility] [address] [place], [address] IG% 0.500 Normal 0.0-0.9 [facility] Comment on above: Result Comment: IG% - Immature Granulocytes (promyelocytes, myelocytes andmetamyelocytes) > 1% indicates that a LEFT SHIFT is Present. Performed By: #### L 100.0100, L501.5200, L500.2500, L500.3400, L501.2300 ####[facility] [address] [place], [address] Lymphocytes/100 WBC (Bld) 4.9 % Low 19-41 [facility] Comment on above: Performed By: #### L 100.0100, L501.5200, L500.2500, L500.3400, L501.2300 ####[facility] [address] [place], [address] MCH (RBC) [Entitic mass] 21.8 pg Low 27.0-32.0 [facility] Comment on above: Performed By: #### L 100.0100, L501.5200, L500.2500, L500.3400, L501.2300 ####[facility] [address] [place], [address] MCHC (RBC) [Mass/Vol] 29.3 g/dL Low 32-36 [facility] Comment on above: Performed By: #### L 100.0100, L501.5200, L500.2500, L500.3400, L501.2300 ####[facility] [address] [place], [address] MCV (RBC) [Entitic vol] 74.4 fL Low 80-94 [facility] Comment on above: Performed By: #### L 100.0100, L501.5200, L500.2500, L500.3400, L501.2300 ####[facility] [address] [place], [address] Monocytes/100 WBC (Bld) 1.9 % Normal 0-10 [facility] Comment on above: Performed By: #### L 100.0100, L501.5200, L500.2500, L500.3400, L501.2300 ####[facility] [address] [place], [address] Neutrophils/100 WBC (Bld) 92.5 % High 47-70 [facility] Comment on above: Performed By: #### L 100.0100, L501.5200, L500.2500, L500.3400, L501.2300 ####[facility] [address] [place], [address] Nucleated RBC (Bld) [#/Vol] 0.2 10*3/uL Normal 0-5 [facility] Comment on above: Performed By: #### L 100.0100, L501.5200, L500.2500, L500.3400, L501.2300 ####[facility] [address] [place], [address] Platelet mean volume (Bld) [Entitic vol] 10.0 fL Normal 6.2-12.0 [facility] Comment on above: Performed By: #### L 100.0100, L501.5200, L500.2500, L500.3400, L501.2300 ####[facility] [address] [place], [address] Platelets (Bld) [#/Vol] 322 10*3/uL Normal 150-450 [facility] Comment on above: Performed By: #### L 100.0100, L501.5200, L500.2500, L500.3400, L501.2300 ####[facility] [address] [place], [address] RBC (Bld) [#/Vol] 3.86 10*6/uL Low 4.6-6.2 [facility] Comment on above: Performed By: #### L 100.0100, L501.5200, L500.2500, L500.3400, L501.2300 ####[facility] [address] [place], [address] RDW SD 53.1 fl High 35.1-43.9 [facility] Comment on above: Performed By: #### L 100.0100, L501.5200, L500.2500, L500.3400, L501.2300 ####[facility] [address] [place], [address] WBC (Bld) [#/Vol] 8.6 10*3/uL Normal 4.4-11.0 [facility] Comment on above: Performed By: #### L 100.0100, L501.5200, L500.2500, L500.3400, L501.2300 ####[facility] [address] [place], [address] Consultation - Intensiviston 04-14-2024 Consultation - Supervisor Last Model Department Normal [facility] Echo, Limited Studyon 2024 Echo, Limited Study Normal [facility] Gl[facility] at [facility] deOrdered By: Cuco Soler on 04-14-2024 Glucose [Mass/Vol] 259 mg/dL High 74-106 [facility] Liver Profileon 04-14-2024 Albumin [Mass/Vol] 2.7 g/dL Low 3.2-5.0 [facility] Comment on above: Performed By: #### L 100.0100, L501.5200, L500.2500, L500.3400, L501.2300 ####[facility] [address] [place], [address] ALK P 77 U/L Normal 45-117 [facility] Comment on above: Performed By: #### L 100.0100, L501.5200, L500.2500, L500.3400, L501.2300 ####[facility] [address] [place], [address] ALT [Catalytic activity/Vol] 19 U/L Normal 16-61 [facility] Comment on above: Performed By: #### L 100.0100, L501.5200, L500.2500, L500.3400, L501.2300 ####[facility] [address] [place], [address] AST [Catalytic activity/Vol] 16 U/L Normal 15-37 [facility] Comment on above: Performed By: #### L 100.0100, L501.5200, L500.2500, L500.3400, L501.2300 ####[facility] [address] [place], [address] Bilirubin [Mass/Vol] 0.80 mg/dL Normal 0.20-1.00 [facility] Comment on above: Result Comment: For patients on eltrombopag therapy, use of Dimension [place] TBIL is not recommended. Performed By: #### L 100.0100, L501.5200, L500.2500, L500.3400, L501.2300 ####[facility] [address] [place], [address] Bilirubin.direct [Mass/Vol] 0.20 mg/dL Normal 0.00-0.30 [facility] Comment on above: Performed By: #### L 100.0100, L501.5200, L500.2500, L500.3400, L501.2300 ####[facility] [address] [place], [address] Globulin (S) [Mass/Vol] 5.6 g/dL High 2.2-4.2 [facility] Comment on above: Performed By: #### L 100.0100, L501.5200, L500.2500, L500.3400, L501.2300 ####[facility] [address] [place], [address] T PROT 8.3 g/dL High 6.4-8.2 [facility] Comment on above: Performed By: #### L 100.0100, L501.5200, L500.2500, L500.3400, L501.2300 ####[facility] [address] [place], [address] M8200.1000on 04-14-2024 M8200.1000 Normal Reference Ran ge = Negative MRSA DNA Nose Ql FLORES+probe GeneXpert Instrument, PCR method MRSA PCR MRSA NEGATIVE Normal [facility] Comment on above: Performed By: #### M 8200.1000, M300.4600 ####[facility] [address] [place], [address] Magnesiumon 04-14-2024 Magnesium [Mass/Vol] 2.5 mg/dL Normal 1.6-2.6 [facility] Comment on above: Performed By: #### L 100.0100, L501.5200, L500.2500, L500.3400, L501.2300 ####[facility] [address] [place], [address] Magnesium measurementOrdered By: Cuco Soler on 04-14-2024 Magnesium [Mass/Vol] 2.5 mg/dL 1.6-2.6 [facility] Nasal methicillin resistant Staphylococcus aureus (MRSA) DNA detection by PCROrdered By: Cuco Soler on 04-14-2024 MRSA DNA FLORES+probe Ql (Nose) [facility] No Panel InformationOrdered By: Cucogemini Soler on 04-14-2024 16 U/L 15-37 [facility] Phosphoruson 04-14-2024 Phosphate [Mass/Vol] 4.4 mg/dL Normal 2.5-4.9 [facility] Comment on above: Performed By: #### L 100.0100, L501.5200, L500.2500, L500.3400, L501.2300 ####[facility] [address] [place], [place], [id number] Procalcitoninon 04-14-2024 Procalcitonin 0.18 ng/mL High 0.00-0.09 [facility] Comment on above: Result Comment: A [...] are obtained. Performed By: #### L 509.7000 ####[facility] [address] [facility] [place], [address] Serum globulin measurementOr dered By: Cuco Soler on 04-14-2024 Globulin (S) [Mass/Vol] 5.6 g/dL High 2.2-4.2 [facility] Serum or plasma alanine briscoe otransferase (ALT) measurementOrdered By: Cuco Soler on 04-14-2024 ALT [Catalytic activity/Vol] 19 U/L 16-61 [facility] Serum or plasma albumin grazyna urement (mass/volume)Ordered By: Cuco Soler on 04-14-2024 Albumin [Mass/Vol] 2.7 g/dL Low 3.2-5.0 [facility] Serum or plasma alkaline benjamin sphatase measurementOrdered By: Cuco Soler on 04-14-2024 ALP [Catalytic activity/Vol] 77 U/L 45-117 [facility] Serum procalcitonin measurem entOrdered By: Fran Rodriguez on 04-14-2024 Procalcitonin [Mass/Vol] 0.18 ng/mL High 0.00-0.09 [facility] Strep pneumoniae Antig(UR,CS F)on 04-14-2024 STPAG Normal [facility] Comment on above: Performed By: #### M 8200.1000, M300.4600 ####[facility] [address] [place], [address] Total proteinOrdered By: Wilder Soler on 04-14-2024 Protein [Mass/Vol] 8.3 g/dL High 6.4-8.2 [facility] 6 Minute Walk Teston 025 6 Minute Walk Test Normal [facility] Basic Metabolic Profile (BMP )on 04-13-2024 BUN/CRE 17.1 RATIO Normal 10-20 [facility] Comment on above: Performed By: #### L 501.5200, L500.2500, L501.2300, L100.0100 ####[facility] [address] [place], [address] CA,Total 8.9 mg/dL Normal 8.5-10.1 [facility] Comment on above: Performed By: #### L 501.5200, L500.2500, L501.2300, L100.0100 ####[facility] [address] [place], [address] Chloride [Moles/Vol] 101 mmol/L Normal 98-107 [facility] Comment on above: Performed By: #### L 501.5200, L500.2500, L501.2300, L100.0100 ####[facility] [address] [place], [address] CO2 [Moles/Vol] 27.0 mmol/L Normal 21.0-32.0 [facility] Comment on above: Performed By: #### L 501.5200, L500.2500, L501.2300, L100.0100 ####[facility] [address] [place], [address] Creatinine [Mass/Vol] 1.17 mg/dL Normal 0.70-1.30 [facility] Comment on above: Result Comment: The validity of the calculated GFR GFRAA in patients over70 years has not been determined. Clinical correlation isessential. Performed By: #### L 501.5200, L500.2500, L501.2300, L100.0100 ####[facility] [address] [place], [address] ECRCL 93.62 ml/min Normal [facility] Comment on above: Performed By: #### L 501.5200, L500.2500, L501.2300, L100.0100 ####[facility] [address] [place], [address] EST GFR - AA 82 mL/min Normal >60 [facility] Comment on above: Result Comment: Afri can Northern [place] GFR Calc Performed By: #### L 501.5200, L500.2500, L501.2300, L100.0100 ####[facility] [address] [place], [address] GAP 6 Normal 5-15 [facility] Comment on above: Performed By: #### L 501.5200, L500.2500, L501.2300, L100.0100 ####[facility] [address] [place], [address] GFR/1.73 sq M.predicted among non-blacks MDRD (S/P/Bld) [Vol rate/Area] 67 mL/min/{1.73_m2} Normal >60 [facility] Comment on above: Result Comment: Non- GFR Calc Performed By: #### L 501.5200, L500.2500, L501.2300, L100.0100 ####[facility] [address] [place], [address] Glucose [Mass/Vol] 193 mg/dL High 74-106 [facility] Comment on above: Result Comment: Fast ing Glucose result greater than or equal to 126 mg/dLsuggests DIABETES MELLITUS per A.D.A. criteria. Performed By: #### L 501.5200, L500.2500, L501.2300, L100.0100 ####[facility] [address] [place], [address] Potassium [Moles/Vol] 3.6 mmol/L Normal 3.5-5.1 [facility] Comment on above: Performed By: #### L 501.5200, L500.2500, L501.2300, L100.0100 ####[facility] [address] [place], [address] Sodium [Moles/Vol] 134 mmol/L Low 136-145 [facility] Comment on above: Performed By: #### L 501.5200, L500.2500, L501.2300, L100.0100 ####[facility] [address] [place], [address] Urea nitrogen [Mass/Vol] 20 mg/dL High 7-18 [facility] Comment on above: Performed By: #### L 501.5200, L500.2500, L501.2300, L100.0100 ####[facility] [address] [place], [address] Bedside Glucoseon 04-13-2024 FINGERSTICK GLU 190 mg/dL High 74-106 [facility] Comment on above: Result Comment: ANI BRADFORD OF PATIENT CARE PER NURSING PROTOCOL Performed By: #### L 501.080 ####[facility] [address] [place], [address] CBC W/Diff, Automatedon 04-01 Absolute Lymph 1.53 X10 3/uL Normal 0.83-4.51 [facility] Comment on above: Performed By: #### L 501.5200, L500.2500, L501.2300, L100.0100 ####[facility] [address] [place], [address] Absolute Neut 7.3 X10 3/uL Normal 2.0-7.7 [facility] Comment on above: Performed By: #### L 501.5200, L500.2500, L501.2300, L100.0100 ####[facility] [address] [place], [address] Basophils/100 WBC (Bld) 0.5 % Normal 0-1 [facility] Comment on above: Performed By: #### L 501.5200, L500.2500, L501.2300, L100.0100 ####[facility] [address] [place], [address] Eosinophils/100 WBC (Bld) 3.7 % Normal 0-5 [facility] Comment on above: Performed By: #### L 501.5200, L500.2500, L501.2300, L100.0100 ####[facility] [address] [place], [address] Erythrocyte distribution width (RBC) [Ratio] 19.9 % High 11.6-14.6 [facility] Comment on above: Performed By: #### L 501.5200, L500.2500, L501.2300, L100.0100 ####[facility] [address] [place], [address] Hematocrit (Bld) [Volume fraction] 26.7 % Low 40-54 [facility] Comment on above: Performed By: #### L 501.5200, L500.2500, L501.2300, L100.0100 ####[facility] [address] [place], [address] Hemoglobin (Bld) [Mass/Vol] 7.7 g/dL Low 13.0-16.5 [facility] Comment on above: Performed By: #### L 501.5200, L500.2500, L501.2300, L100.0100 ####[facility] [address] [place], [address] IG% 0.300 Normal 0.0-0.9 [facility] Comment on above: Result Comment: IG% - Immature Granulocytes (promyelocytes, myelocytes andmetamyelocytes) > 1% indicates that a LEFT SHIFT is Present. Performed By: #### L 501.5200, L500.2500, L501.2300, L100.0100 ####[facility] [address] [place], [address] Lymphocytes/100 WBC (Bld) 14.9 % Low 19-41 [facility] Comment on above: Performed By: #### L 501.5200, L500.2500, L501.2300, L100.0100 ####[facility] [address] [place], [address] MCH (RBC) [Entitic mass] 21.6 pg Low 27.0-32.0 [facility] Comment on above: Performed By: #### L 501.5200, L500.2500, L501.2300, L100.0100 ####[facility] [address] [place], [address] MCHC (RBC) [Mass/Vol] 28.8 g/dL Low 32-36 [facility] Comment on above: Performed By: #### L 501.5200, L500.2500, L501.2300, L100.0100 ####[facility] [address] [place], [address] MCV (RBC) [Entitic vol] 74.8 fL Low 80-94 [facility] Comment on above: Performed By: #### L 501.5200, L500.2500, L501.2300, L100.0100 ####[facility] [address] [place], [address] Monocytes/100 WBC (Bld) 9.8 % Normal 0-10 [facility] Comment on above: Performed By: #### L 501.5200, L500.2500, L501.2300, L100.0100 ####[facility] [address] [place], [address] Neutrophils/100 WBC (Bld) 70.8 % High 47-70 [facility] Comment on above: Performed By: #### L 501.5200, L500.2500, L501.2300, L100.0100 ####[facility] [address] [place], [address] Nucleated RBC (Bld) [#/Vol] 0 10*3/uL Normal 0-5 [facility] Comment on above: Performed By: #### L 501.5200, L500.2500, L501.2300, L100.0100 ####[facility] [address] [place], [address] Platelet mean volume (Bld) [Entitic vol] 9.6 fL Normal 6.2-12.0 [facility] Comment on above: Performed By: #### L 501.5200, L500.2500, L501.2300, L100.0100 ####[facility] [address] [place], [address] Platelets (Bld) [#/Vol] 289 10*3/uL Normal 150-450 [facility] Comment on above: Performed By: #### L 501.5200, L500.2500, L501.2300, L100.0100 ####[facility] [address] [place], [address] RBC (Bld) [#/Vol] 3.57 10*6/uL Low 4.6-6.2 [facility] Comment on above: Performed By: #### L 501.5200, L500.2500, L501.2300, L100.0100 ####[facility] [address] [place], [address] RDW SD 53.8 fl High 35.1-43.9 [facility] Comment on above: Performed By: #### L 501.5200, L500.2500, L501.2300, L100.0100 ####[facility] [address] [place], [address] WBC (Bld) [#/Vol] 10.3 10*3/uL Normal 4.4-11.0 [facility] Comment on above: Performed By: #### L 501.5200, L500.2500, L501.2300, L100.0100 ####[facility] [address] [place], [address] Chest without Contraston Chest without Contrast Normal [facility] Legionella Antigen Urineon 0 04-13-2024 LEGU Normal [facility] Comment on above: Performed By: #### M 300.4500 ####[facility] [address] [place], [address] Magnesiumon 04-13-2024 Magnesium [Mass/Vol] 2.3 mg/dL Normal 1.6-2.6 [facility] Comment on above: Performed By: #### L 501.5200, L500.2500, L501.2300, L100.0100 ####[facility] [address] [place], [address] Phosphoruson 04-13-2024 Phosphate [Mass/Vol] 4.4 mg/dL Normal 2.5-4.9 [facility] Comment on above: Performed By: #### L 501.5200, L500.2500, L501.2300, L100.0100 ####[facility] [address] [place], [address] RESPIRATORY PANEL MOLECULARo n 04-13-2024 RP PANEL Normal [facility] Comment on above: Performed By: #### M 100.638 ####[facility] [address] [place], [address] Respiratory pathogens detect ion panel by molecular detection methodOrdered By: Cuco Soler on 04-13-2024 Respiratory pathogens DNA and RNA panel FLORES+probe (Resp) [facility] Urine Legionella pneumophila antigen detectionOrdered By: Cuco Soler on 04-13-2024 L. pneumophila Ag Ql (U) [facility] 12 Lead EKGon 04-12-2024 12 Lead EKG Normal [facility] BNP (brain natriuretic pepti de measurement)Ordered By: Luli Alex on 04-12-2024 Natriuretic peptide B (Bld) [Mass/Vol] 124.0 pg/mL High 0-100 [facility] BNP,B-Type NATRIURETIC PEPTI Sindy 04-12-2024 Natriuretic peptide B (Bld) [Mass/Vol] 124.0 pg/mL High 0-100 [facility] Comment on above: Performed By: #### L 503.6620, L500.2500, L100.0100 ####[facility] [address] [place], [address] Basic Metabolic Profile (BMP )on 04-12-2024 BUN/CRE 16.5 RATIO Normal 10-20 [facility] Comment on above: Order Comment: REDRA W. PREVIOUS SPECIMEN REJECTED DUE TOHEMOLYSIS. 04/12/24 1220 Sharon Sandoval.1 Performed By: #### L 500.2500, L501.4020 ####[facility] [address] [place], [address] CA,Total 9.4 mg/dL Normal 8.5-10.1 [facility] Comment on above: Order Comment: REDRA W. PREVIOUS SPECIMEN REJECTED DUE TOHEMOLYSIS. 04/12/24 1220 Sharon Sandoval.1 Performed By: #### L 500.2500, L501.4020 ####[facility] [address] [place], [address] Chloride [Moles/Vol] 105 mmol/L Normal 98-107 [facility] Comment on above: Order Comment: REDRA W. PREVIOUS SPECIMEN REJECTED DUE TOHEMOLYSIS. 04/12/24 1220 Sharon Sandoval.1 Performed By: #### L 500.2500, L501.4020 ####[facility] [address] [place], [address] CO2 [Moles/Vol] 26.0 mmol/L Normal 21.0-32.0 [facility] Comment on above: Order Comment: REDRA W. PREVIOUS SPECIMEN REJECTED DUE TOHEMOLYSIS. 04/12/24 1220 Sharon Sandoval.1 Performed By: #### L 500.2500, L501.4020 ####[facility] [address] [place], [address] Creatinine [Mass/Vol] 0.97 mg/dL Normal 0.70-1.30 [facility] Comment on above: Order Comment: REDRA W. PREVIOUS SPECIMEN REJECTED DUE TOHEMOLYSIS. 04/12/24 1220 Sharon Sandoval.1 Result Comment: The validity of the calculated GFR GFRAA in patients over70 years has not been determined. Clinical correlation isessential. Performed By: #### L 500.2500, L501.4020 ####[facility] [address] [place], [address] EST GFR - AA 101 mL/min Normal >60 [facility] Comment on above: Order Comment: REDRA W. PREVIOUS SPECIMEN REJECTED DUE TOHEMOLYSIS. 04/12/24 1220 Sharon Sandoval.1 Result Comment: Afri can [place] GFR Calc Performed By: #### L 500.2500, L501.4020 ####[facility] [address] [place], [address] GAP 3 Low 5-15 [facility] Comment on above: Order Comment: REDRA W. PREVIOUS SPECIMEN REJECTED DUE TOHEMOLYSIS. 04/12/24 1220 Sharon Sandoval.1 Performed By: #### L 500.2500, L501.4020 ####[facility] [address] [place], [address] GFR/1.73 sq M.predicted among non-blacks MDRD (S/P/Bld) [Vol rate/Area] 84 mL/min/{1.73_m2} Normal >60 [facility] Comment on above: Order Comment: REDRA W. PREVIOUS SPECIMEN REJECTED DUE TOHEMOLYSIS. 04/12/24 1220 Sharon Sandoval.1 Result Comment: Non- GFR Calc Performed By: #### L 500.2500, L501.4020 ####[facility] [address] [place], [address] Glucose [Mass/Vol] 124 mg/dL High 74-106 [facility] Comment on above: Order Comment: REDRA W. PREVIOUS SPECIMEN REJECTED DUE TOHEMOLYSIS. 04/12/24 1220 Sharon Sandoval.1 Result Comment: Fast ing Glucose result from 100 to 125 mg/dLsuggests IMPAIRED HOMEOSTASIS per A.D.A. criteria. Performed By: #### L 500.2500, L501.4020 ####[facility] [address] [place], [address] Potassium [Moles/Vol] 3.7 mmol/L Normal 3.5-5.1 [facility] Comment on above: Order Comment: REDRA W. PREVIOUS SPECIMEN REJECTED DUE TOHEMOLYSIS. 04/12/24 1220 Sharon Sandoval.1 Performed By: #### L 500.2500, L501.4020 ####[facility] [address] [place], [address] Sodium [Moles/Vol] 134 mmol/L Low 136-145 [facility] Comment on above: Order Comment: REDRA W. PREVIOUS SPECIMEN REJECTED DUE TOHEMOLYSIS. 04/12/24 1220 Sharon Sandoval.1 Performed By: #### L 500.2500, L501.4020 ####[facility] [address] [place], [address] Urea nitrogen [Mass/Vol] 16 mg/dL Normal 7-18 [facility] Comment on above: Order Comment: REDRA W. PREVIOUS SPECIMEN REJECTED DUE TOHEMOLYSIS. 04/12/24 1220 Sharon Sandoval.1 Performed By: #### L 500.2500, L501.4020 ####[facility] [address] [place], [address] BUN Normal 7-18 [facility] Comment on above: Order Comment: 'TROP ' Serial specimen #1, #2 or #3: 1 Result Comment: This specimen has been REJECTED due to Laboratory criteria:Hemolyzed.PORSCHE has been notified of need of recollection.04/12/24 1218 Sharon Sandoval Performed By: #### L 503.6620, L500.2500, L100.0100 ####[facility] [address] [place], [address] BUN/CRE Normal 10-20 [facility] Comment on above: Order Comment: 'TROP ' Serial specimen #1, #2 or #3: 1 Result Comment: This specimen has been REJECTED due to Laboratory criteria:Hemolyzed.PORSCHE has been notified of need of recollection.04/12/24 1218 Sharon Sandoval Performed By: #### L 503.6620, L500.2500, L100.0100 ####[facility] [address] [place], [address] CA,Total Normal 8.5-10.1 [facility] Comment on above: Order Comment: 'TROP ' Serial specimen #1, #2 or #3: 1 Result Comment: This specimen has been REJECTED due to Laboratory criteria:Hemolyzed.PORSCHE has been notified of need of recollection.04/12/24 1218 Sharon Sandoval Performed By: #### L 503.6620, L500.2500, L100.0100 ####[facility] [address] [place], [address] CL Normal 98-107 [facility] Comment on above: Order Comment: 'TROP ' Serial specimen #1, #2 or #3: 1 Result Comment: This specimen has been REJECTED due to Laboratory criteria:Hemolyzed.PORSCHE has been notified of need of recollection.04/12/24 1218 Sharon Sandoval Performed By: #### L 503.6620, L500.2500, L100.0100 ####[facility] [address] [place], [address] CO2 Normal 21.0-32.0 [facility] Comment on above: Order Comment: 'TROP ' Serial specimen #1, #2 or #3: 1 Result Comment: This specimen has been REJECTED due to Laboratory criteria:Hemolyzed.PORSCHE has been notified of need of recollection.04/12/24 1218 Sharon Sandoval Performed By: #### L 503.6620, L500.2500, L100.0100 ####[facility] [address] [place], [address] CREAT,SERUM Normal 0.70-1.30 [facility] Comment on above: Order Comment: 'TROP ' Serial specimen #1, #2 or #3: 1 Result Comment: This specimen has been REJECTED due to Laboratory criteria:Hemolyzed.ELOISAE has been notified of need of recollection.04/12/24 1218 Sharon Sandoval Performed By: #### L 503.6620, L500.2500, L100.0100 ####[facility] [address] [place], [address] EST GFR Normal >60 [facility] Comment on above: Order Comment: 'TROP ' Serial specimen #1, #2 or #3: 1 Result Comment: This specimen has been REJECTED due to Laboratory criteria:Hemolyzed.ELOISAE has been notified of need of recollection.04/12/24 1218 Sharon Sandoval Performed By: #### L 503.6620, L500.2500, L100.0100 ####[facility] [address] [place], [address] EST GFR - AA Normal >60 [facility] Comment on above: Order Comment: 'TROP ' Serial specimen #1, #2 or #3: 1 Result Comment: This specimen has been REJECTED due to Laboratory criteria:Hemolyzed.ELOISAE has been notified of need of recollection.04/12/248 Sharon Sandoval Performed By: #### L 503.6620, L500.2500, L100.0100 ####[facility] [address] [place], [address] GAP Normal 5-15 [facility] Comment on above: Order Comment: 'TROP ' Serial specimen #1, #2 or #3: 1 Result Comment: This specimen has been REJECTED due to Laboratory criteria:Hemolyzed.CHRISILIE has been notified of need of recollection.04/12/24 1218 Sharon Sandoval Performed By: #### L 503.6620, L500.2500, L100.0100 ####[facility] [address] [place], [address] GLU Normal 74-106 [facility] Comment on above: Order Comment: 'TROP ' Serial specimen #1, #2 or #3: 1 Result Comment: This specimen has been REJECTED due to Laboratory criteria:Hemolyzed.PORSCHE has been notified of need of recollection.04/12/24 1218 Sharon Sandoval Performed By: #### L 503.6620, L500.2500, L100.0100 ####[facility] [address] [place], [address] Potassium Normal 3.5-5.1 [facility] Comment on above: Order Comment: 'TROP ' Serial specimen #1, #2 or #3: 1 Result Comment: This specimen has been REJECTED due to Laboratory criteria:Hemolyzed.ELOISAE has been notified of need of recollection.04/12/24 1218 Sharon Sandoval Performed By: #### L 503.6620, L500.2500, L100.0100 ####[facility] [address] [place], [address] Basic Metabolic Profile (BMP) Normal 136-145 [facility] Comment on above: Order Comment: 'TROP ' Serial specimen #1, #2 or #3: 1 Result Comment: This specimen has been REJECTED due to Laboratory criteria:Hemolyzed.CHRISILIE has been notified of need of recollection.04/12/24 1218 Sharon Sandoval Performed By: #### L 503.6620, L500.2500, L100.0100 ####[facility] [address] [place], [address] Bedside Glucoseon 04-12-2024 FINGERSTICK GLU 161 mg/dL High 74-106 [facility] Comment on above: Result Comment: ANI GEMENT OF PATIENT CARE PER NURSING PROTOCOL Performed By: #### L 501.080 ####[facility] [address] [place], [address] FINGERSTICK GLU 159 mg/dL High 74-106 [facility] Comment on above: Result Comment: ANI GEMENT OF PATIENT CARE PER NURSING PROTOCOL Performed By: #### L 501.080 ####[facility] [address] [place], [address] Blood cultureOrdered By: Katherin Alex on 04-12-2024 Bacteria identified Cx Nom (Bld) No growth in 5 days. [facility] Bacteria identified Cx Nom (Bld) Presumptive Micrococcus spp. Abnormal [facility] CBC W/Diff, Automatedon 04-01 Absolute Lymph 0.90 X10 3/uL Normal 0.83-4.51 [facility] Comment on above: Performed By: #### L 100.0100 ####[facility] [address] [place], [address] Absolute Neut 9.6 X10 3/uL High 2.0-7.7 [facility] Comment on above: Performed By: #### L 100.0100 ####[facility] [address] [place], [address] Basophils/100 WBC (Bld) 0.3 % Normal 0-1 [facility] Comment on above: Performed By: #### L 100.0100 ####[facility] [address] [place], [address] Eosinophils/100 WBC (Bld) 2.1 % Normal 0-5 [facility] Comment on above: Performed By: #### L 100.0100 ####[facility] [address] [place], [address] Erythrocyte distribution width (RBC) [Ratio] 20.1 % High 11.6-14.6 [facility] Comment on above: Performed By: #### L 100.0100 ####[facility] [address] [place], [address] Hematocrit (Bld) [Volume fraction] 28.3 % Low 40-54 [facility] Comment on above: Performed By: #### L 100.0100 ####[facility] [address] [place], [address] Hemoglobin (Bld) [Mass/Vol] 8.2 g/dL Low 13.0-16.5 [facility] Comment on above: Performed By: #### L 100.0100 ####[facility] [address] [place], [address] IG% 0.400 Normal 0.0-0.9 [facility] Comment on above: Result Comment: IG% - Immature Granulocytes (promyelocytes, myelocytes andmetamyelocytes) > 1% indicates that a LEFT SHIFT is Present. Performed By: #### L 100.0100 ####[facility] [address] [place], [address] Lymphocytes/100 WBC (Bld) 7.5 % Low 19-41 [facility] Comment on above: Performed By: #### L 100.0100 ####[facility] [address] [place], [address] MCH (RBC) [Entitic mass] 21.7 pg Low 27.0-32.0 [facility] Comment on above: Performed By: #### L 100.0100 ####[facility] [address] [place], [address] MCHC (RBC) [Mass/Vol] 29.0 g/dL Low 32-36 [facility] Comment on above: Performed By: #### L 100.0100 ####[facility] [address] [place], [address] MCV (RBC) [Entitic vol] 74.9 fL Low 80-94 [facility] Comment on above: Performed By: #### L 100.0100 ####[facility] [address] [place], [address] Monocytes/100 WBC (Bld) 9.4 % Normal 0-10 [facility] Comment on above: Performed By: #### L 100.0100 ####[facility] [address] [place], [address] Neutrophils/100 WBC (Bld) 80.3 % High 47-70 [facility] Comment on above: Performed By: #### L 100.0100 ####[facility] [address] [place], [address] Nucleated RBC (Bld) [#/Vol] 0 10*3/uL Normal 0-5 [facility] Comment on above: Performed By: #### L 100.0100 ####[facility] [address] [place], [address] Platelet mean volume (Bld) [Entitic vol] 9.6 fL Normal 6.2-12.0 [facility] Comment on above: Performed By: #### L 100.0100 ####[facility] [address] [place], [address] Platelets (Bld) [#/Vol] 282 10*3/uL Normal 150-450 [facility] Comment on above: Performed By: #### L 100.0100 ####[facility] [address] [place], [address] RBC (Bld) [#/Vol] 3.78 10*6/uL Low 4.6-6.2 [facility] Comment on above: Performed By: #### L 100.0100 ####[facility] [address] [place], [address] RDW SD 54.1 fl High 35.1-43.9 [facility] Comment on above: Performed By: #### L 100.0100 ####[facility] [address] [place], [address] WBC (Bld) [#/Vol] 12.0 10*3/uL High 4.4-11.0 [facility] Comment on above: Performed By: #### L 100.0100 ####[facility] [address] [place], [address] Absolute Lymph 0.90 X10 3/uL Normal 0.83-4.51 [facility] Comment on above: Performed By: #### L 503.6620, L500.2500, L100.0100 ####[facility] [address] [place], [address] Absolute Neut 9.9 X10 3/uL High 2.0-7.7 [facility] Comment on above: Performed By: #### L 503.6620, L500.2500, L100.0100 ####[facility] [address] [place], [address] Basophils/100 WBC (Bld) 0.4 % Normal 0-1 [facility] Comment on above: Performed By: #### L 503.6620, L500.2500, L100.0100 ####[facility] [address] [place], [address] Eosinophils/100 WBC (Bld) 2.3 % Normal 0-5 [facility] Comment on above: Performed By: #### L 503.6620, L500.2500, L100.0100 ####[facility] [address] [place], [address] Erythrocyte distribution width (RBC) [Ratio] 19.9 % High 11.6-14.6 [facility] Comment on above: Performed By: #### L 503.6620, L500.2500, L100.0100 ####[facility] [address] [place], [address] Hematocrit (Bld) [Volume fraction] 27.8 % Low 40-54 [facility] Comment on above: Performed By: #### L 503.6620, L500.2500, L100.0100 ####[facility] [address] [place], [address] Hemoglobin (Bld) [Mass/Vol] 8.2 g/dL Low 13.0-16.5 [facility] Comment on above: Performed By: #### L 503.6620, L500.2500, L100.0100 ####[facility] [address] [place], [address] IG% 0.400 Normal 0.0-0.9 [facility] Comment on above: Result Comment: IG% - Immature Granulocytes (promyelocytes, myelocytes andmetamyelocytes) > 1% indicates that a LEFT SHIFT is Present. Performed By: #### L 503.6620, L500.2500, L100.0100 ####[facility] [address] [place], [address] Lymphocytes/100 WBC (Bld) 7.4 % Low 19-41 [facility] Comment on above: Performed By: #### L 503.6620, L500.2500, L100.0100 ####[facility] [address] [place], [address] MCH (RBC) [Entitic mass] 22.1 pg Low 27.0-32.0 [facility] Comment on above: Performed By: #### L 503.6620, L500.2500, L100.0100 ####[facility] [address] [place], [address] MCHC (RBC) [Mass/Vol] 29.5 g/dL Low 32-36 [facility] Comment on above: Performed By: #### L 503.6620, L500.2500, L100.0100 ####[facility] [address] [place], [address] MCV (RBC) [Entitic vol] 74.9 fL Low 80-94 [facility] Comment on above: Performed By: #### L 503.6620, L500.2500, L100.0100 ####[facility] [address] [place], [address] Monocytes/100 WBC (Bld) 8.5 % Normal 0-10 [facility] Comment on above: Performed By: #### L 503.6620, L500.2500, L100.0100 ####[facility] [address] [place], [address] Neutrophils/100 WBC (Bld) 81.0 % High 47-70 [facility] Comment on above: Performed By: #### L 503.6620, L500.2500, L100.0100 ####[facility] [address] [place], [address] Nucleated RBC (Bld) [#/Vol] 0 10*3/uL Normal 0-5 [facility] Comment on above: Performed By: #### L 503.6620, L500.2500, L100.0100 ####[facility] [address] [place], [address] Platelet mean volume (Bld) [Entitic vol] 10.5 fL Normal 6.2-12.0 [facility] Comment on above: Performed By: #### L 503.6620, L500.2500, L100.0100 ####[facility] [address] [place], [address] Platelets (Bld) [#/Vol] 349 10*3/uL Normal 150-450 [facility] Comment on above: Performed By: #### L 503.6620, L500.2500, L100.0100 ####[facility] [address] [place], [address] RBC (Bld) [#/Vol] 3.71 10*6/uL Low 4.6-6.2 [facility] Comment on above: Performed By: #### L 503.6620, L500.2500, L100.0100 ####[facility] [address] [place], [address] RDW SD 53.1 fl High 35.1-43.9 [facility] Comment on above: Performed By: #### L 503.6620, L500.2500, L100.0100 ####[facility] [address] [place], [address] WBC (Bld) [#/Vol] 12.2 10*3/uL High 4.4-11.0 [facility] Comment on above: Performed By: #### L 503.6620, L500.2500, L100.0100 ####[facility] [address] [place], [address] CO2 (BldV) [Moles/Vol]Ordere d By: Luli Alex on 04-12-2024 CO2 [Moles/Vol] 24 mmol/L 23-33 [facility] Chest 1 View (Portable)on Chest 1 View (Portable) Normal [facility] Emergency Department Summary on 04-12-2024 Emergency Department Summary Normal [facility] H AND P Exam - Hospitaliston 04-12-2024 H&P Exam - Hospitalist Normal [facility] Influenza virus A and B and SARS-CoV-2 (COVID-19) and Respiratory syncytial virus RNAOrdered By: Luli Alex on 04-12-2024 SARS-CoV-2 (COVID-19) RNA FLORES+probe Ql (Unsp spec) [facility] L501.4020on 04-12-2024 TROPONIN-I HS 12 pg/mL Normal 3.0-78.0 [facility] Comment on above: Order Comment: Comme nts: SPECIMEN #3'TROP' Serial specimen #1, #2 or #3: 3 Result Comment: Kodi monterroso Note: New Test Units and Gender Specific Reference Ranges. For more information see Policy Stat Procedure [place] High Sensitivity Troponin (TNIH) and attachments. Performed By: #### L 501.4020 ####[facility] [address] [place], [address] TROPONIN-I HS 18 pg/mL Normal 3.0-78.0 [facility] Comment on above: Order Comment: Comme nts: SPECIMEN #2'TROP' Serial specimen #1, #2 or #3: 2 Result Comment: Plea se Note: New Test Units and Gender Specific Reference Ranges. For more information see Policy Stat Procedure [place] High Sensitivity Troponin (TNIH) and attachments. Performed By: #### L 501.4020 ####[facility] [address] [place], [address] TROPONIN-I HS 16 pg/mL Normal 3.0-78.0 [facility] Comment on above: Order Comment: NEETU W. PREVIOUS SPECIMEN REJECTED DUE TOHEMOLYSIS. 04/12/24 1220 Sharon Sandoval.1 Result Comment: Plea se Note: New Test Units and Gender Specific Reference Ranges. For more information see Policy Stat Procedure [place] High Sensitivity Troponin (TNIH) and attachments. Performed By: #### L 500.2500, L501.4020 ####[facility] [address] [facility] [address] M100.678on 04-12-2024 M100.678 Pending SARS-CoV-2 (COVID 19) Negative INFLUENZA A Negative INFLUENZA B Negative RSV PCR Negative Normal [facility] Comment on above: Performed By: #### M 100.678 ####[facility] [address] [place], [address] No Panel InformationOrdered By: Luli Alex on 04-12-2024 JOSHUA [facility] Not entered [facility] Cannula [facility] Organism identificationOrder ed By: Luli Alex on 04-12-2024 Microorganism identified Cx Nom (Unsp spec) [facility] Troponin IOrdered By: Eduin Ospina on 04-12-2024 Troponin I 12 pg/mL 3.0-78.0 [facility] Venous Blood Gason 5 Blood Gas Type JOSHUA Normal [facility] Comment on above: Performed By: #### L 9000.0810 ####[facility] [address] [place], [address] CO2 [Moles/Vol] 24 mmol/L Normal 23-33 [facility] Comment on above: Performed By: #### L 9000.0810 ####[facility] [address] [place], [address] FI02 5.0 Normal [facility] Comment on above: Performed By: #### L 9000.0810 ####[facility] [address] [place], [address] HCO3 (Bld) [Moles/Vol] 23 mmol/L Normal 22-26 [facility] Comment on above: Performed By: #### L 9000.0810 ####[facility] [address] [place], [address] O2 Delivery Dev Cannula Normal [facility] Comment on above: Performed By: #### L 9000.0810 ####[facility] [address] [place], [address] SITE Not entered Normal [facility] Comment on above: Performed By: #### L 9000.0810 ####[facility] [address] [place], [address] VBG BE -1 mmol/L Normal -1.0-3.5 [facility] Comment on above: Performed By: #### L 9000.0810 ####[facility] [address] [place], [address] VBG pCO2 34.8 mmHg Low 41-51 [facility] Comment on above: Performed By: #### L 9000.0810 ####[facility] [address] [place], [address] VBG pH 7.43 High 7.32-7.42 [facility] Comment on above: Performed By: #### L 9000.0810 ####[facility] [address] [place], [address] VBG PO2 30 mmHg Normal 25-40 [facility] Comment on above: Performed By: #### L 9000.0810 ####[facility] [address] [place], [address] VBG SO2 60 Normal 50-70 [facility] Comment on above: Performed By: #### L 9000.0810 ####[facility] [address] [place], [address] Venous blood base excess elizabeth surementOrdered By: Luli Alex on 04-12-2024 Base excess Calc (BldV) [Moles/Vol] -1 mmol/L -1.0-3.5 [facility] Venous blood bicarbonate elizabeth surementOrdered By: Luli Alex on 04-12-2024 HCO3 (Bld) [Moles/Vol] 23 mmol/L 22-26 [facility] Venous blood pH measurementO rdered By: Luli Alex on 04-12-2024 pH (BldV) 7.43 [pH] High 7.32-7.42 [facility] Venous blood partial pressur e of carbon dioxide measurementOrdered By: Luli Alex on 04-12-2024 CO2 (BldV) [Partial pressure] 34.8 mm[Hg] Low 41-51 [facility] Venous blood partial pressur e of oxygen measurementOrdered By: Luli Alex on 04-12-2024 Oxygen (BldV) [Partial pressure] 30 mm[Hg] 25-40 [facility] 36on 04-09-2024 36 Call ref #[id number] 000 NAN for CPT 47073 & 09987 Normal [facility] No Panel Informationon 04-07 1. There is [...] MD Electronically Signed Date/Time: 04/07/2024 12:27 AM [facility] [employer] [facility] 1965 [id number] Exam Date/Time: 04/06/2024 13:31 Procedure: VASC US [...] ECA systolic: 256 cm/sec Vertebral: [employer] [facility] [employer] Sameer Etienne MD - 04/07/2024 Patient Name: [facility]RUNAL [facility] 1965 [id number] Exam Date/Time: 04/06/2024 13:31 Procedure: VASC US [...] Electronically Signed Date/Time: 04/07/2024 12:27 AM EST [employer] [facility] US CAROTID ARTERY DUPLE X BILATERALon 04-07-2024 [facility] US CAROTID ARTERY DUPLEX BILATERAL Patient Name: KRUNAL LEOS : 1965 [id number] Exam Date/Time: 04/06/2024 13:31 Procedure: VAS US [...] Signed Date/Time: 04/07/2024 12:27 AM EST Normal [facility] Office Visit Reporton 2023 Office Visit Report Normal [facility] Bedside Glucoseon 03-27-2024 FINGERSTICK GLU 195 mg/dL High 74-106 [facility] Comment on above: Result Comment: ANI OMARENT OF PATIENT CARE PER NURSING PROTOCOL Performed By: #### L 501.080 ####[facility] [address] [place], [address] Colonoscopy Reporton 024 Colonoscopy Report Normal [facility] EGD Reporton 03-27-2024 EGD Report Normal [facility] H Pylori (initial)on 024 H Pylori (initial) Normal [facility] Comment on above: Performed By: #### P H.PYLORI ####[facility] [address] [place], [address] MR/POSTOP.ANEon 03-27-2024 MR/POSTOP.ANE Normal [facility] MR/SONAKNIO6bo 03-27-2024 MR/POSTOPAN2 Normal [facility] Surgery Specimen Level Dolores 03-27-2024 Surgery Specimen Level IV Normal [facility] Comment on above: Performed By: #### P SUIV ####[facility] [address] [place], [place], [address] Pulmonary Visit Reporton Pulmonary Visit Report Normal [facility] MR/PAT.ANEon 03-20-2024 MR/PAT.ANE Normal [facility] Cardiology Visit Reporton Cardiology Visit Report Normal [facility] RICARDO w/ Reflex Mult Confirmon 03-05-2024 RICARDO,DIRECT Negative Normal Negative [facility] Comment on above: Result Comment: Perf ormed at: [facility] [id number] [place], [place] [id number] Director: Chance Morales PhD, Phone: [phone] Performed By: #### L 505.7010, L3300.1200, L3100.5450, L4600.0100 ####[facility] [address] [place], [address] ANCAon 03-05-2024 Atypical pANCA <1:20 Normal Neg:<1:20 [facility] Comment on above: Result Comment: The atypical pANCA pattern has been observed in asignificant percentage of patients with ulcerative colitis,primary sclerosing cholangitis and autoimmune hepatitis. Performed By: #### L 505.7010, L3300.1200, L3100.5450, L4600.0100 ####[facility] [address] [place], [address] Cytoplasmic Ab <1:20 Normal Neg:<1:20 [facility] Comment on above: Performed By: #### L 505.7010, L3300.1200, L3100.5450, L4600.0100 ####[facility] [address] [place], [address] Perinuclear Ab. <1:20 Normal Neg:<1:20 [facility] Comment on above: Result Comment: The presence of positive fluorescence exhibiting P-ANCA orC-ANCA patterns alone is not specific for the diagnosis ofWegener's Granulomatosis (WG) or microscopic polyangiitis.Decisions about treatment should not be based solely onANCA IFA results. The International ANCA Group Consensusrecommends follow up testing of positive sera with both MN-3 and MPO-ANCA enzyme immunoassays. As many as 5% serumsamples are positive only by EIA. Ref. AM J Clin Lfwhem9066;111:507-513. Performed By: #### L 505.7010, L3300.1200, L3100.5450, L4600.0100 ####[facility] [address] [place], [address] CCP IgG Antibodieson 024 CCP IgG Ab. 6 units Normal 0-19 [facility] Comment on above: Result Comment: Nega tive <20 Weak positive 20 - 39 Moderate positive 40 - 59 Strong positive >59Performed at: [facility] [place], [place] [id number] Director: Chance Morales PhD, Phone: [phone] Performed By: #### L 505.7010, L3300.1200, L3100.5450, L4600.0100 ####[facility] [address] [place], [address] Discharge Instructionon Discharge Instruction Normal [facility] Rheumatoid Factoron 03-04-20 24 RHEUMATOID FAC 25.0 IU/mL High <15 [facility] Comment on above: Performed By: #### L 505.7010, L3300.1200, L3100.5450, L4600.0100 ####[facility] [address] [place], [address] CBC W/Diff, Automatedon Absolute Lymph 1.46 X10 3/uL Normal 0.83-4.51 [facility] Comment on above: Performed By: #### L 501.9520, L100.0100 ####[facility] [address] [place], [address] Absolute Neut 5.9 X10 3/uL Normal 2.0-7.7 [facility] Comment on above: Performed By: #### L 501.9520, L100.0100 ####[facility] [address] [place], [address] Basophils/100 WBC (Bld) 0.6 % Normal 0-1 [facility] Comment on above: Performed By: #### L 501.9520, L100.0100 ####[facility] [address] [place], [address] Eosinophils/100 WBC (Bld) 2.9 % Normal 0-5 [facility] Comment on above: Performed By: #### L 501.9520, L100.0100 ####[facility] [address] [place], [address] Erythrocyte distribution width (RBC) [Ratio] 17.6 % High 11.6-14.6 [facility] Comment on above: Performed By: #### L 501.9520, L100.0100 ####[facility] [address] [place], [address] Hematocrit (Bld) [Volume fraction] 31.2 % Low 40-54 [facility] Comment on above: Performed By: #### L 501.9520, L100.0100 ####[facility] [address] [place], [address] Hemoglobin (Bld) [Mass/Vol] 9.0 g/dL Low 13.0-16.5 [facility] Comment on above: Performed By: #### L 501.9520, L100.0100 ####[facility] [address] [place], [address] IG% 0.400 Normal 0.0-0.9 [facility] Comment on above: Result Comment: IG% - Immature Granulocytes (promyelocytes, myelocytes andmetamyelocytes) > 1% indicates that a LEFT SHIFT is Present. Performed By: #### L 501.9520, L100.0100 ####[facility] [address] [place], [address] Lymphocytes/100 WBC (Bld) 17.2 % Low 19-41 [facility] Comment on above: Performed By: #### L 501.9520, L100.0100 ####[facility] [address] [place], [address] MCH (RBC) [Entitic mass] 21.9 pg Low 27.0-32.0 [facility] Comment on above: Performed By: #### L 501.9520, L100.0100 ####[facility] [address] [place], [address] MCHC (RBC) [Mass/Vol] 28.8 g/dL Low 32-36 [facility] Comment on above: Performed By: #### L 501.9520, L100.0100 ####[facility] [address] [place], [address] MCV (RBC) [Entitic vol] 75.9 fL Low 80-94 [facility] Comment on above: Performed By: #### L 501.9519, L100.0100 ####[facility] [address] [place], [address] Monocytes/100 WBC (Bld) 9.3 % Normal 0-10 [facility] Comment on above: Performed By: #### L 501.20, L100.0100 ####[facility] [address] [place], [address] Neutrophils/100 WBC (Bld) 69.6 % Normal 47-70 [facility] Comment on above: Performed By: #### L 501.20, L100.0100 ####[facility] [address] [place], [address] Nucleated RBC (Bld) [#/Vol] 0 10*3/uL Normal 0-5 [facility] Comment on above: Performed By: #### L 501.9520, L100.0100 ####[facility] [address] [place], [address] Platelet mean volume (Bld) [Entitic vol] 9.8 fL Normal 6.2-12.0 [facility] Comment on above: Performed By: #### L 501.9520, L100.0100 ####[facility] [address] [place], [address] Platelets (Bld) [#/Vol] 227 10*3/uL Normal 150-450 [facility] Comment on above: Performed By: #### L 501.95, L100.0100 ####[facility] [address] [place], [address] RBC (Bld) [#/Vol] 4.11 10*6/uL Low 4.6-6.2 [facility] Comment on above: Performed By: #### L 501.95, L100.0100 ####[facility] [address] [place], [address] RDW SD 47.8 fl High 35.1-43.9 [facility] Comment on above: Performed By: #### L 501.95, L100.0100 ####[facility] [address] [place], [place], [address] WBC (Bld) [#/Vol] 8.5 10*3/uL Normal 4.4-11.0 [facility] Comment on above: Performed By: #### L 501.9520, L100.0100 ####[facility] [address] [place], [address] Chest without Contraston Chest without Contrast Normal [facility] Consultation - Intensiviston 03-03-2024 Consultation - Supervisor Last Model Department Normal [facility] RESPIRATORY PANEL MOLECULARo n 03-03-2024 RP PANEL Normal [facility] Comment on above: Performed By: #### M 100.638 ####[facility] [address] [place], [address] Thyroid Stim Hormone (TSH)on 03-03-2024 TSH 1.390 uIU/mL Normal 0.358-3.74 0 [facility] Comment on above: Performed By: #### L 501.9520, L100.0100 ####[facility] [address] [place], [address] 12 Lead EKGon 03-02-2024 12 Lead EKG Normal [facility] BNP,B-Type NATRIURETIC PEPTI Sindy 03-02-2024 Natriuretic peptide B (Bld) [Mass/Vol] 48.5 pg/mL Normal 0-100 [facility] Comment on above: Performed By: #### L 100.0100, L500.2500, L503.6620, L501.4020 ####[facility] [address] [place], [address] Basic Metabolic Profile (BMP )on 03-02-2024 BUN/CRE 23.3 RATIO High 10-20 [facility] Comment on above: Order Comment: 'TROP ' Serial specimen #1, #2 or #3: 1 Performed By: #### L 100.0100, L500.2500, L503.6620, L501.4020 ####[facility] [address] [place], [address] CA,Total 9.0 mg/dL Normal 8.5-10.1 [facility] Comment on above: Order Comment: 'TROP ' Serial specimen #1, #2 or #3: 1 Performed By: #### L 100.0100, L500.2500, L503.6620, L501.4020 ####[facility] [address] [place], [address] Chloride [Moles/Vol] 107 mmol/L Normal 98-107 [facility] Comment on above: Order Comment: 'TROP ' Serial specimen #1, #2 or #3: 1 Performed By: #### L 100.0100, L500.2500, L503.6620, L501.4020 ####[facility] [address] [place], [address] CO2 [Moles/Vol] 24.0 mmol/L Normal 21.0-32.0 [facility] Comment on above: Order Comment: 'TROP ' Serial specimen #1, #2 or #3: 1 Performed By: #### L 100.0100, L500.2500, L503.6620, L501.4020 ####[facility] [address] [place], [address] Creatinine [Mass/Vol] 1.03 mg/dL Normal 0.70-1.30 [facility] Comment on above: Order Comment: 'TROP ' Serial specimen #1, #2 or #3: 1 Result Comment: The validity of the calculated GFR GFRAA in patients over70 years has not been determined. Clinical correlation isessential. Performed By: #### L 100.0100, L500.2500, L503.6620, L501.4020 ####[facility] [address] [place], [address] ECRCL 107.77 ml/min Normal [facility] Comment on above: Order Comment: 'TROP ' Serial specimen #1, #2 or #3: 1 Performed By: #### L 100.0100, L500.2500, L503.6620, L501.4020 ####[facility] [address] [place], [address] EST GFR - AA 95 mL/min Normal >60 [facility] Comment on above: Order Comment: 'TROP ' Serial specimen #1, #2 or #3: 1 Result Comment: Afri can [place] GFR Calc Performed By: #### L 100.0100, L500.2500, L503.6620, L501.4020 ####[facility] [address] [place], [address] GAP 6 Normal 5-15 [facility] Comment on above: Order Comment: 'TROP ' Serial specimen #1, #2 or #3: 1 Performed By: #### L 100.0100, L500.2500, L503.6620, L501.4020 ####[facility] [address] [place], [address] GFR/1.73 sq M.predicted among non-blacks MDRD (S/P/Bld) [Vol rate/Area] 78 mL/min/{1.73_m2} Normal >60 [facility] Comment on above: Order Comment: 'TROP ' Serial specimen #1, #2 or #3: 1 Result Comment: Non- GFR Calc Performed By: #### L 100.0100, L500.2500, L503.6620, L501.4020 ####[facility] [address] [place], [address] Glucose [Mass/Vol] 220 mg/dL High 74-106 [facility] Comment on above: Order Comment: 'TROP ' Serial specimen #1, #2 or #3: 1 Result Comment: Gluc ose result greater than or equal to 200 mg/dLsuggests DIABETES MELLITUS per A.D.A. criteria. Performed By: #### L 100.0100, L500.2500, L503.6620, L501.4020 ####[facility] [address] [place], [address] Potassium [Moles/Vol] 4.0 mmol/L Normal 3.5-5.1 [facility] Comment on above: Order Comment: 'TROP ' Serial specimen #1, #2 or #3: 1 Performed By: #### L 100.0100, L500.2500, L503.6620, L501.4020 ####[facility] [address] [place], [address] Sodium [Moles/Vol] 136 mmol/L Normal 136-145 [facility] Comment on above: Order Comment: 'TROP ' Serial specimen #1, #2 or #3: 1 Performed By: #### L 100.0100, L500.2500, L503.6620, L501.4020 ####[facility] [address] [place], [address] Urea nitrogen [Mass/Vol] 24 mg/dL High 7-18 [facility] Comment on above: Order Comment: 'TROP ' Serial specimen #1, #2 or #3: 1 Performed By: #### L 100.0100, L500.2500, L503.6620, L501.4020 ####[facility] [address] [place], [address] CBC W/Diff, Automatedon 12-0 2-2023 Absolute Lymph 1.30 X10 3/uL Normal 0.83-4.51 [facility] Comment on above: Performed By: #### L 100.0100, L500.2500, L503.6620, L501.4020 ####[facility] [address] [place], [address] Absolute Neut 6.6 X10 3/uL Normal 2.0-7.7 [facility] Comment on above: Performed By: #### L 100.0100, L500.2500, L503.6620, L501.4020 ####[facility] [address] [place], [address] Basophils/100 WBC (Bld) 0.6 % Normal 0-1 [facility] Comment on above: Performed By: #### L 100.0100, L500.2500, L503.6620, L501.4020 ####[facility] [address] [place], [address] Eosinophils/100 WBC (Bld) 2.4 % Normal 0-5 [facility] Comment on above: Performed By: #### L 100.0100, L500.2500, L503.6620, L501.4020 ####[facility] [address] [place], [address] Erythrocyte distribution width (RBC) [Ratio] 17.9 % High 11.6-14.6 [facility] Comment on above: Performed By: #### L 100.0100, L500.2500, L503.6620, L501.4020 ####[facility] [address] [place], [address] Hematocrit (Bld) [Volume fraction] 32.1 % Low 40-54 [facility] Comment on above: Performed By: #### L 100.0100, L500.2500, L503.6620, L501.4020 ####[facility] [address] [place], [address] Hemoglobin (Bld) [Mass/Vol] 9.3 g/dL Low 13.0-16.5 [facility] Comment on above: Performed By: #### L 100.0100, L500.2500, L503.6620, L501.4020 ####[facility] [address] [place], [address] IG% 0.400 Normal 0.0-0.9 [facility] Comment on above: Result Comment: IG% - Immature Granulocytes (promyelocytes, myelocytes andmetamyelocytes) > 1% indicates that a LEFT SHIFT is Present. Performed By: #### L 100.0100, L500.2500, L503.6620, L501.4020 ####[facility] [address] [place], [address] Lymphocytes/100 WBC (Bld) 14.4 % Low 19-41 [facility] Comment on above: Performed By: #### L 100.0100, L500.2500, L503.6620, L501.4020 ####[facility] [address] [place], [address] MCH (RBC) [Entitic mass] 22.2 pg Low 27.0-32.0 [facility] Comment on above: Performed By: #### L 100.0100, L500.2500, L503.6620, L501.4020 ####[facility] [address] [place], [address] MCHC (RBC) [Mass/Vol] 29.0 g/dL Low 32-36 [facility] Comment on above: Performed By: #### L 100.0100, L500.2500, L503.6620, L501.4020 ####[facility] [address] [place], [address] MCV (RBC) [Entitic vol] 76.6 fL Low 80-94 [facility] Comment on above: Performed By: #### L 100.0100, L500.2500, L503.6620, L501.4020 ####[facility] [address] [place], [address] Monocytes/100 WBC (Bld) 8.3 % Normal 0-10 [facility] Comment on above: Performed By: #### L 100.0100, L500.2500, L503.6620, L501.4020 ####[facility] [address] [place], [address] Neutrophils/100 WBC (Bld) 73.9 % High 47-70 [facility] Comment on above: Performed By: #### L 100.0100, L500.2500, L503.6620, L501.4020 ####[facility] [address] [place], [address] Nucleated RBC (Bld) [#/Vol] 0 10*3/uL Normal 0-5 [facility] Comment on above: Performed By: #### L 100.0100, L500.2500, L503.6620, L501.4020 ####[facility] [address] [place], [address] Platelet mean volume (Bld) [Entitic vol] 10.6 fL Normal 6.2-12.0 [facility] Comment on above: Performed By: #### L 100.0100, L500.2500, L503.6620, L501.4020 ####[facility] [address] [place], [address] Platelets (Bld) [#/Vol] 242 10*3/uL Normal 150-450 [facility] Comment on above: Performed By: #### L 100.0100, L500.2500, L503.6620, L501.4020 ####[facility] [address] [place], [address] RBC (Bld) [#/Vol] 4.19 10*6/uL Low 4.6-6.2 [facility] Comment on above: Performed By: #### L 100.0100, L500.2500, L503.6620, L501.4020 ####[facility] [address] [place], [address] RDW SD 49.2 fl High 35.1-43.9 [facility] Comment on above: Performed By: #### L 100.0100, L500.2500, L503.6620, L501.4020 ####[facility] [address] [place], [address] WBC (Bld) [#/Vol] 9.0 10*3/uL Normal 4.4-11.0 [facility] Comment on above: Performed By: #### L 100.0100, L500.2500, L503.6620, L501.4020 ####[facility] [address] [place], [address] Chest PA and Lateralon 03-02 Chest PA and Lateral Normal [facility] Echo Complete W/ Contraston 03-02-2024 Echo Complete W/ Contrast Normal [facility] Emergency Department Summary on 03-02-2024 Emergency Department Summary Normal [facility] H AND P Exam - Hospitaliston 03-02-2024 H&P Exam - Hospitalist Normal [facility] L501.4020on 03-02-2024 TROPONIN-I HS 35 pg/mL Normal 3.0-78.0 [facility] Comment on above: Order Comment: 'TROP ' Serial specimen #1, #2 or #3: 1 Result Comment: Kodi monterroso Note: New Test Units and Gender Specific Reference Ranges. For more information see Policy Stat Procedure [place] High Sensitivity Troponin (TNIH) and attachments. Performed By: #### L 100.0100, L500.2500, L503.6620, L501.4020 ####[facility] [address] [place], [address] M100.678on 03-02-2024 M100.678 Pending SARS-CoV-2 (COVID 19) Negative INFLUENZA A Negative INFLUENZA B Negative RSV PCR Negative Normal [facility] Comment on above: Performed By: #### M 100.678 ####[facility] [address] [place], [address] Basic Metabolic Profile (BMP )on 02-26-2024 BUN/CRE 20.5 RATIO High 10-20 [facility] Comment on above: Order Comment: 'TROP ' Serial specimen #1, #2 or #3: 1 Performed By: #### L 501.5200, L501.4020, L500.2500, L100.0100 ####[facility] [address] [place], [address] CA,Total 9.0 mg/dL Normal 8.5-10.1 [facility] Comment on above: Order Comment: 'TROP ' Serial specimen #1, #2 or #3: 1 Performed By: #### L 501.5200, L501.4020, L500.2500, L100.0100 ####[facility] [address] [place], [address] Chloride [Moles/Vol] 109 mmol/L High 98-107 [facility] Comment on above: Order Comment: 'TROP ' Serial specimen #1, #2 or #3: 1 Performed By: #### L 501.5200, L501.4020, L500.2500, L100.0100 ####[facility] [address] [place], [address] CO2 [Moles/Vol] 22.0 mmol/L Normal 21.0-32.0 [facility] Comment on above: Order Comment: 'TROP ' Serial specimen #1, #2 or #3: 1 Performed By: #### L 501.5200, L501.4020, L500.2500, L100.0100 ####[facility] [address] [place], [address] Creatinine [Mass/Vol] 1.32 mg/dL High 0.70-1.30 [facility] Comment on above: Order Comment: 'TROP ' Serial specimen #1, #2 or #3: 1 Result Comment: The validity of the calculated GFR GFRAA in patients over70 years has not been determined. Clinical correlation isessential. Performed By: #### L 501.5200, L501.4020, L500.2500, L100.0100 ####[facility] [address] [place], [address] ECRCL 83.89 ml/min Normal [facility] Comment on above: Order Comment: 'TROP ' Serial specimen #1, #2 or #3: 1 Performed By: #### L 501.5200, L501.4020, L500.2500, L100.0100 ####[facility] [address] [place], [address] EST GFR - AA 71 mL/min Normal >60 [facility] Comment on above: Order Comment: 'TROP ' Serial specimen #1, #2 or #3: 1 Result Comment: Afri can [place] GFR Calc Performed By: #### L 501.5200, L501.4020, L500.2500, L100.0100 ####[facility] [address] [place], [address] GAP 7 Normal 5-15 [facility] Comment on above: Order Comment: 'TROP ' Serial specimen #1, #2 or #3: 1 Performed By: #### L 501.5200, L501.4020, L500.2500, L100.0100 ####[facility] [address] [place], [address] GFR/1.73 sq M.predicted among non-blacks MDRD (S/P/Bld) [Vol rate/Area] 59 mL/min/{1.73_m2} Low >60 [facility] Comment on above: Order Comment: 'TROP ' Serial specimen #1, #2 or #3: 1 Result Comment: Non- GFR Calc Performed By: #### L 501.5200, L501.4020, L500.2500, L100.0100 ####[facility] [address] [place], [address] Glucose [Mass/Vol] 193 mg/dL High 74-106 [facility] Comment on above: Order Comment: 'TROP ' Serial specimen #1, #2 or #3: 1 Result Comment: Fast ing Glucose result greater than or equal to 126 mg/dLsuggests DIABETES MELLITUS per A.D.A. criteria. Performed By: #### L 501.5200, L501.4020, L500.2500, L100.0100 ####[facility] [address] [place], [address] Potassium [Moles/Vol] 4.0 mmol/L Normal 3.5-5.1 [facility] Comment on above: Order Comment: 'TROP ' Serial specimen #1, #2 or #3: 1 Performed By: #### L 501.5200, L501.4020, L500.2500, L100.0100 ####[facility] [address] [place], [address] Sodium [Moles/Vol] 138 mmol/L Normal 136-145 [facility] Comment on above: Order Comment: 'TROP ' Serial specimen #1, #2 or #3: 1 Performed By: #### L 501.5200, L501.4020, L500.2500, L100.0100 ####[facility] [address] [place], [address] Urea nitrogen [Mass/Vol] 27 mg/dL High 7-18 [facility] Comment on above: Order Comment: 'TROP ' Serial specimen #1, #2 or #3: 1 Performed By: #### L 501.5200, L501.4020, L500.2500, L100.0100 ####[facility] [address] [place], [address] CBC W/Diff, Automatedon 11-2 Absolute Lymph 1.36 X10 3/uL Normal 0.83-4.51 [facility] Comment on above: Performed By: #### L 501.5200, L501.4020, L500.2500, L100.0100 ####[facility] [address] [place], [address] Absolute Neut 6.7 X10 3/uL Normal 2.0-7.7 [facility] Comment on above: Performed By: #### L 501.5200, L501.4020, L500.2500, L100.0100 ####[facility] [address] [place], [address] Basophils/100 WBC (Bld) 0.9 % Normal 0-1 [facility] Comment on above: Performed By: #### L 501.5200, L501.4020, L500.2500, L100.0100 ####[facility] [address] [place], [address] Eosinophils/100 WBC (Bld) 2.1 % Normal 0-5 [facility] Comment on above: Performed By: #### L 501.5200, L501.4020, L500.2500, L100.0100 ####[facility] [address] [place], [address] Erythrocyte distribution width (RBC) [Ratio] 18.2 % High 11.6-14.6 [facility] Comment on above: Performed By: #### L 501.5200, L501.4020, L500.2500, L100.0100 ####[facility] [address] [place], [address] Hematocrit (Bld) [Volume fraction] 34.4 % Low 40-54 [facility] Comment on above: Performed By: #### L 501.5200, L501.4020, L500.2500, L100.0100 ####[facility] [address] [place], [address] Hemoglobin (Bld) [Mass/Vol] 10.2 g/dL Low 13.0-16.5 [facility] Comment on above: Performed By: #### L 501.5200, L501.4020, L500.2500, L100.0100 ####[facility] [address] [place], [address] IG% 0.400 Normal 0.0-0.9 [facility] Comment on above: Result Comment: IG% - Immature Granulocytes (promyelocytes, myelocytes andmetamyelocytes) > 1% indicates that a LEFT SHIFT is Present. Performed By: #### L 501.5200, L501.4020, L500.2500, L100.0100 ####[facility] [address] [place], [address] Lymphocytes/100 WBC (Bld) 14.5 % Low 19-41 [facility] Comment on above: Performed By: #### L 501.5200, L501.4020, L500.2500, L100.0100 ####[facility] [address] [place], [address] MCH (RBC) [Entitic mass] 22.7 pg Low 27.0-32.0 [facility] Comment on above: Performed By: #### L 501.5200, L501.4020, L500.2500, L100.0100 ####[facility] [address] [place], [address] MCHC (RBC) [Mass/Vol] 29.7 g/dL Low 32-36 [facility] Comment on above: Performed By: #### L 501.5200, L501.4020, L500.2500, L100.0100 ####[facility] [address] [place], [address] MCV (RBC) [Entitic vol] 76.6 fL Low 80-94 [facility] Comment on above: Performed By: #### L 501.5200, L501.4020, L500.2500, L100.0100 ####[facility] [address] [place], [address] Monocytes/100 WBC (Bld) 10.1 % High 0-10 [facility] Comment on above: Performed By: #### L 501.5200, L501.4020, L500.2500, L100.0100 ####[facility] [address] [place], [address] Neutrophils/100 WBC (Bld) 72.0 % High 47-70 [facility] Comment on above: Performed By: #### L 501.5200, L501.4020, L500.2500, L100.0100 ####[facility] [address] [place], [address] Nucleated RBC (Bld) [#/Vol] 0 10*3/uL Normal 0-5 [facility] Comment on above: Performed By: #### L 501.5200, L501.4020, L500.2500, L100.0100 ####[facility] [address] [place], [address] Platelet mean volume (Bld) [Entitic vol] 10.1 fL Normal 6.2-12.0 [facility] Comment on above: Performed By: #### L 501.5200, L501.4020, L500.2500, L100.0100 ####[facility] [address] [place], [address] Platelets (Bld) [#/Vol] 254 10*3/uL Normal 150-450 [facility] Comment on above: Performed By: #### L 501.5200, L501.4020, L500.2500, L100.0100 ####[facility] [address] [place], [address] RBC (Bld) [#/Vol] 4.49 10*6/uL Low 4.6-6.2 [facility] Comment on above: Performed By: #### L 501.5200, L501.4020, L500.2500, L100.0100 ####[facility] [address] [place], [address] RDW SD 49.1 fl High 35.1-43.9 [facility] Comment on above: Performed By: #### L 501.5200, L501.4020, L500.2500, L100.0100 ####[facility] [address] [place], [address] WBC (Bld) [#/Vol] 9.4 10*3/uL Normal 4.4-11.0 [facility] Comment on above: Performed By: #### L 501.5200, L501.4020, L500.2500, L100.0100 ####[facility] [address] [place], [address] Chest 1 View (Portable)on Chest 1 View (Portable) Normal [facility] D-Dimer Quantitative (DVT/PE )on 02-26-2024 D-DIMER QUANT 0.44 FEU/ug/m Normal 0.27-0.49 [facility] Comment on above: Result Comment: NORM AL D-Dimer level (<0.50) indicates no DVT or PE. Performed By: #### L 300.8000 ####[facility] [address] [place], [address] Emergency Department Summary on 02-26-2024 Emergency Department Summary Normal [facility] L501.4020on 02-26-2024 TROPONIN-I HS 443 pg/mL Invalid Interpretation Code 3.0-78.0 [facility] Comment on above: Order Comment: 'TROP ' Serial specimen #1, #2 or #3: 2 Result Comment: Crit ical Result(s) Called at: 13:36:54 02/26/2024 by: CINDI Estevez. Results read back by same. Please Note: New Test Units and Gender Specific Reference Ranges. For more information see Policy Stat Procedure [place] High Sensitivity Troponin (TNIH) and attachments. Performed By: #### L 501.4020 ####[facility] [address] [place], [address] TROPONIN-I HS 358 pg/mL Invalid Interpretation Code 3.0-78.0 [facility] Comment on above: Order Comment: 'TROP ' Serial specimen #1, #2 or #3: 1 Result Comment: Crit ical Result(s) Called at: 11:46:25 02/26/2024 by: CINDI Vazquez. Results read back by same. Please Note: New Test Units and Gender Specific Reference Ranges. For more information see Policy Stat Procedure [place] High Sensitivity Troponin (TNIH) and attachments. Performed By: #### L 501.5200, L501.4020, L500.2500, L100.0100 ####[facility] [address] [place], [address] Magnesiumon 02-26-2024 Magnesium [Mass/Vol] 2.3 mg/dL Normal 1.6-2.6 [facility] Comment on above: Order Comment: 'TROP ' Serial specimen #1, #2 or #3: 1 Performed By: #### L 501.5200, L501.4020, L500.2500, L100.0100 ####[facility] [address] [place], [address] Office Visit Reporton 2023 Office Visit Report Normal [facility] Neurology Visit Reporton Neurology Visit Report Normal [facility] 36on 02-12-2024 36 Notes and imaging reviewed [...] will determine when to resume Eliquis. Normal [facility] 36 This patient left a voicemail returning a call regarding his test results with Dr. Hutton Please advise :) Normal [facility] Gastroenterology Visit Repor ton 02-07-2024 Gastroenterology Visit Report Normal [facility] 36on 02-06-2024 36 Name of caller: Harpreet damon Contact phone number: [phone] Relationship to Patient: care team amanda Provider: Jose Antonio Practice: Endovascular Chief Complaint/Reason for Call: please send all lab work from September to fax [phone] [facility] Best time of day caller can be reached: any Patient advised that office/PCP has 24-48 business hours to return their call: No Normal [facility] CT HEAD NECK ANGIO W AND WO [...] carotid artery stenosis, Ischemic cerebrovascular accident Normal [facility] Thyroidon 02-06-2024 Thyroid Normal [facility] Progress Noteon 02-05-2024 Progress Note 02/05/24 Pt was seen today for CT Head/Neck w & wo contrast @ [facility] Pt had multiple attempts for IV placement from 2 different techs, with no success. Patient did inform us that he is a very hard stick and normally US is needed. Reached out to oncology for assistance but were extremely busy. Pt was advised to call central scheduling to reschedule at either [facility] or [facility] as they have US. He was initially scheduled at [facility]. The office was contacted on 02/05/24 to relay the information on the outcome of today's CT exam. Christine at the office was given this information. Normal [facility] Oncology Visit Reporton Oncology Visit Report Normal [facility] Basic Metabolic Profile (BMP )on 01-22-2024 BUN/CRE 25.4 RATIO High 01-18 [facility] Comment on above: Performed By: #### L 500.2500, L100.0100 ####[facility] [address] [place], [address] CA,Total 8.9 mg/dL Normal 8.5-10.1 [facility] Comment on above: Performed By: #### L 500.2500, L100.0100 ####[facility] [address] [place], [address] Chloride [Moles/Vol] 105 mmol/L Normal 98-107 [facility] Comment on above: Performed By: #### L 500.2500, L100.0100 ####[facility] [address] [place], [address] CO2 [Moles/Vol] 24.0 mmol/L Normal 21.0-32.0 [facility] Comment on above: Performed By: #### L 500.2500, L100.0100 ####[facility] [address] [place], [address] Creatinine [Mass/Vol] 1.22 mg/dL Normal 0.70-1.30 [facility] Comment on above: Result Comment: The validity of the calculated GFR GFRAA in patients over70 years has not been determined. Clinical correlation isessential. Performed By: #### L 500.2500, L100.0100 ####[facility] [address] [place], [address] ECRCL 91.97 ml/min Normal [facility] Comment on above: Performed By: #### L 500.2500, L100.0100 ####[facility] [address] [place], [address] EST GFR - AA 78 mL/min Normal >60 [facility] Comment on above: Result Comment: Afri can Northern Irish GFR Calc Performed By: #### L 500.2500, L100.0100 ####[facility] [address] [place], [address] GAP 7 Normal 5-15 [facility] Comment on above: Performed By: #### L 500.2500, L100.0100 ####[facility] [address] [place], [address] GFR/1.73 sq M.predicted among non-blacks MDRD (S/P/Bld) [Vol rate/Area] 64 mL/min/{1.73_m2} Normal >60 [facility] Comment on above: Result Comment: Non- GFR Calc Performed By: #### L 500.2500, L100.0100 ####[facility] [address] [place], [address] Glucose [Mass/Vol] 196 mg/dL High 74-106 [facility] Comment on above: Result Comment: Fast ing Glucose result greater than or equal to 126 mg/dLsuggests DIABETES MELLITUS per A.D.A. criteria. Performed By: #### L 500.2500, L100.0100 ####[facility] [address] [place], [address] Potassium [Moles/Vol] 4.1 mmol/L Normal 3.5-5.1 [facility] Comment on above: Performed By: #### L 500.2500, L100.0100 ####[facility] [address] [place], [address] Sodium [Moles/Vol] 136 mmol/L Normal 136-145 [facility] Comment on above: Performed By: #### L 500.2500, L100.0100 ####[facility] [address] [place], [address] Urea nitrogen [Mass/Vol] 31 mg/dL High 7-18 [facility] Comment on above: Performed By: #### L 500.2500, L100.0100 ####[facility] [address] [place], [address] Bedside Glucoseon 01-22-2024 FINGERSTICK GLU 224 mg/dL High 74-106 [facility] Comment on above: Result Comment: ANI GEMENT OF PATIENT CARE PER NURSING PROTOCOL Performed By: #### L 501.080 ####[facility] [address] [place], [address] FINGERSTICK GLU 177 mg/dL High 74-106 [facility] Comment on above: Result Comment: ANI GEMENT OF PATIENT CARE PER NURSING PROTOCOL Performed By: #### L 501.080 ####[facility] [address] [place], [address] CBC W/Diff, Automatedon 10-2 -2023 Absolute Lymph 2.23 X10 3/uL Normal 0.83-4.51 [facility] Comment on above: Performed By: #### L 500.2500, L100.0100 ####[facility] [address] [place], [address] Absolute Neut 6.5 X10 3/uL Normal 2.0-7.7 [facility] Comment on above: Performed By: #### L 500.2500, L100.0100 ####[facility] [address] [place], [address] Basophils/100 WBC (Bld) 0.6 % Normal 0-1 [facility] Comment on above: Performed By: #### L 500.2500, L100.0100 ####[facility] [address] [place], [address] Eosinophils/100 WBC (Bld) 3.8 % Normal 0-5 [facility] Comment on above: Performed By: #### L 500.2500, L100.0100 ####[facility] [address] [place], [address] Erythrocyte distribution width (RBC) [Ratio] 17.5 % High 11.6-14.6 [facility] Comment on above: Performed By: #### L 500.2500, L100.0100 ####[facility] [address] [place], [address] Hematocrit (Bld) [Volume fraction] 30.9 % Low 40-54 [facility] Comment on above: Performed By: #### L 500.2500, L100.0100 ####[facility] [address] [place], [address] Hemoglobin (Bld) [Mass/Vol] 9.3 g/dL Low 13.0-16.5 [facility] Comment on above: Performed By: #### L 500.2500, L100.0100 ####[facility] [address] [place], [address] IG% 0.500 Normal 0.0-0.9 [facility] Comment on above: Result Comment: IG% - Immature Granulocytes (promyelocytes, myelocytes andmetamyelocytes) > 1% indicates that a LEFT SHIFT is Present. Performed By: #### L 500.2500, L100.0100 ####[facility] [address] [place], [address] Lymphocytes/100 WBC (Bld) 21.7 % Normal 19-41 [facility] Comment on above: Performed By: #### L 500.2500, L100.0100 ####[facility] [address] [place], [address] MCH (RBC) [Entitic mass] 23.4 pg Low 27.0-32.0 [facility] Comment on above: Performed By: #### L 500.2500, L100.0100 ####[facility] [address] [place], [address] MCHC (RBC) [Mass/Vol] 30.1 g/dL Low 32-36 [facility] Comment on above: Performed By: #### L 500.2500, L100.0100 ####[facility] [address] [place], [address] MCV (RBC) [Entitic vol] 77.6 fL Low 80-94 [facility] Comment on above: Performed By: #### L 500.2500, L100.0100 ####[facility] [address] [place], [address] Monocytes/100 WBC (Bld) 10.7 % High 0-10 [facility] Comment on above: Performed By: #### L 500.2500, L100.0100 ####[facility] [address] [place], [address] Neutrophils/100 WBC (Bld) 62.7 % Normal 47-70 [facility] Comment on above: Performed By: #### L 500.2500, L100.0100 ####[facility] [address] [place], [address] Nucleated RBC (Bld) [#/Vol] 0 10*3/uL Normal 0-5 [facility] Comment on above: Performed By: #### L 500.2500, L100.0100 ####[facility] [address] [place], [address] Platelet mean volume (Bld) [Entitic vol] 9.8 fL Normal 6.2-12.0 [facility] Comment on above: Performed By: #### L 500.2500, L100.0100 ####[facility] [address] [place], [address] Platelets (Bld) [#/Vol] 273 10*3/uL Normal 150-450 [facility] Comment on above: Performed By: #### L 500.2500, L100.0100 ####[facility] [address] [place], [address] RBC (Bld) [#/Vol] 3.98 10*6/uL Low 4.6-6.2 [facility] Comment on above: Performed By: #### L 500.2500, L100.0100 ####[facility] [address] [place], [address] RDW SD 49.5 fl High 35.1-43.9 [facility] Comment on above: Performed By: #### L 500.2500, L100.0100 ####[facility] [address] [place], [address] WBC (Bld) [#/Vol] 10.3 10*3/uL Normal 4.4-11.0 [facility] Comment on above: Performed By: #### L 500.2500, L100.0100 ####[facility] [address] [place], [address] 36on 01-21-2024 36 Patient called to in form me he is in the hospital and will not be able to make his radiology appointment tomorrow. I told patient I will call and cancel for him and gave him the number to call and reschedule when he is ready. Normal [facility] Bedside Glucoseon 01-21-2024 FINGERSTICK GLU 136 mg/dL High 74-106 [facility] Comment on above: Result Comment: ANI GEMENT OF PATIENT CARE PER NURSING PROTOCOL Performed By: #### L 501.080 ####[facility] [address] [place], [address] FINGERSTICK GLU 151 mg/dL High 74-106 [facility] Comment on above: Result Comment: ANI GEMENT OF PATIENT CARE PER NURSING PROTOCOL Performed By: #### L 501.080 ####[facility] [address] [place], [address] FINGERSTICK GLU 152 mg/dL High 74-106 [facility] Comment on above: Result Comment: ANI GEMENT OF PATIENT CARE PER NURSING PROTOCOL Performed By: #### L 501.080 ####[facility] [address] [place], [address] FINGERSTICK GLU 126 mg/dL High 74-106 [facility] Comment on above: Result Comment: ANI BRADFORD OF PATIENT CARE PER NURSING PROTOCOL Performed By: #### L 501.080 ####[facility] [address] [place], [place], [address] CTA Chest W/WO Contraston CTA Chest W/WO Contrast Normal [facility] D-Dimer Quantitative (DVT/PE )on 01-21-2024 D-DIMER QUANT 2.48 FEU/ug/m Invalid Interpretation Code 0.27-0.49 [facility] Comment on above: Result Comment: D-Di tania ELEVATED (>0.49): Additional studies and clinicalassessments are indicated to conclude diagnosis of:Deep Vein Thrombosis (DVT) or Pulmonary Embolism (PE)CRITICAL VALUE CALLED TO QULJMB19/22/24 0323 Hipolito Mitchell.RESULTS READ BACK BY SAME. Performed By: #### L 300.8000 ####[facility] [address] [place], [place], [address] Emergency Department Summary on 01-21-2024 Emergency Department Summary Normal [facility] Ferritinon 01-21-2024 Ferritin [Mass/Vol] 53 ng/mL Normal 26-388 [facility] Comment on above: Performed By: #### L 503.6030, L503.6550 ####[facility] [address] [place], [address] H AND P Exam - Hospitaliston 01-21-2024 H&P Exam - Hospitalist Normal [facility] Hemoglobin A1con 01-21-2024 HbA1c (Bld) [Mass fraction] 8.0 % High 3.8-5.6 [facility] Comment on above: Result Comment: Norm al < 5.7 % Prediabetic 5.7 - 6.4 % Diabetic >or= 6.5 % Please note range changes. Performed By: #### L 501.9985 ####[facility] [address] [place], [place], [address] Iron+Iron Binding Capacityon 01-21-2024 Iron [Mass/Vol] 12 ug/dL Low 65-175 [facility] Comment on above: Performed By: #### L 503.6030, L503.6550 ####[facility] [address] [place], [address] IRON SATURATION 3.5 Low 15.0-55.0 [facility] Comment on above: Performed By: #### L 503.6030, L503.6550 ####[facility] [address] [place], [address] TIBC 347 ug/dL Normal 250-450 [facility] Comment on above: Performed By: #### L 503.6030, L503.6550 ####[facility] [address] [place], [address] Lactic Acidon 01-21-2024 Lactate [Moles/Vol] 1.6 mmol/L Normal 0.4-1.9 [facility] Comment on above: Order Comment: Y Performed By: #### L 503.6005 ####[facility] [address] [place], [address] Legionella Antigen Urineon 1 LEGU Normal [facility] Comment on above: Performed By: #### M 300.4600, M300.4500 ####[facility] [address] [place], [address] RESPIRATORY PANEL MOLECULARo n 01-21-2024 RP PANEL Normal [facility] Comment on above: Performed By: #### M 100.638 ####[facility] [address] [place], [address] Strep pneumoniae Antig(UR,CS F)on 01-21-2024 STPAG Normal [facility] Comment on above: Performed By: #### M 300.4600, M300.4500 ####[facility] [address] [place], [address] Venous Duplex US - Adam Extre mon 01-21-2024 Venous Duplex US - Adam Extrem Normal [facility] 12 Lead EKGon 01-20-2024 12 Lead EKG Normal [facility] BNP,B-Type NATRIURETIC PEPTI Sindy 01-20-2024 Natriuretic peptide B (Bld) [Mass/Vol] 130.8 pg/mL High 0-100 [facility] Comment on above: Performed By: #### L 501.5200, L503.6620 ####[facility] [address] [place], [address] Basic Metabolic Profile (BMP )on 01-20-2024 BUN/CRE 23.4 RATIO High -20 [facility] Comment on above: Order Comment: 'TROP ' Serial specimen #1, #2 or #3: 1 Performed By: #### L 501.4020, L500.2500, L100.0100 ####[facility] [address] [place], [address] CA,Total 9.0 mg/dL Normal 8.5-10.1 [facility] Comment on above: Order Comment: 'TROP ' Serial specimen #1, #2 or #3: 1 Performed By: #### L 501.4020, L500.2500, L100.0100 ####[facility] [address] [place], [address] Chloride [Moles/Vol] 107 mmol/L Normal 98-107 [facility] Comment on above: Order Comment: 'TROP ' Serial specimen #1, #2 or #3: 1 Performed By: #### L 501.4020, L500.2500, L100.0100 ####[facility] [address] [place], [address] CO2 [Moles/Vol] 22.0 mmol/L Normal 21.0-32.0 [facility] Comment on above: Order Comment: 'TROP ' Serial specimen #1, #2 or #3: 1 Performed By: #### L 501.4020, L500.2500, L100.0100 ####[facility] [address] [place], [address] Creatinine [Mass/Vol] 1.24 mg/dL Normal 0.70-1.30 [facility] Comment on above: Order Comment: 'TROP ' Serial specimen #1, #2 or #3: 1 Result Comment: The validity of the calculated GFR GFRAA in patients over70 years has not been determined. Clinical correlation isessential. Performed By: #### L 501.4020, L500.2500, L100.0100 ####[facility] [address] [place], [address] ECRCL 90.85 ml/min Normal [facility] Comment on above: Order Comment: 'TROP ' Serial specimen #1, #2 or #3: 1 Performed By: #### L 501.4020, L500.2500, L100.0100 ####[facility] [address] [place], [address] EST GFR - AA 76 mL/min Normal >60 [facility] Comment on above: Order Comment: 'TROP ' Serial specimen #1, #2 or #3: 1 Result Comment: Afri can [place] GFR Calc Performed By: #### L 501.4020, L500.2500, L100.0100 ####[facility] [address] [place], [address] GAP 6 Normal 5-15 [facility] Comment on above: Order Comment: 'TROP ' Serial specimen #1, #2 or #3: 1 Performed By: #### L 501.4020, L500.2500, L100.0100 ####[facility] [address] [place], [address] GFR/1.73 sq M.predicted among non-blacks MDRD (S/P/Bld) [Vol rate/Area] 63 mL/min/{1.73_m2} Normal >60 [facility] Comment on above: Order Comment: 'TROP ' Serial specimen #1, #2 or #3: 1 Result Comment: Non- GFR Calc Performed By: #### L 501.4020, L500.2500, L100.0100 ####[facility] [address] [place], [address] Glucose [Mass/Vol] 196 mg/dL High 74-106 [facility] Comment on above: Order Comment: 'TROP ' Serial specimen #1, #2 or #3: 1 Result Comment: Fast ing Glucose result greater than or equal to 126 mg/dLsuggests DIABETES MELLITUS per A.D.A. criteria. Performed By: #### L 501.4020, L500.2500, L100.0100 ####[facility] [address] [place], [address] Potassium [Moles/Vol] 4.3 mmol/L Normal 3.5-5.1 [facility] Comment on above: Order Comment: 'TROP ' Serial specimen #1, #2 or #3: 1 Result Comment: Mode rate Hemolysis, Result may be falsely increased. Performed By: #### L 501.4020, L500.2500, L100.0100 ####[facility] [address] [place], [address] Sodium [Moles/Vol] 135 mmol/L Low 136-145 [facility] Comment on above: Order Comment: 'TROP ' Serial specimen #1, #2 or #3: 1 Performed By: #### L 501.4020, L500.2500, L100.0100 ####[facility] [address] [place], [address] Urea nitrogen [Mass/Vol] 29 mg/dL High 7-18 [facility] Comment on above: Order Comment: 'TROP ' Serial specimen #1, #2 or #3: 1 Performed By: #### L 501.4020, L500.2500, L100.0100 ####[facility] [address] [place], [address] CBC W/Diff, Automatedon 10-2 -2023 Absolute Lymph 1.71 X10 3/uL Normal 0.83-4.51 [facility] Comment on above: Performed By: #### L 501.4020, L500.2500, L100.0100 ####[facility] [address] [place], [address] Absolute Neut 7.0 X10 3/uL Normal 2.0-7.7 [facility] Comment on above: Performed By: #### L 501.4020, L500.2500, L100.0100 ####[facility] [address] [place], [address] Basophils/100 WBC (Bld) 0.7 % Normal 0-1 [facility] Comment on above: Performed By: #### L 501.4020, L500.2500, L100.0100 ####[facility] [address] [place], [address] Eosinophils/100 WBC (Bld) 2.9 % Normal 0-5 [facility] Comment on above: Performed By: #### L 501.4020, L500.2500, L100.0100 ####[facility] [address] [place], [address] Erythrocyte distribution width (RBC) [Ratio] 17.1 % High 11.6-14.6 [facility] Comment on above: Performed By: #### L 501.4020, L500.2500, L100.0100 ####[facility] [address] [place], [address] Hematocrit (Bld) [Volume fraction] 31.1 % Low 40-54 [facility] Comment on above: Performed By: #### L 501.4020, L500.2500, L100.0100 ####[facility] [address] [place], [address] Hemoglobin (Bld) [Mass/Vol] 9.5 g/dL Low 13.0-16.5 [facility] Comment on above: Performed By: #### L 501.4020, L500.2500, L100.0100 ####[facility] [address] [place], [address] IG% 0.500 Normal 0.0-0.9 [facility] Comment on above: Result Comment: IG% - Immature Granulocytes (promyelocytes, myelocytes andmetamyelocytes) > 1% indicates that a LEFT SHIFT is Present. Performed By: #### L 501.4020, L500.2500, L100.0100 ####[facility] [address] [place], [address] Lymphocytes/100 WBC (Bld) 16.8 % Low 19-41 [facility] Comment on above: Performed By: #### L 501.4020, L500.2500, L100.0100 ####[facility] [address] [place], [address] MCH (RBC) [Entitic mass] 23.4 pg Low 27.0-32.0 [facility] Comment on above: Performed By: #### L 501.4020, L500.2500, L100.0100 ####[facility] [address] [place], [address] MCHC (RBC) [Mass/Vol] 30.5 g/dL Low 32-36 [facility] Comment on above: Performed By: #### L 501.4020, L500.2500, L100.0100 ####[facility] [address] [place], [address] MCV (RBC) [Entitic vol] 76.6 fL Low 80-94 [facility] Comment on above: Performed By: #### L 501.4020, L500.2500, L100.0100 ####[facility] [address] [place], [address] Monocytes/100 WBC (Bld) 10.6 % High 0-10 [facility] Comment on above: Performed By: #### L 501.4020, L500.2500, L100.0100 ####[facility] [address] [place], [address] Neutrophils/100 WBC (Bld) 68.5 % Normal 47-70 [facility] Comment on above: Performed By: #### L 501.4020, L500.2500, L100.0100 ####[facility] [address] [place], [address] Nucleated RBC (Bld) [#/Vol] 0 10*3/uL Normal 0-5 [facility] Comment on above: Performed By: #### L 501.4020, L500.2500, L100.0100 ####[facility] [address] [place], [address] Platelet mean volume (Bld) [Entitic vol] 9.5 fL Normal 6.2-12.0 [facility] Comment on above: Performed By: #### L 501.4020, L500.2500, L100.0100 ####[facility] [address] [place], [address] Platelets (Bld) [#/Vol] 267 10*3/uL Normal 150-450 [facility] Comment on above: Performed By: #### L 501.4020, L500.2500, L100.0100 ####[facility] [address] [place], [address] RBC (Bld) [#/Vol] 4.06 10*6/uL Low 4.6-6.2 [facility] Comment on above: Performed By: #### L 501.4020, L500.2500, L100.0100 ####[facility] [address] [place], [address] RDW SD 47.4 fl High 35.1-43.9 [facility] Comment on above: Performed By: #### L 501.4020, L500.2500, L100.0100 ####[facility] [address] [place], [address] WBC (Bld) [#/Vol] 10.2 10*3/uL Normal 4.4-11.0 [facility] Comment on above: Performed By: #### L 501.4020, L500.2500, L100.0100 ####[facility] [address] [place], [address] Chest PA and Lateralon 01-19 Chest PA and Lateral Normal [facility] L501.4020on 01-20-2024 TROPONIN-I HS 24 pg/mL Normal 3.0-78.0 [facility] Comment on above: Order Comment: 'TROP ' Serial specimen #1, #2 or #3: 1 Result Comment: Plea se Note: New Test Units and Gender Specific Reference Ranges. For more information see Policy Stat Procedure [place] High Sensitivity Troponin (TNIH) and attachments. Performed By: #### L 501.4020, L500.2500, L100.0100 ####[facility] [address] [place], [address] M100.678on 01-20-2024 M100.678 Pending SARS-CoV-2 (COVID 19) Negative INFLUENZA A Negative INFLUENZA B Negative RSV PCR Negative Normal [facility] Comment on above: Performed By: #### M 100.678 ####[facility] [address] [place], [address] Magnesiumon 01-20-2024 Magnesium [Mass/Vol] 1.7 mg/dL Normal 1.6-2.6 [facility] Comment on above: Result Comment: Mode rate Hemolysis, Result may be falsely increased. Performed By: #### L 501.5200, L503.6620 ####[facility] [address] [place], [place], [address] Office Visit Reporton 2023 Office Visit Report Normal [facility] 36on 01-15-2024 36 Called patient to in form him of his appointment for CTA ordered by Dr. Culp. Patient verbalized understanding appointment schduled for 01/22/2024 at 1045 at the [place] location. Patient instructed to stop eating 4 hours prior to testing and to drink 16oz water 1 hour prior. Patient questioned if we received imaging from [facility]. Will follow up to confirm they are uploaded to PACS. [facility] 36on 01-10-2024 36 [phone] submitted through ev[employer] phone call [facility] CBC W/Diff, Automatedon 12-30 Absolute Lymph 1.87 X10 3/uL Normal 0.83-4.51 [facility] Comment on above: Order Comment: Order Date: 01/10/24Order Info: [id number] - CBCDOrder Info: [id number] - RETIC Performed By: #### L 503.6150, L100.9950, L503.0105, L503.6075, L100.0100, L506.0250, L503.6550 ####[facility] [address] [place], [address] Absolute Neut 5.7 X10 3/uL Normal 2.0-7.7 [facility] Comment on above: Order Comment: Order Date: 01/10/24Order Info: [id number] - CBCDOrder Info: [id number] - RETIC Performed By: #### L 503.6150, L100.9950, L503.0105, L503.6075, L100.0100, L506.0250, L503.6550 ####[facility] [address] [place], [address] Basophils/100 WBC (Bld) 0.8 % Normal 0-1 [facility] Comment on above: Order Comment: Order Date: 01/10/24Order Info: [id number]- - CBCDOrder Info: [id number] - RETIC Performed By: #### L 503.6150, L100.9950, L503.0105, L503.6075, L100.0100, L506.0250, L503.6550 ####[facility] [address] [place], [address] Eosinophils/100 WBC (Bld) 2.6 % Normal 0-5 [facility] Comment on above: Order Comment: Order Date: 01/10/24Order Info: [id number] - CBCDOrder Info: [id number] - RETIC Performed By: #### L 503.6150, L100.9950, L503.0105, L503.6075, L100.0100, L506.0250, L503.6550 ####[facility] [address] [place], [address] Erythrocyte distribution width (RBC) [Ratio] 17.3 % High 11.6-14.6 [facility] Comment on above: Order Comment: Order Date: 01/10/24Order Info: [id number] - CBCDOrder Info: [id number] - RETIC Performed By: #### L 503.6150, L100.9950, L503.0105, L503.6075, L100.0100, L506.0250, L503.6550 ####[facility] [address] [place], [address] Hematocrit (Bld) [Volume fraction] 37.0 % Low 40-54 [facility] Comment on above: Order Comment: Order Date: 01/10/24Order Info: [id number] - CBCDOrder Info: [id number] - RETIC Performed By: #### L 503.6150, L100.9950, L503.0105, L503.6075, L100.0100, L506.0250, L503.6550 ####[facility] [address] [place], [address] Hemoglobin (Bld) [Mass/Vol] 10.7 g/dL Low 13.0-16.5 [facility] Comment on above: Order Comment: Order Date: 01/10/24Order Info: [id number]- - CBCDOrder Info: [id number] - RETIC Performed By: #### L 503.6150, L100.9950, L503.0105, L503.6075, L100.0100, L506.0250, L503.6550 ####[facility] [address] [place], [address] IG% 0.300 Normal 0.0-0.9 [facility] Comment on above: Order Comment: Order Date: 01/10/24Order Info: [id number] - CBCDOrder Info: [id number] - RETIC Result Comment: IG% - Immature Granulocytes (promyelocytes, myelocytes andmetamyelocytes) > 1% indicates that a LEFT SHIFT is Present. Performed By: #### L 503.6150, L100.9950, L503.0105, L503.6075, L100.0100, L506.0250, L503.6550 ####[facility] [address] [place], [address] Lymphocytes/100 WBC (Bld) 21.4 % Normal 19-41 [facility] Comment on above: Order Comment: Order Date: 01/10/24Order Info: 01806-30 - CBCDOrder Info: 4679-7 - RETIC Performed By: #### L 503.6150, L100.9950, L503.0105, L503.6075, L100.0100, L506.0250, L503.6550 ####[facility] [address] [place], [place], [phone] MCH (RBC) [Entitic mass] 22.8 pg Low 27.0-32.0 [facility] Comment on above: Order Comment: Order Date: 01/10/24Order Info: 018- - CBCDOrder Info: 4679-7 - RETIC Performed By: #### L 503.6150, L100.9950, L503.0105, L503.6075, L100.0100, L506.0250, L503.6550 ####[facility] [address] [place], [address] MCHC (RBC) [Mass/Vol] 28.9 g/dL Low 32-36 [facility] Comment on above: Order Comment: Order Date: 01/10/24Order Info: 01806-30 - CBCDOrder Info: 4679-7 - RETIC Performed By: #### L 503.6150, L100.9950, L503.0105, L503.6075, L100.0100, L506.0250, L503.6550 ####[facility] [address] [place], [address] MCV (RBC) [Entitic vol] 78.7 fL Low 80-94 [facility] Comment on above: Order Comment: Order Date: 01/10/24Order Info: 01806-30 - CBCDOrder Info: [id number] - RETIC Performed By: #### L 503.6150, L100.9950, L503.0105, L503.6075, L100.0100, L506.0250, L503.6550 ####[facility] [address] [place], [address] Monocytes/100 WBC (Bld) 9.9 % Normal 0-10 [facility] Comment on above: Order Comment: Order Date: 01/10/24Order Info: 01806-30 - CBCDOrder Info: [id number] - RETIC Performed By: #### L 503.6150, L100.9950, L503.0105, L503.6075, L100.0100, L506.0250, L503.6550 ####[facility] [address] [place], [address] Neutrophils/100 WBC (Bld) 65.0 % Normal 47-70 [facility] Comment on above: Order Comment: Order Date: 01/10/24Order Info: 018- - CBCDOrder Info: 4679-7 - RETIC Performed By: #### L 503.6150, L100.9950, L503.0105, L503.6075, L100.0100, L506.0250, L503.6550 ####[facility] [address] [place], [address] Nucleated RBC (Bld) [#/Vol] 0 10*3/uL Normal 0-5 [facility] Comment on above: Order Comment: Order Date: 01/10/24Order Info: 018- - CBCDOrder Info: 4679-7 - RETIC Performed By: #### L 503.6150, L100.9950, L503.0105, L503.6075, L100.0100, L506.0250, L503.6550 ####[facility] [address] [place], [address] Platelet mean volume (Bld) [Entitic vol] 10.2 fL Normal 6.2-12.0 [facility] Comment on above: Order Comment: Order Date: 01/10/24Order Info: 018- - CBCDOrder Info: 4679-7 - RETIC Performed By: #### L 503.6150, L100.9950, L503.0105, L503.6075, L100.0100, L506.0250, L503.6550 ####[facility] [address] [place], [address] Platelets (Bld) [#/Vol] 306 10*3/uL Normal 150-450 [facility] Comment on above: Order Comment: Order Date: 01/10/24Order Info: 018- - CBCDOrder Info: 4679-7 - RETIC Performed By: #### L 503.6150, L100.9950, L503.0105, L503.6075, L100.0100, L506.0250, L503.6550 ####[facility] [address] [place], [address] RBC (Bld) [#/Vol] 4.70 10*6/uL Normal 4.6-6.2 [facility] Comment on above: Order Comment: Order Date: 01/10/24Order Info: 0184-1 - CBCDOrder Info: 4679-7 - RETIC Performed By: #### L 503.6150, L100.9950, L503.0105, L503.6075, L100.0100, L506.0250, L503.6550 ####[facility] [address] [place], [address] RDW SD 49.7 fl High 35.1-43.9 [facility] Comment on above: Order Comment: Order Date: 01/10/24Order Info: 018- - CBCDOrder Info: 4679-7 - RETIC Performed By: #### L 503.6150, L100.9950, L503.0105, L503.6075, L100.0100, L506.0250, L503.6550 ####[facility] [address] [place], [address] WBC (Bld) [#/Vol] 8.7 10*3/uL Normal 4.4-11.0 [facility] Comment on above: Order Comment: Order Date: 01/10/24Order Info: 0184-1 - CBCDOrder Info: 4679-7 - RETIC Performed By: #### L 503.6150, L100.9950, L503.0105, L503.6075, L100.0100, L506.0250, L503.6550 ####[facility] [address] [place], [address] Ferritinon 01-10-2024 Ferritin [Mass/Vol] 28 ng/mL Normal 26-388 [facility] Comment on above: Order Comment: Order Date: 01/10/24Order Info: 2499-09 - TIBCOrder Info: 2497-06 - FEOrder Info: 2275-07 - FEROrder Info: 2283-10 - FOLSN Performed By: #### L 503.6150, L100.9950, L503.0105, L503.6075, L100.0100, L506.0250, L503.6550 ####[facility] [address] [place], [address] Folates, (Folic Acid)on 12-30 FOLATES 5.30 ng/mL Normal 3.1-55.4 [facility] Comment on above: Order Comment: Order Date: 01/10/24Order Info: 2499-09 - TIBCOrder Info: 2497-06 - FEOrder Info: 2275-07 - FEROrder Info: 2283-10 - FOLSN Performed By: #### L 503.6150, L100.9950, L503.0105, L503.6075, L100.0100, L506.0250, L503.6550 ####[facility] [address] [place], [address] Ironon 01-10-2024 Iron [Mass/Vol] 31 ug/dL Low 65-175 [facility] Comment on above: Order Comment: Order Date: 01/10/24Order Info: 2499-09 - TIBCOrder Info: 2497-06 - FEOrder Info: 2275-07 - FEROrder Info: 2283-10 - FOLSN Performed By: #### L 503.6150, L100.9950, L503.0105, L503.6075, L100.0100, L506.0250, L503.6550 ####[facility] [address] [place], [place], [phone] Iron Binding Capacity,Totalo n 01-10-2024 TIBC 445 ug/dL Normal 250-450 [facility] Comment on above: Order Comment: Order Date: 01/10/24Order Info: 2499-7 - TIBCOrder Info: 2498-4 - FEOrder Info: 2276-4 - FEROrder Info: 2284-8 - FOLSN Performed By: #### L 503.6150, L100.9950, L503.0105, L503.6075, L100.0100, L506.0250, L503.6550 ####[facility] [address] [place], [address] Retic Panelon 01-10-2024 IM RET FRACTION 26.40 High 3.00-15.90 [facility] Comment on above: Order Comment: Order Date: 01/10/24Order Info: 01806-30 - CBCDOrder Info: 4679-7 - RETIC Performed By: #### L 503.6150, L100.9950, L503.0105, L503.6075, L100.0100, L506.0250, L503.6550 ####[facility] [address] [place], [place], [address] RET-HE 22.0 pg Low 30-35 [facility] Comment on above: Order Comment: Order Date: 01/10/24Order Info: 183-04 - CBCDOrder Info: 4679-7 - RETIC Performed By: #### L 503.6150, L100.9950, L503.0105, L503.6075, L100.0100, L506.0250, L503.6550 ####[facility] [address] [place], [place], [phone] Retic Count 2.36 High 0.5-1.5 [facility] Comment on above: Order Comment: Order Date: 01/10/24Order Info: 01806-30 - CBCDOrder Info: 4679-7 - RETIC Performed By: #### L 503.6150, L100.9950, L503.0105, L503.6075, L100.0100, L506.0250, L503.6550 ####[facility] [address] [place], [address] Vitamin B12on 01-10-2024 Cobalamin (Vitamin B12) [Mass/Vol] 510 pg/mL Normal 211-911 [facility] Comment on above: Order Comment: Order Date: 01/10/24Order Info: 2132-9 - B12 Performed By: #### L 503.6150, L100.9950, L503.0105, L503.6075, L100.0100, L506.0250, L503.6550 ####[facility] [address] [place], [address] Office Visiton 01-06-2024 Follow-up visit [id number] Krunal Leos 1965 M Date Provider Department Center 01/06/2024 24589-IFEGOUEWCOZIEL CULP [facility] NRO None No family history on file Level of Service:65385 [place] OFFICE/OUTPATIENT ESTABLISHED MOD MDM 30 MIN Reason for Visit and Comments: New Patient [542] - New stroke 10/02, multiple mini strokes since. No current deficits per patient. Normal [facility] Progress Noteon 01-06-2024 Progress Note History of Present Illness: 58 yo man here for fu stroke and bilateral ICA stenosis. He originally presented 09/2023 for left hemiparesis and was transferred to [facility] from [facility]. He was found to have right [...] episode of left hemiparesis. He went to [facility] and was found to have increased stroke burden of the right hemisphere. Vascular surgery was consulted and no surgical procedure was recommended. He had a 3rd event of left hemiparesis the following week and a CT was done at [place] [facility]. At that time clopidogrel was added (in addition to ASA and Eliquis). The patient returned to normal and was discharged from the ED to home. 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 He is a nonsmoker. He does [...] 2023., Disp: 30 tablet, Rfl: 0 HYDROcodone-acetaminophen (Jordan) 5-325 MG tablet, Take 1 tablet by [...] , Rfl: ergocalciferol (Vitamin D2) 1.25 MG (94874 UT) capsule, Take 1 capsule by mouth [...] Negative. Respirato (more content not included)... Normal [facility] Stress Reporton 01-01-2024 Stress Report Normal [facility] Pulmonary Visit Reporton Pulmonary Visit Report Normal [facility] Office Visit Reporton 2023 Office Visit Report Normal [facility] BNP,B-Type NATRIURETIC PEPTI Sindy 12-12-2023 Natriuretic peptide B (Bld) [Mass/Vol] 92.2 pg/mL Normal 0-100 [facility] Comment on above: Performed By: #### L 500.4050, L501.5200, L100.0100, L503.6620, L506.0400, L501.9520 ####[facility] [address] [place], [address] CBC W/Diff, Automatedon 11-30 Absolute Lymph 1.70 X10 3/uL Normal 0.83-4.51 [facility] Comment on above: Performed By: #### L 500.4050, L501.5200, L100.0100, L503.6620, L506.0400, L501.9520 ####[facility] [address] [place], [address] Absolute Neut 5.8 X10 3/uL Normal 2.0-7.7 [facility] Comment on above: Performed By: #### L 500.4050, L501.5200, L100.0100, L503.6620, L506.0400, L501.9520 ####[facility] [address] [place], [address] Basophils/100 WBC (Bld) 0.8 % Normal 0-1 [facility] Comment on above: Performed By: #### L 500.4050, L501.5200, L100.0100, L503.6620, L506.0400, L501.9520 ####[facility] [address] [place], [address] Eosinophils/100 WBC (Bld) 2.8 % Normal 0-5 [facility] Comment on above: Performed By: #### L 500.4050, L501.5200, L100.0100, L503.6620, L506.0400, L501.9520 ####[facility] [address] [place], [address] Erythrocyte distribution width (RBC) [Ratio] 18.5 % High 11.6-14.6 [facility] Comment on above: Performed By: #### L 500.4050, L501.5200, L100.0100, L503.6620, L506.0400, L501.9520 ####[facility] [address] [place], [address] Hematocrit (Bld) [Volume fraction] 33.3 % Low 40-54 [facility] Comment on above: Performed By: #### L 500.4050, L501.5200, L100.0100, L503.6620, L506.0400, L501.9520 ####[facility] [address] [place], [address] Hemoglobin (Bld) [Mass/Vol] 10.0 g/dL Low 13.0-16.5 [facility] Comment on above: Performed By: #### L 500.4050, L501.5200, L100.0100, L503.6620, L506.0400, L501.9520 ####[facility] [address] [place], [address] IG% 0.500 Normal 0.0-0.9 [facility] Comment on above: Result Comment: IG% - Immature Granulocytes (promyelocytes, myelocytes andmetamyelocytes) > 1% indicates that a LEFT SHIFT is Present. Performed By: #### L 500.4050, L501.5200, L100.0100, L503.6620, L506.0400, L501.9520 ####[facility] [address] [place], [address] Lymphocytes/100 WBC (Bld) 19.6 % Normal 19-41 [facility] Comment on above: Performed By: #### L 500.4050, L501.5200, L100.0100, L503.6620, L506.0400, L501.9520 ####[facility] [address] [place], [address] MCH (RBC) [Entitic mass] 23.9 pg Low 27.0-32.0 [facility] Comment on above: Performed By: #### L 500.4050, L501.5200, L100.0100, L503.6620, L506.0400, L501.9520 ####[facility] [address] [place], [address] MCHC (RBC) [Mass/Vol] 30.0 g/dL Low 32-36 [facility] Comment on above: Performed By: #### L 500.4050, L501.5200, L100.0100, L503.6620, L506.0400, L501.9520 ####[facility] [address] [place], [address] MCV (RBC) [Entitic vol] 79.7 fL Low 80-94 [facility] Comment on above: Performed By: #### L 500.4050, L501.5200, L100.0100, L503.6620, L506.0400, L501.9520 ####[facility] [address] [place], [address] Monocytes/100 WBC (Bld) 9.9 % Normal 0-10 [facility] Comment on above: Performed By: #### L 500.4050, L501.5200, L100.0100, L503.6620, L506.0400, L501.9520 ####[facility] [address] [place], [address] Neutrophils/100 WBC (Bld) 66.4 % Normal 47-70 [facility] Comment on above: Performed By: #### L 500.4050, L501.5200, L100.0100, L503.6620, L506.0400, L501.9520 ####[facility] [address] [place], [address] Nucleated RBC (Bld) [#/Vol] 0 10*3/uL Normal 0-5 [facility] Comment on above: Performed By: #### L 500.4050, L501.5200, L100.0100, L503.6620, L506.0400, L501.9520 ####[facility] [address] [place], [address] Platelet mean volume (Bld) [Entitic vol] 9.9 fL Normal 6.2-12.0 [facility] Comment on above: Performed By: #### L 500.4050, L501.5200, L100.0100, L503.6620, L506.0400, L501.9520 ####[facility] [address] [place], [address] Platelets (Bld) [#/Vol] 274 10*3/uL Normal 150-450 [facility] Comment on above: Performed By: #### L 500.4050, L501.5200, L100.0100, L503.6620, L506.0400, L501.9520 ####[facility] [address] [place], [address] RBC (Bld) [#/Vol] 4.18 10*6/uL Low 4.6-6.2 [facility] Comment on above: Performed By: #### L 500.4050, L501.5200, L100.0100, L503.6620, L506.0400, L501.9520 ####[facility] [address] [place], [address] RDW SD 52.7 fl High 35.1-43.9 [facility] Comment on above: Performed By: #### L 500.4050, L501.5200, L100.0100, L503.6620, L506.0400, L501.9520 ####[facility] [address] [place], [place], [phone] WBC (Bld) [#/Vol] 8.7 10*3/uL Normal 4.4-11.0 [facility] Comment on above: Performed By: #### L 500.4050, L501.5200, L100.0100, L503.6620, L506.0400, L501.9520 ####[facility] [address] [place], [address] Comprehensive Metabolic [facility] 12-12-2023 Albumin [Mass/Vol] 3.2 g/dL Normal 3.2-5.0 [facility] Comment on above: Performed By: #### L 500.4050, L501.5200, L100.0100, L503.6620, L506.0400, L501.9520 ####[facility] [address] [place], [address] Albumin/Globulin [Mass ratio] 0.7 {ratio} Low 0.9-2.4 [facility] Comment on above: Performed By: #### L 500.4050, L501.5200, L100.0100, L503.6620, L506.0400, L501.9520 ####[facility] [address] [place], [address] ALK P 79 U/L Normal 45-117 [facility] Comment on above: Performed By: #### L 500.4050, L501.5200, L100.0100, L503.6620, L506.0400, L501.9520 ####[facility] [address] [place], [address] ALT [Catalytic activity/Vol] 25 U/L Normal 16-61 [facility] Comment on above: Performed By: #### L 500.4050, L501.5200, L100.0100, L503.6620, L506.0400, L501.9520 ####[facility] [address] [place], [address] AST [Catalytic activity/Vol] 27 U/L Normal 15-37 [facility] Comment on above: Performed By: #### L 500.4050, L501.5200, L100.0100, L503.6620, L506.0400, L501.9520 ####[facility] [address] [place], [address] Bilirubin [Mass/Vol] 0.60 mg/dL Normal 0.20-1.00 [facility] Comment on above: Result Comment: For patients on eltrombopag therapy, use of Dimension [place] TBIL is not recommended. Performed By: #### L 500.4050, L501.5200, L100.0100, L503.6620, L506.0400, L501.9520 ####[facility] [address] [place], [address] BUN/CRE 21.7 RATIO High 10-20 [facility] Comment on above: Performed By: #### L 500.4050, L501.5200, L100.0100, L503.6620, L506.0400, L501.9520 ####[facility] [address] [place], [address] CA,Total 9.3 mg/dL Normal 8.5-10.1 [facility] Comment on above: Performed By: #### L 500.4050, L501.5200, L100.0100, L503.6620, L506.0400, L501.9520 ####[facility] [address] [place], [address] Chloride [Moles/Vol] 110 mmol/L High 98-107 [facility] Comment on above: Performed By: #### L 500.4050, L501.5200, L100.0100, L503.6620, L506.0400, L501.9520 ####[facility] [address] [place], [address] CO2 [Moles/Vol] 19.0 mmol/L Low 21.0-32.0 [facility] Comment on above: Performed By: #### L 500.4050, L501.5200, L100.0100, L503.6620, L506.0400, L501.9520 ####[facility] [address] [place], [address] Creatinine [Mass/Vol] 1.20 mg/dL Normal 0.70-1.30 [facility] Comment on above: Result Comment: The validity of the calculated GFR GFRAA in patients over70 years has not been determined. Clinical correlation isessential. Performed By: #### L 500.4050, L501.5200, L100.0100, L503.6620, L506.0400, L501.9520 ####[facility] [address] [place], [address] EST GFR - AA 79 mL/min Normal >60 [facility] Comment on above: Result Comment: Afri can [place] GFR Calc Performed By: #### L 500.4050, L501.5200, L100.0100, L503.6620, L506.0400, L501.9520 ####[facility] [address] [place], [address] GAP 10 Normal 5-15 [facility] Comment on above: Performed By: #### L 500.4050, L501.5200, L100.0100, L503.6620, L506.0400, L501.9520 ####[facility] [address] [place], [address] GFR/1.73 sq M.predicted among non-blacks MDRD (S/P/Bld) [Vol rate/Area] 66 mL/min/{1.73_m2} Normal >60 [facility] Comment on above: Result Comment: Non- GFR Calc Performed By: #### L 500.4050, L501.5200, L100.0100, L503.6620, L506.0400, L501.9520 ####[facility] [address] [place], [address] Globulin (S) [Mass/Vol] 4.9 g/dL High 2.2-4.2 [facility] Comment on above: Performed By: #### L 500.4050, L501.5200, L100.0100, L503.6620, L506.0400, L501.9520 ####[facility] [address] [place], [address] Glucose [Mass/Vol] 155 mg/dL High 74-106 [facility] Comment on above: Result Comment: Fast ing Glucose result greater than or equal to 126 mg/dLsuggests DIABETES MELLITUS per A.D.A. criteria. Performed By: #### L 500.4050, L501.5200, L100.0100, L503.6620, L506.0400, L501.9520 ####[facility] [address] [place], [address] Potassium [Moles/Vol] 3.9 mmol/L Normal 3.5-5.1 [facility] Comment on above: Performed By: #### L 500.4050, L501.5200, L100.0100, L503.6620, L506.0400, L501.9520 ####[facility] [address] [place], [address] Sodium [Moles/Vol] 139 mmol/L Normal 136-145 [facility] Comment on above: Performed By: #### L 500.4050, L501.5200, L100.0100, L503.6620, L506.0400, L501.9520 ####[facility] [address] [place], [address] T PROT 8.1 g/dL Normal 6.4-8.2 [facility] Comment on above: Performed By: #### L 500.4050, L501.5200, L100.0100, L503.6620, L506.0400, L501.9520 ####[facility] [address] [place], [address] Urea nitrogen [Mass/Vol] 26 mg/dL High 7-18 [facility] Comment on above: Performed By: #### L 500.4050, L501.5200, L100.0100, L503.6620, L506.0400, L501.9520 ####[facility] [address] [place], [address] Gastroenterology Visit Repor ton 12-12-2023 Gastroenterology Visit Report Normal [facility] Magnesiumon 12-12-2023 Magnesium [Mass/Vol] 2.1 mg/dL Normal 1.6-2.6 [facility] Comment on above: Performed By: #### L 500.4050, L501.5200, L100.0100, L503.6620, L506.0400, L501.9520 ####[facility] [address] [place], [address] T4 Free Directon 12-12-2023 T4 FREE DIRECT 1.29 ng/dL Normal 0.76-1.46 [facility] Comment on above: Performed By: #### L 500.4050, L501.5200, L100.0100, L503.6620, L506.0400, L501.9520 ####[facility] [address] [place], [address] Thyroid Stim Hormone (TSH)on 12-12-2023 TSH 0.800 uIU/mL Normal 0.358-3.74 0 [facility] Comment on above: Performed By: #### L 500.4050, L501.5200, L100.0100, L503.6620, L506.0400, L501.9520 ####[facility] [address] [place], [address] MR/BMS.BVSon 12-06-2023 MR/BMS.BVS Normal [facility] Endocrinology Visit Reporton 11-27-2023 Endocrinology Visit Report Normal [facility] Bedside Glucoseon 11-18-2023 FINGERSTICK GLU 103 mg/dL Normal 74-106 [facility] Comment on above: Result Comment: ANI BRADFORD OF PATIENT CARE PER NURSING PROTOCOL Performed By: #### L 501.080 ####[facility] [address] [place], [address] Office Visit Reporton 2023 Office Visit Report Normal [facility] 12 Lead EKGon 11-16-2023 12 Lead EKG Normal [facility] Basic Metabolic Profile (BMP )on 11-16-2023 BUN/CRE 18.2 RATIO Normal 10-20 [facility] Comment on above: Order Comment: 'TROP ' Serial specimen #1, #2 or #3: 1 Performed By: #### L 100.0100, L501.4020, L300.4310, L500.2500, L300.3900 ####[facility] [address] [place], [address] CA,Total 8.7 mg/dL Normal 8.5-10.1 [facility] Comment on above: Order Comment: 'TROP ' Serial specimen #1, #2 or #3: 1 Performed By: #### L 100.0100, L501.4020, L300.4310, L500.2500, L300.3900 ####[facility] [address] [place], [address] Chloride [Moles/Vol] 107 mmol/L Normal 98-107 [facility] Comment on above: Order Comment: 'TROP ' Serial specimen #1, #2 or #3: 1 Performed By: #### L 100.0100, L501.4020, L300.4310, L500.2500, L300.3900 ####[facility] [address] [place], [address] CO2 [Moles/Vol] 27.0 mmol/L Normal 21.0-32.0 [facility] Comment on above: Order Comment: 'TROP ' Serial specimen #1, #2 or #3: 1 Performed By: #### L 100.0100, L501.4020, L300.4310, L500.2500, L300.3900 ####[facility] [address] [place], [address] Creatinine [Mass/Vol] 1.37 mg/dL High 0.70-1.30 [facility] Comment on above: Order Comment: 'TROP ' Serial specimen #1, #2 or #3: 1 Result Comment: The validity of the calculated GFR GFRAA in patients over70 years has not been determined. Clinical correlation isessential. Performed By: #### L 100.0100, L501.4020, L300.4310, L500.2500, L300.3900 ####[facility] [address] [place], [address] ECRCL 81.83 ml/min Normal [facility] Comment on above: Order Comment: 'TROP ' Serial specimen #1, #2 or #3: 1 Performed By: #### L 100.0100, L501.4020, L300.4310, L500.2500, L300.3900 ####[facility] [address] [place], [address] EST GFR - AA 68 mL/min Normal >60 [facility] Comment on above: Order Comment: 'TROP ' Serial specimen #1, #2 or #3: 1 Result Comment: Afri can [place] GFR Calc Performed By: #### L 100.0100, L501.4020, L300.4310, L500.2500, L300.3900 ####[facility] [address] [place], [address] GAP 6 Normal 5-15 [facility] Comment on above: Order Comment: 'TROP ' Serial specimen #1, #2 or #3: 1 Performed By: #### L 100.0100, L501.4020, L300.4310, L500.2500, L300.3900 ####[facility] [address] [place], [address] GFR/1.73 sq M.predicted among non-blacks MDRD (S/P/Bld) [Vol rate/Area] 56 mL/min/{1.73_m2} Low >60 [facility] Comment on above: Order Comment: 'TROP ' Serial specimen #1, #2 or #3: 1 Result Comment: Non- GFR Calc Performed By: #### L 100.0100, L501.4020, L300.4310, L500.2500, L300.3900 ####[facility] [address] [place], [address] Glucose [Mass/Vol] 116 mg/dL High 74-106 [facility] Comment on above: Order Comment: 'TROP ' Serial specimen #1, #2 or #3: 1 Result Comment: Fast ing Glucose result from 100 to 125 mg/dLsuggests IMPAIRED HOMEOSTASIS per A.D.A. criteria. Performed By: #### L 100.0100, L501.4020, L300.4310, L500.2500, L300.3900 ####[facility] [address] [place], [address] Potassium [Moles/Vol] 3.9 mmol/L Normal 3.5-5.1 [facility] Comment on above: Order Comment: 'TROP ' Serial specimen #1, #2 or #3: 1 Performed By: #### L 100.0100, L501.4020, L300.4310, L500.2500, L300.3900 ####[facility] [address] [place], [address] Sodium [Moles/Vol] 140 mmol/L Normal 136-145 [facility] Comment on above: Order Comment: 'TROP ' Serial specimen #1, #2 or #3: 1 Performed By: #### L 100.0100, L501.4020, L300.4310, L500.2500, L300.3900 ####[facility] [address] [place], [address] Urea nitrogen [Mass/Vol] 25 mg/dL High 7-18 [facility] Comment on above: Order Comment: 'TROP ' Serial specimen #1, #2 or #3: 1 Performed By: #### L 100.0100, L501.4020, L300.4310, L500.2500, L300.3900 ####[facility] [address] [place], [address] CBC W/Diff, Automatedon - Absolute Lymph 2.30 X10 3/uL Normal 0.83-4.51 [facility] Comment on above: Performed By: #### L 100.0100, L501.4020, L300.4310, L500.2500, L300.3900 ####[facility] [address] [place], [address] Absolute Neut 7.5 X10 3/uL Normal 2.0-7.7 [facility] Comment on above: Performed By: #### L 100.0100, L501.4020, L300.4310, L500.2500, L300.3900 ####[facility] [address] [place], [address] Basophils/100 WBC (Bld) 0.7 % Normal 0-1 [facility] Comment on above: Performed By: #### L 100.0100, L501.4020, L300.4310, L500.2500, L300.3900 ####[facility] [address] [place], [address] Eosinophils/100 WBC (Bld) 2.8 % Normal 0-5 [facility] Comment on above: Performed By: #### L 100.0100, L501.4020, L300.4310, L500.2500, L300.3900 ####[facility] [address] [place], [address] Erythrocyte distribution width (RBC) [Ratio] 18.7 % High 11.6-14.6 [facility] Comment on above: Performed By: #### L 100.0100, L501.4020, L300.4310, L500.2500, L300.3900 ####[facility] [address] [place], [address] Hematocrit (Bld) [Volume fraction] 37.2 % Low 40-54 [facility] Comment on above: Performed By: #### L 100.0100, L501.4020, L300.4310, L500.2500, L300.3900 ####[facility] [address] [place], [address] Hemoglobin (Bld) [Mass/Vol] 11.3 g/dL Low 13.0-16.5 [facility] Comment on above: Performed By: #### L 100.0100, L501.4020, L300.4310, L500.2500, L300.3900 ####[facility] [address] [place], [address] IG% 1.100 High 0.0-0.9 [facility] Comment on above: Result Comment: IG% - Immature Granulocytes (promyelocytes, myelocytes andmetamyelocytes) > 1% indicates that a LEFT SHIFT is Present. Performed By: #### L 100.0100, L501.4020, L300.4310, L500.2500, L300.3900 ####[facility] [address] [place], [address] Lymphocytes/100 WBC (Bld) 19.9 % Normal 19-41 [facility] Comment on above: Performed By: #### L 100.0100, L501.4020, L300.4310, L500.2500, L300.3900 ####[facility] [address] [place], [address] MCH (RBC) [Entitic mass] 24.0 pg Low 27.0-32.0 [facility] Comment on above: Performed By: #### L 100.0100, L501.4020, L300.4310, L500.2500, L300.3900 ####[facility] [address] [place], [address] MCHC (RBC) [Mass/Vol] 30.4 g/dL Low 32-36 [facility] Comment on above: Performed By: #### L 100.0100, L501.4020, L300.4310, L500.2500, L300.3900 ####[facility] [address] [place], [address] MCV (RBC) [Entitic vol] 79.0 fL Low 80-94 [facility] Comment on above: Performed By: #### L 100.0100, L501.4020, L300.4310, L500.2500, L300.3900 ####[facility] [address] [place], [address] Monocytes/100 WBC (Bld) 10.6 % High 0-10 [facility] Comment on above: Performed By: #### L 100.0100, L501.4020, L300.4310, L500.2500, L300.3900 ####[facility] [address] [place], [address] Neutrophils/100 WBC (Bld) 64.9 % Normal 47-70 [facility] Comment on above: Performed By: #### L 100.0100, L501.4020, L300.4310, L500.2500, L300.3900 ####[facility] [address] [place], [address] Nucleated RBC (Bld) [#/Vol] 0 10*3/uL Normal 0-5 [facility] Comment on above: Performed By: #### L 100.0100, L501.4020, L300.4310, L500.2500, L300.3900 ####[facility] [address] [place], [address] Platelet mean volume (Bld) [Entitic vol] 9.3 fL Normal 6.2-12.0 [facility] Comment on above: Performed By: #### L 100.0100, L501.4020, L300.4310, L500.2500, L300.3900 ####[facility] [address] [place], [address] Platelets (Bld) [#/Vol] 259 10*3/uL Normal 150-450 [facility] Comment on above: Performed By: #### L 100.0100, L501.4020, L300.4310, L500.2500, L300.3900 ####[facility] [address] [place], [address] RBC (Bld) [#/Vol] 4.71 10*6/uL Normal 4.6-6.2 [facility] Comment on above: Performed By: #### L 100.0100, L501.4020, L300.4310, L500.2500, L300.3900 ####[facility] [address] [place], [address] RDW SD 53.2 fl High 35.1-43.9 [facility] Comment on above: Performed By: #### L 100.0100, L501.4020, L300.4310, L500.2500, L300.3900 ####[facility] [address] [place], [address] WBC (Bld) [#/Vol] 11.6 10*3/uL High 4.4-11.0 [facility] Comment on above: Performed By: #### L 100.0100, L501.4020, L300.4310, L500.2500, L300.3900 ####[facility] [address] [place], [address] Chest 1 Viewon 11-16-2023 Chest 1 View Normal [facility] Emergency Department Summary on 11-16-2023 Emergency Department Summary Normal [facility] L501.4020on 11-16-2023 TROPONIN-I HS 16 pg/mL Normal 3.0-78.0 [facility] Comment on above: Order Comment: 'TROP ' Serial specimen #1, #2 or #3: 1 Result Comment: Plea se Note: New Test Units and Gender Specific Reference Ranges. For more information see Policy Stat Procedure [place] High Sensitivity Troponin (TNIH) and attachments. Performed By: #### L 100.0100, L501.4020, L300.4310, L500.2500, L300.3900 ####[facility] [address] [place], [address] Partial Thromboplast Timeon 11-16-2023 aPTT Coag (Bld) [Time] 28.5 s Normal 24.1-36.2 [facility] Comment on above: Performed By: #### L 100.0100, L501.4020, L300.4310, L500.2500, L300.3900 ####[facility] [address] [place], [address] Prothrombin Time w/INRon INR Coag (PPP) [Relative time] 1.2 {INR} Normal [facility] Comment on above: Performed By: #### L 100.0100, L501.4020, L300.4310, L500.2500, L300.3900 ####[facility] [address] [place], [address] PT Coag (PPP) [Time] 15.6 s High 11.7-14.9 [facility] Comment on above: Performed By: #### L 100.0100, L501.4020, L300.4310, L500.2500, L300.3900 ####[facility] [address] [place], [address] STROKE Brain/Head without Co nton 11-16-2023 STROKE Brain/Head without Cont Normal [facility] STROKE CTA Head AND Neck W/C onon 11-16-2023 STROKE CTA Head AND Neck W/Con Normal [facility] Alcohol, Blood (Medical)-Ser umon 11-14-2023 SERUM ETOH < 3.0 Normal [facility] Comment on above: Result Comment: The serum:whole blood ethanol ratio is approximately 1.14and varies slightly with hematocrit.Medical Alcohol reference interval and critical value innon-tolerant individuals; 50 - 100 Impairment 100 Intoxication 100 - 250 Severe Poisoning 250 - 400 Deep/possible fatal coma Performed By: #### L 501.6023, L501.9985, L506.0250, L501.9100 ####[facility] [address] [place], [address] Bedside Glucoseon 11-14-2023 FINGERSTICK GLU 126 mg/dL High 74-106 [facility] Comment on above: Result Comment: ANI GEMENT OF PATIENT CARE PER NURSING PROTOCOL Performed By: #### L 501.080 ####[facility] [address] [place], [address] FINGERSTICK GLU 91 mg/dL Normal 74-106 [facility] Comment on above: Result Comment: ANI GEMENT OF PATIENT CARE PER NURSING PROTOCOL Performed By: #### L 501.080 ####[facility] [address] [place], [address] FINGERSTICK GLU 143 mg/dL High 74-106 [facility] Comment on above: Result Comment: ANI GEMENT OF PATIENT CARE PER NURSING PROTOCOL Performed By: #### L 501.080 ####[facility] [address] [place], [address] Brain without Contraston Brain without Contrast Normal [facility] Carotid Duplex Ultrasoundon 11-14-2023 Carotid Duplex Ultrasound Normal [facility] Consultation - Surgicalon Consultation - Surgical Normal [facility] Discharge Instructionon 10-30 Discharge Instruction Normal [facility] Folates, (Folic Acid)on 10-30 FOLATES 5.80 ng/mL Normal 3.1-55.4 [facility] Comment on above: Order Comment: Has P atient had X-rays with Contrast this admission? NN Performed By: #### L 501.9520, L501.9985, L506.0250, L501.9100 ####[facility] [address] [place], [address] Hemoglobin A1con 11-14-2023 HbA1c (Bld) [Mass fraction] 7.8 % High 3.8-5.6 [facility] Comment on above: Result Comment: Norm al < 5.7 % Prediabetic 5.7 - 6.4 % Diabetic >or= 6.5 % Please note range changes. Performed By: #### L 501.9520, L501.9985, L506.0250, L501.9100 ####[facility] [address] [place], [address] Lipid Profileon 11-14-2023 Cholesterol [Mass/Vol] 125 mg/dL Normal 200 [facility] Comment on above: Order Comment: Comme nts: NPO at [place] prior to lipid panel Result Comment: <200 mg/dL Desirable 200-240 mg/dL Borderline >240 mg/dL High Risk Performed By: #### L 500.4100 ####[facility] [address] [place], [address] Cholesterol in HDL [Mass/Vol] 41 mg/dL Normal [facility] Comment on above: Order Comment: Comme nts: NPO at [place] prior to lipid panel Result Comment: The drugs N-Acetylcysteine and Metamizole may falselydepress this assay. Reference Range HDL <40 mg/dL Low HDL Cholesterol HDL >or= 60 mg/dL High HDL Cholesterol Performed By: #### L 500.4100 ####[facility] [address] [place], [address] Cholesterol in LDL [Mass/Vol] 56 mg/dL Normal 0-130 [facility] Comment on above: Order Comment: Comme nts: NPO at [place] prior to lipid panel Performed By: #### L 500.4100 ####[facility] [address] [place], [address] Cholesterol in VLDL [Mass/Vol] 28 mg/dL Normal 5-40 [facility] Comment on above: Order Comment: Comme nts: NPO at [place] prior to lipid panel Performed By: #### L 500.4100 ####[facility] [address] [place], [address] Triglyceride [Mass/Vol] 140 mg/dL Normal [facility] Comment on above: Order Comment: Comme nts: NPO at [place] prior to lipid panel Result Comment: The drugs N-Acetylcysteine and Metamizole may falselydepress this assay.Serum Triglycerides Reference Interval Normal <150 mg/dL Borderline high 150 - 199 mg/dL High 200 - 499 mg/dL Very High > or = 500 mg/dL Performed By: #### L 500.4100 ####[facility] [address] [place], [address] MR/CON.PCM.NEon 11-14-2023 MR/CON.PCM.NE Normal [facility] Thyroid Stim Hormone (TSH)on 11-14-2023 TSH 3.910 uIU/mL High 0.358-3.74 0 [facility] Comment on above: Order Comment: Has P atient had X-rays with Contrast this admission? NN Performed By: #### L 501.9520, L501.9985, L506.0250, L501.9100 ####[facility] [address] [place], [address] Vitamin B12on 11-14-2023 Cobalamin (Vitamin B12) [Mass/Vol] 340 pg/mL Normal 211-911 [facility] Comment on above: Performed By: #### L 503.0105 ####[facility] [address] [place], [address] Basic Metabolic Profile (BMP )on 11-13-2023 BUN/CRE 21.8 RATIO High 10-20 [facility] Comment on above: Order Comment: 'TROP ' Serial specimen #1, #2 or #3: 1 Performed By: #### L 500.2500, L300.3900, L100.0100, L501.4020 ####[facility] [address] [place], [address] CA,Total 8.6 mg/dL Normal 8.5-10.1 [facility] Comment on above: Order Comment: 'TROP ' Serial specimen #1, #2 or #3: 1 Performed By: #### L 500.2500, L300.3900, L100.0100, L501.4020 ####[facility] [address] [place], [address] Chloride [Moles/Vol] 103 mmol/L Normal 98-107 [facility] Comment on above: Order Comment: 'TROP ' Serial specimen #1, #2 or #3: 1 Performed By: #### L 500.2500, L300.3900, L100.0100, L501.4020 ####[facility] [address] [place], [address] CO2 [Moles/Vol] 22.0 mmol/L Normal 21.0-32.0 [facility] Comment on above: Order Comment: 'TROP ' Serial specimen #1, #2 or #3: 1 Performed By: #### L 500.2500, L300.3900, L100.0100, L501.4020 ####[facility] [address] [place], [address] Creatinine [Mass/Vol] 1.56 mg/dL High 0.70-1.30 [facility] Comment on above: Order Comment: 'TROP ' Serial specimen #1, #2 or #3: 1 Result Comment: The validity of the calculated GFR GFRAA in patients over70 years has not been determined. Clinical correlation isessential. Performed By: #### L 500.2500, L300.3900, L100.0100, L501.4020 ####[facility] [address] [place], [address] ECRCL 72.64 ml/min Normal [facility] Comment on above: Order Comment: 'TROP ' Serial specimen #1, #2 or #3: 1 Performed By: #### L 500.2500, L300.3900, L100.0100, L501.4020 ####[facility] [address] [place], [address] EST GFR - AA 59 mL/min Low >60 [facility] Comment on above: Order Comment: 'TROP ' Serial specimen #1, #2 or #3: 1 Result Comment: Afri can [place] GFR Calc Performed By: #### L 500.2500, L300.3900, L100.0100, L501.4020 ####[facility] [address] [place], [address] GAP 8 Normal 5-15 [facility] Comment on above: Order Comment: 'TROP ' Serial specimen #1, #2 or #3: 1 Performed By: #### L 500.2500, L300.3900, L100.0100, L501.4020 ####[facility] [address] [place], [address] GFR/1.73 sq M.predicted among non-blacks MDRD (S/P/Bld) [Vol rate/Area] 49 mL/min/{1.73_m2} Low >60 [facility] Comment on above: Order Comment: 'TROP ' Serial specimen #1, #2 or #3: 1 Result Comment: Non- GFR Calc Performed By: #### L 500.2500, L300.3900, L100.0100, L501.4020 ####[facility] [address] [place], [address] Glucose [Mass/Vol] 258 mg/dL High 74-106 [facility] Comment on above: Order Comment: 'TROP ' Serial specimen #1, #2 or #3: 1 Result Comment: Gluc ose result greater than or equal to 200 mg/dLsuggests DIABETES MELLITUS per A.D.A. criteria. Performed By: #### L 500.2500, L300.3900, L100.0100, L501.4020 ####[facility] [address] [place], [address] Potassium [Moles/Vol] 4.9 mmol/L Normal 3.5-5.1 [facility] Comment on above: Order Comment: 'TROP ' Serial specimen #1, #2 or #3: 1 Performed By: #### L 500.2500, L300.3900, L100.0100, L501.4020 ####[facility] [address] [place], [address] Sodium [Moles/Vol] 133 mmol/L Low 136-145 [facility] Comment on above: Order Comment: 'TROP ' Serial specimen #1, #2 or #3: 1 Performed By: #### L 500.2500, L300.3900, L100.0100, L501.4020 ####[facility] [address] [place], [address] Urea nitrogen [Mass/Vol] 34 mg/dL High 7-18 [facility] Comment on above: Order Comment: 'TROP ' Serial specimen #1, #2 or #3: 1 Performed By: #### L 500.2500, L300.3900, L100.0100, L501.4020 ####[facility] [address] [place], [address] Bedside Glucoseon 11-13-2023 FINGERSTICK GLU 256 mg/dL High 74-106 [facility] Comment on above: Result Comment: ANI BRADFORD OF PATIENT CARE PER NURSING PROTOCOL Performed By: #### L 501.080 ####[facility] [address] [place], [address] CBC W/Diff, Automatedon 10-30 SMEAR COMMENT SCANNED Normal [facility] Comment on above: Performed By: #### L 500.2500, L300.3900, L100.0100, L501.4020 ####[facility] [address] [place], [address] CTA Head AND Neck W/ Contras ton 11-13-2023 CTA Head AND Neck W/ Contrast Normal [facility] Chest PA and Lateralon 11-12 Chest PA and Lateral Normal [facility] Emergency Department Summary on 11-13-2023 Emergency Department Summary Normal [facility] H AND P Exam - Hospitaliston 11-13-2023 H&P Exam - Hospitalist Normal [facility] L501.4020on 11-13-2023 TROPONIN-I HS 13 pg/mL Normal 3.0-78.0 [facility] Comment on above: Order Comment: 'TROP ' Serial specimen #1, #2 or #3: 1 Result Comment: Kodi monterroso Note: New Test Units and Gender Specific Reference Ranges. For more information see Policy Stat Procedure [place] High Sensitivity Troponin (TNIH) and attachments. Performed By: #### L 500.2500, L300.3900, L100.0100, L501.4020 ####[facility] [address] [place], [address] Partial Thromboplast Timeon 11-13-2023 aPTT Coag (Bld) [Time] 27.8 s Normal 24.1-36.2 [facility] Comment on above: Order Comment: REDRA W. PREVIOUS SPECIMEN REJECTED DUE TOCLOTTED SPECIMEN. 11/13/232051. Performed By: #### L 300.4310, L300.3900 ####[facility] [address] [place], [address] Prothrombin Time w/INRon INR Coag (PPP) [Relative time] 1.2 {INR} Normal [facility] Comment on above: Order Comment: REDRA W. PREVIOUS SPECIMEN REJECTED DUE TOCLOTTED SPECIMEN. 11/13/232051. Performed By: #### L 300.4310, L300.3900 ####[facility] [address] [place], [address] PT Coag (PPP) [Time] 14.8 s Normal 11.7-14.9 [facility] Comment on above: Order Comment: REDRA W. PREVIOUS SPECIMEN REJECTED DUE TOCLOTTED SPECIMEN. 11/13/232051. Performed By: #### L 300.4310, L300.3900 ####[facility] [address] [place], [address] INR Normal [facility] Comment on above: Result Comment: This specimen has been REJECTED due to Laboratory criteria:Clotted.ED-EITAN has been notified of need of recollection.11/13/232050 Kandice Rayaman Performed By: #### L 500.2500, L300.3900, L100.0100, L501.4020 ####[facility] [address] [place], [address] PROTIME Normal 11.7-14.9 [facility] Comment on above: Result Comment: This specimen has been REJECTED due to Laboratory criteria:Clotted.ED-EITAN has been notified of need of recollection.11/13/232050 Kandice Escobedo Performed By: #### L 500.2500, L300.3900, L100.0100, L501.4020 ####[facility] [address] [place], [address] Bedside Glucoseon 11-04-2023 FINGERSTICK GLU 170 mg/dL High 74-106 [facility] Comment on above: Result Comment: ANI GEMENT OF PATIENT CARE PER NURSING PROTOCOL Performed By: #### L 501.080 ####[facility] [address] [place], [address] Fluor Guidance for Spine Inj on 11-04-2023 Fluor Guidance for Spine Inj Normal [facility] MR/POSTOP.ANEon 11-04-2023 MR/POSTOP.ANE Normal [facility] MR/KBUREABV3br 11-04-2023 MR/POSTOPAN2 Normal [facility] Operative Reporton Operative Report Normal [facility] 6 Minute Walk Teston 024 6 Minute Walk Test Normal [facility] 36on 10-17-2023 36 Per [place], patient h as been placed in recall Normal [facility] Cardiology Visit Reporton Cardiology Visit Report Normal [facility] AWAIS + Protein Elect, Serumon 10-16-2023 Albumin [Mass/Vol] 3.6 g/dL Normal 2.9-4.4 [facility] Comment on above: Order Comment: N Performed By: #### L 3600.4030, L3100.3425 ####[facility] [address] [place], [address] Albumin/Globulin [Mass ratio] 0.9 {ratio} Normal 0.7-1.7 [facility] Comment on above: Order Comment: N Performed By: #### L 3600.4030, L3100.3425 ####[facility] [address] [place], [address] UBRFE-3-ZKLL 0.3 g/dL Normal 0.0-0.4 [facility] Comment on above: Order Comment: N Performed By: #### L 3600.4030, L3100.3425 ####[facility] [address] [place], [address] OATAV-0-DDFG 1.0 g/dL Normal 0.4-1.0 [facility] Comment on above: Order Comment: N Performed By: #### L 3600.4030, L3100.3425 ####[facility] [address] [place], [address] BETA GLOBULIN 1.2 g/dL Normal 0.7-1.3 [facility] Comment on above: Order Comment: N Performed By: #### L 3600.4030, L3100.3425 ####[facility] [address] [place], [address] GAMMA GLOBULIN 2.0 g/dL High 0.4-1.8 [facility] Comment on above: Order Comment: N Performed By: #### L 3600.4030, L3100.3425 ####[facility] [address] [place], [address] Globulin (S) [Mass/Vol] 4.5 g/dL Abnormal 2.2-3.9 [facility] Comment on above: Order Comment: N Performed By: #### L 3600.4030, L3100.3425 ####[facility] [address] [place], [address] AWAIS RESULT,S Comment Normal . [facility] Comment on above: Order Comment: N Result Comment: No m onoclonality detected. Performed By: #### L 3600.4030, L3100.3425 ####[facility] [address] [place], [address] IMMUNOGLOB A QN 304 mg/dL Normal 90-386 [facility] Comment on above: Order Comment: N Performed By: #### L 3600.4030, L3100.3425 ####[facility] [address] [place], [address] IMMUNOGLOB G QN 1968 mg/dL High 603-1613 [facility] Comment on above: Order Comment: N Performed By: #### L 3600.4030, L3100.3425 ####[facility] [address] [place], [address] IMMUNOGLOB M QN 209 mg/dL High 20-172 [facility] Comment on above: Order Comment: N Performed By: #### L 3600.4030, L3100.3425 ####[facility] [address] [place], [address] M-Aaron Not Observed Normal Not Observed [facility] Comment on above: Order Comment: N Performed By: #### L 3600.4030, L3100.3425 ####[facility] [address] [place], [address] NOTE: Comment Normal . [facility] Comment on above: Order Comment: N Result Comment: Prot ein electrophoresis scan will follow via computer,mail, or electrolysis operator delivery. Performed By: #### L 3600.4030, L3100.3425 ####[facility] [address] [place], [place], [address] Protein [Mass/Vol] 8.1 g/dL Normal 6.0-8.5 [facility] Comment on above: Order Comment: N Performed By: #### L 3600.4030, L3100.3425 ####[facility] [address] [place], [address] Immunofixation Urineon 10-15 AWAIS Urine Comment Normal . [facility] Comment on above: Order Comment: N Result Comment: No m onoclonality detected.Performed at: [facility] [address] [id number] Director: Chance Morales PhD, Phone: [phone] Performed By: #### L 3600.4030, L3100.3425 ####[facility] [address] [place], [address] 36on 10-15-2023 36 [place] -- per Dr. Arnel sierra's 10/04/23 consult note, patient is to have a repeat of his carotid US in 6 months for close surveillance; can you please place patient in recall as well as an order for a CU for April 2024? Normal [facility] Neurology Visit Reporton Neurology Visit Report [facility] [facility] MR/BMS.BVSon 10-08-2023 MR/BMS.BVS Normal [facility] Cisco Lambda Light Chainson 10-06-2023 FR KAPPA LT CHN 79.0 mg/L Abnormal 3.3-19.4 [facility] Comment on above: Order Comment: Test( s) 407632-Zzv. B1, Whole Bloodwas developed and its performance characteristicsdetermined by [employer]. It has not been cleared or approvedby the Food and Drug Administration. Performed By: #### L 506.0250, L3300.8000, L500.4100, L501.4700, L503.0105, L3130.0010 ####[facility] [address] [place], [address] FR LAMBDA LT CH 46.8 mg/L Abnormal 5.7-26.3 [facility] Comment on above: Order Comment: Test( s) 118666-Wlc. B1, Whole Bloodwas developed and its performance characteristicsdetermined by [employer]. It has not been cleared or approvedby the Food and Drug Administration. Performed By: #### L 506.0250, L3300.8000, L500.4100, L501.4700, L503.0105, L3130.0010 ####[facility] [address] [place], [address] KAPPA/LAMBDA % 1.69 Abnormal 0.26-1.65 [facility] Comment on above: Order Comment: Test( s) [id number]-Rhd. B1, Whole Bloodwas developed and its performance characteristicsdetermined by [employer]. It has not been cleared or approvedby the Food and Drug Administration. Performed By: #### L 506.0250, L3300.8000, L500.4100, L501.4700, L503.0105, L3130.0010 ####[facility] [address] [place], [address] Vitamin B1, Thiamineon 10-05 VIT B1 THIAMINE 128.1 nmol/L Normal 66.5-200.0 [facility] Comment on above: Order Comment: Test( s) 369191-Axj. B1, Whole Bloodwas developed and its performance characteristicsdetermined by [employer] [employer]. It has not been cleared or approvedby the Food and Drug Administration. Result Comment: Perf ormed at: - [address] [id number] Director: Chance Morales PhD, Phone: [phone] at: [facility] [address] [id number] Director: Rhina Norris MD, Phone: [phone] Performed By: #### L 506.0250, L3300.8000, L500.4100, L501.4700, L503.0105, L3130.0010 ####[facility] [address] [place], [address] CBC (HEMOGRAM)on 10-05-2023 Erythrocyte distribution width (RBC) [Ratio] 17.7 % High 11.5-15.0 [facility] Comment on above: Performed By: #### L AB294 ####Event Sales Assistant: RADHA SIMMONS ([id number])[facility])[address] [place] [address] Hematocrit (Bld) [Volume fraction] 36.7 % Low 40.0-52.0 [facility] Comment on above: Performed By: #### L AB294 ####Event Sales Assistant: RADHA SIMMONS ([id number])[facility])[address] [place] [address] Hemoglobin (Bld) [Mass/Vol] 11.3 g/dL Low 13.0-18.0 [facility] Comment on above: Performed By: #### L AB294 ####Event Sales Assistant: RADHA SIMMONS ([id number])[facility])[address] [place] [address] MCH (RBC) [Entitic mass] 23.3 pg Low 26.0-34.0 [facility] Comment on above: Performed By: #### L AB294 ####Event Sales Assistant: RADHA SIMMONS ([id number])[facility])[address] [place] [address] MCHC 30.8 % Normal 30.5-36.0 [facility] Comment on above: Performed By: #### L AB294 ####Event Sales Assistant: RADHA SIMMONS ([id number])[facility])[address] [place] [address] MCV (RBC) [Entitic vol] 75.7 fL Low 77.0-99.0 S [facility] Comment on above: Performed By: #### L AB294 ####Event Sales Assistant: RADHA SIMMONS ([id number])[facility] ([facility])[address] [place] [address] Platelet mean volume (Bld) [Entitic vol] 10.1 fL Normal 9.0-12.7 [facility] Comment on above: Performed By: #### L AB294 ####Event Sales Assistant: RADHA SIMMONS ([id number])[facility] ([facility])[address] [place] [address] Platelets (Bld) [#/Vol] 221 10*3/uL Normal 140-440 [facility] Comment on above: Performed By: #### L AB294 ####Event Sales Assistant: RADHA SIMMONS ([id number])[facility] ([facility])[address] [place] [address] RBC (Bld) [#/Vol] 4.85 10*6/uL Normal 4.40-5.90 [facility] Comment on above: Performed By: #### L AB294 ####Event Sales Assistant: RADHA SIMMONS ([id number])[facility] ([facility])[address] [place] [address] WBC (Bld) [#/Vol] 9.9 10*3/uL Normal 3.6-10.7 [facility] Comment on above: Performed By: #### L AB294 ####Event Sales Assistant: RADHA SIMMONS ([id number])[facility] ([facility])[address] [place] [address] CBC panel Auto (Bld)Ordered By: Russel Sanchez on 10-05-2023 Erythrocyte distribution width (RBC) [Ratio] 17.7 % High 11.5 - 15.0 % [facility] Hematocrit (Bld) [Volume fraction] 36.7 % Low 40.0 - 52.0 % [facility] Hemoglobin (Bld) [Mass/Vol] 11.3 g/dL Low 13.0 - 18.0 g/dL [facility] Interpretation and review of laboratory results Abnormal [facility] MCH (RBC) [Entitic mass] 23.3 pg Low 26.0 - 34.0 pg [facility] MCHC (RBC) [Mass/Vol] 30.8 % 30.5 - 36.0 % [facility] MCV (RBC) [Entitic vol] 75.7 fL Low 77.0 - 99.0 fL [facility] Platelet mean volume (Bld) [Entitic vol] 10.1 fL 9.0 - 12.7 fL [facility] Platelets (Bld) [#/Vol] 221 10*3/uL 140 - 440 10*3/uL [facility] RBC (Bld) [#/Vol] 4.85 10*6/uL 4.40 - 5.90 10*6/uL [facility] WBC (Bld) [#/Vol] 9.9 10*3/uL 3.6 - 10.7 10*3/uL [facility] COMPREHENSIVE METABOLIC PANE Julio César 10-05-2023 Albumin [Mass/Vol] 4.1 g/dL Normal 3.5-5.0 [facility] Comment on above: Performed By: #### L AB17 ####Event Sales Assistant: RADHA SIMMONS ([id number])[facility])[address] [place] [address] ALP [Catalytic activity/Vol] 101 U/L Normal 38-126 [facility] Comment on above: Performed By: #### L AB17 ####Event Sales Assistant: RADHA SIMMONS ([id number])[facility] ([facility])[address] [place] [address] ALT [Catalytic activity/Vol] 21 U/L Normal 0-49 [facility] Comment on above: Performed By: #### L AB17 ####Event Sales Assistant: RADHA SIMMONS ([id number])[facility] ([facility])[address] [place] [address] Anion gap [Moles/Vol] 12 mmol/L Normal 3-13 [facility] Comment on above: Performed By: #### L AB17 ####Event Sales Assistant: RADHA SIMMONS ([id number])[facility] ([facility])[address] [place] [address] AST [Catalytic activity/Vol] 29 U/L Normal 15-46 [facility] Comment on above: Performed By: #### L AB17 ####Event Sales Assistant: RADHA SIMMONS ([id number])[facility])[address] [place] [address] Bilirubin [Mass/Vol] 1.2 mg/dL Normal 0.2-1.3 [facility] Comment on above: Performed By: #### L AB17 ####Event Sales Assistant: RADHA SIMMONS ([id number])[facility])[address] [place] [address] Calcium [Mass/Vol] 9.0 mg/dL Normal 8.4-10.4 [facility] Comment on above: Performed By: #### L AB17 ####Event Sales Assistant: RADHA SIMMONS ([phone])[facility])[address] [place] [address] Chloride [Moles/Vol] 102 mmol/L Normal 98-107 [facility] Comment on above: Performed By: #### L AB17 ####Event Sales Assistant: RADHA SIMMONS ([phone])[facility])[address] [place] [address] CO2 [Moles/Vol] 20 mmol/L Low 22-30 [facility] Comment on above: Performed By: #### L AB17 ####Event Sales Assistant: RADHA SIMMONS ([id number])[facility])[address] [place] [address] Creatinine [Mass/Vol] 0.89 mg/dL Normal 0.66-1.25 [facility] Comment on above: Performed By: #### L AB17 ####Event Sales Assistant: RADHA SIMMONS ([id number])[facility])[address] [place] [address] GLOMERULAR FILTRATION RATE ML/MIN/1.73 SQ M.PREDICTED >90.0 Normal >60.0 [facility] Comment on above: Result Comment: Calc ulation based on the Chronic Kidney Disease Epidemiology Collaboration (CKD-EPI) equation refit without adjustment for race Performed By: #### L AB17 ####Event Sales Assistant: RADHA SIMMONS ([id number])[facility] ([facility])[address] [place] [address] Glucose [Mass/Vol] 217 mg/dL High 70-100 [facility] Comment on above: Performed By: #### L AB17 ####Event Sales Assistant: RADHA SIMMONS ([id number])[facility] ([facility])[address] [place] [address] Potassium [Moles/Vol] 4.3 mmol/L Normal 3.5-5.1 [facility] Comment on above: Performed By: #### L AB17 ####Event Sales Assistant: RADHA SIMMONS ([id number])[facility])[address] [place] [address] Protein [Mass/Vol] 8.0 g/dL Normal 6.3-8.2 [facility] Comment on above: Performed By: #### L AB17 ####Event Sales Assistant: RADHA SIMMONS ([id number])[facility] ([facility])[address] [place] [address] Sodium [Moles/Vol] 134 mmol/L Low 135-145 [facility] Comment on above: Performed By: #### L AB17 ####Event Sales Assistant: RADHA SIMMONS ([id number])[facility] ([facility])[address] [place] [address] Urea nitrogen [Mass/Vol] 20 mg/dL Normal 9-20 [facility] Comment on above: Performed By: #### L AB17 ####Event Sales Assistant: RADHA SIMMONS ([id number])[facility] ([facility])[address] [place] [address] Comprehensive metabolic 1998 panelon 10-05-2023 Albumin [Mass/Vol] 4.1 g/dL 3.5 - 5.0 g/dL [facility] ALP [Catalytic activity/Vol] 101 U/L 38 - 126 U/L [facility] ALT [Catalytic activity/Vol] 21 U/L 0 - 49 U/L [facility] Anion gap [Moles/Vol] 12 mmol/L 3 - 13 mmol/L [facility] AST [Catalytic activity/Vol] 29 U/L 15 - 46 U/L [facility] Bilirubin [Mass/Vol] 1.2 mg/dL 0.2 - 1 .3 mg/dL [facility] Calcium [Mass/Vol] 9.0 mg/dL 8.4 - 10. 4 mg/dL [facility] Chloride [Moles/Vol] 102 mmol/L 98 - 10 7 mmol/L [facility] CO2 [Moles/Vol] 20 mmol/L Low 22 - 30 mmol/L [facility] Creatinine [Mass/Vol] 0.89 mg/dL 0.66 - 1.25 mg/dL [facility] GFR/1.73 sq M.predicted MDRD (S/P/Bld) [Vol rate/Area] - PINF [facility] Comment on above: Calculation based on the Chronic Kidney Disease Epidemiology Collaboration (CKD-EPI) equation refit without adjustment for race Glucose [Mass/Vol] 217 mg/dL High 70 - 100 mg/dL [facility] Interpretation and review of laboratory results Abnormal [facility] Potassium [Moles/Vol] 4.3 mmol/L 3.5 - 5.1 mmol/L [facility] Protein [Mass/Vol] 8.0 g/dL 6.3 - 8.2 g/dL [facility] Sodium [Moles/Vol] 134 mmol/L Low 135 - 145 mmol/L [facility] Urea nitrogen [Mass/Vol] 20 mg/dL 9 - 20 mg/dL [facility] ECG 12-LEADon 10-05-2023 ECG 12-LEAD IMPRESSION: Sinus rhythm Left ventricular hypertrophy Anterior Q waves, possibly due to LVH Electronically Signed On 10-05-2023 14:51:39 EDT by Lisa Fernandez [facility] IDNon 10-05-2023 IDN The patient is Moder ately Stable - Low risk of patient condition declining or worsening The patient's goals for the shift include The clinical goals for the shift include Over the shift, the patient did not make progress toward the following goals. Barriers to progression include . Recommendations to address these barriers include . Patient discharged. [facility] IDN The patient is Moder [...] address these barriers include reorient frequently. Normal [facility] [email or web address] [facility] Laboratory - Chemistry and C hemistry - challengeon 10-05-2023 Glucose [Mass/Vol] 215 mg/dL High 70 - 100 mg/dL [facility] [email or web address] Comment on above: Caregiver Notified; Glucose [Mass/Vol] 226 mg/dL High 70 - 100 mg/dL [facility] [email or web address] Comment on above: Caregiver Notified; No Panel InformationOrdered By: Lisa Fernandez on 10-05-2023 Heart Rate 77 bpm [facility] Work Phone: P [place] 12 degrees [facility] [email or web address] Work Phone: MN Interval 160 ms [facility] Work Phone: QRS [place] -16 degrees [facility] [email or web address] Work Phone: QRSD Interval 113 ms [facility] Work Phone: QT Interval 401 ms [facility] Work Phone: QTC Interval 453 ms [facility] [email or web address] Work Phone: T Wave [place] 16 degrees [facility] [email or web address] Work Phone: [facility] Work Phone: No Panel Informationon 10-04 Sinus rhythm Left ventricular hypertrophy Anterior Q waves, possibly due to LVH Electronically Signed On 10-05-2023 14:51:39 EDT by Lisa Fernandez CV Lisa Patton MD - 10/05/2023 IMPRESSION: Sinus rhythm Left ventricular hypertrophy Anterior Q waves, possibly due to LVH Electronically Signed On 10-05-2023 14:51:39 EDT by Lisa Fernandez [facility] Interpretation and review of laboratory results Abnormal [facility] [email or web address] Performed by: [facility], [address] [place] [address] CLIA ID: [id number] [facility] [email or web address] [facility] Interpretation and review of laboratory results Abnormal [facility] [email or web address] Performed by: [facility], [address] [place] [address] CLIA ID: [id number] [facility] Nursing Noteon 10-05-2023 Nursing Note Patient discharged a t this time. Patient alert and oriented, reviewed discharge instructions with patient and daughter. PIV removed, tele removed. Normal [facility] Progress Noteon 10-05-2023 Progress Note Nutrition rescreen completed. Chart reviewed. Patient to be monitored and followed by the diet pharmacy order entry technician. Dietitian available upon request. Normal [facility] BASIC METABOLIC PANELon Anion gap [Moles/Vol] 11 mmol/L Normal 3-13 [facility] Comment on above: Performed By: #### L AB15 ####Event Sales Assistant: RADHA SIMMONS ([id number])[facility])[address] [place] [address] Calcium [Mass/Vol] 9.3 mg/dL Normal 8.4-10.4 [facility] Comment on above: Performed By: #### L AB15 ####Event Sales Assistant: RADHA SIMMONS ([id number])[facility])[address] [place] [address] Chloride [Moles/Vol] 105 mmol/L Normal 98-107 [facility] Comment on above: Performed By: #### L AB15 ####Event Sales Assistant: RADHA SIMMONS ([id number])[facility])[address] [place] [address] [place] CO2 [Moles/Vol] 19 mmol/L Low 22-30 [facility] Comment on above: Performed By: #### L AB15 ####Event Sales Assistant: RADHA SIMMONS ([phone])[facility])[address] [place] [address] [place] Creatinine [Mass/Vol] 0.77 mg/dL Normal 0.66-1.25 [facility] Comment on above: Performed By: #### L AB15 ####Event Sales Assistant: RADHA SIMMONS ([phone])[facility])[address] [place] [address] GLOMERULAR FILTRATION RATE ML/MIN/1.73 SQ M.PREDICTED >90.0 Normal >60.0 [facility] Comment on above: Result Comment: Calc ulation based on the Chronic Kidney Disease Epidemiology Collaboration (CKD-EPI) equation refit without adjustment for race Performed By: #### L AB15 ####Event Sales Assistant: RADHA SIMMONS ([id number])[facility] ([facility])[address] [place] [address] Glucose [Mass/Vol] 177 mg/dL High 70-100 [facility] Comment on above: Performed By: #### L AB15 ####Event Sales Assistant: RADHA SIMMONS ([id number])[facility] ([facility])[address] [place] [address] Potassium [Moles/Vol] 4.4 mmol/L Normal 3.5-5.1 [facility] Comment on above: Performed By: #### L AB15 ####Event Sales Assistant: RADHA SIMMONS ([id number])[facility] ([facility])[address] [place] [address] Sodium [Moles/Vol] 134 mmol/L Low 135-145 [facility] Comment on above: Performed By: #### L AB15 ####Event Sales Assistant: RADHA SIMMONS ([id number])[facility])[address] [place] [address] Urea nitrogen [Mass/Vol] 17 mg/dL Normal 9-20 [facility] Comment on above: Performed By: #### L AB15 ####Event Sales Assistant: RADHA SIMMONS ([id number])[facility])[address] [place] [address] Basic metabolic 1998 panelon 10-04-2023 Anion gap [Moles/Vol] 11 mmol/L 3 - 13 mmol/L [facility] Calcium [Mass/Vol] 9.3 mg/dL 8.4 - 10. 4 mg/dL [facility] Chloride [Moles/Vol] 105 mmol/L 98 - 10 7 mmol/L [facility] CO2 [Moles/Vol] 19 mmol/L Low 22 - 30 mmol/L [facility] Creatinine [Mass/Vol] 0.77 mg/dL 0.66 - 1.25 mg/dL [facility] GFR/1.73 sq M.predicted MDRD (S/P/Bld) [Vol rate/Area] - PINF [facility] Comment on above: Calculation based on the Chronic Kidney Disease Epidemiology Collaboration (CKD-EPI) equation refit without adjustment for race Glucose [Mass/Vol] 177 mg/dL High 70 - 100 mg/dL [facility] Interpretation and review of laboratory results Abnormal [facility] Potassium [Moles/Vol] 4.4 mmol/L 3.5 - 5.1 mmol/L [facility] Sodium [Moles/Vol] 134 mmol/L Low 135 - 145 mmol/L [facility] Urea nitrogen [Mass/Vol] 17 mg/dL 9 - 20 mg/dL [facility] CARECOORDon 10-04-2023 [facility] Care Managment Initi al Assessment Date: 10/04/2023 Patient Name: Krunal Leos : 1965 Patient Information Source of Information: Patient Cognition/Language: WFL - Within Functional Limits Permission given to speak with patient help desk representative/caregiver as indicated: Confirmation of Payer with patient/family: Yes Payer Name: [employer] : No Confirmation of Primary Care Physician: [...] 0 x 3. [facility] with CVA/TIA. Vascular and Neurology have been consulted. Needs carotid US. Anticipate home with no needs when stable.. . Gris Keith RN Normal [facility] CBC (HEMOGRAM)on 10-04-2023 Erythrocyte distribution width (RBC) [Ratio] 17.9 % High 11.5-15.0 [facility] Comment on above: Performed By: #### L AB294 #### Event Sales Assistant: RADHA SIMMONS ([id number]) [facility]) [address] [place] [address] Hematocrit (Bld) [Volume fraction] 39.6 % Low 40.0-52.0 [facility] Comment on above: Performed By: #### L AB294 #### Event Sales Assistant: RADHA SIMMONS ([id number]) [address] Hemoglobin (Bld) [Mass/Vol] 11.3 g/dL Low 13.0-18.0 [facility] Comment on above: Performed By: #### L AB294 #### Event Sales Assistant: RADHA SIMMONS ([id number]) [facility]) [address] [place] [address] MCH (RBC) [Entitic mass] 23.7 pg Low 26.0-34.0 [facility] Comment on above: Performed By: #### L AB294 #### Event Sales Assistant: RADHA SIMMONS ([id number]) [address] MCHC 28.5 % Low 30.5-36.0 [facility] Comment on above: Performed By: #### L AB294 #### Event Sales Assistant: RADHA SIMMONS ([phone]) [facility] [address] [place] [address] MCV (RBC) [Entitic vol] 83.2 fL Normal 77.0-99.0 [facility] Comment on above: Performed By: #### L AB294 #### Event Sales Assistant: RADHA SIMMONS ([id number]) [facility] ([facility]) [address] [place] [address] Platelet mean volume (Bld) [Entitic vol] 9.5 fL Normal 9.0-12.7 [facility] Comment on above: Performed By: #### L AB294 #### Event Sales Assistant: RADHA SIMMONS ([id number]) [facility] ([facility]) [address] [place] [address] Platelets (Bld) [#/Vol] 201 10*3/uL Normal 140-440 [facility] Comment on above: Performed By: #### L AB294 #### Event Sales Assistant: RADHA SIMMONS ([id number]) [facility] ([facility]) [address] [place] [address] RBC (Bld) [#/Vol] 4.76 10*6/uL Normal 4.40-5.90 [facility] Comment on above: Performed By: #### L AB294 #### Event Sales Assistant: RADHA SIMMONS ([id number]) [facility] ([facility]) [address] [place] [address] WBC (Bld) [#/Vol] 8.3 10*3/uL Normal 3.6-10.7 [facility] Comment on above: Performed By: #### L AB294 #### Event Sales Assistant: RADHA SIMMONS ([phone]) [facility]) [address] [place] [address] CBC panel Auto (Bld)Ordered By: Eduin Brar on 10-04-2023 Erythrocyte distribution width (RBC) [Ratio] 17.9 % High 11.5 - 15.0 % [facility] Hematocrit (Bld) [Volume fraction] 39.6 % Low 40.0 - 52.0 % [facility] Hemoglobin (Bld) [Mass/Vol] 11.3 g/dL Low 13.0 - 18.0 g/dL [facility] Interpretation and review of laboratory results Abnormal [facility] MCH (RBC) [Entitic mass] 23.7 pg Low 26.0 - 34.0 pg [facility] MCHC (RBC) [Mass/Vol] 28.5 % Low 30.5 - 36.0 % [facility] MCV (RBC) [Entitic vol] 83.2 fL 77.0 - 99.0 fL [facility] Platelet mean volume (Bld) [Entitic vol] 9.5 fL 9.0 - 12.7 fL [facility] Platelets (Bld) [#/Vol] 201 10*3/uL 140 - 440 10*3/uL [facility] RBC (Bld) [#/Vol] 4.76 10*6/uL 4.40 - 5.90 10*6/uL [facility] WBC (Bld) [#/Vol] 8.3 10*3/uL 3.6 - 10.7 10*3/uL [facility] Consulton 10-04-2023 Consult Inpatient consult to Endovascular Neurology-- Consult performed by: Mey Loya APRN - [facility] Consult ordered by: Raphael Stone MD Reason for consult: vertebbral artery occlusion/ stenosis History Of Present Illness Krunal Leos is a 58 y.o. male presenting with left face and hand weakness in setting of chronic dizziness. Pt does have history of atrial fibrillation on Eliquis. Pt reports roasterman episodic room spinning with diaphoresis that lasts [...] and symmetric in all four extremities. Coordination Oikoli-he-kqhl, rapid alternating movements and uryy-kg-neua normal bilaterally without dysmetria. Awake and alert [...] intervention indicated (more content not included)... Normal [facility] Consult INITIAL CONSULT NOTE . STROKE SERVICE Patient Name: Krunal Leos Patient : 1965 Acct: [id number] Date of Admission: 10/03/2023 Room/Bed: [facility] A PCP: RADHA KHAN History of Present Ilness: 58 y.o. is man with the chief Complaint of: transferred from [place] for further evaluation of severe cerebrovascular disease [...] 40 abd NS at 50 BP med [facility] Patient feeling much better not active complaints [...] 5 mg, 5 mg, Oral, [facility], Michael Rico MD, 5 mg at 10/04/23 [...] place Me (more content not included)... Normal [facility] Consult ----- ----- Attestation signed by Suzy [...] of Eliquis last night - follow [facility] service evaluation - further plans to follow [...] ?F) SpO2: (more content not included)... Normal [facility] [facility] HEMOGLOBIN A1Con 10-04-2023 Glucose [Mass/Vol] 177 mg/dL Normal [facility] Comment on above: Performed By: #### L AB90 ####Event Sales Assistant: RADHA SIMMONS ([phone])[address] HbA1c (Bld) [Mass fraction] 7.8 % High <5.7 [facility] Comment on above: Result Comment: Norm al less than 5.7% Prediabetes 5.7% to 6.4% Diabetes 6.5% or higher --HgbA1C levels may not be accurate in patients who have renal disease, received recent blood transfusions, are anemic, or who have dyshemoglobinemia. Performed By: #### L AB90 ####Event Sales Assistant: RADHA SIMMONS ([phone])[address] LIPID PANELon 10-04-2023 Cholesterol [Mass/Vol] 147 mg/dL Normal <200 [facility] Comment on above: Performed By: #### L [id number], LAB18 ####Event Sales Assistant: RADHA SIMMONS ([phone])[facility])[address] [place] [address] Cholesterol in HDL [Mass/Vol] 27 mg/dL Low 40-60 [facility] Comment on above: Performed By: #### L [id number], LAB18 ####Event Sales Assistant: RADHA SIMMONS ([phone])[facility])[address] [place] [address] Cholesterol.total/Rebecca sterol in HDL [Mass ratio] 5 {ratio} Normal [facility] Comment on above: Result Comment: Ref Range: < 3 Low Risk for CHD 3-6 Mod Risk for CHD > 6 High Risk for CHD Performed By: #### L [id number], LAB18 ####Event Sales Assistant: RADHA SIMMONS ([phone])[facility])[address] [place] [address] LOW DENSITY LIPOPROTEIN 41 mg/dL Normal 0-<100 [facility] Comment on above: Performed By: #### L [id number], LAB18 ####Event Sales Assistant: RADHA SIMMONS ([phone])[facility])[address] [place] [address] Triglyceride [Mass/Vol] 397 mg/dL High <150 [facility] Comment on above: Performed By: #### L [id number], LAB18 ####Event Sales Assistant: RADHA SIMMONS ([phone])[facility])[address] [place] [address] Laboratory - Chemistry and C hemistry - challengeon 10-04-2023 Glucose [Mass/Vol] 221 mg/dL High 70 - 100 mg/dL [facility] Glucose [Mass/Vol] 157 mg/dL High 70 - 100 mg/dL [facility] Troponin I.cardiac [Mass/Vol] ng/mL NINF - 0.034 ng/mL [facility] Glucose [Mass/Vol] 162 mg/dL High 70 - 100 mg/dL [facility] Troponin I.cardiac [Mass/Vol] ng/mL NINF - 0.034 ng/mL [facility] Glucose [Mass/Vol] 193 mg/dL High 70 - 100 mg/dL [facility] Average glucose Estimated from glycated hemoglobin (Bld) [Mass/Vol] 177 mg/dL [facility] Laboratory - Coagulationon 0 10-04-2023 aPTT Coag (PPP) [Time] 27.3 s 20.0 - 30.5 s [facility] INR Coag (PPP) [Relative time] 1.0 {INR} 0.9 - 1.1 [facility] Comment on above: Recommended Anticoag ulant Therapy: [...] 10.9 s 9.0 - 1 2.0 s [facility] Laboratory - Hematology and Cell countson 10-04-2023 HbA1c (Bld) [Mass fraction] 7.8 % High [facility] - 5.7 % [facility] Comment on above: Normal less than 5.7 % Prediabetes 5.7% to 6.4% Diabetes 6.5% or higher --HgbA1C levels may not be accurate in patients who have renal disease, received recent blood transfusions, are anemic, or who have dyshemoglobinemia. Lipid 1996 panelon Cholesterol [Mass/Vol] 147 mg/dL [facility] mg/dL [facility] Cholesterol in HDL [Mass/Vol] 27 mg/dL Low 40 - 60 mg/dL [facility] Cholesterol in LDL [Mass/Vol] 41 mg/dL 0 - <100 [facility] Cholesterol.total/Rebecca sterol in HDL [Mass ratio] 5 {ratio} [facility] Comment on above: Ref Range: < 3 Low Risk for CHD 3-6 Mod Risk for CHD > 6 High Risk for CHD Interpretation and review of laboratory results Abnormal [facility] Triglyceride [Mass/Vol] 397 mg/dL High [facility] - 150 mg/dL [facility] No Panel Informationon 10-03 Interpretation and review of laboratory results Abnormal [facility] Performed by: [facility], [address] [place] [address], [facility] [address] CLIA ID: [id number] [facility] Interpretation and review of laboratory results Abnormal [facility] Performed by: [facility], [address] [place] [address], [facility] [address] CLIA ID: [id number] [facility] Interpretation and review of laboratory results Normal [facility] Addendum by Analia Zamudio MD on 10/04/2023 [...] and heterogeneous plaque. Subclavian has turbulent flow. Partner Details A carvalho scale, color Doppler imaging and spectral Doppler analysis ultrasound was performed. During the study longitudinal and transverse views were obtained. Pulsed wave doppler was performed. The exam was performed with the patient in the supine position. Overall the study quality was adequate. Study was technically difficult due to: acoustic shadowing and body habitus. [facility] [email or web address] Interpretation and review of laboratory results Abnormal [facility] Performed by: [facility], [address] [place] [address] CLIA ID: [id number] [facility] Interpretation and review of laboratory results Abnormal [facility] Performed by: [facility], [address] [place] [address] CLIA ID: [id number] [facility] Interpretation and review of laboratory results Abnormal [facility] No Panel InformationOrdered By: Analia Zamudio [...] 23.1 cm/s [facility] Work Phone: [phone] Left ICA dist PSV 69.7 cm/s [...] Work Phone: Left vertebral EDV 6.00 cm/s [facility] Work Phone: Left vertebral PSV 27.1 cm/s [facility] Work Phone: Right CCA dist EDV 22.9 cm/s [facility] Work Phone: Right cca dist PSV 120.8 cm/s [facility] Work Phone: Right CCA mid EDV 26.50 cm/s [facility] Work Phone: Right CCA mid PSV 108.10 cm/s [facility] Work Phone: Right CCA prox EDV 28.0 cm/s [facility] Work Phone: Right CCA prox PSV 161.8 cm/s [facility] Work Phone: Right ICA dist EDV 24.7 cm/s [facility] Work Phone: Right ICA dist PSV 78.9 cm/s [facility] Work Phone: Right ICA mid EDV 30.1 cm/s [facility] Work Phone: Right ICA mid PSV 97.5 cm/s [facility] Work Phone: Right ICA prox EDV 16.0 cm/s [facility] [email or web address] Work Phone: Right ICA prox PSV 74.3 cm/s [facility] Work Phone: Right ICA/CCA PSV 0.90 [facility] Work Phone: Right subclavian mid EDV 9.7 cm/s [facility] Work Phone: Right subclavian mid PSV 66.0 cm/s [facility] Work Phone: Right vertebral EDV 12.00 cm/s [facility] Work Phone: Right vertebral PSV 47.5 cm/s [facility] Work Phone: PROTIME AND APTTon aPTT Coag (Bld) [Time] 27.3 s Normal 20.0-30.5 [facility] Comment on above: Performed By: #### L [id number] ####Event Sales Assistant: RADHA SIMMONS ([phone])[facility] ([facility])[address] [place] [address] INR Coag (PPP) [Relative time] 1.0 {INR} Normal 0.9-1.1 [facility] Comment on above: Result Comment: Luciano mmended [...] prevent Myocardial Infarction Performed By: #### L [id number] ####Event Sales Assistant: RADHA SIMMONS ([phone])[facility] ([facility])[address] [place] [address] [place] PT Coag (PPP) [Time] 10.9 s Normal 9.0-12.0 [facility] Comment on above: Performed By: #### L [id number] ####Event Sales Assistant: RADHA SIMMONS ([phone])[facility] ([facility])[address] [place] [address] [place] TROPONIN Ion 10-04-2023 Troponin I.cardiac [Mass/Vol] ng/mL Normal <0.034 [facility] Comment on above: Result Comment: DAPHNE R COMMENTS: Patients with high levels of Biotin oral intake (ie >5 mg/day) may have falsely decreased Troponin levels. Performed By: #### L [id number], LAB18 ####Event Sales Assistant: RADHA SIMMONS ([phone])[facility] ([facility])[address] [place] [address] [place] TROPONIN, WITH SERIAL REFLEX on 10-04-2023 Troponin I.cardiac [Mass/Vol] ng/mL Normal <0.034 [facility] Comment on above: Result Comment: DAPHNE Low COMMENTS: Patients with high levels of Biotin oral intake (ie >5 mg/day) may have falsely decreased Troponin levels. Performed By: #### L [id number] ####Event Sales Assistant: RADHA SIMMONS ([phone])[facility] ([facility])[address] [place] [address] Troponin I.cardiac [Mass/Vol ]on 10-04-2023 Interpretation and review of laboratory results Normal [facility] Patients with high l evels of Biotin oral intake (ie >5 mg/day) may have falsely decreased Troponin levels. [facility] Interpretation and review of laboratory results Normal [facility] Patients with high l evels of Biotin oral intake (ie >5 mg/day) may have falsely decreased Troponin levels. [facility] .Auto Diffon 10-03-2023 Basophil, Absolute 0.1 10 3/mcL Normal 0.0-0.2 [facility] ([place]) Comment on above: Performed By: #### M G, GFR, ADIFF, ANEU, CBC, CMP ####[address] [place], [place] [address] Basophils/100 WBC (Bld) 1.0 % Normal 0.0-2.5 [facility] ([place] Comment on above: Performed By: #### M G, GFR, ADIFF, ANEU, CBC, CMP ####[address] [place], [place] [address] Eosinophil, Absolute 0.4 10 3/mcL Normal 0.0-0.4 [facility] ([place]) Comment on above: Performed By: #### M G, GFR, ADIFF, ANEU, CBC, CMP ####[address] [place], [place] [address] Eosinophils/100 WBC (Bld) 5.1 % Normal 0.0-7.0 [facility] ([place]) Comment on above: Performed By: #### M G, GFR, ADIFF, ANEU, CBC, CMP ####[address] [place], [place] [address] Lymphocyte, Absolute 1.6 10 3/mcL Normal 0.8-3.9 [facility] ([place]) Comment on above: Performed By: #### M G, GFR, ADIFF, ANEU, CBC, CMP ####[address] [place], [place] [address] Lymphocytes/100 WBC (Bld) 20.4 % Normal 10.0-50.0 [facility] ([place]) Comment on above: Performed By: #### M G, GFR, ADIFF, ANEU, CBC, CMP ####[address] [place], [place] [address] Monocyte, Absolute 0.9 10 3/mcL Normal 0.2-1.0 [facility] ([place]) Comment on above: Performed By: #### M G, GFR, ADIFF, ANEU, CBC, CMP ####[address] [place], [place] [address] Monocytes/100 WBC (Bld) 11.5 % Normal 1.7-13.0 [facility] ([place]) Comment on above: Performed By: #### M G, GFR, ADIFF, ANEU, CBC, CMP ####[address] [place], [place] [address] Neutrophils/100 WBC (Bld) 62.0 % Normal 37.0-80.0 [facility] ([place]) Comment on above: Performed By: #### M G, GFR, ADIFF, ANEU, CBC, CMP ####[address] [place], [place] [address] .GFRon 10-03-2023 GFR Non- 72 ml/min/1.73sqm Normal [facility] ([place]) Comment on above: Result Comment: GFR Population [...] GFR, ADIFF, ANEU, CBC, CMP ####[address] [place], [place] [address] GFR 87 ml/min/1.73sqm Normal [facility] ([place]) Comment on above: Result Comment: GFR Population [...] GFR, ADIFF, ANEU, CBC, CMP ####[address] [place], [place] [address] .NEUABSon 10-03-2023 Neutrophil, Absolute 4.7 10 3/mcL Normal 2.9-6.2 [facility] ([place]) Comment on above: Performed By: #### M G, GFR, ADIFF, ANEU, CBC, CMP ####[address] [place], [place] [address] CBCon 10-03-2023 Erythrocyte distribution width (RBC) [Ratio] 18.3 % High 11.5-14.5 [facility] ([place]) Comment on above: Performed By: #### M G, GFR, ADIFF, ANEU, CBC, CMP ####[address] [place], [place] [address] Hematocrit (Bld) [Volume fraction] 32.0 % Low 42.0-52.0 [facility] ([place] Comment on above: Performed By: #### M G, GFR, ADIFF, ANEU, CBC, CMP ####[address] [place], [place] [address] Hgb 10.5 G/dL Low 14.0-18.0 [facility] ([place]) Comment on above: Performed By: #### M G, GFR, ADIFF, ANEU, CBC, CMP ####[address] [place], [place] [address] MCH (RBC) [Entitic mass] 24.5 pg Low 27.0-31.2 [facility] ([place]) Comment on above: Performed By: #### M G, GFR, ADIFF, ANEU, CBC, CMP ####[address] [place], [place] [address] MCHC 32.9 G/dL Normal 31.8-35.4 [facility] ([place] Comment on above: Performed By: #### M G, GFR, ADIFF, ANEU, CBC, CMP ####[address] [place], [place] [address] MCV (RBC) [Entitic vol] 74.3 fL Low 80.0-94.0 [facility] [place] Comment on above: Performed By: #### M G, GFR, ADIFF, ANEU, CBC, CMP ####[address] [place], [place] [address] Platelet 211 10 3/mcL Normal 130-400 [facility] ([place]) Comment on above: Performed By: #### M G, GFR, ADIFF, ANEU, CBC, CMP ####[address] [place], [place] [address] Platelet mean volume (Bld) [Entitic vol] 7.6 fL Normal 7.4-10.4 [facility] ([place]) Comment on above: Performed By: #### M G, GFR, ADIFF, ANEU, CBC, CMP ####[address] [place], [place] [address] RBC 4.31 10 6/mcL Normal 4.04-6.13 [facility] ([place]) Comment on above: Performed By: #### M G, GFR, ADIFF, ANEU, CBC, CMP ####[address] [place], [place] [address] WBC 7.6 10 3/mcL Normal 4.6-10.8 [facility] ([place]) Comment on above: Performed By: #### M G, GFR, ADIFF, ANEU, CBC, CMP ####[address] [place], [place] [address] CMPon 10-03-2023 Albumin Level 3.1 G/dL Low 3.4-4.8 [facility] ([place]) Comment on above: Performed By: #### M G, GFR, ADIFF, ANEU, CBC, CMP ####[address] [place], [place] [address] Albumin/Globulin [Mass ratio] 0.8 {ratio} Low 1.1-2.5 [facility] ([place] Comment on above: Performed By: #### M G, GFR, ADIFF, ANEU, CBC, CMP ####[address] [place], [place] [address] ALP [Catalytic activity/Vol] 93 U/L Normal 40-135 [facility] ([place]) Comment on above: Performed By: #### M G, GFR, ADIFF, ANEU, CBC, CMP ####[address] [place], [place] [address] ALT [Catalytic activity/Vol] 20 U/L Normal 16-63 [facility] ([place]) Comment on above: Performed By: #### M G, GFR, ADIFF, ANEU, CBC, CMP ####[address] [place], [place] [address] AST [Catalytic activity/Vol] 15 U/L Normal 10-40 [facility] ([place]) Comment on above: Performed By: #### M G, GFR, ADIFF, ANEU, CBC, CMP ####[address] [place], [place] [address] Bili Total 0.5 mg/dL Normal 0.2-1.0 [facility] ([place]) Comment on above: Result Comment: Use of this assay is not recommended for patients undergoing treatment with eltrombopag due to the potential for falsely elevated results. Performed By: #### M G, GFR, ADIFF, ANEU, CBC, CMP ####[address] [place], [place] [address] BUN/Creatinine Ratio 17 ratio Normal 7-27 [facility] ([place]) Comment on above: Performed By: #### M G, GFR, ADIFF, ANEU, CBC, CMP ####[address] [place], [place] [address] Calcium [Mass/Vol] 8.9 mg/dL Normal 8.4-10.2 [facility] ([place]) Comment on above: Performed By: #### M G, GFR, ADIFF, ANEU, CBC, CMP ####[address] [place], [place] [address] Chloride [Moles/Vol] 104 mmol/L Normal 98-107 [facility] ([place]) Comment on above: Performed By: #### M G, GFR, ADIFF, ANEU, CBC, CMP ####[address] [place], [place] [address] CO2 [Moles/Vol] 27 mmol/L Normal 23-31 [facility] ([place]) Comment on above: Performed By: #### M G, GFR, ADIFF, ANEU, CBC, CMP ####[address] [place], [place] [address] Creatinine [Mass/Vol] 1.05 mg/dL Normal 0.70-1.30 [facility] ([place]) Comment on above: Performed By: #### M G, GFR, ADIFF, ANEU, CBC, CMP ####[address] [place], [place] [address] Electrolyte Balance 7.0 mEq/L Normal 4.0-15.0 [facility] ([place]) Comment on above: Performed By: #### M G, GFR, ADIFF, ANEU, CBC, CMP ####[address] [place], [place] [address] Globulin 3.9 G/dL Normal [facility] ([place]) Comment on above: Performed By: #### M G, GFR, ADIFF, ANEU, CBC, CMP ####[address] [place], [place] [address] Glucose [Mass/Vol] 158 mg/dL High 80-115 [facility] ([place]) Comment on above: Performed By: #### M G, GFR, ADIFF, ANEU, CBC, CMP ####[address] [place], [place] [address] Potassium [Moles/Vol] 4.5 mmol/L Normal 3.5-5.1 [facility] ([place]) Comment on above: Performed By: #### M G, GFR, ADIFF, ANEU, CBC, CMP ####[address] [place], [place] [address] Sodium [Moles/Vol] 138 mmol/L Normal 136-145 [facility] ([place]) Comment on above: Performed By: #### M G, GFR, ADIFF, ANEU, CBC, CMP ####[address] [place], [place] [address] Total Protein 7.0 G/dL Normal 6.4-8.2 [facility] ([place]) Comment on above: Performed By: #### M G, GFR, ADIFF, ANEU, CBC, CMP ####[address] [place], [place] [address] Urea nitrogen [Mass/Vol] 18 mg/dL Normal 7-18 [facility] ([place]) Comment on above: Performed By: #### M G, GFR, ADIFF, ANEU, CBC, CMP ####[address] [place], [place] [address] CT ANGIOGRAPHY HEAD W/ CONTR Arpit 10-03-2023 [...] AM Ordering Provider: ABDULLAHI AGUIRRE [facility] ([place]) CT ANGIOGRAPHY NECK W/CONTRA Kassidy 10-03-2023 CT [...] AM Ordering Provider: ABDULLAHI AGUIRRE [facility] ([place]) CT HEAD OR BRAIN W/O CONTRAS Ton [...] 10/01/2023 11:46:49 PM Ordering Provider: TITA Echevarria [facility] ([place]) LABORATORYOrdered By: Kwasi Rob on 10-03-2023 Blood Glucose Testing Reason Routine (10/03/23 4:43 PM) [facility] Work Phone: Glucose [Mass/Vol] 267 mg/dL High 82 - 115 mg/dL [facility] Work Phone: Blood Glucose Testing Reason Routine (10/03/23 11:39 AM) [facility] Work Phone: Glucose [Mass/Vol] 210 mg/dL High 82 - 115 mg/dL [facility] Work Phone: Blood Glucose Testing Reason Routine (10/03/23 7:58 AM) [facility] Work Phone: Glucose [Mass/Vol] 214 mg/dL High 82 - 115 mg/dL [facility] Work Phone: LABORATORYOrdered By: SYSTEM SYSTEM on [...] 10-03-2023 Magnesium [Mass/Vol] 2.0 mg/dL Normal 1.8-2.4 [facility] ([place]) Comment on above: Performed By: #### M G, GFR, ADIFF, ANEU, CBC, CMP ####[address] [place], [place] [address] Nursing Noteon 10-03-2023 Nursing Note Pt arrived from [facility], ambulated to bed, NIH scale 1, pt A&O x 4, denies numbness or tingling, denies headache or dizziness, denies needs at this time, call light and belongings within reach, will monitor. Normal [facility] .Auto DiffOrdered By: SYSTEM SYSTEM on 10-02-2023 Basophil, Absolute 0.1 103/mcL Normal 0.0-0.2 AO Wo rkflow SS Comment on above: Performed By: #### C BC, ADIFF, MG, GFR, ANEU, CMP ####[address] [place], [place] [address] Basophils/100 WBC (Bld) 1.0 % Normal 0.0-2.5 A O Workflow SS Comment on above: Performed By: #### C BC, ADIFF, MG, GFR, ANEU, CMP ####[address] [place], [place] [address] Eosinophil, Absolute 0.3 103/mcL Normal 0.0-0.4 AO Workflow SS Comment on above: Performed By: #### C BC, ADIFF, MG, GFR, ANEU, CMP ####[address] [place], [place] [address] Eosinophils/100 WBC (Bld) 3.8 % Normal 0.0-7.0 AO Workflow SS Comment on above: Performed By: #### C BC, ADIFF, MG, GFR, ANEU, CMP ####[address] [place], [place] [address] Lymphocyte, Absolute 1.6 103/mcL Normal 0.8-3.9 AO Workflow SS Comment on above: Performed By: #### C BC, ADIFF, MG, GFR, ANEU, CMP ####[address] [place], [place] [address] Lymphocytes/100 WBC (Bld) 23.2 % Normal 10.0-50.0 AO Workflow SS Comment on above: Performed By: #### C BC, ADIFF, MG, GFR, ANEU, CMP ####[address] [place], [place] [address] Monocyte, Absolute 0.7 103/mcL Normal 0.2-1.0 AO Wo rkflow SS Comment on above: Performed By: #### C BC, ADIFF, MG, GFR, ANEU, CMP ####[address] [place], [place] [address] Monocytes/100 WBC (Bld) 9.7 % Normal 1.7-13.0 A O Workflow SS Comment on above: Performed By: #### C BC, ADIFF, MG, GFR, ANEU, CMP ####[address] [place], [place] [address] Neutrophils/100 WBC (Bld) 62.3 % Normal 37.0-80.0 AO Workflow SS Comment on above: Performed By: #### C BC, ADIFF, MG, GFR, ANEU, CMP ####[address] [place], [place] [address] .GFRon 10-02-2023 GFR 76 ml/min/1.73sqm Normal [facility] ([place]) Comment on above: Result Comment: [...] BC, ADIFF, MG, GFR, ANEU, CMP ####[address] [place], [place] [address] GFR Non- 63 ml/min/1.73sqm Normal [facility] ([place]) Comment on above: Result Comment: GFR Population [...] ADIFF, MG, GFR, ANEU, CMP ####[address] [place], [place] [address] .NEUABSOrdered By: SYSTEM SY STEM on 10-02-2023 Neutrophil, Absolute 4.4 103/mcL Normal 2.9-6.2 AO Workflow SS Comment on above: Performed By: #### C BC, ADIFF, MG, GFR, ANEU, CMP ####[address] [place], [place] [address] A1Con 10-02-2023 HbA1c (Bld) [Mass fraction] 7.7 % High 4.3-6.4 [facility] ([place]) Comment on above: Performed By: #### F T4, LIPID, A1C, TSH #### [address] [place], [place] [address] CBCOrdered By: SYSTEM SYSTEM on 10-02-2023 Erythrocyte distribution width (RBC) [Ratio] 18.7 % High 11.5-14.5 AO Workflow SS Comment on above: Performed By: #### C BC, ADIFF, MG, GFR, ANEU, CMP ####[address] [place], [place] [address] Hematocrit (Bld) [Volume fraction] 33.0 % Low 42.0-52.0 AO Workflow SS Comment on above: Performed By: #### C BC, ADIFF, MG, GFR, ANEU, CMP ####[address] [place], [place] [address] MCH (RBC) [Entitic mass] 24.6 pg Low 27.0-31.2 AO Workflow SS Comment on above: Performed By: #### C BC, ADIFF, MG, GFR, ANEU, CMP ####[address] [place], [place] [address] MCHC 32.8 G/dL Normal 31.8-35.4 AO Workflow SS Comment on above: Performed By: #### C BC, ADIFF, MG, GFR, ANEU, CMP ####[address] [place], [place] [address] MCV (RBC) [Entitic vol] 75.0 fL Low 80.0-94.0 A O Workflow SS Comment on above: Performed By: #### C BC, ADIFF, MG, GFR, ANEU, CMP ####[address] [place], [place] [address] Platelet mean volume (Bld) [Entitic vol] 7.5 fL Normal 7.4-10.4 AO Workflow SS Comment on above: Performed By: #### C BC, ADIFF, MG, GFR, ANEU, CMP ####[address] [place], [place] [address] CBCon 10-02-2023 Hgb 10.8 G/dL Low 14.0-18.0 [facility] ([place]) Comment on above: Performed By: #### C BC, ADIFF, MG, GFR, ANEU, CMP ####[address] [place], [place] [address] Platelet 220 10 3/mcL Normal 130-400 [facility] ([place]) Comment on above: Performed By: #### C BC, ADIFF, MG, GFR, ANEU, CMP ####[address] [place], [place] [address] RBC 4.40 10 6/mcL Normal 4.04-6.13 [facility] ([place]) Comment on above: Performed By: #### C BC, ADIFF, MG, GFR, ANEU, CMP ####[address] [place], [place] [address] WBC 7.0 10 3/mcL Normal 4.6-10.8 [facility] ([place]) Comment on above: Performed By: #### C BC, ADIFF, MG, GFR, ANEU, CMP ####[address] [place], [place] [address] CMPon 10-02-2023 Albumin Level 3.2 G/dL Low 3.4-4.8 [facility] [facility] ([place] Comment on above: Performed By: #### C BC, ADIFF, MG, GFR, ANEU, CMP ####[address] [place], [place] [address] ALT [Catalytic activity/Vol] 25 U/L Normal 16-63 [facility] ([place]) Comment on above: Performed By: #### C BC, ADIFF, MG, GFR, ANEU, CMP ####[address] [place], [place] [address] AST [Catalytic activity/Vol] 17 U/L Normal 10-40 [facility] ([place] Comment on above: Performed By: #### C BC, ADIFF, MG, GFR, ANEU, CMP ####[address] [place], [place] [address] Bili Total 0.4 mg/dL Normal 0.2-1.0 [facility] ([place] Comment on above: Result Comment: Use of this assay is not recommended for patients undergoing treatment with eltrombopag due to the potential for falsely elevated results. Performed By: #### C BC, ADIFF, MG, GFR, ANEU, CMP ####[address] [place], [place] [address] BUN/Creatinine Ratio 21 ratio Normal 7-27 [facility] ([place] Comment on above: Performed By: #### C BC, ADIFF, MG, GFR, ANEU, CMP ####[address] [place], [place] [address] Total Protein 7.3 G/dL Normal 6.4-8.2 [facility] ([place] Comment on above: Performed By: #### C BC, ADIFF, MG, GFR, ANEU, CMP ####[address] [place], [place] [address] CMPOrdered By: SYSTEM SYSTEM on 10-02-2023 Albumin/Globulin [Mass ratio] 0.8 {ratio} Low 1.1-2.5 AO ADM SS Comment on above: Performed By: #### C BC, ADIFF, MG, GFR, ANEU, CMP ####[address] [place], [place] [address] ALP [Catalytic activity/Vol] 99 U/L Normal 40-135 AO ADM SS Comment on above: Performed By: #### C BC, ADIFF, MG, GFR, ANEU, CMP ####[address] [place], [place] [address] Calcium [Mass/Vol] 8.8 mg/dL Normal 8.4-10.2 AO ADM SS Comment on above: Performed By: #### C BC, ADIFF, MG, GFR, ANEU, CMP ####[address] [place], [place] [address] Chloride [Moles/Vol] 105 mmol/L Normal 98-107 AO A DM SS Comment on above: Performed By: #### C BC, ADIFF, MG, GFR, ANEU, CMP ####[address] [place], [place] [address] CO2 [Moles/Vol] 24 mmol/L Normal 23-31 AO ADM SS Comment on above: Performed By: #### C BC, ADIFF, MG, GFR, ANEU, CMP ####[address] [place], [place] [address] Creatinine [Mass/Vol] 1.18 mg/dL Normal 0.70-1.30 AO ADM SS Comment on above: Performed By: #### C BC, ADIFF, MG, GFR, ANEU, CMP ####[address] [place], [place] [address] Electrolyte Balance 11.0 mEq/L Normal 4.0-15.0 AO AD M SS Comment on above: Performed By: #### C BC, ADIFF, MG, GFR, ANEU, CMP ####[address] [place], [place] [address] Globulin 4.1 G/dL Normal AO ADM SS Comment on above: Performed By: #### C BC, ADIFF, MG, GFR, ANEU, CMP ####[address] [place], [place] [address] Glucose [Mass/Vol] 80 mg/dL Normal 80-115 AO ADM SS Comment on above: Performed By: #### C BC, ADIFF, MG, GFR, ANEU, CMP ###Caesar [address] [place], [place] [address] Potassium [Moles/Vol] 3.9 mmol/L Normal 3.5-5.1 AO ADM SS Comment on above: Performed By: #### C BC, ADIFF, MG, GFR, ANEU, CMP ####[address] [place], [place] [address] Sodium [Moles/Vol] 140 mmol/L Normal 136-145 AO ADM SS Comment on above: Performed By: #### C BC, ADIFF, MG, GFR, ANEU, CMP ###Caesar [address] [place], [place] [address] Urea nitrogen [Mass/Vol] 25 mg/dL High 7-18 AO ADM SS Comment on above: Performed By: #### C BC, ADIFF, MG, GFR, ANEU, CMP ####[address] [place], [place] [address] FT4on 10-02-2023 Free T4 [Mass/Vol] 0.99 ng/dL Normal 0.76-1.46 [facility] ([place]) Comment on above: Performed By: #### F T4, LIPID, A1C, TSH ###Finn [address] [place], [place] [address] LABORATORYOrdered By: SYSTEM SYSTEM on 10-02-2023 Albumin [...] 10-02-2023 Cholesterol [Mass/Vol] 182 mg/dL Normal 0-200 [facility] ([place]) Comment on above: Result Comment: Chol esterol Reference Interval: Less than 200 Desirable 200-239 Borderline high risk 240 and above High risk Performed By: #### F T4, LIPID, A1C, TSH #### [address] [address] Cholesterol in HDL [Mass/Vol] 37 mg/dL Low 40-60 [facility] ([place]) Comment on above: Performed By: #### F T4, LIPID, A1C, TSH #### [address] [place], [place] [address] Cholesterol in LDL [Mass/Vol] 80 mg/dL Normal 0-130 [facility] ([place]) Comment on above: Performed By: #### F T4, LIPID, A1C, TSH #### [address] [place], [place] [address] Triglyceride [Mass/Vol] 323 mg/dL High 0-150 [facility] [place] Comment on above: Result Comment: Trig lyceride Reference Interval: Less than 150 Normal 150-199 Borderline high risk 200-499 High risk 500 or higher Very high risk Performed By: #### F T4, LIPID, A1C, TSH #### [address] [place], [place] [address] MGOrdered By: SYSTEM SYSTEM on 10-02-2023 Magnesium [Mass/Vol] 1.9 mg/dL Normal 1.8-2.4 AO A DM SS Comment on above: Performed By: #### C BC, ADIFF, MG, GFR, ANEU, CMP ####[address] [place], [place] [address] MRI BRAIN W/O CONTRASTon MRI BRAIN W/O [...] 10/02/2023 8:38:30 AM Ordering Provider: CHITO Echevarria [facility] ([place]) TSHon 10-02-2023 TSH Qn 3.31 m[IU]/L Normal 0.36-3.74 [facility] ([place]) Comment on above: Performed By: #### F T4, LIPID, A1C, TSH #### [address] [place], [place] [address] .Auto Diffon 10-01-2023 Basophil, Absolute 0.1 10 3/mcL Normal 0.0-0.2 [facility] ([place]) Comment on above: Performed By: #### A JORGE, CMP, ADIFF, TROPHS, CBC, GFR, MDW, MG ####[address] [place] [address] Basophils/100 WBC (Bld) 1.4 % Normal 0.0-2.5 [facility] [place] Comment [place]: Performed By: #### A JORGE, CMP, ADIFF, TROPHS, CBC, GFR, MDW, MG ####[address] [address] Eosinophil, Absolute 0.4 10 3/mcL Normal 0.0-0.4 [facility] ([place] Comment on above: Performed By: #### A JORGE, CMP, ADIFF, TROPHS, CBC, GFR, MDW, MG ####[address] [address] Eosinophils/100 WBC (Bld) 3.7 % Normal 0.0-7.0 [facility] ([place] Comment on above: Performed By: #### A JORGE, CMP, ADIFF, TROPHS, CBC, GFR, MDW, MG ####[address] [address] Lymphocyte, Absolute 2.5 10 3/mcL Normal 0.8-3.9 [facility] ([place] Comment on above: Performed By: #### A JORGE, CMP, ADIFF, TROPHS, CBC, GFR, MDW, MG ####[address] [place], [place] [address] Lymphocytes/100 WBC (Bld) 23.6 % Normal 10.0-50.0 [facility] ([place] Comment on above: Performed By: #### A JORGE, CMP, ADIFF, TROPHS, CBC, GFR, MDW, MG ####[address] [place], [place] [address] Monocyte, Absolute 1.0 10 3/mcL Normal 0.2-1.0 [facility] ([place] Comment on above: Performed By: #### A JORGE, CMP, ADIFF, TROPHS, CBC, GFR, MDW, MG ####[address] [place], [place] [address] Monocytes/100 WBC (Bld) 9.7 % Normal 1.7-13.0 [facility] [place] Comment [place] above: Performed By: #### A JORGE, CMP, ADIFF, TROPHS, CBC, GFR, MDW, MG ####[address] [place], [place] [address] Neutrophils/100 WBC (Bld) 61.6 % Normal 37.0-80.0 [facility] ([place] Comment on above: Performed By: #### A JORGE, CMP, ADIFF, TROPHS, CBC, GFR, MDW, MG ####[address] [place], [place] [address] .GFRon 10-01-2023 GFR 59 ml/min/1.73sqm Normal [facility] ([place] Comment on above: Result Comment: GFR Population [...] TROPHS, CBC, GFR, MDW, MG ####[address] [place], [place] [address] GFR Non- 48 ml/min/1.73sqm Normal [facility] ([place] Comment on above: Result Comment: GFR Population [...] TROPHS, CBC, GFR, MDW, MG ####[address] [place], [place] [address] .MDWon 10-01-2023 Monocyte Distribution Width 18.06 Normal 0.00-20.00 [facility] ([place] Comment on above: Result Comment: For ED adult patients suspected of sepsis, MDW<=20.0 does not rule out sepsis or risk of sepsis Performed By: #### A JORGE, CMP, ADIFF, TROPHS, CBC, GFR, MDW, MG ####[address] [place], [place] [address] .NEUABSon 10-01-2023 Neutrophil, Absolute 6.5 10 3/mcL High 2.9-6.2 [facility] ([place]) Comment on above: Performed By: #### A JORGE, CMP, ADIFF, TROPHS, CBC, GFR, MDW, MG ####[address] [place], [place] [address] CBCon 10-01-2023 Erythrocyte distribution width (RBC) [Ratio] 18.8 % High 11.5-14.5 [facility] ([place] Comment on above: Performed By: #### A JORGE, CMP, ADIFF, TROPHS, CBC, GFR, MDW, MG #### [address] [address] Hematocrit (Bld) [Volume fraction] 33.8 % Low 42.0-52.0 [facility] ([place] Comment on above: Performed By: #### A JORGE, CMP, ADIFF, TROPHS, CBC, GFR, MDW, MG #### [address] [address] Hgb 11.0 G/dL Low 14.0-18.0 [facility] ([place] Comment on above: Performed By: #### A JORGE, CMP, ADIFF, TROPHS, CBC, GFR, MDW, MG #### [address] [address] MCH (RBC) [Entitic mass] 24.3 pg Low 27.0-31.2 [facility] ([place] Comment on above: Performed By: #### A JORGE, CMP, ADIFF, TROPHS, CBC, GFR, MDW, MG #### [address] [address] MCHC 32.5 G/dL Normal 31.8-35.4 [facility] ([place] Comment on above: Performed By: #### A JORGE, CMP, ADIFF, TROPHS, CBC, GFR, MDW, MG #### [address] [address] MCV (RBC) [Entitic vol] 74.7 fL Low 80.0-94.0 [facility] ([place]) Comment on above: Performed By: #### A JORGE, CMP, ADIFF, TROPHS, CBC, GFR, MDW, MG #### [address] [address] Platelet 250 10 3/mcL Normal 130-400 [facility] ([place] Comment on above: Performed By: #### A JORGE, CMP, ADIFF, TROPHS, CBC, GFR, MDW, MG #### [address] [address] Platelet mean volume (Bld) [Entitic vol] 7.7 fL Normal 7.4-10.4 [facility] ([place] Comment on above: Performed By: #### A JORGE, CMP, ADIFF, TROPHS, CBC, GFR, MDW, MG #### [address] [address] RBC 4.52 10 6/mcL Normal 4.04-6.13 [facility] ([place] Comment on above: Performed By: #### A JORGE, CMP, ADIFF, TROPHS, CBC, GFR, MDW, MG #### [address] [address] WBC 10.6 10 3/mcL Normal 4.6-10.8 [facility] ([place] Comment on above: Performed By: #### A JORGE, CMP, ADIFF, TROPHS, CBC, GFR, MDW, MG #### [address] [address] CMPon 10-01-2023 Albumin Level 3.4 G/dL Normal 3.4-4.8 [facility] ([place] Comment on above: Performed By: #### A JORGE, CMP, ADIFF, TROPHS, CBC, GFR, MDW, MG ####[address] [place], [place] [address] Albumin/Globulin [Mass ratio] 0.8 {ratio} Low 1.1-2.5 [facility] ([place] Comment on above: Performed By: #### A JORGE, CMP, ADIFF, TROPHS, CBC, GFR, MDW, MG ####[facility] [place] [place], [place] [address] ALP [Catalytic activity/Vol] 97 U/L Normal 40-135 [facility] ([place] Comment on above: Performed By: #### A JORGE, CMP, ADIFF, TROPHS, CBC, GFR, MDW, MG ####[address] [place], [place] [address] ALT [Catalytic activity/Vol] 24 U/L Normal 16-63 [facility] ([place] Comment on above: Performed By: #### A JORGE, CMP, ADIFF, TROPHS, CBC, GFR, MDW, MG ####[address] [place], [place] [address] AST [Catalytic activity/Vol] 19 U/L Normal 10-40 [facility] ([place] Comment on above: Performed By: #### A JORGE, CMP, ADIFF, TROPHS, CBC, GFR, MDW, MG ####[address] [place], [place] [address] Bili Total 0.5 mg/dL Normal 0.2-1.0 [facility] ([place] Comment on above: Result Comment: Use of this assay is not recommended for patients undergoing treatment with eltrombopag due to the potential for falsely elevated results. Performed By: #### A JORGE, CMP, ADIFF, TROPHS, CBC, GFR, MDW, MG ####[address] [place], [place] [address] BUN/Creatinine Ratio 20 ratio Normal 7-27 [facility] ([place] Comment on above: Performed By: #### A JORGE, CMP, ADIFF, TROPHS, CBC, GFR, MDW, MG ####[address] [place], [place] [address] Calcium [Mass/Vol] 8.9 mg/dL Normal 8.4-10.2 [facility] ([place]) Comment on above: Performed By: #### A JORGE, CMP, ADIFF, TROPHS, CBC, GFR, MDW, MG ####[address] [place], [place] [address] Chloride [Moles/Vol] 104 mmol/L Normal 98-107 [facility] ([place] Comment on above: Performed By: #### A JORGE, CMP, ADIFF, TROPHS, CBC, GFR, MDW, MG ####[address] [place], [place] [address] CO2 [Moles/Vol] 22 mmol/L Low 23-31 [facility] ([place] Comment on above: Performed By: #### A JORGE, CMP, ADIFF, TROPHS, CBC, GFR, MDW, MG ####[address] [place], [place] [address] Creatinine [Mass/Vol] 1.48 mg/dL High 0.70-1.30 [facility] ([place] Comment on above: Performed By: #### A JORGE, CMP, ADIFF, TROPHS, CBC, GFR, MDW, MG ####[address] [place], [place] [address] Electrolyte Balance 12.0 mEq/L Normal 4.0-15.0 [facility] ([place] Comment on above: Performed By: #### A JORGE, CMP, ADIFF, TROPHS, CBC, GFR, MDW, MG ####[address] [place], [place] [address] Globulin 4.3 G/dL Normal [facility] ([place] Comment on above: Performed By: #### A JORGE, CMP, ADIFF, TROPHS, CBC, GFR, MDW, MG ####[address] [place], [place] [address] Glucose [Mass/Vol] 151 mg/dL High 80-115 [facility] ([place]) Comment on above: Performed By: #### A JORGE, CMP, ADIFF, TROPHS, CBC, GFR, MDW, MG ####[address] [place], [place] [address] Potassium [Moles/Vol] 4.0 mmol/L Normal 3.5-5.1 [facility] ([place] Comment on above: Performed By: #### A JORGE, CMP, ADIFF, TROPHS, CBC, GFR, MDW, MG ####[address] [place], [place] [address] Sodium [Moles/Vol] 138 mmol/L Normal 136-145 [facility] ([place]) Comment on above: Performed By: #### A JORGE, CMP, ADIFF, TROPHS, CBC, GFR, MDW, MG ####[address] [place], [place] [address] Total Protein 7.7 G/dL Normal 6.4-8.2 [facility] ([place] Comment on above: Performed By: #### A JORGE, CMP, ADIFF, TROPHS, CBC, GFR, MDW, MG ####[address] [place], [place] [address] Urea nitrogen [Mass/Vol] 30 mg/dL High 7-18 [facility] ([place] Comment on above: Performed By: #### A JORGE, CMP, ADIFF, TROPHS, CBC, GFR, MDW, MG ####[address] [place], [place] [address] LABORATORYOrdered By: Ronald العراقي on 10-01-2023 Appearance [...] ng/L Male: 0-76 ng/L Testing performed on [employer] using a homogeneous sandwich chemiluminescent immunoassay based on [employer] technology. Albumin BCP dye [Mass/Vol] 3.4 G/dL [...] ng/L Male: 0-76 ng/L Testing performed on [employer] using a homogeneous sandwich chemiluminescent immunoassay based on [employer] technology. Urea nitrogen [Mass/Vol] 30 mg/dL High 7 - 18 mg/dL AO ADM SS Urea nitrogen/Creatinine [Mass ratio] 20 ratio Normal 7 - 27 ratio AO ADM SS WBC (Bld) [#/Vol] 10.6 103/mcL Normal 4.6 - 10.8 10^3/mcL AO Workflow SS MGon 10-01-2023 Magnesium [Mass/Vol] 1.8 mg/dL Normal 1.8-2.4 [facility] ([place] Comment on above: Performed By: #### A JORGE, CMP, ADIFF, TROPHS, CBC, GFR, MDW, MG ####[address] [place], [place] [address] TROPHSon 10-01-2023 High Sensitivity Troponin I 9 ng/L Normal 0-76 [facility] ([place] Comment on above: Result Comment: High Sensitive Troponin I Reference Ranges: Female: 0-51 ng/L Male: 0-76 ng/L Testing performed on [employer] using a homogeneous sandwich chemiluminescent immunoassay based on [employer] technology. Performed By: #### T SAY #### [address] [place], [place] [address] High Sensitivity Troponin I 10 ng/L Normal 0-76 [facility] ([place] Comment on above: Result Comment: High Sensitive Troponin I Reference Ranges: Female: 0-51 ng/L Male: 0-76 ng/L Testing performed on [employer] using a homogeneous sandwich chemiluminescent immunoassay based on [employer] technology. Performed By: #### A JORGE, CMP, ADIFF, TROPHS, CBC, GFR, MDW, MG ####[address] [place], [place] [address] UAon 10-01-2023 Color (U) Yellow Normal [facility] ([place] Comment on above: Performed By: #### U A ####[address] [place], [place] [address] Glucose (U) [Mass/Vol] 500 mg/dL Abnormal Negative [facility] ([place]) Comment on above: Performed By: #### U A ####[address] [place], [place] [address] Ketones Ql (U) Negative Normal Negative [facility] ([place] Comment on above: Performed By: #### U A ####[address] [place], [place] [address] UA Appear Clear Normal Clear [facility] ([place] Comment on above: Performed By: #### U A ####[address] [place], [place] [address] UA Blood Negative Normal Negative [facility] ([place] Comment on above: Performed By: #### U A ####[address] [place] [address] UA Leuk Est Negative Normal Negative [facility] ([place] Comment on above: Performed By: #### U A ####[address] [place] [address] UA Nitrite Negative Normal Negative [facility] ([place] Comment on above: Performed By: #### U A ####[address] [place] [address] UA pH 5.5 Normal 5.0 - 8.0 [facility] ([place] Comment on above: Performed By: #### U A ####[address] [place] [address] UA Protein Negative Normal Negative [facility] ([place] Comment on above: Performed By: #### U A ####[address] [place] [address] UA Spec Grav 1.020 Normal 1.015-1.02 5 [facility] ([place] Comment on above: Performed By: #### U A ####[address] [place] [address] UA Specimen Type Void Normal [facility] ([place] Comment on above: Performed By: #### U A ####[address] [place], [place] [address] UA Urobilinogen 0.2 E.U./dL Normal 0.2-1.0 [facility] ([place] Comment on above: Performed By: #### U A ####[address] [place] [address] Urobilinogen (U) [Mass/Vol] Negative Normal Negative [facility] ([place] Comment on above: Performed By: #### U A ####[address] [place], [place] [address] XR CHEST 1 VIEWon 10-01-2023 XR CHEST [...] 10/01/2023 9:13:56 PM Ordering Provider: TITA Echevarria [facility] ([place]) Bilirubin, Directon 09-26-19 24 Bilirubin.direct [Mass/Vol] 0.12 mg/dL Normal 0.00-0.30 [facility] Comment on above: Order Comment: Y Performed By: #### L 506.0250, L3300.8000, L500.4100, L501.4700, L503.0105, L3130.0010 ####[facility] [address] [place], [address] CBC W/Diff, Automatedon 08-31 Absolute Lymph 1.81 X10 3/uL Normal 0.83-4.51 [facility] Comment on above: Performed By: #### L 100.0100, L500.4050, L501.5200, L501.9520, L506.0400 ####[facility] [address] [place], [address] Absolute Neut 5.8 X10 3/uL Normal 2.0-7.7 [facility] Comment on above: Performed By: #### L 100.0100, L500.4050, L501.5200, L501.9520, L506.0400 ####[facility] [address] [place], [address] Basophils/100 WBC (Bld) 0.6 % Normal 0-1 [facility] Comment on above: Performed By: #### L 100.0100, L500.4050, L501.5200, L501.9520, L506.0400 ####[facility] [address] [place], [address] Eosinophils/100 WBC (Bld) 3.1 % Normal 0-5 [facility] Comment on above: Performed By: #### L 100.0100, L500.4050, L501.5200, L501.9520, L506.0400 ####[facility] [address] [place], [address] Erythrocyte distribution width (RBC) [Ratio] 17.8 % High 11.6-14.6 [facility] Comment on above: Performed By: #### L 100.0100, L500.4050, L501.5200, L501.9520, L506.0400 ####[facility] [address] [place], [address] Hematocrit (Bld) [Volume fraction] 35.7 % Low 40-54 [facility] Comment on above: Performed By: #### L 100.0100, L500.4050, L501.5200, L501.9520, L506.0400 ####[facility] [address] [place], [address] Hemoglobin (Bld) [Mass/Vol] 10.9 g/dL Low 13.0-16.5 [facility] Comment on above: Performed By: #### L 100.0100, L500.4050, L501.5200, L501.9520, L506.0400 ####[facility] [address] [place], [address] IG% 0.300 Normal 0.0-0.9 [facility] Comment on above: Result Comment: IG% - Immature Granulocytes (promyelocytes, myelocytes andmetamyelocytes) > 1% indicates that a LEFT SHIFT is Present. Performed By: #### L 100.0100, L500.4050, L501.5200, L501.9520, L506.0400 ####[facility] [address] [place], [address] Lymphocytes/100 WBC (Bld) 20.9 % Normal 19-41 [facility] Comment on above: Performed By: #### L 100.0100, L500.4050, L501.5200, L501.9520, L506.0400 ####[facility] [address] [place], [address] MCH (RBC) [Entitic mass] 23.3 pg Low 27.0-32.0 [facility] Comment on above: Performed By: #### L 100.0100, L500.4050, L501.5200, L501.9520, L506.0400 ####[facility] [address] [place], [address] MCHC (RBC) [Mass/Vol] 30.5 g/dL Low 32-36 [facility] Comment on above: Performed By: #### L 100.0100, L500.4050, L501.5200, L501.9520, L506.0400 ####[facility] [address] [place], [address] MCV (RBC) [Entitic vol] 76.4 fL Low 80-94 [facility] Comment on above: Performed By: #### L 100.0100, L500.4050, L501.5200, L501.9520, L506.0400 ####[facility] [address] [place], [address] Monocytes/100 WBC (Bld) 8.0 % Normal 0-10 [facility] Comment on above: Performed By: #### L 100.0100, L500.4050, L501.5200, L501.9520, L506.0400 ####[facility] [address] [place], [address] Neutrophils/100 WBC (Bld) 67.1 % Normal 47-70 [facility] Comment on above: Performed By: #### L 100.0100, L500.4050, L501.5200, L501.9520, L506.0400 ####[facility] [address] [place], [address] Nucleated RBC (Bld) [#/Vol] 0 10*3/uL Normal 0-5 [facility] Comment on above: Performed By: #### L 100.0100, L500.4050, L501.5200, L501.9520, L506.0400 ####[facility] [address] [place], [address] Platelet mean volume (Bld) [Entitic vol] 10.1 fL Normal 6.2-12.0 [facility] Comment on above: Performed By: #### L 100.0100, L500.4050, L501.5200, L501.9520, L506.0400 ####[facility] [address] [place], [address] Platelets (Bld) [#/Vol] 252 10*3/uL Normal 150-450 [facility] Comment on above: Performed By: #### L 100.0100, L500.4050, L501.5200, L501.9520, L506.0400 ####[facility] [address] [place], [address] RBC (Bld) [#/Vol] 4.67 10*6/uL Normal 4.6-6.2 [facility] Comment on above: Performed By: #### L 100.0100, L500.4050, L501.5200, L501.9520, L506.0400 ####[facility] [address] [place], [address] RDW SD 48.3 fl High 35.1-43.9 [facility] Comment on above: Performed By: #### L 100.0100, L500.4050, L501.5200, L501.9520, L506.0400 ####[facility] [address] [place], [address] WBC (Bld) [#/Vol] 8.6 10*3/uL Normal 4.4-11.0 [facility] Comment on above: Performed By: #### L 100.0100, L500.4050, L501.5200, L501.9520, L506.0400 ####[facility] [address] [place], [address] Comprehensive Metabolic Prof [facility] 09-26-2023 Albumin [Mass/Vol] 3.4 g/dL Normal 3.2-5.0 [facility] Comment on above: Order Comment: DR RONALD WRAY GETS TSH LIVER AND T4F Performed By: #### L 100.0100, L500.4050, L501.5200, L501.9520, L506.0400 ####[facility] [address] [place], [address] Albumin/Globulin [Mass ratio] 0.7 {ratio} Low 0.9-2.4 [facility] Comment on above: Order Comment: DR RONALD WRAY GETS TSH LIVER AND T4F Performed By: #### L 100.0100, L500.4050, L501.5200, L501.9520, L506.0400 ####[facility] [address] [place], [address] ALK P 98 U/L Normal 45-117 [facility] Comment on above: Order Comment: DR RONALD WRAY GETS TSH LIVER AND T4F Performed By: #### L 100.0100, L500.4050, L501.5200, L501.9520, L506.0400 ####[facility] [address] [place], [address] ALT [Catalytic activity/Vol] 18 U/L Normal 16-61 [facility] Comment on above: Order Comment: DR RONALD WRAY GETS TSH LIVER AND T4F Performed By: #### L 100.0100, L500.4050, L501.5200, L501.9520, L506.0400 ####[facility] [address] [place], [address] AST [Catalytic activity/Vol] 18 U/L Normal 15-37 [facility] Comment on above: Order Comment: DR RONALD WRAY GETS TSH LIVER AND T4F Performed By: #### L 100.0100, L500.4050, L501.5200, L501.9520, L506.0400 ####[facility] [address] [place], [address] Bilirubin [Mass/Vol] 0.40 mg/dL Normal 0.20-1.00 [facility] Comment on above: Order Comment: DR RONALD WRAY GETS TSH LIVER AND T4F Result Comment: For patients on eltrombopag therapy, use of Dimension [place] TBIL is not recommended. Performed By: #### L 100.0100, L500.4050, L501.5200, L501.9520, L506.0400 ####[facility] [address] [place], [address] BUN/CRE 25.5 RATIO High 10-20 [facility] Comment on above: Order Comment: DR RONALD WRAY GETS TSH LIVER AND T4F Performed By: #### L 100.0100, L500.4050, L501.5200, L501.9520, L506.0400 ####[facility] [address] [place], [address] CA,Total 8.8 mg/dL Normal 8.5-10.1 [facility] Comment on above: Order Comment: DR RONALD WRAY GETS TSH LIVER AND T4F Performed By: #### L 100.0100, L500.4050, L501.5200, L501.9520, L506.0400 ####[facility] [address] [place], [address] Chloride [Moles/Vol] 105 mmol/L Normal 98-107 [facility] Comment on above: Order Comment: DR RONALD WRAY GETS TSH LIVER AND T4F Performed By: #### L 100.0100, L500.4050, L501.5200, L501.9520, L506.0400 ####[facility] [address] [place], [address] CO2 [Moles/Vol] 18.0 mmol/L Low 21.0-32.0 [facility] Comment on above: Order Comment: DR RONALD WRAY GETS TSH LIVER AND T4F Performed By: #### L 100.0100, L500.4050, L501.5200, L501.9520, L506.0400 ####[facility] [address] [place], [address] Creatinine [Mass/Vol] 1.37 mg/dL High 0.70-1.30 [facility] Comment on above: Order Comment: DR RONALD WRAY GETS TSH LIVER AND T4F Result Comment: The validity of the calculated GFR GFRAA in patients over70 years has not been determined. Clinical correlation isessential. Performed By: #### L 100.0100, L500.4050, L501.5200, L501.9520, L506.0400 ####[facility] [address] [place], [address] EST GFR - AA 68 mL/min Normal >60 [facility] Comment on above: Order Comment: DR RONALD WRAY GETS TSH LIVER AND T4F Result Comment: Afri can [place] GFR Calc Performed By: #### L 100.0100, L500.4050, L501.5200, L501.9520, L506.0400 ####[facility] [address] [place], [address] GAP 12 Normal 5-15 [facility] Comment on above: Order Comment: DR RONALD WRAY GETS TSH LIVER AND T4F Performed By: #### L 100.0100, L500.4050, L501.5200, L501.9520, L506.0400 ####[facility] [address] [place], [address] GFR/1.73 sq M.predicted among non-blacks MDRD (S/P/Bld) [Vol rate/Area] 56 mL/min/{1.73_m2} Low >60 [facility] Comment on above: Order Comment: DR RONALD WRAY GETS TSH LIVER AND T4F Result Comment: Non- GFR Calc Performed By: #### L 100.0100, L500.4050, L501.5200, L501.9520, L506.0400 ####[facility] [address] [place], [address] Globulin (S) [Mass/Vol] 4.9 g/dL High 2.2-4.2 [facility] Comment on above: Order Comment: DR RONALD WRAY GETS TSH LIVER AND T4F Performed By: #### L 100.0100, L500.4050, L501.5200, L501.9520, L506.0400 ####[facility] [address] [place], [address] Glucose [Mass/Vol] 260 mg/dL High 74-106 [facility] Comment on above: Order Comment: DR RONALD WRYA GETS TSH LIVER AND T4F Result Comment: Gluc ose result greater than or equal to 200 mg/dLsuggests DIABETES MELLITUS per A.D.A. criteria. Performed By: #### L 100.0100, L500.4050, L501.5200, L501.9520, L506.0400 ####[facility] [address] [place], [address] Potassium [Moles/Vol] 4.2 mmol/L Normal 3.5-5.1 [facility] Comment on above: Order Comment: DR RONALD WRAY GETS TSH LIVER AND T4F Performed By: #### L 100.0100, L500.4050, L501.5200, L501.9520, L506.0400 ####[facility] [address] [place], [address] Sodium [Moles/Vol] 135 mmol/L Low 136-145 [facility] Comment on above: Order Comment: DR RONALD WRAY GETS TSH LIVER AND T4F Performed By: #### L 100.0100, L500.4050, L501.5200, L501.9520, L506.0400 ####[facility] [address] [place], [address] T PROT 8.3 g/dL High 6.4-8.2 [facility] Comment on above: Order Comment: DR RONALD WRAY GETS TSH LIVER AND T4F Performed By: #### L 100.0100, L500.4050, L501.5200, L501.9520, L506.0400 ####[facility] [address] [place], [address] Urea nitrogen [Mass/Vol] 35 mg/dL High 7-18 [facility] Comment on above: Order Comment: DR RONALD WRAY GETS TSH LIVER AND T4F Performed By: #### L 100.0100, L500.4050, L501.5200, L501.9520, L506.0400 ####[facility] [address] [place], [address] Folates, (Folic Acid)on 08-31 FOLATES 4.90 ng/mL Normal 3.1-55.4 [facility] Comment on above: Order Comment: Y Result Comment: Slig ht Hemolysis, Result may be falsely increased. Performed By: #### L 506.0250, L3300.8000, L500.4100, L501.4700, L503.0105, L3130.0010 ####[facility] [address] [place], [address] Lipid Profileon 09-26-2023 Cholesterol [Mass/Vol] 156 mg/dL Normal 200 [facility] Comment on above: Order Comment: Y Result Comment: <200 mg/dL Desirable 200-240 mg/dL Borderline >240 mg/dL High Risk Performed By: #### L 506.0250, L3300.8000, L500.4100, L501.4700, L503.0105, L3130.0010 ####[facility] [address] [place], [address] Cholesterol in HDL [Mass/Vol] 31 mg/dL Low [facility] Comment on above: Order Comment: Y Result Comment: The drugs N-Acetylcysteine and Metamizole may falselydepress this assay. Reference Range HDL <40 mg/dL Low HDL Cholesterol HDL >or= 60 mg/dL High HDL Cholesterol Performed By: #### L 506.0250, L3300.8000, L500.4100, L501.4700, L503.0105, L3130.0010 ####[facility] [address] [place], [address] LDL TNP Normal 0-130 [facility] Comment on above: Order Comment: Y Performed By: #### L 506.0250, L3300.8000, L500.4100, L501.4700, L503.0105, L3130.0010 ####[facility] [address] [place], [address] Triglyceride [Mass/Vol] 418 mg/dL High [facility] Comment on above: Order Comment: Y [...] L 506.0250, L3300.8000, L500.4100, L501.4700, L503.0105, L3130.0010 ####[facility] [address] [place], [address] VLDL TNP Normal 5-40 [facility] Comment on above: Order Comment: Y Performed By: #### L 506.0250, L3300.8000, L500.4100, L501.4700, L503.0105, L3130.0010 ####[facility] [address] [place], [address] Magnesiumon 09-26-2023 Magnesium [Mass/Vol] 2.1 mg/dL Normal 1.6-2.6 [facility] Comment on above: Order Comment: DR RONALD WRAY GETS TSH LIVER AND T4F Performed By: #### L 100.0100, L500.4050, L501.5200, L501.9520, L506.0400 ####[facility] [address] [place], [address] T4 Free Directon 09-26-2023 T4 FREE DIRECT 1.22 ng/dL Normal 0.76-1.46 [facility] Comment on above: Order Comment: DR RONALD WRAY GETS TSH LIVER AND T4F Performed By: #### L 100.0100, L500.4050, L501.5200, L501.9520, L506.0400 ####[facility] [address] [place], [address] Thyroid Stim Hormone (TSH)on 09-26-2023 TSH 1.67 uIU/mL Normal 0.358-3.74 [facility] Comment on above: Order Comment: DR RONALD REAVES TSH LIVER AND T4F Performed By: #### L 100.0100, L500.4050, L501.5200, L501.9520, L506.0400 ####[facility] [address] [place], [address] Vitamin B12on 09-26-2023 Cobalamin (Vitamin B12) [Mass/Vol] 331 pg/mL Normal 211-911 [facility] Comment on above: Performed By: #### L 506.0250, L3300.8000, L500.4100, L501.4700, L503.0105, L3130.0010 ####[facility] [address] [place], [address] Pulmonary Visit Reporton Pulmonary Visit Report Normal [facility] L/S Spine Min 4 Viewson 08-31 L/S Spine Min 4 Views Normal [facility] Thoracic Spine 3 Viewson Thoracic Spine 3 Views Normal [facility] Absolute lymphocyte countOrd ered By: Fany Diaz on 08-05-2023 Lymphocytes Auto (Unsp spec) [#/Vol] 2.02 10*3/uL 0.83-4.51 [facility] Automated lymphocyte count a s percentage of total leukocytesOrdered By: Fany Diaz on 08-05-2023 Lymphocytes/100 WBC Auto (Unsp spec) 22.3 % 19-41 [facility] Basophil percentageOrdered B y: Fany Diaz on 08-05-2023 Basophil percentage 3.9 mg/dL 2.5-4.9 [facility] Basophils/100 WBC (Bld) 0.9 % 0-1 [facility] Chloride [Moles/Vol] 108 mmol/L 98-107 [facility] Eosinophils/100 WBC (Bld) 3.2 % 0-5 [facility] Glucose [Mass/Vol] 158 mg/dL 74-106 [facility] Comment on above: Fasting Glucose resu lt greater than or equal to 126 mg/dL suggests DIABETES MELLITUS per A.D.A. criteria. Hemoglobin (Bld) [Mass/Vol] 11.6 g/dL 13.0-16.5 [facility] Monocytes/100 WBC (Bld) 9.6 % 0-10 [facility] Neutrophils (Bld) [#/Vol] 5.8 10*3/uL 2.0-7.7 [facility] Neutrophils/100 WBC (Bld) 63.6 % 47-70 [facility] Potassium [Moles/Vol] 4.1 mmol/L 3.5-5.1 [facility] Sodium [Moles/Vol] 136 mmol/L 136-145 [facility] WBC (Bld) [#/Vol] 9.1 10*3/uL 4.4-11.0 [facility] Determination of erythrocyte mean corpuscular volume (MCV)Ordered By: Fany Diaz on 08-05-2023 MCV (RBC) [Entitic vol] 77.0 fL 80-94 [facility] Erythrocyte distribution wid th ratioOrdered By: Fany Diaz on 08-05-2023 Erythrocyte distribution width (RBC) [Ratio] 18.6 % 11.6-14.6 [facility] Erythrocyte distribution wid th standard deviationOrdered By: Fany Diaz on 08-05-2023 Erythrocyte distribution width (RBC) [Entitic vol] 51.4 fL 35.1-43.9 [facility] Hematocrit Auto (Bld) [Volum e fraction]Ordered By: Fany Diaz on 08-05-2023 Hematocrit (Bld) [Volume fraction] 38.1 % 40-54 [facility] Immature granulocytes/100 WB C Auto (Bld)Ordered By: Fany Diaz on 08-05-2023 Immature granulocytes/100 WBC (Bld) 0.400 % 0.0-0.9 [facility] Comment on above: IG% - Immature Granu locytes (promyelocytes, myelocytes and metamyelocytes) > 1% indicates that a LEFT SHIFT is Present. Iron measurement (mass/mass) Ordered By: Fany Diaz on 08-05-2023 Iron (Unsp spec) [Mass/Mass] 42 ug/dL 65-175 [facility] - Chemistry and C hemistry - challengeOrdered By: Fany Diaz on 08-05-2023 CO2 [Moles/Vol] 20.0 mmol/L 21.0-32.0 [facility] Ferritin [Mass/Vol] 20 ng/mL 26-388 [facility] Urea nitrogen/Creatinine [Mass ratio] 25.5 mg/mg 10-20 [facility] - Hematology and Cell countsOrdered By: Fany Diaz on 08-05-2023 MCH (RBC) [Entitic mass] 23.4 pg 27.0-32.0 [facility] MCHC (RBC) [Mass/Vol] 30.4 g/dL 32-36 [facility] Nucleated RBC/100 WBC (Bld) [Ratio] 0 % 0-5 [facility] Platelet mean volume (Bld) [Entitic vol] 9.8 fL 6.2-12.0 [facility] Platelets (Bld) [#/Vol] 277 10*3/uL 150-450 [facility] No Panel InformationOrdered By: Fany Diaz on 08-05-2023 Estimated GFR (MDRD) Amer 88 mL/min >60 [facility] Comment on above: GFR Calc Estimated GFR (MDRD) Non-Af Amer 73 mL/min >60 [facility] Comment on above: Non- GFR Calc Parathyroid Hormone (Intact) 71.4 pg/mL 18.4-80.1 [facility] Total Iron Binding Capacity 383 ug/dL 250-450 [facility] RBC Auto (Bld) [#/Vol]Ordere d By: Fany Diaz on 08-05-2023 RBC (Bld) [#/Vol] 4.95 10*6/uL 4.6-6.2 [facility] Serum or plasma calcium grazyna urement (mass/volume)Ordered By: Fany Diaz on 08-05-2023 Calcium [Mass/Vol] 9.3 mg/dL 8.5-10.1 [facility] Serum or plasma creatinine m easurement (mass/volume)Ordered By: Fany Diaz on 08-05-2023 Creatinine [Mass/Vol] 1.10 mg/dL 0.70-1.30 [facility] Comment on above: The validity of the calculated GFR & GFRAA in patients over 70 years has not been determined. Clinical correlation is essential. Serum or plasma iron saturat ion measurement (mass fraction)Ordered By: Fany Diaz on 08-05-2023 Iron saturation [Mass fraction] 11.0 % 15.0-55.0 [facility] Serum or plasma urea nitroge n measurement (mass/volume)Ordered By: Fany Diaz on 08-05-2023 Urea nitrogen [Mass/Vol] 28 mg/dL 7-18 [facility] Serum or plasma uric acid me asurement (mass/volume)Ordered By: [facility] on 08-05-2023 Urate [Mass/Vol] 7.3 mg/dL 3.5-7.2 [facility] Comment on above: The drugs N-Acetylcy steine and Metamizole may falsely depress this assay. Thin prep Papanicolaou smear with manual screeningOrdered By: Fany Diaz on 08-05-2023 Protein (U) [Mass/Vol] 25.0 mg/dL 0.0-11.8 [facility] Thin prep Papanicolaou smear with manual screening 3.3 g/dL 3.2-5.0 [facility] Urine creatinine measurement (mass/volume)Ordered By: Fany Diaz on 08-05-2023 Creatinine (U) [Mass/Vol] 67.40 mg/dL NO RANGE EST. [facility] Urine protein/creatinine mas s ratioOrdered By: Fany Diaz on 08-05-2023 Protein/Creatinine (U) [Mass ratio] 371 mg/g CRE 0-200 [facility] Basophil percentageOrdered B y: Francois Valiente on 06-06-2023 Creatinine [Mass/Vol] 1.4 mg/dL 0.70-1.30 [facility] Laboratory - Chemistry and C hemistry - challengeOrdered By: Francois Valiente on 06-06-2023 GFR/1.73 sq M.predicted among non-blacks MDRD (S/P/Bld) [Vol rate/Area] 55.0000 mL/min/{1.73_m2} >60 [facility] - Hematology and Cell countson 05-20-2023 HbA1c (Bld) [Mass fraction] 7.5 % 4.2-6.3 [facility] Basophil percentageOrdered B y: Oren Sky on 04-25-2023 Bilirubin [Mass/Vol] 0.50 mg/dL 0.20-1.00 [facility] Comment on above: For patients on eltr ombopag therapy, use of Dimension [place] TBIL is not recommended. Chloride [Moles/Vol] 108 mmol/L 98-107 [facility] Glucose [Mass/Vol] 157 mg/dL 74-106 [facility] Comment on above: Fasting Glucose resu lt greater than or equal to 126 mg/dL suggests DIABETES MELLITUS per A.D.A. criteria. Hemoglobin (Bld) [Mass/Vol] 11.5 g/dL 13.0-16.5 [facility] Potassium [Moles/Vol] 3.9 mmol/L 3.5-5.1 [facility] Protein [Mass/Vol] 8.4 g/dL 6.4-8.2 [facility] Sodium [Moles/Vol] 135 mmol/L 136-145 [facility] WBC (Bld) [#/Vol] 10.8 10*3/uL 4.4-11.0 [facility] Determination of erythrocyte mean corpuscular volume (MCV)Ordered By: Oren Sky on 04-25-2023 MCV (RBC) [Entitic vol] 76.0 fL 80-94 [facility] Erythrocyte distribution wid th ratioOrdered By: Oren Sky on 04-25-2023 Erythrocyte distribution width (RBC) [Ratio] 18.6 % 11.6-14.6 [facility] Erythrocyte distribution wid th standard deviationOrdered By: Oren Sky on 04-25-2023 Erythrocyte distribution width (RBC) [Entitic vol] 48.6 fL 35.1-43.9 [facility] Hematocrit Auto (Bld) [Volum e fraction]Ordered By: Oren Sky on 04-25-2023 Hematocrit (Bld) [Volume fraction] 38.0 % 40-54 [facility] - Chemistry and C hemistry - challengeOrdered By: Oren Sky on 04-25-2023 Albumin/Globulin [Mass ratio] 0.7 {ratio} 0.9-2.4 [facility] ALP [Catalytic activity/Vol] 102 U/L 45-117 [facility] ALT [Catalytic activity/Vol] 27 U/L 16-61 [facility] CO2 [Moles/Vol] 18.0 mmol/L 21.0-32.0 [facility] Globulin (S) [Mass/Vol] 4.9 g/dL 2.2-4.2 [facility] Natriuretic peptide B (Bld) [Mass/Vol] 13.4 pg/mL 0-100 [facility] Urea nitrogen/Creatinine [Mass ratio] 19.2 mg/mg 10-20 [facility] - Hematology and Cell countsOrdered By: Oren Sky on 04-25-2023 MCH (RBC) [Entitic mass] 23.0 pg 27.0-32.0 [facility] MCHC (RBC) [Mass/Vol] 30.3 g/dL 32-36 [facility] Platelets (Bld) [#/Vol] 289 10*3/uL 150-450 [facility] No Panel InformationOrdered By: Oren Sky on 04-25-2023 Estimated GFR (MDRD) Amer 73 mL/min >60 [facility] Comment on above: GFR Calc Estimated GFR (MDRD) Non-Af Amer 60 mL/min >60 [facility] Comment on above: Non- GFR Calc Platelet mean volume Deon-Ec ker (Bld) [Entitic vol]Ordered By: Oren Sky on 04-25-2023 Platelet mean volume (Bld) [Entitic vol] 9.7 fL 6.2-12.0 [facility] RBC Auto (Bld) [#/Vol]Ordere d By: Oren Sky on 04-25-2023 RBC (Bld) [#/Vol] 5.00 10*6/uL 4.6-6.2 [facility] Serum or plasma calcium grazyna urement (mass/volume)Ordered By: Oren Sky on 04-25-2023 Calcium [Mass/Vol] 9.2 mg/dL 8.5-10.1 [facility] Serum or plasma creatinine m easurement (mass/volume)Ordered By: Oren Sky on 04-25-2023 Creatinine [Mass/Vol] 1.30 mg/dL 0.70-1.30 [facility] Comment on above: The validity of the calculated GFR & GFRAA in patients over 70 years has not been determined. Clinical correlation is essential. Serum or plasma thyroid stim ulating hormone (TSH) measurement (units/volume)Ordered By: Oren Sky on 04-25-2023 TSH Qn 1.74 uIU/mL 0.358-3.74 [facility] Serum or plasma urea nitroge n measurement (mass/volume)Ordered By: Oren Sky on 04-25-2023 Urea nitrogen [Mass/Vol] 25 mg/dL 7-18 [facility] Thin prep Papanicolaou smear with manual screeningOrdered By: Oren Sky on 04-25-2023 Thin prep Papanicolaou smear with manual screening 3.5 g/dL 3.2-5.0 [facility] Thin prep Papanicolaou smear with manual screening 17 U/L 15-37 [facility] Thin prep Papanicolaou smear with manual screening 9 5-15 [facility] - Chemistry and C hemistry - challengeOrdered By: Coreen Gerardo on 02-26-2023 Free T4 [Mass/Vol] 0.85 ng/dL 0.76-1.46 [facility] No Panel InformationOrdered By: oCreen Gerardo on 02-26-2023 Thyroid Stimulating Hormone (TSH) 8.76 uIU/mL 0.358-3.74 [facility] Basophil percentageOrdered B y: Fany Diaz on 01-15-2023 Basophil percentage 2.8 mg/dL 2.5-4.9 [facility] Chloride [Moles/Vol] 107 mmol/L 98-107 [facility] Glucose [Mass/Vol] 74 mg/dL 74-106 [facility] Potassium [Moles/Vol] 3.2 mmol/L 3.5-5.1 [facility] Sodium [Moles/Vol] 139 mmol/L 136-145 [facility] - Chemistry and C hemistry - challengeOrdered By: Fany Diaz on 01-15-2023 CO2 [Moles/Vol] 24.0 mmol/L 21.0-32.0 [facility] Urea nitrogen/Creatinine [Mass ratio] 10.2 mg/mg 10-20 [facility] No Panel InformationOrdered By: Fany Diaz on 01-15-2023 Estimated GFR (MDRD) Amer 74 mL/min >60 [facility] Comment on above: GFR Calc Estimated GFR (MDRD) Non-Af Amer 61 mL/min >60 [facility] Comment on above: Non- GFR Calc Serum or plasma albumin grazyna urement (mass/volume)Ordered By: Fany Diaz on 01-15-2023 Albumin [Mass/Vol] 3.2 g/dL 3.2-5.0 [facility] Serum or plasma calcium grazyna urement (mass/volume)Ordered By: Fany Diaz on 01-15-2023 Calcium [Mass/Vol] 8.7 mg/dL 8.5-10.1 [facility] Serum or plasma creatinine m easurement (mass/volume)Ordered By: Fany Diaz on 01-15-2023 Creatinine [Mass/Vol] 1.28 mg/dL 0.70-1.30 [facility] Comment on above: The validity of the calculated GFR & GFRAA in patients over 70 years has not been determined. Clinical correlation is essential. Serum or plasma urea nitroge n measurement (mass/volume)Ordered By: Fany Diaz on 01-15-2023 Urea nitrogen [Mass/Vol] 13 mg/dL 7-18 [facility] Urine creatinine measurement (mass/volume)Ordered By: Fany Diaz on 01-15-2023 Creatinine (U) [Mass/Vol] 73.90 mg/dL NO RANGE EST. [facility] Urine protein measurement (m ass/volume)Ordered By: Fany Diaz on 01-15-2023 Protein (U) [Mass/Vol] 16.2 mg/dL 0.0-11.8 [facility] Urine protein/creatinine mas s ratioOrdered By: Fany Diaz on 01-15-2023 Protein/Creatinine (U) [Mass ratio] 219 mg/g CRE 0-200 [facility] Absolute lymphocyte countOrd ered By: Fany Diaz on 12-31-2022 Lymphocytes Auto (Unsp spec) [#/Vol] 1.76 10*3/uL 0.83-4.51 [facility] Basophil percentageOrdered B y: Fany Diaz on 12-31-2022 Basophil percentage 3.7 mg/dL 2.5-4.9 [facility] Basophils/100 WBC (Bld) 0.6 % 0-1 [facility] Chloride [Moles/Vol] 107 mmol/L 98-107 [facility] Eosinophils/100 WBC (Bld) 2.3 % 0-5 [facility] Glucose [Mass/Vol] 117 mg/dL 74-106 [facility] Comment on above: Fasting Glucose resu lt from 100 to 125 mg/dL suggests IMPAIRED HOMEOSTASIS per A.D.A. criteria. Neutrophils (Bld) [#/Vol] 7.8 10*3/uL 2.0-7.7 [facility] Neutrophils/100 WBC (Bld) 72.0 % 47-70 [facility] Potassium [Moles/Vol] 3.8 mmol/L 3.5-5.1 [facility] Sodium [Moles/Vol] 138 mmol/L 136-145 [facility] WBC (Bld) [#/Vol] 10.9 10*3/uL 4.4-11.0 [facility] Bilirubin Test strip Ql (U)O rdered By: Fany Diaz on 12-31-2022 Bilirubin Ql (U) Negative Negative [facility] Blood erythrocytes count (nu mber/volume)Ordered By: Fany Diaz on 12-31-2022 RBC (Bld) [#/Vol] 4.20 10*6/uL 4.6-6.2 [facility] Blood hemoglobin measurement (mass/volume)Ordered By: Fany Diaz on 12-31-2022 Hemoglobin (Bld) [Mass/Vol] 10.8 g/dL 13.0-16.5 [facility] Blood lymphocytes/100 leukoc ytesOrdered By: Fany Diaz on 12-31-2022 Lymphocytes/100 WBC (Bld) 16.1 % 19-41 [facility] Blood monocytes/100 leukocyt esOrdered By: Fany Diaz on 12-31-2022 Monocytes/100 WBC (Bld) 8.5 % 0-10 [facility] Blood platelet mean volumeOr dered By: Fany Diaz on 12-31-2022 Platelet mean volume (Bld) [Entitic vol] 10.1 fL 6.2-12.0 [facility] Determination of erythrocyte mean corpuscular volume (MCV)Ordered By: Fany Diaz on 12-31-2022 MCV (RBC) [Entitic vol] 82.4 fL 80-94 [facility] Hematocrit Auto (Bld) [Volum e fraction]Ordered By: Fany Diaz on 12-31-2022 Hematocrit (Bld) [Volume fraction] 34.6 % 40-54 [facility] Iron measurement (mass/mass) Ordered By: [facility] on 12-31-2022 Iron (Unsp spec) [Mass/Mass] 37 ug/dL 65-175 [facility] Ketones Test strip Ql (U)Ord ered By: Fany Diaz on 12-31-2022 Ketones Ql (U) Negative Negative [facility] - Chemistry and C hemistry - challengeOrdered By: [facility] on 12-31-2022 Albumin [Mass/Vol] 3.4 g/dL 2.9-4.4 [facility] CO2 [Moles/Vol] 22.0 mmol/L 21.0-32.0 [facility] Urea nitrogen/Creatinine [Mass ratio] 21.4 mg/mg 10-20 [facility] - Hematology and Cell countsOrdered By: Fany Diaz on 12-31-2022 Erythrocyte distribution width (RBC) [Entitic vol] 50.4 fL 35.1-43.9 [facility] Erythrocyte distribution width (RBC) [Ratio] 16.8 % 11.6-14.6 [facility] Immature granulocytes/100 WBC (Bld) 0.500 % 0.0-0.9 [facility] Comment on above: IG% - Immature Granu locytes (promyelocytes, myelocytes and metamyelocytes) > 1% indicates that a LEFT SHIFT is Present. MCH (RBC) [Entitic mass] 25.7 pg 27.0-32.0 [facility] Nucleated RBC/100 WBC (Bld) [Ratio] 0 % 0-5 [facility] MCHC Auto (RBC) [Mass/Vol]Or dered By: Fany Diaz on 12-31-2022 MCHC (RBC) [Mass/Vol] 31.2 g/dL 32-36 [facility] Nitrite Test strip Ql (U)Ord ered By: Fany Diaz on 12-31-2022 Nitrite Ql (U) Negative Negative [facility] No Panel InformationOrdered By: Fany Diaz on 12-31-2022 Addendum Document Comment . [facility] Comment on above: The SPE pattern refl ects a polyclonal increase in gammaglobulin. Hypergammaglobulinemia is found in a wide varietyof infectious, non-infectious, and autoimmune diseasestates. Evidence of monoclonal protein is not apparent. Zjozl-0-Kduxdivez 0.2 g/dL 0.0-0.4 [facility] Pwgwc-6-Xzmvrabak 0.9 g/dL 0.4-1.0 [facility] Estimated GFR (MDRD) Amer 75 mL/min >60 [facility] Comment on above: GFR Calc Estimated GFR (MDRD) Non-Af Amer 62 mL/min >60 [facility] Comment on above: Non- GFR Calc Gamma Globulins 1.9 g/dL 0.4-1.8 [facility] Total Iron Binding Capacity 355 ug/dL 250-450 [facility] Vitamin D 25-Hydroxy 33.7 ng/mL [facility] Comment on above: Vitamin D 25(OH) Sta tus Range Deficiency <20 ng/mL (50nmol/L) Insufficiency 20 - 30 ng/mL (50 - 75 nmol/L) Sufficiency 30 - 100 ng/mL (75 - 250 nmol/L) Toxicity >100 ng/mL (>250 nmol/L) Platelets bldOrdered By: Roxi Diaz on 12-31-2022 Platelets (Bld) [#/Vol] 265 10*3/uL 150-450 [facility] Protein Fractions Elph [Inte rp]Ordered By: Fany Diaz on 12-31-2022 Protein Fractions [Interp] Comment . [facility] Comment on above: Protein electrophore sis scan will follow via computer,mail, or electrolysis operator delivery. Protein Test strip Ql (U)Ord ered By: Fany Diaz on 12-31-2022 Protein Ql (U) 15 mg/dl Negative [facility] Serum albumin to globulin ra balaji by protein electrophoresisOrdered By: Fany Diaz on 12-31-2022 Albumin/Globulin Elph [Mass ratio] 0.8 0.7-1.7 [facility] Serum globulin measurement ( mass/volume)Ordered By: Fany Diaz on 12-31-2022 Globulin (S) [Mass/Vol] 4.1 g/dL 2.2-3.9 [facility] Serum or plasma albumin grazyna urement (mass/volume)Ordered By: Fany Diaz on 12-31-2022 Albumin [Mass/Vol] 3.3 g/dL 3.2-5.0 [facility] Serum or plasma beta globuli n measurement by electrophoresis (mass/volume)Ordered By: Fany Diaz on 12-31-2022 Beta globulin Elph [Mass/Vol] 1.1 g/dL 0.7-1.3 [facility] Serum or plasma calcium grazyna urement (mass/volume)Ordered By: Fany Diaz on 12-31-2022 Calcium [Mass/Vol] 8.7 mg/dL 8.5-10.1 [facility] Serum or plasma complement C 3 measurement (mass/volume)Ordered By: Fany Diaz on 12-31-2022 Complement C3 [Mass/Vol] 159 mg/dL 82-167 [facility] Comment on above: Performed at: [address] [id number] Director: Chance Morales PhD, Phone: [phone] Serum or plasma complement C 4 measurement (mass/volume)Ordered By: Fany Diaz on 12-31-2022 Complement C4 [Mass/Vol] 26 mg/dL 12-38 [facility] Serum or plasma creatinine m easurement (mass/volume)Ordered By: Fany Diaz on 12-31-2022 Creatinine [Mass/Vol] 1.26 mg/dL 0.70-1.30 [facility] Comment on above: The validity of the calculated GFR & GFRAA in patients over 70 years has not been determined. Clinical correlation is essential. Serum or plasma ferritin elizabeth surement (mass/volume)Ordered By: Fany Diaz on 12-31-2022 Ferritin [Mass/Vol] 37 ng/mL 26-388 [facility] Serum or plasma iron saturat ion measurement (mass fraction)Ordered By: Fany Diaz on 12-31-2022 Iron saturation [Mass fraction] 10.4 % 15.0-55.0 [facility] Serum or plasma urea nitroge n measurement (mass/volume)Ordered By: aFny Diaz on 12-31-2022 Urea nitrogen [Mass/Vol] 27 mg/dL 7-18 [facility] Serum or plasma uric acid me asurement (mass/volume)Ordered By: Fany Diaz on 12-31-2022 Urate [Mass/Vol] 8.2 mg/dL 3.5-7.2 [facility] Comment on above: The drugs N-Acetylcy steine and Metamizole may falsely depress this assay. Thin prep Papanicolaou smear with manual screeningOrdered By: Fany Diaz on 12-31-2022 Thin prep Papanicolaou smear with manual screening See comment [facility] Comment on above: NOT OBSERVED Total protein bloodOrdered B y: Fany Diaz on 12-31-2022 Protein [Mass/Vol] 7.5 g/dL 6.0-8.5 [facility] Urine blood detectionOrdered By: Fany Diaz on 12-31-2022 RBC Ql (U) Negative Negative [facility] Urine clarityOrdered By: Roxi Diaz on 12-31-2022 Clarity (U) Sl. Cloudy Clear [facility] Urine color determinationOrd ered By: Fany Diaz on 12-31-2022 Color (U) Yellow Yellow [facility] Urine creatinine measurement (mass/volume)Ordered By: Fany Diaz on 12-31-2022 Creatinine (U) [Mass/Vol] 95.50 mg/dL NO RANGE EST. [facility] Urine glucose detectionOrder ed By: Fany iDaz on 12-31-2022 Glucose Ql (U) Normal mg/dl Normal [facility] Urine leukocyte esterase det ection by dipstickOrdered By: Fany Diaz on 12-31-2022 Leukocyte esterase Test strip Ql (U) Negative Negative [facility] Urine pHOrdered By: Fany Diaz on 12-31-2022 pH (U) 5.0 [pH] 5.0 - 8.0 [facility] Urine protein measurement (m ass/volume)Ordered By: Fany Diaz on 12-31-2022 Protein (U) [Mass/Vol] 15.7 mg/dL 0.0-11.8 [facility] Urine specific gravity measu rementOrdered By: [facility] center[facility]il Diaz on 12-31-2022 Specific gravity (U) [Rel density] 1.015 1.002-1.03 0 [facility] Urobilinogen Auto test strip Ql (U)Ordered By: [facility]ox[facility] center[facility]il Diaz on 12-31-2022 Urobilinogen Ql (U) Normal mg/dl Normal [facility] Laboratory - Hematology and Cell countson 12-10-2022 HbA1c (Bld) [Mass fraction] 7.1 % 4.2-6.3 [facility] Laboratory - Chemistry and C hemistry - challengeOrdered By: Brandt Winter on 11-07-2022 Natriuretic peptide B (Bld) [Mass/Vol] 9.7 pg/mL 0-100 [facility] T4 [Mass/Vol] 10.9 ug/dL 4.5-12.1 [facility] No Panel InformationOrdered By: Brandt Winter on 11-07-2022 Thyroid Stimulating Hormone (TSH) 0.27 uIU/mL 0.358-3.74 [facility] Total Triiodothyronine 1.16 ng/mL 0.6-1.81 [facility] Absolute lymphocyte countOrd ered By: Brandt Winter on 10-31-2022 Lymphocytes Auto (Unsp spec) [#/Vol] 1.83 10*3/uL 0.83-4.51 [facility] Basophil percentageOrdered B y: Brandt Winter on 10-31-2022 Basophils/100 WBC (Bld) 0.6 % 0-1 [facility] Bilirubin [Mass/Vol] 0.60 mg/dL 0.20-1.00 [facility] Comment on above: For patients on eltr ombopag therapy, use of Dimension [place] TBIL is not recommended. Chloride [Moles/Vol] 107 mmol/L 98-107 [facility] Eosinophils/100 WBC (Bld) 3.8 % 0-5 [facility] Glucose [Mass/Vol] 119 mg/dL 74-106 [facility] Comment on above: Fasting Glucose resu lt from 100 to 125 mg/dL suggests IMPAIRED HOMEOSTASIS per A.D.A. criteria. Neutrophils (Bld) [#/Vol] 4.7 10*3/uL 2.0-7.7 [facility] Neutrophils/100 WBC (Bld) 59.2 % 47-70 [facility] Potassium [Moles/Vol] 4.9 mmol/L 3.5-5.1 [facility] Protein [Mass/Vol] 8.9 g/dL 6.4-8.2 [facility] Sodium [Moles/Vol] 135 mmol/L 136-145 [facility] WBC (Bld) [#/Vol] 7.9 10*3/uL 4.4-11.0 [facility] Blood erythrocytes count (nu mber/volume)Ordered By: Brandt Winter on 10-31-2022 RBC (Bld) [#/Vol] 3.94 10*6/uL 4.6-6.2 [facility] Blood hemoglobin measurement (mass/volume)Ordered By: Brandt Winter on 10-31-2022 Hemoglobin (Bld) [Mass/Vol] 10.4 g/dL 13.0-16.5 [facility] Blood lymphocytes/100 leukoc ytesOrdered By: Brandt Winter on 10-31-2022 Lymphocytes/100 WBC (Bld) 23.2 % 19-41 [facility] Blood monocytes/100 leukocyt esOrdered By: Brandt Winter on 10-31-2022 Monocytes/100 WBC (Bld) 12.7 % 0-10 [facility] Blood platelet mean volumeOr dered By: Brandt Winter on 10-31-2022 Platelet mean volume (Bld) [Entitic vol] 10.2 fL 6.2-12.0 [facility] Determination of erythrocyte mean corpuscular volume (MCV)Ordered By: Brandt Winter on 10-31-2022 MCV (RBC) [Entitic vol] 81.0 fL 80-94 [facility] Hematocrit Auto (Bld) [Volum e fraction]Ordered By: Brandt Winter on 10-31-2022 Hematocrit (Bld) [Volume fraction] 31.9 % 40-54 [facility] Iron measurement (mass/mass) Ordered By: Brandt Winter on 10-31-2022 Iron (Unsp spec) [Mass/Mass] 35 ug/dL 65-175 [facility] Laboratory - Chemistry and C hemistry - challengeOrdered By: [facility] 10-31-2022 ALP [Catalytic activity/Vol] 103 U/L 45-117 [facility] ALT [Catalytic activity/Vol] 24 U/L 16-61 [facility] CO2 [Moles/Vol] 19.0 mmol/L 21.0-32.0 [facility] Globulin (S) [Mass/Vol] 5.8 g/dL 2.2-4.2 [facility] Urea nitrogen/Creatinine [Mass ratio] 27.0 mg/mg 10-20 [facility] Laboratory - Hematology and Cell countsOrdered By: [facility] on 10-31-2022 Erythrocyte distribution width (RBC) [Entitic vol] 49.3 fL 35.1-43.9 [facility] Erythrocyte distribution width (RBC) [Ratio] 16.7 % 11.6-14.6 [facility] Immature granulocytes/100 WBC (Bld) 0.500 % 0.0-0.9 [facility] Comment on above: IG% - Immature Granu locytes (promyelocytes, myelocytes and metamyelocytes) > 1% indicates that a LEFT SHIFT is Present. MCH (RBC) [Entitic mass] 26.4 pg 27.0-32.0 [facility] Nucleated RBC/100 WBC (Bld) [Ratio] 0 % 0-5 [facility] MCHC Auto (RBC) [Mass/Vol]Or dered By: Brandt Winter on 10-31-2022 MCHC (RBC) [Mass/Vol] 32.6 g/dL 32-36 [facility] No Panel InformationOrdered By: Brandt Winter on 10-31-2022 Estimated GFR (MDRD) Amer 61 mL/min >60 [facility] Comment on above: GFR Calc Estimated GFR (MDRD) Non-Af Amer 50 mL/min >60 [facility] Comment on above: Non- GFR Calc Thyroid Stimulating Hormone (TSH) 0.23 uIU/mL 0.358-3.74 [facility] Total Iron Binding Capacity 274 ug/dL 250-450 [facility] Vitamin D 25-Hydroxy 12.1 ng/mL [facility] Comment on above: Vitamin D 25(OH) Sta tus Range Deficiency <20 ng/mL (50nmol/L) Insufficiency 20 - 30 ng/mL (50 - 75 nmol/L) Sufficiency 30 - 100 ng/mL (75 - 250 nmol/L) Toxicity >100 ng/mL (>250 nmol/L) Platelets bldOrdered By: Ximena Winter on 10-31-2022 Platelets (Bld) [#/Vol] 253 10*3/uL 150-450 [facility] Serum or plasma albumin grazyna urement (mass/volume)Ordered By: Brandt Winter on 10-31-2022 Albumin [Mass/Vol] 3.1 g/dL 3.2-5.0 [facility] Serum or plasma albumin/glob ulin mass ratioOrdered By: Brandt Winter on 10-31-2022 Albumin/Globulin [Mass ratio] 0.5 {ratio} 0.9-2.4 [facility] Serum or plasma calcium grazyna urement (mass/volume)Ordered By: Brandt Winter on 10-31-2022 Calcium [Mass/Vol] 9.1 mg/dL 8.5-10.1 [facility] Serum or plasma creatinine m easurement (mass/volume)Ordered By: Brandt Winter on 10-31-2022 Creatinine [Mass/Vol] 1.52 mg/dL 0.70-1.30 [facility] Comment on above: The validity of the calculated GFR & GFRAA in patients over 70 years has not been determined. Clinical correlation is essential. Serum or plasma ferritin elizabeth surement (mass/volume)Ordered By: Brandt Winter on 10-31-2022 Ferritin [Mass/Vol] 158 ng/mL 26-388 [facility] Serum or plasma iron saturat ion measurement (mass fraction)Ordered By: Brandt Winter on 10-31-2022 Iron saturation [Mass fraction] 12.8 % 15.0-55.0 [facility] Serum or plasma urea nitroge n measurement (mass/volume)Ordered By: Brandt Winter on 10-31-2022 Urea nitrogen [Mass/Vol] 41 mg/dL 7-18 [facility] Thin prep Papanicolaou smear with manual screeningOrdered By: Brandt Winter on 10-31-2022 Thin prep Papanicolaou smear with manual screening 22 U/L 15-37 [facility] Thin prep Papanicolaou smear with manual screening 9 5-15 [facility] Glucose Glucometer (BldC) [M ass/Vol]Ordered By: Dr. Ospina on 08-03-2022 Glucose [Mass/Vol] 343 mg/dL 74-106 [facility] Comment on above: MANAGEMENT OF PATIEN T CARE PER NURSING PROTOCOL Absolute lymphocyte countOrd ered By: Dr. Bell on 08-02-2022 Lymphocytes Auto (Unsp spec) [#/Vol] 1.27 10*3/uL 0.83-4.51 [facility] Basophil percentageOrdered B y: Dr. Bell on 08-02-2022 Basophils/100 WBC (Bld) 0.8 % 0-1 [facility] Bilirubin [Mass/Vol] 0.50 mg/dL 0.20-1.00 [facility] Comment on above: For patients on eltr ombopag therapy, use of Dimension [place] TBIL is not recommended. Chloride [Moles/Vol] 104 mmol/L 98-107 [facility] Cholesterol [Mass/Vol] 133 mg/dL <200 [facility] Comment on above: <200 mg/dL Desirable 200-240 mg/dL Borderline >240 mg/dL High Risk Eosinophils/100 WBC (Bld) 3.1 % 0-5 [facility] Glucose [Mass/Vol] 280 mg/dL 74-106 [facility] Comment on above: Glucose result great er than or equal to 200 mg/dLsuggests DIABETES MELLITUS per A.D.A. criteria. Neutrophils (Bld) [#/Vol] 3.5 10*3/uL 2.0-7.7 [facility] Neutrophils/100 WBC (Bld) 59.7 % 47-70 [facility] Potassium [Moles/Vol] 4.0 mmol/L 3.5-5.1 [facility] Protein [Mass/Vol] 7.6 g/dL 6.4-8.2 [facility] Sodium [Moles/Vol] 135 mmol/L 136-145 [facility] Triglyceride [Mass/Vol] 300 mg/dL <199 [facility] Comment on above: The drugs N-Acetylcy steine and Metamizole may falsely depress this assay.Serum Triglycerides Reference Interval Normal <150 mg/dL Borderline high 150 - 199 mg/dL High 200 - 499 mg/dL Very High > or = 500 mg/dL WBC (Bld) [#/Vol] 5.9 10*3/uL 4.4-11.0 [facility] Blood erythrocytes count (nu mber/volume)Ordered By: Dr. Bell on 08-02-2022 RBC (Bld) [#/Vol] 4.27 10*6/uL 4.6-6.2 [facility] Blood hemoglobin measurement (mass/volume)Ordered By: Dr. Bell on 08-02-2022 Hemoglobin (Bld) [Mass/Vol] 10.7 g/dL 13.0-16.5 [facility] Blood lymphocytes/100 leukoc ytesOrdered By: Dr. Bell on 08-02-2022 Lymphocytes/100 WBC (Bld) 21.5 % 19-41 [facility] Blood monocytes/100 leukocyt esOrdered By: Dr. Bell on 08-02-2022 Monocytes/100 WBC (Bld) 14.4 % 0-10 [facility] Blood platelet mean volumeOr dered By: Dr. Bell on 08-02-2022 Platelet mean volume (Bld) [Entitic vol] 9.9 fL 6.2-12.0 [facility] Determination of erythrocyte mean corpuscular volume (MCV)Ordered By: Dr. Bell on 08-02-2022 MCV (RBC) [Entitic vol] 78.9 fL 80-94 [facility] Hematocrit Auto (Bld) [Volum e fraction]Ordered By: Dr. Bell on 08-02-2022 Hematocrit (Bld) [Volume fraction] 33.7 % 40-54 [facility] Laboratory - Chemistry and C hemistry - challengeOrdered By: Dr. Bell on 08-02-2022 ALP [Catalytic activity/Vol] 118 U/L 45-117 [facility] ALT [Catalytic activity/Vol] 25 U/L 16-61 [facility] CO2 [Moles/Vol] 20.0 mmol/L 21.0-32.0 [facility] Globulin (S) [Mass/Vol] 4.4 g/dL 2.2-4.2 [facility] Urea nitrogen/Creatinine [Mass ratio] 21.7 mg/mg 10-20 [facility] Laboratory - Hematology and Cell countsOrdered By: Dr. Bell on 08-02-2022 Erythrocyte distribution width (RBC) [Entitic vol] 46.5 fL 35.1-43.9 [facility] Erythrocyte distribution width (RBC) [Ratio] 16.4 % 11.6-14.6 [facility] Immature granulocytes/100 WBC (Bld) 0.500 % 0.0-0.9 [facility] Comment on above: IG% - Immature Granu locytes (promyelocytes, myelocytes and metamyelocytes) > 1% indicates that a LEFT SHIFT is Present. MCH (RBC) [Entitic mass] 25.1 pg 27.0-32.0 [facility] Nucleated RBC/100 WBC (Bld) [Ratio] 0 % 0-5 [facility] MCHC Auto (RBC) [Mass/Vol]Or dered By: Dr. Bell on 08-02-2022 MCHC (RBC) [Mass/Vol] 31.8 g/dL 32-36 [facility] No Panel InformationOrdered By: Dr. Bell on 08-02-2022 Estimated Creatinine Clearance Calc 83.01 ml/min [facility] Estimated GFR (MDRD) Amer 102 mL/min >60 [facility] Comment on above: GFR Calc Estimated GFR (MDRD) Non-Af Amer 84 mL/min >60 [facility] Comment on above: Non- GFR Calc Thyroid Stimulating Hormone (TSH) 1.36 uIU/mL 0.358-3.74 [facility] Platelets bldOrdered By: Dr. Bell on 08-02-2022 Platelets (Bld) [#/Vol] 193 10*3/uL 150-450 [facility] Serum or plasma albumin grazyna urement (mass/volume)Ordered By: Dr. Bell on 08-02-2022 Albumin [Mass/Vol] 3.2 g/dL 3.2-5.0 [facility] Serum or plasma albumin/glob ulin mass ratioOrdered By: Dr. Bell on 08-02-2022 Albumin/Globulin [Mass ratio] 0.7 {ratio} 0.9-2.4 [facility] Serum or plasma calcium grazyna urement (mass/volume)Ordered By: Dr. Bell on 08-02-2022 Calcium [Mass/Vol] 9.0 mg/dL 8.5-10.1 [facility] Serum or plasma cholesterol in HDL measurement (mass/volume)Ordered By: Dr. Bell on 08-02-2022 Cholesterol in HDL [Mass/Vol] 33 mg/dL >40 [facility] Comment on above: The drugs N-Acetylcy steine and Metamizole may falsely depress this assay. Reference Range HDL <40 mg/dL Low HDL Cholesterol HDL >or= 60 mg/dL High HDL Cholesterol Serum or plasma cholesterol in VLDL measurement (mass/volume)Ordered By: Dr. Bell on 08-02-2022 Cholesterol in VLDL [Mass/Vol] 60 mg/dL 5-40 [facility] Serum or plasma creatinine m easurement (mass/volume)Ordered By: Dr. Bell on 08-02-2022 Creatinine [Mass/Vol] 0.97 mg/dL 0.70-1.30 [facility] Comment on above: The validity of the calculated GFR & GFRAA in patients over 70 years has not been determined. Clinical correlation is essential. Serum or plasma low density lipoprotein (LDL) cholesterol measurement (mass/volume)Ordered By: Dr. Bell on 08-02-2022 Cholesterol in LDL [Mass/Vol] 40 mg/dL 0-130 [facility] Serum or plasma urea nitroge n measurement (mass/volume)Ordered By: Dr. Bell on 08-02-2022 Urea nitrogen [Mass/Vol] 21 mg/dL 7-18 [facility] Thin prep Papanicolaou smear with manual screeningOrdered By: Dr. Bell on 08-02-2022 Thin prep Papanicolaou smear with manual screening 18 U/L 15-37 [facility] Thin prep Papanicolaou smear with manual screening 11 5-15 [facility] Whole blood hemoglobin A1c/t otal hemoglobin ratio (mass fraction)Ordered By: Dr. Bell on 08-02-2022 HbA1c (Bld) [Mass fraction] 9.6 % 3.8-5.6 [facility] Comment on above: Normal < 5.7 % Predi abetic 5.7 - 6.4 % Diabetic >or= 6.5 % Please note range changes. INR in Blood by Coagulation assayOrdered By: ED PROVIDER on 08-01-2022 INR Coag (Bld) [Relative time] 1.1 {INR} [facility] Laboratory - Chemistry and C hemistry - challengeOrdered By: Dr. Bell on 08-01-2022 Magnesium [Mass/Vol] 1.7 mg/dL 1.6-2.6 [facility] Laboratory - CoagulationOrde red By: ED PROVIDER on 08-01-2022 aPTT Coag (Bld) [Time] 28.7 s 24.1-36.2 [facility] PT Coag (PPP) [Time] 13.8 s 11.7-14.9 [facility] No Panel InformationOrdered By: Dr. Hill on 08-01-2022 Troponin I High Sensitivity 9 pg/mL 3.0-78.0 [facility] Comment on above: Please Note: New Karly t Units and Gender Specific Reference Ranges. For more information see Policy Stat Procedure [place] High Sensitivity Troponin (TNIH) and attachments. Basophil percentageOrdered B y: Oren Sky on 06-26-2022 Chloride [Moles/Vol] 104 mmol/L 98-107 [facility] Glucose [Mass/Vol] 224 mg/dL 74-106 [facility] Comment on above: Glucose result great er than or equal to 200 mg/dLsuggests DIABETES MELLITUS per A.D.A. criteria. Potassium [Moles/Vol] 4.6 mmol/L 3.5-5.1 [facility] Sodium [Moles/Vol] 134 mmol/L 136-145 [facility] Basophil percentageOrdered B y: Coreen Gerardo on 06-26-2022 Cholesterol [Mass/Vol] 145 mg/dL <200 [facility] Comment on above: <200 mg/dL Desirable 200-240 mg/dL Borderline >240 mg/dL High Risk Testosterone [Mass/Vol] 122 ng/dL 264-916 [facility] Comment on above: Adult male reference interval is based on a population ofhealthy nonobese males (BMI <30) between 19 and 39 yearsold. nicol Arroyo.al. JCEM 2017,102;9175-5213. PMID:[id number]. Triglyceride [Mass/Vol] 271 mg/dL <199 [facility] Comment on above: The drugs N-Acetylcy steine and Metamizole may falsely depress this assay.Serum Triglycerides Reference Interval Normal <150 mg/dL Borderline high 150 - 199 mg/dL High 200 - 499 mg/dL Very High > or = 500 mg/dL Free testosterone percentage Ordered By: Coreen Gerardo on 06-26-2022 Testosterone Free/Testosterone.total [Mass fraction] 3.10 % 1.50-4.20 [facility] Comment on above: Performed at: [employer] [facility] [address] [id number] Director: Chance Morales PhD, Phone: [phone] at: [facility] [id number] Director: Rhina Norris MD, Phone: [phone] Laboratory - Chemistry and C hemistry - challengeOrdered By: Oren Sky on 06-26-2022 CO2 [Moles/Vol] 23.0 mmol/L 21.0-32.0 [facility] Urea nitrogen/Creatinine [Mass ratio] 30.7 mg/mg 10- [facility] Laboratory - Chemistry and C hemistry - challengeOrdered By: Coreen Gerardo on 06-26-2022 Free T4 [Mass/Vol] 1.33 ng/dL 0.76-1.46 [facility] No Panel InformationOrdered By: Oren Sky on 06-26-2022 Estimated GFR (MDRD) Amer 60 mL/min >60 [facility] Comment on above: GFR Calc Estimated GFR (MDRD) Non-Af Amer 50 mL/min >60 [facility] Comment on above: Non- GFR Calc No Panel InformationOrdered By: Coreen Gerardo on 06-26-2022 Thyroid Stimulating Hormone (TSH) 1.59 uIU/mL 0.358-3.74 [facility] Urine Microalbumin/Creatinine Ratio 72.5 mg/g CRE <30 [facility] Serum or plasma calcium grazyna urement (mass/volume)Ordered By: Oren Sky on 06-26-2022 Calcium [Mass/Vol] 9.0 mg/dL 8.5-10.1 [facility] Serum or plasma cholesterol in HDL measurement (mass/volume)Ordered By: Coreen Gerardo on 06-26-2022 Cholesterol in HDL [Mass/Vol] 36 mg/dL >40 [facility] Comment on above: The drugs N-Acetylcy steine and Metamizole may falsely depress this assay. Reference Range HDL <40 mg/dL Low HDL Cholesterol HDL >or= 60 mg/dL High HDL Cholesterol Serum or plasma cholesterol in VLDL measurement (mass/volume)Ordered By: Coreen Gerardo on 06-26-2022 Cholesterol in VLDL [Mass/Vol] 54 mg/dL 5-40 [facility] Serum or plasma creatinine m easurement (mass/volume)Ordered By: Oren Sky on 06-26-2022 Creatinine [Mass/Vol] 1.53 mg/dL 0.70-1.30 [facility] Comment on above: The validity of the calculated GFR & GFRAA in patients over 70 years has not been determined. Clinical correlation is essential. Serum or plasma low density lipoprotein (LDL) cholesterol measurement (mass/volume)Ordered By: Coreen Gerardo on 06-26-2022 Cholesterol in LDL [Mass/Vol] 55 mg/dL 0-130 [facility] Serum or plasma testosterone free measurement (mass/volume)Ordered By: Coreen Gerardo on 06-26-2022 Testosterone Free [Mass/Vol] 3.78 ng/dL 5.00-21.00 [facility] Serum or plasma urea nitroge n measurement (mass/volume)Ordered By: Oren Sky on 06-26-2022 Urea nitrogen [Mass/Vol] 47 mg/dL 7-18 [facility] Thin prep Papanicolaou smear with manual screeningOrdered By: Oren Sky on 06-26-2022 Thin prep Papanicolaou smear with manual screening 7 5-15 [facility] Thin prep Papanicolaou smear with manual screeningOrdered By: Coreen Gerardo on 06-26-2022 Thin prep Papanicolaou smear with manual screening 51.1 mg/L NO RANGE EST. [facility] Urine creatinine measurement (mass/volume)Ordered By: Coreen Gerardo on 06-26-2022 Creatinine (U) [Mass/Vol] 70.50 mg/dL NO RANGE EST. [facility] Laboratory - Hematology and Cell countson 06-18-2022 HbA1c (Bld) [Mass fraction] 8.2 % [facility] Basophil percentageOrdered B y: Lydia Segura on 05-18-2022 Chloride [Moles/Vol] 106 mmol/L 98-107 [facility] Glucose [Mass/Vol] 251 mg/dL 74-106 [facility] Comment on above: Glucose result great er than or equal to 200 mg/dLsuggests DIABETES MELLITUS per A.D.A. criteria. Potassium [Moles/Vol] 3.8 mmol/L 3.5-5.1 [facility] Sodium [Moles/Vol] 135 mmol/L 136-145 [facility] Laboratory - Chemistry and C hemistry - challengeOrdered By: Lydia Segura on 05-18-2022 CO2 [Moles/Vol] 21.0 mmol/L 21.0-32.0 [facility] Urea nitrogen/Creatinine [Mass ratio] 19.4 mg/mg - [facility] No Panel InformationOrdered By: Lydia Segura on 05-18-2022 Estimated GFR (MDRD) Amer 90 mL/min >60 [facility] Comment on above: GFR Calc Estimated GFR (MDRD) Non-Af Amer 75 mL/min >60 [facility] Comment on above: Non- GFR Calc Serum or plasma calcium grazyna urement (mass/volume)Ordered By: Lydia Segura on 05-18-2022 Calcium [Mass/Vol] 8.6 mg/dL 8.5-10.1 [facility] Serum or plasma creatinine m easurement (mass/volume)Ordered By: Lydia Segura on 05-18-2022 Creatinine [Mass/Vol] 1.08 mg/dL 0.70-1.30 [facility] Comment on above: The validity of the calculated GFR & GFRAA in patients over 70 years has not been determined. Clinical correlation is essential. Serum or plasma urea nitroge n measurement (mass/volume)Ordered By: Lydia Segura on 05-18-2022 Urea nitrogen [Mass/Vol] 21 mg/dL 7-18 [facility] Thin prep Papanicolaou smear with manual screeningOrdered By: Lydia Segura on 05-18-2022 Thin prep Papanicolaou smear with manual screening 8 5-15 [facility] Absolute lymphocyte countOrd ered By: Oren Sky on 04-17-2022 Lymphocytes Auto (Unsp spec) [#/Vol] 2.25 10*3/uL 0.83-4.51 [facility] Basophil percentageOrdered B y: Oren Sky on 04-17-2022 Basophils/100 WBC (Bld) 1.1 % 0-1 [facility] Chloride [Moles/Vol] 102 mmol/L 98-107 [facility] Eosinophils/100 WBC (Bld) 3.3 % 0-5 [facility] Glucose [Mass/Vol] 263 mg/dL 74-106 [facility] Comment on above: Glucose result great er than or equal to 200 mg/dLsuggests DIABETES MELLITUS per A.D.A. criteria. Neutrophils (Bld) [#/Vol] 5.0 10*3/uL 2.0-7.7 [facility] Neutrophils/100 WBC (Bld) 59.8 % 47-70 [facility] Potassium [Moles/Vol] 4.0 mmol/L 3.5-5.1 [facility] Sodium [Moles/Vol] 135 mmol/L 136-145 [facility] WBC (Bld) [#/Vol] 8.4 10*3/uL 4.4-11.0 [facility] Blood erythrocytes count (nu mber/volume)Ordered By: Oren Sky on 04-17-2022 RBC (Bld) [#/Vol] 4.44 10*6/uL 4.6-6.2 [facility] Blood hemoglobin measurement (mass/volume)Ordered By: Oren Sky on 04-17-2022 Hemoglobin (Bld) [Mass/Vol] 11.1 g/dL 13.0-16.5 [facility] Blood lymphocytes/100 leukoc ytesOrdered By: Oren Sky on 04-17-2022 Lymphocytes/100 WBC (Bld) 26.8 % 19-41 [facility] Blood monocytes/100 leukocyt esOrdered By: Oren Sky on 04-17-2022 Monocytes/100 WBC (Bld) 8.6 % 0-10 [facility] Blood platelet mean volumeOr dered By: Oren Sky on 04-17-2022 Platelet mean volume (Bld) [Entitic vol] 10.3 fL 6.2-12.0 [facility] Determination of erythrocyte mean corpuscular volume (MCV)Ordered By: Oren Sky on 04-17-2022 MCV (RBC) [Entitic vol] 80.2 fL 80-94 [facility] Hematocrit Auto (Bld) [Volum e fraction]Ordered By: Oren Sky on 04-17-2022 Hematocrit (Bld) [Volume fraction] 35.6 % 40-54 [facility] Iron measurement (mass/mass) Ordered By: Oren Sky on 04-17-2022 Iron (Unsp spec) [Mass/Mass] 48 ug/dL 65-175 [facility] Laboratory - Chemistry and C hemistry - challengeOrdered By: Oren Sky on 04-17-2022 CO2 [Moles/Vol] 22.0 mmol/L 21.0-32.0 [facility] Natriuretic peptide B (Bld) [Mass/Vol] 37.2 pg/mL 0-100 [facility] Urea nitrogen/Creatinine [Mass ratio] 25.8 mg/mg 10-20 [facility] Laboratory - Hematology and Cell countsOrdered By: Oren Sky on 04-17-2022 Erythrocyte distribution width (RBC) [Entitic vol] 50.0 fL 35.1-43.9 [facility] Erythrocyte distribution width (RBC) [Ratio] 17.2 % 11.6-14.6 [facility] Immature granulocytes/100 WBC (Bld) 0.400 % 0.0-0.9 [facility] Comment on above: IG% - Immature Granu locytes (promyelocytes, myelocytes and metamyelocytes) > 1% indicates that a LEFT SHIFT is Present. MCH (RBC) [Entitic mass] 25.0 pg 27.0-32.0 [facility] Nucleated RBC/100 WBC (Bld) [Ratio] 0 % 0-5 [facility] MCHC Auto (RBC) [Mass/Vol]Or dered By: Oren Sky on 04-17-2022 MCHC (RBC) [Mass/Vol] 31.2 g/dL 32-36 [facility] No Panel InformationOrdered By: Oren Sky on 04-17-2022 Estimated GFR (MDRD) Amer 77 mL/min >60 [facility] Comment on above: GFR Calc Estimated GFR (MDRD) Non-Af Amer 64 mL/min >60 [facility] Comment on above: Non- GFR Calc Total Iron Binding Capacity 350 ug/dL 250-450 [facility] Platelets bldOrdered By: Jose Sky on 04-17-2022 Platelets (Bld) [#/Vol] 268 10*3/uL 150-450 [facility] Serum or plasma calcium grazyna urement (mass/volume)Ordered By: Oren Sky on 04-17-2022 Calcium [Mass/Vol] 8.9 mg/dL 8.5-10.1 [facility] Serum or plasma creatinine m easurement (mass/volume)Ordered By: Oren Sky on 04-17-2022 Creatinine [Mass/Vol] 1.24 mg/dL 0.70-1.30 [facility] Comment on above: The validity of the calculated GFR & GFRAA in patients over 70 years has not been determined. Clinical correlation is essential. Serum or plasma iron saturat ion measurement (mass fraction)Ordered By: Oren Sky on 04-17-2022 Iron saturation [Mass fraction] 13.7 % 15.0-55.0 [facility] Serum or plasma urea nitroge n measurement (mass/volume)Ordered By: Oren Sky on 04-17-2022 Urea nitrogen [Mass/Vol] 32 mg/dL 7-18 [facility] Thin prep Papanicolaou smear with manual screeningOrdered By: Oren Sky on 04-17-2022 Thin prep Papanicolaou smear with manual screening 11 5-15 [facility] Laboratory - Hematology and Cell countson 01-15-2022 HbA1c (Bld) [Mass fraction] 8.3 % [facility] Absolute lymphocyte counton 09-04-2021 Lymphocytes Auto (Unsp spec) [#/Vol] 1.59 10*3/uL 0.83-4.51 [facility] Work Phone: Basophil percentageon 2021 Basophils/100 WBC (Bld) 0.5 % 0-1 [facility] Work Phone: Bilirubin [Mass/Vol] 0.60 mg/dL 0.20-1.00 [facility] Work Phone: Comment on above: For patients on eltr ombopag therapy, use of Dimension [place] TBIL is not recommended. Chloride [Moles/Vol] 107 mmol/L 98-107 [facility] Work Phone: Eosinophils/100 WBC (Bld) 3.6 % 0-5 [facility] Work Phone: Glucose [Mass/Vol] 174 mg/dL 74-106 [facility] Work Phone: Comment on above: Fasting Glucose resu lt greater than or equal to 126 mg/dL suggests DIABETES MELLITUS per A.D.A. criteria. Neutrophils (Bld) [#/Vol] 4.8 10*3/uL 2.0-7.7 [facility] Work Phone: Neutrophils/100 WBC (Bld) 63.3 % 47-70 [facility] Work Phone: Potassium [Moles/Vol] 4.0 mmol/L 3.5-5.1 [facility] Work Phone: Protein [Mass/Vol] 7.6 g/dL 6.4-8.2 [facility] Work Phone: Sodium [Moles/Vol] 138 mmol/L 136-145 [facility] Work Phone: WBC (Bld) [#/Vol] 7.5 10*3/uL 4.4-11.0 [facility] Work Phone: Blood erythrocytes count (nu mber/volume)on 09-04-2021 RBC (Bld) [#/Vol] 4.26 10*6/uL 4.6-6.2 [facility] Work Phone: Blood hemoglobin measurement (mass/volume)on 09-04-2021 Hemoglobin (Bld) [Mass/Vol] 11.0 g/dL 13.0-16.5 [facility] Work Phone: Blood lymphocytes/100 leukoc yteson 09-04-2021 Lymphocytes/100 WBC (Bld) 21.2 % 19-41 [facility] Work Phone: Blood monocytes/100 leukocyt eson 09-04-2021 Monocytes/100 WBC (Bld) 10.7 % 0-10 [facility] Work Phone: Blood platelet mean volumeon 09-04-2021 Platelet mean volume (Bld) [Entitic vol] 10.2 fL 6.2-12.0 [facility] Work Phone: Determination of erythrocyte mean corpuscular volume (MCV)on 09-04-2021 MCV (RBC) [Entitic vol] 81.5 fL 80-94 [facility] Work Phone: Hematocrit Auto (Bld) [Volum e fraction]on 09-04-2021 Hematocrit (Bld) [Volume fraction] 34.7 % 40-54 [facility] Work Phone: Laboratory - Chemistry and C hemistry - challengeon 09-04-2021 ALP [Catalytic activity/Vol] 92 U/L 45-117 [facility] Work Phone: ALT [Catalytic activity/Vol] 23 U/L 16-61 [facility] Work Phone: CO2 [Moles/Vol] 26.0 mmol/L 21.0-32.0 [facility] Work Phone: [phone] Globulin (S) [Mass/Vol] 4.5 g/dL 2.2-4.2 [facility] Work Phone: Natriuretic peptide B (Bld) [Mass/Vol] 105.8 pg/mL 0-100 [facility] Work Phone: Urea nitrogen/Creatinine [Mass ratio] 25.2 mg/mg 10-20 [facility] Work Phone: [phone] Laboratory - Hematology and Cell countson 09-04-2021 Erythrocyte distribution width (RBC) [Entitic vol] 46.4 fL 35.1-43.9 [facility] Work Phone: [phone] Erythrocyte distribution width (RBC) [Ratio] 15.7 % 11.6-14.6 [facility] Work Phone: [phone] Immature granulocytes/100 WBC (Bld) 0.700 % 0.0-0.9 [facility] Work Phone: [phone] Comment on above: IG% - Immature Granu locytes (promyelocytes, myelocytes and metamyelocytes) > 1% indicates that a LEFT SHIFT is Present. MCH (RBC) [Entitic mass] 25.8 pg 27.0-32.0 [facility] Work Phone: [phone] Nucleated RBC/100 WBC (Bld) [Ratio] 0 % 0-5 [facility] Work Phone: [phone] MCHC Auto (RBC) [Mass/Vol]on 09-04-2021 MCHC (RBC) [Mass/Vol] 31.7 g/dL 32-36 [facility] Work Phone: [phone] No Panel Informationon 09-04 Troponin I High Sensitivity 16 pg/mL 3.0-78.0 [facility] Work Phone: [phone] Comment on above: Please Note: New Karly t Units and Gender Specific Reference Ranges. For more information see Policy Stat Procedure [place] High Sensitivity Troponin (TNIH) and attachments. Estimated Creatinine Clearance Calc 92.55 ml/min [facility] Work Phone: [phone] Estimated GFR (MDRD) Amer 115 mL/min >60 [facility] Work Phone: [phone] Comment on above: GFR Calc Estimated GFR (MDRD) Non-Af Amer 95 mL/min >60 [facility] Work Phone: [phone] Comment on above: Non- GFR Calc Platelets bldon 09-04-2021 Platelets (Bld) [#/Vol] 200 10*3/uL 150-450 [facility] Work Phone: [phone] Serum or plasma albumin grazyna urement (mass/volume)on 09-04-2021 Albumin [Mass/Vol] 3.1 g/dL 3.2-5.0 [facility] Work Phone: [phone] Serum or plasma albumin/glob ulin mass ratioon 09-04-2021 Albumin/Globulin [Mass ratio] 0.7 {ratio} 0.9-2.4 [facility] Work Phone: [phone] Serum or plasma calcium grazyna urement (mass/volume)on 09-04-2021 Calcium [Mass/Vol] 8.5 mg/dL 8.5-10.1 [facility] Work Phone: [phone] Serum or plasma creatinine m easurement (mass/volume)on 09-04-2021 Creatinine [Mass/Vol] 0.87 mg/dL 0.70-1.30 [facility] Work Phone: [phone] Comment on above: The validity of the calculated GFR & GFRAA in patients over 70 years has not been determined. Clinical correlation is essential. Serum or plasma urea nitroge n measurement (mass/volume)on 09-04-2021 Urea nitrogen [Mass/Vol] 22 mg/dL 7-18 [facility] Work Phone: [phone] Thin prep Papanicolaou smear with manual screeningon 09-04-2021 Thin prep Papanicolaou smear with manual screening 18 U/L 15-37 [facility] Work Phone: [phone] Thin prep Papanicolaou smear with manual screening 5 5-15 [facility] Work Phone: [phone] Absolute lymphocyte counton 07-16-2021 Lymphocytes Auto (Unsp spec) [#/Vol] 1.10 10*3/uL 0.83-4.51 [facility] Work Phone: [phone] Basophil percentageon 2021 Basophils/100 WBC (Bld) 0.7 % 0-1 [facility] Work Phone: [phone] Chloride [Moles/Vol] 105 mmol/L 98-107 [facility] Work Phone: Eosinophils/100 WBC (Bld) 3.2 % 0-5 [facility] Work Phone: Glucose [Mass/Vol] 283 mg/dL 74-106 [facility] Work Phone: Comment on above: Glucose result great er than or equal to 200 mg/dLsuggests DIABETES MELLITUS per A.D.A. criteria. Neutrophils (Bld) [#/Vol] 6.8 10*3/uL 2.0-7.7 [facility] Work Phone: Neutrophils/100 WBC (Bld) 76.6 % 47-70 [facility] Work Phone: Potassium [Moles/Vol] 3.9 mmol/L 3.5-5.1 [facility] Work Phone: Sodium [Moles/Vol] 138 mmol/L 136-145 [facility] Work Phone: WBC (Bld) [#/Vol] 8.8 10*3/uL 4.4-11.0 [facility] Work Phone: Blood erythrocytes count (nu mber/volume)on 07-16-2021 RBC (Bld) [#/Vol] 4.49 10*6/uL 4.6-6.2 [facility] Work Phone: Blood hemoglobin measurement (mass/volume)on 07-16-2021 Hemoglobin (Bld) [Mass/Vol] 11.8 g/dL 13.0-16.5 [facility] Work Phone: Blood lymphocytes/100 leukoc yteson 07-16-2021 Lymphocytes/100 WBC (Bld) 12.5 % 19-41 [facility] Work Phone: Blood monocytes/100 leukocyt eson 07-16-2021 Monocytes/100 WBC (Bld) 6.7 % 0-10 [facility] Work Phone: Blood platelet mean volumeon 07-16-2021 Platelet mean volume (Bld) [Entitic vol] 10.2 fL 6.2-12.0 [facility] Work Phone: [phone] Determination of erythrocyte mean corpuscular volume (MCV)on 07-16-2021 MCV (RBC) [Entitic vol] 82.9 fL 80-94 [facility] Work Phone: [phone] Hematocrit Auto (Bld) [Volum e fraction]on 07-16-2021 Hematocrit (Bld) [Volume fraction] 37.2 % 40-54 [facility] Work Phone: [phone] Laboratory - Chemistry and C hemistry - challengeon 07-16-2021 CO2 [Moles/Vol] 24.0 mmol/L 21.0-32.0 [facility] Work Phone: [phone] Natriuretic peptide B (Bld) [Mass/Vol] 59.2 pg/mL 0-100 [facility] Work Phone: [phone] Urea nitrogen/Creatinine [Mass ratio] 17.5 mg/mg 10-20 [facility] Work Phone: [phone] Laboratory - Hematology and Cell countson 07-16-2021 Erythrocyte distribution width (RBC) [Entitic vol] 47.2 fL 35.1-43.9 [facility] Work Phone: [phone] Erythrocyte distribution width (RBC) [Ratio] 15.9 % 11.6-14.6 [facility] Work Phone: [phone] Immature granulocytes/100 WBC (Bld) 0.300 % 0.0-0.9 [facility] Work Phone: [phone] Comment on above: IG% - Immature Granu locytes (promyelocytes, myelocytes and metamyelocytes) > 1% indicates that a LEFT SHIFT is Present. MCH (RBC) [Entitic mass] 26.3 pg 27.0-32.0 [facility] Work Phone: [phone] Nucleated RBC/100 WBC (Bld) [Ratio] 0 % 0-5 [facility] Work Phone: [phone] MCHC Auto (RBC) [Mass/Vol]on 07-16-2021 MCHC (RBC) [Mass/Vol] 31.7 g/dL 32-36 [facility] Work Phone: No Panel Informationon 07-16 Estimated Creatinine Clearance Calc 64.68 ml/min [facility] Work Phone: Estimated GFR (MDRD) Amer 76 mL/min >60 [facility] Work Phone: Comment on above: GFR Calc Estimated GFR (MDRD) Non-Af Amer 63 mL/min >60 [facility] Work Phone: Comment on above: Non- GFR Calc Troponin I High Sensitivity 10 pg/mL 3.0-78.0 [facility] Work Phone: Comment on above: Please Note: New Karly t Units and Gender Specific Reference Ranges. For more information see Policy Stat Procedure [place] High Sensitivity Troponin (TNIH) and attachments. Platelets bldon 07-16-2021 Platelets (Bld) [#/Vol] 209 10*3/uL 150-450 [facility] Work Phone: Serum or plasma calcium grazyna urement (mass/volume)on 07-16-2021 Calcium [Mass/Vol] 8.7 mg/dL 8.5-10.1 [facility] Work Phone: Serum or plasma creatinine m easurement (mass/volume)on 07-16-2021 Creatinine [Mass/Vol] 1.26 mg/dL 0.70-1.30 [facility] Work Phone: Comment on above: The validity of the calculated GFR & GFRAA in patients over 70 years has not been determined. Clinical correlation is essential. Serum or plasma urea nitroge n measurement (mass/volume)on 07-16-2021 Urea nitrogen [Mass/Vol] 22 mg/dL 7-18 [facility] Work Phone: Thin prep Papanicolaou smear with manual screeningon 07-16-2021 Thin prep Papanicolaou smear with manual screening 9 5-15 [facility] Work Phone: [phone] Absolute lymphocyte counton 07-12-2021 Lymphocytes Auto (Unsp spec) [#/Vol] 1.80 10*3/uL 0.83-4.51 [facility] Work Phone: Basophil percentageon 2021 Basophils/100 WBC (Bld) 0.9 % 0-1 [facility] Work Phone: Chloride [Moles/Vol] 103 mmol/L 98-107 [facility] Work Phone: Eosinophils/100 WBC (Bld) 5.6 % 0-5 [facility] Work Phone: Glucose [Mass/Vol] 182 mg/dL 74-106 [facility] Work Phone: Comment on above: Fasting Glucose resu lt greater than or equal to 126 mg/dL suggests DIABETES MELLITUS per A.D.A. criteria. Neutrophils (Bld) [#/Vol] 5.1 10*3/uL 2.0-7.7 [facility] Work Phone: Neutrophils/100 WBC (Bld) 61.8 % 47-70 [facility] Work Phone: Potassium [Moles/Vol] 3.6 mmol/L 3.5-5.1 [facility] Work Phone: Sodium [Moles/Vol] 135 mmol/L 136-145 [facility] Work Phone: WBC (Bld) [#/Vol] 8.2 10*3/uL 4.4-11.0 [facility] Work Phone: Blood erythrocytes count (nu mber/volume)on 07-12-2021 RBC (Bld) [#/Vol] 4.31 10*6/uL 4.6-6.2 [facility] Work Phone: Blood hemoglobin measurement (mass/volume)on 07-12-2021 Hemoglobin (Bld) [Mass/Vol] 11.1 g/dL 13.0-16.5 [facility] Work Phone: Blood lymphocytes/100 leukoc yteson 07-12-2021 Lymphocytes/100 WBC (Bld) 22.0 % 19-41 [facility] Work Phone: Blood monocytes/100 leukocyt eson 07-12-2021 Monocytes/100 WBC (Bld) 9.3 % 0-10 [facility] Work Phone: [phone] Blood platelet mean volumeon 07-12-2021 Platelet mean volume (Bld) [Entitic vol] 10.2 fL 6.2-12.0 [facility] Work Phone: [phone] Determination of erythrocyte mean corpuscular volume (MCV)on 07-12-2021 MCV (RBC) [Entitic vol] 80.5 fL 80-94 [facility] Work Phone: [phone] Hematocrit Auto (Bld) [Volum e fraction]on 07-12-2021 Hematocrit (Bld) [Volume fraction] 34.7 % 40-54 [facility] Work Phone: Laboratory - Chemistry and C hemistry - challengeon 07-12-2021 CO2 [Moles/Vol] 24.0 mmol/L 21.0-32.0 [facility] Work Phone: Natriuretic peptide B (Bld) [Mass/Vol] 93.4 pg/mL 0-100 [facility] Work Phone: [phone] Urea nitrogen/Creatinine [Mass ratio] 22.0 mg/mg 10-20 [facility] Work Phone: [phone] Laboratory - Hematology and Cell countson 07-12-2021 Erythrocyte distribution width (RBC) [Entitic vol] 45.5 fL 35.1-43.9 [facility] Work Phone: [phone] Erythrocyte distribution width (RBC) [Ratio] 15.9 % 11.6-14.6 [facility] Work Phone: [phone] Immature granulocytes/100 WBC (Bld) 0.400 % 0.0-0.9 [facility] Work Phone: [phone] Comment on above: IG% - Immature Granu locytes (promyelocytes, myelocytes and metamyelocytes) > 1% indicates that a LEFT SHIFT is Present. MCH (RBC) [Entitic mass] 25.8 pg 27.0-32.0 [facility] Work Phone: Nucleated RBC/100 WBC (Bld) [Ratio] 0 % 0-5 [facility] Work Phone: MCHC Auto (RBC) [Mass/Vol]on 07-12-2021 MCHC (RBC) [Mass/Vol] 32.0 g/dL 32-36 [facility] Work Phone: No Panel Informationon 07-12 Estimated GFR (MDRD) Amer 99 mL/min >60 [facility] Work Phone: Comment on above: GFR Calc Estimated GFR (MDRD) Non-Af Amer 82 mL/min >60 [facility] Work Phone: Comment on above: Non- GFR Calc Thyroid Stimulating Hormone (TSH) 1.06 uIU/mL 0.358-3.74 [facility] Work Phone: Platelets bldon 07-12-2021 Platelets (Bld) [#/Vol] 223 10*3/uL 150-450 [facility] Work Phone: Serum or plasma calcium grazyna urement (mass/volume)on 07-12-2021 Calcium [Mass/Vol] 8.6 mg/dL 8.5-10.1 [facility] Work Phone: [phone] Serum or plasma creatinine m easurement (mass/volume)on 07-12-2021 Creatinine [Mass/Vol] 1.00 mg/dL 0.70-1.30 [facility] Work Phone: Comment on above: The validity of the calculated GFR & GFRAA in patients over 70 years has not been determined. Clinical correlation is essential. Serum or plasma urea nitroge n measurement (mass/volume)on 07-12-2021 Urea nitrogen [Mass/Vol] 22 mg/dL 7-18 [facility] Work Phone: Thin prep Papanicolaou smear with manual screeningon 07-12-2021 Thin prep Papanicolaou smear with manual screening 8 5-15 [facility] Work Phone: Laboratory - Hematology and Cell countson 06-29-2021 HbA1c (Bld) [Mass fraction] 8.9 % [facility] Work Phone: Absolute lymphocyte counton 06-19-2021 Lymphocytes Auto (Unsp spec) [#/Vol] 1.28 10*3/uL 0.83-4.51 [facility] Work Phone: Basophil percentageon 2021 Lactate [Moles/Vol] 2.1 mmol/L 0.4-2.0 [facility] Work Phone: Comment on above: Critical Result(s) C alled at: 14:08:57 06/19/2021 by: Danae Zaldivar to Marlen. Results read back by same. Basophil percentage 0 SEEN /hpf 0-5 [facility] Work Phone: Basophils/100 WBC (Bld) 0.5 % 0-1 [facility] Work Phone: Chloride [Moles/Vol] 104 mmol/L 98-107 [facility] Work Phone: Eosinophils/100 WBC (Bld) 2.6 % 0-5 [facility] Work Phone: [phone] Glucose [Mass/Vol] 191 mg/dL 74-106 [facility] Work Phone: Comment on above: Fasting Glucose resu lt greater than or equal to 126 mg/dL suggests DIABETES MELLITUS per A.D.A. criteria. Neutrophils (Bld) [#/Vol] 5.1 10*3/uL 2.0-7.7 [facility] Work Phone: Neutrophils/100 WBC (Bld) 69.5 % 47-70 [facility] Work Phone: Potassium [Moles/Vol] 3.9 mmol/L 3.5-5.1 [facility] Work Phone: Sodium [Moles/Vol] 137 mmol/L 136-145 [facility] Work Phone: WBC (Bld) [#/Vol] 7.4 10*3/uL 4.4-11.0 [facility] Work Phone: Bilirubin Test strip Ql (U)o n 06-19-2021 Bilirubin Ql (U) Negative Negative [facility] Work Phone: Blood erythrocytes count (nu mber/volume)on 06-19-2021 RBC (Bld) [#/Vol] 4.54 10*6/uL 4.6-6.2 [facility] Work Phone: Blood hemoglobin measurement (mass/volume)on 06-19-2021 Hemoglobin (Bld) [Mass/Vol] 12.0 g/dL 13.0-16.5 [facility] Work Phone: Blood lymphocytes/100 leukoc yteson 06-19-2021 Lymphocytes/100 WBC (Bld) 17.3 % 19-41 [facility] Work Phone: Blood monocytes/100 leukocyt eson 06-19-2021 Monocytes/100 WBC (Bld) 9.6 % 0-10 [facility] Work Phone: Blood platelet mean volumeon 06-19-2021 Platelet mean volume (Bld) [Entitic vol] 9.7 fL 6.2-12.0 [facility] Work Phone: Determination of erythrocyte mean corpuscular volume (MCV)on 06-19-2021 MCV (RBC) [Entitic vol] 79.7 fL 80-94 [facility] Work Phone: Hematocrit Auto (Bld) [Volum e fraction]on 06-19-2021 Hematocrit (Bld) [Volume fraction] 36.2 % 40-54 [facility] Work Phone: Ketones Test strip Ql (U)on 06-19-2021 Ketones Ql (U) Negative Negative [facility] Work Phone: Laboratory - Chemistry and C hemistry - challengeon 06-19-2021 CO2 [Moles/Vol] 26.0 mmol/L 21.0-32.0 [facility] Work Phone: [phone] Natriuretic peptide B (Bld) [Mass/Vol] 155.0 pg/mL 0-100 [facility] Work Phone: [phone] Urea nitrogen/Creatinine [Mass ratio] 14.6 mg/mg 10-20 [facility] Work Phone: [phone] Laboratory - Hematology and Cell countson 06-19-2021 Erythrocyte distribution width (RBC) [Entitic vol] 43.1 fL 35.1-43.9 [facility] Work Phone: [phone] Erythrocyte distribution width (RBC) [Ratio] 15.0 % 11.6-14.6 [facility] Work Phone: [phone] Immature granulocytes/100 WBC (Bld) 0.500 % 0.0-0.9 [facility] Work Phone: [phone] Comment on above: IG% - Immature Granu locytes (promyelocytes, myelocytes and metamyelocytes) > 1% indicates that a LEFT SHIFT is Present. MCH (RBC) [Entitic mass] 26.4 pg 27.0-32.0 [facility] Work Phone: [phone] Nucleated RBC/100 WBC (Bld) [Ratio] 0 % 0-5 [facility] Work Phone: [phone] MCHC Auto (RBC) [Mass/Vol]on 06-19-2021 MCHC (RBC) [Mass/Vol] 33.1 g/dL 32-36 [facility] Work Phone: [phone] Mucus LM Ql (Urine sed)on Mucus Ql (Urine sed) 0 SEEN /hpf [facility] Work Phone: [phone] Nitrite Test strip Ql (U)on 06-19-2021 Nitrite Ql (U) Negative Negative [facility] Work Phone: [phone] No Panel Informationon 06-19 Troponin I High Sensitivity 31 pg/mL 3.0-78.0 [facility] Work Phone: [phone] Comment on above: Please Note: New Karly t Units and Gender Specific Reference Ranges. For more information see Policy Stat Procedure [place] High Sensitivity Troponin (TNIH) and attachments. Estimated Creatinine Clearance Calc 84.90 ml/min [facility] Work Phone: Estimated GFR (MDRD) Amer 104 mL/min >60 [facility] Work Phone: Comment on above: GFR Calc Estimated GFR (MDRD) Non-Af Amer 86 mL/min >60 [facility] Work Phone: [phone] Comment on above: Non- GFR Calc Platelets bldon 06-19-2021 Platelets (Bld) [#/Vol] 216 10*3/uL 150-450 [facility] Work Phone: [phone] Protein Test strip Ql (U)on 06-19-2021 Protein Ql (U) 30 mg/dl Negative [facility] Work Phone: [phone] Serum or plasma calcium grazyna urement (mass/volume)on 06-19-2021 Calcium [Mass/Vol] 8.8 mg/dL 8.5-10.1 [facility] Work Phone: [phone] Serum or plasma creatinine m easurement (mass/volume)on 06-19-2021 Creatinine [Mass/Vol] 0.96 mg/dL 0.70-1.30 [facility] Work Phone: Comment on above: The validity of the calculated GFR & GFRAA in patients over 70 years has not been determined. Clinical correlation is essential. Serum or plasma urea nitroge n measurement (mass/volume)on 06-19-2021 Urea nitrogen [Mass/Vol] 14 mg/dL 7-18 [facility] Work Phone: [phone] Squamous epithelial cells de tection in urine sediment by light microscopyon 06-19-2021 Epithelial cells.squamous LM Ql (Urine sed) 0 SEEN /hpf 0-5 [facility] Work Phone: [phone] Thin prep Papanicolaou smear with manual screeningon 06-19-2021 Thin prep Papanicolaou smear with manual screening 7 5-15 [facility] Work Phone: [phone] Urine blood detectionon 05-31 RBC Ql (U) Negative Negative [facility] Work Phone: RBC Ql (U) 0 SEEN /hpf 0-5 [facility] Work Phone: Urine clarityon 06-19-2021 Clarity (U) Clear Clear [facility] Work Phone: Urine color determinationon 06-19-2021 Color (U) Yellow Yellow [facility] Work Phone: Urine glucose detectionon Glucose Ql (U) Normal mg/dl Normal [facility] Work Phone: Urine leukocyte esterase det ection by dipstickon 06-19-2021 Leukocyte esterase Test strip Ql (U) Negative Negative [facility] Work Phone: Urine pHon 06-19-2021 pH (U) 6.0 [pH] 5.0 - 8.0 [facility] Work Phone: Urine sediment bacteria coun t by microscopy (number/high power field)on 06-19-2021 Bacteria LM.HPF (Urine sed) [#/Area] 0 /[HPF] None Seen [facility] Work Phone: Urine specific gravity measu rementon 06-19-2021 Specific gravity (U) [Rel density] 1.015 1.002-1.03 0 [facility] Work Phone: Urobilinogen Auto test strip Ql (U)on 06-19-2021 Urobilinogen Ql (U) Normal mg/dl Normal [facility] Work Phone: No Panel Informationon 06-02 Urine Microalbumin/Creatinine Ratio 40.2 mg/g CRE <30 [facility] Work Phone: Thin prep Papanicolaou smear with manual screeningon 06-02-2021 Thin prep Papanicolaou smear with manual screening 22.8 mg/L NO RANGE EST. [facility] Work Phone: Urine creatinine measurement (mass/volume)on 06-02-2021 Creatinine (U) [Mass/Vol] 56.70 mg/dL NO RANGE EST. [facility] Work Phone: Basophil percentageon 2021 Bilirubin [Mass/Vol] 0.40 mg/dL 0.20-1.00 [facility] Work Phone: Comment on above: For patients on eltr ombopag therapy, use of Dimension [place] TBIL is not recommended. Chloride [Moles/Vol] 102 mmol/L 98-107 [facility] Work Phone: Cholesterol [Mass/Vol] 189 mg/dL <200 [facility] Work Phone: Comment on above: <200 mg/dL Desirable 200-240 mg/dL Borderline >240 mg/dL High Risk Glucose [Mass/Vol] 285 mg/dL 74-106 [facility] Work Phone: Comment on above: Glucose result great er than or equal to 200 mg/dLsuggests DIABETES MELLITUS per A.D.A. criteria. Potassium [Moles/Vol] 4.1 mmol/L 3.5-5.1 [facility] Work Phone: Protein [Mass/Vol] 8.1 g/dL 6.4-8.2 [facility] Work Phone: Sodium [Moles/Vol] 133 mmol/L 136-145 [facility] Work Phone: Triglyceride [Mass/Vol] 526 mg/dL <199 [facility] Work Phone: Comment on above: The [...] 06-01-2021 ALP [Catalytic activity/Vol] 96 U/L 45-117 [facility] Work Phone: ALT [Catalytic activity/Vol] 31 U/L 16-61 [facility] Work Phone: [phone] CO2 [Moles/Vol] 24.0 mmol/L 21.0-32.0 [facility] Work Phone: [phone] Globulin (S) [Mass/Vol] 4.6 g/dL 2.2-4.2 [facility] Work Phone: Urea nitrogen/Creatinine [Mass ratio] 22.3 mg/mg 10-20 [facility] Work Phone: [phone] Laboratory - Hematology and Cell countson 06-01-2021 HbA1c (Bld) [Mass fraction] 9.3 % [facility] Work Phone: No Panel Informationon 06-01 Estimated GFR (MDRD) Amer 73 mL/min >60 [facility] Work Phone: Comment on above: GFR Calc Estimated GFR (MDRD) Non-Af Amer 60 mL/min >60 [facility] Work Phone: Comment on above: Non- GFR Calc Serum or plasma albumin grazyna urement (mass/volume)on 06-01-2021 Albumin [Mass/Vol] 3.5 g/dL 3.2-5.0 [facility] Work Phone: Serum or plasma albumin/glob ulin mass ratioon 06-01-2021 Albumin/Globulin [Mass ratio] 0.8 {ratio} 0.9-2.4 [facility] Work Phone: [phone] Serum or plasma calcium grazyna urement (mass/volume)on 06-01-2021 Calcium [Mass/Vol] 9.1 mg/dL 8.5-10.1 [facility] Work Phone: [phone] Serum or plasma cholesterol in HDL measurement (mass/volume)on 06-01-2021 Cholesterol in HDL [Mass/Vol] 33 mg/dL >40 [facility] Work Phone: Comment on above: The drugs N-Acetylcy steine and Metamizole may falsely depress this assay. Reference Range HDL <40 mg/dL Low HDL Cholesterol HDL >or= 60 mg/dL High HDL Cholesterol Serum or plasma cholesterol in VLDL measurement (mass/volume)on 06-01-2021 Cholesterol in VLDL [Mass/Vol] [facility] Work Phone: Comment on above: Test not performed Serum or plasma creatinine m easurement (mass/volume)on 06-01-2021 Creatinine [Mass/Vol] 1.30 mg/dL 0.70-1.30 [facility] Work Phone: Comment on above: The validity of the calculated GFR & GFRAA in patients over 70 years has not been determined. Clinical correlation is essential. Serum or plasma low density lipoprotein (LDL) cholesterol measurement (mass/volume)on 06-01-2021 Cholesterol in LDL [Mass/Vol] [facility] Work Phone: Comment on above: Test not performed Serum or plasma urea nitroge n measurement (mass/volume)on 06-01-2021 Urea nitrogen [Mass/Vol] 29 mg/dL 7-18 [facility] Work Phone: Thin prep Papanicolaou smear with manual screeningon 06-01-2021 Thin prep Papanicolaou smear with manual screening 24 U/L 15-37 [facility] Work Phone: Thin prep Papanicolaou smear with manual screening 7 5-15 [facility] Work Phone: Absolute lymphocyte counton 05-30-2021 Lymphocytes Auto (Unsp spec) [#/Vol] 1.58 10*3/uL 0.83-4.51 [facility] Work Phone: Basophil percentageon 2021 Basophils/100 WBC (Bld) 0.7 % 0-1 [facility] Work Phone: Eosinophils/100 WBC (Bld) 2.4 % 0-5 [facility] Work Phone: Neutrophils (Bld) [#/Vol] 4.4 10*3/uL 2.0-7.7 [facility] Work Phone: Neutrophils/100 WBC (Bld) 64.8 % 47-70 [facility] Work Phone: WBC (Bld) [#/Vol] 6.7 10*3/uL 4.4-11.0 [facility] Work Phone: Blood erythrocytes count (nu mber/volume)on 05-30-2021 RBC (Bld) [#/Vol] 4.54 10*6/uL 4.6-6.2 [facility] Work Phone: Blood hemoglobin measurement (mass/volume)on 05-30-2021 Hemoglobin (Bld) [Mass/Vol] 11.9 g/dL 13.0-16.5 [facility] Work Phone: Blood lymphocytes/100 leukoc yteson 05-30-2021 Lymphocytes/100 WBC (Bld) 23.4 % 19-41 [facility] Work Phone: [phone] Blood monocytes/100 leukocyt eson 05-30-2021 Monocytes/100 WBC (Bld) 8.6 % 0-10 [facility] Work Phone: Blood platelet mean volumeon 05-30-2021 Platelet mean volume (Bld) [Entitic vol] 10.7 fL 6.2-12.0 [facility] Work Phone: Determination of erythrocyte mean corpuscular volume (MCV)on 05-30-2021 MCV (RBC) [Entitic vol] 81.3 fL 80-94 [facility] Work Phone: [phone] Hematocrit Auto (Bld) [Volum e fraction]on 05-30-2021 Hematocrit (Bld) [Volume fraction] 36.9 % 40-54 [facility] Work Phone: Laboratory - Hematology and Cell countson 05-30-2021 Erythrocyte distribution width (RBC) [Entitic vol] 46.5 fL 35.1-43.9 [facility] Work Phone: [phone] Erythrocyte distribution width (RBC) [Ratio] 15.6 % 11.6-14.6 [facility] Work Phone: Immature granulocytes/100 WBC (Bld) 0.100 % 0.0-0.9 [facility] Work Phone: Comment on above: IG% - Immature Granu locytes (promyelocytes, myelocytes and metamyelocytes) > 1% indicates that a LEFT SHIFT is Present. MCH (RBC) [Entitic mass] 26.2 pg 27.0-32.0 [facility] Work Phone: Nucleated RBC/100 WBC (Bld) [Ratio] 0 % 0-5 [facility] Work Phone: MCHC Auto (RBC) [Mass/Vol]on 05-30-2021 MCHC (RBC) [Mass/Vol] 32.2 g/dL 32-36 [facility] Work Phone: No Panel Informationon 05-30 Thyroid Stimulating Hormone (TSH) 1.24 uIU/mL 0.358-3.74 [facility] Work Phone: Platelets bldon 05-30-2021 Platelets (Bld) [#/Vol] 201 10*3/uL 150-450 [facility] Work Phone: Final Surgical Pathology Rep [facility] 08-11-2018 Final Surgical Pathology Report . Pathology Reports Accession: Collected Date/Time: Received Date/Time: Pathologist: [id number] 08/07/2018 14:48 EDT 08/08/2018 14:48 EDT URBAN [...] cm. TS -1 Dictated by Talita GRIFFITHS ([facility]) MICROSCOPIC DESCRIPTION: A-B Slides reviewed. Electronically Signed by Pathology Report verified by [facility] Electronically signed by URBAN BILLINGS Sign out Date: 08/11/2018 15:23 Performing Lab: [facility], [address] [place] [address] [facility] ([place]) Comment on above: Performed By: #### S PFR #### [facility] [address] [place], [place] [address] Otheron 12-28-2010 CONVERTED CLINICAL HISTORY OPERATIVE PROCEDURE: V arthroscopy, partial medial meniscectomy rt knee CLINICAL INFORMATION: Partial medial meniscal tear rt knee [facility] CONVERTED ELECTRONIC SIGNATURE OCHOA SPENCER M.D., PATHOLOGIST (Electronic signature on file) Final Signed Out: 12/28/2010 13:12 [facility] CONVERTED FINAL DIAGNOSIS FINAL DIAGNOSIS: RIGHT KNEE, INTRAARTICULAR SHAVINGS - FIBROCARTILAGE WITH DEGENERATIVE CHANGES. SPECIMEN: SHAVINGS, KNEE [facility] CONVERTED GROSS DESCRIPTION GROSS DESCRIPTION: Intra-articular shavings rt knee Container labeled shavings right knee. Received in a cloth sock are portions of yellow-white fibrocartilaginous tissue measuring 2 x 2 x 1 cm in aggregate. A help desk representative sample is submitted in a single cassette. SMS/lrs MICROSCOPIC DESCRIPTION: Slides reviewed. EDS/gpl [facility] CONVERTED ORDERING PROVIDER Ordering Provider: KARLOS AQUINO [facility] Vital Signs Date Time Vital Sign Value Performing Clinician Facility 09-24-2024 09:03-0400 Diastolic blood pressure 69 mm[Hg] Dick Nguyen MD Work Phone: [facility] 09-24-2024 09:03-0400 Systolic blood pressure 100 mm[Hg] Dick Nguyen MD Work Phone: [facility] 09-24-2024 08:55-0400 Body temperature 96.8 [degF] Dick Nguyen MD Work Phone: [facility] 09-24-2024 08:55-0400 Heart rate 57 /min Dick Nguyen MD Work Phone: [facility] 09-24-2024 08:55-0400 Respiratory rate 29 /min Dick Nguyen MD Work Phone: [facility] 09-24-2024 08:55-0400 SaO2% (BldA) [Mass fraction] 96 % Dick Nguyen MD Work Phone: [facility] 09-24-2024 06:54-0400 Body height 175.3 cm Dick Nguyen MD Work Phone: [facility] 09-24-2024 06:54-0400 Body mass index (BMI) [Ratio] 47.85 kg/m2 Dick Nguyen MD Work Phone: [facility] 09-24-2024 06:54-0400 Body weight 146.97 kg Dick Nguyen MD Work Phone: [facility] 09-16-2024 10:01-0400 Body height 175.[address] Radha Khan MD Work Phone: [facility] 09-16-2024 10:01-0400 Body mass index (BMI) [Ratio] 48.1 kg/m2 Dr. Radha Khan MD Work Phone: [facility] 09-16-2024 10:01-0400 Body weight 147.[address] Radha Khan MD Work Phone: [facility] 09-16-2024 10:01-0400 Diastolic blood pressure 70 mm[Hg] Dr. Radha Khan MD Work Phone: [facility] 09-16-2024 10:01-0400 Heart rate 72 /min Dr. Radha Khan MD Work Phone: [facility] 09-16-2024 10:01-0400 SaO2% (BldA) [Mass fraction] 96 % Dr. Radha Khan MD Work Phone: [facility] 09-16-2024 10:01-0400 Systolic blood pressure 109 mm[Hg] Dr. Radha Khan MD Work Phone: [facility] 09-15-2024 12:59-0400 Body height 175.[address] Radha Khan MD Work Phone: [facility] 09-15-2024 12:59-0400 Body mass index (BMI) [Ratio] 47.8 kg/m2 Dr. Radha Khan MD Work Phone: [facility] 09-15-2024 12:59-0400 Body temperature 98.2 [degF] Dr. Radha Khan MD Work Phone: [facility] 09-15-2024 12:59-0400 Body weight 146.[address] Radha Khan MD Work Phone: [facility] 09-15-2024 12:59-0400 Diastolic blood pressure 59 mm[Hg] Dr. Radha Khan MD Work Phone: [facility] 09-15-2024 12:59-0400 Heart rate 82 /min Dr. Radah Khan MD Work Phone: [facility] 09-15-2024 12:59-0400 Inhaled oxygen flow rate 4 L/min Dr. Radha Khan MD Work Phone: [facility] 09-15-2024 12:59-0400 Respiratory rate 17 /min Dr. Radha Khan MD Work Phone: [facility] 09-15-2024 12:59-0400 SaO2% (BldA) [Mass fraction] 94 % Dr. Radha Khan MD Work Phone: [facility] 09-15-2024 12:59-0400 Systolic blood pressure 104 mm[Hg] Dr. Radha Khan MD Work Phone: [facility] 08-28-2024 11:58-0400 Body temperature 97.9 [degF] Rosalino Padron MD Work Phone: [facility] 08-28-2024 11:58-0400 Body weight 143.79 kg Rosalino Padron MD Work Phone: [facility] 08-28-2024 11:58-0400 Diastolic blood pressure 70 mm[Hg] Rosalino Padron MD Work Phone: [facility] 08-28-2024 11:58-0400 Heart rate 76 /min Rosalino Padron MD Work Phone: [facility] 08-28-2024 11:58-0400 SaO2% (BldA) [Mass fraction] 95 % Rosalino Padron MD Work Phone: [facility] Comment on above: 4L O2 08-28-2024 11:58-0400 Systolic blood pressure 125 mm[Hg] Rosalino Padron MD Work Phone: [facility] 08-17-2024 11:25-0400 Body height 175.[address] Radha Khan MD Work Phone: [facility] 08-17-2024 11:25-0400 Body mass index (BMI) [Ratio] 46 kg/m2 Dr. Radha Khan MD Work Phone: [facility] 08-17-2024 11:25-0400 Body temperature 98.2 [degF] Dr. Radha Khan MD Work Phone: [facility] 08-17-2024 11:25-0400 Body weight 141.[address] Radha Khan MD Work Phone: [facility] 08-17-2024 11:25-0400 Diastolic blood pressure 70 mm[Hg] Dr. Radha Khan MD Work Phone: [facility] 08-17-2024 11:25-0400 Heart rate 74 /min Dr. Radha Khan MD Work Phone: [facility] 08-17-2024 11:25-0400 Inhaled oxygen flow rate 4 L/min Dr. Radha Khan MD Work Phone: [facility] 08-17-2024 11:25-0400 Respiratory rate 16 /min Dr. Radha Khan MD Work Phone: [facility] 08-17-2024 11:25-0400 SaO2% (BldA) [Mass fraction] 96 % Dr. Radha Khan MD Work Phone: [facility] 08-17-2024 11:25-0400 Systolic blood pressure 119 mm[Hg] Dr. Radha Khan MD Work Phone: [facility] 08-07-2024 14:09-0400 Body temperature 98.01 [degF] Rosalino Padron MD Work Phone: [facility] 08-07-2024 14:09-0400 Body weight 141.98 kg Rosalino Padron MD Work Phone: [facility] 08-07-2024 14:09-0400 Diastolic blood pressure 58 mm[Hg] Rosalino Padron MD Work Phone: [facility] 08-07-2024 14:09-0400 Heart rate 81 /min Rosalino Padron MD Work Phone: [facility] 08-07-2024 14:09-0400 SaO2% (BldA) [Mass fraction] 98 % Rosalino Padron MD Work Phone: [facility] 08-07-2024 14:09-0400 Systolic blood pressure 92 mm[Hg] Rosalino Padron MD Work Phone: [facility] 08-06-2024 14:41-0400 Body temperature 98.2 [degF] Dr. Radha Khan MD Work Phone: [facility] 08-06-2024 14:41-0400 Body weight 142.[address] Radha Khan MD Work Phone: [facility] 08-06-2024 14:41-0400 Diastolic blood pressure 69 mm[Hg] Dr. Radha Khan MD Work Phone: [facility] 08-06-2024 14:41-0400 Heart rate 80 /min Dr. Radha Khan MD Work Phone: [facility] 08-06-2024 14:41-0400 Inhaled oxygen flow rate 8 L/min Dr. Radha Khan MD Work Phone: [facility] 08-06-2024 14:41-0400 Respiratory rate 17 /min Dr. Radha Khan MD Work Phone: [facility] 08-06-2024 14:41-0400 SaO2% (BldA) [Mass fraction] 94 % Dr. Radha Khan MD Work Phone: 1(622)481-877743 [place] [address] 08-06-2024 14:41-0400 Systolic blood pressure 99 mm[Hg] Dr. Radha Khan MD Work Phone: 8(341)494-084461 [place] [address] 07-06-2024 13:44-0400 Body temperature 98.2 [degF] Dr. Radha Khan MD Work Phone: 5(805)603-860261 [place] [address] 07-06-2024 13:44-0400 Body weight 139.[address] Radha Khan MD Work Phone: 0(664)537-388080 [address] 07-06-2024 13:44-0400 Diastolic blood pressure 68 mm[Hg] Dr. Radha Khan MD Work Phone: 2(912)173-683980 [address] 07-06-2024 13:44-0400 Heart rate 91 /min Dr. Radha Khan MD Work Phone: 0(275)040-515643 [place] [address] 07-06-2024 13:44-0400 Inhaled oxygen flow rate 4 L/min Dr. Radha Khan MD Work Phone: 9(270)016-420443 [place] [address] 07-06-2024 13:44-0400 Respiratory rate 17 /min Dr. Radha Khan MD Work Phone: 2(415)427-642643 [place] [address] 07-06-2024 13:44-0400 SaO2% (BldA) [Mass fraction] 97 % Dr. Radha Khan MD Work Phone: 3(291)319-612743 [place] [address] 07-06-2024 13:44-0400 Systolic blood pressure 110 mm[Hg] Dr. Radha Khan MD Work Phone: 6(460)530-665580 [address] 06-26-2024 11:10-0400 Body temperature 97.59 [degF] Rosalino Padron MD Work Phone: [facility] 06-26-2024 11:10-0400 Body weight 141.07 kg Rosalino Padron MD Work Phone: [facility] 06-26-2024 11:10-0400 Diastolic blood pressure 78 mm[Hg] Rosalino Padron MD Work Phone: [facility] 06-26-2024 11:10-0400 Heart rate 76 /min Rosalino Padron MD Work Phone: [facility] 06-26-2024 11:10-0400 SaO2% (BldA) [Mass fraction] 98 % Rosalino Padron MD Work Phone: [facility] Comment on above: pt on 4L O2 06-26-2024 11:10-0400 Systolic blood pressure 157 mm[Hg] Rosalino Padron MD Work Phone: [facility] 06-10-2024 08:19-0400 Body mass index (BMI) [Ratio] 45.3 kg/m2 Dr. Radha Khan MD Work Phone: [facility] 06-10-2024 08:19-0400 Body temperature 97.2 [degF] Dr. Radha Khan MD Work Phone: [facility] 06-10-2024 08:19-0400 Body weight 139.[address] Radha Khan MD Work Phone: [facility] 06-10-2024 08:19-0400 Diastolic blood pressure 76 mm[Hg] Dr. Radha Khan MD Work Phone: [facility] 06-10-2024 08:19-0400 Heart rate 59 /min Dr. Radha Khan MD Work Phone: [facility] 06-10-2024 08:19-0400 Inhaled oxygen flow rate 4 L/min Dr. Radha Khan MD Work Phone: [facility] 06-10-2024 08:19-0400 Respiratory rate 20 /min Dr. Radha Khan MD Work Phone: [facility] 06-10-2024 08:19-0400 SaO2% (BldA) [Mass fraction] 99 % Dr. Radha Khan MD Work Phone: [facility] 06-10-2024 08:19-0400 Systolic blood pressure 115 mm[Hg] Dr. Radha Khan MD Work Phone: [facility] 06-04-2024 13:50-0500 Body height 175.[address] Radha Khan MD Work Phone: 9(412)256-706343 [place] [address] 06-04-2024 13:50-0500 Body mass index (BMI) [Ratio] 45.1 kg/m2 Dr. Radha Khan MD Work Phone: [facility] 06-04-2024 13:50-0500 Body temperature 97.8 [degF] Dr. Radha Khan MD Work Phone: [facility] 06-04-2024 13:50-0500 Body weight 138.[address] Radha Khan MD Work Phone: [facility] 06-04-2024 13:50-0500 Diastolic blood pressure 61 mm[Hg] Dr. Radha Khan MD Work Phone: [facility] 06-04-2024 13:50-0500 Heart rate 59 /min Dr. Radha Khan MD Work Phone: [facility] 06-04-2024 13:50-0500 Inhaled oxygen flow rate 4 L/min Dr. Radha Khan MD Work Phone: [facility] 06-04-2024 13:50-0500 Respiratory rate 17 /min Dr. Radha Khan MD Work Phone: [facility] 06-04-2024 13:50-0500 SaO2% (BldA) [Mass fraction] 92 % Dr. Radha Khan MD Work Phone: [facility] 06-04-2024 13:50-0500 Systolic blood pressure 141 mm[Hg] Dr. Radha Khan MD Work Phone: [facility] 05-21-2024 10:44-0500 Body mass index (BMI) [Ratio] 43.7 kg/m2 Dr. Radha Khan MD Work Phone: [facility] 05-21-2024 10:44-0500 Body weight 134.[address] Radha Khan MD Work Phone: [facility] 05-21-2024 10:44-0500 Diastolic blood pressure 69 mm[Hg] Dr. Radha Khan MD Work Phone: [facility] 05-21-2024 10:44-0500 Heart rate 75 /min Dr. Radha Khan MD Work Phone: [facility] 05-21-2024 10:44-0500 Inhaled oxygen flow rate 4 L/min Dr. Radha Khan MD Work Phone: [facility] 05-21-2024 10:44-0500 Respiratory rate 18 /min Dr. Radha Khan MD Work Phone: [facility] 05-21-2024 10:44-0500 SaO2% (BldA) [Mass fraction] 100 % Dr. Radha Khan MD Work Phone: [facility] 05-21-2024 10:44-0500 Systolic blood pressure 105 mm[Hg] Dr. Radha Khan MD Work Phone: [facility] 05-06-2024 08:35-0500 Body temperature 96.69 [degF] Mey Loya [employer]ICAL [employer]IST [employer] Work Phone: [facility] 05-06-2024 08:35-0500 Diastolic blood pressure 63 mm[Hg] Mey Loya [employer]ICAL E[employer]OMIST [employer] Work Phone: [facility] 05-06-2024 08:35-0500 Heart rate 72 /min Mey Loya [employer]ICAL E[employer]OMIST [employer] Work Phone: [facility] 05-06-2024 08:35-0500 Respiratory rate 20 /min Mey Loya [employer]OLOGICAL E[employer]OMIST [employer] Work Phone: [facility] 05-06-2024 08:35-0500 SaO2% (BldA) [Mass fraction] 95 % Mey Loya ECOLOGICAL E[employer]OMIST [employer] Work Phone: [facility] 05-06-2024 08:35-0500 Systolic blood pressure 112 mm[Hg] Mey Loya ECOLOGICAL E[employer]OMIST [employer] Work Phone: [facility] 05-05-2024 13:14-0500 Body temperature 98 [degF] Dr. Radha Khan MD Work Phone: [facility] 05-05-2024 13:14-0500 Diastolic blood pressure 63 mm[Hg] Dr. Radha Khan MD Work Phone: [facility] 05-05-2024 13:14-0500 Heart rate 66 /min Dr. Radha Khan MD Work Phone: [facility] 05-05-2024 13:14-0500 Respiratory rate 18 /min Dr. Radha Khan MD Work Phone: [facility] 05-05-2024 13:14-0500 SaO2% (BldA) [Mass fraction] 100 % Dr. Radha Khan MD Work Phone: [facility] 05-05-2024 13:14-0500 Systolic blood pressure 101 mm[Hg] Dr. Radha Khan MD Work Phone: [facility] 05-01-2024 12:31-0500 Body mass index (BMI) [Ratio] 44.4 kg/m2 Dr. Radha Khan MD Work Phone: [facility] 05-01-2024 12:31-0500 Body temperature 98.3 [degF] Dr. Radha Khan MD Work Phone: [facility] 05-01-2024 12:31-0500 Body weight 136.[address] Radha Khan MD Work Phone: 4(214)228-909861 [place] [address] 05-01-2024 12:31-0500 Diastolic blood pressure 60 mm[Hg] Dr. Radha Khan MD Work Phone: 7(945)565-098643 [place] [address] 05-01-2024 12:31-0500 Heart rate 70 /min Dr. Radha Khan MD Work Phone: 2(886)860-017461 [place] [address] 05-01-2024 12:31-0500 Inhaled oxygen flow rate 4 L/min Dr. Radha Khan MD Work Phone: 9(694)829-563261 [place] [address] 05-01-2024 12:31-0500 Respiratory rate 18 /min Dr. Radha Khan MD Work Phone: 9(999)072-917661 [place] [address] 05-01-2024 12:31-0500 SaO2% (BldA) [Mass fraction] 100 % Dr. Radha Khan MD Work Phone: 7(954)246-719243 [place] [address] 05-01-2024 12:31-0500 Systolic blood pressure 97 mm[Hg] Dr. Radha Khan MD Work Phone: 9(474)405-345661 [place] [address] 04-30-2024 14:32-0500 Body temperature 97.4 [degF] Dr. Radha Khan MD Work Phone: 2(534)775-894561 [place] [address] 04-30-2024 14:32-0500 Body weight 138.[address] Radha Khan MD Work Phone: 5(840)190-341643 [place] [address] 04-30-2024 14:32-0500 Diastolic blood pressure 58 mm[Hg] Dr. Radha Khan MD Work Phone: 1(893)497-234861 [place] [address] 04-30-2024 14:32-0500 Heart rate 73 /min Dr. Radha Khan MD Work Phone: 8(586)170-883080 [address] 04-30-2024 14:32-0500 Inhaled oxygen flow rate 4 L/min Dr. Radha Khan MD Work Phone: 5(476)857-649880 [address] 04-30-2024 14:32-0500 Respiratory rate 18 /min Dr. Radha Khan MD Work Phone: 7(382)077-173461 [place] [address] 04-30-2024 14:32-0500 SaO2% (BldA) [Mass fraction] 94 % Dr. Radha Khan MD Work Phone: 8(274)166-902561 [place] [address] 04-30-2024 14:32-0500 Systolic blood pressure 111 mm[Hg] Dr. Radha Khan MD Work Phone: 5(332)347-052561 [place] [address] 04-30-2024 13:26-0500 Body mass index (BMI) [Ratio] 44.7 kg/m2 Dr. Radha Khan MD Work Phone: 7(002)616-700261 [place] [address] 04-30-2024 13:26-0500 Body weight 137.[address] Radha Khan MD Work Phone: 4(198)600-560361 [place] [address] 04-30-2024 13:26-0500 Diastolic blood pressure 55 mm[Hg] Dr. Radha Khan MD Work Phone: 9(601)959-654561 [place] [address] 04-30-2024 13:26-0500 Heart rate 69 /min Dr. Radha Khan MD Work Phone: 4(730)979-402861 [place] [address] 04-30-2024 13:26-0500 Respiratory rate 18 /min Dr. Radha Khan MD Work Phone: 7(888)795-376661 [place] [address] 04-30-2024 13:26-0500 Systolic blood pressure 97 mm[Hg] Dr. Radha Khan MD Work Phone: 3(544)875-102761 [place] [address] 04-30-2024 11:30-0500 Body mass index (BMI) [Ratio] 44.7 kg/m2 Dr. Rdaha Khan MD Work Phone: 1(159)085-903461 [place] [address] 04-30-2024 11:30-0500 Body temperature 98.2 [degF] Dr. Radha Khan MD Work Phone: 5(460)657-401761 [place] [address] 04-30-2024 11:30-0500 Body weight 137.[address] Radha Khan MD Work Phone: [facility] 04-30-2024 11:30-0500 Diastolic blood pressure 74 mm[Hg] Dr. Radha Khan MD Work Phone: [facility] 04-30-2024 11:30-0500 Heart rate 80 /min Dr. Radha Khan MD Work Phone: [facility] 04-30-2024 11:30-0500 Inhaled oxygen flow rate 4 L/min Dr. Radha Khan MD Work Phone: [facility] 04-30-2024 11:30-0500 Respiratory rate 17 /min Dr. Radha Khan MD Work Phone: [facility] 04-30-2024 11:30-0500 SaO2% (BldA) [Mass fraction] 95 % Dr. Radha Khan MD Work Phone: [facility] 04-30-2024 11:30-0500 Systolic blood pressure 120 mm[Hg] Dr. Radha Khan MD Work Phone: [facility] 04-27-2024 14:43-0500 Body height 175.3 cm Suzy Jauregui MD Work Phone: [facility] 04-27-2024 14:43-0500 Body mass index (BMI) [Ratio] 46.07 kg/m2 Suzy Jauregui MD Work Phone: [facility] 04-27-2024 14:43-0500 Body weight 141.52 kg Suzy Jauregui MD Work Phone: [facility] 04-27-2024 14:43-0500 Diastolic blood pressure 60 mm[Hg] Suzy Jauregui MD Work Phone: [facility] 04-27-2024 14:43-0500 Heart rate 75 /min Suzy Jauregui MD Work Phone: [facility] 04-27-2024 14:43-0500 Respiratory rate 18 /min Suzy Jauregui MD Work Phone: [facility] 04-27-2024 14:43-0500 SaO2% (BldA) [Mass fraction] 95 % Suzy Jauregui MD Work Phone: [facility] 04-27-2024 14:43-0500 Systolic blood pressure 122 mm[Hg] Suzy Jauregui MD Work Phone: [facility] 04-25-2024 16:19-0500 Body mass index (BMI) [Ratio] 44.6 kg/m2 Dr. Radha Khan MD Work Phone: [facility] 04-25-2024 14:00-0500 Body temperature 98.5 [degF] Dr. Radha Khan MD Work Phone: [facility] 04-25-2024 14:00-0500 Diastolic blood pressure 54 mm[Hg] Dr. Radha Khan MD Work Phone: [facility] 04-25-2024 14:00-0500 Heart rate 93 /min Dr. Radha Khan MD Work Phone: [facility] 04-25-2024 14:00-0500 Inhaled oxygen flow rate 3.5 L/min Dr. Radha Khan MD Work Phone: [facility] 04-25-2024 14:00-0500 Respiratory rate 16 /min Dr. Radha Khan MD Work Phone: [facility] 04-25-2024 14:00-0500 SaO2% (BldA) [Mass fraction] 100 % Dr. Radha Khan MD Work Phone: [facility] 04-25-2024 14:00-0500 Systolic blood pressure 113 mm[Hg] Dr. Radha Khan MD Work Phone: [facility] 04-25-2024 09:20-0500 Body weight 137.[address] Radha Khan MD Work Phone: [facility] 04-22-2024 09:35-0500 Body mass index (BMI) [Ratio] 45.6 kg/m2 Dr. Radha Khan MD Work Phone: [facility] 04-22-2024 09:35-0500 Body temperature 97.3 [degF] Dr. Radha Khan MD Work Phone: [facility] 04-22-2024 09:35-0500 Body weight 140.[address] Radha Khan MD Work Phone: 6(542)653-091480 [address] 04-22-2024 09:35-0500 Diastolic blood pressure 76 mm[Hg] Dr. Radha hKan MD Work Phone: 2(798)269-647343 [place] [address] 04-22-2024 09:35-0500 Heart rate 67 /min Dr. Radha Khan MD Work Phone: 7(953)143-043961 [place] [address] 04-22-2024 09:35-0500 Inhaled oxygen flow rate 4 L/min Dr. Radha Khan MD Work Phone: 3(508)943-907761 [place] [address] 04-22-2024 09:35-0500 Respiratory rate 20 /min Dr. Radha Khan MD Work Phone: [facility] 04-22-2024 09:35-0500 SaO2% (BldA) [Mass fraction] 99 % Dr. Radha Khan MD Work Phone: 5(125)019-325680 [address] 04-22-2024 09:35-0500 Systolic blood pressure 143 mm[Hg] Dr. Radha Khan MD Work Phone: 2(495)248-320443 [place] [address] 04-16-2024 09:22-0500 Body mass index (BMI) [Ratio] 44.9 kg/m2 Dr. Radha Khan MD Work Phone: [facility] 04-16-2024 09:22-0500 Body weight 138.[address] Radha Khan MD Work Phone: 0(505)485-798080 [address] 04-16-2024 09:22-0500 Diastolic blood pressure 56 mm[Hg] Dr. Radha Khan MD Work Phone: 3(075)659-627543 [place] [address] 04-16-2024 09:22-0500 Heart rate 79 /min Dr. Radha Khan MD Work Phone: [facility] 04-16-2024 09:22-0500 Inhaled oxygen flow rate 4 L/min Dr. Radha Khan MD Work Phone: 9(097)657-887943 [place] [address] 04-16-2024 09:22-0500 SaO2% (BldA) [Mass fraction] 78 % Dr. Radha Khan MD Work Phone: 1(427)317-819361 [place] [address] 04-16-2024 09:22-0500 Systolic blood pressure 105 mm[Hg] Dr. Radha Khan MD Work Phone: 0(838)412-499061 [place] [address] 04-15-2024 16:08-0500 Inhaled oxygen flow rate 4 L/min Dr. Radha hKan MD Work Phone: 0(955)341-468561 [place] [address] 04-15-2024 14:26-0500 Body temperature 97.9 [degF] Dr. Radha Khan MD Work Phone: 9(142)800-648961 [place] [address] 04-15-2024 14:26-0500 Diastolic blood pressure 66 mm[Hg] Dr. Radha Khan MD Work Phone: 5(817)510-131161 [place] [address] 04-15-2024 14:26-0500 Heart rate 79 /min Dr. Radha Khan MD Work Phone: 5(841)922-272961 [place] [address] 04-15-2024 14:26-0500 Respiratory rate 16 /min Dr. Radha Khan MD Work Phone: 2(855)623-402161 [place] [address] 04-15-2024 14:26-0500 SaO2% (BldA) [Mass fraction] 94 % Dr. Radha Khan MD Work Phone: 3(540)946-998761 [place] [address] 04-15-2024 14:26-0500 Systolic blood pressure 102 mm[Hg] Dr. Radha Khan MD Work Phone: 6(294)777-231061 [place] [address] 04-15-2024 03:24-0500 Body mass index (BMI) [Ratio] 44.5 kg/m2 Dr. Radha Khan MD Work Phone: 5(130)089-149161 [place] [address] 04-15-2024 03:24-0500 Body weight 136.[address] Radha Khan MD Work Phone: [facility] 04-13-2024 20:00-0500 Inhaled oxygen concentration 91 % Dr. Radha Khan MD Work Phone: [facility] 01-06-2024 10:49-0400 Body height 175.3 cm Oziel Culp MD Work Phone: [facility] [email or web address] 01-06-2024 10:49-0400 Body mass index (BMI) [Ratio] 46.07 kg/m2 Oziel Culp MD Work Phone: [facility] [email or web address] 01-06-2024 10:49-0400 Body weight 141.52 kg Oziel Culp MD Work Phone: [facility] [email or web address] 01-06-2024 10:49-0400 Diastolic blood pressure 72 mm[Hg] Oziel Culp MD Work Phone: [facility] [email or web address] 01-06-2024 10:49-0400 Heart rate 72 /min Oziel Culp MD Work Phone: [facility] [email or web address] 01-06-2024 10:49-0400 Systolic blood pressure 110 mm[Hg] Oziel Culp MD Work Phone: [facility] [email or web address] 10-05-2023 13:16-0400 Body temperature 97.39 [degF] Joe Rocha MD Work Phone: [facility] [email or web address] 10-05-2023 13:16-0400 Diastolic blood pressure 70 mm[Hg] Joe Rocha MD Work Phone: [facility] [email or web address] 10-05-2023 13:16-0400 Heart rate 83 /min Joe Rocha MD Work Phone: [facility] [email or web address] 10-05-2023 13:16-0400 Respiratory rate 20 /min Joe Rocha MD Work Phone: [facility] [email or web address] 10-05-2023 13:16-0400 SaO2% (BldA) [Mass fraction] 95 % Joe Rocha MD Work Phone: [facility] 10-05-2023 13:16-0400 Systolic blood pressure 107 mm[Hg] Joe Rocha MD Work Phone: [facility] 10-03-2023 15:30-0400 Body temperature 98.06 [degF] CHITO MEDLEY-GABRIELA [employer] [facility] 10-03-2023 15:30-0400 Diastolic Blood Pressure Non-Invasive 73 mm[Hg] CHITO MEDLEY-GABRIELA [employer] [facility] 10-03-2023 15:30-0400 Heart rate 82 /min CHITO MEDLEY-GABRIELA [employer] [facility] 10-03-2023 15:30-0400 Reason For Taking VItal Signs CHITO GALINDOFedericoGABRIELA [employer]OLOGICAL E[employer]OMIST[employer] [facility] 10-03-2023 15:30-0400 Respiratory rate 18 /min CHITO MEDLEY-GABRIELA [employer] [facility] 10-03-2023 15:30-0400 Systolic Blood Pressure Non-Invasive 109 mm[Hg] CHITO MEDLEY-GABRIELA [employer] [facility] 10-03-2023 13:12-0400 Reason For Taking VItal Signs CHITO BAIGYFedericoGABRIELA [employer]OLOGICAL E[employer]OMIST[employer] [facility] 10-03-2023 11:39-0400 Body temperature 98.24 [degF] CHITO JAY-GABRIELA [employer] [facility] 10-03-2023 11:39-0400 Diastolic Blood Pressure Non-Invasive 66 mm[Hg] CHITO GALINDO-GABRIELA [employer] [facility] 10-03-2023 11:39-0400 Heart rate 80 /min CHITO AMBROSEGABRIELA [employer]ICAL [employer] [facility] 10-03-2023 11:39-0400 Reason For Taking VItal Signs CHITO FREEDMANLEY [employer] [facility] 10-03-2023 11:39-0400 Respiratory rate 18 /min CHITO AMBROSEGABRIELA [employer] [facility] 10-03-2023 11:39-0400 Systolic Blood Pressure Non-Invasive 112 mm[Hg] CHITO BAIGY-GABRIELA [employer] [facility] 10-03-2023 08:27-0400 Heart rate 79 /min CHITO GALINDO-GABRIELA [employer] [facility] 10-03-2023 06:05-0400 Body temperature 97.88 [degF] CHITO MEDLEY-GABRIELA [employer] [facility] 10-03-2023 06:05-0400 Diastolic Blood Pressure Non-Invasive 76 mm[Hg] CHITO GALINDOFedericoGABRIELA [employer]ICAL [employer] [facility] 10-03-2023 06:05-0400 Heart rate 71 /min CHITO CHITRA [employer] [facility] 10-03-2023 06:05-0400 Respiratory rate 18 /min CHITO MEDLEY-GABRIELA [employer] [facility] 10-03-2023 06:05-0400 Systolic Blood Pressure Non-Invasive 112 mm[Hg] CHITO GALINDO-GABRIELA [employer] [facility] 10-02-2023 08:45-0400 Heart rate 76 /min CHITO MEDLEYFedericoGABRIELA [employer]ICAL E[employer]IST[employer] [facility] 10-02-2023 03:49-0400 Heart rate 85 /min CHITO MEDLEY-GABRIELA [employer] [facility] 10-02-2023 01:23-0400 Body height 175.3 cm CHITO BAIGYJDGABRIELA [employer]OLOGICAL E[employer]IST[employer] [facility] 10-02-2023 01:23-0400 Body weight 144.7 kg CHITO BUENROSTRO [employer]IST[employer] [facility] 10-02-2023 01:23-0400 Body weight 47.09 kg/m2 CHITO MEDLEY-GABRIELA [employer] [facility] 10-02-2023 01:17-0400 Heart rate 71 /min CHITO BUENROSTRO [employer] [facility] 10-02-2023 00:30-0400 Heart rate 82 /min CHITO BUENROSTRO [employer] [facility] 07-17-2023 15:35-0400 Body temperature 98.2 [degF] Dr. Radha Khan Work Phone: [facility] 07-17-2023 15:35-0400 Body weight 146.[address] Radha Khan Work Phone: [facility] 07-17-2023 15:35-0400 Diastolic blood pressure 67 mm[Hg] Dr. Radha Khan Work Phone: [facility] 07-17-2023 15:35-0400 Heart rate 80 /min Dr. Radha Khan Work Phone: [facility] 07-17-2023 15:35-0400 Respiratory rate 16 /min Dr. Radha Khan Work Phone: [facility] 07-17-2023 15:35-0400 SaO2% (BldA) [Mass fraction] 95 % Dr. Radha Khan Work Phone: [facility] 07-17-2023 15:35-0400 Systolic blood pressure 121 mm[Hg] Dr. Radha Khan Work Phone: [facility] 07-03-2023 11:02-0400 Body height 175.[address] Radha Khan Work Phone: [facility] 07-03-2023 11:02-0400 Body mass index (BMI) [Ratio] 48.1 kg/m2 Dr. Radha Khan Work Phone: [facility] 07-03-2023 11:02-0400 Body weight 147.[address] Radha Khan Work Phone: 7(812)828-284243 [place] [address] 07-03-2023 11:02-0400 Respiratory rate 16 /min Dr. Radha Khan Work Phone: [facility] 05-21-2023 14:43-0500 Body height 175.[address] Radha Khan Work Phone: [facility] 05-21-2023 14:43-0500 Body mass index (BMI) [Ratio] 48.1 kg/m2 Dr. Radha Khan Work Phone: [facility] 05-21-2023 14:43-0500 Body temperature 97.6 [degF] Dr. Radha Khan Work Phone: [facility] 05-21-2023 14:43-0500 Body weight 147.[address] Radha Khan Work Phone: [facility] 05-21-2023 14:43-0500 Diastolic blood pressure 81 mm[Hg] Dr. Radha Khan Work Phone: [facility] 05-21-2023 14:43-0500 Heart rate 83 /min Dr. Radha Khan Work Phone: [facility] 05-21-2023 14:43-0500 Respiratory rate 18 /min Dr. Radha Khan Work Phone: [facility] 05-21-2023 14:43-0500 SaO2% (BldA) [Mass fraction] 97 % Dr. Radha Khan Work Phone: [facility] 05-21-2023 14:43-0500 Systolic blood pressure 121 mm[Hg] Dr. Radha Khan Work Phone: [facility] 05-20-2023 13:21-0500 Body mass index (BMI) [Ratio] 48.3 kg/m2 Dr. Radha Khan Work Phone: [facility] 05-20-2023 13:21-0500 Body temperature 98.6 [degF] Dr. Radha Khan Work Phone: [facility] 05-20-2023 13:21-0500 Body weight 148.[address] Radha Khan Work Phone: [facility] 05-20-2023 13:21-0500 Diastolic blood pressure 68 mm[Hg] Dr. Radha Khan Work Phone: [facility] 05-20-2023 13:21-0500 Heart rate 76 /min Dr. Radha Khan Work Phone: [facility] 05-20-2023 13:21-0500 Respiratory rate 16 /min Dr. Radha Khan Work Phone: [facility] 05-20-2023 13:21-0500 SaO2% (BldA) [Mass fraction] 98 % Dr. Radha Khan Work Phone: [facility] 05-20-2023 13:21-0500 Systolic blood pressure 102 mm[Hg] Dr. Radha Khan Work Phone: [facility] 03-12-2023 12:03-0500 Diastolic blood pressure 72 mm[Hg] Dr. Radha Khan Work Phone: [facility] 03-12-2023 12:03-0500 Heart rate 101 /min Dr. Radha Khan Work Phone: [facility] 03-12-2023 12:03-0500 Systolic blood pressure 96 mm[Hg] Dr. Radha Khan Work Phone: [facility] 03-12-2023 08:59-0500 Body height 175.[address] Radha Khan Work Phone: [facility] 03-12-2023 08:59-0500 Body mass index (BMI) [Ratio] 47.1 kg/m2 Dr. Radha Khan Work Phone: [facility] 03-12-2023 08:59-0500 Body temperature 97.7 [degF] Dr. Radha Khan Work Phone: [facility] 03-12-2023 08:59-0500 Body weight 144.[address] Radha Khan Work Phone: [facility] 03-12-2023 08:59-0500 Respiratory rate 17 /min Dr. Radha Khan Work Phone: [facility] 03-12-2023 08:59-0500 SaO2% (BldA) [Mass fraction] 97 % Dr. Radha Khan Work Phone: [facility] 02-27-2023 10:43-0500 Body height 175.[address] Radha Khan Work Phone: [facility] 02-27-2023 10:43-0500 Body mass index (BMI) [Ratio] 46.9 kg/m2 Dr. Radha Khan Work Phone: [facility] 02-27-2023 10:43-0500 Body weight 144.[address] Radha Khan Work Phone: [facility] 02-27-2023 10:43-0500 Diastolic blood pressure 71 mm[Hg] Dr. Radha Khan Work Phone: [facility] 02-27-2023 10:43-0500 Heart rate 73 /min Dr. Radha Khan Work Phone: [facility] 02-27-2023 10:43-0500 Respiratory rate 20 /min Dr. Radha Khan Work Phone: [facility] 02-27-2023 10:43-0500 SaO2% (BldA) [Mass fraction] 100 % Dr. Radha Khan Work Phone: [facility] 02-27-2023 10:43-0500 Systolic blood pressure 103 mm[Hg] Dr. Radha Khan Work Phone: [facility] 02-18-2023 11:05-0500 Body temperature 97.8 [degF] Dr. Radha Khan Work Phone: [facility] 02-18-2023 11:05-0500 Diastolic blood pressure 63 mm[Hg] Dr. Radha Khan Work Phone: [facility] 02-18-2023 11:05-0500 Heart rate 69 /min Dr. Radha Khan Work Phone: [facility] 02-18-2023 11:05-0500 Respiratory rate 16 /min Dr. Radha Khan Work Phone: [facility] 02-18-2023 11:05-0500 SaO2% (BldA) [Mass fraction] 96 % Dr. Radha Khan Work Phone: [facility] 02-18-2023 11:05-0500 Systolic blood pressure 132 mm[Hg] Dr. Radha Khan Work Phone: [facility] 02-18-2023 09:54-0500 Body height 175.[address] Radha Khan Work Phone: [facility] 02-18-2023 09:54-0500 Body mass index (BMI) [Ratio] 47.5 kg/m2 Dr. Radha Khan Work Phone: [facility] 02-18-2023 09:54-0500 Body weight [address] Radha Khan Work Phone: [facility] 02-04-2023 13:15-0500 Body mass index (BMI) [Ratio] 48.2 kg/m2 Dr. Radha Khan Work Phone: 8(882)674-685743 [place] [address] 02-04-2023 13:15-0500 Body temperature 98 [degF] Dr. Radha Khan Work Phone: 6(581)969-620343 [place] [address] 02-04-2023 13:15-0500 Body weight 148.[address] Radha Khan Work Phone: 4(242)618-962380 [address] 02-04-2023 13:15-0500 Diastolic blood pressure 62 mm[Hg] Dr. Radha Khan Work Phone: 8(378)320-811243 [place] [address] 02-04-2023 13:15-0500 Heart rate 80 /min Dr. Radha Khan Work Phone: 6(334)547-943943 [place] [address] 02-04-2023 13:15-0500 Respiratory rate 18 /min Dr. Radha Khan Work Phone: 7(567)500-327180 [address] 02-04-2023 13:15-0500 SaO2% (BldA) [Mass fraction] 98 % Dr. Radha Khan Work Phone: 9(301)225-393643 [place] [address] 02-04-2023 13:15-0500 Systolic blood pressure 100 mm[Hg] Dr. Radha Khan Work Phone: [facility] 01-01-2023 14:110400 Body height 175.[address] Radha Khan Work Phone: 6(501)300-441543 [place] [address] 01-01-2023 14:11-0400 Body mass index (BMI) [Ratio] 47.8 kg/m2 Dr. Radha Khan Work Phone: 8(204)258-129743 [place] [address] 01-01-2023 14:11-0400 Body temperature 97.3 [degF] Dr. Radha Khan Work Phone: 7(407)979-656943 [place] [address] 01-01-2023 14:11-0400 Body weight 146.[address] Radha Khan Work Phone: [facility] 01-01-2023 14:11-0400 Diastolic blood pressure 67 mm[Hg] Dr. Radha Khan Work Phone: 3(984)007-157443 [place] [address] 01-01-2023 14:11-0400 Heart rate 75 /min Dr. Rdaha Khan Work Phone: 9(546)668-833843 [place] [address] 01-01-2023 14:11-0400 Respiratory rate 17 /min Dr. Radha Khan Work Phone: 7(657)047-842180 [address] 01-01-2023 14:11-0400 SaO2% (BldA) [Mass fraction] 98 % Dr. Radha Khan Work Phone: 9(012)276-915243 [place] [address] 01-01-2023 14:11-0400 Systolic blood pressure 106 mm[Hg] Dr. Radha Khan Work Phone: 2(316)220-275480 [address] 12-10-2022 11:33-0400 Body mass index (BMI) [Ratio] 47.8 kg/m2 Dr. Radha Khan Work Phone: 6(308)002-908843 [place] [address] 12-10-2022 11:33-0400 Body temperature 98.3 [degF] Dr. Radha Khan Work Phone: 0(432)752-564843 [place] [address] 12-10-2022 11:33-0400 Body weight 146.[address] Radha Khan Work Phone: [facility] 12-10-2022 11:33-0400 Diastolic blood pressure 70 mm[Hg] Dr. Radha Khan Work Phone: 7(432)999-019343 [place] [address] 12-10-2022 11:33-0400 Heart rate 72 /min Dr. Radha Khan Work Phone: 1(207)360-186343 [place] [address] 12-10-2022 11:33-0400 Respiratory rate 16 /min Dr. Radha Khan Work Phone: [facility] 12-10-2022 11:33-0400 SaO2% (BldA) [Mass fraction] 96 % Dr. Radha Khan Work Phone: [facility] 12-10-2022 11:33-0400 Systolic blood pressure 118 mm[Hg] Dr. Radha Khan Work Phone: [facility] 10-08-2022 14:22-0400 Diastolic blood pressure 72 mm[Hg] Dr. Radha Khan Work Phone: [facility] 10-08-2022 14:22-0400 Systolic blood pressure 107 mm[Hg] Dr. Radha Khan Work Phone: [facility] 09-03-2022 13:57-0400 Body height 175.[address] Radha Khan Work Phone: [facility] 09-03-2022 13:57-0400 Body mass index (BMI) [Ratio] 47 kg/m2 Dr. Radha Khan Work Phone: [facility] 09-03-2022 13:57-0400 Body temperature 98.6 [degF] Dr. Radha Khan Work Phone: [facility] 09-03-2022 13:57-0400 Body weight 144.[address] Radha Khan Work Phone: [facility] 09-03-2022 13:57-0400 Diastolic blood pressure 56 mm[Hg] Dr. Radha Khan Work Phone: [facility] 09-03-2022 13:57-0400 Heart rate 62 /min Dr. Radha Khan Work Phone: [facility] 09-03-2022 13:57-0400 Respiratory rate 16 /min Dr. Radha Khan Work Phone: [facility] 09-03-2022 13:57-0400 SaO2% (BldA) [Mass fraction] 94 % Dr. Radha Khan Work Phone: [facility] 09-03-2022 13:57-0400 Systolic blood pressure 90 mm[Hg] Dr. Radha Khan Work Phone: [facility] 08-03-2022 15:30-0400 Body mass index (BMI) [Ratio] 45.4 kg/m2 Dr. Radha Khan Work Phone: [facility] 08-03-2022 15:20-0400 Body temperature 97.9 [degF] Dr. Radha Khan Work Phone: [facility] 08-03-2022 15:20-0400 Diastolic blood pressure 78 mm[Hg] Dr. Radha Khan Work Phone: [facility] 08-03-2022 15:20-0400 Heart rate 107 /min Dr. Radha Khan Work Phone: [facility] 08-03-2022 15:20-0400 Respiratory rate 16 /min Dr. Radha Khan Work Phone: [facility] 08-03-2022 15:20-0400 SaO2% (BldA) [Mass fraction] 97 % Dr. Radha Khan Work Phone: [facility] 08-03-2022 15:20-0400 Systolic blood pressure 144 mm[Hg] Dr. Radha Khan Work Phone: [facility] 08-03-2022 05:22-0400 Body mass index (BMI) [Ratio] 45.4 kg/m2 Dr. Radha Khan Work Phone: [facility] 08-03-2022 05:22-0400 Body weight 139.[address] Radha Khan Work Phone: [facility] 08-02-2022 10:53-0400 Body height 175.[address] Radha Khan Work Phone: [facility] 06-18-2022 14:14-0400 Body height 175.[address] Radha Khan Work Phone: [facility] 06-18-2022 14:14-0400 Body mass index (BMI) [Ratio] 45.8 kg/m2 Dr. Radha Khan Work Phone: [facility] 06-18-2022 14:14-0400 Body temperature 96.7 [degF] Dr. Radha Khan Work Phone: [facility] 06-18-2022 14:14-0400 Body weight 140.[address] Radha Khan Work Phone: [facility] 06-18-2022 14:14-0400 Diastolic blood pressure 70 mm[Hg] Dr. Radha Khan Work Phone: [facility] 06-18-2022 14:14-0400 Heart rate 81 /min Dr. Radha Khan Work Phone: [facility] 06-18-2022 14:14-0400 Respiratory rate 18 /min Dr. Radha Khan Work Phone: [facility] 06-18-2022 14:14-0400 SaO2% (BldA) [Mass fraction] 98 % Dr. Radha Khan Work Phone: [facility] 06-18-2022 14:14-0400 Systolic blood pressure 110 mm[Hg] Dr. Radha Khan Work Phone: [facility] 06-12-2022 07:50-0400 Body mass index (BMI) [Ratio] 45.8 kg/m2 Dr. Radha Khan Work Phone: [facility] 06-12-2022 07:50-0400 Body temperature 97.3 [degF] Dr. Radha Khan Work Phone: [facility] 06-12-2022 07:50-0400 Body weight 140.[address] Radha Khan Work Phone: [facility] 06-12-2022 07:50-0400 Diastolic blood pressure 72 mm[Hg] Dr. Radha Khan Work Phone: [facility] 06-12-2022 07:50-0400 Heart rate 83 /min Dr. Radha Khan Work Phone: [facility] 06-12-2022 07:50-0400 Respiratory rate 18 /min Dr. Radha Khan Work Phone: [facility] 06-12-2022 07:50-0400 SaO2% (BldA) [Mass fraction] 97 % Dr. Radha Khan Work Phone: [facility] 06-12-2022 07:50-0400 Systolic blood pressure 115 mm[Hg] Dr. Radha Khan Work Phone: 0(092)244-873480 [address] 05-21-2022 15:09-0500 Diastolic blood pressure 80 mm[Hg] Dr. Radha Khan Work Phone: 0(646)231-378061 [place] [address] 05-21-2022 15:09-0500 Systolic blood pressure 130 mm[Hg] Dr. Radha Khan Work Phone: 7(945)520-963480 [address] 05-21-2022 15:09-0500 Body mass index (BMI) [Ratio] 45.6 kg/m2 Dr. Radha Khan Work Phone: 2(233)395-390080 [address] 05-21-2022 15:09-0500 Body weight 140.[address] Radha Khan Work Phone: 8(594)833-890643 [place] [address] 05-21-2022 15:09-0500 Heart rate 80 /min Dr. Radha Khan Work Phone: 1(244)073-182943 [place] [address] 05-21-2022 15:09-0500 Respiratory rate 18 /min Dr. Radha Khan Work Phone: [facility] 05-21-2022 15:09-0500 SaO2% (BldA) [Mass fraction] 94 % Dr. Radha Khan Work Phone: [facility] 05-09-2022 08:42-0500 Body height 175.[address] Radha Khan Work Phone: 5(365)673-164743 [place] [address] 05-09-2022 08:42-0500 Body weight 136.[address] Radha Khan Work Phone: [facility] 05-08-2022 08:18-0500 Body mass index (BMI) [Ratio] 44.6 kg/m2 Dr. Radha Khan Work Phone: [facility] 05-03-2022 08:34-0500 Body mass index (BMI) [Ratio] 44.6 kg/m2 Dr. Radha Khan Work Phone: 5(321)784-828343 [place] [address] 05-03-2022 08:34-0500 Body weight 136.[address] Radha Khan Work Phone: 4(569)663-772280 [address] 05-03-2022 08:34-0500 Diastolic blood pressure 84 mm[Hg] Dr. aRdha Khan Work Phone: 2(496)648-843980 [address] 05-03-2022 08:34-0500 Heart rate 92 /min Dr. Radha Khan Work Phone: 5(241)035-050480 [address] 05-03-2022 08:34-0500 Respiratory rate 20 /min Dr. Radha Khan Work Phone: 8(673)291-010180 [address] 05-03-2022 08:34-0500 SaO2% (BldA) [Mass fraction] 95 % Dr. Radha Khan Work Phone: 9(951)522-253743 [place] [address] 05-03-2022 08:34-0500 Systolic blood pressure 143 mm[Hg] Dr. Radha Khan Work Phone: 1(915)572-453543 [place] [address] 03-12-2022 10:43-0500 Body height 175.[address] Radha Khan Work Phone: 1(758)175-600943 [place] [address] 03-12-2022 10:43-0500 Body mass index (BMI) [Ratio] 45.6 kg/m2 Dr. Radha Khan Work Phone: [facility] 03-12-2022 10:43-0500 Body temperature 97.2 [degF] Dr. Radha Khan Work Phone: 6(765)849-920243 [place] [address] 03-12-2022 10:43-0500 Body weight 140.[address] Radha Khan Work Phone: [facility] 03-12-2022 10:43-0500 Diastolic blood pressure 59 mm[Hg] Dr. Radha Khan Work Phone: [facility] 03-12-2022 10:43-0500 Heart rate 78 /min Dr. Radha Khan Work Phone: [facility] 03-12-2022 10:43-0500 Respiratory rate 18 /min Dr. Radha Khan Work Phone: [facility] 03-12-2022 10:43-0500 SaO2% (BldA) [Mass fraction] 92 % Dr. Radha Khan Work Phone: [facility] 03-12-2022 10:43-0500 Systolic blood pressure 92 mm[Hg] Dr. Radha Khan Work Phone: [facility] 02-19-2022 08:31-0500 Body height 175.[address] Radha Khan Work Phone: [facility] Work Phone: 02-19-2022 08:31-0500 Body mass index (BMI) [Ratio] 45.8 kg/m2 Dr. Radha Khan Work Phone: [facility] 02-19-2022 08:31-0500 Body weight 140.[address] Radha Khan Work Phone: [facility] 02-19-2022 08:31-0500 Diastolic blood pressure 64 mm[Hg] Dr. Radha Khan Work Phone: [facility] 02-19-2022 08:31-0500 Heart rate 68 /min Dr. Radha Khan Work Phone: [facility] 02-19-2022 08:31-0500 Respiratory rate 18 /min Dr. Radha Khan Work Phone: [facility] 02-19-2022 08:31-0500 Systolic blood pressure 125 mm[Hg] Dr. Radha Khan Work Phone: [facility] 02-16-2022 12:47-0500 Body weight 136.[address] Radha Khan Work Phone: [facility] 02-16-2022 12:47-0500 Heart rate 77 /min Dr. Radha Khan Work Phone: [facility] 02-16-2022 12:47-0500 Inhaled oxygen flow rate 2 L/min Dr. Radha Khan Work Phone: [facility] 02-16-2022 12:47-0500 SaO2% (BldA) [Mass fraction] 98 % Dr. Radha Khan Work Phone: [facility] 02-12-2022 08:54-0500 Body mass index (BMI) [Ratio] 44.6 kg/m2 Dr. Radha Khan Work Phone: [facility] 02-12-2022 08:54-0500 Body temperature 98.2 [degF] Dr. Radha Khan Work Phone: [facility] 02-12-2022 08:54-0500 Body weight 137.[address] Radha Khan Work Phone: [facility] 02-12-2022 08:54-0500 Diastolic blood pressure 78 mm[Hg] Dr. Radha Khan Work Phone: [facility] 02-12-2022 08:54-0500 Heart rate 69 /min Dr. Radha Khan Work Phone: [facility] 02-12-2022 08:54-0500 Respiratory rate 18 /min Dr. Radha Khan Work Phone: [facility] 02-12-2022 08:54-0500 SaO2% (BldA) [Mass fraction] 98 % Dr. Radha Khan Work Phone: [facility] 02-12-2022 08:54-0500 Systolic blood pressure 122 mm[Hg] Dr. Radha Khan Work Phone: [facility] 01-15-2022 10:51-0400 Body mass index (BMI) [Ratio] 45.5 kg/m2 Dr. Radha Khan Work Phone: [facility] 01-15-2022 10:51-0400 Body temperature 97 [degF] Dr. Radha Khan Work Phone: [facility] 01-15-2022 10:51-0400 Body weight 139.[address] Radha Khan Work Phone: [facility] 01-15-2022 10:51-0400 Diastolic blood pressure 76 mm[Hg] Dr. Radha Khan Work Phone: [facility] 01-15-2022 10:51-0400 Heart rate 76 /min Dr. Radha Khan Work Phone: [facility] 01-15-2022 10:51-0400 Respiratory rate 18 /min Dr. Radha Khan Work Phone: [facility] 01-15-2022 10:51-0400 SaO2% (BldA) [Mass fraction] 93 % Dr. Radha Khan Work Phone: [facility] 01-15-2022 10:51-0400 Systolic blood pressure 124 mm[Hg] Dr. Radha Khan Work Phone: [facility] 11-13-2021 15:28-0400 Body mass index (BMI) [Ratio] 44.6 kg/m2 Dr. Radha Khan Work Phone: [facility] Work Phone: 11-13-2021 15:28-0400 Body weight 136.[address] Radha Khan Work Phone: [facility] Work Phone: 11-13-2021 15:28-0400 Diastolic blood pressure 64 mm[Hg] Dr. Radha Khan Work Phone: [facility] Work Phone: 11-13-2021 15:28-0400 Heart rate 79 /min Dr. Radha Khan Work Phone: [facility] Work Phone: 11-13-2021 15:28-0400 Respiratory rate 18 /min Dr. Radha Khan Work Phone: [facility] Work Phone: 11-13-2021 15:28-0400 Systolic blood pressure 110 mm[Hg] Dr. Radha Khan Work Phone: [facility] Work Phone: 09-07-2021 14:21-0400 Body height 175.[address] Radha Khan Work Phone: [facility] Work Phone: 09-07-2021 14:21-0400 Body mass index (BMI) [Ratio] 45 kg/m2 Dr. Radha Khan Work Phone: [facility] Work Phone: 09-07-2021 14:21-0400 Body weight 138.[address] Radha Khan Work Phone: [facility] Work Phone: 09-07-2021 14:21-0400 Diastolic blood pressure 79 mm[Hg] Dr. Radha Khan Work Phone: [facility] Work Phone: 09-07-2021 14:21-0400 Heart rate 79 /min Dr. Radha Khan Work Phone: [facility] Work Phone: 09-07-2021 14:21-0400 Respiratory rate 18 /min Dr. Radha Khan Work Phone: [facility] Work Phone: 09-07-2021 14:21-0400 SaO2% (BldA) [Mass fraction] 96 % Dr. Radha Khan Work Phone: [facility] Work Phone: 09-07-2021 14:21-0400 Systolic blood pressure 153 mm[Hg] Dr. Radha Khan Work Phone: [facility] Work Phone: 09-04-2021 10:10-0400 Diastolic blood pressure 82 mm[Hg] Dr. Radha Khan Work Phone: [facility] Work Phone: 09-04-2021 10:10-0400 Systolic blood pressure 172 mm[Hg] Dr. Radha Khan Work Phone: [facility] Work Phone: 09-04-2021 09:10-0400 Heart rate 78 /min Dr. Radha Khan Work Phone: [facility] Work Phone: 09-04-2021 09:10-0400 SaO2% (BldA) [Mass fraction] 95 % Dr. Radha Khan Work Phone: [facility] Work Phone: 09-04-2021 08:44-0400 Respiratory rate 16 /min Dr. Radha Khan Work Phone: [facility] Work Phone: 09-04-2021 06:22-0400 Body height 175.[address] Radha Khan Work Phone: [facility] Work Phone: 09-04-2021 06:22-0400 Body mass index (BMI) [Ratio] 45.1 kg/m2 Dr. Radha Khan Work Phone: [facility] Work Phone: 09-04-2021 06:22-0400 Body temperature 97.4 [degF] Dr. Radha Khan Work Phone: [facility] Work Phone: 09-04-2021 06:22-0400 Body weight 138.[address] Radha Khan Work Phone: [facility] Work Phone: 08-10-2021 13:42-0400 Body mass index (BMI) [Ratio] 44.5 kg/m2 Dr. Radha Khan Work Phone: [facility] Work Phone: 08-10-2021 13:42-0400 Body temperature 95.7 [degF] Dr. Radha Khan Work Phone: [facility] Work Phone: 08-10-2021 13:42-0400 Body weight 136.[address] Radha Khan Work Phone: [facility] Work Phone: 08-10-2021 13:42-0400 Diastolic blood pressure 80 mm[Hg] Dr. Radha Khan Work Phone: [facility] Work Phone: 08-10-2021 13:42-0400 Heart rate 84 /min Dr. Radha Khan Work Phone: [facility] Work Phone: 08-10-2021 13:42-0400 Respiratory rate 18 /min Dr. Radha Khan Work Phone: [facility] Work Phone: 08-10-2021 13:42-0400 SaO2% (BldA) [Mass fraction] 96 % Dr. Radha Khan Work Phone: [facility] Work Phone: 08-10-2021 13:42-0400 Systolic blood pressure 140 mm[Hg] Dr. Radha Khan Work Phone: [facility] Work Phone: 08-10-2021 13:42-0400 Body height 175.[address] Radha Khan Work Phone: [facility] Work Phone: 08-10-2021 13:42-0400 Body mass index (BMI) [Ratio] 44.5 kg/m2 Dr. Radha Khan Work Phone: [facility] Work Phone: 08-10-2021 13:42-0400 Body temperature 95.7 [degF] Dr. Radha Khan Work Phone: [facility] Work Phone: 08-10-2021 13:42-0400 Body weight 136.[address] Radha Khan Work Phone: [facility] Work Phone: 08-10-2021 13:42-0400 Diastolic blood pressure 80 mm[Hg] Dr. Radha Khan Work Phone: [facility] Work Phone: 08-10-2021 13:42-0400 Heart rate 84 /min Dr. Radha Khan Work Phone: [facility] Work Phone: 08-10-2021 13:42-0400 Respiratory rate 18 /min Dr. Radha Khan Work Phone: [facility] Work Phone: 08-10-2021 13:42-0400 SaO2% (BldA) [Mass fraction] 96 % Dr. Radha Khan Work Phone: [facility] Work Phone: 08-10-2021 13:42-0400 Systolic blood pressure 140 mm[Hg] Dr. Radha Khan Work Phone: [facility] Work Phone: 07-16-2021 16:25-0400 Body temperature 98.7 [degF] Dr. Radha Khan Work Phone: [facility] Work Phone: 07-16-2021 16:25-0400 Diastolic blood pressure 75 mm[Hg] Dr. Radha Khan Work Phone: [facility] Work Phone: 07-16-2021 16:25-0400 Heart rate 73 /min Dr. Radha Khan Work Phone: [facility] Work Phone: 07-16-2021 16:25-0400 Respiratory rate 18 /min Dr. Radha Khan Work Phone: [facility] Work Phone: 07-16-2021 16:25-0400 SaO2% (BldA) [Mass fraction] 99 % Dr. Radha Khan Work Phone: [facility] Work Phone: 07-16-2021 16:25-0400 Systolic blood pressure 155 mm[Hg] Dr. Radha Khan Work Phone: [facility] Work Phone: 07-16-2021 14:17-0400 Body height 175.[address] Radha Khan Work Phone: [facility] Work Phone: 07-16-2021 14:17-0400 Body mass index (BMI) [Ratio] 44.9 kg/m2 Dr. Radha Khan Work Phone: [facility] Work Phone: 07-16-2021 14:17-0400 Body weight [address] Radha Khan Work Phone: [facility] Work Phone: 07-13-2021 10:31-0400 Body mass index (BMI) [Ratio] 44.4 kg/m2 Dr. Radha Khan Work Phone: [facility] Work Phone: 07-13-2021 10:31-0400 Body temperature 98.2 [degF] Dr. Radha Khan Work Phone: [facility] Work Phone: 07-13-2021 10:31-0400 Body weight 136.[address] Radha Khan Work Phone: [facility] Work Phone: 07-13-2021 10:31-0400 Diastolic blood pressure 72 mm[Hg] Dr. Radha Khan Work Phone: [facility] Work Phone: 07-13-2021 10:31-0400 Heart rate 73 /min Dr. Radha Khan Work Phone: [facility] Work Phone: 07-13-2021 10:31-0400 Respiratory rate 17 /min Dr. Radha Khan Work Phone: [facility] Work Phone: 07-13-2021 10:31-0400 SaO2% (BldA) [Mass fraction] 99 % Dr. Radha Khan Work Phone: [facility] Work Phone: 07-13-2021 10:31-0400 Systolic blood pressure 115 mm[Hg] Dr. Radha Khan Work Phone: [facility] Work Phone: 07-13-2021 10:31-0400 Body mass index (BMI) [Ratio] 44.4 kg/m2 Dr. Radha Khan Work Phone: [facility] Work Phone: 07-13-2021 10:31-0400 Body temperature 98.2 [degF] Dr. Radha Khan Work Phone: [facility] Work Phone: 07-13-2021 10:31-0400 Body weight 136.[address] Radha Khan Work Phone: [facility] Work Phone: 07-13-2021 10:31-0400 Diastolic blood pressure 72 mm[Hg] Dr. Radha Khan Work Phone: [facility] Work Phone: 07-13-2021 10:31-0400 Heart rate 73 /min Dr. Radha Khan Work Phone: [facility] Work Phone: 07-13-2021 10:31-0400 Respiratory rate 17 /min Dr. Radha Khan Work Phone: [facility] Work Phone: 07-13-2021 10:31-0400 SaO2% (BldA) [Mass fraction] 99 % Dr. Radha Khan Work Phone: [facility] Work Phone: 07-13-2021 10:31-0400 Systolic blood pressure 115 mm[Hg] Dr. Radha Khan Work Phone: [facility] Work Phone: 07-12-2021 12:50-0400 Body weight 136.[address] Radha Khan Work Phone: [facility] Work Phone: 07-12-2021 12:50-0400 Diastolic blood pressure 83 mm[Hg] Dr. Radha Khan Work Phone: [facility] Work Phone: 07-12-2021 12:50-0400 Heart rate 72 /min Dr. Radha Khan Work Phone: [facility] Work Phone: 07-12-2021 12:50-0400 Respiratory rate 18 /min Dr. Radha Khan Work Phone: [facility] Work Phone: 07-12-2021 12:50-0400 SaO2% (BldA) [Mass fraction] 100 % Dr. Radha Khan Work Phone: [facility] Work Phone: 07-12-2021 12:50-0400 Systolic blood pressure 148 mm[Hg] Dr. Radha Khan Work Phone: [facility] Work Phone: 07-12-2021 12:50-0400 Body weight 136.[address] Radha Khan Work Phone: [facility] Work Phone: 07-12-2021 12:50-0400 Diastolic blood pressure 83 mm[Hg] Dr. Radha Khan Work Phone: [facility] Work Phone: 07-12-2021 12:50-0400 Heart rate 72 /min Dr. Radha Khan Work Phone: [facility] Work Phone: 07-12-2021 12:50-0400 Respiratory rate 18 /min Dr. Radha Khan Work Phone: [facility] Work Phone: 07-12-2021 12:50-0400 SaO2% (BldA) [Mass fraction] 100 % Dr. Radha Khan Work Phone: [facility] Work Phone: 07-12-2021 12:50-0400 Systolic blood pressure 148 mm[Hg] Dr. Radha Khan Work Phone: [facility] Work Phone: 06-29-2021 13:09-0400 Body mass index (BMI) [Ratio] 43.6 kg/m2 Dr. Radha Khan Work Phone: [facility] Work Phone: 06-29-2021 13:09-0400 Body temperature 96.9 [degF] Dr. Radha Khan Work Phone: [facility] Work Phone: 06-29-2021 13:09-0400 Body weight 133.[address] Radha Khan Work Phone: [facility] Work Phone: 06-29-2021 13:09-0400 Diastolic blood pressure 76 mm[Hg] Dr. Radha Khan Work Phone: [facility] Work Phone: 06-29-2021 13:09-0400 Heart rate 98 /min Dr. Radha Khan Work Phone: [facility] Work Phone: 06-29-2021 13:09-0400 Respiratory rate 18 /min Dr. Radha Khan Work Phone: [facility] Work Phone: 06-29-2021 13:09-0400 SaO2% (BldA) [Mass fraction] 98 % Dr. Radha Khan Work Phone: [facility] Work Phone: 06-29-2021 13:09-0400 Systolic blood pressure 110 mm[Hg] Dr. Radha Khan Work Phone: [facility] Work Phone: 06-29-2021 13:09-0400 Body mass index (BMI) [Ratio] 43.6 kg/m2 Dr. Radha Khan Work Phone: [facility] Work Phone: 06-29-2021 13:09-0400 Body temperature 96.9 [degF] Dr. Radha Khan Work Phone: [facility] Work Phone: 06-29-2021 13:09-0400 Body weight 133.[address] Radha Khan Work Phone: [facility] Work Phone: 06-29-2021 13:09-0400 Diastolic blood pressure 76 mm[Hg] Dr. Radha hKan Work Phone: [facility] Work Phone: 06-29-2021 13:09-0400 Heart rate 98 /min Dr. Radha Khan Work Phone: [facility] Work Phone: 06-29-2021 13:09-0400 Respiratory rate 18 /min Dr. Radha Khan Work Phone: [facility] Work Phone: 06-29-2021 13:09-0400 SaO2% (BldA) [Mass fraction] 98 % Dr. Radha Khan Work Phone: [facility] Work Phone: 06-29-2021 13:09-0400 Systolic blood pressure 110 mm[Hg] Dr. Radha Khan Work Phone: [facility] Work Phone: 06-20-2021 12:08-0400 Heart rate 90 /min Dr. Radha Khan Work Phone: [facility] Work Phone: 06-20-2021 10:32-0400 SaO2% (BldA) [Mass fraction] 95 % Dr. Radha Khan Work Phone: [facility] Work Phone: 06-20-2021 09:00-0400 Body temperature 97.8 [degF] Dr. Radha Khan Work Phone: [facility] Work Phone: 06-20-2021 09:00-0400 Diastolic blood pressure 82 mm[Hg] Dr. Radha Khan Work Phone: [facility] Work Phone: 06-20-2021 09:00-0400 Respiratory rate 18 /min Dr. Radha Khan Work Phone: [facility] Work Phone: 06-20-2021 09:00-0400 Systolic blood pressure 154 mm[Hg] Dr. Radha Khan Work Phone: [facility] Work Phone: 06-20-2021 06:00-0400 Body weight [address] Radha Khan Work Phone: [facility] Work Phone: 06-19-2021 10:46-0400 Body mass index (BMI) [Ratio] 44.3 kg/m2 Dr. Radha Khan Work Phone: [facility] Work Phone: 06-15-2021 14:08-0400 Body weight 139.[address] Radha Khan Work Phone: [facility] Work Phone: 06-15-2021 14:08-0400 Heart rate 84 /min Dr. Radha Khan Work Phone: [facility] Work Phone: 06-15-2021 14:08-0400 SaO2% (BldA) [Mass fraction] 97 % Dr. Radha Khan Work Phone: [facility] Work Phone: 06-01-2021 13:31-0500 Body mass index (BMI) [Ratio] 43.9 kg/m2 Dr. Radha Khan Work Phone: [facility] Work Phone: 06-01-2021 13:31-0500 Body temperature 96.9 [degF] Dr. Radha Khan Work Phone: [facility] Work Phone: 06-01-2021 13:31-0500 Body weight 134.[address] Radha Khan Work Phone: [facility] Work Phone: 06-01-2021 13:31-0500 Diastolic blood pressure 70 mm[Hg] Dr. Radha Khan Work Phone: [facility] Work Phone: 06-01-2021 13:31-0500 Heart rate 78 /min Dr. Radha Khan Work Phone: [facility] Work Phone: 06-01-2021 13:31-0500 Respiratory rate 18 /min Dr. Radha Khan Work Phone: [facility] Work Phone: 06-01-2021 13:31-0500 SaO2% (BldA) [Mass fraction] 100 % Dr. Radha Khan Work Phone: [facility] Work Phone: 06-01-2021 13:31-0500 Systolic blood pressure 110 mm[Hg] Dr. Radha Khan Work Phone: [facility] Work Phone: 06-01-2021 12:31-0500 Body mass index (BMI) [Ratio] 43.9 kg/m2 Dr. Radha Khan Work Phone: [facility] Work Phone: 06-01-2021 12:31-0500 Body temperature 96.9 [degF] Dr. Radha Khan Work Phone: [facility] Work Phone: 06-01-2021 12:31-0500 Body weight 134.[address] Radha Khan Work Phone: [facility] Work Phone: 06-01-2021 12:31-0500 Diastolic blood pressure 70 mm[Hg] Dr. Radha Khan Work Phone: [facility] Work Phone: 06-01-2021 12:31-0500 Heart rate 78 /min Dr. Radha Khan Work Phone: [facility] Work Phone: 06-01-2021 12:31-0500 Respiratory rate 18 /min Dr. Radha Khan Work Phone: [facility] Work Phone: 06-01-2021 12:31-0500 SaO2% (BldA) [Mass fraction] 100 % Dr. Radha Khan Work Phone: [facility] Work Phone: 06-01-2021 12:31-0500 Systolic blood pressure 110 mm[Hg] Dr. Radha Khan Work Phone: [facility] Work Phone: 10-13-2020 15:48-0400 Body mass index (BMI) [Ratio] 45.2 kg/m2 Dr. Radha Khan Work Phone: [facility] Work Phone: 10-13-2020 15:48-0400 Body mass index (BMI) [Ratio] 45.2 kg/m2 Dr. Radha Kahn Work Phone: [facility] Work Phone: Encounters Encounter Date Encounter Type Care Provider Facility Start: 09-24-2024 End: 09-24-2024 Subsequent hospital visit by physician [facility] Comment on above: Arrived Start: 09-24-2024 End: 09-24-2024 ambulatory [facility] Start: 09-24-2024 End: 09-24-2024 Subsequent hospital visit by physician Dick Nguyen MD Work Phone: [facility] Comment on above: ILD (interstitial lavonne ng disease) (Multi) Start: 09-24-2024 End: 09-24-2024 ambulatory [facility] Start: 09-16-2024 End: 09-16-2024 Patient encounter procedure Coreen SHELDON -[facility] Work Phone: Start: 09-16-2024 End: 09-16-[address] Radha Khan MD Work Phone: [facility] Work Phone: Start: 09-15-2024 End: 09-15-[address] Toni Vann MD -[facility] Work Phone: Start: 09-15-2024 End: 09-15-[address] Radha Khan MD Work Phone: [facility] Work Phone: Start: 08-28-2024 End: 08-28-2024 Office outpatient visit 40 minutes Rosalino Padron MD Work Phone: [facility] Comment on above: ILD (interstitial lavonne ng disease) (Multi) (Primary Dx); Chronic respiratory failure with hypoxia; KIANNA (obstructive sleep apnea); BMI 40.0-44.9, adult (Multi); Diastolic heart failure, unspecified HF chronicity Start: 08-28-2024 End: 08-28-2024 ambulatory [facility] Start: 08-18-2024 End: 08-18-2024 Subsequent hospital visit by physician Oni Connor6 [facility]ft R[facility] 2 [facility] Comment on above: ILD (interstitial lavonne ng disease) (Multi) Start: 08-18-2024 End: 08-18-2024 ambulatory [facility] Start: 08-17-2024 End: 08-17-[address] Toni Vann MD -[facility] Work Phone: Start: 08-17-2024 End: 08-17-2024 Dr. Toni Vann MD -[facility] Work Phone: Start: 08-17-2024 End: 08-17-[address] Radha Khan MD Work Phone: [facility] Work Phone: Start: 08-12-2024 End: 08-12-2024 Patient encounter procedure Sumanth Hanna MD -[facility] Work Phone: Start: 08-12-2024 End: 08-12-2024 Sumanth Hanna MD -[facility] Work Phone: Start: 08-12-2024 End: 08-12-[address] Radha Khan MD Work Phone: [facility] Work Phone: Start: 08-12-2024 End: 08-12-2024 ambulatory [facility] Facility:[facility] Start: 08-07-2024 End: 08-07-2024 Office outpatient visit 40 minutes Rosalino Padron MD Work Phone: [facility] Comment on above: ILD (interstitial lavonne ng disease) (Multi) (Primary Dx); Chronic respiratory failure with hypoxia; KIANNA (obstructive sleep apnea); BMI 40.0-44.9, adult (Multi); Diastolic heart failure, unspecified HF chronicity Start: 08-07-2024 End: 08-07-2024 ambulatory [facility] Start: 08-06-2024 End: 08-06-[address] Toni Vann MD -[facility] Work Phone: Start: 08-06-2024 End: 08-06-2024 Dr. Toni Vann MD -[facility] Work Phone: Start: 08-06-2024 End: 08-06-2024 ambulatory Toni Vann [facility] Start: 07-24-2024 End: 07-24-2024 Subsequent hospital visit by physician Clifford kamara [facility] Comment on above: ILD (interstitial lavonne ng disease) (Multi) Start: 07-24-2024 End: 07-24-2024 ambulatory [facility] Start: 07-23-2024 End: 07-23-2024 Subsequent hospital visit by physician Michael Stallings [facility] Comment on above: Pulmonary hypertensi on (Multi) Start: 07-23-2024 End: 07-23-2024 ambulatory [facility] Start: 07-20-2024 End: 04-21-2025 Subsequent hospital visit by physician Lorenza [id number] [facility] Comment on above: ILD (interstitial lavonne ng disease) (Multi) Start: 07-20-2024 End: 07-20-2024 ambulatory [facility] Start: 07-06-2024 End: 07-06-[address] Toni Vann MD -[facility] Work Phone: Start: 07-06-2024 End: 07-06-2024 Dr. Toni Vann MD -[facility] Work Phone: Start: 07-06-2024 End: 07-06-2024 ambulatory Toni Vann Facility:[facility] Start: 06-26-2024 End: 06-26-2024 Office outpatient new 60 minutes Rosalino Padron MD Work Phone: [facility] Comment on above: ILD (interstitial lavonne ng disease) (Multi) (Primary Dx); Pulmonary hypertension (Multi); Chronic respiratory failure with hypoxia (Multi) Start: 06-26-2024 End: 06-26-2024 ambulatory [facility] Start: 06-10-2024 End: 06-10-2024 Patient encounter procedure SAV Ro[facility] Pulmonary Medicine Work Phone: Start: 06-10-2024 End: 06-10-2024 [facility] Work Phone: Start: 06-10-2024 End: 06-10-2024 ambulatory Radha Khan [facility] Start: 06-04-2024 End: 06-04-[address] Toni Vann MD -[facility] Work Phone: Start: 06-04-2024 End: 06-04-2024 Dr. Toni Vann MD -[facility] Work Phone: Start: 06-04-2024 End: 06-04-2024 ambulatory Toni Vann Facility[facility] Start: 06-02-2024 End: 06-02-2024 Patient encounter procedure HR SYSTEMS ANALYST Chen Bob -Sleep Lab Work Phone: Start: 06-02-2024 End: 06-02-2024 HR SYSTEMS ANALYST Chen Bob -Sleep Lab Work Phone: Start: 06-02-2024 End: 06-02-2024 ambulatory Chen Rojas Facility:[facility] Start: 05-28-2024 Non-patient / Non-visit Dr. Jemima MCRAE -[facility] Work Phone: Start: 05-28-2024 ambulatory Lydia GRIFFITHS Facility[place] Start: 05-28-2024 Registered Referred Lydia Segura PA -Cardiovascular Services Work Phone: Start: 05-28-2024 Dr. Sumanth Hanna MD -[facility] Work Phone: Start: 05-21-2024 End: 05-21-2024 Patient encounter procedure Lydia Segura PA -Laboratory Work Phone: Start: 05-21-2024 End: 05-21-2024 Lydia GRIFFITHS -Laboratory Work Phone: Start: 05-21-2024 End: 05-21-2024 Patient encounter procedure Lydia GRIFFITHS -[facility] Work Phone: Start: 05-21-2024 End: 05-21-2024 Lydia GRIFFITHS -[facility] Work Phone: Start: 05-21-2024 End: 05-21-2024 ambulatory Radha Khan Facility[facility] Start: 05-21-2024 End: 05-21-2024 ambulatory Lydia GRIFFITHS Facility:[facility] Start: 05-08-2024 End: 05-08-2024 Telephone encounter Oziel Culp MD Work Phone: [facility] Endovascular Neurology Start: 05-07-2024 End: 05-08-2024 Orders Only Mey Loya ECOLOGICAL ECONOMIST - [employer] Work Phone: [facility] End[facility] Neurology Comment on above: Bilateral carotid ar christine stenosis (Primary Dx) Start: 05-06-2024 End: 05-06-2024 Subsequent hospital visit by physician [facility] Non-Invasive Cardiology Comment on above: Arrived Ischemic cerebrovasc ular accident (CVA) (HCC); Bilateral carotid artery stenosis Start: 05-06-2024 End: 05-06-2024 ambulatory MEY WINJon [facility] Start: 05-05-2024 End: 05-05-2024 Dr. Rito Lundberg MD -[facility] Work Phone: Start: 05-05-2024 End: 05-05-2024 ambulatory Ardha S Jolliff Facility[facility] Start: 05-01-2024 End: 05-01-2024 SAV Rojas -[facility] Work Phone: Start: 05-01-2024 End: 05-01-2024 ambulatory Radha S Jolliff Facility[facility] Start: 04-30-2024 End: 04-30-2024 Dr. Ochoa Dobbs MD -[facility] Work Phone: Start: 04-30-2024 End: 04-30-2024 ambulatory Radha S Jolliff Facility[facility] Start: 04-30-2024 End: 04-30-2024 Dr. Toni Vann MD -[facility] Work Phone: Start: 04-30-2024 End: 04-30-2024 ambulatory Toni Vann Facility[facility] Start: 04-27-2024 End: 04-27-2024 Office outpatient visit 25 minutes Suzy Jauregui MD Work Phone: [facility] - [place] Comment on above: Cerebrovascular acci dent (CVA), unspecified mechanism (HCC) (Primary Dx); Bilateral carotid artery stenosis Start: 04-27-2024 End: 04-27-2024 ambulatory SUZY JAUREGUI [facility] Start: 04-25-2024 Dr. Ochoa Johnson DO - [facility] Work Phone: Start: 04-24-2024 ambulatory Daniel Mcneil Facility: [facility] Start: 04-24-2024 End: 04-25-2024 Evaluation and management of inpatient Ochoa Johnson Facility:[facility] Start: 04-24-2024 End: 04-25-2024 Dr. Ochoa Johnson DO -Progressive Care Un it Work Phone: Start: 04-24-2024 End: 04-24-2024 Dr. Radha Khan MD -Laboratory Maged Harvey Start: 04-24-2024 End: 04-24-2024 ambulatory Radha S Jolliff Facility:[facility] Start: 04-23-2024 End: 04-23-2024 Telephone encounter Coreen Clifton RN [facility] Special Procedur es Start: 04-22-2024 End: 04-22-2024 HR SYSTEMS ANALYST Chen Rojas -[facility] Work Phone: Start: 04-22-2024 End: 04-22-2024 ambulatory Chen Rojas [facility] Start: 04-20-2024 ambulatory Ochoanhung Dobbs [facility] Start: 04-16-2024 End: 04-16-2024 Coreen Gerardo HR SYSTEMS ANALYST-C -[facility] Work Phone: Start: 04-16-2024 End: 04-16-2024 ambulatory Radha S Jolliff Facility:[facility] Start: 04-15-2024 Dr. Cuco Soler MD -[facility] Inpatient Physicians Work Phone: Start: 04-14-2024 ambulatory Radha S Jolliff Facility: [facility] Start: 04-13-2024 ambulatory Radha S Jolliff Facility: [facility] Start: 04-12-2024 ambulatory Radha S Jolliff Facility: [facility] Start: 04-12-2024 End: 04-15-2024 Evaluation and management of inpatient Radha S Jolliff Facility:[facility] Start: 04-12-2024 End: 04-15-2024 Dr. Cuco Soler MD -[facility] Work Phone: Start: 04-09-2024 End: 04-09-2024 ambulatory Radha S Jolliff Facility:[facility] Start: 04-06-2024 End: 04-06-2024 Subsequent hospital visit by physician Suzy Jauregui MD Work Phone: [facility] Comment on above: Bilateral carotid ar christine occlusion Start: 04-06-2024 End: 04-06-2024 ambulatory SUZY JAUREGUI [facility] Start: 03-30-2024 End: 03-30-2024 ambulatory Radha S Jolliff Facility[facility] Start: 03-30-2024 ambulatory Radha S Jolliff [facility]: [facility] Start: 03-30-2024 End: 03-30-2024 ambulatory Radha S Jolliff Facility:[facility] Start: 03-27-2024 ambulatory Radha S Jolliff [facility]: [facility] Start: 03-27-2024 End: 03-27-2024 ambulatory Radha S Jolliff Facility:[facility] Start: 03-23-2024 End: 03-23-2024 ambulatory Radha S Jolliff Facility:[facility] Start: 03-13-2024 End: 03-13-2024 ambulatory Radha S Jolliff Facility[facility] Start: 03-03-2024 ambulatory Tia Boyd Fa cility:[facility] Start: 03-02-2024 ambulatory Xiao Berrios [facility] Start: 03-02-2024 End: 03-04-2024 Evaluation and management of inpatient Xiao Berrios Facility:[facility] Start: 02-26-2024 End: 02-26-2024 Emergency department patient visit Radha S Jolliff Facility:[facility] Start: 02-21-2024 ambulatory Mireya Apontei ty:[facility] Start: 02-20-2024 End: 02-20-2024 ambulatory Toni Thelmanelson Facility[facility] Start: 02-18-2024 End: 02-18-2024 ambulatory Radha S Jolliff Facility[facility] Start: 02-13-2024 End: 02-13-2024 Orders Only Mey Loya ECOLOGICAL ECONOMIST - [employer] Work Phone: [facility] Endovascular Neurology Comment on above: Ischemic cerebrovasc ular accident (CVA) (HCC) (Primary Dx); Bilateral carotid artery stenosis Start: 02-07-2024 End: 02-07-2024 ambulatory Radha S Jolliff [facility] Start: 02-06-2024 End: 03-04-2024 Telephone encounter Oziel Culp MD Work Phone: [facility] Clinical Communication Start: 02-06-2024 End: 02-06-2024 Subsequent hospital visit by physician Oziel Culp MD Work Phone: [facility] [address] Comment on above: Arrived Start: 02-06-2024 End: 02-06-2024 ambulatory [facility] Start: 02-06-2024 End: 02-06-2024 ambulatory Radha S Jolliff Facility:[facility] Start: 02-05-2024 End: 02-05-2024 ambulatory [facility] Start: 02-03-2024 End: 02-03-2024 ambulatory Radha S Jolliff Facility[facility] Start: 01-21-2024 End: 01-22-2024 ambulatory [facility] Start: 01-21-2024 End: 01-22-2024 Evaluation and management of inpatient Eduin Umaña Facility:[facility] Start: 01-20-2024 End: 01-20-2024 ambulatory Toni Vann Facility[facility] Start: 01-16-2024 End: 01-16-2024 Orders Only Mey Caballero CNP Work Phone: [facility] Endovascular Neurology Comment on above: Chronic kidney disea se, unspecified CKD stage (Primary Dx) Start: 01-10-2024 End: 01-10-2024 ambulatory Radha S Jolliff Facility:[facility] Start: 01-06-2024 End: 01-06-2024 Office outpatient visit 25 minutes Oziel Culp MD Work Phone: [facility] Endovascular Neurology Comment on above: Bilateral carotid ar christine stenosis (Primary Dx); Ischemic cerebrovascular accident (CVA) ([facility]) Start: 01-06-2024 End: 01-06-2024 ambulatory [facility] Start: 01-01-2024 ambulatory Oren Sky NP Facility :[facility] Start: 01-01-2024 End: 01-01-2024 ambulatory Oren Jackson Asya HR SYSTEMS ANALYST Facility:[facility] Start: 12-26-2023 End: 12-26-2023 ambulatory Radha S Jolliff Facility[facility] Start: 12-19-2023 End: 12-19-2023 ambulatory Toni Sandersonur [facility] Start: 12-12-2023 End: 12-12-2023 ambulatory Radha S Jolliff Facility[facility] Start: 12-12-2023 End: 12-12-2023 ambulatory Oren H Roof HR SYSTEMS ANALYST Facility:[facility] Start: 12-06-2023 End: 12-06-2023 ambulatory Radha S Jolliff Facility:[facility] Start: 11-27-2023 End: 11-27-2023 ambulatory Radha S Jolliff Facility[facility] Start: 11-18-2023 End: 11-18-2023 ambulatory Toni Vann Facility[facility] Start: 11-16-2023 End: 11-16-2023 Emergency department patient visit Armin Fermin Facility:[facility] Start: 11-14-2023 End: 11-14-2023 ambulatory Bethanyflorentino Shelley Facility:[facility] Start: 11-14-2023 End: 11-14-2023 Evaluation and management of inpatient Edmund Dey Facility:[facility] Start: 11-14-2023 ambulatory Eduin Latif ty:[facility] Start: 11-14-2023 ambulatory Edmund Dey [facility] Start: 11-04-2023 End: 11-04-2023 ambulatory Radha S Jolliff Facility:[facility] Start: 10-30-2023 End: 10-31-2023 ambulatory Radha S Jolliff Facility:[facility] Start: 10-29-2023 End: 10-29-2023 ambulatory Radha S Jolliff Facility:[facility] Start: 10-17-2023 End: 10-17-2023 ambulatory Radha S Jolliff [facility] Start: 10-14-2023 End: 10-14-2023 ambulatory Radha S Jolliff [facility] Start: 10-14-2023 End: 10-14-2023 ambulatory Radha S Jolliff Facility:[facility] Start: 10-08-2023 End: 10-08-2023 ambulatory Bethany [...] and management of inpatient CHITO Savannah BUENROSTRO ECOLOGICAL ECONOMIST-[employer] [facility] Start: 10-01-2023 ambulatory Radha Khan Facility: [facility] Start: 10-01-2023 End: 10-01-2023 ambulatory Radha Khan Facility:[facility] Start: 09-26-2023 End: 09-26-2023 ambulatory Radha Khan Facility:[facility] Start: 09-24-2023 End: 09-24-2023 ambulatory Radha Khan Facility:[facility] Start: 09-19-2023 End: 09-19-2023 ambulatory Radha S Bill Facility:[facility] Start: 08-05-2023 End: 08-05-[address] Radha Khan Work Phone: [facility] Work Phone: Start: 08-05-2023 End: 08-05-[address] Radha Khan Work Phone: [facility]-Laboratory Work Phone: Start: 07-17-2023 End: 07-17-[address] Radha Khan Work Phone: [facility] Vascular Surgery Work Phone: Start: 07-03-2023 End: 07-03-[address] Radha Khan Work Phone: [facility] Associates Work Phone: Start: 06-06-2023 End: 06-06-[address] Radha Khan Work Phone: [facility] Work Phone: Start: 06-06-2023 End: 06-06-[address] Radha Khan Work Phone: [facility] Work Phone: Start: 05-21-2023 End: 05-21-[address] Radha Khan Work Phone: [facility] Surgical Associates Work Phone: Start: 05-20-2023 End: 05-20-[address] Radha Kahn Work Phone: [facility] Endocrinology Work Phone: Start: 05-01-2023 Non-patient / Non-visit Dr. Armen Khan Work Phone: [facility] Start: 05-01-2023 End: 05-01-[address] Radha Khan Work Phone: [facility] Work Phone: Start: 05-01-2023 End: 05-01-[address] Radha Khan Work Phone: [facility]-Cardiovascula r Services Work Phone: Start: 04-25-2023 End: 04-25-[address] Radha Khan Work Phone: [facility] Work Phone: Start: 04-25-2023 End: 04-25-[address] Radha Khan Work Phone: [facility]-Laboratory Work Phone: Start: 04-25-2023 End: 04-25-[address] Radha Khan Work Phone: [facility] Heart Group Work Phone: Start: 03-15-2023 Non-patient / Non-visit Dr. Armen Khan Work Phone: [facility] Start: 03-15-2023 End: 03-15-[address] Radha Khan Work Phone: [facility] Work Phone: Start: 03-15-2023 End: 03-15-[address] Radha Khan Work Phone: [facility]-Ultrasound, [facility] Work Phone: Start: 03-12-2023 End: 03-12-[address] Radha Khan Work Phone: [facility] Neurology Work Phone: Start: 02-28-2023 End: 02-28-[address] Radha Khan Work Phone: [facility] Work Phone: Start: 02-28-2023 End: 02-28-[address] Radha Khan Work Phone: [facility]-Laboratory, Specimen Work Phone: Start: 02-28-2023 End: 02-28-[address] Radha Khan Work Phone: [facility] Surgical [facility] Work Phone: Start: 02-27-2023 End: 02-27-[address] Radha Khan Work Phone: [facility] Heart [facility] Work Phone: Start: 02-26-2023 End: 02-26-[address] Radha Khan Work Phone: [facility] Work Phone: Start: 02-26-2023 End: 02-26-[address] Radha Khan Work Phone: [facility] Work Phone: Start: 02-18-2023 End: 02-18-2023 Admission to same day surgery center Dr. Radha Khan Work Phone: [facility]-Surgical Day Care Start: 02-18-2023 End: 02-18-[address] Radha Khan Work Phone: [facility] Work Phone: Start: 02-04-2023 End: 02-04-[address] Radha Khan Work Phone: [facility] Work Phone: Start: 01-15-2023 End: 01-15-[address] Radha Khan Work Phone: [facility] Work Phone: Start: 01-15-2023 End: 01-15-[address] Radha Khan Work Phone: [facility] Work Phone: Start: 01-07-2023 End: 01-07-[address] Radha Khan Work Phone: [facility] Work Phone: Start: 01-07-2023 End: 01-07-[address] Radha Khan Work Phone: [facility] Work Phone: Start: 01-01-2023 End: 01-01-[address] Radha Khan Work Phone: [facility] Work Phone: Start: 01-01-2023 End: 01-01-[address] Radha Khan Work Phone: [facility], Specimen Work Phone: Start: 12-31-2022 End: 12-31-[address] Radha Khan Work Phone: [facility] Work Phone: Start: 12-10-2022 End: 12-10-[address] Radha Khan Work Phone: [facility] Work Phone: Start: 11-09-2022 End: 11-09-[address] Radha Khan Work Phone: [facility] Work Phone: Start: 11-09-2022 End: 11-09-[address] Radha Khan Work Phone: [facility] Work Phone: Start: 11-07-2022 End: 11-07-[address] Radha Khan Work Phone: [facility] Work Phone: Start: 11-07-2022 End: 11-07-[address] Radha Khan Work Phone: [facility] Work Phone: Start: 10-31-2022 End: 10-31-[address] Radha Khan Work Phone: [facility] Work Phone: Start: 10-31-2022 End: 10-31-[address] Radha Khan Work Phone: [facility] Start: 10-12-2022 End: 10-12-[address] Radha Khan Work Phone: [facility] Work Phone: Start: 10-12-2022 End: 10-12-[address] Radha Khan Work Phone: [facility] Work Phone: Start: 10-08-2022 End: 10-08-[address] Radha Khan Work Phone: [facility] Work Phone: Start: 10-01-2022 Non-patient / Non-visit Dr. Armen Khan Work Phone: [facility] Start: 10-01-2022 End: 10-01-[address] Radha Khan Work Phone: [facility] Work Phone: Start: 10-01-2022 End: 10-01-[address] Radha Khan Work Phone: [facility]-Cardiovascula r Services Work Phone: Start: 09-03-2022 End: 09-03-[address] Radha Khan Work Phone: [facility] Work Phone: Start: 08-03-2022 Non-patient / Non-visit Dr. Armen Khan Work Phone: [facility] Inpatient Physicians Start: 08-02-2022 Non-patient / Non-visit Dr. Armen Khan Work Phone: [facility] Start: 08-01-2022 End: 08-03-2022 Evaluation and management of inpatient Dr. Radha Khan Work Phone: [facility]-Progressive Care Unit Start: 08-01-2022 End: 08-03-[address] Radha Khan Work Phone: [facility] Work Phone: Start: 07-27-2022 End: 07-27-[address] Radha Khan Work Phone: [facility] Work Phone: Start: 07-27-2022 End: 07-27-[address] Radha Khan Work Phone: [facility] Start: 06-26-2022 End: 06-26-[address] Radha Khan Work Phone: [facility] Work Phone: Start: 06-26-2022 End: 06-26-[address] Radha Khan Work Phone: [facility] Start: 06-18-2022 End: 06-18-[address] Radha Khan Work Phone: [facility] Endocrinology Start: 06-12-2022 End: 06-12-[address] Rad[facility] Start: 05-21-2022 End: 05-21-[address] Radha Khan Work Phone: [facility] Heart Group Start: 05-18-2022 End: 05-18-[address] Radha Khan Work Phone: [facility] Start: 05-09-2022 End: 05-09-2022 Admission to same day surgery center Dr. Radha Khan Work Phone: [facility]-Intensive Care Medicine Specialist/Special Procedures Start: 05-09-2022 End: 05-09-[address] Radha Khan Work Phone: [facility] Work Phone: Start: 05-03-[address] Barney Khan Work Phone: [facility] Start: 05-03-2022 End: 05-03-[address] Radha Khan Work Phone: [facility] Heart Group Start: 04-27-2022 End: 04-27-[address] Radha Khan Work Phone: [facility] Work Phone: Start: 04-27-2022 End: 04-27-[address] Radha Khan Work Phone: [facility] Start: 04-17-2022 End: 04-17-[address] Radha Khan Work Phone: [facility] Work Phone: Start: 04-17-2022 End: 04-17-[address] Radha Khan Work Phone: [facility] Start: 03-12-2022 End: 03-12-[address] Radha Khan Work Phone: [facility] Start: 02-19-2022 End: 02-19-[address] Radha Khan Work Phone: [facility] Heart Group Start: 02-17-2022 Non-patient / Non-visit Dr. Armen Khan Work Phone: [facility] Start: 02-16-2022 End: 02-16-[address] Radha Khan Work Phone: [facility] Work Phone: Start: 02-16-2022 End: 02-16-[address] Radha Khan Work Phone: [facility]-Pulmonary Services/Neurology Start: 02-12-2022 End: 02-12-[address] Radha Khan [facility] Start: 01-15-2022 End: 01-15-[address] Radha Khan Work Phone: [facility] Endocrinology Start: 11-13-2021 End: 11-13-[address] Radha Khan Work Phone: [facility] Heart [facility] Start: 09-19-2021 End: 09-19-[address] Radha Khan Work Phone: [facility]-Pulmonary Services/Neurology Start: 09-07-2021 End: 09-07-[address] Radha Khan Work Phone: [facility] Heart [facility] Start: 09-04-2021 End: 09-04-2021 Emergency department patient visit Dr. Radha Khan Work Phone: [facility]-Emergency Department Start: 08-14-2021 Non-patient / Non-visit Dr. Armen Khan Work Phone: [facility] Start: 08-14-2021 End: 08-14-[address] Radha Khan Work Phone: [facility]-Cardiovascula r Services Start: 08-10-2021 End: 08-10-[address] Radha Khan Work Phone: [facility] Endocrinology Start: 08-09-2021 End: 08-09-[address] Radha Khan Work Phone: [facility]-Sleep Lab Start: 07-16-2021 End: 07-16-2021 Emergency department patient visit Dr. Radha Khan Work Phone: [facility]-Emergency Department Start: 07-13-2021 End: 07-13-[address] Radha Khan [facility] Start: 07-12-2021 End: 07-12-[address] Radha Khan Work Phone: [facility]-Laboratory Start: 07-12-2021 End: 07-12-[address] Radha Khan Work Phone: [facility] Heart Group Start: 06-29-2021 End: 06-29-[address] Radha Khan Work Phone: [facility] Endocrinology Start: 06-20-2021 Non-patient / Non-visit Dr. Armen Khan Work Phone: [facility] Inpatient Physicians Start: 06-19-2021 Non-patient / Non-visit Dr. Armen Khan Work Phone: [facility] Start: 06-19-2021 Non-patient / Non-visit Dr. Armen Khan Work Phone: [facility] Inpatient Physicians Start: 06-19-2021 End: 06-20-2021 Evaluation and management of inpatient Dr. Radha Khan Work Phone: [facility]-Progressive Care Unit Start: 06-15-2021 Non-patient / Non-visit Dr. Armen Khan Work Phone: [facility] Start: 06-15-2021 End: 06-15-[address] Radha Khan Work Phone: [facility]-Pulmonary Services/Neurology Start: 06-02-2021 End: 06-02-[address] Radha Khan Work Phone: [facility]-Pulmonary Services/Neurology Start: 06-02-2021 Non-patient / Non-visit Dr. Armen Khan Work Phone: [facility] Start: 06-01-2021 End: 06-01-[address] Radha Khan Work Phone: [facility]-Laboratory, [place] Start: 06-01-2021 End: 06-01-[address] Radha Khan Work Phone: [facility] Endocrinology Start: 05-30-2021 End: 05-30-[address] Radha Khan Work Phone: [facility] Start: 12-27-2010 End: 12-27-2010 Patient encounter procedure Karlos Aquino Work Phone: [facility] Start: 12-27-2010 Results Only Karlossalma lehman Work Phone: [facility] Procedures Date Procedure Procedure Detail Performing Clinician Start: 09-24-2024 Radiologic exam ches t single view Maeve Pringle MD Work Phone: Start: 09-24-2024 Brnchsc w/brncl alve olar lavage Dick Nguyen MD Work Phone: Start: 09-24-2024 Smr prim src gram/gi emsa stain bct fungi/cell Dick Nguyen MD Work Phone: Start: 09-24-2024 Cell count and Diffe rential panel - Body fluid Dikc Nguyen MD Work Phone: Start: 09-24-2024 Cell count misc body fluids w/differential count Dick Nguyen MD Work Phone: Start: 09-24-2024 Cell count panel - B francie fluid Dick Nguyen MD Work Phone: Start: 08-18-2024 Spmtry w/vc expirato ry tamir w/wo mxml vol vntj Rosalino Padron MD Work Phone: Start: 08-18-2024 PULMONARY STRESS KARLY T (6 MIN. WALK) Rosalino Padron MD Work Phone: Start: 08-18-2024 DLCO / [...] Bilateral Views W contrast IA Mey Loya [employer]OLOGICAL E[employer]OMIST [employer] Work Phone: Start: 05-06-2024 Ecg routine ecg w/le ast 12 lds trcg only w/o i&r Mey Loya [employer]OLOGICAL E[employer]OMIST - [employer] Work Phone: Start: 05-06-2024 Basic metabolic pane l calcium total Mey Nely Loya ECOLOGICAL ECONOMIST - [employer] Work Phone: Start: 05-05-2024 Blood count smear [...] injection of cervical spinal nerve root Dr. Radha Khan Work Phone: Start: 02-18-2023 Injection of [...] Author Start: 10-03-2028 Lipid panel Lipid Panel [facility] Start: 09-23-2025 Creatinine measurement Creatinine Level [facility] Start: 09-23-2025 Potassium measurement Potassium Level [facility] Start: 07-23-2025 Echocardiography Echocardiogram [facility] Start: 05-06-2025 Creatinine measurement Creatinine Level [facility] Start: 05-06-2025 Diabetes: Estimated Glomerular Filtration Rate for Kidney Health Diabetes: Estimated Glomerular Filtration Rate for Kidney Health [facility] Start: 05-06-2025 Potassium measurement Potassium Level [facility] Start: 12-04-2024 End: 12-04-2024 Patient encounter procedure 12/04/2024 1:00 PM EDT Office Visit [facility] [address] [facility] [address] [place] [id number] [place] [address] [place] [address] [facility] Start: 10-04-2024 Creatinine measurement Creatinine Level [facility] Start: 10-04-2024 Diabetes: Estimated Glomerular Filtration Rate for Kidney Health Diabetes: Estimated Glomerular Filtration Rate for Kidney Health [facility] Start: 10-04-2024 Potassium measurement Potassium Level [facility] Start: 10-03-2024 Diabetes mellitus screening Diabetes Screening [facility] Start: 10-03-2024 Hemoglobin A1c measurement Diabetes: Hemoglobin A1C [facility] Start: 10-03-2024 Lipid panel Lipid Panel [facility] Start: 08-28-2024 End: 08-28-2025 DLCO / Diffusion Capacity DLCO / Diffusion Capacity PFT Routine ILD (interstitial lung disease) (Multi) Chronic respiratory failure with hypoxia Expected: 08/28/2024 (Approximate), Expires: 08/28/2025 [facility] Work Phone: Comment on above: Expected: 08/28/2024 (Approximate), Expi res: 08/28/2025 Start: 08-28-2024 End: 08-28-2025 Pulmonary Stress Test (6 Min. Walk) Pulmonary Stress Test (6 Min. Walk) PFT Routine ILD (interstitial lung disease) (Multi) Chronic respiratory failure with hypoxia Expected: 08/28/2024 (Approximate), Expires: 08/28/2025 [facility] Work Phone: Comment on above: Expected: 08/28/2024 (Approximate), Expi res: 08/28/2025 Start: 08-28-2024 End: 08-28-2025 Spirometry Pre/Post Bronchodilator Spirometry Pre/Post Bronchodilator PFT Routine ILD (interstitial lung disease) (Multi) Chronic respiratory failure with hypoxia Expected: 08/28/2024 (Approximate), Expires: 08/28/2025 [facility] Service Area Work Phone: Comment on above: Expected: 08/28/2024 (Approximate), Expi res: 08/28/2025 Start: 08-28-2024 End: 08-28-2024 Patient encounter procedure [facility] Start: 08-12-2024 X-ray of chest, PA and lateral views [facility] Start: 08-07-2024 End: 08-07-2025 DLCO / Diffusion Capacity DLCO / Diffusion Capacity PFT Routine ILD (interstitial lung disease) (Multi) Expected: 08/07/2024 (Approximate), Expires: 08/07/2025 [facility] Work Phone: Comment on above: Expected: 08/07/2024 (Approximate), Expi res: 08/07/2025 Start: 08-07-2024 End: 08-07-2025 Pulmonary Stress Test (6 Min. Walk) Pulmonary Stress Test (6 Min. Walk) PFT Routine ILD (interstitial lung disease) (Multi) Expected: 08/07/2024 (Approximate), Expires: 08/07/2025 [facility] Work Phone: Comment on above: Expected: 08/07/2024 (Approximate), Expi res: 08/07/2025 Start: 08-07-2024 End: 08-07-2025 Spirometry Pre/Post Bronchodilator Spirometry Pre/Post Bronchodilator PFT Routine ILD (interstitial lung disease) (Multi) Expected: 08/07/2024 (Approximate), Expires: 08/07/2025 [facility] Service Area Work Phone: Comment on above: Expected: 08/07/2024 (Approximate), Expi res: 08/07/2025 Start: 07-24-2024 End: 07-24-2024 Patient encounter procedure [facility] Start: 07-23-2024 End: 07-23-2024 Patient encounter procedure 07/23/2024 2:[address] [facility] [address] [facility] [address] [place] [phone] [facility] Start: 07-19-2024 DTaP/Tdap/Td Vaccines (2 - Td or Tdap) DTaP/Tdap/Td Vaccines (2 - Td or Tdap) [facility] Start: 07-13-2024 End: 07-13-2024 Patient encounter procedure 07/13/2024 2:00 PM EDT Appointment [facility] [address] [facility] [address] [place] [address] [facility] Start: 06-26-2024 End: 06-26-2025 Aldolase [Enzymatic activity/volume] in Serum or Plasma Aldolase Lab Routine ILD (interstitial lung disease) (Multi) Expected: 06/26/2024 (Approximate), Expires: 06/26/2025 [facility] Work Phone: Comment on above: Expected: 06/26/2024 (Approximate), Expi res: 06/26/2025 Start: 06-26-2024 End: 06-26-2025 C reactive protein [Mass/volume] in Serum or Plasma C-Reactive Protein Lab Routine ILD (interstitial lung disease) (Multi) Expected: 06/26/2024 (Approximate), Expires: 06/26/2025 [facility] Work Phone: Comment on above: Expected: 06/26/2024 (Approximate), Expi res: 06/26/2025 Start: 06-26-2024 End: 06-26-2025 Complete Pulmonary Function Test (Spirometry/DLCO/Lung Volumes) Complete Pulmonary Function Test (Spirometry/DLCO/Lung Volumes) PFT Routine ILD (interstitial lung disease) (Multi) Expected: 06/26/2024 (Approximate), Expires: 06/26/2025 [facility] Work Phone: Comment on above: Expected: 06/26/2024 (Approximate), Expi res: 06/26/2025 Start: 06-26-2024 End: 06-26-2025 Creatine kinase [Enzymatic activity/volume] in Serum or Plasma Creatine Kinase Lab Routine ILD (interstitial lung disease) (Multi) Expected: 06/26/2024 (Approximate), Expires: 06/26/2025 [facility] Work Phone: Comment on above: Expected: 06/26/2024 (Approximate), Expi res: 06/26/2025 Start: 06-26-2024 End: 06-26-[address] chest high resolution Imaging Routine ILD (interstitial lung disease) (Multi) Expected: 06/26/2024 (Approximate), Expires: 06/26/2025 [facility] Service Area Work Phone: Comment on above: Expected: 06/26/2024 (Approximate), Expi res: 06/26/2025 Start: 06-26-2024 End: 06-26-2025 Cyclic citrullinated peptide IgG Ab [Units/volume] in Serum or Plasma Citrulline Antibody, IgG Lab Routine ILD (interstitial lung disease) (Multi) Expected: 06/26/2024 (Approximate), Expires: 06/26/2025 [facility] Work Phone: Comment on above: Expected: 06/26/2024 (Approximate), Expi res: 06/26/2025 Start: 06-26-2024 End: 06-26-2025 Erythrocyte sedimentation rate Sedimentation Rate Lab Routine ILD (interstitial lung disease) (Multi) Expected: 06/26/2024 (Approximate), Expires: 06/26/2025 [facility] Work Phone: Comment on above: Expected: 06/26/2024 (Approximate), Expi res: 06/26/2025 Start: 06-26-2024 End: 06-26-2025 Extended Myositis Panel Extended Myositis Panel Lab Routine ILD (interstitial lung disease) (Multi) Expected: 06/26/2024 (Approximate), Expires: 06/26/2025 [facility] Work Phone: Comment on above: Expected: 06/26/2024 (Approximate), Expi res: 06/26/2025 Start: 06-26-2024 End: 06-26-2025 Hypersensitivity Pneumonitis Panel Hypersensitivity Pneumonitis Panel Lab Routine ILD (interstitial lung disease) (Multi) Expected: 06/26/2024 (Approximate), Expires: 06/26/2025 [facility] Work Phone: Comment on above: Expected: 06/26/2024 (Approximate), Expi res: 06/26/2025 Start: 06-26-2024 End: 06-26-2025 MPO, PR3 with Reflex to ANCA MPO, PR3 with Reflex to ANCA Lab Routine ILD (interstitial lung disease) (Multi) Expected: 06/26/2024 (Approximate), Expires: 06/26/2025 [facility] Work Phone: Comment on above: Expected: 06/26/2024 (Approximate), Expi res: 06/26/2025 Start: 06-26-2024 End: 06-26-2025 Nuclear Ab [Presence] in Serum by Hep2 substrate RICARDO with Reflex to NEELA Lab Routine ILD (interstitial lung disease) (Multi) Expected: 06/26/2024 (Approximate), Expires: 06/26/2025 [facility] Work Phone: Comment on above: Expected: 06/26/2024 (Approximate), Expi res: 06/26/2025 Start: 06-26-2024 End: 06-26-2025 Pulmonary Stress Test (6 Min. Walk) Pulmonary Stress Test (6 Min. Walk) PFT Routine ILD (interstitial lung disease) (Multi) Expected: 06/26/2024 (Approximate), Expires: 06/26/2025 [facility] Work Phone: Comment on above: Expected: 06/26/2024 (Approximate), Expi res: 06/26/2025 Start: 06-26-2024 End: 06-26-2025 Rheumatoid factor [Units/volume] in Serum by Nephelometry Rheumatoid Factor Lab Routine ILD (interstitial lung disease) (Multi) Expected: 06/26/2024 (Approximate), Expires: 06/26/2025 [facility] Work Phone: Comment on above: Expected: 06/26/2024 (Approximate), Expi res: 06/26/2025 Start: 06-26-2024 End: 06-26-2026 US Heart Transthoracic Transthoracic Echo (TTE) Complete Echocardiography Routine Pulmonary hypertension (Multi) Expected: 06/26/2024 (Approximate), Expires: 06/26/2026 [facility] Work Phone: Comment on above: Expected: 06/26/2024 (Approximate), Expi res: 06/26/2026 Start: 05-06-2024 End: 05-06-2024 Patient encounter procedure 05/06/2024 10:00 AM EST Appointment [facility] [address] [place] [address] [facility] Start: 04-27-2024 End: 04-27-2024 Patient encounter procedure 04/27/2024 3:00 PM EST Office Visit [facility] [place] [address] [place] [id number] Suzy Jauregui MD [address] [place], [place] [id number] [facility] [place] Start: 04-25-2024 Patient discharge [facility] Start: 04-24-2024 Dual pressure spontaneous ventilation support [facility] Start: 04-24-2024 Aspiration precautions [facility] Start: 04-24-2024 Assessment of risk of venous thromboembolism [facility] Start: 04-24-2024 Cardiac monitoring [facility] Start: 04-24-2024 Care regimes management [facility] Start: 04-24-2024 Catheterization of vein [facility] Start: 04-24-2024 Consultation [facility] Start: 04-24-2024 Continuous pulse oximetry [facility] Start: 04-24-2024 Elevation of head of bed [facility] Start: 04-24-2024 Exercises [facility] Start: 04-24-2024 Fall prevention [facility] Start: 04-24-2024 Inhalation therapy procedure [facility] Start: 04-24-2024 Insertion of catheter into peripheral vein [facility] Start: 04-24-2024 Introduction of urinary catheter [facility] Start: 04-24-2024 Measuring intake and output [facility] Start: 04-24-2024 Notification of physician [facility] Start: 04-24-2024 Oxygen therapy [facility] Start: 04-24-2024 Patient referral to dietitian [facility] Start: 04-24-2024 Providing care according to standard [facility] Start: 04-24-2024 Provision of activity privileges [facility] Start: 04-24-2024 Referral to occupational therapist [facility] Start: 04-24-2024 Referral to service [facility] Start: 04-24-2024 Speech therapy assessment [facility] Start: 04-24-2024 Telemedicine consultation with patient [facility] Start: 04-24-2024 Tobacco use cessation education [facility] Start: 04-24-2024 End: 04-24-2024 [facility] Start: 04-24-2024 Following clinical pathway protocol [facility] Start: 04-24-2024 Admission procedure [facility] Start: 04-24-2024 Patient referral to dietitian [facility] Start: 04-24-2024 [facility] Start: 04-15-2024 Referral to service [facility] Start: 04-15-2024 Patient discharge [facility] Start: 04-15-2024 Fluid restriction [facility] Start: 04-14-2024 [facility] Start: 04-13-2024 Consultation [facility] Start: 04-13-2024 [facility] Start: 04-13-2024 Elevation of head of bed [facility] Start: 04-13-2024 Patient education [facility] Start: 04-13-2024 [facility] Start: 04-12-2024 Following clinical pathway protocol [facility] Start: 04-12-2024 Ambulation without limitation [facility] Start: 04-12-2024 Assessment of risk of venous thromboembolism [facility] Start: 04-12-2024 Care regimes management [facility] Start: 04-12-2024 Catheterization of vein [facility] Start: 04-12-2024 Elevation of affected extremity [facility] Start: 04-12-2024 Inhalation therapy procedure [facility] Start: 04-12-2024 Insertion of catheter into peripheral vein [facility] Start: 04-12-2024 Measuring intake and output [facility] Start: 04-12-2024 Notification of physician [facility] Start: 04-12-2024 Oxygen therapy [facility] Start: 04-12-2024 Patient education [facility] Start: 04-12-2024 Providing care according to standard [facility] Start: 04-12-2024 End: 04-12-2024 [facility] Start: 04-12-2024 Admission procedure [facility] Start: 04-12-2024 Patient referral to dietitian [facility] Start: 02-13-2024 End: 02-12-2025 RFA Cerebral arteries Bilateral Views W contrast IA IR angiogram cerebral with possible intervention Imaging Routine Ischemic cerebrovascular accident (CVA) (HCC) Bilateral carotid artery stenosis Expected: 02/13/2024, Expires: 02/12/2025 [employer] Work Phone: Comment on above: Expected: 02/13/2024, Expires: Start: 01-22-2024 Subsequent hospital visit by physician 01/22/2024 10:45 AM EDT Hospital Encounter [facility] [address] [place] [address] Oziel Culp MD [address] [place] [address] [facility] [address] Start: 01-20-2024 End: 01-05-2025 CTA Head vessels and Neck vessels WO and W contrast IV CTA head neck angio w and wo IV contrast Imaging Routine Bilateral carotid artery stenosis Ischemic cerebrovascular accident (CVA) (HCC) Expected: 01/20/2024, Expires: 01/05/2025 [employer] Work Phone: Comment on above: Expected: 01/20/2024, Expires: Start: 01-16-2024 End: 01-15-2025 Creatinine [Mass/volume] in Serum or Plasma Creatinine, Serum Lab Routine Chronic kidney disease, unspecified CKD stage Expected: 01/16/2024 (Approximate), Expires: 01/15/2025 [employer] Work Phone: Comment on above: Expected: 01/16/2024 (Approximate), Expi res: 01/15/2025 Start: 12-01-2023 Influenza vaccination Influenza Vaccine (#1) [employer] Start: 2023 RSV Immunization aged 60 or older (1 - 1-dose 60+ series) RSV Immunization aged 60 or older (1 - 1-dose 60+ series) [employer] Start: 2023 RSV Immunization for Adults (1 - Risk 60-74 years 1-dose series) RSV Immunization for Adults (1 - Risk 60-74 years 1-dose series) [facility] Start: 07-03-2023 Patient referral [facility] Work Phone: Start: 02-18-2023 Anesthesia cervical spine & cord nos ANESTH SPINE CORD SURGERY [facility] Start: 02-18-2023 Njx dx/ther agt pvrt facet jt crv/thrc 1 level INJ PARAVERT F JNT C/T 1 [facility] Start: 02-18-2023 Njx dx/ther agt pvrt facet jt crv/thrc 2nd level INJ PARAVERT F JNT C/T 2 [facility] Start: 02-18-2023 Njx dx/ther agt pvrt facet jt crv/thrc 3+ level INJ PARAVERT F JNT C/T 3 [facility] Start: 02-18-2023 Fluoroscopy guided injection of cervical spinal nerve root OR-Steroid Inj/Cer Thor/1st L [facility] Start: 02-18-2023 Injection of facet joint [facility] Start: 02-18-2023 X-ray of cervical spine Cerv Spine 4 or 5 Views [facility] Start: 02-18-2023 Patient discharge [facility] Start: 12-10-2022 Patient referral [facility] Work Phone: Start: 10-08-2022 Patient referral [facility] Work Phone: Start: 08-03-2022 Patient discharge [facility] Start: 08-03-2022 Referral to occupational therapist [facility] Start: 08-03-2022 Referral to service [facility] Start: 08-02-2022 [facility] Start: 08-02-2022 Following clinical pathway protocol [facility] Start: 08-02-2022 Assessment of risk of venous thromboembolism [facility] Start: 08-02-2022 Cardiac monitoring [facility] Start: 08-02-2022 Care regimes management [facility] Start: 08-02-2022 Catheterization of vein [facility] Start: 08-02-2022 Elevation of head of bed [facility] Start: 08-02-2022 Exercises [facility] Start: 08-02-2022 Fall prevention [facility] Start: 08-02-2022 Implementation of planned interventions [facility] Start: 08-02-2022 Inhalation therapy procedure [facility] Start: 08-02-2022 Insertion of catheter into peripheral vein [facility] Start: 08-02-2022 Introduction of urinary catheter [facility] Start: 08-02-2022 Measuring intake and output [facility] Start: 08-02-2022 Notification of physician [facility] Start: 08-02-2022 Oxygen therapy [facility] Start: 08-02-2022 End: 08-02-2022 Patient referral to dietitian [facility] Start: 08-02-2022 Providing care according to standard [facility] Start: 08-02-2022 Provision of activity privileges [facility] Start: 08-02-2022 Referral to occupational therapist [facility] Start: 08-02-2022 Referral to service [facility] Start: 08-02-2022 Speech therapy assessment [facility] Start: 08-02-2022 Tobacco use cessation education [facility] Start: 08-02-2022 [facility] Start: 08-01-2022 Admission procedure [facility] Start: 08-14-2021 Radionuclide imaging of perfusion of myocardium under exercise stress Nuclear Stress Test - [facility] Work Phone: Start: 06-20-2021 Patient discharge [facility] Work Phone: Start: 06-19-2021 Following clinical pathway protocol [facility] Work Phone: Start: 06-19-2021 Care regimes management [facility] Work Phone: Start: 06-19-2021 Notification of physician [facility] Work Phone: Start: 06-19-2021 End: 06-19-2021 [facility] Work Phone: Start: 06-19-2021 Admission procedure [facility] Work Phone: Start: 08-05-2020 COVID-19 Vaccine (3 - Moderna risk series) COVID-19 Vaccine (3 - Moderna risk series) [facility] Start: 07-03-2020 PROSTATE CANCER SCREENING DISCUSSION PROSTATE CANCER SCREENING DISCUSSION [facility] Start: 12-01-2019 Influenza vaccination INFLUENZA (#1) [facility] Start: 09-20-2016 Thyroid stimulating hormone measurement TSH Level [facility] Start: 09-09-2016 [object Object] DIABETIC FOOT EXAM [facility] Start: 12-12-2015 HbA1c (Bld) [Mass fraction] HBA1C [facility] Start: 12-07-2015 Pneumococcal vaccination Pneumococcal Vaccine (2 of 2 - PCV) [facility] Start: 12-07-2015 Pneumococcal Vaccine: 50+ Years (2 of 2 - PCV) Pneumococcal Vaccine: 50+ Years (2 of 2 - PCV) [facility] Start: 12-07-2015 Pneumococcal Vaccine: Pediatrics (0 to 5 Years) and At-Risk Patients (6 to 64 Years) (2 of 2 - PCV) Pneumococcal Vaccine: Pediatrics (0 to 5 Years) and At-Risk Patients (6 to 64 Years) (2 of 2 - PCV) [facility] Start: 08-24-2013 SHINGRIX VACCINE (1 of 2) SHINGRIX VACCINE (1 of 2) [facility] Start: 08-24-2013 Tuberculosis screening COLORECTAL CANCER SCREENING,SEE MODIFIER [facility] Start: 03-10-2009 MMR Vaccines (1 of 1 - Standard series) MMR Vaccines (1 of 1 - Standard series) [facility] Start: 08-24-1982 Urine microalbumin profile DTAP,TDAP,TD (1 - Tdap) [facility] Start: 08-24-1981 ANNUAL PCP TEAM CHRONIC DISEASE VISIT ANNUAL PCP TEAM CHRONIC DISEASE VISIT [facility] Start: 08-24-1981 BP CONTROLLED (<130/80) BP CONTROLLED (<130/80) [facility] Start: 08-24-1981 Diabetes: Urine Albumin-Creatinine Ratio for Kidney Health Diabetes: Urine Albumin-Creatinine Ratio for Kidney Health [facility] Start: 08-24-1981 Hepatitis B surface antibody level LDL CHOLESTEROL [facility] Start: 08-24-1981 HEPATITIS C SCREENING HEPATITIS C SCREENING [facility] Start: 08-24-1981 Hepatitis C screening Hepatitis C Screening [facility] Start: 08-24-1981 HIV SCREENING HIV SCREENING [facility] Start: 1975 Depression Screening Depression Screening [facility] Start: 08-24-1973 Diabetic foot examination Diabetes: Foot Exam [facility] Start: 08-24-1973 Glaucoma screening Diabetes: Retinopathy Screening [facility] Start: 08-24-1973 Hepatitis B screening URINE ALBUMIN:CREATININE RATIO [facility] Start: 08-24-1973 Hepatitis C antibody, confirmatory test DILATED RETINAL EXAM [facility] Start: 08-24-1973 Preventive dental service Diabetes: Dental Exam [facility] Start: 1963 Creatinine measurement Creatinine Level [facility] Start: 1963 Echocardiography Echocardiogram [facility] Start: 1963 HIV screening HIV Screening [facility] Start: 1963 Potassium measurement Potassium Level [facility] Start: 1963 Screening for malignant neoplasm of colon [facility] Start: 1963 Skin Cancer Screening Skin Cancer Screening [facility] Start: 1963 Thyroid stimulating hormone measurement TSH Level [facility] Start: 1963 Yearly Adult Physical Yearly Adult Physical [facility] Aspergillus Galactom vicenta EIA (Non-Blood Specimen) [facility] Work Phone: Comment on above: Release Upon Ordering for 1 Occurrences starting 09/24/2024 Bacteria identified in Unspecified specimen by Respiratory culture Respiratory Culture/Smear Microbiology Routine ILD (interstitial lung disease) ([facility]) 09/24/2024 8:39 AM EDT [facility] Work Phone: CBC W Auto Different ial panel - Blood [facility] End: 07-24-2024 Complete Pulmonary Function Test (Spirometry/DLCO/Lung Volumes) [facility] Work Phone: Comment on above: Once for 1 Occurrences starting 07/25/19 until 07/24/2024 DLCO / Diffusion Capacity DLCO / Diffusion Capacity PFT Routine ILD (interstitial lung disease) (Multi) 08/18/2024 10:39 AM EDT [facility] Work Phone: ECG 12 lead ECG 12 lead CV E CG Routine 05/06/2024 9:00 AM EST [facility] Work Phone: Ferritin [Mass/volum e] in Serum or Plasma [facility] [employer] [Mass/volume] in Serum or Plasma [facility] Fungus identified in Unspecified specimen by Culture [facility] Work Phone: Comment on above: Release Upon Ordering for 1 Occurrences starting 09/24/2024 Hepatic function panel [facility] Histoplasma capsulat um Ag [Units/volume] in Serum by Immunoassay [facility] Work Phone: Comment on above: Release Upon Ordering for 1 Occurrences starting 09/24/2024 Iron and Iron bindin g capacity panel - Serum or Plasma [facility] Cisco and lambda lig ht chains [facility] Legionella PCR Panel [facility] Work Phone: Comment on above: Release Upon Ordering for 1 Occurrences starting 09/24/2024 Lipid 1996 panel - S verna or Plasma [facility] Lipid 1995 panel - S verna or Plasma [facility] Mycobacterium sp identified in Unspecified specimen by Organism specific culture [facility] Work Phone: Comment on above: Release Upon Ordering for 1 Occurrences starting 09/24/2024, 1 completed NM Heart Views W str ess and W radionuclide IV [facility] Work Phone: Non-gynecological cytology method study [facility] Work Phone: Comment on above: Release Upon Ordering for 1 Occurrences starting 09/24/2024, 1 completed End: 09-24-2024 Pathologist review of results [facility] Work Phone: Comment on above: Once (Lab) for 1 Occurrences starting until 09/24/2024, 1 completed Patient Education [facility] Work Phone: Patient referral [facility] Work Phone: End: 07-24-2024 Pulmonary Stress Test (6 Min. Walk) [facility] Work Phone: Comment on above: Once for 1 Occurrences starting 07/25/19 until 07/24/2024 Pulmonary Stress Karly t (6 Min. Walk) Pulmonary Stress Test (6 Min. Walk) PFT Routine ILD (interstitial lung disease) (Multi) 08/18/2024 11:30 AM EDT [facility] Area Work Phone: Reticulocyte count [facility] Spirometry Pre/Post Bronchodilator Spirometry Pre/Post Bronchodilator PFT Routine ILD (interstitial lung disease) (Multi) 08/18/2024 11:36 AM EDT [facility] Service Area Work Phone: Surgical pathology study [facility] Work Phone: Comment on above: Release Upon Ordering for 1 Occurrences starting 09/24/2024, 1 completed End: 09-24-2024 T-cell subsets CD4 and CD8 panel - Blood [facility] Work Phone: Comment on above: Release Upon Ordering for 1 Occurrences starting 09/24/2024 Once for 1 Occurrenc es starting 09/24/2024 until 09/24/2024 T4 free measurement [facility] T4 free measurement [facility] T4 free measurement [facility] Thiamine measurement [facility] Thyroid stimulating hormone measurement [facility] Thyroid stimulating hormone measurement [facility] Thyroid stimulating hormone measurement [facility] US Carotid arteries [facility] Work Phone: US Carotid arteries [facility] US Carotid arteries [facility] End: 07-23-2024 US Heart Transthoracic [facility] Work Phone: Comment on above: Once for 1 Occurrences starting 07/24/19 25 until 07/23/2024 Vitamin B12 measurement [facility] Immunizations Immunization Date Immunization Notes Care Provider Lv magdaleno 01-13-2024 RSV Adult Recombinan t (Arexvy) Dr. Radha Khan MD Work Phone: [facility] 01-10-2024 influenza, seasonal, injectable, preservative free Dr. Radha Khan MD Work Phone: [facility] 01-18-2023 influenza virus vacc ine, unspecified formulation CHITO ESCUDERO [facility] 01-18-2023 influenza, injectabl e, quadrivalent, preservative free Oziel Culp MD Work Phone: [facility] 02-01-2022 zoster vaccine recombinant CHITO BUENROSTRO ECOLOGICAL ECONOMIST[employer] [facility] 01-26-2022 influenza virus vacc ine, unspecified formulation CHITO BUENROSTRO ECOLOGICAL ECONOMIST[employer] [facility] 01-26-2022 influenza, injectabl e, quadrivalent, contains preservative Oziel Culp MD Work Phone: [facility] 01-26-2022 influenza, injectabl e, quadrivalent, preservative free Dr. Radha Khan Work Phone: [facility] 01-26-2022 influenza, seasonal, injectable Dr. Radha Khan Work Phone: [facility] 01-16-2021 zoster vaccine recombinant CHITO BUENROSTRO ECOLOGICAL ECONOMIST-[employer] [facility] 01-06-2021 influenza virus vacc ine, unspecified formulation CHITO BUENROSTRO ECOLOGICAL ECONOMIST[employer] [facility] 01-06-2021 influenza, injectabl e, quadrivalent, contains preservative Oziel Culp MD Work Phone: [facility] 11-30-2020 influenza, injectabl e, quadrivalent, preservative free Dr. Radha Khan Work Phone: [facility] 11-30-2020 influenza, seasonal, injectable Dr. Radha Khan Work Phone: [facility] 07-08-2020 Covid (Moderna) Dr. Radha fuller Work Phone: [facility] 06-10-2020 Tayid (Moderna) Dr. Radha fuller Work Phone: [facility] 01-27-2020 influenza virus vacc ine, unspecified formulation CHITO BUENROSTRO ECOLOGICAL ECONOMIST[employer] [facility] 01-27-2020 influenza, injectabl e, quadrivalent, contains preservative Oziel Culp MD Work Phone: [facility] 01-16-2019 influenza virus vacc ine, unspecified formulation CHITO BUENROSTRO ECOLOGICAL ECONOMIST[employer] [facility] 01-16-2019 influenza, injectabl e, quadrivalent, contains preservative Oziel Culp MD Work Phone: [facility] 01-21-2018 influenza virus vacc ine, unspecified formulation CHITO BUENROSTRO ECOLOGICAL ECONOMIST[employer] [facility] 01-21-2018 influenza, seasonal, injectable Oziel Culp MD Work Phone: [facility] 12-24-2017 influenza, injectabl e, quadrivalent, preservative free Dr. Radha Khan Work Phone: [facility] 12-24-2017 influenza, seasonal, injectable Dr. Radha Khan Work Phone: [facility] 12-09-2015 influenza virus vacc ine, unspecified formulation CHITO BUENROSTRO ECOLOGICAL ECONOMIST-[employer] [facility] 12-09-2015 influenza, seasonal, injectable Oziel Culp MD Work Phone: [facility] 12-24-2014 influenza virus vacc ine, unspecified formulation CHITO BUENROSTRO ECOLOGICAL ECONOMIST-[employer] [facility] 12-24-2014 influenza, seasonal, injectable Oziel Culp MD Work Phone: [facility] 12-06-2014 pneumococcal polysaccharide vaccine, 23 valent CHITO BUENROSTRO ECOLOGICAL ECONOMIST-[employer] [facility] 07-19-2014 tetanus toxoid, redu federica diphtheria toxoid, and acellular pertussis vaccine, adsorbed CHITO BUENROSTRO ECOLOGICAL ECONOMIST-[employer] [facility] 02-10-2014 influenza virus vacc ine, unspecified formulation CHITO MEDLEYSHANNAN ECOLOGICAL ECONOMIST-[employer] [facility] 02-10-2014 influenza, seasonal, injectable Oziel Culp MD Work Phone: [facility] 02-10-2009 novel influenza-H1N1 -09, preservative-free, injectable Oziel Culp MD Work Phone: [facility] Payers Date Payer Category Payer Managed Care (Private) [employer] [facility] Member Subscriber Plan / Payer (Effective 2024-Present) Name: Krunal Leos Relation to Subscriber: Self Name: Krunal Leos Payer ID: Not on file Type: Not on file Address: [address] [place] [id number] 09-19-2023 Self-pay [id number] 07-31-2023 Commercial Managed C are - HMO [id number] 07-31-2023 Unknown MEDICAL MUTUAL M MO SUPERMED [id number] 07/31/2023-Present [address] [place] [address] Commercial [id number] 02-27-2023 Unknown [id number] 10-30-2014 Unknown [id number] 07-30-2009 Unknown THP [facility] [place] THP HMO [id number] 07/30/2009-Present HMO [id number] 07-30-1996 Unknown THP [employer] HMO [id number] 07/30/1996-03/31/2015 HMO [id number]. [id number] 1965 Unknown [id number] 2.16840.1.189034.3.579.2. 627 1963 Unknown [id number] 2.16840.1.228392.3.579.2. 1241 1963 Unknown [id number] 2.840.1.091402.3.579.2. 1246 1963 Unknown [id number] 2.840.1.357857.3.579.2. 1242 1963 Unknown [id number] 2.16840.1.619379.3.579.2. 1242 1963 Unknown [id number] 2.16840.1.170178.3.579.2. 1244 1963 Unknown [id number] 2.840.1.432232.3.579.2. 1244 1963 Unknown [id number] 2.16840.1.160897.3.579.2. 1244 1963 Unknown [id number] 2.16840.1.853724.3.579.2. 1244 1963 Unknown [id number] 2.16840.1.566791.3.579.2. 1244 1963 Unknown [id number] 2.16840.1.584737.3.579.2. 1244 1963 Unknown [id number] 2.16.840.1.094400.3.579.2. 1245 1963 Unknown [id number] 2.16.840.1.402943.3.579.2. 1245 Unknown [id number] Unknown [id number] 2.16.840.1.768449.3.579.2. 462 Unknown [id number] 2.16.840.1.186084.3.579.2. 462 Unknown [id number] 2.16.840.1.550259.3.579.2. 462 Unknown [id number] 2.16.840.1.465998.3.579.2. 462 Unknown [id number] 2.16.840.1.889674.3.579.2. 462 Unknown [id number] 2.16.840.1.833002.3.579.2. 462 Unknown [id number] 2.16.840.1.361226.3.579.2. 462 Unknown [id number] 2.16.840.1.348646.3.579.2. 462 Unknown [id number] 2.16.840.1.993448.3.579.2. 462 Unknown [id number] 2.16.840.1.827216.3.579.2. 462 Unknown [id number] 2.16.840.1.851706.3.579.2. 462 Unknown [id number] 2.16.840.1.422714.3.579.2. 462 Unknown [id number] 2.16.840.1.028117.3.579.2. 462 Unknown [id number] 2.16.840.1.537779.3.579.2. 462 Unknown [id number] 2.16.840.1.565154.3.579.2. 462 Unknown [id number] 2.16.840.1.291629.3.579.2. 462 Unknown [id number] 2.16.840.1.863153.3.579.2. 462 Unknown [id number] 2.16.840.1.480129.3.579.2. 462 Unknown [id number] 2.16.840.1.003547.3.579.2. 462 Unknown [id number] 2.16.840.1.323347.3.579.2. 462 Unknown [id number] 2.16.840.1.081920.3.579.2. 462 Unknown [id number] 2.16840.1.606551.3.579.2. 462 Unknown [id number] 2.16.840.1.814100.3.579.2. 462 Unknown [id number] 2.840.1.973609.3.579.2. 462 Unknown [id number] 2.840.1.336728.3.579.2. 462 Unknown [id number] 2.16840.1.880796.3.579.2. 462 Unknown [id number] 2.16840.1.487514.3.579.2. 462 Unknown [id number] 2.16840.1.253546.3.579.2. 462 Unknown [id number] 2.840.1.303555.3.579.2. 462 Unknown [id number] 2.16840.1.226248.3.579.2. 462 Unknown [id number] 2.16.840.1.230644.3.579.2. 462 Unknown [id number] 2.16.840.1.627691.3.579.2. 462 Unknown [id number] 2.16840.1.620150.3.579.2. 462 Unknown [id number] 2.16840.1.725165.3.579.2. 462 Unknown [id number] 2.16.840.1.862958.3.579.2. 462 Unknown [id number] 2.16.840.1.207378.3.579.2. 462 Unknown [id number] 2.16.840.1.227699.3.579.2. 462 Unknown [id number] 2.16.840.1.195564.3.579.2. 462 Unknown [id number] 2.16.840.1.390285.3.579.2. 462 Unknown [id number] 2..840.1.856881.3.579.2. 462 Unknown [id number] 2.840.1.030209.3.579.2. 462 Unknown [id number] 2.840.1.032807.3.579.2. 462 Unknown [id number] 2.840.1.370591.3.579.2. 462 Unknown [id number] 2.840.1.213122.3.579.2. 462 Unknown [id number] 2.840.1.811701.3.579.2. 462 Unknown [id number] 2..840.1.588206.3.579.2. 462 Unknown [id number] 2.840.1.689697.3.579.2. 462 Unknown [id number] 2.840.1.304257.3.579.2. 462 Unknown [id number] 2.16.840.1.985875.3.579.2. 462 Unknown [id number] 2.840.1.700191.3.579.2. 462 Unknown [id number] 2.16.840.1.395353.3.579.2. 462 Unknown [id number] 2.16.840.1.524754.3.579.2. 462 Unknown [id number] 2.840.1.636347.3.579.2. 462 Unknown [id number] 2.840.1.372742.3.579.2. 462 Unknown [id number] 2.16840.1.091257.3.579.2. 462 Unknown [id number] 2.840.1.773822.3.579.2. 462 Unknown [id number] 2.840.1.980585.3.579.2. 462 Unknown [id number] 2.840.1.475014.3.579.2. 462 Unknown [id number] 2.840.1.697309.3.579.2. 462 Unknown [id number] 2.840.1.150487.3.579.2. 462 Unknown [id number] 2.840.1.668900.3.579.2. 462 Unknown [id number] 2.840.1.443938.3.579.2. 462 Unknown [id number] .840.1.875009.3.579.2. 462 Unknown [id number] .840.1.718370.3.579.2. 462 Unknown [id number] 2.840.1.300448.3.579.2. 462 Unknown [id number] 2.840.1.087995.3.579.2. 462 Unknown [id number] 2.840.1.989711.3.579.2. 462 Unknown [id number] 2.840.1.524258.3.579.2. 462 Unknown [id number] 2.840.1.044177.3.579.2. 462 Unknown [id number] 2.840.1.719090.3.579.2. 462 Unknown [id number] 2.840.1.511402.3.579.2. 462 Unknown [id number] 2.16840.1.135590.3.579.2. 462 Unknown [id number] 2.16840.1.453872.3.579.2. 462 Unknown [id number] 2.16.840.1.229098.3.579.2. 462 Unknown [id number] 2.16840.1.169401.3.579.2. 462 Unknown [id number] 2.840.1.216075.3.579.2. 462 Unknown [id number] 2.840.1.327828.3.579.2. 462 Unknown [id number] 2.840.1.405435.3.579.2. 462 Unknown [id number] 2.840.1.785580.3.579.2. 462 Unknown [id number] 2.840.1.755430.3.579.2. 462 Unknown [id number] 2.840.1.082240.3.579.2. 462 Unknown [id number] 2.840.1.192302.3.579.2. 462 Unknown [id number] 2.840.1.769389.3.579.2. 462 Unknown [id number] 2.840.1.223965.3.579.2. 462 Unknown [id number] 2.840.1.672866.3.579.2. 462 Unknown [id number] 2.840.1.373019.3.579.2. 462 Unknown [id number] 2.840.1.671617.3.579.2. 462 Unknown [id number] 2.840.1.083824.3.579.2. 462 Unknown [id number] 2.840.1.687511.3.579.2. 462 Unknown [id number] 2.840.1.979565.3.579.2. 462 Unknown [id number] 2.16.840.1.115417.3.579.2. 462 Unknown [id number] 2.16.840.1.588813.3.579.2. 462 Unknown [id number] 2.16.840.1.359631.3.579.2. 462 Unknown [id number] 2.16.840.1.667624.3.579.2. 462 Unknown [id number] 2.16.840.1.883529.3.579.2. 462 Social History Date Type Detail Facility Start: 06-14-2007 End: 06-26-2024 Tobacco smoking status NHIS Never smoker [facility] Start: 06-14-2007 Alcohol intake Not Asked [facility] Start: 1965 Sex Assigned At Not on file [facility] Start: 07-16-2021 End: 07-17-2023 Tobacco smoking status INIS Unknown if ever smoked [facility] Start: 03-28-2020 None [facility] Start: 03-28-2020 Spouse/ Significant Other [facility] Start: 04-20-2018 Non-smoker [facility] Start: 1965 Sex Assigned At Male [facility] Start: 10-03-2023 Gender identity Identifies as male gender (finding) [facility] Start: 01-06-2024 End: 09-24-2024 Sexual orientation Not on file [facility] Start: 01-06-2024 Tobacco use and exposure Smokeless tobacco non-user [facility] Start: 01-06-2024 End: 05-06-2024 Alcoholic beverage intake Ex-drinker (finding) [facility] Start: 01-06-2024 End: 09-24-2024 History of Social function [facility] Start: 10-03-2023 Sex Male (finding) [facility] Start: 06-26-2024 End: 09-24-2024 Alcoholic beverage intake Lifetime non-drinker (finding) [facility] Work Phone: Start: 05-22-2024 Sexual orientation Heterosexual (finding) [facility] Work Phone: Start: 06-16-2024 End: 08-28-2024 Exposure to SARS-CoV-2 (event) Not sure [facility] How often to you hav e a drink containing alcohol? Never [facility] Work Phone: How many standard drinks containing alcohol do you have on a typical day? Patient does not drink [facility] Work Phone: Medical Equipment Procedure Code Equipment Code Equipment Origin al Text Equipment Identifier Dates Colonoscopy [id number] FDA Start: 03-27-2024 Stent Inlay Opti ma 7fr Taper Chitimacha Green Phreecoat Polymer 28cm [facility] - [id number] Start: 09-06-2015 Pen Needle, Diab etic [...] 5/32 needle Start: 06-01-2021 Device Clsr Mynx board member 5fr chloe - [id number] Start: 05-06-2024 Pen Needle, Diab etic [...] Functional Status Date Assessment Result Facility 09-24-2024 [place] - suicide severity rating scale screener - recent [C-SSRS] [facility] Work Phone: 08-07-2024 Total score [AUDIT-C] 0 08/08/19 2:09 PM Rivka Cagle MA [facility] Work Phone: 04-25-2024 Functional status Ambulates [facility] Work Phone: 04-15-2024 Functional status Ambulates;[facility] Work Phone: 10-03-2023 Functional Status Room check performed [facility] 10-03-2023 Functional Status [facility] 10-03-2023 Functional Status [facility] 10-03-2023 Functional Status bilateral knee high removed/off [facility] 10-02-2023 Functional Status [facility] 10-02-2023 Functional Status Demonstrates C orrect Call Light Use Yes [facility] 10-02-2023 Functional Status [facility] 10-02-2023 Functional Status [facility] 10-02-2023 Functional Status None Jarred Ho spital [facility] 08-03-2022 Functional status Ambulates [facility] Work Phone: 06-20-2021 Functional status Up ad harini [facility] Work Phone: [facility] Work Phone: Mental Status Date Assessment Result Facility 04-25-2024 Cognitive function Voice/Name [facility] Work Phone: 04-15-2024 Cognitive function [facility] Work Phone: 10-03-2023 Mental Status Oriented x 4 [facility] 10-02-2023 Mental Status [facility] 10-02-2023 Mental Status [facility] 02-18-2023 Cognitive function Voice/Name [facility] Work Phone: 08-03-2022 Cognitive function Awake;Alert;A ppropriate;Fo llows Commands;Responds to vocal stimuli [facility] Work Phone: 08-03-2022 Cognitive function Voice/Name [facility] Work Phone: 06-20-2021 Cognitive function Appropriate;Cooperativ e [facility] Work Phone: Clinical Notes 08-02-2022 to 09-24-2024 Discharge InstructionsMopriti Pringle MD - 09/24/2024 7:30 AM EDBilly Pringle MD - 09/24/2024 7:30 AM Gela Padron MD - 08/07/2024 2:30 PM EDTPatient InstructionsPatient Instructions Note Date & Type Note Facility 09-24-2024 Hospital Discharge instructions Dick Nguyen MD - 09/24/2024 9:17 AM EDT [facility] Interventional Pulmonology The anesthetics, sedatives or [...] on weekends: / and ask for the Supervisor Correspondence Section on-call (Pager Number: [phone]) documented in this encounter [facility] Work Phone: 09-24-2024 Attending History and physical [...] Pulmonary, Critical Care, and Sleep Medicine Consultation [address] [facility] Patient was referred by his PCP (Dr. [...] surgery total pulmonary decortication in 2015 at [facility]. He was hospitalized in [place] from 03/02-03/04/2024 for acute hypoxic respiratory failure. [...] Review Audit Reviewed by Heavenly Sparks MA (Human Anatomy Teacher) on 08/28/24 at 1158 Medication Order Taking? Sig Documenting Provider Last Dose Status albuterol 90 mcg/actuation inhaler [id number] INHALE 2 PUFFS BY MOUTH EVERY 4 HOURS NEEDED FOR SHORTNESS OF BREATH OR WHEEZING Historical ProviderMD Active amLODIPine (Norvasc) 5 mg tablet [id number] Take 1 tablet (5 mg) by mouth once daily. Historical ProviderMD Active aspirin 325 mg tablet [id number] Take 1 tablet (325 mg) by mouth once daily. Historical ProviderMD Active atorvastatin (Lipitor) 80 mg tablet [id number] Take 1 tablet (80 mg) by mouth once daily at bedtime. Historical ProviderMD Active betamethasone, augmented, (Diprolene) 0.05 % lotion [id number] APPLY TO RASH ON THE TRUNK OR SCALP 1-2 TIMES DAILY NEEDED Historical ProviderMD Active bismuth subsalicylate (Pepto Bismol) 262 mg chewable tablet [id number] CHEW AND SWALLOW 2 TABLETS BY MOUTH 3 TIMES A DAY for 2 weeks. max 16 tablets per 24 hours Patient not taking: Reported on 08/07/2024 Historical ProviderMD Active Brilinta 90 mg tablet [id number] 1 tablet (90 mg). Historical ProviderMD Active busPIRone (Buspar) 10 mg tablet [id number] Take 1 tablet (10 mg) by mouth 3 times a day. Historical ProviderMD Active clopidogrel (Plavix) 75 mg tablet [id number] Take 1 tablet (75 mg) by mouth early in the morning.. Historical ProviderMD Active dapagliflozin propanediol (Farxiga) 5 mg [id number] Take 1 tablet (5 mg) by mouth once daily. Historical ProviderMD Active Dexcom G6 Sensor device [id number] USE DIRECTED FOR CONTINUOUS BLOOD GLUCOSE MONITORING, CHANGE SENSOR EVERY 10 DAYS Historical ProviderMD Active DULoxetine (Cymbalta) [address] capsule [id number] Take 1 capsule (60 mg) by mouth once daily. Historical ProviderMD Active Eliquis 5 mg tablet [id number] Take 1 tablet (5 mg) by mouth 2 times a day. Historical ProviderMD Active ergocalciferol (Vitamin D-2) 1250 mcg (50,000 units) capsule [id number] Take 1 capsule (1,250 mcg) by mouth. Historical MD Lacey Active fenofibrate (Tricor) 54 mg tablet [id number] Take 1 tablet (54 mg) by mouth once daily. Gloria Rahman MD Active furosemide (Lasix) 40 mg tablet [id number] Take 1 tablet (40 mg) by mouth. Gloria Rahman MD Active glimepiride (Amaryl) 4 mg tablet [id number] Take 1 tablet (4 mg) by mouth early in the morning.. Patient not taking: Reported on 08/07/2024 Gloria Rahman MD Active glipiZIDE (Glucotrol) 5 mg tablet [id number] Take 1 tablet (5 mg) by mouth. Patient not taking: Reported on 08/07/2024 Gloria Rahman MD Active HumuLIN R U-500, Conc, Insulin 500 unit/mL CONCENTRATED injection [id number] INJECT 75 UNITS DAILY VIA CONTINUOUS SUBCUTANEOUS INFUSION. DISCARD VIAL AFTER 40 DAYS Patient not taking: Reported on 08/07/2024 Gloria Rahman MD Active Jardiance 25 mg [id number] Take 1 tablet (25 mg) by mouth once daily. Historical ProviderMD Active levothyroxine (Synthroid, Levoxyl) 112 mcg tablet [id number] Take 1 tablet (112 mcg) by mouth once daily. Gloria ProviderMD Active lisinopril 40 mg tablet [id number] Take 1 tablet (40 mg) by mouth once daily. Historical ProviderMD Active metFORMIN (Glucophage) 500 mg tablet [id number] Take 1 tablet (500 mg) by mouth 2 times daily (morning and late afternoon). Gloria Rahman MD Active metoprolol succinate XL (Toprol-XL) 100 mg 24 hr tablet [id number] TAKE 1 TABLET BY MOUTH DAILY for heart Historical ProviderMD Active Mucinex DM 60-1,200 mg tablet extended release 12 hr [id number] Take 1 tablet by mouth every 12 hours. Gloria Rahman MD Active oxyCODONE-acetaminophen (Percocet) 5-325 mg tablet [id number] Take 1 tablet by mouth 2 times a day as needed. Patient not taking: Reported on 08/07/2024 Gloria Rahman MD Active pantoprazole (ProtoNix) 40 mg EC tablet [id number] Take 1 tablet (40 mg) by mouth. Historical ProviderMD Active potassium citrate CR (Urocit-K-10) 10 mEq ER tablet [id number] Take 1 tablet (10 mEq) by mouth twice a day. Historical ProviderMD Active predniSONE (Deltasone) 20 mg tablet [id number] Take 0.5 tablets (10 mg) by mouth early in the morning.. Historical ProviderMD Active predniSONE (Deltasone) 20 mg tablet [id number] Take 2 tablets (40 mg) by mouth once daily. Patient not taking: Reported on 08/07/2024 Rosalino Padron MD Active predniSONE (Deltasone) 5 mg tablet [id number] Take 4 tablets (20 mg) by mouth once daily for 30 days, THEN 3 tablets (15 mg) once daily for 30 days, THEN 2 tablets (10 mg) once daily for 30 days, THEN 1 tablet (5 mg) once daily for 14 days. Rosalino Padron MD Active spironolactone (Aldactone) 50 mg tablet [id number] Take 1 tablet (50 mg) by mouth once daily. Patient not taking: Reported on 08/07/2024 Historical ProviderMD Active tamsulosin (Flomax) 0.4 mg 24 hr capsule [id number] Take 1 capsule (0.4 mg) by mouth once daily. Historical ProviderMD Active traMADol (Ultram) 50 mg tablet [id number] Take 1 tablet (50 mg) by mouth. [...] Pulmonary, Critical Care, and Sleep Medicine Consultation [address] [facility] Patient was referred by his PCP (Dr. [...] surgery total pulmonary decortication in 2015 at [facility]. He was hospitalized in [place] from 03/02-03/04/2024 for acute hypoxic respiratory failure. [...] Review Audit Reviewed by Heavenly Sparks MA (Human Anatomy Teacher) on 08/28/24 at 1158 Medication Order Taking? Sig Documenting Provider Last Dose Status albuterol 90 mcg/actuation inhaler [id number] INHALE 2 PUFFS BY MOUTH EVERY 4 HOURS NEEDED FOR SHORTNESS OF BREATH OR WHEEZING Historical ProviderMD Active amLODIPine (Norvasc) 5 mg tablet [id number] Take 1 tablet (5 mg) by mouth once daily. Historical ProviderMD Active aspirin 325 mg tablet [id number] Take 1 tablet (325 mg) by mouth once daily. Historical ProviderMD Active atorvastatin (Lipitor) 80 mg tablet [id number] Take 1 tablet (80 mg) by mouth once daily at bedtime. Historical ProviderMD Active betamethasone, augmented, (Diprolene) 0.05 % lotion [id number] APPLY TO RASH ON THE TRUNK OR SCALP 1-2 TIMES DAILY NEEDED Historical ProviderMD Active bismuth subsalicylate (Pepto Bismol) 262 mg chewable tablet [id number] CHEW AND SWALLOW 2 TABLETS BY MOUTH 3 TIMES A DAY for 2 weeks. max 16 tablets per 24 hours Patient not taking: Reported on 08/07/2024 Historical ProviderMD Active Brilinta 90 mg tablet [id number] 1 tablet (90 mg). Historical ProviderMD Active busPIRone (Buspar) 10 mg tablet [id number] Take 1 tablet (10 mg) by mouth 3 times a day. Historical ProviderMD Active clopidogrel (Plavix) 75 mg tablet [id number] Take 1 tablet (75 mg) by mouth early in the morning.. Historical ProviderMD Active dapagliflozin propanediol (Farxiga) 5 mg [id number] Take 1 tablet (5 mg) by mouth once daily. Historical ProviderMD Active Dexcom G6 Sensor device [id number] USE DIRECTED FOR CONTINUOUS BLOOD GLUCOSE MONITORING, CHANGE SENSOR EVERY 10 DAYS Historical ProviderMD Active DULoxetine (Cymbalta) [address] capsule [id number] Take 1 capsule (60 mg) by mouth once daily. Historical ProviderMD Active Eliquis 5 mg tablet [id number] Take 1 tablet (5 mg) by mouth 2 times a day. Historical ProviderMD Active ergocalciferol (Vitamin D-2) 1250 mcg (50,000 units) capsule [id number] Take 1 capsule (1,250 mcg) by mouth. Gloria Rahman MD Active fenofibrate (Tricor) 54 mg tablet [id number] Take 1 tablet (54 mg) by mouth once daily. Gloria Rahman MD Active furosemide (Lasix) 40 mg tablet [id number] Take 1 tablet (40 mg) by mouth. Gloria ProviderMD Active glimepiride (Amaryl) 4 mg tablet [id number] Take 1 tablet (4 mg) by mouth early in the morning.. Patient not taking: Reported on 08/07/2024 Gloria Rahman MD Active glipiZIDE (Glucotrol) 5 mg tablet [id number] Take 1 tablet (5 mg) by mouth. Patient not taking: Reported on 08/07/2024 Gloria Rahman MD Active HumuLIN R U-500, Conc, Insulin 500 unit/mL CONCENTRATED injection [id number] INJECT 75 UNITS DAILY VIA CONTINUOUS SUBCUTANEOUS INFUSION. DISCARD VIAL AFTER 40 DAYS Patient not taking: Reported on 08/07/2024 Gloria Rahman MD Active Jardiance 25 mg [id number] Take 1 tablet (25 mg) by mouth once daily. Historical ProviderMD Active levothyroxine (Synthroid, Levoxyl) 112 mcg tablet [id number] Take 1 tablet (112 mcg) by mouth once daily. Gloria ProviderMD Active lisinopril 40 mg tablet [id number] Take 1 tablet (40 mg) by mouth once daily. Historical ProviderMD Active metFORMIN (Glucophage) 500 mg tablet [id number] Take 1 tablet (500 mg) by mouth 2 times daily (morning and late afternoon). Historical ProviderMD Active metoprolol succinate XL (Toprol-XL) 100 mg 24 hr tablet [id number] TAKE 1 TABLET BY MOUTH DAILY for heart Historical ProviderMD Active Mucinex DM 60-1,200 mg tablet extended release 12 hr [id number] Take 1 tablet by mouth every 12 hours. Gloria Rahman MD Active oxyCODONE-acetaminophen (Percocet) 5-325 mg tablet [id number] Take 1 tablet by mouth 2 times a day as needed. Patient not taking: Reported on 08/07/2024 Gloria Rahman MD Active pantoprazole (ProtoNix) 40 mg EC tablet [id number] Take 1 tablet (40 mg) by mouth. Historical ProviderMD Active potassium citrate CR (Urocit-K-10) 10 mEq ER tablet [id number] Take 1 tablet (10 mEq) by mouth twice a day. Historical ProviderMD Active predniSONE (Deltasone) 20 mg tablet [id number] Take 0.5 tablets (10 mg) by mouth early in the morning.. Historical ProviderMD Active predniSONE (Deltasone) 20 mg tablet [id number] Take 2 tablets (40 mg) by mouth once daily. Patient not taking: Reported on 08/07/2024 Rosalino Padron MD Active predniSONE (Deltasone) 5 mg tablet [id number] Take 4 tablets (20 mg) by mouth once daily for 30 days, THEN 3 tablets (15 mg) once daily for 30 days, THEN 2 tablets (10 mg) once daily for 30 days, THEN 1 tablet (5 mg) once daily for 14 days. Rosalino Padron MD Active spironolactone (Aldactone) 50 mg tablet [id number] Take 1 tablet (50 mg) by mouth once daily. Patient not taking: Reported on 08/07/2024 Historical ProviderMD Active tamsulosin (Flomax) 0.4 mg 24 hr capsule [id number] Take 1 capsule (0.4 mg) by mouth once daily. Historical ProviderMD Active traMADol (Ultram) 50 mg tablet [id number] Take 1 tablet (50 mg) by mouth. [...] Padron MD 08/28/2024 documented in this encounter [facility] Work Phone: 08-13-2024 Radiology Diagnostic study note [facility] 08-07-2024 History of Present illness Narrative Images from the original note were not included. Department of Medicine Division of Pulmonary, Critical Care, and Sleep Medicine Consultation [address] Pulmonary Clinic/[facility] Patient was referred by his PCP (Dr. [...] surgery total pulmonary decortication in 2016 at [facility]. He was hospitalized in [place] from 03/02-03/04/2024 for acute hypoxic respiratory failure. [...] Review Audit Reviewed by Rivka Gerardo MA (Human Anatomy Teacher) on 08/07/24 at 1413 Medication Order Taking? Sig Documenting Provider Last Dose Status albuterol 90 mcg/actuation inhaler [id number] Yes INHALE 2 PUFFS BY MOUTH EVERY 4 HOURS NEEDED FOR SHORTNESS OF BREATH OR WHEEZING Historical ProviderMD Active amLODIPine (Norvasc) 5 mg tablet [id number] Yes Take 1 tablet (5 mg) by mouth once daily. Historical ProviderMD Active aspirin 325 mg tablet [id number] Yes Take 1 tablet (325 mg) by mouth once daily. Historical ProviderMD Active atorvastatin (Lipitor) 80 mg tablet [id number] Yes Take 1 tablet (80 mg) by mouth once daily at bedtime. Historical ProviderMD Active betamethasone, augmented, (Diprolene) 0.05 % lotion [id number] APPLY TO RASH ON THE TRUNK OR SCALP 1-2 TIMES DAILY NEEDED Historical ProviderMD Active bismuth subsalicylate (Pepto Bismol) 262 mg chewable tablet [id number] CHEW AND SWALLOW 2 TABLETS BY MOUTH 3 TIMES A DAY for 2 weeks. max 16 tablets per 24 hours Patient not taking: Reported on 08/07/2024 Historical ProviderMD Active Brilinta 90 mg tablet [id number] Yes 1 tablet (90 mg). Historical ProviderMD Active busPIRone (Buspar) 10 mg tablet [id number] Yes Take 1 tablet (10 mg) by mouth 3 times a day. Historical ProviderMD Active clopidogrel (Plavix) 75 mg tablet [id number] Take 1 tablet (75 mg) by mouth early in the morning.. Historical ProviderMD Active dapagliflozin propanediol (Farxiga) 5 mg [id number] Take 1 tablet (5 mg) by mouth once daily. Historical ProviderMD Active Dexcom G6 Sensor device [id number] Yes USE DIRECTED FOR CONTINUOUS BLOOD GLUCOSE MONITORING, CHANGE SENSOR EVERY 10 DAYS Historical ProviderMD Active DULoxetine (Cymbalta) [address] capsule [id number] Yes Take 1 capsule (60 mg) by mouth once daily. Historical ProviderMD Active Eliquis 5 mg tablet [id number] Yes Take 1 tablet (5 mg) by mouth 2 times a day. Historical ProviderMD Active ergocalciferol (Vitamin D-2) 1250 mcg (50,000 units) capsule [id number] Take 1 capsule (1,250 mcg) by mouth. Historical ProviderMD Active fenofibrate (Tricor) 54 mg tablet [id number] Yes Take 1 tablet (54 mg) by mouth once daily. Historical ProviderMD Active furosemide (Lasix) 40 mg tablet [id number] Yes Take 1 tablet (40 mg) by mouth. Historical ProviderMD Active glimepiride (Amaryl) 4 mg tablet [id number] Take 1 tablet (4 mg) by mouth early in the morning.. Patient not taking: Reported on 08/07/2024 Historical MD Lacey Active glipiZIDE (Glucotrol) 5 mg tablet [id number] Take 1 tablet (5 mg) by mouth. Patient not taking: Reported on 08/07/2024 Historical MD Lacey Active HumuLIN R U-500, Conc, Insulin 500 unit/mL CONCENTRATED injection [id number] INJECT 75 UNITS DAILY VIA CONTINUOUS SUBCUTANEOUS INFUSION. DISCARD VIAL AFTER 40 DAYS Patient not taking: Reported on 08/07/2024 Historical MD Lacey Active Jardiance 25 mg [id number] Yes Take 1 tablet (25 mg) by mouth once daily. Historical ProviderMD Active levothyroxine (Synthroid, Levoxyl) 112 mcg tablet [id number] Yes Take 1 tablet (112 mcg) by mouth once daily. Historical ProviderMD Active lisinopril 40 mg tablet [id number] Yes Take 1 tablet (40 mg) by mouth once daily. Historical ProviderMD Active metFORMIN (Glucophage) 500 mg tablet [id number] Take 1 tablet (500 mg) by mouth 2 times daily (morning and late afternoon). Historical ProviderMD Active metoprolol succinate XL (Toprol-XL) 100 mg 24 hr tablet [id number] Yes TAKE 1 TABLET BY MOUTH DAILY for heart Historical ProviderMD Active Mucinex DM 60-1,200 mg tablet extended release 12 hr [id number] Take 1 tablet by mouth every 12 hours. Historical ProviderMD Active oxyCODONE-acetaminophen (Percocet) 5-325 mg tablet [id number] Take 1 tablet by mouth 2 times a day as needed. Patient not taking: Reported on 08/07/2024 Historical ProviderMD Active pantoprazole (ProtoNix) 40 mg EC tablet [id number] Yes Take 1 tablet (40 mg) by mouth. Historical ProviderMD Active potassium citrate CR (Urocit-K-10) 10 mEq ER tablet [id number] Take 1 tablet (10 mEq) by mouth twice a day. Historical ProviderMD Active predniSONE (Deltasone) 20 mg tablet [id number] Take 0.5 tablets (10 mg) by mouth early in the morning.. Historical ProviderMD Active predniSONE (Deltasone) 20 mg tablet [id number] Take 2 tablets (40 mg) by mouth once daily. Patient not taking: Reported on 08/07/2024 Rosalino Padron MD Active spironolactone (Aldactone) 50 mg tablet [id number] Take 1 tablet (50 mg) by mouth once daily. Patient not taking: Reported on 08/07/2024 Historical MD Lacey Active tamsulosin (Flomax) 0.4 mg 24 hr capsule [id number] Yes Take 1 capsule (0.4 mg) by mouth once daily. Historical ProviderMD Active traMADol (Ultram) 50 mg tablet [id number] Take 1 tablet (50 mg) by mouth. [...] months once above completed Rosalino Padron MD 08/07/2024 documented in this encounter [facility] Work Phone: 08-07-2024 Instructions Rosalino Padron MD [...] clinic time slot For scheduling purposes: Call to schedule a breathing or a walking test Call [phone] to schedule EKG's, Echocardiograms and Cardiopulmonary Stress Tests. Call [phone] to schedule Radiology tests such as Nuclear Medicine Stress Tests, CT Scans, and MRI's. Should you have any questions Please Call our pulmonary nurse Linda Marie at [phone] or my food service assistant Puneet Leone at [phone] documented in this encounter [facility] Work Phone: 06-26-2024 History of Present illness Narrative Images from the original note were not included. Department of Medicine Division of Pulmonary, Critical Care, and Sleep Medicine Consultation [address] Pulmonary Clinic/[facility] Patient was referred by his PCP (Dr. [...] surgery total pulmonary decortication in 2015 at [facility]. He was hospitalized in [place] from 03/02-03/04/2024 for acute hypoxic respiratory failure. [...] Review Audit Reviewed by Suly Johnston MA (Human Anatomy Teacher) on 06/26/24 at 1224 Medication Order Taking? Sig Documenting Provider Last Dose Status albuterol 90 mcg/actuation inhaler [id number] Yes INHALE 2 PUFFS BY MOUTH EVERY 4 HOURS NEEDED FOR SHORTNESS OF BREATH OR WHEEZING Historical ProviderMD Active amLODIPine (Norvasc) 5 mg tablet [id number] Take 1 tablet (5 mg) by mouth once daily. Historical Provider, Active aspirin 325 mg tablet [id number] Take 1 tablet (325 mg) by mouth once daily. Historical Provider, Active atorvastatin (Lipitor) 80 mg tablet [id number] Take 1 tablet (80 mg) by mouth once daily at bedtime. Historical Provider, Active betamethasone, augmented, (Diprolene) 0.05 % lotion [id number] Yes APPLY TO RASH ON THE TRUNK OR SCALP 1-2 TIMES DAILY NEEDED Historical ProviderMD Active bismuth subsalicylate (Pepto Bismol) 262 mg chewable tablet [id number] Yes CHEW AND SWALLOW 2 TABLETS BY MOUTH 3 TIMES A DAY for 2 weeks. max 16 tablets per 24 hours Historical ProviderMD Active Brilinta 90 mg tablet [id number] Yes 1 tablet (90 mg). Historical ProviderMD Active busPIRone (Buspar) 10 mg tablet [id number] Take 1 tablet (10 mg) by mouth 3 times a day. Historical ProviderMD Active clopidogrel (Plavix) 75 mg tablet [id number] Yes Take 1 tablet (75 mg) by mouth early in the morning.. Historical ProviderMD Active dapagliflozin propanediol (Farxiga) 5 mg [id number] Yes Take 1 tablet (5 mg) by mouth once daily. Historical ProviderMD Active [employer] G6 Sensor device [id number] Yes USE DIRECTED FOR CONTINUOUS BLOOD GLUCOSE MONITORING, CHANGE SENSOR EVERY 10 DAYS Historical ProviderMD Active DULoxetine (Cymbalta) [address] capsule [id number] Take 1 capsule (60 mg) by mouth once daily. Historical ProviderMD Active Eliquis 5 mg tablet [id number] Take 1 tablet (5 mg) by mouth 2 times a day. Historical ProviderMD Active ergocalciferol (Vitamin D-2) 1250 mcg (50,000 units) capsule [id number] Yes Take 1 capsule (1,250 mcg) by mouth. Historical ProviderMD Active fenofibrate (Tricor) 54 mg tablet [id number] Take 1 tablet (54 mg) by mouth once daily. Historical ProviderMD Active furosemide (Lasix) 40 mg tablet [id number] Yes Take 1 tablet (40 mg) by mouth. Historical ProviderMD Active glimepiride (Amaryl) 4 mg tablet [id number] Yes Take 1 tablet (4 mg) by mouth early in the morning.. Historical ProviderMD Active glipiZIDE (Glucotrol) 5 mg tablet [id number] Yes Take 1 tablet (5 mg) by mouth. Historical ProviderMD Active HumuLIN R U-500, Conc, Insulin 500 unit/mL CONCENTRATED injection [id number] Yes INJECT 75 UNITS DAILY VIA CONTINUOUS SUBCUTANEOUS INFUSION. DISCARD VIAL AFTER 40 DAYS Historical ProviderMD Active Jardiance 25 mg [id number] Take 1 tablet (25 mg) by mouth once daily. Historical ProviderMD Active levothyroxine (Synthroid, Levoxyl) 112 mcg tablet [id number] Take 1 tablet (112 mcg) by mouth once daily. Historical ProviderMD Active lisinopril 40 mg tablet [id number] Take 1 tablet (40 mg) by mouth once daily. Historical ProviderMD Active metFORMIN (Glucophage) 500 mg tablet [id number] Take 1 tablet (500 mg) by mouth 2 times daily (morning and late afternoon). Historical ProviderMD Active metoprolol succinate XL (Toprol-XL) 100 mg 24 hr tablet [id number] TAKE 1 TABLET BY MOUTH DAILY for heart Historical ProviderMD Active Mucinex DM 60-1,200 mg tablet extended release 12 hr [id number] Yes Take 1 tablet by mouth every 12 hours. Historical ProviderMD Active oxyCODONE-acetaminophen (Percocet) 5-325 mg tablet [id number] Take 1 tablet by mouth 2 times a day as needed. Historical ProviderMD Active pantoprazole (ProtoNix) 40 mg EC tablet [id number] Yes Take 1 tablet (40 mg) by mouth. Historical ProviderMD Active potassium citrate CR (Urocit-K-10) 10 mEq ER tablet [id number] Yes Take 1 tablet (10 mEq) by mouth twice a day. Historical ProviderMD Active predniSONE (Deltasone) 20 mg tablet [id number] Yes Take 0.5 tablets (10 mg) by mouth early in the morning.. Historical ProviderMD Active spironolactone (Aldactone) 50 mg tablet [id number] Yes Take 1 tablet (50 mg) by mouth once daily. Historical ProviderMD Active tamsulosin (Flomax) 0.4 mg 24 hr capsule [id number] Take 1 capsule (0.4 mg) by mouth once daily. Historical ProviderMD Active traMADol (Ultram) 50 mg tablet [id number] Yes Take 1 tablet (50 mg) by [...] ab panel ordered on 06/26/2024. -will discuss [place] on follow up. -Discussed antifibrotic therapy. Not [...] Padron MD 06/26/2024 documented in this encounter [facility] Work Phone: 06-26-2024 Instructions Rosalino Padron MD [...] mold. You can contact BRITTANIE Garcia in [place], phone number is [phone] for a home inspection We will see you back in clinic in 1-2 months/weeks For scheduling purposes: Call to schedule a breathing or a walking test Call [phone] to schedule EKG's, Echocardiograms and Cardiopulmonary Stress Tests. Call [phone] to schedule Radiology tests such as Nuclear Medicine Stress Tests, CT Scans, and MRI's. Should you have any questions Please Call our pulmonary nurse Linda Marie at [phone] or my food service assistant Puneet Leone at [phone] documented in this encounter [facility] Work Phone: 05-21-2024 Evaluation note Diagnosis Onset [...] 2024 11:16am Fatigue noneactive September 15 12:53pm [facility] Work Phone: [phone] Telephone encounter Note* Telephone Encounter - Oziel [...] 1 year. Sooner prn. MD Jose Antonio Oxigene Work Phone: [phone] Miscellaneous Notes* Telephone Encounter - Oziel Culp [...] Sooner prstan Culp MD documented in this [facility]05[facility] Note* Perioperative Nursing Note - Mendel River RN - 05/06/2024 4:02 PM EST Phase 2 care completed. Iv removed and dc instructions provided. Will dc to home with family Right groin site benign and neuro unchanged [id number] Note* Perioperative Nursing Note - Mendel River RN - 05/06/2024 4:02 PM EST Phase 2 care completed. Iv removed and dc instructions provided. Will dc to home with family Right groin site benign and neuro unchanged [facility] 0 [id number] Miscellaneous Notes* Perioperative Nursing Note - Mendel River RN - 05/06/2024 4:02 PM EST Phase 2 care completed. Iv removed and dc instructions provided. Will dc to home with family Right groin site benign and neuro unchanged [facility] 0 documented in this [facility]02-05-2025 NotePatient: Krunal Leos Procedure Summary Date: 05/06/24 Room / Location: [facility] Special Procedures Anesthesia Start: 124 Anesthesia Stop: [...] discharged once all PACU criteria has been met.[facility] [id number] NotePatient: Krunal Leos Procedure Summary Date: 05/06/24 Room / Location: [facility] Special Procedures Anesthesia Start: 1243 Anesthesia Stop: [...] Allowed opportunity for questions and acknowledgement of understanding.[facility]02-05-2025 Nurse Note* Se Hensley RN - 05/06/2024 1:47 PM EST Patient arrived from home, Dr. Culp in to speak with the patient regarding DCA with possible carotid stenting, consent obtained. Patient was placed supine on exam table prepped and draped in sterile fashion. Telemetry monitors placed, sedation provided by FREIGHT TALLIER. Patient tolerated procedure well. Transfer to ICU. [id number] Nurse Note* Se Hensley RN - 05/06/2024 1:47 PM EST Patient arrived from home, Dr. Culp in to speak with the patient regarding DCA with possible carotid stenting, consent obtained. Patient was placed supine on exam table prepped and draped in sterile fashion. Telemetry monitors placed, sedation provided by FREIGHT TALLIER. Patient tolerated procedure well. Transfer to ICU. * Se Hensley RN - 05/05/2024 1:45 PM EST Report given to IR rn, neuro assessment completed along with groin site check. documented in this [facility]02-05-2025 Consult note* Rianna Yan MD - 05/06/2024 [...] PLAN: 1. Obtain P2 Y12 study 2. Steger Brilinta 90 mg twice daily x 30 [...] 10 to 15 minutes. Was hospitalized at [place] and had Plavix added at that time. [...] Symptoms resolved. He was again hospitalized at [facility]. No medicationchanges were made. April 2024: Recurrent [...] care Cc: Mey Loya APRN - * [employer] Phone: [phone]) 745-664802-05-2025 Consult note* Rianna Yan MD - 05/06/2024 [...] PLAN: 1. Obtain P2 Y12 study 2. Steger Brilinta 90 mg twice daily x 30 [...] 10 to 15 minutes. Was hospitalized at [place] and had Plavix added at that time. [...] Symptoms resolved. He was again hospitalized at [facility]. No medicationchanges were made. April 2024: Recurrent [...] Loya APRN - * documented in this [facility]02-05[facility]2025 NoteIVR History & Physical Inpatient consult to Anesthesiology-- Consult performed by: DEJUAN Leal CNP Consult ordered by: DEJUAN Mak CNP Name: Krunal Leos : 1965 (Age-58 y.o.) Date of Service: Pt seen/examined on 05/06/2024 Procedure Information Date/Time: 05/06/24 1000 Procedure: IR ANGIOGRAM CEREBRAL W POSSIBLE INTERVENTION Location: [facility] Special Procedures Chief Complaint: Carotid stenosis History [...] for gait problem. Skin (more content not included)...[facility]02-05-2025 Note Patient: Krunal Leos Procedure Information Date/Time: [...] Past Medical History: No date: A-fib (CMS/HCC) ([facility]) No date: Bilateral carotid artery stenosis No date: BPH (benign prostatic hyperplasia) No date: CHF (congestive heart failure) ([facility]) No date: Chronic idiopathic pulmonary fibrosis ([facility]) No date: CVA (cerebral vascular accident) ([facility]) No date: DM (diabetes mellitus), type 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 [facility] [id number] History of Present illness Narrative* Suzy Jauregui [...] (Dexcom G6 Sensor) mis Dexcom G6 Sensor [facility], USE DIRECTED FOR CONTINUOUS BLOOD GLUCOSE MONITORING, [...] Stallworth MD ergocalciferol (Vitamin D2) 1.25 MG (44373 UT) capsule Take 1 capsule by mouth [...] 2023. 10/06/23 01/06/24 Harmeet Stallworth MD HYDROcodone-acetaminophen (Jordan) 5-325 MG tablet Take 1 tablet by [...] prior imaging and most recent CT from [facility]) and not his right carotid artery. It [...] Jauregui MD Vascular Surgery documented in this [facility]01-25-2025 [facility]01-23-2025 Note* Care Coordination - Coreen Clifton RN [...] Main Entrance which islocated at [address] onto [facility] from [facility]. You may use [employer]. Each patient to receive one validation ticket for [employer]. It is also possible to park in the Main Parking Garage. Proceed to bridge into hospital and check in with Same Day Surgery. [facility] [id number] NoteSpoke with patient. Reviewed instructions for procedure. [...] Street. Turn onto [address] from [address]. You may use [employer]. Each patient to receive one validation ticket for [employer]. It is also possible to park in the Main Parking Garage. Proceed to bridge into hospital and check in with Same Day Surgery.[facility]01-23[facility]2025 Miscellaneous Notes* Care Coordination - Coreen Clifton [...] Street. Turn onto [address] from [facility] [address]. You may use [employer]. Each patient to receive one validation ticket for [employer]. It is also possible to park in the Main Parking Garage. Proceed to bridge into hospital and check in with Same Day Surgery. documented in this [facility]01-22-2025 Evaluation note* Diagnosis Onset Date Resolution Status [...] 2:27pm Hyperlipidemia acute August 17, 2024 11:16am [facility] Work Phone: 1(346) 285-322201-16-2025 Evaluation note* Diagnosis Onset Date Resolution Status Admit Date CKD (chronic kidney disease) chronic April 16, 2024 9:21am Diabetes chronic April 16, 2024 9:21am Essential (primary) hypertension chronic April 16 9:21am Hypothyroidism chronic April 162024 9:21am Insulin pump titration [facility]2024 9:21am Obesity chronic April 16, 2024 [...] 1:22pm Fatigue noneactive August 06, 2024 2:27pm [facility] Work Phone: 1(146) 648-671201-15-2025 [facility]01-12-2025 Evaluation note* Diagnosis Onset Date Resolution Status [...] April 162024 9:21am Insulin pump titration chronic [facility] 2024 9:21am Obesity chronic April 16, 2024 [...] 1:22pm Fatigue noneactive August 06, 2024 2:27pm [facility] [employer] Work Phone: 1(839) 321-414212-27-2024 [facility]12-04-2024 [facility]11-13-2024 Telephone encounter Note* Telephone Encounter - DEJUAN [...] we will determine when to resume Eliquis. [employer] Work Phone: 1(966) 554-167311-13-2024 Miscellaneous Notes* Telephone Encounter - DEJUAN Mak [...] Name of caller: Megan Contact phone number: [phone] Relationship to Patient: care team amanda Provider: Jose Antonio Practice: Endovascular Chief Complaint/Reason for Call: please send all lab work from September to fax [phone] [facility] Best time of day caller can be reached: any Patient advised that office/PCP has 24-48 business hours to return their call: No documented in this [facility]11-13-2024 Miscellaneous Notes* Telephone Encounter - DEJUAN Mak CNP - 02/12/2024 10:29 AM EST Notes and imaging reviewed with Dr. Culp. The left internal carotid artery has approximately 80% stenosis of the left internal carotid artery. [facility] [...] Name of caller: Megan Contact phone number: [phone] Relationship to Patient: care team amanda Provider: Jose Antonio Practice: Endovascular Chief Complaint/Reason for Call: please send all lab work from September to fax [phone] [facility] Best time of day caller can be reached: any Patient advised that office/PCP has 24-48 business hours to return their call: No documented in this [facility]11-13-2024 Telephone encounter Note* Telephone Encounter - Lisa Sandoval - 02/12/2024 9:13 AM EST This patient left a voicemail returning a call regarding his test results with Dr. Hutton Please advise:) [facility] CenterDgfrvp52-82-7691 Telephone encounter Note* Telephone Encounter - nEa Enriquez - 02/06/2024 7:52 AM EST Name of caller: Megan Contact phone number: [phone] Relationship to Patient: care team amanda Provider: Jose Antonio Practice: Endovascular Chief Complaint/Reason for Call: please send all lab work from September to fax [phone] [facility] Best time of day caller can be reached: any Patient advised that office/PCP has 24-48 business hours to return their call: No [facility] CenterPblgro13-36-8892 [facility]10-07-2024 History of Present illness Narrative* Oziel Culp MD - 01/06/2024 11:00 AM EDT History of Present Illness: 58 yo man here for fu stroke and bilateral ICA stenosis. He originally presented 09/2023 for left hemiparesis and was transferred to [facility] from [facility]. He was found to have right [...] episode of left hemiparesis. He went to [facility] and was found to have increased stroke burden of the right hemisphere. Vascular surgery wasconsulted and no surgical procedure was recommended. He had a 3rd event of left hemiparesis the following week and a CT was done at [place] [facility]. At that time clopidogrel was added (in addition to ASA and Eliquis). The patient returned to normal and was discharged from the ED to home. 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 He is anonsmoker. He does report [...] 2023., Disp: 30 tablet, Rfl: 0 HYDROcodone-acetaminophen (Jordan) 5-325 MG tablet, Take 1 tablet by [...] , Rfl: ergocalciferol (Vitamin D2) 1.25 MG (44249 UT) capsule, Take 1 capsule by mouth [...] and clopidogrel I have requested images from [facility] to evaluate distribution of new ischemic [...] Smoking cessation counseling: Yes documented in this [facility]08-15-2024 [facility]07-06-2024 Plan of care note* Care Plan - [...] address these barriers include . Patient discharged. [facility] CenterMmpafe03-69-4478 Miscellaneous Notes* Care Plan - Dariana Lawrence [...] Limits Permission given to speak with patient help desk representative/caregiver as indicated: Confirmation of Payer with patient/family: Yes Payer Name: [employer] [place] [employer]: No Confirmation of Primary Care Physician: Confirmed [...] 0 x 3. He was transferred from [facility] with CVA/TIA. Vascular and Neurology have been consulted. Needs carotid US. Anticipate home with no needs when stable.. . Gris Keith RN documented in this encounterSTri[facility] HospitalEjtnkb72-42-6021 Nurse Note* Dariana Lawrence RN - 10/05/2023 2:38 PM EDT Patient discharged at this time. Patient alert and oriented, reviewed discharge instructions with patient and daughter. PIV removed, tele removed. [facility] CenterInyxky32-86-8795 Nurse Note* Dariana Lawrence RN - 10/05/2023 2:38 PM EDT Patient discharged at this time. Patient alert and oriented, reviewed discharge instructions with patient and daughter. PIV removed, tele removed. * Dalila Helms RN - 10/03/2023 7:30 PM EDT Pt arrived from [facility], ambulated to bed, NIH scale 1, pt A&O x 4, denies numbness ortingling, denies headache or dizziness, denies needs at this time, call light and belongings withinreach, will monitor. documented in this [facility]07-06-2024 NoteDischarge Summary Krunal Leos : 1965 ADMIT [...] a few days ago was admitted to [facility] after he had left facial weakness [...] level of the V3 extending beyond the xdyzl-pp-gjba with reconstitution. Atherosclerosis of the cavernous and [...] sodium chloride, sodium chlor (more content not included)...[facility] 10-05-2023 Hospital course Narrative* Harmeet Stallworth MD [...] a few days ago was admitted to [facility] after he had left facial weakness [...] level of the V3 extending beyond the tbvkd-sz-empy with reconstitution. Atherosclerosis of the cavernous and [...] Complexity: follow up within 7-14 calendar days (67435) [] Severe Complexity: follow up within 7 calendar days (94385) FOLLOW UP TESTING, PENDING RESULTS OR REFERRALS AT TRANSITIONAL CARE VISIT: [] Yes [] No PENDING STUDIES: DISPOSITION: Home FACILITY/HOME CARE AGENCY NAME: Follow up with Suzy Jauregui MD [address] [facility] [address] Call Call your surgeon in 2 days & schedule follow-up, as needed or follow-up for ultrasound survaliance Oziel Culp MD [address] [facility] [address] Schedule an appointment as soon as possible for a visit in 1 week(s) Pamela Morris MD [address] [facility] [facility] [address] Schedule an appointment as soon as possible for a visit in 1 week(s) Radha Khan [address] [facility] [facility] [address] [facility] [address] Schedule an appointment as soon [...] MD 10/05/2023, 1:36 PM documented in this [facility]07-06-2024 NoteHospitalist Progress Note 10/05/2023 Subjective: Admit Date: 10/03/2023 PCP: RADHA KHAN Room#: W4-435/W4-435 A Brief Hospital course: Krunal Leos is a 58 y.o. male presenting with dizziness over the past 3 years however became more severe and more frequent a few days ago was admitted to [facility] after he had left facial weakness [...] level of the V3 extending beyond the neote-uj-hhye with reconstitution. Atherosclerosis of the cavernous and [...] not previously counted (eac (more content not included)...[facility]07-06-2024 History of Present illness Narrative* Harmeet Stallworth MD - 10/05/2023 10:16 AM EDT Hospitalist Progress Note 10/05/2023 Subjective: Admit Date: 10/03/2023 PCP: RADHA KHAN Room#: W4435/W4-897 A Brief Hospital course: Krunal Leos is a 58 y.o. male presenting with dizziness over the past 3 years however became more severe and more frequent a few days ago was admitted to [facility] after he had left facial weakness [...] level of the V3 extending beyond the oykhm-mr-flio with reconstitution. Atherosclerosis of the cavernous and [...] Contact: Tia Leos Relation: Spouse Preferred language: Luxembourger Residential Team Leader needed? No Secondary Emergency Contact: Clarisse Chris Mobile Relation: Daughter Preferred language: Luxembour[place] Residential Team Leader needed? No Harmeet Stallworth MD Division of Hospitalist Medicine Inpatient Medical Services/[facility] * Brenna Carrion - 10/05/2023 8:22 AM EDT Nutrition rescreen completed. Chart reviewed. Patient to be monitored and followed by the diet pharmacy order entry technician. Dietitian available upon request. * Fran Lewis PT - 10/04/2023 9:32 AM EDT Images from the original note were not included. PHYSICAL THERAPY [facility] Initial Evaluation Name/MRN: Krunal Leos ([id number]) Evaluation Date: 10/04/2023 Date of : 1965 Admission Date: 10/03/2023 7:30 PM Age: 58 y.o. Room/Bed: [facility] A Discharge Recommendation: Home independently Equipment Needed: [...] , dtr, son-in-law. Two step entry to [employer] home. Pt drives, works at [employer]. Son-in-law mows lawn and often orders groceries [...] of Care supervision is transferred to a [facility] Therapy Services Physical Therapist. Goals and/or treatment plan was established in collaboration with patient/family/other representatives. * Harmeet Stallworth MD - 10/04/2023 8:22 AM EDT Hospitalist Progress Note 10/04/2023 Subjective: Admit Date: 10/03/2023 PCP: RADHA KHAN Room#: W4-435/W4-435 A Brief Hospital course: Krunal Leos is a 58 y.o. male presenting with dizziness over the past 3 years however became more severe and more frequent a few days ago was admitted to [facility] after he had left facial weakness [...] level of the V3 extending beyond the xaege-mt-ehhs with reconstitution. Atherosclerosis of the cavernous and [...] Contact: Tia Leos Relation: Spouse Preferred language: Luxembour[place] Residential Team Leader needed? No Secondary Emergency Contact: Clarisse Chris [employer] Relation: Daughter Preferred language: Luxem[place] Residential Team Leader needed? No Harmeet Stallworth MD Division of Hospitalist Medicine Inpatient Medical Services/[facility] documented in this encounterSTriHealth McCull[facility]-Hyde Memorial HospitalFpkzdt18-45-0182 Plan of care note* Care Plan - [...] to address these barriers include reorient frequently. [facility] CenterZrzgud84-76-1403 Hospital Discharge instructions* Discharge Instructions* Nely Lambert [...] and the need for follow-up with a physician/ENDS BREAKAGE CLERK/PA after discharge. NELY LAMBERT RN on 10/04/23 [...] through Care Everywhere. * Recovery After Stroke (Luxembourger) * Caring for a Loved One After a Stroke (Luxembourger) * Stroke (Luxembourger) documented in this [facility]07-05-2024 Note* Care Coordination - Gris Keith RN - 10/04/2023 11:19 AM EDT Care Managment Initial Assessment Date: 10/04/2023 Patient Name: Krunal Leos : 1965 Patient Information Source of Information: Patient Cognition/Language: WFL - Within Functional Limits Permission given to speak with patient help desk representative/caregiver as indicated: Confirmation of Payer with patient/family: Yes Payer Name: [employer] [place] : No Confirmation of Primary Care Physician: [...] 0 x 3. He was transferred from [facility] with CVA/TIA. Vascular and Neurology have been consulted. Needs carotid US. Anticipate home with no needs when stable.. . Gris Keith RN [id number] Note* Care Coordination - Gris Keith RN - 10/04/2023 11:19 AM EDT Care Managment Initial Assessment Date: 10/04/2023 Patient Name: Krunal Leos : 1965 Patient Information Source of Information: Patient Cognition/Language: WFL - Within Functional Limits Permission given to speak with patient help desk representative/caregiver as indicated: Confirmation of Payer with patient/family: Yes Payer Name: [employer] [place] [employer]: No Confirmation of Primary Care Physician: Confirmed [...] 0 x 3. He was transferred from [facility] with CVA/TIA. Vascular and Neurology have been consulted. Needs carotid US. Anticipate home with no needs when stable.. . Gris Keith RN [facility]07-05-2024 Consult note* Oziel Culp MD - 10/04/2023 10:09 AM EDTAssociated Order(s): Inpatient consult to Endovascular Neurology-- Inpatient consult to Endovascular Neurology-- Consult performed by: Mey Loya APRN - [facility] Consult ordered by: Raphael Stone MD Reason for consult: vertebbral artery occlusion/ stenosis History Of Present Illness Krunal Leos is a 58 y.o. male presenting with left face and hand weakness in setting of chronic dizziness. Pt does have history of atrial fibrillation on Eliquis. Pt reports roasterman episodic room spinning with diaphoresis that lasts [...] and symmetric in all four extremities. Coordination Iumwci-ic-aece, rapid alternating movements and bmnk-ip-ninc normal bilaterally without dysmetria. Awake and alert [...] Team, ., . Personal review of: Imaging,Labs,ECHO},.},. [employer] Phone: 1(246) 100-730807-05-2024 Consult note* Oziel Culp MD - 10/04/2023 10:09 AM EDTAssociated Order(s): Inpatient consult to Endovascular Neurology-- Inpatient consult to Endovascular Neurology-- Consult performed by: Mey Loya APRN - [facility] Consult ordered by: Raphael Stone MD Reason for consult: vertebbral artery occlusion/ stenosis History Of Present Illness Krunal Leos is a 58 y.o. male presenting with left face and hand weakness in setting of chronic dizziness. Pt does have history of atrial fibrillation on Eliquis. Pt reports detention episodic room spinning with diaphoresis that lasts [...] and symmetric in all four extremities. Coordination Qburzl-ta-limk, rapid alternating movements and qfrz-fo-gpym normal bilaterally without dysmetria. Awake and alert [...] Name: Krunal Leos Patient : 1965 Acct: [id number] Date of Admission: 10/03/2023 Room/Bed: [facility] A PCP: RADHA KHAN History of Present Ilness: 58 y.o. is man with the chief Complaint of: transferred from [facility] evaluation of severe cerebrovascular disease presenting with [...] 40 abd NS at 50 BP med [facility] Patient feeling much better not active complaints [...] reflex present -X Palate:intact -XI Shoulder shrug: {INTACT/ABNORMAL:[id number]::intactNormal -XII Tongue movement: Normal Funduscopic Exam: normal, [...] 401 ms QTC Interval 453 ms P Pierpont 12 degrees QRS Pierpont -16 degrees T Wave [place] 16 degrees MN Interval 160 ms POCT glucose meter Collection [...] the left vertebral artery MRI brain from [facility] review ASSESSMENT / PLAN / SUGGESTIONS : [...] of Eliquis last night - follow [facility] service evaluation - further plans to follow [...] agreeable to the plan. documented in this [facility]07-05-2024 NotePHYSICAL THERAPY [facility] Initial Evaluation Name/MRN: Krunal Leos ([id number]) Evaluation Date: 10/04/2023 Date of : 1965 Admission Date: 10/03/2023 7:30 PM Age: 58 y.o. Room/Bed: [facility] A Discharge Recommendation: Home independently Equipment Needed: [...] , dtr, son-in-law. Two step entry to [employer] home. Pt drives, works at [employer]. Son-in-law mows lawn and often orders groceries [...] of Care supervision is transferred to a [facility] Therapy Services Physical Therapist. Goals and/or treatment plan was established in collaboration with patient/family/other representatives.[facility]07-05-2024 Consult note* Pili Connolly MD - 10/04/2023 8:31 AM EDT Associated Order(s): IP CONSULT TO NEUROLOGY; IP CONSULT TO STROKE TEAM Images from the original note were not included. INITIAL CONSULT NOTE. STROKE SERVICE Patient Name: Krunal Leos Patient : 1965 Acct: [id number] Date of Admission: 10/03/2023 Room/Bed: [facility] A PCP: RADHA KHAN History of Present Ilness: 58 y.o. is man with the chief Complaint of: transferred from [facility] evaluation of severe cerebrovascular disease presenting with [...] 5 mg, 5 mg, Oral, [facility], Michael Rico MD, 5 mg at 10/04/23 0555 glucagon (human recombinant) injection 1 mg, 1 mg, IntraMUSCular, PRN, Michael Rico MD glucose oral gel 15 g, 15 g, Oral, PRN, Michael iRco MD insulin regular (HumuLIN R,NovoLIN R) injection 20 Units, 20 Units, SubCUTAneous, TID WC, Michael Rico MD labetalol (Normodyne,Trandate) injection 10 mg, 10 mg, IntraVENous, q10 min PRN, Michael Rico MD levothyroxine (Synthroid, Levoxyl) tablet 112 mcg, 112 mcg, Oral, [facility], Michael Rico MD, 112mcg at 10/04/23 0555 [...] reflex present -X Palate:intact -XI Shoulder shrug: {INTACT/ABNORMAL:[id number]::intactNormal -XII Tongue movement: Normal Funduscopic Exam: normal, [...] 401 ms QTC Interval 453 ms P [place] 12 degrees QRS [place] -16 degrees T Wave [place] 16 degrees MN Interval 160 ms POCT glucose meter Collection [...] the left vertebral artery MRI brain from [facility] review ASSESSMENT / PLAN / SUGGESTIONS : [...] to be involved in this patient's care. [employer] Phone: 1(710) 239-562607-05-2024 NoteHospitalist Progress Note 10/04/2023 Subjective: Admit Date: 10/03/2023 PCP: RADHA KHAN Room#: W4-435/W4435 A Brief Hospital course: Krunal Leos is a 58 y.o. male presenting with dizziness over the past 3 years however became more severe and more frequent a few days ago was admitted to [facility] after he had left facial weakness [...] level of the V3 extending beyond the ljnas-zg-wreg with reconstitution. Atherosclerosis of the cavernous and [...] carotids -Neurology consultation -En (more content not included)...[facility]07-05-2024 Consult note * Karol Melissa MD - [...] of Eliquis last night - follow [facility] evaluation - further plans to follow [...] and he is agreeable to the plan. [facility] CenterIuthmf46-70-2506 History and physical note* Michael Rico MD - 10/03/2023 9:26 PM EDT History Of Present Illness Krunal Leos is a 58 y.o. male presenting with dizziness over the past 3 years however became more severe and more frequent a few days ago was admitted to [facility] after he had left facial weakness [...] level of the V3 extending beyond the naicr-kj-whmq with reconstitution. Atherosclerosis of the cavernous and [...] consultation 3. Continue to monitor glycemic status. [employer] Work Phone: 1(618) 221-986307-04-2024 NoteHistory Of Present Illness Krunal Leos is a 58 y.o. male presenting with dizziness over the past 3 years however became more severe and more frequent a few days ago was admitted to [facility] after he had left facial weakness [...] level of the V3 extending beyond the trafz-kq-xbwc with reconstitution. Atherosclerosis of the cavernous and [...] Neurology consultation 3. Continue to monitor glycemic status.[facility]07-04-2024 History and physical note* Michael Rico MD - 10/03/2023 9:26 PM EDT History Of Present Illness Krunal Leos is a 58 y.o. male presenting with dizziness over the past 3 years however became more severe and more frequent a few days ago was admitted to [facility] after he had left facial weakness [...] level of the V3 extending beyond the jnvvp-tj-lqda with reconstitution. Atherosclerosis of the cavernous and [...] to monitor glycemic status. documented in this [facility]07-04-2024 Nurse Note* Dalila Helms RN - 10/03/2023 7:30 PM EDT Pt arrived from [facility], ambulated to bed, NIH scale 1, pt A&O x 4, denies numbness ortingling, denies headache or dizziness, denies needs at this time, call light and belongings [facility], will monitor. [facility] CenterLkiayz93-97-3354 Note Discharge Instructions Thank you for allowing [facility] to assist you with your healthcare needs. [...] to receive it can visit one of [facility] vaccine clinics. There are many vaccine clinic locations within the [facility]. For locations and available times, please visit [email or web address].[email or web address] It is important to note that some COVID mobile vaccine clinics are held outdoors and may be canceled in rainy or stormy conditions. To learn more about pediatric vaccinations (ages 5-11), we invite you to visit the [facility] webpage. [email or web address]/[email or web address] [email or web address].htmlTo learn more about the COVID-19 vaccine, we invite you to visit the CDC website for a list of frequently asked questions.https://www.cdc.gov/coronavirus/2019-ncov/vaccines/faq.html [employer] Patient Portal Access Instructions: Stay connected with your healthcare team and access your personal medical information anytime with the [employer] Patient Portal. Please follow the directions below to create your [employer] account: 1.Access the email account you provided upon registration to the hospital/physician office.2.Look for an invitation email from [facility].3.Open the email and access the invitation link: AcceptInvitation to [employer].4.Fill in the required goldberg to create your account. To access your account, visit [email or web address]. Click the blue button labeled Access Patient [...] who you will allowto register on the [employer] Patient Portal for access to your information. You can also access the [employer] Patient Portal on the [employer] collin. Simply click on Patient Portal and then log into your account. If you would like to receive a full copy of your medical records, please contact the [facility] Medical Records Department by calling [phone], Saturday through Saturday between 8 a.m. and [...] Call your local pharmacy or go to [email or web address] [employer]/[id number] to find one close to you.3.Make use of household items: Use cat litter or old coffee grounds to dispose medications if other options arenot available. Mix your drugs with these household products, seal them in an airtight container andthrow it into the garbage. Call [facility]: [phone] to be sure your drugs can be [...] that I should contact my do ctor. Patient/Clinical Operations Specialist Signature: Date/Time: Relationship to Patient: Witness Name/Signature: Date/Time: [facility]07-04-2024 Note Date of Service 10/03/23 Chief Complaint CVA Subjective 58-year-old male with past medical history significant for paroxysmal atrial fibrillation anticoagulated with apixaban, HTN, HLD, type 2 diabetes mellitus, hypothyroidism, KIANNA noncompliant with CPAP,HFpEF, chronic hypoxic respiratory failure, GERD, carotid stenosis, NSTEMI, Hodgkin's disease. Patient presented to [facility] emergency department on 10/01/2023 with increased weakness, [...] vertebral artery from the origin to the [id number]. Moderate stenosis of bilateral internal carotid arteries [...] Dobbs, vascular surgeon, who recommended transfer to [facility] for vascular surgery evaluation. [facility] transfer line called. Imaging reports [...] by DOMINIC FLEMING on 10/03/2023 04:22 PM [facility]07-03-2024 Note ORIGINAL EXAMINATION: CTA OF THE HEAD [...] Sign Date: 10/03/2023 10:41:49 AM Ordering Provider: [facility]07-03-2024 Note ORIGINAL EXAMINATION: CTA OF THE [...] Date: 10/03/2023 10:41:06 AM [facility]* Exam Date Time Procedure Performing Provider Status 10/02/23 2:41 PM Echocardiogram, Adul t with Bubble Study- Auth (Verified) [facility] 07-03-2024 Nurse Progress note ABDULLAHI AGUIRRE APRN, CNP CONSULTED STEM FOR NEURO CONSULT 1319. ER REGISTRATION NOTIFIED. Digitally Signed by Nelly Marsh RN on 10/02/2023 01:28 PM [facility]07-03-2024 Evaluation + Plan noteExtracted from: Title:History and [...] collaborating with physician, and documenting in chart. [facility] 07-03-2024 Nurse Progress note ABDULLAHI AGUIRRE APRN, CNP CONSULTED STEM FOR NEURO CONSULT 1319. ER REGISTRATION NOTIFIED. Digitally Signed by Nelly Marsh RN on 10/02/2023 01:28 PM [facility]07-03-2024 Note Date of Service 10/02/2023 Chief Complaint [...] type 2 diabetes and hypothyroidism, presented to [facility] emergency department with the chief complaint of [...] by ABDULLAHI AGUIRRE on 10/02/2023 12:50 PM [facility]07-03-2024 Note ORIGINAL HISTORY: TIA COMPARISON: Head CT [...] Date: 10/02/2023 8:38:30 AM Ordering Provider: [facility] Note ADDENDUM ADDENDUM: I agree with [...] Sign Date: 10/01/2023 11:46:49 PM Ordering Provider: [place] [address]-02-2024 Note ORIGINAL EXAMINATION: ONE XRAY VIEW OF [...] Date: 10/01/2023 9:13:56 PM [facility]ing [facility] Note Sinus rhythm Atrial premature complexes Left ventricular hypertrophy Inferior infarct, old EKG interpretation is noted and agreed to in [employer]. The interpretation of this patient's EKG contributed directly to the care and management of this patient. Electronic Signature: TITA PARISH DO 10/01/2023 20:51:[address] [place] [address] 12-15-2023 Procedure [facility] 02-18-2023 Procedure [facility]05-05-[address] Ospina [facility] August 03, 2022 10:12am Note Date/Time August 03, 2022 10:12a m [facility] Medical Records Department [address] [place] [address] Discharge Summary 08/03/22 1011 MR#: [id number] Acct: [id number] Name: KRUNAL LEOS Rep #:[id number] : 1965 56 From: Eduin Ospina MD PCP: Dr. Radha Khan MD Status:ADM TALIB Location: [place] [address] Providers Date of Admission: 08/01/22 Date of [...] PO DAILY@0800 03/30/20 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 meter,continuous (Dexcom G6 Instrument Technologist) #1 ea 07/26/20 pen needle, diabetic 31 gauge x 5/16 #1,200 ea 12/22/20 pen needle, diabetic 32 gauge x 5/32 (BD Ultra-Fine Kiki Pen Needle) #150 ea 06/01/21 atorvastatin 80 mg tablet (Lipitor) 80 mg PO QHS cholesterol 09/04/21 metoprolol succinate 100 mg tablet,extended release 24 hr 100 mg PO DAILY #90 tabs 12/08/21 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 sensor ([employer] G6 Sensor device) #3 ea 12/29/21 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 [...] Discharge Orders/Prescriptions Prescriptions: Continued (DME) Dexcom G6 Instrument Technologist Misc See Rx Instructions .ROUTE .MEDSUPPLY Qty: [...] Self Care Charges/Coding Visit Charges Inpatient E&M: 92374 Disch Hosp >30min 08/03/22 1012 <Electronically signed by Eduin Ospina MD> Cosigner Signature (if applicable): CC: Dr. Radha Khan MD; Dr. Eduin Ospina MD~ Signed [facility] Work Phone: 1(784) 538-810305-05-[address] Ospina [facility] August 03, 2022 10:11am Note Date/Time August 03, 2022 7:37am [facility] Medical Records Department [address] [place] [address] Progress Note - Hospitalist 08/03/22 0737 MR#: [id number] Acct: [id number] Name: DAFNEKRUNAL CAR Rep #:[id number] : 1965 56 From: Eduin Ospina MD PCP: Dr. Radha Khan MD Status:ADM TALIB Location: [place] [address] Reason for Visit Reason for Visit: Diagnoses [...] Khan Performed By: Bijal Faust, DIANA, RVT Physical Exam Narrative GENERAL: cooperative [...] 40 Minutes Charges/Coding Visit Charges Inpatient E&M: 81882 Subs Hosp L2 08/03/22 1011 <Electronically signed by Eduin Ospina MD> Cosigner Signature (if applicable): CC: ~ Signed [facility] Work Phone: 1(202) 825-631205-04-[address] Ospina [facility] August 02, 2022 10:50am Note Date/Time August 02, 2022 8:30am [facility] Medical Records Department [address] [place] [address] Progress Note - Hospitalist 08/02/22 0828 MR#: [id number] Acct: [id number] Name: KRUNAL LEOS Rep #:[id number] : 1965 56 From: Eduin Ospina MD PCP: Dr. Radha Khan MD Status:ADM TALIB Location: [place] [address] Reason for Visit Reason for Visit: Diagnoses [...] (Auto) 70.4 H, Lymph % (Auto) 13.4L, Benzie % (Auto) 11.7 H, Eos % (Auto) [...] % (Auto) 59.7, Lymph % (Auto) 21.5, Benzie % (Auto) 14.4 H, Eos % (Auto) [...] 40 Minutes Charges/Coding Visit Charges Inpatient E&M: 72086 Subs Hosp L2 08/02/22 1050 <Electronically signed by Eduin Ospina MD> Cosigner Signature (if applicable): CC: ~ Signed [facility] Work Phone: 1(643) 958-875605-04-2023 History and physical note Author Dr. Bell [facility] August 02, 2022 2:34am Note Date/Time August 01, 2022 10:32p m [facility] Medical Records Department [address] [place] [address] H&P Exam - Hospitalist 08/01/22 2232 MR#: [id number] Acct: [id number] Name: KRUNAL LEOS Rep #:[id number] : 1965 56 From: Cookie Bell MD PCP: Dr. Radha Khan MD Status:ADM TALIB Location: [place] [address] HPI - General General Date of Admission: [...] neuropathy, Hx TIA who presents to the [facility] ED on 08/01/22 with history of ongoing [...] meclizine 25 mg p.o. x1. [facility] Medical History (Updated 08/02/22 @ 02:28 by [...] Last Taken 05/09/22] 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 meter,continuous (Dexcom G6 Instrument Technologist) #1 ea 07/26/20 [Rx Last Taken Unknown] [...] HCl Allergy Anaphylaxis Verified 08/01/22 19:10 [From [facility]] Family History (Updated 08/02/22 @ 02:29 [...] (Auto) 70.4 H, Lymph % (Auto) 13.4L, Benzie % (Auto) 11.7 H, Eos % (Auto) [...] neuropathy, Hx TIA who presents to the [facility] ED on 08/01/22 with history of ongoing [...] 75 minutes. Charges/Coding Visit Charges Inpatient E&M: 64764 Init Hosp L3 Procedures Hospitalists Procedures: 22456 Advncd Care Plan 30 Min 08/02/22 0234 <Electronically signed by Cookie Bell MD> Cosigner Signature (if applicable): CC: Dr. Radha Khna MD; Dr. Cookie Bell MD~ Signed [facility] Work Phone: 1(323) 238-500505-04-[address] Hill [facility] August 01, 2022 11:55pm Note Date/Time August 01, 2022 8:08pm [facility] Medical Records Department [address] [place] [address] Emergency Department Summary 08/01/22 MR#: [id number] Acct: [id number] Name: KRUNAL LEOS Rep #:[id number] : 1965 56 From: Nely Hill MD PCP: Dr. Radha Khan MD Status:ADM TALIB Location: [place] [address] HPI History of Present Illness Chief Complaint: [...] equivocal and norecommendation for surgery was made. [facility] Medical History Acute kidney injury Anemia Anxiety [...] Last Taken 05/09/22] 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 meter,continuous (Dexcom G6 Instrument Technologist) #1 ea 07/26/20 [Rx Last Taken Unknown] [...] Medical decision making narrative: Patient placed on hall monitor. EKG obtained to evaluate for cardiac [...] 70.4 H Lymph % (Auto) 13.4 L Benzie % (Auto) 11.7 H Eos % (Auto) [...] (Auto) Neut % (Auto) Lymph % (Auto) Benzie % (Auto) Eos % (Auto) Baso % [...] 21:16 EDT Reading Location ID and State: [facility] / [place] , Service support , EKG Initial EKG: [...] our attention. I spoke with neurology at [facility]. Given that the patient is already [...] Vertigo Prescriptions: No Action (DME) Dexcom G6 Instrument Technologist Misc See Rx Instructions .ROUTE .MEDSUPPLY Qty: [...] Provider] - Disposition Disposition: Acute Care Hospital [facility] What to do if you have Problems For any increased pain, shortness of breath, bleeding, nausea or vomiting, chestpain, or any unexpected problems, contact your Primary Care Provider. Call [facility] ([phone]) or report to the closest Emergency Room. Call 911 if necessary. 08/01/22 3449 <Electronically signed by Nely Hill MD> Cosigner Signature (if applicable): CC: Dr. Radha Khan MD ~ Signed [facility] Work Phone: Evaluation note* Diagnosis Onset [...] heart failure) chronic KIANNA (obstructive sleep apnea) [facility] Work Phone: Evaluation note* Diagnosis Onset [...] (obstructive sleep apnea) chronic Diabetes chronic Obesity [facility] Work Phone: Evaluation note* Diagnosis Onset [...] Paroxysmal atrial fibrillation acute Essential (primary) hypertension [facility] Work Phone: Evaluation note* Diagnosis Onset Date Resolution Status Left carotid bruit acute Paroxysmal atrial fibrillation acute Essential (primary) hypertension chronic Diabetes chronic Essential (primary) hypertension chronic Obesity chronic Dyspnea on exertion acute Chronic diastolic CHF (congestive heart failure) chronic KIANNA (obstructive sleep apnea) chronic Dyspnea on exertion acute Left carotid bruit acute Paroxysmal atrial fibrillation acute Essential (primary) hypertension [facility] Work Phone: Evaluation note* Diagnosis Onset Date Resolution Status Diabetes chronic Essential (primary) hypertension chronic Obesity chronic Dyspnea on exertion acute Chronic diastolic CHF (congestive heart failure) chronic KIANNA (obstructive sleep apnea) chronic Dyspnea on exertion acute Left carotid bruit acute Paroxysmal atrial fibrillation acute Essential (primary) hypertension chronic Diabetes chronic Essential (primary) hypertension chronic Obesity [facility] Work Phone: Evaluation note* Diagnosis Onset [...] Paroxysmal atrial fibrillation acute Essential (primary) hypertension [facility] Work Phone: Evaluation note* Diagnosis Onset [...] apnea) chronic Diabetes chronic Hypothyroidism chronic Obesity [facility] Work Phone: Evaluation note* Diagnosis Onset [...] apnea) chronic Diabetes chronic Hypothyroidism chronic Obesity [facility] Work Phone: Evaluation note* Diagnosis Onset [...] chronic Hypothyroidism chronic Obesity chronic Vertigo acute [facility] Work Phone: Evaluation note* Diagnosis Onset Date Resolution Status Chronic diastolic CHF (congestive heart failure) chronic Chronic respiratory failure with hypoxia chronic Dyspnea on exertion chronic Obesity chronic KIANNA (obstructive sleep apnea) chronic Diabetes chronic Hypothyroidism chronic Obesity chronic Vertigo acute Diabetes chronic Essential (primary) hypertension chronic Insulin pump titration chron ic Obesity chronic Presence of insulin pump chr onic [facility] Work Phone: Evaluation note* Diagnosis Onset Date Resolution Status Vertigo acute Diabetes chronic Essential (primary) hypertension chronic Insulin pump titration chron ic Obesity chronic Presence of insulin pump chr onic Carotid stenosis acute Double vision acute Left carotid bruit acute Vertigo acute [facility] Work Phone: Evaluation note* Diagnosis Onset Date Resolution Status Carotid stenosis acute Double vision acute Left carotid bruit acute Vertigo acute Post op infection acute Thyroid nodule acute CKD (chronic kidney disease) chronic Diabetes chronic Hypothyroidism chronic Microalbuminuria chronic Obesity chronic Multiple thyroid nodules acu [facility] Work Phone: Evaluation note* Diagnosis Onset Date Resolution Status Post op infection acute Thyroid nodule acute CKD (chronic kidney disease) chronic Diabetes chronic Hypothyroidism chronic Microalbuminuria chronic Obesity chronic Multiple thyroid nodules acu te CKD (chronic kidney disease) chronic Diabetes chronic Hypothyroidism chronic Microalbuminuria chronic Neuropathy chronic Obesity [facility] Work Phone: Evaluation note* Diagnosis Onset [...] on exertion chronic Essential (primary) hypertension chronic [facility] Work Phone: Evaluation note* Diagnosis Onset [...] (primary) hypertension chronic Multiple thyroid nodules acu [facility] Work Phone: Evaluation note* Diagnosis Onset [...] nodules acu te Polyneuropathy acute Hyperlipidemia chronic [facility] Work Phone: Evaluation note* Diagnosis Onset [...] cerebrovascular accident (CVA) acute Peripheral vestibulopathy ac [place] Polyneuropathy acute Hyperlipidemia chronic Double vision resolved [facility] Work Phone: Evaluation note* Diagnosis Onset Date Resolution Status CKD (chronic kidney disease) chronic Diabetes chronic Hypothyroidism chronic Microalbuminuria chronic Neuropathy chronic Obesity chronic Left carotid bruit acute Paroxysmal atrial fibrillation acute Dyspnea on exertion chronic Essential (primary) hypertension chronic Multiple thyroid nodules acu te History of TIA (transient ischemic attack) acute Ischemic cerebrovascular accident (CVA) acute Peripheral vestibulopathy ac [place] Polyneuropathy acute Hyperlipidemia chronic Double vision resolved [facility] Work Phone: Evaluation note* Diagnosis Onset Date Resolution Status Left carotid bruit acute Paroxysmal atrial fibrillation acute Dyspnea on exertion chronic Essential (primary) hypertension chronic Multiple thyroid nodules acu te History of TIA (transient ischemic attack) acute Ischemic cerebrovascular accident (CVA) acute Peripheral vestibulopathy ac [place] Polyneuropathy acute Hyperlipidemia chronic Double vision resolved CKD (chronic kidney disease) chronic Diabetes chronic Essential (primary) hypertension chronic Hypothyroidism chronic Neuropathy chronic Obesity chronic Carotid stenosis acute History of TIA (transient ischemic attack) acute Ischemic cerebrovascular accident (CVA) acute Polyneuropathy acute [facility] Work Phone: Evaluation note* Diagnosis Onset Date Resolution Status CKD (chronic kidney disease) chronic Diabetes chronic Essential (primary) hypertension chronic Hypothyroidism chronic Neuropathy chronic Obesity chronic History of TIA (transient ischemic attack) acute Ischemic cerebrovascular accident (CVA) acute Polyneuropathy acute Carotid stenosis chronic Carotid stenosis chronic Carotid stenosis chronic [facility] Work Phone: Evaluation note* Diagnosis Cerebrovascular accident (CVA), unspecified mechanism (HCC)- Primary Cerebrovascular accident (CVA), unspecified mechanism (HCC) documented in this encounter [facility]* Diagnosis Bilateral carotid artery stenosis- Primary Occlusion and stenosis of carotid artery without mention of cerebral infarction Ischemic cerebrovascular accident (CVA) (HCC) documented in this encounter [facility]* Diagnosis Chronic kidney disease, unspecified CKD stage- Primary documented in this encounter [facility] note* Diagnosis Ischemic cerebrovascular accident (CVA) (HCC)- Primary Bilateral carotid artery stenosis Occlusion and stenosis of carotid artery without mention of cerebral infarction [facility]* Diagnosis Bilateral carotid artery occlusion Occlusion and stenosis of carotid artery without mention of cerebral infarction [facility]* Diagnosis Cerebrovascular accident (CVA), unspecified mechanism (HCC)- Primary Bilateral carotid artery stenosis Occlusion and stenosis of carotid artery without mention of cerebral infarction documented in this encounter [facility]* Diagnosis Ischemic cerebrovascular accident (CVA) (HCC) Bilateral carotid artery stenosis Occlusion and stenosis of carotid artery without mention of cerebral infarction documented in this encounter [facility]* Diagnosis Bilateral carotid artery stenosis- Primary Occlusion and stenosis of carotid artery without mention of cerebral infarction [facility]* Diagnosis ILD (interstitial lung disease) (Multi)- Primary Postinflammatory pulmonary fibrosis Pulmonary hypertension (Multi) Other chronic pulmonary heart diseases Chronic respiratory failure with hypoxia documented in this encounter [facility] Work Phone: Evaluation note* Diagnosis ILD (interstitial lung disease) (Multi) Postinflammatory pulmonary fibrosis documented in this encounter [facility] Work Phone: Evaluation note* Diagnosis Pulmonary hypertension (Multi) Other chronic pulmonary heart diseases documented in this encounter [facility] Work Phone: Evaluation note* Diagnosis ILD (interstitial lung disease) (Multi) Postinflammatory pulmonary fibrosis documented in this encounter [facility] Work Phone: Evaluation note* Diagnosis ILD (interstitial lung disease) (Multi)- Primary Postinflammatory pulmonary fibrosis Chronic respiratory failure with hypoxia KIANNA (obstructive sleep apnea) Obstructive sleep apnea (adult) (pediatric) BMI 40.0-44.9, adult (Multi) Diastolic heart failure, unspecified HF chronicity documented in this encounter [facility] Work Phone: Evaluation note* Diagnosis ILD (interstitial lung disease) (Multi) Postinflammatory pulmonary fibrosis documented in this encounter [facility] Work Phone: Evaluation note* Diagnosis ILD (interstitial lung disease) (Multi)- Primary Postinflammatory pulmonary fibrosis Chronic respiratory failure with hypoxia KIANNA (obstructive sleep apnea) Obstructive sleep apnea (adult) (pediatric) BMI 40.0-44.9, adult (Multi) Diastolic heart failure, unspecified HF chronicity documented in this encounter [facility] Work Phone: Evaluation note* Diagnosis ILD (interstitial lung disease) (Multi) Postinflammatory pulmonary fibrosis documented in this encounter [facility] Work Phone: History of Present illness Narrative* Rosalino Padron MD - 08/28/2024 1:00 PM EDT Images from the original note were not included. Department of Medicine Division of Pulmonary, Critical Care, and Sleep Medicine Consultation [address] [facility] Patient was referred by his PCP (Dr. [...] surgery total pulmonary decortication in 2015 at [facility]. He was hospitalized in [place] from 03/02-03/04/2024 for acute hypoxic respiratory failure. [...] Review Audit Reviewed by Heavenly Sparks MA (Human Anatomy Teacher) on 08/28/24 at 1158 Medication Order Taking? Sig Documenting Provider Last Dose Status albuterol 90 mcg/actuation inhaler [id number] INHALE 2 PUFFS BY MOUTH EVERY 4 HOURS NEEDED FOR SHORTNESS OF BREATH OR WHEEZING Historical Provider, Active amLODIPine (Norvasc) 5 mg tablet [id number] Take 1 tablet (5 mg) by mouth once daily. Historical ProviderMD Active aspirin 325 mg tablet [id number] Take 1 tablet (325 mg) by mouth once daily. Historical ProviderLORNActive atorvastatin (Lipitor) 80 mg tablet [id number] Take 1 tablet (80 mg) by mouth once daily at bedtime.Historical ProviderMD Active betamethasone, augmented, (Diprolene) 0.05 % lotion [id number] APPLY TO RASH ON THE TRUNK OR SCALP 1-2 TIMES DAILY NEEDED Historical ProviderMD Active bismuth subsalicylate (Pepto Bismol) 262 mg chewable tablet [id number] CHEW AND SWALLOW 2 TABLETS BYMOUTH 3 TIMES A DAY for 2 weeks. max 16 tablets per 24 hours Patient not taking: Reported on 08/07/2024 Historical ProviderMD Active Brilinta 90 mg tablet [id number] 1 tablet (90 mg). Historical ProviderMD Active busPIRone (Buspar) 10 mg tablet [id number] Take 1 tablet (10 mg) by mouth 3 times a day. Historical ProviderMD Active clopidogrel (Plavix) 75 mg tablet [id number] Take 1 tablet (75 mg) by mouth early in the morning.. Historical ProviderMD Active dapagliflozin propanediol (Farxiga) 5 mg [id number] Take 1 tablet (5 mg) by mouth once daily. Historical ProviderMD Active Dexcom G6 Sensor device [id number] USE DIRECTED FOR CONTINUOUS BLOOD GLUCOSE MONITORING, CHANGE SENSOR EVERY 10 DAYS Historical ProviderMD Active DULoxetine (Cymbalta) [address] capsule [id number] Take 1 capsule (60 mg) by mouth once daily. Historical ProviderMD Active Eliquis 5 mg tablet [id number] Take 1 tablet (5 mg) by mouth 2 times a day. Gloria ProviderMD Active ergocalciferol (Vitamin D-2) 1250 mcg (50,000 units) capsule [id number] Take 1 capsule (1,250 mcg) by mouth. Gloria Rahman MD Active fenofibrate (Tricor) 54 mg tablet [id number] Take 1 tablet (54 mg) by mouth once daily. Gloria ProviderMD Active furosemide (Lasix) 40 mg tablet [id number] Take 1 tablet (40 mg) by mouth. Gloria Rahman MD Active glimepiride (Amaryl) 4 mg tablet [id number] Take 1 tablet (4 mg) by mouth early in the morning.. Patient not taking: Reported on 08/07/2024 Gloria Rahman MD Active glipiZIDE (Glucotrol) 5 mg tablet [id number] Take 1 tablet (5 mg) by mouth. Patient not taking: Reported on 08/07/2024 Gloria Rahman MD Active HumuLIN R U-500, Conc, Insulin 500 unit/mL CONCENTRATED injection [id number] INJECT 75 UNITS DAILY VIA CONTINUOUS SUBCUTANEOUS INFUSION. DISCARD VIAL AFTER 40 DAYS Patient not taking: Reported on 08/07/2024 Gloria Rahman MD Active Jardiance 25 mg [id number] Take 1 tablet (25 mg) by mouth once daily. Historical MD Lacey Active levothyroxine (Synthroid, Levoxyl) 112 mcg tablet [id number] Take 1 tablet (112 mcg) by mouth once daily. Gloria Rahman MD Active lisinopril 40 mg tablet [id number] Take 1 tablet (40 mg) by mouth once daily. Historical ProviderMD Active metFORMIN (Glucophage) 500 mg tablet [id number] Take 1 tablet (500 mg) by mouth 2 times daily (morning and late afternoon). Gloria Rahman MD Active metoprolol succinate XL (Toprol-XL) 100 mg 24 hr tablet [id number] TAKE 1 TABLET BY MOUTH DAILY for heart Historical ProviderMD Active Mucinex DM 60-1,200 mg tablet extended release 12 hr [id number] Take 1 tablet by mouth every 12 hours. Gloria ProviderMD Active oxyCODONE-acetaminophen (Percocet) 5-325 mg tablet [id number] Take 1 tablet by mouth 2 times a day as needed. Patient not taking: Reported on 08/07/2024 Historical MD Lacey Active pantoprazole (ProtoNix) 40 mg EC tablet [id number] Take 1 tablet (40 mg) by mouth. Historical ProviderMD Active potassium citrate CR (Urocit-K-10) 10 mEq ER tablet [id number] Take 1 tablet (10 mEq) by mouth twicea day. Historical MD Lacey Active predniSONE (Deltasone) 20 mg tablet [id number] Take 0.5 tablets (10 mg) by mouth early in the morning.. Historical MD Lacey Active predniSONE (Deltasone) 20 mg tablet [id number] Take 2 tablets (40 mg) by mouth once daily. Patient not taking: Reported on 08/07/2024 Rosalino Padron MD Active predniSONE (Deltasone) 5 mg tablet [id number] Take 4 tablets (20 mg) by mouth once daily for 30 days, THEN 3 tablets (15 mg) once daily for 30 days, THEN 2 tablets (10 mg) once daily for 30 days, THEN1 tablet (5 mg) once daily for 14 days. Rosalino Padron MD Active spironolactone (Aldactone) 50 mg tablet [id number] Take 1 tablet (50 mg) by mouth once daily. Patient not taking: Reported on 08/07/2024 Historical MD Lacey Active tamsulosin (Flomax) 0.4 mg 24 hr capsule [id number] Take 1 capsule (0.4 mg) by mouth once daily. Historical MD Lacey Active traMADol (Ultram) 50 mg tablet [id number] Take 1 tablet (50 mg) by mouth. [...] Rosalino Padron MD 08/28/2024 [facility] Work Phone: Hospital course Narrative No data available for this section [facility] Hospital Discharge instructions No data available for this section [facility] Hospital Discharge instructions* Attachments The following attachments cannot be sent through Care Everywhere. * Arteriogram Discharge Instructions (Luxembourger) documented in this [facility]* Attachments The following attachments cannot be sent through Care Everywhere. * Risk Factors for Stroke (Luxembourger) * Stroke (Luxembourger) * Carotid Artery Disease (Luxembourger) documented in this [facility]* Patient Instructions* Rosalino Padron MD - 08/28/2024 [...] and walking test. For scheduling purposes: Call [phone] to schedule a breathing or a walking test Call [phone] to schedule EKG's, Echocardiograms and Cardiopulmonary Stress Tests. Call [phone] to schedule Radiology tests such as Nuclear Medicine Stress Tests, CT Scans, and MRI's. Should you have any questions Please Call our pulmonary nurse Linda Marie at [phone] or my food service assistant Puneet Leone at [phone] documented in this [facility] Work Phone: Reason for referral (narrative)No reason for referral information availableWVan [facility] Work Phone: Reason for visit Narrative* Imaging (Routine) - Closed Specialty Diagnoses / Procedures Referred By Contac t Referred To Contact Radiology Diagnoses Bilateral carotid artery stenosis Ischemic cerebrovascular accident (CVA) (HCC) Procedures CTA head neck angio w and wo IV contrast Oziel Culp MD [address] [place] [address] Phone: tel: fax: Referral ID Status Reason Start Date Expiration Date Visits Re quested Visits Authorized [id number] Closed 01/06/2024 01/05/2025 1 1 [facility] HealthReason for visit Narrative* Imaging (Routine) - Closed Specialty Diagnoses / Procedures Referred By Contac t Referred To Contact Cardiology Diagnoses Bilateral carotid artery occlusion Procedures Vascular US carotid artery duplex bilateral Suzy Jauregui MD [address] [place] [address] Phone: tel: fax: Referral ID Status Reason Start Date Expiration Date Visits Re quested Visits Authorized [id number] Closed 10/15/2023 10/14/2024 1 1 [facility] [email or web address] Data for visit Narrative* Imaging (Routine) - Closed Specialty Diagnoses / Procedures Referred By Contac t Referred To Contact Radiology Diagnoses Ischemic cerebrovascular accident (CVA) (HCC) Bilateral carotid artery stenosis Procedures IR angiogram cerebral with possible intervention Mey Loya, ECOLOGICAL ECONOMIST - SACK LIFTER [address] [place] [address] Phone: tel: fax: Referral ID Status Reason Start Date Expiration Date Visits Re quested Visits Authorized [id number] Closed 02/13/2024 02/12/2025 1 1 [facility] for visit Narrative* Imaging (Routine) - Authorized Specialty Diagnoses / Procedures Referred By Contac t Referred To Contact Radiology Diagnoses ILD (interstitial lung disease) (Multi) Procedures [place] [address] [place] [address] Phone: tel: fax: Referral ID Status Reason Start Date Expiration Date Visits Requested Visits Authorized [id number] Authorized Perform Procedure 06/26/2024 06/26/2025 1 1 [facility] Work Phone: reason for visit Narrative* CV Imaging (Routine) - Authorized Specialty Diagnoses / Procedures Referred By Contac t Referred To Contact Cardiology Diagnoses Pulmonary hypertension (Multi) Procedures Transthoracic Echo (TTE) Complete MN ECHO TTHRC R-T 2D W/WOM-MODE COMPL SPEC&[place] [address] [place] [address] Phone: tel: fax: Referral ID Status Reason Start Date Expiration Date Visits Requested Visits Authorized [id number] Authorized Perform Procedure 06/26/2024 06/26/2025 1 1 [facility] Work Phone: reason for visit Narrative* PFT (Routine) - Pending Review Specialty Diagnoses / Procedures Referred By Contac t Referred To Contact Diagnoses ILD (interstitial lung disease) (Multi) Procedures Pulmonary Stress Test (6 Min. Walk) [place] [address] [place] [address] Phone: tel: fax: Referral ID Status Reason Start Date Expiration Date V isits Requested Visits Authorized [id number] Pending Review 06/26/2024 06/26/2025 1 1 [facility] Work Phone: reason for visit Narrative* PFT (Routine) - Pending Review Specialty Diagnoses / Procedures Referred By Contac t Referred To Contact Diagnoses ILD (interstitial lung disease) (Multi) Procedures Complete Pulmonary Function Test (Spirometry/DLCO/Lung Volumes) Rosalino Padron MD [address] [place] [address] Phone: tel: fax: Referral ID Status Reason Start Date Expiration Date V isits Requested Visits Authorized [id number] Pending Review 06/26/2024 06/26/2025 1 1 [facility] Work Phone: reason for visit Narrative* PFT (Routine) - Pending Review Specialty Diagnoses / Procedures Referred By Contac t Referred To Contact Diagnoses ILD (interstitial lung disease) (Multi) Procedures Spirometry Pre/Post Bronchodilator Roslaino Padron MD [address] [place] [address] Phone: tel: fax: Referral ID Status Reason Start Date Expiration Date V isits Requested Visits Authorized [id number] Pending Review 08/07/2024 08/07/2025 1 1 [facility] Work Phone: reason for visit Narrative* PFT (Routine) - Pending Review Specialty Diagnoses / Procedures Referred By Contac t Referred To Contact Diagnoses ILD (interstitial lung disease) (Multi) Procedures Pulmonary Stress Test (6 Min. Walk) Rosalino Padron MD [address] [place] [address] Phone: tel: fax: Referral ID Status Reason Start Date Expiration Date V isits Requested Visits Authorized [id number] Pending Review 08/07/2024 08/07/2025 1 1 [facility] Work Phone: reason for visit Narrative* PFT (Routine) - Pending Review Specialty Diagnoses / Procedures Referred By Contac t Referred To Contact Diagnoses ILD (interstitial lung disease) (Multi) Procedures DLCO / Diffusion Capacity Rosalino Padron MD [address] [place] [address] Phone: tel: fax: Referral ID Status Reason Start Date Expiration Date V isits Requested Visits Authorized [id number] Pending Review 08/07/2024 08/07/2025 1 1 [facility] Work Phone: Reason for visit Narrative* Endoscopy (Routine) - Authorized Specialty Diagnoses / Procedures Referred By Contac t Referred To Contact Gastroenterology Diagnoses ILD (interstitial lung disease) (Multi) Procedures Bronchoscopy Tier 2; w BAL, [place] [address] [place] [address] Phone: tel: fax: Referral ID Status Reason Start Date Expiration Date V isits Requested Visits Authorized [id number] Authorized 08/11/2024 08/11/2025 1 1 [facility] Work Phone: Summary Purpose Family History No [...] FoundDocuments on File Type Date Recorded Patient Clinical Operations Specialist Expl anation Advance Directive(s) 08/19/2015 12:10 PM Advance Directive(s) 09/10/2015 4:56 PM Advance Directive Response Recorded Date/ Time Name of Medical Power of Relay Telegrapher Tia Leos/w awais June 19, 2021 11:06am Advance Directives Yes September 08 3:58am Living Will No July 16, 2021 2:23pm Power of Relay Telegrapher No July 16 2:23pm Advance Directive Response Recorded Date/ Time Name of Medical Power of Relay Telegrapher Tia Leos/segundo awais June 19, 2021 11:06am Advance Directives Yes September 08 3:58am Living Will Yes September 04, 2021 6 :29am Power of Relay Telegrapher Yes September 04, 2021 6:29am Advance Directive Response Recorded Date/ Time Name of Medical Power of Relay Telegrapher Tia Leos/w awais June 19, 2021 11:06am Name of Medical Power of Relay Telegrapher tai leos September 04, 2021 6:29am Advance Directives Yes September 08 3:58am Living Will Yes September 04, 2021 6 :29am Power of Relay Telegrapher Yes September 04, 2021 6:29am Advance Directive Response Recorded Date/ Time Advance Directives Yes September 08 2:58am Living Will Yes September 04, 2021 5 :29am Power of Relay Telegrapher Yes September 04, 2021 5:29am Advance Directive Response Recorded Date/ Time Advance Directives on File Yes 2022 8:42am Name of Medical Power of Relay Telegrapher Tia () May 09, 2022 8:42am Advance Directives Yes May 09, 2022 8:42am Living Will Yes May 09 8:42am Power of Relay Telegrapher Yes May 09, 2022 8:42am Advance Directive Response Recorded Date/ Time Advance Directives on File Yes 2022 9:42am Name of Medical Power of Relay Telegrapher Tia () May 09, 2022 9:42am Advance Directives Yes May 09, 2022 9:42am Living Will Yes May 09 9:42am Power of Relay Telegrapher Yes May 09, 2022 9:42am Advance Directive Response Recorded Date/ Time Advance Directives on File Yes 2022 9:42am Name of Medical Power of Relay Telegrapher Tia () May 09, 2022 9:42am Name of Medical Power of Relay Telegrapher tia [facility] [phone] August 02, 2022 12:47am Advance Directives Yes May 09, 2022 9:42am Living Will Yes August 02, 2022 12 :47am Power of Relay Telegrapher Yes August 02, 2022 12:47am Advance Directive Response Recorded Date/ Time Name of Medical Power of Relay Telegrapher tia [facility] [phone] August 02, 2022 12:47am Advance Directives Yes May 09, 2022 9:42am Living Will Yes August 02, 2022 12 :47am Power of Relay Telegrapher Yes August 02, 2022 12:47am Advance Directive Response Recorded Date/ Time Advance Directives Yes May 09, 2022 9:42am Living Will Yes August 02, 2022 12 :47am Power of Relay Telegrapher Yes August 02, 2022 12:47am Advance Directive Response Recorded Date/ Time Name of Medical Power of Relay Telegrapher TIA February 14, 2023 9:43am Advance Directives Yes May 09, 2022 8:42am Living Will Yes February 14, 9:43am Power of Relay Telegrapher Yes February 14, 2023 9:43am Advance Directive Response Recorded Date/ Time Name of Medical Power of Relay Telegrapher TIA February 14, 2023 10:43am Advance Directives Yes May 09, 2022 9:42am Living Will Yes February 14, 10:43am Power of Relay Telegrapher Yes February 14, 2023 10:43am Advance Directive Response Recorded Date/ Time Advance Directives Yes May 09, 2022 9:42am Living Will Yes February 14 10:43am Power of Relay Telegrapher Yes February 14, 2023 10:43am Documents on File Type Date Recorded Patient Clinical Operations Specialist Expl anation DNR (Do Not Resuscitate) 10/03/2023 8:09 PM Date Activated Date Inactivated Comments 10/03/2023 9:41 PM 10/05/2023 5:06 PM Documents on File Type Date Recorded Patient Clinical Operations Specialist Expl anation DNR (Do Not Resuscitate) 10/03/2023 8:09 PM Date Activated Date Inactivated Comments 10/03/2023 9:41 PM 10/05/2023 5:06 PM Advance Directive Response Recorded Date/ Time Living Will Yes February 14 10:43am Do you have a Healthcare Power of Relay Telegrapher? Yes February 14, 2023 10:43am Living Will Yes November 15 11:41am Do you have a Healthcare Power of Relay Telegrapher? Yes November 16, 2023 11:41am Living Will Yes January 20 4:34am Do you have a Healthcare Power of Relay Telegrapher? Yes January 21, 2024 4:34am Advance Directives Yes April 30, 2024 10:06am Living Will Yes April 12 3:26pm Do you have a Healthcare Power of Relay Telegrapher? Yes April 12, 2024 3:26pm Name of Medical Power of Relay Telegrapher - TIA April 12, 2024 3:26pm Living Will Yes April 24 10:37pm Do you have a Healthcare Power of Relay Telegrapher? Yes April 24, 2024 10:37pm Name of Medical Power of Relay Telegrapher tia April 24, 2024 10:37pm Advance Directive Response Recorded Date/ Time Living Will Yes February 14 10:43am Do you have a Healthcare Power of Relay Telegrapher? Yes February 14, 2023 10:43am Living Will Yes November 15 11:41am Do you have a Healthcare Power of Relay Telegrapher? Yes November 16, 2023 11:41am Living Will Yes January 20 4:34am Do you have a Healthcare Power of Relay Telegrapher? Yes January 21, 2024 4:34am Advance Directives Yes April 30, 2024 10:06am Living Will Yes April 24 10:37pm Do you have a Healthcare Power of Relay Telegrapher? Yes April 24, 2024 10:37pm Name of Medical Power of Relay Telegrapher tia April 24, 2024 10:37pm Advance Directive Response Recorded Date/ Time Living Will Yes February 14 10:43am Do you have a Healthcare Power of Relay Telegrapher? Yes February 14, 2023 10:43am Living Will Yes January 20 4:34am Do you have a Healthcare Power of Relay Telegrapher? Yes January 21, 2024 4:34am Advance Directives Yes April 30, 2024 10:06am Living Will Yes April 24 10:37pm Do you have a Healthcare Power of Relay Telegrapher? Yes April 24, 2024 10:37pm Name of Medical Power of Relay Telegrapher tia April 24, 2024 10:37pm Advance Directive Response Recorded Date/ Time Advance Directives Yes April 30, 2024 10:06am Chief Complaint and Reason for Visit Chief Complaint 4 M FU UNSTABLE ANGINA, SOB UNSTABLE ANGINA, SOB UNSTABLE ANGINA, SOB UNSTABLE ANGINA, SOB UNSTABLE ANGINA, SOB HYPOXIA HYPOXIA HYPOXIA 1 M FU 9 m fu/[address] [place] [address] fu Shortness of breath dizziness Reason for [...] HYPOXIA HYPOXIA HYPOXIA 1 M FU [address] fu Shortness of breath dizziness KIANNA; [...] HYPOXIA HYPOXIA HYPOXIA 1 M FU [address] fu Shortness of breath dizziness KIANNA; [...] HYPOXIA HYPOXIA HYPOXIA 1 M FU [address] fu Shortness of breath dizziness KIANNA; [...] HYPOXIA HYPOXIA HYPOXIA 1 M FU [address] fu Shortness of breath dizziness KIANNA; LM 08/04 & 08/07 6 wk FU CP, PROB ACS CP, PROB ACS SOB S/P [facility] DYSPNEA Reason for Visit Diabetes Essential [...] Chief Complaint HR 130 today per [facility] E-ORDER LEFT CAROTID BRUIT 3 M [...] note per May 21, 2024 10:41am ALFORD MELT HELPER TO READ May 28, 2024 7:06am 30 DAY MONITOR May 28, 2024 9:00am unable to tolerate cpap, new oxygen requ irement June 02, 2024 7:43pm B12 inject June 04, 2024 1:20 pm 8-10 WK F/U June 10, 2024 12: 44pm B12 inject July 06, 2024 1:22 pm B12 inject August 06, 2024 2:27pm EKG (MELT HELPER) August 12, 2024 11:03 am EORDERS August 12, 2024 11:27 am Reason for Visit Admit Date Chronic respiratory failure with hypoxia April 12, 2024 1:25pm Acute hypoxemic respiratory failure Ash brayan 2024 1:25pm CHF (congestive heart failure) April [...] per JR May 21, 2024 10:41am ALFORD MELT HELPER TO READ May 28, 2024 7:06am 30 DAY MONITOR May 28, 2024 9:00am unable to tolerate cpap, new oxygen requ irement June 02, 2024 7:43pm B12 inject June 04, 2024 1:20 pm 8-10 WK F/U June 10, 2024 12: 44pm B12 inject July 06, 2024 1:22 pm B12 inject August 06, 2024 2:27pm EKG (MELT HELPER) August 12, 2024 11:03 am EORDERS August [...] note per May 21, 2024 10:41am ALFORD MELT HELPER TO READ May 28, 2024 7:06am 30 DAY MONITOR May 28, 2024 9:00am unable to tolerate cpap, new oxygen requ irement June 02, 2024 7:43pm B12 inject June 04, 2024 1:20 pm 8-10 WK F/U June 10, 2024 12: 44pm B12 inject July 06, 2024 1:22 pm B12 inject August 06, 2024 2:27pm EKG (MELT HELPER) August 12, 2024 11:03 am EORDERS August [...] note per May 21, 2024 10:41am ALFORD MELT HELPER TO READ May 28, 2024 7:06am 30 DAY MONITOR May 28, 2024 9:00am unable to tolerate cpap, new oxygen requ irement June 02, 2024 7:43pm B12 inject June 04, 2024 1:20 pm 8-10 WK F/U June 10, 2024 12: 44pm B12 inject July 06, 2024 1:22 pm B12 inject August 06, 2024 2:27pm EKG (MELT HELPER) August 12, 2024 11:03 am EORDERS August [...] note per May 21, 2024 10:41am ALFORD MELT HELPER TO READ May 28, 2024 7:06am 30 DAY MONITOR May 28, 2024 9:00am unable to tolerate cpap, new oxygen requ irement June 02, 2024 7:43pm B12 inject June 04, 2024 1:20 pm 8-10 WK F/U June 10, 2024 12: 44pm B12 inject July 06, 2024 1:22 pm B12 inject August 06, 2024 2:27pm EKG (MELT HELPER) August 12, 2024 11:03 am EORDERS August [...] Culp MD [address] [place] [address] Referral ID Status Reason Start Date Expiration Date V isits Requested Visits Authorized [id number] Pending Review 01/06/2024 01/05/2025 1 1 Specialty Diagnoses / Procedures Referred By Contac t Referred To Contact Diagnoses Cerebrovascular accident (CVA), unspecified mechanism (HCC) Harmeet Stallworth MD [address] [place] [address] Referral ID Status Reason Start Date Expiration Date Visits Re quested Visits Authorized [id number] Closed 1 1 Additional Source Comments (unrecognized sect ion and content) No Status Records FoundNo Status Records FoundNo Status Records FoundNo Status Records FoundNo Status Records FoundNo Status Records FoundNo Status Records FoundNo Status Records FoundNo Status Records Found INFORMATION SOURCE (unrecogn ized section and content) DATE CREATED AUTHOR 09/08/2018 Albert Lea [email or web address] [facility] ([place]) DATE CREATED AUTHOR AUTHOR'S ORGANIZ ATION 10/18/2023 Albert Lea [email or web address] [facility] [place] DATE CREATED AUTHOR AUTHOR'S ORGANIZ ATION 06/13/2024 [facility] DATE CREATED AUTHOR AUTHOR'S ORGANIZ ATION 07/25/2024 [facility] DATE CREATED AUTHOR AUTHOR'S ORGANIZ ATION 07/26/2024 [facility] DATE CREATED AUTHOR AUTHOR'S ORGANIZ ATION 08/08/2024 [facility] DATE CREATED AUTHOR AUTHOR'S ORGANIZ ATION 09/18/[address] [facility] DATE CREATED AUTHOR AUTHOR'S ORGANIZ ATION 09/25/2024 [facility] DATE CREATED AUTHOR AUTHOR'S ORGANIZ ATION 09/26/2024 [facility] Source Comments (unrecognize d section and content) In the event this informatio n is protected by the Federal Confidentiality of Alcohol and Drug Abuse Patient Records regulations: The Federal rules restrict any use of the information to criminally investigate or prosecute any alcohol or drug abuse patient.[facility] Goals (unrecognized section and content) Goals [...] Dr. Radha Khan MD Primary Care Provider, [facility] Provider Active Dr. Jonathon Salas MD Attending Provider Active Team Status: Inactive Member Role Status Dates Dr. Radha Khan MD Primary Care Provider, Referrin g Provider Active PITO Phan Attending Provider Active Team Status: Inactive Member Role Status Dates Dr. Radha Khan MD Primary Care Provider, Referrin g Provider Active Oren Sky HR SYSTEMS ANALYST, HR SYSTEMS ANALYST-C Attending Provider Active Team Status: Active Member [...] Provider, Other Pr ovider Active Oren Sky HR SYSTEMS ANALYST, HR SYSTEMS ANALYST-C Attending Provider, Referring Pro vider Active Team [...] Referrin g Provider Active Fior Vallejo NP, HR SYSTEMS ANALYST-C Attending Provider Active Team Status: Inactive Member [...] Care Provider Active Brandt Winter MD Attending Provider, Referring Provide r Active Team Status: Active Member Role Status Dates Dr. Radha Khan MD Primary Care Provider Active Brandt Winter MD Attending Provider, Referring Provide r [...] Lydia Segura PA, PA Active Oren Sky HR SYSTEMS ANALYST, HR SYSTEMS ANALYST-C Attending Provider Active Team Status: Active Member [...] MD Primary Care Provider Active Oren Sky HR SYSTEMS ANALYST, HR SYSTEMS ANALYST-C Attending Provider, Referring Pro vider Active Team Status: Inactive Member Role Status Dates Dr. Radha Khan MD Primary Care Provider, Referrin g Provider Active Dr. Ochao Dobbs MD Attending Provider Active Medical Supervisor Relationship Specialty Start Date End Date Radha Khan [address] [facility] [address] [place] [phone] PCP - General Family Medicine 10/03/23 Medical Supervisor Relationship Specialty Start Date End Date Radha Khan [address] [facility] [address] [place] [address] PCP - General Family Medicine 10/03/23 Medical Supervisor Relationship Specialty Start Date End Date Radha Khan [address] [place] [address] PCP - General Family Medicine 10/03/23 Medical Supervisor Relationship Specialty Start Date End Date Bill Radha Lisandro [address] [place] [address] PCP - General Family Medicine 10/03/23 Medical Supervisor Relationship Specialty Start Date End Date Radha Khan [address] [place] [address] PCP - General Family Medicine 10/03/23 Medical Supervisor Relationship Specialty Start Date End Date Radha Khan [address] [place] [address] PCP - General Family Medicine 10/03/23 Medical Supervisor Relationship Specialty Start Date End Date Radha Khan [address] [place] [address] PCP - General Family Medicine 10/03/23 Medical Supervisor Relationship Specialty Start Date End Date Radha Khan [address] [place] [address] PCP - General Family Medicine 10/03/23 Suzy Jauregui MD [address] [place] [address] Consulting Physician Vascular Surgery 04/24/24 Medical Supervisor Relationship Specialty Start Date End Date Radha Khan [address] [place] [phone] PCP - General Family Medicine 10/03/23 Suzy Jauregui MD [address] [place] [address] Consulting Physician Vascular Surgery 04/24/24 Medical Supervisor Relationship Specialty Start Date End Date Radha Khan [address] [place] [phone] PCP - General Family Medicine 10/03/23 Suzy Jauregui MD [address] [place] [address] Consulting Physician Vascular Surgery 04/24/24 Medical Supervisor Relationship Specialty Start Date End Date Radha Khan [address] [place] [phone] PCP - General Family Medicine 10/03/23 Suzy Jauregui MD [address] [place] [address] Consulting Physician Vascular Surgery 04/24/24 Medical Supervisor Relationship Specialty Start Date End Date Radha Khan MD [address] [place], [place] [phone] PCP - General Family Medicine 07/24/24 Medical Supervisor Relationship Specialty Start Date End Date Radha Khan MD [address] [place], [place] [address] PCP - General Family Medicine 07/24/24 Medical Supervisor Relationship Specialty Start Date End Date Radha Khan MD [address] [facility] [address] [place] [address] PCP - General Family Medicine 07/24/24 Team [...] S tart: April 15, 2024 Dr. Fran Rodirguez DO Other Provider Active Start : April [...] April 24, 2024 Dr. Radha Khan MD Attending Provider Active Start: April [...] Active Start: May 05, 2024 Dr. Rito Lunbderg MD Referring Provider Active Start: May 05, [...] August 17, 2024 End: August 17, 2024 Medical Supervisor Relationship Specialty Start Date End Date Radha Khan MD [address] [place] [address] PCP - General Family Medicine 07/24/24 Team [...] September 16, 2024 End: September 16, 2024 Medical Supervisor Relationship Specialty Start Date End Date Radha Khan MD [address] [place] [address] PCP - General Family Medicine 07/24/24 Medical Supervisor Relationship Specialty Start Date End Date Radha Khan MD [address] [facility] [address] [place] [address] PCP - General Family Medicine 07/24/24 Reason for Visit (unrecogniz ed section and content) Specialty Diagnoses / Procedures Referred By Luke t Referred To Contact Diagnoses carotid stenosis Procedures . Joe Rocha MD [address] [place] [address] [facility] [address] [address] Referral ID Status Reason Start Date Expiration Date Visits Re quested Visits Authorized [id number] 1 Reason Comments New Patient New [...] Sat10/04/23 at 0900 0905 (Given - Provider: Nely Lambert RN) 08 [...] BE BASED ON THE PRIMARY CLINICAL RECORDS. [facility] [employer] [facility]. provides no warranty or guarantee of the accuracy or completeness of information in this document.
--- NOTE | 2024-09-26 18:27 | PCM.HP.STD ---
[facility] - General General Date of Admission: 09/26/24 Date of Service: 09/26/24 Chief Complaint: Left-sided numbness and weakness, virtually resolved but still difficulty getting around HPI Narrative KRUNAL LEOS, is a 59-year-old male history of CVA, chronic respiratory failure on home O2, BPH, depression, type 2 diabetes on insulin pump, KIANNA, anemia, CHF who presented to [facility] ED 09/26/2024 due to tingling weakness on left side that started Saturday afternoon. Patient with left-sided facial droop, left arm paresthesias, left leg paresthesias, left arm weakness, left leg weakness and difficulty with ambulation. Patient was on aspirin, Brilinta, and Eliquis but these were all stopped because he had a lung biopsy to determine the cause of his lung disease and chronic hypoxia at but did take his medicine last evening and this morning. In the ED patient afebrile, heart rate 84 with blood pressure 133/64, respiratory rate 18 and pulse ox 97% on 4 L of O2. CBC with white blood cell count of 14, hemoglobin 9.1, platelet 237. BMP with BUN of 31 and creatinine 1.26, similar to previous with a glucose of 246. Troponin 47. PT/INR 13.[address] with chronic changes but no acute intracranial finding. Patient outside window for any intervention so stroke call not initiated, hospitalist contacted for admission for further stroke workup and PT/OT eval and for teleneurology to see patient in consult. Patient evaluated at bedside with present. They report that Saturday before last he stopped his Brilinta and then on Saturday he stopped his Eliquis and aspirin so he could have a biopsy (09/24) and restarted his triple therapy yesterday however yesterday at 2 PM he developed left-sided numbness and weakness and facial droop. He did not come to the hospital as he said things have happened similar to this before and symptoms resolved so he figured they would resolve and that he did not need to come to the hospital. Symptoms are almost resolved but he still having little bit of a difficult time getting around/ambulating which is why he finally came to the hospital. Time my exam he reports sensation is the same on both sides, he possibly feels very slightly weak in his left leg compared to his right but said weakness is only completely resolved and his facial droop is resolved and has no difficulty with his speech or mental status. Yesterday did have a bit of a headache on the right side which has since resolved. Does have cough and shortness of breath but that is what he is undergoing pulmonary workup for. No other new acute complaints at time of my exam. 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 Morbid obesity with BMI of 45.0-49.9, adult Atherosclerotic heart disease of [place] coronary artery without angina pectoris Mini stroke (~10/01/23) Peripheral vestibulopathy Cranial nerve disorder Polyneuropathy Wears glasses Depression Anxiety Cancer Thyroid disease Insulin dependent diabetes mellitus Arthritis History of renal disease Prostate disease Gastric reflux CPAP (continuous positive airway pressure) dependence Sleep apnea Shortness of breath on exertion History of echocardiogram History of stress test History of CHF (congestive heart failure) Cardiology follow-up encounter History of atrial fibrillation Neuropathy Multiple thyroid nodules Microalbuminuria Thyroid nodule Double vision Non-proliferative diabetic retinopathy KIANNA treated with BiPAP Vertigo Congestive heart failure (CHF) Low testosterone Carotid stenosis High cholesterol Vision loss of right eye Vision loss of left eye Anemia Non-smoker Atrial fibrillation Hypertension Paroxysmal atrial fibrillation Polyneuropathy due to type 2 diabetes mellitus History of non-ST elevation myocardial infarction (NSTEMI) (03/28/20) TIA (transient ischemic attack) (2019) Hodgkin disease GERD (gastroesophageal reflux disease) BPH (benign prostatic hyperplasia) Anxiety and depression Morbid obesity with BMI of 45.0-49.9, adult Nephrolithiasis Diabetes mellitus, type II Home Medications ?Medication ?Instructions ?Recorded ?Last Taken ?Type tamsulosin 0.4 mg capsule 0.4 mg PO DAILY prostate 09/08/15 09/26/24 History duloxetine 60 mg capsule,delayed 60 mg PO DAILY depression 04/17/18 09/26/24 History release (Cymbalta) 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,hide trimmer,cont #1 ea 04/27/21 Unknown Rx (Dexcom G6 Superintendent Measurement) atorvastatin 80 mg tablet (Lipitor) 80 mg PO QHS cholesterol 09/04/21 09/25/24 History 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 transmitter (Dexcom #1 ea 12/29/21 Unknown Rx G6 Transmitter device) infusion set for insulin pump 10/08/22 Unknown History insulin pump controller 10/08/22 Unknown History 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 sensor (Dexcom G6 #1 ea 02/25/23 Unknown Rx Sensor device) insulin regular hum U-500 conc 500 75 unit (0.15 mL) continuous 11/11/23 09/26/24 Rx unit/mL subcutaneous soln (Humulin subcutaneous infusion DAILY blood R U-500 (Concentrated) Insulin) sugar #20 mL ferrous sulfate 325 mg (65 mg 325 mg PO DAILY anemia 03/02/24 09/26/24 History iron) tablet (Feosol) amlodipine 5 mg tablet 5 mg PO QDAY blood pressure 03/13/24 09/26/24 History aspirin 325 mg tablet 325 mg PO DAILY heart health 03/13/24 09/26/24 History metoprolol succinate 100 mg 100 mg PO DAILY heart #90 tabs 03/27/24 09/26/24 Rx tablet,extended release 24 hr lisinopril 40 mg tablet 40 mg PO DAILY blood pressure 04/12/24 09/26/24 History levothyroxine 112 mcg tablet 112 mcg PO DAILY thyroid 04/24/24 09/26/24 History ticagrelor 90 mg tablet (Brilinta) 90 mg PO BID 05/21/24 09/26/24 History furosemide 40 mg tablet (Lasix) 40 mg PO BID diuretic #270 tabs 06/23/24 09/26/24 Rx pantoprazole 40 mg tablet,delayed 40 mg PO BID acid reflux #60 tabs 07/22/24 09/26/24 Rx release (Protonix) empagliflozin 25 mg tablet 25 mg PO DAILY diabetes #30 tabs 08/12/24 09/26/24 Rx (Jardiance) apixaban 5 mg tablet (Eliquis) 5 mg PO BID blood thinner #180 tabs 08/31/24 09/26/24 Rx buspirone 10 mg tablet 10 mg PO .1-3 times daily Anxiety 09/16/24 09/26/24 History oxycodone-acetaminophen 5 mg-325 1 tab PO TID PRN pain 09/16/24 09/25/24 History mg tablet prednisone 5 mg tablet See Rx Instructions PO .COMPLEX 09/16/24 09/26/24 History fenofibrate micronized 134 mg 134 mg PO QHS 09/26/24 09/25/24 History capsule Allergy/AdvReac Type Severity Reaction Status Date / Time metoclopramide HCl (From Allergy Severe Anaphylaxis Verified 09/16/24 10:05 Reglan) Family History Brother Heart disease Mother CVA (cerebral vascular accident) Hypertension Rheumatoid arthritis Father Diabetes Other Alcohol abuse ulcer disease Surgical History History of cardiac catheterization History of lymph node excision History of left heart catheterization (2009) Hx of nephrolithotomy with removal of calculi History of thoracentesis (2015) Social History household members: spouse and none Smoking Status: Never smoker Electronic Cigarette Use: not used second hand exposure: No alcohol intake: never substance use type: does not use what type of physical activity do you participate in: none ROS ROS Narrative General: Denies fever/chills HENT: Had a bit of a right sided headache yesterday that is resolved, denies stuffy nose, denies sore throat EYES: Denies changes in vision Resp: Some cough with shortness of breath which is presently being worked up Cardiac: Denies chest pain GI: Denies abdominal pain, denies changes in bowel, denies nausea/vomiting : Denies changes in urination Extremity: Denies swelling MSK: Had some left-sided weakness, virtually resolved Neuro: Denies any numbness/tingling currently, this is resolved Heme: Denies any bleeding or bruising Skin: Denies rashes Psychiatric: No complaints voiced Vital Signs Vital Signs Vital Signs: 09/26/24 15:29 09/26/24 15:39 09/26/24 15:41 Temperature 97.9 F Temperature Source Oral Pulse Rate 84 78 Respiratory Rate 18 25 H Blood Pressure 133/64 H 133/64 H Blood Pressure Mean 87 87 Pulse Ox 97 95 Oxygen Delivery Method Nasal Cannula Nasal Cannula Nasal Cannula Oxygen Flow Rate (L/min) 4 4 4 09/26/24 16:00 09/26/24 16:09 09/26/24 16:30 Temperature Temperature Source Pulse Rate 79 91 79 Respiratory Rate 26 H 23 H 26 H Blood Pressure 146/64 H 134/104 H 146/73 H Blood Pressure Mean 88 114 97 Pulse Ox 96 Oxygen Delivery Method Nasal Cannula Oxygen Flow Rate (L/min) 3 09/26/24 17:19 09/26/24 17:19 09/26/24 17:19 Temperature Temperature Source Pulse Rate 76 73 Respiratory Rate 26 H 19 H Blood Pressure 126/50 H 126/50 H 126/50 H Blood Pressure Mean 72 72 72 Pulse Ox 94 97 Oxygen Delivery Method Nasal Cannula Oxygen Flow Rate (L/min) 4 09/26/24 17:30 09/26/24 17:49 09/26/24 18:00 Temperature Temperature Source Pulse Rate Respiratory Rate Blood Pressure 133/64 H Blood Pressure Mean 84 Pulse Ox 96 91 Oxygen Delivery Method Oxygen Flow Rate (L/min) 09/26/24 18:10 Temperature 97.8 F Temperature Source Pulse Rate 74 Respiratory Rate 26 H Blood Pressure 133/64 H Blood Pressure Mean 87 Pulse Ox 94 Oxygen Delivery Method Oxygen Flow Rate (L/min) Physical Exam Narrative General: Alert, oriented, no apparent distress HEENT: Atraumatic, normocephalic Eyes: Anicteric, normal conjunctiva, extraocular movements intact, pupils equal Neck: Supple Respiratory: Diminished at the bases in part due to habitus, normal respiratory effort Cardiovascular: Regular rate and rhythm GI: Soft, nontender, nondistended Extremities: No edema Musculoskeletal: Strength 5+ out of 5 in right upper extremity, 5 out of 5 left upper extremity, 5+ out of 5 right lower extremity, 5 out of 5 left lower extremity Neuro: No overt focal neurological deficits, cranial nerves II through XII intact, [id number] with a little difficulty in the left hand but ultimately able to make it to finger, no difficulty on the right, reports sensation feels the same on both sides Skin: No rashes appreciated Psych: Cooperative Results Lab / Micro Data 09/26/24 15:40 09/26/24 15:40 Labs: Laboratory Results - last 24 hr 09/26/24 15:40: WBC 14.0 H, RBC 3.79 L, Hgb 9.1 L, Hct 30.0 L, MCV 79.2 L, MCH 24.0 L, MCHC 30.3 L, RDW Std Deviation 50.9 H, RDW Coeff of Gavi 17.9 H, Plt Count 237, MPV 10.4, Immature Gran % (Auto) 0.800, Neut % (Auto) 85.3 H, Lymph % (Auto) 4.2 L, [place] % (Auto) 8.7, Eos % (Auto) 0.6, Baso % (Auto) 0.4, Absolute Neuts (auto) 11.9 H, Absolute Lymphs (auto) 0.58 L, Nucleated RBC % 0, PT 13.1, INR 1.0, APTT 20.8 L, Sodium 138, Potassium 4.2, Chloride 100, Carbon Dioxide 22.9, Anion Gap 15, BUN 31 H, Creatinine 1.26 H, Est GFR (MDRD) Non-Af 65, BUN/Creatinine Ratio 24.6 H, Glucose 246 H, Calcium 9.0, Troponin T High Sens 47 H Imaging Radiology Impression Brain CT 09/26/24 15:39 IMPRESSION: No acute intracranial finding. Chronic microvascular ischemic changes and age-related changes as described. Dr. Newberry discussed these findings via telephone with Dr. Avitia at 4:36 pm on 09/26/24. Reading Location: [id number] Assessment & Plan Assessment/Plan (1) Acute CVA (cerebrovascular accident): PLAN: Plan # Left-sided paresthesias, weakness, facial droop -Last known well 09/25 around 2 PM, symptoms have almost completely resolved -Admit to tele -CT head w/ no acute changes -CTA head and neck demonstrated progression to now complete occlusion of the M1 segment of the right MCA with threadlike distal reconstitution most compatible with acute/subacute occlusion with unchanged occlusion of left V2 and V3 vertebral artery segments with retrograde filling of the left V4 and incidentally noted groundglass opacities in the lung and central tracheal secretions -Patient was evaluated by [facility] early in 2024 and intervention for his carotid stenosis was not recommended at that time and his rate MCA near occlusion was noted with plans for medical management -MRI ordered -NIH q2hr - Patient resumed on his aspirin, and Brilinta -Echo ordered -PT/OT/Speech eval -Teleneuro consult ordered-spoke with teleneurology after CTA findings were available, given symptoms greater than 24 hours ago and patient's symptoms significantly improved there is no intervention recommended. Reviewed case, vitals, labs, history, neuroexam, imaging with teleneurology and it was recommended to resume patient's aspirin and Brilinta but hold Eliquis at this time, proceed with the MRI and is recommended that neurochecks were Q2 and patient be monitored in stepdown status and if any changes or fluctuations in neurostatus to contact [facility] as patient will likely need transferred. It was also recommended to keep patient's blood pressure over 120. He was advised that it was reasonable to keep patient in our institution given no acute intervention necessary that it could be offered to the patient if he would prefer to be transferred. When evaluated patient at bedside, told him about findings and discussed transfer versus staying at [facility], patient's neuroexam is exactly the same he reports overall he feels well, patient would like to stay at [facility] and understands that if he were to have any neurochanges or concerns he would need to be transferred and he is okay with that and verbalizes his understanding - Will decrease metoprolol and hold amlodipine and lisinopril given recommendations to avoid blood pressures less than 120, can add back as tolerated or as neurology advises # History of CVA - Patient had recurrent TIA/CVA symptoms despite being on double therapy so he has been on triple therapy and following with vascular, these medications were held for lung biopsy, these were resumed last night - It was recommended at this time to only continue aspirin and Brilinta so these have been restarted, other management as above # Elevated troponin -Troponin 47, no chest pain reported, suspect secondary to patient's underlying multiple comorbid conditions in addition to acute stress -Will be getting echo as above # Chronic hypoxic respiratory failure on home O2 - Being worked up at - Continue home medications -CTA noted some groundglass opacities in the lungs and some tracheal secretions and correlate if there could be component of aspiration -Incentive spirometer -Patient to be evaluated by speech therapy - Continued prednisone from patient's home med list #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 -Glucose checks and sliding scale insulin - Patient does have insulin pump, patient usually uses this while admitted, patient awake alert and oriented, able to use his insulin pump #Chronic BPH with obstruction -Continue home medications #Depression/anxiety -Continue home medications #Hypothyroidism -Continue Synthroid #Hypertension - Continue home antihypertensives #KIANNA - Has primarily been using oxygen at home overnight and does not been using his NIPPV, asked if he would like to wear it here and he was unsure, advised to let us know if he would be amenable to wearing it while inpatient # History of heart failure with preserved ejection fraction not in exacerbation -Daily weights, I's and O's -Monitor volume status - Holding Lasix, he was initially advised to give fluids but when discussing patient's heart history he was advised at least to avoid hypovolemia, ultimately was decided to hold Lasix and monitor volume status #GERD -Continue PPI #DVT ppx: Patient on Eliquis Xiao Berrios MD Time spent in the patient's overall evaluation, decision-making process, review of diagnostic data, adjustment of management, discussion with other providers, nursing and ancillary staff involved in patient's care documentation, 100 Minutes Charges/Coding Visit Charges Inpatient E&M: 40984 Init Hosp L3
--- OUTSIDE RECORDS SUMMARY | 2024-09-26 19:04 | XMS RPT_ITS | CCD ---
Author Organization [facility] Care Team Providers Care [employer] Groom Name Role Phone Radha Khan Primary Care Provider [phone] Dr. Radha Khan Primary Care Provider Dr. Radha Khan Referring Provider PITO Gerardo Attending Provider Dr. Tia Boyd Attending Provider Dr. Radha Khan Other Provider Dr. Jonathon Salas Attending Provider Dr. Angel Avitia Emergency Provider [phone] Dr. Eleni Alfredo Admit Provider Dr. Eleni Alfredo Attending Provider Dr. Eleni Alfredo Other Provider Dr. Sumanth Hanna Attending Provider Dr. Krunal Pate Attending Provider Dr. Krunal Pate Other Provider PITO Chin NP Attending Provider Dr. Radha Khan Primary Care Provider Dr. Radha Khan Referring Provider PITO Sky NP Attending Provider PITO Gerardo Attending Provider Dr. Jonathon Salas Attending Provider Dr. Jonathon Slaas Other Provider Dr. Fran Rodriguez Attending Provider Dr. Radha Khan Primary Care Provider Dr. Radha Khan Referring Provider Dr. Jonathon Salas Referring Provider Roof ENERGY ADVISOR, ENERGY ADVISOR-Surinder Jackson Attending Provider Dr. Radha Khan Primary Care Provider Dr. Radha Khan Referring Provider PITO Gerardo Attending Provider Roof ENERGY ADVISOR, ENERGY ADVISOR-Surinder Jackson Attending Provider Vallejo ENERGY ADVISOR, ENERGY ADVISOR-Surinder Childress Attending Provider Dr. Radha Khan Primary [...] Provider Dr. Karol Rushing Attending Provider Roof ENERGY ADVISORPITO Attending Provider Dr. Toni Vann Attending Provider Dr. Karol Rushing Other Provider Sarika PA, PA-C Shanti Referring Provider Sarika PA, PA-C Shanti Other Provider Dr. Radha Khan S Primary Care Provider Dr. Radha Khan Referring Provider PITO Gerardo Attending Provider Dr. Radha Khan Primary Care Provider Dr. Radha Khan Referring Provider Dr. Karol Rushing Attending Provider Dr. Francois Valiente Attending Provider Dr. Radha Khan Primary Care Provider Dr. Radha Khan Referring Provider Roof ENERGY ADVISORPITO Attending Provider Dr. Karol Rushing Attending Provider Dr. Toni Vann Attending Provider Dr. Karol Rushing Other Provider Sarika PA, PA-C Shanti Referring Provider Sarika PA, PA-C Shanti Other Provider Dr. Francois Valiente Attending Provider Dr. Francois Valiente Referring Provider PITO Gerardo Attending Provider Dr. Radha Khan Primary Care Provider Dr. Radha Khan Referring Provider [facility] PITO ANG Attending Provider Dr. Ochoa Dobbs Attending Provider BILL MCRAE, DR GARCIA Primary Care Physician Radha Khan Primary Care Provider [phone] CHITRA BACKREST ASSEMBLER-SLOT FLOORPERSON, CHITO Nuñez Referring Unavailable GALINDO-GABRIELA BACKREST ASSEMBLER-SLOT FLOORPERSON, CHITO Nuñez Attending Unavailable GALINDO-GABRIELA BACKREST ASSEMBLER-SLOT FLOORPERSON, CHITO Nuñez Admitting Unavailable ERNESTO MCRAE, AMBER Consulting Unavailable DR RADHA KHAN MD Primary Care Unavailable Juventino MCRAE, Suzy Unavailable MEY LOYA Referring Unavailable JOLLIFF, RADHA Primary Care Unavailable DOMINIC FLEMING Referring Unavailable JOLLIFF, RADHA Primary Care Unavailable JEMMA STALLWORTHA Surinder Attending Unavailabl e VENIZELOS, OZIEL Consulting Unavailable JEMMA STALLWORTHA Surinder Admitting Unavailabl e VENIZELOS, OZIEL Attending Unavailable VENIZELOS, OZIEL Referring Unavailable JOLLIFF, RADHA Primary Care Unavailable SUZY JAUREGUI Attending Unavailable JUVENTINO SUZY Referring Unavailable JOLLIFF, RADHA Primary Care [...] MCRAE, Dr. Radha Mcmahon Primary Care Provider Isai DO, Dr. Rockwell Referring Provider Ungmeek DO, Dr. Rockwell Emergency Provider [phone] Bhavesh MCRAE, Dr. Denny Admit Provider Unavailable Bhavesh MCRAE, Dr. Denny Other Provider Unavailable Ryder MCRAE, Dr. Norwood Attending Provider Monico MCRAE, Dr. Hall Other Provider Katherine MCRAE, Dr. Mendez Other Provider Josue MCRAE, Dr. Holt Other Provider Michael PUTNAM, Dr. Peters Other Provider Brynn MCRAE, Dr. Eduin Duarte Other Provider [phone] Aneta MCRAE, Dr. Bermudez Other Provider Payton MCRAE, Dr. Taylor Other Provider [phone] Magdaleno MCRAE, Dr. Arnold Other Provider Robert MCRAE, Dr. Lopez Other Provider Javy MCRAE, Dr. Perdomo Other Provider [phone] Juan Diego Santoro MD Other Provider Jose MCRAE, Dr. Myles Other Provider [phone] Shobha Larios MD Other Provider Unavailabl adam Valentine MD, Dr. Amin Other Provider Gavi MCRAE, Dr. Gilliam Other Provider Sim MCRAE, Dr. Menchaca Other Provider Felice PUTNAM, Dr. Lugo Other Provider [phone] Bernice MCRAE, Dr. Huber Other Provider Kae MCRAE, Dr. Gary Other Provider Dr. Thang Garcia DO Other Provider Hiro MCRAE, Dr. Reyes Other Provider Horacio MCRAE, Dr. Hernandez Other Provider Dr. Cuco Soler MD Other Provider [phone] Michael PUTNAM, Dr. Peters Attending Provider Bill MCRAE, Dr. Radha Mcmahon Referring Provider [phone] Akin ENERGY ADVISOR-C, Coreen Attending Provider Bbo ENERGY ADVISOR-C, Chen Nuñez Attending Provider Bill MCRAE, Dr. Radha Mcmahon Attending Provider [phone] Tarun PUTNAM, Dr. Sanchez Referring Provider [phone] Tarun PUTNAM, Dr. Sanchez Emergency Provider Arabella MCRAE, Dr. Cookie Ho Admit Provider Arabella MCRAE, Dr. Cookie Ho Other Provider Yissel MCRAE, Edmund Other Provider Unavailable Deb MCRAE, Dr. Foster Other Provider [phone] Amy Dumont MD Other Provider Unavailable Dr. Bethany Velasco DO Other Provider [phone] Loy MCRAE, Dr. Ayala Other Provider [phone] Yani MCRAE, Dr. Mondragon Other Provider [phone] Wm MCRAE, Dr. Acharya Other Provider Tejas MCRAE, Dr. Ruano Other Provider [phone] Dr. Julius Flores MD Other Provider Nitish MCRAE, Dr. Ibarra Other Provider [phone] Jennifer Toledo MD Other Provider Maria Elena MCRAE, Dr. Shepherd Other Provider Bharathi MCRAE, Dr. Cid Other Provider Serena MCRAE, Dr. Martinez Other Provider Aminata MCRAE, Dr. Indigo Knapp Other Provider Palmer MCRAE, Dr. Valderrama Other Provider Una MCRAE, Dr. Mccloud Other Provider Darci MCRAE, Dr. Gauthier Other Provider Esmer MCRAE, Dr. Guillen Other Provider Unavailable Osvaldo MCRAE, Ryan Other Provider Unavailable Dr. Ochoa Johnson DO Attending Provider Arabella MCRAE, Dr. Cookie Ho Attending Provider Soo MCRAE, Dr. Muñoz Attending Provider Soo MCRAE, Dr. Muñoz Referring Provider Jacques MCRAE, Dr. Julio Attending Provider Dilia MCRAE, Dr. Packer Attending Provider Tamika MCRAE, Dr. Veras Attending Provider Dr. Rito Lundberg MD Referring Provider Lydia Jiménez Attending Provider Lydia Jiménez Referring Provider Bob ANG-C, Chen Nuñez Referring Provider Jacques MCRAE, Sumanth Attending Provider Unavailable Brandt Winter MD Primary Care Provider Khadar Salguero Attending Provider Erik PA Khadar Referring Provider Bill MCRAE, Dr. Garcia S Primary Care Provider Bill MCRAE, Dr. Garcia S Primary Care Provider Bill MCRAE, Dr. Radha Mcmahon Referring Provider Bill MCRAE, Dr. Radha Mcmahon Primary Care Provider Bill MCRAE, Dr. Radha Mcmahon Referring Provider Lydia Jiménez Attending Provider [phone] Lydia Jiménez Referring Provider Dr. Sumanth Hanna MD Attending Provider Bob ANG-CChen Attending Provider Bob ANG-ChCen Referring Provider Soo MCRAE, Dr. Muñoz Attending Provider Dr. Toni Vann MD Referring Provider Sumanth Hanna MD Attending Provider Unavailable Brandt Winter MD Primary Care Provider Khadar Salguero Attending Provider Khadar Salguero Referring Provider Akin ANG-CCoreen Attending Provider Moy MCRAE, Brandt Referring Provider Jolliff, Radha S Primary Care Unavailable PrasanthSameer Attending Unavailable Sameer Rader Referring Unavailable Roof ENERGY ADVISOR, Oren H Attending Unavailable Roof ENERGY ADVISOR, Oren H Referring Unavailable Jolliff, Radah S Primary Care Unavailable Jolliff, Radha S Referring Unavailable Jolliff, Radha S Attending Unavailable Jolliff, Radha S Primary Care Unavailable Jolliff, Radha S Primary Care Unavailable Jolliff, Radha S Referring Unavailable Yoni ENERGY ADVISOR, Fior Attending Unavailable Fabiolaiff, Radha S Primary Care Unavailable Toni Vann Referring Unavailable Toni Vann Attending Unavailable Bethany Shelley Attending Unavailable Jolliff, Radha S Primary Care Unavailable Jolliff, Radha S Referring Unavailable Moy, Chalon Primary Care Unavailable Jolliff, Radha S Referring Unavailable BaddoToni eden Attending Unavailable Jolliff, Radha S Referring Unavailable Moy, Chalon Primary Care Unavailable Toni Vann Attending Unavailable Xiao Berrios Consulting Unavailable Jolliff, Radha S Primary Care Unavailable Fran Rodriguez Attending Unavailable Xiao Berrios Admitting Unavailable Krunal Pate Referring Unavailable Rafael Marc Consulting Unavailable Andera Murphy Consulting Unavailable Jonathon Salas Consulting Unavailable Fran Rodriguez Consulting Unavailable Eduin Swain Consulting Unavailable Aidan Cornell Consulting Unavailable Payton, Brandon Consulting Unavailable Catalina Dolan Consulting Unavailab francisco Jones, John Consulting Unavailable Conor Palafox Consulting Unavailable Shameka Garcia Consulting Unavailable Shobha Larios Consulting Unavailable Robert Valentinem Consulting Unavailable Mane Gatica Consulting Unavailable Sim, Nikolai Consulting Unavailable Felice, Parish Consulting Unavailable Cecile Queen Consulting Unavailable Thang Garcia Consulting Unavailable Eric Bosch Consulting Unavailable David Leonard Consulting Unavailable Krunal Pate Consulting Unavailable Xiao Berrios Consulting Unavailable Xiao Berrios Admitting Unavailable Xiao Berrios Attending Unavailable Jolliff, Radha S Primary Care Unavailable Jolliff, Radha S Referring Unavailable Jolliff, Radha S Primary Care Unavailable Ldyia Jiménez Attending Unavail able Toni Vann Referring [...] Care Unavailable Xiao Berrios Attending Unavailable Adeli, Amirickey Consulting Unavailable Hinduja, Amy Consulting Unavailable Rod, Bethany Consulting Unavailable Zha, Lucy Consulting Unavailable Yani, Giancarlo Consulting Unavailable Wm, Patrizia Consulting Unavailable Alden Lazaro Consulting Unavailable Julius Flores Consulting Unavailable Fred Talbert Consulting Unavailable Jennifer Toledo Consulting Unavailable Joao Arredondo Consulting Unavailable Palak Garvin Consulting Unavailable Ridjuan, Michelle Consulting Unavailable Aminata, Ofeliad Ra Consulting UnavailLavelle Gillespie Consulting Unavailable [facility] Consulting Unavailable Abrahan Bejarano Consulting Unavailable Mindy Benítez Consulting Unavailable Ryan Riley Consulting Unavailable Ochoa Dobbs Consulting Unavailable Eduin Umaña Consulting Unavailable Tia Boyd Attending Unavailstuart Khan, Radha S Primary Care Unavailable Toni Vann Referring Unavailable Toni Vann Attending Unavailable Jolliff, Radha S Primary Care Unavailable Jolliff, Radha S Referring Unavailable Jolliff, Radha S Primary Care Unavailable Coreen Gerardo Attending Unavailable Krunal Pate Attending Unavailable Jolliff, Radha S Primary Care Unavailable Eduin Ospina Consulting Unavailable Eduin Ospina Admitting Unavailable Isai, Katherinus Referring Unavailable Cuco Soler Attending Unavailable Rafael [...] Unavailable Asya ANG, Oren Jackson Attending Unavailable Asya ENERGY ADVISOROren Referring Unavailable Jolliff, Radha S Primary Care Unavailable Yoni ANG, Fior Attending Unavailable Fior Vallejo NP Referring Unavailable Chen Rojas Attending Unavailable Chen Rojas Referring Unavailable Jolliff, Radha S Primary Care Unavailable Jolliff, Radha S Primary Care Unavailable Yoni ENERGY ADVISOR, Fior Attending Unavailable Vallejo ENERGY ADVISOR, Fior Referring Unavailable Jolliff, Radha S Primary Care Unavailable Toni Vann [...] Jolliff, Radha S Primary Care Unavailable Roof SAV, Oren Jackson Attending Unavailable BaddourToni Referring Unavailable Roof ENERGY ADVISOROren Attending Unavailable Roof ENERGY ADVISOR, Oren Jackson Referring Unavailable Jolliff, Radha S Primary Care Unavailable Ochoa Johnson Attending Unavailable Edmund Dey Consulting Unavailable Daniel Mcneil Referring Unavailable Cookie Bell Admitting Unavailable Jolliff, Radha S Primary Care Unavailable AdeKristin xiao Consulting Unavailable Hindluisa, Amy Consulting Unavailable Rod Bethany Consulting Unavailable Loy Lucy Consulting Unavailable Giancarlo Lomeli Consulting Unavailable Patrizia Burk Consulting Unavailable Alden Lazaro Consulting Unavailable Julius [...] Attending Unavailable Moy, Chalon Primary Care Unavailable TuckasegeeOchoa baum Attending Unavailable Jolliff, Radha S Referring Unavailable Jolliff, Radha S Primary Care Unavailable Jolliff, Radha S Primary Care Unavailable Eduin Ospina Admitting Unavailable Cuco Soler Attending Unavailable Luli Alex Referring Unavailable Eduin Ospina Consulting Unavailable Harriet, Lamia Consulting Unavailable Hiro, Eric Consulting Unavailable Jonathon Salas Consulting Unavailable Payton, Brandon Consulting Unavailable Fran Rodriguez Consulting Unavailable John Jones Consulting Unavailable Dhesi, Parish Consulting Unavailable Sim, Nikolai Consulting Unavailable Thang Garcia Consulting Unavailable Shameka Garcia Consulting Unavailable Rafael Marc Consulting Unavailable Meme, Brennan Consulting Unavailable Cecile Queen Consulting Unavailable Abdirahman Pal Consulting Unavailable Catalina Dolan Consulting UnavailDavid Harrell Consulting Unavailable Mane Gatica Consulting Unavailable Aidan Cornell Consulting Unavailable Murphy, Andrea Consulting Unavailable Eduin Swain Consulting Unavailable Conor Palafox Consulting Unavailable Juan Diego Santoro Consulting Unavailable Cuco Soler Consulting Unavailable Fran Rodriguez Attending Unavailable Jolliff, Radha S Primary Care Unavailable Maria EurToni Referring Unavailable BaddourToni Attending Unavailable Jolliff, Radha S Primary Care Unavailable Jolliff, Radha S Referring Unavailable Asya ENERGY ADVISOR, Oren Jackson Attending Unavailable Jolliff, Radha S Referring Unavailable BaddourToni Attending Unavailable Jolliff, Radha S Primary Care Unavailable Jolliff, Radha S Primary Care Unavailable Vallejo ENERGY ADVISOR, Fior Referring Unavailable Vallejo ENERGY ADVISOR, Fior Attending Unavailable Jolliff, Radha S Referring Unavailable Ede Frost Attending Unavailable Jolliff, Radha S Primary Care Unavailable Xiao Berrios Consulting Unavailable Xiao Berrios Admitting Unavailable Jolliff, Radha S Primary Care Unavailable Krunal Pate Attending Unavailable Rafael Marc Consulting Unavailable Katherine Andrea Consulting Unavailable Jonathon Salas Consulting Unavailable Fran Rodriguez Consulting Unavailable Eduin Swain Consulting Unavailable Aidan Cornell Consulting Unavailable Brandon Cain Consulting Unavailable Catalina Dolan Consulting UnavailJohn Herrera Consulting Unavailable Conor Palafox Consulting Unavailable Shameka Garcia Consulting Unavailable Shobha Larios Consulting Unavailable Robert Valentinem Consulting Unavailable Donnell Gaticaan Consulting Unavailable Nikolai Montemayor Consulting Unavailable Parish Viveros Consulting Unavailable Cecile Queen Consulting Unavailable Thang Garcia Consulting Unavailable Eric Bosch Consulting Unavailable David Leonard Consulting Unavailable Jolliff, Radha S Primary Care Unavailable Jolliff, Radha S Referring Unavailable Vallejo ENERGY ADVISOR, Fior Attending Unavailable Jolliff, Radha S Referring Unavailable Coreen Gerardo Attending Unavailable Jolliff, Radha S Primary Care Unavailable Jolliff, Radha S Referring Unavailable Bethany Shelley Attending Unavailable Jolliff, Radha S Primary Care Unavailable Chen Rojas Attending Unavailable Jolliff, Radha S Referring Unavailable Jolliff, Radha S Primary Care Unavailable Eduin Ospina Attending Unavailable Jolliff, Radha S Primary Care Unavailable Fran Rodriguez Attending Unavailable Vallejo ENERGY ADVISOR, Fior Referring Unavailable Jolliff, Radha S Primary Care Unavailable Asya ENERGY ADVISOR, Oren H Attending Unavailable Jolliff, Radha S Primary Care Unavailable Asya ENERGY ADVISOROren Referring Unavailable Sumanth Hanna Attending Unavailable Edmund Dey Consulting Unavailable Eduin Umaña Admitting Unavailable de Eduin Landon Attending Unavailable Jolliff, Radha S Primary Care Unavailable Ochoa Mascorro Referring Unavailable Adeli, Amir Consulting Unavailable Hinduja, Amy Consulting Unavailable Rod, Betahny Consulting Unavailable Zha, Lucy Consulting Unavailable Yani, Giancarlo Consulting Unavailable WmPatrizia lang Consulting Unavailable Alden Lazaro Consulting Unavailable Julius Flores Consulting Unavailable Fred Talbert Consulting Unavailable Jennifer Toledo Consulting Unavailable Joao Arredondo Consulting Unavailable Palak Garvin Consulting Unavailable Michelle Lyons Consulting Unavailable Indigo Coates Consulting UnavailLavelle Gillespie Consulting Unavailable [facility] Consulting Unavailable Abrahan Bejarano Consulting Unavailable Mindy Benítez Consulting Unavailable Ryan Riley Consulting Unavailable Ochoa Dbobs Consulting Unavailable Eduin Umaña Consulting Unavailable Xiao Berrios Consulting Unavailable Jolliff, Radha S Primary Care Unavailable Yoni ENERGY ADVISOR, Fior Referring Unavailable Yoni ENERGY ADVISORFior Attending Unavailable Armin Fermin Attending Unavailable Jolliff, Radha S Primary Care Unavailable Jolliff, Radha S Primary Care Unavailable Urban Garcia Attending Unavailable Lydia Jiménez Referring Unavail able Lydia Jiménez Attending Unavail able Jolliff, Radha S Primary Care Unavailable Rito Lundberg Attending Unavailable Jolliff, Radha S Primary Care Unavailable Hien Lundbergour Referring Unavailable Mireya Garcia Attending Unavailable JaylennasMireya yu Referring Unavailable Jolliff, Radha S Primary Care [...] Garvin Consulting Unavailable Michelle Lyons Consulting Unavailable Aminata, Ofeliad Ra Consulting UnavailLavelle Gillespie Consulting Unavailable [facility] Consulting Unavailable Abrahan Bejarano Consulting Unavailable Mindy Benítez Consulting Unavailable Ryan Riley Consulting Unavailable Ochoa Dobbs Consulting Unavailable Eduin Umaña Consulting Unavailable Xiao Berrios Consulting Unavailable Eduin Umaña Referring Unavailable Eduin Umaña Consulting Unavailable Eduin Umaña Admitting Unavailable Eduin Umaña Attending Unavailable Jolliff, Radha S Primary Care Unavailable JosteveeriOchoa Attending Unavailable Jopperi, Ochoa Consulting Unavailable Jolliff, Radha S Primary Care Unavailable Fran Rodriguez Attending Unavailable Vallejo ENERGY ADVISOR, Fior Consulting Unavailable Vallejo ENERGY ADVISOR, Fior Referring Unavailable Roof ENERGY ADVISOR, Oren H Referring Unavailable Jacques, Adel Attending Unavailable Jolliff, Radha S Primary Care Unavailable Roof ENERGY ADVISOR, Oren H Consulting Unavailable Jolliff, Radha S Primary Care Unavailable Jolliff, Radha S Referring Unavailable Friend, Ede Attending Unavailable Friend, Ede Consulting Unavailable Jolliff, Radha S Primary Care Unavailable rFan Rodriguez Attending Unavailable Vallejo ENERGY ADVISOR, Fior Consulting Unavailable Vallejo ENERGY ADVISOR, Fior Referring Unavailable Jolliff, Radha S Referring Unavailable Ochoa Dobbs Attending Unavailable Jolliff, Radha S Primary Care Unavailable Toni Vann Attending Unavailable Toni Vann Referring Unavailable Jolliff, Radha S Primary Care Unavailable Jolliff, Radha S Referring Unavailable Jacques, Sumanth Attending Unavailable Jolliff, Radha S Primary Care [...] Care Unavailable Jolliff, Radha S Referring Unavailable Atanasov, Mireya Attending Unavailable Jolliff, Radha S Primary [...] Umaña Consulting Unavailable Eduin Umaña Admitting Unavailable Alex Ochoa Attending Unavailable Jolliff, Radha S Primary Care Unavailable NEREIDA, MAROUN Attending Unavailable NEREIDA, MAROUN Attending Unavailable JOLLIFF, RADHA JOSHUA Primary Care Unavailable NEREIDA, MAROUN Referring Unavailable JOLLIFF, RADHA JOSHUA Primary Care Unavailable NEREIDA, MAROUN Attending Unavailable JOLLIFF, RADHA JOSHUA Primary Care Unavailable BRAHMANDAM, SRUTI Attending Unavailable BRAHMANDAM, SRUTI Referring Unavailable JOLLIFF, RADHA JOSHUA Primary Care Unavailable BRAHMANDAM, SRUTI Referring Unavailable JOLLIFF, RADHA JOSHUA Primary Care Unavailable Dr. Radha Khan MD Primary Care Provider Dr. Radha Khan MD Referring Provider Dr. Angel Avitia MD Referring Provider Dr. Angel Avitia MD Emergency Provider Dr. Xiao Berrios MD Admit Provider Dr. Xiao Berrios MD Attending Provider [phone] Allergies Allergy Classification Reported Allergen(s) Allergy Type Date of Onset Reaction(s) Facility DOPamine Antagonists (1 source) Metoclopramide; Translations: [metoclopramide] Drug Allergy [facility] (20 sources) Metoclopramide Drug Allergy 6 Shortness of Breath [facility] (20 sources) Metoclopramide; Translations: [METOCLOPRAMIDE] Drug Allergy 6 Anaphylaxis, Shortness of breath [facility] (1 source) Metoclopramide Drug Allergy 5 [facility] Repository Medications Current Medications Medication Drug Class(es) Dates Sig (Normalized) Sig (Original) acetaminophen 325 mg / oxyCODONE hydrochloride 5 mg oral tablet (20 sources) Opioid Agonist Start: 09-16-2024 Oxycodone-Acetamin ophen 5-325 mg tablet Active 1 {tbl} PO THREE TIMES A DAY as needed for pain 0 September 16, 2024 12:00am Start: 04-22-2024 End: 04-24-2024 Oxycodone-Acetaminophen 5-32 5 mg tablet Discontinued 1 {tbl} PO THREE TIMES A DAY as needed 0 April 22, 2024 1:00am April 24, 2024 [...] as needed for severe pain (7-10). Active [id number] 200 actuat albuterol 0.09 mg/actuat metered dose [...] needed for shortness of breath or wheezing 18 February 06, 2024 1:00am April 30, 2024 2:31pm Start: 02-06-2024 End: 04-30-2024 Start: 10-15-2018 End: 06-26-2019 Albuterol Sulfate 1 INHALER inhaler Discontinued 2 NMA INHALATION EVERY 4 HOURS NEEDED as needed for Wheezing 1 0 October 15, 2018 12:00am June 26, 2019 [...] mg PO daily March 13, 2024 1:00am blood pressure Start: 02-27-2023 End: 04-25-2023 take 1 tablet [...] mg tablet Discontinued 5 mg PO DAILY 28 02September 12, 2021 12:00am January 25, 2022 9:55am This is a dose increase Start: 09-07-2021 End: 09-12-2021 take 1 tablet by mouth once daily Amlodipine 2.5 mg tablet Discontinued 2.5 mg PO DAILY 28 02September 07, 2021 2:48pm September 12, 2021 9:17am [...] AT BEDTIME September 04, 2021 6:28am cholesterol cholesterol augmented betamethasone 0.5 mg/ml topical lotion (20 sources) Corticosteroid Start: 08-13-2023 betamethasone, augmented, (Diprolene) 0.05 % lotion APPLY TO RASH ON THE TRUNK OR SCALP 1-2 TIMES DAILY NEEDED 08/13/2023 Active bismuth subsalicylate 262 mg chewable tablet (15 sources) Bismuth Start: 04-02-2024 take 2 tablets [...] PO THREE TIMES A DAY 84 14 0 April 02, 2024 1:00am April 15, 2024 1:00am April 16, 2024 1:12am H. Pylori do not exceed 16 tabs per 24 hrs Blood-Glucose Meter,Continuo us ([employer] G6 Picture Frames Inspector) misc (20 sources) Start: 07-26-2020 Blood-Glucose Meter,Continuous ([employer] G6 Picture Frames Inspector) misc Active 0 .ROUTE .MEDSUPPLY 1 July 26, 2020 12:36pm As directed Start: 07-26-2020 Blood-Glucose Meter,Continuous ([employer] G6 Picture Frames Inspector) misc Active 0 .ROUTE .MEDSUPPLY July 25, 2020 11:00pm As directed Start: 07-26-2020 Blood-Glucose Meter,Continuous ([employer] G6 Picture Frames Inspector) misc Active 0 .ROUTE .MEDSUPPLY 1 July 26, 2020 12:00am As directed Blood-Glucose Sensor ([employer] G6 Sensor) device (20 sources) Start: 02-25-2023 Blood-Glucose Sensor ([employer] G6 Sensor) device Active 0 .ROUTE .MEDSUPPLY 1 February 25, 2023 12:46pm Diabetes mellitus 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 with hyperglycemia terminologist (current) use of insulin dm As directed Start: 02-25-2023 Blood-Glucose Sensor ([employer] G6 Sensor) device Active 0 .ROUTE .MEDSUPPLY February 25, 2023 12:46pm As directed Start: 02-25-2023 Blood-Glucose Sensor ([employer]com G6 Sensor) device Active 0 .ROUTE .MEDSUPPLY February 25, 2023 11:46am As directed Start: 12-29-2021 End: 02-25-2023 Blood-Glucose Sensor ([employer]excom G6 Sensor) device Discontinued 0 .ROUTE .MEDSUPPLY 3 December 29, 2021 12:58pm February 25, 2023 12:47pm Diabetes mellitus 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 with hyperglycemia residential (current) use of insulin As directed Start: 12-29-2021 End: 02-25-2023 Blood-Glucose Sensor (Dexcom G6 Sensor) device Discontinued 0 .ROUTE .MEDSUPPLY December 29, 2021 12:58pm February 25, 2023 12:47pm As directed Start: 12-29-2021 End: 02-25-2023 Blood-Glucose Sensor (Dexcom G6 Sensor) device Discontinued 0 .ROUTE .MEDSUPPLY December 29, 2021 11:58am February 25, 2023 11:47am As directed Start: 12-29-2021 Blood-Glucose Sensor (Dexcom G6 Sensor) device Active 0 .ROUTE .MEDSUPPLY 3 December 29, 2021 12:58pm As directed Start: 12-29-2021 Blood-Glucose Sensor (Dexcom G6 Sensor) device Active 0 .ROUTE .MEDSUPPLY 3 December 29, 2021 11:58am As directed Start: 06-01-2021 End: 12-29-2021 Blood-Glucose Sensor (Dexcom G6 Sensor) device Discontinued 0 .ROUTE .MEDSUPPLY 3 June 01, 2021 2:53pm December 29, 2021 12:58pm Diabetes mellitus 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 with hyperglycemia residential (current) use of insulin As directed Start: 06-01-2021 End: 12-29-2021 Blood-Glucose [...] Sensor) device Discontinued 0 .ROUTE .MEDSUPPLY 3 February 02, 2021 1:53pm June 01, 2021 2:53pm Diabetes mellitus 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 with hyperglycemia terminologist (current) use of insulin As directed Start: 02-02-2021 End: 06-01-2021 Blood-Glucose [...] Sensor) device Discontinued 0 .ROUTE .MEDSUPPLY 3 July 26, 2020 12:00am February 02, 2021 1:58pm As directed Start: [...] Transmitter) device Active 0 .ROUTE .MEDSUPPLY 1 December 29, 2021 12:58pm dm As directed Start: 12-29-2021 Blood-Glucose Transmitter (Dexcom G6 Transmitter) device Active 0 .ROUTE .MEDSUPPLY December 29, 2021 12:58pm As directed Start: 12-29-2021 Blood-Glucose Transmitter (Dexcom G6 Transmitter) device Active 0 .ROUTE .MEDSUPPLY December 29, 2021 11:58am As directed Start: 06-01-2021 End: 12-29-2021 Blood-Glucose Transmitter (D excom G6 Transmitter) device Discontinued 0 .ROUTE .MEDSUPPLY 1 June 01, 2021 3:34pm December 29, 2021 12:58pm As directed Start: 06-01-2021 End: 12-29-2021 Blood-Glucose Transmitter (D excom G6 Transmitter) device Discontinued 0 .ROUTE .MEDSUPPLY 1 June 01, 2021 3:34pm December 29, 2021 12:58pm As directed Start: 06-01-2021 End: 12-29-2021 Blood-Glucose Transmitter (D excom G6 Transmitter) device Discontinued 0 .ROUTE .MEDSUPPLY 1 June 01, 2021 2:34pm December 29, 2021 [...] Transmitter) device Discontinued 0 .ROUTE .MEDSUPPLY 1 3 July 26, 2020 12:00am June 01, 2021 3:34pm As directed Start: 07-26-2020 End: 06-01-2021 Blood-Glucose Transmitter (D excom G6 Transmitter) device Discontinued 0 .ROUTE .MEDSUPPLY 1 July 25, 2020 11:00pm June 01, 2021 2:34pm As directed Start: 07-26-2020 End: 06-01-2021 Blood-Glucose Transmitter (D excom G6 Transmitter) device Discontinued 0 .ROUTE .MEDSUPPLY 1 July 26, 2020 12:00am June 01, 2021 3:34pm As directed Blood-Glucose,Picture Frames Inspector,Cont (Dexcom G6 Picture Frames Inspector) misc (3 sources) Start: 07-26-2020 Blood-Glucose,Picture Frames Inspector,Cont (Dexcom G6 Picture Frames Inspector) misc Active 0 .ROUTE .MEDSUPPLY 1 0 July 26, 2020 12:00am dm As directed Start: 07-26-2020 Blood-Glucose, Picture Frames Inspector,Cont (Dexcom G6 Picture Frames Inspector) misc Active 0 .ROUTE .MEDSUPPLY 1 July 26, 2020 12:00am As directed busPIRone hydrochloride 10 mg oral tablet (20 sources) Start: 04-17-2018 End: 09-16-2024 take 1 tablet by mouth once daily Buspirone 10 mg tablet Active 10 mg PO .1-3 times daily September 16, 2024 10:06am Anxiety pt states he usually takes 1 daily [...] hree times daily by mouth as necessary Continuous Glucose Sensor (Dexcom G6 Sensor) misc (18 sources) Start: 10-01-19 Continuous Glucose Sensor (Dexcom G6 Sensor) misc Dexcom G6 Sensor Mis, USE DIRECTED FOR CONTINUOUS BLOOD GLUCOSE MONITORING, CHANGE SENSOR EVERY 10 DAYS 10/01/2023 Active dapagliflozin 5 mg oral tablet (20 sources) Sodium-Glucose Cotransporter 2 Inhibitor Start: 10-06-19 End: 10-05-19 take 1 tablet by mouth once daily [...] mg PO DAILY April 17, 2018 1:00am depression Start: 11-09-2008 End: 01-08-2018 take 1 capsule by mouth once daily Duloxetine 30 MG capsule Discontinued 30 mg PO DAILY May 03, 2015 1:00am January 08, 2018 4:11pm Comment on above: Take one(1) tablet d aily by mouth empagliflozin 25 mg oral tablet (20 sources) Sodium-Glucose Cotransporter 2 Inhibitor Start: End: take 1 tablet by mouth once daily Empagliflozin (Jardiance) 25 mg tablet Active 25 mg PO DAILY 30 August 12, 2024 12:23pm Diabetes mellitus Microalbuminuria 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 with hyperglycemia terminologist (current) use of insulin Proteinuria, unspecified diabetes Start: 12-10-2022 End: 11-04-2023 take 1 tablet by mouth once daily Empagliflozin (Jardiance) 25 mg tablet Discontinued 25 mg PO DAILY 30 September 23, 2023 1:32pm November 04, 2023 9:27am Chronic kidney disease Microalbuminuria Diabetes mellitus Chronic kidney disease, unspecified Proteinuria, unspecified 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 without complications ergocalciferol 1.25 mg oral capsule (20 sources) Provitamin D2 Compound Start: 04-05-2023 ergocalciferol (Colleen min D-2) 1250 mcg (50,000 units) capsule Take 1 capsule (1,250 mcg) by mouth. 04/05/2023 Active Start: 04-05-2023 take 1 capsule by mo uth every week ergocalciferol (Vitamin D2) 1.25 MG (55362 UT) capsule Take 1 capsule by mouth 1 (one) time per week. 04/05/2023 Active fenofibrate 134 mg oral capsule (20 sources) Peroxisome Proliferator Receptor alpha Agonist Start: 08-19-2024 take 1 capsule by mouth once daily Fenofibrate Micronized 134 mg capsule Active 134 mg PO daily 30 August 19, 2024 12:00am Start: 08-17-2024 End: 08-19-2024 take 1 tablet by mouth once daily Fenofibrate 120 mg tablet Discontinued 120 mg PO daily 120 August 17, 2024 12:00am August 19, 2024 5:05pm Start: 10-14-2023 End: 08-17-2024 take 1 tablet by mouth once daily Fenofibrate 54 mg tablet Discontinued 54 mg PO DAILY 30 February 23, 2024 7:49pm August 17, 2024 12:01pm cholesterol ferrous sulfate 325 mg oral tablet (3 sources) Start: 03-02-2024 take 1 tablet by mouth once daily Ferrous Sulfate (Feosol) 325 mg (65 mg iron) tablet Active 325 mg PO DAILY March 02, 2024 1:00am anemia glipiZIDE 5 mg oral tablet (20 sources) [...] Set For Insulin Pum p infusion set (3 sources) Start: 10-08-2022 Infusion Set F or Insulin Pump infusion set Active 0 .Route October 08, 2022 12:00am diabetes As directed Start: 10-08-2022 Infusion Set F [...] 12:00am As directed Insulin Pump Controller misc (3 sources) Start: 10-08-2022 Insulin Pump C ontroller misc Active 0 .Route October 08, 2022 12:00am diabetes As directed Start: 10-08-2022 Insulin Pump C ontroller misc [...] Discontinued 75 U continuous subcutaneous infusion DAILY 20 5 December 04, 2022 7:47am November 11, 2023 [...] MG tablet Discontinued 750 mg PO DAILY 5 0 October 15, 2018 12:00am November 03, 2018 2:51pm levothyroxine sodium 0.112 mg oral tablet (20 sources) l-Thyroxine Start: 04-24-2024 take 1 tablet by mouth once daily Levothyroxine 112 mcg tablet Active 112 ug PO DAILY April 24, 2024 1:00am thyroid Start: 10-06-2023 End: 10-05-2023 levothyroxine (Synthroid, Le [...] 03, 2015 1:00am March 13, 2024 12:28pm thyroid Start: 05-03-2015 End: 04-24-2024 take 1 tablet by mouth once daily Levothyroxine 125 mcg tablet Discontinued 125 ug PO DAILY March 13, 2024 12:25pm April 24, 2024 8:20pm thyroid Start: 07-02-2005 take 1 tablet by ned [...] mg PO DAILY April 12, 2024 1:00am blood pressure Start: 11-13-2023 End: 04-07-2024 take 2 tablets by mouth once daily Lisinopril 20 mg tablet Discontinued 40 mg PO DAILY November 13, 2023 12:00am April 07, 2024 9:12am blood pressure Start: 10-17-2023 End: 04-07-2024 take 1 tablet by mouth once daily Lisinopril 20 mg tablet Discontinued 20 mg PO DAILY 90 0 October 17, 2023 2:08pm November 13, 2023 7:43pm Start: 10-17-2023 End: 10-17-2023 take 1 tablet by mouth once daily Lisinopril 40 mg tablet Discontinued 40 mg PO DAILY October 17, 2023 12:00am October 17, 2023 2:09pm Start: 01-08-2018 End: 01-23-2022 take 1 tablet by mouth once daily Lisinopril 40 mg tablet Discontinued 40 mg PO DAILY 90 April 03, 2021 12:41pm January 23, 2022 8:35am blood pressure Start: 01-08-2018 End: 08-01-2022 take 1 tablet by mouth twice daily Lisinopril 40 mg tablet Discontinued 40 mg PO TWICE A DAY 180 January 23, 2022 8:35am August 01, 2022 [...] 24 hr Active 100 mg PO DAILY 90 March 27, 2024 10:30am heart Start: 10-06-2023 End: 10-05-2023 metoprolol succinate XL [...] hr Discontinued 100 mg PO DAILY 90 3 January 15, 2023 12:42pm March 27, 2024 10:30am heart pantoprazole 40 mg delayed release oral tablet (20 sources) Proton Pump Inhibitor Start: 04-30-2024 End: 07-22-2024 take 1 tablet by mouth twice daily Pantoprazole (Protonix) 40 mg tablet,delayed release (DR/EC) Active 40 mg PO TWICE A DAY 60 3 July 22, 2024 7:56am acid reflux Start: 10-06-2023 End: 04-12-2024 take 1 tablet by mouth twice daily Pantoprazole (Protonix) 40 mg tablet,delayed release (DR/EC) Discontinued 40 mg PO TWICE A DAY 60 30 0 April 07, 2024 10:17am April 12, 2024 2:45pm acid reflux Start: 06-29-2005 End: 07-22-2024 take 1 tablet by mouth once daily Pantoprazole (Protonix) 40 mg tablet,delayed release (DR/EC) Discontinued 40 mg PO DAILY April 12, 2024 1:00am April 30, 2024 2:32pm acid reflux Comment on above: Take one(1) tablet d aily by mouth Pen Needle, Diabetic (20 sources) Start: 12-22-2020 Pen Needle, Diabetic Active 0 EACH .ROUTE .MEDSUPPLY 1200 December 22, 2020 2:22pm As directed Start: 12-22-2020 Pen Needle, Di abetic Active 0 EACH .ROUTE .MEDSUPPLY 1200 December 21, 2020 11:00pm As directed Start: 12-22-2020 Pen Needle, Di abetic Active 0 EACH .ROUTE .MEDSULY 1200 December 22, 2020 12:00am As directed predniSONE 5 mg oral tablet (20 sources) [...] mg tablet Discontinued 10 mg PO daily 20 June 10, 2024 7:07pm September 16, 2024 10:08am Start: 06-10-2024 take 0.5 tablet by m outh in the morning predniSONE (Deltasone) 20 mg tablet Take 0.5 tablets (10 mg) by mouth early in the morning.. 06/10/2024 Active Start: 04-15-2024 End: 06-10-2024 Prednisone 20 mg tablet Disc ontinued 20 mg PO daily 35 0 May 15, 2024 1:00am June 10, 2024 7:10pm Take 2 tablets daily for 7 days then 1.5 tablet daily for 7 days, then 1 tablet daily for 7 days, then 0.5 tablet for 7 days. tamsulosin hydrochloride 0.4 mg oral capsule (20 [...] mg PO DAILY September 08, 2015 12:00am prostate ticagrelor 90 mg oral tablet (19 sources) Start: 05-08-2024 End: 05-08-2025 take 1 tablet by mouth twice daily Ticagrelor (Brilinta) 90 mg tablet Active 90 mg PO TWICE A DAY May 21, 2024 1:00am traMADol hydrochloride 50 mg oral tablet (20 sources) Opioid Agonist Start: 12-10-2022 traMADol (Ultr am) 50 mg tablet Take 1 tablet (50 mg) by mouth. 12/10/2022 Active Completed/Discontinued Medications Medication Drug Class(es) Dates Sig (Normalized) Sig (Original) acetaminophen 325 mg / HYDROcodone bitartrate 5 mg oral tablet (20 sources) Opioid Agonist Start: 02-14-2023 End: 05-06-2024 HYDROcodone-acetami nophen ([place]) 5-325 MG tablet Take 1 tablet by mouth 2-3 times daily as needed for pain 02/14/2023 05/06/2024 Discontinued (Other) Start: 02-14-2023 End: 09-16-2024 Hydrocodone-Acetaminophen 5- 325 mg tablet Discontinued 1 {tbl} PO TWICE A DAY as needed for pain 0 February 14, 2023 1:00am September 16, 2024 10:07am Start: 02-14-2023 Start: 02-14-2023 take 1 tablet by ned twice daily Hydrocodone-Acetaminophen Active 1 TABLE T [...] not necessary. amoxicillin 500 mg oral capsule (6 sources) Penicillin-class Antibacterial Start: 04-02-2024 End: 04-15-2024 take 1 capsule by mouth twice daily Amoxicillin 500 mg capsule Discontinued 500 mg PO TWICE A DAY 28 14 0 April 02, 2024 1:00am April 15, 2024 1:00am April 15, 2024 4:21pm apixaban 5 mg oral tablet (20 sources) Factor Xa Inhibitor Start: 03-30-2020 End: 08-31-2024 take 1 tablet by mouth twice daily Apixaban (Eliquis) 5 mg tablet Discontinued 5 mg PO TWICE A DAY 180 3 July 21, 2023 12:45pm August 31, 2024 8:44am blood thinner aspirin 81 mg delayed release oral tablet [...] mg PO DAILY March 13, 2024 12:25pm [facility] Start: 10-06-2023 End: 10-05-2023 take 1 tablet [...] 81 MG tablet,chewable Discontinued 81 mg PO DAILY@0800 0 March 30, 2020 1:00am November 27, 2023 3:20pm [facility] Start: 11-03-2018 End: 03-30-2020 take 1 tablet by mouth once daily Aspirin (Rambo Aspirin) 325 mg tablet Discontinued 325 mg PO DAILY November 03, 2018 12:00am March 30, 2020 9:49am heart health Start: 10-15-2018 End: 11-03-2018 Aspirin 81 MG tablet,chewabl e Discontinued 325 mg PO DAILY@0800 October 15, 2018 1:44pm November 03, 2018 2:50pm Start: 10-15-2018 End: 11-03-2018 take 325 mg by mouth once daily Aspirin Discontinued 3 25 MG PO DAILY@0800 October 15, 2018 1:44pm November 03, 2018 2:50pm Start: 04-19-2018 End: 11-03-2018 take 1 tablet by mouth once daily Aspirin 81 MG Tab.Chew Discontinued 81 mg PO DAILY@0800 0 April 19, 2018 1:00am October 15, 2018 1:44pm [...] mg tablet Discontinued 100 mg PO DAILY 90 3 January 12, 2019 8:53am April 07, 2020 3:54pm blood pressure Comment on above: Take one(1) tablet d aily by mouth cholecalciferol 9.52 unt/ml / glucose 357 mg/ml oral gel (2 sources) Vitamin D Start: End: clarithromycin 500 mg oral tablet (6 sources) Macrolide Antimicrobial Start: End: take 1 tablet by mouth twice daily Clarithromycin 500 mg tablet Discontinued 500 mg PO TWICE A DAY 28 14 0 April 02, 2024 1:00am April 15, 2024 1:00am April 15, 2024 4:22pm clopidogrel 75 mg oral tablet (20 sources) [id number] Platelet Inhibitor Start: End: take 1 tablet by mouth once daily Clopidogrel (Plavix) 75 mg tablet Discontinued 75 mg PO DAILY 30 21 December 06, 2023 1:14pm May 21, 2024 11:50am anti platelet Start: 04-19-2018 End: 11-03-2018 take 1 tablet by mouth once daily Clopidogrel 75 MG tablet Discontinued 75 mg PO DAILY 18 0 April 19, 2018 1:00am November 03, 2018 2:51pm 12 hr dextromethorphan hydrobromide 60 mg / guaiFENesin 1200 mg extended release oral tablet (20 sources) Uncompetitive Y-nwszmn-N-aspartate Receptor Antagonist, Sigma-1 Agonist Start: 04-24-2024 End: 04-30-2024 Dextromethorphan-Guaifenesin 60-1,200 mg tablet extended release 12 hr Discontinued 1 {tbl} PO DAILY April 24, 2024 1:00am April 30, 2024 3:23pm cough Start: 04-15-2024 take 1 tablet by ned th every twelve hours Mucinex DM 60-1,200 mg tablet extended release 12 hr Take 1 tablet by mouth every 12 hours. 04/15/2024 Active Start: 04-15-2024 End: 04-24-2024 Dextromethorphan-Guaifenesin 60-1,200 mg tablet extended release 12 hr Discontinued 1 {tbl} PO TWICE A DAY 14 7 0 April 15, 2024 1:00am April 24, 2024 [...] release 24hr Discontinued 120 mg PO DAILY 90 3 April 25, 2023 1:00am May 02, 2023 [...] 22, 2020 2:52pm Start: 07-22-2020 End: 12-22-2020 furosemide 40 mg oral tablet (20 sources) Loop Diuretic Start: 06-20-2021 End: 06-23-2024 take 1 tablet by mouth twice daily Furosemide (Lasix) 40 mg tablet Discontinued 40 mg PO TWICE A DAY 180 April 25, 2023 3:47pm April 15, 2024 4:25pm diuretic Start: 06-20-2021 End: 06-23-2024 take 1 tablet by mouth once daily Furosemide (Lasix) 40 mg tablet Discontinued 40 mg PO DAILY 180 May 11, 2022 5:57pm August 01, 2022 9:59pm Start: 10-13-2020 End: 10-19-2020 take 1 tablet by mouth every other day Furosemide (Lasix) 40 mg tablet Discontinued 40 mg PO every other day 3 October 13, 2020 12:00am October 19, 2020 [...] mg tablet Discontinued 4 mg PO DAILY 90 June 06, 2023 11:38am November 16, 2023 12:36pm Diabetes mellitus 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 with hyperglycemia residential (current) use of insulin blood sugar Start: 02-02-2021 End: 10-08-2022 take 1 tablet by mouth twice daily Glimepiride (Amaryl) 4 mg tablet Discontinued 4 mg PO TWICE A DAY 180 March 12, 2022 9:12am October 08, 2022 2:23pm Diabetes mellitus 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 with hyperglycemia terminologist (current) use of insulin Start: 07-22-2020 End: 07-10-2023 take 1 tablet by mouth once daily Glimepiride 4 mg tablet Discontinued 4 mg PO DAILY 30 July 22, 2020 12:00am February 02, 2021 1:58pm glucagon (rdna) 1 mg injecti on (2 sources) Antihypoglycemic Agent Start: 10-03-2023 End: 10-05-2023 150 ml glucose 50 mg/ml inje ction (4 sources) Start: 10-03-2023 End: 10-05-2023 Start: 10-03-2023 End: 10-05-2023 12 hr guaiFENesin 1200 mg extended release oral tablet (3 sources) Start: 01-22-2024 End: 02-03-2024 take 1 tablet by mouth twice daily, then take 1 tablet by mouth every twelve hours Guaifenesin (Mucus Relief Er) 1,200 mg Tablet Extended Release 12hr Discontinued 1200 mg PO TWICE A DAY 10 January 22, 2024 12:00am February 03, 2024 3:31pm hydroCHLOROthiazide 25 mg oral tablet (20 sources) Thiazide Diuretic Start: 01-08-2018 End: 06-20-2021 take 1 tablet by mouth once daily Hydrochlorothiazide 25 mg tablet Discontinued 25 mg PO DAILY 90 April 03, 2021 12:41pm June 20, 2021 11:20am blood pressure 1.5 ml insulin glargine 300 unt/ml pen injector (20 sources) Insulin Analog Start: 08-01-2022 End: 08-15-2022 Insulin Glargine U-300 Conc (Toujeo Solostar U-300 Insulin) 300 unit/mL (1.5 mL) insulin pen Discontinued 55 U SC DAILY August 01, 2022 9:59pm August 15, 2022 8:08am diabetes Start: 04-03-2022 End: 08-01-2022 Insulin Glargine U-300 Conc (Toujeo Solostar U-300 Insulin) 300 unit/mL (1.5 mL) insulin pen Discontinued 50 U SC DAILY 4.5 April 03, 2022 9:05am August 01, 2022 9:59pm diabetes Start: 11-13-2021 End: 04-03-2022 Insulin Glargine U-300 Conc (Toujeo Solostar U-300 Insulin) 300 unit/mL (1.5 mL) insulin pen Discontinued 45 U SC DAILY November 13, 2021 3:32pm April 03, 2022 9:06am diabetes Start: 02-26-2021 End: 11-13-2021 Insulin Glargine U-300 Conc (Toujeo Solostar U-300 Insulin) 300 unit/mL (1.5 mL) insulin pen Discontinued 55 U SC DAILY February 26, 2021 1:00am November 13, 2021 3:34pm diabetes Start: 02-26-2021 End: 08-15-2022 Start: 10-13-2020 End: 12-22-2020 Insulin Glargine U-300 Conc 300 unit/mL (1.5 mL) insulin pen Discontinued 55 U SC DAILY October 13, 2020 3:54pm December 22, 2020 2:53pm diabetes Start: 04-13-2020 End: 10-13-2020 Insulin Glargine U-300 Conc 300 unit/mL (1.5 mL) insulin pen Discontinued 30 U SC TWICE A DAY April 13, 2020 11:07am October 13, 2020 3:55pm diabetes Start: 03-28-2020 End: 12-22-2020 Insulin Glargine U-300 Conc 300 UNIT/ML insulin pen Discontinued 45 U SQ DAILY March 28, 2020 1:00am April 13, 2020 11:07am diabetes insulin lispro 100 unt/ml injectable solution (20 sources) Insulin Analog Start: 08-15-2022 End: 09-03-2022 Insulin Lispro (Humalog U-100 Insulin) 100 unit/mL solution Discontinued 100 U continuous subcutaneous infusion .continuous 90 1 August 15, 2022 12:00am September 03, 2022 2:30pm Diabetes mellitus 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 with hyperglycemia terminologist (current) use of insulin Start: 08-15-2022 End: 09-03-2022 Start: 08-01-2022 End: 09-03-2022 Insulin Lispro (Humalog Kwik pen Insulin) 100 unit/mL insulin pen Discontinued 25 U SC 3 TIMES DAILY WITH MEALS August 01, 2022 9:59pm September 03, 2022 2:30pm diabetes Start: 06-29-2022 End: 08-01-2022 Insulin Lispro (Humalog Kwik pen Insulin) 100 unit/mL insulin pen Discontinued 15 U SC THREE TIMES A DAY 45 2 June 29, 2022 8:31am August 01, 2022 [...] IntraVENous, IMG once PRN, contrast, Starting on Freida 02/06/24 at 0757, For 1 dose labetalol hydrochloride [...] 2 times per day with meals 360 3 August 10, 2021 2:16pm November 13, 2021 3:34pm diabetes Start: 10-13-2020 End: 08-10-2021 Metformin 500 mg tablet exte nded release 24 hr Discontinued 1000 mg PO AT BEDTIME October 13, 2020 3:53pm August 10, 2021 2:23pm diabetes Start: 10-15-2018 End: 10-13-2020 take 1 tablet by mouth at bedtime Metformin 500 MG tablet Discontinued 500 mg PO AT BEDTIME October 15, 2018 12:00am October 13, 2020 3:55pm diabetes Start: 10-15-2018 End: 11-13-2021 Start: 10-15-2018 End: [...] afternoon). Active metroNIDAZOLE 500 mg oral tablet (6 sources) Nitroimidazole Antimicrobial Start: 04-02-2024 End: 04-15-2024 take 1 tablet by mouth twice daily Metronidazole 500 mg tablet Discontinued 500 mg PO TWICE A DAY 28 14 0 April 02, 2024 1:00am April 15, 2024 1:00am April 15, 2024 4:23pm nintedanib 150 mg oral capsule (6 sources) Kinase Inhibitor Start: 04-22-2024 End: 05-21-2024 take 1 capsule by mouth every twelve hours Nintedanib (Ofev) 150 mg capsule Discontinued 150 mg PO Q12H 60 April 22, 2024 1:00am May 21, 2024 11:49am Interstitial lung disease Interstitial pulmonary disease, unspecified potassium chloride 10 meq extended release oral tablet (20 sources) Start: 06-20-2021 End: 05-11-2022 take 2 tablets by mouth once daily Potassium Chloride 10 mEq tablet extended release Discontinued 20 meq PO DAILY 180 July 26, 2021 12:10pm May 11, 2022 5:57pm start 06/21/21 Start: 06-20-2021 End: 05-11-2022 potassium citrate 10 meq extended release oral tablet (20 sources) Start: 01-16-2023 End: 02-27-2023 take 1 tablet by mouth twice daily Potassium Citrate 10 mEq (1,080 mg) tablet extended release Discontinued 10 meq PO TWICE A DAY February 04, 2023 1:00am February 27, 2023 11:48am SITagliptin 100 mg oral tablet (20 sources) Dipeptidyl Peptidase 4 Inhibitor Start: 01-08-2018 End: 07-22-2020 take 1 tablet by mouth once daily Sitagliptin Phosphate 100 mg tablet Discontinued 100 mg PO DAILY April 07, 2020 3:55pm July 22, 2020 3:49pm diabetes 1000 ml sodium chloride 9 mg/ml injection [...] Midline or Central Line = 20 mL/lumen spironolactone 50 mg oral tablet (20 sources) Aldosterone Antagonist Start: 05-21-2022 End: 05-21-2024 take 1 tablet by mouth once daily Spironolactone 50 mg tablet Discontinued 50 mg PO DAILY 90 June 05, 2023 1:21pm October 17, 2023 2:09pm Start: 05-11-2022 End: 05-21-2022 take 1 tablet by mouth once daily Spironolactone 25 mg tablet Discontinued 25 mg PO DAILY 90 3 May 11, 2022 1:00am May 21, 2022 4:41pm (20 sources) Start: 04-02-2024 End: 04-16-2024 Start: [...] unspecified, initial encounter] Onset: 4 12-10-2022 Episodic Conditions associated with dizziness or vertigo (20 sources) Dizziness; Translations: [Dizziness and giddiness] Onset: 3 02-16-2021 Episodic Congestive heart failure; nonhypertensive (20 sources) Congestive heart failure; Translations: [Heart failure, unspecified] Onset: 4 Chronic Comment on above: Stage I diastolic dy sfunction Coronary atherosclerosis and other heart disease (20 sources) History of non-ST segment elevation myocardial infarction; Translations: [Old myocardial infarction] Onset: 0 07-12-2021 Chronic Deficiency and other anemia (9 sources) Iron deficiency anemia due to blood loss; Translations: [Iron deficiency anemia secondary to blood loss (chronic)] 03-12-2024 Chronic Deficiency and other anemia (2 sources) Iron deficiency anemia secondary to blood loss (chronic); Translations: [Iron deficiency anemia secondary to blood loss (chronic)] Onset: 5 Chronic Deficiency and other anemia (6 sources) Anemia; Translations: [Anemia, unspecified] 03-27-2024 Episodic [...] 09-03-2022 Episodic Diseases of white blood cells (6 sources) Leukocytosis; Translations: [Elevated white blood cell [...] urinary tract symptoms] Onset: 6 09-21-2015 Chronic Immunizations and screening for infectious disease (19 sources) Rheumatoid factor positive; Translations: [Other specified abnormal immunological findings in serum] Onset: 4 05-01-2024 Episodic Malaise and fatigue (20 sources) Fatigue; Translations: [Other fatigue] Onset: 4 02-16-2021 Episodic Occlusion or stenosis of precerebral arteries (20 sources) Carotid artery stenosis; Translations: [Occlusion and stenosis of unspecified carotid artery] Onset: 4 10-11-2021 Chronic Comment on above: CTA- L CCA 70% 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 Other aftercare (6 sources) Drug therapy finding; Translations: [residential (current) use of anticoagulants] 03-05-2024 Episodic Other aftercare (12 sources) Long-term current use of anticoagulant; Translations: [terminologist (current) use of anticoagulants] 11-24-2023 Episodic Other aftercare (1 source) residential (current) use of insulin; Translations: [terminologist (current) use of insulin] Onset: 5 Episodic Other circulatory disease (20 sources) Carotid bruit; Translations: [Other specified symptoms and signs involving the circulatory and respiratory systems] Onset: 4 09-07-2021 Episodic Other circulatory disease (20 sources) Other specified symptoms and signs involving the circulatory and respiratory systems; Translations: [Other symptoms involving cardiovascular system] Episodic Other circulatory disease (10 sources) History of transient ischemic attack; Translations: [Personal history of transient ischemic attack (TIA), and cerebral infarction without residual deficits] 03-31-2023 Episodic Other circulatory disease (6 sources) H/O: atrial fibrillation; Translations: [Personal history of other diseases of the circulatory system] 11-24-2023 Episodic Other connective tissue disease (6 sources) Weakness of face muscles; Translations: [Facial weakness] 11-24-2023 Episodic Other connective tissue disease (1 source) Facial weakness; Translations: [Facial weakness] Onset: Episodic Other diseases of kidney and ureters (7 sources) Renal impairment; Translations: [Disorder of kidney and ureter, unspecified] 05-21-2024 Episodic Other gastrointestinal disorders (6 sources) Abdominal bloating; Translations: [Abdominal distension (gaseous)] [...] 3 04-25-2023 Episodic Other lower respiratory disease (6 sources) Hypoxemia; Translations: [Hypoxemia] 04-12-2024 Episodic Other lower respiratory disease (6 sources) Respiratory insufficiency; Translations: [Other abnormalities of breathing] 01-28-2024 Episodic Other lower respiratory disease (6 sources) Hypoxia; Translations: [Hypoxemia] 01-28-2024 Episodic Other [...] 4 03-12-2023 Chronic Other nervous system disorders (10 sources) Cranial nerve disorder; Translations: [Cranial nerve [...] Chronic Other nutritional; endocrine; and metabolic disorders (8 sources) Body mass index 40+ - severely [...] Chronic Other nutritional; endocrine; and metabolic disorders (6 sources) H/O: diabetes mellitus; Translations: [Personal history of other endocrine, nutritional and metabolic disease] 11-24-2023 Episodic Other screening for suspected conditions (not mental disorders or infectious disease) (20 sources) Decreased testosterone level ; Translations: [Other specified abnormal findings of blood chemistry] Onset: 3 07-05-2022 Episodic Peripheral and visceral atherosclerosis (6 sources) Arteriosclerotic vascular disease; Translations: [Unspecified atherosclerosis] 11-24-2023 Chronic Pleurisy; pneumothorax; pulmonary collapse (20 sources) Pleural effusion; Translations: [Pleural effusion, not elsewhere classified] Onset: 6 09-23-2015 Episodic Pneumonia (except that caused by tuberculosis or sexually transmitted disease) (8 sources) Pneumonia; Translations: [Pneumonia, unspecified organism] Onset: [...] apnea (adult)(pediatric)] Onset: Chronic Residual codes; unclassified (9 sources) Sleep apnea; Translations: [Sleep apnea, unspecified] 03-23-2024 Chronic Residual codes; unclassified (1 source) Device in situ; Translations: [Mechanical venous thromboembolism (VTE) prophylaxis in place] Onset: 6 09-21-2015 Respiratory failure; insufficiency; arrest (adult) (20 sources) Chronic hypoxemic respiratory failure; Translations: [Chronic respiratory failure with hypoxia] Onset: 4 06-12-2022 Chronic Respiratory failure; insufficiency; arrest (adult) (20 sources) Acute respiratory failure; Translations: [Acute respiratory failure with hypoxia] Onset: Episodic Syncope (20 sources) Near syncope; Translations: [Syncope [...] [Calculus of kidney] Onset: 09-09-2006 09-09-2006 Episodic Deficiency and other anemia (2 sources) Anemia, unspecified; Translations: [Anemia, unspecified] Onset: 04-21-2024 Episodic Nonmalignant breast conditions (19 sources) Breast lump; Translations: [Unspecified lump in unspecified breast] Onset: 05-30-2007 05-30-2007 Episodic Other aftercare (1 source) residential (current) use of anticoagulants; Translations: [residential (current) use of anticoagulants] Onset: 05-05-2024 Episodic [...] acute postprocedural pain] Onset: 09-20-2015 09-23-2015 Episodic Spondylosis; intervertebral disc disorders; other back problems (2 sources) Intervertebral disc disorders with radiculopathy, lumbosacral region; Translations: [Cervicalgia] Onset: 09-27-2023 Episodic Unclassified (7 sources) Onset: 08-07-2024 08-07-2024 Results Test Name Value Interpretation Reference Range Facility Absolute lymphocyte countOrd ered By: Angelchristian Avitia on 09-26-2024 Lymphocytes Auto (Unsp spec) [#/Vol] 0.58 10*3/uL Low 0.83-4.51 [facility] Absolute neutrophil countOrd ered By: Angelchristian Avitia on 09-26-2024 Neutrophils (Bld) [#/Vol] 11.9 10*3/uL High 2.0-7.7 [facility] Activated partial thrombopla stin time (aPTT) in platelet poor plasma by coagulation aOrdered By: Angel Avitia on 09-26-2024 aPTT Coag (PPP) [Time] 20.8 s Low 24.1-36.2 [facility] Anion gap in Serum or Plasma Ordered By: Angelchristian Avitia on 09-26-2024 Anion gap [Moles/Vol] 15 mmol/L 5-15 [facility] Automated lymphocyte count a s percentage of total leukocytesOrdered By: Angelchristian Avitia on 09-26-2024 Lymphocytes/100 WBC Auto (Unsp spec) 4.2 % Low 19-41 [facility] BUN/creatinine ratioOrdered By: [facility] on 09-26-2024 Urea nitrogen/Creatinine [Mass ratio] 24.6 mg/mg High 10-20 [facility] Basophil percentageOrdered B y: Angelchristian Avitia on 09-26-2024 Basophils/100 WBC (Bld) 0.4 % 0-[address] [facility] Carbon dioxide, total [Moles /volume] in Central venous bloodOrdered By: Angel Avitia on 09-26-2024 CO2 [Moles/Vol] 22.9 mmol/L 21.0-32.0 [facility] Chloride assayOrdered By: Domonique Avitia on 09-26-2024 Chloride [Moles/Vol] 100 mmol/L 98-108 [facility] Eosinophil percentageOrdered By: Angel Avitia on 09-26-2024 Eosinophils/100 WBC (Bld) 0.6 % 0-5 [facility] Erythrocyte distribution wid th ratioOrdered By: Angelchristian Avitia on 09-26-2024 Erythrocyte distribution width (RBC) [Ratio] 17.9 % High 11.6-14.6 [facility] Erythrocyte distribution wid th standard deviationOrdered By: Agnelchristian Avitia on 09-26-2024 Erythrocyte distribution width (RBC) [Ratio] 50.9 fl High 35.1-43.9 [facility] Glomerular filtration rate ( GFR) estimation/1.73 sq m using serum, plasma, or whole bOrdered By: Angel Avitia on 09-26-2024 GFR/1.73 sq M.predicted among non-blacks MDRD (S/P/Bld) [Vol rate/Area] 65 mL/min/{1.73_m2} >60 [facility] Comment on above: mL/min/1.73m2 CKD-EP I Creatinine Equation (2020) Hematocrit Auto (Bld) [Volum e fraction]Ordered By: Angel Avitia on 09-26-2024 Hematocrit (Bld) [Volume fraction] 30.0 % Low 40-54 [facility] Hemoglobin measurementOrdere d By: Angel Avitia on 09-26-2024 Hemoglobin (Bld) [Mass/Vol] 9.1 g/dL Low 13.0-16.5 [facility] Immature granulocytes/100 WB C Auto (Bld)Ordered By: Angel Avitia on 09-26-2024 Immature granulocytes/100 WBC (Bld) 0.800 % 0.0-0.9 [facility] Comment on above: IG% - Immature Granu locytes (promyelocytes, myelocytes and metamyelocytes) > 1% indicates that a LEFT SHIFT is Present. International normalized rat io (INR) calculationOrdered By: Angel Avitia on 09-26-2024 INR Coag (Bld) [Relative time] 1.0 {INR} [facility] MCV (mean corpuscular volume ) determinationOrdered By: Angelchristian Avitia on 09-26-2024 MCV (RBC) [Entitic vol] 79.2 fL Low 80-[address] [facility] Mean corpuscular hemoglobin (MCH) determinationOrdered By: Angel Avitia on 09-26-2024 MCH (RBC) [Entitic mass] 24.0 pg Low 27.0-32.0 [facility] Mean corpuscular hemoglobin concentration (MCHC) determinationOrdered By: Angelchristian Caseo on 09-26-2024 MCHC (RBC) [Mass/Vol] 30.3 g/dL Low 32-36 [facility] Mean platelet volume determi nationOrdered By: Angel Avitia on 09-26-2024 Platelet mean volume (Bld) [Entitic vol] 10.4 fL 6.2-12.0 [facility] Monocyte percentageOrdered B y: Angelchristian Avitia on 09-26-2024 Monocytes/100 WBC (Bld) 8.7 % 0-[address] [facility] Neutrophil percentageOrdered By: Angel Avitia on 09-26-2024 Neutrophils/100 WBC (Bld) 85.3 % High 47-70 [facility] Nucleated red blood cell per centageOrdered By: Angelchristian Avitia on 09-26-2024 Nucleated RBC/100 WBC (Bld) [Ratio] 0 % 0-5 [facility] Platelet countOrdered By: Domonique christian Avitia on 09-26-2024 Platelets (Bld) [#/Vol] 237 10*3/uL 150-450 [facility] Potassium measurement (mass/ volume)Ordered By: Angelchristian Avitia on 09-26-2024 Potassium (Unsp spec) [Mass/Vol] 4.2 mmol/L 3.3-5.1 [facility] Comment on above: Hemolysis present, R esults could be affected. Prothrombin timeOrdered By: Angel Avitia on 09-26-2024 PT Coag (PPP) [Time] 13.1 s 11.7-14.9 [facility] RBC Auto (Bld) [#/Vol]Ordere d By: Angel Avitia on 09-26-2024 RBC (Bld) [#/Vol] 3.79 10*6/uL Low 4.6-6.2 [facility] Serum creatinine measurement (mass/volume)Ordered By: Angel Avitia on 09-26-2024 Creatinine [Mass/Vol] 1.26 mg/dL High 0.70-1.20 [facility] Serum glucose measurement (m ass/volume)Ordered By: Angel Avitia on 09-26-2024 Glucose [Mass/Vol] 246 mg/dL High 70-99 [facility] Serum or plasma calcium grazyna urement (mass/volume)Ordered By: Angelchristian Avitia on 09-26-2024 Calcium [Mass/Vol] 9.0 mg/dL 7.6-11.0 [facility] Serum or plasma urea nitroge n measurement (mass/volume)Ordered By: Angel Avitia on 09-26-2024 Urea nitrogen [Mass/Vol] 31 mg/dL High 4-19 [facility] Sodium levelOrdered By: Angelchristian Avitia on 09-26-2024 Sodium [Moles/Vol] 138 mmol/L 133-145 [facility] Troponin T.cardiac [Mass/vol ume] in Serum or Plasma by High sensitivity methodOrdered By: Angel Avitia on 09-26-2024 Troponin T.cardiac High sensitivity method [Mass/Vol] 47 ng/L High <22 [facility] White blood cell (WBC) count Ordered By: Angel Avitia on 09-26-2024 WBC (Bld) [#/Vol] 14.0 10*3/uL High 4.4-11.0 [facility] ASPERGILLUS GALACTOMANNAN EI A (NON-BLOOD SPECIMEN)on 09-24-2024 Galactomannan Ag IA Qn 0.027 Normal <0.500 [facility] Comment on above: Result Comment: Inte rpretation: [...] Aspergillus Galactomannan EIA is a product of [employer] and is FDA approved for in vitro diagnostic use. Testing Performed at: [facility] [address] [place] [address] Active Directory Specialist: José Harris, PhD [facility] ([facility]) CLIA # [id number] FLAG Interpretation: A = Abnormal, H = High, L = Low Performed By: #### A SPQN ####[facility] ([id number] [place] [address] BASIC METABOLIC PANEL WITH A NION GAPon 09-24-2024 Calcium [Mass/Vol] 8.7 mg/dL Normal 8.6-10.3 [facility] Comment on above: Order Comment: FASTI NG:YES FASTING: YES Performed By: #### 9 191, 175 #### [facility] [address], [address] [place] [address] Security Software Engineer: Octavio Segovia MD Chloride [Moles/Vol] 102 mmol/L Normal 98-110 [facility] Comment on above: Order Comment: FASTI NG:YES FASTING: YES Performed By: #### 9 083, 175 #### [facility] [address], [address] [place] [address] Security Software Engineer: Octavio Segovia MD CO2 [Moles/Vol] 20 mmol/L Normal 20-32 [facility] Comment on above: Order Comment: FASTI NG:YES FASTING: YES Performed By: #### 9 380, 175 #### [facility] [address], [address] [place] [address] Security Software Engineer: Octavio Segovia MD Creatinine [Mass/Vol] 1.49 mg/dL High 0.70-1.[address] [facility] Comment on above: Order Comment: FASTI NG:YES FASTING: YES Performed By: #### 9 2497, 1759 #### [facility] [address], [address] [place] [address] Security Software Engineer: Octavio Segovia MD ELECTROLYTE BALANCE 14 mmol/L (calc) Normal 7-17 [facility] Comment on above: Order Comment: FASTI NG:YES FASTING: YES Performed By: #### 9 2497, 175 #### [facility] [address], [address] [place] [address] Security Software Engineer: Octavio Segovia MD GFR/1.73 sq M.predicted among non-blacks MDRD (S/P/Bld) [Vol rate/Area] 53 mL/min/{1.73_m2} Low > OR = 60 [facility] Comment on above: Order Comment: FASTI NG:YES FASTING: YES Performed By: #### 9 2497, 175 #### [facility] [address], [address] [place] [address] Security Software Engineer: Octavio Segovia MD Glucose [Mass/Vol] 304 mg/dL High 65-99 [facility] Comment on above: Order Comment: FASTI NG:YES FASTING: YES Result Comment: Fasting reference interval For someone without known diabetes, a glucose value >125 mg/dL indicates that they may have diabetes and this should be confirmed with a follow-up test. Performed By: #### 9 2497, 1759 #### [facility] [address], [address] [place] [address] Security Software Engineer: Octavio Segovia MD Potassium [Moles/Vol] 4.8 mmol/L Normal 3.5-5.[address] [facility] Comment on above: Order Comment: FASTI NG:YES FASTING: YES Performed By: #### 9 2497, 175 #### [facility] of [address], [address] [place] [address] Security Software Engineer: Octavio Segovia MD Sodium [Moles/Vol] 136 mmol/L Normal 135-146 [facility] Comment on above: Order Comment: FASTI NG:YES FASTING: YES Performed By: #### 9 2498, 1759 #### [facility] [address], [address] [place] [address] Security Software Engineer: Octavio Segovia MD Urea nitrogen [Mass/Vol] 36 mg/dL High 10-23 [facility] Comment on above: Order Comment: FASTI NG:YES FASTING: YES Performed By: #### 9 2498, 1759 #### [facility] [address], [address] [place] [address] Security Software Engineer: Octavio Segovia MD Urea nitrogen/Creatinine [Mass ratio] 24 mg/mg High 09-20 [facility] Comment on above: Order Comment: FASTI NG:YES FASTING: YES Performed By: #### 9 2498, 1759 #### [facility] [address], [address] [place] [address] Security Software Engineer: Octavio Segovia MD BRONCHOSCOPYon 09-24-2024 BRONCHOSCOPY Table formatting fro m the original result was not included. Images from the original result were not included. Bronchoscopy Operative Report [facility] Date of procedure: 09/24/24 Patient: Krunal [...] INDICATION: Obtain diagnosis BRONCHOSCOPIST: Dick Nguyen MD Customs Broker: Maeve Pringle MD PROCEDURES PERFORMED: Flexible Bronchoscopy Cryo Transbronchial Biopsy using 1.7 cryoprobe 7 Chadian Osmani renuka placement in RLL and RML BAL RML Events Procedure Events Event Event Time ENDO SCOPE IN TIME 09/24/2024 8:05 AM ENDO SCOPE OUT TIME 09/24/2024 8:40 AM POST-PROCEDURE DIAGNOSIS: Interstitial Lung Disease ANESTHESIA: GETA. See separate anesthesia provider documentation. This procedure was performed using standard monitoring procedures in [facility] Endoscopy Suite. Medications See Anesthesia Record. Details [...] bronchoscopy was performed via ETT. A 7 luxembourger renuka was placed outside of the ETT [...] cryo transbronchial biopies and placement of 7 luxembourger renuka. The procedure required more time than usual to perform. After diagnostic/therapeutic maneuvers, the airway was examined for evidence of bleeding. None was noted. The bronchoscope was removed from the patient's airway and the airway was handed back over to my colleagues from anesthesiology. SPECIMENS: ID Type Source Karly (more content not included)... [facility] Comment on above: Order Comment: [facility] hoscopy Scheduling Request Pre-bronchoscopy visit: Not needed with Dr Padron Please schedule procedure: After September 11, 2024 Cytology on-site: No Location: [facility] Performing physician: Dick Nguyen MD or interventional pulm (cryo ILD biopsies) Referring physician: Rosalino Padron MD, Radha Khan MD Indication: undifferentiated ILD Sedation / Anesthesia: GA Procedure: Airway exam, BAL, TBBx, Rigid, 7 luxembourger renuka with rigid, if too hypoxic then 8.5/9 ETT with 5 luxembourger renuka Time: Tier 2 Fluorscopy: Yes Imaging needed: None Labs: CBC, BMP Meds: Brilinta, Eliquis, ASA 325. (Need neurology clearance) okay for asa 81 but not 325 prior to cryo bronch Special Considerations: baseline 4L with exertion is 6L NC. Reviewed by: Dick Nguyen MD on 5/11/25 Bacteria identifiedon 2024 Bacteria identified Respiratory culture Nom (Unsp spec) Test: Respiratory Culture/Smear Specimen Source: BRONCHO-ALVEOLAR LAVAGE OF RIGHT MIDDLE LOBE Specimen Type: Fluid Specimen Date: 09/24/2024838 Result Date: 09/26/2024840 Result Status: Final result Resulting Lab: [facility] [id number] [id number] CULTURE No growth aerobically and anaerobically STAIN (2+) Few Polymorphonuclear leukocytes No organisms seen Normal [facility] Comment on above: Performed By: #### 3 2355-0 #### MICHAEL Ho ([id number]) [facility] ([facility]) [id number] [place] [address] Bronchoscopy studyon 025 Addendum by Dick Davis am, MD on 09/24/2024 9:35 AM EDT Table formatting from the original result was not included. Images from the original result were not included. Bronchoscopy Operative Report [facility] Date of procedure: 09/24/24 Patient: Krunal [...] INDICATION: Obtain diagnosis BRONCHOSCOPIST: Dick Nguyen MD Customs Broker: Maeve Pringle MD PROCEDURES PERFORMED: Flexible Bronchoscopy Cryo Transbronchial Biopsy using 1.7 cryoprobe 7 Chadian Osmani renuka placement in RLL and RML BAL RML Events Procedure Events Event Event Time ENDO SCOPE IN TIME 09/24/2024 8:05 AM ENDO SCOPE OUT TIME 09/24/2024 8:40 AM POST-PROCEDURE DIAGNOSIS: Interstitial Lung Disease ANESTHESIA: GETA. See separate anesthesia provider documentation. This procedure was performed using standard monitoring procedures in [facility] Endoscopy Suite. Medications See Anesthesia Record. Details [...] bronchoscopy was performed via ETT. A 7 luxembourger renuka was placed outside of the ETT [...] cryo transbronchial biopies and placement of 7 luxembourger renuka. The procedure required more time than usual to perform. After diagnostic/therapeutic maneuvers, the airway (more content not included)... [facility] Work Phone: [facility] Work Phone: Radiology Study observation (narrative) [facility] Work Phone: CBC (H/H, RBC, INDICES, WBC, PLT)on 09-24-2024 Erythrocyte distribution width (RBC) [Ratio] 16.0 % High 11.0-15.0 [facility] Comment on above: Performed By: #### 9 0786, 9712 #### [facility] of [address], [address] [place], [place] [id number] Security Software Engineer: Octavio Segovia MD Hematocrit (Bld) [Volume fraction] 33.0 % Low 38.5-50.0 [facility] Comment on above: Performed By: #### 9 298, 1754 #### [facility] [address], [address] [place], [place] [id number] Security Software Engineer: Octavio Segovia MD Hemoglobin (Bld) [Mass/Vol] 9.4 g/dL Low 13.2-17.1 [facility] Comment on above: Performed By: #### 9 282, 6864 #### [facility] [address], [address] [place], [place] [id number] Security Software Engineer: Octavio Segovia MD MCH (RBC) [Entitic mass] 23.4 pg Low 27.0-33.0 [facility] Comment on above: Performed By: #### 9 2497, 1759 #### [facility] [place] [address] Security Software Engineer: Octavio Segovia MD MCHC (RBC) [Mass/Vol] 28.5 [...] #### 9 2497, 1759 #### [facility] [place] [address] Security Software Engineer: Octavio Segovia MD MCV (RBC) [Entitic vol] 82.1 fL Normal 80.0-100.0 [facility] Comment on above: Performed By: #### 9 2497, 1759 #### [facility] [place] [address] Security Software Engineer: Octavio Segovia MD Platelet mean volume (Bld) [Entitic vol] 10.4 fL Normal 7.5-12.5 [facility] Comment on above: Performed By: #### 9 2497, 175 #### [facility] [place] [address] Security Software Engineer: Octavio Segovia MD Platelets (Bld) [#/Vol] 259 10*3/uL Normal 140-400 [facility] Comment on above: Performed By: #### 9 2497, 175 #### [facility] [place] [address] Security Software Engineer: Octavio Segovia MD RBC (Bld) [#/Vol] 4.02 10*6/uL Low 4.20-5.80 [facility] Comment on above: Performed By: #### 9 2497, 1759 #### [facility] [address], [address] [place] [address] Security Software Engineer: Octavio Segovia MD WBC (Bld) [#/Vol] 12.8 10*3/uL High 3.8-10.8 [facility] Comment on above: Performed By: #### 9 2498, 1759 #### [facility] [address], [address] [place] [address] Security Software Engineer: Octavio Segovia MD Cell count panel (Body fld)O rdered By: Johanna Prieto on 09-24-2024 Clarity (Body fld) Clear Clear [facility] Color (Body fld) Colorless Colorless, Straw, Yellow [facility] RBC Auto (Body fld) [#/Vol] /uL see comment /uL [facility] WBC (Body fld) [#/Vol] 0.022 10*3/uL See Comment [facility] Body Fluid cell coun t reference ranges have not been established by [facility]. Reference ranges provided are based on published references. This test was developed and its performance characteristics determined by [facility]. It has not been cleared or approved by the [place] Food and Drug Administration. [facility] Cell count panel (Body fld)o n 09-24-2024 Clarity (Body fld) Clear Normal Clear [facility] Comment on above: Order Comment: Body Fluid cell count reference ranges have not been established by [facility]. Reference ranges provided are based on published references. This test was developed and its performance characteristics determined by [facility]. It has not been cleared or approved by the [place] Food and Drug Administration. Performed By: #### 3 4556-1 #### MICHAEL Ho ([id number]) [facility] ([facility]) [address] [place] [address] Color (Body fld) Colorless Normal Colorless, Straw, Yellow [facility] Comment on above: Order Comment: Body Fluid cell count reference ranges have not been established by [facility]. Reference ranges provided are based on published references. This test was developed and its performance characteristics determined by [facility]. It has not been cleared or approved by the [place] Food and Drug Administration. Performed By: #### 3 4556-1 #### MICHAEL Ho ([id number]) [facility] ([facility]) [address] [place] [address] RBC Auto (Body fld) [#/Vol] <2000 Normal see comment [facility] Comment on above: Order Comment: Body Fluid cell count reference ranges have not been established by [facility]. Reference ranges provided are based on published references. This test was developed and its performance characteristics determined by [facility]. It has not been cleared or approved by the [place] Food and Drug Administration. Performed By: #### 3 4556-1 #### MICHAEL Ho ([id number]) [facility] ([facility]) [address] [place] [address] WBC (Body fld) [#/Vol] 0.022 10*3/uL Normal See Comment [facility] Comment on above: Order Comment: Body Fluid cell count reference ranges have not been established by [facility]. Reference ranges provided are based on published references. This test was developed and its performance characteristics determined by [facility]. It has not been cleared or approved by the [place] Food and Drug Administration. Performed By: #### 3 4556-1 #### MICHAEL Ho ([id number]) [facility] ([facility]) [address] [place] [phone] Differential panel (Body fld )on 09-24-2024 Cells Counted Total (Body fld) [#] 100 [facility] Eosinophils/100 WBC Manual cnt (Body fld) 1 % see comment [facility] Comment on above: BAL Reference Range: <1% Lymphocytes/100 WBC Manual cnt (Body fld) 21 % see comment [facility] Comment on above: Synovial/Peritoneal/ Pericardial/Pleural Fluid Reference Range: <75% BAL Reference Range: <10% Monocytes+Macrophages/1 00 WBC Manual cnt (Body fld) 53 % see comment [facility] Comment on above: Synovial/Peritoneal/ Pericardial/Pleural Fluid Reference Range: <70% BAL Reference Range: 87-100% Neutrophils/100 WBC (Body fld) 25 % see comment [facility] Comment on above: Synovial/Peritoneal/ Pericardial/Pleural Fluid Reference Range: <25% BAL Reference Range: <2% Body Fluid cell differential reference ranges have not been established by [facility]. Reference ranges provided are based on published references. This test was developed and its performance characteristics determined by [facility]. It has not been cleared or approved by the [place] Food and Drug Administration. [facility] Cells Counted Total (Body fld) [#] 100 Normal [facility] Comment on above: Order Comment: Body Fluid cell differential reference ranges have not been established by [facility]. Reference ranges provided are based on published references. This test was developed and its performance characteristics determined by [facility]. It has not been cleared or approved by the [place] Food and Drug Administration. Performed By: #### 2 9580-8 #### MICHAEL Ho ([id number]) [facility] ([facility]) [address] [place] [address] 28500 Eosinophils/100 WBC Manual cnt (Body fld) 1 % Normal see comment [facility] Comment on above: Order Comment: Body Fluid cell differential reference ranges have not been established by [facility]. Reference ranges provided are based on published references. This test was developed and its performance characteristics determined by [facility]. It has not been cleared or approved by the [place] Food and Drug Administration. Result Comment: BAL Reference Range: <1% Performed By: #### 2 9580-8 #### MICHAEL Ho ([id number]) [facility] ([facility]) [address] [place] [address] Lymphocytes/100 WBC Manual cnt (Body fld) 21 % Normal see comment [facility] Comment on above: Order Comment: Body Fluid cell differential reference ranges have not been established by [facility]. Reference ranges provided are based on published references. This test was developed and its performance characteristics determined by [facility]. It has not been cleared or approved by the US Food and Drug Administration. Result Comment: Syno vial/Peritoneal/Pericardial/Pleural Fluid Reference Range: <75% BAL Reference Range: <10% Performed By: #### 2 9580-8 #### MICHAEL Ho ([id number]) [facility] ([facility]) [address] [place] [address]656 Monocytes+Macrophages/1 00 WBC Manual cnt (Body fld) 53 % Normal see comment [facility] Comment on above: Order Comment: Body Fluid cell differential reference ranges have not been established by [facility]. Reference ranges provided are based on published references. This test was developed and its performance characteristics determined by [facility]. It has not been cleared or approved by the US Food and Drug Administration. Result Comment: Syno vial/Peritoneal/Pericardial/Pleural Fluid Reference Range: <70% BAL Reference Range: 87-100% Performed By: #### 2 9580-8 #### MICHAEL Ho ([id number]) [facility] ([facility]) [address] [place] [address]76[address] Neutrophils/100 WBC (Body fld) 25 % Normal see comment [facility] Comment on above: Order Comment: Body Fluid cell differential reference ranges have not been established by [facility]. Reference ranges provided are based on published references. This test was developed and its performance characteristics determined by [facility]. It has not been cleared or approved by the US Food and Drug Administration. Result Comment: Syno vial/Peritoneal/Pericardial/Pleural Fluid Reference Range: <25% BAL Reference Range: <2% Performed By: #### 2 9580-8 #### MICHAEL Ho ([id number]) [facility] ([facility]) [address] [place], [place] [id number] Fungus identifiedon 09-25-19 Fungus identified Cx Nom (Unsp spec) Test: Fungal Culture/Smear Specimen Source: BRONCHO-ALVEOLAR LAVAGE OF RIGHT MIDDLE LOBE Specimen Type: Fluid Specimen Date: 09/24/2024838 Result Date: 09/25/20241114 Result Status: Preliminary result Resulting Lab: [facility] [address] [place], [place] [address] CULTURE Culture in progress, a report will be issued when positive or after 2 weeks of incubation. STAIN No fungal elements seen Normal [facility] Comment on above: Performed By: #### 5 80-1 #### MICHAEL Ho ([id number]) [facility] ([facility]) [address] [place] [address] LEGIONELLA PCR PANELon 09-24 LEGIONELLA PNEUMO PCR, VIRC Not detected Normal Not Detected [facility] Comment on above: Result Comment: This test was developed and its performance characteristics determined by [facility]. It has not been cleared or approved by the U.S. Food and Drug Administration. Results should be used in conjunction with clinical findings, and should not form the sole basis for a diagnosis or treatment decision. Testing Performed at: [facility] [id number], [place] [address] Active Directory Specialist: José Harris, PhD BCLJenny (ABB) CLIA # [id number] FLAG Interpretation: A = Abnormal, H = High, L = Low Performed By: #### L [facility] ####[facility] ([id number])51512 [place] [address] NAVAS.LEGIONELLA PCR, VIRC Not detected Normal Not Detected [facility] Comment on above: Performed By: #### L [facility] ####[facility] ([id number])50806 [place] [address] Mycobacterium sp identifiedo n 09-24-2024 Mycobacterium sp identified Org specific cx Nom (Unsp spec) Test: AFB Culture/Smear Specimen Source: BRONCHO-ALVEOLAR LAVAGE OF RIGHT MIDDLE LOBE Specimen Type: Fluid Specimen Date: 09/24/2024838 Result Date: 09/25/2024858 Result Status: Preliminary result Resulting Lab: [facility] [address] [place] [address] CULTURE Culture in progress and will be examined weekly. A result will be issued either when positive or after 8 weeks incubation. STAIN No acid fast bacilli seen [facility] Comment on above: Performed By: #### 5 43-9 #### MICHAEL Ho ([id number]) [facility] ([facility]) [address] [place], [place] [phone] Non-retirement specialist cytology studyon Non-gynecological cytology method study Pathology report.total SEE COMMENT Non-gynecologic Cytology Case: [id number] Authorizing Provider: Dick Nguyen MD Collected: 09/24/2024 0837 Ordering Location: [facility] Received: 09/24/2024 1637 Center Pathologist: Lyudmila Valentin MD Specimen: BRONCHO-ALVEOLAR LAVAGE OF RIGHT MIDDLE LOBE, BAL RML Path report.final diagnosis SEE COMMENT A. BRONCHO-ALVEOLAR LAVAGE OF RIGHT MIDDLE LOBE- BAL RML No malignant cells or viral inclusions are identified Numerous macrophages present GMS stain is negative for organisms: fungal and pneumocystis organisms. at 1551 EDT Laboratory comment SEE COMMENT Slide(s) initially screened by EDER Marquez at [facility] [id number] [place] [phone] By the signature on this report, the individual or group listed as making the Final Interpretation/Diagnosis certifies that they have reviewed this case. RESIDENT REVIEW The gross and/or microscopic findings were reviewed in conjunction with pathology resident, Salome Xiao MD. Path report.gross observation SEE COMMENT A. BRONCHO-ALVEOLAR LAVAGE OF RIGHT MIDDLE LOBE. Received 10 ml colorless cloudy fluid with particles in sterile cup . Laboratory comment SEE COMMENT A1 Slides Only (No Block) A1-1 Pap Stain NGYN ThinPrep A1-2 GMS PCP A1-3 LOG SPECIAL STAIN [facility] Pathologist review Cedrick (Unsp spec) [Interp]on 09-24-2024 PATH REVIEW-CELL CT,FLUID Predominantly macrophages with some foamy and hemosiderin-laden forms. Normal [facility] Comment on above: Result Comment: Elec tronically signed out by Cat Gunter MD on 09/25/24 at 10:24 AM. By the signature on this report, the individual or group listed as making the Final Interpretation/Diagnosis certifies that they have reviewed this case. Performed By: #### 5 9465-5 #### MICHAEL Ho ([id number]) [facility] ([facility]) [address] [place], [place] [phone] Surgical pathology studyon 0 09-24-2024 Surgical pathology study Pathology report.total SEE COMMENT Surgical Pathology Case: [id number] Authorizing Provider: Dick Nguyen MD Collected: 09/24/2024 0817 Ordering Location: [facility] Received: 09/24/2024 1142 Center Pathologist: Sanchez Hernandez [...] submitted in toto in one cassette. B [facility] XR CHEST 1 VIEWon 09-24-2024 XR CHEST 1 VIEW Interpreted By: Matthias Bunch and Mercado Amiel STUDY: XR CHEST 1 VIEW; 09/24/2024 9:32 am INDICATION: Signs/Symptoms:after bronchoscopy. COMPARISON: CT CHEST HIGH RESOLUTION 07/20/2024 ACCESSION NUMBER(S): [id number] ORDERING CLINICIAN: DICK NGUYEN FINDINGS: AP radiograph [...] Matthias Bunch 09/24/2024 10:10 AM Dictation workstation: [id number] [facility] XR Chest Single viewon 09-24 1. Diffuse bilateral hazy reticulonodular opacities with relatively increased size of right lateral lower lung field, which likely represents infiltrate/consolidation with superimposed interstitial lung findings previously described on CT. I have reviewed the images/study and I agree with the findings as stated by Dr. Aguila Gonzales. Signed by: Matthias Bunch 09/24/2024 10:10 AM Dictation workstation: [id number] Interpreted By: Matthias Bunch and Mercado Amiel STUDY: XR CHEST 1 VIEW; 09/24/2024 9:32 am INDICATION: Signs/Symptoms:after bronchoscopy. COMPARISON: CT CHEST HIGH RESOLUTION 07/20/2024 ACCESSION NUMBER(S): [id number] ORDERING CLINICIAN: DICK NGUYEN FINDINGS: AP radiograph [...] CT CHEST HIGH RESOLUTION 07/20/2024 ACCESSION NUMBER(S): [id number] ORDERING CLINICIAN: DICK NGUYEN FINDINGS: AP radiograph [...] Matthias Bunch 09/24/2024 10:10 AM Dictation workstation: [id number] [facility] Work Phone: Radiology Study observation (narrative) [facility] Work Phone: XR Chest Single viewOrdered By: Matthias Bunch on 09-24-2024 [facility] Work Phone: Endocrinology Visit Reporton 09-16-2024 Endocrinology Visit Report Normal [facility] - Hematology and Cell countsOrdered By: Coreen Gerardo on 09-16-2024 HbA1c (Bld) [Mass fraction] 8.4 % High 4.2-6.3 [facility] Office Visit Reporton 2024 Office Visit Report Normal [facility] Neurology Visit Reporton Neurology Visit Report Normal [facility] Anion gap in Serum or Plasma Ordered By: Khadar Valencia on 08-12-2024 Anion gap [Moles/Vol] 14 mmol/L - [facility] BUN/creatinine ratioOrdered By: Khadar Valencia on 08-12-2024 Urea nitrogen/Creatinine [Mass ratio] 30.2 mg/mg High - [facility] Basic Metabolic Profile (BMP )on 08-12-2024 BUN/CRE 30.2 RATIO High 01-18 [facility] Comment on above: Performed By: #### L 503.6722, L500.2500 ####[facility] [address] [place], [address] Calcium [Mass/Vol] 9.6 mg/dL Normal 7.6-11.0 [facility] Comment on above: Performed By: #### L 503.7505, L500.2500 ####[facility] [address] [place], [address] Chloride [Moles/Vol] 98 mmol/L Normal 98-108 [facility] Comment on above: Performed By: #### L 503.7505, L500.2500 ####[facility] [address] [place], [address] CO2 [Moles/Vol] 25.1 mmol/L Normal 21.0-32.0 [facility] Comment on above: Performed By: #### L 503.7505, L500.2500 ####[facility] [address] [place], [address] Creatinine [Mass/Vol] 1.31 mg/dL High 0.70-1.20 [facility] Comment on above: Performed By: #### L 503.7505, L500.2500 ####[facility] [address] [place], [address] GAP 14 Normal 5-15 [facility] Comment on above: Performed By: #### L 503.7505, L500.2500 ####[facility] [address] [place], [address] GFR/1.73 sq M.predicted among non-blacks MDRD (S/P/Bld) [Vol rate/Area] 62 mL/min/{1.73_m2} Normal >60 [facility] Comment on above: Result Comment: mL/m in/1.73m2 CKD-EPI Creatinine Equation (2020) Performed By: #### L 503.7505, L500.2500 ####[facility] [address] [place], [address] Glucose [Mass/Vol] 104 mg/dL High 70-99 [facility] Comment on above: Performed By: #### L 503.7505, L500.2500 ####[facility] [address] [place], [address] Potassium [Moles/Vol] 4.4 mmol/L Normal 3.3-5.1 [facility] Comment on above: Performed By: #### L 503.7505, L500.2500 ####[facility] [address] [place], [address] Sodium [Moles/Vol] 137 mmol/L Normal 133-145 [facility] Comment on above: Performed By: #### L 503.7505, L500.2500 ####[facility] [address] [place], [address] Urea nitrogen [Mass/Vol] 40 mg/dL High 4-19 [facility] Comment on above: Performed By: #### L 503.7505, L500.2500 ####[facility] [address] [place], [address] Carbon dioxide, total [Moles /volume] in Central venous bloodOrdered By: Khadar Valencia on 08-12-2024 CO2 [Moles/Vol] 25.1 mmol/L 21.0-32.0 [facility] Chest PA and Lateralon 08-12 Chest PA and Lateral Normal [facility] Chloride assayOrdered By: James Valencia on 08-12-2024 Chloride [Moles/Vol] 98 mmol/L 98-108 [facility] Glomerular filtration rate ( GFR) estimation/1.73 sq m using serum, plasma, or whole bOrdered By: Khadar Valencia on 08-12-2024 GFR/1.73 sq M.predicted among non-blacks MDRD (S/P/Bld) [Vol rate/Area] 62 mL/min/{1.73_m2} >60 [facility] Comment on above: mL/min/1.73m2 CKD-EP I Creatinine Equation (2020) L503.7505on 08-12-2024 Natriuretic peptide B (Bld) [Mass/Vol] 626 pg/mL Normal <=900 [facility] Comment on above: Result Comment: Hear t Failure Unlikely: < 300 pg/mLHeart Failure Likely< 50 Years: > 450 pg/mL50-75 Years: > 900 pg/mL>75 Years: > 1800 pg/mL Performed By: #### L 503.7505, L500.2500 ####[facility] [address] [place], [address] Natriuretic peptide.B prohor renea N-Terminal [Mass/volume] in Serum or PlasmaOrdered By: Khadar Valencia on 08-12-2024 Natriuretic peptide.B prohormone N-Terminal [Mass/Vol] 626 pg/mL <900 [facility] Comment on above: Heart Failure Unlike ly: < 300 pg/mLHeart Failure Likely< 50 Years: > 450 pg/mL50-75 Years: > 900 pg/mL>75 Years: > 1800 pg/mL Potassium measurement (mass/ volume)Ordered By: Khadar Valencia on 08-12-2024 Potassium (Unsp spec) [Mass/Vol] 4.4 mmol/L 3.3-5.1 [facility] Serum creatinine measurement (mass/volume)Ordered By: Khadar Valencia on 08-12-2024 Creatinine [Mass/Vol] 1.31 mg/dL High 0.70-1.20 [facility] Serum glucose measurement (m ass/volume)Ordered By: Khadar Valencia on 08-12-2024 Glucose [Mass/Vol] 104 mg/dL High 70-99 [facility] Serum or plasma calcium grazyna urement (mass/volume)Ordered By: Khadar Valencia on 08-12-2024 Calcium [Mass/Vol] 9.6 mg/dL 7.6-11.0 [facility] Serum or plasma urea nitroge n measurement (mass/volume)Ordered By: Khadar Valencia on 08-12-2024 Urea nitrogen [Mass/Vol] 40 mg/dL High 4-19 [facility] Sodium levelOrdered By: Junior king Demiter on 08-12-2024 Sodium [Moles/Vol] 137 mmol/L 133-145 [facility] Office Visit Reporton 2024 Office Visit Report Normal [facility] ALDOLASEon 08-02-2024 ALDOLASE 4.6 U/L Normal < OR = 8.1 [facility] Comment on above: Performed By: #### 9 3428, 1759 #### [facility] [address], [address] [place] [address] Security Software Engineer: Octavio Segovia MD RICARDO CASCADE(RICARDO,IFA W/RFL AN [...] AC-0: Negative International Consensus on RICARDO Patterns (https://doi.org/10.1515/rave-5847-2994) For additional information, please refer to http://education.GoToTags.Software Artistry/faq/VKQ251 (This link is being provided for informational/ educational purposes only.) Performed By: #### 9 2317, 1759 #### [facility] [address], [address] [place] [address] Security Software Engineer: Octavio Segovia MD ANCA SCREEN WITH MPO [...] other disorders. Performed By: #### 2 27, 8438, 4420, 77344, 809, 33475, 374 #### [facility] [place] [address] [facility], [address] [place] [address] Security Software Engineer: Octavio Segovia MD #### 90436, 81135 #### [facility], [address] [place] [address] Security Software Engineer: Alejandra Queen MD,PhD,FADIA #### [id number] #### [facility] [address] [facility] [place], [place] Security Software Engineer: Waldemar Billy M.D.,PhD MYELOPEROXIDASE ANTIBODY <1.0 Normal <1.0 [facility] Comment on above: Result Comment: Value Interpretation [...] Performed By: #### 2 27, 4418, 4420, 97556, 809, 34034, 374 #### [facility] [address], [address] [place] [address] Security Software Engineer: Octavio Segovia MD #### 98444, 53992 #### [facility], [address] [place] [address] Security Software Engineer: Alejandra Queen MD,PhD,FADIA #### [id number] #### [facility] [address] [facility] [place], [place] Security Software Engineer: Waldemar Billy M.D.,PhD PROTEINASE-3 ANTIBODY <1.0 Normal <1.0 [facility] [employer] Comment on above: Result Comment: Value Interpretation <1.0 AI: No Antibody Detected >or=1.0 AI: Antibody Detected Autoantibodies to proteinase-3 (NY-3) are accepted as characteristic for granulomatosis with polyangiitis (GPA, Kaylen's), and are detectable in 95% of the histologically proven cases. The cytoplasmic IFA pattern, (c-ANCA), is based largely on autoantibody to NY-3 which serves as the primary antigen. These autoantibodies are present in active disease. Performed By: #### 2 27, 4418, 4420, 33413, 809, 61256, 374 #### [facility] [address], [address] [place] [address] Security Software Engineer: Octavio Segovia MD #### 94269, 10704 #### [facility], [address] [place], [place] Security Software Engineer: Alejandra Queen MD,PhD,FADIA #### [id number] #### [facility]/[address] [place], [place] Security Software Engineer: Waldemar Billy M.D.,PhD C-REACTIVE PROTEINon 025 CRP [Mass/Vol] 10.6 mg/L High <8.0 [facility] Comment on above: Performed By: #### 2 27, 4418, 4420, 02647, 809, 33440, 374 #### [facility] [address], [address] [place] [address] Security Software Engineer: Octavio Segovia MD #### 60408, 53315 #### [facility], [address] [place] [address] Security Software Engineer: Alejandra Queen MD,PhD,FADIA #### 11077 #### [facility]/[place] [id number] [facility] [address] [place], [place] Security Software Engineer: Waldemar Billy M.D.,PhD CREATINE KINASE, TOTALon CREATINE KINASE, TOTAL 46 U/L Normal 22-308 [facility] Comment on above: Performed By: #### 2 27, 4418, 4420, 75569, 809, 53903, 374 #### [facility] [address] [facility], [address] [place] [address] Security Software Engineer: Octavio Segovia MD #### 44339, 49671 #### [facility], [address] [place] [address] Security Software Engineer: Alejandra Queen MD,PhD,FADIA #### [id number] #### [facility]/[place] [id number] [facility] [address] [place], [place] Security Software Engineer: Waldemar Billy M.D.,PhD CYCLIC CITRULLINATED PEPTIDE (CCP) AB (IGG)on 08-02-2024 CYCLIC CITRULLINATED PEPTIDE (CCP) AB (IGG) <16 Normal [facility] Comment on above: Result Comment: Refe rence Range Negative: <20 Weak Positive: 20-39 Moderate Positive: 40-59 Strong Positive: >59 Performed By: #### 2 27, 4418, 4420, 93597, 809, 84677, 374 #### [facility] [address] [facility], [address] [place] [address] Security Software Engineer: Octavio Segovia MD #### 21672, 71413 #### [facility], [address] [place] [address] Security Software Engineer: Alejandra Queen MD,PhD,FADIA #### 97705 #### [facility] [address] [place], [place] Security Software Engineer: Waldemar Billy M.D.,PhD EXTENDED MYOSITIS SPECIFIC A [...] analytical performance characteristics have been determined by [employer]. It has not been cleared or approved by the FDA. This assay has been validated pursuant to the CLIA regulations and is used for clinical purposes. Performed By: #### 2 , 1908, 4420, 47380, 809, 74374, 374 #### [employer] [address] [address] Security Software Engineer: Octavio Segovia MD #### 72027, 97257 #### [facility]/[place] [address] [place] [address] Security Software Engineer: Aeljandra Queen MD,PhD,FADIA #### [id number] #### [facility] [address] [place] [address] Security Software Engineer: Waldemar Billy M.D.,PhD EJ AB <11 Normal <11 [facility] Comment on above: Order Comment: FASTI NG:NO FASTING: NO Performed By: #### 2 27, 4418, 4420, 23481, 809, 30387, 374 #### [facility] [address] [place] [address] Security Software Engineer: Octavio Segovia MD #### 98488, 12213 #### [facility]/[address] [address] Security Software Engineer: Alejandra Queen MD,PhD,FADIA #### 41009 #### [facility]/[address] [place], [place] Security Software Engineer: Waldemar Billy M.D.,PhD HMGCR AB (IGG) <2 Normal <20 [facility] Comment on above: Order Comment: FASTI NG:NO FASTING: NO Result Comment: 7-Pewuuxc-2-Methylglutaryl-Coenzyme A Reductase (HMGCR) Ab is associated with necrotizing myopathy and is often found with the use of statin medications. Rarely, HMGCR Ab associated myositis has also been seen in patients ingesting mushrooms and other foods. Performed By: #### 2 27, 4418, 4420, 98858, 809, 85167, 374 #### [facility] [address], [address] [place] [address] Security Software Engineer: Octavio Segovia MD #### 62225, 33370 #### [facility]/[address] Security Software Engineer: Alejandra Queen MD,PhD,FADIA #### 88544 #### [facility] [address] [facility] [place], [place] Security Software Engineer: Waldemar Billy M.D.,PhD SAMANTHA-1 AB <11 Normal <11 [facility] Comment on above: Order Comment: FASTI NG:NO FASTING: NO Performed By: #### 2 27, 4418, 4420, 52257, 809, 33795, 374 #### [facility] [address], [address] [place] [address] Security Software Engineer: Octavio Segovia MD #### 57753, 51623 #### [facility], [address] [facility] [place] Security Software Engineer: Alejandra Queen MD,PhD,FADIA #### [id number] #### [facility]/[address] [place], [place] Security Software Engineer: Waldemar Billy M.D.,PhD MDA5 AB <11 Normal <11 [facility] Diagnostics Comment on above: Order Comment: FASTI NG:NO FASTING: NO Performed By: #### 2 27, 4418, 4420, 43216, 809, 63635, 374 #### [facility] [address], [address] [address] Security Software Engineer: Octavio Segovia MD #### [id number], [id number] #### [facility], [address] [place] Security Software Engineer: Alejandra Queen MD,PhD,FADIA #### [id number] #### [facility]/[address] [place], [place] Security Software Engineer: Waldemar Billy M.D.,PhD AZ-2 ALPHA AB <11 Normal <11 [facility] Comment on above: Order Comment: FASTI NG:NO FASTING: NO Performed By: #### 2 27, 4418, 4420, 29617, 809, 75491, 374 #### [facility] [address], [address] [address] Security Software Engineer: Octavio Segovia MD #### 75070, 66941 #### [facility], [address] [place], [place] Security Software Engineer: Alejandra Queen MD,PhD,FADIA #### [id number] #### [facility]/[address] [place], [place] Security Software Engineer: Waldemar Billy M.D.,PhD AZ-2 BETA AB <11 Normal <11 [facility] Comment on above: Order Comment: FASTI NG:NO FASTING: NO Performed By: #### 2 27, 4418, 4420, 34068, 809, 96117, 374 #### [facility] [address] [facility], [address] [place] [address] Security Software Engineer: Octavio Segovia MD #### [phone], 55629 #### [facility], [address] [place] [address] Security Software Engineer: Alejandra Queen MD,PhD,FADIA #### [id number] #### [facility] [address] [facility] [place], [place] Security Software Engineer: Waldemar Billy M.D.,PhD NXP-2 AB <11 Normal [...] with a rash. Additionally, MSAs to MDA5 (ICQA628) have been identified in patients with clinically [...] analytical performance characteristics have been determined by [employer]. It has not been cleared or approved by the FDA. This assay has been validated pursuant to the CLIA regulations and is used for clinical purposes. Performed By: #### 2 27, 4418, 4420, 59299, 809, 07940, 374 #### [facility] [address], [address] [place] [address] Security Software Engineer: Octavio Segovia MD #### [id number], 72459 #### [facility], [address] [place] [address] Security Software Engineer: Alejandra Queen MD,PhD,FADIA #### [id number] #### [facility]/[place] [id number] [facility] [place], [place] Security Software Engineer: Waldemar Billy M.D.,PhD AB <11 Normal <11 [facility] Comment on above: Order Comment: FASTI NG:NO FASTING: NO Performed By: #### 2 27, 4418, 4420, 40348, 809, 30147, 374 #### [facility] [place] [address] Security Software Engineer: Octavio Segovia MD #### 77423, 67734 #### [facility], [address] [place] [address] Security Software Engineer: Alejandra Queen MD,PhD,FADIA #### [id number] #### [facility]/[place] [id number] [facility] [place], [place] Security Software Engineer: Waldemar Billy M.D.,PhD -12 AB <11 Normal <11 [facility] Comment on above: Order Comment: FASTI NG:NO FASTING: NO Performed By: #### 2 27, 4418, 4420, 10761, 809, 17858, 374 #### [facility] [address] [place], [place] [id number] Security Software Engineer: Octavio Segovia MD #### [id number], 64196 #### [facility], [address] [facility] [place] Security Software Engineer: Alejandra Queen MD,PhD,FADIA #### [id number] #### [facility]/[address] [place], [place] Security Software Engineer: Waldemar Billy M.D.,PhD PL-7 AB <11 Normal <11 [facility] Comment on above: Order Comment: FASTI NG:NO FASTING: NO Performed By: #### 2 27, 4418, 4420, 73210, 809, 98948, 374 #### [facility] of [place] [address] [address] , [address] [place], [place] [phone] Security Software Engineer: Octavio Segovia MD #### 54757, 31433 #### [facility] [address] [place], [place] Security Software Engineer: Alejandra Queen MD,PhD,FADIA #### [id number] #### [facility]/[address] [place], [place] Security Software Engineer: Waldemar Billy M.D.,PhD [facility] AB <11 Normal <11 [facility] Comment on above: Order Comment: FASTI NG:NO FASTING: NO Performed By: #### 2 27, 4418, 4420, 90169, 809, 35196, 374 #### [facility] of [place] [address] [address] , [address] [place] [address] Security Software Engineer: Octavio Segovia MD #### 06707, 27853 #### [facility], [address] [facility] [place] Security Software Engineer: Alejandra Queen MD,PhD,FADIA #### 67330 #### [facility]/[place] [id number] [facility] [address] [place], [place] Security Software Engineer: Waldemar Billy M.D.,PhD TIF1 GAMMA AB <11 Normal <11 [facility] Comment on above: Order Comment: FASTI NG:NO FASTING: NO Performed By: #### 2 27, 4418, 4420, 43119, 809, 12650, 374 #### [facility] [place] [address], [address] [place] [address] Security Software Engineer: Octavio Segovia MD #### 87807, 35536 #### [facility], [address] [place], [place] Security Software Engineer: Alejandra Queen MD,PhD,FADIA #### 77980 #### [facility]/[place] [address] [facility] [place], [place] Security Software Engineer: Waldemar Billy M.D.,PhD HYPERSENSITIVITY PNEUMONITIS SCREENon 08-02-2024 ASPERGILLUS FUMIGATUS Negative Normal NEGATIVE Que st Diagnostics Comment on above: Performed By: #### 2 27, 4418, 4420, 06959, 809, 09952, 374 #### [facility] [address], [address] [place] [address] Security Software Engineer: Octavio Segovia MD #### 38988, 90764 #### [facility], [address] [place], [place] Security Software Engineer: Alejandra Queen MD,PhD,FADIA #### 73416 #### [facility] [address] [place], [place] Security Software Engineer: Waldemar Billy M.D.,PhD MICROPOLYSPORA FAENI Negative Normal NEGATIVE Ques t Diagnostics Comment on above: Performed By: #### 2 27, 4418, 4420, 39359, 809, 10042, 374 #### [facility] of [address] , [address] [place] [place] [address] Security Software Engineer: Octavio Segovia MD #### 08620, 47146 #### [facility], [address] [facility], [place] [phone] Security Software Engineer: Alejandra Queen MD,PhD,FADIA #### [id number] #### [facility]/[address] [place], [place] Security Software Engineer: Waldemar Billy M.D.,PhD PIGEON SERUM Negative Normal NEGATIVE [facility] Comment on above: Performed By: #### 2 27, 4418, 4420, 37418, 809, 32451, 374 #### [facility] [address], [address] [place] [place] [address] Security Software Engineer: Octavio Segovia MD #### 75004, 63274 #### [facility], [address] [facility], [place] [phone] Security Software Engineer: Alejandra Queen MD,PhD,FADIA #### 07778 #### [facility]/[address] [place], [place] Security Software Engineer: Waldemar Billy M.D.,PhD S. VIRIDIS Negative Normal NEGATIVE [facility] Comment on above: Result Comment: This test was developed and its analytical performance characteristics have been determined by [employer]. It has not been cleared or approved by the FDA. This assay has been validated pursuant to the CLIA regulations and is used for clinical purposes. Performed By: #### 2 27, 4418, 4420, 10139, 809, 86822, 374 #### [facility] of [place] [address] , [address] [place] [address] Security Software Engineer: Octavio Segovia MD #### 22735, 30921 #### [facility], [address] [place], [place] Security Software Engineer: Alejandra Queen MD,PhD,FADIA #### [id number] #### [facility]/[address] [place], [place] Security Software Engineer: Waldemar Billy M.D.,PhD T. CANDIDUS Negative Normal NEGATIVE [facility] Comment on above: Performed By: #### 2 27, 4418, 4420, 97229, 809, 36333, 374 #### [facility] of [facility] [address], [address] [place] [phone] Security Software Engineer: Octavio Segovia MD #### 07536, 96091 #### [facility], [address] [place] [address] Security Software Engineer: Alejandra Queen MD,PhD,FADIA #### [id number] #### [facility]/[address] [place], [place] Security Software Engineer: Waldemar Billy M.D.,PhD T. VULGARIS Negative Normal NEGATIVE [facility] Comment on above: Performed By: #### 2 27, 4418, 4420, 05138, 809, 06592, 374 #### [facility] [address], [address] [place] [phone] Security Software Engineer: Octavio Segovia MD #### 71517, 98607 #### [facility], [address] [place], [place] Security Software Engineer: Alejandra Queen MD,PhD,FADIA #### 85718 #### [facility]/[address] [place], [place] Security Software Engineer: Waldemar Billy M.D.,PhD RHEUMATOID FACTORon 08-03-19 25 RHEUMATOID FACTOR 41 IU/mL High <14 [facility] Comment on above: Performed By: #### 2 27, 4418, 4420, 63833, 809, 38602, 374 #### [facility] [address], [address] [place] [address] Security Software Engineer: Octavio Segovia MD #### 90358, 60821 #### [facility], [address] [place] [address] Security Software Engineer: Alejandra Queen MD,PhD,FADIA #### [id number] #### [facility]/[place] [id number] [facility] [place], [place] Security Software Engineer: Waldemar Billy M.D.,PhD SED RATE BY MODIFIED WESTERG RENon 08-02-2024 SED RATE BY MODIFIED WESTERGREN 36 mm/h High < OR = 20 [facility] Comment on above: Performed By: #### 2 27, 4418, 4420, 31968, 809, 92256, 374 #### [facility] [address], [address] [place] [address] Security Software Engineer: Octavio Segovia MD #### 71415, 73471 #### [facility], [address] [place], [place] Security Software Engineer: Alejandra Queen MD,PhD,FADIA #### [id number] #### [facility] [place], [place] Security Software Engineer: Waldemar Billy M.D.,PhD TRANSTHORACIC ECHO (TTE) [facility] PLETE 07-23-2024 TRANSTHORACIC ECHO (TTE) COMPLETE [facility] [address], [address], [place] [address] TRANSTHORACIC ECHOCARDIOGRAM REPORT Patient Name: KRUNAL LEOS Reading Physician: [id number] David Nguyễn MD Study Date: 07/23/2024 Ordering Provider: [id number] PADRON MRN/PID: [id number] Fellow: Nurse: Date of /Age: 5 1965 Nuclear Control Room Operator: Ena hernandez RDCS Gender assigned at M Additional Staff: : Height: 175.26 cm Admit Date: Weight: 141.07 kg Admission Status: Outpatient BSA / BMI: 2.49 m2 / 45.93 kg/m2 Blood Pressure: 157/78 mmHg Department Location: [facility] Study Type: TRANSTHORACIC ECHO (TTE) COMPLETE Diagnosis/ICD: Pulmonary hypertension, unspecified-I27.20 Indication: Pulmonary hypertension CPT Code: Echo Complete w Full Doppler-[id number] Study Detail: The following Echo studies were [...] VEINS: PulmV A Revs Dur: 121.00 msec [id number] David Nguyễn MD Electronically signed on 07/24/2024 at 9:17:53 AM Final [facility] CT CHEST HIGH RESOLUTIONon 0 07-20-2024 CT CHEST HIGH RESOLUTION Interpreted By: Rosita Bolaños, STUDY: CT CHEST HIGH RESOLUTION; 07/20/2024 12:56 pm INDICATION: Signs/Symptoms:ILD. COMPARISON: None. ACCESSION NUMBER(S): [id number] ORDERING CLINICIAN: ROSALINO PADRON TECHNIQUE: Using helical [...] in 12 months may be obtained. (Konrad MacMahon et al., Guidelines for management of incidental pulmonary nodules detected on CT images: From the Fleischner Society 2017, Radiology. 2017 Sep;284 (1):228-243.) FLEISCHNER.ACR.IF.1 MACRO: None Signed by: Julissa Banuelos 07/20/2024 1:33 PM Dictation workstation: [id number] [facility] CT Cheston 07-20-2024 1. Extensive subpleu [...] in 12 months may be obtained. (Konrad MacMahon et al., Guidelines for management of incidental pulmonary nodules detected on CT images: From the Fleischner Society 2017, Radiology. 2017 Sep;284 (1):228-243.) FLEISCHNER.ACR.IF.1 MACRO: None Signed by: Julissa Banuelos 07/20/2024 1:33 PM Dictation workstation: [id number] MMODAL Interpreted By: Julissa Pleitez, STUDY: CT CHEST HIGH RESOLUTION; 07/20/2024 12:56 pm INDICATION: Signs/Symptoms:ILD. COMPARISON: None. ACCESSION NUMBER(S): [id number] ORDERING CLINICIAN: ROSALINO PADRON TECHNIQUE: Using helical [...] pm INDICATION: Signs/Symptoms:ILD. COMPARISON: None. ACCESSION NUMBER(S): [id number] ORDERING CLINICIAN: ROSALINO PADRON TECHNIQUE: Using helical [...] Julissa Banuelos 07/20/2024 1:33 PM Dictation workstation: [id number] [facility] Work Phone: Radiology Study observation (narrative) [facility] Work Phone: CT ChestOrdered By: Julissa Banuelos on 07-20-2024 [facility] Work Phone: Office Visit Reporton 2024 [facility] Visit Report [facility] Reporton Pulmonary Visit Report Normal [facility] Office Visit Reporton 2024 Office Visit Report [facility]on 06-01-2024 36 Patient called in as [...] and to seek medical attention immediately. Normal [facility] 12 Lead E[facility] performed by [facility] [place] 05-21-2024 12 Lead EKG performed by [facility] Normal [facility] Basic Metabolic Profile (BMP )on 05-21-2024 BUN/CRE 21.2 RATIO High 01-18 [facility] Comment on above: Performed By: #### L 500.2500 ####[facility] [address] [place] [address] [place],Total 9.6 mg/dL Normal 8.5-10.1 [facility] Comment on above: Performed By: #### L 500.2500 ####[facility] [address] [place] [address] Chloride [Moles/Vol] 99 mmol/L Normal 98-107 [facility] Comment on above: Performed By: #### L 500.2500 ####[facility] [address] [place] [id number] CO2 [Moles/Vol] 26.0 mmol/L Normal 21.0-32.0 [facility] Comment on above: Performed By: #### L 500.2500 ####[facility] [address] [place] [phone] Creatinine [Mass/Vol] 1.60 mg/dL High 0.70-1.30 [facility] Comment on above: Result Comment: The validity of the calculated GFR GFRAA in patients over70 years has not been determined. Clinical correlation isessential. Performed By: #### L 500.2500 ####[facility] [address] [place] [id number] EST GFR - AA 57 mL/min Low >60 [facility] Comment on above: Result Comment: Afri can [place] Citizen GFR Calc Performed By: #### L 500.2500 ####[facility] [address] [place], [address] GAP 12 Normal 5-15 [facility] Comment on above: Performed By: #### L 500.2500 ####[facility] [address] [place], [address] GFR/1.73 sq M.predicted among non-blacks MDRD (S/P/Bld) [Vol rate/Area] 47 mL/min/{1.73_m2} Low >60 [facility] Comment on above: Result Comment: Non- GFR Calc Performed By: #### L 500.2500 ####[facility] [address] [place], [address] Glucose [Mass/Vol] 174 mg/dL High 74-106 [facility] Comment on above: Result Comment: Fast ing Glucose result greater than or equal to 126 mg/dLsuggests DIABETES MELLITUS per A.D.A. criteria. Performed By: #### L 500.2500 ####[facility] [address] [place], [address] Potassium [Moles/Vol] 3.8 mmol/L Normal 3.5-5.1 [facility] Comment on above: Performed By: #### L 500.2500 ####[facility] [address] [place], [address] Sodium [Moles/Vol] 136 mmol/L Normal 136-145 [facility] Comment on above: Performed By: #### L 500.2500 ####[facility] [address] [place], [address] Urea nitrogen [Mass/Vol] 34 mg/dL High 7-18 [facility] Comment on above: Performed By: #### L 500.2500 ####[facility] [address] [place], [address] Bilirubin directOrdered By: SAV Rojas on 05-21-2024 Bilirubin.direct [Mass/Vol] 0.32 mg/dL High 0.00-0.30 [facility] Bilirubin, totalOrdered By: SAV Rojas on 05-21-2024 Bilirubin [Mass/Vol] 1.40 mg/dL High 0.20-1.00 [facility] Comment on above: For patients on eltr ombopag therapy, use of Dimension [place] TBIL is not recommended. Blood urea nitrogen (BUN)/cr eatinine ratioOrdered By: Lydia Segura on 05-21-2024 Urea nitrogen/Creatinine [Mass ratio] 21.2 mg/mg High 10-20 [facility] Carbon dioxide measurementOr dered By: Lydia Segura on 05-21-2024 CO2 [Moles/Vol] 26.0 mmol/L 21.0-32.0 [facility] Cardiology Visit Reporton Cardiology Visit Report Normal [facility] Chloride measurementOrdered By: Lydia Segura on 05-21-2024 Chloride [Moles/Vol] 99 mmol/L 98-107 [facility] Glomerular filtration rate ( GFR) estimationOrdered By: Lydia Segura on 05-21-2024 GFR/1.73 sq M.predicted among non-blacks MDRD (S/P/Bld) [Vol rate/Area] 47 mL/min/{1.73_m2} Low >60 [facility] Comment on above: Non- GFR Calc Glucose measurementOrdered B y: Lydia Segura on 05-21-2024 Glucose [Mass/Vol] 174 mg/dL High 74-106 [facility] Comment on above: Fasting Glucose resu lt greater than or equal to 126 mg/dL suggests DIABETES MELLITUS per A.D.A. criteria. Laboratory - Chemistry and C hemistry - challengeOrdered By: SAV Rojas on 05-21-2024 AST [Catalytic activity/Vol] 18 U/L 15-37 [facility] Liver Profileon 05-21-2024 Albumin [Mass/Vol] 3.4 g/dL Normal 3.2-5.0 [facility] Comment on above: Order Comment: 1 mo. after 1st dose of OFEV, monthly for 1st 3 mo Performed By: #### L 500.3400 ####[facility] [address] [place], [address] ALK P 81 U/L Normal 45-117 [facility] Comment on above: Order Comment: 1 mo. after 1st dose of OFEV, monthly for 1st 3 mo Performed By: #### L 500.3400 ####[facility] [address] [place], [address] ALT [Catalytic activity/Vol] 17 U/L Normal 16-61 [facility] Comment on above: Order Comment: 1 mo. after 1st dose of OFEV, monthly for 1st 3 mo Performed By: #### L 500.3400 ####[facility] [address] [place], [address] AST [Catalytic activity/Vol] 18 U/L Normal 15-37 [facility] Comment on above: Order Comment: 1 mo. after 1st dose of OFEV, monthly for 1st 3 mo Performed By: #### L 500.3400 ####[facility] [address] [place], [address] Bilirubin [Mass/Vol] 1.40 mg/dL High 0.20-1.00 [facility] Comment on above: Order Comment: 1 mo. after 1st dose of OFEV, monthly for 1st 3 mo Result Comment: For patients on eltrombopag therapy, use of Dimension [place] TBIL is not recommended. Performed By: #### L 500.3400 ####[facility] [address] [place], [address] Bilirubin.direct [Mass/Vol] 0.32 mg/dL High 0.00-0.30 [facility] Comment on above: Order Comment: 1 mo. after 1st dose of OFEV, monthly for 1st 3 mo Performed By: #### L 500.3400 ####[facility] [address] [place], [place], [id number] Globulin (S) [Mass/Vol] 5.1 g/dL High 2.2-4.[address] [facility] Comment on above: Order Comment: 1 mo. after 1st dose of OFEV, monthly for 1st 3 mo Performed By: #### L 500.3400 ####[facility] [address] [place], [address] T PROT 8.5 g/dL High 6.4-8.2 [facility] Comment on above: Order Comment: 1 mo. after 1st dose of OFEV, monthly for 1st 3 mo Performed By: #### L 500.3400 ####[facility] [address] [place], [place], [id number] No Panel InformationOrdered By: SAV Rojas on 05-21-2024 18 U/L 15-37 [facility] Potassium measurementOrdered By: Lydia Segura on 05-21-2024 Potassium [Moles/Vol] 3.8 mmol/L 3.5-5.1 [facility] Serum anion gap measurementO rdered By: Lydia Segura on 05-21-2024 Anion gap [Moles/Vol] 12 mmol/L 5-15 [facility] Serum globulin measurementOr dered By: SAV Rojas on 05-21-2024 Globulin (S) [Mass/Vol] 5.1 g/dL High 2.2-4.2 [facility] Serum or plasma alanine briscoe otransferase (ALT) measurementOrdered By: SAV Rojas on 05-21-2024 ALT [Catalytic activity/Vol] 17 U/L 16-61 [facility] Serum or plasma albumin grazyna urement (mass/volume)Ordered By: SAV Rojas on 05-21-2024 Albumin [Mass/Vol] 3.4 g/dL 3.2-5.0 [facility] Serum or plasma alkaline benjamin sphatase measurementOrdered By: SAV Rojas on 05-21-2024 ALP [Catalytic activity/Vol] 81 U/L 45-117 [facility] Serum or plasma calcium grazyna urement (mass/volume)Ordered By: Lydia Segura on 05-21-2024 Calcium [Mass/Vol] 9.6 mg/dL 8.5-10.1 [facility] Serum or plasma creatinine m easurement (mass/volume)Ordered By: Lydia Segura on 05-21-2024 Creatinine [Mass/Vol] 1.60 mg/dL High 0.70-1.30 [facility] Comment on above: The validity of the calculated GFR & GFRAA in patients over 70 years has not been determined. Clinical correlation is essential. Serum or plasma urea nitroge n measurement (mass/volume)Ordered By: Lydia Segura on 05-21-2024 Urea nitrogen [Mass/Vol] 34 mg/dL High 7-18 [facility] Sodium levelOrdered By: Macho Segura on 05-21-2024 Sodium [Moles/Vol] 136 mmol/L 136-145 [facility] Total proteinOrdered By: SAV Rojas on 05-21-2024 Protein [Mass/Vol] 8.5 g/dL High 6.4-8.2 [facility] 36on 05-13-2024 36 Patient lvm with questions about what medications he should be taking post op. I returned his call but had to [facility] with call back number. [facility] 36on 05-08-2024 36 Spoke with Mr. Anibal [...] - 1 year. Sooner prstan Culp MD Normal [facility] ECG 12-LEADon 05-07-2024 ECG 12-LEAD IMPRESSION: Sinus rhythm Atrial premature complex LVH with IVCD and secondary repol abnrm Inferior infarct, age indeterminate Electronically Signed On 05-07-2024 10:34:37 EST by Krunal Allen Normal [facility] APTTon 05-06-2024 aPTT Coag (Bld) [Time] 22.1 s Normal 20.0-30.5 [facility] Comment on above: Result Comment: DAPHNE Lang COMMENTS: NOTE: The therapeutic time for Heparin anticoagulation, based on Xa activity inhibition, is an APTT of 46-80 seconds. Performed By: #### L AB320, IZA039 ####Security Software Engineer: RADHA SIMMONS ([id number])[facility])[address] [place] [address] BASIC METABOLIC PANELon Anion gap [Moles/Vol] 9 mmol/L Normal 3-13 [facility] Comment on above: Performed By: #### L AB15 ####Security Software Engineer: RADHA SIMMONS ([id number])[facility])[address] [place] [address] Calcium [Mass/Vol] 8.5 mg/dL Low 8.8-10.0 [facility] Comment on above: Performed By: #### L AB15 ####Security Software Engineer: RADHA SIMMONS ([id number])[facility] ([facility])[address] [place] [address] [place] Chloride [Moles/Vol] 103 mmol/L Normal 98-107 [facility] Comment on above: Performed By: #### L AB15 ####Security Software Engineer: RADHA SIMMONS ([id number])[facility] ([facility])[address] [place] [address] CO2 [Moles/Vol] 22 mmol/L Normal 22-29 [facility] Comment on above: Performed By: #### L AB15 ####Security Software Engineer: RADHA SIMMONS ([id number])[facility])[address] [place] [address] Creatinine [Mass/Vol] 0.96 mg/dL Normal 0.72-1.25 [facility] Comment on above: Performed By: #### L AB15 ####Security Software Engineer: RADHA SIMMONS ([id number])[facility])[address] [place] [address] GLOMERULAR FILTRATION RATE ML/MIN/1.73 SQ M.PREDICTED >90.0 Normal >60.0 [facility] Comment on above: Result Comment: Calc ulation based on the Chronic Kidney Disease Epidemiology Collaboration (CKD-EPI) equation refit without adjustment for race Performed By: #### L AB15 ####Security Software Engineer: RADHA SIMMONS ([id number])[facility])[address] [place] [address] Glucose [Mass/Vol] 107 mg/dL High 74-100 [facility] Comment on above: Performed By: #### L AB15 ####Security Software Engineer: RADHA SIMMONS ([id number])[facility])[address] [place] [address] Potassium [Moles/Vol] 3.9 mmol/L Normal 3.5-5.1 [facility] Comment on above: Result Comment: TC Significant interference from hemolysis. Result integrity compromised. Interpret with caution. Performed By: #### L AB15 ####Security Software Engineer: RADHA SIMMONS ([id number])[facility])[address] [place] [address] Sodium [Moles/Vol] 134 mmol/L Low 136-145 [facility] Comment on above: Performed By: #### L AB15 ####Security Software Engineer: RADHA SIMMONS ([id number])[facility])[address] [place] [address] Urea nitrogen [Mass/Vol] 31 mg/dL High 9-23 [facility] Comment on above: Performed By: #### L AB15 ####Security Software Engineer: RADHA SIMMONS ([id number])[facility] ([facility])[address] [place] [address] Basic metabolic 1998 panelon 05-06-2024 Anion gap [Moles/Vol] 9 mmol/L 3 - 13 mmol/L [facility] Calcium [Mass/Vol] 8.5 mg/dL Low 8.8 - 10. 0 mg/dL [facility] Chloride [Moles/Vol] 103 mmol/L 98 - 10 7 mmol/L [facility] CO2 [Moles/Vol] 22 mmol/L 22 - 29 mmol/L [facility] Creatinine [Mass/Vol] 0.96 mg/dL 0.72 - 1.25 mg/dL [facility] GFR/1.73 sq M.predicted (S/P/Bld) [Vol rate/Area] - PINF [facility] Comment on above: Calculation based on the Chronic Kidney Disease Epidemiology Collaboration (CKD-EPI) equation refit without adjustment for race Glucose [Mass/Vol] 107 mg/dL High 74 - 100 mg/dL [facility] Interpretation and review of laboratory results Abnormal [facility] Potassium [Moles/Vol] 3.9 mmol/L 3.5 - 5.1 mmol/L [facility] Comment on above: TC Significant interference from hemolysis. Result integrity compromised. Interpret with caution. Sodium [Moles/Vol] 134 mmol/L Low 136 - 145 mmol/L [facility] Urea nitrogen [Mass/Vol] 31 mg/dL High 9 - 23 mg/dL [facility] CBC (HEMOGRAM)on 05-06-2024 Erythrocyte distribution width (RBC) [Ratio] 20.8 % High 11.5-15.0 [facility] Comment on above: Performed By: #### L AB294 ####Security Software Engineer: RADHA SIMMONS ([id number])[facility] ([facility])[address] [place] [address] Hematocrit (Bld) [Volume fraction] 30.1 % Low 40.0-52.0 [facility] Comment on above: Performed By: #### L AB294 ####Security Software Engineer: RADHA SIMMONS ([id number])[facility] ([facility])[address] [place] [address] Hemoglobin (Bld) [Mass/Vol] 9.0 g/dL Low 13.0-18.0 [facility] Comment on above: Performed By: #### L AB294 ####Security Software Engineer: RADHA SIMMONS ([id number])[facility] ([facility])[address] [place] [address] MCH (RBC) [Entitic mass] 22.5 pg Low 26.0-34.0 [facility] Comment on above: Performed By: #### L AB294 ####Security Software Engineer: RADHA SIMMONS ([id number])[facility] ([facility])[address] [place] [address] MCHC 29.9 % Low 30.5-36.0 [facility] Comment on above: Performed By: #### L AB294 ####Security Software Engineer: RADHA SIMMONS ([id number])[facility] ([facility])[address] [place] [address] MCV (RBC) [Entitic vol] 75.3 fL Low 77.0-99.0 [facility] Comment on above: Performed By: #### L AB294 ####Security Software Engineer: RADHA SIMMONS ([id number])[facility])[address] [place] [address] Platelet mean volume (Bld) [Entitic vol] 10.2 fL Normal 9.0-12.7 [facility] Comment on above: Performed By: #### L AB294 ####Security Software Engineer: RADHA SIMMONS ([id number])[facility] ([facility])[address] [place] [address] Platelets (Bld) [#/Vol] 243 10*3/uL Normal 140-440 [facility] Comment on above: Performed By: #### L AB294 ####Security Software Engineer: RADHA SIMMONS ([id number])[facility] ([facility])[address] [place] [address] RBC (Bld) [#/Vol] 4.00 10*6/uL Low 4.40-5.90 [facility] Comment on above: Performed By: #### L AB294 ####Security Software Engineer: RADHA SIMMONS ([id number])[facility] ([facility])[address] [place] [address] WBC (Bld) [#/Vol] 11.1 10*3/uL High 3.6-10.7 [facility] Comment on above: Performed By: #### L AB294 ####Security Software Engineer: RADHA SIMMONS ([id number])[facility] ([facility])[address] [place] [address] CBC panel Auto (Bld)Ordered By: Krupa Rodriguez on 05-06-2024 Erythrocyte distribution width (RBC) [Ratio] 20.8 % High 11.5 - 15.0 % [facility] Hematocrit (Bld) [Volume fraction] 30.1 % Low 40.0 - 52.0 % [facility] Hemoglobin (Bld) [Mass/Vol] 9 g/dL Low 13.0 - 18.0 g/dL [facility] Interpretation and review of laboratory results Abnormal [facility] MCH (RBC) [Entitic mass] 22.5 pg Low 26.0 - 34.0 pg [facility] MCHC (RBC) [Mass/Vol] 29.9 % Low 30.5 - 36.0 % [facility] MCV (RBC) [Entitic vol] 75.3 fL Low 77.0 - 99.0 fL [facility] Platelet mean volume (Bld) [Entitic vol] 10.2 fL 9.0 - 12.7 fL [facility] Platelets (Bld) [#/Vol] 243 10*3/uL 140 - 440 10*3/uL [facility] RBC (Bld) [#/Vol] 4 10*6/uL Low 4.40 - 5.90 10*6/uL [facility] WBC (Bld) [#/Vol] 11.1 10*3/uL High 3.6 - 10.7 10*3/uL [facility] Consulton 05-06-2024 Consult CONSULT NOTE: STROKE SERVICE [...] PLAN: 1. Obtain P2 Y12 study 2. [place] Brilinta 90 mg twice daily x 30 [...] 10 to 15 minutes. Was hospitalized at [place] and had Plavix added at that time. [...] Symptoms resolved. He was again hospitalized at [facility]. No medication changes were made. April [...] Pt denie (more content not included)... Normal [facility] Laboratory - Coagulationon 0 05-06-2024 PT Coag (Bld) [Time] 10.9 s 9.0 - 1 2.0 s [facility] No Panel InformationOrdered By: Ana Maria Mancini on 05-06-2024 Interpretation and review of laboratory results Normal [facility] PRU Test (P2Y12) 211 180 - PINF [facility] Jose Luis ben Comment on above: >180 - 376 PRU [P2Y1 2 Reaction Units] - No drug present 10-180 PRU [P2Y12 Reaction Units] - Decreased platelet reactivity to P2Y12 inhibitor. [facility] No Panel Informationon 05-06 Interpretation and review of laboratory results Normal [facility] Nursing Noteon 05-06-2024 Nursing Note Phase 2 care complet ed. Iv removed and dc instructions provided. Will dc to home with family Right groin site benign and neuro unchanged NIH 0 Normal [facility] Nursing Note Patient arrived from home, Dr. Culp in to speak with the patient regarding DCA with possible carotid stenting, consent obtained. Patient was placed supine on exam table prepped and draped in sterile fashion. Telemetry monitors placed, sedation provided by [facility]. Patient tolerated procedure well. Transfer to ICU. Normal [facility] PROTHROMBIN TIMEon INR Coag (PPP) [Relative time] 1.0 {INR} Normal 0.9-1.1 [facility] Comment on above: Result Comment: Luciano mmended [...] prevent Myocardial Infarction Performed By: #### L [id number], [id number] ####Security Software Engineer: RADHA SIMMONS ([id number])[facility] ([address] PT Coag (PPP) [Time] 10.9 s Normal 9.0-12.0 [facility] Comment on above: Performed By: #### L [id number], [id number] ####Security Software Engineer: RADHA SIMMONS ([id number])[facility] [employer] [facility] ([facility])[address] [id number] [place] PRU TEST (P2Y12)on 5 PRU TEST (P2Y12) 211 Normal >=180 [facility] [employer] [facility] Comment on above: Result Comment: >180 - 376 PRU [P2Y12 Reaction Units] - No drug present 10-180 PRU [P2Y12 Reaction Units] - Decreased platelet reactivity to P2Y12 inhibitor. Performed By: #### L [id number] ####Security Software Engineer: RADHA SIMMONS ([id number])[facility] [employer] [facility] ([facility])[address] [phone] [facility] PT Coag (Bld) [Time]on 05-06 INR Coag (PPP) [Relative time] 1 {INR} 0.9 - 1.1 [facility] [employer] Comment on above: Recommended Anticoag ulant Therapy: [...] MD Electronically Signed Date/Time: 05/06/2024 3:33 PM [facility] Patient Name: KRUNAL LEOS : 1965 [facility]#: [id number] Exam Date/Time: 05/06/2024 13:48 Procedure: IR ANGIOGRAM CEREBRAL W POSSIBLE INTERVENTION Ordering Provider: LOYA VALERIE 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 He has had multiple events despite treatment with Eliquis (for atrial fibrillation), ASA and clopidogrel. The most recent event was 2 weeks ago, and he follows in [place]. CTA was concerning for left ICA severe stenosis and he presented for conventional angiography to evaluate and treat carotid stenosis if present and further evaluate right MCA stenosis. Consent: The benefits, alternatives, and risks to the procedure including but not limited to stroke, bleed, infection, dissection, pseudoaneurysm, [place], renal failure, radiation injury, hair loss, contrast [...] 4F dilator was exchanged for a 5 Ch[place] short sheath over a guidewire. The short [...] The left midd (more content not included)... 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 He has had multiple events despite treatment with Eliquis (for atrial fibrillation), ASA and clopidogrel. The most recent event was 2 weeks ago, and he follows in [place]. CTA was concerning for left ICA severe stenosis and he presented for conventional angiography to evaluate and treat carotid stenosis if present and further evaluate right MCA stenosis. Consent: The benefits, alternatives, and risks to the procedure including but not limited to stroke, bleed, infection, dissection, pseudoaneurysm, [place], renal failure, radiation injury, hair loss, contrast [...] 4F dilator was exchanged for a 5 Chadian short sheath over a guidewire. The short sheath was connected to heparinized saline flush. Fluoroscopy was performed over the right femoral artery in the right anterior oblique projection. The point of entry of the sheath is at the femoral bifurcation. The femoral artery is well visualized and normal. Through the short sheath, a 100 cm vert. angle [employer] diagnostic catheter was advanced over a 0.018 [...] AP and late (more content not included)... [facility] Radiology Study observation (narrative) [facility] alth RFA Cerebral arteries Bilate ral Views W contrast IAOrdered By: Oziel Culp on 05-06-2024 [facility] [employer] Work Phone: aPTT Coag (Bld) [Time]on aPTT Coag (PPP) [Time] 22.1 s 20.0 - 30.5 s [facility] NOTE: The therapeuti c time for Heparin anticoagulation, based on Xa activity inhibition, is an APTT of 46-80 seconds. [facility] Absolute lymphocyte countOrd ered By: Rito Lundberg on 05-05-2024 Lymphocytes Auto (Unsp spec) [#/Vol] 1.51 10*3/uL 0.83-4.51 [facility] Automated lymphocyte count a s percentage of total leukocytesOrdered By: Rito Lundberg on 05-05-2024 Lymphocytes/100 WBC Auto (Unsp spec) 11.3 % Low 19-41 [facility] Basophil percentageOrdered B y: Rito Lundberg on 05-05-2024 Basophils/100 WBC (Bld) 0.4 % 0-[address] [facility] Blood manual differential co mment interpretation (narrative result)Ordered By: Rito Lundberg on 05-05-2024 Manual differential comment Cedrick (Bld) [Interp] SCANNED [facility] CBC W/Diff, Automatedon OVALOCYTE 2+ Normal [facility] Comment on above: Performed By: #### L 503.6030, L503.0105, L100.0100, L503.6550 ####[facility] [address] [place], [address] Anisocytosis Ql (Bld) 2+ Normal [facility] Comment on above: Performed By: #### L 503.6030, L503.0105, L100.0100, L503.6550 ####[facility] [address] [place], [address] MICROCYTIC 1+ Normal [facility] Comment on above: Performed By: #### L 503.6030, L503.0105, L100.0100, L503.6550 ####[facility] [address] [place], [address] PLT EST ADEQUATE Normal ADEQ [facility] Comment on above: Performed By: #### L 503.6030, L503.0105, L100.0100, L503.6550 ####[facility] [address] [place], [address] SMEAR COMMENT SCANNED Normal [facility] Comment on above: Performed By: #### L 503.6030, L503.0105, L100.0100, L503.6550 ####[facility] [address] [place], [address] Eosinophil percentageOrdered By: Rito Lundberg on 05-05-2024 Eosinophils/100 WBC (Bld) 2.1 % 0-5 [facility] Erythrocyte distribution wid th ratioOrdered By: Rito Lundberg on 05-05-2024 Erythrocyte distribution width (RBC) [Ratio] 21.0 % High 11.6-14.6 [facility] Erythrocyte distribution wid th standard deviationOrdered By: [facility] Lundberg on 05-05-2024 Erythrocyte distribution width (RBC) [Ratio] 56.7 fl High 35.1-43.9 [facility] Ferritinon 05-05-2024 Ferritin [Mass/Vol] 134 ng/mL Normal 26-388 [facility] Comment on above: Performed By: #### L 503.6030, L503.0105, L100.0100, L503.6550 ####[facility] [address] [place], [address] Hematocrit Auto (Bld) [Volum e fraction]Ordered By: Rito Lundberg on 05-05-2024 Hematocrit (Bld) [Volume fraction] 31.6 % Low 40-54 [facility] Hemoglobin measurementOrdere d By: Rito Lundberg on 05-05-2024 Hemoglobin (Bld) [Mass/Vol] 9.3 g/dL Low 13.0-16.5 [facility] Immature granulocytes/100 WB C Auto (Bld)Ordered By: Rito Lundberg on 05-05-2024 Immature granulocytes/100 WBC (Bld) 0.600 % 0.0-0.9 [facility] Iron measurement (mass/mass) Ordered By: Rito Lundberg on 05-05-2024 Iron (Unsp spec) [Mass/Mass] 74 ug/dL 65-175 [facility] Iron+Iron Binding Capacityon 05-05-2024 Iron [Mass/Vol] 74 ug/dL Normal 65-175 [facility] Comment on above: Performed By: #### L 503.6030, L503.0105, L100.0100, L503.6550 ####[facility] [address] [place], [address] IRON SATURATION 22.0 Normal 15.0-55.0 [facility] Comment on above: Performed By: #### L 503.6030, L503.0105, L100.0100, L503.6550 ####[facility] [address] [place], [address] TIBC 337 ug/dL Normal 250-450 [facility] Comment on above: Performed By: #### L 503.6030, L503.0105, L100.0100, L503.6550 ####[facility] [address] [place], [address] MCV (mean corpuscular volume ) determinationOrdered By: Rito Lundberg on 05-05-2024 MCV (RBC) [Entitic vol] 76.5 fL Low 80-[address] [facility] Mean corpuscular hemoglobin (MCH) determinationOrdered By: Rito Lundberg on 05-05-2024 MCH (RBC) [Entitic mass] 22.5 pg Low 27.0-32.0 [facility] Monocyte percentageOrdered B y: Rito Lundberg on 05-05-2024 Monocytes/100 WBC (Bld) 8.1 % 0-[address] [facility] Neutrophil percentageOrdered By: Rito Lundberg on 05-05-2024 Neutrophils/100 WBC (Bld) 77.5 % High 47-70 [facility] No Panel InformationOrdered By: Rito Lundberg on 05-05-2024 2+ [facility] Nursing Noteon 05-05-2024 Nursing Note Report given to MARIO marsh, neuro assessment completed along with groin site check. Normal [facility] Oncology Visit Reporton Oncology Visit Report Normal [facility] Ovalocyte detectionOrdered B y: Rito Lundberg on 05-05-2024 Ovalocytes LM Ql (Bld) 2+ [facility] Platelet countOrdered By: Chanell Lundberg on 05-05-2024 Platelets (Bld) [#/Vol] 303 10*3/uL 150-450 [facility] Platelet estimateOrdered By: Rito Lundberg on 05-05-2024 Platelets LM Ql (Bld) ADEQUATE ADEQ [facility] RBC Auto (Bld) [#/Vol]Ordere d By: Rito Lundberg on 05-05-2024 RBC (Bld) [#/Vol] 4.13 10*6/uL Low 4.6-6.2 [facility] Serum or plasma iron saturat ion measurement (mass fraction)Ordered By: Rito Lundberg on 05-05-2024 Iron saturation [Mass fraction] 22.0 % 15.0-55.0 [facility] Vitamin B12on 05-05-2024 Cobalamin (Vitamin B12) [Mass/Vol] 1259 pg/mL High 211-911 [facility] Comment on above: Performed By: #### L 503.6030, L503.0105, L100.0100, L503.6550 ####[facility] [address] [place], [address] Vitamin B12 measurementOrder ed By: Rito Lundberg on 05-05-2024 Cobalamin (Vitamin B12) [Mass/Vol] 1259 pg/mL High 211-911 [facility] White blood cell (WBC) count Ordered By: Rito Lundberg on 05-05-2024 WBC (Bld) [#/Vol] 13.3 10*3/uL High 4.4-11.0 [facility] Pulmonary Visit Reporton Pulmonary Visit Report Normal [facility] Cardiology Visit Reporton Cardiology Visit Report Normal [facility] MR/BMS.BVSon 04-30-2024 MR/BMS.BVS Normal [facility] Office Visit Reporton 2024 Office Visit Report Normal [facility] 36on 04-27-2024 36 Spoke with patient t [...] iv contrast dye, iodine, or shellfish. Normal [facility] Office Visiton 04-27-2024 Follow-up visit [id number] Krunal Leos 1965 M Date Provider Department Center 04/27/2024 [id number], SU[facility]Y [facility] None No family history on file Level of Service:33385 [place] OFFICE/OUTPATIENT ESTABLISHED MOD [facility] 30 MIN Reason for Visit and Comments: Follow-up [195680] - discuss carotid duplex 04/06/23 [facility] Progress Noteon 04-27-2024 Progress Note Vascular Surgery [...] Provider, Continuous Glucose Sensor (Dexcom G6 Sensor) [facility] Dexcom G6 Sensor Mis, USE DIRECTED FOR [...] Stallworth MD ergocalciferol (Vitamin D2) 1.25 MG (28949 UT) capsule Take 1 capsule by mouth [...] 2023. 10/06/23 01/06/24 Harmeet Stallworth MD HYDROcodone-acetaminophen ([place]) 5-325 MG tablet Take 1 tablet by [...] MD pantop (more content not included)... Normal [facility] Vitamin B12on 04-27-2024 Cobalamin (Vitamin B12) [Mass/Vol] 572 pg/mL Normal 211-911 [facility] Comment on above: Performed By: #### L 100.0100, L100.9950, L503.6550, L503.0105, L503.6030 ####[facility] [address] [place], [place], [address] Absolute lymphocyte countOrd ered By: Cookie Arabella on 04-25-2024 Lymphocytes Auto (Unsp spec) [#/Vol] 1.80 10*3/uL 0.83-4.51 [facility] Automated lymphocyte count a s percentage of total leukocytesOrdered By: Cookie Arabella on 04-25-2024 Lymphocytes/100 WBC Auto (Unsp spec) 14.4 % Low 19-41 [facility] Basophil percentageOrdered B y: on 04-25-2024 Basophils/100 WBC (Bld) 0.5 % 0-[address] [facility] Bedside Glucoseon 04-25-2024 FINGERSTICK GLU 252 mg/dL High 74-106 [facility] Comment on above: Result Comment: ANI GEMENT OF PATIENT CARE PER NURSING PROTOCOL Performed By: #### L 501.080 ####[facility] [address] [place], [address] FINGERSTICK GLU 160 mg/dL High 74-106 [facility] Comment on above: Result Comment: ANI GEMENT OF PATIENT CARE PER NURSING PROTOCOL Performed By: #### L 501.080 ####[facility] [address] [place], [address] FINGERSTICK GLU 249 mg/dL High 74-106 [facility] Comment on above: Result Comment: ANI BRADFORD OF PATIENT CARE PER NURSING PROTOCOL Performed By: #### L 501.080 ####[facility] [address] [place], [address] Bilirubin, totalOrdered By: Cookie White on 04-25-2024 Bilirubin [Mass/Vol] 0.60 mg/dL 0.20-1.00 [facility] Blood manual differential co mment interpretation (narrative result)Ordered By: White on 04-25-2024 Manual differential comment Cedrick (Bld) [Interp] SCANNED [facility] Blood polychromasia detectio n by light microscopyOrdered By: White on 04-25-2024 Polychromasia LM Ql (Bld) RARE [facility] Blood schistocyte detection by light microscopyOrdered By: White on 04-25-2024 Schistocytes LM Ql (Bld) RARE [facility] Brain without Contraston Brain without Contrast Normal [facility] CBC W/Diff, Automatedon 04-02 [employer] CELLS RARE Normal [facility] Comment on above: Performed By: #### L 500.4100, L501.9985, L500.4050, L501.9520, L100.0100 ####[facility] [address] [place], [address] MICROCYTIC 1+ Normal [facility] Comment on above: Performed By: #### L 500.4100, L501.9985, L500.4050, L501.9520, L100.0100 ####[facility] [address] [place], [address] SCHISTOCYTES RARE Normal [facility] Comment on above: Performed By: #### L 500.4100, L501.9985, L500.4050, L501.9520, L100.0100 ####[facility] [address] [place], [address] POLYCHROMASIA RARE Normal [facility] Comment on above: Performed By: #### L 500.4100, L501.9985, L500.4050, L501.9520, L100.0100 ####[facility] [address] [place], [address] SMEAR COMMENT SCANNED Normal [facility] Comment on above: Performed By: #### L 500.4100, L501.9985, L500.4050, L501.9520, L100.0100 ####[facility] [address] [place], [address] Carbon dioxide measurementOr dered By: Cookie Bell on 04-25-2024 CO2 [Moles/Vol] 26.0 mmol/L 21.0-32.0 [facility] Chloride measurementOrdered By: Cookie Bell on 04-25-2024 Chloride [Moles/Vol] 103 mmol/L 98-107 [facility] Comprehensive Metabolic Prof ilon 04-25-2024 Albumin [Mass/Vol] 2.8 g/dL Low 3.2-5.0 [facility] Comment on above: Performed By: #### L 500.4100, L501.9985, L500.4050, L501.9520, L100.0100 ####[facility] [address] [place], [address] Albumin/Globulin [Mass ratio] 0.7 {ratio} Low 0.9-2.4 [facility] [facility] Comment on above: Performed By: #### L 500.4100, L501.9985, L500.4050, L501.9520, L100.0100 ####[facility] [address] [place], [address] ALK P 69 U/L Normal 45-117 [facility] Comment on above: Performed By: #### L 500.4100, L501.9985, L500.4050, L501.9520, L100.0100 ####[facility] [address] [place], [address] ALT [Catalytic activity/Vol] 18 U/L Normal 16-61 [facility] Comment on above: Performed By: #### L 500.4100, L501.9985, L500.4050, L501.9520, L100.0100 ####[facility] [address] [place], [address] AST [Catalytic activity/Vol] 13 U/L Low 15-37 [facility] Comment on above: Performed By: #### L 500.4100, L501.9985, L500.4050, L501.9520, L100.0100 ####[facility] [address] [place], [address] Bilirubin [Mass/Vol] 0.60 mg/dL Normal 0.20-1.00 [facility] Comment on above: Result Comment: For patients on eltrombopag therapy, use of Dimension [place] TBIL is not recommended. Performed By: #### L 500.4100, L501.9985, L500.4050, L501.9520, L100.0100 ####[facility] [address] [place], [address] BUN/CRE 26.3 RATIO High 10-20 [facility] Comment on above: Performed By: #### L 500.4100, L501.9985, L500.4050, L501.9520, L100.0100 ####[facility] [address] [place], [address] CA,Total 8.5 mg/dL Normal 8.5-10.1 [facility] Comment on above: Performed By: #### L 500.4100, L501.9985, L500.4050, L501.9520, L100.0100 ####[facility] [address] [place], [address] Chloride [Moles/Vol] 103 mmol/L Normal 98-107 [facility] Comment on above: Performed By: #### L 500.4100, L501.9985, L500.4050, L501.9520, L100.0100 ####[facility] [address] [place], [address] CO2 [Moles/Vol] 26.0 mmol/L Normal 21.0-32.0 [facility] Comment on above: Performed By: #### L 500.4100, L501.9985, L500.4050, L501.9520, L100.0100 ####[facility] [address] [place], [address] Creatinine [Mass/Vol] 1.14 mg/dL Normal 0.70-1.30 [facility] Comment on above: Result Comment: The validity of the calculated GFR GFRAA in patients over70 years has not been determined. Clinical correlation isessential. Performed By: #### L 500.4100, L501.9985, L500.4050, L501.9520, L100.0100 ####[facility] [address] [place], [address] ECRCL 94.76 ml/min Normal [facility] Comment on above: Performed By: #### L 500.4100, L501.9985, L500.4050, L501.9520, L100.0100 ####[facility] [address] [place], [address] EST GFR - AA 84 mL/min Normal >60 [facility] Comment on above: Result Comment: Afri can [place] Citizen GFR Calc Performed By: #### L 500.4100, L501.9985, L500.4050, L501.9520, L100.0100 ####[facility] [address] [place], [address] GAP 8 Normal 5-15 [facility] Comment on above: Performed By: #### L 500.4100, L501.9985, L500.4050, L501.9520, L100.0100 ####[facility] [address] [place], [address] GFR/1.73 sq M.predicted among non-blacks MDRD (S/P/Bld) [Vol rate/Area] 70 mL/min/{1.73_m2} Normal >60 [facility] Comment on above: Result Comment: Non- GFR Calc Performed By: #### L 500.4100, L501.9985, L500.4050, L501.9520, L100.0100 ####[facility] [address] [place], [address] Globulin (S) [Mass/Vol] 4.0 g/dL Normal 2.2-4.2 [facility] Comment on above: Performed By: #### L 500.4100, L501.9985, L500.4050, L501.9520, L100.0100 ####[facility] [address] [place], [address] Glucose [Mass/Vol] 172 mg/dL High 74-106 [facility] Comment on above: Result Comment: Fast ing Glucose result greater than or equal to 126 mg/dLsuggests DIABETES MELLITUS per A.D.A. criteria. Performed By: #### L 500.4100, L501.9985, L500.4050, L501.9520, L100.0100 ####[facility] [address] [place], [address] Potassium [Moles/Vol] 3.7 mmol/L Normal 3.5-5.1 [facility] Comment on above: Performed By: #### L 500.4100, L501.9985, L500.4050, L501.9520, L100.0100 ####[facility] [address] [place], [address] Sodium [Moles/Vol] 137 mmol/L Normal 136-145 [facility] Comment on above: Performed By: #### L 500.4100, L501.9985, L500.4050, L501.9520, L100.0100 ####[facility] [address] [place], [address] T PROT 6.8 g/dL Normal 6.4-8.2 [facility] Comment on above: Performed By: #### L 500.4100, L501.9985, L500.4050, L501.9520, L100.0100 ####[facility] [address] [place], [address] Urea nitrogen [Mass/Vol] 30 mg/dL High 7-18 [facility] Comment on above: Performed By: #### L 500.4100, L501.9985, L500.4050, L501.9520, L100.0100 ####[facility] [address] [place], [address] Eosinophil percentageOrdered By: Cookie Arabella on 04-25-2024 Eosinophils/100 WBC (Bld) 3.1 % 0-5 [facility] Erythrocyte distribution wid th ratioOrdered By: on 04-25-2024 Erythrocyte distribution width (RBC) [Ratio] 20.5 % High 11.6-14.6 [facility] Erythrocyte distribution wid th standard deviationOrdered By: on 04-25-2024 Erythrocyte distribution width (RBC) [Ratio] 54.5 fl High 35.1-43.9 [facility] Glomerular filtration rate ( GFR) estimationOrdered By: on 04-25-2024 GFR/1.73 sq M.predicted among non-blacks MDRD (S/P/Bld) [Vol rate/Area] 70 mL/min/{1.73_m2} >60 [facility] Glucose measurementOrdered B y: Cookie Bell on 04-25-2024 Glucose [Mass/Vol] 172 mg/dL High 74-106 [facility] Gl[facility] deOrdered By: Ochoa Johnson on 04-25-2024 Glucose [Mass/Vol] 252 mg/dL High 74-106 [facility] Hematocrit Auto (Bld) [Volum e fraction]Ordered By: Cookie Bell on 04-25-2024 Hematocrit (Bld) [Volume fraction] 29.2 % Low 40-54 [facility] Hemoglobin A1con 04-25-2024 HbA1c (Bld) [Mass fraction] 7.3 % High 3.8-5.6 [facility] Comment on above: Result Comment: Norm al < 5.7 % Prediabetic 5.7 - 6.4 % Diabetic >or= 6.5 % Please note range changes. Performed By: #### L 500.4100, L501.9985, L500.4050, L501.9520, L100.0100 ####[facility] [address] [place], [address] Hemoglobin A1c percentageOrd ered By: Cookie Bell on 04-25-2024 HbA1c (Bld) [Mass fraction] 7.3 % High 3.8-5.6 [facility] Hemoglobin measurementOrdere d By: Cookie Bell on 04-25-2024 Hemoglobin (Bld) [Mass/Vol] 8.6 g/dL Low 13.0-16.5 [facility] High density lipoprotein (HD L) measurementOrdered By: oCokie Bell on 04-25-2024 High density lipoprotein (HDL) measurement 38 mg/dL Low >40 [facility] Immature granulocytes/100 WB C Auto (Bld)Ordered By: Cookie Arabella on 04-25-2024 Immature granulocytes/100 WBC (Bld) 0.600 % 0.0-0.9 [facility] L501.4020on 04-25-2024 TROPONIN-I HS 76 pg/mL Normal 3.0-78.0 [facility] Comment on above: Order Comment: Comme nts: SPECIMEN #3'TROP' Serial specimen #1, #2 or #3: 3 Result Comment: Plea Note: New Test Units and Gender Specific Reference Ranges. For more information see Policy Stat Procedure [place] High Sensitivity Troponin (TNIH) and attachments. Performed By: #### L 501.4020 ####[facility] [address] [place], [place], [id number] TROPONIN-I HS 103 pg/mL High 3.0-78.0 [facility] Comment on above: Order Comment: Comme nts: SPECIMEN #2'TROP' Serial specimen #1, #2 or #3: 2 Result Comment: Plea se Note: New Test Units and Gender Specific Reference Ranges. For more information see Policy Stat Procedure [place] High Sensitivity Troponin (TNIH) and attachments. Performed By: #### L 501.4020 ####[facility] [address] [facility] [place], [place], [phone] Lipid Profileon 04-25-2024 Cholesterol [Mass/Vol] 127 mg/dL Normal 200 [facility] Comment on above: Result Comment: <200 mg/dL Desirable 200-240 mg/dL Borderline >240 mg/dL High Risk Performed By: #### L 500.4100, L501.9985, L500.4050, L501.9520, L100.0100 ####[facility] [address] [facility] [address] [place], [place], [id number] Cholesterol in HDL [Mass/Vol] 38 mg/dL Low [facility] Comment on above: Result Comment: The drugs N-Acetylcysteine and Metamizole may falselydepress this assay. Reference Range HDL <40 mg/dL Low HDL Cholesterol HDL >or= 60 mg/dL High HDL Cholesterol Performed By: #### L 500.4100, L501.9985, L500.4050, L501.9520, L100.0100 ####[facility] [address] [facility] [place], [address] Cholesterol in LDL [Mass/Vol] 46 mg/dL Normal 0-130 [facility] Comment on above: Performed By: #### L 500.4100, L501.9985, L500.4050, L501.9520, L100.0100 ####[facility] [address] [place], [address] Cholesterol in VLDL [Mass/Vol] 43 mg/dL High 5-40 [facility] Comment on above: Performed By: #### L 500.4100, L501.9985, L500.4050, L501.9520, L100.0100 ####[facility] [address] [place], [address] Triglyceride [Mass/Vol] 216 mg/dL High [facility] Comment on above: Result Comment: The drugs N-Acetylcysteine and Metamizole may falselydepress this assay.Serum Triglycerides Reference Interval Normal <150 mg/dL Borderline high 150 - 199 mg/dL High 200 - 499 mg/dL Very High > or = 500 mg/dL Performed By: #### L 500.4100, L501.9985, L500.4050, L501.9520, L100.0100 ####[facility] [address] [place], [address] Low density lipoprotein (LDL ) cholesterol measurementOrdered By: on 04-25-2024 Low density lipoprotein (LDL) cholesterol measurement 46 mg/dL 0-130 [facility] MCV (mean corpuscular volume ) determinationOrdered By: on 04-25-2024 MCV (RBC) [Entitic vol] 75.3 fL Low 80-[address] [facility] MR/CON.PCM.NEon 04-25-2024 MR/CON.PCM.NE Normal [facility] Mean corpuscular hemoglobin (MCH) determinationOrdered By: on 04-25-2024 MCH (RBC) [Entitic mass] 22.2 pg Low 27.0-32.0 [facility] Monocyte percentageOrdered B y: on 04-25-2024 Monocytes/100 WBC (Bld) 9.8 % 0-[address] [facility] Neutrophil percentageOrdered By: on 04-25-2024 Neutrophils/100 WBC (Bld) 71.6 % High 47-70 [facility] No Panel InformationOrdered By: Cookie Bell on 04-25-2024 13 U/L Low 15-37 [facility] Platelet countOrdered By: Katey lewis Arabella on 04-25-2024 Platelets (Bld) [#/Vol] 300 10*3/uL 150-450 [facility] Potassium measurementOrdered By: Cookie Bell on 04-25-2024 Potassium [Moles/Vol] 3.7 mmol/L 3.5-5.1 [facility] RBC Auto (Bld) [#/Vol]Ordere d By: Cookie Bell on 04-25-2024 RBC (Bld) [#/Vol] 3.88 10*6/uL Low 4.6-6.2 [facility] Serum globulin measurementOr dered By: Cookie Bell on 04-25-2024 Globulin (S) [Mass/Vol] 4.0 g/dL 2.2-4.2 [facility] Serum or plasma alanine briscoe otransferase (ALT) measurementOrdered By: Cookie Bell on 04-25-2024 ALT [Catalytic activity/Vol] 18 U/L 16-61 [facility] Serum or plasma albumin grazyna urement (mass/volume)Ordered By: Cookie Bell on 04-25-2024 Albumin [Mass/Vol] 2.8 g/dL Low 3.2-5.0 [facility] Serum or plasma alkaline benjamin sphatase measurementOrdered By: Cookie Bell on 04-25-2024 ALP [Catalytic activity/Vol] 69 U/L 45-117 [facility] Serum or plasma calcium grazyna urement (mass/volume)Ordered By: Cookie Bell on 04-25-2024 Calcium [Mass/Vol] 8.5 mg/dL 8.5-10.1 [facility] Serum or plasma cholesterol measurement (mass/volume)Ordered By: Cookie Bell on 04-25-2024 Cholesterol [Mass/Vol] 127 mg/dL <200 [facility] Serum or plasma creatinine m easurement (mass/volume)Ordered By: Cookie Bell on 04-25-2024 Creatinine [Mass/Vol] 1.14 mg/dL 0.70-1.30 [facility] Serum or plasma thyroid stim ulating hormone (TSH) measurement (units/volume)Ordered By: Cookie Bell on 04-25-2024 TSH Qn 5.220 uIU/mL High 0.358-3.74 0 [facility] Serum or plasma urea nitroge n measurement (mass/volume)Ordered By: Cookie Bell on 04-25-2024 Urea nitrogen [Mass/Vol] 30 mg/dL High 7-18 [facility] Sodium levelOrdered By: Celyu mn Arabella on 04-25-2024 Sodium [Moles/Vol] 137 mmol/L 136-145 [facility] Target cell detectionOrdered By: Cookie Bell on 04-25-2024 Target cells LM Ql (Bld) RARE [facility] Thyroid Stim Hormone (TSH)on 04-25-2024 TSH 5.220 uIU/mL High 0.358-3.74 0 [facility] Comment on above: Performed By: #### L 500.4100, L501.9985, L500.4050, L501.9520, L100.0100 ####[facility] [address] [place], [place], [id number] Total proteinOrdered By: Cely reynan Arabella on 04-25-2024 Protein [Mass/Vol] 6.8 g/dL 6.4-8.2 [facility] Troponin IOrdered By: Cookie Bell on 04-25-2024 Troponin I 76 pg/mL 3.0-78.0 [facility] Very low density lipoprotein (VLDL) cholesterol measurementOrdered By: Cookie Arabella on 04-25-2024 Very low density lipoprotein (VLDL) cholesterol measurement 43 mg/dL High 5-40 [facility] White blood cell (WBC) count Ordered By: Cookie Bell on 04-25-2024 WBC (Bld) [#/Vol] 12.5 10*3/uL High 4.4-11.0 [facility] 12 Lead EKGon 04-24-2024 12 Lead EKG Normal [facility] Abdomen Single View (Portabl e)on 04-24-2024 Abdomen Single View (Portable) Normal [facility] Absolute lymphocyte countOrd ered By: Radha Khan on 04-24-2024 Lymphocytes Auto (Unsp spec) [#/Vol] 2.02 10*3/uL 0.83-4.51 [facility] Activated partial thrombopla stin time (aPTT) in platelet poor plasma by coagulation aOrdered By: Daniel Mcneil on 04-24-2024 aPTT Coag (PPP) [Time] 24.8 s 24.1-36.2 [facility] Automated lymphocyte count a s percentage of total leukocytesOrdered By: Radha Khan on 04-24-2024 Lymphocytes/100 WBC Auto (Unsp spec) 14.4 % Low 19-41 [facility] Basic Metabolic Profile (BMP )on 04-24-2024 BUN/CRE 28.5 RATIO High 10-20 [facility] Comment on above: Order Comment: 'TROP ' Serial specimen #1, #2 or #3: 1 Performed By: #### L 500.2500, L300.3900, L300.4310, L100.0100, L501.4020 ####[facility] [address] [place], [address] CA,Total 8.9 mg/dL Normal 8.5-10.1 [facility] Comment on above: Order Comment: 'TROP ' Serial specimen #1, #2 or #3: 1 Performed By: #### L 500.2500, L300.3900, L300.4310, L100.0100, L501.4020 ####[facility] [address] [place], [address] Chloride [Moles/Vol] 106 mmol/L Normal 98-107 [facility] Comment on above: Order Comment: 'TROP ' Serial specimen #1, #2 or #3: 1 Performed By: #### L 500.2500, L300.3900, L300.4310, L100.0100, L501.4020 ####[facility] [address] [place], [address] CO2 [Moles/Vol] 27.0 mmol/L Normal 21.0-32.0 [facility] Comment on above: Order Comment: 'TROP ' Serial specimen #1, #2 or #3: 1 Performed By: #### L 500.2500, L300.3900, L300.4310, L100.0100, L501.4020 ####[facility] [address] [place], [address] Creatinine [Mass/Vol] 1.30 mg/dL Normal 0.70-1.30 [facility] Comment on above: Order Comment: 'TROP ' Serial specimen #1, #2 or #3: 1 Result Comment: The validity of the calculated GFR GFRAA in patients over70 years has not been determined. Clinical correlation isessential. Performed By: #### L 500.2500, L300.3900, L300.4310, L100.0100, L501.4020 ####[facility] [address] [place], [address] ECRCL 84.56 ml/min Normal [facility] Comment on above: Order Comment: 'TROP ' Serial specimen #1, #2 or #3: 1 Performed By: #### L 500.2500, L300.3900, L300.4310, L100.0100, L501.4020 ####[facility] [address] [place], [address] EST GFR - AA 72 mL/min Normal >60 [facility] Comment on above: Order Comment: 'TROP ' Serial specimen #1, #2 or #3: 1 Result Comment: Afri can [place] Citizen GFR Calc Performed By: #### L 500.2500, L300.3900, L300.4310, L100.0100, L501.4020 ####[facility] [address] [place], [address] GAP 6 Normal 5-15 [facility] Comment on above: Order Comment: 'TROP ' Serial specimen #1, #2 or #3: 1 Performed By: #### L 500.2500, L300.3900, L300.4310, L100.0100, L501.4020 ####[facility] [address] [place], [address] GFR/1.73 sq M.predicted among non-blacks MDRD (S/P/Bld) [Vol rate/Area] 60 mL/min/{1.73_m2} Normal >60 [facility] Comment on above: Order Comment: 'TROP ' Serial specimen #1, #2 or #3: 1 Result Comment: Non- GFR Calc Performed By: #### L 500.2500, L300.3900, L300.4310, L100.0100, L501.4020 ####[facility] [address] [place], [address] Glucose [Mass/Vol] 81 mg/dL Normal 74-106 [facility] Comment on above: Order Comment: 'TROP ' Serial specimen #1, #2 or #3: 1 Performed By: #### L 500.2500, L300.3900, L300.4310, L100.0100, L501.4020 ####[facility] [address] [place], [address] Potassium [Moles/Vol] 4.2 mmol/L Normal 3.5-5.1 [facility] Comment on above: Order Comment: 'TROP ' Serial specimen #1, #2 or #3: 1 Performed By: #### L 500.2500, L300.3900, L300.4310, L100.0100, L501.4020 ####[facility] [address] [place], [address] Sodium [Moles/Vol] 139 mmol/L Normal 136-145 [facility] Comment on above: Order Comment: 'TROP ' Serial specimen #1, #2 or #3: 1 Performed By: #### L 500.2500, L300.3900, L300.4310, L100.0100, L501.4020 ####[facility] [address] [place], [address] Urea nitrogen [Mass/Vol] 37 mg/dL High 7-18 [facility] Comment on above: Order Comment: 'TROP ' Serial specimen #1, #2 or #3: 1 Performed By: #### L 500.2500, L300.3900, L300.4310, L100.0100, L501.4020 ####[facility] [address] [place], [address] Basophil percentageOrdered B y: Radha Khan on 04-24-2024 Basophils/100 WBC (Bld) 0.4 % 0-[address] [facility] CBC W/Diff, Automatedon 04-02 Anisocytosis Ql (Bld) 1+ Normal [facility] Comment on above: Performed By: #### L 100.0100, L100.9950, L503.6550, L503.0105, L503.6030 ####[facility] [address] [place], [address] HYPOCHROMASIA 1+ Normal [facility] Comment on above: Performed By: #### L 100.0100, L100.9950, L503.6550, L503.0105, L503.6030 ####[facility] [address] [place], [address] MICROCYTIC 1+ Normal [facility] Comment on above: Performed By: #### L 100.0100, L100.9950, L503.6550, L503.0105, L503.6030 ####[facility] [address] [place], [address] OVALOCYTE 1+ Normal [facility] Comment on above: Performed By: #### L 100.0100, L100.9950, L503.6550, L503.0105, L503.6030 ####[facility] [address] [place], [address] PLT EST ADEQUATE Normal ADEQ [facility] Comment on above: Performed By: #### L 100.0100, L100.9950, L503.6550, L503.0105, L503.6030 ####[facility] [address] [place], [address] RED CELL MORPH N CHROM Normal NORM C C [facility] Comment on above: Performed By: #### L 100.0100, L100.9950, L503.6550, L503.0105, L503.6030 ####[facility] [address] [place], [address] Anisocytosis Ql (Bld) 1+ Normal [facility] Comment on above: Performed By: #### L 500.2500, L300.3900, L300.4310, L100.0100, L501.4020 ####[facility] [address] [place], [address] HYPOCHROMASIA 1+ Normal [facility] Comment on above: Performed By: #### L 500.2500, L300.3900, L300.4310, L100.0100, L501.4020 ####[facility] [address] [place], [place], [phone] MICROCYTIC 1+ Normal [facility] Comment on above: Performed By: #### L 500.2500, L300.3900, L300.4310, L100.0100, L501.4020 ####[facility] [address] [place], [address] OVALOCYTE 1+ Normal [facility] Comment on above: Performed By: #### L 500.2500, L300.3900, L300.4310, L100.0100, L501.4020 ####[facility] [address] [place], [address] PLT EST ADEQUATE Normal ADEQ [facility] Comment on above: Performed By: #### L 500.2500, L300.3900, L300.4310, L100.0100, L501.4020 ####[facility] [address] [place], [address] RED CELL MORPH N CHROM Normal NORM C C [facility] Comment on above: Performed By: #### L 500.2500, L300.3900, L300.4310, L100.0100, L501.4020 ####[facility] [address] [place], [address] Chest 1 Viewon 04-24-2024 Chest 1 View Normal [facility] Emergency Department Summary on 04-24-2024 Emergency Department Summary Normal [facility] Eosinophil percentageOrdered By: Radha Khan on 04-24-2024 Eosinophils/100 WBC (Bld) 2.6 % 0-5 [facility] Erythrocyte distribution wid th ratioOrdered By: Radha Khan on 04-24-2024 Erythrocyte distribution width (RBC) [Ratio] 20.5 % High 11.6-14.6 [facility] Erythrocyte distribution wid th standard deviationOrdered By: Radha Khan on 04-24-2024 Erythrocyte distribution width (RBC) [Ratio] 56.2 fl High 35.1-43.9 [facility] Erythrocyte morphology asses smentOrdered By: Daniel Mcneil on 04-24-2024 RBC morphology finding Nom (Bld) N CHROM NORMAL NORM C&C [facility] Erythrocyte morphology asses smentOrdered By: Radha Khan on 04-24-2024 RBC morphology finding Nom (Bld) N CHROM NORMAL NORM C&C [facility] Ferritinon 04-24-2024 Ferritin [Mass/Vol] 102 ng/mL Normal 26-388 [facility] Comment on above: Performed By: #### L 100.0100, L100.9950, L503.6550, L503.0105, L503.6030 ####[facility] [address] [place], [address] H AND P Exam - Hospitaliston 04-24-2024 H&P Exam - Hospitalist Normal [facility] Hematocrit Auto (Bld) [Volum e fraction]Ordered By: Radha Khan on 04-24-2024 Hematocrit (Bld) [Volume fraction] 33.0 % Low 40-54 [facility] Hemoglobin measurementOrdere d By: Radha Khan on 04-24-2024 Hemoglobin (Bld) [Mass/Vol] 9.0 g/dL Low 13.0-16.5 [facility] Hypochromatic red blood cell detectionOrdered By: Daniel Mcneil on 04-24-2024 Hypochromia Ql (Bld) 1+ [facility] Hypochromatic red blood cell detectionOrdered By: Radha Khan on 04-24-2024 Hypochromia Ql (Bld) 1+ [facility] Immature granulocytes/100 WB C Auto (Bld)Ordered By: Radha Khan on 04-24-2024 Immature granulocytes/100 WBC (Bld) 0.700 % 0.0-0.9 [facility] Iron measurement (mass/mass) Ordered By: Radha Khan on 04-24-2024 Iron (Unsp spec) [Mass/Mass] 64 ug/dL Low 65-175 [facility] Iron+Iron Binding Capacityon 04-24-2024 Iron [Mass/Vol] 64 ug/dL Low 65-175 [facility] Comment on above: Performed By: #### L 100.0100, L100.9950, L503.6550, L503.0105, L503.6030 ####[facility] [address] [place], [address] IRON SATURATION 22.8 Normal 15.0-55.0 [facility] Comment on above: Performed By: #### L 100.0100, L100.9950, L503.6550, L503.0105, L503.6030 ####[facility] [address] [place], [place], [id number] TIBC 281 ug/dL Normal 250-450 [facility] Comment on above: Performed By: #### L 100.0100, L100.9950, L503.6550, L503.0105, L503.6030 ####[facility] [address] [place], [address] L501.4020on 04-24-2024 TROPONIN-I HS 106 pg/mL High 3.0-78.0 [facility] Comment on above: Order Comment: 'TROP ' Serial specimen #1, #2 or #3: 1 Result Comment: Kodi monterroso Note: New Test Units and Gender Specific Reference Ranges. For more information see Policy Stat Procedure [place] High Sensitivity Troponin (TNIH) and attachments. Performed By: #### L 501.4020 ####[facility] [address] [place], [address] TROPONIN-I HS 190 pg/mL Invalid Interpretation Code 3.0-78.0 [facility] Comment on above: Order Comment: 'TROP ' Serial specimen #1, #2 or #3: 1 Result Comment: Crit ical Result(s) Called at: 16:51:09 04/24/2024 by: SHERYL. Results read back by Stan RAMIREZ Please Note: New Test Units and Gender Specific Reference Ranges. For more information see Policy Stat Procedure [place] High Sensitivity Troponin (TNIH) and attachments. Performed By: #### L 500.2500, L300.3900, L300.4310, L100.0100, L501.4020 ####[facility] [address] [place], [address] MCV (mean corpuscular volume ) determinationOrdered By: Radha Khan on 04-24-2024 MCV (RBC) [Entitic vol] 77.6 fL Low 80-[address] [facility] Magnesiumon 04-24-2024 Magnesium [Mass/Vol] 2.1 mg/dL Normal 1.6-2.6 [facility] Comment on above: Order Comment: Comme nts: may add to ED labs Performed By: #### L 501.5200 ####[facility] [address] [place], [address] Magnesium measurementOrdered By: Cookie Bell on 04-24-2024 Magnesium [Mass/Vol] 2.1 mg/dL 1.6-2.6 [facility] Mean corpuscular hemoglobin (MCH) determinationOrdered By: Radha Khan on 04-24-2024 MCH (RBC) [Entitic mass] 21.2 pg Low 27.0-32.0 [facility] Monocyte percentageOrdered B y: Radha Khan on 04-24-2024 Monocytes/100 WBC (Bld) 10.2 % High 0-10 [facility] Neutrophil percentageOrdered By: Radha Khan on 04-24-2024 Neutrophils/100 WBC (Bld) 71.7 % High 47-70 [facility] No Panel InformationOrdered By: Daniel Mcneil on 04-24-2024 1+ [facility] No Panel InformationOrdered By: Radha Khan on 04-24-2024 1+ [facility] Ovalocyte detectionOrdered B y: Daniel Mcneil on 04-24-2024 Ovalocytes LM Ql (Bld) 1+ [facility] Ovalocyte detectionOrdered B y: Radha Khan on 04-24-2024 Ovalocytes LM Ql (Bld) 1+ [facility] Partial Thromboplast Timeon 04-24-2024 aPTT Coag (Bld) [Time] 24.8 s Normal 24.1-36.2 [facility] Comment on above: Performed By: #### L 500.2500, L300.3900, L300.4310, L100.0100, L501.4020 ####[facility] [address] [place], [place], [id number] Platelet countOrdered By: Armen Khan on 04-24-2024 Platelets (Bld) [#/Vol] 361 10*3/uL 150-450 [facility] Platelet estimateOrdered By: Daniel Mcneil on 04-24-2024 Platelets LM Ql (Bld) ADEQUATE ADEQ [facility] Platelet estimateOrdered By: Radha Khan on 04-24-2024 Platelets LM Ql (Bld) ADEQUATE [facility] Prothrombin Time w/INRon INR Coag (PPP) [Relative time] 1.1 {INR} Normal [facility] Comment on above: Performed By: #### L 500.2500, L300.3900, L300.4310, L100.0100, L501.4020 ####[facility] [address] [place], [address] PT Coag (PPP) [Time] 14.4 s Normal 11.7-14.9 [facility] Comment on above: Performed By: #### L 500.2500, L300.3900, L300.4310, L100.0100, L501.4020 ####[facility] [address] [place], [address] Prothrombin timeOrdered By: Daniel Mcneil on 04-24-2024 PT Coag (PPP) [Time] 14.4 s 11.7-14.9 [facility] RBC Auto (Bld) [#/Vol]Ordere d By: Radha Khan on 04-24-2024 RBC (Bld) [#/Vol] 4.25 10*6/uL Low 4.6-6.2 [facility] Retic Panelon 04-24-2024 IM RET FRACTION 18.00 High 3.00-15.90 [facility] Comment on above: Performed By: #### L 100.0100, L100.9950, L503.6550, L503.0105, L503.6030 ####[facility] [address] [place], [address] RET-HE 26.3 pg Low 30-35 [facility] Comment on above: Performed By: #### L 100.0100, L100.9950, L503.6550, L503.0105, L503.6030 ####[facility] [address] [place], [address] Retic Count 1.99 High 0.5-1.5 [facility] Comment on above: Performed By: #### L 100.0100, L100.9950, L503.6550, L503.0105, L503.6030 ####[facility] [address] [place], [place], [id number] Reticulocyte hemoglobin equi valent (RET-He) measurementOrdered By: Radha Khan on 04-24-2024 Hemoglobin (Reticulocytes) [Entitic mass] 26.3 pg Low 30-35 [facility] Reticulocytes Auto (Bld) [#/ Vol]Ordered By: Radha Khan on 04-24-2024 Reticulocytes/100 RBC (Bld) 1.99 % High 0.5-1.5 [facility] STROKE Brain/Head without Co nton 04-24-2024 STROKE Brain/Head without Cont Normal [facility] STROKE CTA Head AND Neck W/C onon 04-24-2024 STROKE CTA Head AND Neck W/Con Normal [facility] Serum or plasma iron saturat ion measurement (mass fraction)Ordered By: Radha Khan on 04-24-2024 Iron saturation [Mass fraction] 22.8 % 15.0-55.0 [facility] Vitamin B12 measurementOrder ed By: Radha Khan on 04-24-2024 Cobalamin (Vitamin B12) [Mass/Vol] 572 pg/mL 211-911 [facility] White blood cell (WBC) count Ordered By: Radha Khan on 04-24-2024 WBC (Bld) [#/Vol] 14.1 10*3/uL High 4.4-11.0 [facility] 36on 04-22-2024 36 LVM to let patient k now he is scheduled for surgery and to call back to go over presurgical instructions Normal [facility] 36 Call ref# [id number] 000. No Prior authorization needed for inpatient 24 hour observation. Normal [facility] Pulmonary Visit Reporton Pulmonary Visit Report Normal [facility] Culture, Blood (WB)on 2024 CUB Blood cultures x2, f rom two different sites No growth in 5 days. Normal [facility] Comment on above: Performed By: #### M 200.1000, M100.636 ####[facility] [address] [place], [address] Endocrinology Visit Reporton 04-16-2024 Endocrinology Visit Report Normal [facility] No Panel Informationon 04-16 7.7 % High 4.2-6.3 [facility] Absolute lymphocyte countOrd ered By: Cuco Soler on 04-15-2024 Lymphocytes Auto (Unsp spec) [#/Vol] 0.77 10*3/uL Low 0.83-4.51 [facility] Automated lymphocyte count a s percentage of total leukocytesOrdered By: Cuco Soler on 04-15-2024 Lymphocytes/100 WBC Auto (Unsp spec) 7.0 % Low 19-41 [facility] Basic Metabolic Profile (BMP )on 04-15-2024 BUN/CRE 29.8 RATIO High 10-20 [facility] Comment on above: Performed By: #### L 100.0100, L500.2500 ####[facility] [address] [place], [address] CA,Total 9.4 mg/dL Normal 8.5-10.1 [facility] Comment on above: Performed By: #### L 100.0100, L500.2500 ####[facility] [address] [place], [address] Chloride [Moles/Vol] 103 mmol/L Normal 98-107 [facility] Comment on above: Performed By: #### L 100.0100, L500.2500 ####[facility] [address] [place], [address] CO2 [Moles/Vol] 24.0 mmol/L Normal 21.0-32.0 [facility] Comment on above: Performed By: #### L 100.0100, L500.2500 ####[facility] [address] [place], [address] Creatinine [Mass/Vol] 1.14 mg/dL Normal 0.70-1.30 [facility] Comment on above: Result Comment: The validity of the calculated GFR GFRAA in patients over70 years has not been determined. Clinical correlation isessential. Performed By: #### L 100.0100, L500.2500 ####[facility] [address] [place], [address] ECRCL 94.72 ml/min Normal [facility] Comment on above: Performed By: #### L 100.0100, L500.2500 ####[facility] [address] [place], [address] EST GFR - AA 84 mL/min Normal >60 [facility] Comment on above: Result Comment: Afri can [place] Citizen GFR Calc Performed By: #### L 100.0100, L500.2500 ####[facility] [address] [place], [address] GAP 8 Normal 5-15 [facility] Comment on above: Performed By: #### L 100.0100, L500.2500 ####[facility] [address] [place], [address] GFR/1.73 sq M.predicted among non-blacks MDRD (S/P/Bld) [Vol rate/Area] 70 mL/min/{1.73_m2} Normal >60 [facility] Comment on above: Result Comment: Non- GFR Calc Performed By: #### L 100.0100, L500.2500 ####[facility] [address] [place], [address] Glucose [Mass/Vol] 154 mg/dL High 74-106 [facility] Comment on above: Result Comment: Fast ing Glucose result greater than or equal to 126 mg/dLsuggests DIABETES MELLITUS per A.D.A. criteria. Performed By: #### L 100.0100, L500.2500 ####[facility] [address] [place], [address] Potassium [Moles/Vol] 4.4 mmol/L Normal 3.5-5.1 [facility] Comment on above: Performed By: #### L 100.0100, L500.2500 ####[facility] [address] [place], [address] Sodium [Moles/Vol] 135 mmol/L Low 136-145 [facility] Comment on above: Performed By: #### L 100.0100, L500.2500 ####[facility] [address] [place], [address] Urea nitrogen [Mass/Vol] 34 mg/dL High 7-18 [facility] Comment on above: Performed By: #### L 100.0100, L500.2500 ####[facility] [address] [place], [address] Basophil percentageOrdered B y: Cucogemini Soler on 04-15-2024 Basophils/100 WBC (Bld) 0.1 % 0-[address] [facility] CBC W/Diff, Automatedon - Absolute Lymph 0.77 X10 3/uL Low 0.83-4.51 [facility] Comment on above: Performed By: #### L 100.0100, L500.2500 ####[facility] [address] [place], [address] Absolute Neut 9.9 X10 3/uL High 2.0-7.7 [facility] Comment on above: Performed By: #### L 100.0100, L500.2500 ####[facility] [address] [place], [address] Basophils/100 WBC (Bld) 0.1 % Normal 0-[address] [facility] Comment on above: Performed By: #### L 100.0100, L500.2500 ####[facility] [address] [place], [address] Eosinophils/100 WBC (Bld) 0.1 % Normal 0-5 [facility] Comment on above: Performed By: #### L 100.0100, L500.2500 ####[facility] [address] [place], [address] Erythrocyte distribution width (RBC) [Ratio] 19.6 % High 11.6-14.6 [facility] Comment on above: Performed By: #### L 100.0100, L500.2500 ####[facility] [address] [place], [address] Hematocrit (Bld) [Volume fraction] 28.9 % Low 40-54 [facility] Comment on above: Performed By: #### L 100.0100, L500.2500 ####[facility] [address] [place], [address] Hemoglobin (Bld) [Mass/Vol] 8.5 g/dL Low 13.0-16.5 [facility] Comment on above: Performed By: #### L 100.0100, L500.2500 ####[facility] [address] [place], [address] IG% 0.600 Normal 0.0-0.9 [facility] Comment on above: Result Comment: IG% - Immature Granulocytes (promyelocytes, myelocytes andmetamyelocytes) > 1% indicates that a LEFT SHIFT is Present. Performed By: #### L 100.0100, L500.2500 ####[facility] [address] [place], [address] Lymphocytes/100 WBC (Bld) 7.0 % Low 19-41 [facility] Comment on above: Performed By: #### L 100.0100, L500.2500 ####[facility] [address] [place], [address] MCH (RBC) [Entitic mass] 21.8 pg Low 27.0-32.0 [facility] Comment on above: Performed By: #### L 100.0100, L500.2500 ####[facility] [address] [place], [address] MCHC (RBC) [Mass/Vol] 29.4 g/dL Low 32-36 [facility] Comment on above: Performed By: #### L 100.0100, L500.2500 ####[facility] [address] [place], [address] MCV (RBC) [Entitic vol] 74.1 fL Low 80-[address] [facility] Comment on above: Performed By: #### L 100.0100, L500.2500 ####[facility] [address] [place], [address] Monocytes/100 WBC (Bld) 2.4 % Normal 0-10 [facility] Comment on above: Performed By: #### L 100.0100, L500.2500 ####[facility] [address] [place], [address] Neutrophils/100 WBC (Bld) 89.8 % High 47-70 [facility] Comment on above: Performed By: #### L 100.0100, L500.2500 ####[facility] [address] [place], [address] Nucleated RBC (Bld) [#/Vol] 0 10*3/uL Normal 0-5 [facility] Comment on above: Performed By: #### L 100.0100, L500.2500 ####[facility] [address] [place], [address] Platelet mean volume (Bld) [Entitic vol] 9.8 fL Normal 6.2-12.0 [facility] Comment on above: Performed By: #### L 100.0100, L500.2500 ####[facility] [address] [place], [address] Platelets (Bld) [#/Vol] 341 10*3/uL Normal 150-450 [facility] Comment on above: Performed By: #### L 100.0100, L500.2500 ####[facility] [address] [place], [address] RBC (Bld) [#/Vol] 3.90 10*6/uL Low 4.6-6.2 [facility] Comment on above: Performed By: #### L 100.0100, L500.2500 ####[facility] [address] [place], [address] RDW SD 52.3 fl High 35.1-43.9 [facility] Comment on above: Performed By: #### L 100.0100, L500.2500 ####[facility] [address] [place], [address] WBC (Bld) [#/Vol] 11.0 10*3/uL Normal 4.4-11.0 [facility] Comment on above: Performed By: #### L 100.0100, L500.2500 ####[facility] [address] [place], [address] Carbon dioxide measurementOr dered By: Cuco Soler on 04-15-2024 CO2 [Moles/Vol] 24.0 mmol/L 21.0-32.0 [facility] Chloride measurementOrdered By: Cuco Soler on 04-15-2024 Chloride [Moles/Vol] 103 mmol/L 98-107 [facility] Discharge Instructionon 04-01 Discharge Instruction Normal [facility] Eosinophil percentageOrdered By: Cuco Soler on 04-15-2024 Eosinophils/100 WBC (Bld) 0.1 % 0-5 [facility] Erythrocyte distribution wid th ratioOrdered By: Cuco Soler on 04-15-2024 Erythrocyte distribution width (RBC) [Ratio] 19.6 % High 11.6-14.6 [facility] Erythrocyte distribution wid th standard deviationOrdered By: Cuco Soler on 04-15-2024 Erythrocyte distribution width (RBC) [Ratio] 52.3 fl High 35.1-43.9 [facility] Glomerular filtration rate ( GFR) estimationOrdered By: Cuco Soler on 04-15-2024 GFR/1.73 sq M.predicted among non-blacks MDRD (S/P/Bld) [Vol rate/Area] 70 mL/min/{1.73_m2} >60 [facility] Glucose measurementOrdered B y: Cuco Soler on 04-15-2024 Glucose [Mass/Vol] 154 mg/dL High 74-106 [facility] Hematocrit Auto (Bld) [Volum e fraction]Ordered By: Cuco Soler on 04-15-2024 Hematocrit (Bld) [Volume fraction] 28.9 % Low 40-54 [facility] Hemoglobin measurementOrdere d By: Cuco Soler on 04-15-2024 Hemoglobin (Bld) [Mass/Vol] 8.5 g/dL Low 13.0-16.5 [facility] Immature granulocytes/100 WB C Auto (Bld)Ordered By: Cuco Soler on 04-15-2024 Immature granulocytes/100 WBC (Bld) 0.600 % 0.0-0.9 [facility] MCV (mean corpuscular volume ) determinationOrdered By: Cuco Soler on 04-15-2024 MCV (RBC) [Entitic vol] 74.1 fL Low 80-[address] [facility] Mean corpuscular hemoglobin (MCH) determinationOrdered By: Cuco Soler on 04-15-2024 MCH (RBC) [Entitic mass] 21.8 pg Low 27.0-32.0 [facility] Monocyte percentageOrdered B y: Cuco Soler on 04-15-2024 Monocytes/100 WBC (Bld) 2.4 % 0-[address] [facility] Neutrophil percentageOrdered By: Cuco Soler on 04-15-2024 Neutrophils/100 WBC (Bld) 89.8 % High 47-70 [facility] Platelet countOrdered By: Joselito Soler on 04-15-2024 Platelets (Bld) [#/Vol] 341 10*3/uL 150-450 [facility] Potassium measurementOrdered By: Cuco Soler on 04-15-2024 Potassium [Moles/Vol] 4.4 mmol/L 3.5-5.1 [facility] RBC Auto (Bld) [#/Vol]Ordere d By: Cuco Soler on 04-15-2024 RBC (Bld) [#/Vol] 3.90 10*6/uL Low 4.6-6.2 [facility] Serum or plasma calcium grazyna urement (mass/volume)Ordered By: Cuco Soler on 04-15-2024 Calcium [Mass/Vol] 9.4 mg/dL 8.5-10.1 [facility] Serum or plasma creatinine m easurement (mass/volume)Ordered By: Cuco Soler on 04-15-2024 Creatinine [Mass/Vol] 1.14 mg/dL 0.70-1.30 [facility] Serum or plasma urea nitroge n measurement (mass/volume)Ordered By: Cuco Soler on 04-15-2024 Urea nitrogen [Mass/Vol] 34 mg/dL High 7-18 [facility] Sodium levelOrdered By: Caitie Soler on 04-15-2024 Sodium [Moles/Vol] 135 mmol/L Low 136-145 [facility] White blood cell (WBC) count Ordered By: Cuco Soler on 04-15-2024 WBC (Bld) [#/Vol] 11.0 10*3/uL 4.4-11.0 [facility] GPC IDon 04-14-2024 GPC ID Normal [facility] Comment on above: Performed By: #### M 200.1000, M100.636 ####[facility] [address] [place], [address] Basic Metabolic Profile (BMP )on 04-14-2024 BUN/CRE 20.1 RATIO High 10-20 [facility] Comment on above: Performed By: #### L 100.0100, L501.5200, L500.2500, L500.3400, L501.2300 ####[facility] [address] [place], [address] CA,Total 9.0 mg/dL Normal 8.5-10.1 [facility] Comment on above: Performed By: #### L 100.0100, L501.5200, L500.2500, L500.3400, L501.2300 ####[facility] [address] [place], [address] Chloride [Moles/Vol] 100 mmol/L Normal 98-107 [facility] Comment on above: Performed By: #### L 100.0100, L501.5200, L500.2500, L500.3400, L501.2300 ####[facility] [address] [place], [address] CO2 [Moles/Vol] 26.0 mmol/L Normal 21.0-32.0 [facility] Comment on above: Performed By: #### L 100.0100, L501.5200, L500.2500, L500.3400, L501.2300 ####[facility] [address] [place], [address] Creatinine [Mass/Vol] 1.49 mg/dL High 0.70-1.30 [facility] Comment on above: Result Comment: The validity of the calculated GFR GFRAA in patients over70 years has not been determined. Clinical correlation isessential. Performed By: #### L 100.0100, L501.5200, L500.2500, L500.3400, L501.2300 ####[facility] [address] [place], [address] ECRCL 73.51 ml/min Normal [facility] Comment on above: Performed By: #### L 100.0100, L501.5200, L500.2500, L500.3400, L501.2300 ####[facility] [address] [place], [address] EST GFR - AA 62 mL/min Normal >60 [facility] Comment on above: Result Comment: Afri can [place] Citizen GFR Calc Performed By: #### L 100.0100, L501.5200, L500.2500, L500.3400, L501.2300 ####[facility] [address] [place], [address] GAP 6 Normal 5-15 [facility] Comment on above: Performed By: #### L 100.0100, L501.5200, L500.2500, L500.3400, L501.2300 ####[facility] [address] [place], [address] GFR/1.73 sq M.predicted among non-blacks MDRD (S/P/Bld) [Vol rate/Area] 51 mL/min/{1.73_m2} Low >60 [facility] Comment on above: Result Comment: Non- GFR Calc Performed By: #### L 100.0100, L501.5200, L500.2500, L500.3400, L501.2300 ####[facility] [address] [place], [address] Glucose [Mass/Vol] 272 mg/dL High 74-106 [facility] Comment on above: Result Comment: Gluc ose result greater than or equal to 200 mg/dLsuggests DIABETES MELLITUS per A.D.A. criteria. Performed By: #### L 100.0100, L501.5200, L500.2500, L500.3400, L501.2300 ####[facility] [address] [place], [address] Potassium [Moles/Vol] 4.0 mmol/L Normal 3.5-5.1 [facility] Comment on above: Performed By: #### L 100.0100, L501.5200, L500.2500, L500.3400, L501.2300 ####[facility] [address] [place], [address] Sodium [Moles/Vol] 132 mmol/L Low 136-145 [facility] Comment on above: Performed By: #### L 100.0100, L501.5200, L500.2500, L500.3400, L501.2300 ####[facility] [address] [place], [address] Urea nitrogen [Mass/Vol] 30 mg/dL High 7-18 [facility] Comment on above: Performed By: #### L 100.0100, L501.5200, L500.2500, L500.3400, L501.2300 ####[facility] [address] [place], [address] Bedside Glucoseon 04-14-2024 FINGERSTICK GLU 259 mg/dL High 74-106 [facility] Comment on above: Result Comment: ANI BRADFORD OF PATIENT CARE PER NURSING PROTOCOL Performed By: #### L 501.080 ####[facility] [address] [place], [address] Bilirubin directOrdered By: Cuco Soler on 04-14-2024 Bilirubin.direct [Mass/Vol] 0.20 mg/dL 0.00-0.30 [facility] Bilirubin, totalOrdered By: Cuco Soler on 04-14-2024 Bilirubin [Mass/Vol] 0.80 mg/dL 0.20-1.00 [facility] CBC W/Diff, Automatedon 04-01 Absolute Lymph 0.42 X10 3/uL Low 0.83-4.51 [facility] Comment on above: Performed By: #### L 100.0100, L501.5200, L500.2500, L500.3400, L501.2300 ####[facility] [address] [place], [address] Absolute Neut 7.9 X10 3/uL High 2.0-7.7 [facility] Comment on above: Performed By: #### L 100.0100, L501.5200, L500.2500, L500.3400, L501.2300 ####[facility] [address] [place], [address] Basophils/100 WBC (Bld) 0.2 % Normal 0-[address] [facility] Comment on above: Performed By: #### L 100.0100, L501.5200, L500.2500, L500.3400, L501.2300 ####[facility] [address] [place], [address] Eosinophils/100 WBC (Bld) 0.0 % Normal 0-5 [facility] Comment on above: Performed By: #### L 100.0100, L501.5200, L500.2500, L500.3400, L501.2300 ####[facility] [address] [place], [address] Erythrocyte distribution width (RBC) [Ratio] 19.9 % High 11.6-14.6 [facility] Comment on above: Performed By: #### L 100.0100, L501.5200, L500.2500, L500.3400, L501.2300 ####[facility] [address] [place], [address] Hematocrit (Bld) [Volume fraction] 28.7 % Low 40-54 [facility] Comment on above: Performed By: #### L 100.0100, L501.5200, L500.2500, L500.3400, L501.2300 ####[facility] [address] [place], [address] Hemoglobin (Bld) [Mass/Vol] 8.4 g/dL Low 13.0-16.5 [facility] Comment on above: Performed By: #### L 100.0100, L501.5200, L500.2500, L500.3400, L501.2300 ####[facility] [address] [place], [address] IG% 0.500 Normal 0.0-0.9 [facility] Comment on above: Result Comment: IG% - Immature Granulocytes (promyelocytes, myelocytes andmetamyelocytes) > 1% indicates that a LEFT SHIFT is Present. Performed By: #### L 100.0100, L501.5200, L500.2500, L500.3400, L501.2300 ####[facility] [address] [place], [address] Lymphocytes/100 WBC (Bld) 4.9 % Low 19-41 [facility] Comment on above: Performed By: #### L 100.0100, L501.5200, L500.2500, L500.3400, L501.2300 ####[facility] [address] [place], [address] MCH (RBC) [Entitic mass] 21.8 pg Low 27.0-32.0 [facility] Comment on above: Performed By: #### L 100.0100, L501.5200, L500.2500, L500.3400, L501.2300 ####[facility] [address] [place], [address] MCHC (RBC) [Mass/Vol] 29.3 g/dL Low 32-36 [facility] Comment on above: Performed By: #### L 100.0100, L501.5200, L500.2500, L500.3400, L501.2300 ####[facility] [address] [place], [address] MCV (RBC) [Entitic vol] 74.4 fL Low 80-[address] [facility] Comment on above: Performed By: #### L 100.0100, L501.5200, L500.2500, L500.3400, L501.2300 ####[facility] [address] [place], [address] Monocytes/100 WBC (Bld) 1.9 % Normal 0-[address] [facility] Comment on above: Performed By: #### L 100.0100, L501.5200, L500.2500, L500.3400, L501.2300 ####[facility] [address] [place], [address] Neutrophils/100 WBC (Bld) 92.5 % High 47-70 [facility] Comment on above: Performed By: #### L 100.0100, L501.5200, L500.2500, L500.3400, L501.2300 ####[facility] [address] [place], [address] Nucleated RBC (Bld) [#/Vol] 0.2 10*3/uL Normal 0-5 [facility] Comment on above: Performed By: #### L 100.0100, L501.5200, L500.2500, L500.3400, L501.2300 ####[facility] [address] [place], [address] Platelet mean volume (Bld) [Entitic vol] 10.0 fL Normal 6.2-12.0 [facility] Comment on above: Performed By: #### L 100.0100, L501.5200, L500.2500, L500.3400, L501.2300 ####[facility] [address] [place], [address] Platelets (Bld) [#/Vol] 322 10*3/uL Normal 150-450 [facility] Comment on above: Performed By: #### L 100.0100, L501.5200, L500.2500, L500.3400, L501.2300 ####[facility] [address] [place], [address] RBC (Bld) [#/Vol] 3.86 10*6/uL Low 4.6-6.2 [facility] Comment on above: Performed By: #### L 100.0100, L501.5200, L500.2500, L500.3400, L501.2300 ####[facility] [address] [place], [address] RDW SD 53.1 fl High 35.1-43.9 [facility] Comment on above: Performed By: #### L 100.0100, L501.5200, L500.2500, L500.3400, L501.2300 ####[facility] [address] [place], [address] WBC (Bld) [#/Vol] 8.6 10*3/uL Normal 4.4-11.0 [facility] Comment on above: Performed By: #### L 100.0100, L501.5200, L500.2500, L500.3400, L501.2300 ####[facility] [address] 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, [address] ALK P 77 U/L Normal 45-117 [facility] Comment on above: Performed By: #### L 100.0100, L501.5200, L500.2500, L500.3400, L501.2300 ####[facility] [address] [place], [address] ALT [Catalytic activity/Vol] 19 U/L Normal 16-61 [facility] Comment on above: Performed By: #### L 100.0100, L501.5200, L500.2500, L500.3400, L501.2300 ####[facility] [address] [place], [address] AST [Catalytic activity/Vol] 16 U/L Normal 15-37 [facility] Comment on above: Performed By: #### L 100.0100, L501.5200, L500.2500, L500.3400, L501.2300 ####[facility] [address] [place], [address] Bilirubin [Mass/Vol] 0.80 mg/dL Normal 0.20-1.00 [facility] Comment on above: Result Comment: For patients on eltrombopag therapy, use of Dimension [place] TBIL is not recommended. Performed By: #### L 100.0100, L501.5200, L500.2500, L500.3400, L501.2300 ####[facility] [address] [place], [address] Bilirubin.direct [Mass/Vol] 0.20 mg/dL Normal 0.00-0.30 [facility] Comment on above: Performed By: #### L 100.0100, L501.5200, L500.2500, L500.3400, L501.2300 ####[facility] [address] [place], [address] Globulin (S) [Mass/Vol] 5.6 g/dL High 2.2-4.[address] [facility] Comment on above: Performed By: #### L 100.0100, L501.5200, L500.2500, L500.3400, L501.2300 ####[facility] [address] [place], [address] T PROT 8.3 g/dL High 6.4-8.2 [facility] Comment on above: Performed By: #### L 100.0100, L501.5200, L500.2500, L500.3400, L501.2300 ####[facility] [address] [place], [address] M8200.1000on 04-14-2024 M8200.1000 Normal Reference Ran ge = Negative MRSA DNA Nose Ql FLORES+probe GeneXpert Instrument, PCR method MRSA PCR MRSA NEGATIVE Normal [facility] Comment on above: Performed By: #### M 8200.1000, M300.4600 ####[facility] [address] [place], [address] Magnesiumon 04-14-2024 Magnesium [Mass/Vol] 2.5 mg/dL Normal 1.6-2.6 [facility] Comment on above: Performed By: #### L 100.0100, L501.5200, L500.2500, L500.3400, L501.2300 ####[facility] [address] [place], [address] Magnesium measurementOrdered By: Cuco Soler on 04-14-2024 Magnesium [Mass/Vol] 2.5 mg/dL 1.6-2.6 [facility] Nasal methicillin resistant Staphylococcus aureus (MRSA) DNA detection by PCROrdered By: Cuco Soler on 04-14-2024 MRSA DNA FLORES+probe Ql (Nose) [facility] No Panel InformationOrdered By: Cuco Soler on 04-14-2024 16 U/L 15-37 [facility] Phosphoruson 04-14-2024 Phosphate [Mass/Vol] 4.4 mg/dL Normal 2.5-4.9 [facility] Comment on above: Performed By: #### L 100.0100, L501.5200, L500.2500, L500.3400, L501.2300 ####[facility] [address] [place], [address] Procalcitoninon 04-14-2024 Procalcitonin 0.18 ng/mL High 0.00-0.09 [facility] Comment on above: Result Comment: A [...] are obtained. Performed By: #### L 509.7000 ####[facility] [address] [place], [address] Serum globulin measurementOr dered By: Cuco Soler on 04-14-2024 Globulin (S) [Mass/Vol] 5.6 g/dL High 2.2-4.2 [facility] Serum or plasma alanine briscoe otransferase (ALT) measurementOrdered By: Cuco Soler on 04-14-2024 ALT [Catalytic activity/Vol] 19 U/L 16-61 [facility] Serum or plasma albumin grazyna urement (mass/volume)Ordered By: Cuco Soler on 04-14-2024 Albumin [Mass/Vol] 2.7 g/dL Low 3.2-5.0 [facility] Serum or plasma alkaline benjamin sphatase measurementOrdered By: Cuco Soler on 04-14-2024 ALP [Catalytic activity/Vol] 77 U/L 45-117 [facility] Serum procalcitonin measurem entOrdered By: Fran Rodriguez on 04-14-2024 Procalcitonin [Mass/Vol] 0.18 ng/mL High 0.00-0.09 [facility] Strep pneumoniae Antig(UR,CS F)on 04-14-2024 STPAG Normal [facility] Comment on above: Performed By: #### M 8200.1000, M300.4600 ####[facility] [address] [place], [address] Total proteinOrdered By: Wilder geminifred Soler on 04-14-2024 Protein [Mass/Vol] 8.3 g/dL High 6.4-8.2 [facility] 6 Minute Walk Teston 025 6 Minute Walk Test Normal [facility] Basic Metabolic Profile (BMP )on 04-13-2024 BUN/CRE 17.1 RATIO Normal 10-20 [facility] Comment on above: Performed By: #### L 501.5200, L500.2500, L501.2300, L100.0100 ####[facility] [address] [place], [address] CA,Total 8.9 mg/dL Normal 8.5-10.1 [facility] Comment on above: Performed By: #### L 501.5200, L500.2500, L501.2300, L100.0100 ####[facility] [address] [place], [address] Chloride [Moles/Vol] 101 mmol/L Normal 98-107 [facility] Comment on above: Performed By: #### L 501.5200, L500.2500, L501.2300, L100.0100 ####[facility] [address] [place], [address] CO2 [Moles/Vol] 27.0 mmol/L Normal 21.0-32.0 [facility] Comment on above: Performed By: #### L 501.5200, L500.2500, L501.2300, L100.0100 ####[facility] [address] [place], [address] Creatinine [Mass/Vol] 1.17 mg/dL Normal 0.70-1.30 [facility] Comment on above: Result Comment: The validity of the calculated GFR GFRAA in patients over70 years has not been determined. Clinical correlation isessential. Performed By: #### L 501.5200, L500.2500, L501.2300, L100.0100 ####[facility] [address] [place], [address] ECRCL 93.62 ml/min Normal [facility] Comment on above: Performed By: #### L 501.5200, L500.2500, L501.2300, L100.0100 ####[facility] [address] [place], [address] EST GFR - AA 82 mL/min Normal >60 [facility] Comment on above: Result Comment: Afri can [place] Citizen GFR Calc Performed By: #### L 501.5200, L500.2500, L501.2300, L100.0100 ####[facility] [address] [place], [address] GAP 6 Normal 5-15 [facility] Comment on above: Performed By: #### L 501.5200, L500.2500, L501.2300, L100.0100 ####[facility] [address] [place], [address] GFR/1.73 sq M.predicted among non-blacks MDRD (S/P/Bld) [Vol rate/Area] 67 mL/min/{1.73_m2} Normal >60 [facility] Comment on above: Result Comment: Non- GFR Calc Performed By: #### L 501.5200, L500.2500, L501.2300, L100.0100 ####[facility] [address] [place], [address] Glucose [Mass/Vol] 193 mg/dL High 74-106 [facility] Comment on above: Result Comment: Fast ing Glucose result greater than or equal to 126 mg/dLsuggests DIABETES MELLITUS per A.D.A. criteria. Performed By: #### L 501.5200, L500.2500, L501.2300, L100.0100 ####[facility] [address] [place], [address] Potassium [Moles/Vol] 3.6 mmol/L Normal 3.5-5.1 [facility] Comment on above: Performed By: #### L 501.5200, L500.2500, L501.2300, L100.0100 ####[facility] [address] [place], [address] Sodium [Moles/Vol] 134 mmol/L Low 136-145 [facility] Comment on above: Performed By: #### L 501.5200, L500.2500, L501.2300, L100.0100 ####[facility] [address] [place], [address] Urea nitrogen [Mass/Vol] 20 mg/dL High 7-18 [facility] Comment on above: Performed By: #### L 501.5200, L500.2500, L501.2300, L100.0100 ####[facility] [address] [place], [address] Bedside Glucoseon 04-13-2024 FINGERSTICK GLU 190 mg/dL High 74-106 [facility] Comment on above: Result Comment: ANI BRADFORD OF PATIENT CARE PER NURSING PROTOCOL Performed By: #### L 501.080 ####[facility] [address] [place], [address] CBC W/Diff, Automatedon 04-01 Absolute Lymph 1.53 X10 3/uL Normal 0.83-4.51 [facility] Comment on above: Performed By: #### L 501.5200, L500.2500, L501.2300, L100.0100 ####[facility] [address] [place], [address] Absolute Neut 7.3 X10 3/uL Normal 2.0-7.7 [facility] Comment on above: Performed By: #### L 501.5200, L500.2500, L501.2300, L100.0100 ####[facility] [address] [place], [address] Basophils/100 WBC (Bld) 0.5 % Normal 0-[address] [facility] Comment on above: Performed By: #### L 501.5200, L500.2500, L501.2300, L100.0100 ####[facility] [address] [place], [address] Eosinophils/100 WBC (Bld) 3.7 % Normal 0-5 [facility] Comment on above: Performed By: #### L 501.5200, L500.2500, L501.2300, L100.0100 ####[facility] [address] [place], [address] Erythrocyte distribution width (RBC) [Ratio] 19.9 % High 11.6-14.6 [facility] Comment on above: Performed By: #### L 501.5200, L500.2500, L501.2300, L100.0100 ####[facility] [address] [place], [address] Hematocrit (Bld) [Volume fraction] 26.7 % Low 40-54 [facility] Comment on above: Performed By: #### L 501.5200, L500.2500, L501.2300, L100.0100 ####[facility] [address] [place], [address] Hemoglobin (Bld) [Mass/Vol] 7.7 g/dL Low 13.0-16.5 [facility] Comment on above: Performed By: #### L 501.5200, L500.2500, L501.2300, L100.0100 ####[facility] [address] [place], [address] IG% 0.300 Normal 0.0-0.9 [facility] Comment on above: Result Comment: IG% - Immature Granulocytes (promyelocytes, myelocytes andmetamyelocytes) > 1% indicates that a LEFT SHIFT is Present. Performed By: #### L 501.5200, L500.2500, L501.2300, L100.0100 ####[facility] [address] [place], [address] Lymphocytes/100 WBC (Bld) 14.9 % Low 19-41 [facility] Comment on above: Performed By: #### L 501.5200, L500.2500, L501.2300, L100.0100 ####[facility] [address] [place], [address] MCH (RBC) [Entitic mass] 21.6 pg Low 27.0-32.0 [facility] Comment on above: Performed By: #### L 501.5200, L500.2500, L501.2300, L100.0100 ####[facility] [address] [place], [address] MCHC (RBC) [Mass/Vol] 28.8 g/dL Low 32-36 [facility] Comment on above: Performed By: #### L 501.5200, L500.2500, L501.2300, L100.0100 ####[facility] [address] [place], [address] MCV (RBC) [Entitic vol] 74.8 fL Low 80-[address] [facility] Comment on above: Performed By: #### L 501.5200, L500.2500, L501.2300, L100.0100 ####[facility] [address] [place], [address] Monocytes/100 WBC (Bld) 9.8 % Normal 0-[address] [facility] Comment on above: Performed By: #### L 501.5200, L500.2500, L501.2300, L100.0100 ####[facility] [address] [place], [address] Neutrophils/100 WBC (Bld) 70.8 % High 47-70 [facility] Comment on above: Performed By: #### L 501.5200, L500.2500, L501.2300, L100.0100 ####[facility] [address] [place], [address] Nucleated RBC (Bld) [#/Vol] 0 10*3/uL Normal 0-5 [facility] Comment on above: Performed By: #### L 501.5200, L500.2500, L501.2300, L100.0100 ####[facility] [address] [place], [address] Platelet mean volume (Bld) [Entitic vol] 9.6 fL Normal 6.2-12.0 [facility] Comment on above: Performed By: #### L 501.5200, L500.2500, L501.2300, L100.0100 ####[facility] [address] [place], [address] Platelets (Bld) [#/Vol] 289 10*3/uL Normal 150-450 [facility] Comment on above: Performed By: #### L 501.5200, L500.2500, L501.2300, L100.0100 ####[facility] [address] [place], [address] RBC (Bld) [#/Vol] 3.57 10*6/uL Low 4.6-6.2 [facility] Comment on above: Performed By: #### L 501.5200, L500.2500, L501.2300, L100.0100 ####[facility] [address] [place], [address] RDW SD 53.8 fl High 35.1-43.9 [facility] Comment on above: Performed By: #### L 501.5200, L500.2500, L501.2300, L100.0100 ####[facility] [address] [place], [address] WBC (Bld) [#/Vol] 10.3 10*3/uL Normal 4.4-11.0 [facility] Comment on above: Performed By: #### L 501.5200, L500.2500, L501.2300, L100.0100 ####[facility] [address] [place], [address] Chest without Contraston Chest without Contrast Normal [facility] Legionella Antigen Urineon 0 04-13-2024 LEGU Normal [facility] Comment on above: Performed By: #### M 300.4500 ####[facility] [address] [place], [address] Magnesiumon 04-13-2024 Magnesium [Mass/Vol] 2.3 mg/dL Normal 1.6-2.6 [facility] Comment on above: Performed By: #### L 501.5200, L500.2500, L501.2300, L100.0100 ####[facility] [address] [place], [address] Phosphoruson 04-13-2024 Phosphate [Mass/Vol] 4.4 mg/dL Normal 2.5-4.9 [facility] Comment on above: Performed By: #### L 501.5200, L500.2500, L501.2300, L100.0100 ####[facility] [address] [place], [address] RESPIRATORY PANEL MOLECULARo n 04-13-2024 RP PANEL Normal [facility] Comment on above: Performed By: #### M 100.638 ####[facility] [address] [place], [address] Respiratory pathogens detect ion panel by molecular detection methodOrdered By: Cuco Soler on 04-13-2024 Respiratory pathogens DNA and RNA panel FLROES+probe (Resp) [facility] Urine Legionella pneumophila antigen detectionOrdered By: Cuco Soler on 04-13-2024 L. pneumophila Ag Ql (U) [facility] 12 Lead EKGon 04-12-2024 12 Lead EKG Normal [facility] BNP (brain natriuretic pepti de measurement)Ordered By: Luli Alex on 04-12-2024 Natriuretic peptide B (Bld) [Mass/Vol] 124.0 pg/mL High 0-100 [facility] BNP,B-Type NATRIURETIC PEPTI Sindy 04-12-2024 Natriuretic peptide B (Bld) [Mass/Vol] 124.0 pg/mL High 0-100 [facility] Comment on above: Performed By: #### L 503.6620, L500.2500, L100.0100 ####[facility] [address] [place], [address] Basic Metabolic Profile (BMP )on 04-12-2024 BUN/CRE 16.5 RATIO Normal 10-20 [facility] Comment on above: Order Comment: REDRA W. PREVIOUS SPECIMEN REJECTED DUE TOHEMOLYSIS. 04/12/24 1220 Sharon Sandoval.1 Performed By: #### L 500.2500, L501.4020 ####[facility] [address] [place], [address] CA,Total 9.4 mg/dL Normal 8.5-10.1 [facility] Comment on above: Order Comment: REDRA W. PREVIOUS SPECIMEN REJECTED DUE TOHEMOLYSIS. 04/12/24 1220 Sharon Frankzano.1 Performed By: #### L 500.2500, L501.4020 ####[facility] [address] [place], [address] Chloride [Moles/Vol] 105 mmol/L Normal 98-107 [facility] Comment on above: Order Comment: REDRA W. PREVIOUS SPECIMEN REJECTED DUE TOHEMOLYSIS. 04/12/24 1220 Sharon Sandoval.1 Performed By: #### L 500.2500, L501.4020 ####[facility] [address] [place], [address] CO2 [Moles/Vol] 26.0 mmol/L Normal 21.0-32.0 [facility] Comment on above: Order Comment: REDRA W. PREVIOUS SPECIMEN REJECTED DUE TOHEMOLYSIS. 04/12/240 Sharon Sandoval.1 Performed By: #### L 500.2500, L501.4020 ####[facility] [address] [place], [address] Creatinine [Mass/Vol] 0.97 mg/dL Normal 0.70-1.30 [facility] Comment on above: Order Comment: REDRA W. PREVIOUS SPECIMEN REJECTED DUE TOHEMOLYSIS. 04/12/240 Sharon Sandoval.1 Result Comment: The validity of the calculated GFR GFRAA in patients over70 years has not been determined. Clinical correlation isessential. Performed By: #### L 500.2500, L501.4020 ####[facility] [address] [place], [address] EST GFR - AA 101 mL/min Normal >60 [facility] Comment on above: Order Comment: REDRA W. PREVIOUS SPECIMEN REJECTED DUE TOHEMOLYSIS. 04/12/24 1220 Sharon Sandoval.1 Result Comment: Afri can [place] Citizen GFR Calc Performed By: #### L 500.2500, L501.4020 ####[facility] [address] [place], [address] GAP 3 Low 5-15 [facility] Comment on above: Order Comment: REDRA W. PREVIOUS SPECIMEN REJECTED DUE TOHEMOLYSIS. 04/12/24 1220 Sharon Sandoval.1 Performed By: #### L 500.2500, L501.4020 ####[facility] [address] [place], [address] GFR/1.73 sq M.predicted among non-blacks MDRD (S/P/Bld) [Vol rate/Area] 84 mL/min/{1.73_m2} Normal >60 [facility] Comment on above: Order Comment: REDRA W. PREVIOUS SPECIMEN REJECTED DUE TOHEMOLYSIS. 04/12/24 1220 Sharon Sandoval.1 Result Comment: Non- GFR Calc Performed By: #### L 500.2500, L501.4020 ####[facility] [address] [place], [address] Glucose [Mass/Vol] 124 mg/dL High 74-106 [facility] Comment on above: Order Comment: REDRA W. PREVIOUS SPECIMEN REJECTED DUE TOHEMOLYSIS. 04/12/24 1220 Sharon Sandoval.1 Result Comment: Fast ing Glucose result from 100 to 125 mg/dLsuggests IMPAIRED HOMEOSTASIS per A.D.A. criteria. Performed By: #### L 500.2500, L501.4020 ####[facility] [address] [place], [address] Potassium [Moles/Vol] 3.7 mmol/L Normal 3.5-5.1 [facility] Comment on above: Order Comment: REDRA W. PREVIOUS SPECIMEN REJECTED DUE TOHEMOLYSIS. 04/12/24 1220 Sharon Sandoval.1 Performed By: #### L 500.2500, L501.4020 ####[facility] [address] [place], [address] Sodium [Moles/Vol] 134 mmol/L Low 136-145 [facility] Comment on above: Order Comment: REDRA W. PREVIOUS SPECIMEN REJECTED DUE TOHEMOLYSIS. 04/12/24 1220 Sharon Sandoval.1 Performed By: #### L 500.2500, L501.4020 ####[facility] [address] [place], [address] Urea nitrogen [Mass/Vol] 16 mg/dL Normal 7-18 [facility] Comment on above: Order Comment: NEETU Giles. PREVIOUS SPECIMEN REJECTED DUE TOHEMOLYSIS. 04/12/24 1220 Sharon Sandoval.1 Performed By: #### L 500.2500, L501.4020 ####[facility] [address] [place], [address] BUN Normal 7-18 [facility] Comment on above: Order Comment: 'TROP ' Serial specimen #1, #2 or #3: 1 Result Comment: This specimen has been REJECTED due to Laboratory criteria:Hemolyzed.PORSCHE has been notified of need of recollection.04/12/24 1218 Sharon Frankzano Performed By: #### L 503.6620, L500.2500, L100.0100 ####[facility] [address] [place], [address] BUN/CRE Normal 10-20 [facility] Comment on above: Order Comment: 'TROP ' Serial specimen #1, #2 or #3: 1 Result Comment: This specimen has been REJECTED due to Laboratory criteria:Hemolyzed.PORSCHE has been notified of need of recollection.04/12/24 1218 Sharon Sandoval Performed By: #### L 503.6620, L500.2500, L100.0100 ####[facility] [address] [place], [address] CA,Total Normal 8.5-10.1 [facility] Comment on above: Order Comment: 'TROP ' Serial specimen #1, #2 or #3: 1 Result Comment: This specimen has been REJECTED due to Laboratory criteria:Hemolyzed.PORSCHE has been notified of need of recollection.04/12/24 1218 Sharon Sandoval Performed By: #### L 503.6620, L500.2500, L100.0100 ####[facility] [address] [place], [address] CL Normal 98-107 [facility] Comment on above: Order Comment: 'TROP ' Serial specimen #1, #2 or #3: 1 Result Comment: This specimen has been REJECTED due to Laboratory criteria:Hemolyzed.PORSCHE has been notified of need of recollection.04/12/24 1218 Sharon Sandoval Performed By: #### L 503.6620, L500.2500, L100.0100 ####[facility] [address] [place], [address] CO2 Normal 21.0-32.0 [facility] Comment on above: Order Comment: 'TROP ' Serial specimen #1, #2 or #3: 1 Result Comment: This specimen has been REJECTED due to Laboratory criteria:Hemolyzed.PORSCHE has been notified of need of recollection.04/12/24 1218 Sharon Sandoval Performed By: #### L 503.6620, L500.2500, L100.0100 ####[facility] [address] [place], [address] CREAT,SERUM Normal 0.70-1.30 [facility] Comment on above: Order Comment: 'TROP ' Serial specimen #1, #2 or #3: 1 Result Comment: This specimen has been REJECTED due to Laboratory criteria:Hemolyzed.ELOISAE has been notified of need of recollection.04/12/248 Sharon Sandoval Performed By: #### L 503.6620, L500.2500, L100.0100 ####[facility] [address] [place], [address] EST GFR Normal >60 [facility] Comment on above: Order Comment: 'TROP ' Serial specimen #1, #2 or #3: 1 Result Comment: This specimen has been REJECTED due to Laboratory criteria:Hemolyzed.PORSCHE has been notified of need of recollection.04/12/24 1218 Sharon Sandoval Performed By: #### L 503.6620, L500.2500, L100.0100 ####[facility] [address] [place], [address] EST GFR - AA Normal >60 [facility] Comment on above: Order Comment: 'TROP ' Serial specimen #1, #2 or #3: 1 Result Comment: This specimen has been REJECTED due to Laboratory criteria:Hemolyzed.CHRISILIE has been notified of need of recollection.04/12/24 1218 Sharon Sandoval Performed By: #### L 503.6620, L500.2500, L100.0100 ####[facility] [address] [place], [address] GAP Normal 5-15 [facility] Comment on above: Order Comment: 'TROP ' Serial specimen #1, #2 or #3: 1 Result Comment: This specimen has been REJECTED due to Laboratory criteria:Hemolyzed.LORILIE has been notified of need of recollection.04/12/24 1218 Sharon Sandoval Performed By: #### L 503.6620, L500.2500, L100.0100 ####[facility] [address] [place], [address] GLU Normal 74-106 [facility] Comment on above: Order Comment: 'TROP ' Serial specimen #1, #2 or #3: 1 Result Comment: This specimen has been REJECTED due to Laboratory criteria:Hemolyzed.LORILIE has been notified of need of recollection.04/12/24 1218 Sharon Sandoval Performed By: #### L 503.6620, L500.2500, L100.0100 ####[facility] [address] [place], [address] Potassium Normal 3.5-5.1 [facility] Comment on above: Order Comment: 'TROP ' Serial specimen #1, #2 or #3: 1 Result Comment: This specimen has been REJECTED due to Laboratory criteria:Hemolyzed.LORILIE has been notified of need of recollection.04/12/24 1218 Sharon Sandoval Performed By: #### L 503.6620, L500.2500, L100.0100 ####[facility] [address] [place], [address] Basic Metabolic Profile (BMP) Normal 136-145 [facility] Comment on above: Order Comment: 'TROP ' Serial specimen #1, #2 or #3: 1 Result Comment: This specimen has been REJECTED due to Laboratory criteria:Hemolyzed.PORSCHE has been notified of need of recollection.04/12/24 1218 Sharon Sandoval Performed By: #### L 503.6620, L500.2500, L100.0100 ####[facility] [address] [place], [address] Bedside Glucoseon 04-12-2024 FINGERSTICK GLU 161 mg/dL High 74-106 [facility] Comment on above: Result Comment: ANI GEMENT OF PATIENT CARE PER NURSING PROTOCOL Performed By: #### L 501.080 ####[facility] [address] [place], [address] FINGERSTICK GLU 159 mg/dL High 74-106 [facility] Comment on above: Result Comment: ANI GEMENT OF PATIENT CARE PER NURSING PROTOCOL Performed By: #### L 501.080 ####[facility] [address] [place], [address] Blood cultureOrdered By: Katherin Alex on 04-12-2024 Bacteria identified Cx Nom (Bld) No growth in 5 days. [facility] Bacteria identified Cx Nom (Bld) Presumptive Micrococcus spp. Abnormal [facility] CBC W/Diff, Automatedon 04-01 Absolute Lymph 0.90 X10 3/uL Normal 0.83-4.51 [facility] Comment on above: Performed By: #### L 100.0100 ####[facility] [address] [place], [address] Absolute Neut 9.6 X10 3/uL High 2.0-7.7 [facility] Comment on above: Performed By: #### L 100.0100 ####[facility] [address] [place], [address] Basophils/100 WBC (Bld) 0.3 % Normal 0-[address] [facility] Comment on above: Performed By: #### L 100.0100 ####[facility] [address] [place], [address] Eosinophils/100 WBC (Bld) 2.1 % Normal 0-5 [facility] Comment on above: Performed By: #### L 100.0100 ####[facility] [address] [place], [address] Erythrocyte distribution width (RBC) [Ratio] 20.1 % High 11.6-14.6 [facility] Comment on above: Performed By: #### L 100.0100 ####[facility] [address] [place], [address] Hematocrit (Bld) [Volume fraction] 28.3 % Low 40-54 [facility] Comment on above: Performed By: #### L 100.0100 ####[facility] [address] [place], [address] Hemoglobin (Bld) [Mass/Vol] 8.2 g/dL Low 13.0-16.5 [facility] Comment on above: Performed By: #### L 100.0100 ####[facility] [address] [place], [address] IG% 0.400 Normal 0.0-0.9 [facility] Comment on above: Result Comment: IG% - Immature Granulocytes (promyelocytes, myelocytes andmetamyelocytes) > 1% indicates that a LEFT SHIFT is Present. Performed By: #### L 100.0100 ####[facility] [address] [place], [address] Lymphocytes/100 WBC (Bld) 7.5 % Low 19-41 [facility] Comment on above: Performed By: #### L 100.0100 ####[facility] [address] [place], [address] MCH (RBC) [Entitic mass] 21.7 pg Low 27.0-32.0 [facility] Comment on above: Performed By: #### L 100.0100 ####[facility] [address] [place], [address] MCHC (RBC) [Mass/Vol] 29.0 g/dL Low 32-36 [facility] Comment on above: Performed By: #### L 100.0100 ####[facility] [address] [place], [address] MCV (RBC) [Entitic vol] 74.9 fL Low 80-[address] [facility] Comment on above: Performed By: #### L 100.0100 ####[facility] [address] [place], [address] Monocytes/100 WBC (Bld) 9.4 % Normal 0-10 [facility] Comment on above: Performed By: #### L 100.0100 ####[facility] [address] [place], [address] Neutrophils/100 WBC (Bld) 80.3 % High 47-70 [facility] Comment on above: Performed By: #### L 100.0100 ####[facility] [address] [place], [address] Nucleated RBC (Bld) [#/Vol] 0 10*3/uL Normal 0-5 [facility] Comment on above: Performed By: #### L 100.0100 ####[facility] [address] [place], [address] Platelet mean volume (Bld) [Entitic vol] 9.6 fL Normal 6.2-12.0 [facility] Comment on above: Performed By: #### L 100.0100 ####[facility] [address] [place], [address] Platelets (Bld) [#/Vol] 282 10*3/uL Normal 150-450 [facility] Comment on above: Performed By: #### L 100.0100 ####[facility] [address] [place], [address] RBC (Bld) [#/Vol] 3.78 10*6/uL Low 4.6-6.2 [facility] Comment on above: Performed By: #### L 100.0100 ####[facility] [address] [place], [address] RDW SD 54.1 fl High 35.1-43.9 [facility] Comment on above: Performed By: #### L 100.0100 ####[facility] [address] [place], [address] WBC (Bld) [#/Vol] 12.0 10*3/uL High 4.4-11.0 [facility] Comment on above: Performed By: #### L 100.0100 ####[facility] [address] [place], [address] Absolute Lymph 0.90 X10 3/uL Normal 0.83-4.51 [facility] Comment on above: Performed By: #### L 503.6620, L500.2500, L100.0100 ####[facility] [address] [place], [address] Absolute Neut 9.9 X10 3/uL High 2.0-7.7 [facility] Comment on above: Performed By: #### L 503.6620, L500.2500, L100.0100 ####[facility] [address] [place], [address] Basophils/100 WBC (Bld) 0.4 % Normal 0-[address] [facility] Comment on above: Performed By: #### L 503.6620, L500.2500, L100.0100 ####[facility] [address] [place], [address] Eosinophils/100 WBC (Bld) 2.3 % Normal 0-5 [facility] Comment on above: Performed By: #### L 503.6620, L500.2500, L100.0100 ####[facility] [address] [place], [address] Erythrocyte distribution width (RBC) [Ratio] 19.9 % High 11.6-14.6 [facility] Comment on above: Performed By: #### L 503.6620, L500.2500, L100.0100 ####[facility] [address] [place], [address] Hematocrit (Bld) [Volume fraction] 27.8 % Low 40-54 [facility] Comment on above: Performed By: #### L 503.6620, L500.2500, L100.0100 ####[facility] [address] [place], [address] Hemoglobin (Bld) [Mass/Vol] 8.2 g/dL Low 13.0-16.5 [facility] Comment on above: Performed By: #### L 503.6620, L500.2500, L100.0100 ####[facility] [address] [place], [address] IG% 0.400 Normal 0.0-0.9 [facility] Comment on above: Result Comment: IG% - Immature Granulocytes (promyelocytes, myelocytes andmetamyelocytes) > 1% indicates that a LEFT SHIFT is Present. Performed By: #### L 503.6620, L500.2500, L100.0100 ####[facility] [address] [place], [address] Lymphocytes/100 WBC (Bld) 7.4 % Low 19-41 [facility] Comment on above: Performed By: #### L 503.6620, L500.2500, L100.0100 ####[facility] [address] [place], [address] MCH (RBC) [Entitic mass] 22.1 pg Low 27.0-32.0 [facility] Comment on above: Performed By: #### L 503.6620, L500.2500, L100.0100 ####[facility] [address] [place], [address] MCHC (RBC) [Mass/Vol] 29.5 g/dL Low 32-36 [facility] Comment on above: Performed By: #### L 503.6620, L500.2500, L100.0100 ####[facility] [address] [place], [address] MCV (RBC) [Entitic vol] 74.9 fL Low 80-[address] [facility] Comment on above: Performed By: #### L 503.6620, L500.2500, L100.0100 ####[facility] [address] [place], [address] Monocytes/100 WBC (Bld) 8.5 % Normal 0-10 [facility] Comment on above: Performed By: #### L 503.6620, L500.2500, L100.0100 ####[facility] [address] [place], [address] Neutrophils/100 WBC (Bld) 81.0 % High 47-70 [facility] Comment on above: Performed By: #### L 503.6620, L500.2500, L100.0100 ####[facility] [address] [place], [address] Nucleated RBC (Bld) [#/Vol] 0 10*3/uL Normal 0-5 [facility] Comment on above: Performed By: #### L 503.6620, L500.2500, L100.0100 ####[facility] [address] [place], [address] Platelet mean volume (Bld) [Entitic vol] 10.5 fL Normal 6.2-12.0 [facility] Comment on above: Performed By: #### L 503.6620, L500.2500, L100.0100 ####[facility] [address] [place], [address] Platelets (Bld) [#/Vol] 349 10*3/uL Normal 150-450 [facility] Comment on above: Performed By: #### L 503.6620, L500.2500, L100.0100 ####[facility] [address] [place], [address] RBC (Bld) [#/Vol] 3.71 10*6/uL Low 4.6-6.2 [facility] Comment on above: Performed By: #### L 503.6620, L500.2500, L100.0100 ####[facility] [address] [place], [address] RDW SD 53.1 fl High 35.1-43.9 [facility] Comment on above: Performed By: #### L 503.6620, L500.2500, L100.0100 ####[facility] [address] [place], [address] WBC (Bld) [#/Vol] 12.2 10*3/uL High 4.4-11.0 [facility] Comment on above: Performed By: #### L 503.6620, L500.2500, L100.0100 ####[facility] [address] [place], [address] CO2 (BldV) [Moles/Vol]Ordere d By: Luli Alex on 04-12-2024 CO2 [Moles/Vol] 24 mmol/L 23-33 [facility] Chest 1 View (Portable)on Chest 1 View (Portable) Normal [facility] Emergency Department Summary on 04-12-2024 Emergency Department Summary Normal [facility] H AND P Exam - Hospitaliston 04-12-2024 H&P Exam - Hospitalist Normal [facility] Influenza virus A and B and SARS-CoV-2 (COVID-19) and Respiratory syncytial virus RNAOrdered By: Luli Alex on 04-12-2024 SARS-CoV-2 (COVID-19) RNA FLORES+probe Ql (Unsp spec) [facility] L501.4020on 04-12-2024 TROPONIN-I HS 12 pg/mL Normal 3.0-78.0 [facility] Comment on above: Order Comment: Comme nts: SPECIMEN #3'TROP' Serial specimen #1, #2 or #3: 3 Result Comment: Plea se Note: New Test Units and Gender Specific Reference Ranges. For more information see Policy Stat Procedure [place] High Sensitivity Troponin (TNIH) and attachments. Performed By: #### L 501.4020 ####[facility] [address] [place], [address] TROPONIN-I HS 18 pg/mL Normal 3.0-78.0 [facility] Comment on above: Order Comment: Comme nts: SPECIMEN #2'TROP' Serial specimen #1, #2 or #3: 2 Result Comment: Plea se Note: New Test Units and Gender Specific Reference Ranges. For more information see Policy Stat Procedure [place] High Sensitivity Troponin (TNIH) and attachments. Performed By: #### L 501.4020 ####[facility] [address] [place], [address] TROPONIN-I HS 16 pg/mL Normal 3.0-78.0 [facility] Comment on above: Order Comment: NEETU Giles. PREVIOUS SPECIMEN REJECTED DUE TOHEMOLYSIS. 04/12/24 1220 Sharon Sandoval.1 Result Comment: Plea se Note: New Test Units and Gender Specific Reference Ranges. For more information see Policy Stat Procedure [place] High Sensitivity Troponin (TNIH) and attachments. Performed By: #### L 500.2500, L501.4020 ####[facility] [address] [place], [address] M100.678on 04-12-2024 M100.678 Pending SARS-CoV-2 (COVID 19) Negative INFLUENZA A Negative INFLUENZA B Negative RSV PCR Negative Normal [facility] Comment on above: Performed By: #### M 100.678 ####[facility] [address] [place], [address] No Panel InformationOrdered By: Luli Alex on 04-12-2024 JOSHUA [facility] Not entered [facility] Cannula [facility] Organism identificationOrder ed By: Luli Alex on 04-12-2024 Microorganism identified Cx Nom (Unsp spec) [facility] Troponin IOrdered By: Eduin Ospina on 04-12-2024 Troponin I 12 pg/mL 3.0-78.0 [facility] Venous Blood Gason 5 Blood Gas Type JOSHUA Normal [facility] Comment on above: Performed By: #### L 9000.0810 ####[facility] [address] [place], [address] CO2 [Moles/Vol] 24 mmol/L Normal 23-33 [facility] Comment on above: Performed By: #### L 9000.0810 ####[facility] [address] [place], [address] FI02 5.0 Normal [facility] Comment on above: Performed By: #### L 9000.0810 ####[facility] [address] [place], [address] HCO3 (Bld) [Moles/Vol] 23 mmol/L Normal 22-26 [facility] Comment on above: Performed By: #### L 9000.0810 ####[facility] [address] [place], [address] O2 Delivery Dev Cannula Normal [facility] Comment on above: Performed By: #### L 9000.0810 ####[facility] [address] [place], [address] SITE Not entered Normal [facility] Comment on above: Performed By: #### L 9000.0810 ####[facility] [address] [place], [address] VBG BE -1 mmol/L Normal -1.0-3.5 [facility] Comment on above: Performed By: #### L 9000.0810 ####[facility] [address] [place], [address] VBG pCO2 34.8 mmHg Low 41-51 [facility] Comment on above: Performed By: #### L 9000.0810 ####[facility] [address] [place], [address] VBG pH 7.43 High 7.32-7.42 [facility] Comment on above: Performed By: #### L 9000.0810 ####[facility] [address] [place], [address] VBG PO2 30 mmHg Normal 25-40 [facility] Comment on above: Performed By: #### L 9000.0810 ####[facility] [address] [place], [address] VBG SO2 60 Normal 50-70 [facility] Comment on above: Performed By: #### L 9000.0810 ####[facility] [address] [place], [address] Venous blood base excess elizabeth surementOrdered By: Luli Alex on 04-12-2024 Base excess Calc (BldV) [Moles/Vol] -1 mmol/L -1.0-3.5 [facility] Venous blood bicarbonate elizabeth surementOrdered By: Luli Alxe on 04-12-2024 HCO3 (Bld) [Moles/Vol] 23 mmol/L 22-26 [facility] Venous blood pH measurementO rdered By: Luli Alex on 04-12-2024 pH (BldV) 7.43 [pH] High 7.32-7.42 [facility] Venous blood partial pressur e of carbon dioxide measurementOrdered By: Luli Alex on 04-12-2024 CO2 (BldV) [Partial pressure] 34.8 mm[Hg] Low 41-51 [facility] Venous blood partial pressur e of oxygen measurementOrdered By: Luli Alex on 04-12-2024 Oxygen (BldV) [Partial pressure] 30 mm[Hg] 25-40 [facility] 36on 04-09-2024 36 Call ref #[id number] 000 NAN for CPT 82969 & 95655 Normal [facility] No Panel Informationon 04-07 1. There is [...] MD Electronically Signed Date/Time: 04/07/2024 12:27 AM [facility] [employer] Patient Name: [facility]RUNAL [facility] 1965 [id number] Exam Date/Time: 04/06/2024 13:31 Procedure: [facility] US CAROTID ARTERY DUPLEX BILATERAL Ordering Provider: [...] 50-69% ECA systolic: 256 cm/sec Vertebral: Antegrade [facility] Sameer Etienne MD - 04/07/2024 Patient Name: KRUNAL LEOS : 1965 Exam Date/Time: 04/06/2024 13:31 Procedure: [facility] US CAROTID ARTERY DUPLEX BILATERAL Ordering Provider: [...] MD Electronically Signed Date/Time: 04/07/2024 12:27 AM [facility] US CAROTID ARTERY DUPLE X BILATERALon 04-07-2024 [facility] US CAROTID ARTERY DUPLEX BILATERAL Patient Name: KRUNAL LEOS : 1965 [id number] Exam Date/Time: 04/06/2024 13:31 Procedure: [facility] US CAROTID ARTERY DUPLEX BILATERAL Ordering Provider: [...] Signed Date/Time: 04/07/2024 12:27 AM EST Normal [facility] Office Visit Reporton 2023 Office Visit Report Normal [facility] Bedside Glucoseon 03-27-2024 FINGERSTICK GLU 195 mg/dL High 74-106 [facility] Comment on above: Result Comment: ANI GEMENT OF PATIENT CARE PER NURSING PROTOCOL Performed By: #### L 501.080 ####[facility] [address] [place], [address] Colonoscopy Reporton 024 Colonoscopy Report Normal [facility] EGD Reporton 03-27-2024 EGD Report Normal [facility] H Pylori (initial)on 024 H Pylori (initial) Normal [facility] Comment on above: Performed By: #### P H.PYLORI ####[facility] [address] [place], [address] MR/POSTOP.ANEon 03-27-2024 MR/POSTOP.ANE Normal [facility] MR/SOTWVIML7gh 03-27-2024 MR/POSTOPAN2 Normal [facility] Surgery Specimen Level Dolores 03-27-2024 Surgery Specimen Level IV Normal [facility] Comment on above: Performed By: #### P SUIV ####[facility] [address] [place], [address] Pulmonary Visit Reporton Pulmonary Visit Report Normal [facility] MR/PAT.ANEon 03-20-2024 MR/PAT.ANE Normal [facility] Cardiology Visit Reporton Cardiology Visit Report Normal [facility] RICARDO w/ Reflex Mult Confirmon 03-05-2024 RICARDO,DIRECT Negative Normal Negative [facility] Comment on above: Result Comment: Perf ormed at: - [facility] [address] [id number] Director: Chance Morales PhD, Phone: [phone] Performed By: #### L 320.9071, T4047.7481, J2726.4784, P0461.1877 ####[facility] [address] [place], [address] ANCAon 03-05-2024 Atypical pANCA <1:20 Normal Neg:<1:20 [facility] Comment on above: Result Comment: The atypical pANCA pattern has been observed in asignificant percentage of patients with ulcerative colitis,primary sclerosing cholangitis and autoimmune hepatitis. Performed By: #### L 505.7010, L3300.1200, L3100.5450, L4600.0100 ####[facility] [address] [place], [address] Cytoplasmic Ab <1:20 Normal Neg:<1:20 [facility] Comment on above: Performed By: #### L 505.7010, L3300.1200, L3100.5450, L4600.0100 ####[facility] [address] [place], [address] Perinuclear Ab. <1:20 Normal Neg:<1:20 [facility] Comment on above: Result Comment: The presence of positive fluorescence exhibiting P-ANCA orC-ANCA patterns alone is not specific for the diagnosis ofWegener's Granulomatosis (WG) or microscopic polyangiitis.Decisions about treatment should not be based solely onANCA IFA results. The International ANCA Group Consensusrecommends follow up testing of positive sera with both NY-3 and MPO-ANCA enzyme immunoassays. As many as 5% serumsamples are positive only by EIA. Ref. AM J Clin Ogxxph2049;111:507-513. Performed By: #### L 505.7010, L3300.1200, L3100.5450, L4600.0100 ####[facility] [address] [place], [place], [address] CCP IgG Antibodieson 024 CCP IgG Ab. 6 units Normal 0-19 [facility] Comment on above: Result Comment: Nega tive <20 Weak positive 20 - 39 Moderate positive 40 - 59 Strong positive >59Performed at: [facility] [address] [id number] Director: Chance Morales PhD, Phone: [phone] Performed By: #### L 505.7010, L3300.1200, L3100.5450, L4600.0100 ####[facility] [address] [place], [address] Discharge Instructionon Discharge Instruction Normal [facility] Rheumatoid Factoron 03-04-20 24 RHEUMATOID FAC 25.0 IU/mL High <15 [facility] Comment on above: Performed By: #### L 505.7010, L3300.1200, L3100.5450, L4600.0100 ####[facility] [address] [place], [address] CBC W/Diff, Automatedon Absolute Lymph 1.46 X10 3/uL Normal 0.83-4.51 [facility] Comment on above: Performed By: #### L 501.9520, L100.0100 ####[facility] [address] [place], [address] Absolute Neut 5.9 X10 3/uL Normal 2.0-7.7 [facility] Comment on above: Performed By: #### L 501.9520, L100.0100 ####[facility] [address] [place], [address] Basophils/100 WBC (Bld) 0.6 % Normal 0-[address] [facility] Comment on above: Performed By: #### L 501.9520, L100.0100 ####[facility] [address] [place], [address] Eosinophils/100 WBC (Bld) 2.9 % Normal 0-5 [facility] Comment on above: Performed By: #### L 501.9520, L100.0100 ####[facility] [address] [place], [address] Erythrocyte distribution width (RBC) [Ratio] 17.6 % High 11.6-14.6 [facility] Comment on above: Performed By: #### L 501.9520, L100.0100 ####[facility] [address] [place], [address] Hematocrit (Bld) [Volume fraction] 31.2 % Low 40-54 [facility] Comment on above: Performed By: #### L 501.9520, L100.0100 ####[facility] [address] [place], [address] Hemoglobin (Bld) [Mass/Vol] 9.0 g/dL Low 13.0-16.5 [facility] Comment on above: Performed By: #### L 501.9520, L100.0100 ####[facility] [address] [place], [address] IG% 0.400 Normal 0.0-0.9 [facility] Comment on above: Result Comment: IG% - Immature Granulocytes (promyelocytes, myelocytes andmetamyelocytes) > 1% indicates that a LEFT SHIFT is Present. Performed By: #### L 501.95, L100.0100 ####[facility] [address] [place], [address] Lymphocytes/100 WBC (Bld) 17.2 % Low 19-41 [facility] Comment on above: Performed By: #### L 501.9519, L100.0100 ####[facility] [address] [place], [address] MCH (RBC) [Entitic mass] 21.9 pg Low 27.0-32.0 [facility] Comment on above: Performed By: #### L 501.95, L100.0100 ####[facility] [address] [place], [address] MCHC (RBC) [Mass/Vol] 28.8 g/dL Low 32-36 [facility] Comment on above: Performed By: #### L 501.9520, L100.0100 ####[facility] [address] [place], [address] MCV (RBC) [Entitic vol] 75.9 fL Low 80-[address] [facility] Comment on above: Performed By: #### L 501.20, L100.0100 ####[facility] [address] [place], [address] Monocytes/100 WBC (Bld) 9.3 % Normal 0-10 [facility] Comment on above: Performed By: #### L 501.9519, L100.0100 ####[facility] [address] [place], [address] Neutrophils/100 WBC (Bld) 69.6 % Normal 47-70 [facility] Comment on above: Performed By: #### L 501.9519, L100.0100 ####[facility] [address] [place], [address] Nucleated RBC (Bld) [#/Vol] 0 10*3/uL Normal 0-5 [facility] Comment on above: Performed By: #### L 501.9519, L100.0100 ####[facility] [address] [place], [address] Platelet mean volume (Bld) [Entitic vol] 9.8 fL Normal 6.2-12.0 [facility] Comment on above: Performed By: #### L 501.9519, L100.0100 ####[facility] [address] [place], [address] Platelets (Bld) [#/Vol] 227 10*3/uL Normal 150-450 [facility] Comment on above: Performed By: #### L 501.9519, L100.0100 ####[facility] [address] [place], [address] RBC (Bld) [#/Vol] 4.11 10*6/uL Low 4.6-6.2 [facility] Comment on above: Performed By: #### L 501.9520, L100.0100 ####[facility] [address] [place], [address] RDW SD 47.8 fl High 35.1-43.9 [facility] Comment on above: Performed By: #### L 501.9520, L100.0100 ####[facility] [address] [place], [address] WBC (Bld) [#/Vol] 8.5 10*3/uL Normal 4.4-11.0 [facility] Comment on above: Performed By: #### L 501.9520, L100.0100 ####[facility] [address] 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, [address] Thyroid Stim Hormone (TSH)on 03-03-2024 TSH 1.390 uIU/mL Normal 0.358-3.74 0 [facility] Comment on above: Performed By: #### L 501.9520, L100.0100 ####[facility] [address] [place], [address] 12 Lead EKGon 03-02-2024 12 Lead EKG Normal [facility] BNP,B-Type NATRIURETIC PEPTI Sindy 03-02-2024 Natriuretic peptide B (Bld) [Mass/Vol] 48.5 pg/mL Normal 0-100 [facility] Comment on above: Performed By: #### L 100.0100, L500.2500, L503.6620, L501.4020 ####[facility] [address] [place], [address] Basic Metabolic Profile (BMP )on 03-02-2024 BUN/CRE 23.3 RATIO High 10-20 [facility] Comment on above: Order Comment: 'TROP ' Serial specimen #1, #2 or #3: 1 Performed By: #### L 100.0100, L500.2500, L503.6620, L501.4020 ####[facility] [address] [place], [address] CA,Total 9.0 mg/dL Normal 8.5-10.1 [facility] Comment on above: Order Comment: 'TROP ' Serial specimen #1, #2 or #3: 1 Performed By: #### L 100.0100, L500.2500, L503.6620, L501.4020 ####[facility] [address] [place], [address] Chloride [Moles/Vol] 107 mmol/L Normal 98-107 [facility] Comment on above: Order Comment: 'TROP ' Serial specimen #1, #2 or #3: 1 Performed By: #### L 100.0100, L500.2500, L503.6620, L501.4020 ####[facility] [address] [place], [address] CO2 [Moles/Vol] 24.0 mmol/L Normal 21.0-32.0 [facility] Comment on above: Order Comment: 'TROP ' Serial specimen #1, #2 or #3: 1 Performed By: #### L 100.0100, L500.2500, L503.6620, L501.4020 ####[facility] [address] [place], [address] Creatinine [Mass/Vol] 1.03 mg/dL Normal 0.70-1.30 [facility] Comment on above: Order Comment: 'TROP ' Serial specimen #1, #2 or #3: 1 Result Comment: The validity of the calculated GFR GFRAA in patients over70 years has not been determined. Clinical correlation isessential. Performed By: #### L 100.0100, L500.2500, L503.6620, L501.4020 ####[facility] [address] [place], [address] ECRCL 107.77 ml/min Normal [facility] Comment on above: Order Comment: 'TROP ' Serial specimen #1, #2 or #3: 1 Performed By: #### L 100.0100, L500.2500, L503.6620, L501.4020 ####[facility] [address] [place], [address] EST GFR - AA 95 mL/min Normal >60 [facility] Comment on above: Order Comment: 'TROP ' Serial specimen #1, #2 or #3: 1 Result Comment: Afri can [place] Citizen GFR Calc Performed By: #### L 100.0100, L500.2500, L503.6620, L501.4020 ####[facility] [address] [place], [address] GAP 6 Normal 5-15 [facility] Comment on above: Order Comment: 'TROP ' Serial specimen #1, #2 or #3: 1 Performed By: #### L 100.0100, L500.2500, L503.6620, L501.4020 ####[facility] [address] [place], [address] GFR/1.73 sq M.predicted among non-blacks MDRD (S/P/Bld) [Vol rate/Area] 78 mL/min/{1.73_m2} Normal >60 [facility] Comment on above: Order Comment: 'TROP ' Serial specimen #1, #2 or #3: 1 Result Comment: Non- GFR Calc Performed By: #### L 100.0100, L500.2500, L503.6620, L501.4020 ####[facility] [address] [place], [address] Glucose [Mass/Vol] 220 mg/dL High 74-106 [facility] Comment on above: Order Comment: 'TROP ' Serial specimen #1, #2 or #3: 1 Result Comment: Gluc ose result greater than or equal to 200 mg/dLsuggests DIABETES MELLITUS per A.D.A. criteria. Performed By: #### L 100.0100, L500.2500, L503.6620, L501.4020 ####[facility] [address] [place], [address] Potassium [Moles/Vol] 4.0 mmol/L Normal 3.5-5.1 [facility] Comment on above: Order Comment: 'TROP ' Serial specimen #1, #2 or #3: 1 Performed By: #### L 100.0100, L500.2500, L503.6620, L501.4020 ####[facility] [address] [place], [address] Sodium [Moles/Vol] 136 mmol/L Normal 136-145 [facility] Comment on above: Order Comment: 'TROP ' Serial specimen #1, #2 or #3: 1 Performed By: #### L 100.0100, L500.2500, L503.6620, L501.4020 ####[facility] [address] [place], [address] Urea nitrogen [Mass/Vol] 24 mg/dL High 7-18 [facility] Comment on above: Order Comment: 'TROP ' Serial specimen #1, #2 or #3: 1 Performed By: #### L 100.0100, L500.2500, L503.6620, L501.4020 ####[facility] [address] [place], [address] CBC W/Diff, Automatedon 12-0 Absolute Lymph 1.30 X10 3/uL Normal 0.83-4.51 [facility] Comment on above: Performed By: #### L 100.0100, L500.2500, L503.6620, L501.4020 ####[facility] [address] [place], [address] Absolute Neut 6.6 X10 3/uL Normal 2.0-7.7 [facility] Comment on above: Performed By: #### L 100.0100, L500.2500, L503.6620, L501.4020 ####[facility] [address] [place], [address] Basophils/100 WBC (Bld) 0.6 % Normal 0-[address] [facility] Comment on above: Performed By: #### L 100.0100, L500.2500, L503.6620, L501.4020 ####[facility] [address] [place], [address] Eosinophils/100 WBC (Bld) 2.4 % Normal 0-5 [facility] Comment on above: Performed By: #### L 100.0100, L500.2500, L503.6620, L501.4020 ####[facility] [address] [place], [address] Erythrocyte distribution width (RBC) [Ratio] 17.9 % High 11.6-14.6 [facility] Comment on above: Performed By: #### L 100.0100, L500.2500, L503.6620, L501.4020 ####[facility] [address] [place], [address] Hematocrit (Bld) [Volume fraction] 32.1 % Low 40-54 [facility] Comment on above: Performed By: #### L 100.0100, L500.2500, L503.6620, L501.4020 ####[facility] [address] [place], [address] Hemoglobin (Bld) [Mass/Vol] 9.3 g/dL Low 13.0-16.5 [facility] Comment on above: Performed By: #### L 100.0100, L500.2500, L503.6620, L501.4020 ####[facility] [address] [place], [address] IG% 0.400 Normal 0.0-0.9 [facility] Comment on above: Result Comment: IG% - Immature Granulocytes (promyelocytes, myelocytes andmetamyelocytes) > 1% indicates that a LEFT SHIFT is Present. Performed By: #### L 100.0100, L500.2500, L503.6620, L501.4020 ####[facility] [address] [place], [address] Lymphocytes/100 WBC (Bld) 14.4 % Low 19-41 [facility] Comment on above: Performed By: #### L 100.0100, L500.2500, L503.6620, L501.4020 ####[facility] [address] [place], [address] MCH (RBC) [Entitic mass] 22.2 pg Low 27.0-32.0 [facility] Comment on above: Performed By: #### L 100.0100, L500.2500, L503.6620, L501.4020 ####[facility] [address] [place], [address] MCHC (RBC) [Mass/Vol] 29.0 g/dL Low 32-36 [facility] Comment on above: Performed By: #### L 100.0100, L500.2500, L503.6620, L501.4020 ####[facility] [address] [place], [address] MCV (RBC) [Entitic vol] 76.6 fL Low 80-[address] [facility] Comment on above: Performed By: #### L 100.0100, L500.2500, L503.6620, L501.4020 ####[facility] [address] [place], [address] Monocytes/100 WBC (Bld) 8.3 % Normal 0-[address] [facility] Comment on above: Performed By: #### L 100.0100, L500.2500, L503.6620, L501.4020 ####[facility] [address] [place], [address] Neutrophils/100 WBC (Bld) 73.9 % High 47-70 [facility] Comment on above: Performed By: #### L 100.0100, L500.2500, L503.6620, L501.4020 ####[facility] [address] [place], [address] Nucleated RBC (Bld) [#/Vol] 0 10*3/uL Normal 0-5 [facility] Comment on above: Performed By: #### L 100.0100, L500.2500, L503.6620, L501.4020 ####[facility] [address] [place], [address] Platelet mean volume (Bld) [Entitic vol] 10.6 fL Normal 6.2-12.0 [facility] Comment on above: Performed By: #### L 100.0100, L500.2500, L503.6620, L501.4020 ####[facility] [address] [place], [address] Platelets (Bld) [#/Vol] 242 10*3/uL Normal 150-450 [facility] Comment on above: Performed By: #### L 100.0100, L500.2500, L503.6620, L501.4020 ####[facility] [address] [place], [address] RBC (Bld) [#/Vol] 4.19 10*6/uL Low 4.6-6.2 [facility] Comment on above: Performed By: #### L 100.0100, L500.2500, L503.6620, L501.4020 ####[facility] [address] [place], [address] RDW SD 49.2 fl High 35.1-43.9 [facility] Comment on above: Performed By: #### L 100.0100, L500.2500, L503.6620, L501.4020 ####[facility] [address] [place], [address] WBC (Bld) [#/Vol] 9.0 10*3/uL Normal 4.4-11.0 [facility] Comment on above: Performed By: #### L 100.0100, L500.2500, L503.6620, L501.4020 ####[facility] [address] [place], [address] Chest PA and Lateralon 03-02 Chest PA and Lateral Normal [facility] Echo Complete W/ Contraston 03-02-2024 Echo Complete W/ Contrast Normal [facility] Emergency Department Summary on 03-02-2024 Emergency Department Summary Normal [facility] H AND P Exam - Hospitaliston 03-02-2024 H&P Exam - Hospitalist Normal [facility] L501.4020on 03-02-2024 TROPONIN-I HS 35 pg/mL Normal 3.0-78.0 [facility] Comment on above: Order Comment: 'TROP ' Serial specimen #1, #2 or #3: 1 Result Comment: Plea se Note: New Test Units and Gender Specific Reference Ranges. For more information see Policy Stat Procedure [place] High Sensitivity Troponin (TNIH) and attachments. Performed By: #### L 100.0100, L500.2500, L503.6620, L501.4020 ####[facility] [address] [place], [address] M100.678on 03-02-2024 M100.678 Pending SARS-CoV-2 (COVID 19) Negative INFLUENZA A Negative INFLUENZA B Negative RSV PCR Negative Normal [facility] Comment on above: Performed By: #### M 100.678 ####[facility] [address] [place], [address] Basic Metabolic Profile (BMP )on 02-26-2024 BUN/CRE 20.5 RATIO High 10-20 [facility] Comment on above: Order Comment: 'TROP ' Serial specimen #1, #2 or #3: 1 Performed By: #### L 501.5200, L501.4020, L500.2500, L100.0100 ####[facility] [address] [place], [address] CA,Total 9.0 mg/dL Normal 8.5-10.1 [facility] Comment on above: Order Comment: 'TROP ' Serial specimen #1, #2 or #3: 1 Performed By: #### L 501.5200, L501.4020, L500.2500, L100.0100 ####[facility] [address] [place], [address] Chloride [Moles/Vol] 109 mmol/L High 98-107 [facility] Comment on above: Order Comment: 'TROP ' Serial specimen #1, #2 or #3: 1 Performed By: #### L 501.5200, L501.4020, L500.2500, L100.0100 ####[facility] [address] [place], [address] CO2 [Moles/Vol] 22.0 mmol/L Normal 21.0-32.0 [facility] Comment on above: Order Comment: 'TROP ' Serial specimen #1, #2 or #3: 1 Performed By: #### L 501.5200, L501.4020, L500.2500, L100.0100 ####[facility] [address] [place], [address] Creatinine [Mass/Vol] 1.32 mg/dL High 0.70-1.30 [facility] Comment on above: Order Comment: 'TROP ' Serial specimen #1, #2 or #3: 1 Result Comment: The validity of the calculated GFR GFRAA in patients over70 years has not been determined. Clinical correlation isessential. Performed By: #### L 501.5200, L501.4020, L500.2500, L100.0100 ####[facility] [address] [place], [address] ECRCL 83.89 ml/min Normal [facility] Comment on above: Order Comment: 'TROP ' Serial specimen #1, #2 or #3: 1 Performed By: #### L 501.5200, L501.4020, L500.2500, L100.0100 ####[facility] [address] [place], [address] EST GFR - AA 71 mL/min Normal >60 [facility] Comment on above: Order Comment: 'TROP ' Serial specimen #1, #2 or #3: 1 Result Comment: Afri can [place] Citizen GFR Calc Performed By: #### L 501.5200, L501.4020, L500.2500, L100.0100 ####[facility] [address] [place], [address] GAP 7 Normal 5-15 [facility] Comment on above: Order Comment: 'TROP ' Serial specimen #1, #2 or #3: 1 Performed By: #### L 501.5200, L501.4020, L500.2500, L100.0100 ####[facility] [address] [place], [address] GFR/1.73 sq M.predicted among non-blacks MDRD (S/P/Bld) [Vol rate/Area] 59 mL/min/{1.73_m2} Low >60 [facility] Comment on above: Order Comment: 'TROP ' Serial specimen #1, #2 or #3: 1 Result Comment: Non- GFR Calc Performed By: #### L 501.5200, L501.4020, L500.2500, L100.0100 ####[facility] [address] [place], [address] Glucose [Mass/Vol] 193 mg/dL High 74-106 [facility] Comment on above: Order Comment: 'TROP ' Serial specimen #1, #2 or #3: 1 Result Comment: Fast ing Glucose result greater than or equal to 126 mg/dLsuggests DIABETES MELLITUS per A.D.A. criteria. Performed By: #### L 501.5200, L501.4020, L500.2500, L100.0100 ####[facility] [address] [place], [address] Potassium [Moles/Vol] 4.0 mmol/L Normal 3.5-5.1 [facility] Comment on above: Order Comment: 'TROP ' Serial specimen #1, #2 or #3: 1 Performed By: #### L 501.5200, L501.4020, L500.2500, L100.0100 ####[facility] [address] [place], [address] Sodium [Moles/Vol] 138 mmol/L Normal 136-145 [facility] Comment on above: Order Comment: 'TROP ' Serial specimen #1, #2 or #3: 1 Performed By: #### L 501.5200, L501.4020, L500.2500, L100.0100 ####[facility] [address] [place], [address] Urea nitrogen [Mass/Vol] 27 mg/dL High 7-18 [facility] Comment on above: Order Comment: 'TROP ' Serial specimen #1, #2 or #3: 1 Performed By: #### L 501.5200, L501.4020, L500.2500, L100.0100 ####[facility] [address] [place], [address] CBC W/Diff, Automatedon - Absolute Lymph 1.36 X10 3/uL Normal 0.83-4.51 [facility] Comment on above: Performed By: #### L 501.5200, L501.4020, L500.2500, L100.0100 ####[facility] [address] [place], [address] Absolute Neut 6.7 X10 3/uL Normal 2.0-7.7 [facility] Comment on above: Performed By: #### L 501.5200, L501.4020, L500.2500, L100.0100 ####[facility] [address] [place], [address] Basophils/100 WBC (Bld) 0.9 % Normal 0-[address] [facility] Comment on above: Performed By: #### L 501.5200, L501.4020, L500.2500, L100.0100 ####[facility] [address] [place], [address] Eosinophils/100 WBC (Bld) 2.1 % Normal 0-5 [facility] Comment on above: Performed By: #### L 501.5200, L501.4020, L500.2500, L100.0100 ####[facility] [address] [place], [address] Erythrocyte distribution width (RBC) [Ratio] 18.2 % High 11.6-14.6 [facility] Comment on above: Performed By: #### L 501.5200, L501.4020, L500.2500, L100.0100 ####[facility] [address] [place], [address] Hematocrit (Bld) [Volume fraction] 34.4 % Low 40-54 [facility] Comment on above: Performed By: #### L 501.5200, L501.4020, L500.2500, L100.0100 ####[facility] [address] [place], [address] Hemoglobin (Bld) [Mass/Vol] 10.2 g/dL Low 13.0-16.5 [facility] Comment on above: Performed By: #### L 501.5200, L501.4020, L500.2500, L100.0100 ####[facility] [address] [place], [address] IG% 0.400 Normal 0.0-0.9 [facility] Comment on above: Result Comment: IG% - Immature Granulocytes (promyelocytes, myelocytes andmetamyelocytes) > 1% indicates that a LEFT SHIFT is Present. Performed By: #### L 501.5200, L501.4020, L500.2500, L100.0100 ####[facility] [address] [place], [address] Lymphocytes/100 WBC (Bld) 14.5 % Low 19-41 [facility] Comment on above: Performed By: #### L 501.5200, L501.4020, L500.2500, L100.0100 ####[facility] [address] [place], [address] MCH (RBC) [Entitic mass] 22.7 pg Low 27.0-32.0 [facility] Comment on above: Performed By: #### L 501.5200, L501.4020, L500.2500, L100.0100 ####[facility] [address] [place], [address] MCHC (RBC) [Mass/Vol] 29.7 g/dL Low 32-36 [facility] Comment on above: Performed By: #### L 501.5200, L501.4020, L500.2500, L100.0100 ####[facility] [address] [place], [address] MCV (RBC) [Entitic vol] 76.6 fL Low 80-[address] [facility] Comment on above: Performed By: #### L 501.5200, L501.4020, L500.2500, L100.0100 ####[facility] [address] [place], [address] Monocytes/100 WBC (Bld) 10.1 % High 0-[address] [facility] Comment on above: Performed By: #### L 501.5200, L501.4020, L500.2500, L100.0100 ####[facility] [address] [place], [address] Neutrophils/100 WBC (Bld) 72.0 % High 47-70 [facility] Comment on above: Performed By: #### L 501.5200, L501.4020, L500.2500, L100.0100 ####[facility] [address] [place], [address] Nucleated RBC (Bld) [#/Vol] 0 10*3/uL Normal 0-5 [facility] Comment on above: Performed By: #### L 501.5200, L501.4020, L500.2500, L100.0100 ####[facility] [address] [place], [address] Platelet mean volume (Bld) [Entitic vol] 10.1 fL Normal 6.2-12.0 [facility] Comment on above: Performed By: #### L 501.5200, L501.4020, L500.2500, L100.0100 ####[facility] [address] [place], [address] Platelets (Bld) [#/Vol] 254 10*3/uL Normal 150-450 [facility] Comment on above: Performed By: #### L 501.5200, L501.4020, L500.2500, L100.0100 ####[facility] [address] [place], [address] RBC (Bld) [#/Vol] 4.49 10*6/uL Low 4.6-6.2 [facility] Comment on above: Performed By: #### L 501.5200, L501.4020, L500.2500, L100.0100 ####[facility] [address] [place], [address] RDW SD 49.1 fl High 35.1-43.9 [facility] Comment on above: Performed By: #### L 501.5200, L501.4020, L500.2500, L100.0100 ####[facility] [address] [place], [address] WBC (Bld) [#/Vol] 9.4 10*3/uL Normal 4.4-11.0 [facility] Comment on above: Performed By: #### L 501.5200, L501.4020, L500.2500, L100.0100 ####[facility] [address] [place], [address] Chest 1 View (Portable)on Chest 1 View (Portable) Normal [facility] D-Dimer Quantitative (DVT/PE )on 02-26-2024 D-DIMER QUANT 0.44 FEU/ug/m Normal 0.27-0.49 [facility] Comment on above: Result Comment: NORM AL D-Dimer level (<0.50) indicates no DVT or PE. Performed By: #### L 300.8000 ####[facility] [address] [place], [address] Emergency Department Summary on 02-26-2024 Emergency Department Summary Normal [facility] L501.4020on 02-26-2024 TROPONIN-I HS 443 pg/mL Invalid Interpretation Code 3.0-78.0 [facility] Comment on above: Order Comment: 'TROP ' Serial specimen #1, #2 or #3: 2 Result Comment: Crit ical Result(s) Called at: 13:36:54 02/26/2024 by: CINDI Estevez. Results read back by same. Please Note: New Test Units and Gender Specific Reference Ranges. For more information see Policy Stat Procedure [place] High Sensitivity Troponin (TNIH) and attachments. Performed By: #### L 501.4020 ####[facility] [address] [place], [place], [address] TROPONIN-I HS 358 pg/mL Invalid Interpretation Code 3.0-78.0 [facility] Comment on above: Order Comment: 'TROP ' Serial specimen #1, #2 or #3: 1 Result Comment: Crit ical Result(s) Called at: 11:46:25 02/26/2024 by: CINDI to Kayla Vazquez. Results read back by same. Please Note: New Test Units and Gender Specific Reference Ranges. For more information see Policy Stat Procedure [place] High Sensitivity Troponin (TNIH) and attachments. Performed By: #### L 501.5200, L501.4020, L500.2500, L100.0100 ####[facility] [address] [place], [address] Magnesiumon 02-26-2024 Magnesium [Mass/Vol] 2.3 mg/dL Normal 1.6-2.6 [facility] Comment on above: Order Comment: 'TROP ' Serial specimen #1, #2 or #3: 1 Performed By: #### L 501.5200, L501.4020, L500.2500, L100.0100 ####[facility] [address] [place], [address] Office Visit Reporton 2023 Office Visit Report Normal [facility] Neurology Visit Reporton Neurology Visit Report Normal [facility] 36on 02-12-2024 36 Notes and imaging [...] will determine when to resume Eliquis. Normal [facility] 36 This patient left a voicemail returning a call regarding his test results with Dr. Hutton Please advise :) Normal [facility] Gastroenterology Visit Repor ton 02-07-2024 Gastroenterology Visit Report Normal [facility] 36on 02-06-2024 36 Name of caller: Harpreet damon Contact phone number: [phone] Relationship to Patient: care team amanda Provider: Jose Antonio Practice: Endovascular Chief Complaint/Reason for Call: please send all lab work from September to fax [phone] [facility] Best time of day caller can be reached: any Patient advised that office/PCP has 24-48 business hours to return their call: No Normal [facility] CT HEAD NECK ANGIO W AND WO [...] carotid artery stenosis, Ischemic cerebrovascular accident Normal [facility] Thyroidon 02-06-2024 Thyroid Normal [facility] Progress Noteon 02-05-2024 Progress Note 02/05/24 Pt was seen today for CT Head/Neck w & wo contrast @ [facility] Pt had multiple attempts for IV placement from 2 different techs, with no success. Patient did inform us that he is a very hard stick and normally US is needed. Reached out to oncology for assistance but were extremely busy. Pt was advised to call central scheduling to reschedule at either [facility] or [facility] as they have US. He was initially scheduled at [facility]. The office was contacted on 02/05/24 to relay the information on the outcome of today's CT exam. Christine at the office was given this information. Normal [facility] Oncology Visit Reporton Oncology Visit Report Normal [facility] Basic Metabolic Profile (BMP )on 01-22-2024 BUN/CRE 25.4 RATIO High 10-20 [facility] Comment on above: Performed By: #### L 500.2500, L100.0100 ####[facility] [address] [place], [address] CA,Total 8.9 mg/dL Normal 8.5-10.1 [facility] Comment on above: Performed By: #### L 500.2500, L100.0100 ####[facility] [address] [place], [address] Chloride [Moles/Vol] 105 mmol/L Normal 98-107 [facility] Comment on above: Performed By: #### L 500.2500, L100.0100 ####[facility] [address] [place], [address] CO2 [Moles/Vol] 24.0 mmol/L Normal 21.0-32.0 [facility] Comment on above: Performed By: #### L 500.2500, L100.0100 ####[facility] [address] [place], [address] Creatinine [Mass/Vol] 1.22 mg/dL Normal 0.70-1.30 [facility] Comment on above: Result Comment: The validity of the calculated GFR GFRAA in patients over70 years has not been determined. Clinical correlation isessential. Performed By: #### L 500.2500, L100.0100 ####[facility] [address] [place], [address] ECRCL 91.97 ml/min Normal [facility] Comment on above: Performed By: #### L 500.2500, L100.0100 ####[facility] [address] [place], [address] EST GFR - AA 78 mL/min Normal >60 [facility] Comment on above: Result Comment: Afri can [place] Citizen GFR Calc Performed By: #### L 500.2500, L100.0100 ####[facility] [address] [place], [address] GAP 7 Normal 5-15 [facility] Comment on above: Performed By: #### L 500.2500, L100.0100 ####[facility] [address] [place], [address] GFR/1.73 sq M.predicted among non-blacks MDRD (S/P/Bld) [Vol rate/Area] 64 mL/min/{1.73_m2} Normal >60 [facility] Comment on above: Result Comment: Non- GFR Calc Performed By: #### L 500.2500, L100.0100 ####[facility] [address] [place], [address] Glucose [Mass/Vol] 196 mg/dL High 74-106 [facility] Comment on above: Result Comment: Fast ing Glucose result greater than or equal to 126 mg/dLsuggests DIABETES MELLITUS per A.D.A. criteria. Performed By: #### L 500.2500, L100.0100 ####[facility] [address] [place], [address] Potassium [Moles/Vol] 4.1 mmol/L Normal 3.5-5.1 [facility] Comment on above: Performed By: #### L 500.2500, L100.0100 ####[facility] [address] [place], [address] Sodium [Moles/Vol] 136 mmol/L Normal 136-145 [facility] Comment on above: Performed By: #### L 500.2500, L100.0100 ####[facility] [address] [place], [address] Urea nitrogen [Mass/Vol] 31 mg/dL High 7-18 [facility] Comment on above: Performed By: #### L 500.2500, L100.0100 ####[facility] [address] [place], [address] Bedside Glucoseon 01-21-2023 FINGERSTICK GLU 224 mg/dL High 74-106 [facility] Comment on above: Result Comment: ANI GEMENT OF PATIENT CARE PER NURSING PROTOCOL Performed By: #### L 501.080 ####[facility] [address] [place], [address] FINGERSTICK GLU 177 mg/dL High 74-106 [facility] Comment on above: Result Comment: ANI GEMENT OF PATIENT CARE PER NURSING PROTOCOL Performed By: #### L 501.080 ####[facility] [address] [place], [address] CBC W/Diff, Automatedon 10-2 Absolute Lymph 2.23 X10 3/uL Normal 0.83-4.51 [facility] Comment on above: Performed By: #### L 500.2500, L100.0100 ####[facility] [address] [place], [address] Absolute Neut 6.5 X10 3/uL Normal 2.0-7.7 [facility] Comment on above: Performed By: #### L 500.2500, L100.0100 ####[facility] [address] [place], [address] Basophils/100 WBC (Bld) 0.6 % Normal 0-[address] [facility] Comment on above: Performed By: #### L 500.2500, L100.0100 ####[facility] [address] [place], [address] Eosinophils/100 WBC (Bld) 3.8 % Normal 0-5 [facility] Comment on above: Performed By: #### L 500.2500, L100.0100 ####[facility] [address] [place], [address] Erythrocyte distribution width (RBC) [Ratio] 17.5 % High 11.6-14.6 [facility] Comment on above: Performed By: #### L 500.2500, L100.0100 ####[facility] [address] [place], [address] Hematocrit (Bld) [Volume fraction] 30.9 % Low 40-54 [facility] Comment on above: Performed By: #### L 500.2500, L100.0100 ####[facility] [address] [place], [address] Hemoglobin (Bld) [Mass/Vol] 9.3 g/dL Low 13.0-16.5 [facility] Comment on above: Performed By: #### L 500.2500, L100.0100 ####[facility] [address] [place], [address] IG% 0.500 Normal 0.0-0.9 [facility] Comment on above: Result Comment: IG% - Immature Granulocytes (promyelocytes, myelocytes andmetamyelocytes) > 1% indicates that a LEFT SHIFT is Present. Performed By: #### L 500.2500, L100.0100 ####[facility] [address] [place], [address] Lymphocytes/100 WBC (Bld) 21.7 % Normal 19-41 [facility] Comment on above: Performed By: #### L 500.2500, L100.0100 ####[facility] [address] [place], [address] MCH (RBC) [Entitic mass] 23.4 pg Low 27.0-32.0 [facility] Comment on above: Performed By: #### L 500.2500, L100.0100 ####[facility] [address] [place], [address] MCHC (RBC) [Mass/Vol] 30.1 g/dL Low 32-36 [facility] Comment on above: Performed By: #### L 500.2500, L100.0100 ####[facility] [address] [place], [address] MCV (RBC) [Entitic vol] 77.6 fL Low 80-[address] [facility] Comment on above: Performed By: #### L 500.2500, L100.0100 ####[facility] [address] [place], [address] Monocytes/100 WBC (Bld) 10.7 % High 0-[address] [facility] Comment on above: Performed By: #### L 500.2500, L100.0100 ####[facility] [address] [place], [address] Neutrophils/100 WBC (Bld) 62.7 % Normal 47-70 [facility] Comment on above: Performed By: #### L 500.2500, L100.0100 ####[facility] [address] [place], [address] Nucleated RBC (Bld) [#/Vol] 0 10*3/uL Normal 0-5 [facility] Comment on above: Performed By: #### L 500.2500, L100.0100 ####[facility] [address] [place], [address] Platelet mean volume (Bld) [Entitic vol] 9.8 fL Normal 6.2-12.0 [facility] Comment on above: Performed By: #### L 500.2500, L100.0100 ####[facility] [address] [place], [address] Platelets (Bld) [#/Vol] 273 10*3/uL Normal 150-450 [facility] Comment on above: Performed By: #### L 500.2500, L100.0100 ####[facility] [address] [place], [address] RBC (Bld) [#/Vol] 3.98 10*6/uL Low 4.6-6.2 [facility] Comment on above: Performed By: #### L 500.2500, L100.0100 ####[facility] [address] [place], [address] RDW SD 49.5 fl High 35.1-43.9 [facility] Comment on above: Performed By: #### L 500.2500, L100.0100 ####[facility] [address] [place], [address] WBC (Bld) [#/Vol] 10.3 10*3/uL Normal 4.4-11.0 [facility] Comment on above: Performed By: #### L 500.2500, L100.0100 ####[facility] [address] [place], [address] 36on 01-21-2024 36 Patient called to in form me he is in the hospital and will not be able to make his radiology appointment tomorrow. I told patient I will call and cancel for him and gave him the number to call and reschedule when he is ready. Normal [facility] Bedside Glucoseon 01-21-2024 FINGERSTICK GLU 136 mg/dL High 74-106 [facility] Comment on above: Result Comment: ANI GEMENT OF PATIENT CARE PER NURSING PROTOCOL Performed By: #### L 501.080 ####[facility] [address] [facility] [address] FINGERSTICK GLU 151 mg/dL High 74-106 [facility] Comment on above: Result Comment: ANI GEMENT OF PATIENT CARE PER NURSING PROTOCOL Performed By: #### L 501.080 ####[facility] [address] [facility] [address] FINGERSTICK GLU 152 mg/dL High 74-106 [facility] Comment on above: Result Comment: ANI GEMENT OF PATIENT CARE PER NURSING PROTOCOL Performed By: #### L 501.080 ####[facility] [address] [facility] [address] FINGERSTICK GLU 126 mg/dL High 74-106 [facility] Comment on above: Result Comment: ANI GEMENT OF PATIENT CARE PER NURSING PROTOCOL Performed By: #### L 501.080 ####[facility] [address] [facility] [address] CTA Chest W/WO Contraston CTA Chest W/WO Contrast Normal [facility] D-Dimer Quantitative (DVT/PE )on 01-21-2024 D-DIMER QUANT 2.48 FEU/ug/m Invalid Interpretation Code 0.27-0.49 [facility] Comment on above: Result Comment: D-Di tania ELEVATED (>0.49): Additional studies and clinicalassessments are indicated to conclude diagnosis of:Deep Vein Thrombosis (DVT) or Pulmonary Embolism (PE)CRITICAL VALUE CALLED TO BRRYIM29/22/24 0323 Hipolito Mitchell.RESULTS READ BACK BY SAME. Performed By: #### L 300.8000 ####[facility] [address] [place], [address] Emergency Department Summary on 01-21-2024 Emergency Department Summary Normal [facility] Ferritinon 01-21-2024 Ferritin [Mass/Vol] 53 ng/mL Normal 26-388 [facility] Comment on above: Performed By: #### L 503.6030, L503.6497 ####[facility] [address] [place], [address] H AND P Exam - Hospitaliston 01-21-2024 H&P Exam - Hospitalist Normal [facility] Hemoglobin A1con 01-21-2024 HbA1c (Bld) [Mass fraction] 8.0 % High 3.8-5.6 [facility] Comment on above: Result Comment: Norm al < 5.7 % Prediabetic 5.7 - 6.4 % Diabetic >or= 6.5 % Please note range changes. Performed By: #### L 5019938 ####[facility] [address] [place], [address] Iron+Iron Binding Capacityon 01-21-2024 Iron [Mass/Vol] 12 ug/dL Low 65-175 [facility] Comment on above: Performed By: #### L 503.6003, L503.0650 ####[facility] [address] [place], [address] IRON SATURATION 3.5 Low 15.0-55.0 [facility] Comment on above: Performed By: #### L 503.6013, L503.7450 ####[facility] [address] [place], [address] TIBC 347 ug/dL Normal 250-450 [facility] Comment on above: Performed By: #### L 503.6054, L503.2550 ####[facility] [address] [place], [address] Lactic Acidon 10-22-2024 Lactate [Moles/Vol] 1.6 mmol/L Normal 0.4-1.9 [facility] Comment on above: Order Comment: Y Performed By: #### L 503.6005 ####[facility] [address] [place], [address] Legionella Antigen Urineon 1 LEGU Normal [facility] Comment on above: Performed By: #### M 300.4600, M300.4500 ####[facility] [address] [place], [address] RESPIRATORY PANEL MOLECULARo n 01-21-2024 RP PANEL Normal [facility] Comment on above: Performed By: #### M 100.638 ####[facility] [address] [place], [address] Strep pneumoniae Antig(UR,CS F)on 01-21-2024 STPAG Normal [facility] Comment on above: Performed By: #### M 300.4600, M300.4500 ####[facility] [address] [place], [address] Venous Duplex US - Adam Extre mon 01-21-2024 Venous Duplex US - Adam Extrem Normal [facility] 12 Lead EKGon 01-20-2024 12 Lead EKG Normal [facility] BNP,B-Type NATRIURETIC PEPTI Sindy 01-20-2024 Natriuretic peptide B (Bld) [Mass/Vol] 130.8 pg/mL High 0-100 [facility] Comment on above: Performed By: #### L 501.5200, L503.6620 ####[facility] [address] [place], [address] Basic Metabolic Profile (BMP )on 01-20-2024 BUN/CRE 23.4 RATIO High 10-20 [facility] Comment on above: Order Comment: 'TROP ' Serial specimen #1, #2 or #3: 1 Performed By: #### L 501.4020, L500.2500, L100.0100 ####[facility] [address] [place], [address] CA,Total 9.0 mg/dL Normal 8.5-10.1 [facility] Comment on above: Order Comment: 'TROP ' Serial specimen #1, #2 or #3: 1 Performed By: #### L 501.4020, L500.2500, L100.0100 ####[facility] [address] [place], [address] Chloride [Moles/Vol] 107 mmol/L Normal 98-107 [facility] Comment on above: Order Comment: 'TROP ' Serial specimen #1, #2 or #3: 1 Performed By: #### L 501.4020, L500.2500, L100.0100 ####[facility] [address] [place], [address] CO2 [Moles/Vol] 22.0 mmol/L Normal 21.0-32.0 [facility] Comment on above: Order Comment: 'TROP ' Serial specimen #1, #2 or #3: 1 Performed By: #### L 501.4020, L500.2500, L100.0100 ####[facility] [address] [place], [address] Creatinine [Mass/Vol] 1.24 mg/dL Normal 0.70-1.30 [facility] Comment on above: Order Comment: 'TROP ' Serial specimen #1, #2 or #3: 1 Result Comment: The validity of the calculated GFR GFRAA in patients over70 years has not been determined. Clinical correlation isessential. Performed By: #### L 501.4020, L500.2500, L100.0100 ####[facility] [address] [place], [address] ECRCL 90.85 ml/min Normal [facility] Comment on above: Order Comment: 'TROP ' Serial specimen #1, #2 or #3: 1 Performed By: #### L 501.4020, L500.2500, L100.0100 ####[facility] [address] [place], [address] EST GFR - AA 76 mL/min Normal >60 [facility] Comment on above: Order Comment: 'TROP ' Serial specimen #1, #2 or #3: 1 Result Comment: Afri can [place] Citizen GFR Calc Performed By: #### L 501.4020, L500.2500, L100.0100 ####[facility] [address] [place], [address] GAP 6 Normal 5-15 [facility] Comment on above: Order Comment: 'TROP ' Serial specimen #1, #2 or #3: 1 Performed By: #### L 501.4020, L500.2500, L100.0100 ####[facility] [address] [place], [address] GFR/1.73 sq M.predicted among non-blacks MDRD (S/P/Bld) [Vol rate/Area] 63 mL/min/{1.73_m2} Normal >60 [facility] Comment on above: Order Comment: 'TROP ' Serial specimen #1, #2 or #3: 1 Result Comment: Non- GFR Calc Performed By: #### L 501.4020, L500.2500, L100.0100 ####[facility] [address] [place], [address] Glucose [Mass/Vol] 196 mg/dL High 74-106 [facility] Comment on above: Order Comment: 'TROP ' Serial specimen #1, #2 or #3: 1 Result Comment: Fast ing Glucose result greater than or equal to 126 mg/dLsuggests DIABETES MELLITUS per A.D.A. criteria. Performed By: #### L 501.4020, L500.2500, L100.0100 ####[facility] [address] [place], [address] Potassium [Moles/Vol] 4.3 mmol/L Normal 3.5-5.1 [facility] Comment on above: Order Comment: 'TROP ' Serial specimen #1, #2 or #3: 1 Result Comment: Mode rate Hemolysis, Result may be falsely increased. Performed By: #### L 501.4020, L500.2500, L100.0100 ####[facility] [address] [place], [address] Sodium [Moles/Vol] 135 mmol/L Low 136-145 [facility] Comment on above: Order Comment: 'TROP ' Serial specimen #1, #2 or #3: 1 Performed By: #### L 501.4020, L500.2500, L100.0100 ####[facility] [address] [place], [address] Urea nitrogen [Mass/Vol] 29 mg/dL High 7-18 [facility] Comment on above: Order Comment: 'TROP ' Serial specimen #1, #2 or #3: 1 Performed By: #### L 501.4020, L500.2500, L100.0100 ####[facility] [address] [place], [address] CBC W/Diff, Automatedon 10-2 -2023 Absolute Lymph 1.71 X10 3/uL Normal 0.83-4.51 [facility] Comment on above: Performed By: #### L 501.4020, L500.2500, L100.0100 ####[facility] [address] [place], [address] Absolute Neut 7.0 X10 3/uL Normal 2.0-7.7 [facility] Comment on above: Performed By: #### L 501.4020, L500.2500, L100.0100 ####[facility] [address] [place], [address] Basophils/100 WBC (Bld) 0.7 % Normal 0-[address] [facility] Comment on above: Performed By: #### L 501.4020, L500.2500, L100.0100 ####[facility] [address] [place], [address] Eosinophils/100 WBC (Bld) 2.9 % Normal 0-5 [facility] Comment on above: Performed By: #### L 501.4020, L500.2500, L100.0100 ####[facility] [address] [place], [address] Erythrocyte distribution width (RBC) [Ratio] 17.1 % High 11.6-14.6 [facility] Comment on above: Performed By: #### L 501.4020, L500.2500, L100.0100 ####[facility] [address] [place], [address] Hematocrit (Bld) [Volume fraction] 31.1 % Low 40-54 [facility] Comment on above: Performed By: #### L 501.4020, L500.2500, L100.0100 ####[facility] [address] [place], [address] Hemoglobin (Bld) [Mass/Vol] 9.5 g/dL Low 13.0-16.5 [facility] Comment on above: Performed By: #### L 501.4020, L500.2500, L100.0100 ####[facility] [address] [place], [address] IG% 0.500 Normal 0.0-0.9 [facility] Comment on above: Result Comment: IG% - Immature Granulocytes (promyelocytes, myelocytes andmetamyelocytes) > 1% indicates that a LEFT SHIFT is Present. Performed By: #### L 501.4020, L500.2500, L100.0100 ####[facility] [address] [place], [address] Lymphocytes/100 WBC (Bld) 16.8 % Low 19-41 [facility] Comment on above: Performed By: #### L 501.4020, L500.2500, L100.0100 ####[facility] [address] [place], [address] MCH (RBC) [Entitic mass] 23.4 pg Low 27.0-32.0 [facility] Comment on above: Performed By: #### L 501.4020, L500.2500, L100.0100 ####[facility] [address] [place], [address] MCHC (RBC) [Mass/Vol] 30.5 g/dL Low 32-36 [facility] Comment on above: Performed By: #### L 501.4020, L500.2500, L100.0100 ####[facility] [address] [place], [address] MCV (RBC) [Entitic vol] 76.6 fL Low 80-[address] [facility] Comment on above: Performed By: #### L 501.4020, L500.2500, L100.0100 ####[facility] [address] [place], [address] Monocytes/100 WBC (Bld) 10.6 % High 0-[address] [facility] Comment on above: Performed By: #### L 501.4020, L500.2500, L100.0100 ####[facility] [address] [place], [address] Neutrophils/100 WBC (Bld) 68.5 % Normal 47-70 [facility] Comment on above: Performed By: #### L 501.4020, L500.2500, L100.0100 ####[facility] [address] [place], [address] Nucleated RBC (Bld) [#/Vol] 0 10*3/uL Normal 0-5 [facility] Comment on above: Performed By: #### L 501.4020, L500.2500, L100.0100 ####[facility] [address] [place], [address] Platelet mean volume (Bld) [Entitic vol] 9.5 fL Normal 6.2-12.0 [facility] Comment on above: Performed By: #### L 501.4020, L500.2500, L100.0100 ####[facility] [address] [place], [address] Platelets (Bld) [#/Vol] 267 10*3/uL Normal 150-450 [facility] Comment on above: Performed By: #### L 501.4020, L500.2500, L100.0100 ####[facility] [address] [place], [address] RBC (Bld) [#/Vol] 4.06 10*6/uL Low 4.6-6.2 [facility] Comment on above: Performed By: #### L 501.4020, L500.2500, L100.0100 ####[facility] [address] [place], [address] RDW SD 47.4 fl High 35.1-43.9 [facility] Comment on above: Performed By: #### L 501.4020, L500.2500, L100.0100 ####[facility] [address] [place], [address] WBC (Bld) [#/Vol] 10.2 10*3/uL Normal 4.4-11.0 [facility] Comment on above: Performed By: #### L 501.4020, L500.2500, L100.0100 ####[facility] [address] [place], [address] Chest PA and Lateralon 01-19 Chest PA and Lateral Normal [facility] L501.4020on 01-20-2024 TROPONIN-I HS 24 pg/mL Normal 3.0-78.0 [facility] Comment on above: Order Comment: 'TROP ' Serial specimen #1, #2 or #3: 1 Result Comment: Kodi monterroso Note: New Test Units and Gender Specific Reference Ranges. For more information see Policy Stat Procedure [place] High Sensitivity Troponin (TNIH) and attachments. Performed By: #### L 501.4020, L500.2500, L100.0100 ####[facility] [address] [place], [address] M100.678on 01-20-2024 M100.678 Pending SARS-CoV-2 (COVID 19) Negative INFLUENZA A Negative INFLUENZA B Negative RSV PCR Negative Normal [facility] Comment on above: Performed By: #### M 100.678 ####[facility] [address] [place], [address] Magnesiumon 01-20-2024 Magnesium [Mass/Vol] 1.7 mg/dL Normal 1.6-2.6 [facility] Comment on above: Result Comment: Mode rate Hemolysis, Result may be falsely increased. Performed By: #### L 501.5200, L503.6620 ####[facility] [address] [place], [address] Office Visit Reporton 2023 Office Visit Report Normal [facility] 36on 01-15-2024 36 Called patient to in form him of his appointment for CTA ordered by Dr. Culp. Patient verbalized understanding appointment schduled for 01/22/2024 at 1045 [place]. Patient instructed to stop eating 4 hours prior to testing and to drink 16oz water 1 hour prior. Patient questioned if we received imaging from [facility]. Will follow up to confirm they are uploaded to PACS. Normal [facility] 36on 01-10-2024 36 [id number] submitted through [employer] phone call Normal [facility] CBC W/Diff, Automatedon 12-30 Absolute Lymph 1.87 X10 3/uL Normal 0.83-4.51 [facility] Comment on above: Order Comment: Order Date: 01/10/24Order Info: 018- - CBCDOrder Info: 4679-7 - RETIC Performed By: #### L 503.6150, L100.9950, L503.0105, L503.6075, L100.0100, L506.0250, L503.6550 ####[facility] [address] [place], [address] Absolute Neut 5.7 X10 3/uL Normal 2.0-7.7 [facility] Comment on above: Order Comment: Order Date: 01/10/24Order Info: 018- - CBCDOrder Info: 4679-7 - RETIC Performed By: #### L 503.6150, L100.9950, L503.0105, L503.6075, L100.0100, L506.0250, L503.6550 ####[facility] [address] [place], [address] Basophils/100 WBC (Bld) 0.8 % Normal 0-[address] [facility] Comment on above: Order Comment: Order Date: 01/10/24Order Info: 0184- - CBCDOrder Info: 4679-7 - RETIC Performed By: #### L 503.6150, L100.9950, L503.0105, L503.6075, L100.0100, L506.0250, L503.6550 ####[facility] [address] [place], [address] Eosinophils/100 WBC (Bld) 2.6 % Normal 0-5 [facility] Comment on above: Order Comment: Order Date: 01/10/24Order Info: 0184- - CBCDOrder Info: 4679-7 - RETIC Performed By: #### L 503.6150, L100.9950, L503.0105, L503.6075, L100.0100, L506.0250, L503.6550 ####[facility] [address] [place], [address] Erythrocyte distribution width (RBC) [Ratio] 17.3 % High 11.6-14.6 [facility] Comment on above: Order Comment: Order Date: 01/10/24Order Info: 018- - CBCDOrder Info: 4679-7 - RETIC Performed By: #### L 503.6150, L100.9950, L503.0105, L503.6075, L100.0100, L506.0250, L503.6550 ####[facility] [address] [place], [address] Hematocrit (Bld) [Volume fraction] 37.0 % Low 40-54 [facility] Comment on above: Order Comment: Order Date: 01/10/24Order Info: 183-04 - CBCDOrder Info: 4679-7 - RETIC Performed By: #### L 503.6150, L100.9950, L503.0105, L503.6075, L100.0100, L506.0250, L503.6550 ####[facility] [address] [place], [address] Hemoglobin (Bld) [Mass/Vol] 10.7 g/dL Low 13.0-16.5 [facility] Comment on above: Order Comment: Order Date: 01/10/24Order Info: 01806-30 - CBCDOrder Info: 4679-7 - RETIC Performed By: #### L 503.6150, L100.9950, L503.0105, L503.6075, L100.0100, L506.0250, L503.6550 ####[facility] [address] [place], [address] IG% 0.300 Normal 0.0-0.9 [facility] Comment on above: Order Comment: Order Date: 01/10/24Order Info: 018- - CBCDOrder Info: 4679-7 - RETIC Result Comment: IG% - Immature Granulocytes (promyelocytes, myelocytes andmetamyelocytes) > 1% indicates that a LEFT SHIFT is Present. Performed By: #### L 503.6150, L100.9950, L503.0105, L503.6075, L100.0100, L506.0250, L503.6550 ####[facility] [address] [place], [address] Lymphocytes/100 WBC (Bld) 21.4 % Normal 19-41 [facility] Comment on above: Order Comment: Order Date: 01/10/24Order Info: 018- - CBCDOrder Info: 4679-7 - RETIC Performed By: #### L 503.6150, L100.9950, L503.0105, L503.6075, L100.0100, L506.0250, L503.6550 ####[facility] [address] [place], [address] MCH (RBC) [Entitic mass] 22.8 pg Low 27.0-32.0 [facility] Comment on above: Order Comment: Order Date: 01/10/24Order Info: 018- - CBCDOrder Info: 4679-7 - RETIC Performed By: #### L 503.6150, L100.9950, L503.0105, L503.6075, L100.0100, L506.0250, L503.6550 ####[facility] [address] [place], [address] MCHC (RBC) [Mass/Vol] 28.9 g/dL Low 32-36 [facility] Comment on above: Order Comment: Order Date: 01/10/24Order Info: 01806-30 - CBCDOrder Info: 4679-7 - RETIC Performed By: #### L 503.6150, L100.9950, L503.0105, L503.6075, L100.0100, L506.0250, L503.6550 ####[facility] [address] [place], [address] MCV (RBC) [Entitic vol] 78.7 fL Low 80-[address] [facility] Comment on above: Order Comment: Order Date: 01/10/24Order Info: 018- - CBCDOrder Info: 4679-7 - RETIC Performed By: #### L 503.6150, L100.9950, L503.0105, L503.6075, L100.0100, L506.0250, L503.6550 ####[facility] [address] [place], [address] Monocytes/100 WBC (Bld) 9.9 % Normal 0-10 [facility] Comment on above: Order Comment: Order Date: 01/10/24Order Info: [id number] - CBCDOrder Info: 4679-7 - RETIC Performed By: #### L 503.6150, L100.9950, L503.0105, L503.6075, L100.0100, L506.0250, L503.6550 ####[facility] [address] [place], [address] Neutrophils/100 WBC (Bld) 65.0 % Normal 47-70 [facility] Comment on above: Order Comment: Order Date: 01/10/24Order Info: [id number] - CBCDOrder Info: 4679-7 - RETIC Performed By: #### L 503.6150, L100.9950, L503.0105, L503.6075, L100.0100, L506.0250, L503.6550 ####[facility] [facility] [address] [place], [address] Nucleated RBC (Bld) [#/Vol] 0 10*3/uL Normal 0-5 [facility] Comment on above: Order Comment: Order Date: 01/10/24Order Info: [id number] - CBCDOrder Info: 4679-7 - RETIC Performed By: #### L 503.6150, L100.9950, L503.0105, L503.6075, L100.0100, L506.0250, L503.6550 ####[facility] [address] [place], [address] Platelet mean volume (Bld) [Entitic vol] 10.2 fL Normal 6.2-12.0 [facility] Comment on above: Order Comment: Order Date: 01/10/24Order Info: [id number] - CBCDOrder Info: 4679-7 - RETIC Performed By: #### L 503.6150, L100.9950, L503.0105, L503.6075, L100.0100, L506.0250, L503.6550 ####[facility] [address] [place], [address] Platelets (Bld) [#/Vol] 306 10*3/uL Normal 150-450 [facility] Comment on above: Order Comment: Order Date: 01/10/24Order Info: 0184-1 - CBCDOrder Info: 4679-7 - RETIC Performed By: #### L 503.6150, L100.9950, L503.0105, L503.6075, L100.0100, L506.0250, L503.6550 ####[facility] [address] [place], [address] RBC (Bld) [#/Vol] 4.70 10*6/uL Normal 4.6-6.2 [facility] Comment on above: Order Comment: Order Date: 01/10/24Order Info: 0184-1 - CBCDOrder Info: 4679-7 - RETIC Performed By: #### L 503.6150, L100.9950, L503.0105, L503.6075, L100.0100, L506.0250, L503.6550 ####[facility] [address] [place], [address] RDW SD 49.7 fl High 35.1-43.9 [facility] Comment on above: Order Comment: Order Date: 01/10/24Order Info: [id number]- - CBCDOrder Info: 4679-7 - RETIC Performed By: #### L 503.6150, L100.9950, L503.0105, L503.6075, L100.0100, L506.0250, L503.6550 ####[facility] [address] [place], [address] WBC (Bld) [#/Vol] 8.7 10*3/uL Normal 4.4-11.0 [facility] Comment on above: Order Comment: Order Date: 01/10/24Order Info: [id number] - CBCDOrder Info: 4679-7 - RETIC Performed By: #### L 503.6150, L100.9950, L503.0105, L503.6075, L100.0100, L506.0250, L503.6550 ####[facility] [address] [place], [address] Ferritinon 01-10-2024 Ferritin [Mass/Vol] 28 ng/mL Normal 26-388 [facility] Comment on above: Order Comment: Order Date: 01/10/24Order Info: 2499- - TIBCOrder Info: [id number] - FEOrder Info: 2275-4 - FEROrder Info: 228-8 - FOLSN Performed By: #### L 503.6150, L100.9950, L503.0105, L503.6075, L100.0100, L506.0250, L503.6550 ####[facility] [address] [place], [address] Folates, (Folic Acid)on 12-30 FOLATES 5.30 ng/mL Normal 3.1-55.4 [facility] Comment on above: Order Comment: Order Date: 01/10/24Order Info: 2499-09 - TIBCOrder Info: 2497-06 - FEOrder Info: 4 - FEROrder Info: 2283-10 - FOLSN Performed By: #### L 503.6150, L100.9950, L503.0105, L503.6075, L100.0100, L506.0250, L503.6550 ####[facility] [address] [place], [address] Ironon 01-10-2024 Iron [Mass/Vol] 31 ug/dL Low 65-175 [facility] Comment on above: Order Comment: Order Date: 01/10/24Order Info: 2499-7 - TIBCOrder Info: 2497-06 - FEOrder Info: 2275-07 - FEROrder Info: 2283-10 - FOLSN Performed By: #### L 503.6150, L100.9950, L503.0105, L503.6075, L100.0100, L506.0250, L503.6550 ####[facility] [address] [place], [address] Iron Binding Capacity,Totalo n 01-10-2024 TIBC 445 ug/dL Normal 250-450 [facility] Comment on above: Order Comment: Order Date: 01/10/24Order Info: 7 - TIBCOrder Info: 2497-06 - FEOrder Info: 2275-07 - FEROrder Info: 2283-10 - FOLSN Performed By: #### L 503.6150, L100.9950, L503.0105, L503.6075, L100.0100, L506.0250, L503.6550 ####[facility] [address] [place], [address] Retic Panelon 01-10-2024 IM RET FRACTION 26.40 High 3.00-15.90 [facility] Comment on above: Order Comment: Order Date: 01/10/24Order Info: 0184-1 - CBCDOrder Info: 4679-7 - RETIC Performed By: #### L 503.6150, L100.9950, L503.0105, L503.6075, L100.0100, L506.0250, L503.6550 ####[facility] [address] [place], [place], [address] RET-HE 22.0 pg Low 30-35 [facility] Comment on above: Order Comment: Order Date: 01/10/24Order Info: 0184-1 - CBCDOrder Info: 4679-7 - RETIC Performed By: #### L 503.6150, L100.9950, L503.0105, L503.6075, L100.0100, L506.0250, L503.6550 ####[facility] [address] [place], [place], [address] Retic Count 2.36 High 0.5-1.5 [facility] Comment on above: Order Comment: Order Date: 01/10/24Order Info: 0184-1 - CBCDOrder Info: 4679-7 - RETIC Performed By: #### L 503.6150, L100.9950, L503.0105, L503.6075, L100.0100, L506.0250, L503.6550 ####[facility] [address] [place], [place], [address] Vitamin B12on 01-10-2024 Cobalamin (Vitamin B12) [Mass/Vol] 510 pg/mL Normal 211-911 [facility] Comment on above: Order Comment: Order Date: 01/10/24Order Info: 2132-9 - B12 Performed By: #### L 503.6150, L100.9950, L503.0105, L503.6075, L100.0100, L506.0250, L503.6550 ####[facility] [address] [place], [place], [address] Office Visiton 01-06-2024 Follow-up visit [id number] Krunal Leos 1965 M Date Provider Department Center 01/06/2024 OZIEL ROBLEDO [facility] NRO None No family history on file Level of Service:89903 [place] OFFICE/OUTPATIENT ESTABLISHED MOD MDM 30 MIN Reason for Visit and Comments: New Patient [542] - New stroke 10/02, multiple mini strokes since. No current deficits per patient. Normal [facility] Progress Noteon 01-06-2024 Progress Note History of Present Illness: 58 yo man here for fu stroke and bilateral ICA stenosis. He originally presented 09/2023 for left hemiparesis and was transferred to [facility] from [facility]. He was found to have right hemispheric [...] episode of left hemiparesis. He went to [facility] and was found to have increased stroke burden of the right hemisphere. Vascular surgery was consulted and no surgical procedure was recommended. He had a 3rd event of left hemiparesis the following week and a CT was done at [facility]. At that time clopidogrel was added (in addition to ASA and Eliquis). The patient returned to normal and was discharged from the ED to home. 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 He is a nonsmoker. He does [...] 2023., Disp: 30 tablet, Rfl: 0 HYDROcodone-acetaminophen ([place]) 5-325 MG tablet, Take 1 tablet by [...] , Rfl: ergocalciferol (Vitamin D2) 1.25 MG (28921 UT) capsule, Take 1 capsule by mouth [...] Negative. Respirato (more content not included)... Normal [facility] [employer] [facility] Stress Reporton 01-01-2024 Stress Report Normal [facility] Pulmonary Visit Reporton Pulmonary Visit Report Normal [facility] Office Visit Reporton 2023 [facility] Visit Report [facility]B-Type NATRIURETIC PEPTI Sindy 12-12-2023 Natriuretic peptide B (Bld) [Mass/Vol] 92.2 pg/mL Normal 0-100 [facility] Comment on above: Performed By: #### L 500.4050, L501.5200, L100.0100, L503.6620, L506.0400, L501.9520 ####[facility] [address] [place], [address] CBC W/Diff, Automatedon 11-30 2-2023 Absolute Lymph 1.70 X10 3/uL Normal 0.83-4.51 [facility] Comment on above: Performed By: #### L 500.4050, L501.5200, L100.0100, L503.6620, L506.0400, L501.9520 ####[facility] [address] [place], [address] Absolute Neut 5.8 X10 3/uL Normal 2.0-7.7 [facility] Comment on above: Performed By: #### L 500.4050, L501.5200, L100.0100, L503.6620, L506.0400, L501.9520 ####[facility] [address] [place], [address] Basophils/100 WBC (Bld) 0.8 % Normal 0-[address] [facility] Comment on above: Performed By: #### L 500.4050, L501.5200, L100.0100, L503.6620, L506.0400, L501.9520 ####[facility] [address] [place], [address] Eosinophils/100 WBC (Bld) 2.8 % Normal 0-5 [facility] Comment on above: Performed By: #### L 500.4050, L501.5200, L100.0100, L503.6620, L506.0400, L501.9520 ####[facility] [address] [place], [address] Erythrocyte distribution width (RBC) [Ratio] 18.5 % High 11.6-14.6 [facility] Comment on above: Performed By: #### L 500.4050, L501.5200, L100.0100, L503.6620, L506.0400, L501.9520 ####[facility] [address] [place], [address] Hematocrit (Bld) [Volume fraction] 33.3 % Low 40-54 [facility] Comment on above: Performed By: #### L 500.4050, L501.5200, L100.0100, L503.6620, L506.0400, L501.9520 ####[facility] [address] [place], [address] Hemoglobin (Bld) [Mass/Vol] 10.0 g/dL Low 13.0-16.5 [facility] Comment on above: Performed By: #### L 500.4050, L501.5200, L100.0100, L503.6620, L506.0400, L501.9520 ####[facility] [address] [place], [address] IG% 0.500 Normal 0.0-0.9 [facility] Comment on above: Result Comment: IG% - Immature Granulocytes (promyelocytes, myelocytes andmetamyelocytes) > 1% indicates that a LEFT SHIFT is Present. Performed By: #### L 500.4050, L501.5200, L100.0100, L503.6620, L506.0400, L501.9520 ####[facility] [address] [place], [address] Lymphocytes/100 WBC (Bld) 19.6 % Normal 19-41 [facility] Comment on above: Performed By: #### L 500.4050, L501.5200, L100.0100, L503.6620, L506.0400, L501.9520 ####[facility] [address] [place], [address] MCH (RBC) [Entitic mass] 23.9 pg Low 27.0-32.0 [facility] Comment on above: Performed By: #### L 500.4050, L501.5200, L100.0100, L503.6620, L506.0400, L501.9520 ####[facility] [address] [place], [address] MCHC (RBC) [Mass/Vol] 30.0 g/dL Low 32-36 [facility] Comment on above: Performed By: #### L 500.4050, L501.5200, L100.0100, L503.6620, L506.0400, L501.9520 ####[facility] [address] [place], [address] MCV (RBC) [Entitic vol] 79.7 fL Low 80-94 [facility] Comment on above: Performed By: #### L 500.4050, L501.5200, L100.0100, L503.6620, L506.0400, L501.9520 ####[facility] [address] [place], [address] Monocytes/100 WBC (Bld) 9.9 % Normal 0-10 [facility] Comment on above: Performed By: #### L 500.4050, L501.5200, L100.0100, L503.6620, L506.0400, L501.9520 ####[facility] [address] [place], [address] Neutrophils/100 WBC (Bld) 66.4 % Normal 47-70 [facility] Comment on above: Performed By: #### L 500.4050, L501.5200, L100.0100, L503.6620, L506.0400, L501.9520 ####[facility] [address] [place], [address] Nucleated RBC (Bld) [#/Vol] 0 10*3/uL Normal 0-5 [facility] Comment on above: Performed By: #### L 500.4050, L501.5200, L100.0100, L503.6620, L506.0400, L501.9520 ####[facility] [address] [place], [address] Platelet mean volume (Bld) [Entitic vol] 9.9 fL Normal 6.2-12.0 [facility] Comment on above: Performed By: #### L 500.4050, L501.5200, L100.0100, L503.6620, L506.0400, L501.9520 ####[facility] [address] [place], [address] Platelets (Bld) [#/Vol] 274 10*3/uL Normal 150-450 [facility] Comment on above: Performed By: #### L 500.4050, L501.5200, L100.0100, L503.6620, L506.0400, L501.9520 ####[facility] [address] [place], [address] RBC (Bld) [#/Vol] 4.18 10*6/uL Low 4.6-6.2 [facility] Comment on above: Performed By: #### L 500.4050, L501.5200, L100.0100, L503.6620, L506.0400, L501.9520 ####[facility] [address] [place], [address] RDW SD 52.7 fl High 35.1-43.9 [facility] Comment on above: Performed By: #### L 500.4050, L501.5200, L100.0100, L503.6620, L506.0400, L501.9520 ####[facility] [address] [place], [address] WBC (Bld) [#/Vol] 8.7 10*3/uL Normal 4.4-11.0 [facility] Comment on above: Performed By: #### L 500.4050, L501.5200, L100.0100, L503.6620, L506.0400, L501.9520 ####[facility] [address] [place], [address] Comprehensive Metabolic Prof idon 12-12-2023 Albumin [Mass/Vol] 3.2 g/dL Normal 3.2-5.0 [facility] Comment on above: Performed By: #### L 500.4050, L501.5200, L100.0100, L503.6620, L506.0400, L501.9520 ####[facility] [address] [place], [address] Albumin/Globulin [Mass ratio] 0.7 {ratio} Low 0.9-2.4 [facility] Comment on above: Performed By: #### L 500.4050, L501.5200, L100.0100, L503.6620, L506.0400, L501.9520 ####[facility] [address] [place], [address] ALK P 79 U/L Normal 45-117 [facility] Comment on above: Performed By: #### L 500.4050, L501.5200, L100.0100, L503.6620, L506.0400, L501.9520 ####[facility] [address] [place], [address] ALT [Catalytic activity/Vol] 25 U/L Normal 16-61 [facility] Comment on above: Performed By: #### L 500.4050, L501.5200, L100.0100, L503.6620, L506.0400, L501.9520 ####[facility] [address] [place], [address] AST [Catalytic activity/Vol] 27 U/L Normal 15-37 [facility] Comment on above: Performed By: #### L 500.4050, L501.5200, L100.0100, L503.6620, L506.0400, L501.9520 ####[facility] [address] [place], [address] Bilirubin [Mass/Vol] 0.60 mg/dL Normal 0.20-1.00 [facility] Comment on above: Result Comment: For patients on eltrombopag therapy, use of Dimension [place] TBIL is not recommended. Performed By: #### L 500.4050, L501.5200, L100.0100, L503.6620, L506.0400, L501.9520 ####[facility] [address] [place], [address] BUN/CRE 21.7 RATIO High 10-20 [facility] Comment on above: Performed By: #### L 500.4050, L501.5200, L100.0100, L503.6620, L506.0400, L501.9520 ####[facility] [address] [place], [address] CA,Total 9.3 mg/dL Normal 8.5-10.1 [facility] Comment on above: Performed By: #### L 500.4050, L501.5200, L100.0100, L503.6620, L506.0400, L501.9520 ####[facility] [address] [place], [address] Chloride [Moles/Vol] 110 mmol/L High 98-107 [facility] Comment on above: Performed By: #### L 500.4050, L501.5200, L100.0100, L503.6620, L506.0400, L501.9520 ####[facility] [address] [place], [address] CO2 [Moles/Vol] 19.0 mmol/L Low 21.0-32.0 [facility] Comment on above: Performed By: #### L 500.4050, L501.5200, L100.0100, L503.6620, L506.0400, L501.9520 ####[facility] [address] [place], [address] Creatinine [Mass/Vol] 1.20 mg/dL Normal 0.70-1.30 [facility] Comment on above: Result Comment: The validity of the calculated GFR GFRAA in patients over70 years has not been determined. Clinical correlation isessential. Performed By: #### L 500.4050, L501.5200, L100.0100, L503.6620, L506.0400, L501.9520 ####[facility] [address] [place], [address] EST GFR - AA 79 mL/min Normal >60 [facility] Comment on above: Result Comment: Afri can [place] Citizen GFR Calc Performed By: #### L 500.4050, L501.5200, L100.0100, L503.6620, L506.0400, L501.9520 ####[facility] [address] [place], [address] GAP 10 Normal 5-15 [facility] Comment on above: Performed By: #### L 500.4050, L501.5200, L100.0100, L503.6620, L506.0400, L501.9520 ####[facility] [address] [place], [address] GFR/1.73 sq M.predicted among non-blacks MDRD (S/P/Bld) [Vol rate/Area] 66 mL/min/{1.73_m2} Normal >60 [facility] Comment on above: Result Comment: Non- GFR Calc Performed By: #### L 500.4050, L501.5200, L100.0100, L503.6620, L506.0400, L501.9520 ####[facility] [address] [place], [address] Globulin (S) [Mass/Vol] 4.9 g/dL High 2.2-4.2 [facility] Comment on above: Performed By: #### L 500.4050, L501.5200, L100.0100, L503.6620, L506.0400, L501.9520 ####[facility] [address] [place], [address] Glucose [Mass/Vol] 155 mg/dL High 74-106 [facility] Comment on above: Result Comment: Fast ing Glucose result greater than or equal to 126 mg/dLsuggests DIABETES MELLITUS per A.D.A. criteria. Performed By: #### L 500.4050, L501.5200, L100.0100, L503.6620, L506.0400, L501.9520 ####[facility] [address] [place], [address] Potassium [Moles/Vol] 3.9 mmol/L Normal 3.5-5.1 [facility] Comment on above: Performed By: #### L 500.4050, L501.5200, L100.0100, L503.6620, L506.0400, L501.9520 ####[facility] [address] [place], [address] Sodium [Moles/Vol] 139 mmol/L Normal 136-145 [facility] Comment on above: Performed By: #### L 500.4050, L501.5200, L100.0100, L503.6620, L506.0400, L501.9520 ####[facility] [address] [place], [address] T PROT 8.1 g/dL Normal 6.4-8.2 [facility] Comment on above: Performed By: #### L 500.4050, L501.5200, L100.0100, L503.6620, L506.0400, L501.9520 ####[facility] [address] [place], [address] Urea nitrogen [Mass/Vol] 26 mg/dL High 7-18 [facility] Comment on above: Performed By: #### L 500.4050, L501.5200, L100.0100, L503.6620, L506.0400, L501.9520 ####[facility] [address] [place], [address] Gastroenterology Visit Repor ton 12-12-2023 Gastroenterology Visit Report Normal [facility] Magnesiumon 12-12-2023 Magnesium [Mass/Vol] 2.1 mg/dL Normal 1.6-2.6 [facility] Comment on above: Performed By: #### L 500.4050, L501.5200, L100.0100, L503.6620, L506.0400, L501.9520 ####[facility] [address] [place], [address] T4 Free Directon 12-12-2023 T4 FREE DIRECT 1.29 ng/dL Normal 0.76-1.46 [facility] Comment on above: Performed By: #### L 500.4050, L501.5200, L100.0100, L503.6620, L506.0400, L501.9520 ####[facility] [address] [place], [address] Thyroid Stim Hormone (TSH)on 12-12-2023 TSH 0.800 uIU/mL Normal 0.358-3.74 0 [facility] Comment on above: Performed By: #### L 500.4050, L501.5200, L100.0100, L503.6620, L506.0400, L501.9520 ####[facility] [address] [place], [address] MR/BMS.BVSon 12-06-2023 MR/BMS.BVS Normal [facility] Endocrinology Visit Reporton 11-27-2023 Endocrinology Visit Report Normal [facility] Bedside Glucoseon 11-18-2023 FINGERSTICK GLU 103 mg/dL Normal 74-106 [facility] Comment on above: Result Comment: ANI BRADFORD OF PATIENT CARE PER NURSING PROTOCOL Performed By: #### L 501.080 ####[facility] [address] [place], [address] Office Visit Reporton 2023 Office Visit Report Normal [facility] 12 Lead EKGon 11-16-2023 12 Lead EKG Normal [facility] Basic Metabolic Profile (BMP )on 11-16-2023 BUN/CRE 18.2 RATIO Normal 10-20 [facility] Comment on above: Order Comment: 'TROP ' Serial specimen #1, #2 or #3: 1 Performed By: #### L 100.0100, L501.4020, L300.4310, L500.2500, L300.3900 ####[facility] [address] [place], [address] CA,Total 8.7 mg/dL Normal 8.5-10.1 [facility] Comment on above: Order Comment: 'TROP ' Serial specimen #1, #2 or #3: 1 Performed By: #### L 100.0100, L501.4020, L300.4310, L500.2500, L300.3900 ####[facility] [address] [place], [address] Chloride [Moles/Vol] 107 mmol/L Normal 98-107 [facility] Comment on above: Order Comment: 'TROP ' Serial specimen #1, #2 or #3: 1 Performed By: #### L 100.0100, L501.4020, L300.4310, L500.2500, L300.3900 ####[facility] [address] [place], [address] CO2 [Moles/Vol] 27.0 mmol/L Normal 21.0-32.0 [facility] Comment on above: Order Comment: 'TROP ' Serial specimen #1, #2 or #3: 1 Performed By: #### L 100.0100, L501.4020, L300.4310, L500.2500, L300.3900 ####[facility] [address] [place], [address] Creatinine [Mass/Vol] 1.37 mg/dL High 0.70-1.30 [facility] Comment on above: Order Comment: 'TROP ' Serial specimen #1, #2 or #3: 1 Result Comment: The validity of the calculated GFR GFRAA in patients over70 years has not been determined. Clinical correlation isessential. Performed By: #### L 100.0100, L501.4020, L300.4310, L500.2500, L300.3900 ####[facility] [address] [place], [address] ECRCL 81.83 ml/min Normal [facility] Comment on above: Order Comment: 'TROP ' Serial specimen #1, #2 or #3: 1 Performed By: #### L 100.0100, L501.4020, L300.4310, L500.2500, L300.3900 ####[facility] [address] [place], [address] EST GFR - AA 68 mL/min Normal >60 [facility] Comment on above: Order Comment: 'TROP ' Serial specimen #1, #2 or #3: 1 Result Comment: Afri can [place] Citizen GFR Calc Performed By: #### L 100.0100, L501.4020, L300.4310, L500.2500, L300.3900 ####[facility] [address] [place], [address] GAP 6 Normal 5-15 [facility] Comment on above: Order Comment: 'TROP ' Serial specimen #1, #2 or #3: 1 Performed By: #### L 100.0100, L501.4020, L300.4310, L500.2500, L300.3900 ####[facility] [address] [place], [address] GFR/1.73 sq M.predicted among non-blacks MDRD (S/P/Bld) [Vol rate/Area] 56 mL/min/{1.73_m2} Low >60 [facility] Comment on above: Order Comment: 'TROP ' Serial specimen #1, #2 or #3: 1 Result Comment: Non- GFR Calc Performed By: #### L 100.0100, L501.4020, L300.4310, L500.2500, L300.3900 ####[facility] [address] [place], [address] Glucose [Mass/Vol] 116 mg/dL High 74-106 [facility] Comment on above: Order Comment: 'TROP ' Serial specimen #1, #2 or #3: 1 Result Comment: Fast ing Glucose result from 100 to 125 mg/dLsuggests IMPAIRED HOMEOSTASIS per A.D.A. criteria. Performed By: #### L 100.0100, L501.4020, L300.4310, L500.2500, L300.3900 ####[facility] [address] [place], [address] Potassium [Moles/Vol] 3.9 mmol/L Normal 3.5-5.1 [facility] Comment on above: Order Comment: 'TROP ' Serial specimen #1, #2 or #3: 1 Performed By: #### L 100.0100, L501.4020, L300.4310, L500.2500, L300.3900 ####[facility] [address] [place], [address] Sodium [Moles/Vol] 140 mmol/L Normal 136-145 [facility] Comment on above: Order Comment: 'TROP ' Serial specimen #1, #2 or #3: 1 Performed By: #### L 100.0100, L501.4020, L300.4310, L500.2500, L300.3900 ####[facility] [address] [place], [address] Urea nitrogen [Mass/Vol] 25 mg/dL High 7-18 [facility] Comment on above: Order Comment: 'TROP ' Serial specimen #1, #2 or #3: 1 Performed By: #### L 100.0100, L501.4020, L300.4310, L500.2500, L300.3900 ####[facility] [address] [place], [address] CBC W/Diff, Automatedon 10-30 Absolute Lymph 2.30 X10 3/uL Normal 0.83-4.51 [facility] Comment on above: Performed By: #### L 100.0100, L501.4020, L300.4310, L500.2500, L300.3900 ####[facility] [address] [place], [address] Absolute Neut 7.5 X10 3/uL Normal 2.0-7.7 [facility] Comment on above: Performed By: #### L 100.0100, L501.4020, L300.4310, L500.2500, L300.3900 ####[facility] [address] [place], [address] Basophils/100 WBC (Bld) 0.7 % Normal 0-[address] [facility] Comment on above: Performed By: #### L 100.0100, L501.4020, L300.4310, L500.2500, L300.3900 ####[facility] [address] [place], [address] Eosinophils/100 WBC (Bld) 2.8 % Normal 0-5 [facility] Comment on above: Performed By: #### L 100.0100, L501.4020, L300.4310, L500.2500, L300.3900 ####[facility] [address] [place], [address] Erythrocyte distribution width (RBC) [Ratio] 18.7 % High 11.6-14.6 [facility] Comment on above: Performed By: #### L 100.0100, L501.4020, L300.4310, L500.2500, L300.3900 ####[facility] [address] [place], [address] Hematocrit (Bld) [Volume fraction] 37.2 % Low 40-54 [facility] Comment on above: Performed By: #### L 100.0100, L501.4020, L300.4310, L500.2500, L300.3900 ####[facility] [address] [place], [address] Hemoglobin (Bld) [Mass/Vol] 11.3 g/dL Low 13.0-16.5 [facility] Comment on above: Performed By: #### L 100.0100, L501.4020, L300.4310, L500.2500, L300.3900 ####[facility] [address] [place], [address] IG% 1.100 High 0.0-0.9 [facility] Comment on above: Result Comment: IG% - Immature Granulocytes (promyelocytes, myelocytes andmetamyelocytes) > 1% indicates that a LEFT SHIFT is Present. Performed By: #### L 100.0100, L501.4020, L300.4310, L500.2500, L300.3900 ####[facility] [address] [place], [address] Lymphocytes/100 WBC (Bld) 19.9 % Normal 19-41 [facility] Comment on above: Performed By: #### L 100.0100, L501.4020, L300.4310, L500.2500, L300.3900 ####[facility] [address] [place], [address] MCH (RBC) [Entitic mass] 24.0 pg Low 27.0-32.0 [facility] Comment on above: Performed By: #### L 100.0100, L501.4020, L300.4310, L500.2500, L300.3900 ####[facility] [address] [place], [address] MCHC (RBC) [Mass/Vol] 30.4 g/dL Low 32-36 [facility] Comment on above: Performed By: #### L 100.0100, L501.4020, L300.4310, L500.2500, L300.3900 ####[facility] [address] [place], [address] MCV (RBC) [Entitic vol] 79.0 fL Low 80-94 [facility] Comment on above: Performed By: #### L 100.0100, L501.4020, L300.4310, L500.2500, L300.3900 ####[facility] [address] [place], [address] Monocytes/100 WBC (Bld) 10.6 % High 0-[address] [facility] Comment on above: Performed By: #### L 100.0100, L501.4020, L300.4310, L500.2500, L300.3900 ####[facility] [address] [place], [address] Neutrophils/100 WBC (Bld) 64.9 % Normal 47-70 [facility] Comment on above: Performed By: #### L 100.0100, L501.4020, L300.4310, L500.2500, L300.3900 ####[facility] [address] [place], [address] Nucleated RBC (Bld) [#/Vol] 0 10*3/uL Normal 0-5 [facility] Comment on above: Performed By: #### L 100.0100, L501.4020, L300.4310, L500.2500, L300.3900 ####[facility] [address] [place], [address] Platelet mean volume (Bld) [Entitic vol] 9.3 fL Normal 6.2-12.0 [facility] Comment on above: Performed By: #### L 100.0100, L501.4020, L300.4310, L500.2500, L300.3900 ####[facility] [address] [place], [address] Platelets (Bld) [#/Vol] 259 10*3/uL Normal 150-450 [facility] Comment on above: Performed By: #### L 100.0100, L501.4020, L300.4310, L500.2500, L300.3900 ####[facility] [address] [place], [address] RBC (Bld) [#/Vol] 4.71 10*6/uL Normal 4.6-6.2 [facility] Comment on above: Performed By: #### L 100.0100, L501.4020, L300.4310, L500.2500, L300.3900 ####[facility] [address] [place], [address] RDW SD 53.2 fl High 35.1-43.9 [facility] Comment on above: Performed By: #### L 100.0100, L501.4020, L300.4310, L500.2500, L300.3900 ####[facility] [address] [place], [address] WBC (Bld) [#/Vol] 11.6 10*3/uL High 4.4-11.0 [facility] Comment on above: Performed By: #### L 100.0100, L501.4020, L300.4310, L500.2500, L300.3900 ####[facility] [address] [place], [address] Chest 1 Viewon 11-16-2023 Chest 1 View Normal [facility] Emergency Department Summary on 11-16-2023 Emergency Department Summary Normal [facility] L501.4020on 11-16-2023 TROPONIN-I HS 16 pg/mL Normal 3.0-78.0 [facility] Comment on above: Order Comment: 'TROP ' Serial specimen #1, #2 or #3: 1 Result Comment: Plea se Note: New Test Units and Gender Specific Reference Ranges. For more information see Policy Stat Procedure [place] High Sensitivity Troponin (TNIH) and attachments. Performed By: #### L 100.0100, L501.4020, L300.4310, L500.2500, L300.3900 ####[facility] [address] [place], [address] Partial Thromboplast Timeon 11-16-2023 aPTT Coag (Bld) [Time] 28.5 s Normal 24.1-36.2 [facility] Comment on above: Performed By: #### L 100.0100, L501.4020, L300.4310, L500.2500, L300.3900 ####[facility] [address] [place], [address] Prothrombin Time w/INRon INR Coag (PPP) [Relative time] 1.2 {INR} Normal [facility] Comment on above: Performed By: #### L 100.0100, L501.4020, L300.4310, L500.2500, L300.3900 ####[facility] [address] [place], [address] PT Coag (PPP) [Time] 15.6 s High 11.7-14.9 [facility] Comment on above: Performed By: #### L 100.0100, L501.4020, L300.4310, L500.2500, L300.3900 ####[facility] [address] [place], [address] STROKE Brain/Head without Co nton 11-16-2023 STROKE Brain/Head without Cont Normal [facility] STROKE CTA Head AND Neck W/C onon 11-16-2023 STROKE CTA Head AND Neck W/Con Normal [facility] Alcohol, Blood (Medical)-Ser umon 11-14-2023 SERUM ETOH < 3.0 Normal [facility] Comment on above: Result Comment: The serum:whole blood ethanol ratio is approximately 1.14and varies slightly with hematocrit.Medical Alcohol reference interval and critical value innon-tolerant individuals; 50 - 100 Impairment 100 Intoxication 100 - 250 Severe Poisoning 250 - 400 Deep/possible fatal coma Performed By: #### L 501.9520, L501.9985, L506.0250, L501.9100 ####[facility] [address] [place], [address] Bedside Glucoseon 11-14-2023 FINGERSTICK GLU 126 mg/dL High 74-106 [facility] Comment on above: Result Comment: ANI GEMENT OF PATIENT CARE PER NURSING PROTOCOL Performed By: #### L 501.080 ####[facility] [address] [place], [address] FINGERSTICK GLU 91 mg/dL Normal 74-106 [facility] Comment on above: Result Comment: ANI GEMENT OF PATIENT CARE PER NURSING PROTOCOL Performed By: #### L 501.080 ####[facility] [address] [place], [address] FINGERSTICK GLU 143 mg/dL High 74-106 [facility] Comment on above: Result Comment: ANI BRADFORD OF PATIENT CARE PER NURSING PROTOCOL Performed By: #### L 501.080 ####[facility] [address] [place], [place], [address] Brain without Contraston Brain without Contrast Normal [facility] Carotid Duplex Ultrasoundon 11-14-2023 Carotid Duplex Ultrasound Normal [facility] Consultation - Surgicalon Consultation - Surgical Normal [facility] Discharge Instructionon 10-30 Discharge Instruction Normal [facility] Folates, (Folic Acid)on 10-30 FOLATES 5.80 ng/mL Normal 3.1-55.4 [facility] Comment on above: Order Comment: Has P atient had X-rays with Contrast this admission? NN Performed By: #### L 501.9520, L501.9985, L506.0250, L501.9100 ####[facility] [address] [place], [address] Hemoglobin A1con 11-14-2023 HbA1c (Bld) [Mass fraction] 7.8 % High 3.8-5.6 [facility] Comment on above: Result Comment: Norm al < 5.7 % Prediabetic 5.7 - 6.4 % Diabetic >or= 6.5 % Please note range changes. Performed By: #### L 501.9520, L501.9985, L506.0250, L501.9100 ####[facility] [address] [place], [address] Lipid Profileon 11-14-2023 Cholesterol [Mass/Vol] 125 mg/dL Normal 200 [facility] Comment on above: Order Comment: Comme nts: NPO at [place] prior to lipid panel Result Comment: <200 mg/dL Desirable 200-240 mg/dL Borderline >240 mg/dL High Risk Performed By: #### L 500.2460 ####[facility] [address] [place], [address] Cholesterol in HDL [Mass/Vol] 41 mg/dL Normal [facility] Comment on above: Order Comment: Comme nts: NPO at [place] prior to lipid panel Result Comment: The drugs N-Acetylcysteine and Metamizole may falselydepress this assay. Reference Range HDL <40 mg/dL Low HDL Cholesterol HDL >or= 60 mg/dL High HDL Cholesterol Performed By: #### L 500.4100 ####[facility] [address] [place], [address] Cholesterol in LDL [Mass/Vol] 56 mg/dL Normal 0-130 [facility] Comment on above: Order Comment: Comme nts: NPO at [place] prior to lipid panel Performed By: #### L 500.4100 ####[facility] [address] [place], [address] Cholesterol in VLDL [Mass/Vol] 28 mg/dL Normal 5-40 [facility] Comment on above: Order Comment: Comme nts: NPO at [place] prior to lipid panel Performed By: #### L 500.4100 ####[facility] [address] [place], [address] Triglyceride [Mass/Vol] 140 mg/dL Normal [facility] Comment on above: Order Comment: Comme nts: NPO at [place] prior to lipid panel Result Comment: The drugs N-Acetylcysteine and Metamizole may falselydepress this assay.Serum Triglycerides Reference Interval Normal <150 mg/dL Borderline high 150 - 199 mg/dL High 200 - 499 mg/dL Very High > or = 500 mg/dL Performed By: #### L 500.4100 ####[facility] [address] [place], [address] MR/CON.PCM.NEon 11-14-2023 MR/CON.PCM.NE Normal [facility] Thyroid Stim Hormone (TSH)on 11-14-2023 TSH 3.910 uIU/mL High 0.358-3.74 0 [facility] Comment on above: Order Comment: Has P dany had X-rays with Contrast this admission? NN Performed By: #### L 501.9520, L501.9985, L506.0250, L501.9100 ####[facility] [address] [place], [address] Vitamin B12on 11-14-2023 Cobalamin (Vitamin B12) [Mass/Vol] 340 pg/mL Normal 211-911 [facility] Comment on above: Performed By: #### L 503.0105 ####[facility] [address] [place], [address] Basic Metabolic Profile (BMP )on 11-13-2023 BUN/CRE 21.8 RATIO High 10-20 [facility] Comment on above: Order Comment: 'TROP ' Serial specimen #1, #2 or #3: 1 Performed By: #### L 500.2500, L300.3900, L100.0100, L501.4020 ####[facility] [address] [place], [address] CA,Total 8.6 mg/dL Normal 8.5-10.1 [facility] Comment on above: Order Comment: 'TROP ' Serial specimen #1, #2 or #3: 1 Performed By: #### L 500.2500, L300.3900, L100.0100, L501.4020 ####[facility] [address] [place], [address] Chloride [Moles/Vol] 103 mmol/L Normal 98-107 [facility] Comment on above: Order Comment: 'TROP ' Serial specimen #1, #2 or #3: 1 Performed By: #### L 500.2500, L300.3900, L100.0100, L501.4020 ####[facility] [address] [place], [address] CO2 [Moles/Vol] 22.0 mmol/L Normal 21.0-32.0 [facility] Comment on above: Order Comment: 'TROP ' Serial specimen #1, #2 or #3: 1 Performed By: #### L 500.2500, L300.3900, L100.0100, L501.4020 ####[facility] [address] [place], [address] Creatinine [Mass/Vol] 1.56 mg/dL High 0.70-1.30 [facility] Comment on above: Order Comment: 'TROP ' Serial specimen #1, #2 or #3: 1 Result Comment: The validity of the calculated GFR GFRAA in patients over70 years has not been determined. Clinical correlation isessential. Performed By: #### L 500.2500, L300.3900, L100.0100, L501.4020 ####[facility] [address] [place], [address] ECRCL 72.64 ml/min Normal [facility] Comment on above: Order Comment: 'TROP ' Serial specimen #1, #2 or #3: 1 Performed By: #### L 500.2500, L300.3900, L100.0100, L501.4020 ####[facility] [address] [place], [address] EST GFR - AA 59 mL/min Low >60 [facility] Comment on above: Order Comment: 'TROP ' Serial specimen #1, #2 or #3: 1 Result Comment: Afri can [place] Citizen GFR Calc Performed By: #### L 500.2500, L300.3900, L100.0100, L501.4020 ####[facility] [address] [place], [address] GAP 8 Normal 5-15 [facility] Comment on above: Order Comment: 'TROP ' Serial specimen #1, #2 or #3: 1 Performed By: #### L 500.2500, L300.3900, L100.0100, L501.4020 ####[facility] [address] [place], [address] GFR/1.73 sq M.predicted among non-blacks MDRD (S/P/Bld) [Vol rate/Area] 49 mL/min/{1.73_m2} Low >60 [facility] Comment on above: Order Comment: 'TROP ' Serial specimen #1, #2 or #3: 1 Result Comment: Non- GFR Calc Performed By: #### L 500.2500, L300.3900, L100.0100, L501.4020 ####[facility] [address] [place], [address] Glucose [Mass/Vol] 258 mg/dL High 74-106 [facility] Comment on above: Order Comment: 'TROP ' Serial specimen #1, #2 or #3: 1 Result Comment: Gluc ose result greater than or equal to 200 mg/dLsuggests DIABETES MELLITUS per A.D.A. criteria. Performed By: #### L 500.2500, L300.3900, L100.0100, L501.4020 ####[facility] [address] [place], [address] Potassium [Moles/Vol] 4.9 mmol/L Normal 3.5-5.1 [facility] Comment on above: Order Comment: 'TROP ' Serial specimen #1, #2 or #3: 1 Performed By: #### L 500.2500, L300.3900, L100.0100, L501.4020 ####[facility] [address] [place], [address] Sodium [Moles/Vol] 133 mmol/L Low 136-145 [facility] Comment on above: Order Comment: 'TROP ' Serial specimen #1, #2 or #3: 1 Performed By: #### L 500.2500, L300.3900, L100.0100, L501.4020 ####[facility] [address] [place], [address] Urea nitrogen [Mass/Vol] 34 mg/dL High 7-18 [facility] Comment on above: Order Comment: 'TROP ' Serial specimen #1, #2 or #3: 1 Performed By: #### L 500.2500, L300.3900, L100.0100, L501.4020 ####[facility] [address] [place], [address] Bedside Glucoseon 11-13-2023 FINGERSTICK GLU 256 mg/dL High 74-106 [facility] Comment on above: Result Comment: ANI BRADFORD OF PATIENT CARE PER NURSING PROTOCOL Performed By: #### L 501.080 ####[facility] [address] [place], [address] CBC W/Diff, Automatedon 10-30 SMEAR COMMENT SCANNED Normal [facility] Comment on above: Performed By: #### L 500.2500, L300.3900, L100.0100, L501.4020 ####[facility] [address] [place], [address] CTA Head AND Neck W/ Contras ton 11-13-2023 CTA Head AND Neck W/ Contrast Normal [facility] Chest PA and Lateralon 11-12 Chest PA and Lateral Normal [facility] Emergency Department Summary on 11-13-2023 Emergency Department Summary Normal [facility] H AND P Exam - Hospitaliston 11-13-2023 H&P Exam - Hospitalist Normal [facility] L501.4020on 11-13-2023 TROPONIN-I HS 13 pg/mL Normal 3.0-78.0 [facility] Comment on above: Order Comment: 'TROP ' Serial specimen #1, #2 or #3: 1 Result Comment: Kodi monterroso Note: New Test Units and Gender Specific Reference Ranges. For more information see Policy Stat Procedure [place] High Sensitivity Troponin (TNIH) and attachments. Performed By: #### L 500.2500, L300.3900, L100.0100, L501.4020 ####[facility] [address] [place], [address] Partial Thromboplast Timeon 11-13-2023 aPTT Coag (Bld) [Time] 27.8 s Normal 24.1-36.2 [facility] Comment on above: Order Comment: REDRA W. PREVIOUS SPECIMEN REJECTED DUE TOCLOTTED SPECIMEN. 11/13/232051. Performed By: #### L 300.4310, L300.3900 ####[facility] [address] [place], [address] Prothrombin Time w/INRon INR Coag (PPP) [Relative time] 1.2 {INR} Normal [facility] Comment on above: Order Comment: REDRA W. PREVIOUS SPECIMEN REJECTED DUE TOCLOTTED SPECIMEN. 11/13/232051. Performed By: #### L 300.4310, L300.3900 ####[facility] [address] [place], [address] PT Coag (PPP) [Time] 14.8 s Normal 11.7-14.9 [facility] Comment on above: Order Comment: REDRA W. PREVIOUS SPECIMEN REJECTED DUE TOCLOTTED SPECIMEN. 11/13/232051. Performed By: #### L 300.4310, L300.3900 ####[facility] [address] [place], [address] INR Normal [facility] Comment on above: Result Comment: This specimen has been REJECTED due to Laboratory criteria:Clotted.ED-EITAN has been notified of need of recollection.11/13/232050 Kandice Escobedo Performed By: #### L 500.2500, L300.3900, L100.0100, L501.4020 ####[facility] [address] [place], [address] PROTIME Normal 11.7-14.9 [facility] Comment on above: Result Comment: This specimen has been REJECTED due to Laboratory criteria:Clotted.ED-EITAN has been notified of need of recollection.11/13/232050 Kandice Escobedo Performed By: #### L 500.2500, L300.3900, L100.0100, L501.4020 ####[facility] [address] [place], [address] Bedside Glucoseon 11-04-2023 FINGERSTICK GLU 170 mg/dL High 74-106 [facility] Comment on above: Result Comment: ANI BRADFORD OF PATIENT CARE PER NURSING PROTOCOL Performed By: #### L 501.080 ####[facility] [address] [place], [address] Fluor Guidance for Spine Inj on 11-04-2023 Fluor Guidance for Spine Inj Normal [facility] MR/POSTOP.ANEon 11-04-2023 MR/POSTOP.ANE Normal [facility] MR/ETOBFQNY6wu 11-04-2023 MR/POSTOPAN2 Normal [facility] Operative Reporton Operative Report Normal [facility] 6 Minute Walk Teston 024 6 Minute Walk Test Normal [facility] 36on 10-17-2023 36 Per [place], patient h as been placed in recall Normal [facility] Cardiology Visit Reporton Cardiology Visit Report Normal [facility] AWAIS + Protein Elect, Serumon 10-16-2023 Albumin [Mass/Vol] 3.6 g/dL Normal 2.9-4.4 [facility] Comment on above: Order Comment: N Performed By: #### L 3600.4030, L3827.6075 ####[facility] [address] [place], [address] Albumin/Globulin [Mass ratio] 0.9 {ratio} Normal 0.7-1.7 [facility] Comment on above: Order Comment: N Performed By: #### L 3600.4030, L3100.3425 ####[facility] [address] [place], [address] YRRRX-9-LBZO 0.3 g/dL Normal 0.0-0.4 [facility] Comment on above: Order Comment: N Performed By: #### L 3600.4030, L3100.3425 ####[facility] [address] [place], [address] YEEQP-0-AOFP 1.0 g/dL Normal 0.4-1.0 [facility] Comment on above: Order Comment: N Performed By: #### L 3600.4030, L3100.3425 ####[facility] [address] [place], [address] BETA GLOBULIN 1.2 g/dL Normal 0.7-1.3 [facility] Comment on above: Order Comment: N Performed By: #### L 3600.4030, L3100.3425 ####[facility] [address] [place], [address] GAMMA GLOBULIN 2.0 g/dL High 0.4-1.8 [facility] Comment on above: Order Comment: N Performed By: #### L 3600.4030, L3100.3425 ####[facility] [address] [place], [address] Globulin (S) [Mass/Vol] 4.5 g/dL Abnormal 2.2-3.[address] [facility] Comment on above: Order Comment: N Performed By: #### L 3600.4030, L3100.3425 ####[facility] [address] [place], [address] AWAIS RESULT,S Comment Normal . [facility] Comment on above: Order Comment: N Result Comment: No m onoclonality detected. Performed By: #### L 3600.4030, L3100.3425 ####[facility] [address] [place], [address] IMMUNOGLOB A QN 304 mg/dL Normal 90-386 [facility] Comment on above: Order Comment: N Performed By: #### L 3600.4030, L3100.3425 ####[facility] [address] [place], [address] IMMUNOGLOB G QN 1968 mg/dL High 603-1613 [facility] Comment on above: Order Comment: N Performed By: #### L 3600.4030, L3100.3425 ####[facility] [address] [place], [address] IMMUNOGLOB M QN 209 mg/dL High 20-172 [facility] Comment on above: Order Comment: N Performed By: #### L 3600.4030, L3100.3425 ####[facility] [address] [place], [address] M-Aaron Not Observed Normal Not Observed [facility] Comment on above: Order Comment: N Performed By: #### L 3600.4030, L3100.3425 ####[facility] [address] [place], [address] NOTE: Comment Normal . [facility] Comment on above: Order Comment: N Result Comment: Prot ein electrophoresis scan will follow via computer,mail, or site promotion agent delivery. Performed By: #### L 3600.4030, L3100.3425 ####[facility] [address] [place], [address] Protein [Mass/Vol] 8.1 g/dL Normal 6.0-8.5 [facility] Comment on above: Order Comment: N Performed By: #### L 3600.4030, L3100.3425 ####[facility] [address] [place], [address] Immunofixation Urineon 10-15 AWAIS Urine Comment Normal . [facility] Comment on above: Order Comment: N Result Comment: No m onoclonality detected.Performed at: [address] [id number] Director: Chance Morales PhD, Phone: [phone] Performed By: #### L 3600.4030, L3939.3424 ####[facility] [address] [place], [place], [address] 36on 10-15-2023 36 [place] -- per Dr. Arnel sierra's 10/04/23 consult note, patient is to have a repeat of his carotid US in 6 months for close surveillance; can you please place patient in recall as well as an order for a CU for April 2024? Normal [facility] Neurology Visit Reporton Neurology Visit Report Normal [facility] MR/BMS.BVSon 10-08-2023 MR/BMS.BVS Normal [facility] [place] Lambda Light Chainson 10-06-2023 FR KAPPA LT CHN 79.0 mg/L Abnormal 3.3-19.4 [facility] Comment on above: Order Comment: Test( s) 336783-Mhi. B1, Whole Bloodwas developed and its performance characteristicsdetermined by [employer]. It has not been cleared or approvedby the Food and Drug Administration. Performed By: #### L 506.0250, L3300.8000, L500.4100, L501.4700, L503.0105, L3130.0010 ####[facility] [address] [place], [address] FR LAMBDA LT CH 46.8 mg/L Abnormal 5.7-26.3 [facility] Comment on above: Order Comment: Test( s) 610339-Ttu. B1, Whole Bloodwas developed and its performance characteristicsdetermined by [employer]. It has not been cleared or approvedby the Food and Drug Administration. Performed By: #### L 506.0250, L3300.8000, L500.4100, L501.4700, L503.0105, L3130.0010 ####[facility] [address] [place], [place], [address] KAPPA/LAMBDA % 1.69 Abnormal 0.26-1.65 [facility] Comment on above: Order Comment: Test( s) 729921-Tbr. B1, Whole Bloodwas developed and its performance characteristicsdetermined by [facility]. It has not been cleared or approvedby the Food and Drug Administration. Performed By: #### L 506.0250, L3300.8000, L500.4100, L501.4700, L503.0105, L3130.0010 ####[facility] [address] [facility] [place], [address] Vitamin B1, Thiamineon 10-05 VIT B1 THIAMINE 128.1 nmol/L Normal 66.5-200.0 [facility] Comment on above: Order Comment: Test( s) 887356-Qtd. B1, Whole Bloodwas developed and its performance characteristicsdetermined by [facility]. It has not been cleared or approvedby the Food and Drug Administration. Result Comment: Perf ormed at: [facility] [address] [id number] Director: Chance Morales PhD, Phone: [phone] at: [address] [id number] Director: Rhina Norris MD, Phone: [phone] Performed By: #### L 506.0250, L3300.8000, L500.4100, L501.4700, L503.0105, L3130.0010 ####[facility] [address] [place], [address] CBC (HEMOGRAM)on 10-05-2023 Erythrocyte distribution width (RBC) [Ratio] 17.7 % High 11.5-15.0 [facility] Comment on above: Performed By: #### L AB294 ####Security Software Engineer: RADHA SIMMONS ([id number])[address] Hematocrit (Bld) [Volume fraction] 36.7 % Low 40.0-52.0 [facility] Comment on above: Performed By: #### L AB294 ####Security Software Engineer: RADHA SIMMONS ([id number])[facility])[address] [place] [address] Hemoglobin (Bld) [Mass/Vol] 11.3 g/dL Low 13.0-18.0 [facility] Comment on above: Performed By: #### L [id number] ####Security Software Engineer: RADHA SIMMONS ([id number])[facility])[address] [place] [address] MCH (RBC) [Entitic mass] 23.3 pg Low 26.0-34.0 [facility] Comment on above: Performed By: #### L AB294 ####Security Software Engineer: RADHA SIMMONS ([id number])[facility])[address] [place] [address] MCHC 30.8 % Normal 30.5-36.0 [facility] Comment on above: Performed By: #### L [id number] ####Security Software Engineer: RADHA SIMMONS ([id number])[facility])[address] [place] [address] MCV (RBC) [Entitic vol] 75.7 fL Low 77.0-99.0 [facility] Comment on above: Performed By: #### L AB294 ####Security Software Engineer: RADHA SIMMONS ([id number])[facility])[address] [place] [address] Platelet mean volume (Bld) [Entitic vol] 10.1 fL Normal 9.0-12.7 [facility] Comment on above: Performed By: #### L AB294 ####Security Software Engineer: RADHA SIMMONS ([id number])[facility])[address] [place] [address] Platelets (Bld) [#/Vol] 221 10*3/uL Normal 140-440 [facility] Comment on above: Performed By: #### L AB294 ####Security Software Engineer: RADHA SIMMONS ([id number])[facility])[address] [place] [address] [place] RBC (Bld) [#/Vol] 4.85 10*6/uL Normal 4.40-5.90 [facility] Comment on above: Performed By: #### L AB294 ####Security Software Engineer: RADHA SIMMONS ([id number])[facility] ([facility])[address] [place] [address] WBC (Bld) [#/Vol] 9.9 10*3/uL Normal 3.6-10.7 [facility] Comment on above: Performed By: #### L AB294 ####Security Software Engineer: RADHA SIMMONS ([id number])[facility] ([facility])[address] [place] [address] CBC panel Auto (Bld)Ordered By: Russel Sanchez on 10-05-2023 Erythrocyte distribution width (RBC) [Ratio] 17.7 % High 11.5 - 15.0 % [facility] Hematocrit (Bld) [Volume fraction] 36.7 % Low 40.0 - 52.0 % [facility] Hemoglobin (Bld) [Mass/Vol] 11.3 g/dL Low 13.0 - 18.0 g/dL [facility] Interpretation and review of laboratory results Abnormal [facility] MCH (RBC) [Entitic mass] 23.3 pg Low 26.0 - 34.0 pg [facility] MCHC (RBC) [Mass/Vol] 30.8 % 30.5 - 36.0 % [facility] MCV (RBC) [Entitic vol] 75.7 fL Low 77.0 - 99.0 fL [facility] Platelet mean volume (Bld) [Entitic vol] 10.1 fL 9.0 - 12.7 fL [facility] Platelets (Bld) [#/Vol] 221 10*3/uL 140 - 440 10*3/uL [facility] RBC (Bld) [#/Vol] 4.85 10*6/uL 4.40 - 5.90 10*6/uL [facility] WBC (Bld) [#/Vol] 9.9 10*3/uL 3.6 - 10.7 10*3/uL [facility] COMPREHENSIVE METABOLIC PANE Julio César 10-05-2023 Albumin [Mass/Vol] 4.1 g/dL Normal 3.5-5.0 [facility] Comment on above: Performed By: #### L AB17 ####Security Software Engineer: RADHA SIMMONS ([id number])[facility] ([facility])[address] [place] [address] ALP [Catalytic activity/Vol] 101 U/L Normal 38-126 [facility] Comment on above: Performed By: #### L AB17 ####Security Software Engineer: RADHA SIMMONS ([id number])[facility] ([facility])[address] [place] [address] ALT [Catalytic activity/Vol] 21 U/L Normal 0-49 [facility] Comment on above: Performed By: #### L AB17 ####Security Software Engineer: RADHA SIMMONS ([id number])[facility] ([facility])[address] [place] [address] Anion gap [Moles/Vol] 12 mmol/L Normal 3-13 [facility] Comment on above: Performed By: #### L AB17 ####Security Software Engineer: RADHA SIMMONS ([id number])[facility] ([facility])[address] [place] [address] AST [Catalytic activity/Vol] 29 U/L Normal 15-46 [facility] Comment on above: Performed By: #### L AB17 ####Security Software Engineer: RADHA SIMMONS ([id number])[facility] ([facility])[address] [place] [address] Bilirubin [Mass/Vol] 1.2 mg/dL Normal 0.2-1.3 [facility] Comment on above: Performed By: #### L AB17 ####Security Software Engineer: RADHA SIMMONS ([id number])[facility] ([facility])[address] [place] [address] Calcium [Mass/Vol] 9.0 mg/dL Normal 8.4-10.4 [facility] Comment on above: Performed By: #### L AB17 ####Security Software Engineer: RADHA SIMMONS ([id number])[facility] ([facility])[address] [place] [address] Chloride [Moles/Vol] 102 mmol/L Normal 98-107 [facility] Comment on above: Performed By: #### L AB17 ####Security Software Engineer: RADHA SIMMONS ([id number])[facility] ([facility])[address] [place] [address] CO2 [Moles/Vol] 20 mmol/L Low 22-30 [facility] Comment on above: Performed By: #### L AB17 ####Security Software Engineer: RADHA SIMMONS ([id number])[facility] ([facility])[address] [place] [address] Creatinine [Mass/Vol] 0.89 mg/dL Normal 0.66-1.25 [facility] Comment on above: Performed By: #### L AB17 ####Security Software Engineer: RADHA SIMMONS ([id number])[facility] ([facility])[address] [place] [address] GLOMERULAR FILTRATION RATE ML/MIN/1.73 SQ M.PREDICTED >90.0 Normal >60.0 [facility] Comment on above: Result Comment: Calc ulation based on the Chronic Kidney Disease Epidemiology Collaboration (CKD-EPI) equation refit without adjustment for race Performed By: #### L AB17 ####Security Software Engineer: RADHA SIMMONS ([id number])[facility] ([facility])[address] [place] [address] [place] Glucose [Mass/Vol] 217 mg/dL High 70-100 [facility] Comment on above: Performed By: #### L AB17 ####Security Software Engineer: RADHA SIMMONS ([id number])[facility] ([facility])[address] [place] [address] [place] Potassium [Moles/Vol] 4.3 mmol/L Normal 3.5-5.1 [facility] Comment on above: Performed By: #### L AB17 ####Security Software Engineer: RADHA SIMMONS ([id number])[facility] ([facility])[address] [place] [address] Protein [Mass/Vol] 8.0 g/dL Normal 6.3-8.2 [facility] Comment on above: Performed By: #### L AB17 ####Security Software Engineer: RADHA SIMMONS ([id number])[address] Sodium [Moles/Vol] 134 mmol/L Low 135-145 [facility] Comment on above: Performed By: #### L AB17 ####Security Software Engineer: RADHA SIMMONS ([id number])[facility])[address] [place] [address] Urea nitrogen [Mass/Vol] 20 mg/dL Normal 9-20 [facility] Comment on above: Performed By: #### L AB17 ####Security Software Engineer: RADHA SIMMONS ([id number])[address] Comprehensive metabolic 1998 panelon 10-05-2023 Albumin [Mass/Vol] 4.1 g/dL 3.5 - 5.0 g/dL [facility] ALP [Catalytic activity/Vol] 101 U/L 38 - 126 U/L [facility] ALT [Catalytic activity/Vol] 21 U/L 0 - 49 U/L [facility] Anion gap [Moles/Vol] 12 mmol/L 3 - 13 mmol/L [facility] AST [Catalytic activity/Vol] 29 U/L 15 - 46 U/L [facility] Bilirubin [Mass/Vol] 1.2 mg/dL 0.2 - 1 .3 mg/dL [facility] Calcium [Mass/Vol] 9.0 mg/dL 8.4 - 10. 4 mg/dL [facility] Chloride [Moles/Vol] 102 mmol/L 98 - 10 7 mmol/L [facility] CO2 [Moles/Vol] 20 mmol/L Low 22 - 30 mmol/L [facility] Creatinine [Mass/Vol] 0.89 mg/dL 0.66 - 1.25 mg/dL [facility] GFR/1.73 sq M.predicted MDRD (S/P/Bld) [Vol rate/Area] - PINF [facility] Comment on above: Calculation based on the Chronic Kidney Disease Epidemiology Collaboration (CKD-EPI) equation refit without adjustment for race Glucose [Mass/Vol] 217 mg/dL High 70 - 100 mg/dL [facility] Interpretation and review of laboratory results Abnormal [facility] Potassium [Moles/Vol] 4.3 mmol/L 3.5 - 5.1 mmol/L [facility] Protein [Mass/Vol] 8.0 g/dL 6.3 - 8.2 g/dL [facility] Sodium [Moles/Vol] 134 mmol/L Low 135 - 145 mmol/L [facility] Urea nitrogen [Mass/Vol] 20 mg/dL 9 - 20 mg/dL [facility] ECG 12-LEADon 10-05-2023 ECG 12-LEAD IMPRESSION: Sinus rhythm Left ventricular hypertrophy Anterior Q waves, possibly due to LVH Electronically Signed On 10-05-2023 14:51:39 EDT by Lisa Fernandez [facility] IDNon 10-05-2023 IDN The patient is Moder ately Stable - Low risk of patient condition declining or worsening The patient's goals for the shift include The clinical goals for the shift include Over the shift, the patient did not make progress toward the following goals. Barriers to progression include . Recommendations to address these barriers include . Patient discharged. [facility] IDN The patient is Moder ately Stable - Low risk of patient condition declining or worsening The patient's goals for the shift include improved mental status The clinical goals for the shift include easily orient Over the shift, the patient did not make progress toward the following goals. Barriers to progression include mild confusion. Recommendations to address these barriers include reorient frequently. Normal [facility] Laboratory - Chemistry and C hemistry - challengeon 10-05-2023 Glucose [Mass/Vol] 215 mg/dL High 70 - 100 mg/dL [facility] Comment on above: Caregiver Notified; Glucose [Mass/Vol] 226 mg/dL High 70 - 100 mg/dL [facility] Comment on above: Caregiver Notified; No Panel InformationOrdered By: Lisa Fernandez on 10-05-2023 Heart Rate 77 bpm [facility] [employer] Work Phone: P [place] 12 degrees [facility] [employer] Work Phone: [place] Interval 160 ms [facility] [employer] Work Phone: QRS [place] -16 degrees [facility] [employer] Work Phone: QRSD Interval 113 ms [facility] Work Phone: [phone] QT Interval 401 ms [facility] Work Phone: [phone] QTC Interval 453 ms [facility] [employer] Work Phone: [phone] T Wave [place] 16 degrees [facility] [employer] Work Phone: [phone] [facility] Work Phone: [phone] No Panel Informationon 10-04 Sinus rhythm Left ventricular hypertrophy Anterior Q waves, possibly due to LVH Electronically Signed On 10-05-2023 14:51:39 EDT by Lisa Fernandez CV Lisa Patton MD - 10/05/2023 IMPRESSION: Sinus rhythm Left ventricular hypertrophy Anterior Q waves, possibly due to LVH Electronically Signed On 10-05-2023 14:51:39 EDT by Lisa Fernandez [facility] Interpretation and review of laboratory results Abnormal [facility] [employer] Performed by: [facility], [address] [place] [address] CLIA ID: [id number] [facility] Interpretation and review of laboratory results Abnormal [facility] Performed by: [facility], [address] [place] [id number] CLIA ID: [id number] [facility] Nursing Noteon 10-05-2023 Nursing Note Patient discharged a t this time. Patient alert and oriented, reviewed discharge instructions with patient and daughter. PIV removed, tele removed. Normal [facility] Progress Noteon 10-05-2023 Progress Note Nutrition rescreen completed. Chart reviewed. Patient to be monitored and followed by the diet brain wave technician. Dietitian available upon request. Normal [facility] BASIC METABOLIC PANELon 07-0 Anion gap [Moles/Vol] 11 mmol/L Normal 3-13 [facility] Comment on above: Performed By: #### L AB15 ####Security Software Engineer: RADHA SIMMONS ([id number])[facility] ([facility])[address] [place] [address] Calcium [Mass/Vol] 9.3 mg/dL Normal 8.4-10.4 [facility] Comment on above: Performed By: #### L AB15 ####Security Software Engineer: RADHA SIMMONS ([id number])[facility] ([facility])[address] [place] [address] Chloride [Moles/Vol] 105 mmol/L Normal 98-107 [facility] Comment on above: Performed By: #### L AB15 ####Security Software Engineer: RADHA SIMMONS ([id number])[facility] ([facility])[address] [place] [address] CO2 [Moles/Vol] 19 mmol/L Low 22-30 [facility] Comment on above: Performed By: #### L AB15 ####Security Software Engineer: RADHA SIMMONS ([id number])[facility])[address] [place] [address] Creatinine [Mass/Vol] 0.77 mg/dL Normal 0.66-1.25 [facility] Comment on above: Performed By: #### L AB15 ####Security Software Engineer: RADHA SIMMONS ([id number])[facility])[address] [place] [address] GLOMERULAR FILTRATION RATE ML/MIN/1.73 SQ M.PREDICTED >90.0 Normal >60.0 [facility] Comment on above: Result Comment: Calc ulation based on the Chronic Kidney Disease Epidemiology Collaboration (CKD-EPI) equation refit without adjustment for race Performed By: #### L AB15 ####Security Software Engineer: RADHA SIMMONS ([id number])[facility] ([facility])[address] [place] [address] Glucose [Mass/Vol] 177 mg/dL High 70-100 [facility] Comment on above: Performed By: #### L AB15 ####Security Software Engineer: RADHA SIMMONS ([id number])[facility])[address] [place] [address] Potassium [Moles/Vol] 4.4 mmol/L Normal 3.5-5.1 [facility] Comment on above: Performed By: #### L AB15 ####Security Software Engineer: RADHA [id number])[facility] ([facility])[address] [place] [address] Sodium [Moles/Vol] 134 mmol/L Low 135-145 [facility] Comment on above: Performed By: #### L AB15 ####Security Software Engineer: RADHA SIMMONS ([id number])[facility] ([facility])[address] [place] [address] Urea nitrogen [Mass/Vol] 17 mg/dL Normal 9-20 [facility] Comment on above: Performed By: #### L AB15 ####Security Software Engineer: RADHA SIMMONS ([id number])[facility] ([facility])[address] [place] [address] Basic metabolic 1998 panelon 10-04-2023 Anion gap [Moles/Vol] 11 mmol/L 3 - 13 mmol/L [facility] Calcium [Mass/Vol] 9.3 mg/dL 8.4 - 10. 4 mg/dL [facility] Chloride [Moles/Vol] 105 mmol/L 98 - 10 7 mmol/L [facility] CO2 [Moles/Vol] 19 mmol/L Low 22 - 30 mmol/L [facility] Creatinine [Mass/Vol] 0.77 mg/dL 0.66 - 1.25 mg/dL [facility] GFR/1.73 sq M.predicted MDRD (S/P/Bld) [Vol rate/Area] - PINF [facility] Comment on above: Calculation based on the Chronic Kidney Disease Epidemiology Collaboration (CKD-EPI) equation refit without adjustment for race Glucose [Mass/Vol] 177 mg/dL High 70 - 100 mg/dL [facility] Interpretation and review of laboratory results Abnormal [facility] Potassium [Moles/Vol] 4.4 mmol/L 3.5 - 5.1 mmol/L [facility] Sodium [Moles/Vol] 134 mmol/L Low 135 - 145 mmol/L [facility] Urea nitrogen [Mass/Vol] 17 mg/dL 9 - 20 mg/dL [facility] CARECOORDon 10-04-2023 [facility] Care Managment Initi al Assessment Date: 10/04/2023 Patient Name: Krunal Leos : 1965 Patient Information Source of Information: Patient Cognition/Language: WFL - Within Functional Limits Permission given to speak with patient event marketing representative/caregiver as indicated: Confirmation of Payer with patient/family: Yes Payer Name: [facility] [place] : No Confirmation of Primary Care Physician: [...] 0 x 3. He was transferred from [facility] with CVA/TIA. Vascular and Neurology have been consulted. Needs carotid US. Anticipate home with no needs when stable.. . Gris Keith RN Normal [facility] CBC (HEMOGRAM)on 10-04-2023 Erythrocyte distribution width (RBC) [Ratio] 17.9 % High 11.5-15.0 [facility] Comment on above: Performed By: #### L [id number] #### Security Software Engineer: RADHA SIMMONS ([id number]) [facility] ([place] [id number] [place] Hematocrit (Bld) [Volume fraction] 39.6 % Low 40.0-52.0 [facility] Comment on above: Performed By: #### L AB294 #### Security Software Engineer: RADHA SIMMONS ([id number]) [facility]) [address] [place] [address] Hemoglobin (Bld) [Mass/Vol] 11.3 g/dL Low 13.0-18.0 [facility] Comment on above: Performed By: #### L AB294 #### Security Software Engineer: RADHA SIMMONS ([id number]) [facility] ([facility]) [address] [place] [address] MCH (RBC) [Entitic mass] 23.7 pg Low 26.0-34.0 [facility] Comment on above: Performed By: #### L AB294 #### Security Software Engineer: RADHA SIMMONS ([id number]) [facility]) [address] [place] [address] MCHC 28.5 % Low 30.5-36.0 [facility] Comment on above: Performed By: #### L AB294 #### Security Software Engineer: RADHA SIMMONS ([id number]) [facility] ([facility]) [address] [place] [address] MCV (RBC) [Entitic vol] 83.2 fL Normal 77.0-99.0 [facility] Comment on above: Performed By: #### L AB294 #### Security Software Engineer: RADHA SIMMONS ([id number]) [facility] ([facility]) [address] [place] [address] Platelet mean volume (Bld) [Entitic vol] 9.5 fL Normal 9.0-12.7 [facility] Comment on above: Performed By: #### L AB294 #### Security Software Engineer: RADHA SIMMONS ([id number]) [facility] ([facility]) [address] [place] [address] Platelets (Bld) [#/Vol] 201 10*3/uL Normal 140-440 [facility] Comment on above: Performed By: #### L AB294 #### Security Software Engineer: RADHA SIMMONS ([id number]) [facility]) [address] [place] [address] RBC (Bld) [#/Vol] 4.76 10*6/uL Normal 4.40-5.90 [facility] Comment on above: Performed By: #### L AB294 #### Security Software Engineer: RADHA SIMMONS ([id number]) [facility] ([facility]) [address] [place] [address] WBC (Bld) [#/Vol] 8.3 10*3/uL Normal 3.6-10.7 [facility] Comment on above: Performed By: #### L AB294 #### Security Software Engineer: RADHA SIMMONS ([id number]) [facility] ([facility]) [address] [place] [address] CBC panel Auto (Bld)Ordered By: Eduin Brar on 10-04-2023 Erythrocyte distribution width (RBC) [Ratio] 17.9 % High 11.5 - 15.0 % [facility] Hematocrit (Bld) [Volume fraction] 39.6 % Low 40.0 - 52.0 % [facility] Hemoglobin (Bld) [Mass/Vol] 11.3 g/dL Low 13.0 - 18.0 g/dL [facility] Interpretation and review of laboratory results Abnormal [facility] MCH (RBC) [Entitic mass] 23.7 pg Low 26.0 - 34.0 pg [facility] MCHC (RBC) [Mass/Vol] 28.5 % Low 30.5 - 36.0 % [facility] MCV (RBC) [Entitic vol] 83.2 fL 77.0 - 99.0 fL [facility] [employer] Platelet mean volume (Bld) [Entitic vol] 9.5 fL 9.0 - 12.7 fL [facility] [employer] Platelets (Bld) [#/Vol] 201 10*3/uL 140 - 440 10*3/uL [facility] RBC (Bld) [#/Vol] 4.76 10*6/uL 4.40 - 5.90 10*6/uL [facility] WBC (Bld) [#/Vol] 8.3 10*3/uL 3.6 - 10.7 10*3/uL [facility] Consulton 10-04-2023 Consult Inpatient consult to Endovascular Neurology-- Consult performed by: Mey Loya APRN - SLOT FLOORPERSON Consult ordered by: Raphael Stone MD Reason for consult: vertebbral artery occlusion/ stenosis History Of Present Illness Krunal Leos is a 58 y.o. male presenting with left face and hand weakness in setting of chronic dizziness. Pt does have history of atrial fibrillation on Eliquis. Pt reports group home episodic room spinning with diaphoresis that lasts [...] and symmetric in all four extremities. Coordination [id number]-[id number], rapid alternating movements and hurl-[id number] normal bilaterally without dysmetria. Awake and alert [...] intervention indicated (more content not included)... Normal [facility] Consult INITIAL CONSULT NOTE . STROKE SERVICE Patient Name: Krunal Leos Patient : 1965 Acct: [id number] Date of Admission: 10/03/2023 Room/Bed: [facility] A PCP: RADHA KHAN History of Present Ilness: 58 y.o. is man with the chief Complaint of: transferred from [place] for further evaluation of severe cerebrovascular disease [...] 10 mg, 10 mg, Oral, TID, Michael Rcio MD, 10 mg at 10/03/232241 dapagliflozin (Farxiga) [...] (Glucotrol) tablet 5 mg, 5 mg, Oral, qA AC, Michael Rico MD, 5 mg at 10/04/23 [...] Levoxyl) tablet 112 mcg, 112 mcg, Oral, Immanuel COLE, Michael Rico MD, 112 mcg at 10/04/23 0555 metoprolol succinate XL (Toprol-XL) 24 hr tablet 100 mg, 100 mg, Oral, Daily, Michael Rico MD pantoprazole (ProtoNix) EC tablet 40 mg, 40 mg, Oral, [facility], Michael Rico MD, 40 mg at 10/04/23 [...] place Me (more content not included)... Normal [facility] Consult ----- ----- Attestation signed by Suzy [...] of Eliquis last night - follow up [facility] service evaluation - further plans to follow [...] ?F) SpO2: (more content not included)... Normal [facility] HEMOGLOBIN A1Con 10-04-2023 Glucose [Mass/Vol] 177 mg/dL Normal [facility] Comment on above: Performed By: #### L AB90 ####Security Software Engineer: RADHA SIMMONS ([id number])[address] HbA1c (Bld) [Mass fraction] 7.8 % High <5.7 [facility] Comment on above: Result Comment: Norm al less than 5.7% Prediabetes 5.7% to 6.4% Diabetes 6.5% or higher --HgbA1C levels may not be accurate in patients who have renal disease, received recent blood transfusions, are anemic, or who have dyshemoglobinemia. Performed By: #### L AB90 ####Security Software Engineer: RADHA SIMMONS ([id number])[facility])[address] [place] [address] LIPID PANELon 10-04-2023 Cholesterol [Mass/Vol] 147 mg/dL Normal <200 [facility] Comment on above: Performed By: #### L AB747, LAB18 ####Security Software Engineer: RADHA SIMMONS ([id number])[address] Cholesterol in HDL [Mass/Vol] 27 mg/dL Low 40-60 [facility] Comment on above: Performed By: #### L AB747, LAB18 ####Security Software Engineer: RADHA SIMMONS ([id number])[address] Cholesterol.total/Arsenio sterol in HDL [Mass ratio] 5 {ratio} Normal [facility] Comment on above: Result Comment: Ref Range: < 3 Low Risk for CHD 3-6 Mod Risk for CHD > 6 High Risk for CHD Performed By: #### L [id number], [id number] ####Security Software Engineer: RADHA SIMMONS ([id number])[facility] ([facility])[address] [place] [address] LOW DENSITY LIPOPROTEIN 41 mg/dL Normal 0-<100 [facility] Comment on above: Performed By: #### L [id number], [id number] ####Security Software Engineer: RADHA SIMMONS ([id number])[facility] ([facility])[address] [place] [address] Triglyceride [Mass/Vol] 397 mg/dL High <150 [facility] Comment on above: Performed By: #### L [id number], LAB18 ####Security Software Engineer: RADHA SIMMONS ([id number])[facility] ([facility])[address] [place] [address] Laboratory - Chemistry and C hemistry - challengeon 10-04-2023 Glucose [Mass/Vol] 221 mg/dL High 70 - 100 mg/dL [facility] Glucose [Mass/Vol] 157 mg/dL High 70 - 100 mg/dL [facility] Troponin I.cardiac [Mass/Vol] ng/mL [facility]/mL [facility] Glucose [Mass/Vol] 162 mg/dL High 70 - 100 mg/dL [facility] Troponin I.cardiac [Mass/Vol] ng/mL [facility] ng/mL [facility] Glucose [Mass/Vol] 193 mg/dL High 70 - 100 mg/dL [facility] Average glucose Estimated from glycated hemoglobin (Bld) [Mass/Vol] 177 mg/dL [facility] Laboratory - Coagulationon 0 10-04-2023 aPTT Coag (PPP) [Time] 27.3 s 20.0 - 30.5 s [facility] INR Coag (PPP) [Relative time] 1.0 {INR} 0.9 - 1.1 [facility] Comment on above: Recommended Anticoag ulant Therapy: [...] 10.9 s 9.0 - 1 2.0 s [facility] Laboratory - Hematology and Cell countson 10-04-2023 HbA1c (Bld) [Mass fraction] 7.8 % High NINF - 5.7 % [facility] Comment on above: Normal less than 5.7 % Prediabetes 5.7% to 6.4% Diabetes 6.5% or higher --HgbA1C levels may not be accurate in patients who have renal disease, received recent blood transfusions, are anemic, or who have dyshemoglobinemia. Lipid 1996 panelon 4 Cholesterol [Mass/Vol] 147 mg/dL NINF - 200 mg/dL [facility] [employer] Cholesterol in HDL [Mass/Vol] 27 mg/dL Low 40 - 60 mg/dL [facility] Cholesterol in LDL [Mass/Vol] 41 mg/dL 0 - <100 [facility] Cholesterol.total/Arsenio sterol in HDL [Mass ratio] 5 {ratio} [facility] Comment on above: Ref Range: < 3 Low Risk for CHD 3-6 Mod Risk for CHD > 6 High Risk for CHD Interpretation and review of laboratory results Abnormal [facility] Triglyceride [Mass/Vol] 397 mg/dL High NINF - 150 mg/dL [facility] No Panel Informationon 10-03 Interpretation and review of laboratory results Abnormal [facility] Performed by: [facility] Mor.sl [facility], [address] [place], [place] [id number] CLIA ID: [id number] [facility] Interpretation and review of laboratory results Abnormal [facility] Performed by: [facility], [address] [place] [id number] CLIA ID: [id number] [facility] Interpretation and review of laboratory results Normal [...] and heterogeneous plaque. Subclavian has turbulent flow. 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 During the study longitudinal and transverse views were obtained. Pulsed wave doppler was performed. The exam was performed with the patient in the supine position. Overall the study quality was adequate. Study was technically difficult due to: acoustic shadowing and body habitus. [facility] Interpretation and review of laboratory results Abnormal [facility] Performed by: [facility], [address] [place] [address] CLIA ID: [id number] [facility] Interpretation and review of laboratory results Abnormal [facility] Performed by: [facility], [address] [place] [address] CLIA ID: [id number] [facility] Interpretation and review of laboratory results Abnormal [facility] No Panel InformationOrdered By: Analia Zamudio on 10-04-2023 Left CCA dist EDV 36.3 cm/s [facility] Work Phone: Left CCA dist PSV 252.1 cm/s [facility] Work Phone: Left CCA mid EDV 40.30 cm/s [facility] Work Phone: Left CCA mid PSV 257.50 cm/s [facility] Work Phone: Left CCA prox EDV 34.8 cm/s [facility] Work Phone: Left CCA prox PSV 191.4 cm/s [facility] Work Phone: Left ECA EDV 18.70 cm/s [facility] Work Phone: Left ECA PSV 223.6 cm/s [facility] Work Phone: Left ICA dist EDV 23.1 cm/s [facility] Work Phone: Left ICA dist PSV 69.7 cm/s [facility] Work Phone: Left ICA mid EDV 38.3 cm/s [facility] Work Phone: Left ICA mid PSV 174.6 cm/s [facility] Work Phone: Left ICA prox EDV 28.0 cm/s [facility] Work Phone: Left ICA prox PSV 177.2 cm/s [facility] Work Phone: Left ICA/CCA PSV 0.69 [facility] Work Phone: Left vertebral EDV 6.00 cm/s [facility] Work Phone: Left vertebral PSV 27.1 cm/s [facility] Work Phone: Right CCA dist EDV 22.9 cm/s [facility] Work Phone: Right cca dist PSV 120.8 cm/s [facility] Work Phone: Right CCA mid EDV 26.50 cm/s [facility] Work Phone: Right CCA mid PSV 108.10 cm/s [facility] Work Phone: Right CCA prox EDV 28.0 cm/s [facility] Work Phone: Right CCA prox PSV 161.8 cm/s [facility] Work Phone: Right ICA dist EDV 24.7 cm/s [facility] Work Phone: [phone] Right ICA dist PSV 78.9 cm/s [facility] Work Phone: [phone] Right ICA mid EDV 30.1 cm/s [facility] [employer] Work Phone: [phone] Right ICA mid PSV 97.5 cm/s [facility] [employer] Work Phone: [phone] Right ICA prox EDV 16.0 cm/s [facility] Work Phone: [phone] Right ICA prox PSV 74.3 cm/s [employer] Work Phone: [phone] Right ICA/CCA PSV 0.90 [facility] CampusAct[facility] Work Phone: [phone] Right subclavian mid EDV 9.7 cm/s [facility] Work Phone: [phone] Right subclavian mid PSV 66.0 cm/s [facility] Work Phone: [phone] Right vertebral EDV 12.00 cm/s [facility] Work Phone: [phone] Right vertebral PSV 47.5 cm/s [facility] Work Phone: [phone] PROTIME AND APTTon 4 aPTT Coag (Bld) [Time] 27.3 s Normal 20.0-30.5 [facility] Comment on above: Performed By: #### L [id number] ####Security Software Engineer: RADHA SIMMONS ([id number])[address] INR Coag (PPP) [Relative time] 1.0 {INR} Normal 0.9-1.1 [facility] Comment on above: Result Comment: Luciano mmended [...] prevent Myocardial Infarction Performed By: #### L [id number] ####Security Software Engineer: RADHA SIMMONS ([id number])[facility])[address] [place] [address] PT Coag (PPP) [Time] 10.9 s Normal 9.0-12.0 [facility] Comment on above: Performed By: #### L [id number] ####Security Software Engineer: RADHA SIMMONS ([id number])[facility] ([facility])[address] [place] [address] [place] TROPONIN Ion 10-04-2023 Troponin I.cardiac [Mass/Vol] ng/mL Normal <0.034 [facility] Comment on above: Result Comment: DAPHNE Lang COMMENTS: Patients with high levels of Biotin oral intake (ie >5 mg/day) may have falsely decreased Troponin levels. Performed By: #### L [id number], LAB18 ####Security Software Engineer: RADHA SIMMONS ([id number])[address] TROPONIN, WITH SERIAL REFLEX on 10-04-2023 Troponin I.cardiac [Mass/Vol] ng/mL Normal <0.034 [facility] Comment on above: Result Comment: DAPHNE Lang COMMENTS: Patients with high levels of Biotin oral intake (ie >5 mg/day) may have falsely decreased Troponin levels. Performed By: #### L [id number] ####Security Software Engineer: RADHA SIMMONS ([id number])[facility])[address] [place] [address] Troponin I.cardiac [Mass/Vol ]on 10-04-2023 Interpretation and review of laboratory results Normal [facility] Patients with high l evels of Biotin oral intake (ie >5 mg/day) may have falsely decreased Troponin levels. [facility] Interpretation and review of laboratory results Normal [facility] Patients with high l evels of Biotin oral intake (ie >5 mg/day) may have falsely decreased Troponin levels. [facility] .Auto Diffon 10-03-2023 Basophil, Absolute 0.1 10 3/mcL Normal 0.0-0.2 [facility] ([place]) Comment on above: Performed By: #### M G, GFR, ADIFF, ANEU, CBC, CMP ####[address] [place], [place] [address] Basophils/100 WBC (Bld) 1.0 % Normal 0.0-2.5 A [facility] ([place]) Comment on above: Performed By: #### M G, GFR, ADIFF, ANEU, CBC, CMP ####[address] [place], [place] [address] Eosinophil, Absolute 0.4 10 3/mcL Normal 0.0-0.4 [facility] ([place]) Comment on above: Performed By: #### M G, GFR, ADIFF, ANEU, CBC, CMP ####[address] [place], [place] [address] Eosinophils/100 WBC (Bld) 5.1 % Normal 0.0-7.0 [facility] ([place]) Comment on above: Performed By: #### M G, GFR, ADIFF, ANEU, CBC, CMP ####[address] [place], [place] [address] Lymphocyte, Absolute 1.6 10 3/mcL Normal 0.8-3.9 [facility] ([place]) Comment on above: Performed By: #### M G, GFR, ADIFF, ANEU, CBC, CMP ####[address] [place], [place] [address] Lymphocytes/100 WBC (Bld) 20.4 % Normal 10.0-50.0 [facility] ([place]) Comment on above: Performed By: #### M G, GFR, ADIFF, ANEU, CBC, CMP ####[address] [place], [place] [address] Monocyte, Absolute 0.9 10 3/mcL Normal 0.2-1.0 [facility] ([place]) Comment on above: Performed By: #### M G, GFR, ADIFF, ANEU, CBC, CMP ####[address] [place], [place] [address] Monocytes/100 WBC (Bld) 11.5 % Normal 1.7-13.0 A [facility] ([place]) Comment on above: Performed By: #### M G, GFR, ADIFF, ANEU, CBC, CMP ####[address] [place], [place] [address] Neutrophils/100 WBC (Bld) 62.0 % Normal 37.0-80.0 [facility] ([place]) Comment on above: Performed By: #### M G, GFR, ADIFF, ANEU, CBC, CMP ####[address] [place], [place] [address] .GFRon 10-03-2023 GFR Non- 72 ml/min/1.73sqm Normal [facility] ([place]) Comment on above: Result Comment: GFR Population [...] G, GFR, ADIFF, ANEU, CBC, CMP ####[address] [place], [place] [address] GFR 87 ml/min/1.73sqm Normal [facility] ([place]) Comment on above: Result Comment: GFR Population [...] GFR, ADIFF, ANEU, CBC, CMP ####[address] [place], [place] [address] .NEUABSon 10-03-2023 Neutrophil, Absolute 4.7 10 3/mcL Normal 2.9-6.2 [facility] ([place]) Comment on above: Performed By: #### M G, GFR, ADIFF, ANEU, CBC, CMP ####[address] [place], [place] [address] CBCon 10-03-2023 Erythrocyte distribution width (RBC) [Ratio] 18.3 % High 11.5-14.5 [facility] ([place]) Comment on above: Performed By: #### M G, GFR, ADIFF, ANEU, CBC, CMP ####[address] [place], [place] [address] Hematocrit (Bld) [Volume fraction] 32.0 % Low 42.0-52.0 [facility] ([place]) Comment on above: Performed By: #### M G, GFR, ADIFF, ANEU, CBC, CMP ####[address] [place], [place] [address] Hgb 10.5 G/dL Low 14.0-18.0 [facility] ([place]) Comment on above: Performed By: #### M G, GFR, ADIFF, ANEU, CBC, CMP ####[address] [place], [place] [address] MCH (RBC) [Entitic mass] 24.5 pg Low 27.0-31.2 [facility] ([place]) Comment on above: Performed By: #### M G, GFR, ADIFF, ANEU, CBC, CMP ####[address] [place], [place] [address] MCHC 32.9 G/dL Normal 31.8-35.4 [facility] ([place]) Comment on above: Performed By: #### M G, GFR, ADIFF, ANEU, CBC, CMP ####[address] [place], [place] [address] MCV (RBC) [Entitic vol] 74.3 fL Low 80.0-94.0 A [facility] ([place]) Comment on above: Performed By: #### M G, GFR, ADIFF, ANEU, CBC, CMP ####[address] [place], [place] [address] Platelet 211 10 3/mcL Normal 130-400 [facility] ([place]) Comment on above: Performed By: #### M G, GFR, ADIFF, ANEU, CBC, CMP ####[address] [place], [place] [address] Platelet mean volume (Bld) [Entitic vol] 7.6 fL Normal 7.4-10.4 [facility] ([place]) Comment on above: Performed By: #### M G, GFR, ADIFF, ANEU, CBC, CMP ####[address] [place], [place] [address] RBC 4.31 10 6/mcL Normal 4.04-6.13 [facility] ([place]) Comment on above: Performed By: #### M G, GFR, ADIFF, ANEU, CBC, CMP ####[address] [place], [place] [address] WBC 7.6 10 3/mcL Normal 4.6-10.8 [facility] ([place]) Comment on above: Performed By: #### [place] G, GFR, ADIFF, ANEU, CBC, CMP ####[address] [place], [place] [address] CMPon 10-03-2023 Albumin Level 3.1 G/dL Low 3.4-4.8 [facility] ([place]) Comment on above: Performed By: #### M G, GFR, ADIFF, ANEU, CBC, CMP ####[address] [place], [place] [address] Albumin/Globulin [Mass ratio] 0.8 {ratio} Low 1.1-2.5 [facility] ([place]) Comment on above: Performed By: #### M G, GFR, ADIFF, ANEU, CBC, CMP ####[address] [place], [place] [address] ALP [Catalytic activity/Vol] 93 U/L Normal 40-135 [facility] ([place]) Comment on above: Performed By: #### M G, GFR, ADIFF, ANEU, CBC, CMP ####[address] [place], [place] [address] ALT [Catalytic activity/Vol] 20 U/L Normal 16-63 [facility] ([place]) Comment on above: Performed By: #### M G, GFR, ADIFF, ANEU, CBC, CMP ####[address] [place], [place] [address] AST [Catalytic activity/Vol] 15 U/L Normal 10-40 [facility] ([place]) Comment on above: Performed By: #### M G, GFR, ADIFF, ANEU, CBC, CMP ####[address] [place], [place] [address] Bili Total 0.5 mg/dL Normal 0.2-1.0 [facility] ([place]) Comment on above: Result Comment: Use of this assay is not recommended for patients undergoing treatment with eltrombopag due to the potential for falsely elevated results. Performed By: #### M G, GFR, ADIFF, ANEU, CBC, CMP ####[address] [place], [place] [address] BUN/Creatinine Ratio 17 ratio Normal 7-27 [facility] ([place]) Comment on above: Performed By: #### M G, GFR, ADIFF, ANEU, CBC, CMP ####[address] [place], [place] [address] Calcium [Mass/Vol] 8.9 mg/dL Normal 8.4-10.2 [facility] ([place]) Comment on above: Performed By: #### M G, GFR, ADIFF, ANEU, CBC, CMP ####[address] [place], [place] [address] Chloride [Moles/Vol] 104 mmol/L Normal 98-107 [facility] ([place]) Comment on above: Performed By: #### M G, GFR, ADIFF, ANEU, CBC, CMP ####[address] [place], [place] [address] CO2 [Moles/Vol] 27 mmol/L Normal 23-31 [facility] ([place]) Comment on above: Performed By: #### M G, GFR, ADIFF, ANEU, CBC, CMP ####[address] [place], [place] [address] Creatinine [Mass/Vol] 1.05 mg/dL Normal 0.70-1.30 [facility] ([place]) Comment on above: Performed By: #### M G, GFR, ADIFF, ANEU, CBC, CMP ####[address] [place], [place] [address] Electrolyte Balance 7.0 mEq/L Normal 4.0-15.0 [facility] ([place]) Comment on above: Performed By: #### M G, GFR, ADIFF, ANEU, CBC, CMP ####[address] [place], [place] [address] Globulin 3.9 G/dL Normal [facility] ([place]) Comment on above: Performed By: #### M G, GFR, ADIFF, ANEU, CBC, CMP ####[address] [place], [place] [address] Glucose [Mass/Vol] 158 mg/dL High 80-115 [facility] ([place]) Comment on above: Performed By: #### M G, GFR, ADIFF, ANEU, CBC, CMP ####[address] [place], [place] [address] Potassium [Moles/Vol] 4.5 mmol/L Normal 3.5-5.1 [facility] ([place]) Comment on above: Performed By: #### M G, GFR, ADIFF, ANEU, CBC, CMP ####[address] [place], [place] [address] Sodium [Moles/Vol] 138 mmol/L Normal 136-145 [facility] ([place]) Comment on above: Performed By: #### M G, GFR, ADIFF, ANEU, CBC, CMP ####[address] [place], [place] [address] Total Protein 7.0 G/dL Normal 6.4-8.2 [facility] ([place]) Comment on above: Performed By: #### M G, GFR, ADIFF, ANEU, CBC, CMP ####[address] [place], [place] [address] Urea nitrogen [Mass/Vol] 18 mg/dL Normal 7-18 [facility] ([place]) Comment on above: Performed By: #### M G, GFR, ADIFF, ANEU, CBC, CMP ####[address] [place], [place] [address] CT ANGIOGRAPHY HEAD W/ CONTR Arpit 10-03-2023 [...] 10/03/2023 10:41:49 AM Ordering Provider: ABDULLAHI AGUIRRE [facility] ([place]) CT ANGIOGRAPHY NECK W/CONTRA Kassidy 10-03-2023 CT [...] 10/03/2023 10:41:06 AM Ordering Provider: ABDULLAHI AGUIRRE [facility] ([place]) CT HEAD OR BRAIN W/O CONTRAS Ton [...] 10/01/2023 11:46:49 PM Ordering Provider: TITA Echevarria [facility] ([place]) LABORATORYOrdered By: Kwasi Rob on 10-03-2023 Blood Glucose Testing Reason Routine (10/03/23 4:43 PM) [facility] Work Phone: Glucose [Mass/Vol] 267 mg/dL High 82 - 115 mg/dL [facility] Work Phone: Blood Glucose Testing Reason Routine (10/03/23 11:39 AM) [facility] Work Phone: Glucose [Mass/Vol] 210 mg/dL High 82 - 115 mg/dL [facility] Work Phone: Blood Glucose Testing Reason Routine (10/03/23 7:58 AM) [facility] Work Phone: Glucose [Mass/Vol] 214 mg/dL High 82 - 115 mg/dL [facility] Work Phone: LABORATORYOrdered By: SYSTEM SYSTEM on [...] 10-03-2023 Magnesium [Mass/Vol] 2.0 mg/dL Normal 1.8-2.4 [facility] ([place]) Comment on above: Performed By: #### M G, GFR, ADIFF, ANEU, CBC, CMP ####[address] [place], [place] [address] Nursing Noteon 10-03-2023 Nursing Note Pt arrived from [facility], ambulated to bed, NIH scale 1, pt A&O x 4, denies numbness or tingling, denies headache or dizziness, denies needs at this time, call light and belongings within reach, will monitor. Normal [facility] .Auto DiffOrdered By: SYSTEM SYSTEM on 10-02-2023 Basophil, Absolute 0.1 103/mcL Normal 0.0-0.2 AO Wo rkflow SS Comment on above: Performed By: #### C BC, ADIFF, MG, GFR, ANEU, CMP ####[address] [place], [place] [address] Basophils/100 WBC (Bld) 1.0 % Normal 0.0-2.5 A O Workflow SS Comment on above: Performed By: #### C BC, ADIFF, MG, GFR, ANEU, CMP ####[address] [place], [place] [address] Eosinophil, Absolute 0.3 103/mcL Normal 0.0-0.4 AO Workflow SS Comment on above: Performed By: #### C BC, ADIFF, MG, GFR, ANEU, CMP ####[address] [place], [place] [address] Eosinophils/100 WBC (Bld) 3.8 % Normal 0.0-7.0 AO Workflow SS Comment on above: Performed By: #### C BC, ADIFF, MG, GFR, ANEU, CMP ####[address] [place], [place] [address] Lymphocyte, Absolute 1.6 103/mcL Normal 0.8-3.9 AO Workflow SS Comment on above: Performed By: #### C BC, ADIFF, MG, GFR, ANEU, CMP ####[address] [place], [place] [address] Lymphocytes/100 WBC (Bld) 23.2 % Normal 10.0-50.0 AO Workflow SS Comment on above: Performed By: #### C BC, ADIFF, MG, GFR, ANEU, CMP ####[address] [place], [place] [address] Monocyte, Absolute 0.7 103/mcL Normal 0.2-1.0 AO Wo rkflow SS Comment on above: Performed By: #### C BC, ADIFF, MG, GFR, ANEU, CMP ####[address] [place], [place] [address] Monocytes/100 WBC (Bld) 9.7 % Normal 1.7-13.0 A O Workflow SS Comment on above: Performed By: #### C BC, ADIFF, MG, GFR, ANEU, CMP ####[address] [place], [place] [address] Neutrophils/100 WBC (Bld) 62.3 % Normal 37.0-80.0 AO Workflow SS Comment on above: Performed By: #### C BC, ADIFF, MG, GFR, ANEU, CMP ####[address] [place], [place] [address] .GFRon 10-02-2023 GFR 76 ml/min/1.73sqm Normal [facility] ([place]) Comment on above: Result Comment: GFR Population [...] ADIFF, MG, GFR, ANEU, CMP ####[address] [place], [place] [address] GFR Non- 63 ml/min/1.73sqm Normal [facility] ([place]) Comment on above: Result Comment: GFR Population [...] BC, ADIFF, MG, GFR, ANEU, CMP ####[address] [place], [place] [address] .NEUABSOrdered By: SYSTEM SY STEM on 10-02-2023 Neutrophil, Absolute 4.4 103/mcL Normal 2.9-6.2 AO Workflow SS Comment on above: Performed By: #### C BC, ADIFF, MG, GFR, ANEU, CMP ####[address] [place], [place] [address] A1Con 10-02-2023 HbA1c (Bld) [Mass fraction] 7.7 % High 4.3-6.4 [facility] ([place]) Comment on above: Performed By: #### F T4, LIPID, A1C, TSH #### [address] [address] CBCOrdered By: SYSTEM SYSTEM on 10-02-2023 Erythrocyte distribution width (RBC) [Ratio] 18.7 % High 11.5-14.5 AO Workflow SS Comment on above: Performed By: #### C BC, ADIFF, MG, GFR, ANEU, CMP ####[address] [place], [place] [address] Hematocrit (Bld) [Volume fraction] 33.0 % Low 42.0-52.0 AO Workflow SS Comment on above: Performed By: #### C BC, ADIFF, MG, GFR, ANEU, CMP ####[address] [place], [place] [address] MCH (RBC) [Entitic mass] 24.6 pg Low 27.0-31.2 AO Workflow SS Comment on above: Performed By: #### C BC, ADIFF, MG, GFR, ANEU, CMP ####[address] [place], [place] [address] MCHC 32.8 G/dL Normal 31.8-35.4 AO Workflow SS Comment on above: Performed By: #### C BC, ADIFF, MG, GFR, ANEU, CMP ####[address] [place], [place] [address] MCV (RBC) [Entitic vol] 75.0 fL Low 80.0-94.0 A O Workflow SS Comment on above: Performed By: #### C BC, ADIFF, MG, GFR, ANEU, CMP ####[address] [place], [place] [address] Platelet mean volume (Bld) [Entitic vol] 7.5 fL Normal 7.4-10.4 AO Workflow SS Comment on above: Performed By: #### C BC, ADIFF, MG, GFR, ANEU, CMP ####[address] [place], [place] [address] CBCon 10-02-2023 Hgb 10.8 G/dL Low 14.0-18.0 [facility] ([place]) Comment on above: Performed By: #### C BC, ADIFF, MG, GFR, ANEU, CMP ####[address] [place], [place] [address] Platelet 220 10 3/mcL Normal 130-400 [facility] ([place]) Comment on above: Performed By: #### C BC, ADIFF, MG, GFR, ANEU, CMP ####[address] [place], [place] [address] RBC 4.40 10 6/mcL Normal 4.04-6.13 [facility] ([place]) Comment on above: Performed By: #### C BC, ADIFF, MG, GFR, ANEU, CMP ####[address] [place], [place] [address] WBC 7.0 10 3/mcL Normal 4.6-10.8 [facility] ([place]) Comment on above: Performed By: #### C BC, ADIFF, MG, GFR, ANEU, CMP ####[address] [place], [place] [address] CMPon 10-02-2023 Albumin Level 3.2 G/dL Low 3.4-4.8 [facility] ([place]) Comment on above: Performed By: #### C BC, ADIFF, MG, GFR, ANEU, CMP ####[address] [place], [place] [address] ALT [Catalytic activity/Vol] 25 U/L Normal 16-63 [facility] ([place]) Comment on above: Performed By: #### C BC, ADIFF, MG, GFR, ANEU, CMP ####[address] [place], [place] [address] AST [Catalytic activity/Vol] 17 U/L Normal 10-40 [facility] ([place]) Comment on above: Performed By: #### C BC, ADIFF, MG, GFR, ANEU, CMP ####[address] [place], [place] [address] Bili Total 0.4 mg/dL Normal 0.2-1.0 [facility] ([place]) Comment on above: Result Comment: Use of this assay is not recommended for patients undergoing treatment with eltrombopag due to the potential for falsely elevated results. Performed By: #### C BC, ADIFF, MG, GFR, ANEU, CMP ####Jarred [address] [place], [place] [address] BUN/Creatinine Ratio 21 ratio Normal 7-27 [facility]) Comment on above: Performed By: #### C BC, ADIFF, MG, GFR, ANEU, CMP ####Jarred [address] [place], [place] [address] Total Protein 7.3 G/dL Normal 6.4-8.2 [facility] ([place]) Comment on above: Performed By: #### C BC, ADIFF, MG, GFR, ANEU, CMP ####Jarred [address] [place], [place] [address] CMPOrdered By: SYSTEM SYSTEM on 10-02-2023 Albumin/Globulin [Mass ratio] 0.8 {ratio} Low 1.1-2.5 AO ADM SS Comment on above: Performed By: #### C BC, ADIFF, MG, GFR, ANEU, CMP ####[address] [place], [place] [address] ALP [Catalytic activity/Vol] 99 U/L Normal 40-135 AO ADM SS Comment on above: Performed By: #### C BC, ADIFF, MG, GFR, ANEU, CMP ####Jarred [address] [place], [place] [address] Calcium [Mass/Vol] 8.8 mg/dL Normal 8.4-10.2 AO ADM SS Comment on above: Performed By: #### C BC, ADIFF, MG, GFR, ANEU, CMP ####[address] [place], [place] [address] Chloride [Moles/Vol] 105 mmol/L Normal 98-107 AO A DM SS Comment on above: Performed By: #### C BC, ADIFF, MG, GFR, ANEU, CMP ####Jarred [address] [place], [place] [address] CO2 [Moles/Vol] 24 mmol/L Normal 23-31 AO ADM SS Comment on above: Performed By: #### C BC, ADIFF, MG, GFR, ANEU, CMP ####Jarred [address] [place], [place] [address] Creatinine [Mass/Vol] 1.18 mg/dL Normal 0.70-1.30 AO ADM SS Comment on above: Performed By: #### C BC, ADIFF, MG, GFR, ANEU, CMP ####Jarred [address] [place], [place] [address] Electrolyte Balance 11.0 mEq/L Normal 4.0-15.0 AO AD M SS Comment on above: Performed By: #### C BC, ADIFF, MG, GFR, ANEU, CMP ####Jarred [address] [place], [place] [address] Globulin 4.1 G/dL Normal AO ADM SS Comment on above: Performed By: #### C BC, ADIFF, MG, GFR, ANEU, CMP ####Jarred [address] [place], [place] [address] Glucose [Mass/Vol] 80 mg/dL Normal 80-115 AO ADM SS Comment on above: Performed By: #### C BC, ADIFF, MG, GFR, ANEU, CMP ####Jarred [address] [place], [place] [address] Potassium [Moles/Vol] 3.9 mmol/L Normal 3.5-5.1 AO ADM SS Comment on above: Performed By: #### C BC, ADIFF, MG, GFR, ANEU, CMP ####Jarred [address] [place], [place] [address] Sodium [Moles/Vol] 140 mmol/L Normal 136-145 AO ADM SS Comment on above: Performed By: #### C BC, ADIFF, MG, GFR, ANEU, CMP ####[address] [address] Urea nitrogen [Mass/Vol] 25 mg/dL High 7-18 AO ADM SS Comment on above: Performed By: #### C BC, ADIFF, MG, GFR, ANEU, CMP ####[address] [place], [place] [address] FT4on 10-02-2023 Free T4 [Mass/Vol] 0.99 ng/dL Normal 0.76-1.46 [facility] ([place]) Comment on above: Performed By: #### F T4, LIPID, A1C, TSH #### [address] [place], [place] [address] LABORATORYOrdered By: SYSTEM SYSTEM on 10-02-2023 Albumin [...] 10-02-2023 Cholesterol [Mass/Vol] 182 mg/dL Normal 0-200 [facility] ([place]) Comment on above: Result Comment: Chol esterol Reference Interval: Less than 200 Desirable 200-239 Borderline high risk 240 and above High risk Performed By: #### F T4, LIPID, A1C, TSH #### Jarred [address] [address] Cholesterol in HDL [Mass/Vol] 37 mg/dL Low 40-60 [facility] ([place]) Comment on above: Performed By: #### F T4, LIPID, A1C, TSH #### Jarred [address] [address] Cholesterol in LDL [Mass/Vol] 80 mg/dL Normal 0-130 [facility] ([place]) Comment on above: Performed By: #### F T4, LIPID, A1C, TSH #### Jarred [address] [address] Triglyceride [Mass/Vol] 323 mg/dL High 0-150 [facility] ([place]) Comment on above: Result Comment: Trig lyceride Reference Interval: Less than 150 Normal 150-199 Borderline high risk 200-499 High risk 500 or higher Very high risk Performed By: #### F T4, LIPID, A1C, TSH #### Jarred [address] [address] MGOrdered By: SYSTEM SYSTEM on 10-02-2023 Magnesium [Mass/Vol] 1.9 mg/dL Normal 1.8-2.4 AO A DM SS Comment on above: Performed By: #### C BC, ADIFF, MG, GFR, ANEU, CMP ####Jarred [address] [place], [place] [address] MRI BRAIN W/O CONTRASTon MRI BRAIN W/O [...] 10/02/2023 8:38:30 AM Ordering Provider: CHITO Echevarria [facility] ([place]) TSHon 10-02-2023 TSH Qn 3.31 m[IU]/L Normal 0.36-3.74 [facility] ([place]) Comment on above: Performed By: #### F T4, LIPID, A1C, TSH #### [address] [place], [place] [address] .Auto Diffon 10-01-2023 Basophil, Absolute 0.1 10 3/mcL Normal 0.0-0.2 [facility] ([place]) Comment on above: Performed By: #### A JORGE, CMP, ADIFF, TROPHS, CBC, GFR, MDW, MG ####[address] [place], [place] [address] Basophils/100 WBC (Bld) 1.4 % Normal 0.0-2.5 [facility] ([place]) Comment on above: Performed By: #### A JORGE, CMP, ADIFF, TROPHS, CBC, GFR, MDW, MG ####Jarred [address] [place], [place] [address] Eosinophil, Absolute 0.4 10 3/mcL Normal 0.0-0.4 [facility] ([place]) Comment on above: Performed By: #### A JORGE, CMP, ADIFF, TROPHS, CBC, GFR, MDW, MG ####[address] [place], [place] [address] Eosinophils/100 WBC (Bld) 3.7 % Normal 0.0-7.0 [facility] ([place]) Comment on above: Performed By: #### A JORGE, CMP, ADIFF, TROPHS, CBC, GFR, MDW, MG ####[address] [place], [place] [address] Lymphocyte, Absolute 2.5 10 3/mcL Normal 0.8-3.9 [facility] ([place]) Comment on above: Performed By: #### A JORGE, CMP, ADIFF, TROPHS, CBC, GFR, MDW, MG ####[address] [place], [place] [address] Lymphocytes/100 WBC (Bld) 23.6 % Normal 10.0-50.0 [facility] ([place]) Comment on above: Performed By: #### A JORGE, CMP, ADIFF, TROPHS, CBC, GFR, MDW, MG ####[address] [place], [place] [address] Monocyte, Absolute 1.0 10 3/mcL Normal 0.2-1.0 [facility] ([place]) Comment on above: Performed By: #### A JORGE, CMP, ADIFF, TROPHS, CBC, GFR, MDW, MG ####[address] [place], [place] [address] Monocytes/100 WBC (Bld) 9.7 % Normal 1.7-13.0 [facility] ([place]) Comment on above: Performed By: #### A JORGE, CMP, ADIFF, TROPHS, CBC, GFR, MDW, MG ####[address] [place], [place] [address] Neutrophils/100 WBC (Bld) 61.6 % Normal 37.0-80.0 [facility] ([place]) Comment on above: Performed By: #### A JORGE, CMP, ADIFF, TROPHS, CBC, GFR, MDW, MG ####Jarred [address] [place], [place] [address] .GFRon 10-01-2023 GFR 59 ml/min/1.73sqm Normal [facility] ([place]) Comment on above: Result Comment: GFR Population [...] ADIFF, TROPHS, CBC, GFR, MDW, MG ####Jarred [address] [place], [place] [address] GFR Non- 48 ml/min/1.73sqm Normal [facility] ([place]) Comment on above: Result Comment: GFR Population [...] CMP, ADIFF, TROPHS, CBC, GFR, MDW, MG ####[address] [address] .MDWon 10-01-2023 Monocyte Distribution Width 18.06 Normal 0.00-20.00 [facility] ([place]) Comment on above: Result Comment: For ED adult patients suspected of sepsis, MDW<=20.0 does not rule out sepsis or risk of sepsis Performed By: #### A JORGE, CMP, ADIFF, TROPHS, CBC, GFR, MDW, MG ####[address] [address] .NEUABSon 10-01-2023 Neutrophil, Absolute 6.5 10 3/mcL High 2.9-6.2 [facility] ([place]) Comment on above: Performed By: #### A JORGE, CMP, ADIFF, TROPHS, CBC, GFR, MDW, MG ####[place] [id number] CBCon 10-01-2023 Erythrocyte distribution width (RBC) [Ratio] 18.8 % High 11.5-14.5 [facility] ([place]) Comment on above: Performed By: #### A JORGE, CMP, ADIFF, TROPHS, CBC, GFR, MDW, MG #### [address] [address] Hematocrit (Bld) [Volume fraction] 33.8 % Low 42.0-52.0 [facility] ([place]) Comment on above: Performed By: #### A JORGE, CMP, ADIFF, TROPHS, CBC, GFR, MDW, MG #### [address] [address] Hgb 11.0 G/dL Low 14.0-18.0 [facility] ([place]) Comment on above: Performed By: #### A JORGE, CMP, ADIFF, TROPHS, CBC, GFR, MDW, MG #### [address] [address] MCH (RBC) [Entitic mass] 24.3 pg Low 27.0-31.2 [facility] ([place]) Comment on above: Performed By: #### A JORGE, CMP, ADIFF, TROPHS, CBC, GFR, MDW, MG #### [address] [address] MCHC 32.5 G/dL Normal 31.8-35.4 [facility] ([place]) Comment on above: Performed By: #### A JORGE, CMP, ADIFF, TROPHS, CBC, GFR, MDW, MG #### [address] [address] MCV (RBC) [Entitic vol] 74.7 fL Low 80.0-94.0 A [facility] ([place]) Comment on above: Performed By: #### A JORGE, CMP, ADIFF, TROPHS, CBC, GFR, MDW, MG #### [address] [address] Platelet 250 10 3/mcL Normal 130-400 [facility] ([place]) Comment on above: Performed By: #### A JORGE, CMP, ADIFF, TROPHS, CBC, GFR, MDW, MG #### [address] [address] Platelet mean volume (Bld) [Entitic vol] 7.7 fL Normal 7.4-10.4 [facility] ([place]) Comment on above: Performed By: #### A JORGE, CMP, ADIFF, TROPHS, CBC, GFR, MDW, MG #### [address] [address] RBC 4.52 10 6/mcL Normal 4.04-6.13 [facility] ([place]) Comment on above: Performed By: #### A JORGE, CMP, ADIFF, TROPHS, CBC, GFR, MDW, MG #### [address] [address] WBC 10.6 10 3/mcL Normal 4.6-10.8 [facility] ([place]) Comment on above: Performed By: #### A JORGE, CMP, ADIFF, TROPHS, CBC, GFR, MDW, MG #### [place] [address] CMPon 10-01-2023 Albumin Level 3.4 G/dL Normal 3.4-4.8 [facility] ([place]) Comment on above: Performed By: #### A JORGE, CMP, ADIFF, TROPHS, CBC, GFR, MDW, MG ####Jarred [address] [place], [place] [address] Albumin/Globulin [Mass ratio] 0.8 {ratio} Low 1.1-2.5 [facility] ([place]) Comment on above: Performed By: #### A JORGE, CMP, ADIFF, TROPHS, CBC, GFR, MDW, MG ####[address] [place], [place] [address] ALP [Catalytic activity/Vol] 97 U/L Normal 40-135 [facility] ([place]) Comment on above: Performed By: #### A JORGE, CMP, ADIFF, TROPHS, CBC, GFR, MDW, MG ####[address] [place], [place] [address] ALT [Catalytic activity/Vol] 24 U/L Normal 16-63 [facility] ([place]) Comment on above: Performed By: #### A JORGE, CMP, ADIFF, TROPHS, CBC, GFR, MDW, MG ####[address] [place], [place] [address] AST [Catalytic activity/Vol] 19 U/L Normal 10-40 [facility] ([place]) Comment on above: Performed By: #### A JORGE, CMP, ADIFF, TROPHS, CBC, GFR, MDW, MG ####Jarred [address] [place], [place] [address] Bili Total 0.5 mg/dL Normal 0.2-1.0 [facility] ([place]) Comment on above: Result Comment: Use of this assay is not recommended for patients undergoing treatment with eltrombopag due to the potential for falsely elevated results. Performed By: #### A JORGE, CMP, ADIFF, TROPHS, CBC, GFR, MDW, MG ####[address] [place], [place] [address] BUN/Creatinine Ratio 20 ratio Normal 7-27 [facility] ([place]) Comment on above: Performed By: #### A JORGE, CMP, ADIFF, TROPHS, CBC, GFR, MDW, MG ####Jarred [address] [place], [place] [address] Calcium [Mass/Vol] 8.9 mg/dL Normal 8.4-10.2 [facility] ([place]) Comment on above: Performed By: #### A JORGE, CMP, ADIFF, TROPHS, CBC, GFR, MDW, MG ####Jarred [address] [place], [place] [address] Chloride [Moles/Vol] 104 mmol/L Normal 98-107 [facility] ([place]) Comment on above: Performed By: #### A JORGE, CMP, ADIFF, TROPHS, CBC, GFR, MDW, MG ####Jarred [address] [place], [place] [address] CO2 [Moles/Vol] 22 mmol/L Low 23-31 [facility] ([place]) Comment on above: Performed By: #### A JORGE, CMP, ADIFF, TROPHS, CBC, GFR, MDW, MG ####[address] [place], [place] [address] Creatinine [Mass/Vol] 1.48 mg/dL High 0.70-1.30 [facility] ([place]) Comment on above: Performed By: #### A JORGE, CMP, ADIFF, TROPHS, CBC, GFR, MDW, MG ####[address] [place], [place] [address] Electrolyte Balance 12.0 mEq/L Normal 4.0-15.0 [facility] ([place]) Comment on above: Performed By: #### A JORGE, CMP, ADIFF, TROPHS, CBC, GFR, MDW, MG ####J[address] [place], [place] [address] Globulin 4.3 G/dL Normal [facility] ([place]) Comment on above: Performed By: #### A JORGE, CMP, ADIFF, TROPHS, CBC, GFR, MDW, MG ####J[address] [place], [place] [address] Glucose [Mass/Vol] 151 mg/dL High 80-115 [facility] ([place]) Comment on above: Performed By: #### A JORGE, CMP, ADIFF, TROPHS, CBC, GFR, MDW, MG ####Jarred [address] [place], [place] [address] Potassium [Moles/Vol] 4.0 mmol/L Normal 3.5-5.1 [facility] ([place]) Comment on above: Performed By: #### A JORGE, CMP, ADIFF, TROPHS, CBC, GFR, MDW, MG ####J[address] [place], [place] [address] Sodium [Moles/Vol] 138 mmol/L Normal 136-145 [facility] ([place]) Comment on above: Performed By: #### A JORGE, CMP, ADIFF, TROPHS, CBC, GFR, MDW, MG ####J[address] [place], [place] [address] Total Protein 7.7 G/dL Normal 6.4-8.2 [facility] ([place]) Comment on above: Performed By: #### A JORGE, CMP, ADIFF, TROPHS, CBC, GFR, MDW, MG ####Jarred [address] [place], [place] [address] Urea nitrogen [Mass/Vol] 30 mg/dL High 7-18 [facility] ([place]) Comment on above: Performed By: #### A JORGE, CMP, ADIFF, TROPHS, CBC, GFR, MDW, MG ####Jarred [address] [place], [place] [address] LABORATORYOrdered By: Ronald العراقي on 10-01-2023 Appearance [...] ng/L Male: 0-76 ng/L Testing performed on pMDsoft using a homogeneous sandwich chemiluminescent immunoassay based on Sequella technology. Albumin BCP dye [Mass/Vol] 3.4 G/dL [...] ng/L Male: 0-76 ng/L Testing performed on pMDsoft using a homogeneous sandwich chemiluminescent immunoassay based on Sequella technology. Urea nitrogen [Mass/Vol] 30 mg/dL High 7 - 18 mg/dL AO ADM SS Urea nitrogen/Creatinine [Mass ratio] 20 ratio Normal 7 - 27 ratio AO ADM SS WBC (Bld) [#/Vol] 10.6 103/mcL Normal 4.6 - 10.8 10^3/mcL AO Workflow SS MGon 10-01-2023 Magnesium [Mass/Vol] 1.8 mg/dL Normal 1.8-2.4 [facility] ([place]) Comment on above: Performed By: #### A JORGE, CMP, ADIFF, TROPHS, CBC, GFR, MDW, MG ####Jarred [address] [place], [place] [address] TROPHSon 10-01-2023 High Sensitivity Troponin I 9 ng/L Normal 0-76 [facility] ([place]) Comment on above: Result Comment: High Sensitive Troponin I Reference Ranges: Female: 0-51 ng/L Male: 0-76 ng/L Testing performed on Zuffle EXL using a homogeneous sandwich chemiluminescent immunoassay based on Sequella technology. Performed By: #### [facility] #### Jarred [address] [place], [place] [address] High Sensitivity Troponin I 10 ng/L Normal 0-76 [facility] ([place]) Comment on above: Result Comment: High Sensitive Troponin I Reference Ranges: Female: 0-51 ng/L Male: 0-76 ng/L Testing performed on pMDsoft using a homogeneous sandwich chemiluminescent immunoassay based on Sequella technology. Performed By: #### A JORGE, CMP, ADIFF, TROPHS, CBC, GFR, MDW, MG ####[address] [place], [place] [address] UAon 10-01-2023 Color (U) Yellow Normal [facility] ([place]) Comment on above: Performed By: #### U A ####[address] [place], [place] [address] Glucose (U) [Mass/Vol] 500 mg/dL Abnormal Negative [facility] ([place]) Comment on above: Performed By: #### U A ####Jarred [address] [place], [place] [address] Ketones Ql (U) Negative Normal Negative [facility] ([place]) Comment on above: Performed By: #### U A ####J[address] [place], [place] [address] UA Appear Clear Normal Clear [facility] ([place]) Comment on above: Performed By: #### U A ####[address] [place], [place] [address] UA Blood Negative Normal Negative [facility] ([place]) Comment on above: Performed By: #### U A ####[address] [place], [place] [address] UA Leuk Est Negative Normal Negative [facility] ([place]) Comment on above: Performed By: #### U A ####[address] [place], [place] [address] UA Nitrite Negative Normal Negative [facility] ([place]) Comment on above: Performed By: #### U A ####[address] [place], [place] [address] UA pH 5.5 Normal 5.0 - 8.0 [facility] ([place]) Comment on above: Performed By: #### U A ####Jarred [address] [place], [place] [address] UA Protein Negative Normal Negative [facility] ([place]) Comment on above: Performed By: #### U A ####Jarred [address] [place], [place] [address] UA Spec Grav 1.020 Normal 1.015-1.02 5 [facility] ([place]) Comment on above: Performed By: #### U A ####J[address] [place], [place] [address] UA Specimen Type Void Normal [facility] ([place]) Comment on above: Performed By: #### U A ####[address] [place], [place] [address] UA Urobilinogen 0.2 E.U./dL Normal 0.2-1.0 [facility] ([place]) Comment on above: Performed By: #### U A ####Jarred [address] [place], [place] [address] Urobilinogen (U) [Mass/Vol] Negative Normal Negative [facility] ([place]) Comment on above: Performed By: #### U A ####Jarred [address] [place], [place] [address] XR CHEST 1 VIEWon 10-01-2023 XR CHEST [...] 10/01/2023 9:13:56 PM Ordering Provider: TITA Echevarria [facility] ([place]) Bilirubin, Directon 09-26-19 24 Bilirubin.direct [Mass/Vol] 0.12 mg/dL Normal 0.00-0.30 [facility] Comment on above: Order Comment: Y Performed By: #### L 506.0250, L3300.8000, L500.4100, L501.4700, L503.0105, L3130.0010 ####[facility] [address] [place], [address] CBC W/Diff, Automatedon 08-31 Absolute Lymph 1.81 X10 3/uL Normal 0.83-4.51 [facility] Comment on above: Performed By: #### L 100.0100, L500.4050, L501.5200, L501.9520, L506.0400 ####[facility] [address] [place], [address] Absolute Neut 5.8 X10 3/uL Normal 2.0-7.7 [facility] Comment on above: Performed By: #### L 100.0100, L500.4050, L501.5200, L501.9520, L506.0400 ####[facility] [address] [place], [address] Basophils/100 WBC (Bld) 0.6 % Normal 0-[address] [facility] Comment on above: Performed By: #### L 100.0100, L500.4050, L501.5200, L501.9520, L506.0400 ####[facility] [address] [place], [address] Eosinophils/100 WBC (Bld) 3.1 % Normal 0-5 [facility] Comment on above: Performed By: #### L 100.0100, L500.4050, L501.5200, L501.9520, L506.0400 ####[facility] [address] [place], [address] Erythrocyte distribution width (RBC) [Ratio] 17.8 % High 11.6-14.6 [facility] Comment on above: Performed By: #### L 100.0100, L500.4050, L501.5200, L501.9520, L506.0400 ####[facility] [address] [place], [address] Hematocrit (Bld) [Volume fraction] 35.7 % Low 40-54 [facility] Comment on above: Performed By: #### L 100.0100, L500.4050, L501.5200, L501.9520, L506.0400 ####[facility] [address] [place], [address] Hemoglobin (Bld) [Mass/Vol] 10.9 g/dL Low 13.0-16.5 [facility] Comment on above: Performed By: #### L 100.0100, L500.4050, L501.5200, L501.9520, L506.0400 ####[facility] [address] [place], [address] IG% 0.300 Normal 0.0-0.9 [facility] Comment on above: Result Comment: IG% - Immature Granulocytes (promyelocytes, myelocytes andmetamyelocytes) > 1% indicates that a LEFT SHIFT is Present. Performed By: #### L 100.0100, L500.4050, L501.5200, L501.9520, L506.0400 ####[facility] [address] [place], [address] Lymphocytes/100 WBC (Bld) 20.9 % Normal 19-41 [facility] Comment on above: Performed By: #### L 100.0100, L500.4050, L501.5200, L501.9520, L506.0400 ####[facility] [address] [place], [address] MCH (RBC) [Entitic mass] 23.3 pg Low 27.0-32.0 [facility] Comment on above: Performed By: #### L 100.0100, L500.4050, L501.5200, L501.9520, L506.0400 ####[facility] [address] [place], [address] MCHC (RBC) [Mass/Vol] 30.5 g/dL Low 32-36 [facility] Comment on above: Performed By: #### L 100.0100, L500.4050, L501.5200, L501.9520, L506.0400 ####[facility] [address] [place], [address] MCV (RBC) [Entitic vol] 76.4 fL Low 80-94 [facility] Comment on above: Performed By: #### L 100.0100, L500.4050, L501.5200, L501.9520, L506.0400 ####[facility] [address] [place], [address] Monocytes/100 WBC (Bld) 8.0 % Normal 0-[address] [facility] Comment on above: Performed By: #### L 100.0100, L500.4050, L501.5200, L501.9520, L506.0400 ####[facility] [address] [place], [address] Neutrophils/100 WBC (Bld) 67.1 % Normal 47-70 [facility] Comment on above: Performed By: #### L 100.0100, L500.4050, L501.5200, L501.9520, L506.0400 ####[facility] [address] [place], [address] Nucleated RBC (Bld) [#/Vol] 0 10*3/uL Normal 0-5 [facility] Comment on above: Performed By: #### L 100.0100, L500.4050, L501.5200, L501.9520, L506.0400 ####[facility] [address] [place], [address] Platelet mean volume (Bld) [Entitic vol] 10.1 fL Normal 6.2-12.0 [facility] Comment on above: Performed By: #### L 100.0100, L500.4050, L501.5200, L501.9520, L506.0400 ####[facility] [address] [place], [address] Platelets (Bld) [#/Vol] 252 10*3/uL Normal 150-450 [facility] Comment on above: Performed By: #### L 100.0100, L500.4050, L501.5200, L501.9520, L506.0400 ####[facility] [address] [place], [address] RBC (Bld) [#/Vol] 4.67 10*6/uL Normal 4.6-6.2 [facility] Comment on above: Performed By: #### L 100.0100, L500.4050, L501.5200, L501.9520, L506.0400 ####[facility] [address] [place], [address] RDW SD 48.3 fl High 35.1-43.9 [facility] Comment on above: Performed By: #### L 100.0100, L500.4050, L501.5200, L501.9520, L506.0400 ####[facility] [address] [place], [address] WBC (Bld) [#/Vol] 8.6 10*3/uL Normal 4.4-11.0 [facility] Comment on above: Performed By: #### L 100.0100, L500.4050, L501.5200, L501.9520, L506.0400 ####[facility] [address] [place], [address] Comprehensive Metabolic Prof ilon 09-26-2023 Albumin [Mass/Vol] 3.4 g/dL Normal 3.2-5.0 [facility] Comment on above: Order Comment: DR RONALD WRAY GETS TSH LIVER AND T4F Performed By: #### L 100.0100, L500.4050, L501.5200, L501.9520, L506.0400 ####[facility] [address] [place], [address] Albumin/Globulin [Mass ratio] 0.7 {ratio} Low 0.9-2.4 [facility] Comment on above: Order Comment: DR RONALD WRAY GETS TSH LIVER AND T4F Performed By: #### L 100.0100, L500.4050, L501.5200, L501.9520, L506.0400 ####[facility] [address] [place], [address] ALK P 98 U/L Normal 45-117 [facility] Comment on above: Order Comment: DR RONALD WRAY GETS TSH LIVER AND T4F Performed By: #### L 100.0100, L500.4050, L501.5200, L501.9520, L506.0400 ####[facility] [address] [place], [address] ALT [Catalytic activity/Vol] 18 U/L Normal 16-61 [facility] Comment on above: Order Comment: DR RONALD WRAY GETS TSH LIVER AND T4F Performed By: #### L 100.0100, L500.4050, L501.5200, L501.9520, L506.0400 ####[facility] [address] [place], [address] AST [Catalytic activity/Vol] 18 U/L Normal 15-37 [facility] Comment on above: Order Comment: DR RONALD WRAY GETS TSH LIVER AND T4F Performed By: #### L 100.0100, L500.4050, L501.5200, L501.9520, L506.0400 ####[facility] [address] [place], [address] Bilirubin [Mass/Vol] 0.40 mg/dL Normal 0.20-1.00 [facility] Comment on above: Order Comment: DR RONALD WRAY GETS TSH LIVER AND T4F Result Comment: For patients on eltrombopag therapy, use of Dimension [place] TBIL is not recommended. Performed By: #### L 100.0100, L500.4050, L501.5200, L501.9520, L506.0400 ####[facility] [address] [place], [address] BUN/CRE 25.5 RATIO High 10-20 [facility] Comment on above: Order Comment: DR RONALD WRAY GETS TSH LIVER AND T4F Performed By: #### L 100.0100, L500.4050, L501.5200, L501.9520, L506.0400 ####[facility] [address] [place], [address] CA,Total 8.8 mg/dL Normal 8.5-10.1 [facility] Comment on above: Order Comment: DR RONALD WRAY GETS TSH LIVER AND T4F Performed By: #### L 100.0100, L500.4050, L501.5200, L501.9520, L506.0400 ####[facility] [address] [place], [address] Chloride [Moles/Vol] 105 mmol/L Normal 98-107 [facility] Comment on above: Order Comment: DR RONALD WRAY GETS TSH LIVER AND T4F Performed By: #### L 100.0100, L500.4050, L501.5200, L501.9520, L506.0400 ####[facility] [address] [place], [address] CO2 [Moles/Vol] 18.0 mmol/L Low 21.0-32.0 [facility] Comment on above: Order Comment: DR RONALD WRAY GETS TSH LIVER AND T4F Performed By: #### L 100.0100, L500.4050, L501.5200, L501.9520, L506.0400 ####[facility] [address] [place], [address] Creatinine [Mass/Vol] 1.37 mg/dL High 0.70-1.30 [facility] Comment on above: Order Comment: DR RONALD WRAY GETS TSH LIVER AND T4F Result Comment: The validity of the calculated GFR GFRAA in patients over70 years has not been determined. Clinical correlation isessential. Performed By: #### L 100.0100, L500.4050, L501.5200, L501.9520, L506.0400 ####[facility] [address] [place], [address] EST GFR - AA 68 mL/min Normal >60 [facility] Comment on above: Order Comment: DR RONALD WRAY GETS TSH LIVER AND T4F Result Comment: Afri can [place] GFR Calc Performed By: #### L 100.0100, L500.4050, L501.5200, L501.9520, L506.0400 ####[facility] [address] [place], [address] GAP 12 Normal 5-15 [facility] Comment on above: Order Comment: DR RONALD WRAY GETS TSH LIVER AND T4F Performed By: #### L 100.0100, L500.4050, L501.5200, L501.9520, L506.0400 ####[facility] [address] [place], [address] GFR/1.73 sq M.predicted among non-blacks MDRD (S/P/Bld) [Vol rate/Area] 56 mL/min/{1.73_m2} Low >60 [facility] Comment on above: Order Comment: DR RONALD WRAY GETS TSH LIVER AND T4F Result Comment: Non- GFR Calc Performed By: #### L 100.0100, L500.4050, L501.5200, L501.9520, L506.0400 ####[facility] [address] [place], [address] Globulin (S) [Mass/Vol] 4.9 g/dL High 2.2-4.2 [facility] Comment on above: Order Comment: DR RONALD WRAY GETS TSH LIVER AND T4F Performed By: #### L 100.0100, L500.4050, L501.5200, L501.9520, L506.0400 ####[facility] [address] [place], [address] Glucose [Mass/Vol] 260 mg/dL High 74-106 [facility] Comment on above: Order Comment: DR RONALD WRAY GETS TSH LIVER AND T4F Result Comment: Gluc ose result greater than or equal to 200 mg/dLsuggests DIABETES MELLITUS per A.D.A. criteria. Performed By: #### L 100.0100, L500.4050, L501.5200, L501.9520, L506.0400 ####[facility] [address] [place], [address] Potassium [Moles/Vol] 4.2 mmol/L Normal 3.5-5.1 [facility] Comment on above: Order Comment: DR RONALD WRAY GETS TSH LIVER AND T4F Performed By: #### L 100.0100, L500.4050, L501.5200, L501.9520, L506.0400 ####[facility] [address] [place], [address] Sodium [Moles/Vol] 135 mmol/L Low 136-145 [facility] Comment on above: Order Comment: DR RONALD WRAY GETS TSH LIVER AND T4F Performed By: #### L 100.0100, L500.4050, L501.5200, L501.9520, L506.0400 ####[facility] [address] [place], [address] T PROT 8.3 g/dL High 6.4-8.2 [facility] Comment on above: Order Comment: DR RONALD WRAY GETS TSH LIVER AND T4F Performed By: #### L 100.0100, L500.4050, L501.5200, L501.9520, L506.0400 ####[facility] [address] [place], [address] Urea nitrogen [Mass/Vol] 35 mg/dL High 7-18 [facility] Comment on above: Order Comment: DR RONALD WRAY GETS TSH LIVER AND T4F Performed By: #### L 100.0100, L500.4050, L501.5200, L501.9520, L506.0400 ####[facility] [address] [place], [address] Folates, (Folic Acid)on 08-31 FOLATES 4.90 ng/mL Normal 3.1-55.4 [facility] Comment on above: Order Comment: Y Result Comment: Slig ht Hemolysis, Result may be falsely increased. Performed By: #### L 506.0250, L3300.8000, L500.4100, L501.4700, L503.0105, L3130.0010 ####[facility] [address] [place], [address] Lipid Profileon 09-26-2023 Cholesterol [Mass/Vol] 156 mg/dL Normal 200 [facility] Comment on above: Order Comment: Y Result Comment: <200 mg/dL Desirable 200-240 mg/dL Borderline >240 mg/dL High Risk Performed By: #### L 506.0250, L3300.8000, L500.4100, L501.4700, L503.0105, L3130.0010 ####[facility] [address] [place], [address] Cholesterol in HDL [Mass/Vol] 31 mg/dL Low [facility] Comment on above: Order Comment: Y Result Comment: The drugs N-Acetylcysteine and Metamizole may falselydepress this assay. Reference Range HDL <40 mg/dL Low HDL Cholesterol HDL >or= 60 mg/dL High HDL Cholesterol Performed By: #### L 506.0250, L3300.8000, L500.4100, L501.4700, L503.0105, L3130.0010 ####[facility] [address] [place], [place], [id number] LDL TNP Normal 0-130 [facility] Comment on above: Order Comment: Y Performed By: #### L 506.0250, L3300.8000, L500.4100, L501.4700, L503.0105, L3130.0010 ####[facility] [address] [place], [address] Triglyceride [Mass/Vol] 418 mg/dL High [facility] Comment on above: Order Comment: Y [...] L 506.0250, L3300.8000, L500.4100, L501.4700, L503.0105, L3130.0010 ####[facility] [address] [place], [place], [id number] VLDL TNP Normal 5-40 [facility] Comment on above: Order Comment: Y Performed By: #### L 506.0250, L3300.8000, L500.4100, L501.4700, L503.0105, L3130.0010 ####[facility] [address] [place], [address] Magnesiumon 09-26-2023 Magnesium [Mass/Vol] 2.1 mg/dL Normal 1.6-2.6 [facility] Comment on above: Order Comment: DR RONALD WRAY GETS TSH LIVER AND T4F Performed By: #### L 100.0100, L500.4050, L501.5200, L501.9520, L506.0400 ####[facility] [address] [place], [address] T4 Free Directon 09-26-2023 T4 FREE DIRECT 1.22 ng/dL Normal 0.76-1.46 [facility] Comment on above: Order Comment: DR RONALD WRAY GETS TSH LIVER AND T4F Performed By: #### L 100.0100, L500.4050, L501.5200, L501.9520, L506.0400 ####[facility] [address] [place], [address] Thyroid Stim Hormone (TSH)on 09-26-2023 TSH 1.67 uIU/mL Normal 0.358-3.74 [facility] Comment on above: Order Comment: DR RONALD WRAY GETS TSH LIVER AND T4F Performed By: #### L 100.0100, L500.4050, L501.5200, L501.9520, L506.0400 ####[facility] [address] [place], [address] Vitamin B12on 09-26-2023 Cobalamin (Vitamin B12) [Mass/Vol] 331 pg/mL Normal 211-911 [facility] Comment on above: Performed By: #### L 506.0250, L3300.8000, L500.4100, L501.4700, L503.0105, L3130.0010 ####[facility] [address] [place], [address] Pulmonary Visit Reporton Pulmonary Visit Report Normal [facility] L/S Spine Min 4 Viewson 08-31 L/S Spine Min 4 Views Normal [facility] Thoracic Spine 3 Viewson Thoracic Spine 3 Views Normal [facility] Absolute lymphocyte countOrd ered By: Fany Diaz on 08-05-2023 Lymphocytes Auto (Unsp spec) [#/Vol] 2.02 10*3/uL 0.83-4.51 [facility] Automated lymphocyte count a s percentage of total leukocytesOrdered By: Roxichristianacareoneil Diaz on 08-05-2023 Lymphocytes/100 WBC Auto (Unsp spec) 22.3 % 19-41 [facility] Basophil percentageOrdered B y: [facility] Infirmarychloe on 08-05-2023 Basophil percentage 3.9 mg/dL 2.5-4.9 [facility] Basophils/100 WBC (Bld) 0.9 % 0-[address] [facility] Chloride [Moles/Vol] 108 mmol/L 98-107 [facility] Eosinophils/100 WBC (Bld) 3.2 % 0-5 [facility] Glucose [Mass/Vol] 158 mg/dL 74-106 [facility] Comment on above: Fasting Glucose resu lt greater than or equal to 126 mg/dL suggests DIABETES MELLITUS per A.D.A. criteria. Hemoglobin (Bld) [Mass/Vol] 11.6 g/dL 13.0-16.5 [facility] Monocytes/100 WBC (Bld) 9.6 % 0-[address] [facility] Neutrophils (Bld) [#/Vol] 5.8 10*3/uL 2.0-7.7 [facility] Neutrophils/100 WBC (Bld) 63.6 % 47-70 [facility] Potassium [Moles/Vol] 4.1 mmol/L 3.5-5.1 [facility] Sodium [Moles/Vol] 136 mmol/L 136-145 [facility] WBC (Bld) [#/Vol] 9.1 10*3/uL 4.4-11.0 [facility] Determination of erythrocyte mean corpuscular volume (MCV)Ordered By: Fany Diaz on 08-05-2023 MCV (RBC) [Entitic vol] 77.0 fL 80-[address] [facility] Erythrocyte distribution wid th ratioOrdered By: Fany Diaz on 08-05-2023 Erythrocyte distribution width (RBC) [Ratio] 18.6 % 11.6-14.6 [facility] Erythrocyte distribution wid th standard deviationOrdered By: Fany Diaz on 08-05-2023 Erythrocyte distribution width (RBC) [Entitic vol] 51.4 fL 35.1-43.9 [facility] Hematocrit Auto (Bld) [Volum e fraction]Ordered By: Fany Diaz on 08-05-2023 Hematocrit (Bld) [Volume fraction] 38.1 % 40-54 [facility] Immature granulocytes/100 WB C Auto (Bld)Ordered By: Fany Diaz on 08-05-2023 Immature granulocytes/100 WBC (Bld) 0.400 % 0.0-0.9 [facility] Comment on above: IG% - Immature Granu locytes (promyelocytes, myelocytes and metamyelocytes) > 1% indicates that a LEFT SHIFT is Present. Iron measurement (mass/mass) Ordered By: Fany Diaz on 08-05-2023 Iron (Unsp spec) [Mass/Mass] 42 ug/dL 65-175 [facility] - Chemistry and C hemistry - challengeOrdered By: Fany Diaz on 08-05-2023 CO2 [Moles/Vol] 20.0 mmol/L 21.0-32.0 [facility] Ferritin [Mass/Vol] 20 ng/mL 26-388 [facility] Urea nitrogen/Creatinine [Mass ratio] 25.5 mg/mg 10-20 [facility] - Hematology and Cell countsOrdered By: Fany Diaz on 08-05-2023 MCH (RBC) [Entitic mass] 23.4 pg 27.0-32.0 [facility] MCHC (RBC) [Mass/Vol] 30.4 g/dL 32-36 [facility] Nucleated RBC/100 WBC (Bld) [Ratio] 0 % 0-5 [facility] Platelet mean volume (Bld) [Entitic vol] 9.8 fL 6.2-12.0 [facility] Platelets (Bld) [#/Vol] 277 10*3/uL 150-450 [facility] No Panel InformationOrdered By: Fany Diaz on 08-05-2023 Estimated GFR (MDRD) Amer 88 mL/min >60 [facility] Comment on above: GFR Calc Estimated GFR (MDRD) Non-Af Amer 73 mL/min >60 [facility] Comment on above: Non- GFR Calc Parathyroid Hormone (Intact) 71.4 pg/mL 18.4-80.1 [facility] Total Iron Binding Capacity 383 ug/dL 250-450 [facility] RBC Auto (Bld) [#/Vol]Ordere d By: Fany Diaz on 08-05-2023 RBC (Bld) [#/Vol] 4.95 10*6/uL 4.6-6.2 [facility] Serum or plasma calcium grazyna urement (mass/volume)Ordered By: Fany Diaz on 08-05-2023 Calcium [Mass/Vol] 9.3 mg/dL 8.5-10.1 [facility] Serum or plasma creatinine m easurement (mass/volume)Ordered By: Fany Diaz on 08-05-2023 Creatinine [Mass/Vol] 1.10 mg/dL 0.70-1.30 [facility] Comment on above: The validity of the calculated GFR & GFRAA in patients over 70 years has not been determined. Clinical correlation is essential. Serum or plasma iron saturat ion measurement (mass fraction)Ordered By: Fany Diaz on 08-05-2023 Iron saturation [Mass fraction] 11.0 % 15.0-55.0 [facility] Serum or plasma urea nitroge n measurement (mass/volume)Ordered By: Fany Diaz on 08-05-2023 Urea nitrogen [Mass/Vol] 28 mg/dL 7-18 [facility] Serum or plasma uric acid me asurement (mass/volume)Ordered By: Fany Diaz on 08-05-2023 Urate [Mass/Vol] 7.3 mg/dL 3.5-7.2 [facility] Comment on above: The drugs N-Acetylcy steine and Metamizole may falsely depress this assay. Thin prep Papanicolaou smear with manual screeningOrdered By: Fany Diaz on 08-05-2023 Protein (U) [Mass/Vol] 25.0 mg/dL 0.0-11.8 [facility] Thin prep Papanicolaou smear with manual screening 3.3 g/dL 3.2-5.0 [facility] Urine creatinine measurement (mass/volume)Ordered By: Fany Diaz on 08-05-2023 Creatinine (U) [Mass/Vol] 67.40 mg/dL NO RANGE EST. [facility] Urine protein/creatinine mas s ratioOrdered By: [facility] on 08-05-2023 Protein/Creatinine (U) [Mass ratio] 371 mg/g CRE 0-200 [facility] Basophil percentageOrdered B y: Francois Valiente on 06-06-2023 Creatinine [Mass/Vol] 1.4 mg/dL 0.70-1.30 [facility] Laboratory - Chemistry and C hemistry - challengeOrdered By: Francois Valiente on 06-06-2023 GFR/1.73 sq M.predicted among non-blacks MDRD (S/P/Bld) [Vol rate/Area] 55.0000 mL/min/{1.73_m2} >60 [facility] - Hematology and Cell countson 05-20-2023 HbA1c (Bld) [Mass fraction] 7.5 % 4.2-6.3 [facility] Basophil percentageOrdered B y: Oren Sky on 04-25-2023 Bilirubin [Mass/Vol] 0.50 mg/dL 0.20-1.00 [facility] Comment on above: For patients on eltr ombopag therapy, use of Dimension [place] TBIL is not recommended. Chloride [Moles/Vol] 108 mmol/L 98-107 [facility] Glucose [Mass/Vol] 157 mg/dL 74-106 [facility] Comment on above: Fasting Glucose resu lt greater than or equal to 126 mg/dL suggests DIABETES MELLITUS per A.D.A. criteria. Hemoglobin (Bld) [Mass/Vol] 11.5 g/dL 13.0-16.5 [facility] Potassium [Moles/Vol] 3.9 mmol/L 3.5-5.1 [facility] Protein [Mass/Vol] 8.4 g/dL 6.4-8.2 [facility] Sodium [Moles/Vol] 135 mmol/L 136-145 [facility] WBC (Bld) [#/Vol] 10.8 10*3/uL 4.4-11.0 [facility] Determination of erythrocyte mean corpuscular volume (MCV)Ordered By: Oren Sky on 04-25-2023 MCV (RBC) [Entitic vol] 76.0 fL 80-[address] [facility] Erythrocyte distribution wid th ratioOrdered By: Oren Sky on 04-25-2023 Erythrocyte distribution width (RBC) [Ratio] 18.6 % 11.6-14.6 [facility] Erythrocyte distribution wid th standard deviationOrdered By: Oren Sky on 04-25-2023 Erythrocyte distribution width (RBC) [Entitic vol] 48.6 fL 35.1-43.9 [facility] Hematocrit Auto (Bld) [Volum e fraction]Ordered By: Oren Sky on 04-25-2023 Hematocrit (Bld) [Volume fraction] 38.0 % 40-54 [facility] - Chemistry and C hemistry - challengeOrdered By: Oren Sky on 04-25-2023 Albumin/Globulin [Mass ratio] 0.7 {ratio} 0.9-2.4 [facility] ALP [Catalytic activity/Vol] 102 U/L 45-117 [facility] ALT [Catalytic activity/Vol] 27 U/L 16-61 [facility] CO2 [Moles/Vol] 18.0 mmol/L 21.0-32.0 [facility] Globulin (S) [Mass/Vol] 4.9 g/dL 2.2-4.[address] [facility] Natriuretic peptide B (Bld) [Mass/Vol] 13.4 pg/mL 0-100 [facility] Urea nitrogen/Creatinine [Mass ratio] 19.2 mg/mg 10-20 [facility] - Hematology and Cell countsOrdered By: Oren Sky on 04-25-2023 MCH (RBC) [Entitic mass] 23.0 pg 27.0-32.0 [facility] MCHC (RBC) [Mass/Vol] 30.3 g/dL 32-36 [facility] Platelets (Bld) [#/Vol] 289 10*3/uL 150-450 [facility] No Panel InformationOrdered By: Oren Sky on 04-25-2023 Estimated GFR (MDRD) Amer 73 mL/min >60 [facility] Comment on above: GFR Calc Estimated GFR (MDRD) Non-Af Amer 60 mL/min >60 [facility] Comment on above: Non- GFR Calc Platelet mean volume Deon-Ec ker (Bld) [Entitic vol]Ordered By: Oren Sky on 04-25-2023 Platelet mean volume (Bld) [Entitic vol] 9.7 fL 6.2-12.0 [facility] RBC Auto (Bld) [#/Vol]Ordere d By: Oren Sky on 04-25-2023 RBC (Bld) [#/Vol] 5.00 10*6/uL 4.6-6.2 [facility] Serum or plasma calcium grazyna urement (mass/volume)Ordered By: Oren Sky on 04-25-2023 Calcium [Mass/Vol] 9.2 mg/dL 8.5-10.1 [facility] Serum or plasma creatinine m easurement (mass/volume)Ordered By: Oren Sky on 04-25-2023 Creatinine [Mass/Vol] 1.30 mg/dL 0.70-1.30 [facility] Comment on above: The validity of the calculated GFR & GFRAA in patients over 70 years has not been determined. Clinical correlation is essential. Serum or plasma thyroid stim ulating hormone (TSH) measurement (units/volume)Ordered By: Oren Sky on 04-25-2023 TSH Qn 1.74 uIU/mL 0.358-3.74 [facility] Serum or plasma urea nitroge n measurement (mass/volume)Ordered By: Oren Sky on 04-25-2023 Urea nitrogen [Mass/Vol] 25 mg/dL 7-18 [facility] Thin prep Papanicolaou smear with manual screeningOrdered By: Oren Sky on 04-25-2023 Thin prep Papanicolaou smear with manual screening 3.5 g/dL 3.2-5.0 [facility] Thin prep Papanicolaou smear with manual screening 17 U/L 15-37 [facility] Thin prep Papanicolaou smear with manual screening 9 5-15 [facility] - Chemistry and C hemistry - challengeOrdered By: Coreen Gerardo on 02-26-2023 Free T4 [Mass/Vol] 0.85 ng/dL 0.76-1.46 [facility] No Panel InformationOrdered By: Coreen Gerardo on 02-26-2023 Thyroid Stimulating Hormone (TSH) 8.76 uIU/mL 0.358-3.74 [facility] Basophil percentageOrdered B y: Fany Diaz on 01-15-2023 Basophil percentage 2.8 mg/dL 2.5-4.9 [facility] Chloride [Moles/Vol] 107 mmol/L 98-107 [facility] Glucose [Mass/Vol] 74 mg/dL 74-106 [facility] Potassium [Moles/Vol] 3.2 mmol/L 3.5-5.1 [facility] Sodium [Moles/Vol] 139 mmol/L 136-145 [facility] - Chemistry and C hemistry - challengeOrdered By: Fany Diaz on 01-15-2023 CO2 [Moles/Vol] 24.0 mmol/L 21.0-32.0 [facility] Urea nitrogen/Creatinine [Mass ratio] 10.2 mg/mg 10-20 [facility] No Panel InformationOrdered By: Fany Diaz on 01-15-2023 Estimated GFR (MDRD) Amer 74 mL/min >60 [facility] Comment on above: GFR Calc Estimated GFR (MDRD) Non-Af Amer 61 mL/min >60 [facility] Comment on above: Non- GFR Calc Serum or plasma albumin grazyna urement (mass/volume)Ordered By: Fany Diaz on 01-15-2023 Albumin [Mass/Vol] 3.2 g/dL 3.2-5.0 [facility] Serum or plasma calcium grazyna urement (mass/volume)Ordered By: Fany Diaz on 01-15-2023 Calcium [Mass/Vol] 8.7 mg/dL 8.5-10.1 [facility] Serum or plasma creatinine m easurement (mass/volume)Ordered By: [facility] on 01-15-2023 Creatinine [Mass/Vol] 1.28 mg/dL 0.70-1.30 [facility] Comment on above: The validity of the calculated GFR & GFRAA in patients over 70 years has not been determined. Clinical correlation is essential. Serum or plasma urea nitroge n measurement (mass/volume)Ordered By: [facility] on 01-15-2023 Urea nitrogen [Mass/Vol] 13 mg/dL 7-18 [facility] Urine creatinine measurement (mass/volume)Ordered By: [facility] on 01-15-2023 Creatinine (U) [Mass/Vol] 73.90 mg/dL NO RANGE EST. [facility] Urine protein measurement (m ass/volume)Ordered By: [facility] on 01-15-2023 Protein (U) [Mass/Vol] 16.2 mg/dL 0.0-11.8 [facility] Urine protein/creatinine mas s ratioOrdered By: [facility] on 01-15-2023 Protein/Creatinine (U) [Mass ratio] 219 mg/g CRE 0-200 [facility] Absolute lymphocyte countOrd ered By: [facility] on 12-31-2022 Lymphocytes Auto (Unsp spec) [#/Vol] 1.76 10*3/uL 0.83-4.51 [facility] Basophil percentageOrdered B y: [facility] on 12-31-2022 Basophil percentage 3.7 mg/dL 2.5-4.9 [facility] Basophils/100 WBC (Bld) 0.6 % 0-1 [facility] Chloride [Moles/Vol] 107 mmol/L 98-107 [facility] Eosinophils/100 WBC (Bld) 2.3 % 0-5 [facility] Glucose [Mass/Vol] 117 mg/dL 74-106 [facility] Comment on above: Fasting Glucose resu lt from 100 to 125 mg/dL suggests IMPAIRED HOMEOSTASIS per A.D.A. criteria. Neutrophils (Bld) [#/Vol] 7.8 10*3/uL 2.0-7.7 [facility] Neutrophils/100 WBC (Bld) 72.0 % 47-70 [facility] Potassium [Moles/Vol] 3.8 mmol/L 3.5-5.1 [facility] Sodium [Moles/Vol] 138 mmol/L 136-145 [facility] WBC (Bld) [#/Vol] 10.9 10*3/uL 4.4-11.0 [facility] Bilirubin Test strip Ql (U)O rdered By: Fany Diaz on 12-31-2022 Bilirubin Ql (U) Negative Negative [facility] Blood erythrocytes count (nu mber/volume)Ordered By: Fany Diaz on 12-31-2022 RBC (Bld) [#/Vol] 4.20 10*6/uL 4.6-6.2 [facility] Blood hemoglobin measurement (mass/volume)Ordered By: Fany Diaz on 12-31-2022 Hemoglobin (Bld) [Mass/Vol] 10.8 g/dL 13.0-16.5 [facility] Blood lymphocytes/100 leukoc ytesOrdered By: Fayn Diaz on 12-31-2022 Lymphocytes/100 WBC (Bld) 16.1 % 19-41 [facility] Blood monocytes/100 leukocyt esOrdered By: Fany Diaz on 12-31-2022 Monocytes/100 WBC (Bld) 8.5 % 0-[address] [facility] Blood platelet mean volumeOr dered By: Fany Diaz on 12-31-2022 Platelet mean volume (Bld) [Entitic vol] 10.1 fL 6.2-12.0 [facility] Determination of erythrocyte mean corpuscular volume (MCV)Ordered By: Fany Diaz on 12-31-2022 MCV (RBC) [Entitic vol] 82.4 fL 80-[address] [facility] Hematocrit Auto (Bld) [Volum e fraction]Ordered By: Fany Diaz on 12-31-2022 Hematocrit (Bld) [Volume fraction] 34.6 % 40-54 [facility] Iron measurement (mass/mass) Ordered By: Fany Diaz on 12-31-2022 Iron (Unsp spec) [Mass/Mass] 37 ug/dL 65-175 [facility] Ketones Test strip Ql (U)Ord ered By: Fany Diaz on 12-31-2022 Ketones Ql (U) Negative Negative [facility] - Chemistry and C hemistry - challengeOrdered By: Fany Diaz on 12-31-2022 Albumin [Mass/Vol] 3.4 g/dL 2.9-4.4 [facility] CO2 [Moles/Vol] 22.0 mmol/L 21.0-32.0 [facility] Urea nitrogen/Creatinine [Mass ratio] 21.4 mg/mg 10-20 [facility] - Hematology and Cell countsOrdered By: Fany Diaz on 12-31-2022 Erythrocyte distribution width (RBC) [Entitic vol] 50.4 fL 35.1-43.9 [facility] Erythrocyte distribution width (RBC) [Ratio] 16.8 % 11.6-14.6 [facility] Immature granulocytes/100 WBC (Bld) 0.500 % 0.0-0.9 [facility] Comment on above: IG% - Immature Granu locytes (promyelocytes, myelocytes and metamyelocytes) > 1% indicates that a LEFT SHIFT is Present. MCH (RBC) [Entitic mass] 25.7 pg 27.0-32.0 [facility] Nucleated RBC/100 WBC (Bld) [Ratio] 0 % 0-5 [facility] MCHC Auto (RBC) [Mass/Vol]Or dered By: Fany Diaz on 12-31-2022 MCHC (RBC) [Mass/Vol] 31.2 g/dL 32-36 [facility] Nitrite Test strip Ql (U)Ord ered By: Fany Diaz on 12-31-2022 Nitrite Ql (U) Negative Negative [facility] No Panel InformationOrdered By: Fany Diaz on 12-31-2022 Addendum Document Comment . [facility] Comment on above: The SPE pattern refl ects a polyclonal increase in gammaglobulin. Hypergammaglobulinemia is found in a wide varietyof infectious, non-infectious, and autoimmune diseasestates. Evidence of monoclonal protein is not apparent. Hrhtd-4-Gwhffraoz 0.2 g/dL 0.0-0.4 [facility] Zlfzk-4-Gpwkaktmk 0.9 g/dL 0.4-1.0 [facility] Estimated GFR (MDRD) Amer 75 mL/min >60 [facility] Comment on above: GFR Calc Estimated GFR (MDRD) Non-Af Amer 62 mL/min >60 [facility] Comment on above: Non- GFR Calc Gamma Globulins 1.9 g/dL 0.4-1.8 [facility] Total Iron Binding Capacity 355 ug/dL 250-450 [facility] Vitamin D 25-Hydroxy 33.7 ng/mL [facility] Comment on above: Vitamin D 25(OH) Sta tus Range Deficiency <20 ng/mL (50nmol/L) Insufficiency 20 - 30 ng/mL (50 - 75 nmol/L) Sufficiency 30 - 100 ng/mL (75 - 250 nmol/L) Toxicity >100 ng/mL (>250 nmol/L) Platelets bldOrdered By: Roxi Diaz on 12-31-2022 Platelets (Bld) [#/Vol] 265 10*3/uL 150-450 [facility] Protein Fractions Elph [Inte rp]Ordered By: Fany Diaz on 12-31-2022 Protein Fractions [Interp] Comment . [facility] Comment on above: Protein electrophore sis scan will follow via computer,mail, or site promotion agent delivery. Protein Test strip Ql (U)Ord ered By: Fany Diaz on 12-31-2022 Protein Ql (U) 15 mg/dl Negative [facility] Serum albumin to globulin ra balaji by protein electrophoresisOrdered By: Fany Diaz on 12-31-2022 Albumin/Globulin Elph [Mass ratio] 0.8 0.7-1.7 [facility] Serum globulin measurement ( mass/volume)Ordered By: Fany Diaz on 12-31-2022 Globulin (S) [Mass/Vol] 4.1 g/dL 2.2-3.[address] [facility] Serum or plasma albumin grazyna urement (mass/volume)Ordered By: Fany Diaz on 12-31-2022 Albumin [Mass/Vol] 3.3 g/dL 3.2-5.0 [facility] Serum or plasma beta globuli n measurement by electrophoresis (mass/volume)Ordered By: Fany Diaz on 12-31-2022 Beta globulin Elph [Mass/Vol] 1.1 g/dL 0.7-1.3 [facility] Serum or plasma calcium grazyna urement (mass/volume)Ordered By: Fany Diaz on 12-31-2022 Calcium [Mass/Vol] 8.7 mg/dL 8.5-10.1 [facility] Serum or plasma complement C 3 measurement (mass/volume)Ordered By: Fany Diaz on 12-31-2022 Complement C3 [Mass/Vol] 159 mg/dL 82-167 [facility] Comment on above: Performed at: [place] [id number] Director: Chance Morales PhD, Phone: [phone] Serum or plasma complement C 4 measurement (mass/volume)Ordered By: Fany Diaz on 12-31-2022 Complement C4 [Mass/Vol] 26 mg/dL 12-38 [facility] Serum or plasma creatinine m easurement (mass/volume)Ordered By: Fany Diaz on 12-31-2022 Creatinine [Mass/Vol] 1.26 mg/dL 0.70-1.30 [facility] Comment on above: The validity of the calculated GFR & GFRAA in patients over 70 years has not been determined. Clinical correlation is essential. Serum or plasma ferritin elizabeth surement (mass/volume)Ordered By: Fany Diaz on 12-31-2022 Ferritin [Mass/Vol] 37 ng/mL 26-388 [facility] Serum or plasma iron saturat ion measurement (mass fraction)Ordered By: Fany Diaz on 12-31-2022 Iron saturation [Mass fraction] 10.4 % 15.0-55.0 [facility] Serum or plasma urea nitroge n measurement (mass/volume)Ordered By: Fany Diaz on 12-31-2022 Urea nitrogen [Mass/Vol] 27 mg/dL 7-18 [facility] Serum or plasma uric acid me asurement (mass/volume)Ordered By: Fany Diaz on 12-31-2022 Urate [Mass/Vol] 8.2 mg/dL 3.5-7.2 [facility] Comment on above: The drugs N-Acetylcy steine and Metamizole may falsely depress this assay. Thin prep Papanicolaou smear with manual screeningOrdered By: Fany Diaz on 12-31-2022 Thin prep Papanicolaou smear with manual screening See comment [facility] Comment on above: NOT OBSERVED Total protein bloodOrdered B y: Fany Diaz on 12-31-2022 Protein [Mass/Vol] 7.5 g/dL 6.0-8.5 [facility] Urine blood detectionOrdered By: Fany Diaz on 12-31-2022 RBC Ql (U) Negative Negative [facility] Urine clarityOrdered By: Roxi Diaz on 12-31-2022 Clarity (U) Sl. Cloudy Clear [facility] Urine color determinationOrd ered By: Fany Diaz on 12-31-2022 Color (U) Yellow Yellow [facility] Urine creatinine measurement (mass/volume)Ordered By: Fany Diaz on 12-31-2022 Creatinine (U) [Mass/Vol] 95.50 mg/dL NO RANGE EST. [facility] Urine glucose detectionOrder ed By: Fany Diaz on 12-31-2022 Glucose Ql (U) Normal mg/dl Normal [facility] Urine leukocyte esterase det ection by dipstickOrdered By: Fany Diaz on 12-31-2022 Leukocyte esterase Test strip Ql (U) Negative Negative [facility] Urine pHOrdered By: Fany Diaz on 12-31-2022 pH (U) 5.0 [pH] 5.0 - 8.0 [facility] Urine protein measurement (m ass/volume)Ordered By: Fany Diaz on 12-31-2022 Protein (U) [Mass/Vol] 15.7 mg/dL 0.0-11.8 [facility] Urine specific gravity measu rementOrdered By: Fany Diaz on 12-31-2022 Specific gravity (U) [Rel density] 1.015 1.002-1.03 0 [facility] Urobilinogen Auto test strip Ql (U)Ordered By: Fany Diaz on 12-31-2022 Urobilinogen Ql (U) Normal mg/dl Normal [facility] Laboratory - Hematology and Cell countson 12-10-2022 HbA1c (Bld) [Mass fraction] 7.1 % 4.2-6.3 [facility] Laboratory - Chemistry and C hemistry - challengeOrdered By: Brandt Winter on 11-07-2022 Natriuretic peptide B (Bld) [Mass/Vol] 9.7 pg/mL 0-100 [facility] T4 [Mass/Vol] 10.9 ug/dL 4.5-12.1 [facility] No Panel InformationOrdered By: Brandt Winter on 11-07-2022 Thyroid Stimulating Hormone (TSH) 0.27 uIU/mL 0.358-3.74 [facility] Total Triiodothyronine 1.16 ng/mL 0.6-1.81 [facility] Absolute lymphocyte countOrd ered By: Brandt Winter on 10-31-2022 Lymphocytes Auto (Unsp spec) [#/Vol] 1.83 10*3/uL 0.83-4.51 [facility] Basophil percentageOrdered B y: Brandt Winter on 10-31-2022 Basophils/100 WBC (Bld) 0.6 % 0-[address] [facility] Bilirubin [Mass/Vol] 0.60 mg/dL 0.20-1.00 [facility] Comment on above: For patients on eltr ombopag therapy, use of Dimension [place] TBIL is not recommended. Chloride [Moles/Vol] 107 mmol/L 98-107 [facility] Eosinophils/100 WBC (Bld) 3.8 % 0-5 [facility] Glucose [Mass/Vol] 119 mg/dL 74-106 [facility] Comment on above: Fasting Glucose resu lt from 100 to 125 mg/dL suggests IMPAIRED HOMEOSTASIS per A.D.A. criteria. Neutrophils (Bld) [#/Vol] 4.7 10*3/uL 2.0-7.7 [facility] Neutrophils/100 WBC (Bld) 59.2 % 47-70 [facility] Potassium [Moles/Vol] 4.9 mmol/L 3.5-5.1 [facility] Protein [Mass/Vol] 8.9 g/dL 6.4-8.2 [facility] Sodium [Moles/Vol] 135 mmol/L 136-145 [facility] WBC (Bld) [#/Vol] 7.9 10*3/uL 4.4-11.0 [facility] Blood erythrocytes count (nu mber/volume)Ordered By: Brandt Winter on 10-31-2022 RBC (Bld) [#/Vol] 3.94 10*6/uL 4.6-6.2 [facility] Blood hemoglobin measurement (mass/volume)Ordered By: Brandt Winter on 10-31-2022 Hemoglobin (Bld) [Mass/Vol] 10.4 g/dL 13.0-16.5 [facility] Blood lymphocytes/100 leukoc ytesOrdered By: Brandt Winter on 10-31-2022 Lymphocytes/100 WBC (Bld) 23.2 % 19-41 [facility] Blood monocytes/100 leukocyt esOrdered By: Brandt Winter on 10-31-2022 Monocytes/100 WBC (Bld) 12.7 % 0-[address] [facility] Blood platelet mean volumeOr dered By: Brandt Winter on 10-31-2022 Platelet mean volume (Bld) [Entitic vol] 10.2 fL 6.2-12.0 [facility] Determination of erythrocyte mean corpuscular volume (MCV)Ordered By: Brandt Winter on 10-31-2022 MCV (RBC) [Entitic vol] 81.0 fL 80-[address] [facility] Hematocrit Auto (Bld) [Volum e fraction]Ordered By: Brandt Winter on 10-31-2022 Hematocrit (Bld) [Volume fraction] 31.9 % 40-54 [facility] Iron measurement (mass/mass) Ordered By: Brandt Winter on 10-31-2022 Iron (Unsp spec) [Mass/Mass] 35 ug/dL 65-175 [facility] Laboratory - Chemistry and C hemistry - challengeOrdered By: Brandt Winter on 10-31-2022 ALP [Catalytic activity/Vol] 103 U/L 45-117 [facility] ALT [Catalytic activity/Vol] 24 U/L 16-61 [facility] CO2 [Moles/Vol] 19.0 mmol/L 21.0-32.0 [facility] Globulin (S) [Mass/Vol] 5.8 g/dL 2.2-4.[address] [facility] Urea nitrogen/Creatinine [Mass ratio] 27.0 mg/mg 10-20 [facility] Laboratory - Hematology and Cell countsOrdered By: Brandt Winter on 10-31-2022 Erythrocyte distribution width (RBC) [Entitic vol] 49.3 fL 35.1-43.9 [facility] Erythrocyte distribution width (RBC) [Ratio] 16.7 % 11.6-14.6 [facility] Immature granulocytes/100 WBC (Bld) 0.500 % 0.0-0.9 [facility] Comment on above: IG% - Immature Granu locytes (promyelocytes, myelocytes and metamyelocytes) > 1% indicates that a LEFT SHIFT is Present. MCH (RBC) [Entitic mass] 26.4 pg 27.0-32.0 [facility] Nucleated RBC/100 WBC (Bld) [Ratio] 0 % 0-5 [facility] MCHC Auto (RBC) [Mass/Vol]Or dered By: Brandt Winter on 10-31-2022 MCHC (RBC) [Mass/Vol] 32.6 g/dL 32-36 [facility] No Panel InformationOrdered By: Brandt Winter on 10-31-2022 Estimated GFR (MDRD) Amer 61 mL/min >60 [facility] Comment on above: GFR Calc Estimated GFR (MDRD) Non-Af Amer 50 mL/min >60 [facility] Comment on above: Non- GFR Calc Thyroid Stimulating Hormone (TSH) 0.23 uIU/mL 0.358-3.74 [facility] Total Iron Binding Capacity 274 ug/dL 250-450 [facility] Vitamin D 25-Hydroxy 12.1 ng/mL [facility] Comment on above: Vitamin D 25(OH) Sta tus Range Deficiency <20 ng/mL (50nmol/L) Insufficiency 20 - 30 ng/mL (50 - 75 nmol/L) Sufficiency 30 - 100 ng/mL (75 - 250 nmol/L) Toxicity >100 ng/mL (>250 nmol/L) Platelets bldOrdered By: Ximena Winter on 10-31-2022 Platelets (Bld) [#/Vol] 253 10*3/uL 150-450 [facility] Serum or plasma albumin grazyna urement (mass/volume)Ordered By: Brandt Winter on 10-31-2022 Albumin [Mass/Vol] 3.1 g/dL 3.2-5.0 [facility] Serum or plasma albumin/glob ulin mass ratioOrdered By: Brandt Winter on 10-31-2022 Albumin/Globulin [Mass ratio] 0.5 {ratio} 0.9-2.4 [facility] Serum or plasma calcium grazyna urement (mass/volume)Ordered By: Brandt Winter on 10-31-2022 Calcium [Mass/Vol] 9.1 mg/dL 8.5-10.1 [facility] Serum or plasma creatinine m easurement (mass/volume)Ordered By: Brandt Winter on 10-31-2022 Creatinine [Mass/Vol] 1.52 mg/dL 0.70-1.30 [facility] Comment on above: The validity of the calculated GFR & GFRAA in patients over 70 years has not been determined. Clinical correlation is essential. Serum or plasma ferritin elizabeth surement (mass/volume)Ordered By: Brandt Winter on 10-31-2022 Ferritin [Mass/Vol] 158 ng/mL 26-388 [facility] Serum or plasma iron saturat ion measurement (mass fraction)Ordered By: Brandt Winter on 10-31-2022 Iron saturation [Mass fraction] 12.8 % 15.0-55.0 [facility] Serum or plasma urea nitroge n measurement (mass/volume)Ordered By: Brandt Winter on 10-31-2022 Urea nitrogen [Mass/Vol] 41 mg/dL 7-18 [facility] Thin prep Papanicolaou smear with manual screeningOrdered By: Brandt Winter on 10-31-2022 Thin prep Papanicolaou smear with manual screening 22 U/L 15-37 [facility] Thin prep Papanicolaou smear with manual screening 9 5-15 [facility] Glucose Glucometer (BldC) [M ass/Vol]Ordered By: Dr. Ospina on 08-03-2022 Glucose [Mass/Vol] 343 mg/dL 74-106 [facility] Comment on above: MANAGEMENT OF PATIEN T CARE PER NURSING PROTOCOL Absolute lymphocyte countOrd ered By: Dr. Bell on 08-02-2022 Lymphocytes Auto (Unsp spec) [#/Vol] 1.27 10*3/uL 0.83-4.51 [facility] Basophil percentageOrdered B y: Dr. Bell on 08-02-2022 Basophils/100 WBC (Bld) 0.8 % 0-[address] [facility] Bilirubin [Mass/Vol] 0.50 mg/dL 0.20-1.00 [facility] Comment on above: For patients on eltr ombopag therapy, use of Dimension [place] TBIL is not recommended. Chloride [Moles/Vol] 104 mmol/L 98-107 [facility] Cholesterol [Mass/Vol] 133 mg/dL <200 [facility] Comment on above: <200 mg/dL Desirable 200-240 mg/dL Borderline >240 mg/dL High Risk Eosinophils/100 WBC (Bld) 3.1 % 0-5 [facility] Glucose [Mass/Vol] 280 mg/dL 74-106 [facility] Comment on above: Glucose result great er than or equal to 200 mg/dLsuggests DIABETES MELLITUS per A.D.A. criteria. Neutrophils (Bld) [#/Vol] 3.5 10*3/uL 2.0-7.7 [facility] Neutrophils/100 WBC (Bld) 59.7 % 47-70 [facility] Potassium [Moles/Vol] 4.0 mmol/L 3.5-5.1 [facility] Protein [Mass/Vol] 7.6 g/dL 6.4-8.2 [facility] Sodium [Moles/Vol] 135 mmol/L 136-145 [facility] Triglyceride [Mass/Vol] 300 mg/dL <[address] [facility] Comment on above: The drugs N-Acetylcy steine and Metamizole may falsely depress this assay.Serum Triglycerides Reference Interval Normal <150 mg/dL Borderline high 150 - 199 mg/dL High 200 - 499 mg/dL Very High > or = 500 mg/dL WBC (Bld) [#/Vol] 5.9 10*3/uL 4.4-11.0 [facility] Blood erythrocytes count (nu mber/volume)Ordered By: Dr. Bell on 08-02-2022 RBC (Bld) [#/Vol] 4.27 10*6/uL 4.6-6.2 [facility] Blood hemoglobin measurement (mass/volume)Ordered By: Dr. Bell on 08-02-2022 Hemoglobin (Bld) [Mass/Vol] 10.7 g/dL 13.0-16.5 [facility] Blood lymphocytes/100 leukoc ytesOrdered By: Dr. Bell on 08-02-2022 Lymphocytes/100 WBC (Bld) 21.5 % 19-41 [facility] Blood monocytes/100 leukocyt esOrdered By: Dr. Bell on 08-02-2022 Monocytes/100 WBC (Bld) 14.4 % 0-[address] [facility] Blood platelet mean volumeOr dered By: Dr. Bell on 08-02-2022 Platelet mean volume (Bld) [Entitic vol] 9.9 fL 6.2-12.0 [facility] Determination of erythrocyte mean corpuscular volume (MCV)Ordered By: Dr. Bell on 08-02-2022 MCV (RBC) [Entitic vol] 78.9 fL 80-[address] [facility] Hematocrit Auto (Bld) [Volum e fraction]Ordered By: Dr. Bell on 08-02-2022 Hematocrit (Bld) [Volume fraction] 33.7 % 40-54 [facility] Laboratory - Chemistry and C hemistry - challengeOrdered By: Dr. Bell on 08-02-2022 ALP [Catalytic activity/Vol] 118 U/L 45-117 [facility] ALT [Catalytic activity/Vol] 25 U/L 16-61 [facility] CO2 [Moles/Vol] 20.0 mmol/L 21.0-32.0 [facility] Globulin (S) [Mass/Vol] 4.4 g/dL 2.2-4.[address] [facility] Urea nitrogen/Creatinine [Mass ratio] 21.7 mg/mg 10-20 [facility] Laboratory - Hematology and Cell countsOrdered By: Dr. Bell on 08-02-2022 Erythrocyte distribution width (RBC) [Entitic vol] 46.5 fL 35.1-43.9 [facility] Erythrocyte distribution width (RBC) [Ratio] 16.4 % 11.6-14.6 [facility] Immature granulocytes/100 WBC (Bld) 0.500 % 0.0-0.9 [facility] Comment on above: IG% - Immature Granu locytes (promyelocytes, myelocytes and metamyelocytes) > 1% indicates that a LEFT SHIFT is Present. MCH (RBC) [Entitic mass] 25.1 pg 27.0-32.0 [facility] Nucleated RBC/100 WBC (Bld) [Ratio] 0 % 0-5 [facility] MCHC Auto (RBC) [Mass/Vol]Or dered By: Dr. Bell on 08-02-2022 MCHC (RBC) [Mass/Vol] 31.8 g/dL 32-36 [facility] No Panel InformationOrdered By: Dr. Bell on 08-02-2022 Estimated Creatinine Clearance Calc 83.01 ml/min [facility] Estimated GFR (MDRD) Amer 102 mL/min >60 [facility] Comment on above: GFR Calc Estimated GFR (MDRD) Non-Af Amer 84 mL/min >60 [facility] Comment on above: Non- GFR Calc Thyroid Stimulating Hormone (TSH) 1.36 uIU/mL 0.358-3.74 [facility] Platelets bldOrdered By: Dr. Bell on 08-02-2022 Platelets (Bld) [#/Vol] 193 10*3/uL 150-450 [facility] Serum or plasma albumin grazyna urement (mass/volume)Ordered By: Dr. Bell on 08-02-2022 Albumin [Mass/Vol] 3.2 g/dL 3.2-5.0 [facility] Serum or plasma albumin/glob ulin mass ratioOrdered By: Dr. Bell on 08-02-2022 Albumin/Globulin [Mass ratio] 0.7 {ratio} 0.9-2.4 [facility] Serum or plasma calcium grazyna urement (mass/volume)Ordered By: Dr. Bell on 08-02-2022 Calcium [Mass/Vol] 9.0 mg/dL 8.5-10.1 [facility] Serum or plasma cholesterol in HDL measurement (mass/volume)Ordered By: Dr. Bell on 08-02-2022 Cholesterol in HDL [Mass/Vol] 33 mg/dL >40 [facility] Comment on above: The drugs N-Acetylcy steine and Metamizole may falsely depress this assay. Reference Range HDL <40 mg/dL Low HDL Cholesterol HDL >or= 60 mg/dL High HDL Cholesterol Serum or plasma cholesterol in VLDL measurement (mass/volume)Ordered By: Dr. Bell on 08-02-2022 Cholesterol in VLDL [Mass/Vol] 60 mg/dL 5-40 [facility] Serum or plasma creatinine m easurement (mass/volume)Ordered By: Dr. Bell on 08-02-2022 Creatinine [Mass/Vol] 0.97 mg/dL 0.70-1.30 [facility] Comment on above: The validity of the calculated GFR & GFRAA in patients over 70 years has not been determined. Clinical correlation is essential. Serum or plasma low density lipoprotein (LDL) cholesterol measurement (mass/volume)Ordered By: Dr. Bell on 08-02-2022 Cholesterol in LDL [Mass/Vol] 40 mg/dL 0-130 [facility] Serum or plasma urea nitroge n measurement (mass/volume)Ordered By: Dr. Bell on 08-02-2022 Urea nitrogen [Mass/Vol] 21 mg/dL 7-18 [facility] Thin prep Papanicolaou smear with manual screeningOrdered By: Dr. Bell on 08-02-2022 Thin prep Papanicolaou smear with manual screening 18 U/L 15-37 [facility] Thin prep Papanicolaou smear with manual screening 11 5-15 [facility] Whole blood hemoglobin A1c/t otal hemoglobin ratio (mass fraction)Ordered By: Dr. Bell on 08-02-2022 HbA1c (Bld) [Mass fraction] 9.6 % 3.8-5.6 [facility] Comment on above: Normal < 5.7 % Predi abetic 5.7 - 6.4 % Diabetic >or= 6.5 % Please note range changes. INR in Blood by Coagulation assayOrdered By: ED PROVIDER on 08-01-2022 INR Coag (Bld) [Relative time] 1.1 {INR} [facility] - Chemistry and C hemistry - challengeOrdered By: Dr. Bell on 08-01-2022 Magnesium [Mass/Vol] 1.7 mg/dL 1.6-2.6 [facility] Laboratory - CoagulationOrde red By: ED PROVIDER on 08-01-2022 aPTT Coag (Bld) [Time] 28.7 s 24.1-36.2 [facility] PT Coag (PPP) [Time] 13.8 s 11.7-14.9 [facility] No Panel InformationOrdered By: Dr. Hill on 08-01-2022 Troponin I High Sensitivity 9 pg/mL 3.0-78.0 [facility] Comment on above: Please Note: New Karly t Units and Gender Specific Reference Ranges. For more information see Policy Stat Procedure [place] High Sensitivity Troponin (TNIH) and attachments. Basophil percentageOrdered B y: Oren Sky on 06-26-2022 Chloride [Moles/Vol] 104 mmol/L 98-107 [facility] Glucose [Mass/Vol] 224 mg/dL 74-106 [facility] Comment on above: Glucose result great er than or equal to 200 mg/dLsuggests DIABETES MELLITUS per A.D.A. criteria. Potassium [Moles/Vol] 4.6 mmol/L 3.5-5.1 [facility] Sodium [Moles/Vol] 134 mmol/L 136-145 [facility] Basophil percentageOrdered B y: Coreen Gerardo on 06-26-2022 Cholesterol [Mass/Vol] 145 mg/dL <200 [facility] Comment on above: <200 mg/dL Desirable 200-240 mg/dL Borderline >240 mg/dL High Risk Testosterone [Mass/Vol] 122 ng/dL 264-[address] [facility] Comment on above: Adult male reference interval is based on a population ofhealthy nonobese males (BMI <30) between 19 and 39 yearsold. Dina et.al. JCEM 2017,102;[id number]. PMID:[id number]. Triglyceride [Mass/Vol] 271 mg/dL <[address] [facility] Comment on above: The drugs N-Acetylcy steine and Metamizole may falsely depress this assay.Serum Triglycerides Reference Interval Normal <150 mg/dL Borderline high 150 - 199 mg/dL High 200 - 499 mg/dL Very High > or = 500 mg/dL Free testosterone percentage Ordered By: Coreen Gerardo on 06-26-2022 Testosterone Free/Testosterone.total [Mass fraction] 3.10 % 1.50-4.20 [facility] Comment on above: Performed at: [place] [facility] [address] [id number] Director: Chance Morales PhD, Phone: [phone] at: - [facility] [id number] [place], [place] [id number] Director: Rhina Norris MD, Phone: [phone] Laboratory - Chemistry and C hemistry - challengeOrdered By: Oren Sky on 06-26-2022 CO2 [Moles/Vol] 23.0 mmol/L 21.0-32.0 [facility] Urea nitrogen/Creatinine [Mass ratio] 30.7 mg/mg 10-20 [facility] Laboratory - Chemistry and C hemistry - challengeOrdered By: Coreen Gerardo on 06-26-2022 Free T4 [Mass/Vol] 1.33 ng/dL 0.76-1.46 [facility] No Panel InformationOrdered By: Oren Sky on 06-26-2022 Estimated GFR (MDRD) Amer 60 mL/min >60 [facility] Comment on above: GFR Calc Estimated GFR (MDRD) Non-Af Amer 50 mL/min >60 [facility] Comment on above: Non- GFR Calc No Panel InformationOrdered By: Coreen Gerardo on 06-26-2022 Thyroid Stimulating Hormone (TSH) 1.59 uIU/mL 0.358-3.74 [facility] Urine Microalbumin/Creatinine Ratio 72.5 mg/g CRE <30 [facility] Serum or plasma calcium grazyna urement (mass/volume)Ordered By: Oren Sky on 06-26-2022 Calcium [Mass/Vol] 9.0 mg/dL 8.5-10.1 [facility] Serum or plasma cholesterol in HDL measurement (mass/volume)Ordered By: Coreen Gerardo on 06-26-2022 Cholesterol in HDL [Mass/Vol] 36 mg/dL >40 [facility] Comment on above: The drugs N-Acetylcy steine and Metamizole may falsely depress this assay. Reference Range HDL <40 mg/dL Low HDL Cholesterol HDL >or= 60 mg/dL High HDL Cholesterol Serum or plasma cholesterol in VLDL measurement (mass/volume)Ordered By: Coreen Gerardo on 06-26-2022 Cholesterol in VLDL [Mass/Vol] 54 mg/dL 5-40 [facility] Serum or plasma creatinine m easurement (mass/volume)Ordered By: Oren Sky on 06-26-2022 Creatinine [Mass/Vol] 1.53 mg/dL 0.70-1.30 [facility] Comment on above: The validity of the calculated GFR & GFRAA in patients over 70 years has not been determined. Clinical correlation is essential. Serum or plasma low density lipoprotein (LDL) cholesterol measurement (mass/volume)Ordered By: Coreen Gerardo on 06-26-2022 Cholesterol in LDL [Mass/Vol] 55 mg/dL 0-130 [facility] Serum or plasma testosterone free measurement (mass/volume)Ordered By: Coreen Gerardo on 06-26-2022 Testosterone Free [Mass/Vol] 3.78 ng/dL 5.00-21.00 [facility] Serum or plasma urea nitroge n measurement (mass/volume)Ordered By: Oren Sky on 06-26-2022 Urea nitrogen [Mass/Vol] 47 mg/dL 7-18 [facility] Thin prep Papanicolaou smear with manual screeningOrdered By: Oren Sky on 06-26-2022 Thin prep Papanicolaou smear with manual screening 7 5-15 [facility] Thin prep Papanicolaou smear with manual screeningOrdered By: Coreen Gerardo on 06-26-2022 Thin prep Papanicolaou smear with manual screening 51.1 mg/L NO RANGE EST. [facility] Urine creatinine measurement (mass/volume)Ordered By: Coreen Gerardo on 06-26-2022 Creatinine (U) [Mass/Vol] 70.50 mg/dL NO RANGE EST. [facility] Laboratory - Hematology and Cell countson 06-18-2022 HbA1c (Bld) [Mass fraction] 8.2 % [facility] Basophil percentageOrdered B y: Lydia Segura on 05-18-2022 Chloride [Moles/Vol] 106 mmol/L 98-107 [facility] Glucose [Mass/Vol] 251 mg/dL 74-106 [facility] Comment on above: Glucose result great er than or equal to 200 mg/dLsuggests DIABETES MELLITUS per A.D.A. criteria. Potassium [Moles/Vol] 3.8 mmol/L 3.5-5.1 [facility] Sodium [Moles/Vol] 135 mmol/L 136-145 [facility] Laboratory - Chemistry and C hemistry - challengeOrdered By: Lydia Segura on 05-18-2022 CO2 [Moles/Vol] 21.0 mmol/L 21.0-32.0 [facility] Urea nitrogen/Creatinine [Mass ratio] 19.4 mg/mg 10-20 [facility] No Panel InformationOrdered By: Lydia Segura on 05-18-2022 Estimated GFR (MDRD) Amer 90 mL/min >60 [facility] Comment on above: GFR Calc Estimated GFR (MDRD) Non-Af Amer 75 mL/min >60 [facility] Comment on above: Non- GFR Calc Serum or plasma calcium grazyna urement (mass/volume)Ordered By: Lydia Segura on 05-18-2022 Calcium [Mass/Vol] 8.6 mg/dL 8.5-10.1 [facility] Serum or plasma creatinine m easurement (mass/volume)Ordered By: Lydia Segura on 05-18-2022 Creatinine [Mass/Vol] 1.08 mg/dL 0.70-1.30 [facility] Comment on above: The validity of the calculated GFR & GFRAA in patients over 70 years has not been determined. Clinical correlation is essential. Serum or plasma urea nitroge n measurement (mass/volume)Ordered By: Lydia Segura on 05-18-2022 Urea nitrogen [Mass/Vol] 21 mg/dL 7-18 [facility] Thin prep Papanicolaou smear with manual screeningOrdered By: Lydia Segura on 05-18-2022 Thin prep Papanicolaou smear with manual screening 8 5-15 [facility] Absolute lymphocyte countOrd ered By: Oren Sky on 04-17-2022 Lymphocytes Auto (Unsp spec) [#/Vol] 2.25 10*3/uL 0.83-4.51 [facility] Basophil percentageOrdered B y: Oren Sky on 04-17-2022 Basophils/100 WBC (Bld) 1.1 % 0-[address] [facility] Chloride [Moles/Vol] 102 mmol/L 98-107 [facility] Eosinophils/100 WBC (Bld) 3.3 % 0-5 [facility] Glucose [Mass/Vol] 263 mg/dL 74-106 [facility] Comment on above: Glucose result great er than or equal to 200 mg/dLsuggests DIABETES MELLITUS per A.D.A. criteria. Neutrophils (Bld) [#/Vol] 5.0 10*3/uL 2.0-7.7 [facility] Neutrophils/100 WBC (Bld) 59.8 % 47-70 [facility] Potassium [Moles/Vol] 4.0 mmol/L 3.5-5.1 [facility] Sodium [Moles/Vol] 135 mmol/L 136-145 [facility] WBC (Bld) [#/Vol] 8.4 10*3/uL 4.4-11.0 [facility] Blood erythrocytes count (nu mber/volume)Ordered By: Oren Sky on 04-17-2022 RBC (Bld) [#/Vol] 4.44 10*6/uL 4.6-6.2 [facility] Blood hemoglobin measurement (mass/volume)Ordered By: Oren Sky on 04-17-2022 Hemoglobin (Bld) [Mass/Vol] 11.1 g/dL 13.0-16.5 [facility] Blood lymphocytes/100 leukoc ytesOrdered By: Oren Sky on 04-17-2022 Lymphocytes/100 WBC (Bld) 26.8 % 19-41 [facility] Blood monocytes/100 leukocyt esOrdered By: Oren Sky on 04-17-2022 Monocytes/100 WBC (Bld) 8.6 % 0-[address] [facility] Blood platelet mean volumeOr dered By: Oren Sky on 04-17-2022 Platelet mean volume (Bld) [Entitic vol] 10.3 fL 6.2-12.0 [facility] Determination of erythrocyte mean corpuscular volume (MCV)Ordered By: Oren Sky on 04-17-2022 MCV (RBC) [Entitic vol] 80.2 fL 80-[address] [facility] Hematocrit Auto (Bld) [Volum e fraction]Ordered By: Oren Sky on 04-17-2022 Hematocrit (Bld) [Volume fraction] 35.6 % 40-54 [facility] Iron measurement (mass/mass) Ordered By: Oren Sky on 04-17-2022 Iron (Unsp spec) [Mass/Mass] 48 ug/dL 65-175 [facility] Laboratory - Chemistry and C hemistry - challengeOrdered By: Oren Sky on 04-17-2022 CO2 [Moles/Vol] 22.0 mmol/L 21.0-32.0 [facility] Natriuretic peptide B (Bld) [Mass/Vol] 37.2 pg/mL 0-100 [facility] Urea nitrogen/Creatinine [Mass ratio] 25.8 mg/mg 10-20 [facility] Laboratory - Hematology and Cell countsOrdered By: Oren Sky on 04-17-2022 Erythrocyte distribution width (RBC) [Entitic vol] 50.0 fL 35.1-43.9 [facility] Erythrocyte distribution width (RBC) [Ratio] 17.2 % 11.6-14.6 [facility] Immature granulocytes/100 WBC (Bld) 0.400 % 0.0-0.9 [facility] Comment on above: IG% - Immature Granu locytes (promyelocytes, myelocytes and metamyelocytes) > 1% indicates that a LEFT SHIFT is Present. MCH (RBC) [Entitic mass] 25.0 pg 27.0-32.0 [facility] Nucleated RBC/100 WBC (Bld) [Ratio] 0 % 0-5 [facility] MCHC Auto (RBC) [Mass/Vol]Or dered By: Oren Sky on 04-17-2022 MCHC (RBC) [Mass/Vol] 31.2 g/dL 32-36 [facility] No Panel InformationOrdered By: Oren Sky on 04-17-2022 Estimated GFR (MDRD) Amer 77 mL/min >60 [facility] Comment on above: GFR Calc Estimated GFR (MDRD) Non-Af Amer 64 mL/min >60 [facility] Comment on above: Non- GFR Calc Total Iron Binding Capacity 350 ug/dL 250-450 [facility] Platelets bldOrdered By: Jose Sky on 04-17-2022 Platelets (Bld) [#/Vol] 268 10*3/uL 150-450 [facility] Serum or plasma calcium grazyna urement (mass/volume)Ordered By: Oren Sky on 04-17-2022 Calcium [Mass/Vol] 8.9 mg/dL 8.5-10.1 [facility] Serum or plasma creatinine m easurement (mass/volume)Ordered By: Oren Sky on 04-17-2022 Creatinine [Mass/Vol] 1.24 mg/dL 0.70-1.30 [facility] Comment on above: The validity of the calculated GFR & GFRAA in patients over 70 years has not been determined. Clinical correlation is essential. Serum or plasma iron saturat ion measurement (mass fraction)Ordered By: Oren Sky on 04-17-2022 Iron saturation [Mass fraction] 13.7 % 15.0-55.0 [facility] Serum or plasma urea nitroge n measurement (mass/volume)Ordered By: Oren Sky on 04-17-2022 Urea nitrogen [Mass/Vol] 32 mg/dL 7-18 [facility] Thin prep Papanicolaou smear with manual screeningOrdered By: Oren Sky on 04-17-2022 Thin prep Papanicolaou smear with manual screening 11 5-15 [facility] Laboratory - Hematology and Cell countson 01-15-2022 HbA1c (Bld) [Mass fraction] 8.3 % [facility] Absolute lymphocyte counton 09-04-2021 Lymphocytes Auto (Unsp spec) [#/Vol] 1.59 10*3/uL 0.83-4.51 [facility] Work Phone: Basophil percentageon 2021 Basophils/100 WBC (Bld) 0.5 % 0-[address] [facility] Work Phone: Bilirubin [Mass/Vol] 0.60 mg/dL 0.20-1.00 [facility] Work Phone: Comment on above: For patients on eltr ombopag therapy, use of Dimension [place] TBIL is not recommended. Chloride [Moles/Vol] 107 mmol/L 98-107 [facility] Work Phone: Eosinophils/100 WBC (Bld) 3.6 % 0-5 [facility] Work Phone: Glucose [Mass/Vol] 174 mg/dL 74-106 [facility] Work Phone: Comment on above: Fasting Glucose resu lt greater than or equal to 126 mg/dL suggests DIABETES MELLITUS per A.D.A. criteria. Neutrophils (Bld) [#/Vol] 4.8 10*3/uL 2.0-7.7 [facility] Work Phone: Neutrophils/100 WBC (Bld) 63.3 % 47-70 [facility] Work Phone: Potassium [Moles/Vol] 4.0 mmol/L 3.5-5.1 [facility] Work Phone: Protein [Mass/Vol] 7.6 g/dL 6.4-8.2 [facility] Work Phone: Sodium [Moles/Vol] 138 mmol/L 136-145 [facility] Work Phone: WBC (Bld) [#/Vol] 7.5 10*3/uL 4.4-11.0 [facility] Work Phone: Blood erythrocytes count (nu mber/volume)on 09-04-2021 RBC (Bld) [#/Vol] 4.26 10*6/uL 4.6-6.2 [facility] Work Phone: Blood hemoglobin measurement (mass/volume)on 09-04-2021 Hemoglobin (Bld) [Mass/Vol] 11.0 g/dL 13.0-16.5 [facility] Work Phone: Blood lymphocytes/100 leukoc yteson 09-04-2021 Lymphocytes/100 WBC (Bld) 21.2 % 19-41 [facility] Work Phone: Blood monocytes/100 leukocyt eson 09-04-2021 Monocytes/100 WBC (Bld) 10.7 % 0-[address] [facility] Work Phone: Blood platelet mean volumeon 09-04-2021 Platelet mean volume (Bld) [Entitic vol] 10.2 fL 6.2-12.0 [facility] Work Phone: [phone] Determination of erythrocyte mean corpuscular volume (MCV)on 09-04-2021 MCV (RBC) [Entitic vol] 81.5 fL 80-[address] [facility] Work Phone: [phone] Hematocrit Auto (Bld) [Volum e fraction]on 09-04-2021 Hematocrit (Bld) [Volume fraction] 34.7 % 40-54 [facility] Work Phone: [phone] Laboratory - Chemistry and C hemistry - challengeon 09-04-2021 ALP [Catalytic activity/Vol] 92 U/L 45-117 [facility] Work Phone: [phone] ALT [Catalytic activity/Vol] 23 U/L 16-61 [facility] Work Phone: [phone] CO2 [Moles/Vol] 26.0 mmol/L 21.0-32.0 [facility] Work Phone: [phone] Globulin (S) [Mass/Vol] 4.5 g/dL 2.2-4.[address] [facility] Work Phone: [phone] Natriuretic peptide B (Bld) [Mass/Vol] 105.8 pg/mL 0-100 [facility] Work Phone: [phone] Urea nitrogen/Creatinine [Mass ratio] 25.2 mg/mg 10-20 [facility] Work Phone: [phone] Laboratory - Hematology and Cell countson 09-04-2021 Erythrocyte distribution width (RBC) [Entitic vol] 46.4 fL 35.1-43.9 [facility] Work Phone: [phone] Erythrocyte distribution width (RBC) [Ratio] 15.7 % 11.6-14.6 [facility] Work Phone: [phone] Immature granulocytes/100 WBC (Bld) 0.700 % 0.0-0.9 [facility] Work Phone: [phone] Comment on above: IG% - Immature Granu locytes (promyelocytes, myelocytes and metamyelocytes) > 1% indicates that a LEFT SHIFT is Present. MCH (RBC) [Entitic mass] 25.8 pg 27.0-32.0 [facility] Work Phone: Nucleated RBC/100 WBC (Bld) [Ratio] 0 % 0-5 [facility] Work Phone: MCHC Auto (RBC) [Mass/Vol]on 09-04-2021 MCHC (RBC) [Mass/Vol] 31.7 g/dL 32-36 [facility] Work Phone: No Panel Informationon 09-04 Troponin I High Sensitivity 16 pg/mL 3.0-78.0 [facility] Work Phone: Comment on above: Please Note: New Karly t Units and Gender Specific Reference Ranges. For more information see Policy Stat Procedure [place] High Sensitivity Troponin (TNIH) and attachments. Estimated Creatinine Clearance Calc 92.55 ml/min [facility] Work Phone: Estimated GFR (MDRD) Amer 115 mL/min >60 [facility] Work Phone: Comment on above: GFR Calc Estimated GFR (MDRD) Non-Af Amer 95 mL/min >60 [facility] Work Phone: Comment on above: Non- GFR Calc Platelets bldon 09-04-2021 Platelets (Bld) [#/Vol] 200 10*3/uL 150-450 [facility] Work Phone: [phone] Serum or plasma albumin grazyna urement (mass/volume)on 09-04-2021 Albumin [Mass/Vol] 3.1 g/dL 3.2-5.0 [facility] Work Phone: [phone] Serum or plasma albumin/glob ulin mass ratioon 09-04-2021 Albumin/Globulin [Mass ratio] 0.7 {ratio} 0.9-2.4 [facility] Work Phone: [phone] Serum or plasma calcium grazyna urement (mass/volume)on 09-04-2021 Calcium [Mass/Vol] 8.5 mg/dL 8.5-10.1 [facility] Work Phone: [phone] Serum or plasma creatinine m easurement (mass/volume)on 09-04-2021 Creatinine [Mass/Vol] 0.87 mg/dL 0.70-1.30 [facility] Work Phone: Comment on above: The validity of the calculated GFR & GFRAA in patients over 70 years has not been determined. Clinical correlation is essential. Serum or plasma urea nitroge n measurement (mass/volume)on 09-04-2021 Urea nitrogen [Mass/Vol] 22 mg/dL 7-18 [facility] Work Phone: Thin prep Papanicolaou smear with manual screeningon 09-04-2021 Thin prep Papanicolaou smear with manual screening 18 U/L 15-37 [facility] Work Phone: Thin prep Papanicolaou smear with manual screening 5 5-15 [facility] Work Phone: Absolute lymphocyte counton 07-16-2021 Lymphocytes Auto (Unsp spec) [#/Vol] 1.10 10*3/uL 0.83-4.51 [facility] Work Phone: Basophil percentageon 2021 Basophils/100 WBC (Bld) 0.7 % 0-1 [facility] Work Phone: Chloride [Moles/Vol] 105 mmol/L 98-107 [facility] Work Phone: Eosinophils/100 WBC (Bld) 3.2 % 0-5 [facility] Work Phone: Glucose [Mass/Vol] 283 mg/dL 74-106 [facility] Work Phone: Comment on above: Glucose result great er than or equal to 200 mg/dLsuggests DIABETES MELLITUS per A.D.A. criteria. Neutrophils (Bld) [#/Vol] 6.8 10*3/uL 2.0-7.7 [facility] Work Phone: Neutrophils/100 WBC (Bld) 76.6 % 47-70 [facility] Work Phone: Potassium [Moles/Vol] 3.9 mmol/L 3.5-5.1 [facility] Work Phone: Sodium [Moles/Vol] 138 mmol/L 136-145 [facility] Work Phone: [phone] WBC (Bld) [#/Vol] 8.8 10*3/uL 4.4-11.0 [facility] Work Phone: [phone] Blood erythrocytes count (nu mber/volume)on 07-16-2021 RBC (Bld) [#/Vol] 4.49 10*6/uL 4[facility]6-6.2 [facility]: [phone] Blood hemoglobin measurement (mass/volume)on 07-16-2021 Hemoglobin (Bld) [Mass/Vol] 11.8 g/dL 13.0-16.5 [facility] Work Phone: [phone] Blood lymphocytes/100 leukoc yteson 07-16-2021 Lymphocytes/100 WBC (Bld) 12.5 % 19-41 [facility] Work Phone: [phone] Blood monocytes/100 leukocyt eson 07-16-2021 Monocytes/100 WBC (Bld) 6.7 % 0-[address] [facility] Work Phone: [phone] Blood platelet mean volumeon 07-16-2021 Platelet mean volume (Bld) [Entitic vol] 10.2 fL 6.2-12.0 [facility] Work Phone: [phone] Determination of erythrocyte mean corpuscular volume (MCV)on 07-16-2021 MCV (RBC) [Entitic vol] 82.9 fL 80-[address] [facility] Work Phone: [phone] Hematocrit Auto (Bld) [Volum e fraction]on 07-16-2021 Hematocrit (Bld) [Volume fraction] 37.2 % 40-54 [facility] Work Phone: [phone] Laboratory - Chemistry and C hemistry - challengeon 07-16-2021 CO2 [Moles/Vol] 24.0 mmol/L 21.0-32.0 [facility] Work Phone: [phone] Natriuretic peptide B (Bld) [Mass/Vol] 59.2 pg/mL 0-100 [facility] Work Phone: [phone] Urea nitrogen/Creatinine [Mass ratio] 17.5 mg/mg 10-20 [facility] Work Phone: [phone] Laboratory - Hematology and Cell countson 07-16-2021 Erythrocyte distribution width (RBC) [Entitic vol] 47.2 fL 35.1-43.9 [facility] Work Phone: [phone] Erythrocyte distribution width (RBC) [Ratio] 15.9 % 11.6-14.6 [facility] Work Phone: [phone] Immature granulocytes/100 WBC (Bld) 0.300 % 0.0-0.9 [facility] Work Phone: [phone] Comment on above: IG% - Immature Granu locytes (promyelocytes, myelocytes and metamyelocytes) > 1% indicates that a LEFT SHIFT is Present. MCH (RBC) [Entitic mass] 26.3 pg 27.0-32.0 [facility] Work Phone: [phone] Nucleated RBC/100 WBC (Bld) [Ratio] 0 % 0-5 [facility] Work Phone: [phone] MCHC Auto (RBC) [Mass/Vol]on 07-16-2021 MCHC (RBC) [Mass/Vol] 31.7 g/dL 32-36 [facility] Work Phone: No Panel Informationon 07-16 Estimated Creatinine Clearance Calc 64.68 ml/min [facility] Work Phone: [phone] Estimated GFR (MDRD) Amer 76 mL/min >60 [facility] Work Phone: [phone] Comment on above: GFR Calc Estimated GFR (MDRD) Non-Af Amer 63 mL/min >60 [facility] Work Phone: [phone] Comment on above: Non- GFR Calc Troponin I High Sensitivity 10 pg/mL 3.0-78.0 [facility] Work Phone: [phone] Comment on above: Please Note: New Karly t Units and Gender Specific Reference Ranges. For more information see Policy Stat Procedure [place] High Sensitivity Troponin (TNIH) and attachments. Platelets bldon 07-16-2021 Platelets (Bld) [#/Vol] 209 10*3/uL 150-450 [facility] Work Phone: Serum or plasma calcium grazyna urement (mass/volume)on 07-16-2021 Calcium [Mass/Vol] 8.7 mg/dL 8.5-10.1 [facility] Work Phone: Serum or plasma creatinine m easurement (mass/volume)on 07-16-2021 Creatinine [Mass/Vol] 1.26 mg/dL 0.70-1.30 [facility] Work Phone: Comment on above: The validity of the calculated GFR & GFRAA in patients over 70 years has not been determined. Clinical correlation is essential. Serum or plasma urea nitroge n measurement (mass/volume)on 07-16-2021 Urea nitrogen [Mass/Vol] 22 mg/dL 7-18 [facility] Work Phone: Thin prep Papanicolaou smear with manual screeningon 07-16-2021 Thin prep Papanicolaou smear with manual screening 9 5-15 [facility] Work Phone: Absolute lymphocyte counton 07-12-2021 Lymphocytes Auto (Unsp spec) [#/Vol] 1.80 10*3/uL 0.83-4.51 [facility] Work Phone: Basophil percentageon 2021 Basophils/100 WBC (Bld) 0.9 % 0-[address] [facility] Work Phone: Chloride [Moles/Vol] 103 mmol/L 98-107 [facility] Work Phone: Eosinophils/100 WBC (Bld) 5.6 % 0-5 [facility] Work Phone: Glucose [Mass/Vol] 182 mg/dL 74-106 [facility] Work Phone: Comment on above: Fasting Glucose resu lt greater than or equal to 126 mg/dL suggests DIABETES MELLITUS per A.D.A. criteria. Neutrophils (Bld) [#/Vol] 5.1 10*3/uL 2.0-7.7 [facility] Work Phone: Neutrophils/100 WBC (Bld) 61.8 % 47-70 [facility] Work Phone: Potassium [Moles/Vol] 3.6 mmol/L 3.5-5.1 [facility] Work Phone: Sodium [Moles/Vol] 135 mmol/L 136-145 [facility] Work Phone: WBC (Bld) [#/Vol] 8.2 10*3/uL 4.4-11.0 [facility] Work Phone: Blood erythrocytes count (nu mber/volume)on 07-12-2021 RBC (Bld) [#/Vol] 4.31 10*6/uL 4.6-6.2 [facility] Work Phone: Blood hemoglobin measurement (mass/volume)on 07-12-2021 Hemoglobin (Bld) [Mass/Vol] 11.1 g/dL 13.0-16.5 [facility] Work Phone: Blood lymphocytes/100 leukoc yteson 07-12-2021 Lymphocytes/100 WBC (Bld) 22.0 % 19-41 [facility] Work Phone: Blood monocytes/100 leukocyt eson 07-12-2021 Monocytes/100 WBC (Bld) 9.3 % 0-[address] [facility] Work Phone: Blood platelet mean volumeon 07-12-2021 Platelet mean volume (Bld) [Entitic vol] 10.2 fL 6.2-12.0 [facility] Work Phone: Determination of erythrocyte mean corpuscular volume (MCV)on 07-12-2021 MCV (RBC) [Entitic vol] 80.5 fL 80-[address] [facility] Work Phone: Hematocrit Auto (Bld) [Volum e fraction]on 07-12-2021 Hematocrit (Bld) [Volume fraction] 34.7 % 40-54 [facility] Work Phone: [phone] Laboratory - Chemistry and C hemistry - challengeon 07-12-2021 CO2 [Moles/Vol] 24.0 mmol/L 21.0-32.0 [facility] Work Phone: [phone] Natriuretic peptide B (Bld) [Mass/Vol] 93.4 pg/mL 0-100 [facility] Work Phone: [phone] Urea nitrogen/Creatinine [Mass ratio] 22.0 mg/mg 10-20 [facility] Work Phone: [phone] Laboratory - Hematology and Cell countson 07-12-2021 Erythrocyte distribution width (RBC) [Entitic vol] 45.5 fL 35.1-43.9 [facility] Work Phone: [phone] Erythrocyte distribution width (RBC) [Ratio] 15.9 % 11.6-14.6 [facility] Work Phone: [phone] Immature granulocytes/100 WBC (Bld) 0.400 % 0.0-0.9 [facility] Work Phone: [phone] Comment on above: IG% - Immature Granu locytes (promyelocytes, myelocytes and metamyelocytes) > 1% indicates that a LEFT SHIFT is Present. MCH (RBC) [Entitic mass] 25.8 pg 27.0-32.0 [facility] Work Phone: [phone] Nucleated RBC/100 WBC (Bld) [Ratio] 0 % 0-5 [facility] Work Phone: [phone] MCHC Auto (RBC) [Mass/Vol]on 07-12-2021 MCHC (RBC) [Mass/Vol] 32.0 g/dL 32-36 [facility] Work Phone: [phone] Panel Informationon 07-12 Estimated GFR (MDRD) Amer 99 mL/min >60 [facility] Work Phone: [phone] Comment on above: GFR Calc Estimated GFR (MDRD) Non-Af Amer 82 mL/min >60 [facility] Work Phone: [phone] Comment on above: Non- GFR Calc Thyroid Stimulating Hormone (TSH) 1.06 uIU/mL 0.358-3.74 [facility] Work Phone: Platelets bldon 07-12-2021 Platelets (Bld) [#/Vol] 223 10*3/uL 150-450 [facility] Work Phone: Serum or plasma calcium grazyna urement (mass/volume)on 07-12-2021 Calcium [Mass/Vol] 8.6 mg/dL 8.5-10.1 [facility] Work Phone: Serum or plasma creatinine m easurement (mass/volume)on 07-12-2021 Creatinine [Mass/Vol] 1.00 mg/dL 0.70-1.30 [facility] Work Phone: Comment on above: The validity of the calculated GFR & GFRAA in patients over 70 years has not been determined. Clinical correlation is essential. Serum or plasma urea nitroge n measurement (mass/volume)on 07-12-2021 Urea nitrogen [Mass/Vol] 22 mg/dL 7-18 [facility] Work Phone: Thin prep Papanicolaou smear with manual screeningon 07-12-2021 Thin prep Papanicolaou smear with manual screening 8 5-15 [facility] Work Phone: Laboratory - Hematology and Cell countson 06-29-2021 HbA1c (Bld) [Mass fraction] 8.9 % [facility] Work Phone: Absolute lymphocyte counton 06-19-2021 Lymphocytes Auto (Unsp spec) [#/Vol] 1.28 10*3/uL 0.83-4.51 [facility] Work Phone: Basophil percentageon 2021 Lactate [Moles/Vol] 2.1 mmol/L 0.4-2.0 [facility] Work Phone: Comment on above: Critical Result(s) C alled at: 14:08:57 06/19/2021 by: Danae Zaldivar to Marlen. Results read back by same. Basophil percentage 0 SEEN /hpf 0-5 [facility] Work Phone: Basophils/100 WBC (Bld) 0.5 % 0-[address] [facility] Work Phone: Chloride [Moles/Vol] 104 mmol/L 98-107 [facility] Work Phone: Eosinophils/100 WBC (Bld) 2.6 % 0-5 [facility] Work Phone: [phone] Glucose [Mass/Vol] 191 mg/dL 74-106 [facility] Work Phone: Comment on above: Fasting Glucose resu lt greater than or equal to 126 mg/dL suggests DIABETES MELLITUS per A.D.A. criteria. Neutrophils (Bld) [#/Vol] 5.1 10*3/uL 2.0-7.7 [facility] Work Phone: Neutrophils/100 WBC (Bld) 69.5 % 47-70 [facility] Work Phone: Potassium [Moles/Vol] 3.9 mmol/L 3.5-5.1 [facility] Work Phone: Sodium [Moles/Vol] 137 mmol/L 136-145 [facility] Work Phone: WBC (Bld) [#/Vol] 7.4 10*3/uL 4.4-11.0 [facility] Work Phone: Bilirubin Test strip Ql (U)o n 06-19-2021 Bilirubin Ql (U) Negative Negative [facility] Work Phone: Blood erythrocytes count (nu mber/volume)on 06-19-2021 RBC (Bld) [#/Vol] 4.54 10*6/uL 4.6-6.2 [facility] Work Phone: Blood hemoglobin measurement (mass/volume)on 06-19-2021 Hemoglobin (Bld) [Mass/Vol] 12.0 g/dL 13.0-16.5 [facility] Work Phone: Blood lymphocytes/100 leukoc yteson 06-19-2021 Lymphocytes/100 WBC (Bld) 17.3 % 19-41 [facility] Work Phone: Blood monocytes/100 leukocyt eson 06-19-2021 Monocytes/100 WBC (Bld) 9.6 % 0-[address] [facility] Work Phone: Blood platelet mean volumeon 06-19-2021 Platelet mean volume (Bld) [Entitic vol] 9.7 fL 6.2-12.0 [facility] Work Phone: Determination of erythrocyte mean corpuscular volume (MCV)on 06-19-2021 MCV (RBC) [Entitic vol] 79.7 fL 80-[address] [facility] Work Phone: Hematocrit Auto (Bld) [Volum e fraction]on 06-19-2021 Hematocrit (Bld) [Volume fraction] 36.2 % 40-54 [facility] Work Phone: Ketones Test strip Ql (U)on 06-19-2021 Ketones Ql (U) Negative Negative [facility] Work Phone: Laboratory - Chemistry and C hemistry - challengeon 06-19-2021 CO2 [Moles/Vol] 26.0 mmol/L 21.0-32.0 [facility] Work Phone: Natriuretic peptide B (Bld) [Mass/Vol] 155.0 pg/mL 0-100 [facility] Work Phone: Urea nitrogen/Creatinine [Mass ratio] 14.6 mg/mg 10-20 [facility] Work Phone: Laboratory - Hematology and Cell countson 06-19-2021 Erythrocyte distribution width (RBC) [Entitic vol] 43.1 fL 35.1-43.9 [facility] Work Phone: Erythrocyte distribution width (RBC) [Ratio] 15.0 % 11.6-14.6 [facility] Work Phone: Immature granulocytes/100 WBC (Bld) 0.500 % 0.0-0.9 [facility] Work Phone: [phone] Comment on above: IG% - Immature Granu locytes (promyelocytes, myelocytes and metamyelocytes) > 1% indicates that a LEFT SHIFT is Present. MCH (RBC) [Entitic mass] 26.4 pg 27.0-32.0 [facility] Work Phone: [phone] Nucleated RBC/100 WBC (Bld) [Ratio] 0 % 0-5 [facility] Work Phone: [phone] MCHC Auto (RBC) [Mass/Vol]on 06-19-2021 MCHC (RBC) [Mass/Vol] 33.1 g/dL 32-36 [facility] Work Phone: [phone] Mucus LM Ql (Urine sed)on Mucus Ql (Urine sed) 0 SEEN /hpf [facility] Work Phone: [phone] Nitrite Test strip Ql (U)on 06-19-2021 Nitrite Ql (U) Negative Negative [facility] Work Phone: [phone] Panel Informationon 06-19 Troponin I High Sensitivity 31 pg/mL 3.0-78.0 [facility] Work Phone: [phone] Comment on above: Please Note: New Karly t Units and Gender Specific Reference Ranges. For more information see Policy Stat Procedure [place] High Sensitivity Troponin (TNIH) and attachments. Estimated Creatinine Clearance Calc 84.90 ml/min [facility] Work Phone: [phone] Estimated GFR (MDRD) Amer 104 mL/min >60 [facility] Work Phone: [phone] Comment on above: GFR Calc Estimated GFR (MDRD) Non-Af Amer 86 mL/min >60 [facility] Work Phone: [phone] Comment on above: Non- GFR Calc Platelets bldon 06-19-2021 Platelets (Bld) [#/Vol] 216 10*3/uL 150-450 [facility] Work Phone: [phone] Protein Test strip Ql (U)on 06-19-2021 Protein Ql (U) 30 mg/dl Negative [facility] Work Phone: Serum or plasma calcium grazyna urement (mass/volume)on 06-19-2021 Calcium [Mass/Vol] 8.8 mg/dL 8.5-10.1 [facility] Work Phone: Serum or plasma creatinine m easurement (mass/volume)on 06-19-2021 Creatinine [Mass/Vol] 0.96 mg/dL 0.70-1.30 [facility] Work Phone: Comment on above: The validity of the calculated GFR & GFRAA in patients over 70 years has not been determined. Clinical correlation is essential. Serum or plasma urea nitroge n measurement (mass/volume)on 06-19-2021 Urea nitrogen [Mass/Vol] 14 mg/dL 7-18 [facility] Work Phone: Squamous epithelial cells de tection in urine sediment by light microscopyon 06-19-2021 Epithelial cells.squamous LM Ql (Urine sed) 0 SEEN /hpf 0-5 [facility] Work Phone: Thin prep Papanicolaou smear with manual screeningon 06-19-2021 Thin prep Papanicolaou smear with manual screening 7 5-15 [facility] Work Phone: Urine blood detectionon 05-31 RBC Ql (U) Negative Negative [facility] Work Phone: RBC Ql (U) 0 SEEN /hpf 0-5 [facility] Work Phone: Urine clarityon 06-19-2021 Clarity (U) Clear Clear [facility] Work Phone: Urine color determinationon 06-19-2021 Color (U) Yellow Yellow [facility] Work Phone: [phone] Urine glucose detectionon Glucose Ql (U) Normal mg/dl Normal [facility] Work Phone: Urine leukocyte esterase det ection by dipstickon 06-19-2021 Leukocyte esterase Test strip Ql (U) Negative Negative [facility] Work Phone: Urine pHon 06-19-2021 pH (U) 6.0 [pH] 5.0 - 8.0 [facility] Work Phone: Urine sediment bacteria coun t by microscopy (number/high power field)on 06-19-2021 Bacteria LM.HPF (Urine sed) [#/Area] 0 /[HPF] None Seen [facility] Work Phone: Urine specific gravity measu rementon 06-19-2021 Specific gravity (U) [Rel density] 1.015 1.002-1.03 0 [facility] Work Phone: Urobilinogen Auto test strip Ql (U)on 06-19-2021 Urobilinogen Ql (U) Normal mg/dl Normal [facility] Work Phone: No Panel Informationon 06-02 Urine Microalbumin/Creatinine Ratio 40.2 mg/g CRE <30 [facility] Work Phone: Thin prep Papanicolaou smear with manual screeningon 06-02-2021 Thin prep Papanicolaou smear with manual screening 22.8 mg/L NO RANGE EST. [facility] Work Phone: Urine creatinine measurement (mass/volume)on 06-02-2021 Creatinine (U) [Mass/Vol] 56.70 mg/dL NO RANGE EST. [facility] Work Phone: Basophil percentageon 2021 Bilirubin [Mass/Vol] 0.40 mg/dL 0.20-1.00 [facility] Work Phone: [phone] Comment on above: For patients on eltr ombopag therapy, use of Dimension [place] TBIL is not recommended. Chloride [Moles/Vol] 102 mmol/L 98-107 [facility] Work Phone: [phone] Cholesterol [Mass/Vol] 189 mg/dL <200 [facility] Work Phone: [phone] Comment on above: <200 mg/dL Desirable 200-240 mg/dL Borderline >240 mg/dL High Risk Glucose [Mass/Vol] 285 mg/dL 74-106 [facility] Work Phone: [phone] Comment on above: Glucose result great er than or equal to 200 mg/dLsuggests DIABETES MELLITUS per A.D.A. criteria. Potassium [Moles/Vol] 4.1 mmol/L 3.5-5.1 [facility] Work Phone: [phone] Protein [Mass/Vol] 8.1 g/dL 6.4-8.2 [facility] Work Phone: [phone] Sodium [Moles/Vol] 133 mmol/L 136-145 [facility] Work Phone: [phone] Triglyceride [Mass/Vol] 526 mg/dL <[address] [facility] Work Phone: [phone] Comment on above: The drugs N-Acetylcy steine [...] 06-01-2021 ALP [Catalytic activity/Vol] 96 U/L 45-117 [facility] Work Phone: [phone] ALT [Catalytic activity/Vol] 31 U/L 16-61 [facility] Work Phone: [phone] CO2 [Moles/Vol] 24.0 mmol/L 21.0-32.0 [facility] Work Phone: [phone] Globulin (S) [Mass/Vol] 4.6 g/dL 2.2-4.[address] [facility] Work Phone: [phone] Urea nitrogen/Creatinine [Mass ratio] 22.3 mg/mg 10-20 [facility] Work Phone: [phone] Laboratory - Hematology and Cell countson 06-01-2021 HbA1c (Bld) [Mass fraction] 9.3 % [facility] Work Phone: [phone] No Panel Informationon 06-01 Estimated GFR (MDRD) Amer 73 mL/min >60 [facility] Work Phone: [phone] Comment on above: GFR Calc Estimated GFR (MDRD) Non-Af Amer 60 mL/min >60 [facility] Work Phone: Comment on above: Non- GFR Calc Serum or plasma albumin grazyna urement (mass/volume)on 06-01-2021 Albumin [Mass/Vol] 3.5 g/dL 3.2-5.0 [facility] Work Phone: Serum or plasma albumin/glob ulin mass ratioon 06-01-2021 Albumin/Globulin [Mass ratio] 0.8 {ratio} 0.9-2.4 [facility] Work Phone: Serum or plasma calcium grazyna urement (mass/volume)on 06-01-2021 Calcium [Mass/Vol] 9.1 mg/dL 8.5-10.1 [facility] Work Phone: Serum or plasma cholesterol in HDL measurement (mass/volume)on 06-01-2021 Cholesterol in HDL [Mass/Vol] 33 mg/dL >40 [facility] Work Phone: Comment on above: The drugs N-Acetylcy steine and Metamizole may falsely depress this assay. Reference Range HDL <40 mg/dL Low HDL Cholesterol HDL >or= 60 mg/dL High HDL Cholesterol Serum or plasma cholesterol in VLDL measurement (mass/volume)on 06-01-2021 Cholesterol in VLDL [Mass/Vol] [facility] Work Phone: Comment on above: Test not performed Serum or plasma creatinine m easurement (mass/volume)on 06-01-2021 Creatinine [Mass/Vol] 1.30 mg/dL 0.70-1.30 [facility] Work Phone: Comment on above: The validity of the calculated GFR & GFRAA in patients over 70 years has not been determined. Clinical correlation is essential. Serum or plasma low density lipoprotein (LDL) cholesterol measurement (mass/volume)on 06-01-2021 Cholesterol in LDL [Mass/Vol] [facility] Work Phone: Comment on above: Test not performed Serum or plasma urea nitroge n measurement (mass/volume)on 06-01-2021 Urea nitrogen [Mass/Vol] 29 mg/dL 7-18 [facility] Work Phone: Thin prep Papanicolaou smear with manual screeningon 06-01-2021 Thin prep Papanicolaou smear with manual screening 24 U/L 15-37 [facility] Work Phone: Thin prep Papanicolaou smear with manual screening 7 5-15 [facility] Work Phone: Absolute lymphocyte counton 05-30-2021 Lymphocytes Auto (Unsp spec) [#/Vol] 1.58 10*3/uL 0.83-4.51 [facility] Work Phone: Basophil percentageon 2021 Basophils/100 WBC (Bld) 0.7 % 0-[address] [facility] Work Phone: Eosinophils/100 WBC (Bld) 2.4 % 0-5 [facility] Work Phone: Neutrophils (Bld) [#/Vol] 4.4 10*3/uL 2.0-7.7 [facility] Work Phone: Neutrophils/100 WBC (Bld) 64.8 % 47-70 [facility] Work Phone: WBC (Bld) [#/Vol] 6.7 10*3/uL 4.4-11.0 [facility] Work Phone: Blood erythrocytes count (nu mber/volume)on 05-30-2021 RBC (Bld) [#/Vol] 4.54 10*6/uL 4.6-6.2 [facility] Work Phone: Blood hemoglobin measurement (mass/volume)on 05-30-2021 Hemoglobin (Bld) [Mass/Vol] 11.9 g/dL 13.0-16.5 [facility] Work Phone: Blood lymphocytes/100 leukoc yteson 05-30-2021 Lymphocytes/100 WBC (Bld) 23.4 % 19-41 [facility] Work Phone: Blood monocytes/100 leukocyt eson 05-30-2021 Monocytes/100 WBC (Bld) 8.6 % 0-[address] [facility] Work Phone: [phone] Blood platelet mean volumeon 05-30-2021 Platelet mean volume (Bld) [Entitic vol] 10.7 fL 6.2-12.0 [facility] Work Phone: [phone] Determination of erythrocyte mean corpuscular volume (MCV)on 05-30-2021 MCV (RBC) [Entitic vol] 81.3 fL 80-[address] [facility] Work Phone: [phone] Hematocrit Auto (Bld) [Volum e fraction]on 05-30-2021 Hematocrit (Bld) [Volume fraction] 36.9 % 40-54 [facility] Work Phone: [phone] Laboratory - Hematology and Cell countson 05-30-2021 Erythrocyte distribution width (RBC) [Entitic vol] 46.5 fL 35.1-43.9 [facility] Work Phone: [phone] Erythrocyte distribution width (RBC) [Ratio] 15.6 % 11.6-14.6 [facility] Work Phone: [phone] Immature granulocytes/100 WBC (Bld) 0.100 % 0.0-0.9 [facility] Work Phone: [phone] Comment on above: IG% - Immature Granu locytes (promyelocytes, myelocytes and metamyelocytes) > 1% indicates that a LEFT SHIFT is Present. MCH (RBC) [Entitic mass] 26.2 pg 27.0-32.0 [facility] Work Phone: [phone] Nucleated RBC/100 WBC (Bld) [Ratio] 0 % 0-5 [facility] Work Phone: [phone] MCHC Auto (RBC) [Mass/Vol]on 05-30-2021 MCHC (RBC) [Mass/Vol] 32.2 g/dL 32-36 [facility] Work Phone: [phone] No Panel Informationon 05-30 Thyroid Stimulating Hormone (TSH) 1.24 uIU/mL 0.358-3.74 [facility] Work Phone: Platelets bldon 05-30-2021 Platelets (Bld) [#/Vol] 201 10*3/uL 150-450 [facility] Work Phone: Final Surgical Pathology Rep shruthi 08-11-2018 Final Surgical Pathology Report . Pathology Reports Accession: Collected Date/Time: Received Date/Time: Pathologist: [id number] 08/07/2018 14:48 EDT 08/08/2018 14:48 EDT URBAN [...] cm. TS -1 Dictated by Talita GRIFFITHS ([facility]) MICROSCOPIC DESCRIPTION: A-B Slides reviewed. Electronically Signed by Pathology Report verified by [facility] Electronically signed by URBAN BILLINGS Sign out Date: 08/11/2018 15:23 Performing Lab: [facility], [address] [place] [address] ([place]) Comment on above: Performed By: #### S PFR #### [place] [id number] Otheron 12-28-2010 CONVERTED CLINICAL HISTORY OPERATIVE PROCEDURE: V arthroscopy, partial medial meniscectomy rt knee CLINICAL INFORMATION: Partial medial meniscal tear rt knee [facility] CONVERTED ELECTRONIC SIGNATURE OCHOA SPENCER M.D., PATHOLOGIST (Electronic signature on file) Final Signed Out: 12/28/2010 13:12 [facility] CONVERTED FINAL DIAGNOSIS FINAL DIAGNOSIS: RIGHT KNEE, INTRAARTICULAR SHAVINGS - FIBROCARTILAGE WITH DEGENERATIVE CHANGES. SPECIMEN: SHAVINGS, KNEE [facility] CONVERTED GROSS DESCRIPTION GROSS DESCRIPTION: Intra-articular shavings rt knee Container labeled shavings right knee. Received in a cloth sock are portions of yellow-white fibrocartilaginous tissue measuring 2 x 2 x 1 cm in aggregate. A event marketing representative sample is submitted in a single cassette. SMS/lrs MICROSCOPIC DESCRIPTION: Slides reviewed. EDS/gpl [facility] CONVERTED ORDERING PROVIDER Ordering Provider: KARLOS AQUINO [facility] Vital Signs Date Time Vital Sign Value Performing Clinician Facility 09-26-2024 18:10-0400 Body temperature 97.8 [degF] Dr. Radha Khan MD Work Phone: [facility] 09-26-2024 18:10-0400 Diastolic blood pressure 64 mm[Hg] Dr. Radha Khan MD Work Phone: [facility] 09-26-2024 18:10-0400 Heart rate 74 /min Dr. Radha Khan MD Work Phone: [facility] 09-26-2024 18:10-0400 Respiratory rate 26 /min Dr. Radha Khan MD Work Phone: [facility] 09-26-2024 18:10-0400 SaO2% (BldA) [Mass fraction] 94 % Dr. Radha Khan MD Work Phone: [facility] 09-26-2024 18:10-0400 Systolic blood pressure 133 mm[Hg] Dr. Radha Khan MD Work Phone: [facility] 09-26-2024 17:19-0400 Inhaled oxygen flow rate 4 L/min Dr. Radha Khan MD Work Phone: [facility] 09-26-2024 15:29-0400 Body height 175.[address] Radha Khan MD Work Phone: [facility] 09-24-2024 09:03-0400 Diastolic blood pressure 69 mm[Hg] Dick Nguyen MD Work Phone: [facility] 09-24-2024 09:03-0400 Systolic blood pressure 100 mm[Hg] Dick Nguyen MD Work Phone: [facility] 09-24-2024 08:55-0400 Body temperature 96.8 [degF] Dick Nguyen MD Work Phone: [facility] 09-24-2024 08:55-0400 Heart rate 57 /min Dick Nguyen MD Work Phone: [facility] 09-24-2024 08:55-0400 Respiratory rate 29 /min Dick Nguyen MD Work Phone: [facility] 09-24-2024 08:55-0400 SaO2% (BldA) [Mass fraction] 96 % Dick Nguyen MD Work Phone: [facility] 09-24-2024 06:54-0400 Body height 175.3 cm Dick Ngueyn MD Work Phone: [facility] 09-24-2024 06:54-0400 Body mass index (BMI) [Ratio] 47.85 kg/m2 Dick Nguyen MD Work Phone: [facility] 09-24-2024 06:54-0400 Body weight 146.97 kg Dick Nguyen MD Work Phone: [facility] 09-16-2024 10:01-0400 Body height 175.[address] Radha Khan MD Work Phone: [facility] 09-16-2024 10:01-0400 Body mass index (BMI) [Ratio] 48.1 kg/m2 Dr. Radha Khan MD Work Phone: [facility] 09-16-2024 10:01-0400 Body weight 147.[address] Radha Khan MD Work Phone: [facility] 09-16-2024 10:01-0400 Diastolic blood pressure 70 mm[Hg] Dr. Radha Khan MD Work Phone: [facility] 09-16-2024 10:01-0400 Heart rate 72 /min Dr. Radha Khan MD Work Phone: [facility] 09-16-2024 10:01-0400 SaO2% (BldA) [Mass fraction] 96 % Dr. Radha Khan MD Work Phone: [facility] 09-16-2024 10:01-0400 Systolic blood pressure 109 mm[Hg] Dr. Radha Khan MD Work Phone: 4(938)453-650426 [place] [address] 09-15-2024 12:59-0400 Body height 175.[address] Radha Khan MD Work Phone: 6(948)408-114626 [place] [address] 09-15-2024 12:59-0400 Body mass index (BMI) [Ratio] 47.8 kg/m2 Dr. Radha Khan MD Work Phone: 7(726)440-733826 [place] [address] 09-15-2024 12:59-0400 Body temperature 98.2 [degF] Dr. Radha Khan MD Work Phone: 3(204)597-130426 [place] [address] 09-15-2024 12:59-0400 Body weight 146.[address] Radha Khan MD Work Phone: 2(543)631-424426 [place] [address] 09-15-2024 12:59-0400 Diastolic blood pressure 59 mm[Hg] Dr. Radha Khan MD Work Phone: 7(716)496-024794 [place] [address] 09-15-2024 12:59-0400 Heart rate 82 /min Dr. Radha Khan MD Work Phone: 9(091)928-108094 [place] [address] 09-15-2024 12:59-0400 Inhaled oxygen flow rate 4 L/min Dr. Radha Khan MD Work Phone: [facility] 09-15-2024 12:59-0400 Respiratory rate 17 /min Dr. Radha Khan MD Work Phone: [facility] 09-15-2024 12:59-0400 SaO2% (BldA) [Mass fraction] 94 % Dr. Radha Khan MD Work Phone: 9(722)006-125594 [place] [address] 09-15-2024 12:59-0400 Systolic blood pressure 104 mm[Hg] Dr. Radha Khan MD Work Phone: [facility] 08-28-2024 11:58-0400 Body temperature 97.9 [degF] Rosalino Padron MD Work Phone: [facility] 08-28-2024 11:58-0400 Body weight 143.79 kg Rosalino Padron MD Work Phone: [facility] 08-28-2024 11:58-0400 Diastolic blood pressure 70 mm[Hg] Rosalino Padron MD Work Phone: [facility] 08-28-2024 11:58-0400 Heart rate 76 /min Rosalino Padron MD Work Phone: [facility] 08-28-2024 11:58-0400 SaO2% (BldA) [Mass fraction] 95 % Rosalino Padron MD Work Phone: [facility] Comment on above: 4L O2 08-28-2024 11:58-0400 Systolic blood pressure 125 mm[Hg] Rosalino Padron MD Work Phone: [facility] 08-17-2024 11:25-0400 Body height 175.[address] Radha Khan MD Work Phone: [facility] 08-17-2024 11:25-0400 Body mass index (BMI) [Ratio] 46 kg/m2 Dr. Radha Khan MD Work Phone: [facility] 08-17-2024 11:25-0400 Body temperature 98.2 [degF] Dr. Radha Khan MD Work Phone: [facility] 08-17-2024 11:25-0400 Body weight 141.[address] Radha Khan MD Work Phone: [facility] 08-17-2024 11:25-0400 Diastolic blood pressure 70 mm[Hg] Dr. Radha Khan MD Work Phone: [facility] 08-17-2024 11:25-0400 Heart rate 74 /min Dr. Radha Khan MD Work Phone: [facility] 08-17-2024 11:25-0400 Inhaled oxygen flow rate 4 L/min Dr. Radha Khan MD Work Phone: [facility] 08-17-2024 11:25-0400 Respiratory rate 16 /min Dr. Radha Khan MD Work Phone: [facility] 08-17-2024 11:25-0400 SaO2% (BldA) [Mass fraction] 96 % Dr. Radha Khan MD Work Phone: [facility] 08-17-2024 11:25-0400 Systolic blood pressure 119 mm[Hg] Dr. Radha Khan MD Work Phone: [facility] 08-07-2024 14:09-0400 Body temperature 98.01 [degF] Rosalino Padron MD Work Phone: [facility] 08-07-2024 14:09-0400 Body weight 141.98 kg Rosalino Padron MD Work Phone: [facility] 08-07-2024 14:09-0400 Diastolic blood pressure 58 mm[Hg] Rosalino Padron MD Work Phone: [facility] 08-07-2024 14:09-0400 Heart rate 81 /min Rosalino Padron MD Work Phone: [facility] 08-07-2024 14:09-0400 SaO2% (BldA) [Mass fraction] 98 % Rosalino Padron MD Work Phone: [facility] 08-07-2024 14:09-0400 Systolic blood pressure 92 mm[Hg] Rosalino Padron MD Work Phone: [facility] 08-06-2024 14:41-0400 Body temperature 98.2 [degF] Dr. Radha Khan MD Work Phone: [facility] 08-06-2024 14:41-0400 Body weight 142.[address] Radha Khan MD Work Phone: [facility] 08-06-2024 14:41-0400 Diastolic blood pressure 69 mm[Hg] Dr. Radha Khan MD Work Phone: [facility] 08-06-2024 14:41-0400 Heart rate 80 /min Dr. Radha Khan MD Work Phone: [facility] 08-06-2024 14:41-0400 Inhaled oxygen flow rate 8 L/min Dr. Radha Khan MD Work Phone: 9(751)647-939694 [place] [address] 08-06-2024 14:41-0400 Respiratory rate 17 /min Dr. Radha Khan MD Work Phone: [facility] 08-06-2024 14:41-0400 SaO2% (BldA) [Mass fraction] 94 % Dr. Radha Khan MD Work Phone: [facility] 08-06-2024 14:41-0400 Systolic blood pressure 99 mm[Hg] Dr. Radha Khan MD Work Phone: [facility] 07-06-2024 13:44-0400 Body temperature 98.2 [degF] Dr. Radha Khan MD Work Phone: [facility] 07-06-2024 13:44-0400 Body weight 139.[address] Radha Khan MD Work Phone: [facility] 07-06-2024 13:44-0400 Diastolic blood pressure 68 mm[Hg] Dr. Radha Khan MD Work Phone: [facility] 07-06-2024 13:44-0400 Heart rate 91 /min Dr. Radha Khan MD Work Phone: [facility] 07-06-2024 13:44-0400 Inhaled oxygen flow rate 4 L/min Dr. Radha Khan MD Work Phone: [facility] 07-06-2024 13:44-0400 Respiratory rate 17 /min Dr. Radha Khan MD Work Phone: [facility] 07-06-2024 13:44-0400 SaO2% (BldA) [Mass fraction] 97 % Dr. Radha Khan MD Work Phone: [facility] 07-06-2024 13:44-0400 Systolic blood pressure 110 mm[Hg] Dr. Radha Khan MD Work Phone: [facility] 06-26-2024 11:10-0400 Body temperature 97.59 [degF] Rosalino Padron MD Work Phone: [facility] 06-26-2024 11:10-0400 Body weight 141.07 kg Rosalino Padron MD Work Phone: [facility] 06-26-2024 11:10-0400 Diastolic blood pressure 78 mm[Hg] Rosalino Padron MD Work Phone: [facility] 06-26-2024 11:10-0400 Heart rate 76 /min Rosalino Padron MD Work Phone: [facility] 06-26-2024 11:10-0400 SaO2% (BldA) [Mass fraction] 98 % Rosalino Padron MD Work Phone: [facility] Comment on above: pt on 4L O2 06-26-2024 11:10-0400 Systolic blood pressure 157 mm[Hg] Rosalino Padron MD Work Phone: [facility] 06-10-2024 08:19-0400 Body mass index (BMI) [Ratio] 45.3 kg/m2 Dr. Radha Khan MD Work Phone: [facility] 06-10-2024 08:19-0400 Body temperature 97.2 [degF] Dr. Radha Khan MD Work Phone: [facility] 06-10-2024 08:19-0400 Body weight 139.[address] Radha Khan MD Work Phone: [facility] 06-10-2024 08:19-0400 Diastolic blood pressure 76 mm[Hg] Dr. Radha Khan MD Work Phone: [facility] 06-10-2024 08:19-0400 Heart rate 59 /min Dr. Radha Khan MD Work Phone: 2(005)168-255994 [place] [address] 06-10-2024 08:19-0400 Inhaled oxygen flow rate 4 L/min Dr. Radha Khan MD Work Phone: 1(145)978-601994 [place] [address] 06-10-2024 08:19-0400 Respiratory rate 20 /min Dr. Radha Khan MD Work Phone: 6(373)150-534422 [address] 06-10-2024 08:19-0400 SaO2% (BldA) [Mass fraction] 99 % Dr. Radha Khan MD Work Phone: 5(517)468-893594 [place] [address] 06-10-2024 08:19-0400 Systolic blood pressure 115 mm[Hg] Dr. Radha Khan MD Work Phone: 2(678)763-194394 [place] [address] 06-04-2024 13:50-0500 Body height 175.[address] Radha Khan MD Work Phone: 7(715)388-633626 [place] [address] 06-04-2024 13:50-0500 Body mass index (BMI) [Ratio] 45.1 kg/m2 Dr. Radha Khan MD Work Phone: 8(561)882-424794 [place] [address] 06-04-2024 13:50-0500 Body temperature 97.8 [degF] Dr. Radha Khan MD Work Phone: 9(422)410-789394 [place] [address] 06-04-2024 13:50-0500 Body weight 138.[address] Radha Khan MD Work Phone: 6(786)330-840394 [place] [address] 06-04-2024 13:50-0500 Diastolic blood pressure 61 mm[Hg] Dr. Radha Khan MD Work Phone: 0(963)830-500994 [place] [address] 06-04-2024 13:50-0500 Heart rate 59 /min Dr. Radha Khan MD Work Phone: [facility] 06-04-2024 13:50-0500 Inhaled oxygen flow rate 4 L/min Dr. Radha Khan MD Work Phone: [facility] 06-04-2024 13:50-0500 Respiratory rate 17 /min Dr. Radha Khan MD Work Phone: [facility] 06-04-2024 13:50-0500 SaO2% (BldA) [Mass fraction] 92 % Dr. Radha Khan MD Work Phone: 3(912)535-085894 [place] [address] 06-04-2024 13:50-0500 Systolic blood pressure 141 mm[Hg] Dr. Radha Khan MD Work Phone: 7(744)991-137194 [place] [address] 05-21-2024 10:44-0500 Body mass index (BMI) [Ratio] 43.7 kg/m2 Dr. Radha Khan MD Work Phone: 8(290)313-382022 [address] 05-21-2024 10:44-0500 Body weight 134.[address] Radha Khan MD Work Phone: 6(803)825-163822 [address] 05-21-2024 10:44-0500 Diastolic blood pressure 69 mm[Hg] Dr. Radha Khan MD Work Phone: 2(921)721-188494 [place] [address] 05-21-2024 10:44-0500 Heart rate 75 /min Dr. Radha Khan MD Work Phone: 3(290)929-693894 [place] [address] 05-21-2024 10:44-0500 Inhaled oxygen flow rate 4 L/min Dr. Radha Khan MD Work Phone: [facility] 05-21-2024 10:44-0500 Respiratory rate 18 /min Dr. Radha Khan MD Work Phone: [facility] 05-21-2024 10:44-0500 SaO2% (BldA) [Mass fraction] 100 % Dr. Radha Khan MD Work Phone: [facility] 05-21-2024 10:44-0500 Systolic blood pressure 105 mm[Hg] Dr. Radha Khan MD Work Phone: [facility] 05-06-2024 08:35-0500 Body temperature 96.69 [degF] Mey Bosz [employer] Work Phone: [facility] 05-06-2024 08:35-0500 Diastolic blood pressure 63 mm[Hg] Mey Bosz [employer] Work Phone: [facility] 05-06-2024 08:35-0500 Heart rate 72 /min Mey Bosz [employer] - [employer] Work Phone: [facility] 05-06-2024 08:35-0500 Respiratory rate 20 /min Mey Bosz [employer] - [employer] Work Phone: [facility] 05-06-2024 08:35-0500 SaO2% (BldA) [Mass fraction] 95 % Mey Bosz [employer] - [employer] Work Phone: [facility] 05-06-2024 08:35-0500 Systolic blood pressure 112 mm[Hg] Mey Bosz [employer] ASSEM[employer]ER - [employer]ERSON Work Phone: [facility] 05-05-2024 13:14-0500 Body temperature 98 [degF] Dr. Radha Khan MD Work Phone: [facility] 05-05-2024 13:14-0500 Diastolic blood pressure 63 mm[Hg] Dr. Radha Khan MD Work Phone: [facility] 05-05-2024 13:14-0500 Heart rate 66 /min Dr. Radha Khan MD Work Phone: [facility] 05-05-2024 13:14-0500 Respiratory rate 18 /min Dr. Radha Khan MD Work Phone: [facility] 05-05-2024 13:14-0500 SaO2% (BldA) [Mass fraction] 100 % Dr. Radha Khan MD Work Phone: [facility] 05-05-2024 13:14-0500 Systolic blood pressure 101 mm[Hg] Dr. Radha Khan MD Work Phone: 1(953)444-[address] [place] [address] 05-01-2024 12:31-0500 Body mass index (BMI) [Ratio] 44.4 kg/m2 Dr. Radha Khan MD Work Phone: 1(077)108-436026 [place] [address] 05-01-2024 12:31-0500 Body temperature 98.3 [degF] Dr. Radha Khan MD Work Phone: 6(216)695-898026 [place] [address] 05-01-2024 12:31-0500 Body weight 136.[address] Radha Khan MD Work Phone: 2(925)290-822126 [place] [address] 05-01-2024 12:31-0500 Diastolic blood pressure 60 mm[Hg] Dr. Radha Khan MD Work Phone: 9(545)217-721126 [place] [address] 05-01-2024 12:31-0500 Heart rate 70 /min Dr. Radha Khan MD Work Phone: 7(157)281-392826 [place] [address] 05-01-2024 12:31-0500 Inhaled oxygen flow rate 4 L/min Dr. Radha Khan MD Work Phone: 7(532)099-205626 [place] [address] 05-01-2024 12:31-0500 Respiratory rate 18 /min Dr. Radha Khan MD Work Phone: 8(976)464-701126 [place] [address] 05-01-2024 12:31-0500 SaO2% (BldA) [Mass fraction] 100 % Dr. Radha Khan MD Work Phone: 6(119)661-637994 [place] [address] 05-01-2024 12:31-0500 Systolic blood pressure 97 mm[Hg] Dr. Radha Khan MD Work Phone: 6(169)824-554026 [place] [address] 04-30-2024 14:32-0500 Body temperature 97.4 [degF] Dr. Radha Khan MD Work Phone: 2(605)091-614826 [place] [address] 04-30-2024 14:32-0500 Body weight 138.[address] Radha Khan MD Work Phone: 2(112)644-963026 [place] [address] 04-30-2024 14:32-0500 Diastolic blood pressure 58 mm[Hg] Dr. Radha Khan MD Work Phone: 6(965)125-253626 [address] [place] [address] 04-30-2024 14:32-0500 Heart rate 73 /min Dr. Radha Khan MD Work Phone: 3(001)118-079526 [place] [address] 04-30-2024 14:32-0500 Inhaled oxygen flow rate 4 L/min Dr. Radha Khan MD Work Phone: 4(372)488-312526 [place] [address] 04-30-2024 14:32-0500 Respiratory rate 18 /min Dr. Radha Khan MD Work Phone: 7(392)057-070826 [place] [address] 04-30-2024 14:32-0500 SaO2% (BldA) [Mass fraction] 94 % Dr. Radha Khan MD Work Phone: 7(358)174-739626 [place] [address] 04-30-2024 14:32-0500 Systolic blood pressure 111 mm[Hg] Dr. Radha Khan MD Work Phone: 7(749)657-630326 [place] [address] 04-30-2024 13:26-0500 Body mass index (BMI) [Ratio] 44.7 kg/m2 Dr. Radha Khan MD Work Phone: 8(366)933-458226 [place] [address] 04-30-2024 13:26-0500 Body weight 137.[address] Radha Khan MD Work Phone: 4(554)972-713326 [place] [address] 04-30-2024 13:26-0500 Diastolic blood pressure 55 mm[Hg] Dr. Radha Khan MD Work Phone: 5(975)927-481726 [place] [address] 04-30-2024 13:26-0500 Heart rate 69 /min Dr. Radha Khan MD Work Phone: 8(713)476-883026 [place] [address] 04-30-2024 13:26-0500 Respiratory rate 18 /min Dr. Radha Khan MD Work Phone: 1(476)617-091226 [place] [address] 04-30-2024 13:26-0500 Systolic blood pressure 97 mm[Hg] Dr. Radha Khan MD Work Phone: [facility] 04-30-2024 11:30-0500 Body mass index (BMI) [Ratio] 44.7 kg/m2 Dr. Radha Khan MD Work Phone: [facility] 04-30-2024 11:30-0500 Body temperature 98.2 [degF] Dr. Radha Khan MD Work Phone: 1(554)905-480394 [place] [address] 04-30-2024 11:30-0500 Body weight 137.[address] Radha Khan MD Work Phone: [facility] 04-30-2024 11:30-0500 Diastolic blood pressure 74 mm[Hg] Dr. Radha Khan MD Work Phone: 6(255)045-468194 [place] [address] 04-30-2024 11:30-0500 Heart rate 80 /min Dr. Radha Khan MD Work Phone: 4(733)783-632894 [place] [address] 04-30-2024 11:30-0500 Inhaled oxygen flow rate 4 L/min Dr. Radha Khan MD Work Phone: 7(772)236-755694 [place] [address] 04-30-2024 11:30-0500 Respiratory rate 17 /min Dr. Radha Khan MD Work Phone: [facility] 04-30-2024 11:30-0500 SaO2% (BldA) [Mass fraction] 95 % Dr. Radha Khan MD Work Phone: [facility] 04-30-2024 11:30-0500 Systolic blood pressure 120 mm[Hg] Dr. Radha Khan MD Work Phone: [facility] 04-27-2024 14:43-0500 Body height 175.3 cm Suzy Jauregui MD Work Phone: [facility] 04-27-2024 14:43-0500 Body mass index (BMI) [Ratio] 46.07 kg/m2 Suzy Jauregui MD Work Phone: [facility] 04-27-2024 14:43-0500 Body weight 141.52 kg Suzy Jauregui MD Work Phone: [facility] 04-27-2024 14:43-0500 Diastolic blood pressure 60 mm[Hg] Suzy Jauregui MD Work Phone: [facility] 04-27-2024 14:43-0500 Heart rate 75 /min Suzy Jauregui MD Work Phone: [facility] 04-27-2024 14:43-0500 Respiratory rate 18 /min Suzy Jauregui MD Work Phone: [facility] 04-27-2024 14:43-0500 SaO2% (BldA) [Mass fraction] 95 % Suzy Jauregui MD Work Phone: [facility] 04-27-2024 14:43-0500 Systolic blood pressure 122 mm[Hg] Suzy Jauregui MD Work Phone: [facility] 04-25-2024 16:19-0500 Body mass index (BMI) [Ratio] 44.6 kg/m2 Dr. Radha Khan MD Work Phone: [facility] 04-25-2024 14:00-0500 Body temperature 98.5 [degF] Dr. Radha Khan MD Work Phone: [facility] 04-25-2024 14:00-0500 Diastolic blood pressure 54 mm[Hg] Dr. Radha Khan MD Work Phone: [facility] 04-25-2024 14:00-0500 Heart rate 93 /min Dr. Radha Khan MD Work Phone: [facility] 04-25-2024 14:00-0500 Inhaled oxygen flow rate 3.5 L/min Dr. Radha Khan MD Work Phone: [facility] 04-25-2024 14:00-0500 Respiratory rate 16 /min Dr. Radha Khan MD Work Phone: [facility] 04-25-2024 14:00-0500 SaO2% (BldA) [Mass fraction] 100 % Dr. Radha Khan MD Work Phone: 6(413)108-418726 [place] [address] 04-25-2024 14:00-0500 Systolic blood pressure 113 mm[Hg] Dr. Radha Khan MD Work Phone: 8(937)607-613726 [place] [address] 04-25-2024 09:20-0500 Body weight 137.[address] Radha Kahn MD Work Phone: 7(943)703-895826 [place] [address] 04-22-2024 09:35-0500 Body mass index (BMI) [Ratio] 45.6 kg/m2 Dr. Radha Khan MD Work Phone: 8(012)447-239226 [place] [address] 04-22-2024 09:35-0500 Body temperature 97.3 [degF] Dr. Radha Khan MD Work Phone: 1(465)169-435226 [place] [address] 04-22-2024 09:35-0500 Body weight 140.[address] Radha Khan MD Work Phone: 8(696)021-201626 [place] [address] 04-22-2024 09:35-0500 Diastolic blood pressure 76 mm[Hg] Dr. Radha Khan MD Work Phone: 0(440)290-358726 [place] [address] 04-22-2024 09:35-0500 Heart rate 67 /min Dr. Radha Khan MD Work Phone: 2(636)839-987626 [place] [address] 04-22-2024 09:35-0500 Inhaled oxygen flow rate 4 L/min Dr. Radha Khan MD Work Phone: 5(074)850-439126 [place] [address] 04-22-2024 09:35-0500 Respiratory rate 20 /min Dr. Radha Khan MD Work Phone: 0(915)177-982826 [place] [address] 04-22-2024 09:35-0500 SaO2% (BldA) [Mass fraction] 99 % Dr. Radha Khan MD Work Phone: 5(473)713-268626 [place] [address] 04-22-2024 09:35-0500 Systolic blood pressure 143 mm[Hg] Dr. Radha Khan MD Work Phone: 7(458)060-708426 [place] [address] 04-16-2024 09:22-0500 Body mass index (BMI) [Ratio] 44.9 kg/m2 Dr. Radha Khan MD Work Phone: [facility] 04-16-2024 09:22-0500 Body weight 138.[address] Radha Khan MD Work Phone: [facility] 04-16-2024 09:22-0500 Diastolic blood pressure 56 mm[Hg] Dr. Radha Khan MD Work Phone: 5(287)388-130394 [place] [address] 04-16-2024 09:22-0500 Heart rate 79 /min Dr. Radha Khan MD Work Phone: 1(676)131-314394 [place] [address] 04-16-2024 09:22-0500 Inhaled oxygen flow rate 4 L/min Dr. Radha Khan MD Work Phone: 0(380)805-820622 [address] 04-16-2024 09:22-0500 SaO2% (BldA) [Mass fraction] 78 % Dr. Radha Khan MD Work Phone: 0(096)132-021894 [place] [address] 04-16-2024 09:22-0500 Systolic blood pressure 105 mm[Hg] Dr. Radha Khan MD Work Phone: 8(354)926-083594 [place] [address] 04-15-2024 16:08-0500 Inhaled oxygen flow rate 4 L/min Dr. Radha Khan MD Work Phone: [facility] 04-15-2024 14:26-0500 Body temperature 97.9 [degF] Dr. Radha Khan MD Work Phone: 6(743)948-976194 [place] [address] 04-15-2024 14:26-0500 Diastolic blood pressure 66 mm[Hg] Dr. Radha Khan MD Work Phone: [facility] 04-15-2024 14:26-0500 Heart rate 79 /min Dr. Radha Khan MD Work Phone: [facility] 04-15-2024 14:26-0500 Respiratory rate 16 /min Dr. Radha Khan MD Work Phone: [facility] 04-15-2024 14:26-0500 SaO2% (BldA) [Mass fraction] 94 % Dr. Radha Khan MD Work Phone: [facility] 04-15-2024 14:26-0500 Systolic blood pressure 102 mm[Hg] Dr. Radha Khan MD Work Phone: [facility] 04-15-2024 03:24-0500 Body mass index (BMI) [Ratio] 44.5 kg/m2 Dr. Radha Khan MD Work Phone: [facility] 04-15-2024 03:24-0500 Body weight 136.[address] Radha Khan MD Work Phone: [facility] 04-13-2024 20:00-0500 Inhaled oxygen concentration 91 % Dr. Radha Khan MD Work Phone: [facility] 01-06-2024 10:49-0400 Body height 175.3 cm Oziel Culp MD Work Phone: [facility] 01-06-2024 10:49-0400 Body mass index (BMI) [Ratio] 46.07 kg/m2 Oziel Culp MD Work Phone: [facility] 01-06-2024 10:49-0400 Body weight 141.52 kg Oziel Culp MD Work Phone: [facility] 01-06-2024 10:49-0400 Diastolic blood pressure 72 mm[Hg] Oziel Culp MD Work Phone: [facility] [email or web address] 01-06-2024 10:49-0400 Heart rate 72 /min Oziel Culp MD Work Phone: [facility] 01-06-2024 10:49-0400 Systolic blood pressure 110 mm[Hg] Oziel Culp MD Work Phone: [facility] 10-05-2023 13:16-0400 Body temperature 97.39 [degF] Joe Rocha MD Work Phone: [facility] [email or web address] 10-05-2023 13:16-0400 Diastolic blood pressure 70 mm[Hg] Joe Rocha MD Work Phone: [facility] 10-05-2023 13:16-0400 Heart rate 83 /min Joe Rocha MD Work Phone: [facility] 10-05-2023 13:16-0400 Respiratory rate 20 /min Joe Rocha MD Work Phone: [facility] 10-05-2023 13:16-0400 SaO2% (BldA) [Mass fraction] 95 % Joe Rocha MD Work Phone: [facility] 10-05-2023 13:16-0400 Systolic blood pressure 107 mm[Hg] Joe Rocha MD Work Phone: [facility] 10-03-2023 15:30-0400 Body temperature 98.06 [degF] CHITO MEDLEY-GABRIELA [employer] [facility] 10-03-2023 15:30-0400 Diastolic Blood Pressure Non-Invasive 73 mm[Hg] CHITO MEDLEY-GABRIELA [employer] [facility] 10-03-2023 15:30-0400 Heart rate 82 /min CHITO MEDLEY-GABRIELA [employer] [facility] 10-03-2023 15:30-0400 Reason For Taking VItal Signs CHITO MEDLEY-GABRIELA [employer] [facility] 10-03-2023 15:30-0400 Respiratory rate 18 /min CHITO MEDLEY-GABRIELA [employer] [facility] 10-03-2023 15:30-0400 Systolic Blood Pressure Non-Invasive 109 mm[Hg] CHITO GALINDO-GABRIELA [employer] [facility] 10-03-2023 13:12-0400 Reason For Taking VItal Signs CHITO MEDLEY-GABRIELA [employer] [facility] 10-03-2023 11:39-0400 Body temperature 98.24 [degF] CHITO GALINDO-GABRIELA [employer] [facility] 10-03-2023 11:39-0400 Diastolic Blood Pressure Non-Invasive 66 mm[Hg] CHITO MEDLEY-GABRIELA [employer] [facility] 10-03-2023 11:39-0400 Heart rate 80 /min CHITO GALINDOFedericoGABRIELA [employer] [facility] 10-03-2023 11:39-0400 Reason For Taking VItal Signs CHITO MEDLEYFedericoGABRIELA [employer] [facility] 10-03-2023 11:39-0400 Respiratory rate 18 /min CHITO MEDLEYFedericoGABRIELA [employer] [facility] 10-03-2023 11:39-0400 Systolic Blood Pressure Non-Invasive 112 mm[Hg] CHITO GALINDO-GABRIELA [employer] [facility] 10-03-2023 08:27-0400 Heart rate 79 /min CHITO GALINDO-GABRIELA [employer] [facility] 10-03-2023 06:05-0400 Body temperature 97.88 [degF] CHITO MEDLEY-GABRIELA [employer] [facility] 10-03-2023 06:05-0400 Diastolic Blood Pressure Non-Invasive 76 mm[Hg] CHITO MEDLEY-GABRIELA [employer] [facility] 10-03-2023 06:05-0400 Heart rate 71 /min CHITO MEDLEY-GABRIELA [employer] [facility] 10-03-2023 06:05-0400 Respiratory rate 18 /min CHITO MEDLEY-GABRIELA [employer] [facility] 10-03-2023 06:05-0400 Systolic Blood Pressure Non-Invasive 112 mm[Hg] CHITO MEDLEY-GABRIELA [employer] [address] [place] [address] 10-02-2023 08:45-0400 Heart rate 76 /min CHITO MEDLEY-GABRIELA [employer] [address] [place] [address] 10-02-2023 03:49-0400 Heart rate 85 /min CHITO MEDLEY-GABRIELA [employer] [address] [place] [address] 10-02-2023 01:23-0400 Body height 175.3 cm CHITO MEDLEY-GABRIELA [employer] [address] [place] [address] 10-02-2023 01:23-0400 Body weight 144.7 kg CHITO MEDLEY-GABRIELA [employer] [address] [place] [address] 10-02-2023 01:23-0400 Body weight 47.09 kg/m2 CHITO GALINDO-GABRIELA [employer] [address] [place] [address] 10-02-2023 01:17-0400 Heart rate 71 /min CHITO MEDLEY-GABRIELA [employer] [address] [place] [address] 10-02-2023 00:30-0400 Heart rate 82 /min CHITO MEDLEY-GABRIELA [employer] [facility] 07-17-2023 15:35-0400 Body temperature 98.2 [degF] Dr. Radha Khan Work Phone: [facility] 07-17-2023 15:35-0400 Body weight 146.[address] Radha Khan Work Phone: [facility] 07-17-2023 15:35-0400 Diastolic blood pressure 67 mm[Hg] Dr. Radha Khan Work Phone: [facility] 07-17-2023 15:35-0400 Heart rate 80 /min Dr. Radha Khan Work Phone: [facility] 07-17-2023 15:35-0400 Respiratory rate 16 /min Dr. Radha Khan Work Phone: [facility] 07-17-2023 15:35-0400 SaO2% (BldA) [Mass fraction] 95 % Dr. Radha Khan Work Phone: [facility] 07-17-2023 15:35-0400 Systolic blood pressure 121 mm[Hg] Dr. Radha Khan Work Phone: 3(958)679-493794 [place] [address] 07-03-2023 11:02-0400 Body height 175.[address] Radha Khan Work Phone: [facility] 07-03-2023 11:02-0400 Body mass index (BMI) [Ratio] 48.1 kg/m2 Dr. Radha Khan Work Phone: [facility] 07-03-2023 11:02-0400 Body weight 147.[address] Radha Khan Work Phone: [facility] 07-03-2023 11:02-0400 Respiratory rate 16 /min Dr. Radha Khan Work Phone: [facility] 05-21-2023 14:43-0500 Body height 175.[address] Radha Khan Work Phone: 8(500)102-928194 [place] [address] 05-21-2023 14:43-0500 Body mass index (BMI) [Ratio] 48.1 kg/m2 Dr. Radha Khan Work Phone: [facility] 05-21-2023 14:43-0500 Body temperature 97.6 [degF] Dr. Radha Khan Work Phone: [facility] 05-21-2023 14:43-0500 Body weight 147.[address] Radha Khan Work Phone: [facility] 05-21-2023 14:43-0500 Diastolic blood pressure 81 mm[Hg] Dr. Radha Khan Work Phone: [facility] 05-21-2023 14:43-0500 Heart rate 83 /min Dr. Radha Khan Work Phone: [facility] 05-21-2023 14:43-0500 Respiratory rate 18 /min Dr. Radha Khan Work Phone: [facility] 05-21-2023 14:43-0500 SaO2% (BldA) [Mass fraction] 97 % Dr. Radha Khan Work Phone: [facility] 05-21-2023 14:43-0500 Systolic blood pressure 121 mm[Hg] Dr. Radha Khan Work Phone: [facility] 05-20-2023 13:21-0500 Body mass index (BMI) [Ratio] 48.3 kg/m2 Dr. Radha Khan Work Phone: [facility] 05-20-2023 13:21-0500 Body temperature 98.6 [degF] Dr. Radha Khan Work Phone: [facility] 05-20-2023 13:21-0500 Body weight 148.[address] Radha Khan Work Phone: [facility] 05-20-2023 13:21-0500 Diastolic blood pressure 68 mm[Hg] Dr. Radha Kahn Work Phone: [facility] 05-20-2023 13:21-0500 Heart rate 76 /min Dr. Radha Khan Work Phone: [facility] 05-20-2023 13:21-0500 Respiratory rate 16 /min Dr. Radha Khan Work Phone: [facility] 05-20-2023 13:21-0500 SaO2% (BldA) [Mass fraction] 98 % Dr. Radha Khan Work Phone: [facility] 05-20-2023 13:21-0500 Systolic blood pressure 102 mm[Hg] Dr. Radha Khan Work Phone: [facility] 03-12-2023 12:03-0500 Diastolic blood pressure 72 mm[Hg] Dr. Radha Khan Work Phone: [facility] 03-12-2023 12:03-0500 Heart rate 101 /min Dr. Radha Khan Work Phone: [facility] 03-12-2023 12:03-0500 Systolic blood pressure 96 mm[Hg] Dr. Radha Khan Work Phone: [facility] 03-12-2023 08:59-0500 Body height 175.[address] Radha Khan Work Phone: [facility] 03-12-2023 08:59-0500 Body mass index (BMI) [Ratio] 47.1 kg/m2 Dr. Radha Khan Work Phone: [facility] 03-12-2023 08:59-0500 Body temperature 97.7 [degF] Dr. Radha Khan Work Phone: [facility] 03-12-2023 08:59-0500 Body weight 144.[address] Radha Khan Work Phone: [facility] 03-12-2023 08:59-0500 Respiratory rate 17 /min Dr. Radha Khan Work Phone: [facility] 03-12-2023 08:59-0500 SaO2% (BldA) [Mass fraction] 97 % Dr. Radha Khan Work Phone: [facility] 02-27-2023 10:43-0500 Body height 175.[address] Radha Khan Work Phone: [facility] 02-27-2023 10:43-0500 Body mass index (BMI) [Ratio] 46.9 kg/m2 Dr. Radha Khan Work Phone: [facility] 02-27-2023 10:43-0500 Body weight 144.[address] Radha Khan Work Phone: [facility] 02-27-2023 10:43-0500 Diastolic blood pressure 71 mm[Hg] Dr. Radha Khan Work Phone: [facility] 02-27-2023 10:43-0500 Heart rate 73 /min Dr. Radha Khan Work Phone: [facility] 02-27-2023 10:43-0500 Respiratory rate 20 /min Dr. Radha Khan Work Phone: [facility] 02-27-2023 10:43-0500 SaO2% (BldA) [Mass fraction] 100 % Dr. Radha Khan Work Phone: [facility] 02-27-2023 10:43-0500 Systolic blood pressure 103 mm[Hg] Dr. Radha Khan Work Phone: [facility] 02-18-2023 11:05-0500 Body temperature 97.8 [degF] Dr. Radha Khan Work Phone: [facility] 02-18-2023 11:05-0500 Diastolic blood pressure 63 mm[Hg] Dr. Radha Khan Work Phone: [facility] 02-18-2023 11:05-0500 Heart rate 69 /min Dr. Radha Khan Work Phone: [facility] 02-18-2023 11:05-0500 Respiratory rate 16 /min Dr. Radha Khan Work Phone: [facility] 02-18-2023 11:05-0500 SaO2% (BldA) [Mass fraction] 96 % Dr. Radha Khan Work Phone: [facility] 02-18-2023 11:05-0500 Systolic blood pressure 132 mm[Hg] Dr. Radha Khan Work Phone: [facility] 02-18-2023 09:54-0500 Body height 175.[address] Radha Khan Work Phone: [facility] 02-18-2023 09:54-0500 Body mass index (BMI) [Ratio] 47.5 kg/m2 Dr. Radha Khan Work Phone: [facility] 02-18-2023 09:54-0500 Body weight [address] Radha Khan Work Phone: 8(065)939-872822 [address] 02-04-2023 13:15-0500 Body mass index (BMI) [Ratio] 48.2 kg/m2 Dr. Radha Khan Work Phone: 4(633)383-800094 [place] [address] 02-04-2023 13:15-0500 Body temperature 98 [degF] Dr. Radha Khan Work Phone: [facility] 02-04-2023 13:15-0500 Body weight 148.[address] Radha Khan Work Phone: [facility] 02-04-2023 13:15-0500 Diastolic blood pressure 62 mm[Hg] Dr. Radha Khan Work Phone: 4(050)481-954294 [place] [address] 02-04-2023 13:15-0500 Heart rate 80 /min Dr. Radha Khan Work Phone: [facility] 02-04-2023 13:15-0500 Respiratory rate 18 /min Dr. Radha Khan Work Phone: [facility] 02-04-2023 13:15-0500 SaO2% (BldA) [Mass fraction] 98 % Dr. Radha Khan Work Phone: [facility] 02-04-2023 13:15-0500 Systolic blood pressure 100 mm[Hg] Dr. Radha Khan Work Phone: 1(902)257-591094 [place] [address] 01-01-2023 14:11-0400 Body height 175.[address] Radha Khan Work Phone: 0(883)999-095594 [place] [address] 01-01-2023 14:11-0400 Body mass index (BMI) [Ratio] 47.8 kg/m2 Dr. Radha Khan Work Phone: 9(614)219-789394 [place] [address] 01-01-2023 14:11-0400 Body temperature 97.3 [degF] Dr. Radha Khan Work Phone: 2(326)907-864194 [place] [address] 01-01-2023 14:11-0400 Body weight 146.[address] Radha Khan Work Phone: 2(800)994-933926 [place] [address] 01-01-2023 14:11-0400 Diastolic blood pressure 67 mm[Hg] Dr. Radha Khan Work Phone: 6(139)868-562226 [place] [address] 01-01-2023 14:11-0400 Heart rate 75 /min Dr. Radha Khan Work Phone: 9(964)666-169826 [place] [address] 01-01-2023 14:11-0400 Respiratory rate 17 /min Dr. Radha Khan Work Phone: 4(760)395-703794 [place] [address] 01-01-2023 14:11-0400 SaO2% (BldA) [Mass fraction] 98 % Dr. Radha Khan Work Phone: 0(506)031-130694 [place] [address] 01-01-2023 14:11-0400 Systolic blood pressure 106 mm[Hg] Dr. Radha hKan Work Phone: 9(428)567-467594 [place] [address] 12-10-2022 11:33-0400 Body mass index (BMI) [Ratio] 47.8 kg/m2 Dr. Radha Khan Work Phone: 2(145)373-304794 [place] [address] 12-10-2022 11:33-0400 Body temperature 98.3 [degF] Dr. Radha Khan Work Phone: 7(620)271-215894 [place] [address] 12-10-2022 11:33-0400 Body weight 146.[address] Radha Khan Work Phone: 4(310)128-342094 [place] [address] 12-10-2022 11:33-0400 Diastolic blood pressure 70 mm[Hg] Dr. Radha Khan Work Phone: [facility] 12-10-2022 11:33-0400 Heart rate 72 /min Dr. Radha Khan Work Phone: [facility] 12-10-2022 11:33-0400 Respiratory rate 16 /min Dr. Radha Khan Work Phone: [facility] 12-10-2022 11:33-0400 SaO2% (BldA) [Mass fraction] 96 % Dr. Radha Khan Work Phone: 5(989)604-890394 [place] [address] 12-10-2022 11:33-0400 Systolic blood pressure 118 mm[Hg] Dr. Radha Khan Work Phone: 4(586)056-372294 [place] [address] 10-08-2022 14:22-0400 Diastolic blood pressure 72 mm[Hg] Dr. Radha Khan Work Phone: 7(756)998-169294 [place] [address] 10-08-2022 14:22-0400 Systolic blood pressure 107 mm[Hg] Dr. Radha Khan Work Phone: 8(236)294-679594 [place] [address] 09-03-2022 13:57-0400 Body height 175.[address] Radha Khan Work Phone: [facility] 09-03-2022 13:57-0400 Body mass index (BMI) [Ratio] 47 kg/m2 Dr. Radha Khan Work Phone: [facility] 09-03-2022 13:57-0400 Body temperature 98.6 [degF] Dr. Radha Khan Work Phone: 1(560)094-926294 [place] [address] 09-03-2022 13:57-0400 Body weight 144.[address] Radha Khan Work Phone: [facility] 09-03-2022 13:57-0400 Diastolic blood pressure 56 mm[Hg] Dr. Radha Khan Work Phone: [facility] 09-03-2022 13:57-0400 Heart rate 62 /min Dr. Radha Khan Work Phone: [facility] 09-03-2022 13:57-0400 Respiratory rate 16 /min Dr. Radha Khan Work Phone: [facility] 09-03-2022 13:57-0400 SaO2% (BldA) [Mass fraction] 94 % Dr. Radha Khan Work Phone: [facility] 09-03-2022 13:57-0400 Systolic blood pressure 90 mm[Hg] Dr. Radha Khan Work Phone: [facility] 08-03-2022 15:30-0400 Body mass index (BMI) [Ratio] 45.4 kg/m2 Dr. Radha Khan Work Phone: [facility] 08-03-2022 15:20-0400 Body temperature 97.9 [degF] Dr. Radha Khan Work Phone: [facility] 08-03-2022 15:20-0400 Diastolic blood pressure 78 mm[Hg] Dr. Radha Khan Work Phone: [facility] 08-03-2022 15:20-0400 Heart rate 107 /min Dr. Radha Khan Work Phone: [facility] 08-03-2022 15:20-0400 Respiratory rate 16 /min Dr. Radha Khan Work Phone: [facility] 08-03-2022 15:20-0400 SaO2% (BldA) [Mass fraction] 97 % Dr. Radha Khan Work Phone: [facility] 08-03-2022 15:20-0400 Systolic blood pressure 144 mm[Hg] Dr. Radha Khan Work Phone: [facility] 08-03-2022 05:22-0400 Body mass index (BMI) [Ratio] 45.4 kg/m2 Dr. Radha Khan Work Phone: [facility] 08-03-2022 05:22-0400 Body weight 139.[address] Radha Khan Work Phone: [facility] 08-02-2022 10:53-0400 Body height 175.[address] Radha Khan Work Phone: [facility] 06-18-2022 14:14-0400 Body height 175.[address] Radha Khan Work Phone: [facility] 06-18-2022 14:14-0400 Body mass index (BMI) [Ratio] 45.8 kg/m2 Dr. Radha Khan Work Phone: [facility] 06-18-2022 14:14-0400 Body temperature 96.7 [degF] Dr. Radha Khan Work Phone: [facility] 06-18-2022 14:14-0400 Body weight 140.[address] Radha Khan Work Phone: [facility] 06-18-2022 14:14-0400 Diastolic blood pressure 70 mm[Hg] Dr. Radha Khan Work Phone: [facility] 06-18-2022 14:14-0400 Heart rate 81 /min Dr. Radha Khan Work Phone: [facility] 06-18-2022 14:14-0400 Respiratory rate 18 /min Dr. Radha Khan Work Phone: [facility] 06-18-2022 14:14-0400 SaO2% (BldA) [Mass fraction] 98 % Dr. Radha Khan Work Phone: [facility] 06-18-2022 14:14-0400 Systolic blood pressure 110 mm[Hg] Dr. Radha Khan Work Phone: [facility] 06-12-2022 07:50-0400 Body mass index (BMI) [Ratio] 45.8 kg/m2 Dr. Radha Khan Work Phone: [facility] 06-12-2022 07:50-0400 Body temperature 97.3 [degF] Dr. Radha Khan Work Phone: [facility] 06-12-2022 07:50-0400 Body weight 140.[address] Radha Khan Work Phone: [facility] 06-12-2022 07:50-0400 Diastolic blood pressure 72 mm[Hg] Dr. Radha Khan Work Phone: [facility] 06-12-2022 07:50-0400 Heart rate 83 /min Dr. Radha Khan Work Phone: [facility] 06-12-2022 07:50-0400 Respiratory rate 18 /min Dr. Radha Khan Work Phone: [facility] 06-12-2022 07:50-0400 SaO2% (BldA) [Mass fraction] 97 % Dr. Radha Khan Work Phone: [facility] 06-12-2022 07:50-0400 Systolic blood pressure 115 mm[Hg] Dr. Radha Khan Work Phone: [facility] 05-21-2022 15:09-0500 Diastolic blood pressure 80 mm[Hg] Dr. Radha Khan Work Phone: [facility] 05-21-2022 15:09-0500 Systolic blood pressure 130 mm[Hg] Dr. Radha Khan Work Phone: [facility] 05-21-2022 15:09-0500 Body mass index (BMI) [Ratio] 45.6 kg/m2 Dr. Radah Khan Work Phone: [facility] 05-21-2022 15:09-0500 Body weight 140.[address] Radha Khan Work Phone: [facility] 05-21-2022 15:09-0500 Heart rate 80 /min Dr. Radha Khan Work Phone: [facility] 05-21-2022 15:09-0500 Respiratory rate 18 /min Dr. Radha Khan Work Phone: [facility] 05-21-2022 15:09-0500 SaO2% (BldA) [Mass fraction] 94 % Dr. Radha Khan Work Phone: [facility] 05-09-2022 08:42-0500 Body height 175.[address] Radha Khan Work Phone: 1(985)282-693894 [place] [address] 05-09-2022 08:42-0500 Body weight 136.[address] Radha Khan Work Phone: 4(374)909-719422 [address] 05-08-2022 08:18-0500 Body mass index (BMI) [Ratio] 44.6 kg/m2 Dr. Radha Khan Work Phone: 8(398)[phone] [address] 05-03-2022 08:34-0500 Body mass index (BMI) [Ratio] 44.6 kg/m2 Dr. Radha Khan Work Phone: 6(888)[phone] [address] 05-03-2022 08:34-0500 Body weight 136.[address] Radha Khan Work Phone: 8(846)893-064726 [place] [address] 05-03-2022 08:34-0500 Diastolic blood pressure 84 mm[Hg] Dr. Radha Khan Work Phone: 9(530)750-242494 [place] [address] 05-03-2022 08:34-0500 Heart rate 92 /min Dr. Radha Khan Work Phone: 3(807)626-535694 [place] [address] 05-03-2022 08:34-0500 Respiratory rate 20 /min Dr. Radha Khan Work Phone: 6(328)904-023394 [place] [address] 05-03-2022 08:34-0500 SaO2% (BldA) [Mass fraction] 95 % Dr. Radha Khan Work Phone: 7(998)[phone] [place] [address] 05-03-2022 08:34-0500 Systolic blood pressure 143 mm[Hg] Dr. Radha Khan Work Phone: 0(659)[phone] [address] 03-12-2022 10:43-0500 Body height 175.[address] Radha Khan Work Phone: [facility] 03-12-2022 10:43-0500 Body mass index (BMI) [Ratio] 45.6 kg/m2 Dr. Radha Khan Work Phone: [facility] 03-12-2022 10:43-0500 Body temperature 97.2 [degF] Dr. Radha Khan Work Phone: [facility] 03-12-2022 10:43-0500 Body weight 140.[address] Radha Khan Work Phone: [facility] 03-12-2022 10:43-0500 Diastolic blood pressure 59 mm[Hg] Dr. Radha Khan Work Phone: [facility] 03-12-2022 10:43-0500 Heart rate 78 /min Dr. Radha Khan Work Phone: [facility] 03-12-2022 10:43-0500 Respiratory rate 18 /min Dr. Radha Khan Work Phone: [facility] 03-12-2022 10:43-0500 SaO2% (BldA) [Mass fraction] 92 % Dr. Radha Khan Work Phone: [facility] 03-12-2022 10:43-0500 Systolic blood pressure 92 mm[Hg] Dr. Radha Khan Work Phone: [facility] 02-19-2022 08:31-0500 Body height 175.[address] Radha Khan Work Phone: [facility] Work Phone: 02-19-2022 08:31-0500 Body mass index (BMI) [Ratio] 45.8 kg/m2 Dr. Radha Khan Work Phone: [facility] 02-19-2022 08:31-0500 Body weight 140.[address] Radha Khan Work Phone: [facility] 02-19-2022 08:31-0500 Diastolic blood pressure 64 mm[Hg] Dr. Radha Khan Work Phone: [facility] 02-19-2022 08:31-0500 Heart rate 68 /min Dr. Radha Khan Work Phone: [facility] 02-19-2022 08:31-0500 Respiratory rate 18 /min Dr. Radha Khan Work Phone: [facility] 02-19-2022 08:31-0500 Systolic blood pressure 125 mm[Hg] Dr. Radha Khan Work Phone: [facility] 02-16-2022 12:47-0500 Body weight 136.[address] Radha Khan Work Phone: [facility] 02-16-2022 12:47-0500 Heart rate 77 /min Dr. Radha Khan Work Phone: [facility] 02-16-2022 12:47-0500 Inhaled oxygen flow rate 2 L/min Dr. Radha Khan Work Phone: [facility] 02-16-2022 12:47-0500 SaO2% (BldA) [Mass fraction] 98 % Dr. Radha Khan Work Phone: [facility] 02-12-2022 08:54-0500 Body mass index (BMI) [Ratio] 44.6 kg/m2 Dr. Radha Khan Work Phone: [facility] 02-12-2022 08:54-0500 Body temperature 98.2 [degF] Dr. Radha Khan Work Phone: [facility] 02-12-2022 08:54-0500 Body weight 137.[address] Radha Khan Work Phone: [facility] 02-12-2022 08:54-0500 Diastolic blood pressure 78 mm[Hg] Dr. Radha Khan Work Phone: [facility] 02-12-2022 08:54-0500 Heart rate 69 /min Dr. Radha Khan Work Phone: [facility] 02-12-2022 08:54-0500 Respiratory rate 18 /min Dr. Radha Khan Work Phone: [facility] 02-12-2022 08:54-0500 SaO2% (BldA) [Mass fraction] 98 % Dr. Radha Khan Work Phone: [facility] 02-12-2022 08:54-0500 Systolic blood pressure 122 mm[Hg] Dr. Radha Khan Work Phone: [facility] 01-15-2022 10:51-0400 Body mass index (BMI) [Ratio] 45.5 kg/m2 Dr. Radha Khan Work Phone: 7(956)572-033294 [place] [address] 01-15-2022 10:51-0400 Body temperature 97 [degF] Dr. Radha Khan Work Phone: 9(375)[phone] [place] [address] 01-15-2022 10:51-0400 Body weight 139.[address] Radha Khan Work Phone: 0(753)[phone] [place] [address] 01-15-2022 10:51-0400 Diastolic blood pressure 76 mm[Hg] Dr. Radha Khan Work Phone: [facility] 01-15-2022 10:51-0400 Heart rate 76 /min Dr. Radha Khan Work Phone: [facility] 01-15-2022 10:51-0400 Respiratory rate 18 /min Dr. Radha Khan Work Phone: [facility] 01-15-2022 10:51-0400 SaO2% (BldA) [Mass fraction] 93 % Dr. Radha Khan Work Phone: [facility] 01-15-2022 10:51-0400 Systolic blood pressure 124 mm[Hg] Dr. Radha Khan Work Phone: [facility] 11-13-2021 15:28-0400 Body mass index (BMI) [Ratio] 44.6 kg/m2 Dr. Radha Khan Work Phone: [facility] Work Phone: 11-13-2021 15:28-0400 Body weight 136.[address] Radha Khan Work Phone: [facility] Work Phone: 11-13-2021 15:28-0400 Diastolic blood pressure 64 mm[Hg] Dr. Radha Khan Work Phone: [facility] Work Phone: 11-13-2021 15:28-0400 Heart rate 79 /min Dr. Radha Khan Work Phone: [facility] Work Phone: 11-13-2021 15:28-0400 Respiratory rate 18 /min Dr. Radha Khan Work Phone: [facility] Work Phone: 11-13-2021 15:28-0400 Systolic blood pressure 110 mm[Hg] Dr. Radha Khan Work Phone: [facility] Work Phone: 09-07-2021 14:21-0400 Body height 175.[address] Radha Khan Work Phone: [facility] Work Phone: 09-07-2021 14:21-0400 Body mass index (BMI) [Ratio] 45 kg/m2 Dr. Radha Khan Work Phone: [facility] Work Phone: 09-07-2021 14:21-0400 Body weight 138.[address] Radha Khan Work Phone: [facility] Work Phone: 09-07-2021 14:21-0400 Diastolic blood pressure 79 mm[Hg] Dr. Radha Khan Work Phone: [facility] Work Phone: 09-07-2021 14:21-0400 Heart rate 79 /min Dr. Radha Khan Work Phone: [facility] Work Phone: 09-07-2021 14:21-0400 Respiratory rate 18 /min Dr. Radha Khan Work Phone: [facility] Work Phone: 09-07-2021 14:21-0400 SaO2% (BldA) [Mass fraction] 96 % Dr. Radha Khan Work Phone: [facility] Work Phone: 09-07-2021 14:21-0400 Systolic blood pressure 153 mm[Hg] Dr. Radha Khan Work Phone: [facility] Work Phone: 09-04-2021 10:10-0400 Diastolic blood pressure 82 mm[Hg] Dr. Radha Khan Work Phone: [facility] Work Phone: 09-04-2021 10:10-0400 Systolic blood pressure 172 mm[Hg] Dr. Radha Khan Work Phone: [facility] Work Phone: 09-04-2021 09:10-0400 Heart rate 78 /min Dr. Radha Khan Work Phone: [facility] Work Phone: 09-04-2021 09:10-0400 SaO2% (BldA) [Mass fraction] 95 % Dr. Radha Khan Work Phone: [facility] Work Phone: 09-04-2021 08:44-0400 Respiratory rate 16 /min Dr. Radha Khan Work Phone: [facility] Work Phone: 09-04-2021 06:22-0400 Body height 175.[address] Radha Khan Work Phone: [facility] Work Phone: 09-04-2021 06:22-0400 Body mass index (BMI) [Ratio] 45.1 kg/m2 Dr. Radha Khan Work Phone: [facility] Work Phone: 09-04-2021 06:22-0400 Body temperature 97.4 [degF] Dr. Radha Kahn Work Phone: [facility] Work Phone: 09-04-2021 06:22-0400 Body weight 138.[address] Radha Khan Work Phone: [facility] Work Phone: 08-10-2021 13:42-0400 Body mass index (BMI) [Ratio] 44.5 kg/m2 Dr. Radha Khan Work Phone: [facility] Work Phone: 08-10-2021 13:42-0400 Body temperature 95.7 [degF] Dr. Radha Khan Work Phone: [facility] Work Phone: 08-10-2021 13:42-0400 Body weight 136.[address] Radha Khan Work Phone: [facility] Work Phone: 08-10-2021 13:42-0400 Diastolic blood pressure 80 mm[Hg] Dr. Radha Khan Work Phone: [facility] Work Phone: 08-10-2021 13:42-0400 Heart rate 84 /min Dr. Radha Khan Work Phone: [facility] Work Phone: 08-10-2021 13:42-0400 Respiratory rate 18 /min Dr. Radha Khan Work Phone: [facility] Work Phone: 08-10-2021 13:42-0400 SaO2% (BldA) [Mass fraction] 96 % Dr. Radha Khan Work Phone: [facility] Work Phone: 08-10-2021 13:42-0400 Systolic blood pressure 140 mm[Hg] Dr. Radha Khan Work Phone: [facility] Work Phone: 08-10-2021 13:42-0400 Body height 175.[address] Radha Khan Work Phone: [facility] Work Phone: 08-10-2021 13:42-0400 Body mass index (BMI) [Ratio] 44.5 kg/m2 Dr. Radha Khan Work Phone: [facility] Work Phone: 08-10-2021 13:42-0400 Body temperature 95.7 [degF] Dr. Radha Khan Work Phone: [facility] Work Phone: 08-10-2021 13:42-0400 Body weight 136.[address] Radha Khan Work Phone: [facility] Work Phone: 08-10-2021 13:42-0400 Diastolic blood pressure 80 mm[Hg] Dr. Radha Khan Work Phone: [facility] Work Phone: 08-10-2021 13:42-0400 Heart rate 84 /min Dr. Radha Khan Work Phone: [facility] Work Phone: 08-10-2021 13:42-0400 Respiratory rate 18 /min Dr. Radha Khan Work Phone: [facility] Work Phone: 08-10-2021 13:42-0400 SaO2% (BldA) [Mass fraction] 96 % Dr. Radha Khan Work Phone: [facility] Work Phone: 08-10-2021 13:42-0400 Systolic blood pressure 140 mm[Hg] Dr. Radha Khan Work Phone: [facility] Work Phone: 07-16-2021 16:25-0400 Body temperature 98.7 [degF] Dr. Radha Khan Work Phone: [facility] Work Phone: 07-16-2021 16:25-0400 Diastolic blood pressure 75 mm[Hg] Dr. Radha Khan Work Phone: [facility] Work Phone: 07-16-2021 16:25-0400 Heart rate 73 /min Dr. Radha Khan Work Phone: [facility] Work Phone: 07-16-2021 16:25-0400 Respiratory rate 18 /min Dr. Radha Khan Work Phone: [facility] Work Phone: 07-16-2021 16:25-0400 SaO2% (BldA) [Mass fraction] 99 % Dr. Radha Khan Work Phone: [facility] Work Phone: 07-16-2021 16:25-0400 Systolic blood pressure 155 mm[Hg] Dr. Radha Khan Work Phone: [facility] Work Phone: 07-16-2021 14:17-0400 Body height 175.[address] Radha Khan Work Phone: [facility] Work Phone: 07-16-2021 14:17-0400 Body mass index (BMI) [Ratio] 44.9 kg/m2 Dr. Radha Khan Work Phone: [facility] Work Phone: 07-16-2021 14:17-0400 Body weight [address] Radha Khan Work Phone: [facility] Work Phone: 07-13-2021 10:31-0400 Body mass index (BMI) [Ratio] 44.4 kg/m2 Dr. Radha Khan Work Phone: [facility] Work Phone: 07-13-2021 10:31-0400 Body temperature 98.2 [degF] Dr. Radha Khan Work Phone: [facility] Work Phone: 07-13-2021 10:31-0400 Body weight 136.[address] Radha Khan Work Phone: [facility] Work Phone: 07-13-2021 10:31-0400 Diastolic blood pressure 72 mm[Hg] Dr. Radha Khan Work Phone: [facility] Work Phone: 07-13-2021 10:31-0400 Heart rate 73 /min Dr. Radha Khan Work Phone: [facility] Work Phone: 07-13-2021 10:31-0400 Respiratory rate 17 /min Dr. Radha Khan Work Phone: [facility] Work Phone: 07-13-2021 10:31-0400 SaO2% (BldA) [Mass fraction] 99 % Dr. Radha Khan Work Phone: [facility] Work Phone: 07-13-2021 10:31-0400 Systolic blood pressure 115 mm[Hg] Dr. Radha Khan Work Phone: [facility] Work Phone: 07-13-2021 10:31-0400 Body mass index (BMI) [Ratio] 44.4 kg/m2 Dr. Radha Khan Work Phone: [facility] Work Phone: 07-13-2021 10:31-0400 Body temperature 98.2 [degF] Dr. Radha Khan Work Phone: [facility] Work Phone: 07-13-2021 10:31-0400 Body weight 136.[address] Radha Khan Work Phone: [facility] Work Phone: 07-13-2021 10:31-0400 Diastolic blood pressure 72 mm[Hg] Dr. Radha Khan Work Phone: [facility] Work Phone: 07-13-2021 10:31-0400 Heart rate 73 /min Dr. Radha Khan Work Phone: [facility] Work Phone: 07-13-2021 10:31-0400 Respiratory rate 17 /min Dr. Radha Khan Work Phone: [facility] Work Phone: 07-13-2021 10:31-0400 SaO2% (BldA) [Mass fraction] 99 % Dr. Radha Khan Work Phone: [facility] Work Phone: 07-13-2021 10:31-0400 Systolic blood pressure 115 mm[Hg] Dr. Radha Khan Work Phone: [facility] Work Phone: 07-12-2021 12:50-0400 Body weight 136.[address] Radha Khan Work Phone: [facility] Work Phone: 07-12-2021 12:50-0400 Diastolic blood pressure 83 mm[Hg] Dr. Radha Khan Work Phone: [facility] Work Phone: 07-12-2021 12:50-0400 Heart rate 72 /min Dr. Radha Khan Work Phone: [facility] Work Phone: 07-12-2021 12:50-0400 Respiratory rate 18 /min Dr. Radha Khan Work Phone: [facility] Work Phone: 07-12-2021 12:50-0400 SaO2% (BldA) [Mass fraction] 100 % Dr. Radha hKan Work Phone: [facility] Work Phone: 07-12-2021 12:50-0400 Systolic blood pressure 148 mm[Hg] Dr. Radha Khan Work Phone: [facility] Work Phone: 07-12-2021 12:50-0400 Body weight 136.[address] Radha Khan Work Phone: [facility] Work Phone: 07-12-2021 12:50-0400 Diastolic blood pressure 83 mm[Hg] Dr. Radha Khan Work Phone: [facility] Work Phone: 07-12-2021 12:50-0400 Heart rate 72 /min Dr. Radha Khan Work Phone: [facility] Work Phone: 07-12-2021 12:50-0400 Respiratory rate 18 /min Dr. Radha Khan Work Phone: [facility] Work Phone: 07-12-2021 12:50-0400 SaO2% (BldA) [Mass fraction] 100 % Dr. Radha Khan Work Phone: [facility] Work Phone: 07-12-2021 12:50-0400 Systolic blood pressure 148 mm[Hg] Dr. Radha Khan Work Phone: [facility] Work Phone: 06-29-2021 13:09-0400 Body mass index (BMI) [Ratio] 43.6 kg/m2 Dr. Radha Khan Work Phone: [facility] Work Phone: 06-29-2021 13:09-0400 Body temperature 96.9 [degF] Dr. Radha Khan Work Phone: [facility] Work Phone: 06-29-2021 13:09-0400 Body weight 133.[address] Radha Khan Work Phone: [facility] Work Phone: 06-29-2021 13:09-0400 Diastolic blood pressure 76 mm[Hg] Dr. Radha Khan Work Phone: [facility] Work Phone: 06-29-2021 13:09-0400 Heart rate 98 /min Dr. Radha Khan Work Phone: [facility] Work Phone: 06-29-2021 13:09-0400 Respiratory rate 18 /min Dr. Radha Khan Work Phone: [facility] Work Phone: 06-29-2021 13:09-0400 SaO2% (BldA) [Mass fraction] 98 % Dr. Radha Khan Work Phone: [facility] Work Phone: 06-29-2021 13:09-0400 Systolic blood pressure 110 mm[Hg] Dr. Radha Khan Work Phone: [facility] Work Phone: 06-29-2021 13:09-0400 Body mass index (BMI) [Ratio] 43.6 kg/m2 Dr. Radah Khan Work Phone: [facility] Work Phone: 06-29-2021 13:09-0400 Body temperature 96.9 [degF] Dr. Radha Khan Work Phone: [facility] Work Phone: 06-29-2021 13:09-0400 Body weight 133.[address] Radha Khan Work Phone: [facility] Work Phone: 06-29-2021 13:09-0400 Diastolic blood pressure 76 mm[Hg] Dr. Radha Khan Work Phone: [facility] Work Phone: 06-29-2021 13:09-0400 Heart rate 98 /min Dr. Radha Khan Work Phone: [facility] Work Phone: 06-29-2021 13:09-0400 Respiratory rate 18 /min Dr. Radha Khan Work Phone: [facility] Work Phone: 06-29-2021 13:09-0400 SaO2% (BldA) [Mass fraction] 98 % Dr. Radha Khan Work Phone: [facility] Work Phone: 06-29-2021 13:09-0400 Systolic blood pressure 110 mm[Hg] Dr. Radha Khan Work Phone: [facility] Work Phone: 06-20-2021 12:08-0400 Heart rate 90 /min Dr. Radha Khan Work Phone: [facility] Work Phone: 06-20-2021 10:32-0400 SaO2% (BldA) [Mass fraction] 95 % Dr. Radha Khan Work Phone: [facility] Work Phone: 06-20-2021 09:00-0400 Body temperature 97.8 [degF] Dr. Radha Khan Work Phone: [facility] Work Phone: 06-20-2021 09:00-0400 Diastolic blood pressure 82 mm[Hg] Dr. Radha Khan Work Phone: [facility] Work Phone: 06-20-2021 09:00-0400 Respiratory rate 18 /min Dr. Radah Khan Work Phone: [facility] Work Phone: 06-20-2021 09:00-0400 Systolic blood pressure 154 mm[Hg] Dr. Radha Khan Work Phone: [facility] Work Phone: 06-20-2021 06:00-0400 Body weight [address] Radha Khan Work Phone: [facility] Work Phone: 06-19-2021 10:46-0400 Body mass index (BMI) [Ratio] 44.3 kg/m2 Dr. Radha Khan Work Phone: [facility] Work Phone: 06-15-2021 14:08-0400 Body weight 139.[address] Radha Khan Work Phone: [facility] Work Phone: 06-15-2021 14:08-0400 Heart rate 84 /min Dr. Radha Khan Work Phone: [facility] Work Phone: 06-15-2021 14:08-0400 SaO2% (BldA) [Mass fraction] 97 % Dr. Radha Khan Work Phone: [facility] Work Phone: 06-01-2021 13:31-0500 Body mass index (BMI) [Ratio] 43.9 kg/m2 Dr. Radha Khan Work Phone: [facility] Work Phone: 06-01-2021 13:31-0500 Body temperature 96.9 [degF] Dr. Radha Khan Work Phone: [facility] Work Phone: 06-01-2021 13:31-0500 Body weight 134.[address] Radha Khan Work Phone: [facility] Work Phone: 06-01-2021 13:31-0500 Diastolic blood pressure 70 mm[Hg] Dr. Radha Khan Work Phone: [facility] Work Phone: 06-01-2021 13:31-0500 Heart rate 78 /min Dr. Radha Khan Work Phone: [facility] Work Phone: 06-01-2021 13:31-0500 Respiratory rate 18 /min Dr. Radha Khan Work Phone: [facility] Work Phone: 06-01-2021 13:31-0500 SaO2% (BldA) [Mass fraction] 100 % Dr. Radha Khan Work Phone: [facility] Work Phone: 06-01-2021 13:31-0500 Systolic blood pressure 110 mm[Hg] Dr. Radha Khan Work Phone: [facility] Work Phone: 06-01-2021 12:31-0500 Body mass index (BMI) [Ratio] 43.9 kg/m2 Dr. Radha Khan Work Phone: [facility] Work Phone: 06-01-2021 12:31-0500 Body temperature 96.9 [degF] Dr. Radha Khan Work Phone: [facility] Work Phone: 06-01-2021 12:31-0500 Body weight 134.[address] Radha Khan Work Phone: [facility] Work Phone: 06-01-2021 12:31-0500 Diastolic blood pressure 70 mm[Hg] Dr. Radha Khan Work Phone: [facility] Work Phone: 06-01-2021 12:31-0500 Heart rate 78 /min Dr. Radha Khan Work Phone: [facility] Work Phone: 06-01-2021 12:31-0500 Respiratory rate 18 /min Dr. Radha Khan Work Phone: [facility] Work Phone: 06-01-2021 12:31-0500 SaO2% (BldA) [Mass fraction] 100 % Dr. Radha Khan Work Phone: [facility] Work Phone: 06-01-2021 12:31-0500 Systolic blood pressure 110 mm[Hg] Dr. Radha Khan Work Phone: [facility] Work Phone: 10-13-2020 15:48-0400 Body mass index (BMI) [Ratio] 45.2 kg/m2 Dr. Radha Khan Work Phone: [facility] Work Phone: 10-13-2020 15:48-0400 Body mass index (BMI) [Ratio] 45.2 kg/m2 Dr. Radha Khan Work Phone: [facility] Work Phone: Encounters Encounter Date Encounter Type Care Provider Facility Start: 09-26-2024 Evaluation and manag ement of inpatient Dr. Xiao Berrios MD -[facility] Work Phone: Start: 09-26-[address] Radha Khan MD Work Phone: [facility] Start: 09-24-2024 End: 09-24-2024 Subsequent hospital visit by physician [facility] [address] Comment on above: Arrived Start: 09-24-2024 End: [facility]: 09-24-[facility]24 End: 09-24-2024 Subsequent hospital visit by physician Dick Nguyen MD Work Phone: [facility] Comment on above: ILD (interstitial lavonne ng disease) (Multi) Start: 09-24-2024 End: 09-24-2024 ambulatory MNAretha [facility] Start: 09-16-2024 End: 09-16-2024 Patient encounter procedure Coreen SHELDON -[facility] Work Phone: Start: 09-16-2024 End: 09-16-[address] Radha Khan MD Work Phone: [facility] Work Phone: Start: 09-15-2024 End: 09-15-[address] Toni Vann MD -[facility] Work Phone: Start: 09-15-2024 End: 09-15-[address] Radha Khan MD Work Phone: [facility] Work Phone: Start: 08-28-2024 End: 08-28-2024 Office outpatient visit 40 minutes Rosalino Padron MD Work Phone: [facility] Comment on above: ILD (interstitial lavonne ng disease) (Multi) (Primary Dx); Chronic respiratory failure with hypoxia; KIANNA (obstructive sleep apnea); BMI 40.0-44.9, adult (Multi); Diastolic heart failure, unspecified HF chronicity Start: 08-28-2024 End: 08-28-2024 ambulatory [facility] Start: 08-18-2024 End: 08-18-2024 Subsequent hospital visit by physician Oni Rousseau Pft Rm 2 [facility] Comment on above: ILD (interstitial lavonne ng disease) (Multi) Start: 08-18-2024 End: 08-18-2024 ambulatory [facility] Start: 08-17-2024 End: 08-17-[address] Toni Vann MD -[facility] Work Phone: Start: 08-17-2024 End: 08-17-2024 Dr. Toni Vann MD -[facility] Work Phone: Start: 08-17-2024 End: 08-17-[address] Radha Khan MD Work Phone: [facility] Work Phone: Start: 08-12-2024 End: 08-12-2024 Patient encounter procedure Sumanth Hanna MD -[facility] Work Phone: Start: 08-12-2024 End: 08-12-2024 Sumanth Hanna MD -[facility] Work Phone: Start: 08-12-2024 End: 08-12-[address] Radha Khan MD Work Phone: [facility] Work Phone: Start: 08-12-2024 End: 08-12-2024 ambulatory [facility] Facility:[facility] Start: 08-07-2024 End: 08-07-2024 Office outpatient visit 40 minutes Rosalino Padron MD Work Phone: [facility] Comment on above: ILD (interstitial lavonne ng disease) (Multi) (Primary Dx); Chronic respiratory failure with hypoxia; KIANNA (obstructive sleep apnea); BMI 40.0-44.9, adult (Multi); Diastolic heart failure, unspecified HF chronicity Start: 08-07-2024 End: 08-07-2024 ambulatory ROSALINO PADRON [facility] Start: 08-06-2024 End: 08-06-[address] Toni Vann MD -[facility] Work Phone: Start: 08-06-2024 End: 08-06-2024 Dr. Toni Vann MD -[facility] Work Phone: Start: 08-06-2024 End: 08-06-2024 ambulatory Toni Sandersonmeek Facility:[facility] Start: 07-24-2024 End: 07-24-2024 Subsequent hospital visit by physician Clifford kamara Pft Room [facility] Comment on above: ILD (interstitial lavonne ng disease) (Multi) Start: 07-24-2024 End: 07-24-2024 ambulatory [facility] Start: 07-23-2024 End: 07-23-2024 Subsequent hospital visit by physician Michael Garcia [facility] Comment on above: Pulmonary hypertensi on (Multi) Start: 07-23-2024 End: 07-23-2024 ambulatory [facility] Start: 07-20-2024 End: 07-20-2024 Subsequent hospital visit by physician Lorenza C[address] [facility] Comment on above: ILD (interstitial lavonne ng disease) (Multi) Start: 07-20-2024 End: 07-20-2024 ambulatory [facility] Start: 07-06-2024 End: 07-06-[address] Toni Vann MD -[facility] Work Phone: Start: 07-06-2024 End: 07-06-2024 Dr. Toni Vann MD -[facility] Work Phone: Start: 07-06-2024 End: 07-06-2024 ambulatory Toni Vann Facility:[facility] Start: 06-26-2024 End: 06-26-2024 Office outpatient new 60 minutes Rosalino Padron MD Work Phone: [facility] Comment on above: ILD (interstitial lavonne ng disease) (Multi) (Primary Dx); Pulmonary hypertension (Multi); Chronic respiratory failure with hypoxia (Multi) Start: 06-26-2024 End: 06-26-2024 ambulatory [facility] Start: 06-10-2024 End: 06-10-2024 Patient encounter procedure SAV Rojas -[facility] Work Phone: Start: 06-10-2024 End: 06-10-2024 ENERGY ADVISOR Chen Rojas -[facility] Work Phone: Start: 06-10-2024 End: 06-10-2024 ambulatory Radha Khan [facility] Start: 06-04-2024 End: 06-04-[address] Toni Vann MD -[facility] Work Phone: Start: 06-04-2024 End: 06-04-2024 Dr. Toni Vann MD -[facility] Work Phone: Start: 06-04-2024 End: 06-04-2024 ambulatory Toni Vann [facility] Start: 06-02-2024 End: 06-02-2024 Patient encounter procedure ENERGY ADVISOR Chen Rojas -Sleep Lab Work Phone: Start: 06-02-2024 End: 06-02-2024 ENERGY ADVISOR Chen Rojas -Sleep Lab Work Phone: Start: 06-02-2024 End: 06-02-2024 ambulatory Chen Rojas Facility:[facility] Start: 05-28-2024 Non-patient / Non-visit Dr. Jemima MCRAE -[facility] Work Phone: Start: 05-28-2024 ambulatory Lydia GRIFFITHS [facility] Start: 05-28-2024 Registered Referred Lydia Segura PA -Cardiovascular Services Work Phone: Start: 05-28-2024 Dr. Sumanth Hanna MD -[facility] Work Phone: Start: 05-21-2024 End: 05-21-2024 Patient encounter procedure Lydia Segura PA -Laboratory Work Phone: Start: 05-21-2024 End: 05-21-2024 Lydia Segura PA -Laboratory Work Phone: Start: 05-21-2024 End: 05-21-2024 Patient encounter procedure Lydia GRIFFITHS -[facility] Work Phone: Start: 05-21-2024 End: 05-21-2024 Lydia GRIFFITHS -[facility] Work Phone: Start: 05-21-2024 End: 05-21-2024 ambulatory Radha S Jolliff Facility:[facility] Start: 05-21-2024 End: 05-21-2024 ambulatory Lydia GRIFFITHS Facility:[facility] Start: 05-08-2024 End: 05-08-2024 Telephone encounter Oziel Culp MD Work Phone: [facility] Start: 05-07-2024 End: 05-08-2024 Orders Only Mey Rodriguezdhiraj BACKREST ASSEMBLER - SLOT FLOORPERSON Work Phone: [facility] Comment on above: Bilateral carotid ar christine stenosis (Primary Dx) Start: 05-06-2024 End: 05-06-2024 Subsequent hospital visit by physician Ach Ecg [facility] Non-Invasive [facility] Comment on above: Arrived Ischemic cerebrovasc ular accident (CVA) (HCC); Bilateral carotid artery stenosis Start: 05-06-2024 End: 05-06-2024 ambulatory MEY LOYA [facility] Start: 05-05-2024 End: 05-05-2024 Dr. Rito Lundberg MD -[facility] Work Phone: Start: 05-05-2024 End: 05-05-2024 ambulatory Radha S Jolliff Facility:[facility] Start: 05-01-2024 End: 05-01-2024 ENERGY ADVISOR Chen Rojas -[facility] Work Phone: Start: 05-01-2024 End: 05-01-2024 ambulatory Radha S Jolliff Facility:[facility] Start: 04-30-2024 End: 04-30-2024 Dr. Ochoa Dobbs MD -[facility] Work Phone: Start: 04-30-2024 End: 04-30-2024 ambulatory Radha S Jolliff Facility:[facility] Start: 04-30-2024 End: 04-30-2024 Dr. Toni Vann MD -[facility] Work Phone: Start: 04-30-2024 End: 04-30-2024 ambulatory Toni Vann Facility:[facility] Start: 04-27-2024 End: 04-27-2024 Office outpatient visit 25 minutes Suzy Jauregui MD Work Phone: [facility] Comment on above: Cerebrovascular acci dent (CVA), unspecified mechanism (HCC) (Primary Dx); Bilateral carotid artery stenosis Start: 04-27-2024 End: 04-27-2024 ambulatory [facility] Start: 04-25-2024 Dr. Ochoa Johnson DO -[facility] Work Phone: Start: 04-24-2024 ambulatory Daniel Tarun Facility: [facility] Start: 04-24-2024 End: 04-25-2024 Evaluation and management of inpatient Ochoa Johnson Facility:[facility] Start: 04-24-2024 End: 04-25-2024 Dr. Ochoa Johnson DO -Pro[facility] Un it Work Phone: Start: 04-24-2024 End: 04-24-2024 Dr. Radha Khan MD -Laboratory [facility] Start: 04-24-2024 End: 04-24-2024 ambulatory Radha Khan Facility:[facility] Start: 04-23-2024 End: 04-23-2024 Telephone encounter Coreen Clifton RN [facility] Special Procedur es Start: 04-22-2024 End: 04-22-2024 SAV Rojas -[facility] Work Phone: Start: 04-22-2024 End: 04-22-2024 ambulatory Chen Rojas Facility:[facility] Start: 04-20-2024 ambulatory Ochoa Dobbs [facility] Start: 04-16-2024 End: 04-16-2024 Coreen Gerardo ENERGY ADVISOR-C -[facility] Work Phone: Start: 04-16-2024 End: 04-16-2024 ambulatory Radha S Jolliff Facility:[facility] Start: 04-15-2024 Dr. Cuco Soler MD -[facility] Work Phone: Start: 04-14-2024 ambulatory Radha S Jolliff Facility: [facility] Start: 04-13-2024 ambulatory Radha S Jolliff Facility: [facility] Start: 04-12-2024 ambulatory Radha S Jolliff Facility: [facility] Start: 04-12-2024 End: 04-15-2024 Evaluation and management of inpatient Radha S Jolliff Facility:[facility] Start: 04-12-2024 End: 04-15-2024 Dr. Cuco Soler MD -Progressive [facility] Work Phone: Start: 04-09-2024 End: 04-09-2024 ambulatory Radha S Jolliff Facility:[facility] Start: 04-06-2024 End: 04-06-2024 Subsequent hospital visit by physician Suzy Jauregui MD Work Phone: [facility] Comment on above: Bilateral carotid ar christine occlusion Start: 04-06-2024 End: 04-06-2024 ambulatory [facility] Start: 03-30-2024 End: 03-30-2024 ambulatory Radha S Jolliff Facility:[facility] Start: 03-30-2024 ambulatory Radha S Jolliff Facility: [facility] Start: 03-30-2024 End: 03-30-2024 ambulatory Radha S Jolliff Facility:[facility] Start: 03-27-2024 ambulatory Radha S Jolliff Facility: [facility] Start: 03-27-2024 End: 03-27-2024 ambulatory Radha S Jolliff Facility:[facility] Start: 03-23-2024 End: 03-23-2024 ambulatory Radha S Jolliff Facility:[facility] Start: 03-13-2024 End: 03-13-2024 ambulatory Radha S Jolliff Facility:[facility] Start: 03-03-2024 ambulatory Nagrulaadee Deb Fa cility:[facility] Start: 03-02-2024 ambulatory Xiao Berrios [facility] Start: 03-02-2024 End: 03-04-2024 Evaluation and management of inpatient Xiao Berrios Facility:[facility] Start: 02-26-2024 End: 02-26-2024 Emergency department patient visit Radha Khan Facility:[facility] Start: 02-21-2024 ambulatory Mireya Garcia Fayi ty:[facility] Start: 02-20-2024 End: 02-20-2024 ambulatory Toni Reneemeek Facility:[facility] Start: 02-18-2024 End: 02-18-2024 ambulatory Radha S Samanthalliff Facility:[facility] Start: 02-13-2024 End: 02-13-2024 Orders Only Mey Loya BACKREST ASSEMBLER - SLOT FLOORPERSON Work Phone: [facility] Comment on above: Ischemic cerebrovasc ular accident (CVA) (HCC) (Primary Dx); Bilateral carotid artery stenosis Start: 02-07-2024 End: 02-07-2024 ambulatory Radha S Samanthalliff Facility:[facility] Start: 02-06-2024 End: 03-04-2024 Telephone encounter Oziel Culp MD Work Phone: [facility] Clinical Communication Start: 02-06-2024 End: 02-06-2024 Subsequent hospital visit by physician Oziel Culp MD Work Phone: [facility] [address] Comment on above: Arrived Start: 02-06-2024 End: 02-06-[address] [facility] Start: 02-06-2024 End: 02-06-2024 ambulatory Radha S Jolliff Facility:[facility] Start: 02-05-2024 End: 02-05-[address] [facility] Start: 02-03-2024 End: 02-03-2024 ambulatory Radha S Jolliff Facility[facility] Start: 01-21-2024 End: 01-22-[address] [facility] Start: 01-21-2024 End: 01-22-2024 Evaluation and management of inpatient Eduin Umaña Facility:[facility] Start: 01-20-2024 End: 01-20-2024 ambulatory Toni Reneemeek Facility[facility] Start: 01-16-2024 End: 01-16-2024 Orders Only Mey Loya BACKREST ASSEMBLER - SLOT FLOORPERSON Work Phone: [facility] Comment on above: Chronic kidney disea se, unspecified CKD stage (Primary Dx) Start: 01-10-2024 End: 01-10-2024 ambulatory Radha S Jolliff Facility:[facility] Start: 01-06-2024 End: 01-06-2024 Office outpatient visit 25 minutes Oziel Culp MD Work Phone: [facility] Comment on above: Bilateral carotid ar christine stenosis (Primary Dx); Ischemic cerebrovascular accident (CVA) (HCC) Start: 01-06-2024 End: 01-06-2024 ambulatory OZIEL CULP [facility] Start: 01-01-2024 ambulatory Oren Sky ENERGY ADVISOR Facility :[facility] Start: 01-01-2024 End: 01-01-2024 ambulatory Oren Sky ENERGY ADVISOR Facility:[facility] Start: 12-26-2023 End: 12-26-2023 ambulatory Radha S Jolliff Facility[facility] Start: 12-19-2023 End: 12-19-2023 ambulatory Toni Badnelson Facility:[facility] Start: 12-12-2023 End: 12-12-2023 ambulatory Radha S Jolliff Facility:[facility] Start: 12-12-2023 End: 12-12-2023 ambulatory Oren Sky ENERGY ADVISOR Facility:[facility] Start: 12-06-2023 End: 12-06-2023 ambulatory Radha S Jolliff Facility:[facility] Start: 11-27-2023 End: 11-27-2023 ambulatory Radha S Jolliff Facility[facility] Start: 11-18-2023 End: 11-18-2023 ambulatory Toni Baddomeek Facility:[facility] Start: 11-16-2023 End: 11-16-2023 Emergency department patient visit Armin Fermin Facility:[facility] Start: 11-14-2023 End: 11-14-2023 ambulatory Bethany Shelley Facility:[facility] Start: 11-14-2023 End: 11-14-2023 Evaluation and management of inpatient Edmund Dey Facility:[facility] Start: 11-14-2023 ambulatory Eduin Latif ty:[facility] Start: 11-14-2023 ambulatory Edmund Dey [facility] Start: 11-04-2023 End: 11-04-2023 ambulatory Radha S Jolliff Facility:[facility] Start: 10-30-2023 End: 10-31-2023 ambulatory Radha S Jolliff Facility:[facility] Start: 10-29-2023 End: 10-29-2023 ambulatory Radha S Jolliff Facility:[facility] Start: 10-17-2023 End: 10-17-2023 ambulatory Radha S Jolliff Facility[facility] Start: 10-14-2023 End: 10-14-2023 ambulatory Radha S Jolliff Facility:[facility] Start: 10-14-2023 End: 10-14-2023 ambulatory Radha S Jolliff Facility:[facility] Start: 10-08-2023 End: 10-08-2023 ambulatory Bethanyflorentino Shelley Facility:[facility] Start: 10-08-2023 ambulatory Radha S Jolliff [facility]: [facility] Start: 10-03-2023 End: 10-05-2023 Evaluation and management of inpatient Joe Rocha MD Work Phone: [facility] Cardiac Post Intervention Progressive Care Unit [facility] PCU 4W Comment on above: Cerebrovascular acci dent (CVA), unspecified mechanism (HCC) (Primary Dx) Start: 10-01-2023 End: 10-03-2023 Evaluation and management of inpatient CHITO BUENROSTRO BACKREST ASSEMBLER-SLOT FLOORPERSON [facility] Start: 10-01-2023 ambulatory Radha S Jolliff Facility: [facility] Start: 10-01-2023 End: 10-01-2023 ambulatory Radha S Jolliff Facility:[facility] Start: 09-26-2023 End: 09-26-2023 ambulatory Radha S Jolliff Facility:[facility] Start: 09-24-2023 End: 09-24-2023 ambulatory Radha S Jolliff Facility:[facility] Start: 09-19-2023 End: 09-19-2023 ambulatory Radha S Jolliff Facility:[facility] Start: 08-05-2023 End: 08-05-[address] Radha Khan Work Phone: [facility] Work Phone: Start: 08-05-2023 End: 08-05-[address] Radha Khan Work Phone: [facility]-Laboratory Work Phone: Start: 07-17-2023 End: 07-17-[address] Radha Khan Work Phone: [facility] Vascular Surgery Work Phone: Start: 07-03-2023 End: 07-03-[address] Radha Khan Work Phone: [facility] Work Phone: Start: 06-06-2023 End: 06-06-[address] Radha Khan Work Phone: [facility] Work Phone: Start: 06-06-2023 End: 06-06-[address] Radha Khan Work Phone: [facility] Work Phone: Start: 05-21-2023 End: 05-21-[address] Radha Khan Work Phone: [facility] Work Phone: Start: 05-20-2023 End: 05-20-[address] Radha Khan Work Phone: [facility] Endocrinology Work Phone: Start: 05-01-2023 Non-patient / Non-visit Dr. Armen Khan Work Phone: [facility] Start: 05-01-2023 End: 05-01-[address] Radha Khan Work Phone: [facility] Work Phone: Start: 05-01-2023 End: 05-01-[address] Radha Khan Work Phone: [facility]-Cardiovascula r Services Work Phone: Start: 04-25-2023 End: 04-25-[address] Radha Khan Work Phone: [facility] Work Phone: Start: 04-25-2023 End: 04-25-[address] Radha Khan Work Phone: [facility]-Laboratory Work Phone: Start: 04-25-2023 End: 04-25-[address] Radha Khan Work Phone: [facility] Work Phone: Start: 03-15-2023 Non-patient / Non-visit Dr. Armen Khan Work Phone: [facility] Start: 03-15-2023 End: 03-15-[address] Radha Khan Work Phone: [facility] Work Phone: Start: 03-15-2023 End: 03-15-[address] Radha Khan Work Phone: [facility] Work Phone: Start: 03-12-2023 End: 03-12-[address] Radha Khan Work Phone: [facility] Neurology Work Phone: Start: 02-28-2023 End: 02-28-[address] Radha Khan Work Phone: [facility] Work Phone: Start: 02-28-2023 End: 02-28-[address] [facility] Work [facility]: Start: 02-28-2023 End: 02-28-[address] Radha Khan Work Phone: [facility] Work Phone: Start: 02-27-2023 End: 02-27-[address] Radha Khan Work Phone: [facility] Work Phone: Start: 02-26-2023 End: 02-26-[address] Radha Khan Work Phone: [facility] Work Phone: Start: 02-26-2023 End: 02-26-[address] Radha Khan Work Phone: [facility] [place] Work Phone: Start: 02-18-2023 End: 02-18-2023 Admission to same day surgery center Dr. Radha Khan Work Phone: [facility]-Surgical Day Care Start: 02-18-2023 End: 02-18-[address] Radha Khan Work Phone: [facility] Work Phone: Start: 02-04-2023 End: 02-04-[address] Radha Khan Work Phone: [facility] Endocrinology Work Phone: Start: 01-15-2023 End: 01-15-[address] Radha Khan Work Phone: [facility] Work Phone: Start: 01-15-2023 End: 01-15-[address] Radha Khan Work Phone: [facility] [place] Work Phone: Start: 01-07-2023 End: 01-07-[address] Radha Khan Work Phone: [facility] Work Phone: Start: 01-07-2023 End: 01-07-[address] Radha Khan Work Phone: [facility] Work Phone: Start: 01-01-2023 End: 01-01-[address] Radha Khan Work Phone: [facility] Work Phone: Start: 01-01-2023 End: 01-01-[address] Radha Khan Work Phone: [facility]-Laboratory, Specimen Work Phone: Start: 12-31-2022 End: 12-31-[address] Radha Khan Work Phone: [facility] [place] Work Phone: Start: 12-10-2022 End: 12-10-[address] Radha Khan Work Phone: [facility] Endocrinology Work Phone: Start: 11-09-2022 End: 11-09-[address] Radha Khan Work Phone: [facility] Work Phone: Start: 11-09-2022 End: 11-09-[address] Radha Khan Work Phone: [facility] Work Phone: Start: 11-07-2022 End: 11-07-[address] Radha Khan Work Phone: [facility] Work Phone: Start: 11-07-2022 End: 11-07-[address] Radha Khan Work Phone: [facility] Work Phone: Start: 10-31-2022 End: 10-31-[address] Radha Khan Work Phone: [facility] Work Phone: Start: 10-31-2022 End: 10-31-[address] Radha Khan Work Phone: [facility] Start: 10-12-2022 End: 10-12-[address] Radha Khna Work Phone: [facility] Work Phone: Start: 10-12-2022 End: 10-12-[address] Radha Khan Work Phone: [facility] Work Phone: Start: 10-08-2022 End: 10-08-[address] Radha Khan Work Phone: [facility] Work Phone: Start: 10-01-2022 Non-patient / Non-visit Dr. Armen Khan Work Phone: [facility] Start: 10-01-2022 End: 10-01-[address] Radha Khan Work Phone: [facility] Work Phone: Start: 10-01-2022 End: 10-01-[address] Radha Khan Work Phone: [facility]-Cardiovascula r Services Work Phone: Start: 09-03-2022 End: 09-03-[address] Radha Khan Work Phone: [facility] Endocrinology Work Phone: Start: 08-03-2022 Non-patient / Non-visit Dr. Armen Khan Work Phone: [facility] Inpatient Physicians Start: 08-02-2022 Non-patient / Non-visit Dr. Armen Khan Work Phone: [facility] Start: 08-01-2022 End: 08-03-2022 Evaluation and management of inpatient Dr. Radha Khan Work Phone: [facility]-Progressive Care Unit Start: 08-01-2022 End: 08-03-[address] Radha Khan Work Phone: [facility] Work Phone: Start: 07-27-2022 End: 07-27-[address] Radha Khan Work Phone: [facility] Work Phone: Start: 07-27-2022 End: 07-27-[address] Radha Khan Work Phone: [facility] Start: 06-26-2022 End: 06-26-[address] Radha Khan Work Phone: [facility] Work Phone: Start: 06-26-2022 End: 06-26-[address] Radha Khan Work Phone: [facility] Start: 06-18-2022 End: 06-18-[address] Radha Khan Work Phone: [facility] Endocrinology Start: 06-12-2022 End: 06-12-[address] Radha Khan Work Phone: [facility]-Pulmonary Medicine [facility] Start: 05-21-2022 End: 05-21-[address] Radha Khan Work Phone: [facility] Start: 05-18-2022 End: 05-18-[address] Radha Khan Work Phone: [facility] Start: 05-09-2022 End: 05-09-2022 Admission to same day surgery center Dr. Radha Khan Work Phone: [facility]-Reimbursement Representative/Special Procedures Start: 05-09-2022 End: 05-09-[address] Radha Khan Work Phone: [facility] Work Phone: Start: 05-03-[address] Barney Khan Work Phone: [facility] Start: 05-03-2022 End: 05-03-[address] Radha Khan Work Phone: [facility] Start: 04-27-2022 End: 04-27-[address] Radha Khan Work Phone: [facility] Work Phone: Start: 04-27-2022 End: 04-27-[address] Radha Khan Work Phone: [facility] Start: 04-17-2022 End: 04-17-[address] Radha Khan Work Phone: [facility] Work Phone: Start: 04-17-2022 End: 04-17-[address] Radha Khan Work Phone: [facility] Start: 03-12-2022 End: 03-12-[address] Radha Khan Work Phone: [facility] Start: 02-19-2022 End: 02-19-[address] Radha Khan Work Phone: [facility] Heart [facility] Start: 02-17-2022 Non-patient / Non-visit Dr. Armen Khan Work Phone: [facility] Start: 02-16-2022 End: 02-16-[address] Radha Khan Work Phone: [facility] Work Phone: Start: 02-16-2022 End: 02-16-[address] Radha Khan Work Phone: [facility]-Pulmonary Services/Neurology Start: 02-12-2022 End: 02-12-[address] Rad[facility] Start: 01-15-2022 End: 01-15-[address] Radha Khan Work Phone: [facility] Start: 11-13-2021 End: 11-13-[address] Radha Khan Work Phone: [facility] Start: 09-19-2021 End: 09-19-[address] Radha Khan Work Phone: [facility]-Pulmonary Services/Neurology Start: 09-07-2021 End: 09-07-[address] Radha Khan Work Phone: [facility] Heart [facility] Start: 09-04-2021 End: 09-04-2021 Emergency department patient visit Dr. Radha Khan Work Phone: [facility]-Emergency Department Start: 08-14-2021 Non-patient / Non-visit Dr. Armen Khan Work Phone: [facility] Start: 08-14-2021 End: 08-14-[address] Radha Khan Work Phone: [facility]-Cardiovascula r Services Start: 08-10-2021 End: 08-10-[address] Radha Khan Work Phone: [facility] Endocrinology Start: 08-09-2021 End: 08-09-[address] Radha Khan Work Phone: [facility]-Sleep Lab Start: 07-16-2021 End: 07-16-2021 Emergency department patient visit Dr. Radha Khan Work Phone: [facility]-Emergency Department Start: 07-13-2021 End: 07-13-[address] Radha Khan Work Phone: [facility]-Pulmonary Medicine [facility] Start: 07-12-2021 End: 07-12-[address] Radha Khan Work Phone: [facility]-Laboratory Start: 07-12-2021 End: 07-12-[address] Radha Khan Work Phone: [facility] Heart Group Start: 06-29-2021 End: 06-29-[address] Radha Khan Work Phone: [facility] Endocrinology Start: 06-20-2021 Non-patient / Non-visit Dr. Armen Khan Work Phone: [facility] Inpatient Physicians Start: 06-19-2021 Non-patient / Non-visit Dr. Armen Khan Work Phone: [facility] Start: 06-19-2021 Non-patient / Non-visit Dr. Armen Khan Work Phone: [facility] Inpatient Physicians Start: 06-19-2021 End: 06-20-2021 Evaluation and management of inpatient Dr. Radha Khan Work Phone: [facility] Care Unit Start: 06-15-2021 Non-patient / Non-visit Dr. Armen Khan Work Phone: [facility] Start: 06-15-2021 End: 06-15-[address] Radha [facility] Start: 06-02-2021 End: 06-02-[address] Radha Khan [facility] Start: 06-02-2021 Non-patient / Non-visit Dr. Armen Khan Work Phone: [facility] Start: 06-01-2021 End: 06-01-[address] Radha Khan Work Phone: [facility] [place] Start: 06-01-2021 End: 06-01-[address] Radha Khan Work Phone: [facility] Endocrinology Start: 05-30-2021 End: 05-30-[address] Radha Khan Work Phone: [facility] Start: 12-27-2010 End: 12-27-2010 Patient encounter procedure Karlos Aquino Work Phone: [facility] Start: 12-27-2010 Results Only Karlos lehman Work Phone: [facility]. [facility] Procedures Date Procedure Procedure Detail Performing Clinician Start: 09-26-2024 CT of head without contrast Dr. Radha Khan MD Work Phone: Start: 09-24-2024 Radiologic exam ches t single view Maeve Pringle MD Work Phone: Start: 09-24-2024 [facility] [place] [place] [facility]ar lavage Dick Nguyen MD [...] Bilateral Views W contrast IA Mey Loya [facility] Work Phone: Start: 05-06-2024 Ecg routine ecg w/le ast 12 lds trcg only w/o i&r Mey Loya [facility] Work Phone: Start: 05-06-2024 Basic metabolic pane l calcium total Mye Loya [facility] Work Phone: Start: 05-05-2024 Blood count smear [...] Phone: Start: 04-27-2024 Follow-up visit Follow-up SHIRLEY JAUREGUI Start: 04-25-2024 MRI of brain without contrast [...] Start: 02-06-2024 Ct angiography head w/contrast/noncontrast Oziel uClp MD Work Phone: Start: 10-05-2023 Glucose quantitative [...] Author Start: 10-03-2028 Lipid panel Lipid Panel [facility] Start: 09-23-2025 Creatinine measurement Creatinine Level [facility] Start: 09-23-2025 Potassium measurement Potassium Level [facility] Start: 07-23-2025 Echocardiography Echocardiogram [facility] Start: 05-06-2025 Creatinine measurement Creatinine Level [facility] Start: 05-06-2025 Diabetes: Estimated Glomerular Filtration Rate for [facility] Diabetes: Estimated Glomerular Filtration Rate for Kid[facility] Start: 05-06-2025 Potassium measurement Potassium Level [facility] Start: 12-04-2024 End: 12-04-2024 Patient encounter procedure 12/04/2024 1:00 PM EDT Office Visit [facility] [id number] [facility] [address] [place] [address] [place] [address] [place] [address] [facility] Start: 10-04-2024 Creatinine measurement Creatinine Level [facility] Start: 10-04-2024 Diabetes: Estimated Glomerular Filtration Rate for [facility] Diabetes: Estimated Glomerular Filtration Rate for Kid[facility] Health [facility] Start: 10-04-2024 Potassium measurement Potassium Level [facility] Start: 10-03-2024 Diabetes mellitus screening Diabetes Screening [facility] Start: 10-03-2024 Hemoglobin A1c measurement Diabetes: Hemoglobin A1C [facility] Start: 10-03-2024 Lipid panel Lipid Panel [facility] Start: 09-26-2024 Admission procedure [facility] Start: 09-26-2024 [facility] Start: 09-26-2024 CT angiography of head and neck STROKE CTA Head AND Neck W/Con [facility] Start: 09-26-2024 CTA Head vessels and Neck vessels W contrast IV [facility] Start: 09-26-2024 Hospital admission, emergency, from emergency room, medical nature [facility] Start: 09-26-2024 Oxygen therapy [facility] Start: 09-26-2024 End: 09-26-2024 [facility] Start: 08-28-2024 End: 08-28-2025 DLCO / Diffusion Capacity DLCO / Diffusion Capacity PFT Routine ILD (interstitial lung disease) (Multi) Chronic respiratory failure with hypoxia Expected: 08/28/2024 (Approximate), Expires: 08/28/2025 [facility] Work Phone: Comment on above: Expected: 08/28/2024 (Approximate), Expi res: 08/28/2025 Start: 08-28-2024 End: 08-28-2025 Pulmonary Stress Test (6 Min. Walk) Pulmonary Stress Test (6 Min. Walk) PFT Routine ILD (interstitial lung disease) (Multi) Chronic respiratory failure with hypoxia Expected: 08/28/2024 (Approximate), Expires: 08/28/2025 [facility] Work Phone: Comment on above: Expected: 08/28/2024 (Approximate), Expi res: 08/28/2025 Start: 08-28-2024 End: 08-28-2025 Spirometry Pre/Post Bronchodilator Spirometry Pre/Post Bronchodilator PFT Routine ILD (interstitial lung disease) (Multi) Chronic respiratory failure with hypoxia Expected: 08/28/2024 (Approximate), Expires: 08/28/2025 [facility] Service Area Work Phone: Comment on above: Expected: 08/28/2024 (Approximate), Expi res: 08/28/2025 Start: 08-28-2024 End: 08-28-2024 Patient encounter procedure [facility] Start: 08-12-2024 X-ray of chest, PA and lateral views [facility] Start: 08-07-2024 End: 08-07-2025 DLCO / Diffusion Capacity DLCO / Diffusion Capacity PFT Routine ILD (interstitial lung disease) (Multi) Expected: 08/07/2024 (Approximate), Expires: 08/07/2025 [facility] Work Phone: Comment on above: Expected: 08/07/2024 (Approximate), Expi res: 08/07/2025 Start: 08-07-2024 End: 08-07-2025 Pulmonary Stress Test (6 Min. Walk) Pulmonary Stress Test (6 Min. Walk) PFT Routine ILD (interstitial lung disease) (Multi) Expected: 08/07/2024 (Approximate), Expires: 08/07/2025 [facility] Work Phone: Comment on above: Expected: 08/07/2024 (Approximate), Expi res: 08/07/2025 Start: 08-07-2024 End: 08-07-2025 Spirometry Pre/Post Bronchodilator Spirometry Pre/Post Bronchodilator PFT Routine ILD (interstitial lung disease) (Multi) Expected: 08/07/2024 (Approximate), Expires: 08/07/2025 [facility] Service Area Work Phone: Comment on above: Expected: 08/07/2024 (Approximate), Expi res: 08/07/2025 Start: 07-24-2024 End: 07-24-2024 Patient encounter procedure [facility] Start: 07-23-2024 End: 07-23-2024 Patient encounter procedure 07/23/2024 2:[address] [facility] [address] [facility] [address] [place] [address] [facility] Start: 07-19-2024 DTaP/Tdap/Td Vaccines (2 - Td or Tdap) DTaP/Tdap/Td Vaccines (2 - Td or Tdap) [facility] Start: 07-13-2024 End: 07-13-2024 Patient encounter procedure 07/13/2024 2:00 PM EDT Appointment [facility] [address] [facility] [address] [place] [id number] [facility] Start: 06-26-2024 End: 06-26-2025 Aldolase [Enzymatic activity/volume] in Serum or Plasma Aldolase Lab Routine ILD (interstitial lung disease) (Multi) Expected: 06/26/2024 (Approximate), Expires: 06/26/2025 [facility] Work Phone: Comment on above: Expected: 06/26/2024 (Approximate), Expi res: 06/26/2025 Start: 06-26-2024 End: 06-26-2025 C reactive protein [Mass/volume] in Serum or Plasma C-Reactive Protein Lab Routine ILD (interstitial lung disease) (Multi) Expected: 06/26/2024 (Approximate), Expires: 06/26/2025 [facility] Work Phone: Comment on above: Expected: 06/26/2024 (Approximate), Expi res: 06/26/2025 Start: 06-26-2024 End: 06-26-2025 Complete Pulmonary Function Test (Spirometry/DLCO/Lung Volumes) Complete Pulmonary Function Test (Spirometry/DLCO/Lung Volumes) PFT Routine ILD (interstitial lung disease) (Multi) Expected: 06/26/2024 (Approximate), Expires: 06/26/2025 [facility] Work Phone: Comment on above: Expected: 06/26/2024 (Approximate), Expi res: 06/26/2025 Start: 06-26-2024 End: 06-26-2025 Creatine kinase [Enzymatic activity/volume] in Serum or Plasma Creatine Kinase Lab Routine ILD (interstitial lung disease) (Multi) Expected: 06/26/2024 (Approximate), Expires: 06/26/2025 [facility] Work Phone: Comment on above: Expected: 06/26/2024 (Approximate), Expi res: 06/26/2025 Start: 06-26-2024 End: 06-26-[address] chest high resolution Imaging Routine ILD (interstitial lung disease) (Multi) Expected: 06/26/2024 (Approximate), Expires: 06/26/2025 [facility] Service Area Work Phone: Comment on above: Expected: 06/26/2024 (Approximate), Expi res: 06/26/2025 Start: 06-26-2024 End: 06-26-2025 Cyclic citrullinated peptide IgG Ab [Units/volume] in Serum or Plasma Citrulline Antibody, IgG Lab Routine ILD (interstitial lung disease) (Multi) Expected: 06/26/2024 (Approximate), Expires: 06/26/2025 [facility] Work Phone: Comment on above: Expected: 06/26/2024 (Approximate), Expi res: 06/26/2025 Start: 06-26-2024 End: 06-26-2025 Erythrocyte sedimentation rate Sedimentation Rate Lab Routine ILD (interstitial lung disease) (Multi) Expected: 06/26/2024 (Approximate), Expires: 06/26/2025 [facility] Work Phone: Comment on above: Expected: 06/26/2024 (Approximate), Expi res: 06/26/2025 Start: 06-26-2024 End: 06-26-2025 Extended Myositis Panel Extended Myositis Panel Lab Routine ILD (interstitial lung disease) (Multi) Expected: 06/26/2024 (Approximate), Expires: 06/26/2025 [facility] Work Phone: Comment on above: Expected: 06/26/2024 (Approximate), Expi res: 06/26/2025 Start: 06-26-2024 End: 06-26-2025 Hypersensitivity Pneumonitis Panel Hypersensitivity Pneumonitis Panel Lab Routine ILD (interstitial lung disease) (Multi) Expected: 06/26/2024 (Approximate), Expires: 06/26/2025 [facility] Work Phone: Comment on above: Expected: 06/26/2024 (Approximate), Expi res: 06/26/2025 Start: 06-26-2024 End: 06-26-2025 MPO, PR3 with Reflex to ANCA MPO, PR3 with Reflex to ANCA Lab Routine ILD (interstitial lung disease) (Multi) Expected: 06/26/2024 (Approximate), Expires: 06/26/2025 [facility] Work Phone: Comment on above: Expected: 06/26/2024 (Approximate), Expi res: 06/26/2025 Start: 06-26-2024 End: 06-26-2025 Nuclear Ab [Presence] in Serum by Hep2 substrate RICARDO with Reflex to NEELA Lab Routine ILD (interstitial lung disease) (Multi) Expected: 06/26/2024 (Approximate), Expires: 06/26/2025 [facility] Work Phone: Comment on above: Expected: 06/26/2024 (Approximate), Expi res: 06/26/2025 Start: 06-26-2024 End: 06-26-2025 Pulmonary Stress Test (6 Min. Walk) Pulmonary Stress Test (6 Min. Walk) PFT Routine ILD (interstitial lung disease) (Multi) Expected: 06/26/2024 (Approximate), Expires: 06/26/2025 [facility] Work Phone: Comment on above: Expected: 06/26/2024 (Approximate), Expi res: 06/26/2025 Start: 06-26-2024 End: 06-26-2025 Rheumatoid factor [Units/volume] in Serum by Nephelometry Rheumatoid Factor Lab Routine ILD (interstitial lung disease) (Multi) Expected: 06/26/2024 (Approximate), Expires: 06/26/2025 [facility] Work Phone: Comment on above: Expected: 06/26/2024 (Approximate), Expi res: 06/26/2025 Start: 06-26-2024 End: 06-26-2026 US Heart Transthoracic Transthoracic Echo (TTE) Complete Echocardiography Routine Pulmonary hypertension (Multi) Expected: 06/26/2024 (Approximate), Expires: 06/26/2026 [facility] Work Phone: Comment on above: Expected: 06/26/2024 (Approximate), Expi res: 06/26/2026 Start: 05-06-2024 End: 05-06-2024 Patient encounter procedure 05/06/2024 10:00 AM EST Appointment [facility] [address] [facility] [place] [address] [facility] Start: 04-27-2024 End: 04-27-2024 Patient encounter procedure 04/27/2024 3:00 PM EST Office Visit [facility] [address] [place] [id number] Suzy Jauregui MD [address] [place], [place] [id number] [facility] Start: 04-25-2024 Patient discharge [facility] Start: 04-24-2024 Dual pressure spontaneous ventilation support [facility] Start: 04-24-2024 Aspiration precautions [facility] Start: 04-24-2024 Assessment of risk of venous thromboembolism [facility] Start: 04-24-2024 Cardiac monitoring [facility] Start: 04-24-2024 Care regimes management [facility] Start: 04-24-2024 Catheterization of vein [facility] Start: 04-24-2024 Consultation [facility] Start: 04-24-2024 Continuous pulse oximetry [facility] Start: 04-24-2024 Elevation of head of bed [facility] Start: 04-24-2024 Exercises [facility] Start: 04-24-2024 Fall prevention [facility] Start: 04-24-2024 Inhalation therapy procedure [facility] Start: 04-24-2024 Insertion of catheter into peripheral vein [facility] Start: 04-24-2024 Introduction of urinary catheter [facility] Start: 04-24-2024 Measuring intake and output [facility] Start: 04-24-2024 Notification of physician [facility] Start: 04-24-2024 Oxygen therapy [facility] Start: 04-24-2024 Patient referral to [facility] Start: 04-24-2024 Providing care according to standard [facility] Start: 04-24-2024 Provision of activity privileges [facility] Start: 04-24-2024 Referral to occupational therapist [facility] Start: 04-24-2024 Referral to service [facility] Start: 04-24-2024 Speech therapy assessment [facility] Start: 04-24-2024 Telemedicine consultation with patient [facility] Start: 04-24-2024 Tobacco use cessation education [facility] Start: 04-24-2024 End: 04-24-2024 [facility] Start: 04-24-2024 Following clinical pathway protocol [facility] Start: 04-24-2024 Admission procedure [facility] Start: 04-24-2024 Patient referral to [facility] Start: 04-24-2024 [facility] Start: 04-15-2024 Referral to service [facility] Start: 04-15-2024 Patient discharge [facility] Start: 04-15-2024 Fluid restriction [facility] Start: 04-14-2024 [facility] Start: 04-13-2024 Consultation [facility] Start: 04-13-2024 [facility] Start: 04-13-2024 Elevation of head of bed [facility] Start: 04-13-2024 Patient education [facility] Start: 04-13-2024 [facility] Start: 04-12-2024 Following clinical pathway protocol [facility] Start: 04-12-2024 Ambulation without limitation [facility] Start: 04-12-2024 Assessment of risk of venous thromboembolism [facility] Start: 04-12-2024 Care regimes management [facility] Start: 04-12-2024 Catheterization of vein [facility] Start: 04-12-2024 Elevation of affected extremity [facility] Start: 04-12-2024 Inhalation therapy procedure [facility] Start: 04-12-2024 Insertion of catheter into peripheral vein [facility] Start: 04-12-2024 Measuring intake and output [facility] Start: 04-12-2024 Notification of physician [facility] Start: 04-12-2024 Oxygen therapy [facility] Start: 04-12-2024 Patient education [facility] Start: 04-12-2024 Providing care according to standard [facility] Start: 04-12-2024 End: 04-12-2024 [facility] Start: 04-12-2024 Admission procedure [facility] Start: 04-12-2024 Patient referral to dietitian [facility] Start: 02-13-2024 End: 02-12-2025 RFA Cerebral arteries Bilateral Views W contrast IA IR angiogram cerebral with possible intervention Imaging Routine Ischemic cerebrovascular accident (CVA) (HCC) Bilateral carotid artery stenosis Expected: 02/13/2024, Expires: 02/12/2025 [facility] [employer] Work Phone: Comment on above: Expected: 02/13/2024, Expires: Start: 01-22-2024 Subsequent hospital visit by physician 01/22/2024 10:45 AM EDT Hospital Encounter [facility] [address] [place] [address] Oziel Culp MD [address] [place] [address] [facility] [address] Start: 01-20-2024 End: 01-05-2025 CTA Head vessels and Neck vessels WO and W contrast IV CTA head neck angio w and wo IV contrast Imaging Routine Bilateral carotid artery stenosis Ischemic cerebrovascular accident (CVA) (HCC) Expected: 01/20/2024, Expires: 01/05/2025 [employer] Work Phone: Comment on above: Expected: 01/20/2024, Expires: Start: 01-16-2024 End: 01-15-2025 Creatinine [Mass/volume] in Serum or Plasma Creatinine, Serum Lab Routine Chronic kidney disease, unspecified CKD stage Expected: 01/16/2024 (Approximate), Expires: 01/15/2025 [employer] Work Phone: Comment on above: Expected: 01/16/2024 (Approximate), Expi res: 01/15/2025 Start: 12-01-2023 Influenza vaccination Influenza Vaccine (#1) [facility] [email or web address] Start: 2023 RSV Immunization aged 60 or older (1 - 1-dose 60+ series) RSV Immunization aged 60 or older (1 - 1-dose 60+ series) [facility] Start: 2023 RSV Immunization for Adults (1 - Risk 60-74 years 1-dose series) RSV Immunization for Adults (1 - Risk 60-74 years 1-dose series) [facility] Start: 07-03-2023 Patient referral [facility] Work Phone: Start: 02-18-2023 Anesthesia cervical spine & cord nos ANESTH SPINE CORD SURGERY [facility] Start: 02-18-2023 Njx dx/ther agt pvrt facet jt crv/thrc 1 level INJ PARAVERT F JNT C/T 1 LEV [facility] Start: 02-18-2023 Njx dx/ther agt pvrt facet jt crv/thrc 2nd level INJ PARAVERT F JNT C/T 2 [facility] Start: 02-18-2023 Njx dx/ther agt pvrt facet jt crv/thrc 3+ level INJ PARAVERT F JNT C/T 3 [facility] Start: 02-18-2023 Fluoroscopy guided injection of cervical spinal nerve root OR-Steroid Inj/Cer Thor/1st L [facility] Start: 02-18-2023 Injection of facet joint [facility] Start: 02-18-2023 X-ray of cervical spine Cerv Spine 4 or 5 Views [facility] Start: 02-18-2023 Patient discharge [facility] Start: 12-10-2022 Patient referral [facility] Work Phone: Start: 10-08-2022 Patient referral [facility] Work Phone: Start: 08-03-2022 Patient discharge [facility] Start: 08-03-2022 Referral to occupational therapist [facility] Start: 08-03-2022 Referral to service [facility] Start: 08-02-2022 [facility] Start: 08-02-2022 Following clinical pathway protocol [facility] Start: 08-02-2022 Assessment of risk of venous thromboembolism [facility] Start: 08-02-2022 Cardiac monitoring [facility] Start: 08-02-2022 Care regimes management [facility] Start: 08-02-2022 Catheterization of vein [facility] Start: 08-02-2022 Elevation of head of bed [facility] Start: 08-02-2022 Exercises [facility] Start: 08-02-2022 Fall prevention [facility] Start: 08-02-2022 Implementation of planned interventions [facility] Start: 08-02-2022 Inhalation therapy procedure [facility] Start: 08-02-2022 Insertion of catheter into peripheral vein [facility] Start: 08-02-2022 Introduction of urinary catheter [facility] Start: 08-02-2022 Measuring intake and output [facility] Start: 08-02-2022 Notification of physician [facility] Start: 08-02-2022 Oxygen therapy [facility] Start: 08-02-2022 End: 08-02-2022 Patient referral to dietitian [facility] Start: 08-02-2022 Providing care according to standard [facility] Start: 08-02-2022 Provision of activity privileges [facility] Start: 08-02-2022 Referral to occupational therapist [facility] Start: 08-02-2022 Referral to service [facility] Start: 08-02-2022 Speech therapy assessment [facility] Start: 08-02-2022 Tobacco use cessation education [facility] Start: 08-02-2022 [facility] Start: 08-01-2022 Admission procedure [facility] Start: 08-14-2021 Radionuclide imaging of perfusion of myocardium under exercise stress Nuclear Stress Test - Treadmil [facility] Work Phone: Start: 06-20-2021 Patient discharge [facility] Work Phone: Start: 06-19-2021 Following clinical pathway protocol [facility] Work Phone: Start: 06-19-2021 Care regimes management [facility] Work Phone: Start: 06-19-2021 Notification of physician [facility] Work Phone: Start: 06-19-2021 End: 06-19-2021 [facility] Work Phone: Start: 06-19-2021 Admission procedure [facility] Work Phone: Start: 08-05-2020 COVID-19 Vaccine (3 - Moderna risk series) COVID-19 Vaccine (3 - Moderna risk series) [facility] Start: 07-03-2020 PROSTATE CANCER SCREENING DISCUSSION PROSTATE CANCER SCREENING DISCUSSION [facility] Start: 12-01-2019 Influenza vaccination INFLUENZA (#1) [facility] Start: 09-20-2016 Thyroid stimulating hormone measurement TSH Level [facility] Start: 09-09-2016 [object Object] DIABETIC FOOT EXAM [facility] Start: 12-12-2015 HbA1c (Bld) [Mass fraction] HBA1C [facility] Start: 12-07-2015 Pneumococcal vaccination Pneumococcal Vaccine (2 of 2 - PCV) [facility] Start: 12-07-2015 Pneumococcal Vaccine: 50+ Years (2 of 2 - PCV) Pneumococcal Vaccine: 50+ Years (2 of 2 - PCV) [facility] Start: 12-07-2015 Pneumococcal Vaccine: Pediatrics (0 to 5 Years) and At-Risk Patients (6 to 64 Years) (2 of 2 - PCV) Pneumococcal Vaccine: Pediatrics (0 to 5 Years) and At-Risk Patients (6 to 64 Years) (2 of 2 - PCV) [facility] Start: 08-24-2013 SHINGRIX VACCINE (1 of 2) SHINGRIX VACCINE (1 of 2) [facility] Start: 08-24-2013 Tuberculosis screening COLORECTAL CANCER SCREENING,SEE MODIFIER [facility] Start: 03-10-2009 MMR Vaccines (1 of 1 - Standard series) MMR Vaccines (1 of 1 - Standard series) [facility] Start: 08-24-1982 Urine microalbumin profile DTAP,TDAP,TD (1 - Tdap) [facility] Start: 08-24-1981 ANNUAL PCP TEAM CHRONIC DISEASE VISIT ANNUAL PCP TEAM CHRONIC DISEASE VISIT [facility] Start: 08-24-1981 BP CONTROLLED (<130/80) BP CONTROLLED (<130/80) [facility] Start: 08-24-1981 Diabetes: Urine Albumin-Creatinine Ratio for [facility] Diabetes: Urine Albumin-Creatinine Ratio for [facility] Start: 08-24-1981 Hepatitis B surface antibody level LDL CHOLESTEROL [facility] Start: 08-24-1981 HEPATITIS C SCREENING HEPATITIS C SCREENING [facility] Start: 08-24-1981 Hepatitis C screening Hepatitis C Screening [facility] Start: 08-24-1981 HIV SCREENING HIV SCREENING [facility] Start: 1975 Depression Screening Depression Screening [facility] Start: 08-24-1973 Diabetic foot examination Diabetes: Foot Exam [facility] Start: 08-24-1973 Glaucoma screening Diabetes: Retinopathy Screening [facility] Start: 08-24-1973 Hepatitis B screening URINE ALBUMIN:CREATININE RATIO [facility] Start: 08-24-1973 Hepatitis C antibody, confirmatory test DILATED RETINAL EXAM [facility] Start: 08-24-1973 Preventive dental service Diabetes: Dental Exam [facility] Start: 1963 Creatinine measurement Creatinine Level [facility] Start: 1963 Echocardiography Echocardiogram [facility] Start: 1963 HIV screening HIV Screening [facility] Start: 1963 Potassium measurement Potassium Level [facility] Start: 1963 Screening for malignant neoplasm of colon [facility] Start: 1963 Skin Cancer Screening Skin Cancer Screening [facility] Start: 1963 Thyroid stimulating hormone measurement TSH Level [facility] Start: 1963 Yearly Adult Physical Yearly Adult Physical [facility] Aspergillus Galactom vicenta EIA (Non-Blood Specimen) [facility] Work Phone: Comment on above: Release Upon Ordering for 1 Occurrences starting 09/24/2024 Bacteria identified in Unspecified specimen by Respiratory culture Respiratory Culture/Smear Microbiology Routine ILD (interstitial lung disease) ([facility]) 09/24/2024 8:39 AM EDT [facility] Work Phone: CBC W Auto Different ial panel - Blood [facility] End: 07-24-2024 Complete Pulmonary Function Test (Spirometry/DLCO/Lung Volumes) [facility] Service Area Work Phone: Comment on above: Once for 1 Occurrences starting 07/25/19 until 07/24/2024 DLCO / Diffusion Capacity DLCO / Diffusion Capacity PFT Routine ILD (interstitial lung disease) ([facility]) 08/18/2024 10:39 AM EDT [facility] Work Phone: ECG 12 lead ECG 12 lead CV E CG Routine 05/06/2024 9:00 AM EST [facility] Work Phone: Ferritin [Mass/volum e] in Serum or Plasma [facility] Folate [Mass/volume] in Serum or Plasma [facility] Fungus identified in Unspecified specimen by Culture [facility] Work Phone: Comment on above: Release Upon Ordering for 1 Occurrences starting 09/24/2024 Hepatic function panel [facility] Histoplasma capsulat um Ag [Units/volume] in Serum by Immunoassay [facility] Work Phone: Comment on above: Release Upon Ordering for 1 Occurrences starting 09/24/2024 Iron and Iron bindin g capacity panel - Serum or Plasma [facility] [place] and lambda lig ht chains [facility] Legionella PCR Panel [facility] Work Phone: Comment on above: Release Upon Ordering for 1 Occurrences starting 09/24/2024 Lipid 1996 panel - S verna or Plasma [facility] Lipid 1996 panel - S [facility] or Plasma [facility] Mycobacterium sp identified in Unspecified specimen by Organism specific culture [facility] Work Phone: Comment on above: Release Upon Ordering for 1 Occurrences starting 09/24/2024, 1 completed NM Heart Views W str ess and W radionuclide IV [facility] Work Phone: Non-gynecological cytology method study [facility] Work Phone: Comment on above: Release Upon Ordering for 1 Occurrences starting 09/24/2024, 1 completed End: 09-24-2024 Pathologist review of results [facility] Work Phone: Comment on above: Once (Lab) for 1 Occurrences starting until 09/24/2024, 1 completed Patient Education [facility] Work Phone: Patient referral [facility] Work Phone: End: 07-24-2024 Pulmonary Stress Test (6 Min. Walk) [facility] Work Phone: Comment on above: Once for 1 Occurrences starting 07/25/19 until 07/24/2024 Pulmonary Stress Karly t (6 Min. Walk) Pulmonary Stress Test (6 Min. Walk) PFT Routine ILD (interstitial lung disease) (Multi) 08/18/2024 11:30 AM EDT [facility] Work Phone: Reticulocyte count [facility] Spirometry Pre/Post Bronchodilator Spirometry Pre/Post Bronchodilator PFT Routine ILD (interstitial lung disease) ([facility]) 08/18/2024 11:36 AM EDT [facility] Work Phone: Surgical pathology study [facility] Work Phone: Comment on above: Release Upon Ordering for 1 Occurrences starting 09/24/2024, 1 completed End: 09-24-2024 T-cell subsets CD4 and CD8 panel - Blood [facility] Work Phone: Comment on above: Release Upon Ordering for 1 Occurrences starting 09/24/2024 Once for 1 Occurrenc es starting 09/24/2024 until 09/24/2024 T4 free measurement [facility] T4 free measurement [facility] T4 free measurement [facility] Thiamine measurement [facility] Thyroid stimulating hormone measurement [facility] Thyroid stimulating hormone measurement [facility] Thyroid stimulating hormone measurement [facility] Troponin T.cardiac [Mass/volume] in Serum or Plasma by High sensitivity method [facility] Troponin T.cardiac [Mass/volume] in Serum or Plasma by High sensitivity method [facility] Carotid arteries [facility] Work Phone: Carotid arteries [facility] Carotid arteries [facility] End: 07-23-2024 US Heart Transthoracic [facility] Service Area Work Phone: Comment on above: Once for 1 Occurrences starting 07/24/19 25 until 07/23/2024 Vitamin B12 measurement [facility] Immunizations Immunization Date Immunization Notes Care Provider Fa [facility] 01-13-2024 RSV Adult Recombinan t (Arexvy) Dr. Radha Khan MD Work Phone: [facility] 01-10-2024 influenza, seasonal, injectable, preservative free Dr. Radha Khan MD Work Phone: [facility] 01-18-2023 influenza virus vacc ine, unspecified formulation CHITO BUENROSTRO [employer]ERSON [facility] 01-18-2023 influenza, injectabl e, quadrivalent, preservative free Oziel Culp MD Work Phone: [facility] [email or web address] 02-01-2022 zoster vaccine recombinant CHITO BUENROSTRO [employer]ERSON [facility] 01-26-2022 influenza virus vacc ine, unspecified formulation CHITO BUENROSTRO [employer]PERSON [facility] 01-26-2022 influenza, injectabl e, quadrivalent, contains preservative Oziel Culp MD Work Phone: [facility] 01-26-2022 influenza, injectabl e, quadrivalent, preservative free Dr. Radha Khan Work Phone: [facility] 01-26-2022 influenza, seasonal, injectable Dr. Radha Khan Work Phone: [facility] 01-16-2021 zoster vaccine recombinant CHITO BUENROSTRO [employer]ERSON [facility] 01-06-2021 influenza virus vacc ine, unspecified formulation CHITO BUENROSTRO [employer] ASSEM[employer] F[employer]PERSON [facility] 01-06-2021 influenza, injectabl e, quadrivalent, contains preservative Oziel Culp MD Work Phone: [facility] 11-30-2020 influenza, injectabl e, quadrivalent, preservative free Dr. Radha Khan Work Phone: [facility] 11-30-2020 influenza, seasonal, injectable Dr. Radha Khan Work Phone: [facility] 07-08-2020 Covid (Moderna) Dr. Radha fuller Work Phone: [facility] 06-10-2020 Covid (Moderna) Dr. Radha fuller Work Phone: [facility] 01-27-2020 influenza virus vacc ine, unspecified formulation CHITO BUENROSTRO [employer] [facility] 01-27-2020 influenza, injectabl e, quadrivalent, contains preservative Oziel Culp MD Work Phone: [facility] 01-16-2019 influenza virus vacc ine, unspecified formulation CHITO BUENROSTRO [employer]ERSON [facility] 01-16-2019 influenza, injectabl e, quadrivalent, contains preservative Oziel Culp MD Work Phone: [facility] 01-21-2018 influenza virus vacc ine, unspecified formulation CHITO BUENROSTRO [employer]ERSON [facility] 01-21-2018 influenza, seasonal, injectable Oziel Culp MD Work Phone: [facility] 12-24-2017 influenza, injectabl e, quadrivalent, preservative free Dr. Radha Khan Work Phone: [facility] 12-24-2017 influenza, seasonal, injectable Dr. Radha Khan Work Phone: [facility] 12-09-2015 influenza virus vacc ine, unspecified formulation CHITO BUENROSTRO [employer]ERSON [facility] 12-09-2015 influenza, seasonal, injectable Oziel Culp MD Work Phone: [facility] 12-24-2014 influenza virus vacc ine, unspecified formulation CHITO BUENROSTRO [employer]ERSON [facility] 12-24-2014 influenza, seasonal, injectable Oziel Culp MD Work Phone: [facility] 12-06-2014 pneumococcal polysaccharide vaccine, 23 valent CHITO BUENROSTRO [employer]ERSON [facility] 07-19-2014 tetanus toxoid, redu federica diphtheria toxoid, and acellular pertussis vaccine, adsorbed CHITO BUENROSTRO [employer]ERSON [facility] 02-10-2014 influenza virus vacc ine, unspecified formulation CHITO BUENROSTRO [employer]ERSON [facility] 02-10-2014 influenza, seasonal, injectable Oziel Culp MD Work Phone: [facility] 02-10-2009 novel influenza-H1N1 -09, preservative-free, injectable Oziel Culp MD Work Phone: [facility] [email or web address] Payers Date Payer Category Payer Managed Care (Private) MEDICAL M [employer] SU[employer] MED [id number] 09-19-2023 Self-pay [id number] 07-31-2023 Commercial Managed C are - HMO [id number] 07-31-2023 Unknown MEDICAL MUTUAL M MO SUPERMED [id number] 07/31/2023-Present [address] [place] [address] Commercial [id number] 02-27-2023 Unknown [id number] 10-30-2014 Unknown [id number] 07-30-2009 Unknown [facility]P [facility] [place] THP HMO [id number] 07/30/2009-Present HMO [id number] 07-30-1996 Unknown [place]P [place] [id number] 07/30/1996-03/31/2015 HMO [id number]. [id number] 1965 Unknown [id number] 2.840.1.906119.3.579.2. 627 1963 Unknown [id number] 2.16840.1.680229.3.579.2. 124 1963 Unknown [id number] 2.840.1.628074.3.579.2. 1246 1963 Unknown [id number] 2.840.1.736648.3.579.2. 1242 1963 Unknown [id number] 2.0.1.895425.3.579.2. 1242 1963 Unknown [id number] 2.0.1.432100.3.579.2. 1244 1963 Unknown [id number] 2.0.1.245559.3.579.2. 124 1963 Unknown [id number] 2.0.1.468924.3.579.2. 1244 1963 Unknown [id number] 2.0.1.614493.3.579.2. 1244 1963 Unknown [id number] 2.0.1.332028.3.579.2. 1244 1963 Unknown [id number] 2.0.1.040031.3.579.2. 1244 1963 Unknown [id number] 2.840.1.117144.3.579.2. 1244 1963 Unknown [id number] 2.840.1.877049.3.579.2. 124 Unknown [id number] Unknown [id number] 2.840.1.479722.3.579.2. 462 Unknown [id number] 2.16.840.1.580975.3.579.2. 462 Unknown [id number] 2.16.840.1.470737.3.579.2. 462 Unknown [id number] 2.16.840.1.687016.3.579.2. 462 Unknown [id number] 2.16.840.1.289341.3.579.2. 462 Unknown [id number] 2.16.840.1.408179.3.579.2. 462 Unknown [id number] 2.16.840.1.228944.3.579.2. 462 Unknown [id number] 2.16.840.1.016508.3.579.2. 462 Unknown [id number] 2.16.840.1.319458.3.579.2. 462 Unknown [id number] 2.16840.1.686169.3.579.2. 462 Unknown [id number] 2.16840.1.268852.3.579.2. 462 Unknown [id number] 2.16840.1.935448.3.579.2. 462 Unknown [id number] 2.16.840.1.092756.3.579.2. 462 Unknown [id number] 2.16.840.1.317565.3.579.2. 462 Unknown [id number] 2.16.840.1.179500.3.579.2. 462 Unknown [id number] 2.16.840.1.782903.3.579.2. 462 Unknown [id number] 2.16.840.1.642722.3.579.2. 462 Unknown [id number] 2.16.840.1.814101.3.579.2. 462 Unknown [id number] 2.16.840.1.720781.3.579.2. 462 Unknown [id number] 2.16.840.1.206474.3.579.2. 462 Unknown [id number] 2.16.840.1.278285.3.579.2. 462 Unknown [id number] 2.16.840.1.487870.3.579.2. 462 Unknown [id number] 2.16.840.1.311841.3.579.2. 462 Unknown [id number] 2.16.840.1.034345.3.579.2. 462 Unknown [id number] 2.16.840.1.534100.3.579.2. 462 Unknown [id number] 2.16.840.1.873506.3.579.2. 462 Unknown [id number] 2.16.840.1.915712.3.579.2. 462 Unknown [id number] 2.16840.1.448443.3.579.2. 462 Unknown [id number] 2.16840.1.757031.3.579.2. 462 Unknown [id number] 2.16840.1.561007.3.579.2. 462 Unknown [id number] 2.16.840.1.570504.3.579.2. 462 Unknown [id number] 2.16.840.1.714232.3.579.2. 462 Unknown [id number] 2.16840.1.530753.3.579.2. 462 Unknown [id number] 2.16.840.1.129463.3.579.2. 462 Unknown [id number] 2.16.840.1.257148.3.579.2. 462 Unknown [id number] 2.16.840.1.481557.3.579.2. 462 Unknown [id number] 2.16.840.1.447156.3.579.2. 462 Unknown [id number] 2.16840.1.905464.3.579.2. 462 Unknown [id number] 2.16.840.1.229399.3.579.2. 462 Unknown [id number] 2.16.840.1.377150.3.579.2. 462 Unknown [id number] 2.16.840.1.993911.3.579.2. 462 Unknown [id number] 2.16.840.1.598030.3.579.2. 462 Unknown [id number] 2.16.840.1.997824.3.579.2. 462 Unknown [id number] 2.16840.1.248099.3.579.2. 462 Unknown [id number] 2.16840.1.654946.3.579.2. 462 Unknown [id number] 2.840.1.679191.3.579.2. 462 Unknown [id number] 2.840.1.220215.3.579.2. 462 Unknown [id number] 2.840.1.575082.3.579.2. 462 Unknown [id number] 2.840.1.388904.3.579.2. 462 Unknown [id number] 2.840.1.576195.3.579.2. 462 Unknown [id number] 2.840.1.508452.3.579.2. 462 Unknown [id number] 2.840.1.170473.3.579.2. 462 Unknown [id number] 2.16840.1.929174.3.579.2. 462 Unknown [id number] 2.16840.1.391252.3.579.2. 462 Unknown [id number] 2.16840.1.080475.3.579.2. 462 Unknown [id number] 2.16840.1.635910.3.579.2. 462 Unknown [id number] 2.16.840.1.337733.3.579.2. 462 Unknown [id number] 2.16.840.1.345653.3.579.2. 462 Unknown [id number] 2.16.840.1.013386.3.579.2. 462 Unknown [id number] 2.16.840.1.240850.3.579.2. 462 Unknown [id number] 2.16840.1.289206.3.579.2. 462 Unknown [id number] 2.16840.1.600893.3.579.2. 462 Unknown [id number] 2.840.1.071658.3.579.2. 462 Unknown [id number] 2.16840.1.957011.3.579.2. 462 Unknown [id number] 2.840.1.886191.3.579.2. 462 Unknown [id number] 2.840.1.616856.3.579.2. 462 Unknown [id number] 2.840.1.890462.3.579.2. 462 Unknown [id number] 2.840.1.706505.3.579.2. 462 Unknown [id number] 2.16840.1.142212.3.579.2. 462 Unknown [id number] 2.840.1.886595.3.579.2. 462 Unknown [id number] 2.16840.1.615331.3.579.2. 462 Unknown [id number] 2.16840.1.414117.3.579.2. 462 Unknown [id number] 2.16840.1.933016.3.579.2. 462 Unknown [id number] 2.16840.1.393175.3.579.2. 462 Unknown [id number] 2.16840.1.159554.3.579.2. 462 Unknown [id number] 2.16.840.1.775822.3.579.2. 462 Unknown [id number] 2.840.1.883026.3.579.2. 462 Unknown [id number] 2.16.840.1.253720.3.579.2. 462 Unknown [id number] 2.16840.1.042821.3.579.2. 462 Unknown [id number] 2.840.1.977409.3.579.2. 462 Unknown [id number] 2.840.1.927541.3.579.2. 462 Unknown [id number] 2.840.1.639671.3.579.2. 462 Unknown [id number] 2.840.1.629623.3.579.2. 462 Unknown [id number] 2.840.1.759624.3.579.2. 462 Unknown [id number] 2.840.1.761783.3.579.2. 462 Unknown [id number] 2.840.1.547418.3.579.2. 462 Unknown [id number] 2.840.1.319795.3.579.2. 462 Unknown [id number] 2.840.1.444262.3.579.2. 462 Unknown [id number] 2.840.1.375999.3.579.2. 462 Unknown [id number] 2.840.1.633091.3.579.2. 462 Unknown [id number] 2.840.1.273651.3.579.2. 462 Unknown [id number] 2.840.1.807895.3.579.2. 462 Unknown [id number] 2.16840.1.996913.3.579.2. 462 Unknown [id number] 2.840.1.072664.3.579.2. 462 Unknown [id number] 2.16.840.1.921216.3.579.2. 462 Social History Date Type Detail Facility Start: 06-14-2007 End: 09-26-2024 Tobacco smoking status NHIS Never smoker [facility] Start: 06-14-2007 Alcohol intake Not Asked [facility] Start: 1965 Sex Assigned At Not on file [facility] Start: 07-16-2021 End: 07-17-2023 Tobacco smoking status LAIS Unknown if ever smoked [facility] Start: 03-28-2020 None [facility] Start: 03-28-2020 Spouse/ Significant Other [facility] Start: 04-20-2018 Non-smoker [facility] Start: 1965 Sex Assigned At Male [facility] Start: 10-03-2023 Gender identity Identifies as male gender (finding) [facility] Start: 01-06-2024 End: 09-24-2024 Sexual orientation Not on file [facility] Start: 01-06-2024 Tobacco use and exposure Smokeless tobacco non-user [facility] Start: 01-06-2024 End: 05-06-2024 Alcoholic beverage intake Ex-drinker (finding) [facility] Start: 01-06-2024 End: 09-24-2024 History of Social function [facility] Start: 10-03-2023 Sex Male (finding) [facility] Start: 06-26-2024 End: 09-24-2024 Alcoholic beverage intake Lifetime non-drinker (finding) [facility] Work Phone: Start: 05-22-2024 Sexual orientation Heterosexual (finding) [facility] Work Phone: Start: 06-16-2024 End: 08-28-2024 Exposure to SARS-CoV-2 (event) Not sure [facility] How often to you hav e a drink containing alcohol? Never [facility] Work Phone: How many standard drinks containing alcohol do you have on a typical day? Patient does not drink [facility] Work Phone: Medical Equipment Procedure Code Equipment Code Equipment Origin al Text Equipment Identifier Dates Colonoscopy [id number] [facility] Start: 03-27-2024 Stent Inlay Opti ma 7fr Taper [place] Green Phreecoat Polymer 28cm [facility] [id number] Start: 09-06-2015 Pen Needle, Diab etic [...] 5/32 needle Start: 06-01-2021 Device Clsr Mynx bow stapler 5fr y - [id number] Start: 05-06-2024 Pen Needle, Diab etic (Bd [...] Functional Status Date Assessment Result Facility 09-24-2024 Bailey - suicide severity rating scale screener - recent [C-SSRS] [facility] Work Phone: 08-07-2024 Total score [AUDIT-C] 0 08/08/19 25 2:09 PM EDT Rivka Gerardo MA [facility] Work Phone: 04-25-2024 Functional status Ambulates [facility] Work Phone: 04-15-2024 Functional status Ambulates;Chair [facility] Work Phone: 10-03-2023 Functional Status Room check performed [facility] 10-03-2023 Functional Status [facility] 10-03-2023 Functional Status [facility] 10-03-2023 Functional Status bilateral knee high removed/off [facility] 10-02-2023 Functional Status [facility] 10-02-2023 Functional Status Demonstrates C orrect Call Light Use Yes [facility] 10-02-2023 Functional Status [facility] 10-02-2023 Functional Status Single level home [facility] 10-02-2023 Functional Status None [facility] 08-03-2022 Functional status Ambulates [facility] Work Phone: 06-20-2021 Functional status Up ad harini [facility] Work Phone: [facility] Work Phone: Mental Status Date Assessment Result Facility 09-26-2024 Cognitive function Voice/Name [facility] Work Phone: 04-25-2024 [facility] Work Phone: 04-15-2024 [facility] function [facility] Work Phone: 10-03-2023 Mental Status Oriented x 4 [facility] 10-02-2023 Mental Status [facility] 10-02-2023 Mental Status [facility] 02-18-2023 Cognitive function Voice/Name [facility] Work Phone: 08-03-2022 Cognitive function Awake;Alert;A ppropriate;Fo llows Commands;Responds to vocal stimuli [facility] Work Phone: 08-03-2022 Cognitive function Voice/Name [facility] Work Phone: 06-20-2021 Cognitive function Appropriate;Cooperativ e [facility] Work Phone: Clinical Notes 08-02-2022 to 09-26-2024 Note Date & Type Note Facility 09-26-2024 Discharge summary [facility] 09-26-2024 Radiology Diagnostic study note [facility] Imaging Services [address] [place], [place] [address] STROKE Brain/Head without Cont MR#: [id number] Acct: [id number] Name: KRUNAL LEOS Rep #: [id number] : 1965 M 59 From: Astrid Newberry MD PCP: Dr. Brandt Winter MD Status: REG ER Study:STROKE Brain/Head without Cont Date of Exam: 09/26/24 Exam# [id number] Ordering Dr: Domonique Avitia MD EXAM: STROKE BRAIN/HEAD WITHOUT CONT CLINICAL HISTORY: 59 y/o M with NEURO DEFICIT, ACUTE, STROKE SUSPECTED. COMPARISON: Brain MRI 04/25/2024, CTA head and neck 04/24/2024. TECHNIQUE: Routine CT imaging of the head without IV contrast. Additional multiplanar reformats were obtained. Dose reduction techniques were used including intermediate exposure control (AEC),iterative reconstruction technique, and/or mA and/or KV dose adjustments based on patient's size. FINDINGS: The ventricles, sulci and cisterns are normal for patient age. There is no evidence of acute intracranial hemorrhage or herniation. There is no midline shift, mass effect, or extra-axial collection. Mild scattered supratentorial white matter hypodensities and additional hypodensities within the bilateral centrum semiovale. Tiny lacunar type infarct within the right basal ganglia. The carvalho-white matter interfaces are otherwise maintained. Retention cyst or polyp within the left maxillary sinus. The orbits, visualizedparanasal sinuses and mastoids are unremarkable. No acute calvarial fracture or scalp hematoma. CT/STROKE Brain/Head without Cont IMPRESSION: No acute intracranial finding. Chronic microvascular ischemic changes and age-related changes as described. Dr. Newberry discussed these findings via telephone with Dr. Avitia at 4:36 pm on09/26/24. Reading Location: [facility] CC: Dr. Brandt Winter MD; Dr. Angel Avitia MD ~ Awnings Mechanic: Signed [facility] 09-26-2024 Discharge summary Note Date/Time September 26, 2024 5:05pm [facility] Medical Records Department [address] [place] [address] Emergency Department Summary 09/26/24 MR#: [id number] Acct: [id number] Name: KRUNAL LEOS Rep #:[id number] : 1965 59 From: Angel Avitia MD PCP: Dr. Brandt Winter MD Status:REG ER Location: ED HPI History of Present Illness Chief Complaint: Numb/Ting Detail of Chief Complaint: Patient has tingling and weakness left side. Onset between 1413 30 on Informant: patient and spouse/S.O. Onset/Context/Timing Onset: Yesterday Context: Sudden Onset Timing: Continuous Quality and Location: Positive for Left Facial Droop (Per ), Left Arm Parasthesia, Left Leg Parasthesia, Left Arm Weakness, Left Leg Weakness and Difficulty with Ambulation Onset: September 25 between 14:00 & 14:30 Current Severity: Mild Maximum Severity: Moderate Worsened by: Patient was off his aspirin, Brilinta and Eliquis Relieved by: Not applicable Associated Symptoms Associated Symptoms: Negative for Headache, Nausea, Vomiting or Chest Pain Narrative Narrative: Patient is a 59-year-old male. He has history of CVA, chronic respiratory failure, microalbuminemia due to type 2 diabetes, obstructive sleep apnea, insulin-dependent diabetic on insulin pump, anemia, positive rheumatoid factor, chronic diastolic congestive heart failure who presents because of persistent weakness left side. Onset was yesterday between 14:00 and 14:30. states he took 4 people to assist him to the car. Patient stopped his aspirin, Brilinta and Eliquis because he had a lung biopsy to determine cause of his chronic hypoxia and lung disease. This was performed at [facility]. Patient did take his medicine last evening and this morning. He denies headache, double vision, blurred vision or change in vision. He had no trouble with speech or swallowing. His weakness was left side. states he had left-sided facial droop. He denies cardiac or respiratory symptoms from baseline. acknowledges thathe is pale compared to normal. Prior similar symptoms: Yes Recent Illness/Hospitalization: Yes (Lung biopsy [facility]) [facility] Medical History Hyperlipidemia Ischemic cerebrovascular accident (CVA) CHF (congestive heart failure) Chronic respiratory failure with hypoxia KIANNA (obstructive sleep apnea) Presence of insulin pump CKD (chronic kidney disease) Hypothyroidism Essential (primary) hypertension Diabetes Acute hypoxemic respiratory failure Chronic diastolic CHF (congestive heart failure) Obesity Exertional shortness of breath Iron deficiency anemia due to chronic blood loss 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 Morbid obesity with BMI of 45.0-49.9, adult Atherosclerotic heart disease of [place] coronary artery without angina pectoris Mini stroke (~10/01/23) Peripheral vestibulopathy Cranial nerve disorder Polyneuropathy Wears glasses Depression Anxiety Cancer Thyroid disease Insulin dependent diabetes mellitus Arthritis History of renal disease Prostate disease Gastric reflux CPAP (continuous positive airway pressure) dependence Sleep apnea Shortness of breath on exertion History of echocardiogram History of stress test History of CHF (congestive heart failure) Cardiology follow-up encounter History of atrial fibrillation Neuropathy Multiple thyroid nodules Microalbuminuria Thyroid nodule Double vision Non-proliferative diabetic retinopathy KIANNA treated with BiPAP Vertigo Congestive heart failure (CHF) Low testosterone Carotid stenosis High cholesterol Vision loss of right eye Vision loss of left eye Anemia Non-smoker Atrial fibrillation Hypertension Paroxysmal atrial fibrillation Polyneuropathy due to type 2 diabetes mellitus History of non-ST elevation myocardial infarction (NSTEMI) (03/28/20) TIA (transient ischemic attack) (2018) Hodgkin disease GERD (gastroesophageal reflux disease) BPH (benign prostatic hyperplasia) Anxiety and depression Morbid obesity with BMI of 45.0-49.9, adult Nephrolithiasis Diabetes mellitus, type II Home Medications ?Medication ?Instructions ?Recorded ?Last Taken ?Type tamsulosin 0.4 mg capsule 0.4 mg PO DAILY prostate 12/1511/16/23 History duloxetine 60 mg capsule,delayed 60 mg PO DAILY depres wanda 04/17/18 04/24/24 08:10 History release (Cymbalta) 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,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,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 #1 ea 07/26/20 Unknown Rx (Dexcom G6 Picture Frames Inspector) atorvastatin 80 mg tablet (Lipitor) 80 mg PO QHS arsenio sterol 09/04/21 04/23/24 20:09 History 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 transmitter (Dexcom #1 ea 12/29/21 Unkno wn Rx G6 Transmitter device) infusion set for insulin pump 10/08/22 Unknown Histor y insulin pump controller 10/08/22 Unknown History 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 sensor (Dexcom G6 #1 ea 02/25/23 Unknown Rx Sensor device) insulin regular hum U-500 conc 500 75 unit (0.15 mL) c ontinuous 11/11/23 11/16/23 Rx unit/mL subcutaneous soln (Humulin subcutaneous infusi on DAILY blood R U-500 (Concentrated) Insulin) sugar #20 mL ferrous sulfate 325 mg (65 mg 325 mg PO DAILY anemia 1 05/03/23 04/24/24 08:00 History iron) tablet (Feosol) amlodipine 5 mg tablet 5 mg PO QDAY blood pressure 12/13/24 01/24/25 08:08 History aspirin 325 mg tablet 325 mg PO DAILY heart health 03/13/24 04/24/24 08:00 History metoprolol succinate 100 mg 100 mg PO DAILY heart #90 tabs 03/27/24 04/24/24 08:00 Rx tablet,extended release 24 hr lisinopril 40 mg tablet 40 mg PO DAILY blood pressur e 04/12/24 04/24/24 08:00 History levothyroxine 112 mcg tablet 112 mcg PO DAILY thyroid 04/24/24 04/24/24 08:00 History ticagrelor 90 mg tablet (Brilinta) 90 mg PO BID Unknown History furosemide 40 mg tablet (Lasix) 40 mg PO BID diuretic #270 tabs 06/23/24 Unknown Rx pantoprazole 40 mg tablet,delayed 40 mg PO BID acid re flux #60 tabs 07/22/24 Unknown Rx release (Protonix) empagliflozin 25 mg tablet 25 mg PO DAILY diabetes #30 tabs 08/12/24 Unknown Rx (Jardiance) fenofibrate micronized 134 mg 134 mg PO QDAY #30 caps 08/19/24 Unknown Rx capsule apixaban 5 mg tablet (Eliquis) 5 mg PO BID blood thinn er #180 tabs 08/31/24 Unknown Rx buspirone 10 mg tablet 10 mg PO .1-3 times daily An xiety 09/16/24 Unknown History oxycodone-acetaminophen 5 mg-325 1 tab PO TID PRN 08/30 11/23 Unknown History mg tablet prednisone 5 mg tablet See Rx Instructions PO .COMP SOFY 09/16/24 Unknown History Allergy/AdvReac Type Severity Reaction Status Date / Time metoclopramide HCl (From Allergy Severe Anaphylaxis Verified 09/16/24 10:05 Reglan) Family History Brother Heart disease Mother CVA (cerebral vascular accident) Hypertension Rheumatoid arthritis Father Diabetes Other Alcohol abuse ulcer disease Surgical History History of cardiac catheterization History of lymph node excision History of left heart catheterization (2009) Hx of nephrolithotomy with removal of calculi History of thoracentesis (2015) Social History household members: spouse and none Smoking Status: Never smoker Electronic Cigarette Use: not used second hand exposure: No alcohol intake: never substance use type: does not use what type of physical activity do you participate in: none ROS ROS ED Constitutional Constitutional ED: Denies chills, fever(s), subjective, sweats or weakness Eyes Eyes: Denies blurry vision, change in vision or diplopia ENT ENT ED: Denies ear pain, rhinorrhea or sore throat Cardiovascular Cardiovascular: Denies chest pain, palpitations or paroxysmal nocturnal dyspnea Respiratory/Chest Respiratory/Chest: Reports dyspnea, dyspnea on exertion and other Details: Respiratory symptoms are chronic. ; Denies cough or paroxysmal nocturnal dyspnea Gastrointestinal Gastrointestinal: Denies abdominal pain, nausea or vomiting Musculoskeletal Musculoskeletal: Denies arthralgias, back pain or myalgias Integumentary Denies rash Neurologic Neurologic: Reports weakness; Denies headache(s) or paresthesias Endocrine Endocrinology: Denies polydipsia, polyphagia or polyuria Hematologic/Lymphatic Hematologic/Lymphatic: Reports easy bleeding and easy bruising EXAM Physical Exam Const Vital Signs: 09/26/24 15:29 09/26/24 15:39 09/26/24 15:41 Temperature 97.9 F Temperature Source Oral Pulse Rate 84 78 Respiratory Rate 18 25 H Blood Pressure 133/64 H 133/64 H Blood Pressure Mean 87 87 Pulse Ox 97 95 Oxygen Delivery Method Nasal Cannula Nasal Cannula Nasal Cannula Oxygen Flow Rate (L/min) 4 4 4 09/26/24 16:09 09/26/24 16:30 Temperature Temperature Source Pulse Rate 91 79 Respiratory Rate 23 H 26 H Blood Pressure 134/104 H 146/73 H Blood Pressure Mean 114 97 Pulse Ox 96 Oxygen Delivery Method Nasal Cannula Oxygen Flow Rate (L/min) 3 Positive well nourished and well developed Constitutional Narrative: Blood pressure slightly elevated. Patient is not hypoxic on oxygen. He appearsin no distress. General Appearance ED: well developed HEENT Reports moist mucous membranes atraumatic Eyes PERRL and EOMs intact bilaterally General Eye ED: Negative for pale conjunctiva or scleral icterus Neck no lymphadenopathy, supple and no JVD Neck Narrative: Trachea is midline. There is no stridor. Chest Wall inspection of chest normal and palpation of chest normal Resp normal respiratory effort and clear to auscultation bilaterally Cardio Rate: regular rate Rhythm: regular rhythm Heart Sounds: S2 normal GI normal to inspection, nondistended, normoactive bowel sounds, soft to palpation,non-tender, non-distended and no masses Extremity Negative for normal to inspection Extremity Narrative: Patient has multiple bruises right upper extremity. He appears pale. General Extremety ED: Yes edema; Negative for tenderness General Extremity: edema Neuro oriented x3 and CN's II-XII intact bilaterally Neuro Narrative: There is slight asymmetry of his face. This is old. It was noted on his [place] driver's license. [place] Coma Scale: document GCS findings Spontaneous Obeys Commands Oriented 15 Sensorium / Orientation: alert Speech: speech normal Sensory Exam: No sensory level loss detected Motor Exam: Negative for strength 5/5 throughout Psych mental status grossly normal Skin no wounds Skin Narrative: Patient is very pale. General Skin Exam: jaundice Lesions: no lesions Rashes: no rashes MDM MDM MDM Narrative Medical decision making narrative: Patient presents with stroke that is improving. Probably due to the fact that his antithrombotic and anticoagulant were held for lung biopsy. Will obtain CT. Stroke order set was initiated. History and physical is not consistent consistent or suggestive of hemorrhage. Suspect this is due to a thrombotic cause. Since he is diabetic we will obtain electrolyte panel to assess glucose anion gap. CBC to assess H&H since he is very pale and platelet count. Coags may be abnormal due to the fact that he is on Eliquis. History & Record Review Discussion w/independent historian: Patient and Family Additional record(s) reviewed:: Prior outpatient record and Prior labs Lab Data Attestation: I reviewed the patient's lab results. Lab results narrative: White count is elevated. White count has been elevated on prior tests. BUN/creatinine are elevated. They are approximately patient's baseline. Coags are unremarkable. Electrolyte panel is remarkable for glucose of 246. CO2 anion gap is normal. First troponin is elevated 47. 2 hours pending. Labs: Laboratory Results - last 24 hr 09/26/24 15:40 WBC 14.0 H RBC 3.79 L Hgb 9.1 L Hct 30.0 L MCV 79.2 L MCH 24.0 L MCHC 30.3 L RDW Std Deviation 50.9 H RDW Coeff of Gavi 17.9 H Plt Count 237 MPV 10.4 Immature Gran % (Auto) 0.800 Neut % (Auto) 85.3 H Lymph % (Auto) 4.2 L [place] % (Auto) 8.7 Eos % (Auto) 0.6 Baso % (Auto) 0.4 Absolute Neuts (auto) 11.9 H Absolute Lymphs (auto) 0.58 L Nucleated RBC % 0 PT 13.1 INR 1.0 APTT 20.8 L Sodium 138 Potassium 4.2 Chloride 100 Carbon Dioxide 22.9 Anion Gap 15 BUN 31 H Creatinine 1.26 H Est GFR (MDRD) Non-Af 65 BUN/Creatinine Ratio 24.6 H Glucose 246 H Calcium 9.0 Troponin T High Sens 47 H Radiography Diagnostic Testing: Clinical Impression(s) from Imaging Studies Brain CT 09/26/24 15:39 IMPRESSION: No acute intracranial finding. Chronic microvascular ischemic changes and age-related changes as described. Dr. Newberry discussed these findings via telephone with Dr. Avitia at 4:36 pm on09/26/24. Reading Location: [id number] Radiologist informing there is no evidence of acute stroke or hemorrhage. CT was reviewed by me. There is nothing obvious that I saw or any change compared to prior. EKG Initial EKG: Attestation: I personally reviewed and interpreted this EKG as follows: Interpretation: Sinus Rhythm (Rate is 82. [place] interval 238 ms. QRS durations 106 ms. QT durations are 96 ms. [place] is normal. There is evidence of LVH. There is evidence of premature ventricular beats. Patient does have evidence of LVH by voltage criteria.) Prior: Unchanged Management Discussion w/another healthcare provider: Hospitalist (Case discussed with Dr. Eula Berrios. PCU obs) Discharge Plan Triage Chief Complaint: Numb/Ting ED Provider: Angel Avitia Dx/Rx/DC Orders Clinical Impression: Acute CVA (cerebrovascular accident), KIANNA (obstructive sleep apnea), Essential (primary) hypertension, Hypothyroidism, Interstitial lung disease, Renal insufficiency, Hyperlipidemia, Obesity, 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 with hyperglycemia Prescriptions: No Action (DME) Dexcom G6 Picture Frames Inspector Misc See Rx Instructions .ROUTE .MEDSUPPLY Qty: 1 0RF Rx Instructions: As directed (DME) infusion set for insulin pump Infusion Set See Rx Instructions .Route Rx Instructions: As directed (DME) insulin pump controller Misc See Rx Instructions .Route Rx Instructions: As directed aspirin 325 mg tablet 325 mg PO DAILY Patient Comments: coated fenofibrate micronized 134 mg capsule 134 mg PO QDAY Qty: 30 7RF amlodipine 5 mg tablet 5 mg PO QDAY prednisone 5 mg tablet See Rx Instructions PO .COMPLEX Rx Instructions: Prednisone Burst orally; oxycodone-acetaminophen 5-325 mg tablet 1 tab PO TID PRN Brilinta 90 mg tablet 90 mg PO BID tamsulosin 0.4 MG capsule 0.4 mg PO DAILY duloxetine [Cymbalta] 60 MG capsule,delayed release(DR/EC) 60 mg PO DAILY buspirone 10 mg tablet 10 mg PO .1-3 times daily Rx Instructions: pt states he usually takes 1 daily atorvastatin [Lipitor] 80 MG tablet 80 mg PO QHS Rx Instructions: cholesterol ferrous sulfate [Feosol] 325 mg (65 mg iron) tablet 325 mg PO DAILY lisinopril 40 mg tablet 40 mg PO DAILY levothyroxine 112 mcg tablet 112 mcg PO DAILY (DME) Dexcom G6 Transmitter Device See Rx Instructions .ROUTE .MEDSUPPLY Qty: 1 3RF Rx Instructions: As directed (DME) Dexcom G6 Sensor Device See Rx Instructions .ROUTE .MEDSUPPLY Qty: 1 6RF Rx Instructions: As directed Humulin R U-500 (Conc) Insulin 500 unit/mL solution 75 unit continuous subcutaneous infusion DAILY Qty: 20 5RF Patient Comments: INSULIN PUMP; pt. states that he does bolus with meals based on pump's suggested dose; unsure of basal rate; pump is currently broken, to bring in new wiring in AM metoprolol succinate 100 mg tablet extended release 24 hr 100 mg PO DAILY Qty: 90 3RF furosemide [Lasix] 40 mg tablet 40 mg PO BID Qty: 270 3RF Rx Instructions: Take extra 40 mg dose at 5 PM for increased leg swelling or weight gain 5 pounds in 1 week. pantoprazole [Protonix] 40 mg tablet,delayed release (DR/EC) 40 mg PO BID Qty: 60 3RF Jardiance 25 mg tablet 25 mg PO DAILY Qty: 30 5RF Eliquis 5 mg tablet 5 mg PO BID Qty: 180 3RF Primary Care Provider: Brandt Winter Referrals: Brandt Winter MD [Primary Care Provider] - Print Language: Burkinan Disposition Disposition: Acute Care Hospital [facility] NIHSS NIHSS 1a. Level of Consciousness: 0 - Alert; keenly responsive 1b. LOC Questions: 0 - Answers BOTH questions correctly 1c. LOC Commands: 0 - Performs BOTH tasks correctly 2. Best Gaze: 0 - Normal 3. Visual: 0 - No visual loss 4. Facial Palsy: 0 - Normal symmetrical movements 5a. Left Arm: 1 - Drift; arm drifts downward but doesn?t hit the bed 5b. Right Arm: 0 - No drift; arm holds 90 (or 45) degrees for full 10 seconds 6a. Left Le - Drift; leg falls by the end of 5-seconds, but does not hit bed 6b. Right Le - No drift; leg holds 30-degree position for full 5 seconds 7. Limb Ataxia: 0 - Absent 8. Sensory: 0 - Normal; no sensory loss 9. Best Language: 0 - No aphasia; normal 10. Dysarthria: 0 - Normal 11. Extinction and Inattention: 0 - No abnormality Total: 2 Stroke Questions Stroke Team Activated: No Reviewed Inclusion/Exclusion criteria: No (Outside of window) Was Patient considered for Endovascular Intervention?: No (Outside of window) No contraindications from thrombolytic administration: No (Patient presents greater than 24 hours since onset) What to do if you have Problems For any increased pain, shortness of breath, bleeding, nausea or vomiting, chestpain, or any unexpected problems, contact your Primary Care Provider. Call [facility] ([phone]) or report to the closest Emergency Room. Call 911 if necessary. 09/26/24 1705 <Electronically signed by Angel Avitia MD> Cosigner Signature (if applicable): CC: Dr. Brandt Winter MD ~ Signed [facility] Work Phone: [phone] Hospital Discharge instructions* Discharge Instructions* Dick Nguyen MD - 09/24/2024 9:17 AM EDT [facility] Interventional Pulmonology The anesthetics, sedatives or narcotics [...] on weekends: / and ask for the Presser Hand on-call(Pager Number: [phone]) documented in this [facility] Work Phone: [phone] 176-380206-26-2025 Attending History and physical note* Maeve Pringle MD - 09/24/2024 7:30 AM EDT H&P reviewed. The patient was examined and [...] Pulmonary, Critical Care, and Sleep Medicine Consultation [address] Pulmonary Clinic/[facility] Patient was referred by his PCP [...] surgery total pulmonary decortication in 2015 at [facility]. He was hospitalized in [place] from 03/02-03/04/2024 for acute hypoxic respiratory failure. [...] Review Audit Reviewed by Heavenly Sparks MA ([employer]) on 08/28/24 at 1158 Medication Order Taking? Sig Documenting Provider Last Dose Status albuterol 90 mcg/actuation inhaler [id number] INHALE 2 PUFFS BY MOUTH EVERY 4 HOURS NEEDED FOR SHORTNESS OF BREATH OR WHEEZING Historical ProviderMD Active amLODIPine (Norvasc) 5 mg tablet [id number] Take 1 tablet (5 mg) by mouth once daily. Historical ProviderMD Active aspirin 325 mg tablet [id number] Take 1 tablet (325 mg) by mouth once daily. Historical ProviderLORNActive atorvastatin (Lipitor) 80 mg tablet [id number] Take 1 tablet (80 mg) by mouth once daily at bedtime.Historical ProviderMD Active betamethasone, augmented, (Diprolene) 0.05 % lotion [id number] APPLY TO RASH ON THE TRUNK OR SCALP 1-2 TIMES DAILY NEEDED Historical ProviderMD Active bismuth subsalicylate (Pepto Bismol) 262 mg chewable tablet [id number] CHEW AND SWALLOW 2 TABLETS BYMOUTH 3 TIMES A DAY for 2 weeks. max 16 tablets per 24 hours Patient not taking: Reported on 08/07/2024 Historical ProviderMD Active Brilinta 90 mg tablet [id number] 1 tablet (90 mg). Historical ProviderMD Active busPIRone (Buspar) 10 mg tablet [id number] Take 1 tablet (10 mg) by mouth 3 times a day. Historical ProviderMD Active clopidogrel (Plavix) 75 mg tablet [id number] Take 1 tablet (75 mg) by mouth early in the morning.. Historical ProviderMD Active dapagliflozin propanediol (Farxiga) 5 mg [id number] Take 1 tablet (5 mg) by mouth once daily. Historical ProviderMD Active Dexcom G6 Sensor device [id number] USE DIRECTED FOR CONTINUOUS BLOOD GLUCOSE MONITORING, CHANGE SENSOR EVERY 10 DAYS Historical ProviderMD Active DULoxetine (Cymbalta) [address] capsule [id number] Take 1 capsule (60 mg) by mouth once daily. Historical ProviderMD Active Eliquis 5 mg tablet [id number] Take 1 tablet (5 mg) by mouth 2 times a day. Historical ProviderMD Active ergocalciferol (Vitamin D-2) 1250 mcg (50,000 units) capsule [id number] Take 1 capsule (1,250 mcg) by mouth. Historical ProviderMD Active fenofibrate (Tricor) 54 mg tablet [id number] Take 1 tablet (54 mg) by mouth once daily. Historical ProviderMD Active furosemide (Lasix) 40 mg tablet [id number] Take 1 tablet (40 mg) by mouth. Gloria ProviderMD Active glimepiride (Amaryl) 4 mg tablet [id number] Take 1 tablet (4 mg) by mouth early in the morning.. Patient not taking: Reported on 08/07/2024 Gloria Rahman MD Active glipiZIDE (Glucotrol) 5 mg tablet [id number] Take 1 tablet (5 mg) by mouth. Patient not taking: Reported on 08/07/2024 Gloria ProviderMD Active HumuLIN R U-500, Conc, Insulin 500 unit/mL CONCENTRATED injection [id number] INJECT 75 UNITS DAILY VIA CONTINUOUS SUBCUTANEOUS INFUSION. DISCARD VIAL AFTER 40 DAYS Patient not taking: Reported on 08/07/2024 Gloria ProviderMD Active Jardiance 25 mg [id number] Take 1 tablet (25 mg) by mouth once daily. Historical ProviderMD Active levothyroxine (Synthroid, Levoxyl) 112 mcg tablet [id number] Take 1 tablet (112 mcg) by mouth once daily. Historical ProviderMD Active lisinopril 40 mg tablet [id number] Take 1 tablet (40 mg) by mouth once daily. Historical ProviderMD Active metFORMIN (Glucophage) 500 mg tablet [id number] Take 1 tablet (500 mg) by mouth 2 times daily (morning and late afternoon). Historical ProviderMD Active metoprolol succinate XL (Toprol-XL) 100 mg 24 hr tablet [id number] TAKE 1 TABLET BY MOUTH DAILY for heart Historical ProviderMD Active Mucinex DM 60-1,200 mg tablet extended release 12 hr [id number] Take 1 tablet by mouth every 12 hours. Historical ProviderMD Active oxyCODONE-acetaminophen (Percocet) 5-325 mg tablet [id number] Take 1 tablet by mouth 2 times a day as needed. Patient not taking: Reported on 08/07/2024 Gloria Rahman MD Active pantoprazole (ProtoNix) 40 mg EC tablet [id number] Take 1 tablet (40 mg) by mouth. Historical ProviderMD Active potassium citrate CR (Urocit-K-10) 10 mEq ER tablet [id number] Take 1 tablet (10 mEq) by mouth twicea day. Historical ProviderMD Active predniSONE (Deltasone) 20 mg tablet [id number] Take 0.5 tablets (10 mg) by mouth early in the morning.. Historical ProviderMD Active predniSONE (Deltasone) 20 mg tablet [id number] Take 2 tablets (40 mg) by mouth once daily. Patient not taking: Reported on 08/07/2024 Rosalino Padron MD Active predniSONE (Deltasone) 5 mg tablet [id number] Take 4 tablets (20 mg) by mouth once daily for 30 days, THEN 3 tablets (15 mg) once daily for 30 days, THEN 2 tablets (10 mg) once daily for 30 days, THEN1 tablet (5 mg) once daily for 14 days. Rosalino Padron MD Active spironolactone (Aldactone) 50 mg tablet [id number] Take 1 tablet (50 mg) by mouth once daily. Patient not taking: Reported on 08/07/2024 Historical ProviderMD Active tamsulosin (Flomax) 0.4 mg 24 hr capsule [id number] Take 1 capsule (0.4 mg) by mouth once daily. Historical ProviderMD Active traMADol (Ultram) 50 mg tablet [id number] Take 1 tablet (50 mg) by mouth. [...] once above completed Rosalino Padron MD 08/28/2024 T [facility] Work Phone: [phone] History and physical note* Maeve Pringle MD - 09/24/2024 7:30 AM EDT H&P reviewed. The patient was examined and [...] Pulmonary, Critical Care, and Sleep Medicine Consultation [address] [facility] Clinic/[facility] Patient was referred by his PCP [...] surgery total pulmonary decortication in 2015 at [facility]. He was hospitalized in [place] from 03/02-03/04/2024 for acute hypoxic respiratory failure. [...] Review Audit Reviewed by Heavenly Sparks MA ([employer]) on 08/28/24 at 1158 Medication Order Taking? Sig Documenting Provider Last Dose Status albuterol 90 mcg/actuation inhaler [id number] INHALE 2 PUFFS BY MOUTH EVERY 4 HOURS NEEDED FOR SHORTNESS OF BREATH OR WHEEZING Historical ProviderMD Active amLODIPine (Norvasc) 5 mg tablet [id number] Take 1 tablet (5 mg) by mouth once daily. Historical ProviderMD Active aspirin 325 mg tablet [id number] Take 1 tablet (325 mg) by mouth once daily. Historical ProviderLORNActive atorvastatin (Lipitor) 80 mg tablet [id number] Take 1 tablet (80 mg) by mouth once daily at bedtime.Historical ProviderMD Active betamethasone, augmented, (Diprolene) 0.05 % lotion [id number] APPLY TO RASH ON THE TRUNK OR SCALP 1-2 TIMES DAILY NEEDED Historical ProviderMD Active bismuth subsalicylate (Pepto Bismol) 262 mg chewable tablet [id number] CHEW AND SWALLOW 2 TABLETS BYMOUTH 3 TIMES A DAY for 2 weeks. max 16 tablets per 24 hours Patient not taking: Reported on 08/07/2024 Historical ProviderMD Active Brilinta 90 mg tablet [id number] 1 tablet (90 mg). Historical ProviderMD Active busPIRone (Buspar) 10 mg tablet [id number] Take 1 tablet (10 mg) by mouth 3 times a day. Historical ProviderMD Active clopidogrel (Plavix) 75 mg tablet [id number] Take 1 tablet (75 mg) by mouth early in the morning.. Historical ProviderMD Active dapagliflozin propanediol (Farxiga) 5 mg [id number] Take 1 tablet (5 mg) by mouth once daily. Historical ProviderMD Active Dexcom G6 Sensor device [id number] USE DIRECTED FOR CONTINUOUS BLOOD GLUCOSE MONITORING, CHANGE SENSOR EVERY 10 DAYS Historical ProviderMD Active DULoxetine (Cymbalta) [address] capsule [id number] Take 1 capsule (60 mg) by mouth once daily. Historical ProviderMD Active Eliquis 5 mg tablet [id number] Take 1 tablet (5 mg) by mouth 2 times a day. Gloria Rahman MD Active ergocalciferol (Vitamin D-2) 1250 mcg (50,000 units) capsule [id number] Take 1 capsule (1,250 mcg) by mouth. Gloria Rahman MD Active fenofibrate (Tricor) 54 mg tablet [id number] Take 1 tablet (54 mg) by mouth once daily. Gloria Rahman MD Active furosemide (Lasix) 40 mg tablet [id number] Take 1 tablet (40 mg) by mouth. Gloria Rahman MD Active glimepiride (Amaryl) 4 mg tablet [id number] Take 1 tablet (4 mg) by mouth early in the morning.. Patient not taking: Reported on 08/07/2024 Gloria Rahman MD Active glipiZIDE (Glucotrol) 5 mg tablet [id number] Take 1 tablet (5 mg) by mouth. Patient not taking: Reported on 08/07/2024 Gloria Rahman MD Active HumuLIN R U-500, Conc, Insulin 500 unit/mL CONCENTRATED injection [id number] INJECT 75 UNITS DAILY VIA CONTINUOUS SUBCUTANEOUS INFUSION. DISCARD VIAL AFTER 40 DAYS Patient not taking: Reported on 08/07/2024 Gloria Rahman MD Active Jardiance 25 mg [id number] Take 1 tablet (25 mg) by mouth once daily. Historical ProviderMD Active levothyroxine (Synthroid, Levoxyl) 112 mcg tablet [id number] Take 1 tablet (112 mcg) by mouth once daily. Gloria Rahman MD Active lisinopril 40 mg tablet [id number] Take 1 tablet (40 mg) by mouth once daily. Historical ProviderMD Active metFORMIN (Glucophage) 500 mg tablet [id number] Take 1 tablet (500 mg) by mouth 2 times daily (morning and late afternoon). Gloria ProviderMD Active metoprolol succinate XL (Toprol-XL) 100 mg 24 hr tablet [id number] TAKE 1 TABLET BY MOUTH DAILY for heart Historical ProviderMD Active Mucinex DM 60-1,200 mg tablet extended release 12 hr [id number] Take 1 tablet by mouth every 12 hours. Gloria Rahman MD Active oxyCODONE-acetaminophen (Percocet) 5-325 mg tablet [id number] Take 1 tablet by mouth 2 times a day as needed. Patient not taking: Reported on 08/07/2024 Gloria Rahman MD Active pantoprazole (ProtoNix) 40 mg EC tablet [id number] Take 1 tablet (40 mg) by mouth. Historical ProviderMD Active potassium citrate CR (Urocit-K-10) 10 mEq ER tablet [id number] Take 1 tablet (10 mEq) by mouth twicea day. Historical ProviderMD Active predniSONE (Deltasone) 20 mg tablet [id number] Take 0.5 tablets (10 mg) by mouth early in the morning.. Historical ProviderMD Active predniSONE (Deltasone) 20 mg tablet [id number] Take 2 tablets (40 mg) by mouth once daily. Patient not taking: Reported on 08/07/2024 Rosalino Padron MD Active predniSONE (Deltasone) 5 mg tablet [id number] Take 4 tablets (20 mg) by mouth once daily for 30 days, THEN 3 tablets (15 mg) once daily for 30 days, THEN 2 tablets (10 mg) once daily for 30 days, THEN1 tablet (5 mg) once daily for 14 days. Rosalino Padron MD Active spironolactone (Aldactone) 50 mg tablet [id number] Take 1 tablet (50 mg) by mouth once daily. Patient not taking: Reported on 08/07/2024 Historical ProviderMD Active tamsulosin (Flomax) 0.4 mg 24 hr capsule [id number] Take 1 capsule (0.4 mg) by mouth once daily. Historical ProviderMD Active traMADol (Ultram) 50 mg tablet [id number] Take 1 tablet (50 mg) by mouth. [...] Rosalino Padron MD 08/28/2024 documented in this [facility] Work Phone: 1(946) 175-251105-15-2025 Radiology Diagnostic study [facility]05-09-2025 History of Present illness Narrative* Rosalino Padron MD - 08/07/2024 2:30 PM EDT Images from the original note were not included. Department of Medicine Division of Pulmonary, Critical Care, and Sleep Medicine Consultation [address] Pulmonary Clinic/[facility] Patient was referred by his PCP [...] surgery total pulmonary decortication in 2015 at [facility]. He was hospitalized in [place] from 03/02-03/04/2024 for acute hypoxic respiratory failure. [...] Review Audit Reviewed by Rivka Gerardo MA ([employer]) on 08/07/24 at 1413 Medication Order Taking? Sig Documenting Provider Last Dose Status albuterol 90 mcg/actuation inhaler [id number] Yes INHALE 2 PUFFS BY MOUTH EVERY 4 HOURS NEEDED FOR SHORTNESS OF BREATH OR WHEEZING Historical ProviderMD Active amLODIPine (Norvasc) 5 mg tablet [id number] Yes Take 1 tablet (5 mg) by mouth once daily. HistoricalProviderMD Active aspirin 325 mg tablet [id number] Yes Take 1 tablet (325 mg) by mouth once daily. Historical ProviderMD Active atorvastatin (Lipitor) 80 mg tablet [id number] Yes Take 1 tablet (80 mg) by mouth once daily at bedtime. Historical ProviderMD Active betamethasone, augmented, (Diprolene) 0.05 % lotion [id number] APPLY TO RASH ON THE TRUNK OR SCALP 1-2 TIMES DAILY NEEDED Historical ProviderMD Active bismuth subsalicylate (Pepto Bismol) 262 mg chewable tablet [id number] CHEW AND SWALLOW 2 TABLETS BYMOUTH 3 TIMES A DAY for 2 weeks. max 16 tablets per 24 hours Patient not taking: Reported on 08/07/2024 Historical ProviderMD Active Brilinta 90 mg tablet [id number] Yes 1 tablet (90 mg). Historical ProviderMD Active busPIRone (Buspar) 10 mg tablet [id number] Yes Take 1 tablet (10 mg) by mouth 3 times a day. Historical ProviderMD Active clopidogrel (Plavix) 75 mg tablet [id number] Take 1 tablet (75 mg) by mouth early in the morning.. Gloria ProviderMD Active dapagliflozin propanediol (Farxiga) 5 mg [id number] Take 1 tablet (5 mg) by mouth once daily. Gloria ProviderMD Active Dexcom G6 Sensor device [id number] Yes USE DIRECTED FOR CONTINUOUS BLOOD GLUCOSE MONITORING, CHANGE SENSOR EVERY 10 DAYS Historical ProviderMD Active DULoxetine (Cymbalta) [address] capsule [id number] Yes Take 1 capsule (60 mg) by mouth once daily. Historical ProviderMD Active Eliquis 5 mg tablet [id number] Yes Take 1 tablet (5 mg) by mouth 2 times a day. Historical ProviderMD Active ergocalciferol (Vitamin D-2) 1250 mcg (50,000 units) capsule [id number] Take 1 capsule (1,250 mcg) by mouth. Historical ProviderMD Active fenofibrate (Tricor) 54 mg tablet [id number] Yes Take 1 tablet (54 mg) by mouth once daily. Historical ProviderMD Active furosemide (Lasix) 40 mg tablet [id number] Yes Take 1 tablet (40 mg) by mouth. Historical ProviderMD Active glimepiride (Amaryl) 4 mg tablet [id number] Take 1 tablet (4 mg) by mouth early in the morning.. Patient not taking: Reported on 08/07/2024 Gloria Rahman MD Active glipiZIDE (Glucotrol) 5 mg tablet [id number] Take 1 tablet (5 mg) by mouth. Patient not taking: Reported on 08/07/2024 Historical MD Lacey Active HumuLIN R U-500, Conc, Insulin 500 unit/mL CONCENTRATED injection [id number] INJECT 75 UNITS DAILY VIA CONTINUOUS SUBCUTANEOUS INFUSION. DISCARD VIAL AFTER 40 DAYS Patient not taking: Reported on 08/07/2024 Gloria Rahman MD Active Jardiance 25 mg [id number] Yes Take 1 tablet (25 mg) by mouth once daily. Historical ProviderMD Active levothyroxine (Synthroid, Levoxyl) 112 mcg tablet [id number] Yes Take 1 tablet (112 mcg) by mouth once daily. Historical ProviderMD Active lisinopril 40 mg tablet [id number] Yes Take 1 tablet (40 mg) by mouth once daily. Gloria Rahman MD Active metFORMIN (Glucophage) 500 mg tablet [id number] Take 1 tablet (500 mg) by mouth 2 times daily (morning and late afternoon). Gloria Rahman MD Active metoprolol succinate XL (Toprol-XL) 100 mg 24 hr tablet [id number] Yes TAKE 1 TABLET BY MOUTH DAILY for heart Historical MD Lacey Active Mucinex DM 60-1,200 mg tablet extended release 12 hr [id number] Take 1 tablet by mouth every 12 hours. Gloria Rahman MD Active oxyCODONE-acetaminophen (Percocet) 5-325 mg tablet [id number] Take 1 tablet by mouth 2 times a day as needed. Patient not taking: Reported on 08/07/2024 Gloria Rahman MD Active pantoprazole (ProtoNix) 40 mg EC tablet [id number] Yes Take 1 tablet (40 mg) by mouth. Gloria Rahman MD Active potassium citrate CR (Urocit-K-10) 10 mEq ER tablet [id number] Take 1 tablet (10 mEq) by mouth twicea day. Historical MD Lacey Active predniSONE (Deltasone) 20 mg tablet [id number] Take 0.5 tablets (10 mg) by mouth early in the morning.. Gloria Rahman MD Active predniSONE (Deltasone) 20 mg tablet [id number] Take 2 tablets (40 mg) by mouth once daily. Patient not taking: Reported on 08/07/2024 Rosalino Padron MD Active spironolactone (Aldactone) 50 mg tablet [id number] Take 1 tablet (50 mg) by mouth once daily. Patient not taking: Reported on 08/07/2024 Gloria Rahman MD Active tamsulosin (Flomax) 0.4 mg 24 hr capsule [id number] Yes Take 1 capsule (0.4 mg) by mouth once daily.Gloria Rahman MD Active traMADol (Ultram) 50 mg tablet [id number] Take 1 tablet (50 mg) by mouth. [...] Rosalino Padron MD 08/07/2024 [facility] Work Phone: 1(157) 482-690405-09-2025 Instructions* Patient Instructions* Rosalino Padron MD - 08/07/2024 2:30 PM [...] breathing test and walking test. Ok to doublebook on last clinic time slot For scheduling purposes: Call to schedule a breathing or a walking test Call [phone] to schedule EKG's, Echocardiograms and Cardiopulmonary Stress Tests. Call [phone] to schedule Radiology tests such as Nuclear Medicine Stress Tests, CT Scans, and MRI's. Should you have any questions Please Call our pulmonary nurse Linda Marie at [phone] or my bilingual legal assistant Puneet Leone at [phone] [facility] Work Phone: [phone]) 403-492403-28-2025 History of Present illness Narrative* Rosalino Padron MD - 06/26/2024 11:30 AM EDT Images from the original note were not included. Department of Medicine Division of Pulmonary, Critical Care, and Sleep Medicine Consultation [address] Pulmonary Clinic/[facility] Patient was referred by his PCP (Dr. Radha Peace) to evaluate for ILD. I have independently interviewed and examined the patient in the office and reviewed available records. Physician HPI : (06/26/2024) At baseline, patient has dyspnea on exertion, but none at rest. The dyspnea on exertionstarted many years ago, but has mostly been [...] surgery total pulmonary decortication in 2015 at [facility]. He was hospitalized in [place] from 03/02-03/04/2024 for acute hypoxic respiratory failure. [...] Review Audit Reviewed by Suly Johnston MA ([employer]) on 06/26/24 at 1224 Medication Order Taking? Sig Documenting Provider Last Dose Status albuterol 90 mcg/actuation inhaler [id number] Yes INHALE 2 PUFFS BY MOUTH EVERY 4 HOURS NEEDED FOR SHORTNESS OF BREATH OR WHEEZING Historical Provider, Active amLODIPine (Norvasc) 5 mg tablet [id number] Take 1 tablet (5 mg) by mouth once daily. Historical Provider, Active aspirin 325 mg tablet [id number] Take 1 tablet (325 mg) by mouth once daily. Historical Provider, LORNActive atorvastatin (Lipitor) 80 mg tablet [id number] Take 1 tablet (80 mg) by mouth once daily at bedtime.Historical ProviderMD Active betamethasone, augmented, (Diprolene) 0.05 % lotion [id number] Yes APPLY TO RASH ON THE TRUNK OR SCALP 1-2 TIMES DAILY NEEDED Historical ProviderMD Active bismuth subsalicylate (Pepto Bismol) 262 mg chewable tablet [id number] Yes CHEW AND SWALLOW 2 TABLETS BY MOUTH 3 TIMES A DAY for 2 weeks. max 16 tablets per 24 hours Historical ProviderMD Active Brilinta 90 mg tablet [id number] Yes 1 tablet (90 mg). Historical Provider, Active busPIRone (Buspar) 10 mg tablet [id number] Take 1 tablet (10 mg) by mouth 3 times a day. Historical ProviderMD Active clopidogrel (Plavix) 75 mg tablet [id number] Yes Take 1 tablet (75 mg) by mouth early in the morning.. Historical ProviderMD Active dapagliflozin propanediol (Farxiga) 5 mg [id number] Yes Take 1 tablet (5 mg) by mouth once daily. Historical ProviderMD Active Dexcom G6 Sensor device [id number] Yes USE DIRECTED FOR CONTINUOUS BLOOD GLUCOSE MONITORING, CHANGE SENSOR EVERY 10 DAYS Historical ProviderMD Active DULoxetine (Cymbalta) [address] capsule [id number] Take 1 capsule (60 mg) by mouth once daily. Historical ProviderMD Active Eliquis 5 mg tablet [id number] Take 1 tablet (5 mg) by mouth 2 times a day. Historical ProviderMD Active ergocalciferol (Vitamin D-2) 1250 mcg (50,000 units) capsule [id number] Yes Take 1 capsule (1,250 mcg) by mouth. Historical ProviderMD Active fenofibrate (Tricor) 54 mg tablet [id number] Take 1 tablet (54 mg) by mouth once daily. Historical ProviderMD Active furosemide (Lasix) 40 mg tablet [id number] Yes Take 1 tablet (40 mg) by mouth. Historical ProviderMD Active glimepiride (Amaryl) 4 mg tablet [id number] Yes Take 1 tablet (4 mg) by mouth early in the morning..Historical ProviderMD Active glipiZIDE (Glucotrol) 5 mg tablet [id number] Yes Take 1 tablet (5 mg) by mouth. Historical ProviderMD Active HumuLIN R U-500, Conc, Insulin 500 unit/mL CONCENTRATED injection [id number] Yes INJECT 75 UNITS DAILY VIA CONTINUOUS SUBCUTANEOUS INFUSION. DISCARD VIAL AFTER 40 DAYS Historical ProviderMD Active Jardiance 25 mg [id number] Take 1 tablet (25 mg) by mouth once daily. Historical ProviderMD Active levothyroxine (Synthroid, Levoxyl) 112 mcg tablet [id number] Take 1 tablet (112 mcg) by mouth once daily. Gloria ProviderMD Active lisinopril 40 mg tablet [id number] Take 1 tablet (40 mg) by mouth once daily. Historical ProviderMD Active metFORMIN (Glucophage) 500 mg tablet [id number] Take 1 tablet (500 mg) by mouth 2 times daily (morning and late afternoon). Historical ProviderMD Active metoprolol succinate XL (Toprol-XL) 100 mg 24 hr tablet [id number] TAKE 1 TABLET BY MOUTH DAILY for heart Historical ProviderMD Active Mucinex DM 60-1,200 mg tablet extended release 12 hr [id number] Yes Take 1 tablet by mouth every 12 hours. Historical ProviderMD Active oxyCODONE-acetaminophen (Percocet) 5-325 mg tablet [id number] Take 1 tablet by mouth 2 times a day as needed. Historical ProviderMD Active pantoprazole (ProtoNix) 40 mg EC tablet [id number] Yes Take 1 tablet (40 mg) by mouth. Historical ProviderMD Active potassium citrate CR (Urocit-K-10) 10 mEq ER tablet [id number] Yes Take 1 tablet (10 mEq) by mouth twice a day. Historical ProviderMD Active predniSONE (Deltasone) 20 mg tablet [id number] Yes Take 0.5 tablets (10 mg) by mouth early in the morning.. Historical ProviderMD Active spironolactone (Aldactone) 50 mg tablet [id number] Yes Take 1 tablet (50 mg) by mouth once daily. Historical ProviderMD Active tamsulosin (Flomax) 0.4 mg 24 hr capsule [id number] Take 1 capsule (0.4 mg) by mouth once daily. Gloria ProviderMD Active traMADol (Ultram) 50 mg tablet [id number] Yes Take 1 tablet (50 mg) by [...] ANCA, ESR, CRP, CPK,aldolase, myositis ab panel ordered on 06/26/2024. -will discuss [place] on follow up. -Discussed antifibrotic therapy. Not [...] Rosalino Padron MD 06/26/2024 [facility] Work Phone: 1(413) 801-834503-28-2025 Instructions* Patient Instructions* Rosalino Padron MD - 06/26/2024 11:30 AM EDT Krunal Conner Harmeet it was pleasure seeing you in clinic [...] evaluated for black mold. You can contact [facility] in [place], phone number is [phone] for a home inspection We will see you back in clinic in 1-2 months/weeks For scheduling purposes: Call to schedule a breathing or a walking test Call [phone] to schedule EKG's, Echocardiograms and Cardiopulmonary Stress Tests. Call [phone] to schedule Radiology tests such as Nuclear Medicine Stress Tests, CT Scans, and MRI's. Should you have any questions Please Call our pulmonary nurse Linda Marie at [phone] or my bilingual legal assistant Puneet Leone at [phone] documented in this [facility]Un[facility] Work Phone: [phone]) 374-112203-06-2025 Evaluation note* Diagnosis Onset Date Resolution Status Admit Date Fatigue noneactive June 04 1:20pm Interstitial lung [...] 2024 11:16am Ischemic cerebrovascular accident (CVA) resolved August 17, 2024 11:16am Polyneuropathy inactive August 17, 2024 11:16am Fatigue noneactive August 17, 2024 11:16am Fatigue noneactive September 15 12:53pm Hyperlipidemia acute September 16, 2024 9:59am CKD (chronic kidney disease) chronic September 16, 2024 9:59am Diabetes chronic September 16 9:59am Essential (primary) hypertension chr onic September 16, 2024 9:59am Hypothyroidism chronic September 16, 2024 9:59am Insulin pump titration chronic Ju 2024 9:59am Microalbuminuria due to type 2 diabetes mellitus chronic September 16 9:59am Obesity chronic September 16 9:59am Presence of insulin pump chronic September 16, 2024 9:59am Acute CVA (cerebrovascular accident) acute September 26, 2024 5:17pm Hyperlipidemia acute September 26, 2024 5:17pm Interstitial lung disease acute September 26, 2024 5:17pm Renal insufficiency acute September 26, 2024 5:17pm 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 wit h hyperglycemia acute September 26, 2024 5:17pm Essential (primary) hypertension chr onic September 26, 2024 5:17pm Hypothyroidism chronic September 26, 2024 5:17pm Obesity chronic September 26 5:17pm KIANNA (obstructive sleep apnea) chroni c September 26, 2024 5:17pm [facility] Work Phone: 1(241) 359-254502-20-2025 Evaluation note* Diagnosis Onset Date Resolution Status Admit Date Interstitial lung disease acute May 21, 2024 10:41am Chronic diastolic CHF (congestive heart failure) chronic 2024 10:41am Essential (primary) hypertension chronic May 21 10:41am Dyspnea on exertion resolved 2024 10:41am Ischemic cerebrovascular accident (CVA) resolved May 21 10:41am Paroxysmal atrial fibrillation inact nicole May [...] 2024 11:16am Ischemic cerebrovascular accident (CVA) resolved August 17, 2024 1 1:16am Polyneuropathy inactive August 17, 2024 11:16am Fatigue noneactive August 17, 2024 11:16am Fatigue noneactive September 15 12:53pm [facility] Work Phone: 1(355) 375-893302-07-2025 Telephone encounter Note* Telephone Encounter - Oziel Culp MD - 05/08/2024 10:43 AM EST Spoke with Harmeet regarding results of PRU test. He confirms [...] 1 year. Sooner prn. MD Jose Antonio [employer] Work Phone: [phone]) 993-960602-07-2025 Miscellaneous Notes* Telephone Encounter - Oziel Culp [...] RTC 6 months - 1 year. Sooner prsalma. MD Jose Antonio documented in this [facility]02-05-2025 Note* Perioperative Nursing Note - Mendel River RN - 05/06/2024 4:02 PM EST Phase 2 care completed. Iv removed and dc instructions provided. Will dc to home with family Right groin site benign and neuro unchanged NIH 0 [id number]* Perioperative Nursing Note - Mendel River RN - 05/06/2024 4:02 PM EST Phase 2 care completed. Iv removed and dc instructions provided. Will dc to home with family Right groin site benign and neuro unchanged NIH 0 [id number] Miscellaneous Notes* Perioperative Nursing Note - Mendel River RN - 05/06/2024 4:02 PM EST Phase 2 care completed. Iv removed and dc instructions provided. Will dc to home with family Right groin site benign and neuro unchanged NIH 0 documented in this [facility]02-05-2025 NotePatient: Krunal Leos Procedure Summary Date: 05/06/24 Room / Location: [facility] Special Procedures Anesthesia Start: 124 Anesthesia [...] Resp 20 05/06/24 1415 SpO2 100 % 05/06/241516 Vitals shown include unfiled device data. Anesthesia [...] discharged once all PACU criteria has been met.[facility] NotePatient: Krunal Leos Procedure Summary Date: 05/06/24 Room / Location: [facility] Special Procedures Anesthesia Start: 1243 Anesthesia [...] Allowed opportunity for questions and acknowledgement of understanding.[facility]02-05-[facility] Nurse Note* Se Hensley RN - 05/06/2024 1:47 PM EST Patient arrived from home, Dr. Jose Antonio schilling to speak with the patient regarding DCA with possible carotid stenting, consent obtained. Patient was placed supine on exam table prepped and draped in sterile fashion. Telemetry monitors placed, sedation provided by [facility]. Patient tolerated procedure well. Transfer to ICU. [id number] Nurse Note* Se Hensley RN - 05/06/2024 1:47 PM EST Patient arrived from home, Dr. Jose Antonio schilling to speak with the patient regarding DCA with possible carotid stenting, consent obtained. Patient was placed supine on exam table prepped and draped in sterile fashion. Telemetry monitors placed, sedation provided by [facility]. Patient tolerated procedure well. Transfer to ICU. * Se Hensley RN - 05/05/2024 1:45 PM EST Report given to IR rn, neuro assessment completed along with groin site check. documented in this [facility]02-05-2025 Consult note* Rianna Yan MD [...] PLAN: 1. Obtain P2 Y12 study 2. [place] Brilinta 90 mg twice daily x 30 [...] 10 to 15 minutes. Was hospitalized at [place] and had Plavix added at that time. [...] Symptoms resolved. He was again hospitalized at [facility]. No medicationchanges were made. April 2024: [...] care Cc: Mey Loya APRN - * [employer] Work Phone: [phone]) 973-392602-05-2025 Consult note* Rianna Yan MD - 05/06/2024 [...] PLAN: 1. Obtain P2 Y12 study 2. [place] Brilinta 90 mg twice daily x 30 [...] 10 to 15 minutes. Was hospitalized at [place] and had Plavix added at that time. [...] Symptoms resolved. He was again hospitalized at [facility]. No medicationchanges were made. April 2024: [...] Loya APRN - * documented in this [facility]02-05-2025 NoteIVR History & Physical Inpatient consult to Anesthesiology-- Consult performed by: DEJUAN Leal CNP Consult ordered by: DEJUAN Mak CNP Name: Krunal Leos : 1965 (Age-58 y.o.) Date of Service: Pt seen/examined on 05/06/2024 Procedure Information Date/Time: 05/06/24 1000 Procedure: IR ANGIOGRAM CEREBRAL W POSSIBLE INTERVENTION Location: [facility] Special Procedures Chief Complaint: Carotid stenosis [...] of Hodgkin's Lymphoma - remote, dx in 's - s/p chemotherapy and radiation tx - [...] for gait problem. Skin (more content not included)...[facility]02-05-2025 Note Patient: Krunal Leos Procedure Information Date/Time: 05/06/24 1000 Procedure: IR ANGIOGRAM CEREBRAL W POSSIBLE INTERVENTION Location: [facility] Special Procedures Relevant Problems Anesthesia (+) History [...] Past Medical History: No date: A-fib (CMS/HCC) (HCC) No date: Bilateral carotid artery stenosis No date: BPH (benign prostatic hyperplasia) No date: CHF (congestive heart failure) ([facility]) No date: Chronic idiopathic pulmonary fibrosis ([facility]) No date: CVA (cerebral vascular accident) ([facility]) No date: DM (diabetes mellitus), type 2 ([facility]) No date: HTN (hypertension) No date: Hyperlipidemia [...] no echo on file, yearly appointments with investments manager in [place] DM[place] - on insulin pump, has basal [...] infarct, age indeterminate Equipment Requests: Additional Equipment RequestsMy[facility]-04-2025 Nurse Note* Se Hensley RN - 05/05/2024 1:45 PM EST Report given to IR rn, neuro assessment completed along with groin site check. [facility]01-27-2025 History of Present illness Narrative* Suzy Jauregui [...] Provider, Continuous Glucose Sensor (Dexcom G6 Sensor) [facility] Dexcom G6 Sensor Mis, USE DIRECTED FOR [...] Stallworth MD ergocalciferol (Vitamin D2) 1.25 MG (02632 UT) capsule Take 1 capsule by mouth [...] 4 mg by mouth daily. 10/01/23 Historical ProviderMD glipiZIDE (Glucotrol) 5 MG tablet Take 1 tablet (5 mg) by mouth every morning (before breakfast). Do not start before October 06, 2023. 10/06/23 01/06/24 Harmeet Stallworth MD HYDROcodone-acetaminophen ([place]) 5-325 MG tablet Take 1 tablet by [...] by mouth 2 times daily. 01/16/23 Historical ProviderMD spironolactone (Aldactone) 50 MG tablet Take 50 mg by mouth daily. 09/06/23 Historical Provider, tamsulosin (Flomax) 0.4 MG 24 hr capsule Take 0.4 mg by mouth daily. 12/11/23 Historical Provider, traMADol (Ultram) 50 MG tablet Take 50 [...] prior imaging and most recent CT from [facility]) and not his right carotid artery. [...] Jauregui MD Vascular Surgery documented in this [facility]01-25-2025 [facility]01-23-2025 Note* Care Coordination - Coreen Clifton [...] Main Entrance which islocated at [address] from [facility]. You may use [employer]. Each patient to receive one validation ticket for [employer]. It is also possible to park in the Main Parking Garage. Proceed to bridge into hospital and check in with Same Day Surgery. [id number] NoteSpoke with patient. Reviewed instructions for procedure. [...] at [address] from [employer]. You may use [employer]. Each patient to receive one validation ticket for [employer]. It is also possible to park in the Main Parking Garage. Proceed to bridge into hospital and check in with Same Day Surgery.[facility]01-23-2025 Miscellaneous Notes* Care Coordination - Coreen Clifton [...] at [address] from [employer]. You may use [employer]. Each patient to receive one validation ticket for [employer]. It is also possible to park in the Main Parking Garage. Proceed to bridge into hospital and check in with Same Day Surgery. documented in this [facility]01-22-2025 Evaluation note* Diagnosis Onset Date [...] Chronic diastolic CHF (congestive heart failure) chronic u 2024 10:41am Essential (primary) hypertension chronic May 21, 2 025 10:41am Ischemic cerebrovascular accident (CVA) chronic May 21, 2 025 10:41am Dyspnea on exertion resolved Febru 2024 10:41am Paroxysmal atrial fibrillation inact nicole [...] 2:27pm Hyperlipidemia acute August 17, 2024 11:16am [facility] Work Phone: 1([phone]) 635-606701-16-2025 Evaluation note* Diagnosis Onset Date Resolution Status Admit Date CKD (chronic kidney disease) chronic April 16, 2024 9:21am Diabetes chronic April 16, 2024 9:21am Essential (primary) hypertension chronic April 16 9:21am Hypothyroidism chronic April 162024 9:21am Insulin pump titration chronic 2024 9:21am Obesity chronic April 16, 2024 [...] 30 1:24pm Ischemic cerebrovascular accident (CVA) chronic Salome 30th, 20 25 1:24pm Dyspnea on exertion resolved 2024 1:24pm [...] 1:22pm Fatigue noneactive August 06, 2024 2:27pm [facility] Work Phone: 1(307) 568-934601-15-2025 [facility]01-12-2025 Evaluation note* Diagnosis Onset Date Resolution [...] April 162024 9:21am [facility] 9:21am Obesity chronic April 16, 2024 [...] Chronic diastolic CHF (congestive heart failure) chronic Febr2024 10:41am Essential (primary) hypertension chronic May 21 10:41am Ischemic cerebrovascular accident (CVA) chronic February 20th, 2 025 10:41am Dyspnea on exertion resolved Febru brayan2024 10:41am Paroxysmal atrial fibrillation inact nicole May [...] 1:22pm Fatigue noneactive August 06, 2024 2:27pm [facility] [employer] Work Phone: 1(479) 254-223412-27-2024 [facility]12-04-2024 [facility]11-13-2024 Telephone encounter Note* Telephone Encounter - [...] we will determine when to resume Eliquis. [employer] Work Phone: 1(588) 554-324411-13-2024 Miscellaneous Notes* Telephone Encounter - DEJUAN Mak [...] Name of caller: Megan Contact phone number: [phone] Relationship to Patient: care team amanda Provider: Jose Antonio Practice: Endovascular Chief Complaint/Reason for Call: please send all lab work from September to fax [phone] HEATH Best time of day caller can be reached: any Patient advised that office/PCP has 24-48 business hours to return their call: No documented in this [facility]11-13-2024 Miscellaneous Notes* Telephone Encounter - [...] Name of caller: Megan Contact phone number: [phone] Relationship to Patient: care team amanda Provider: Jose Antonio Practice: Endovascular Chief Complaint/Reason for Call: please send all lab work from September to fax [phone] HEATH Best time of day caller can be reached: any Patient advised that office/PCP has 24-48 business hours to return their call: No documented in this encounterSLake[facility] CenterSxwjjl73-04-6013 Telephone encounter Note* Telephone Encounter - Lisa Sandoval - 02/12/2024 9:13 AM EST This patient left a voicemail returning a call regarding his test results with Dr. Hutton Please advise:) [facility]edwq35-44-3430 Telephone encounter Note* Telephone Encounter - Ena Enriquez - 02/06/2024 7:52 AM EST Name of caller: Megan Contact phone number: [phone] Relationship to Patient: care team amanda Provider: Jose Antonio Practice: Endovascular Chief Complaint/Reason for Call: please send all lab work from September to fax [phone] HEATH Best time of day caller can be reached: any Patient advised that office/PCP has 24-48 business hours to return their call: No [facility]Hnlvrm39-39-5413 [facility]10-07-2024 History of Present illness Narrative* Oziel Culp MD - 01/06/2024 11:00 AM EDT History of Present Illness: 58 yo man here for fu stroke and bilateral ICA stenosis. He originally presented 09/2023 for left hemiparesis and was transferred [facility] from [facility]. He was found to have right hemispheric [...] episode of left hemiparesis. He went to [facility] and was found to have increased stroke burden of the right hemisphere. Vascular surgery wasconsulted and no surgical procedure was recommended. He had a 3rd event of left hemiparesis the following week and a CT was done at [place] [facility]. At that time clopidogrel was added (in addition to ASA and Eliquis). The patient returned to normal and was discharged from the ED to home. 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 He is anonsmoker. He does report [...] 2023., Disp: 30 tablet, Rfl: 0 HYDROcodone-acetaminophen ([place]) 5-325 MG tablet, Take 1 tablet by [...] , Rfl: ergocalciferol (Vitamin D2) 1.25 MG (19862 UT) capsule, Take 1 capsule by mouth [...] and clopidogrel I have requested images from [facility] to evaluate distribution of new ischemic [...] Smoking cessation counseling: Yes documented in this [facility]08-15-2024 [facility]07-06-2024 Plan of care note* Care Plan [...] address these barriers include . Patient discharged. [facility]Gmjjdw25-57-2095 Miscellaneous Notes* Care Plan - Dariana Lawrence [...] Limits Permission given to speak with patient event marketing representative/caregiver as indicated: Confirmation of Payer with patient/family: Yes Payer Name: [place]: No Confirmation of Primary Care Physician: Confirmed [...] 0 x 3. He was transferred from [facility] with CVA/TIA. Vascular and Neurology have been consulted. Needs carotid US. Anticipate home with no needs when stable.. . Gris Keith RN documented in this [facility]07-06-2024 Nurse Note* Dariana Lawrence RN - 10/05/2023 2:38 PM EDT Patient discharged at this time. Patient alert and oriented, reviewed discharge instructions with patient and daughter. PIV removed, tele removed. [place] [id number] Nurse Note* Dariana Lawrence RN - 10/05/2023 2:38 PM EDT Patient discharged at this time. Patient alert and oriented, reviewed discharge instructions with patient and daughter. PIV removed, tele removed. * Dalila Helms RN - 10/03/2023 7:30 PM EDT Pt arrived from [facility], ambulated to bed, NIH scale 1, pt A&O x 4, denies numbness ortingling, denies headache or dizziness, denies needs at this time, call light and belongings withinreach, will monitor. documented in this [facility]07-06-2024 NoteDischarge Summary Krunal Leos : [...] a few days ago was admitted to [facility] after he had left facial weakness left hand weakness and was diagnosed with a CVA. 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 Occlusion of the left vertebral artery at the level of the V3 extending beyond the wpfeb-xj-hqoj with reconstitution. Atherosclerosis of the cavernous and [...] sodium chloride, sodium chlor (more content not included)...[facility] 10-05-2023 Hospital course Narrative* Harmeet Stallworth MD [...] a few days ago was admitted to [facility] after he had left facial weakness left hand weakness and was diagnosed with a CVA. 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 Occlusion of the left vertebral artery at the level of the V3 extending beyond the nvpjw-et-jqwh with reconstitution. Atherosclerosis of the cavernous and [...] Complexity: follow up within 7-14 calendar days (94948) [] Severe Complexity: follow up within 7 calendar days (43653) FOLLOW UP TESTING, PENDING RESULTS OR REFERRALS AT TRANSITIONAL CARE VISIT: [] Yes [] No PENDING STUDIES: DISPOSITION: Home FACILITY/HOME CARE AGENCY NAME: Follow up with Suzy Jauregui MD [address] [facility] [address] Call Call your surgeon in 2 days & schedule follow-up, as needed or follow-up for ultrasound survaliance Oziel Culp MD [address] [phone] Schedule an appointment as soon as possible for a visit in 1 week(s) Pamela Morris MD [address] [facility] [address] Schedule an appointment as soon as possible for a visit in 1 week(s) Radha Khan [address] [facility] [phone] Schedule an appointment as soon as possible [...] MD 10/05/2023, 1:36 PM documented in this [facility]07-06-2024 NoteHospitalist Progress Note 10/05/2023 Subjective: Admit Date: 10/03/2023 PCP: RADHA KHAN Room#: W5-539/W3-328 A Brief Hospital course: Krunal Leos is a 58 y.o. male presenting with dizziness over the past 3 years however became more severe and more frequent a few days ago was admitted to [facility] after he had left facial weakness left hand weakness and was diagnosed with a CVA. 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 Occlusion of the left vertebral artery at the level of the V3 extending beyond the qqknl-vj-rabx with reconstitution. Atherosclerosis of the cavernous and [...] not previously counted (eac (more content not included)...[facility]07-06-2024 History of Present illness Narrative* Harmeet Stallworth MD - 10/05/2023 10:16 AM EDT Hospitalist Progress Note 10/05/2023 Subjective: Admit Date: 10/03/2023 PCP: RADHA KHAN Room#: W3-568/W3-940 A Brief Hospital course: Krunal Leos is a 58 y.o. male presenting with dizziness over the past 3 years however became more severe and more frequent a few days ago was admitted to [facility] after he had left facial weakness left hand weakness and was diagnosed with a CVA. 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 Occlusion of the left vertebral artery at the level of the V3 extending beyond the bidrm-vr-sugp with reconstitution. Atherosclerosis of the cavernous and [...] Emergency Contact Information Primary Emergency Contact: Tia Leso Relation: Spouse Preferred language: Burkinan Plastic Panel Installer needed? No Secondary Emergency Contact: Clarisse Chris Mobile Relation: Daughter Preferred language: Burkinan Plastic Panel Installer needed? No Harmeet Stallworth MD Division of Hospitalist Medicine Inpatient Medical Services/[facility] * Brenna Carrion - 10/05/2023 8:22 AM EDT Nutrition rescreen completed. Chart reviewed. Patient to be monitored and followed by the diet brain wave technician. Dietitian available upon request. * Fran Lewis PT - 10/04/2023 9:32 AM EDT Images from the original note were not included. PHYSICAL THERAPY [facility] Initial Evaluation Name/MRN: Krunal Leos ([id number]) Evaluation Date: 10/04/2023 Date of : 1965 Admission Date: 10/03/2023 7:30 PM Age: 58 y.o. Room/Bed: [facility] A Discharge Recommendation: Home independently Equipment Needed: [...] , dtr, son-in-law. Two step entry to [employer]. Pt drives, works at [employer]. Son-in-law mows lawn and often orders groceries [...] of Care supervision is transferred to a [facility] Therapy Services Physical Therapist. Goals and/or treatment plan was established in collaboration with patient/family/other representatives. * Harmeet Stallworth MD - 10/04/2023 8:22 AM EDT Hospitalist Progress Note 10/04/2023 Subjective: Admit Date: 10/03/2023 PCP: RADHA KHAN Room#: W4-435/W4-205 A Brief Hospital course: Krunal Leos is a 58 y.o. male presenting with dizziness over the past 3 years however became more severe and more frequent a few days ago was admitted to [facility] after he had left facial weakness left hand weakness and was diagnosed with a CVA. 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 Occlusion of the left vertebral artery at the level of the V3 extending beyond the xkwwk-vr-fhtn with reconstitution. Atherosclerosis of the cavernous and [...] Contact: Tia Leos Relation: Spouse Preferred language: Burkinan Plastic Panel Installer needed? No Secondary Emergency Contact: Clarisse Chris Mobile Relation: Daughter Preferred language: Burkinan Plastic Panel Installer needed? No Harmeet Stallworth MD Division of Hospitalist Medicine Inpatient Medical Services/[facility] documented in this encounterSLakeHealth TriPoint Medical CenterBninsw92-49-4670 Plan of care note* Care Plan - [...] to address these barriers include reorient frequently. [facility]Avgeoq12-33-7085 Hospital Discharge instructions* Discharge Instructions* Nely Lambert [...] and the need for follow-up with a physician/HOG DRIVER/PA after discharge. NELY LAMBERT RN on 10/04/23 [...] through Care Everywhere. * Recovery After Stroke (Burkinan) * Caring for a Loved One After a Stroke (Burkinan) * Stroke (Burkinan) documented in this [facility]07-05-2024 Note* Care Coordination - Gris Keith RN - 10/04/2023 11:19 AM EDT Care Managment Initial Assessment Date: 10/04/2023 Patient Name: Krunal Leos : 1965 Patient Information Source of Information: Patient Cognition/Language: WFL - Within Functional Limits Permission given to speak with patient event marketing representative/caregiver as indicated: Confirmation of Payer with patient/family: Yes Payer Name: [employer] [place] : No Confirmation of Primary Care Physician: [...] 0 x 3. He was transferred from [facility] with CVA/TIA. Vascular and Neurology have been consulted. Needs carotid US. Anticipate home with no needs when stable.. . Gris Keith RN [facility] [id number] Note* Care Coordination - Gris Keith RN - 10/04/2023 11:19 AM EDT Care Managment Initial Assessment Date: 10/04/2023 Patient Name: Krunal Leos : 1965 Patient Information Source of Information: Patient Cognition/Language: WFL - Within Functional Limits Permission given to speak with patient event marketing representative/caregiver as indicated: Confirmation of Payer with patient/family: Yes Payer Name: [employer] [place]: No Confirmation of Primary Care Physician: Confirmed [...] 0 x 3. He was transferred from [facility] with CVA/TIA. Vascular and Neurology have been consulted. Needs carotid US. Anticipate home with no needs when stable.. . Gris Keith RN [facility]07-05-2024 Consult note* Oziel Culp MD - 10/04/2023 10:09 AM EDTAssociated Order(s): Inpatient consult to Endovascular Neurology-- Inpatient consult to Endovascular Neurology-- Consult performed by: Mey Loya APRN - SLOT FLOORPERSON Consult ordered by: Raphael Stone MD Reason for consult: vertebbral artery occlusion/ stenosis History Of Present Illness Krunal Leos is a 58 y.o. male presenting with left face and hand weakness in setting of chronic dizziness. Pt does have history of atrial fibrillation on Eliquis. 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 Coordination Mffmia-tj-pkto, rapid alternating movements and vltr-eg-cyzt normal bilaterally without dysmetria. Awake and alert [...] Team, ., . Personal review of: Imaging,Labs,ECHO},.},. [place] Phone: 1(600) 176-895607-05-2024 Consult note* Oziel Culp MD - 10/04/2023 10:09 AM EDTAssociated Order(s): Inpatient consult to Endovascular Neurology-- Inpatient consult to Endovascular Neurology-- Consult performed by: Mey Loya, DEJUAN - SLOT FLOORPERSON Consult ordered by: Raphael Stone MD Reason for consult: vertebbral artery occlusion/ stenosis History Of Present Illness Krunal Leos is a 58 y.o. male presenting with left face and hand weakness in setting of chronic dizziness. Pt does have history of atrial fibrillation on Eliquis. 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 Coordination Giogto-ni-ajzy, rapid alternating movements and dwrv-cx-usby normal bilaterally without dysmetria. Awake and alert [...] Name: Krunal Leos Patient : 1965 Acct: [id number] Date of Admission: 10/03/2023 Room/Bed: [facility] A PCP: RADHA KHAN History of Present Ilness: 58 y.o. is man with the chief Complaint of: transferred from [facility] evaluation of severe cerebrovascular disease presenting [...] (Glucotrol) tablet 5 mg, 5 mg, Oral, [facility], Michael Rico MD, 5 mg at 10/04/23554 glucagon (human recombinant) injection 1 mg, 1 [...] Levoxyl) tablet 112 mcg, 112 mcg, Oral, qAM AC, Michael Rico MD, 112mcg at 10/04/23 0555 [...] reflex present -X Palate:intact -XI Shoulder shrug: {INTACT/ABNORMAL:[id number]::intactNormal -XII Tongue movement: Normal Funduscopic Exam: normal, [...] 401 ms QTC Interval 453 ms P [place] 12 degrees QRS [place] -16 degrees T Wave [place] 16 degrees [place] Interval 160 ms POCT glucose meter Collection [...] the left vertebral artery MRI brain from [place] review ASSESSMENT / PLAN / SUGGESTIONS : [...] I have discussed case again with Dr. Cupl who will review the imaging and in [...] of Eliquis last night - follow up [facility] service evaluation - further plans to follow [...] agreeable to the plan. documented in this [facility]07-05-2024 NotePHYSICAL THERAPY [facility] Initial Evaluation Name/MRN: Krunal Leos ([id number]) Evaluation Date: 10/04/2023 Date of : 1965 Admission Date: 10/03/2023 7:30 PM Age: 58 y.o. Room/Bed: [facility] A Discharge Recommendation: Home independently Equipment Needed: [...] , dtr, son-in-law. Two step entry to [employer] home. Pt drives, works at [employer]. Son-in-law mows lawn and often orders groceries [...] Raw Score (No Stairs) : 20 JH-HLM -HLM Score: Walked 250 ft or more (i.e. [...] of Care supervision is transferred to a [facility] Therapy Services Physical Therapist. Goals and/or treatment plan was established in collaboration with patient/family/other representatives.[facility] [id number] Consult note* Pili Connolly MD - 10/04/2023 8:31 AM EDT Associated Order(s): IP CONSULT TO NEUROLOGY; IP CONSULT TO STROKE TEAM Images from the original note were not included. INITIAL CONSULT NOTE. STROKE SERVICE Patient Name: Krunal Leos Patient : 1965 Acct: [id number] Date of Admission: 10/03/2023 Room/Bed: [facility] A PCP: RADHA KHAN History of Present Ilness: 58 y.o. is man with the chief Complaint of: transferred from [facility] evaluation of severe cerebrovascular disease presenting [...] tablet 81 mg, 81 mg, Oral, Daily, Micahel Rico MD atorvastatin (Lipitor) tablet 80 mg, [...] BID, Michael Rico MD, 40 mg at 10/04/23554 glipiZIDE (Glucotrol) tablet 5 mg, 5 mg, Oral, qAM AC, Michael Rico MD, 5 mg at 10/04/23554 glucagon (human recombinant) injection 1 mg, 1 [...] Oral, Michael Leyva MD, 112mcg at 10/04/23 05 metoprolol succinate XL (Toprol-XL) 24 hr tablet [...] reflex present -X Palate:intact -XI Shoulder shrug: {INTACT/ABNORMAL:[id number]::intactNormal -XII Tongue movement: Normal Funduscopic Exam: normal, [...] 401 ms QTC Interval 453 ms P [place] 12 degrees QRS [place] -16 degrees T Wave [place] 16 degrees [place] Interval 160 ms POCT glucose meter Collection [...] the left vertebral artery MRI brain from [place] review ASSESSMENT / PLAN / SUGGESTIONS : [...] to be involved in this patient's care. [employer] Phone: 1(492) 619-489707-05-2024 NoteHospitalist Progress Note 10/04/2023 Subjective: Admit Date: 10/03/2023 PCP: RADHA KHAN Room#: W4-435/W4-435 A Brief Hospital course: Krunal Leos is a 58 y.o. male presenting with dizziness over the past 3 years however became more severe and more frequent a few days ago was admitted to [facility] after he had left facial weakness left hand weakness and was diagnosed with a CVA. 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 Occlusion of the left vertebral artery at the level of the V3 extending beyond the eyavv-zo-nacj with reconstitution. Atherosclerosis of the cavernous and [...] carotids -Neurology consultation -En (more content not included)...[facility]07-05-2024 Consult note * Karol Melissa MD - [...] of Eliquis last night - follow up [facility] evaluation - further plans to follow [...] and he is agreeable to the plan. [facility]Hftofo92-40-0618 History and physical note* Michael Rico MD - 10/03/2023 9:26 PM EDT History Of Present Illness Krunal Leos is a 58 y.o. male presenting with dizziness over the past 3 years however became more severe and more frequent a few days ago was admitted to [facility] after he had left facial weakness left hand weakness and was diagnosed with a CVA. 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 Occlusion of the left vertebral artery at the level of the V3 extending beyond the zzmxi-do-pisn with reconstitution. Atherosclerosis of the cavernous and [...] consultation 3. Continue to monitor glycemic status. [employer] Phone: 1(705) 548-955507-04-2024 NoteHistory Of Present Illness Krunal Leos is a 58 y.o. male presenting with dizziness over the past 3 years however became more severe and more frequent a few days ago was admitted to [facility] after he had left facial weakness left hand weakness and was diagnosed with a CVA. 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 Occlusion of the left vertebral artery at the level of the V3 extending beyond the vddem-kk-ldkm with reconstitution. Atherosclerosis of the cavernous and [...] Neurology consultation 3. Continue to monitor glycemic status.[facility] [id number] History and physical note* Michael Rico MD - 10/03/2023 9:26 PM EDT History Of Present Illness Krunal Leos is a 58 y.o. male presenting with dizziness over the past 3 years however became more severe and more frequent a few days ago was admitted to [facility] after he had left facial weakness left hand weakness and was diagnosed with a CVA. 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 Occlusion of the left vertebral artery at the level of the V3 extending beyond the svoaz-pw-dgpj with reconstitution. Atherosclerosis of the cavernous and [...] to monitor glycemic status. documented in this [facility]07-04-2024 Nurse Note* Dalila Helms RN - 10/03/2023 7:30 PM EDT Pt arrived from [facility], ambulated to bed, NIH scale 1, pt A&O x 4, denies numbness ortingling, denies headache or dizziness, denies needs at this time, call light and belongings community health, will monitor. [facility]Ciwevh72-20-2632 Note Discharge Instructions Thank you for allowing [place] to assist you with your healthcare needs. [...] to receive it can visit one of [facility] vaccine clinics. There are many vaccine clinic locations within the [facility]. For locations and available times, please visit [email or web address].[email or web address] It is important to note that some COVID mobile vaccine clinics are held outdoors and may be canceled in rainy or stormy conditions. To learn more about pediatric vaccinations (ages 5-11), we invite you to visit the [facility] webpage. [email or web address].[email or web address].org/pages/1931-Pahnv-Tsiifmuiumy-Ojubgdqnkr-Genrp-Usc stions.htmlTo learn more about the COVID-19 vaccine, we invite you to visit the CDC website for a list of frequently asked questions.https://www.cdc.gov/coronavirus/2019-ncov/vaccines/faq.html [employer] Patient Portal Access Instructions: Stay connected with your healthcare team and access your personal medical information anytime with the [employer] Patient Portal. Please follow the directions below to create your [employer] account: 1.Access the email account you provided upon registration to the hospital/physician office.2.Look for an invitation email from [facility].3.Open the email and access the invitation link: AcceptInvitation to [employer].4.Fill in the required goldberg to create your account. To access your account, visit [email or web address]. Click the blue button labeled Access Patient [...] who you will allowto register on the [employer] Patient Portal for access to your information. You can also access the [employer] Patient Portal on the [employer] collin. Simply click on Patient Portal and then log into your account. If you would like to receive a full copy of your medical records, please contact the [facility] Medical Records Department by calling [phone], Saturday through Saturday between 8 a.m. and [...] Call your local pharmacy or go to [email or web address] to find one close to you.3.Make use of household items: Use cat litter or old coffee grounds to dispose medications if other options arenot available. Mix your drugs with these household products, seal them in an airtight container andthrow it into the garbage. Call [facility]: [phone] to be sure your drugs can be [...] that I should contact my do ctor. 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07-04-2024 Note Date of Service 10/03/23 Chief Complaint CVA Subjective 58-year-old male with past medical history significant for paroxysmal atrial fibrillation anticoagulated with apixaban, HTN, HLD, type 2 diabetes mellitus, hypothyroidism, KIANNA noncompliant with CPAP,HFpEF, chronic hypoxic respiratory failure, GERD, carotid stenosis, NSTEMI, Hodgkin's disease. Patient presented to [facility] emergency department on 10/01/2023 with increased [...] vertebral artery from the origin to the [id number]. Moderate stenosis of bilateral internal carotid arteries [...] Dobbs, vascular surgeon, who recommended transfer to [facility] for vascular surgery evaluation. [facility] transfer line called. Imaging reports [...] by DOMINIC FLEMING on 10/03/2023 04:[address] [facility]07-03-2024 Note ORIGINAL EXAMINATION: CTA OF THE HEAD [...] Date: 10/03/2023 10:41:06 AM [facility]ing [facility]* Exam Date Time Procedure Performing Provider Status 10/02/23 2:41 PM Echocardiogram, Adul t with Bubble Study- Auth (Verified) [facility] 07-03-2024 Nurse Progress note ABDULLAHI AGUIRRE APRN, CNP CONSULTED STEM FOR NEURO CONSULT 1319. ER REGISTRATION NOTIFIED. Digitally Signed by Nelly Marsh RN on 10/02/2023 01:[address] [facility]07-03-2024 Evaluation + Plan noteExtracted from: Title:History and Physical Author:ABDULLAHI AGUIRRE APRN-SLOT FLOORPERSON Date:10/02/23 1. CVA (cerebrovascular acci dent) Acute, [...] case was discussed with collaborating physician, Dr. eDrrek Cole. 75 minutes spent reviewing past diagnostic tests, reviewing lab results, vital sign trends, medical history, reviewing medications and ordering home medications, examining patient, discussed plan of care with care team, collaborating with physician, and documenting in chart. [facility] 07-03-2024 Nurse Progress note ABDULLAHI AGUIRRE APRN,NAV CONSULTED STEM FOR NEURO CONSULT 1319. ER REGISTRATION NOTIFIED. Digitally Signed by Nelly Marsh RN on 10/02/2023 01:[address] [facility]07-03-2024 Note Date of Service 10/02/2023 Chief Complaint states was at [facility], felt maybe a little weak, siad that [...] diabetes and hypothyroidism, presented to [facility] emergency department with the chief complaint of weakness and possible right facial droop. Patient [facility] and suddenlyfelt a little weak in [...] Result Date: October 01, 2023 Verified By: Contributor_ELAN caban CLINICAL STATEMENT: IMPRESSION: Left lower lobe [...] by ABDULLAHI AGUIRRE on 10/02/2023 12:[address] [facility]07-03-2024 Note ORIGINAL HISTORY: TIA COMPARISON: Head CT [...] Date: 10/02/2023 8:38:30 AM Ordering Provider: [facility]23 Note ADDENDUM ADDENDUM: I agree with [...] Sign Date: 10/01/2023 11:46:49 PM Ordering Provider: [facility]07-02-2024 Note ORIGINAL EXAMINATION: ONE XRAY VIEW OF [...] Sign Date: 10/01/2023 9:13:56 PM Ordering Provider: [facility]07-02-2024 Note Sinus rhythm Atrial premature complexes Left ventricular hypertrophy Inferior infarct, old EKG interpretation is noted and agreed to in [employer]. The interpretation of this patient's EKG contributed directly to the care and management of this patient. Electronic Signature: TITA PARISH DO 10/01/2023 20:51:[address] [place] [address] 12-15-2023 Procedure [facility] 02-18-2023 Procedure [facility]05-05-[address] Ospina [facility] August 03, 2022 10:12am Note Date/Time August 03, 2022 10:12a m [facility] Medical Records Department [address] [place] [id number] Discharge Summary 08/03/22 1011 MR#: [id number] Acct: [id number] Name: KRUNAL LESO Rep #:[id number] : 1965 56 From: Eduin Ospina MD PCP: Dr. Radha Khan MD Status:ADM TALIB Location: [place] [address] Providers Date of Admission: 08/01/22 Date of [...] 81 mg PO DAILY@0800 03/30/20 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 meter,continuous ([facility] G6 Picture Frames Inspector) #1 ea 07/26/20 pen needle, diabetic 31 gauge x 08/14 #1,200 ea 12/22/20 pen needle, diabetic 32 gauge x (BD Ultra-Fine Kiki Pen Needle) #150 ea 06/01/21 atorvastatin 80 mg tablet (Lipitor) 80 mg PO QHS cholesterol 09/04/21 metoprolol succinate 100 mg tablet,extended release 24 hr 100 mg PO DAILY #90 tabs 12/08/21 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 sensor ([facility] G6 Sensor device) #3 ea 12/29/21 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 transmitter ([facility] G6 Transmitter device) #1 ea 12/29/21 amlodipine [...] Referring Physician: Radha Khan Performed By: Bijal Faust RDCS, RVT D/C Instructions Discharge Activity: Return to [...] Discharge Orders/Prescriptions Prescriptions: Continued (DME) Dexcom G6 Picture Frames Inspector Misc See Rx Instructions .ROUTE .MEDSUPPLY Qty: [...] Self Care Charges/Coding Visit Charges Inpatient E&M: 24565 Disch Hosp >30min 08/03/22 1012 <Electronically signed by Eduin Ospina MD> Cosigner Signature (if applicable): CC: Dr. Radha Khan MD; Dr. Eduin Ospina MD~ Signed [facility] Work Phone: 1(189) 397-718605-05-[address] Ospina [facility] May 5th, 2023 10:11am Note Date/Time August 03, 2022 7:37am [facility] Medical Records Department [address] [place] [address] Progress Note - Hospitalist 08/03/22 0737 MR#: [id number] Acct: [id number] Name: KRUNAL LEOS Rep #:[id number] : 1965 56 From: Eduin Ospina MD PCP: Dr. Radha Khan MD Status:ADM TALIB Location: [place] [address] Reason for Visit Reason for Visit: Diagnoses [...] Referring Physician: Radha Khan Performed By: Bijal Faust RDCS, RVT Physical Exam Narrative GENERAL: cooperative HEENT: [...] 40 Minutes Charges/Coding Visit Charges Inpatient E&M: 49321 Subs Hosp L2 08/03/22 1011 <Electronically signed by Eduin Ospina MD> Cosigner Signature (if applicable): CC: ~ Signed [facility] Work Phone: 1(577) 137-575405-04-[address] Ospina [facility] August 02, 2022 10:50am Note Date/Time August 02, 2022 8:30am [facility] Medical Records Department [address] [facility] [place] [address] Progress Note - Hospitalist 08/02/22 0828 MR#: [id number] Acct: [id number] Name: KRUNAL LEOS Rep #:[id number] : 1965 56 From: Eduin Ospina MD PCP: Dr. Radha Khan MD Status:ADM TALIB Location: [place] [address] Reason for Visit Reason for Visit: Diagnoses [...] (Auto) 70.4 H, Lymph % (Auto) 13.4L, [place] % (Auto) 11.7 H, Eos % (Auto) [...] % (Auto) 59.7, Lymph % (Auto) 21.5, [place] % (Auto) 14.4 H, Eos % (Auto) [...] Aparicio MD at 21:16 EDT , ADDENDUM: 08/01/223 IMPRESSION: Moderate to severe atherosclerotic plaquing of [...] 40 Minutes Charges/Coding Visit Charges Inpatient E&M: 02535 Subs Hosp L2 08/02/22 1050 <Electronically signed by Eduin Ospina MD> Cosigner Signature (if applicable): CC: ~ Signed [facility] Work Phone: 1(779) 302-257405-04-2023 History and physical note Author Dr. Bell [facility] August 02, 2022 2:34am Note Date/Time August 01, 2022 10:32p m [facility] Medical Records Department [address] [place] [address] H&P Exam - Hospitalist 08/01/222 MR#: [id number] Acct: [id number] Name: KRUNAL LEOS Rep #:[id number] : 1965 56 From: Cookie Bell MD PCP: Dr. Radha Khan MD Status:ADM TALIB Location: [place] [address] HPI - General General Date of Admission: [...] neuropathy, Hx TIA who presents to the [facility] ED on 08/01/22 with history of ongoing [...] treated with BiPAP TIA (transient ischemic attack) (2018) Vision loss of left eye Vision loss [...] Last Taken 05/09/22] 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 meter,continuous (Dexcom G6 Picture Frames Inspector) #1 ea 07/26/20 [Rx Last Taken Unknown] [...] Verified 08/01/22 19:10 [From Reglan] Family History (Updated 08/02/22 @ 02:29 by [...] (Auto) 70.4 H, Lymph % (Auto) 13.4L, [place] % (Auto) 11.7 H, Eos % (Auto) 3.4, Baso % (Auto) 0.7, Absolute Neuts (auto) 5.2, Absolute Lymphs (auto) 0.99, Nucleated RBC % 0 05/03/23 19:18: PT 13.8, INR 1.1, APTT 28.7 [...] Aparicio MD at 21:16 EDT , ADDENDUM: 08/01/223 IMPRESSION: Moderate to severe atherosclerotic plaquing of [...] neuropathy, Hx TIA who presents to the [facility] ED on 08/01/22 with history of ongoing [...] 75 minutes. Charges/Coding Visit Charges Inpatient E&M: 79196 Init Hosp L3 Procedures Hospitalists Procedures: 63681 Advncd Care Plan 30 Min 08/02/22 0234 <Electronically signed by Cookie Bell MD> Cosigner Signature (if applicable): CC: Dr. Radha Khan MD; Dr. Cookie Bell MD~ Signed [facility] Work Phone: 1(949) 226-305205-04-[address] Hill [facility] August 01, 2022 11:55pm Note Date/Time August 01, 2022 8:08pm [facility] Medical Records Department [address] [place] [address] Emergency Department Summary 08/01/22 MR#: [id number] Acct: [id number] Name: KRUNAL LEOS Rep #:[id number] : 1965 56 From: Nely Hill MD PCP: Dr. Radha Khan MD Status:ADM TALIB Location: [place] [address] HPI History of Present Illness Chief Complaint: [...] equivocal and norecommendation for surgery was made. [facility] Medical History Acute kidney injury Anemia Anxiety [...] mellitus Sleep apnea TIA (transient ischemic attack) (2018) Vision loss of left eye Vision loss [...] Last Taken 05/09/22] 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 meter,continuous (Dexcom G6 Picture Frames Inspector) #1 ea 07/26/20 [Rx Last Taken Unknown] [...] Medical decision making narrative: Patient placed on equal opportunity representative. EKG obtained to evaluate for cardiac arrhythmia/ischemia. [...] 70.4 H Lymph % (Auto) 13.4 L [place] % (Auto) 11.7 H Eos % (Auto) [...] (Auto) Neut % (Auto) Lymph % (Auto) [place] % (Auto) Eos % (Auto) Baso % [...] Sameer Aparicio MD at 21:16 EDT , EKG Initial EKG: Attestation: I personally [...] our attention. I spoke with neurology at [facility]. Given that the patient is already on [...] Vertigo Prescriptions: No Action (DME) Dexcom G6 Picture Frames Inspector Misc See Rx Instructions .ROUTE .MEDSUPPLY Qty: [...] unit/mL insulin pen 25 unit subcut TIDCM Toumanjinder SoloStar U-300 Insulin 300 unit/mL (1.5 mL) [...] Provider] - Disposition Disposition: Acute Care Hospital [facility] What to do if you have Problems For any increased pain, shortness of breath, bleeding, nausea or vomiting, chestpain, or any unexpected problems, contact your Primary Care Provider. Call [facility] ([phone]) or report to the closest Emergency Room. Call 911 if necessary. 08/01/22 3314 <Electronically signed by Nely Hill MD> Cosigner Signature (if applicable): CC: Dr. Radha Khan MD ~ Signed [facility] Work Phone: Evaluation note* Diagnosis Onset [...] heart failure) chronic KIANNA (obstructive sleep apnea) [facility] Work Phone: Evaluation note* Diagnosis Onset [...] (obstructive sleep apnea) chronic Diabetes chronic Obesity [facility] Work Phone: Evaluation note* Diagnosis Onset [...] Paroxysmal atrial fibrillation acute Essential (primary) hypertension [facility] Work Phone: Evaluation note* Diagnosis Onset Date Resolution Status Left carotid bruit acute Paroxysmal atrial fibrillation acute Essential (primary) hypertension chronic Diabetes chronic Essential (primary) hypertension chronic Obesity chronic Dyspnea on exertion acute Chronic diastolic CHF (congestive heart failure) chronic KIANNA (obstructive sleep apnea) chronic Dyspnea on exertion acute Left carotid bruit acute Paroxysmal atrial fibrillation acute Essential (primary) hypertension [facility] Work Phone: Evaluation note* Diagnosis Onset Date Resolution Status Diabetes chronic Essential (primary) hypertension chronic Obesity chronic Dyspnea on exertion acute Chronic diastolic CHF (congestive heart failure) chronic KIANNA (obstructive sleep apnea) chronic Dyspnea on exertion acute Left carotid bruit acute Paroxysmal atrial fibrillation acute Essential (primary) hypertension chronic Diabetes chronic Essential (primary) hypertension chronic Obesity [facility] Work Phone: Evaluation note* Diagnosis Onset [...] Paroxysmal atrial fibrillation acute Essential (primary) hypertension [facility] Work Phone: Evaluation note* Diagnosis Onset [...] apnea) chronic Diabetes chronic Hypothyroidism chronic Obesity [facility] Work Phone: Evaluation note* Diagnosis Onset [...] apnea) chronic Diabetes chronic Hypothyroidism chronic Obesity [facility] Work Phone: Evaluation note* Diagnosis Onset [...] chronic Hypothyroidism chronic Obesity chronic Vertigo acute [facility] Work Phone: Evaluation note* Diagnosis Onset Date Resolution Status Chronic diastolic CHF (congestive heart failure) chronic Chronic respiratory failure with hypoxia chronic Dyspnea on exertion chronic Obesity chronic KIANNA (obstructive sleep apnea) chronic Diabetes chronic Hypothyroidism chronic Obesity chronic Vertigo acute Diabetes chronic Essential (primary) hypertension chronic Insulin pump titration chron ic Obesity chronic Presence of insulin pump chr onic [facility] Work Phone: Evaluation note* Diagnosis Onset Date Resolution Status Vertigo acute Diabetes chronic Essential (primary) hypertension chronic Insulin pump titration chron ic Obesity chronic Presence of insulin pump chr on Carotid stenosis acute Double vision acute Left carotid bruit acute Vertigo acute [facility] Work Phone: Evaluation note* Diagnosis Onset Date Resolution Status Carotid stenosis acute Double vision acute Left carotid bruit acute Vertigo acute Post op infection acute Thyroid nodule acute CKD (chronic kidney disease) chronic Diabetes chronic Hypothyroidism chronic Microalbuminuria chronic Obesity chronic Multiple thyroid nodules acu te [facility] Work Phone: Evaluation note* Diagnosis Onset Date Resolution Status Post op infection acute Thyroid nodule acute CKD (chronic kidney disease) chronic Diabetes chronic Hypothyroidism chronic Microalbuminuria chronic Obesity chronic Multiple thyroid nodules acu te CKD (chronic kidney disease) chronic Diabetes chronic Hypothyroidism chronic Microalbuminuria chronic Neuropathy chronic Obesity [facility] Work Phone: Evaluation note* Diagnosis Onset [...] on exertion chronic Essential (primary) hypertension chronic [facility] Work Phone: Evaluation note* Diagnosis Onset [...] hypertension chronic Multiple thyroid nodules acu te [facility] Work Phone: Evaluation note* Diagnosis Onset [...] nodules acu te Polyneuropathy acute Hyperlipidemia chronic [facility] Work Phone: Evaluation note* Diagnosis Onset [...] cerebrovascular accident (CVA) acute Peripheral vestibulopathy ac [place] Polyneuropathy acute Hyperlipidemia chronic Double vision resolved [facility] Work Phone: Evaluation note* Diagnosis Onset Date Resolution Status CKD (chronic kidney disease) chronic Diabetes chronic Hypothyroidism chronic Microalbuminuria chronic Neuropathy chronic Obesity chronic Left carotid bruit acute Paroxysmal atrial fibrillation acute Dyspnea on exertion chronic Essential (primary) hypertension chronic Multiple thyroid nodules acu te History of TIA (transient ischemic attack) acute Ischemic cerebrovascular accident (CVA) acute Peripheral vestibulopathy ac [place] Polyneuropathy acute Hyperlipidemia chronic Double vision resolved [facility] Work Phone: Evaluation note* Diagnosis Onset Date Resolution Status Left carotid bruit acute Paroxysmal atrial fibrillation acute Dyspnea on exertion chronic Essential (primary) hypertension chronic Multiple thyroid nodules acu te History of TIA (transient ischemic attack) acute Ischemic cerebrovascular accident (CVA) acute Peripheral vestibulopathy ac [place] Polyneuropathy acute Hyperlipidemia chronic Double vision resolved CKD (chronic kidney disease) chronic Diabetes chronic Essential (primary) hypertension chronic Hypothyroidism chronic Neuropathy chronic Obesity chronic Carotid stenosis acute History of TIA (transient ischemic attack) acute Ischemic cerebrovascular accident (CVA) acute Polyneuropathy acute [facility] Work Phone: Evaluation note* Diagnosis Onset Date Resolution Status CKD (chronic kidney disease) chronic Diabetes chronic Essential (primary) hypertension chronic Hypothyroidism chronic Neuropathy chronic Obesity chronic History of TIA (transient ischemic attack) acute Ischemic cerebrovascular accident (CVA) acute Polyneuropathy acute Carotid stenosis chronic Carotid stenosis chronic Carotid stenosis chronic [facility] Work Phone: Evaluation note* Diagnosis Cerebrovascular accident (CVA), unspecified mechanism (HCC)- Primary Cerebrovascular accident (CVA), unspecified mechanism (HCC) documented in this encounter [facility]* Diagnosis Bilateral carotid artery stenosis- Primary Occlusion and stenosis of carotid artery without mention of cerebral infarction Ischemic cerebrovascular accident (CVA) (HCC) documented in this encounter [facility] note* Diagnosis Chronic kidney disease, unspecified CKD stage- Primary documented in this encounter [facility] note* Diagnosis Ischemic cerebrovascular accident (CVA) (HCC)- Primary Bilateral carotid artery stenosis Occlusion and stenosis of carotid artery without mention of cerebral infarction documented in this encounter [facility] note* Diagnosis Bilateral carotid artery occlusion Occlusion and stenosis of carotid artery without mention of cerebral infarction documented [facility] encounter [facility]* Diagnosis Cerebrovascular accident (CVA), unspecified mechanism (HCC)- Primary Bilateral carotid artery stenosis Occlusion and stenosis of carotid artery without mention of cerebral infarction documented in this encounter [facility]* Diagnosis Ischemic cerebrovascular accident (CVA) (HCC) Bilateral carotid artery stenosis Occlusion and stenosis of carotid artery without mention of cerebral infarction documented in this encounter [facility]* Diagnosis Bilateral carotid artery stenosis- Primary Occlusion and stenosis of carotid artery without mention of cerebral infarction documented in this encounter [facility] note* Diagnosis ILD (interstitial lung disease) (Multi)- Primary Postinflammatory pulmonary fibrosis Pulmonary hypertension (Multi) Other chronic pulmonary heart diseases Chronic respiratory failure with hypoxia documented in this encounter [facility] Work Phone: Evaluation note* Diagnosis ILD (interstitial lung disease) (Multi) Postinflammatory pulmonary fibrosis documented in this encounter [facility] Work Phone: Evaluation note* Diagnosis Pulmonary hypertension (Multi) Other chronic pulmonary heart diseases documented in this encounter [facility] Work Phone: Evaluation note* Diagnosis ILD (interstitial lung disease) (Multi) Postinflammatory pulmonary fibrosis documented in this encounter [facility] Work Phone: Evaluation note* Diagnosis ILD (interstitial lung disease) (Multi)- Primary Postinflammatory pulmonary fibrosis Chronic respiratory failure with hypoxia KIANNA (obstructive sleep apnea) Obstructive sleep apnea (adult) (pediatric) BMI 40.0-44.9, adult (Multi) Diastolic heart failure, unspecified HF chronicity documented in this encounter [facility] Work Phone: Evaluation note* Diagnosis ILD (interstitial lung disease) (Multi) Postinflammatory pulmonary fibrosis documented in this encounter [facility] Work Phone: Evaluation note* Diagnosis ILD (interstitial lung disease) (Multi)- Primary Postinflammatory pulmonary fibrosis Chronic respiratory failure with hypoxia KIANNA (obstructive sleep apnea) Obstructive sleep apnea (adult) (pediatric) BMI 40.0-44.9, adult (Multi) Diastolic heart failure, unspecified HF chronicity documented in this encounter [facility] Work Phone: Evaluation note* Diagnosis ILD (interstitial lung disease) (Multi) Postinflammatory pulmonary fibrosis documented in this encounter [facility] Work Phone: History of Present illness Narrative* Rosalino Padron MD - 08/28/2024 1:00 PM EDT Images from the original note were not included. Department of Medicine Division of Pulmonary, Critical Care, and Sleep Medicine Consultation [address] Pulmonary Clinic/[facility] Patient was referred by his PCP [...] Left video-assistedthoracoscopic surgery total pulmonary decortication in 2016 at [facility]. He was hospitalized in [place] from 03/02-03/04/2024 for acute hypoxic respiratory failure. [...] Review Audit Reviewed by Heavenly Sparks MA ([employer]) on 08/28/24 at 1158 Medication Order Taking? Sig Documenting Provider Last Dose Status albuterol 90 mcg/actuation inhaler [id number] INHALE 2 PUFFS BY MOUTH EVERY 4 HOURS NEEDED FOR SHORTNESS OF BREATH OR WHEEZING Historical ProviderMD Active amLODIPine (Norvasc) 5 mg tablet [id number] Take 1 tablet (5 mg) by mouth once daily. Historical ProviderMD Active aspirin 325 mg tablet [id number] Take 1 tablet (325 mg) by mouth once daily. Historical ProviderLORNActive atorvastatin (Lipitor) 80 mg tablet [id number] Take 1 tablet (80 mg) by mouth once daily at bedtime.Historical ProviderMD Active betamethasone, augmented, (Diprolene) 0.05 % lotion [id number] APPLY TO RASH ON THE TRUNK OR SCALP 1-2 TIMES DAILY NEEDED Historical ProviderMD Active bismuth subsalicylate (Pepto Bismol) 262 mg chewable tablet [id number] CHEW AND SWALLOW 2 TABLETS BYMOUTH 3 TIMES A DAY for 2 weeks. max 16 tablets per 24 hours Patient not taking: Reported on 08/07/2024 Historical ProviderMD Active Brilinta 90 mg tablet [id number] 1 tablet (90 mg). Historical ProviderMD Active busPIRone (Buspar) 10 mg tablet [id number] Take 1 tablet (10 mg) by mouth 3 times a day. Historical ProviderMD Active clopidogrel (Plavix) 75 mg tablet [id number] Take 1 tablet (75 mg) by mouth early in the morning.. Historical ProviderMD Active dapagliflozin propanediol (Farxiga) 5 mg [id number] Take 1 tablet (5 mg) by mouth once daily. Gloria Rahman MD Active Dexcom G6 Sensor device [id number] USE DIRECTED FOR CONTINUOUS BLOOD GLUCOSE MONITORING, CHANGE SENSOR EVERY 10 DAYS Historical MD Lacey Active DULoxetine (Cymbalta) [address] capsule [id number] Take 1 capsule (60 mg) by mouth once daily. Gloria Rahman MD Active Eliquis 5 mg tablet [id number] Take 1 tablet (5 mg) by mouth 2 times a day. Historical ProviderMD Active ergocalciferol (Vitamin D-2) 1250 mcg (50,000 units) capsule [id number] Take 1 capsule (1,250 mcg) by mouth. Historical ProviderMD Active fenofibrate (Tricor) 54 mg tablet [id number] Take 1 tablet (54 mg) by mouth once daily. Historical MD Lacey Active furosemide (Lasix) 40 mg tablet [id number] Take 1 tablet (40 mg) by mouth. Historical ProviderMD Active glimepiride (Amaryl) 4 mg tablet [id number] Take 1 tablet (4 mg) by mouth early in the morning.. Patient not taking: Reported on 08/07/2024 Gloria Rahman MD Active glipiZIDE (Glucotrol) 5 mg tablet [id number] Take 1 tablet (5 mg) by mouth. Patient not taking: Reported on 08/07/2024 Gloria Rahman MD Active HumuLIN R U-500, Conc, Insulin 500 unit/mL CONCENTRATED injection [id number] INJECT 75 UNITS DAILY VIA CONTINUOUS SUBCUTANEOUS INFUSION. DISCARD VIAL AFTER 40 DAYS Patient not taking: Reported on 08/07/2024 Gloria Rahman MD Active Jardiance 25 mg [id number] Take 1 tablet (25 mg) by mouth once daily. Gloria ProviderMD Active levothyroxine (Synthroid, Levoxyl) 112 mcg tablet [id number] Take 1 tablet (112 mcg) by mouth once daily. Gloria Rahman MD Active lisinopril 40 mg tablet [id number] Take 1 tablet (40 mg) by mouth once daily. Gloria Rahman MD Active metFORMIN (Glucophage) 500 mg tablet [id number] Take 1 tablet (500 mg) by mouth 2 times daily (morning and late afternoon). Historical ProviderMD Active metoprolol succinate XL (Toprol-XL) 100 mg 24 hr tablet [id number] TAKE 1 TABLET BY MOUTH DAILY for heart Historical ProviderMD Active Mucinex DM 60-1,200 mg tablet extended release 12 hr [id number] Take 1 tablet by mouth every 12 hours. Gloria Rahman MD Active oxyCODONE-acetaminophen (Percocet) 5-325 mg tablet [id number] Take 1 tablet by mouth 2 times a day as needed. Patient not taking: Reported on 08/07/2024 Gloria Rahman MD Active pantoprazole (ProtoNix) 40 mg EC tablet [id number] Take 1 tablet (40 mg) by mouth. Historical ProviderMD Active potassium citrate CR (Urocit-K-10) 10 mEq ER tablet [id number] Take 1 tablet (10 mEq) by mouth twicea day. Historical ProviderMD Active predniSONE (Deltasone) 20 mg tablet [id number] Take 0.5 tablets (10 mg) by mouth early in the morning.. Historical ProviderMD Active predniSONE (Deltasone) 20 mg tablet [id number] Take 2 tablets (40 mg) by mouth once daily. Patient not taking: Reported on 08/07/2024 Rosalino Padron MD Active predniSONE (Deltasone) 5 mg tablet [id number] Take 4 tablets (20 mg) by mouth once daily for 30 days, THEN 3 tablets (15 mg) once daily for 30 days, THEN 2 tablets (10 mg) once daily for 30 days, THEN1 tablet (5 mg) once daily for 14 days. Rosalino Padron MD Active spironolactone (Aldactone) 50 mg tablet [id number] Take 1 tablet (50 mg) by mouth once daily. Patient not taking: Reported on 08/07/2024 Gloria Rahman MD Active tamsulosin (Flomax) 0.4 mg 24 hr capsule [id number] Take 1 capsule (0.4 mg) by mouth once daily. Gloria ProviderMD Active traMADol (Ultram) 50 mg tablet [id number] Take 1 tablet (50 mg) by mouth. [...] Rosalino Padron MD 08/28/2024 documented in this [facility] Work Phone: Hospital course Narrative No data available for this section [facility] Hospital Discharge instructions No data available for this section [facility] Hospital Discharge instructions* Attachments The following attachments cannot be sent through Care Everywhere. * Arteriogram Discharge Instructions ([place]) [facility] Attachments The following attachments cannot be sent through Care Everywhere. * Risk Factors for Stroke ([place]) * Stroke ([place]kinan) * Carotid Artery Disease ([place]) documented in this [facility]* Patient Instructions* Rosalino Padron MD - [...] a breathing or a walking test Call [phone] to schedule EKG's, Echocardiograms and Cardiopulmonary Stress Tests. Call [phone] to schedule Radiology tests such as Nuclear Medicine Stress Tests, CT Scans, and MRI's. Should you have any questions Please Call our pulmonary nurse Linda Marie at [phone] or my bilingual legal assistant Puneet Leone at [phone] documented in this [facility] Work Phone: Reason for referral (narrative)No reason for referral information availableWSt. [facility] Work Phone: Reason for visit Narrative* Imaging (Routine) - Closed Specialty Diagnoses / Procedures Referred By Contac t Referred To Contact Radiology Diagnoses Bilateral carotid artery stenosis Ischemic cerebrovascular accident (CVA) (HCC) Procedures CTA head neck angio w and wo IV contrast Oziel Culp MD [address] [place] [address] Phone: tel: fax: Referral ID Status Reason Start Date Expiration Date Visits Re quested Visits Authorized [id number] Closed 01/06/2024 01/05/2025 1 1 [facility] [email or web address] for visit Narrative* Imaging (Routine) - Closed Specialty Diagnoses / Procedures Referred By Contac t Referred To Contact Cardiology Diagnoses Bilateral carotid artery occlusion Procedures Vascular US carotid artery duplex bilateral Suzy Jauregui MD [address] [place] [address] Phone: tel: fax: Referral ID Status Reason Start Date Expiration Date Visits Re quested Visits Authorized [id number] Closed 10/15/2023 10/14/2024 [facility] ([facility]ine) - Closed Specialty Diagnoses / Procedures Referred By Contac t Referred To Contact Radiology Diagnoses Ischemic cerebrovascular accident (CVA) (HCC) Bilateral carotid artery stenosis Procedures IR angiogram cerebral with possible intervention Mey Loya, [employer] ASSEMBL[employer] - [employer] [address] [address] Phone: tel: fax: Referral ID Status Reason Start Date Expiration Date Visits Re quested Visits Authorized [id number] Closed 02/13/2024 02/12/2025 1 1 [facility] for visit Narrative* Imaging (Routine) - Authorized Specialty Diagnoses / Procedures Referred By Contac t Referred To Contact Radiology Diagnoses ILD (interstitial lung disease) (Multi) Procedures [place] [address] [place] [id number] Phone: tel: fax: Referral ID Status Reason Start Date Expiration Date Visits Requested Visits Authorized [id number] Authorized Perform Procedure 06/26/2024 06/26/2025 1 1 [facility] Work Phone: reason for visit Narrative* CV Imaging (Routine) - Authorized Specialty Diagnoses / Procedures Referred By Contac t Referred To Contact Cardiology Diagnoses Pulmonary hypertension (Multi) Procedures Transthoracic Echo (TTE) Complete [place] ECHO TTHRC R-T 2D W/WOM-MODE COMPL SPEC&[place] [address] [place] [address] Phone: tel: fax: Referral ID Status Reason Start Date Expiration Date Visits Requested Visits Authorized [id number] Authorized Perform Procedure 06/26/2024 06/26/2025 1 1 [facility] Work Phone: reason for visit Narrative* PFT (Routine) - Pending Review Specialty Diagnoses / Procedures Referred By Contac t Referred To Contact Diagnoses ILD (interstitial lung disease) (Multi) Procedures Pulmonary Stress Test (6 Min. Walk) [place] [address] [place] [address] Phone: tel: fax: Referral ID Status Reason Start Date Expiration Date V isits Requested Visits Authorized [id number] Pending Review 06/26/2024 06/26/2025 1 1 [facility] Work Phone: reason for visit Narrative* PFT (Routine) - Pending Review Specialty Diagnoses / Procedures Referred By Contac t Referred To Contact Diagnoses ILD (interstitial lung disease) (Multi) Procedures Complete Pulmonary Function Test (Spirometry/DLCO/Lung Volumes) Rosalino Padron MD [id number] [place] [address] Phone: tel: fax: Referral ID Status Reason Start Date Expiration Date V isits Requested Visits Authorized [id number] Pending Review 06/26/2024 06/26/2025 1 1 [facility] Work Phone: reason for visit Narrative* PFT (Routine) - Pending Review Specialty Diagnoses / Procedures Referred By Contac t Referred To Contact Diagnoses ILD (interstitial lung disease) (Multi) Procedures Spirometry Pre/Post Bronchodilator Rosalino Padron MD [id number] [place] [address] Phone: tel: fax: Referral ID Status Reason Start Date Expiration Date V isits Requested Visits Authorized [id number] Pending Review 08/07/2024 08/07/2025 1 1 [facility] Work Phone: reason for visit Narrative* PFT (Routine) - Pending Review Specialty Diagnoses / Procedures Referred By Contac t Referred To Contact Diagnoses ILD (interstitial lung disease) (Multi) Procedures Pulmonary Stress Test (6 Min. Walk) Rosalino Padron [place] [id number] [place] [address] Phone: tel: fax: Referral ID Status Reason Start Date Expiration Date V isits Requested Visits Authorized [id number] Pending Review 08/07/2024 08/07/2025 1 1 [facility] Work Phone: reason for visit Narrative* PFT (Routine) - Pending Review Specialty Diagnoses / Procedures Referred By Contac t Referred To Contact Diagnoses ILD (interstitial lung disease) (Multi) Procedures DLCO / [place] [address] [place] [address] Phone: tel: fax: Referral ID Status Reason Start Date Expiration Date V isits Requested Visits Authorized [id number] Pending Review 08/07/2024 08/07/2025 1 1 [facility] Work Phone: reason for visit Narrative* Endoscopy (Routine) - Authorized Specialty Diagnoses / Procedures Referred By Contac t Referred To Contact Gastroenterology Diagnoses ILD (interstitial lung disease) (Multi) Procedures Bronchoscopy Tier 2; w BAL, [place] [address] [place] [address] Phone: tel: fax: Referral ID Status Reason Start Date Expiration Date V isits Requested Visits Authorized [id number] Authorized 08/11/2024 08/11/2025 1 1 [facility] Work Phone: Summary Purpose Family History Relationship Condition Age at Onset Recorded Date/T edgar Not Specified Diabetes mellitus Unknown Alcohol abuse Unknown Arthritis Unknown Cerebrovascular accident (CVA) Unknown Unknown brother Cardiac disease Unknown Relationship Condition Age at Onset Recorded Date/T edgar Not Specified Alcohol abuse Unknown Unknown brother Cardiac disease Unknown mother Cerebrovascular accident (CVA) Unknown Hypertension Unknown Rheumatoid arthritis Unknown father Diabetes mellitus Unknown Advance Directives Documents on File Type Date Recorded Patient Stitch Marker Expl anation Advance Directive(s) 08/19/2015 12:10 PM Advance Directive(s) 09/10/2015 4:56 PM Advance Directive Response Recorded Date/ Time Name of Medical Power of Form Block Maker Tia Leos/segundo awais June 19, 2021 11:06am Advance Directives Yes September 08 3:58am Living Will No July 16, 2021 2:23pm Power of Form Block Maker No July 16 2:23pm Advance Directive Response Recorded Date/ Time Name of Medical Power of Form Block Maker Tia Glasgo/w awais June 19, 2021 11:06am Advance Directives Yes September 08 3:58am Living Will Yes September 04, 2021 6 :29am Power of Form Block Maker Yes September 04, 2021 6:29am Advance Directive Response Recorded Date/ Time Name of Medical Power of Form Block Maker Tia Glasgo/w awais June 19, 2021 11:06am Name of Medical Power of Form Block Maker tia glasgo September 04, 2021 6:29am Advance Directives Yes September 08 3:58am Living Will Yes September 04, 2021 6 :29am Power of Form Block Maker Yes September 04, 2021 6:29am Advance Directive Response Recorded Date/ Time Advance Directives Yes September 08 2:58am Living Will Yes September 04, 2021 5 :29am Power of Form Block Maker Yes September 04, 2021 5:29am Advance Directive Response Recorded Date/ Time Advance Directives on File Yes 2022 8:42am Name of Medical Power of Form Block Maker Tia () May 09, 2022 8:42am Advance Directives Yes May 09, 2022 8:42am Living Will Yes May 09 8:42am Power of Form Block Maker Yes May 09, 2022 8:42am Advance Directive Response Recorded Date/ Time Advance Directives on File Yes 2022 9:42am Name of Medical Power of Form Block Maker Tia () May 09, 2022 9:42am Advance Directives Yes May 09, 2022 9:42am Living Will Yes May 09 9:42am Power of Form Block Maker Yes May 09, 2022 9:42am Advance Directive Response Recorded Date/ Time Advance Directives on File Yes 2022 9:42am Name of Medical Power of Form Block Maker Tia () May 09, 2022 9:42am Name of Medical Power of Form Block Maker tia [email or web address]-3 [phone] August 02, 2022 12:47am Advance Directives Yes May 09, 2022 9:42am Living Will Yes August 02, 2022 12 :47am Power of Form Block Maker Yes August 02, 2022 12:47am Advance Directive Response Recorded Date/ Time Name of Medical Power of Form Block Maker tia Evangelista-Carmen [phone] August 02, 2022 12:47am Advance Directives Yes May 09, 2022 9:42am Living Will Yes August 02, 2022 12 :47am Power of Form Block Maker Yes August 02, 2022 12:47am Advance Directive Response Recorded Date/ Time Advance Directives Yes May 09, 2022 9:42am Living Will Yes August 02, 2022 12 :47am Power of Form Block Maker Yes August 02, 2022 12:47am Advance Directive Response Recorded Date/ Time Name of Medical Power of Form Block Maker TIA February 14, 2023 9:43am Advance Directives Yes May 09, 2022 8:42am Living Will Yes February 14 023 9:43am Power of Form Block Maker Yes February 14, 2023 9:43am Advance Directive Response Recorded Date/ Time Name of Medical Power of Form Block Maker TIA February 14, 2023 10:43am Advance Directives Yes May 09, 2022 9:42am Living Will Yes February 14 023 10:43am Power of Form Block Maker Yes February 14, 2023 10:43am Advance Directive Response Recorded Date/ Time Advance Directives Yes May 09, 2022 9:42am Living Will Yes February 14 10:43am Power of Form Block Maker Yes February 14, 2023 10:43am Documents on File Type Date Recorded Patient Stitch Marker Expl anation DNR (Do Not Resuscitate) 10/03/2023 8:09 PM Date Activated Date Inactivated Comments 10/03/2023 9:41 PM 10/05/2023 5:06 PM Documents on File Type Date Recorded Patient Stitch Marker Expl anation DNR (Do Not Resuscitate) 10/03/2023 8:09 PM Date Activated Date Inactivated Comments 10/03/2023 9:41 PM 10/05/2023 5:06 PM Advance Directive Response Recorded Date/ Time Living Will Yes February 14 023 10:43am Do you have a Healthcare Power of Form Block Maker? Yes February 14, 2023 10:43am Living Will Yes November 15 11:41am Do you have a Healthcare Power of Form Block Maker? Yes November 16, 2023 11:41am Living Will Yes January 20 4:34am Do you have a Healthcare Power of Form Block Maker? Yes January 21, 2024 4:34am Advance Directives Yes April 30, 2024 10:06am Living Will Yes April 12 3:26pm Do you have a Healthcare Power of Form Block Maker? Yes April 12, 2024 3:26pm Name of Medical Power of Form Block Maker - TIA April 12, 2024 3:26pm Living Will Yes April 24 10:37pm Do you have a Healthcare Power of Form Block Maker? Yes April 24, 2024 10:37pm Name of Medical Power of Form Block Maker tia April 24, 2024 10:37pm Advance Directive Response Recorded Date/ Time Living Will Yes February 14 10:43am Do you have a Healthcare Power of Form Block Maker? Yes February 14, 2023 10:43am Living Will Yes November 15 11:41am Do you have a Healthcare Power of Form Block Maker? Yes November 16, 2023 11:41am Living Will Yes January 20 4:34am Do you have a Healthcare Power of Form Block Maker? Yes January 21, 2024 4:34am Advance Directives Yes April 30, 2024 10:06am Living Will Yes April 24 10:37pm Do you have a Healthcare Power of Form Block Maker? Yes April 24, 2024 10:37pm Name of Medical Power of Form Block Maker tia April 24, 2024 10:37pm Advance Directive Response Recorded Date/ Time Living Will Yes February 14 10:43am Do you have a Healthcare Power of Form Block Maker? Yes February 14, 2023 10:43am Living Will Yes January 20 4:34am Do you have a Healthcare Power of Form Block Maker? Yes January 21, 2024 4:34am Advance Directives Yes April 30, 2024 10:06am Living Will Yes April 24 10:37pm Do you have a Healthcare Power of Form Block Maker? Yes April 24, 2024 10:37pm Name of Medical Power of Form Block Maker tia April 24, 2024 10:37pm Advance Directive Response Recorded Date/ Time Advance Directives Yes April 30, 2024 10:06am Advance Directive Response Recorded Date/ Time Do you have a Healthcare Power of Form Block Maker? Yes September 26, 2024 3:39pm Advance Directives Yes April 30, 2024 10:06am Chief Complaint and Reason for Visit Chief Complaint 4 M FU UNSTABLE ANGINA, SOB UNSTABLE ANGINA, SOB UNSTABLE ANGINA, SOB UNSTABLE ANGINA, SOB UNSTABLE ANGINA, SOB HYPOXIA HYPOXIA HYPOXIA 1 M FU [address] fu Shortness of breath dizziness Reason for [...] ANGINA, SOB HYPOXIA HYPOXIA HYPOXIA 1 M [address] fu Shortness of breath dizziness KIANNA; [...] ANGINA, SOB HYPOXIA HYPOXIA HYPOXIA 1 M [address] fu Shortness of breath dizziness KIANNA; [...] HYPOXIA HYPOXIA HYPOXIA 1 M FU [address] fu Shortness of breath dizziness KIANNA; LM 5 & 08/07 6 wk FU CP, PROB [...] HYPOXIA HYPOXIA 1 M FU 9 m fu/[address] [place] [address] fu Shortness of breath dizziness KIANNA; LM 08/04 & 08/07 6 wk FU CP, PROB ACS CP, PROB ACS SOB S/P [facility] ER DYSPNEA Reason for Visit Diabetes Essential [...] XRAY CAROTID DUPLEX TEST 7 CERVICAL RADICULOPATHY LAB AND CHEST XRAY ABNORMAL FINDINGS OF BLOOD CHEMISTRY Reason for Visit Vertigo Diabetes Essential (primary) hypertension Insulin pump titration Obesity Presence of insulin pump Carotid stenosis Double vision Left carotid bruit Vertigo Chief Complaint CAROTID STENOSIS XRAY CAROTID DUPLEX TEST 7 CERVICAL RADICULOPATHY LAB AND CHEST XRAY ABNORMAL [...] Polyneuropathy Chief Complaint HR 130 today per Starriser Watch E-ORDER LEFT CAROTID BRUIT 3 M [...] per JR May 21, 2024 10:41am ALFORD DAMAGE APPRAISER TO READ May 28, 2024 7:06am 30 DAY MONITOR May 28, 2024 9:00am unable to tolerate cpap, new oxygen requ irement June 02, 2024 7:43pm B12 inject June 04, 2024 1:20 pm 8-10 WK F/U June 10, 2024 12: 44pm B12 inject July 06, 2024 1:22 pm B12 inject August 06, 2024 2:27pm EKG (DAMAGE APPRAISER) August 12, 2024 11:03 am EORDERS August 12, 2024 11:27 am Reason for Visit Admit Date Chronic respiratory failure with hypoxia April 12, 2024 1:25pm Acute hypoxemic respiratory failure Ash schmidt 2024 1:25pm CHF (congestive heart failure) April [id number] 1:25pm CKD (chronic kidney disease) April 9:21am Diabetes April 16, 2024 9 :21am Essential (primary) hypertension April 16, 2024 9:21am Hypothyroidism April 16, 2024 9 :21am Insulin pump titration April 16 9:21am Obesity April 16, 2024 9 :21am Presence of insulin pump April 16, 2 025 9:21am Interstitial lung disease April 22, [...] per JR May 21, 2024 10:41am ALFORD DAMAGE APPRAISER TO READ May 28, 2024 7:06am 30 DAY MONITOR May 28, 2024 9:00am unable to tolerate cpap, new oxygen requ irement June 02, 2024 7:43pm B12 inject June 04, 2024 1:20 pm 8-10 WK F/U June 10, 2024 12: 44pm B12 inject July 06, 2024 1:22 pm B12 inject August 06, 2024 2:27pm EKG (DAMAGE APPRAISER) August 12, 2024 11:03 am EORDERS August [...] note per May 21, 2024 10:41am ALFORD DAMAGE APPRAISER TO READ May 28, 2024 7:06am 30 DAY MONITOR May 28, 2024 9:00am unable to tolerate cpap, new oxygen requ irement June 02, 2024 7:43pm B12 inject June 04, 2024 1:20 pm 8-10 WK F/U June 10, 2024 12: 44pm B12 inject July 06, 2024 1:22 pm B12 inject August 06, 2024 2:27pm EKG (DAMAGE APPRAISER) August 12, 2024 11:03 am EORDERS August [...] apnea) May 12:44pm Rheumatoid factor positive June 10 025 12:44pm Fatigue July 06, 2024 1:22 pm Fatigue August 06, 2024 2:27pm Hyperlipidemia August 17, 2024 11:16 am Chief Complaint Admit Date See clinical note per JR May 21, 2024 10:41am ALFORD DAMAGE APPRAISER TO READ May 28, 2024 7:06am 30 DAY MONITOR May 28, 2024 9:00am unable to tolerate cpap, new oxygen requ irement June 02, 2024 7:43pm B12 inject June 04, 2024 1:20 pm 8-10 WK F/U June 10, 2024 12: 44pm B12 inject July 06, 2024 1:22 pm B12 inject August 06, 2024 2:27pm EKG (DAMAGE APPRAISER) August 12, 2024 11:03 am EORDERS August [...] Complaint Admit Date See clinical note per JR May 21, 2024 10:41am ALFORD DAMAGE APPRAISER TO READ May 28, 2024 7:06am 30 DAY MONITOR May 28, 2024 9:00am unable to tolerate cpap, new oxygen requ irement June 02, 2024 7:43pm B12 inject June 04, 2024 1:20 pm 8-10 WK F/U June 10, 2024 12: 44pm B12 inject July 06, 2024 1:22 pm B12 inject August 06, 2024 2:27pm EKG (DAMAGE APPRAISER) August 12, 2024 11:03 am EORDERS August 12, 2024 11:27 am 6 M FU August 17, 2024 11:16 am B12 inject September 15, 2024 12:5 3pm 5 M FU September 16, 2024 9:59 am Chief Complaint Admit Date unable to tolerate cpap, new oxygen requ irement June 02, 2024 7:43pm B12 inject June 04, 2024 1:20 pm 8-10 WK F/U June 10, 2024 12: 44pm B12 inject July 06, 2024 1:22 pm B12 inject August 06, 2024 2:27pm EKG (DAMAGE APPRAISER) August 12, 2024 11:03 am EORDERS August 12, 2024 11:27 am 6 M FU August 17, 2024 11:16 am B12 inject September 15, 2024 12:5 3pm 5 M FU September 16, 2024 9:59 am CVA September 26, 2024 5:17 pm Reason for Visit Admit Date Fatigue June 04, 2024 1:20 pm Interstitial [...] am Fatigue September 15, 2024 12:5 3pm Hyperlipidemia September 16, 2024 9:59 am CKD (chronic kidney disease) September 16, 2024 9:59am Diabetes September 16, 2024 9:59 am Essential (primary) hypertension September 162024 9:59am Hypothyroidism September 16, 2024 9:59 am Insulin pump titration September 16, 2024 9 :59am Microalbuminuria due to type 2 diabetes mellitus September 16, 2024 9:59am Obesity September 16, 2024 9:59 am Presence of insulin pump September 16, 2024 9:59am Acute CVA (cerebrovascular accident) Aug 5:17pm Hyperlipidemia September 26, 2024 5:17 pm Interstitial lung disease September 26 5:17pm Renal insufficiency September 26, 2024 5:17 pm 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 with hyperglyce garrick September 26, 2024 5:17pm Essential (primary) hypertension September [id number] 5:17pm Hypothyroidism September 26, 2024 5:17 pm Obesity September 26, 2024 5:17 pm KIANNA (obstructive sleep apnea) September 26, 2024 5:17pm Reason for Referral Specialty Diagnoses / Procedures Referred By Contac t Referred To Contact Radiology Diagnoses Bilateral carotid artery stenosis Ischemic cerebrovascular accident (CVA) (HCC) Procedures CTA head neck angio w and wo IV contrast Oziel Culp MD [address] [place] [address] Referral ID Status Reason Start Date Expiration Date V isits Requested Visits Authorized [id number] Pending Review 01/06/2024 01/05/2025 1 1 Specialty Diagnoses / Procedures Referred By Contac t Referred To Contact Diagnoses Cerebrovascular accident (CVA), unspecified mechanism (HCC) Harmeet Stallworth MD [address] [place] [address] Referral ID Status Reason Start Date Expiration Date Visits Re quested Visits Authorized [id number] Closed 1 1 Additional Source Comments (unrecognized sect ion and content) No Status Records FoundNo Status Records FoundNo Status Records FoundNo Status Records FoundNo Status Records FoundNo Status Records FoundNo Status Records FoundNo Status Records FoundNo Status Records Found INFORMATION SOURCE (unrecogn ized section and content) DATE CREATED AUTHOR 09/08/2018 [facility] ([place]) DATE CREATED AUTHOR AUTHOR'S ORGANIZ ATION 10/18/2023 [facility] [place]) DATE CREATED AUTHOR AUTHOR'S ORGANIZ ATION 06/13/2024 [facility] DATE CREATED AUTHOR AUTHOR'S ORGANIZ ATION 07/25/2024 [facility] DATE CREATED AUTHOR AUTHOR'S ORGANIZ ATION 07/26/2024 [facility] DATE CREATED AUTHOR AUTHOR'S ORGANIZ ATION 08/08/2024 [facility] DATE CREATED AUTHOR AUTHOR'S ORGANIZ ATION 09/18/2024 [facility] DATE CREATED AUTHOR AUTHOR'S ORGANIZ ATION 09/25/2024 [facility] DATE CREATED AUTHOR AUTHOR'S ORGANIZ ATION 09/26/2024 [facility] Source Comments (unrecognize d section and content) In the event this informatio n is protected by the Federal Confidentiality of Alcohol and Drug Abuse Patient Records regulations: The Federal rules restrict any use of the information to criminally investigate or prosecute any alcohol or drug abuse patient.[facility] Goals (unrecognized section and content) Goals [...] Care Provider, Referrin g Provider Active Dr. Jonathon Salas MD Attending Provider Active Team Status: Inactive Member Role Status Dates Dr. Radha Khan MD Primary Care Provider, Referrin g Provider Active Coreen Gerardo NP-Surinder Attending Provider Active Team Status: Inactive Member Role Status Dates Dr. Radha Khan MD Primary Care Provider, Referrin g Provider Active Oren Sky ENERGY ADVISOR, ENERGY ADVISOR-C Attending Provider Active Team Status: Active Member [...] Provider, Other Pr ovider Active Oren Sky ENERGY ADVISOR, ENERGY ADVISOR-C Attending Provider, Referring Pro vider Active Team [...] Referrin g Provider Active Fior Vallejo NP, ENERGY ADVISOR-C Attending Provider Active Team Status: Inactive Member [...] Radha Khan MD Primary Care Provider Active JING PhanC Attending Provider, Referring Pr ovider Active Team [...] Care Provider, Referrin g Provider Active Dr. Francios Valiente MD Attending Provider Active Team Status: [...] Lydia Segura PA, PA Active Oren Sky ENERGY ADVISOR, ENERGY ADVISOR-C Attending Provider Active Team Status: Active Member [...] MD Primary Care Provider Active Oren Sky ENERGY ADVISOR, ENERGY ADVISOR-C Attending Provider, Referring Pro vider Active Team Status: Inactive Member Role Status Dates Dr. Radha Khan MD Primary Care Provider, Referrin g Provider Active Dr. Ochoa Dobbs MD Attending Provider Active [employer] Relationship Specialty Start Date End Date Radha Khan [address] [place] [address] PCP - General Family Medicine 10/03/23 [employer] Relationship Specialty Start Date End Date Radha Khan [address] [place] [address] PCP - General Family Medicine 10/03/23 [employer] Relationship Specialty Start Date End Date Radha Khan [address] [place] [address] PCP - General Family Medicine 10/03/23 [employer] Relationship Specialty Start Date End Date Radha Khan [address] [place] [address] PCP - General Family Medicine 10/03/23 [employer] Relationship Specialty Start Date End Date Radha Khan [address] [place] [address] PCP - General Family Medicine 10/03/23 [employer] Relationship Specialty Start Date End Date Radha Khan [address] [place] [address] PCP - General Family Medicine 10/03/23 [employer] Relationship Specialty Start Date End Date Radha Khan [address] [place] [address] PCP - General Family Medicine 10/03/23 [employer] Relationship Specialty Start Date End Date Radha Khan [address] [place] [address] PCP - General Family Medicine 10/03/23 Suzy Jauregui MD [address] [facility] [address] [place] [address] [phone] Consulting Physician Vascular Surgery 04/24/24 [employer] Relationship Specialty Start Date End Date Radha Khan [address] [place] [address] PCP - General Family Medicine 10/03/23 Suzy Jauregui MD [address] [place] [address] [address] [place] [address] [phone] Consulting Physician Vascular Surgery 04/24/24 [employer] Relationship Specialty Start Date End Date Radha Khan [address] [place] [address] PCP - General Family Medicine 10/03/23 Suzy Jauregui MD [address] [place] [address] Consulting Physician Vascular Surgery 04/24/24 [employer] Relationship Specialty Start Date End Date Radha Khan [address] [place] [address] PCP - General Family Medicine 10/03/23 Suzy Jauregui MD [address] [facility] [address] [place] [address] Consulting Physician Vascular Surgery 04/24/24 [employer]room Relationship Specialty Start Date End Date Radha Khan MD [address] [place] [address] PCP - General Family Medicine 07/24/24 [employer] Relationship Specialty Start Date End Date Radha Khan MD [address] [place] [address] PCP - General Family Medicine 07/24/24 [employer] Relationship Specialty Start Date End Date Radha Khan MD [address] [place] [address] PCP - General Family Medicine 07/24/24 Team Status: Active Member Role Status Dates Brandt Winter MD Primary Care Provider Active Team Status: Inactive Member Role Status Dr. Radha Khan MD Primary Care Provider [...] 2024 End: April 15, 2024 Dr. Parish Viveors DO Other Provider Active St art: April [...] Edmund Dey MD Other Provider Active Start: [facility] 2024 End: April 25, 2024 Dr. Kristin [...] May 01, 2024 End: May 01, 2024 PITO Peña Attending Provider Active Start: May 01, 2024 End: May 01, 2024 Team Status: Active Member Role Status Dates Dr. Radha Khan MD Primary Care Provider Active Start: May 05, 2024 Dr. Rito Lundebrg MD Attending Provider Active Start: May 05, [...] 2024 End: June 02, 2024 PITO Peña Attending Provider Active Start: June 02, 2024 [...] June 10, 2024 End: June 10, 2024 PITO Peña Attending Provider Active Start: June 10, 2024 [...] August 17, 2024 End: August 17, 2024 [employer]room Relationship Specialty Start Date End Date Radha Khan MD [address] [facility] [address] [place] [address] PCP - General Family Medicine 07/24/24 Team [...] Team Status: Inactive Member Role Status Dates PITO Phan Attending Provider Active Start: September 16, 2024 End: September 16, 2024 Brandt Winter MD Primary Care Provider Active St art: September 16, 2024 End: September 16, 2024 Brandt Winter MD Referring Provider Active Start : September 16, 2024 End: September 16, 2024 [employer]mare [employer]room Relationship Specialty Start Date End Date Radha Khan MD [address] [place] [address] PCP - General Family Medicine 07/24/24 [employer]room Relationship Specialty Start Date End Date Radha Khan MD [address] [place] [address] PCP - General Family Medicine 07/24/24 Team Status: Active Member Role/Relationship Status Dates Brandt Winter MD Primary Care Provider Active Team Status: Inactive Member Role/Relationship Status Dates Dr. Radha Khan MD Primary Care Provider Active Start: June 02, 2024 End: June 02, 2024 JING PeñaC Attending Provider Active Start: June 02, 2024 End: June 02, 2024 PITO Peña Referring Provider Active Start: June 02, 2024 End: June 02, 2024 Team Status: Inactive Member Role/Relationship Status Dates Dr. Radha Khan MD Primary Care Provider Active Start: June 04, 2024 End: June 04, 2024 Dr. Toni Vann MD Attending Provider Active Start: June 04, 2024 End: June 04, 2024 Dr. Toni Vann MD Referring Provider Active Start: June 04, 2024 End: June 04, 2024 Team Status: Inactive Member Role/Relationship Status Dates Dr. Radha Khan MD Primary Care Provider Active Start: June 10, 2024 End: June 10, 2024 Dr. Radha Khan MD Referring Provider Active Start: June 10, 2024 End: June 10, 2024 PITO Peña Attending Provider Active Start: June 10, 2024 End: June 10, 2024 Team Status: Inactive Member Role/Relationship Status Dates Dr. Radha Khan MD Primary Care Provider Active Start: July 06, 2024 End: July 06, 2024 Dr. Toni Vann MD Attending Provider Active Start: July 06, 2024 End: July 06, 2024 Dr. Toni Vann MD Referring Provider Active Start: July 06, 2024 End: July 06, 2024 Team Status: Inactive Member Role/Relationship Status Dates Dr. Radha Khan MD Primary Care Provider Active Start: August 06, 2024 End: August 06, 2024 Dr. Toni Vann MD Attending Provider Active Start: August 06, 2024 End: August 06, 2024 Dr. Toni Vann MD Referring Provider Active Start: August 06, 2024 End: August 06, 2024 Team Status: Inactive Member Role/Relationship Status Dates Dr. Radha Khan MD Primary Care Provider Active Start: August 12, 2024 End: August 12, 2024 Dr. Radha Khan MD Referring Provider Active Start: August 12, 2024 End: August 12, 2024 Sumanth AVILA MD Attending Provider Active St art: August 12, 2024 End: August 12, 2024 Team Status: Inactive Member Role/Relationship Status Dates Brandt Winter MD Primary Care Provider Active St art: August 12, 2024 End: August 12, 2024 TUNDE Fernandez Attending Provider Active St art: August 12, 2024 End: August 12, 2024 TUNDE Fernandez Referring Provider Active St art: August 12, 2024 End: August 12, 2024 Team Status: Inactive Member Role/Relationship Status Dates Dr. Radha Khan MD Referring Provider Active Start: August 17, 2024 End: August 17, 2024 Dr. Toni Vann MD Attending Provider Active Start: August 17, 2024 End: August 17, 2024 Brandt Winter MD Primary Care Provider Active St art: August 17, 2024 End: August 17, 2024 Team Status: Inactive Member Role/Relationship Status Dates Dr. Radha Khan MD Referring Provider Active Start: September 15, 2024 End: September 15, 2024 Dr. Toni Vann MD Attending Provider Active Start: September 15, 2024 End: September 15, 2024 Brandt Winter MD Primary Care Provider Active St art: September 15, 2024 End: September 15, 2024 Team Status: Inactive Member Role/Relationship Status Dates PITO Phan Attending Provider Active Start: September 16, 2024 End: September 16, 2024 Brandt Winter MD Primary Care Provider Active St art: September 16, 2024 End: September 16, 2024 Brandt Winter MD Referring Provider Active Start : September 16, 2024 End: September 16, 2024 Team Status: Active Member Role/Relationship Status Dates Brandt Winter MD Primary Care Provider Active St art: September 26, 2024 Dr. Angel Avitia MD Referring Provider Active Sta rt: September 26, 2024 Dr. Angel Avitia MD Emergency Provider Active Sta rt: September 26, 2024 Dr. Xiao Berrios MD Admit Provider Active Star t: September 26, 2024 Dr. Xiao Berrios MD Attending Provider Active Start: September 26, 2024 Reason for Visit (unrecogniz ed section and content) Specialty Diagnoses / Procedures Referred By Contac t Referred To Contact Diagnoses carotid stenosis Procedures . Joe Rocha MD [address] [place] [address] [facility] [address] [place] [address] Referral ID Status Reason Start Date Expiration Date Visits Re quested Visits Authorized [id number] 1 1 Reason Comments New Patient New [...] at 0900 09 (Given - Provider: Nely Lambert, CAMILA) 08 (Given - Provider: Dariana Lawrence, CAMILA) apixaban (Eliquis) tablet 5 mg 5 mg, Oral, 2 times daily, First dose on Sat10/03/23 at 2130, Anticoagulant 2242 (Given - Provider: Dalila Helms, RN) 905 (Given - Provider: Nely Lambert, CAMILA)2033 (Given - Provider: Dalila Helms, CAMILA) 08 (Given - Provider: Dariana Lawrence, CAMILA) aspirin EC tablet 81 mg 81 mg, Oral, Daily, First dose on Sat10/04/23 at 0900, Do not crush, chew, or split. 09 (Given - Provider: Nely Lambert, CAMILA) 08 (Given - Provider: Dariana Lawrence, CAMILA) atorvastatin (Lipitor) tablet 80 mg 80 mg, Oral, Nightly, First dose on Sat10/03/23 at 2130 2242 (Given - Provider: Dalila Helms RN) 2033 (Given - Provider: Dalila Helms RN) busPIRone (Buspar) tablet 10 mg 10 mg, Oral, 3 times daily, First dose on Sat10/03/23 at 2130 2242 (Given - Provider: Dalila Helms RN) 0900 (Given - Provider: Nely Lambert RN)1320 (Given - Provider: Nely Lambert RN)2033 (Given - Provider: Dalila Helms RN) 0826 (Given - Provider: Dariana Lawrence, CAMILA)1403 (Given - Provider: Dariana Lawrence RN) dapagliflozin (Farxiga) tablet 5 mg 5 mg, Oral, Daily, First dose on Sat10/04/23 at 0900 0905 (Given - Provider: Nely Lambert RN) 0826 (Given - Provider: Dariana Lawrence RN) DULoxetine (Cymbalta) DR capsule 60 mg 60 [...] 0623 (Given - Provider: Dalila Helms RN) insulin [...] 0826 (Given - Provider: Dariana Lawrence RN) pantoprazole (ProtoNix) EC tablet 40 mg 40 mg, Oral, Daily before breakfast, First dose on Sat10/04/23 at 0600, Do not crush, chew, or split. 0555 (Given - Provider: Dalila Helms RN) 0623 (Given - Provider: Dalila Helms RN) sodium chloride 0.9 % bolus 250 mL (COMPLETED) 250 mL, IntraVENous, at 250 mL/hr, Administer over 1 Hours, Once, On Sat10/04/23 at 0630, For 1 dose 0630 (New Bag - Provider: Nely Lambert RN)0730 (Stopped - Provider: Nely Lambert RN) sodium [...] RN)1830 (Given - Provider: Nely Lambert RN) 0625 (Given - Provider: Dalila Helms RN) tamsulosin (Flomax) 24 hr capsule 0.4 mg 0.4 mg, Oral, Daily, First dose on Sat10/04/23 at 0900, Do not crush, chew, or split. 0906 (Given - Provider: Nely Lambert RN) 0826 (Given - Provider: Dariana Lawrence RN) Continuous Medication Order 10/03/2023 10/04/2023 10/05/2023 sodium chloride 0.9 % infusion (CANCELED) 50 mL/hr, IntraVENous, Continuous, Starting on Sat10/04/23 at 0630 0900 (New Bag - Provider: Nely Lambert RN)1100 (Stopped - Provider: Nely Lambert RN - Comment: ok to stop when eating and drinking) PRN Medication Order 10/03/2023 10/04/2023 10/05/2023 dextrose 5 % infusion 100 mL/hr, IntraVENous, PRN, Blood sugar less than 70mg/dL, Starting on Sat10/03/23 at 2126, Start infusion following administration of dextrose 50% or glucagon. dextrose 50 % solution 12.5 g 12.5 g, IntraVENous, PRN, low blood sugar, Blood glucose less than 70 mg/dL and patient NOT ALERT or NPO., Starting on Sat10/03/23 at 2126, If patient does not respond within 5 [...] have IV access., Starting on Sat10/03/23 at 2126, After administration, attempt intravenous access and start D5W at 100 mL/hr. Repeat blood glucose in 15 minutes x2 and notify provider. glucose oral gel 15 g 15 g, Oral, As needed, low blood sugar, Starting on Sat10/03/23 at 2126, If blood glucose less than 50 mg/dL [...] BE BASED ON THE PRIMARY CLINICAL RECORDS. [employer] provides no warranty or guarantee of the accuracy or completeness of information in this document.
[2024-09-26 19:17] LABS: Troponin T High Sens 2 HR 42 ng/L (<=22)
--- NOTE | 2024-09-26 20:03 | ECHOCS_ITS ---
Reason For Study Reason For Study: TIA/CVA Procedure This was a 2D Doppler, Color Flow transthoracic echocardiogram. The study was technically difficult. Contrast injection was performed. Exam performed portable in patient room. Left Ventricle Normal left ventricle. The estimated ejection fraction is 60-65 %. Right Ventricle Normal right ventricle. Normal systolic function. Atria Normal left atrium. Normal right atrium. Mitral Valve The mitral valve is structurally normal. No prolapse or stenosis seen. Trivial mitral valve insufficiency. Tricuspid Valve Normal tricuspid valve. Aortic Valve Trisinus/trileaflet aortic valve. Pulmonic Valve The pulmonic valve is not well visualized. Great Vessels The aortic root is not well visualized. Pericardium/Pleural No pericardial effusion. Medication Diluted definity 2ml given slow IV push to enhance endocardial definition. MMode/2D Measurements & Calculations LVIDd: 5.3 cm IVSd: 1.1 cm LVOT diam: 2.1 cm LVIDs: 3.5 cm LVPWd: 1.1 cm RVDd: 3.8 cm FS: 33.1 % LVOT area: 3.4 cm2 asc Aorta Diam: 3.3 cm LAV(MOD-bp): 69.8 ml LVAd ap4: 41.1 cm2 LAV(MOD-bp) Indexed: 27.5 ml/m2 LVLd ap4: 8.9 cm LAV(MOD-sp2): 82.2 ml EDV(MOD-sp4): 151.4 ml LAV(MOD-sp4): 51.2 ml EDV(sp4-el): 161.0 ml LVAs ap4: 21.3 cm2 LVLs ap4: 6.8 cm ESV(MOD-sp4): 54.0 ml ESV(sp4-el): 56.3 ml EF(MOD-sp4): 64.3 % EF(sp4-el): 65.0 % LVAd ap2: 34.0 cm2 SV(MOD-sp4): 97.3 ml SV(MOD-sp2): 61.3 ml LVLd ap2: 9.0 cm SI(MOD-sp4): 38.4 ml/m2 SI(MOD-sp2): 24.2 ml/m2 EDV(MOD-sp2): 103.4 ml EDV(sp2-el): 109.3 ml LVAs ap2: 20.1 cm2 LVLs ap2: 7.7 cm ESV(MOD-sp2): 42.0 ml ESV(sp2-el): 44.6 ml EF(MOD-sp2): 59.3 % SV(sp4-el): 104.7 ml Ao sinus diam: 3.[address] Junction: 3.0 cm LA dimension(2D): 4.8 cm LA A4 area: 18.7 cm2 RA A4 area: 11.1 cm2 TAPSE: 2.0 cm Time Measurements MV dec time: 0.16 sec Doppler Measurements & Calculations MV E max chin: 118.9 cm/sec Lat Peak E' Chin: 12.0 cm/sec Med Peak E' Chin: 7.8 cm/sec MV A max chin: 99.5 cm/sec E/E' lat: 9.9 E/E' med: 15.2 MV E/A: 1.2 MV dec slope: 734.2 cm/sec2 Ao V2 max: 197.3 cm/sec LV V1 max: 100.9 cm/sec Ao max P.6 mmHg LV V1 max P.1 mmHg Ao V2 mean: 158.7 cm/sec LV V1 mean P.6 mmHg Ao mean P.5 mmHg LV V1 mean: 77.8 cm/sec Ao V2 VTI: 47.1 cm LV V1 VTI: 24.6 cm AV (velocity ratio): 0.52 BAHMAN(I,D): 1.8 cm2 BAHMAN(V,D): 1.8 cm2 SV(LVOT): 84.4 ml PA V2 max: 99.9 cm/sec ECHO/Echo Complete W/ Contrast Interpretation Summary The estimated ejection fraction is 60-65 %. Normal LV systolic function No significant valve abnormality No pericardial effusion. Previous bubble study was performed which showed no intracardiac shunt. No significant change from previous echocardiogram Ordering Physician: Xiao Berrios Referring Physician: Angel Avitia Performed By: Trniidad Johnson RDCS
--- NOTE | 2024-09-26 20:11 | NURSING ---
patient gave himself 132u via home insulin pump
[2024-09-26 20:18] LABS: Bedside Glucose 172 mg/dL (74-106)
--- OUTSIDE RECORDS SUMMARY | 2024-09-26 20:58 | XMS RPT_ITS | CCD ---
Author Organization [facility] CliniSynm Care Team Providers Care Paper Machine Operator Name Role Phone Radha Khan [...] Attending Provider PITO Gerardo Attending Provider Dr. Joanthon Salas Attending Provider Dr. Jonathon Salas Other Provider Dr. Fran Rodriguez Attending Provider Dr. Radha Khan Primary Care Provider Dr. Radha Khan Referring Provider Dr. Jonathon Salas Referring Provider Roof TREE KILLER, TREE KILLER-Surinder Jackson Attending Provider Dr. Radha Khan Primary Care Provider Dr. Radha Khan Referring Provider PITO Gerardo Attending Provider Roof TREE KILLER, TREE KILLER-Surinder Jackson Attending Provider Vallejo TREE KILLER, TREE KILLER-Surinder Childress Attending Provider Dr. Radha Khan Primary [...] Provider Dr. Karol Rushing Attending Provider Roof TREE KILLERPITO Attending Provider Dr. Toni Vann Attending Provider [...] Provider Dr. Radha Khan Referring Provider Roof TREE KILLERPITO Attending Provider Dr. Karol Rushing Attending Provider Dr. Toni Vann Attending Provider Dr. Karol Rushing Other Provider Sarika PA, PA-C Shanti Referring Provider Sarika PA, PA-C Shanti Other Provider Dr. Francois Valiente Attending Provider Dr. Francois Valiente Referring Provider PITO Gerardo Attending Provider Dr. Radha Khan Primary Care Provider Dr. Radha Khan Referring Provider [facility] PITO ANG Attending Provider Dr. Ochoa Dobbs Attending Provider BILL MCRAE, DR GARCIA Primary Care Physician Radha Khan Primary Care Provider [phone] CHITRA 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-NARROW FABRICS WEAVER, CHITO Nuñez Referring Unavailable GALINDO-GABRIELA 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-NARROW FABRICS WEAVER, CHITO Nuñez Attending Unavailable GALINDO-GABRIELA 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-NARROW FABRICS WEAVER, CHITO Nuñez Admitting Unavailable ERNESTO MCRAE, AMBER [...] Provider Ungmeek DO, Dr. Rockwell Emergency Provider Bhavesh MCRAE, Dr. Denny Admit Provider Unavailable Bhavesh MCRAE, Dr. Denny Other Provider Unavailable Ryder MCRAE, Dr. Norwood Attending Provider Monico MCRAE, Dr. Hall Other Provider Katherine MCRAE, Dr. Mendez Other Provider Josue MCRAE, Dr. Holt Other Provider [phone] Michael PUTNAM, Dr. Peters Other Provider Brynn MCRAE, Dr. Eduin Duarte Other Provider [phone] Aneta MCRAE, Dr. Bermudez Other Provider Payton MCRAE, Dr. Taylor Other Provider Magdaleno MCRAE, Dr. Arnold Other Provider Robert MCRAE, Dr. Lopez Other Provider Javy MCRAE, Dr. Perdomo Other Provider Dr. Juan Diego Santoro MD Other Provider Jose MCRAE, Dr. Myles Other Provider Dr. Shobha Larios MD Other Provider Unavailabl adam Valentine MD, Dr. Amin Other Provider [phone] Gavi MCRAE, Dr. Gilliam Other Provider [phone] Sim MCRAE, Dr. Menchaca Other Provider Felice PUTNAM, Dr. Lugo Other Provider Bernice MCRAE, Dr. Huber Other Provider Kae MCRAE, Dr. Gary Other Provider Dr. Thang Garcia DO Other Provider Hiro MCRAE, Dr. Reyes Other Provider Horacio MCRAE, Dr. Hernandez Other Provider Dr. Cuco Soler MD Other Provider [phone] Michael PUTNAM, Dr. Peters Attending Provider [phone] Bill MCRAE, Dr. Radha Mcmahon Referring Provider [phone] Akin TREE KILLER-C, Coreen Attending Provider Bob TREE KILLER-C, Chen Nuñez Attending Provider Bill MCRAE, Dr. Radha Mcmahon Attending Provider [phone] Tarun PUTNAM, Dr. Sanchez Referring Provider [phone] Tarun PUTNAM, Dr. Sanchez Emergency Provider Arabella MCRAE, Dr. Cookie Ho Admit Provider Arabella MCRAE, Dr. Cookie Ho Other Provider Yissel MCARE, Edmund Other Provider Unavailable Deb MCRAE, Dr. Foster Other Provider [phone] Amy Dumont MD Other Provider Unavailable Dr. Bethany Velasco DO Other Provider [phone] Loy MCRAE, Dr. Ayala Other Provider [phone] Yani MCRAE, Dr. Mondragon Other Provider [phone] Wm MRCAE, Dr. Acharya Other Provider Tejas MCRAE, Dr. Ruano Other Provider [phone] Dr. Julius Flores MD Other Provider Nitish MCRAE, Dr. Ibarra Other Provider [phone] Jennifer Toledo MD Other Provider Maria Elena [...] Attending Provider Bob ANG-CChen Attending Provider Bob ANG-CChen Referring Provider Soo MCRAE, Dr. Mñuoz Attending Provider Dr. Toni Vann MD Referring Provider Sumanth Hanna MD Attending Provider Unavailable Brandt Winter MD Primary Care Provider [phone] Khadar Salguero Attending Provider Khadar Salguero Referring Provider Akin ANG-CCoreen Attending Provider Moy MCRAE, Brandt Referring Provider Jolliff, Radha S Primary Care Unavailable PrasanthSameer Attending Unavailable Sameer Rader Referring Unavailable Roof TREE KILLER, Oren H Attending Unavailable Roof TREE KILLER, Oren H Referring Unavailable Jolliff, Radha S Primary Care Unavailable Jolliff, Radha S Referring Unavailable Jolliff, Radha S Attending Unavailable Jolliff, Radha S Primary Care Unavailable Jolliff, Radha S Primary Care Unavailable Jolliff, Radha S Referring Unavailable Yoni TREE KILLER, Fior Attending Unavailable Fabiolaiff, Radha S Primary [...] Jolliff, Radha S Primary Care Unavailable Sumanth Hnana Attending Unavailable Lydia Jiménez Referring Unavail able [...] Consulting Unavailable Mane Gatica Consulting Unavailable Nikolai Montemaoyr Consulting Unavailable Parish Viveros Consulting Unavailable Cecile Queen Consulting Unavailable Abdirahman Pal Consulting Unavailable Thang Garcia Consulting Unavailable Eric Bosch Consulting Unavailable David Leonard Consulting Unavailable Jolliff, Radha S Primary Care Unavailable Asya ANG, Oren Jackson Attending Unavailable Asya TREE KILLEROren Referring Unavailable Jolliff, Radha S Primary Care Unavailable Yoni ANG, Fior Attending Unavailable Fior [place] NP Referring Unavailable Chen Rojas Attending Unavailable Chen Rojas Referring Unavailable Jolliff, Radha S Primary Care Unavailable Jolliff, Radha S Primary Care Unavailable Yoni TREE KILLER, Fior Attending Unavailable [place] TREE KILLER, Fior Referring Unavailable Jolliff, Radha S Primary [...] Jackson Attending Unavailable BaddourToni Referring Unavailable Roof TREE KILLEROren Attending Unavailable Roof TREE KILLER, Oren Jackson Referring Unavailable Jolliff, Radha S [...] Attending Unavailable Moy, Chalon Primary Care Unavailable [place]Ochoa baum Attending Unavailable Jolliff, Radha S Referring [...] Unavailable Jolliff, Radha S Referring Unavailable Asya TREE KILLER, Oren Jackson Attending Unavailable Jolliff, Radha S Referring Unavailable BaddourToni Attending Unavailable Jolliff, Radha S Primary Care Unavailable Jolliff, Radha S Primary Care Unavailable [place] TREE KILLER, Fior Referring Unavailable [place] TREE KILLER, Fior Attending Unavailable Jolliff, Radha S Referring [...] Dolan Consulting UnavailJohn Herrera Consulting Unavailable Conor Palaofx Consulting Unavailable Shameka Garcia Consulting Unavailable Shobha Larios Consulting Unavailable Robert Valentinem Consulting Unavailable Donnell Gaticaan Consulting Unavailable Nikolai Montemayor Consulting Unavailable Parish Viveros Consulting Unavailable Cecile Queen Consulting Unavailable Thang Garcia Consulting Unavailable Eric Bosch Consulting Unavailable David Leonard Consulting Unavailable Jolliff, Radha S Primary Care Unavailable Jolliff, Radha S Referring Unavailable [place] TREE KILLER, Fior Attending Unavailable Jolliff, Radha S Referring Unavailable Coreen Gerardo Attending Unavailable Jolliff, Radha S Primary Care Unavailable Jolliff, Radha S Referring Unavailable Bethany Shelley Attending Unavailable Jolliff, Radha S Primary Care Unavailable Chen Rojas Attending Unavailable Jolliff, Radha S Referring Unavailable Jolliff, Radha S Primary Care Unavailable Eduin Ospina Attending Unavailable Jolliff, Radha S Primary Care Unavailable Fran Rodriguez Attending Unavailable [place] TREE KILLER, Fior Referring Unavailable Jolliff, Radha S Primary Care Unavailable Asya TREE KILLER, Oren H Attending Unavailable Jolliff, Radha S Primary Care Unavailable Asya TREE KILLEROren Referring Unavailable Sumanth Hanna Attending Unavailable Edmund [...] Jolliff, Radha S Primary Care Unavailable Yoni TREE KILLER, Fior Referring Unavailable Yoni TREE KILLERFior Attending Unavailable Armin Fermin Attending Unavailable Jolliff, [...] Care Unavailable Fran Rodriguez Attending Unavailable [place] TREE KILLER, Fior Consulting Unavailable [place] TREE KILLER, Fior Referring Unavailable Roof TREE KILLER, Oren H Referring Unavailable Jacques, [place] Attending Unavailable Jolliff, Radha S Primary Care Unavailable Roof TREE KILLER, Oren H Consulting Unavailable Jolliff, Radha S Primary Care Unavailable Jolliff, Radha S Referring Unavailable Friend, Ede Attending Unavailable Friend, Ede Consulting Unavailable Jolliff, Radha S Primary Care Unavailable Fran Rodriguez Attending Unavailable [place] TREE KILLER, Fior Consulting Unavailable [place] TREE KILLER, Fior Referring Unavailable Jolliff, Radha S Referring [...] Jolliff, Radha S Primary Care Unavailable Jolliff, Radah S Referring Unavailable Lydia Jiménez Attending Unavail [...] Provider Dr. Angel Avitia MD Referring Provider [phone] Angel Avitia MD Emergency Provider Dr. Xiao Berrios MD Admit Provider [phone] Xiao Berrios MD Attending Provider Allergies Allergy Classification Reported Allergen(s) Allergy Type Date of Onset Reaction(s) Facility DOPamine Antagonists (1 source) Metoclopramide; Translations: [metoclopramide] Drug Allergy [facility] (20 sources) Metoclopramide Drug Allergy 6 Shortness of Breath [facility] (20 sources) Metoclopramide; Translations: [METOCLOPRAMIDE] Drug Allergy 6 Anaphylaxis, Shortness of breath [facility] (1 source) Metoclopramide Drug Allergy 5 [facility] Repository Medications Current Medications Medication Drug Class(es) [...] as needed for severe pain (7-10). 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) misc Active 0 .ROUTE .MEDSUPPLY 1 July 26, 2020 12:00am As directed Blood-Glucose Sensor ([employer]excom G6 Sensor) device (20 sources) Start: 02-25-2023 Blood-Glucose Sensor (Dexcom G6 Sensor) device Active 0 .ROUTE .MEDSUPPLY 1 February 25, 2023 12:46pm Diabetes mellitus 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 with hyperglycemia intermediate frame tender (current) use of insulin dm As directed [...] mellitus 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 with hyperglycemia penitentiary (current) use of insulin As directed Start: [...] mellitus 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 with hyperglycemia penitentiary (current) use of insulin As directed Start: [...] mellitus 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 with hyperglycemia intermediate frame tender (current) use of insulin As directed Start: [...] 12:00am June 01, 2021 3:34pm As directed Blood-Glucose,Liberal Arts Teacher,Cont ([employer] G6 Liberal Arts Teacher) misc (3 sources) Start: 07-26-2020 Blood-Glucose,Liberal Arts Teacher,Cont ([employer] G6 Liberal Arts Teacher) misc Active 0 .ROUTE .MEDSUPPLY 1 0 July 26, 2020 12:00am dm As directed Start: 07-26-2020 Blood-Glucose, Liberal Arts Teacher,Cont ([employer] G6 Liberal Arts Teacher) misc Active 0 .ROUTE .MEDSUPPLY 1 [...] Microalbuminuria 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 with hyperglycemia intermediate frame tender (current) use of insulin Proteinuria, unspecified diabetes [...] every week ergocalciferol (Vitamin D2) 1.25 MG (08072 UT) capsule Take 1 capsule by mouth [...] Agonist Start: 02-14-2023 End: 05-06-2024 HYDROcodone-acetami nophen ([place]) 5-325 MG tablet Take 1 tablet by [...] mg PO DAILY March 13, 2024 12:25pm [facility] Start: 10-06-2023 End: 10-05-2023 take [...] 30, 2020 1:00am November 27, 2023 3:20pm [facility] Start: 11-03-2018 End: 03-30-2020 take [...] extended release oral tablet (20 sources) Uncompetitive L-xyzmag-E-aspartate Receptor Antagonist, Sigma-1 Agonist Start: 04-24-2024 End: [...] mellitus 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 with hyperglycemia penitentiary (current) use of insulin blood sugar Start: 02-02-2021 End: 10-08-2022 take 1 tablet by mouth twice daily Glimepiride (Amaryl) 4 mg tablet Discontinued 4 mg PO TWICE A DAY 180 March 12, 2022 9:12am October 08, 2022 2:23pm Diabetes mellitus 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 with hyperglycemia intermediate frame tender (current) use of insulin Start: 07-22-2020 End: [...] mellitus 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 with hyperglycemia intermediate frame tender (current) use of insulin Start: 08-15-2022 End: [...] aftercare (6 sources) Drug therapy finding; Translations: [penitentiary (current) use of anticoagulants] 03-05-2024 Episodic Other aftercare (12 sources) Long-term current use of anticoagulant; Translations: [intermediate frame tender (current) use of anticoagulants] 11-24-2023 Episodic Other aftercare (1 source) penitentiary (current) use of insulin; Translations: [intermediate frame tender (current) use of insulin] Onset: 5 Episodic [...] 05-30-2007 05-30-2007 Episodic Other aftercare (1 source) penitentiary (current) use of anticoagulants; Translations: [penitentiary (current) use of anticoagulants] Onset: 05-05-2024 Episodic [...] (Unsp spec) [#/Vol] 0.58 10*3/uL Low 0.83-4.51 [facility] Absolute neutrophil countOrd ered By: Angelchristian Avitia on 09-26-2024 Neutrophils (Bld) [#/Vol] 11.9 10*3/uL High 2.0-7.7 [facility] Activated partial thrombopla stin time (aPTT) in platelet poor plasma by coagulation aOrdered By: Angel Avitia on 09-26-2024 aPTT Coag (PPP) [Time] 20.8 s Low 24.1-36.2 [facility] Anion gap in Serum or Plasma Ordered By: Angelchristian Avitia on 09-26-2024 Anion gap [Moles/Vol] 15 mmol/L 5-15 [facility] Automated lymphocyte count a s percentage of total leukocytesOrdered By: Angelchristian Avitia on 09-26-2024 Lymphocytes/100 WBC Auto (Unsp spec) 4.2 % Low 19-41 [facility] BUN/creatinine ratioOrdered By: [facility] 09-[facility]24 Urea nitrogen/Creatinine [Mass ratio] 24.6 mg/mg High 10-20 [facility] Basophil percentageOrdered B y: Angelchristian Avitia on 09-26-2024 Basophils/100 WBC (Bld) 0.4 % 0-1 [facility] Carbon dioxide, total [Moles /volume] in Central venous bloodOrdered By: Angel Avitia on 09-26-2024 CO2 [Moles/Vol] 22.9 mmol/L 21.0-32.0 [facility] Chloride assayOrdered By: Domonique Avitia on 09-26-2024 Chloride [Moles/Vol] 100 mmol/L 98-108 [facility] Eosinophil percentageOrdered By: Angel Avitia on 09-26-2024 Eosinophils/100 WBC (Bld) 0.6 % 0-5 [facility] Erythrocyte distribution wid th ratioOrdered By: Angelchristian Avitia on 09-26-2024 Erythrocyte distribution width (RBC) [Ratio] 17.9 % High 11.6-14.6 [facility] Erythrocyte distribution wid th standard deviationOrdered By: Angelchristian Avitia on 09-26-2024 Erythrocyte distribution width (RBC) [Ratio] 50.9 fl High 35.1-43.9 [facility] Glomerular filtration rate ( GFR) estimation/1.73 sq m using serum, plasma, or whole bOrdered By: Angel Avitia on 09-26-2024 GFR/1.73 sq M.predicted among non-blacks MDRD (S/P/Bld) [Vol rate/Area] 65 mL/min/{1.73_m2} >60 [facility] Comment on above: mL/min/1.73m2 CKD-EP I Creatinine Equation (2020) Hematocrit Auto (Bld) [Volum e fraction]Ordered By: Angel Avitia on 09-26-2024 Hematocrit (Bld) [Volume fraction] 30.0 % Low 40-54 [facility] Hemoglobin measurementOrdere d By: Angel Avitia on 09-26-2024 Hemoglobin (Bld) [Mass/Vol] 9.1 g/dL Low 13.0-16.5 [facility] Immature granulocytes/100 WB C Auto (Bld)Ordered By: Angel Avitia on 09-26-2024 Immature granulocytes/100 WBC (Bld) 0.800 % 0.0-0.9 [facility] Comment on above: IG% - Immature Granu locytes (promyelocytes, myelocytes and metamyelocytes) > 1% indicates that a LEFT SHIFT is Present. International normalized rat io (INR) calculationOrdered By: Angel Avitia on 09-26-2024 INR Coag (Bld) [Relative time] 1.0 {INR} [facility] MCV (mean corpuscular volume ) determinationOrdered By: Angelchristian Avitia on 09-26-2024 MCV (RBC) [Entitic vol] 79.2 fL Low 80-94 [facility] Mean corpuscular hemoglobin (MCH) determinationOrdered By: Angel Avitia on 09-26-2024 MCH (RBC) [Entitic mass] 24.0 pg Low 27.0-32.0 [facility] Mean corpuscular hemoglobin concentration (MCHC) determinationOrdered By: Angelchristian Caseo on 09-26-2024 MCHC (RBC) [Mass/Vol] 30.3 g/dL Low 32-36 [facility] Mean platelet volume determi nationOrdered By: Angel Avitia on 09-26-2024 Platelet mean volume (Bld) [Entitic vol] 10.4 fL 6.2-12.0 [facility] Monocyte percentageOrdered B y: Angelchristian Avitia on 09-26-2024 Monocytes/100 WBC (Bld) 8.7 % 0-10 [facility] Neutrophil percentageOrdered By: Angel Avitia on 09-26-2024 Neutrophils/100 WBC (Bld) 85.3 % High 47-70 [facility] Nucleated red blood cell per centageOrdered By: Angelchristian Aivtia on 09-26-2024 Nucleated RBC/100 WBC (Bld) [Ratio] 0 % 0-5 [facility] Platelet countOrdered By: Domonique christian Avitia on 09-26-2024 Platelets (Bld) [#/Vol] 237 10*3/uL 150-450 [facility] Potassium measurement (mass/ volume)Ordered By: Angelchristian Avitia on 09-26-2024 Potassium (Unsp spec) [Mass/Vol] 4.2 mmol/L 3.3-5.1 [facility] Comment on above: Hemolysis present, R esults could be affected. Prothrombin timeOrdered By: Angel Avitia on 09-26-2024 PT Coag (PPP) [Time] 13.1 s 11.7-14.9 [facility] RBC Auto (Bld) [#/Vol]Ordere d By: Angel Avitia on 09-26-2024 RBC (Bld) [#/Vol] 3.79 10*6/uL Low 4.6-6.2 [facility] Serum creatinine measurement (mass/volume)Ordered By: Angel Avitia on 09-26-2024 Creatinine [Mass/Vol] 1.26 mg/dL High 0.70-1.20 [facility] Serum glucose measurement (m ass/volume)Ordered By: Angel Avitia on 09-26-2024 Glucose [Mass/Vol] 246 mg/dL High 70-99 [facility] Serum or plasma calcium grazyna urement (mass/volume)Ordered By: Angelchristian Avitia on 09-26-2024 Calcium [Mass/Vol] 9.0 mg/dL 7.6-11.0 [facility] Serum or plasma urea nitroge n measurement (mass/volume)Ordered By: Angel Avitia on 09-26-2024 Urea nitrogen [Mass/Vol] 31 mg/dL High 4-19 [facility] Sodium levelOrdered By: Angelchristian Avitia on 09-26-2024 Sodium [Moles/Vol] 138 mmol/L 133-145 [facility] Troponin T.cardiac [Mass/vol ume] in Serum or Plasma by High sensitivity methodOrdered By: Angel Avitia on 09-26-2024 Troponin T.cardiac High sensitivity method [Mass/Vol] 47 ng/L High <22 [facility] White blood cell (WBC) count Ordered By: Angel Avitia on 09-26-2024 WBC (Bld) [#/Vol] 14.0 10*3/uL High 4.4-11.0 [facility] ASPERGILLUS GALACTOMANNAN EI A (NON-BLOOD SPECIMEN)on 09-24-2024 Galactomannan Ag IA Qn 0.027 Normal <0.500 [facility] Comment on above: Result Comment: Inte [...] Aspergillus Galactomannan EIA is a product of [employer] and is FDA approved for in vitro diagnostic use. Testing Performed at: [facility] [address] [place] [address] Construction Specialist: José Harrsi, PhD BHAVNA ([facility] CLIA # [id number] FLAG Interpretation: A = Abnormal, H = High, L = Low Performed By: #### A SPQN ####[facility] ([id number] [place] [address] BASIC METABOLIC PANEL WITH A NION GAPon 09-24-2024 Calcium [Mass/Vol] 8.7 mg/dL Normal 8.6-10.3 [facility] Comment on above: Order Comment: FASTI NG:YES FASTING: YES Performed By: #### 9 578, 175 #### [facility] [address], [address] [place] [address] Scientific Helper: Octavio Segovia MD Chloride [Moles/Vol] 102 mmol/L Normal 98-110 [facility] Comment on above: Order Comment: FASTI NG:YES FASTING: YES Performed By: #### 9 490, 175 #### [facility] [address], [address] [place] [address] Scientific Helper: Octavio Segovia MD CO2 [Moles/Vol] 20 mmol/L Normal 20-32 [facility] Comment on above: Order Comment: FASTI NG:YES FASTING: YES Performed By: #### 9 533, 175 #### [facility] [address], [address] [place] [address] Scientific Helper: Octavio Segovia MD Creatinine [Mass/Vol] 1.49 mg/dL High 0.70-1.[address] [facility] Comment on above: Order Comment: FASTI NG:YES FASTING: YES Performed By: #### 9 2497, 1759 #### [facility] [address], [address] [place] [address] Scientific Helper: Octavio Segovia MD ELECTROLYTE BALANCE 14 mmol/L (calc) Normal 7-17 [facility] Comment on above: Order Comment: FASTI NG:YES FASTING: YES Performed By: #### 9 2497, 175 #### [facility] [address], [address] [place] [address] Scientific Helper: Octavio Segovia MD GFR/1.73 sq M.predicted among non-blacks MDRD (S/P/Bld) [Vol rate/Area] 53 mL/min/{1.73_m2} Low > OR = 60 [facility] Comment on above: Order Comment: FASTI NG:YES FASTING: YES Performed By: #### 9 2497, 175 #### [facility] [address], [address] [place] [address] Scientific Helper: Octavio Segovia MD Glucose [Mass/Vol] 304 mg/dL High 65-99 [facility] Comment on above: Order Comment: FASTI NG:YES FASTING: YES Result Comment: Fasting reference interval For someone without known diabetes, a glucose value >125 mg/dL indicates that they may have diabetes and this should be confirmed with a follow-up test. Performed By: #### 9 [id number], 1759 #### [facility] [address], [address] [place] [address] Scientific Helper: Octavio Segovia MD Potassium [Moles/Vol] 4.8 mmol/L Normal 3.5-5.[address] [facility] Comment on above: Order Comment: FASTI NG:YES FASTING: YES Performed By: #### 9 2497, 175 #### [facility] of [address], [address] [place] [address] Scientific Helper: Octavio Segovia MD Sodium [Moles/Vol] 136 mmol/L Normal 135-146 [facility] Comment on above: Order Comment: FASTI NG:YES FASTING: YES Performed By: #### 9 [id number], 1759 #### [facility] [address], [address] [place] [address] Scientific Helper: Octavio Segovia MD Urea nitrogen [Mass/Vol] 36 mg/dL High 10-23 [facility] Comment on above: Order Comment: FASTI NG:YES FASTING: YES Performed By: #### 9 [id number], 1759 #### [facility] [address], [address] [place] [address] Scientific Helper: Octavio Segovia MD Urea nitrogen/Creatinine [Mass ratio] 24 mg/mg High 09-20 [facility] Comment on above: Order Comment: FASTI NG:YES FASTING: YES Performed By: #### 9 [id number], 1759 #### [facility] [address], [address] [place] [address] Scientific Helper: Octavio Segovia MD BRONCHOSCOPYon 09-24-2024 BRONCHOSCOPY Table formatting fro m the original result was not included. Images from the original result were not included. Bronchoscopy Operative Report [facility] Date of procedure: 09/24/24 Patient: Krunal Leos [...] INDICATION: Obtain diagnosis BRONCHOSCOPIST: Dick Nguyen MD Merchandise Marker: Maeve Pringle MD PROCEDURES PERFORMED: Flexible Bronchoscopy Cryo Transbronchial Biopsy using 1.7 cryoprobe 7 [place] Osmani renuka placement in RLL and RML BAL RML Events Procedure Events Event Event Time ENDO SCOPE IN TIME 09/24/2024 8:05 AM ENDO SCOPE OUT TIME 09/24/2024 8:40 AM POST-PROCEDURE DIAGNOSIS: Interstitial Lung Disease ANESTHESIA: GETA. See separate anesthesia provider documentation. This procedure was performed using standard monitoring procedures in [facility] [facility] Endoscopy Suite. Medications See Anesthesia Record. Details [...] bronchoscopy was performed via ETT. A 7 botswanan renuka was placed outside of the ETT [...] cryo transbronchial biopies and placement of 7 botswanan renuka. The procedure required more time than usual to perform. After diagnostic/therapeutic maneuvers, the airway was examined for evidence of bleeding. None was noted. The bronchoscope was removed from the patient's airway and the airway was handed back over to my colleagues from anesthesiology. SPECIMENS: ID Type Source Karly (more content not included)... [facility] Comment on above: Order Comment: [facility] hoscopy Scheduling Request Pre-bronchoscopy visit: Not needed with Dr Padron Please schedule procedure: After September 11, 2024 Cytology on-site: No Location: [facility] Performing physician: Dick Nguyen MD or interventional pulm (cryo ILD biopsies) Referring physician: Rosalino Padron MD, Radha Khan MD Indication: undifferentiated ILD Sedation / Anesthesia: GA Procedure: Airway exam, BAL, TBBx, Rigid, 7 botswanan renuka with rigid, if too hypoxic then 8.5/9 ETT with 5 botswanan renuka Time: Tier 2 Fluorscopy: Yes Imaging [...] 09/26/2024840 Result Status: Final result Resulting Lab: [facility] [address] [id number] CULTURE No growth aerobically and anaerobically STAIN (2+) Few Polymorphonuclear leukocytes No organisms seen Normal [facility] Comment on above: Performed By: #### 3 2355-0 #### MICHAEL Ho ([id number]) [facility] ([facility]) [id number] [place] [address] Bronchoscopy studyon 025 Addendum by Dick Davis am, MD on 09/24/2024 9:35 AM EDT Table formatting from the original result was not included. Images from the original result were not included. Bronchoscopy Operative Report [facility] Date of procedure: 09/24/24 Patient: Krunal Leos [...] INDICATION: Obtain diagnosis BRONCHOSCOPIST: Dick Nguyen MD Merchandise Marker: Maeve Pringle MD PROCEDURES PERFORMED: Flexible Bronchoscopy Cryo Transbronchial Biopsy using 1.7 cryoprobe 7 Gambian Osmani renuka placement in RLL and RML BAL RML Events Procedure Events Event Event Time ENDO SCOPE IN TIME 09/24/2024 8:05 AM ENDO SCOPE OUT TIME 09/24/2024 8:40 AM POST-PROCEDURE DIAGNOSIS: Interstitial Lung Disease ANESTHESIA: GETA. See separate anesthesia provider documentation. This procedure was performed using standard monitoring procedures in [facility] End[facility]. Medications See Anesthesia Record. Details [...] bronchoscopy was performed via ETT. A 7 botswanan renuka was placed outside of the ETT [...] cryo transbronchial biopies and placement of 7 botswanan renuka. The procedure required more time than usual to perform. After diagnostic/therapeutic maneuvers, the airway (more content not included)... [facility] Work Phone: [facility] Work Phone: Radiology Study observation (narrative) [facility] Work Phone: CBC (H/H, RBC, INDICES, WBC, PLT)on 09-24-2024 Erythrocyte distribution width (RBC) [Ratio] 16.0 % High 11.0-15.0 [facility] Comment on above: Performed By: #### 9 5490, 2322 #### [facility] of [address], [address] [place], [place] [id number] Scientific Helper: Octavio Segovia MD Hematocrit (Bld) [Volume fraction] 33.0 % Low 38.5-50.0 [facility] Comment on above: Performed By: #### 9 630, 1758 #### [facility] [address], [address] [place], [place] [id number] Scientific Helper: Octavio Segovia MD Hemoglobin (Bld) [Mass/Vol] 9.4 g/dL Low 13.2-17.1 [facility] Comment on above: Performed By: #### 9 962, 5824 #### [facility] [address], [address] [place], [place] [address] Scientific Helper: Octavio Segovia MD MCH (RBC) [Entitic mass] 23.4 pg Low 27.0-33.0 [facility] Comment on above: Performed By: #### 9 2497, 1759 #### [facility] [place] [address] Scientific Helper: Octavio Segovia MD MCHC (RBC) [Mass/Vol] 28.5 [...] #### 9 2497, 1759 #### [facility] [place] [address] Scientific Helper: Octavio Segovia MD MCV (RBC) [Entitic vol] 82.1 fL Normal 80.0-100.0 [facility] Comment on above: Performed By: #### 9 2497, 1759 #### [facility] [place] [address] Scientific Helper: Octavio Segovia MD Platelet mean volume (Bld) [Entitic vol] 10.4 fL Normal 7.5-12.5 [facility] Comment on above: Performed By: #### 9 2497, 175 #### [facility] [place] [address] Scientific Helper: Octavio Segovia MD Platelets (Bld) [#/Vol] 259 10*3/uL Normal 140-400 [facility] Comment on above: Performed By: #### 9 2497, 175 #### [facility] [place] [address] Scientific Helper: Octavio Segovia MD RBC (Bld) [#/Vol] 4.02 10*6/uL Low 4.20-5.80 [facility] Comment on above: Performed By: #### 9 2497, 1759 #### [facility] [address], [address] [place] [address] Scientific Helper: Octavio Segovia MD WBC (Bld) [#/Vol] 12.8 10*3/uL High 3.8-10.8 [facility] Comment on above: Performed By: #### 9 2498, 1759 #### [facility] [address], [address] [place] [address] Scientific Helper: Octavio Segovia MD Cell count panel (Body fld)O rdered By: Johanna Prieto on 09-24-2024 Clarity (Body fld) Clear Clear [facility] Color (Body fld) Colorless Colorless, Straw, Yellow [facility] RBC Auto (Body fld) [#/Vol] /uL see comment /uL [facility] WBC (Body fld) [#/Vol] 0.022 10*3/uL See Comment [facility] Body Fluid cell coun t reference ranges have not been established by [facility]. Reference ranges provided are based on published references. This test was developed and its performance characteristics determined by [facility]. It has not been cleared or approved by the [place] Food and Drug Administration. [facility] Cell count panel (Body fld)o n 09-24-2024 Clarity (Body fld) Clear Normal Clear [facility] Comment on above: Order Comment: Body Fluid cell count reference ranges have not been established by [facility]. Reference ranges provided are based on published references. This test was developed and its performance characteristics determined by [facility]. It has not been cleared or approved by the [place] Food and Drug Administration. Performed By: #### 3 4556-1 #### MICHAEL Ho ([id number]) [facility] ([facility]) [address] [place] [address] Color (Body fld) Colorless Normal Colorless, Straw, Yellow [facility] Comment on above: Order Comment: Body Fluid cell count reference ranges have not been established by [facility]. Reference ranges provided are based on published references. This test was developed and its performance characteristics determined by [facility]. It has not been cleared or approved by the [place] Food and Drug Administration. Performed By: #### 3 4556-1 #### MICHAEL Ho ([id number]) [facility] ([facility]) [address] [place] [address] RBC Auto (Body fld) [#/Vol] <2000 Normal see comment [facility] Comment on above: Order Comment: Body Fluid cell count reference ranges have not been established by [facility]. Reference ranges provided are based on published references. This test was developed and its performance characteristics determined by [facility]. It has not been cleared or approved by the [place] Food and Drug Administration. Performed By: #### 3 4556-1 #### MICHAEL Ho ([id number]) [facility] ([facility]) [address] [place] [address] WBC (Body fld) [#/Vol] 0.022 10*3/uL Normal See Comment [facility] Comment on above: Order Comment: Body Fluid cell count reference ranges have not been established by [facility]. Reference ranges provided are based on published references. This test was developed and its performance characteristics determined by [facility]. It has not been cleared or approved by the [place] Food and Drug Administration. Performed By: #### 3 4556-1 #### MICHAEL Ho ([id number]) [facility] ([facility]) [address] [place] [address] Differential panel (Body fld )on 09-24-2024 Cells Counted Total (Body fld) [#] 100 [facility] Eosinophils/100 WBC Manual cnt (Body fld) 1 % see comment [facility] Comment on above: BAL Reference Range: <1% Lymphocytes/100 WBC Manual cnt (Body fld) 21 % see comment [facility] Comment on above: Synovial/Peritoneal/ Pericardial/Pleural Fluid Reference Range: <75% BAL Reference Range: <10% Monocytes+Macrophages/1 00 WBC Manual cnt (Body fld) 53 % see comment [facility] Comment on above: Synovial/Peritoneal/ Pericardial/Pleural Fluid Reference Range: <70% BAL Reference Range: 87-100% Neutrophils/100 WBC (Body fld) 25 % see comment [facility] Comment on above: Synovial/Peritoneal/ Pericardial/Pleural Fluid Reference Range: <25% BAL Reference Range: <2% Body Fluid cell differential reference ranges have not been established by [facility]. Reference ranges provided are based on published references. This test was developed and its performance characteristics determined by [facility]. It has not been cleared or approved by the [place] Food and Drug Administration. [facility] Cells Counted Total (Body fld) [#] 100 Normal [facility] Comment on above: Order Comment: Body Fluid cell differential reference ranges have not been established by [facility]. Reference ranges provided are based on published references. This test was developed and its performance characteristics determined by [facility]. It has not been cleared or approved by the [place] Food and Drug Administration. Performed By: #### 2 9580-8 #### MICHAEL Ho ([id number]) [facility] ([facility]) [address] [place] [address] Eosinophils/100 WBC Manual cnt (Body fld) 1 % Normal see comment [facility] Comment on above: Order Comment: Body Fluid cell differential reference ranges have not been established by [facility]. Reference ranges provided are based on published references. This test was developed and its performance characteristics determined by [facility]. It has not been cleared or approved by the [place] Food and Drug Administration. Result Comment: BAL Reference Range: <1% Performed By: #### 2 9580-8 #### MICHAEL Ho ([id number]) [facility] ([facility]) [address] [place] [address] Lymphocytes/100 WBC Manual cnt (Body fld) 21 % Normal see comment [facility] Comment on above: Order Comment: Body Fluid cell differential reference ranges have not been established by [facility]. Reference ranges provided are based on published references. This test was developed and its performance characteristics determined by [facility]. It has not been cleared or approved by the [place] Food and Drug Administration. Result Comment: Syno vial/Peritoneal/Pericardial/Pleural Fluid Reference Range: <75% BAL Reference Range: <10% Performed By: #### 2 9580-8 #### MICHAEL Ho ([id number]) [facility] ([facility]) [address] [place] [address] Monocytes+Macrophages/1 00 WBC Manual cnt (Body fld) 53 % Normal see comment [facility] Comment on above: Order Comment: Body Fluid cell differential reference ranges have not been established by [facility]. Reference ranges provided are based on published references. This test was developed and its performance characteristics determined by [facility]. It has not been cleared or approved by the [place] Food and Drug Administration. Result Comment: Syno vial/Peritoneal/Pericardial/Pleural Fluid Reference Range: <70% BAL Reference Range: 87-100% Performed By: #### 2 9580-8 #### MICHAEL Ho ([id number]) [facility] ([facility]) [address] [place] [address] Neutrophils/100 WBC (Body fld) 25 % Normal see comment [facility] Comment on above: Order Comment: Body Fluid cell differential reference ranges have not been established by [facility]. Reference ranges provided are based on published references. This test was developed and its performance characteristics determined by [facility]. It has not been cleared or approved by the [place] Food and Drug Administration. Result Comment: Syno vial/Peritoneal/Pericardial/Pleural Fluid Reference Range: <25% BAL Reference Range: <2% Performed By: #### 2 9580-8 #### MICHAEL Ho ([id number]) [facility] ([facility]) [address] [place], [place] [address] Fungus identifiedon 09-25-19 Fungus identified Cx Nom (Unsp spec) Test: Fungal Culture/Smear Specimen Source: BRONCHO-ALVEOLAR LAVAGE OF RIGHT MIDDLE LOBE Specimen Type: Fluid Specimen Date: 09/24/2024838 Result Date: 09/25/20241114 Result Status: Preliminary result Resulting Lab: [facility] [address] [place], [place] [address] CULTURE Culture in progress, a report will be issued when positive or after 2 weeks of incubation. STAIN No fungal elements seen Normal [facility] Comment on above: Performed By: #### 5 80-1 #### MICHAEL Ho ([id number]) [facility] ([facility]) [address] [place] [address] LEGIONELLA PCR PANELon 09-24 LEGIONELLA PNEUMO PCR, VIRC Not detected Normal Not Detected [facility] Comment on above: Result Comment: This test was developed and its performance characteristics determined by [facility]. It has not been cleared or approved by the [place]. Food and Drug Administration. Results should be used in conjunction with clinical findings, and should not form the sole basis for a diagnosis or treatment decision. Testing Performed at: [place] [address], [place] [address] Construction Specialist: José Harris, PhD BCLeJnny (ABB) CLIA # [id number] FLAG Interpretation: A = Abnormal, H = High, L = Low Performed By: #### L EGPC ####[facility] ([id number])47735 [place] [address] NAVAS.LEGIONELLA PCR, VIRC Not detected Normal Not Detected [facility] Comment on above: Performed By: #### L EGPC ####[facility] ([id number])96100 [place] [address] Mycobacterium sp identifiedo n 09-24-2024 Mycobacterium sp identified Org specific cx Nom (Unsp spec) Test: AFB Culture/Smear Specimen Source: BRONCHO-ALVEOLAR LAVAGE OF RIGHT MIDDLE LOBE Specimen Type: Fluid Specimen Date: 09/24/2024838 Result Date: 09/25/2024858 Result Status: Preliminary result Resulting Lab: [facility] [address] [place] [address] CULTURE Culture in progress and will be examined weekly. A result will be issued either when positive or after 8 weeks incubation. STAIN No acid fast bacilli seen [facility] Comment on above: Performed By: #### 5 43-9 #### MICHAEL Ho ([id number]) [facility] ([facility]) [address] [place], [place] [id number] Non-owner/operator cytology studyon Non-gynecological cytology method study Pathology report.total SEE COMMENT Non-gynecologic Cytology Case: [id number] Authorizing Provider: Dick Nguyen MD Collected: 09/24/2024 0837 Ordering Location: [facility] Received: 09/24/2024 1637 Center Pathologist: [...] Slide(s) initially screened by EDER Marquez at [facility] [address] [place] [phone] By the signature on this report, the [...] A1-2 GMS PCP A1-3 LOG SPECIAL STAIN [facility] Pathologist review Cedrick (Unsp spec) [Interp]on 09-24-2024 PATH REVIEW-CELL CT,FLUID Predominantly macrophages with some foamy and hemosiderin-laden forms. Normal [facility] Comment on above: Result Comment: Elec tronically signed out by Cat Gunter MD on 09/25/24 at 10:24 AM. By the signature on this report, the individual or group listed as making the Final Interpretation/Diagnosis certifies that they have reviewed this case. Performed By: #### 5 9465-5 #### MICHAEL Ho ([id number]) [facility] ([facility]) [address] [place], [place] [address] Surgical pathology studyon 0 09-24-2024 Surgical pathology study Pathology report.total SEE COMMENT Surgical Pathology Case: [id number] Authorizing Provider: Dick Nguyen MD Collected: 09/24/2024 0817 Ordering Location: [facility] Received: 09/24/2024 1142 Center Pathologist: [...] submitted in toto in one cassette. B [facility] XR CHEST 1 VIEWon 09-24-2024 XR CHEST 1 VIEW Interpreted By: Matthias Bunch and Mercado Amiel STUDY: XR CHEST 1 VIEW; 09/24/2024 9:32 am INDICATION: Signs/Symptoms:after bronchoscopy. COMPARISON: CT CHEST HIGH RESOLUTION 07/20/2024 ACCESSION NUMBER(S): [id number] ORDERING CLINICIAN: DICK NGUYEN FINDINGS: AP radiograph [...] Matthias Bunch 09/24/2024 10:10 AM Dictation workstation: [id number] [facility] XR Chest Single viewon 09-24 1. Diffuse bilateral hazy reticulonodular opacities with relatively increased size of right lateral lower lung field, which likely represents infiltrate/consolidation with superimposed interstitial lung findings previously described on CT. I have reviewed the images/study and I agree with the findings as stated by Dr. Aguila Gonzales. Signed by: Matthias Bunch 09/24/2024 10:10 AM Dictation workstation: [id number] Interpreted By: Matthias Bunch and Mercado Amiel STUDY: XR CHEST 1 VIEW; 09/24/2024 9:32 am INDICATION: Signs/Symptoms:after bronchoscopy. COMPARISON: CT CHEST HIGH RESOLUTION 07/20/2024 ACCESSION NUMBER(S): [id number] ORDERING CLINICIAN: DICK NGUYEN FINDINGS: AP radiograph [...] CT CHEST HIGH RESOLUTION 07/20/2024 ACCESSION NUMBER(S): [id number] ORDERING CLINICIAN: DICK NGUYEN FINDINGS: AP radiograph [...] Matthias Bunch 09/24/2024 10:10 AM Dictation workstation: [id number] [facility] Work Phone: Radiology Study observation (narrative) [facility] Work Phone: XR Chest Single viewOrdered By: Matthias Bunch on 09-24-2024 [facility] Work Phone: Endocrinology Visit Reporton 09-16-2024 Endocrinology Visit Report Normal [facility] - Hematology and Cell countsOrdered By: Coreen Gerardo on 09-16-2024 HbA1c (Bld) [Mass fraction] 8.4 % High 4.2-6.3 [facility] Office Visit Reporton 2024 Office Visit Report Normal [facility] Neurology Visit Reporton Neurology Visit Report Normal [facility] Anion gap in Serum or Plasma Ordered By: Khadar Valencia on 08-12-2024 Anion gap [Moles/Vol] 14 mmol/L - [facility] BUN/creatinine ratioOrdered By: Khadar Valencia on 08-12-2024 Urea nitrogen/Creatinine [Mass ratio] 30.2 mg/mg High - [facility] Basic Metabolic Profile (BMP )on 08-12-2024 BUN/CRE 30.2 RATIO High 01-18 [facility] Comment on above: Performed By: #### L 503.9386, L500.2500 ####[facility] [address] [place], [address] Calcium [Mass/Vol] 9.6 mg/dL Normal 7.6-11.0 [facility] Comment on above: Performed By: #### L 503.7505, L500.2500 ####[facility] [address] [place], [address] Chloride [Moles/Vol] 98 mmol/L Normal 98-108 [facility] Comment on above: Performed By: #### L 503.7505, L500.2500 ####[facility] [address] [place], [address] CO2 [Moles/Vol] 25.1 mmol/L Normal 21.0-32.0 [facility] Comment on above: Performed By: #### L 503.7505, L500.2500 ####[facility] [address] [place], [address] Creatinine [Mass/Vol] 1.31 mg/dL High 0.70-1.20 [facility] Comment on above: Performed By: #### L 503.7505, L500.2500 ####[facility] [address] [place], [address] GAP 14 Normal 5-15 [facility] Comment on above: Performed By: #### L 503.7505, L500.2500 ####[facility] [address] [place], [address] GFR/1.73 sq M.predicted among non-blacks MDRD (S/P/Bld) [Vol rate/Area] 62 mL/min/{1.73_m2} Normal >60 [facility] Comment on above: Result Comment: mL/m in/1.73m2 CKD-EPI Creatinine Equation (2020) Performed By: #### L 503.7505, L500.2500 ####[facility] [address] [place], [address] Glucose [Mass/Vol] 104 mg/dL High 70-99 [facility] Comment on above: Performed By: #### L 503.7505, L500.2500 ####[facility] [address] [place], [address] Potassium [Moles/Vol] 4.4 mmol/L Normal 3.3-5.1 [facility] Comment on above: Performed By: #### L 503.7505, L500.2500 ####[facility] [address] [place], [address] Sodium [Moles/Vol] 137 mmol/L Normal 133-145 [facility] Comment on above: Performed By: #### L 503.7505, L500.2500 ####[facility] [address] [place], [address] Urea nitrogen [Mass/Vol] 40 mg/dL High 4-19 [facility] Comment on above: Performed By: #### L 503.7505, L500.2500 ####[facility] [address] [place], [address] Carbon dioxide, total [Moles /volume] in Central venous bloodOrdered By: Khadar Valencia on 08-12-2024 CO2 [Moles/Vol] 25.1 mmol/L 21.0-32.0 [facility] Chest PA and Lateralon 08-12 Chest PA and Lateral Normal [facility] Chloride assayOrdered By: James Valencia on 08-12-2024 Chloride [Moles/Vol] 98 mmol/L 98-108 [facility] Glomerular filtration rate ( GFR) estimation/1.73 sq m using serum, plasma, or whole bOrdered By: Khadar Valencia on 08-12-2024 GFR/1.73 sq M.predicted among non-blacks MDRD (S/P/Bld) [Vol rate/Area] 62 mL/min/{1.73_m2} >60 [facility] Comment on above: mL/min/1.73m2 CKD-EP I Creatinine Equation (2020) L503.7505on 08-12-2024 Natriuretic peptide B (Bld) [Mass/Vol] 626 pg/mL Normal <=900 [facility] Comment on above: Result Comment: Hear t Failure Unlikely: < 300 pg/mLHeart Failure Likely< 50 Years: > 450 pg/mL50-75 Years: > 900 pg/mL>75 Years: > 1800 pg/mL Performed By: #### L 503.7505, L500.2500 ####[facility] [address] [place], [address] Natriuretic peptide.B prohor renea N-Terminal [Mass/volume] in Serum or PlasmaOrdered By: Khadar Valencia on 08-12-2024 Natriuretic peptide.B prohormone N-Terminal [Mass/Vol] 626 pg/mL <900 [facility] [facility] Comment on above: Heart Failure Unlike ly: < 300 pg/mLHeart Failure Likely< 50 Years: > 450 pg/mL50-75 Years: > 900 pg/mL>75 Years: > 1800 pg/mL Potassium measurement (mass/ volume)Ordered By: Khadar Valencia on 08-12-2024 Potassium (Unsp spec) [Mass/Vol] 4.4 mmol/L 3.3-5.1 [facility] Serum creatinine measurement (mass/volume)Ordered By: Khadar Valencia on 08-12-2024 Creatinine [Mass/Vol] 1.31 mg/dL High 0.70-1.20 [facility] Serum glucose measurement (m ass/volume)Ordered By: Khadar Valencia on 08-12-2024 Glucose [Mass/Vol] 104 mg/dL High 70-99 [facility] Serum or plasma calcium grazyna urement (mass/volume)Ordered By: Khadar Valencia on 08-12-2024 Calcium [Mass/Vol] 9.6 mg/dL 7.6-11.0 [facility] Serum or plasma urea nitroge n measurement (mass/volume)Ordered By: Khadar Valencia on 08-12-2024 Urea nitrogen [Mass/Vol] 40 mg/dL High 4-19 [facility] Sodium levelOrdered By: Junior king Demiter on 08-12-2024 Sodium [Moles/Vol] 137 mmol/L 133-145 [facility] Office Visit Reporton 2024 Office Visit Report Normal [facility] ALDOLASEon 08-02-2024 ALDOLASE 4.6 U/L Normal < OR = 8.1 [facility] Comment on above: Performed By: #### 9 4768, 1759 #### [facility] [address], [address] [place] [address] Scientific Helper: Octavio Segovia MD RICARDO CASCADE(RICARDO,IFA W/RFL AN [...] AC-0: Negative International Consensus on RICARDO Patterns (https://doi.org/10.1515/hnio-8395-4235) For additional information, please refer to http://education.Exotel.Lifeproof/faq/MVC815 (This link is being provided for informational/ educational purposes only.) Performed By: #### 9 8012, 1759 #### [facility] [address], [address] [place] [address] Scientific Helper: Octavio Segovia MD ANCA SCREEN WITH MPO [...] other disorders. Performed By: #### 2 27, 1758, 4420, 17992, 809, 25159, 374 #### [facility] [place] [address] [facility], [address] [place] [address] Scientific Helper: Octavio Segovia MD #### [id number], [phone] #### [facility] [facility], [address] [place] [address] Scientific Helper: Alejandra Queen MD,PhD,FADIA #### [phone] #### [facility] [address] [facility] [place], [place] Scientific Helper: Waldemar Billy M.D.,PhD MYELOPEROXIDASE ANTIBODY <1.0 Normal <1.0 [facility] Comment on above: Result Comment: Value [...] Performed By: #### 2 27, 4418, 4420, 61079, 809, 26007, 374 #### [facility] [address], [address] [place] [address] Scientific Helper: Octavio Segovia MD #### 90598, 44887 #### [facility] [facility], [address] [place] [address] Scientific Helper: Alejandra Queen MD,PhD,FADIA #### [id number] #### [facility] [address] [facility] [place], [place] Scientific Helper: Waldemar Billy M.D.,PhD PROTEINASE-3 ANTIBODY <1.0 Normal <1.0 [facility] Comment on above: Result Comment: Value Interpretation <1.0 AI: No Antibody Detected >or=1.0 AI: Antibody Detected Autoantibodies to proteinase-3 (LA-3) are accepted as characteristic for granulomatosis with polyangiitis (GPA, Kaylen's), and are detectable in 95% of the histologically proven cases. The cytoplasmic IFA pattern, (c-ANCA), is based largely on autoantibody to LA-3 which serves as the primary antigen. These autoantibodies are present in active disease. Performed By: #### 2 27, 4418, 4420, 43273, 809, 11540, 374 #### [facility] [address], [address] [place] [address] Scientific Helper: Octavio Segovia MD #### [phone], 43297 #### [facility], [address] [place] Scientific Helper: Alejandra Queen MD,PhD,FADIA #### [id number] #### [facility]/[address] [place], [place] Scientific Helper: Waldemar Billy M.D.,PhD C-REACTIVE PROTEINon 025 CRP [Mass/Vol] 10.6 mg/L High <8.0 [facility] Comment on above: Performed By: #### 2 27, 4418, 4420, 10436, 809, 55821, 374 #### [facility] [address], [address] [place] [address] Scientific Helper: Octavio Segovia MD #### [phone], 37738 #### [facility], [address] [place] [address] Scientific Helper: Alejandra Queen MD,PhD,FADIA #### [id number] #### [facility]/[place] [address] [facility] [address] [place] Scientific Helper: Waldemar Billy M.D.,PhD CREATINE KINASE, TOTALon CREATINE KINASE, TOTAL 46 U/L Normal 22-308 [facility] Comment on above: Performed By: #### 2 27, 4418, 4420, 53418, 809, 46014, 374 #### [facility] [address] [facility], [address] [place] [address] Scientific Helper: Octavio Segovia MD #### 52133, 54379 #### [facility], [address] [place] [address] Scientific Helper: Alejandra Queen MD,PhD,FADIA #### [id number] #### [facility]/[place] [address] [facility] [address] [place] Scientific Helper: Waldemar Billy M.D.,PhD CYCLIC CITRULLINATED PEPTIDE (CCP) AB (IGG)on 08-02-2024 CYCLIC CITRULLINATED PEPTIDE (CCP) AB (IGG) <16 Normal [facility] Comment on above: Result Comment: Refe rence Range Negative: <20 Weak Positive: 20-39 Moderate Positive: 40-59 Strong Positive: >59 Performed By: #### 2 27, 4418, 4420, 03375, 809, 90315, 374 #### [facility] [address] [facility], [address] [place] [address] Scientific Helper: Octavio Segovia MD #### 05854, 29393 #### [facility], [address] [place] [address] Scientific Helper: Alejandra Queen MD,PhD,FADIA #### [id number] #### [facility] [address] [place] Scientific Helper: Waldemar Billy M.D.,PhD EXTENDED MYOSITIS SPECIFIC A [...] analytical performance characteristics have been determined by [employer]. It has not been cleared or approved by the FDA. This assay has been validated pursuant to the CLIA regulations and is used for clinical purposes. Performed By: #### 2 , 2548, 4420, 67533, 809, 59281, 374 #### [employer] [address] [address] Scientific Helper: Octavio Segovia MD #### 58584, 47409 #### [facility]/[place] [address] [place] [address] Scientific Helper: Alejandra Queen MD,PhD,FADIA #### [phone] #### [facility] [address] [facility] [address] Scientific Helper: Waldemar Billy M.D.,PhD EJ AB <11 Normal <11 [facility] Comment on above: Order Comment: FASTI NG:NO FASTING: NO Performed By: #### 2 27, 4418, 4420, 51411, 809, 09827, 374 #### [facility] [address] [place] [address] Scientific Helper: Octavio Segovia MD #### 17722, 25941 #### [facility]/[address] [address] Scientific Helper: Alejandra Queen MD,PhD,FADIA #### [phone] #### [facility]/[address] [place], [place] Scientific Helper: Waldemar Billy M.D.,PhD HMGCR AB (IGG) <2 Normal <20 [facility] Comment on above: Order Comment: FASTI NG:NO FASTING: NO Result Comment: 2-Josfkru-5-Methylglutaryl-Coenzyme A Reductase (HMGCR) Ab is associated with necrotizing myopathy and is often found with the use of statin medications. Rarely, HMGCR Ab associated myositis has also been seen in patients ingesting mushrooms and other foods. Performed By: #### 2 27, 4418, 4420, 37576, 809, 37827, 374 #### [facility] [address], [address] [place] [address] Scientific Helper: Octavio Segovia MD #### 32873, 61518 #### [facility]/[address] Scientific Helper: Alejandra Queen MD,PhD,FADIA #### [id number] #### [facility] [address] [facility] [place], [place] Scientific Helper: Waldemar Billy M.D.,PhD SAMANTHA-1 AB <11 Normal <11 [facility] Comment on above: Order Comment: FASTI NG:NO FASTING: NO Performed By: #### 2 27, 4418, 4420, 02458, 809, 24737, 374 #### [facility] [address], [address] [place] [address] Scientific Helper: Octavio Segovia MD #### 06862, 15897 #### [facility], [address] [facility], [place] Scientific Helper: Alejandra Queen MD,PhD,FADIA #### 95613 #### [facility]/[address] [place] Scientific Helper: Waldemar Billy M.D.,PhD MDA5 AB <11 Normal <11 [facility] Comment on above: Order Comment: FASTI NG:NO FASTING: NO Performed By: #### 2 27, 4418, 4420, 45634, 809, 43302, 374 #### [facility] [address], [address] [place] [address] Scientific Helper: Octavio Segovia MD #### 68360, 44875 #### [facility], [address] [place] Scientific Helper: Alejandra Queen MD,PhD,FADIA #### 89789 #### [facility]/[address] [place] Scientific Helper: Waldemar Billy M.D.,PhD NY-2 ALPHA AB <11 Normal <11 [facility] Comment on above: Order Comment: FASTI NG:NO FASTING: NO Performed By: #### 2 27, 4418, 4420, 97214, 809, 81248, 374 #### [facility] [address], [address] [place] [address] Scientific Helper: Octavio Segovia MD #### 16247, 17612 #### [facility], [address] [place] Scientific Helper: Alejandra Queen MD,PhD,FADIA #### 88103 #### [facility]/[address] [place], [place] Scientific Helper: Waldemar Billy M.D.,PhD [place]-2 BETA AB <11 Normal <11 [facility] Comment on above: Order Comment: FASTI NG:NO FASTING: NO Performed By: #### 2 27, 4418, 4420, 95761, 809, 53390, 374 #### [facility] [address] [facility], [address] [place] [address] Scientific Helper: Octavio Segovia MD #### 65574, 08371 #### [facility], [address] [place] [address] Scientific Helper: Alejandra Queen MD,PhD,FADIA #### [phone] #### [facility] [address] [facility] [place], [place] Scientific Helper: Waldemar Billy M.D.,PhD NXP-2 AB <11 Normal [...] with a rash. Additionally, MSAs to MDA5 ([id number]) have been identified in patients with clinically [...] analytical performance characteristics have been determined by [employer]. It has not been cleared or approved by the FDA. This assay has been validated pursuant to the CLIA regulations and is used for clinical purposes. Performed By: #### 2 27, 4418, 4420, 35710, 809, 71327, 374 #### [facility] [address], [address] [place] [address] Scientific Helper: Octavio Segovia MD #### 66400, 18474 #### [facility], [address] [place] [address] Scientific Helper: Alejandra Queen MD,PhD,FADIA #### 29899 #### [facility]/[place] [address] [facility] [place], [place] Scientific Helper: Waldemar Billy M.D.,PhD AB <11 Normal <11 [facility] Comment on above: Order Comment: FASTI NG:NO FASTING: NO Performed By: #### 2 27, 4418, 4420, 54926, 809, 55027, 374 #### [facility] [place] [address] Scientific Helper: Octavio Segovia MD #### 87482, 51054 #### [facility], [address] [place] [address] Scientific Helper: Alejandra Queen MD,PhD,FADIA #### 44450 #### [facility]/[place] [address] [facility] [place], [place] Scientific Helper: Waldemar Billy M.D.,PhD -12 AB <11 Normal <11 [facility] Comment on above: Order Comment: FASTI NG:NO FASTING: NO Performed By: #### 2 27, 4418, 4420, 35341, 809, 53581, 374 #### [facility] [address] [place], [place] [address] Scientific Helper: Octavio Segovia MD #### 09872, 49537 #### [facility], [address] [facility] [place] Scientific Helper: Alejandra Queen MD,PhD,FADIA #### 39511 #### [facility]/[address] [place], [place] Scientific Helper: Waldemar Billy M.D.,PhD PL-7 AB <11 Normal <11 [facility] Comment on above: Order Comment: FASTI NG:NO FASTING: NO Performed By: #### 2 27, 4418, 4420, 92975, 809, 06814, 374 #### [facility] of [place] [address] [place] [address] , [address] [place], [place] [address] Scientific Helper: Octavio Segovia MD #### 93154, 94542 #### [facility] [address] [place] Scientific Helper: Alejandra Queen MD,PhD,FADIA #### 07161 #### [facility]/[address] [place], [place] Scientific Helper: Waldemar Billy M.D.,PhD [facility] AB <11 Normal <11 [facility] Comment on above: Order Comment: FASTI NG:NO FASTING: NO Performed By: #### 2 27, 4418, 4420, 04020, 809, 16645, 374 #### [facility] of [place] [address] [place] [address] , [address] [place] [address] Scientific Helper: Octavio Segovia MD #### 90816, 17049 #### [facility], [address] [facility], [place] Scientific Helper: Alejandra Queen MD,PhD,FADIA #### 29277 #### [facility]/[place] [address] [facility] [address] [place] Scientific Helper: Waldemar Billy M.D.,PhD TIF1 GAMMA AB <11 Normal <11 [facility] Comment on above: Order Comment: FASTI NG:NO FASTING: NO Performed By: #### 2 27, 4418, 4420, 04296, 809, 75893, 374 #### [facility] [place] [address], [address] [place] [address] Scientific Helper: Octavio Segovia MD #### 72763, 95143 #### [facility], [address] [place], [place] Scientific Helper: Alejandra Queen MD,PhD,FADIA #### 19816 #### [facility]/[place] [address] [facility] [place], [place] Scientific Helper: Waldemar Billy M.D.,PhD HYPERSENSITIVITY PNEUMONITIS SCREENon 08-02-2024 ASPERGILLUS FUMIGATUS Negative Normal NEGATIVE [facility] Comment on above: Performed By: #### 2 27, 4418, 4420, 16748, 809, 77806, 374 #### [facility] [address], [address] [place] [address] Scientific Helper: Octavio Segovia MD #### 30129, 83939 #### [facility], [address] [place], [place] Scientific Helper: Alejandra Queen MD,PhD,FADIA #### 23231 #### [facility] [address] [place] Scientific Helper: Waldemar Billy M.D.,PhD MICROPOLYSPORA FAENI Negative Normal NEGATIVE [facility] Comment on above: Performed By: #### 2 27, 4418, 4420, 12754, 809, 13067, 374 #### [facility] of [address] , [address] [place] [address] Scientific Helper: Octavio Segovia MD #### 90970, 71862 #### [facility], [address] [facility], [place] [address] Scientific Helper: Alejandra Queen MD,PhD,FADIA #### 86492 #### [facility]/[address] [place], [place] Scientific Helper: Waldemar Billy M.D.,PhD PIGEON SERUM Negative Normal NEGATIVE [facility] Comment on above: Performed By: #### 2 27, 4418, 4420, 71911, 809, 22358, 374 #### [facility] [address], [address] [place] [address] Scientific Helper: Octavio Segovia MD #### 59270, 82998 #### [facility], [address] [facility], [place] [address] Scientific Helper: Alejandra Queen MD,PhD,FADIA #### 63188 #### [facility]/[address] [place], [place] Scientific Helper: Waldemar Billy M.D.,PhD S. VIRIDIS Negative Normal NEGATIVE [facility] Comment on above: Result Comment: This test was developed and its analytical performance characteristics have been determined by [employer]. It has not been cleared or approved by the FDA. This assay has been validated pursuant to the CLIA regulations and is used for clinical purposes. Performed By: #### 2 27, 4418, 4420, 49484, 809, 27011, 374 #### [facility] of [place] [address] [address] , [address] [place] [address] Scientific Helper: Octavio Segovia MD #### 43409, 25813 #### [facility], [address] [place], [place] Scientific Helper: Alejandra Queen MD,PhD,FADIA #### 73179 #### [facility]/[address] [place] Scientific Helper: Waldemar Billy M.D.,PhD T. CANDIDUS Negative Normal NEGATIVE [facility] Comment on above: Performed By: #### 2 27, 4418, 4420, 89186, 809, 13804, 374 #### [facility] of [facility] [address], [address] [place] [address] Scientific Helper: Octavio Segovia MD #### 97364, 71961 #### [facility], [address] [place] [address] Scientific Helper: Alejandra Queen MD,PhD,FADIA #### 38293 #### [facility]/[address] [place] Scientific Helper: Waldemar Billy M.D.,PhD T. VULGARIS Negative Normal NEGATIVE [facility] Comment on above: Performed By: #### 2 27, 4418, 4420, 43800, 809, 02226, 374 #### [facility] [address], [address] [place] [address] Scientific Helper: Octavio Segovia MD #### 95018, 95802 #### [facility], [address] [place] Scientific Helper: Alejandra Queen MD,PhD,FADIA #### 82387 #### [facility]/[address] [place] Scientific Helper: Waldemar Billy M.D.,PhD RHEUMATOID FACTORon 08-03-19 25 RHEUMATOID FACTOR 41 IU/mL High <14 [facility] Comment on above: Performed By: #### 2 27, 4418, 4420, 51909, 809, 97775, 374 #### [facility] [address], [address] [place] [address] Scientific Helper: Octavio Segovia MD #### 30213, 22696 #### [facility], [address] [place] [address] Scientific Helper: Alejandra Queen MD,PhD,FADIA #### 32591 #### [facility]/[place] [address] [facility] [place], [place] Scientific Helper: Waldemar Billy M.D.,PhD SED RATE BY MODIFIED WESTERG RENon 08-02-2024 SED RATE BY MODIFIED WESTERGREN 36 mm/h High < OR = 20 [facility] Comment on above: Performed By: #### 2 27, 4418, 4420, 55881, 809, 96737, 374 #### [facility] [address], [address] [place] [address] Scientific Helper: Octavio Segovia MD #### 96669, 06973 #### [facility], [address] [place], [place] Scientific Helper: Alejandra Queen MD,PhD,FADIA #### [id number] #### [facility] [place], [place] Scientific Helper: Waldemar Billy M.D.,PhD TRANSTHORACIC ECHO (TTE) [facility] 07-23-2024 TRANSTHORACIC ECHO (TTE) COMPLETE [facility] [address] [facility], [address], [place] [address] TRANSTHORACIC ECHOCARDIOGRAM REPORT Patient Name: KRUNAL LEOS Reading Physician: [id number] David Nguyễn MD Study Date: 07/23/2024 Ordering Provider: [id number] PADRON MRN/PID: [id number] Fellow: Nurse: Date of /Age: 5 1965 Chess Instructor: Ena hernandez RDCS Gender assigned at M Additional Staff: : Height: 175.26 cm Admit Date: Weight: 141.07 kg Admission Status: Outpatient BSA / BMI: 2.49 m2 / 45.93 kg/m2 Blood Pressure: 157/78 mmHg Department Location: [facility] Study Type: TRANSTHORACIC ECHO (TTE) COMPLETE Diagnosis/ICD: Pulmonary hypertension, unspecified-I27.20 Indication: Pulmonary hypertension CPT Code: Echo Complete w Full Doppler-40467 Study Detail: The following Echo studies were [...] VEINS: PulmV A Revs Dur: 121.00 msec 40944 David Nguyễn MD Electronically signed on 07/24/2024 at 9:17:53 AM Final [facility] CT CHEST HIGH RESOLUTIONon 0 07-20-2024 CT CHEST HIGH RESOLUTION Interpreted By: Rosita Bolaños, STUDY: CT CHEST HIGH RESOLUTION; 07/20/2024 12:56 pm INDICATION: Signs/Symptoms:ILD. COMPARISON: None. ACCESSION NUMBER(S): [id number] ORDERING CLINICIAN: ROSALINO PADRON TECHNIQUE: Using helical [...] Julissa Banuelos 07/20/2024 1:33 PM Dictation workstation: [id number] [facility] CT Cheston 07-20-2024 1. Extensive subpleu [...] Julissa Banuelos 07/20/2024 1:33 PM Dictation workstation: [id number] Interpreted By: Julissa Pleitez, STUDY: CT CHEST HIGH RESOLUTION; 07/20/2024 12:56 pm INDICATION: Signs/Symptoms:ILD. COMPARISON: None. ACCESSION NUMBER(S): [id number] ORDERING CLINICIAN: ROSALINO PADRON TECHNIQUE: Using helical [...] Pete Bolaños MD - 07/20/2024 Interpreted By: Jluissa Bolaños, STUDY: CT CHEST HIGH RESOLUTION; 07/20/2024 12:56 pm INDICATION: Signs/Symptoms:ILD. COMPARISON: None. ACCESSION NUMBER(S): [id number] ORDERING CLINICIAN: ROSALINO PADRON TECHNIQUE: Using helical [...] Julissa Banuelos 07/20/2024 1:33 PM Dictation workstation: [id number] [facility] Work Phone: Radiology Study observation (narrative) [facility] Work Phone: CT ChestOrdered By: Julissa Banuelos on 07-20-2024 [facility] Work Phone: Office Visit Reporton 2024 Office Visit Report [facility] Pul[facility] Reporton Pulmonary Visit Report Normal [facility] Office Visit Reporton 2024 Office Visit Report Normal [facility] 36on 06-01-2024 36 Patient called in as [...] and to seek medical attention immediately. Normal [facility] 12 Lead EKG performed by [facility] on 05-21-2024 12 Lead EKG performed by [facility] Normal [facility] Basic Metabolic Profile (BMP )on 05-21-2024 BUN/CRE 21.2 RATIO High 01-18 [facility] Comment on above: Performed By: #### L 500.2500 ####[facility] [address] [place] [address] [place],Total 9.6 mg/dL Normal 8.5-10.1 [facility] Comment on above: Performed By: #### L 500.2500 ####[facility] [address] [place] [address] Chloride [Moles/Vol] 99 mmol/L Normal 98-107 [facility] Comment on above: Performed By: #### L 500.2500 ####[facility] [address] [place] [id number] CO2 [Moles/Vol] 26.0 mmol/L Normal 21.0-32.0 [facility] Comment on above: Performed By: #### L 500.2500 ####[facility] [address] [place] [id number] Creatinine [Mass/Vol] 1.60 mg/dL High 0.70-1.30 [facility] Comment on above: Result Comment: The validity of the calculated GFR GFRAA in patients over70 years has not been determined. Clinical correlation isessential. Performed By: #### L 500.2500 ####[facility] [address] [place] [id number] EST GFR - AA 57 mL/min Low >60 [facility] Comment on above: Result Comment: Afri can Citizen [place] GFR Calc Performed By: #### L 500.2500 ####[facility] [address] [place], [address] GAP 12 Normal 5-15 [facility] Comment on above: Performed By: #### L 500.2500 ####[facility] [address] [place], [address] GFR/1.73 sq M.predicted among non-blacks MDRD (S/P/Bld) [Vol rate/Area] 47 mL/min/{1.73_m2} Low >60 [facility] Comment on above: Result Comment: Non- GFR Calc Performed By: #### L 500.2500 ####[facility] [address] [place], [address] Glucose [Mass/Vol] 174 mg/dL High 74-106 [facility] Comment on above: Result Comment: Fast ing Glucose result greater than or equal to 126 mg/dLsuggests DIABETES MELLITUS per A.D.A. criteria. Performed By: #### L 500.2500 ####[facility] [address] [place], [address] Potassium [Moles/Vol] 3.8 mmol/L Normal 3.5-5.1 [facility] Comment on above: Performed By: #### L 500.2500 ####[facility] [address] [place], [address] Sodium [Moles/Vol] 136 mmol/L Normal 136-145 [facility] Comment on above: Performed By: #### L 500.2500 ####[facility] [address] [place], [address] Urea nitrogen [Mass/Vol] 34 mg/dL High 7-18 [facility] Comment on above: Performed By: #### L 500.2500 ####[facility] [address] [place], [address] Bilirubin directOrdered By: SAV Rojas on 05-21-2024 Bilirubin.direct [Mass/Vol] 0.32 mg/dL High 0.00-0.30 [facility] Bilirubin, totalOrdered By: SAV Rojas on 05-21-2024 Bilirubin [Mass/Vol] 1.40 mg/dL High 0.20-1.00 [facility] Comment on above: For patients on eltr ombopag therapy, use of Dimension Farwell TBIL is not recommended. Blood urea nitrogen (BUN)/cr eatinine ratioOrdered By: Lydia Segura on 05-21-2024 Urea nitrogen/Creatinine [Mass ratio] 21.2 mg/mg High 10-20 [facility] Carbon dioxide measurementOr dered By: Lydia Segura on 05-21-2024 CO2 [Moles/Vol] 26.0 mmol/L 21.0-32.0 [facility] Cardiology Visit Reporton Cardiology Visit Report Normal [facility] Chloride measurementOrdered By: Lydia Segura on 05-21-2024 Chloride [Moles/Vol] 99 mmol/L 98-107 [facility] Glomerular filtration rate ( GFR) estimationOrdered By: Lydia Segura on 05-21-2024 GFR/1.73 sq M.predicted among non-blacks MDRD (S/P/Bld) [Vol rate/Area] 47 mL/min/{1.73_m2} Low >60 [facility] Comment on above: Non- GFR Calc Glucose measurementOrdered B y: Lydia Segura on 05-21-2024 Glucose [Mass/Vol] 174 mg/dL High 74-106 [facility] Comment on above: Fasting Glucose resu lt greater than or equal to 126 mg/dL suggests DIABETES MELLITUS per A.D.A. criteria. Laboratory - Chemistry and C hemistry - challengeOrdered By: SAV Rojas on 05-21-2024 AST [Catalytic activity/Vol] 18 U/L 15-37 [facility] Liver Profileon 05-21-2024 Albumin [Mass/Vol] 3.4 g/dL Normal 3.2-5.0 [facility] Comment on above: Order Comment: 1 mo. after 1st dose of OFEV, monthly for 1st 3 mo Performed By: #### L 500.3400 ####[facility] [address] [place], [address] ALK P 81 U/L Normal 45-117 [facility] Comment on above: Order Comment: 1 mo. after 1st dose of OFEV, monthly for 1st 3 mo Performed By: #### L 500.3400 ####[facility] [address] [place], [address] ALT [Catalytic activity/Vol] 17 U/L Normal 16-61 [facility] Comment on above: Order Comment: 1 mo. after 1st dose of OFEV, monthly for 1st 3 mo Performed By: #### L 500.3400 ####[facility] [address] [place], [address] AST [Catalytic activity/Vol] 18 U/L Normal 15-37 [facility] Comment on above: Order Comment: 1 mo. after 1st dose of OFEV, monthly for 1st 3 mo Performed By: #### L 500.3400 ####[facility] [address] [place], [address] Bilirubin [Mass/Vol] 1.40 mg/dL High 0.20-1.00 [facility] Comment on above: Order Comment: 1 mo. after 1st dose of OFEV, monthly for 1st 3 mo Result Comment: For patients on eltrombopag therapy, use of Dimension Farwell TBIL is not recommended. Performed By: #### L 500.3400 ####[facility] [address] [place], [address] Bilirubin.direct [Mass/Vol] 0.32 mg/dL High 0.00-0.30 [facility] Comment on above: Order Comment: 1 mo. after 1st dose of OFEV, monthly for 1st 3 mo Performed By: #### L 500.3400 ####[facility] [address] [place], [place], [address] Globulin (S) [Mass/Vol] 5.1 g/dL High 2.2-4.2 [facility] Comment on above: Order Comment: 1 mo. after 1st dose of OFEV, monthly for 1st 3 mo Performed By: #### L 500.3400 ####[facility] [address] [place], [address] T PROT 8.5 g/dL High 6.4-8.2 [facility] Comment on above: Order Comment: 1 mo. after 1st dose of OFEV, monthly for 1st 3 mo Performed By: #### L 500.3400 ####[facility] [address] [place], [place], [id number] No Panel InformationOrdered By: SAV Rojas on 05-21-2024 18 U/L 15-37 [facility] Potassium measurementOrdered By: Lydia Segura on 05-21-2024 Potassium [Moles/Vol] 3.8 mmol/L 3.5-5.1 [facility] Serum anion gap measurementO rdered By: Lydia Segura on 05-21-2024 Anion gap [Moles/Vol] 12 mmol/L 5-15 [facility] Serum globulin measurementOr dered By: SAV Rojas on 05-21-2024 Globulin (S) [Mass/Vol] 5.1 g/dL High 2.2-4.2 [facility] Serum or plasma alanine briscoe otransferase (ALT) measurementOrdered By: SAV Rojas on 05-21-2024 ALT [Catalytic activity/Vol] 17 U/L 16-61 [facility] Serum or plasma albumin grazyna urement (mass/volume)Ordered By: SAV Rojas on 05-21-2024 Albumin [Mass/Vol] 3.4 g/dL 3.2-5.0 [facility] Serum or plasma alkaline benjamin sphatase measurementOrdered By: SAV Rojas on 05-21-2024 ALP [Catalytic activity/Vol] 81 U/L 45-117 [facility] Serum or plasma calcium grazyna urement (mass/volume)Ordered By: Lydia Segura on 05-21-2024 Calcium [Mass/Vol] 9.6 mg/dL 8.5-10.1 [facility] Serum or plasma creatinine m easurement (mass/volume)Ordered By: Lydia Segura on 05-21-2024 Creatinine [Mass/Vol] 1.60 mg/dL High 0.70-1.30 [facility] Comment on above: The validity of the calculated GFR & GFRAA in patients over 70 years has not been determined. Clinical correlation is essential. Serum or plasma urea nitroge n measurement (mass/volume)Ordered By: Lydia Segura on 05-21-2024 Urea nitrogen [Mass/Vol] 34 mg/dL High 7-18 [facility] Sodium levelOrdered By: Macho Segura on 05-21-2024 Sodium [Moles/Vol] 136 mmol/L 136-145 [facility] Total proteinOrdered By: SAV Rojas on 05-21-2024 Protein [Mass/Vol] 8.5 g/dL High 6.4-8.2 [facility] 36on 05-13-2024 36 Patient lvm with questions about what medications he should be taking post op. I returned his call but had to [facility] with call back number. [facility] 36on 05-08-2024 36 Spoke with Mr. [...] 1 year. Sooner prstan Culp MD Normal [facility] ECG 12-LEADon 05-07-2024 ECG 12-LEAD IMPRESSION: Sinus rhythm Atrial premature complex LVH with IVCD and secondary repol abnrm Inferior infarct, age indeterminate Electronically Signed On 05-07-2024 10:34:37 EST by Krunal Allen Normal [facility] APTTon 05-06-2024 aPTT Coag (Bld) [Time] 22.1 s Normal 20.0-30.5 [facility] Comment on above: Result Comment: DAPHNE Lang COMMENTS: NOTE: The therapeutic time for Heparin anticoagulation, based on Xa activity inhibition, is an APTT of 46-80 seconds. Performed By: #### L AB320, [id number] ####Scientific Helper: RADHA SIMMONS ([phone])[facility] ([facility])[address] [place] [address] BASIC METABOLIC PANELon Anion gap [Moles/Vol] 9 mmol/L Normal 3-13 [facility] Comment on above: Performed By: #### L AB15 ####Scientific Helper: RADHA SIMMONS ([phone])[facility])[address] [place] [address] Calcium [Mass/Vol] 8.5 mg/dL Low 8.8-10.0 [facility] Comment on above: Performed By: #### L AB15 ####Scientific Helper: RADHA SIMMONS ([phone])[facility] ([facility])[address] [place] [address] [place] Chloride [Moles/Vol] 103 mmol/L Normal 98-107 [facility] Comment on above: Performed By: #### L AB15 ####Scientific Helper: RADHA SIMMONS ([phone])[facility] ([facility])[address] [place] [address] CO2 [Moles/Vol] 22 mmol/L Normal 22-29 [facility] Comment on above: Performed By: #### L AB15 ####Scientific Helper: RADHA SIMMONS ([phone])[facility])[address] [place] [address] Creatinine [Mass/Vol] 0.96 mg/dL Normal 0.72-1.25 [facility] Comment on above: Performed By: #### L AB15 ####Scientific Helper: RADHA SIMMONS ([phone])[facility])[address] [place] [address] GLOMERULAR FILTRATION RATE ML/MIN/1.73 SQ M.PREDICTED >90.0 Normal >60.0 [facility] Comment on above: Result Comment: Calc ulation based on the Chronic Kidney Disease Epidemiology Collaboration (CKD-EPI) equation refit without adjustment for race Performed By: #### L AB15 ####Scientific Helper: RADHA SIMMONS ([phone])[facility])[address] [place] [address] Glucose [Mass/Vol] 107 mg/dL High 74-100 [facility] Comment on above: Performed By: #### L AB15 ####Scientific Helper: RADHA SIMMONS ([phone])[facility])[address] [place] [address] Potassium [Moles/Vol] 3.9 mmol/L Normal 3.5-5.1 [facility] Comment on above: Result Comment: TC Significant interference from hemolysis. Result integrity compromised. Interpret with caution. Performed By: #### L AB15 ####Scientific Helper: RADHA SIMMONS ([phone])[facility])[address] [place] [address] Sodium [Moles/Vol] 134 mmol/L Low 136-145 [facility] Comment on above: Performed By: #### L AB15 ####Scientific Helper: RADHA SIMMONS ([phone])[facility])[address] [place] [address] Urea nitrogen [Mass/Vol] 31 mg/dL High 9-23 [facility] Comment on above: Performed By: #### L AB15 ####Scientific Helper: RADHA SIMMONS ([phone])[facility] ([facility])[address] [place] [address] Basic metabolic 1998 panelon 05-06-2024 Anion gap [Moles/Vol] 9 mmol/L 3 - 13 mmol/L [facility] Calcium [Mass/Vol] 8.5 mg/dL Low 8.8 - 10. 0 mg/dL [facility] Chloride [Moles/Vol] 103 mmol/L 98 - 10 7 mmol/L [facility] CO2 [Moles/Vol] 22 mmol/L 22 - 29 mmol/L [facility] Creatinine [Mass/Vol] 0.96 mg/dL 0.72 - 1.25 mg/dL [facility] GFR/1.73 sq M.predicted (S/P/Bld) [Vol rate/Area] - PINF [facility] Comment on above: Calculation based on the Chronic Kidney Disease Epidemiology Collaboration (CKD-EPI) equation refit without adjustment for race Glucose [Mass/Vol] 107 mg/dL High 74 - 100 mg/dL [facility] Interpretation and review of laboratory results Abnormal [facility] Potassium [Moles/Vol] 3.9 mmol/L 3.5 - 5.1 mmol/L [facility] Comment on above: TC Significant interference from hemolysis. Result integrity compromised. Interpret with caution. Sodium [Moles/Vol] 134 mmol/L Low 136 - 145 mmol/L [facility] Urea nitrogen [Mass/Vol] 31 mg/dL High 9 - 23 mg/dL [facility] CBC (HEMOGRAM)on 05-06-2024 Erythrocyte distribution width (RBC) [Ratio] 20.8 % High 11.5-15.0 [facility] Comment on above: Performed By: #### L AB294 ####Scientific Helper: RADHA SIMMONS ([phone])[facility] ([facility])[address] [place] [address] Hematocrit (Bld) [Volume fraction] 30.1 % Low 40.0-52.0 [facility] Comment on above: Performed By: #### L AB294 ####Scientific Helper: RADHA SIMMONS ([phone])[facility] ([facility])[address] [place] [address] Hemoglobin (Bld) [Mass/Vol] 9.0 g/dL Low 13.0-18.0 [facility] Comment on above: Performed By: #### L AB294 ####Scientific Helper: RADHA SIMMONS ([phone])[facility] ([facility])[address] [place] [address] MCH (RBC) [Entitic mass] 22.5 pg Low 26.0-34.0 [facility] Comment on above: Performed By: #### L AB294 ####Scientific Helper: RADHA SIMMONS ([phone])[facility] ([facility])[address] [place] [address] MCHC 29.9 % Low 30.5-36.0 [facility] Comment on above: Performed By: #### L AB294 ####Scientific Helper: RADHA SIMMONS ([phone])[facility] ([facility])[address] [place] [address] MCV (RBC) [Entitic vol] 75.3 fL Low 77.0-99.0 S [facility] Comment on above: Performed By: #### L AB294 ####Scientific Helper: RADHA SIMMONS ([phone])[facility])[address] [place] [address] Platelet mean volume (Bld) [Entitic vol] 10.2 fL Normal 9.0-12.7 [facility] Comment on above: Performed By: #### L AB294 ####Scientific Helper: RADHA SIMMONS ([phone])[facility] ([facility])[address] [place] [address] Platelets (Bld) [#/Vol] 243 10*3/uL Normal 140-440 [facility] Comment on above: Performed By: #### L AB294 ####Scientific Helper: RADHA SIMMONS ([phone])[facility] ([facility])[address] [place] [address] RBC (Bld) [#/Vol] 4.00 10*6/uL Low 4.40-5.90 [facility] Comment on above: Performed By: #### L AB294 ####Scientific Helper: RADHA SIMMONS ([phone])[facility] ([facility])[address] [place] [address] WBC (Bld) [#/Vol] 11.1 10*3/uL High 3.6-10.7 [facility] Comment on above: Performed By: #### L [id number] ####Scientific Helper: RADHA SIMMONS ([id number])[facility] ([facility])[address] [place] [address] CBC panel Auto (Bld)Ordered By: Krupa Rodriguez on 05-06-2024 Erythrocyte distribution width (RBC) [Ratio] 20.8 % High 11.5 - 15.0 % [facility] Hematocrit (Bld) [Volume fraction] 30.1 % Low 40.0 - 52.0 % [facility] Hemoglobin (Bld) [Mass/Vol] 9 g/dL Low 13.0 - 18.0 g/dL [facility] Interpretation and review of laboratory results Abnormal [facility] MCH (RBC) [Entitic mass] 22.5 pg Low 26.0 - 34.0 pg [facility] MCHC (RBC) [Mass/Vol] 29.9 % Low 30.5 - 36.0 % [facility] MCV (RBC) [Entitic vol] 75.3 fL Low 77.0 - 99.0 fL [facility] Platelet mean volume (Bld) [Entitic vol] 10.2 fL 9.0 - 12.7 fL [facility] Platelets (Bld) [#/Vol] 243 10*3/uL 140 - 440 10*3/uL [facility] RBC (Bld) [#/Vol] 4 10*6/uL Low 4.40 - 5.90 10*6/uL [facility] WBC (Bld) [#/Vol] 11.1 10*3/uL High 3.6 - 10.7 10*3/uL [facility] Consulton 05-06-2024 Consult CONSULT NOTE: [...] PLAN: 1. Obtain P2 Y12 study 2. Tracy Brilinta 90 mg twice daily x 30 [...] 10 to 15 minutes. Was hospitalized at [place] and had Plavix added at that time. [...] Symptoms resolved. He was again hospitalized at [facility]. No medication changes were made. April [...] Pt denie (more content not included)... Normal [facility] Laboratory - Coagulationon 0 05-06-2024 PT Coag (Bld) [Time] 10.9 s 9.0 - 1 2.0 s [facility] No Panel InformationOrdered By: Ana Maria Mancini on 05-06-2024 Interpretation and review of laboratory results Normal [facility] PRU Test (P2Y12) 211 180 - PINF [facility] Jose Luis ben Comment on above: >180 - 376 PRU [P2Y1 2 Reaction Units] - No drug present 10-180 PRU [P2Y12 Reaction Units] - Decreased platelet reactivity to P2Y12 inhibitor. [facility] No Panel Informationon 05-06 Interpretation and review of laboratory results Normal [facility] Nursing Noteon 05-06-2024 Nursing Note Phase 2 care complet ed. Iv removed and dc instructions provided. Will dc to home with family Right groin site benign and neuro unchanged NIH 0 Normal [facility] Nursing Note Patient arrived from home, Dr. Culp in to speak with the patient regarding DCA with possible carotid stenting, consent obtained. Patient was placed supine on exam table prepped and draped in sterile fashion. Telemetry monitors placed, sedation provided by TONE ARTIST APPRENTICE. Patient tolerated procedure well. Transfer to ICU. Normal [facility] PROTHROMBIN TIMEon INR Coag (PPP) [Relative time] 1.0 {INR} Normal 0.9-1.1 [facility] Comment on above: Result Comment: Luciano mmended [...] Myocardial Infarction Performed By: #### L AB320, [id number] ####Scientific Helper: RADHA SIMMONS ([phone])[facility] ([address] PT Coag (PPP) [Time] 10.9 s Normal 9.0-12.0 [facility] Comment on above: Performed By: #### L AB320, [id number] ####Scientific Helper: RADHA SIMMONS ([id number])[facility] [employer] [facility] ([employer])[address] [id number] [place] PRU TEST (P2Y12)on 5 PRU TEST (P2Y12) 211 Normal >=180 [facility] Comment on above: Result Comment: >180 - 376 PRU [P2Y12 Reaction Units] - No drug present 10-180 PRU [P2Y12 Reaction Units] - Decreased platelet reactivity to P2Y12 inhibitor. Performed By: #### L [id number] ####Scientific Helper: RADHA SIMMONS ([phone])[facility] [employer] [facility] ([employer])[address] [id number] [facility] PT Coag (Bld) [Time]on 05-06 INR Coag (PPP) [Relative time] 1 {INR} 0.9 - 1.1 [facility] [employer] Comment on above: Recommended Anticoag ulant Therapy: [...] Electronically Signed Date/Time: 05/06/2024 3:33 PM [facility] Patient Name: KRUNAL LEOS : 1965 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 He has had multiple events despite treatment with Eliquis (for atrial fibrillation), ASA and clopidogrel. The most recent event was 2 weeks ago, and he follows in [place]. CTA was concerning for left ICA severe stenosis and he presented for conventional angiography to evaluate and treat carotid stenosis if present and further evaluate right MCA stenosis. Consent: The benefits, alternatives, and risks to the procedure including but not limited to stroke, bleed, infection, dissection, pseudoaneurysm, [place], renal failure, radiation injury, hair loss, contrast [...] 4F dilator was exchanged for a 5 Gambian short sheath over a guidewire. The short [...] Patient Name: KRUNAL LEOS : 1965 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 He has had multiple events despite treatment with Eliquis (for atrial fibrillation), ASA and clopidogrel. The most recent event was 2 weeks ago, and he follows in [place]. CTA was concerning for left ICA severe stenosis and he presented for conventional angiography to evaluate and treat carotid stenosis if present and further evaluate right MCA stenosis. Consent: The benefits, alternatives, and risks to the procedure including but not limited to stroke, bleed, infection, dissection, pseudoaneurysm, [place], renal failure, radiation injury, hair loss, contrast [...] 4F dilator was exchanged for a 5 Gambian short sheath over a guidewire. The short sheath was connected to heparinized saline flush. Fluoroscopy was performed over the right femoral artery in the right anterior oblique projection. The point of entry of the sheath is at the femoral bifurcation. The femoral artery is well visualized and normal. Through the short sheath, a 100 cm vert. angle [employer] diagnostic catheter was advanced over a 0.018 [...] AP and late (more content not included)... [facility] Radiology Study observation (narrative) [facility] alth RFA Cerebral arteries Bilate ral Views W contrast IAOrdered By: Oziel Culp on 05-06-2024 [facility] [employer] Work Phone: aPTT Coag (Bld) [Time]on aPTT Coag (PPP) [Time] 22.1 s 20.0 - 30.5 s [facility] NOTE: The therapeuti c time for Heparin anticoagulation, based on Xa activity inhibition, is an APTT of 46-80 seconds. [facility] Absolute lymphocyte countOrd ered By: Rito Lundberg on 05-05-2024 Lymphocytes Auto (Unsp spec) [#/Vol] 1.51 10*3/uL 0.83-4.51 [facility] Automated lymphocyte count a s percentage of total leukocytesOrdered By: Rito Lundberg on 05-05-2024 Lymphocytes/100 WBC Auto (Unsp spec) 11.3 % Low 19-41 [facility] Basophil percentageOrdered B y: Rito Lundberg on 05-05-2024 Basophils/100 WBC (Bld) 0.4 % 0-1 [facility] Blood manual differential co mment interpretation (narrative result)Ordered By: Rito Lundberg on 05-05-2024 Manual differential comment Cedrick (Bld) [Interp] SCANNED [facility] CBC W/Diff, Automatedon OVALOCYTE 2+ Normal [facility] Comment on above: Performed By: #### L 503.6030, L503.0105, L100.0100, L503.6550 ####[facility] [address] [place], [address] Anisocytosis Ql (Bld) 2+ Normal [facility] Comment on above: Performed By: #### L 503.6030, L503.0105, L100.0100, L503.6550 ####[facility] [address] [place], [address] MICROCYTIC 1+ Normal [facility] Comment on above: Performed By: #### L 503.6030, L503.0105, L100.0100, L503.6550 ####[facility] [address] [place], [address] PLT EST ADEQUATE Normal ADEQ [facility] Comment on above: Performed By: #### L 503.6030, L503.0105, L100.0100, L503.6550 ####[facility] [address] [place], [address] SMEAR COMMENT SCANNED Normal [facility] Comment on above: Performed By: #### L 503.6030, L503.0105, L100.0100, L503.6550 ####[facility] [address] [place], [address] Eosinophil percentageOrdered By: Rito Lundberg on 05-05-2024 Eosinophils/100 WBC (Bld) 2.1 % 0-5 [facility] Erythrocyte distribution wid th ratioOrdered By: Rito Lundberg on 05-05-2024 Erythrocyte distribution width (RBC) [Ratio] 21.0 % High 11.6-14.6 [facility] Erythrocyte distribution wid th standard deviationOrdered By: [facility] Hospitalearlene Lundberg on 05-05-2024 Erythrocyte distribution width (RBC) [Ratio] 56.7 fl High 35.1-43.9 [facility] Ferritinon 05-05-2024 Ferritin [Mass/Vol] 134 ng/mL Normal 26-388 [facility] Comment on above: Performed By: #### L 503.6030, L503.0105, L100.0100, L503.6550 ####[facility] [address] [place], [address] Hematocrit Auto (Bld) [Volum e fraction]Ordered By: Rito Lundberg on 05-05-2024 Hematocrit (Bld) [Volume fraction] 31.6 % Low 40-54 [facility] Hemoglobin measurementOrdere d By: Rito Lundberg on 05-05-2024 Hemoglobin (Bld) [Mass/Vol] 9.3 g/dL Low 13.0-16.5 [facility] Immature granulocytes/100 WB C Auto (Bld)Ordered By: Rito Lundberg on 05-05-2024 Immature granulocytes/100 WBC (Bld) 0.600 % 0.0-0.9 [facility] Iron measurement (mass/mass) Ordered By: Rito Lundberg on 05-05-2024 Iron (Unsp spec) [Mass/Mass] 74 ug/dL 65-175 [facility] Iron+Iron Binding Capacityon 05-05-2024 Iron [Mass/Vol] 74 ug/dL Normal 65-175 [facility] Comment on above: Performed By: #### L 503.6030, L503.0105, L100.0100, L503.6550 ####[facility] [address] [place], [address] IRON SATURATION 22.0 Normal 15.0-55.0 [facility] Comment on above: Performed By: #### L 503.6030, L503.0105, L100.0100, L503.6550 ####[facility] [address] [place], [address] TIBC 337 ug/dL Normal 250-450 [facility] Comment on above: Performed By: #### L 503.6030, L503.0105, L100.0100, L503.6550 ####[facility] [address] [place], [address] MCV (mean corpuscular volume ) determinationOrdered By: Rito Lundberg on 05-05-2024 MCV (RBC) [Entitic vol] 76.5 fL Low 80-94 [facility] Mean corpuscular hemoglobin (MCH) determinationOrdered By: Rito Lundberg on 05-05-2024 MCH (RBC) [Entitic mass] 22.5 pg Low 27.0-32.0 [facility] Monocyte percentageOrdered B y: Rito Lundberg on 05-05-2024 Monocytes/100 WBC (Bld) 8.1 % 0-10 [facility] Neutrophil percentageOrdered By: Rito Lundberg on 05-05-2024 Neutrophils/100 WBC (Bld) 77.5 % High 47-70 [facility] No Panel InformationOrdered By: Rito Lundberg on 05-05-2024 2+ [facility] Nursing Noteon 05-05-2024 Nursing Note Report given to MARIO marsh, neuro assessment completed along with groin site check. Normal [facility] Oncology Visit Reporton Oncology Visit Report Normal [facility] Ovalocyte detectionOrdered B y: Rito Lundberg on 05-05-2024 Ovalocytes LM Ql (Bld) 2+ [facility] Platelet countOrdered By: Chanell Lundberg on 05-05-2024 Platelets (Bld) [#/Vol] 303 10*3/uL 150-450 [facility] Platelet estimateOrdered By: Rito Lundberg on 05-05-2024 Platelets LM Ql (Bld) ADEQUATE ADEQ [facility] RBC Auto (Bld) [#/Vol]Ordere d By: Rito Lundberg on 05-05-2024 RBC (Bld) [#/Vol] 4.13 10*6/uL Low 4.6-6.2 [facility] Serum or plasma iron saturat ion measurement (mass fraction)Ordered By: Rito Lundberg on 05-05-2024 Iron saturation [Mass fraction] 22.0 % 15.0-55.0 [facility] Vitamin B12on 05-05-2024 Cobalamin (Vitamin B12) [Mass/Vol] 1259 pg/mL High 211-911 [facility] Comment on above: Performed By: #### L 503.6030, L503.0105, L100.0100, L503.6550 ####[facility] [address] [place], [address] Vitamin B12 measurementOrder ed By: Rito Lundberg on 05-05-2024 Cobalamin (Vitamin B12) [Mass/Vol] 1259 pg/mL High 211-911 [facility] White blood cell (WBC) count Ordered By: Rito Lundberg on 05-05-2024 WBC (Bld) [#/Vol] 13.3 10*3/uL High 4.4-11.0 [facility] Pulmonary Visit Reporton Pulmonary Visit Report Normal [facility] Cardiology Visit Reporton Cardiology Visit Report Normal [facility] MR/BMS.BVSon 04-30-2024 MR/BMS.BVS Normal [facility] Office Visit Reporton 2024 Office Visit Report Normal [facility] 36on 04-27-2024 36 Spoke with patient [...] iv contrast dye, iodine, or shellfish. Normal [facility] Office Visiton 04-27-2024 Follow-up visit [id number] Krunal Leos 1965 M Date Provider Department Center 04/27/2024 [id number], SUZY [facility] None No family history on file Level of Service:88606 LA OFFICE/OUTPATIENT ESTABLISHED MOD [facility] 30 MIN Reason for Visit and Comments: Follow-up [011880] - discuss carotid duplex 04/06/23 [facility] Progress Noteon 04-27-2024 Progress Note Vascular [...] Provider, Continuous Glucose Sensor (Dexcom G6 Sensor) [facility] Dexcom G6 Sensor Mis, USE DIRECTED FOR CONTINUOUS BLOOD GLUCOSE MONITORING, CHANGE SENSOR EVERY 10 DAYS 10/01/23 Historical Provider, dapagliflozin (Farxiga) 5 MG tablet Take 1 tablet (5 mg) by mouth daily. Do not start before October 06, 2023. 10/06/23 01/06/24 Harmeet Satllworth MD dilTIAZem CD (Cardizem CD) 120 MG [...] Stallworth MD ergocalciferol (Vitamin D2) 1.25 MG (20756 UT) capsule Take 1 capsule by mouth [...] 2023. 10/06/23 01/06/24 Harmeet Stallworth MD HYDROcodone-acetaminophen ([place]) 5-325 MG tablet Take 1 tablet by [...] MD pantop (more content not included)... Normal [facility] Vitamin B12on 04-27-2024 Cobalamin (Vitamin B12) [Mass/Vol] 572 pg/mL Normal 211-911 [facility] Comment on above: Performed By: #### L 100.0100, L100.9950, L503.6550, L503.0105, L503.6030 ####[facility] [address] [place], [place], [address] Absolute lymphocyte countOrd ered By: Cookie Arabella on 04-25-2024 Lymphocytes Auto (Unsp spec) [#/Vol] 1.80 10*3/uL 0.83-4.51 [facility] Automated lymphocyte count a s percentage of total leukocytesOrdered By: Cookie Arabella on 04-25-2024 Lymphocytes/100 WBC Auto (Unsp spec) 14.4 % Low 19-41 [facility] Basophil percentageOrdered B y: on 04-25-2024 Basophils/100 WBC (Bld) 0.5 % 0-1 [facility] Bedside Glucoseon 04-25-2024 FINGERSTICK GLU 252 mg/dL High 74-106 [facility] Comment on above: Result Comment: ANI GEMENT OF PATIENT CARE PER NURSING PROTOCOL Performed By: #### L 501.080 ####[facility] [address] [place], [address] FINGERSTICK GLU 160 mg/dL High 74-106 [facility] Comment on above: Result Comment: ANI GEMENT OF PATIENT CARE PER NURSING PROTOCOL Performed By: #### L 501.080 ####[facility] [address] [place], [address] FINGERSTICK GLU 249 mg/dL High 74-106 [facility] Comment on above: Result Comment: ANI BRADFORD OF PATIENT CARE PER NURSING PROTOCOL Performed By: #### L 501.080 ####[facility] [address] [place], [address] Bilirubin, totalOrdered By: Cookie White on 04-25-2024 Bilirubin [Mass/Vol] 0.60 mg/dL 0.20-1.00 [facility] Blood manual differential co mment interpretation (narrative result)Ordered By: White on 04-25-2024 Manual differential comment Cedrick (Bld) [Interp] SCANNED [facility] Blood polychromasia detectio n by light microscopyOrdered By: White on 04-25-2024 Polychromasia LM Ql (Bld) RARE [facility] Blood schistocyte detection by light microscopyOrdered By: White on 04-25-2024 Schistocytes LM Ql (Bld) RARE [facility] Brain without Contraston Brain without Contrast Normal [facility] CBC W/Diff, Automatedon 04-02 [employer] CELLS RARE Normal [facility] Comment on above: Performed By: #### L 500.4100, L501.9985, L500.4050, L501.9520, L100.0100 ####[facility] [address] [place], [address] MICROCYTIC 1+ Normal [facility] Comment on above: Performed By: #### L 500.4100, L501.9985, L500.4050, L501.9520, L100.0100 ####[facility] [address] [place], [address] SCHISTOCYTES RARE Normal [facility] Comment on above: Performed By: #### L 500.4100, L501.9985, L500.4050, L501.9520, L100.0100 ####[facility] [address] [place], [address] POLYCHROMASIA RARE Normal [facility] Comment on above: Performed By: #### L 500.4100, L501.9985, L500.4050, L501.9520, L100.0100 ####[facility] [address] [place], [address] SMEAR COMMENT SCANNED Normal [facility] Comment on above: Performed By: #### L 500.4100, L501.9985, L500.4050, L501.9520, L100.0100 ####[facility] [address] [place], [address] Carbon dioxide measurementOr dered By: Cookie Bell on 04-25-2024 CO2 [Moles/Vol] 26.0 mmol/L 21.0-32.0 [facility] Chloride measurementOrdered By: Cookie Bell on 04-25-2024 Chloride [Moles/Vol] 103 mmol/L 98-107 [facility] Comprehensive Metabolic Prof ilon 04-25-2024 Albumin [Mass/Vol] 2.8 g/dL Low 3.2-5.0 [facility] Comment on above: Performed By: #### L 500.4100, L501.9985, L500.4050, L501.9520, L100.0100 ####[facility] [address] [place], [address] Albumin/Globulin [Mass ratio] 0.7 {ratio} Low 0.9-2.4 [facility] Comment on above: Performed By: #### L 500.4100, L501.9985, L500.4050, L501.9520, L100.0100 ####[facility] [address] [place], [address] ALK P 69 U/L Normal 45-117 [facility] Comment on above: Performed By: #### L 500.4100, L501.9985, L500.4050, L501.9520, L100.0100 ####[facility] [address] [place], [address] ALT [Catalytic activity/Vol] 18 U/L Normal 16-61 [facility] Comment on above: Performed By: #### L 500.4100, L501.9985, L500.4050, L501.9520, L100.0100 ####[facility] [address] [place], [address] AST [Catalytic activity/Vol] 13 U/L Low 15-37 [facility] Comment on above: Performed By: #### L 500.4100, L501.9985, L500.4050, L501.9520, L100.0100 ####[facility] [address] [place], [address] Bilirubin [Mass/Vol] 0.60 mg/dL Normal 0.20-1.00 [facility] Comment on above: Result Comment: For patients on eltrombopag therapy, use of Dimension [place] TBIL is not recommended. Performed By: #### L 500.4100, L501.9985, L500.4050, L501.9520, L100.0100 ####[facility] [address] [place], [address] BUN/CRE 26.3 RATIO High 10-20 [facility] Comment on above: Performed By: #### L 500.4100, L501.9985, L500.4050, L501.9520, L100.0100 ####[facility] [address] [place], [address] CA,Total 8.5 mg/dL Normal 8.5-10.1 [facility] Comment on above: Performed By: #### L 500.4100, L501.9985, L500.4050, L501.9520, L100.0100 ####[facility] [address] [place], [address] Chloride [Moles/Vol] 103 mmol/L Normal 98-107 [facility] Comment on above: Performed By: #### L 500.4100, L501.9985, L500.4050, L501.9520, L100.0100 ####[facility] [address] [place], [address] CO2 [Moles/Vol] 26.0 mmol/L Normal 21.0-32.0 [facility] Comment on above: Performed By: #### L 500.4100, L501.9985, L500.4050, L501.9520, L100.0100 ####[facility] [address] [place], [address] Creatinine [Mass/Vol] 1.14 mg/dL Normal 0.70-1.30 [facility] Comment on above: Result Comment: The validity of the calculated GFR GFRAA in patients over70 years has not been determined. Clinical correlation isessential. Performed By: #### L 500.4100, L501.9985, L500.4050, L501.9520, L100.0100 ####[facility] [address] [place], [address] ECRCL 94.76 ml/min Normal [facility] Comment on above: Performed By: #### L 500.4100, L501.9985, L500.4050, L501.9520, L100.0100 ####[facility] [address] [place], [address] EST GFR - AA 84 mL/min Normal >60 [facility] Comment on above: Result Comment: Afri can [place] GFR Calc Performed By: #### L 500.4100, L501.9985, L500.4050, L501.9520, L100.0100 ####[facility] [address] [place], [address] GAP 8 Normal 5-15 [facility] Comment on above: Performed By: #### L 500.4100, L501.9985, L500.4050, L501.9520, L100.0100 ####[facility] [address] [place], [address] GFR/1.73 sq M.predicted among non-blacks MDRD (S/P/Bld) [Vol rate/Area] 70 mL/min/{1.73_m2} Normal >60 [facility] Comment on above: Result Comment: Non- GFR Calc Performed By: #### L 500.4100, L501.9985, L500.4050, L501.9520, L100.0100 ####[facility] [address] [place], [address] Globulin (S) [Mass/Vol] 4.0 g/dL Normal 2.2-4.2 [facility] Comment on above: Performed By: #### L 500.4100, L501.9985, L500.4050, L501.9520, L100.0100 ####[facility] [address] [place], [address] Glucose [Mass/Vol] 172 mg/dL High 74-106 [facility] Comment on above: Result Comment: Fast ing Glucose result greater than or equal to 126 mg/dLsuggests DIABETES MELLITUS per A.D.A. criteria. Performed By: #### L 500.4100, L501.9985, L500.4050, L501.9520, L100.0100 ####[facility] [address] [place], [address] Potassium [Moles/Vol] 3.7 mmol/L Normal 3.5-5.1 [facility] Comment on above: Performed By: #### L 500.4100, L501.9985, L500.4050, L501.9520, L100.0100 ####[facility] [address] [place], [address] Sodium [Moles/Vol] 137 mmol/L Normal 136-145 [facility] Comment on above: Performed By: #### L 500.4100, L501.9985, L500.4050, L501.9520, L100.0100 ####[facility] [address] [place], [address] T PROT 6.8 g/dL Normal 6.4-8.2 [facility] Comment on above: Performed By: #### L 500.4100, L501.9985, L500.4050, L501.9520, L100.0100 ####[facility] [address] [place], [address] Urea nitrogen [Mass/Vol] 30 mg/dL High 7-18 [facility] Comment on above: Performed By: #### L 500.4100, L501.9985, L500.4050, L501.9520, L100.0100 ####[facility] [address] [place], [address] Eosinophil percentageOrdered By: Cookie Arabella on 04-25-2024 Eosinophils/100 WBC (Bld) 3.1 % 0-5 [facility] Erythrocyte distribution wid th ratioOrdered By: on 04-25-2024 Erythrocyte distribution width (RBC) [Ratio] 20.5 % High 11.6-14.6 [facility] Erythrocyte distribution wid th standard deviationOrdered By: on 04-25-2024 Erythrocyte distribution width (RBC) [Ratio] 54.5 fl High 35.1-43.9 [facility] Glomerular filtration rate ( GFR) estimationOrdered By: on 04-25-2024 GFR/1.73 sq M.predicted among non-blacks MDRD (S/P/Bld) [Vol rate/Area] 70 mL/min/{1.73_m2} >60 [facility] Glucose measurementOrdered B y: Cookie Bell on 04-25-2024 Glucose [Mass/Vol] 172 mg/dL High 74-106 [facility] Gl[facility] deOrdered By: Ochoa Johnson on 04-25-2024 Glucose [Mass/Vol] 252 mg/dL High 74-106 [facility] Hematocrit Auto (Bld) [Volum e fraction]Ordered By: Cookie Bell on 04-25-2024 Hematocrit (Bld) [Volume fraction] 29.2 % Low 40-54 [facility] Hemoglobin A1con 04-25-2024 HbA1c (Bld) [Mass fraction] 7.3 % High 3.8-5.6 [facility] Comment on above: Result Comment: Norm al < 5.7 % Prediabetic 5.7 - 6.4 % Diabetic >or= 6.5 % Please note range changes. Performed By: #### L 500.4100, L501.9985, L500.4050, L501.9520, L100.0100 ####[facility] [address] [place], [address] Hemoglobin A1c percentageOrd ered By: Cookie Bell on 04-25-2024 HbA1c (Bld) [Mass fraction] 7.3 % High 3.8-5.6 [facility] Hemoglobin measurementOrdere d By: Cookie Bell on 04-25-2024 Hemoglobin (Bld) [Mass/Vol] 8.6 g/dL Low 13.0-16.5 [facility] High density lipoprotein (HD L) measurementOrdered By: Cookie Bell on 04-25-2024 High density lipoprotein (HDL) measurement 38 mg/dL Low >40 [facility] Immature granulocytes/100 WB C Auto (Bld)Ordered By: Cookie Arabella on 04-25-2024 Immature granulocytes/100 WBC (Bld) 0.600 % 0.0-0.9 [facility] L501.4020on 04-25-2024 TROPONIN-I HS 76 pg/mL Normal 3.0-78.0 [facility] Comment on above: Order Comment: Comme nts: SPECIMEN #3'TROP' Serial specimen #1, #2 or #3: 3 Result Comment: Plea Note: New Test Units and Gender Specific Reference Ranges. For more information see Policy Stat Procedure [place] High Sensitivity Troponin (TNIH) and attachments. Performed By: #### L 501.4020 ####[facility] [address] [place], [place], [id number] TROPONIN-I HS 103 pg/mL High 3.0-78.0 [facility] Comment on above: Order Comment: Comme nts: SPECIMEN #2'TROP' Serial specimen #1, #2 or #3: 2 Result Comment: Plea se Note: New Test Units and Gender Specific Reference Ranges. For more information see Policy Stat Procedure [place] High Sensitivity Troponin (TNIH) and attachments. Performed By: #### L 501.4020 ####[facility] [address] [facility] [place], [place], [id number](239) Lipid Profileon 04-25-2024 Cholesterol [Mass/Vol] 127 mg/dL Normal 200 [facility] Comment on above: Result Comment: <200 mg/dL Desirable 200-240 mg/dL Borderline >240 mg/dL High Risk Performed By: #### L 500.4100, L501.9985, L500.4050, L501.9520, L100.0100 ####[facility] [address] [facility] [address] [place], [place], [id number] Cholesterol in HDL [Mass/Vol] 38 mg/dL Low [facility] Comment on above: Result Comment: The drugs N-Acetylcysteine and Metamizole may falselydepress this assay. Reference Range HDL <40 mg/dL Low HDL Cholesterol HDL >or= 60 mg/dL High HDL Cholesterol Performed By: #### L 500.4100, L501.9985, L500.4050, L501.9520, L100.0100 ####[facility] [address] [facility] [place], [address] Cholesterol in LDL [Mass/Vol] 46 mg/dL Normal 0-130 [facility] Comment on above: Performed By: #### L 500.4100, L501.9985, L500.4050, L501.9520, L100.0100 ####[facility] [address] [place], [address] Cholesterol in VLDL [Mass/Vol] 43 mg/dL High 5-40 [facility] Comment on above: Performed By: #### L 500.4100, L501.9985, L500.4050, L501.9520, L100.0100 ####[facility] [address] [place], [address] Triglyceride [Mass/Vol] 216 mg/dL High [facility] Comment on above: Result Comment: The drugs N-Acetylcysteine and Metamizole may falselydepress this assay.Serum Triglycerides Reference Interval Normal <150 mg/dL Borderline high 150 - 199 mg/dL High 200 - 499 mg/dL Very High > or = 500 mg/dL Performed By: #### L 500.4100, L501.9985, L500.4050, L501.9520, L100.0100 ####[facility] [address] [place], [address] Low density lipoprotein (LDL ) cholesterol measurementOrdered By: on 04-25-2024 Low density lipoprotein (LDL) cholesterol measurement 46 mg/dL 0-130 [facility] MCV (mean corpuscular volume ) determinationOrdered By: on 04-25-2024 MCV (RBC) [Entitic vol] 75.3 fL Low 80-94 [facility] MR/CON.PCM.NEon 04-25-2024 MR/CON.PCM.NE Normal [facility] Mean corpuscular hemoglobin (MCH) determinationOrdered By: on 04-25-2024 MCH (RBC) [Entitic mass] 22.2 pg Low 27.0-32.0 [facility] Monocyte percentageOrdered B y: on 04-25-2024 Monocytes/100 WBC (Bld) 9.8 % 0-10 [facility] Neutrophil percentageOrdered By: on 04-25-2024 Neutrophils/100 WBC (Bld) 71.6 % High 47-70 [facility] No Panel InformationOrdered By: Cookie Bell on 04-25-2024 13 U/L Low 15-37 [facility] Platelet countOrdered By: Katey lewis Arabella on 04-25-2024 Platelets (Bld) [#/Vol] 300 10*3/uL 150-450 [facility] Potassium measurementOrdered By: Cookie Bell on 04-25-2024 Potassium [Moles/Vol] 3.7 mmol/L 3.5-5.1 [facility] RBC Auto (Bld) [#/Vol]Ordere d By: Cookie Bell on 04-25-2024 RBC (Bld) [#/Vol] 3.88 10*6/uL Low 4.6-6.2 [facility] Serum globulin measurementOr dered By: Cookie Bell on 04-25-2024 Globulin (S) [Mass/Vol] 4.0 g/dL 2.2-4.2 [facility] Serum or plasma alanine briscoe otransferase (ALT) measurementOrdered By: Cookie Bell on 04-25-2024 ALT [Catalytic activity/Vol] 18 U/L 16-61 [facility] Serum or plasma albumin grazyna urement (mass/volume)Ordered By: Cookie Bell on 04-25-2024 Albumin [Mass/Vol] 2.8 g/dL Low 3.2-5.0 [facility] Serum or plasma alkaline benjamin sphatase measurementOrdered By: Cookie Bell on 04-25-2024 ALP [Catalytic activity/Vol] 69 U/L 45-117 [facility] Serum or plasma calcium grazyna urement (mass/volume)Ordered By: Cookie Bell on 04-25-2024 Calcium [Mass/Vol] 8.5 mg/dL 8.5-10.1 [facility] Serum or plasma cholesterol measurement (mass/volume)Ordered By: Cookie Bell on 04-25-2024 Cholesterol [Mass/Vol] 127 mg/dL <200 [facility] Serum or plasma creatinine m easurement (mass/volume)Ordered By: Cookie Bell on 04-25-2024 Creatinine [Mass/Vol] 1.14 mg/dL 0.70-1.30 [facility] Serum or plasma thyroid stim ulating hormone (TSH) measurement (units/volume)Ordered By: Cookie Bell on 04-25-2024 TSH Qn 5.220 uIU/mL High 0.358-3.74 0 [facility] Serum or plasma urea nitroge n measurement (mass/volume)Ordered By: Cookie Bell on 04-25-2024 Urea nitrogen [Mass/Vol] 30 mg/dL High 7-18 [facility] Sodium levelOrdered By: Celyu mn Arabella on 04-25-2024 Sodium [Moles/Vol] 137 mmol/L 136-145 [facility] Target cell detectionOrdered By: Cookie Bell on 04-25-2024 Target cells LM Ql (Bld) RARE [facility] Thyroid Stim Hormone (TSH)on 04-25-2024 TSH 5.220 uIU/mL High 0.358-3.74 0 [facility] Comment on above: Performed By: #### L 500.4100, L501.9985, L500.4050, L501.9520, L100.0100 ####[facility] [address] [place], [place], [id number] Total proteinOrdered By: Cely reynan Arabella on 04-25-2024 Protein [Mass/Vol] 6.8 g/dL 6.4-8.2 [facility] Troponin IOrdered By: Cookie Bell on 04-25-2024 Troponin I 76 pg/mL 3.0-78.0 [facility] Very low density lipoprotein (VLDL) cholesterol measurementOrdered By: Cookie Arabella on 04-25-2024 Very low density lipoprotein (VLDL) cholesterol measurement 43 mg/dL High 5-40 [facility] White blood cell (WBC) count Ordered By: Cookie Bell on 04-25-2024 WBC (Bld) [#/Vol] 12.5 10*3/uL High 4.4-11.0 [facility] 12 Lead EKGon 04-24-2024 12 Lead EKG Normal [facility] Abdomen Single View (Portabl e)on 04-24-2024 Abdomen Single View (Portable) Normal [facility] Absolute lymphocyte countOrd ered By: Radha Khan on 04-24-2024 Lymphocytes Auto (Unsp spec) [#/Vol] 2.02 10*3/uL 0.83-4.51 [facility] Activated partial thrombopla stin time (aPTT) in platelet poor plasma by coagulation aOrdered By: Daniel Mcneil on 04-24-2024 aPTT Coag (PPP) [Time] 24.8 s 24.1-36.2 [facility] Automated lymphocyte count a s percentage of total leukocytesOrdered By: Radha Khan on 04-24-2024 Lymphocytes/100 WBC Auto (Unsp spec) 14.4 % Low 19-41 [facility] [facility] Basic Metabolic Profile (BMP )on 04-24-2024 BUN/CRE 28.5 RATIO High 10-20 [facility] Comment on above: Order Comment: 'TROP ' Serial specimen #1, #2 or #3: 1 Performed By: #### L 500.2500, L300.3900, L300.4310, L100.0100, L501.4020 ####[facility] [address] [place], [address] CA,Total 8.9 mg/dL Normal 8.5-10.1 [facility] Comment on above: Order Comment: 'TROP ' Serial specimen #1, #2 or #3: 1 Performed By: #### L 500.2500, L300.3900, L300.4310, L100.0100, L501.4020 ####[facility] [address] [place], [address] Chloride [Moles/Vol] 106 mmol/L Normal 98-107 [facility] Comment on above: Order Comment: 'TROP ' Serial specimen #1, #2 or #3: 1 Performed By: #### L 500.2500, L300.3900, L300.4310, L100.0100, L501.4020 ####[facility] [address] [place], [address] CO2 [Moles/Vol] 27.0 mmol/L Normal 21.0-32.0 [facility] Comment on above: Order Comment: 'TROP ' Serial specimen #1, #2 or #3: 1 Performed By: #### L 500.2500, L300.3900, L300.4310, L100.0100, L501.4020 ####[facility] [address] [place], [address] Creatinine [Mass/Vol] 1.30 mg/dL Normal 0.70-1.30 [facility] Comment on above: Order Comment: 'TROP ' Serial specimen #1, #2 or #3: 1 Result Comment: The validity of the calculated GFR GFRAA in patients over70 years has not been determined. Clinical correlation isessential. Performed By: #### L 500.2500, L300.3900, L300.4310, L100.0100, L501.4020 ####[facility] [address] [place], [address] ECRCL 84.56 ml/min Normal [facility] Comment on above: Order Comment: 'TROP ' Serial specimen #1, #2 or #3: 1 Performed By: #### L 500.2500, L300.3900, L300.4310, L100.0100, L501.4020 ####[facility] [address] [place], [address] EST GFR - AA 72 mL/min Normal >60 [facility] Comment on above: Order Comment: 'TROP ' Serial specimen #1, #2 or #3: 1 Result Comment: Afri can [place] GFR Calc Performed By: #### L 500.2500, L300.3900, L300.4310, L100.0100, L501.4020 ####[facility] [address] [place], [address] GAP 6 Normal 5-15 [facility] Comment on above: Order Comment: 'TROP ' Serial specimen #1, #2 or #3: 1 Performed By: #### L 500.2500, L300.3900, L300.4310, L100.0100, L501.4020 ####[facility] [address] [place], [address] GFR/1.73 sq M.predicted among non-blacks MDRD (S/P/Bld) [Vol rate/Area] 60 mL/min/{1.73_m2} Normal >60 [facility] Comment on above: Order Comment: 'TROP ' Serial specimen #1, #2 or #3: 1 Result Comment: Non- GFR Calc Performed By: #### L 500.2500, L300.3900, L300.4310, L100.0100, L501.4020 ####[facility] [address] [place], [address] Glucose [Mass/Vol] 81 mg/dL Normal 74-106 [facility] Comment on above: Order Comment: 'TROP ' Serial specimen #1, #2 or #3: 1 Performed By: #### L 500.2500, L300.3900, L300.4310, L100.0100, L501.4020 ####[facility] [address] [place], [address] Potassium [Moles/Vol] 4.2 mmol/L Normal 3.5-5.1 [facility] Comment on above: Order Comment: 'TROP ' Serial specimen #1, #2 or #3: 1 Performed By: #### L 500.2500, L300.3900, L300.4310, L100.0100, L501.4020 ####[facility] [address] [place], [address] Sodium [Moles/Vol] 139 mmol/L Normal 136-145 [facility] Comment on above: Order Comment: 'TROP ' Serial specimen #1, #2 or #3: 1 Performed By: #### L 500.2500, L300.3900, L300.4310, L100.0100, L501.4020 ####[facility] [address] [place], [address] Urea nitrogen [Mass/Vol] 37 mg/dL High 7-18 [facility] Comment on above: Order Comment: 'TROP ' Serial specimen #1, #2 or #3: 1 Performed By: #### L 500.2500, L300.3900, L300.4310, L100.0100, L501.4020 ####[facility] [address] [place], [address] Basophil percentageOrdered B y: Radha Khan on 04-24-2024 Basophils/100 WBC (Bld) 0.4 % 0-1 [facility] CBC W/Diff, Automatedon 04-02 Anisocytosis Ql (Bld) 1+ Normal [facility] Comment on above: Performed By: #### L 100.0100, L100.9950, L503.6550, L503.0105, L503.6030 ####[facility] [address] [place], [address] HYPOCHROMASIA 1+ Normal [facility] Comment on above: Performed By: #### L 100.0100, L100.9950, L503.6550, L503.0105, L503.6030 ####[facility] [address] [place], [address] MICROCYTIC 1+ Normal [facility] Comment on above: Performed By: #### L 100.0100, L100.9950, L503.6550, L503.0105, L503.6030 ####[facility] [address] [place], [address] OVALOCYTE 1+ Normal [facility] Comment on above: Performed By: #### L 100.0100, L100.9950, L503.6550, L503.0105, L503.6030 ####[facility] [address] [place], [address] PLT EST ADEQUATE Normal ADEQ [facility] Comment on above: Performed By: #### L 100.0100, L100.9950, L503.6550, L503.0105, L503.6030 ####[facility] [address] [place], [address] RED CELL MORPH N CHROM Normal NORM C C [facility] Comment on above: Performed By: #### L 100.0100, L100.9950, L503.6550, L503.0105, L503.6030 ####[facility] [address] [place], [address] Anisocytosis Ql (Bld) 1+ Normal [facility] Comment on above: Performed By: #### L 500.2500, L300.3900, L300.4310, L100.0100, L501.4020 ####[facility] [address] [place], [address] HYPOCHROMASIA 1+ Normal [facility] Comment on above: Performed By: #### L 500.2500, L300.3900, L300.4310, L100.0100, L501.4020 ####[facility] [address] [place], [place], [phone] MICROCYTIC 1+ Normal [facility] Comment on above: Performed By: #### L 500.2500, L300.3900, L300.4310, L100.0100, L501.4020 ####[facility] [address] [place], [address] OVALOCYTE 1+ Normal [facility] Comment on above: Performed By: #### L 500.2500, L300.3900, L300.4310, L100.0100, L501.4020 ####[facility] [address] [place], [address] PLT EST ADEQUATE Normal ADEQ [facility] Comment on above: Performed By: #### L 500.2500, L300.3900, L300.4310, L100.0100, L501.4020 ####[facility] [address] [place], [address] RED CELL MORPH N CHROM Normal NORM C C [facility] Comment on above: Performed By: #### L 500.2500, L300.3900, L300.4310, L100.0100, L501.4020 ####[facility] [address] [place], [address] Chest 1 Viewon 04-24-2024 Chest 1 View Normal [facility] Emergency Department Summary on 04-24-2024 Emergency Department Summary Normal [facility] Eosinophil percentageOrdered By: Radha Khan on 04-24-2024 Eosinophils/100 WBC (Bld) 2.6 % 0-5 [facility] Erythrocyte distribution wid th ratioOrdered By: Radha Khan on 04-24-2024 Erythrocyte distribution width (RBC) [Ratio] 20.5 % High 11.6-14.6 [facility] Erythrocyte distribution wid th standard deviationOrdered By: Radha Khan on 04-24-2024 Erythrocyte distribution width (RBC) [Ratio] 56.2 fl High 35.1-43.9 [facility] Erythrocyte morphology asses smentOrdered By: Daniel Mcneil on 04-24-2024 RBC morphology finding Nom (Bld) N CHROM NORMAL NORM C&C [facility] Erythrocyte morphology asses smentOrdered By: Radha Khan on 04-24-2024 RBC morphology finding Nom (Bld) N CHROM NORMAL NORM C&C [facility] Ferritinon 04-24-2024 Ferritin [Mass/Vol] 102 ng/mL Normal 26-388 [facility] Comment on above: Performed By: #### L 100.0100, L100.9950, L503.6550, L503.0105, L503.6030 ####[facility] [address] [place], [address] H AND P Exam - Hospitaliston 04-24-2024 H&P Exam - Hospitalist Normal [facility] Hematocrit Auto (Bld) [Volum e fraction]Ordered By: Radha Khan on 04-24-2024 Hematocrit (Bld) [Volume fraction] 33.0 % Low 40-54 [facility] Hemoglobin measurementOrdere d By: Radha Khan on 04-24-2024 Hemoglobin (Bld) [Mass/Vol] 9.0 g/dL Low 13.0-16.5 [facility] Hypochromatic red blood cell detectionOrdered By: Daniel Mcneil on 04-24-2024 Hypochromia Ql (Bld) 1+ [facility] Hypochromatic red blood cell detectionOrdered By: Radha Khan on 04-24-2024 Hypochromia Ql (Bld) 1+ [facility] Immature granulocytes/100 WB C Auto (Bld)Ordered By: Radha Khan on 04-24-2024 Immature granulocytes/100 WBC (Bld) 0.700 % 0.0-0.9 [facility] Iron measurement (mass/mass) Ordered By: Radha Khan on 04-24-2024 Iron (Unsp spec) [Mass/Mass] 64 ug/dL Low 65-175 [facility] Iron+Iron Binding Capacityon 04-24-2024 Iron [Mass/Vol] 64 ug/dL Low 65-175 [facility] Comment on above: Performed By: #### L 100.0100, L100.9950, L503.6550, L503.0105, L503.6030 ####[facility] [address] [place], [address] IRON SATURATION 22.8 Normal 15.0-55.0 [facility] Comment on above: Performed By: #### L 100.0100, L100.9950, L503.6550, L503.0105, L503.6030 ####[facility] [address] [place], [place], [id number]) TIBC 281 ug/dL Normal 250-450 [facility] Comment on above: Performed By: #### L 100.0100, L100.9950, L503.6550, L503.0105, L503.6030 ####[facility] [address] [place], [address] L501.4020on 04-24-2024 TROPONIN-I HS 106 pg/mL High 3.0-78.0 [facility] Comment on above: Order Comment: 'TROP ' Serial specimen #1, #2 or #3: 1 Result Comment: Kodi monterroso Note: New Test Units and Gender Specific Reference Ranges. For more information see Policy Stat Procedure [place] High Sensitivity Troponin (TNIH) and attachments. Performed By: #### L 501.4020 ####[facility] [address] [place], [address] TROPONIN-I HS 190 pg/mL Invalid Interpretation Code 3.0-78.0 [facility] Comment on above: Order Comment: 'TROP ' Serial specimen #1, #2 or #3: 1 Result Comment: Crit ical Result(s) Called at: 16:51:09 04/24/2024 by: SHERYL. Results read back by Stan RAMIREZ Please Note: New Test Units and Gender Specific Reference Ranges. For more information see Policy Stat Procedure [place] High Sensitivity Troponin (TNIH) and attachments. Performed By: #### L 500.2500, L300.3900, L300.4310, L100.0100, L501.4020 ####[facility] [address] [place], [address] MCV (mean corpuscular volume ) determinationOrdered By: Radha Khan on 04-24-2024 MCV (RBC) [Entitic vol] 77.6 fL Low 80-94 [facility] Magnesiumon 04-24-2024 Magnesium [Mass/Vol] 2.1 mg/dL Normal 1.6-2.6 [facility] Comment on above: Order Comment: Comme nts: may add to ED labs Performed By: #### L 501.5200 ####[facility] [address] [place], [address] Magnesium measurementOrdered By: Cookie Bell on 04-24-2024 Magnesium [Mass/Vol] 2.1 mg/dL 1.6-2.6 [facility] Mean corpuscular hemoglobin (MCH) determinationOrdered By: Radha Khan on 04-24-2024 MCH (RBC) [Entitic mass] 21.2 pg Low 27.0-32.0 [facility] Monocyte percentageOrdered B y: Radha Khan on 04-24-2024 Monocytes/100 WBC (Bld) 10.2 % High 0-10 [facility] Neutrophil percentageOrdered By: Radha Khan on 04-24-2024 Neutrophils/100 WBC (Bld) 71.7 % High 47-70 [facility] No Panel InformationOrdered By: Daniel Mcneil on 04-24-2024 1+ [facility] No Panel InformationOrdered By: Radha Khan on 04-24-2024 1+ [facility] Ovalocyte detectionOrdered B y: Daniel Mcneil on 04-24-2024 Ovalocytes LM Ql (Bld) 1+ [facility] Ovalocyte detectionOrdered B y: Radha Khan on 04-24-2024 Ovalocytes LM Ql (Bld) 1+ [facility] Partial Thromboplast Timeon 04-24-2024 aPTT Coag (Bld) [Time] 24.8 s Normal 24.1-36.2 [facility] Comment on above: Performed By: #### L 500.2500, L300.3900, L300.4310, L100.0100, L501.4020 ####[facility] [address] [place], [place], [id number] Platelet countOrdered By: Armen Khan on 04-24-2024 Platelets (Bld) [#/Vol] 361 10*3/uL 150-450 [facility] Platelet estimateOrdered By: Daniel Mcneil on 04-24-2024 Platelets LM Ql (Bld) ADEQUATE ADEQ [facility] Platelet estimateOrdered By: Radha Khan on 04-24-2024 Platelets LM Ql (Bld) ADEQUATE [facility] Prothrombin Time w/INRon INR Coag (PPP) [Relative time] 1.1 {INR} Normal [facility] Comment on above: Performed By: #### L 500.2500, L300.3900, L300.4310, L100.0100, L501.4020 ####[facility] [address] [place], [address] PT Coag (PPP) [Time] 14.4 s Normal 11.7-14.9 [facility] Comment on above: Performed By: #### L 500.2500, L300.3900, L300.4310, L100.0100, L501.4020 ####[facility] [address] [place], [address] Prothrombin timeOrdered By: Daniel Mcneil on 04-24-2024 PT Coag (PPP) [Time] 14.4 s 11.7-14.9 [facility] RBC Auto (Bld) [#/Vol]Ordere d By: Radha Khan on 04-24-2024 RBC (Bld) [#/Vol] 4.25 10*6/uL Low 4.6-6.2 [facility] Retic Panelon 04-24-2024 IM RET FRACTION 18.00 High 3.00-15.90 [facility] Comment on above: Performed By: #### L 100.0100, L100.9950, L503.6550, L503.0105, L503.6030 ####[facility] [address] [place], [address] RET-HE 26.3 pg Low 30-35 [facility] Comment on above: Performed By: #### L 100.0100, L100.9950, L503.6550, L503.0105, L503.6030 ####[facility] [address] [place], [address] Retic Count 1.99 High 0.5-1.5 [facility] Comment on above: Performed By: #### L 100.0100, L100.9950, L503.6550, L503.0105, L503.6030 ####[facility] [address] [place], [place], [id number] Reticulocyte hemoglobin equi valent (RET-He) measurementOrdered By: Radha Khan on 04-24-2024 Hemoglobin (Reticulocytes) [Entitic mass] 26.3 pg Low 30-35 [facility] Reticulocytes Auto (Bld) [#/ Vol]Ordered By: Radha Khan on 04-24-2024 Reticulocytes/100 RBC (Bld) 1.99 % High 0.5-1.5 [facility] STROKE Brain/Head without Co nton 04-24-2024 STROKE Brain/Head without Cont Normal [facility] STROKE CTA Head AND Neck W/C onon 04-24-2024 STROKE CTA Head AND Neck W/Con Normal [facility] Serum or plasma iron saturat ion measurement (mass fraction)Ordered By: Radha Khan on 04-24-2024 Iron saturation [Mass fraction] 22.8 % 15.0-55.0 [facility] Vitamin B12 measurementOrder ed By: Radha Khan on 04-24-2024 Cobalamin (Vitamin B12) [Mass/Vol] 572 pg/mL 211-911 [facility] White blood cell (WBC) count Ordered By: Radha Khan on 04-24-2024 WBC (Bld) [#/Vol] 14.1 10*3/uL High 4.4-11.0 [facility] 36on 04-22-2024 36 LVM to let patient k now he is scheduled for surgery and to call back to go over presurgical instructions Normal [facility] 36 Call ref# [id number] 000. No Prior authorization needed for inpatient 24 hour observation. Normal [facility] Pulmonary Visit Reporton Pulmonary Visit Report Normal [facility] Culture, Blood (WB)on 2024 CUB Blood cultures x2, f rom two different sites No growth in 5 days. Normal [facility] Comment on above: Performed By: #### M 200.1000, M100.636 ####[facility] [address] [place], [address] Endocrinology Visit Reporton 04-16-2024 Endocrinology Visit Report Normal [facility] No Panel Informationon 04-16 7.7 % High 4.2-6.3 [facility] Absolute lymphocyte countOrd ered By: Cuco Soler on 04-15-2024 Lymphocytes Auto (Unsp spec) [#/Vol] 0.77 10*3/uL Low 0.83-4.51 [facility] Automated lymphocyte count a s percentage of total leukocytesOrdered By: Cuco Soler on 04-15-2024 Lymphocytes/100 WBC Auto (Unsp spec) 7.0 % Low 19-41 [facility] Basic Metabolic Profile (BMP )on 04-15-2024 BUN/CRE 29.8 RATIO High 10-20 [facility] Comment on above: Performed By: #### L 100.0100, L500.2500 ####[facility] [address] [place], [address] CA,Total 9.4 mg/dL Normal 8.5-10.1 [facility] Comment on above: Performed By: #### L 100.0100, L500.2500 ####[facility] [address] [place], [address] Chloride [Moles/Vol] 103 mmol/L Normal 98-107 [facility] Comment on above: Performed By: #### L 100.0100, L500.2500 ####[facility] [address] [place], [address] CO2 [Moles/Vol] 24.0 mmol/L Normal 21.0-32.0 [facility] Comment on above: Performed By: #### L 100.0100, L500.2500 ####[facility] [address] [place], [address] Creatinine [Mass/Vol] 1.14 mg/dL Normal 0.70-1.30 [facility] Comment on above: Result Comment: The validity of the calculated GFR GFRAA in patients over70 years has not been determined. Clinical correlation isessential. Performed By: #### L 100.0100, L500.2500 ####[facility] [address] [place], [address] ECRCL 94.72 ml/min Normal [facility] Comment on above: Performed By: #### L 100.0100, L500.2500 ####[facility] [address] [place], [address] EST GFR - AA 84 mL/min Normal >60 [facility] Comment on above: Result Comment: Afri can [place] GFR Calc Performed By: #### L 100.0100, L500.2500 ####[facility] [address] [place], [address] GAP 8 Normal 5-15 [facility] Comment on above: Performed By: #### L 100.0100, L500.2500 ####[facility] [address] [place], [address] GFR/1.73 sq M.predicted among non-blacks MDRD (S/P/Bld) [Vol rate/Area] 70 mL/min/{1.73_m2} Normal >60 [facility] Comment on above: Result Comment: Non- GFR Calc Performed By: #### L 100.0100, L500.2500 ####[facility] [address] [place], [address] Glucose [Mass/Vol] 154 mg/dL High 74-106 [facility] Comment on above: Result Comment: Fast ing Glucose result greater than or equal to 126 mg/dLsuggests DIABETES MELLITUS per A.D.A. criteria. Performed By: #### L 100.0100, L500.2500 ####[facility] [address] [place], [address] Potassium [Moles/Vol] 4.4 mmol/L Normal 3.5-5.1 [facility] Comment on above: Performed By: #### L 100.0100, L500.2500 ####[facility] [address] [place], [address] Sodium [Moles/Vol] 135 mmol/L Low 136-145 [facility] Comment on above: Performed By: #### L 100.0100, L500.2500 ####[facility] [address] [place], [address] Urea nitrogen [Mass/Vol] 34 mg/dL High 7-18 [facility] Comment on above: Performed By: #### L 100.0100, L500.2500 ####[facility] [address] [place], [address] Basophil percentageOrdered B y: Cucogemini Soler on 04-15-2024 Basophils/100 WBC (Bld) 0.1 % 0-1 [facility] CBC W/Diff, Automatedon - Absolute Lymph 0.77 X10 3/uL Low 0.83-4.51 [facility] Comment on above: Performed By: #### L 100.0100, L500.2500 ####[facility] [address] [place], [address] Absolute Neut 9.9 X10 3/uL High 2.0-7.7 [facility] Comment on above: Performed By: #### L 100.0100, L500.2500 ####[facility] [address] [place], [address] Basophils/100 WBC (Bld) 0.1 % Normal 0-1 [facility] Comment on above: Performed By: #### L 100.0100, L500.2500 ####[facility] [address] [place], [address] Eosinophils/100 WBC (Bld) 0.1 % Normal 0-5 [facility] Comment on above: Performed By: #### L 100.0100, L500.2500 ####[facility] [address] [place], [address] Erythrocyte distribution width (RBC) [Ratio] 19.6 % High 11.6-14.6 [facility] Comment on above: Performed By: #### L 100.0100, L500.2500 ####[facility] [address] [place], [address] Hematocrit (Bld) [Volume fraction] 28.9 % Low 40-54 [facility] Comment on above: Performed By: #### L 100.0100, L500.2500 ####[facility] [address] [place], [address] Hemoglobin (Bld) [Mass/Vol] 8.5 g/dL Low 13.0-16.5 [facility] Comment on above: Performed By: #### L 100.0100, L500.2500 ####[facility] [address] [place], [address] IG% 0.600 Normal 0.0-0.9 [facility] Comment on above: Result Comment: IG% - Immature Granulocytes (promyelocytes, myelocytes andmetamyelocytes) > 1% indicates that a LEFT SHIFT is Present. Performed By: #### L 100.0100, L500.2500 ####[facility] [address] [place], [address] Lymphocytes/100 WBC (Bld) 7.0 % Low 19-41 [facility] Comment on above: Performed By: #### L 100.0100, L500.2500 ####[facility] [address] [place], [address] MCH (RBC) [Entitic mass] 21.8 pg Low 27.0-32.0 [facility] Comment on above: Performed By: #### L 100.0100, L500.2500 ####[facility] [address] [place], [address] MCHC (RBC) [Mass/Vol] 29.4 g/dL Low 32-36 [facility] Comment on above: Performed By: #### L 100.0100, L500.2500 ####[facility] [address] [place], [address] MCV (RBC) [Entitic vol] 74.1 fL Low 80-94 [facility] Comment on above: Performed By: #### L 100.0100, L500.2500 ####[facility] [address] [place], [address] Monocytes/100 WBC (Bld) 2.4 % Normal 0-10 [facility] Comment on above: Performed By: #### L 100.0100, L500.2500 ####[facility] [address] [place], [address] Neutrophils/100 WBC (Bld) 89.8 % High 47-70 [facility] Comment on above: Performed By: #### L 100.0100, L500.2500 ####[facility] [address] [place], [address] Nucleated RBC (Bld) [#/Vol] 0 10*3/uL Normal 0-5 [facility] Comment on above: Performed By: #### L 100.0100, L500.2500 ####[facility] [address] [place], [address] Platelet mean volume (Bld) [Entitic vol] 9.8 fL Normal 6.2-12.0 [facility] Comment on above: Performed By: #### L 100.0100, L500.2500 ####[facility] [address] [place], [address] Platelets (Bld) [#/Vol] 341 10*3/uL Normal 150-450 [facility] [facility] Comment on above: Performed By: #### L 100.0100, L500.2500 ####[facility] [address] [place], [address] RBC (Bld) [#/Vol] 3.90 10*6/uL Low 4.6-6.2 [facility] Comment on above: Performed By: #### L 100.0100, L500.2500 ####[facility] [address] [place], [address] RDW SD 52.3 fl High 35.1-43.9 [facility] Comment on above: Performed By: #### L 100.0100, L500.2500 ####[facility] [address] [place], [address] WBC (Bld) [#/Vol] 11.0 10*3/uL Normal 4.4-11.0 [facility] Comment on above: Performed By: #### L 100.0100, L500.2500 ####[facility] [address] [place], [address] Carbon dioxide measurementOr dered By: Cuco Soler on 04-15-2024 CO2 [Moles/Vol] 24.0 mmol/L 21.0-32.0 [facility] Chloride measurementOrdered By: Cuco Soler on 04-15-2024 Chloride [Moles/Vol] 103 mmol/L 98-107 [facility] Discharge Instructionon 04-01 Discharge Instruction Normal [facility] Eosinophil percentageOrdered By: Cuco Soler on 04-15-2024 Eosinophils/100 WBC (Bld) 0.1 % 0-5 [facility] Erythrocyte distribution wid th ratioOrdered By: Cuco Soler on 04-15-2024 Erythrocyte distribution width (RBC) [Ratio] 19.6 % High 11.6-14.6 [facility] Erythrocyte distribution wid th standard deviationOrdered By: Cuco Soler on 04-15-2024 Erythrocyte distribution width (RBC) [Ratio] 52.3 fl High 35.1-43.9 [facility] Glomerular filtration rate ( GFR) estimationOrdered By: Cuco Soler on 04-15-2024 GFR/1.73 sq M.predicted among non-blacks MDRD (S/P/Bld) [Vol rate/Area] 70 mL/min/{1.73_m2} >60 [facility] Glucose measurementOrdered B y: Cuco Soler on 04-15-2024 Glucose [Mass/Vol] 154 mg/dL High 74-106 [facility] Hematocrit Auto (Bld) [Volum e fraction]Ordered By: Cuco Soler on 04-15-2024 Hematocrit (Bld) [Volume fraction] 28.9 % Low 40-54 [facility] Hemoglobin measurementOrdere d By: Cuco Soler on 04-15-2024 Hemoglobin (Bld) [Mass/Vol] 8.5 g/dL Low 13.0-16.5 [facility] Immature granulocytes/100 WB C Auto (Bld)Ordered By: Cuco Soler on 04-15-2024 Immature granulocytes/100 WBC (Bld) 0.600 % 0.0-0.9 [facility] MCV (mean corpuscular volume ) determinationOrdered By: Cuco Soler on 04-15-2024 MCV (RBC) [Entitic vol] 74.1 fL Low 80-94 [facility] Mean corpuscular hemoglobin (MCH) determinationOrdered By: Cuco Soler on 04-15-2024 MCH (RBC) [Entitic mass] 21.8 pg Low 27.0-32.0 [facility] Monocyte percentageOrdered B y: Cuco Soler on 04-15-2024 Monocytes/100 WBC (Bld) 2.4 % 0-10 [facility] Neutrophil percentageOrdered By: Cuco Soler on 04-15-2024 Neutrophils/100 WBC (Bld) 89.8 % High 47-70 [facility] Platelet countOrdered By: Joselito Soler on 04-15-2024 Platelets (Bld) [#/Vol] 341 10*3/uL 150-450 [facility] Potassium measurementOrdered By: Cuco Soler on 04-15-2024 Potassium [Moles/Vol] 4.4 mmol/L 3.5-5.1 [facility] RBC Auto (Bld) [#/Vol]Ordere d By: Cuco Soler on 04-15-2024 RBC (Bld) [#/Vol] 3.90 10*6/uL Low 4.6-6.2 [facility] Serum or plasma calcium grazyna urement (mass/volume)Ordered By: Cuco Soler on 04-15-2024 Calcium [Mass/Vol] 9.4 mg/dL 8.5-10.1 [facility] Serum or plasma creatinine m easurement (mass/volume)Ordered By: Cuco Soler on 04-15-2024 Creatinine [Mass/Vol] 1.14 mg/dL 0.70-1.30 [facility] Serum or plasma urea nitroge n measurement (mass/volume)Ordered By: Cuco Soler on 04-15-2024 Urea nitrogen [Mass/Vol] 34 mg/dL High 7-18 [facility] Sodium levelOrdered By: Caitie Soler on 04-15-2024 Sodium [Moles/Vol] 135 mmol/L Low 136-145 [facility] White blood cell (WBC) count Ordered By: Cuco Soler on 04-15-2024 WBC (Bld) [#/Vol] 11.0 10*3/uL 4.4-11.0 [facility] GPC IDon 04-14-2024 GPC ID Normal [facility] Comment on above: Performed By: #### M 200.1000, M100.636 ####[facility] [address] [place], [address] Basic Metabolic Profile (BMP )on 04-14-2024 BUN/CRE 20.1 RATIO High 10-20 [facility] Comment on above: Performed By: #### L 100.0100, L501.5200, L500.2500, L500.3400, L501.2300 ####[facility] [address] [place], [address] CA,Total 9.0 mg/dL Normal 8.5-10.1 [facility] Comment on above: Performed By: #### L 100.0100, L501.5200, L500.2500, L500.3400, L501.2300 ####[facility] [address] [place], [address] Chloride [Moles/Vol] 100 mmol/L Normal 98-107 [facility] Comment on above: Performed By: #### L 100.0100, L501.5200, L500.2500, L500.3400, L501.2300 ####[facility] [address] [place], [address] CO2 [Moles/Vol] 26.0 mmol/L Normal 21.0-32.0 [facility] Comment on above: Performed By: #### L 100.0100, L501.5200, L500.2500, L500.3400, L501.2300 ####[facility] [address] [place], [address] Creatinine [Mass/Vol] 1.49 mg/dL High 0.70-1.30 [facility] Comment on above: Result Comment: The validity of the calculated GFR GFRAA in patients over70 years has not been determined. Clinical correlation isessential. Performed By: #### L 100.0100, L501.5200, L500.2500, L500.3400, L501.2300 ####[facility] [address] [place], [address] ECRCL 73.51 ml/min Normal [facility] Comment on above: Performed By: #### L 100.0100, L501.5200, L500.2500, L500.3400, L501.2300 ####[facility] [address] [place], [address] EST GFR - AA 62 mL/min Normal >60 [facility] Comment on above: Result Comment: Afri can [place] GFR Calc Performed By: #### L 100.0100, L501.5200, L500.2500, L500.3400, L501.2300 ####[facility] [address] [place], [address] GAP 6 Normal 5-15 [facility] Comment on above: Performed By: #### L 100.0100, L501.5200, L500.2500, L500.3400, L501.2300 ####[facility] [address] [place], [address] GFR/1.73 sq M.predicted among non-blacks MDRD (S/P/Bld) [Vol rate/Area] 51 mL/min/{1.73_m2} Low >60 [facility] Comment on above: Result Comment: Non- GFR Calc Performed By: #### L 100.0100, L501.5200, L500.2500, L500.3400, L501.2300 ####[facility] [address] [place], [address] Glucose [Mass/Vol] 272 mg/dL High 74-106 [facility] Comment on above: Result Comment: Gluc ose result greater than or equal to 200 mg/dLsuggests DIABETES MELLITUS per A.D.A. criteria. Performed By: #### L 100.0100, L501.5200, L500.2500, L500.3400, L501.2300 ####[facility] [address] [place], [address] Potassium [Moles/Vol] 4.0 mmol/L Normal 3.5-5.1 [facility] Comment on above: Performed By: #### L 100.0100, L501.5200, L500.2500, L500.3400, L501.2300 ####[facility] [address] [place], [address] Sodium [Moles/Vol] 132 mmol/L Low 136-145 [facility] Comment on above: Performed By: #### L 100.0100, L501.5200, L500.2500, L500.3400, L501.2300 ####[facility] [address] [place], [address] Urea nitrogen [Mass/Vol] 30 mg/dL High 7-18 [facility] Comment on above: Performed By: #### L 100.0100, L501.5200, L500.2500, L500.3400, L501.2300 ####[facility] [address] [place], [address] Bedside Glucoseon 04-14-2024 FINGERSTICK GLU 259 mg/dL High 74-106 [facility] Comment on above: Result Comment: ANI BRADFORD OF PATIENT CARE PER NURSING PROTOCOL Performed By: #### L 501.080 ####[facility] [address] [place], [address] Bilirubin directOrdered By: Cuco Soler on 04-14-2024 Bilirubin.direct [Mass/Vol] 0.20 mg/dL 0.00-0.30 [facility] Bilirubin, totalOrdered By: Cuco Soler on 04-14-2024 Bilirubin [Mass/Vol] 0.80 mg/dL 0.20-1.00 [facility] CBC W/Diff, Automatedon 04-01 Absolute Lymph 0.42 X10 3/uL Low 0.83-4.51 [facility] Comment on above: Performed By: #### L 100.0100, L501.5200, L500.2500, L500.3400, L501.2300 ####[facility] [address] [place], [address] Absolute Neut 7.9 X10 3/uL High 2.0-7.7 [facility] Comment on above: Performed By: #### L 100.0100, L501.5200, L500.2500, L500.3400, L501.2300 ####[facility] [address] [place], [address] Basophils/100 WBC (Bld) 0.2 % Normal 0-1 [facility] Comment on above: Performed By: #### L 100.0100, L501.5200, L500.2500, L500.3400, L501.2300 ####[facility] [address] [place], [address] Eosinophils/100 WBC (Bld) 0.0 % Normal 0-5 [facility] Comment on above: Performed By: #### L 100.0100, L501.5200, L500.2500, L500.3400, L501.2300 ####[facility] [address] [place], [address] Erythrocyte distribution width (RBC) [Ratio] 19.9 % High 11.6-14.6 [facility] Comment on above: Performed By: #### L 100.0100, L501.5200, L500.2500, L500.3400, L501.2300 ####[facility] [address] [place], [address] Hematocrit (Bld) [Volume fraction] 28.7 % Low 40-54 [facility] Comment on above: Performed By: #### L 100.0100, L501.5200, L500.2500, L500.3400, L501.2300 ####[facility] [address] [place], [address] Hemoglobin (Bld) [Mass/Vol] 8.4 g/dL Low 13.0-16.5 [facility] Comment on above: Performed By: #### L 100.0100, L501.5200, L500.2500, L500.3400, L501.2300 ####[facility] [address] [place], [address] IG% 0.500 Normal 0.0-0.9 [facility] Comment on above: Result Comment: IG% - Immature Granulocytes (promyelocytes, myelocytes andmetamyelocytes) > 1% indicates that a LEFT SHIFT is Present. Performed By: #### L 100.0100, L501.5200, L500.2500, L500.3400, L501.2300 ####[facility] [address] [place], [address] Lymphocytes/100 WBC (Bld) 4.9 % Low 19-41 [facility] Comment on above: Performed By: #### L 100.0100, L501.5200, L500.2500, L500.3400, L501.2300 ####[facility] [address] [place], [address] MCH (RBC) [Entitic mass] 21.8 pg Low 27.0-32.0 [facility] Comment on above: Performed By: #### L 100.0100, L501.5200, L500.2500, L500.3400, L501.2300 ####[facility] [address] [place], [address] MCHC (RBC) [Mass/Vol] 29.3 g/dL Low 32-36 [facility] Comment on above: Performed By: #### L 100.0100, L501.5200, L500.2500, L500.3400, L501.2300 ####[facility] [address] [place], [address] MCV (RBC) [Entitic vol] 74.4 fL Low 80-94 [facility] Comment on above: Performed By: #### L 100.0100, L501.5200, L500.2500, L500.3400, L501.2300 ####[facility] [address] [place], [address] Monocytes/100 WBC (Bld) 1.9 % Normal 0-10 [facility] Comment on above: Performed By: #### L 100.0100, L501.5200, L500.2500, L500.3400, L501.2300 ####[facility] [address] [place], [address] Neutrophils/100 WBC (Bld) 92.5 % High 47-70 [facility] Comment on above: Performed By: #### L 100.0100, L501.5200, L500.2500, L500.3400, L501.2300 ####[facility] [address] [place], [address] Nucleated RBC (Bld) [#/Vol] 0.2 10*3/uL Normal 0-5 [facility] Comment on above: Performed By: #### L 100.0100, L501.5200, L500.2500, L500.3400, L501.2300 ####[facility] [address] [place], [address] Platelet mean volume (Bld) [Entitic vol] 10.0 fL Normal 6.2-12.0 [facility] Comment on above: Performed By: #### L 100.0100, L501.5200, L500.2500, L500.3400, L501.2300 ####[facility] [address] [place], [address] Platelets (Bld) [#/Vol] 322 10*3/uL Normal 150-450 [facility] Comment on above: Performed By: #### L 100.0100, L501.5200, L500.2500, L500.3400, L501.2300 ####[facility] [address] [place], [address] RBC (Bld) [#/Vol] 3.86 10*6/uL Low 4.6-6.2 [facility] Comment on above: Performed By: #### L 100.0100, L501.5200, L500.2500, L500.3400, L501.2300 ####[facility] [address] [place], [address] RDW SD 53.1 fl High 35.1-43.9 [facility] Comment on above: Performed By: #### L 100.0100, L501.5200, L500.2500, L500.3400, L501.2300 ####[facility] [address] [place], [address] WBC (Bld) [#/Vol] 8.6 10*3/uL Normal 4.4-11.0 [facility] Comment on above: Performed By: #### L 100.0100, L501.5200, L500.2500, L500.3400, L501.2300 ####[facility] [address] [place], [address] Consultation - Intensiviston 04-14-2024 Consultation - Manager Marketing Sales Normal [facility] Echo, Limited Studyon 2024 Echo, Limited Study Normal [facility] Glucose measurement at [facility] deOrdered By: Cuco Soler on 04-14-2024 Glucose [Mass/Vol] 259 mg/dL High 74-106 [facility] Liver Profileon 04-14-2024 Albumin [Mass/Vol] 2.7 g/dL Low 3.2-5.0 [facility] Comment on above: Performed By: #### L 100.0100, L501.5200, L500.2500, L500.3400, L501.2300 ####[facility] [address] [place], [address] ALK P 77 U/L Normal 45-117 [facility] Comment on above: Performed By: #### L 100.0100, L501.5200, L500.2500, L500.3400, L501.2300 ####[facility] [address] [place], [address] ALT [Catalytic activity/Vol] 19 U/L Normal 16-61 [facility] Comment on above: Performed By: #### L 100.0100, L501.5200, L500.2500, L500.3400, L501.2300 ####[facility] [address] [place], [address] AST [Catalytic activity/Vol] 16 U/L Normal 15-37 [facility] Comment on above: Performed By: #### L 100.0100, L501.5200, L500.2500, L500.3400, L501.2300 ####[facility] [address] [place], [address] Bilirubin [Mass/Vol] 0.80 mg/dL Normal 0.20-1.00 [facility] Comment on above: Result Comment: For patients on eltrombopag therapy, use of Dimension [place] TBIL is not recommended. Performed By: #### L 100.0100, L501.5200, L500.2500, L500.3400, L501.2300 ####[facility] [address] [place], [address] Bilirubin.direct [Mass/Vol] 0.20 mg/dL Normal 0.00-0.30 [facility] Comment on above: Performed By: #### L 100.0100, L501.5200, L500.2500, L500.3400, L501.2300 ####[facility] [address] [place], [address] Globulin (S) [Mass/Vol] 5.6 g/dL High 2.2-4.2 [facility] Comment on above: Performed By: #### L 100.0100, L501.5200, L500.2500, L500.3400, L501.2300 ####[facility] [address] [place], [address] T PROT 8.3 g/dL High 6.4-8.2 [facility] Comment on above: Performed By: #### L 100.0100, L501.5200, L500.2500, L500.3400, L501.2300 ####[facility] [address] [place], [address] M8200.1000on 04-14-2024 M8200.1000 Normal Reference Ran ge = Negative MRSA DNA Nose Ql FLORES+probe GeneXpert Instrument, PCR method MRSA PCR MRSA NEGATIVE Normal [facility] Comment on above: Performed By: #### M 8200.1000, M300.4600 ####[facility] [address] [place], [address] Magnesiumon 04-14-2024 Magnesium [Mass/Vol] 2.5 mg/dL Normal 1.6-2.6 [facility] Comment on above: Performed By: #### L 100.0100, L501.5200, L500.2500, L500.3400, L501.2300 ####[facility] [address] [place], [address] Magnesium measurementOrdered By: Cuco Soler on 04-14-2024 Magnesium [Mass/Vol] 2.5 mg/dL 1.6-2.6 [facility] Nasal methicillin resistant Staphylococcus aureus (MRSA) DNA detection by PCROrdered By: Cuco Soler on 04-14-2024 MRSA DNA FLORES+probe Ql (Nose) [facility] No Panel InformationOrdered By: Cuco Soler on 04-14-2024 16 U/L 15-37 [facility] Phosphoruson 04-14-2024 Phosphate [Mass/Vol] 4.4 mg/dL Normal 2.5-4.9 [facility] Comment on above: Performed By: #### L 100.0100, L501.5200, L500.2500, L500.3400, L501.2300 ####[facility] [address] [place], [address] Procalcitoninon 04-14-2024 Procalcitonin 0.18 ng/mL High 0.00-0.09 [facility] Comment on above: Result Comment: A pr [...] are obtained. Performed By: #### L 509.7000 ####[facility] [address] [place], [address] Serum globulin measurementOr dered By: Cuco Soler on 04-14-2024 Globulin (S) [Mass/Vol] 5.6 g/dL High 2.2-4.2 [facility] Serum or plasma alanine briscoe otransferase (ALT) measurementOrdered By: Cuco Soler on 04-14-2024 ALT [Catalytic activity/Vol] 19 U/L 16-61 [facility] Serum or plasma albumin grazyna urement (mass/volume)Ordered By: Cuco Soler on 04-14-2024 Albumin [Mass/Vol] 2.7 g/dL Low 3.2-5.0 [facility] Serum or plasma alkaline benjamin sphatase measurementOrdered By: Cuco Soler on 04-14-2024 ALP [Catalytic activity/Vol] 77 U/L 45-117 [facility] Serum procalcitonin measurem entOrdered By: Fran Rodriguez on 04-14-2024 Procalcitonin [Mass/Vol] 0.18 ng/mL High 0.00-0.09 [facility] Strep pneumoniae Antig(UR,CS F)on 04-14-2024 STPAG Normal [facility] Comment on above: Performed By: #### M 8200.1000, M300.4600 ####[facility] [address] [place], [address] Total proteinOrdered By: Wilder geminifred Soler on 04-14-2024 Protein [Mass/Vol] 8.3 g/dL High 6.4-8.2 [facility] 6 Minute Walk Teston 025 6 Minute Walk Test Normal [facility] Basic Metabolic Profile (BMP )on 04-13-2024 BUN/CRE 17.1 RATIO Normal 10-20 [facility] Comment on above: Performed By: #### L 501.5200, L500.2500, L501.2300, L100.0100 ####[facility] [address] [place], [address] CA,Total 8.9 mg/dL Normal 8.5-10.1 [facility] Comment on above: Performed By: #### L 501.5200, L500.2500, L501.2300, L100.0100 ####[facility] [address] [place], [address] Chloride [Moles/Vol] 101 mmol/L Normal 98-107 [facility] Comment on above: Performed By: #### L 501.5200, L500.2500, L501.2300, L100.0100 ####[facility] [address] [place], [address] CO2 [Moles/Vol] 27.0 mmol/L Normal 21.0-32.0 [facility] Comment on above: Performed By: #### L 501.5200, L500.2500, L501.2300, L100.0100 ####[facility] [address] [place], [address] Creatinine [Mass/Vol] 1.17 mg/dL Normal 0.70-1.30 [facility] Comment on above: Result Comment: The validity of the calculated GFR GFRAA in patients over70 years has not been determined. Clinical correlation isessential. Performed By: #### L 501.5200, L500.2500, L501.2300, L100.0100 ####[facility] [address] [place], [address] ECRCL 93.62 ml/min Normal [facility] Comment on above: Performed By: #### L 501.5200, L500.2500, L501.2300, L100.0100 ####[facility] [address] [place], [address] EST GFR - AA 82 mL/min Normal >60 [facility] Comment on above: Result Comment: Afri can Citizen [place] GFR Calc Performed By: #### L 501.5200, L500.2500, L501.2300, L100.0100 ####[facility] [address] [place], [address] GAP 6 Normal 5-15 [facility] Comment on above: Performed By: #### L 501.5200, L500.2500, L501.2300, L100.0100 ####[facility] [address] [place], [address] GFR/1.73 sq M.predicted among non-blacks MDRD (S/P/Bld) [Vol rate/Area] 67 mL/min/{1.73_m2} Normal >60 [facility] Comment on above: Result Comment: Non- GFR Calc Performed By: #### L 501.5200, L500.2500, L501.2300, L100.0100 ####[facility] [address] [place], [address] Glucose [Mass/Vol] 193 mg/dL High 74-106 [facility] Comment on above: Result Comment: Fast ing Glucose result greater than or equal to 126 mg/dLsuggests DIABETES MELLITUS per A.D.A. criteria. Performed By: #### L 501.5200, L500.2500, L501.2300, L100.0100 ####[facility] [address] [place], [address] Potassium [Moles/Vol] 3.6 mmol/L Normal 3.5-5.1 [facility] Comment on above: Performed By: #### L 501.5200, L500.2500, L501.2300, L100.0100 ####[facility] [address] [place], [address] Sodium [Moles/Vol] 134 mmol/L Low 136-145 [facility] Comment on above: Performed By: #### L 501.5200, L500.2500, L501.2300, L100.0100 ####[facility] [address] [place], [address] Urea nitrogen [Mass/Vol] 20 mg/dL High 7-18 [facility] Comment on above: Performed By: #### L 501.5200, L500.2500, L501.2300, L100.0100 ####[facility] [address] [place], [address] Bedside Glucoseon 04-13-2024 FINGERSTICK GLU 190 mg/dL High 74-106 [facility] Comment on above: Result Comment: ANI BRADFORD OF PATIENT CARE PER NURSING PROTOCOL Performed By: #### L 501.080 ####[facility] [address] [place], [address] CBC W/Diff, Automatedon 04-01 Absolute Lymph 1.53 X10 3/uL Normal 0.83-4.51 [facility] Comment on above: Performed By: #### L 501.5200, L500.2500, L501.2300, L100.0100 ####[facility] [address] [place], [address] Absolute Neut 7.3 X10 3/uL Normal 2.0-7.7 [facility] Comment on above: Performed By: #### L 501.5200, L500.2500, L501.2300, L100.0100 ####[facility] [address] [place], [address] Basophils/100 WBC (Bld) 0.5 % Normal 0-1 [facility] Comment on above: Performed By: #### L 501.5200, L500.2500, L501.2300, L100.0100 ####[facility] [address] [place], [address] Eosinophils/100 WBC (Bld) 3.7 % Normal 0-5 [facility] Comment on above: Performed By: #### L 501.5200, L500.2500, L501.2300, L100.0100 ####[facility] [address] [place], [address] Erythrocyte distribution width (RBC) [Ratio] 19.9 % High 11.6-14.6 [facility] Comment on above: Performed By: #### L 501.5200, L500.2500, L501.2300, L100.0100 ####[facility] [address] [place], [address] Hematocrit (Bld) [Volume fraction] 26.7 % Low 40-54 [facility] Comment on above: Performed By: #### L 501.5200, L500.2500, L501.2300, L100.0100 ####[facility] [address] [place], [address] Hemoglobin (Bld) [Mass/Vol] 7.7 g/dL Low 13.0-16.5 [facility] Comment on above: Performed By: #### L 501.5200, L500.2500, L501.2300, L100.0100 ####[facility] [address] [place], [address] IG% 0.300 Normal 0.0-0.9 [facility] Comment on above: Result Comment: IG% - Immature Granulocytes (promyelocytes, myelocytes andmetamyelocytes) > 1% indicates that a LEFT SHIFT is Present. Performed By: #### L 501.5200, L500.2500, L501.2300, L100.0100 ####[facility] [address] [place], [address] Lymphocytes/100 WBC (Bld) 14.9 % Low 19-41 [facility] Comment on above: Performed By: #### L 501.5200, L500.2500, L501.2300, L100.0100 ####[facility] [address] [place], [address] MCH (RBC) [Entitic mass] 21.6 pg Low 27.0-32.0 [facility] Comment on above: Performed By: #### L 501.5200, L500.2500, L501.2300, L100.0100 ####[facility] [address] [place], [address] MCHC (RBC) [Mass/Vol] 28.8 g/dL Low 32-36 [facility] Comment on above: Performed By: #### L 501.5200, L500.2500, L501.2300, L100.0100 ####[facility] [address] [place], [address] MCV (RBC) [Entitic vol] 74.8 fL Low 80-94 [facility] Comment on above: Performed By: #### L 501.5200, L500.2500, L501.2300, L100.0100 ####[facility] [address] [place], [address] Monocytes/100 WBC (Bld) 9.8 % Normal 0-10 [facility] Comment on above: Performed By: #### L 501.5200, L500.2500, L501.2300, L100.0100 ####[facility] [address] [place], [address] Neutrophils/100 WBC (Bld) 70.8 % High 47-70 [facility] Comment on above: Performed By: #### L 501.5200, L500.2500, L501.2300, L100.0100 ####[facility] [address] [place], [address] Nucleated RBC (Bld) [#/Vol] 0 10*3/uL Normal 0-5 [facility] Comment on above: Performed By: #### L 501.5200, L500.2500, L501.2300, L100.0100 ####[facility] [address] [place], [address] Platelet mean volume (Bld) [Entitic vol] 9.6 fL Normal 6.2-12.0 [facility] Comment on above: Performed By: #### L 501.5200, L500.2500, L501.2300, L100.0100 ####[facility] [address] [place], [address] Platelets (Bld) [#/Vol] 289 10*3/uL Normal 150-450 [facility] Comment on above: Performed By: #### L 501.5200, L500.2500, L501.2300, L100.0100 ####[facility] [address] [place], [address] RBC (Bld) [#/Vol] 3.57 10*6/uL Low 4.6-6.2 [facility] Comment on above: Performed By: #### L 501.5200, L500.2500, L501.2300, L100.0100 ####[facility] [address] [place], [address] RDW SD 53.8 fl High 35.1-43.9 [facility] Comment on above: Performed By: #### L 501.5200, L500.2500, L501.2300, L100.0100 ####[facility] [address] [place], [address] WBC (Bld) [#/Vol] 10.3 10*3/uL Normal 4.4-11.0 [facility] Comment on above: Performed By: #### L 501.5200, L500.2500, L501.2300, L100.0100 ####[facility] [address] [place], [address] Chest without Contraston Chest without Contrast Normal [facility] Legionella Antigen Urineon 0 04-13-2024 LEGU Normal [facility] Comment on above: Performed By: #### M 300.4500 ####[facility] [address] [place], [address] Magnesiumon 04-13-2024 Magnesium [Mass/Vol] 2.3 mg/dL Normal 1.6-2.6 [facility] Comment on above: Performed By: #### L 501.5200, L500.2500, L501.2300, L100.0100 ####[facility] [address] [place], [address] Phosphoruson 04-13-2024 Phosphate [Mass/Vol] 4.4 mg/dL Normal 2.5-4.9 [facility] Comment on above: Performed By: #### L 501.5200, L500.2500, L501.2300, L100.0100 ####[facility] [address] [place], [address] RESPIRATORY PANEL MOLECULARo n 04-13-2024 RP PANEL Normal [facility] Comment on above: Performed By: #### M 100.638 ####[facility] [address] [place], [address] Respiratory pathogens detect ion panel by molecular detection methodOrdered By: Cuco Soler on 04-13-2024 Respiratory pathogens DNA and RNA panel FLORES+probe (Resp) [facility] Urine Legionella pneumophila antigen detectionOrdered By: Cuco Soler on 04-13-2024 L. pneumophila Ag Ql (U) [facility] 12 Lead EKGon 04-12-2024 12 Lead EKG Normal [facility] BNP (brain natriuretic pepti de measurement)Ordered By: Luli Alex on 04-12-2024 Natriuretic peptide B (Bld) [Mass/Vol] 124.0 pg/mL High 0-100 [facility] BNP,B-Type NATRIURETIC PEPTI Sindy 04-12-2024 Natriuretic peptide B (Bld) [Mass/Vol] 124.0 pg/mL High 0-100 [facility] Comment on above: Performed By: #### L 503.6620, L500.2500, L100.0100 ####[facility] [address] [place], [address] Basic Metabolic Profile (BMP )on 04-12-2024 BUN/CRE 16.5 RATIO Normal 10-20 [facility] Comment on above: Order Comment: REDRA W. PREVIOUS SPECIMEN REJECTED DUE TOHEMOLYSIS. 04/12/24 1220 Sharon Sandoval.1 Performed By: #### L 500.2500, L501.4020 ####[facility] [address] [place], [address] CA,Total 9.4 mg/dL Normal 8.5-10.1 [facility] Comment on above: Order Comment: REDRA W. PREVIOUS SPECIMEN REJECTED DUE TOHEMOLYSIS. 04/12/24 1220 Sharon Frankzano.1 Performed By: #### L 500.2500, L501.4020 ####[facility] [address] [place], [address] Chloride [Moles/Vol] 105 mmol/L Normal 98-107 [facility] Comment on above: Order Comment: REDRA W. PREVIOUS SPECIMEN REJECTED DUE TOHEMOLYSIS. 04/12/24 1220 Sharon Sandoval.1 Performed By: #### L 500.2500, L501.4020 ####[facility] [address] [place], [address] CO2 [Moles/Vol] 26.0 mmol/L Normal 21.0-32.0 [facility] Comment on above: Order Comment: REDRA W. PREVIOUS SPECIMEN REJECTED DUE TOHEMOLYSIS. 04/12/240 Sharon Sandoval.1 Performed By: #### L 500.2500, L501.4020 ####[facility] [address] [place], [address] Creatinine [Mass/Vol] 0.97 mg/dL Normal 0.70-1.30 [facility] Comment on above: Order Comment: REDRA W. PREVIOUS SPECIMEN REJECTED DUE TOHEMOLYSIS. 04/12/240 Sharon Sandoval.1 Result Comment: The validity of the calculated GFR GFRAA in patients over70 years has not been determined. Clinical correlation isessential. Performed By: #### L 500.2500, L501.4020 ####[facility] [address] [place], [address] EST GFR - AA 101 mL/min Normal >60 [facility] Comment on above: Order Comment: REDRA W. PREVIOUS SPECIMEN REJECTED DUE TOHEMOLYSIS. 04/12/24 1220 Sharon Sandoval.1 Result Comment: Afri can Citizen [place] GFR Calc Performed By: #### L 500.2500, L501.4020 ####[facility] [address] [place], [address] GAP 3 Low 5-15 [facility] Comment on above: Order Comment: REDRA W. PREVIOUS SPECIMEN REJECTED DUE TOHEMOLYSIS. 04/12/24 1220 Sharon Sandoval.1 Performed By: #### L 500.2500, L501.4020 ####[facility] [address] [place], [address] GFR/1.73 sq M.predicted among non-blacks MDRD (S/P/Bld) [Vol rate/Area] 84 mL/min/{1.73_m2} Normal >60 [facility] Comment on above: Order Comment: REDRA W. PREVIOUS SPECIMEN REJECTED DUE TOHEMOLYSIS. 04/12/24 1220 Sharon Sandoval.1 Result Comment: Non- GFR Calc Performed By: #### L 500.2500, L501.4020 ####[facility] [address] [place], [address] Glucose [Mass/Vol] 124 mg/dL High 74-106 [facility] Comment on above: Order Comment: REDRA W. PREVIOUS SPECIMEN REJECTED DUE TOHEMOLYSIS. 04/12/24 1220 Sharon Sandoval.1 Result Comment: Fast ing Glucose result from 100 to 125 mg/dLsuggests IMPAIRED HOMEOSTASIS per A.D.A. criteria. Performed By: #### L 500.2500, L501.4020 ####[facility] [address] [place], [address] Potassium [Moles/Vol] 3.7 mmol/L Normal 3.5-5.1 [facility] Comment on above: Order Comment: REDRA W. PREVIOUS SPECIMEN REJECTED DUE TOHEMOLYSIS. 04/12/24 1220 Sharon Sandoval.1 Performed By: #### L 500.2500, L501.4020 ####[facility] [address] [place], [address] Sodium [Moles/Vol] 134 mmol/L Low 136-145 [facility] Comment on above: Order Comment: REDRA W. PREVIOUS SPECIMEN REJECTED DUE TOHEMOLYSIS. 04/12/24 1220 Sharon Sandoval.1 Performed By: #### L 500.2500, L501.4020 ####[facility] [address] [place], [address] Urea nitrogen [Mass/Vol] 16 mg/dL Normal 7-18 [facility] Comment on above: Order Comment: NEETU Giles. PREVIOUS SPECIMEN REJECTED DUE TOHEMOLYSIS. 04/12/24 1220 Sharon Sandoval.1 Performed By: #### L 500.2500, L501.4020 ####[facility] [address] [place], [address] BUN Normal 7-18 [facility] Comment on above: Order Comment: 'TROP ' Serial specimen #1, #2 or #3: 1 Result Comment: This specimen has been REJECTED due to Laboratory criteria:Hemolyzed.PORSCHE has been notified of need of recollection.04/12/24 1218 Sharon Frankzano Performed By: #### L 503.6620, L500.2500, L100.0100 ####[facility] [address] [place], [address] BUN/CRE Normal 10-20 [facility] Comment on above: Order Comment: 'TROP ' Serial specimen #1, #2 or #3: 1 Result Comment: This specimen has been REJECTED due to Laboratory criteria:Hemolyzed.PORSCHE has been notified of need of recollection.04/12/24 1218 Sharon Sandoval Performed By: #### L 503.6620, L500.2500, L100.0100 ####[facility] [address] [place], [address] CA,Total Normal 8.5-10.1 [facility] Comment on above: Order Comment: 'TROP ' Serial specimen #1, #2 or #3: 1 Result Comment: This specimen has been REJECTED due to Laboratory criteria:Hemolyzed.PORSCHE has been notified of need of recollection.04/12/24 1218 Sharon Sandoval Performed By: #### L 503.6620, L500.2500, L100.0100 ####[facility] [address] [place], [address] CL Normal 98-107 [facility] Comment on above: Order Comment: 'TROP ' Serial specimen #1, #2 or #3: 1 Result Comment: This specimen has been REJECTED due to Laboratory criteria:Hemolyzed.PORSCHE has been notified of need of recollection.04/12/24 1218 Sharon Sandoval Performed By: #### L 503.6620, L500.2500, L100.0100 ####[facility] [address] [place], [address] CO2 Normal 21.0-32.0 [facility] Comment on above: Order Comment: 'TROP ' Serial specimen #1, #2 or #3: 1 Result Comment: This specimen has been REJECTED due to Laboratory criteria:Hemolyzed.PORSCHE has been notified of need of recollection.04/12/24 1218 Sharon Sandoval Performed By: #### L 503.6620, L500.2500, L100.0100 ####[facility] [address] [place], [address] CREAT,SERUM Normal 0.70-1.30 [facility] Comment on above: Order Comment: 'TROP ' Serial specimen #1, #2 or #3: 1 Result Comment: This specimen has been REJECTED due to Laboratory criteria:Hemolyzed.ELOISAE has been notified of need of recollection.04/12/248 Sharon Sandoval Performed By: #### L 503.6620, L500.2500, L100.0100 ####[facility] [address] [place], [address] EST GFR Normal >60 [facility] Comment on above: Order Comment: 'TROP ' Serial specimen #1, #2 or #3: 1 Result Comment: This specimen has been REJECTED due to Laboratory criteria:Hemolyzed.PORSCHE has been notified of need of recollection.04/12/24 1218 Sharon Sandoval Performed By: #### L 503.6620, L500.2500, L100.0100 ####[facility] [address] [place], [address] EST GFR - AA Normal >60 [facility] Comment on above: Order Comment: 'TROP ' Serial specimen #1, #2 or #3: 1 Result Comment: This specimen has been REJECTED due to Laboratory criteria:Hemolyzed.CHRISILIE has been notified of need of recollection.04/12/24 1218 Sharon Sandoval Performed By: #### L 503.6620, L500.2500, L100.0100 ####[facility] [address] [place], [address] GAP Normal 5-15 [facility] Comment on above: Order Comment: 'TROP ' Serial specimen #1, #2 or #3: 1 Result Comment: This specimen has been REJECTED due to Laboratory criteria:Hemolyzed.LORILIE has been notified of need of recollection.04/12/24 1218 Sharon Sandoval Performed By: #### L 503.6620, L500.2500, L100.0100 ####[facility] [address] [place], [address] GLU Normal 74-106 [facility] Comment on above: Order Comment: 'TROP ' Serial specimen #1, #2 or #3: 1 Result Comment: This specimen has been REJECTED due to Laboratory criteria:Hemolyzed.LORILIE has been notified of need of recollection.04/12/24 1218 Sharon Sandoval Performed By: #### L 503.6620, L500.2500, L100.0100 ####[facility] [address] [place], [address] Potassium Normal 3.5-5.1 [facility] Comment on above: Order Comment: 'TROP ' Serial specimen #1, #2 or #3: 1 Result Comment: This specimen has been REJECTED due to Laboratory criteria:Hemolyzed.LORILIE has been notified of need of recollection.04/12/24 1218 Sharon Sandoval Performed By: #### L 503.6620, L500.2500, L100.0100 ####[facility] [address] [place], [address] Basic Metabolic Profile (BMP) Normal 136-145 [facility] Comment on above: Order Comment: 'TROP ' Serial specimen #1, #2 or #3: 1 Result Comment: This specimen has been REJECTED due to Laboratory criteria:Hemolyzed.PORSCHE has been notified of need of recollection.04/12/24 1218 Sharon Sandoval Performed By: #### L 503.6620, L500.2500, L100.0100 ####[facility] [address] [place], [address] Bedside Glucoseon 04-12-2024 FINGERSTICK GLU 161 mg/dL High 74-106 [facility] Comment on above: Result Comment: ANI GEMENT OF PATIENT CARE PER NURSING PROTOCOL Performed By: #### L 501.080 ####[facility] [address] [place], [address] FINGERSTICK GLU 159 mg/dL High 74-106 [facility] Comment on above: Result Comment: ANI GEMENT OF PATIENT CARE PER NURSING PROTOCOL Performed By: #### L 501.080 ####[facility] [address] [place], [address] Blood cultureOrdered By: Katherin Alex on 04-12-2024 Bacteria identified Cx Nom (Bld) No growth in 5 days. [facility] Bacteria identified Cx Nom (Bld) Presumptive Micrococcus spp. Abnormal [facility] CBC W/Diff, Automatedon 04-01 Absolute Lymph 0.90 X10 3/uL Normal 0.83-4.51 [facility] Comment on above: Performed By: #### L 100.0100 ####[facility] [address] [place], [address] Absolute Neut 9.6 X10 3/uL High 2.0-7.7 [facility] Comment on above: Performed By: #### L 100.0100 ####[facility] [address] [place], [address] Basophils/100 WBC (Bld) 0.3 % Normal 0-1 [facility] Comment on above: Performed By: #### L 100.0100 ####[facility] [address] [place], [address] Eosinophils/100 WBC (Bld) 2.1 % Normal 0-5 [facility] Comment on above: Performed By: #### L 100.0100 ####[facility] [address] [place], [address] Erythrocyte distribution width (RBC) [Ratio] 20.1 % High 11.6-14.6 [facility] Comment on above: Performed By: #### L 100.0100 ####[facility] [address] [place], [address] Hematocrit (Bld) [Volume fraction] 28.3 % Low 40-54 [facility] Comment on above: Performed By: #### L 100.0100 ####[facility] [address] [place], [address] Hemoglobin (Bld) [Mass/Vol] 8.2 g/dL Low 13.0-16.5 [facility] Comment on above: Performed By: #### L 100.0100 ####[facility] [address] [place], [address] IG% 0.400 Normal 0.0-0.9 [facility] Comment on above: Result Comment: IG% - Immature Granulocytes (promyelocytes, myelocytes andmetamyelocytes) > 1% indicates that a LEFT SHIFT is Present. Performed By: #### L 100.0100 ####[facility] [address] [place], [address] Lymphocytes/100 WBC (Bld) 7.5 % Low 19-41 [facility] Comment on above: Performed By: #### L 100.0100 ####[facility] [address] [place], [address] MCH (RBC) [Entitic mass] 21.7 pg Low 27.0-32.0 [facility] Comment on above: Performed By: #### L 100.0100 ####[facility] [address] [place], [address] MCHC (RBC) [Mass/Vol] 29.0 g/dL Low 32-36 [facility] Comment on above: Performed By: #### L 100.0100 ####[facility] [address] [place], [address] MCV (RBC) [Entitic vol] 74.9 fL Low 80-94 [facility] Comment on above: Performed By: #### L 100.0100 ####[facility] [address] [place], [address] Monocytes/100 WBC (Bld) 9.4 % Normal 0-10 [facility] Comment on above: Performed By: #### L 100.0100 ####[facility] [address] [place], [address] Neutrophils/100 WBC (Bld) 80.3 % High 47-70 [facility] Comment on above: Performed By: #### L 100.0100 ####[facility] [address] [place], [address] Nucleated RBC (Bld) [#/Vol] 0 10*3/uL Normal 0-5 [facility] Comment on above: Performed By: #### L 100.0100 ####[facility] [address] [place], [address] Platelet mean volume (Bld) [Entitic vol] 9.6 fL Normal 6.2-12.0 [facility] Comment on above: Performed By: #### L 100.0100 ####[facility] [address] [place], [address] Platelets (Bld) [#/Vol] 282 10*3/uL Normal 150-450 [facility] Comment on above: Performed By: #### L 100.0100 ####[facility] [address] [place], [address] RBC (Bld) [#/Vol] 3.78 10*6/uL Low 4.6-6.2 [facility] Comment on above: Performed By: #### L 100.0100 ####[facility] [address] [place], [address] RDW SD 54.1 fl High 35.1-43.9 [facility] Comment on above: Performed By: #### L 100.0100 ####[facility] [address] [place], [address] WBC (Bld) [#/Vol] 12.0 10*3/uL High 4.4-11.0 [facility] Comment on above: Performed By: #### L 100.0100 ####[facility] [address] [place], [address] Absolute Lymph 0.90 X10 3/uL Normal 0.83-4.51 [facility] Comment on above: Performed By: #### L 503.6620, L500.2500, L100.0100 ####[facility] [address] [place], [address] Absolute Neut 9.9 X10 3/uL High 2.0-7.7 [facility] Comment on above: Performed By: #### L 503.6620, L500.2500, L100.0100 ####[facility] [address] [place], [address] Basophils/100 WBC (Bld) 0.4 % Normal 0-1 [facility] Comment on above: Performed By: #### L 503.6620, L500.2500, L100.0100 ####[facility] [address] [place], [address] Eosinophils/100 WBC (Bld) 2.3 % Normal 0-5 [facility] Comment on above: Performed By: #### L 503.6620, L500.2500, L100.0100 ####[facility] [address] [place], [address] Erythrocyte distribution width (RBC) [Ratio] 19.9 % High 11.6-14.6 [facility] Comment on above: Performed By: #### L 503.6620, L500.2500, L100.0100 ####[facility] [address] [place], [address] Hematocrit (Bld) [Volume fraction] 27.8 % Low 40-54 [facility] Comment on above: Performed By: #### L 503.6620, L500.2500, L100.0100 ####[facility] [address] [place], [address] Hemoglobin (Bld) [Mass/Vol] 8.2 g/dL Low 13.0-16.5 [facility] Comment on above: Performed By: #### L 503.6620, L500.2500, L100.0100 ####[facility] [address] [place], [address] IG% 0.400 Normal 0.0-0.9 [facility] Comment on above: Result Comment: IG% - Immature Granulocytes (promyelocytes, myelocytes andmetamyelocytes) > 1% indicates that a LEFT SHIFT is Present. Performed By: #### L 503.6620, L500.2500, L100.0100 ####[facility] [address] [place], [address] Lymphocytes/100 WBC (Bld) 7.4 % Low 19-41 [facility] Comment on above: Performed By: #### L 503.6620, L500.2500, L100.0100 ####[facility] [address] [place], [address] MCH (RBC) [Entitic mass] 22.1 pg Low 27.0-32.0 [facility] Comment on above: Performed By: #### L 503.6620, L500.2500, L100.0100 ####[facility] [address] [place], [address] MCHC (RBC) [Mass/Vol] 29.5 g/dL Low 32-36 [facility] Comment on above: Performed By: #### L 503.6620, L500.2500, L100.0100 ####[facility] [address] [place], [address] MCV (RBC) [Entitic vol] 74.9 fL Low 80-94 [facility] Comment on above: Performed By: #### L 503.6620, L500.2500, L100.0100 ####[facility] [address] [place], [address] Monocytes/100 WBC (Bld) 8.5 % Normal 0-10 [facility] Comment on above: Performed By: #### L 503.6620, L500.2500, L100.0100 ####[facility] [address] [place], [address] Neutrophils/100 WBC (Bld) 81.0 % High 47-70 [facility] Comment on above: Performed By: #### L 503.6620, L500.2500, L100.0100 ####[facility] [address] [place], [address] Nucleated RBC (Bld) [#/Vol] 0 10*3/uL Normal 0-5 [facility] Comment on above: Performed By: #### L 503.6620, L500.2500, L100.0100 ####[facility] [address] [place], [address] Platelet mean volume (Bld) [Entitic vol] 10.5 fL Normal 6.2-12.0 [facility] Comment on above: Performed By: #### L 503.6620, L500.2500, L100.0100 ####[facility] [address] [place], [address] Platelets (Bld) [#/Vol] 349 10*3/uL Normal 150-450 [facility] Comment on above: Performed By: #### L 503.6620, L500.2500, L100.0100 ####[facility] [address] [place], [address] RBC (Bld) [#/Vol] 3.71 10*6/uL Low 4.6-6.2 [facility] Comment on above: Performed By: #### L 503.6620, L500.2500, L100.0100 ####[facility] [facility] [address] [place], [address] RDW SD 53.1 fl High 35.1-43.9 [facility] Comment on above: Performed By: #### L 503.6620, L500.2500, L100.0100 ####[facility] [address] [place], [address] WBC (Bld) [#/Vol] 12.2 10*3/uL High 4.4-11.0 [facility] Comment on above: Performed By: #### L 503.6620, L500.2500, L100.0100 ####[facility] [address] [place], [address] CO2 (BldV) [Moles/Vol]Ordere d By: Luli Alex on 04-12-2024 CO2 [Moles/Vol] 24 mmol/L 23-33 [facility] Chest 1 View (Portable)on Chest 1 View (Portable) Normal [facility] Emergency Department Summary on 04-12-2024 Emergency Department Summary Normal [facility] H AND P Exam - Hospitaliston 04-12-2024 H&P Exam - Hospitalist Normal [facility] Influenza virus A and B and SARS-CoV-2 (COVID-19) and Respiratory syncytial virus RNAOrdered By: Luli Alex on 04-12-2024 SARS-CoV-2 (COVID-19) RNA FLORES+probe Ql (Unsp spec) [facility] L501.4020on 04-12-2024 TROPONIN-I HS 12 pg/mL Normal 3.0-78.0 [facility] Comment on above: Order Comment: Comme nts: SPECIMEN #3'TROP' Serial specimen #1, #2 or #3: 3 Result Comment: Plea se Note: New Test Units and Gender Specific Reference Ranges. For more information see Policy Stat Procedure [facility] High Sensitivity Troponin (TNIH) and attachments. Performed By: #### L 501.4020 ####[facility] [address] [place], [address] TROPONIN-I HS 18 pg/mL Normal 3.0-78.0 [facility] Comment on above: Order Comment: Comme nts: SPECIMEN #2'TROP' Serial specimen #1, #2 or #3: 2 Result Comment: Plea se Note: New Test Units and Gender Specific Reference Ranges. For more information see Policy Stat Procedure [facility] High Sensitivity Troponin (TNIH) and attachments. Performed By: #### L 501.4020 ####[facility] [address] [place], [address] TROPONIN-I HS 16 pg/mL Normal 3.0-78.0 [facility] Comment on above: Order Comment: NEETU Giles. PREVIOUS SPECIMEN REJECTED DUE TOHEMOLYSIS. 04/12/24 1220 Sharon Sandoval.1 Result Comment: Plea se Note: New Test Units and Gender Specific Reference Ranges. For more information see Policy Stat Procedure [facility] High Sensitivity Troponin (TNIH) and attachments. Performed By: #### L 500.2500, L501.4020 ####[facility] [address] [place], [address] M100.678on 04-12-2024 M100.678 Pending SARS-CoV-2 (COVID 19) Negative INFLUENZA A Negative INFLUENZA B Negative RSV PCR Negative Normal [facility] Comment on above: Performed By: #### M 100.678 ####[facility] [address] [place], [address] No Panel InformationOrdered By: Luli Alex on 04-12-2024 JOSHUA [facility] Not entered [facility] Cannula [facility] Organism identificationOrder ed By: Luli Alex on 04-12-2024 Microorganism identified Cx Nom (Unsp spec) [facility] Troponin IOrdered By: Eduin Ospina on 04-12-2024 Troponin I 12 pg/mL 3.0-78.0 [facility] Venous Blood Gason 5 Blood Gas Type JOSHUA Normal [facility] Comment on above: Performed By: #### L 9000.0810 ####[facility] [address] [place], [address] CO2 [Moles/Vol] 24 mmol/L Normal 23-33 [facility] Comment on above: Performed By: #### L 9000.0810 ####[facility] [address] [place], [address] FI02 5.0 Normal [facility] Comment on above: Performed By: #### L 9000.0810 ####[facility] [address] [place], [address] HCO3 (Bld) [Moles/Vol] 23 mmol/L Normal 22-26 [facility] Comment on above: Performed By: #### L 9000.0810 ####[facility] [address] [place], [address] O2 Delivery Dev Cannula Normal [facility] Comment on above: Performed By: #### L 9000.0810 ####[facility] [address] [place], [address] SITE Not entered Normal [facility] Comment on above: Performed By: #### L 9000.0810 ####[facility] [address] [place], [address] VBG BE -1 mmol/L Normal -1.0-3.5 [facility] Comment on above: Performed By: #### L 9000.0810 ####[facility] [address] [place], [address] VBG pCO2 34.8 mmHg Low 41-51 [facility] Comment on above: Performed By: #### L 9000.0810 ####[facility] [address] [place], [address] VBG pH 7.43 High 7.32-7.42 [facility] Comment on above: Performed By: #### L 9000.0810 ####[facility] [address] [place], [address] VBG PO2 30 mmHg Normal 25-40 [facility] Comment on above: Performed By: #### L 9000.0810 ####[facility] [address] [place], [address] VBG SO2 60 Normal 50-70 [facility] Comment on above: Performed By: #### L 9000.0810 ####[facility] [address] [place], [address] Venous blood base excess elizabeth surementOrdered By: Luli Alex on 04-12-2024 Base excess Calc (BldV) [Moles/Vol] -1 mmol/L -1.0-3.5 [facility] Venous blood bicarbonate elizabeth surementOrdered By: Luli Alex on 04-12-2024 HCO3 (Bld) [Moles/Vol] 23 mmol/L 22-26 [facility] Venous blood pH measurementO rdered By: Luli Alex on 04-12-2024 pH (BldV) 7.43 [pH] High 7.32-7.42 [facility] Venous blood partial pressur e of carbon dioxide measurementOrdered By: Luli Alex on 04-12-2024 CO2 (BldV) [Partial pressure] 34.8 mm[Hg] Low 41-51 [facility] Venous blood partial pressur e of oxygen measurementOrdered By: Luli Alex on 04-12-2024 Oxygen (BldV) [Partial pressure] 30 mm[Hg] 25-40 [facility] 36on 04-09-2024 36 Call ref #[id number] 000 NAN for CPT 48460 & 20033 Normal [facility] No Panel Informationon 04-07 1. There is [...] MD Electronically Signed Date/Time: 04/07/2024 12:27 AM [facility] [employer] Patient Name: KRUNAL LEOS : 1965 [id number] Exam Date/Time: 04/06/2024 13:31 Procedure: [facility] US CAROTID ARTERY DUPLEX BILATERAL Ordering Provider: [...] [employer] [facility] Sameer Etienne MD - 04/07/2024 Patient Name: KRUNAL LEOS : 1965 Exam Date/Time: 04/06/2024 13:31 Procedure: [facility] US CAROTID ARTERY DUPLEX BILATERAL Ordering Provider: [...] MD Electronically Signed Date/Time: 04/07/2024 12:27 AM [facility] US CAROTID ARTERY DUPLE X BILATERALon 04-07-2024 [facility] US CAROTID ARTERY DUPLEX BILATERAL Patient Name: KRUNAL LEOS : 1965 [id number] Exam Date/Time: 04/06/2024 13:31 Procedure: [facility] US CAROTID ARTERY DUPLEX BILATERAL Ordering Provider: [...] Signed Date/Time: 04/07/2024 12:27 AM EST Normal [facility] Office Visit Reporton 2023 Office Visit Report Normal [facility] Bedside Glucoseon 03-27-2024 FINGERSTICK GLU 195 mg/dL High 74-106 [facility] Comment on above: Result Comment: ANI GEMENT OF PATIENT CARE PER NURSING PROTOCOL Performed By: #### L 501.080 ####[facility] [address] [place], [address] Colonoscopy Reporton 024 Colonoscopy Report Normal [facility] EGD Reporton 03-27-2024 EGD Report Normal [facility] H Pylori (initial)on 024 H Pylori (initial) Normal [facility] Comment on above: Performed By: #### P H.PYLORI ####[facility] [address] [place], [address] MR/POSTOP.ANEon 03-27-2024 MR/POSTOP.ANE Normal [facility] MR/TRQUMGBK4uu 03-27-2024 MR/POSTOPAN2 Normal [facility] Surgery Specimen Level Dolores 03-27-2024 Surgery Specimen Level IV Normal [facility] Comment on above: Performed By: #### P SUIV ####[facility] [address] [place], [address] Pulmonary Visit Reporton Pulmonary Visit Report Normal [facility] MR/PAT.ANEon 03-20-2024 MR/PAT.ANE Normal [facility] Cardiology Visit Reporton Cardiology Visit Report Normal [facility] RICARDO w/ Reflex Mult Confirmon 03-05-2024 RICARDO,DIRECT Negative Normal Negative [facility] Comment on above: Result Comment: Perf ormed at: - [facility] [address] [id number] Director: Chance Morales PhD, Phone: [phone] Performed By: #### L 236.4274, G6995.1189, Z9855.3768, M5203.2334 ####[facility] [address] [place], [address] ANCAon 03-05-2024 Atypical pANCA <1:20 Normal Neg:<1:20 [facility] Comment on above: Result Comment: The atypical pANCA pattern has been observed in asignificant percentage of patients with ulcerative colitis,primary sclerosing cholangitis and autoimmune hepatitis. Performed By: #### L 505.7010, L3300.1200, L3100.5450, L4600.0100 ####[facility] [address] [place], [address] Cytoplasmic Ab <1:20 Normal Neg:<1:20 [facility] Comment on above: Performed By: #### L 505.7010, L3300.1200, L3100.5450, L4600.0100 ####[facility] [address] [place], [address] Perinuclear Ab. <1:20 Normal Neg:<1:20 [facility] Comment on above: Result Comment: The presence of positive fluorescence exhibiting P-ANCA orC-ANCA patterns alone is not specific for the diagnosis ofWegener's Granulomatosis (WG) or microscopic polyangiitis.Decisions about treatment should not be based solely onANCA IFA results. The [employer] AN[employer] Consensusrecommends follow up testing of positive sera with both LA-3 and MPO-ANCA enzyme immunoassays. As many as 5% serumsamples are positive only by EIA. Ref. AM J Clin Vvpjpb8506;[id number]:[phone]. Performed By: #### L 505.7010, L3300.1200, L3100.5450, L4600.0100 ####[facility] [address] [place], [place], [id number] CCP IgG Antibodieson 024 CCP IgG Ab. 6 units Normal 0-19 [facility] Comment on above: Result Comment: Nega tive <20 Weak positive 20 - 39 Moderate positive 40 - 59 Strong positive >59Performed at: [facility] [id number] Director: Chance Morales PhD, Phone: [phone] Performed By: #### L 505.7010, L3300.1200, L3100.5450, L4600.0100 ####[facility] [address] [place], [address] Discharge Instructionon Discharge Instruction Normal [facility] Rheumatoid Factoron 03-04-20 24 RHEUMATOID FAC 25.0 IU/mL High <15 [facility] Comment on above: Performed By: #### L 505.7010, L3300.1200, L3100.5450, L4600.0100 ####[facility] [address] [place], [address] CBC W/Diff, Automatedon Absolute Lymph 1.46 X10 3/uL Normal 0.83-4.51 [facility] Comment on above: Performed By: #### L 501.9520, L100.0100 ####[facility] [address] [place], [address] Absolute Neut 5.9 X10 3/uL Normal 2.0-7.7 [facility] Comment on above: Performed By: #### L 501.9520, L100.0100 ####[facility] [address] [place], [address] Basophils/100 WBC (Bld) 0.6 % Normal 0-1 [facility] Comment on above: Performed By: #### L 501.9520, L100.0100 ####[facility] [address] [place], [address] Eosinophils/100 WBC (Bld) 2.9 % Normal 0-5 [facility] Comment on above: Performed By: #### L 501.9520, L100.0100 ####[facility] [address] [place], [address] Erythrocyte distribution width (RBC) [Ratio] 17.6 % High 11.6-14.6 [facility] Comment on above: Performed By: #### L 501.9520, L100.0100 ####[facility] [address] [place], [address] Hematocrit (Bld) [Volume fraction] 31.2 % Low 40-54 [facility] Comment on above: Performed By: #### L 501.9520, L100.0100 ####[facility] [address] [place], [address] Hemoglobin (Bld) [Mass/Vol] 9.0 g/dL Low 13.0-16.5 [facility] Comment on above: Performed By: #### L 501.9520, L100.0100 ####[facility] [address] [place], [address] IG% 0.400 Normal 0.0-0.9 [facility] Comment on above: Result Comment: IG% - Immature Granulocytes (promyelocytes, myelocytes andmetamyelocytes) > 1% indicates that a LEFT SHIFT is Present. Performed By: #### L 501.95, L100.0100 ####[facility] [address] [place], [address] Lymphocytes/100 WBC (Bld) 17.2 % Low 19-41 [facility] Comment on above: Performed By: #### L 501.9519, L100.0100 ####[facility] [address] [place], [address] MCH (RBC) [Entitic mass] 21.9 pg Low 27.0-32.0 [facility] Comment on above: Performed By: #### L 501.95, L100.0100 ####[facility] [address] [place], [address] MCHC (RBC) [Mass/Vol] 28.8 g/dL Low 32-36 [facility] Comment on above: Performed By: #### L 501.9520, L100.0100 ####[facility] [address] [place], [address] MCV (RBC) [Entitic vol] 75.9 fL Low 80-94 [facility] Comment on above: Performed By: #### L 501.20, L100.0100 ####[facility] [address] [place], [address] Monocytes/100 WBC (Bld) 9.3 % Normal 0-10 [facility] Comment on above: Performed By: #### L 501.9519, L100.0100 ####[facility] [address] [place], [address] Neutrophils/100 WBC (Bld) 69.6 % Normal 47-70 [facility] Comment on above: Performed By: #### L 501.9519, L100.0100 ####[facility] [address] [place], [address] Nucleated RBC (Bld) [#/Vol] 0 10*3/uL Normal 0-5 [facility] Comment on above: Performed By: #### L 501.9519, L100.0100 ####[facility] [address] [place], [address] Platelet mean volume (Bld) [Entitic vol] 9.8 fL Normal 6.2-12.0 [facility] Comment on above: Performed By: #### L 501.9519, L100.0100 ####[facility] [address] [place], [address] Platelets (Bld) [#/Vol] 227 10*3/uL Normal 150-450 [facility] Comment on above: Performed By: #### L 501.9519, L100.0100 ####[facility] [address] [place], [address] RBC (Bld) [#/Vol] 4.11 10*6/uL Low 4.6-6.2 [facility] Comment on above: Performed By: #### L 501.9520, L100.0100 ####[facility] [address] [place], [address] RDW SD 47.8 fl High 35.1-43.9 [facility] Comment on above: Performed By: #### L 501.9520, L100.0100 ####[facility] [address] [place], [address] WBC (Bld) [#/Vol] 8.5 10*3/uL Normal 4.4-11.0 [facility] Comment on above: Performed By: #### L 501.9520, L100.0100 ####[facility] [address] [place], [address] Chest without Contraston Chest without Contrast Normal [facility] Consultation - Intensiviston 03-03-2024 Consultation - Manager Marketing Sales Normal [facility] RESPIRATORY PANEL MOLECULARo n 03-03-2024 RP PANEL Normal [facility] Comment on above: Performed By: #### M 100.638 ####[facility] [address] [place], [address] Thyroid Stim Hormone (TSH)on 03-03-2024 TSH 1.390 uIU/mL Normal 0.358-3.74 0 [facility] Comment on above: Performed By: #### L 501.9520, L100.0100 ####[facility] [address] [place], [address] 12 Lead EKGon 03-02-2024 12 Lead EKG Normal [facility] BNP,B-Type NATRIURETIC PEPTI Sindy 03-02-2024 Natriuretic peptide B (Bld) [Mass/Vol] 48.5 pg/mL Normal 0-100 [facility] Comment on above: Performed By: #### L 100.0100, L500.2500, L503.6620, L501.4020 ####[facility] [address] [place], [address] Basic Metabolic Profile (BMP )on 03-02-2024 BUN/CRE 23.3 RATIO High 10-20 [facility] Comment on above: Order Comment: 'TROP ' Serial specimen #1, #2 or #3: 1 Performed By: #### L 100.0100, L500.2500, L503.6620, L501.4020 ####[facility] [address] [place], [address] CA,Total 9.0 mg/dL Normal 8.5-10.1 [facility] Comment on above: Order Comment: 'TROP ' Serial specimen #1, #2 or #3: 1 Performed By: #### L 100.0100, L500.2500, L503.6620, L501.4020 ####[facility] [address] [place], [address] Chloride [Moles/Vol] 107 mmol/L Normal 98-107 [facility] Comment on above: Order Comment: 'TROP ' Serial specimen #1, #2 or #3: 1 Performed By: #### L 100.0100, L500.2500, L503.6620, L501.4020 ####[facility] [address] [place], [address] CO2 [Moles/Vol] 24.0 mmol/L Normal 21.0-32.0 [facility] Comment on above: Order Comment: 'TROP ' Serial specimen #1, #2 or #3: 1 Performed By: #### L 100.0100, L500.2500, L503.6620, L501.4020 ####[facility] [address] [place], [address] Creatinine [Mass/Vol] 1.03 mg/dL Normal 0.70-1.30 [facility] Comment on above: Order Comment: 'TROP ' Serial specimen #1, #2 or #3: 1 Result Comment: The validity of the calculated GFR GFRAA in patients over70 years has not been determined. Clinical correlation isessential. Performed By: #### L 100.0100, L500.2500, L503.6620, L501.4020 ####[facility] [address] [place], [address] ECRCL 107.77 ml/min Normal [facility] Comment on above: Order Comment: 'TROP ' Serial specimen #1, #2 or #3: 1 Performed By: #### L 100.0100, L500.2500, L503.6620, L501.4020 ####[facility] [address] [place], [address] EST GFR - AA 95 mL/min Normal >60 [facility] Comment on above: Order Comment: 'TROP ' Serial specimen #1, #2 or #3: 1 Result Comment: Afri can [place] GFR Calc Performed By: #### L 100.0100, L500.2500, L503.6620, L501.4020 ####[facility] [address] [place], [address] GAP 6 Normal 5-15 [facility] Comment on above: Order Comment: 'TROP ' Serial specimen #1, #2 or #3: 1 Performed By: #### L 100.0100, L500.2500, L503.6620, L501.4020 ####[facility] [address] [place], [address] GFR/1.73 sq M.predicted among non-blacks MDRD (S/P/Bld) [Vol rate/Area] 78 mL/min/{1.73_m2} Normal >60 [facility] Comment on above: Order Comment: 'TROP ' Serial specimen #1, #2 or #3: 1 Result Comment: Non- GFR Calc Performed By: #### L 100.0100, L500.2500, L503.6620, L501.4020 ####[facility] [address] [place], [address] Glucose [Mass/Vol] 220 mg/dL High 74-106 [facility] Comment on above: Order Comment: 'TROP ' Serial specimen #1, #2 or #3: 1 Result Comment: Gluc ose result greater than or equal to 200 mg/dLsuggests DIABETES MELLITUS per A.D.A. criteria. Performed By: #### L 100.0100, L500.2500, L503.6620, L501.4020 ####[facility] [address] [place], [address] Potassium [Moles/Vol] 4.0 mmol/L Normal 3.5-5.1 [facility] Comment on above: Order Comment: 'TROP ' Serial specimen #1, #2 or #3: 1 Performed By: #### L 100.0100, L500.2500, L503.6620, L501.4020 ####[facility] [address] [place], [address] Sodium [Moles/Vol] 136 mmol/L Normal 136-145 [facility] Comment on above: Order Comment: 'TROP ' Serial specimen #1, #2 or #3: 1 Performed By: #### L 100.0100, L500.2500, L503.6620, L501.4020 ####[facility] [address] [place], [address] Urea nitrogen [Mass/Vol] 24 mg/dL High 7-18 [facility] Comment on above: Order Comment: 'TROP ' Serial specimen #1, #2 or #3: 1 Performed By: #### L 100.0100, L500.2500, L503.6620, L501.4020 ####[facility] [address] [place], [address] CBC W/Diff, Automatedon 12-0 Absolute Lymph 1.30 X10 3/uL Normal 0.83-4.51 [facility] Comment on above: Performed By: #### L 100.0100, L500.2500, L503.6620, L501.4020 ####[facility] [address] [place], [address] Absolute Neut 6.6 X10 3/uL Normal 2.0-7.7 [facility] Comment on above: Performed By: #### L 100.0100, L500.2500, L503.6620, L501.4020 ####[facility] [address] [place], [address] Basophils/100 WBC (Bld) 0.6 % Normal 0-1 [facility] Comment on above: Performed By: #### L 100.0100, L500.2500, L503.6620, L501.4020 ####[facility] [address] [place], [address] Eosinophils/100 WBC (Bld) 2.4 % Normal 0-5 [facility] Comment on above: Performed By: #### L 100.0100, L500.2500, L503.6620, L501.4020 ####[facility] [address] [place], [address] Erythrocyte distribution width (RBC) [Ratio] 17.9 % High 11.6-14.6 [facility] Comment on above: Performed By: #### L 100.0100, L500.2500, L503.6620, L501.4020 ####[facility] [address] [place], [address] Hematocrit (Bld) [Volume fraction] 32.1 % Low 40-54 [facility] Comment on above: Performed By: #### L 100.0100, L500.2500, L503.6620, L501.4020 ####[facility] [address] [place], [address] Hemoglobin (Bld) [Mass/Vol] 9.3 g/dL Low 13.0-16.5 [facility] Comment on above: Performed By: #### L 100.0100, L500.2500, L503.6620, L501.4020 ####[facility] [address] [place], [address] IG% 0.400 Normal 0.0-0.9 [facility] Comment on above: Result Comment: IG% - Immature Granulocytes (promyelocytes, myelocytes andmetamyelocytes) > 1% indicates that a LEFT SHIFT is Present. Performed By: #### L 100.0100, L500.2500, L503.6620, L501.4020 ####[facility] [address] [place], [address] Lymphocytes/100 WBC (Bld) 14.4 % Low 19-41 [facility] Comment on above: Performed By: #### L 100.0100, L500.2500, L503.6620, L501.4020 ####[facility] [address] [place], [address] MCH (RBC) [Entitic mass] 22.2 pg Low 27.0-32.0 [facility] Comment on above: Performed By: #### L 100.0100, L500.2500, L503.6620, L501.4020 ####[facility] [address] [place], [address] MCHC (RBC) [Mass/Vol] 29.0 g/dL Low 32-36 [facility] Comment on above: Performed By: #### L 100.0100, L500.2500, L503.6620, L501.4020 ####[facility] [address] [place], [address] MCV (RBC) [Entitic vol] 76.6 fL Low 80-94 [facility] Comment on above: Performed By: #### L 100.0100, L500.2500, L503.6620, L501.4020 ####[facility] [facility] [address] [place], [address] Monocytes/100 WBC (Bld) 8.3 % Normal 0-10 [facility] Comment on above: Performed By: #### L 100.0100, L500.2500, L503.6620, L501.4020 ####[facility] [address] [place], [address] Neutrophils/100 WBC (Bld) 73.9 % High 47-70 [facility] Comment on above: Performed By: #### L 100.0100, L500.2500, L503.6620, L501.4020 ####[facility] [address] [place], [address] Nucleated RBC (Bld) [#/Vol] 0 10*3/uL Normal 0-5 [facility] Comment on above: Performed By: #### L 100.0100, L500.2500, L503.6620, L501.4020 ####[facility] [address] [place], [address] Platelet mean volume (Bld) [Entitic vol] 10.6 fL Normal 6.2-12.0 [facility] Comment on above: Performed By: #### L 100.0100, L500.2500, L503.6620, L501.4020 ####[facility] [address] [place], [address] Platelets (Bld) [#/Vol] 242 10*3/uL Normal 150-450 [facility] Comment on above: Performed By: #### L 100.0100, L500.2500, L503.6620, L501.4020 ####[facility] [address] [place], [address] RBC (Bld) [#/Vol] 4.19 10*6/uL Low 4.6-6.2 [facility] Comment on above: Performed By: #### L 100.0100, L500.2500, L503.6620, L501.4020 ####[facility] [address] [place], [address] RDW SD 49.2 fl High 35.1-43.9 [facility] Comment on above: Performed By: #### L 100.0100, L500.2500, L503.6620, L501.4020 ####[facility] [address] [place], [address] WBC (Bld) [#/Vol] 9.0 10*3/uL Normal 4.4-11.0 [facility] Comment on above: Performed By: #### L 100.0100, L500.2500, L503.6620, L501.4020 ####[facility] [address] [place], [address] Chest PA and Lateralon 03-02 Chest PA and Lateral Normal [facility] Echo Complete W/ Contraston 03-02-2024 Echo Complete W/ Contrast Normal [facility] Emergency Department Summary on 03-02-2024 Emergency Department Summary Normal [facility] H AND P Exam - Hospitaliston 03-02-2024 H&P Exam - Hospitalist Normal [facility] L501.4020on 03-02-2024 TROPONIN-I HS 35 pg/mL Normal 3.0-78.0 [facility] Comment on above: Order Comment: 'TROP ' Serial specimen #1, #2 or #3: 1 Result Comment: Plea se Note: New Test Units and Gender Specific Reference Ranges. For more information see Policy Stat Procedure [place] High Sensitivity Troponin (TNIH) and attachments. Performed By: #### L 100.0100, L500.2500, L503.6620, L501.4020 ####[facility] [address] [place], [address] M100.678on 03-02-2024 M100.678 Pending SARS-CoV-2 (COVID 19) Negative INFLUENZA A Negative INFLUENZA B Negative RSV PCR Negative Normal [facility] Comment on above: Performed By: #### M 100.678 ####[facility] [address] [place], [address] Basic Metabolic Profile (BMP )on 02-26-2024 BUN/CRE 20.5 RATIO High 10-20 [facility] Comment on above: Order Comment: 'TROP ' Serial specimen #1, #2 or #3: 1 Performed By: #### L 501.5200, L501.4020, L500.2500, L100.0100 ####[facility] [address] [place], [address] CA,Total 9.0 mg/dL Normal 8.5-10.1 [facility] Comment on above: Order Comment: 'TROP ' Serial specimen #1, #2 or #3: 1 Performed By: #### L 501.5200, L501.4020, L500.2500, L100.0100 ####[facility] [address] [place], [address] Chloride [Moles/Vol] 109 mmol/L High 98-107 [facility] Comment on above: Order Comment: 'TROP ' Serial specimen #1, #2 or #3: 1 Performed By: #### L 501.5200, L501.4020, L500.2500, L100.0100 ####[facility] [address] [place], [address] CO2 [Moles/Vol] 22.0 mmol/L Normal 21.0-32.0 [facility] Comment on above: Order Comment: 'TROP ' Serial specimen #1, #2 or #3: 1 Performed By: #### L 501.5200, L501.4020, L500.2500, L100.0100 ####[facility] [address] [place], [address] Creatinine [Mass/Vol] 1.32 mg/dL High 0.70-1.30 [facility] Comment on above: Order Comment: 'TROP ' Serial specimen #1, #2 or #3: 1 Result Comment: The validity of the calculated GFR GFRAA in patients over70 years has not been determined. Clinical correlation isessential. Performed By: #### L 501.5200, L501.4020, L500.2500, L100.0100 ####[facility] [address] [place], [address] ECRCL 83.89 ml/min Normal [facility] Comment on above: Order Comment: 'TROP ' Serial specimen #1, #2 or #3: 1 Performed By: #### L 501.5200, L501.4020, L500.2500, L100.0100 ####[facility] [address] [place], [address] EST GFR - AA 71 mL/min Normal >60 [facility] Comment on above: Order Comment: 'TROP ' Serial specimen #1, #2 or #3: 1 Result Comment: Afri can [place] GFR Calc Performed By: #### L 501.5200, L501.4020, L500.2500, L100.0100 ####[facility] [address] [place], [address] GAP 7 Normal 5-15 [facility] Comment on above: Order Comment: 'TROP ' Serial specimen #1, #2 or #3: 1 Performed By: #### L 501.5200, L501.4020, L500.2500, L100.0100 ####[facility] [address] [place], [address] GFR/1.73 sq M.predicted among non-blacks MDRD (S/P/Bld) [Vol rate/Area] 59 mL/min/{1.73_m2} Low >60 [facility] Comment on above: Order Comment: 'TROP ' Serial specimen #1, #2 or #3: 1 Result Comment: Non- GFR Calc Performed By: #### L 501.5200, L501.4020, L500.2500, L100.0100 ####[facility] [address] [place], [address] Glucose [Mass/Vol] 193 mg/dL High 74-106 [facility] Comment on above: Order Comment: 'TROP ' Serial specimen #1, #2 or #3: 1 Result Comment: Fast ing Glucose result greater than or equal to 126 mg/dLsuggests DIABETES MELLITUS per A.D.A. criteria. Performed By: #### L 501.5200, L501.4020, L500.2500, L100.0100 ####[facility] [address] [place], [address] Potassium [Moles/Vol] 4.0 mmol/L Normal 3.5-5.1 [facility] Comment on above: Order Comment: 'TROP ' Serial specimen #1, #2 or #3: 1 Performed By: #### L 501.5200, L501.4020, L500.2500, L100.0100 ####[facility] [address] [place], [address] Sodium [Moles/Vol] 138 mmol/L Normal 136-145 [facility] Comment on above: Order Comment: 'TROP ' Serial specimen #1, #2 or #3: 1 Performed By: #### L 501.5200, L501.4020, L500.2500, L100.0100 ####[facility] [address] [place], [address] Urea nitrogen [Mass/Vol] 27 mg/dL High 7-18 [facility] Comment on above: Order Comment: 'TROP ' Serial specimen #1, #2 or #3: 1 Performed By: #### L 501.5200, L501.4020, L500.2500, L100.0100 ####[facility] [address] [place], [address] CBC W/Diff, Automatedon - Absolute Lymph 1.36 X10 3/uL Normal 0.83-4.51 [facility] Comment on above: Performed By: #### L 501.5200, L501.4020, L500.2500, L100.0100 ####[facility] [address] [place], [address] Absolute Neut 6.7 X10 3/uL Normal 2.0-7.7 [facility] Comment on above: Performed By: #### L 501.5200, L501.4020, L500.2500, L100.0100 ####[facility] [address] [place], [address] Basophils/100 WBC (Bld) 0.9 % Normal 0-1 [facility] Comment on above: Performed By: #### L 501.5200, L501.4020, L500.2500, L100.0100 ####[facility] [address] [place], [address] Eosinophils/100 WBC (Bld) 2.1 % Normal 0-5 [facility] Comment on above: Performed By: #### L 501.5200, L501.4020, L500.2500, L100.0100 ####[facility] [address] [place], [address] Erythrocyte distribution width (RBC) [Ratio] 18.2 % High 11.6-14.6 [facility] Comment on above: Performed By: #### L 501.5200, L501.4020, L500.2500, L100.0100 ####[facility] [address] [place], [address] Hematocrit (Bld) [Volume fraction] 34.4 % Low 40-54 [facility] Comment on above: Performed By: #### L 501.5200, L501.4020, L500.2500, L100.0100 ####[facility] [address] [place], [address] Hemoglobin (Bld) [Mass/Vol] 10.2 g/dL Low 13.0-16.5 [facility] Comment on above: Performed By: #### L 501.5200, L501.4020, L500.2500, L100.0100 ####[facility] [address] [place], [address] IG% 0.400 Normal 0.0-0.9 [facility] Comment on above: Result Comment: IG% - Immature Granulocytes (promyelocytes, myelocytes andmetamyelocytes) > 1% indicates that a LEFT SHIFT is Present. Performed By: #### L 501.5200, L501.4020, L500.2500, L100.0100 ####[facility] [address] [place], [address] Lymphocytes/100 WBC (Bld) 14.5 % Low 19-41 [facility] Comment on above: Performed By: #### L 501.5200, L501.4020, L500.2500, L100.0100 ####[facility] [address] [place], [address] MCH (RBC) [Entitic mass] 22.7 pg Low 27.0-32.0 [facility] Comment on above: Performed By: #### L 501.5200, L501.4020, L500.2500, L100.0100 ####[facility] [address] [place], [address] MCHC (RBC) [Mass/Vol] 29.7 g/dL Low 32-36 [facility] Comment on above: Performed By: #### L 501.5200, L501.4020, L500.2500, L100.0100 ####[facility] [address] [place], [address] MCV (RBC) [Entitic vol] 76.6 fL Low 80-94 [facility] Comment on above: Performed By: #### L 501.5200, L501.4020, L500.2500, L100.0100 ####[facility] [address] [place], [address] Monocytes/100 WBC (Bld) 10.1 % High 0-10 [facility] Comment on above: Performed By: #### L 501.5200, L501.4020, L500.2500, L100.0100 ####[facility] [address] [place], [address] Neutrophils/100 WBC (Bld) 72.0 % High 47-70 [facility] Comment on above: Performed By: #### L 501.5200, L501.4020, L500.2500, L100.0100 ####[facility] [address] [place], [address] Nucleated RBC (Bld) [#/Vol] 0 10*3/uL Normal 0-5 [facility] Comment on above: Performed By: #### L 501.5200, L501.4020, L500.2500, L100.0100 ####[facility] [address] [place], [address] Platelet mean volume (Bld) [Entitic vol] 10.1 fL Normal 6.2-12.0 [facility] Comment on above: Performed By: #### L 501.5200, L501.4020, L500.2500, L100.0100 ####[facility] [address] [place], [address] Platelets (Bld) [#/Vol] 254 10*3/uL Normal 150-450 [facility] Comment on above: Performed By: #### L 501.5200, L501.4020, L500.2500, L100.0100 ####[facility] [address] [place], [address] RBC (Bld) [#/Vol] 4.49 10*6/uL Low 4.6-6.2 [facility] Comment on above: Performed By: #### L 501.5200, L501.4020, L500.2500, L100.0100 ####[facility] [address] [place], [address] RDW SD 49.1 fl High 35.1-43.9 [facility] Comment on above: Performed By: #### L 501.5200, L501.4020, L500.2500, L100.0100 ####[facility] [address] [place], [address] WBC (Bld) [#/Vol] 9.4 10*3/uL Normal 4.4-11.0 [facility] Comment on above: Performed By: #### L 501.5200, L501.4020, L500.2500, L100.0100 ####[facility] [address] [place], [address] Chest 1 View (Portable)on Chest 1 View (Portable) Normal [facility] D-Dimer Quantitative (DVT/PE )on 02-26-2024 D-DIMER QUANT 0.44 FEU/ug/m Normal 0.27-0.49 [facility] Comment on above: Result Comment: NORM AL D-Dimer level (<0.50) indicates no DVT or PE. Performed By: #### L 300.8000 ####[facility] [address] [place], [address] Emergency Department Summary on 02-26-2024 Emergency Department Summary Normal [facility] L501.4020on 02-26-2024 TROPONIN-I HS 443 pg/mL Invalid Interpretation Code 3.0-78.0 [facility] Comment on above: Order Comment: 'TROP ' Serial specimen #1, #2 or #3: 2 Result Comment: Crit ical Result(s) Called at: 13:36:54 02/26/2024 by: CINDI Estevez. Results read back by same. Please Note: New Test Units and Gender Specific Reference Ranges. For more information see Policy Stat Procedure [place] High Sensitivity Troponin (TNIH) and attachments. Performed By: #### L 501.4020 ####[facility] [address] [place], [place], [address] TROPONIN-I HS 358 pg/mL Invalid Interpretation Code 3.0-78.0 [facility] Comment on above: Order Comment: 'TROP ' Serial specimen #1, #2 or #3: 1 Result Comment: Crit ical Result(s) Called at: 11:46:25 02/26/2024 by: CINDI to Kayla Vazquez. Results read back by same. Please Note: New Test Units and Gender Specific Reference Ranges. For more information see Policy Stat Procedure [place] High Sensitivity Troponin (TNIH) and attachments. Performed By: #### L 501.5200, L501.4020, L500.2500, L100.0100 ####[facility] [address] [place], [address] Magnesiumon 02-26-2024 Magnesium [Mass/Vol] 2.3 mg/dL Normal 1.6-2.6 [facility] Comment on above: Order Comment: 'TROP ' Serial specimen #1, #2 or #3: 1 Performed By: #### L 501.5200, L501.4020, L500.2500, L100.0100 ####[facility] [address] [place], [address] Office Visit Reporton 2023 Office Visit Report Normal [facility] Neurology Visit Reporton Neurology Visit Report Normal [facility] 36on 02-12-2024 36 Notes and imaging reviewed [...] will determine when to resume Eliquis. Normal [facility] 36 This patient left a voicemail returning a call regarding his test results with Dr. Hutton Please advise :) Normal [facility] Gastroenterology Visit Repor ton 02-07-2024 Gastroenterology Visit Report Normal [facility] 36on 02-06-2024 36 Name of caller: Harpreet damon Contact phone number: [phone] Relationship to Patient: care team amanda Provider: Jose Antonio Practice: Endovascular Chief Complaint/Reason for Call: please send all lab work from September to fax [phone] [facility] Best time of day caller can be reached: any Patient advised that office/PCP has 24-48 business hours to return their call: No Normal [facility] CT HEAD NECK ANGIO W AND WO [...] carotid artery stenosis, Ischemic cerebrovascular accident Normal [facility] Thyroidon 02-06-2024 Thyroid Normal [facility] Progress Noteon 02-05-2024 Progress Note 02/05/24 Pt was seen today for CT Head/Neck w & wo contrast @ [facility] Pt had multiple attempts for IV placement from 2 different techs, with no success. Patient did inform us that he is a very hard stick and normally US is needed. Reached out to oncology for assistance but were extremely busy. Pt was advised to call central scheduling to reschedule at either [facility] or [facility] as they have US. He was initially scheduled at [facility]. The office was contacted on 02/05/24 to relay the information on the outcome of today's CT exam. Christine at the office was given this information. Normal [facility] Oncology Visit Reporton Oncology Visit Report Normal [facility] Basic Metabolic Profile (BMP )on 01-22-2024 BUN/CRE 25.4 RATIO High 10-20 [facility] Comment on above: Performed By: #### L 500.2500, L100.0100 ####[facility] [address] [place], [address] CA,Total 8.9 mg/dL Normal 8.5-10.1 [facility] Comment on above: Performed By: #### L 500.2500, L100.0100 ####[facility] [address] [place], [address] Chloride [Moles/Vol] 105 mmol/L Normal 98-107 [facility] Comment on above: Performed By: #### L 500.2500, L100.0100 ####[facility] [address] [place], [address] CO2 [Moles/Vol] 24.0 mmol/L Normal 21.0-32.0 [facility] Comment on above: Performed By: #### L 500.2500, L100.0100 ####[facility] [address] [place], [address] Creatinine [Mass/Vol] 1.22 mg/dL Normal 0.70-1.30 [facility] Comment on above: Result Comment: The validity of the calculated GFR GFRAA in patients over70 years has not been determined. Clinical correlation isessential. Performed By: #### L 500.2500, L100.0100 ####[facility] [address] [place], [address] ECRCL 91.97 ml/min Normal [facility] Comment on above: Performed By: #### L 500.2500, L100.0100 ####[facility] [address] [place], [address] EST GFR - AA 78 mL/min Normal >60 [facility] Comment on above: Result Comment: Afri can [place] GFR Calc Performed By: #### L 500.2500, L100.0100 ####[facility] [address] [place], [address] GAP 7 Normal 5-15 [facility] Comment on above: Performed By: #### L 500.2500, L100.0100 ####[facility] [address] [place], [address] GFR/1.73 sq M.predicted among non-blacks MDRD (S/P/Bld) [Vol rate/Area] 64 mL/min/{1.73_m2} Normal >60 [facility] Comment on above: Result Comment: Non- GFR Calc Performed By: #### L 500.2500, L100.0100 ####[facility] [address] [place], [address] Glucose [Mass/Vol] 196 mg/dL High 74-106 [facility] Comment on above: Result Comment: Fast ing Glucose result greater than or equal to 126 mg/dLsuggests DIABETES MELLITUS per A.D.A. criteria. Performed By: #### L 500.2500, L100.0100 ####[facility] [address] [place], [address] Potassium [Moles/Vol] 4.1 mmol/L Normal 3.5-5.1 [facility] Comment on above: Performed By: #### L 500.2500, L100.0100 ####[facility] [address] [place], [address] Sodium [Moles/Vol] 136 mmol/L Normal 136-145 [facility] Comment on above: Performed By: #### L 500.2500, L100.0100 ####[facility] [address] [place], [address] Urea nitrogen [Mass/Vol] 31 mg/dL High 7-18 [facility] Comment on above: Performed By: #### L 500.2500, L100.0100 ####[facility] [address] [place], [address] Bedside Glucoseon 01-21-2023 FINGERSTICK GLU 224 mg/dL High 74-106 [facility] Comment on above: Result Comment: ANI GEMENT OF PATIENT CARE PER NURSING PROTOCOL Performed By: #### L 501.080 ####[facility] [address] [place], [address] FINGERSTICK GLU 177 mg/dL High 74-106 [facility] Comment on above: Result Comment: ANI GEMENT OF PATIENT CARE PER NURSING PROTOCOL Performed By: #### L 501.080 ####[facility] [address] [place], [address] CBC W/Diff, Automatedon 10-2 Absolute Lymph 2.23 X10 3/uL Normal 0.83-4.51 [facility] Comment on above: Performed By: #### L 500.2500, L100.0100 ####[facility] [address], [address] Absolute Neut 6.5 X10 3/uL Normal 2.0-7.7 [facility] Comment on above: Performed By: #### L 500.2500, L100.0100 ####[facility] [address] [place], [address] Basophils/100 WBC (Bld) 0.6 % Normal 0-1 [facility] Comment on above: Performed By: #### L 500.2500, L100.0100 ####[facility] [address] [place], [address] Eosinophils/100 WBC (Bld) 3.8 % Normal 0-5 [facility] Comment on above: Performed By: #### L 500.2500, L100.0100 ####[facility] [address] [place], [address] Erythrocyte distribution width (RBC) [Ratio] 17.5 % High 11.6-14.6 [facility] Comment on above: Performed By: #### L 500.2500, L100.0100 ####[facility] [address] [place], [address] Hematocrit (Bld) [Volume fraction] 30.9 % Low 40-54 [facility] Comment on above: Performed By: #### L 500.2500, L100.0100 ####[facility] [address] [place], [address] Hemoglobin (Bld) [Mass/Vol] 9.3 g/dL Low 13.0-16.5 [facility] Comment on above: Performed By: #### L 500.2500, L100.0100 ####[facility] [address] [place], [address] IG% 0.500 Normal 0.0-0.9 [facility] Comment on above: Result Comment: IG% - Immature Granulocytes (promyelocytes, myelocytes andmetamyelocytes) > 1% indicates that a LEFT SHIFT is Present. Performed By: #### L 500.2500, L100.0100 ####[facility] [address] [place], [address] Lymphocytes/100 WBC (Bld) 21.7 % Normal 19-41 [facility] Comment on above: Performed By: #### L 500.2500, L100.0100 ####[facility] [address] [place], [address] MCH (RBC) [Entitic mass] 23.4 pg Low 27.0-32.0 [facility] Comment on above: Performed By: #### L 500.2500, L100.0100 ####[facility] [address] [place], [address] MCHC (RBC) [Mass/Vol] 30.1 g/dL Low 32-36 [facility] Comment on above: Performed By: #### L 500.2500, L100.0100 ####[facility] [address] [place], [address] MCV (RBC) [Entitic vol] 77.6 fL Low 80-94 [facility] Comment on above: Performed By: #### L 500.2500, L100.0100 ####[facility] [address] [place], [address] Monocytes/100 WBC (Bld) 10.7 % High 0-10 [facility] Comment on above: Performed By: #### L 500.2500, L100.0100 ####[facility] [address] [place], [address] Neutrophils/100 WBC (Bld) 62.7 % Normal 47-70 [facility] Comment on above: Performed By: #### L 500.2500, L100.0100 ####[facility] [address] [place], [address] Nucleated RBC (Bld) [#/Vol] 0 10*3/uL Normal 0-5 [facility] Comment on above: Performed By: #### L 500.2500, L100.0100 ####[facility] [address] [place], [address] Platelet mean volume (Bld) [Entitic vol] 9.8 fL Normal 6.2-12.0 [facility] Comment on above: Performed By: #### L 500.2500, L100.0100 ####[facility] [address] [place], [address] Platelets (Bld) [#/Vol] 273 10*3/uL Normal 150-450 [facility] Comment on above: Performed By: #### L 500.2500, L100.0100 ####[facility] [address] [place], [address] RBC (Bld) [#/Vol] 3.98 10*6/uL Low 4.6-6.2 [facility] [facility] Comment on above: Performed By: #### L 500.2500, L100.0100 ####[facility] [address] [place], [address] RDW SD 49.5 fl High 35.1-43.9 [facility] Comment on above: Performed By: #### L 500.2500, L100.0100 ####[facility] [address] [place], [address] WBC (Bld) [#/Vol] 10.3 10*3/uL Normal 4.4-11.0 [facility] Comment on above: Performed By: #### L 500.2500, L100.0100 ####[facility] [address] [place], [address] 36on 01-21-2024 36 Patient called to in form me he is in the hospital and will not be able to make his radiology appointment tomorrow. I told patient I will call and cancel for him and gave him the number to call and reschedule when he is ready. Normal [facility] Bedside Glucoseon 01-21-2024 FINGERSTICK GLU 136 mg/dL High 74-106 [facility] Comment on above: Result Comment: ANI GEMENT OF PATIENT CARE PER NURSING PROTOCOL Performed By: #### L 501.080 ####[facility] [address] [facility] [address] FINGERSTICK GLU 151 mg/dL High 74-106 [facility] Comment on above: Result Comment: ANI GEMENT OF PATIENT CARE PER NURSING PROTOCOL Performed By: #### L 501.080 ####[facility] [address] [facility] [address] FINGERSTICK GLU 152 mg/dL High 74-106 [facility] Comment on above: Result Comment: ANI GEMENT OF PATIENT CARE PER NURSING PROTOCOL Performed By: #### L 501.080 ####[facility] [address] [facility] [address] FINGERSTICK GLU 126 mg/dL High 74-106 [facility] Comment on above: Result Comment: ANI GEMENT OF PATIENT CARE PER NURSING PROTOCOL Performed By: #### L 501.080 ####[facility] [address] [facility] [address] CTA Chest W/WO Contraston CTA Chest W/WO Contrast Normal [facility] D-Dimer Quantitative (DVT/PE )on 01-21-2024 D-DIMER QUANT 2.48 FEU/ug/m Invalid Interpretation Code 0.27-0.49 [facility] Comment on above: Result Comment: D-Di tania ELEVATED (>0.49): Additional studies and clinicalassessments are indicated to conclude diagnosis of:Deep Vein Thrombosis (DVT) or Pulmonary Embolism (PE)CRITICAL VALUE CALLED TO PIHSUD28/22/24 0323 Hipolito Mitchell.RESULTS READ BACK BY SAME. Performed By: #### L 300.8000 ####[facility] [address] [place], [address] Emergency Department Summary on 01-21-2024 Emergency Department Summary Normal [facility] Ferritinon 01-21-2024 Ferritin [Mass/Vol] 53 ng/mL Normal 26-388 [facility] Comment on above: Performed By: #### L 503.6030, L503.6433 ####[facility] [address] [place], [address] H AND P Exam - Hospitaliston 01-21-2024 H&P Exam - Hospitalist Normal [facility] Hemoglobin A1con 01-21-2024 HbA1c (Bld) [Mass fraction] 8.0 % High 3.8-5.6 [facility] Comment on above: Result Comment: Norm al < 5.7 % Prediabetic 5.7 - 6.4 % Diabetic >or= 6.5 % Please note range changes. Performed By: #### L 5019992 ####[facility] [address] [place], [address] Iron+Iron Binding Capacityon 01-21-2024 Iron [Mass/Vol] 12 ug/dL Low 65-175 [facility] Comment on above: Performed By: #### L 503.6036, L503.7650 ####[facility] [address] [place], [address] IRON SATURATION 3.5 Low 15.0-55.0 [facility] Comment on above: Performed By: #### L 503.6038, L503.1750 ####[facility] [address] [place], [address] TIBC 347 ug/dL Normal 250-450 [facility] Comment on above: Performed By: #### L 503.6025, L503.3850 ####[facility] [address] [place], [address] Lactic Acidon 10-22-2024 Lactate [Moles/Vol] 1.6 mmol/L Normal 0.4-1.9 [facility] Comment on above: Order Comment: Y Performed By: #### L 503.6005 ####[facility] [address] [place], [address] Legionella Antigen Urineon 1 LEGU Normal [facility] Comment on above: Performed By: #### M 300.4600, M300.4500 ####[facility] [address] [place], [address] RESPIRATORY PANEL MOLECULARo n 01-21-2024 RP PANEL Normal [facility] Comment on above: Performed By: #### M 100.638 ####[facility] [address] [place], [address] Strep pneumoniae Antig(UR,CS F)on 01-21-2024 STPAG Normal [facility] Comment on above: Performed By: #### M 300.4600, M300.4500 ####[facility] [address] [place], [address] Venous Duplex US - Adam Extre mon 01-21-2024 Venous Duplex US - Adam Extrem Normal [facility] 12 Lead EKGon 01-20-2024 12 Lead EKG Normal [facility] BNP,B-Type NATRIURETIC PEPTI Sindy 01-20-2024 Natriuretic peptide B (Bld) [Mass/Vol] 130.8 pg/mL High 0-100 [facility] Comment on above: Performed By: #### L 501.5200, L503.6620 ####[facility] [address] [place], [address] Basic Metabolic Profile (BMP )on 01-20-2024 BUN/CRE 23.4 RATIO High 10-20 [facility] Comment on above: Order Comment: 'TROP ' Serial specimen #1, #2 or #3: 1 Performed By: #### L 501.4020, L500.2500, L100.0100 ####[facility] [address] [place], [address] CA,Total 9.0 mg/dL Normal 8.5-10.1 [facility] Comment on above: Order Comment: 'TROP ' Serial specimen #1, #2 or #3: 1 Performed By: #### L 501.4020, L500.2500, L100.0100 ####[facility] [address] [place], [address] Chloride [Moles/Vol] 107 mmol/L Normal 98-107 [facility] Comment on above: Order Comment: 'TROP ' Serial specimen #1, #2 or #3: 1 Performed By: #### L 501.4020, L500.2500, L100.0100 ####[facility] [address] [place], [address] CO2 [Moles/Vol] 22.0 mmol/L Normal 21.0-32.0 [facility] Comment on above: Order Comment: 'TROP ' Serial specimen #1, #2 or #3: 1 Performed By: #### L 501.4020, L500.2500, L100.0100 ####[facility] [address] [place], [address] Creatinine [Mass/Vol] 1.24 mg/dL Normal 0.70-1.30 [facility] Comment on above: Order Comment: 'TROP ' Serial specimen #1, #2 or #3: 1 Result Comment: The validity of the calculated GFR GFRAA in patients over70 years has not been determined. Clinical correlation isessential. Performed By: #### L 501.4020, L500.2500, L100.0100 ####[facility] [address] [place], [address] ECRCL 90.85 ml/min Normal [facility] Comment on above: Order Comment: 'TROP ' Serial specimen #1, #2 or #3: 1 Performed By: #### L 501.4020, L500.2500, L100.0100 ####[facility] [address] [place], [address] EST GFR - AA 76 mL/min Normal >60 [facility] Comment on above: Order Comment: 'TROP ' Serial specimen #1, #2 or #3: 1 Result Comment: Afri can [place] GFR Calc Performed By: #### L 501.4020, L500.2500, L100.0100 ####[facility] [address] [place], [address] GAP 6 Normal 5-15 [facility] Comment on above: Order Comment: 'TROP ' Serial specimen #1, #2 or #3: 1 Performed By: #### L 501.4020, L500.2500, L100.0100 ####[facility] [address] [place], [address] GFR/1.73 sq M.predicted among non-blacks MDRD (S/P/Bld) [Vol rate/Area] 63 mL/min/{1.73_m2} Normal >60 [facility] Comment on above: Order Comment: 'TROP ' Serial specimen #1, #2 or #3: 1 Result Comment: Non- GFR Calc Performed By: #### L 501.4020, L500.2500, L100.0100 ####[facility] [address] [place], [address] Glucose [Mass/Vol] 196 mg/dL High 74-106 [facility] Comment on above: Order Comment: 'TROP ' Serial specimen #1, #2 or #3: 1 Result Comment: Fast ing Glucose result greater than or equal to 126 mg/dLsuggests DIABETES MELLITUS per A.D.A. criteria. Performed By: #### L 501.4020, L500.2500, L100.0100 ####[facility] [address] [place], [address] Potassium [Moles/Vol] 4.3 mmol/L Normal 3.5-5.1 [facility] Comment on above: Order Comment: 'TROP ' Serial specimen #1, #2 or #3: 1 Result Comment: Mode rate Hemolysis, Result may be falsely increased. Performed By: #### L 501.4020, L500.2500, L100.0100 ####[facility] [address] [place], [address] Sodium [Moles/Vol] 135 mmol/L Low 136-145 [facility] Comment on above: Order Comment: 'TROP ' Serial specimen #1, #2 or #3: 1 Performed By: #### L 501.4020, L500.2500, L100.0100 ####[facility] [address] [place], [address] Urea nitrogen [Mass/Vol] 29 mg/dL High 7-18 [facility] Comment on above: Order Comment: 'TROP ' Serial specimen #1, #2 or #3: 1 Performed By: #### L 501.4020, L500.2500, L100.0100 ####[facility] [address] [place], [address] CBC W/Diff, Automatedon 10-2 -2023 Absolute Lymph 1.71 X10 3/uL Normal 0.83-4.51 [facility] Comment on above: Performed By: #### L 501.4020, L500.2500, L100.0100 ####[facility] [address] [place], [address] Absolute Neut 7.0 X10 3/uL Normal 2.0-7.7 [facility] Comment on above: Performed By: #### L 501.4020, L500.2500, L100.0100 ####[facility] [address] [place], [address] Basophils/100 WBC (Bld) 0.7 % Normal 0-1 [facility] Comment on above: Performed By: #### L 501.4020, L500.2500, L100.0100 ####[facility] [address] [place], [address] Eosinophils/100 WBC (Bld) 2.9 % Normal 0-5 [facility] Comment on above: Performed By: #### L 501.4020, L500.2500, L100.0100 ####[facility] [address] [place], [address] Erythrocyte distribution width (RBC) [Ratio] 17.1 % High 11.6-14.6 [facility] Comment on above: Performed By: #### L 501.4020, L500.2500, L100.0100 ####[facility] [address] [place], [address] Hematocrit (Bld) [Volume fraction] 31.1 % Low 40-54 [facility] Comment on above: Performed By: #### L 501.4020, L500.2500, L100.0100 ####[facility] [address] [place], [address] Hemoglobin (Bld) [Mass/Vol] 9.5 g/dL Low 13.0-16.5 [facility] Comment on above: Performed By: #### L 501.4020, L500.2500, L100.0100 ####[facility] [address] [place], [address] IG% 0.500 Normal 0.0-0.9 [facility] Comment on above: Result Comment: IG% - Immature Granulocytes (promyelocytes, myelocytes andmetamyelocytes) > 1% indicates that a LEFT SHIFT is Present. Performed By: #### L 501.4020, L500.2500, L100.0100 ####[facility] [address] [place], [address] Lymphocytes/100 WBC (Bld) 16.8 % Low 19-41 [facility] Comment on above: Performed By: #### L 501.4020, L500.2500, L100.0100 ####[facility] [address] [place], [address] MCH (RBC) [Entitic mass] 23.4 pg Low 27.0-32.0 [facility] Comment on above: Performed By: #### L 501.4020, L500.2500, L100.0100 ####[facility] [address] [place], [address] MCHC (RBC) [Mass/Vol] 30.5 g/dL Low 32-36 [facility] Comment on above: Performed By: #### L 501.4020, L500.2500, L100.0100 ####[facility] [address] [place], [address] MCV (RBC) [Entitic vol] 76.6 fL Low 80-94 [facility] Comment on above: Performed By: #### L 501.4020, L500.2500, L100.0100 ####[facility] [address] [place], [address] Monocytes/100 WBC (Bld) 10.6 % High 0-10 [facility] Comment on above: Performed By: #### L 501.4020, L500.2500, L100.0100 ####[facility] [address] [place], [address] Neutrophils/100 WBC (Bld) 68.5 % Normal 47-70 [facility] Comment on above: Performed By: #### L 501.4020, L500.2500, L100.0100 ####[facility] [address] [place], [address] Nucleated RBC (Bld) [#/Vol] 0 10*3/uL Normal 0-5 [facility] Comment on above: Performed By: #### L 501.4020, L500.2500, L100.0100 ####[facility] [address] [place], [address] Platelet mean volume (Bld) [Entitic vol] 9.5 fL Normal 6.2-12.0 [facility] Comment on above: Performed By: #### L 501.4020, L500.2500, L100.0100 ####[facility] [address] [place], [address] Platelets (Bld) [#/Vol] 267 10*3/uL Normal 150-450 [facility] Comment on above: Performed By: #### L 501.4020, L500.2500, L100.0100 ####[facility] [address] [place], [address] RBC (Bld) [#/Vol] 4.06 10*6/uL Low 4.6-6.2 [facility] Comment on above: Performed By: #### L 501.4020, L500.2500, L100.0100 ####[facility] [address] [place], [address] RDW SD 47.4 fl High 35.1-43.9 [facility] Comment on above: Performed By: #### L 501.4020, L500.2500, L100.0100 ####[facility] [address] [place], [address] WBC (Bld) [#/Vol] 10.2 10*3/uL Normal 4.4-11.0 [facility] Comment on above: Performed By: #### L 501.4020, L500.2500, L100.0100 ####[facility] [address] [place], [address] Chest PA and Lateralon 01-19 Chest PA and Lateral Normal [facility] L501.4020on 01-20-2024 TROPONIN-I HS 24 pg/mL Normal 3.0-78.0 [facility] Comment on above: Order Comment: 'TROP ' Serial specimen #1, #2 or #3: 1 Result Comment: Kodi monterroso Note: New Test Units and Gender Specific Reference Ranges. For more information see Policy Stat Procedure [place] High Sensitivity Troponin (TNIH) and attachments. Performed By: #### L 501.4020, L500.2500, L100.0100 ####[facility] [address] [place], [address] M100.678on 01-20-2024 M100.678 Pending SARS-CoV-2 (COVID 19) Negative INFLUENZA A Negative INFLUENZA B Negative RSV PCR Negative Normal [facility] Comment on above: Performed By: #### M 100.678 ####[facility] [address] [place], [address] Magnesiumon 01-20-2024 Magnesium [Mass/Vol] 1.7 mg/dL Normal 1.6-2.6 [facility] Comment on above: Result Comment: Mode rate Hemolysis, Result may be falsely increased. Performed By: #### L 501.5200, L503.6620 ####[facility] [address] [place], [address] Office Visit Reporton 2023 Office Visit Report Normal [facility] 36on 01-15-2024 36 Called patient to in form him of his appointment for CTA ordered by Dr. Culp. Patient verbalized understanding appointment schduled for 01/22/2024 at 1045 [facility] [facility]. Patient instructed to stop eating 4 hours prior to testing and to drink 16oz water 1 hour prior. Patient questioned if we received imaging from [facility]. Will follow up to confirm they are uploaded to PACS. Normal [facility] 36on 01-10-2024 36 [id number] submitted through [employer] phone call Normal [facility] CBC W/Diff, Automatedon 12-30 Absolute Lymph 1.87 X10 3/uL Normal 0.83-4.51 [facility] Comment on above: Order Comment: Order Date: 01/10/24Order Info: 018- - CBCDOrder Info: 4679-7 - RETIC Performed By: #### L 503.6150, L100.9950, L503.0105, L503.6075, L100.0100, L506.0250, L503.6550 ####[facility] [address] [place], [address] Absolute Neut 5.7 X10 3/uL Normal 2.0-7.7 [facility] Comment on above: Order Comment: Order Date: 01/10/24Order Info: 018- - CBCDOrder Info: 4679-7 - RETIC Performed By: #### L 503.6150, L100.9950, L503.0105, L503.6075, L100.0100, L506.0250, L503.6550 ####[facility] [address] [place], [address] Basophils/100 WBC (Bld) 0.8 % Normal 0-1 [facility] Comment on above: Order Comment: Order Date: 01/10/24Order Info: 0184- - CBCDOrder Info: 4679-7 - RETIC Performed By: #### L 503.6150, L100.9950, L503.0105, L503.6075, L100.0100, L506.0250, L503.6550 ####[facility] [address] [place], [address] Eosinophils/100 WBC (Bld) 2.6 % Normal 0-5 [facility] Comment on above: Order Comment: Order Date: 01/10/24Order Info: 0184- - CBCDOrder Info: 4679-7 - RETIC Performed By: #### L 503.6150, L100.9950, L503.0105, L503.6075, L100.0100, L506.0250, L503.6550 ####[facility] [address] [place], [address] Erythrocyte distribution width (RBC) [Ratio] 17.3 % High 11.6-14.6 [facility] Comment on above: Order Comment: Order Date: 01/10/24Order Info: 018- - CBCDOrder Info: 4679-7 - RETIC Performed By: #### L 503.6150, L100.9950, L503.0105, L503.6075, L100.0100, L506.0250, L503.6550 ####[facility] [address] [place], [address] Hematocrit (Bld) [Volume fraction] 37.0 % Low 40-54 [facility] Comment on above: Order Comment: Order Date: 01/10/24Order Info: 183-04 - CBCDOrder Info: 4679-7 - RETIC Performed By: #### L 503.6150, L100.9950, L503.0105, L503.6075, L100.0100, L506.0250, L503.6550 ####[facility] [address] [place], [address] Hemoglobin (Bld) [Mass/Vol] 10.7 g/dL Low 13.0-16.5 [facility] Comment on above: Order Comment: Order Date: 01/10/24Order Info: 01806-30 - CBCDOrder Info: 4679-7 - RETIC Performed By: #### L 503.6150, L100.9950, L503.0105, L503.6075, L100.0100, L506.0250, L503.6550 ####[facility] [address] [place], [address] IG% 0.300 Normal 0.0-0.9 [facility] Comment on above: Order Comment: Order Date: 01/10/24Order Info: 018- - CBCDOrder Info: 4679-7 - RETIC Result Comment: IG% - Immature Granulocytes (promyelocytes, myelocytes andmetamyelocytes) > 1% indicates that a LEFT SHIFT is Present. Performed By: #### L 503.6150, L100.9950, L503.0105, L503.6075, L100.0100, L506.0250, L503.6550 ####[facility] [address] [place], [address] Lymphocytes/100 WBC (Bld) 21.4 % Normal 19-41 [facility] Comment on above: Order Comment: Order Date: 01/10/24Order Info: 018- - CBCDOrder Info: 4679-7 - RETIC Performed By: #### L 503.6150, L100.9950, L503.0105, L503.6075, L100.0100, L506.0250, L503.6550 ####[facility] [address] [place], [address] MCH (RBC) [Entitic mass] 22.8 pg Low 27.0-32.0 [facility] Comment on above: Order Comment: Order Date: 01/10/24Order Info: 018- - CBCDOrder Info: 4679-7 - RETIC Performed By: #### L 503.6150, L100.9950, L503.0105, L503.6075, L100.0100, L506.0250, L503.6550 ####[facility] [address] [place], [address] MCHC (RBC) [Mass/Vol] 28.9 g/dL Low 32-36 [facility] Comment on above: Order Comment: Order Date: 01/10/24Order Info: 01806-30 - CBCDOrder Info: 4679-7 - RETIC Performed By: #### L 503.6150, L100.9950, L503.0105, L503.6075, L100.0100, L506.0250, L503.6550 ####[facility] [address] [place], [address] MCV (RBC) [Entitic vol] 78.7 fL Low 80-94 [facility] Comment on above: Order Comment: Order Date: 01/10/24Order Info: 018- - CBCDOrder Info: 4679-7 - RETIC Performed By: #### L 503.6150, L100.9950, L503.0105, L503.6075, L100.0100, L506.0250, L503.6550 ####[facility] [address] [place], [address] Monocytes/100 WBC (Bld) 9.9 % Normal 0-10 [facility] Comment on above: Order Comment: Order Date: 01/10/24Order Info: 01806-30 - CBCDOrder Info: 4679-7 - RETIC Performed By: #### L 503.6150, L100.9950, L503.0105, L503.6075, L100.0100, L506.0250, L503.6550 ####[facility] [address] [place], [address] Neutrophils/100 WBC (Bld) 65.0 % Normal 47-70 [facility] Comment on above: Order Comment: Order Date: 01/10/24Order Info: 01806-30 - CBCDOrder Info: 4679-7 - RETIC Performed By: #### L 503.6150, L100.9950, L503.0105, L503.6075, L100.0100, L506.0250, L503.6550 ####[facility] [address] [place], [address] Nucleated RBC (Bld) [#/Vol] 0 10*3/uL Normal 0-5 [facility] Comment on above: Order Comment: Order Date: 01/10/24Order Info: 01806-30 - CBCDOrder Info: 4679-7 - RETIC Performed By: #### L 503.6150, L100.9950, L503.0105, L503.6075, L100.0100, L506.0250, L503.6550 ####[facility] [address] [place], [address] Platelet mean volume (Bld) [Entitic vol] 10.2 fL Normal 6.2-12.0 [facility] Comment on above: Order Comment: Order Date: 01/10/24Order Info: 0184-1 - CBCDOrder Info: 4679-7 - RETIC Performed By: #### L 503.6150, L100.9950, L503.0105, L503.6075, L100.0100, L506.0250, L503.6550 ####[facility] [address] [place], [address] Platelets (Bld) [#/Vol] 306 10*3/uL Normal 150-450 [facility] Comment on above: Order Comment: Order Date: 01/10/24Order Info: 0184-1 - CBCDOrder Info: 4679-7 - RETIC Performed By: #### L 503.6150, L100.9950, L503.0105, L503.6075, L100.0100, L506.0250, L503.6550 ####[facility] [address] [place], [address] RBC (Bld) [#/Vol] 4.70 10*6/uL Normal 4.6-6.2 [facility] Comment on above: Order Comment: Order Date: 01/10/24Order Info: 0184-1 - CBCDOrder Info: 4679-7 - RETIC Performed By: #### L 503.6150, L100.9950, L503.0105, L503.6075, L100.0100, L506.0250, L503.6550 ####[facility] [address] [place], [address] RDW SD 49.7 fl High 35.1-43.9 [facility] Comment on above: Order Comment: Order Date: 01/10/24Order Info: 0184- - CBCDOrder Info: 4679-7 - RETIC Performed By: #### L 503.6150, L100.9950, L503.0105, L503.6075, L100.0100, L506.0250, L503.6550 ####[facility] [address] [place], [address] WBC (Bld) [#/Vol] 8.7 10*3/uL Normal 4.4-11.0 [facility] Comment on above: Order Comment: Order Date: 01/10/24Order Info: 01806-30 - CBCDOrder Info: 4679-7 - RETIC Performed By: #### L 503.6150, L100.9950, L503.0105, L503.6075, L100.0100, L506.0250, L503.6550 ####[facility] [address] [place], [address] Ferritinon 01-10-2024 Ferritin [Mass/Vol] 28 ng/mL Normal 26-388 [facility] Comment on above: Order Comment: Order Date: 01/10/24Order Info: 2499- - TIBCOrder Info: [id number] - FEOrder Info: 2275-4 - FEROrder Info: 228-8 - FOLSN Performed By: #### L 503.6150, L100.9950, L503.0105, L503.6075, L100.0100, L506.0250, L503.6550 ####[facility] [address] [place], [address] Folates, (Folic Acid)on 12-30 FOLATES 5.30 ng/mL Normal 3.1-55.4 [facility] Comment on above: Order Comment: Order Date: 01/10/24Order Info: [id number] - TIBCOrder Info: [id number] - FEOrder Info: 4 - FEROrder Info: [id number] - FOLSN Performed By: #### L 503.6150, L100.9950, L503.0105, L503.6075, L100.0100, L506.0250, L503.6550 ####[facility] [address] [place], [address] Ironon 01-10-2024 Iron [Mass/Vol] 31 ug/dL Low 65-175 [facility] Comment on above: Order Comment: Order Date: 01/10/24Order Info: [id number] - TIBCOrder Info: [id number] - FEOrder Info: [id number] - FEROrder Info: 2283-10 - FOLSN Performed By: #### L 503.6150, L100.9950, L503.0105, L503.6075, L100.0100, L506.0250, L503.6550 ####[facility] [address] [place], [address] Iron Binding Capacity,Totalo n 01-10-2024 TIBC 445 ug/dL Normal 250-450 [facility] Comment on above: Order Comment: Order Date: 01/10/24Order Info: 7 - TIBCOrder Info: [id number] - FEOrder Info: [id number] - FEROrder Info: [id number] - FOLSN Performed By: #### L 503.6150, L100.9950, L503.0105, L503.6075, L100.0100, L506.0250, L503.6550 ####[facility] [address] [place], [address] Retic Panelon 01-10-2024 IM RET FRACTION 26.40 High 3.00-15.90 [facility] Comment on above: Order Comment: Order Date: 01/10/24Order Info: [id number] - CBCDOrder Info: [id number] - RETIC Performed By: #### L 503.6150, L100.9950, L503.0105, L503.6075, L100.0100, L506.0250, L503.6550 ####[facility] [address] [place], [place], [address] RET-HE 22.0 pg Low 30-35 [facility] Comment on above: Order Comment: Order Date: 01/10/24Order Info: [id number] - CBCDOrder Info: [id number] - RETIC Performed By: #### L 503.6150, L100.9950, L503.0105, L503.6075, L100.0100, L506.0250, L503.6550 ####[facility] [address] [place], [place], [address] Retic Count 2.36 High 0.5-1.5 [facility] Comment on above: Order Comment: Order Date: 01/10/24Order Info: [id number] - CBCDOrder Info: [id number] - RETIC Performed By: #### L 503.6150, L100.9950, L503.0105, L503.6075, L100.0100, L506.0250, L503.6550 ####[facility] [address] [place], [place], [address] Vitamin B12on 01-10-2024 Cobalamin (Vitamin B12) [Mass/Vol] 510 pg/mL Normal 211-911 [facility] Comment on above: Order Comment: Order Date: 01/10/24Order Info: [id number] - B12 Performed By: #### L 503.6150, L100.9950, L503.0105, L503.6075, L100.0100, L506.0250, L503.6550 ####[facility] [address] [place], [place], [address] Office Visiton 01-06-2024 Follow-up visit [id number] Krunal Leos 1965 M Date Provider Department Center 01/06/2024 OZIEL ROBLEDO [facility] NRO None No family history on file Level of Service:49162 LA OFFICE/OUTPATIENT ESTABLISHED MOD MDM 30 MIN Reason for Visit and Comments: New Patient [542] - New stroke 10/02, multiple mini strokes since. No current deficits per patient. Normal [facility] Progress Noteon 01-06-2024 Progress Note History of Present Illness: 58 yo man here for fu stroke and bilateral ICA stenosis. He originally presented 09/2023 for left hemiparesis and was transferred to [facility] from [facility]. He was found to [...] episode of left hemiparesis. He went to [facility] and was found to have increased stroke burden of the right hemisphere. Vascular surgery was consulted and no surgical procedure was recommended. He had a 3rd event of left hemiparesis the following week and a CT was done at [place] [facility]. At that time clopidogrel was added (in addition to ASA and Eliquis). The patient returned to normal and was discharged from the ED to home. 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 He is a nonsmoker. He does [...] 2023., Disp: 30 tablet, Rfl: 0 HYDROcodone-acetaminophen ([place]) 5-325 MG tablet, Take 1 tablet by [...] , Rfl: ergocalciferol (Vitamin D2) 1.25 MG (62909 UT) capsule, Take 1 capsule by mouth [...] Negative. Respirato (more content not included)... Normal [facility] [employer] [facility] Stress Reporton 01-01-2024 Stress Report Normal [facility] Pulmonary Visit Reporton Pulmonary Visit Report Normal [facility] Office Visit Reporton 2023 Office Visit Report [facility]B-Type NATRIURETIC PEPTI Sindy 12-12-2023 Natriuretic peptide B (Bld) [Mass/Vol] 92.2 pg/mL Normal 0-100 [facility] Comment on above: Performed By: #### L 500.4050, L501.5200, L100.0100, L503.6620, L506.0400, L501.9520 ####[facility] [address] [place], [address] CBC W/Diff, Automatedon 11-30 2-2023 Absolute Lymph 1.70 X10 3/uL Normal 0.83-4.51 [facility] Comment on above: Performed By: #### L 500.4050, L501.5200, L100.0100, L503.6620, L506.0400, L501.9520 ####[facility] [address] [place], [address] Absolute Neut 5.8 X10 3/uL Normal 2.0-7.7 [facility] Comment on above: Performed By: #### L 500.4050, L501.5200, L100.0100, L503.6620, L506.0400, L501.9520 ####[facility] [address] [place], [address] Basophils/100 WBC (Bld) 0.8 % Normal 0-1 [facility] Comment on above: Performed By: #### L 500.4050, L501.5200, L100.0100, L503.6620, L506.0400, L501.9520 ####[facility] [address] [place], [address] Eosinophils/100 WBC (Bld) 2.8 % Normal 0-5 [facility] Comment on above: Performed By: #### L 500.4050, L501.5200, L100.0100, L503.6620, L506.0400, L501.9520 ####[facility] [address] [place], [address] Erythrocyte distribution width (RBC) [Ratio] 18.5 % High 11.6-14.6 [facility] Comment on above: Performed By: #### L 500.4050, L501.5200, L100.0100, L503.6620, L506.0400, L501.9520 ####[facility] [address] [place], [address] Hematocrit (Bld) [Volume fraction] 33.3 % Low 40-54 [facility] Comment on above: Performed By: #### L 500.4050, L501.5200, L100.0100, L503.6620, L506.0400, L501.9520 ####[facility] [address] [place], [address] Hemoglobin (Bld) [Mass/Vol] 10.0 g/dL Low 13.0-16.5 [facility] Comment on above: Performed By: #### L 500.4050, L501.5200, L100.0100, L503.6620, L506.0400, L501.9520 ####[facility] [address] [place], [address] IG% 0.500 Normal 0.0-0.9 [facility] Comment on above: Result Comment: IG% - Immature Granulocytes (promyelocytes, myelocytes andmetamyelocytes) > 1% indicates that a LEFT SHIFT is Present. Performed By: #### L 500.4050, L501.5200, L100.0100, L503.6620, L506.0400, L501.9520 ####[facility] [address] [place], [address] Lymphocytes/100 WBC (Bld) 19.6 % Normal 19-41 [facility] Comment on above: Performed By: #### L 500.4050, L501.5200, L100.0100, L503.6620, L506.0400, L501.9520 ####[facility] [address] [place], [address] MCH (RBC) [Entitic mass] 23.9 pg Low 27.0-32.0 [facility] Comment on above: Performed By: #### L 500.4050, L501.5200, L100.0100, L503.6620, L506.0400, L501.9520 ####[facility] [address] [place], [address] MCHC (RBC) [Mass/Vol] 30.0 g/dL Low 32-36 [facility] Comment on above: Performed By: #### L 500.4050, L501.5200, L100.0100, L503.6620, L506.0400, L501.9520 ####[facility] [address] [place], [address] MCV (RBC) [Entitic vol] 79.7 fL Low 80-94 [facility] Comment on above: Performed By: #### L 500.4050, L501.5200, L100.0100, L503.6620, L506.0400, L501.9520 ####[facility] [address] [place], [address] Monocytes/100 WBC (Bld) 9.9 % Normal 0-10 [facility] Comment on above: Performed By: #### L 500.4050, L501.5200, L100.0100, L503.6620, L506.0400, L501.9520 ####[facility] [address] [place], [address] Neutrophils/100 WBC (Bld) 66.4 % Normal 47-70 [facility] Comment on above: Performed By: #### L 500.4050, L501.5200, L100.0100, L503.6620, L506.0400, L501.9520 ####[facility] [address] [place], [address] Nucleated RBC (Bld) [#/Vol] 0 10*3/uL Normal 0-5 [facility] Comment on above: Performed By: #### L 500.4050, L501.5200, L100.0100, L503.6620, L506.0400, L501.9520 ####[facility] [address] [place], [address] Platelet mean volume (Bld) [Entitic vol] 9.9 fL Normal 6.2-12.0 [facility] Comment on above: Performed By: #### L 500.4050, L501.5200, L100.0100, L503.6620, L506.0400, L501.9520 ####[facility] [address] [place], [address] Platelets (Bld) [#/Vol] 274 10*3/uL Normal 150-450 [facility] Comment on above: Performed By: #### L 500.4050, L501.5200, L100.0100, L503.6620, L506.0400, L501.9520 ####[facility] [address] [place], [address] RBC (Bld) [#/Vol] 4.18 10*6/uL Low 4.6-6.2 [facility] Comment on above: Performed By: #### L 500.4050, L501.5200, L100.0100, L503.6620, L506.0400, L501.9520 ####[facility] [address] [place], [address] RDW SD 52.7 fl High 35.1-43.9 [facility] Comment on above: Performed By: #### L 500.4050, L501.5200, L100.0100, L503.6620, L506.0400, L501.9520 ####[facility] [address] [place], [address] WBC (Bld) [#/Vol] 8.7 10*3/uL Normal 4.4-11.0 [facility] Comment on above: Performed By: #### L 500.4050, L501.5200, L100.0100, L503.6620, L506.0400, L501.9520 ####[facility] [address] [place], [address] Comprehensive Metabolic Prof nvon 12-12-2023 Albumin [Mass/Vol] 3.2 g/dL Normal 3.2-5.0 [facility] Comment on above: Performed By: #### L 500.4050, L501.5200, L100.0100, L503.6620, L506.0400, L501.9520 ####[facility] [address] [place], [address] Albumin/Globulin [Mass ratio] 0.7 {ratio} Low 0.9-2.4 [facility] Comment on above: Performed By: #### L 500.4050, L501.5200, L100.0100, L503.6620, L506.0400, L501.9520 ####[facility] [address] [place], [address] ALK P 79 U/L Normal 45-117 [facility] Comment on above: Performed By: #### L 500.4050, L501.5200, L100.0100, L503.6620, L506.0400, L501.9520 ####[facility] [address] [place], [address] ALT [Catalytic activity/Vol] 25 U/L Normal 16-61 [facility] Comment on above: Performed By: #### L 500.4050, L501.5200, L100.0100, L503.6620, L506.0400, L501.9520 ####[facility] [address] [place], [address] AST [Catalytic activity/Vol] 27 U/L Normal 15-37 [facility] Comment on above: Performed By: #### L 500.4050, L501.5200, L100.0100, L503.6620, L506.0400, L501.9520 ####[facility] [address] [place], [address] Bilirubin [Mass/Vol] 0.60 mg/dL Normal 0.20-1.00 [facility] Comment on above: Result Comment: For patients on eltrombopag therapy, use of Dimension [place] TBIL is not recommended. Performed By: #### L 500.4050, L501.5200, L100.0100, L503.6620, L506.0400, L501.9520 ####[facility] [address] [place], [address] BUN/CRE 21.7 RATIO High 10-20 [facility] Comment on above: Performed By: #### L 500.4050, L501.5200, L100.0100, L503.6620, L506.0400, L501.9520 ####[facility] [address] [place], [address] CA,Total 9.3 mg/dL Normal 8.5-10.1 [facility] Comment on above: Performed By: #### L 500.4050, L501.5200, L100.0100, L503.6620, L506.0400, L501.9520 ####[facility] [address] [place], [address] Chloride [Moles/Vol] 110 mmol/L High 98-107 [facility] Comment on above: Performed By: #### L 500.4050, L501.5200, L100.0100, L503.6620, L506.0400, L501.9520 ####[facility] [address] [place], [address] CO2 [Moles/Vol] 19.0 mmol/L Low 21.0-32.0 [facility] Comment on above: Performed By: #### L 500.4050, L501.5200, L100.0100, L503.6620, L506.0400, L501.9520 ####[facility] [address] [place], [address] Creatinine [Mass/Vol] 1.20 mg/dL Normal 0.70-1.30 [facility] Comment on above: Result Comment: The validity of the calculated GFR GFRAA in patients over70 years has not been determined. Clinical correlation isessential. Performed By: #### L 500.4050, L501.5200, L100.0100, L503.6620, L506.0400, L501.9520 ####[facility] [address] [place], [address] EST GFR - AA 79 mL/min Normal >60 [facility] Comment on above: Result Comment: Afri can [place] GFR Calc Performed By: #### L 500.4050, L501.5200, L100.0100, L503.6620, L506.0400, L501.9520 ####[facility] [address] [place], [address] GAP 10 Normal 5-15 [facility] Comment on above: Performed By: #### L 500.4050, L501.5200, L100.0100, L503.6620, L506.0400, L501.9520 ####[facility] [address] [place], [address] GFR/1.73 sq M.predicted among non-blacks MDRD (S/P/Bld) [Vol rate/Area] 66 mL/min/{1.73_m2} Normal >60 [facility] Comment on above: Result Comment: Non- GFR Calc Performed By: #### L 500.4050, L501.5200, L100.0100, L503.6620, L506.0400, L501.9520 ####[facility] [address] [place], [address] Globulin (S) [Mass/Vol] 4.9 g/dL High 2.2-4.2 [facility] Comment on above: Performed By: #### L 500.4050, L501.5200, L100.0100, L503.6620, L506.0400, L501.9520 ####[facility] [address] [place], [address] Glucose [Mass/Vol] 155 mg/dL High 74-106 [facility] Comment on above: Result Comment: Fast ing Glucose result greater than or equal to 126 mg/dLsuggests DIABETES MELLITUS per A.D.A. criteria. Performed By: #### L 500.4050, L501.5200, L100.0100, L503.6620, L506.0400, L501.9520 ####[facility] [address] [place], [address] Potassium [Moles/Vol] 3.9 mmol/L Normal 3.5-5.1 [facility] Comment on above: Performed By: #### L 500.4050, L501.5200, L100.0100, L503.6620, L506.0400, L501.9520 ####[facility] [address] [place], [address] Sodium [Moles/Vol] 139 mmol/L Normal 136-145 [facility] Comment on above: Performed By: #### L 500.4050, L501.5200, L100.0100, L503.6620, L506.0400, L501.9520 ####[facility] [address] [place], [address] T PROT 8.1 g/dL Normal 6.4-8.2 [facility] Comment on above: Performed By: #### L 500.4050, L501.5200, L100.0100, L503.6620, L506.0400, L501.9520 ####[facility] [address] [place], [address] Urea nitrogen [Mass/Vol] 26 mg/dL High 7-18 [facility] Comment on above: Performed By: #### L 500.4050, L501.5200, L100.0100, L503.6620, L506.0400, L501.9520 ####[facility] [address] [place], [address] Gastroenterology Visit Repor ton 12-12-2023 Gastroenterology Visit Report Normal [facility] Magnesiumon 12-12-2023 Magnesium [Mass/Vol] 2.1 mg/dL Normal 1.6-2.6 [facility] Comment on above: Performed By: #### L 500.4050, L501.5200, L100.0100, L503.6620, L506.0400, L501.9520 ####[facility] [address] [place], [address] T4 Free Directon 12-12-2023 T4 FREE DIRECT 1.29 ng/dL Normal 0.76-1.46 [facility] Comment on above: Performed By: #### L 500.4050, L501.5200, L100.0100, L503.6620, L506.0400, L501.9520 ####[facility] [address] [place], [address] Thyroid Stim Hormone (TSH)on 12-12-2023 TSH 0.800 uIU/mL Normal 0.358-3.74 0 [facility] Comment on above: Performed By: #### L 500.4050, L501.5200, L100.0100, L503.6620, L506.0400, L501.9520 ####[facility] [address] [place], [address] MR/BMS.BVSon 12-06-2023 MR/BMS.BVS Normal [facility] Endocrinology Visit Reporton 11-27-2023 Endocrinology Visit Report Normal [facility] Bedside Glucoseon 11-18-2023 FINGERSTICK GLU 103 mg/dL Normal 74-106 [facility] Comment on above: Result Comment: ANI BRADFORD OF PATIENT CARE PER NURSING PROTOCOL Performed By: #### L 501.080 ####[facility] [address] [place], [address] Office Visit Reporton 2023 Office Visit Report Normal [facility] 12 Lead EKGon 11-16-2023 12 Lead EKG Normal [facility] Basic Metabolic Profile (BMP )on 11-16-2023 BUN/CRE 18.2 RATIO Normal 10-20 [facility] Comment on above: Order Comment: 'TROP ' Serial specimen #1, #2 or #3: 1 Performed By: #### L 100.0100, L501.4020, L300.4310, L500.2500, L300.3900 ####[facility] [address] [place], [address] CA,Total 8.7 mg/dL Normal 8.5-10.1 [facility] Comment on above: Order Comment: 'TROP ' Serial specimen #1, #2 or #3: 1 Performed By: #### L 100.0100, L501.4020, L300.4310, L500.2500, L300.3900 ####[facility] [address] [place], [address] Chloride [Moles/Vol] 107 mmol/L Normal 98-107 [facility] Comment on above: Order Comment: 'TROP ' Serial specimen #1, #2 or #3: 1 Performed By: #### L 100.0100, L501.4020, L300.4310, L500.2500, L300.3900 ####[facility] [address] [place], [address] CO2 [Moles/Vol] 27.0 mmol/L Normal 21.0-32.0 [facility] Comment on above: Order Comment: 'TROP ' Serial specimen #1, #2 or #3: 1 Performed By: #### L 100.0100, L501.4020, L300.4310, L500.2500, L300.3900 ####[facility] [address] [place], [address] Creatinine [Mass/Vol] 1.37 mg/dL High 0.70-1.30 [facility] Comment on above: Order Comment: 'TROP ' Serial specimen #1, #2 or #3: 1 Result Comment: The validity of the calculated GFR GFRAA in patients over70 years has not been determined. Clinical correlation isessential. Performed By: #### L 100.0100, L501.4020, L300.4310, L500.2500, L300.3900 ####[facility] [address] [place], [address] ECRCL 81.83 ml/min Normal [facility] Comment on above: Order Comment: 'TROP ' Serial specimen #1, #2 or #3: 1 Performed By: #### L 100.0100, L501.4020, L300.4310, L500.2500, L300.3900 ####[facility] [address] [place], [address] EST GFR - AA 68 mL/min Normal >60 [facility] Comment on above: Order Comment: 'TROP ' Serial specimen #1, #2 or #3: 1 Result Comment: Afri can [place] GFR Calc Performed By: #### L 100.0100, L501.4020, L300.4310, L500.2500, L300.3900 ####[facility] [address] [place], [address] GAP 6 Normal 5-15 [facility] Comment on above: Order Comment: 'TROP ' Serial specimen #1, #2 or #3: 1 Performed By: #### L 100.0100, L501.4020, L300.4310, L500.2500, L300.3900 ####[facility] [address] [place], [address] GFR/1.73 sq M.predicted among non-blacks MDRD (S/P/Bld) [Vol rate/Area] 56 mL/min/{1.73_m2} Low >60 [facility] Comment on above: Order Comment: 'TROP ' Serial specimen #1, #2 or #3: 1 Result Comment: Non- GFR Calc Performed By: #### L 100.0100, L501.4020, L300.4310, L500.2500, L300.3900 ####[facility] [address] [place], [address] Glucose [Mass/Vol] 116 mg/dL High 74-106 [facility] Comment on above: Order Comment: 'TROP ' Serial specimen #1, #2 or #3: 1 Result Comment: Fast ing Glucose result from 100 to 125 mg/dLsuggests IMPAIRED HOMEOSTASIS per A.D.A. criteria. Performed By: #### L 100.0100, L501.4020, L300.4310, L500.2500, L300.3900 ####[facility] [address] [place], [address] Potassium [Moles/Vol] 3.9 mmol/L Normal 3.5-5.1 [facility] Comment on above: Order Comment: 'TROP ' Serial specimen #1, #2 or #3: 1 Performed By: #### L 100.0100, L501.4020, L300.4310, L500.2500, L300.3900 ####[facility] [address] [place], [address] Sodium [Moles/Vol] 140 mmol/L Normal 136-145 [facility] Comment on above: Order Comment: 'TROP ' Serial specimen #1, #2 or #3: 1 Performed By: #### L 100.0100, L501.4020, L300.4310, L500.2500, L300.3900 ####[facility] [address] [place], [address] Urea nitrogen [Mass/Vol] 25 mg/dL High 7-18 [facility] Comment on above: Order Comment: 'TROP ' Serial specimen #1, #2 or #3: 1 Performed By: #### L 100.0100, L501.4020, L300.4310, L500.2500, L300.3900 ####[facility] [address] [place], [address] CBC W/Diff, Automatedon 10-30 Absolute Lymph 2.30 X10 3/uL Normal 0.83-4.51 [facility] Comment on above: Performed By: #### L 100.0100, L501.4020, L300.4310, L500.2500, L300.3900 ####[facility] [address] [place], [address] Absolute Neut 7.5 X10 3/uL Normal 2.0-7.7 [facility] Comment on above: Performed By: #### L 100.0100, L501.4020, L300.4310, L500.2500, L300.3900 ####[facility] [address] [place], [address] Basophils/100 WBC (Bld) 0.7 % Normal 0-1 [facility] Comment on above: Performed By: #### L 100.0100, L501.4020, L300.4310, L500.2500, L300.3900 ####[facility] [address] [place], [address] Eosinophils/100 WBC (Bld) 2.8 % Normal 0-5 [facility] Comment on above: Performed By: #### L 100.0100, L501.4020, L300.4310, L500.2500, L300.3900 ####[facility] [address] [place], [address] Erythrocyte distribution width (RBC) [Ratio] 18.7 % High 11.6-14.6 [facility] Comment on above: Performed By: #### L 100.0100, L501.4020, L300.4310, L500.2500, L300.3900 ####[facility] [address] [place], [address] Hematocrit (Bld) [Volume fraction] 37.2 % Low 40-54 [facility] Comment on above: Performed By: #### L 100.0100, L501.4020, L300.4310, L500.2500, L300.3900 ####[facility] [address] [place], [address] Hemoglobin (Bld) [Mass/Vol] 11.3 g/dL Low 13.0-16.5 [facility] Comment on above: Performed By: #### L 100.0100, L501.4020, L300.4310, L500.2500, L300.3900 ####[facility] [id number] [place], [address] IG% 1.100 High 0.0-0.9 [facility] Comment on above: Result Comment: IG% - Immature Granulocytes (promyelocytes, myelocytes andmetamyelocytes) > 1% indicates that a LEFT SHIFT is Present. Performed By: #### L 100.0100, L501.4020, L300.4310, L500.2500, L300.3900 ####[facility] [address] [place], [address] Lymphocytes/100 WBC (Bld) 19.9 % Normal 19-41 [facility] Comment on above: Performed By: #### L 100.0100, L501.4020, L300.4310, L500.2500, L300.3900 ####[facility] [address] [place], [address] MCH (RBC) [Entitic mass] 24.0 pg Low 27.0-32.0 [facility] Comment on above: Performed By: #### L 100.0100, L501.4020, L300.4310, L500.2500, L300.3900 ####[facility] [address] [place], [address] MCHC (RBC) [Mass/Vol] 30.4 g/dL Low 32-36 [facility] Comment on above: Performed By: #### L 100.0100, L501.4020, L300.4310, L500.2500, L300.3900 ####[facility] [address] [place], [address] MCV (RBC) [Entitic vol] 79.0 fL Low 80-94 [facility] Comment on above: Performed By: #### L 100.0100, L501.4020, L300.4310, L500.2500, L300.3900 ####[facility] [address] [place], [address] Monocytes/100 WBC (Bld) 10.6 % High 0-10 [facility] Comment on above: Performed By: #### L 100.0100, L501.4020, L300.4310, L500.2500, L300.3900 ####[facility] [address] [place], [address] Neutrophils/100 WBC (Bld) 64.9 % Normal 47-70 [facility] Comment on above: Performed By: #### L 100.0100, L501.4020, L300.4310, L500.2500, L300.3900 ####[facility] [address] [place], [address] Nucleated RBC (Bld) [#/Vol] 0 10*3/uL Normal 0-5 [facility] Comment on above: Performed By: #### L 100.0100, L501.4020, L300.4310, L500.2500, L300.3900 ####[facility] [address] [place], [address] Platelet mean volume (Bld) [Entitic vol] 9.3 fL Normal 6.2-12.0 [facility] Comment on above: Performed By: #### L 100.0100, L501.4020, L300.4310, L500.2500, L300.3900 ####[facility] [address] [place], [address] Platelets (Bld) [#/Vol] 259 10*3/uL Normal 150-450 [facility] Comment on above: Performed By: #### L 100.0100, L501.4020, L300.4310, L500.2500, L300.3900 ####[facility] [address] [place], [address] RBC (Bld) [#/Vol] 4.71 10*6/uL Normal 4.6-6.2 [facility] Comment on above: Performed By: #### L 100.0100, L501.4020, L300.4310, L500.2500, L300.3900 ####[facility] [address] [place], [address] RDW SD 53.2 fl High 35.1-43.9 [facility] Comment on above: Performed By: #### L 100.0100, L501.4020, L300.4310, L500.2500, L300.3900 ####[facility] [address] [place], [address] WBC (Bld) [#/Vol] 11.6 10*3/uL High 4.4-11.0 [facility] Comment on above: Performed By: #### L 100.0100, L501.4020, L300.4310, L500.2500, L300.3900 ####[facility] [address] [place], [address] Chest 1 Viewon 11-16-2023 Chest 1 View Normal [facility] Emergency Department Summary on 11-16-2023 Emergency Department Summary Normal [facility] L501.4020on 11-16-2023 TROPONIN-I HS 16 pg/mL Normal 3.0-78.0 [facility] Comment on above: Order Comment: 'TROP ' Serial specimen #1, #2 or #3: 1 Result Comment: Plea se Note: New Test Units and Gender Specific Reference Ranges. For more information see Policy Stat Procedure [place] High Sensitivity Troponin (TNIH) and attachments. Performed By: #### L 100.0100, L501.4020, L300.4310, L500.2500, L300.3900 ####[facility] [address] [place], [address] Partial Thromboplast Timeon 11-16-2023 aPTT Coag (Bld) [Time] 28.5 s Normal 24.1-36.2 [facility] Comment on above: Performed By: #### L 100.0100, L501.4020, L300.4310, L500.2500, L300.3900 ####[facility] [address] [place], [address] Prothrombin Time w/INRon INR Coag (PPP) [Relative time] 1.2 {INR} Normal [facility] Comment on above: Performed By: #### L 100.0100, L501.4020, L300.4310, L500.2500, L300.3900 ####[facility] [address] [place], [address] PT Coag (PPP) [Time] 15.6 s High 11.7-14.9 [facility] Comment on above: Performed By: #### L 100.0100, L501.4020, L300.4310, L500.2500, L300.3900 ####[facility] [address] [place], [address] STROKE Brain/Head without Co nton 11-16-2023 STROKE Brain/Head without Cont Normal [facility] STROKE CTA Head AND Neck W/C onon 11-16-2023 STROKE CTA Head AND Neck W/Con Normal [facility] Alcohol, Blood (Medical)-Ser umon 11-14-2023 SERUM ETOH < 3.0 Normal [facility] Comment on above: Result Comment: The serum:whole blood ethanol ratio is approximately 1.14and varies slightly with hematocrit.Medical Alcohol reference interval and critical value innon-tolerant individuals; 50 - 100 Impairment 100 Intoxication 100 - 250 Severe Poisoning 250 - 400 Deep/possible fatal coma Performed By: #### L 501.9520, L501.9985, L506.0250, L501.9100 ####[facility] [address] [place], [address] Bedside Glucoseon 11-14-2023 FINGERSTICK GLU 126 mg/dL High 74-106 [facility] Comment on above: Result Comment: ANI GEMENT OF PATIENT CARE PER NURSING PROTOCOL Performed By: #### L 501.080 ####[facility] [address] [place], [address] FINGERSTICK GLU 91 mg/dL Normal 74-106 [facility] Comment on above: Result Comment: ANI GEMENT OF PATIENT CARE PER NURSING PROTOCOL Performed By: #### L 501.080 ####[facility] [address] [place], [address] FINGERSTICK GLU 143 mg/dL High 74-106 [facility] Comment on above: Result Comment: ANI BRADFORD OF PATIENT CARE PER NURSING PROTOCOL Performed By: #### L 501.080 ####[facility] [address] [place], [place], [address] Brain without Contraston Brain without Contrast Normal [facility] Carotid Duplex Ultrasoundon 11-14-2023 Carotid Duplex Ultrasound Normal [facility] Consultation - Surgicalon Consultation - Surgical Normal [facility] Discharge Instructionon 10-30 Discharge Instruction Normal [facility] Folates, (Folic Acid)on 10-30 FOLATES 5.80 ng/mL Normal 3.1-55.4 [facility] Comment on above: Order Comment: Has P atient had X-rays with Contrast this admission? NN Performed By: #### L 501.9520, L501.9985, L506.0250, L501.9100 ####[facility] [address] [place], [address] Hemoglobin A1con 11-14-2023 HbA1c (Bld) [Mass fraction] 7.8 % High 3.8-5.6 [facility] Comment on above: Result Comment: Norm al < 5.7 % Prediabetic 5.7 - 6.4 % Diabetic >or= 6.5 % Please note range changes. Performed By: #### L 501.9520, L501.9985, L506.0250, L501.9100 ####[facility] [address] [place], [address] Lipid Profileon 11-14-2023 Cholesterol [Mass/Vol] 125 mg/dL Normal 200 [facility] Comment on above: Order Comment: Comme nts: NPO at [place] prior to lipid panel Result Comment: <200 mg/dL Desirable 200-240 mg/dL Borderline >240 mg/dL High Risk Performed By: #### L 500.0840 ####[facility] [address] [place], [address] Cholesterol in HDL [Mass/Vol] 41 mg/dL Normal [facility] Comment on above: Order Comment: Comme nts: NPO at [place] prior to lipid panel Result Comment: The drugs N-Acetylcysteine and Metamizole may falselydepress this assay. Reference Range HDL <40 mg/dL Low HDL Cholesterol HDL >or= 60 mg/dL High HDL Cholesterol Performed By: #### L 500.4100 ####[facility] [address] [place], [address] Cholesterol in LDL [Mass/Vol] 56 mg/dL Normal 0-130 [facility] Comment on above: Order Comment: Comme nts: NPO at [place] prior to lipid panel Performed By: #### L 500.4100 ####[facility] [address] [place], [address] Cholesterol in VLDL [Mass/Vol] 28 mg/dL Normal 5-40 [facility] Comment on above: Order Comment: Comme nts: NPO at [place] prior to lipid panel Performed By: #### L 500.4100 ####[facility] [address] [place], [address] Triglyceride [Mass/Vol] 140 mg/dL Normal [facility] Comment on above: Order Comment: Comme nts: NPO at [place] prior to lipid panel Result Comment: The drugs N-Acetylcysteine and Metamizole may falselydepress this assay.Serum Triglycerides Reference Interval Normal <150 mg/dL Borderline high 150 - 199 mg/dL High 200 - 499 mg/dL Very High > or = 500 mg/dL Performed By: #### L 500.4100 ####[facility] [address] [place], [address] MR/CON.PCM.NEon 11-14-2023 MR/CON.PCM.NE Normal [facility] Thyroid Stim Hormone (TSH)on 11-14-2023 TSH 3.910 uIU/mL High 0.358-3.74 0 [facility] Comment on above: Order Comment: Has P dany had X-rays with Contrast this admission? NN Performed By: #### L 501.9520, L501.9985, L506.0250, L501.9100 ####[facility] [address] [place], [address] Vitamin B12on 11-14-2023 Cobalamin (Vitamin B12) [Mass/Vol] 340 pg/mL Normal 211-911 [facility] Comment on above: Performed By: #### L 503.0105 ####[facility] [address] [place], [address] Basic Metabolic Profile (BMP )on 11-13-2023 BUN/CRE 21.8 RATIO High 10-20 [facility] Comment on above: Order Comment: 'TROP ' Serial specimen #1, #2 or #3: 1 Performed By: #### L 500.2500, L300.3900, L100.0100, L501.4020 ####[facility] [address] [place], [address] CA,Total 8.6 mg/dL Normal 8.5-10.1 [facility] Comment on above: Order Comment: 'TROP ' Serial specimen #1, #2 or #3: 1 Performed By: #### L 500.2500, L300.3900, L100.0100, L501.4020 ####[facility] [address] [place], [address] Chloride [Moles/Vol] 103 mmol/L Normal 98-107 [facility] Comment on above: Order Comment: 'TROP ' Serial specimen #1, #2 or #3: 1 Performed By: #### L 500.2500, L300.3900, L100.0100, L501.4020 ####[facility] [address] [place], [address] CO2 [Moles/Vol] 22.0 mmol/L Normal 21.0-32.0 [facility] Comment on above: Order Comment: 'TROP ' Serial specimen #1, #2 or #3: 1 Performed By: #### L 500.2500, L300.3900, L100.0100, L501.4020 ####[facility] [address] [place], [address] Creatinine [Mass/Vol] 1.56 mg/dL High 0.70-1.30 [facility] Comment on above: Order Comment: 'TROP ' Serial specimen #1, #2 or #3: 1 Result Comment: The validity of the calculated GFR GFRAA in patients over70 years has not been determined. Clinical correlation isessential. Performed By: #### L 500.2500, L300.3900, L100.0100, L501.4020 ####[facility] [address] [place], [address] ECRCL 72.64 ml/min Normal [facility] Comment on above: Order Comment: 'TROP ' Serial specimen #1, #2 or #3: 1 Performed By: #### L 500.2500, L300.3900, L100.0100, L501.4020 ####[facility] [address] [place], [address] EST GFR - AA 59 mL/min Low >60 [facility] Comment on above: Order Comment: 'TROP ' Serial specimen #1, #2 or #3: 1 Result Comment: Afri can [place] GFR Calc Performed By: #### L 500.2500, L300.3900, L100.0100, L501.4020 ####[facility] [address] [place], [address] GAP 8 Normal 5-15 [facility] Comment on above: Order Comment: 'TROP ' Serial specimen #1, #2 or #3: 1 Performed By: #### L 500.2500, L300.3900, L100.0100, L501.4020 ####[facility] [address] [place], [address] GFR/1.73 sq M.predicted among non-blacks MDRD (S/P/Bld) [Vol rate/Area] 49 mL/min/{1.73_m2} Low >60 [facility] Comment on above: Order Comment: 'TROP ' Serial specimen #1, #2 or #3: 1 Result Comment: Non- GFR Calc Performed By: #### L 500.2500, L300.3900, L100.0100, L501.4020 ####[facility] [address] [place], [address] Glucose [Mass/Vol] 258 mg/dL High 74-106 [facility] Comment on above: Order Comment: 'TROP ' Serial specimen #1, #2 or #3: 1 Result Comment: Gluc ose result greater than or equal to 200 mg/dLsuggests DIABETES MELLITUS per A.D.A. criteria. Performed By: #### L 500.2500, L300.3900, L100.0100, L501.4020 ####[facility] [address] [place], [address] Potassium [Moles/Vol] 4.9 mmol/L Normal 3.5-5.1 [facility] Comment on above: Order Comment: 'TROP ' Serial specimen #1, #2 or #3: 1 Performed By: #### L 500.2500, L300.3900, L100.0100, L501.4020 ####[facility] [address] [place], [address] Sodium [Moles/Vol] 133 mmol/L Low 136-145 [facility] Comment on above: Order Comment: 'TROP ' Serial specimen #1, #2 or #3: 1 Performed By: #### L 500.2500, L300.3900, L100.0100, L501.4020 ####[facility] [address] [place], [address] Urea nitrogen [Mass/Vol] 34 mg/dL High 7-18 [facility] Comment on above: Order Comment: 'TROP ' Serial specimen #1, #2 or #3: 1 Performed By: #### L 500.2500, L300.3900, L100.0100, L501.4020 ####[facility] [address] [place], [address] Bedside Glucoseon 11-13-2023 FINGERSTICK GLU 256 mg/dL High 74-106 [facility] Comment on above: Result Comment: ANI BRADFORD OF PATIENT CARE PER NURSING PROTOCOL Performed By: #### L 501.080 ####[facility] [address] [place], [address] CBC W/Diff, Automatedon 10-30 SMEAR COMMENT SCANNED Normal [facility] Comment on above: Performed By: #### L 500.2500, L300.3900, L100.0100, L501.4020 ####[facility] [address] [place], [address] CTA Head AND Neck W/ Contras ton 11-13-2023 CTA Head AND Neck W/ Contrast Normal [facility] Chest PA and Lateralon 11-12 Chest PA and Lateral Normal [facility] Emergency Department Summary on 11-13-2023 Emergency Department Summary Normal [facility] H AND P Exam - Hospitaliston 11-13-2023 H&P Exam - Hospitalist Normal [facility] L501.4020on 11-13-2023 TROPONIN-I HS 13 pg/mL Normal 3.0-78.0 [facility] Comment on above: Order Comment: 'TROP ' Serial specimen #1, #2 or #3: 1 Result Comment: Kodi monterroso Note: New Test Units and Gender Specific Reference Ranges. For more information see Policy Stat Procedure [place] High Sensitivity Troponin (TNIH) and attachments. Performed By: #### L 500.2500, L300.3900, L100.0100, L501.4020 ####[facility] [address] [place], [address] Partial Thromboplast Timeon 11-13-2023 aPTT Coag (Bld) [Time] 27.8 s Normal 24.1-36.2 [facility] Comment on above: Order Comment: REDRA W. PREVIOUS SPECIMEN REJECTED DUE TOCLOTTED SPECIMEN. 11/13/232051. Performed By: #### L 300.4310, L300.3900 ####[facility] [address] [place], [address] Prothrombin Time w/INRon INR Coag (PPP) [Relative time] 1.2 {INR} Normal [facility] Comment on above: Order Comment: REDRA W. PREVIOUS SPECIMEN REJECTED DUE TOCLOTTED SPECIMEN. 11/13/232051. Performed By: #### L 300.4310, L300.3900 ####[facility] [address] [place], [address] PT Coag (PPP) [Time] 14.8 s Normal 11.7-14.9 [facility] Comment on above: Order Comment: REDRA W. PREVIOUS SPECIMEN REJECTED DUE TOCLOTTED SPECIMEN. 11/13/232051. Performed By: #### L 300.4310, L300.3900 ####[facility] [address] [place], [address] INR Normal [facility] Comment on above: Result Comment: This specimen has been REJECTED due to Laboratory criteria:Clotted.ED-EITAN has been notified of need of recollection.11/13/232050 Kandice Escobedo Performed By: #### L 500.2500, L300.3900, L100.0100, L501.4020 ####[facility] [address] [place], [address] PROTIME Normal 11.7-14.9 [facility] Comment on above: Result Comment: This specimen has been REJECTED due to Laboratory criteria:Clotted.ED-EITAN has been notified of need of recollection.11/13/232050 Kandice Escobedo Performed By: #### L 500.2500, L300.3900, L100.0100, L501.4020 ####[facility] [address] [place], [address] Bedside Glucoseon 11-04-2023 FINGERSTICK GLU 170 mg/dL High 74-106 [facility] Comment on above: Result Comment: ANI BRADFORD OF PATIENT CARE PER NURSING PROTOCOL Performed By: #### L 501.080 ####[facility] [address] [place], [address] Fluor Guidance for Spine Inj on 11-04-2023 Fluor Guidance for Spine Inj Normal [facility] MR/POSTOP.ANEon 11-04-2023 MR/POSTOP.ANE Normal [facility] MR/ZRRXGTEN3ah 11-04-2023 MR/POSTOPAN2 Normal [facility] Operative Reporton Operative Report Normal [facility] 6 Minute Walk Teston 024 6 Minute Walk Test Normal [facility] 36on 10-17-2023 36 Per La, patient h as been placed in recall Normal [facility] Cardiology Visit Reporton Cardiology Visit Report Normal [facility] AWAIS + Protein Elect, Serumon 10-16-2023 Albumin [Mass/Vol] 3.6 g/dL Normal 2.9-4.4 [facility] Comment on above: Order Comment: N Performed By: #### L 3600.4030, L3154.6795 ####[facility] [address] [place], [address] Albumin/Globulin [Mass ratio] 0.9 {ratio} Normal 0.7-1.7 [facility] Comment on above: Order Comment: N Performed By: #### L 3600.4030, L3100.3425 ####[facility] [address] [place], [address] LGMIM-5-DLHO 0.3 g/dL Normal 0.0-0.4 [facility] Comment on above: Order Comment: N Performed By: #### L 3600.4030, L3100.3425 ####[facility] [address] [place], [address] OXASW-5-YQKB 1.0 g/dL Normal 0.4-1.0 [facility] Comment on above: Order Comment: N Performed By: #### L 3600.4030, L3100.3425 ####[facility] [address] [place], [address] BETA GLOBULIN 1.2 g/dL Normal 0.7-1.3 [facility] Comment on above: Order Comment: N Performed By: #### L 3600.4030, L3100.3425 ####[facility] [address] [place], [address] GAMMA GLOBULIN 2.0 g/dL High 0.4-1.8 [facility] Comment on above: Order Comment: N Performed By: #### L 3600.4030, L3100.3425 ####[facility] [address] [place], [address] Globulin (S) [Mass/Vol] 4.5 g/dL Abnormal 2.2-3.9 [facility] Comment on above: Order Comment: N Performed By: #### L 3600.4030, L3100.3425 ####[facility] [address] [place], [address] AWAIS RESULT,S Comment Normal . [facility] Comment on above: Order Comment: N Result Comment: No m onoclonality detected. Performed By: #### L 3600.4030, L3100.3425 ####[facility] [address] [place], [address] IMMUNOGLOB A QN 304 mg/dL Normal 90-386 [facility] Comment on above: Order Comment: N Performed By: #### L 3600.4030, L3100.3425 ####[facility] [address] [place], [address] IMMUNOGLOB G QN 1968 mg/dL High 603-1613 [facility] Comment on above: Order Comment: N Performed By: #### L 3600.4030, L3100.3425 ####[facility] [address] [place], [address] IMMUNOGLOB M QN 209 mg/dL High 20-172 [facility] Comment on above: Order Comment: N Performed By: #### L 3600.4030, L3100.3425 ####[facility] [address] [place], [address] M-Aaron Not Observed Normal Not Observed [facility] Comment on above: Order Comment: N Performed By: #### L 3600.4030, L3100.3425 ####[facility] [address] [place], [address] NOTE: Comment Normal . [facility] Comment on above: Order Comment: N Result Comment: Prot ein electrophoresis scan will follow via computer,mail, or rental sales representative delivery. Performed By: #### L 3600.4030, L3100.3425 ####[facility] [address] [place], [address] Protein [Mass/Vol] 8.1 g/dL Normal 6.0-8.5 [facility] Comment on above: Order Comment: N Performed By: #### L 3600.4030, L3100.3425 ####[facility] [address] [place], [address] Immunofixation Urineon 10-15 AWAIS Urine Comment Normal . [facility] Comment on above: Order Comment: N Result Comment: No m onoclonality detected.Performed at: [address] [id number] Director: Chance Morales PhD, Phone: [phone] Performed By: #### L 3600.4030, L3956.3421 ####[facility] [address] [place], [place], [id number] 36on 10-15-2023 36 La -- per Dr. Arnel sierra's 10/04/23 consult note, patient is to have a repeat of his carotid US in 6 months for close surveillance; can you please place patient in recall as well as an order for a CU for April 2024? Normal [facility] Neurology Visit Reporton Neurology Visit Report Normal [facility] MR/BMS.BVSon 10-08-2023 MR/BMS.BVS Normal [facility] [place] Lambda Light Chainson 10-06-2023 FR KAPPA LT CHN 79.0 mg/L Abnormal 3.3-19.4 [facility] Comment on above: Order Comment: Test( s) 572175-Vbe. B1, Whole Bloodwas developed and its performance characteristicsdetermined by [facility]. It has not been cleared or approvedby the Food and Drug Administration. Performed By: #### L 506.0250, L3300.8000, L500.4100, L501.4700, L503.0105, L3130.0010 ####[facility] [address] [place], [address] FR LAMBDA LT CH 46.8 mg/L Abnormal 5.7-26.3 [facility] Comment on above: Order Comment: Test( s) 992759-Wky. B1, Whole Bloodwas developed and its performance characteristicsdetermined by [facility]. It has not been cleared or approvedby the Food and Drug Administration. Performed By: #### L 506.0250, L3300.8000, L500.4100, L501.4700, L503.0105, L3130.0010 ####[facility] [address] [place], [place], [id number] KAPPA/LAMBDA % 1.69 Abnormal 0.26-1.65 [facility] Comment on above: Order Comment: Test( s) 552434-Nla. B1, Whole Bloodwas developed and its performance characteristicsdetermined by [facility]. It has not been cleared or approvedby the Food and Drug Administration. Performed By: #### L 506.0250, L3300.8000, L500.4100, L501.4700, L503.0105, L3130.0010 ####[facility] [address] [facility] [place], [address] Vitamin B1, Thiamineon 10-05 VIT B1 THIAMINE 128.1 nmol/L Normal 66.5-200.0 [facility] Comment on above: Order Comment: Test( s) 533254-Xvd. B1, Whole Bloodwas developed and its performance characteristicsdetermined by [facility]. It has not been cleared or approvedby the Food and Drug Administration. Result Comment: Perf ormed at: [facility] Lab[facility] [address] [address] [id number] Director: Chance Morales PhD, Phone: [phone] at: [address] [id number] Director: Rhina Norris MD, Phone: [phone] Performed By: #### L 506.0250, L3300.8000, L500.4100, L501.4700, L503.0105, L3130.0010 ####[facility] [address] [place], [address] CBC (HEMOGRAM)on 10-05-2023 Erythrocyte distribution width (RBC) [Ratio] 17.7 % High 11.5-15.0 [facility] Comment on above: Performed By: #### L [id number] ####Scientific Helper: RADHA SIMMONS ([id number])[address] Hematocrit (Bld) [Volume fraction] 36.7 % Low 40.0-52.0 [facility] Comment on above: Performed By: #### L [id number] ####Scientific Helper: RADHA SIMMONS ([id number])[facility])[address] [place] [address] Hemoglobin (Bld) [Mass/Vol] 11.3 g/dL Low 13.0-18.0 [facility] Comment on above: Performed By: #### L AB294 ####Scientific Helper: RADHA SIMMONS ([id number])[facility])[address] [place] [address] MCH (RBC) [Entitic mass] 23.3 pg Low 26.0-34.0 [facility] Comment on above: Performed By: #### L AB294 ####Scientific Helper: RADHA SIMMONS ([id number])[facility])[address] [place] [address] MCHC 30.8 % Normal 30.5-36.0 [facility] Comment on above: Performed By: #### L AB294 ####Scientific Helper: RADHA SIMMONS ([id number])[facility])[address] [place] [address] MCV (RBC) [Entitic vol] 75.7 fL Low 77.0-99.0 [facility] Comment on above: Performed By: #### L AB294 ####Scientific Helper: RADHA SIMMONS ([id number])[facility])[address] [place] [address] Platelet mean volume (Bld) [Entitic vol] 10.1 fL Normal 9.0-12.7 [facility] Comment on above: Performed By: #### L AB294 ####Scientific Helper: RADHA SIMMONS ([id number])[facility])[address] [place] [address] Platelets (Bld) [#/Vol] 221 10*3/uL Normal 140-440 [facility] Comment on above: Performed By: #### L AB294 ####Scientific Helper: RADHA SIMMONS ([id number])[facility])[address] [place] [address] [place] RBC (Bld) [#/Vol] 4.85 10*6/uL Normal 4.40-5.90 [facility] Comment on above: Performed By: #### L AB294 ####Scientific Helper: RADHA SIMMONS ([id number])[facility])[address] [place] [address] WBC (Bld) [#/Vol] 9.9 10*3/uL Normal 3.6-10.7 [facility] Comment on above: Performed By: #### L AB294 ####Scientific Helper: RADHA SIMMONS ([phone])[facility] ([facility])[address] [place] [address] CBC panel Auto (Bld)Ordered By: Russel Sanchez on 10-05-2023 Erythrocyte distribution width (RBC) [Ratio] 17.7 % High 11.5 - 15.0 % [facility] Hematocrit (Bld) [Volume fraction] 36.7 % Low 40.0 - 52.0 % [facility] Hemoglobin (Bld) [Mass/Vol] 11.3 g/dL Low 13.0 - 18.0 g/dL [facility] Interpretation and review of laboratory results Abnormal [facility] MCH (RBC) [Entitic mass] 23.3 pg Low 26.0 - 34.0 pg [facility] MCHC (RBC) [Mass/Vol] 30.8 % 30.5 - 36.0 % [facility] MCV (RBC) [Entitic vol] 75.7 fL Low 77.0 - 99.0 fL [facility] Platelet mean volume (Bld) [Entitic vol] 10.1 fL 9.0 - 12.7 fL [facility] Platelets (Bld) [#/Vol] 221 10*3/uL 140 - 440 10*3/uL [facility] RBC (Bld) [#/Vol] 4.85 10*6/uL 4.40 - 5.90 10*6/uL [facility] WBC (Bld) [#/Vol] 9.9 10*3/uL 3.6 - 10.7 10*3/uL [facility] COMPREHENSIVE METABOLIC PANE Julio César 10-05-2023 Albumin [Mass/Vol] 4.1 g/dL Normal 3.5-5.0 [facility] Comment on above: Performed By: #### L AB17 ####Scientific Helper: RADHA SIMMONS ([id number])[facility] ([facility])[address] [place] [address] ALP [Catalytic activity/Vol] 101 U/L Normal 38-126 [facility] Comment on above: Performed By: #### L AB17 ####Scientific Helper: RADHA SIMMONS ([id number])[facility] ([facility])[address] [place] [address] ALT [Catalytic activity/Vol] 21 U/L Normal 0-49 [facility] Comment on above: Performed By: #### L AB17 ####Scientific Helper: RADHA SIMMONS ([id number])[facility] ([facility])[address] [place] [address] Anion gap [Moles/Vol] 12 mmol/L Normal 3-13 [facility] Comment on above: Performed By: #### L AB17 ####Scientific Helper: RADHA SIMMONS ([id number])[facility] ([facility])[address] [place] [address] AST [Catalytic activity/Vol] 29 U/L Normal 15-46 [facility] Comment on above: Performed By: #### L AB17 ####Scientific Helper: RADHA SIMMONS ([id number])[facility] ([facility])[address] [place] [address] Bilirubin [Mass/Vol] 1.2 mg/dL Normal 0.2-1.3 [facility] Comment on above: Performed By: #### L AB17 ####Scientific Helper: RADHA SIMMONS ([id number])[facility] ([facility])[address] [place] [address] Calcium [Mass/Vol] 9.0 mg/dL Normal 8.4-10.4 [facility] Comment on above: Performed By: #### L AB17 ####Scientific Helper: RADHA SIMMONS ([id number])[facility] ([facility])[address] [place] [address] Chloride [Moles/Vol] 102 mmol/L Normal 98-107 [facility] Comment on above: Performed By: #### L AB17 ####Scientific Helper: RADHA SIMMONS ([id number])[facility] ([facility])[address] [place] [address] CO2 [Moles/Vol] 20 mmol/L Low 22-30 [facility] Comment on above: Performed By: #### L AB17 ####Scientific Helper: RADHA SIMMONS ([id number])[facility] ([facility])[address] [place] [address] Creatinine [Mass/Vol] 0.89 mg/dL Normal 0.66-1.25 [facility] Comment on above: Performed By: #### L AB17 ####Scientific Helper: RADHA SIMMONS ([id number])[facility] ([facility])[address] [place] [address] GLOMERULAR FILTRATION RATE ML/MIN/1.73 SQ M.PREDICTED >90.0 Normal >60.0 [facility] Comment on above: Result Comment: Calc ulation based on the Chronic Kidney Disease Epidemiology Collaboration (CKD-EPI) equation refit without adjustment for race Performed By: #### L AB17 ####Scientific Helper: RADHA SIMMONS ([id number])[facility] ([facility])[address] [place] [address] [place] Glucose [Mass/Vol] 217 mg/dL High 70-100 [facility] Comment on above: Performed By: #### L AB17 ####Scientific Helper: RADHA SIMMONS ([id number])[facility] ([facility])[address] [place] [address] [place] Potassium [Moles/Vol] 4.3 mmol/L Normal 3.5-5.1 [facility] Comment on above: Performed By: #### L AB17 ####Scientific Helper: RADHA SIMMONS ([id number])[facility] ([facility])[address] [place] [address] Protein [Mass/Vol] 8.0 g/dL Normal 6.3-8.2 [facility] Comment on above: Performed By: #### L AB17 ####Scientific Helper: RADHA SIMMONS ([id number])[address] Sodium [Moles/Vol] 134 mmol/L Low 135-145 [facility] Comment on above: Performed By: #### L AB17 ####Scientific Helper: RADHA SIMMONS ([id number])[facility])[address] [place] [address] Urea nitrogen [Mass/Vol] 20 mg/dL Normal 9-20 [facility] Comment on above: Performed By: #### L AB17 ####Scientific Helper: RADHA SIMMONS ([id number])[address] Comprehensive metabolic 1998 panelon 10-05-2023 Albumin [Mass/Vol] 4.1 g/dL 3.5 - 5.0 g/dL [facility] ALP [Catalytic activity/Vol] 101 U/L 38 - 126 U/L [facility] ALT [Catalytic activity/Vol] 21 U/L 0 - 49 U/L [facility] Anion gap [Moles/Vol] 12 mmol/L 3 - 13 mmol/L [facility] AST [Catalytic activity/Vol] 29 U/L 15 - 46 U/L [facility] Bilirubin [Mass/Vol] 1.2 mg/dL 0.2 - 1 .3 mg/dL [facility] Calcium [Mass/Vol] 9.0 mg/dL 8.4 - 10. 4 mg/dL [facility] Chloride [Moles/Vol] 102 mmol/L 98 - 10 7 mmol/L [facility] CO2 [Moles/Vol] 20 mmol/L Low 22 - 30 mmol/L [facility] Creatinine [Mass/Vol] 0.89 mg/dL 0.66 - 1.25 mg/dL [facility] GFR/1.73 sq M.predicted MDRD (S/P/Bld) [Vol rate/Area] - PINF [facility] Comment on above: Calculation based on the Chronic Kidney Disease Epidemiology Collaboration (CKD-EPI) equation refit without adjustment for race Glucose [Mass/Vol] 217 mg/dL High 70 - 100 mg/dL [facility] Interpretation and review of laboratory results Abnormal [facility] Potassium [Moles/Vol] 4.3 mmol/L 3.5 - 5.1 mmol/L [facility] Protein [Mass/Vol] 8.0 g/dL 6.3 - 8.2 g/dL [facility] Sodium [Moles/Vol] 134 mmol/L Low 135 - 145 mmol/L [facility] Urea nitrogen [Mass/Vol] 20 mg/dL 9 - 20 mg/dL [facility] ECG 12-LEADon 10-05-2023 ECG 12-LEAD IMPRESSION: Sinus rhythm Left ventricular hypertrophy Anterior Q waves, possibly due to LVH Electronically Signed On 10-05-2023 14:51:39 EDT by Lisa Fernandez [facility] IDNon 10-05-2023 IDN The patient is Moder ately Stable - Low risk of patient condition declining or worsening The patient's goals for the shift include The clinical goals for the shift include Over the shift, the patient did not make progress toward the following goals. Barriers to progression include . Recommendations to address these barriers include . Patient discharged. [facility] IDN The patient is Moder ately [...] address these barriers include reorient frequently. Normal [facility] Laboratory - Chemistry and C hemistry - challengeon 10-05-2023 Glucose [Mass/Vol] 215 mg/dL High 70 - 100 mg/dL [facility] Comment on above: Caregiver Notified; Glucose [Mass/Vol] 226 mg/dL High 70 - 100 mg/dL [facility] Comment on above: Caregiver Notified; No Panel InformationOrdered By: Lisa Fernandez on 10-05-2023 Heart Rate 77 bpm [facility] [employer] Work Phone: P [place] 12 degrees [facility] [employer] Work Phone: LA Interval 160 ms [facility] [employer] Work Phone: QRS [place] -16 degrees [facility] [employer] Work Phone: QRSD Interval 113 ms [facility] Work Phone: [phone] QT Interval 401 ms [facility] Work Phone: [phone] QTC Interval 453 ms [facility] [employer] Work Phone: [phone] T Wave [place] 16 degrees [facility] [employer] Work Phone: [phone] [facility] Work Phone: [phone] No Panel Informationon 10-04 Sinus rhythm Left ventricular hypertrophy Anterior Q waves, possibly due to LVH Electronically Signed On 10-05-2023 14:51:39 EDT by Lisa Fernandez CV Lisa Patton MD - 10/05/2023 IMPRESSION: Sinus rhythm Left ventricular hypertrophy Anterior Q waves, possibly due to LVH Electronically Signed On 10-05-2023 14:51:39 EDT by Lisa Fernandez [facility] Interpretation and review of laboratory results Abnormal [facility] [employer] Performed by: [facility], [address] [place] [address] CLIA ID: [id number] [facility] Interpretation and review of laboratory results Abnormal [facility] Performed by: [facility], [address] [place] [address] CLIA ID: [id number] [facility] Nursing Noteon 10-05-2023 Nursing Note Patient discharged a t this time. Patient alert and oriented, reviewed discharge instructions with patient and daughter. PIV removed, tele removed. Normal [facility] Progress Noteon 10-05-2023 Progress Note Nutrition rescreen completed. Chart reviewed. Patient to be monitored and followed by the diet global position system technician. Dietitian available upon request. Normal [facility] BASIC METABOLIC PANELon 07-0 Anion gap [Moles/Vol] 11 mmol/L Normal 3-13 [facility] Comment on above: Performed By: #### L AB15 ####Scientific Helper: RADHA SIMMONS ([id number])[facility] ([facility])[address] [place] [address] Calcium [Mass/Vol] 9.3 mg/dL Normal 8.4-10.4 [facility] Comment on above: Performed By: #### L AB15 ####Scientific Helper: RADHA SIMMONS ([id number])[facility] ([facility])[address] [place] [address] Chloride [Moles/Vol] 105 mmol/L Normal 98-107 [facility] Comment on above: Performed By: #### L AB15 ####Scientific Helper: RADHA SIMMONS ([id number])[facility] ([facility])[address] [place] [address] CO2 [Moles/Vol] 19 mmol/L Low 22-30 [facility] Comment on above: Performed By: #### L AB15 ####Scientific Helper: RADHA SIMMONS ([id number])[facility])[address] [place] [address] Creatinine [Mass/Vol] 0.77 mg/dL Normal 0.66-1.25 [facility] Comment on above: Performed By: #### L AB15 ####Scientific Helper: RADHA SIMMONS ([id number])[facility])[address] [place] [address] GLOMERULAR FILTRATION RATE ML/MIN/1.73 SQ M.PREDICTED >90.0 Normal >60.0 [facility] Comment on above: Result Comment: Calc ulation based on the Chronic Kidney Disease Epidemiology Collaboration (CKD-EPI) equation refit without adjustment for race Performed By: #### L AB15 ####Scientific Helper: RADHA SIMMONS ([id number])[facility] ([facility])[address] [place] [address] Glucose [Mass/Vol] 177 mg/dL High 70-100 [facility] Comment on above: Performed By: #### L AB15 ####Scientific Helper: RADHA SIMMONS ([phone])[facility])[address] [place] [address] Potassium [Moles/Vol] 4.4 mmol/L Normal 3.5-5.1 [facility] Comment on above: Performed By: #### L AB15 ####Scientific Helper: RADHA [id number])[facility] ([facility])[address] [place] [address] Sodium [Moles/Vol] 134 mmol/L Low 135-145 [facility] Comment on above: Performed By: #### L AB15 ####Scientific Helper: RADAH SIMMONS ([id number])[facility] ([facility])[address] [place] [address] Urea nitrogen [Mass/Vol] 17 mg/dL Normal 9-20 [facility] Comment on above: Performed By: #### L AB15 ####Scientific Helper: RADHA SIMMONS ([id number])[facility] ([facility])[address] [place] [address] Basic metabolic 1998 panelon 10-04-2023 Anion gap [Moles/Vol] 11 mmol/L 3 - 13 mmol/L [facility] Calcium [Mass/Vol] 9.3 mg/dL 8.4 - 10. 4 mg/dL [facility] Chloride [Moles/Vol] 105 mmol/L 98 - 10 7 mmol/L [facility] CO2 [Moles/Vol] 19 mmol/L Low 22 - 30 mmol/L [facility] Creatinine [Mass/Vol] 0.77 mg/dL 0.66 - 1.25 mg/dL [facility] GFR/1.73 sq M.predicted MDRD (S/P/Bld) [Vol rate/Area] - PINF [facility] Comment on above: Calculation based on the Chronic Kidney Disease Epidemiology Collaboration (CKD-EPI) equation refit without adjustment for race Glucose [Mass/Vol] 177 mg/dL High 70 - 100 mg/dL [facility] Interpretation and review of laboratory results Abnormal [facility] Potassium [Moles/Vol] 4.4 mmol/L 3.5 - 5.1 mmol/L [facility] Sodium [Moles/Vol] 134 mmol/L Low 135 - 145 mmol/L [facility] Urea nitrogen [Mass/Vol] 17 mg/dL 9 - 20 mg/dL [facility] CARECOORDon 10-04-2023 [facility] Managment Initi al Assessment Date: 10/04/2023 Patient Name: Krunal Leos : 1965 Patient Information Source of Information: Patient Cognition/Language: WFL - Within Functional Limits Permission given to speak with patient mechanical service representative/caregiver as indicated: Confirmation of Payer with patient/family: Yes Payer Name: Medical [place] : No Confirmation of Primary Care Physician: [...] 0 x 3. He was transferred from [facility] with CVA/TIA. Vascular and Neurology have been consulted. Needs carotid US. Anticipate home with no needs when stable.. . Gris Keith RN Normal [facility] CBC (HEMOGRAM)on 10-04-2023 Erythrocyte distribution width (RBC) [Ratio] 17.9 % High 11.5-15.0 [facility] Comment on above: Performed By: #### L [id number] #### Scientific Helper: RADHA SIMMONS ([id number]) [facility] ([place] [id number] [place] Hematocrit (Bld) [Volume fraction] 39.6 % Low 40.0-52.0 [facility] Comment on above: Performed By: #### L [id number] #### Scientific Helper: RADHA SIMMONS ([id number]) [facility]) [address] [place] [address] Hemoglobin (Bld) [Mass/Vol] 11.3 g/dL Low 13.0-18.0 [facility] Comment on above: Performed By: #### L [id number] #### Scientific Helper: RADHA SIMMONS ([id number]) [facility] ([facility]) [address] [place] [address] MCH (RBC) [Entitic mass] 23.7 pg Low 26.0-34.0 [facility] Comment on above: Performed By: #### L AB294 #### Scientific Helper: RADHA SIMMONS ([id number]) [facility]) [address] [place] [address] MCHC 28.5 % Low 30.5-36.0 [facility] Comment on above: Performed By: #### L AB294 #### Scientific Helper: RADHA SIMMONS ([id number]) [facility] ([facility]) [address] [place] [address] MCV (RBC) [Entitic vol] 83.2 fL Normal 77.0-99.0 [facility] Comment on above: Performed By: #### L AB294 #### Scientific Helper: RADHA SIMMONS ([id number]) [facility] ([facility]) [address] [place] [address] Platelet mean volume (Bld) [Entitic vol] 9.5 fL Normal 9.0-12.7 [facility] Comment on above: Performed By: #### L AB294 #### Scientific Helper: RADHA SIMMONS ([id number]) [facility] ([facility]) [address] [place] [address] Platelets (Bld) [#/Vol] 201 10*3/uL Normal 140-440 [facility] Comment on above: Performed By: #### L [id number] #### Scientific Helper: RADHA SIMMONS ([id number]) [facility]) [address] [place] [address] RBC (Bld) [#/Vol] 4.76 10*6/uL Normal 4.40-5.90 [facility] Comment on above: Performed By: #### L AB294 #### Scientific Helper: RADHA SIMMONS ([id number]) [facility] ([facility]) [address] [place] [address] WBC (Bld) [#/Vol] 8.3 10*3/uL Normal 3.6-10.7 [facility] Comment on above: Performed By: #### L AB294 #### Scientific Helper: RADHA SIMMONS ([id number]) [facility] ([facility]) [address] [place] [address] CBC panel Auto (Bld)Ordered By: Eduin Brar on 10-04-2023 Erythrocyte distribution width (RBC) [Ratio] 17.9 % High 11.5 - 15.0 % [facility] Hematocrit (Bld) [Volume fraction] 39.6 % Low 40.0 - 52.0 % [facility] Hemoglobin (Bld) [Mass/Vol] 11.3 g/dL Low 13.0 - 18.0 g/dL [facility] Interpretation and review of laboratory results Abnormal [facility] MCH (RBC) [Entitic mass] 23.7 pg Low 26.0 - 34.0 pg [facility] MCHC (RBC) [Mass/Vol] 28.5 % Low 30.5 - 36.0 % [facility] MCV (RBC) [Entitic vol] 83.2 fL 77.0 - 99.0 fL [facility] [employer] Platelet mean volume (Bld) [Entitic vol] 9.5 fL 9.0 - 12.7 fL [facility] [employer] Platelets (Bld) [#/Vol] 201 10*3/uL 140 - 440 10*3/uL [facility] RBC (Bld) [#/Vol] 4.76 10*6/uL 4.40 - 5.90 10*6/uL [facility] WBC (Bld) [#/Vol] 8.3 10*3/uL 3.6 - 10.7 10*3/uL [facility] Consulton 10-04-2023 Consult Inpatient consult to Endovascular Neurology-- Consult performed by: Mey Loya APRN - [employer] Consult ordered by: Raphael Stone MD Reason for consult: vertebbral artery occlusion/ stenosis History Of Present Illness Krunal Leos is a 58 y.o. male presenting with left face and hand weakness in setting of chronic dizziness. Pt does have history of atrial fibrillation on Eliquis. Pt reports [facility] episodic room spinning with diaphoresis that lasts [...] and symmetric in all four extremities. Coordination Hhkdmy-pa-inix, rapid alternating movements and [id number]-[id number]-djcv normal bilaterally without dysmetria. Awake and alert [...] (more content not included)... Normal [facility] Consult INITIAL CONSULT NOTE . STROKE SERVICE Patient Name: Krunal Leos Patient : 1965 Acct: [id number] Date of Admission: 10/03/2023 Room/Bed: [facility] A PCP: RADHA KHAN History of Present Ilness: 58 y.o. is man with the chief Complaint of: transferred from [place] for further evaluation of severe cerebrovascular disease [...] EC tablet 40 mg, 40 mg, Oral, [facility], Michael Rico MD, 40 mg at [...] place Me (more content not included)... Normal [facility] Consult ----- ----- Attestation signed by Suzy [...] of Eliquis last night - [place] [facility] [place] [place] - further [...] ?F) SpO2: (more content not included)... Normal [facility] HEMOGLOBIN A1Con 10-04-2023 Glucose [Mass/Vol] 177 mg/dL Normal [facility] Comment on above: Performed By: #### L AB90 ####Scientific Helper: RADHA SIMMONS ([id number])[address] HbA1c (Bld) [Mass fraction] 7.8 % High <5.7 [facility] Comment on above: Result Comment: Norm al less than 5.7% Prediabetes 5.7% to 6.4% Diabetes 6.5% or higher --HgbA1C levels may not be accurate in patients who have renal disease, received recent blood transfusions, are anemic, or who have dyshemoglobinemia. Performed By: #### L AB90 ####Scientific Helper: RADHA SIMMONS ([id number])[facility])[address] [place] [address] LIPID PANELon 10-04-2023 Cholesterol [Mass/Vol] 147 mg/dL Normal <200 [facility] Comment on above: Performed By: #### L AB747, LAB18 ####Scientific Helper: RADHA SIMMONS ([id number])[address] Cholesterol in HDL [Mass/Vol] 27 mg/dL Low 40-60 [facility] Comment on above: Performed By: #### L AB747, LAB18 ####Scientific Helper: RADHA SIMMONS ([id number])[address] Cholesterol.total/Arsenio sterol in HDL [Mass ratio] 5 {ratio} Normal [facility] Comment on above: Result Comment: Ref Range: < 3 Low Risk for CHD 3-6 Mod Risk for CHD > 6 High Risk for CHD Performed By: #### L [id number], LAB18 ####Scientific Helper: RADHA SIMMONS ([id number])[facility] ([facility])[address] [place] [address] LOW DENSITY LIPOPROTEIN 41 mg/dL Normal 0-<100 [facility] Comment on above: Performed By: #### L [id number], LAB18 ####Scientific Helper: RADHA SIMMONS ([phone])[facility] ([facility])[address] [place] [address] Triglyceride [Mass/Vol] 397 mg/dL High <150 [facility] Comment on above: Performed By: #### L [id number], LAB18 ####Scientific Helper: RADHA SIMMONS ([phone])[facility] ([facility])[address] [place] [address] Laboratory - Chemistry and C hemistry - challengeon 10-04-2023 Glucose [Mass/Vol] 221 mg/dL High 70 - 100 mg/dL [facility] Glucose [Mass/Vol] 157 mg/dL High 70 - 100 mg/dL [facility] Troponin I.cardiac [Mass/Vol] ng/mL [facility] ng/mL [facility] Glucose [Mass/Vol] 162 mg/dL High 70 - 100 mg/dL [facility] Troponin I.cardiac [Mass/Vol] ng/mL [facility] - 0.034 ng/mL [facility] Glucose [Mass/Vol] 193 mg/dL High 70 - 100 mg/dL [facility] Average glucose Estimated from glycated hemoglobin (Bld) [Mass/Vol] 177 mg/dL [facility] Laboratory - Coagulationon 0 10-04-2023 aPTT Coag (PPP) [Time] 27.3 s 20.0 - 30.5 s [facility] INR Coag (PPP) [Relative time] 1.0 {INR} 0.9 - 1.1 [facility] Comment on above: Recommended Anticoag ulant [...] 10.9 s 9.0 - 1 2.0 s [facility] Laboratory - Hematology and Cell countson 10-04-2023 HbA1c (Bld) [Mass fraction] 7.8 % High NINF - 5.7 % [facility] Comment on above: Normal less than 5.7 % Prediabetes 5.7% to 6.4% Diabetes 6.5% or higher --HgbA1C levels may not be accurate in patients who have renal disease, received recent blood transfusions, are anemic, or who have dyshemoglobinemia. Lipid 1996 panelon 4 Cholesterol [Mass/Vol] 147 mg/dL NINF - 200 mg/dL [facility] [employer] Cholesterol in HDL [Mass/Vol] 27 mg/dL Low 40 - 60 mg/dL [facility] [employer] Cholesterol in LDL [Mass/Vol] 41 mg/dL 0 - <100 [facility] [employer] Cholesterol.total/Arsenio sterol in HDL [Mass ratio] 5 {ratio} [facility] [employer] Comment on above: Ref Range: < 3 Low Risk for CHD 3-6 Mod Risk for CHD > 6 High Risk for CHD Interpretation and review of laboratory results Abnormal [facility] Triglyceride [Mass/Vol] 397 mg/dL High NINF - 150 mg/dL [facility] [employer] No Panel Informationon 10-03 Interpretation and review of laboratory results Abnormal [facility] [employer] Performed by: [facility] [employer] [facility], [address] [place], [place] [id number] CLIA ID: [id number] [facility] [employer] [facility] [employer] Interpretation and review of laboratory results Abnormal [facility] [employer] Performed by: [facility], [address] [place] [id number] CLIA ID: [id number] [facility] [employer] [facility] Interpretation and review of laboratory results Normal [facility] Addendum by Analia Zamudio MD [...] and heterogeneous plaque. Subclavian has turbulent flow. Licensed Embalmer Details A carvalho scale, color Doppler imaging and spectral Doppler analysis ultrasound was performed. During the study longitudinal and transverse views were obtained. Pulsed wave doppler was performed. The exam was performed with the patient in the supine position. Overall the study quality was adequate. Study was technically difficult due to: acoustic shadowing and body habitus. [facility] Interpretation and review of laboratory results Abnormal [facility] Performed by: [facility], [address] [place] [address] CLIA ID: [id number] [facility] Interpretation and review of laboratory results Abnormal [facility] Performed by: [facility], [address] [place] [address] CLIA ID: [id number] [facility] Interpretation and review of laboratory results Abnormal [facility] No Panel InformationOrdered By: Analia Zamudio on 10-04-2023 Left CCA dist EDV 36.3 cm/s [facility] Work Phone: Left CCA dist PSV 252.1 cm/s [facility] Work Phone: Left CCA mid EDV 40.30 cm/s [facility] Work Phone: Left CCA mid PSV 257.50 [...] Phone: Right ICA dist EDV 24.7 cm/s [facility] Work Phone: [phone] Right ICA dist PSV 78.9 cm/s [facility] Work Phone: [phone] Right ICA mid EDV 30.1 cm/s [facility]lt[facility] Work Phone: [phone] Right ICA mid PSV 97.5 cm/s [facility] Naked ealtTexas [facility] Work Phone: [phone] Right ICA prox EDV 16.0 cm/s [facility] Work Phone: [phone] Right ICA prox PSV 74.3 cm/s [employer] Work Phone: [phone] Right ICA/CCA PSV 0.90 [facility] Work Phone: [phone] Right subclavian mid EDV 9.7 cm/s [facility] Work Phone: [phone] Right subclavian mid PSV 66.0 cm/s [facility] Work Phone: [phone] Right vertebral EDV 12.00 cm/s [facility] Work Phone: [phone] Right vertebral PSV 47.5 cm/s [facility] Work Phone: [phone] PROTIME AND APTTon 4 aPTT Coag (Bld) [Time] 27.3 s Normal 20.0-30.5 [facility] Comment on above: Performed By: #### L [id number] ####Scientific Helper: RADHA SIMMONS ([id number])[address] INR Coag (PPP) [Relative time] 1.0 {INR} Normal 0.9-1.1 [facility] Comment on above: Result Comment: Luciano mmended [...] prevent Myocardial Infarction Performed By: #### L [id number] ####Scientific Helper: RADHA SIMMONS ([id number])[facility])[address] [place] [address] PT Coag (PPP) [Time] 10.9 s Normal 9.0-12.0 [facility] Comment on above: Performed By: #### L [id number] ####Scientific Helper: RADHA SIMMONS ([id number])[facility] ([facility])[address] [place] [address] [place] TROPONIN Ion 10-04-2023 Troponin I.cardiac [Mass/Vol] ng/mL Normal <0.034 [facility] Comment on above: Result Comment: DAPHNE Lagn COMMENTS: Patients with high levels of Biotin oral intake (ie >5 mg/day) may have falsely decreased Troponin levels. Performed By: #### L [id number], LAB18 ####Scientific Helper: RADHA SIMMONS ([id number])[address] TROPONIN, WITH SERIAL REFLEX on 10-04-2023 Troponin I.cardiac [Mass/Vol] ng/mL Normal <0.034 [facility] Comment on above: Result Comment: DAPHNE Lang COMMENTS: Patients with high levels of Biotin oral intake (ie >5 mg/day) may have falsely decreased Troponin levels. Performed By: #### L [id number] ####Scientific Helper: RADHA SIMMONS ([id number])[facility])[address] [place] [address] Troponin I.cardiac [Mass/Vol ]on 10-04-2023 Interpretation and review of laboratory results Normal [facility] Patients with high l evels of Biotin oral intake (ie >5 mg/day) may have falsely decreased Troponin levels. [facility] Interpretation and review of laboratory results Normal [facility] Patients with high l evels of Biotin oral intake (ie >5 mg/day) may have falsely decreased Troponin levels. [facility] .Auto Diffon 10-03-2023 Basophil, Absolute 0.1 10 3/mcL Normal 0.0-0.2 [facility] ([place]) Comment on above: Performed By: #### M G, GFR, ADIFF, ANEU, CBC, CMP ####[address] [place], [place] [address] Basophils/100 WBC (Bld) 1.0 % Normal 0.0-2.5 A [facility] ([place]) Comment on above: Performed By: #### M G, GFR, ADIFF, ANEU, CBC, CMP ####[address] [place], [place] [address] Eosinophil, Absolute 0.4 10 3/mcL Normal 0.0-0.4 [facility] ([place]) Comment on above: Performed By: #### M G, GFR, ADIFF, ANEU, CBC, CMP ####[address] [place], [place] [address] Eosinophils/100 WBC (Bld) 5.1 % Normal 0.0-7.0 [facility] ([place] Comment on above: Performed By: #### M G, GFR, ADIFF, ANEU, CBC, CMP ####[address] [place], [place] [address] Lymphocyte, Absolute 1.6 10 3/mcL Normal 0.8-3.9 [facility] ([place]) Comment on above: Performed By: #### M G, GFR, ADIFF, ANEU, CBC, CMP ####[address] [place], [place] [address] Lymphocytes/100 WBC (Bld) 20.4 % Normal 10.0-50.0 [facility] ([place]) Comment on above: Performed By: #### M G, GFR, ADIFF, ANEU, CBC, CMP ####[address] [place], [place] [address] Monocyte, Absolute 0.9 10 3/mcL Normal 0.2-1.0 [facility] ([place] Comment on above: Performed By: #### M G, GFR, ADIFF, ANEU, CBC, CMP ####[address] [place], [place] [address] Monocytes/100 WBC (Bld) 11.5 % Normal 1.7-13.0 A [facility] ([place] Comment on above: Performed By: #### M G, GFR, ADIFF, ANEU, CBC, CMP ####[address] [place], [place] [address] Neutrophils/100 WBC (Bld) 62.0 % Normal 37.0-80.0 [facility] ([place] Comment on above: Performed By: #### M G, GFR, ADIFF, ANEU, CBC, CMP ####J[address]red [address] [place], [place] [address] .GFRon 10-03-2023 GFR Non- 72 ml/min/1.73sqm Normal [facility] ([place] Comment on above: Result Comment: GFR Population [...] G, GFR, ADIFF, ANEU, CBC, CMP ####[address] [place], [place] [address] GFR 87 ml/min/1.73sqm Normal [facility] ([place] Comment on above: Result Comment: GFR Population [...] GFR, ADIFF, ANEU, CBC, CMP ####J[address] [place], [place] [address] .NEUABSon 10-03-2023 Neutrophil, Absolute 4.7 10 3/mcL Normal 2.9-6.2 [facility] ([place]) Comment on above: Performed By: #### M G, GFR, ADIFF, ANEU, CBC, CMP ####[address] [place], [place] [address] CBCon 10-03-2023 Erythrocyte distribution width (RBC) [Ratio] 18.3 % High 11.5-14.5 [facility] ([place] Comment on above: Performed By: #### M G, GFR, ADIFF, ANEU, CBC, CMP ####[address] [place], [place] [address] Hematocrit (Bld) [Volume fraction] 32.0 % Low 42.0-52.0 [facility] ([place] Comment on above: Performed By: #### M G, GFR, ADIFF, ANEU, CBC, CMP ####[address] [place], [place] [address] Hgb 10.5 G/dL Low 14.0-18.0 [facility] ([place] Comment on above: Performed By: #### M G, GFR, ADIFF, ANEU, CBC, CMP ####[address] [place], [place] [address] MCH (RBC) [Entitic mass] 24.5 pg Low 27.0-31.2 [facility] ([place] Comment on above: Performed By: #### M G, GFR, ADIFF, ANEU, CBC, CMP ####[address] [place], [place] [address] MCHC 32.9 G/dL Normal 31.8-35.4 [facility] [place] Comment on above: Performed By: #### M G, GFR, ADIFF, ANEU, CBC, CMP ####[address] [place], [place] [address] MCV (RBC) [Entitic vol] 74.3 fL Low 80.0-94.0 A [facility] ([place] Comment on above: Performed By: #### M G, GFR, ADIFF, ANEU, CBC, CMP ####[address] [place], [place] [address] Platelet 211 10 3/mcL Normal 130-400 [facility] ([place] Comment on above: Performed By: #### M G, GFR, ADIFF, ANEU, CBC, CMP ####[address] [place], [place] [address] Platelet mean volume (Bld) [Entitic vol] 7.6 fL Normal 7.4-10.4 [facility] ([place] Comment on above: Performed By: #### M G, GFR, ADIFF, ANEU, CBC, CMP ####[address] [place], [place] [address] RBC 4.31 10 6/mcL Normal 4.04-6.13 [facility] [place] Comment on above: Performed By: #### M G, GFR, ADIFF, ANEU, CBC, CMP ####[address] [place], [place] [address] WBC 7.6 10 3/mcL Normal 4.6-10.8 [facility] ([place] Comment on above: Performed By: #### Savannah G, GFR, ADIFF, ANEU, CBC, CMP ####[address] [place], [place] [address] CMPon 10-03-2023 Albumin Level 3.1 G/dL Low 3.4-4.8 [facility] ([place] Comment on above: Performed By: #### M G, GFR, ADIFF, ANEU, CBC, CMP ####[address] [place], [place] [address] Albumin/Globulin [Mass ratio] 0.8 {ratio} Low 1.1-2.5 [facility] ([place] Comment on above: Performed By: #### M G, GFR, ADIFF, ANEU, CBC, CMP ####[address] [place], [place] [address] ALP [Catalytic activity/Vol] 93 U/L Normal 40-135 [facility] ([place] Comment on above: Performed By: #### M G, GFR, ADIFF, ANEU, CBC, CMP ####[address] [place], [place] [address] ALT [Catalytic activity/Vol] 20 U/L Normal 16-63 [facility] ([place] Comment on above: Performed By: #### M G, GFR, ADIFF, ANEU, CBC, CMP ####[address] [place], [place] [address] AST [Catalytic activity/Vol] 15 U/L Normal 10-40 [facility] ([place] Comment on above: Performed By: #### M G, GFR, ADIFF, ANEU, CBC, CMP ####[address] [place], [place] [address] Bili Total 0.5 mg/dL Normal 0.2-1.0 [facility] ([place] Comment on above: Result Comment: Use of this assay is not recommended for patients undergoing treatment with eltrombopag due to the potential for falsely elevated results. Performed By: #### M G, GFR, ADIFF, ANEU, CBC, CMP ####[address] [place], [place] [address] BUN/Creatinine Ratio 17 ratio Normal 7-27 [facility] ([place]) Comment on above: Performed By: #### M G, GFR, ADIFF, ANEU, CBC, CMP ####[address] [place], [place] [address] Calcium [Mass/Vol] 8.9 mg/dL Normal 8.4-10.2 [facility] ([place]) Comment on above: Performed By: #### M G, GFR, ADIFF, ANEU, CBC, CMP ####[address] [place], [place] [address] Chloride [Moles/Vol] 104 mmol/L Normal 98-107 [facility] ([place] Comment on above: Performed By: #### M G, GFR, ADIFF, ANEU, CBC, CMP ####[address] [place], [place] [address] CO2 [Moles/Vol] 27 mmol/L Normal 23-31 [facility] ([place] Comment on above: Performed By: #### M G, GFR, ADIFF, ANEU, CBC, CMP ####[address] [place], [place] [address] Creatinine [Mass/Vol] 1.05 mg/dL Normal 0.70-1.30 [facility] ([place]) Comment on above: Performed By: #### M G, GFR, ADIFF, ANEU, CBC, CMP ####[address] [place], [place] [address] Electrolyte Balance 7.0 mEq/L Normal 4.0-15.0 [facility] ([place]) Comment on above: Performed By: #### M G, GFR, ADIFF, ANEU, CBC, CMP ####[address] [place], [place] [address] Globulin 3.9 G/dL Normal [facility] ([place] Comment on above: Performed By: #### M G, GFR, ADIFF, ANEU, CBC, CMP ####[address] [place], [place] [address] Glucose [Mass/Vol] 158 mg/dL High 80-115 [facility] ([place]) Comment on above: Performed By: #### M G, GFR, ADIFF, ANEU, CBC, CMP ####[address] [place], [place] [address] Potassium [Moles/Vol] 4.5 mmol/L Normal 3.5-5.1 [facility] ([place] Comment on above: Performed By: #### M G, GFR, ADIFF, ANEU, CBC, CMP ####[address] [place], [place] [address] Sodium [Moles/Vol] 138 mmol/L Normal 136-145 [facility] ([place]) Comment on above: Performed By: #### M G, GFR, ADIFF, ANEU, CBC, CMP ####[address] [place], [place] [address] Total Protein 7.0 G/dL Normal 6.4-8.2 [facility] ([place] Comment on above: Performed By: #### M G, GFR, ADIFF, ANEU, CBC, CMP ####J[address] [place], [place] [address] Urea nitrogen [Mass/Vol] 18 mg/dL Normal 7-18 [facility] ([place] Comment on above: Performed By: #### M G, GFR, ADIFF, ANEU, CBC, CMP ####[address] [place], [place] [address] CT ANGIOGRAPHY HEAD W/ CONTR Arpit 10-03-2023 [...] 10/03/2023 10:41:49 AM Ordering Provider: ABDULLAHI AGUIRRE [facility] ([place]) CT ANGIOGRAPHY NECK W/CONTRA Kassidy 10-03-2023 CT [...] 10/03/2023 10:41:06 AM Ordering Provider: ABDULLAHI AGUIRRE [facility] ([place] CT HEAD OR BRAIN W/O CONTRAS Ton [...] 10/01/2023 11:46:49 PM Ordering Provider: TITA Echevarria [facility] ([place]) LABORATORYOrdered By: Kwasi Rob on 10-03-2023 Blood Glucose Testing Reason Routine (10/03/23 4:43 PM) [facility] Work Phone: Glucose [Mass/Vol] 267 mg/dL High 82 - 115 mg/dL [facility] Work Phone: Blood Glucose Testing Reason Routine (10/03/23 11:39 AM) [facility] Work Phone: Glucose [Mass/Vol] 210 mg/dL High 82 - 115 mg/dL [facility] Work Phone: Blood Glucose Testing Reason Routine (10/03/23 7:58 AM) [facility] Work Phone: Glucose [Mass/Vol] 214 mg/dL High 82 - 115 mg/dL [facility] Work Phone: LABORATORYOrdered By: SYSTEM SYSTEM on [...] [Mass/Vol] 2.0 mg/dL Normal 1.8-2.4 [facility] ([place]) Comment on above: Performed By: #### M G, GFR, ADIFF, ANEU, CBC, CMP ####J[address] [place], [place] [address] Nursing Noteon 10-03-2023 Nursing Note Pt arrived from [facility], ambulated to bed, NIH scale 1, pt A&O x 4, denies numbness or tingling, denies headache or dizziness, denies needs at this time, call light and belongings within reach, will monitor. Normal [facility] [employer] [facility] .Auto DiffOrdered By: SYSTEM SYSTEM on 10-02-2023 Basophil, Absolute 0.1 103/mcL Normal 0.0-0.2 AO Wo rkflow SS Comment on above: Performed By: #### C BC, ADIFF, MG, GFR, ANEU, CMP ####[address] [place], [place] [address] Basophils/100 WBC (Bld) 1.0 % Normal 0.0-2.5 A O Workflow SS Comment on above: Performed By: #### C BC, ADIFF, MG, GFR, ANEU, CMP ####[address] [place], [place] [address] Eosinophil, Absolute 0.3 103/mcL Normal 0.0-0.4 AO Workflow SS Comment on above: Performed By: #### C BC, ADIFF, MG, GFR, ANEU, CMP ####[address] [place], [place] [address] Eosinophils/100 WBC (Bld) 3.8 % Normal 0.0-7.0 AO Workflow SS Comment on above: Performed By: #### C BC, ADIFF, MG, GFR, ANEU, CMP ####[address] [place], [place] [address] Lymphocyte, Absolute 1.6 103/mcL Normal 0.8-3.9 AO Workflow SS Comment on above: Performed By: #### C BC, ADIFF, MG, GFR, ANEU, CMP ####[address] [place], [place] [address] Lymphocytes/100 WBC (Bld) 23.2 % Normal 10.0-50.0 AO Workflow SS Comment on above: Performed By: #### C BC, ADIFF, MG, GFR, ANEU, CMP ####[address] [place], [place] [address] Monocyte, Absolute 0.7 103/mcL Normal 0.2-1.0 AO Wo rkflow SS Comment on above: Performed By: #### C BC, ADIFF, MG, GFR, ANEU, CMP ####[address] [place], [place] [address] Monocytes/100 WBC (Bld) 9.7 % Normal 1.7-13.0 A O Workflow SS Comment on above: Performed By: #### C BC, ADIFF, MG, GFR, ANEU, CMP ####[address] [place], [place] [address] Neutrophils/100 WBC (Bld) 62.3 % Normal 37.0-80.0 AO Workflow SS Comment on above: Performed By: #### C BC, ADIFF, MG, GFR, ANEU, CMP ####[address] [place], [place] [address] .GFRon 10-02-2023 GFR 76 ml/min/1.73sqm Normal [facility] ([place] Comment on above: Result Comment: GFR Population [...] ADIFF, MG, GFR, ANEU, CMP ####[address] [place], [place] [address] GFR Non- 63 ml/min/1.73sqm Normal [facility] ([place]) Comment on above: Result Comment: GFR Population [...] BC, ADIFF, MG, GFR, ANEU, CMP ####J[address] [place], [place] [address] .NEUABSOrdered By: SYSTEM SY STEM on 10-02-2023 Neutrophil, Absolute 4.4 103/mcL Normal 2.9-6.2 AO Workflow SS Comment on above: Performed By: #### C BC, ADIFF, MG, GFR, ANEU, CMP ####[address] [place], [place] [address] A1Con 10-02-2023 HbA1c (Bld) [Mass fraction] 7.7 % High 4.3-6.4 [facility] ([place] Comment on above: Performed By: #### F T4, LIPID, A1C, TSH #### [address] [address] CBCOrdered By: SYSTEM SYSTEM on 10-02-2023 Erythrocyte distribution width (RBC) [Ratio] 18.7 % High 11.5-14.5 AO Workflow SS Comment on above: Performed By: #### C BC, ADIFF, MG, GFR, ANEU, CMP ####[address] [place], [place] [address] Hematocrit (Bld) [Volume fraction] 33.0 % Low 42.0-52.0 AO Workflow SS Comment on above: Performed By: #### C BC, ADIFF, MG, GFR, ANEU, CMP ####[address] [place], [place] [address] MCH (RBC) [Entitic mass] 24.6 pg Low 27.0-31.2 AO Workflow SS Comment on above: Performed By: #### C BC, ADIFF, MG, GFR, ANEU, CMP ####[address] [place], [place] [address] MCHC 32.8 G/dL Normal 31.8-35.4 AO Workflow SS Comment on above: Performed By: #### C BC, ADIFF, MG, GFR, ANEU, CMP ####[address] [place], [place] [address] MCV (RBC) [Entitic vol] 75.0 fL Low 80.0-94.0 A O Workflow SS Comment on above: Performed By: #### C BC, ADIFF, MG, GFR, ANEU, CMP ####[address] [place], [place] [address] Platelet mean volume (Bld) [Entitic vol] 7.5 fL Normal 7.4-10.4 AO Workflow SS Comment on above: Performed By: #### C BC, ADIFF, MG, GFR, ANEU, CMP ####J[address] [place], [place] [address] CBCon 10-02-2023 Hgb 10.8 G/dL Low 14.0-18.0 [facility] ([place] Comment on above: Performed By: #### C BC, ADIFF, MG, GFR, ANEU, CMP ####J[address] [place], [place] [address] Platelet 220 10 3/mcL Normal 130-400 [facility] ([place] Comment on above: Performed By: #### C BC, ADIFF, MG, GFR, ANEU, CMP ####J[address] [place], [place] [address] RBC 4.40 10 6/mcL Normal 4.04-6.13 [facility] ([place] Comment on above: Performed By: #### C BC, ADIFF, MG, GFR, ANEU, CMP ####J[address] [place], [place] [address] WBC 7.0 10 3/mcL Normal 4.6-10.8 [facility] ([place] Comment on above: Performed By: #### C BC, ADIFF, MG, GFR, ANEU, CMP ####J[address] [place], [place] [address] CMPon 10-02-2023 Albumin Level 3.2 G/dL Low 3.4-4.8 [facility] ([place] Comment on above: Performed By: #### C BC, ADIFF, MG, GFR, ANEU, CMP ####J[address] [place], [place] [address] ALT [Catalytic activity/Vol] 25 U/L Normal 16-63 [facility] ([place] Comment on above: Performed By: #### C BC, ADIFF, MG, GFR, ANEU, CMP ####[address] [place], [place] [address] AST [Catalytic activity/Vol] 17 U/L Normal 10-40 [facility] ([place] Comment on above: Performed By: #### C BC, ADIFF, MG, GFR, ANEU, CMP ####J[address] [place], [place] [address] Bili Total 0.4 mg/dL Normal 0.2-1.0 [facility] ([place] Comment on above: Result Comment: Use of this assay is not recommended for patients undergoing treatment with eltrombopag due to the potential for falsely elevated results. Performed By: #### C BC, ADIFF, MG, GFR, ANEU, CMP ####[address] [place], [place] [address] BUN/Creatinine Ratio 21 ratio Normal 7-27 [facility]) Comment on above: Performed By: #### C BC, ADIFF, MG, GFR, ANEU, CMP ####[address] [place], [place] [address] Total Protein 7.3 G/dL Normal 6.4-8.2 [facility] ([place] Comment on above: Performed By: #### C BC, ADIFF, MG, GFR, ANEU, CMP ####J[address] [place], [place] [address] CMPOrdered By: SYSTEM SYSTEM on 10-02-2023 Albumin/Globulin [Mass ratio] 0.8 {ratio} Low 1.1-2.5 AO ADM SS Comment on above: Performed By: #### C BC, ADIFF, MG, GFR, ANEU, CMP ####[address] [place], [place] [address] ALP [Catalytic activity/Vol] 99 U/L Normal 40-135 AO ADM SS Comment on above: Performed By: #### C BC, ADIFF, MG, GFR, ANEU, CMP ####J[address] [place], [place] [address] Calcium [Mass/Vol] 8.8 mg/dL Normal 8.4-10.2 AO ADM SS Comment on above: Performed By: #### C BC, ADIFF, MG, GFR, ANEU, CMP ####[address] [place], [place] [address] Chloride [Moles/Vol] 105 mmol/L Normal 98-107 AO A DM SS Comment on above: Performed By: #### C BC, ADIFF, MG, GFR, ANEU, CMP ####[address] [place], [place] [address] CO2 [Moles/Vol] 24 mmol/L Normal 23-31 AO ADM SS Comment on above: Performed By: #### C BC, ADIFF, MG, GFR, ANEU, CMP ####Jarred [address] [place], [place] [address] Creatinine [Mass/Vol] 1.18 mg/dL Normal 0.70-1.30 AO ADM SS Comment on above: Performed By: #### C BC, ADIFF, MG, GFR, ANEU, CMP ####Jarred [address] [place], [place] [address] Electrolyte Balance 11.0 mEq/L Normal 4.0-15.0 AO AD M SS Comment on above: Performed By: #### C BC, ADIFF, MG, GFR, ANEU, CMP ####J[address]red [address] [place], [place] [address] Globulin 4.1 G/dL Normal AO ADM SS Comment on above: Performed By: #### C BC, ADIFF, MG, GFR, ANEU, CMP ####[address] [place], [place] [address] Glucose [Mass/Vol] 80 mg/dL Normal 80-115 AO ADM SS Comment on above: Performed By: #### C BC, ADIFF, MG, GFR, ANEU, CMP ####Jarred [address] [place], [place] [address] Potassium [Moles/Vol] 3.9 mmol/L Normal 3.5-5.1 AO ADM SS Comment on above: Performed By: #### C BC, ADIFF, MG, GFR, ANEU, CMP ####Jarred [address] [place], [place] [address] Sodium [Moles/Vol] 140 mmol/L Normal 136-145 AO ADM SS Comment on above: Performed By: #### C BC, ADIFF, MG, GFR, ANEU, CMP ####[address] [address] Urea nitrogen [Mass/Vol] 25 mg/dL High 7-18 AO ADM SS Comment on above: Performed By: #### C BC, ADIFF, MG, GFR, ANEU, CMP ####[address] [place], [place] [address] FT4on 10-02-2023 Free T4 [Mass/Vol] 0.99 ng/dL Normal 0.76-1.46 [facility] ([place]) Comment on above: Performed By: #### F T4, LIPID, A1C, TSH #### [address] [place], [place] [address] LABORATORYOrdered By: SYSTEM SYSTEM on 10-02-2023 Albumin [...] 10-02-2023 Cholesterol [Mass/Vol] 182 mg/dL Normal 0-200 [facility] ([place]) Comment on above: Result Comment: Chol esterol Reference Interval: Less than 200 Desirable 200-239 Borderline high risk 240 and above High risk Performed By: #### F T4, LIPID, A1C, TSH #### Jarred [address] [address] Cholesterol in HDL [Mass/Vol] 37 mg/dL Low 40-60 [facility] ([place]) Comment on above: Performed By: #### F T4, LIPID, A1C, TSH #### Jarred [address] [address] Cholesterol in LDL [Mass/Vol] 80 mg/dL Normal 0-130 [facility] ([place]) Comment on above: Performed By: #### F T4, LIPID, A1C, TSH #### Jarred [address] [address] Triglyceride [Mass/Vol] 323 mg/dL High 0-150 A [facility] ([place]) Comment on above: Result Comment: Trig lyceride Reference Interval: Less than 150 Normal 150-199 Borderline high risk 200-499 High risk 500 or higher Very high risk Performed By: #### F T4, LIPID, A1C, TSH #### Jarred [address] [address] MGOrdered By: SYSTEM SYSTEM on 10-02-2023 Magnesium [Mass/Vol] 1.9 mg/dL Normal 1.8-2.4 AO A DM SS Comment on above: Performed By: #### C BC, ADIFF, MG, GFR, ANEU, CMP ####Jarred [address] [place], [place] [address] MRI BRAIN W/O CONTRASTon MRI BRAIN W/O [...] 10/02/2023 8:38:30 AM Ordering Provider: CHITO Echevarria [facility] ([place]) TSHon 10-02-2023 TSH Qn 3.31 m[IU]/L Normal 0.36-3.74 [facility] ([place]) Comment on above: Performed By: #### F T4, LIPID, A1C, TSH #### [address] [place], [place] [address] .Auto Diffon 10-01-2023 Basophil, Absolute 0.1 10 3/mcL Normal 0.0-0.2 [facility] ([place]) Comment on above: Performed By: #### A JORGE, CMP, ADIFF, TROPHS, CBC, GFR, MDW, MG ####[address] [place], [place] [address] Basophils/100 WBC (Bld) 1.4 % Normal 0.0-2.5 [facility] ([place]) Comment on above: Performed By: #### A JORGE, CMP, ADIFF, TROPHS, CBC, GFR, MDW, MG ####Jarred [address] [place], [place] [address] Eosinophil, Absolute 0.4 10 3/mcL Normal 0.0-0.4 [facility] ([place]) Comment on above: Performed By: #### A JORGE, CMP, ADIFF, TROPHS, CBC, GFR, MDW, MG ####[address] [place], [place] [address] Eosinophils/100 WBC (Bld) 3.7 % Normal 0.0-7.0 [facility] ([place]) Comment on above: Performed By: #### A JORGE, CMP, ADIFF, TROPHS, CBC, GFR, MDW, MG ####[address] [place], [place] [address] Lymphocyte, Absolute 2.5 10 3/mcL Normal 0.8-3.9 [facility] ([place]) Comment on above: Performed By: #### A JORGE, CMP, ADIFF, TROPHS, CBC, GFR, MDW, MG ####[address] [place], [place] [address] Lymphocytes/100 WBC (Bld) 23.6 % Normal 10.0-50.0 [facility] ([place]) Comment on above: Performed By: #### A JORGE, CMP, ADIFF, TROPHS, CBC, GFR, MDW, MG ####[address] [place], [place] [address] Monocyte, Absolute 1.0 10 3/mcL Normal 0.2-1.0 [facility] ([place]) Comment on above: Performed By: #### A JORGE, CMP, ADIFF, TROPHS, CBC, GFR, MDW, MG ####[address] [place], [place] [address] Monocytes/100 WBC (Bld) 9.7 % Normal 1.7-13.0 [facility] ([place]) Comment on above: Performed By: #### A JORGE, CMP, ADIFF, TROPHS, CBC, GFR, MDW, MG ####[address] [place], [place] [address] Neutrophils/100 WBC (Bld) 61.6 % Normal 37.0-80.0 [facility] ([place] Comment on above: Performed By: #### A JORGE, CMP, ADIFF, TROPHS, CBC, GFR, MDW, MG ####Jarred [address] [place], [place] [address] .GFRon 10-01-2023 GFR 59 ml/min/1.73sqm Normal [facility] ([place] Comment on above: Result Comment: GFR Population [...] ADIFF, TROPHS, CBC, GFR, MDW, MG ####Jarred [address] [place], [place] [address] GFR Non- 48 ml/min/1.73sqm Normal [facility] ([place] Comment on above: Result Comment: GFR Population [...] CMP, ADIFF, TROPHS, CBC, GFR, MDW, MG ####[address] [address] .MDWon 10-01-2023 Monocyte Distribution Width 18.06 Normal 0.00-20.00 [facility] ([place] Comment on above: Result Comment: For ED adult patients suspected of sepsis, MDW<=20.0 does not rule out sepsis or risk of sepsis Performed By: #### A JORGE, CMP, ADIFF, TROPHS, CBC, GFR, MDW, MG ####[address] [address] .NEUABSon 10-01-2023 Neutrophil, Absolute 6.5 10 3/mcL High 2.9-6.2 [facility] ([place]) Comment on above: Performed By: #### A JORGE, CMP, ADIFF, TROPHS, CBC, GFR, MDW, MG ####[place] [id number] CBCon 10-01-2023 Erythrocyte distribution width (RBC) [Ratio] 18.8 % High 11.5-14.5 [facility] ([place] Comment on above: Performed By: #### A JORGE, CMP, ADIFF, TROPHS, CBC, GFR, MDW, MG #### [address] [address] Hematocrit (Bld) [Volume fraction] 33.8 % Low 42.0-52.0 [facility] ([place] Comment on above: Performed By: #### A JORGE, CMP, ADIFF, TROPHS, CBC, GFR, MDW, MG #### [address] [address] Hgb 11.0 G/dL Low 14.0-18.0 [facility] ([place] Comment on above: Performed By: #### A JORGE, CMP, ADIFF, TROPHS, CBC, GFR, MDW, MG #### [address] [address] MCH (RBC) [Entitic mass] 24.3 pg Low 27.0-31.2 [facility] ([place] Comment on above: Performed By: #### A JORGE, CMP, ADIFF, TROPHS, CBC, GFR, MDW, MG #### [address] [address] MCHC 32.5 G/dL Normal 31.8-35.4 [facility] ([place] Comment on above: Performed By: #### A JORGE, CMP, ADIFF, TROPHS, CBC, GFR, MDW, MG #### [address] [address] MCV (RBC) [Entitic vol] 74.7 fL Low 80.0-94.0 A [facility] ([place]) Comment on above: Performed By: #### A JORGE, CMP, ADIFF, TROPHS, CBC, GFR, MDW, MG #### [address] [address] Platelet 250 10 3/mcL Normal 130-400 [facility] ([place] Comment on above: Performed By: #### A JORGE, CMP, ADIFF, TROPHS, CBC, GFR, MDW, MG #### [address] [address] Platelet mean volume (Bld) [Entitic vol] 7.7 fL Normal 7.4-10.4 [facility] ([place] Comment on above: Performed By: #### A JORGE, CMP, ADIFF, TROPHS, CBC, GFR, MDW, MG #### [address] [address] RBC 4.52 10 6/mcL Normal 4.04-6.13 [facility] ([place] Comment on above: Performed By: #### A JORGE, CMP, ADIFF, TROPHS, CBC, GFR, MDW, MG #### [address] [address] WBC 10.6 10 3/mcL Normal 4.6-10.8 [facility] ([place] Comment on above: Performed By: #### A JORGE, CMP, ADIFF, TROPHS, CBC, GFR, MDW, MG #### [place] [address] CMPon 10-01-2023 Albumin Level 3.4 G/dL Normal 3.4-4.8 [facility] ([place] Comment on above: Performed By: #### A JORGE, CMP, ADIFF, TROPHS, CBC, GFR, MDW, MG ####Jar[address] [place], [place] [address] Albumin/Globulin [Mass ratio] 0.8 {ratio} Low 1.1-2.5 [facility] ([place] Comment on above: Performed By: #### A JORGE, CMP, ADIFF, TROPHS, CBC, GFR, MDW, MG ####[address] [place], [place] [address] ALP [Catalytic activity/Vol] 97 U/L Normal 40-135 [facility] ([place] Comment on above: Performed By: #### A JORGE, CMP, ADIFF, TROPHS, CBC, GFR, MDW, MG ####[address] [place], [place] [address] ALT [Catalytic activity/Vol] 24 U/L Normal 16-63 [facility] ([place] Comment on above: Performed By: #### A JORGE, CMP, ADIFF, TROPHS, CBC, GFR, MDW, MG ####[address] [place], [place] [address] AST [Catalytic activity/Vol] 19 U/L Normal 10-40 [facility] ([place] Comment on above: Performed By: #### A JORGE, CMP, ADIFF, TROPHS, CBC, GFR, MDW, MG ####Jarred [address] [place], [place] [address] Bili Total 0.5 mg/dL Normal 0.2-1.0 [facility] ([place] Comment on above: Result Comment: Use of this assay is not recommended for patients undergoing treatment with eltrombopag due to the potential for falsely elevated results. Performed By: #### A JORGE, CMP, ADIFF, TROPHS, CBC, GFR, MDW, MG ####[address] [place], [place] [address] BUN/Creatinine Ratio 20 ratio Normal 7-27 [facility] ([place]) Comment on above: Performed By: #### A JORGE, CMP, ADIFF, TROPHS, CBC, GFR, MDW, MG ####J[address] [place], [place] [address] Calcium [Mass/Vol] 8.9 mg/dL Normal 8.4-10.2 [facility] ([place]) Comment on above: Performed By: #### A JORGE, CMP, ADIFF, TROPHS, CBC, GFR, MDW, MG ####J[address] [place], [place] [address] Chloride [Moles/Vol] 104 mmol/L Normal 98-107 [facility] ([place]) Comment on above: Performed By: #### A JORGE, CMP, ADIFF, TROPHS, CBC, GFR, MDW, MG ####Jar[address] [place], [place] [address] CO2 [Moles/Vol] 22 mmol/L Low 23-31 [facility] ([place] Comment on above: Performed By: #### A JORGE, CMP, ADIFF, TROPHS, CBC, GFR, MDW, MG ####[address] [place], [place] [address] Creatinine [Mass/Vol] 1.48 mg/dL High 0.70-1.30 [facility] ([place]) Comment on above: Performed By: #### A JORGE, CMP, ADIFF, TROPHS, CBC, GFR, MDW, MG ####[address] [place], [place] [address] Electrolyte Balance 12.0 mEq/L Normal 4.0-15.0 [facility] ([place]) Comment on above: Performed By: #### A JORGE, CMP, ADIFF, TROPHS, CBC, GFR, MDW, MG ####[address] [place], [place] [address] Globulin 4.3 G/dL Normal [facility] ([place] Comment on above: Performed By: #### A JORGE, CMP, ADIFF, TROPHS, CBC, GFR, MDW, MG ####[address] [place], [place] [address] Glucose [Mass/Vol] 151 mg/dL High 80-115 [facility] ([place] Comment on above: Performed By: #### A JORGE, CMP, ADIFF, TROPHS, CBC, GFR, MDW, MG ####Jar[address] [place], [place] [address] Potassium [Moles/Vol] 4.0 mmol/L Normal 3.5-5.1 [facility] ([place]) Comment on above: Performed By: #### A JORGE, CMP, ADIFF, TROPHS, CBC, GFR, MDW, MG ####[address] [place], [place] [address] Sodium [Moles/Vol] 138 mmol/L Normal 136-145 [facility] ([place] Comment on above: Performed By: #### A JORGE, CMP, ADIFF, TROPHS, CBC, GFR, MDW, MG ####[address] [place], [place] [address] Total Protein 7.7 G/dL Normal 6.4-8.2 [facility] ([place] Comment on above: Performed By: #### A JORGE, CMP, ADIFF, TROPHS, CBC, GFR, MDW, MG ####Jarred [address] [place], [place] [address] Urea nitrogen [Mass/Vol] 30 mg/dL High 7-18 [facility] ([place] Comment on above: Performed By: #### A JORGE, CMP, ADIFF, TROPHS, CBC, GFR, MDW, MG ####Jarred [address] [place], [place] [address] LABORATORYOrdered By: Ronald العراقي on 10-01-2023 Appearance [...] ng/L Male: 0-76 ng/L Testing performed on [email or web address] using a homogeneous sandwich chemiluminescent immunoassay based on [employer] technology. Albumin BCP dye [Mass/Vol] 3.4 G/dL [...] ng/L Male: 0-76 ng/L Testing performed on [email or web address] using a homogeneous sandwich chemiluminescent immunoassay based on [employer] technology. Urea nitrogen [Mass/Vol] 30 mg/dL High 7 - 18 mg/dL AO ADM SS Urea nitrogen/Creatinine [Mass ratio] 20 ratio Normal 7 - 27 ratio AO ADM SS WBC (Bld) [#/Vol] 10.6 103/mcL Normal 4.6 - 10.8 10^3/mcL AO Workflow SS MGon 10-01-2023 Magnesium [Mass/Vol] 1.8 mg/dL Normal 1.8-2.4 [facility] ([place]) Comment on above: Performed By: #### A JORGE, CMP, ADIFF, TROPHS, CBC, GFR, MDW, MG ####Jar[address] [place], [place] [address] TROPHSon 10-01-2023 High Sensitivity Troponin I 9 ng/L Normal 0-76 [facility] ([place] Comment on above: Result Comment: High Sensitive Troponin I Reference Ranges: Female: 0-51 ng/L Male: 0-76 ng/L Testing performed on [employer] using a homogeneous sandwich chemiluminescent immunoassay based on [employer] technology. Performed By: #### T [facility] #### Jar[address] [place], [place] [address] High Sensitivity Troponin I 10 ng/L Normal 0-76 [facility] ([place] Comment on above: Result Comment: High Sensitive Troponin I Reference Ranges: Female: 0-51 ng/L Male: 0-76 ng/L Testing performed on [email or web address] using a homogeneous sandwich chemiluminescent immunoassay based on [employer] technology. Performed By: #### A JORGE, CMP, ADIFF, TROPHS, CBC, GFR, MDW, MG ####[address] [place], [place] [address] UAon 10-01-2023 Color (U) Yellow Normal [facility] ([place] Comment on above: Performed By: #### U A ####[address] [place], [place] [address] Glucose (U) [Mass/Vol] 500 mg/dL Abnormal Negative [facility] ([place]) Comment on above: Performed By: #### U A ####Jarred [address] [place], [place] [address] Ketones Ql (U) Negative Normal Negative [facility] ([place] Comment on above: Performed By: #### U A ####[address] [place], [place] [address] UA Appear Clear Normal Clear [facility] ([place] Comment on above: Performed By: #### U A ####[address] [place], [place] [address] UA Blood Negative Normal Negative [facility] ([place] Comment on above: Performed By: #### U A ####[address] [place], [place] [address] UA Leuk Est Negative Normal Negative [facility] ([place] Comment on above: Performed By: #### U A ####[address] [place], [place] [address] UA Nitrite Negative Normal Negative [facility] ([place] Comment on above: Performed By: #### U A ####[address] [place], [place] [address] UA pH 5.5 Normal 5.0 - 8.0 [facility] ([place] Comment on above: Performed By: #### U A ####Jarred [address] [place], [place] [address] UA Protein Negative Normal Negative [facility] ([place] Comment on above: Performed By: #### U A ####Jarred [address] [place], [place] [address] UA Spec Grav 1.020 Normal 1.015-1.02 5 [facility] ([place] Comment on above: Performed By: #### U A ####[address] [place], [place] [address] UA Specimen Type Void Normal [facility] ([place] Comment on above: Performed By: #### U A ####[address] [place], [place] [address] UA Urobilinogen 0.2 E.U./dL Normal 0.2-1.0 [facility] ([place] Comment on above: Performed By: #### U A ####Jar[address] [place], [place] [address] Urobilinogen (U) [Mass/Vol] Negative Normal Negative [facility] ([place] Comment on above: Performed By: #### U A ####Jarred [address] [place], [place] [address] XR CHEST 1 VIEWon 10-01-2023 XR CHEST [...] 10/01/2023 9:13:56 PM Ordering Provider: TITA Echevarria [facility] ([place]) Bilirubin, Directon 09-26-19 24 Bilirubin.direct [Mass/Vol] 0.12 mg/dL Normal 0.00-0.30 [facility] [place] [facility] Comment on above: Order Comment: Y Performed By: #### L 506.0250, L3300.8000, L500.4100, L501.4700, L503.0105, L3130.0010 ####[facility] [place] [facility] [address] [place], [address] CBC W/Diff, Automatedon 08-31 Absolute Lymph 1.81 X10 3/uL Normal 0.83-4.51 [facility] [place] [facility] Comment on above: Performed By: #### L 100.0100, L500.4050, L501.5200, L501.9520, L506.0400 ####[facility] [place] [facility] [address] [place], [address] Absolute Neut 5.8 X10 3/uL Normal 2.0-7.7 [facility] [place] [facility] Comment on above: Performed By: #### L 100.0100, L500.4050, L501.5200, L501.9520, L506.0400 ####[facility] [place] [facility] [address] [place], [address] Basophils/100 WBC (Bld) 0.6 % Normal 0-1 [facility] Comment on above: Performed By: #### L 100.0100, L500.4050, L501.5200, L501.9520, L506.0400 ####[facility] [place] [facility] [address] [place], [address] Eosinophils/100 WBC (Bld) 3.1 % Normal 0-5 [facility] [place] [facility] Comment on above: Performed By: #### L 100.0100, L500.4050, L501.5200, L501.9520, L506.0400 ####[facility] [place] [facility] [address] [place], [address] Erythrocyte distribution width (RBC) [Ratio] 17.8 % High 11.6-14.6 [facility] [place] [facility] Comment on above: Performed By: #### L 100.0100, L500.4050, L501.5200, L501.9520, L506.0400 ####[facility] [place] [facility] [address] [place], [address] Hematocrit (Bld) [Volume fraction] 35.7 % Low 40-54 [facility] [place] [facility] Comment on above: Performed By: #### L 100.0100, L500.4050, L501.5200, L501.9520, L506.0400 ####[facility] [place] [facility] [address] [place], [address] Hemoglobin (Bld) [Mass/Vol] 10.9 g/dL Low 13.0-16.5 [facility] [place] [facility] Comment on above: Performed By: #### L 100.0100, L500.4050, L501.5200, L501.9520, L506.0400 ####[facility] [place] [facility] [address] [place], [address] IG% 0.300 Normal 0.0-0.9 [facility] [place] [facility] Comment on above: Result Comment: IG% - Immature Granulocytes (promyelocytes, myelocytes andmetamyelocytes) > 1% indicates that a LEFT SHIFT is Present. Performed By: #### L 100.0100, L500.4050, L501.5200, L501.9520, L506.0400 ####[facility] [place] [facility] [address] [place], [address] Lymphocytes/100 WBC (Bld) 20.9 % Normal 19-41 [facility] [place] [facility] Comment on above: Performed By: #### L 100.0100, L500.4050, L501.5200, L501.9520, L506.0400 ####[facility] [place] [facility] [address] [place], [address] MCH (RBC) [Entitic mass] 23.3 pg Low 27.0-32.0 [facility] [place] [facility] Comment on above: Performed By: #### L 100.0100, L500.4050, L501.5200, L501.9520, L506.0400 ####[facility] [place] [facility] [address] [place], [address] MCHC (RBC) [Mass/Vol] 30.5 g/dL Low 32-36 [facility] Comment on above: Performed By: #### L 100.0100, L500.4050, L501.5200, L501.9520, L506.0400 ####[facility] [place] [facility] [address] [place], [address] MCV (RBC) [Entitic vol] 76.4 fL Low 80-94 [facility] Comment on above: Performed By: #### L 100.0100, L500.4050, L501.5200, L501.9520, L506.0400 ####[facility] [place] [facility] [address] [place], [address] Monocytes/100 WBC (Bld) 8.0 % Normal 0-10 [facility] Comment on above: Performed By: #### L 100.0100, L500.4050, L501.5200, L501.9520, L506.0400 ####[facility] [place] [facility] [address] [place], [address] Neutrophils/100 WBC (Bld) 67.1 % Normal 47-70 [facility] [place] [facility] Comment on above: Performed By: #### L 100.0100, L500.4050, L501.5200, L501.9520, L506.0400 ####[facility] [place] [facility] [address] [place], [address] Nucleated RBC (Bld) [#/Vol] 0 10*3/uL Normal 0-5 [facility] [place] [facility] Comment on above: Performed By: #### L 100.0100, L500.4050, L501.5200, L501.9520, L506.0400 ####[facility] [place] [facility] [address] [place], [address] Platelet mean volume (Bld) [Entitic vol] 10.1 fL Normal 6.2-12.0 [facility] [place] [facility] Comment on above: Performed By: #### L 100.0100, L500.4050, L501.5200, L501.9520, L506.0400 ####[facility] [place] [facility] [address] [place], [address] Platelets (Bld) [#/Vol] 252 10*3/uL Normal 150-450 [facility] [place] [facility] Comment on above: Performed By: #### L 100.0100, L500.4050, L501.5200, L501.9520, L506.0400 ####[facility] [place] [facility] [address] [place], [address] RBC (Bld) [#/Vol] 4.67 10*6/uL Normal 4.6-6.2 [facility] Comment on above: Performed By: #### L 100.0100, L500.4050, L501.5200, L501.9520, L506.0400 ####[facility] [place] [facility] [address] [place], [address] RDW SD 48.3 fl High 35.1-43.9 [facility] [place] [facility] Comment on above: Performed By: #### L 100.0100, L500.4050, L501.5200, L501.9520, L506.0400 ####[facility] [place] [facility] [address] [place], [address] WBC (Bld) [#/Vol] 8.6 10*3/uL Normal 4.4-11.0 [facility] Comment on above: Performed By: #### L 100.0100, L500.4050, L501.5200, L501.9520, L506.0400 ####[facility] [place] [facility] [address] [place], [address] Comprehensive Metabolic Prof ilon 09-26-2023 Albumin [Mass/Vol] 3.4 g/dL Normal 3.2-5.0 [facility] Comment on above: Order Comment: DR RONALD WRAY GETS TSH LIVER AND T4F Performed By: #### L 100.0100, L500.4050, L501.5200, L501.9520, L506.0400 ####[facility] [place] [facility] [address] [place], [address] Albumin/Globulin [Mass ratio] 0.7 {ratio} Low 0.9-2.4 [facility] [place] [facility] Comment on above: Order Comment: DR RONALD WRAY GETS TSH LIVER AND T4F Performed By: #### L 100.0100, L500.4050, L501.5200, L501.9520, L506.0400 ####[facility] [place] [facility] [address] [place], [address] ALK P 98 U/L Normal 45-117 [facility] [place] [facility] Comment on above: Order Comment: DR RONALD WRAY GETS TSH LIVER AND T4F Performed By: #### L 100.0100, L500.4050, L501.5200, L501.9520, L506.0400 ####[facility] [place] [facility] [address] [place], [address] ALT [Catalytic activity/Vol] 18 U/L Normal 16-61 [facility] [place] [facility] Comment on above: Order Comment: DR RONALD WRAY GETS TSH LIVER AND T4F Performed By: #### L 100.0100, L500.4050, L501.5200, L501.9520, L506.0400 ####[facility] [place] [facility] [address] [place], [address] AST [Catalytic activity/Vol] 18 U/L Normal 15-37 [facility] Comment on above: Order Comment: DR RONALD WRAY GETS TSH LIVER AND T4F Performed By: #### L 100.0100, L500.4050, L501.5200, L501.9520, L506.0400 ####[facility] [address] [place], [address] Bilirubin [Mass/Vol] 0.40 mg/dL Normal 0.20-1.00 [facility] Comment on above: Order Comment: DR RONALD WRAY GETS TSH LIVER AND T4F Result Comment: For patients on eltrombopag therapy, use of [employer]ension [place] TBIL is not recommended. Performed By: #### L 100.0100, L500.4050, L501.5200, L501.9520, L506.0400 ####[facility] [place] [facility] [address] [place], [address] BUN/CRE 25.5 RATIO High 10-20 [facility] Comment on above: Order Comment: DR RONALD WRAY GETS TSH LIVER AND T4F Performed By: #### L 100.0100, L500.4050, L501.5200, L501.9520, L506.0400 ####[facility] [address] [place], [address] CA,Total 8.8 mg/dL Normal 8.5-10.1 [facility] Comment on above: Order Comment: DR RONALD WRAY GETS TSH LIVER AND T4F Performed By: #### L 100.0100, L500.4050, L501.5200, L501.9520, L506.0400 ####[facility] [address] [place], [address] Chloride [Moles/Vol] 105 mmol/L Normal 98-107 [facility] Comment on above: Order Comment: DR RONALD WRAY GETS TSH LIVER AND T4F Performed By: #### L 100.0100, L500.4050, L501.5200, L501.9520, L506.0400 ####[facility] [address] [place], [address] CO2 [Moles/Vol] 18.0 mmol/L Low 21.0-32.0 [facility] Comment on above: Order Comment: DR RONALD WRAY GETS TSH LIVER AND T4F Performed By: #### L 100.0100, L500.4050, L501.5200, L501.9520, L506.0400 ####[facility] [address] [place], [address] Creatinine [Mass/Vol] 1.37 mg/dL High 0.70-1.30 [facility] Comment on above: Order Comment: DR RONALD WRAY GETS TSH LIVER AND T4F Result Comment: The validity of the calculated GFR GFRAA in patients over70 years has not been determined. Clinical correlation isessential. Performed By: #### L 100.0100, L500.4050, L501.5200, L501.9520, L506.0400 ####[facility] [address] [place], [address] EST GFR - AA 68 mL/min Normal >60 [facility] Comment on above: Order Comment: DR RONALD WRAY GETS TSH LIVER AND T4F Result Comment: Afri can [place] GFR Calc Performed By: #### L 100.0100, L500.4050, L501.5200, L501.9520, L506.0400 ####[facility] [address] [place], [address] GAP 12 Normal 5-15 [facility] Comment on above: Order Comment: DR RONALD WRAY GETS TSH LIVER AND T4F Performed By: #### L 100.0100, L500.4050, L501.5200, L501.9520, L506.0400 ####[facility] [address] [place], [address] GFR/1.73 sq M.predicted among non-blacks MDRD (S/P/Bld) [Vol rate/Area] 56 mL/min/{1.73_m2} Low >60 [facility] Comment on above: Order Comment: DR RONALD WRAY GETS TSH LIVER AND T4F Result Comment: Non- GFR Calc Performed By: #### L 100.0100, L500.4050, L501.5200, L501.9520, L506.0400 ####[facility] [address] [place], [address] Globulin (S) [Mass/Vol] 4.9 g/dL High 2.2-4.2 [facility] Comment on above: Order Comment: DR RONALD WRAY GETS TSH LIVER AND T4F Performed By: #### L 100.0100, L500.4050, L501.5200, L501.9520, L506.0400 ####[facility] [address] [place], [address] Glucose [Mass/Vol] 260 mg/dL High 74-106 [facility] Comment on above: Order Comment: DR RONALD WRAY GETS TSH LIVER AND T4F Result Comment: Gluc ose result greater than or equal to 200 mg/dLsuggests DIABETES MELLITUS per A.D.A. criteria. Performed By: #### L 100.0100, L500.4050, L501.5200, L501.9520, L506.0400 ####[facility] [address] [place], [address] Potassium [Moles/Vol] 4.2 mmol/L Normal 3.5-5.1 [facility] Comment on above: Order Comment: DR RONALD WRAY GETS TSH LIVER AND T4F Performed By: #### L 100.0100, L500.4050, L501.5200, L501.9520, L506.0400 ####[facility] [address] [place], [address] Sodium [Moles/Vol] 135 mmol/L Low 136-145 [facility] Comment on above: Order Comment: DR RONALD WRAY GETS TSH LIVER AND T4F Performed By: #### L 100.0100, L500.4050, L501.5200, L501.9520, L506.0400 ####[facility] [address] [place], [address] T PROT 8.3 g/dL High 6.4-8.2 [facility] Comment on above: Order Comment: DR RONALD WRAY GETS TSH LIVER AND T4F Performed By: #### L 100.0100, L500.4050, L501.5200, L501.9520, L506.0400 ####[facility] [address] [place], [address] Urea nitrogen [Mass/Vol] 35 mg/dL High 7-18 [facility] Comment on above: Order Comment: DR RONALD WRAY GETS TSH LIVER AND T4F Performed By: #### L 100.0100, L500.4050, L501.5200, L501.9520, L506.0400 ####[facility] [address] [place], [address] Folates, (Folic Acid)on 08-31 FOLATES 4.90 ng/mL Normal 3.1-55.4 [facility] Comment on above: Order Comment: Y Result Comment: Slig ht Hemolysis, Result may be falsely increased. Performed By: #### L 506.0250, L3300.8000, L500.4100, L501.4700, L503.0105, L3130.0010 ####[facility] [address] [place], [address] Lipid Profileon 09-26-2023 Cholesterol [Mass/Vol] 156 mg/dL Normal 200 [facility] Comment on above: Order Comment: Y Result Comment: <200 mg/dL Desirable 200-240 mg/dL Borderline >240 mg/dL High Risk Performed By: #### L 506.0250, L3300.8000, L500.4100, L501.4700, L503.0105, L3130.0010 ####[facility] [address] [place], [address] Cholesterol in HDL [Mass/Vol] 31 mg/dL Low [facility] Comment on above: Order Comment: Y Result Comment: The drugs N-Acetylcysteine and Metamizole may falselydepress this assay. Reference Range HDL <40 mg/dL Low HDL Cholesterol HDL >or= 60 mg/dL High HDL Cholesterol Performed By: #### L 506.0250, L3300.8000, L500.4100, L501.4700, L503.0105, L3130.0010 ####[facility] [address] [place], [place], [id number] LDL TNP Normal 0-130 [facility] Comment on above: Order Comment: Y Performed By: #### L 506.0250, L3300.8000, L500.4100, L501.4700, L503.0105, L3130.0010 ####[facility] [address] [place], [address] Triglyceride [Mass/Vol] 418 mg/dL High [facility] Comment on above: Order Comment: Y [...] L 506.0250, L3300.8000, L500.4100, L501.4700, L503.0105, L3130.0010 ####[facility] [address] [place], [place], [phone] VLDL TNP Normal 5-40 [facility] Comment on above: Order Comment: Y Performed By: #### L 506.0250, L3300.8000, L500.4100, L501.4700, L503.0105, L3130.0010 ####[facility] [address] [place], [address] Magnesiumon 09-26-2023 Magnesium [Mass/Vol] 2.1 mg/dL Normal 1.6-2.6 [facility] Comment on above: Order Comment: DR RONALD WRAY GETS TSH LIVER AND T4F Performed By: #### L 100.0100, L500.4050, L501.5200, L501.9520, L506.0400 ####[facility] [address] [place], [address] T4 Free Directon 09-26-2023 T4 FREE DIRECT 1.22 ng/dL Normal 0.76-1.46 [facility] Comment on above: Order Comment: DR RONALD WRAY GETS TSH LIVER AND T4F Performed By: #### L 100.0100, L500.4050, L501.5200, L501.9520, L506.0400 ####[facility] [address] [place], [address] Thyroid Stim Hormone (TSH)on 09-26-2023 TSH 1.67 uIU/mL Normal 0.358-3.74 [facility] Comment on above: Order Comment: DR RONALD WRAY GETS TSH LIVER AND T4F Performed By: #### L 100.0100, L500.4050, L501.5200, L501.9520, L506.0400 ####[facility] [address] [place], [address] Vitamin B12on 09-26-2023 Cobalamin (Vitamin B12) [Mass/Vol] 331 pg/mL Normal 211-911 [facility] Comment on above: Performed By: #### L 506.0250, L3300.8000, L500.4100, L501.4700, L503.0105, L3130.0010 ####[facility] [address] [place], [address] Pulmonary Visit Reporton Pulmonary Visit Report Normal [facility] L/S Spine Min 4 Viewson 08-31 L/S Spine Min 4 Views Normal [facility] Thoracic Spine 3 Viewson Thoracic Spine 3 Views Normal [facility] Absolute lymphocyte countOrd ered By: Fany Diaz on 08-05-2023 Lymphocytes Auto (Unsp spec) [#/Vol] 2.02 10*3/uL 0.83-4.51 [facility] Automated lymphocyte count a s percentage of total leukocytesOrdered By: [facility] Diaz on 08-05-2023 Lymphocytes/100 WBC Auto (Unsp spec) 22.3 % 19-41 [facility] Basophil percentageOrdered B y: [facility] on 08-05-2023 Basophil percentage 3.9 mg/dL 2.5-4.9 [facility] Basophils/100 WBC (Bld) 0.9 % 0-1 [facility] Chloride [Moles/Vol] 108 mmol/L 98-107 [facility] Eosinophils/100 WBC (Bld) 3.2 % 0-5 [facility] Glucose [Mass/Vol] 158 mg/dL 74-106 [facility] Comment on above: Fasting Glucose resu lt greater than or equal to 126 mg/dL suggests DIABETES MELLITUS per A.D.A. criteria. Hemoglobin (Bld) [Mass/Vol] 11.6 g/dL 13.0-16.5 [facility] Monocytes/100 WBC (Bld) 9.6 % 0-10 [facility] Neutrophils (Bld) [#/Vol] 5.8 10*3/uL 2.0-7.7 [facility] Neutrophils/100 WBC (Bld) 63.6 % 47-70 [facility] Potassium [Moles/Vol] 4.1 mmol/L 3.5-5.1 [facility] Sodium [Moles/Vol] 136 mmol/L 136-145 [facility] WBC (Bld) [#/Vol] 9.1 10*3/uL 4.4-11.0 [facility] Determination of erythrocyte mean corpuscular volume (MCV)Ordered By: Fany Diaz on 08-05-2023 MCV (RBC) [Entitic vol] 77.0 fL 80-94 [facility] Erythrocyte distribution wid th ratioOrdered By: Fany Diaz on 08-05-2023 Erythrocyte distribution width (RBC) [Ratio] 18.6 % 11.6-14.6 [facility] Erythrocyte distribution wid th standard deviationOrdered By: Fany Diaz on 08-05-2023 Erythrocyte distribution width (RBC) [Entitic vol] 51.4 fL 35.1-43.9 [facility] Hematocrit Auto (Bld) [Volum e fraction]Ordered By: Fany Diaz on 08-05-2023 Hematocrit (Bld) [Volume fraction] 38.1 % 40-54 [facility] Immature granulocytes/100 WB C Auto (Bld)Ordered By: Fany Diaz on 08-05-2023 Immature granulocytes/100 WBC (Bld) 0.400 % 0.0-0.9 [facility] Comment on above: IG% - Immature Granu locytes (promyelocytes, myelocytes and metamyelocytes) > 1% indicates that a LEFT SHIFT is Present. Iron measurement (mass/mass) Ordered By: Fany Diaz on 08-05-2023 Iron (Unsp spec) [Mass/Mass] 42 ug/dL 65-175 [facility] Laboratory - Chemistry and C hemistry - challengeOrdered By: Fany Diaz on 08-05-2023 CO2 [Moles/Vol] 20.0 mmol/L 21.0-32.0 [facility] Ferritin [Mass/Vol] 20 ng/mL 26-388 [facility] Urea nitrogen/Creatinine [Mass ratio] 25.5 mg/mg 10-20 [facility] Laboratory - Hematology and Cell countsOrdered By: Fany Diaz on 08-05-2023 MCH (RBC) [Entitic mass] 23.4 pg 27.0-32.0 [facility] MCHC (RBC) [Mass/Vol] 30.4 g/dL 32-36 [facility] Nucleated RBC/100 WBC (Bld) [Ratio] 0 % 0-5 [facility] Platelet mean volume (Bld) [Entitic vol] 9.8 fL 6.2-12.0 [facility] Platelets (Bld) [#/Vol] 277 10*3/uL 150-450 [facility] No Panel InformationOrdered By: Fany Diaz on 08-05-2023 Estimated GFR (MDRD) Amer 88 mL/min >60 [facility] Comment on above: GFR Calc Estimated GFR (MDRD) Non-Af Amer 73 mL/min >60 [facility] Comment on above: Non- GFR Calc Parathyroid Hormone (Intact) 71.4 pg/mL 18.4-80.1 [facility] Total Iron Binding Capacity 383 ug/dL 250-450 [facility] RBC Auto (Bld) [#/Vol]Ordere d By: Fany Diaz on 08-05-2023 RBC (Bld) [#/Vol] 4.95 10*6/uL 4.6-6.2 [facility] Serum or plasma calcium grazyna urement (mass/volume)Ordered By: Fany Diaz on 08-05-2023 Calcium [Mass/Vol] 9.3 mg/dL 8.5-10.1 [facility] Serum or plasma creatinine m easurement (mass/volume)Ordered By: Fany Diaz on 08-05-2023 Creatinine [Mass/Vol] 1.10 mg/dL 0.70-1.30 [facility] Comment on above: The validity of the calculated GFR & GFRAA in patients over 70 years has not been determined. Clinical correlation is essential. Serum or plasma iron saturat ion measurement (mass fraction)Ordered By: Fany Diaz on 08-05-2023 Iron saturation [Mass fraction] 11.0 % 15.0-55.0 [facility] Serum or plasma urea nitroge n measurement (mass/volume)Ordered By: Fany Diaz on 08-05-2023 Urea nitrogen [Mass/Vol] 28 mg/dL 7-18 [facility] Serum or plasma uric acid me asurement (mass/volume)Ordered By: Fany Diaz on 08-05-2023 Urate [Mass/Vol] 7.3 mg/dL 3.5-7.2 [facility] Comment on above: The drugs N-Acetylcy steine and Metamizole may falsely depress this assay. Thin prep Papanicolaou smear with manual screeningOrdered By: Fany Diaz on 08-05-2023 Protein (U) [Mass/Vol] 25.0 mg/dL 0.0-11.8 [facility] Thin prep Papanicolaou smear with manual screening 3.3 g/dL 3.2-5.0 [facility] Urine creatinine measurement (mass/volume)Ordered By: Fany Diaz on 08-05-2023 Creatinine (U) [Mass/Vol] 67.40 mg/dL NO RANGE EST. [facility] Urine protein/creatinine mas s ratioOrdered By: [facility] on 08-05-2023 Protein/Creatinine (U) [Mass ratio] 371 mg/g CRE 0-200 [facility] Basophil percentageOrdered B y: Francois Valiente on 06-06-2023 Creatinine [Mass/Vol] 1.4 mg/dL 0.70-1.30 [facility] Laboratory - Chemistry and C hemistry - challengeOrdered By: Francois Valiente on 06-06-2023 GFR/1.73 sq M.predicted among non-blacks MDRD (S/P/Bld) [Vol rate/Area] 55.0000 mL/min/{1.73_m2} >60 [facility] Laboratory - Hematology and Cell countson 05-20-2023 HbA1c (Bld) [Mass fraction] 7.5 % 4.2-6.3 [facility] Basophil percentageOrdered B y: Oren Sky on 04-25-2023 Bilirubin [Mass/Vol] 0.50 mg/dL 0.20-1.00 [facility] Comment on above: For patients on eltr ombopag therapy, use of Dimension [place] TBIL is not recommended. Chloride [Moles/Vol] 108 mmol/L 98-107 [facility] Glucose [Mass/Vol] 157 mg/dL 74-106 [facility] Comment on above: Fasting Glucose resu lt greater than or equal to 126 mg/dL suggests DIABETES MELLITUS per A.D.A. criteria. Hemoglobin (Bld) [Mass/Vol] 11.5 g/dL 13.0-16.5 [facility] Potassium [Moles/Vol] 3.9 mmol/L 3.5-5.1 [facility] Protein [Mass/Vol] 8.4 g/dL 6.4-8.2 [facility] Sodium [Moles/Vol] 135 mmol/L 136-145 [facility] WBC (Bld) [#/Vol] 10.8 10*3/uL 4.4-11.0 [facility] Determination of erythrocyte mean corpuscular volume (MCV)Ordered By: Oren Sky on 04-25-2023 MCV (RBC) [Entitic vol] 76.0 fL 80-94 [facility] Erythrocyte distribution wid th ratioOrdered By: Oren Sky on 04-25-2023 Erythrocyte distribution width (RBC) [Ratio] 18.6 % 11.6-14.6 [facility] Erythrocyte distribution wid th standard deviationOrdered By: Oren Sky on 04-25-2023 Erythrocyte distribution width (RBC) [Entitic vol] 48.6 fL 35.1-43.9 [facility] Hematocrit Auto (Bld) [Volum e fraction]Ordered By: Oren Sky on 04-25-2023 Hematocrit (Bld) [Volume fraction] 38.0 % 40-54 [facility] Laboratory - Chemistry and C hemistry - challengeOrdered By: Oren Sky on 04-25-2023 Albumin/Globulin [Mass ratio] 0.7 {ratio} 0.9-2.4 [facility] ALP [Catalytic activity/Vol] 102 U/L 45-117 [facility] ALT [Catalytic activity/Vol] 27 U/L 16-61 [facility] CO2 [Moles/Vol] 18.0 mmol/L 21.0-32.0 [facility] Globulin (S) [Mass/Vol] 4.9 g/dL 2.2-4.2 [facility] Natriuretic peptide B (Bld) [Mass/Vol] 13.4 pg/mL 0-100 [facility] Urea nitrogen/Creatinine [Mass ratio] 19.2 mg/mg 10-20 [facility] Laboratory - Hematology and Cell countsOrdered By: Oren Sky on 04-25-2023 MCH (RBC) [Entitic mass] 23.0 pg 27.0-32.0 [facility] MCHC (RBC) [Mass/Vol] 30.3 g/dL 32-36 [facility] Platelets (Bld) [#/Vol] 289 10*3/uL 150-450 [facility] No Panel InformationOrdered By: Oren Sky on 04-25-2023 Estimated GFR (MDRD) Amer 73 mL/min >60 [facility] Comment on above: GFR Calc Estimated GFR (MDRD) Non-Af Amer 60 mL/min >60 [facility] Comment on above: Non- GFR Calc Platelet mean volume Deon-Ec ker (Bld) [Entitic vol]Ordered By: Oren Sky on 04-25-2023 Platelet mean volume (Bld) [Entitic vol] 9.7 fL 6.2-12.0 [facility] RBC Auto (Bld) [#/Vol]Ordere d By: Oren Sky on 04-25-2023 RBC (Bld) [#/Vol] 5.00 10*6/uL 4.6-6.2 [facility] Serum or plasma calcium grazyna urement (mass/volume)Ordered By: Oren Sky on 04-25-2023 Calcium [Mass/Vol] 9.2 mg/dL 8.5-10.1 [facility] Serum or plasma creatinine m easurement (mass/volume)Ordered By: Oren Sky on 04-25-2023 Creatinine [Mass/Vol] 1.30 mg/dL 0.70-1.30 [facility] Comment on above: The validity of the calculated GFR & GFRAA in patients over 70 years has not been determined. Clinical correlation is essential. Serum or plasma thyroid stim ulating hormone (TSH) measurement (units/volume)Ordered By: Oren Sky on 04-25-2023 TSH Qn 1.74 uIU/mL 0.358-3.74 [facility] Serum or plasma urea nitroge n measurement (mass/volume)Ordered By: Oren Sky on 04-25-2023 Urea nitrogen [Mass/Vol] 25 mg/dL 7-18 [facility] Thin prep Papanicolaou smear with manual screeningOrdered By: Oren Sky on 04-25-2023 Thin prep Papanicolaou smear with manual screening 3.5 g/dL 3.2-5.0 [facility] Thin prep Papanicolaou smear with manual screening 17 U/L 15-37 [facility] Thin prep Papanicolaou smear with manual screening 9 5-15 [facility] Laboratory - Chemistry and C hemistry - challengeOrdered By: Coreen Gerardo on 02-26-2023 Free T4 [Mass/Vol] 0.85 ng/dL 0.76-1.46 [facility] No Panel InformationOrdered By: Coreen Gerardo on 02-26-2023 Thyroid Stimulating Hormone (TSH) 8.76 uIU/mL 0.358-3.74 [facility] Basophil percentageOrdered B y: Fany Diaz on 01-15-2023 Basophil percentage 2.8 mg/dL 2.5-4.9 [facility] Chloride [Moles/Vol] 107 mmol/L 98-107 [facility] Glucose [Mass/Vol] 74 mg/dL 74-106 [facility] Potassium [Moles/Vol] 3.2 mmol/L 3.5-5.1 [facility] Sodium [Moles/Vol] 139 mmol/L 136-145 [facility] Laboratory - Chemistry and C hemistry - challengeOrdered By: Fany Diaz on 01-15-2023 CO2 [Moles/Vol] 24.0 mmol/L 21.0-32.0 [facility] Urea nitrogen/Creatinine [Mass ratio] 10.2 mg/mg 10-20 [facility] No Panel InformationOrdered By: Fany Diaz on 01-15-2023 Estimated GFR (MDRD) Amer 74 mL/min >60 [facility] Comment on above: GFR Calc Estimated GFR (MDRD) Non-Af Amer 61 mL/min >60 [facility] Comment on above: Non- GFR Calc Serum or plasma albumin grazyna urement (mass/volume)Ordered By: Fany Diaz on 01-15-2023 Albumin [Mass/Vol] 3.2 g/dL 3.2-5.0 [facility] Serum or plasma calcium grazyna urement (mass/volume)Ordered By: Fany Diaz on 01-15-2023 Calcium [Mass/Vol] 8.7 mg/dL 8.5-10.1 [facility] Serum or plasma creatinine m easurement (mass/volume)Ordered By: [facility] on 01-15-2023 Creatinine [Mass/Vol] 1.28 mg/dL 0.70-1.30 [facility] Comment on above: The validity of the calculated GFR & GFRAA in patients over 70 years has not been determined. Clinical correlation is essential. Serum or plasma urea nitroge n measurement (mass/volume)Ordered By: [facility] on 01-15-2023 Urea nitrogen [Mass/Vol] 13 mg/dL 7-18 [facility] Urine creatinine measurement (mass/volume)Ordered By: [facility] on 01-15-2023 Creatinine (U) [Mass/Vol] 73.90 mg/dL NO RANGE EST. [facility] Urine protein measurement (m ass/volume)Ordered By: [facility] on 01-15-2023 Protein (U) [Mass/Vol] 16.2 mg/dL 0.0-11.8 [facility] Urine protein/creatinine mas s ratioOrdered By: [facility] on 01-15-2023 Protein/Creatinine (U) [Mass ratio] 219 mg/g CRE 0-200 [facility] Absolute lymphocyte countOrd ered By: [facility] on 12-31-2022 Lymphocytes Auto (Unsp spec) [#/Vol] 1.76 10*3/uL 0.83-4.51 [facility] Basophil percentageOrdered B y: [facility] on 12-31-2022 Basophil percentage 3.7 mg/dL 2.5-4.9 [facility] Basophils/100 WBC (Bld) 0.6 % 0-1 [facility] Chloride [Moles/Vol] 107 mmol/L 98-107 [facility] Eosinophils/100 WBC (Bld) 2.3 % 0-5 [facility] Glucose [Mass/Vol] 117 mg/dL 74-106 [facility] Comment on above: Fasting Glucose resu lt from 100 to 125 mg/dL suggests IMPAIRED HOMEOSTASIS per A.D.A. criteria. Neutrophils (Bld) [#/Vol] 7.8 10*3/uL 2.0-7.7 [facility] Neutrophils/100 WBC (Bld) 72.0 % 47-70 [facility] Potassium [Moles/Vol] 3.8 mmol/L 3.5-5.1 [facility] Sodium [Moles/Vol] 138 mmol/L 136-145 [facility] WBC (Bld) [#/Vol] 10.9 10*3/uL 4.4-11.0 [facility] Bilirubin Test strip Ql (U)O rdered By: Fany Diaz on 12-31-2022 Bilirubin Ql (U) Negative Negative [facility] Blood erythrocytes count (nu mber/volume)Ordered By: Fany Diaz on 12-31-2022 RBC (Bld) [#/Vol] 4.20 10*6/uL 4.6-6.2 [facility] Blood hemoglobin measurement (mass/volume)Ordered By: Fany Diaz on 12-31-2022 Hemoglobin (Bld) [Mass/Vol] 10.8 g/dL 13.0-16.5 [facility] Blood lymphocytes/100 leukoc ytesOrdered By: Fany Diaz on 12-31-2022 Lymphocytes/100 WBC (Bld) 16.1 % 19-41 [facility] Blood monocytes/100 leukocyt esOrdered By: Fany Diaz on 12-31-2022 Monocytes/100 WBC (Bld) 8.5 % 0-10 [facility] Blood platelet mean volumeOr dered By: Fany Diaz on 12-31-2022 Platelet mean volume (Bld) [Entitic vol] 10.1 fL 6.2-12.0 [facility] Determination of erythrocyte mean corpuscular volume (MCV)Ordered By: Fany Diaz on 12-31-2022 MCV (RBC) [Entitic vol] 82.4 fL 80-94 [facility] Hematocrit Auto (Bld) [Volum e fraction]Ordered By: Fany Diaz on 12-31-2022 Hematocrit (Bld) [Volume fraction] 34.6 % 40-54 [facility] Iron measurement (mass/mass) Ordered By: Fany Diaz on 12-31-2022 Iron (Unsp spec) [Mass/Mass] 37 ug/dL 65-175 [facility] Ketones Test strip Ql (U)Ord ered By: Fany Diaz on 12-31-2022 Ketones Ql (U) Negative Negative [facility] Laboratory - Chemistry and C hemistry - challengeOrdered By: Fany Diaz on 12-31-2022 Albumin [Mass/Vol] 3.4 g/dL 2.9-4.4 [facility] CO2 [Moles/Vol] 22.0 mmol/L 21.0-32.0 [facility] Urea nitrogen/Creatinine [Mass ratio] 21.4 mg/mg 10-20 [facility] Laboratory - Hematology and Cell countsOrdered By: Fany Diaz on 12-31-2022 Erythrocyte distribution width (RBC) [Entitic vol] 50.4 fL 35.1-43.9 [facility] Erythrocyte distribution width (RBC) [Ratio] 16.8 % 11.6-14.6 [facility] Immature granulocytes/100 WBC (Bld) 0.500 % 0.0-0.9 [facility] Comment on above: IG% - Immature Granu locytes (promyelocytes, myelocytes and metamyelocytes) > 1% indicates that a LEFT SHIFT is Present. MCH (RBC) [Entitic mass] 25.7 pg 27.0-32.0 [facility] Nucleated RBC/100 WBC (Bld) [Ratio] 0 % 0-5 [facility] MCHC Auto (RBC) [Mass/Vol]Or dered By: Fany Diaz on 12-31-2022 MCHC (RBC) [Mass/Vol] 31.2 g/dL 32-36 [facility] Nitrite Test strip Ql (U)Ord ered By: Fany Diaz on 12-31-2022 Nitrite Ql (U) Negative Negative [facility] No Panel InformationOrdered By: Fany Diaz on 12-31-2022 Addendum Document Comment . [facility] Comment on above: The SPE pattern refl ects a polyclonal increase in gammaglobulin. Hypergammaglobulinemia is found in a wide varietyof infectious, non-infectious, and autoimmune diseasestates. Evidence of monoclonal protein is not apparent. Qabnw-4-Bztvnwbld 0.2 g/dL 0.0-0.4 [facility] Gskql-1-Xcfwgglde 0.9 g/dL 0.4-1.0 [facility] Estimated GFR (MDRD) Amer 75 mL/min >60 [facility] Comment on above: GFR Calc Estimated GFR (MDRD) Non-Af Amer 62 mL/min >60 [facility] Comment on above: Non- GFR Calc Gamma Globulins 1.9 g/dL 0.4-1.8 [facility] Total Iron Binding Capacity 355 ug/dL 250-450 [facility] Vitamin D 25-Hydroxy 33.7 ng/mL [facility] Comment on above: Vitamin D 25(OH) Sta tus Range Deficiency <20 ng/mL (50nmol/L) Insufficiency 20 - 30 ng/mL (50 - 75 nmol/L) Sufficiency 30 - 100 ng/mL (75 - 250 nmol/L) Toxicity >100 ng/mL (>250 nmol/L) Platelets bldOrdered By: Roxi Diaz on 12-31-2022 Platelets (Bld) [#/Vol] 265 10*3/uL 150-450 [facility] Protein Fractions Elph [Inte rp]Ordered By: Fany Diaz on 12-31-2022 Protein Fractions [Interp] Comment . [facility] Comment on above: Protein electrophore sis scan will follow via computer,mail, or rental sales representative delivery. Protein Test strip Ql (U)Ord ered By: Fany Diaz on 12-31-2022 Protein Ql (U) 15 mg/dl Negative [facility] Serum albumin to globulin ra balaji by protein electrophoresisOrdered By: Fany Diaz on 12-31-2022 Albumin/Globulin Elph [Mass ratio] 0.8 0.7-1.7 [facility] Serum globulin measurement ( mass/volume)Ordered By: Fany Diaz on 12-31-2022 Globulin (S) [Mass/Vol] 4.1 g/dL 2.2-3.9 [facility] Serum or plasma albumin grazyna urement (mass/volume)Ordered By: Fany Diaz on 12-31-2022 Albumin [Mass/Vol] 3.3 g/dL 3.2-5.0 [facility] Serum or plasma beta globuli n measurement by electrophoresis (mass/volume)Ordered By: Fany Diaz on 12-31-2022 Beta globulin Elph [Mass/Vol] 1.1 g/dL 0.7-1.3 [facility] Serum or plasma calcium grazyna urement (mass/volume)Ordered By: Fany Diaz on 12-31-2022 Calcium [Mass/Vol] 8.7 mg/dL 8.5-10.1 [facility] Serum or plasma complement C 3 measurement (mass/volume)Ordered By: Fany Diaz on 12-31-2022 Complement C3 [Mass/Vol] 159 mg/dL 82-167 [facility] Comment on above: Performed at: [place] [id number] Director: Chance Morales PhD, Phone: [phone] Serum or plasma complement C 4 measurement (mass/volume)Ordered By: Fany Diaz on 12-31-2022 Complement C4 [Mass/Vol] 26 mg/dL 12-38 [facility] Serum or plasma creatinine m easurement (mass/volume)Ordered By: Fany Diaz on 12-31-2022 Creatinine [Mass/Vol] 1.26 mg/dL 0.70-1.30 [facility] Comment on above: The validity of the calculated GFR & GFRAA in patients over 70 years has not been determined. Clinical correlation is essential. Serum or plasma ferritin elizabeth surement (mass/volume)Ordered By: Fany Diaz on 12-31-2022 Ferritin [Mass/Vol] 37 ng/mL 26-388 [facility] Serum or plasma iron saturat ion measurement (mass fraction)Ordered By: Fany Diaz on 12-31-2022 Iron saturation [Mass fraction] 10.4 % 15.0-55.0 [facility] Serum or plasma urea nitroge n measurement (mass/volume)Ordered By: Fany Diaz on 12-31-2022 Urea nitrogen [Mass/Vol] 27 mg/dL 7-18 [facility] Serum or plasma uric acid me asurement (mass/volume)Ordered By: Fany Diaz on 12-31-2022 Urate [Mass/Vol] 8.2 mg/dL 3.5-7.2 [facility] Comment on above: The drugs N-Acetylcy steine and Metamizole may falsely depress this assay. Thin prep Papanicolaou smear with manual screeningOrdered By: Fany Diaz on 12-31-2022 Thin prep Papanicolaou smear with manual screening See comment [facility] Comment on above: NOT OBSERVED Total protein bloodOrdered B y: Fany Diaz on 12-31-2022 Protein [Mass/Vol] 7.5 g/dL 6.0-8.5 [facility] Urine blood detectionOrdered By: Fany Diaz on 12-31-2022 RBC Ql (U) Negative Negative [facility] Urine clarityOrdered By: Roxi Diaz on 12-31-2022 Clarity (U) Sl. Cloudy Clear [facility] Urine color determinationOrd ered By: Fany Diaz on 12-31-2022 Color (U) Yellow Yellow [facility] Urine creatinine measurement (mass/volume)Ordered By: Fany Diaz on 12-31-2022 Creatinine (U) [Mass/Vol] 95.50 mg/dL NO RANGE EST. [facility] Urine glucose detectionOrder ed By: Fany Diaz on 12-31-2022 Glucose Ql (U) Normal mg/dl Normal [facility] Urine leukocyte esterase det ection by dipstickOrdered By: Fany Diaz on 12-31-2022 Leukocyte esterase Test strip Ql (U) Negative Negative [facility] Urine pHOrdered By: Fany Diaz on 12-31-2022 pH (U) 5.0 [pH] 5.0 - 8.0 [facility] Urine protein measurement (m ass/volume)Ordered By: Fany Diaz on 12-31-2022 Protein (U) [Mass/Vol] 15.7 mg/dL 0.0-11.8 [facility] Urine specific gravity measu rementOrdered By: Fany Diaz on 12-31-2022 Specific gravity (U) [Rel density] 1.015 1.002-1.03 0 [facility] Urobilinogen Auto test strip Ql (U)Ordered By: Fany Diaz on 12-31-2022 Urobilinogen Ql (U) Normal mg/dl Normal [facility] Laboratory - Hematology and Cell countson 12-10-2022 HbA1c (Bld) [Mass fraction] 7.1 % 4.2-6.3 [facility] Laboratory - Chemistry and C hemistry - challengeOrdered By: Brandt Winter on 11-07-2022 Natriuretic peptide B (Bld) [Mass/Vol] 9.7 pg/mL 0-100 [facility] T4 [Mass/Vol] 10.9 ug/dL 4.5-12.1 [facility] No Panel InformationOrdered By: Brandt Winter on 11-07-2022 Thyroid Stimulating Hormone (TSH) 0.27 uIU/mL 0.358-3.74 [facility] Total Triiodothyronine 1.16 ng/mL 0.6-1.81 [facility] Absolute lymphocyte countOrd ered By: Brandt Winter on 10-31-2022 Lymphocytes Auto (Unsp spec) [#/Vol] 1.83 10*3/uL 0.83-4.51 [facility] Basophil percentageOrdered B y: Brandt Winter on 10-31-2022 Basophils/100 WBC (Bld) 0.6 % 0-1 [facility] Bilirubin [Mass/Vol] 0.60 mg/dL 0.20-1.00 [facility] Comment on above: For patients on eltr ombopag therapy, use of Dimension [place] TBIL is not recommended. Chloride [Moles/Vol] 107 mmol/L 98-107 [facility] Eosinophils/100 WBC (Bld) 3.8 % 0-5 [facility] Glucose [Mass/Vol] 119 mg/dL 74-106 [facility] Comment on above: Fasting Glucose resu lt from 100 to 125 mg/dL suggests IMPAIRED HOMEOSTASIS per A.D.A. criteria. Neutrophils (Bld) [#/Vol] 4.7 10*3/uL 2.0-7.7 [facility] Neutrophils/100 WBC (Bld) 59.2 % 47-70 [facility] Potassium [Moles/Vol] 4.9 mmol/L 3.5-5.1 [facility] Protein [Mass/Vol] 8.9 g/dL 6.4-8.2 [facility] Sodium [Moles/Vol] 135 mmol/L 136-145 [facility] WBC (Bld) [#/Vol] 7.9 10*3/uL 4.4-11.0 [facility] Blood erythrocytes count (nu mber/volume)Ordered By: Brandt Winter on 10-31-2022 RBC (Bld) [#/Vol] 3.94 10*6/uL 4.6-6.2 [facility] Blood hemoglobin measurement (mass/volume)Ordered By: Brandt Winter on 10-31-2022 Hemoglobin (Bld) [Mass/Vol] 10.4 g/dL 13.0-16.5 [facility] Blood lymphocytes/100 leukoc ytesOrdered By: Brandt Winter on 10-31-2022 Lymphocytes/100 WBC (Bld) 23.2 % 19-41 [facility] Blood monocytes/100 leukocyt esOrdered By: Brandt Winter on 10-31-2022 Monocytes/100 WBC (Bld) 12.7 % 0-10 [facility] Blood platelet mean volumeOr dered By: Brandt Winter on 10-31-2022 Platelet mean volume (Bld) [Entitic vol] 10.2 fL 6.2-12.0 [facility] Determination of erythrocyte mean corpuscular volume (MCV)Ordered By: Brandt Winter on 10-31-2022 MCV (RBC) [Entitic vol] 81.0 fL 80-94 [facility] Hematocrit Auto (Bld) [Volum e fraction]Ordered By: Brandt Winter on 10-31-2022 Hematocrit (Bld) [Volume fraction] 31.9 % 40-54 [facility] Iron measurement (mass/mass) Ordered By: Brandt Winter on 10-31-2022 Iron (Unsp spec) [Mass/Mass] 35 ug/dL 65-175 [facility] Laboratory - Chemistry and C hemistry - challengeOrdered By: Brandt Winter on 10-31-2022 ALP [Catalytic activity/Vol] 103 U/L 45-117 [facility] ALT [Catalytic activity/Vol] 24 U/L 16-61 [facility] CO2 [Moles/Vol] 19.0 mmol/L 21.0-32.0 [facility] Globulin (S) [Mass/Vol] 5.8 g/dL 2.2-4.2 [facility] Urea nitrogen/Creatinine [Mass ratio] 27.0 mg/mg 10-20 [facility] Laboratory - Hematology and Cell countsOrdered By: Brandt Winter on 10-31-2022 Erythrocyte distribution width (RBC) [Entitic vol] 49.3 fL 35.1-43.9 [facility] Erythrocyte distribution width (RBC) [Ratio] 16.7 % 11.6-14.6 [facility] Immature granulocytes/100 WBC (Bld) 0.500 % 0.0-0.9 [facility] Comment on above: IG% - Immature Granu locytes (promyelocytes, myelocytes and metamyelocytes) > 1% indicates that a LEFT SHIFT is Present. MCH (RBC) [Entitic mass] 26.4 pg 27.0-32.0 [facility] Nucleated RBC/100 WBC (Bld) [Ratio] 0 % 0-5 [facility] MCHC Auto (RBC) [Mass/Vol]Or dered By: Brandt Winter on 10-31-2022 MCHC (RBC) [Mass/Vol] 32.6 g/dL 32-36 [facility] No Panel InformationOrdered By: Brandt Winter on 10-31-2022 Estimated GFR (MDRD) Amer 61 mL/min >60 [facility] Comment on above: GFR Calc Estimated GFR (MDRD) Non-Af Amer 50 mL/min >60 [facility] Comment on above: Non- GFR Calc Thyroid Stimulating Hormone (TSH) 0.23 uIU/mL 0.358-3.74 [facility] Total Iron Binding Capacity 274 ug/dL 250-450 [facility] Vitamin D 25-Hydroxy 12.1 ng/mL [facility] Comment on above: Vitamin D 25(OH) Sta tus Range Deficiency <20 ng/mL (50nmol/L) Insufficiency 20 - 30 ng/mL (50 - 75 nmol/L) Sufficiency 30 - 100 ng/mL (75 - 250 nmol/L) Toxicity >100 ng/mL (>250 nmol/L) Platelets bldOrdered By: Ximena Winter on 10-31-2022 Platelets (Bld) [#/Vol] 253 10*3/uL 150-450 [facility] Serum or plasma albumin grazyna urement (mass/volume)Ordered By: Brandt Winter on 10-31-2022 Albumin [Mass/Vol] 3.1 g/dL 3.2-5.0 [facility] Serum or plasma albumin/glob ulin mass ratioOrdered By: Brandt Winter on 10-31-2022 Albumin/Globulin [Mass ratio] 0.5 {ratio} 0.9-2.4 [facility] Serum or plasma calcium grazyna urement (mass/volume)Ordered By: Brandt Winter on 10-31-2022 Calcium [Mass/Vol] 9.1 mg/dL 8.5-10.1 [facility] Serum or plasma creatinine m easurement (mass/volume)Ordered By: Brandt Winter on 10-31-2022 Creatinine [Mass/Vol] 1.52 mg/dL 0.70-1.30 [facility] Comment on above: The validity of the calculated GFR & GFRAA in patients over 70 years has not been determined. Clinical correlation is essential. Serum or plasma ferritin elizabeth surement (mass/volume)Ordered By: Brandt Winter on 10-31-2022 Ferritin [Mass/Vol] 158 ng/mL 26-388 [facility] Serum or plasma iron saturat ion measurement (mass fraction)Ordered By: Brandt Winter on 10-31-2022 Iron saturation [Mass fraction] 12.8 % 15.0-55.0 [facility] Serum or plasma urea nitroge n measurement (mass/volume)Ordered By: Brandt Winter on 10-31-2022 Urea nitrogen [Mass/Vol] 41 mg/dL 7-18 [facility] Thin prep Papanicolaou smear with manual screeningOrdered By: Brandt Winter on 10-31-2022 Thin prep Papanicolaou smear with manual screening 22 U/L 15-37 [facility] Thin prep Papanicolaou smear with manual screening 9 5-15 [facility] Glucose Glucometer (BldC) [M ass/Vol]Ordered By: Dr. Ospina on 08-03-2022 Glucose [Mass/Vol] 343 mg/dL 74-106 [facility] Comment on above: MANAGEMENT OF PATIEN T CARE PER NURSING PROTOCOL Absolute lymphocyte countOrd ered By: Dr. Bell on 08-02-2022 Lymphocytes Auto (Unsp spec) [#/Vol] 1.27 10*3/uL 0.83-4.51 [facility] Basophil percentageOrdered B y: Dr. Bell on 08-02-2022 Basophils/100 WBC (Bld) 0.8 % 0-1 [facility] Bilirubin [Mass/Vol] 0.50 mg/dL 0.20-1.00 [facility] Comment on above: For patients on eltr ombopag therapy, use of Dimension [place] TBIL is not recommended. Chloride [Moles/Vol] 104 mmol/L 98-107 [facility] Cholesterol [Mass/Vol] 133 mg/dL <200 [facility] Comment on above: <200 mg/dL Desirable 200-240 mg/dL Borderline >240 mg/dL High Risk Eosinophils/100 WBC (Bld) 3.1 % 0-5 [facility] Glucose [Mass/Vol] 280 mg/dL 74-106 [facility] Comment on above: Glucose result great er than or equal to 200 mg/dLsuggests DIABETES MELLITUS per A.D.A. criteria. Neutrophils (Bld) [#/Vol] 3.5 10*3/uL 2.0-7.7 [facility] Neutrophils/100 WBC (Bld) 59.7 % 47-70 [facility] Potassium [Moles/Vol] 4.0 mmol/L 3.5-5.1 [facility] Protein [Mass/Vol] 7.6 g/dL 6.4-8.2 [facility] Sodium [Moles/Vol] 135 mmol/L 136-145 [facility] Triglyceride [Mass/Vol] 300 mg/dL <199 [facility] Comment on above: The drugs N-Acetylcy steine and Metamizole may falsely depress this assay.Serum Triglycerides Reference Interval Normal <150 mg/dL Borderline high 150 - 199 mg/dL High 200 - 499 mg/dL Very High > or = 500 mg/dL WBC (Bld) [#/Vol] 5.9 10*3/uL 4.4-11.0 [facility] Blood erythrocytes count (nu mber/volume)Ordered By: Dr. Bell on 08-02-2022 RBC (Bld) [#/Vol] 4.27 10*6/uL 4.6-6.2 [facility] Blood hemoglobin measurement (mass/volume)Ordered By: Dr. Bell on 08-02-2022 Hemoglobin (Bld) [Mass/Vol] 10.7 g/dL 13.0-16.5 [facility] Blood lymphocytes/100 leukoc ytesOrdered By: Dr. Bell on 08-02-2022 Lymphocytes/100 WBC (Bld) 21.5 % 19-41 [facility] Blood monocytes/100 leukocyt esOrdered By: Dr. Bell on 08-02-2022 Monocytes/100 WBC (Bld) 14.4 % 0-10 [facility] Blood platelet mean volumeOr dered By: Dr. Bell on 08-02-2022 Platelet mean volume (Bld) [Entitic vol] 9.9 fL 6.2-12.0 [facility] Determination of erythrocyte mean corpuscular volume (MCV)Ordered By: Dr. Bell on 08-02-2022 MCV (RBC) [Entitic vol] 78.9 fL 80-94 [facility] Hematocrit Auto (Bld) [Volum e fraction]Ordered By: Dr. Bell on 08-02-2022 Hematocrit (Bld) [Volume fraction] 33.7 % 40-54 [facility] Laboratory - Chemistry and C hemistry - challengeOrdered By: Dr. Bell on 08-02-2022 ALP [Catalytic activity/Vol] 118 U/L 45-117 [facility] ALT [Catalytic activity/Vol] 25 U/L 16-61 [facility] CO2 [Moles/Vol] 20.0 mmol/L 21.0-32.0 [facility] Globulin (S) [Mass/Vol] 4.4 g/dL 2.2-4.2 [facility] Urea nitrogen/Creatinine [Mass ratio] 21.7 mg/mg 10-20 [facility] Laboratory - Hematology and Cell countsOrdered By: Dr. Bell on 08-02-2022 Erythrocyte distribution width (RBC) [Entitic vol] 46.5 fL 35.1-43.9 [facility] Erythrocyte distribution width (RBC) [Ratio] 16.4 % 11.6-14.6 [facility] Immature granulocytes/100 WBC (Bld) 0.500 % 0.0-0.9 [facility] Comment on above: IG% - Immature Granu locytes (promyelocytes, myelocytes and metamyelocytes) > 1% indicates that a LEFT SHIFT is Present. MCH (RBC) [Entitic mass] 25.1 pg 27.0-32.0 [facility] Nucleated RBC/100 WBC (Bld) [Ratio] 0 % 0-5 [facility] MCHC Auto (RBC) [Mass/Vol]Or dered By: Dr. Bell on 08-02-2022 MCHC (RBC) [Mass/Vol] 31.8 g/dL 32-36 [facility] No Panel InformationOrdered By: Dr. Bell on 08-02-2022 Estimated Creatinine Clearance Calc 83.01 ml/min [facility] Estimated GFR (MDRD) Amer 102 mL/min >60 [facility] Comment on above: GFR Calc Estimated GFR (MDRD) Non-Af Amer 84 mL/min >60 [facility] Comment on above: Non- GFR Calc Thyroid Stimulating Hormone (TSH) 1.36 uIU/mL 0.358-3.74 [facility] Platelets bldOrdered By: Dr. Bell on 08-02-2022 Platelets (Bld) [#/Vol] 193 10*3/uL 150-450 [facility] Serum or plasma albumin grazyna urement (mass/volume)Ordered By: Dr. Bell on 08-02-2022 Albumin [Mass/Vol] 3.2 g/dL 3.2-5.0 [facility] Serum or plasma albumin/glob ulin mass ratioOrdered By: Dr. Bell on 08-02-2022 Albumin/Globulin [Mass ratio] 0.7 {ratio} 0.9-2.4 [facility] Serum or plasma calcium grazyna urement (mass/volume)Ordered By: Dr. Bell on 08-02-2022 Calcium [Mass/Vol] 9.0 mg/dL 8.5-10.1 [facility] Serum or plasma cholesterol in HDL measurement (mass/volume)Ordered By: Dr. Bell on 08-02-2022 Cholesterol in HDL [Mass/Vol] 33 mg/dL >40 [facility] Comment on above: The drugs N-Acetylcy steine and Metamizole may falsely depress this assay. Reference Range HDL <40 mg/dL Low HDL Cholesterol HDL >or= 60 mg/dL High HDL Cholesterol Serum or plasma cholesterol in VLDL measurement (mass/volume)Ordered By: Dr. Bell on 08-02-2022 Cholesterol in VLDL [Mass/Vol] 60 mg/dL 5-40 [facility] Serum or plasma creatinine m easurement (mass/volume)Ordered By: Dr. Bell on 08-02-2022 Creatinine [Mass/Vol] 0.97 mg/dL 0.70-1.30 [facility] Comment on above: The validity of the calculated GFR & GFRAA in patients over 70 years has not been determined. Clinical correlation is essential. Serum or plasma low density lipoprotein (LDL) cholesterol measurement (mass/volume)Ordered By: Dr. Bell on 08-02-2022 Cholesterol in LDL [Mass/Vol] 40 mg/dL 0-130 [facility] Serum or plasma urea nitroge n measurement (mass/volume)Ordered By: Dr. Bell on 08-02-2022 Urea nitrogen [Mass/Vol] 21 mg/dL 7-18 [facility] Thin prep Papanicolaou smear with manual screeningOrdered By: Dr. Bell on 08-02-2022 Thin prep Papanicolaou smear with manual screening 18 U/L 15-37 [facility] Thin prep Papanicolaou smear with manual screening 11 5-15 [facility] Whole blood hemoglobin A1c/t otal hemoglobin ratio (mass fraction)Ordered By: Dr. Bell on 08-02-2022 HbA1c (Bld) [Mass fraction] 9.6 % 3.8-5.6 [facility] Comment on above: Normal < 5.7 % Predi abetic 5.7 - 6.4 % Diabetic >or= 6.5 % Please note range changes. INR in Blood by Coagulation assayOrdered By: ED PROVIDER on 08-01-2022 INR Coag (Bld) [Relative time] 1.1 {INR} [facility] Laboratory - Chemistry and C hemistry - challengeOrdered By: Dr. Bell on 08-01-2022 Magnesium [Mass/Vol] 1.7 mg/dL 1.6-2.6 [facility] Laboratory - CoagulationOrde red By: ED PROVIDER on 08-01-2022 aPTT Coag (Bld) [Time] 28.7 s 24.1-36.2 [facility] PT Coag (PPP) [Time] 13.8 s 11.7-14.9 [facility] No Panel InformationOrdered By: Dr. Hill on 08-01-2022 Troponin I High Sensitivity 9 pg/mL 3.0-78.0 [facility] Comment on above: Please Note: New Karly t Units and Gender Specific Reference Ranges. For more information see Policy Stat Procedure [place] High Sensitivity Troponin (TNIH) and attachments. Basophil percentageOrdered B y: Oren Sky on 06-26-2022 Chloride [Moles/Vol] 104 mmol/L 98-107 [facility] Glucose [Mass/Vol] 224 mg/dL 74-106 [facility] Comment on above: Glucose result great er than or equal to 200 mg/dLsuggests DIABETES MELLITUS per A.D.A. criteria. Potassium [Moles/Vol] 4.6 mmol/L 3.5-5.1 [facility] Sodium [Moles/Vol] 134 mmol/L 136-145 [facility] Basophil percentageOrdered B y: Coreen Gerardo on 06-26-2022 Cholesterol [Mass/Vol] 145 mg/dL <200 [facility] Comment on above: <200 mg/dL Desirable 200-240 mg/dL Borderline >240 mg/dL High Risk Testosterone [Mass/Vol] 122 ng/dL 264-916 [facility] Comment on above: Adult male reference interval is based on a population ofhealthy nonobese males (BMI <30) between 19 and 39 yearsold. Dina et.al. JCEM 2017,102;5490-7653. PMID:[id number]. Triglyceride [Mass/Vol] 271 mg/dL <199 [facility] Comment on above: The drugs N-Acetylcy steine and Metamizole may falsely depress this assay.Serum Triglycerides Reference Interval Normal <150 mg/dL Borderline high 150 - 199 mg/dL High 200 - 499 mg/dL Very High > or = 500 mg/dL Free testosterone percentage Ordered By: Coreen Gerardo on 06-26-2022 Testosterone Free/Testosterone.total [Mass fraction] 3.10 % 1.50-4.20 [facility] Comment on above: Performed at: [place] [facility] [address] [id number] Director: Chance Morales PhD, Phone: [phone] at: - [facility] [id number] [place], [place] [id number] Director: Rhina Norris MD, Phone: [phone] Laboratory - Chemistry and C hemistry - challengeOrdered By: Oren Sky on 06-26-2022 CO2 [Moles/Vol] 23.0 mmol/L 21.0-32.0 [facility] Urea nitrogen/Creatinine [Mass ratio] 30.7 mg/mg 10-20 [facility] Laboratory - Chemistry and C hemistry - challengeOrdered By: Coreen Gerardo on 06-26-2022 Free T4 [Mass/Vol] 1.33 ng/dL 0.76-1.46 [facility] No Panel InformationOrdered By: Oren Sky on 06-26-2022 Estimated GFR (MDRD) Amer 60 mL/min >60 [facility] Comment on above: GFR Calc Estimated GFR (MDRD) Non-Af Amer 50 mL/min >60 [facility] Comment on above: Non- GFR Calc No Panel InformationOrdered By: Coreen Gerardo on 06-26-2022 Thyroid Stimulating Hormone (TSH) 1.59 uIU/mL 0.358-3.74 [facility] Urine Microalbumin/Creatinine Ratio 72.5 mg/g CRE <30 [facility] Serum or plasma calcium grazyna urement (mass/volume)Ordered By: Oren Sky on 06-26-2022 Calcium [Mass/Vol] 9.0 mg/dL 8.5-10.1 [facility] Serum or plasma cholesterol in HDL measurement (mass/volume)Ordered By: Coreen Gerardo on 06-26-2022 Cholesterol in HDL [Mass/Vol] 36 mg/dL >40 [facility] Comment on above: The drugs N-Acetylcy steine and Metamizole may falsely depress this assay. Reference Range HDL <40 mg/dL Low HDL Cholesterol HDL >or= 60 mg/dL High HDL Cholesterol Serum or plasma cholesterol in VLDL measurement (mass/volume)Ordered By: Coreen Gerardo on 06-26-2022 Cholesterol in VLDL [Mass/Vol] 54 mg/dL 5-40 [facility] Serum or plasma creatinine m easurement (mass/volume)Ordered By: Oren Sky on 06-26-2022 Creatinine [Mass/Vol] 1.53 mg/dL 0.70-1.30 [facility] Comment on above: The validity of the calculated GFR & GFRAA in patients over 70 years has not been determined. Clinical correlation is essential. Serum or plasma low density lipoprotein (LDL) cholesterol measurement (mass/volume)Ordered By: Coreen Gerardo on 06-26-2022 Cholesterol in LDL [Mass/Vol] 55 mg/dL 0-130 [facility] Serum or plasma testosterone free measurement (mass/volume)Ordered By: Coreen Gerardo on 06-26-2022 Testosterone Free [Mass/Vol] 3.78 ng/dL 5.00-21.00 [facility] Serum or plasma urea nitroge n measurement (mass/volume)Ordered By: Oren Sky on 06-26-2022 Urea nitrogen [Mass/Vol] 47 mg/dL 7-18 [facility] Thin prep Papanicolaou smear with manual screeningOrdered By: Oren Sky on 06-26-2022 Thin prep Papanicolaou smear with manual screening 7 5-15 [facility] Thin prep Papanicolaou smear with manual screeningOrdered By: Coreen Gerardo on 06-26-2022 Thin prep Papanicolaou smear with manual screening 51.1 mg/L NO RANGE EST. [facility] Urine creatinine measurement (mass/volume)Ordered By: Coreen Gerardo on 06-26-2022 Creatinine (U) [Mass/Vol] 70.50 mg/dL NO RANGE EST. [facility] Laboratory - Hematology and Cell countson 06-18-2022 HbA1c (Bld) [Mass fraction] 8.2 % [facility] Basophil percentageOrdered B y: Lydia Segura on 05-18-2022 Chloride [Moles/Vol] 106 mmol/L 98-107 [facility] Glucose [Mass/Vol] 251 mg/dL 74-106 [facility] Comment on above: Glucose result great er than or equal to 200 mg/dLsuggests DIABETES MELLITUS per A.D.A. criteria. Potassium [Moles/Vol] 3.8 mmol/L 3.5-5.1 [facility] Sodium [Moles/Vol] 135 mmol/L 136-145 [facility] Laboratory - Chemistry and C hemistry - challengeOrdered By: Lydia Segura on 05-18-2022 CO2 [Moles/Vol] 21.0 mmol/L 21.0-32.0 [facility] Urea nitrogen/Creatinine [Mass ratio] 19.4 mg/mg 10-20 [facility] No Panel InformationOrdered By: Lydia Segura on 05-18-2022 Estimated GFR (MDRD) Amer 90 mL/min >60 [facility] Comment on above: GFR Calc Estimated GFR (MDRD) Non-Af Amer 75 mL/min >60 [facility] Comment on above: Non- GFR Calc Serum or plasma calcium grazyna urement (mass/volume)Ordered By: Lydia Segura on 05-18-2022 Calcium [Mass/Vol] 8.6 mg/dL 8.5-10.1 [facility] Serum or plasma creatinine m easurement (mass/volume)Ordered By: Lydia Segura on 05-18-2022 Creatinine [Mass/Vol] 1.08 mg/dL 0.70-1.30 [facility] Comment on above: The validity of the calculated GFR & GFRAA in patients over 70 years has not been determined. Clinical correlation is essential. Serum or plasma urea nitroge n measurement (mass/volume)Ordered By: Lydia Segura on 05-18-2022 Urea nitrogen [Mass/Vol] 21 mg/dL 7-18 [facility] Thin prep Papanicolaou smear with manual screeningOrdered By: Lydia Segura on 05-18-2022 Thin prep Papanicolaou smear with manual screening 8 5-15 [facility] Absolute lymphocyte countOrd ered By: Oren Sky on 04-17-2022 Lymphocytes Auto (Unsp spec) [#/Vol] 2.25 10*3/uL 0.83-4.51 [facility] Basophil percentageOrdered B y: Oren Sky on 04-17-2022 Basophils/100 WBC (Bld) 1.1 % 0-1 [facility] Chloride [Moles/Vol] 102 mmol/L 98-107 [facility] Eosinophils/100 WBC (Bld) 3.3 % 0-5 [facility] Glucose [Mass/Vol] 263 mg/dL 74-106 [facility] Comment on above: Glucose result great er than or equal to 200 mg/dLsuggests DIABETES MELLITUS per A.D.A. criteria. Neutrophils (Bld) [#/Vol] 5.0 10*3/uL 2.0-7.7 [facility] Neutrophils/100 WBC (Bld) 59.8 % 47-70 [facility] Potassium [Moles/Vol] 4.0 mmol/L 3.5-5.1 [facility] Sodium [Moles/Vol] 135 mmol/L 136-145 [facility] WBC (Bld) [#/Vol] 8.4 10*3/uL 4.4-11.0 [facility] Blood erythrocytes count (nu mber/volume)Ordered By: Oren Sky on 04-17-2022 RBC (Bld) [#/Vol] 4.44 10*6/uL 4.6-6.2 [facility] Blood hemoglobin measurement (mass/volume)Ordered By: Oren Sky on 04-17-2022 Hemoglobin (Bld) [Mass/Vol] 11.1 g/dL 13.0-16.5 [facility] Blood lymphocytes/100 leukoc ytesOrdered By: Oren Sky on 04-17-2022 Lymphocytes/100 WBC (Bld) 26.8 % 19-41 [facility] Blood monocytes/100 leukocyt esOrdered By: Oren Sky on 04-17-2022 Monocytes/100 WBC (Bld) 8.6 % 0-10 [facility] Blood platelet mean volumeOr dered By: Oren Sky on 04-17-2022 Platelet mean volume (Bld) [Entitic vol] 10.3 fL 6.2-12.0 [facility] Determination of erythrocyte mean corpuscular volume (MCV)Ordered By: Oren Sky on 04-17-2022 MCV (RBC) [Entitic vol] 80.2 fL 80-94 [facility] Hematocrit Auto (Bld) [Volum e fraction]Ordered By: Oren Sky on 04-17-2022 Hematocrit (Bld) [Volume fraction] 35.6 % 40-54 [facility] Iron measurement (mass/mass) Ordered By: Oren Sky on 04-17-2022 Iron (Unsp spec) [Mass/Mass] 48 ug/dL 65-175 [facility] Laboratory - Chemistry and C hemistry - challengeOrdered By: Oren Sky on 04-17-2022 CO2 [Moles/Vol] 22.0 mmol/L 21.0-32.0 [facility] Natriuretic peptide B (Bld) [Mass/Vol] 37.2 pg/mL 0-100 [facility] Urea nitrogen/Creatinine [Mass ratio] 25.8 mg/mg 10-20 [facility] Laboratory - Hematology and Cell countsOrdered By: Oren Sky on 04-17-2022 Erythrocyte distribution width (RBC) [Entitic vol] 50.0 fL 35.1-43.9 [facility] Erythrocyte distribution width (RBC) [Ratio] 17.2 % 11.6-14.6 [facility] Immature granulocytes/100 WBC (Bld) 0.400 % 0.0-0.9 [facility] Comment on above: IG% - Immature Granu locytes (promyelocytes, myelocytes and metamyelocytes) > 1% indicates that a LEFT SHIFT is Present. MCH (RBC) [Entitic mass] 25.0 pg 27.0-32.0 [facility] Nucleated RBC/100 WBC (Bld) [Ratio] 0 % 0-5 [facility] MCHC Auto (RBC) [Mass/Vol]Or dered By: Oren Sky on 04-17-2022 MCHC (RBC) [Mass/Vol] 31.2 g/dL 32-36 [facility] No Panel InformationOrdered By: Oren Sky on 04-17-2022 Estimated GFR (MDRD) Amer 77 mL/min >60 [facility] Comment on above: GFR Calc Estimated GFR (MDRD) Non-Af Amer 64 mL/min >60 [facility] Comment on above: Non- GFR Calc Total Iron Binding Capacity 350 ug/dL 250-450 [facility] Platelets bldOrdered By: Jose Sky on 04-17-2022 Platelets (Bld) [#/Vol] 268 10*3/uL 150-450 [facility] Serum or plasma calcium grazyna urement (mass/volume)Ordered By: Oren Sky on 04-17-2022 Calcium [Mass/Vol] 8.9 mg/dL 8.5-10.1 [facility] Serum or plasma creatinine m easurement (mass/volume)Ordered By: Oren Sky on 04-17-2022 Creatinine [Mass/Vol] 1.24 mg/dL 0.70-1.30 [facility] Comment on above: The validity of the calculated GFR & GFRAA in patients over 70 years has not been determined. Clinical correlation is essential. Serum or plasma iron saturat ion measurement (mass fraction)Ordered By: Oren Sky on 04-17-2022 Iron saturation [Mass fraction] 13.7 % 15.0-55.0 [facility] Serum or plasma urea nitroge n measurement (mass/volume)Ordered By: Oren Sky on 04-17-2022 Urea nitrogen [Mass/Vol] 32 mg/dL 7-18 [facility] Thin prep Papanicolaou smear with manual screeningOrdered By: Oren Sky on 04-17-2022 Thin prep Papanicolaou smear with manual screening 11 5-15 [facility] Laboratory - Hematology and Cell countson 01-15-2022 HbA1c (Bld) [Mass fraction] 8.3 % [facility] Absolute lymphocyte counton 09-04-2021 Lymphocytes Auto (Unsp spec) [#/Vol] 1.59 10*3/uL 0.83-4.51 [facility] Work Phone: Basophil percentageon 2021 Basophils/100 WBC (Bld) 0.5 % 0-1 [facility] Work Phone: Bilirubin [Mass/Vol] 0.60 mg/dL 0.20-1.00 [facility] Work Phone: Comment on above: For patients on eltr ombopag therapy, use of Dimension [place] TBIL is not recommended. Chloride [Moles/Vol] 107 mmol/L 98-107 [facility] Work Phone: Eosinophils/100 WBC (Bld) 3.6 % 0-5 [facility] Work Phone: Glucose [Mass/Vol] 174 mg/dL 74-106 [facility] Work Phone: Comment on above: Fasting Glucose resu lt greater than or equal to 126 mg/dL suggests DIABETES MELLITUS per A.D.A. criteria. Neutrophils (Bld) [#/Vol] 4.8 10*3/uL 2.0-7.7 [facility] Work Phone: Neutrophils/100 WBC (Bld) 63.3 % 47-70 [facility] Work Phone: Potassium [Moles/Vol] 4.0 mmol/L 3.5-5.1 [facility] Work Phone: Protein [Mass/Vol] 7.6 g/dL 6.4-8.2 [facility] Work Phone: Sodium [Moles/Vol] 138 mmol/L 136-145 [facility] Work Phone: WBC (Bld) [#/Vol] 7.5 10*3/uL 4.4-11.0 [facility] Work Phone: Blood erythrocytes count (nu mber/volume)on 09-04-2021 RBC (Bld) [#/Vol] 4.26 10*6/uL 4.6-6.2 [facility] Work Phone: Blood hemoglobin measurement (mass/volume)on 09-04-2021 Hemoglobin (Bld) [Mass/Vol] 11.0 g/dL 13.0-16.5 [facility] Work Phone: Blood lymphocytes/100 leukoc yteson 09-04-2021 Lymphocytes/100 WBC (Bld) 21.2 % 19-41 [facility] Work Phone: Blood monocytes/100 leukocyt eson 09-04-2021 Monocytes/100 WBC (Bld) 10.7 % 0-10 [facility] Work Phone: Blood platelet mean volumeon 09-04-2021 Platelet mean volume (Bld) [Entitic vol] 10.2 fL 6.2-12.0 [facility] Work Phone: [phone] Determination of erythrocyte mean corpuscular volume (MCV)on 09-04-2021 MCV (RBC) [Entitic vol] 81.5 fL 80-94 [facility] Work Phone: [phone] Hematocrit Auto (Bld) [Volum e fraction]on 09-04-2021 Hematocrit (Bld) [Volume fraction] 34.7 % 40-54 [facility] Work Phone: [phone] Laboratory - Chemistry and C hemistry - challengeon 09-04-2021 ALP [Catalytic activity/Vol] 92 U/L 45-117 [facility] Work Phone: [phone] ALT [Catalytic activity/Vol] 23 U/L 16-61 [facility] Work Phone: [phone] CO2 [Moles/Vol] 26.0 mmol/L 21.0-32.0 [facility] Work Phone: [phone] Globulin (S) [Mass/Vol] 4.5 g/dL 2.2-4.2 [facility] Work Phone: [phone] Natriuretic peptide B (Bld) [Mass/Vol] 105.8 pg/mL 0-100 [facility] Work Phone: [phone] Urea nitrogen/Creatinine [Mass ratio] 25.2 mg/mg 10-20 [facility] Work Phone: [phone] Laboratory - Hematology and Cell countson 09-04-2021 Erythrocyte distribution width (RBC) [Entitic vol] 46.4 fL 35.1-43.9 [facility] Work Phone: [phone] Erythrocyte distribution width (RBC) [Ratio] 15.7 % 11.6-14.6 [facility] Work Phone: [phone] Immature granulocytes/100 WBC (Bld) 0.700 % 0.0-0.9 [facility] Work Phone: [phone] Comment on above: IG% - Immature Granu locytes (promyelocytes, myelocytes and metamyelocytes) > 1% indicates that a LEFT SHIFT is Present. MCH (RBC) [Entitic mass] 25.8 pg 27.0-32.0 [facility] Work Phone: Nucleated RBC/100 WBC (Bld) [Ratio] 0 % 0-5 [facility] Work Phone: MCHC Auto (RBC) [Mass/Vol]on 09-04-2021 MCHC (RBC) [Mass/Vol] 31.7 g/dL 32-36 [facility] Work Phone: No Panel Informationon 09-04 Troponin I High Sensitivity 16 pg/mL 3.0-78.0 [facility] Work Phone: Comment on above: Please Note: New Karly t Units and Gender Specific Reference Ranges. For more information see Policy Stat Procedure [place] High Sensitivity Troponin (TNIH) and attachments. Estimated Creatinine Clearance Calc 92.55 ml/min [facility] Work Phone: Estimated GFR (MDRD) Amer 115 mL/min >60 [facility] Work Phone: Comment on above: GFR Calc Estimated GFR (MDRD) Non-Af Amer 95 mL/min >60 [facility] Work Phone: Comment on above: Non- GFR Calc Platelets bldon 09-04-2021 Platelets (Bld) [#/Vol] 200 10*3/uL 150-450 [facility] Work Phone: [phone] Serum or plasma albumin grazyna urement (mass/volume)on 09-04-2021 Albumin [Mass/Vol] 3.1 g/dL 3.2-5.0 [facility] Work Phone: [phone] Serum or plasma albumin/glob ulin mass ratioon 09-04-2021 Albumin/Globulin [Mass ratio] 0.7 {ratio} 0.9-2.4 [facility] Work Phone: [phone] Serum or plasma calcium grazyna urement (mass/volume)on 09-04-2021 Calcium [Mass/Vol] 8.5 mg/dL 8.5-10.1 [facility] Work Phone: [phone] Serum or plasma creatinine m easurement (mass/volume)on 09-04-2021 Creatinine [Mass/Vol] 0.87 mg/dL 0.70-1.30 [facility] Work Phone: Comment on above: The validity of the calculated GFR & GFRAA in patients over 70 years has not been determined. Clinical correlation is essential. Serum or plasma urea nitroge n measurement (mass/volume)on 09-04-2021 Urea nitrogen [Mass/Vol] 22 mg/dL 7-18 [facility] Work Phone: Thin prep Papanicolaou smear with manual screeningon 09-04-2021 Thin prep Papanicolaou smear with manual screening 18 U/L 15-37 [facility] Work Phone: Thin prep Papanicolaou smear with manual screening 5 5-15 [facility] Work Phone: Absolute lymphocyte counton 07-16-2021 Lymphocytes Auto (Unsp spec) [#/Vol] 1.10 10*3/uL 0.83-4.51 [facility] Work Phone: Basophil percentageon 2021 Basophils/100 WBC (Bld) 0.7 % 0-1 [facility] Work Phone: Chloride [Moles/Vol] 105 mmol/L 98-107 [facility] Work Phone: Eosinophils/100 WBC (Bld) 3.2 % 0-5 [facility] Work Phone: Glucose [Mass/Vol] 283 mg/dL 74-106 [facility] Work Phone: Comment on above: Glucose result great er than or equal to 200 mg/dLsuggests DIABETES MELLITUS per A.D.A. criteria. Neutrophils (Bld) [#/Vol] 6.8 10*3/uL 2.0-7.7 [facility] Work Phone: Neutrophils/100 WBC (Bld) 76.6 % 47-70 [facility] Work Phone: Potassium [Moles/Vol] 3.9 mmol/L 3.5-5.1 [facility] Work Phone: Sodium [Moles/Vol] 138 mmol/L 136-145 [facility] Work Phone: [phone] WBC (Bld) [#/Vol] 8.8 10*3/uL 4.4-11.0 [facility] Work Phone: [phone] Blood erythrocytes count (nu mber/volume)on 07-16-2021 RBC (Bld) [#/Vol] 4.49 10*6/uL 4.6-6.2 [facility] Work Phone: [phone] Blood hemoglobin measurement (mass/volume)on 07-16-2021 Hemoglobin (Bld) [Mass/Vol] 11.8 g/dL 13.0-16.5 [facility] Work Phone: [phone] Blood lymphocytes/100 leukoc yteson 07-16-2021 Lymphocytes/100 WBC (Bld) 12.5 % 19-41 [facility] Work Phone: [phone] Blood monocytes/100 leukocyt eson 07-16-2021 Monocytes/100 WBC (Bld) 6.7 % 0-10 [facility] Work Phone: [phone] Blood platelet mean volumeon 07-16-2021 Platelet mean volume (Bld) [Entitic vol] 10.2 fL 6.2-12.0 [facility] Work Phone: [phone] Determination of erythrocyte mean corpuscular volume (MCV)on 07-16-2021 MCV (RBC) [Entitic vol] 82.9 fL 80-94 [facility] Work Phone: [phone] Hematocrit Auto (Bld) [Volum e fraction]on 07-16-2021 Hematocrit (Bld) [Volume fraction] 37.2 % 40-54 [facility] Work Phone: [phone] Laboratory - Chemistry and C hemistry - challengeon 07-16-2021 CO2 [Moles/Vol] 24.0 mmol/L 21.0-32.0 [facility] Work Phone: [phone] Natriuretic peptide B (Bld) [Mass/Vol] 59.2 pg/mL 0-100 [facility] Work Phone: [phone] Urea nitrogen/Creatinine [Mass ratio] 17.5 mg/mg 10-20 [facility] Work Phone: [phone] Laboratory - Hematology and Cell countson 07-16-2021 Erythrocyte distribution width (RBC) [Entitic vol] 47.2 fL 35.1-43.9 [facility] Work Phone: [phone] Erythrocyte distribution width (RBC) [Ratio] 15.9 % 11.6-14.6 [facility] Work Phone: [phone] Immature granulocytes/100 WBC (Bld) 0.300 % 0.0-0.9 [facility] Work Phone: [phone] Comment on above: IG% - Immature Granu locytes (promyelocytes, myelocytes and metamyelocytes) > 1% indicates that a LEFT SHIFT is Present. MCH (RBC) [Entitic mass] 26.3 pg 27.0-32.0 [facility] Work Phone: [phone] Nucleated RBC/100 WBC (Bld) [Ratio] 0 % 0-5 [facility] Work Phone: [phone] MCHC Auto (RBC) [Mass/Vol]on 07-16-2021 MCHC (RBC) [Mass/Vol] 31.7 g/dL 32-36 [facility] Work Phone: No Panel Informationon 07-16 Estimated Creatinine Clearance Calc 64.68 ml/min [facility] Work Phone: [phone] Estimated GFR (MDRD) Amer 76 mL/min >60 [facility] Work Phone: [phone] Comment on above: GFR Calc Estimated GFR (MDRD) Non-Af Amer 63 mL/min >60 [facility] Work Phone: [phone] Comment on above: Non- GFR Calc Troponin I High Sensitivity 10 pg/mL 3.0-78.0 [facility] Work Phone: [phone] Comment on above: Please Note: New Karly t Units and Gender Specific Reference Ranges. For more information see Policy Stat Procedure [place] High Sensitivity Troponin (TNIH) and attachments. Platelets bldon 07-16-2021 Platelets (Bld) [#/Vol] 209 10*3/uL 150-450 [facility] Work Phone: Serum or plasma calcium grazyna urement (mass/volume)on 07-16-2021 Calcium [Mass/Vol] 8.7 mg/dL 8.5-10.1 [facility] Work Phone: Serum or plasma creatinine m easurement (mass/volume)on 07-16-2021 Creatinine [Mass/Vol] 1.26 mg/dL 0.70-1.30 [facility] Work Phone: Comment on above: The validity of the calculated GFR & GFRAA in patients over 70 years has not been determined. Clinical correlation is essential. Serum or plasma urea nitroge n measurement (mass/volume)on 07-16-2021 Urea nitrogen [Mass/Vol] 22 mg/dL 7-18 [facility] Work Phone: Thin prep Papanicolaou smear with manual screeningon 07-16-2021 Thin prep Papanicolaou smear with manual screening 9 5-15 [facility] Work Phone: Absolute lymphocyte counton 07-12-2021 Lymphocytes Auto (Unsp spec) [#/Vol] 1.80 10*3/uL 0.83-4.51 [facility] Work Phone: Basophil percentageon 2021 Basophils/100 WBC (Bld) 0.9 % 0-1 [facility] Work Phone: Chloride [Moles/Vol] 103 mmol/L 98-107 [facility] Work Phone: Eosinophils/100 WBC (Bld) 5.6 % 0-5 [facility] Work Phone: Glucose [Mass/Vol] 182 mg/dL 74-106 [facility] Work Phone: Comment on above: Fasting Glucose resu lt greater than or equal to 126 mg/dL suggests DIABETES MELLITUS per A.D.A. criteria. Neutrophils (Bld) [#/Vol] 5.1 10*3/uL 2.0-7.7 [facility] Work Phone: Neutrophils/100 WBC (Bld) 61.8 % 47-70 [facility] Work Phone: Potassium [Moles/Vol] 3.6 mmol/L 3.5-5.1 [facility] Work Phone: Sodium [Moles/Vol] 135 mmol/L 136-145 [facility] Work Phone: WBC (Bld) [#/Vol] 8.2 10*3/uL 4.4-11.0 [facility] Work Phone: Blood erythrocytes count (nu mber/volume)on 07-12-2021 RBC (Bld) [#/Vol] 4.31 10*6/uL 4.6-6.2 [facility] Work Phone: Blood hemoglobin measurement (mass/volume)on 07-12-2021 Hemoglobin (Bld) [Mass/Vol] 11.1 g/dL 13.0-16.5 [facility] Work Phone: Blood lymphocytes/100 leukoc yteson 07-12-2021 Lymphocytes/100 WBC (Bld) 22.0 % 19-41 [facility] Work Phone: Blood monocytes/100 leukocyt eson 07-12-2021 Monocytes/100 WBC (Bld) 9.3 % 0-10 [facility] Work Phone: Blood platelet mean volumeon 07-12-2021 Platelet mean volume (Bld) [Entitic vol] 10.2 fL 6.2-12.0 [facility] Work Phone: Determination of erythrocyte mean corpuscular volume (MCV)on 07-12-2021 MCV (RBC) [Entitic vol] 80.5 fL 80-94 [facility] Work Phone: Hematocrit Auto (Bld) [Volum e fraction]on 07-12-2021 Hematocrit (Bld) [Volume fraction] 34.7 % 40-54 [facility] Work Phone: [phone] Laboratory - Chemistry and C hemistry - challengeon 07-12-2021 CO2 [Moles/Vol] 24.0 mmol/L 21.0-32.0 [facility] Work Phone: [phone] Natriuretic peptide B (Bld) [Mass/Vol] 93.4 pg/mL 0-100 [facility] Work Phone: [phone] Urea nitrogen/Creatinine [Mass ratio] 22.0 mg/mg 10-20 [facility] Work Phone: [phone] Laboratory - Hematology and Cell countson 07-12-2021 Erythrocyte distribution width (RBC) [Entitic vol] 45.5 fL 35.1-43.9 [facility] Work Phone: [phone] Erythrocyte distribution width (RBC) [Ratio] 15.9 % 11.6-14.6 [facility] Work Phone: [phone] Immature granulocytes/100 WBC (Bld) 0.400 % 0.0-0.9 [facility] Work Phone: [phone] Comment on above: IG% - Immature Granu locytes (promyelocytes, myelocytes and metamyelocytes) > 1% indicates that a LEFT SHIFT is Present. MCH (RBC) [Entitic mass] 25.8 pg 27.0-32.0 [facility] Work Phone: [phone] Nucleated RBC/100 WBC (Bld) [Ratio] 0 % 0-5 [facility] Work Phone: [phone] MCHC Auto (RBC) [Mass/Vol]on 07-12-2021 MCHC (RBC) [Mass/Vol] 32.0 g/dL 32-36 [facility] Work Phone: [phone] No Panel Informationon 07-12 Estimated GFR (MDRD) Amer 99 mL/min >60 [facility] Work Phone: [phone] Comment on above: GFR Calc Estimated GFR (MDRD) Non-Af Amer 82 mL/min >60 [facility] Work Phone: [phone] Comment on above: Non- GFR Calc Thyroid Stimulating Hormone (TSH) 1.06 uIU/mL 0.358-3.74 [facility] Work Phone: Platelets bldon 07-12-2021 Platelets (Bld) [#/Vol] 223 10*3/uL 150-450 [facility] Work Phone: Serum or plasma calcium grazyna urement (mass/volume)on 07-12-2021 Calcium [Mass/Vol] 8.6 mg/dL 8.5-10.1 [facility] Work Phone: Serum or plasma creatinine m easurement (mass/volume)on 07-12-2021 Creatinine [Mass/Vol] 1.00 mg/dL 0.70-1.30 [facility] Work Phone: Comment on above: The validity of the calculated GFR & GFRAA in patients over 70 years has not been determined. Clinical correlation is essential. Serum or plasma urea nitroge n measurement (mass/volume)on 07-12-2021 Urea nitrogen [Mass/Vol] 22 mg/dL 7-18 [facility] Work Phone: Thin prep Papanicolaou smear with manual screeningon 07-12-2021 Thin prep Papanicolaou smear with manual screening 8 5-15 [facility] Work Phone: Laboratory - Hematology and Cell countson 06-29-2021 HbA1c (Bld) [Mass fraction] 8.9 % [facility] Work Phone: Absolute lymphocyte counton 06-19-2021 Lymphocytes Auto (Unsp spec) [#/Vol] 1.28 10*3/uL 0.83-4.51 [facility] Work Phone: Basophil percentageon 2021 Lactate [Moles/Vol] 2.1 mmol/L 0.4-2.0 [facility] Work Phone: Comment on above: Critical Result(s) C alled at: 14:08:57 06/19/2021 by: Danae Zaldivar to Marlen. Results read back by same. Basophil percentage 0 SEEN /hpf 0-5 [facility] Work Phone: Basophils/100 WBC (Bld) 0.5 % 0-1 [facility] Work Phone: Chloride [Moles/Vol] 104 mmol/L 98-107 [facility] Work Phone: Eosinophils/100 WBC (Bld) 2.6 % 0-5 [facility] Work Phone: Glucose [Mass/Vol] 191 mg/dL 74-106 [facility] Work Phone: Comment on above: Fasting Glucose resu lt greater than or equal to 126 mg/dL suggests DIABETES MELLITUS per A.D.A. criteria. Neutrophils (Bld) [#/Vol] 5.1 10*3/uL 2.0-7.7 [facility] Work Phone: Neutrophils/100 WBC (Bld) 69.5 % 47-70 [facility] Work Phone: Potassium [Moles/Vol] 3.9 mmol/L 3.5-5.1 [facility] Work Phone: Sodium [Moles/Vol] 137 mmol/L 136-145 [facility] Work Phone: WBC (Bld) [#/Vol] 7.4 10*3/uL 4.4-11.0 [facility] Work Phone: Bilirubin Test strip Ql (U)o n 06-19-2021 Bilirubin Ql (U) Negative Negative [facility] Work Phone: Blood erythrocytes count (nu mber/volume)on 06-19-2021 RBC (Bld) [#/Vol] 4.54 10*6/uL 4.6-6.2 [facility] Work Phone: Blood hemoglobin measurement (mass/volume)on 06-19-2021 Hemoglobin (Bld) [Mass/Vol] 12.0 g/dL 13.0-16.5 [facility] Work Phone: Blood lymphocytes/100 leukoc yteson 06-19-2021 Lymphocytes/100 WBC (Bld) 17.3 % 19-41 [facility] Work Phone: Blood monocytes/100 leukocyt eson 06-19-2021 Monocytes/100 WBC (Bld) 9.6 % 0-10 [facility] Work Phone: Blood platelet mean volumeon 06-19-2021 Platelet mean volume (Bld) [Entitic vol] 9.7 fL 6.2-12.0 [facility] Work Phone: Determination of erythrocyte mean corpuscular volume (MCV)on 06-19-2021 MCV (RBC) [Entitic vol] 79.7 fL 80-94 [facility] Work Phone: Hematocrit Auto (Bld) [Volum e fraction]on 06-19-2021 Hematocrit (Bld) [Volume fraction] 36.2 % 40-54 [facility] Work Phone: Ketones Test strip Ql (U)on 06-19-2021 Ketones Ql (U) Negative Negative [facility] Work Phone: Laboratory - Chemistry and C hemistry - challengeon 06-19-2021 CO2 [Moles/Vol] 26.0 mmol/L 21.0-32.0 [facility] Work Phone: Natriuretic peptide B (Bld) [Mass/Vol] 155.0 pg/mL 0-100 [facility] Work Phone: Urea nitrogen/Creatinine [Mass ratio] 14.6 mg/mg 10-20 [facility] Work Phone: Laboratory - Hematology and Cell countson 06-19-2021 Erythrocyte distribution width (RBC) [Entitic vol] 43.1 fL 35.1-43.9 [facility] Work Phone: Erythrocyte distribution width (RBC) [Ratio] 15.0 % 11.6-14.6 [facility] Work Phone: Immature granulocytes/100 WBC (Bld) 0.500 % 0.0-0.9 [facility] Work Phone: [phone] Comment on above: IG% - Immature Granu locytes (promyelocytes, myelocytes and metamyelocytes) > 1% indicates that a LEFT SHIFT is Present. MCH (RBC) [Entitic mass] 26.4 pg 27.0-32.0 [facility] Work Phone: [phone] Nucleated RBC/100 WBC (Bld) [Ratio] 0 % 0-5 [facility] Work Phone: [phone] MCHC Auto (RBC) [Mass/Vol]on 06-19-2021 MCHC (RBC) [Mass/Vol] 33.1 g/dL 32-36 [facility] Work Phone: [phone] Mucus LM Ql (Urine sed)on Mucus Ql (Urine sed) 0 SEEN /hpf [facility] Work Phone: [phone] Nitrite Test strip Ql (U)on 06-19-2021 Nitrite Ql (U) Negative Negative [facility] Work Phone: [phone] Panel Informationon 06-19 Troponin I High Sensitivity 31 pg/mL 3.0-78.0 [facility] Work Phone: [phone] Comment on above: Please Note: New Karly t Units and Gender Specific Reference Ranges. For more information see Policy Stat Procedure [place] High Sensitivity Troponin (TNIH) and attachments. Estimated Creatinine Clearance Calc 84.90 ml/min [facility] Work Phone: [phone] Estimated GFR (MDRD) Amer 104 mL/min >60 [facility] Work Phone: [phone] Comment on above: GFR Calc Estimated GFR (MDRD) Non-Af Amer 86 mL/min >60 [facility] Work Phone: [phone] Comment on above: Non- GFR Calc Platelets bldon 06-19-2021 Platelets (Bld) [#/Vol] 216 10*3/uL 150-450 [facility] Work Phone: [phone] Protein Test strip Ql (U)on 06-19-2021 Protein Ql (U) 30 mg/dl Negative [facility] Work Phone: Serum or plasma calcium grazyna urement (mass/volume)on 06-19-2021 Calcium [Mass/Vol] 8.8 mg/dL 8.5-10.1 [facility] Work Phone: Serum or plasma creatinine m easurement (mass/volume)on 06-19-2021 Creatinine [Mass/Vol] 0.96 mg/dL 0.70-1.30 [facility] Work Phone: Comment on above: The validity of the calculated GFR & GFRAA in patients over 70 years has not been determined. Clinical correlation is essential. Serum or plasma urea nitroge n measurement (mass/volume)on 06-19-2021 Urea nitrogen [Mass/Vol] 14 mg/dL 7-18 [facility] Work Phone: Squamous epithelial cells de tection in urine sediment by light microscopyon 06-19-2021 Epithelial cells.squamous LM Ql (Urine sed) 0 SEEN /hpf 0-5 [facility] Work Phone: Thin prep Papanicolaou smear with manual screeningon 06-19-2021 Thin prep Papanicolaou smear with manual screening 7 5-15 [facility] Work Phone: Urine blood detectionon 05-31 RBC Ql (U) Negative Negative [facility] Work Phone: RBC Ql (U) 0 SEEN /hpf 0-5 [facility] Work Phone: Urine clarityon 06-19-2021 Clarity (U) Clear Clear [facility] Work Phone: Urine color determinationon 06-19-2021 Color (U) Yellow Yellow [facility] Work Phone: [phone] Urine glucose detectionon Glucose Ql (U) Normal mg/dl Normal [facility] Work Phone: Urine leukocyte esterase det ection by dipstickon 06-19-2021 Leukocyte esterase Test strip Ql (U) Negative Negative [facility] Work Phone: Urine pHon 06-19-2021 pH (U) 6.0 [pH] 5.0 - 8.0 [facility] Work Phone: Urine sediment bacteria coun t by microscopy (number/high power field)on 06-19-2021 Bacteria LM.HPF (Urine sed) [#/Area] 0 /[HPF] None Seen [facility] Work Phone: Urine specific gravity measu rementon 06-19-2021 Specific gravity (U) [Rel density] 1.015 1.002-1.03 0 [facility] Work Phone: Urobilinogen Auto test strip Ql (U)on 06-19-2021 Urobilinogen Ql (U) Normal mg/dl Normal [facility] Work Phone: No Panel Informationon 06-02 Urine Microalbumin/Creatinine Ratio 40.2 mg/g CRE <30 [facility] Work Phone: Thin prep Papanicolaou smear with manual screeningon 06-02-2021 Thin prep Papanicolaou smear with manual screening 22.8 mg/L NO RANGE EST. [facility] Work Phone: Urine creatinine measurement (mass/volume)on 06-02-2021 Creatinine (U) [Mass/Vol] 56.70 mg/dL NO RANGE EST. [facility] Work Phone: Basophil percentageon 2021 Bilirubin [Mass/Vol] 0.40 mg/dL 0.20-1.00 [facility] Work Phone: [phone] Comment on above: For patients on eltr ombopag therapy, use of Dimension [place] TBIL is not recommended. Chloride [Moles/Vol] 102 mmol/L 98-107 [facility] Work Phone: [phone] Cholesterol [Mass/Vol] 189 mg/dL <200 [facility] Work Phone: [phone] Comment on above: <200 mg/dL Desirable 200-240 mg/dL Borderline >240 mg/dL High Risk Glucose [Mass/Vol] 285 mg/dL 74-106 [facility] Work Phone: [phone] Comment on above: Glucose result great er than or equal to 200 mg/dLsuggests DIABETES MELLITUS per A.D.A. criteria. Potassium [Moles/Vol] 4.1 mmol/L 3.5-5.1 [facility] Work Phone: [phone] Protein [Mass/Vol] 8.1 g/dL 6.4-8.2 [facility] Work Phone: [phone] Sodium [Moles/Vol] 133 mmol/L 136-145 [facility] Work Phone: [phone] Triglyceride [Mass/Vol] 526 mg/dL <199 [facility] Work Phone: [phone] Comment on above: The drugs N-Acetylcy steine [...] 06-01-2021 ALP [Catalytic activity/Vol] 96 U/L 45-117 [facility] Work Phone: [phone] ALT [Catalytic activity/Vol] 31 U/L 16-61 [facility] Work Phone: [phone] CO2 [Moles/Vol] 24.0 mmol/L 21.0-32.0 [facility] Work Phone: [phone] Globulin (S) [Mass/Vol] 4.6 g/dL 2.2-4.2 [facility] Work Phone: [phone] Urea nitrogen/Creatinine [Mass ratio] 22.3 mg/mg 10-20 [facility] Work Phone: [phone] Laboratory - Hematology and Cell countson 06-01-2021 HbA1c (Bld) [Mass fraction] 9.3 % [facility] Work Phone: [phone] No Panel Informationon 06-01 Estimated GFR (MDRD) Amer 73 mL/min >60 [facility] Work Phone: [phone] Comment on above: GFR Calc Estimated GFR (MDRD) Non-Af Amer 60 mL/min >60 [facility] Work Phone: Comment on above: Non- GFR Calc Serum or plasma albumin grazyna urement (mass/volume)on 06-01-2021 Albumin [Mass/Vol] 3.5 g/dL 3.2-5.0 [facility] Work Phone: Serum or plasma albumin/glob ulin mass ratioon 06-01-2021 Albumin/Globulin [Mass ratio] 0.8 {ratio} 0.9-2.4 [facility] Work Phone: Serum or plasma calcium grazyna urement (mass/volume)on 06-01-2021 Calcium [Mass/Vol] 9.1 mg/dL 8.5-10.1 [facility] Work Phone: Serum or plasma cholesterol in HDL measurement (mass/volume)on 06-01-2021 Cholesterol in HDL [Mass/Vol] 33 mg/dL >40 [facility] Work Phone: Comment on above: The drugs N-Acetylcy steine and Metamizole may falsely depress this assay. Reference Range HDL <40 mg/dL Low HDL Cholesterol HDL >or= 60 mg/dL High HDL Cholesterol Serum or plasma cholesterol in VLDL measurement (mass/volume)on 06-01-2021 Cholesterol in VLDL [Mass/Vol] [facility] Work Phone: Comment on above: Test not performed Serum or plasma creatinine m easurement (mass/volume)on 06-01-2021 Creatinine [Mass/Vol] 1.30 mg/dL 0.70-1.30 [facility] Work Phone: Comment on above: The validity of the calculated GFR & GFRAA in patients over 70 years has not been determined. Clinical correlation is essential. Serum or plasma low density lipoprotein (LDL) cholesterol measurement (mass/volume)on 06-01-2021 Cholesterol in LDL [Mass/Vol] [facility] Work Phone: Comment on above: Test not performed Serum or plasma urea nitroge n measurement (mass/volume)on 06-01-2021 Urea nitrogen [Mass/Vol] 29 mg/dL 7-18 [facility] Work Phone: Thin prep Papanicolaou smear with manual screeningon 06-01-2021 Thin prep Papanicolaou smear with manual screening 24 U/L 15-37 [facility] Work Phone: Thin prep Papanicolaou smear with manual screening 7 5-15 [facility] Work Phone: Absolute lymphocyte counton 05-30-2021 Lymphocytes Auto (Unsp spec) [#/Vol] 1.58 10*3/uL 0.83-4.51 [facility] Work Phone: Basophil percentageon 2021 Basophils/100 WBC (Bld) 0.7 % 0-1 [facility] Work Phone: Eosinophils/100 WBC (Bld) 2.4 % 0-5 [facility] Work Phone: Neutrophils (Bld) [#/Vol] 4.4 10*3/uL 2.0-7.7 [facility] Work Phone: Neutrophils/100 WBC (Bld) 64.8 % 47-70 [facility] Work Phone: WBC (Bld) [#/Vol] 6.7 10*3/uL 4.4-11.0 [facility] Work Phone: Blood erythrocytes count (nu mber/volume)on 05-30-2021 RBC (Bld) [#/Vol] 4.54 10*6/uL 4.6-6.2 [facility] Work Phone: Blood hemoglobin measurement (mass/volume)on 05-30-2021 Hemoglobin (Bld) [Mass/Vol] 11.9 g/dL 13.0-16.5 [facility] Work Phone: Blood lymphocytes/100 leukoc yteson 05-30-2021 Lymphocytes/100 WBC (Bld) 23.4 % 19-41 [facility] Work Phone: Blood monocytes/100 leukocyt eson 05-30-2021 Monocytes/100 WBC (Bld) 8.6 % 0-10 [facility] Work Phone: [phone] Blood platelet mean volumeon 05-30-2021 Platelet mean volume (Bld) [Entitic vol] 10.7 fL 6.2-12.0 [facility] Work Phone: [phone] Determination of erythrocyte mean corpuscular volume (MCV)on 05-30-2021 MCV (RBC) [Entitic vol] 81.3 fL 80-94 [facility] Work Phone: [phone] Hematocrit Auto (Bld) [Volum e fraction]on 05-30-2021 Hematocrit (Bld) [Volume fraction] 36.9 % 40-54 [facility] Work Phone: [phone] Laboratory - Hematology and Cell countson 05-30-2021 Erythrocyte distribution width (RBC) [Entitic vol] 46.5 fL 35.1-43.9 [facility] Work Phone: [phone] Erythrocyte distribution width (RBC) [Ratio] 15.6 % 11.6-14.6 [facility] Work Phone: [phone] Immature granulocytes/100 WBC (Bld) 0.100 % 0.0-0.9 [facility] Work Phone: [phone] Comment on above: IG% - Immature Granu locytes (promyelocytes, myelocytes and metamyelocytes) > 1% indicates that a LEFT SHIFT is Present. MCH (RBC) [Entitic mass] 26.2 pg 27.0-32.0 [facility] Work Phone: [phone] Nucleated RBC/100 WBC (Bld) [Ratio] 0 % 0-5 [facility] Work Phone: [phone] MCHC Auto (RBC) [Mass/Vol]on 05-30-2021 MCHC (RBC) [Mass/Vol] 32.2 g/dL 32-36 [facility] Work Phone: [phone] No Panel Informationon 05-30 Thyroid Stimulating Hormone (TSH) 1.24 uIU/mL 0.358-3.74 [facility] Work Phone: Platelets bldon 05-30-2021 Platelets (Bld) [#/Vol] 201 10*3/uL 150-450 [facility] Work Phone: Final Surgical Pathology Rep shruthi 08-11-2018 Final Surgical Pathology Report . Pathology Reports Accession: Collected Date/Time: Received Date/Time: Pathologist: [id number] 08/07/2018 14:48 EDT 08/08/2018 14:48 EDT URBAN [...] formalin labeled right colon polyp are multiple atknis glistening soft tissues ranging from 0.2 to 0.4 cm. TS -1 Dictated by Talita GRIFFITHS ([facility]) MICROSCOPIC DESCRIPTION: A-B Slides reviewed. Electronically Signed by Pathology Report verified by [facility] Electronically signed by URBAN BILLINGS Sign out Date: 08/11/2018 15:23 Performing Lab: [facility], [address] [place] [address] ([place]) Comment on above: Performed By: #### S PFR #### [place] [address] Otheron 12-28-2010 CONVERTED CLINICAL HISTORY OPERATIVE PROCEDURE: V arthroscopy, partial medial meniscectomy rt knee CLINICAL INFORMATION: Partial medial meniscal tear rt knee [facility] CONVERTED ELECTRONIC SIGNATURE OCHOA SPENCER M.D., PATHOLOGIST (Electronic signature on file) Final Signed Out: 12/28/2010 13:12 [facility] CONVERTED FINAL DIAGNOSIS FINAL DIAGNOSIS: RIGHT KNEE, INTRAARTICULAR SHAVINGS - FIBROCARTILAGE WITH DEGENERATIVE CHANGES. SPECIMEN: SHAVINGS, KNEE [facility] CONVERTED GROSS DESCRIPTION GROSS DESCRIPTION: Intra-articular shavings rt knee Container labeled shavings right knee. Received in a cloth sock are portions of yellow-white fibrocartilaginous tissue measuring 2 x 2 x 1 cm in aggregate. A mechanical service representative sample is submitted in a single cassette. SMS/lrs MICROSCOPIC DESCRIPTION: Slides reviewed. EDS/gpl [facility] CONVERTED ORDERING PROVIDER Ordering Provider: KARLOS AQUINO [facility] Vital Signs Date Time Vital Sign Value Performing Clinician Facility 09-26-2024 18:10-0400 Body temperature 97.8 [degF] Dr. Radha Khan MD Work Phone: [facility] 09-26-2024 18:10-0400 Diastolic blood pressure 64 mm[Hg] Dr. Radha Khan MD Work Phone: [facility] 09-26-2024 18:10-0400 Heart rate 74 /min Dr. Radha Khan MD Work Phone: [facility] 09-26-2024 18:10-0400 Respiratory rate 26 /min Dr. Radha Khan MD Work Phone: [facility] 09-26-2024 18:10-0400 SaO2% (BldA) [Mass fraction] 94 % Dr. Radha Khan MD Work Phone: [facility] 09-26-2024 18:10-0400 Systolic blood pressure 133 mm[Hg] Dr. Radha Khan MD Work Phone: [facility] 09-26-2024 17:19-0400 Inhaled oxygen flow rate 4 L/min Dr. Radha Khan MD Work Phone: [facility] 09-26-2024 15:29-0400 Body height 175.[address] Radha Khan MD Work Phone: [facility] 09-24-2024 09:03-0400 Diastolic blood pressure 69 mm[Hg] Dick Nguyen MD Work Phone: [facility] 09-24-2024 09:03-0400 Systolic blood pressure 100 mm[Hg] Dick Nguyen MD Work Phone: [facility] 09-24-2024 08:55-0400 Body temperature 96.8 [degF] Dick Nguyen MD Work Phone: [facility] 09-24-2024 08:55-0400 Heart rate 57 /min Dick Nguyen MD Work Phone: [facility] 09-24-2024 08:55-0400 Respiratory rate 29 /min Dick Nguyen MD Work Phone: [facility] 09-24-2024 08:55-0400 SaO2% (BldA) [Mass fraction] 96 % Dick Nguyen MD Work Phone: [facility] 09-24-2024 06:54-0400 Body height 175.3 cm Dick Nguyen MD Work Phone: [facility] 09-24-2024 06:54-0400 Body mass index (BMI) [Ratio] 47.85 kg/m2 Dick Nguyen MD Work Phone: [facility] 09-24-2024 06:54-0400 Body weight 146.97 kg Dick Nguyen MD Work Phone: [facility] 09-16-2024 10:01-0400 Body height 175.[address] Radha Khan MD Work Phone: [facility] 09-16-2024 10:01-0400 Body mass index (BMI) [Ratio] 48.1 kg/m2 Dr. Radha Khan MD Work Phone: [facility] 09-16-2024 10:01-0400 Body weight 147.[address] Radha Khan MD Work Phone: [facility] 09-16-2024 10:01-0400 Diastolic blood pressure 70 mm[Hg] Dr. Radha Khan MD Work Phone: [facility] 09-16-2024 10:01-0400 Heart rate 72 /min Dr. Radha Khan MD Work Phone: [facility] 09-16-2024 10:01-0400 SaO2% (BldA) [Mass fraction] 96 % Dr. Radha Khan MD Work Phone: [facility] 09-16-2024 10:01-0400 Systolic blood pressure 109 mm[Hg] Dr. Radha Khan MD Work Phone: 5(888)874-843302 [place] [address] 09-15-2024 12:59-0400 Body height 175.[address] Radha Kahn MD Work Phone: [phone])469-919602 [place] [address] 09-15-2024 12:59-0400 Body mass index (BMI) [Ratio] 47.8 kg/m2 Dr. Radha Khan MD Work Phone: [phone])046-202102 [place] [address] 09-15-2024 12:59-0400 Body temperature 98.2 [degF] Dr. Radha Khan MD Work Phone: 1(900)033-531002 [place] [address] 09-15-2024 12:59-0400 Body weight 146.[address] Radha Khan MD Work Phone: 2(453)691-923402 [place] [address] 09-15-2024 12:59-0400 Diastolic blood pressure 59 mm[Hg] Dr. Radha Khan MD Work Phone: 2(572)263-842583 [place] [address] 09-15-2024 12:59-0400 Heart rate 82 /min Dr. Radha Khan MD Work Phone: 3(949)538-686783 [place] [address] 09-15-2024 12:59-0400 Inhaled oxygen flow rate 4 L/min Dr. Radha Khan MD Work Phone: [facility] 09-15-2024 12:59-0400 Respiratory rate 17 /min Dr. Radha Khan MD Work Phone: [facility] 09-15-2024 12:59-0400 SaO2% (BldA) [Mass fraction] 94 % Dr. Radha Khan MD Work Phone: 2(881)825-622483 [place] [address] 09-15-2024 12:59-0400 Systolic blood pressure 104 mm[Hg] Dr. Radha Khan MD Work Phone: [facility] 08-28-2024 11:58-0400 Body temperature 97.9 [degF] Rosalino Padron MD Work Phone: [facility] 08-28-2024 11:58-0400 Body weight 143.79 kg Rosalino Padron MD Work Phone: [facility] 08-28-2024 11:58-0400 Diastolic blood pressure 70 mm[Hg] Rosalino Padron MD Work Phone: [facility] 08-28-2024 11:58-0400 Heart rate 76 /min Rosalino Padron MD Work Phone: [facility] 08-28-2024 11:58-0400 SaO2% (BldA) [Mass fraction] 95 % Rosalino Padron MD Work Phone: [facility] Comment on above: 4L O2 08-28-2024 11:58-0400 Systolic blood pressure 125 mm[Hg] Rosalino Padron MD Work Phone: [facility] 08-17-2024 11:25-0400 Body height 175.[address] Radha Khan MD Work Phone: [facility] 08-17-2024 11:25-0400 Body mass index (BMI) [Ratio] 46 kg/m2 Dr. Radha Khan MD Work Phone: [facility] 08-17-2024 11:25-0400 Body temperature 98.2 [degF] Dr. Radha Khan MD Work Phone: [facility] 08-17-2024 11:25-0400 Body weight 141.[address] Radha Khan MD Work Phone: [facility] 08-17-2024 11:25-0400 Diastolic blood pressure 70 mm[Hg] Dr. Radha Khan MD Work Phone: [facility] 08-17-2024 11:25-0400 Heart rate 74 /min Dr. Rdaha Khan MD Work Phone: [facility] 08-17-2024 11:25-0400 Inhaled oxygen flow rate 4 L/min Dr. Radha Khan MD Work Phone: [facility] 08-17-2024 11:25-0400 Respiratory rate 16 /min Dr. Radha Khan MD Work Phone: [facility] 08-17-2024 11:25-0400 SaO2% (BldA) [Mass fraction] 96 % Dr. Radha Khan MD Work Phone: [facility] 08-17-2024 11:25-0400 Systolic blood pressure 119 mm[Hg] Dr. Radha Khan MD Work Phone: [facility] 08-07-2024 14:09-0400 Body temperature 98.01 [degF] Rosalino Padron MD Work Phone: [facility] 08-07-2024 14:09-0400 Body weight 141.98 kg Rosalino Padron MD Work Phone: [facility] 08-07-2024 14:09-0400 Diastolic blood pressure 58 mm[Hg] Rosalino Padron MD Work Phone: [facility] 08-07-2024 14:09-0400 Heart rate 81 /min Rosalino Padron MD Work Phone: [facility] 08-07-2024 14:09-0400 SaO2% (BldA) [Mass fraction] 98 % Rosalino Padron MD Work Phone: [facility] 08-07-2024 14:09-0400 Systolic blood pressure 92 mm[Hg] Rosalino Padron MD Work Phone: [facility] 08-06-2024 14:41-0400 Body temperature 98.2 [degF] Dr. Radha Khan MD Work Phone: [facility] 08-06-2024 14:41-0400 Body weight 142.[address] Radha Khan MD Work Phone: [facility] 08-06-2024 14:41-0400 Diastolic blood pressure 69 mm[Hg] Dr. Radha Khan MD Work Phone: [facility] 08-06-2024 14:41-0400 Heart rate 80 /min Dr. Radha Khan MD Work Phone: [facility] 08-06-2024 14:41-0400 Inhaled oxygen flow rate 8 L/min Dr. Radha Khan MD Work Phone: 0(883)058-788983 [place] [address] 08-06-2024 14:41-0400 Respiratory rate 17 /min Dr. Radha Khan MD Work Phone: [facility] 08-06-2024 14:41-0400 SaO2% (BldA) [Mass fraction] 94 % Dr. Radha Khan MD Work Phone: [facility] 08-06-2024 14:41-0400 Systolic blood pressure 99 mm[Hg] Dr. Radha Khan MD Work Phone: [facility] 07-06-2024 13:44-0400 Body temperature 98.2 [degF] Dr. Radha Khan MD Work Phone: [facility] 07-06-2024 13:44-0400 Body weight 139.[address] Radha Khan MD Work Phone: [facility] 07-06-2024 13:44-0400 Diastolic blood pressure 68 mm[Hg] Dr. Radha Khan MD Work Phone: [facility] 07-06-2024 13:44-0400 Heart rate 91 /min Dr. Radha Khan MD Work Phone: [facility] 07-06-2024 13:44-0400 Inhaled oxygen flow rate 4 L/min Dr. Radha Khan MD Work Phone: [facility] 07-06-2024 13:44-0400 Respiratory rate 17 /min Dr. Radha Khan MD Work Phone: [facility] 07-06-2024 13:44-0400 SaO2% (BldA) [Mass fraction] 97 % Dr. Radha Khan MD Work Phone: [facility] 07-06-2024 13:44-0400 Systolic blood pressure 110 mm[Hg] Dr. Radha Khan MD Work Phone: [facility] 06-26-2024 11:10-0400 Body temperature 97.59 [degF] Rosalino Padron MD Work Phone: [facility] 06-26-2024 11:10-0400 Body weight 141.07 kg Rosalino Padron MD Work Phone: [facility] 06-26-2024 11:10-0400 Diastolic blood pressure 78 mm[Hg] Rosalino Padron MD Work Phone: [facility] 06-26-2024 11:10-0400 Heart rate 76 /min Rosalino Padron MD Work Phone: [facility] 06-26-2024 11:10-0400 SaO2% (BldA) [Mass fraction] 98 % Rosalino Padron MD Work Phone: [facility] Comment on above: pt on 4L O2 06-26-2024 11:10-0400 Systolic blood pressure 157 mm[Hg] Rosalino Padron MD Work Phone: [facility] 06-10-2024 08:19-0400 Body mass index (BMI) [Ratio] 45.3 kg/m2 Dr. Radha Khan MD Work Phone: [facility] 06-10-2024 08:19-0400 Body temperature 97.2 [degF] Dr. Radha Khan MD Work Phone: [facility] 06-10-2024 08:19-0400 Body weight 139.[address] Radha Khan MD Work Phone: [facility] 06-10-2024 08:19-0400 Diastolic blood pressure 76 mm[Hg] Dr. Radha Khan MD Work Phone: [facility] 06-10-2024 08:19-0400 Heart rate 59 /min Dr. Radha Khan MD Work Phone: 1(972)754-195783 [place] [address] 06-10-2024 08:19-0400 Inhaled oxygen flow rate 4 L/min Dr. Radha Khan MD Work Phone: 5(449)509-823683 [place] [address] 06-10-2024 08:19-0400 Respiratory rate 20 /min Dr. Radha Khan MD Work Phone: 7(256)098-551281 [address] 06-10-2024 08:19-0400 SaO2% (BldA) [Mass fraction] 99 % Dr. Radha Khan MD Work Phone: 6(835)646-280583 [place] [address] 06-10-2024 08:19-0400 Systolic blood pressure 115 mm[Hg] Dr. Radha Khan MD Work Phone: 3(446)914-127483 [place] [address] 06-04-2024 13:50-0500 Body height 175.[address] Radha Khan MD Work Phone: 6(354)890-317202 [place] [address] 06-04-2024 13:50-0500 Body mass index (BMI) [Ratio] 45.1 kg/m2 Dr. Radha Khan MD Work Phone: 5(124)086-744[address] [place] [address] 06-04-2024 13:50-0500 Body temperature 97.8 [degF] Dr. Radha Khan MD Work Phone: 5(070)111-096783 [place] [address] 06-04-2024 13:50-0500 Body weight 138.[address] Radha Khan MD Work Phone: 0(372)090-033183 [place] [address] 06-04-2024 13:50-0500 Diastolic blood pressure 61 mm[Hg] Dr. Radha Khan MD Work Phone: 6(053)960-898083 [place] [address] 06-04-2024 13:50-0500 Heart rate 59 /min Dr. Radha Khan MD Work Phone: [facility] 06-04-2024 13:50-0500 Inhaled oxygen flow rate 4 L/min Dr. Radha Khan MD Work Phone: [facility] 06-04-2024 13:50-0500 Respiratory rate 17 /min Dr. Radha Khan MD Work Phone: [facility] 06-04-2024 13:50-0500 SaO2% (BldA) [Mass fraction] 92 % Dr. Radha Khan MD Work Phone: 3(274)661-869483 [place] [address] 06-04-2024 13:50-0500 Systolic blood pressure 141 mm[Hg] Dr. Radha Khan MD Work Phone: 9(754)955-033083 [place] [address] 05-21-2024 10:44-0500 Body mass index (BMI) [Ratio] 43.7 kg/m2 Dr. Radha Khan MD Work Phone: 7(998)939-010981 [address] 05-21-2024 10:44-0500 Body weight 134.[address] Radha Khan MD Work Phone: 1(325)797-199981 [address] 05-21-2024 10:44-0500 Diastolic blood pressure 69 mm[Hg] Dr. Radha Khan MD Work Phone: 2(440)935-274783 [place] [address] 05-21-2024 10:44-0500 Heart rate 75 /min Dr. Radha Khan MD Work Phone: 8(044)327-426983 [place] [address] 05-21-2024 10:44-0500 Inhaled oxygen flow rate 4 L/min Dr. Radha Khan MD Work Phone: [facility] 05-21-2024 10:44-0500 Respiratory rate 18 /min Dr. Radha Khan MD Work Phone: [facility] 05-21-2024 10:44-0500 SaO2% (BldA) [Mass fraction] 100 % Dr. Radha Khan MD Work Phone: [facility] 05-21-2024 10:44-0500 Systolic blood pressure 105 mm[Hg] Dr. Radha Khan MD Work Phone: [facility] 05-06-2024 08:35-0500 Body temperature 96.69 [degF] Mey Bosz 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 - [employer] Work Phone: [facility] 05-06-2024 08:35-0500 Diastolic blood pressure 63 mm[Hg] Mey Bosz 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 - [employer] Work Phone: [facility] 05-06-2024 08:35-0500 Heart rate 72 /min Mey Bosz 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 - [employer] Work Phone: [facility] 05-06-2024 08:35-0500 Respiratory rate 20 /min Mey Bosz 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 - [employer] Work Phone: [facility] 05-06-2024 08:35-0500 SaO2% (BldA) [Mass fraction] 95 % Mey Bosz 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 - [employer] Work Phone: [facility] 05-06-2024 08:35-0500 Systolic blood pressure 112 mm[Hg] Mey Bosz 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 - [employer] Work Phone: [facility] 05-05-2024 13:14-0500 Body temperature 98 [degF] Dr. Radha Khan MD Work Phone: [facility] 05-05-2024 13:14-0500 Diastolic blood pressure 63 mm[Hg] Dr. Radha Khan MD Work Phone: [facility] 05-05-2024 13:14-0500 Heart rate 66 /min Dr. Radha Khan MD Work Phone: [facility] 05-05-2024 13:14-0500 Respiratory rate 18 /min Dr. Radha Khan MD Work Phone: [facility] 05-05-2024 13:14-0500 SaO2% (BldA) [Mass fraction] 100 % Dr. Radha Khan MD Work Phone: [facility] 05-05-2024 13:14-0500 Systolic blood pressure 101 mm[Hg] Dr. Radha Khan MD Work Phone: 5(608)036-550483 [place] [address] 05-01-2024 12:31-0500 Body mass index (BMI) [Ratio] 44.4 kg/m2 Dr. Radha Khan MD Work Phone: 7(993)018-575202 [place] [address] 05-01-2024 12:31-0500 Body temperature 98.3 [degF] Dr. Radha Khan MD Work Phone: 2(501)164-024002 [place] [address] 05-01-2024 12:31-0500 Body weight 136.[address] Radha Khan MD Work Phone: 2(750)522-159502 [place] [address] 05-01-2024 12:31-0500 Diastolic blood pressure 60 mm[Hg] Dr. Radha Khan MD Work Phone: 7(056)126-163402 [place] [address] 05-01-2024 12:31-0500 Heart rate 70 /min Dr. Radha Khan MD Work Phone: 8(500)275-959302 [place] [address] 05-01-2024 12:31-0500 Inhaled oxygen flow rate 4 L/min Dr. Radha Khan MD Work Phone: 5(179)102-548202 [place] [address] 05-01-2024 12:31-0500 Respiratory rate 18 /min Dr. Radha Khan MD Work Phone: 3(838)737-643002 [place] [address] 05-01-2024 12:31-0500 SaO2% (BldA) [Mass fraction] 100 % Dr. Radha Khan MD Work Phone: 9(365)992-353783 [place] [address] 05-01-2024 12:31-0500 Systolic blood pressure 97 mm[Hg] Dr. Radha Khan MD Work Phone: 1(690)937-821302 [place] [address] 04-30-2024 14:32-0500 Body temperature 97.4 [degF] Dr. Radha Khan MD Work Phone: 5(466)949-331802 [place] [address] 04-30-2024 14:32-0500 Body weight 138.[address] Radha Khan MD Work Phone: 6(742)910-479502 [place] [address] 04-30-2024 14:32-0500 Diastolic blood pressure 58 mm[Hg] Dr. Radha Khan MD Work Phone: 2(826)744-960902 [place] [address] 04-30-2024 14:32-0500 Heart rate 73 /min Dr. Radha Khan MD Work Phone: 5(729)395-037002 [place] [address] 04-30-2024 14:32-0500 Inhaled oxygen flow rate 4 L/min Dr. Radha Khan MD Work Phone: 2(724)015-650702 [place] [address] 04-30-2024 14:32-0500 Respiratory rate 18 /min Dr. Radha Khan MD Work Phone: 4(596)670-392902 [place] [address] 04-30-2024 14:32-0500 SaO2% (BldA) [Mass fraction] 94 % Dr. Radha Khan MD Work Phone: 4(007)732-001502 [place] [address] 04-30-2024 14:32-0500 Systolic blood pressure 111 mm[Hg] Dr. Radha Khan MD Work Phone: 5(548)091-241602 [place] [address] 04-30-2024 13:26-0500 Body mass index (BMI) [Ratio] 44.7 kg/m2 Dr. Radha Khan MD Work Phone: 1(626)954-546402 [place] [address] 04-30-2024 13:26-0500 Body weight 137.[address] Radha Khan MD Work Phone: 4(906)158-108002 [place] [address] 04-30-2024 13:26-0500 Diastolic blood pressure 55 mm[Hg] Dr. Radha Khan MD Work Phone: 4(764)947-120002 [place] [address] 04-30-2024 13:26-0500 Heart rate 69 /min Dr. Radha Khan MD Work Phone: 8(233)696-248002 [place] [address] 04-30-2024 13:26-0500 Respiratory rate 18 /min Dr. Radha Khan MD Work Phone: 5(357)821-358502 [place] [address] 04-30-2024 13:26-0500 Systolic blood pressure 97 mm[Hg] Dr. Radha Khan MD Work Phone: [facility] 04-30-2024 11:30-0500 Body mass index (BMI) [Ratio] 44.7 kg/m2 Dr. Radha Khan MD Work Phone: [facility] 04-30-2024 11:30-0500 Body temperature 98.2 [degF] Dr. Radha Khan MD Work Phone: 5(075)378-876683 [place] [address] 04-30-2024 11:30-0500 Body weight 137.[address] Radha Khan MD Work Phone: [facility] 04-30-2024 11:30-0500 Diastolic blood pressure 74 mm[Hg] Dr. Radha Khna MD Work Phone: 4(324)637-701183 [place] [address] 04-30-2024 11:30-0500 Heart rate 80 /min Dr. Radha Khan MD Work Phone: 3(754)979-777183 [place] [address] 04-30-2024 11:30-0500 Inhaled oxygen flow rate 4 L/min Dr. Radha Khan MD Work Phone: 7(778)515-110683 [place] [address] 04-30-2024 11:30-0500 Respiratory rate 17 /min Dr. Radha Khan MD Work Phone: [facility] 04-30-2024 11:30-0500 SaO2% (BldA) [Mass fraction] 95 % Dr. Radha Khan MD Work Phone: [facility] 04-30-2024 11:30-0500 Systolic blood pressure 120 mm[Hg] Dr. Radha Khan MD Work Phone: [facility] 04-27-2024 14:43-0500 Body height 175.3 cm Suzy Jauregui MD Work Phone: [facility] 04-27-2024 14:43-0500 Body mass index (BMI) [Ratio] 46.07 kg/m2 Suzy Jauregui MD Work Phone: [facility] 04-27-2024 14:43-0500 Body weight 141.52 kg Suzy Jauregui MD Work Phone: [facility] 04-27-2024 14:43-0500 Diastolic blood pressure 60 mm[Hg] Suzy Jauregui MD Work Phone: [facility] 04-27-2024 14:43-0500 Heart rate 75 /min Suzy Jauregui MD Work Phone: [facility] 04-27-2024 14:43-0500 Respiratory rate 18 /min Suzy Jauregui MD Work Phone: [facility] 04-27-2024 14:43-0500 SaO2% (BldA) [Mass fraction] 95 % Suzy Jauregui MD Work Phone: [facility] 04-27-2024 14:43-0500 Systolic blood pressure 122 mm[Hg] Suzy Jauregui MD Work Phone: [facility] 04-25-2024 16:19-0500 Body mass index (BMI) [Ratio] 44.6 kg/m2 Dr. Radha Khan MD Work Phone: [facility] 04-25-2024 14:00-0500 Body temperature 98.5 [degF] Dr. Radha Khan MD Work Phone: [facility] 04-25-2024 14:00-0500 Diastolic blood pressure 54 mm[Hg] Dr. Radha Khan MD Work Phone: [facility] 04-25-2024 14:00-0500 Heart rate 93 /min Dr. Radha Khan MD Work Phone: [facility] 04-25-2024 14:00-0500 Inhaled oxygen flow rate 3.5 L/min Dr. Radha Khan MD Work Phone: [facility] 04-25-2024 14:00-0500 Respiratory rate 16 /min Dr. Radha hKan MD Work Phone: [facility] 04-25-2024 14:00-0500 SaO2% (BldA) [Mass fraction] 100 % Dr. Radha Khan MD Work Phone: 3(193)684-233202 [place] [address] 04-25-2024 14:00-0500 Systolic blood pressure 113 mm[Hg] Dr. Radha Khan MD Work Phone: 8(782)106-461202 [place] [address] 04-25-2024 09:20-0500 Body weight 137.[address] Radha Khan MD Work Phone: 6(266)416-149202 [place] [address] 04-22-2024 09:35-0500 Body mass index (BMI) [Ratio] 45.6 kg/m2 Dr. Radha Khan MD Work Phone: 5(409)021-853302 [place] [address] 04-22-2024 09:35-0500 Body temperature 97.3 [degF] Dr. Radha Khan MD Work Phone: 6(700)660-117602 [place] [address] 04-22-2024 09:35-0500 Body weight 140.[address] Radha Khan MD Work Phone: 9(843)093-180802 [place] [address] 04-22-2024 09:35-0500 Diastolic blood pressure 76 mm[Hg] Dr. Radha Khan MD Work Phone: 6(490)267-242902 [place] [address] 04-22-2024 09:35-0500 Heart rate 67 /min Dr. Radha Khan MD Work Phone: 8(087)661-386002 [place] [address] 04-22-2024 09:35-0500 Inhaled oxygen flow rate 4 L/min Dr. Radha Khan MD Work Phone: 8(884)462-043302 [place] [address] 04-22-2024 09:35-0500 Respiratory rate 20 /min Dr. Radha Khan MD Work Phone: 5(620)542-662402 [place] [address] 04-22-2024 09:35-0500 SaO2% (BldA) [Mass fraction] 99 % Dr. Radha Khan MD Work Phone: 5(301)727-528002 [place] [address] 04-22-2024 09:35-0500 Systolic blood pressure 143 mm[Hg] Dr. Radha Khan MD Work Phone: 3(833)370-569702 [place] [address] 04-16-2024 09:22-0500 Body mass index (BMI) [Ratio] 44.9 kg/m2 Dr. Radha Khan MD Work Phone: [facility] 04-16-2024 09:22-0500 Body weight 138.[address] Radha Khan MD Work Phone: [facility] 04-16-2024 09:22-0500 Diastolic blood pressure 56 mm[Hg] Dr. Radha Khan MD Work Phone: 0(828)876-663683 [place] [address] 04-16-2024 09:22-0500 Heart rate 79 /min Dr. Radha Khan MD Work Phone: 9(531)799-611883 [place] [address] 04-16-2024 09:22-0500 Inhaled oxygen flow rate 4 L/min Dr. Radha Khan MD Work Phone: 9(678)605-297581 [address] 04-16-2024 09:22-0500 SaO2% (BldA) [Mass fraction] 78 % Dr. Radha Khan MD Work Phone: 5(734)396-342083 [place] [address] 04-16-2024 09:22-0500 Systolic blood pressure 105 mm[Hg] Dr. Radha Khan MD Work Phone: 0(817)571-456883 [place] [address] 04-15-2024 16:08-0500 Inhaled oxygen flow rate 4 L/min Dr. Radha Khan MD Work Phone: [facility] 04-15-2024 14:26-0500 Body temperature 97.9 [degF] Dr. Radha Khan MD Work Phone: 0(981)518-991583 [place] [address] 04-15-2024 14:26-0500 Diastolic blood pressure 66 mm[Hg] Dr. Radha Khan MD Work Phone: [facility] 04-15-2024 14:26-0500 Heart rate 79 /min Dr. Radha Khan MD Work Phone: [facility] 04-15-2024 14:26-0500 Respiratory rate 16 /min Dr. Radha Khan MD Work Phone: [facility] 04-15-2024 14:26-0500 SaO2% (BldA) [Mass fraction] 94 % Dr. Radha Khan MD Work Phone: [facility] 04-15-2024 14:26-0500 Systolic blood pressure 102 mm[Hg] Dr. Radha Khan MD Work Phone: [facility] 04-15-2024 03:24-0500 Body mass index (BMI) [Ratio] 44.5 kg/m2 Dr. Radha Khan MD Work Phone: [facility] 04-15-2024 03:24-0500 Body weight 136.[address] Radha Khan MD Work Phone: [facility] 04-13-2024 20:00-0500 Inhaled oxygen concentration 91 % Dr. Radha Khan MD Work Phone: [facility] 01-06-2024 10:49-0400 Body height 175.3 cm Oziel Culp MD Work Phone: [facility] 01-06-2024 10:49-0400 Body mass index (BMI) [Ratio] 46.07 kg/m2 Oziel Culp MD Work Phone: [facility] 01-06-2024 10:49-0400 Body weight 141.52 kg Oziel Culp MD Work Phone: [facility] 01-06-2024 10:49-0400 Diastolic blood pressure 72 mm[Hg] Oziel Culp MD Work Phone: [facility] [employer] 01-06-2024 10:49-0400 Heart rate 72 /min Oziel Culp MD Work Phone: [facility] 01-06-2024 10:49-0400 Systolic blood pressure 110 mm[Hg] Oziel Culp MD Work Phone: [facility] 10-05-2023 13:16-0400 Body temperature 97.39 [degF] Joe Rocha MD Work Phone: [facility] [employer] 10-05-2023 13:16-0400 Diastolic blood pressure 70 mm[Hg] Joe Rocha MD Work Phone: [facility] 10-05-2023 13:16-0400 Heart rate 83 /min Joe Rocha MD Work Phone: [facility] 10-05-2023 13:16-0400 Respiratory rate 20 /min Joe Rocha MD Work Phone: [facility] 10-05-2023 13:16-0400 SaO2% (BldA) [Mass fraction] 95 % Joe Rocha MD Work Phone: [facility] 10-05-2023 13:16-0400 Systolic blood pressure 107 mm[Hg] Joe Rocha MD Work Phone: [facility] 10-03-2023 15:30-0400 Body temperature 98.06 [degF] CHITO MEDLEY-GABRIELA 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[employer] [facility] 10-03-2023 15:30-0400 Diastolic Blood Pressure Non-Invasive 73 mm[Hg] CHITO MEDLEY-GABRIELA 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[employer] [facility] 10-03-2023 15:30-0400 Heart rate 82 /min CHITO MEDLEY-GABREILA 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[employer] [facility] 10-03-2023 15:30-0400 Reason For Taking VItal Signs CHITO MEDLEY-GABRIELA 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[employer] [facility] 10-03-2023 15:30-0400 Respiratory rate 18 /min CHITO MEDLEY-GABRIELA 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[employer] [facility] 10-03-2023 15:30-0400 Systolic Blood Pressure Non-Invasive 109 mm[Hg] CHITO GALINDO-GABRIELA 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[employer] [facility] 10-03-2023 13:12-0400 Reason For Taking VItal Signs CHITO MEDLEY-GABRIELA 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[employer] [facility] 10-03-2023 11:39-0400 Body temperature 98.24 [degF] CHITO GALINDO-GABRIELA 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[employer] [facility] 10-03-2023 11:39-0400 Diastolic Blood Pressure Non-Invasive 66 mm[Hg] CHITO MEDLEY-GABRIELA 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[employer] [facility] 10-03-2023 11:39-0400 Heart rate 80 /min CHITO GALINDOFedericoGABRIELA 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[employer] [facility] 10-03-2023 11:39-0400 Reason For Taking VItal Signs CHITO MEDLEYFedericoGABRIELA 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[employer] [facility] 10-03-2023 11:39-0400 Respiratory rate 18 /min CHITO MEDLEYFedericoGABRIELA 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[employer] [facility] 10-03-2023 11:39-0400 Systolic Blood Pressure Non-Invasive 112 mm[Hg] CHITO GALINDO-GABRIELA 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[employer] [facility] 10-03-2023 08:27-0400 Heart rate 79 /min CHITO GALINDO-GABRIELA 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 [facility] 10-03-2023 06:05-0400 Body temperature 97.88 [degF] CHITO MEDLEY-GABRIELA 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 [facility] 10-03-2023 06:05-0400 Diastolic Blood Pressure Non-Invasive 76 mm[Hg] CHITO MEDLEY-GABRIELA 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 [facility] 10-03-2023 06:05-0400 Heart rate 71 /min CHITO MEDLEY-GABRIELA 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 [facility] 10-03-2023 06:05-0400 Respiratory rate 18 /min CHITO MEDLEY-GABRIELA 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 [facility] 10-03-2023 06:05-0400 Systolic Blood Pressure Non-Invasive 112 mm[Hg] CHITO MEDLEY-GABRIELA 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 [address] [place] [address] 10-02-2023 08:45-0400 Heart rate 76 /min CHITO MEDLEY-GABRIELA 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 [address] [place] [address] 10-02-2023 03:49-0400 Heart rate 85 /min CHITO MEDLEY-GABRIELA 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 [address] [place] [address] 10-02-2023 01:23-0400 Body height 175.3 cm CHITO MEDLEY-GABRIELA 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 [address] [place] [address] 10-02-2023 01:23-0400 Body weight 144.7 kg CHITO MEDLEY-GABRIELA 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 [address] [place] [address] 10-02-2023 01:23-0400 Body weight 47.09 kg/m2 CHITO GALINDO-GABRIELA 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[employer] [address] [place] [address] 10-02-2023 01:17-0400 Heart rate 71 /min CHITO MEDLEY-GABRIELA 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 [address] [place] [address] 10-02-2023 00:30-0400 Heart rate 82 /min CHITO MEDLEY-GABRIELA 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 [facility] 07-17-2023 15:35-0400 Body temperature 98.2 [degF] Dr. Radha Khan Work Phone: [facility] 07-17-2023 15:35-0400 Body weight 146.[address] Radha Khan Work Phone: [facility] 07-17-2023 15:35-0400 Diastolic blood pressure 67 mm[Hg] Dr. Radha Khan Work Phone: [facility] 07-17-2023 15:35-0400 Heart rate 80 /min Dr. Radha Khan Work Phone: [facility] 07-17-2023 15:35-0400 Respiratory rate 16 /min Dr. Radha Khan Work Phone: [facility] 07-17-2023 15:35-0400 SaO2% (BldA) [Mass fraction] 95 % Dr. Radha Khan Work Phone: [facility] 07-17-2023 15:35-0400 Systolic blood pressure 121 mm[Hg] Dr. Radha Khan Work Phone: 1(430)383-580183 [place] [address] 07-03-2023 11:02-0400 Body height 175.[address] Radha Khan Work Phone: [facility] 07-03-2023 11:02-0400 Body mass index (BMI) [Ratio] 48.1 kg/m2 Dr. Radha Khan Work Phone: [facility] 07-03-2023 11:02-0400 Body weight 147.[address] Radha Khan Work Phone: [facility] 07-03-2023 11:02-0400 Respiratory rate 16 /min Dr. Radha Khan Work Phone: [facility] 05-21-2023 14:43-0500 Body height 175.[address] Radha Khan Work Phone: 8(116)308-925583 [place] [address] 05-21-2023 14:43-0500 Body mass index (BMI) [Ratio] 48.1 kg/m2 Dr. Radha Khan Work Phone: [facility] 05-21-2023 14:43-0500 Body temperature 97.6 [degF] Dr. Radha Khan Work Phone: [facility] 05-21-2023 14:43-0500 Body weight 147.[address] Radha Khan Work Phone: [facility] 05-21-2023 14:43-0500 Diastolic blood pressure 81 mm[Hg] Dr. Radha Khan Work Phone: [facility] 05-21-2023 14:43-0500 Heart rate 83 /min Dr. Radha Khan Work Phone: [facility] 05-21-2023 14:43-0500 Respiratory rate 18 /min Dr. Radha Khan Work Phone: [facility] 05-21-2023 14:43-0500 SaO2% (BldA) [Mass fraction] 97 % Dr. Radha Khan Work Phone: [facility] 05-21-2023 14:43-0500 Systolic blood pressure 121 mm[Hg] Dr. Radha Khan Work Phone: [facility] 05-20-2023 13:21-0500 Body mass index (BMI) [Ratio] 48.3 kg/m2 Dr. Radha Khan Work Phone: [facility] 05-20-2023 13:21-0500 Body temperature 98.6 [degF] Dr. Radha Khan Work Phone: [facility] 05-20-2023 13:21-0500 Body weight 148.[address] Radha Khan Work Phone: [facility] 05-20-2023 13:21-0500 Diastolic blood pressure 68 mm[Hg] Dr. Radha Khan Work Phone: [facility] 05-20-2023 13:21-0500 Heart rate 76 /min Dr. Radha Khan Work Phone: [facility] 05-20-2023 13:21-0500 Respiratory rate 16 /min Dr. Radha Khan Work Phone: [facility] 05-20-2023 13:21-0500 SaO2% (BldA) [Mass fraction] 98 % Dr. Radha Khan Work Phone: [facility] 05-20-2023 13:21-0500 Systolic blood pressure 102 mm[Hg] Dr. Radha Khan Work Phone: [facility] 03-12-2023 12:03-0500 Diastolic blood pressure 72 mm[Hg] Dr. Radha Khan Work Phone: [facility] 03-12-2023 12:03-0500 Heart rate 101 /min Dr. Radha Khan Work Phone: [facility] 03-12-2023 12:03-0500 Systolic blood pressure 96 mm[Hg] Dr. Radha Khan Work Phone: [facility] 03-12-2023 08:59-0500 Body height 175.[address] Radha Khan Work Phone: [facility] 03-12-2023 08:59-0500 Body mass index (BMI) [Ratio] 47.1 kg/m2 Dr. Radha Khan Work Phone: [facility] 03-12-2023 08:59-0500 Body temperature 97.7 [degF] Dr. Radha Khan Work Phone: [facility] 03-12-2023 08:59-0500 Body weight 144.[address] Radha Khan Work Phone: [facility] 03-12-2023 08:59-0500 Respiratory rate 17 /min Dr. Radha Khan Work Phone: [facility] 03-12-2023 08:59-0500 SaO2% (BldA) [Mass fraction] 97 % Dr. Radha Khan Work Phone: [facility] 02-27-2023 10:43-0500 Body height 175.[address] Radha Khan Work Phone: [facility] 02-27-2023 10:43-0500 Body mass index (BMI) [Ratio] 46.9 kg/m2 Dr. Radha Khan Work Phone: [facility] 02-27-2023 10:43-0500 Body weight 144.[address] Radha Khan Work Phone: [facility] 02-27-2023 10:43-0500 Diastolic blood pressure 71 mm[Hg] Dr. Radha Khan Work Phone: [facility] 02-27-2023 10:43-0500 Heart rate 73 /min Dr. Radha Khan Work Phone: [facility] 02-27-2023 10:43-0500 Respiratory rate 20 /min Dr. Radha Khan Work Phone: [facility] 02-27-2023 10:43-0500 SaO2% (BldA) [Mass fraction] 100 % Dr. Radha Khan Work Phone: [facility] 02-27-2023 10:43-0500 Systolic blood pressure 103 mm[Hg] Dr. Radha Khan Work Phone: [facility] 02-18-2023 11:05-0500 Body temperature 97.8 [degF] Dr. Radha Khan Work Phone: [facility] 02-18-2023 11:05-0500 Diastolic blood pressure 63 mm[Hg] Dr. Radha Khan Work Phone: [facility] 02-18-2023 11:05-0500 Heart rate 69 /min Dr. Radha Khan Work Phone: [facility] 02-18-2023 11:05-0500 Respiratory rate 16 /min Dr. Radha Khan Work Phone: [facility] 02-18-2023 11:05-0500 SaO2% (BldA) [Mass fraction] 96 % Dr. Radha Khan Work Phone: [facility] 02-18-2023 11:05-0500 Systolic blood pressure 132 mm[Hg] Dr. Radha Khan Work Phone: [facility] 02-18-2023 09:54-0500 Body height 175.[address] Radha Khan Work Phone: [facility] 02-18-2023 09:54-0500 Body mass index (BMI) [Ratio] 47.5 kg/m2 Dr. Radha Khan Work Phone: [facility] 02-18-2023 09:54-0500 Body weight [address] Radha Khan Work Phone: 4(313)972-849581 [address] 02-04-2023 13:15-0500 Body mass index (BMI) [Ratio] 48.2 kg/m2 Dr. Radha Khan Work Phone: 9(968)223-738983 [place] [address] 02-04-2023 13:15-0500 Body temperature 98 [degF] Dr. Radha Khan Work Phone: [facility] 02-04-2023 13:15-0500 Body weight 148.[address] Radha Khan Work Phone: [facility] 02-04-2023 13:15-0500 Diastolic blood pressure 62 mm[Hg] Dr. Radha Khan Work Phone: 8(054)709-814383 [place] [address] 02-04-2023 13:15-0500 Heart rate 80 /min Dr. Radha Khan Work Phone: [facility] 02-04-2023 13:15-0500 Respiratory rate 18 /min Dr. Radha Khan Work Phone: [facility] 02-04-2023 13:15-0500 SaO2% (BldA) [Mass fraction] 98 % Dr. Radha Khan Work Phone: [facility] 02-04-2023 13:15-0500 Systolic blood pressure 100 mm[Hg] Dr. Radha Khan Work Phone: 7(149)915-462883 [place] [address] 01-01-2023 14:11-0400 Body height 175.[address] Radha Khan Work Phone: 3(750)246-445183 [place] [address] 01-01-2023 14:11-0400 Body mass index (BMI) [Ratio] 47.8 kg/m2 Dr. Radha Khan Work Phone: 9(039)265-852383 [place] [address] 01-01-2023 14:11-0400 Body temperature 97.3 [degF] Dr. Radha Khan Work Phone: 1(249)542-138883 [place] [address] 01-01-2023 14:11-0400 Body weight [address] Radha Khan Work Phone: 9(098)699-508302 [place] [address] 01-01-2023 14:11-0400 Diastolic blood pressure 67 mm[Hg] Dr. Radha Khan Work Phone: 2(910)544-187602 [place] [address] 01-01-2023 14:11-0400 Heart rate 75 /min Dr. Radha Khan Work Phone: 6(105)388-475802 [place] [address] 01-01-2023 14:11-0400 Respiratory rate 17 /min Dr. Radha Khan Work Phone: 8(853)375-640883 [place] [address] 01-01-2023 14:11-0400 SaO2% (BldA) [Mass fraction] 98 % Dr. Radha Khan Work Phone: 2(991)362-276583 [place] [address] 01-01-2023 14:11-0400 Systolic blood pressure 106 mm[Hg] Dr. Radha Khan Work Phone: 4(086)423-061483 [place] [address] 12-10-2022 11:33-0400 Body mass index (BMI) [Ratio] 47.8 kg/m2 Dr. Radha Khan Work Phone: 7(332)706-223083 [place] [address] 12-10-2022 11:33-0400 Body temperature 98.3 [degF] Dr. Radha Khan Work Phone: 6(481)639-618583 [place] [address] 12-10-2022 11:33-0400 Body weight 146.[address] Radha Khan Work Phone: 0(441)160-678383 [place] [address] 12-10-2022 11:33-0400 Diastolic blood pressure 70 mm[Hg] Dr. Radha Khan Work Phone: [facility] 12-10-2022 11:33-0400 Heart rate 72 /min Dr. Radha Khan Work Phone: [facility] 12-10-2022 11:33-0400 Respiratory rate 16 /min Dr. Radha Khan Work Phone: [facility] 12-10-2022 11:33-0400 SaO2% (BldA) [Mass fraction] 96 % Dr. Radha Khan Work Phone: 2(184)724-221983 [place] [address] 12-10-2022 11:33-0400 Systolic blood pressure 118 mm[Hg] Dr. Radha Khan Work Phone: 0(834)307-924983 [place] [address] 10-08-2022 14:22-0400 Diastolic blood pressure 72 mm[Hg] Dr. Radha Khan Work Phone: 0(087)412-175483 [place] [address] 10-08-2022 14:22-0400 Systolic blood pressure 107 mm[Hg] Dr. Radha Khan Work Phone: 8(463)209-230583 [place] [address] 09-03-2022 13:57-0400 Body height 175.[address] Radha Khan Work Phone: [facility] 09-03-2022 13:57-0400 Body mass index (BMI) [Ratio] 47 kg/m2 Dr. Radha Khan Work Phone: [facility] 09-03-2022 13:57-0400 Body temperature 98.6 [degF] Dr. Radha Khan Work Phone: 6(295)851-235283 [place] [address] 09-03-2022 13:57-0400 Body weight 144.[address] Radha Khan Work Phone: [facility] 09-03-2022 13:57-0400 Diastolic blood pressure 56 mm[Hg] Dr. Radha Khan Work Phone: [facility] 09-03-2022 13:57-0400 Heart rate 62 /min Dr. Radha Khan Work Phone: [facility] 09-03-2022 13:57-0400 Respiratory rate 16 /min Dr. Radha Khan Work Phone: [facility] 09-03-2022 13:57-0400 SaO2% (BldA) [Mass fraction] 94 % Dr. Radha Khan Work Phone: [facility] 09-03-2022 13:57-0400 Systolic blood pressure 90 mm[Hg] Dr. Radha Khan Work Phone: [facility] 08-03-2022 15:30-0400 Body mass index (BMI) [Ratio] 45.4 kg/m2 Dr. Radha Khan Work Phone: [facility] 08-03-2022 15:20-0400 Body temperature 97.9 [degF] Dr. Rahda Khan Work Phone: [facility] 08-03-2022 15:20-0400 Diastolic blood pressure 78 mm[Hg] Dr. Radha Khan Work Phone: [facility] 08-03-2022 15:20-0400 Heart rate 107 /min Dr. Radha Khan Work Phone: [facility] 08-03-2022 15:20-0400 Respiratory rate 16 /min Dr. Radha Khan Work Phone: [facility] 08-03-2022 15:20-0400 SaO2% (BldA) [Mass fraction] 97 % Dr. Radha Khan Work Phone: [facility] 08-03-2022 15:20-0400 Systolic blood pressure 144 mm[Hg] Dr. Radha Khan Work Phone: [facility] 08-03-2022 05:22-0400 Body mass index (BMI) [Ratio] 45.4 kg/m2 Dr. Radha Khan Work Phone: [facility] 08-03-2022 05:22-0400 Body weight 139.[address] Radha Khan Work Phone: [facility] 08-02-2022 10:53-0400 Body height 175.[address] Radha Khan Work Phone: [facility] 06-18-2022 14:14-0400 Body height 175.[address] Radha Khan Work Phone: [facility] 06-18-2022 14:14-0400 Body mass index (BMI) [Ratio] 45.8 kg/m2 Dr. Radha Khan Work Phone: [facility] 06-18-2022 14:14-0400 Body temperature 96.7 [degF] Dr. Radha Khan Work Phone: [facility] 06-18-2022 14:14-0400 Body weight 140.[address] Radha Khan Work Phone: [facility] 06-18-2022 14:14-0400 Diastolic blood pressure 70 mm[Hg] Dr. Radha Khan Work Phone: [facility] 06-18-2022 14:14-0400 Heart rate 81 /min Dr. Radha Khan Work Phone: [facility] 06-18-2022 14:14-0400 Respiratory rate 18 /min Dr. Radha Khan Work Phone: [facility] 06-18-2022 14:14-0400 SaO2% (BldA) [Mass fraction] 98 % Dr. Radha Khan Work Phone: [facility] 06-18-2022 14:14-0400 Systolic blood pressure 110 mm[Hg] Dr. Radha Khan Work Phone: [facility] 06-12-2022 07:50-0400 Body mass index (BMI) [Ratio] 45.8 kg/m2 Dr. Radha Khan Work Phone: [facility] 06-12-2022 07:50-0400 Body temperature 97.3 [degF] Dr. Radha Khan Work Phone: [facility] 06-12-2022 07:50-0400 Body weight 140.[address] Radha Khan Work Phone: [facility] 06-12-2022 07:50-0400 Diastolic blood pressure 72 mm[Hg] Dr. Radha Khan Work Phone: [facility] 06-12-2022 07:50-0400 Heart rate 83 /min Dr. Radha Khan Work Phone: [facility] 06-12-2022 07:50-0400 Respiratory rate 18 /min Dr. Radha Khan Work Phone: [facility] 06-12-2022 07:50-0400 SaO2% (BldA) [Mass fraction] 97 % Dr. Radha Khan Work Phone: [facility] 06-12-2022 07:50-0400 Systolic blood pressure 115 mm[Hg] Dr. Radha Khan Work Phone: [facility] 05-21-2022 15:09-0500 Diastolic blood pressure 80 mm[Hg] Dr. Radha Khan Work Phone: [facility] 05-21-2022 15:09-0500 Systolic blood pressure 130 mm[Hg] Dr. Radha Khan Work Phone: [facility] 05-21-2022 15:09-0500 Body mass index (BMI) [Ratio] 45.6 kg/m2 Dr. Radha Khan Work Phone: [facility] 05-21-2022 15:09-0500 Body weight 140.[address] Radha Khan Work Phone: [facility] 05-21-2022 15:09-0500 Heart rate 80 /min Dr. Radha Khan Work Phone: [facility] 05-21-2022 15:09-0500 Respiratory rate 18 /min Dr. Radha Khan Work Phone: [facility] 05-21-2022 15:09-0500 SaO2% (BldA) [Mass fraction] 94 % Dr. Radha Khan Work Phone: [facility] 05-09-2022 08:42-0500 Body height 175.[address] Radha Khan Work Phone: 6(719)001-200683 [place] [address] 05-09-2022 08:42-0500 Body weight 136.[address] Radha Khan Work Phone: 5(238)757-338281 [address] 05-08-2022 08:18-0500 Body mass index (BMI) [Ratio] 44.6 kg/m2 Dr. Radha Khan Work Phone: 5(822)991-242181 [address] 05-03-2022 08:34-0500 Body mass index (BMI) [Ratio] 44.6 kg/m2 Dr. Radha Khan Work Phone: 9(976)983-900681 [address] 05-03-2022 08:34-0500 Body weight 136.[address] Radha Khan Work Phone: 0(010)397-681302 [place] [address] 05-03-2022 08:34-0500 Diastolic blood pressure 84 mm[Hg] Dr. Radha Khan Work Phone: 6(353)677-614383 [place] [address] 05-03-2022 08:34-0500 Heart rate 92 /min Dr. Radha Khan Work Phone: 2(257)303-644383 [place] [address] 05-03-2022 08:34-0500 Respiratory rate 20 /min Dr. Radha Khan Work Phone: 9(783)503-176383 [place] [address] 05-03-2022 08:34-0500 SaO2% (BldA) [Mass fraction] 95 % Dr. Radha Khan Work Phone: 3(226)049-628983 [place] [address] 05-03-2022 08:34-0500 Systolic blood pressure 143 mm[Hg] Dr. Radha Khan Work Phone: 5(823)621-924881 [address] 03-12-2022 10:43-0500 Body height 175.[address] Radah Khan Work Phone: [facility] 03-12-2022 10:43-0500 Body mass index (BMI) [Ratio] 45.6 kg/m2 Dr. Radha Khan Work Phone: [facility] 03-12-2022 10:43-0500 Body temperature 97.2 [degF] Dr. Radha Khan Work Phone: [facility] 03-12-2022 10:43-0500 Body weight 140.[address] Radha Khan Work Phone: [facility] 03-12-2022 10:43-0500 Diastolic blood pressure 59 mm[Hg] Dr. Radha Khan Work Phone: [facility] 03-12-2022 10:43-0500 Heart rate 78 /min Dr. Radha Khan Work Phone: [facility] 03-12-2022 10:43-0500 Respiratory rate 18 /min Dr. Radha Khan Work Phone: [facility] 03-12-2022 10:43-0500 SaO2% (BldA) [Mass fraction] 92 % Dr. Radha Khan Work Phone: [facility] 03-12-2022 10:43-0500 Systolic blood pressure 92 mm[Hg] Dr. Radha Khan Work Phone: [facility] 02-19-2022 08:31-0500 Body height 175.[address] Radha Khan Work Phone: [facility] Work Phone: 02-19-2022 08:31-0500 Body mass index (BMI) [Ratio] 45.8 kg/m2 Dr. Radha Khan Work Phone: [facility] 02-19-2022 08:31-0500 Body weight 140.[address] Radha Khan Work Phone: [facility] 02-19-2022 08:31-0500 Diastolic blood pressure 64 mm[Hg] Dr. Radha Khan Work Phone: [facility] 02-19-2022 08:31-0500 Heart rate 68 /min Dr. Radha Khan Work Phone: [facility] 02-19-2022 08:31-0500 Respiratory rate 18 /min Dr. Radha Khan Work Phone: [facility] 02-19-2022 08:31-0500 Systolic blood pressure 125 mm[Hg] Dr. Radha Khan Work Phone: [facility] 02-16-2022 12:47-0500 Body weight 136.[address] Radha Khan Work Phone: [facility] 02-16-2022 12:47-0500 Heart rate 77 /min Dr. Radha Khan Work Phone: [facility] 02-16-2022 12:47-0500 Inhaled oxygen flow rate 2 L/min Dr. Radha Khan Work Phone: [facility] 02-16-2022 12:47-0500 SaO2% (BldA) [Mass fraction] 98 % Dr. Radha Khan Work Phone: [facility] 02-12-2022 08:54-0500 Body mass index (BMI) [Ratio] 44.6 kg/m2 Dr. Radha Khan Work Phone: [facility] 02-12-2022 08:54-0500 Body temperature 98.2 [degF] Dr. Radha Khan Work Phone: [facility] 02-12-2022 08:54-0500 Body weight 137.[address] Radha Khan Work Phone: [facility] 02-12-2022 08:54-0500 Diastolic blood pressure 78 mm[Hg] Dr. Radha Khan Work Phone: [facility] 02-12-2022 08:54-0500 Heart rate 69 /min Dr. Radha Khan Work Phone: [facility] 02-12-2022 08:54-0500 Respiratory rate 18 /min Dr. Radha Khan Work Phone: [facility] 02-12-2022 08:54-0500 SaO2% (BldA) [Mass fraction] 98 % Dr. Radha Khan Work Phone: [facility] 02-12-2022 08:54-0500 Systolic blood pressure 122 mm[Hg] Dr. Radha Khan Work Phone: [facility] 01-15-2022 10:51-0400 Body mass index (BMI) [Ratio] 45.5 kg/m2 Dr. Radha Khan Work Phone: 9(167)939-558083 [place] [address] 01-15-2022 10:51-0400 Body temperature 97 [degF] Dr. Radha Khan Work Phone: 5(153)329-450583 [place] [address] 01-15-2022 10:51-0400 Body weight 139.[address] Radha Khan Work Phone: 4(132)337-826883 [place] [address] 01-15-2022 10:51-0400 Diastolic blood pressure 76 mm[Hg] Dr. Radha Khan Work Phone: [facility] 01-15-2022 10:51-0400 Heart rate 76 /min Dr. Radha Khan Work Phone: [facility] 01-15-2022 10:51-0400 Respiratory rate 18 /min Dr. Radha Khan Work Phone: [facility] 01-15-2022 10:51-0400 SaO2% (BldA) [Mass fraction] 93 % Dr. Radha Khan Work Phone: [facility] 01-15-2022 10:51-0400 Systolic blood pressure 124 mm[Hg] Dr. Radha Khan Work Phone: [facility] 11-13-2021 15:28-0400 Body mass index (BMI) [Ratio] 44.6 kg/m2 Dr. Radha Khan Work Phone: [facility] Work Phone: 11-13-2021 15:28-0400 Body weight 136.[address] Radha Khan Work Phone: [facility] Work Phone: 11-13-2021 15:28-0400 Diastolic blood pressure 64 mm[Hg] Dr. Radha Khan Work Phone: [facility] Work Phone: 11-13-2021 15:28-0400 Heart rate 79 /min Dr. Radha Khan Work Phone: [facility] Work Phone: 11-13-2021 15:28-0400 Respiratory rate 18 /min Dr. Radha Khan Work Phone: [facility] Work Phone: 11-13-2021 15:28-0400 Systolic blood pressure 110 mm[Hg] Dr. Radha Khan Work Phone: [facility] Work Phone: 09-07-2021 14:21-0400 Body height 175.[address] Radha Khan Work Phone: [facility] Work Phone: 09-07-2021 14:21-0400 Body mass index (BMI) [Ratio] 45 kg/m2 Dr. Radha Khan Work Phone: [facility] Work Phone: 09-07-2021 14:21-0400 Body weight 138.[address] Radha Khan Work Phone: [facility] Work Phone: 09-07-2021 14:21-0400 Diastolic blood pressure 79 mm[Hg] Dr. Radha Khan Work Phone: [facility] Work Phone: 09-07-2021 14:21-0400 Heart rate 79 /min Dr. Radha Khan Work Phone: [facility] Work Phone: 09-07-2021 14:21-0400 Respiratory rate 18 /min Dr. Radha Khan Work Phone: [facility] Work Phone: 09-07-2021 14:21-0400 SaO2% (BldA) [Mass fraction] 96 % Dr. Radha Khan Work Phone: [facility] Work Phone: 09-07-2021 14:21-0400 Systolic blood pressure 153 mm[Hg] Dr. Radha Khan Work Phone: [facility] Work Phone: 09-04-2021 10:10-0400 Diastolic blood pressure 82 mm[Hg] Dr. Radha Khan Work Phone: [facility] Work Phone: 09-04-2021 10:10-0400 Systolic blood pressure 172 mm[Hg] Dr. Radha Khan Work Phone: [facility] Work Phone: 09-04-2021 09:10-0400 Heart rate 78 /min Dr. Radha Khan Work Phone: [facility] Work Phone: 09-04-2021 09:10-0400 SaO2% (BldA) [Mass fraction] 95 % Dr. Radha Khan Work Phone: [facility] Work Phone: 09-04-2021 08:44-0400 Respiratory rate 16 /min Dr. Radha Khan Work Phone: [facility] Work Phone: 09-04-2021 06:22-0400 Body height 175.[address] Radha Khan Work Phone: [facility] Work Phone: 09-04-2021 06:22-0400 Body mass index (BMI) [Ratio] 45.1 kg/m2 Dr. Radha Khan Work Phone: [facility] Work Phone: 09-04-2021 06:22-0400 Body temperature 97.4 [degF] Dr. Radha Khan Work Phone: [facility] Work Phone: 09-04-2021 06:22-0400 Body weight 138.[address] Radha Khan Work Phone: [facility] Work Phone: 08-10-2021 13:42-0400 Body mass index (BMI) [Ratio] 44.5 kg/m2 Dr. Radha Khan Work Phone: [facility] Work Phone: 08-10-2021 13:42-0400 Body temperature 95.7 [degF] Dr. Radha Khan Work Phone: [facility] Work Phone: 08-10-2021 13:42-0400 Body weight 136.[address] Radha Khan Work Phone: [facility] Work Phone: 08-10-2021 13:42-0400 Diastolic blood pressure 80 mm[Hg] Dr. Radha Khan Work Phone: [facility] Work Phone: 08-10-2021 13:42-0400 Heart rate 84 /min Dr. Radha Khan Work Phone: [facility] Work Phone: 08-10-2021 13:42-0400 Respiratory rate 18 /min Dr. Radha Khan Work Phone: [facility] Work Phone: 08-10-2021 13:42-0400 SaO2% (BldA) [Mass fraction] 96 % Dr. Radha Khan Work Phone: [facility] Work Phone: 08-10-2021 13:42-0400 Systolic blood pressure 140 mm[Hg] Dr. Radha Khan Work Phone: [facility] Work Phone: 08-10-2021 13:42-0400 Body height 175.[address] Radha Khan Work Phone: [facility] Work Phone: 08-10-2021 13:42-0400 Body mass index (BMI) [Ratio] 44.5 kg/m2 Dr. Radha Khan Work Phone: [facility] Work Phone: 08-10-2021 13:42-0400 Body temperature 95.7 [degF] Dr. Radha Khan Work Phone: [facility] Work Phone: 08-10-2021 13:42-0400 Body weight 136.[address] Radha Khan Work Phone: [facility] Work Phone: 08-10-2021 13:42-0400 Diastolic blood pressure 80 mm[Hg] Dr. Radha Khan Work Phone: [facility] Work Phone: 08-10-2021 13:42-0400 Heart rate 84 /min Dr. Radha Khan Work Phone: [facility] Work Phone: 08-10-2021 13:42-0400 Respiratory rate 18 /min Dr. Radha Khan Work Phone: [facility] Work Phone: 08-10-2021 13:42-0400 SaO2% (BldA) [Mass fraction] 96 % Dr. Radha Khan Work Phone: [facility] Work Phone: 08-10-2021 13:42-0400 Systolic blood pressure 140 mm[Hg] Dr. Radha Khan Work Phone: [facility] Work Phone: 07-16-2021 16:25-0400 Body temperature 98.7 [degF] Dr. Radha Khan Work Phone: [facility] Work Phone: 07-16-2021 16:25-0400 Diastolic blood pressure 75 mm[Hg] Dr. Radha Khan Work Phone: [facility] Work Phone: 07-16-2021 16:25-0400 Heart rate 73 /min Dr. Radha Khan Work Phone: [facility] Work Phone: 07-16-2021 16:25-0400 Respiratory rate 18 /min Dr. Radha Khan Work Phone: [facility] Work Phone: 07-16-2021 16:25-0400 SaO2% (BldA) [Mass fraction] 99 % Dr. Radha Khan Work Phone: [facility] Work Phone: 07-16-2021 16:25-0400 Systolic blood pressure 155 mm[Hg] Dr. Radha Khan Work Phone: [facility] Work Phone: 07-16-2021 14:17-0400 Body height 175.[address] Radha Khan Work Phone: [facility] Work Phone: 07-16-2021 14:17-0400 Body mass index (BMI) [Ratio] 44.9 kg/m2 Dr. Radha Khan Work Phone: [facility] Work Phone: 07-16-2021 14:17-0400 Body weight [address] Radha Khan Work Phone: [facility] Work Phone: 07-13-2021 10:31-0400 Body mass index (BMI) [Ratio] 44.4 kg/m2 Dr. Radha Khan Work Phone: [facility] Work Phone: 07-13-2021 10:31-0400 Body temperature 98.2 [degF] Dr. Radha Khan Work Phone: [facility] Work Phone: 07-13-2021 10:31-0400 Body weight 136.[address] Radha Khan Work Phone: [facility] Work Phone: 07-13-2021 10:31-0400 Diastolic blood pressure 72 mm[Hg] Dr. Radha Khan Work Phone: [facility] Work Phone: 07-13-2021 10:31-0400 Heart rate 73 /min Dr. Radha Khan Work Phone: [facility] Work Phone: 07-13-2021 10:31-0400 Respiratory rate 17 /min Dr. Radha Khan Work Phone: [facility] Work Phone: 07-13-2021 10:31-0400 SaO2% (BldA) [Mass fraction] 99 % Dr. Radha Khna Work Phone: [facility] Work Phone: 07-13-2021 10:31-0400 Systolic blood pressure 115 mm[Hg] Dr. Radha Khan Work Phone: [facility] Work Phone: 07-13-2021 10:31-0400 Body mass index (BMI) [Ratio] 44.4 kg/m2 Dr. Radha Khan Work Phone: [facility] Work Phone: 07-13-2021 10:31-0400 Body temperature 98.2 [degF] Dr. Radha Khan Work Phone: [facility] Work Phone: 07-13-2021 10:31-0400 Body weight 136.[address] Radha Khan Work Phone: [facility] Work Phone: 07-13-2021 10:31-0400 Diastolic blood pressure 72 mm[Hg] Dr. Radha Khan Work Phone: [facility] Work Phone: 07-13-2021 10:31-0400 Heart rate 73 /min Dr. Radha Khan Work Phone: [facility] Work Phone: 07-13-2021 10:31-0400 Respiratory rate 17 /min Dr. Radha Khan Work Phone: [facility] Work Phone: 07-13-2021 10:31-0400 SaO2% (BldA) [Mass fraction] 99 % Dr. Radha Khan Work Phone: [facility] Work Phone: 07-13-2021 10:31-0400 Systolic blood pressure 115 mm[Hg] Dr. Radha Khan Work Phone: [facility] Work Phone: 07-12-2021 12:50-0400 Body weight 136.[address] Radha Khan Work Phone: [facility] Work Phone: 07-12-2021 12:50-0400 Diastolic blood pressure 83 mm[Hg] Dr. Radha Khan Work Phone: [facility] Work Phone: 07-12-2021 12:50-0400 Heart rate 72 /min Dr. Radha Khan Work Phone: [facility] Work Phone: 07-12-2021 12:50-0400 Respiratory rate 18 /min Dr. Radha Khan Work Phone: [facility] Work Phone: 07-12-2021 12:50-0400 SaO2% (BldA) [Mass fraction] 100 % Dr. Radha Khan Work Phone: [facility] Work Phone: 07-12-2021 12:50-0400 Systolic blood pressure 148 mm[Hg] Dr. Radha Khan Work Phone: [facility] Work Phone: 07-12-2021 12:50-0400 Body weight 136.[address] Radha Khan Work Phone: [facility] Work Phone: 07-12-2021 12:50-0400 Diastolic blood pressure 83 mm[Hg] Dr. Radha Khan Work Phone: [facility] Work Phone: 07-12-2021 12:50-0400 Heart rate 72 /min Dr. Radha Khan Work Phone: [facility] Work Phone: 07-12-2021 12:50-0400 Respiratory rate 18 /min Dr. Radha Khan Work Phone: [facility] Work Phone: 07-12-2021 12:50-0400 SaO2% (BldA) [Mass fraction] 100 % Dr. Radha Khan Work Phone: [facility] Work Phone: 07-12-2021 12:50-0400 Systolic blood pressure 148 mm[Hg] Dr. Radha Khan Work Phone: [facility] Work Phone: 06-29-2021 13:09-0400 Body mass index (BMI) [Ratio] 43.6 kg/m2 Dr. Radha Khan Work Phone: [facility] Work Phone: 06-29-2021 13:09-0400 Body temperature 96.9 [degF] Dr. Radha Khan Work Phone: [facility] Work Phone: 06-29-2021 13:09-0400 Body weight 133.[address] Radha Khan Work Phone: [facility] Work Phone: 06-29-2021 13:09-0400 Diastolic blood pressure 76 mm[Hg] Dr. Radha Khan Work Phone: [facility] Work Phone: 06-29-2021 13:09-0400 Heart rate 98 /min Dr. Radha Khan Work Phone: [facility] Work Phone: 06-29-2021 13:09-0400 Respiratory rate 18 /min Dr. Radha Khan Work Phone: [facility] Work Phone: 06-29-2021 13:09-0400 SaO2% (BldA) [Mass fraction] 98 % Dr. Radha Khan Work Phone: [facility] Work Phone: 06-29-2021 13:09-0400 Systolic blood pressure 110 mm[Hg] Dr. Radha Khan Work Phone: [facility] Work Phone: 06-29-2021 13:09-0400 Body mass index (BMI) [Ratio] 43.6 kg/m2 Dr. Radha Khan Work Phone: [facility] Work Phone: 06-29-2021 13:09-0400 Body temperature 96.9 [degF] Dr. Radha Khan Work Phone: [facility] Work Phone: 06-29-2021 13:09-0400 Body weight 133.[address] Radha Khan Work Phone: [facility] Work Phone: 06-29-2021 13:09-0400 Diastolic blood pressure 76 mm[Hg] Dr. Radha Khan Work Phone: [facility] Work Phone: 06-29-2021 13:09-0400 Heart rate 98 /min Dr. Radha Khan Work Phone: [facility] Work Phone: 06-29-2021 13:09-0400 Respiratory rate 18 /min Dr. Radha Khan Work Phone: [facility] Work Phone: 06-29-2021 13:09-0400 SaO2% (BldA) [Mass fraction] 98 % Dr. Radha Khan Work Phone: [facility] Work Phone: 06-29-2021 13:09-0400 Systolic blood pressure 110 mm[Hg] Dr. Radha Khan Work Phone: [facility] Work Phone: 06-20-2021 12:08-0400 Heart rate 90 /min Dr. Radha Khan Work Phone: [facility] Work Phone: 06-20-2021 10:32-0400 SaO2% (BldA) [Mass fraction] 95 % Dr. Radha Khan Work Phone: [facility] Work Phone: 06-20-2021 09:00-0400 Body temperature 97.8 [degF] Dr. Radha Khan Work Phone: [facility] Work Phone: 06-20-2021 09:00-0400 Diastolic blood pressure 82 mm[Hg] Dr. Radha Khan Work Phone: [facility] Work Phone: 06-20-2021 09:00-0400 Respiratory rate 18 /min Dr. Radha Khan Work Phone: [facility] Work Phone: 06-20-2021 09:00-0400 Systolic blood pressure 154 mm[Hg] Dr. Radha Khan Work Phone: [facility] Work Phone: 06-20-2021 06:00-0400 Body weight [address] Radha Khan Work Phone: [facility] Work Phone: 06-19-2021 10:46-0400 Body mass index (BMI) [Ratio] 44.3 kg/m2 Dr. Radha Khan Work Phone: [facility] Work Phone: 06-15-2021 14:08-0400 Body weight 139.[address] Radha Khan Work Phone: [facility] Work Phone: 06-15-2021 14:08-0400 Heart rate 84 /min Dr. Radha Khan Work Phone: [facility] Work Phone: 06-15-2021 14:08-0400 SaO2% (BldA) [Mass fraction] 97 % Dr. Radha Khan Work Phone: [facility] Work Phone: 06-01-2021 13:31-0500 Body mass index (BMI) [Ratio] 43.9 kg/m2 Dr. Radha Khan Work Phone: [facility] Work Phone: 06-01-2021 13:31-0500 Body temperature 96.9 [degF] Dr. Radha Khan Work Phone: [facility] Work Phone: 06-01-2021 13:31-0500 Body weight 134.[address] Radha Khan Work Phone: [facility] Work Phone: 06-01-2021 13:31-0500 Diastolic blood pressure 70 mm[Hg] Dr. Radha Khan Work Phone: [facility] Work Phone: 06-01-2021 13:31-0500 Heart rate 78 /min Dr. Radha Khan Work Phone: [facility] Work Phone: 06-01-2021 13:31-0500 Respiratory rate 18 /min Dr. Radha Khan Work Phone: [facility] Work Phone: 06-01-2021 13:31-0500 SaO2% (BldA) [Mass fraction] 100 % Dr. Radha Khan Work Phone: [facility] Work Phone: 06-01-2021 13:31-0500 Systolic blood pressure 110 mm[Hg] Dr. Radha Khan Work Phone: [facility] Work Phone: 06-01-2021 12:31-0500 Body mass index (BMI) [Ratio] 43.9 kg/m2 Dr. Radha Khan Work Phone: [facility] Work Phone: 06-01-2021 12:31-0500 Body temperature 96.9 [degF] Dr. Radha Khan Work Phone: [facility] Work Phone: 06-01-2021 12:31-0500 Body weight 134.[address] Radha Khan Work Phone: [facility] Work Phone: 06-01-2021 12:31-0500 Diastolic blood pressure 70 mm[Hg] Dr. Radha Khan Work Phone: [facility] Work Phone: 06-01-2021 12:31-0500 Heart rate 78 /min Dr. Radha Khan Work Phone: [facility] Work Phone: 06-01-2021 12:31-0500 Respiratory rate 18 /min Dr. Radha Khan Work Phone: [facility] Work Phone: 06-01-2021 12:31-0500 SaO2% (BldA) [Mass fraction] 100 % Dr. Radha Khan Work Phone: [facility] Work Phone: 06-01-2021 12:31-0500 Systolic blood pressure 110 mm[Hg] Dr. Radha Khan Work Phone: [facility] Work Phone: 10-13-2020 15:48-0400 Body mass index (BMI) [Ratio] 45.2 kg/m2 Dr. Radha Khan Work Phone: [facility] Work Phone: 10-13-2020 15:48-0400 Body mass index (BMI) [Ratio] 45.2 kg/m2 Dr. Radha Khan Work Phone: [facility] Work Phone: Encounters Encounter Date Encounter Type Care Provider Facility Start: 09-26-2024 Evaluation and manag ement of inpatient Dr. Xiao Berrios MD -Progressive Care Unit Work Phone: Start: 09-26-[address] Radha Khan MD Work Phone: -Progressive Care Unit Start: 09-24-2024 End: 09-24-2024 Subsequent hospital visit by physician [facility] [address] Comment on above: Arrived Start: 09-24-2024 End: 09-24-2024 [facility] Start: 09-24-2024 End: 09-24-2024 Subsequent hospital visit by physician Dick Nguyen MD Work Phone: [facility] Comment on above: ILD (interstitial lavonne ng disease) (Multi) Start: 09-24-2024 End: 09-24-2024 ambulatory [facility] Start: 09-16-2024 End: 09-16-2024 Patient encounter procedure Coreen SHELDON -[facility] Work Phone: Start: 09-16-2024 End: 09-16-[address] Radha Khan MD Work Phone: [facility] Work Phone: Start: 09-15-2024 End: 09-15-[address] Toni Vann MD -[facility] Work Phone: Start: 09-15-2024 End: 09-15-[address] Radha Khan MD Work Phone: [facility] Work Phone: Start: 08-28-2024 End: 08-28-2024 Office outpatient visit 40 minutes Rosalino Padron MD Work Phone: [facility] Comment on above: ILD (interstitial lavonne ng disease) (Multi) (Primary Dx); Chronic respiratory failure with hypoxia; KIANNA (obstructive sleep apnea); BMI 40.0-44.9, adult (Multi); Diastolic heart failure, unspecified HF chronicity Start: 08-28-2024 End: 08-28-[address] [facility] Start: 08-18-2024 End: 08-18-2024 Subsequent hospital visit by physician Oni Rousseau Pft Rm 2 [facility] Comment on above: ILD (interstitial lavonne ng disease) (Multi) Start: 08-18-2024 End: 08-18-[address] [facility] Start: 08-17-2024 End: 08-17-[address] Toni Vann MD -[facility] Work Phone: Start: 08-17-2024 End: 08-17-2024 Dr. Toni Vann MD -[facility] Work Phone: Start: 08-17-2024 End: 08-17-[address] Radha Khan MD Work Phone: [facility] Work Phone: Start: 08-12-2024 End: 08-12-2024 Patient encounter procedure Sumanth Hanna MD -[facility] Work Phone: Start: 08-12-2024 End: 08-12-2024 Sumanth Hanna MD -[facility] Work Phone: Start: 08-12-2024 End: 08-12-[address] Radha Khan MD Work Phone: [facility] Work Phone: Start: 08-12-2024 End: 08-12-2024 ambulatory [facility] Facility:[facility] Start: 08-07-2024 End: 08-07-2024 Office outpatient visit 40 minutes Rosalino Padron MD Work Phone: [facility] Comment on above: ILD (interstitial lavonne ng disease) (Multi) (Primary Dx); Chronic respiratory failure with hypoxia; KIANNA (obstructive sleep apnea); BMI 40.0-44.9, adult (Multi); Diastolic heart failure, unspecified HF chronicity Start: 08-07-2024 End: 08-07-2024 ambulatory ROSALINO PADRON [facility] Start: 08-06-2024 End: 08-06-[address] Toni Vann MD -[facility] Work Phone: Start: 08-06-2024 End: 08-06-2024 Dr. Toni Vann MD -[facility] Work Phone: Start: 08-06-2024 End: 08-06-2024 ambulatory Toni Sandersonmeek Facility:[facility] Start: 07-24-2024 End: 07-24-2024 Subsequent hospital visit by physician Clifford kamara Pft Room [facility] Comment on above: ILD (interstitial lavonne ng disease) (Multi) Start: 07-24-2024 End: 07-24-2024 ambulatory [facility] Start: 07-23-2024 End: 07-23-2024 Subsequent hospital visit by physician Michael Garcia [facility] Comment on above: Pulmonary hypertensi on (Multi) Start: 07-23-2024 End: 07-23-[address] [facility] Start: 07-20-2024 End: 07-20-2024 Subsequent hospital visit by physician Lorenza C[address] [facility] Comment on above: ILD (interstitial lavonne ng disease) (Multi) Start: 07-20-2024 End: 07-20-2024 ambulatory [facility] Start: 07-06-2024 End: 07-06-[address] Toni Vann MD -[facility] Work Phone: Start: 07-06-2024 End: 07-06-2024 Dr. Toni Vann MD -[facility] Work Phone: Start: 07-06-2024 End: 07-06-2024 ambulatory Toni Vann Facility:[facility] Start: 06-26-2024 End: 06-26-2024 Office outpatient new 60 minutes Rosalino Padron MD Work Phone: [facility] Comment on above: ILD (interstitial lavonne ng disease) (Multi) (Primary Dx); Pulmonary hypertension (Multi); Chronic respiratory failure with hypoxia (Multi) Start: 06-26-2024 End: 06-26-[address] [facility] Start: 06-10-2024 End: 06-10-2024 Patient encounter procedure SAV Rojas -[facility] Work Phone: Start: 06-10-2024 End: 06-10-2024 TREE KILLER Chen Rojas -[facility] Work Phone: Start: 06-10-2024 End: 06-10-2024 ambulatory Radha Khan Facility:[facility] Start: 06-04-2024 End: 06-04-[address] Toni Vann MD -[facility] Work Phone: Start: 06-04-2024 End: 06-04-2024 Dr. Toni Vann MD -[facility] Work Phone: Start: 06-04-2024 End: 06-04-2024 ambulatory Toni Vann Facility:[facility] Start: 06-02-2024 End: 06-02-2024 Patient encounter procedure TREE KILLER Chen Rojas -Sleep [facility] Work Phone: Start: 06-02-2024 End: 06-02-2024 TREE KILLER Chen Rojas -Sleep Lab Work Phone: Start: 06-02-2024 End: 06-02-2024 ambulatory Chen Rojas Facility:[facility] Start: 05-28-2024 Non-patient / Non-visit Dr. Jemima MCRAE -[facility] Work Phone: Start: 05-28-2024 ambulatory Lydia GRIFFITHS Facility:[facility] Start: 05-28-2024 Registered Referred Lydia Segura PA -Cardiovascular Services Work Phone: Start: 05-28-2024 Dr. Sumanth Hanna MD -[facility] Work Phone: Start: 05-21-2024 End: 05-21-2024 Patient encounter procedure Lydia Segura PA -Laboratory Work Phone: Start: 05-21-2024 End: 05-21-2024 Lydia Segura PA -Laboratory Work Phone: Start: 05-21-2024 End: 05-21-2024 Patient encounter procedure Lydia GRIFFITSH -[facility] Work Phone: Start: 05-21-2024 End: 05-21-2024 Lydia GRIFFITHS -[facility] Work Phone: Start: 05-21-2024 End: 05-21-2024 ambulatory Radha S Jolliff Facility:[facility] Start: 05-21-2024 End: 05-21-2024 ambulatory Lydia GRIFFITHS Facility:[facility] Start: 05-08-2024 End: 05-08-2024 Telephone encounter Oziel Culp MD Work Phone: [facility] Start: 05-07-2024 End: 05-08-2024 Orders Only Mey Rodriguezdhiraj 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 - [employer]ER Work Phone: [facility] Comment on above: Bilateral carotid ar christine stenosis (Primary Dx) Start: 05-06-2024 End: 05-06-2024 Subsequent hospital visit by physician Ach Ecg [facility] Comment on above: Arrived Ischemic cerebrovasc ular accident (CVA) (HCC); Bilateral carotid artery stenosis Start: 05-06-2024 End: 05-06-2024 ambulatory MEY LOYA [facility] Start: 05-05-2024 End: 05-05-2024 Dr. Rito Lundberg MD -[facility] Work Phone: Start: 05-05-2024 End: 05-05-2024 ambulatory Radha S Jolliff Facility:[facility] Start: 05-01-2024 End: 05-01-2024 TREE KILLER Chen Rojas -[facility] Work Phone: Start: 05-01-2024 End: 05-01-2024 ambulatory Radha S Jolliff Facility:[facility] Start: 04-30-2024 End: 04-30-2024 Dr. Ochoa Dobbs MD -[facility] Work Phone: Start: 04-30-2024 End: 04-30-2024 ambulatory Radha S Jolliff Facility:[facility] Start: 04-30-2024 End: 04-30-2024 Dr. Toni Vann MD -[facility] Work Phone: Start: 04-30-2024 End: 04-30-2024 ambulatory Toni Vann Facility:[facility] Start: 04-27-2024 End: 04-27-2024 Office outpatient visit 25 minutes Suzy Jauregui MD Work Phone: [facility] Comment on above: Cerebrovascular acci dent (CVA), unspecified mechanism (HCC) (Primary Dx); Bilateral carotid artery stenosis Start: 04-27-2024 End: 04-27-2024 ambulatory [facility] Start: 04-25-2024 Dr. Ochoa Johnson DO -[facility] Work Phone: Start: 04-24-2024 ambulatory Daniel Tarun Facility: [facility] Start: 04-24-2024 End: 04-25-2024 Evaluation and management of inpatient Ochoa Johnson Facility:[facility] Start: 04-24-2024 End: 04-25-2024 Dr. Ochoa Johnson DO -Progressive Care Un it Work Phone: Start: 04-24-2024 End: 04-24-2024 Dr. Radha Khan MD -Laboratory [facility] Start: 04-24-2024 End: 04-24-2024 ambulatory Radha Khan Facility:[facility] Start: 04-23-2024 End: 04-23-2024 Telephone encounter Coreen Clifton RN [facility] Special Procedur es Start: 04-22-2024 End: 04-22-2024 SAV Rojas -[facility] Work Phone: Start: 04-22-2024 End: 04-22-2024 ambulatory Chen Rojas Facility:[facility] Start: 04-20-2024 ambulatory Ochoa Dobbs [facility] Start: 04-16-2024 End: 04-16-2024 Coreen Gerardo TREE KILLER-C -[facility] Work Phone: Start: 04-16-2024 End: 04-16-2024 ambulatory Radha S Jolliff Facility:[facility] Start: 04-15-2024 Dr. Cuco Soler MD -[facility] Inpatient Physicians Work Phone: Start: 04-14-2024 ambulatory Radha S Jolliff Facility: [facility] Start: 04-13-2024 ambulatory Radha S Jolliff Facility: [facility] Start: 04-12-2024 ambulatory Radha S Jolliff Facility: [facility] Start: 04-12-2024 End: 04-15-2024 Evaluation and management of inpatient Radha S Jolliff Facility:[facility] Start: 04-12-2024 End: 04-15-2024 Dr. Cuco Soler MD -Progressive [facility] Work Phone: Start: 04-09-2024 End: 04-09-2024 ambulatory Radha S Jolliff Facility:[facility] Start: 04-06-2024 End: 04-06-2024 Subsequent hospital visit by physician Suzy Jauregui MD Work Phone: [facility] Comment on above: Bilateral carotid ar christine occlusion Start: 04-06-2024 End: 04-06-2024 ambulatory [facility] Start: 03-30-2024 End: 03-30-2024 ambulatory Radha S Jolliff Facility:[facility] Start: 03-30-2024 ambulatory Radha S Jolliff Facility: [facility] Start: 03-30-2024 End: 03-30-2024 ambulatory Radha S Jolliff Facility:[facility] Start: 03-27-2024 ambulatory Radha S Jolliff Facility: [facility] Start: 03-27-2024 End: 03-27-2024 ambulatory Radha S Jolliff Facility:[facility] Start: 03-23-2024 End: 03-23-2024 ambulatory Radha S Jolliff Facility:[facility] Start: 03-13-2024 End: 03-13-2024 ambulatory Radha S Jolliff Facility:[facility] Start: 03-03-2024 ambulatory Nagrulaadee Deb Fa cility:[facility] Start: 03-02-2024 ambulatory Xiao Berrios [facility] Start: 03-02-2024 End: 03-04-2024 Evaluation and management of inpatient Xiao Berrios Facility:[facility] Start: 02-26-2024 End: 02-26-2024 Emergency department patient visit Radha Khan Facility:[facility] Start: 02-21-2024 ambulatory Mireya Garcia Fayi ty:[facility] Start: 02-20-2024 End: 02-20-2024 ambulatory Toni Reneemeek Facility:[facility] Start: 02-18-2024 End: 02-18-2024 ambulatory Radha S Samanthalliff Facility:[facility] Start: 02-13-2024 End: 02-13-2024 Orders Only Mey Loya 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 - [employer] Work Phone: [facility] Comment on above: Ischemic cerebrovasc ular accident (CVA) (HCC) (Primary Dx); Bilateral carotid artery stenosis Start: 02-07-2024 End: 02-07-2024 ambulatory Radha S Samanthalliff Facility:[facility] Start: 02-06-2024 End: 03-04-2024 Telephone encounter Oziel Culp MD Work Phone: [facility] Clinical Communication Start: 02-06-2024 End: 02-06-2024 Subsequent hospital visit by physician Oziel Culp MD Work Phone: [facility] [address] Comment on above: Arrived Start: 02-06-2024 End: 02-06-2024 ambulatory [facility] Start: 02-06-2024 End: 02-06-2024 ambulatory Radha S Jolliff Facility:[facility] Start: 02-05-2024 End: 02-05-2024 ambulatory [facility] Start: 02-03-2024 End: 02-03-2024 ambulatory Radha S Jolliff Facility:[facility] Start: 01-21-2024 End: 01-22-2024 ambulatory 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: [facility] Comment on above: Chronic kidney disea se, unspecified CKD stage (Primary Dx) Start: 01-10-2024 End: 01-10-2024 ambulatory Radha S Jolliff Facility:[facility] Start: 01-06-2024 End: 01-06-2024 Office outpatient visit 25 minutes Oziel Culp MD Work Phone: [facility] Comment on above: Bilateral carotid ar christine stenosis (Primary Dx); Ischemic cerebrovascular accident (CVA) (HCC) Start: 01-06-2024 End: 01-06-2024 ambulatory OZIEL CULP [facility] Start: 01-01-2024 ambulatory Oren Sky TREE KILLER Facility [facility] Start: 01-01-2024 End: 01-01-2024 ambulatory Oren Sky TREE KILLER Facility:[facility] Start: 12-26-2023 End: 12-26-2023 ambulatory Radha S Jolliff Facility:[facility] Start: 12-19-2023 End: 12-19-2023 ambulatory Toni Badnelson Facility:[facility] Start: 12-12-2023 End: 12-12-2023 ambulatory Radha S Jolliff Facility:[facility] Start: 12-12-2023 End: 12-12-2023 ambulatory Oren Sky TREE KILLER Facility:[facility] Start: 12-06-2023 End: 12-06-2023 ambulatory Radha S Jolliff Facility:[facility] Start: 11-27-2023 End: 11-27-2023 ambulatory Radha S Jolliff Facility:[facility] Start: 11-18-2023 End: 11-18-2023 ambulatory Toni Baddomeek Facility:[facility] Start: 11-16-2023 End: 11-16-2023 Emergency department patient visit Armin Fermin Facility:[facility] Start: 11-14-2023 End: 11-14-2023 ambulatory Bethany Shelley Facility:[facility] Start: 11-14-2023 End: 11-14-2023 Evaluation and management of inpatient Edmund Dey Facility:[facility] Start: 11-14-2023 ambulatory Eduin Latif ty:[facility] Start: 11-14-2023 ambulatory Edmund Dey [facility] Start: 11-04-2023 End: 11-04-2023 ambulatory Radha S Jolliff Facility:[facility] Start: 10-30-2023 End: 10-31-2023 ambulatory Radha S Jolliff Facility:[facility] Start: 10-29-2023 End: 10-29-2023 ambulatory Radha S Jolliff Facility:[facility] Start: 10-17-2023 End: 10-17-2023 ambulatory Radha S Jolliff Facility:[facility] Start: 10-14-2023 End: 10-14-2023 ambulatory Radha S Jolliff Facility:[facility] Start: 10-14-2023 End: 10-14-2023 ambulatory Radha S Jolliff Facility:[facility] Start: 10-08-2023 End: 10-08-2023 ambulatory Bethanyflorentino Shelley Facility:[facility] Start: 10-08-2023 ambulatory Radha S Jolliff Facility: [facility] Start: 10-03-2023 End: 10-05-2023 Evaluation and management of inpatient Joe Rocha MD Work Phone: [facility] Cardiac Post Intervention Progressive Care Unit [facility] PCU 4W Comment on above: Cerebrovascular acci dent (CVA), unspecified mechanism (HCC) (Primary Dx) Start: 10-01-2023 End: 10-03-2023 Evaluation and management of inpatient 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 Radha Khan Work Phone: [facility] Work Phone: Start: 08-05-2023 End: 08-05-[address] Radha Khan Work Phone: [facility]-Laboratory Work Phone: Start: 07-17-2023 End: 07-17-[address] Radha Khan Work Phone: [facility] Work Phone: Start: 07-03-2023 End: 07-03-[address] Radha Khan Work Phone: [facility] Work Phone: Start: 06-06-2023 End: 06-06-[address] Radha Khan Work Phone: [facility] Work Phone: Start: 06-06-2023 End: 06-06-[address] Radha Khan Work Phone: [facility] Work Phone: Start: 05-21-2023 End: 05-21-[address] Radha Khan Work Phone: [facility] Work Phone: Start: 05-20-2023 End: 05-20-[address] Radha Khan Work Phone: [facility] Work Phone: Start: 05-01-2023 Non-patient / Non-visit Dr. Armen Khan Work Phone: [facility] Start: 05-01-2023 End: 05-01-[address] Radha Khna Work Phone: [facility] Work Phone: Start: 05-01-2023 End: 05-01-[address] Radha Khan Work Phone: [facility]-Cardiovascula r Services Work Phone: Start: 04-25-2023 End: 04-25-[address] Radha Khan Work Phone: [facility] Work Phone: Start: 04-25-2023 End: 04-25-[address] Radha Khan Work Phone: [facility]-Laboratory Work Phone: Start: 04-25-2023 End: 04-25-[address] Radha Khan Work Phone: [facility] Work Phone: Start: 03-15-2023 Non-patient / Non-visit Dr. Armen Khan Work Phone: [facility] Start: 03-15-2023 End: 03-15-[address] Radha Khan Work Phone: [facility] Work Phone: Start: 03-15-2023 End: 03-15-[address] Radha Khan Work Phone: [facility] Work Phone: Start: 03-12-2023 End: 03-12-[address] Radha Khan Work Phone: [facility] Work Phone: Start: 02-28-2023 End: 02-28-[address] Radha Khan Work Phone: [facility] Work Phone: Start: 02-28-2023 End: 02-28-[address] [facility] Start: 02-28-2023 End: 02-28-[address] Radha Khan Work Phone: [facility] Work Phone: Start: 02-27-2023 End: 02-27-[address] Radha Khan Work Phone: [facility] Work Phone: Start: 02-26-2023 End: 02-26-[address] Radha Khan Work Phone: [facility] Work Phone: Start: 02-26-2023 End: 02-26-[address] Radha Khan Work Phone: [facility] Work Phone: Start: 02-18-2023 End: 02-18-2023 Admission to same day surgery center Dr. Radha Khan Work Phone: [facility]-Surgical Day Care Start: 02-18-2023 End: 02-18-[address] Radha Khan Work Phone: [facility] Work Phone: Start: 02-04-2023 End: 02-04-[address] Radha Khan Work Phone: [facility] Work Phone: Start: 01-15-2023 End: 01-15-[address] Radha Khan Work Phone: [facility] Work Phone: Start: 01-15-2023 End: 01-15-[address] Radha Khan Work Phone: [facility] Work Phone: Start: 01-07-2023 End: 01-07-[address] Radha Khan Work Phone: [facility] Work Phone: Start: 01-07-2023 End: 01-07-[address] Radha Khan Work Phone: [facility] Work Phone: Start: 01-01-2023 End: 01-01-[address] Radha Khan Work Phone: [facility] Work Phone: Start: 01-01-2023 End: 01-01-[address] Radha Khan Work Phone: [facility]-Laboratory, Specimen Work Phone: Start: 12-31-2022 End: 12-31-[address] Radha Khan Work Phone: [facility] [place] [place] Work Phone: Start: 12-10-2022 End: 12-10-[address] Radha Khan Work Phone: [facility] Work Phone: Start: 11-09-2022 End: 11-09-[address] Radha Khan Work Phone: [facility] Work Phone: Start: 11-09-2022 End: 11-09-[address] Radha Khan Work Phone: [facility] Work Phone: Start: 11-07-2022 End: 11-07-[address] Radha Khan Work Phone: [facility] Work Phone: Start: 11-07-2022 End: 11-07-[address] Radha Khan Work Phone: [facility] Work Phone: Start: 10-31-2022 End: 10-31-[address] Radha Khan Work Phone: [facility] Work Phone: Start: 10-31-2022 End: 10-31-[address] Radha Khan Work Phone: [facility] Start: 10-12-2022 End: 10-12-[address] Radha Khan Work Phone: [facility] Work Phone: Start: 10-12-2022 End: 10-12-[address] Radha Khan Work Phone: [facility] Work Phone: Start: 10-08-2022 End: 10-08-[address] Radha Khan Work Phone: [facility] Work Phone: Start: 10-01-2022 Non-patient / Non-visit Dr. Armen Khan Work Phone: [facility] Start: 10-01-2022 End: 10-01-[address] Radha Khan Work Phone: [facility] Work Phone: Start: 10-01-2022 End: 10-01-[address] Radha Khan Work Phone: [facility]Cardiovascula r Services Work Phone: Start: 09-03-2022 End: 09-03-[address] Radha Khan Work Phone: [facility] Work Phone: Start: 08-03-2022 Non-patient / Non-visit Dr. Armen Khan Work Phone: [facility] Start: 08-02-2022 Non-patient / Non-visit Dr. Armen Khan Work Phone: [facility] Start: 08-01-2022 End: 08-03-2022 Evaluation and management of inpatient Dr. Radha Khan Work Phone: [facility]-Progressive Care Unit Start: 08-01-2022 End: 08-03-[address] Radha Khan Work Phone: [facility] Work Phone: Start: 07-27-2022 End: 07-27-[address] Radha Khan Work Phone: [facility] Work Phone: Start: 07-27-2022 End: 07-27-[address] Radha Khan Work Phone: [facility] Start: 06-26-2022 End: 06-26-[address] Radha Khan Work Phone: [facility] Work Phone: Start: 06-26-2022 End: 06-26-[address] Radha Khan Work Phone: [facility] Start: 06-18-2022 End: 06-18-[address] Radha Khan Work Phone: [facility] Start: 06-12-2022 End: 06-12-[address] Radha Khan Work Phone: [facility]-Pulmonary Medicine [facility] Start: 05-21-2022 End: 05-21-[address] Radha Khan Work Phone: [facility] Start: 05-18-2022 End: 05-18-[address] Radha Khan Work Phone: [facility] Start: 05-09-2022 End: 05-09-2022 Admission to same day surgery center Dr. Radha Khan Work Phone: [facility]/Special Procedures Start: 05-09-2022 End: 05-09-[address] Radha Khan Work Phone: [facility] Work Phone: Start: 05-03-[address] Barney Khan Work Phone: [facility] Start: 05-03-2022 End: 05-03-[address] Radha Khan Work Phone: [facility] Start: 04-27-2022 End: 04-27-[address] Radha Khan Work Phone: [facility] Work Phone: Start: 04-27-2022 End: 04-27-[address] Radha Khan Work Phone: [facility] Start: 04-17-2022 End: 04-17-[address] Radha Khan Work Phone: [facility] Work Phone: Start: 04-17-2022 End: 04-17-[address] Radha Khan Work Phone: [facility] Start: 03-12-2022 End: 03-12-[address] Radha Khan Work Phone: [facility] Start: 02-19-2022 End: 02-19-[address] Radha Khan Work Phone: [facility] Heart [facility] Start: 02-17-2022 Non-patient / Non-visit Dr. Armen Khan Work Phone: [facility] Start: 02-16-2022 End: 02-16-[address] Radha Khan Work Phone: [facility] Work Phone: Start: 02-16-2022 End: 02-16-[address] Radha Khan Work Phone: [facility]-Pulmonary Services/Neurology Start: 02-12-2022 End: 02-12-[address] [facility] Start: 01-15-2022 End: 01-15-[address] Radha Khan Work Phone: [facility] Start: 11-13-2021 End: 11-13-[address] Radha Khan Work Phone: [facility] Start: 09-19-2021 End: 09-19-[address] Radha Khan Work Phone: [facility]-Pulmonary Services/Neurology Start: 09-07-2021 End: 09-07-[address] Radha Khan Work Phone: [facility] Heart [facility] Start: 09-04-2021 End: 09-04-2021 Emergency department patient visit Dr. Radha Khan Work Phone: [facility]-Emergency Department Start: 08-14-2021 Non-patient / Non-visit Dr. Armen Khan Work Phone: [facility] Start: 08-14-2021 End: 08-14-[address] Radha Khan Work Phone: [facility]-Cardiovascula r Services Start: 08-10-2021 End: 08-10-[address] Radha Khan Work Phone: [facility] Endocrinology Start: 08-09-2021 End: 08-09-[address] Radha Khan Work Phone: [facility]-Sleep Lab Start: 07-16-2021 End: 07-16-2021 Emergency department patient visit Dr. Radha Khan Work Phone: [facility]-Emergency Department Start: 07-13-2021 End: 07-13-[address] Radha Khan Work Phone: [facility]-Pulmonary Medicine [facility] Start: 07-12-2021 End: 07-12-[address] Radha Khan Work Phone: [facility]-Laboratory Start: 07-12-2021 End: 07-12-[address] Radha Khan Work Phone: [facility] Start: 06-29-2021 End: 06-29-[address] Radha Khan Work Phone: [facility] Endocrinology Start: 06-20-2021 Non-patient / Non-visit Dr. Armen Khan Work Phone: [facility] Start: 06-19-2021 Non-patient / Non-visit Dr. Armen Khan Work Phone: [facility] Start: 06-19-2021 Non-patient / Non-visit Dr. Armen Khan Work Phone: [facility] Start: 06-19-2021 End: 06-20-2021 Evaluation and management of inpatient Dr. Radha Khan Work Phone: [facility] Start: 06-15-2021 Non-patient / Non-visit Dr. Armen Khan Work Phone: [facility] Start: 06-15-2021 End: 06-15-[address] [facility] Start: 06-02-2021 End: 06-02-[address] [facility] Start: 06-02-2021 Non-patient / Non-visit Dr. Armen Khan Work Phone: [facility] Start: 06-01-2021 End: 06-01-[address] Radha Khan Work Phone: [facility] Start: 06-01-2021 End: 06-01-[address] Radha Khan Work Phone: [facility] Endocrinology Start: 05-30-2021 End: 05-30-[address] Radha Khan Work Phone: [facility] Start: 12-27-2010 End: 12-27-2010 Patient encounter procedure Karlos Aquino Work Phone: [facility] Start: 12-27-2010 Results Only Karlos lehman Work Phone: [facility] Procedures Date Procedure Procedure Detail Performing Clinician Start: 09-26-2024 CT of head without contrast Dr. Radha Khan MD Work Phone: Start: 09-24-2024 Radiologic exam ches t single view Maeve Pringle MD Work Phone: Start: 09-24-[facility] Dick Nguyen MD [...] Bilateral Views W contrast IA Mey Loya [facility] Work Phone: Start: 05-06-2024 Ecg routine ecg w/le ast 12 lds trcg only w/o i&r Mey Loya [facility] Work Phone: Start: 05-06-2024 Basic metabolic pane l calcium total Mey Loya [facility] Work Phone: Start: 05-05-2024 Blood count smear [...] End: 10-04-2023 Assay of troponin quantitative Michael Rioc MD Work Phone: Start: 10-04-2023 Lipid panel [...] Author Start: 10-03-2028 Lipid panel Lipid Panel [facility] Start: 09-23-2025 Creatinine measurement Creatinine Level [facility] Start: 09-23-2025 Potassium measurement Potassium Level [facility] Start: 07-23-2025 Echocardiography Echocardiogram [facility] Start: 05-06-2025 Creatinine measurement Creatinine Level [facility] Start: 05-06-2025 Diabetes: Estimated Glomerular Filtration Rate for Kidney Health Diabetes: Estimated Glomerular Filtration Rate for Kidney Health [facility] Start: 05-06-2025 Potassium measurement Potassium Level [facility] Start: 12-04-2024 End: 12-04-2024 Patient encounter procedure 12/04/2024 1:00 PM EDT Office Visit [facility] [id number] [facility] [address] [place] [address] [place] [address] [place] [address] [facility] Start: 10-04-2024 Creatinine measurement Creatinine Level [facility] Start: 10-04-2024 Diabetes: Estimated Glomerular Filtration Rate for Kidney Health Diabetes: Estimated Glomerular Filtration Rate for Kidney Health [facility] Start: 10-04-2024 Potassium measurement Potassium Level [facility] Start: 10-03-2024 Diabetes mellitus screening Diabetes Screening [facility] Start: 10-03-2024 Hemoglobin A1c measurement Diabetes: Hemoglobin A1C [facility] Start: 10-03-2024 Lipid panel Lipid Panel [facility] Start: 09-26-2024 Admission procedure [facility] Start: 09-26-2024 [facility] Start: 09-26-2024 CT angiography of head and neck STROKE CTA Head AND Neck W/Con [facility] Start: 09-26-2024 CTA Head vessels and Neck vessels W contrast IV [facility] Start: 09-26-2024 Hospital admission, emergency, from emergency room, medical nature [facility] Start: 09-26-2024 Oxygen therapy [facility] Start: 09-26-2024 End: 09-26-2024 [facility] Start: 08-28-2024 End: 08-28-2025 DLCO / Diffusion Capacity DLCO / Diffusion Capacity PFT Routine ILD (interstitial lung disease) (Multi) Chronic respiratory failure with hypoxia Expected: 08/28/2024 (Approximate), Expires: 08/28/2025 [facility] Work Phone: Comment on above: Expected: 08/28/2024 (Approximate), Expi res: 08/28/2025 Start: 08-28-2024 End: 08-28-2025 Pulmonary Stress Test (6 Min. Walk) Pulmonary Stress Test (6 Min. Walk) PFT Routine ILD (interstitial lung disease) (Multi) Chronic respiratory failure with hypoxia Expected: 08/28/2024 (Approximate), Expires: 08/28/2025 [facility] Work Phone: Comment on above: Expected: 08/28/2024 (Approximate), Expi res: 08/28/2025 Start: 08-28-2024 End: 08-28-2025 Spirometry Pre/Post Bronchodilator Spirometry Pre/Post Bronchodilator PFT Routine ILD (interstitial lung disease) (Multi) Chronic respiratory failure with hypoxia Expected: 08/28/2024 (Approximate), Expires: 08/28/2025 [facility] Service Area Work Phone: Comment on above: Expected: 08/28/2024 (Approximate), Expi res: 08/28/2025 Start: 08-28-2024 End: 08-28-2024 Patient encounter procedure [facility] Start: 08-12-2024 X-ray of chest, PA and lateral views [facility] Start: 08-07-2024 End: 08-07-2025 DLCO / Diffusion Capacity DLCO / Diffusion Capacity PFT Routine ILD (interstitial lung disease) (Multi) Expected: 08/07/2024 (Approximate), Expires: 08/07/2025 [facility] Work Phone: Comment on above: Expected: 08/07/2024 (Approximate), Expi res: 08/07/2025 Start: 08-07-2024 End: 08-07-2025 Pulmonary Stress Test (6 Min. Walk) Pulmonary Stress Test (6 Min. Walk) PFT Routine ILD (interstitial lung disease) (Multi) Expected: 08/07/2024 (Approximate), Expires: 08/07/2025 [facility] Work Phone: Comment on above: Expected: 08/07/2024 (Approximate), Expi res: 08/07/2025 Start: 08-07-2024 End: 08-07-2025 Spirometry Pre/Post Bronchodilator Spirometry Pre/Post Bronchodilator PFT Routine ILD (interstitial lung disease) (Multi) Expected: 08/07/2024 (Approximate), Expires: 08/07/2025 [facility] Service Area Work Phone: Comment on above: Expected: 08/07/2024 (Approximate), Expi res: 08/07/2025 Start: 07-24-2024 End: 07-24-2024 Patient encounter procedure [facility] Start: 07-23-2024 End: 07-23-2024 Patient encounter procedure 07/23/2024 2:00 PM EDT Appointment [facility] [address] [place] [address] [facility] Start: 07-19-2024 DTaP/Tdap/Td Vaccines (2 - Td or Tdap) DTaP/Tdap/Td Vaccines (2 - Td or Tdap) [facility] Start: 07-13-2024 End: 07-13-2024 Patient encounter procedure 07/13/2024 2:00 PM EDT Appointment [facility] [address] [place] [id number] [facility] Start: 06-26-2024 End: 06-26-2025 Aldolase [Enzymatic activity/volume] in Serum or Plasma Aldolase Lab Routine ILD (interstitial lung disease) (Multi) Expected: 06/26/2024 (Approximate), Expires: 06/26/2025 [facility] Work Phone: Comment on above: Expected: 06/26/2024 (Approximate), Expi res: 06/26/2025 Start: 06-26-2024 End: 06-26-2025 C reactive protein [Mass/volume] in Serum or Plasma C-Reactive Protein Lab Routine ILD (interstitial lung disease) (Multi) Expected: 06/26/2024 (Approximate), Expires: 06/26/2025 [facility] Work Phone: Comment on above: Expected: 06/26/2024 (Approximate), Expi res: 06/26/2025 Start: 06-26-2024 End: 06-26-2025 Complete Pulmonary Function Test (Spirometry/DLCO/Lung Volumes) Complete Pulmonary Function Test (Spirometry/DLCO/Lung Volumes) PFT Routine ILD (interstitial lung disease) (Multi) Expected: 06/26/2024 (Approximate), Expires: 06/26/2025 [facility] Work Phone: Comment on above: Expected: 06/26/2024 (Approximate), Expi res: 06/26/2025 Start: 06-26-2024 End: 06-26-2025 Creatine kinase [Enzymatic activity/volume] in Serum or Plasma Creatine Kinase Lab Routine ILD (interstitial lung disease) (Multi) Expected: 06/26/2024 (Approximate), Expires: 06/26/2025 [facility] Work Phone: Comment on above: Expected: 06/26/2024 (Approximate), Expi res: 06/26/2025 Start: 06-26-2024 End: 06-26-[address] chest high resolution Imaging Routine ILD (interstitial lung disease) (Multi) Expected: 06/26/2024 (Approximate), Expires: 06/26/2025 [facility] Service Area Work Phone: Comment on above: Expected: 06/26/2024 (Approximate), Expi res: 06/26/2025 Start: 06-26-2024 End: 06-26-2025 Cyclic citrullinated peptide IgG Ab [Units/volume] in Serum or Plasma Citrulline Antibody, IgG Lab Routine ILD (interstitial lung disease) (Multi) Expected: 06/26/2024 (Approximate), Expires: 06/26/2025 [facility] Work Phone: Comment on above: Expected: 06/26/2024 (Approximate), Expi res: 06/26/2025 Start: 06-26-2024 End: 06-26-2025 Erythrocyte sedimentation rate Sedimentation Rate Lab Routine ILD (interstitial lung disease) (Multi) Expected: 06/26/2024 (Approximate), Expires: 06/26/2025 [facility] Work Phone: Comment on above: Expected: 06/26/2024 (Approximate), Expi res: 06/26/2025 Start: 06-26-2024 End: 06-26-2025 Extended Myositis Panel Extended Myositis Panel Lab Routine ILD (interstitial lung disease) (Multi) Expected: 06/26/2024 (Approximate), Expires: 06/26/2025 [facility] Work Phone: Comment on above: Expected: 06/26/2024 (Approximate), Expi res: 06/26/2025 Start: 06-26-2024 End: 06-26-2025 Hypersensitivity Pneumonitis Panel Hypersensitivity Pneumonitis Panel Lab Routine ILD (interstitial lung disease) (Multi) Expected: 06/26/2024 (Approximate), Expires: 06/26/2025 [facility] Work Phone: Comment on above: Expected: 06/26/2024 (Approximate), Expi res: 06/26/2025 Start: 06-26-2024 End: 06-26-2025 MPO, PR3 with Reflex to ANCA MPO, PR3 with Reflex to ANCA Lab Routine ILD (interstitial lung disease) (Multi) Expected: 06/26/2024 (Approximate), Expires: 06/26/2025 [facility] Work Phone: Comment on above: Expected: 06/26/2024 (Approximate), Expi res: 06/26/2025 Start: 06-26-2024 End: 06-26-2025 Nuclear Ab [Presence] in Serum by Hep2 substrate RICARDO with Reflex to NEELA Lab Routine ILD (interstitial lung disease) (Multi) Expected: 06/26/2024 (Approximate), Expires: 06/26/2025 [facility] Work Phone: Comment on above: Expected: 06/26/2024 (Approximate), Expi res: 06/26/2025 Start: 06-26-2024 End: 06-26-2025 Pulmonary Stress Test (6 Min. Walk) Pulmonary Stress Test (6 Min. Walk) PFT Routine ILD (interstitial lung disease) (Multi) Expected: 06/26/2024 (Approximate), Expires: 06/26/2025 [facility] Work Phone: Comment on above: Expected: 06/26/2024 (Approximate), Expi res: 06/26/2025 Start: 06-26-2024 End: 06-26-2025 Rheumatoid factor [Units/volume] in Serum by Nephelometry Rheumatoid Factor Lab Routine ILD (interstitial lung disease) (Multi) Expected: 06/26/2024 (Approximate), Expires: 06/26/2025 [facility] Work Phone: Comment on above: Expected: 06/26/2024 (Approximate), Expi res: 06/26/2025 Start: 06-26-2024 End: 06-26-2026 US Heart Transthoracic Transthoracic Echo (TTE) Complete Echocardiography Routine Pulmonary hypertension (Multi) Expected: 06/26/2024 (Approximate), Expires: 06/26/2026 [facility] Work Phone: Comment on above: Expected: 06/26/2024 (Approximate), Expi res: 06/26/2026 Start: 05-06-2024 End: 05-06-2024 Patient encounter procedure 05/06/2024 10:00 AM EST Appointment [facility] [address] [facility] [place] [address] [facility] Start: 04-27-2024 End: 04-27-2024 Patient encounter procedure 04/27/2024 3:00 PM EST Office Visit [facility] [address] [place] [id number] Suzy Jauregui MD [address] [place], [place] [id number] [facility] Start: 04-25-2024 Patient discharge [facility] Start: 04-24-2024 Dual pressure spontaneous ventilation support [facility] Start: 04-24-2024 Aspiration precautions [facility] Start: 04-24-2024 Assessment of risk of venous thromboembolism [facility] Start: 04-24-2024 Cardiac monitoring [facility] Start: 04-24-2024 Care regimes management [facility] Start: 04-24-2024 Catheterization of vein [facility] Start: 04-24-2024 Consultation [facility] Start: 04-24-2024 Continuous pulse oximetry [facility] Start: 04-24-2024 Elevation of head of bed [facility] Start: 04-24-2024 Exercises [facility] Start: 04-24-2024 Fall prevention [facility] Start: 04-24-2024 Inhalation therapy procedure [facility] Start: 04-24-2024 Insertion of catheter into peripheral vein [facility] Start: 04-24-2024 Introduction of urinary catheter [facility] Start: 04-24-2024 Measuring intake and output [facility] Start: 04-24-2024 Notification of physician [facility] Start: 04-24-2024 Oxygen therapy [facility] Start: 04-24-2024 Patient referral to [facility] Start: 04-24-2024 Providing care according to standard [facility] Start: 04-24-2024 Provision of activity privileges [facility] Start: 04-24-2024 Referral to occupational therapist [facility] Start: 04-24-2024 Referral to service [facility] Start: 04-24-2024 Speech therapy assessment [facility] Start: 04-24-2024 Telemedicine consultation with patient [facility] Start: 04-24-2024 Tobacco use cessation education [facility] Start: 04-24-2024 End: 04-24-2024 [facility] Start: 04-24-2024 Following clinical pathway protocol [facility] Start: 04-24-2024 Admission procedure [facility] Start: 04-24-2024 Patient referral to [facility] Start: 04-24-2024 [facility] Start: 04-15-2024 Referral to service [facility] Start: 04-15-2024 Patient discharge [facility] Start: 04-15-2024 Fluid restriction [facility] Start: 04-14-2024 [facility] Start: 04-13-2024 Consultation [facility] Start: 04-13-2024 [facility] Start: 04-13-2024 Elevation of head of bed [facility] Start: 04-13-2024 Patient education [facility] Start: 04-13-2024 [facility] Start: 04-12-2024 Following clinical pathway protocol [facility] Start: 04-12-2024 Ambulation without limitation [facility] Start: 04-12-2024 Assessment of risk of venous thromboembolism [facility] Start: 04-12-2024 Care regimes management [facility] Start: 04-12-2024 Catheterization of vein [facility] Start: 04-12-2024 Elevation of affected extremity [facility] Start: 04-12-2024 Inhalation therapy procedure [facility] Start: 04-12-2024 Insertion of catheter into peripheral vein [facility] Start: 04-12-2024 Measuring intake and output [facility] Start: 04-12-2024 Notification of physician [facility] Start: 04-12-2024 Oxygen therapy [facility] Start: 04-12-2024 Patient education [facility] Start: 04-12-2024 Providing care according to standard [facility] Start: 04-12-2024 End: 04-12-2024 [facility] Start: 04-12-2024 Admission procedure [facility] Start: 04-12-2024 Patient referral to dietitian [facility] Start: 02-13-2024 End: 02-12-2025 RFA Cerebral arteries Bilateral Views W contrast IA IR angiogram cerebral with possible intervention Imaging Routine Ischemic cerebrovascular accident (CVA) (HCC) Bilateral carotid artery stenosis Expected: 02/13/2024, Expires: 02/12/2025 [facility] [employer] Work Phone: Comment on above: Expected: 02/13/2024, Expires: Start: 01-22-2024 Subsequent hospital visit by physician 01/22/2024 10:45 AM EDT Hospital Encounter [facility] [address] [place] [address] Oziel Culp MD [address] [place] [address] [facility] [address] Start: 01-20-2024 End: 01-05-2025 CTA Head vessels and Neck vessels WO and W contrast IV CTA head neck angio w and wo IV contrast Imaging Routine Bilateral carotid artery stenosis Ischemic cerebrovascular accident (CVA) (HCC) Expected: 01/20/2024, Expires: 01/05/2025 [employer] Work Phone: Comment on above: Expected: 01/20/2024, Expires: Start: 01-16-2024 End: 01-15-2025 Creatinine [Mass/volume] in Serum or Plasma Creatinine, Serum Lab Routine Chronic kidney disease, unspecified CKD stage Expected: 01/16/2024 (Approximate), Expires: 01/15/2025 [employer] Work Phone: Comment on above: Expected: 01/16/2024 (Approximate), Expi res: 01/15/2025 Start: 12-01-2023 Influenza vaccination Influenza Vaccine (#1) [facility] [employer] Start: 2023 RSV Immunization aged 60 or older (1 - 1-dose 60+ series) RSV Immunization aged 60 or older (1 - 1-dose 60+ series) [facility] Start: 2023 RSV Immunization for Adults (1 - Risk 60-74 years 1-dose series) RSV Immunization for Adults (1 - Risk 60-74 years 1-dose series) [facility] Start: 07-03-2023 Patient referral [facility] Work Phone: Start: 02-18-2023 Anesthesia cervical spine & cord nos ANESTH SPINE CORD SURGERY [facility] Start: 02-18-2023 Njx dx/ther agt pvrt facet jt crv/thrc 1 level INJ PARAVERT F JNT C/T 1 LEV [facility] Start: 02-18-2023 Njx dx/ther agt pvrt facet jt crv/thrc 2nd level INJ PARAVERT F JNT C/T 2 [facility] Start: 02-18-2023 Njx dx/ther agt pvrt facet jt crv/thrc 3+ level INJ PARAVERT F JNT C/T 3 [facility] Start: 02-18-2023 Fluoroscopy guided injection of cervical spinal nerve root OR-Steroid Inj/Cer Thor/1st L [facility] Start: 02-18-2023 Injection of facet joint [facility] Start: 02-18-2023 X-ray of cervical spine Cerv Spine 4 or 5 Views [facility] Start: 02-18-2023 Patient discharge [facility] Start: 12-10-2022 Patient referral [facility] Work Phone: Start: 10-08-2022 Patient referral [facility] Work Phone: Start: 08-03-2022 Patient discharge [facility] Start: 08-03-2022 Referral to occupational therapist [facility] Start: 08-03-2022 Referral to service [facility] Start: 08-02-2022 [facility] Start: 08-02-2022 Following clinical pathway protocol [facility] Start: 08-02-2022 Assessment of risk of venous thromboembolism [facility] Start: 08-02-2022 Cardiac monitoring [facility] Start: 08-02-2022 Care regimes management [facility] Start: 08-02-2022 Catheterization of vein [facility] Start: 08-02-2022 Elevation of head of bed [facility] Start: 08-02-2022 Exercises [facility] Start: 08-02-2022 Fall prevention [facility] Start: 08-02-2022 Implementation of planned interventions [facility] Start: 08-02-2022 Inhalation therapy procedure [facility] Start: 08-02-2022 Insertion of catheter into peripheral vein [facility] Start: 08-02-2022 Introduction of urinary catheter [facility] Start: 08-02-2022 Measuring intake and output [facility] Start: 08-02-2022 Notification of physician [facility] Start: 08-02-2022 Oxygen therapy [facility] Start: 08-02-2022 End: 08-02-2022 Patient referral to dietitian [facility] Start: 08-02-2022 Providing care according to standard [facility] Start: 08-02-2022 Provision of activity privileges [facility] Start: 08-02-2022 Referral to occupational therapist [facility] Start: 08-02-2022 Referral to service [facility] Start: 08-02-2022 Speech therapy assessment [facility] Start: 08-02-2022 Tobacco use cessation education [facility] Start: 08-02-2022 [facility] Start: 08-01-2022 Admission procedure [facility] Start: 08-14-2021 Radionuclide imaging of perfusion of myocardium under exercise stress Nuclear Stress Test - Treadmil [facility] Work Phone: Start: 06-20-2021 Patient discharge [facility] Work Phone: Start: 06-19-2021 Following clinical pathway protocol [facility] Work Phone: Start: 06-19-2021 Care regimes management [facility] Work Phone: Start: 06-19-2021 Notification of physician [facility] Work Phone: Start: 06-19-2021 End: 06-19-2021 [facility] Work Phone: Start: 06-19-2021 Admission procedure [facility] Work Phone: Start: 08-05-2020 COVID-19 Vaccine (3 - Moderna risk series) COVID-19 Vaccine (3 - Moderna risk series) [facility] Start: 07-03-2020 PROSTATE CANCER SCREENING DISCUSSION PROSTATE CANCER SCREENING DISCUSSION [facility] Start: 12-01-2019 Influenza vaccination INFLUENZA (#1) [facility] Start: 09-20-2016 Thyroid stimulating hormone measurement TSH Level [facility] Start: 09-09-2016 [object Object] DIABETIC FOOT EXAM [facility] Start: 12-12-2015 HbA1c (Bld) [Mass fraction] HBA1C [facility] Start: 12-07-2015 Pneumococcal vaccination Pneumococcal Vaccine (2 of 2 - PCV) [facility] Start: 12-07-2015 Pneumococcal Vaccine: 50+ Years (2 of 2 - PCV) Pneumococcal Vaccine: 50+ Years (2 of 2 - PCV) [facility] Start: 12-07-2015 Pneumococcal Vaccine: Pediatrics (0 to 5 Years) and At-Risk Patients (6 to 64 Years) (2 of 2 - PCV) Pneumococcal Vaccine: Pediatrics (0 to 5 Years) and At-Risk Patients (6 to 64 Years) (2 of 2 - PCV) [facility] Start: 08-24-2013 SHINGRIX VACCINE (1 of 2) SHINGRIX VACCINE (1 of 2) [facility] Start: 08-24-2013 Tuberculosis screening COLORECTAL CANCER SCREENING,SEE MODIFIER [facility] Start: 03-10-2009 MMR Vaccines (1 of 1 - Standard series) MMR Vaccines (1 of 1 - Standard series) [facility] Start: 08-24-1982 Urine microalbumin profile DTAP,TDAP,TD (1 - Tdap) [facility] Start: 08-24-1981 ANNUAL PCP TEAM CHRONIC DISEASE VISIT ANNUAL PCP TEAM CHRONIC DISEASE VISIT [facility] Start: 08-24-1981 BP CONTROLLED (<130/80) BP CONTROLLED (<130/80) [facility] Start: 08-24-1981 Diabetes: Urine Albumin-Creatinine Ratio for Kidney Health Diabetes: Urine Albumin-Creatinine Ratio for Kidney Health [facility] Start: 08-24-1981 Hepatitis B surface antibody level LDL CHOLESTEROL [facility] Start: 08-24-1981 HEPATITIS C SCREENING HEPATITIS C SCREENING [facility] Start: 08-24-1981 Hepatitis C screening Hepatitis C Screening [facility] Start: 08-24-1981 HIV SCREENING HIV SCREENING [facility] Start: 1975 Depression Screening Depression Screening [facility] Start: 08-24-1973 Diabetic foot examination Diabetes: Foot Exam [facility] Start: 08-24-1973 Glaucoma screening Diabetes: Retinopathy Screening [facility] Start: 08-24-1973 Hepatitis B screening URINE ALBUMIN:CREATININE RATIO [facility] Start: 08-24-1973 Hepatitis C antibody, confirmatory test DILATED RETINAL EXAM [facility] Start: 08-24-1973 Preventive dental service Diabetes: Dental Exam [facility] Start: 1963 Creatinine measurement Creatinine Level [facility] Start: 1963 Echocardiography Echocardiogram [facility] Start: 1963 HIV screening HIV Screening [facility] Start: 1963 Potassium measurement Potassium Level [facility] Start: 1963 Screening for malignant neoplasm of colon [facility] Start: 1963 Skin Cancer Screening Skin Cancer Screening [facility] Start: 1963 Thyroid stimulating hormone measurement TSH Level [facility] Start: 1963 Yearly Adult Physical Yearly Adult Physical [facility] Aspergillus Galactom vicenta EIA (Non-Blood Specimen) [facility] Work Phone: Comment on above: Release Upon Ordering for 1 Occurrences starting 09/24/2024 Bacteria identified in Unspecified specimen by Respiratory culture Respiratory Culture/Smear Microbiology Routine ILD (interstitial lung disease) ([facility]) 09/24/2024 8:39 AM EDT [facility] Work Phone: CBC W Auto Different ial panel - Blood [facility] End: 07-24-2024 Complete Pulmonary Function Test (Spirometry/DLCO/Lung Volumes) [facility] Service Area Work Phone: Comment on above: Once for 1 Occurrences starting 07/25/19 until 07/24/2024 DLCO / Diffusion Capacity DLCO / Diffusion Capacity PFT Routine ILD (interstitial lung disease) ([facility]) 08/18/2024 10:39 AM EDT [facility] Area Work Phone: ECG 12 lead ECG 12 lead CV E CG Routine 05/06/2024 9:00 AM EST [facility] Work Phone: Ferritin [Mass/volum e] in Serum or Plasma [facility] Folate [Mass/volume] in Serum or Plasma [facility] Fungus identified in Unspecified specimen by Culture [facility] Work Phone: Comment on above: Release Upon Ordering for 1 Occurrences starting 09/24/2024 Hepatic function panel [facility] Histoplasma capsulat um Ag [Units/volume] in Serum by Immunoassay [facility] Work Phone: Comment on above: Release Upon Ordering for 1 Occurrences starting 09/24/2024 Iron and Iron bindin g capacity panel - Serum or Plasma [facility] [place] and lambda lig ht chains [facility] Legionella PCR Panel [facility] Work Phone: Comment on above: Release Upon Ordering for 1 Occurrences starting 09/24/2024 Lipid 1996 panel - S verna or Plasma [facility] Lipid 1996 panel - S [facility] or Plasma [facility] Mycobacterium sp identified in Unspecified specimen by Organism specific culture [facility] Work Phone: Comment on above: Release Upon Ordering for 1 Occurrences starting 09/24/2024, 1 completed NM Heart Views W str ess and W radionuclide IV [facility] Work Phone: Non-gynecological cytology method study [facility] Work Phone: Comment on above: Release Upon Ordering for 1 Occurrences starting 09/24/2024, 1 completed End: 09-24-2024 Pathologist review of results [facility] Work Phone: Comment on above: Once (Lab) for 1 Occurrences starting until 09/24/2024, 1 completed Patient Education [facility] Work Phone: Patient referral [facility] Work Phone: End: 07-24-2024 Pulmonary Stress Test (6 Min. Walk) [facility] Work Phone: Comment on above: Once for 1 Occurrences starting 07/25/19 until 07/24/2024 Pulmonary Stress Karly t (6 Min. Walk) Pulmonary Stress Test (6 Min. Walk) PFT Routine ILD (interstitial lung disease) ([facility]) 08/18/2024 11:30 AM EDT [facility] Work Phone: Reticulocyte count [facility] Spirometry Pre/Post Bronchodilator Spirometry Pre/Post Bronchodilator PFT Routine ILD (interstitial lung disease) ([facility]) 08/18/2024 11:36 AM EDT [facility] Work Phone: Surgical pathology study [facility] Work Phone: Comment on above: Release Upon Ordering for 1 Occurrences starting 09/24/2024, 1 completed End: 09-24-2024 T-cell subsets CD4 and CD8 panel - Blood [facility] Work Phone: Comment on above: Release Upon Ordering for 1 Occurrences starting 09/24/2024 Once for 1 Occurrenc es starting 09/24/2024 until 09/24/2024 T4 free measurement [facility] T4 free measurement [facility] T4 free measurement [facility] Thiamine measurement [facility] Thyroid stimulating hormone measurement [facility] Thyroid stimulating hormone measurement [facility] Thyroid stimulating hormone measurement [facility] Troponin T.cardiac [Mass/volume] in Serum or Plasma by High sensitivity method [facility] Troponin T.cardiac [Mass/volume] in Serum or Plasma by High sensitivity method [facility] Carotid arteries [facility] Work Phone: Carotid arteries [facility] Carotid arteries [facility] End: 07-23-2024 US Heart Transthoracic [facility] Service Area Work Phone: Comment on above: Once for 1 Occurrences starting 07/24/19 25 until 07/23/2024 Vitamin B12 measurement [facility] Immunizations Immunization Date Immunization Notes Care Provider Fa [facility] 01-13-2024 RSV Adult Recombinan t (Arexvy) Dr. Radha Khan MD Work Phone: [facility] 01-10-2024 influenza, seasonal, injectable, preservative free Dr. Radha Khan MD Work Phone: [facility] 01-18-2023 influenza virus vacc ine, unspecified formulation 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 [facility] 01-18-2023 influenza, injectabl e, quadrivalent, preservative free Oziel Culp MD Work Phone: [facility] [employer] 02-01-2022 zoster vaccine recombinant 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 [facility] 01-26-2022 influenza virus vacc ine, unspecified formulation [employer]ITO BUENRO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 [facility] 01-26-2022 influenza, injectabl e, quadrivalent, contains preservative Oziel Culp MD Work Phone: [facility] 01-26-2022 influenza, injectabl e, quadrivalent, preservative free Dr. Radha Khan Work Phone: [facility] 01-26-2022 influenza, seasonal, injectable Dr. Radha Khan Work Phone: [facility] 01-16-2021 zoster vaccine recombinant 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 [facility] 01-06-2021 influenza virus vacc ine, unspecified formulation [employer]ITO BUENRO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 [facility] 01-06-2021 influenza, injectabl e, quadrivalent, contains preservative Oziel Culp MD Work Phone: [facility] 11-30-2020 influenza, injectabl e, quadrivalent, preservative free Dr. Radha Khan Work Phone: [facility] 11-30-2020 influenza, seasonal, injectable Dr. Radha Khan Work Phone: [facility] 07-08-2020 Covid (Moderna) Dr. Radha fuller Work Phone: [facility] 06-10-2020 Covid (Moderna) Dr. Radha fuller Work Phone: [facility] 01-27-2020 influenza virus vacc ine, unspecified formulation 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 [facility] 01-27-2020 influenza, injectabl e, quadrivalent, contains preservative Oziel Culp MD Work Phone: [facility] 01-16-2019 influenza virus vacc ine, unspecified formulation 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 [facility] 01-16-2019 influenza, injectabl e, quadrivalent, contains preservative Oziel Culp MD Work Phone: [facility] 01-21-2018 influenza virus vacc ine, unspecified formulation 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 [facility] 01-21-2018 influenza, seasonal, injectable Oziel Culp MD Work Phone: [facility] 12-24-2017 influenza, injectabl e, quadrivalent, preservative free Dr. Radha Khan Work Phone: [facility] 12-24-2017 influenza, seasonal, injectable Dr. Radha Khan Work Phone: [facility] 12-09-2015 influenza virus vacc ine, unspecified formulation 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 [facility] 12-09-2015 influenza, seasonal, injectable Oziel Culp MD Work Phone: [facility] 12-24-2014 influenza virus vacc ine, unspecified formulation 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 [facility] 12-24-2014 influenza, seasonal, injectable Oziel Culp MD Work Phone: [facility] 12-06-2014 pneumococcal polysaccharide vaccine, 23 valent 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 [facility] 07-19-2014 tetanus toxoid, redu federica diphtheria toxoid, and acellular pertussis vaccine, adsorbed [employer]RO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 [facility] 02-10-2014 influenza virus vacc ine, unspecified formulation 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 [facility] 02-10-2014 influenza, seasonal, injectable Oziel Culp MD Work Phone: [facility] 02-10-2009 novel influenza-H1N1 -09, preservative-free, injectable Oziel Culp MD Work Phone: [facility] [employer] Payers Date Payer Category Payer Managed Care (Private) [employer] [id number] 09-19-2023 Self-pay [id number] 07-31-2023 Commercial Managed C are - HMO [id number] 07-31-2023 Unknown [employer]ICAL [employer] M MO SUPERMED [id number] 07/31/2023-Present [address] [place] [address] Commercial [id number] 02-27-2023 Unknown [id number] 10-30-2014 Unknown [id number] 07-30-2009 Unknown THP [facility] THP HMO [id number] 07/30/2009-Present HMO [id number] 07-30-1996 Unknown [place]P [place] [employer] [place] H[place] [id number] 07/30/1996-03/31/2015 HMO [id number]. [id number] 1963 Unknown [id number] 2.840.1.717449.3.579.2. 627 1963 Unknown [id number] 2.16840.1.002135.3.579.2. 124 1963 Unknown [id number] 2.840.1.237640.3.579.2. 1246 1963 Unknown [id number] 2.840.1.135949.3.579.2. 1242 1963 Unknown [id number] 2.0.1.670061.3.579.2. 1242 1963 Unknown [id number] 2.0.1.595489.3.579.2. 1244 1963 Unknown [id number] 2.0.1.124641.3.579.2. 124 1963 Unknown [id number] 2.0.1.203268.3.579.2. 1244 1963 Unknown [id number] 2.0.1.287475.3.579.2. 1244 1963 Unknown [id number] 2.0.1.590114.3.579.2. 1244 1963 Unknown [id number] 2.0.1.125855.3.579.2. 1244 1963 Unknown [id number] 2.840.1.513422.3.579.2. 1244 1963 Unknown [id number] 2.840.1.010579.3.579.2. 124 Unknown [id number] Unknown [id number] 2.840.1.455472.3.579.2. 462 Unknown [id number] 2.16.840.1.866952.3.579.2. 462 Unknown [id number] 2.16.840.1.687272.3.579.2. 462 Unknown [id number] 2.16.840.1.587358.3.579.2. 462 Unknown [id number] 2.16.840.1.092514.3.579.2. 462 Unknown [id number] 2.16.840.1.308722.3.579.2. 462 Unknown [id number] 2.16.840.1.142207.3.579.2. 462 Unknown [id number] 2.16.840.1.202413.3.579.2. 462 Unknown [id number] 2.16.840.1.274432.3.579.2. 462 Unknown [id number] 2.16840.1.497071.3.579.2. 462 Unknown [id number] 2.16840.1.749878.3.579.2. 462 Unknown [id number] 2.16840.1.615323.3.579.2. 462 Unknown [id number] 2.16.840.1.927456.3.579.2. 462 Unknown [id number] 2.16.840.1.978920.3.579.2. 462 Unknown [id number] 2.16.840.1.179752.3.579.2. 462 Unknown [id number] 2.16.840.1.813406.3.579.2. 462 Unknown [id number] 2.16.840.1.231049.3.579.2. 462 Unknown [id number] 2.16.840.1.605245.3.579.2. 462 Unknown [id number] 2.16.840.1.637992.3.579.2. 462 Unknown [id number] 2.16.840.1.556120.3.579.2. 462 Unknown [id number] 2.16.840.1.271405.3.579.2. 462 Unknown [id number] 2.16.840.1.521373.3.579.2. 462 Unknown [id number] 2.16.840.1.654445.3.579.2. 462 Unknown [id number] 2.16.840.1.283496.3.579.2. 462 Unknown [id number] 2.16.840.1.800182.3.579.2. 462 Unknown [id number] 2.16.840.1.296955.3.579.2. 462 Unknown [id number] 2.16.840.1.961884.3.579.2. 462 Unknown [id number] 2.16840.1.165999.3.579.2. 462 Unknown [id number] 2.16840.1.526498.3.579.2. 462 Unknown [id number] 2.16840.1.984037.3.579.2. 462 Unknown [id number] 2.16.840.1.272630.3.579.2. 462 Unknown [id number] 2.16.840.1.270281.3.579.2. 462 Unknown [id number] 2.16840.1.062343.3.579.2. 462 Unknown [id number] 2.16.840.1.247347.3.579.2. 462 Unknown [id number] 2.16.840.1.376990.3.579.2. 462 Unknown [id number] 2.16.840.1.910047.3.579.2. 462 Unknown [id number] 2.16.840.1.309503.3.579.2. 462 Unknown [id number] 2.16840.1.154006.3.579.2. 462 Unknown [id number] 2.16.840.1.291672.3.579.2. 462 Unknown [id number] 2.16.840.1.373091.3.579.2. 462 Unknown [id number] 2.16.840.1.737542.3.579.2. 462 Unknown [id number] 2.16.840.1.130269.3.579.2. 462 Unknown [id number] 2.16.840.1.069434.3.579.2. 462 Unknown [id number] 2.16840.1.332392.3.579.2. 462 Unknown [id number] 2.16840.1.053604.3.579.2. 462 Unknown [id number] 2.840.1.566921.3.579.2. 462 Unknown [id number] 2.840.1.760109.3.579.2. 462 Unknown [id number] 2.840.1.185030.3.579.2. 462 Unknown [id number] 2.840.1.006270.3.579.2. 462 Unknown [id number] 2.840.1.664094.3.579.2. 462 Unknown [id number] 2.840.1.086256.3.579.2. 462 Unknown [id number] 2.840.1.927632.3.579.2. 462 Unknown [id number] 2.16840.1.854669.3.579.2. 462 Unknown [id number] 2.16840.1.984417.3.579.2. 462 Unknown [id number] 2.16840.1.682654.3.579.2. 462 Unknown [id number] 2.16840.1.576982.3.579.2. 462 Unknown [id number] 2.16.840.1.413999.3.579.2. 462 Unknown [id number] 2.16.840.1.483097.3.579.2. 462 Unknown [id number] 2.16.840.1.588076.3.579.2. 462 Unknown [id number] 2.16.840.1.365533.3.579.2. 462 Unknown [id number] 2.16840.1.619941.3.579.2. 462 Unknown [id number] 2.16840.1.490695.3.579.2. 462 Unknown [id number] 2.840.1.887554.3.579.2. 462 Unknown [id number] 2.16840.1.609721.3.579.2. 462 Unknown [id number] 2.840.1.072234.3.579.2. 462 Unknown [id number] 2.840.1.512160.3.579.2. 462 Unknown [id number] 2.840.1.665232.3.579.2. 462 Unknown [id number] 2.840.1.421894.3.579.2. 462 Unknown [id number] 2.16840.1.319365.3.579.2. 462 Unknown [id number] 2.840.1.251745.3.579.2. 462 Unknown [id number] 2.16840.1.069894.3.579.2. 462 Unknown [id number] 2.16840.1.928092.3.579.2. 462 Unknown [id number] 2.16840.1.045467.3.579.2. 462 Unknown [id number] 2.16840.1.789278.3.579.2. 462 Unknown [id number] 2.16840.1.707675.3.579.2. 462 Unknown [id number] 2.16.840.1.076606.3.579.2. 462 Unknown [id number] 2.840.1.793043.3.579.2. 462 Unknown [id number] 2.16.840.1.645863.3.579.2. 462 Unknown [id number] 2.16840.1.556279.3.579.2. 462 Unknown [id number] 2.840.1.876418.3.579.2. 462 Unknown [id number] 2.840.1.413121.3.579.2. 462 Unknown [id number] 2.840.1.830863.3.579.2. 462 Unknown [id number] 2.840.1.619464.3.579.2. 462 Unknown [id number] 2.840.1.121541.3.579.2. 462 Unknown [id number] 2.840.1.713210.3.579.2. 462 Unknown [id number] 2.840.1.650366.3.579.2. 462 Unknown [id number] 2.840.1.187676.3.579.2. 462 Unknown [id number] 2.840.1.321710.3.579.2. 462 Unknown [id number] 2.840.1.948085.3.579.2. 462 Unknown [id number] 2.840.1.263156.3.579.2. 462 Unknown [id number] 2.840.1.340906.3.579.2. 462 Unknown [id number] 2.840.1.454489.3.579.2. 462 Unknown [id number] 2.16840.1.378586.3.579.2. 462 Unknown [id number] 2.840.1.843252.3.579.2. 462 Unknown [id number] 2.16.840.1.833748.3.579.2. 462 Social History Date Type Detail Facility Start: 06-14-2007 End: 09-26-2024 Tobacco smoking status NHIS Never smoker [facility] Start: 06-14-2007 Alcohol intake Not Asked [facility] Start: 1965 Sex Assigned At Not on file [facility] Start: 07-16-2021 End: 07-17-2023 Tobacco smoking status MDIS Unknown if ever smoked [facility] Start: 03-28-2020 None [facility] Start: 03-28-2020 Spouse/ Significant Other [facility] Start: 04-20-2018 Non-smoker [facility] Start: 1965 Sex Assigned At Male [facility] Start: 10-03-2023 Gender identity Identifies as male gender (finding) [facility] Start: 01-06-2024 End: 09-24-2024 Sexual orientation Not on file [facility] Start: 01-06-2024 Tobacco use and exposure Smokeless tobacco non-user [facility] Start: 01-06-2024 End: 05-06-2024 Alcoholic beverage intake Ex-drinker (finding) [facility] Start: 01-06-2024 End: 09-24-2024 History of Social function [facility] Start: 10-03-2023 Sex Male (finding) [facility] Start: 06-26-2024 End: 09-24-2024 Alcoholic beverage intake Lifetime non-drinker (finding) [facility] Work Phone: Start: 05-22-2024 Sexual orientation Heterosexual (finding) [facility] [facility] Work Phone: Start: 06-16-2024 End: 08-28-2024 Exposure to SARS-CoV-2 (event) Not sure [facility] How often to you hav e a drink containing alcohol? Never [facility] Work Phone: How many standard drinks containing alcohol do you have on a typical day? 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 - [id number] Start: 05-06-2024 Pen Needle, Diab etic [...] Functional Status Date Assessment Result Facility 09-24-2024 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 - recent [C-SSRS] [facility] Work Phone: 08-07-2024 Total score [AUDIT-C] 0 08/08/19 25 2:09 PM EDT Rivka Greardo MA [facility] Work Phone: 04-25-2024 Functional status Ambulates [facility] Work Phone: 04-15-2024 Functional status Ambulates;[facility] Work Phone: 10-03-2023 Functional Status Room check performed [facility] 10-03-2023 Functional Status [facility] 10-03-2023 Functional Status [facility] 10-03-2023 Functional Status bilateral knee high removed/off [facility] 10-02-2023 Functional Status [facility] 10-02-2023 Functional Status Demonstrates C orrect Call Light Use Yes [facility] 10-02-2023 Functional Status [facility] 10-02-2023 Functional Status Single level home [facility] 10-02-2023 Functional Status None [facility] 08-03-2022 Functional status Ambulates [facility] Work Phone: 06-20-2021 Functional status Up ad harini [facility] Work Phone: [facility] Work Phone: Mental Status Date Assessment Result Facility 09-26-2024 Cognitive function Voice/Name [facility] Work Phone: 04-25-2024 [facility] function [facility] Work Phone: 04-15-2024 Cognitive function [facility] Work Phone: 10-03-2023 Mental Status Oriented x 4 [facility] 10-02-2023 Mental Status [facility] 10-02-2023 Mental Status [facility] 02-18-2023 Cognitive function Voice/Name [facility] Work Phone: 08-03-2022 Cognitive function Awake;Alert;A ppropriate;Fo llows Commands;Responds to vocal stimuli [facility] Work Phone: 08-03-2022 Cognitive function Voice/Name [facility] Work Phone: 06-20-2021 Cognitive function Appropriate;Cooperativ e [facility] Work Phone: Clinical Notes 08-02-2022 to 09-26-2024 Note Date & Type Note Facility 09-26-2024 Discharge summary [facility] 09-26-2024 Radiology Diagnostic study note [facility] Imaging Services [address], [place] [address] STROKE Brain/Head without Cont MR#: [id number] Acct: [id number] Name: KRUNAL LEOS Rep #: [id number] : 1965 M 59 From: Astrid Newberry MD PCP: Dr. Brandt Winter MD Status: REG ER Study:STROKE Brain/Head without Cont Date of Exam: 09/26/24 Exam# [id number] Ordering Dr: Domonique Avitia MD EXAM: STROKE [...] Avitia at 4:36 pm on09/26/24. Reading Location[facility] CC: Dr. Brandt Winter MD; Dr. Angel Avitia MD ~ Treasury Associate: Signed [facility] 09-26-2024 Discharge summary Note Date/Time September 26, 2024 5:05pm [facility] Medical Records Department [address] [place] [address] Emergency Department Summary 09/26/24 MR#: [id number] Acct: [id number] Name: KRUNAL LEOS Rep #:[id number] 13 : [...] and lung disease. This was performed at [facility]. Patient did take his medicine last evening [...] symptoms: Yes Recent Illness/Hospitalization: Yes (Lung biopsy [facility]) [facility] Medical History Hyperlipidemia Ischemic cerebrovascular accident (CVA) CHF (congestive heart failure) Chronic respiratory failure with hypoxia KIANNA (obstructive sleep apnea) Presence of insulin pump CKD (chronic kidney disease) Hypothyroidism Essential (primary) hypertension Diabetes Acute hypoxemic respiratory failure Chronic diastolic CHF (congestive heart failure) Obesity Exertional shortness of breath Iron deficiency anemia due to chronic blood loss 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 Simpson Coma Scale: document GCS findings Spontaneous Obeys [...] 85.3 H Lymph % (Auto) 4.2 L [place] % (Auto) 8.7 Eos % (Auto) 0.6 [...] Avitia at 4:36 pm on09/26/24. Reading Location: [id number] Radiologist informing there is no evidence of acute stroke or hemorrhage. CT was reviewed by me. There is nothing obvious that I saw or any change compared to prior. EKG Initial EKG: Attestation: I personally reviewed and interpreted this EKG as follows: Interpretation: Sinus Rhythm (Rate is 82. LA interval 238 ms. QRS durations 106 ms. QT durations are 96 ms. [place] is normal. There is evidence of LVH. 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 Level of [...] problems, contact your Primary Care Provider. Call [facility] ([phone]) or report to the closest Emergency Room. Call 911 if necessary. 09/26/24 1705 <Electronically signed by Angel Avitia MD> Cosigner Signature (if applicable): CC: Dr. Brandt Winter MD ~ Signed [facility] Work Phone: 1(175) 495-639006-26-2025 Hospital Discharge instructions* Discharge Instructions* Dick Nguyen MD - 09/24/2024 9:17 AM EDT [facility] Interventional Pulmonology The anesthetics, sedatives or [...] on weekends: / and ask for the Caretaker on-call(Pager Number: [phone]) documented in this [facility] Work Phone: 1(927) 904-299306-26-2025 Attending History and physical note* Maeve Pringle [...] Pulmonary, Critical Care, and Sleep Medicine Consultation [address] Pulmonary Clinic/[facility] Patient was referred by his [...] surgery total pulmonary decortication in 2015 at [facility]. He was hospitalized in [place] from 03/02-03/04/2024 for acute hypoxic respiratory failure. [...] Review Audit Reviewed by Heavenly Sparks MA (Quality Coordinator) on 08/28/24 at 1158 Medication Order Taking? Sig Documenting Provider Last Dose Status albuterol 90 mcg/actuation inhaler [id number] INHALE 2 PUFFS BY MOUTH EVERY 4 HOURS NEEDED FOR SHORTNESS OF BREATH OR WHEEZING Historical ProviderMD Active amLODIPine (Norvasc) 5 mg tablet [id number] Take 1 tablet (5 mg) by mouth once daily. Historical ProviderMD Active aspirin 325 mg tablet [id number] Take 1 tablet (325 mg) by mouth once daily. Historical ProviderLORNActive atorvastatin (Lipitor) 80 mg tablet [id number] Take 1 tablet (80 mg) by mouth once daily at bedtime.Historical ProviderMD Active betamethasone, augmented, (Diprolene) 0.05 % lotion [id number] APPLY TO RASH ON THE TRUNK OR SCALP 1-2 TIMES DAILY NEEDED Historical ProviderMD Active bismuth subsalicylate (Pepto Bismol) 262 mg chewable tablet [id number] CHEW AND SWALLOW 2 TABLETS BYMOUTH 3 TIMES A DAY for 2 weeks. max 16 tablets per 24 hours Patient not taking: Reported on 08/07/2024 Historical ProviderMD Active Brilinta 90 mg tablet [id number] 1 tablet (90 mg). Historical ProviderMD Active busPIRone (Buspar) 10 mg tablet [id number] Take 1 tablet (10 mg) by mouth 3 times a day. Historical ProviderMD Active clopidogrel (Plavix) 75 mg tablet [id number] Take 1 tablet (75 mg) by mouth early in the morning.. Historical ProviderMD Active dapagliflozin propanediol (Farxiga) 5 mg [id number] Take 1 tablet (5 mg) by mouth once daily. Historical ProviderMD Active Dexcom G6 Sensor device [id number] USE DIRECTED FOR CONTINUOUS BLOOD GLUCOSE MONITORING, CHANGE SENSOR EVERY 10 DAYS Historical ProviderMD Active DULoxetine (Cymbalta) [address] capsule [id number] Take 1 capsule (60 mg) by mouth once daily. Historical ProviderMD Active Eliquis 5 mg tablet [id number] Take 1 tablet (5 mg) by mouth 2 times a day. Historical ProviderMD Active ergocalciferol (Vitamin D-2) 1250 mcg (50,000 units) capsule [id number] Take 1 capsule (1,250 mcg) by mouth. Historical ProviderMD Active fenofibrate (Tricor) 54 mg tablet [id number] Take 1 tablet (54 mg) by mouth once daily. Historical ProviderMD Active furosemide (Lasix) 40 mg tablet [id number] Take 1 tablet (40 mg) by mouth. Gloria ProviderMD Active glimepiride (Amaryl) 4 mg tablet [id number] Take 1 tablet (4 mg) by mouth early in the morning.. Patient not taking: Reported on 08/07/2024 Gloria Rahman MD Active glipiZIDE (Glucotrol) 5 mg tablet [id number] Take 1 tablet (5 mg) by mouth. Patient not taking: Reported on 08/07/2024 Gloria ProviderMD Active HumuLIN R U-500, Conc, Insulin 500 unit/mL CONCENTRATED injection [id number] INJECT 75 UNITS DAILY VIA CONTINUOUS SUBCUTANEOUS INFUSION. DISCARD VIAL AFTER 40 DAYS Patient not taking: Reported on 08/07/2024 Gloria ProviderMD Active Jardiance 25 mg [id number] Take 1 tablet (25 mg) by mouth once daily. Historical ProviderMD Active levothyroxine (Synthroid, Levoxyl) 112 mcg tablet [id number] Take 1 tablet (112 mcg) by mouth once daily. Historical ProviderMD Active lisinopril 40 mg tablet [id number] Take 1 tablet (40 mg) by mouth once daily. Historical ProviderMD Active metFORMIN (Glucophage) 500 mg tablet [id number] Take 1 tablet (500 mg) by mouth 2 times daily (morning and late afternoon). Historical ProviderMD Active metoprolol succinate XL (Toprol-XL) 100 mg 24 hr tablet [id number] TAKE 1 TABLET BY MOUTH DAILY for heart Historical ProviderMD Active Mucinex DM 60-1,200 mg tablet extended release 12 hr [id number] Take 1 tablet by mouth every 12 hours. Historical ProviderMD Active oxyCODONE-acetaminophen (Percocet) 5-325 mg tablet [id number] Take 1 tablet by mouth 2 times a day as needed. Patient not taking: Reported on 08/07/2024 Gloria Rahman MD Active pantoprazole (ProtoNix) 40 mg EC tablet [id number] Take 1 tablet (40 mg) by mouth. Historical ProviderMD Active potassium citrate CR (Urocit-K-10) 10 mEq ER tablet [id number] Take 1 tablet (10 mEq) by mouth twicea day. Historical ProviderMD Active predniSONE (Deltasone) 20 mg tablet [id number] Take 0.5 tablets (10 mg) by mouth early in the morning.. Historical ProviderMD Active predniSONE (Deltasone) 20 mg tablet [id number] Take 2 tablets (40 mg) by mouth once daily. Patient not taking: Reported on 08/07/2024 Rosalino Padron MD Active predniSONE (Deltasone) 5 mg tablet [id number] Take 4 tablets (20 mg) by mouth once daily for 30 days, THEN 3 tablets (15 mg) once daily for 30 days, THEN 2 tablets (10 mg) once daily for 30 days, THEN1 tablet (5 mg) once daily for 14 days. Rosalino Padron MD Active spironolactone (Aldactone) 50 mg tablet [id number] Take 1 tablet (50 mg) by mouth once daily. Patient not taking: Reported on 08/07/2024 Historical ProviderMD Active tamsulosin (Flomax) 0.4 mg 24 hr capsule [id number] Take 1 capsule (0.4 mg) by mouth once daily. Historical ProviderMD Active traMADol (Ultram) 50 mg tablet [id number] Take 1 tablet (50 mg) by mouth. [...] above completed Rosalino Padron MD 08/28/2024 T [facility] Work Phone: [phone] History and physical note* Maeve Pringle MD [...] Pulmonary, Critical Care, and Sleep Medicine Consultation [address] [facility]monary Clinic/[facility] Patient was referred by his [...] surgery total pulmonary decortication in 2015 at [facility]. He was hospitalized in [place] from 03/02-03/04/2024 for acute hypoxic respiratory failure. [...] Review Audit Reviewed by Heavenly Sparks MA (Quality Coordinator) on 08/28/24 at 1158 Medication Order Taking? Sig Documenting Provider Last Dose Status albuterol 90 mcg/actuation inhaler [id number] INHALE 2 PUFFS BY MOUTH EVERY 4 HOURS NEEDED FOR SHORTNESS OF BREATH OR WHEEZING Historical ProviderMD Active amLODIPine (Norvasc) 5 mg tablet [id number] Take 1 tablet (5 mg) by mouth once daily. Historical ProviderMD Active aspirin 325 mg tablet [id number] Take 1 tablet (325 mg) by mouth once daily. Historical ProviderLORNActive atorvastatin (Lipitor) 80 mg tablet [id number] Take 1 tablet (80 mg) by mouth once daily at bedtime.Historical ProviderMD Active betamethasone, augmented, (Diprolene) 0.05 % lotion [id number] APPLY TO RASH ON THE TRUNK OR SCALP 1-2 TIMES DAILY NEEDED Historical ProviderMD Active bismuth subsalicylate (Pepto Bismol) 262 mg chewable tablet [id number] CHEW AND SWALLOW 2 TABLETS BYMOUTH 3 TIMES A DAY for 2 weeks. max 16 tablets per 24 hours Patient not taking: Reported on 08/07/2024 Historical ProviderMD Active Brilinta 90 mg tablet [id number] 1 tablet (90 mg). Historical ProviderMD Active busPIRone (Buspar) 10 mg tablet [id number] Take 1 tablet (10 mg) by mouth 3 times a day. Historical ProviderMD Active clopidogrel (Plavix) 75 mg tablet [id number] Take 1 tablet (75 mg) by mouth early in the morning.. Historical ProviderMD Active dapagliflozin propanediol (Farxiga) 5 mg [id number] Take 1 tablet (5 mg) by mouth once daily. Historical ProviderMD Active Dexcom G6 Sensor device [id number] USE DIRECTED FOR CONTINUOUS BLOOD GLUCOSE MONITORING, CHANGE SENSOR EVERY 10 DAYS Historical ProviderMD Active DULoxetine (Cymbalta) [address] capsule [id number] Take 1 capsule (60 mg) by mouth once daily. Historical ProviderMD Active Eliquis 5 mg tablet [id number] Take 1 tablet (5 mg) by mouth 2 times a day. Gloria Rahman MD Active ergocalciferol (Vitamin D-2) 1250 mcg (50,000 units) capsule [id number] Take 1 capsule (1,250 mcg) by mouth. Gloria Rahman MD Active fenofibrate (Tricor) 54 mg tablet [id number] Take 1 tablet (54 mg) by mouth once daily. Gloria Rahman MD Active furosemide (Lasix) 40 mg tablet [id number] Take 1 tablet (40 mg) by mouth. Gloria Rahman MD Active glimepiride (Amaryl) 4 mg tablet [id number] Take 1 tablet (4 mg) by mouth early in the morning.. Patient not taking: Reported on 08/07/2024 Gloria Rahman MD Active glipiZIDE (Glucotrol) 5 mg tablet [id number] Take 1 tablet (5 mg) by mouth. Patient not taking: Reported on 08/07/2024 Gloria Rahman MD Active HumuLIN R U-500, Conc, Insulin 500 unit/mL CONCENTRATED injection [id number] INJECT 75 UNITS DAILY VIA CONTINUOUS SUBCUTANEOUS INFUSION. DISCARD VIAL AFTER 40 DAYS Patient not taking: Reported on 08/07/2024 Gloria Rahman MD Active Jardiance 25 mg [id number] Take 1 tablet (25 mg) by mouth once daily. Historical ProviderMD Active levothyroxine (Synthroid, Levoxyl) 112 mcg tablet [id number] Take 1 tablet (112 mcg) by mouth once daily. Gloria Rahman MD Active lisinopril 40 mg tablet [id number] Take 1 tablet (40 mg) by mouth once daily. Historical ProviderMD Active metFORMIN (Glucophage) 500 mg tablet [id number] Take 1 tablet (500 mg) by mouth 2 times daily (morning and late afternoon). Gloria ProviderMD Active metoprolol succinate XL (Toprol-XL) 100 mg 24 hr tablet [id number] TAKE 1 TABLET BY MOUTH DAILY for heart Historical ProviderMD Active Mucinex DM 60-1,200 mg tablet extended release 12 hr [id number] Take 1 tablet by mouth every 12 hours. Gloria Rahmna MD Active oxyCODONE-acetaminophen (Percocet) 5-325 mg tablet [id number] Take 1 tablet by mouth 2 times a day as needed. Patient not taking: Reported on 08/07/2024 Gloria Rahman MD Active pantoprazole (ProtoNix) 40 mg EC tablet [id number] Take 1 tablet (40 mg) by mouth. Historical ProviderMD Active potassium citrate CR (Urocit-K-10) 10 mEq ER tablet [id number] Take 1 tablet (10 mEq) by mouth twicea day. Historical ProviderMD Active predniSONE (Deltasone) 20 mg tablet [id number] Take 0.5 tablets (10 mg) by mouth early in the morning.. Historical ProviderMD Active predniSONE (Deltasone) 20 mg tablet [id number] Take 2 tablets (40 mg) by mouth once daily. Patient not taking: Reported on 08/07/2024 Rosalino Padron MD Active predniSONE (Deltasone) 5 mg tablet [id number] Take 4 tablets (20 mg) by mouth once daily for 30 days, THEN 3 tablets (15 mg) once daily for 30 days, THEN 2 tablets (10 mg) once daily for 30 days, THEN1 tablet (5 mg) once daily for 14 days. Rosalino Padron MD Active spironolactone (Aldactone) 50 mg tablet [id number] Take 1 tablet (50 mg) by mouth once daily. Patient not taking: Reported on 08/07/2024 Historical ProviderMD Active tamsulosin (Flomax) 0.4 mg 24 hr capsule [id number] Take 1 capsule (0.4 mg) by mouth once daily. Historical ProviderMD Active traMADol (Ultram) 50 mg tablet [id number] Take 1 tablet (50 mg) by mouth. [...] Rosalino Padron MD 08/28/2024 documented in this [facility] Work Phone: 1([phone]) 537-903605-15-2025 Radiology Diagnostic study [facility]05-09-2025 History of Present illness Narrative* Rosalino Padron MD - 08/07/2024 2:30 PM EDT Images from the original note were not included. Department of Medicine Division of Pulmonary, Critical Care, and Sleep Medicine Consultation [address] Pulmonary Clinic/[facility] Patient was referred by his [...] surgery total pulmonary decortication in 2015 at [facility]. He was hospitalized in [place] from 03/02-03/04/2024 for acute hypoxic respiratory failure. [...] Review Audit Reviewed by Rivka Gerardo MA (Quality Coordinator) on 08/07/24 at 1413 Medication Order Taking? Sig Documenting Provider Last Dose Status albuterol 90 mcg/actuation inhaler [id number] Yes INHALE 2 PUFFS BY MOUTH EVERY 4 HOURS NEEDED FOR SHORTNESS OF BREATH OR WHEEZING Historical ProviderMD Active amLODIPine (Norvasc) 5 mg tablet [id number] Yes Take 1 tablet (5 mg) by mouth once daily. HistoricalProviderMD Active aspirin 325 mg tablet [id number] Yes Take 1 tablet (325 mg) by mouth once daily. Historical ProviderMD Active atorvastatin (Lipitor) 80 mg tablet [id number] Yes Take 1 tablet (80 mg) by mouth once daily at bedtime. Historical ProviderMD Active betamethasone, augmented, (Diprolene) 0.05 % lotion [id number] APPLY TO RASH ON THE TRUNK OR SCALP 1-2 TIMES DAILY NEEDED Historical ProviderMD Active bismuth subsalicylate (Pepto Bismol) 262 mg chewable tablet [id number] CHEW AND SWALLOW 2 TABLETS BYMOUTH 3 TIMES A DAY for 2 weeks. max 16 tablets per 24 hours Patient not taking: Reported on 08/07/2024 Historical ProviderMD Active Brilinta 90 mg tablet [id number] Yes 1 tablet (90 mg). Historical ProviderMD Active busPIRone (Buspar) 10 mg tablet [id number] Yes Take 1 tablet (10 mg) by mouth 3 times a day. Historical ProviderMD Active clopidogrel (Plavix) 75 mg tablet [id number] Take 1 tablet (75 mg) by mouth early in the morning.. Gloria ProviderMD Active dapagliflozin propanediol (Farxiga) 5 mg [id number] Take 1 tablet (5 mg) by mouth once daily. Gloria ProviderMD Active Dexcom G6 Sensor device [id number] Yes USE DIRECTED FOR CONTINUOUS BLOOD GLUCOSE MONITORING, CHANGE SENSOR EVERY 10 DAYS Historical ProviderMD Active DULoxetine (Cymbalta) [address] capsule [id number] Yes Take 1 capsule (60 mg) by mouth once daily. Historical ProviderMD Active Eliquis 5 mg tablet [id number] Yes Take 1 tablet (5 mg) by mouth 2 times a day. Historical ProviderMD Active ergocalciferol (Vitamin D-2) 1250 mcg (50,000 units) capsule [id number] Take 1 capsule (1,250 mcg) by mouth. Historical ProviderMD Active fenofibrate (Tricor) 54 mg tablet [id number] Yes Take 1 tablet (54 mg) by mouth once daily. Historical ProviderMD Active furosemide (Lasix) 40 mg tablet [id number] Yes Take 1 tablet (40 mg) by mouth. Historical ProviderMD Active glimepiride (Amaryl) 4 mg tablet [id number] Take 1 tablet (4 mg) by mouth early in the morning.. Patient not taking: Reported on 08/07/2024 Gloria Rahman MD Active glipiZIDE (Glucotrol) 5 mg tablet [id number] Take 1 tablet (5 mg) by mouth. Patient not taking: Reported on 08/07/2024 Historical MD Lacey Active HumuLIN R U-500, Conc, Insulin 500 unit/mL CONCENTRATED injection [id number] INJECT 75 UNITS DAILY VIA CONTINUOUS SUBCUTANEOUS INFUSION. DISCARD VIAL AFTER 40 DAYS Patient not taking: Reported on 08/07/2024 Gloria Rahman MD Active Jardiance 25 mg [id number] Yes Take 1 tablet (25 mg) by mouth once daily. Historical ProviderMD Active levothyroxine (Synthroid, Levoxyl) 112 mcg tablet [id number] Yes Take 1 tablet (112 mcg) by mouth once daily. Historical ProviderMD Active lisinopril 40 mg tablet [id number] Yes Take 1 tablet (40 mg) by mouth once daily. Gloria Rahman MD Active metFORMIN (Glucophage) 500 mg tablet [id number] Take 1 tablet (500 mg) by mouth 2 times daily (morning and late afternoon). Gloria Rahman MD Active metoprolol succinate XL (Toprol-XL) 100 mg 24 hr tablet [id number] Yes TAKE 1 TABLET BY MOUTH DAILY for heart Historical MD Lacey Active Mucinex DM 60-1,200 mg tablet extended release 12 hr [id number] Take 1 tablet by mouth every 12 hours. Gloria Rahman MD Active oxyCODONE-acetaminophen (Percocet) 5-325 mg tablet [id number] Take 1 tablet by mouth 2 times a day as needed. Patient not taking: Reported on 08/07/2024 Gloria Rahman MD Active pantoprazole (ProtoNix) 40 mg EC tablet [id number] Yes Take 1 tablet (40 mg) by mouth. Gloria Rahman MD Active potassium citrate CR (Urocit-K-10) 10 mEq ER tablet [id number] Take 1 tablet (10 mEq) by mouth twicea day. Historical MD Lacey Active predniSONE (Deltasone) 20 mg tablet [id number] Take 0.5 tablets (10 mg) by mouth early in the morning.. Gloria Rahman MD Active predniSONE (Deltasone) 20 mg tablet [id number] Take 2 tablets (40 mg) by mouth once daily. Patient not taking: Reported on 08/07/2024 Rosalino Padron MD Active spironolactone (Aldactone) 50 mg tablet [id number] Take 1 tablet (50 mg) by mouth once daily. Patient not taking: Reported on 08/07/2024 Gloria Rahman MD Active tamsulosin (Flomax) 0.4 mg 24 hr capsule [id number] Yes Take 1 capsule (0.4 mg) by mouth once daily.Gloria Rahman MD Active traMADol (Ultram) 50 mg tablet [id number] Take 1 tablet (50 mg) by mouth. [...] Rosalino Padron MD 08/07/2024 [facility]: 1(320) 318-309305-09-2025 Instructions* Patient Instructions* Rosalino Padron MD - [...] clinic time slot For scheduling purposes: Call [phone] to schedule a breathing or a walking test Call [phone] to schedule EKG's, Echocardiograms and Cardiopulmonary Stress Tests. Call [phone] to schedule Radiology tests such as Nuclear Medicine Stress Tests, CT Scans, and MRI's. Should you have any questions Please Call our pulmonary nurse Linda Marie at [phone] or my fitter's assistant Puneet Leone at [phone] [facility] Work Phone: 1(474) 685-144103-28-2025 History of Present illness Narrative* Rosalino Padron MD - 06/26/2024 11:30 AM EDT Images from the original note were not included. Department of Medicine Division of Pulmonary, Critical Care, and Sleep Medicine Consultation [address] Pulmonary Clinic/[facility] Patient was referred by his [...] surgery total pulmonary decortication in 2015 at [facility]. He was hospitalized in [place] from 03/02-03/04/2024 for acute hypoxic respiratory failure. [...] Review Audit Reviewed by Suly Johnston MA (Quality Coordinator) on 06/26/24 at 1224 Medication Order Taking? Sig Documenting Provider Last Dose Status albuterol 90 mcg/actuation inhaler [id number] Yes INHALE 2 PUFFS BY MOUTH EVERY 4 HOURS NEEDED FOR SHORTNESS OF BREATH OR WHEEZING Historical Provider, Active amLODIPine (Norvasc) 5 mg tablet [id number] Take 1 tablet (5 mg) by mouth once daily. Historical Provider, Active aspirin 325 mg tablet [id number] Take 1 tablet (325 mg) by mouth once daily. Historical Provider, LORNActive atorvastatin (Lipitor) 80 mg tablet [id number] Take 1 tablet (80 mg) by mouth once daily at bedtime.Historical ProviderMD Active betamethasone, augmented, (Diprolene) 0.05 % lotion [id number] Yes APPLY TO RASH ON THE TRUNK OR SCALP 1-2 TIMES DAILY NEEDED Historical ProviderMD Active bismuth subsalicylate (Pepto Bismol) 262 mg chewable tablet [id number] Yes CHEW AND SWALLOW 2 TABLETS BY MOUTH 3 TIMES A DAY for 2 weeks. max 16 tablets per 24 hours Historical ProviderMD Active Brilinta 90 mg tablet [id number] Yes 1 tablet (90 mg). Historical Provider, Active busPIRone (Buspar) 10 mg tablet [id number] Take 1 tablet (10 mg) by mouth 3 times a day. Historical ProviderMD Active clopidogrel (Plavix) 75 mg tablet [id number] Yes Take 1 tablet (75 mg) by mouth early in the morning.. Historical ProviderMD Active dapagliflozin propanediol (Farxiga) 5 mg [id number] Yes Take 1 tablet (5 mg) by mouth once daily. Historical ProviderMD Active Dexcom G6 Sensor device [id number] Yes USE DIRECTED FOR CONTINUOUS BLOOD GLUCOSE MONITORING, CHANGE SENSOR EVERY 10 DAYS Historical ProviderMD Active DULoxetine (Cymbalta) [address] capsule [id number] Take 1 capsule (60 mg) by mouth once daily. Historical ProviderMD Active Eliquis 5 mg tablet [id number] Take 1 tablet (5 mg) by mouth 2 times a day. Historical ProviderMD Active ergocalciferol (Vitamin D-2) 1250 mcg (50,000 units) capsule [id number] Yes Take 1 capsule (1,250 mcg) by mouth. Historical ProviderMD Active fenofibrate (Tricor) 54 mg tablet [id number] Take 1 tablet (54 mg) by mouth once daily. Historical ProviderMD Active furosemide (Lasix) 40 mg tablet [id number] Yes Take 1 tablet (40 mg) by mouth. Historical ProviderMD Active glimepiride (Amaryl) 4 mg tablet [id number] Yes Take 1 tablet (4 mg) by mouth early in the morning..Historical ProviderMD Active glipiZIDE (Glucotrol) 5 mg tablet [id number] Yes Take 1 tablet (5 mg) by mouth. Historical ProviderMD Active HumuLIN R U-500, Conc, Insulin 500 unit/mL CONCENTRATED injection [id number] Yes INJECT 75 UNITS DAILY VIA CONTINUOUS SUBCUTANEOUS INFUSION. DISCARD VIAL AFTER 40 DAYS Historical ProviderMD Active Jardiance 25 mg [id number] Take 1 tablet (25 mg) by mouth once daily. Historical ProviderMD Active levothyroxine (Synthroid, Levoxyl) 112 mcg tablet [id number] Take 1 tablet (112 mcg) by mouth once daily. Gloria ProviderMD Active lisinopril 40 mg tablet [id number] Take 1 tablet (40 mg) by mouth once daily. Historical ProviderMD Active metFORMIN (Glucophage) 500 mg tablet [id number] Take 1 tablet (500 mg) by mouth 2 times daily (morning and late afternoon). Historical ProviderMD Active metoprolol succinate XL (Toprol-XL) 100 mg 24 hr tablet [id number] TAKE 1 TABLET BY MOUTH DAILY for heart Historical ProviderMD Active Mucinex DM 60-1,200 mg tablet extended release 12 hr [id number] Yes Take 1 tablet by mouth every 12 hours. Historical ProviderMD Active oxyCODONE-acetaminophen (Percocet) 5-325 mg tablet [id number] Take 1 tablet by mouth 2 times a day as needed. Historical ProviderMD Active pantoprazole (ProtoNix) 40 mg EC tablet [id number] Yes Take 1 tablet (40 mg) by mouth. Historical ProviderMD Active potassium citrate CR (Urocit-K-10) 10 mEq ER tablet [id number] Yes Take 1 tablet (10 mEq) by mouth twice a day. Historical ProviderMD Active predniSONE (Deltasone) 20 mg tablet [id number] Yes Take 0.5 tablets (10 mg) by mouth early in the morning.. Historical ProviderMD Active spironolactone (Aldactone) 50 mg tablet [id number] Yes Take 1 tablet (50 mg) by mouth once daily. Historical ProviderMD Active tamsulosin (Flomax) 0.4 mg 24 hr capsule [id number] Take 1 capsule (0.4 mg) by mouth once daily. Gloria ProviderMD Active traMADol (Ultram) 50 mg tablet [id number] Yes Take 1 tablet (50 mg) by [...] ab panel ordered on 06/26/2024. -will discuss LA on follow up. -Discussed antifibrotic therapy. Not [...] Rosalino Padron MD 06/26/2024 documented [facility] Work Phone: 1(899) 582-958303-28-2025 Instructions* Patient Instructions* Rosalino Padron MD - [...] evaluated for black mold. You can contact [facility] in [place], phone number is [phone] for a home inspection We will see you back in clinic in 1-2 months/weeks For scheduling purposes: Call [phone] to schedule a breathing or a walking test Call [phone] to schedule EKG's, Echocardiograms and Cardiopulmonary Stress Tests. Call [phone] to schedule Radiology tests such as Nuclear Medicine Stress Tests, CT Scans, and MRI's. Should you have any questions Please Call our pulmonary nurse Linda Marie at [phone] or my fitter's assistant Puneet Leone at [phone] documented in this [facility]Un[facility] Work Phone: 1(337) 469-684903-06-2025 Evaluation note* Diagnosis Onset Date Resolution Status [...] apnea) chroni c September 26, 2024 5:17pm [facility] Work Phone: 1(521) 817-734402-20-2025 Evaluation note* Diagnosis Onset Date Resolution Status [...] 2024 11:16am Fatigue noneactive September 15 12:53pm [facility] Work Phone: 1(108) 382-197202-07-2025 Telephone encounter Note* Telephone Encounter - Oziel [...] 1 year. Sooner prn. MD Jose Antonio [employer] Work Phone: 1(564) 880-152802-07-2025 Miscellaneous Notes* Telephone Encounter - Oziel Culp [...] prsalma. MD Jose Antonio documented in this [facility]02-05-2025 Note* Perioperative Nursing Note - Mendel River RN - 05/06/2024 4:02 PM EST Phase 2 care completed. Iv removed and dc instructions provided. Will dc to home with family Right groin site benign and neuro unchanged NIH 0 [facility] Note* Perioperative Nursing Note - Mendel River RN - 05/06/2024 4:02 PM EST Phase 2 care completed. Iv removed and dc instructions provided. Will dc to home with family Right groin site benign and neuro unchanged NIH 0 [facility] HospitalLudnjh87-88-2030 Miscellaneous Notes* Perioperative Nursing Note - Mendel River RN - 05/06/2024 4:02 PM EST Phase 2 care completed. Iv removed and dc instructions provided. Will dc to home with family Right groin site benign and neuro unchanged NIH 0 documented in this [facility]02-05-2025 NotePatient: Krunal Leos Procedure Summary Date: 05/06/24 Room / Location: [facility] Special Procedures Anesthesia Start: 124 Anesthesia Stop: [...] all PACU criteria has been met.[facility]02-05-2025 NotePatient: Krunal Leos Procedure Summary Date: 05/06/24 Room / Location: [facility] Special Procedures Anesthesia Start: 1243 Anesthesia Stop: [...] Allowed opportunity for questions and acknowledgement of understanding.[facility]02-05-2025 Nurse Note* Se Hensley RN - 05/06/2024 1:47 PM EST Patient arrived from home, Dr. Jose Antonio schilling to speak with the patient regarding DCA with possible carotid stenting, consent obtained. Patient was placed supine on exam table prepped and draped in sterile fashion. Telemetry monitors placed, sedation provided by TONE ARTIST APPRENTICE. Patient tolerated procedure well. Transfer to ICU. [facility]jh[facility] Nurse Note* Se Hensley RN - 05/06/2024 1:47 PM EST Patient arrived from home, Dr. Jose Antonio schilling to speak with the patient regarding DCA with possible carotid stenting, consent obtained. Patient was placed supine on exam table prepped and draped in sterile fashion. Telemetry monitors placed, sedation provided by TONE ARTIST APPRENTICE. Patient tolerated procedure well. Transfer to ICU. * Se Hensley RN - 05/05/2024 1:45 PM EST Report given to IR rn, neuro assessment completed along with groin site check. documented in this [facility]02-05-2025 Consult note* Rianna Yan MD [...] PLAN: 1. Obtain P2 Y12 study 2. Tracy Brilinta 90 mg twice daily x 30 [...] 10 to 15 minutes. Was hospitalized at [place] and had Plavix added at that time. [...] Symptoms resolved. He was again hospitalized at [facility]. No medicationchanges were made. April 2024: [...] care Cc: Mey Loya APRN - * [employer] Work Phone: 1(765) 665-514202-05-2025 Consult note* Rianna Yan MD - 05/06/2024 [...] PLAN: 1. Obtain P2 Y12 study 2. Tracy Brilinta 90 mg twice daily x 30 [...] 10 to 15 minutes. Was hospitalized at [place] and had Plavix added at that time. [...] Symptoms resolved. He was again hospitalized at [facility]. No medicationchanges were made. April 2024: [...] Loya APRN - * documented in this [facility]02-05-2025 NoteIVR History & Physical Inpatient consult to Anesthesiology-- Consult performed by: DEJUAN Leal CNP Consult ordered by: DEJUAN Mak CNP Name: Krunal Leos : 1965 (Age-58 y.o.) Date of Service: Pt seen/examined on 05/06/2024 Procedure Information Date/Time: 05/06/24 1000 Procedure: IR ANGIOGRAM CEREBRAL W POSSIBLE INTERVENTION Location: [facility] Special Procedures Chief Complaint: Carotid stenosis History [...] for gait problem. Skin (more content not included)...[facility]02-05-2025 Note Patient: Krunal Leos Procedure Information Date/Time: 05/06/24 1000 Procedure: IR ANGIOGRAM CEREBRAL W POSSIBLE INTERVENTION Location: [facility] Special Procedures Relevant Problems Anesthesia (+) History [...] hyperplasia) No date: CHF (congestive heart failure) ([facility]) No date: Chronic idiopathic pulmonary fibrosis ([facility]) No date: CVA (cerebral vascular accident) ([facility]) No date: DM (diabetes mellitus), type 2 ([facility]) No date: HTN (hypertension) No date: Hyperlipidemia [...] no echo on file, yearly appointments with [place] observer [place] - on insulin pump, has basal [...] infarct, age indeterminate Equipment Requests: Additional Equipment [facility]sM[facility] Nurse Note* Se Hensley RN - 05/05/2024 1:45 PM EST Report given to IR rn, neuro assessment completed along with groin site check. [facility]01-27-2025 History of Present illness Narrative* Suzy Jauregui [...] Provider, Continuous Glucose Sensor (Dexcom G6 Sensor) [facility] Dexcom G6 Sensor Mis, USE DIRECTED FOR [...] Stallworth MD ergocalciferol (Vitamin D2) 1.25 MG (42419 UT) capsule Take 1 capsule by mouth [...] 2023. 10/06/23 01/06/24 Harmeet Stallworth MD HYDROcodone-acetaminophen ([place]) 5-325 MG tablet Take 1 tablet by [...] prior imaging and most recent CT from [facility]) and not his right carotid artery. It [...] Jauregui MD Vascular Surgery documented in this [facility]01-25-2025 [facility]01-23-2025 Note* Care Coordination - Coreen Clifton [...] Main Entrance which islocated at [address] onto [address] from [facility]. You may use [employer]. Each patient to receive one validation ticket for [employer]. It is also possible to park in the Main Parking Garage. Proceed to bridge into hospital and check in with Same Day Surgery. [facility] HospitalZlwdap94-85-5739 NoteSpoke with patient. Reviewed instructions for procedure. [...] at [address] from [address]. You may use [employer]. Each patient to receive one validation ticket for [employer]. It is also possible to park in the Main Parking Garage. Proceed to bridge into hospital and check in with Same Day Surgery.[facility]01-23-2025 Miscellaneous Notes* Care Coordination - Coreen Clifton [...] at [address] from [address]. You may use [employer]. Each patient to receive one validation ticket for [employer]. It is also possible to park in the Main Parking Garage. Proceed to bridge into hospital and check in with Same Day Surgery. documented in this [facility]01-22-2025 Evaluation note* Diagnosis Onset Date [...] 2:27pm Hyperlipidemia acute August 17, 2024 11:16am [facility] Work Phone: [phone]) [phone] Evaluation note* Diagnosis Onset Date Resolution Status [...] 1:22pm Fatigue noneactive August 06, 2024 2:27pm [facility] Work Phone: 1(833) 502-672501-15-2025 [facility]01-12-2025 Evaluation note* Diagnosis Onset Date Resolution [...] April 162024 9:21am [facility] 9:21am Obesity chronic April 16, 2024 [...] 1:22pm Fatigue noneactive August 06, 2024 2:27pm [facility] [employer] Work Phone: 1(905) 404-892412-27-2024 [facility]12-04-2024 [facility]11-13-2024 Telephone encounter Note* Telephone Encounter - [...] we will determine when to resume Eliquis. [employer] Work Phone: [phone]) 338-128611-13-2024 Miscellaneous Notes* Telephone Encounter - DEJUAN Mak [...] Name of caller: Megan Contact phone number: [phone] Relationship to Patient: care team amanda Provider: Jose Antonio Practice: Endovascular Chief Complaint/Reason for Call: please send all lab work from September to fax [phone] HEATH Best time of day caller can be reached: any Patient advised that office/PCP has 24-48 business hours to return their call: No documented in this [facility]11-13-2024 Miscellaneous Notes* Telephone Encounter - [...] Name of caller: Megan Contact phone number: [phone] Relationship to Patient: care team amanda Provider: Jose Antonio Practice: Endovascular Chief Complaint/Reason for Call: please send all lab work from September to fax [phone] HEATH Best time of day caller can be reached: any Patient advised that office/PCP has 24-48 business hours to return their call: No documented in this encounterSMemorial Health SystemYobgqg10-25-3994 Telephone encounter Note* Telephone Encounter - Lisa Sandoval - 02/12/2024 9:13 AM EST This patient left a voicemail returning a call regarding his test results with Dr. Hutton Please advise:) [facility] HospitalRmfkkc21-97-9835 Telephone encounter Note* Telephone Encounter - Ena Enriquez - 02/06/2024 7:52 AM EST Name of caller: Megan Contact phone number: [phone] Relationship to Patient: care team amanda Provider: Jose Antonio Practice: Endovascular Chief Complaint/Reason for Call: please send all lab work from September to fax [phone] HEATH Best time of day caller can be reached: any Patient advised that office/PCP has 24-48 business hours to return their call: No [facility] HospitalQrrcpj62-20-9445 [facility]10-07-2024 History of Present illness Narrative* Oziel Culp MD - 01/06/2024 11:00 AM EDT History of Present Illness: 58 yo man here for fu stroke and bilateral ICA stenosis. He originally presented 09/2023 for left hemiparesis and was transferred to [facility] from [facility]. He was found to [...] episode of left hemiparesis. He went to [facility] and was found to have increased stroke burden of the right hemisphere. Vascular surgery wasconsulted and no surgical procedure was recommended. He had a 3rd event of left hemiparesis the following week and a CT was done at [facility] ED. At that time clopidogrel was added (in addition to ASA and Eliquis). The patient returned to normal and was discharged from the ED to home. 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 He is anonsmoker. He does report [...] 2023., Disp: 30 tablet, Rfl: 0 HYDROcodone-acetaminophen ([place]) 5-325 MG tablet, Take 1 tablet by [...] , Rfl: ergocalciferol (Vitamin D2) 1.25 MG (49762 UT) capsule, Take 1 capsule by mouth [...] and clopidogrel I have requested images from [facility] to evaluate distribution of new ischemic events [...] Smoking cessation counseling: Yes documented in this [facility]08-15-2024 [facility]07-06-2024 Plan of care note* Care Plan [...] address these barriers include . Patient discharged. [facility] HospitalMfrckv15-80-2373 Miscellaneous Notes* Care Plan - Dariana Lawrence [...] Limits Permission given to speak with patient mechanical service representative/caregiver as indicated: Confirmation of Payer with patient/family: Yes Payer Name: [employer] [place]: No Confirmation of Primary Care Physician: Confirmed [...] 0 x 3. He was transferred from [facility] with CVA/TIA. Vascular and Neurology have been consulted. Needs carotid US. Anticipate home with no needs when stable.. . Gris Keith RN documented in this [facility]07-06-2024 Nurse Note* Dariana Lawrence RN - 10/05/2023 2:38 PM EDT Patient discharged at this time. Patient alert and oriented, reviewed discharge instructions with patient and daughter. PIV removed, tele removed. [place] [id number] Nurse Note* Dariana Lawrence RN - 10/05/2023 2:38 PM EDT Patient discharged at this time. Patient alert and oriented, reviewed discharge instructions with patient and daughter. PIV removed, tele removed. * Dalila Helms RN - 10/03/2023 7:30 PM EDT Pt arrived from [facility], ambulated to bed, NIH scale 1, pt A&O x 4, denies numbness ortingling, denies headache or dizziness, denies needs at this time, call light and belongings withinreach, will monitor. documented in this [facility]07-06-2024 NoteDischarge Summary Krunal Leos : [...] a few days ago was admitted to [facility] after he had left facial weakness [...] level of the V3 extending beyond the evfas-yb-qoqn with reconstitution. Atherosclerosis of the cavernous and [...] sodium chloride, sodium chlor (more content not included)...[facility] 10-05-2023 Hospital course Narrative* Harmeet Stallworth MD [...] a few days ago was admitted to [facility] after he had left facial weakness [...] level of the V3 extending beyond the tfmwz-na-qail with reconstitution. Atherosclerosis of the cavernous and [...] Complexity: follow up within 7-14 calendar days (17088) [] Severe Complexity: follow up within 7 calendar days (79348) FOLLOW UP TESTING, PENDING RESULTS OR REFERRALS AT TRANSITIONAL CARE VISIT: [] Yes [] No PENDING STUDIES: DISPOSITION: Home FACILITY/HOME CARE AGENCY NAME: Follow up with Suzy Jauregui MD [address] [facility] [address] Call Call your surgeon in 2 days & schedule follow-up, as needed or follow-up for ultrasound survaliance Oziel Culp MD [address] [facility] [phone] Schedule an appointment as soon as possible for a visit in 1 week(s) Pamela Morris MD [address] [facility] [address] Schedule an appointment as soon as possible for a visit in 1 week(s) Radha Khan [address] [facility] [address] [facility] [address] [facility] [phone] Schedule an appointment as soon as possible [...] MD 10/05/2023, 1:36 PM documented in this [facility]07-06-2024 NoteHospitalist Progress Note 10/05/2023 Subjective: Admit Date: 10/03/2023 PCP: RADHA KHAN Room#: W4-673/W9-873 A Brief Hospital course: Krunal Leos is a 58 y.o. male presenting with dizziness over the past 3 years however became more severe and more frequent a few days ago was admitted to [facility] after he had left facial weakness [...] level of the V3 extending beyond the ovfij-ta-hdbr with reconstitution. Atherosclerosis of the cavernous and [...] not previously counted (eac (more content not included)...[facility]07-06-2024 History of Present illness Narrative* Harmeet Stallworth MD - 10/05/2023 10:16 AM EDT Hospitalist Progress Note 10/05/2023 Subjective: Admit Date: 10/03/2023 PCP: RADHA KHAN Room#: W1-688/W7-225 A Brief Hospital course: Krunal Leos is a 58 y.o. male presenting with dizziness over the past 3 years however became more severe and more frequent a few days ago was admitted to [facility] after he had left facial weakness [...] level of the V3 extending beyond the aixcs-zs-hfhl with reconstitution. Atherosclerosis of the cavernous and [...] Contact: Tia Leos Relation: Spouse Preferred language: Jordanian Classroom Paraprofessional needed? No Secondary Emergency Contact: Clarisse Chris Mobile Relation: Daughter Preferred language: Jordanian Classroom Paraprofessional needed? No Harmeet Stallworth MD Division of Hospitalist Medicine Inpatient Medical Services/[facility] * Brenna Carrion - 10/05/2023 8:22 AM EDT Nutrition rescreen completed. Chart reviewed. Patient to be monitored and followed by the diet global position system technician. Dietitian available upon request. * Fran Lewis PT - 10/04/2023 9:32 AM EDT Images from the original note were not included. PHYSICAL THERAPY [facility] Initial Evaluation Name/MRN: Krunal Leos ([id number]) Evaluation Date: 10/04/2023 Date of : 1965 Admission Date: 10/03/2023 7:30 PM Age: 58 y.o. Room/Bed: [facility] A Discharge Recommendation: Home independently Equipment Needed: [...] , dtr, son-in-law. Two step entry to [employer]. Pt drives, works at [employer]. Son-in-law mows lawn and often orders groceries [...] of Care supervision is transferred to a [facility] Therapy Services Physical Therapist. Goals and/or treatment plan was established in collaboration with patient/family/other representatives. * Harmeet Stallworth MD - 10/04/2023 8:22 AM EDT Hospitalist Progress Note 10/04/2023 Subjective: Admit Date: 10/03/2023 PCP: RADHA KHAN Room#: W4-435/W4-781 A Brief Hospital course: Krunal Leos is a 58 y.o. male presenting with dizziness over the past 3 years however became more severe and more frequent a few days ago was admitted to [facility] after he had left facial weakness [...] level of the V3 extending beyond the itjhb-kc-jiyr with reconstitution. Atherosclerosis of the cavernous and [...] Contact: Tia Leos Relation: Spouse Preferred language: Jordanian Classroom Paraprofessional needed? No Secondary Emergency Contact: Clarisse Chris Mobile Relation: Daughter Preferred language: Jordanian Classroom Paraprofessional needed? No Harmeet Stallworth MD Division of Hospitalist Medicine Inpatient Medical Services/[facility] documented in this encounterSMemorial Health SystemExtmzj96-37-9014 Plan of care note* Care Plan - [...] to address these barriers include reorient frequently. [facility] HospitalYtbyfl22-19-4264 Hospital Discharge instructions* Discharge Instructions* Nely Lambert [...] and the need for follow-up with a physician/WELLNESS DIRECTOR/PA after discharge. NELY LAMBERT RN on 10/04/23 [...] through Care Everywhere. * Recovery After Stroke (Jordanian) * Caring for a Loved One After a Stroke (Jordanian) * Stroke (Jordanian) documented in this [facility]07-05-2024 Note* Care Coordination - Gris Keith RN - 10/04/2023 11:19 AM EDT Care Managment Initial Assessment Date: 10/04/2023 Patient Name: Krunal Leos : 1965 Patient Information Source of Information: Patient Cognition/Language: WFL - Within Functional Limits Permission given to speak with patient mechanical service representative/caregiver as indicated: Confirmation of Payer with patient/family: Yes Payer Name: Medical [place] : No Confirmation of Primary Care Physician: [...] 0 x 3. He was transferred from [facility] with CVA/TIA. Vascular and Neurology have been consulted. Needs carotid US. Anticipate home with no needs when stable.. . Gris Keith RN [facility] [id number] Note* Care Coordination - Gris Keith RN - 10/04/2023 11:19 AM EDT Care Managment Initial Assessment Date: 10/04/2023 Patient Name: Krunal Leos : 1965 Patient Information Source of Information: Patient Cognition/Language: WFL - Within Functional Limits Permission given to speak with patient mechanical service representative/caregiver as indicated: Confirmation of Payer with patient/family: Yes Payer Name: Medical Herb[place]: No Confirmation of Primary Care Physician: Confirmed [...] 0 x 3. He was transferred from [facility] with CVA/TIA. Vascular and Neurology have been consulted. Needs carotid US. Anticipate home with no needs when stable.. . Gris Keith RN [facility]07-05-2024 Consult note* Oziel Culp MD - 10/04/2023 10:09 AM EDTAssociated Order(s): Inpatient consult to Endovascular Neurology-- Inpatient consult to Endovascular Neurology-- Consult performed by: Mey Loya APRN - [employer] WEAVER Consult ordered by: Raphael Stone MD Reason for consult: vertebbral artery occlusion/ stenosis History Of Present Illness Krunal Leos is a 58 y.o. male presenting with left face and hand weakness in setting of chronic dizziness. Pt does have history of atrial fibrillation on Eliquis. 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 Coordination Vryoob-ca-hxiq, rapid alternating movements and ykii-sn-kceg normal bilaterally without dysmetria. Awake and alert [...] Team, ., . Personal review of: Imaging,Labs,ECHO},.},. [facility] Phone: 1([phone]) 261-709707-05-2024 Consult note* Oziel Culp MD - 10/04/2023 10:09 AM EDTAssociated Order(s): Inpatient consult to Endovascular Neurology-- Inpatient consult to Endovascular Neurology-- Consult performed by: Mey Loya, DEJUAN - NARR[employer] WEAVER Consult ordered by: Raphael Stone MD Reason for consult: vertebbral artery occlusion/ stenosis History Of Present Illness Krunal Leos is a 58 y.o. male presenting with left face and hand weakness in setting of chronic dizziness. Pt does have history of atrial fibrillation on Eliquis. 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 Coordination Ubotnz-pd-aslz, rapid alternating movements and zvyx-pt-lsbq normal bilaterally without dysmetria. Awake and alert [...] Name: Krunal Leos Patient : 1965 Acct: [id number] Date of Admission: 10/03/2023 Room/Bed: [facility] A PCP: RADHA KHAN History of Present Ilness: 58 y.o. is man with the chief Complaint of: transferred from [facility] evaluation of severe cerebrovascular disease presenting with [...] (Glucotrol) tablet 5 mg, 5 mg, [facility], [facility] Michael Rico MD, 5 mg at [...] reflex present -X Palate:intact -XI Shoulder shrug: {INTACT/ABNORMAL:[id number]::intactNormal -XII Tongue movement: Normal Funduscopic Exam: normal, [...] 401 ms QTC Interval 453 ms P Stonewall 12 degrees QRS Stonewall -16 degrees T Wave Stonewall 16 degrees LA Interval 160 ms POCT glucose meter Collection [...] the left vertebral artery MRI brain from [place] review ASSESSMENT / PLAN / SUGGESTIONS : [...] of Eliquis last night - [place] [facility] [place] - further [...] agreeable to the plan. documented in this [facility]07-05-2024 NotePHYSICAL THERAPY [facility] Initial Evaluation Name/MRN: Krunal Leos ([id number]) Evaluation Date: 10/04/2023 Date of : 1965 Admission Date: 10/03/2023 7:30 PM Age: 58 y.o. Room/Bed: [facility] A Discharge Recommendation: Home independently Equipment Needed: [...] , dtr, son-in-law. Two step entry to [facility] home. Pt drives, works at [employer]. Son-in-law mows lawn and often orders groceries [...] of Care supervision is transferred to a [facility] Therapy Services Physical Therapist. Goals and/or treatment plan was established in collaboration with patient/family/other representatives.[facility] [id number] Consult note* Pili Connolly MD - 10/04/2023 8:31 AM EDT Associated Order(s): IP CONSULT TO NEUROLOGY; IP CONSULT TO STROKE TEAM Images from the original note were not included. INITIAL CONSULT NOTE. STROKE SERVICE Patient Name: Krunal Leos Patient : 1965 Acct: [id number] Date of Admission: 10/03/2023 Room/Bed: [facility] A PCP: RADHA KHAN History of Present Ilness: 58 y.o. is man with the chief Complaint of: transferred from [facility] evaluation of severe cerebrovascular disease presenting with [...] reflex present -X Palate:intact -XI Shoulder shrug: {INTACT/ABNORMAL:[id number]::intactNormal -XII Tongue movement: Normal Funduscopic Exam: normal, [...] 401 ms QTC Interval 453 ms P Stonewall 12 degrees QRS Stonewall -16 degrees T Wave Stonewall 16 degrees LA Interval 160 ms POCT glucose meter Collection [...] the left vertebral artery MRI brain from [place] review ASSESSMENT / PLAN / SUGGESTIONS : [...] to be involved in this patient's care. [facility] Phone: 1(301) 768-880007-05-2024 NoteHospitalist Progress Note 10/04/2023 Subjective: Admit Date: 10/03/2023 PCP: RADHA KHAN Room#: W4-435/W4-435 A Brief Hospital course: Krunal Leos is a 58 y.o. male presenting with dizziness over the past 3 years however became more severe and more frequent a few days ago was admitted to [facility] after he had left facial weakness [...] level of the V3 extending beyond the avklf-ze-ykgl with reconstitution. Atherosclerosis of the cavernous and [...] carotids -Neurology consultation -En (more content not included)...[facility]07-05-2024 Consult note * Karol Melissa MD - [...] of Eliquis last night - [place] [facility] [place] - further [...] and he is agreeable to the plan. [facility] [id number] History and physical note* Michael Rico MD - 10/03/2023 9:26 PM EDT History Of Present Illness Krunal Leos is a 58 y.o. male presenting with dizziness over the past 3 years however became more severe and more frequent a few days ago was admitted to [facility] after he had left facial weakness [...] level of the V3 extending beyond the nknlq-ru-fqzz with reconstitution. Atherosclerosis of the cavernous and [...] consultation 3. Continue to monitor glycemic status. [facility] Phone: 1(245) 538-979407-04-2024 NoteHistory Of Present Illness Krunal Leos is a 58 y.o. male presenting with dizziness over the past 3 years however became more severe and more frequent a few days ago was admitted to [facility] after he had left facial weakness [...] level of the V3 extending beyond the cywel-wz-ukfv with reconstitution. Atherosclerosis of the cavernous and [...] Neurology consultation 3. Continue to monitor glycemic status.[facility] [id number] History and physical note* Michael Rico MD - 10/03/2023 9:26 PM EDT History Of Present Illness Krunal Leos is a 58 y.o. male presenting with dizziness over the past 3 years however became more severe and more frequent a few days ago was admitted to [facility] after he had left facial weakness [...] level of the V3 extending beyond the ulatm-jp-fevm with reconstitution. Atherosclerosis of the cavernous and [...] to monitor glycemic status. documented in this [facility]07-04-2024 Nurse Note* Dalila Helms RN - 10/03/2023 7:30 PM EDT Pt arrived from [facility], ambulated to bed, NIH scale 1, pt A&O x 4, denies numbness ortingling, denies headache or dizziness, denies needs at this time, call light and belongings [facility], will monitor. [facility] [id number] Note Discharge Instructions Thank you for allowing [facility] to assist you with your healthcare needs. [...] to receive it can visit one of [facility] vaccine clinics. There are many vaccine clinic locations within the [facility]. For locations and available times, please visit [email or web address].[place].gov/. It is important to note that some COVID mobile vaccine clinics are held outdoors and may be canceled in rainy or stormy conditions. To learn more about pediatric vaccinations (ages 5-11), we invite you to visit the [facility] webpage. [email or web address]/[email or web address]-Hinvyiodtd-Oooot-Kkz stions.htmlTo learn more about the COVID-19 vaccine, we invite you to visit the CDC website for a list of frequently asked questions.https://www.cdc.gov/coronavirus/2019-ncov/vaccines/faq.html [facility] Patient Portal Access Instructions: Stay connected with your healthcare team and access your personal medical information anytime with the [facility] Patient Portal. Please follow the directions below to create your [facility] account: 1.Access the email account you provided upon registration to the hospital/physician office.2.Look for an invitation email from [facility].3.Open the email and access the invitation link: AcceptInvitation to [facility].4.Fill in the required goldberg to create your account. To access your account, visit [employer]/[place]. Click the blue button labeled Access Patient [...] who you will allowto register on the [facility] Patient Portal for access to your information. You can also access the [facility] Patient Portal on the [employer] Anywhere collin. Simply click on Patient Portal and then log into your account. If you would like to receive a full copy of your medical records, please contact the [facility] Medical Records Department by calling [phone], Saturday through Saturday between 8 a.m. and [...] Call your local pharmacy or go to [email or web address] to find one close to you.3.Make use of household items: Use cat litter or old coffee grounds to dispose medications if other options arenot available. Mix your drugs with these household products, seal them in an airtight container andthrow it into the garbage. Call [facility]: [phone] to be sure your drugs can be [...] that I should contact my do ctor. Patient/Net Mobile Developer Signature: Date/Time: Relationship to Patient: Witness Name/Signature: Date/Time: [facility]07-04-2024 Note Date of Service 10/03/23 Chief Complaint CVA Subjective 58-year-old male with past medical history significant for paroxysmal atrial fibrillation anticoagulated with apixaban, HTN, HLD, type 2 diabetes mellitus, hypothyroidism, KIANNA noncompliant with CPAP,HFpEF, chronic hypoxic respiratory failure, GERD, carotid stenosis, NSTEMI, Hodgkin's disease. Patient presented to [facility] emergency department on 10/01/2023 with increased [...] vertebral artery from the origin to the S8zmdxxyu. Moderate stenosis of bilateral internal carotid arteries [...] Dobbs, vascular surgeon, who recommended transfer to [facility] for vascular surgery evaluation. [facility] transfer line called. Imaging reports faxed. Given [...] by DOMINIC FLEMING on 10/03/2023 04:22 PM [facility]07-03-2024 Note ORIGINAL EXAMINATION: CTA OF THE HEAD [...] Sign Date: 10/03/2023 10:41:49 AM Ordering Provider: [facility]07-03-2024 Note ORIGINAL EXAMINATION: CTA OF THE NECK10/02/2023 [...] Date: 10/03/2023 10:41:06 AM [facility]ing [facility]* Exam Date Time Procedure Performing Provider Status 10/02/23 2:41 PM Echocardiogram, Adul t with Bubble Study- Auth (Verified) [facility] 07-03-2024 Nurse Progress note ABDULLAHI AGUIRRE APRN, CNP CONSULTED STEM FOR NEURO CONSULT 1319. ER REGISTRATION NOTIFIED. Digitally Signed by Nelly Marsh RN on 10/02/2023 01:28 PM [facility]07-03-2024 Evaluation + Plan noteExtracted from: Title:History and Physical Author:ABDULLAHI AGUIRRE APRN-NARROW FAB[employer] WEAVER Date:10/02/23 1. CVA (cerebrovascular acci dent) Acute, [...] collaborating with physician, and documenting in chart. [facility] 07-03-2024 Nurse Progress note ABDULLAHI AGUIRRE APRN,NAV CONSULTED STEM FOR NEURO CONSULT 1319. ER REGISTRATION NOTIFIED. Digitally Signed by Nelly Marsh RN on 10/02/2023 01:28 PM [facility]07-03-2024 Note Date of Service 10/02/2023 Chief Complaint states was at [facility], felt maybe a little weak, siad that [...] type 2 diabetes and hypothyroidism, presented to [facility] emergency department with the chief complaint of weakness and possible right facial droop. Patient states that [facility] yesterday and suddenlyfelt a little [...] by ABDULLAHI AGUIRRE on 10/02/2023 12:50 PM [facility]07-03-2024 Note ORIGINAL HISTORY: TIA COMPARISON: Head CT [...] Date: 10/02/2023 8:38:30 AM Ordering Provider: [facility]-2023 Note ADDENDUM ADDENDUM: I agree with [...] Sign Date: 10/01/2023 11:46:49 PM Ordering Provider: [facility]07-02-2024 Note ORIGINAL EXAMINATION: ONE XRAY VIEW OF [...] Sign Date: 10/01/2023 9:13:56 PM Ordering Provider: [facility]07-02-2024 Note Sinus rhythm Atrial premature complexes Left ventricular hypertrophy Inferior infarct, old EKG interpretation is noted and agreed to in [facility]. The interpretation of this patient's EKG contributed directly to the care and management of this patient. Electronic Signature: TITA PARISH DO 10/01/2023 20:51:[address] [place] [address] 12-15-2023 Procedure [facility] 02-18-2023 Procedure [facility]05-05-[address] Ospina [facility] August 03, 2022 10:12am Note Date/Time August 03, 2022 10:12a m [facility] Medical Records Department [address] [place] [address] Discharge Summary 08/03/22 1011 MR#: [id number] Acct: [id number] Name: KRUNAL LEOS Rep #:[id number] : 1965 56 From: Eduin Ospina MD PCP: Dr. Radha Khan MD Status:ADM TALIB Location: [place] [address] Providers Date of Admission: 08/01/22 Date of [...] 81 mg PO DAILY@0800 03/30/20 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 meter,continuous ([facility] G6 Liberal Arts Teacher) #1 ea 07/26/20 pen needle, diabetic 31 gauge x 08/14 #1,200 ea 12/22/20 pen needle, diabetic 32 gauge x (BD Ultra-Fine Kiki Pen Needle) #150 ea 06/01/21 atorvastatin 80 mg tablet (Lipitor) 80 mg PO QHS cholesterol 09/04/21 metoprolol succinate 100 mg tablet,extended release 24 hr 100 mg PO DAILY #90 tabs 12/08/21 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 sensor ([facility] G6 Sensor device) #3 ea 12/29/21 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 transmitter ([facility] G6 Transmitter device) #1 ea 12/29/21 amlodipine [...] Discharge Orders/Prescriptions Prescriptions: Continued (DME) Dexcom G6 Liberal Arts Teacher Misc See Rx Instructions .ROUTE .MEDSUPPLY [...] Self Care Charges/Coding Visit Charges Inpatient E&M: 93986 Disch Hosp >30min 08/03/22 1012 <Electronically signed by Eduin Ospina MD> Cosigner Signature (if applicable): CC: Dr. Radha Khan MD; Dr. Eduin Ospina MD~ Signed [facility] Work Phone: 1(150) 584-183005-05-[address] Ospina [facility] May 5th, 2023 10:11am Note Date/Time August 03, 2022 7:37am [facility] Medical Records Department [address] [place] [address] Progress Note - Hospitalist 08/03/22 0737 MR#: [id number] Acct: [id number] Name: KRUNAL LEOS Rep #:[id number] : 1965 56 From: Eduin Ospina MD PCP: Dr. Radha Khan MD Status:ADM TALIB Location: [place] [address] Reason for Visit Reason for Visit: Diagnoses [...] 40 Minutes Charges/Coding Visit Charges Inpatient E&M: 74804 Subs Hosp L2 08/03/22 1011 <Electronically signed by Eduin Ospina MD> Cosigner Signature (if applicable): CC: ~ Signed [facility] Work Phone: 1(503) 526-942405-04-[address] Ospina [facility] August 02, 2022 10:50am Note Date/Time August 02, 2022 8:30am [facility] Medical Records Department [address] [facility] [place] [address] Progress Note - Hospitalist 08/02/22 0828 MR#: [id number] Acct: [id number] Name: KRUNAL LEOS Rep #:[id number] : 1965 56 From: Eduin Ospina MD PCP: Dr. Radha Khan MD Status:ADM TALIB Location: [place] [address] Reason for Visit Reason for Visit: Diagnoses [...] (Auto) 70.4 H, Lymph % (Auto) 13.4L, [place] % (Auto) 11.7 H, Eos % (Auto) [...] % (Auto) 59.7, Lymph % (Auto) 21.5, [place] % (Auto) 14.4 H, Eos % (Auto) [...] 40 Minutes Charges/Coding Visit Charges Inpatient E&M: 95647 Subs Hosp L2 08/02/22 1050 <Electronically signed by Eduin Ospina MD> Cosigner Signature (if applicable): CC: ~ Signed [facility] Work Phone: 1(104) 333-807305-04-2023 History and physical note Author Dr. Bell [facility] August 02, 2022 2:34am Note Date/Time August 01, 2022 10:32p m [facility] Medical Records Department [address] [place] [address] H&P Exam - Hospitalist 08/01/222 MR#: [id number] Acct: [id number] Name: KRUNAL LEOS Rep #:[id number] : 1965 56 From: Cookie Bell MD PCP: Dr. Radha Khan MD Status:ADM TALIB Location: [place] [address] HPI - General General Date of Admission: [...] neuropathy, Hx TIA who presents to the [facility] ED on 08/01/22 with history [...] meclizine 25 mg p.o. x1. [facility] Medical History (Updated 08/02/22 @ 02:28 by [...] Last Taken 05/09/22] 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 meter,continuous (Dexcom G6 Liberal Arts Teacher) #1 ea 07/26/20 [Rx Last Taken [...] (Auto) 70.4 H, Lymph % (Auto) 13.4L, [place] % (Auto) 11.7 H, Eos % (Auto) [...] neuropathy, Hx TIA who presents to the [facility] ED on 08/01/22 with history [...] 75 minutes. Charges/Coding Visit Charges Inpatient E&M: 47578 Init Hosp L3 Procedures Hospitalists Procedures: 19937 Advncd Care Plan 30 Min 08/02/22 0234 <Electronically signed by Cookie Bell MD> Cosigner Signature (if applicable): CC: Dr. Radha Khan MD; Dr. Cookie Bell MD~ Signed [facility] Work Phone: 1(433) 112-478205-04-[address] Hill [facility] August 01, 2022 11:55pm Note Date/Time August 01, 2022 8:08pm [facility] Medical Records Department [address] [place] [address] Emergency Department Summary 08/01/22 MR#: [id number] Acct: [id number] Name: KRUNAL LEOS Rep #:[id number] : 1965 56 From: Nely Hill MD PCP: Dr. Radha Khan MD Status:ADM TALIB Location: [place] [address] HPI History of Present Illness Chief Complaint: [...] equivocal and norecommendation for surgery was made. [facility] Medical History Acute kidney injury [...] Last Taken 05/09/22] 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 meter,continuous (Dexcom G6 Liberal Arts Teacher) #1 ea 07/26/20 [Rx Last Taken [...] Medical decision making narrative: Patient placed on lumber grader. EKG obtained to evaluate for cardiac arrhythmia/ischemia. [...] 70.4 H Lymph % (Auto) 13.4 L [place] % (Auto) 11.7 H Eos % (Auto) [...] (Auto) Neut % (Auto) Lymph % (Auto) [place] % (Auto) Eos % (Auto) Baso % [...] our attention. I spoke with neurology at [facility]. Given that the patient is already on [...] Vertigo Prescriptions: No Action (DME) Dexcom G6 Liberal Arts Teacher Misc See Rx Instructions .ROUTE .MEDSUPPLY [...] Provider] - Disposition Disposition: Acute Care Hospital [facility] What to do if you have Problems For any increased pain, shortness of breath, bleeding, nausea or vomiting, chestpain, or any unexpected problems, contact your Primary Care Provider. Call [facility] ([phone]) or report to the closest Emergency Room. Call 911 if necessary. 08/01/22 8539 <Electronically signed by Nely Hill MD> Cosigner Signature (if applicable): CC: Dr. Radha Khan MD ~ Signed [facility] Work Phone: Evaluation note* Diagnosis Onset [...] heart failure) chronic KIANNA (obstructive sleep apnea) [facility] Work Phone: Evaluation note* Diagnosis Onset Date [...] (obstructive sleep apnea) chronic Diabetes chronic Obesity [facility] Work Phone: Evaluation note* Diagnosis Onset Date [...] Paroxysmal atrial fibrillation acute Essential (primary) hypertension [facility] Work Phone: Evaluation note* Diagnosis Onset Date Resolution Status Left carotid bruit acute Paroxysmal atrial fibrillation acute Essential (primary) hypertension chronic Diabetes chronic Essential (primary) hypertension chronic Obesity chronic Dyspnea on exertion acute Chronic diastolic CHF (congestive heart failure) chronic KIANNA (obstructive sleep apnea) chronic Dyspnea on exertion acute Left carotid bruit acute Paroxysmal atrial fibrillation acute Essential (primary) hypertension [facility] Work Phone: Evaluation note* Diagnosis Onset Date Resolution Status Diabetes chronic Essential (primary) hypertension chronic Obesity chronic Dyspnea on exertion acute Chronic diastolic CHF (congestive heart failure) chronic KIANNA (obstructive sleep apnea) chronic Dyspnea on exertion acute Left carotid bruit acute Paroxysmal atrial fibrillation acute Essential (primary) hypertension chronic Diabetes chronic Essential (primary) hypertension chronic Obesity [facility] Work Phone: Evaluation note* Diagnosis Onset Date [...] Paroxysmal atrial fibrillation acute Essential (primary) hypertension [facility] Work Phone: Evaluation note* Diagnosis Onset Date [...] apnea) chronic Diabetes chronic Hypothyroidism chronic Obesity [facility] Work Phone: Evaluation note* Diagnosis Onset Date [...] apnea) chronic Diabetes chronic Hypothyroidism chronic Obesity [facility] Work Phone: Evaluation note* Diagnosis Onset Date [...] chronic Hypothyroidism chronic Obesity chronic Vertigo acute [facility] Work Phone: Evaluation note* Diagnosis Onset Date Resolution Status Chronic diastolic CHF (congestive heart failure) chronic Chronic respiratory failure with hypoxia chronic Dyspnea on exertion chronic Obesity chronic KIANNA (obstructive sleep apnea) chronic Diabetes chronic Hypothyroidism chronic Obesity chronic Vertigo acute Diabetes chronic Essential (primary) hypertension chronic Insulin pump titration chron ic Obesity chronic Presence of insulin pump chr onic [facility] Work Phone: Evaluation note* Diagnosis Onset Date Resolution Status Vertigo acute Diabetes chronic Essential (primary) hypertension chronic Insulin pump titration chron ic Obesity chronic Presence of insulin pump chr on Carotid stenosis acute Double vision acute Left carotid bruit acute Vertigo acute [facility] Work Phone: Evaluation note* Diagnosis Onset Date Resolution Status Carotid stenosis acute Double vision acute Left carotid bruit acute Vertigo acute Post op infection acute Thyroid nodule acute CKD (chronic kidney disease) chronic Diabetes chronic Hypothyroidism chronic Microalbuminuria chronic Obesity chronic Multiple thyroid nodules acu te [facility] Work Phone: Evaluation note* Diagnosis Onset Date Resolution Status Post op infection acute Thyroid nodule acute CKD (chronic kidney disease) chronic Diabetes chronic Hypothyroidism chronic Microalbuminuria chronic Obesity chronic Multiple thyroid nodules acu te CKD (chronic kidney disease) chronic Diabetes chronic Hypothyroidism chronic Microalbuminuria chronic Neuropathy chronic Obesity [facility] Work Phone: Evaluation note* Diagnosis Onset Date [...] on exertion chronic Essential (primary) hypertension chronic [facility] Work Phone: Evaluation note* Diagnosis Onset [...] hypertension chronic Multiple thyroid nodules acu te [facility] Work Phone: Evaluation note* Diagnosis Onset [...] nodules acu te Polyneuropathy acute Hyperlipidemia chronic [facility] Work Phone: Evaluation note* Diagnosis Onset [...] cerebrovascular accident (CVA) acute Peripheral vestibulopathy ac redding Polyneuropathy acute Hyperlipidemia chronic Double vision resolved [facility] Work Phone: Evaluation note* Diagnosis Onset Date Resolution Status CKD (chronic kidney disease) chronic Diabetes chronic Hypothyroidism chronic Microalbuminuria chronic Neuropathy chronic Obesity chronic Left carotid bruit acute Paroxysmal atrial fibrillation acute Dyspnea on exertion chronic Essential (primary) hypertension chronic Multiple thyroid nodules acu te History of TIA (transient ischemic attack) acute Ischemic cerebrovascular accident (CVA) acute Peripheral vestibulopathy ac redding Polyneuropathy acute Hyperlipidemia chronic Double vision resolved [facility] Work Phone: Evaluation note* Diagnosis Onset Date Resolution Status Left carotid bruit acute Paroxysmal atrial fibrillation acute Dyspnea on exertion chronic Essential (primary) hypertension chronic Multiple thyroid nodules acu te History of TIA (transient ischemic attack) acute Ischemic cerebrovascular accident (CVA) acute Peripheral vestibulopathy ac redding Polyneuropathy acute Hyperlipidemia chronic Double vision resolved CKD (chronic kidney disease) chronic Diabetes chronic Essential (primary) hypertension chronic Hypothyroidism chronic Neuropathy chronic Obesity chronic Carotid stenosis acute History of TIA (transient ischemic attack) acute Ischemic cerebrovascular accident (CVA) acute Polyneuropathy acute [facility] Work Phone: Evaluation note* Diagnosis Onset Date Resolution Status CKD (chronic kidney disease) chronic Diabetes chronic Essential (primary) hypertension chronic Hypothyroidism chronic Neuropathy chronic Obesity chronic History of TIA (transient ischemic attack) acute Ischemic cerebrovascular accident (CVA) acute Polyneuropathy acute Carotid stenosis chronic Carotid stenosis chronic Carotid stenosis chronic [facility] Work Phone: Evaluation note* Diagnosis Cerebrovascular accident (CVA), unspecified mechanism (HCC)- Primary Cerebrovascular accident (CVA), unspecified mechanism (HCC) documented in this encounter [facility]* Diagnosis Bilateral carotid artery stenosis- Primary Occlusion and stenosis of carotid artery without mention of cerebral infarction Ischemic cerebrovascular accident (CVA) (HCC) documented in this encounter [facility] note* Diagnosis Chronic kidney disease, unspecified CKD stage- Primary documented in this encounter [facility] note* Diagnosis Ischemic cerebrovascular accident (CVA) (HCC)- Primary Bilateral carotid artery stenosis Occlusion and stenosis of carotid artery without mention of cerebral infarction documented in this encounter [facility] note* Diagnosis Bilateral carotid artery occlusion Occlusion and stenosis of carotid artery without mention of cerebral infarction [facility]* Diagnosis Cerebrovascular accident (CVA), unspecified mechanism (HCC)- Primary Bilateral carotid artery stenosis Occlusion and stenosis of carotid artery without mention of cerebral infarction [facility]* Diagnosis Ischemic cerebrovascular accident (CVA) (HCC) Bilateral carotid artery stenosis Occlusion and stenosis of carotid artery without mention of cerebral infarction [facility]* Diagnosis Bilateral carotid artery stenosis- Primary Occlusion and stenosis of carotid artery without mention of cerebral infarction documented in this encounter [facility]* Diagnosis ILD (interstitial lung disease) (Multi)- Primary Postinflammatory pulmonary fibrosis Pulmonary hypertension (Multi) Other chronic pulmonary heart diseases Chronic respiratory failure with hypoxia documented in this encounter [facility] Work Phone: Evaluation note* Diagnosis ILD (interstitial lung disease) (Multi) Postinflammatory pulmonary fibrosis documented in this encounter [facility] Work Phone: Evaluation note* Diagnosis Pulmonary hypertension (Multi) Other chronic pulmonary heart diseases documented in this encounter [facility] Work Phone: Evaluation note* Diagnosis ILD (interstitial lung disease) (Multi) Postinflammatory pulmonary fibrosis documented in this encounter [facility] Work Phone: Evaluation note* Diagnosis ILD (interstitial lung disease) (Multi)- Primary Postinflammatory pulmonary fibrosis Chronic respiratory failure with hypoxia KIANNA (obstructive sleep apnea) Obstructive sleep apnea (adult) (pediatric) BMI 40.0-44.9, adult (Multi) Diastolic heart failure, unspecified HF chronicity documented in this encounter [facility] Work Phone: Evaluation note* Diagnosis ILD (interstitial lung disease) (Multi) Postinflammatory pulmonary fibrosis documented in this encounter [facility] Work Phone: Evaluation note* Diagnosis ILD (interstitial lung disease) (Multi)- Primary Postinflammatory pulmonary fibrosis Chronic respiratory failure with hypoxia KIANNA (obstructive sleep apnea) Obstructive sleep apnea (adult) (pediatric) BMI 40.0-44.9, adult (Multi) Diastolic heart failure, unspecified HF chronicity documented in this encounter [facility] Work Phone: Evaluation note* Diagnosis ILD (interstitial lung disease) (Multi) Postinflammatory pulmonary fibrosis documented in this encounter [facility] Work Phone: History of Present illness Narrative* Rosalino Padron MD - 08/28/2024 1:00 PM EDT Images from the original note were not included. Department of Medicine Division of Pulmonary, Critical Care, and Sleep Medicine Consultation [address] [facility] Patient was referred by his [...] surgery total pulmonary decortication in 2016 at [facility]. He was hospitalized in [place] from 03/02-03/04/2024 for acute hypoxic respiratory failure. [...] Review Audit Reviewed by Heavenly Sparks MA (Quality Coordinator) on 08/28/24 at 1158 Medication Order Taking? Sig Documenting Provider Last Dose Status albuterol 90 mcg/actuation inhaler [id number] INHALE 2 PUFFS BY MOUTH EVERY 4 HOURS NEEDED FOR SHORTNESS OF BREATH OR WHEEZING Historical ProviderMD Active amLODIPine (Norvasc) 5 mg tablet [id number] Take 1 tablet (5 mg) by mouth once daily. Historical ProviderMD Active aspirin 325 mg tablet [id number] Take 1 tablet (325 mg) by mouth once daily. Historical ProviderLORNActive atorvastatin (Lipitor) 80 mg tablet [id number] Take 1 tablet (80 mg) by mouth once daily at bedtime.Historical ProviderMD Active betamethasone, augmented, (Diprolene) 0.05 % lotion [id number] APPLY TO RASH ON THE TRUNK OR SCALP 1-2 TIMES DAILY NEEDED Historical ProviderMD Active bismuth subsalicylate (Pepto Bismol) 262 mg chewable tablet [id number] CHEW AND SWALLOW 2 TABLETS BYMOUTH 3 TIMES A DAY for 2 weeks. max 16 tablets per 24 hours Patient not taking: Reported on 08/07/2024 Historical ProviderMD Active Brilinta 90 mg tablet [id number] 1 tablet (90 mg). Historical ProviderMD Active busPIRone (Buspar) 10 mg tablet [id number] Take 1 tablet (10 mg) by mouth 3 times a day. Historical ProviderMD Active clopidogrel (Plavix) 75 mg tablet [id number] Take 1 tablet (75 mg) by mouth early in the morning.. Historical ProviderMD Active dapagliflozin propanediol (Farxiga) 5 mg [id number] Take 1 tablet (5 mg) by mouth once daily. Gloria Rahman MD Active Dexcom G6 Sensor device [id number] USE DIRECTED FOR CONTINUOUS BLOOD GLUCOSE MONITORING, CHANGE SENSOR EVERY 10 DAYS Historical MD Lacey Active DULoxetine (Cymbalta) [address] capsule [id number] Take 1 capsule (60 mg) by mouth once daily. Gloria Rahman MD Active Eliquis 5 mg tablet [id number] Take 1 tablet (5 mg) by mouth 2 times a day. Historical ProviderMD Active ergocalciferol (Vitamin D-2) 1250 mcg (50,000 units) capsule [id number] Take 1 capsule (1,250 mcg) by mouth. Historical ProviderMD Active fenofibrate (Tricor) 54 mg tablet [id number] Take 1 tablet (54 mg) by mouth once daily. Historical MD Lacey Active furosemide (Lasix) 40 mg tablet [id number] Take 1 tablet (40 mg) by mouth. Historical ProviderMD Active glimepiride (Amaryl) 4 mg tablet [id number] Take 1 tablet (4 mg) by mouth early in the morning.. Patient not taking: Reported on 08/07/2024 Gloria Rahman MD Active glipiZIDE (Glucotrol) 5 mg tablet [id number] Take 1 tablet (5 mg) by mouth. Patient not taking: Reported on 08/07/2024 Gloria Rahman MD Active HumuLIN R U-500, Conc, Insulin 500 unit/mL CONCENTRATED injection [id number] INJECT 75 UNITS DAILY VIA CONTINUOUS SUBCUTANEOUS INFUSION. DISCARD VIAL AFTER 40 DAYS Patient not taking: Reported on 08/07/2024 Gloria Rahman MD Active Jardiance 25 mg [id number] Take 1 tablet (25 mg) by mouth once daily. Gloria ProviderMD Active levothyroxine (Synthroid, Levoxyl) 112 mcg tablet [id number] Take 1 tablet (112 mcg) by mouth once daily. Gloria Rahman MD Active lisinopril 40 mg tablet [id number] Take 1 tablet (40 mg) by mouth once daily. Gloria Rahman MD Active metFORMIN (Glucophage) 500 mg tablet [id number] Take 1 tablet (500 mg) by mouth 2 times daily (morning and late afternoon). Historical ProviderMD Active metoprolol succinate XL (Toprol-XL) 100 mg 24 hr tablet [id number] TAKE 1 TABLET BY MOUTH DAILY for heart Historical ProviderMD Active Mucinex DM 60-1,200 mg tablet extended release 12 hr [id number] Take 1 tablet by mouth every 12 hours. Gloria Rahman MD Active oxyCODONE-acetaminophen (Percocet) 5-325 mg tablet [id number] Take 1 tablet by mouth 2 times a day as needed. Patient not taking: Reported on 08/07/2024 Gloria Rahman MD Active pantoprazole (ProtoNix) 40 mg EC tablet [id number] Take 1 tablet (40 mg) by mouth. Historical ProviderMD Active potassium citrate CR (Urocit-K-10) 10 mEq ER tablet [id number] Take 1 tablet (10 mEq) by mouth twicea day. Historical ProviderMD Active predniSONE (Deltasone) 20 mg tablet [id number] Take 0.5 tablets (10 mg) by mouth early in the morning.. Historical ProviderMD Active predniSONE (Deltasone) 20 mg tablet [id number] Take 2 tablets (40 mg) by mouth once daily. Patient not taking: Reported on 08/07/2024 Rosalino Padron MD Active predniSONE (Deltasone) 5 mg tablet [id number] Take 4 tablets (20 mg) by mouth once daily for 30 days, THEN 3 tablets (15 mg) once daily for 30 days, THEN 2 tablets (10 mg) once daily for 30 days, THEN1 tablet (5 mg) once daily for 14 days. Rosalino Padron MD Active spironolactone (Aldactone) 50 mg tablet [id number] Take 1 tablet (50 mg) by mouth once daily. Patient not taking: Reported on 08/07/2024 Gloria Rahman MD Active tamsulosin (Flomax) 0.4 mg 24 hr capsule [id number] Take 1 capsule (0.4 mg) by mouth once daily. Gloria ProviderMD Active traMADol (Ultram) 50 mg tablet [id number] Take 1 tablet (50 mg) by mouth. [...] Rosalino Padron MD 08/28/2024 documented in this [facility] Work Phone: Hospital course Narrative No data available for this section [facility] Discharge instructions No data available for this section [facility] Discharge instructions* Attachments The following attachments cannot be sent through Care Everywhere. * Arteriogram Discharge Instructions ([place]ian) [facility] Attachments The following attachments cannot be sent through Care Everywhere. * Risk Factors for Stroke (Jordanian) * Stroke (Jordanian) * Carotid Artery Disease (Jordanian) documented in this [facility]* Patient Instructions* Rosalino Padron MD - [...] and walking test. For scheduling purposes: Call [phone] to schedule a breathing or a walking test Call [phone] to schedule EKG's, Echocardiograms and Cardiopulmonary Stress Tests. Call [phone] to schedule Radiology tests such as Nuclear Medicine Stress Tests, CT Scans, and MRI's. Should you have any questions Please Call our pulmonary nurse Linda Marie at [phone] or my fitter's assistant Puneet Leone at [phone] documented in this [facility] Work Phone: Reason for referral (narrative)No reason for [facility]: Reason for visit Narrative* Imaging (Routine) - Closed Specialty Diagnoses / Procedures Referred By Contac t Referred To Contact Radiology Diagnoses Bilateral carotid artery stenosis Ischemic cerebrovascular accident (CVA) (HCC) Procedures CTA head neck angio w and wo IV contrast Oziel Culp MD [address] [place] [address] Phone: tel: fax: Referral ID Status Reason Start Date Expiration Date Visits Re quested Visits Authorized [id number] Closed 01/06/2024 01/05/2025 1 1 [facility] [employer] for visit Narrative* Imaging (Routine) - Closed Specialty Diagnoses / Procedures Referred By Contac t Referred To Contact Cardiology Diagnoses Bilateral carotid artery occlusion Procedures Vascular US carotid artery duplex bilateral Suzy Jauregui MD [address] [place] [address] Phone: tel: fax: Referral ID Status Reason Start Date Expiration Date Visits Re quested Visits Authorized [id number] Closed 10/15/2023 10/14/2024 [facility] (Routine) - Closed Specialty Diagnoses / Procedures Referred By Contac t Referred To Contact Radiology Diagnoses Ischemic cerebrovascular accident (CVA) (HCC) Bilateral carotid artery stenosis Procedures IR angiogram cerebral with possible intervention Mey Loya, 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 - [employer] [address] [address] Phone: tel: fax: Referral ID Status Reason Start Date Expiration Date Visits Re quested Visits Authorized [id number] Closed 02/13/2024 02/12/2025 1 1 [facility] for visit Narrative* Imaging (Routine) - Authorized Specialty Diagnoses / Procedures Referred By Contac t Referred To Contact Radiology Diagnoses ILD (interstitial lung disease) (Multi) Procedures [place] [address] [place] [id number] Phone: tel: fax: Referral ID Status Reason Start Date Expiration Date Visits Requested Visits Authorized [id number] Authorized Perform Procedure 06/26/2024 06/26/2025 1 1 [facility] Work Phone: reason for visit Narrative* CV Imaging (Routine) - Authorized Specialty Diagnoses / Procedures Referred By Contac t Referred To Contact Cardiology Diagnoses Pulmonary hypertension (Multi) Procedures Transthoracic Echo (TTE) Complete LA ECHO TTHRC R-T 2D W/WOM-MODE COMPL SPEC&[place] [address] [place] [address] Phone: tel: fax: Referral ID Status Reason Start Date Expiration Date Visits Requested Visits Authorized [id number] Authorized Perform Procedure 06/26/2024 06/26/2025 1 1 [facility] Work Phone: reason for visit Narrative* PFT (Routine) - Pending Review Specialty Diagnoses / Procedures Referred By Contac t Referred To Contact Diagnoses ILD (interstitial lung disease) (Multi) Procedures Pulmonary Stress Test (6 Min. Walk) [place] [address] [place] [address] Phone: tel: fax: Referral ID Status Reason Start Date Expiration Date V isits Requested Visits Authorized [id number] Pending Review 06/26/2024 06/26/2025 1 1 [facility] Work Phone: reason for visit Narrative* PFT (Routine) - Pending Review Specialty Diagnoses / Procedures Referred By Contac t Referred To Contact Diagnoses ILD (interstitial lung disease) (Multi) Procedures Complete Pulmonary Function Test (Spirometry/DLCO/Lung Volumes) Rosalino Padron [place] [id number] [place] [address] Phone: tel: fax: Referral ID Status Reason Start Date Expiration Date V isits Requested Visits Authorized [id number] Pending Review 06/26/2024 06/26/2025 1 1 [facility] Work Phone: reason for visit Narrative* PFT (Routine) - Pending Review Specialty Diagnoses / Procedures Referred By Contac t Referred To Contact Diagnoses ILD (interstitial lung disease) (Multi) Procedures Spirometry Pre/Post Bronchodilator Rosalino Padron MD [id number] [place] [address] Phone: tel: fax: Referral ID Status Reason Start Date Expiration Date V isits Requested Visits Authorized [id number] Pending Review 08/07/2024 08/07/2025 1 1 [facility] Work Phone: reason for visit Narrative* PFT (Routine) - Pending Review Specialty Diagnoses / Procedures Referred By Contac t Referred To Contact Diagnoses ILD (interstitial lung disease) (Multi) Procedures Pulmonary Stress Test (6 Min. Walk) Rosalino Padron MD [id number] [place] [address] Phone: tel: fax: Referral ID Status Reason Start Date Expiration Date V isits Requested Visits Authorized [id number] Pending Review 08/07/2024 08/07/2025 1 1 [facility] Work Phone: reason for visit Narrative* PFT (Routine) - Pending Review Specialty Diagnoses / Procedures Referred By Contac t Referred To Contact Diagnoses ILD (interstitial lung disease) (Multi) Procedures DLCO / [place] [address] [place] [address] Phone: tel: fax: Referral ID Status Reason Start Date Expiration Date V isits Requested Visits Authorized [id number] Pending Review 08/07/2024 08/07/2025 1 1 [facility] Work Phone: reason for visit Narrative* Endoscopy (Routine) - Authorized Specialty Diagnoses / Procedures Referred By Contac t Referred To Contact Gastroenterology Diagnoses ILD (interstitial lung disease) (Multi) Procedures Bronchoscopy Tier 2; w BAL, [place] [address] [place] [address] Phone: tel: fax: Referral ID Status Reason Start Date Expiration Date V isits Requested Visits Authorized [id number] Authorized 08/11/2024 08/11/2025 1 1 [facility] Work Phone: Summary Purpose Family History [...] Documents on File Type Date Recorded Patient Net Mobile Developer Expl anation Advance Directive(s) 08/19/2015 12:10 PM Advance Directive(s) 09/10/2015 4:56 PM Advance Directive Response Recorded Date/ Time Name of Medical Power of Stage Driver Tia Leos/segundo awais June 19, 2021 11:06am Advance Directives Yes September 08 3:58am Living Will No July 16, 2021 2:23pm Power of Stage Driver No July 16 2:23pm Advance Directive Response Recorded Date/ Time Name of Medical Power of Stage Driver Tia Glasgo/w awais June 19, 2021 11:06am Advance Directives Yes September 08 3:58am Living Will Yes September 04, 2021 6 :29am Power of Stage Driver Yes September 04, 2021 6:29am Advance Directive Response Recorded Date/ Time Name of Medical Power of Stage Driver Tia Glasgo/w awais June 19, 2021 11:06am Name of Medical Power of Stage Driver tia glasgo September 04, 2021 6:29am Advance Directives Yes September 08 3:58am Living Will Yes September 04, 2021 6 :29am Power of Stage Driver Yes September 04, 2021 6:29am Advance Directive Response Recorded Date/ Time Advance Directives Yes September 08 2:58am Living Will Yes September 04, 2021 5 :29am Power of Stage Driver Yes September 04, 2021 5:29am Advance Directive Response Recorded Date/ Time Advance Directives on File Yes 2022 8:42am Name of Medical Power of Stage Driver Tia () May 09, 2022 8:42am Advance Directives Yes May 09, 2022 8:42am Living Will Yes May 09 8:42am Power of Stage Driver Yes May 09, 2022 8:42am Advance Directive Response Recorded Date/ Time Advance Directives on File Yes 2022 9:42am Name of Medical Power of Stage Driver Tia () May 09, 2022 9:42am Advance Directives Yes May 09, 2022 9:42am Living Will Yes May 09 9:42am Power of Stage Driver Yes May 09, 2022 9:42am Advance Directive Response Recorded Date/ Time Advance Directives on File Yes 2022 9:42am Name of Medical Power of Stage Driver Tia () May 09, 2022 9:42am Name of Medical Power of Stage Driver tia [email or web address]-3 [phone] August 02, 2022 12:47am Advance Directives Yes May 09, 2022 9:42am Living Will Yes August 02, 2022 12 :47am Power of Stage Driver Yes August 02, 2022 12:47am Advance Directive Response Recorded Date/ Time Name of Medical Power of Stage Driver tia Evangelista-Carmen [phone] August 02, 2022 12:47am Advance Directives Yes May 09, 2022 9:42am Living Will Yes August 02, 2022 12 :47am Power of Stage Driver Yes August 02, 2022 12:47am Advance Directive Response Recorded Date/ Time Advance Directives Yes May 09, 2022 9:42am Living Will Yes August 02, 2022 12 :47am Power of Stage Driver Yes August 02, 2022 12:47am Advance Directive Response Recorded Date/ Time Name of Medical Power of Stage Driver TIA February 14, 2023 9:43am Advance Directives Yes May 09, 2022 8:42am Living Will Yes February 14 023 9:43am Power of Stage Driver Yes February 14, 2023 9:43am Advance Directive Response Recorded Date/ Time Name of Medical Power of Stage Driver TIA February 14, 2023 10:43am Advance Directives Yes May 09, 2022 9:42am Living Will Yes February 14 023 10:43am Power of Stage Driver Yes February 14, 2023 10:43am Advance Directive Response Recorded Date/ Time Advance Directives Yes May 09, 2022 9:42am Living Will Yes February 14 10:43am Power of Stage Driver Yes February 14, 2023 10:43am Documents on File Type Date Recorded Patient Net [employer] Developer Expl anation DNR (Do Not Resuscitate) 10/03/2023 8:09 PM Date Activated Date Inactivated Comments 10/03/2023 9:41 PM 10/05/2023 5:06 PM Documents on File Type Date Recorded Patient Net Mobile Developer Expl anation DNR (Do Not Resuscitate) 10/03/2023 8:09 PM Date Activated Date Inactivated Comments 10/03/2023 9:41 PM 10/05/2023 5:06 PM Advance Directive Response Recorded Date/ Time Living Will Yes February 14 023 10:43am Do you have a Healthcare Power of Stage Driver? Yes February 14, 2023 10:43am Living Will Yes November 15 11:41am Do you have a Healthcare Power of Stage Driver? Yes November 16, 2023 11:41am Living Will Yes January 20 4:34am Do you have a Healthcare Power of Stage Driver? Yes January 21, 2024 4:34am Advance Directives Yes April 30, 2024 10:06am Living Will Yes April 12 3:26pm Do you have a Healthcare Power of Stage Driver? Yes April 12, 2024 3:26pm Name of Medical Power of Stage Driver - TIA April 12, 2024 3:26pm Living Will Yes April 24 10:37pm Do you have a Healthcare Power of Stage Driver? Yes April 24, 2024 10:37pm Name of Medical Power of Stage Driver tia April 24, 2024 10:37pm Advance Directive Response Recorded Date/ Time Living Will Yes February 14 10:43am Do you have a Healthcare Power of Stage Driver? Yes February 14, 2023 10:43am Living Will Yes November 15 11:41am Do you have a Healthcare Power of Stage Driver? Yes November 16, 2023 11:41am Living Will Yes January 20 4:34am Do you have a Healthcare Power of Stage Driver? Yes January 21, 2024 4:34am Advance Directives Yes April 30, 2024 10:06am Living Will Yes April 24 10:37pm Do you have a Healthcare Power of Stage Driver? Yes April 24, 2024 10:37pm Name of Medical Power of Stage Driver tia April 24, 2024 10:37pm Advance Directive Response Recorded Date/ Time Living Will Yes February 14 10:43am Do you have a Healthcare Power of Stage Driver? Yes February 14, 2023 10:43am Living Will Yes January 20 4:34am Do you have a Healthcare Power of Stage Driver? Yes January 21, 2024 4:34am Advance Directives Yes April 30, 2024 10:06am Living Will Yes April 24 10:37pm Do you have a Healthcare Power of Stage Driver? Yes April 24, 2024 10:37pm Name of Medical Power of Stage Driver tia April 24, 2024 10:37pm Advance Directive Response Recorded Date/ Time Advance Directives Yes April 30, 2024 10:06am Advance Directive Response Recorded Date/ Time Do you have a Healthcare Power of Stage Driver? Yes September 26, 2024 3:39pm Advance Directives Yes April 30, 2024 10:06am Chief Complaint and Reason for Visit Chief Complaint 4 M FU UNSTABLE ANGINA, SOB UNSTABLE ANGINA, SOB UNSTABLE ANGINA, SOB UNSTABLE ANGINA, SOB UNSTABLE ANGINA, SOB HYPOXIA HYPOXIA HYPOXIA 1 M FU [address] fu Shortness of breath dizziness Reason [...] SOB HYPOXIA HYPOXIA HYPOXIA 1 M [address] fu Shortness of breath dizziness KIANNA; [...] SOB HYPOXIA HYPOXIA HYPOXIA 1 M [address] fu Shortness of breath dizziness KIANNA; [...] HYPOXIA HYPOXIA HYPOXIA 1 M FU [address] fu Shortness of breath dizziness KIANNA; [...] HYPOXIA HYPOXIA 1 M FU 9 m fu/[address] [place] [address] fu Shortness of breath dizziness KIANNA; LM 08/04 & 08/07 6 wk FU CP, PROB ACS CP, PROB ACS SOB S/P [facility] ER DYSPNEA Reason for Visit [...] Polyneuropathy Chief Complaint HR 130 today per [employer] Watch E-ORDER LEFT CAROTID BRUIT 3 M [...] per JR May 21, 2024 10:41am [employer] ROTARY PLANER SET UP OPERATOR TO READ May 28, 2024 7:06am 30 DAY MONITOR May 28, 2024 9:00am unable to tolerate cpap, new oxygen requ irement June 02, 2024 7:43pm B12 inject June 04, 2024 1:20 pm 8-10 WK F/U June 10, 2024 12: 44pm B12 inject July 06, 2024 1:22 pm B12 inject August 06, 2024 2:27pm EKG (ROTARY PLANER SET UP OPERATOR) August 12, 2024 11:03 am EORDERS August [...] per JR May 21, 2024 10:41am [employer] R[employer]ARY PLANER SET UP OPERATOR TO READ May 28, 2024 7:06am 30 DAY MONITOR May 28, 2024 9:00am unable to tolerate cpap, new oxygen requ irement June 02, 2024 7:43pm B12 inject June 04, 2024 1:20 pm 8-10 WK F/U June 10, 2024 12: 44pm B12 inject July 06, 2024 1:22 pm B12 inject August 06, 2024 2:27pm EKG (ROTARY PLANER SET UP OPERATOR) August 12, 2024 11:03 am EORDERS August [...] note per May 21, 2024 10:41am [employer] ROTARY PLANER SET UP OPERATOR TO READ May 28, 2024 7:06am 30 DAY MONITOR May 28, 2024 9:00am unable to tolerate cpap, new oxygen requ irement June 02, 2024 7:43pm B12 inject June 04, 2024 1:20 pm 8-10 WK F/U June 10, 2024 12: 44pm B12 inject July 06, 2024 1:22 pm B12 inject August 06, 2024 2:27pm EKG (ROTARY PLANER SET UP OPERATOR) August 12, 2024 11:03 am EORDERS August [...] per JR May 21, 2024 10:41am [employer] R[employer]ARY PLANER SET UP OPERATOR TO READ May 28, 2024 7:06am 30 DAY MONITOR May 28, 2024 9:00am unable to tolerate cpap, new oxygen requ irement June 02, 2024 7:43pm B12 inject June 04, 2024 1:20 pm 8-10 WK F/U June 10, 2024 12: 44pm B12 inject July 06, 2024 1:22 pm B12 inject August 06, 2024 2:27pm EKG (ROTARY PLANER SET UP OPERATOR) August 12, 2024 11:03 am EORDERS August [...] per JR May 21, 2024 10:41am [employer] R[employer]ARY PLANER SET UP OPERATOR TO READ May 28, 2024 7:06am 30 DAY MONITOR May 28, 2024 9:00am unable to tolerate cpap, new oxygen requ irement June 02, 2024 7:43pm B12 inject June 04, 2024 1:20 pm 8-10 WK F/U June 10, 2024 12: 44pm B12 inject July 06, 2024 1:22 pm B12 inject August 06, 2024 2:27pm EKG (ROTARY PLANER SET UP OPERATOR) August 12, 2024 11:03 am EORDERS August [...] B12 inject August 06, 2024 2:27pm EKG (ROTARY PLANER SET UP OPERATOR) August 12, 2024 11:03 am EORDERS August [...] Culp MD [address] [place] [address] Referral ID Status Reason Start Date Expiration Date V isits Requested Visits Authorized [id number] Pending Review 01/06/2024 01/05/2025 1 1 Specialty Diagnoses / Procedures Referred By Contac t Referred To Contact Diagnoses Cerebrovascular accident (CVA), unspecified mechanism (HCC) Harmeet Stallworth MD [address] [place] [address] Referral ID Status Reason Start Date Expiration Date Visits Re quested Visits Authorized [id number] Closed 1 1 Additional Source Comments (unrecognized sect ion and content) No Status Records FoundNo Status Records FoundNo Status Records FoundNo Status Records FoundNo Status Records FoundNo Status Records FoundNo Status Records FoundNo Status Records FoundNo Status Records Found INFORMATION SOURCE (unrecogn ized section and content) DATE CREATED AUTHOR 09/08/2018 [facility] ([place]) DATE CREATED AUTHOR AUTHOR'S ORGANIZ ATION 10/18/2023 [facility] DATE CREATED AUTHOR AUTHOR'S ORGANIZ ATION 06/13/2024 [facility] DATE CREATED AUTHOR AUTHOR'S ORGANIZ ATION 07/25/2024 [facility] DATE CREATED AUTHOR AUTHOR'S ORGANIZ ATION 07/26/2024 [facility] DATE CREATED AUTHOR AUTHOR'S ORGANIZ ATION 08/08/2024 [facility] DATE CREATED AUTHOR AUTHOR'S ORGANIZ ATION 09/18/2024 [facility] DATE CREATED AUTHOR AUTHOR'S ORGANIZ ATION 09/25/2024 [facility] DATE CREATED AUTHOR AUTHOR'S ORGANIZ ATION 09/26/2024 [facility] Source Comments (unrecognize d section and content) In the event this informatio n is protected by the Federal Confidentiality of Alcohol and Drug Abuse Patient Records regulations: The Federal rules restrict any use of the information to criminally investigate or prosecute any alcohol or drug abuse patient.[facility] Goals (unrecognized section and content) Goals [...] Provider, Referrin g Provider Active Oren Sky TREE KILLER, TREE KILLER-C Attending Provider Active Team Status: Active Member [...] Provider, Other Pr ovider Active Oren Sky TREE KILLER, TREE KILLER-C Attending Provider, Referring Pro vider Active Team [...] Referrin g Provider Active Fior Vallejo NP, TREE KILLER-C Attending Provider Active Team Status: Inactive Member [...] Lydia Segura PA, PA Active Oren Sky TREE KILLER, TREE KILLER-C Attending Provider Active Team Status: Active Member [...] MD Primary Care Provider Active Oren Sky TREE KILLER, TREE KILLER-C Attending Provider, Referring Pro vider Active Team Status: Inactive Member Role Status Dates Dr. Radha Khan MD Primary Care Provider, Referrin g Provider Active Dr. Ochoa Dobbs MD Attending Provider Active Paper Machine Operator Relationship Specialty Start Date End Date Radha Khan [address] [place] [address] PCP - General Family Medicine 10/03/23 Paper Machine Operator Relationship Specialty Start Date End Date Radha Khan [address] [place] [address] PCP - General Family Medicine 10/03/23 Paper Machine Operator Relationship Specialty Start Date End Date Radha Khan [address] [place] [address] PCP - General Family Medicine 10/03/23 Paper Machine Operator Relationship Specialty Start Date End Date Radha Khan [address] [place] [address] PCP - General Family Medicine 10/03/23 Paper Machine Operator Relationship Specialty Start Date End Date Radha Khan [address] [place] [address] PCP - General Family Medicine 10/03/23 Paper Machine Operator Relationship Specialty Start Date End Date Radha Khan [address] [place] [address] PCP - General Family Medicine 10/03/23 Paper Machine Operator Relationship Specialty Start Date End Date Radha Khan [address] [place] [address] PCP - General Family Medicine 10/03/23 Paper Machine Operator Relationship Specialty Start Date End Date Radha Khan [address] [place] [address] PCP - General Family Medicine 10/03/23 Suzy Jauregui MD [address] [facility] [address] [place] [address] [id number] Consulting Physician Vascular Surgery 04/24/24 Paper Machine Operator Relationship Specialty Start Date End Date Radha Khan [address] [place] [address] PCP - General Family Medicine 10/03/23 Suzy Jauregui MD [address] [place] [address] [address] [place] [address] [phone] Consulting Physician Vascular Surgery 04/24/24 Paper Machine Operator Relationship Specialty Start Date End Date Radha Khan [address] [place] [address] PCP - General Family Medicine 10/03/23 Suzy Jauregui MD [address] [place] [address] Consulting Physician Vascular Surgery 04/24/24 Paper Machine Operator Relationship Specialty Start Date End Date Radha Khan [address] [place] [address] PCP - General Family Medicine 10/03/23 Suzy Jauregui MD [address] [facility] [address] [place] [address] Consulting Physician Vascular Surgery 04/24/24 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 Thang Gacria DO Other Provider Active Start: April 15, [...] Edmund Dey MD Other Provider Active Start: [facility] 2024 End: April 25, 2024 Dr. 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 Radha Khan MD Primary Care Provider Active Start: June 02, 2024 End: June 02, 2024 JING PeañC Attending Provider Active Start: June 02, 2024 [...] carotid stenosis Procedures . Joe Rocha MD [address] [place] [address] [facility] [address] [place] [address] Referral ID Status Reason Start Date Expiration Date Visits Re quested Visits Authorized [id number] 1 1 Reason Comments New Patient New [...] BE BASED ON THE PRIMARY CLINICAL RECORDS. [employer] provides no warranty or guarantee of the accuracy or completeness of information in this document.
--- OUTSIDE RECORDS SUMMARY | 2024-09-26 21:02 | XMS RPT_ITS | CCD ---
Author Organization [facility] CliniSyme Care Team Providers Care Cylinder Press Operator Helper Name Role Phone Radha Khan Primary Care Provider [phone] Dr. Radha Khan Primary Care Provider Dr. Radha Khan Referring Provider PITO Gerardo Attending Provider Dr. Tia Boyd Attending Provider Dr. Radha Khan Other Provider Dr. Jonathon Salas Attending Provider Dr. Angel Avitia Emergency Provider [phone] Dr. Eleni Alfredo Admit Provider Dr. Eleni Alfredo Attending Provider Dr. lEeni Alfredo Other Provider Dr. Sumanth Hanna Attending [...] Provider Dr. Jonathon Salas Referring Provider Roof TEACHER OF THE HANDICAPPED, TEACHER OF THE HANDICAPPED-Surinder Jackson Attending Provider Dr. Radha Khan Primary Care Provider Dr. Radha Khan Referring Provider PITO Gerardo Attending Provider Roof TEACHER OF THE HANDICAPPED, TEACHER OF THE HANDICAPPED-Surinder Jackson Attending Provider [place] TEACHER OF THE HANDICAPPED, TEACHER OF THE HANDICAPPED-Surinder Childress Attending Provider Dr. Radha Khan Primary Care Provider Dr. Radha Khan Referring Provider PITO Gerardo Attending Provider Dr. Nely Hill Emergency Provider Dr. Cookie Bell Admit Provider Dr. Cookie Bell Other Provider Dr. Eduin Ospina Attending Provider Unavailable Dr. Eduin Ospina Other Provider Unavailable Dr. Burt Herrera Attending Provider Dr. Radha Khan Primary Care Provider Dr. Radha Khan Referring Provider Dr. Butr Herrera Referring Provider Dr. Francois Valiente Attending [...] Provider Dr. Karol Rushing Attending Provider Roof TEACHER OF THE HANDICAPPEDPITO Attending Provider Dr. Toni Vann Attending Provider [...] Provider Dr. Radha Khan Referring Provider Roof TEACHER OF THE HANDICAPPEDPITO Attending Provider Dr. Karol Rushing Attending Provider Dr. Toni Vann Attending Provider Dr. Karol Rushing Other Provider Sarika PA, PA-C Shanti Referring Provider Sarika PA, PA-C Shanti Other Provider Dr. Francois Valiente Attending Provider Dr. Francois Valiente Referring Provider [phone] PITO Gerardo Attending Provider Dr. Radha Khan Primary Care Provider Dr. Radha Khan Referring Provider [facility] PITO ANG Attending Provider Dr. Ochoa Dobbs Attending Provider BILL MCRAE, DR GARCIA Primary Care Physician Radha Khan Primary Care Provider CHITRA INFECTION CONTROL MANAGER-CONCRETE INSPECTOR, CHITO Nuñez Referring Unavailable GALINDO-GABRIELA INFECTION CONTROL MANAGER-CONCRETE INSPECTOR, CHITO Nuñez Attending Unavailable GALINDO-GABRIELA INFECTION CONTROL MANAGER-CONCRETE INSPECTOR, CHITO Nuñez Admitting Unavailable ERNESTO MCRAE, AMBER [...] Provider Aneta MCRAE, Dr. Bermudez Other Provider Paytno MCRAE, Dr. Taylor Other Provider Magdaleno MCRAE, Dr. Arnold Other Provider Robert MCRAE, Dr. Lopez Other Provider Javy MCRAE, Dr. Perdomo Other Provider Dr. Juan Diego Santoro MD Other Provider Jose MCRAE, Dr. Myles Other Provider Dr. Shobha Larios MD Other Provider Unavailabl adam Valentine MD, Dr. Amin Other Provider [phone] Gavi MCRAE, Dr. Gilliam Other Provider Sim [...] Radha Mcmahon Referring Provider [phone] Akin TEACHER OF THE HANDICAPPED-C, Coreen Attending Provider Bob TEACHER OF THE HANDICAPPED-C, Chen Nuñez Attending Provider Bill MCRAE, Dr. [...] Dr. Bethany Velasco DO Other Provider [phone] Loy MCRAE, Dr. Ayala Other Provider [phone] Yani MCRAE, Dr. Mondragon Other Provider [phone] Wm MCRAE, Dr. Acharya Other Provider Tejas MCRAE, Dr. Ruano Other Provider [phone] Dr. Julius Flores MD Other Provider Nitish MCRAE, Dr. Ibarra Other Provider [phone] Jennfier Toledo MD Other Provider Maria Elena MCRAE, Dr. Shepherd Other Provider Bharathi MCRAE, Dr. Cid Other Provider Serena MCRAE, Dr. Martinez Other Provider Aminata MCRAE, Dr. Indigo Knapp Other Provider Palmer MCRAE, Dr. Valderrama Other Provider Una MCRAE, Dr. Mccloud Other Provider [phone] Darci MCRAE, Dr. Gauthier Other Provider Esmer MCRAE, Dr. Guillen Other Provider Unavailable Osvaldo MCRAE, Ryan Other Provider Unavailable Dr. Ochoa Johnson DO Attending Provider Arabella MCRAE, Dr. Cookie Ho Attending Provider Soo MCRAE, Dr. Muñoz Attending Provider Soo MCRAE, Dr. Muñoz Referring Provider Jacques MCRAE, Dr. Julio Attending Provider Dilia MCRAE, Dr. Packer Attending Provider Tamika MCRAE, Dr. Veras Attending Provider Dr. iRto Lundberg MD Referring Provider Lydia Jiménez Attending [...] Bob ANG-CChen Referring Provider Soo MCRAE, Dr. Muñoz Attending Provider Dr. Toni Vann MD Referring Provider [phone] Sumanth Hanna MD Attending Provider Unavailable Brandt Winter MD Primary Care Provider Khadar Salguero Attending Provider Khadar Salguero Referring Provider [phone] Akin ANG-CCoreen Attending Provider [phone] Moy MCRAE, Brandt Referring Provider Jolliff, Radha S Primary Care Unavailable PrasanthSameer Attending Unavailable Sameer Rader Referring Unavailable Roof TEACHER OF THE HANDICAPPED, Oren H Attending Unavailable Roof TEACHER OF THE HANDICAPPED, Oren H Referring Unavailable Jolliff, Radha S Primary Care Unavailable Jolliff, Radha S Referring Unavailable Jolliff, Radha S Attending Unavailable Jolliff, Radha S Primary Care Unavailable Jolliff, Radha S Primary Care Unavailable Jolliff, Radha S Referring Unavailable Yoni TEACHER OF THE HANDICAPPED, Fior Attending Unavailable Fabiolaiff, Radha S Primary [...] Asya ANG, Oren Jackson Attending Unavailable Asya TEACHER OF THE HANDICAPPEDOren Referring Unavailable Jolliff, Radha S Primary Care Unavailable Yoni ANG, Fior Attending Unavailable Fior [place] NP Referring Unavailable Chen Rojas Attending Unavailable Chen Rojas Referring Unavailable Jolliff, Radha S Primary Care Unavailable Jolliff, Radha S Primary Care Unavailable Yoni TEACHER OF THE HANDICAPPED, Fior Attending Unavailable [place] TEACHER OF THE HANDICAPPED, Fior Referring Unavailable Jolliff, Radha S Primary [...] Jackson Attending Unavailable BaddourToni Referring Unavailable Roof TEACHER OF THE HANDICAPPEDOren Attending Unavailable Roof TEACHER OF THE HANDICAPPED, Oren Jackson Referring Unavailable Jolliff, Radha S [...] Attending Unavailable Moy, Chalon Primary Care Unavailable WatkinsvilleOchoa baum Attending Unavailable Jolliff, Radha S Referring [...] Consulting Unavailable Thang Garcia Consulting Unavailable Shameka Garcai Consulting Unavailable Rfaael Marc Consulting Unavailable Meme, Brennan Consulting Unavailable [...] Unavailable Jolliff, Radha S Referring Unavailable Asya TEACHER OF THE HANDICAPPED, Oren Jackson Attending Unavailable Jolliff, Radha S Referring Unavailable BaddourToni Attending Unavailable Jolliff, Radha S Primary Care Unavailable Jolliff, Radha S Primary Care Unavailable [place]le[place] TEACHER OF THE HANDICAPPED, Fior Referring Unavailable [place]le[place] TEACHER OF THE HANDICAPPED, Fior Attending Unavailable Jolliff, Radha S Referring [...] Consulting Unavailable Thang Garcia Consulting Unavailable Eric Bsoch Consulting Unavailable David Leonard Consulting Unavailable Jolliff, Radha S Primary Care Unavailable Jolliff, Radha S Referring Unavailable [place] TEACHER OF THE HANDICAPPED, Fior Attending Unavailable Jolliff, Radha S Referring Unavailable Coreen Gerardo Attending Unavailable Jolliff, Radha S Primary Care Unavailable Jolliff, Radha S Referring Unavailable Bethany Shelley Attending Unavailable Jolliff, Radha S Primary Care Unavailable Chen Rojas Attending Unavailable Jolliff, Radha S Referring Unavailable Jolliff, Radha S Primary Care Unavailable Eduin Ospina Attending Unavailable Jolliff, Radha S Primary Care Unavailable Fran Rodriguez Attending Unavailable [place] TEACHER OF THE HANDICAPPED, Fior Referring Unavailable Jolliff, Radha S Primary Care Unavailable Asya TEACHER OF THE HANDICAPPED, Oren H Attending Unavailable Jolliff, Radha S Primary Care Unavailable Asya TEACHER OF THE HANDICAPPEDOren Referring Unavailable Sumanth Hanna Attending Unavailable Edmund [...] Jolliff, Radha S Primary Care Unavailable Yoni TEACHER OF THE HANDICAPPED, Fior Referring Unavailable Yoni TEACHER OF THE HANDICAPPEDFior Attending Unavailable Armin Fermin Attending Unavailable Jolliff, [...] Care Unavailable Fran Rodriguez Attending Unavailable [place] TEACHER OF THE HANDICAPPED, Fior Consulting Unavailable [place] TEACHER OF THE HANDICAPPED, Fior Referring Unavailable Roof TEACHER OF THE HANDICAPPED, Oren H Referring Unavailable Jacques, [place] Attending Unavailable Jolliff, Radha S Primary Care Unavailable Roof TEACHER OF THE HANDICAPPED, Oren H Consulting Unavailable Jolliff, Radha S Primary Care Unavailable Jolliff, Radha S Referring Unavailable Friend, Ede Attending Unavailable Friend, Ede Consulting Unavailable Jolliff, Radha S Primary Care Unavailable Fran Rodriguez Attending Unavailable [place] TEACHER OF THE HANDICAPPED, Fior Consulting Unavailable [place] TEACHER OF THE HANDICAPPED, Fior Referring Unavailable Jolliff, Radha S Referring [...] Provider Dr. Xiao Berrios MD Admit Provider [phone] Xiao Berrios MD Attending Provider Allergies Allergy Classification Reported Allergen(s) Allergy Type Date of Onset Reaction(s) Facility DOPamine Antagonists (1 source) Metoclopramide; Translations: [metoclopramide] Drug Allergy [facility] (20 sources) Metoclopramide Drug Allergy 6 Shortness of Breath [facility] (20 sources) Metoclopramide; Translations: [METOCLOPRAMIDE] Drug Allergy 6 Anaphylaxis, Shortness of breath [facility] (1 source) Metoclopramide Drug Allergy 5 [facility] Repository Medications Current Medications Medication Drug [...] as needed for severe pain (7-10). Active [id number] 200 actuat albuterol 0.09 mg/actuat metered dose [...] 24 hrs Blood-Glucose Meter,Continuo us ([employer] G6 Treatment Manager) misc (20 sources) Start: 07-26-2020 Blood-Glucose Meter,Continuous ([employer]excom G6 Treatment Manager) misc Active 0 .ROUTE .MEDSUPPLY 1 July 26, 2020 12:36pm As directed Start: 07-26-2020 Blood-Glucose Meter,Continuous ([employer]excom G6 Treatment Manager) misc Active 0 .ROUTE .MEDSUPPLY July 25, 2020 11:00pm As directed Start: 07-26-2020 Blood-Glucose Meter,Continuous (Dexcom G6 Treatment Manager) misc Active 0 .ROUTE .MEDSUPPLY 1 July 26, 2020 12:00am As directed Blood-Glucose Sensor (Dexcom G6 Sensor) device (20 sources) Start: 02-25-2023 Blood-Glucose Sensor (Dexcom G6 Sensor) device Active 0 .ROUTE .MEDSUPPLY 1 February 25, 2023 12:46pm Diabetes mellitus 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 with hyperglycemia medical terminologist (current) use of insulin dm As [...] mellitus 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 with hyperglycemia correction (current) use of insulin As directed Start: [...] mellitus 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 with hyperglycemia correction (current) use of insulin As directed Start: [...] mellitus 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 with hyperglycemia medical terminologist (current) use of insulin As directed [...] 12:00am June 01, 2021 3:34pm As directed Blood-Glucose,Treatment Manager,Cont (Dexcom G6 Treatment Manager) misc (3 sources) Start: 07-26-2020 Blood-Glucose,Treatment Manager,Cont (Dexcom G6 Treatment Manager) misc Active 0 .ROUTE .MEDSUPPLY 1 0 July 26, 2020 12:00am dm As directed Start: 07-26-2020 Blood-Glucose, Treatment Manager,Cont (Dexcom G6 Treatment Manager) misc Active 0 .ROUTE .MEDSUPPLY 1 July [...] Microalbuminuria 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 with hyperglycemia medical terminologist (current) use of insulin Proteinuria, unspecified [...] every week ergocalciferol (Vitamin D2) 1.25 MG (86774 UT) capsule Take 1 capsule by mouth [...] Agonist Start: 02-14-2023 End: 05-06-2024 HYDROcodone-acetami nophen ([place]) 5-325 MG tablet Take 1 tablet by [...] mg PO DAILY March 13, 2024 12:25pm [facility] Start: 10-06-2023 End: 10-05-2023 take [...] 30, 2020 1:00am November 27, 2023 3:20pm [facility] Start: 11-03-2018 End: 03-30-2020 take [...] extended release oral tablet (20 sources) Uncompetitive O-mfmfrz-T-aspartate Receptor Antagonist, Sigma-1 Agonist Start: 04-24-2024 End: [...] mellitus 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 with hyperglycemia correction (current) use of insulin blood sugar Start: 02-02-2021 End: 10-08-2022 take 1 tablet by mouth twice daily Glimepiride (Amaryl) 4 mg tablet Discontinued 4 mg PO TWICE A DAY 180 March 12, 2022 9:12am October 08, 2022 2:23pm Diabetes mellitus 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 with hyperglycemia medical terminologist (current) use of insulin Start: 07-22-2020 [...] mellitus 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 with hyperglycemia medical terminologist (current) use of insulin Start: 08-15-2022 [...] aftercare (6 sources) Drug therapy finding; Translations: [correction (current) use of anticoagulants] 03-05-2024 Episodic Other aftercare (12 sources) Long-term current use of anticoagulant; Translations: [medical terminologist (current) use of anticoagulants] 11-24-2023 Episodic Other aftercare (1 source) correction (current) use of insulin; Translations: [medical terminologist (current) use of insulin] Onset: 5 Episodic [...] 05-30-2007 05-30-2007 Episodic Other aftercare (1 source) correction (current) use of anticoagulants; Translations: [correction (current) use of anticoagulants] Onset: 05-05-2024 Episodic [...] (Unsp spec) [#/Vol] 0.58 10*3/uL Low 0.83-4.51 [facility] Absolute neutrophil countOrd ered By: Angelchristian Avitia on 09-26-2024 Neutrophils (Bld) [#/Vol] 11.9 10*3/uL High 2.0-7.7 [facility] Activated partial thrombopla stin time (aPTT) in platelet poor plasma by coagulation aOrdered By: Angel Avitia on 09-26-2024 aPTT Coag (PPP) [Time] 20.8 s Low 24.1-36.2 [facility] Anion gap in Serum or Plasma Ordered By: Angelchristian Avitia on 09-26-2024 Anion gap [Moles/Vol] 15 mmol/L 5-[address] [facility] Automated lymphocyte count a s percentage of total leukocytesOrdered By: Angelchristian Avitia on 09-26-2024 Lymphocytes/100 WBC Auto (Unsp spec) 4.2 % Low 19-41 [facility] BUN/creatinine ratioOrdered By: [facility] on 09-26-2024 Urea nitrogen/Creatinine [Mass ratio] 24.6 mg/mg High 10-20 [facility] Basophil percentageOrdered B y: Angelchristian Avitia on 09-26-2024 Basophils/100 WBC (Bld) 0.4 % 0-1 [facility] Carbon dioxide, total [Moles /volume] in Central venous bloodOrdered By: Angel Avitia on 09-26-2024 CO2 [Moles/Vol] 22.9 mmol/L 21.0-32.0 [facility] Chloride assayOrdered By: Domonique Avitia on 09-26-2024 Chloride [Moles/Vol] 100 mmol/L 98-108 [facility] Eosinophil percentageOrdered By: Angel Avitia on 09-26-2024 Eosinophils/100 WBC (Bld) 0.6 % 0-5 [facility] Erythrocyte distribution wid th ratioOrdered By: Angelchristian Avitia on 09-26-2024 Erythrocyte distribution width (RBC) [Ratio] 17.9 % High 11.6-14.6 [facility] Erythrocyte distribution wid th standard deviationOrdered By: Angelchristian Avitia on 09-26-2024 Erythrocyte distribution width (RBC) [Ratio] 50.9 fl High 35.1-43.9 [facility] Glomerular filtration rate ( GFR) estimation/1.73 sq m using serum, plasma, or whole bOrdered By: Angel Avitia on 09-26-2024 GFR/1.73 sq M.predicted among non-blacks MDRD (S/P/Bld) [Vol rate/Area] 65 mL/min/{1.73_m2} >60 [facility] Comment on above: mL/min/1.73m2 CKD-EP I Creatinine Equation (2020) Hematocrit Auto (Bld) [Volum e fraction]Ordered By: Angel Avitia on 09-26-2024 Hematocrit (Bld) [Volume fraction] 30.0 % Low 40-54 [facility] Hemoglobin measurementOrdere d By: Angel Avitia on 09-26-2024 Hemoglobin (Bld) [Mass/Vol] 9.1 g/dL Low 13.0-16.5 [facility] Immature granulocytes/100 WB C Auto (Bld)Ordered By: Angel Avitia on 09-26-2024 Immature granulocytes/100 WBC (Bld) 0.800 % 0.0-0.9 [facility] Comment on above: IG% - Immature Granu locytes (promyelocytes, myelocytes and metamyelocytes) > 1% indicates that a LEFT SHIFT is Present. International normalized rat io (INR) calculationOrdered By: Angel Avitia on 09-26-2024 INR Coag (Bld) [Relative time] 1.0 {INR} [facility] MCV (mean corpuscular volume ) determinationOrdered By: Angelchristian Avitia on 09-26-2024 MCV (RBC) [Entitic vol] 79.2 fL Low 80-94 [facility] Mean corpuscular hemoglobin (MCH) determinationOrdered By: Angel Avitia on 09-26-2024 MCH (RBC) [Entitic mass] 24.0 pg Low 27.0-32.0 [facility] Mean corpuscular hemoglobin concentration (MCHC) determinationOrdered By: Angelchristian Caseo on 09-26-2024 MCHC (RBC) [Mass/Vol] 30.3 g/dL Low 32-[address] [facility] Mean platelet volume determi nationOrdered By: Angel Avitia on 09-26-2024 Platelet mean volume (Bld) [Entitic vol] 10.4 fL 6.2-12.0 [facility] Monocyte percentageOrdered B y: Angelchristian Avitia on 09-26-2024 Monocytes/100 WBC (Bld) 8.7 % 0-10 [facility] Neutrophil percentageOrdered By: Angel Avitia on 09-26-2024 Neutrophils/100 WBC (Bld) 85.3 % High 47-70 [facility] Nucleated red blood cell per centageOrdered By: Angelchristian Avitia on 09-26-2024 Nucleated RBC/100 WBC (Bld) [Ratio] 0 % 0-5 [facility] Platelet countOrdered By: Domonique christian Avitia on 09-26-2024 Platelets (Bld) [#/Vol] 237 10*3/uL 150-450 [facility] Potassium measurement (mass/ volume)Ordered By: Angelchristian Avitia on 09-26-2024 Potassium (Unsp spec) [Mass/Vol] 4.2 mmol/L 3.3-5.1 [facility] Comment on above: Hemolysis present, R esults could be affected. Prothrombin timeOrdered By: Angel Avitia on 09-26-2024 PT Coag (PPP) [Time] 13.1 s 11.7-14.9 [facility] RBC Auto (Bld) [#/Vol]Ordere d By: Angel Avitia on 09-26-2024 RBC (Bld) [#/Vol] 3.79 10*6/uL Low 4.6-6.2 [facility] Serum creatinine measurement (mass/volume)Ordered By: Angel Avitia on 09-26-2024 Creatinine [Mass/Vol] 1.26 mg/dL High 0.70-1.[address] [facility] Serum glucose measurement (m ass/volume)Ordered By: Angel Avitia on 09-26-2024 Glucose [Mass/Vol] 246 mg/dL High 70-99 [facility] Serum or plasma calcium grazyna urement (mass/volume)Ordered By: Angelchristian Avitia on 09-26-2024 Calcium [Mass/Vol] 9.0 mg/dL 7.6-11.0 [facility] Serum or plasma urea nitroge n measurement (mass/volume)Ordered By: Angel Avitia on 09-26-2024 Urea nitrogen [Mass/Vol] 31 mg/dL High 4-19 [facility] Sodium levelOrdered By: Angelchristian Avitia on 09-26-2024 Sodium [Moles/Vol] 138 mmol/L 133-145 [facility] Troponin T.cardiac [Mass/vol ume] in Serum or Plasma by High sensitivity methodOrdered By: Angel Avitia on 09-26-2024 Troponin T.cardiac High sensitivity method [Mass/Vol] 47 ng/L High <22 [facility] White blood cell (WBC) count Ordered By: Angel Avitia on 09-26-2024 WBC (Bld) [#/Vol] 14.0 10*3/uL High 4.4-11.0 [facility] ASPERGILLUS GALACTOMANNAN EI A (NON-BLOOD SPECIMEN)on 09-24-2024 Galactomannan Ag IA Qn 0.027 Normal <0.500 [facility] Comment on above: Result Comment: Inte rpretation: [...] Aspergillus Galactomannan EIA is a product of [employer] and is FDA approved for in vitro diagnostic use. Testing Performed at: Reading Room [address] [place] [address] Refractory Furnace Designer: José Harris, PhD [facility] ([facility]) CLIA # [id number] FLAG Interpretation: A = Abnormal, H = High, L = Low Performed By: #### A SPQN ####[facility] ([id number] [place] [address] BASIC METABOLIC PANEL WITH A NION GAPon 09-24-2024 Calcium [Mass/Vol] 8.7 mg/dL Normal 8.6-10.3 [facility] Comment on above: Order Comment: FASTI NG:YES FASTING: YES Performed By: #### 9 897, 175 #### [facility] [address], [address] [place] [address] Rn Integrated: Octavio Segovia MD Chloride [Moles/Vol] 102 mmol/L Normal 98-110 [facility] Comment on above: Order Comment: FASTI NG:YES FASTING: YES Performed By: #### 9 081, 175 #### [facility] [address], [address] [place] [address] Rn Integrated: Octavio Segovia MD CO2 [Moles/Vol] 20 mmol/L Normal 20-32 [facility] Comment on above: Order Comment: FASTI NG:YES FASTING: YES Performed By: #### 9 505, 175 #### [facility] [address], [address] [place] [address] Rn Integrated: Octavio Segovia MD Creatinine [Mass/Vol] 1.49 mg/dL High 0.70-1.[address] [facility] Comment on above: Order Comment: FASTI NG:YES FASTING: YES Performed By: #### 9 2497, 1759 #### [facility] [address], [address] [place] [address] Rn Integrated: Octavio Segovia MD ELECTROLYTE BALANCE 14 mmol/L (calc) Normal 7-17 [facility] Comment on above: Order Comment: FASTI NG:YES FASTING: YES Performed By: #### 9 2497, 175 #### [facility] [address], [address] [place] [address] Rn Integrated: Octavio Segovia MD GFR/1.73 sq M.predicted among non-blacks MDRD (S/P/Bld) [Vol rate/Area] 53 mL/min/{1.73_m2} Low > OR = 60 [facility] Comment on above: Order Comment: FASTI NG:YES FASTING: YES Performed By: #### 9 2497, 175 #### [facility] [address], [address] [place] [address] Rn Integrated: Octavio Segovia MD Glucose [Mass/Vol] 304 mg/dL High 65-99 [facility] Comment on above: Order Comment: FASTI NG:YES FASTING: YES Result Comment: Fasting reference interval For someone without known diabetes, a glucose value >125 mg/dL indicates that they may have diabetes and this should be confirmed with a follow-up test. Performed By: #### 9 2497, 1759 #### [facility] [address], [address] [place] [address] Rn Integrated: Octavio Segovia MD Potassium [Moles/Vol] 4.8 mmol/L Normal 3.5-5.[address] [facility] Comment on above: Order Comment: FASTI NG:YES FASTING: YES Performed By: #### 9 2497, 175 #### [facility] of [address], [address] [place] [address] Rn Integrated: Octavio Segovia MD Sodium [Moles/Vol] 136 mmol/L Normal 135-146 [facility] Comment on above: Order Comment: FASTI NG:YES FASTING: YES Performed By: #### 9 2498, 1759 #### [facility] [address], [address] [place] [address] Rn Integrated: Octavio Segovia MD Urea nitrogen [Mass/Vol] 36 mg/dL High 10-23 [facility] Comment on above: Order Comment: FASTI NG:YES FASTING: YES Performed By: #### 9 2498, 1759 #### [facility] [address], [address] [place] [address] Rn Integrated: Octavio Segovia MD Urea nitrogen/Creatinine [Mass ratio] 24 mg/mg High 09-20 [facility] Comment on above: Order Comment: FASTI NG:YES FASTING: YES Performed By: #### 9 2498, 1759 #### [facility] [address], [address] [place] [address] Rn Integrated: Octavio Segovia MD BRONCHOSCOPYon 09-24-2024 BRONCHOSCOPY Table formatting fro m the original result was not included. Images from the original result were not included. Bronchoscopy Operative Report [facility] Date of procedure: 09/24/24 Patient: Krunal [...] INDICATION: Obtain diagnosis BRONCHOSCOPIST: Dick Nguyen MD Finisher Operator: Maeve Pringle MD PROCEDURES PERFORMED: Flexible Bronchoscopy Cryo Transbronchial Biopsy using 1.7 cryoprobe 7 [place] Osmani renuka placement in RLL and RML BAL RML Events Procedure Events Event Event Time ENDO SCOPE IN TIME 09/24/2024 8:05 AM ENDO SCOPE OUT TIME 09/24/2024 8:40 AM POST-PROCEDURE DIAGNOSIS: Interstitial Lung Disease ANESTHESIA: GETA. See separate anesthesia provider documentation. This procedure was performed using standard monitoring procedures in [facility] Endoscopy Suite. Medications See Anesthesia Record. Details [...] bronchoscopy was performed via ETT. A 7 somali renuka was placed outside of the ETT [...] cryo transbronchial biopies and placement of 7 somali renuka. The procedure required more time than usual to perform. After diagnostic/therapeutic maneuvers, the airway was examined for evidence of bleeding. None was noted. The bronchoscope was removed from the patient's airway and the airway was handed back over to my colleagues from anesthesiology. SPECIMENS: ID Type Source Karly (more content not included)... [facility] Comment on above: Order Comment: [facility] hoscopy Scheduling Request Pre-bronchoscopy visit: Not needed with Dr Padron Please schedule procedure: After September 11, 2024 Cytology on-site: No Location: [facility] Performing physician: Dick Nguyen MD or interventional pulm (cryo ILD biopsies) Referring physician: Rosalino Padron MD, Radha Khan MD Indication: undifferentiated ILD Sedation / Anesthesia: GA Procedure: Airway exam, BAL, TBBx, Rigid, 7 somali renuka with rigid, if too hypoxic then 8.5/9 ETT with 5 somali renuka Time: Tier 2 Fluorscopy: Yes Imaging [...] 09/26/2024840 Result Status: Final result Resulting Lab: [facility] [address] [id number] CULTURE No growth aerobically and anaerobically STAIN (2+) Few Polymorphonuclear leukocytes No organisms seen Normal [facility] Comment on above: Performed By: #### 3 2355-0 #### MICHAEL Ho ([id number]) [facility] ([facility]) [id number] [place] [address] Bronchoscopy studyon 025 Addendum by Dick Davis am, MD on 09/24/2024 9:35 AM EDT Table formatting from the original result was not included. Images from the original result were not included. Bronchoscopy Operative Report [facility] Date of procedure: 09/24/24 Patient: Krunal [...] INDICATION: Obtain diagnosis BRONCHOSCOPIST: Dick Nguyen MD Finisher Operator: Maeve Pringle MD PROCEDURES PERFORMED: Flexible Bronchoscopy Cryo Transbronchial Biopsy using 1.7 cryoprobe 7 [place] Osmani renuka placement in RLL and RML BAL RML Events Procedure Events Event Event Time ENDO SCOPE IN TIME 09/24/2024 8:05 AM ENDO SCOPE OUT TIME 09/24/2024 8:40 AM POST-PROCEDURE DIAGNOSIS: Interstitial Lung Disease ANESTHESIA: GETA. See separate anesthesia provider documentation. This procedure was performed using standard monitoring procedures in [facility] Endoscopy Suite. Medications See Anesthesia Record. Details [...] bronchoscopy was performed via ETT. A 7 somali renuka was placed outside of the ETT [...] cryo transbronchial biopies and placement of 7 somali renuka. The procedure required more time than usual to perform. After diagnostic/therapeutic maneuvers, the airway (more content not included)... [facility] Work Phone: [facility] Work Phone: Radiology Study observation (narrative) [facility] Work Phone: CBC (H/H, RBC, INDICES, WBC, PLT)on 09-24-2024 Erythrocyte distribution width (RBC) [Ratio] 16.0 % High 11.0-15.0 [facility] Comment on above: Performed By: #### 9 7007, 5728 #### [facility] of [address], [address] [place], [place] [id number] Rn Integrated: Octavio Segovia MD Hematocrit (Bld) [Volume fraction] 33.0 % Low 38.5-50.0 [facility] Comment on above: Performed By: #### 9 492, 1750 #### [facility] [address], [address] [place], [place] [id number] Rn Integrated: Octavio Segovia MD Hemoglobin (Bld) [Mass/Vol] 9.4 g/dL Low 13.2-17.1 [facility] Comment on above: Performed By: #### 9 186, 6390 #### [facility] [address], [address] [place], [place] [address] Rn Integrated: Octavio Segovia MD MCH (RBC) [Entitic mass] 23.4 pg Low 27.0-33.0 [facility] Comment on above: Performed By: #### 9 2497, 1759 #### [facility] [place] [address] Rn Integrated: Octavio Segovia MD MCHC (RBC) [Mass/Vol] 28.5 [...] #### 9 2497, 1759 #### [facility] [place] [address] Rn Integrated: Octavio Segovia MD MCV (RBC) [Entitic vol] 82.1 fL Normal 80.0-100.0 [facility] Comment on above: Performed By: #### 9 2497, 1759 #### [facility] [place] [address] Rn Integrated: Octavio Segovia MD Platelet mean volume (Bld) [Entitic vol] 10.4 fL Normal 7.5-12.5 [facility] Comment on above: Performed By: #### 9 2497, 175 #### [facility] [place] [address] Rn Integrated: Octavio Segovia MD Platelets (Bld) [#/Vol] 259 10*3/uL Normal 140-400 [facility] Comment on above: Performed By: #### 9 2497, 175 #### [facility] [place] [address] Rn Integrated: Octavio Segovia MD RBC (Bld) [#/Vol] 4.02 10*6/uL Low 4.20-5.80 [facility] Comment on above: Performed By: #### 9 2497, 1759 #### [facility] [address], [address] [place] [address] Rn Integrated: Octavio Segovia MD WBC (Bld) [#/Vol] 12.8 10*3/uL High 3.8-10.8 [facility] Comment on above: Performed By: #### 9 2498, 1759 #### [facility] [address], [address] [place] [address] Rn Integrated: Octavio Segovia MD Cell count panel (Body fld)O rdered By: Johanna Prieto on 09-24-2024 Clarity (Body fld) Clear Clear [facility] Color (Body fld) Colorless Colorless, Straw, Yellow [facility] RBC Auto (Body fld) [#/Vol] /uL see comment /uL [facility] WBC (Body fld) [#/Vol] 0.022 10*3/uL See Comment [facility] Body Fluid cell coun t reference ranges have not been established by [facility]. Reference ranges provided are based on published references. This test was developed and its performance characteristics determined by [facility]. It has not been cleared or approved by the [place] Food and Drug Administration. [facility] Cell count panel (Body fld)o n 09-24-2024 Clarity (Body fld) Clear Normal Clear [facility] Comment on above: Order Comment: Body Fluid cell count reference ranges have not been established by [facility]. Reference ranges provided are based on published references. This test was developed and its performance characteristics determined by [facility]. It has not been cleared or approved by the [place] Food and Drug Administration. Performed By: #### 3 4556-1 #### MICHAEL Ho ([id number]) [facility] ([facility]) [address] [place] [address] Color (Body fld) Colorless Normal Colorless, Straw, Yellow [facility] Comment on above: Order Comment: Body Fluid cell count reference ranges have not been established by [facility]. Reference ranges provided are based on published references. This test was developed and its performance characteristics determined by [facility]. It has not been cleared or approved by the US Food and Drug Administration. Performed By: #### 3 4556-1 #### MICHAEL Ho ([id number]) [facility] ([facility]) [address] [place] [address] RBC Auto (Body fld) [#/Vol] <2000 Normal see comment [facility] Comment on above: Order Comment: Body Fluid cell count reference ranges have not been established by [facility]. Reference ranges provided are based on published references. This test was developed and its performance characteristics determined by [facility]. It has not been cleared or approved by the US Food and Drug Administration. Performed By: #### 3 4556-1 #### MICHAEL Ho ([id number]) [facility] ([facility]) [address] [place] [address] WBC (Body fld) [#/Vol] 0.022 10*3/uL Normal See Comment [facility] Comment on above: Order Comment: Body Fluid cell count reference ranges have not been established by [facility]. Reference ranges provided are based on published references. This test was developed and its performance characteristics determined by [facility]. It has not been cleared or approved by the US Food and Drug Administration. Performed By: #### 3 4556-1 #### MICHAEL Ho ([id number]) [facility] ([facility]) [address] [place] [address] Differential panel (Body fld )on 09-24-2024 Cells Counted Total (Body fld) [#] 100 [facility] Eosinophils/100 WBC Manual cnt (Body fld) 1 % see comment [facility] Comment on above: BAL Reference Range: <1% Lymphocytes/100 WBC Manual cnt (Body fld) 21 % see comment [facility] Comment on above: Synovial/Peritoneal/ Pericardial/Pleural Fluid Reference Range: <75% BAL Reference Range: <10% Monocytes+Macrophages/1 00 WBC Manual cnt (Body fld) 53 % see comment [facility] Comment on above: Synovial/Peritoneal/ Pericardial/Pleural Fluid Reference Range: <70% BAL Reference Range: 87-100% Neutrophils/100 WBC (Body fld) 25 % see comment [facility] Comment on above: Synovial/Peritoneal/ Pericardial/Pleural Fluid Reference Range: <25% BAL Reference Range: <2% Body Fluid cell differential reference ranges have not been established by [facility]. Reference ranges provided are based on published references. This test was developed and its performance characteristics determined by [facility]. It has not been cleared or approved by the [place] Food and Drug Administration. [facility] Cells Counted Total (Body fld) [#] 100 Normal [facility] Comment on above: Order Comment: Body Fluid cell differential reference ranges have not been established by [facility]. Reference ranges provided are based on published references. This test was developed and its performance characteristics determined by [facility]. It has not been cleared or approved by the US Food and Drug Administration. Performed By: #### 2 9580-8 #### MICHAEL Ho ([id number]) [facility] ([facility]) [id number] [place] [address] Eosinophils/100 WBC Manual cnt (Body fld) 1 % Normal see comment [facility] Comment on above: Order Comment: Body Fluid cell differential reference ranges have not been established by [facility]. Reference ranges provided are based on published references. This test was developed and its performance characteristics determined by [facility]. It has not been cleared or approved by the US Food and Drug Administration. Result Comment: BAL Reference Range: <1% Performed By: #### 2 9580-8 #### MICHAEL Ho ([id number]) [facility] ([facility]) [address] [place] [address] Lymphocytes/100 WBC Manual cnt (Body fld) 21 % Normal see comment [facility] Comment on above: Order Comment: Body Fluid cell differential reference ranges have not been established by [facility]. Reference ranges provided are based on published references. This test was developed and its performance characteristics determined by [facility]. It has not been cleared or approved by the US Food and Drug Administration. Result Comment: Syno vial/Peritoneal/Pericardial/Pleural Fluid Reference Range: <75% BAL Reference Range: <10% Performed By: #### 2 9580-8 #### MICHAEL Ho ([id number]) [facility] ([facility]) [address] [place] [address] Monocytes+Macrophages/1 00 WBC Manual cnt (Body fld) 53 % Normal see comment [facility] Comment on above: Order Comment: Body Fluid cell differential reference ranges have not been established by [facility]. Reference ranges provided are based on published references. This test was developed and its performance characteristics determined by [facility]. It has not been cleared or approved by the US Food and Drug Administration. Result Comment: Syno vial/Peritoneal/Pericardial/Pleural Fluid Reference Range: <70% BAL Reference Range: 87-100% Performed By: #### 2 9580-8 #### MICHAEL Ho ([id number]) [facility] ([facility]) [address] [place] [address] Neutrophils/100 WBC (Body fld) 25 % Normal see comment [facility] Comment on above: Order Comment: Body Fluid cell differential reference ranges have not been established by [facility]. Reference ranges provided are based on published references. This test was developed and its performance characteristics determined by [facility]. It has not been cleared or approved by the US Food and Drug Administration. Result Comment: Syno vial/Peritoneal/Pericardial/Pleural Fluid Reference Range: <25% BAL Reference Range: <2% Performed By: #### 2 9580-8 #### MICHAEL Ho ([id number]) [facility] ([facility]) [address] [place], [place] [address] Fungus identifiedon 09-25-19 Fungus identified Cx Nom (Unsp spec) Test: Fungal Culture/Smear Specimen Source: BRONCHO-ALVEOLAR LAVAGE OF RIGHT MIDDLE LOBE Specimen Type: Fluid Specimen Date: 09/24/2024838 Result Date: 09/25/20241114 Result Status: Preliminary result Resulting Lab: [facility] [address] [place], [place] [id number] CULTURE Culture in progress, a report will be issued when positive or after 2 weeks of incubation. STAIN No fungal elements seen Normal [facility] Comment on above: Performed By: #### 5 80-1 #### MICHAEL Ho ([id number]) [facility] ([facility]) [address] [place] [address] LEGIONELLA PCR PANELon 09-24 LEGIONELLA PNEUMO PCR, VIRC Not detected Normal Not Detected [facility] Comment on above: Result Comment: This test was developed and its performance characteristics determined by [facility]. It has not been cleared or approved by the [place] Food and Drug Administration. Results should be used in conjunction with clinical findings, and should not form the sole basis for a diagnosis or treatment decision. Testing Performed at: [facility] [address], [place] [address] Refractory Furnace Designer: José Harris, PhD BCLJenny (ABB) CLIA # [id number] FLAG Interpretation: A = Abnormal, H = High, L = Low Performed By: #### L EGPC ####[facility] ([id number])00728 [place] [address] NAVAS.LEGIONELLA PCR, VIRC Not detected Normal Not Detected [facility] Comment on above: Performed By: #### L EGPC ####[facility] ([id number])56345 [place] [address] Mycobacterium sp identifiedo n 09-24-2024 Mycobacterium sp identified Org specific cx Nom (Unsp spec) Test: AFB Culture/Smear Specimen Source: BRONCHO-ALVEOLAR LAVAGE OF RIGHT MIDDLE LOBE Specimen Type: Fluid Specimen Date: 09/24/2024838 Result Date: 09/25/2024858 Result Status: Preliminary result Resulting Lab: [facility] [address] [place] [address] CULTURE Culture in progress and will be examined weekly. A result will be issued either when positive or after 8 weeks incubation. STAIN No acid fast bacilli seen [facility] Comment on above: Performed By: #### 5 43-9 #### MICHAEL Ho ([id number]) [facility] ([facility]) [address] [place], [place] [id number] Non-sociocultural anthropology professor cytology studyon Non-gynecological cytology method study Pathology report.total SEE COMMENT Non-gynecologic Cytology Case: [id number] Authorizing Provider: Dick Nguyen MD Collected: 09/24/2024 0837 Ordering Location: [facility] Received: 09/24/2024 1637 Center Pathologist: Lyudmila [...] Slide(s) initially screened by EDER Marquez at [facility] [address] [place] [phone] By the signature on this report, the [...] A1-2 GMS PCP A1-[address] [facility] Pathologist review Cedrick (Unsp spec) [Interp]on 09-24-2024 PATH REVIEW-CELL CT,FLUID Predominantly macrophages with some foamy and hemosiderin-laden forms. Normal [facility] Comment on above: Result Comment: Elec tronically signed out by Cat Gunter MD on 09/25/24 at 10:24 AM. By the signature on this report, the individual or group listed as making the Final Interpretation/Diagnosis certifies that they have reviewed this case. Performed By: #### 5 9465-5 #### MICHAEL Ho ([id number]) [facility] ([facility]) [address] [place], [place] [id number] Surgical pathology studyon 0 09-24-2024 Surgical pathology study Pathology report.total SEE COMMENT Surgical Pathology Case: [id number] Authorizing Provider: Dick Nguyen MD Collected: 09/24/2024 0817 Ordering Location: [facility] Received: 09/24/2024 1142 Center Pathologist: Sanchez [...] submitted in toto in one cassette. B [facility] XR CHEST 1 VIEWon 09-24-2024 XR CHEST 1 VIEW Interpreted By: Matthias Bunch and Mercado Amiel STUDY: XR CHEST 1 VIEW; 09/24/2024 9:32 am INDICATION: Signs/Symptoms:after bronchoscopy. COMPARISON: CT CHEST HIGH RESOLUTION 07/20/2024 ACCESSION NUMBER(S): [id number] ORDERING CLINICIAN: DICK NGUYEN FINDINGS: AP radiograph [...] Matthias Bunch 09/24/2024 10:10 AM Dictation workstation: [id number] [facility] XR Chest Single viewon 09-24 1. Diffuse bilateral hazy reticulonodular opacities with relatively increased size of right lateral lower lung field, which likely represents infiltrate/consolidation with superimposed interstitial lung findings previously described on CT. I have reviewed the images/study and I agree with the findings as stated by Dr. Aguila Gonzales. Signed by: Matthias Bunch 09/24/2024 10:10 AM Dictation workstation: [id number] Interpreted By: Matthias Bunch and Mercado Amiel STUDY: XR CHEST 1 VIEW; 09/24/2024 9:32 am INDICATION: Signs/Symptoms:after bronchoscopy. COMPARISON: CT CHEST HIGH RESOLUTION 07/20/2024 ACCESSION NUMBER(S): [id number] ORDERING CLINICIAN: DICK NGUYEN FINDINGS: AP radiograph [...] CT CHEST HIGH RESOLUTION 07/20/2024 ACCESSION NUMBER(S): [id number] ORDERING CLINICIAN: DICK NGUYEN FINDINGS: AP radiograph [...] Matthias Bunch 09/24/2024 10:10 AM Dictation workstation: [id number] [facility] Work Phone: Radiology Study observation (narrative) [facility] Work Phone: XR Chest Single viewOrdered By: Matthias Bucnh on 09-24-2024 [facility] Work Phone: Endocrinology Visit Reporton 09-16-2024 Endocrinology Visit Report Normal [facility] - Hematology and Cell countsOrdered By: Coreen Gerardo on 09-16-2024 HbA1c (Bld) [Mass fraction] 8.4 % High 4.2-6.3 [facility] Office Visit Reporton 2024 Office Visit Report Normal [facility] Neurology Visit Reporton Neurology Visit Report Normal [facility] Anion gap in Serum or Plasma Ordered By: Khadar Valencia on 08-12-2024 Anion gap [Moles/Vol] 14 mmol/L - [facility] BUN/creatinine ratioOrdered By: Khadar Valencia on 08-12-2024 Urea nitrogen/Creatinine [Mass ratio] 30.2 mg/mg High - [facility] Basic Metabolic Profile (BMP )on 08-12-2024 BUN/CRE 30.2 RATIO High 01-18 [facility] Comment on above: Performed By: #### L 503.6186, L500.2500 ####[facility] [address] [place], [address] Calcium [Mass/Vol] 9.6 mg/dL Normal 7.6-11.0 [facility] Comment on above: Performed By: #### L 503.7505, L500.2500 ####[facility] [address] [place], [address] Chloride [Moles/Vol] 98 mmol/L Normal 98-108 [facility] Comment on above: Performed By: #### L 503.7505, L500.2500 ####[facility] [address] [place], [address] CO2 [Moles/Vol] 25.1 mmol/L Normal 21.0-32.0 [facility] Comment on above: Performed By: #### L 503.7505, L500.2500 ####[facility] [address] [place], [address] Creatinine [Mass/Vol] 1.31 mg/dL High 0.70-1.[address] [facility] Comment on above: Performed By: #### L 503.7505, L500.2500 ####[facility] [address] [place], [address] GAP 14 Normal 5-15 [facility] Comment on above: Performed By: #### L 503.7505, L500.2500 ####[facility] [address] [place], [address] GFR/1.73 sq M.predicted among non-blacks MDRD (S/P/Bld) [Vol rate/Area] 62 mL/min/{1.73_m2} Normal >60 [facility] Comment on above: Result Comment: mL/m in/1.73m2 CKD-EPI Creatinine Equation (2020) Performed By: #### L 503.7505, L500.2500 ####[facility] [address] [place], [address] Glucose [Mass/Vol] 104 mg/dL High 70-99 [facility] Comment on above: Performed By: #### L 503.7505, L500.2500 ####[facility] [address] [place], [address] Potassium [Moles/Vol] 4.4 mmol/L Normal 3.3-5.[address] [facility] Comment on above: Performed By: #### L 503.7505, L500.2500 ####[facility] [address] [place], [address] Sodium [Moles/Vol] 137 mmol/L Normal 133-145 [facility] Comment on above: Performed By: #### L 503.7505, L500.2500 ####[facility] [address] [place], [address] Urea nitrogen [Mass/Vol] 40 mg/dL High 4-19 [facility] Comment on above: Performed By: #### L 503.7505, L500.2500 ####[facility] [address] [place], [address] Carbon dioxide, total [Moles /volume] in Central venous bloodOrdered By: Khadar Valencia on 08-12-2024 CO2 [Moles/Vol] 25.1 mmol/L 21.0-32.0 [facility] Chest PA and Lateralon 08-12 Chest PA and Lateral Normal [facility] Chloride assayOrdered By: James Valencia on 08-12-2024 Chloride [Moles/Vol] 98 mmol/L 98-108 [facility] Glomerular filtration rate ( GFR) estimation/1.73 sq m using serum, plasma, or whole bOrdered By: Khadar Valencia on 08-12-2024 GFR/1.73 sq M.predicted among non-blacks MDRD (S/P/Bld) [Vol rate/Area] 62 mL/min/{1.73_m2} >60 [facility] Comment on above: mL/min/1.73m2 CKD-EP I Creatinine Equation (2020) L503.7505on 08-12-2024 Natriuretic peptide B (Bld) [Mass/Vol] 626 pg/mL Normal <=900 [facility] Comment on above: Result Comment: Hear t Failure Unlikely: < 300 pg/mLHeart Failure Likely< 50 Years: > 450 pg/mL50-75 Years: > 900 pg/mL>75 Years: > 1800 pg/mL Performed By: #### L 503.7505, L500.2500 ####[facility] [address] [place], [address] Natriuretic peptide.B prohor renea N-Terminal [Mass/volume] in Serum or PlasmaOrdered By: Khadar Valencia on 08-12-2024 Natriuretic peptide.B prohormone N-Terminal [Mass/Vol] 626 pg/mL <900 [facility] Comment on above: Heart Failure Unlike ly: < 300 pg/mLHeart Failure Likely< 50 Years: > 450 pg/mL50-75 Years: > 900 pg/mL>75 Years: > 1800 pg/mL Potassium measurement (mass/ volume)Ordered By: Khadar Valencia on 08-12-2024 Potassium (Unsp spec) [Mass/Vol] 4.4 mmol/L 3.3-5.1 [facility] Serum creatinine measurement (mass/volume)Ordered By: Khadar Valencia on 08-12-2024 Creatinine [Mass/Vol] 1.31 mg/dL High 0.70-1.[address] [facility] Serum glucose measurement (m ass/volume)Ordered By: Khadar Valencia on 08-12-2024 Glucose [Mass/Vol] 104 mg/dL High 70-99 [facility] Serum or plasma calcium grazyna urement (mass/volume)Ordered By: Khadar Valencia on 08-12-2024 Calcium [Mass/Vol] 9.6 mg/dL 7.6-11.0 [facility] Serum or plasma urea nitroge n measurement (mass/volume)Ordered By: Khadar Valencia on 08-12-2024 Urea nitrogen [Mass/Vol] 40 mg/dL High 4-19 [facility] Sodium levelOrdered By: Junior king Demiter on 08-12-2024 Sodium [Moles/Vol] 137 mmol/L 133-145 [facility] Office Visit Reporton 2024 Office Visit Report Normal [facility] ALDOLASEon 08-02-2024 ALDOLASE 4.6 U/L Normal < OR = 8.1 [facility] Comment on above: Performed By: #### 9 3918, 1759 #### [facility] [address], [address] [place] [address] Rn Integrated: Octavio Segovia MD RICARDO CASCADE(RICARDO,IFA W/RFL AN [...] AC-0: Negative International Consensus on RICARDO Patterns (https://doi.org/10.1515/bhjp-2258-0841) For additional information, please refer to http://education.FraudMetrix.Codenvy/faq/SBV318 (This link is being provided for informational/ educational purposes only.) Performed By: #### 9 3511, 1759 #### [facility] [address], [address] [place] [address] Rn Integrated: Octavio Segovia MD ANCA SCREEN WITH MPO [...] other disorders. Performed By: #### 2 27, 3888, 4420, 67558, 809, 29321, 374 #### [facility] [place] [address] [facility], [address] [place] [address] Rn Integrated: Octavio Segovia MD #### 18643, 20429 #### [facility], [address] [place] [address] Rn Integrated: Alejandra Queen MD,PhD,FADIA #### 25515 #### [facility] [address] [facility] [place], [place] Rn Integrated: Waldemar Billy M.D.,PhD MYELOPEROXIDASE ANTIBODY <1.0 Normal <1.0 [facility] Comment on above: Result [...] Performed By: #### 2 27, 4418, 4420, 38618, 809, 65359, 374 #### [facility] [address], [address] [place] [address] Rn Integrated: Octavio Segovia MD #### 51196, 80987 #### [facility], [address] [place] [address] Rn Integrated: Alejandra Queen MD,PhD,FADIA #### 58938 #### [facility] [address] [facility] [place] Rn Integrated: Waldemar Billy M.D.,PhD PROTEINASE-3 ANTIBODY <1.0 Normal <1.0 [facility] Comment on above: Result Comment: Value Interpretation <1.0 AI: No Antibody Detected >or=1.0 AI: Antibody Detected Autoantibodies to proteinase-3 (MI-3) are accepted as characteristic for granulomatosis with polyangiitis (GPA, Kaylen's), and are detectable in 95% of the histologically proven cases. The cytoplasmic IFA pattern, (c-ANCA), is based largely on autoantibody to MI-3 which serves as the primary antigen. These autoantibodies are present in active disease. Performed By: #### 2 27, 4418, 4420, 49346, 809, 27624, 374 #### [facility] [address], [address] [place] [address] Rn Integrated: Octavio Segovia MD #### 45272, 33832 #### [facility], [address] [place], [place] Rn Integrated: Alejandra Queen MD,PhD,FADIA #### 39339 #### [facility]/[address] [place], [place] Rn Integrated: Waldemar Billy M.D.,PhD C-REACTIVE PROTEINon 025 CRP [Mass/Vol] 10.6 mg/L High <8.0 [facility] Comment on above: Performed By: #### 2 27, 4418, 4420, 87138, 809, 90028, 374 #### [facility] [address], [address] [place] [address] Rn Integrated: Octavio Segovia MD #### 39765, 83983 #### [facility], [address] [place] [address] Rn Integrated: Alejandra Queen MD,PhD,FADIA #### 87126 #### [facility]/[place] [address] [facility] [address] [place] Rn Integrated: Waldemar Billy M.D.,PhD CREATINE KINASE, TOTALon CREATINE KINASE, TOTAL 46 U/L Normal 22-308 [facility] Comment on above: Performed By: #### 2 27, 4418, 4420, 40276, 809, 11977, 374 #### [facility] [address] [facility], [address] [place] [address] Rn Integrated: Octavio Segovia MD #### 22896, 79750 #### [facility], [address] [place] [address] Rn Integrated: Alejandra Queen MD,PhD,FADIA #### 10866 #### [facility]/[place] [address] [facility] [address] [place] Rn Integrated: Waldemar Billy M.D.,PhD CYCLIC CITRULLINATED PEPTIDE (CCP) AB (IGG)on 08-02-2024 CYCLIC CITRULLINATED PEPTIDE (CCP) AB (IGG) <16 Normal [facility] Comment on above: Result Comment: Refe rence Range Negative: <20 Weak Positive: 20-39 Moderate Positive: 40-59 Strong Positive: >59 Performed By: #### 2 27, 4418, 4420, 24571, 809, 82601, 374 #### [facility] [address] [facility], [address] [place] [address] Rn Integrated: Octavio Segovia MD #### 82501, 29690 #### [facility], [address] [place] [address] Rn Integrated: Alejandra Queen MD,PhD,FADIA #### 77292 #### [facility] [address] [place] Rn Integrated: Waldemar Billy M.D.,PhD EXTENDED MYOSITIS SPECIFIC A [...] analytical performance characteristics have been determined by [employer]. It has not been cleared or approved by the FDA. This assay has been validated pursuant to the CLIA regulations and is used for clinical purposes. Performed By: #### 2 , 3978, 4420, 87788, 809, 89186, 374 #### [employer] [address] [address] Rn Integrated: Octavio Segovia MD #### 41956, 30425 #### [facility]/[place] [address] [place] [address] Rn Integrated: Alejandra Queen MD,PhD,FADIA #### [id number] #### [facility] [address] [facility] [place] [address] Rn Integrated: Waldemar Billy M.D.,PhD EJ AB <11 Normal <11 [facility] Comment on above: Order Comment: FASTI NG:NO FASTING: NO Performed By: #### 2 27, 4418, 4420, 78450, 809, 14755, 374 #### [facility] [address] [place] [address] Rn Integrated: Octavio Segovia MD #### 99676, 41917 #### [facility]/[address] [address] Rn Integrated: Alejandra Queen MD,PhD,FADIA #### 93199 #### [facility]/[address] [place] Rn Integrated: Waldemar Billy M.D.,PhD HMGCR AB (IGG) <2 Normal <20 [facility] Comment on above: Order Comment: FASTI NG:NO FASTING: NO Result Comment: 2-Adrfjoo-4-Methylglutaryl-Coenzyme A Reductase (HMGCR) Ab is associated with necrotizing myopathy and is often found with the use of statin medications. Rarely, HMGCR Ab associated myositis has also been seen in patients ingesting mushrooms and other foods. Performed By: #### 2 27, 4418, 4420, 95332, 809, 12888, 374 #### [facility] [address], [address] [place] [address] Rn Integrated: Octavio Segovia MD #### 04018, 20709 #### [facility]/[address] Rn Integrated: Alejandra Queen MD,PhD,FADIA #### 35201 #### [facility] [address] [facility] [place] Rn Integrated: Waldemar Billy M.D.,PhD SAMANTHA-1 AB <11 Normal <11 [facility] Comment on above: Order Comment: FASTI NG:NO FASTING: NO Performed By: #### 2 27, 4418, 4420, 38665, 809, 09642, 374 #### [facility] [address], [address] [place] [address] Rn Integrated: Octavio Segovia MD #### 53982, 82212 #### [facility], [address] [facility] [place] Rn Integrated: Alejandra Queen MD,PhD,FADIA #### 28433 #### [facility]/[address] [place] Rn Integrated: Waldemar Billy M.D.,PhD MDA5 AB <11 Normal <11 [facility] Comment on above: Order Comment: FASTI NG:NO FASTING: NO Performed By: #### 2 27, 4418, 4420, 29478, 809, 85288, 374 #### [facility] [address], [address] [place] [address] Rn Integrated: Octavio Segovia MD #### 45569, 27788 #### [facility], [address] [place] Rn Integrated: Alejandra Queen MD,PhD,FADIA #### 55309 #### [facility]/[address] [place] Rn Integrated: Waldemar Billy M.D.,PhD SC-2 ALPHA AB <11 Normal <11 [facility] Comment on above: Order Comment: FASTI NG:NO FASTING: NO Performed By: #### 2 27, 4418, 4420, 68182, 809, 88752, 374 #### [facility] [address], [address] [place] [address] Rn Integrated: Octavio Segovia MD #### 40322, 41457 #### [facility], [address] [place] Rn Integrated: Alejandra Queen MD,PhD,FADIA #### 43292 #### [facility]/[address] [place] Rn Integrated: Waldemar Billy M.D.,PhD SC-2 BETA AB <11 Normal <11 [facility] Comment on above: Order Comment: FASTI NG:NO FASTING: NO Performed By: #### 2 27, 4418, 4420, 73727, 809, 57012, 374 #### [facility] [address] [facility], 4 [place] [address] Rn Integrated: Octavio Segovia MD #### 68462, 41180 #### [facility], [address] [place] [address] Rn Integrated: Alejandra Queen MD,PhD,FADIA #### 05017 #### [facility] [address] [facility] [place] Rn Integrated: Waldemar Billy M.D.,PhD NXP-2 AB <11 Normal [...] with a rash. Additionally, MSAs to MDA5 ([id number]) have been identified in patients with clinically [...] analytical performance characteristics have been determined by [employer]. It has not been cleared or approved by the FDA. This assay has been validated pursuant to the CLIA regulations and is used for clinical purposes. Performed By: #### 2 27, 4418, 4420, 09888, 809, 90784, 374 #### [facility] [address], [address] [place] [address] Rn Integrated: Octavio Segovia MD #### 27489, 02551 #### [facility], [address] [place] [address] Rn Integrated: Alejandra Queen MD,PhD,FADIA #### 83610 #### [facility]/[place] [address] [facility] [place] Rn Integrated: Waldemar Billy M.D.,PhD AB <11 Normal <11 [facility] Comment on above: Order Comment: FASTI NG:NO FASTING: NO Performed By: #### 2 27, 4418, 4420, 83212, 809, 74409, 374 #### [facility] [place] [address] Rn Integrated: Octavio Segovia MD #### 45547, 84418 #### [facility], [address] [place] [address] Rn Integrated: Alejandra Queen MD,PhD,FADIA #### 43556 #### [facility]/[place] [address] [facility] [place] Rn Integrated: Waldemar Billy M.D.,PhD -12 AB <11 Normal <11 [facility] Comment on above: Order Comment: FASTI NG:NO FASTING: NO Performed By: #### 2 27, 4418, 4420, 86242, 809, 35698, 374 #### [facility] [address] [place], [place] [address] Rn Integrated: Octavio Segovia MD #### 22498, 80607 #### [facility], [address] [facility] [place] Rn Integrated: Alejandra Queen MD,PhD,FADIA #### 89422 #### [facility]/[address] [place] Rn Integrated: Waldemar Billy M.D.,PhD PL-7 AB <11 Normal <11 [facility] Comment on above: Order Comment: FASTI NG:NO FASTING: NO Performed By: #### 2 27, 4418, 4420, 13223, 809, 89188, 374 #### [facility] of [place] [address] [address] , [address] [place], [place] [address] Rn Integrated: Octavio Segovia MD #### 01590, 26977 #### [facility] [address] [place] Rn Integrated: Alejandra Queen MD,PhD,FADIA #### 36936 #### [facility]/[address] [place] Rn Integrated: Waldemar Billy M.D.,PhD [facility] AB <11 Normal <11 [facility] Comment on above: Order Comment: FASTI NG:NO FASTING: NO Performed By: #### 2 27, 4418, 4420, 50154, 809, 62442, 374 #### [facility] of [place] [address] [address] , [address] [place] [address] Rn Integrated: Octavio Segovia MD #### 20594, 18286 #### [facility], [address] [facility] [place] Rn Integrated: Alejandra Queen MD,PhD,FADIA #### 26518 #### [facility]/[place] [address] [facility] [address] [place] Rn Integrated: Waldemar Billy M.D.,PhD TIF1 GAMMA AB <11 Normal <11 [facility] Comment on above: Order Comment: FASTI NG:NO FASTING: NO Performed By: #### 2 27, 4418, 4420, 05784, 809, 39220, 374 #### [facility] [place] [address], [address] [place] [address] Rn Integrated: Octavio Segovia MD #### 44406, 78584 #### [facility], [address] [place], [place] Rn Integrated: Alejandra Queen MD,PhD,FADIA #### 10447 #### [facility]/[place] [address] [facility] [place] Rn Integrated: Waldemar Billy M.D.,PhD HYPERSENSITIVITY PNEUMONITIS SCREENon 08-02-2024 ASPERGILLUS FUMIGATUS Negative Normal NEGATIVE Que [facility] Comment on above: Performed By: #### 2 27, 4418, 4420, 01132, 809, 54699, 374 #### [facility] [address], [address] [place] [address] Rn Integrated: Octavio Segovia MD #### 83056, 45586 #### [facility], [address] [place], [place] Rn Integrated: Alejandra Queen MD,PhD,FADIA #### 78941 #### [facility] [address] [place] Rn Integrated: Waldemar Billy M.D.,PhD MICROPOLYSPORA FAENI Negative Normal NEGATIVE Ques t [facility] Comment on above: Performed By: #### 2 27, 4418, 4420, 20351, 809, 06154, 374 #### [facility] of [address] , [address] [place] [address] Rn Integrated: Octavio Segovia MD #### 21807, 82402 #### [facility], [address] [facility], [place] [address] Rn Integrated: Alejandra Queen MD,PhD,FADIA #### 82773 #### [facility]/[address] [place] Rn Integrated: Waldemar Billy M.D.,PhD PIGEON SERUM Negative Normal NEGATIVE [facility] Comment on above: Performed By: #### 2 27, 4418, 4420, 26039, 809, 40332, 374 #### [facility] [address], [address] [place] [address] Rn Integrated: Octavio Segovia MD #### 65047, 73026 #### [facility], [address] [facility], [place] [address] Rn Integrated: Alejandra Queen MD,PhD,FADIA #### 08819 #### [facility]/[address] [place] Rn Integrated: Waldemar Billy M.D.,PhD S. VIRIDIS Negative Normal NEGATIVE [facility] Comment on above: Result Comment: This test was developed and its analytical performance characteristics have been determined by [employer]. It has not been cleared or approved by the FDA. This assay has been validated pursuant to the CLIA regulations and is used for clinical purposes. Performed By: #### 2 27, 4418, 4420, 86200, 809, 51129, 374 #### [facility] of [place] [address] [address] , [address] [place] [address] Rn Integrated: Octavio Segovia MD #### 94321, 62110 #### [facility], [address] [place], [place] Rn Integrated: Alejandra Queen MD,PhD,FADIA #### 88577 #### [facility]/[address] [place] Rn Integrated: Waldemar Billy M.D.,PhD T. CANDIDUS Negative Normal NEGATIVE [facility] Comment on above: Performed By: #### 2 27, 4418, 4420, 17088, 809, 85136, 374 #### [facility] of [facility] [address], [address] [place] [address] Rn Integrated: Octavio Segovia MD #### 76960, 55163 #### [facility], [address] [place] [address] Rn Integrated: Alejandra Queen MD,PhD,FADIA #### 36713 #### [facility]/[address] [place] Rn Integrated: Waldemar Billy M.D.,PhD T. VULGARIS Negative Normal NEGATIVE [facility] Comment on above: Performed By: #### 2 27, 4418, 4420, 89157, 809, 81142, 374 #### [facility] [address], [address] [place] [address] Rn Integrated: Octavio Segovia MD #### 81971, 90057 #### [facility], [address] [place] Rn Integrated: Alejandra uQeen MD,PhD,FADIA #### 05078 #### [facility]/[address] [place] Rn Integrated: Waldemar Billy M.D.,PhD RHEUMATOID FACTORon 08-03-19 25 RHEUMATOID FACTOR 41 IU/mL High <14 [facility] Comment on above: Performed By: #### 2 27, 4418, 4420, 36175, 809, 59639, 374 #### [facility] [address], [address] [place] [address] Rn Integrated: Octavio Segovia MD #### 32858, 22454 #### [facility], [address] [place] [address] Rn Integrated: Alejandra Queen MD,PhD,FADIA #### 58903 #### [facility]/[place] [address] [facility] [place] Rn Integrated: Waldemar Billy M.D.,PhD SED RATE BY MODIFIED WESTERG RENon 08-02-2024 SED RATE BY MODIFIED WESTERGREN 36 mm/h High < OR = 20 [facility] Comment on above: Performed By: #### 2 27, 4418, 4420, 46269, 809, 47344, 374 #### [facility] [address], [address] [place] [address] Rn Integrated: Octavio Segovia MD #### 30987, 44296 #### [facility], [address] [place], [place] Rn Integrated: Alejandra Queen MD,PhD,FADIA #### 50287 #### [facility] [place] Rn Integrated: Waldemar Billy M.D.,PhD TRANSTHORACIC ECHO (TTE) [facility] PLETE 07-23-2024 TRANSTHORACIC ECHO (TTE) COMPLETE [facility] [address] [facility], [address], [place] [address] TRANSTHORACIC ECHOCARDIOGRAM REPORT Patient Name: KRUNAL LEOS Reading Physician: [id number] David Nguyễn MD Study Date: 07/23/2024 Ordering Provider: [id number] PADRON MRN/PID: [id number] Fellow: Nurse: Date of /Age: 5 1965 Entry Level Buyer: Ena hernandez RDCS Gender assigned at M Additional Staff: : Height: 175.26 cm Admit Date: Weight: 141.07 kg Admission Status: Outpatient BSA / BMI: 2.49 m2 / 45.93 kg/m2 Blood Pressure: 157/78 mmHg Department Location: [facility] Study Type: TRANSTHORACIC ECHO (TTE) COMPLETE Diagnosis/ICD: Pulmonary hypertension, unspecified-I27.20 Indication: Pulmonary hypertension CPT Code: Echo Complete w Full Doppler-19052 Study Detail: The following Echo studies were [...] VEINS: PulmV A Revs Dur: 121.00 msec [id number] David Nguyễn MD Electronically signed on 07/24/2024 at 9:17:53 AM Final [facility] CT CHEST HIGH RESOLUTIONon 0 07-20-2024 CT CHEST HIGH RESOLUTION Interpreted By: Rosita Bolaños, STUDY: CT CHEST HIGH RESOLUTION; 07/20/2024 12:56 pm INDICATION: Signs/Symptoms:ILD. COMPARISON: None. ACCESSION NUMBER(S): [id number] ORDERING CLINICIAN: ROSALINO PADRON TECHNIQUE: Using helical [...] Julissa Banuelos 07/20/2024 1:33 PM Dictation workstation: [id number] [facility] CT Cheston 07-20-2024 1. Extensive subpleu [...] Julissa Banuelos 07/20/2024 1:33 PM Dictation workstation: [id number] Interpreted By: Julissa Pleitez, STUDY: CT CHEST HIGH RESOLUTION; 07/20/2024 12:56 pm INDICATION: Signs/Symptoms:ILD. COMPARISON: None. ACCESSION NUMBER(S): [id number] ORDERING CLINICIAN: ROSALINO PADRON TECHNIQUE: Using helical [...] pm INDICATION: Signs/Symptoms:ILD. COMPARISON: None. ACCESSION NUMBER(S): [id number] ORDERING CLINICIAN: ROSALINO PADRON TECHNIQUE: Using helical [...] Julissa Banuelos 07/20/2024 1:33 PM Dictation workstation: [id number] [facility] Work Phone: Radiology Study observation (narrative) [facility] Work Phone: CT ChestOrdered By: Julissa Banuelos on 07-20-2024 [facility] Work Phone: Office Visit Reporton 2024 [facility] Pulmonary Visit Report Normal [facility] Office Visit Reporton 2024 [facility] Visit Report [facility]on 06-01-2024 36 Patient called in [...] and to seek medical attention immediately. Normal [facility] 12 Lead EKG performed by [facility] on 05-21-2024 12 Lead EKG performed by [facility] Normal [facility] Basic Metabolic Profile (BMP )on 05-21-2024 BUN/CRE 21.2 RATIO High 01-18 [facility] Comment on above: Performed By: #### L 500.2500 ####[facility] [address] [place] [address] [place],Total 9.6 mg/dL Normal 8.5-10.1 [facility] Comment on above: Performed By: #### L 500.2500 ####[facility] [address] [place] [address] Chloride [Moles/Vol] 99 mmol/L Normal 98-107 [facility] Comment on above: Performed By: #### L 500.2500 ####[facility] [address] [place] [id number] CO2 [Moles/Vol] 26.0 mmol/L Normal 21.0-32.0 [facility] Comment on above: Performed By: #### L 500.2500 ####[facility] [address] [place] [id number] Creatinine [Mass/Vol] 1.60 mg/dL High 0.70-1.[address] [facility] Comment on above: Result Comment: The validity of the calculated GFR GFRAA in patients over70 years has not been determined. Clinical correlation isessential. Performed By: #### L 500.2500 ####[facility] [address] [place] [id number] EST GFR - AA 57 mL/min Low >60 [facility] Comment on above: Result Comment: Afri can Z[place]ian GFR Calc Performed By: #### L 500.2500 ####[facility] [address] [place], [address] GAP 12 Normal 5-15 [facility] Comment on above: Performed By: #### L 500.2500 ####[facility] [address] [place], [address] GFR/1.73 sq M.predicted among non-blacks MDRD (S/P/Bld) [Vol rate/Area] 47 mL/min/{1.73_m2} Low >60 [facility] Comment on above: Result Comment: Non- GFR Calc Performed By: #### L 500.2500 ####[facility] [address] [place], [address] Glucose [Mass/Vol] 174 mg/dL High 74-106 [facility] Comment on above: Result Comment: Fast ing Glucose result greater than or equal to 126 mg/dLsuggests DIABETES MELLITUS per A.D.A. criteria. Performed By: #### L 500.2500 ####[facility] [address] [place], [address] Potassium [Moles/Vol] 3.8 mmol/L Normal 3.5-5.[address] [facility] Comment on above: Performed By: #### L 500.2500 ####[facility] [address] [place], [address] Sodium [Moles/Vol] 136 mmol/L Normal 136-145 [facility] Comment on above: Performed By: #### L 500.2500 ####[facility] [address] [place], [address] Urea nitrogen [Mass/Vol] 34 mg/dL High 7-18 [facility] Comment on above: Performed By: #### L 500.2500 ####[facility] [address] [place], [address] Bilirubin directOrdered By: SAV Rojas on 05-21-2024 Bilirubin.direct [Mass/Vol] 0.32 mg/dL High 0.00-0.30 [facility] Bilirubin, totalOrdered By: SAV Rojas on 05-21-2024 Bilirubin [Mass/Vol] 1.40 mg/dL High 0.20-1.00 [facility] Comment on above: For patients on eltr ombopag therapy, use of Dimension [place] TBIL is not recommended. Blood urea nitrogen (BUN)/cr eatinine ratioOrdered By: Lydia Segura on 05-21-2024 Urea nitrogen/Creatinine [Mass ratio] 21.2 mg/mg High 10-20 [facility] Carbon dioxide measurementOr dered By: Lydia Segura on 05-21-2024 CO2 [Moles/Vol] 26.0 mmol/L 21.0-32.0 [facility] Cardiology Visit Reporton Cardiology Visit Report Normal [facility] Chloride measurementOrdered By: Lydia Segura on 05-21-2024 Chloride [Moles/Vol] 99 mmol/L 98-107 [facility] Glomerular filtration rate ( GFR) estimationOrdered By: Lydia Segura on 05-21-2024 GFR/1.73 sq M.predicted among non-blacks MDRD (S/P/Bld) [Vol rate/Area] 47 mL/min/{1.73_m2} Low >60 [facility] Comment on above: Non- GFR Calc Glucose measurementOrdered B y: Lydia Segura on 05-21-2024 Glucose [Mass/Vol] 174 mg/dL High 74-106 [facility] Comment on above: Fasting Glucose resu lt greater than or equal to 126 mg/dL suggests DIABETES MELLITUS per A.D.A. criteria. Laboratory - Chemistry and C hemistry - challengeOrdered By: SAV Rojas on 05-21-2024 AST [Catalytic activity/Vol] 18 U/L 15-37 [facility] Liver Profileon 05-21-2024 Albumin [Mass/Vol] 3.4 g/dL Normal 3.2-5.0 [facility] Comment on above: Order Comment: 1 mo. after 1st dose of OFEV, monthly for 1st 3 mo Performed By: #### L 500.3400 ####[facility] [address] [place], [address] ALK P 81 U/L Normal 45-117 [facility] Comment on above: Order Comment: 1 mo. after 1st dose of OFEV, monthly for 1st 3 mo Performed By: #### L 500.3400 ####[facility] [address] [place], [address] ALT [Catalytic activity/Vol] 17 U/L Normal 16-61 [facility] Comment on above: Order Comment: 1 mo. after 1st dose of OFEV, monthly for 1st 3 mo Performed By: #### L 500.3400 ####[facility] [address] [place], [address] AST [Catalytic activity/Vol] 18 U/L Normal 15-37 [facility] Comment on above: Order Comment: 1 mo. after 1st dose of OFEV, monthly for 1st 3 mo Performed By: #### L 500.3400 ####[facility] [address] [place], [address] Bilirubin [Mass/Vol] 1.40 mg/dL High 0.20-1.00 [facility] Comment on above: Order Comment: 1 mo. after 1st dose of OFEV, monthly for 1st 3 mo Result Comment: For patients on eltrombopag therapy, use of Dimension [place] TBIL is not recommended. Performed By: #### L 500.3400 ####[facility] [address] [place], [address] Bilirubin.direct [Mass/Vol] 0.32 mg/dL High 0.00-0.30 [facility] Comment on above: Order Comment: 1 mo. after 1st dose of OFEV, monthly for 1st 3 mo Performed By: #### L 500.3400 ####[facility] [address] [place], [place], [address] Globulin (S) [Mass/Vol] 5.1 g/dL High 2.2-4.2 [facility] Comment on above: Order Comment: 1 mo. after 1st dose of OFEV, monthly for 1st 3 mo Performed By: #### L 500.3400 ####[facility] [address] [place], [address] T PROT 8.5 g/dL High 6.4-8.2 [facility] Comment on above: Order Comment: 1 mo. after 1st dose of OFEV, monthly for 1st 3 mo Performed By: #### L 500.3400 ####[facility] [address] [place], [place], [id number] No Panel InformationOrdered By: SAV Rojas on 05-21-2024 18 U/L 15-37 [facility] Potassium measurementOrdered By: Lydia Segura on 05-21-2024 Potassium [Moles/Vol] 3.8 mmol/L 3.5-5.[address] [facility] Serum anion gap measurementO rdered By: Lydia Segura on 05-21-2024 Anion gap [Moles/Vol] 12 mmol/L 5-[address] [facility] Serum globulin measurementOr dered By: SAV Rojas on 05-21-2024 Globulin (S) [Mass/Vol] 5.1 g/dL High 2.2-4.2 [facility] Serum or plasma alanine briscoe otransferase (ALT) measurementOrdered By: SAV Rojas on 05-21-2024 ALT [Catalytic activity/Vol] 17 U/L 16-61 [facility] Serum or plasma albumin grazyna urement (mass/volume)Ordered By: SAV Rojas on 05-21-2024 Albumin [Mass/Vol] 3.4 g/dL 3.2-5.0 [facility] Serum or plasma alkaline benjamin sphatase measurementOrdered By: SAV Rojas on 05-21-2024 ALP [Catalytic activity/Vol] 81 U/L 45-117 [facility] Serum or plasma calcium grazyna urement (mass/volume)Ordered By: Lydia Segura on 05-21-2024 Calcium [Mass/Vol] 9.6 mg/dL 8.5-10.1 [facility] Serum or plasma creatinine m easurement (mass/volume)Ordered By: Lydia Segura on 05-21-2024 Creatinine [Mass/Vol] 1.60 mg/dL High 0.70-1.[address] [facility] Comment on above: The validity of the calculated GFR & GFRAA in patients over 70 years has not been determined. Clinical correlation is essential. Serum or plasma urea nitroge n measurement (mass/volume)Ordered By: Lydia Segura on 05-21-2024 Urea nitrogen [Mass/Vol] 34 mg/dL High 7-18 [facility] Sodium levelOrdered By: Macho Segura on 05-21-2024 Sodium [Moles/Vol] 136 mmol/L 136-145 [facility] Total proteinOrdered By: SAV Rojas on 05-21-2024 Protein [Mass/Vol] 8.5 g/dL High 6.4-8.2 [facility] 36on 05-13-2024 36 Patient lvm with questions about what medications he should be taking post op. I returned his call but had to [facility] with call back number. [facility] 36on 05-08-2024 36 Spoke with Mr. [...] 1 year. Sooner prstan Culp MD Normal [facility] ECG 12-LEADon 05-07-2024 ECG 12-LEAD IMPRESSION: Sinus rhythm Atrial premature complex LVH with IVCD and secondary repol abnrm Inferior infarct, age indeterminate Electronically Signed On 05-07-2024 10:34:37 EST by Krunal Allen Normal [facility] APTTon 05-06-2024 aPTT Coag (Bld) [Time] 22.1 s Normal 20.0-30.5 [facility] Comment on above: Result Comment: DAPHNE Lang COMMENTS: NOTE: The therapeutic time for Heparin anticoagulation, based on Xa activity inhibition, is an APTT of 46-80 seconds. Performed By: #### L [id number], [id number] ####Rn Integrated: RADHA SIMMONS ([id number])[facility])[address] [place] [address] BASIC METABOLIC PANELon Anion gap [Moles/Vol] 9 mmol/L Normal 3-13 [facility] Comment on above: Performed By: #### L AB15 ####Rn Integrated: RADHA SIMMONS ([id number])[facility])[address] [place] [address] Calcium [Mass/Vol] 8.5 mg/dL Low 8.8-10.0 [facility] Comment on above: Performed By: #### L AB15 ####Rn Integrated: RADHA SIMMONS ([id number])[facility] ([facility])[address] [place] [address] [place] Chloride [Moles/Vol] 103 mmol/L Normal 98-107 [facility] Comment on above: Performed By: #### L AB15 ####Rn Integrated: RADHA SIMMONS ([id number])[facility])[address] [place] [address] CO2 [Moles/Vol] 22 mmol/L Normal 22-29 [facility] Comment on above: Performed By: #### L AB15 ####Rn Integrated: RADHA SIMMONS ([id number])[facility])[address] [place] [address] Creatinine [Mass/Vol] 0.96 mg/dL Normal 0.72-1.25 [facility] Comment on above: Performed By: #### L AB15 ####Rn Integrated: RADHA SIMMONS ([id number])[facility])[address] [place] [address] GLOMERULAR FILTRATION RATE ML/MIN/1.73 SQ M.PREDICTED >90.0 Normal >60.0 [facility] Comment on above: Result Comment: Calc ulation based on the Chronic Kidney Disease Epidemiology Collaboration (CKD-EPI) equation refit without adjustment for race Performed By: #### L AB15 ####Rn Integrated: RADHA SIMMONS ([id number])[facility])[address] [place] [address] Glucose [Mass/Vol] 107 mg/dL High 74-100 [facility] Comment on above: Performed By: #### L AB15 ####Rn Integrated: RADHA SIMMONS ([id number])[facility])[address] [place] [address] Potassium [Moles/Vol] 3.9 mmol/L Normal 3.5-5.1 [facility] Comment on above: Result Comment: TC Significant interference from hemolysis. Result integrity compromised. Interpret with caution. Performed By: #### L AB15 ####Rn Integrated: RADHA SIMMONS ([id number])[facility])[address] [place] [address] Sodium [Moles/Vol] 134 mmol/L Low 136-145 [facility] Comment on above: Performed By: #### L AB15 ####Rn Integrated: RADHA SIMMONS ([id number])[facility])[address] [place] [address] Urea nitrogen [Mass/Vol] 31 mg/dL High 9-23 [facility] Comment on above: Performed By: #### L AB15 ####Rn Integrated: RADHA SIMMONS ([id number])[facility])[address] [place] [address] Basic metabolic 1998 panelon 05-06-2024 Anion gap [Moles/Vol] 9 mmol/L 3 - 13 mmol/L [facility] Calcium [Mass/Vol] 8.5 mg/dL Low 8.8 - 10. 0 mg/dL [facility] Chloride [Moles/Vol] 103 mmol/L 98 - 10 7 mmol/L [facility] CO2 [Moles/Vol] 22 mmol/L 22 - 29 mmol/L [facility] Creatinine [Mass/Vol] 0.96 mg/dL 0.72 - 1.25 mg/dL [facility] GFR/1.73 sq M.predicted (S/P/Bld) [Vol rate/Area] - PINF [facility] Comment on above: Calculation based on the Chronic Kidney Disease Epidemiology Collaboration (CKD-EPI) equation refit without adjustment for race Glucose [Mass/Vol] 107 mg/dL High 74 - 100 mg/dL [facility] Interpretation and review of laboratory results Abnormal [facility] Potassium [Moles/Vol] 3.9 mmol/L 3.5 - 5.1 mmol/L [facility] Comment on above: TC Significant interference from hemolysis. Result integrity compromised. Interpret with caution. Sodium [Moles/Vol] 134 mmol/L Low 136 - 145 mmol/L [facility] Urea nitrogen [Mass/Vol] 31 mg/dL High 9 - 23 mg/dL [facility] CBC (HEMOGRAM)on 05-06-2024 Erythrocyte distribution width (RBC) [Ratio] 20.8 % High 11.5-15.0 [facility] Comment on above: Performed By: #### L [id number] ####Rn Integrated: RADHA SIMMONS ([id number])[facility])[address] [place] [address] Hematocrit (Bld) [Volume fraction] 30.1 % Low 40.0-52.0 [facility] Comment on above: Performed By: #### L AB294 ####Rn Integrated: RADHA SIMMONS ([id number])[facility])[address] [place] [address] Hemoglobin (Bld) [Mass/Vol] 9.0 g/dL Low 13.0-18.0 [facility] Comment on above: Performed By: #### L AB294 ####Rn Integrated: RADHA SIMMONS ([id number])[facility])[address] [place] [address] MCH (RBC) [Entitic mass] 22.5 pg Low 26.0-34.0 [facility] Comment on above: Performed By: #### L AB294 ####Rn Integrated: RADHA SIMMONS ([id number])[facility])[address] [place] [address] MCHC 29.9 % Low 30.5-36.0 [facility] Comment on above: Performed By: #### L AB294 ####Rn Integrated: RADHA SIMMONS ([id number])[facility])[address] [place] [address] MCV (RBC) [Entitic vol] 75.3 fL Low 77.0-99.0 [facility] Comment on above: Performed By: #### L AB294 ####Rn Integrated: RADHA SIMMONS ([id number])[facility])[address] [place] [address] Platelet mean volume (Bld) [Entitic vol] 10.2 fL Normal 9.0-12.7 [facility] Comment on above: Performed By: #### L AB294 ####Rn Integrated: RADHA SIMMONS ([id number])[facility])[address] [place] [address] Platelets (Bld) [#/Vol] 243 10*3/uL Normal 140-440 [facility] Comment on above: Performed By: #### L AB294 ####Rn Integrated: RADHA SIMMONS ([id number])[facility])[address] [place] [address] RBC (Bld) [#/Vol] 4.00 10*6/uL Low 4.40-5.90 [facility] Comment on above: Performed By: #### L AB294 ####Rn Integrated: RADHA SIMMONS ([id number])[facility])[address] [place] [address] WBC (Bld) [#/Vol] 11.1 10*3/uL High 3.6-10.7 [facility] Comment on above: Performed By: #### L [id number] ####Rn Integrated: RADHA SIMMONS ([id number])[facility])[address] [place] [address] CBC panel Auto (Bld)Ordered By: Krupa Rodriguez on 05-06-2024 Erythrocyte distribution width (RBC) [Ratio] 20.8 % High 11.5 - 15.0 % [facility] Hematocrit (Bld) [Volume fraction] 30.1 % Low 40.0 - 52.0 % [facility] Hemoglobin (Bld) [Mass/Vol] 9 g/dL Low 13.0 - 18.0 g/dL [facility] Interpretation and review of laboratory results Abnormal [facility] MCH (RBC) [Entitic mass] 22.5 pg Low 26.0 - 34.0 pg [facility] MCHC (RBC) [Mass/Vol] 29.9 % Low 30.5 - 36.0 % [facility] MCV (RBC) [Entitic vol] 75.3 fL Low 77.0 - 99.0 fL [facility] Platelet mean volume (Bld) [Entitic vol] 10.2 fL 9.0 - 12.7 fL [facility] Platelets (Bld) [#/Vol] 243 10*3/uL 140 - 440 10*3/uL [facility] RBC (Bld) [#/Vol] 4 10*6/uL Low 4.40 - 5.90 10*6/uL [facility] WBC (Bld) [#/Vol] 11.1 10*3/uL High 3.6 - 10.7 10*3/uL [facility] Consulton 05-06-2024 Consult CONSULT NOTE: [...] PLAN: 1. Obtain P2 Y12 study 2. [place] Brilinta 90 mg twice daily x 30 [...] 10 to 15 minutes. Was hospitalized at [place] and had Plavix added at that time. [...] Symptoms resolved. He was again hospitalized at [facility]. No medication changes were made. April 2024: [...] Pt denie (more content not included)... Normal [facility] Laboratory - Coagulationon 0 05-06-2024 PT Coag (Bld) [Time] 10.9 s 9.0 - 1 2.0 s [facility] No Panel InformationOrdered By: Ana Maria Mancini on 05-06-2024 Interpretation and review of laboratory results Normal [facility] PRU Test (P2Y12) 211 180 - PINF [facility] Jose Luis ben Comment on above: >180 - 376 PRU [P2Y1 2 Reaction Units] - No drug present 10-180 PRU [P2Y12 Reaction Units] - Decreased platelet reactivity to P2Y12 inhibitor. [facility] No Panel Informationon 05-06 Interpretation and review of laboratory results Normal [facility] Nursing Noteon 05-06-2024 Nursing Note Phase 2 care complet ed. Iv removed and dc instructions provided. Will dc to home with family Right groin site benign and neuro unchanged NIH 0 Normal [facility] Nursing Note Patient arrived from home, Dr. Culp in to speak with the patient regarding DCA with possible carotid stenting, consent obtained. Patient was placed supine on exam table prepped and draped in sterile fashion. Telemetry monitors placed, sedation provided by [employer]. Patient tolerated procedure well. Transfer to ICU. Normal [facility] PROTHROMBIN TIMEon INR Coag (PPP) [Relative time] 1.0 {INR} Normal 0.9-1.1 [facility] Comment on above: Result Comment: Luciano [...] Myocardial Infarction Performed By: #### L AB320, [id number] ####Rn Integrated: RADHA SIMMONS ([id number])[facility] ([facility] PT Coag (PPP) [Time] 10.9 s Normal 9.0-12.0 [facility] Comment on above: Performed By: #### L AB320, [id number] ####Rn Integrated: RADHA SIMMONS ([id number])[facility] [employer] [facility] ([facility])[address] [id number] [place] PRU TEST (P2Y12)on 5 PRU TEST (P2Y12) 211 Normal >=180 [facility] [employer] [facility] Comment on above: Result Comment: >180 - 376 PRU [P2Y12 Reaction Units] - No drug present 10-180 PRU [P2Y12 Reaction Units] - Decreased platelet reactivity to P2Y12 inhibitor. Performed By: #### L [id number] ####Rn Integrated: RADHA SIMMONS ([id number])[facility] [employer] [facility] ([facility])[address] [id number] 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 He has had multiple events despite treatment with Eliquis (for atrial fibrillation), ASA and clopidogrel. The most recent event was 2 weeks ago, and he follows in [place]. CTA was concerning for left ICA severe stenosis and he presented for conventional angiography to evaluate and treat carotid stenosis if present and further evaluate right MCA stenosis. Consent: The benefits, alternatives, and risks to the procedure including but not limited to stroke, bleed, infection, dissection, pseudoaneurysm, SC, renal failure, radiation injury, hair loss, contrast [...] 4F dilator was exchanged for a 5 [place] short sheath over a guidewire. The short [...] The left midd (more content not included)... 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 He has had multiple events despite treatment with Eliquis (for atrial fibrillation), ASA and clopidogrel. The most recent event was 2 weeks ago, and he follows in [place]. CTA was concerning for left ICA severe stenosis and he presented for conventional angiography to evaluate and treat carotid stenosis if present and further evaluate right MCA stenosis. Consent: The benefits, alternatives, and risks to the procedure including but not limited to stroke, bleed, infection, dissection, pseudoaneurysm, SC, renal failure, radiation injury, hair loss, contrast [...] 4F dilator was exchanged for a 5 [place] short sheath over a guidewire. The short sheath was connected to heparinized saline flush. Fluoroscopy was performed over the right femoral artery in the right anterior oblique projection. The point of entry of the sheath is at the femoral bifurcation. The femoral artery is well visualized and normal. Through the short sheath, a 100 cm vert. angle DoNanza diagnostic catheter was advanced over a 0.018 [...] AP and late (more content not included)... [facility] Radiology Study observation (narrative) [facility] alth RFA Cerebral arteries Bilate ral Views W contrast IAOrdered By: Oziel Culp on 05-06-2024 [facility] [employer] Work Phone: aPTT Coag (Bld) [Time]on aPTT Coag (PPP) [Time] 22.1 s 20.0 - 30.5 s [facility] NOTE: The therapeuti c time for Heparin anticoagulation, based on Xa activity inhibition, is an APTT of 46-80 seconds. [facility] Absolute lymphocyte countOrd ered By: Rito Lundberg on 05-05-2024 Lymphocytes Auto (Unsp spec) [#/Vol] 1.51 10*3/uL 0.83-4.51 [facility] Automated lymphocyte count a s percentage of total leukocytesOrdered By: Rito Lundberg on 05-05-2024 Lymphocytes/100 WBC Auto (Unsp spec) 11.3 % Low 19-41 [facility] Basophil percentageOrdered B y: Rito Lundberg on 05-05-2024 Basophils/100 WBC (Bld) 0.4 % 0-1 [facility] Blood manual differential co mment interpretation (narrative result)Ordered By: Rito Lundberg on 05-05-2024 Manual differential comment Cedrick (Bld) [Interp] SCANNED [facility] CBC W/Diff, Automatedon OVALOCYTE 2+ Normal [facility] Comment on above: Performed By: #### L 503.6030, L503.0105, L100.0100, L503.6550 ####[facility] [address] [place], [address] Anisocytosis Ql (Bld) 2+ Normal [facility] Comment on above: Performed By: #### L 503.6030, L503.0105, L100.0100, L503.6550 ####[facility] [address] [place], [address] MICROCYTIC 1+ Normal [facility] Comment on above: Performed By: #### L 503.6030, L503.0105, L100.0100, L503.6550 ####[facility] [address] [place], [address] PLT EST ADEQUATE Normal ADEQ [facility] Comment on above: Performed By: #### L 503.6030, L503.0105, L100.0100, L503.6550 ####[facility] [address] [place], [address] SMEAR COMMENT SCANNED Normal [facility] Comment on above: Performed By: #### L 503.6030, L503.0105, L100.0100, L503.6550 ####[facility] [address] [place], [address] Eosinophil percentageOrdered By: Rito Lundberg on 05-05-2024 Eosinophils/100 WBC (Bld) 2.1 % 0-5 [facility] Erythrocyte distribution wid th ratioOrdered By: Rito Lundberg on 05-05-2024 Erythrocyte distribution width (RBC) [Ratio] 21.0 % High 11.6-14.6 [facility] Erythrocyte distribution wid th standard deviationOrdered By: [facility] Lundberg on 05-05-2024 Erythrocyte distribution width (RBC) [Ratio] 56.7 fl High 35.1-43.9 [facility] Ferritinon 05-05-2024 Ferritin [Mass/Vol] 134 ng/mL Normal 26-388 [facility] Comment on above: Performed By: #### L 503.6030, L503.0105, L100.0100, L503.6550 ####[facility] [address] [place], [address] Hematocrit Auto (Bld) [Volum e fraction]Ordered By: Rito Lundberg on 05-05-2024 Hematocrit (Bld) [Volume fraction] 31.6 % Low 40-54 [facility] Hemoglobin measurementOrdere d By: Rito Lundberg on 05-05-2024 Hemoglobin (Bld) [Mass/Vol] 9.3 g/dL Low 13.0-16.5 [facility] Immature granulocytes/100 WB C Auto (Bld)Ordered By: Rito Lundberg on 05-05-2024 Immature granulocytes/100 WBC (Bld) 0.600 % 0.0-0.9 [facility] Iron measurement (mass/mass) Ordered By: Rito Lundberg on 05-05-2024 Iron (Unsp spec) [Mass/Mass] 74 ug/dL 65-175 [facility] Iron+Iron Binding Capacityon 05-05-2024 Iron [Mass/Vol] 74 ug/dL Normal 65-175 [facility] Comment on above: Performed By: #### L 503.6030, L503.0105, L100.0100, L503.6550 ####[facility] [address] [place], [address] IRON SATURATION 22.0 Normal 15.0-55.0 [facility] Comment on above: Performed By: #### L 503.6030, L503.0105, L100.0100, L503.6550 ####[facility] [address] [place], [address] TIBC 337 ug/dL Normal 250-450 [facility] Comment on above: Performed By: #### L 503.6030, L503.0105, L100.0100, L503.6550 ####[facility] [address] [place], [address] MCV (mean corpuscular volume ) determinationOrdered By: Rito Lundberg on 05-05-2024 MCV (RBC) [Entitic vol] 76.5 fL Low 80-94 [facility] Mean corpuscular hemoglobin (MCH) determinationOrdered By: Rito Lundberg on 05-05-2024 MCH (RBC) [Entitic mass] 22.5 pg Low 27.0-32.0 [facility] Monocyte percentageOrdered B y: Rito Lundberg on 05-05-2024 Monocytes/100 WBC (Bld) 8.1 % 0-10 [facility] Neutrophil percentageOrdered By: Rito Lundberg on 05-05-2024 Neutrophils/100 WBC (Bld) 77.5 % High 47-70 [facility] No Panel InformationOrdered By: Rito Lundberg on 05-05-2024 2+ [facility] Nursing Noteon 05-05-2024 Nursing Note Report given to MARIO marsh, neuro assessment completed along with groin site check. Normal [facility] Oncology Visit Reporton Oncology Visit Report Normal [facility] Ovalocyte detectionOrdered B y: Rito Lundberg on 05-05-2024 Ovalocytes LM Ql (Bld) 2+ [facility] Platelet countOrdered By: Chanell Lundberg on 05-05-2024 Platelets (Bld) [#/Vol] 303 10*3/uL 150-450 [facility] Platelet estimateOrdered By: Rito Lundberg on 05-05-2024 Platelets LM Ql (Bld) ADEQUATE ADEQ [facility] RBC Auto (Bld) [#/Vol]Ordere d By: Rito Lundberg on 05-05-2024 RBC (Bld) [#/Vol] 4.13 10*6/uL Low 4.6-6.2 [facility] Serum or plasma iron saturat ion measurement (mass fraction)Ordered By: Rito Lundberg on 05-05-2024 Iron saturation [Mass fraction] 22.0 % 15.0-55.0 [facility] Vitamin B12on 05-05-2024 Cobalamin (Vitamin B12) [Mass/Vol] 1259 pg/mL High 211-911 [facility] Comment on above: Performed By: #### L 503.6030, L503.0105, L100.0100, L503.6550 ####[facility] [address] [place], [address] Vitamin B12 measurementOrder ed By: Rito Lundberg on 05-05-2024 Cobalamin (Vitamin B12) [Mass/Vol] 1259 pg/mL High 211-911 [facility] White blood cell (WBC) count Ordered By: Rito Lundberg on 05-05-2024 WBC (Bld) [#/Vol] 13.3 10*3/uL High 4.4-11.0 [facility] Pulmonary Visit Reporton Pulmonary Visit Report Normal [facility] Cardiology Visit Reporton Cardiology Visit Report Normal [facility] MR/BMS.BVSon 04-30-2024 MR/BMS.BVS Normal [facility] Office Visit Reporton 2024 Office Visit Report Normal [facility] 36on 04-27-2024 36 Spoke with patient [...] iv contrast dye, iodine, or shellfish. Normal [facility] Office Visiton 04-27-2024 Follow-up visit [id number] Krunal Leos 1965 M Date Provider Department Center 04/27/2024 [id number], SU[facility] None No family history on file Level of Service:09128 [place] OFFICE/OUTPATIENT ESTABLISHED MOD [facility] 30 MIN Reason for Visit and Comments: Follow-up [063887] - discuss carotid duplex 04/06/23 [facility] Progress Noteon 04-27-2024 Progress Note Vascular [...] Provider, Continuous Glucose Sensor (Dexcom G6 Sensor) [facility] Dexcom G6 Sensor Mis, USE DIRECTED FOR [...] Stallworth MD ergocalciferol (Vitamin D2) 1.25 MG (00069 UT) capsule Take 1 capsule by mouth [...] 2023. 10/06/23 01/06/24 Harmeet Stallworth MD HYDROcodone-acetaminophen ([place]) 5-325 MG tablet Take 1 tablet by [...] MD pantop (more content not included)... Normal [facility] Vitamin B12on 04-27-2024 Cobalamin (Vitamin B12) [Mass/Vol] 572 pg/mL Normal 211-911 [facility] Comment on above: Performed By: #### L 100.0100, L100.9950, L503.6550, L503.0105, L503.6030 ####[facility] [address] [place], [place], [address] Absolute lymphocyte countOrd ered By: Cookie Arabella on 04-25-2024 Lymphocytes Auto (Unsp spec) [#/Vol] 1.80 10*3/uL 0.83-4.51 [facility] Automated lymphocyte count a s percentage of total leukocytesOrdered By: Cookie Arabella on 04-25-2024 Lymphocytes/100 WBC Auto (Unsp spec) 14.4 % Low 19-41 [facility] Basophil percentageOrdered B y: on 04-25-2024 Basophils/100 WBC (Bld) 0.5 % 0-1 [facility] Bedside Glucoseon 04-25-2024 FINGERSTICK GLU 252 mg/dL High 74-106 [facility] Comment on above: Result Comment: ANI GEMENT OF PATIENT CARE PER NURSING PROTOCOL Performed By: #### L 501.080 ####[facility] [address] [place], [address] FINGERSTICK GLU 160 mg/dL High 74-106 [facility] Comment on above: Result Comment: ANI GEMENT OF PATIENT CARE PER NURSING PROTOCOL Performed By: #### L 501.080 ####[facility] [address] [place], [address] FINGERSTICK GLU 249 mg/dL High 74-106 [facility] Comment on above: Result Comment: ANI BRADFORD OF PATIENT CARE PER NURSING PROTOCOL Performed By: #### L 501.080 ####[facility] [address] [place], [address] Bilirubin, totalOrdered By: Cookie White on 04-25-2024 Bilirubin [Mass/Vol] 0.60 mg/dL 0.20-1.00 [facility] Blood manual differential co mment interpretation (narrative result)Ordered By: White on 04-25-2024 Manual differential comment Cedrick (Bld) [Interp] SCANNED [facility] Blood polychromasia detectio n by light microscopyOrdered By: White on 04-25-2024 Polychromasia LM Ql (Bld) RARE [facility] Blood schistocyte detection by light microscopyOrdered By: White on 04-25-2024 Schistocytes LM Ql (Bld) RARE [facility] Brain without Contraston Brain without Contrast Normal [facility] CBC W/Diff, Automatedon 04-02 [employer] CELLS RARE Normal [facility] Comment on above: Performed By: #### L 500.4100, L501.9985, L500.4050, L501.9520, L100.0100 ####[facility] [address] [place], [address] MICROCYTIC 1+ Normal [facility] Comment on above: Performed By: #### L 500.4100, L501.9985, L500.4050, L501.9520, L100.0100 ####[facility] [address] [place], [address] SCHISTOCYTES RARE Normal [facility] Comment on above: Performed By: #### L 500.4100, L501.9985, L500.4050, L501.9520, L100.0100 ####[facility] [address] [place], [address] POLYCHROMASIA RARE Normal [facility] Comment on above: Performed By: #### L 500.4100, L501.9985, L500.4050, L501.9520, L100.0100 ####[facility] [address] [place], [address] SMEAR COMMENT SCANNED Normal [facility] Comment on above: Performed By: #### L 500.4100, L501.9985, L500.4050, L501.9520, L100.0100 ####[facility] [address] [place], [address] Carbon dioxide measurementOr dered By: Cookie Bell on 04-25-2024 CO2 [Moles/Vol] 26.0 mmol/L 21.0-32.0 [facility] Chloride measurementOrdered By: Cookie Bell on 04-25-2024 Chloride [Moles/Vol] 103 mmol/L 98-107 [facility] Comprehensive Metabolic Prof ilon 04-25-2024 Albumin [Mass/Vol] 2.8 g/dL Low 3.2-5.0 [facility] Comment on above: Performed By: #### L 500.4100, L501.9985, L500.4050, L501.9520, L100.0100 ####[facility] [address] [place], [address] Albumin/Globulin [Mass ratio] 0.7 {ratio} Low 0.9-2.4 [facility] Comment on above: Performed By: #### L 500.4100, L501.9985, L500.4050, L501.9520, L100.0100 ####[facility] [address] [place], [address] ALK P 69 U/L Normal 45-117 [facility] Comment on above: Performed By: #### L 500.4100, L501.9985, L500.4050, L501.9520, L100.0100 ####[facility] [address] [place], [address] ALT [Catalytic activity/Vol] 18 U/L Normal 16-61 [facility] Comment on above: Performed By: #### L 500.4100, L501.9985, L500.4050, L501.9520, L100.0100 ####[facility] [address] [place], [address] AST [Catalytic activity/Vol] 13 U/L Low 15-37 [facility] Comment on above: Performed By: #### L 500.4100, L501.9985, L500.4050, L501.9520, L100.0100 ####[facility] [address] [place], [address] Bilirubin [Mass/Vol] 0.60 mg/dL Normal 0.20-1.00 [facility] Comment on above: Result Comment: For patients on eltrombopag therapy, use of Dimension [place] TBIL is not recommended. Performed By: #### L 500.4100, L501.9985, L500.4050, L501.9520, L100.0100 ####[facility] [address] [place], [address] BUN/CRE 26.3 RATIO High 10-20 [facility] Comment on above: Performed By: #### L 500.4100, L501.9985, L500.4050, L501.9520, L100.0100 ####[facility] [address] [place], [address] CA,Total 8.5 mg/dL Normal 8.5-10.1 [facility] Comment on above: Performed By: #### L 500.4100, L501.9985, L500.4050, L501.9520, L100.0100 ####[facility] [address] [place], [address] Chloride [Moles/Vol] 103 mmol/L Normal 98-107 [facility] Comment on above: Performed By: #### L 500.4100, L501.9985, L500.4050, L501.9520, L100.0100 ####[facility] [address] [place], [address] CO2 [Moles/Vol] 26.0 mmol/L Normal 21.0-32.0 [facility] Comment on above: Performed By: #### L 500.4100, L501.9985, L500.4050, L501.9520, L100.0100 ####[facility] [address] [place], [address] Creatinine [Mass/Vol] 1.14 mg/dL Normal 0.70-1.[address] [facility] Comment on above: Result Comment: The validity of the calculated GFR GFRAA in patients over70 years has not been determined. Clinical correlation isessential. Performed By: #### L 500.4100, L501.9985, L500.4050, L501.9520, L100.0100 ####[facility] [address] [place], [address] ECRCL 94.76 ml/min Normal [facility] Comment on above: Performed By: #### L 500.4100, L501.9985, L500.4050, L501.9520, L100.0100 ####[facility] [address] [place], [address] EST GFR - AA 84 mL/min Normal >60 [facility] Comment on above: Result Comment: Afri can [place] GFR Calc Performed By: #### L 500.4100, L501.9985, L500.4050, L501.9520, L100.0100 ####[facility] [address] [place], [address] GAP 8 Normal 5-15 [facility] Comment on above: Performed By: #### L 500.4100, L501.9985, L500.4050, L501.9520, L100.0100 ####[facility] [address] [place], [address] GFR/1.73 sq M.predicted among non-blacks MDRD (S/P/Bld) [Vol rate/Area] 70 mL/min/{1.73_m2} Normal >60 [facility] Comment on above: Result Comment: Non- GFR Calc Performed By: #### L 500.4100, L501.9985, L500.4050, L501.9520, L100.0100 ####[facility] [address] [place], [address] Globulin (S) [Mass/Vol] 4.0 g/dL Normal 2.2-4.2 [facility] Comment on above: Performed By: #### L 500.4100, L501.9985, L500.4050, L501.9520, L100.0100 ####[facility] [address] [place], [address] Glucose [Mass/Vol] 172 mg/dL High 74-106 [facility] Comment on above: Result Comment: Fast ing Glucose result greater than or equal to 126 mg/dLsuggests DIABETES MELLITUS per A.D.A. criteria. Performed By: #### L 500.4100, L501.9985, L500.4050, L501.9520, L100.0100 ####[facility] [address] [place], [address] Potassium [Moles/Vol] 3.7 mmol/L Normal 3.5-5.[address] [facility] Comment on above: Performed By: #### L 500.4100, L501.9985, L500.4050, L501.9520, L100.0100 ####[facility] [address] [place], [address] Sodium [Moles/Vol] 137 mmol/L Normal 136-145 [facility] Comment on above: Performed By: #### L 500.4100, L501.9985, L500.4050, L501.9520, L100.0100 ####[facility] [address] [place], [address] T PROT 6.8 g/dL Normal 6.4-8.2 [facility] Comment on above: Performed By: #### L 500.4100, L501.9985, L500.4050, L501.9520, L100.0100 ####[facility] [address] [place], [address] Urea nitrogen [Mass/Vol] 30 mg/dL High 7-18 [facility] Comment on above: Performed By: #### L 500.4100, L501.9985, L500.4050, L501.9520, L100.0100 ####[facility] [address] [place], [address] Eosinophil percentageOrdered By: Cookie Arabella on 04-25-2024 Eosinophils/100 WBC (Bld) 3.1 % 0-5 [facility] Erythrocyte distribution wid th ratioOrdered By: on 04-25-2024 Erythrocyte distribution width (RBC) [Ratio] 20.5 % High 11.6-14.6 [facility] Erythrocyte distribution wid th standard deviationOrdered By: on 04-25-2024 Erythrocyte distribution width (RBC) [Ratio] 54.5 fl High 35.1-43.9 [facility] Glomerular filtration rate ( GFR) estimationOrdered By: on 04-25-2024 GFR/1.73 sq M.predicted among non-blacks MDRD (S/P/Bld) [Vol rate/Area] 70 mL/min/{1.73_m2} >60 [facility] Glucose measurementOrdered B y: Cookie Bell on 04-25-2024 Glucose [Mass/Vol] 172 mg/dL High 74-106 [facility] Gl[facility] deOrdered By: Ochoa Johnson on 04-25-2024 Glucose [Mass/Vol] 252 mg/dL High 74-106 [facility] Hematocrit Auto (Bld) [Volum e fraction]Ordered By: Cookie Bell on 04-25-2024 Hematocrit (Bld) [Volume fraction] 29.2 % Low 40-54 [facility] Hemoglobin A1con 04-25-2024 HbA1c (Bld) [Mass fraction] 7.3 % High 3.8-5.6 [facility] Comment on above: Result Comment: Norm al < 5.7 % Prediabetic 5.7 - 6.4 % Diabetic >or= 6.5 % Please note range changes. Performed By: #### L 500.4100, L501.9985, L500.4050, L501.9520, L100.0100 ####[facility] [address] [place], [address] Hemoglobin A1c percentageOrd ered By: Cookie Bell on 04-25-2024 HbA1c (Bld) [Mass fraction] 7.3 % High 3.8-5.6 [facility] Hemoglobin measurementOrdere d By: Cookie Bell on 04-25-2024 Hemoglobin (Bld) [Mass/Vol] 8.6 g/dL Low 13.0-16.5 [facility] High density lipoprotein (HD L) measurementOrdered By: Cookie Bell on 04-25-2024 High density lipoprotein (HDL) measurement 38 mg/dL Low >40 [facility] Immature granulocytes/100 WB C Auto (Bld)Ordered By: Cookie Arabella on 04-25-2024 Immature granulocytes/100 WBC (Bld) 0.600 % 0.0-0.9 [facility] L501.4020on 04-25-2024 TROPONIN-I HS 76 pg/mL Normal 3.0-78.0 [facility] Comment on above: Order Comment: Comme nts: SPECIMEN #3'TROP' Serial specimen #1, #2 or #3: 3 Result Comment: Plea Note: New Test Units and Gender Specific Reference Ranges. For more information see Policy Stat Procedure [place] High Sensitivity Troponin (TNIH) and attachments. Performed By: #### L 501.4020 ####[facility] [address] [place], [place], [id number] TROPONIN-I HS 103 pg/mL High 3.0-78.0 [facility] Comment on above: Order Comment: Comme nts: SPECIMEN #2'TROP' Serial specimen #1, #2 or #3: 2 Result Comment: Plea se Note: New Test Units and Gender Specific Reference Ranges. For more information see Policy Stat Procedure [place] High Sensitivity Troponin (TNIH) and attachments. Performed By: #### L 501.4020 ####[facility] [address] [facility] [place], [place], [id number] Lipid Profileon 04-25-2024 Cholesterol [Mass/Vol] 127 mg/dL Normal 200 [facility] Comment on above: Result Comment: <200 mg/dL Desirable 200-240 mg/dL Borderline >240 mg/dL High Risk Performed By: #### L 500.4100, L501.9985, L500.4050, L501.9520, L100.0100 ####[facility] [address] [facility] [address] [place], [place], [id number] Cholesterol in HDL [Mass/Vol] 38 mg/dL Low [facility] Comment on above: Result Comment: The drugs N-Acetylcysteine and Metamizole may falselydepress this assay. Reference Range HDL <40 mg/dL Low HDL Cholesterol HDL >or= 60 mg/dL High HDL Cholesterol Performed By: #### L 500.4100, L501.9985, L500.4050, L501.9520, L100.0100 ####[facility] [address] [facility] [place], [address] Cholesterol in LDL [Mass/Vol] 46 mg/dL Normal 0-130 [facility] Comment on above: Performed By: #### L 500.4100, L501.9985, L500.4050, L501.9520, L100.0100 ####[facility] [address] [place], [address] Cholesterol in VLDL [Mass/Vol] 43 mg/dL High 5-40 [facility] Comment on above: Performed By: #### L 500.4100, L501.9985, L500.4050, L501.9520, L100.0100 ####[facility] [address] [place], [address] Triglyceride [Mass/Vol] 216 mg/dL High [facility] Comment on above: Result Comment: The drugs N-Acetylcysteine and Metamizole may falselydepress this assay.Serum Triglycerides Reference Interval Normal <150 mg/dL Borderline high 150 - 199 mg/dL High 200 - 499 mg/dL Very High > or = 500 mg/dL Performed By: #### L 500.4100, L501.9985, L500.4050, L501.9520, L100.0100 ####[facility] [address] [place], [address] Low density lipoprotein (LDL ) cholesterol measurementOrdered By: on 04-25-2024 Low density lipoprotein (LDL) cholesterol measurement 46 mg/dL 0-130 [facility] MCV (mean corpuscular volume ) determinationOrdered By: on 04-25-2024 MCV (RBC) [Entitic vol] 75.3 fL Low 80-94 [facility] MR/CON.PCM.NEon 04-25-2024 MR/CON.PCM.NE Normal [facility] Mean corpuscular hemoglobin (MCH) determinationOrdered By: on 04-25-2024 MCH (RBC) [Entitic mass] 22.2 pg Low 27.0-32.0 [facility] Monocyte percentageOrdered B y: on 04-25-2024 Monocytes/100 WBC (Bld) 9.8 % 0-10 [facility] Neutrophil percentageOrdered By: on 04-25-2024 Neutrophils/100 WBC (Bld) 71.6 % High 47-70 [facility] No Panel InformationOrdered By: Cookei Bell on 04-25-2024 13 U/L Low 15-37 [facility] Platelet countOrdered By: Katey lewis Arabella on 04-25-2024 Platelets (Bld) [#/Vol] 300 10*3/uL 150-450 [facility] Potassium measurementOrdered By: Cookie Bell on 04-25-2024 Potassium [Moles/Vol] 3.7 mmol/L 3.5-5.[address] [facility] RBC Auto (Bld) [#/Vol]Ordere d By: Cookie Bell on 04-25-2024 RBC (Bld) [#/Vol] 3.88 10*6/uL Low 4.6-6.2 [facility] Serum globulin measurementOr dered By: Cookie Bell on 04-25-2024 Globulin (S) [Mass/Vol] 4.0 g/dL 2.2-4.2 [facility] Serum or plasma alanine briscoe otransferase (ALT) measurementOrdered By: Cookie Bell on 04-25-2024 ALT [Catalytic activity/Vol] 18 U/L 16-61 [facility] Serum or plasma albumin grazyna urement (mass/volume)Ordered By: Cookie Bell on 04-25-2024 Albumin [Mass/Vol] 2.8 g/dL Low 3.2-5.0 [facility] Serum or plasma alkaline benjamin sphatase measurementOrdered By: Cookie Bell on 04-25-2024 ALP [Catalytic activity/Vol] 69 U/L 45-117 [facility] Serum or plasma calcium grazyna urement (mass/volume)Ordered By: Cookie Bell on 04-25-2024 Calcium [Mass/Vol] 8.5 mg/dL 8.5-10.1 [facility] Serum or plasma cholesterol measurement (mass/volume)Ordered By: Cookie Bell on 04-25-2024 Cholesterol [Mass/Vol] 127 mg/dL <200 [facility] Serum or plasma creatinine m easurement (mass/volume)Ordered By: Cookie Bell on 04-25-2024 Creatinine [Mass/Vol] 1.14 mg/dL 0.70-1.[address] [facility] Serum or plasma thyroid stim ulating hormone (TSH) measurement (units/volume)Ordered By: Cookie Bell on 04-25-2024 TSH Qn 5.220 uIU/mL High 0.358-3.74 0 [facility] Serum or plasma urea nitroge n measurement (mass/volume)Ordered By: Cookie Bell on 04-25-2024 Urea nitrogen [Mass/Vol] 30 mg/dL High 7-18 [facility] Sodium levelOrdered By: Celyu mn Arabella on 04-25-2024 Sodium [Moles/Vol] 137 mmol/L 136-145 [facility] Target cell detectionOrdered By: Cookie Bell on 04-25-2024 Target cells LM Ql (Bld) RARE [facility] Thyroid Stim Hormone (TSH)on 04-25-2024 TSH 5.220 uIU/mL High 0.358-3.74 0 [facility] Comment on above: Performed By: #### L 500.4100, L501.9985, L500.4050, L501.9520, L100.0100 ####[facility] [address] [place], [place], [id number] Total proteinOrdered By: Cely reynan Arabella on 04-25-2024 Protein [Mass/Vol] 6.8 g/dL 6.4-8.2 [facility] Troponin IOrdered By: Cookie Bell on 04-25-2024 Troponin I 76 pg/mL 3.0-78.0 [facility] Very low density lipoprotein (VLDL) cholesterol measurementOrdered By: Cookie Arabella on 04-25-2024 Very low density lipoprotein (VLDL) cholesterol measurement 43 mg/dL High 5-40 [facility] White blood cell (WBC) count Ordered By: Cookie Bell on 04-25-2024 WBC (Bld) [#/Vol] 12.5 10*3/uL High 4.4-11.0 [facility] 12 Lead EKGon 04-24-2024 12 Lead EKG Normal [facility] Abdomen Single View (Portabl e)on 04-24-2024 Abdomen Single View (Portable) Normal [facility] Absolute lymphocyte countOrd ered By: Radha Khan on 04-24-2024 Lymphocytes Auto (Unsp spec) [#/Vol] 2.02 10*3/uL 0.83-4.51 [facility] Activated partial thrombopla stin time (aPTT) in platelet poor plasma by coagulation aOrdered By: Daniel Mcneil on 04-24-2024 aPTT Coag (PPP) [Time] 24.8 s 24.1-36.2 [facility] Automated lymphocyte count a s percentage of total leukocytesOrdered By: Radha Khan on 04-24-2024 Lymphocytes/100 WBC Auto (Unsp spec) 14.4 % Low 19-41 [facility] Basic Metabolic Profile (BMP )on 04-24-2024 BUN/CRE 28.5 RATIO High 10-20 [facility] Comment on above: Order Comment: 'TROP ' Serial specimen #1, #2 or #3: 1 Performed By: #### L 500.2500, L300.3900, L300.4310, L100.0100, L501.4020 ####[facility] [address] [place], [address] CA,Total 8.9 mg/dL Normal 8.5-10.1 [facility] Comment on above: Order Comment: 'TROP ' Serial specimen #1, #2 or #3: 1 Performed By: #### L 500.2500, L300.3900, L300.4310, L100.0100, L501.4020 ####[facility] [address] [place], [address] Chloride [Moles/Vol] 106 mmol/L Normal 98-107 [facility] Comment on above: Order Comment: 'TROP ' Serial specimen #1, #2 or #3: 1 Performed By: #### L 500.2500, L300.3900, L300.4310, L100.0100, L501.4020 ####[facility] [address] [place], [address] CO2 [Moles/Vol] 27.0 mmol/L Normal 21.0-32.0 [facility] Comment on above: Order Comment: 'TROP ' Serial specimen #1, #2 or #3: 1 Performed By: #### L 500.2500, L300.3900, L300.4310, L100.0100, L501.4020 ####[facility] [address] [place], [address] Creatinine [Mass/Vol] 1.30 mg/dL Normal 0.70-1.[address] [facility] Comment on above: Order Comment: 'TROP ' Serial specimen #1, #2 or #3: 1 Result Comment: The validity of the calculated GFR GFRAA in patients over70 years has not been determined. Clinical correlation isessential. Performed By: #### L 500.2500, L300.3900, L300.4310, L100.0100, L501.4020 ####[facility] [address] [place], [address] ECRCL 84.56 ml/min Normal [facility] Comment on above: Order Comment: 'TROP ' Serial specimen #1, #2 or #3: 1 Performed By: #### L 500.2500, L300.3900, L300.4310, L100.0100, L501.4020 ####[facility] [address] [place], [address] EST GFR - AA 72 mL/min Normal >60 [facility] Comment on above: Order Comment: 'TROP ' Serial specimen #1, #2 or #3: 1 Result Comment: Afri can [place]ian GFR Calc Performed By: #### L 500.2500, L300.3900, L300.4310, L100.0100, L501.4020 ####[facility] [address] [place], [address] GAP 6 Normal 5-15 [facility] Comment on above: Order Comment: 'TROP ' Serial specimen #1, #2 or #3: 1 Performed By: #### L 500.2500, L300.3900, L300.4310, L100.0100, L501.4020 ####[facility] [address] [place], [address] GFR/1.73 sq M.predicted among non-blacks MDRD (S/P/Bld) [Vol rate/Area] 60 mL/min/{1.73_m2} Normal >60 [facility] Comment on above: Order Comment: 'TROP ' Serial specimen #1, #2 or #3: 1 Result Comment: Non- GFR Calc Performed By: #### L 500.2500, L300.3900, L300.4310, L100.0100, L501.4020 ####[facility] [address] [place], [address] Glucose [Mass/Vol] 81 mg/dL Normal 74-106 [facility] Comment on above: Order Comment: 'TROP ' Serial specimen #1, #2 or #3: 1 Performed By: #### L 500.2500, L300.3900, L300.4310, L100.0100, L501.4020 ####[facility] [address] [place], [address] Potassium [Moles/Vol] 4.2 mmol/L Normal 3.5-5.[address] [facility] Comment on above: Order Comment: 'TROP ' Serial specimen #1, #2 or #3: 1 Performed By: #### L 500.2500, L300.3900, L300.4310, L100.0100, L501.4020 ####[facility] [address] [place], [address] Sodium [Moles/Vol] 139 mmol/L Normal 136-145 [facility] Comment on above: Order Comment: 'TROP ' Serial specimen #1, #2 or #3: 1 Performed By: #### L 500.2500, L300.3900, L300.4310, L100.0100, L501.4020 ####[facility] [address] [place], [address] Urea nitrogen [Mass/Vol] 37 mg/dL High 7-18 [facility] Comment on above: Order Comment: 'TROP ' Serial specimen #1, #2 or #3: 1 Performed By: #### L 500.2500, L300.3900, L300.4310, L100.0100, L501.4020 ####[facility] [address] [place], [address] Basophil percentageOrdered B y: Radha Khan on 04-24-2024 Basophils/100 WBC (Bld) 0.4 % 0-1 [facility] CBC W/Diff, Automatedon 04-02 Anisocytosis Ql (Bld) 1+ Normal [facility] Comment on above: Performed By: #### L 100.0100, L100.9950, L503.6550, L503.0105, L503.6030 ####[facility] [address] [place], [address] HYPOCHROMASIA 1+ Normal [facility] Comment on above: Performed By: #### L 100.0100, L100.9950, L503.6550, L503.0105, L503.6030 ####[facility] [address] [place], [address] MICROCYTIC 1+ Normal [facility] Comment on above: Performed By: #### L 100.0100, L100.9950, L503.6550, L503.0105, L503.6030 ####[facility] [address] [place], [address] OVALOCYTE 1+ Normal [facility] Comment on above: Performed By: #### L 100.0100, L100.9950, L503.6550, L503.0105, L503.6030 ####[facility] [address] [place], [address] PLT EST ADEQUATE Normal ADEQ [facility] Comment on above: Performed By: #### L 100.0100, L100.9950, L503.6550, L503.0105, L503.6030 ####[facility] [address] [place], [address] RED CELL MORPH N CHROM Normal NORM C C [facility] Comment on above: Performed By: #### L 100.0100, L100.9950, L503.6550, L503.0105, L503.6030 ####[facility] [address] [place], [address] Anisocytosis Ql (Bld) 1+ Normal [facility] Comment on above: Performed By: #### L 500.2500, L300.3900, L300.4310, L100.0100, L501.4020 ####[facility] [address] [place], [address] HYPOCHROMASIA 1+ Normal [facility] Comment on above: Performed By: #### L 500.2500, L300.3900, L300.4310, L100.0100, L501.4020 ####[facility] [address] [place], [place], [phone] MICROCYTIC 1+ Normal [facility] Comment on above: Performed By: #### L 500.2500, L300.3900, L300.4310, L100.0100, L501.4020 ####[facility] [address] [place], [address] OVALOCYTE 1+ Normal [facility] Comment on above: Performed By: #### L 500.2500, L300.3900, L300.4310, L100.0100, L501.4020 ####[facility] [address] [place], [address] PLT EST ADEQUATE Normal ADEQ [facility] Comment on above: Performed By: #### L 500.2500, L300.3900, L300.4310, L100.0100, L501.4020 ####[facility] [address] [place], [address] RED CELL MORPH N CHROM Normal NORM C C [facility] Comment on above: Performed By: #### L 500.2500, L300.3900, L300.4310, L100.0100, L501.4020 ####[facility] [address] [place], [address] Chest 1 Viewon 04-24-2024 Chest 1 View Normal [facility] Emergency Department Summary on 04-24-2024 Emergency Department Summary Normal [facility] Eosinophil percentageOrdered By: Radha Khan on 04-24-2024 Eosinophils/100 WBC (Bld) 2.6 % 0-5 [facility] Erythrocyte distribution wid th ratioOrdered By: Radha Khan on 04-24-2024 Erythrocyte distribution width (RBC) [Ratio] 20.5 % High 11.6-14.6 [facility] Erythrocyte distribution wid th standard deviationOrdered By: Radha Khan on 04-24-2024 Erythrocyte distribution width (RBC) [Ratio] 56.2 fl High 35.1-43.9 [facility] Erythrocyte morphology asses smentOrdered By: Daniel Mcneil on 04-24-2024 RBC morphology finding Nom (Bld) N CHROM NORMAL NORM C&C [facility] Erythrocyte morphology asses smentOrdered By: Radha Khan on 04-24-2024 RBC morphology finding Nom (Bld) N CHROM NORMAL NORM C&C [facility] Ferritinon 04-24-2024 Ferritin [Mass/Vol] 102 ng/mL Normal 26-388 [facility] Comment on above: Performed By: #### L 100.0100, L100.9950, L503.6550, L503.0105, L503.6030 ####[facility] [address] [place], [address] H AND P Exam - Hospitaliston 04-24-2024 H&P Exam - Hospitalist Normal [facility] Hematocrit Auto (Bld) [Volum e fraction]Ordered By: Radha Khan on 04-24-2024 Hematocrit (Bld) [Volume fraction] 33.0 % Low 40-54 [facility] Hemoglobin measurementOrdere d By: Radha Khan on 04-24-2024 Hemoglobin (Bld) [Mass/Vol] 9.0 g/dL Low 13.0-16.5 [facility] Hypochromatic red blood cell detectionOrdered By: Daniel Mcneil on 04-24-2024 Hypochromia Ql (Bld) 1+ [facility] Hypochromatic red blood cell detectionOrdered By: Radha Khan on 04-24-2024 Hypochromia Ql (Bld) 1+ [facility] Immature granulocytes/100 WB C Auto (Bld)Ordered By: Radha Khan on 04-24-2024 Immature granulocytes/100 WBC (Bld) 0.700 % 0.0-0.9 [facility] Iron measurement (mass/mass) Ordered By: Radha Khan on 04-24-2024 Iron (Unsp spec) [Mass/Mass] 64 ug/dL Low 65-175 [facility] Iron+Iron Binding Capacityon 04-24-2024 Iron [Mass/Vol] 64 ug/dL Low 65-175 [facility] Comment on above: Performed By: #### L 100.0100, L100.9950, L503.6550, L503.0105, L503.6030 ####[facility] [address] [place], [address] IRON SATURATION 22.8 Normal 15.0-55.0 [facility] Comment on above: Performed By: #### L 100.0100, L100.9950, L503.6550, L503.0105, L503.6030 ####[facility] [address] [place], [place], [phone] TIBC 281 ug/dL Normal 250-450 [facility] Comment on above: Performed By: #### L 100.0100, L100.9950, L503.6550, L503.0105, L503.6030 ####[facility] [address] [place], [address] L501.4020on 04-24-2024 TROPONIN-I HS 106 pg/mL High 3.0-78.0 [facility] Comment on above: Order Comment: 'TROP ' Serial specimen #1, #2 or #3: 1 Result Comment: Kodi monterroso Note: New Test Units and Gender Specific Reference Ranges. For more information see Policy Stat Procedure [place] High Sensitivity Troponin (TNIH) and attachments. Performed By: #### L 501.4020 ####[facility] [address] [place], [address] TROPONIN-I HS 190 pg/mL Invalid Interpretation Code 3.0-78.0 [facility] Comment on above: Order Comment: 'TROP ' Serial specimen #1, #2 or #3: 1 Result Comment: Crit ical Result(s) Called at: 16:51:09 04/24/2024 by: SHERYL. Results read back by Stan RAMIREZ Please Note: New Test Units and Gender Specific Reference Ranges. For more information see Policy Stat Procedure [place] High Sensitivity Troponin (TNIH) and attachments. Performed By: #### L 500.2500, L300.3900, L300.4310, L100.0100, L501.4020 ####[facility] [address] [place], [address] MCV (mean corpuscular volume ) determinationOrdered By: Radha Khan on 04-24-2024 MCV (RBC) [Entitic vol] 77.6 fL Low 80-94 [facility] Magnesiumon 04-24-2024 Magnesium [Mass/Vol] 2.1 mg/dL Normal 1.6-2.6 [facility] Comment on above: Order Comment: Comme nts: may add to ED labs Performed By: #### L 501.5200 ####[facility] [address] [place], [address] Magnesium measurementOrdered By: Cookie Bell on 04-24-2024 Magnesium [Mass/Vol] 2.1 mg/dL 1.6-2.6 [facility] Mean corpuscular hemoglobin (MCH) determinationOrdered By: Radha Khan on 04-24-2024 MCH (RBC) [Entitic mass] 21.2 pg Low 27.0-32.0 [facility] Monocyte percentageOrdered B y: Radha Khan on 04-24-2024 Monocytes/100 WBC (Bld) 10.2 % High 0-10 [facility] Neutrophil percentageOrdered By: Radha Khan on 04-24-2024 Neutrophils/100 WBC (Bld) 71.7 % High 47-70 [facility] No Panel InformationOrdered By: Daniel Mcneil on 04-24-2024 1+ [facility] No Panel InformationOrdered By: Radha Khan on 04-24-2024 1+ [facility] Ovalocyte detectionOrdered B y: Daniel Mcneil on 04-24-2024 Ovalocytes LM Ql (Bld) 1+ [facility] Ovalocyte detectionOrdered B y: Radha Khan on 04-24-2024 Ovalocytes LM Ql (Bld) 1+ [facility] Partial Thromboplast Timeon 04-24-2024 aPTT Coag (Bld) [Time] 24.8 s Normal 24.1-36.2 [facility] Comment on above: Performed By: #### L 500.2500, L300.3900, L300.4310, L100.0100, L501.4020 ####[facility] [address] [place], [place], [id number] Platelet countOrdered By: Armen Khan on 04-24-2024 Platelets (Bld) [#/Vol] 361 10*3/uL 150-450 [facility] Platelet estimateOrdered By: Daniel Mcneil on 04-24-2024 Platelets LM Ql (Bld) ADEQUATE ADEQ [facility] Platelet estimateOrdered By: Radha Khan on 04-24-2024 Platelets LM Ql (Bld) ADEQUATE [facility] Prothrombin Time w/INRon INR Coag (PPP) [Relative time] 1.1 {INR} Normal [facility] Comment on above: Performed By: #### L 500.2500, L300.3900, L300.4310, L100.0100, L501.4020 ####[facility] [address] [place], [address] PT Coag (PPP) [Time] 14.4 s Normal 11.7-14.9 [facility] Comment on above: Performed By: #### L 500.2500, L300.3900, L300.4310, L100.0100, L501.4020 ####[facility] [address] [place], [address] Prothrombin timeOrdered By: Daniel Mcneil on 04-24-2024 PT Coag (PPP) [Time] 14.4 s 11.7-14.9 [facility] RBC Auto (Bld) [#/Vol]Ordere d By: Radha Khan on 04-24-2024 RBC (Bld) [#/Vol] 4.25 10*6/uL Low 4.6-6.2 [facility] Retic Panelon 04-24-2024 IM RET FRACTION 18.00 High 3.00-15.90 [facility] Comment on above: Performed By: #### L 100.0100, L100.9950, L503.6550, L503.0105, L503.6030 ####[facility] [address] [place], [address] RET-HE 26.3 pg Low 30-35 [facility] Comment on above: Performed By: #### L 100.0100, L100.9950, L503.6550, L503.0105, L503.6030 ####[facility] [address] [place], [address] Retic Count 1.99 High 0.5-1.5 [facility] Comment on above: Performed By: #### L 100.0100, L100.9950, L503.6550, L503.0105, L503.6030 ####[facility] [address] [place], [place], [id number] Reticulocyte hemoglobin equi valent (RET-He) measurementOrdered By: Radha Khan on 04-24-2024 Hemoglobin (Reticulocytes) [Entitic mass] 26.3 pg Low 30-35 [facility] Reticulocytes Auto (Bld) [#/ Vol]Ordered By: Radha Khan on 04-24-2024 Reticulocytes/100 RBC (Bld) 1.99 % High 0.5-1.5 [facility] STROKE Brain/Head without Co nton 04-24-2024 STROKE Brain/Head without Cont Normal [facility] STROKE CTA Head AND Neck W/C onon 04-24-2024 STROKE CTA Head AND Neck W/Con Normal [facility] Serum or plasma iron saturat ion measurement (mass fraction)Ordered By: Radha Khan on 04-24-2024 Iron saturation [Mass fraction] 22.8 % 15.0-55.0 [facility] Vitamin B12 measurementOrder ed By: Radha Khan on 04-24-2024 Cobalamin (Vitamin B12) [Mass/Vol] 572 pg/mL 211-911 [facility] White blood cell (WBC) count Ordered By: Radha Khan on 04-24-2024 WBC (Bld) [#/Vol] 14.1 10*3/uL High 4.4-11.0 [facility] 36on 04-22-2024 36 LVM to let patient k now he is scheduled for surgery and to call back to go over presurgical instructions Normal [facility] 36 Call ref# [id number] 000. No Prior authorization needed for inpatient 24 hour observation. Normal [facility] Pulmonary Visit Reporton Pulmonary Visit Report Normal [facility] Culture, Blood (WB)on 2024 CUB Blood cultures x2, f rom two different sites No growth in 5 days. Normal [facility] Comment on above: Performed By: #### M 200.1000, M100.636 ####[facility] [address] [place], [address] Endocrinology Visit Reporton 04-16-2024 Endocrinology Visit Report Normal [facility] No Panel Informationon 04-16 7.7 % High 4.2-6.3 [facility] Absolute lymphocyte countOrd ered By: Cuco Soler on 04-15-2024 Lymphocytes Auto (Unsp spec) [#/Vol] 0.77 10*3/uL Low 0.83-4.51 [facility] Automated lymphocyte count a s percentage of total leukocytesOrdered By: Cuco Soler on 04-15-2024 Lymphocytes/100 WBC Auto (Unsp spec) 7.0 % Low 19-41 [facility] Basic Metabolic Profile (BMP )on 04-15-2024 BUN/CRE 29.8 RATIO High 10-20 [facility] Comment on above: Performed By: #### L 100.0100, L500.2500 ####[facility] [address] [place], [address] CA,Total 9.4 mg/dL Normal 8.5-10.1 [facility] Comment on above: Performed By: #### L 100.0100, L500.2500 ####[facility] [address] [place], [address] Chloride [Moles/Vol] 103 mmol/L Normal 98-107 [facility] Comment on above: Performed By: #### L 100.0100, L500.2500 ####[facility] [address] [place], [address] CO2 [Moles/Vol] 24.0 mmol/L Normal 21.0-32.0 [facility] Comment on above: Performed By: #### L 100.0100, L500.2500 ####[facility] [address] [place], [address] Creatinine [Mass/Vol] 1.14 mg/dL Normal 0.70-1.[address] [facility] Comment on above: Result Comment: The validity of the calculated GFR GFRAA in patients over70 years has not been determined. Clinical correlation isessential. Performed By: #### L 100.0100, L500.2500 ####[facility] [address] [place], [address] ECRCL 94.72 ml/min Normal [facility] Comment on above: Performed By: #### L 100.0100, L500.2500 ####[facility] [address] [place], [address] EST GFR - AA 84 mL/min Normal >60 [facility] Comment on above: Result Comment: Afri can [place]ian GFR Calc Performed By: #### L 100.0100, L500.2500 ####[facility] [address] [place], [address] GAP 8 Normal 5-15 [facility] Comment on above: Performed By: #### L 100.0100, L500.2500 ####[facility] [address] [place], [address] GFR/1.73 sq M.predicted among non-blacks MDRD (S/P/Bld) [Vol rate/Area] 70 mL/min/{1.73_m2} Normal >60 [facility] Comment on above: Result Comment: Non- GFR Calc Performed By: #### L 100.0100, L500.2500 ####[facility] [address] [place], [address] Glucose [Mass/Vol] 154 mg/dL High 74-106 [facility] Comment on above: Result Comment: Fast ing Glucose result greater than or equal to 126 mg/dLsuggests DIABETES MELLITUS per A.D.A. criteria. Performed By: #### L 100.0100, L500.2500 ####[facility] [address] [place], [address] Potassium [Moles/Vol] 4.4 mmol/L Normal 3.5-5.[address] [facility] Comment on above: Performed By: #### L 100.0100, L500.2500 ####[facility] [address] [place], [address] Sodium [Moles/Vol] 135 mmol/L Low 136-145 [facility] Comment on above: Performed By: #### L 100.0100, L500.2500 ####[facility] [address] [place], [address] Urea nitrogen [Mass/Vol] 34 mg/dL High 7-18 [facility] Comment on above: Performed By: #### L 100.0100, L500.2500 ####[facility] [address] [place], [address] Basophil percentageOrdered B y: Cucogemini Soler on 04-15-2024 Basophils/100 WBC (Bld) 0.1 % 0-1 [facility] CBC W/Diff, Automatedon - Absolute Lymph 0.77 X10 3/uL Low 0.83-4.51 [facility] Comment on above: Performed By: #### L 100.0100, L500.2500 ####[facility] [address] [place], [address] Absolute Neut 9.9 X10 3/uL High 2.0-7.7 [facility] Comment on above: Performed By: #### L 100.0100, L500.2500 ####[facility] [address] [place], [address] Basophils/100 WBC (Bld) 0.1 % Normal 0-1 [facility] Comment on above: Performed By: #### L 100.0100, L500.2500 ####[facility] [address] [place], [address] Eosinophils/100 WBC (Bld) 0.1 % Normal 0-5 [facility] Comment on above: Performed By: #### L 100.0100, L500.2500 ####[facility] [address] [place], [address] Erythrocyte distribution width (RBC) [Ratio] 19.6 % High 11.6-14.6 [facility] Comment on above: Performed By: #### L 100.0100, L500.2500 ####[facility] [address] [place], [address] Hematocrit (Bld) [Volume fraction] 28.9 % Low 40-54 [facility] Comment on above: Performed By: #### L 100.0100, L500.2500 ####[facility] [address] [place], [address] Hemoglobin (Bld) [Mass/Vol] 8.5 g/dL Low 13.0-16.5 [facility] Comment on above: Performed By: #### L 100.0100, L500.2500 ####[facility] [address] [place], [address] IG% 0.600 Normal 0.0-0.9 [facility] Comment on above: Result Comment: IG% - Immature Granulocytes (promyelocytes, myelocytes andmetamyelocytes) > 1% indicates that a LEFT SHIFT is Present. Performed By: #### L 100.0100, L500.2500 ####[facility] [address] [place], [address] Lymphocytes/100 WBC (Bld) 7.0 % Low 19-41 [facility] Comment on above: Performed By: #### L 100.0100, L500.2500 ####[facility] [address] [place], [address] MCH (RBC) [Entitic mass] 21.8 pg Low 27.0-32.0 [facility] Comment on above: Performed By: #### L 100.0100, L500.2500 ####[facility] [address] [place], [address] MCHC (RBC) [Mass/Vol] 29.4 g/dL Low 32-[address] [facility] Comment on above: Performed By: #### L 100.0100, L500.2500 ####[facility] [address] [place], [address] MCV (RBC) [Entitic vol] 74.1 fL Low 80-94 [facility] Comment on above: Performed By: #### L 100.0100, L500.2500 ####[facility] [address] [place], [address] Monocytes/100 WBC (Bld) 2.4 % Normal 0-10 [facility] Comment on above: Performed By: #### L 100.0100, L500.2500 ####[facility] [address] [place], [address] Neutrophils/100 WBC (Bld) 89.8 % High 47-70 [facility] Comment on above: Performed By: #### L 100.0100, L500.2500 ####[facility] [facility] [address] [place], [address] Nucleated RBC (Bld) [#/Vol] 0 10*3/uL Normal 0-5 [facility] Comment on above: Performed By: #### L 100.0100, L500.2500 ####[facility] [address] [place], [address] Platelet mean volume (Bld) [Entitic vol] 9.8 fL Normal 6.2-12.0 [facility] Comment on above: Performed By: #### L 100.0100, L500.2500 ####[facility] [address] [place], [address] Platelets (Bld) [#/Vol] 341 10*3/uL Normal 150-450 [facility] Comment on above: Performed By: #### L 100.0100, L500.2500 ####[facility] [address] [place], [address] RBC (Bld) [#/Vol] 3.90 10*6/uL Low 4.6-6.2 [facility] Comment on above: Performed By: #### L 100.0100, L500.2500 ####[facility] [address] [place], [address] RDW SD 52.3 fl High 35.1-43.9 [facility] Comment on above: Performed By: #### L 100.0100, L500.2500 ####[facility] [address] [place], [address] WBC (Bld) [#/Vol] 11.0 10*3/uL Normal 4.4-11.0 [facility] Comment on above: Performed By: #### L 100.0100, L500.2500 ####[facility] [address] [place], [address] Carbon dioxide measurementOr dered By: Cuco Soler on 04-15-2024 CO2 [Moles/Vol] 24.0 mmol/L 21.0-32.0 [facility] Chloride measurementOrdered By: Cuco Soler on 04-15-2024 Chloride [Moles/Vol] 103 mmol/L 98-107 [facility] Discharge Instructionon 04-01 Discharge Instruction Normal [facility] Eosinophil percentageOrdered By: Cuco Soler on 04-15-2024 Eosinophils/100 WBC (Bld) 0.1 % 0-5 [facility] Erythrocyte distribution wid th ratioOrdered By: Cuco Soler on 04-15-2024 Erythrocyte distribution width (RBC) [Ratio] 19.6 % High 11.6-14.6 [facility] Erythrocyte distribution wid th standard deviationOrdered By: Cuco Soler on 04-15-2024 Erythrocyte distribution width (RBC) [Ratio] 52.3 fl High 35.1-43.9 [facility] Glomerular filtration rate ( GFR) estimationOrdered By: Cuco Soler on 04-15-2024 GFR/1.73 sq M.predicted among non-blacks MDRD (S/P/Bld) [Vol rate/Area] 70 mL/min/{1.73_m2} >60 [facility] Glucose measurementOrdered B y: Cuco Soler on 04-15-2024 Glucose [Mass/Vol] 154 mg/dL High 74-106 [facility] Hematocrit Auto (Bld) [Volum e fraction]Ordered By: Cuco Soler on 04-15-2024 Hematocrit (Bld) [Volume fraction] 28.9 % Low 40-54 [facility] Hemoglobin measurementOrdere d By: Cuco Soler on 04-15-2024 Hemoglobin (Bld) [Mass/Vol] 8.5 g/dL Low 13.0-16.5 [facility] Immature granulocytes/100 WB C Auto (Bld)Ordered By: Cuco Soler on 04-15-2024 Immature granulocytes/100 WBC (Bld) 0.600 % 0.0-0.9 [facility] MCV (mean corpuscular volume ) determinationOrdered By: Cuco Soler on 04-15-2024 MCV (RBC) [Entitic vol] 74.1 fL Low 80-94 [facility] Mean corpuscular hemoglobin (MCH) determinationOrdered By: Cuco Soler on 04-15-2024 MCH (RBC) [Entitic mass] 21.8 pg Low 27.0-32.0 [facility] Monocyte percentageOrdered B y: Cuco Soler on 04-15-2024 Monocytes/100 WBC (Bld) 2.4 % 0-10 [facility] Neutrophil percentageOrdered By: Cuco Soler on 04-15-2024 Neutrophils/100 WBC (Bld) 89.8 % High 47-70 [facility] Platelet countOrdered By: Joselito Soler on 04-15-2024 Platelets (Bld) [#/Vol] 341 10*3/uL 150-450 [facility] Potassium measurementOrdered By: Cuco Soler on 04-15-2024 Potassium [Moles/Vol] 4.4 mmol/L 3.5-5.[address] [facility] RBC Auto (Bld) [#/Vol]Ordere d By: Cuco Soler on 04-15-2024 RBC (Bld) [#/Vol] 3.90 10*6/uL Low 4.6-6.2 [facility] Serum or plasma calcium grazyna urement (mass/volume)Ordered By: Cuco Soler on 04-15-2024 Calcium [Mass/Vol] 9.4 mg/dL 8.5-10.1 [facility] Serum or plasma creatinine m easurement (mass/volume)Ordered By: Cuco Soler on 04-15-2024 Creatinine [Mass/Vol] 1.14 mg/dL 0.70-1.[address] [facility] Serum or plasma urea nitroge n measurement (mass/volume)Ordered By: Cuco Soler on 04-15-2024 Urea nitrogen [Mass/Vol] 34 mg/dL High 7-18 [facility] Sodium levelOrdered By: Caitie Soler on 04-15-2024 Sodium [Moles/Vol] 135 mmol/L Low 136-145 [facility] White blood cell (WBC) count Ordered By: Cuco Soler on 04-15-2024 WBC (Bld) [#/Vol] 11.0 10*3/uL 4.4-11.0 [facility] GPC IDon 04-14-2024 GPC ID Normal [facility] Comment on above: Performed By: #### M 200.1000, M100.636 ####[facility] [address] [place], [address] Basic Metabolic Profile (BMP )on 04-14-2024 BUN/CRE 20.1 RATIO High 10-20 [facility] Comment on above: Performed By: #### L 100.0100, L501.5200, L500.2500, L500.3400, L501.2300 ####[facility] [address] [place], [address] CA,Total 9.0 mg/dL Normal 8.5-10.1 [facility] Comment on above: Performed By: #### L 100.0100, L501.5200, L500.2500, L500.3400, L501.2300 ####[facility] [address] [place], [address] Chloride [Moles/Vol] 100 mmol/L Normal 98-107 [facility] Comment on above: Performed By: #### L 100.0100, L501.5200, L500.2500, L500.3400, L501.2300 ####[facility] [address] [place], [address] CO2 [Moles/Vol] 26.0 mmol/L Normal 21.0-32.0 [facility] Comment on above: Performed By: #### L 100.0100, L501.5200, L500.2500, L500.3400, L501.2300 ####[facility] [address] [place], [address] Creatinine [Mass/Vol] 1.49 mg/dL High 0.70-1.[address] [facility] Comment on above: Result Comment: The validity of the calculated GFR GFRAA in patients over70 years has not been determined. Clinical correlation isessential. Performed By: #### L 100.0100, L501.5200, L500.2500, L500.3400, L501.2300 ####[facility] [address] [place], [address] ECRCL 73.51 ml/min Normal [facility] Comment on above: Performed By: #### L 100.0100, L501.5200, L500.2500, L500.3400, L501.2300 ####[facility] [address] [place], [address] EST GFR - AA 62 mL/min Normal >60 [facility] Comment on above: Result Comment: Afri can [place]ian GFR Calc Performed By: #### L 100.0100, L501.5200, L500.2500, L500.3400, L501.2300 ####[facility] [address] [place], [address] GAP 6 Normal 5-15 [facility] Comment on above: Performed By: #### L 100.0100, L501.5200, L500.2500, L500.3400, L501.2300 ####[facility] [address] [place], [address] GFR/1.73 sq M.predicted among non-blacks MDRD (S/P/Bld) [Vol rate/Area] 51 mL/min/{1.73_m2} Low >60 [facility] Comment on above: Result Comment: Non- GFR Calc Performed By: #### L 100.0100, L501.5200, L500.2500, L500.3400, L501.2300 ####[facility] [address] [place], [address] Glucose [Mass/Vol] 272 mg/dL High 74-106 [facility] Comment on above: Result Comment: Gluc ose result greater than or equal to 200 mg/dLsuggests DIABETES MELLITUS per A.D.A. criteria. Performed By: #### L 100.0100, L501.5200, L500.2500, L500.3400, L501.2300 ####[facility] [address] [place], [address] Potassium [Moles/Vol] 4.0 mmol/L Normal 3.5-5.[address] [facility] Comment on above: Performed By: #### L 100.0100, L501.5200, L500.2500, L500.3400, L501.2300 ####[facility] [address] [place], [address] Sodium [Moles/Vol] 132 mmol/L Low 136-145 [facility] Comment on above: Performed By: #### L 100.0100, L501.5200, L500.2500, L500.3400, L501.2300 ####[facility] [address] [place], [address] Urea nitrogen [Mass/Vol] 30 mg/dL High 7-18 [facility] Comment on above: Performed By: #### L 100.0100, L501.5200, L500.2500, L500.3400, L501.2300 ####[facility] [address] [place], [address] Bedside Glucoseon 04-14-2024 FINGERSTICK GLU 259 mg/dL High 74-106 [facility] Comment on above: Result Comment: ANI BRADFORD OF PATIENT CARE PER NURSING PROTOCOL Performed By: #### L 501.080 ####[facility] [address] [place], [address] Bilirubin directOrdered By: Cuco Soler on 04-14-2024 Bilirubin.direct [Mass/Vol] 0.20 mg/dL 0.00-0.30 [facility] Bilirubin, totalOrdered By: Cuco Soler on 04-14-2024 Bilirubin [Mass/Vol] 0.80 mg/dL 0.20-1.00 [facility] CBC W/Diff, Automatedon 04-01 Absolute Lymph 0.42 X10 3/uL Low 0.83-4.51 [facility] Comment on above: Performed By: #### L 100.0100, L501.5200, L500.2500, L500.3400, L501.2300 ####[facility] [address] [place], [address] Absolute Neut 7.9 X10 3/uL High 2.0-7.7 [facility] Comment on above: Performed By: #### L 100.0100, L501.5200, L500.2500, L500.3400, L501.2300 ####[facility] [address] [place], [address] Basophils/100 WBC (Bld) 0.2 % Normal 0-1 [facility] Comment on above: Performed By: #### L 100.0100, L501.5200, L500.2500, L500.3400, L501.2300 ####[facility] [address] [place], [address] Eosinophils/100 WBC (Bld) 0.0 % Normal 0-5 [facility] Comment on above: Performed By: #### L 100.0100, L501.5200, L500.2500, L500.3400, L501.2300 ####[facility] [address] [place], [address] Erythrocyte distribution width (RBC) [Ratio] 19.9 % High 11.6-14.6 [facility] Comment on above: Performed By: #### L 100.0100, L501.5200, L500.2500, L500.3400, L501.2300 ####[facility] [address] [place], [address] Hematocrit (Bld) [Volume fraction] 28.7 % Low 40-54 [facility] Comment on above: Performed By: #### L 100.0100, L501.5200, L500.2500, L500.3400, L501.2300 ####[facility] [address] [place], [address] Hemoglobin (Bld) [Mass/Vol] 8.4 g/dL Low 13.0-16.5 [facility] Comment on above: Performed By: #### L 100.0100, L501.5200, L500.2500, L500.3400, L501.2300 ####[facility] [address] [place], [address] IG% 0.500 Normal 0.0-0.9 [facility] Comment on above: Result Comment: IG% - Immature Granulocytes (promyelocytes, myelocytes andmetamyelocytes) > 1% indicates that a LEFT SHIFT is Present. Performed By: #### L 100.0100, L501.5200, L500.2500, L500.3400, L501.2300 ####[facility] [address] [place], [address] Lymphocytes/100 WBC (Bld) 4.9 % Low 19-41 [facility] Comment on above: Performed By: #### L 100.0100, L501.5200, L500.2500, L500.3400, L501.2300 ####[facility] [address] [place], [address] MCH (RBC) [Entitic mass] 21.8 pg Low 27.0-32.0 [facility] Comment on above: Performed By: #### L 100.0100, L501.5200, L500.2500, L500.3400, L501.2300 ####[facility] [address] [place], [address] MCHC (RBC) [Mass/Vol] 29.3 g/dL Low 32-[address] [facility] Comment on above: Performed By: #### L 100.0100, L501.5200, L500.2500, L500.3400, L501.2300 ####[facility] [address] [place], [address] MCV (RBC) [Entitic vol] 74.4 fL Low 80-94 [facility] Comment on above: Performed By: #### L 100.0100, L501.5200, L500.2500, L500.3400, L501.2300 ####[facility] [address] [place], [address] Monocytes/100 WBC (Bld) 1.9 % Normal 0-10 [facility] Comment on above: Performed By: #### L 100.0100, L501.5200, L500.2500, L500.3400, L501.2300 ####[facility] [address] [place], [address] Neutrophils/100 WBC (Bld) 92.5 % High 47-70 [facility] Comment on above: Performed By: #### L 100.0100, L501.5200, L500.2500, L500.3400, L501.2300 ####[facility] [address] [place], [address] Nucleated RBC (Bld) [#/Vol] 0.2 10*3/uL Normal 0-5 [facility] Comment on above: Performed By: #### L 100.0100, L501.5200, L500.2500, L500.3400, L501.2300 ####[facility] [address] [place], [address] Platelet mean volume (Bld) [Entitic vol] 10.0 fL Normal 6.2-12.0 [facility] Comment on above: Performed By: #### L 100.0100, L501.5200, L500.2500, L500.3400, L501.2300 ####[facility] [address] [place], [address] Platelets (Bld) [#/Vol] 322 10*3/uL Normal 150-450 [facility] Comment on above: Performed By: #### L 100.0100, L501.5200, L500.2500, L500.3400, L501.2300 ####[facility] [address] [place], [address] RBC (Bld) [#/Vol] 3.86 10*6/uL Low 4.6-6.2 [facility] Comment on above: Performed By: #### L 100.0100, L501.5200, L500.2500, L500.3400, L501.2300 ####[facility] [address] [place], [address] RDW SD 53.1 fl High 35.1-43.9 [facility] Comment on above: Performed By: #### L 100.0100, L501.5200, L500.2500, L500.3400, L501.2300 ####[facility] [address] [place], [address] WBC (Bld) [#/Vol] 8.6 10*3/uL Normal 4.4-11.0 [facility] Comment on above: Performed By: #### L 100.0100, L501.5200, L500.2500, L500.3400, L501.2300 ####[facility] [address] [place], [address] Consultation - Intensiviston 04-14-2024 Consultation - Equine Vet Normal [facility] Echo, Limited Studyon 2024 Echo, Limited Study Normal [facility] Gl[facility] at [facility] deOrdered By: Cuco Soler on 04-14-2024 Glucose [Mass/Vol] 259 mg/dL High 74-106 [facility] Liver Profileon 04-14-2024 Albumin [Mass/Vol] 2.7 g/dL Low 3.2-5.0 [facility] Comment on above: Performed By: #### L 100.0100, L501.5200, L500.2500, L500.3400, L501.2300 ####[facility] [address] [place], [address] ALK P 77 U/L Normal 45-117 [facility] Comment on above: Performed By: #### L 100.0100, L501.5200, L500.2500, L500.3400, L501.2300 ####[facility] [address] [place], [address] ALT [Catalytic activity/Vol] 19 U/L Normal 16-61 [facility] Comment on above: Performed By: #### L 100.0100, L501.5200, L500.2500, L500.3400, L501.2300 ####[facility] [address] [place], [address] AST [Catalytic activity/Vol] 16 U/L Normal 15-37 [facility] Comment on above: Performed By: #### L 100.0100, L501.5200, L500.2500, L500.3400, L501.2300 ####[facility] [address] [place], [address] Bilirubin [Mass/Vol] 0.80 mg/dL Normal 0.20-1.00 [facility] Comment on above: Result Comment: For patients on eltrombopag therapy, use of Dimension [place] TBIL is not recommended. Performed By: #### L 100.0100, L501.5200, L500.2500, L500.3400, L501.2300 ####[facility] [address] [place], [address] Bilirubin.direct [Mass/Vol] 0.20 mg/dL Normal 0.00-0.30 [facility] Comment on above: Performed By: #### L 100.0100, L501.5200, L500.2500, L500.3400, L501.2300 ####[facility] [address] [place], [address] Globulin (S) [Mass/Vol] 5.6 g/dL High 2.2-4.2 [facility] Comment on above: Performed By: #### L 100.0100, L501.5200, L500.2500, L500.3400, L501.2300 ####[facility] [address] [place], [address] T PROT 8.3 g/dL High 6.4-8.2 [facility] Comment on above: Performed By: #### L 100.0100, L501.5200, L500.2500, L500.3400, L501.2300 ####[facility] [address] [place], [address] M8200.1000on 04-14-2024 M8200.1000 Normal Reference Ran ge = Negative MRSA DNA Nose Ql FLORES+probe GeneXpert Instrument, PCR method MRSA PCR MRSA NEGATIVE Normal [facility] Comment on above: Performed By: #### M 8200.1000, M300.4600 ####[facility] [address] [place], [address] Magnesiumon 04-14-2024 Magnesium [Mass/Vol] 2.5 mg/dL Normal 1.6-2.6 [facility] Comment on above: Performed By: #### L 100.0100, L501.5200, L500.2500, L500.3400, L501.2300 ####[facility] [address] [place], [address] Magnesium measurementOrdered By: Cuco Soler on 04-14-2024 Magnesium [Mass/Vol] 2.5 mg/dL 1.6-2.6 [facility] Nasal methicillin resistant Staphylococcus aureus (MRSA) DNA detection by PCROrdered By: Cuco Soler on 04-14-2024 MRSA DNA FLORES+probe Ql (Nose) [facility] No Panel InformationOrdered By: Cuco Soler on 04-14-2024 16 U/L 15-37 [facility] Phosphoruson 04-14-2024 Phosphate [Mass/Vol] 4.4 mg/dL Normal 2.5-4.9 [facility] Comment on above: Performed By: #### L 100.0100, L501.5200, L500.2500, L500.3400, L501.2300 ####[facility] [address] [place], [address] Procalcitoninon 04-14-2024 Procalcitonin 0.18 ng/mL High 0.00-0.09 [facility] Comment on above: Result Comment: A [...] are obtained. Performed By: #### L 509.7000 ####[facility] [address] [place], [address] Serum globulin measurementOr dered By: Cuco Soler on 04-14-2024 Globulin (S) [Mass/Vol] 5.6 g/dL High 2.2-4.2 [facility] Serum or plasma alanine briscoe otransferase (ALT) measurementOrdered By: Cuco Soler on 04-14-2024 ALT [Catalytic activity/Vol] 19 U/L 16-61 [facility] Serum or plasma albumin grazyna urement (mass/volume)Ordered By: Cuco Soler on 04-14-2024 Albumin [Mass/Vol] 2.7 g/dL Low 3.2-5.0 [facility] Serum or plasma alkaline benjamin sphatase measurementOrdered By: Cuco Soler on 04-14-2024 ALP [Catalytic activity/Vol] 77 U/L 45-117 [facility] Serum procalcitonin measurem entOrdered By: Fran Rodriguez on 04-14-2024 Procalcitonin [Mass/Vol] 0.18 ng/mL High 0.00-0.09 [facility] Strep pneumoniae Antig(UR,CS F)on 04-14-2024 STPAG Normal [facility] Comment on above: Performed By: #### M 8200.1000, M300.4600 ####[facility] [address] [place], [address] Total proteinOrdered By: Wilder geminifred Soler on 04-14-2024 Protein [Mass/Vol] 8.3 g/dL High 6.4-8.2 [facility] 6 Minute Walk Teston 025 6 Minute Walk Test Normal [facility] Basic Metabolic Profile (BMP )on 04-13-2024 BUN/CRE 17.1 RATIO Normal 10-20 [facility] Comment on above: Performed By: #### L 501.5200, L500.2500, L501.2300, L100.0100 ####[facility] [address] [place], [address] CA,Total 8.9 mg/dL Normal 8.5-10.1 [facility] Comment on above: Performed By: #### L 501.5200, L500.2500, L501.2300, L100.0100 ####[facility] [address] [place], [address] Chloride [Moles/Vol] 101 mmol/L Normal 98-107 [facility] Comment on above: Performed By: #### L 501.5200, L500.2500, L501.2300, L100.0100 ####[facility] [address] [place], [address] CO2 [Moles/Vol] 27.0 mmol/L Normal 21.0-32.0 [facility] Comment on above: Performed By: #### L 501.5200, L500.2500, L501.2300, L100.0100 ####[facility] [address] [place], [address] Creatinine [Mass/Vol] 1.17 mg/dL Normal 0.70-1.[address] [facility] Comment on above: Result Comment: The validity of the calculated GFR GFRAA in patients over70 years has not been determined. Clinical correlation isessential. Performed By: #### L 501.5200, L500.2500, L501.2300, L100.0100 ####[facility] [address] [place], [address] ECRCL 93.62 ml/min Normal [facility] Comment on above: Performed By: #### L 501.5200, L500.2500, L501.2300, L100.0100 ####[facility] [address] [place], [address] EST GFR - AA 82 mL/min Normal >60 [facility] Comment on above: Result Comment: Afri can [place] GFR Calc Performed By: #### L 501.5200, L500.2500, L501.2300, L100.0100 ####[facility] [address] [place], [address] GAP 6 Normal 5-15 [facility] Comment on above: Performed By: #### L 501.5200, L500.2500, L501.2300, L100.0100 ####[facility] [address] [place], [address] GFR/1.73 sq M.predicted among non-blacks MDRD (S/P/Bld) [Vol rate/Area] 67 mL/min/{1.73_m2} Normal >60 [facility] Comment on above: Result Comment: Non- GFR Calc Performed By: #### L 501.5200, L500.2500, L501.2300, L100.0100 ####[facility] [address] [place], [address] Glucose [Mass/Vol] 193 mg/dL High 74-106 [facility] Comment on above: Result Comment: Fast ing Glucose result greater than or equal to 126 mg/dLsuggests DIABETES MELLITUS per A.D.A. criteria. Performed By: #### L 501.5200, L500.2500, L501.2300, L100.0100 ####[facility] [address] [place], [address] Potassium [Moles/Vol] 3.6 mmol/L Normal 3.5-5.[address] [facility] Comment on above: Performed By: #### L 501.5200, L500.2500, L501.2300, L100.0100 ####[facility] [address] [place], [address] Sodium [Moles/Vol] 134 mmol/L Low 136-145 [facility] Comment on above: Performed By: #### L 501.5200, L500.2500, L501.2300, L100.0100 ####[facility] [address] [place], [address] Urea nitrogen [Mass/Vol] 20 mg/dL High 7-18 [facility] Comment on above: Performed By: #### L 501.5200, L500.2500, L501.2300, L100.0100 ####[facility] [address] [place], [address] Bedside Glucoseon 04-13-2024 FINGERSTICK GLU 190 mg/dL High 74-106 [facility] Comment on above: Result Comment: ANI BRADFORD OF PATIENT CARE PER NURSING PROTOCOL Performed By: #### L 501.080 ####[facility] [address] [place], [address] CBC W/Diff, Automatedon 04-01 Absolute Lymph 1.53 X10 3/uL Normal 0.83-4.51 [facility] Comment on above: Performed By: #### L 501.5200, L500.2500, L501.2300, L100.0100 ####[facility] [address] [place], [address] Absolute Neut 7.3 X10 3/uL Normal 2.0-7.7 [facility] Comment on above: Performed By: #### L 501.5200, L500.2500, L501.2300, L100.0100 ####[facility] [address] [place], [address] Basophils/100 WBC (Bld) 0.5 % Normal 0-1 [facility] Comment on above: Performed By: #### L 501.5200, L500.2500, L501.2300, L100.0100 ####[facility] [address] [place], [address] Eosinophils/100 WBC (Bld) 3.7 % Normal 0-5 [facility] Comment on above: Performed By: #### L 501.5200, L500.2500, L501.2300, L100.0100 ####[facility] [address] [place], [address] Erythrocyte distribution width (RBC) [Ratio] 19.9 % High 11.6-14.6 [facility] Comment on above: Performed By: #### L 501.5200, L500.2500, L501.2300, L100.0100 ####[facility] [address] [place], [address] Hematocrit (Bld) [Volume fraction] 26.7 % Low 40-54 [facility] Comment on above: Performed By: #### L 501.5200, L500.2500, L501.2300, L100.0100 ####[facility] [address] [place], [address] Hemoglobin (Bld) [Mass/Vol] 7.7 g/dL Low 13.0-16.5 [facility] Comment on above: Performed By: #### L 501.5200, L500.2500, L501.2300, L100.0100 ####[facility] [address] [place], [address] IG% 0.300 Normal 0.0-0.9 [facility] Comment on above: Result Comment: IG% - Immature Granulocytes (promyelocytes, myelocytes andmetamyelocytes) > 1% indicates that a LEFT SHIFT is Present. Performed By: #### L 501.5200, L500.2500, L501.2300, L100.0100 ####[facility] [address] [place], [address] Lymphocytes/100 WBC (Bld) 14.9 % Low 19-41 [facility] Comment on above: Performed By: #### L 501.5200, L500.2500, L501.2300, L100.0100 ####[facility] [address] [place], [address] MCH (RBC) [Entitic mass] 21.6 pg Low 27.0-32.0 [facility] Comment on above: Performed By: #### L 501.5200, L500.2500, L501.2300, L100.0100 ####[facility] [address] [place], [address] MCHC (RBC) [Mass/Vol] 28.8 g/dL Low 32-[address] [facility] Comment on above: Performed By: #### L 501.5200, L500.2500, L501.2300, L100.0100 ####[facility] [address] [place], [address] MCV (RBC) [Entitic vol] 74.8 fL Low 80-94 [facility] Comment on above: Performed By: #### L 501.5200, L500.2500, L501.2300, L100.0100 ####[facility] [address] [place], [address] Monocytes/100 WBC (Bld) 9.8 % Normal 0-10 [facility] Comment on above: Performed By: #### L 501.5200, L500.2500, L501.2300, L100.0100 ####[facility] [address] [place], [address] Neutrophils/100 WBC (Bld) 70.8 % High 47-70 [facility] Comment on above: Performed By: #### L 501.5200, L500.2500, L501.2300, L100.0100 ####[facility] [address] [place], [address] Nucleated RBC (Bld) [#/Vol] 0 10*3/uL Normal 0-5 [facility] Comment on above: Performed By: #### L 501.5200, L500.2500, L501.2300, L100.0100 ####[facility] [address] [place], [address] Platelet mean volume (Bld) [Entitic vol] 9.6 fL Normal 6.2-12.0 [facility] Comment on above: Performed By: #### L 501.5200, L500.2500, L501.2300, L100.0100 ####[facility] [address] [place], [address] Platelets (Bld) [#/Vol] 289 10*3/uL Normal 150-450 [facility] Comment on above: Performed By: #### L 501.5200, L500.2500, L501.2300, L100.0100 ####[facility] [address] [place], [address] RBC (Bld) [#/Vol] 3.57 10*6/uL Low 4.6-6.2 [facility] Comment on above: Performed By: #### L 501.5200, L500.2500, L501.2300, L100.0100 ####[facility] [address] [place], [address] RDW SD 53.8 fl High 35.1-43.9 [facility] Comment on above: Performed By: #### L 501.5200, L500.2500, L501.2300, L100.0100 ####[facility] [address] [place], [address] WBC (Bld) [#/Vol] 10.3 10*3/uL Normal 4.4-11.0 [facility] Comment on above: Performed By: #### L 501.5200, L500.2500, L501.2300, L100.0100 ####[facility] [address] [place], [address] Chest without Contraston Chest without Contrast Normal [facility] Legionella Antigen Urineon 0 04-13-2024 LEGU Normal [facility] Comment on above: Performed By: #### M 300.4500 ####[facility] [address] [place], [address] Magnesiumon 04-13-2024 Magnesium [Mass/Vol] 2.3 mg/dL Normal 1.6-2.6 [facility] Comment on above: Performed By: #### L 501.5200, L500.2500, L501.2300, L100.0100 ####[facility] [address] [place], [address] Phosphoruson 04-13-2024 Phosphate [Mass/Vol] 4.4 mg/dL Normal 2.5-4.9 [facility] Comment on above: Performed By: #### L 501.5200, L500.2500, L501.2300, L100.0100 ####[facility] [address] [place], [address] RESPIRATORY PANEL MOLECULARo n 04-13-2024 RP PANEL Normal [facility] Comment on above: Performed By: #### M 100.638 ####[facility] [address] [place], [address] Respiratory pathogens detect ion panel by molecular detection methodOrdered By: Cuco Soler on 04-13-2024 Respiratory pathogens DNA and RNA panel FLORES+probe (Resp) [facility] Urine Legionella pneumophila antigen detectionOrdered By: Cuco Soler on 04-13-2024 L. pneumophila Ag Ql (U) [facility] 12 Lead EKGon 04-12-2024 12 Lead EKG Normal [facility] BNP (brain natriuretic pepti de measurement)Ordered By: Luli Alex on 04-12-2024 Natriuretic peptide B (Bld) [Mass/Vol] 124.0 pg/mL High 0-100 [facility] BNP,B-Type NATRIURETIC PEPTI Sindy 04-12-2024 Natriuretic peptide B (Bld) [Mass/Vol] 124.0 pg/mL High 0-100 [facility] Comment on above: Performed By: #### L 503.6620, L500.2500, L100.0100 ####[facility] [address] [place], [address] Basic Metabolic Profile (BMP )on 04-12-2024 BUN/CRE 16.5 RATIO Normal 10-20 [facility] Comment on above: Order Comment: REDRA W. PREVIOUS SPECIMEN REJECTED DUE TOHEMOLYSIS. 04/12/24 1220 Sharon Sandoval.1 Performed By: #### L 500.2500, L501.4020 ####[facility] [address] [place], [address] CA,Total 9.4 mg/dL Normal 8.5-10.1 [facility] Comment on above: Order Comment: REDRA W. PREVIOUS SPECIMEN REJECTED DUE TOHEMOLYSIS. 04/12/24 1220 Sharon Frankzano.1 Performed By: #### L 500.2500, L501.4020 ####[facility] [address] [place], [address] Chloride [Moles/Vol] 105 mmol/L Normal 98-107 [facility] Comment on above: Order Comment: REDRA W. PREVIOUS SPECIMEN REJECTED DUE TOHEMOLYSIS. 04/12/24 1220 Sharon Sandoval.1 Performed By: #### L 500.2500, L501.4020 ####[facility] [address] [place], [address] CO2 [Moles/Vol] 26.0 mmol/L Normal 21.0-32.0 [facility] Comment on above: Order Comment: REDRA W. PREVIOUS SPECIMEN REJECTED DUE TOHEMOLYSIS. 04/12/240 Sharon Sandoval.1 Performed By: #### L 500.2500, L501.4020 ####[facility] [address] [place], [address] Creatinine [Mass/Vol] 0.97 mg/dL Normal 0.70-1.[address] [facility] Comment on above: Order Comment: REDRA W. PREVIOUS SPECIMEN REJECTED DUE TOHEMOLYSIS. 04/12/240 Sharon Sandoval.1 Result Comment: The validity of the calculated GFR GFRAA in patients over70 years has not been determined. Clinical correlation isessential. Performed By: #### L 500.2500, L501.4020 ####[facility] [address] [place], [address] EST GFR - AA 101 mL/min Normal >60 [facility] Comment on above: Order Comment: REDRA W. PREVIOUS SPECIMEN REJECTED DUE TOHEMOLYSIS. 04/12/24 1220 Sharon Sandoval.1 Result Comment: Afri can Z[place]ian GFR Calc Performed By: #### L 500.2500, L501.4020 ####[facility] [address] [place], [address] GAP 3 Low 5-15 [facility] Comment on above: Order Comment: REDRA W. PREVIOUS SPECIMEN REJECTED DUE TOHEMOLYSIS. 04/12/24 1220 Sharon Sandoval.1 Performed By: #### L 500.2500, L501.4020 ####[facility] [address] [place], [address] GFR/1.73 sq M.predicted among non-blacks MDRD (S/P/Bld) [Vol rate/Area] 84 mL/min/{1.73_m2} Normal >60 [facility] Comment on above: Order Comment: REDRA W. PREVIOUS SPECIMEN REJECTED DUE TOHEMOLYSIS. 04/12/24 1220 Sharon Sandoval.1 Result Comment: Non- GFR Calc Performed By: #### L 500.2500, L501.4020 ####[facility] [address] [place], [address] Glucose [Mass/Vol] 124 mg/dL High 74-106 [facility] Comment on above: Order Comment: REDRA W. PREVIOUS SPECIMEN REJECTED DUE TOHEMOLYSIS. 04/12/24 1220 Sharon Sandoval.1 Result Comment: Fast ing Glucose result from 100 to 125 mg/dLsuggests IMPAIRED HOMEOSTASIS per A.D.A. criteria. Performed By: #### L 500.2500, L501.4020 ####[facility] [address] [place], [address] Potassium [Moles/Vol] 3.7 mmol/L Normal 3.5-5.[address] [facility] Comment on above: Order Comment: REDRA W. PREVIOUS SPECIMEN REJECTED DUE TOHEMOLYSIS. 04/12/24 1220 Sharon Sandoval.1 Performed By: #### L 500.2500, L501.4020 ####[facility] [address] [place], [address] Sodium [Moles/Vol] 134 mmol/L Low 136-145 [facility] Comment on above: Order Comment: REDRA W. PREVIOUS SPECIMEN REJECTED DUE TOHEMOLYSIS. 04/12/24 1220 Sharon Sandoval.1 Performed By: #### L 500.2500, L501.4020 ####[facility] [address] [place], [address] Urea nitrogen [Mass/Vol] 16 mg/dL Normal 7-18 [facility] Comment on above: Order Comment: NEETU Giles. PREVIOUS SPECIMEN REJECTED DUE TOHEMOLYSIS. 04/12/24 1220 Sharon Sandoval.1 Performed By: #### L 500.2500, L501.4020 ####[facility] [address] [place], [address] BUN Normal 7-18 [facility] Comment on above: Order Comment: 'TROP ' Serial specimen #1, #2 or #3: 1 Result Comment: This specimen has been REJECTED due to Laboratory criteria:Hemolyzed.PORSCHE has been notified of need of recollection.04/12/24 1218 Sharon Frankzano Performed By: #### L 503.6620, L500.2500, L100.0100 ####[facility] [address] [place], [address] BUN/CRE Normal 10-20 [facility] Comment on above: Order Comment: 'TROP ' Serial specimen #1, #2 or #3: 1 Result Comment: This specimen has been REJECTED due to Laboratory criteria:Hemolyzed.PORSCHE has been notified of need of recollection.04/12/24 1218 Sharon Sandoval Performed By: #### L 503.6620, L500.2500, L100.0100 ####[facility] [address] [place], [address] CA,Total Normal 8.5-10.1 [facility] Comment on above: Order Comment: 'TROP ' Serial specimen #1, #2 or #3: 1 Result Comment: This specimen has been REJECTED due to Laboratory criteria:Hemolyzed.PORSCHE has been notified of need of recollection.04/12/24 1218 Sharon Sandoval Performed By: #### L 503.6620, L500.2500, L100.0100 ####[facility] [address] [place], [address] CL Normal 98-107 [facility] Comment on above: Order Comment: 'TROP ' Serial specimen #1, #2 or #3: 1 Result Comment: This specimen has been REJECTED due to Laboratory criteria:Hemolyzed.PORSCHE has been notified of need of recollection.04/12/24 1218 Sharon Sandoval Performed By: #### L 503.6620, L500.2500, L100.0100 ####[facility] [address] [place], [address] CO2 Normal 21.0-32.0 [facility] Comment on above: Order Comment: 'TROP ' Serial specimen #1, #2 or #3: 1 Result Comment: This specimen has been REJECTED due to Laboratory criteria:Hemolyzed.PORSCHE has been notified of need of recollection.04/12/24 1218 Sharon Sandoval Performed By: #### L 503.6620, L500.2500, L100.0100 ####[facility] [address] [place], [address] CREAT,SERUM Normal 0.70-1.30 [facility] Comment on above: Order Comment: 'TROP ' Serial specimen #1, #2 or #3: 1 Result Comment: This specimen has been REJECTED due to Laboratory criteria:Hemolyzed.ELOISAE has been notified of need of recollection.04/12/248 Sharon Sandoval Performed By: #### L 503.6620, L500.2500, L100.0100 ####[facility] [address] [place], [address] EST GFR Normal >60 [facility] Comment on above: Order Comment: 'TROP ' Serial specimen #1, #2 or #3: 1 Result Comment: This specimen has been REJECTED due to Laboratory criteria:Hemolyzed.PORSCHE has been notified of need of recollection.04/12/24 1218 Sharon Sandoval Performed By: #### L 503.6620, L500.2500, L100.0100 ####[facility] [address] [place], [address] EST GFR - AA Normal >60 [facility] Comment on above: Order Comment: 'TROP ' Serial specimen #1, #2 or #3: 1 Result Comment: This specimen has been REJECTED due to Laboratory criteria:Hemolyzed.CHRISILIE has been notified of need of recollection.04/12/24 1218 Sharon Sandoval Performed By: #### L 503.6620, L500.2500, L100.0100 ####[facility] [address] [place], [address] GAP Normal 5-15 [facility] Comment on above: Order Comment: 'TROP ' Serial specimen #1, #2 or #3: 1 Result Comment: This specimen has been REJECTED due to Laboratory criteria:Hemolyzed.LORILIE has been notified of need of recollection.04/12/24 1218 Sharon Sandoval Performed By: #### L 503.6620, L500.2500, L100.0100 ####[facility] [address] [place], [address] GLU Normal 74-106 [facility] Comment on above: Order Comment: 'TROP ' Serial specimen #1, #2 or #3: 1 Result Comment: This specimen has been REJECTED due to Laboratory criteria:Hemolyzed.LORILIE has been notified of need of recollection.04/12/24 1218 Sharon Sandoval Performed By: #### L 503.6620, L500.2500, L100.0100 ####[facility] [address] [place], [address] Potassium Normal 3.5-5.1 [facility] Comment on above: Order Comment: 'TROP ' Serial specimen #1, #2 or #3: 1 Result Comment: This specimen has been REJECTED due to Laboratory criteria:Hemolyzed.LORILIE has been notified of need of recollection.04/12/24 1218 Sharon Sandoval Performed By: #### L 503.6620, L500.2500, L100.0100 ####[facility] [address] [place], [address] Basic Metabolic Profile (BMP) Normal 136-145 [facility] Comment on above: Order Comment: 'TROP ' Serial specimen #1, #2 or #3: 1 Result Comment: This specimen has been REJECTED due to Laboratory criteria:Hemolyzed.PORSCHE has been notified of need of recollection.04/12/24 1218 Sharon Sandoval Performed By: #### L 503.6620, L500.2500, L100.0100 ####[facility] [address] [place], [address] Bedside Glucoseon 04-12-2024 FINGERSTICK GLU 161 mg/dL High 74-106 [facility] Comment on above: Result Comment: ANI GEMENT OF PATIENT CARE PER NURSING PROTOCOL Performed By: #### L 501.080 ####[facility] [address] [place], [address] FINGERSTICK GLU 159 mg/dL High 74-106 [facility] Comment on above: Result Comment: ANI GEMENT OF PATIENT CARE PER NURSING PROTOCOL Performed By: #### L 501.080 ####[facility] [address] [place], [address] Blood cultureOrdered By: Katherin Alex on 04-12-2024 Bacteria identified Cx Nom (Bld) No growth in 5 days. [facility] Bacteria identified Cx Nom (Bld) Presumptive Micrococcus spp. Abnormal [facility] CBC W/Diff, Automatedon 04-01 Absolute Lymph 0.90 X10 3/uL Normal 0.83-4.51 [facility] Comment on above: Performed By: #### L 100.0100 ####[facility] [address] [place], [address] Absolute Neut 9.6 X10 3/uL High 2.0-7.7 [facility] Comment on above: Performed By: #### L 100.0100 ####[facility] [address] [place], [address] Basophils/100 WBC (Bld) 0.3 % Normal 0-1 [facility] Comment on above: Performed By: #### L 100.0100 ####[facility] [address] [place], [address] Eosinophils/100 WBC (Bld) 2.1 % Normal 0-5 [facility] Comment on above: Performed By: #### L 100.0100 ####[facility] [address] [place], [address] Erythrocyte distribution width (RBC) [Ratio] 20.1 % High 11.6-14.6 [facility] Comment on above: Performed By: #### L 100.0100 ####[facility] [address] [place], [address] Hematocrit (Bld) [Volume fraction] 28.3 % Low 40-54 [facility] Comment on above: Performed By: #### L 100.0100 ####[facility] [address] [place], [address] Hemoglobin (Bld) [Mass/Vol] 8.2 g/dL Low 13.0-16.5 [facility] Comment on above: Performed By: #### L 100.0100 ####[facility] [address] [place], [address] IG% 0.400 Normal 0.0-0.9 [facility] Comment on above: Result Comment: IG% - Immature Granulocytes (promyelocytes, myelocytes andmetamyelocytes) > 1% indicates that a LEFT SHIFT is Present. Performed By: #### L 100.0100 ####[facility] [address] [place], [address] Lymphocytes/100 WBC (Bld) 7.5 % Low 19-41 [facility] Comment on above: Performed By: #### L 100.0100 ####[facility] [address] [place], [address] MCH (RBC) [Entitic mass] 21.7 pg Low 27.0-32.0 [facility] Comment on above: Performed By: #### L 100.0100 ####[facility] [address] [place], [address] MCHC (RBC) [Mass/Vol] 29.0 g/dL Low 32-[address] [facility] Comment on above: Performed By: #### L 100.0100 ####[facility] [address] [place], [address] MCV (RBC) [Entitic vol] 74.9 fL Low 80-94 [facility] Comment on above: Performed By: #### L 100.0100 ####[facility] [address] [place], [address] Monocytes/100 WBC (Bld) 9.4 % Normal 0-10 [facility] Comment on above: Performed By: #### L 100.0100 ####[facility] [address] [place], [address] Neutrophils/100 WBC (Bld) 80.3 % High 47-70 [facility] Comment on above: Performed By: #### L 100.0100 ####[facility] [address] [place], [address] Nucleated RBC (Bld) [#/Vol] 0 10*3/uL Normal 0-5 [facility] Comment on above: Performed By: #### L 100.0100 ####[facility] [address] [place], [address] Platelet mean volume (Bld) [Entitic vol] 9.6 fL Normal 6.2-12.0 [facility] Comment on above: Performed By: #### L 100.0100 ####[facility] [address] [place], [address] Platelets (Bld) [#/Vol] 282 10*3/uL Normal 150-450 [facility] Comment on above: Performed By: #### L 100.0100 ####[facility] [address] [place], [address] RBC (Bld) [#/Vol] 3.78 10*6/uL Low 4.6-6.2 [facility] Comment on above: Performed By: #### L 100.0100 ####[facility] [address] [place], [address] RDW SD 54.1 fl High 35.1-43.9 [facility] Comment on above: Performed By: #### L 100.0100 ####[facility] [address] [place], [address] WBC (Bld) [#/Vol] 12.0 10*3/uL High 4.4-11.0 [facility] Comment on above: Performed By: #### L 100.0100 ####[facility] [address] [place], [address] Absolute Lymph 0.90 X10 3/uL Normal 0.83-4.51 [facility] Comment on above: Performed By: #### L 503.6620, L500.2500, L100.0100 ####[facility] [address] [place], [address] Absolute Neut 9.9 X10 3/uL High 2.0-7.7 [facility] Comment on above: Performed By: #### L 503.6620, L500.2500, L100.0100 ####[facility] [address] [place], [address] Basophils/100 WBC (Bld) 0.4 % Normal 0-1 [facility] Comment on above: Performed By: #### L 503.6620, L500.2500, L100.0100 ####[facility] [address] [place], [address] Eosinophils/100 WBC (Bld) 2.3 % Normal 0-5 [facility] Comment on above: Performed By: #### L 503.6620, L500.2500, L100.0100 ####[facility] [address] [place], [address] Erythrocyte distribution width (RBC) [Ratio] 19.9 % High 11.6-14.6 [facility] Comment on above: Performed By: #### L 503.6620, L500.2500, L100.0100 ####[facility] [address] [place], [address] Hematocrit (Bld) [Volume fraction] 27.8 % Low 40-54 [facility] Comment on above: Performed By: #### L 503.6620, L500.2500, L100.0100 ####[facility] [address] [place], [address] Hemoglobin (Bld) [Mass/Vol] 8.2 g/dL Low 13.0-16.5 [facility] Comment on above: Performed By: #### L 503.6620, L500.2500, L100.0100 ####[facility] [address] [place], [address] IG% 0.400 Normal 0.0-0.9 [facility] Comment on above: Result Comment: IG% - Immature Granulocytes (promyelocytes, myelocytes andmetamyelocytes) > 1% indicates that a LEFT SHIFT is Present. Performed By: #### L 503.6620, L500.2500, L100.0100 ####[facility] [address] [place], [address] Lymphocytes/100 WBC (Bld) 7.4 % Low 19-41 [facility] Comment on above: Performed By: #### L 503.6620, L500.2500, L100.0100 ####[facility] [address] [place], [address] MCH (RBC) [Entitic mass] 22.1 pg Low 27.0-32.0 [facility] Comment on above: Performed By: #### L 503.6620, L500.2500, L100.0100 ####[facility] [address] [place], [address] MCHC (RBC) [Mass/Vol] 29.5 g/dL Low 32-[address] [facility] Comment on above: Performed By: #### L 503.6620, L500.2500, L100.0100 ####[facility] [address] [place], [address] MCV (RBC) [Entitic vol] 74.9 fL Low 80-94 [facility] Comment on above: Performed By: #### L 503.6620, L500.2500, L100.0100 ####[facility] [address] [place], [address] Monocytes/100 WBC (Bld) 8.5 % Normal 0-10 [facility] Comment on above: Performed By: #### L 503.6620, L500.2500, L100.0100 ####[facility] [address] [place], [address] Neutrophils/100 WBC (Bld) 81.0 % High 47-70 [facility] Comment on above: Performed By: #### L 503.6620, L500.2500, L100.0100 ####[facility] [address] [place], [address] Nucleated RBC (Bld) [#/Vol] 0 10*3/uL Normal 0-5 [facility] Comment on above: Performed By: #### L 503.6620, L500.2500, L100.0100 ####[facility] [address] [place], [address] Platelet mean volume (Bld) [Entitic vol] 10.5 fL Normal 6.2-12.0 [facility] Comment on above: Performed By: #### L 503.6620, L500.2500, L100.0100 ####[facility] [address] [place], [address] Platelets (Bld) [#/Vol] 349 10*3/uL Normal 150-450 [facility] Comment on above: Performed By: #### L 503.6620, L500.2500, L100.0100 ####[facility] [address] [place], [address] RBC (Bld) [#/Vol] 3.71 10*6/uL Low 4.6-6.2 [facility] Comment on above: Performed By: #### L 503.6620, L500.2500, L100.0100 ####[facility] [address] [place], [address] RDW SD 53.1 fl High 35.1-43.9 [facility] Comment on above: Performed By: #### L 503.6620, L500.2500, L100.0100 ####[facility] [address] [place], [address] WBC (Bld) [#/Vol] 12.2 10*3/uL High 4.4-11.0 [facility] Comment on above: Performed By: #### L 503.6620, L500.2500, L100.0100 ####[facility] [address] [place], [address] CO2 (BldV) [Moles/Vol]Ordere d By: Luli Alex on 04-12-2024 CO2 [Moles/Vol] 24 mmol/L 23-33 [facility] Chest 1 View (Portable)on Chest 1 View (Portable) Normal [facility] Emergency Department Summary on 04-12-2024 Emergency Department Summary Normal [facility] H AND P Exam - Hospitaliston 04-12-2024 H&P Exam - Hospitalist Normal [facility] Influenza virus A and B and SARS-CoV-2 (COVID-19) and Respiratory syncytial virus RNAOrdered By: Luli Alex on 04-12-2024 SARS-CoV-2 (COVID-19) RNA FLORES+probe Ql (Unsp spec) [facility] L501.4020on 04-12-2024 TROPONIN-I HS 12 pg/mL Normal 3.0-78.0 [facility] Comment on above: Order Comment: Comme nts: SPECIMEN #3'TROP' Serial specimen #1, #2 or #3: 3 Result Comment: Plea se Note: New Test Units and Gender Specific Reference Ranges. For more information see Policy Stat Procedure [place] High Sensitivity Troponin (TNIH) and attachments. Performed By: #### L 501.4020 ####[facility] [address] [place], [address] TROPONIN-I HS 18 pg/mL Normal 3.0-78.0 [facility] Comment on above: Order Comment: Comme nts: SPECIMEN #2'TROP' Serial specimen #1, #2 or #3: 2 Result Comment: Plea se Note: New Test Units and Gender Specific Reference Ranges. For more information see Policy Stat Procedure [place] High Sensitivity Troponin (TNIH) and attachments. Performed By: #### L 501.4020 ####[facility] [address] [place], [address] TROPONIN-I HS 16 pg/mL Normal 3.0-78.0 [facility] Comment on above: Order Comment: NEETU Giles. PREVIOUS SPECIMEN REJECTED DUE TOHEMOLYSIS. 04/12/24 1220 Sharon Sandoval.1 Result Comment: Plea se Note: New Test Units and Gender Specific Reference Ranges. For more information see Policy Stat Procedure [place] High Sensitivity Troponin (TNIH) and attachments. Performed By: #### L 500.2500, L501.4020 ####[facility] [address] [place], [address] M100.678on 04-12-2024 M100.678 Pending SARS-CoV-2 (COVID 19) Negative INFLUENZA A Negative INFLUENZA B Negative RSV PCR Negative Normal [facility] Comment on above: Performed By: #### M 100.678 ####[facility] [address] [place], [address] No Panel InformationOrdered By: Luli Alex on 04-12-2024 JOSHUA [facility] Not entered [facility] Cannula [facility] Organism identificationOrder ed By: Luli Alex on 04-12-2024 Microorganism identified Cx Nom (Unsp spec) [facility] Troponin IOrdered By: Eduin Ospina on 04-12-2024 Troponin I 12 pg/mL 3.0-78.0 [facility] Venous Blood Gason 5 Blood Gas Type JOSHUA Normal [facility] Comment on above: Performed By: #### L 9000.0810 ####[facility] [address] [place], [address] CO2 [Moles/Vol] 24 mmol/L Normal 23-33 [facility] Comment on above: Performed By: #### L 9000.0810 ####[facility] [address] [place], [address] FI02 5.0 Normal [facility] Comment on above: Performed By: #### L 9000.0810 ####[facility] [address] [place], [address] HCO3 (Bld) [Moles/Vol] 23 mmol/L Normal 22-26 [facility] Comment on above: Performed By: #### L 9000.0810 ####[facility] [address] [place], [address] O2 Delivery Dev Cannula Normal [facility] Comment on above: Performed By: #### L 9000.0810 ####[facility] [address] [place], [address] SITE Not entered Normal [facility] Comment on above: Performed By: #### L 9000.0810 ####[facility] [address] [place], [address] VBG BE -1 mmol/L Normal -1.0-3.5 [facility] Comment on above: Performed By: #### L 9000.0810 ####[facility] [address] [place], [address] VBG pCO2 34.8 mmHg Low 41-51 [facility] Comment on above: Performed By: #### L 9000.0810 ####[facility] [address] [place], [address] VBG pH 7.43 High 7.32-7.42 [facility] Comment on above: Performed By: #### L 9000.0810 ####[facility] [address] [place], [address] VBG PO2 30 mmHg Normal 25-40 [facility] Comment on above: Performed By: #### L 9000.0810 ####[facility] [address] [place], [address] VBG SO2 60 Normal 50-70 [facility] Comment on above: Performed By: #### L 9000.0810 ####[facility] [address] [place], [address] Venous blood base excess elizabeth surementOrdered By: Luli Alex on 04-12-2024 Base excess Calc (BldV) [Moles/Vol] -1 mmol/L -1.0-3.5 [facility] Venous blood bicarbonate elizabeth surementOrdered By: Luli Alex on 04-12-2024 HCO3 (Bld) [Moles/Vol] 23 mmol/L 22-26 [facility] Venous blood pH measurementO rdered By: Luli Alex on 04-12-2024 pH (BldV) 7.43 [pH] High 7.32-7.42 [facility] Venous blood partial pressur e of carbon dioxide measurementOrdered By: Luli Alex on 04-12-2024 CO2 (BldV) [Partial pressure] 34.8 mm[Hg] Low 41-51 [facility] Venous blood partial pressur e of oxygen measurementOrdered By: Luli Alex on 04-12-2024 Oxygen (BldV) [Partial pressure] 30 mm[Hg] 25-40 [facility] 36on 04-09-2024 36 Call ref #[id number] 000 NAN for CPT 05067 & 50890 Normal [facility] No Panel Informationon 04-07 1. There [...] MD Electronically Signed Date/Time: 04/07/2024 12:27 AM [facility] [employer] [facility] 1965 [id number] Exam Date/Time: 04/06/2024 13:31 Procedure: [facility] [place] CAROTID ARTERY DUPLEX BILATERAL Ordering Provider: [...] 50-69% ECA systolic: 256 cm/sec Vertebral: Antegrade [facility] Sameer Etienne MD - 04/07/2024 Patient Name: KRUNAL LEOS : 1965 Exam Date/Time: 04/06/2024 13:31 Procedure: [facility] [place] CAROTID ARTERY DUPLEX BILATERAL Ordering Provider: [...] MD Electronically Signed Date/Time: 04/07/2024 12:27 AM [facility] US CAROTID ARTERY DUPLE X BILATERALon 04-07-2024 [facility] US CAROTID ARTERY DUPLEX BILATERAL Patient Name: KRUNAL LE[facility] : 1965 [id number] Exam Date/Time: 04/06/2024 13:31 Procedure: [facility] US CAROTID ARTERY DUPLEX BILATERAL Ordering Provider: [...] Signed Date/Time: 04/07/2024 12:27 AM EST Normal [facility] Office Visit Reporton 2023 Office Visit Report Normal [facility] Bedside Glucoseon 03-27-2024 FINGERSTICK GLU 195 mg/dL High 74-106 [facility] Comment on above: Result Comment: ANI GEMENT OF PATIENT CARE PER NURSING PROTOCOL Performed By: #### L 501.080 ####[facility] [address] [place], [address] Colonoscopy Reporton 024 Colonoscopy Report Normal [facility] EGD Reporton 03-27-2024 EGD Report Normal [facility] H Pylori (initial)on 024 H Pylori (initial) Normal [facility] Comment on above: Performed By: #### P H.PYLORI ####[facility] [address] [place], [address] MR/POSTOP.ANEon 03-27-2024 MR/POSTOP.ANE Normal [facility] MR/MWILPCAV6la 03-27-2024 MR/POSTOPAN2 Normal [facility] Surgery Specimen Level Dolores 03-27-2024 Surgery Specimen Level IV Normal [facility] Comment on above: Performed By: #### P SUIV ####[facility] [address] [place], [address] Pulmonary Visit Reporton Pulmonary Visit Report Normal [facility] MR/PAT.ANEon 03-20-2024 MR/PAT.ANE Normal [facility] Cardiology Visit Reporton Cardiology Visit Report Normal [facility] RICARDO w/ Reflex Mult Confirmon 03-05-2024 RICARDO,DIRECT Negative Normal Negative [facility] Comment on above: Result Comment: Perf ormed at: - [facility] [address] [id number] Director: Chance Morales PhD, Phone: [phone] Performed By: #### L 311.9482, K4606.2322, V3955.7235, X7287.8706 ####[facility] [address] [place], [address] ANCAon 03-05-2024 Atypical pANCA <1:20 Normal Neg:<1:20 [facility] Comment on above: Result Comment: The atypical pANCA pattern has been observed in asignificant percentage of patients with ulcerative colitis,primary sclerosing cholangitis and autoimmune hepatitis. Performed By: #### L 505.7010, L3300.1200, L3100.5450, L4600.0100 ####[facility] [address] [place], [address] Cytoplasmic Ab <1:20 Normal Neg:<1:20 [facility] Comment on above: Performed By: #### L 505.7010, L3300.1200, L3100.5450, L4600.0100 ####[facility] [address] [place], [address] Perinuclear Ab. <1:20 Normal Neg:<1:20 [facility] Comment on above: Result Comment: The presence of positive fluorescence exhibiting P-ANCA orC-ANCA patterns alone is not specific for the diagnosis ofWegener's Granulomatosis (WG) or microscopic polyangiitis.Decisions about treatment should not be based solely onANCA IFA results. The [employer] ANCA Group Consensusrecommends follow up testing of positive sera with both MI-3 and MPO-ANCA enzyme immunoassays. As many as 5% serumsamples are positive only by EIA. Ref. AM J Clin Mlrops6792;111:507-513. Performed By: #### L 505.7010, L3300.1200, L3100.5450, L4600.0100 ####[facility] [address] [place], [place], [id number] CCP IgG Antibodieson 024 CCP IgG Ab. 6 units Normal 0-19 [facility] Comment on above: Result Comment: Nega tive <20 Weak positive 20 - 39 Moderate positive 40 - 59 Strong positive >59Performed at: [facility] [address] [id number] Director: Chance Morales PhD, Phone: [phone] Performed By: #### L 505.7010, L3300.1200, L3100.5450, L4600.0100 ####[facility] [address] [place], [address] Discharge Instructionon Discharge Instruction Normal [facility] Rheumatoid Factoron 03-04-20 24 RHEUMATOID FAC 25.0 IU/mL High <15 [facility] Comment on above: Performed By: #### L 505.7010, L3300.1200, L3100.5450, L4600.0100 ####[facility] [address] [place], [address] CBC W/Diff, Automatedon Absolute Lymph 1.46 X10 3/uL Normal 0.83-4.51 [facility] Comment on above: Performed By: #### L 501.9520, L100.0100 ####[facility] [address] [place], [address] Absolute Neut 5.9 X10 3/uL Normal 2.0-7.7 [facility] Comment on above: Performed By: #### L 501.9520, L100.0100 ####[facility] [address] [place], [address] Basophils/100 WBC (Bld) 0.6 % Normal 0-1 [facility] Comment on above: Performed By: #### L 501.9520, L100.0100 ####[facility] [address] [place], [address] Eosinophils/100 WBC (Bld) 2.9 % Normal 0-5 [facility] Comment on above: Performed By: #### L 501.9520, L100.0100 ####[facility] [address] [place], [address] Erythrocyte distribution width (RBC) [Ratio] 17.6 % High 11.6-14.6 [facility] Comment on above: Performed By: #### L 501.9520, L100.0100 ####[facility] [address] [place], [address] Hematocrit (Bld) [Volume fraction] 31.2 % Low 40-54 [facility] Comment on above: Performed By: #### L 501.9520, L100.0100 ####[facility] [address] [place], [address] Hemoglobin (Bld) [Mass/Vol] 9.0 g/dL Low 13.0-16.5 [facility] Comment on above: Performed By: #### L 501.9520, L100.0100 ####[facility] [address] [place], [address] IG% 0.400 Normal 0.0-0.9 [facility] Comment on above: Result Comment: IG% - Immature Granulocytes (promyelocytes, myelocytes andmetamyelocytes) > 1% indicates that a LEFT SHIFT is Present. Performed By: #### L 501.95, L100.0100 ####[facility] [address] [place], [address] Lymphocytes/100 WBC (Bld) 17.2 % Low 19-41 [facility] Comment on above: Performed By: #### L 501.9519, L100.0100 ####[facility] [address] [place], [address] MCH (RBC) [Entitic mass] 21.9 pg Low 27.0-32.0 [facility] Comment on above: Performed By: #### L 501.95, L100.0100 ####[facility] [address] [place], [address] MCHC (RBC) [Mass/Vol] 28.8 g/dL Low 32-[address] [facility] Comment on above: Performed By: #### L 501.9520, L100.0100 ####[facility] [address] [place], [address] MCV (RBC) [Entitic vol] 75.9 fL Low 80-94 [facility] Comment on above: Performed By: #### L 501.20, L100.0100 ####[facility] [address] [place], [address] Monocytes/100 WBC (Bld) 9.3 % Normal 0-10 [facility] Comment on above: Performed By: #### L 501.9519, L100.0100 ####[facility] [address] [place], [address] Neutrophils/100 WBC (Bld) 69.6 % Normal 47-70 [facility] Comment on above: Performed By: #### L 501.9519, L100.0100 ####[facility] [address] [place], [address] Nucleated RBC (Bld) [#/Vol] 0 10*3/uL Normal 0-5 [facility] Comment on above: Performed By: #### L 501.9519, L100.0100 ####[facility] [address] [place], [address] Platelet mean volume (Bld) [Entitic vol] 9.8 fL Normal 6.2-12.0 [facility] Comment on above: Performed By: #### L 501.9519, L100.0100 ####[facility] [address] [place], [address] Platelets (Bld) [#/Vol] 227 10*3/uL Normal 150-450 [facility] Comment on above: Performed By: #### L 501.9519, L100.0100 ####[facility] [address] [place], [address] RBC (Bld) [#/Vol] 4.11 10*6/uL Low 4.6-6.2 [facility] Comment on above: Performed By: #### L 501.9520, L100.0100 ####[facility] [address] [place], [address] RDW SD 47.8 fl High 35.1-43.9 [facility] Comment on above: Performed By: #### L 501.9520, L100.0100 ####[facility] [address] [place], [address] WBC (Bld) [#/Vol] 8.5 10*3/uL Normal 4.4-11.0 [facility] Comment on above: Performed By: #### L 501.9520, L100.0100 ####[facility] [address] [place], [address] Chest without Contraston Chest without Contrast Normal [facility] Consultation - Intensiviston 03-03-2024 Consultation - Equine Vet Normal [facility] RESPIRATORY PANEL MOLECULARo n 03-03-2024 RP PANEL Normal [facility] Comment on above: Performed By: #### M 100.638 ####[facility] [address] [place], [address] Thyroid Stim Hormone (TSH)on 03-03-2024 TSH 1.390 uIU/mL Normal 0.358-3.74 0 [facility] Comment on above: Performed By: #### L 501.9520, L100.0100 ####[facility] [address] [place], [address] 12 Lead EKGon 03-02-2024 12 Lead EKG Normal [facility] BNP,B-Type NATRIURETIC PEPTI Sindy 03-02-2024 Natriuretic peptide B (Bld) [Mass/Vol] 48.5 pg/mL Normal 0-100 [facility] Comment on above: Performed By: #### L 100.0100, L500.2500, L503.6620, L501.4020 ####[facility] [address] [place], [address] Basic Metabolic Profile (BMP )on 03-02-2024 BUN/CRE 23.3 RATIO High 10-20 [facility] Comment on above: Order Comment: 'TROP ' Serial specimen #1, #2 or #3: 1 Performed By: #### L 100.0100, L500.2500, L503.6620, L501.4020 ####[facility] [address] [place], [address] CA,Total 9.0 mg/dL Normal 8.5-10.1 [facility] Comment on above: Order Comment: 'TROP ' Serial specimen #1, #2 or #3: 1 Performed By: #### L 100.0100, L500.2500, L503.6620, L501.4020 ####[facility] [address] [place], [address] Chloride [Moles/Vol] 107 mmol/L Normal 98-107 [facility] Comment on above: Order Comment: 'TROP ' Serial specimen #1, #2 or #3: 1 Performed By: #### L 100.0100, L500.2500, L503.6620, L501.4020 ####[facility] [address] [place], [address] CO2 [Moles/Vol] 24.0 mmol/L Normal 21.0-32.0 [facility] Comment on above: Order Comment: 'TROP ' Serial specimen #1, #2 or #3: 1 Performed By: #### L 100.0100, L500.2500, L503.6620, L501.4020 ####[facility] [address] [place], [address] Creatinine [Mass/Vol] 1.03 mg/dL Normal 0.70-1.[address] [facility] Comment on above: Order Comment: 'TROP ' Serial specimen #1, #2 or #3: 1 Result Comment: The validity of the calculated GFR GFRAA in patients over70 years has not been determined. Clinical correlation isessential. Performed By: #### L 100.0100, L500.2500, L503.6620, L501.4020 ####[facility] [address] [place], [address] ECRCL 107.77 ml/min Normal [facility] Comment on above: Order Comment: 'TROP ' Serial specimen #1, #2 or #3: 1 Performed By: #### L 100.0100, L500.2500, L503.6620, L501.4020 ####[facility] [address] [place], [address] EST GFR - AA 95 mL/min Normal >60 [facility] Comment on above: Order Comment: 'TROP ' Serial specimen #1, #2 or #3: 1 Result Comment: Afri can [place] GFR Calc Performed By: #### L 100.0100, L500.2500, L503.6620, L501.4020 ####[facility] [address] [place], [address] GAP 6 Normal 5-15 [facility] Comment on above: Order Comment: 'TROP ' Serial specimen #1, #2 or #3: 1 Performed By: #### L 100.0100, L500.2500, L503.6620, L501.4020 ####[facility] [address] [place], [address] GFR/1.73 sq M.predicted among non-blacks MDRD (S/P/Bld) [Vol rate/Area] 78 mL/min/{1.73_m2} Normal >60 [facility] Comment on above: Order Comment: 'TROP ' Serial specimen #1, #2 or #3: 1 Result Comment: Non- GFR Calc Performed By: #### L 100.0100, L500.2500, L503.6620, L501.4020 ####[facility] [address] [place], [address] Glucose [Mass/Vol] 220 mg/dL High 74-106 [facility] Comment on above: Order Comment: 'TROP ' Serial specimen #1, #2 or #3: 1 Result Comment: Gluc ose result greater than or equal to 200 mg/dLsuggests DIABETES MELLITUS per A.D.A. criteria. Performed By: #### L 100.0100, L500.2500, L503.6620, L501.4020 ####[facility] [address] [place], [address] Potassium [Moles/Vol] 4.0 mmol/L Normal 3.5-5.[address] [facility] Comment on above: Order Comment: 'TROP ' Serial specimen #1, #2 or #3: 1 Performed By: #### L 100.0100, L500.2500, L503.6620, L501.4020 ####[facility] [address] [place], [address] Sodium [Moles/Vol] 136 mmol/L Normal 136-145 [facility] Comment on above: Order Comment: 'TROP ' Serial specimen #1, #2 or #3: 1 Performed By: #### L 100.0100, L500.2500, L503.6620, L501.4020 ####[facility] [address] [place], [address] Urea nitrogen [Mass/Vol] 24 mg/dL High 7-18 [facility] Comment on above: Order Comment: 'TROP ' Serial specimen #1, #2 or #3: 1 Performed By: #### L 100.0100, L500.2500, L503.6620, L501.4020 ####[facility] [address] [place], [address] CBC W/Diff, Automatedon 12-0 Absolute Lymph 1.30 X10 3/uL Normal 0.83-4.51 [facility] Comment on above: Performed By: #### L 100.0100, L500.2500, L503.6620, L501.4020 ####[facility] [address] [place], [address] Absolute Neut 6.6 X10 3/uL Normal 2.0-7.7 [facility] Comment on above: Performed By: #### L 100.0100, L500.2500, L503.6620, L501.4020 ####[facility] [address] [place], [address] Basophils/100 WBC (Bld) 0.6 % Normal 0-1 [facility] Comment on above: Performed By: #### L 100.0100, L500.2500, L503.6620, L501.4020 ####[facility] [address] [place], [address] Eosinophils/100 WBC (Bld) 2.4 % Normal 0-5 [facility] Comment on above: Performed By: #### L 100.0100, L500.2500, L503.6620, L501.4020 ####[facility] [address] [place], [address] Erythrocyte distribution width (RBC) [Ratio] 17.9 % High 11.6-14.6 [facility] Comment on above: Performed By: #### L 100.0100, L500.2500, L503.6620, L501.4020 ####[facility] [address] [place], [address] Hematocrit (Bld) [Volume fraction] 32.1 % Low 40-54 [facility] Comment on above: Performed By: #### L 100.0100, L500.2500, L503.6620, L501.4020 ####[facility] [address] [place], [address] Hemoglobin (Bld) [Mass/Vol] 9.3 g/dL Low 13.0-16.5 [facility] Comment on above: Performed By: #### L 100.0100, L500.2500, L503.6620, L501.4020 ####[facility] [address] [place], [address] IG% 0.400 Normal 0.0-0.9 [facility] Comment on above: Result Comment: IG% - Immature Granulocytes (promyelocytes, myelocytes andmetamyelocytes) > 1% indicates that a LEFT SHIFT is Present. Performed By: #### L 100.0100, L500.2500, L503.6620, L501.4020 ####[facility] [address] [place], [address] Lymphocytes/100 WBC (Bld) 14.4 % Low 19-41 [facility] Comment on above: Performed By: #### L 100.0100, L500.2500, L503.6620, L501.4020 ####[facility] [address] [place], [address] MCH (RBC) [Entitic mass] 22.2 pg Low 27.0-32.0 [facility] Comment on above: Performed By: #### L 100.0100, L500.2500, L503.6620, L501.4020 ####[facility] [address] [place], [address] MCHC (RBC) [Mass/Vol] 29.0 g/dL Low 32-[address] [facility] Comment on above: Performed By: #### L 100.0100, L500.2500, L503.6620, L501.4020 ####[facility] [address] [place], [address] MCV (RBC) [Entitic vol] 76.6 fL Low 80-94 [facility] Comment on above: Performed By: #### L 100.0100, L500.2500, L503.6620, L501.4020 ####[facility] [address] [place], [address] Monocytes/100 WBC (Bld) 8.3 % Normal 0-10 [facility] Comment on above: Performed By: #### L 100.0100, L500.2500, L503.6620, L501.4020 ####[facility] [address] [place], [address] Neutrophils/100 WBC (Bld) 73.9 % High 47-70 [facility] Comment on above: Performed By: #### L 100.0100, L500.2500, L503.6620, L501.4020 ####[facility] [address] [place], [address] Nucleated RBC (Bld) [#/Vol] 0 10*3/uL Normal 0-5 [facility] Comment on above: Performed By: #### L 100.0100, L500.2500, L503.6620, L501.4020 ####[facility] [address] [place], [address] Platelet mean volume (Bld) [Entitic vol] 10.6 fL Normal 6.2-12.0 [facility] Comment on above: Performed By: #### L 100.0100, L500.2500, L503.6620, L501.4020 ####[facility] [address] [place], [address] Platelets (Bld) [#/Vol] 242 10*3/uL Normal 150-450 [facility] Comment on above: Performed By: #### L 100.0100, L500.2500, L503.6620, L501.4020 ####[facility] [address] [place], [address] RBC (Bld) [#/Vol] 4.19 10*6/uL Low 4.6-6.2 [facility] Comment on above: Performed By: #### L 100.0100, L500.2500, L503.6620, L501.4020 ####[facility] [address] [place], [address] RDW SD 49.2 fl High 35.1-43.9 [facility] Comment on above: Performed By: #### L 100.0100, L500.2500, L503.6620, L501.4020 ####[facility] [address] [place], [address] WBC (Bld) [#/Vol] 9.0 10*3/uL Normal 4.4-11.0 [facility] Comment on above: Performed By: #### L 100.0100, L500.2500, L503.6620, L501.4020 ####[facility] [address] [place], [address] Chest PA and Lateralon 03-02 Chest PA and Lateral Normal [facility] Echo Complete W/ Contraston 03-02-2024 Echo Complete W/ Contrast Normal [facility] Emergency Department Summary on 03-02-2024 Emergency Department Summary Normal [facility] H AND P Exam - Hospitaliston 03-02-2024 H&P Exam - Hospitalist Normal [facility] L501.4020on 03-02-2024 TROPONIN-I HS 35 pg/mL Normal 3.0-78.0 [facility] Comment on above: Order Comment: 'TROP ' Serial specimen #1, #2 or #3: 1 Result Comment: Plea se Note: New Test Units and Gender Specific Reference Ranges. For more information see Policy Stat Procedure [place] High Sensitivity Troponin (TNIH) and attachments. Performed By: #### L 100.0100, L500.2500, L503.6620, L501.4020 ####[facility] [address] [place], [address] M100.678on 03-02-2024 M100.678 Pending SARS-CoV-2 (COVID 19) Negative INFLUENZA A Negative INFLUENZA B Negative RSV PCR Negative Normal [facility] Comment on above: Performed By: #### M 100.678 ####[facility] [address] [place], [address] Basic Metabolic Profile (BMP )on 02-26-2024 BUN/CRE 20.5 RATIO High 10-20 [facility] Comment on above: Order Comment: 'TROP ' Serial specimen #1, #2 or #3: 1 Performed By: #### L 501.5200, L501.4020, L500.2500, L100.0100 ####[facility] [address] [place], [address] CA,Total 9.0 mg/dL Normal 8.5-10.1 [facility] Comment on above: Order Comment: 'TROP ' Serial specimen #1, #2 or #3: 1 Performed By: #### L 501.5200, L501.4020, L500.2500, L100.0100 ####[facility] [address] [place], [address] Chloride [Moles/Vol] 109 mmol/L High 98-107 [facility] Comment on above: Order Comment: 'TROP ' Serial specimen #1, #2 or #3: 1 Performed By: #### L 501.5200, L501.4020, L500.2500, L100.0100 ####[facility] [address] [place], [address] CO2 [Moles/Vol] 22.0 mmol/L Normal 21.0-32.0 [facility] Comment on above: Order Comment: 'TROP ' Serial specimen #1, #2 or #3: 1 Performed By: #### L 501.5200, L501.4020, L500.2500, L100.0100 ####[facility] [address] [place], [address] Creatinine [Mass/Vol] 1.32 mg/dL High 0.70-1.[address] [facility] Comment on above: Order Comment: 'TROP ' Serial specimen #1, #2 or #3: 1 Result Comment: The validity of the calculated GFR GFRAA in patients over70 years has not been determined. Clinical correlation isessential. Performed By: #### L 501.5200, L501.4020, L500.2500, L100.0100 ####[facility] [address] [place], [address] ECRCL 83.89 ml/min Normal [facility] Comment on above: Order Comment: 'TROP ' Serial specimen #1, #2 or #3: 1 Performed By: #### L 501.5200, L501.4020, L500.2500, L100.0100 ####[facility] [address] [place], [address] EST GFR - AA 71 mL/min Normal >60 [facility] Comment on above: Order Comment: 'TROP ' Serial specimen #1, #2 or #3: 1 Result Comment: Afri can [place] GFR Calc Performed By: #### L 501.5200, L501.4020, L500.2500, L100.0100 ####[facility] [address] [place], [address] GAP 7 Normal 5-15 [facility] Comment on above: Order Comment: 'TROP ' Serial specimen #1, #2 or #3: 1 Performed By: #### L 501.5200, L501.4020, L500.2500, L100.0100 ####[facility] [address] [place], [address] GFR/1.73 sq M.predicted among non-blacks MDRD (S/P/Bld) [Vol rate/Area] 59 mL/min/{1.73_m2} Low >60 [facility] Comment on above: Order Comment: 'TROP ' Serial specimen #1, #2 or #3: 1 Result Comment: Non- GFR Calc Performed By: #### L 501.5200, L501.4020, L500.2500, L100.0100 ####[facility] [address] [place], [address] Glucose [Mass/Vol] 193 mg/dL High 74-106 [facility] Comment on above: Order Comment: 'TROP ' Serial specimen #1, #2 or #3: 1 Result Comment: Fast ing Glucose result greater than or equal to 126 mg/dLsuggests DIABETES MELLITUS per A.D.A. criteria. Performed By: #### L 501.5200, L501.4020, L500.2500, L100.0100 ####[facility] [address] [place], [address] Potassium [Moles/Vol] 4.0 mmol/L Normal 3.5-5.[address] [facility] Comment on above: Order Comment: 'TROP ' Serial specimen #1, #2 or #3: 1 Performed By: #### L 501.5200, L501.4020, L500.2500, L100.0100 ####[facility] [address] [place], [address] Sodium [Moles/Vol] 138 mmol/L Normal 136-145 [facility] Comment on above: Order Comment: 'TROP ' Serial specimen #1, #2 or #3: 1 Performed By: #### L 501.5200, L501.4020, L500.2500, L100.0100 ####[facility] [address] [place], [address] Urea nitrogen [Mass/Vol] 27 mg/dL High 7-18 [facility] Comment on above: Order Comment: 'TROP ' Serial specimen #1, #2 or #3: 1 Performed By: #### L 501.5200, L501.4020, L500.2500, L100.0100 ####[facility] [address] [place], [address] CBC W/Diff, Automatedon - Absolute Lymph 1.36 X10 3/uL Normal 0.83-4.51 [facility] Comment on above: Performed By: #### L 501.5200, L501.4020, L500.2500, L100.0100 ####[facility] [address] [place], [address] Absolute Neut 6.7 X10 3/uL Normal 2.0-7.7 [facility] Comment on above: Performed By: #### L 501.5200, L501.4020, L500.2500, L100.0100 ####[facility] [address] [place], [address] Basophils/100 WBC (Bld) 0.9 % Normal 0-1 [facility] Comment on above: Performed By: #### L 501.5200, L501.4020, L500.2500, L100.0100 ####[facility] [address] [place], [address] Eosinophils/100 WBC (Bld) 2.1 % Normal 0-5 [facility] Comment on above: Performed By: #### L 501.5200, L501.4020, L500.2500, L100.0100 ####[facility] [address] [place], [address] Erythrocyte distribution width (RBC) [Ratio] 18.2 % High 11.6-14.6 [facility] Comment on above: Performed By: #### L 501.5200, L501.4020, L500.2500, L100.0100 ####[facility] [address] [place], [address] Hematocrit (Bld) [Volume fraction] 34.4 % Low 40-54 [facility] Comment on above: Performed By: #### L 501.5200, L501.4020, L500.2500, L100.0100 ####[facility] [address] [place], [address] Hemoglobin (Bld) [Mass/Vol] 10.2 g/dL Low 13.0-16.5 [facility] Comment on above: Performed By: #### L 501.5200, L501.4020, L500.2500, L100.0100 ####[facility] [address] [place], [address] IG% 0.400 Normal 0.0-0.9 [facility] Comment on above: Result Comment: IG% - Immature Granulocytes (promyelocytes, myelocytes andmetamyelocytes) > 1% indicates that a LEFT SHIFT is Present. Performed By: #### L 501.5200, L501.4020, L500.2500, L100.0100 ####[facility] [address] [place], [address] Lymphocytes/100 WBC (Bld) 14.5 % Low 19-41 [facility] Comment on above: Performed By: #### L 501.5200, L501.4020, L500.2500, L100.0100 ####[facility] [address] [place], [address] MCH (RBC) [Entitic mass] 22.7 pg Low 27.0-32.0 [facility] Comment on above: Performed By: #### L 501.5200, L501.4020, L500.2500, L100.0100 ####[facility] [address] [place], [address] MCHC (RBC) [Mass/Vol] 29.7 g/dL Low 32-[address] [facility] Comment on above: Performed By: #### L 501.5200, L501.4020, L500.2500, L100.0100 ####[facility] [address] [place], [address] MCV (RBC) [Entitic vol] 76.6 fL Low 80-94 [facility] Comment on above: Performed By: #### L 501.5200, L501.4020, L500.2500, L100.0100 ####[facility] [address] [place], [address] Monocytes/100 WBC (Bld) 10.1 % High 0-10 [facility] Comment on above: Performed By: #### L 501.5200, L501.4020, L500.2500, L100.0100 ####[facility] [address] [place], [address] Neutrophils/100 WBC (Bld) 72.0 % High 47-70 [facility] Comment on above: Performed By: #### L 501.5200, L501.4020, L500.2500, L100.0100 ####[facility] [address] [place], [address] Nucleated RBC (Bld) [#/Vol] 0 10*3/uL Normal 0-5 [facility] Comment on above: Performed By: #### L 501.5200, L501.4020, L500.2500, L100.0100 ####[facility] [address] [place], [address] Platelet mean volume (Bld) [Entitic vol] 10.1 fL Normal 6.2-12.0 [facility] Comment on above: Performed By: #### L 501.5200, L501.4020, L500.2500, L100.0100 ####[facility] [address] [place], [address] Platelets (Bld) [#/Vol] 254 10*3/uL Normal 150-450 [facility] Comment on above: Performed By: #### L 501.5200, L501.4020, L500.2500, L100.0100 ####[facility] [address] [place], [address] RBC (Bld) [#/Vol] 4.49 10*6/uL Low 4.6-6.2 [facility] Comment on above: Performed By: #### L 501.5200, L501.4020, L500.2500, L100.0100 ####[facility] [address] [place], [address] RDW SD 49.1 fl High 35.1-43.9 [facility] Comment on above: Performed By: #### L 501.5200, L501.4020, L500.2500, L100.0100 ####[facility] [address] [place], [address] WBC (Bld) [#/Vol] 9.4 10*3/uL Normal 4.4-11.0 [facility] Comment on above: Performed By: #### L 501.5200, L501.4020, L500.2500, L100.0100 ####[facility] [address] [place], [address] Chest 1 View (Portable)on Chest 1 View (Portable) Normal [facility] D-Dimer Quantitative (DVT/PE )on 02-26-2024 D-DIMER QUANT 0.44 FEU/ug/m Normal 0.27-0.49 [facility] Comment on above: Result Comment: NORM AL D-Dimer level (<0.50) indicates no DVT or PE. Performed By: #### L 300.8000 ####[facility] [address] [place], [address] Emergency Department Summary on 02-26-2024 Emergency Department Summary Normal [facility] L501.4020on 02-26-2024 TROPONIN-I HS 443 pg/mL Invalid Interpretation Code 3.0-78.0 [facility] Comment on above: Order Comment: 'TROP ' Serial specimen #1, #2 or #3: 2 Result Comment: Crit ical Result(s) Called at: 13:36:54 02/26/2024 by: CINDI Estevez. Results read back by same. Please Note: New Test Units and Gender Specific Reference Ranges. For more information see Policy Stat Procedure [place] High Sensitivity Troponin (TNIH) and attachments. Performed By: #### L 501.4020 ####[facility] [address] [place], [place], [address] TROPONIN-I HS 358 pg/mL Invalid Interpretation Code 3.0-78.0 [facility] Comment on above: Order Comment: 'TROP ' Serial specimen #1, #2 or #3: 1 Result Comment: Crit ical Result(s) Called at: 11:46:25 02/26/2024 by: CINDI to Kayla Vazquez. Results read back by same. Please Note: New Test Units and Gender Specific Reference Ranges. For more information see Policy Stat Procedure [place] High Sensitivity Troponin (TNIH) and attachments. Performed By: #### L 501.5200, L501.4020, L500.2500, L100.0100 ####[facility] [address] [place], [address] Magnesiumon 02-26-2024 Magnesium [Mass/Vol] 2.3 mg/dL Normal 1.6-2.6 [facility] Comment on above: Order Comment: 'TROP ' Serial specimen #1, #2 or #3: 1 Performed By: #### L 501.5200, L501.4020, L500.2500, L100.0100 ####[facility] [address] [place], [address] Office Visit Reporton 2023 Office Visit Report Normal [facility] Neurology Visit Reporton Neurology Visit Report Normal [facility] 36on 02-12-2024 36 Notes and [...] will determine when to resume Eliquis. Normal [facility] 36 This patient left a voicemail returning a call regarding his test results with Dr. Hutton Please advise :) Normal [facility] Gastroenterology Visit Repor ton 02-07-2024 Gastroenterology Visit Report Normal [facility] 36on 02-06-2024 36 Name of caller: Harpreet damon Contact phone number: [phone] Relationship to Patient: care team amanda Provider: Jose Antonio Practice: Endovascular Chief Complaint/Reason for Call: please send all lab work from September to fax [phone] [facility] Best time of day caller can be reached: any Patient advised that office/PCP has 24-48 business hours to return their call: No Normal [facility] CT HEAD NECK ANGIO W AND [...] carotid artery stenosis, Ischemic cerebrovascular accident Normal [facility] Thyroidon 02-06-2024 Thyroid Normal [facility] Progress Noteon 02-05-2024 Progress Note 02/05/24 Pt was seen today for CT Head/Neck w & wo contrast @ [facility] Pt had multiple attempts for IV placement from 2 different techs, with no success. Patient did inform us that he is a very hard stick and normally US is needed. Reached out to oncology for assistance but were extremely busy. Pt was advised to call central scheduling to reschedule at either [facility] or [facility] as they have US. He was initially scheduled at [facility]. The office was contacted on 02/05/24 to relay the information on the outcome of today's CT exam. Christine at the office was given this information. Normal [facility] Oncology Visit Reporton Oncology Visit Report Normal [facility] Basic Metabolic Profile (BMP )on 01-22-2024 BUN/CRE 25.4 RATIO High 10-20 [facility] Comment on above: Performed By: #### L 500.2500, L100.0100 ####[facility] [address] [place], [address] CA,Total 8.9 mg/dL Normal 8.5-10.1 [facility] Comment on above: Performed By: #### L 500.2500, L100.0100 ####[facility] [address] [place], [address] Chloride [Moles/Vol] 105 mmol/L Normal 98-107 [facility] Comment on above: Performed By: #### L 500.2500, L100.0100 ####[facility] [address] [place], [address] CO2 [Moles/Vol] 24.0 mmol/L Normal 21.0-32.0 [facility] Comment on above: Performed By: #### L 500.2500, L100.0100 ####[facility] [address] [place], [address] Creatinine [Mass/Vol] 1.22 mg/dL Normal 0.70-1.[address] [facility] Comment on above: Result Comment: The validity of the calculated GFR GFRAA in patients over70 years has not been determined. Clinical correlation isessential. Performed By: #### L 500.2500, L100.0100 ####[facility] [address] [place], [address] ECRCL 91.97 ml/min Normal [facility] Comment on above: Performed By: #### L 500.2500, L100.0100 ####[facility] [address] [place], [address] EST GFR - AA 78 mL/min Normal >60 [facility] Comment on above: Result Comment: Afri can [place] GFR Calc Performed By: #### L 500.2500, L100.0100 ####[facility] [address] [place], [address] GAP 7 Normal 5-15 [facility] Comment on above: Performed By: #### L 500.2500, L100.0100 ####[facility] [address] [place], [address] GFR/1.73 sq M.predicted among non-blacks MDRD (S/P/Bld) [Vol rate/Area] 64 mL/min/{1.73_m2} Normal >60 [facility] Comment on above: Result Comment: Non- GFR Calc Performed By: #### L 500.2500, L100.0100 ####[facility] [address] [place], [address] Glucose [Mass/Vol] 196 mg/dL High 74-106 [facility] Comment on above: Result Comment: Fast ing Glucose result greater than or equal to 126 mg/dLsuggests DIABETES MELLITUS per A.D.A. criteria. Performed By: #### L 500.2500, L100.0100 ####[facility] [address] [place], [address] Potassium [Moles/Vol] 4.1 mmol/L Normal 3.5-5.[address] [facility] Comment on above: Performed By: #### L 500.2500, L100.0100 ####[facility] [address] [place], [address] Sodium [Moles/Vol] 136 mmol/L Normal 136-145 [facility] Comment on above: Performed By: #### L 500.2500, L100.0100 ####[facility] [address] [place], [address] Urea nitrogen [Mass/Vol] 31 mg/dL High 7-18 [facility] Comment on above: Performed By: #### L 500.2500, L100.0100 ####[facility] [address] [place], [address] Bedside Glucoseon 01-21-2023 FINGERSTICK GLU 224 mg/dL High 74-106 [facility] Comment on above: Result Comment: ANI GEMENT OF PATIENT CARE PER NURSING PROTOCOL Performed By: #### L 501.080 ####[facility] [address] [place], [address] FINGERSTICK GLU 177 mg/dL High 74-106 [facility] Comment on above: Result Comment: ANI GEMENT OF PATIENT CARE PER NURSING PROTOCOL Performed By: #### L 501.080 ####[facility] [address] [place], [address] CBC W/Diff, Automatedon 10-2 Absolute Lymph 2.23 X10 3/uL Normal 0.83-4.51 [facility] Comment on above: Performed By: #### L 500.2500, L100.0100 ####[facility] [address] [place], [address] Absolute Neut 6.5 X10 3/uL Normal 2.0-7.7 [facility] Comment on above: Performed By: #### L 500.2500, L100.0100 ####[facility] [address] [place], [address] Basophils/100 WBC (Bld) 0.6 % Normal 0-1 [facility] Comment on above: Performed By: #### L 500.2500, L100.0100 ####[facility] [address] [place], [address] Eosinophils/100 WBC (Bld) 3.8 % Normal 0-5 [facility] Comment on above: Performed By: #### L 500.2500, L100.0100 ####[facility] [address] [place], [address] Erythrocyte distribution width (RBC) [Ratio] 17.5 % High 11.6-14.6 [facility] Comment on above: Performed By: #### L 500.2500, L100.0100 ####[facility] [address] [place], [address] Hematocrit (Bld) [Volume fraction] 30.9 % Low 40-54 [facility] Comment on above: Performed By: #### L 500.2500, L100.0100 ####[facility] [address] [place], [address] Hemoglobin (Bld) [Mass/Vol] 9.3 g/dL Low 13.0-16.5 [facility] Comment on above: Performed By: #### L 500.2500, L100.0100 ####[facility] [address] [place], [address] IG% 0.500 Normal 0.0-0.9 [facility] Comment on above: Result Comment: IG% - Immature Granulocytes (promyelocytes, myelocytes andmetamyelocytes) > 1% indicates that a LEFT SHIFT is Present. Performed By: #### L 500.2500, L100.0100 ####[facility] [address] [place], [address] Lymphocytes/100 WBC (Bld) 21.7 % Normal 19-41 [facility] Comment on above: Performed By: #### L 500.2500, L100.0100 ####[facility] [address] [place], [address] MCH (RBC) [Entitic mass] 23.4 pg Low 27.0-32.0 [facility] Comment on above: Performed By: #### L 500.2500, L100.0100 ####[facility] [address] [place], [address] MCHC (RBC) [Mass/Vol] 30.1 g/dL Low 32-[address] [facility] Comment on above: Performed By: #### L 500.2500, L100.0100 ####[facility] [address] [place], [address] MCV (RBC) [Entitic vol] 77.6 fL Low 80-94 [facility] Comment on above: Performed By: #### L 500.2500, L100.0100 ####[facility] [address] [place], [address] Monocytes/100 WBC (Bld) 10.7 % High 0-10 [facility] Comment on above: Performed By: #### L 500.2500, L100.0100 ####[facility] [address] [place], [address] Neutrophils/100 WBC (Bld) 62.7 % Normal 47-70 [facility] Comment on above: Performed By: #### L 500.2500, L100.0100 ####[facility] [address] [place], [address] Nucleated RBC (Bld) [#/Vol] 0 10*3/uL Normal 0-5 [facility] Comment on above: Performed By: #### L 500.2500, L100.0100 ####[facility] [address] [place], [address] Platelet mean volume (Bld) [Entitic vol] 9.8 fL Normal 6.2-12.0 [facility] Comment on above: Performed By: #### L 500.2500, L100.0100 ####[facility] [address] [place], [address] Platelets (Bld) [#/Vol] 273 10*3/uL Normal 150-450 [facility] Comment on above: Performed By: #### L 500.2500, L100.0100 ####[facility] [address] [place], [address] RBC (Bld) [#/Vol] 3.98 10*6/uL Low 4.6-6.2 [facility] Comment on above: Performed By: #### L 500.2500, L100.0100 ####[facility] [address] [place], [address] RDW SD 49.5 fl High 35.1-43.9 [facility] Comment on above: Performed By: #### L 500.2500, L100.0100 ####[facility] [address] [place], [address] WBC (Bld) [#/Vol] 10.3 10*3/uL Normal 4.4-11.0 [facility] Comment on above: Performed By: #### L 500.2500, L100.0100 ####[facility] [address] [place], [address] 36on 01-21-2024 36 Patient called to in form me he is in the hospital and will not be able to make his radiology appointment tomorrow. I told patient I will call and cancel for him and gave him the number to call and reschedule when he is ready. Normal [facility] Bedside Glucoseon 01-21-2024 FINGERSTICK GLU 136 mg/dL High 74-106 [facility] Comment on above: Result Comment: ANI GEMENT OF PATIENT CARE PER NURSING PROTOCOL Performed By: #### L 501.080 ####[facility] [address] [facility] [address] FINGERSTICK GLU 151 mg/dL High 74-106 [facility] Comment on above: Result Comment: ANI GEMENT OF PATIENT CARE PER NURSING PROTOCOL Performed By: #### L 501.080 ####[facility] [address] [facility] [address] FINGERSTICK GLU 152 mg/dL High 74-106 [facility] Comment on above: Result Comment: ANI GEMENT OF PATIENT CARE PER NURSING PROTOCOL Performed By: #### L 501.080 ####[facility] [address] [facility] [address] FINGERSTICK GLU 126 mg/dL High 74-106 [facility] Comment on above: Result Comment: ANI GEMENT OF PATIENT CARE PER NURSING PROTOCOL Performed By: #### L 501.080 ####[facility] [address] [facility] [address] CTA Chest W/WO Contraston CTA Chest W/WO Contrast Normal [facility] D-Dimer Quantitative (DVT/PE )on 01-21-2024 D-DIMER QUANT 2.48 FEU/ug/m Invalid Interpretation Code 0.27-0.49 [facility] Comment on above: Result Comment: D-Di tania ELEVATED (>0.49): Additional studies and clinicalassessments are indicated to conclude diagnosis of:Deep Vein Thrombosis (DVT) or Pulmonary Embolism (PE)CRITICAL VALUE CALLED TO OIAFPW17/22/24 0323 Hipolito Mitchell.RESULTS READ BACK BY SAME. Performed By: #### L 300.8000 ####[facility] [address] [place], [address] Emergency Department Summary on 01-21-2024 Emergency Department Summary Normal [facility] Ferritinon 01-21-2024 Ferritin [Mass/Vol] 53 ng/mL Normal 26-388 [facility] Comment on above: Performed By: #### L 503.6030, L503.2683 ####[facility] [address] [place], [address] H AND P Exam - Hospitaliston 01-21-2024 H&P Exam - Hospitalist Normal [facility] Hemoglobin A1con 01-21-2024 HbA1c (Bld) [Mass fraction] 8.0 % High 3.8-5.6 [facility] Comment on above: Result Comment: Norm al < 5.7 % Prediabetic 5.7 - 6.4 % Diabetic >or= 6.5 % Please note range changes. Performed By: #### L 5019987 ####[facility] [address] [place], [address] Iron+Iron Binding Capacityon 01-21-2024 Iron [Mass/Vol] 12 ug/dL Low 65-175 [facility] Comment on above: Performed By: #### L 503.6032, L503.1250 ####[facility] [address] [place], [address] IRON SATURATION 3.5 Low 15.0-55.0 [facility] Comment on above: Performed By: #### L 503.6052, L503.7150 ####[facility] [address] [place], [address] TIBC 347 ug/dL Normal 250-450 [facility] Comment on above: Performed By: #### L 503.6084, L503.8750 ####[facility] [address] [place], [address] Lactic Acidon 10-22-2024 Lactate [Moles/Vol] 1.6 mmol/L Normal 0.4-1.9 [facility] Comment on above: Order Comment: Y Performed By: #### L 503.6005 ####[facility] [address] [place], [address] Legionella Antigen Urineon 1 LEGU Normal [facility] Comment on above: Performed By: #### M 300.4600, M300.4500 ####[facility] [address] [place], [address] RESPIRATORY PANEL MOLECULARo n 01-21-2024 RP PANEL Normal [facility] Comment on above: Performed By: #### M 100.638 ####[facility] [address] [place], [address] Strep pneumoniae Antig(UR,CS F)on 01-21-2024 STPAG Normal [facility] Comment on above: Performed By: #### M 300.4600, M300.4500 ####[facility] [address] [place], [address] Venous Duplex US - Adam Extre mon 01-21-2024 Venous Duplex US - Adam Extrem Normal [facility] 12 Lead EKGon 01-20-2024 12 Lead EKG Normal [facility] BNP,B-Type NATRIURETIC PEPTI Sindy 01-20-2024 Natriuretic peptide B (Bld) [Mass/Vol] 130.8 pg/mL High 0-100 [facility] Comment on above: Performed By: #### L 501.5200, L503.6620 ####[facility] [address] [place], [address] Basic Metabolic Profile (BMP )on 01-20-2024 BUN/CRE 23.4 RATIO High 10-20 [facility] Comment on above: Order Comment: 'TROP ' Serial specimen #1, #2 or #3: 1 Performed By: #### L 501.4020, L500.2500, L100.0100 ####[facility] [address] [place], [address] CA,Total 9.0 mg/dL Normal 8.5-10.1 [facility] Comment on above: Order Comment: 'TROP ' Serial specimen #1, #2 or #3: 1 Performed By: #### L 501.4020, L500.2500, L100.0100 ####[facility] [address] [place], [address] Chloride [Moles/Vol] 107 mmol/L Normal 98-107 [facility] Comment on above: Order Comment: 'TROP ' Serial specimen #1, #2 or #3: 1 Performed By: #### L 501.4020, L500.2500, L100.0100 ####[facility] [address] [place], [address] CO2 [Moles/Vol] 22.0 mmol/L Normal 21.0-32.0 [facility] Comment on above: Order Comment: 'TROP ' Serial specimen #1, #2 or #3: 1 Performed By: #### L 501.4020, L500.2500, L100.0100 ####[facility] [address] [place], [address] Creatinine [Mass/Vol] 1.24 mg/dL Normal 0.70-1.[address] [facility] Comment on above: Order Comment: 'TROP ' Serial specimen #1, #2 or #3: 1 Result Comment: The validity of the calculated GFR GFRAA in patients over70 years has not been determined. Clinical correlation isessential. Performed By: #### L 501.4020, L500.2500, L100.0100 ####[facility] [address] [place], [address] ECRCL 90.85 ml/min Normal [facility] Comment on above: Order Comment: 'TROP ' Serial specimen #1, #2 or #3: 1 Performed By: #### L 501.4020, L500.2500, L100.0100 ####[facility] [address] [place], [address] EST GFR - AA 76 mL/min Normal >60 [facility] Comment on above: Order Comment: 'TROP ' Serial specimen #1, #2 or #3: 1 Result Comment: Afri can [place]ian GFR Calc Performed By: #### L 501.4020, L500.2500, L100.0100 ####[facility] [address] [place], [address] GAP 6 Normal 5-15 [facility] Comment on above: Order Comment: 'TROP ' Serial specimen #1, #2 or #3: 1 Performed By: #### L 501.4020, L500.2500, L100.0100 ####[facility] [address] [place], [address] GFR/1.73 sq M.predicted among non-blacks MDRD (S/P/Bld) [Vol rate/Area] 63 mL/min/{1.73_m2} Normal >60 [facility] Comment on above: Order Comment: 'TROP ' Serial specimen #1, #2 or #3: 1 Result Comment: Non- GFR Calc Performed By: #### L 501.4020, L500.2500, L100.0100 ####[facility] [address] [place], [address] Glucose [Mass/Vol] 196 mg/dL High 74-106 [facility] Comment on above: Order Comment: 'TROP ' Serial specimen #1, #2 or #3: 1 Result Comment: Fast ing Glucose result greater than or equal to 126 mg/dLsuggests DIABETES MELLITUS per A.D.A. criteria. Performed By: #### L 501.4020, L500.2500, L100.0100 ####[facility] [address] [place], [address] Potassium [Moles/Vol] 4.3 mmol/L Normal 3.5-5.[address] [facility] Comment on above: Order Comment: 'TROP ' Serial specimen #1, #2 or #3: 1 Result Comment: Mode rate Hemolysis, Result may be falsely increased. Performed By: #### L 501.4020, L500.2500, L100.0100 ####[facility] [address] [place], [address] Sodium [Moles/Vol] 135 mmol/L Low 136-145 [facility] Comment on above: Order Comment: 'TROP ' Serial specimen #1, #2 or #3: 1 Performed By: #### L 501.4020, L500.2500, L100.0100 ####[facility] [address] [place], [address] Urea nitrogen [Mass/Vol] 29 mg/dL High 7-18 [facility] Comment on above: Order Comment: 'TROP ' Serial specimen #1, #2 or #3: 1 Performed By: #### L 501.4020, L500.2500, L100.0100 ####[facility] [address] [place], [address] CBC W/Diff, Automatedon 10-2 -2023 Absolute Lymph 1.71 X10 3/uL Normal 0.83-4.51 [facility] Comment on above: Performed By: #### L 501.4020, L500.2500, L100.0100 ####[facility] [address] [place], [address] Absolute Neut 7.0 X10 3/uL Normal 2.0-7.7 [facility] Comment on above: Performed By: #### L 501.4020, L500.2500, L100.0100 ####[facility] [address] [place], [address] Basophils/100 WBC (Bld) 0.7 % Normal 0-1 [facility] Comment on above: Performed By: #### L 501.4020, L500.2500, L100.0100 ####[facility] [address] [place], [address] Eosinophils/100 WBC (Bld) 2.9 % Normal 0-5 [facility] Comment on above: Performed By: #### L 501.4020, L500.2500, L100.0100 ####[facility] [address] [place], [address] Erythrocyte distribution width (RBC) [Ratio] 17.1 % High 11.6-14.6 [facility] Comment on above: Performed By: #### L 501.4020, L500.2500, L100.0100 ####[facility] [address] [place], [address] Hematocrit (Bld) [Volume fraction] 31.1 % Low 40-54 [facility] Comment on above: Performed By: #### L 501.4020, L500.2500, L100.0100 ####[facility] [address] [place], [address] Hemoglobin (Bld) [Mass/Vol] 9.5 g/dL Low 13.0-16.5 [facility] Comment on above: Performed By: #### L 501.4020, L500.2500, L100.0100 ####[facility] [address] [place], [address] IG% 0.500 Normal 0.0-0.9 [facility] Comment on above: Result Comment: IG% - Immature Granulocytes (promyelocytes, myelocytes andmetamyelocytes) > 1% indicates that a LEFT SHIFT is Present. Performed By: #### L 501.4020, L500.2500, L100.0100 ####[facility] [address] [place], [address] Lymphocytes/100 WBC (Bld) 16.8 % Low 19-41 [facility] Comment on above: Performed By: #### L 501.4020, L500.2500, L100.0100 ####[facility] [address] [place], [address] MCH (RBC) [Entitic mass] 23.4 pg Low 27.0-32.0 [facility] Comment on above: Performed By: #### L 501.4020, L500.2500, L100.0100 ####[facility] [address] [place], [address] MCHC (RBC) [Mass/Vol] 30.5 g/dL Low 32-[address] [facility] Comment on above: Performed By: #### L 501.4020, L500.2500, L100.0100 ####[facility] [address] [place], [address] MCV (RBC) [Entitic vol] 76.6 fL Low 80-94 [facility] Comment on above: Performed By: #### L 501.4020, L500.2500, L100.0100 ####[facility] [address] [place], [address] Monocytes/100 WBC (Bld) 10.6 % High 0-10 [facility] Comment on above: Performed By: #### L 501.4020, L500.2500, L100.0100 ####[facility] [address] [place], [address] Neutrophils/100 WBC (Bld) 68.5 % Normal 47-70 [facility] Comment on above: Performed By: #### L 501.4020, L500.2500, L100.0100 ####[facility] [address] [place], [address] Nucleated RBC (Bld) [#/Vol] 0 10*3/uL Normal 0-5 [facility] Comment on above: Performed By: #### L 501.4020, L500.2500, L100.0100 ####[facility] [address] [place], [address] Platelet mean volume (Bld) [Entitic vol] 9.5 fL Normal 6.2-12.0 [facility] Comment on above: Performed By: #### L 501.4020, L500.2500, L100.0100 ####[facility] [address] [place], [address] Platelets (Bld) [#/Vol] 267 10*3/uL Normal 150-450 [facility] Comment on above: Performed By: #### L 501.4020, L500.2500, L100.0100 ####[facility] [address] [place], [address] RBC (Bld) [#/Vol] 4.06 10*6/uL Low 4.6-6.2 [facility] Comment on above: Performed By: #### L 501.4020, L500.2500, L100.0100 ####[facility] [address] [place], [address] RDW SD 47.4 fl High 35.1-43.9 [facility] Comment on above: Performed By: #### L 501.4020, L500.2500, L100.0100 ####[facility] [address] [place], [address] WBC (Bld) [#/Vol] 10.2 10*3/uL Normal 4.4-11.0 [facility] Comment on above: Performed By: #### L 501.4020, L500.2500, L100.0100 ####[facility] [address] [place], [address] Chest PA and Lateralon 01-19 Chest PA and Lateral Normal [facility] L501.4020on 01-20-2024 TROPONIN-I HS 24 pg/mL Normal 3.0-78.0 [facility] Comment on above: Order Comment: 'TROP ' Serial specimen #1, #2 or #3: 1 Result Comment: Kodi monterroso Note: New Test Units and Gender Specific Reference Ranges. For more information see Policy Stat Procedure [place] High Sensitivity Troponin (TNIH) and attachments. Performed By: #### L 501.4020, L500.2500, L100.0100 ####[facility] [address] [place], [address] M100.678on 01-20-2024 M100.678 Pending SARS-CoV-2 (COVID 19) Negative INFLUENZA A Negative INFLUENZA B Negative RSV PCR Negative Normal [facility] Comment on above: Performed By: #### M 100.678 ####[facility] [address] [place], [address] Magnesiumon 01-20-2024 Magnesium [Mass/Vol] 1.7 mg/dL Normal 1.6-2.6 [facility] Comment on above: Result Comment: Mode rate Hemolysis, Result may be falsely increased. Performed By: #### L 501.5200, L503.6620 ####[facility] [address] [place], [address] Office Visit Reporton 2023 Office Visit Report Normal [facility] 36on 01-15-2024 36 Called patient to in form him of his appointment for CTA ordered by Dr. Culp. Patient verbalized understanding appointment schduled for 01/22/2024 at 1045 at the [place] location. Patient instructed to stop eating 4 hours prior to testing and to drink 16oz water 1 hour prior. Patient questioned if we received imaging from [facility]. Will follow up to confirm they are uploaded to PACS. Normal [facility] 36on 01-10-2024 36 [id number] submitted through [employer] phone call Normal [facility] CBC W/Diff, Automatedon 12-30 Absolute Lymph 1.87 X10 3/uL Normal 0.83-4.51 [facility] Comment on above: Order Comment: Order Date: 01/10/24Order Info: 018- - CBCDOrder Info: 4679-7 - RETIC Performed By: #### L 503.6150, L100.9950, L503.0105, L503.6075, L100.0100, L506.0250, L503.6550 ####[facility] [address] [place], [address] Absolute Neut 5.7 X10 3/uL Normal 2.0-7.7 [facility] Comment on above: Order Comment: Order Date: 01/10/24Order Info: 018- - CBCDOrder Info: 4679-7 - RETIC Performed By: #### L 503.6150, L100.9950, L503.0105, L503.6075, L100.0100, L506.0250, L503.6550 ####[facility] [address] [place], [address] Basophils/100 WBC (Bld) 0.8 % Normal 0-1 [facility] Comment on above: Order Comment: Order Date: 01/10/24Order Info: 0184- - CBCDOrder Info: 4679-7 - RETIC Performed By: #### L 503.6150, L100.9950, L503.0105, L503.6075, L100.0100, L506.0250, L503.6550 ####[facility] [address] [place], [address] Eosinophils/100 WBC (Bld) 2.6 % Normal 0-5 [facility] Comment on above: Order Comment: Order Date: 01/10/24Order Info: 0184- - CBCDOrder Info: 4679-7 - RETIC Performed By: #### L 503.6150, L100.9950, L503.0105, L503.6075, L100.0100, L506.0250, L503.6550 ####[facility] [address] [place], [address] Erythrocyte distribution width (RBC) [Ratio] 17.3 % High 11.6-14.6 [facility] Comment on above: Order Comment: Order Date: 01/10/24Order Info: 018- - CBCDOrder Info: 4679-7 - RETIC Performed By: #### L 503.6150, L100.9950, L503.0105, L503.6075, L100.0100, L506.0250, L503.6550 ####[facility] [address] [place], [address] Hematocrit (Bld) [Volume fraction] 37.0 % Low 40-54 [facility] Comment on above: Order Comment: Order Date: 01/10/24Order Info: 183-04 - CBCDOrder Info: 4679-7 - RETIC Performed By: #### L 503.6150, L100.9950, L503.0105, L503.6075, L100.0100, L506.0250, L503.6550 ####[facility] [address] [place], [address] Hemoglobin (Bld) [Mass/Vol] 10.7 g/dL Low 13.0-16.5 [facility] Comment on above: Order Comment: Order Date: 01/10/24Order Info: [id number] - CBCDOrder Info: 4679-7 - RETIC Performed By: #### L 503.6150, L100.9950, L503.0105, L503.6075, L100.0100, L506.0250, L503.6550 ####[facility] [address] [place], [address] IG% 0.300 Normal 0.0-0.9 [facility] Comment on above: Order Comment: Order Date: 01/10/24Order Info: 018- - CBCDOrder Info: 4679-7 - RETIC Result Comment: IG% - Immature Granulocytes (promyelocytes, myelocytes andmetamyelocytes) > 1% indicates that a LEFT SHIFT is Present. Performed By: #### L 503.6150, L100.9950, L503.0105, L503.6075, L100.0100, L506.0250, L503.6550 ####[facility] [address] [place], [address] Lymphocytes/100 WBC (Bld) 21.4 % Normal 19-41 [facility] Comment on above: Order Comment: Order Date: 01/10/24Order Info: 018- - CBCDOrder Info: 4679-7 - RETIC Performed By: #### L 503.6150, L100.9950, L503.0105, L503.6075, L100.0100, L506.0250, L503.6550 ####[facility] [address] [place], [address] MCH (RBC) [Entitic mass] 22.8 pg Low 27.0-32.0 [facility] Comment on above: Order Comment: Order Date: 01/10/24Order Info: 018- - CBCDOrder Info: 4679-7 - RETIC Performed By: #### L 503.6150, L100.9950, L503.0105, L503.6075, L100.0100, L506.0250, L503.6550 ####[facility] [address] [place], [address] MCHC (RBC) [Mass/Vol] 28.9 g/dL Low 32-[address] [facility] Comment on above: Order Comment: Order Date: 01/10/24Order Info: [id number] - CBCDOrder Info: 4679-7 - RETIC Performed By: #### L 503.6150, L100.9950, L503.0105, L503.6075, L100.0100, L506.0250, L503.6550 ####[facility] [address] [place], [address] MCV (RBC) [Entitic vol] 78.7 fL Low 80-94 [facility] Comment on above: Order Comment: Order Date: 01/10/24Order Info: 018- - CBCDOrder Info: 4679-7 - RETIC Performed By: #### L 503.6150, L100.9950, L503.0105, L503.6075, L100.0100, L506.0250, L503.6550 ####[facility] [address] [place], [address] Monocytes/100 WBC (Bld) 9.9 % Normal 0-10 [facility] Comment on above: Order Comment: Order Date: 01/10/24Order Info: [id number] - CBCDOrder Info: 4679-7 - RETIC Performed By: #### L 503.6150, L100.9950, L503.0105, L503.6075, L100.0100, L506.0250, L503.6550 ####[facility] [address] [place], [address] Neutrophils/100 WBC (Bld) 65.0 % Normal 47-70 [facility] Comment on above: Order Comment: Order Date: 01/10/24Order Info: 01806-30 - CBCDOrder Info: 4679-7 - RETIC Performed By: #### L 503.6150, L100.9950, L503.0105, L503.6075, L100.0100, L506.0250, L503.6550 ####[facility] [address] [place], [address] Nucleated RBC (Bld) [#/Vol] 0 10*3/uL Normal 0-5 [facility] Comment on above: Order Comment: Order Date: 01/10/24Order Info: 01806-30 - CBCDOrder Info: 4679-7 - RETIC Performed By: #### L 503.6150, L100.9950, L503.0105, L503.6075, L100.0100, L506.0250, L503.6550 ####[facility] [address] [place], [address] Platelet mean volume (Bld) [Entitic vol] 10.2 fL Normal 6.2-12.0 [facility] Comment on above: Order Comment: Order Date: 01/10/24Order Info: 0184-1 - CBCDOrder Info: 4679-7 - RETIC Performed By: #### L 503.6150, L100.9950, L503.0105, L503.6075, L100.0100, L506.0250, L503.6550 ####[facility] [address] [place], [address] Platelets (Bld) [#/Vol] 306 10*3/uL Normal 150-450 [facility] Comment on above: Order Comment: Order Date: 01/10/24Order Info: 0184-1 - CBCDOrder Info: 4679-7 - RETIC Performed By: #### L 503.6150, L100.9950, L503.0105, L503.6075, L100.0100, L506.0250, L503.6550 ####[facility] [address] [place], [address] RBC (Bld) [#/Vol] 4.70 10*6/uL Normal 4.6-6.2 [facility] Comment on above: Order Comment: Order Date: 01/10/24Order Info: 0184-1 - CBCDOrder Info: 4679-7 - RETIC Performed By: #### L 503.6150, L100.9950, L503.0105, L503.6075, L100.0100, L506.0250, L503.6550 ####[facility] [address] [place], [address] RDW SD 49.7 fl High 35.1-43.9 [facility] Comment on above: Order Comment: Order Date: 01/10/24Order Info: 0184- - CBCDOrder Info: 4679-7 - RETIC Performed By: #### L 503.6150, L100.9950, L503.0105, L503.6075, L100.0100, L506.0250, L503.6550 ####[facility] [address] [place], [address] WBC (Bld) [#/Vol] 8.7 10*3/uL Normal 4.4-11.0 [facility] Comment on above: Order Comment: Order Date: 01/10/24Order Info: 01806-30 - CBCDOrder Info: 4679-7 - RETIC Performed By: #### L 503.6150, L100.9950, L503.0105, L503.6075, L100.0100, L506.0250, L503.6550 ####[facility] [address] [place], [address] Ferritinon 01-10-2024 Ferritin [Mass/Vol] 28 ng/mL Normal 26-388 [facility] Comment on above: Order Comment: Order Date: 01/10/24Order Info: 2499- - TIBCOrder Info: [id number] - FEOrder Info: 2275-4 - FEROrder Info: 228-8 - FOLSN Performed By: #### L 503.6150, L100.9950, L503.0105, L503.6075, L100.0100, L506.0250, L503.6550 ####[facility] [address] [place], [address] Folates, (Folic Acid)on 12-30 FOLATES 5.30 ng/mL Normal 3.1-55.4 [facility] Comment on above: Order Comment: Order Date: 01/10/24Order Info: 2499-09 - TIBCOrder Info: 2497-06 - FEOrder Info: 4 - FEROrder Info: 2283-10 - FOLSN Performed By: #### L 503.6150, L100.9950, L503.0105, L503.6075, L100.0100, L506.0250, L503.6550 ####[facility] [address] [place], [address] Ironon 01-10-2024 Iron [Mass/Vol] 31 ug/dL Low 65-175 [facility] Comment on above: Order Comment: Order Date: 01/10/24Order Info: 2499-7 - TIBCOrder Info: 2497-06 - FEOrder Info: 2275-07 - FEROrder Info: 2283-10 - FOLSN Performed By: #### L 503.6150, L100.9950, L503.0105, L503.6075, L100.0100, L506.0250, L503.6550 ####[facility] [address] [place], [address] Iron Binding Capacity,Totalo n 01-10-2024 TIBC 445 ug/dL Normal 250-450 [facility] Comment on above: Order Comment: Order Date: 01/10/24Order Info: 7 - TIBCOrder Info: 2497-06 - FEOrder Info: 2275-07 - FEROrder Info: 2283-10 - FOLSN Performed By: #### L 503.6150, L100.9950, L503.0105, L503.6075, L100.0100, L506.0250, L503.6550 ####[facility] [address] [place], [address] Retic Panelon 01-10-2024 IM RET FRACTION 26.40 High 3.00-15.90 [facility] Comment on above: Order Comment: Order Date: 01/10/24Order Info: 0184-1 - CBCDOrder Info: 4679-7 - RETIC Performed By: #### L 503.6150, L100.9950, L503.0105, L503.6075, L100.0100, L506.0250, L503.6550 ####[facility] [address] [place], [place], [address] RET-HE 22.0 pg Low 30-35 [facility] Comment on above: Order Comment: Order Date: 01/10/24Order Info: 0184-1 - CBCDOrder Info: 4679-7 - RETIC Performed By: #### L 503.6150, L100.9950, L503.0105, L503.6075, L100.0100, L506.0250, L503.6550 ####[facility] [address] [place], [place], [address] Retic Count 2.36 High 0.5-1.5 [facility] Comment on above: Order Comment: Order Date: 01/10/24Order Info: 0184-1 - CBCDOrder Info: 4679-7 - RETIC Performed By: #### L 503.6150, L100.9950, L503.0105, L503.6075, L100.0100, L506.0250, L503.6550 ####[facility] [address] [place], [place], [address] Vitamin B12on 01-10-2024 Cobalamin (Vitamin B12) [Mass/Vol] 510 pg/mL Normal 211-911 [facility] Comment on above: Order Comment: Order Date: 01/10/24Order Info: 2132-9 - B12 Performed By: #### L 503.6150, L100.9950, L503.0105, L503.6075, L100.0100, L506.0250, L503.6550 ####[facility] [address] [place], [place], [address] Office Visiton 01-06-2024 Follow-up visit [id number] Krunal Leos 1965 M Date Provider Department Center 01/06/2024 [facility] NRO None No family history on file Level of Service:70843 [place] OFFICE/OUTPATIENT ESTABLISHED MOD MDM 30 MIN Reason for Visit and Comments: New Patient [542] - New stroke 10/02, multiple mini strokes since. No current deficits per patient. Normal [facility] Progress Noteon 01-06-2024 Progress Note History of Present Illness: 58 yo man here for fu stroke and bilateral ICA stenosis. He originally presented 09/2023 for left hemiparesis and was transferred to [facility] from [facility]. He was found to have [...] episode of left hemiparesis. He went to [facility] and was found to have increased stroke burden of the right hemisphere. Vascular surgery was consulted and no surgical procedure was recommended. He had a 3rd event of left hemiparesis the following week and a CT was done at [facility]. At that time clopidogrel was added (in addition to ASA and Eliquis). The patient returned to normal and was discharged from the ED to home. 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 He is a nonsmoker. He does [...] 2023., Disp: 30 tablet, Rfl: 0 HYDROcodone-acetaminophen ([place]) 5-325 MG tablet, Take 1 tablet by [...] , Rfl: ergocalciferol (Vitamin D2) 1.25 MG (19191 UT) capsule, Take 1 capsule by mouth [...] Negative. Respirato (more content not included)... Normal [facility] Stress Reporton 01-01-2024 Stress Report Normal [facility] Pulmonary Visit Reporton Pulmonary Visit Report Normal [facility] Office Visit Reporton 2023 [facility] Visit [facility] NATRIURETIC PEPTI Sindy 12-12-2023 Natriuretic peptide B (Bld) [Mass/Vol] 92.2 pg/mL Normal 0-100 [facility] Comment on above: Performed By: #### L 500.4050, L501.5200, L100.0100, L503.6620, L506.0400, L501.9520 ####[facility] [address] [place], [address] CBC W/Diff, Automatedon 11-30 2-2023 Absolute Lymph 1.70 X10 3/uL Normal 0.83-4.51 [facility] Comment on above: Performed By: #### L 500.4050, L501.5200, L100.0100, L503.6620, L506.0400, L501.9520 ####[facility] [address] [place], [address] Absolute Neut 5.8 X10 3/uL Normal 2.0-7.7 [facility] Comment on above: Performed By: #### L 500.4050, L501.5200, L100.0100, L503.6620, L506.0400, L501.9520 ####[facility] [address] [place], [address] Basophils/100 WBC (Bld) 0.8 % Normal 0-1 [facility] Comment on above: Performed By: #### L 500.4050, L501.5200, L100.0100, L503.6620, L506.0400, L501.9520 ####[facility] [address] [place], [address] Eosinophils/100 WBC (Bld) 2.8 % Normal 0-5 [facility] Comment on above: Performed By: #### L 500.4050, L501.5200, L100.0100, L503.6620, L506.0400, L501.9520 ####[facility] [address] [place], [address] Erythrocyte distribution width (RBC) [Ratio] 18.5 % High 11.6-14.6 [facility] Comment on above: Performed By: #### L 500.4050, L501.5200, L100.0100, L503.6620, L506.0400, L501.9520 ####[facility] [address] [place], [address] Hematocrit (Bld) [Volume fraction] 33.3 % Low 40-54 [facility] Comment on above: Performed By: #### L 500.4050, L501.5200, L100.0100, L503.6620, L506.0400, L501.9520 ####[facility] [address] [place], [address] Hemoglobin (Bld) [Mass/Vol] 10.0 g/dL Low 13.0-16.5 [facility] Comment on above: Performed By: #### L 500.4050, L501.5200, L100.0100, L503.6620, L506.0400, L501.9520 ####[facility] [address] [place], [address] IG% 0.500 Normal 0.0-0.9 [facility] Comment on above: Result Comment: IG% - Immature Granulocytes (promyelocytes, myelocytes andmetamyelocytes) > 1% indicates that a LEFT SHIFT is Present. Performed By: #### L 500.4050, L501.5200, L100.0100, L503.6620, L506.0400, L501.9520 ####[facility] [address] [place], [address] Lymphocytes/100 WBC (Bld) 19.6 % Normal 19-41 [facility] Comment on above: Performed By: #### L 500.4050, L501.5200, L100.0100, L503.6620, L506.0400, L501.9520 ####[facility] [address] [place], [address] MCH (RBC) [Entitic mass] 23.9 pg Low 27.0-32.0 [facility] Comment on above: Performed By: #### L 500.4050, L501.5200, L100.0100, L503.6620, L506.0400, L501.9520 ####[facility] [address] [place], [address] MCHC (RBC) [Mass/Vol] 30.0 g/dL Low 32-[address] [facility] Comment on above: Performed By: #### L 500.4050, L501.5200, L100.0100, L503.6620, L506.0400, L501.9520 ####[facility] [address] [place], [address] MCV (RBC) [Entitic vol] 79.7 fL Low 80-94 [facility] Comment on above: Performed By: #### L 500.4050, L501.5200, L100.0100, L503.6620, L506.0400, L501.9520 ####[facility] [address] [place], [address] Monocytes/100 WBC (Bld) 9.9 % Normal 0-10 [facility] Comment on above: Performed By: #### L 500.4050, L501.5200, L100.0100, L503.6620, L506.0400, L501.9520 ####[facility] [address] [place], [address] Neutrophils/100 WBC (Bld) 66.4 % Normal 47-70 [facility] Comment on above: Performed By: #### L 500.4050, L501.5200, L100.0100, L503.6620, L506.0400, L501.9520 ####[facility] [address] [place], [address] Nucleated RBC (Bld) [#/Vol] 0 10*3/uL Normal 0-5 [facility] Comment on above: Performed By: #### L 500.4050, L501.5200, L100.0100, L503.6620, L506.0400, L501.9520 ####[facility] [address] [place], [address] Platelet mean volume (Bld) [Entitic vol] 9.9 fL Normal 6.2-12.0 [facility] Comment on above: Performed By: #### L 500.4050, L501.5200, L100.0100, L503.6620, L506.0400, L501.9520 ####[facility] [address] [place], [address] Platelets (Bld) [#/Vol] 274 10*3/uL Normal 150-450 [facility] Comment on above: Performed By: #### L 500.4050, L501.5200, L100.0100, L503.6620, L506.0400, L501.9520 ####[facility] [address] [place], [address] RBC (Bld) [#/Vol] 4.18 10*6/uL Low 4.6-6.2 [facility] Comment on above: Performed By: #### L 500.4050, L501.5200, L100.0100, L503.6620, L506.0400, L501.9520 ####[facility] [address] [place], [address] RDW SD 52.7 fl High 35.1-43.9 [facility] Comment on above: Performed By: #### L 500.4050, L501.5200, L100.0100, L503.6620, L506.0400, L501.9520 ####[facility] [address] [place], [address] WBC (Bld) [#/Vol] 8.7 10*3/uL Normal 4.4-11.0 [facility] Comment on above: Performed By: #### L 500.4050, L501.5200, L100.0100, L503.6620, L506.0400, L501.9520 ####[facility] [address] [place], [address] Comprehensive Metabolic Prof kson 12-12-2023 Albumin [Mass/Vol] 3.2 g/dL Normal 3.2-5.0 [facility] Comment on above: Performed By: #### L 500.4050, L501.5200, L100.0100, L503.6620, L506.0400, L501.9520 ####[facility] [address] [place], [address] Albumin/Globulin [Mass ratio] 0.7 {ratio} Low 0.9-2.4 [facility] Comment on above: Performed By: #### L 500.4050, L501.5200, L100.0100, L503.6620, L506.0400, L501.9520 ####[facility] [address] [place], [address] ALK P 79 U/L Normal 45-117 [facility] Comment on above: Performed By: #### L 500.4050, L501.5200, L100.0100, L503.6620, L506.0400, L501.9520 ####[facility] [address] [place], [address] ALT [Catalytic activity/Vol] 25 U/L Normal 16-61 [facility] Comment on above: Performed By: #### L 500.4050, L501.5200, L100.0100, L503.6620, L506.0400, L501.9520 ####[facility] [address] [place], [address] AST [Catalytic activity/Vol] 27 U/L Normal 15-37 [facility] Comment on above: Performed By: #### L 500.4050, L501.5200, L100.0100, L503.6620, L506.0400, L501.9520 ####[facility] [address] [place], [address] Bilirubin [Mass/Vol] 0.60 mg/dL Normal 0.20-1.00 [facility] Comment on above: Result Comment: For patients on eltrombopag therapy, use of Dimension [place] TBIL is not recommended. Performed By: #### L 500.4050, L501.5200, L100.0100, L503.6620, L506.0400, L501.9520 ####[facility] [address] [place], [address] BUN/CRE 21.7 RATIO High 10-20 [facility] Comment on above: Performed By: #### L 500.4050, L501.5200, L100.0100, L503.6620, L506.0400, L501.9520 ####[facility] [address] [place], [address] CA,Total 9.3 mg/dL Normal 8.5-10.1 [facility] Comment on above: Performed By: #### L 500.4050, L501.5200, L100.0100, L503.6620, L506.0400, L501.9520 ####[facility] [address] [place], [address] Chloride [Moles/Vol] 110 mmol/L High 98-107 [facility] Comment on above: Performed By: #### L 500.4050, L501.5200, L100.0100, L503.6620, L506.0400, L501.9520 ####[facility] [address] [place], [address] CO2 [Moles/Vol] 19.0 mmol/L Low 21.0-32.0 [facility] Comment on above: Performed By: #### L 500.4050, L501.5200, L100.0100, L503.6620, L506.0400, L501.9520 ####[facility] [address] [place], [address] Creatinine [Mass/Vol] 1.20 mg/dL Normal 0.70-1.[address] [facility] Comment on above: Result Comment: The validity of the calculated GFR GFRAA in patients over70 years has not been determined. Clinical correlation isessential. Performed By: #### L 500.4050, L501.5200, L100.0100, L503.6620, L506.0400, L501.9520 ####[facility] [address] [place], [address] EST GFR - AA 79 mL/min Normal >60 [facility] Comment on above: Result Comment: Afri can [place] GFR Calc Performed By: #### L 500.4050, L501.5200, L100.0100, L503.6620, L506.0400, L501.9520 ####[facility] [address] [place], [address] GAP 10 Normal 5-15 [facility] Comment on above: Performed By: #### L 500.4050, L501.5200, L100.0100, L503.6620, L506.0400, L501.9520 ####[facility] [address] [place], [address] GFR/1.73 sq M.predicted among non-blacks MDRD (S/P/Bld) [Vol rate/Area] 66 mL/min/{1.73_m2} Normal >60 [facility] Comment on above: Result Comment: Non- GFR Calc Performed By: #### L 500.4050, L501.5200, L100.0100, L503.6620, L506.0400, L501.9520 ####[facility] [address] [place], [address] Globulin (S) [Mass/Vol] 4.9 g/dL High 2.2-4.2 [facility] Comment on above: Performed By: #### L 500.4050, L501.5200, L100.0100, L503.6620, L506.0400, L501.9520 ####[facility] [address] [place], [address] Glucose [Mass/Vol] 155 mg/dL High 74-106 [facility] Comment on above: Result Comment: Fast ing Glucose result greater than or equal to 126 mg/dLsuggests DIABETES MELLITUS per A.D.A. criteria. Performed By: #### L 500.4050, L501.5200, L100.0100, L503.6620, L506.0400, L501.9520 ####[facility] [address] [place], [address] Potassium [Moles/Vol] 3.9 mmol/L Normal 3.5-5.[address] [facility] Comment on above: Performed By: #### L 500.4050, L501.5200, L100.0100, L503.6620, L506.0400, L501.9520 ####[facility] [address] [place], [address] Sodium [Moles/Vol] 139 mmol/L Normal 136-145 [facility] Comment on above: Performed By: #### L 500.4050, L501.5200, L100.0100, L503.6620, L506.0400, L501.9520 ####[facility] [address] [place], [address] T PROT 8.1 g/dL Normal 6.4-8.2 [facility] Comment on above: Performed By: #### L 500.4050, L501.5200, L100.0100, L503.6620, L506.0400, L501.9520 ####[facility] [address] [place], [address] Urea nitrogen [Mass/Vol] 26 mg/dL High 7-18 [facility] Comment on above: Performed By: #### L 500.4050, L501.5200, L100.0100, L503.6620, L506.0400, L501.9520 ####[facility] [address] [place], [address] Gastroenterology Visit Repor ton 12-12-2023 Gastroenterology Visit Report Normal [facility] Magnesiumon 12-12-2023 Magnesium [Mass/Vol] 2.1 mg/dL Normal 1.6-2.6 [facility] Comment on above: Performed By: #### L 500.4050, L501.5200, L100.0100, L503.6620, L506.0400, L501.9520 ####[facility] [address] [place], [address] T4 Free Directon 12-12-2023 T4 FREE DIRECT 1.29 ng/dL Normal 0.76-1.46 [facility] Comment on above: Performed By: #### L 500.4050, L501.5200, L100.0100, L503.6620, L506.0400, L501.9520 ####[facility] [address] [place], [address] Thyroid Stim Hormone (TSH)on 12-12-2023 TSH 0.800 uIU/mL Normal 0.358-3.74 0 [facility] Comment on above: Performed By: #### L 500.4050, L501.5200, L100.0100, L503.6620, L506.0400, L501.9520 ####[facility] [address] [place], [address] MR/BMS.BVSon 12-06-2023 MR/BMS.BVS Normal [facility] Endocrinology Visit Reporton 11-27-2023 Endocrinology Visit Report Normal [facility] Bedside Glucoseon 11-18-2023 FINGERSTICK GLU 103 mg/dL Normal 74-106 [facility] Comment on above: Result Comment: ANI BRADFORD OF PATIENT CARE PER NURSING PROTOCOL Performed By: #### L 501.080 ####[facility] [address] [place], [address] Office Visit Reporton 2023 Office Visit Report Normal [facility] 12 Lead EKGon 11-16-2023 12 Lead EKG Normal [facility] Basic Metabolic Profile (BMP )on 11-16-2023 BUN/CRE 18.2 RATIO Normal 10-20 [facility] Comment on above: Order Comment: 'TROP ' Serial specimen #1, #2 or #3: 1 Performed By: #### L 100.0100, L501.4020, L300.4310, L500.2500, L300.3900 ####[facility] [address] [place], [address] CA,Total 8.7 mg/dL Normal 8.5-10.1 [facility] Comment on above: Order Comment: 'TROP ' Serial specimen #1, #2 or #3: 1 Performed By: #### L 100.0100, L501.4020, L300.4310, L500.2500, L300.3900 ####[facility] [address] [place], [address] Chloride [Moles/Vol] 107 mmol/L Normal 98-107 [facility] Comment on above: Order Comment: 'TROP ' Serial specimen #1, #2 or #3: 1 Performed By: #### L 100.0100, L501.4020, L300.4310, L500.2500, L300.3900 ####[facility] [address] [place], [address] CO2 [Moles/Vol] 27.0 mmol/L Normal 21.0-32.0 [facility] Comment on above: Order Comment: 'TROP ' Serial specimen #1, #2 or #3: 1 Performed By: #### L 100.0100, L501.4020, L300.4310, L500.2500, L300.3900 ####[facility] [address] [place], [address] Creatinine [Mass/Vol] 1.37 mg/dL High 0.70-1.[address] [facility] Comment on above: Order Comment: 'TROP ' Serial specimen #1, #2 or #3: 1 Result Comment: The validity of the calculated GFR GFRAA in patients over70 years has not been determined. Clinical correlation isessential. Performed By: #### L 100.0100, L501.4020, L300.4310, L500.2500, L300.3900 ####[facility] [address] [place], [address] ECRCL 81.83 ml/min Normal [facility] Comment on above: Order Comment: 'TROP ' Serial specimen #1, #2 or #3: 1 Performed By: #### L 100.0100, L501.4020, L300.4310, L500.2500, L300.3900 ####[facility] [address] [place], [address] EST GFR - AA 68 mL/min Normal >60 [facility] Comment on above: Order Comment: 'TROP ' Serial specimen #1, #2 or #3: 1 Result Comment: Afri can [place] GFR Calc Performed By: #### L 100.0100, L501.4020, L300.4310, L500.2500, L300.3900 ####[facility] [address] [place], [address] GAP 6 Normal 5-15 [facility] Comment on above: Order Comment: 'TROP ' Serial specimen #1, #2 or #3: 1 Performed By: #### L 100.0100, L501.4020, L300.4310, L500.2500, L300.3900 ####[facility] [address] [place], [address] GFR/1.73 sq M.predicted among non-blacks MDRD (S/P/Bld) [Vol rate/Area] 56 mL/min/{1.73_m2} Low >60 [facility] Comment on above: Order Comment: 'TROP ' Serial specimen #1, #2 or #3: 1 Result Comment: Non- GFR Calc Performed By: #### L 100.0100, L501.4020, L300.4310, L500.2500, L300.3900 ####[facility] [address] [place], [address] Glucose [Mass/Vol] 116 mg/dL High 74-106 [facility] Comment on above: Order Comment: 'TROP ' Serial specimen #1, #2 or #3: 1 Result Comment: Fast ing Glucose result from 100 to 125 mg/dLsuggests IMPAIRED HOMEOSTASIS per A.D.A. criteria. Performed By: #### L 100.0100, L501.4020, L300.4310, L500.2500, L300.3900 ####[facility] [address] [place], [address] Potassium [Moles/Vol] 3.9 mmol/L Normal 3.5-5.[address] [facility] Comment on above: Order Comment: 'TROP ' Serial specimen #1, #2 or #3: 1 Performed By: #### L 100.0100, L501.4020, L300.4310, L500.2500, L300.3900 ####[facility] [address] [place], [address] Sodium [Moles/Vol] 140 mmol/L Normal 136-145 [facility] Comment on above: Order Comment: 'TROP ' Serial specimen #1, #2 or #3: 1 Performed By: #### L 100.0100, L501.4020, L300.4310, L500.2500, L300.3900 ####[facility] [address] [place], [address] Urea nitrogen [Mass/Vol] 25 mg/dL High 7-18 [facility] Comment on above: Order Comment: 'TROP ' Serial specimen #1, #2 or #3: 1 Performed By: #### L 100.0100, L501.4020, L300.4310, L500.2500, L300.3900 ####[facility] [address] [place], [address] CBC W/Diff, Automatedon 10-30 Absolute Lymph 2.30 X10 3/uL Normal 0.83-4.51 [facility] Comment on above: Performed By: #### L 100.0100, L501.4020, L300.4310, L500.2500, L300.3900 ####[facility] [address] [place], [address] Absolute Neut 7.5 X10 3/uL Normal 2.0-7.7 [facility] Comment on above: Performed By: #### L 100.0100, L501.4020, L300.4310, L500.2500, L300.3900 ####[facility] [address] [place], [address] Basophils/100 WBC (Bld) 0.7 % Normal 0-1 [facility] Comment on above: Performed By: #### L 100.0100, L501.4020, L300.4310, L500.2500, L300.3900 ####[facility] [address] [place], [address] Eosinophils/100 WBC (Bld) 2.8 % Normal 0-5 [facility] Comment on above: Performed By: #### L 100.0100, L501.4020, L300.4310, L500.2500, L300.3900 ####[facility] [address] [place], [address] Erythrocyte distribution width (RBC) [Ratio] 18.7 % High 11.6-14.6 [facility] Comment on above: Performed By: #### L 100.0100, L501.4020, L300.4310, L500.2500, L300.3900 ####[facility] [address] [place], [address] Hematocrit (Bld) [Volume fraction] 37.2 % Low 40-54 [facility] Comment on above: Performed By: #### L 100.0100, L501.4020, L300.4310, L500.2500, L300.3900 ####[facility] [address] [place], [address] Hemoglobin (Bld) [Mass/Vol] 11.3 g/dL Low 13.0-16.5 [facility] Comment on above: Performed By: #### L 100.0100, L501.4020, L300.4310, L500.2500, L300.3900 ####[facility] [address] [place], [address] IG% 1.100 High 0.0-0.9 [facility] Comment on above: Result Comment: IG% - Immature Granulocytes (promyelocytes, myelocytes andmetamyelocytes) > 1% indicates that a LEFT SHIFT is Present. Performed By: #### L 100.0100, L501.4020, L300.4310, L500.2500, L300.3900 ####[facility] [address] [place], [address] Lymphocytes/100 WBC (Bld) 19.9 % Normal 19-41 [facility] Comment on above: Performed By: #### L 100.0100, L501.4020, L300.4310, L500.2500, L300.3900 ####[facility] [address] [place], [address] MCH (RBC) [Entitic mass] 24.0 pg Low 27.0-32.0 [facility] Comment on above: Performed By: #### L 100.0100, L501.4020, L300.4310, L500.2500, L300.3900 ####[facility] [address] [place], [address] MCHC (RBC) [Mass/Vol] 30.4 g/dL Low 32-[address] [facility] Comment on above: Performed By: #### L 100.0100, L501.4020, L300.4310, L500.2500, L300.3900 ####[facility] [address] [place], [address] MCV (RBC) [Entitic vol] 79.0 fL Low 80-94 [facility] Comment on above: Performed By: #### L 100.0100, L501.4020, L300.4310, L500.2500, L300.3900 ####[facility] [address] [place], [address] Monocytes/100 WBC (Bld) 10.6 % High 0-10 [facility] Comment on above: Performed By: #### L 100.0100, L501.4020, L300.4310, L500.2500, L300.3900 ####[facility] [address] [place], [address] Neutrophils/100 WBC (Bld) 64.9 % Normal 47-70 [facility] Comment on above: Performed By: #### L 100.0100, L501.4020, L300.4310, L500.2500, L300.3900 ####[facility] [address] [place], [address] Nucleated RBC (Bld) [#/Vol] 0 10*3/uL Normal 0-5 [facility] Comment on above: Performed By: #### L 100.0100, L501.4020, L300.4310, L500.2500, L300.3900 ####[facility] [address] [place], [address] Platelet mean volume (Bld) [Entitic vol] 9.3 fL Normal 6.2-12.0 [facility] Comment on above: Performed By: #### L 100.0100, L501.4020, L300.4310, L500.2500, L300.3900 ####[facility] [address] [place], [address] Platelets (Bld) [#/Vol] 259 10*3/uL Normal 150-450 [facility] Comment on above: Performed By: #### L 100.0100, L501.4020, L300.4310, L500.2500, L300.3900 ####[facility] [address] [place], [address] RBC (Bld) [#/Vol] 4.71 10*6/uL Normal 4.6-6.2 [facility] Comment on above: Performed By: #### L 100.0100, L501.4020, L300.4310, L500.2500, L300.3900 ####[facility] [address] [place], [address] RDW SD 53.2 fl High 35.1-43.9 [facility] Comment on above: Performed By: #### L 100.0100, L501.4020, L300.4310, L500.2500, L300.3900 ####[facility] [address] [place], [address] WBC (Bld) [#/Vol] 11.6 10*3/uL High 4.4-11.0 [facility] Comment on above: Performed By: #### L 100.0100, L501.4020, L300.4310, L500.2500, L300.3900 ####[facility] [address] [place], [address] Chest 1 Viewon 11-16-2023 Chest 1 View Normal [facility] Emergency Department Summary on 11-16-2023 Emergency Department Summary Normal [facility] L501.4020on 11-16-2023 TROPONIN-I HS 16 pg/mL Normal 3.0-78.0 [facility] Comment on above: Order Comment: 'TROP ' Serial specimen #1, #2 or #3: 1 Result Comment: Plea se Note: New Test Units and Gender Specific Reference Ranges. For more information see Policy Stat Procedure [place] High Sensitivity Troponin (TNIH) and attachments. Performed By: #### L 100.0100, L501.4020, L300.4310, L500.2500, L300.3900 ####[facility] [address] [place], [address] Partial Thromboplast Timeon 11-16-2023 aPTT Coag (Bld) [Time] 28.5 s Normal 24.1-36.2 [facility] Comment on above: Performed By: #### L 100.0100, L501.4020, L300.4310, L500.2500, L300.3900 ####[facility] [address] [place], [address] Prothrombin Time w/INRon INR Coag (PPP) [Relative time] 1.2 {INR} Normal [facility] Comment on above: Performed By: #### L 100.0100, L501.4020, L300.4310, L500.2500, L300.3900 ####[facility] [address] [place], [address] PT Coag (PPP) [Time] 15.6 s High 11.7-14.9 [facility] Comment on above: Performed By: #### L 100.0100, L501.4020, L300.4310, L500.2500, L300.3900 ####[facility] [address] [place], [address] STROKE Brain/Head without Co nton 11-16-2023 STROKE Brain/Head without Cont Normal [facility] STROKE CTA Head AND Neck W/C onon 11-16-2023 STROKE CTA Head AND Neck W/Con Normal [facility] Alcohol, Blood (Medical)-Ser umon 11-14-2023 SERUM ETOH < 3.0 Normal [facility] Comment on above: Result Comment: The serum:whole blood ethanol ratio is approximately 1.14and varies slightly with hematocrit.Medical Alcohol reference interval and critical value innon-tolerant individuals; 50 - 100 Impairment 100 Intoxication 100 - 250 Severe Poisoning 250 - 400 Deep/possible fatal coma Performed By: #### L 501.9520, L501.9985, L506.0250, L501.9100 ####[facility] [address] [place], [address] Bedside Glucoseon 11-14-2023 FINGERSTICK GLU 126 mg/dL High 74-106 [facility] Comment on above: Result Comment: ANI GEMENT OF PATIENT CARE PER NURSING PROTOCOL Performed By: #### L 501.080 ####[facility] [address] [place], [address] FINGERSTICK GLU 91 mg/dL Normal 74-106 [facility] Comment on above: Result Comment: ANI GEMENT OF PATIENT CARE PER NURSING PROTOCOL Performed By: #### L 501.080 ####[facility] [address] [place], [address] FINGERSTICK GLU 143 mg/dL High 74-106 [facility] Comment on above: Result Comment: ANI BRADFORD OF PATIENT CARE PER NURSING PROTOCOL Performed By: #### L 501.080 ####[facility] [address] [place], [place], [address] Brain without Contraston Brain without Contrast Normal [facility] Carotid Duplex Ultrasoundon 11-14-2023 Carotid Duplex Ultrasound Normal [facility] Consultation - Surgicalon Consultation - Surgical Normal [facility] Discharge Instructionon 10-30 Discharge Instruction Normal [facility] Folates, (Folic Acid)on 10-30 FOLATES 5.80 ng/mL Normal 3.1-55.4 [facility] Comment on above: Order Comment: Has P atient had X-rays with Contrast this admission? NN Performed By: #### L 501.9520, L501.9985, L506.0250, L501.9100 ####[facility] [address] [place], [address] Hemoglobin A1con 11-14-2023 HbA1c (Bld) [Mass fraction] 7.8 % High 3.8-5.6 [facility] Comment on above: Result Comment: Norm al < 5.7 % Prediabetic 5.7 - 6.4 % Diabetic >or= 6.5 % Please note range changes. Performed By: #### L 501.9520, L501.9985, L506.0250, L501.9100 ####[facility] [address] [place], [address] Lipid Profileon 11-14-2023 Cholesterol [Mass/Vol] 125 mg/dL Normal 200 [facility] Comment on above: Order Comment: Comme nts: NPO at [place] prior to lipid panel Result Comment: <200 mg/dL Desirable 200-240 mg/dL Borderline >240 mg/dL High Risk Performed By: #### L 500.5250 ####[facility] [address] [place], [address] Cholesterol in HDL [Mass/Vol] 41 mg/dL Normal [facility] Comment on above: Order Comment: Comme nts: NPO at [place] prior to lipid panel Result Comment: The drugs N-Acetylcysteine and Metamizole may falselydepress this assay. Reference Range HDL <40 mg/dL Low HDL Cholesterol HDL >or= 60 mg/dL High HDL Cholesterol Performed By: #### L 500.4100 ####[facility] [address] [place], [address] Cholesterol in LDL [Mass/Vol] 56 mg/dL Normal 0-130 [facility] Comment on above: Order Comment: Comme nts: NPO at [place] prior to lipid panel Performed By: #### L 500.4100 ####[facility] [address] [place], [address] Cholesterol in VLDL [Mass/Vol] 28 mg/dL Normal 5-40 [facility] Comment on above: Order Comment: Comme nts: NPO at [place] prior to lipid panel Performed By: #### L 500.4100 ####[facility] [address] [place], [address] Triglyceride [Mass/Vol] 140 mg/dL Normal [facility] Comment on above: Order Comment: Comme nts: NPO at [place] prior to lipid panel Result Comment: The drugs N-Acetylcysteine and Metamizole may falselydepress this assay.Serum Triglycerides Reference Interval Normal <150 mg/dL Borderline high 150 - 199 mg/dL High 200 - 499 mg/dL Very High > or = 500 mg/dL Performed By: #### L 500.4100 ####[facility] [address] [place], [address] MR/CON.PCM.NEon 11-14-2023 MR/CON.PCM.NE Normal [facility] Thyroid Stim Hormone (TSH)on 11-14-2023 TSH 3.910 uIU/mL High 0.358-3.74 0 [facility] Comment on above: Order Comment: Has P dany had X-rays with Contrast this admission? NN Performed By: #### L 501.9520, L501.9985, L506.0250, L501.9100 ####[facility] [address] [place], [address] Vitamin B12on 11-14-2023 Cobalamin (Vitamin B12) [Mass/Vol] 340 pg/mL Normal 211-911 [facility] Comment on above: Performed By: #### L 503.0105 ####[facility] [address] [place], [address] Basic Metabolic Profile (BMP )on 11-13-2023 BUN/CRE 21.8 RATIO High 10-20 [facility] Comment on above: Order Comment: 'TROP ' Serial specimen #1, #2 or #3: 1 Performed By: #### L 500.2500, L300.3900, L100.0100, L501.4020 ####[facility] [address] [place], [address] CA,Total 8.6 mg/dL Normal 8.5-10.1 [facility] Comment on above: Order Comment: 'TROP ' Serial specimen #1, #2 or #3: 1 Performed By: #### L 500.2500, L300.3900, L100.0100, L501.4020 ####[facility] [address] [place], [address] Chloride [Moles/Vol] 103 mmol/L Normal 98-107 [facility] Comment on above: Order Comment: 'TROP ' Serial specimen #1, #2 or #3: 1 Performed By: #### L 500.2500, L300.3900, L100.0100, L501.4020 ####[facility] [address] [place], [address] CO2 [Moles/Vol] 22.0 mmol/L Normal 21.0-32.0 [facility] Comment on above: Order Comment: 'TROP ' Serial specimen #1, #2 or #3: 1 Performed By: #### L 500.2500, L300.3900, L100.0100, L501.4020 ####[facility] [address] [place], [address] Creatinine [Mass/Vol] 1.56 mg/dL High 0.70-1.[address] [facility] Comment on above: Order Comment: 'TROP ' Serial specimen #1, #2 or #3: 1 Result Comment: The validity of the calculated GFR GFRAA in patients over70 years has not been determined. Clinical correlation isessential. Performed By: #### L 500.2500, L300.3900, L100.0100, L501.4020 ####[facility] [address] [place], [address] ECRCL 72.64 ml/min Normal [facility] Comment on above: Order Comment: 'TROP ' Serial specimen #1, #2 or #3: 1 Performed By: #### L 500.2500, L300.3900, L100.0100, L501.4020 ####[facility] [address] [place], [address] EST GFR - AA 59 mL/min Low >60 [facility] Comment on above: Order Comment: 'TROP ' Serial specimen #1, #2 or #3: 1 Result Comment: Afri can [place] GFR Calc Performed By: #### L 500.2500, L300.3900, L100.0100, L501.4020 ####[facility] [address] [place], [address] GAP 8 Normal 5-15 [facility] Comment on above: Order Comment: 'TROP ' Serial specimen #1, #2 or #3: 1 Performed By: #### L 500.2500, L300.3900, L100.0100, L501.4020 ####[facility] [address] [place], [address] GFR/1.73 sq M.predicted among non-blacks MDRD (S/P/Bld) [Vol rate/Area] 49 mL/min/{1.73_m2} Low >60 [facility] Comment on above: Order Comment: 'TROP ' Serial specimen #1, #2 or #3: 1 Result Comment: Non- GFR Calc Performed By: #### L 500.2500, L300.3900, L100.0100, L501.4020 ####[facility] [address] [place], [address] Glucose [Mass/Vol] 258 mg/dL High 74-106 [facility] Comment on above: Order Comment: 'TROP ' Serial specimen #1, #2 or #3: 1 Result Comment: Gluc ose result greater than or equal to 200 mg/dLsuggests DIABETES MELLITUS per A.D.A. criteria. Performed By: #### L 500.2500, L300.3900, L100.0100, L501.4020 ####[facility] [address] [place], [address] Potassium [Moles/Vol] 4.9 mmol/L Normal 3.5-5.[address] [facility] Comment on above: Order Comment: 'TROP ' Serial specimen #1, #2 or #3: 1 Performed By: #### L 500.2500, L300.3900, L100.0100, L501.4020 ####[facility] [address] [place], [address] Sodium [Moles/Vol] 133 mmol/L Low 136-145 [facility] Comment on above: Order Comment: 'TROP ' Serial specimen #1, #2 or #3: 1 Performed By: #### L 500.2500, L300.3900, L100.0100, L501.4020 ####[facility] [address] [place], [address] Urea nitrogen [Mass/Vol] 34 mg/dL High 7-18 [facility] Comment on above: Order Comment: 'TROP ' Serial specimen #1, #2 or #3: 1 Performed By: #### L 500.2500, L300.3900, L100.0100, L501.4020 ####[facility] [address] [place], [address] Bedside Glucoseon 11-13-2023 FINGERSTICK GLU 256 mg/dL High 74-106 [facility] Comment on above: Result Comment: ANI BRADFORD OF PATIENT CARE PER NURSING PROTOCOL Performed By: #### L 501.080 ####[facility] [address] [place], [address] CBC W/Diff, Automatedon 10-30 SMEAR COMMENT SCANNED Normal [facility] Comment on above: Performed By: #### L 500.2500, L300.3900, L100.0100, L501.4020 ####[facility] [address] [place], [address] CTA Head AND Neck W/ Contras ton 11-13-2023 CTA Head AND Neck W/ Contrast Normal [facility] Chest PA and Lateralon 11-12 Chest PA and Lateral Normal [facility] Emergency Department Summary on 11-13-2023 Emergency Department Summary Normal [facility] H AND P Exam - Hospitaliston 11-13-2023 H&P Exam - Hospitalist Normal [facility] L501.4020on 11-13-2023 TROPONIN-I HS 13 pg/mL Normal 3.0-78.0 [facility] Comment on above: Order Comment: 'TROP ' Serial specimen #1, #2 or #3: 1 Result Comment: Kodi monterroso Note: New Test Units and Gender Specific Reference Ranges. For more information see Policy Stat Procedure [place] High Sensitivity Troponin (TNIH) and attachments. Performed By: #### L 500.2500, L300.3900, L100.0100, L501.4020 ####[facility] [address] [place], [address] Partial Thromboplast Timeon 11-13-2023 aPTT Coag (Bld) [Time] 27.8 s Normal 24.1-36.2 [facility] Comment on above: Order Comment: REDRA W. PREVIOUS SPECIMEN REJECTED DUE TOCLOTTED SPECIMEN. 11/13/232051. Performed By: #### L 300.4310, L300.3900 ####[facility] [address] [place], [address] Prothrombin Time w/INRon INR Coag (PPP) [Relative time] 1.2 {INR} Normal [facility] Comment on above: Order Comment: REDRA W. PREVIOUS SPECIMEN REJECTED DUE TOCLOTTED SPECIMEN. 11/13/232051. Performed By: #### L 300.4310, L300.3900 ####[facility] [address] [place], [address] PT Coag (PPP) [Time] 14.8 s Normal 11.7-14.9 [facility] Comment on above: Order Comment: REDRA W. PREVIOUS SPECIMEN REJECTED DUE TOCLOTTED SPECIMEN. 11/13/232051. Performed By: #### L 300.4310, L300.3900 ####[facility] [address] [place], [address] INR Normal [facility] Comment on above: Result Comment: This specimen has been REJECTED due to Laboratory criteria:Clotted.ED-EITAN has been notified of need of recollection.11/13/232050 Kandice Escobedo Performed By: #### L 500.2500, L300.3900, L100.0100, L501.4020 ####[facility] [address] [place], [address] PROTIME Normal 11.7-14.9 [facility] Comment on above: Result Comment: This specimen has been REJECTED due to Laboratory criteria:Clotted.ED-EITAN has been notified of need of recollection.11/13/232050 Kandice Escobedo Performed By: #### L 500.2500, L300.3900, L100.0100, L501.4020 ####[facility] [address] [place], [address] Bedside Glucoseon 11-04-2023 FINGERSTICK GLU 170 mg/dL High 74-106 [facility] Comment on above: Result Comment: ANI BRADFORD OF PATIENT CARE PER NURSING PROTOCOL Performed By: #### L 501.080 ####[facility] [address] [place], [address] Fluor Guidance for Spine Inj on 11-04-2023 Fluor Guidance for Spine Inj Normal [facility] MR/POSTOP.ANEon 11-04-2023 MR/POSTOP.ANE Normal [facility] MR/OPIHPAWZ5wh 11-04-2023 MR/POSTOPAN2 Normal [facility] Operative Reporton Operative Report Normal [facility] 6 Minute Walk Teston 024 6 Minute Walk Test Normal [facility] 36on 10-17-2023 36 Per La, patient h as been placed in recall Normal [facility] Cardiology Visit Reporton Cardiology Visit Report Normal [facility] AWAIS + Protein Elect, Serumon 10-16-2023 Albumin [Mass/Vol] 3.6 g/dL Normal 2.9-4.4 [facility] Comment on above: Order Comment: N Performed By: #### L 3600.4030, L3463.0965 ####[facility] [address] [place], [address] Albumin/Globulin [Mass ratio] 0.9 {ratio} Normal 0.7-1.7 [facility] Comment on above: Order Comment: N Performed By: #### L 3600.4030, L3100.3425 ####[facility] [address] [place], [address] RVGWP-5-BLCH 0.3 g/dL Normal 0.0-0.4 [facility] Comment on above: Order Comment: N Performed By: #### L 3600.4030, L3100.3425 ####[facility] [address] [place], [address] GKPQM-1-LPGY 1.0 g/dL Normal 0.4-1.0 [facility] Comment on above: Order Comment: N Performed By: #### L 3600.4030, L3100.3425 ####[facility] [address] [place], [address] BETA GLOBULIN 1.2 g/dL Normal 0.7-1.3 [facility] Comment on above: Order Comment: N Performed By: #### L 3600.4030, L3100.3425 ####[facility] [address] [place], [address] GAMMA GLOBULIN 2.0 g/dL High 0.4-1.8 [facility] Comment on above: Order Comment: N Performed By: #### L 3600.4030, L3100.3425 ####[facility] [address] [place], [address] Globulin (S) [Mass/Vol] 4.5 g/dL Abnormal 2.2-3.9 [facility] Comment on above: Order Comment: N Performed By: #### L 3600.4030, L3100.3425 ####[facility] [address] [place], [address] AWAIS RESULT,S Comment Normal . [facility] Comment on above: Order Comment: N Result Comment: No m onoclonality detected. Performed By: #### L 3600.4030, L3100.3425 ####[facility] [address] [place], [address] IMMUNOGLOB A QN 304 mg/dL Normal 90-386 [facility] Comment on above: Order Comment: N Performed By: #### L 3600.4030, L3100.3425 ####[facility] [address] [place], [address] IMMUNOGLOB G QN 1968 mg/dL High 603-1613 [facility] Comment on above: Order Comment: N Performed By: #### L 3600.4030, L3100.3425 ####[facility] [address] [place], [address] IMMUNOGLOB M QN 209 mg/dL High 20-172 [facility] Comment on above: Order Comment: N Performed By: #### L 3600.4030, L3100.3425 ####[facility] [address] [place], [address] M-Aaron Not Observed Normal Not Observed [facility] Comment on above: Order Comment: N Performed By: #### L 3600.4030, L3100.3425 ####[facility] [address] [place], [address] NOTE: Comment Normal . [facility] Comment on above: Order Comment: N Result Comment: Prot ein electrophoresis scan will follow via computer,mail, or improvement rn delivery. Performed By: #### L 3600.4030, L3100.3425 ####[facility] [address] [place], [address] Protein [Mass/Vol] 8.1 g/dL Normal 6.0-8.5 [facility] Comment on above: Order Comment: N Performed By: #### L 3600.4030, L3100.3425 ####[facility] [address] [place], [address] Immunofixation Urineon 10-15 AWAIS Urine Comment Normal . [facility] Comment on above: Order Comment: N Result Comment: No m onoclonality detected.Performed at: [address] [id number] Director: Chance Morales PhD, Phone: [phone] Performed By: #### L 3600.4030, L3669.3428 ####[facility] [address] [place], [place], [address] 36on 10-15-2023 36 La -- per Dr. Arnel sierra's 10/04/23 consult note, patient is to have a repeat of his carotid US in 6 months for close surveillance; can you please place patient in recall as well as an order for a CU for April 2024? Normal [facility] Neurology Visit Reporton Neurology Visit Report Normal [facility] MR/BMS.BVSon 10-08-2023 MR/BMS.BVS Normal [facility] [place] Lambda Light Chainson 10-06-2023 FR KAPPA LT CHN 79.0 mg/L Abnormal 3.3-19.4 [facility] Comment on above: Order Comment: Test( s) 582017-Osl. B1, Whole Bloodwas developed and its performance characteristicsdetermined by [employer]. It has not been cleared or approvedby the Food and Drug Administration. Performed By: #### L 506.0250, L3300.8000, L500.4100, L501.4700, L503.0105, L3130.0010 ####[facility] [address] [place], [address] FR LAMBDA LT CH 46.8 mg/L Abnormal 5.7-26.3 [facility] Comment on above: Order Comment: Test( s) 722304-Kxu. B1, Whole Bloodwas developed and its performance characteristicsdetermined by [employer]. It has not been cleared or approvedby the Food and Drug Administration. Performed By: #### L 506.0250, L3300.8000, L500.4100, L501.4700, L503.0105, L3130.0010 ####[facility] [address] [place], [place], [address] KAPPA/LAMBDA % 1.69 Abnormal 0.26-1.65 [facility] Comment on above: Order Comment: Test( s) 186214-Nlw. B1, Whole Bloodwas developed and its performance characteristicsdetermined by [employer]. It has not been cleared or approvedby the Food and Drug Administration. Performed By: #### L 506.0250, L3300.8000, L500.4100, L501.4700, L503.0105, L3130.0010 ####[facility] [address] [facility] [place], [address] Vitamin B1, Thiamineon 10-05 VIT B1 THIAMINE 128.1 nmol/L Normal 66.5-200.0 [facility] Comment on above: Order Comment: Test( s) 049313-Wfl. B1, Whole Bloodwas developed and its performance characteristicsdetermined by [employer]. It has not been cleared or approvedby the Food and Drug Administration. Result Comment: Perf ormed at: [facility] [address] [id number] Director: Chance Morales PhD, Phone: [phone] at: [address] [id number] Director: Rhina Norris MD, Phone: [phone] Performed By: #### L 506.0250, L3300.8000, L500.4100, L501.4700, L503.0105, L3130.0010 ####[facility] [address] [place], [address] CBC (HEMOGRAM)on 10-05-2023 Erythrocyte distribution width (RBC) [Ratio] 17.7 % High 11.5-15.0 [facility] Comment on above: Performed By: #### L AB294 ####Rn Integrated: RADHA SIMMONS ([id number])[address] Hematocrit (Bld) [Volume fraction] 36.7 % Low 40.0-52.0 [facility] Comment on above: Performed By: #### L AB294 ####Rn Integrated: RADHA SIMMONS ([id number])[facility])[address] [place] [address] Hemoglobin (Bld) [Mass/Vol] 11.3 g/dL Low 13.0-18.0 [facility] Comment on above: Performed By: #### L AB294 ####Rn Integrated: RADHA SIMMONS ([id number])[facility])[address] [place] [address] MCH (RBC) [Entitic mass] 23.3 pg Low 26.0-34.0 [facility] Comment on above: Performed By: #### L AB294 ####Rn Integrated: RADHA SIMMONS ([id number])[facility])[address] [place] [address] MCHC 30.8 % Normal 30.5-36.0 [facility] Comment on above: Performed By: #### L AB294 ####Rn Integrated: RADHA SIMMONS ([id number])[facility])[address] [place] [address] MCV (RBC) [Entitic vol] 75.7 fL Low 77.0-99.0 [facility] Comment on above: Performed By: #### L AB294 ####Rn Integrated: RADHA SIMMONS ([id number])[facility])[address] [place] [address] Platelet mean volume (Bld) [Entitic vol] 10.1 fL Normal 9.0-12.7 [facility] Comment on above: Performed By: #### L AB294 ####Rn Integrated: RADHA SIMMONS ([id number])[facility])[address] [place] [address] Platelets (Bld) [#/Vol] 221 10*3/uL Normal 140-440 [facility] Comment on above: Performed By: #### L AB294 ####Rn Integrated: RADHA SIMMONS ([id number])[facility])[address] [place] [address] [place] RBC (Bld) [#/Vol] 4.85 10*6/uL Normal 4.40-5.90 [facility] Comment on above: Performed By: #### L AB294 ####Rn Integrated: RADHA SIMMONS ([id number])[facility])[address] [place] [address] WBC (Bld) [#/Vol] 9.9 10*3/uL Normal 3.6-10.7 [facility] Comment on above: Performed By: #### L AB294 ####Rn Integrated: RADHA SIMMONS ([id number])[facility])[address] [place] [address] CBC panel Auto (Bld)Ordered By: Russel Sanchez on 10-05-2023 Erythrocyte distribution width (RBC) [Ratio] 17.7 % High 11.5 - 15.0 % [facility] Hematocrit (Bld) [Volume fraction] 36.7 % Low 40.0 - 52.0 % [facility] Hemoglobin (Bld) [Mass/Vol] 11.3 g/dL Low 13.0 - 18.0 g/dL [facility] Interpretation and review of laboratory results Abnormal [facility] MCH (RBC) [Entitic mass] 23.3 pg Low 26.0 - 34.0 pg [facility] MCHC (RBC) [Mass/Vol] 30.8 % 30.5 - 36.0 % [facility] MCV (RBC) [Entitic vol] 75.7 fL Low 77.0 - 99.0 fL [facility] Platelet mean volume (Bld) [Entitic vol] 10.1 fL 9.0 - 12.7 fL [facility] Platelets (Bld) [#/Vol] 221 10*3/uL 140 - 440 10*3/uL [facility] RBC (Bld) [#/Vol] 4.85 10*6/uL 4.40 - 5.90 10*6/uL [facility] WBC (Bld) [#/Vol] 9.9 10*3/uL 3.6 - 10.7 10*3/uL [facility] COMPREHENSIVE METABOLIC PANE Julio César 10-05-2023 Albumin [Mass/Vol] 4.1 g/dL Normal 3.5-5.0 [facility] Comment on above: Performed By: #### L AB17 ####Rn Integrated: RADHA SIMMONS ([id number])[facility])[address] [place] [address] ALP [Catalytic activity/Vol] 101 U/L Normal 38-126 [facility] Comment on above: Performed By: #### L AB17 ####Rn Integrated: RADHA SIMMONS ([id number])[facility])[address] [place] [address] ALT [Catalytic activity/Vol] 21 U/L Normal 0-49 [facility] Comment on above: Performed By: #### L AB17 ####Rn Integrated: RADHA SIMMONS ([id number])[facility])[address] [place] [address] Anion gap [Moles/Vol] 12 mmol/L Normal 3-13 [facility] Comment on above: Performed By: #### L AB17 ####Rn Integrated: RADHA SIMMONS ([id number])[facility])[address] [place] [address] AST [Catalytic activity/Vol] 29 U/L Normal 15-46 [facility] Comment on above: Performed By: #### L AB17 ####Rn Integrated: RADHA SIMMONS ([id number])[facility])[address] [place] [address] Bilirubin [Mass/Vol] 1.2 mg/dL Normal 0.2-1.3 [facility] Comment on above: Performed By: #### L AB17 ####Rn Integrated: RADHA SIMMONS ([id number])[facility])[address] [place] [address] Calcium [Mass/Vol] 9.0 mg/dL Normal 8.4-10.4 [facility] Comment on above: Performed By: #### L AB17 ####Rn Integrated: RADHA SIMMONS ([id number])[facility])[address] [place] [address] Chloride [Moles/Vol] 102 mmol/L Normal 98-107 [facility] Comment on above: Performed By: #### L AB17 ####Rn Integrated: RADHA SIMMONS ([id number])[facility])[address] [place] [address] CO2 [Moles/Vol] 20 mmol/L Low 22-30 [facility] Comment on above: Performed By: #### L AB17 ####Rn Integrated: RADHA SIMMONS ([id number])[facility])[address] [place] [address] Creatinine [Mass/Vol] 0.89 mg/dL Normal 0.66-1.25 [facility] Comment on above: Performed By: #### L AB17 ####Rn Integrated: RADHA SIMMONS ([id number])[facility])[address] [place] [address] GLOMERULAR FILTRATION RATE ML/MIN/1.73 SQ M.PREDICTED >90.0 Normal >60.0 [facility] Comment on above: Result Comment: Calc ulation based on the Chronic Kidney Disease Epidemiology Collaboration (CKD-EPI) equation refit without adjustment for race Performed By: #### L AB17 ####Rn Integrated: RADHA SIMMONS ([id number])[facility])[address] [place] [address] [place] Glucose [Mass/Vol] 217 mg/dL High 70-100 [facility] Comment on above: Performed By: #### L AB17 ####Rn Integrated: RADHA SIMMONS ([id number])[facility])[address] [place] [address] [place] Potassium [Moles/Vol] 4.3 mmol/L Normal 3.5-5.1 [facility] Comment on above: Performed By: #### L AB17 ####Rn Integrated: RADHA SIMMONS ([id number])[facility])[address] [place] [address] Protein [Mass/Vol] 8.0 g/dL Normal 6.3-8.2 [facility] Comment on above: Performed By: #### L AB17 ####Rn Integrated: RADHA SIMMONS ([id number])[address] Sodium [Moles/Vol] 134 mmol/L Low 135-145 [facility] Comment on above: Performed By: #### L AB17 ####Rn Integrated: RADHA SIMMONS ([id number])[facility])[address] [place] [address] Urea nitrogen [Mass/Vol] 20 mg/dL Normal 9-20 [facility] Comment on above: Performed By: #### L AB17 ####Rn Integrated: RADHA SIMMONS ([id number])[address] Comprehensive metabolic 1998 panelon 10-05-2023 Albumin [Mass/Vol] 4.1 g/dL 3.5 - 5.0 g/dL [facility] ALP [Catalytic activity/Vol] 101 U/L 38 - 126 U/L [facility] ALT [Catalytic activity/Vol] 21 U/L 0 - 49 U/L [facility] Anion gap [Moles/Vol] 12 mmol/L 3 - 13 mmol/L [facility] AST [Catalytic activity/Vol] 29 U/L 15 - 46 U/L [facility] Bilirubin [Mass/Vol] 1.2 mg/dL 0.2 - 1 .3 mg/dL [facility] Calcium [Mass/Vol] 9.0 mg/dL 8.4 - 10. 4 mg/dL [facility] Chloride [Moles/Vol] 102 mmol/L 98 - 10 7 mmol/L [facility] CO2 [Moles/Vol] 20 mmol/L Low 22 - 30 mmol/L [facility] Creatinine [Mass/Vol] 0.89 mg/dL 0.66 - 1.25 mg/dL [facility] GFR/1.73 sq M.predicted MDRD (S/P/Bld) [Vol rate/Area] - PINF [facility] Comment on above: Calculation based on the Chronic Kidney Disease Epidemiology Collaboration (CKD-EPI) equation refit without adjustment for race Glucose [Mass/Vol] 217 mg/dL High 70 - 100 mg/dL [facility] Interpretation and review of laboratory results Abnormal [facility] Potassium [Moles/Vol] 4.3 mmol/L 3.5 - 5.1 mmol/L [facility] Protein [Mass/Vol] 8.0 g/dL 6.3 - 8.2 g/dL [facility] Sodium [Moles/Vol] 134 mmol/L Low 135 - 145 mmol/L [facility] Urea nitrogen [Mass/Vol] 20 mg/dL 9 - 20 mg/dL [facility] ECG 12-LEADon 10-05-2023 ECG 12-LEAD IMPRESSION: Sinus rhythm Left ventricular hypertrophy Anterior Q waves, possibly due to LVH Electronically Signed On 10-05-2023 14:51:39 EDT by Lisa Fernandez [facility] IDNon 10-05-2023 IDN The patient is Moder ately Stable - Low risk of patient condition declining or worsening The patient's goals for the shift include The clinical goals for the shift include Over the shift, the patient did not make progress toward the following goals. Barriers to progression include . Recommendations to address these barriers include . Patient discharged. [facility] IDN The patient is Moder ately [...] address these barriers include reorient frequently. Normal [facility] Laboratory - Chemistry and C hemistry - challengeon 10-05-2023 Glucose [Mass/Vol] 215 mg/dL High 70 - 100 mg/dL [facility] Comment on above: Caregiver Notified; Glucose [Mass/Vol] 226 mg/dL High 70 - 100 mg/dL [facility] Comment on above: Caregiver Notified; No Panel InformationOrdered By: Lisa Fernandez on 10-05-2023 Heart Rate 77 bpm [facility] Work Phone: P [place] 12 degrees [facility] Work Phone: MI Interval 160 ms [facility] Work Phone: QRS [place] -16 degrees [facility] Work Phone: QRSD Interval [facility] ms [facility] Work Phone: [phone] QT Interval 401 ms [facility] Work Phone: [phone] QTC Interval 453 ms [facility] Work Phone: [phone] T Wave [place] 16 degrees [facility] Work Phone: [phone] [facility] Work Phone: [phone] No Panel Informationon 10-04 Sinus rhythm Left ventricular hypertrophy Anterior Q waves, possibly due to LVH Electronically Signed On 10-05-2023 14:51:39 EDT by Lisa Fernandez CV Lisa Patton MD - 10/05/2023 IMPRESSION: Sinus rhythm Left ventricular hypertrophy Anterior Q waves, possibly due to LVH Electronically Signed On 10-05-2023 14:51:39 EDT by Lisa Fernandez [facility] Interpretation and review of laboratory results Abnormal [facility] Performed by: [facility], [address] [place] [address] CLIA ID: [id number] [facility] Interpretation and review of laboratory results Abnormal [facility] Performed by: [facility], [address] [place] [address] CLIA ID: [id number] [facility] Nursing Noteon 10-05-2023 Nursing Note Patient discharged a t this time. Patient alert and oriented, reviewed discharge instructions with patient and daughter. PIV removed, tele removed. Normal [facility] Progress Noteon 10-05-2023 Progress Note Nutrition rescreen completed. Chart reviewed. Patient to be monitored and followed by the diet archives technician. Dietitian available upon request. Normal [facility] BASIC METABOLIC PANELon 07-0 Anion gap [Moles/Vol] 11 mmol/L Normal 3-13 [facility] Comment on above: Performed By: #### L AB15 ####Rn Integrated: RADHA SIMMONS ([id number])[facility] ([facility])[address] [place] [address] Calcium [Mass/Vol] 9.3 mg/dL Normal 8.4-10.4 [facility] Comment on above: Performed By: #### L AB15 ####Rn Integrated: RADHA SIMMONS ([id number])[facility])[address] [place] [address] Chloride [Moles/Vol] 105 mmol/L Normal 98-107 [facility] Comment on above: Performed By: #### L AB15 ####Rn Integrated: RADHA SIMMONS ([id number])[facility])[address] [place] [address] CO2 [Moles/Vol] 19 mmol/L Low 22-30 [facility] Comment on above: Performed By: #### L AB15 ####Rn Integrated: RADHA SIMMONS ([id number])[facility])[address] [place] [address] Creatinine [Mass/Vol] 0.77 mg/dL Normal 0.66-1.25 [facility] Comment on above: Performed By: #### L AB15 ####Rn Integrated: RADHA SIMMONS ([id number])[facility])[address] [place] [address] GLOMERULAR FILTRATION RATE ML/MIN/1.73 SQ M.PREDICTED >90.0 Normal >60.0 [facility] Comment on above: Result Comment: Calc ulation based on the Chronic Kidney Disease Epidemiology Collaboration (CKD-EPI) equation refit without adjustment for race Performed By: #### L AB15 ####Rn Integrated: RADHA SIMMONS ([id number])[facility])[address] [place] [address] Glucose [Mass/Vol] 177 mg/dL High 70-100 [facility] Comment on above: Performed By: #### L AB15 ####Rn Integrated: RADHA SIMMONS ([id number])[facility])[address] [place] [address] Potassium [Moles/Vol] 4.4 mmol/L Normal 3.5-5.1 [facility] Comment on above: Performed By: #### L AB15 ####Rn Integrated: RADHA [id number])[facility] ([facility])[address] [place] [address] Sodium [Moles/Vol] 134 mmol/L Low 135-145 [facility] Comment on above: Performed By: #### L AB15 ####Rn Integrated: RADHA SIMMONS ([id number])[facility])[address] [place] [address] Urea nitrogen [Mass/Vol] 17 mg/dL Normal 9-20 [facility] Comment on above: Performed By: #### L AB15 ####Rn Integrated: RADHA SIMMONS ([id number])[facility])[address] [place] [address] Basic metabolic 1998 panelon 10-04-2023 Anion gap [Moles/Vol] 11 mmol/L 3 - 13 mmol/L [facility] Calcium [Mass/Vol] 9.3 mg/dL 8.4 - 10. 4 mg/dL [facility] Chloride [Moles/Vol] 105 mmol/L 98 - 10 7 mmol/L [facility] CO2 [Moles/Vol] 19 mmol/L Low 22 - 30 mmol/L [facility] Creatinine [Mass/Vol] 0.77 mg/dL 0.66 - 1.25 mg/dL [facility] GFR/1.73 sq M.predicted MDRD (S/P/Bld) [Vol rate/Area] - PINF [facility] Comment on above: Calculation based on the Chronic Kidney Disease Epidemiology Collaboration (CKD-EPI) equation refit without adjustment for race Glucose [Mass/Vol] 177 mg/dL High 70 - 100 mg/dL [facility] Interpretation and review of laboratory results Abnormal [facility] Potassium [Moles/Vol] 4.4 mmol/L 3.5 - 5.1 mmol/L [facility] Sodium [Moles/Vol] 134 mmol/L Low 135 - 145 mmol/L [facility] Urea nitrogen [Mass/Vol] 17 mg/dL 9 - 20 mg/dL [facility] CARECOORDon 10-04-2023 [facility] Care Managment Initi al Assessment Date: 10/04/2023 Patient Name: Krunal Leos : 1965 Patient Information Source of Information: Patient Cognition/Language: WFL - Within Functional Limits Permission given to speak with patient patient intake representative/caregiver as indicated: Confirmation of Payer with patient/family: Yes Payer Name: [facility] [place] : No Confirmation of Primary Care Physician: [...] 0 x 3. He was transferred from [facility] with CVA/TIA. Vascular and Neurology have been consulted. Needs carotid US. Anticipate home with no needs when stable.. . Gris Keith RN Normal [facility] CBC (HEMOGRAM)on 10-04-2023 Erythrocyte distribution width (RBC) [Ratio] 17.9 % High 11.5-15.0 [facility] Comment on above: Performed By: #### L AB294 #### Rn Integrated: RADHA SIMMONS ([id number]) [facility] [id number] [place] Hematocrit (Bld) [Volume fraction] 39.6 % Low 40.0-52.0 [facility] Comment on above: Performed By: #### L AB294 #### Rn Integrated: RADHA SIMMONS ([id number]) [facility]) [address] [place] [address] Hemoglobin (Bld) [Mass/Vol] 11.3 g/dL Low 13.0-18.0 [facility] Comment on above: Performed By: #### L AB294 #### Rn Integrated: RADHA SIMMONS ([id number]) [facility]) [address] [place] [address] MCH (RBC) [Entitic mass] 23.7 pg Low 26.0-34.0 [facility] Comment on above: Performed By: #### L AB294 #### Rn Integrated: RADHA SIMMONS ([id number]) [facility]) [address] [place] [address] MCHC 28.5 % Low 30.5-36.0 [facility] Comment on above: Performed By: #### L AB294 #### Rn Integrated: RADHA SIMMONS ([id number]) [facility]) [address] [place] [address] MCV (RBC) [Entitic vol] 83.2 fL Normal 77.0-99.0 [facility] Comment on above: Performed By: #### L AB294 #### Rn Integrated: RADHA SIMMONS ([id number]) [facility]) [address] [place] [address] Platelet mean volume (Bld) [Entitic vol] 9.5 fL Normal 9.0-12.7 [facility] Comment on above: Performed By: #### L AB294 #### Rn Integrated: RADHA SIMMONS ([id number]) [facility] ([facility]) [address] [place] [address] Platelets (Bld) [#/Vol] 201 10*3/uL Normal 140-440 [facility] Comment on above: Performed By: #### L [id number] #### Rn Integrated: RADHA SIMMONS ([id number]) [facility]) [address] [place] [address] RBC (Bld) [#/Vol] 4.76 10*6/uL Normal 4.40-5.90 [facility] Comment on above: Performed By: #### L [id number] #### Rn Integrated: RADHA SIMMONS ([id number]) [facility] ([facility]) [address] [place] [address] WBC (Bld) [#/Vol] 8.3 10*3/uL Normal 3.6-10.7 [facility] Comment on above: Performed By: #### L [id number] #### Rn Integrated: RADHA SIMMONS ([id number]) [facility] ([facility]) [address] [place] [address] CBC panel Auto (Bld)Ordered By: Eduin Brar on 10-04-2023 Erythrocyte distribution width (RBC) [Ratio] 17.9 % High 11.5 - 15.0 % [facility] Hematocrit (Bld) [Volume fraction] 39.6 % Low 40.0 - 52.0 % [facility] Hemoglobin (Bld) [Mass/Vol] 11.3 g/dL Low 13.0 - 18.0 g/dL [facility] Interpretation and review of laboratory results Abnormal [facility] MCH (RBC) [Entitic mass] 23.7 pg Low 26.0 - 34.0 pg [facility] MCHC (RBC) [Mass/Vol] 28.5 % Low 30.5 - 36.0 % [facility] MCV (RBC) [Entitic vol] 83.2 fL 77.0 - 99.0 fL [facility] Platelet mean volume (Bld) [Entitic vol] 9.5 fL 9.0 - 12.7 fL [facility] Platelets (Bld) [#/Vol] 201 10*3/uL 140 - 440 10*3/uL [facility] RBC (Bld) [#/Vol] 4.76 10*6/uL 4.40 - 5.90 10*6/uL [facility] WBC (Bld) [#/Vol] 8.3 10*3/uL 3.6 - 10.7 10*3/uL [facility] Consulton 10-04-2023 Consult Inpatient consult to Endovascular Neurology-- Consult performed by: Mey Loya APRN - CONCRETE INSPECTOR Consult ordered by: Raphael Stone MD Reason for consult: vertebbral artery occlusion/ stenosis History Of Present Illness Krunal Leos is a 58 y.o. male presenting with left face and hand weakness in setting of chronic dizziness. Pt does have history of atrial fibrillation on Eliquis. Pt reports residential episodic room spinning with diaphoresis that lasts [...] and symmetric in all four extremities. Coordination Sbdxhu-nv-xnlm, rapid alternating movements and fqvy-ah-wjts normal bilaterally without dysmetria. Awake and alert [...] intervention indicated (more content not included)... Normal [facility] Consult INITIAL CONSULT NOTE . STROKE SERVICE Patient Name: Krunal Leos Patient : 1965 Acct: [id number] Date of Admission: 10/03/2023 Room[facility]: [facility] A PCP: RADHA KHAN History of Present Ilness: 58 y.o. is man with the chief Complaint of: transferred from [place] for further evaluation of severe cerebrovascular disease [...] EC tablet 40 mg, 40 mg, Oral, [facility], Michael Rico MD, 40 mg at [...] place Me (more content not included)... Normal [facility] Consult ----- ----- Attestation signed by [...] of Eliquis last night - follow up [facility] service evaluation - further plans to follow [...] ?F) SpO2: (more content not included)... Normal [facility] HEMOGLOBIN A1Con 10-04-2023 Glucose [Mass/Vol] 177 mg/dL Normal [facility] Comment on above: Performed By: #### L AB90 ####Rn Integrated: RADHA SIMMONS ([id number])[address] HbA1c (Bld) [Mass fraction] 7.8 % High <5.7 [facility] Comment on above: Result Comment: Norm al less than 5.7% Prediabetes 5.7% to 6.4% Diabetes 6.5% or higher --HgbA1C levels may not be accurate in patients who have renal disease, received recent blood transfusions, are anemic, or who have dyshemoglobinemia. Performed By: #### L AB90 ####Rn Integrated: RADHA SIMMONS ([id number])[facility])[address] [place] [address] LIPID PANELon 10-04-2023 Cholesterol [Mass/Vol] 147 mg/dL Normal <200 [facility] Comment on above: Performed By: #### L [id number], LAB18 ####Rn Integrated: RADHA SIMMONS ([id number])[address] Cholesterol in HDL [Mass/Vol] 27 mg/dL Low 40-60 [facility] Comment on above: Performed By: #### L [id number], LAB18 ####Rn Integrated: RADHA SIMMONS ([id number])[address] Cholesterol.total/Arsenio sterol in HDL [Mass ratio] 5 {ratio} Normal [facility] Comment on above: Result Comment: Ref Range: < 3 Low Risk for CHD 3-6 Mod Risk for CHD > 6 High Risk for CHD Performed By: #### L [id number], LAB18 ####Rn Integrated: RADHA SIMMONS ([id number])[facility] ([facility])[address] [place] [address] LOW DENSITY LIPOPROTEIN 41 mg/dL Normal 0-<100 [facility] Comment on above: Performed By: #### L [id number], LAB18 ####Rn Integrated: RADHA SIMMONS ([id number])[facility] ([facility])[address] [place] [address] Triglyceride [Mass/Vol] 397 mg/dL High <150 [facility] Comment on above: Performed By: #### L [id number], LAB18 ####Rn Integrated: RADHA SIMMONS ([id number])[facility] ([facility])[address] [place] [address] Laboratory - Chemistry and C hemistry - challengeon 10-04-2023 Glucose [Mass/Vol] 221 mg/dL High 70 - 100 mg/dL [facility] Glucose [Mass/Vol] 157 mg/dL High 70 - 100 mg/dL [facility] Troponin I.cardiac [Mass/Vol] ng/mL [facility] ng/mL [facility] Glucose [Mass/Vol] 162 mg/dL High 70 - 100 mg/dL [facility] Troponin I.cardiac [Mass/Vol] ng/mL [facility] - 0.034 ng/mL [facility] Glucose [Mass/Vol] 193 mg/dL High 70 - 100 mg/dL [facility] Average glucose Estimated from glycated hemoglobin (Bld) [Mass/Vol] 177 mg/dL [facility] Laboratory - Coagulationon 0 10-04-2023 aPTT Coag (PPP) [Time] 27.3 s 20.0 - 30.5 s [facility] INR Coag (PPP) [Relative time] 1.0 {INR} 0.9 - 1.1 [facility] Comment on above: Recommended Anticoag ulant [...] 10.9 s 9.0 - 1 2.0 s [facility] Laboratory - Hematology and Cell countson 10-04-2023 HbA1c (Bld) [Mass fraction] 7.8 % High NINF - 5.7 % [facility] Comment on above: Normal less than 5.7 % Prediabetes 5.7% to 6.4% Diabetes 6.5% or higher --HgbA1C levels may not be accurate in patients who have renal disease, received recent blood transfusions, are anemic, or who have dyshemoglobinemia. Lipid 1996 panelon 4 Cholesterol [Mass/Vol] 147 mg/dL NINF - 200 mg/dL [facility] Cholesterol in HDL [Mass/Vol] 27 mg/dL Low 40 - 60 mg/dL [facility] Cholesterol in LDL [Mass/Vol] 41 mg/dL 0 - <100 [facility] Cholesterol.total/Arsenio sterol in HDL [Mass ratio] 5 {ratio} [facility] Comment on above: Ref Range: < 3 Low Risk for CHD 3-6 Mod Risk for CHD > 6 High Risk for CHD Interpretation and review of laboratory results Abnormal [facility] Triglyceride [Mass/Vol] 397 mg/dL High NINF - 150 mg/dL [facility] No Panel Informationon 10-03 Interpretation and review of laboratory results Abnormal [facility] Performed by: [facility], [address] [place], [place] [id number] CLIA ID: [id number] [facility] Interpretation and review of laboratory results Abnormal [facility] Performed by: [facility], [address] [place] [id number] CLIA ID: [id number] [facility] Interpretation and review of laboratory results Normal [facility] Addendum by Analia Zamudio MD [...] and heterogeneous plaque. Subclavian has turbulent flow. Scratch Polisher Details A carvalho scale, color Doppler imaging and spectral Doppler analysis ultrasound was performed. During the study longitudinal and transverse views were obtained. Pulsed wave doppler was performed. The exam was performed with the patient in the supine position. Overall the study quality was adequate. Study was technically difficult due to: acoustic shadowing and body habitus. [facility] Interpretation and review of laboratory results Abnormal [facility] Performed by: [facility], [address] [place] [address] CLIA ID: [id number] [facility] Interpretation and review of laboratory results Abnormal [facility] Performed by: [facility], [address] [place] [address] CLIA ID: [id number] [facility] Interpretation and review of laboratory results Abnormal [facility] No Panel InformationOrdered By: Analia Zamudio on 10-04-2023 Left CCA dist EDV 36.3 cm/s [facility] Work Phone: Left CCA dist PSV 252.1 cm/s [facility] Work Phone: Left CCA mid EDV 40.30 cm/s [facility] Work Phone: Left CCA mid PSV [...] Phone: Right ICA dist EDV 24.7 cm/s [facility] Work Phone: [phone] Right ICA dist PSV 78.9 cm/s [facility] Work Phone: [phone] Right ICA mid EDV 30.1 cm/s [facility] [employer] Work Phone: [phone] Right ICA mid PSV 97.5 cm/s [facility] [employer] [facility] Work Phone: [phone] Right ICA prox EDV 16.0 cm/s [facility] Work Phone: [phone] Right ICA prox PSV 74.3 cm/s [employer] Work Phone: [phone] Right ICA/CCA PSV 0.90 [facility] Work Phone: [phone] Right subclavian mid EDV 9.7 cm/s [facility] Work Phone: [phone] Right subclavian mid PSV 66.0 cm/s [facility] Work Phone: [phone] Right vertebral EDV 12.00 cm/s [facility] Work Phone: [phone] Right vertebral PSV 47.5 cm/s [facility] Work Phone: [phone] PROTIME AND APTTon 4 aPTT Coag (Bld) [Time] 27.3 s Normal 20.0-30.5 [facility] Comment on above: Performed By: #### L [id number] ####Rn Integrated: RADHA SIMMONS ([id number])[address] INR Coag (PPP) [Relative time] 1.0 {INR} Normal 0.9-1.1 [facility] Comment on above: Result Comment: Luciano [...] prevent Myocardial Infarction Performed By: #### L [id number] ####Rn Integrated: RADHA SIMMONS ([id number])[facility])[address] [place] [address] PT Coag (PPP) [Time] 10.9 s Normal 9.0-12.0 [facility] Comment on above: Performed By: #### L [id number] ####Rn Integrated: RADHA SIMMONS ([id number])[facility] ([facility])[address] [place] [address] [place] TROPONIN Ion 10-04-2023 Troponin I.cardiac [Mass/Vol] ng/mL Normal <0.034 [facility] Comment on above: Result Comment: DAPHNE Lang COMMENTS: Patients with high levels of Biotin oral intake (ie >5 mg/day) may have falsely decreased Troponin levels. Performed By: #### L [id number], LAB18 ####Rn Integrated: RADHA SIMMONS ([id number])[address] TROPONIN, WITH SERIAL REFLEX on 10-04-2023 Troponin I.cardiac [Mass/Vol] ng/mL Normal <0.034 [facility] Comment on above: Result Comment: DAPHNE Lang COMMENTS: Patients with high levels of Biotin oral intake (ie >5 mg/day) may have falsely decreased Troponin levels. Performed By: #### L [id number] ####Rn Integrated: RADHA SIMMONS ([id number])[facility])[address] [place] [address] Troponin I.cardiac [Mass/Vol ]on 10-04-2023 Interpretation and review of laboratory results Normal [facility] Patients with high l evels of Biotin oral intake (ie >5 mg/day) may have falsely decreased Troponin levels. [facility] Interpretation and review of laboratory results Normal [facility] Patients with high l evels of Biotin oral intake (ie >5 mg/day) may have falsely decreased Troponin levels. [facility] .Auto Diffon 10-03-2023 Basophil, Absolute 0.1 10 3/mcL Normal 0.0-0.2 [facility] ([place]) Comment on above: Performed By: #### M G, GFR, ADIFF, ANEU, CBC, CMP ####[address] [place], [place] [address] Basophils/100 WBC (Bld) 1.0 % Normal 0.0-2.5 [facility] ([place]) Comment on above: Performed By: #### M G, GFR, ADIFF, ANEU, CBC, CMP ####[address] [place], [place] [address] Eosinophil, Absolute 0.4 10 3/mcL Normal 0.0-0.4 [facility] ([place]) Comment on above: Performed By: #### M G, GFR, ADIFF, ANEU, CBC, CMP ####[address] [place], [place] [address] Eosinophils/100 WBC (Bld) 5.1 % Normal 0.0-7.0 [facility] ([place]) Comment on above: Performed By: #### M G, GFR, ADIFF, ANEU, CBC, CMP ####[address] [place], [place] [address] Lymphocyte, Absolute 1.6 10 3/mcL Normal 0.8-3.9 [facility] ([place]) Comment on above: Performed By: #### M G, GFR, ADIFF, ANEU, CBC, CMP ####[address] [place], [place] [address] Lymphocytes/100 WBC (Bld) 20.4 % Normal 10.0-50.0 [facility] ([place]) Comment on above: Performed By: #### M G, GFR, ADIFF, ANEU, CBC, CMP ####[address] [place], [place] [address] Monocyte, Absolute 0.9 10 3/mcL Normal 0.2-1.0 [facility] ([place]) Comment on above: Performed By: #### M G, GFR, ADIFF, ANEU, CBC, CMP ####[address] [place], [place] [address] Monocytes/100 WBC (Bld) 11.5 % Normal 1.7-13.0 [facility] ([place]) Comment on above: Performed By: #### M G, GFR, ADIFF, ANEU, CBC, CMP ####[address] [place], [place] [address] Neutrophils/100 WBC (Bld) 62.0 % Normal 37.0-80.0 [facility] ([place]) Comment on above: Performed By: #### M G, GFR, ADIFF, ANEU, CBC, CMP ####[address] [place], [place] [address] .GFRon 10-03-2023 GFR Non- 72 ml/min/1.73sqm Normal [facility] ([place]) Comment on above: Result Comment: GFR Population [...] G, GFR, ADIFF, ANEU, CBC, CMP ####[address] [place], [place] [address] GFR 87 ml/min/1.73sqm Normal [facility] ([place]) Comment on above: Result Comment: GFR Population [...] GFR, ADIFF, ANEU, CBC, CMP ####[address] [place], [place] [address] .NEUABSon 10-03-2023 Neutrophil, Absolute 4.7 10 3/mcL Normal 2.9-6.2 [facility] ([place]) Comment on above: Performed By: #### M G, GFR, ADIFF, ANEU, CBC, CMP ####[address] [place], [place] [address] CBCon 10-03-2023 Erythrocyte distribution width (RBC) [Ratio] 18.3 % High 11.5-14.5 [facility] ([place]) Comment on above: Performed By: #### M G, GFR, ADIFF, ANEU, CBC, CMP ####[address] [place], [place] [address] Hematocrit (Bld) [Volume fraction] 32.0 % Low 42.0-52.0 [facility] ([place]) Comment on above: Performed By: #### M G, GFR, ADIFF, ANEU, CBC, CMP ####[address] [place], [place] [address] Hgb 10.5 G/dL Low 14.0-18.0 [facility] ([place] Comment on above: Performed By: #### M G, GFR, ADIFF, ANEU, CBC, CMP ####[address] [place], [place] [address] MCH (RBC) [Entitic mass] 24.5 pg Low 27.0-31.2 [facility] ([place]) Comment on above: Performed By: #### M G, GFR, ADIFF, ANEU, CBC, CMP ####[address] [place], [place] [address] MCHC 32.9 G/dL Normal 31.8-35.4 [facility] ([place] Comment on above: Performed By: #### M G, GFR, ADIFF, ANEU, CBC, CMP ####[address] [place], [place] [address] MCV (RBC) [Entitic vol] 74.3 fL Low 80.0-94.0 A [facility] ([place]) Comment on above: Performed By: #### M G, GFR, ADIFF, ANEU, CBC, CMP ####[address] [place], [place] [address] Platelet 211 10 3/mcL Normal 130-400 [facility] ([place]) Comment on above: Performed By: #### M G, GFR, ADIFF, ANEU, CBC, CMP ####[address] [place], [place] [address] Platelet mean volume (Bld) [Entitic vol] 7.6 fL Normal 7.4-10.4 [facility] ([place]) Comment on above: Performed By: #### M G, GFR, ADIFF, ANEU, CBC, CMP ####[address] [place], [place] [address] RBC 4.31 10 6/mcL Normal 4.04-6.13 [facility] ([place]) Comment on above: Performed By: #### M G, GFR, ADIFF, ANEU, CBC, CMP ####[address] [place], [place] [address] WBC 7.6 10 3/mcL Normal 4.6-10.8 [facility] ([place]) Comment on above: Performed By: #### Savannah G, GFR, ADIFF, ANEU, CBC, CMP ####[address] [place], [place] [address] CMPon 10-03-2023 Albumin Level 3.1 G/dL Low 3.4-4.8 [facility] ([place]) Comment on above: Performed By: #### M G, GFR, ADIFF, ANEU, CBC, CMP ####[address] [place], [place] [address] Albumin/Globulin [Mass ratio] 0.8 {ratio} Low 1.1-2.5 [facility] ([place]) Comment on above: Performed By: #### M G, GFR, ADIFF, ANEU, CBC, CMP ####[address] [place], [place] [address] ALP [Catalytic activity/Vol] 93 U/L Normal 40-135 [facility] ([place]) Comment on above: Performed By: #### M G, GFR, ADIFF, ANEU, CBC, CMP ####[address] [place], [place] [address] ALT [Catalytic activity/Vol] 20 U/L Normal 16-63 [facility] ([place]) Comment on above: Performed By: #### M G, GFR, ADIFF, ANEU, CBC, CMP ####[address] [place], [place] [address] AST [Catalytic activity/Vol] 15 U/L Normal 10-40 [facility] ([place]) Comment on above: Performed By: #### M G, GFR, ADIFF, ANEU, CBC, CMP ####[address] [place], [place] [address] Bili Total 0.5 mg/dL Normal 0.2-1.0 [facility] ([place]) Comment on above: Result Comment: Use of this assay is not recommended for patients undergoing treatment with eltrombopag due to the potential for falsely elevated results. Performed By: #### M G, GFR, ADIFF, ANEU, CBC, CMP ####[address] [place], [place] [address] BUN/Creatinine Ratio 17 ratio Normal 7-27 [facility] ([place]) Comment on above: Performed By: #### M G, GFR, ADIFF, ANEU, CBC, CMP ####[address] [place], [place] [address] Calcium [Mass/Vol] 8.9 mg/dL Normal 8.4-10.2 [facility] ([place]) Comment on above: Performed By: #### M G, GFR, ADIFF, ANEU, CBC, CMP ####[address] [place], [place] [address] Chloride [Moles/Vol] 104 mmol/L Normal 98-107 [facility] ([place]) Comment on above: Performed By: #### M G, GFR, ADIFF, ANEU, CBC, CMP ####[address] [place], [place] [address] CO2 [Moles/Vol] 27 mmol/L Normal 23-31 [facility] ([place]) Comment on above: Performed By: #### M G, GFR, ADIFF, ANEU, CBC, CMP ####[address] [place], [place] [address] Creatinine [Mass/Vol] 1.05 mg/dL Normal 0.70-1.30 [facility] ([place]) Comment on above: Performed By: #### M G, GFR, ADIFF, ANEU, CBC, CMP ####[address] [place], [place] [address] Electrolyte Balance 7.0 mEq/L Normal 4.0-15.0 [facility] ([place]) Comment on above: Performed By: #### M G, GFR, ADIFF, ANEU, CBC, CMP ####[address] [place], [place] [address] Globulin 3.9 G/dL Normal [facility] ([place]) Comment on above: Performed By: #### M G, GFR, ADIFF, ANEU, CBC, CMP ####[address] [place], [place] [address] Glucose [Mass/Vol] 158 mg/dL High 80-115 [facility] ([place]) Comment on above: Performed By: #### M G, GFR, ADIFF, ANEU, CBC, CMP ####[address] [place], [place] [address] Potassium [Moles/Vol] 4.5 mmol/L Normal 3.5-5.1 [facility] ([place]) Comment on above: Performed By: #### M G, GFR, ADIFF, ANEU, CBC, CMP ####[address] [place], [place] [address] Sodium [Moles/Vol] 138 mmol/L Normal 136-145 [facility] ([place]) Comment on above: Performed By: #### M G, GFR, ADIFF, ANEU, CBC, CMP ####[address] [place], [place] [address] Total Protein 7.0 G/dL Normal 6.4-8.2 [facility] ([place]) Comment on above: Performed By: #### M G, GFR, ADIFF, ANEU, CBC, CMP ####[address] [place], [place] [address] Urea nitrogen [Mass/Vol] 18 mg/dL Normal 7-18 [facility] ([place]) Comment on above: Performed By: #### M G, GFR, ADIFF, ANEU, CBC, CMP ####[address] [place], [place] [address] CT ANGIOGRAPHY HEAD W/ CONTR Arpit 10-03-2023 [...] 10/03/2023 10:41:49 AM Ordering Provider: ABDULLAHI AGUIRRE [facility] ([place]) CT ANGIOGRAPHY NECK W/CONTRA Kassidy 10-03-2023 CT [...] 10/03/2023 10:41:06 AM Ordering Provider: ABDULLAHI AGUIRRE [facility] ([place]) CT HEAD OR BRAIN W/O CONTRAS Ton [...] 10/01/2023 11:46:49 PM Ordering Provider: TITA Echevarria [facility] ([place]) LABORATORYOrdered By: Kwasi Rob on 10-03-2023 Blood Glucose Testing Reason Routine (10/03/23 4:43 PM) [facility] Work Phone: Glucose [Mass/Vol] 267 mg/dL High 82 - 115 mg/dL [facility] Work Phone: Blood Glucose Testing Reason Routine (10/03/23 11:39 AM) [facility] Work Phone: Glucose [Mass/Vol] 210 mg/dL High 82 - 115 mg/dL [facility] Work Phone: Blood Glucose Testing Reason Routine (10/03/23 7:58 AM) [facility] Work Phone: Glucose [Mass/Vol] 214 mg/dL High 82 - 115 mg/dL [facility] Work Phone: LABORATORYOrdered By: SYSTEM SYSTEM [...] 10-03-2023 Magnesium [Mass/Vol] 2.0 mg/dL Normal 1.8-2.4 [facility] ([place]) Comment on above: Performed By: #### M G, GFR, ADIFF, ANEU, CBC, CMP ####[address] [place], [place] [address] Nursing Noteon 10-03-2023 Nursing Note Pt arrived from [facility], ambulated to bed, NIH scale 1, pt A&O x 4, denies numbness or tingling, denies headache or dizziness, denies needs at this time, call light and belongings within reach, will monitor. Normal [facility] .Auto DiffOrdered By: SYSTEM SYSTEM on 10-02-2023 Basophil, Absolute 0.1 103/mcL Normal 0.0-0.2 AO Wo rkflow SS Comment on above: Performed By: #### C BC, ADIFF, MG, GFR, ANEU, CMP ####[address] [place], [place] [address] Basophils/100 WBC (Bld) 1.0 % Normal 0.0-2.5 A O Workflow SS Comment on above: Performed By: #### C BC, ADIFF, MG, GFR, ANEU, CMP ####[address] [place], [place] [address] Eosinophil, Absolute 0.3 103/mcL Normal 0.0-0.4 AO Workflow SS Comment on above: Performed By: #### C BC, ADIFF, MG, GFR, ANEU, CMP ####[address] [place], [place] [address] Eosinophils/100 WBC (Bld) 3.8 % Normal 0.0-7.0 AO Workflow SS Comment on above: Performed By: #### C BC, ADIFF, MG, GFR, ANEU, CMP ####[address] [place], [place] [address] Lymphocyte, Absolute 1.6 103/mcL Normal 0.8-3.9 AO Workflow SS Comment on above: Performed By: #### C BC, ADIFF, MG, GFR, ANEU, CMP ####[address] [place], [place] [address] Lymphocytes/100 WBC (Bld) 23.2 % Normal 10.0-50.0 AO Workflow SS Comment on above: Performed By: #### C BC, ADIFF, MG, GFR, ANEU, CMP ####[address] [place], [place] [address] Monocyte, Absolute 0.7 103/mcL Normal 0.2-1.0 AO Wo rkflow SS Comment on above: Performed By: #### C BC, ADIFF, MG, GFR, ANEU, CMP ####[address] [place], [place] [address] Monocytes/100 WBC (Bld) 9.7 % Normal 1.7-13.0 A O Workflow SS Comment on above: Performed By: #### C BC, ADIFF, MG, GFR, ANEU, CMP ####[address] [place], [place] [address] Neutrophils/100 WBC (Bld) 62.3 % Normal 37.0-80.0 AO Workflow SS Comment on above: Performed By: #### C BC, ADIFF, MG, GFR, ANEU, CMP ####[address] [place], [place] [address] .GFRon 10-02-2023 GFR 76 ml/min/1.73sqm Normal [facility] ([place]) Comment on above: Result Comment: GFR Population [...] ADIFF, MG, GFR, ANEU, CMP ####J[address] [place], [place] [address] GFR Non- 63 ml/min/1.73sqm Normal [facility] ([place]) Comment on above: Result Comment: GFR Population [...] BC, ADIFF, MG, GFR, ANEU, CMP ####Jarred [address] [place], [place] [address] .NEUABSOrdered By: SYSTEM SY STEM on 10-02-2023 Neutrophil, Absolute 4.4 103/mcL Normal 2.9-6.2 AO Workflow SS Comment on above: Performed By: #### C BC, ADIFF, MG, GFR, ANEU, CMP ####J[address] [place], [place] [address] A1Con 10-02-2023 HbA1c (Bld) [Mass fraction] 7.7 % High 4.3-6.4 [facility] ([place]) Comment on above: Performed By: #### F T4, LIPID, A1C, TSH #### Jarred [address] [address] CBCOrdered By: SYSTEM SYSTEM on 10-02-2023 Erythrocyte distribution width (RBC) [Ratio] 18.7 % High 11.5-14.5 AO Workflow SS Comment on above: Performed By: #### C BC, ADIFF, MG, GFR, ANEU, CMP ####Jar[address] [place], [place] [address] Hematocrit (Bld) [Volume fraction] 33.0 % Low 42.0-52.0 AO Workflow SS Comment on above: Performed By: #### C BC, ADIFF, MG, GFR, ANEU, CMP ####[address] [place], [place] [address] MCH (RBC) [Entitic mass] 24.6 pg Low 27.0-31.2 AO Workflow SS Comment on above: Performed By: #### C BC, ADIFF, MG, GFR, ANEU, CMP ####J[address] [place], [place] [address] MCHC 32.8 G/dL Normal 31.8-35.4 AO Workflow SS Comment on above: Performed By: #### C BC, ADIFF, MG, GFR, ANEU, CMP ####J[address] [place], [place] [address] MCV (RBC) [Entitic vol] 75.0 fL Low 80.0-94.0 A O Workflow SS Comment on above: Performed By: #### C BC, ADIFF, MG, GFR, ANEU, CMP ####Jar[address] [place], [place] [address] Platelet mean volume (Bld) [Entitic vol] 7.5 fL Normal 7.4-10.4 AO Workflow SS Comment on above: Performed By: #### C BC, ADIFF, MG, GFR, ANEU, CMP ####Jarred [address] [place], [place] [address] CBCon 10-02-2023 Hgb 10.8 G/dL Low 14.0-18.0 [facility] ([place]) Comment on above: Performed By: #### C BC, ADIFF, MG, GFR, ANEU, CMP ####Jarred [address] [place], [place] [address] Platelet 220 10 3/mcL Normal 130-400 [facility] ([place]) Comment on above: Performed By: #### C BC, ADIFF, MG, GFR, ANEU, CMP ####Jarred [address] [place], [place] [address] RBC 4.40 10 6/mcL Normal 4.04-6.13 [facility] ([place] Comment on above: Performed By: #### C BC, ADIFF, MG, GFR, ANEU, CMP ####Jarred [address] [place], [place] [address] WBC 7.0 10 3/mcL Normal 4.6-10.8 [facility] ([place] Comment on above: Performed By: #### C BC, ADIFF, MG, GFR, ANEU, CMP ####Jarred [address] [place], [place] [address] CMPon 10-02-2023 Albumin Level 3.2 G/dL Low 3.4-4.8 [facility] ([place] Comment on above: Performed By: #### C BC, ADIFF, MG, GFR, ANEU, CMP ####Jarred [address] [place], [place] [address] ALT [Catalytic activity/Vol] 25 U/L Normal 16-63 [facility] ([place] Comment on above: Performed By: #### C BC, ADIFF, MG, GFR, ANEU, CMP ####[address] [place], [place] [address] AST [Catalytic activity/Vol] 17 U/L Normal 10-40 [facility] ([place] Comment on above: Performed By: #### C BC, ADIFF, MG, GFR, ANEU, CMP ####Jarred [address] [place], [place] [address] Bili Total 0.4 mg/dL Normal 0.2-1.0 [facility] ([place]) Comment on above: Result Comment: Use of this assay is not recommended for patients undergoing treatment with eltrombopag due to the potential for falsely elevated results. Performed By: #### C BC, ADIFF, MG, GFR, ANEU, CMP ####Jarred [address] [place], [place] [address] BUN/Creatinine Ratio 21 ratio Normal 7-27 [facility]) Comment on above: Performed By: #### C BC, ADIFF, MG, GFR, ANEU, CMP ####Jarred [address] [place], [place] [address] Total Protein 7.3 G/dL Normal 6.4-8.2 [facility] ([place] Comment on above: Performed By: #### C BC, ADIFF, MG, GFR, ANEU, CMP ####Jarred [address] [place], [place] [address] CMPOrdered By: SYSTEM SYSTEM on 10-02-2023 Albumin/Globulin [Mass ratio] 0.8 {ratio} Low 1.1-2.5 AO ADM SS Comment on above: Performed By: #### C BC, ADIFF, MG, GFR, ANEU, CMP ####[address] [place], [place] [address] ALP [Catalytic activity/Vol] 99 U/L Normal 40-135 AO ADM SS Comment on above: Performed By: #### C BC, ADIFF, MG, GFR, ANEU, CMP ####Jarred [address] [place], [place] [address] Calcium [Mass/Vol] 8.8 mg/dL Normal 8.4-10.2 AO ADM SS Comment on above: Performed By: #### C BC, ADIFF, MG, GFR, ANEU, CMP ####[address] [place], [place] [address] Chloride [Moles/Vol] 105 mmol/L Normal 98-107 AO A DM SS Comment on above: Performed By: #### C BC, ADIFF, MG, GFR, ANEU, CMP ####Jarred [address] [place], [place] [address] CO2 [Moles/Vol] 24 mmol/L Normal 23-31 AO ADM SS Comment on above: Performed By: #### C BC, ADIFF, MG, GFR, ANEU, CMP ####Jarred [address] [place], [place] [address] Creatinine [Mass/Vol] 1.18 mg/dL Normal 0.70-1.30 AO ADM SS Comment on above: Performed By: #### C BC, ADIFF, MG, GFR, ANEU, CMP ####Jarred [address] [place], [place] [address] Electrolyte Balance 11.0 mEq/L Normal 4.0-15.0 AO AD M SS Comment on above: Performed By: #### C BC, ADIFF, MG, GFR, ANEU, CMP ####Jarred [address] [place], [place] [address] Globulin 4.1 G/dL Normal AO ADM SS Comment on above: Performed By: #### C BC, ADIFF, MG, GFR, ANEU, CMP ####Jarred [address] [place], [place] [address] Glucose [Mass/Vol] 80 mg/dL Normal 80-115 AO ADM SS Comment on above: Performed By: #### C BC, ADIFF, MG, GFR, ANEU, CMP ####Jarred [address] [place], [place] [address] Potassium [Moles/Vol] 3.9 mmol/L Normal 3.5-5.1 AO ADM SS Comment on above: Performed By: #### C BC, ADIFF, MG, GFR, ANEU, CMP ####Jarred [address] [place], [place] [address] Sodium [Moles/Vol] 140 mmol/L Normal 136-145 AO ADM SS Comment on above: Performed By: #### C BC, ADIFF, MG, GFR, ANEU, CMP ####[address] [address] Urea nitrogen [Mass/Vol] 25 mg/dL High 7-18 AO ADM SS Comment on above: Performed By: #### C BC, ADIFF, MG, GFR, ANEU, CMP ####J[address] [place], [place] [address] FT4on 10-02-2023 Free T4 [Mass/Vol] 0.99 ng/dL Normal 0.76-1.46 [facility] ([place]) Comment on above: Performed By: #### F T4, LIPID, A1C, TSH #### [address] [place], [place] [address] LABORATORYOrdered By: SYSTEM SYSTEM on 10-02-2023 Albumin [...] Cholesterol [Mass/Vol] 182 mg/dL Normal 0-200 [facility] ([place]) Comment on above: Result Comment: Chol esterol Reference Interval: Less than 200 Desirable 200-239 Borderline high risk 240 and above High risk Performed By: #### F T4, LIPID, A1C, TSH #### Jarred [address] [address] Cholesterol in HDL [Mass/Vol] 37 mg/dL Low 40-60 [facility] ([place]) Comment on above: Performed By: #### F T4, LIPID, A1C, TSH #### Jarred [address] [address] Cholesterol in LDL [Mass/Vol] 80 mg/dL Normal 0-130 [facility] ([place]) Comment on above: Performed By: #### F T4, LIPID, A1C, TSH #### Jarred [address] [address] Triglyceride [Mass/Vol] 323 mg/dL High 0-150 A [facility] ([place]) Comment on above: Result Comment: Trig lyceride Reference Interval: Less than 150 Normal 150-199 Borderline high risk 200-499 High risk 500 or higher Very high risk Performed By: #### F T4, LIPID, A1C, TSH #### Jarred [address] [address] MGOrdered By: SYSTEM SYSTEM on 10-02-2023 Magnesium [Mass/Vol] 1.9 mg/dL Normal 1.8-2.4 AO A DM SS Comment on above: Performed By: #### C BC, ADIFF, MG, GFR, ANEU, CMP ####Jarred [address] [place], [place] [address] MRI BRAIN W/O CONTRASTon MRI BRAIN W/O [...] 10/02/2023 8:38:30 AM Ordering Provider: CHITO Echevarria [facility] ([place]) TSHon 10-02-2023 TSH Qn 3.31 m[IU]/L Normal 0.36-3.74 [facility] ([place]) Comment on above: Performed By: #### F T4, LIPID, A1C, TSH #### [address] [place], [place] [address] .Auto Diffon 10-01-2023 Basophil, Absolute 0.1 10 3/mcL Normal 0.0-0.2 [facility] ([place]) Comment on above: Performed By: #### A JORGE, CMP, ADIFF, TROPHS, CBC, GFR, MDW, MG ####J[address] [place], [place] [address] Basophils/100 WBC (Bld) 1.4 % Normal 0.0-2.5 [facility] ([place]) Comment on above: Performed By: #### A JORGE, CMP, ADIFF, TROPHS, CBC, GFR, MDW, MG ####Jarred [address] [place], [place] [address] Eosinophil, Absolute 0.4 10 3/mcL Normal 0.0-0.4 [facility] ([place]) Comment on above: Performed By: #### A JORGE, CMP, ADIFF, TROPHS, CBC, GFR, MDW, MG ####J[address] [place], [place] [address] Eosinophils/100 WBC (Bld) 3.7 % Normal 0.0-7.0 [facility] ([place]) Comment on above: Performed By: #### A JORGE, CMP, ADIFF, TROPHS, CBC, GFR, MDW, MG ####J[address] [place], [place] [address] Lymphocyte, Absolute 2.5 10 3/mcL Normal 0.8-3.9 [facility] ([place]) Comment on above: Performed By: #### A JORGE, CMP, ADIFF, TROPHS, CBC, GFR, MDW, MG ####J[address] [place], [place] [address] Lymphocytes/100 WBC (Bld) 23.6 % Normal 10.0-50.0 [facility] ([place]) Comment on above: Performed By: #### A JORGE, CMP, ADIFF, TROPHS, CBC, GFR, MDW, MG ####J[address] [place], [place] [address] Monocyte, Absolute 1.0 10 3/mcL Normal 0.2-1.0 [facility] ([place] Comment on above: Performed By: #### A JORGE, CMP, ADIFF, TROPHS, CBC, GFR, MDW, MG ####J[address] [place], [place] [address] Monocytes/100 WBC (Bld) 9.7 % Normal 1.7-13.0 [facility] ([place]) Comment on above: Performed By: #### A JORGE, CMP, ADIFF, TROPHS, CBC, GFR, MDW, MG ####J[address] [place], [place] [address] Neutrophils/100 WBC (Bld) 61.6 % Normal 37.0-80.0 [facility] ([place] Comment on above: Performed By: #### A JORGE, CMP, ADIFF, TROPHS, CBC, GFR, MDW, MG ####Jarred [address] [place], [place] [address] .GFRon 10-01-2023 GFR 59 ml/min/1.73sqm Normal [facility] ([place]) Comment on above: Result Comment: GFR Population [...] ADIFF, TROPHS, CBC, GFR, MDW, MG ####Jarred [address] [place], [place] [address] GFR Non- 48 ml/min/1.73sqm Normal [facility] ([place]) Comment on above: Result Comment: GFR Population [...] CMP, ADIFF, TROPHS, CBC, GFR, MDW, MG ####[address] [address] .MDWon 10-01-2023 Monocyte Distribution Width 18.06 Normal 0.00-20.00 [facility] ([place]) Comment on above: Result Comment: For ED adult patients suspected of sepsis, MDW<=20.0 does not rule out sepsis or risk of sepsis Performed By: #### A JORGE, CMP, ADIFF, TROPHS, CBC, GFR, MDW, MG ####[address] [address] .NEUABSon 10-01-2023 Neutrophil, Absolute 6.5 10 3/mcL High 2.9-6.2 [facility] ([place]) Comment on above: Performed By: #### A JORGE, CMP, ADIFF, TROPHS, CBC, GFR, MDW, MG ####[place] [id number] CBCon 10-01-2023 Erythrocyte distribution width (RBC) [Ratio] 18.8 % High 11.5-14.5 [facility] ([place]) Comment on above: Performed By: #### A JORGE, CMP, ADIFF, TROPHS, CBC, GFR, MDW, MG #### [address] [address] Hematocrit (Bld) [Volume fraction] 33.8 % Low 42.0-52.0 [facility] ([place] Comment on above: Performed By: #### A JORGE, CMP, ADIFF, TROPHS, CBC, GFR, MDW, MG #### [address] [address] Hgb 11.0 G/dL Low 14.0-18.0 [facility] ([place] Comment on above: Performed By: #### A JORGE, CMP, ADIFF, TROPHS, CBC, GFR, MDW, MG #### [address] [address] MCH (RBC) [Entitic mass] 24.3 pg Low 27.0-31.2 [facility] ([place] Comment on above: Performed By: #### A JORGE, CMP, ADIFF, TROPHS, CBC, GFR, MDW, MG #### [address] [address] MCHC 32.5 G/dL Normal 31.8-35.4 [facility] ([place] Comment on above: Performed By: #### A JORGE, CMP, ADIFF, TROPHS, CBC, GFR, MDW, MG #### [address] [address] MCV (RBC) [Entitic vol] 74.7 fL Low 80.0-94.0 A [facility] ([place]) Comment on above: Performed By: #### A JORGE, CMP, ADIFF, TROPHS, CBC, GFR, MDW, MG #### [address] [address] Platelet 250 10 3/mcL Normal 130-400 [facility] ([place]) Comment on above: Performed By: #### A JORGE, CMP, ADIFF, TROPHS, CBC, GFR, MDW, MG #### [address] [address] Platelet mean volume (Bld) [Entitic vol] 7.7 fL Normal 7.4-10.4 [facility] ([place] Comment on above: Performed By: #### A JORGE, CMP, ADIFF, TROPHS, CBC, GFR, MDW, MG #### [address] [address] RBC 4.52 10 6/mcL Normal 4.04-6.13 [facility] ([place] Comment on above: Performed By: #### A JORGE, CMP, ADIFF, TROPHS, CBC, GFR, MDW, MG #### [address] [address] WBC 10.6 10 3/mcL Normal 4.6-10.8 [facility] ([place] Comment on above: Performed By: #### A JORGE, CMP, ADIFF, TROPHS, CBC, GFR, MDW, MG #### [place] [address] CMPon 10-01-2023 Albumin Level 3.4 G/dL Normal 3.4-4.8 [facility] ([place] Comment on above: Performed By: #### A JORGE, CMP, ADIFF, TROPHS, CBC, GFR, MDW, MG ####Jarred [address] [place], [place] [address] Albumin/Globulin [Mass ratio] 0.8 {ratio} Low 1.1-2.5 [facility] ([place] Comment on above: Performed By: #### A JORGE, CMP, ADIFF, TROPHS, CBC, GFR, MDW, MG ####J[address] [place], [place] [address] ALP [Catalytic activity/Vol] 97 U/L Normal 40-135 [facility] ([place] Comment on above: Performed By: #### A JORGE, CMP, ADIFF, TROPHS, CBC, GFR, MDW, MG ####[address] [place], [place] [address] ALT [Catalytic activity/Vol] 24 U/L Normal 16-63 [facility] ([place] Comment on above: Performed By: #### A JORGE, CMP, ADIFF, TROPHS, CBC, GFR, MDW, MG ####J[address] [place], [place] [address] AST [Catalytic activity/Vol] 19 U/L Normal 10-40 [facility] ([place] Comment on above: Performed By: #### A JORGE, CMP, ADIFF, TROPHS, CBC, GFR, MDW, MG ####Jarred [address] [place], [place] [address] Bili Total 0.5 mg/dL Normal 0.2-1.0 [facility] ([place] Comment on above: Result Comment: Use of this assay is not recommended for patients undergoing treatment with eltrombopag due to the potential for falsely elevated results. Performed By: #### A JORGE, CMP, ADIFF, TROPHS, CBC, GFR, MDW, MG ####[address] [place], [place] [address] BUN/Creatinine Ratio 20 ratio Normal 7-27 [facility] ([place] Comment on above: Performed By: #### A JORGE, CMP, ADIFF, TROPHS, CBC, GFR, MDW, MG ####Jarred [address] [place], [place] [address] Calcium [Mass/Vol] 8.9 mg/dL Normal 8.4-10.2 [facility] ([place] Comment on above: Performed By: #### A JORGE, CMP, ADIFF, TROPHS, CBC, GFR, MDW, MG ####Jarred [address] [place], [place] [address] Chloride [Moles/Vol] 104 mmol/L Normal 98-107 [facility] ([place] Comment on above: Performed By: #### A JORGE, CMP, ADIFF, TROPHS, CBC, GFR, MDW, MG ####Jarred [address] [place], [place] [address] CO2 [Moles/Vol] 22 mmol/L Low 23-31 [facility] ([place] Comment on above: Performed By: #### A JORGE, CMP, ADIFF, TROPHS, CBC, GFR, MDW, MG ####J[address] [place], [place] [address] Creatinine [Mass/Vol] 1.48 mg/dL High 0.70-1.30 [facility] ([place]) Comment on above: Performed By: #### A JORGE, CMP, ADIFF, TROPHS, CBC, GFR, MDW, MG ####Jar[address] [place], [place] [address] Electrolyte Balance 12.0 mEq/L Normal 4.0-15.0 [facility] ([place] Comment on above: Performed By: #### A JORGE, CMP, ADIFF, TROPHS, CBC, GFR, MDW, MG ####J[address] [place], [place] [address] Globulin 4.3 G/dL Normal [facility] ([place] Comment on above: Performed By: #### A JORGE, CMP, ADIFF, TROPHS, CBC, GFR, MDW, MG ####J[address] [place], [place] [address] Glucose [Mass/Vol] 151 mg/dL High 80-115 [facility] ([place] Comment on above: Performed By: #### A JORGE, CMP, ADIFF, TROPHS, CBC, GFR, MDW, MG ####Jarred [address] [place], [place] [address] Potassium [Moles/Vol] 4.0 mmol/L Normal 3.5-5.1 [facility] ([place] Comment on above: Performed By: #### A JORGE, CMP, ADIFF, TROPHS, CBC, GFR, MDW, MG ####J[address] [place], [place] [address] Sodium [Moles/Vol] 138 mmol/L Normal 136-145 [facility] ([place] Comment on above: Performed By: #### A JORGE, CMP, ADIFF, TROPHS, CBC, GFR, MDW, MG ####J[address] [place], [place] [address] Total Protein 7.7 G/dL Normal 6.4-8.2 [facility] ([place] Comment on above: Performed By: #### A JORGE, CMP, ADIFF, TROPHS, CBC, GFR, MDW, MG ####Jarred [address] [place], [place] [address] Urea nitrogen [Mass/Vol] 30 mg/dL High 7-18 [facility] ([place] Comment on above: Performed By: #### A JORGE, CMP, ADIFF, TROPHS, CBC, GFR, MDW, MG ####Jarred [address] [place], [place] [address] LABORATORYOrdered By: Ronald العراقي on [...] ng/L Male: 0-76 ng/L Testing performed on [employer] using a homogeneous sandwich chemiluminescent immunoassay based on [employer] technology. Albumin BCP dye [Mass/Vol] 3.4 G/dL [...] ng/L Male: 0-76 ng/L Testing performed on [employer] using a homogeneous sandwich chemiluminescent immunoassay based on [employer] technology. Urea nitrogen [Mass/Vol] 30 mg/dL High 7 - 18 mg/dL AO ADM SS Urea nitrogen/Creatinine [Mass ratio] 20 ratio Normal 7 - 27 ratio AO ADM SS WBC (Bld) [#/Vol] 10.6 103/mcL Normal 4.6 - 10.8 10^3/mcL AO Workflow SS MGon 10-01-2023 Magnesium [Mass/Vol] 1.8 mg/dL Normal 1.8-2.4 [facility] ([place]) Comment on above: Performed By: #### A JORGE, CMP, ADIFF, TROPHS, CBC, GFR, MDW, MG ####Jarred [address] [place], [place] [address] TROPHSon 10-01-2023 High Sensitivity Troponin I 9 ng/L Normal 0-76 [facility] ([place] Comment on above: Result Comment: High Sensitive Troponin I Reference Ranges: Female: 0-51 ng/L Male: 0-76 ng/L Testing performed on [employer] EXL using a homogeneous sandwich chemiluminescent immunoassay based on [employer] technology. Performed By: #### T [facility] #### Jarred [address] [place], [place] [address] High Sensitivity Troponin I 10 ng/L Normal 0-76 [facility] ([place] Comment on above: Result Comment: High Sensitive Troponin I Reference Ranges: Female: 0-51 ng/L Male: 0-76 ng/L Testing performed on [employer] using a homogeneous sandwich chemiluminescent immunoassay based on [employer] technology. Performed By: #### A JORGE, CMP, ADIFF, TROPHS, CBC, GFR, MDW, MG ####J[address] [place], [place] [address] UAon 10-01-2023 Color (U) Yellow Normal [facility] ([place] Comment on above: Performed By: #### U A ####J[address] [place], [place] [address] Glucose (U) [Mass/Vol] 500 mg/dL Abnormal Negative [facility] ([place]) Comment on above: Performed By: #### U A ####Jarred [address] [place], [place] [address] Ketones Ql (U) Negative Normal Negative [facility] ([place] Comment on above: Performed By: #### U A ####J[address] [place], [place] [address] UA Appear Clear Normal Clear [facility] ([place] Comment on above: Performed By: #### U A ####J[address] [place], [place] [address] UA Blood Negative Normal Negative [facility] ([place] Comment on above: Performed By: #### U A ####J[address] [place], [place] [address] UA Leuk Est Negative Normal Negative [facility] ([place] Comment on above: Performed By: #### U A ####J[address] [place], [place] [address] UA Nitrite Negative Normal Negative [facility] ([place] Comment on above: Performed By: #### U A ####Jar[address] [place], [place] [address] UA pH 5.5 Normal 5.0 - 8.0 [facility] ([place] Comment on above: Performed By: #### U A ####Jarred [address] [place], [place] [address] UA Protein Negative Normal Negative [facility] ([place] Comment on above: Performed By: #### U A ####Jarred [address] [place], [place] [address] UA Spec Grav 1.020 Normal 1.015-1.02 5 [facility] ([place] Comment on above: Performed By: #### U A ####J[address] [place], [place] [address] UA Specimen Type Void Normal [facility] ([place] Comment on above: Performed By: #### U A ####Jar[address] [place], [place] [address] UA Urobilinogen 0.2 E.U./dL Normal 0.2-1.0 [facility] ([place] Comment on above: Performed By: #### U A ####Jarred [address] [place], [place] [address] Urobilinogen (U) [Mass/Vol] Negative Normal Negative [facility] ([place] Comment on above: Performed By: #### U A ####Jarred [address] [place], [place] [address] XR CHEST 1 VIEWon 10-01-2023 XR CHEST [...] 10/01/2023 9:13:56 PM Ordering Provider: TITA Echevarria [facility] ([place]) Bilirubin, Directon 09-26-19 24 Bilirubin.direct [Mass/Vol] 0.12 mg/dL Normal 0.00-0.30 [facility] Comment on above: Order Comment: Y Performed By: #### L 506.0250, L3300.8000, L500.4100, L501.4700, L503.0105, L3130.0010 ####[facility] [address] [place], [address] CBC W/Diff, Automatedon 08-31 Absolute Lymph 1.81 X10 3/uL Normal 0.83-4.51 [facility] Comment on above: Performed By: #### L 100.0100, L500.4050, L501.5200, L501.9520, L506.0400 ####[facility] [address] [place], [address] Absolute Neut 5.8 X10 3/uL Normal 2.0-7.7 [facility] Comment on above: Performed By: #### L 100.0100, L500.4050, L501.5200, L501.9520, L506.0400 ####[facility] [address] [place], [address] Basophils/100 WBC (Bld) 0.6 % Normal 0-1 [facility] Comment on above: Performed By: #### L 100.0100, L500.4050, L501.5200, L501.9520, L506.0400 ####[facility] [address] [place], [address] Eosinophils/100 WBC (Bld) 3.1 % Normal 0-5 [facility] Comment on above: Performed By: #### L 100.0100, L500.4050, L501.5200, L501.9520, L506.0400 ####[facility] [address] [place], [address] Erythrocyte distribution width (RBC) [Ratio] 17.8 % High 11.6-14.6 [facility] Comment on above: Performed By: #### L 100.0100, L500.4050, L501.5200, L501.9520, L506.0400 ####[facility] [address] [place], [address] Hematocrit (Bld) [Volume fraction] 35.7 % Low 40-54 [facility] Comment on above: Performed By: #### L 100.0100, L500.4050, L501.5200, L501.9520, L506.0400 ####[facility] [address] [place], [address] Hemoglobin (Bld) [Mass/Vol] 10.9 g/dL Low 13.0-16.5 [facility] Comment on above: Performed By: #### L 100.0100, L500.4050, L501.5200, L501.9520, L506.0400 ####[facility] [address] [place], [address] IG% 0.300 Normal 0.0-0.9 [facility] Comment on above: Result Comment: IG% - Immature Granulocytes (promyelocytes, myelocytes andmetamyelocytes) > 1% indicates that a LEFT SHIFT is Present. Performed By: #### L 100.0100, L500.4050, L501.5200, L501.9520, L506.0400 ####[facility] [address] [place], [address] Lymphocytes/100 WBC (Bld) 20.9 % Normal 19-41 [facility] Comment on above: Performed By: #### L 100.0100, L500.4050, L501.5200, L501.9520, L506.0400 ####[facility] [address] [place], [address] MCH (RBC) [Entitic mass] 23.3 pg Low 27.0-32.0 [facility] Comment on above: Performed By: #### L 100.0100, L500.4050, L501.5200, L501.9520, L506.0400 ####[facility] [address] [place], [address] MCHC (RBC) [Mass/Vol] 30.5 g/dL Low 32-[address] [facility] Comment on above: Performed By: #### L 100.0100, L500.4050, L501.5200, L501.9520, L506.0400 ####[facility] [address] [place], [address] MCV (RBC) [Entitic vol] 76.4 fL Low 80-94 [facility] Comment on above: Performed By: #### L 100.0100, L500.4050, L501.5200, L501.9520, L506.0400 ####[facility] [address] [place], [address] Monocytes/100 WBC (Bld) 8.0 % Normal 0-10 [facility] Comment on above: Performed By: #### L 100.0100, L500.4050, L501.5200, L501.9520, L506.0400 ####[facility] [address] [place], [address] Neutrophils/100 WBC (Bld) 67.1 % Normal 47-70 [facility] Comment on above: Performed By: #### L 100.0100, L500.4050, L501.5200, L501.9520, L506.0400 ####[facility] [address] [place], [address] Nucleated RBC (Bld) [#/Vol] 0 10*3/uL Normal 0-5 [facility] Comment on above: Performed By: #### L 100.0100, L500.4050, L501.5200, L501.9520, L506.0400 ####[facility] [address] [place], [address] Platelet mean volume (Bld) [Entitic vol] 10.1 fL Normal 6.2-12.0 [facility] Comment on above: Performed By: #### L 100.0100, L500.4050, L501.5200, L501.9520, L506.0400 ####[facility] [address] [place], [address] Platelets (Bld) [#/Vol] 252 10*3/uL Normal 150-450 [facility] Comment on above: Performed By: #### L 100.0100, L500.4050, L501.5200, L501.9520, L506.0400 ####[facility] [address] [place], [address] RBC (Bld) [#/Vol] 4.67 10*6/uL Normal 4.6-6.2 [facility] Comment on above: Performed By: #### L 100.0100, L500.4050, L501.5200, L501.9520, L506.0400 ####[facility] [address] [place], [address] RDW SD 48.3 fl High 35.1-43.9 [facility] Comment on above: Performed By: #### L 100.0100, L500.4050, L501.5200, L501.9520, L506.0400 ####[facility] [address] [place], [address] WBC (Bld) [#/Vol] 8.6 10*3/uL Normal 4.4-11.0 [facility] Comment on above: Performed By: #### L 100.0100, L500.4050, L501.5200, L501.9520, L506.0400 ####[facility] [address] [place], [address] Comprehensive Metabolic Prof ilon 09-26-2023 Albumin [Mass/Vol] 3.4 g/dL Normal 3.2-5.0 [facility] Comment on above: Order Comment: DR RONALD WRAY GETS TSH LIVER AND T4F Performed By: #### L 100.0100, L500.4050, L501.5200, L501.9520, L506.0400 ####[facility] [address] [place], [address] Albumin/Globulin [Mass ratio] 0.7 {ratio} Low 0.9-2.4 [facility] Comment on above: Order Comment: DR RONALD WRAY GETS TSH LIVER AND T4F Performed By: #### L 100.0100, L500.4050, L501.5200, L501.9520, L506.0400 ####[facility] [address] [place], [address] ALK P 98 U/L Normal 45-117 [facility] Comment on above: Order Comment: DR RONALD WRAY GETS TSH LIVER AND T4F Performed By: #### L 100.0100, L500.4050, L501.5200, L501.9520, L506.0400 ####[facility] [address] [place], [address] ALT [Catalytic activity/Vol] 18 U/L Normal 16-61 [facility] Comment on above: Order Comment: DR RONALD WRAY GETS TSH LIVER AND T4F Performed By: #### L 100.0100, L500.4050, L501.5200, L501.9520, L506.0400 ####[facility] [address] [place], [address] AST [Catalytic activity/Vol] 18 U/L Normal 15-37 [facility] Comment on above: Order Comment: DR RONALD WRAY GETS TSH LIVER AND T4F Performed By: #### L 100.0100, L500.4050, L501.5200, L501.9520, L506.0400 ####[facility] [address] [place], [address] Bilirubin [Mass/Vol] 0.40 mg/dL Normal 0.20-1.00 [facility] Comment on above: Order Comment: DR RONALD WRAY GETS TSH LIVER AND T4F Result Comment: For patients on eltrombopag therapy, use of Dimension [place] TBIL is not recommended. Performed By: #### L 100.0100, L500.4050, L501.5200, L501.9520, L506.0400 ####[facility] [address] [place], [address] BUN/CRE 25.5 RATIO High 10-20 [facility] Comment on above: Order Comment: DR RONALD WRAY GETS TSH LIVER AND T4F Performed By: #### L 100.0100, L500.4050, L501.5200, L501.9520, L506.0400 ####[facility] [address] [place], [address] CA,Total 8.8 mg/dL Normal 8.5-10.1 [facility] Comment on above: Order Comment: DR RONALD WRAY GETS TSH LIVER AND T4F Performed By: #### L 100.0100, L500.4050, L501.5200, L501.9520, L506.0400 ####[facility] [address] [place], [address] Chloride [Moles/Vol] 105 mmol/L Normal 98-107 [facility] Comment on above: Order Comment: DR RONALD WRAY GETS TSH LIVER AND T4F Performed By: #### L 100.0100, L500.4050, L501.5200, L501.9520, L506.0400 ####[facility] [address] [place], [address] CO2 [Moles/Vol] 18.0 mmol/L Low 21.0-32.0 [facility] Comment on above: Order Comment: DR RONALD WRAY GETS TSH LIVER AND T4F Performed By: #### L 100.0100, L500.4050, L501.5200, L501.9520, L506.0400 ####[facility] [address] [place], [address] Creatinine [Mass/Vol] 1.37 mg/dL High 0.70-1.[address] [facility] Comment on above: Order Comment: DR RONALD WRAY GETS TSH LIVER AND T4F Result Comment: The validity of the calculated GFR GFRAA in patients over70 years has not been determined. Clinical correlation isessential. Performed By: #### L 100.0100, L500.4050, L501.5200, L501.9520, L506.0400 ####[facility] [address] [place], [address] EST GFR - AA 68 mL/min Normal >60 [facility] Comment on above: Order Comment: DR RONALD WRAY GETS TSH LIVER AND T4F Result Comment: Afri can [place] GFR Calc Performed By: #### L 100.0100, L500.4050, L501.5200, L501.9520, L506.0400 ####[facility] [address] [place], [address] GAP 12 Normal 5-15 [facility] Comment on above: Order Comment: DR RONALD WRAY GETS TSH LIVER AND T4F Performed By: #### L 100.0100, L500.4050, L501.5200, L501.9520, L506.0400 ####[facility] [address] [place], [address] GFR/1.73 sq M.predicted among non-blacks MDRD (S/P/Bld) [Vol rate/Area] 56 mL/min/{1.73_m2} Low >60 [facility] Comment on above: Order Comment: DR RONALD WRAY GETS TSH LIVER AND T4F Result Comment: Non- GFR Calc Performed By: #### L 100.0100, L500.4050, L501.5200, L501.9520, L506.0400 ####[facility] [address] [place], [address] Globulin (S) [Mass/Vol] 4.9 g/dL High 2.2-4.2 [facility] Comment on above: Order Comment: DR RONALD WRAY GETS TSH LIVER AND T4F Performed By: #### L 100.0100, L500.4050, L501.5200, L501.9520, L506.0400 ####[facility] [address] [place], [address] Glucose [Mass/Vol] 260 mg/dL High 74-106 [facility] Comment on above: Order Comment: DR RONALD WRAY GETS TSH LIVER AND T4F Result Comment: Gluc ose result greater than or equal to 200 mg/dLsuggests DIABETES MELLITUS per A.D.A. criteria. Performed By: #### L 100.0100, L500.4050, L501.5200, L501.9520, L506.0400 ####[facility] [address] [place], [address] Potassium [Moles/Vol] 4.2 mmol/L Normal 3.5-5.[address] [facility] Comment on above: Order Comment: DR RONALD WRAY GETS TSH LIVER AND T4F Performed By: #### L 100.0100, L500.4050, L501.5200, L501.9520, L506.0400 ####[facility] [address] [place], [address] Sodium [Moles/Vol] 135 mmol/L Low 136-145 [facility] Comment on above: Order Comment: DR RONALD WRAY GETS TSH LIVER AND T4F Performed By: #### L 100.0100, L500.4050, L501.5200, L501.9520, L506.0400 ####[facility] [address] [place], [address] T PROT 8.3 g/dL High 6.4-8.2 [facility] Comment on above: Order Comment: DR RONALD WRAY GETS TSH LIVER AND T4F Performed By: #### L 100.0100, L500.4050, L501.5200, L501.9520, L506.0400 ####[facility] [address] [place], [address] Urea nitrogen [Mass/Vol] 35 mg/dL High 7-18 [facility] Comment on above: Order Comment: DR RONALD WRAY GETS TSH LIVER AND T4F Performed By: #### L 100.0100, L500.4050, L501.5200, L501.9520, L506.0400 ####[facility] [address] [place], [address] Folates, (Folic Acid)on 08-31 FOLATES 4.90 ng/mL Normal 3.1-55.4 [facility] Comment on above: Order Comment: Y Result Comment: Slig ht Hemolysis, Result may be falsely increased. Performed By: #### L 506.0250, L3300.8000, L500.4100, L501.4700, L503.0105, L3130.0010 ####[facility] [address] [place], [address] Lipid Profileon 09-26-2023 Cholesterol [Mass/Vol] 156 mg/dL Normal 200 [facility] Comment on above: Order Comment: Y Result Comment: <200 mg/dL Desirable 200-240 mg/dL Borderline >240 mg/dL High Risk Performed By: #### L 506.0250, L3300.8000, L500.4100, L501.4700, L503.0105, L3130.0010 ####[facility] [address] [place], [address] Cholesterol in HDL [Mass/Vol] 31 mg/dL Low [facility] Comment on above: Order Comment: Y Result Comment: The drugs N-Acetylcysteine and Metamizole may falselydepress this assay. Reference Range HDL <40 mg/dL Low HDL Cholesterol HDL >or= 60 mg/dL High HDL Cholesterol Performed By: #### L 506.0250, L3300.8000, L500.4100, L501.4700, L503.0105, L3130.0010 ####[facility] [address] [place], [place], [id number] LDL TNP Normal 0-130 [facility] Comment on above: Order Comment: Y Performed By: #### L 506.0250, L3300.8000, L500.4100, L501.4700, L503.0105, L3130.0010 ####[facility] [address] [place], [address] Triglyceride [Mass/Vol] 418 mg/dL High [facility] Comment on above: Order Comment: Y [...] L 506.0250, L3300.8000, L500.4100, L501.4700, L503.0105, L3130.0010 ####[facility] [address] [place], [place], [phone] VLDL TNP Normal 5-40 [facility] Comment on above: Order Comment: Y Performed By: #### L 506.0250, L3300.8000, L500.4100, L501.4700, L503.0105, L3130.0010 ####[facility] [address] [place], [address] Magnesiumon 09-26-2023 Magnesium [Mass/Vol] 2.1 mg/dL Normal 1.6-2.6 [facility] Comment on above: Order Comment: DR RONALD WRAY GETS TSH LIVER AND T4F Performed By: #### L 100.0100, L500.4050, L501.5200, L501.9520, L506.0400 ####[facility] [address] [place], [address] T4 Free Directon 09-26-2023 T4 FREE DIRECT 1.22 ng/dL Normal 0.76-1.46 [facility] Comment on above: Order Comment: DR RONALD WRAY GETS TSH LIVER AND T4F Performed By: #### L 100.0100, L500.4050, L501.5200, L501.9520, L506.0400 ####[facility] [address] [place], [address] Thyroid Stim Hormone (TSH)on 09-26-2023 TSH 1.67 uIU/mL Normal 0.358-3.74 [facility] Comment on above: Order Comment: DR RONALD WRAY GETS TSH LIVER AND T4F Performed By: #### L 100.0100, L500.4050, L501.5200, L501.9520, L506.0400 ####[facility] [address] [place], [address] Vitamin B12on 09-26-2023 Cobalamin (Vitamin B12) [Mass/Vol] 331 pg/mL Normal 211-911 [facility] Comment on above: Performed By: #### L 506.0250, L3300.8000, L500.4100, L501.4700, L503.0105, L3130.0010 ####[facility] [address] [place], [address] Pulmonary Visit Reporton Pulmonary Visit Report Normal [facility] L/S Spine Min 4 Viewson 08-31 L/S Spine Min 4 Views Normal [facility] Thoracic Spine 3 Viewson Thoracic Spine 3 Views Normal [facility] Absolute lymphocyte countOrd ered By: Fany Diaz on 08-05-2023 Lymphocytes Auto (Unsp spec) [#/Vol] 2.02 10*3/uL 0.83-4.51 [facility] Automated lymphocyte count a s percentage of total leukocytesOrdered By: [facility] Diaz on 08-05-2023 Lymphocytes/100 WBC Auto (Unsp spec) 22.3 % 19-41 [facility] Basophil percentageOrdered B y: [facility] on 08-05-2023 Basophil percentage 3.9 mg/dL 2.5-4.9 [facility] Basophils/100 WBC (Bld) 0.9 % 0-1 [facility] Chloride [Moles/Vol] 108 mmol/L 98-107 [facility] Eosinophils/100 WBC (Bld) 3.2 % 0-5 [facility] Glucose [Mass/Vol] 158 mg/dL 74-106 [facility] Comment on above: Fasting Glucose resu lt greater than or equal to 126 mg/dL suggests DIABETES MELLITUS per A.D.A. criteria. Hemoglobin (Bld) [Mass/Vol] 11.6 g/dL 13.0-16.5 [facility] Monocytes/100 WBC (Bld) 9.6 % 0-10 [facility] Neutrophils (Bld) [#/Vol] 5.8 10*3/uL 2.0-7.7 [facility] Neutrophils/100 WBC (Bld) 63.6 % 47-70 [facility] Potassium [Moles/Vol] 4.1 mmol/L 3.5-5.[address] [facility] Sodium [Moles/Vol] 136 mmol/L 136-145 [facility] WBC (Bld) [#/Vol] 9.1 10*3/uL 4.4-11.0 [facility] Determination of erythrocyte mean corpuscular volume (MCV)Ordered By: Fany Diaz on 08-05-2023 MCV (RBC) [Entitic vol] 77.0 fL 80-94 [facility] Erythrocyte distribution wid th ratioOrdered By: Fany Diaz on 08-05-2023 Erythrocyte distribution width (RBC) [Ratio] 18.6 % 11.6-14.6 [facility] Erythrocyte distribution wid th standard deviationOrdered By: Fany Diaz on 08-05-2023 Erythrocyte distribution width (RBC) [Entitic vol] 51.4 fL 35.1-43.9 [facility] Hematocrit Auto (Bld) [Volum e fraction]Ordered By: Fany Diaz on 08-05-2023 Hematocrit (Bld) [Volume fraction] 38.1 % 40-54 [facility] Immature granulocytes/100 WB C Auto (Bld)Ordered By: Fany Diaz on 08-05-2023 Immature granulocytes/100 WBC (Bld) 0.400 % 0.0-0.9 [facility] Comment on above: IG% - Immature Granu locytes (promyelocytes, myelocytes and metamyelocytes) > 1% indicates that a LEFT SHIFT is Present. Iron measurement (mass/mass) Ordered By: Fany Diaz on 08-05-2023 Iron (Unsp spec) [Mass/Mass] 42 ug/dL 65-175 [facility] Laboratory - Chemistry and C hemistry - challengeOrdered By: Fany Diaz on 08-05-2023 CO2 [Moles/Vol] 20.0 mmol/L 21.0-32.0 [facility] Ferritin [Mass/Vol] 20 ng/mL 26-388 [facility] Urea nitrogen/Creatinine [Mass ratio] 25.5 mg/mg 10-20 [facility] Laboratory - Hematology and Cell countsOrdered By: Fany Diaz on 08-05-2023 MCH (RBC) [Entitic mass] 23.4 pg 27.0-32.0 [facility] MCHC (RBC) [Mass/Vol] 30.4 g/dL 32-[address] [facility] Nucleated RBC/100 WBC (Bld) [Ratio] 0 % 0-5 [facility] Platelet mean volume (Bld) [Entitic vol] 9.8 fL 6.2-12.0 [facility] Platelets (Bld) [#/Vol] 277 10*3/uL 150-450 [facility] No Panel InformationOrdered By: Fany Diaz on 08-05-2023 Estimated GFR (MDRD) Amer 88 mL/min >60 [facility] Comment on above: GFR Calc Estimated GFR (MDRD) Non-Af Amer 73 mL/min >60 [facility] Comment on above: Non- GFR Calc Parathyroid Hormone (Intact) 71.4 pg/mL 18.4-80.1 [facility] Total Iron Binding Capacity 383 ug/dL 250-450 [facility] RBC Auto (Bld) [#/Vol]Ordere d By: Fany Diaz on 08-05-2023 RBC (Bld) [#/Vol] 4.95 10*6/uL 4.6-6.2 [facility] Serum or plasma calcium grazyna urement (mass/volume)Ordered By: Fany Daiz on 08-05-2023 Calcium [Mass/Vol] 9.3 mg/dL 8.5-10.1 [facility] Serum or plasma creatinine m easurement (mass/volume)Ordered By: Fany Diaz on 08-05-2023 Creatinine [Mass/Vol] 1.10 mg/dL 0.70-1.[address] [facility] Comment on above: The validity of the calculated GFR & GFRAA in patients over 70 years has not been determined. Clinical correlation is essential. Serum or plasma iron saturat ion measurement (mass fraction)Ordered By: Fany Diaz on 08-05-2023 Iron saturation [Mass fraction] 11.0 % 15.0-55.0 [facility] Serum or plasma urea nitroge n measurement (mass/volume)Ordered By: Fany Diaz on 08-05-2023 Urea nitrogen [Mass/Vol] 28 mg/dL 7-18 [facility] Serum or plasma uric acid me asurement (mass/volume)Ordered By: Fany Diaz on 08-05-2023 Urate [Mass/Vol] 7.3 mg/dL 3.5-7.2 [facility] Comment on above: The drugs N-Acetylcy steine and Metamizole may falsely depress this assay. Thin prep Papanicolaou smear with manual screeningOrdered By: Fany Diaz on 08-05-2023 Protein (U) [Mass/Vol] 25.0 mg/dL 0.0-11.8 [facility] Thin prep Papanicolaou smear with manual screening 3.3 g/dL 3.2-5.0 [facility] Urine creatinine measurement (mass/volume)Ordered By: Fany Diaz on 08-05-2023 Creatinine (U) [Mass/Vol] 67.40 mg/dL NO RANGE EST. [facility] Urine protein/creatinine mas s ratioOrdered By: [facility] on 08-05-2023 Protein/Creatinine (U) [Mass ratio] 371 mg/g CRE 0-200 [facility] Basophil percentageOrdered B y: Francois Valiente on 06-06-2023 Creatinine [Mass/Vol] 1.4 mg/dL 0.70-1.[address] [facility] Laboratory - Chemistry and C hemistry - challengeOrdered By: Francois Valiente on 06-06-2023 GFR/1.73 sq M.predicted among non-blacks MDRD (S/P/Bld) [Vol rate/Area] 55.0000 mL/min/{1.73_m2} >60 [facility] Laboratory - Hematology and Cell countson 05-20-2023 HbA1c (Bld) [Mass fraction] 7.5 % 4.2-6.3 [facility] Basophil percentageOrdered B y: Oren Sky on 04-25-2023 Bilirubin [Mass/Vol] 0.50 mg/dL 0.20-1.00 [facility] Comment on above: For patients on eltr ombopag therapy, use of Dimension [place] TBIL is not recommended. Chloride [Moles/Vol] 108 mmol/L 98-107 [facility] Glucose [Mass/Vol] 157 mg/dL 74-106 [facility] Comment on above: Fasting Glucose resu lt greater than or equal to 126 mg/dL suggests DIABETES MELLITUS per A.D.A. criteria. Hemoglobin (Bld) [Mass/Vol] 11.5 g/dL 13.0-16.5 [facility] Potassium [Moles/Vol] 3.9 mmol/L 3.5-5.[address] [facility] Protein [Mass/Vol] 8.4 g/dL 6.4-8.2 [facility] Sodium [Moles/Vol] 135 mmol/L 136-145 [facility] WBC (Bld) [#/Vol] 10.8 10*3/uL 4.4-11.0 [facility] Determination of erythrocyte mean corpuscular volume (MCV)Ordered By: Oren Sky on 04-25-2023 MCV (RBC) [Entitic vol] 76.0 fL 80-94 [facility] Erythrocyte distribution wid th ratioOrdered By: Oren Sky on 04-25-2023 Erythrocyte distribution width (RBC) [Ratio] 18.6 % 11.6-14.6 [facility] Erythrocyte distribution wid th standard deviationOrdered By: Oren Sky on 04-25-2023 Erythrocyte distribution width (RBC) [Entitic vol] 48.6 fL 35.1-43.9 [facility] Hematocrit Auto (Bld) [Volum e fraction]Ordered By: Oren Sky on 04-25-2023 Hematocrit (Bld) [Volume fraction] 38.0 % 40-54 [facility] Laboratory - Chemistry and C hemistry - challengeOrdered By: Oren Sky on 04-25-2023 Albumin/Globulin [Mass ratio] 0.7 {ratio} 0.9-2.4 [facility] ALP [Catalytic activity/Vol] 102 U/L 45-117 [facility] ALT [Catalytic activity/Vol] 27 U/L 16-61 [facility] CO2 [Moles/Vol] 18.0 mmol/L 21.0-32.0 [facility] Globulin (S) [Mass/Vol] 4.9 g/dL 2.2-4.2 [facility] Natriuretic peptide B (Bld) [Mass/Vol] 13.4 pg/mL 0-100 [facility] Urea nitrogen/Creatinine [Mass ratio] 19.2 mg/mg 10-20 [facility] Laboratory - Hematology and Cell countsOrdered By: Oren Sky on 04-25-2023 MCH (RBC) [Entitic mass] 23.0 pg 27.0-32.0 [facility] MCHC (RBC) [Mass/Vol] 30.3 g/dL 32-[address] [facility] Platelets (Bld) [#/Vol] 289 10*3/uL 150-450 [facility] No Panel InformationOrdered By: Oren Sky on 04-25-2023 Estimated GFR (MDRD) Amer 73 mL/min >60 [facility] Comment on above: GFR Calc Estimated GFR (MDRD) Non-Af Amer 60 mL/min >60 [facility] Comment on above: Non- GFR Calc Platelet mean volume Deon-Ec ker (Bld) [Entitic vol]Ordered By: Oren Sky on 04-25-2023 Platelet mean volume (Bld) [Entitic vol] 9.7 fL 6.2-12.0 [facility] RBC Auto (Bld) [#/Vol]Ordere d By: Oren Sky on 04-25-2023 RBC (Bld) [#/Vol] 5.00 10*6/uL 4.6-6.2 [facility] Serum or plasma calcium grazyna urement (mass/volume)Ordered By: Oren Sky on 04-25-2023 Calcium [Mass/Vol] 9.2 mg/dL 8.5-10.1 [facility] Serum or plasma creatinine m easurement (mass/volume)Ordered By: Oren Sky on 04-25-2023 Creatinine [Mass/Vol] 1.30 mg/dL 0.70-1.[address] [facility] Comment on above: The validity of the calculated GFR & GFRAA in patients over 70 years has not been determined. Clinical correlation is essential. Serum or plasma thyroid stim ulating hormone (TSH) measurement (units/volume)Ordered By: Oren Sky on 04-25-2023 TSH Qn 1.74 uIU/mL 0.358-3.74 [facility] Serum or plasma urea nitroge n measurement (mass/volume)Ordered By: Oren Sky on 04-25-2023 Urea nitrogen [Mass/Vol] 25 mg/dL 7-18 [facility] Thin prep Papanicolaou smear with manual screeningOrdered By: Oren Sky on 04-25-2023 Thin prep Papanicolaou smear with manual screening 3.5 g/dL 3.2-5.0 [facility] Thin prep Papanicolaou smear with manual screening 17 U/L 15-37 [facility] Thin prep Papanicolaou smear with manual screening 9 5-15 [facility] Laboratory - Chemistry and C hemistry - challengeOrdered By: Coreen Gerardo on 02-26-2023 Free T4 [Mass/Vol] 0.85 ng/dL 0.76-1.46 [facility] No Panel InformationOrdered By: Coreen Gerardo on 02-26-2023 Thyroid Stimulating Hormone (TSH) 8.76 uIU/mL 0.358-3.74 [facility] Basophil percentageOrdered B y: Fany Diaz on 01-15-2023 Basophil percentage 2.8 mg/dL 2.5-4.9 [facility] Chloride [Moles/Vol] 107 mmol/L 98-107 [facility] Glucose [Mass/Vol] 74 mg/dL 74-106 [facility] Potassium [Moles/Vol] 3.2 mmol/L 3.5-5.[address] [facility] Sodium [Moles/Vol] 139 mmol/L 136-145 [facility] Laboratory - Chemistry and C hemistry - challengeOrdered By: Fany Diaz on 01-15-2023 CO2 [Moles/Vol] 24.0 mmol/L 21.0-32.0 [facility] Urea nitrogen/Creatinine [Mass ratio] 10.2 mg/mg 10-20 [facility] No Panel InformationOrdered By: Fany Diaz on 01-15-2023 Estimated GFR (MDRD) Amer 74 mL/min >60 [facility] Comment on above: GFR Calc Estimated GFR (MDRD) Non-Af Amer 61 mL/min >60 [facility] Comment on above: Non- GFR Calc Serum or plasma albumin grazyna urement (mass/volume)Ordered By: Fany Diaz on 01-15-2023 Albumin [Mass/Vol] 3.2 g/dL 3.2-5.0 [facility] Serum or plasma calcium grazyna urement (mass/volume)Ordered By: Fany Diaz on 01-15-2023 Calcium [Mass/Vol] 8.7 mg/dL 8.5-10.1 [facility] Serum or plasma creatinine m easurement (mass/volume)Ordered By: [facility] on 01-15-2023 Creatinine [Mass/Vol] 1.28 mg/dL 0.70-1.[address] [facility] Comment on above: The validity of the calculated GFR & GFRAA in patients over 70 years has not been determined. Clinical correlation is essential. Serum or plasma urea nitroge n measurement (mass/volume)Ordered By: [facility] on 01-15-2023 Urea nitrogen [Mass/Vol] 13 mg/dL 7-18 [facility] Urine creatinine measurement (mass/volume)Ordered By: [facility] on 01-15-2023 Creatinine (U) [Mass/Vol] 73.90 mg/dL NO RANGE EST. [facility] Urine protein measurement (m ass/volume)Ordered By: [facility] on 01-15-2023 Protein (U) [Mass/Vol] 16.2 mg/dL 0.0-11.8 [facility] Urine protein/creatinine mas s ratioOrdered By: [facility] on 01-15-2023 Protein/Creatinine (U) [Mass ratio] 219 mg/g CRE 0-200 [facility] Absolute lymphocyte countOrd ered By: [facility] on 12-31-2022 Lymphocytes Auto (Unsp spec) [#/Vol] 1.76 10*3/uL 0.83-4.51 [facility] Basophil percentageOrdered B y: [facility] on 12-31-2022 Basophil percentage 3.7 mg/dL 2.5-4.9 [facility] Basophils/100 WBC (Bld) 0.6 % 0-1 [facility] Chloride [Moles/Vol] 107 mmol/L 98-107 [facility] Eosinophils/100 WBC (Bld) 2.3 % 0-5 [facility] Glucose [Mass/Vol] 117 mg/dL 74-106 [facility] Comment on above: Fasting Glucose resu lt from 100 to 125 mg/dL suggests IMPAIRED HOMEOSTASIS per A.D.A. criteria. Neutrophils (Bld) [#/Vol] 7.8 10*3/uL 2.0-7.7 [facility] Neutrophils/100 WBC (Bld) 72.0 % 47-70 [facility] Potassium [Moles/Vol] 3.8 mmol/L 3.5-5.[address] [facility] Sodium [Moles/Vol] 138 mmol/L 136-145 [facility] WBC (Bld) [#/Vol] 10.9 10*3/uL 4.4-11.0 [facility] Bilirubin Test strip Ql (U)O rdered By: Fany Diaz on 12-31-2022 Bilirubin Ql (U) Negative Negative [facility] Blood erythrocytes count (nu mber/volume)Ordered By: Fany Diaz on 12-31-2022 RBC (Bld) [#/Vol] 4.20 10*6/uL 4.6-6.2 [facility] Blood hemoglobin measurement (mass/volume)Ordered By: Fany Diaz on 12-31-2022 Hemoglobin (Bld) [Mass/Vol] 10.8 g/dL 13.0-16.5 [facility] Blood lymphocytes/100 leukoc ytesOrdered By: Fany Diaz on 12-31-2022 Lymphocytes/100 WBC (Bld) 16.1 % 19-41 [facility] Blood monocytes/100 leukocyt esOrdered By: Fany Diaz on 12-31-2022 Monocytes/100 WBC (Bld) 8.5 % 0-10 [facility] Blood platelet mean volumeOr dered By: Fany Diaz on 12-31-2022 Platelet mean volume (Bld) [Entitic vol] 10.1 fL 6.2-12.0 [facility] Determination of erythrocyte mean corpuscular volume (MCV)Ordered By: Fany Diaz on 12-31-2022 MCV (RBC) [Entitic vol] 82.4 fL 80-94 [facility] Hematocrit Auto (Bld) [Volum e fraction]Ordered By: Fany Diaz on 12-31-2022 Hematocrit (Bld) [Volume fraction] 34.6 % 40-54 [facility] Iron measurement (mass/mass) Ordered By: Fany Diaz on 12-31-2022 Iron (Unsp spec) [Mass/Mass] 37 ug/dL 65-175 [facility] Ketones Test strip Ql (U)Ord ered By: Fany Diaz on 12-31-2022 Ketones Ql (U) Negative Negative [facility] Laboratory - Chemistry and C hemistry - challengeOrdered By: Fany Diaz on 12-31-2022 Albumin [Mass/Vol] 3.4 g/dL 2.9-4.4 [facility] CO2 [Moles/Vol] 22.0 mmol/L 21.0-32.0 [facility] Urea nitrogen/Creatinine [Mass ratio] 21.4 mg/mg 10-20 [facility] Laboratory - Hematology and Cell countsOrdered By: Fany Diaz on 12-31-2022 Erythrocyte distribution width (RBC) [Entitic vol] 50.4 fL 35.1-43.9 [facility] Erythrocyte distribution width (RBC) [Ratio] 16.8 % 11.6-14.6 [facility] Immature granulocytes/100 WBC (Bld) 0.500 % 0.0-0.9 [facility] Comment on above: IG% - Immature Granu locytes (promyelocytes, myelocytes and metamyelocytes) > 1% indicates that a LEFT SHIFT is Present. MCH (RBC) [Entitic mass] 25.7 pg 27.0-32.0 [facility] Nucleated RBC/100 WBC (Bld) [Ratio] 0 % 0-5 [facility] MCHC Auto (RBC) [Mass/Vol]Or dered By: Fany Diaz on 12-31-2022 MCHC (RBC) [Mass/Vol] 31.2 g/dL 32-[address] [facility] Nitrite Test strip Ql (U)Ord ered By: Fany Diaz on 12-31-2022 Nitrite Ql (U) Negative Negative [facility] No Panel InformationOrdered By: Fany Diaz on 12-31-2022 Addendum Document Comment . [facility] Comment on above: The SPE pattern refl ects a polyclonal increase in gammaglobulin. Hypergammaglobulinemia is found in a wide varietyof infectious, non-infectious, and autoimmune diseasestates. Evidence of monoclonal protein is not apparent. [id number] 0.2 g/dL 0.0-0.4 [facility] [id number]-3-[id number] 0.9 g/dL 0.4-1.0 [facility] Estimated GFR (MDRD) Amer 75 mL/min >60 [facility] Comment on above: GFR Calc Estimated GFR (MDRD) Non-Af Amer 62 mL/min >60 [facility] Comment on above: Non- GFR Calc Gamma Globulins 1.9 g/dL 0.4-1.8 [facility] Total Iron Binding Capacity 355 ug/dL 250-450 [facility] Vitamin D 25-Hydroxy 33.7 ng/mL [facility] Comment on above: Vitamin D 25(OH) Sta tus Range Deficiency <20 ng/mL (50nmol/L) Insufficiency 20 - 30 ng/mL (50 - 75 nmol/L) Sufficiency 30 - 100 ng/mL (75 - 250 nmol/L) Toxicity >100 ng/mL (>250 nmol/L) Platelets bldOrdered By: Roxi Diaz on 12-31-2022 Platelets (Bld) [#/Vol] 265 10*3/uL 150-450 [facility] Protein Fractions Elph [Inte rp]Ordered By: Fany Diaz on 12-31-2022 Protein Fractions [Interp] Comment . [facility] Comment on above: Protein electrophore sis scan will follow via computer,mail, or improvement rn delivery. Protein Test strip Ql (U)Ord ered By: Fany Diaz on 12-31-2022 Protein Ql (U) 15 mg/dl Negative [facility] Serum albumin to globulin ra balaji by protein electrophoresisOrdered By: Fany Diaz on 12-31-2022 Albumin/Globulin Elph [Mass ratio] 0.8 0.7-1.7 [facility] Serum globulin measurement ( mass/volume)Ordered By: Fany Diaz on 12-31-2022 Globulin (S) [Mass/Vol] 4.1 g/dL 2.2-3.9 [facility] Serum or plasma albumin grazyna urement (mass/volume)Ordered By: Fany Diaz on 12-31-2022 Albumin [Mass/Vol] 3.3 g/dL 3.2-5.0 [facility] Serum or plasma beta globuli n measurement by electrophoresis (mass/volume)Ordered By: Fany Diaz on 12-31-2022 Beta globulin Elph [Mass/Vol] 1.1 g/dL 0.7-1.3 [facility] Serum or plasma calcium grazyna urement (mass/volume)Ordered By: Fany Diaz on 12-31-2022 Calcium [Mass/Vol] 8.7 mg/dL 8.5-10.1 [facility] Serum or plasma complement C 3 measurement (mass/volume)Ordered By: Fany Diaz on 12-31-2022 Complement C3 [Mass/Vol] 159 mg/dL 82-167 [facility] Comment on above: Performed at: [place] [id number] Director: Chance Morales PhD, Phone: [phone] Serum or plasma complement C 4 measurement (mass/volume)Ordered By: Fany Diaz on 12-31-2022 Complement C4 [Mass/Vol] 26 mg/dL 12-38 [facility] Serum or plasma creatinine m easurement (mass/volume)Ordered By: Fany Diaz on 12-31-2022 Creatinine [Mass/Vol] 1.26 mg/dL 0.70-1.[address] [facility] Comment on above: The validity of the calculated GFR & GFRAA in patients over 70 years has not been determined. Clinical correlation is essential. Serum or plasma ferritin elizabeth surement (mass/volume)Ordered By: Fany Diaz on 12-31-2022 Ferritin [Mass/Vol] 37 ng/mL 26-388 [facility] Serum or plasma iron saturat ion measurement (mass fraction)Ordered By: Fany Diaz on 12-31-2022 Iron saturation [Mass fraction] 10.4 % 15.0-55.0 [facility] Serum or plasma urea nitroge n measurement (mass/volume)Ordered By: Fany Diaz on 12-31-2022 Urea nitrogen [Mass/Vol] 27 mg/dL 7-18 [facility] Serum or plasma uric acid me asurement (mass/volume)Ordered By: Fany Diaz on 12-31-2022 Urate [Mass/Vol] 8.2 mg/dL 3.5-7.2 [facility] Comment on above: The drugs N-Acetylcy steine and Metamizole may falsely depress this assay. Thin prep Papanicolaou smear with manual screeningOrdered By: Fany Diaz on 12-31-2022 Thin prep Papanicolaou smear with manual screening See comment [facility] Comment on above: NOT OBSERVED Total protein bloodOrdered B y: Fany Diaz on 12-31-2022 Protein [Mass/Vol] 7.5 g/dL 6.0-8.5 [facility] Urine blood detectionOrdered By: Fany Diaz on 12-31-2022 RBC Ql (U) Negative Negative [facility] Urine clarityOrdered By: Roxi Diaz on 12-31-2022 Clarity (U) Sl. Cloudy Clear [facility] Urine color determinationOrd ered By: Fany Diaz on 12-31-2022 Color (U) Yellow Yellow [facility] Urine creatinine measurement (mass/volume)Ordered By: Fany Diaz on 12-31-2022 Creatinine (U) [Mass/Vol] 95.50 mg/dL NO RANGE EST. [facility] Urine glucose detectionOrder ed By: Fany Diaz on 12-31-2022 Glucose Ql (U) Normal mg/dl Normal [facility] Urine leukocyte esterase det ection by dipstickOrdered By: Fany Diaz on 12-31-2022 Leukocyte esterase Test strip Ql (U) Negative Negative [facility] Urine pHOrdered By: Fany Diaz on 12-31-2022 pH (U) 5.0 [pH] 5.0 - 8.0 [facility] Urine protein measurement (m ass/volume)Ordered By: Fany Diaz on 12-31-2022 Protein (U) [Mass/Vol] 15.7 mg/dL 0.0-11.8 [facility] Urine specific gravity measu rementOrdered By: Fany Diaz on 12-31-2022 Specific gravity (U) [Rel density] 1.015 1.002-1.03 0 [facility] Urobilinogen Auto test strip Ql (U)Ordered By: Fany Diaz on 12-31-2022 Urobilinogen Ql (U) Normal mg/dl Normal [facility] Laboratory - Hematology and Cell countson 12-10-2022 HbA1c (Bld) [Mass fraction] 7.1 % 4.2-6.3 [facility] Laboratory - Chemistry and C hemistry - challengeOrdered By: Brandt Winter on 11-07-2022 Natriuretic peptide B (Bld) [Mass/Vol] 9.7 pg/mL 0-100 [facility] T4 [Mass/Vol] 10.9 ug/dL 4.5-12.1 [facility] No Panel InformationOrdered By: Brandt Winter on 11-07-2022 Thyroid Stimulating Hormone (TSH) 0.27 uIU/mL 0.358-3.74 [facility] Total Triiodothyronine 1.16 ng/mL 0.6-1.81 [facility] Absolute lymphocyte countOrd ered By: Brandt Winter on 10-31-2022 Lymphocytes Auto (Unsp spec) [#/Vol] 1.83 10*3/uL 0.83-4.51 [facility] Basophil percentageOrdered B y: Brandt Winter on 10-31-2022 Basophils/100 WBC (Bld) 0.6 % 0-1 [facility] Bilirubin [Mass/Vol] 0.60 mg/dL 0.20-1.00 [facility] Comment on above: For patients on eltr ombopag therapy, use of Dimension [place] TBIL is not recommended. Chloride [Moles/Vol] 107 mmol/L 98-107 [facility] Eosinophils/100 WBC (Bld) 3.8 % 0-5 [facility] Glucose [Mass/Vol] 119 mg/dL 74-106 [facility] Comment on above: Fasting Glucose resu lt from 100 to 125 mg/dL suggests IMPAIRED HOMEOSTASIS per A.D.A. criteria. Neutrophils (Bld) [#/Vol] 4.7 10*3/uL 2.0-7.7 [facility] Neutrophils/100 WBC (Bld) 59.2 % 47-70 [facility] Potassium [Moles/Vol] 4.9 mmol/L 3.5-5.[address] [facility] Protein [Mass/Vol] 8.9 g/dL 6.4-8.2 [facility] Sodium [Moles/Vol] 135 mmol/L 136-145 [facility] WBC (Bld) [#/Vol] 7.9 10*3/uL 4.4-11.0 [facility] Blood erythrocytes count (nu mber/volume)Ordered By: Brandt Winter on 10-31-2022 RBC (Bld) [#/Vol] 3.94 10*6/uL 4.6-6.2 [facility] Blood hemoglobin measurement (mass/volume)Ordered By: Brandt Winter on 10-31-2022 Hemoglobin (Bld) [Mass/Vol] 10.4 g/dL 13.0-16.5 [facility] Blood lymphocytes/100 leukoc ytesOrdered By: Brandt Winter on 10-31-2022 Lymphocytes/100 WBC (Bld) 23.2 % 19-41 [facility] Blood monocytes/100 leukocyt esOrdered By: Brandt Winter on 10-31-2022 Monocytes/100 WBC (Bld) 12.7 % 0-10 [facility] Blood platelet mean volumeOr dered By: Brandt Winter on 10-31-2022 Platelet mean volume (Bld) [Entitic vol] 10.2 fL 6.2-12.0 [facility] Determination of erythrocyte mean corpuscular volume (MCV)Ordered By: Brandt Winter on 10-31-2022 MCV (RBC) [Entitic vol] 81.0 fL 80-94 [facility] Hematocrit Auto (Bld) [Volum e fraction]Ordered By: Brandt Winter on 10-31-2022 Hematocrit (Bld) [Volume fraction] 31.9 % 40-54 [facility] Iron measurement (mass/mass) Ordered By: Brandt Winter on 10-31-2022 Iron (Unsp spec) [Mass/Mass] 35 ug/dL 65-175 [facility] Laboratory - Chemistry and C hemistry - challengeOrdered By: Brandt Winter on 10-31-2022 ALP [Catalytic activity/Vol] 103 U/L 45-117 [facility] ALT [Catalytic activity/Vol] 24 U/L 16-61 [facility] CO2 [Moles/Vol] 19.0 mmol/L 21.0-32.0 [facility] Globulin (S) [Mass/Vol] 5.8 g/dL 2.2-4.2 [facility] Urea nitrogen/Creatinine [Mass ratio] 27.0 mg/mg 10-20 [facility] Laboratory - Hematology and Cell countsOrdered By: Brandt Winter on 10-31-2022 Erythrocyte distribution width (RBC) [Entitic vol] 49.3 fL 35.1-43.9 [facility] Erythrocyte distribution width (RBC) [Ratio] 16.7 % 11.6-14.6 [facility] Immature granulocytes/100 WBC (Bld) 0.500 % 0.0-0.9 [facility] Comment on above: IG% - Immature Granu locytes (promyelocytes, myelocytes and metamyelocytes) > 1% indicates that a LEFT SHIFT is Present. MCH (RBC) [Entitic mass] 26.4 pg 27.0-32.0 [facility] Nucleated RBC/100 WBC (Bld) [Ratio] 0 % 0-5 [facility] MCHC Auto (RBC) [Mass/Vol]Or dered By: Brandt Winter on 10-31-2022 MCHC (RBC) [Mass/Vol] 32.6 g/dL 32-[address] [facility] No Panel InformationOrdered By: Brandt Winter on 10-31-2022 Estimated GFR (MDRD) Amer 61 mL/min >60 [facility] Comment on above: GFR Calc Estimated GFR (MDRD) Non-Af Amer 50 mL/min >60 [facility] Comment on above: Non- GFR Calc Thyroid Stimulating Hormone (TSH) 0.23 uIU/mL 0.358-3.74 [facility] Total Iron Binding Capacity 274 ug/dL 250-450 [facility] Vitamin D 25-Hydroxy 12.1 ng/mL [facility] Comment on above: Vitamin D 25(OH) Sta tus Range Deficiency <20 ng/mL (50nmol/L) Insufficiency 20 - 30 ng/mL (50 - 75 nmol/L) Sufficiency 30 - 100 ng/mL (75 - 250 nmol/L) Toxicity >100 ng/mL (>250 nmol/L) Platelets bldOrdered By: Ximena Winter on 10-31-2022 Platelets (Bld) [#/Vol] 253 10*3/uL 150-450 [facility] Serum or plasma albumin grazyna urement (mass/volume)Ordered By: Brandt Winter on 10-31-2022 Albumin [Mass/Vol] 3.1 g/dL 3.2-5.0 [facility] Serum or plasma albumin/glob ulin mass ratioOrdered By: Brandt Winter on 10-31-2022 Albumin/Globulin [Mass ratio] 0.5 {ratio} 0.9-2.4 [facility] Serum or plasma calcium grazyna urement (mass/volume)Ordered By: Brandt Winter on 10-31-2022 Calcium [Mass/Vol] 9.1 mg/dL 8.5-10.1 [facility] Serum or plasma creatinine m easurement (mass/volume)Ordered By: Brandt Winter on 10-31-2022 Creatinine [Mass/Vol] 1.52 mg/dL 0.70-1.[address] [facility] Comment on above: The validity of the calculated GFR & GFRAA in patients over 70 years has not been determined. Clinical correlation is essential. Serum or plasma ferritin elizabeth surement (mass/volume)Ordered By: Brandt Winter on 10-31-2022 Ferritin [Mass/Vol] 158 ng/mL 26-388 [facility] Serum or plasma iron saturat ion measurement (mass fraction)Ordered By: Brandt Winter on 10-31-2022 Iron saturation [Mass fraction] 12.8 % 15.0-55.0 [facility] Serum or plasma urea nitroge n measurement (mass/volume)Ordered By: Brandt Winter on 10-31-2022 Urea nitrogen [Mass/Vol] 41 mg/dL 7-18 [facility] Thin prep Papanicolaou smear with manual screeningOrdered By: Brandt Winter on 10-31-2022 Thin prep Papanicolaou smear with manual screening 22 U/L 15-37 [facility] Thin prep Papanicolaou smear with manual screening 9 5-15 [facility] Glucose Glucometer (BldC) [M ass/Vol]Ordered By: Dr. Ospina on 08-03-2022 Glucose [Mass/Vol] 343 mg/dL 74-106 [facility] Comment on above: MANAGEMENT OF PATIEN T CARE PER NURSING PROTOCOL Absolute lymphocyte countOrd ered By: Dr. Bell on 08-02-2022 Lymphocytes Auto (Unsp spec) [#/Vol] 1.27 10*3/uL 0.83-4.51 [facility] Basophil percentageOrdered B y: Dr. Bell on 08-02-2022 Basophils/100 WBC (Bld) 0.8 % 0-1 [facility] Bilirubin [Mass/Vol] 0.50 mg/dL 0.20-1.00 [facility] Comment on above: For patients on eltr ombopag therapy, use of Dimension [place] TBIL is not recommended. Chloride [Moles/Vol] 104 mmol/L 98-107 [facility] Cholesterol [Mass/Vol] 133 mg/dL <200 [facility] Comment on above: <200 mg/dL Desirable 200-240 mg/dL Borderline >240 mg/dL High Risk Eosinophils/100 WBC (Bld) 3.1 % 0-5 [facility] Glucose [Mass/Vol] 280 mg/dL 74-106 [facility] Comment on above: Glucose result great er than or equal to 200 mg/dLsuggests DIABETES MELLITUS per A.D.A. criteria. Neutrophils (Bld) [#/Vol] 3.5 10*3/uL 2.0-7.7 [facility] Neutrophils/100 WBC (Bld) 59.7 % 47-70 [facility] Potassium [Moles/Vol] 4.0 mmol/L 3.5-5.[address] [facility] Protein [Mass/Vol] 7.6 g/dL 6.4-8.2 [facility] Sodium [Moles/Vol] 135 mmol/L 136-145 [facility] Triglyceride [Mass/Vol] 300 mg/dL <199 [facility] Comment on above: The drugs N-Acetylcy steine and Metamizole may falsely depress this assay.Serum Triglycerides Reference Interval Normal <150 mg/dL Borderline high 150 - 199 mg/dL High 200 - 499 mg/dL Very High > or = 500 mg/dL WBC (Bld) [#/Vol] 5.9 10*3/uL 4.4-11.0 [facility] Blood erythrocytes count (nu mber/volume)Ordered By: Dr. Bell on 08-02-2022 RBC (Bld) [#/Vol] 4.27 10*6/uL 4.6-6.2 [facility] Blood hemoglobin measurement (mass/volume)Ordered By: Dr. Bell on 08-02-2022 Hemoglobin (Bld) [Mass/Vol] 10.7 g/dL 13.0-16.5 [facility] Blood lymphocytes/100 leukoc ytesOrdered By: Dr. Bell on 08-02-2022 Lymphocytes/100 WBC (Bld) 21.5 % 19-41 [facility] Blood monocytes/100 leukocyt esOrdered By: Dr. Bell on 08-02-2022 Monocytes/100 WBC (Bld) 14.4 % 0-10 [facility] Blood platelet mean volumeOr dered By: Dr. Bell on 08-02-2022 Platelet mean volume (Bld) [Entitic vol] 9.9 fL 6.2-12.0 [facility] Determination of erythrocyte mean corpuscular volume (MCV)Ordered By: Dr. Bell on 08-02-2022 MCV (RBC) [Entitic vol] 78.9 fL 80-94 [facility] Hematocrit Auto (Bld) [Volum e fraction]Ordered By: Dr. Bell on 08-02-2022 Hematocrit (Bld) [Volume fraction] 33.7 % 40-54 [facility] Laboratory - Chemistry and C hemistry - challengeOrdered By: Dr. Bell on 08-02-2022 ALP [Catalytic activity/Vol] 118 U/L 45-117 [facility] ALT [Catalytic activity/Vol] 25 U/L 16-61 [facility] CO2 [Moles/Vol] 20.0 mmol/L 21.0-32.0 [facility] Globulin (S) [Mass/Vol] 4.4 g/dL 2.2-4.2 [facility] Urea nitrogen/Creatinine [Mass ratio] 21.7 mg/mg 10-20 [facility] Laboratory - Hematology and Cell countsOrdered By: Dr. Bell on 08-02-2022 Erythrocyte distribution width (RBC) [Entitic vol] 46.5 fL 35.1-43.9 [facility] Erythrocyte distribution width (RBC) [Ratio] 16.4 % 11.6-14.6 [facility] Immature granulocytes/100 WBC (Bld) 0.500 % 0.0-0.9 [facility] Comment on above: IG% - Immature Granu locytes (promyelocytes, myelocytes and metamyelocytes) > 1% indicates that a LEFT SHIFT is Present. MCH (RBC) [Entitic mass] 25.1 pg 27.0-32.0 [facility] Nucleated RBC/100 WBC (Bld) [Ratio] 0 % 0-5 [facility] MCHC Auto (RBC) [Mass/Vol]Or dered By: Dr. Bell on 08-02-2022 MCHC (RBC) [Mass/Vol] 31.8 g/dL 32-[address] [facility] No Panel InformationOrdered By: Dr. Bell on 08-02-2022 Estimated Creatinine Clearance Calc 83.01 ml/min [facility] Estimated GFR (MDRD) Amer 102 mL/min >60 [facility] Comment on above: GFR Calc Estimated GFR (MDRD) Non-Af Amer 84 mL/min >60 [facility] Comment on above: Non- GFR Calc Thyroid Stimulating Hormone (TSH) 1.36 uIU/mL 0.358-3.74 [facility] Platelets bldOrdered By: Dr. Bell on 08-02-2022 Platelets (Bld) [#/Vol] 193 10*3/uL 150-450 [facility] Serum or plasma albumin grazyna urement (mass/volume)Ordered By: Dr. Bell on 08-02-2022 Albumin [Mass/Vol] 3.2 g/dL 3.2-5.0 [facility] Serum or plasma albumin/glob ulin mass ratioOrdered By: Dr. Bell on 08-02-2022 Albumin/Globulin [Mass ratio] 0.7 {ratio} 0.9-2.4 [facility] Serum or plasma calcium grazyna urement (mass/volume)Ordered By: Dr. Bell on 08-02-2022 Calcium [Mass/Vol] 9.0 mg/dL 8.5-10.1 [facility] Serum or plasma cholesterol in HDL measurement (mass/volume)Ordered By: Dr. Bell on 08-02-2022 Cholesterol in HDL [Mass/Vol] 33 mg/dL >40 [facility] Comment on above: The drugs N-Acetylcy steine and Metamizole may falsely depress this assay. Reference Range HDL <40 mg/dL Low HDL Cholesterol HDL >or= 60 mg/dL High HDL Cholesterol Serum or plasma cholesterol in VLDL measurement (mass/volume)Ordered By: Dr. Bell on 08-02-2022 Cholesterol in VLDL [Mass/Vol] 60 mg/dL 5-40 [facility] Serum or plasma creatinine m easurement (mass/volume)Ordered By: Dr. Bell on 08-02-2022 Creatinine [Mass/Vol] 0.97 mg/dL 0.70-1.[address] [facility] Comment on above: The validity of the calculated GFR & GFRAA in patients over 70 years has not been determined. Clinical correlation is essential. Serum or plasma low density lipoprotein (LDL) cholesterol measurement (mass/volume)Ordered By: Dr. Bell on 08-02-2022 Cholesterol in LDL [Mass/Vol] 40 mg/dL 0-130 [facility] Serum or plasma urea nitroge n measurement (mass/volume)Ordered By: Dr. Bell on 08-02-2022 Urea nitrogen [Mass/Vol] 21 mg/dL 7-18 [facility] Thin prep Papanicolaou smear with manual screeningOrdered By: Dr. Bell on 08-02-2022 Thin prep Papanicolaou smear with manual screening 18 U/L 15-37 [facility] Thin prep Papanicolaou smear with manual screening 11 5-15 [facility] Whole blood hemoglobin A1c/t otal hemoglobin ratio (mass fraction)Ordered By: Dr. Bell on 08-02-2022 HbA1c (Bld) [Mass fraction] 9.6 % 3.8-5.6 [facility] Comment on above: Normal < 5.7 % Predi abetic 5.7 - 6.4 % Diabetic >or= 6.5 % Please note range changes. INR in Blood by Coagulation assayOrdered By: ED PROVIDER on 08-01-2022 INR Coag (Bld) [Relative time] 1.1 {INR} [facility] Laboratory - Chemistry and C hemistry - challengeOrdered By: Dr. Bell on 08-01-2022 Magnesium [Mass/Vol] 1.7 mg/dL 1.6-2.6 [facility] Laboratory - CoagulationOrde red By: ED PROVIDER on 08-01-2022 aPTT Coag (Bld) [Time] 28.7 s 24.1-36.2 [facility] PT Coag (PPP) [Time] 13.8 s 11.7-14.9 [facility] No Panel InformationOrdered By: Dr. Hill on 08-01-2022 Troponin I High Sensitivity 9 pg/mL 3.0-78.0 [facility] Comment on above: Please Note: New Karly t Units and Gender Specific Reference Ranges. For more information see Policy Stat Procedure [place] High Sensitivity Troponin (TNIH) and attachments. Basophil percentageOrdered B y: Oren Sky on 06-26-2022 Chloride [Moles/Vol] 104 mmol/L 98-107 [facility] Glucose [Mass/Vol] 224 mg/dL 74-106 [facility] Comment on above: Glucose result great er than or equal to 200 mg/dLsuggests DIABETES MELLITUS per A.D.A. criteria. Potassium [Moles/Vol] 4.6 mmol/L 3.5-5.[address] [facility] Sodium [Moles/Vol] 134 mmol/L 136-145 [facility] Basophil percentageOrdered B y: Coreen Gerardo on 06-26-2022 Cholesterol [Mass/Vol] 145 mg/dL <200 [facility] Comment on above: <200 mg/dL Desirable 200-240 mg/dL Borderline >240 mg/dL High Risk Testosterone [Mass/Vol] 122 ng/dL 264-916 [facility] Comment on above: Adult male reference interval is based on a population ofhealthy nonobese males (BMI <30) between 19 and 39 yearsold. Dina et.al. JCEM 2017,102;[id number]. PMID:[id number]. Triglyceride [Mass/Vol] 271 mg/dL <199 [facility] Comment on above: The drugs N-Acetylcy steine and Metamizole may falsely depress this assay.Serum Triglycerides Reference Interval Normal <150 mg/dL Borderline high 150 - 199 mg/dL High 200 - 499 mg/dL Very High > or = 500 mg/dL Free testosterone percentage Ordered By: Coreen Gerardo on 06-26-2022 Testosterone Free/Testosterone.total [Mass fraction] 3.10 % 1.50-4.20 [facility] Comment on above: Performed at: CB - [facility] [address] [id number] Director: Chance Morales PhD, Phone: [phone] at: - [facility] [id number] [place], [place] [id number] Director: Rhina Norris MD, Phone: [phone] Laboratory - Chemistry and C hemistry - challengeOrdered By: Oren Sky on 06-26-2022 CO2 [Moles/Vol] 23.0 mmol/L 21.0-32.0 [facility] Urea nitrogen/Creatinine [Mass ratio] 30.7 mg/mg 10-20 [facility] Laboratory - Chemistry and C hemistry - challengeOrdered By: Coreen Gerardo on 06-26-2022 Free T4 [Mass/Vol] 1.33 ng/dL 0.76-1.46 [facility] No Panel InformationOrdered By: Oren Sky on 06-26-2022 Estimated GFR (MDRD) Amer 60 mL/min >60 [facility] Comment on above: GFR Calc Estimated GFR (MDRD) Non-Af Amer 50 mL/min >60 [facility] Comment on above: Non- GFR Calc No Panel InformationOrdered By: Coreen Gerardo on 06-26-2022 Thyroid Stimulating Hormone (TSH) 1.59 uIU/mL 0.358-3.74 [facility] Urine Microalbumin/Creatinine Ratio 72.5 mg/g CRE <30 [facility] Serum or plasma calcium grazyna urement (mass/volume)Ordered By: Oren Sky on 06-26-2022 Calcium [Mass/Vol] 9.0 mg/dL 8.5-10.1 [facility] Serum or plasma cholesterol in HDL measurement (mass/volume)Ordered By: Coreen Gerardo on 06-26-2022 Cholesterol in HDL [Mass/Vol] 36 mg/dL >40 [facility] Comment on above: The drugs N-Acetylcy steine and Metamizole may falsely depress this assay. Reference Range HDL <40 mg/dL Low HDL Cholesterol HDL >or= 60 mg/dL High HDL Cholesterol Serum or plasma cholesterol in VLDL measurement (mass/volume)Ordered By: Coreen Gerardo on 06-26-2022 Cholesterol in VLDL [Mass/Vol] 54 mg/dL 5-40 [facility] Serum or plasma creatinine m easurement (mass/volume)Ordered By: Oren Sky on 06-26-2022 Creatinine [Mass/Vol] 1.53 mg/dL 0.70-1.[address] [facility] Comment on above: The validity of the calculated GFR & GFRAA in patients over 70 years has not been determined. Clinical correlation is essential. Serum or plasma low density lipoprotein (LDL) cholesterol measurement (mass/volume)Ordered By: Coreen Gerardo on 06-26-2022 Cholesterol in LDL [Mass/Vol] 55 mg/dL 0-130 [facility] Serum or plasma testosterone free measurement (mass/volume)Ordered By: Coreen Gerardo on 06-26-2022 Testosterone Free [Mass/Vol] 3.78 ng/dL 5.00-21.00 [facility] Serum or plasma urea nitroge n measurement (mass/volume)Ordered By: Oren Syk on 06-26-2022 Urea nitrogen [Mass/Vol] 47 mg/dL 7-18 [facility] Thin prep Papanicolaou smear with manual screeningOrdered By: Oren Sky on 06-26-2022 Thin prep Papanicolaou smear with manual screening 7 5-15 [facility] Thin prep Papanicolaou smear with manual screeningOrdered By: Coreen Gerardo on 06-26-2022 Thin prep Papanicolaou smear with manual screening 51.1 mg/L NO RANGE EST. [facility] Urine creatinine measurement (mass/volume)Ordered By: Coreen Gerardo on 06-26-2022 Creatinine (U) [Mass/Vol] 70.50 mg/dL NO RANGE EST. [facility] Laboratory - Hematology and Cell countson 06-18-2022 HbA1c (Bld) [Mass fraction] 8.2 % [facility] Basophil percentageOrdered B y: Lydia Segura on 05-18-2022 Chloride [Moles/Vol] 106 mmol/L 98-107 [facility] Glucose [Mass/Vol] 251 mg/dL 74-106 [facility] Comment on above: Glucose result great er than or equal to 200 mg/dLsuggests DIABETES MELLITUS per A.D.A. criteria. Potassium [Moles/Vol] 3.8 mmol/L 3.5-5.[address] [facility] Sodium [Moles/Vol] 135 mmol/L 136-145 [facility] Laboratory - Chemistry and C hemistry - challengeOrdered By: Lydia Segura on 05-18-2022 CO2 [Moles/Vol] 21.0 mmol/L 21.0-32.0 [facility] Urea nitrogen/Creatinine [Mass ratio] 19.4 mg/mg 10-20 [facility] No Panel InformationOrdered By: Lydia Segura on 05-18-2022 Estimated GFR (MDRD) Amer 90 mL/min >60 [facility] Comment on above: GFR Calc Estimated GFR (MDRD) Non-Af Amer 75 mL/min >60 [facility] Comment on above: Non- GFR Calc Serum or plasma calcium grazyna urement (mass/volume)Ordered By: Lydia Segura on 05-18-2022 Calcium [Mass/Vol] 8.6 mg/dL 8.5-10.1 [facility] Serum or plasma creatinine m easurement (mass/volume)Ordered By: Lydia Segura on 05-18-2022 Creatinine [Mass/Vol] 1.08 mg/dL 0.70-1.[address] [facility] Comment on above: The validity of the calculated GFR & GFRAA in patients over 70 years has not been determined. Clinical correlation is essential. Serum or plasma urea nitroge n measurement (mass/volume)Ordered By: Lydia Segura on 05-18-2022 Urea nitrogen [Mass/Vol] 21 mg/dL 7-18 [facility] Thin prep Papanicolaou smear with manual screeningOrdered By: Lydia Segura on 05-18-2022 Thin prep Papanicolaou smear with manual screening 8 5-15 [facility] Absolute lymphocyte countOrd ered By: Oren Sky on 04-17-2022 Lymphocytes Auto (Unsp spec) [#/Vol] 2.25 10*3/uL 0.83-4.51 [facility] Basophil percentageOrdered B y: Oren Sky on 04-17-2022 Basophils/100 WBC (Bld) 1.1 % 0-1 [facility] Chloride [Moles/Vol] 102 mmol/L 98-107 [facility] Eosinophils/100 WBC (Bld) 3.3 % 0-5 [facility] Glucose [Mass/Vol] 263 mg/dL 74-106 [facility] Comment on above: Glucose result great er than or equal to 200 mg/dLsuggests DIABETES MELLITUS per A.D.A. criteria. Neutrophils (Bld) [#/Vol] 5.0 10*3/uL 2.0-7.7 [facility] Neutrophils/100 WBC (Bld) 59.8 % 47-70 [facility] Potassium [Moles/Vol] 4.0 mmol/L 3.5-5.[address] [facility] Sodium [Moles/Vol] 135 mmol/L 136-145 [facility] WBC (Bld) [#/Vol] 8.4 10*3/uL 4.4-11.0 [facility] Blood erythrocytes count (nu mber/volume)Ordered By: Oren Sky on 04-17-2022 RBC (Bld) [#/Vol] 4.44 10*6/uL 4.6-6.2 [facility] Blood hemoglobin measurement (mass/volume)Ordered By: Oren Sky on 04-17-2022 Hemoglobin (Bld) [Mass/Vol] 11.1 g/dL 13.0-16.5 [facility] Blood lymphocytes/100 leukoc ytesOrdered By: Oren Sky on 04-17-2022 Lymphocytes/100 WBC (Bld) 26.8 % 19-41 [facility] Blood monocytes/100 leukocyt esOrdered By: Oren Sky on 04-17-2022 Monocytes/100 WBC (Bld) 8.6 % 0-10 [facility] Blood platelet mean volumeOr dered By: Oren Sky on 04-17-2022 Platelet mean volume (Bld) [Entitic vol] 10.3 fL 6.2-12.0 [facility] Determination of erythrocyte mean corpuscular volume (MCV)Ordered By: Oren Sky on 04-17-2022 MCV (RBC) [Entitic vol] 80.2 fL 80-94 [facility] Hematocrit Auto (Bld) [Volum e fraction]Ordered By: Oren Sky on 04-17-2022 Hematocrit (Bld) [Volume fraction] 35.6 % 40-54 [facility] Iron measurement (mass/mass) Ordered By: Oren Sky on 04-17-2022 Iron (Unsp spec) [Mass/Mass] 48 ug/dL 65-175 [facility] Laboratory - Chemistry and C hemistry - challengeOrdered By: Oren Sky on 04-17-2022 CO2 [Moles/Vol] 22.0 mmol/L 21.0-32.0 [facility] Natriuretic peptide B (Bld) [Mass/Vol] 37.2 pg/mL 0-100 [facility] Urea nitrogen/Creatinine [Mass ratio] 25.8 mg/mg 10-20 [facility] Laboratory - Hematology and Cell countsOrdered By: Oren Sky on 04-17-2022 Erythrocyte distribution width (RBC) [Entitic vol] 50.0 fL 35.1-43.9 [facility] Erythrocyte distribution width (RBC) [Ratio] 17.2 % 11.6-14.6 [facility] Immature granulocytes/100 WBC (Bld) 0.400 % 0.0-0.9 [facility] Comment on above: IG% - Immature Granu locytes (promyelocytes, myelocytes and metamyelocytes) > 1% indicates that a LEFT SHIFT is Present. MCH (RBC) [Entitic mass] 25.0 pg 27.0-32.0 [facility] Nucleated RBC/100 WBC (Bld) [Ratio] 0 % 0-5 [facility] MCHC Auto (RBC) [Mass/Vol]Or dered By: Oren Sky on 04-17-2022 MCHC (RBC) [Mass/Vol] 31.2 g/dL 32-[address] [facility] No Panel InformationOrdered By: Oren Sky on 04-17-2022 Estimated GFR (MDRD) Amer 77 mL/min >60 [facility] Comment on above: GFR Calc Estimated GFR (MDRD) Non-Af Amer 64 mL/min >60 [facility] Comment on above: Non- GFR Calc Total Iron Binding Capacity 350 ug/dL 250-450 [facility] Platelets bldOrdered By: Jose Sky on 04-17-2022 Platelets (Bld) [#/Vol] 268 10*3/uL 150-450 [facility] Serum or plasma calcium grazyna urement (mass/volume)Ordered By: Oren Sky on 04-17-2022 Calcium [Mass/Vol] 8.9 mg/dL 8.5-10.1 [facility] Serum or plasma creatinine m easurement (mass/volume)Ordered By: Oren Sky on 04-17-2022 Creatinine [Mass/Vol] 1.24 mg/dL 0.70-1.[address] [facility] Comment on above: The validity of the calculated GFR & GFRAA in patients over 70 years has not been determined. Clinical correlation is essential. Serum or plasma iron saturat ion measurement (mass fraction)Ordered By: Oren Sky on 04-17-2022 Iron saturation [Mass fraction] 13.7 % 15.0-55.0 [facility] Serum or plasma urea nitroge n measurement (mass/volume)Ordered By: Oren Sky on 04-17-2022 Urea nitrogen [Mass/Vol] 32 mg/dL 7-18 [facility] Thin prep Papanicolaou smear with manual screeningOrdered By: Oren Sky on 04-17-2022 Thin prep Papanicolaou smear with manual screening 11 5-15 [facility] Laboratory - Hematology and Cell countson 01-15-2022 HbA1c (Bld) [Mass fraction] 8.3 % [facility] Absolute lymphocyte counton 09-04-2021 Lymphocytes Auto (Unsp spec) [#/Vol] 1.59 10*3/uL 0.83-4.51 [facility] Work Phone: Basophil percentageon 2021 Basophils/100 WBC (Bld) 0.5 % 0-1 [facility] Work Phone: Bilirubin [Mass/Vol] 0.60 mg/dL 0.20-1.00 [facility] Work Phone: Comment on above: For patients on eltr ombopag therapy, use of Dimension [place] TBIL is not recommended. Chloride [Moles/Vol] 107 mmol/L 98-107 [facility] Work Phone: Eosinophils/100 WBC (Bld) 3.6 % 0-5 [facility] Work Phone: Glucose [Mass/Vol] 174 mg/dL 74-106 [facility] Work Phone: Comment on above: Fasting Glucose resu lt greater than or equal to 126 mg/dL suggests DIABETES MELLITUS per A.D.A. criteria. Neutrophils (Bld) [#/Vol] 4.8 10*3/uL 2.0-7.7 [facility] Work Phone: Neutrophils/100 WBC (Bld) 63.3 % 47-70 [facility] Work Phone: Potassium [Moles/Vol] 4.0 mmol/L 3.5-5.[address] [facility] Work Phone: Protein [Mass/Vol] 7.6 g/dL 6.4-8.2 [facility] Work Phone: Sodium [Moles/Vol] 138 mmol/L 136-145 [facility] Work Phone: WBC (Bld) [#/Vol] 7.5 10*3/uL 4.4-11.0 [facility] Work Phone: Blood erythrocytes count (nu mber/volume)on 09-04-2021 RBC (Bld) [#/Vol] 4.26 10*6/uL 4.6-6.2 [facility] Work Phone: Blood hemoglobin measurement (mass/volume)on 09-04-2021 Hemoglobin (Bld) [Mass/Vol] 11.0 g/dL 13.0-16.5 [facility] Work Phone: Blood lymphocytes/100 leukoc yteson 09-04-2021 Lymphocytes/100 WBC (Bld) 21.2 % 19-41 [facility] Work Phone: Blood monocytes/100 leukocyt eson 09-04-2021 Monocytes/100 WBC (Bld) 10.7 % 0-10 [facility] Work Phone: Blood platelet mean volumeon 09-04-2021 Platelet mean volume (Bld) [Entitic vol] 10.2 fL 6.2-12.0 [facility] Work Phone: [phone] Determination of erythrocyte mean corpuscular volume (MCV)on 09-04-2021 MCV (RBC) [Entitic vol] 81.5 fL 80-94 [facility] Work Phone: [phone] Hematocrit Auto (Bld) [Volum e fraction]on 09-04-2021 Hematocrit (Bld) [Volume fraction] 34.7 % 40-54 [facility] Work Phone: [phone] Laboratory - Chemistry and C hemistry - challengeon 09-04-2021 ALP [Catalytic activity/Vol] 92 U/L 45-117 [facility] Work Phone: [phone] ALT [Catalytic activity/Vol] 23 U/L 16-61 [facility] Work Phone: [phone] CO2 [Moles/Vol] 26.0 mmol/L 21.0-32.0 [facility] Work Phone: [phone] Globulin (S) [Mass/Vol] 4.5 g/dL 2.2-4.2 [facility] Work Phone: [phone] Natriuretic peptide B (Bld) [Mass/Vol] 105.8 pg/mL 0-100 [facility] Work Phone: [phone] Urea nitrogen/Creatinine [Mass ratio] 25.2 mg/mg 10-20 [facility] Work Phone: [phone] Laboratory - Hematology and Cell countson 09-04-2021 Erythrocyte distribution width (RBC) [Entitic vol] 46.4 fL 35.1-43.9 [facility] Work Phone: [phone] Erythrocyte distribution width (RBC) [Ratio] 15.7 % 11.6-14.6 [facility] Work Phone: [phone] Immature granulocytes/100 WBC (Bld) 0.700 % 0.0-0.9 [facility] Work Phone: [phone] Comment on above: IG% - Immature Granu locytes (promyelocytes, myelocytes and metamyelocytes) > 1% indicates that a LEFT SHIFT is Present. MCH (RBC) [Entitic mass] 25.8 pg 27.0-32.0 [facility] Work Phone: Nucleated RBC/100 WBC (Bld) [Ratio] 0 % 0-5 [facility] Work Phone: MCHC Auto (RBC) [Mass/Vol]on 09-04-2021 MCHC (RBC) [Mass/Vol] 31.7 g/dL 32-[address] [facility] Work Phone: No Panel Informationon 09-04 Troponin I High Sensitivity 16 pg/mL 3.0-78.0 [facility] Work Phone: Comment on above: Please Note: New Karly t Units and Gender Specific Reference Ranges. For more information see Policy Stat Procedure [place] High Sensitivity Troponin (TNIH) and attachments. Estimated Creatinine Clearance Calc 92.55 ml/min [facility] Work Phone: Estimated GFR (MDRD) Amer 115 mL/min >60 [facility] Work Phone: Comment on above: GFR Calc Estimated GFR (MDRD) Non-Af Amer 95 mL/min >60 [facility] Work Phone: Comment on above: Non- GFR Calc Platelets bldon 09-04-2021 Platelets (Bld) [#/Vol] 200 10*3/uL 150-450 [facility] Work Phone: [phone] Serum or plasma albumin grazyna urement (mass/volume)on 09-04-2021 Albumin [Mass/Vol] 3.1 g/dL 3.2-5.0 [facility] Work Phone: [phone] Serum or plasma albumin/glob ulin mass ratioon 09-04-2021 Albumin/Globulin [Mass ratio] 0.7 {ratio} 0.9-2.4 [facility] Work Phone: [phone] Serum or plasma calcium grazyna urement (mass/volume)on 09-04-2021 Calcium [Mass/Vol] 8.5 mg/dL 8.5-10.1 [facility] Work Phone: [phone] Serum or plasma creatinine m easurement (mass/volume)on 09-04-2021 Creatinine [Mass/Vol] 0.87 mg/dL 0.70-1.[address] [facility] Work Phone: Comment on above: The validity of the calculated GFR & GFRAA in patients over 70 years has not been determined. Clinical correlation is essential. Serum or plasma urea nitroge n measurement (mass/volume)on 09-04-2021 Urea nitrogen [Mass/Vol] 22 mg/dL 7-18 [facility] Work Phone: Thin prep Papanicolaou smear with manual screeningon 09-04-2021 Thin prep Papanicolaou smear with manual screening 18 U/L 15-37 [facility] Work Phone: Thin prep Papanicolaou smear with manual screening 5 5-15 [facility] Work Phone: Absolute lymphocyte counton 07-16-2021 Lymphocytes Auto (Unsp spec) [#/Vol] 1.10 10*3/uL 0.83-4.51 [facility] Work Phone: Basophil percentageon 2021 Basophils/100 WBC (Bld) 0.7 % 0-1 [facility] Work Phone: Chloride [Moles/Vol] 105 mmol/L 98-107 [facility] Work Phone: Eosinophils/100 WBC (Bld) 3.2 % 0-5 [facility] Work Phone: Glucose [Mass/Vol] 283 mg/dL 74-106 [facility] Work Phone: Comment on above: Glucose result great er than or equal to 200 mg/dLsuggests DIABETES MELLITUS per A.D.A. criteria. Neutrophils (Bld) [#/Vol] 6.8 10*3/uL 2.0-7.7 [facility] Work Phone: Neutrophils/100 WBC (Bld) 76.6 % 47-70 [facility] Work Phone: Potassium [Moles/Vol] 3.9 mmol/L 3.5-5.[address] [facility] Work Phone: Sodium [Moles/Vol] 138 mmol/L 136-145 [facility] Work Phone: [phone] WBC (Bld) [#/Vol] 8.8 10*3/uL 4.4-11.0 [facility] Work Phone: [phone] Blood erythrocytes count (nu mber/volume)on 07-16-2021 RBC (Bld) [#/Vol] 4.49 10*6/uL 4.6-6.2 [facility]: [phone] Blood hemoglobin measurement (mass/volume)on 07-16-2021 Hemoglobin (Bld) [Mass/Vol] 11.8 g/dL 13.0-16.5 [facility] Work Phone: [phone] Blood lymphocytes/100 leukoc yteson 07-16-2021 Lymphocytes/100 WBC (Bld) 12.5 % 19-41 [facility] Work Phone: [phone] Blood monocytes/100 leukocyt eson 07-16-2021 Monocytes/100 WBC (Bld) 6.7 % 0-10 [facility] Work Phone: [phone] Blood platelet mean volumeon 07-16-2021 Platelet mean volume (Bld) [Entitic vol] 10.2 fL 6.2-12.0 [facility] Work Phone: [phone] Determination of erythrocyte mean corpuscular volume (MCV)on 07-16-2021 MCV (RBC) [Entitic vol] 82.9 fL 80-94 [facility] Work Phone: [phone] Hematocrit Auto (Bld) [Volum e fraction]on 07-16-2021 Hematocrit (Bld) [Volume fraction] 37.2 % 40-54 [facility] Work Phone: [phone] Laboratory - Chemistry and C hemistry - challengeon 07-16-2021 CO2 [Moles/Vol] 24.0 mmol/L 21.0-32.0 [facility] Work Phone: [phone] Natriuretic peptide B (Bld) [Mass/Vol] 59.2 pg/mL 0-100 [facility] Work Phone: [phone] Urea nitrogen/Creatinine [Mass ratio] 17.5 mg/mg 10-20 [facility] Work Phone: [phone] Laboratory - Hematology and Cell countson 07-16-2021 Erythrocyte distribution width (RBC) [Entitic vol] 47.2 fL 35.1-43.9 [facility] Work Phone: [phone] Erythrocyte distribution width (RBC) [Ratio] 15.9 % 11.6-14.6 [facility] Work Phone: [phone] Immature granulocytes/100 WBC (Bld) 0.300 % 0.0-0.9 [facility] Work Phone: [phone] Comment on above: IG% - Immature Granu locytes (promyelocytes, myelocytes and metamyelocytes) > 1% indicates that a LEFT SHIFT is Present. MCH (RBC) [Entitic mass] 26.3 pg 27.0-32.0 [facility] Work Phone: [phone] Nucleated RBC/100 WBC (Bld) [Ratio] 0 % 0-5 [facility] Work Phone: [phone] MCHC Auto (RBC) [Mass/Vol]on 07-16-2021 MCHC (RBC) [Mass/Vol] 31.7 g/dL 32-[address] [facility] Work Phone: No Panel Informationon 07-16 Estimated Creatinine Clearance Calc 64.68 ml/min [facility] Work Phone: [phone] Estimated GFR (MDRD) Amer 76 mL/min >60 [facility] Work Phone: [phone] Comment on above: GFR Calc Estimated GFR (MDRD) Non-Af Amer 63 mL/min >60 [facility] Work Phone: [phone] Comment on above: Non- GFR Calc Troponin I High Sensitivity 10 pg/mL 3.0-78.0 [facility] Work Phone: [phone] Comment on above: Please Note: New Karly t Units and Gender Specific Reference Ranges. For more information see Policy Stat Procedure [place] High Sensitivity Troponin (TNIH) and attachments. Platelets bldon 07-16-2021 Platelets (Bld) [#/Vol] 209 10*3/uL 150-450 [facility] Work Phone: Serum or plasma calcium grazyna urement (mass/volume)on 07-16-2021 Calcium [Mass/Vol] 8.7 mg/dL 8.5-10.1 [facility] Work Phone: Serum or plasma creatinine m easurement (mass/volume)on 07-16-2021 Creatinine [Mass/Vol] 1.26 mg/dL 0.70-1.[address] [facility] Work Phone: Comment on above: The validity of the calculated GFR & GFRAA in patients over 70 years has not been determined. Clinical correlation is essential. Serum or plasma urea nitroge n measurement (mass/volume)on 07-16-2021 Urea nitrogen [Mass/Vol] 22 mg/dL 7-18 [facility] Work Phone: Thin prep Papanicolaou smear with manual screeningon 07-16-2021 Thin prep Papanicolaou smear with manual screening 9 5-15 [facility] Work Phone: Absolute lymphocyte counton 07-12-2021 Lymphocytes Auto (Unsp spec) [#/Vol] 1.80 10*3/uL 0.83-4.51 [facility] Work Phone: Basophil percentageon 2021 Basophils/100 WBC (Bld) 0.9 % 0-1 [facility] Work Phone: Chloride [Moles/Vol] 103 mmol/L 98-107 [facility] Work Phone: Eosinophils/100 WBC (Bld) 5.6 % 0-5 [facility] Work Phone: Glucose [Mass/Vol] 182 mg/dL 74-106 [facility] Work Phone: Comment on above: Fasting Glucose resu lt greater than or equal to 126 mg/dL suggests DIABETES MELLITUS per A.D.A. criteria. Neutrophils (Bld) [#/Vol] 5.1 10*3/uL 2.0-7.7 [facility] Work Phone: Neutrophils/100 WBC (Bld) 61.8 % 47-70 [facility] Work Phone: Potassium [Moles/Vol] 3.6 mmol/L 3.5-5.1 [facility] Work Phone: Sodium [Moles/Vol] 135 mmol/L 136-145 [facility] [place]: WBC (Bld) [#/Vol] 8.2 10*3/uL 4.4-11.0 [facility] [place]: Blood erythrocytes count (nu mber/volume)on 07-12-2021 RBC (Bld) [#/Vol] 4.31 10*6/uL 4.6-6.2 [facility]: Blood hemoglobin measurement (mass/volume)on 07-12-2021 Hemoglobin (Bld) [Mass/Vol] 11.1 g/dL 13.0-16.5 [facility] Work Phone: Blood lymphocytes/100 leukoc yteson 07-12-2021 Lymphocytes/100 WBC (Bld) 22.0 % 19-41 [facility] Work Phone: Blood monocytes/100 leukocyt eson 07-12-2021 Monocytes/100 WBC (Bld) 9.3 % 0-10 [facility] Work Phone: Blood platelet mean volumeon 07-12-2021 Platelet mean volume (Bld) [Entitic vol] 10.2 fL 6.2-12.0 [facility] Work Phone: Determination of erythrocyte mean corpuscular volume (MCV)on 07-12-2021 MCV (RBC) [Entitic vol] 80.5 fL 80-94 [facility] Work Phone: Hematocrit Auto (Bld) [Volum e fraction]on 07-12-2021 Hematocrit (Bld) [Volume fraction] 34.7 % 40-54 [facility] Work Phone: [phone] Laboratory - Chemistry and C hemistry - challengeon 07-12-2021 CO2 [Moles/Vol] 24.0 mmol/L 21.0-32.0 [facility] Work Phone: [phone] Natriuretic peptide B (Bld) [Mass/Vol] 93.4 pg/mL 0-100 [facility] Work Phone: [phone] Urea nitrogen/Creatinine [Mass ratio] 22.0 mg/mg 10-20 [facility] Work Phone: [phone] Laboratory - Hematology and Cell countson 07-12-2021 Erythrocyte distribution width (RBC) [Entitic vol] 45.5 fL 35.1-43.9 [facility] Work Phone: [phone] Erythrocyte distribution width (RBC) [Ratio] 15.9 % 11.6-14.6 [facility] Work Phone: [phone] Immature granulocytes/100 WBC (Bld) 0.400 % 0.0-0.9 [facility] Work Phone: [phone] Comment on above: IG% - Immature Granu locytes (promyelocytes, myelocytes and metamyelocytes) > 1% indicates that a LEFT SHIFT is Present. MCH (RBC) [Entitic mass] 25.8 pg 27.0-32.0 [facility] Work Phone: [phone] Nucleated RBC/100 WBC (Bld) [Ratio] 0 % 0-5 [facility] Work Phone: [phone] MCHC Auto (RBC) [Mass/Vol]on 07-12-2021 MCHC (RBC) [Mass/Vol] 32.0 g/dL 32-[address] [facility] Work Phone: [phone] Panel Informationon 07-12 Estimated GFR (MDRD) Amer 99 mL/min >60 [facility] Work Phone: [phone] Comment on above: GFR Calc Estimated GFR (MDRD) Non-Af Amer 82 mL/min >60 [facility] Work Phone: [phone] Comment on above: Non- GFR Calc Thyroid Stimulating Hormone (TSH) 1.06 uIU/mL 0.358-3.74 [facility] Work Phone: Platelets bldon 07-12-2021 Platelets (Bld) [#/Vol] 223 10*3/uL 150-450 [facility] Work Phone: Serum or plasma calcium grazyna urement (mass/volume)on 07-12-2021 Calcium [Mass/Vol] 8.6 mg/dL 8.5-10.1 [facility] [place]: Serum or plasma creatinine m easurement (mass/volume)on 07-12-2021 Creatinine [Mass/Vol] 1.00 mg/dL 0.70-1.[address] [facility] Work Phone: Comment on above: The validity of the calculated GFR & GFRAA in patients over 70 years has not been determined. Clinical correlation is essential. Serum or plasma urea nitroge n measurement (mass/volume)on 07-12-2021 Urea nitrogen [Mass/Vol] 22 mg/dL 7-18 [facility] Work Phone: Thin prep Papanicolaou smear with manual screeningon 07-12-2021 Thin prep Papanicolaou smear with manual screening 8 5-15 [facility] Work Phone: Laboratory - Hematology and Cell countson 06-29-2021 HbA1c (Bld) [Mass fraction] 8.9 % [facility] Work Phone: Absolute lymphocyte counton 06-19-2021 Lymphocytes Auto (Unsp spec) [#/Vol] 1.28 10*3/uL 0.83-4.51 [facility] Work Phone: Basophil percentageon 2021 Lactate [Moles/Vol] 2.1 mmol/L 0.4-2.0 [facility] Work Phone: Comment on above: Critical Result(s) C alled at: 14:08:57 06/19/2021 by: Danae Zaldivar to Marlen. Results read back by same. Basophil percentage 0 SEEN /hpf 0-5 [facility] Work Phone: Basophils/100 WBC (Bld) 0.5 % 0-1 [facility] Work Phone: Chloride [Moles/Vol] 104 mmol/L 98-107 [facility] Work Phone: Eosinophils/100 WBC (Bld) 2.6 % 0-5 [facility] Work Phone: Glucose [Mass/Vol] 191 mg/dL 74-106 [facility] Work Phone: Comment on above: Fasting Glucose resu lt greater than or equal to 126 mg/dL suggests DIABETES MELLITUS per A.D.A. criteria. Neutrophils (Bld) [#/Vol] 5.1 10*3/uL 2.0-7.7 [facility] Work Phone: Neutrophils/100 WBC (Bld) 69.5 % 47-70 [facility] Work Phone: Potassium [Moles/Vol] 3.9 mmol/L 3.5-5.[address] [facility] Work Phone: Sodium [Moles/Vol] 137 mmol/L 136-145 [facility] Work Phone: WBC (Bld) [#/Vol] 7.4 10*3/uL 4.4-11.0 [facility] Work Phone: Bilirubin Test strip Ql (U)o n 06-19-2021 Bilirubin Ql (U) Negative Negative [facility] Work Phone: Blood erythrocytes count (nu mber/volume)on 06-19-2021 RBC (Bld) [#/Vol] 4.54 10*6/uL 4.6-6.2 [facility] Work Phone: Blood hemoglobin measurement (mass/volume)on 06-19-2021 Hemoglobin (Bld) [Mass/Vol] 12.0 g/dL 13.0-16.5 [facility] Work Phone: Blood lymphocytes/100 leukoc yteson 06-19-2021 Lymphocytes/100 WBC (Bld) 17.3 % 19-41 [facility] Work Phone: Blood monocytes/100 leukocyt eson 06-19-2021 Monocytes/100 WBC (Bld) 9.6 % 0-10 [facility] Work Phone: Blood platelet mean volumeon 06-19-2021 Platelet mean volume (Bld) [Entitic vol] 9.7 fL 6.2-12.0 [facility] Work Phone: Determination of erythrocyte mean corpuscular volume (MCV)on 06-19-2021 MCV (RBC) [Entitic vol] 79.7 fL 80-94 [facility] Work Phone: Hematocrit Auto (Bld) [Volum e fraction]on 06-19-2021 Hematocrit (Bld) [Volume fraction] 36.2 % 40-54 [facility] Work Phone: Ketones Test strip Ql (U)on 06-19-2021 Ketones Ql (U) Negative Negative [facility] Work Phone: Laboratory - Chemistry and C hemistry - challengeon 06-19-2021 CO2 [Moles/Vol] 26.0 mmol/L 21.0-32.0 [facility] Work Phone: Natriuretic peptide B (Bld) [Mass/Vol] 155.0 pg/mL 0-100 [facility] Work Phone: Urea nitrogen/Creatinine [Mass ratio] 14.6 mg/mg 10-20 [facility] Work Phone: Laboratory - Hematology and Cell countson 06-19-2021 Erythrocyte distribution width (RBC) [Entitic vol] 43.1 fL 35.1-43.9 [facility] Work Phone: Erythrocyte distribution width (RBC) [Ratio] 15.0 % 11.6-14.6 [facility] Work Phone: Immature granulocytes/100 WBC (Bld) 0.500 % 0.0-0.9 [facility] Work Phone: [phone] Comment on above: IG% - Immature Granu locytes (promyelocytes, myelocytes and metamyelocytes) > 1% indicates that a LEFT SHIFT is Present. MCH (RBC) [Entitic mass] 26.4 pg 27.0-32.0 [facility] Work Phone: [phone] Nucleated RBC/100 WBC (Bld) [Ratio] 0 % 0-5 [facility] Work Phone: [phone] MCHC Auto (RBC) [Mass/Vol]on 06-19-2021 MCHC (RBC) [Mass/Vol] 33.1 g/dL 32-[address] [facility] Work Phone: [phone] Mucus LM Ql (Urine sed)on Mucus Ql (Urine sed) 0 SEEN /hpf [facility] Work Phone: [phone] Nitrite Test strip Ql (U)on 06-19-2021 Nitrite Ql (U) Negative Negative [facility] Work Phone: [phone] Panel Informationon 06-19 Troponin I High Sensitivity 31 pg/mL 3.0-78.0 [facility] Work Phone: [phone] Comment on above: Please Note: New Karly t Units and Gender Specific Reference Ranges. For more information see Policy Stat Procedure [place] High Sensitivity Troponin (TNIH) and attachments. Estimated Creatinine Clearance Calc 84.90 ml/min [facility] Work Phone: [phone] Estimated GFR (MDRD) Amer 104 mL/min >60 [facility] Work Phone: [phone] Comment on above: GFR Calc Estimated GFR (MDRD) Non-Af Amer 86 mL/min >60 [facility] Work Phone: [phone] Comment on above: Non- GFR Calc Platelets bldon 06-19-2021 Platelets (Bld) [#/Vol] 216 10*3/uL 150-450 [facility] Work Phone: [phone] Protein Test strip Ql (U)on 06-19-2021 Protein Ql (U) 30 mg/dl Negative [facility] Work Phone: Serum or plasma calcium grazyna urement (mass/volume)on 06-19-2021 Calcium [Mass/Vol] 8.8 mg/dL 8.5-10.1 [facility] Work Phone: Serum or plasma creatinine m easurement (mass/volume)on 06-19-2021 Creatinine [Mass/Vol] 0.96 mg/dL 0.70-1.[address] [facility] Work Phone: Comment on above: The validity of the calculated GFR & GFRAA in patients over 70 years has not been determined. Clinical correlation is essential. Serum or plasma urea nitroge n measurement (mass/volume)on 06-19-2021 Urea nitrogen [Mass/Vol] 14 mg/dL 7-18 [facility] Work Phone: Squamous epithelial cells de tection in urine sediment by light microscopyon 06-19-2021 Epithelial cells.squamous LM Ql (Urine sed) 0 SEEN /hpf 0-5 [facility] Work Phone: Thin prep Papanicolaou smear with manual screeningon 06-19-2021 Thin prep Papanicolaou smear with manual screening 7 5-15 [facility] Work Phone: Urine blood detectionon 05-31 RBC Ql (U) Negative Negative [facility] Work Phone: RBC Ql (U) 0 SEEN /hpf 0-5 [facility] Work Phone: Urine clarityon 06-19-2021 Clarity (U) Clear Clear [facility] Work Phone: Urine color determinationon 06-19-2021 Color (U) Yellow Yellow [facility] Work Phone: [phone] Urine glucose detectionon Glucose Ql (U) Normal mg/dl Normal [facility] Work Phone: Urine leukocyte esterase det ection by dipstickon 06-19-2021 Leukocyte esterase Test strip Ql (U) Negative Negative [facility] Work Phone: Urine pHon 06-19-2021 pH (U) 6.0 [pH] 5.0 - 8.0 [facility] Work Phone: Urine sediment bacteria coun t by microscopy (number/high power field)on 06-19-2021 Bacteria LM.HPF (Urine sed) [#/Area] 0 /[HPF] None Seen [facility] Work Phone: Urine specific gravity measu rementon 06-19-2021 Specific gravity (U) [Rel density] 1.015 1.002-1.03 0 [facility] Work Phone: Urobilinogen Auto test strip Ql (U)on 06-19-2021 Urobilinogen Ql (U) Normal mg/dl Normal [facility] Work Phone: No Panel Informationon 06-02 Urine Microalbumin/Creatinine Ratio 40.2 mg/g CRE <30 [facility] Work Phone: Thin prep Papanicolaou smear with manual screeningon 06-02-2021 Thin prep Papanicolaou smear with manual screening 22.8 mg/L NO RANGE EST. [facility] Work Phone: Urine creatinine measurement (mass/volume)on 06-02-2021 Creatinine (U) [Mass/Vol] 56.70 mg/dL NO RANGE EST. [facility] Work Phone: Basophil percentageon 2021 Bilirubin [Mass/Vol] 0.40 mg/dL 0.20-1.00 [facility] Work Phone: [phone] Comment on above: For patients on eltr ombopag therapy, use of Dimension [place] TBIL is not recommended. Chloride [Moles/Vol] 102 mmol/L 98-107 [facility] Work Phone: [phone] Cholesterol [Mass/Vol] 189 mg/dL <200 [facility] Work Phone: [phone] Comment on above: <200 mg/dL Desirable 200-240 mg/dL Borderline >240 mg/dL High Risk Glucose [Mass/Vol] 285 mg/dL 74-106 [facility] Work Phone: [phone] Comment on above: Glucose result great er than or equal to 200 mg/dLsuggests DIABETES MELLITUS per A.D.A. criteria. Potassium [Moles/Vol] 4.1 mmol/L 3.5-5.[address] [facility] Work Phone: [phone] Protein [Mass/Vol] 8.1 g/dL 6.4-8.2 [facility] Work Phone: [phone] Sodium [Moles/Vol] 133 mmol/L 136-145 [facility] Work Phone: [phone] Triglyceride [Mass/Vol] 526 mg/dL <199 [facility] Work Phone: [phone] Comment on above: The drugs N-Acetylcy steine [...] 06-01-2021 ALP [Catalytic activity/Vol] 96 U/L 45-117 [facility] Work Phone: [phone] ALT [Catalytic activity/Vol] 31 U/L 16-61 [facility] Work Phone: [phone] CO2 [Moles/Vol] 24.0 mmol/L 21.0-32.0 [facility] Work Phone: [phone] Globulin (S) [Mass/Vol] 4.6 g/dL 2.2-4.2 [facility] Work Phone: [phone] Urea nitrogen/Creatinine [Mass ratio] 22.3 mg/mg 10-20 [facility] Work Phone: [phone] Laboratory - Hematology and Cell countson 06-01-2021 HbA1c (Bld) [Mass fraction] 9.3 % [facility] Work Phone: [phone] Panel Informationon 06-01 Estimated GFR (MDRD) Amer 73 mL/min >60 [facility] Work Phone: [phone] Comment on above: GFR Calc Estimated GFR (MDRD) Non-Af Amer 60 mL/min >60 [facility] Work Phone: Comment on above: Non- GFR Calc Serum or plasma albumin grazyna urement (mass/volume)on 06-01-2021 Albumin [Mass/Vol] 3.5 g/dL 3.2-5.0 [facility] Work Phone: Serum or plasma albumin/glob ulin mass ratioon 06-01-2021 Albumin/Globulin [Mass ratio] 0.8 {ratio} 0.9-2.4 [facility] Work Phone: Serum or plasma calcium grazyna urement (mass/volume)on 06-01-2021 Calcium [Mass/Vol] 9.1 mg/dL 8.5-10.1 [facility] Work Phone: Serum or plasma cholesterol in HDL measurement (mass/volume)on 06-01-2021 Cholesterol in HDL [Mass/Vol] 33 mg/dL >40 [facility] Work Phone: Comment on above: The drugs N-Acetylcy steine and Metamizole may falsely depress this assay. Reference Range HDL <40 mg/dL Low HDL Cholesterol HDL >or= 60 mg/dL High HDL Cholesterol Serum or plasma cholesterol in VLDL measurement (mass/volume)on 06-01-2021 Cholesterol in VLDL [Mass/Vol] [facility] Work Phone: Comment on above: Test not performed Serum or plasma creatinine m easurement (mass/volume)on 06-01-2021 Creatinine [Mass/Vol] 1.30 mg/dL 0.70-1.[address] [facility] Work Phone: Comment on above: The validity of the calculated GFR & GFRAA in patients over 70 years has not been determined. Clinical correlation is essential. Serum or plasma low density lipoprotein (LDL) cholesterol measurement (mass/volume)on 06-01-2021 Cholesterol in LDL [Mass/Vol] [facility] Comment on above: Test not performed Serum or plasma urea nitroge n measurement (mass/volume)on 06-01-2021 Urea nitrogen [Mass/Vol] 29 mg/dL 7-18 [facility] Work Phone: Thin prep Papanicolaou smear with manual screeningon 06-01-2021 Thin prep Papanicolaou smear with manual screening 24 U/L 15-37 [facility] Work Phone: Thin prep Papanicolaou smear with manual screening 7 5-15 [facility] Work Phone: Absolute lymphocyte counton 05-30-2021 Lymphocytes Auto (Unsp spec) [#/Vol] 1.58 10*3/uL 0.83-4.51 [facility] Work Phone: Basophil percentageon 2021 Basophils/100 WBC (Bld) 0.7 % 0-1 [facility] Work Phone: Eosinophils/100 WBC (Bld) 2.4 % 0-5 [facility] Work Phone: Neutrophils (Bld) [#/Vol] 4.4 10*3/uL 2.0-7.7 [facility] Work Phone: Neutrophils/100 WBC (Bld) 64.8 % 47-70 [facility] Work Phone: WBC (Bld) [#/Vol] 6.7 10*3/uL 4.4-11.0 [facility] Work Phone: Blood erythrocytes count (nu mber/volume)on 05-30-2021 RBC (Bld) [#/Vol] 4.54 10*6/uL 4.6-6.2 [facility] Work Phone: Blood hemoglobin measurement (mass/volume)on 05-30-2021 Hemoglobin (Bld) [Mass/Vol] 11.9 g/dL 13.0-16.5 [facility] Work Phone: Blood lymphocytes/100 leukoc yteson 05-30-2021 Lymphocytes/100 WBC (Bld) 23.4 % 19-41 [facility] Work Phone: Blood monocytes/100 leukocyt eson 05-30-2021 Monocytes/100 WBC (Bld) 8.6 % 0-10 [facility] Work Phone: [phone] Blood platelet mean volumeon 05-30-2021 Platelet mean volume (Bld) [Entitic vol] 10.7 fL 6.2-12.0 [facility] Work Phone: [phone] Determination of erythrocyte mean corpuscular volume (MCV)on 05-30-2021 MCV (RBC) [Entitic vol] 81.3 fL 80-94 [facility] Work Phone: [phone] Hematocrit Auto (Bld) [Volum e fraction]on 05-30-2021 Hematocrit (Bld) [Volume fraction] 36.9 % 40-54 [facility] Work Phone: [phone] Laboratory - Hematology and Cell countson 05-30-2021 Erythrocyte distribution width (RBC) [Entitic vol] 46.5 fL 35.1-43.9 [facility] Work Phone: [phone] Erythrocyte distribution width (RBC) [Ratio] 15.6 % 11.6-14.6 [facility] Work Phone: [phone] Immature granulocytes/100 WBC (Bld) 0.100 % 0.0-0.9 [facility] Work Phone: [phone] Comment on above: IG% - Immature Granu locytes (promyelocytes, myelocytes and metamyelocytes) > 1% indicates that a LEFT SHIFT is Present. MCH (RBC) [Entitic mass] 26.2 pg 27.0-32.0 [facility] Work Phone: [phone] Nucleated RBC/100 WBC (Bld) [Ratio] 0 % 0-5 [facility] Work Phone: [phone] MCHC Auto (RBC) [Mass/Vol]on 05-30-2021 MCHC (RBC) [Mass/Vol] 32.2 g/dL 32-36 [facility] Work Phone: [phone] No Panel Informationon 05-30 Thyroid Stimulating Hormone (TSH) 1.24 uIU/mL 0.358-3.74 [facility] Work Phone: Platelets bldon 05-30-2021 Platelets (Bld) [#/Vol] 201 10*3/uL 150-450 [facility] Work Phone: Final Surgical Pathology Rep shruthi 08-11-2018 Final Surgical Pathology Report . Pathology Reports Accession: Collected Date/Time: Received Date/Time: Pathologist: [id number] 08/07/2018 14:48 EDT 08/08/2018 14:48 EDT URBAN [...] cm. TS -1 Dictated by Talita GRIFFITHS ([facility]) MICROSCOPIC DESCRIPTION: A-B Slides reviewed. Electronically Signed by Pathology Report verified by [facility] Electronically signed by URBAN BILLINGS Sign out Date: 08/11/2018 15:23 Performing Lab: [facility], [address] [place] [address] ([place]) Comment on above: Performed By: #### S PFR #### [place] [id number] Otheron 12-28-2010 CONVERTED CLINICAL HISTORY OPERATIVE PROCEDURE: V arthroscopy, partial medial meniscectomy rt knee CLINICAL INFORMATION: Partial medial meniscal tear rt knee [facility] CONVERTED ELECTRONIC SIGNATURE OCHOA SPENCER M.D., PATHOLOGIST (Electronic signature on file) Final Signed Out: 12/28/2010 13:12 [facility] CONVERTED FINAL DIAGNOSIS FINAL DIAGNOSIS: RIGHT KNEE, INTRAARTICULAR SHAVINGS - FIBROCARTILAGE WITH DEGENERATIVE CHANGES. SPECIMEN: SHAVINGS, KNEE [facility] CONVERTED GROSS DESCRIPTION GROSS DESCRIPTION: Intra-articular shavings rt knee Container labeled shavings right knee. Received in a cloth sock are portions of yellow-white fibrocartilaginous tissue measuring 2 x 2 x 1 cm in aggregate. A patient intake representative sample is submitted in a single cassette. SMS/lrs MICROSCOPIC DESCRIPTION: Slides reviewed. EDS/gpl [facility] CONVERTED ORDERING PROVIDER Ordering Provider: KARLOS AQUINO [facility] Vital Signs Date Time Vital Sign Value Performing Clinician Facility 09-26-2024 18:10-0400 Body temperature 97.8 [degF] Dr. Radha Khan MD Work Phone: [facility] 09-26-2024 18:10-0400 Diastolic blood pressure 64 mm[Hg] Dr. Radha Khan MD Work Phone: [facility] 09-26-2024 18:10-0400 Heart rate 74 /min Dr. Radha Khan MD Work Phone: [facility] 09-26-2024 18:10-0400 Respiratory rate 26 /min Dr. Radha Khan MD Work Phone: [facility] 09-26-2024 18:10-0400 SaO2% (BldA) [Mass fraction] 94 % Dr. Radha Khan MD Work Phone: [facility] 09-26-2024 18:10-0400 Systolic blood pressure 133 mm[Hg] Dr. Radha Khan MD Work Phone: [facility] 09-26-2024 17:19-0400 Inhaled oxygen flow rate 4 L/min Dr. Radha Khan MD Work Phone: [facility] 09-26-2024 15:29-0400 Body height 175.[address] Radha Khan MD Work Phone: [facility] 09-24-2024 09:03-0400 Diastolic blood pressure 69 mm[Hg] Dick Nguyen MD Work Phone: [facility] 09-24-2024 09:03-0400 Systolic blood pressure 100 mm[Hg] Dick Nguyen MD Work Phone: [facility] 09-24-2024 08:55-0400 Body temperature 96.8 [degF] Dick Nguyen MD Work Phone: [facility] 09-24-2024 08:55-0400 Heart rate 57 /min Dick Nguyen MD Work Phone: [facility] 09-24-2024 08:55-0400 Respiratory rate 29 /min Dick Nguyen MD Work Phone: [facility] 09-24-2024 08:55-0400 SaO2% (BldA) [Mass fraction] 96 % Dick Nguyen MD Work Phone: [facility] 09-24-2024 06:54-0400 Body height 175.3 cm Dick Nguyen MD Work Phone: [facility] 09-24-2024 06:54-0400 Body mass index (BMI) [Ratio] 47.85 kg/m2 Dick Nguyen MD Work Phone: [facility] 09-24-2024 06:54-0400 Body weight 146.97 kg Dick Nguyen MD Work Phone: [facility] 09-16-2024 10:01-0400 Body height 175.[address] Radha Khan MD Work Phone: [facility] 09-16-2024 10:01-0400 Body mass index (BMI) [Ratio] 48.1 kg/m2 Dr. Radha Khan MD Work Phone: [facility] 09-16-2024 10:01-0400 Body weight 147.[address] Radha Khan MD Work Phone: [facility] 09-16-2024 10:01-0400 Diastolic blood pressure 70 mm[Hg] Dr. Radha Khan MD Work Phone: [facility] 09-16-2024 10:01-0400 Heart rate 72 /min Dr. Radha Khan MD Work Phone: [facility] 09-16-2024 10:01-0400 SaO2% (BldA) [Mass fraction] 96 % Dr. Radha Khan MD Work Phone: [facility] 09-16-2024 10:01-0400 Systolic blood pressure 109 mm[Hg] Dr. Radah Khan MD Work Phone: [phone] [place] [address] 09-15-2024 12:59-0400 Body height 175.[address] Radha Khan MD Work Phone: [phone] [place] [address] 09-15-2024 12:59-0400 Body mass index (BMI) [Ratio] 47.8 kg/m2 Dr. Radha Khan MD Work Phone: [phone] [place] [address] 09-15-2024 12:59-0400 Body temperature 98.2 [degF] Dr. Radha Khan MD Work Phone: [phone] [place] [address] 09-15-2024 12:59-0400 Body weight 146.[address] Radha Khan MD Work Phone: [phone] [place] [address] 09-15-2024 12:59-0400 Diastolic blood pressure 59 mm[Hg] Dr. Radha Khan MD Work Phone: [phone] [place] [address] 09-15-2024 12:59-0400 Heart rate 82 /min Dr. Radha Khan MD Work Phone: [phone] [place] [address] 09-15-2024 12:59-0400 Inhaled oxygen flow rate 4 L/min Dr. Radha Khan MD Work Phone: [facility] 09-15-2024 12:59-0400 Respiratory rate 17 /min Dr. Radha Khan MD Work Phone: [facility] 09-15-2024 12:59-0400 SaO2% (BldA) [Mass fraction] 94 % Dr. Radha Khan MD Work Phone: [phone] [address] [place] [place] [address] 09-15-2024 12:59-0400 Systolic blood pressure 104 mm[Hg] Dr. Radha Khan MD Work Phone: [facility] 08-28-2024 11:58-0400 Body temperature 97.9 [degF] Rosalino Padron MD Work Phone: [facility] 08-28-2024 11:58-0400 Body weight 143.79 kg Rosalino Padron MD Work Phone: [facility] 08-28-2024 11:58-0400 Diastolic blood pressure 70 mm[Hg] Rosalino Padron MD Work Phone: [facility] 08-28-2024 11:58-0400 Heart rate 76 /min Rosalino Padron MD Work Phone: [facility] 08-28-2024 11:58-0400 SaO2% (BldA) [Mass fraction] 95 % Rosalino Padron MD Work Phone: [facility] Comment on above: 4L O2 08-28-2024 11:58-0400 Systolic blood pressure 125 mm[Hg] Rosalino Padron MD Work Phone: [facility] 08-17-2024 11:25-0400 Body height 175.[address] Radha Khan MD Work Phone: [facility] 08-17-2024 11:25-0400 Body mass index (BMI) [Ratio] 46 kg/m2 Dr. aRdha Khan MD Work Phone: [facility] 08-17-2024 11:25-0400 Body temperature 98.2 [degF] Dr. Radha Khan MD Work Phone: [facility] 08-17-2024 11:25-0400 Body weight 141.[address] Radha Khan MD Work Phone: [facility] 08-17-2024 11:25-0400 Diastolic blood pressure 70 mm[Hg] Dr. Radha Khan MD Work Phone: [facility] 08-17-2024 11:25-0400 Heart rate 74 /min Dr. Radha Khan MD Work Phone: [facility] 08-17-2024 11:25-0400 Inhaled oxygen flow rate 4 L/min Dr. Radha Khan MD Work Phone: [facility] 08-17-2024 11:25-0400 Respiratory rate 16 /min Dr. Radha Khan MD Work Phone: [facility] 08-17-2024 11:25-0400 SaO2% (BldA) [Mass fraction] 96 % Dr. Radha Khan MD Work Phone: [facility] 08-17-2024 11:25-0400 Systolic blood pressure 119 mm[Hg] Dr. Radha Khan MD Work Phone: [facility] 08-07-2024 14:09-0400 Body temperature 98.01 [degF] Rosalino Padron MD Work Phone: [facility] 08-07-2024 14:09-0400 Body weight 141.98 kg Rosalino Padron MD Work Phone: [facility] 08-07-2024 14:09-0400 Diastolic blood pressure 58 mm[Hg] Rosalino Padron MD Work Phone: [facility] 08-07-2024 14:09-0400 Heart rate 81 /min Rosalino Padron MD Work Phone: [facility] 08-07-2024 14:09-0400 SaO2% (BldA) [Mass fraction] 98 % Rosalino Padron MD Work Phone: [facility] 08-07-2024 14:09-0400 Systolic blood pressure 92 mm[Hg] Rosalino Padron MD Work Phone: [facility] 08-06-2024 14:41-0400 Body temperature 98.2 [degF] Dr. Radha Khna MD Work Phone: [facility] 08-06-2024 14:41-0400 Body weight 142.[address] Radha Khan MD Work Phone: [facility] 08-06-2024 14:41-0400 Diastolic blood pressure 69 mm[Hg] Dr. Radha Khan MD Work Phone: [facility] 08-06-2024 14:41-0400 Heart rate 80 /min Dr. Radha Khan MD Work Phone: [facility] 08-06-2024 14:41-0400 Inhaled oxygen flow rate 8 L/min Dr. Radha Khan MD Work Phone: 3(454)350-223290 [place] [address] 08-06-2024 14:41-0400 Respiratory rate 17 /min Dr. Radha Khan MD Work Phone: [facility] 08-06-2024 14:41-0400 SaO2% (BldA) [Mass fraction] 94 % Dr. Radha Khan MD Work Phone: [facility] 08-06-2024 14:41-0400 Systolic blood pressure 99 mm[Hg] Dr. Radha Khan MD Work Phone: [facility] 07-06-2024 13:44-0400 Body temperature 98.2 [degF] Dr. Radha Khan MD Work Phone: [facility] 07-06-2024 13:44-0400 Body weight 139.[address] Radha Khan MD Work Phone: [facility] 07-06-2024 13:44-0400 Diastolic blood pressure 68 mm[Hg] Dr. Radha Khan MD Work Phone: [facility] 07-06-2024 13:44-0400 Heart rate 91 /min Dr. Radha Khan MD Work Phone: [facility] 07-06-2024 13:44-0400 Inhaled oxygen flow rate 4 L/min Dr. Radha Khan MD Work Phone: [facility] 07-06-2024 13:44-0400 Respiratory rate 17 /min Dr. Radha Khan MD Work Phone: [facility] 07-06-2024 13:44-0400 SaO2% (BldA) [Mass fraction] 97 % Dr. Radha Khan MD Work Phone: [facility] 07-06-2024 13:44-0400 Systolic blood pressure 110 mm[Hg] Dr. Radha Khan MD Work Phone: [facility] 06-26-2024 11:10-0400 Body temperature 97.59 [degF] Rosalino Padron MD Work Phone: [facility] 06-26-2024 11:10-0400 Body weight 141.07 kg Rosalino Padron MD Work Phone: [facility] 06-26-2024 11:10-0400 Diastolic blood pressure 78 mm[Hg] Rosalino Padron MD Work Phone: [facility] 06-26-2024 11:10-0400 Heart rate 76 /min Rosalino Padron MD Work Phone: [facility] 06-26-2024 11:10-0400 SaO2% (BldA) [Mass fraction] 98 % Rosalino Padron MD Work Phone: [facility] Comment on above: pt on 4L O2 06-26-2024 11:10-0400 Systolic blood pressure 157 mm[Hg] Rosalino Padron MD Work Phone: [facility] 06-10-2024 08:19-0400 Body mass index (BMI) [Ratio] 45.3 kg/m2 Dr. Radha Khan MD Work Phone: [facility] 06-10-2024 08:19-0400 Body temperature 97.2 [degF] Dr. Radha Khan MD Work Phone: [facility] 06-10-2024 08:19-0400 Body weight 139.[address] Radha Khan MD Work Phone: [facility] 06-10-2024 08:19-0400 Diastolic blood pressure 76 mm[Hg] Dr. Radha Khan MD Work Phone: [facility] 06-10-2024 08:19-0400 Heart rate 59 /min Dr. Radha Khan MD Work Phone: 5(315)617-310190 [place] [address] 06-10-2024 08:19-0400 Inhaled oxygen flow rate 4 L/min Dr. Radha Khan MD Work Phone: 2(980)830-951590 [place] [address] 06-10-2024 08:19-0400 Respiratory rate 20 /min Dr. Radha Khan MD Work Phone: 0(228)862-714126 [address] 06-10-2024 08:19-0400 SaO2% (BldA) [Mass fraction] 99 % Dr. Radha Khan MD Work Phone: 8(512)826-007890 [place] [address] 06-10-2024 08:19-0400 Systolic blood pressure 115 mm[Hg] Dr. Radha Khan MD Work Phone: 3(150)685-487890 [place] [address] 06-04-2024 13:50-0500 Body height 175.[address] Radha Khan MD Work Phone: 2(059)000-099834 [place] [address] 06-04-2024 13:50-0500 Body mass index (BMI) [Ratio] 45.1 kg/m2 Dr. Radha Khan MD Work Phone: 4(209)031-343290 [place] [address] 06-04-2024 13:50-0500 Body temperature 97.8 [degF] Dr. Radha Khan MD Work Phone: 4(553)932-484590 [place] [address] 06-04-2024 13:50-0500 Body weight 138.[address] Radha Khan MD Work Phone: 4(670)035-902390 [place] [address] 06-04-2024 13:50-0500 Diastolic blood pressure 61 mm[Hg] Dr. Radha Khan MD Work Phone: 7(142)208-802890 [place] [address] 06-04-2024 13:50-0500 Heart rate 59 /min Dr. Radha Khan MD Work Phone: [facility] 06-04-2024 13:50-0500 Inhaled oxygen flow rate 4 L/min Dr. Radha Khan MD Work Phone: [facility] 06-04-2024 13:50-0500 Respiratory rate 17 /min Dr. Radha Khan MD Work Phone: [facility] 06-04-2024 13:50-0500 SaO2% (BldA) [Mass fraction] 92 % Dr. Radha Khan MD Work Phone: 3(335)405-964290 [place] [address] 06-04-2024 13:50-0500 Systolic blood pressure 141 mm[Hg] Dr. Radha Khan MD Work Phone: 9(987)372-447890 [place] [address] 05-21-2024 10:44-0500 Body mass index (BMI) [Ratio] 43.7 kg/m2 Dr. Radha Khan MD Work Phone: 4(371)943-891526 [address] 05-21-2024 10:44-0500 Body weight 134.[address] Radha Khan MD Work Phone: 8(277)288-114826 [address] 05-21-2024 10:44-0500 Diastolic blood pressure 69 mm[Hg] Dr. Radha Khan MD Work Phone: 9(443)489-426990 [place] [address] 05-21-2024 10:44-0500 Heart rate 75 /min Dr. Radha Khan MD Work Phone: 6(222)509-486390 [place] [address] 05-21-2024 10:44-0500 Inhaled oxygen flow rate 4 L/min Dr. Radha Khan MD Work Phone: [facility] 05-21-2024 10:44-0500 Respiratory rate 18 /min Dr. Radha Khan MD Work Phone: [facility] 05-21-2024 10:44-0500 SaO2% (BldA) [Mass fraction] 100 % Dr. Radha Khan MD Work Phone: [facility] 05-21-2024 10:44-0500 Systolic blood pressure 105 mm[Hg] Dr. Radha Khan MD Work Phone: [facility] 05-06-2024 08:35-0500 Body temperature 96.69 [degF] Mey Bosz INFECTION CONTROL MANAGER - CONCRETE INSPECTOR Work Phone: [facility] 05-06-2024 08:35-0500 Diastolic blood pressure 63 mm[Hg] Mey Bosz INFECTION CONTROL MANAGER - CONCRETE INSPECTOR Work Phone: [facility] 05-06-2024 08:35-0500 Heart rate 72 /min Mey Bosz INFECTION CONTROL MANAGER - CONCRETE INSPECTOR Work Phone: [facility] 05-06-2024 08:35-0500 Respiratory rate 20 /min Mey Bosz INFECTION CONTROL MANAGER - CONCRETE INSPECTOR Work Phone: [facility] 05-06-2024 08:35-0500 SaO2% (BldA) [Mass fraction] 95 % Mey Bosz INFECTION CONTROL MANAGER - CONCRETE INSPECTOR Work Phone: [facility] 05-06-2024 08:35-0500 Systolic blood pressure 112 mm[Hg] Mey Bosz INFECTION CONTROL MANAGER - CONCRETE INSPECTOR Work Phone: [facility] 05-05-2024 13:14-0500 Body temperature 98 [degF] Dr. Radha Khan MD Work Phone: [facility] 05-05-2024 13:14-0500 Diastolic blood pressure 63 mm[Hg] Dr. Radha Khan MD Work Phone: [facility] 05-05-2024 13:14-0500 Heart rate 66 /min Dr. Radha Khan MD Work Phone: [facility] 05-05-2024 13:14-0500 Respiratory rate 18 /min Dr. Radha Khan MD Work Phone: [facility] 05-05-2024 13:14-0500 SaO2% (BldA) [Mass fraction] 100 % Dr. Radha Khan MD Work Phone: [facility] 05-05-2024 13:14-0500 Systolic blood pressure 101 mm[Hg] Dr. Radha Khan MD Work Phone: 3(355)833-716390 [place] [address] 05-01-2024 12:31-0500 Body mass index (BMI) [Ratio] 44.4 kg/m2 Dr. Radha Khan MD Work Phone: 6(284)053-842834 [place] [address] 05-01-2024 12:31-0500 Body temperature 98.3 [degF] Dr. Radha Khan MD Work Phone: 7(785)061-981934 [place] [address] 05-01-2024 12:31-0500 Body weight 136.[address] Radha Khan MD Work Phone: 8(717)238-488734 [place] [address] 05-01-2024 12:31-0500 Diastolic blood pressure 60 mm[Hg] Dr. Radha Khan MD Work Phone: 8(396)118-570134 [place] [address] 05-01-2024 12:31-0500 Heart rate 70 /min Dr. Radha Khan MD Work Phone: 0(660)274-709634 [place] [address] 05-01-2024 12:31-0500 Inhaled oxygen flow rate 4 L/min Dr. Radha Khan MD Work Phone: 8(096)227-298534 [place] [address] 05-01-2024 12:31-0500 Respiratory rate 18 /min Dr. Radha Khan MD Work Phone: 1(294)281-903534 [place] [address] 05-01-2024 12:31-0500 SaO2% (BldA) [Mass fraction] 100 % Dr. Radha Khan MD Work Phone: 8(553)945-583890 [place] [address] 05-01-2024 12:31-0500 Systolic blood pressure 97 mm[Hg] Dr. Radha Khan MD Work Phone: 7(344)082-610934 [place] [address] 04-30-2024 14:32-0500 Body temperature 97.4 [degF] Dr. Radha Khan MD Work Phone: 0(594)272-482234 [place] [address] 04-30-2024 14:32-0500 Body weight 138.[address] Radha Khan MD Work Phone: 4(282)793-944534 [place] [address] 04-30-2024 14:32-0500 Diastolic blood pressure 58 mm[Hg] Dr. Radha Khan MD Work Phone: 7(245)840-884634 [place] [address] 04-30-2024 14:32-0500 Heart rate 73 /min Dr. Radha Khan MD Work Phone: 2(562)718-716434 [place] [address] 04-30-2024 14:32-0500 Inhaled oxygen flow rate 4 L/min Dr. Radha Khan MD Work Phone: 9(042)982-127234 [place] [address] 04-30-2024 14:32-0500 Respiratory rate 18 /min Dr. Radha Khan MD Work Phone: 4(142)201-655034 [place] [address] 04-30-2024 14:32-0500 SaO2% (BldA) [Mass fraction] 94 % Dr. Radha Khan MD Work Phone: 5(740)897-297534 [place] [address] 04-30-2024 14:32-0500 Systolic blood pressure 111 mm[Hg] Dr. Radha Khan MD Work Phone: 2(902)176-549634 [place] [address] 04-30-2024 13:26-0500 Body mass index (BMI) [Ratio] 44.7 kg/m2 Dr. Radha Khan MD Work Phone: 0(953)987-367834 [place] [address] 04-30-2024 13:26-0500 Body weight 137.[address] Radha Khan MD Work Phone: 0(323)154-452534 [place] [address] 04-30-2024 13:26-0500 Diastolic blood pressure 55 mm[Hg] Dr. Radha Khan MD Work Phone: 7(940)649-930834 [place] [address] 04-30-2024 13:26-0500 Heart rate 69 /min Dr. Radha Khan MD Work Phone: 9(430)951-055234 [place] [address] 04-30-2024 13:26-0500 Respiratory rate 18 /min Dr. Radha Khan MD Work Phone: 2(434)436-970634 [place] [address] 04-30-2024 13:26-0500 Systolic blood pressure 97 mm[Hg] Dr. Radha Khan MD Work Phone: [facility] 04-30-2024 11:30-0500 Body mass index (BMI) [Ratio] 44.7 kg/m2 Dr. Radha Khan MD Work Phone: [facility] 04-30-2024 11:30-0500 Body temperature 98.2 [degF] Dr. Radha Khan MD Work Phone: 8(314)889-242190 [place] [address] 04-30-2024 11:30-0500 Body weight 137.[address] Radha Khan MD Work Phone: [facility] 04-30-2024 11:30-0500 Diastolic blood pressure 74 mm[Hg] Dr. Radha Khan MD Work Phone: 8(340)513-240490 [place] [address] 04-30-2024 11:30-0500 Heart rate 80 /min Dr. Radha Khan MD Work Phone: 3(761)272-771890 [place] [address] 04-30-2024 11:30-0500 Inhaled oxygen flow rate 4 L/min Dr. Radha Khan MD Work Phone: 7(191)672-262190 [place] [address] 04-30-2024 11:30-0500 Respiratory rate 17 /min Dr. Radha Khan MD Work Phone: [facility] 04-30-2024 11:30-0500 SaO2% (BldA) [Mass fraction] 95 % Dr. Radha Khan MD Work Phone: [facility] 04-30-2024 11:30-0500 Systolic blood pressure 120 mm[Hg] Dr. Radha Khan MD Work Phone: [facility] 04-27-2024 14:43-0500 Body height 175.3 cm Suzy Jauregui MD Work Phone: [facility] 04-27-2024 14:43-0500 Body mass index (BMI) [Ratio] 46.07 kg/m2 Suzy Jauregui MD Work Phone: [facility] 04-27-2024 14:43-0500 Body weight 141.52 kg Suzy Jauregui MD Work Phone: [facility] 04-27-2024 14:43-0500 Diastolic blood pressure 60 mm[Hg] Suzy Jauregui MD Work Phone: [facility] 04-27-2024 14:43-0500 Heart rate 75 /min Suzy Jauregui MD Work Phone: [facility] 04-27-2024 14:43-0500 Respiratory rate 18 /min Suzy Jauregui MD Work Phone: [facility] 04-27-2024 14:43-0500 SaO2% (BldA) [Mass fraction] 95 % Suzy Jauregui MD Work Phone: [facility] 04-27-2024 14:43-0500 Systolic blood pressure 122 mm[Hg] Suzy Jauregui MD Work Phone: [facility] 04-25-2024 16:19-0500 Body mass index (BMI) [Ratio] 44.6 kg/m2 Dr. Radha Khan MD Work Phone: [facility] 04-25-2024 14:00-0500 Body temperature 98.5 [degF] Dr. Radha Khan MD Work Phone: [facility] 04-25-2024 14:00-0500 Diastolic blood pressure 54 mm[Hg] Dr. Radha Khan MD Work Phone: [facility] 04-25-2024 14:00-0500 Heart rate 93 /min Dr. Radha Khan MD Work Phone: [facility] 04-25-2024 14:00-0500 Inhaled oxygen flow rate 3.5 L/min Dr. Radha Khan MD Work Phone: [facility] 04-25-2024 14:00-0500 Respiratory rate 16 /min Dr. Radha Khan MD Work Phone: [facility] 04-25-2024 14:00-0500 SaO2% (BldA) [Mass fraction] 100 % Dr. Radha Khan MD Work Phone: 0(695)868-639334 [place] [address] 04-25-2024 14:00-0500 Systolic blood pressure 113 mm[Hg] Dr. Radha Khan MD Work Phone: 2(040)054-653234 [place] [address] 04-25-2024 09:20-0500 Body weight 137.[address] Radha Khan MD Work Phone: 0(651)303-255734 [place] [address] 04-22-2024 09:35-0500 Body mass index (BMI) [Ratio] 45.6 kg/m2 Dr. Radha Khan MD Work Phone: 3(179)338-011934 [place] [address] 04-22-2024 09:35-0500 Body temperature 97.3 [degF] Dr. Radha Khan MD Work Phone: 2(583)017-082334 [place] [address] 04-22-2024 09:35-0500 Body weight 140.[address] Radha Kahn MD Work Phone: 5(398)956-538334 [place] [address] 04-22-2024 09:35-0500 Diastolic blood pressure 76 mm[Hg] Dr. Radha Khan MD Work Phone: 4(657)179-899034 [place] [address] 04-22-2024 09:35-0500 Heart rate 67 /min Dr. Radha Khan MD Work Phone: 1(878)252-447234 [place] [address] 04-22-2024 09:35-0500 Inhaled oxygen flow rate 4 L/min Dr. Radha Khan MD Work Phone: 4(536)523-173634 [place] [address] 04-22-2024 09:35-0500 Respiratory rate 20 /min Dr. Radha Khan MD Work Phone: 9(174)114-193034 [place] [address] 04-22-2024 09:35-0500 SaO2% (BldA) [Mass fraction] 99 % Dr. Radha Khan MD Work Phone: 8(127)877-485534 [place] [address] 04-22-2024 09:35-0500 Systolic blood pressure 143 mm[Hg] Dr. Radha Khan MD Work Phone: 0(853)692-250134 [place] [address] 04-16-2024 09:22-0500 Body mass index (BMI) [Ratio] 44.9 kg/m2 Dr. Radha Khan MD Work Phone: [facility] 04-16-2024 09:22-0500 Body weight 138.[address] Radha Khan MD Work Phone: [facility] 04-16-2024 09:22-0500 Diastolic blood pressure 56 mm[Hg] Dr. Radha Khan MD Work Phone: 1(127)210-897490 [place] [address] 04-16-2024 09:22-0500 Heart rate 79 /min Dr. Radha Khan MD Work Phone: 4(375)394-807890 [place] [address] 04-16-2024 09:22-0500 Inhaled oxygen flow rate 4 L/min Dr. Radha Khan MD Work Phone: 9(163)861-703026 [address] 04-16-2024 09:22-0500 SaO2% (BldA) [Mass fraction] 78 % Dr. Radha Khan MD Work Phone: 7(234)000-048690 [place] [address] 04-16-2024 09:22-0500 Systolic blood pressure 105 mm[Hg] Dr. Radha Khan MD Work Phone: 5(862)822-699590 [place] [address] 04-15-2024 16:08-0500 Inhaled oxygen flow rate 4 L/min Dr. Radha Khan MD Work Phone: [facility] 04-15-2024 14:26-0500 Body temperature 97.9 [degF] Dr. Radha Khan MD Work Phone: 3(075)172-385490 [place] [address] 04-15-2024 14:26-0500 Diastolic blood pressure 66 mm[Hg] Dr. Radha Khan MD Work Phone: [facility] 04-15-2024 14:26-0500 Heart rate 79 /min Dr. Radha Khan MD Work Phone: [facility] 04-15-2024 14:26-0500 Respiratory rate 16 /min Dr. Radha Khan MD Work Phone: [facility] 04-15-2024 14:26-0500 SaO2% (BldA) [Mass fraction] 94 % Dr. Radha Khan MD Work Phone: [facility] 04-15-2024 14:26-0500 Systolic blood pressure 102 mm[Hg] Dr. Radha Khan MD Work Phone: [facility] 04-15-2024 03:24-0500 Body mass index (BMI) [Ratio] 44.5 kg/m2 Dr. Radha Khan MD Work Phone: [facility] 04-15-2024 03:24-0500 Body weight 136.[address] Radha Khan MD Work Phone: [facility] 04-13-2024 20:00-0500 Inhaled oxygen concentration 91 % Dr. Radha Khan MD Work Phone: [facility] 01-06-2024 10:49-0400 Body height 175.3 cm Oziel Culp MD Work Phone: [facility] 01-06-2024 10:49-0400 Body mass index (BMI) [Ratio] 46.07 kg/m2 Oziel Culp MD Work Phone: [facility] 01-06-2024 10:49-0400 Body weight 141.52 kg Oziel Culp MD Work Phone: [facility] 01-06-2024 10:49-0400 Diastolic blood pressure 72 mm[Hg] Oizel Culp MD Work Phone: [facility] 01-06-2024 10:49-0400 Heart rate 72 /min Oziel Culp MD Work Phone: [facility] 01-06-2024 10:49-0400 Systolic blood pressure 110 mm[Hg] Oziel Culp MD Work Phone: [facility] 10-05-2023 13:16-0400 Body temperature 97.39 [degF] Joe Rocha MD Work Phone: [facility] 10-05-2023 13:16-0400 Diastolic blood pressure 70 mm[Hg] Joe Rocha MD Work Phone: [facility] 10-05-2023 13:16-0400 Heart rate 83 /min Joe Rocha MD Work Phone: [facility] 10-05-2023 13:16-0400 Respiratory rate 20 /min Joe Rocha MD Work Phone: [facility] 10-05-2023 13:16-0400 SaO2% (BldA) [Mass fraction] 95 % Joe Rocha MD Work Phone: [facility] 10-05-2023 13:16-0400 Systolic blood pressure 107 mm[Hg] Joe Rocha MD Work Phone: [facility] 10-03-2023 15:30-0400 Body temperature 98.06 [degF] CHITO MEDLEY-GABRIELA INFECTION CONTROL MANAGER-CONCRETE INSPECTOR [facility] 10-03-2023 15:30-0400 Diastolic Blood Pressure Non-Invasive 73 mm[Hg] CHITO MEDLEY-GABRIELA INFECTION CONTROL MANAGER-CONCRETE INSPECTOR [facility] 10-03-2023 15:30-0400 Heart rate 82 /min CHITO MEDLEY-GABRIELA INFECTION CONTROL MANAGER-CONCRETE INSPECTOR [facility] 10-03-2023 15:30-0400 Reason For Taking VItal Signs CHITO MEDLEY-GABRIELA INFECTION CONTROL MANAGER-CONCRETE INSPECTOR [facility] 10-03-2023 15:30-0400 Respiratory rate 18 /min CHITO MEDLEY-GABRIELA INFECTION CONTROL MANAGER-CONCRETE INSPECTOR [facility] 10-03-2023 15:30-0400 Systolic Blood Pressure Non-Invasive 109 mm[Hg] CHITO GALINDO-GABRIELA INFECTION CONTROL MANAGER-CONCRETE INSPECTOR [facility] 10-03-2023 13:12-0400 Reason For Taking VItal Signs CHITO MEDLEY-GABRIELA INFECTION CONTROL MANAGER-CONCRETE INSPECTOR [facility] 10-03-2023 11:39-0400 Body temperature 98.24 [degF] CHITO GALINDO-GABRIELA INFECTION CONTROL MANAGER-CONCRETE INSPECTOR [facility] 10-03-2023 11:39-0400 Diastolic Blood Pressure Non-Invasive 66 mm[Hg] CHITO MEDLEY-GABRIELA INFECTION CONTROL MANAGER-CONCRETE INSPECTOR [facility] 10-03-2023 11:39-0400 Heart rate 80 /min CHITO GALINDOFedericoGABRIELA INFECTION CONTROL MANAGER-CONCRETE INSPECTOR [facility] 10-03-2023 11:39-0400 Reason For Taking VItal Signs CHITO MEDLEYFedericoGABRIELA INFECTION CONTROL MANAGER-CONCRETE INSPECTOR [facility] 10-03-2023 11:39-0400 Respiratory rate 18 /min CHITO MEDLEYFedericoGABRIELA INFECTION CONTROL MANAGER-CONCRETE INSPECTOR [facility] 10-03-2023 11:39-0400 Systolic Blood Pressure Non-Invasive 112 mm[Hg] CHITO GALINDO-GABRIELA INFECTION CONTROL MANAGER-CONCRETE INSPECTOR [facility] 10-03-2023 08:27-0400 Heart rate 79 /min CHITO GALINDO-GABRIELA INFECTION CONTROL MANAGER-CONCRETE INSPECTOR [facility] 10-03-2023 06:05-0400 Body temperature 97.88 [degF] CHITO MEDLEY-GABRIELA INFECTION CONTROL MANAGER-CONCRETE INSPECTOR [facility] 10-03-2023 06:05-0400 Diastolic Blood Pressure Non-Invasive 76 mm[Hg] CHITO MEDLEY-GABRIELA INFECTION CONTROL MANAGER-CONCRETE INSPECTOR [facility] 10-03-2023 06:05-0400 Heart rate 71 /min CHITO MEDLEY-GABRIELA INFECTION CONTROL MANAGER-CONCRETE INSPECTOR [facility] 10-03-2023 06:05-0400 Respiratory rate 18 /min CHITO MEDLEY-GABRIELA INFECTION CONTROL MANAGER-CONCRETE INSPECTOR [facility] 10-03-2023 06:05-0400 Systolic Blood Pressure Non-Invasive 112 mm[Hg] CHITO MEDLEY-GABRIELA INFECTION CONTROL MANAGER-CONCRETE INSPECTOR [address] [place] [address] 10-02-2023 08:45-0400 Heart rate 76 /min CHITO [employer]LEY[employer] IN[employer]CTION [employer]OL MANAGER-CONCRETE INSPECTOR [address] [place] [address] 10-02-2023 03:49-0400 Heart rate 85 /min CHITO MEDLEY-GABRIELA INFECTION CONTROL MANAGER-CONCRETE INSPECTOR [address] [place] [address] 10-02-2023 01:23-0400 Body height 175.3 cm CHITO MEDLEY-GABRIELA INFECTION CONTROL MANAGER-CONCRETE INSPECTOR [address] [place] [address] 10-02-2023 01:23-0400 Body weight 144.7 kg CHITO MEDLEY-GABRIELA INFECTION CONTROL MANAGER-CONCRETE INSPECTOR [address] [place] [address] 10-02-2023 01:23-0400 Body weight 47.09 kg/m2 CHITO GALINDO-GABRIELA INFECTION CONTROL MANAGER-CONCRETE INSPECTOR [address] [place] [address] 10-02-2023 01:17-0400 Heart rate 71 /min CHITO MEDLEY-GABRIELA INFECTION CONTROL MANAGER-CONCRETE INSPECTOR [address] [place] [address] 10-02-2023 00:30-0400 Heart rate 82 /min CHITO MEDLEY-GABRIELA INFECTION CONTROL MANAGER-CONCRETE INSPECTOR [facility] 07-17-2023 15:35-0400 Body temperature 98.2 [degF] Dr. Radha Khan Work Phone: [facility] 07-17-2023 15:35-0400 Body weight 146.[address] Radha Khan Work Phone: [facility] 07-17-2023 15:35-0400 Diastolic blood pressure 67 mm[Hg] Dr. Radha Khan Work Phone: [facility] 07-17-2023 15:35-0400 Heart rate 80 /min Dr. Radha Khan Work Phone: [facility] 07-17-2023 15:35-0400 Respiratory rate 16 /min Dr. Radha Khan Work Phone: [facility] 07-17-2023 15:35-0400 SaO2% (BldA) [Mass fraction] 95 % Dr. Radha Khan Work Phone: [facility] 07-17-2023 15:35-0400 Systolic blood pressure 121 mm[Hg] Dr. Radha Khan Work Phone: 9(342)889-764990 [place] [address] 07-03-2023 11:02-0400 Body height 175.[address] Radha Khan Work Phone: [facility] 07-03-2023 11:02-0400 Body mass index (BMI) [Ratio] 48.1 kg/m2 Dr. Radha Kahn Work Phone: [facility] 07-03-2023 11:02-0400 Body weight 147.[address] Radha Khan Work Phone: [facility] 07-03-2023 11:02-0400 Respiratory rate 16 /min Dr. Radha Khan Work Phone: [facility] 05-21-2023 14:43-0500 Body height 175.[address] Radha Khan Work Phone: 9(063)464-498590 [place] [address] 05-21-2023 14:43-0500 Body mass index (BMI) [Ratio] 48.1 kg/m2 Dr. Radha Khan Work Phone: [facility] 05-21-2023 14:43-0500 Body temperature 97.6 [degF] Dr. Radha Khan Work Phone: [facility] 05-21-2023 14:43-0500 Body weight 147.[address] Radha Khan Work Phone: [facility] 05-21-2023 14:43-0500 Diastolic blood pressure 81 mm[Hg] Dr. Radha Khan Work Phone: [facility] 05-21-2023 14:43-0500 Heart rate 83 /min Dr. Radha Khan Work Phone: [facility] 05-21-2023 14:43-0500 Respiratory rate 18 /min Dr. Radha Khan Work Phone: [facility] 05-21-2023 14:43-0500 SaO2% (BldA) [Mass fraction] 97 % Dr. Radha Khan Work Phone: [facility] 05-21-2023 14:43-0500 Systolic blood pressure 121 mm[Hg] Dr. Radha Khan Work Phone: [facility] 05-20-2023 13:21-0500 Body mass index (BMI) [Ratio] 48.3 kg/m2 Dr. Radha Khan Work Phone: [facility] 05-20-2023 13:21-0500 Body temperature 98.6 [degF] Dr. Radha Khan Work Phone: [facility] 05-20-2023 13:21-0500 Body weight 148.[address] Radha Khan Work Phone: [facility] 05-20-2023 13:21-0500 Diastolic blood pressure 68 mm[Hg] Dr. Radha Khan Work Phone: [facility] 05-20-2023 13:21-0500 Heart rate 76 /min Dr. Radha Khan Work Phone: [facility] 05-20-2023 13:21-0500 Respiratory rate 16 /min Dr. Radha Khan Work Phone: [facility] 05-20-2023 13:21-0500 SaO2% (BldA) [Mass fraction] 98 % Dr. Radha Khan Work Phone: [facility] 05-20-2023 13:21-0500 Systolic blood pressure 102 mm[Hg] Dr. Radha Khan Work Phone: [facility] 03-12-2023 12:03-0500 Diastolic blood pressure 72 mm[Hg] Dr. Radha Khan Work Phone: [facility] 03-12-2023 12:03-0500 Heart rate 101 /min Dr. Radha Khan Work Phone: [facility] 03-12-2023 12:03-0500 Systolic blood pressure 96 mm[Hg] Dr. Radha Khan Work Phone: [facility] 03-12-2023 08:59-0500 Body height 175.[address] Radha Khan Work Phone: [facility] 03-12-2023 08:59-0500 Body mass index (BMI) [Ratio] 47.1 kg/m2 Dr. Radha Khan Work Phone: [facility] 03-12-2023 08:59-0500 Body temperature 97.7 [degF] Dr. Radha Kahn Work Phone: [facility] 03-12-2023 08:59-0500 Body weight 144.[address] Radha Khan Work Phone: [facility] 03-12-2023 08:59-0500 Respiratory rate 17 /min Dr. Radha Khan Work Phone: [facility] 03-12-2023 08:59-0500 SaO2% (BldA) [Mass fraction] 97 % Dr. Radha Khan Work Phone: [facility] 02-27-2023 10:43-0500 Body height 175.[address] Radha Khan Work Phone: [facility] 02-27-2023 10:43-0500 Body mass index (BMI) [Ratio] 46.9 kg/m2 Dr. Radha Khan Work Phone: [facility] 02-27-2023 10:43-0500 Body weight 144.[address] Radha Khan Work Phone: [facility] 02-27-2023 10:43-0500 Diastolic blood pressure 71 mm[Hg] Dr. Radha Khan Work Phone: [facility] 02-27-2023 10:43-0500 Heart rate 73 /min Dr. Radha Khan Work Phone: [facility] 02-27-2023 10:43-0500 Respiratory rate 20 /min Dr. Radha Khan Work Phone: [facility] 02-27-2023 10:43-0500 SaO2% (BldA) [Mass fraction] 100 % Dr. Radha Khan Work Phone: [facility] 02-27-2023 10:43-0500 Systolic blood pressure 103 mm[Hg] Dr. Radha Khan Work Phone: [facility] 02-18-2023 11:05-0500 Body temperature 97.8 [degF] Dr. Radha Khan Work Phone: [facility] 02-18-2023 11:05-0500 Diastolic blood pressure 63 mm[Hg] Dr. Radha Khan Work Phone: [facility] 02-18-2023 11:05-0500 Heart rate 69 /min Dr. Radha Khan Work Phone: [facility] 02-18-2023 11:05-0500 Respiratory rate 16 /min Dr. Radha Khan Work Phone: [facility] 02-18-2023 11:05-0500 SaO2% (BldA) [Mass fraction] 96 % Dr. Radha Khan Work Phone: [facility] 02-18-2023 11:05-0500 Systolic blood pressure 132 mm[Hg] Dr. Radha Khan Work Phone: [facility] 02-18-2023 09:54-0500 Body height 175.[address] Radha Khan Work Phone: [facility] 02-18-2023 09:54-0500 Body mass index (BMI) [Ratio] 47.5 kg/m2 Dr. Radha Khan Work Phone: [facility] 02-18-2023 09:54-0500 Body weight [address] Radha Khan Work Phone: 4(168)255-839226 [address] 02-04-2023 13:15-0500 Body mass index (BMI) [Ratio] 48.2 kg/m2 Dr. Radha Khan Work Phone: 9(176)697-571290 [place] [address] 02-04-2023 13:15-0500 Body temperature 98 [degF] Dr. Radha Khan Work Phone: [facility] 02-04-2023 13:15-0500 Body weight 148.[address] Radha Khan Work Phone: [facility] 02-04-2023 13:15-0500 Diastolic blood pressure 62 mm[Hg] Dr. Radha Khan Work Phone: 4(641)899-295090 [place] [address] 02-04-2023 13:15-0500 Heart rate 80 /min Dr. Radha Khan Work Phone: [facility] 02-04-2023 13:15-0500 Respiratory rate 18 /min Dr. Radha Khan Work Phone: [facility] 02-04-2023 13:15-0500 SaO2% (BldA) [Mass fraction] 98 % Dr. Radha Khan Work Phone: [facility] 02-04-2023 13:15-0500 Systolic blood pressure 100 mm[Hg] Dr. Radha Khan Work Phone: 9(471)498-165790 [place] [address] 01-01-2023 14:11-0400 Body height 175.[address] Radha Khan Work Phone: 9(098)387-957390 [place] [address] 01-01-2023 14:11-0400 Body mass index (BMI) [Ratio] 47.8 kg/m2 Dr. Radha Khan Work Phone: 9(192)193-913490 [place] [address] 01-01-2023 14:11-0400 Body temperature 97.3 [degF] Dr. Radha Khan Work Phone: 1(062)051-379090 [place] [address] 01-01-2023 14:11-0400 Body weight 146.[address] Radha Khan Work Phone: 3(897)327-544934 [place] [address] 01-01-2023 14:11-0400 Diastolic blood pressure 67 mm[Hg] Dr. Radha Khan Work Phone: 7(819)648-142434 [place] [address] 01-01-2023 14:11-0400 Heart rate 75 /min Dr. Radha Khan Work Phone: 9(674)903-263634 [place] [address] 01-01-2023 14:11-0400 Respiratory rate 17 /min Dr. Radha Khan Work Phone: 3(319)410-989190 [place] [address] 01-01-2023 14:11-0400 SaO2% (BldA) [Mass fraction] 98 % Dr. Radha Khan Work Phone: 1(970)369-213190 [place] [address] 01-01-2023 14:11-0400 Systolic blood pressure 106 mm[Hg] Dr. Radha Khan Work Phone: 5(250)113-690690 [place] [address] 12-10-2022 11:33-0400 Body mass index (BMI) [Ratio] 47.8 kg/m2 Dr. Radha Khan Work Phone: 6(395)550-628090 [place] [address] 12-10-2022 11:33-0400 Body temperature 98.3 [degF] Dr. Radha Khan Work Phone: 5(793)453-245190 [place] [address] 12-10-2022 11:33-0400 Body weight 146.[address] Radha Khan Work Phone: 0(293)791-834590 [place] [address] 12-10-2022 11:33-0400 Diastolic blood pressure 70 mm[Hg] Dr. Radha Khan Work Phone: [facility] 12-10-2022 11:33-0400 Heart rate 72 /min Dr. Radha Khan Work Phone: [facility] 12-10-2022 11:33-0400 Respiratory rate 16 /min Dr. Radha Khan Work Phone: [facility] 12-10-2022 11:33-0400 SaO2% (BldA) [Mass fraction] 96 % Dr. Radha Khan Work Phone: 8(674)374-072190 [place] [address] 12-10-2022 11:33-0400 Systolic blood pressure 118 mm[Hg] Dr. Radha Khan Work Phone: 1(257)735-944690 [place] [address] 10-08-2022 14:22-0400 Diastolic blood pressure 72 mm[Hg] Dr. Radha Khan Work Phone: 3(594)826-504290 [place] [address] 10-08-2022 14:22-0400 Systolic blood pressure 107 mm[Hg] Dr. Radha Khan Work Phone: 3(648)408-590490 [place] [address] 09-03-2022 13:57-0400 Body height 175.[address] Radha Khan Work Phone: [facility] 09-03-2022 13:57-0400 Body mass index (BMI) [Ratio] 47 kg/m2 Dr. Radha Khan Work Phone: [facility] 09-03-2022 13:57-0400 Body temperature 98.6 [degF] Dr. Radha Khan Work Phone: 8(828)379-739990 [place] [address] 09-03-2022 13:57-0400 Body weight 144.[address] Radha Khan Work Phone: [facility] 09-03-2022 13:57-0400 Diastolic blood pressure 56 mm[Hg] Dr. Radha Khan Work Phone: [facility] 09-03-2022 13:57-0400 Heart rate 62 /min Dr. Radha Khan Work Phone: [facility] 09-03-2022 13:57-0400 Respiratory rate 16 /min Dr. Radha Khan Work Phone: [facility] 09-03-2022 13:57-0400 SaO2% (BldA) [Mass fraction] 94 % Dr. Radha Khan Work Phone: [facility] 09-03-2022 13:57-0400 Systolic blood pressure 90 mm[Hg] Dr. Radha Khan Work Phone: [facility] 08-03-2022 15:30-0400 Body mass index (BMI) [Ratio] 45.4 kg/m2 Dr. Radha Khan Work Phone: [facility] 08-03-2022 15:20-0400 Body temperature 97.9 [degF] Dr. Radha Kahn Work Phone: [facility] 08-03-2022 15:20-0400 Diastolic blood pressure 78 mm[Hg] Dr. Radha Khan Work Phone: [facility] 08-03-2022 15:20-0400 Heart rate 107 /min Dr. Radha Khan Work Phone: [facility] 08-03-2022 15:20-0400 Respiratory rate 16 /min Dr. Radha Khan Work Phone: [facility] 08-03-2022 15:20-0400 SaO2% (BldA) [Mass fraction] 97 % Dr. Radha Khan Work Phone: [facility] 08-03-2022 15:20-0400 Systolic blood pressure 144 mm[Hg] Dr. Radha Khan Work Phone: [facility] 08-03-2022 05:22-0400 Body mass index (BMI) [Ratio] 45.4 kg/m2 Dr. Radha Khan Work Phone: [facility] 08-03-2022 05:22-0400 Body weight 139.[address] Radha Khan Work Phone: [facility] 08-02-2022 10:53-0400 Body height 175.[address] Radha Khan Work Phone: [facility] 06-18-2022 14:14-0400 Body height 175.[address] Radha Khan Work Phone: [facility] 06-18-2022 14:14-0400 Body mass index (BMI) [Ratio] 45.8 kg/m2 Dr. Radha Khan Work Phone: [facility] 06-18-2022 14:14-0400 Body temperature 96.7 [degF] Dr. Radha Khan Work Phone: [facility] 06-18-2022 14:14-0400 Body weight 140.[address] Radha Khan Work Phone: [facility] 06-18-2022 14:14-0400 Diastolic blood pressure 70 mm[Hg] Dr. Radha Khan Work Phone: [facility] 06-18-2022 14:14-0400 Heart rate 81 /min Dr. Radha Khan Work Phone: [facility] 06-18-2022 14:14-0400 Respiratory rate 18 /min Dr. Radha Khan Work Phone: [facility] 06-18-2022 14:14-0400 SaO2% (BldA) [Mass fraction] 98 % Dr. Radha Khan Work Phone: [facility] 06-18-2022 14:14-0400 Systolic blood pressure 110 mm[Hg] Dr. Radha Khan Work Phone: [facility] 06-12-2022 07:50-0400 Body mass index (BMI) [Ratio] 45.8 kg/m2 Dr. Radha Khan Work Phone: [facility] 06-12-2022 07:50-0400 Body temperature 97.3 [degF] Dr. Radha Khan Work Phone: [facility] 06-12-2022 07:50-0400 Body weight 140.[address] Radha Khan Work Phone: [facility] 06-12-2022 07:50-0400 Diastolic blood pressure 72 mm[Hg] Dr. Radha Khan Work Phone: [facility] 06-12-2022 07:50-0400 Heart rate 83 /min Dr. Radha Khan Work Phone: [facility] 06-12-2022 07:50-0400 Respiratory rate 18 /min Dr. Radha Khan Work Phone: [facility] 06-12-2022 07:50-0400 SaO2% (BldA) [Mass fraction] 97 % Dr. Radha Khan Work Phone: [facility] 06-12-2022 07:50-0400 Systolic blood pressure 115 mm[Hg] Dr. Radha Khan Work Phone: [facility] 05-21-2022 15:09-0500 Diastolic blood pressure 80 mm[Hg] Dr. Radha Khan Work Phone: [facility] 05-21-2022 15:09-0500 Systolic blood pressure 130 mm[Hg] Dr. Radha Khan Work Phone: [facility] 05-21-2022 15:09-0500 Body mass index (BMI) [Ratio] 45.6 kg/m2 Dr. Radha Khan Work Phone: [facility] 05-21-2022 15:09-0500 Body weight 140.[address] Radha Khan Work Phone: [facility] 05-21-2022 15:09-0500 Heart rate 80 /min Dr. Radha Khan Work Phone: [facility] 05-21-2022 15:09-0500 Respiratory rate 18 /min Dr. Radha Khan Work Phone: [facility] 05-21-2022 15:09-0500 SaO2% (BldA) [Mass fraction] 94 % Dr. Radha Khan Work Phone: [facility] 05-09-2022 08:42-0500 Body height 175.[address] Radha Khan Work Phone: 1(345)977-286490 [place] [address] 05-09-2022 08:42-0500 Body weight 136.[address] Radha Khan Work Phone: 1(596)351-337426 [address] 05-08-2022 08:18-0500 Body mass index (BMI) [Ratio] 44.6 kg/m2 Dr. Radha Khan Work Phone: 4(107)903-599426 [address] 05-03-2022 08:34-0500 Body mass index (BMI) [Ratio] 44.6 kg/m2 Dr. Radha Khan Work Phone: 1(737)555-839826 [address] 05-03-2022 08:34-0500 Body weight 136.[address] Radha Khan Work Phone: 5(708)752-632434 [place] [address] 05-03-2022 08:34-0500 Diastolic blood pressure 84 mm[Hg] Dr. Radha Khan Work Phone: 3(998)395-633290 [place] [address] 05-03-2022 08:34-0500 Heart rate 92 /min Dr. Radha Khan Work Phone: 6(366)296-545590 [place] [address] 05-03-2022 08:34-0500 Respiratory rate 20 /min Dr. Radha Khan Work Phone: 7(808)641-277990 [place] [address] 05-03-2022 08:34-0500 SaO2% (BldA) [Mass fraction] 95 % Dr. Radha Khan Work Phone: 3(451)372-082690 [place] [address] 05-03-2022 08:34-0500 Systolic blood pressure 143 mm[Hg] Dr. Radha Khan Work Phone: 3(078)694-238826 [address] 03-12-2022 10:43-0500 Body height 175.[address] Radha Khan Work Phone: [facility] 03-12-2022 10:43-0500 Body mass index (BMI) [Ratio] 45.6 kg/m2 Dr. Radha Khan Work Phone: [facility] 03-12-2022 10:43-0500 Body temperature 97.2 [degF] Dr. Radha Khan Work Phone: [facility] 03-12-2022 10:43-0500 Body weight 140.[address] Radha Khan Work Phone: [facility] 03-12-2022 10:43-0500 Diastolic blood pressure 59 mm[Hg] Dr. Radha Khan Work Phone: [facility] 03-12-2022 10:43-0500 Heart rate 78 /min Dr. Radha Khan Work Phone: [facility] 03-12-2022 10:43-0500 Respiratory rate 18 /min Dr. Radha Khan Work Phone: [facility] 03-12-2022 10:43-0500 SaO2% (BldA) [Mass fraction] 92 % Dr. Radha Khan Work Phone: [facility] 03-12-2022 10:43-0500 Systolic blood pressure 92 mm[Hg] Dr. Radha Khan Work Phone: [facility] 02-19-2022 08:31-0500 Body height 175.[address] Radha Khan Work Phone: [facility] Work Phone: 02-19-2022 08:31-0500 Body mass index (BMI) [Ratio] 45.8 kg/m2 Dr. Radha Khan Work Phone: [facility] 02-19-2022 08:31-0500 Body weight 140.[address] Radha Khan Work Phone: [facility] 02-19-2022 08:31-0500 Diastolic blood pressure 64 mm[Hg] Dr. Radha Khan Work Phone: [facility] 02-19-2022 08:31-0500 Heart rate 68 /min Dr. Radha Khan Work Phone: [facility] 02-19-2022 08:31-0500 Respiratory rate 18 /min Dr. Radha Khan Work Phone: [facility] 02-19-2022 08:31-0500 Systolic blood pressure 125 mm[Hg] Dr. Radha Khan Work Phone: [facility] 02-16-2022 12:47-0500 Body weight 136.[address] Radha Khan Work Phone: [facility] 02-16-2022 12:47-0500 Heart rate 77 /min Dr. Radha Khan Work Phone: [facility] 02-16-2022 12:47-0500 Inhaled oxygen flow rate 2 L/min Dr. Radha Khan Work Phone: [facility] 02-16-2022 12:47-0500 SaO2% (BldA) [Mass fraction] 98 % Dr. Radha Khan Work Phone: [facility] 02-12-2022 08:54-0500 Body mass index (BMI) [Ratio] 44.6 kg/m2 Dr. Radha Khan Work Phone: [facility] 02-12-2022 08:54-0500 Body temperature 98.2 [degF] Dr. Radha Khan Work Phone: [facility] 02-12-2022 08:54-0500 Body weight 137.[address] Radha Khan Work Phone: [facility] 02-12-2022 08:54-0500 Diastolic blood pressure 78 mm[Hg] Dr. Radha Khan Work Phone: [facility] 02-12-2022 08:54-0500 Heart rate 69 /min Dr. Radha Khan Work Phone: [facility] 02-12-2022 08:54-0500 Respiratory rate 18 /min Dr. Radha Khan Work Phone: [facility] 02-12-2022 08:54-0500 SaO2% (BldA) [Mass fraction] 98 % Dr. Radha Khan Work Phone: [facility] 02-12-2022 08:54-0500 Systolic blood pressure 122 mm[Hg] Dr. Radha Khan Work Phone: [facility] 01-15-2022 10:51-0400 Body mass index (BMI) [Ratio] 45.5 kg/m2 Dr. Radha Khan Work Phone: 2(520)287-134990 [place] [address] 01-15-2022 10:51-0400 Body temperature 97 [degF] Dr. Radha Khan Work Phone: 2(535)532-873890 [place] [address] 01-15-2022 10:51-0400 Body weight 139.[address] Radha Khan Work Phone: 2(688)820-150990 [place] [address] 01-15-2022 10:51-0400 Diastolic blood pressure 76 mm[Hg] Dr. Radha Khan Work Phone: [facility] 01-15-2022 10:51-0400 Heart rate 76 /min Dr. Radha Khan Work Phone: [facility] 01-15-2022 10:51-0400 Respiratory rate 18 /min Dr. Radha Khan Work Phone: [facility] 01-15-2022 10:51-0400 SaO2% (BldA) [Mass fraction] 93 % Dr. Radha Khan Work Phone: [facility] 01-15-2022 10:51-0400 Systolic blood pressure 124 mm[Hg] Dr. Radha Khan Work Phone: [facility] 11-13-2021 15:28-0400 Body mass index (BMI) [Ratio] 44.6 kg/m2 Dr. Radha Khan Work Phone: [facility] Work Phone: 11-13-2021 15:28-0400 Body weight 136.[address] Radha Khan Work Phone: [facility] Work Phone: 11-13-2021 15:28-0400 Diastolic blood pressure 64 mm[Hg] Dr. Radha Khan Work Phone: [facility] Work Phone: 11-13-2021 15:28-0400 Heart rate 79 /min Dr. Radha Khan Work Phone: [facility] Work Phone: 11-13-2021 15:28-0400 Respiratory rate 18 /min Dr. Radha Khan Work Phone: [facility] Work Phone: 11-13-2021 15:28-0400 Systolic blood pressure 110 mm[Hg] Dr. Radha Khan Work Phone: [facility] Work Phone: 09-07-2021 14:21-0400 Body height 175.[address] Radha Khan Work Phone: [facility] Work Phone: 09-07-2021 14:21-0400 Body mass index (BMI) [Ratio] 45 kg/m2 Dr. Radha Khan Work Phone: [facility] Work Phone: 09-07-2021 14:21-0400 Body weight 138.[address] Radha Khan Work Phone: [facility] Work Phone: 09-07-2021 14:21-0400 Diastolic blood pressure 79 mm[Hg] Dr. Radha Khan Work Phone: [facility] Work Phone: 09-07-2021 14:21-0400 Heart rate 79 /min Dr. Radha Khan Work Phone: [facility] Work Phone: 09-07-2021 14:21-0400 Respiratory rate 18 /min Dr. Rdaha Khan Work Phone: [facility] Work Phone: 09-07-2021 14:21-0400 SaO2% (BldA) [Mass fraction] 96 % Dr. Radha Khan Work Phone: [facility] Work Phone: 09-07-2021 14:21-0400 Systolic blood pressure 153 mm[Hg] Dr. Radha Khan Work Phone: [facility] Work Phone: 09-04-2021 10:10-0400 Diastolic blood pressure 82 mm[Hg] Dr. Radha Khan Work Phone: [facility] Work Phone: 09-04-2021 10:10-0400 Systolic blood pressure 172 mm[Hg] Dr. Radha Khan Work Phone: [facility] Work Phone: 09-04-2021 09:10-0400 Heart rate 78 /min Dr. Radha Khan Work Phone: [facility] Work Phone: 09-04-2021 09:10-0400 SaO2% (BldA) [Mass fraction] 95 % Dr. Radha Khan Work Phone: [facility] Work Phone: 09-04-2021 08:44-0400 Respiratory rate 16 /min Dr. Radha Khan Work Phone: [facility] Work Phone: 09-04-2021 06:22-0400 Body height 175.[address] Radha Khan Work Phone: [facility] Work Phone: 09-04-2021 06:22-0400 Body mass index (BMI) [Ratio] 45.1 kg/m2 Dr. Radha Khan Work Phone: [facility] Work Phone: 09-04-2021 06:22-0400 Body temperature 97.4 [degF] Dr. Radha Khan Work Phone: [facility] Work Phone: 09-04-2021 06:22-0400 Body weight 138.[address] Radha Khan Work Phone: [facility] Work Phone: 08-10-2021 13:42-0400 Body mass index (BMI) [Ratio] 44.5 kg/m2 Dr. Radha Khan Work Phone: [facility] Work Phone: 08-10-2021 13:42-0400 Body temperature 95.7 [degF] Dr. Radha Khan Work Phone: [facility] Work Phone: 08-10-2021 13:42-0400 Body weight 136.[address] Radha Khan Work Phone: [facility] Work Phone: 08-10-2021 13:42-0400 Diastolic blood pressure 80 mm[Hg] Dr. Radha Khan Work Phone: [facility] Work Phone: 08-10-2021 13:42-0400 Heart rate 84 /min Dr. Radha Khan Work Phone: [facility] Work Phone: 08-10-2021 13:42-0400 Respiratory rate 18 /min Dr. Radha Khan Work Phone: [facility] Work Phone: 08-10-2021 13:42-0400 SaO2% (BldA) [Mass fraction] 96 % Dr. Radha Khan Work Phone: [facility] Work Phone: 08-10-2021 13:42-0400 Systolic blood pressure 140 mm[Hg] Dr. Radha Khan Work Phone: [facility] Work Phone: 08-10-2021 13:42-0400 Body height 175.[address] Radha Khan Work Phone: [facility] Work Phone: 08-10-2021 13:42-0400 Body mass index (BMI) [Ratio] 44.5 kg/m2 Dr. Radha Khan Work Phone: [facility] Work Phone: 08-10-2021 13:42-0400 Body temperature 95.7 [degF] Dr. Radha Khan Work Phone: [facility] Work Phone: 08-10-2021 13:42-0400 Body weight 136.[address] Radha Khan Work Phone: [facility] Work Phone: 08-10-2021 13:42-0400 Diastolic blood pressure 80 mm[Hg] Dr. Radha Khan Work Phone: [facility] Work Phone: 08-10-2021 13:42-0400 Heart rate 84 /min Dr. Radha Khan Work Phone: [facility] Work Phone: 08-10-2021 13:42-0400 Respiratory rate 18 /min Dr. Radha Khan Work Phone: [facility] Work Phone: 08-10-2021 13:42-0400 SaO2% (BldA) [Mass fraction] 96 % Dr. Radha Khan Work Phone: [facility] Work Phone: 08-10-2021 13:42-0400 Systolic blood pressure 140 mm[Hg] Dr. Radha Khan Work Phone: [facility] Work Phone: 07-16-2021 16:25-0400 Body temperature 98.7 [degF] Dr. Radha Khan Work Phone: [facility] Work Phone: 07-16-2021 16:25-0400 Diastolic blood pressure 75 mm[Hg] Dr. Radha Khan Work Phone: [facility] Work Phone: 07-16-2021 16:25-0400 Heart rate 73 /min Dr. Radha Khan Work Phone: [facility] Work Phone: 07-16-2021 16:25-0400 Respiratory rate 18 /min Dr. Rahda Khan Work Phone: [facility] Work Phone: 07-16-2021 16:25-0400 SaO2% (BldA) [Mass fraction] 99 % Dr. Radha Khan Work Phone: [facility] Work Phone: 07-16-2021 16:25-0400 Systolic blood pressure 155 mm[Hg] Dr. Radha Khan Work Phone: [facility] Work Phone: 07-16-2021 14:17-0400 Body height 175.[address] Radha Khan Work Phone: [facility] Work Phone: 07-16-2021 14:17-0400 Body mass index (BMI) [Ratio] 44.9 kg/m2 Dr. Radha Khan Work Phone: [facility] Work Phone: 07-16-2021 14:17-0400 Body weight [address] Radha Khan Work Phone: [facility] Work Phone: 07-13-2021 10:31-0400 Body mass index (BMI) [Ratio] 44.4 kg/m2 Dr. Radha Khan Work Phone: [facility] Work Phone: 07-13-2021 10:31-0400 Body temperature 98.2 [degF] Dr. Radha Khan Work Phone: [facility] Work Phone: 07-13-2021 10:31-0400 Body weight 136.[address] Radha Khan Work Phone: [facility] Work Phone: 07-13-2021 10:31-0400 Diastolic blood pressure 72 mm[Hg] Dr. Radha Khan Work Phone: [facility] Work Phone: 07-13-2021 10:31-0400 Heart rate 73 /min Dr. Radha Khan Work Phone: [facility] Work Phone: 07-13-2021 10:31-0400 Respiratory rate 17 /min Dr. Radha Khan Work Phone: [facility] Work Phone: 07-13-2021 10:31-0400 SaO2% (BldA) [Mass fraction] 99 % Dr. Radha Khan Work Phone: [facility] Work Phone: 07-13-2021 10:31-0400 Systolic blood pressure 115 mm[Hg] Dr. Radha Khan Work Phone: [facility] Work Phone: 07-13-2021 10:31-0400 Body mass index (BMI) [Ratio] 44.4 kg/m2 Dr. Radha Khan Work Phone: [facility] Work Phone: 07-13-2021 10:31-0400 Body temperature 98.2 [degF] Dr. Radha Khan Work Phone: [facility] Work Phone: 07-13-2021 10:31-0400 Body weight 136.[address] Radha Khan Work Phone: [facility] Work Phone: 07-13-2021 10:31-0400 Diastolic blood pressure 72 mm[Hg] Dr. Radha Khan Work Phone: [facility] Work Phone: 07-13-2021 10:31-0400 Heart rate 73 /min Dr. Radha Khan Work Phone: [facility] Work Phone: 07-13-2021 10:31-0400 Respiratory rate 17 /min Dr. Radha Khan Work Phone: [facility] Work Phone: 07-13-2021 10:31-0400 SaO2% (BldA) [Mass fraction] 99 % Dr. Radha Khan Work Phone: [facility] Work Phone: 07-13-2021 10:31-0400 Systolic blood pressure 115 mm[Hg] Dr. Radha Khan Work Phone: [facility] Work Phone: 07-12-2021 12:50-0400 Body weight 136.[address] Radha Khan Work Phone: [facility] Work Phone: 07-12-2021 12:50-0400 Diastolic blood pressure 83 mm[Hg] Dr. Radha Khan Work Phone: [facility] Work Phone: 07-12-2021 12:50-0400 Heart rate 72 /min Dr. Radha Khan Work Phone: [facility] Work Phone: 07-12-2021 12:50-0400 Respiratory rate 18 /min Dr. Radha Khan Work Phone: [facility] Work Phone: 07-12-2021 12:50-0400 SaO2% (BldA) [Mass fraction] 100 % Dr. Radha Khan Work Phone: [facility] Work Phone: 07-12-2021 12:50-0400 Systolic blood pressure 148 mm[Hg] Dr. Radha Khan Work Phone: [facility] Work Phone: 07-12-2021 12:50-0400 Body weight 136.[address] Radha Khan Work Phone: [facility] Work Phone: 07-12-2021 12:50-0400 Diastolic blood pressure 83 mm[Hg] Dr. Radha Khan Work Phone: [facility] Work Phone: 07-12-2021 12:50-0400 Heart rate 72 /min Dr. Radha Khan Work Phone: [facility] Work Phone: 07-12-2021 12:50-0400 Respiratory rate 18 /min Dr. Radha Khan Work Phone: [facility] Work Phone: 07-12-2021 12:50-0400 SaO2% (BldA) [Mass fraction] 100 % Dr. Radha Khan Work Phone: [facility] Work Phone: 07-12-2021 12:50-0400 Systolic blood pressure 148 mm[Hg] Dr. Radha Khan Work Phone: [facility] Work Phone: 06-29-2021 13:09-0400 Body mass index (BMI) [Ratio] 43.6 kg/m2 Dr. Radha Khan Work Phone: [facility] Work Phone: 06-29-2021 13:09-0400 Body temperature 96.9 [degF] Dr. Radha Khan Work Phone: [facility] Work Phone: 06-29-2021 13:09-0400 Body weight 133.[address] Radha Khan Work Phone: [facility] Work Phone: 06-29-2021 13:09-0400 Diastolic blood pressure 76 mm[Hg] Dr. Radha Khan Work Phone: [facility] Work Phone: 06-29-2021 13:09-0400 Heart rate 98 /min Dr. Radha Khan Work Phone: [facility] Work Phone: 06-29-2021 13:09-0400 Respiratory rate 18 /min Dr. Radha Khan Work Phone: [facility] Work Phone: 06-29-2021 13:09-0400 SaO2% (BldA) [Mass fraction] 98 % Dr. Radha Khan Work Phone: [facility] Work Phone: 06-29-2021 13:09-0400 Systolic blood pressure 110 mm[Hg] Dr. Radha Khan Work Phone: [facility] Work Phone: 06-29-2021 13:09-0400 Body mass index (BMI) [Ratio] 43.6 kg/m2 Dr. Radha Khan Work Phone: [facility] Work Phone: 06-29-2021 13:09-0400 Body temperature 96.9 [degF] Dr. Radha Khan Work Phone: [facility] Work Phone: 06-29-2021 13:09-0400 Body weight 133.[address] Radha Khan Work Phone: [facility] Work Phone: 06-29-2021 13:09-0400 Diastolic blood pressure 76 mm[Hg] Dr. Radha Khan Work Phone: [facility] Work Phone: 06-29-2021 13:09-0400 Heart rate 98 /min Dr. Radha Khan Work Phone: [facility] Work Phone: 06-29-2021 13:09-0400 Respiratory rate 18 /min Dr. Radha Khan Work Phone: [facility] Work Phone: 06-29-2021 13:09-0400 SaO2% (BldA) [Mass fraction] 98 % Dr. Radha Khan Work Phone: [facility] Work Phone: 06-29-2021 13:09-0400 Systolic blood pressure 110 mm[Hg] Dr. Radha Khan Work Phone: [facility] Work Phone: 06-20-2021 12:08-0400 Heart rate 90 /min Dr. Radha Khan Work Phone: [facility] Work Phone: 06-20-2021 10:32-0400 SaO2% (BldA) [Mass fraction] 95 % Dr. Radha Khan Work Phone: [facility] Work Phone: 06-20-2021 09:00-0400 Body temperature 97.8 [degF] Dr. Radha Khan Work Phone: [facility] Work Phone: 06-20-2021 09:00-0400 Diastolic blood pressure 82 mm[Hg] Dr. Radha Khan Work Phone: [facility] Work Phone: 06-20-2021 09:00-0400 Respiratory rate 18 /min Dr. Radha Khan Work Phone: [facility] Work Phone: 06-20-2021 09:00-0400 Systolic blood pressure 154 mm[Hg] Dr. Radha Khan Work Phone: [facility] Work Phone: 06-20-2021 06:00-0400 Body weight [address] Radha Khan Work Phone: [facility] Work Phone: 06-19-2021 10:46-0400 Body mass index (BMI) [Ratio] 44.3 kg/m2 Dr. Radha Khan Work Phone: [facility] Work Phone: 06-15-2021 14:08-0400 Body weight 139.[address] Radha Khan Work Phone: [facility] Work Phone: 06-15-2021 14:08-0400 Heart rate 84 /min Dr. Radha Khan Work Phone: [facility] Work Phone: 06-15-2021 14:08-0400 SaO2% (BldA) [Mass fraction] 97 % Dr. Radha Khan Work Phone: [facility] Work Phone: 06-01-2021 13:31-0500 Body mass index (BMI) [Ratio] 43.9 kg/m2 Dr. Radha Khan Work Phone: [facility] Work Phone: 06-01-2021 13:31-0500 Body temperature 96.9 [degF] Dr. Radha Khan Work Phone: [facility] Work Phone: 06-01-2021 13:31-0500 Body weight 134.[address] Radha Khan Work Phone: [facility] Work Phone: 06-01-2021 13:31-0500 Diastolic blood pressure 70 mm[Hg] Dr. Radha Khan Work Phone: [facility] Work Phone: 06-01-2021 13:31-0500 Heart rate 78 /min Dr. Radha Khan Work Phone: [facility] Work Phone: 06-01-2021 13:31-0500 Respiratory rate 18 /min Dr. Radha Khan Work Phone: [facility] Work Phone: 06-01-2021 13:31-0500 SaO2% (BldA) [Mass fraction] 100 % Dr. Radha Khan Work Phone: [facility] Work Phone: 06-01-2021 13:31-0500 Systolic blood pressure 110 mm[Hg] Dr. Radha Khan Work Phone: [facility] Work Phone: 06-01-2021 12:31-0500 Body mass index (BMI) [Ratio] 43.9 kg/m2 Dr. Radha Khan Work Phone: [facility] Work Phone: 06-01-2021 12:31-0500 Body temperature 96.9 [degF] Dr. Radha Khan Work Phone: [facility] Work Phone: 06-01-2021 12:31-0500 Body weight 134.[address] Radha Khan Work Phone: [facility] Work Phone: 06-01-2021 12:31-0500 Diastolic blood pressure 70 mm[Hg] Dr. Radha Khan Work Phone: [facility] Work Phone: 06-01-2021 12:31-0500 Heart rate 78 /min Dr. Radha Khan Work Phone: [facility] Work Phone: 06-01-2021 12:31-0500 Respiratory rate 18 /min Dr. Radha Khan Work Phone: [facility] Work Phone: 06-01-2021 12:31-0500 SaO2% (BldA) [Mass fraction] 100 % Dr. Radha Khan Work Phone: [facility] Work Phone: 06-01-2021 12:31-0500 Systolic blood pressure 110 mm[Hg] Dr. Radha Khan Work Phone: [facility] Work Phone: 10-13-2020 15:48-0400 Body mass index (BMI) [Ratio] 45.2 kg/m2 Dr. Radha Khan Work Phone: [facility] Work Phone: 10-13-2020 15:48-0400 Body mass index (BMI) [Ratio] 45.2 kg/m2 Dr. Radha Khan Work Phone: [facility] Work Phone: Encounters Encounter Date Encounter Type Care Provider Facility Start: 09-26-2024 Evaluation and manag ement of inpatient Dr. Xiao Berrios MD -Progressive Care Unit Work Phone: Start: 09-26-[address] Radha Khan MD Work Phone: -[facility] Start: 09-24-2024 End: 09-24-2024 Subsequent hospital visit by physician [facility] [address] Comment on above: Arrived Start: 09-24-2024 End: 09-24-20[facility] Start: 09-24-2024 End: 09-24-2024 Subsequent hospital visit by physician Dick Nguyen MD Work Phone: [facility] Comment on above: ILD (interstitial lavonne ng disease) (Multi) Start: 09-24-2024 End: 09-24-2024 ambulatory FLAretha [facility] Start: 09-16-2024 End: 09-16-2024 Patient encounter procedure Coreen SHELDON -[facility] Work Phone: Start: 09-16-2024 End: 09-16-[address] Radha Khan MD Work Phone: [facility] Work Phone: Start: 09-15-2024 End: 09-15-[address] Toni Vann MD -[facility] Work Phone: Start: 09-15-2024 End: 09-15-[address] Radha Khan MD Work Phone: [facility] Work Phone: Start: 08-28-2024 End: 08-28-2024 Office outpatient visit 40 minutes Rosalino Padron MD Work Phone: [facility] [place] Comment on above: ILD (interstitial lavonne ng disease) (Multi) (Primary Dx); Chronic respiratory failure with hypoxia; KIANNA (obstructive sleep apnea); BMI 40.0-44.9, adult (Multi); Diastolic heart failure, unspecified HF chronicity Start: 08-28-2024 End: 08-28-2024 ambulatory [facility] Start: 08-18-2024 End: 08-18-2024 Subsequent hospital visit by physician Oni Rousseau Pft Rm 2 [facility] [place] Comment on above: ILD (interstitial lavonne ng disease) (Multi) Start: 08-18-2024 End: 08-18-2024 ambulatory [facility] Start: 08-17-2024 End: 08-17-[address] Toni Vann MD -[facility] Work Phone: Start: 08-17-2024 End: 08-17-2024 Dr. Toni Vann MD -[facility] Work Phone: Start: 08-17-2024 End: 08-17-[address] Radha Khan MD Work Phone: [facility] Work Phone: Start: 08-12-2024 End: 08-12-2024 Patient encounter procedure Sumanth Hanna MD -[facility] Work Phone: Start: 08-12-2024 End: 08-12-2024 Sumanth Hanna MD -[facility] Work Phone: Start: 08-12-2024 End: 08-12-[address] Radha Khan MD Work Phone: [facility] Work Phone: Start: 08-12-2024 End: 08-12-2024 ambulatory [facility] Facility:[facility] Start: 08-07-2024 End: 08-07-2024 Office outpatient visit 40 minutes Rosalino Padron MD Work Phone: [facility] [place] Comment on above: ILD (interstitial lavonne ng disease) (Multi) (Primary Dx); Chronic respiratory failure with hypoxia; KIANNA (obstructive sleep apnea); BMI 40.0-44.9, adult (Multi); Diastolic heart failure, unspecified HF chronicity Start: 08-07-2024 End: 08-07-2024 ambulatory ROSALINO PADRON [facility] Start: 08-06-2024 End: 08-06-[address] Toni Vann MD -[facility] Work Phone: Start: 08-06-2024 End: 08-06-2024 Dr. Toni Vann MD -[facility] Work Phone: Start: 08-06-2024 End: 08-06-2024 ambulatory Toni Sandersonmeek Facility:[facility] Start: 07-24-2024 End: 07-24-2024 Subsequent hospital visit by physician Clifford kamara Pft Room [facility] Comment on above: ILD (interstitial lavonne ng disease) (Multi) Start: 07-24-2024 End: 07-24-2024 ambulatory [facility] Start: 07-23-2024 End: 07-23-2024 Subsequent hospital visit by physician [facility] Comment on above: Pulmonary hypertensi on (Multi) Start: 07-23-2024 End: 07-23-2024 ambulatory [facility] Start: 07-20-2024 End: 07-20-2024 Subsequent hospital visit by physician Lorenza [address] [facility] Comment on above: ILD (interstitial lavonne ng disease) (Multi) Start: 07-20-2024 End: 07-20-2024 ambulatory [facility] Start: 07-06-2024 End: 07-06-[address] Toni Vann MD -[facility] Work Phone: Start: 07-06-2024 End: 07-06-2024 Dr. Toni Vann MD -[facility] Work Phone: Start: 07-06-2024 End: 07-06-2024 ambulatory Toni Vann Facility:[facility] Start: 06-26-2024 End: 06-26-2024 Office outpatient new 60 minutes Rosalino Padron MD Work Phone: [facility] [place] Comment on above: ILD (interstitial lavonne ng disease) (Multi) (Primary Dx); Pulmonary hypertension (Multi); Chronic respiratory failure with hypoxia (Multi) Start: 06-26-2024 End: 06-26-2024 ambulatory [facility] Start: 06-10-2024 End: 06-10-2024 Patient encounter procedure SAV Rojas -[facility] Work Phone: Start: 06-10-2024 End: 06-10-2024 TEACHER OF THE HANDICAPPED Chen Rojas -[facility] Work Phone: Start: 06-10-2024 End: 06-10-2024 ambulatory Radha Khan Facility[facility] Start: 06-04-2024 End: 06-04-[address] Toni Vann MD -[facility] Work Phone: Start: 06-04-2024 End: 06-04-2024 Dr. Toni Vann MD -[facility] Work Phone: Start: 06-04-2024 End: 06-04-2024 ambulatory Toni Vann Facility:[facility] Start: 06-02-2024 End: 06-02-2024 Patient encounter procedure TEACHER OF THE HANDICAPPED Chen Rojas -Sleep [facility] Work Phone: Start: 06-02-2024 End: 06-02-2024 TEACHER OF THE HANDICAPPED Chen Rojas -Sleep [facility] Work Phone: Start: 06-02-2024 End: 06-02-2024 ambulatory Chen Rojas Facility:[facility] Start: 05-28-2024 Non-patient / Non-visit Dr. Jemima MCRAE -[facility] Work Phone: Start: 05-28-2024 ambulatory Lydia GRIFFITHS Facility:[facility] Start: 05-28-2024 Registered Referred Lydia Segura PA -Cardiovascular Services Work Phone: Start: 05-28-2024 Dr. Sumanth Hanna MD -[facility] Work Phone: Start: 05-21-2024 End: 05-21-2024 Patient encounter procedure Lydia Segura PA -Laboratory Work Phone: Start: 05-21-2024 End: 05-21-2024 Lydia Segura PA -Laboratory Work Phone: Start: 05-21-2024 End: 05-21-2024 Patient encounter procedure Lydia GRIFFITHS -[facility] Work Phone: Start: 05-21-2024 End: 05-21-2024 Lydia GRIFFITHS -[facility] Work Phone: Start: 05-21-2024 End: 05-21-2024 ambulatory Radha S Jolliff Facility:[facility] Start: 05-21-2024 End: 05-21-2024 ambulatory Lydia GRIFFITHS Facility:[facility] Start: 05-08-2024 End: 05-08-2024 Telephone encounter Oziel Culp MD Work Phone: [facility] Start: 05-07-2024 End: 05-08-2024 Orders Only Mey Rodriguezdhiraj INFECTION CONTROL MANAGER - CONCRETE INSPECTOR Work Phone: [facility] Comment on above: Bilateral carotid ar christine stenosis (Primary Dx) Start: 05-06-2024 End: 05-06-2024 Subsequent hospital visit by physician Ach Ecg [facility] Comment on above: Arrived Ischemic cerebrovasc ular accident (CVA) (HCC); Bilateral carotid artery stenosis Start: 05-06-2024 End: 05-06-2024 ambulatory MEY LOYA [facility] Start: 05-05-2024 End: 05-05-2024 Dr. Rito Lundberg MD -[facility] Work Phone: Start: 05-05-2024 End: 05-05-2024 ambulatory Radha S Jolliff Facility:[facility] Start: 05-01-2024 End: 05-01-2024 TEACHER OF THE HANDICAPPED Chen Rojsa -[facility] Work Phone: Start: 05-01-2024 End: 05-01-2024 ambulatory Radha S Jolliff Facility:[facility] Start: 04-30-2024 End: 04-30-2024 Dr. Ochoa Dobbs MD -[facility] Work Phone: Start: 04-30-2024 End: 04-30-2024 ambulatory Radha S Jolliff Facility:[facility] Start: 04-30-2024 End: 04-30-2024 Dr. Toni Vann MD -[facility] Work Phone: Start: 04-30-2024 End: 04-30-2024 ambulatory Toni Vann Facility:[facility] Start: 04-27-2024 End: 04-27-2024 Office outpatient visit 25 minutes Suzy Jauregui MD Work Phone: [facility] [place] Comment on above: Cerebrovascular acci dent (CVA), unspecified mechanism (HCC) (Primary Dx); Bilateral carotid artery stenosis Start: 04-27-2024 End: 04-27-2024 ambulatory [facility] Start: 04-25-2024 Dr. Ochoa Johnson DO -[facility] Work Phone: Start: 04-24-2024 ambulatory Daniel Tarun Facility: [facility] Start: 04-24-2024 End: 04-25-2024 Evaluation and management of inpatient Ochoa Johnson Facility:[facility] Start: 04-24-2024 End: 04-25-2024 Dr. Ochoa Johnson DO -Progressive Care Un it Work Phone: Start: 04-24-2024 End: 04-24-2024 Dr. Radha Khan MD -Laboratory [facility] Start: 04-24-2024 End: 04-24-2024 ambulatory Radha Khan Facility:[facility] Start: 04-23-2024 End: 04-23-2024 Telephone encounter Coreen Clifton RN [facility] Start: 04-22-2024 End: 04-22-2024 SAV Rojas -[facility] Work Phone: Start: 04-22-2024 End: 04-22-2024 ambulatory Chen Rojas Facility:[facility] Start: 04-20-2024 ambulatory Ochoa Dobbs Facility:[facility] Start: 04-16-2024 End: 04-16-2024 Coreen Gerardo TEACHER OF THE HANDICAPPED-C -[facility] Work Phone: Start: 04-16-2024 End: 04-16-2024 ambulatory Radha S Jolliff Facility:[facility] Start: 04-15-2024 Dr. Cuco Soler MD -[facility] Work Phone: Start: 04-14-2024 ambulatory Radha S Jolliff Facility: [facility] Start: 04-13-2024 ambulatory Radha S Jolliff Facility: [facility] Start: 04-12-2024 ambulatory Radha S Jolliff Facility: [facility] Start: 04-12-2024 End: 04-15-2024 Evaluation and management of inpatient Radha S Jolliff Facility:[facility] Start: 04-12-2024 End: 04-15-2024 Dr. Cuco Soler MD -Progressive [facility] Work Phone: Start: 04-09-2024 End: 04-09-2024 ambulatory Radha S Jolliff Facility:[facility] Start: 04-06-2024 End: 04-06-2024 Subsequent hospital visit by physician Suzy Jauregui MD Work Phone: [facility] Comment on above: Bilateral carotid ar christine occlusion Start: 04-06-2024 End: 04-06-2024 ambulatory [facility] Start: 03-30-2024 End: 03-30-2024 ambulatory Radha S Jolliff Facility:[facility] Start: 03-30-2024 ambulatory Radha S Jolliff Facility: [facility] Start: 03-30-2024 End: 03-30-2024 ambulatory Radha S Jolliff Facility:[facility] Start: 03-27-2024 ambulatory Radha S Jolliff Facility: [facility] Start: 03-27-2024 End: 03-27-2024 ambulatory Radha S Jolliff Facility:[facility] Start: 03-23-2024 End: 03-23-2024 ambulatory Radha S Jolliff Facility:[facility] Start: 03-13-2024 End: 03-13-2024 ambulatory Radha S Jolliff Facility:[facility] Start: 03-03-2024 ambulatory Nagrulaadee Deb Fa cility:[facility] Start: 03-02-2024 ambulatory Xiao Berrios Facility:[facility] Start: 03-02-2024 End: 03-04-2024 Evaluation and management of inpatient Xiao Berrios Facility:[facility] Start: 02-26-2024 End: 02-26-2024 Emergency department patient visit Radha Khan Facility:[facility] Start: 02-21-2024 ambulatory Mireya Garcia Fayi ty:[facility] Start: 02-20-2024 End: 02-20-2024 ambulatory Toni Reneemeek Facility:[facility] Start: 02-18-2024 End: 02-18-2024 ambulatory Radha S Samanthalliff Facility:[facility] Start: 02-13-2024 End: 02-13-2024 Orders Only Mey Loya INFECTION CONTROL MANAGER - CONCRETE INSPECTOR Work Phone: [facility] Comment on above: Ischemic cerebrovasc ular accident (CVA) (HCC) (Primary Dx); Bilateral carotid artery stenosis Start: 02-07-2024 End: 02-07-2024 ambulatory Radha S Samanthalliff [facility] Start: 02-06-2024 End: 03-04-2024 Telephone encounter Oziel Culp MD Work Phone: [facility] Clinical Communication Start: 02-06-2024 End: 02-06-2024 Subsequent hospital visit by physician Oziel Culp MD Work Phone: [facility] [address] Comment on above: Arrived Start: 02-06-2024 End: 02-06-[address] [facility] Start: 02-06-2024 End: 02-06-2024 ambulatory Radha S Jolliff Facility:[facility] Start: 02-05-2024 End: 02-05-[address] [facility] Start: 02-03-2024 End: 02-03-2024 ambulatory Radha S Jolliff Facility:[facility] Start: 01-21-2024 End: 01-22-[address] [facility] Start: 01-21-2024 End: 01-22-2024 Evaluation and management of inpatient Eduin Umaña Facility:[facility] Start: 01-20-2024 End: 01-20-2024 ambulatory Toni Reneemeek [facility] Start: 01-16-2024 End: 01-16-2024 Orders Only Mey Loya INFECTION CONTROL MANAGER - CONCRETE INSPECTOR Work Phone: [facility] Endovascular Neurology Comment on above: Chronic kidney disea se, unspecified CKD stage (Primary Dx) Start: 01-10-2024 End: 01-10-2024 ambulatory Radha S Jolliff Facility:[facility] Start: 01-06-2024 End: 01-06-2024 Office outpatient visit 25 minutes Oziel Culp MD Work Phone: [facility] Endovascular Neurology Comment on above: Bilateral carotid ar christine stenosis (Primary Dx); Ischemic cerebrovascular accident (CVA) (HCC) Start: 01-06-2024 End: 01-06-2024 ambulatory OZIEL CULP [facility] Start: 01-01-2024 ambulatory 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 Facility [facility] Start: 01-01-2024 End: 01-01-2024 ambulatory 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 Facility:[facility] Start: 12-26-2023 End: 12-26-2023 ambulatory Radha S Jolliff [facility] Start: 12-19-2023 End: 12-19-2023 ambulatory Toni Badnelson Facility[facility] Start: 12-12-2023 End: 12-12-2023 ambulatory Radah S Jolliff [facility] Start: 12-12-2023 End: 12-12-2023 ambulatory 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 Facility:[facility] Start: 12-06-2023 End: 12-06-2023 ambulatory Radha S Jolliff [facility] Start: 11-27-2023 End: 11-27-2023 ambulatory Radha S Jolliff Facility:[facility] Start: 11-18-2023 End: 11-18-2023 ambulatory Toni Baddomeek Facility:[facility] Start: 11-16-2023 End: 11-16-2023 Emergency department patient visit Armin Fermin Facility:[facility] Start: 11-14-2023 End: 11-14-2023 ambulatory Bethany Shelley Facility:[facility] Start: 11-14-2023 End: 11-14-2023 Evaluation and management of inpatient Edmund Dey Facility:[facility] Start: 11-14-2023 ambulatory Eduin Latif ty:[facility] Start: 11-14-2023 ambulatory Edmund Dey [facility] Start: 11-04-2023 End: 11-04-2023 ambulatory Radha S Jolliff Facility:[facility] Start: 10-30-2023 End: 10-31-2023 ambulatory Radha S Jolliff Facility:[facility] Start: 10-29-2023 End: 10-29-2023 ambulatory Radha S Jolliff Facility:[facility] Start: 10-17-2023 End: 10-17-2023 ambulatory Radha S Jolliff [facility] Start: 10-14-2023 End: 10-14-2023 ambulatory Radha S Jolliff [facility] Start: 10-14-2023 End: 10-14-2023 ambulatory Radha S Jolliff Facility:[facility] Start: 10-08-2023 End: 10-08-2023 ambulatory Bethanyflorentino Shelley Facility:[facility] Start: 10-08-2023 ambulatory Radha S Jolliff [facility]: [facility] Start: 10-03-2023 End: 10-05-2023 Evaluation and management of inpatient Joe Rocha MD Work Phone: [facility] Cardiac Post Intervention Progressive Care Unit CPI PCU 4W Comment on above: Cerebrovascular acci dent (CVA), unspecified mechanism (HCC) (Primary Dx) Start: 10-01-2023 End: 10-03-2023 Evaluation and management of inpatient 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 Radha Khan Work Phone: [facility] Work Phone: Start: 08-05-2023 End: 08-05-[address] Radha Khan Work Phone: [facility]-Laboratory Work Phone: Start: 07-17-2023 End: 07-17-[address] Radha Khan Work Phone: [facility] Vascular Surgery Work Phone: Start: 07-03-2023 End: 07-03-[address] Radha Khan Work Phone: [facility] Work Phone: Start: 06-06-2023 End: 06-06-[address] Radha Khan Work Phone: [facility] Work Phone: Start: 06-06-2023 End: 06-06-[address] Radha Khan Work Phone: [facility] Work Phone: Start: 05-21-2023 End: 05-21-[address] Radha Khan Work Phone: [facility] Work Phone: Start: 05-20-2023 End: 05-20-[address] Radha Khan Work Phone: [facility] Endocrinology Work Phone: Start: 05-01-2023 Non-patient / Non-visit Dr. Armen Khan Work Phone: [facility] Start: 05-01-2023 End: 05-01-[address] Radha Khan Work Phone: [facility] Work Phone: Start: 05-01-2023 End: 05-01-[address] Radha Khan Work Phone: [facility]-Cardiovascula r Services Work Phone: Start: 04-25-2023 End: 04-25-[address] Radha Khan Work Phone: [facility] Work Phone: Start: 04-25-2023 End: 04-25-[address] Radha Khan Work Phone: [facility]-Laboratory Work Phone: Start: 04-25-2023 End: 04-25-[address] Radha Khan Work Phone: [facility] Work Phone: Start: 03-15-2023 Non-patient / Non-visit Dr. Armen Khan Work Phone: [facility] Start: 03-15-2023 End: 03-15-[address] Radha Khan Work Phone: [facility] Work Phone: Start: 03-15-2023 End: 03-15-[address] Radha Khan Work Phone: [facility] Work Phone: Start: 03-12-2023 End: 03-12-[address] Radha Khan Work Phone: [facility] Neurology Work Phone: Start: 02-28-2023 End: 02-28-[address] Radha Khan Work Phone: [facility] Work Phone: Start: 02-28-2023 End: 02-28-[address] [facility] Work Phone: Start: 02-28-2023 End: 02-28-[address] Radha Khan Work Phone: [facility] Work Phone: Start: 02-27-2023 End: 02-27-[address] Radha Khan Work Phone: [facility] Work Phone: Start: 02-26-2023 End: 02-26-[address] Radha Khan Work Phone: [facility] Work Phone: Start: 02-26-2023 End: 02-26-[address] Radha Khan Work Phone: [facility] [place] Work Phone: Start: 02-18-2023 End: 02-18-2023 Admission to same day surgery center Dr. Radha Khan Work Phone: [facility]-Surgical Day Care Start: 02-18-2023 End: 02-18-[address] Radha Khan Work Phone: [facility] Work Phone: Start: 02-04-2023 End: 02-04-[address] Radha Khan Work Phone: [facility] Endocrinology Work Phone: Start: 01-15-2023 End: 01-15-[address] Radha Khan Work Phone: [facility] Work Phone: Start: 01-15-2023 End: 01-15-[address] Radha Khan Work Phone: [facility] [place] Work Phone: Start: 01-07-2023 End: 01-07-[address] Radha Khan Work Phone: [facility] Work Phone: Start: 01-07-2023 End: 01-07-[address] Radha Khan Work Phone: [facility] Work Phone: Start: 01-01-2023 End: 01-01-[address] Radha Khan Work Phone: [facility] Work Phone: Start: 01-01-2023 End: 01-01-[address] Radha Khan Work Phone: [facility]-Laboratory, Specimen Work Phone: Start: 12-31-2022 End: 12-31-[address] Radha Khan Work Phone: [facility] [place] Work Phone: Start: 12-10-2022 End: 12-10-[address] Radha Khan Work Phone: [facility] Endocrinology Work Phone: Start: 11-09-2022 End: 11-09-[address] Radha Khan Work Phone: [facility] Work Phone: Start: 11-09-2022 End: 11-09-[address] Radha Khan Work Phone: [facility] Work Phone: Start: 11-07-2022 End: 11-07-[address] Radha Khan Work Phone: [facility] Work Phone: Start: 11-07-2022 End: 11-07-[address] Radha Khan Work Phone: [facility] Work Phone: Start: 10-31-2022 End: 10-31-[address] Radha Khan Work Phone: [facility] Work Phone: Start: 10-31-2022 End: 10-31-[address] Radha Khan Work Phone: [facility] Start: 10-12-2022 End: 10-12-[address] Radha Khan Work Phone: [facility] Work Phone: Start: 10-12-2022 End: 10-12-[address] Radha Khan Work Phone: [facility] Work Phone: Start: 10-08-2022 End: 10-08-[address] Radha Khan Work Phone: [facility] Work Phone: Start: 10-01-2022 Non-patient / Non-visit Dr. Armen Khan Work Phone: [facility] Start: 10-01-2022 End: 10-01-[address] Radha Khan Work Phone: [facility] Work Phone: Start: 10-01-2022 End: 10-01-[address] Radha Khan Work Phone: [facility]-Cardiovascula r Services Work Phone: Start: 09-03-2022 End: 09-03-[address] Radha Khan Work Phone: [facility] Endocrinology Work Phone: Start: 08-03-2022 Non-patient / Non-visit Dr. Armen Khan Work Phone: [facility] Inpatient Physicians Start: 08-02-2022 Non-patient / Non-visit Dr. Armen Khan Work Phone: [facility] Start: 08-01-2022 End: 08-03-2022 Evaluation and management of inpatient Dr. Radha Khan Work Phone: [facility]-Progressive Care Unit Start: 08-01-2022 End: 08-03-[address] Radha Khan Work Phone: [facility] Work Phone: Start: 07-27-2022 End: 07-27-[address] Radha Khan Work Phone: [facility] Work Phone: Start: 07-27-2022 End: 07-27-[address] Radha Khan Work Phone: [facility] Start: 06-26-2022 End: 06-26-[address] Radha Khan Work Phone: [facility] Work Phone: Start: 06-26-2022 End: 06-26-[address] Radha Khan Work Phone: [facility] Start: 06-18-2022 End: 06-18-[address] Radha Khan Work Phone: [facility] Endocrinology Start: 06-12-2022 End: 06-12-[address] Radha Khan Work Phone: [facility]-Pulmonary Medicine [facility] Start: 05-21-2022 End: 05-21-[address] Radha Khan Work Phone: [facility] Start: 05-18-2022 End: 05-18-[address] Radha Khan Work Phone: [facility] Start: 05-09-2022 End: 05-09-2022 Admission to same day surgery center Dr. Radha Khan Work Phone: [facility]-Gerontology Aide/Special Procedures Start: 05-09-2022 End: 05-09-[address] Radha Khan Work Phone: [facility] Work Phone: Start: 05-03-[address] Barney Khan Work Phone: [facility] Start: 05-03-2022 End: 05-03-[address] Radha Khan Work Phone: [facility] Start: 04-27-2022 End: 04-27-[address] Radha Khan Work Phone: [facility] Work Phone: Start: 04-27-2022 End: 04-27-[address] Radha Khan Work Phone: [facility] Start: 04-17-2022 End: 04-17-[address] Radha Khan Work Phone: [facility] Work Phone: Start: 04-17-2022 End: 04-17-[address] Radha Khan Work Phone: [facility] Start: 03-12-2022 End: 03-12-[address] Radha Khan Work Phone: [facility] Start: 02-19-2022 End: 02-19-[address] Radha Khan Work Phone: [facility] Start: 02-17-2022 Non-patient / Non-visit Dr. Armen Khan Work Phone: [facility] Start: 02-16-2022 End: 02-16-[address] Radha Khan Work Phone: [facility] Work Phone: Start: 02-16-2022 End: 02-16-[address] Radha Khan Work Phone: [facility]-Pulmonary Services/Neurology Start: 02-12-2022 End: 02-12-[address] [facility] Start: 01-15-2022 End: 01-15-[address] Radha Khan Work Phone: [facility] Start: 11-13-2021 End: 11-13-[address] Radha Khan Work Phone: [facility] Start: 09-19-2021 End: 09-19-[address] Radha Khan Work Phone: [facility]-Pulmonary Services/Neurology Start: 09-07-2021 End: 09-07-[address] Radha Khan Work Phone: [facility] Start: 09-04-2021 End: 09-04-2021 Emergency department patient visit Dr. Radha Khan Work Phone: [facility]-Emergency Department Start: 08-14-2021 Non-patient / Non-visit Dr. Armen Khan Work Phone: [facility] Start: 08-14-2021 End: 08-14-[address] Radha Khan Work Phone: [facility]-Cardiovascula r Services Start: 08-10-2021 End: 08-10-[address] Radha Khan Work Phone: [facility] Endocrinology Start: 08-09-2021 End: 08-09-[address] Radha Khan Work Phone: [facility]-Sleep Lab Start: 07-16-2021 End: 07-16-2021 Emergency department patient visit Dr. Radha Khan Work Phone: [facility]-Emergency Department Start: 07-13-2021 End: 07-13-[address] Radha Khan Work Phone: [facility]-Pulmonary Medicine [facility] Start: 07-12-2021 End: 07-12-[address] Radha Khan Work Phone: [facility]-Laboratory Start: 07-12-2021 End: 07-12-[address] Radha Khan Work Phone: [facility] Start: 06-29-2021 End: 06-29-[address] Radha Khan Work Phone: [facility] Endocrinology Start: 06-20-2021 Non-patient / Non-visit Dr. Armen Khan Work Phone: [facility] Inpatient Physicians Start: 06-19-2021 Non-patient / Non-visit Dr. Armen Khan Work Phone: [facility] Start: 06-19-2021 Non-patient / Non-visit Dr. Armen Khan Work Phone: [facility] Inpatient Physicians Start: 06-19-2021 End: 06-20-2021 Evaluation and management of inpatient Dr. Radha Khan Work Phone: [facility] Start: 06-15-2021 Non-patient / Non-visit Dr. Armen Khan Work Phone: [facility] Start: 06-15-2021 End: 06-15-[address] [facility] Start: 06-02-2021 End: 06-02-[address] Radha Khan [facility] Start: 06-02-2021 Non-patient / Non-visit Dr. Armen Khan Work Phone: [facility] Start: 06-01-2021 End: 06-01-[address] Radha Khan Work Phone: [facility] [place] Start: 06-01-2021 End: 06-01-[address] Radha Khan Work Phone: [facility] Endocrinology Start: 05-30-2021 End: 05-30-[address] Radha Khan Work Phone: [facility] Start: 12-27-2010 End: 12-27-2010 Patient encounter procedure Karlos Aquino Work Phone: [facility] Start: 12-27-2010 Results Only Karlos lehman Work Phone: [facility] Procedures Date Procedure Procedure Detail Performing Clinician Start: 09-26-2024 CT of head without contrast Dr. Radha Khan MD Work Phone: Start: 09-24-2024 Radiologic exam ches t single view Maeve Pringle MD Work Phone: Start: 09-24-2024 [facility] alve olar lavage [...] Bilateral Views W contrast IA Mey Loya [facility] Work Phone: Start: 05-06-2024 Ecg routine ecg w/le ast 12 lds trcg only w/o i&r Mey Loya [facility] Work Phone: Start: 05-06-2024 Basic metabolic pane l calcium total Mey Loya [facility] Work Phone: Start: 05-05-2024 Blood count smear [...] Author Start: 10-03-2028 Lipid panel Lipid Panel [facility] Start: 09-23-2025 Creatinine measurement Creatinine Level [facility] Start: 09-23-2025 Potassium measurement Potassium Level [facility] Start: 07-23-2025 Echocardiography Echocardiogram [facility] Start: 05-06-2025 Creatinine measurement Creatinine Level [facility] Start: 05-06-2025 Diabetes: Estimated Glomerular Filtration Rate for Kidney Health Diabetes: Estimated Glomerular Filtration Rate for Kidney Health [facility] Start: 05-06-2025 Potassium measurement Potassium Level [facility] Start: 12-04-2024 End: 12-04-2024 Patient encounter procedure 12/04/2024 1:00 PM EDT Office Visit [facility] [place] [address] [address] [facility] [address] [place] [address] [place] [address] [place] [address] [facility] Start: 10-04-2024 Creatinine measurement Creatinine Level [facility] Start: 10-04-2024 Diabetes: Estimated Glomerular Filtration Rate for Kidney Health Diabetes: Estimated Glomerular Filtration Rate for Kidney Health [facility] Start: 10-04-2024 Potassium measurement Potassium Level [facility] Start: 10-03-2024 Diabetes mellitus screening Diabetes Screening [facility] Start: 10-03-2024 Hemoglobin A1c measurement Diabetes: Hemoglobin A1C [facility] Start: 10-03-2024 Lipid panel Lipid Panel [facility] Start: 09-26-2024 Admission procedure [facility] Start: 09-26-2024 [facility] Start: 09-26-2024 CT angiography of head and neck STROKE CTA Head AND Neck W/Con [facility] Start: 09-26-2024 CTA Head vessels and Neck vessels W contrast IV [facility] Start: 09-26-2024 Hospital admission, emergency, from emergency room, medical nature [facility] Start: 09-26-2024 Oxygen therapy [facility] Start: 09-26-2024 End: 09-26-2024 [facility] Start: 08-28-2024 End: 08-28-2025 DLCO / Diffusion Capacity DLCO / Diffusion Capacity PFT Routine ILD (interstitial lung disease) (Multi) Chronic respiratory failure with hypoxia Expected: 08/28/2024 (Approximate), Expires: 08/28/2025 [facility] Work Phone: Comment on above: Expected: 08/28/2024 (Approximate), Expi res: 08/28/2025 Start: 08-28-2024 End: 08-28-2025 Pulmonary Stress Test (6 Min. Walk) Pulmonary Stress Test (6 Min. Walk) PFT Routine ILD (interstitial lung disease) (Multi) Chronic respiratory failure with hypoxia Expected: 08/28/2024 (Approximate), Expires: 08/28/2025 [facility] Work Phone: Comment on above: Expected: 08/28/2024 (Approximate), Expi res: 08/28/2025 Start: 08-28-2024 End: 08-28-2025 Spirometry Pre/Post Bronchodilator Spirometry Pre/Post Bronchodilator PFT Routine ILD (interstitial lung disease) (Multi) Chronic respiratory failure with hypoxia Expected: 08/28/2024 (Approximate), Expires: 08/28/2025 [facility] Service Area Work Phone: Comment on above: Expected: 08/28/2024 (Approximate), Expi res: 08/28/2025 Start: 08-28-2024 End: 08-28-2024 Patient encounter procedure [facility] [place] Start: 08-12-2024 X-ray of chest, PA and lateral views [facility] Start: 08-07-2024 End: 08-07-2025 DLCO / Diffusion Capacity DLCO / Diffusion Capacity PFT Routine ILD (interstitial lung disease) (Multi) Expected: 08/07/2024 (Approximate), Expires: 08/07/2025 [facility] Work Phone: Comment on above: Expected: 08/07/2024 (Approximate), Expi res: 08/07/2025 Start: 08-07-2024 End: 08-07-2025 Pulmonary Stress Test (6 Min. Walk) Pulmonary Stress Test (6 Min. Walk) PFT Routine ILD (interstitial lung disease) (Multi) Expected: 08/07/2024 (Approximate), Expires: 08/07/2025 [facility] Work Phone: Comment on above: Expected: 08/07/2024 (Approximate), Expi res: 08/07/2025 Start: 08-07-2024 End: 08-07-2025 Spirometry Pre/Post Bronchodilator Spirometry Pre/Post Bronchodilator PFT Routine ILD (interstitial lung disease) (Multi) Expected: 08/07/2024 (Approximate), Expires: 08/07/2025 [facility] Service Area Work Phone: Comment on above: Expected: 08/07/2024 (Approximate), Expi res: 08/07/2025 Start: 07-24-2024 End: 07-24-2024 Patient encounter procedure [facility] Start: 07-23-2024 End: 07-23-2024 Patient encounter procedure 07/23/2024 2:00 PM EDT Appointment [facility] [address] [facility] [address] [place] [address] [facility] Start: 07-19-2024 DTaP/Tdap/Td Vaccines (2 - Td or Tdap) DTaP/Tdap/Td Vaccines (2 - Td or Tdap) [facility] Start: 07-13-2024 End: 07-13-2024 Patient encounter procedure 07/13/2024 2:00 PM EDT Appointment [facility] [address] [facility] [address] [place] [id number] [facility] Start: 06-26-2024 End: 06-26-2025 Aldolase [Enzymatic activity/volume] in Serum or Plasma Aldolase Lab Routine ILD (interstitial lung disease) (Multi) Expected: 06/26/2024 (Approximate), Expires: 06/26/2025 [facility] Work Phone: Comment on above: Expected: 06/26/2024 (Approximate), Expi res: 06/26/2025 Start: 06-26-2024 End: 06-26-2025 C reactive protein [Mass/volume] in Serum or Plasma C-Reactive Protein Lab Routine ILD (interstitial lung disease) (Multi) Expected: 06/26/2024 (Approximate), Expires: 06/26/2025 [facility] Work Phone: Comment on above: Expected: 06/26/2024 (Approximate), Expi res: 06/26/2025 Start: 06-26-2024 End: 06-26-2025 Complete Pulmonary Function Test (Spirometry/DLCO/Lung Volumes) Complete Pulmonary Function Test (Spirometry/DLCO/Lung Volumes) PFT Routine ILD (interstitial lung disease) (Multi) Expected: 06/26/2024 (Approximate), Expires: 06/26/2025 [facility] Work Phone: Comment on above: Expected: 06/26/2024 (Approximate), Expi res: 06/26/2025 Start: 06-26-2024 End: 06-26-2025 Creatine kinase [Enzymatic activity/volume] in Serum or Plasma Creatine Kinase Lab Routine ILD (interstitial lung disease) (Multi) Expected: 06/26/2024 (Approximate), Expires: 06/26/2025 [facility] Work Phone: Comment on above: Expected: 06/26/2024 (Approximate), Expi res: 06/26/2025 Start: 06-26-2024 End: 06-26-[address] chest high resolution Imaging Routine ILD (interstitial lung disease) (Multi) Expected: 06/26/2024 (Approximate), Expires: 06/26/2025 [facility] Service Area Work Phone: Comment on above: Expected: 06/26/2024 (Approximate), Expi res: 06/26/2025 Start: 06-26-2024 End: 06-26-2025 Cyclic citrullinated peptide IgG Ab [Units/volume] in Serum or Plasma Citrulline Antibody, IgG Lab Routine ILD (interstitial lung disease) (Multi) Expected: 06/26/2024 (Approximate), Expires: 06/26/2025 [facility] Work Phone: Comment on above: Expected: 06/26/2024 (Approximate), Expi res: 06/26/2025 Start: 06-26-2024 End: 06-26-2025 Erythrocyte sedimentation rate Sedimentation Rate Lab Routine ILD (interstitial lung disease) (Multi) Expected: 06/26/2024 (Approximate), Expires: 06/26/2025 [facility] Work Phone: Comment on above: Expected: 06/26/2024 (Approximate), Expi res: 06/26/2025 Start: 06-26-2024 End: 06-26-2025 Extended Myositis Panel Extended Myositis Panel Lab Routine ILD (interstitial lung disease) (Multi) Expected: 06/26/2024 (Approximate), Expires: 06/26/2025 [facility] Work Phone: Comment on above: Expected: 06/26/2024 (Approximate), Expi res: 06/26/2025 Start: 06-26-2024 End: 06-26-2025 Hypersensitivity Pneumonitis Panel Hypersensitivity Pneumonitis Panel Lab Routine ILD (interstitial lung disease) (Multi) Expected: 06/26/2024 (Approximate), Expires: 06/26/2025 [facility] Work Phone: Comment on above: Expected: 06/26/2024 (Approximate), Expi res: 06/26/2025 Start: 06-26-2024 End: 06-26-2025 MPO, PR3 with Reflex to ANCA MPO, PR3 with Reflex to ANCA Lab Routine ILD (interstitial lung disease) (Multi) Expected: 06/26/2024 (Approximate), Expires: 06/26/2025 [facility] Work Phone: Comment on above: Expected: 06/26/2024 (Approximate), Expi res: 06/26/2025 Start: 06-26-2024 End: 06-26-2025 Nuclear Ab [Presence] in Serum by Hep2 substrate RICARDO with Reflex to NEELA Lab Routine ILD (interstitial lung disease) (Multi) Expected: 06/26/2024 (Approximate), Expires: 06/26/2025 [facility] Work Phone: Comment on above: Expected: 06/26/2024 (Approximate), Expi res: 06/26/2025 Start: 06-26-2024 End: 06-26-2025 Pulmonary Stress Test (6 Min. Walk) Pulmonary Stress Test (6 Min. Walk) PFT Routine ILD (interstitial lung disease) (Multi) Expected: 06/26/2024 (Approximate), Expires: 06/26/2025 [facility] Work Phone: Comment on above: Expected: 06/26/2024 (Approximate), Expi res: 06/26/2025 Start: 06-26-2024 End: 06-26-2025 Rheumatoid factor [Units/volume] in Serum by Nephelometry Rheumatoid Factor Lab Routine ILD (interstitial lung disease) (Multi) Expected: 06/26/2024 (Approximate), Expires: 06/26/2025 [facility] Work Phone: Comment on above: Expected: 06/26/2024 (Approximate), Expi res: 06/26/2025 Start: 06-26-2024 End: 06-26-2026 US Heart Transthoracic Transthoracic Echo (TTE) Complete Echocardiography Routine Pulmonary hypertension (Multi) Expected: 06/26/2024 (Approximate), Expires: 06/26/2026 [facility] Work Phone: Comment on above: Expected: 06/26/2024 (Approximate), Expi res: 06/26/2026 Start: 05-06-2024 End: 05-06-2024 Patient encounter procedure 05/06/2024 10:00 AM EST Appointment [facility] [address] [place] [address] [facility] Start: 04-27-2024 End: 04-27-2024 Patient encounter procedure 04/27/2024 3:00 PM EST Office Visit [facility] [address] [place] [id number] Suzy Jauregui MD [address] [place], [place] [id number] [facility] Start: 04-25-2024 Patient discharge [facility] Start: 04-24-2024 Dual pressure spontaneous ventilation support [facility] Start: 04-24-2024 Aspiration precautions [facility] Start: 04-24-2024 Assessment of risk of venous thromboembolism [facility] Start: 04-24-2024 Cardiac monitoring [facility] Start: 04-24-2024 Care regimes management [facility] Start: 04-24-2024 Catheterization of vein [facility] Start: 04-24-2024 Consultation [facility] Start: 04-24-2024 Continuous pulse oximetry [facility] Start: 04-24-2024 Elevation of head of bed [facility] Start: 04-24-2024 Exercises [facility] Start: 04-24-2024 Fall prevention [facility] Start: 04-24-2024 Inhalation therapy procedure [facility] Start: 04-24-2024 Insertion of catheter into peripheral vein [facility] Start: 04-24-2024 Introduction of urinary catheter [facility] Start: 04-24-2024 Measuring intake and output [facility] Start: 04-24-2024 Notification of physician [facility] Start: 04-24-2024 Oxygen therapy [facility] Start: 04-24-2024 Patient referral to [facility] Start: 04-24-2024 Providing care according to standard [facility] Start: 04-24-2024 Provision of activity privileges [facility] Start: 04-24-2024 Referral to occupational therapist [facility] Start: 04-24-2024 Referral to service [facility] Start: 04-24-2024 Speech therapy assessment [facility] Start: 04-24-2024 Telemedicine consultation with patient [facility] Start: 04-24-2024 Tobacco use cessation education [facility] Start: 04-24-2024 End: 04-24-2024 [facility] Start: 04-24-2024 Following clinical pathway protocol [facility] Start: 04-24-2024 Admission procedure [facility] Start: 04-24-2024 Patient referral to [facility] Start: 04-24-2024 [facility] Start: 04-15-2024 Referral to service [facility] Start: 04-15-2024 Patient discharge [facility] Start: 04-15-2024 Fluid restriction [facility] Start: 04-14-2024 [facility] Start: 04-13-2024 Consultation [facility] Start: 04-13-2024 [facility] Start: 04-13-2024 Elevation of head of bed [facility] Start: 04-13-2024 Patient education [facility] Start: 04-13-2024 [facility] Start: 04-12-2024 Following clinical pathway protocol [facility] Start: 04-12-2024 Ambulation without limitation [facility] Start: 04-12-2024 Assessment of risk of venous thromboembolism [facility] Start: 04-12-2024 Care regimes management [facility] Start: 04-12-2024 Catheterization of vein [facility] Start: 04-12-2024 Elevation of affected extremity [facility] Start: 04-12-2024 Inhalation therapy procedure [facility] Start: 04-12-2024 Insertion of catheter into peripheral vein [facility] Start: 04-12-2024 Measuring intake and output [facility] Start: 04-12-2024 Notification of physician [facility] Start: 04-12-2024 Oxygen therapy [facility] Start: 04-12-2024 Patient education [facility] Start: 04-12-2024 Providing care according to standard [facility] Start: 04-12-2024 End: 04-12-2024 [facility] Start: 04-12-2024 Admission procedure [facility] Start: 04-12-2024 Patient referral to dietitian [facility] Start: 02-13-2024 End: 02-12-2025 RFA Cerebral arteries Bilateral Views W contrast IA IR angiogram cerebral with possible intervention Imaging Routine Ischemic cerebrovascular accident (CVA) (HCC) Bilateral carotid artery stenosis Expected: 02/13/2024, Expires: 02/12/2025 [facility] [employer] Work Phone: Comment on above: Expected: 02/13/2024, Expires: Start: 01-22-2024 Subsequent hospital visit by physician 01/22/2024 10:45 AM EDT Hospital Encounter [facility] [address] [place] [address] Oziel Culp MD [address] [place] [address] [facility] [address] Start: 01-20-2024 End: 01-05-2025 CTA Head vessels and Neck vessels WO and W contrast IV CTA head neck angio w and wo IV contrast Imaging Routine Bilateral carotid artery stenosis Ischemic cerebrovascular accident (CVA) (HCC) Expected: 01/20/2024, Expires: 01/05/2025 [facility] Work Phone: Comment on above: Expected: 01/20/2024, Expires: Start: 01-16-2024 End: 01-15-2025 Creatinine [Mass/volume] in Serum or Plasma Creatinine, Serum Lab Routine Chronic kidney disease, unspecified CKD stage Expected: 01/16/2024 (Approximate), Expires: 01/15/2025 [facility] Work Phone: Comment on above: Expected: 01/16/2024 (Approximate), Expi res: 01/15/2025 Start: 12-01-2023 Influenza vaccination Influenza Vaccine (#1) [facility] Start: 2023 RSV Immunization aged 60 or older (1 - 1-dose 60+ series) RSV Immunization aged 60 or older (1 - 1-dose 60+ series) [facility] Start: 2023 RSV Immunization for Adults (1 - Risk 60-74 years 1-dose series) RSV Immunization for Adults (1 - Risk 60-74 years 1-dose series) [facility] Start: 07-03-2023 Patient referral [facility] Work Phone: Start: 02-18-2023 Anesthesia cervical spine & cord nos ANESTH SPINE CORD SURGERY [facility] Start: 02-18-2023 Njx dx/ther agt pvrt facet jt crv/thrc 1 level INJ PARAVERT F JNT C/T 1 LEV [facility] Start: 02-18-2023 Njx dx/ther agt pvrt facet jt crv/thrc 2nd level INJ PARAVERT F JNT C/T 2 [facility] Start: 02-18-2023 Njx dx/ther agt pvrt facet jt crv/thrc 3+ level INJ PARAVERT F JNT C/T 3 [facility] Start: 02-18-2023 Fluoroscopy guided injection of cervical spinal nerve root OR-Steroid Inj/Cer Thor/1st L [facility] Start: 02-18-2023 Injection of facet joint [facility] Start: 02-18-2023 X-ray of cervical spine Cerv Spine 4 or 5 [facility] Start: 02-18-2023 Patient discharge [facility] Start: 12-10-2022 Patient referral [facility] Work Phone: Start: 10-08-2022 Patient referral [facility] Work Phone: Start: 08-03-2022 Patient discharge [facility] Start: 08-03-2022 Referral to occupational therapist [facility] Start: 08-03-2022 Referral to service [facility] Start: 08-02-2022 [facility] Start: 08-02-2022 Following clinical pathway protocol [facility] Start: 08-02-2022 Assessment of risk of venous thromboembolism [facility] Start: 08-02-2022 Cardiac monitoring [facility] Start: 08-02-2022 Care regimes management [facility] Start: 08-02-2022 Catheterization of vein [facility] Start: 08-02-2022 Elevation of head of bed [facility] Start: 08-02-2022 Exercises [facility] Start: 08-02-2022 Fall prevention [facility] Start: 08-02-2022 Implementation of planned interventions [facility] Start: 08-02-2022 Inhalation therapy procedure [facility] Start: 08-02-2022 Insertion of catheter into peripheral vein [facility] Start: 08-02-2022 Introduction of urinary catheter [facility] Start: 08-02-2022 Measuring intake and output [facility] Start: 08-02-2022 Notification of physician [facility] Start: 08-02-2022 Oxygen therapy [facility] Start: 08-02-2022 End: 08-02-2022 Patient referral to dietitian [facility] Start: 08-02-2022 Providing care according to standard [facility] Start: 08-02-2022 Provision of activity privileges [facility] Start: 08-02-2022 Referral to occupational therapist [facility] Start: 08-02-2022 Referral to service [facility] Start: 08-02-2022 Speech therapy assessment [facility] Start: 08-02-2022 Tobacco use cessation education [facility] Start: 08-02-2022 [facility] Start: 08-01-2022 Admission procedure [facility] Start: 08-14-2021 Radionuclide imaging of perfusion of myocardium under exercise stress Nuclear Stress Test - Treadmil [facility] Work Phone: Start: 06-20-2021 Patient discharge [facility] Work Phone: Start: 06-19-2021 Following clinical pathway protocol [facility] Work Phone: Start: 06-19-2021 Care regimes management [facility] Work Phone: Start: 06-19-2021 Notification of physician [facility] Work Phone: Start: 06-19-2021 End: 06-19-2021 [facility] Work Phone: Start: 06-19-2021 Admission procedure [facility] Work Phone: Start: 08-05-2020 COVID-19 Vaccine (3 - Moderna risk series) COVID-19 Vaccine (3 - Moderna risk series) [facility] Start: 07-03-2020 PROSTATE CANCER SCREENING DISCUSSION PROSTATE CANCER SCREENING DISCUSSION [facility] Start: 12-01-2019 Influenza vaccination INFLUENZA (#1) [facility] Start: 09-20-2016 Thyroid stimulating hormone measurement TSH Level [facility] Start: 09-09-2016 [object Object] DIABETIC FOOT EXAM [facility] Start: 12-12-2015 HbA1c (Bld) [Mass fraction] HBA1C [facility] Start: 12-07-2015 Pneumococcal vaccination Pneumococcal Vaccine (2 of 2 - PCV) [facility] Start: 12-07-2015 Pneumococcal Vaccine: 50+ Years (2 of 2 - PCV) Pneumococcal Vaccine: 50+ Years (2 of 2 - PCV) [facility] Start: 12-07-2015 Pneumococcal Vaccine: Pediatrics (0 to 5 Years) and At-Risk Patients (6 to 64 Years) (2 of 2 - PCV) Pneumococcal Vaccine: Pediatrics (0 to 5 Years) and At-Risk Patients (6 to 64 Years) (2 of 2 - PCV) [facility] Start: 08-24-2013 SHINGRIX VACCINE (1 of 2) SHINGRIX VACCINE (1 of 2) [facility] Start: 08-24-2013 Tuberculosis screening COLORECTAL CANCER SCREENING,SEE MODIFIER [facility] Start: 03-10-2009 MMR Vaccines (1 of 1 - Standard series) MMR Vaccines (1 of 1 - Standard series) [facility] Start: 08-24-1982 Urine microalbumin profile DTAP,TDAP,TD (1 - Tdap) [facility] Start: 08-24-1981 ANNUAL PCP TEAM CHRONIC DISEASE VISIT ANNUAL PCP TEAM CHRONIC DISEASE VISIT [facility] Start: 08-24-1981 BP CONTROLLED (<130/80) BP CONTROLLED (<130/80) [facility] Start: 08-24-1981 Diabetes: Urine Albumin-Creatinine Ratio for Kidney Health Diabetes: Urine Albumin-Creatinine Ratio for Kidney Health [facility] Start: 08-24-1981 Hepatitis B surface antibody level LDL CHOLESTEROL [facility] Start: 08-24-1981 HEPATITIS C SCREENING HEPATITIS C SCREENING [facility] Start: 08-24-1981 Hepatitis C screening Hepatitis C Screening [facility] Start: 08-24-1981 HIV SCREENING HIV SCREENING [facility] Start: 1975 Depression Screening Depression Screening [facility] Start: 08-24-1973 Diabetic foot examination Diabetes: Foot Exam [facility] Start: 08-24-1973 Glaucoma screening Diabetes: Retinopathy Screening [facility] Start: 08-24-1973 Hepatitis B screening URINE ALBUMIN:CREATININE RATIO [facility] Start: 08-24-1973 Hepatitis C antibody, confirmatory test DILATED RETINAL EXAM [facility] Start: 08-24-1973 Preventive dental service Diabetes: Dental Exam [facility] Start: 1963 Creatinine measurement Creatinine Level [facility] Start: 1963 Echocardiography Echocardiogram [facility] Start: 1963 HIV screening HIV Screening [facility] Start: 1963 Potassium measurement Potassium Level [facility] Start: 1963 Screening for malignant neoplasm of colon [facility] Start: 1963 Skin Cancer Screening Skin Cancer Screening [facility] Start: 1963 Thyroid stimulating hormone measurement TSH Level [facility] Start: 1963 Yearly Adult Physical Yearly Adult Physical [facility] Aspergillus Galactom vicenta EIA (Non-Blood Specimen) [facility] Work Phone: Comment on above: Release Upon Ordering for 1 Occurrences starting 09/24/2024 Bacteria identified in Unspecified specimen by Respiratory culture Respiratory Culture/Smear Microbiology Routine ILD (interstitial lung disease) ([facility]) 09/24/2024 8:39 AM EDT [facility] Work Phone: CBC W Auto Different ial panel - Blood [facility] End: 07-24-2024 Complete Pulmonary Function Test (Spirometry/DLCO/Lung Volumes) [facility] Service Area Work Phone: Comment on above: Once for 1 Occurrences starting 07/25/19 until 07/24/2024 DLCO / Diffusion Capacity DLCO / Diffusion Capacity PFT Routine ILD (interstitial lung disease) ([facility]) 08/18/2024 10:39 AM EDT [facility] Work Phone: ECG 12 lead ECG 12 lead CV E CG Routine 05/06/2024 9:00 AM EST [facility] Work Phone: Ferritin [Mass/volum e] in Serum or Plasma [facility] Folate [Mass/volume] in Serum or Plasma [facility] Fungus identified in Unspecified specimen by Culture [facility] Work Phone: Comment on above: Release Upon Ordering for 1 Occurrences starting 09/24/2024 Hepatic function panel [facility] Histoplasma capsulat um Ag [Units/volume] in Serum by Immunoassay [facility] Work Phone: Comment on above: Release Upon Ordering for 1 Occurrences starting 09/24/2024 Iron and Iron bindin g capacity panel - Serum or Plasma [facility] [place] and lambda lig ht chains [facility] Legionella PCR Panel [facility] Work Phone: Comment on above: Release Upon Ordering for 1 Occurrences starting 09/24/2024 Lipid 1996 panel - S verna or Plasma [facility] Lipid 1996 panel - S [facility] or Plasma [facility] Mycobacterium sp identified in Unspecified specimen by Organism specific culture [facility] Work Phone: Comment on above: Release Upon Ordering for 1 Occurrences starting 09/24/2024, 1 completed NM Heart Views W str ess and W radionuclide IV [facility] Work Phone: Non-gynecological cytology method study [facility] Work Phone: Comment on above: Release Upon Ordering for 1 Occurrences starting 09/24/2024, 1 completed End: 09-24-2024 Pathologist review of results [facility] Work Phone: Comment on above: Once (Lab) for 1 Occurrences starting until 09/24/2024, 1 completed Patient Education [facility] Work Phone: Patient referral [facility] Work Phone: End: 07-24-2024 Pulmonary Stress Test (6 Min. Walk) [facility] Work Phone: Comment on above: Once for 1 Occurrences starting 07/25/19 until 07/24/2024 Pulmonary Stress Karly t (6 Min. Walk) Pulmonary Stress Test (6 Min. Walk) PFT Routine ILD (interstitial lung disease) (Multi) 08/18/2024 11:30 AM EDT [facility] Work Phone: Reticulocyte count [facility] Spirometry Pre/Post Bronchodilator Spirometry Pre/Post Bronchodilator PFT Routine ILD (interstitial lung disease) ([facility]) 08/18/2024 11:36 AM EDT [facility] Work Phone: Surgical pathology study [facility] Work Phone: Comment on above: Release Upon Ordering for 1 Occurrences starting 09/24/2024, 1 completed End: 09-24-2024 T-cell subsets CD4 and CD8 panel - Blood [facility] Work Phone: Comment on above: Release Upon Ordering for 1 Occurrences starting 09/24/2024 Once for 1 Occurrenc es starting 09/24/2024 until 09/24/2024 T4 free measurement [facility] T4 free measurement [facility] T4 free measurement [facility] Thiamine measurement [facility] Thyroid stimulating hormone measurement [facility] Thyroid stimulating hormone measurement [facility] Thyroid stimulating hormone measurement [facility] Troponin T.cardiac [Mass/volume] in Serum or Plasma by High sensitivity method [facility] Troponin T.cardiac [Mass/volume] in Serum or Plasma by High sensitivity method [facility] Carotid arteries [facility] Work Phone: Carotid arteries [facility] Carotid arteries [facility] End: 07-23-2024 US Heart Transthoracic [facility] Service Area Work Phone: Comment on above: Once for 1 Occurrences starting 07/24/19 25 until 07/23/2024 Vitamin B12 measurement [facility] Immunizations Immunization Date Immunization Notes Care Provider [facility] 01-13-2024 RSV Adult Recombinan t (Arexvy) Dr. Radha Khan MD Work Phone: [facility] 01-10-2024 influenza, seasonal, injectable, preservative free Dr. Radha Khan MD Work Phone: [facility] 01-18-2023 influenza virus vacc ine, unspecified formulation CHITO BUENROSTRO INFECTION CONTROL MANAGER-CONCRETE INSPECTOR [facility] 01-18-2023 influenza, injectabl e, quadrivalent, preservative free Oziel Culp MD Work Phone: [facility] 02-01-2022 zoster vaccine recombinant CHITO BUENROSTRO INFECTION CONTROL MANAGER-CONCRETE INSPECTOR [facility] 01-26-2022 influenza virus vacc ine, unspecified formulation CHITO BUENROSTRO INFECTION CONTROL MANAGER-CONCRETE INSPECTOR [facility] 01-26-2022 influenza, injectabl e, quadrivalent, contains preservative Oziel Culp MD Work Phone: [facility] 01-26-2022 influenza, injectabl e, quadrivalent, preservative free Dr. Radha Khan Work Phone: [facility] 01-26-2022 influenza, seasonal, injectable Dr. Radha Khan Work Phone: [facility] 01-16-2021 zoster vaccine recombinant CHITO BUENROSTRO INFECTION CONTROL MANAGER-CONCRETE INSPECTOR [facility] 01-06-2021 influenza virus vacc ine, unspecified formulation CHITO BUENROSTRO INFECTION CONTROL MANAGER-CONCRETE INSPECTOR [facility] 01-06-2021 influenza, injectabl e, quadrivalent, contains preservative Oziel Culp MD Work Phone: [facility] 11-30-2020 influenza, injectabl e, quadrivalent, preservative free Dr. Radha Khan Work Phone: [facility] 11-30-2020 influenza, seasonal, injectable Dr. Radha Khan Work Phone: [facility] 07-08-2020 Covid (Moderna) Dr. Radha fuller Work Phone: [facility] 06-10-2020 Covid (Moderna) Dr. Radha fuller Work Phone: [facility] 01-27-2020 influenza virus vacc ine, unspecified formulation CHITO BUENROSTRO INFECTION CONTROL MANAGER-CONCRETE INSPECTOR [facility] 01-27-2020 influenza, injectabl e, quadrivalent, contains preservative Oziel Culp MD Work Phone: [facility] 01-16-2019 influenza virus vacc ine, unspecified formulation CHITO BUENROSTRO INFECTION CONTROL MANAGER-CONCRETE INSPECTOR [facility] 01-16-2019 influenza, injectabl e, quadrivalent, contains preservative Oziel Culp MD Work Phone: [facility] 01-21-2018 influenza virus vacc ine, unspecified formulation CHITO BUENROSTRO INFECTION CONTROL MANAGER-CONCRETE INSPECTOR [facility] 01-21-2018 influenza, seasonal, injectable Oziel Culp MD Work Phone: [facility] 12-24-2017 influenza, injectabl e, quadrivalent, preservative free Dr. Radha Khan Work Phone: [facility] 12-24-2017 influenza, seasonal, injectable Dr. Radha Khan Work Phone: [facility] 12-09-2015 influenza virus vacc ine, unspecified formulation CHITO BUENROSTRO INFECTION CONTROL MANAGER-CONCRETE INSPECTOR [facility] 12-09-2015 influenza, seasonal, injectable Oziel Culp MD Work Phone: [facility] 12-24-2014 influenza virus vacc ine, unspecified formulation CHITO BUENROSTRO INFECTION CONTROL MANAGER-CONCRETE INSPECTOR [facility] 12-24-2014 influenza, seasonal, injectable Oziel Culp MD Work Phone: [facility] 12-06-2014 pneumococcal polysaccharide vaccine, 23 valent CHITO BUENROSTRO INFECTION CONTROL MANAGER-CONCRETE INSPECTOR [facility] 07-19-2014 tetanus toxoid, redu federica diphtheria toxoid, and acellular pertussis vaccine, adsorbed CHITO BUENROSTRO INFECTION CONTROL MANAGER-CONCRETE INSPECTOR [facility] 02-10-2014 influenza virus vacc ine, unspecified formulation CHITO BUENROSTRO INFECTION CONTROL MANAGER-CONCRETE INSPECTOR [facility] 02-10-2014 influenza, seasonal, injectable Oziel Culp MD Work Phone: [facility] 02-10-2009 novel influenza-H1N1 -09, preservative-free, injectable Oziel Culp MD Work Phone: [facility] Payers Date Payer Category Payer Managed Care (Private) MEDICAL M UTUAL SUPER MED [id number] 09-19-2023 Self-pay [id number] 07-31-2023 Commercial Managed C are - HMO [id number] 07-31-2023 Unknown MEDICAL MUTUAL M MO SUPERMED [id number] 07/31/2023-Present [address] [place] [address] Commercial [id number] 02-27-2023 Unknown [id number] 10-30-2014 Unknown [id number] 07-30-2009 Unknown THP [facility] THP HMO [id number] 07/30/2009-Present HMO [id number]. [id number] 07-30-1996 Unknown [place]P [place] H[place] [id number] 07/30/1996-03/31/2015 HMO [id number]. [id number] 1965 Unknown [id number] 2.840.1.474198.3.579.2. 627 1963 Unknown [id number] 2.16840.1.629785.3.579.2. 124 1963 Unknown [id number] 2.840.1.282617.3.579.2. 1246 1963 Unknown [id number] 2.840.1.482679.3.579.2. 1242 1965 Unknown [id number] 2.0.1.353611.3.579.2. 1242 1963 Unknown [id number] 2.0.1.120242.3.579.2. 1244 1963 Unknown [id number] 2.0.1.706748.3.579.2. 124 1963 Unknown [id number] 2.0.1.330539.3.579.2. 1244 1963 Unknown [id number] 2.0.1.170892.3.579.2. 1244 1963 Unknown [id number] 2.0.1.330975.3.579.2. 1244 1963 Unknown [id number] 2.0.1.292035.3.579.2. 1244 1963 Unknown [id number] 2.840.1.094642.3.579.2. 1244 1963 Unknown [id number] 2.840.1.440753.3.579.2. 124 Unknown [id number] Unknown [id number] 2.840.1.641848.3.579.2. 462 Unknown [id number] 2.16.840.1.980154.3.579.2. 462 Unknown [id number] 2.16.840.1.083645.3.579.2. 462 Unknown [id number] 2.16.840.1.108224.3.579.2. 462 Unknown [id number] 2.16.840.1.501281.3.579.2. 462 Unknown [id number] 2.16.840.1.408785.3.579.2. 462 Unknown [id number] 2.16.840.1.463577.3.579.2. 462 Unknown [id number] 2.16.840.1.112617.3.579.2. 462 Unknown [id number] 2.16.840.1.863659.3.579.2. 462 Unknown [id number] 2.16840.1.198439.3.579.2. 462 Unknown [id number] 2.16840.1.636557.3.579.2. 462 Unknown [id number] 2.16840.1.707214.3.579.2. 462 Unknown [id number] 2.16.840.1.548451.3.579.2. 462 Unknown [id number] 2.16.840.1.032649.3.579.2. 462 Unknown [id number] 2.16.840.1.954372.3.579.2. 462 Unknown [id number] 2.16.840.1.568575.3.579.2. 462 Unknown [id number] 2.16.840.1.461980.3.579.2. 462 Unknown [id number] 2.16.840.1.715971.3.579.2. 462 Unknown [id number] 2.16.840.1.328406.3.579.2. 462 Unknown [id number] 2.16.840.1.841657.3.579.2. 462 Unknown [id number] 2.16.840.1.386542.3.579.2. 462 Unknown [id number] 2.16.840.1.762955.3.579.2. 462 Unknown [id number] 2.16.840.1.292679.3.579.2. 462 Unknown [id number] 2.16.840.1.686582.3.579.2. 462 Unknown [id number] 2.16.840.1.446010.3.579.2. 462 Unknown [id number] 2.16.840.1.786908.3.579.2. 462 Unknown [id number] 2.16.840.1.906491.3.579.2. 462 Unknown [id number] 2.16840.1.131466.3.579.2. 462 Unknown [id number] 2.16840.1.142845.3.579.2. 462 Unknown [id number] 2.16840.1.991277.3.579.2. 462 Unknown [id number] 2.16.840.1.244435.3.579.2. 462 Unknown [id number] 2.16.840.1.013076.3.579.2. 462 Unknown [id number] 2.16840.1.917337.3.579.2. 462 Unknown [id number] 2.16.840.1.965036.3.579.2. 462 Unknown [id number] 2.16.840.1.138916.3.579.2. 462 Unknown [id number] 2.16.840.1.095475.3.579.2. 462 Unknown [id number] 2.16.840.1.567091.3.579.2. 462 Unknown [id number] 2.16840.1.671460.3.579.2. 462 Unknown [id number] 2.16.840.1.708760.3.579.2. 462 Unknown [id number] 2.16.840.1.530409.3.579.2. 462 Unknown [id number] 2.16.840.1.871361.3.579.2. 462 Unknown [id number] 2.16.840.1.143577.3.579.2. 462 Unknown [id number] 2.16.840.1.489720.3.579.2. 462 Unknown [id number] 2.16840.1.842463.3.579.2. 462 Unknown [id number] 2.16840.1.758297.3.579.2. 462 Unknown [id number] 2.840.1.789501.3.579.2. 462 Unknown [id number] 2.840.1.876102.3.579.2. 462 Unknown [id number] 2.840.1.153471.3.579.2. 462 Unknown [id number] 2.840.1.992366.3.579.2. 462 Unknown [id number] 2.840.1.458697.3.579.2. 462 Unknown [id number] 2.840.1.099076.3.579.2. 462 Unknown [id number] 2.840.1.526601.3.579.2. 462 Unknown [id number] 2.16840.1.002283.3.579.2. 462 Unknown [id number] 2.16840.1.054796.3.579.2. 462 Unknown [id number] 2.16840.1.097480.3.579.2. 462 Unknown [id number] 2.16840.1.557777.3.579.2. 462 Unknown [id number] 2.16.840.1.608630.3.579.2. 462 Unknown [id number] 2.16.840.1.570752.3.579.2. 462 Unknown [id number] 2.16.840.1.294951.3.579.2. 462 Unknown [id number] 2.16.840.1.472370.3.579.2. 462 Unknown [id number] 2.16840.1.979333.3.579.2. 462 Unknown [id number] 2.16840.1.292546.3.579.2. 462 Unknown [id number] 2.840.1.775349.3.579.2. 462 Unknown [id number] 2.16840.1.574030.3.579.2. 462 Unknown [id number] 2.840.1.682431.3.579.2. 462 Unknown [id number] 2.840.1.200001.3.579.2. 462 Unknown [id number] 2.840.1.488554.3.579.2. 462 Unknown [id number] 2.840.1.218599.3.579.2. 462 Unknown [id number] 2.16840.1.821187.3.579.2. 462 Unknown [id number] 2.840.1.449256.3.579.2. 462 Unknown [id number] 2.16840.1.293580.3.579.2. 462 Unknown [id number] 2.16840.1.105317.3.579.2. 462 Unknown [id number] 2.16840.1.110936.3.579.2. 462 Unknown [id number] 2.16840.1.105730.3.579.2. 462 Unknown [id number] 2.16840.1.900404.3.579.2. 462 Unknown [id number] 2.16.840.1.795698.3.579.2. 462 Unknown [id number] 2.840.1.529156.3.579.2. 462 Unknown [id number] 2.16.840.1.197627.3.579.2. 462 Unknown [id number] 2.16840.1.463384.3.579.2. 462 Unknown [id number] 2.840.1.910090.3.579.2. 462 Unknown [id number] 2.840.1.096912.3.579.2. 462 Unknown [id number] 2.840.1.423445.3.579.2. 462 Unknown [id number] 2.840.1.133537.3.579.2. 462 Unknown [id number] 2.840.1.654509.3.579.2. 462 Unknown [id number] 2.840.1.759967.3.579.2. 462 Unknown [id number] 2.840.1.571242.3.579.2. 462 Unknown [id number] 2.840.1.392141.3.579.2. 462 Unknown [id number] 2.840.1.898340.3.579.2. 462 Unknown [id number] 2.840.1.707401.3.579.2. 462 Unknown [id number] 2.840.1.507747.3.579.2. 462 Unknown [id number] 2.840.1.755167.3.579.2. 462 Unknown [id number] 2.840.1.953678.3.579.2. 462 Unknown [id number] 2.16840.1.200521.3.579.2. 462 Unknown [id number] 2.840.1.439477.3.579.2. 462 Unknown [id number] 2.16.840.1.720620.3.579.2. 462 Social History Date Type Detail Facility Start: 06-14-2007 End: 09-26-2024 Tobacco smoking status NHIS Never smoker [facility] Start: 06-14-2007 Alcohol intake Not Asked [facility] Start: 1965 Sex Assigned At Not on file [facility] Start: 07-16-2021 End: 07-17-2023 Tobacco smoking status IAIS Unknown if ever smoked [facility] Start: 03-28-2020 None [facility] Start: 03-28-2020 Spouse/ Significant Other [facility] Start: 04-20-2018 Non-smoker [facility] Start: 1965 Sex Assigned At Male [facility] Start: 10-03-2023 Gender identity Identifies as male gender (finding) [facility] Start: 01-06-2024 End: 09-24-2024 Sexual orientation Not on file [facility] Start: 01-06-2024 Tobacco use and exposure Smokeless tobacco non-user [facility] Start: 01-06-2024 End: 05-06-2024 Alcoholic beverage intake Ex-drinker (finding) [facility] Start: 01-06-2024 End: 09-24-2024 History of Social function [facility] Start: 10-03-2023 Sex Male (finding) [facility] Start: 06-26-2024 End: 09-24-2024 Alcoholic beverage intake Lifetime non-drinker (finding) [facility] Work Phone: Start: 05-22-2024 Sexual orientation Heterosexual (finding) [facility] Work Phone: Start: 06-16-2024 End: 08-28-2024 Exposure to SARS-CoV-2 (event) Not sure [facility] How often to you hav e a drink containing alcohol? Never [facility] Work Phone: How many standard drinks containing alcohol do you have on a typical day? Patient does not drink [facility] Work Phone: Medical Equipment Procedure Code Equipment Code Equipment Origin al Text Equipment Identifier Dates Colonoscopy [id number] [facility] Start: 03-27-2024 Stent Inlay Opti ma 7fr Taper [place] Phreecoat Polymer 28cm [facility] - [id number] Start: 09-06-2015 Pen Needle, Diab etic [...] 5/32 needle Start: 06-01-2021 Device Clsr Mynx linux consultant 5fr y - [id number] Start: 05-06-2024 Pen Needle, Diab etic [...] Functional Status Date Assessment Result Facility 09-24-2024 [place] - suicide severity rating scale screener - recent [C-SSRS] [facility] Work Phone: 08-07-2024 Total score [AUDIT-C] 0 08/08/19 25 2:09 PM EDT Rivka Gerardo MA [facility] Work Phone: 04-25-2024 Functional status [facility] Work Phone: 04-15-2024 Functional status Ambulates;Ch[facility] Work Phone: 10-03-2023 Functional Status Room check performed [facility] 10-03-2023 Functional Status [facility] 10-03-2023 Functional Status [facility] 10-03-2023 Functional Status bilateral knee high removed/off [facility] 10-02-2023 Functional Status [facility] 10-02-2023 Functional Status Demonstrates C orrect Call Light Use Yes [facility] 10-02-2023 Functional Status [facility] 10-02-2023 Functional Status Single level home [facility] 10-02-2023 Functional Status None [facility] 08-03-2022 Functional status [facility] Work Phone: 06-20-2021 Functional status Up ad harini [facility] Work Phone: [facility] Work Phone: Mental Status Date Assessment Result Facility 09-26-2024 Cognitive function Voice/Name [facility] Work Phone: 04-25-2024 Cognitive function [facility] Work Phone: 04-15-2024 [facility] function [facility] Work Phone: 10-03-2023 Mental Status Oriented x 4 [facility] 10-02-2023 Mental Status [facility] 10-02-2023 Mental Status [facility] 02-18-2023 Cognitive function Voice/Name [facility] Work Phone: 08-03-2022 Cognitive function Awake;Alert;A ppropriate;Fo llows Commands;Responds to vocal stimuli [facility] Work Phone: 08-03-2022 Cognitive function Voice/Name [facility] Work Phone: 06-20-2021 Cognitive function Appropriate;Cooperativ e [facility] Work Phone: Clinical Notes 08-02-2022 to 09-26-2024 Note Date & Type Note Facility 09-26-2024 Discharge summary [facility] 09-26-2024 Radiology Diagnostic study note [facility] Imaging Services [address] [place], [place] [address] STROKE Brain/Head without Cont MR#: [id number] Acct: [id number] Name: KRUNAL LEOS Rep #: [id number] : 1965 M 59 From: Astrid Newberry MD PCP: Dr. Brandt Winter MD Status: REG ER Study:STROKE Brain/Head without Cont Date of Exam: 09/26/24 Exam# [id number] Ordering Dr: Domonique Avitia MD EXAM: STROKE [...] Avitia at 4:36 pm on09/26/24. Reading Location: [facility] CC: Dr. Brandt Winter MD; Dr. Angel Avitia MD ~ Rubber Tubing Splicer: Signed [facility] 09-26-2024 Discharge summary Note Date/Time September 26, 2024 5:05pm [facility] Medical Records Department [address] [place] [address] Emergency Department Summary 09/26/24 MR#: [id number] Acct: [id number] Name: KRUNAL LEOS Rep #:[id number] : [...] and lung disease. This was performed at [facility]. Patient did take his medicine last evening [...] symptoms: Yes Recent Illness/Hospitalization: Yes (Lung biopsy [facility]) [facility] Medical History Hyperlipidemia Ischemic cerebrovascular accident (CVA) CHF (congestive heart failure) Chronic respiratory failure with hypoxia KIANNA (obstructive sleep apnea) Presence of insulin pump CKD (chronic kidney disease) Hypothyroidism Essential (primary) hypertension Diabetes Acute hypoxemic respiratory failure Chronic diastolic CHF (congestive heart failure) Obesity Exertional shortness of breath Iron deficiency anemia due to chronic blood loss 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 [place] Coma Scale: document GCS findings Spontaneous Obeys [...] 85.3 H Lymph % (Auto) 4.2 L [place] % (Auto) 8.7 Eos % (Auto) 0.6 [...] Avitia at 4:36 pm on09/26/24. Reading Location: [id number] Radiologist informing there is no evidence of acute stroke or hemorrhage. CT was reviewed by me. There is nothing obvious that I saw or any change compared to prior. EKG Initial EKG: Attestation: I personally reviewed and interpreted this EKG as follows: Interpretation: Sinus Rhythm (Rate is 82. MI interval 238 ms. QRS durations 106 ms. QT durations are 96 ms. [place] is normal. There is evidence of LVH. [...] hyperglycemia Prescriptions: No Action (DME) Dexcom G6 Treatment Manager Misc See Rx Instructions .ROUTE .MEDSUPPLY Qty: [...] MD [Primary Care Provider] - Print Language: Kyrgyz Disposition Disposition: Acute Care Hospital [facility] NIHSS NIHSS 1a. Level of Consciousness: 0 [...] problems, contact your Primary Care Provider. Call [employer] [facility] ([phone]) or report to the closest Emergency Room. Call 911 if necessary. 09/26/24 1705 <Electronically signed by Angel Avitia MD> Cosigner Signature (if applicable): CC: Dr. Brandt Winter MD ~ Signed [facility] Work Phone: [phone] 557-132406-26-2025 Hospital Discharge instructions* Discharge Instructions* Dick Nguyen MD - 09/24/2024 9:17 AM EDT [facility] Interventional Pulmonology The anesthetics, sedatives or [...] on weekends: / and ask for the Independent Contractor on-call(Pager Number: [phone]) documented in this [facility] Work Phone: [phone] 864-429906-26-2025 Attending History and physical note* Maeve Pringle [...] Pulmonary, Critical Care, and Sleep Medicine Consultation [address] [facility] Patient was referred by his PCP (Dr. [...] surgery total pulmonary decortication in 2015 at [facility]. He was hospitalized in [place] from 03/02-03/04/2024 for acute hypoxic respiratory failure. [...] Review Audit Reviewed by Heavenly Sparks MA (Planner) on 08/28/24 at 1158 Medication Order Taking? Sig Documenting Provider Last Dose Status albuterol 90 mcg/actuation inhaler [id number] INHALE 2 PUFFS BY MOUTH EVERY 4 HOURS NEEDED FOR SHORTNESS OF BREATH OR WHEEZING Historical ProviderMD Active amLODIPine (Norvasc) 5 mg tablet [id number] Take 1 tablet (5 mg) by mouth once daily. Historical ProviderMD Active aspirin 325 mg tablet [id number] Take 1 tablet (325 mg) by mouth once daily. Historical ProviderLORNActive atorvastatin (Lipitor) 80 mg tablet [id number] Take 1 tablet (80 mg) by mouth once daily at bedtime.Historical ProviderMD Active betamethasone, augmented, (Diprolene) 0.05 % lotion [id number] APPLY TO RASH ON THE TRUNK OR SCALP 1-2 TIMES DAILY NEEDED Historical ProviderMD Active bismuth subsalicylate (Pepto Bismol) 262 mg chewable tablet [id number] CHEW AND SWALLOW 2 TABLETS BYMOUTH 3 TIMES A DAY for 2 weeks. max 16 tablets per 24 hours Patient not taking: Reported on 08/07/2024 Historical ProviderMD Active Brilinta 90 mg tablet [id number] 1 tablet (90 mg). Historical ProviderMD Active busPIRone (Buspar) 10 mg tablet [id number] Take 1 tablet (10 mg) by mouth 3 times a day. Historical ProviderMD Active clopidogrel (Plavix) 75 mg tablet [id number] Take 1 tablet (75 mg) by mouth early in the morning.. Historical ProviderMD Active dapagliflozin propanediol (Farxiga) 5 mg [id number] Take 1 tablet (5 mg) by mouth once daily. Historical ProviderMD Active Dexcom G6 Sensor device [id number] USE DIRECTED FOR CONTINUOUS BLOOD GLUCOSE MONITORING, CHANGE SENSOR EVERY 10 DAYS Historical ProviderMD Active DULoxetine (Cymbalta) [address] capsule [id number] Take 1 capsule (60 mg) by mouth once daily. Historical ProviderMD Active Eliquis 5 mg tablet [id number] Take 1 tablet (5 mg) by mouth 2 times a day. Historical ProviderMD Active ergocalciferol (Vitamin D-2) 1250 mcg (50,000 units) capsule [id number] Take 1 capsule (1,250 mcg) by mouth. Historical ProviderMD Active fenofibrate (Tricor) 54 mg tablet [id number] Take 1 tablet (54 mg) by mouth once daily. Historical ProviderMD Active furosemide (Lasix) 40 mg tablet [id number] Take 1 tablet (40 mg) by mouth. Gloria ProviderMD Active glimepiride (Amaryl) 4 mg tablet [id number] Take 1 tablet (4 mg) by mouth early in the morning.. Patient not taking: Reported on 08/07/2024 Gloria Rahman MD Active glipiZIDE (Glucotrol) 5 mg tablet [id number] Take 1 tablet (5 mg) by mouth. Patient not taking: Reported on 08/07/2024 Gloria ProviderMD Active HumuLIN R U-500, Conc, Insulin 500 unit/mL CONCENTRATED injection [id number] INJECT 75 UNITS DAILY VIA CONTINUOUS SUBCUTANEOUS INFUSION. DISCARD VIAL AFTER 40 DAYS Patient not taking: Reported on 08/07/2024 Gloria ProviderMD Active Jardiance 25 mg [id number] Take 1 tablet (25 mg) by mouth once daily. Historical ProviderMD Active levothyroxine (Synthroid, Levoxyl) 112 mcg tablet [id number] Take 1 tablet (112 mcg) by mouth once daily. Historical ProviderMD Active lisinopril 40 mg tablet [id number] Take 1 tablet (40 mg) by mouth once daily. Historical ProviderMD Active metFORMIN (Glucophage) 500 mg tablet [id number] Take 1 tablet (500 mg) by mouth 2 times daily (morning and late afternoon). Historical ProviderMD Active metoprolol succinate XL (Toprol-XL) 100 mg 24 hr tablet [id number] TAKE 1 TABLET BY MOUTH DAILY for heart Historical ProviderMD Active Mucinex DM 60-1,200 mg tablet extended release 12 hr [id number] Take 1 tablet by mouth every 12 hours. Historical ProviderMD Active oxyCODONE-acetaminophen (Percocet) 5-325 mg tablet [id number] Take 1 tablet by mouth 2 times a day as needed. Patient not taking: Reported on 08/07/2024 Gloria Rahman MD Active pantoprazole (ProtoNix) 40 mg EC tablet [id number] Take 1 tablet (40 mg) by mouth. Historical ProviderMD Active potassium citrate CR (Urocit-K-10) 10 mEq ER tablet [id number] Take 1 tablet (10 mEq) by mouth twicea day. Historical ProviderMD Active predniSONE (Deltasone) 20 mg tablet [id number] Take 0.5 tablets (10 mg) by mouth early in the morning.. Historical ProviderMD Active predniSONE (Deltasone) 20 mg tablet [id number] Take 2 tablets (40 mg) by mouth once daily. Patient not taking: Reported on 08/07/2024 Rosalino Padron MD Active predniSONE (Deltasone) 5 mg tablet [id number] Take 4 tablets (20 mg) by mouth once daily for 30 days, THEN 3 tablets (15 mg) once daily for 30 days, THEN 2 tablets (10 mg) once daily for 30 days, THEN1 tablet (5 mg) once daily for 14 days. Rosalino Padron MD Active spironolactone (Aldactone) 50 mg tablet [id number] Take 1 tablet (50 mg) by mouth once daily. Patient not taking: Reported on 08/07/2024 Historical ProviderMD Active tamsulosin (Flomax) 0.4 mg 24 hr capsule [id number] Take 1 capsule (0.4 mg) by mouth once daily. Historical ProviderMD Active traMADol (Ultram) 50 mg tablet [id number] Take 1 tablet (50 mg) by mouth. [...] above completed Rosalino Padron MD 08/28/2024 T [facility] Work Phone: [phone] 343-457906-26-2025 History and physical note* Maeve Pringle MD [...] Pulmonary, Critical Care, and Sleep Medicine Consultation [address] [facility]monary Clinic/[facility] Patient was referred by his PCP (Dr. [...] surgery total pulmonary decortication in 2015 at [facility]. He was hospitalized in [place] from 03/02-03/04/2024 for acute hypoxic respiratory failure. [...] Review Audit Reviewed by Heavenly Sparks MA (Planner) on 08/28/24 at 1158 Medication Order Taking? Sig Documenting Provider Last Dose Status albuterol 90 mcg/actuation inhaler [id number] INHALE 2 PUFFS BY MOUTH EVERY 4 HOURS NEEDED FOR SHORTNESS OF BREATH OR WHEEZING Historical ProviderMD Active amLODIPine (Norvasc) 5 mg tablet [id number] Take 1 tablet (5 mg) by mouth once daily. Historical ProviderMD Active aspirin 325 mg tablet [id number] Take 1 tablet (325 mg) by mouth once daily. Historical ProviderLORNActive atorvastatin (Lipitor) 80 mg tablet [id number] Take 1 tablet (80 mg) by mouth once daily at bedtime.Historical ProviderMD Active betamethasone, augmented, (Diprolene) 0.05 % lotion [id number] APPLY TO RASH ON THE TRUNK OR SCALP 1-2 TIMES DAILY NEEDED Historical ProviderMD Active bismuth subsalicylate (Pepto Bismol) 262 mg chewable tablet [id number] CHEW AND SWALLOW 2 TABLETS BYMOUTH 3 TIMES A DAY for 2 weeks. max 16 tablets per 24 hours Patient not taking: Reported on 08/07/2024 Historical ProviderMD Active Brilinta 90 mg tablet [id number] 1 tablet (90 mg). Historical ProviderMD Active busPIRone (Buspar) 10 mg tablet [id number] Take 1 tablet (10 mg) by mouth 3 times a day. Historical ProviderMD Active clopidogrel (Plavix) 75 mg tablet [id number] Take 1 tablet (75 mg) by mouth early in the morning.. Historical ProviderMD Active dapagliflozin propanediol (Farxiga) 5 mg [id number] Take 1 tablet (5 mg) by mouth once daily. Historical ProviderMD Active Dexcom G6 Sensor device [id number] USE DIRECTED FOR CONTINUOUS BLOOD GLUCOSE MONITORING, CHANGE SENSOR EVERY 10 DAYS Historical ProviderMD Active DULoxetine (Cymbalta) [address] capsule [id number] Take 1 capsule (60 mg) by mouth once daily. Historical ProviderMD Active Eliquis 5 mg tablet [id number] Take 1 tablet (5 mg) by mouth 2 times a day. Gloria Rahman MD Active ergocalciferol (Vitamin D-2) 1250 mcg (50,000 units) capsule [id number] Take 1 capsule (1,250 mcg) by mouth. Gloria Rahman MD Active fenofibrate (Tricor) 54 mg tablet [id number] Take 1 tablet (54 mg) by mouth once daily. Gloria Rahman MD Active furosemide (Lasix) 40 mg tablet [id number] Take 1 tablet (40 mg) by mouth. Gloria Rahman MD Active glimepiride (Amaryl) 4 mg tablet [id number] Take 1 tablet (4 mg) by mouth early in the morning.. Patient not taking: Reported on 08/07/2024 Gloria Rahman MD Active glipiZIDE (Glucotrol) 5 mg tablet [id number] Take 1 tablet (5 mg) by mouth. Patient not taking: Reported on 08/07/2024 Gloria Rahman MD Active HumuLIN R U-500, Conc, Insulin 500 unit/mL CONCENTRATED injection [id number] INJECT 75 UNITS DAILY VIA CONTINUOUS SUBCUTANEOUS INFUSION. DISCARD VIAL AFTER 40 DAYS Patient not taking: Reported on 08/07/2024 Gloria Rahman MD Active Jardiance 25 mg [id number] Take 1 tablet (25 mg) by mouth once daily. Historical ProviderMD Active levothyroxine (Synthroid, Levoxyl) 112 mcg tablet [id number] Take 1 tablet (112 mcg) by mouth once daily. Gloria Rahman MD Active lisinopril 40 mg tablet [id number] Take 1 tablet (40 mg) by mouth once daily. Historical ProviderMD Active metFORMIN (Glucophage) 500 mg tablet [id number] Take 1 tablet (500 mg) by mouth 2 times daily (morning and late afternoon). Gloria ProviderMD Active metoprolol succinate XL (Toprol-XL) 100 mg 24 hr tablet [id number] TAKE 1 TABLET BY MOUTH DAILY for heart Historical ProviderMD Active Mucinex DM 60-1,200 mg tablet extended release 12 hr [id number] Take 1 tablet by mouth every 12 hours. Gloria Rahman MD Active oxyCODONE-acetaminophen (Percocet) 5-325 mg tablet [id number] Take 1 tablet by mouth 2 times a day as needed. Patient not taking: Reported on 08/07/2024 Gloria Rahman MD Active pantoprazole (ProtoNix) 40 mg EC tablet [id number] Take 1 tablet (40 mg) by mouth. Historical ProviderMD Active potassium citrate CR (Urocit-K-10) 10 mEq ER tablet [id number] Take 1 tablet (10 mEq) by mouth twicea day. Historical ProviderMD Active predniSONE (Deltasone) 20 mg tablet [id number] Take 0.5 tablets (10 mg) by mouth early in the morning.. Historical ProviderMD Active predniSONE (Deltasone) 20 mg tablet [id number] Take 2 tablets (40 mg) by mouth once daily. Patient not taking: Reported on 08/07/2024 Rosalino Padron MD Active predniSONE (Deltasone) 5 mg tablet [id number] Take 4 tablets (20 mg) by mouth once daily for 30 days, THEN 3 tablets (15 mg) once daily for 30 days, THEN 2 tablets (10 mg) once daily for 30 days, THEN1 tablet (5 mg) once daily for 14 days. Rosalino Padron MD Active spironolactone (Aldactone) 50 mg tablet [id number] Take 1 tablet (50 mg) by mouth once daily. Patient not taking: Reported on 08/07/2024 Historical ProviderMD Active tamsulosin (Flomax) 0.4 mg 24 hr capsule [id number] Take 1 capsule (0.4 mg) by mouth once daily. Historical ProviderMD Active traMADol (Ultram) 50 mg tablet [id number] Take 1 tablet (50 mg) by mouth. [...] Rosalino Padron MD 08/28/2024 documented in this [facility] Work Phone: [phone]) [phone] Radiology Diagnostic study [facility]05-09-2025 History of Present illness Narrative* Rosalino Padron MD - 08/07/2024 2:30 PM EDT Images from the original note were not included. Department of Medicine Division of Pulmonary, Critical Care, and Sleep Medicine Consultation [address] Pulmonary Clinic/[facility] Patient was referred by his PCP (Dr. [...] surgery total pulmonary decortication in 2015 at [facility]. He was hospitalized in [place] from 03/02-03/04/2024 for acute hypoxic respiratory failure. [...] Review Audit Reviewed by Rivka Gerardo MA (Planner) on 08/07/24 at 1413 Medication Order Taking? Sig Documenting Provider Last Dose Status albuterol 90 mcg/actuation inhaler [id number] Yes INHALE 2 PUFFS BY MOUTH EVERY 4 HOURS NEEDED FOR SHORTNESS OF BREATH OR WHEEZING Historical ProviderMD Active amLODIPine (Norvasc) 5 mg tablet [id number] Yes Take 1 tablet (5 mg) by mouth once daily. HistoricalProviderMD Active aspirin 325 mg tablet [id number] Yes Take 1 tablet (325 mg) by mouth once daily. Historical ProviderMD Active atorvastatin (Lipitor) 80 mg tablet [id number] Yes Take 1 tablet (80 mg) by mouth once daily at bedtime. Historical ProviderMD Active betamethasone, augmented, (Diprolene) 0.05 % lotion [id number] APPLY TO RASH ON THE TRUNK OR SCALP 1-2 TIMES DAILY NEEDED Historical ProviderMD Active bismuth subsalicylate (Pepto Bismol) 262 mg chewable tablet [id number] CHEW AND SWALLOW 2 TABLETS BYMOUTH 3 TIMES A DAY for 2 weeks. max 16 tablets per 24 hours Patient not taking: Reported on 08/07/2024 Historical ProviderMD Active Brilinta 90 mg tablet [id number] Yes 1 tablet (90 mg). Historical ProviderMD Active busPIRone (Buspar) 10 mg tablet [id number] Yes Take 1 tablet (10 mg) by mouth 3 times a day. Historical ProviderMD Active clopidogrel (Plavix) 75 mg tablet [id number] Take 1 tablet (75 mg) by mouth early in the morning.. Gloria ProviderMD Active dapagliflozin propanediol (Farxiga) 5 mg [id number] Take 1 tablet (5 mg) by mouth once daily. Gloria ProviderMD Active Dexcom G6 Sensor device [id number] Yes USE DIRECTED FOR CONTINUOUS BLOOD GLUCOSE MONITORING, CHANGE SENSOR EVERY 10 DAYS Historical ProviderMD Active DULoxetine (Cymbalta) [address] capsule [id number] Yes Take 1 capsule (60 mg) by mouth once daily. Historical ProviderMD Active Eliquis 5 mg tablet [id number] Yes Take 1 tablet (5 mg) by mouth 2 times a day. Historical ProviderMD Active ergocalciferol (Vitamin D-2) 1250 mcg (50,000 units) capsule [id number] Take 1 capsule (1,250 mcg) by mouth. Historical ProviderMD Active fenofibrate (Tricor) 54 mg tablet [id number] Yes Take 1 tablet (54 mg) by mouth once daily. Historical ProviderMD Active furosemide (Lasix) 40 mg tablet [id number] Yes Take 1 tablet (40 mg) by mouth. Historical ProviderMD Active glimepiride (Amaryl) 4 mg tablet [id number] Take 1 tablet (4 mg) by mouth early in the morning.. Patient not taking: Reported on 08/07/2024 Gloria Rahman MD Active glipiZIDE (Glucotrol) 5 mg tablet [id number] Take 1 tablet (5 mg) by mouth. Patient not taking: Reported on 08/07/2024 Historical MD Lacey Active HumuLIN R U-500, Conc, Insulin 500 unit/mL CONCENTRATED injection [id number] INJECT 75 UNITS DAILY VIA CONTINUOUS SUBCUTANEOUS INFUSION. DISCARD VIAL AFTER 40 DAYS Patient not taking: Reported on 08/07/2024 Gloria Rahman MD Active Jardiance 25 mg [id number] Yes Take 1 tablet (25 mg) by mouth once daily. Historical ProviderMD Active levothyroxine (Synthroid, Levoxyl) 112 mcg tablet [id number] Yes Take 1 tablet (112 mcg) by mouth once daily. Historical ProviderMD Active lisinopril 40 mg tablet [id number] Yes Take 1 tablet (40 mg) by mouth once daily. Gloria Rahman MD Active metFORMIN (Glucophage) 500 mg tablet [id number] Take 1 tablet (500 mg) by mouth 2 times daily (morning and late afternoon). Gloria Rahman MD Active metoprolol succinate XL (Toprol-XL) 100 mg 24 hr tablet [id number] Yes TAKE 1 TABLET BY MOUTH DAILY for heart Historical MD Lacey Active Mucinex DM 60-1,200 mg tablet extended release 12 hr [id number] Take 1 tablet by mouth every 12 hours. Gloria Rahman MD Active oxyCODONE-acetaminophen (Percocet) 5-325 mg tablet [id number] Take 1 tablet by mouth 2 times a day as needed. Patient not taking: Reported on 08/07/2024 Gloria Rahman MD Active pantoprazole (ProtoNix) 40 mg EC tablet [id number] Yes Take 1 tablet (40 mg) by mouth. Gloria Rahman MD Active potassium citrate CR (Urocit-K-10) 10 mEq ER tablet [id number] Take 1 tablet (10 mEq) by mouth twicea day. Historical MD Lacey Active predniSONE (Deltasone) 20 mg tablet [id number] Take 0.5 tablets (10 mg) by mouth early in the morning.. Gloria Rahman MD Active predniSONE (Deltasone) 20 mg tablet [id number] Take 2 tablets (40 mg) by mouth once daily. Patient not taking: Reported on 08/07/2024 Rosalino Padron MD Active spironolactone (Aldactone) 50 mg tablet [id number] Take 1 tablet (50 mg) by mouth once daily. Patient not taking: Reported on 08/07/2024 Gloria Rahman MD Active tamsulosin (Flomax) 0.4 mg 24 hr capsule [id number] Yes Take 1 capsule (0.4 mg) by mouth once daily.Gloria Rahman MD Active traMADol (Ultram) 50 mg tablet [id number] Take 1 tablet (50 mg) by mouth. [...] Rosalino Padron MD 08/07/2024 [facility] Phone: [phone]) 539-286305-09-2025 Instructions* Patient Instructions* Rosalino Padron MD - [...] a breathing or a walking test Call [phone] to schedule EKG's, Echocardiograms and Cardiopulmonary Stress Tests. Call [phone] to schedule Radiology tests such as Nuclear Medicine Stress Tests, CT Scans, and MRI's. Should you have any questions Please Call our pulmonary nurse Linda Marie at [phone] or my virtual assistant for advertisers Puneet Leone at [phone] documented [facility] Work Phone: [phone] 331-131103-28-2025 History of Present illness Narrative* Rosalino Padron MD - 06/26/2024 11:30 AM EDT Images from the original note were not included. Department of Medicine Division of Pulmonary, Critical Care, and Sleep Medicine Consultation [address] Pulmonary Clinic/[facility] Patient was referred by his PCP (Dr. [...] surgery total pulmonary decortication in 2015 at [facility]. He was hospitalized in [place] from 03/02-03/04/2024 for acute hypoxic respiratory failure. [...] Review Audit Reviewed by Suly Johnston MA (Planner) on 06/26/24 at 1224 Medication Order Taking? Sig Documenting Provider Last Dose Status albuterol 90 mcg/actuation inhaler [id number] Yes INHALE 2 PUFFS BY MOUTH EVERY 4 HOURS NEEDED FOR SHORTNESS OF BREATH OR WHEEZING Historical Provider, Active amLODIPine (Norvasc) 5 mg tablet [id number] Take 1 tablet (5 mg) by mouth once daily. Historical Provider, Active aspirin 325 mg tablet [id number] Take 1 tablet (325 mg) by mouth once daily. Historical Provider, LORNActive atorvastatin (Lipitor) 80 mg tablet [id number] Take 1 tablet (80 mg) by mouth once daily at bedtime.Historical ProviderMD Active betamethasone, augmented, (Diprolene) 0.05 % lotion [id number] Yes APPLY TO RASH ON THE TRUNK OR SCALP 1-2 TIMES DAILY NEEDED Historical ProviderMD Active bismuth subsalicylate (Pepto Bismol) 262 mg chewable tablet [id number] Yes CHEW AND SWALLOW 2 TABLETS BY MOUTH 3 TIMES A DAY for 2 weeks. max 16 tablets per 24 hours Historical ProviderMD Active Brilinta 90 mg tablet [id number] Yes 1 tablet (90 mg). Historical Provider, Active busPIRone (Buspar) 10 mg tablet [id number] Take 1 tablet (10 mg) by mouth 3 times a day. Historical ProviderMD Active clopidogrel (Plavix) 75 mg tablet [id number] Yes Take 1 tablet (75 mg) by mouth early in the morning.. Historical ProviderMD Active dapagliflozin propanediol (Farxiga) 5 mg [id number] Yes Take 1 tablet (5 mg) by mouth once daily. Historical ProviderMD Active Dexcom G6 Sensor device [id number] Yes USE DIRECTED FOR CONTINUOUS BLOOD GLUCOSE MONITORING, CHANGE SENSOR EVERY 10 DAYS Historical ProviderMD Active DULoxetine (Cymbalta) [address] capsule [id number] Take 1 capsule (60 mg) by mouth once daily. Historical ProviderMD Active Eliquis 5 mg tablet [id number] Take 1 tablet (5 mg) by mouth 2 times a day. Historical ProviderMD Active ergocalciferol (Vitamin D-2) 1250 mcg (50,000 units) capsule [id number] Yes Take 1 capsule (1,250 mcg) by mouth. Historical ProviderMD Active fenofibrate (Tricor) 54 mg tablet [id number] Take 1 tablet (54 mg) by mouth once daily. Historical ProviderMD Active furosemide (Lasix) 40 mg tablet [id number] Yes Take 1 tablet (40 mg) by mouth. Historical ProviderMD Active glimepiride (Amaryl) 4 mg tablet [id number] Yes Take 1 tablet (4 mg) by mouth early in the morning..Historical ProviderMD Active glipiZIDE (Glucotrol) 5 mg tablet [id number] Yes Take 1 tablet (5 mg) by mouth. Historical ProviderMD Active HumuLIN R U-500, Conc, Insulin 500 unit/mL CONCENTRATED injection [id number] Yes INJECT 75 UNITS DAILY VIA CONTINUOUS SUBCUTANEOUS INFUSION. DISCARD VIAL AFTER 40 DAYS Historical ProviderMD Active Jardiance 25 mg [id number] Take 1 tablet (25 mg) by mouth once daily. Historical ProviderMD Active levothyroxine (Synthroid, Levoxyl) 112 mcg tablet [id number] Take 1 tablet (112 mcg) by mouth once daily. Gloria ProviderMD Active lisinopril 40 mg tablet [id number] Take 1 tablet (40 mg) by mouth once daily. Historical ProviderMD Active metFORMIN (Glucophage) 500 mg tablet [id number] Take 1 tablet (500 mg) by mouth 2 times daily (morning and late afternoon). Historical ProviderMD Active metoprolol succinate XL (Toprol-XL) 100 mg 24 hr tablet [id number] TAKE 1 TABLET BY MOUTH DAILY for heart Historical ProviderMD Active Mucinex DM 60-1,200 mg tablet extended release 12 hr [id number] Yes Take 1 tablet by mouth every 12 hours. Historical ProviderMD Active oxyCODONE-acetaminophen (Percocet) 5-325 mg tablet [id number] Take 1 tablet by mouth 2 times a day as needed. Historical ProviderMD Active pantoprazole (ProtoNix) 40 mg EC tablet [id number] Yes Take 1 tablet (40 mg) by mouth. Historical ProviderMD Active potassium citrate CR (Urocit-K-10) 10 mEq ER tablet [id number] Yes Take 1 tablet (10 mEq) by mouth twice a day. Historical ProviderMD Active predniSONE (Deltasone) 20 mg tablet [id number] Yes Take 0.5 tablets (10 mg) by mouth early in the morning.. Historical ProviderMD Active spironolactone (Aldactone) 50 mg tablet [id number] Yes Take 1 tablet (50 mg) by mouth once daily. Historical ProviderMD Active tamsulosin (Flomax) 0.4 mg 24 hr capsule [id number] Take 1 capsule (0.4 mg) by mouth once daily. Gloria ProviderMD Active traMADol (Ultram) 50 mg tablet [id number] Yes Take 1 tablet (50 mg) by [...] ab panel ordered on 06/26/2024. -will discuss MI on follow up. -Discussed antifibrotic therapy. Not [...] Rosalino Padron MD 06/26/2024 [facility] Work Phone: [phone]) 409-469003-28-2025 Instructions* Patient Instructions* Rosalino Padron MD - [...] evaluated for black mold. You can contact [facility] in [place], phone number is [phone] for a home inspection We will see you back in clinic in 1-2 months/weeks For scheduling purposes: Call to schedule a breathing or a walking test Call [phone] to schedule EKG's, Echocardiograms and Cardiopulmonary Stress Tests. Call [phone] to schedule Radiology tests such as Nuclear Medicine Stress Tests, CT Scans, and MRI's. Should you have any questions Please Call our pulmonary nurse Linda Marie at [phone] or my virtual assistant for advertisers Puneet Leone at [phone] documented in this [facility]Un[facility] Work Phone: [phone]) 764-242603-06-2025 Evaluation note* Diagnosis Onset Date Resolution Status [...] apnea) chroni c September 26, 2024 5:17pm [facility] Work Phone: [phone]) 580-452702-20-2025 Evaluation note* Diagnosis Onset Date Resolution Status [...] 2024 11:16am Fatigue noneactive September 15 12:53pm [facility] Work Phone: 1([phone]) 714-704802-07-2025 Telephone encounter Note* Telephone Encounter - Oziel [...] 1 year. Sooner prn. MD Jose Antonio [email or web address] Work Phone: [phone]) 181-490702-07-2025 Miscellaneous Notes* Telephone Encounter - Oziel Culp [...] prsalma. MD Jose Antonio documented in this [facility]02-05-2025 Note* Perioperative Nursing Note - Mendel River RN - 05/06/2024 4:02 PM EST Phase 2 care completed. Iv removed and dc instructions provided. Will dc to home with family Right groin site benign and neuro unchanged [id number]* Perioperative Nursing Note - Mendel River RN - 05/06/2024 4:02 PM EST Phase 2 care completed. Iv removed and dc instructions provided. Will dc to home with family Right groin site benign and neuro unchanged [facility] 0 [id number] Miscellaneous Notes* Perioperative Nursing Note - Mendel River RN - 05/06/2024 4:02 PM EST Phase 2 care completed. Iv removed and dc instructions provided. Will dc to home with family Right groin site benign and neuro unchanged NIH 0 documented in this [facility]02-05-2025 NotePatient: Krunal Leos Procedure Summary Date: 05/06/24 Room / Location: [facility] Special Procedures Anesthesia Start: 124 [...] discharged once all PACU criteria has been met.[facility]02-05-2025 NotePatient: Krunal Leos Procedure Summary Date: 05/06/24 Room / Location: [facility] Special Procedures Anesthesia Start: 1243 [...] Allowed opportunity for questions and acknowledgement of understanding.[facility]02-05-2025 Nurse Note* Se Hensley RN - 05/06/2024 1:47 PM EST Patient arrived from home, Dr. Jose Antonio schilling to speak with the patient regarding DCA with possible carotid stenting, consent obtained. Patient was placed supine on exam table prepped and draped in sterile fashion. Telemetry monitors placed, sedation provided by [employer]. Patient tolerated procedure well. Transfer to ICU[id number] Nurse Note* Se Hensley RN - 05/06/2024 1:47 PM EST Patient arrived from home, Dr. Jose Antonio schilling to speak with the patient regarding DCA with possible carotid stenting, consent obtained. Patient was placed supine on exam table prepped and draped in sterile fashion. Telemetry monitors placed, sedation provided by [employer]. Patient tolerated procedure well. Transfer to ICU. * Se Hensley RN - 05/05/2024 1:45 PM EST Report given to IR rn, neuro assessment completed along with groin site check. documented in this [facility]02-05-2025 Consult note* Rianna Yan MD [...] PLAN: 1. Obtain P2 Y12 study 2. [place] Brilinta 90 mg twice daily x 30 [...] 10 to 15 minutes. Was hospitalized at [place] and had Plavix added at that time. [...] Symptoms resolved. He was again hospitalized at [facility]. No medicationchanges were made. April 2024: Recurrent [...] care Cc: Mey Loya APRN - * [email or web address] Work Phone: [phone]) 446-813202-05-2025 Consult note* Rianna Yan MD - 05/06/2024 [...] PLAN: 1. Obtain P2 Y12 study 2. [place] Brilinta 90 mg twice daily x 30 [...] 10 to 15 minutes. Was hospitalized at [place] and had Plavix added at that time. [...] Symptoms resolved. He was again hospitalized at [facility]. No medicationchanges were made. April 2024: Recurrent [...] Loya APRN - * documented in this [facility]02-05-2025 NoteIVR History & Physical Inpatient consult to Anesthesiology-- Consult performed by: DEJUAN Leal CNP Consult ordered by: DEJUAN Mak CNP Name: Krunal Leos : 1965 (Age-58 y.o.) Date of Service: Pt seen/examined on 05/06/2024 Procedure Information Date/Time: 05/06/24 1000 Procedure: IR ANGIOGRAM CEREBRAL W POSSIBLE INTERVENTION Location: [facility] Special Procedures Chief Complaint: Carotid [...] for gait problem. Skin (more content not included)...[facility]02-05-2025 Note Patient: Krunal Leos Procedure Information Date/Time: 05/06/24 1000 Procedure: IR ANGIOGRAM CEREBRAL W POSSIBLE INTERVENTION Location: [facility] Special Procedures Relevant Problems Anesthesia (+) History [...] hyperplasia) No date: CHF (congestive heart failure) ([facility]) No date: Chronic idiopathic pulmonary fibrosis ([facility]) No date: CVA (cerebral vascular accident) ([facility]) No date: DM (diabetes mellitus), type 2 ([facility]) No date: HTN (hypertension) No [...] no echo on file, yearly appointments with full stack php developer in [place] - on insulin pump, has basal [...] infarct, age indeterminate Equipment Requests: Additional Equipment RequestsSouthwest [facility]02-[facility]-2025 Nurse Note* Se Hensley RN - 05/05/2024 1:45 PM EST Report given to IR rn, neuro assessment completed along with groin site check. [facility]01-27-2025 History of Present illness Narrative* Suzy Jauregui [...] Provider, Continuous Glucose Sensor (Dexcom G6 Sensor) [facility] Dexcom G6 Sensor Mis, USE DIRECTED FOR [...] Stallworth MD ergocalciferol (Vitamin D2) 1.25 MG (49743 UT) capsule Take 1 capsule by mouth [...] 2023. 10/06/23 01/06/24 Harmeet Stallworth MD HYDROcodone-acetaminophen ([place]) 5-325 MG tablet Take 1 tablet by [...] prior imaging and most recent CT from [facility]) and not his right carotid artery. [...] Jauregui MD Vascular Surgery documented in this [facility]01-25-2025 [facility]01-23-2025 Note* Care Coordination - Coreen Clifton [...] Main Entrance which islocated at [address] onto [address] from [facility]. You may use [employer]. Each patient to receive one validation ticket for [employer]. It is also possible to park in the Main Parking Garage. Proceed to bridge into hospital and check in with Same Day Surgery. [facility] [id number] NoteSpoke with patient. Reviewed instructions for procedure. [...] at [address] Turn onto [employer] in My Handbag from [employer]. You may use [employer] Park[employer]. Each patient to receive one validation ticket for [employer] Parking. It is also possible to park in the Main Parking Garage. Proceed to bridge into hospital and check in with Same Day Surgery.[facility]01-23-2025 Miscellaneous Notes* Care Coordination - Coreen [...] at [address] onto [employer] Hand[employer] from [employer]. You may use [employer] Parking. Each patient to receive one validation ticket for [employer] Parking. It is also possible to park in the Main Parking Garage. Proceed to bridge into hospital and check in with Same Day Surgery. documented in this [facility]01-22-2025 Evaluation note* Diagnosis Onset Date [...] Hyperlipidemia acute August 17, 2024 11:16am [facility] Work Phone: 1(765) 571-754701-16-2025 Evaluation note* Diagnosis Onset Date Resolution Status [...] 1:22pm Fatigue noneactive August 06, 2024 2:27pm [facility] Work Phone: 1(988) 210-412001-15-2025 [facility]01-12-2025 Evaluation note* Diagnosis Onset Date Resolution [...] April 162024 9:21am [facility]21am Obesity chronic April [...] Fatigue noneactive August 06, 2024 2:27pm [facility] Work Phone: 1(481) 916-560712-27-2024 [facility]12-04-2024 [facility]11-13-2024 Telephone encounter Note* Telephone Encounter - [...] we will determine when to resume Eliquis. [email or web address] Work Phone: 1(923) 471-265811-13-2024 Miscellaneous Notes* Telephone Encounter - DEJUAN Mak [...] Name of caller: Megan Contact phone number: [phone] Relationship to Patient: care team amanda Provider: Jose Antonio Practice: Endovascular Chief Complaint/Reason for Call: please send all lab work from September to fax [phone] HEATH Best time of day caller can be reached: any Patient advised that office/PCP has 24-48 business hours to return their call: No documented in this [facility]11-13-2024 Miscellaneous Notes* Telephone Encounter - [...] Name of caller: Megan Contact phone number: [phone] Relationship to Patient: care team amanda Provider: Jose Antonio Practice: Endovascular Chief Complaint/Reason for Call: please send all lab work from September to fax [phone] HEATH Best time of day caller can be reached: any Patient advised that office/PCP has 24-48 business hours to return their call: No documented in this encounterSLutheran HospitalZixyxv30-10-1506 Telephone encounter Note* Telephone Encounter - Lisa Sandoval - 02/12/2024 9:13 AM EST This patient left a voicemail returning a call regarding his test results with Dr. Hutton Please advise:) [facility] HospitalSdrjyk82-71-2706 Telephone encounter Note* Telephone Encounter - Ena Enriquez - 02/06/2024 7:52 AM EST Name of caller: Megan Contact phone number: [phone] Relationship to Patient: care team amanda Provider: Jose Antonio Practice: Endovascular Chief Complaint/Reason for Call: please send all lab work from September to fax [phone] HEATH Best time of day caller can be reached: any Patient advised that office/PCP has 24-48 business hours to return their call: No [facility] HospitalVtkaxv58-06-1930 [facility]10-07-2024 History of Present illness Narrative* Oziel Culp MD - 01/06/2024 11:00 AM EDT History of Present Illness: 58 yo man here for fu stroke and bilateral ICA stenosis. He originally presented 09/2023 for left hemiparesis and was transferred to [facility] from [facility]. He was found to have [...] episode of left hemiparesis. He went to [facility] and was found to have increased stroke burden of the right hemisphere. Vascular surgery wasconsulted and no surgical procedure was recommended. He had a 3rd event of left hemiparesis the following week and a CT was done at [facility]. At that time clopidogrel was added (in addition to ASA and Eliquis). The patient returned to normal and was discharged from the ED to home. 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 He is anonsmoker. He does report [...] 2023., Disp: 30 tablet, Rfl: 0 HYDROcodone-acetaminophen ([place]) 5-325 MG tablet, Take 1 tablet by [...] , Rfl: ergocalciferol (Vitamin D2) 1.25 MG (20060 UT) capsule, Take 1 capsule by mouth [...] and clopidogrel I have requested images from [facility] to evaluate distribution of new ischemic [...] Smoking cessation counseling: Yes documented in this [facility]08-15-2024 [facility]07-06-2024 Plan of care note* Care Plan [...] address these barriers include . Patient discharged. [facility] [id number] Miscellaneous Notes* Care Plan - Dariana Lawrence [...] Limits Permission given to speak with patient patient intake representative/caregiver as indicated: Confirmation of Payer with patient/family: Yes Payer Name: [employer] [place]: No Confirmation of Primary Care Physician: Confirmed [...] 0 x 3. He was transferred from [facility] with CVA/TIA. Vascular and Neurology have been consulted. Needs carotid US. Anticipate home with no needs when stable.. . Gris Keith RN documented in this [facility]07-06-2024 Nurse Note* Dariana Lawrence RN - 10/05/2023 2:38 PM EDT Patient discharged at this time. Patient alert and oriented, reviewed discharge instructions with patient and daughter. PIV removed, tele removed. [place] [id number] Nurse Note* Dariana Lawrence RN - 10/05/2023 2:38 PM EDT Patient discharged at this time. Patient alert and oriented, reviewed discharge instructions with patient and daughter. PIV removed, tele removed. * Dalila Helms RN - 10/03/2023 7:30 PM EDT Pt arrived from [facility], ambulated to bed, NIH scale 1, pt A&O x 4, denies numbness ortingling, denies headache or dizziness, denies needs at this time, call light and belongings withinreach, will monitor. documented in this [facility]07-06-2024 NoteDischarge Summary Krunal Leos : [...] a few days ago was admitted to [facility] after he had left facial [...] level of the V3 extending beyond the fmgze-tv-imbb with reconstitution. Atherosclerosis of the cavernous and [...] sodium chloride, sodium chlor (more content not included)...[facility] 10-05-2023 Hospital course Narrative* Harmeet Stallworth [...] a few days ago was admitted to [facility] after he had left facial [...] level of the V3 extending beyond the omgol-il-xjoa with reconstitution. Atherosclerosis of the cavernous and [...] Complexity: follow up within 7-14 calendar days (18704) [] Severe Complexity: follow up within 7 calendar days (18915) FOLLOW UP TESTING, PENDING RESULTS OR REFERRALS AT TRANSITIONAL CARE VISIT: [] Yes [] No PENDING STUDIES: DISPOSITION: Home FACILITY/HOME CARE AGENCY NAME: Follow up with Suzy Jauregui MD [address] [facility] [address] [facility] [address] Call Call your surgeon in 2 days & schedule follow-up, as needed or follow-up for ultrasound survaliance Oziel Culp MD [address] [facility] [phone] Schedule an appointment as soon as possible for a visit in 1 week(s) Pamela Morris MD [address] [facility] [facility] [address] [facility] [address] Schedule an appointment as soon as possible for a visit in 1 week(s) Radha Khan [address] [facility] [address] [facility] [phone] Schedule an appointment as soon as possible [...] MD 10/05/2023, 1:36 PM documented in this [facility]07-06-2024 NoteHospitalist Progress Note 10/05/2023 Subjective: Admit Date: 10/03/2023 PCP: RADHA KHAN Room#: W7-729/W6-239 A Brief Hospital course: Krunal Leos is a 58 y.o. male presenting with dizziness over the past 3 years however became more severe and more frequent a few days ago was admitted to [facility] after he had left facial [...] level of the V3 extending beyond the kwtdh-uv-xfco with reconstitution. Atherosclerosis of the cavernous and [...] not previously counted (eac (more content not included)...[facility]07-06-2024 History of Present illness Narrative* Harmeet Stallworth MD - 10/05/2023 10:16 AM EDT Hospitalist Progress Note 10/05/2023 Subjective: Admit Date: 10/03/2023 PCP: RADHA KHAN Room#: W3-574/W6-156 A Brief Hospital course: Krunal Leos is a 58 y.o. male presenting with dizziness over the past 3 years however became more severe and more frequent a few days ago was admitted to [facility] after he had left facial [...] level of the V3 extending beyond the xwscv-vi-brqb with reconstitution. Atherosclerosis of the cavernous and [...] Contact: Tia Leos Relation: Spouse Preferred language: Kyrgyz Tool Storage Attendant needed? No Secondary Emergency Contact: Clarisse Chris Mobile Relation: Daughter Preferred language: Kyrgyz Tool Storage Attendant needed? No Harmeet Stallworth MD Division of Hospitalist Medicine Inpatient Medical Services/[facility] [place] * Brenna Carrion - 10/05/2023 8:22 AM EDT Nutrition rescreen completed. Chart reviewed. Patient to be monitored and followed by the diet archives technician. Dietitian available upon request. * Fran Lewis PT - 10/04/2023 9:32 AM EDT Images from the original note were not included. PHYSICAL THERAPY [facility] Initial Evaluation Name/MRN: Krunal Leos ([id number]) Evaluation Date: 10/04/2023 Date of : 1965 Admission Date: 10/03/2023 7:30 PM Age: 58 y.o. Room[facility]Bed: [facility]435 A Discharge Recommendation: Home independently Equipment Needed: [...] , dtr, son-in-law. Two step entry to [employer]. Pt drives, works at [employer]. Son-in-law mows lawn and often orders groceries [...] of Care supervision is transferred to a [facility] Therapy Services Physical Therapist. Goals and/or treatment plan was established in collaboration with patient/family/other representatives. * Harmeet Stallworth MD - 10/04/2023 8:22 AM EDT Hospitalist Progress Note 10/04/2023 Subjective: Admit Date: 10/03/2023 PCP: RADHA KHAN Room#: W4-435/W4-434 A Brief Hospital course: Krunal Leos is a 58 y.o. male presenting with dizziness over the past 3 years however became more severe and more frequent a few days ago was admitted to [facility] after he had left facial [...] level of the V3 extending beyond the lcjgt-zh-vfoj with reconstitution. Atherosclerosis of the cavernous and [...] Contact: Tia Leos Relation: Spouse Preferred language: Kyrgyz Tool Storage Attendant needed? No Secondary Emergency Contact: Clarisse Chris Mobile Relation: Daughter Preferred language: Kyrgyz Tool Storage Attendant needed? No Harmeet Stallworth MD Division of Hospitalist Medicine Inpatient Medical Services/[facility] [place] documented in this encounterSLutheran HospitalExbqyf26-23-4219 Plan of care note* Care Plan - [...] to address these barriers include reorient frequently. [facility] [id number] Hospital Discharge instructions* Discharge Instructions* Nely Lambert [...] and the need for follow-up with a physician/SOFTWARE SUPPORT REPRESENTATIVE/PA after discharge. NELY LAMBERT RN on 10/04/23 [...] through Care Everywhere. * Recovery After Stroke (Kyrgyz) * Caring for a Loved One After a Stroke (Kyrgyz) * Stroke (Kyrgyz) documented in this [facility]07-05-2024 Note* Care Coordination - Gris Keith RN - 10/04/2023 11:19 AM EDT Care Managment Initial Assessment Date: 10/04/2023 Patient Name: Krunal Leos : 1965 Patient Information Source of Information: Patient Cognition/Language: WFL - Within Functional Limits Permission given to speak with patient patient intake representative/caregiver as indicated: Confirmation of Payer with patient/family: Yes Payer Name: Medical [place] : No Confirmation of Primary Care Physician: [...] 0 x 3. He was transferred from [facility] with CVA/TIA. Vascular and Neurology have been consulted. Needs carotid US. Anticipate home with no needs when stable.. . Gris Keith RN [facility] HospitalBfugvo34-77-7935 Note* Care Coordination - Gris Keith RN - 10/04/2023 11:19 AM EDT Care Managment Initial Assessment Date: 10/04/2023 Patient Name: Krunal Leos : 1965 Patient Information Source of Information: Patient Cognition/Language: WFL - Within Functional Limits Permission given to speak with patient patient intake representative/caregiver as indicated: Confirmation of Payer with patient/family: Yes Payer Name: Medical [place]: No Confirmation of Primary Care Physician: Confirmed [...] 0 x 3. He was transferred from [facility] with CVA/TIA. Vascular and Neurology have been consulted. Needs carotid US. Anticipate home with no needs when stable.. . Gris Keith RN [facility]07-05-2024 Consult note* Oziel Culp MD - 10/04/2023 10:09 AM EDTAssociated Order(s): Inpatient consult to Endovascular Neurology-- Inpatient consult to Endovascular Neurology-- Consult performed by: Mey Loya APRN - CONCRETE INSPECTOR Consult ordered by: Raphael Stone MD Reason for consult: vertebbral artery occlusion/ stenosis History Of Present Illness Krunal Leos is a 58 y.o. male presenting with left face and hand weakness in setting of chronic dizziness. Pt does have history of atrial fibrillation on Eliquis. 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 Coordination Bxkjab-wi-dhzl, rapid alternating movements and hazc-jb-pimh normal bilaterally without dysmetria. Awake and alert [...] Team, ., . Personal review of: Imaging,Labs,ECHO},.},. [facility] Phone: 1(621) 686-258807-05-2024 Consult note* Oziel Culp MD - 10/04/2023 10:09 AM EDTAssociated Order(s): Inpatient consult to Endovascular Neurology-- Inpatient consult to Endovascular Neurology-- Consult performed by: Mey Loya, DEJUAN - CONCRETE INSPECTOR Consult ordered by: Raphael Stone MD Reason for consult: vertebbral artery occlusion/ stenosis History Of Present Illness Krunal Leos is a 58 y.o. male presenting with left face and hand weakness in setting of chronic dizziness. Pt does have history of atrial fibrillation on Eliquis. 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 Coordination Dbadcq-od-uuea, rapid alternating movements and xpgp-bm-kqwv normal bilaterally without dysmetria. Awake and alert [...] Name: Krunal Leos Patient : 1965 Acct: [id number] Date of Admission: 10/03/2023 [facility] A PCP: RADHA KHAN History of Present Ilness: 58 y.o. is man with the chief Complaint of: transferred from [facility] evaluation of severe cerebrovascular disease presenting with [...] (Glucotrol) tablet 5 mg, 5 mg, Oral, qAFREEMAN ORTHOPAEDICS & SPORTS MEDICINE, Michael Rico MD, 5 mg at 10/04/23554 [...] reflex present -X Palate:intact -XI Shoulder shrug: {INTACT/ABNORMAL:[id number]::intactNormal -XII Tongue movement: Normal Funduscopic Exam: normal, [...] 401 ms QTC Interval 453 ms P [place] 12 degrees QRS [place] -16 degrees T Wave [place] 16 degrees MI Interval 160 ms POCT glucose meter Collection [...] the left vertebral artery MRI brain from [facility] review ASSESSMENT / PLAN / SUGGESTIONS : [...] of Eliquis last night - follow up [facility] service evaluation - further plans to follow [...] agreeable to the plan. documented in this [facility]07-05-2024 NotePHYSICAL THERAPY [facility] Initial Evaluation Name/MRN: Krunal Leos ([id number]) Evaluation Date: 10/04/2023 Date of : 1965 Admission Date: 10/03/2023 7:30 PM Age: 58 y.o. Room[facility]: [facility] A Discharge Recommendation: Home independently Equipment Needed: [...] , dtr, son-in-law. Two step entry to [employer] home. Pt drives, works at [employer]. Son-in-law mows lawn and often orders groceries [...] of Care supervision is transferred to a [facility] Therapy Services Physical Therapist. Goals and/or treatment plan was established in collaboration with patient/family/other representatives.[facility] [id number] Consult note* Pili Connolly MD - 10/04/2023 8:31 AM EDT Associated Order(s): IP CONSULT TO NEUROLOGY; IP CONSULT TO STROKE TEAM Images from the original note were not included. INITIAL CONSULT NOTE. STROKE SERVICE Patient Name: Krunal Leos Patient : 1965 Acct: [id number] Date of Admission: 10/03/2023 [facility]: [facility] A PCP: RADHA KHAN History of Present Ilness: 58 y.o. is man with the chief Complaint of: transferred from [facility] evaluation of severe cerebrovascular disease presenting with [...] reflex present -X Palate:intact -XI Shoulder shrug: {INTACT/ABNORMAL:[id number]::intactNormal -XII Tongue movement: Normal Funduscopic Exam: normal, [...] 401 ms QTC Interval 453 ms P [place]ult[place] 12 degrees QRS [place] -16 degrees T Wave [place] 16 degrees MI Interval 160 ms POCT glucose meter Collection [...] the left vertebral artery MRI brain from [facility] review ASSESSMENT / PLAN / SUGGESTIONS : [...] to be involved in this patient's care. [employer] Phone: 1(475) 300-367807-05-2024 NoteHospitalist Progress Note 10/04/2023 Subjective: Admit Date: 10/03/2023 PCP: RADHA KHAN Room#: W4-435/W4-435 A Brief Hospital course: Krunal Leos is a 58 y.o. male presenting with dizziness over the past 3 years however became more severe and more frequent a few days ago was admitted to [facility] after he had left facial [...] level of the V3 extending beyond the fjcpy-gl-gogb with reconstitution. Atherosclerosis of the cavernous and [...] carotids -Neurology consultation -En (more content not included)...[facility]07-05-2024 Consult note * Karol Melissa MD [...] of Eliquis last night - follow up [facility] service evaluation - further plans to follow [...] and he is agreeable to the plan. [facility] HospitalPejazk94-00-2654 History and physical note* Michael Rico MD - 10/03/2023 9:26 PM EDT History Of Present Illness Krunal Leos is a 58 y.o. male presenting with dizziness over the past 3 years however became more severe and more frequent a few days ago was admitted to [facility] after he had left facial [...] level of the V3 extending beyond the nohxk-da-lpbp with reconstitution. Atherosclerosis of the cavernous and [...] consultation 3. Continue to monitor glycemic status. [employer] Phone: 1(339) 675-754707-04-2024 NoteHistory Of Present Illness Krunal Leos is a 58 y.o. male presenting with dizziness over the past 3 years however became more severe and more frequent a few days ago was admitted to [facility] after he had left facial [...] level of the V3 extending beyond the xpfvz-zr-stgi with reconstitution. Atherosclerosis of the cavernous and [...] Neurology consultation 3. Continue to monitor glycemic status.[facility] [id number] History and physical note* Michael Rico MD - 10/03/2023 9:26 PM EDT History Of Present Illness Krunal Leos is a 58 y.o. male presenting with dizziness over the past 3 years however became more severe and more frequent a few days ago was admitted to [facility] after he had left facial [...] level of the V3 extending beyond the buqwa-re-fust with reconstitution. Atherosclerosis of the cavernous and [...] to monitor glycemic status. documented in this [facility]07-04-2024 Nurse Note* Dalila Helms RN - 10/03/2023 7:30 PM EDT Pt arrived from [facility], ambulated to bed, NIH scale 1, pt A&O x 4, denies numbness ortingling, denies headache or dizziness, denies needs at this time, call light and belongings [facility], will monitor. [facility] HospitalPaejoc13-03-0935 Note Discharge Instructions Thank you for allowing [facility] to assist you with your healthcare needs. [...] to receive it can visit one of [facility] vaccine clinics. There are many vaccine clinic locations within the [facility]. For locations and available times, please visit [email or web address] It is important to note that some COVID mobile vaccine clinics are held outdoors and may be canceled in rainy or stormy conditions. To learn more about pediatric vaccinations (ages 5-11), we invite you to visit the [facility] webpage. https://www.[email or web address].org/pages/[email or web address]-Maqttftfxhf-Pbvqfrgfgc-Fhxca-Rdf stions.htmlTo learn more about the COVID-19 vaccine, we invite you to visit the CDC website for a list of frequently asked questions.https://www.cdc.gov/coronavirus/2019-ncov/vaccines/faq.html [employer] Patient Portal Access Instructions: Stay connected with your healthcare team and access your personal medical information anytime with the [employer] Patient Portal. Please follow the directions below to create your [employer] account: 1.Access the email account you provided upon registration to the hospital/physician office.2.Look for an invitation email from [facility].3.Open the email and access the invitation link: AcceptInvitation to [employer].4.Fill in the required goldberg to create your account. To access your account, visit [employer]. Click the blue button labeled Access Patient [...] who you will allowto register on the [employer] Patient Portal for access to your information. You can also access the [employer] Patient Portal on the [email or web address] Anywhere collin. Simply click on Patient Portal and then log into your account. If you would like to receive a full copy of your medical records, please contact the [facility] Medical Records Department by calling [phone], Saturday through Saturday between 8 a.m. and [...] Call your local pharmacy or go to http://tokia.lt.[employer]/0E1Zw6l to find one close to you.3.Make use of household items: Use cat litter or old coffee grounds to dispose medications if other options arenot available. Mix your drugs with these household products, seal them in an airtight container andthrow it into the garbage. Call [facility]: [phone] to be sure your drugs can be [...] that I should contact my do ctor. 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 Patient presented to [facility] emergency department on 10/01/2023 with increased weakness, [...] vertebral artery from the origin to the D9lvhhwfe. Moderate stenosis of bilateral internal carotid arteries [...] Dobbs, vascular surgeon, who recommended transfer to [facility] for [facility]. [facility] [facility]. Imaging reports [...] by DOMINIC FLEMING on 10/03/2023 04:22 PM [facility]07-03-2024 Note ORIGINAL EXAMINATION: CTA OF THE [...] Sign Date: 10/03/2023 10:41:49 AM Ordering Provider: [facility]07-03-2024 Note ORIGINAL EXAMINATION: CTA OF [...] Date: 10/03/2023 10:41:06 AM [facility]ing [facility]* Exam Date Time Procedure Performing Provider Status 10/02/23 2:41 PM Echocardiogram, Adul t with Bubble Study- Auth (Verified) [facility] 07-03-2024 Nurse Progress note ABDULLAHI AGUIRRE APRN, CNP CONSULTED STEM FOR NEURO CONSULT 1319. ER REGISTRATION NOTIFIED. Digitally Signed by Nelly Marsh RN on 10/02/2023 01:28 PM [facility]07-03-2024 Evaluation + Plan noteExtracted from: Title:History and Physical Author:ABDULLAHI AGUIRRE APRN-CONCRETE INSPECTOR Date:10/02/23 1. CVA (cerebrovascular acci dent) Acute, [...] collaborating with physician, and documenting in chart. [facility] 07-03-2024 Nurse Progress note ABDULLAHI AGUIRRE APRN,NAV CONSULTED STEM FOR NEURO CONSULT 1319. ER REGISTRATION NOTIFIED. Digitally Signed by Nelly Marsh RN on 10/02/2023 01:28 PM [facility]07-03-2024 Note Date of Service 10/02/2023 Chief Complaint states was at [facility], felt maybe a little weak, siad that [...] type 2 diabetes and hypothyroidism, presented to [facility] emergency department with the chief complaint of weakness and possible right facial droop. [facility] and suddenlyfelt a little weak in [...] by ABDULLAHI AGUIRRE on 10/02/2023 12:50 PM [facility]07-03-2024 Note ORIGINAL HISTORY: TIA COMPARISON: Head [...] Date: 10/02/2023 8:38:30 AM [facility]ing [facility] Note ADDENDUM ADDENDUM: I agree [...] Sign Date: 10/01/2023 11:46:49 PM Ordering Provider: [facility]07-02-2024 Note ORIGINAL EXAMINATION: ONE XRAY VIEW [...] Sign Date: 10/01/2023 9:13:56 PM Ordering Provider: [facility]07-02-2024 Note Sinus rhythm Atrial premature complexes Left ventricular hypertrophy Inferior infarct, old EKG interpretation is noted and agreed to in [facility]. The interpretation of this patient's EKG contributed directly to the care and management of this patient. Electronic Signature: TITA PARISH DO 10/01/2023 20:51:[address] [place] [address] 12-15-2023 Procedure [facility] 02-18-2023 Procedure [facility]05-05-[address] Ospina [facility] August 03, 2022 10:12am Note Date/Time August 03, 2022 10:12a m [facility] Medical Records Department [address] [place] [address] Discharge Summary 08/03/22 1011 MR#: [id number] Acct: [id number] Name: KRUNAL LEOS Rep #:[id number] : 1965 56 From: Eduin Ospina MD PCP: Dr. Radha Khan MD Status:ADM TALIB Location: [place] [address] Providers Date of Admission: 08/01/22 Date of [...] 81 mg PO DAILY@0800 03/30/20 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 meter,continuous (Indigoz G6 Treatment Manager) #1 ea 07/26/20 pen needle, diabetic 31 gauge x 08/14 #1,200 ea 12/22/20 pen needle, diabetic 32 gauge x (BD Ultra-Fine Kiki Pen Needle) #150 ea 06/01/21 atorvastatin 80 mg tablet (Lipitor) 80 mg PO QHS cholesterol 09/04/21 metoprolol succinate 100 mg tablet,extended release 24 hr 100 mg PO DAILY #90 tabs 12/08/21 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 sensor (Indigoz G6 Sensor device) #3 ea 12/29/21 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 transmitter (Indigoz G6 Transmitter device) #1 ea 12/29/21 amlodipine [...] Discharge Orders/Prescriptions Prescriptions: Continued (DME) Dexcom G6 Treatment Manager Misc See Rx Instructions .ROUTE .MEDSUPPLY Qty: [...] Self Care Charges/Coding Visit Charges Inpatient E&M: 07768 Disch Hosp >30min 08/03/22 1012 <Electronically signed by Eduin Ospina MD> Cosigner Signature (if applicable): CC: Dr. Radha Khan MD; Dr. Eduin Ospina MD~ Signed [facility] Work Phone: 1(510) 984-640505-05-[address] Ospina [facility] May 5th, 2023 10:11am Note Date/Time August 03, 2022 7:37am [facility] Medical Records Department [address] [place] [address] Progress Note - Hospitalist 08/03/22 0737 MR#: [id number] Acct: [id number] Name: KRUNAL LEOS Rep #:[id number] : 1965 56 From: Eduin Ospina MD PCP: Dr. Radha Khan MD Status:ADM TALIB Location: [place] [address] Reason for Visit Reason for Visit: Diagnoses [...] 40 Minutes Charges/Coding Visit Charges Inpatient E&M: 36962 Subs Hosp L2 08/03/22 1011 <Electronically signed by Eduin Ospina MD> Cosigner Signature (if applicable): CC: ~ Signed [facility] Work Phone: 1(577) 704-269705-04-[address] Ospina [facility] August 02, 2022 10:50am Note Date/Time August 02, 2022 8:30am [facility] Medical Records Department [address] [facility] [place] [address] Progress Note - Hospitalist 08/02/22 0828 MR#: [id number] Acct: [id number] Name: KRUNAL LEOS Rep #:[id number] : 1965 56 From: Eduin Ospina MD PCP: Dr. Radha Khan MD Status:ADM TALIB Location: [place] [address] Reason for Visit Reason for Visit: Diagnoses [...] (Auto) 70.4 H, Lymph % (Auto) 13.4L, Island % (Auto) 11.7 H, Eos % (Auto) [...] % (Auto) 59.7, Lymph % (Auto) 21.5, Island % (Auto) 14.4 H, Eos % (Auto) [...] 40 Minutes Charges/Coding Visit Charges Inpatient E&M: 11399 Subs Hosp L2 08/02/22 1050 <Electronically signed by Eduin Ospina MD> Cosigner Signature (if applicable): CC: ~ Signed [facility] Work Phone: 1(480) 907-278905-04-2023 History and physical note Author Dr. Bell [facility] August 02, 2022 2:34am Note Date/Time August 01, 2022 10:32p m [facility] Medical Records Department [address] [place] [address] H&P Exam - Hospitalist 08/01/222 MR#: [id number] Acct: [id number] Name: KRUNAL LEOS Rep #:[id number] : 1965 56 From: Cookie Bell MD PCP: Dr. Radha Khan MD Status:ADM TALIB Location: [place] [address] HPI - General General Date of Admission: [...] neuropathy, Hx TIA who presents to the [facility] ED on 08/01/22 with history of ongoing [...] IV x1, meclizine 25 mg p.o. x1. [facility] Medical History (Updated 08/02/22 @ 02:28 [...] Last Taken 05/09/22] 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 meter,continuous (Dexcom G6 Treatment Manager) #1 ea 07/26/20 [Rx Last Taken Unknown] [...] (Auto) 70.4 H, Lymph % (Auto) 13.4L, Island % (Auto) 11.7 H, Eos % (Auto) [...] neuropathy, Hx TIA who presents to the [facility] ED on 08/01/22 with history of ongoing [...] 75 minutes. Charges/Coding Visit Charges Inpatient E&M: 26744 Init Hosp L3 Procedures Hospitalists Procedures: 10104 Advncd Care Plan 30 Min 08/02/22 0234 <Electronically signed by Cookie Bell MD> Cosigner Signature (if applicable): CC: Dr. Radha Khan MD; Dr. Cookie Bell MD~ Signed [facility] Work Phone: 1(243) 582-179105-04-[address] Hill [facility] August 01, 2022 11:55pm Note Date/Time August 01, 2022 8:08pm [facility] Medical Records Department [address] [place] [address] Emergency Department Summary 08/01/22 MR#: [id number] Acct: [id number] Name: KRUNAL LEOS Rep #:[id number] : 1965 56 From: Nely Hill MD PCP: Dr. Radha Khan MD Status:ADM TALIB Location: [place] [address] HPI History of Present Illness Chief Complaint: [...] equivocal and norecommendation for surgery was made. [facility] Medical History Acute kidney injury Anemia [...] Last Taken 05/09/22] 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 meter,continuous (Dexcom G6 Treatment Manager) #1 ea 07/26/20 [Rx Last Taken Unknown] [...] Medical decision making narrative: Patient placed on pvc monitor. EKG obtained to evaluate for cardiac [...] 70.4 H Lymph % (Auto) 13.4 L Island % (Auto) 11.7 H Eos % (Auto) [...] (Auto) Neut % (Auto) Lymph % (Auto) Island % (Auto) Eos % (Auto) Baso % [...] our attention. I spoke with neurology at [facility]. Given that the patient is [...] Vertigo Prescriptions: No Action (DME) Dexcom G6 Treatment Manager Misc See Rx Instructions .ROUTE .MEDSUPPLY Qty: [...] Provider] - Disposition Disposition: Acute Care Hospital [facility] What to do if you have Problems For any increased pain, shortness of breath, bleeding, nausea or vomiting, chestpain, or any unexpected problems, contact your Primary Care Provider. Call [facility] ([phone]) or report to the closest Emergency Room. Call 911 if necessary. 08/01/22 3966 <Electronically signed by Nely Hill MD> Cosigner Signature (if applicable): CC: Dr. Radha Khan MD ~ Signed [facility] Work Phone: Evaluation note* Diagnosis Onset [...] heart failure) chronic KIANNA (obstructive sleep apnea) [place] Work Phone: Evaluation note* Diagnosis Onset Date [...] (obstructive sleep apnea) chronic Diabetes chronic Obesity [place] Work Phone: Evaluation note* Diagnosis Onset Date [...] Paroxysmal atrial fibrillation acute Essential (primary) hypertension [place] Work Phone: Evaluation note* Diagnosis Onset Date Resolution Status Left carotid bruit acute Paroxysmal atrial fibrillation acute Essential (primary) hypertension chronic Diabetes chronic Essential (primary) hypertension chronic Obesity chronic Dyspnea on exertion acute Chronic diastolic CHF (congestive heart failure) chronic KIANNA (obstructive sleep apnea) chronic Dyspnea on exertion acute Left carotid bruit acute Paroxysmal atrial fibrillation acute Essential (primary) hypertension [place] Work Phone: Evaluation note* Diagnosis Onset Date Resolution Status Diabetes chronic Essential (primary) hypertension chronic Obesity chronic Dyspnea on exertion acute Chronic diastolic CHF (congestive heart failure) chronic KIANNA (obstructive sleep apnea) chronic Dyspnea on exertion acute Left carotid bruit acute Paroxysmal atrial fibrillation acute Essential (primary) hypertension chronic Diabetes chronic Essential (primary) hypertension chronic Obesity [place] Work Phone: Evaluation note* Diagnosis Onset Date [...] Paroxysmal atrial fibrillation acute Essential (primary) hypertension [place] Work Phone: Evaluation note* Diagnosis Onset Date [...] apnea) chronic Diabetes chronic Hypothyroidism chronic Obesity [place] Work Phone: Evaluation note* Diagnosis Onset Date [...] apnea) chronic Diabetes chronic Hypothyroidism chronic Obesity [place] Work Phone: Evaluation note* Diagnosis Onset Date [...] chronic Hypothyroidism chronic Obesity chronic Vertigo acute [facility] Work Phone: Evaluation note* Diagnosis Onset Date Resolution Status Chronic diastolic CHF (congestive heart failure) chronic Chronic respiratory failure with hypoxia chronic Dyspnea on exertion chronic Obesity chronic KIANNA (obstructive sleep apnea) chronic Diabetes chronic Hypothyroidism chronic Obesity chronic Vertigo acute Diabetes chronic Essential (primary) hypertension chronic Insulin pump titration chron ic Obesity chronic Presence of insulin pump chr onic [facility] Work Phone: Evaluation note* Diagnosis Onset Date Resolution Status Vertigo acute Diabetes chronic Essential (primary) hypertension chronic Insulin pump titration chron ic Obesity chronic Presence of insulin pump chr on Carotid stenosis acute Double vision acute Left carotid bruit acute Vertigo acute [facility] Work Phone: Evaluation note* Diagnosis Onset Date Resolution Status Carotid stenosis acute Double vision acute Left carotid bruit acute Vertigo acute Post op infection acute Thyroid nodule acute CKD (chronic kidney disease) chronic Diabetes chronic Hypothyroidism chronic Microalbuminuria chronic Obesity chronic Multiple thyroid nodules acu te [facility] Work Phone: Evaluation note* Diagnosis Onset Date Resolution Status Post op infection acute Thyroid nodule acute CKD (chronic kidney disease) chronic Diabetes chronic Hypothyroidism chronic Microalbuminuria chronic Obesity chronic Multiple thyroid nodules acu te CKD (chronic kidney disease) chronic Diabetes chronic Hypothyroidism chronic Microalbuminuria chronic Neuropathy chronic Obesity [place] Work Phone: Evaluation note* Diagnosis Onset Date [...] on exertion chronic Essential (primary) hypertension chronic [facility] Work Phone: Evaluation note* Diagnosis Onset [...] hypertension chronic Multiple thyroid nodules acu te [facility] Work Phone: Evaluation note* Diagnosis Onset [...] nodules acu te Polyneuropathy acute Hyperlipidemia chronic [facility] Work Phone: Evaluation note* Diagnosis Onset [...] cerebrovascular accident (CVA) acute Peripheral vestibulopathy ac la posta Polyneuropathy acute Hyperlipidemia chronic Double vision resolved [facility] Work Phone: Evaluation note* Diagnosis Onset Date Resolution Status CKD (chronic kidney disease) chronic Diabetes chronic Hypothyroidism chronic Microalbuminuria chronic Neuropathy chronic Obesity chronic Left carotid bruit acute Paroxysmal atrial fibrillation acute Dyspnea on exertion chronic Essential (primary) hypertension chronic Multiple thyroid nodules acu te History of TIA (transient ischemic attack) acute Ischemic cerebrovascular accident (CVA) acute Peripheral vestibulopathy ac [place] posta Polyneuropathy acute Hyperlipidemia chronic Double vision resolved [facility] Work Phone: Evaluation note* Diagnosis Onset Date Resolution Status Left carotid bruit acute Paroxysmal atrial fibrillation acute Dyspnea on exertion chronic Essential (primary) hypertension chronic Multiple thyroid nodules acu te History of TIA (transient ischemic attack) acute Ischemic cerebrovascular accident (CVA) acute Peripheral vestibulopathy ac [place] post[place] Polyneuropathy acute Hyperlipidemia chronic Double vision resolved CKD (chronic kidney disease) chronic Diabetes chronic Essential (primary) hypertension chronic Hypothyroidism chronic Neuropathy chronic Obesity chronic Carotid stenosis acute History of TIA (transient ischemic attack) acute Ischemic cerebrovascular accident (CVA) acute Polyneuropathy acute [facility] Work Phone: Evaluation note* Diagnosis Onset Date Resolution Status CKD (chronic kidney disease) chronic Diabetes chronic Essential (primary) hypertension chronic Hypothyroidism chronic Neuropathy chronic Obesity chronic History of TIA (transient ischemic attack) acute Ischemic cerebrovascular accident (CVA) acute Polyneuropathy acute Carotid stenosis chronic Carotid stenosis chronic Carotid stenosis chronic [facility] Work Phone: Evaluation note* Diagnosis Cerebrovascular accident (CVA), unspecified mechanism (HCC)- Primary Cerebrovascular accident (CVA), unspecified mechanism (HCC) documented in this encounter [facility]* Diagnosis Bilateral carotid artery stenosis- Primary Occlusion and stenosis of carotid artery without mention of cerebral infarction Ischemic cerebrovascular accident (CVA) (HCC) documented in this encounter [facility]* Diagnosis Chronic kidney disease, unspecified CKD stage- Primary documented in this encounter [facility]* Diagnosis Ischemic cerebrovascular accident (CVA) (HCC)- Primary Bilateral carotid artery stenosis Occlusion and stenosis of carotid artery without mention of cerebral infarction documented in this encounter [facility]* Diagnosis Bilateral carotid artery occlusion Occlusion and stenosis of carotid artery without mention of cerebral infarction [facility]* Diagnosis Cerebrovascular accident (CVA), unspecified mechanism (HCC)- Primary Bilateral carotid artery stenosis Occlusion and stenosis of carotid artery without mention of cerebral infarction [facility]* Diagnosis Ischemic cerebrovascular accident (CVA) (HCC) Bilateral carotid artery stenosis Occlusion and stenosis of carotid artery without mention of cerebral infarction [facility]* Diagnosis Bilateral carotid artery stenosis- Primary Occlusion and stenosis of carotid artery without mention of cerebral infarction documented in this encounter [facility]* Diagnosis ILD (interstitial lung disease) (Multi)- Primary Postinflammatory pulmonary fibrosis Pulmonary hypertension (Multi) Other chronic pulmonary heart diseases Chronic respiratory failure with hypoxia documented in this encounter [facility] Work Phone: Evaluation note* Diagnosis ILD (interstitial lung disease) (Multi) Postinflammatory pulmonary fibrosis documented in this encounter [facility] Work Phone: Evaluation note* Diagnosis Pulmonary hypertension (Multi) Other chronic pulmonary heart diseases documented in this encounter [facility] Work Phone: Evaluation note* Diagnosis ILD (interstitial lung disease) (Multi) Postinflammatory pulmonary fibrosis documented in this encounter [facility] Work Phone: Evaluation note* Diagnosis ILD (interstitial lung disease) (Multi)- Primary Postinflammatory pulmonary fibrosis Chronic respiratory failure with hypoxia KIANNA (obstructive sleep apnea) Obstructive sleep apnea (adult) (pediatric) BMI 40.0-44.9, adult (Multi) Diastolic heart failure, unspecified HF chronicity documented in this encounter [facility] Work Phone: Evaluation note* Diagnosis ILD (interstitial lung disease) (Multi) Postinflammatory pulmonary fibrosis documented in this encounter [facility] Work Phone: Evaluation note* Diagnosis ILD (interstitial lung disease) (Multi)- Primary Postinflammatory pulmonary fibrosis Chronic respiratory failure with hypoxia KIANNA (obstructive sleep apnea) Obstructive sleep apnea (adult) (pediatric) BMI 40.0-44.9, adult (Multi) Diastolic heart failure, unspecified HF chronicity documented in this encounter [facility] Work Phone: Evaluation note* Diagnosis ILD (interstitial lung disease) (Multi) Postinflammatory pulmonary fibrosis documented in this encounter [facility] Work Phone: History of Present illness Narrative* Rosalino Padron MD - 08/28/2024 1:00 PM EDT Images from the original note were not included. Department of Medicine Division of Pulmonary, Critical Care, and Sleep Medicine Consultation [address] [facility] Patient was referred by his PCP (Dr. [...] surgery total pulmonary decortication in 2016 at [facility]. He was hospitalized in [place] from 03/02-03/04/2024 for acute hypoxic respiratory failure. [...] Review Audit Reviewed by Heavenly Sparks MA (Planner) on 08/28/24 at 1158 Medication Order Taking? Sig Documenting Provider Last Dose Status albuterol 90 mcg/actuation inhaler [id number] INHALE 2 PUFFS BY MOUTH EVERY 4 HOURS NEEDED FOR SHORTNESS OF BREATH OR WHEEZING Historical ProviderMD Active amLODIPine (Norvasc) 5 mg tablet [id number] Take 1 tablet (5 mg) by mouth once daily. Historical ProviderMD Active aspirin 325 mg tablet [id number] Take 1 tablet (325 mg) by mouth once daily. Historical ProviderLORNActive atorvastatin (Lipitor) 80 mg tablet [id number] Take 1 tablet (80 mg) by mouth once daily at bedtime.Historical ProviderMD Active betamethasone, augmented, (Diprolene) 0.05 % lotion [id number] APPLY TO RASH ON THE TRUNK OR SCALP 1-2 TIMES DAILY NEEDED Historical ProviderMD Active bismuth subsalicylate (Pepto Bismol) 262 mg chewable tablet [id number] CHEW AND SWALLOW 2 TABLETS BYMOUTH 3 TIMES A DAY for 2 weeks. max 16 tablets per 24 hours Patient not taking: Reported on 08/07/2024 Historical ProviderMD Active Brilinta 90 mg tablet [id number] 1 tablet (90 mg). Historical ProviderMD Active busPIRone (Buspar) 10 mg tablet [id number] Take 1 tablet (10 mg) by mouth 3 times a day. Historical ProviderMD Active clopidogrel (Plavix) 75 mg tablet [id number] Take 1 tablet (75 mg) by mouth early in the morning.. Historical ProviderMD Active dapagliflozin propanediol (Farxiga) 5 mg [id number] Take 1 tablet (5 mg) by mouth once daily. Gloria Rahman MD Active Dexcom G6 Sensor device [id number] USE DIRECTED FOR CONTINUOUS BLOOD GLUCOSE MONITORING, CHANGE SENSOR EVERY 10 DAYS Historical MD Lacey Active DULoxetine (Cymbalta) [address] capsule [id number] Take 1 capsule (60 mg) by mouth once daily. Gloria Rahman MD Active Eliquis 5 mg tablet [id number] Take 1 tablet (5 mg) by mouth 2 times a day. Historical ProviderMD Active ergocalciferol (Vitamin D-2) 1250 mcg (50,000 units) capsule [id number] Take 1 capsule (1,250 mcg) by mouth. Historical ProviderMD Active fenofibrate (Tricor) 54 mg tablet [id number] Take 1 tablet (54 mg) by mouth once daily. Historical MD Lacey Active furosemide (Lasix) 40 mg tablet [id number] Take 1 tablet (40 mg) by mouth. Historical ProviderMD Active glimepiride (Amaryl) 4 mg tablet [id number] Take 1 tablet (4 mg) by mouth early in the morning.. Patient not taking: Reported on 08/07/2024 Gloria Rahman MD Active glipiZIDE (Glucotrol) 5 mg tablet [id number] Take 1 tablet (5 mg) by mouth. Patient not taking: Reported on 08/07/2024 Gloria Rahman MD Active HumuLIN R U-500, Conc, Insulin 500 unit/mL CONCENTRATED injection [id number] INJECT 75 UNITS DAILY VIA CONTINUOUS SUBCUTANEOUS INFUSION. DISCARD VIAL AFTER 40 DAYS Patient not taking: Reported on 08/07/2024 Gloria Rahman MD Active Jardiance 25 mg [id number] Take 1 tablet (25 mg) by mouth once daily. Gloria ProviderMD Active levothyroxine (Synthroid, Levoxyl) 112 mcg tablet [id number] Take 1 tablet (112 mcg) by mouth once daily. Gloria Rahman MD Active lisinopril 40 mg tablet [id number] Take 1 tablet (40 mg) by mouth once daily. Gloria Rahman MD Active metFORMIN (Glucophage) 500 mg tablet [id number] Take 1 tablet (500 mg) by mouth 2 times daily (morning and late afternoon). Historical ProviderMD Active metoprolol succinate XL (Toprol-XL) 100 mg 24 hr tablet [id number] TAKE 1 TABLET BY MOUTH DAILY for heart Historical ProviderMD Active Mucinex DM 60-1,200 mg tablet extended release 12 hr [id number] Take 1 tablet by mouth every 12 hours. Gloria Rahman MD Active oxyCODONE-acetaminophen (Percocet) 5-325 mg tablet [id number] Take 1 tablet by mouth 2 times a day as needed. Patient not taking: Reported on 08/07/2024 Gloria Rahman MD Active pantoprazole (ProtoNix) 40 mg EC tablet [id number] Take 1 tablet (40 mg) by mouth. Historical ProviderMD Active potassium citrate CR (Urocit-K-10) 10 mEq ER tablet [id number] Take 1 tablet (10 mEq) by mouth twicea day. Historical ProviderMD Active predniSONE (Deltasone) 20 mg tablet [id number] Take 0.5 tablets (10 mg) by mouth early in the morning.. Historical ProviderMD Active predniSONE (Deltasone) 20 mg tablet [id number] Take 2 tablets (40 mg) by mouth once daily. Patient not taking: Reported on 08/07/2024 Rosalino Padron MD Active predniSONE (Deltasone) 5 mg tablet [id number] Take 4 tablets (20 mg) by mouth once daily for 30 days, THEN 3 tablets (15 mg) once daily for 30 days, THEN 2 tablets (10 mg) once daily for 30 days, THEN1 tablet (5 mg) once daily for 14 days. Rosalino Padron MD Active spironolactone (Aldactone) 50 mg tablet [id number] Take 1 tablet (50 mg) by mouth once daily. Patient not taking: Reported on 08/07/2024 Gloria Rahman MD Active tamsulosin (Flomax) 0.4 mg 24 hr capsule [id number] Take 1 capsule (0.4 mg) by mouth once daily. Gloria ProviderMD Active traMADol (Ultram) 50 mg tablet [id number] Take 1 tablet (50 mg) by mouth. [...] Rosalino Padron MD 08/28/2024 documented in this [facility] Work Phone: Hospital course Narrative No data available for this section [facility] Discharge instructions No data available for this section [facility] Discharge instructions* Attachments The following attachments cannot be sent through Care Everywhere. * Arteriogram Discharge Instructions (Kyrgyz) [facility] Attachments The following attachments cannot be sent through Care Everywhere. * Risk Factors for Stroke (Kyrgyz) * Stroke (Kyrgyz) * Carotid Artery Disease (Kyrgyz) documented in this [facility]* Patient Instructions* Rosalino Padron MD [...] and walking test. For scheduling purposes: Call [phone] to schedule a breathing or a walking test Call [phone] to schedule EKG's, Echocardiograms and Cardiopulmonary Stress Tests. Call [phone] to schedule Radiology tests such as Nuclear Medicine Stress Tests, CT Scans, and MRI's. Should you have any questions Please Call our pulmonary nurse Linda Marie at [phone] or my virtual assistant for advertisers Puneet Leone at [phone] documented in this [facility] Work Phone: Reason for referral (narrative)No reason for referral information availableWAs[facility] Work Phone: Reason for visit Narrative* Imaging (Routine) - Closed Specialty Diagnoses / Procedures Referred By Contac t Referred To Contact Radiology Diagnoses Bilateral carotid artery stenosis Ischemic cerebrovascular accident (CVA) (HCC) Procedures CTA head neck angio w and wo IV contrast Oziel Culp MD [address] [place] [address] Phone: tel: fax: Referral ID Status Reason Start Date Expiration Date Visits Re quested Visits Authorized [id number] Closed 01/06/2024 01/05/2025 1 1 [facility] for visit Narrative* Imaging (Routine) - Closed Specialty Diagnoses / Procedures Referred By Contac t Referred To Contact Cardiology Diagnoses Bilateral carotid artery occlusion Procedures Vascular US carotid artery duplex bilateral Suzy Jauregui MD [address] [place] [address] Phone: tel: fax: Referral ID Status Reason Start Date Expiration Date Visits Re quested Visits Authorized [id number] Closed 10/15/2023 10/14/2024 1 [facility] (Routine) - Closed Specialty Diagnoses / Procedures Referred By Contac t Referred To Contact Radiology Diagnoses Ischemic cerebrovascular accident (CVA) (HCC) Bilateral carotid artery stenosis Procedures IR angiogram cerebral with possible intervention Mey Loya, INFECTION CONTROL MANAGER - CONCRETE INSPECTOR [address] [address] Phone: tel: fax: Referral ID Status Reason Start Date Expiration Date Visits Re quested Visits Authorized [id number] Closed 02/13/2024 02/12/2025 1 1 [facility] for visit Narrative* Imaging (Routine) - Authorized Specialty Diagnoses / Procedures Referred By Contac t Referred To Contact Radiology Diagnoses ILD (interstitial lung disease) (Multi) Procedures [place] [address] [place] [id number] Phone: tel: fax: Referral ID Status Reason Start Date Expiration Date Visits Requested Visits Authorized [id number] Authorized Perform Procedure 06/26/2024 06/26/2025 1 1 [facility] Work Phone: reason for visit Narrative* CV Imaging (Routine) - Authorized Specialty Diagnoses / Procedures Referred By Contac t Referred To Contact Cardiology Diagnoses Pulmonary hypertension (Multi) Procedures Transthoracic Echo (TTE) Complete MI ECHO TTHRC R-T 2D W/WOM-MODE COMPL SPEC&[place] [address] [place] [address] Phone: tel: fax: Referral ID Status Reason Start Date Expiration Date Visits Requested Visits Authorized [id number] Authorized Perform Procedure 06/26/2024 06/26/2025 1 1 [facility] Work Phone: reason for visit Narrative* PFT (Routine) - Pending Review Specialty Diagnoses / Procedures Referred By Contac t Referred To Contact Diagnoses ILD (interstitial lung disease) (Multi) Procedures Pulmonary Stress Test (6 Min. Walk) [place] [address] [place] [address] Phone: tel: fax: Referral ID Status Reason Start Date Expiration Date V isits Requested Visits Authorized [id number] Pending Review 06/26/2024 06/26/2025 1 1 [facility] Work Phone: reason for visit Narrative* PFT (Routine) - Pending Review Specialty Diagnoses / Procedures Referred By Contac t Referred To Contact Diagnoses ILD (interstitial lung disease) (Multi) Procedures Complete Pulmonary Function Test (Spirometry/DLCO/Lung Volumes) Rosalino Padron [place] [id number] [place] [address] Phone: tel: fax: Referral ID Status Reason Start Date Expiration Date V isits Requested Visits Authorized [id number] Pending Review 06/26/2024 06/26/2025 1 1 [facility] Work Phone: reason for visit Narrative* PFT (Routine) - Pending Review Specialty Diagnoses / Procedures Referred By Contac t Referred To Contact Diagnoses ILD (interstitial lung disease) (Multi) Procedures Spirometry Pre/Post Bronchodilator Rosalino Padron [place] [id number] [place] [address] Phone: tel: fax: Referral ID Status Reason Start Date Expiration Date V isits Requested Visits Authorized [id number] Pending Review 08/07/2024 08/07/2025 1 1 [facility] Work Phone: reason for visit Narrative* PFT (Routine) - Pending Review Specialty Diagnoses / Procedures Referred By Contac t Referred To Contact Diagnoses ILD (interstitial lung disease) (Multi) Procedures Pulmonary Stress Test (6 Min. Walk) Rosalino Padron [place] [id number] [place] [address] Phone: tel: fax: Referral ID Status Reason Start Date Expiration Date V isits Requested Visits Authorized [id number] Pending Review 08/07/2024 08/07/2025 1 1 [facility] Work Phone: reason for visit Narrative* PFT (Routine) - Pending Review Specialty Diagnoses / Procedures Referred By Contac t Referred To Contact Diagnoses ILD (interstitial lung disease) (Multi) Procedures DLCO / [place] [address] [place] [address] Phone: tel: fax: Referral ID Status Reason Start Date Expiration Date V isits Requested Visits Authorized [id number] Pending Review 08/07/2024 08/07/2025 1 1 [facility] Work Phone: reason for visit Narrative* Endoscopy (Routine) - Authorized Specialty Diagnoses / Procedures Referred By Contac t Referred To Contact Gastroenterology Diagnoses ILD (interstitial lung disease) (Multi) Procedures Bronchoscopy Tier 2; w BAL, [place] [address] [place] [address] Phone: tel: fax: Referral ID Status Reason Start Date Expiration Date V isits Requested Visits Authorized [id number] Authorized 08/11/2024 08/11/2025 1 1 [facility] Work Phone: Summary Purpose Family History Relationship [...] Documents on File Type Date Recorded 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 Advance Directive(s) 08/19/2015 12:10 PM Advance Directive(s) 09/10/2015 4:56 PM Advance Directive Response Recorded Date/ Time Name of Medical Power of Litigation Examiner Tia Leos/segundo awais June 19, 2021 11:06am Advance Directives Yes September 08 3:58am Living Will No July 16, 2021 2:23pm Power of Litigation Examiner No July 16 2:23pm Advance Directive Response Recorded Date/ Time Name of Medical Power of Litigation Examiner Tia Glasgo/w awais June 19, 2021 11:06am Advance Directives Yes September 08 3:58am Living Will Yes September 04, 2021 6 :29am Power of Litigation Examiner Yes September 04, 2021 6:29am Advance Directive Response Recorded Date/ Time Name of Medical Power of Litigation Examiner Tia Glasgo/w awais June 19, 2021 11:06am Name of Medical Power of Litigation Examiner tia glasgo September 04, 2021 6:29am Advance Directives Yes September 08 3:58am Living Will Yes September 04, 2021 6 :29am Power of Litigation Examiner Yes September 04, 2021 6:29am Advance Directive Response Recorded Date/ Time Advance Directives Yes September 08 2:58am Living Will Yes September 04, 2021 5 :29am Power of Litigation Examiner Yes September 04, 2021 5:29am Advance Directive Response Recorded Date/ Time Advance Directives on File Yes 2022 8:42am Name of Medical Power of Litigation Examiner Tia () May 09, 2022 8:42am Advance Directives Yes May 09, 2022 8:42am Living Will Yes May 09 8:42am Power of Litigation Examiner Yes May 09, 2022 8:42am Advance Directive Response Recorded Date/ Time Advance Directives on File Yes 2022 9:42am Name of Medical Power of Litigation Examiner Tia () May 09, 2022 9:42am Advance Directives Yes May 09, 2022 9:42am Living Will Yes May 09 9:42am Power of Litigation Examiner Yes May 09, 2022 9:42am Advance Directive Response Recorded Date/ Time Advance Directives on File Yes 2022 9:42am Name of Medical Power of Litigation Examiner Tia () May 09, 2022 9:42am Name of Medical Power of Litigation Examiner tia Glasgi-3 [phone] August 02, 2022 12:47am Advance Directives Yes May 09, 2022 9:42am Living Will Yes August 02, 2022 12 :47am Power of Litigation Examiner Yes August 02, 2022 12:47am Advance Directive Response Recorded Date/ Time Name of Medical Power of Litigation Examiner tia Evangelista-Carmen [phone] August 02, 2022 12:47am Advance Directives Yes May 09, 2022 9:42am Living Will Yes August 02, 2022 12 :47am Power of Litigation Examiner Yes August 02, 2022 12:47am Advance Directive Response Recorded Date/ Time Advance Directives Yes May 09, 2022 9:42am Living Will Yes August 02, 2022 12 :47am Power of Litigation Examiner Yes August 02, 2022 12:47am Advance Directive Response Recorded Date/ Time Name of Medical Power of Litigation Examiner TIA February 14, 2023 9:43am Advance Directives Yes May 09, 2022 8:42am Living Will Yes February 14 023 9:43am Power of Litigation Examiner Yes February 14, 2023 9:43am Advance Directive Response Recorded Date/ Time Name of Medical Power of Litigation Examiner TIA February 14, 2023 10:43am Advance Directives Yes May 09, 2022 9:42am Living Will Yes February 14 023 10:43am Power of Litigation Examiner Yes February 14, 2023 10:43am Advance Directive Response Recorded Date/ Time Advance Directives Yes May 09, 2022 9:42am Living Will Yes February 14 10:43am Power of Litigation Examiner Yes February 14, 2023 10:43am Documents on File Type Date Recorded 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 Yes February 14, 2023 10:43am Living Will Yes November 15 11:41am Do you have a Healthcare Power of Litigation Examiner? Yes November 16, 2023 11:41am Living Will Yes January 20 4:34am Do you have a Healthcare Power of Litigation Examiner? Yes January 21, 2024 4:34am Advance Directives Yes April 30, 2024 10:06am Living Will Yes April 12 3:26pm Do you have a Healthcare Power of Litigation Examiner? Yes April 12, 2024 3:26pm Name of Medical Power of Litigation Examiner - TIA April 12, 2024 3:26pm Living Will Yes April 24 10:37pm Do you have a Healthcare Power of Litigation Examiner? Yes April 24, 2024 10:37pm Name of Medical Power of Litigation Examiner tia April 24, 2024 10:37pm Advance Directive Response Recorded Date/ Time Living Will Yes February 14 10:43am Do you have a Healthcare Power of Litigation Examiner? Yes February 14, 2023 10:43am Living Will Yes November 15 11:41am Do you have a Healthcare Power of Litigation Examiner? Yes November 16, 2023 11:41am Living Will Yes January 20 4:34am Do you have a Healthcare Power of Litigation Examiner? Yes January 21, 2024 4:34am Advance Directives Yes April 30, 2024 10:06am Living Will Yes April 24 10:37pm Do you have a Healthcare Power of Litigation Examiner? Yes April 24, 2024 10:37pm Name of Medical Power of Litigation Examiner tia April 24, 2024 10:37pm Advance Directive Response Recorded Date/ Time Living Will Yes February 14 10:43am Do you have a Healthcare Power of Litigation Examiner? Yes February 14, 2023 10:43am Living Will Yes January 20 4:34am Do you have a Healthcare Power of Litigation Examiner? Yes January 21, 2024 4:34am Advance Directives Yes April 30, 2024 10:06am Living Will Yes April 24 10:37pm Do you have a Healthcare Power of Litigation Examiner? Yes April 24, 2024 10:37pm Name of Medical Power of Litigation Examiner tia April 24, 2024 10:37pm Advance Directive Response Recorded Date/ Time Advance Directives Yes April 30, 2024 10:06am Advance Directive Response Recorded Date/ Time Do you have a Healthcare Power of Litigation Examiner? Yes September 26, 2024 3:39pm Advance Directives Yes April 30, 2024 10:06am Chief Complaint and Reason for Visit Chief Complaint 4 M FU UNSTABLE ANGINA, SOB UNSTABLE ANGINA, SOB UNSTABLE ANGINA, SOB UNSTABLE ANGINA, SOB UNSTABLE ANGINA, SOB HYPOXIA HYPOXIA HYPOXIA 1 M FU [address] fu Shortness of breath dizziness Reason [...] SOB HYPOXIA HYPOXIA HYPOXIA 1 M [address] fu Shortness of breath dizziness KIANNA; [...] SOB HYPOXIA HYPOXIA HYPOXIA 1 M [address] fu Shortness of breath dizziness KIANNA; [...] HYPOXIA HYPOXIA HYPOXIA 1 M FU [address] fu Shortness of breath dizziness KIANNA; [...] HYPOXIA HYPOXIA 1 M FU 9 m fu/[address] [place] [address] fu Shortness of breath dizziness KIANNA; LM 08/04 & 08/07 6 wk FU CP, PROB ACS CP, PROB ACS SOB [facility]P [facility] DYSPNE[facility] Reason for Visit Diabetes Essential [...] Polyneuropathy Chief Complaint HR 130 today per [employer] E-ORDER LEFT CAROTID BRUIT 3 M [...] per JR May 21, 2024 10:41am [place] DEAL ARCHITECT TO READ May 28, 2024 7:06am 30 DAY MONITOR May 28, 2024 9:00am unable to tolerate cpap, new oxygen requ irement June 02, 2024 7:43pm B12 inject June 04, 2024 1:20 pm 8-10 WK F/U June 10, 2024 12: 44pm B12 inject July 06, 2024 1:22 pm B12 inject August 06, 2024 2:27pm EKG (DEAL ARCHITECT) August 12, 2024 11:03 am EORDERS August [...] per JR May 21, 2024 10:41am [place] DEAL ARCHITECT TO READ May 28, 2024 7:06am 30 DAY MONITOR May 28, 2024 9:00am unable to tolerate cpap, new oxygen requ irement June 02, 2024 7:43pm B12 inject June 04, 2024 1:20 pm 8-10 WK F/U June 10, 2024 12: 44pm B12 inject July 06, 2024 1:22 pm B12 inject August 06, 2024 2:27pm EKG (DEAL ARCHITECT) August 12, 2024 11:03 am EORDERS August [...] note per May 21, 2024 10:41am AL[place] DEAL ARCHITECT TO READ May 28, 2024 7:06am 30 DAY MONITOR May 28, 2024 9:00am unable to tolerate cpap, new oxygen requ irement June 02, 2024 7:43pm B12 inject June 04, 2024 1:20 pm 8-10 WK F/U June 10, 2024 12: 44pm B12 inject July 06, 2024 1:22 pm B12 inject August 06, 2024 2:27pm EKG (DEAL ARCHITECT) August 12, 2024 11:03 am EORDERS August [...] per JR May 21, 2024 10:41am [place] DEAL ARCHITECT TO READ May 28, 2024 7:06am 30 DAY MONITOR May 28, 2024 9:00am unable to tolerate cpap, new oxygen requ irement June 02, 2024 7:43pm B12 inject June 04, 2024 1:20 pm 8-10 WK F/U June 10, 2024 12: 44pm B12 inject July 06, 2024 1:22 pm B12 inject August 06, 2024 2:27pm EKG (DEAL ARCHITECT) August 12, 2024 11:03 am EORDERS August [...] per JR May 21, 2024 10:41am [place] DEAL ARCHITECT TO READ May 28, 2024 7:06am 30 DAY MONITOR May 28, 2024 9:00am unable to tolerate cpap, new oxygen requ irement June 02, 2024 7:43pm B12 inject June 04, 2024 1:20 pm 8-10 WK F/U June 10, 2024 12: 44pm B12 inject July 06, 2024 1:22 pm B12 inject August 06, 2024 2:27pm EKG (DEAL ARCHITECT) August 12, 2024 11:03 am EORDERS August [...] B12 inject August 06, 2024 2:27pm EKG (DEAL ARCHITECT) August 12, 2024 11:03 am EORDERS August [...] Culp MD [address] [place] [address] Referral ID Status Reason Start Date Expiration Date V isits Requested Visits Authorized [id number] Pending Review 01/06/2024 01/05/2025 1 1 Specialty Diagnoses / Procedures Referred By Contac t Referred To Contact Diagnoses Cerebrovascular accident (CVA), unspecified mechanism (HCC) Harmeet Stallworth MD [address] [place] [address] Referral ID Status Reason Start Date Expiration Date Visits Re quested Visits Authorized [id number] Closed 1 1 Additional Source Comments (unrecognized sect ion and content) No Status Records FoundNo Status Records FoundNo Status Records FoundNo Status Records FoundNo Status Records FoundNo Status Records FoundNo Status Records FoundNo Status Records FoundNo Status Records Found INFORMATION SOURCE (unrecogn ized section and content) DATE CREATED AUTHOR 09/08/2018 [facility] ([place]) DATE CREATED AUTHOR AUTHOR'S ORGANIZ ATION 10/18/2023 [facility]) DATE CREATED AUTHOR AUTHOR'S ORGANIZ ATION 06/13/2024 [facility] DATE CREATED AUTHOR AUTHOR'S ORGANIZ ATION 07/25/2024 [facility] DATE CREATED AUTHOR AUTHOR'S ORGANIZ ATION 07/26/2024 [facility] DATE CREATED AUTHOR AUTHOR'S ORGANIZ ATION 08/08/2024 [facility] DATE CREATED AUTHOR AUTHOR'S ORGANIZ ATION 09/18/2024 [facility] DATE CREATED AUTHOR AUTHOR'S ORGANIZ ATION 09/25/2024 [facility] DATE CREATED AUTHOR AUTHOR'S ORGANIZ ATION 09/26/2024 [facility] Source Comments (unrecognize d section and content) In the event this informatio n is protected by the Federal Confidentiality of Alcohol and Drug Abuse Patient Records regulations: The Federal rules restrict any use of the information to criminally investigate or prosecute any alcohol or drug abuse patient.[facility] Goals (unrecognized section and content) Goals [...] Provider, Referrin g Provider Active 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, TEACHER OF THE HANDICAPPED-C Attending Provider Active Team Status: Active Member [...] Provider, Other Pr ovider Active 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, TEACHER OF THE HANDICAPPED-C Attending Provider, Referring Pro vider Active Team [...] Referrin g Provider Active Fior Vallejo NP, TEACHER OF THE HANDICAPPED-C Attending Provider Active Team Status: Inactive Member [...] Lydia Segura PA, PA Active 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, TEACHER OF THE HANDICAPPED-C Attending Provider Active Team Status: Active Member [...] MD Primary Care Provider Active 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, TEACHER OF THE HANDICAPPED-C Attending Provider, Referring Pro vider Active Team Status: Inactive Member Role Status Dates Dr. Radha Khan MD Primary Care Provider, Referrin g Provider Active Dr. Ochoa Dobbs MD Attending Provider Active Cylinder Press Operator Helper Relationship Specialty Start Date End Date Radha Khan [address] [place] [address] PCP - General Family Medicine 10/03/23 Cylinder Press Operator Helper Relationship Specialty Start Date End Date Radha Khan [address] [place] [address] PCP - General Family Medicine 10/03/23 Cylinder Press Operator Helper Relationship Specialty Start Date End Date Radha Khan [address] [place] [address] PCP - General Family Medicine 10/03/23 Cylinder Press Operator Helper Relationship Specialty Start Date End Date Radha Khan [address] [place] [address] PCP - General Family Medicine 10/03/23 Cylinder Press Operator Helper Relationship Specialty Start Date End Date Radha Khan [address] [place] [address] PCP - General Family Medicine 10/03/23 Cylinder Press Operator Helper Relationship Specialty Start Date End Date Radha Khan [address] [place] [address] PCP - General Family Medicine 10/03/23 Cylinder Press Operator Helper Relationship Specialty Start Date End Date Radha Khan [address] [place] [address] PCP - General Family Medicine 10/03/23 Cylinder Press Operator Helper Relationship Specialty Start Date End Date Radha Khan [address] [place] [address] PCP - General Family Medicine 10/03/23 Suzy Jauregui MD [address] [place] [address] [phone] Consulting Physician Vascular Surgery 04/24/24 Cylinder Press Operator Helper Relationship Specialty Start Date End Date Radha Khan [address] [place] [address] PCP - General Family Medicine 10/03/23 Suzy Jauregui MD [address] [place] [address] [address] [place] [address] [phone] Consulting Physician Vascular Surgery 04/24/24 Cylinder Press Operator Helper Relationship Specialty Start Date End Date Radha Khan [address] [place] [address] PCP - General Family Medicine 10/03/23 Suzy Jauregui MD [address] [place] [address] Consulting Physician Vascular Surgery 04/24/24 Cylinder Press Operator Helper Relationship Specialty Start Date End Date Radha Khan [address] [place] [address] PCP - General Family Medicine 10/03/23 Suzy Jauregui MD [address] [facility] [address] [place] [address] Consulting Physician Vascular Surgery 04/24/24 Cylinder Press Operator Helper Relationship Specialty Start Date End Date Radha Khan MD [address] [place] [address] PCP - General Family Medicine 07/24/24 Cylinder Press Operator Helper Relationship Specialty Start Date End Date Radha Khan MD [address] [place] [address] PCP - General Family Medicine 07/24/24 Cylinder Press Operator Helper Relationship Specialty Start Date End Date Radha Khan MD [address] [place] [address] PCP - General Family Medicine 07/24/24 Team [...] Provider Active Start: April 15, 2024 Dr. Jhon Jones MD Other Provider Active Start : [...] Edmund Dey MD Other Provider Active Start: [facility] 2024 End: April 25, 2024 Dr. 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 Joe Rocha MD [address] [place] [address] [facility] [address] [place] [address] Referral ID Status Reason Start Date Expiration Date Visits Re quested Visits Authorized [id number] 1 1 Reason Comments New Patient New [...] BE BASED ON THE PRIMARY CLINICAL RECORDS. [employer] provides no warranty or guarantee of the accuracy or completeness of information in this document.
[2024-09-26] MEDS: TICAGRELOR 90 MG TABLET PO (21:30)
[2024-09-26] MEDS: Pantoprazole Sodium 40 MG Tablet PO (21:30)
[2024-09-26] MEDS: Atorvastatin Calcium 80 MG Tablet PO (21:30)
[2024-09-26] MEDS: Fenofibrate 145 MG Tablet PO (21:30)
[2024-09-26 23:50] LABS: Troponin T High Sens 4 HR 40 ng/L (<=22)
[2024-09-27] VITALS (13 sets, daily range): BP systolic 93–166; BP diastolic 60–73; PULSE 66–86; RESP 16–20; TEMP 36.6–36.9; O2SAT 92–98; BMI 47.7
[2024-09-27] MEDS: Levothyroxine 112 MCG Tablet PO (06:04)
[2024-09-27 06:22] LABS: Bedside Glucose 106 mg/dL (74-106)
[2024-09-27 06:31] LABS: Absolute Lymphocyte Count 2.19 X10^3/uL (0.83-4.51); Absolute Neutrophil Count 7.8 X10^3/uL (2.0-7.7); Basophil# 0.05 X10^3/uL; Basophil% 0.4 % (0-1); Eosinophil# 0.19 X10^3/uL; Eosinophils% 1.7 % (0-5); Hematocrit 29.3 % (40-54); Hemoglobin 8.9 g/dL (13.0-16.5); Lymphocyte # 2.19 X10^3/ul (0.83-4.51); Lymphocyte % 19.4 % (19-41); Mean Corp Hgb Conc 30.4 g/dL (32-36); Mean Corpuscular Hgb 24.2 pg (27.0-32.0); Mean Corpuscular Volume 79.6 fL (80-94); Mean Platelet Vol. 9.8 fl (6.2-12.0); Monocyte% 8.9 % (0-10); NRBC Flagged by Analyzer 0 % (0-5); Neutrophil # 7.78 X10^3/uL (2.7-7.7); Neutrophil % 68.9 % (47-70); Platelet Count 214 K/mm3 (150-450); RBC Distribution Width CV 17.8 % (11.6-14.6); RBC Distribution Width SD 51.2 fl (35.1-43.9); Red Blood Count 3.68 M/mm3 (4.6-6.2); White Blood Count 11.3 K/mm3 (4.4-11.0)
[2024-09-27 06:54] LABS: Hemoglobin A1c 8.4 % (<=5.6)
[2024-09-27 06:57] LABS: Cholesterol 148 mg/dL (<=200); High Density Lipoprotein 52 mg/dL; Low Density Lipoprotein Calc. 64 mg/dL; Triglycerides 159 mg/dL; Very Low Density Lipoprotein 32 mg/dL (5-40); cholesterol:hdl ratio screen 2.83
[2024-09-27 06:58] LABS: Anion Gap 12 (5-15); BUN 27 mg/dL (4-19); BUN/Creat Ratio 22.7 RATIO (10-20); Calcium,Total 9.2 mg/dL (7.6-11.0); Carbon Dioxide 24.8 mmol/L (21.0-32.0); Chloride 102 mmol/L (98-108); Creatinine, Serum 1.19 mg/dL (0.70-1.20); EST Glomerular Filtration Rate 69 (>60); Estimated Creatinine Clearance 93.22 ml/min (50-250); Glucose 97 mg/dL (70-99); Potassium 3.9 mmol/L (3.3-5.1); Sodium Level 138 mmol/L (133-145)
--- NOTE | 2024-09-27 07:27 | NURSING ---
0719 [facility] completed with this RN and nightshift RN.
--- NOTE | 2024-09-27 08:01 | PCM.PN.HOSP ---
Reason for Visit Reason for Visit: Diagnoses Cerebral infarction, unspecified (09/26/24) Objective Data Objective Data Vital Signs: Vital Signs Temp Pulse Resp BP Pulse Ox O2 Del Method O2 Flow Rate 97.8 F 67 18 139/64 H 95 Nasal Cannula 4 09/27/24 07:19 09/27/24 07:19 09/27/24 07:19 09/27/24 07:19 09/27/24 07:19 09/27/24 07:19 09/27/24 07:19 Oxygen Flow Rate (L/min) 4 Oxygen Delivery Method Nasal Cannula Weight: 146.7 kg Body Mass Index (BMI) 47.7 Intake & Output: Intake and Output for Last 24 Hours 09/25/24 09/26/24 09/27/24 23:59 23:59 23:59 Intake Total 600 / 600 0 / 0 Output Total 500 / 500 250 / 250 Balance 100 / 100 -250 / -250 Lab / Micro Data 09/27/24 05:52 09/27/24 05:52 Labs: Laboratory Results - last 24 hr 09/26/24 15:40: WBC 14.0 H, RBC 3.79 L, Hgb 9.1 L, Hct 30.0 L, MCV 79.2 L, MCH 24.0 L, MCHC 30.3 L, RDW Std Deviation 50.9 H, RDW Coeff of Gavi 17.9 H, Plt Count 237, MPV 10.4, Immature Gran % (Auto) 0.800, Neut % (Auto) 85.3 H, Lymph % (Auto) 4.2 L, [place] % (Auto) 8.7, Eos % (Auto) 0.6, Baso % (Auto) 0.4, Absolute Neuts (auto) 11.9 H, Absolute Lymphs (auto) 0.58 L, Nucleated RBC % 0, PT 13.1, INR 1.0, APTT 20.8 L, Sodium 138, Potassium 4.2, Chloride 100, Carbon Dioxide 22.9, Anion Gap 15, BUN 31 H, Creatinine 1.26 H, Est GFR (MDRD) Non-Af 65, BUN/Creatinine Ratio 24.6 H, Glucose 246 H, Calcium 9.0, Troponin T High Sens 47 H 09/26/24 17:54: Troponin T Hi Sens 2 Hr 42 H 09/26/24 20:00: POC Glucose 172 H 09/26/24 22:53: Troponin T Hi Sens 4Hr 40 H 09/27/24 05:52: WBC 11.3 H, RBC 3.68 L, Hgb 8.9 L, Hct 29.3 L, MCV 79.6 L, MCH 24.2 L, MCHC 30.4 L, RDW Std Deviation 51.2 H, RDW Coeff of Gavi 17.8 H, Plt Count 214, MPV 9.8, Immature Gran % (Auto) 0.700, Neut % (Auto) 68.9, Lymph % (Auto) 19.4, [place] % (Auto) 8.9, Eos % (Auto) 1.7, Baso % (Auto) 0.4, Absolute Neuts (auto) 7.8 H, Absolute Lymphs (auto) 2.19, Nucleated RBC % 0, Sodium 138, Potassium 3.9, Chloride 102, Carbon Dioxide 24.8, Anion Gap 12, BUN 27 H, Creatinine 1.19, Estim Creat Clear Calc 93.22, Est GFR (MDRD) Non-Af 69, BUN/Creatinine Ratio 22.7 H, Glucose 97, Hemoglobin A1c 8.4 H, Calcium 9.2, Triglycerides 159, Cholesterol 148, LDL Cholesterol, Calc 64, VLDL Cholesterol 32, HDL Cholesterol 52, Cholesterol/HDL Ratio 2.83 09/27/24 06:02: POC Glucose 106 Radiography Diagnostic Testing: Radiology Impression Brain CT 09/26/24 15:39 IMPRESSION: No acute intracranial finding. Chronic microvascular ischemic changes and age-related changes as described. Dr. Newberry discussed these findings via telephone with Dr. Avitia at 4:36 pm on 09/26/24. Reading Location: [id number] Head/Neck CTA 09/26/24 17:06 IMPRESSION: 1. 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 Correlation with CT perfusion or MRI recommended to evaluate for chronicity. 2. 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 3. Biapical ground-glass opacities with central tracheal secretions, most compatible with aspiration pneumonitis/pneumonia. Dr. Newberry discussed critical findings via telephone with Dr. Berrios At 6:31 pm on 09/26/24. Reading Location: [facility] Physical Exam Const alert, oriented x3 and no apparent distress; Negative for average body habitus or healthy appearing Constitutional Narrative: Morbidly obese, upper middle-aged, white male, sitting up in bed, family at bedside, appears comfortable, nontoxic HEENT head/scalp atraumatic and moist oral mucous membranes Head and Scalp: normocephalic Resp normal respiratory effort, no retractions and no use of accessory muscles Resp Narrative: Diffusely diminished, scattered crackles Auscultation: Negative for rhonchi or wheezes Cardio regular rate, regular rhythm, S1 normal heart sound, S2 normal heart sound, no murmurs, no rub, no gallops and no clicks GI normal to inspection, nondistended, normoactive bowel sounds, soft to palpation and non-tender Extremity no clubbing, cyanosis or edema Neuro oriented x3, moves all extremities and no focal motor deficits Speech: speech normal Psych affect normal Psych Narrative: Very pleasant, eye contact is good and patient interacts appropriately Assessment & Plan Assessment/Plan (1) Acute right MCA stroke: (2) Chronic respiratory failure with hypoxia: (3) Elevated troponin: PLAN: Plan Acute right MCA stroke - MRI today showed significant embolic phenomenon noted at the distal MCA territory - Neurology recommends continuing triple therapy as this was on hold for lung biopsy - Continue aspirin Brilinta and restart home Eliquis - PT/OT following--> suspect may need home health care at discharge - Continue atorvastatin - Will continue to allow for permissive hypertension and only continue antihypertensives as ordered for now - Echocardiogram is pending - Continue NIH per protocol--> has been 0 since admission - Neurology has evaluated patient appreciate input Elevated troponin - Etiology is unclear - patient without chest pain - Echocardiogram is pending History of stroke - Patient was on dual antiplatelet therapy and had a recurrent stroke so he has been on triple therapy since that point in time - Antiplatelet therapy and anticoagulation were held for lung biopsy I suspect this is the etiology of his recurrent stroke Chronic hypoxic respiratory failure - Patient is on home O2 at 4 L - Recent lung biopsy at - Continue home medications - I-S DM-2 - Patient has insulin pump and will continue to use while admitted - Continue Accu-Cheks and SSI as ordered - Patient is on steroids for his lungs - Continue Jardiance Urinary and stool incontinence - patient is not having diarrhea - No saddle anesthesia - These are not new problems - With urinary incontinence we will hold Flomax - No suspicion of infectious etiology for diarrhea so as needed Imodium might help bulk formed some Hypothyroidism - Continue home Synthroid Essential hypertension/hyperlipidemia - Patient is not on all of his home antihypertensives as we are allowing for some permissive hypertension - Will likely restart tomorrow - Continue home statin - Continue fenofibrate KIANNA - Patient has primarily been using oxygen overnight and not using BiPAP - Strongly recommend compliance however there are tolerance issues Chronic HFpEF - Restart Lasix tomorrow if stable - Continue to monitor volume status - Continue Jardiance GERD - Continue home PPI Depression - Continue home Cymbalta - continue home BuSpar Morbid obesity - BMI is 47.8 - Complicates treatment, prognosis, outcomes - Recommend weight loss DVT prophylaxis - Full anticoagulation with Eliquis CODE STATUS -Full code Charges/Coding Visit Charges Inpatient E&M: 83113 Subs Hosp L2 NIHSS NIHSS Nursing Documentation NIHSS Nursing Documentation: NIH Stroke Scale Start: 09/26/24 15:40 Freq: Status: Discharge Protocol: Activity Type Activity Date Activity User E-sign Co-sign Detail Recorded Client Recorded Date Recorded By Document 09/26/24 15:40 [id number] 09/26/24 15:41 09/26/24 15:40 NIH Stroke Scale [NIHSS] A score of 0 is normal or asymptomatic . Total possible score is 42. Inpatient: RN or Physician to activate a stroke alert for onset of new stroke symptoms or with NIHSS increase >/= 3 points. Following change in neurological status, NIHSS will be performed per physician order or more frequently PRN. -1a. Level of Consciousness 0 - Alert; keenly responsive -1b. LOC Questions 0 - Answers BOTH questions correctly -1c. LOC Commands 0 - Performs BOTH tasks correctly -2. Best Gaze 0 - Normal -3. Visual 0 - No visual loss -4. Facial Palsy 0 - Normal symmetrical movements -5a. Left Arm 1 - Drift; arm drifts downward but doesn?t hit the bed -5b. Right Arm 0 - No drift; arm holds 90 ( or 45) degrees for full 10 seconds -6a. Left Leg 1 - Drift; leg falls by the end of 5- seconds, but does not hit bed -6b. Right Leg 0 - No drift; leg holds 30- degree position for full 5 seconds -7. Limb Ataxia 0 - Absent -8. Sensory 0 - Normal; no sensory loss -10. Dysarthria 0 - Normal -11. Extinction and Inattention 0 - No abnormality -Total 2 Query Text:A score of 0 is normal or asymptomatic. Total possible score is 42 . ED: Notify Physician for NIHSS increase by > / = 3 points. Inpatient: RN or Physician to activate a stroke alert for NIHSS increase of > / = 3 points. NIHSS: Ischemic Stroke/TIA Start: 09/26/24 19:23 Text: For PCU Patients: NIH and Neuro Check every 4 Status: Active hours, PRN and with change in RN caregiver. Freq: [id number] Protocol: Activity Type Activity Date Activity User E-sign Co-sign Detail Recorded Client Recorded Date Recorded By Document 09/27/24 07:19 AM [id number] 09/27/24 07:19 AMG 09/27/24 07:19 -1a. Level of Consciousness 0 - Alert; keenly responsive -1b. LOC Questions 0 - Answers BOTH questions correctly -1c. LOC Commands 0 - Performs BOTH tasks correctly -2. Best Gaze 0 - Normal -3. Visual 0 - No visual loss -4. Facial Palsy 0 - Normal symmetrical movements -5a. Left Arm 0 - No drift; arm holds 90 ( or 45) degrees for full 10 seconds -5b. Right Arm 0 - No drift; arm holds 90 ( or 45) degrees for full 10 seconds -6a. Left Leg 0 - No drift; leg holds 30- degree position for full 5 seconds -6b. Right Leg 0 - No drift; leg holds 30- degree position for full 5 seconds -7. Limb Ataxia 0 - Absent -8. Sensory 0 - Normal; no sensory loss -9. Best Language 0 - No aphasia; normal -10. Dysarthria 0 - Normal -11. Extinction and Inattention 0 - No abnormality -Total 0 Query Text:A score of 0 is normal or asymptomatic. Total possible score is 42 . ED: Notify Physician for NIHSS increase by > / = 3 points. Inpatient: RN or Physician to activate a stroke alert for NIHSS increase of > / = 3 points. Coma Scale [Assess] -Eye Opening Spontaneous -Motor Obeys Commands -Verbal Oriented [Total] -Coma Scale Total 15
[2024-09-27] MEDS: Tamsulosin HCl 0.4 MG Capsule PO (10:43)
[2024-09-27] MEDS: busPIRone 5 MG Tablet 10 MG PO (10:43)
[2024-09-27] MEDS: TICAGRELOR 90 MG TABLET PO ×2 (10:43→21:21)
[2024-09-27] MEDS: predniSONE 5 MG Tablet 15 MG PO (10:43)
[2024-09-27] MEDS: DULoxetine Hcl 60 MG Capsule PO (10:43)
[2024-09-27] MEDS: Pantoprazole Sodium 40 MG Tablet PO ×2 (10:43→21:22)
[2024-09-27] MEDS: Aspirin 81 MG TAB.CHEW PO (10:43)
[2024-09-27] MEDS: Metoprolol(XL)Succ 50 MG Tablet PO (10:43)
--- NOTE | 2024-09-27 11:29 | CON.PCM.NE_ITS ---
Assessment and Plan: Neuro Assessment/Plan Assessment: - Likely this is a TIA in the setting of severe R-M1 stenosis and being off his meds. Plan: - Will get MRI brain to check for injury. Regardless management does not change as he is on triple therapy (Asa, brillinta and eliquis. I explained to patient this is typically not something we do, but given he has felt great on it will not touch his outpaient regimen), on statin and cv risk factor optimization. No further recs. F/u with pcp and neurologist. HPI Consult Data Date of Consult: 09/27/24 HPI Narrative HPI Narrative: KRUNAL LEOS, is a 59 M w/ BPH, KIANNA, chronic oxygen use due to suspected ILD, HTN, HLD, afib on eliquis, CHF, CKD, anemia, hodgkins lymphoma, DM, neuropathy, NIDIA, MDD, moderate BL carotid disease on brillinta and ASA per outpatient vascular surgeon no need for intervention, severe right M1 stenosis and TIAs and strokes in distribution of R-M1 territory who presents with another transient episode of left sided weakness and dysarthria. He had a lung bx on and was off his ap and ac, he restarted them saturday, and on saturday while at a [employer] had transient left sided symptoms and dysarthria that lasted 30min so came in to get checked out. Last time he had this was in 04/2024 and work up was neg and called TIA. He went to see his neurologist and vascular surgeon who switched him to [id number] and switched plavix to brillinta and he has been doing well on ASA, brillinta and eliquis. Likely this is a TIA in the setting of severe R-M1 stenosis and being off his meds. Will get MRI brain to check for injury. Regardless management does not change as he is on triple therapy ( I explained to patient this is typically not something we do, but given he has felt great on it will not touch his outpaient regimen), on statin and cv risk factor optimization. No further recs. F/u with pcp and neurologist. [facility] Medical History Hyperlipidemia Ischemic cerebrovascular accident (CVA) CHF (congestive heart failure) Chronic respiratory failure with hypoxia KIANNA (obstructive sleep apnea) Presence of insulin pump CKD (chronic kidney disease) Hypothyroidism Essential (primary) hypertension Diabetes Acute hypoxemic respiratory failure Chronic diastolic CHF (congestive heart failure) Obesity Exertional shortness of breath Iron deficiency anemia due to chronic blood loss Current use of assisted anticoagulation Morbid obesity with BMI of 45.0-49.9, adult Atherosclerotic heart disease of [place] coronary artery without angina pectoris Mini stroke (~10/01/23) Peripheral vestibulopathy Cranial nerve disorder Polyneuropathy Wears glasses Depression Anxiety Cancer Thyroid disease Insulin dependent diabetes mellitus Arthritis History of renal disease Prostate disease Gastric reflux CPAP (continuous positive airway pressure) dependence Sleep apnea Shortness of breath on exertion History of echocardiogram History of stress test History of CHF (congestive heart failure) Cardiology follow-up encounter History of atrial fibrillation Neuropathy Multiple thyroid nodules Microalbuminuria Thyroid nodule Double vision Non-proliferative diabetic retinopathy KIANNA treated with BiPAP Vertigo Congestive heart failure (CHF) Low testosterone Carotid stenosis High cholesterol Vision loss of right eye Vision loss of left eye Anemia Non-smoker Atrial fibrillation Hypertension Paroxysmal atrial fibrillation Polyneuropathy due to type 2 diabetes mellitus History of non-ST elevation myocardial infarction (NSTEMI) (03/28/20) TIA (transient ischemic attack) (2018) Hodgkin disease GERD (gastroesophageal reflux disease) BPH (benign prostatic hyperplasia) Anxiety and depression Morbid obesity with BMI of 45.0-49.9, adult Nephrolithiasis Diabetes mellitus, type II Home Medications ?Medication ?Instructions ?Recorded ?Last Taken ?Type tamsulosin 0.4 mg capsule 0.4 mg PO DAILY prostate 12/1509/26/24 History duloxetine 60 mg capsule,delayed 60 mg PO DAILY depres wanda 04/17/18 09/26/24 History release (Cymbalta) 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,audio visual technician,cont #1 ea 07/26/20 Unknown Rx (Dexcom G6 Garage Hand) atorvastatin 80 mg tablet (Lipitor) 80 mg PO QHS arsenio sterol 09/04/21 09/25/24 History 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 transmitter (Dexcom #1 ea 12/29/21 Unkno wn Rx G6 Transmitter device) infusion set for insulin pump 10/08/22 Unknown Histor y insulin pump controller 10/08/22 Unknown History 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 sensor (Dexcom G6 #1 ea 02/25/23 Unknown Rx Sensor device) insulin regular hum U-500 conc 500 75 unit (0.15 mL) c ontinuous 11/11/23 09/26/24 Rx unit/mL subcutaneous soln (Humulin subcutaneous infusi on DAILY blood R U-500 (Concentrated) Insulin) sugar #20 mL ferrous sulfate 325 mg (65 mg 325 mg PO DAILY anemia 1 05/03/23 09/26/24 History iron) tablet (Feosol) amlodipine 5 mg tablet 5 mg PO QDAY blood pressure 03/13/24 09/26/24 History aspirin 325 mg tablet 325 mg PO DAILY heart health 03/13/24 09/26/24 History metoprolol succinate 100 mg 100 mg PO DAILY heart #90 tabs 03/27/24 09/26/24 Rx tablet,extended release 24 hr lisinopril 40 mg tablet 40 mg PO DAILY blood pressur e 04/12/24 09/26/24 History levothyroxine 112 mcg tablet 112 mcg PO DAILY thyroid 04/24/24 09/26/24 History ticagrelor 90 mg tablet (Brilinta) 90 mg PO BID 09/26/24 History furosemide 40 mg tablet (Lasix) 40 mg PO BID diuretic #270 tabs 06/23/24 09/26/24 Rx pantoprazole 40 mg tablet,delayed 40 mg PO BID acid re flux #60 tabs 07/22/24 09/26/24 Rx release (Protonix) empagliflozin 25 mg tablet 25 mg PO DAILY diabetes #30 tabs 08/12/24 09/26/24 Rx (Jardiance) apixaban 5 mg tablet (Eliquis) 5 mg PO BID blood thinn er #180 tabs 08/31/24 09/26/24 Rx buspirone 10 mg tablet 10 mg PO DAILY Anxiety 09/1609/26/24 History oxycodone-acetaminophen 5 mg-325 1 tab PO TID PRN pain 09/16/24 09/25/24 History mg tablet prednisone 5 mg tablet See Rx Instructions PO .COMP SOFY 09/16/24 09/26/24 History steriod fenofibrate micronized 134 mg 134 mg PO QHS 09/26/24 0 09/25/24 History capsule Allergy/AdvReac Type Severity Reaction Status Date / Time metoclopramide HCl (From Allergy Severe Anaphylaxis Verified 09/16/24 10:05 Reglan) Family History Brother Heart disease Mother CVA (cerebral vascular accident) Hypertension Rheumatoid arthritis Father Diabetes Other Alcohol abuse ulcer disease Surgical History History of cardiac catheterization History of lymph node excision History of left heart catheterization (2009) Hx of nephrolithotomy with removal of calculi History of thoracentesis (2015) Social History household members: spouse and none Smoking Status: Never smoker Electronic Cigarette Use: not used second hand exposure: No alcohol intake: never substance use type: does not use what type of physical activity do you participate in: none Vital Signs Vital Signs Vital Signs: 09/26/24 15:29 09/26/24 15:39 09/26/24 15:41 Temperature 97.9 F Temperature Source Oral Pulse Rate 84 78 Respiratory Rate 18 25 H Respiratory Effort Respiratory Depth Respiratory Pattern Blood Pressure 133/64 H 133/64 H Blood Pressure Mean 87 87 Blood Pressure Source Blood Pressure Position Blood Pressure Location Pulse Ox 97 95 Oxygen Delivery Method Nasal Cannula Nasal Cannula Nasal Cannula Oxygen Flow Rate (L/min) 4 4 4 09/26/24 16:00 09/26/24 16:09 09/26/24 16:30 Temperature Temperature Source Pulse Rate 79 91 79 Respiratory Rate 26 H 23 H 26 H Respiratory Effort Respiratory Depth Respiratory Pattern Blood Pressure 146/64 H 134/104 H 146/73 H Blood Pressure Mean 88 114 97 Blood Pressure Source Blood Pressure Position Blood Pressure Location Pulse Ox 96 Oxygen Delivery Method Nasal Cannula Oxygen Flow Rate (L/min) 3 09/26/24 17:19 09/26/24 17:19 09/26/24 17:19 Temperature Temperature Source Pulse Rate 76 73 Respiratory Rate 26 H 19 H Respiratory Effort Respiratory Depth Respiratory Pattern Blood Pressure 126/50 H 126/50 H 126/50 H Blood Pressure Mean 72 72 72 Blood Pressure Source Blood Pressure Position Blood Pressure Location Pulse Ox 94 97 Oxygen Delivery Method Nasal Cannula Oxygen Flow Rate (L/min) 4 09/26/24 17:30 09/26/24 17:49 09/26/24 18:00 Temperature Temperature Source Pulse Rate Respiratory Rate Respiratory Effort Respiratory Depth Respiratory Pattern Blood Pressure 133/64 H Blood Pressure Mean 84 Blood Pressure Source Blood Pressure Position Blood Pressure Location Pulse Ox 96 91 Oxygen Delivery Method Oxygen Flow Rate (L/min) 09/26/24 18:10 09/26/24 19:20 09/26/24 19:30 Temperature 97.8 F 98.3 F Temperature Source Oral Pulse Rate 74 70 Respiratory Rate 26 H 18 Respiratory Effort Normal Non-Labored Respiratory Depth Normal Respiratory Pattern Normal Blood Pressure 133/64 H 156/70 H Blood Pressure Mean 87 98 Blood Pressure Source Monitor Blood Pressure Position Semi-Fowlers Blood Pressure Location Right Arm Pulse Ox 94 97 Oxygen Delivery Method Nasal Cannula Nasal Cannula Oxygen Flow Rate (L/min) 4 4 09/26/24 21:14 09/26/24 21:20 09/26/24 23:20 Temperature 97.8 F 98.3 F Temperature Source Oral Oral Pulse Rate 76 68 Respiratory Rate 18 18 Respiratory Effort Respiratory Depth Respiratory Pattern Blood Pressure 126/66 H 148/65 H Blood Pressure Mean 86 92 Blood Pressure Source Monitor Monitor Blood Pressure Position Semi-Fowlers Semi-Fowlers Blood Pressure Location Right Arm Right Arm Pulse Ox 94 93 95 Oxygen Delivery Method Nasal Cannula Nasal Cannula Nasal Cannula Oxygen Flow Rate (L/min) 4 4 4 09/27/24 01:20 09/27/24 01:30 09/27/24 03:20 Temperature 98.1 F 97.8 F Temperature Source Oral Oral Pulse Rate 70 67 Respiratory Rate 18 18 Respiratory Effort Normal Non-Labored Respiratory Depth Normal Respiratory Pattern Normal Blood Pressure 154/67 H 166/63 H Blood Pressure Mean 96 97 Blood Pressure Source Monitor Monitor Blood Pressure Position Semi-Fowlers Semi-Fowlers Blood Pressure Location Left Arm Right Arm Pulse Ox 95 96 Oxygen Delivery Method Nasal Cannula Nasal Cannula Nasal Cannula Oxygen Flow Rate (L/min) 4 4 4 09/27/24 05:20 09/27/24 07:19 09/27/24 09:15 Temperature 98.2 F 97.8 F 98.1 F Temperature Source Oral Oral Temporal Pulse Rate 66 67 72 Respiratory Rate 18 18 16 Respiratory Effort Respiratory Depth Respiratory Pattern Blood Pressure 162/63 H 139/64 H 138/65 H Blood Pressure Mean 96 89 89 Blood Pressure Source Monitor Monitor Monitor Blood Pressure Position Semi-Fowlers Semi-Fowlers Sitting Blood Pressure Location Right Arm Right Arm Right Arm Pulse Ox 96 95 92 Oxygen Delivery Method Nasal Cannula Nasal Cannula Nasal Cannula Oxygen Flow Rate (L/min) 4 4 4 09/27/24 09:15 09/27/24 10:31 09/27/24 10:43 Temperature Temperature Source Pulse Rate 76 Respiratory Rate Respiratory Effort Normal Non-Labored Respiratory Depth Normal Respiratory Pattern Normal Blood Pressure Blood Pressure Mean Blood Pressure Source Blood Pressure Position Blood Pressure Location Pulse Ox 94 Oxygen Delivery Method Nasal Cannula Nasal Cannula Oxygen Flow Rate (L/min) 4 4 09/27/24 11:00 Temperature 97.9 F Temperature Source Oral Pulse Rate 76 Respiratory Rate 20 H Respiratory Effort Respiratory Depth Respiratory Pattern Blood Pressure 127/68 H Blood Pressure Mean 87 Blood Pressure Source Monitor Blood Pressure Position Semi-Fowlers Blood Pressure Location Right Arm Pulse Ox 95 Oxygen Delivery Method Nasal Cannula Oxygen Flow Rate (L/min) 4 Weight Weight: 146.7 kg Body Mass Index (BMI) 47.7 Physical Exam Narrative - General: NAD, pleasant, cooperative, well nourished, well developed - Head/Eyes: Atraumatic, normocephalic, clear cornea, normal sclera/conjunctive - Neuro: ? Mental Status: AAOX4 & following simple commands. ? Speech: Clear and fluent with good repetition, comprehension, & naming. No aphasia or dysarthria ? CN II: Visual goldberg are full to confrontation. ? CN III, IV, : EOMI, no gaze preference, no nystagmus, no ptosis ? CN V: Facial sensation is intact to light touch throughout. ? CN VII: Face is symmetric with normal eye closure and smile. ? CN VII: Hearing is grossly normal to conversational speech. ? Motor: Able to sustain all limbs ? Sensation: Normal to light touch bilaterally. ? Coordination: Normal FTN & HTS. No abn movements seen. ? Lab / Micro Data 09/27/24 05:52 09/27/24 05:52 Labs: Laboratory Results - last 24 hr 09/26/24 15:40: WBC 14.0 H, RBC 3.79 L, Hgb 9.1 L, Hct 30.0 L, MCV 79.2 L, MCH 24.0 L, MCHC 30.3 L, RDW Std Deviation 50.9 H, RDW Coeff of Gavi 17.9 H, Plt Count 237, MPV 10.4, Immature Gran % (Auto) 0.800, Neut % (Auto) 85.3 H, Lymph % (Auto) 4.2 L, [place] % (Auto) 8.7, Eos % (Auto) 0.6, Baso % (Auto) 0.4, Absolute Neuts (auto) 11.9 H, Absolute Lymphs (auto) 0.58 L, Nucleated RBC % 0, PT 13.1, INR 1.0, APTT 20.8 L, Sodium 138, Potassium 4.2, Chloride 100, Carbon Dioxide 22.9, Anion Gap 15, BUN 31 H, Creatinine 1.26 H, Est GFR (MDRD) Non-Af 65, B UN/Creatinine Ratio 24.6 H, Glucose 246 H, Calcium 9.0, Troponin T High Sens 47 H 09/26/24 17:54: Troponin T Hi Sens 2 Hr 42 H 09/26/24 20:00: POC Glucose 172 H 09/26/24 22:53: Troponin T Hi Sens 4Hr 40 H 09/27/24 05:52: WBC 11.3 H, RBC 3.68 L, Hgb 8.9 L, Hct 29.3 L, MCV 79.6 L, MCH 24.2 L, MCHC 30.4 L, RDW Std Deviation 51.2 H, RDW Coeff of Gavi 17.8 H, Plt Count 214, MPV 9.8, Immature Gran % (Auto) 0.700, Neut % (Auto) 68.9, Lymph % (Auto) 19.4, [place] % (Auto) 8.9, Eos % (Auto) 1.7, Baso % (Auto) 0.4, Absolute Neuts (auto) 7.8 H, Absolute Lymphs (auto) 2.19, Nucleated RBC % 0, Sodium 138, Potassium 3.9, Chloride 102, Carbon Dioxide 24.8, Anion Gap 12, BUN 27 H, Creatinine 1.19, Estim Creat Clear Calc 93.22, Est GFR (MDRD) Non-Af 69, B UN/Creatinine Ratio 22.7 H, Glucose 97, Hemoglobin A1c 8.4 H, Calcium 9.2, Triglycerides 159, Cholesterol 148, LDL Cholesterol, Calc 64, VLDL Cholesterol 32, HDL Cholesterol 52, Cholesterol/HDL Ratio 2.83 09/27/24 06:02: POC Glucose 106 Imaging Radiology Impression Brain CT 09/26/24 15:39 IMPRESSION: No acute intracranial finding. Chronic microvascular ischemic changes and age- related changes as described. Dr. Newberry discussed these findings via telephone with Dr. Avitia at 4:36 pm on 09/26/24. Reading Location: [facility] Head/Neck CTA 09/26/24 17:06 IMPRESSION: 1. 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 Correlation with CT perfusion or MRI recommended to evaluate for chronicity. 2. 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 3. Biapical ground-glass opacities with central tracheal secretions, most compatible with aspiration pneumonitis/pneumonia. Dr. Newberry discussed critical findings via telephone with Dr. Berrios At 6:31 pm on 09/26/24. Reading Location: [facility] Active Medications Active Medications Active Medications: Current Medications Generic Name Dose Route Start Last Admin Trade Name Freq PRN Reason Stop Dose Admin Acetaminophen 650 mg 09/26/24 19:19 Acetaminophen 325 Mg Tablet PO Q6H PRN PRN Pain 1-10 Or Fever >100.7 Albuterol Sulfate 2.5 mg 09/26/24 19:19 Albuterol 2.5 Mg/3 Ml Vial.Neb. INHALATION Q2H PRN PRN SOB &/OR WHEEZING Aspirin 81 mg 09/27/24 08:00 09/27/24 10:43 Aspirin 81 Mg Tab.Chew PO 81 mg BREAKFAST ALTA Administration Atorvastatin Calcium 80 mg 09/26/24 22:00 09/26/24 21:30 Atorvastatin Calcium 80 Mg Tablet PO 80 mg QHS ALTA Administration Buspirone HCl 10 mg 09/27/24 10:00 09/27/24 10:43 Buspirone 5 Mg Tablet PO 10 mg DAILY ALTA Administration Duloxetine HCl 60 mg 09/27/24 10:00 09/27/24 10:43 Duloxetine Hcl 60 Mg Capsule PO 60 mg DAILY ALTA Administration Fenofibrate 145 mg 09/26/24 22:00 09/26/24 21:30 Fenofibrate 145 Mg Tablet PO 145 mg QHS ALTA Administration Ferrous Sulfate 325 mg 09/27/24 12:00 Ferrous Sulfate 325 Mg Tablet PO DAILY@1200 ALTA Glucagon 1 mg 09/26/24 19:19 Glucagon 1 Mg/Ml Syringe IM X1 PRN HYPOGLYCEMIA Protocol Hydralazine HCl 5 mg 09/26/24 19:19 Hydralazine 20 Mg/Ml Vial IV 09/27/24 19:23 Q30M PRN maintain BP parameters with HR <60 Sodium Chloride 250 mls @ 15 mls/hr 09/26/24 18:49 IV .[id number] PRN Saline Flush Sodium Chloride 250 mls @ 15 mls/hr 09/26/24 18:49 IV .[id number] PRN Additional IVPB Infusion Dextrose 250 mls @ 0 mls/hr 09/26/24 19:19 Dextrose 10%-Water IV .Q0M PRN HYPOGLYCEMIA Protocol As Directed Insulin Aspart 1 unit 09/27/24 10:00 09/27/24 10:44 Insulin Basal Pump SC Not Given UD [facility] Insulin Human Lispro 0 unit 09/26/24 22:00 09/27/24 06:03 Insulin Lispro 100 Unit/Ml Insuln.Pen SC Not Given ACHS [facility] Protocol Labetalol HCl 20 mg 09/26/24 15:39 Labetalol 20 Mg/4 Ml Vial IV 09/27/24 15:39 X1 PRN BLOOD PRESSURE Labetalol HCl 10 - 20 mg 09/26/24 19:19 Labetalol 20 Mg/4 Ml Vial IV 09/27/24 19:23 Q10M PRN PRN maintain BP parameters with HR >/=60 Levothyroxine Sodium 112 mcg 09/27/24 06:00 09/27/24 06:04 Levothyroxine 112 Mcg Tablet PO 112 mcg DAILY@0600 [facility] Administration Melatonin 10 mg 09/26/24 19:19 Melatonin 3 Mg Tablet PO QHS PRN PRN INSOMNIA Metoprolol Succinate 50 mg 09/27/24 10:00 09/27/24 10:43 Metoprolol(Xl)Succ 50 Mg Tablet PO 50 mg DAILY [facility] Administration Protocol Ondansetron HCl 4 mg 09/26/24 19:19 Ondansetron 4 Mg/2 Ml Vial IV Q8H PRN PRN NAUSEA/VOMITING Oxycodone HCl 5 mg 09/26/24 20:44 Oxycodone 5 Mg Tablet PO TID PRN PRN Pain Score 4-10 Pantoprazole Sodium 40 mg 09/26/24 22:00 09/27/24 10:43 Pantoprazole Sodium 40 Mg Tablet PO 40 mg BID ALTA Administration Prednisone 15 mg 09/27/24 08:00 09/27/24 10:43 Prednisone 5 Mg Tablet PO 10/07/24 08:01 15 mg DAILYCM ALTA Administration Prednisone 10 mg 10/08/24 08:00 Prednisone 5 Mg Tablet PO DAILYCM ALTA Senna/Docusate Sodium 2 tablet 09/26/24 19:19 Senna/Docusate Sodium 1 Tablet PO BID PRN PRN Constipation Sodium Chloride 10 - 40 ml 09/26/24 18:49 0.9% Saline Lock 10 Ml Syringe IV UD PRN SALINE FLUSH Tamsulosin HCl 0.4 mg 09/27/24 10:00 09/27/24 10:43 Tamsulosin Hcl 0.4 Mg Capsule PO 0.4 mg DAILY ALTA Administration Ticagrelor 90 mg 09/26/24 22:00 09/27/24 10:43 Ticagrelor 90 Mg Tablet PO 90 mg BID ALTA Administration NIHSS NIHSS Nursing Documentation NIHSS Nursing Documentation: NIH Stroke Scale Start: 09/26/24 15:40 Freq: Status: Discharge Protocol: Activity Type Activity Date Activity User E-sign Co-sign Detail Recorded Client Recorded Date Recorded By Document 09/26/24 15:40 [id number] 09/26/24 15:41 EM 09/26/24 15:40 NIH Stroke Scale [NIHSS] A score of 0 is normal or asymptomatic . Total possible score is 42. Inpatient: RN or Physician to activate a stroke alert for onset of new stroke symptoms or with NIHSS increase >/= 3 points. Following change in neurological status, NIHSS will be performed per physician order or more frequently PRN. -1a. Level of Consciousness 0 - Alert; keenly responsive -1b. LOC Questions 0 - Answers BOTH questions correctly -1c. LOC Commands 0 - Performs BOTH tasks correctly -2. Best Gaze 0 - Normal -3. Visual 0 - No visual loss -4. Facial Palsy 0 - Normal symmetrical movements -5a. Left Arm 1 - Drift; arm drifts downward but doesn?t hit the bed -5b. Right Arm 0 - No drift; arm holds 90 ( or 45) degrees for full 10 seconds -6a. Left Leg 1 - Drift; leg falls by the end of 5- seconds, but does not hit bed -6b. Right Leg 0 - No drift; leg holds 30- degree position for full 5 seconds -7. Limb Ataxia 0 - Absent -8. Sensory 0 - Normal; no sensory loss -10. Dysarthria 0 - Normal -11. Extinction and Inattention 0 - No abnormality -Total 2 Query Text:A score of 0 is normal or asymptomatic. Total possible score is 42 . ED: Notify Physician for NIHSS increase by > / = 3 points. Inpatient: RN or Physician to activate a stroke alert for NIHSS increase of > / = 3 points. NIHSS: Ischemic Stroke/TIA Start: 09/26/24 19:23 Text: For PCU Patients: NIH and Neuro Check every 4 Status: Active hours, PRN and with change in RN caregiver. Freq: [id number] Protocol: Activity Type Activity Date Activity User E-sign Co-sign Detail Recorded Client Recorded Date Recorded By Document 09/27/24 11:00 [id number] 09/27/24 11:03 09/27/24 11:00 -1a. Level of Consciousness 0 - Alert; keenly responsive -1b. LOC Questions 0 - Answers BOTH questions correctly -1c. LOC Commands 0 - Performs BOTH tasks correctly -2. Best Gaze 0 - Normal -3. Visual 0 - No visual loss -4. Facial Palsy 0 - Normal symmetrical movements -5a. Left Arm 0 - No drift; arm holds 90 ( or 45) degrees for full 10 seconds -5b. Right Arm 0 - No drift; arm holds 90 ( or 45) degrees for full 10 seconds -6a. Left Leg 0 - No drift; leg holds 30- degree position for full 5 seconds -6b. Right Leg 0 - No drift; leg holds 30- degree position for full 5 seconds -7. Limb Ataxia 0 - Absent -8. Sensory 0 - Normal; no sensory loss -9. Best Language 0 - No aphasia; normal -10. Dysarthria 0 - Normal -11. Extinction and Inattention 0 - No abnormality -Total 0 Query Text:A score of 0 is normal or asymptomatic. Total possible score is 42 . ED: Notify Physician for NIHSS increase by > / = 3 points. Inpatient: RN or Physician to activate a stroke alert for NIHSS increase of > / = 3 points. Coma Scale [Assess] -Eye Opening Spontaneous -Motor Obeys Commands -Verbal Oriented [Total] -Coma Scale Total 15
[2024-09-27] MEDS: Ferrous Sulfate 325 MG Tablet PO (12:33)
[2024-09-27] MEDS: Insulin Lispro 100 UNIT/ML INSULN.PEN SC ×3 (12:37→21:21)
[2024-09-27 13:25] LABS: Bedside Glucose 163 mg/dL (74-106)
--- NOTE | 2024-09-27 20:02 | MRI_ITS ---
EXAM: MRI brain without contrast CLINICAL HISTORY: CVA/M1 occlusion. Patient presented to ER with stroke-like symptoms including left-sided tingling and weakness, left-sided facial droop. COMPARISON: CTA head and neck, CT head without contrast 09/26/2024. TECHNIQUE: MRI of the brain was performed according to standard departmental protocol utilizing: Sagittal and axial T1, axial FLAIR, fat saturated fast spin echo axial T2, Susceptibility. FINDINGS: The ventricles, sulci, and cisterns are normal in size for patient age. There is no evidence of acute intracranial bleed. There is no midline shift, mass effect, or extra-axial fluid collection. There are several small, scattered areas of high intensity on DWI imaging within the right distal middle cerebral artery territory. No area of restricted diffusion are identified on DWI images. Mild scattered T2 bright signals throughout the white matter, compatible with chronic microvascular ischemic changes. Chronic lacunar type infarct within the left caudate head. The rian, pituitary, corpus callosum and cerebellum appear normal. Small retention cyst or polyp within the left maxillary sinus. Trace fluid within the left mastoid air cells. The visualized paranasal sinuses are otherwise unremarkable. The visualized orbits are unremarkable. The flow voids of the major intracranial vessels are better visualized on recent CTA. The visualized extracranial structures, within limits of technique, are not otherwise remarkable. MRI/Brain without Contrast IMPRESSION: Scattered, small acute embolic showering within the right distal MCA territory. Additional chronic findings as described. Reading Location: [id number]
[2024-09-27] MEDS: Atorvastatin Calcium 80 MG Tablet PO (21:21)
[2024-09-27] MEDS: Fenofibrate 145 MG Tablet PO (21:22)
[2024-09-27] MEDS: APIXABAN 5 MG TABLET PO (21:23)
[2024-09-27] MEDS: MELATONIN 10 MG TABLET PO (21:23)
[2024-09-27 21:43] LABS: Bedside Glucose 348 mg/dL (74-106)
[2024-09-28] VITALS (8 sets, daily range): BP systolic 137–162; BP diastolic 65–76; PULSE 70–77; RESP 16–18; TEMP 36.4–36.6; O2SAT 86–100; BMI 47.7
[2024-09-28] MEDS: Levothyroxine 112 MCG Tablet PO (06:26)
[2024-09-28] MEDS: Insulin Lispro 100 UNIT/ML INSULN.PEN SC ×2 (06:26→11:45)
[2024-09-28] MEDS: Aspirin 81 MG TAB.CHEW PO (09:10)
[2024-09-28] MEDS: predniSONE 5 MG Tablet 15 MG PO (09:10)
[2024-09-28] MEDS: APIXABAN 5 MG TABLET PO (09:11)
[2024-09-28] MEDS: busPIRone 5 MG Tablet 10 MG PO (09:11)
[2024-09-28] MEDS: TICAGRELOR 90 MG TABLET PO (09:11)
[2024-09-28] MEDS: Pantoprazole Sodium 40 MG Tablet PO (09:11)
[2024-09-28] MEDS: DULoxetine Hcl 60 MG Capsule PO (09:11)
[2024-09-28] MEDS: Metoprolol(XL)Succ 50 MG Tablet PO (09:13)
[2024-09-28] MEDS: Empagliflozin 25 MG Tablet PO (09:17)
[2024-09-28 09:33] LABS: Bedside Glucose 165 mg/dL (74-106)
--- NOTE | 2024-09-28 10:45 | CASEMGMT ---
RN CM Face to Face with patient for initial transition planning/care coordination assessment. RN CM introduced self and role at [facility]. Patient lying in bed, alert and oriented. Patient willing to participate in assessment and is able to answer all questions appropriately. Care providers, pharmacy, and demographics verified. Strata: 3 PCP: [facility] Specialists: Catarino Rodriguez, mail room clerk; Soo, grain combiner; RYAN, armored transport service manager; , Flowers Salesperson; Dilia, Vascular; Rufina mail room clerk; Dave, Neuro, [facility] Preferred Pharmacy: [facility] Insurance: MMO Prescription Benefit: yes Living Will/HPOA: yes, Michaelle Ga LNOK: Living Arrangements: Patient lives with in a single story home with 3 steps and grab bar to enter. Patient states he is independent at home. Transportation: self, DME/HHC: Patient has shower chair, raised toilet, cane, walker, grab bars, bipap, nebulizer, pulse ox, glucometer, and home oxygen through [employer] with portability. No previous HHC or SNF. Patient is active with [facility] Patient wishes to discharge home and is interested in outpatient therapy. Patient states he prefers [facility] and requests referral be sent to [facility] and to have them call patient to schedule appointment. Patient states he has no further needs or concerns at this time. CM to follow for discharge planning needs that may arise. Disposition Plan: Patient to discharge home with outpatient therapy, family support, and follow-up plans in place. Nury CHANEY, RN, CM
--- NOTE | 2024-09-28 11:44 | STROKE.PNOTE ---
Objective Data Objective Data Vital Signs: Vital Signs Temp Pulse Resp BP Pulse Ox O2 Del Method O2 Flow Rate 97.8 F 70 18 137/69 H 98 Nasal Cannula 4 09/28/24 09:27 09/28/24 09:27 09/28/24 09:27 09/28/24 09:27 09/28/24 09:27 09/28/24 09:27 09/28/24 09:27 Oxygen Flow Rate (L/min) 4 Oxygen Delivery Method Nasal Cannula Weight: 146.7 kg Body Mass Index (BMI) 47.7 Intake & Output: Intake and Output for Last 24 Hours 09/26/24 09/27/24 09/28/24 23:59 23:59 23:59 Intake Total 600 / 600 1100 / 1600 600 / 600 Output Total 500 / 500 1650 / 3450 2900 / 2900 Balance 100 / 100 -550 / -1850 -2300 / -2300 Lab / Micro Data 09/27/24 05:52 09/27/24 05:52 Labs: Laboratory Results - last 24 hr 09/27/24 12:32: POC Glucose 163 H 09/27/24 21:20: POC Glucose 348 H 09/28/24 06:25: POC Glucose 165 H Radiography Diagnostic Testing: Radiology Impression Brain MRI 09/27/24 20:02 IMPRESSION: Scattered, small acute embolic showering within the right distal MCA territory. Additional chronic findings as described. Reading Location: [facility] Physical Exam Neuro Neuro Narrative: Awake,alert, oriented X3 CN 2-12 intact Motor 5/5 Sensation: intact No ataxia Subject: Neurology Subjective KRUNAL LEOS is a 59 year old M, who we are seeing in consultation today for advice on the management of stroke and related patient care. He has a PMH of BPH, KIANNA, chronic oxygen use due to suspected ILD, HTN, HLD, afib on eliquis, CHF, CKD, anemia, hodgkins lymphoma, DM, neuropathy, NIDIA, MDD, moderate BL carotid disease on brillinta and ASA per outpatient vascular surgeon no need for intervention, severe right M1 stenosis and TIAs and strokes in distribution of R-M1 territory who presents with another transient episode of left sided weakness and dysarthria. He had a lung bx on and was off his ap and ac, he restarted them saturday, and on saturday while at a constitution party had transient left sided symptoms and dysarthria that lasted 30min so came in to get checked out. Last time he had this was in 04/2024 and work up was neg and called TIA. He went to see his neurologist and vascular surgeon who switched him to [id number] and switched plavix to brillinta and he has been doing well on ASA, brillinta and eliquis. management does not change as he is on triple therapy. he is on statin and cv risk factor optimization. No further recs. F/u with pcp and neurologist. Patient reports that his has noticed cognitive impairment. EEG Results Procedure Details EEG Procedure Details: KRUNAL LEOS is a 59 year old M with a past medical history of , who presents for evaluation of Electroencephalogram on DATE at TIME Assessment and Plan: Stroke Assessment/Plan KRUNAL LEOS is a 59 M with a history of BPH, KIANNA, chronic oxygen use due to suspected ILD, HTN, HLD, afib on eliquis, CHF, CKD, anemia, hodgkins lymphoma, DM, neuropathy, NIDIA, MDD, moderate BL carotid disease on brillinta and ASA who presents for evaluation of left sided weakness Neurological examination shows intact examination. Neuroimaging shows MRI: R MCA stroke. CTA: Progression to now complete occlusion of the M1 segment of the right MCA, with thread-like distal reconstitution, most compatible with acute/subacute occlusion. Correlation with CT perfusion or MRI recommended to evaluate for chronicity. 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 Unchanged calcific plaque of the bilateral cervical carotid arteries without hemodynamically significant stenosis by NASCET criteria. HbA1C: 8.4, LDL: 64 1. Continue ASA, Brillinta, eliquis 2. Risk factor modification 3. HLD: Statin 4. HTN: Aim normotension 5. DM2: euglycemia 6. Afib on eliquis. ECHO pending 7. PT, OT evaluation. stroke education Thanks for consult. Spent 35 min in evaluation and management NIHSS NIHSS Nursing Documentation NIHSS Nursing Documentation: NIH Stroke Scale Start: 09/26/24 15:40 Freq: Status: Discharge Protocol: Activity Type Activity Date Activity User E-sign Co-sign Detail Recorded Client Recorded Date Recorded By Document 09/26/24 15:40 [id number] 09/26/24 15:41 09/26/24 15:40 NIH Stroke Scale [NIHSS] A score of 0 is normal or asymptomatic . Total possible score is 42. Inpatient: RN or Physician to activate a stroke alert for onset of new stroke symptoms or with NIHSS increase >/= 3 points. Following change in neurological status, NIHSS will be performed per physician order or more frequently PRN. -1a. Level of Consciousness 0 - Alert; keenly responsive -1b. LOC Questions 0 - Answers BOTH questions correctly -1c. LOC Commands 0 - Performs BOTH tasks correctly -2. Best Gaze 0 - Normal -3. Visual 0 - No visual loss -4. Facial Palsy 0 - Normal symmetrical movements -5a. Left Arm 1 - Drift; arm drifts downward but doesn?t hit the bed -5b. Right Arm 0 - No drift; arm holds 90 ( or 45) degrees for full 10 seconds -6a. Left Leg 1 - Drift; leg falls by the end of 5- seconds, but does not hit bed -6b. Right Leg 0 - No drift; leg holds 30- degree position for full 5 seconds -7. Limb Ataxia 0 - Absent -8. Sensory 0 - Normal; no sensory loss -10. Dysarthria 0 - Normal -11. Extinction and Inattention 0 - No abnormality -Total 2 Query Text:A score of 0 is normal or asymptomatic. Total possible score is 42 . ED: Notify Physician for NIHSS increase by > / = 3 points. Inpatient: RN or Physician to activate a stroke alert for NIHSS increase of > / = 3 points. NIHSS: Ischemic Stroke/TIA Start: 09/26/24 19:23 Text: For PCU Patients: NIH and Neuro Check every 4 Status: Active hours, PRN and with change in RN caregiver. Freq: [id number] Protocol: Activity Type Activity Date Activity User E-sign Co-sign Detail Recorded Client Recorded Date Recorded By Document 09/28/24 09:27 MARLY [id number] 09/28/24 09:29 MARLY 09/28/24 09:27 -1a. Level of Consciousness 0 - Alert; keenly responsive -1b. LOC Questions 1 - Answers ONE question correctly -1c. LOC Commands 0 - Performs BOTH tasks correctly -2. Best Gaze 0 - Normal -3. Visual 0 - No visual loss -4. Facial Palsy 1 - Minor paralysis ( flattened nasolabial fold , asymmetry on smiling) -5a. Left Arm 0 - No drift; arm holds 90 ( or 45) degrees for full 10 seconds -5b. Right Arm 0 - No drift; arm holds 90 ( or 45) degrees for full 10 seconds -6a. Left Leg 0 - No drift; leg holds 30- degree position for full 5 seconds -6b. Right Leg 0 - No drift; leg holds 30- degree position for full 5 seconds -7. Limb Ataxia 0 - Absent -8. Sensory 0 - Normal; no sensory loss -9. Best Language 0 - No aphasia; normal -10. Dysarthria 0 - Normal -Total 2 Query Text:A score of 0 is normal or asymptomatic. Total possible score is 42 . ED: Notify Physician for NIHSS increase by > / = 3 points. Inpatient: RN or Physician to activate a stroke alert for NIHSS increase of > / = 3 points. Coma Scale [Assess] -Eye Opening Spontaneous -Motor Obeys Commands -Verbal Oriented [Total] -Coma Scale Total 15 NIHSS 1a. Level of Consciousness: 0 - Alert; keenly responsive 1b. LOC Questions: 0 - Answers BOTH questions correctly 2. Best Gaze: 0 - Normal 3. Visual: 0 - No visual loss 4. Facial Palsy: 0 - Normal symmetrical movements 5a. Left Arm: 0 - No drift; arm holds 90 (or 45) degrees for full 10 seconds 5b. Right Arm: 0 - No drift; arm holds 90 (or 45) degrees for full 10 seconds 6a. Left Le - No drift; leg holds 30-degree position for full 5 seconds 6b. Right Le - No drift; leg holds 30-degree position for full 5 seconds 7. Limb Ataxia: 0 - Absent 8. Sensory: 0 - Normal; no sensory loss 9. Best Language: 0 - No aphasia; normal 10. Dysarthria: 0 - Normal 11. Extinction and Inattention: 0 - No abnormality Total: 0
--- NOTE | 2024-09-28 12:08 | CASEMGMT ---
SW completed a PHQ9 with patient as he had a Stroke. Patient scored a 4 which indicates minimal depression. Patient did get a little teary during conversation with SW. SW provided emotional support. SW asked patient if he would like a list of counseling agencies and information about [facility] Stroke support group. Patient said he would like this information. SW provided patient with counseling resources and information on [facility] stroke support group. Betina SHIELDS
[2024-09-28 12:23] LABS: Bedside Glucose 232 mg/dL (74-106)
[2024-09-28] MEDS: Ferrous Sulfate 325 MG Tablet PO (13:07)
--- NOTE | 2024-09-28 14:42 | PCM.DC.SUM ---
Providers Date of Admission: 09/26/24 Date of Discharge: 09/28/24 Primary Care Physician: Brandt Winter MD Consultations 09/26/24 19:23 Consult: Tele-Neurology Routine Consulting Provider: [facility] Reason for Consult: Acute Ischemic Stroke/TIA EMERGENT Consult: No MD Notified: Yes Date Notified: 09/26/24 Time Notified: 19:23 Method of Notification: Verbal Comments:: Called stroke line and connected via phone w/ Dr. Lyons Nursing Unit Staff Notify [facility] of Tele-Neurology Consult: Yes Reason For Visit: ACUTE CVA, [place] OCCLUSION Diagnosis Discharge Diagnosis (1) Acute right MCA stroke: Status: Acute Code(s): I63.511 - Cerebral infarction due to unspecified occlusion or stenosis of right middle cerebral artery (2) Chronic respiratory failure with hypoxia: Status: Chronic Code(s): J96.11 - Chronic respiratory failure with hypoxia (3) Elevated troponin: Status: Acute Code(s): R79.89 - Other specified abnormal findings of blood chemistry Medications at Discharge Home Medications tamsulosin 0.4 mg capsule 0.4 mg PO DAILY prostate 09/08/15 Held on 09/28/24. Instructions: Until instructed to restart duloxetine 60 mg capsule,delayed release (Cymbalta) 60 mg PO DAILY depression 04/17/18 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,proposal lead writer,cont (Dexcom G6 Upsetting Machine Operator) #1 ea 07/26/20 atorvastatin 80 mg tablet (Lipitor) 80 mg PO QHS cholesterol 09/04/21 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 transmitter (Dexcom G6 Transmitter device) #1 ea 12/29/21 infusion set for insulin pump 10/08/22 insulin pump controller 10/08/22 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 sensor (Dexcom G6 Sensor device) #1 ea 02/25/23 insulin regular hum U-500 conc 500 unit/mL subcutaneous soln (Humulin R U-500 (Concentrated) Insulin) 75 unit (0.15 mL) continuous subcutaneous infusion DAILY blood sugar #20 mL 11/11/23 ferrous sulfate 325 mg (65 mg iron) tablet (Feosol) 325 mg PO DAILY anemia 03/02/24 amlodipine 5 mg tablet 5 mg PO QDAY blood pressure 03/13/24 aspirin 325 mg tablet 325 mg PO DAILY heart health 03/13/24 metoprolol succinate 100 mg tablet,extended release 24 hr 100 mg PO DAILY heart #90 tabs 03/27/24 lisinopril 40 mg tablet 40 mg PO DAILY blood pressure 04/12/24 levothyroxine 112 mcg tablet 112 mcg PO DAILY thyroid 04/24/24 ticagrelor 90 mg tablet (Brilinta) 90 mg PO BID 05/21/24 furosemide 40 mg tablet (Lasix) 40 mg PO BID diuretic #270 tabs 06/23/24 pantoprazole 40 mg tablet,delayed release (Protonix) 40 mg PO BID acid reflux #60 tabs 07/22/24 empagliflozin 25 mg tablet (Jardiance) 25 mg PO DAILY diabetes #30 tabs 08/12/24 apixaban 5 mg tablet (Eliquis) 5 mg PO BID blood thinner #180 tabs 08/31/24 buspirone 10 mg tablet 10 mg PO DAILY Anxiety 09/16/24 oxycodone-acetaminophen 5 mg-325 mg tablet 1 tab PO TID PRN pain 09/16/24 prednisone 5 mg tablet See Rx Instructions PO .COMPLEX steriod 09/16/24 fenofibrate micronized 134 mg capsule 134 mg PO QHS 09/26/24 Hospital Course Procedures 2-D Echocardiogram, EKG and - (CT brain/CTA head neck/MRI brain) Summary of Care Provided Minutes Spent on Discharge: 38 Hospital Course: Mr. Grant is a 59-year-old medically complicated white male who presented to the emergency department [facility] [place] on 09/26/2024 with a chief complaint of left-sided numbness and weakness and generalized debility. Patient has a known history of stroke and chronic hypoxic respiratory failure on 4 L of oxygen at rest and 8 L with exertion, diabetes, hypertension, untreated KIANNA and hyperlipidemia and developed acute onset facial droop, left-sided paresthesias and weakness on the afternoon of admission. Patient typically is on aspirin, Brilinta, and Eliquis due to previous stroke however he had stopped all of these for a lung biopsy to determine the cause of his chronic hypoxic respiratory failure and suspected interstitial lung disease. His first dose after his biopsy was the evening prior to presentation. Vital signs in the emergency department showed a temperature of 97.9, heart rate 84, respiratory rate is 18, blood pressure was 133/64 and patient's oxygen saturation is 97% on 4 L nasal cannula which is his baseline. He had a mild leukocytosis with white count of 14.0 and a chronic anemia that was stable at 9.1. Chemistry showed mildly elevated BUN/creatinine at 31 and 1.26 with a blood sugar of 246. Patient has an insulin pump at baseline and follows with endocrinology. Coags were normal. Hemoglobin A1c was 8.4. He has been on prednisone for his lungs which has messed with his glycemic control as of late. He is also had some urinary and bowel incontinence which is not a new thing. He has no saddle anesthesia or significant back/lower extremity weakness or paresthesias. He is on Flomax so I did discuss with him discontinuing this to see if it helps with his urinary continence. With regards to his bowel incontinence he states that the stools are quite loose. There is no concern for infectious etiology so we did advise that he can take as needed Imodium to see if bulk forming his stool a little bit would help him control. If it is persistent, I did recommend outpatient follow-up with GI. Lipid panel was obtained and showed a total cholesterol of 140 with an LDL of 64 and an HDL of 52 with triglycerides at 159. CT on presentation showed no acute finding with chronic microvascular ischemic changes noted. CTA of his head and neck showed progression to complete occlusion of the M1 segment of the right MCA with threadlike distal reconstitution most compatible with acute or subacute occlusion unchanged occlusion of the V1 and V3 vertebral artery segments with retrograde filling of the left V4 segment and biapical groundglass opacities with central tracheal secretions compatible with pneumonitis. The patient was admitted after the case was discussed with neurology at [facility]. They indicated to reinstitute his triple therapy with Brilinta, aspirin, and Eliquis and that there was no acute intervention needed for his M1 occlusion. Fortunately, his NIH was 0 and remained 0. He had some generalized weakness and debility for which she will continue with outpatient therapy. MRI was performed and did confirm stroke noting scattered small acute embolic showering within the distal right MCA territory. Neurology evaluated the patient and stated that he needed to continue high intensity dose statin which she was already taking, and restart and keep on his aspirin, Brilinta, and Eliquis. Echocardiogram was obtained and demonstrated normal EF with previous negative bubble study and no significant change from previous echocardiogram. Patient already established with neurology so he recommended outpatient follow-up with Dr. Osman after discharge. He should follow-up with his primary care physician within 1 week. Ongoing follow-up at for pulmonary medicine should be pursued as well. Patient was discharged home with outpatient therapy prescription in stable condition on 09/28/2024. Discharge diagnoses: Acute right MCA stroke Elevated troponin secondary to subendocardial ischemia due to demand History of stroke Chronic hypoxic respiratory failure DM-2 Urinary incontinence Bowel incontinence Hypothyroidism Essential hypertension Hyperlipidemia KIANNA-noncompliant Chronic HFpEF GERD Depression Morbid obesity Physical Exam Const alert, oriented x3, no apparent distress, no limitations and well nourished; Negative for average body habitus or healthy appearing Constitutional Narrative: Morbidly obese, upper middle-aged, white male, sitting up in bed getting his echocardiogram, appears comfortable, nontoxic General Appearance: cooperative, comfortable, well kempt and well developed Exam Limitations: no limitations Nutritional Appearance: morbidly obese HEENT normocephalic, head/scalp atraumatic and moist oral mucous membranes HEENT Narrative: mallampati 3 Eyes conjunctivae normal Eyes Narrative: no scleral icterus Neck supple Neck Narrative: short and thick neck Resp normal respiratory effort, no retractions and no use of accessory muscles Resp Narrative: Diffusely diminished, scattered crackles Auscultation: Negative for rhonchi or wheezes Cardio regular rate, regular rhythm, S1 normal heart sound, S2 normal heart sound, no murmurs, no rub, no gallops and no clicks GI normal to inspection, nondistended, normoactive bowel sounds, soft to palpation and non-tender GI Narrative: Protuberant abdomen Extremity no clubbing, cyanosis or edema Skin skin turgor normal and no jaundice Neuro oriented x3, moves all extremities and no focal motor deficits Neuro Narrative: Generalized weakness especially proximal greater than distal but no focal deficits noted Speech: speech normal Psych affect normal Psych Narrative: Very pleasant, eye contact is good and patient interacts appropriately Weight / BMI Weight Weight: 146.7 kg Body Mass Index (BMI) 47.7 ABG / Lab / Microbiology Data 09/27/24 05:52 09/27/24 05:52 Laboratory: Laboratory Results - last 24 hr 09/27/24 21:20: POC Glucose 348 H 09/28/24 06:25: POC Glucose 165 H 09/28/24 11:45: POC Glucose 232 H Radiography Diagnostic Testing: Radiology Impression Echocardiogram 09/26/24 20:03 Interpretation Summary The estimated ejection fraction is 60-65 %. Normal LV systolic function No significant valve abnormality No pericardial effusion. Previous bubble study was performed which showed no intracardiac shunt. No significant change from previous echocardiogram Ordering Physician: Xiao Berrios Referring Physician: Angel Avitia Performed By: Trinidad Johnson RDCS D/C Instructions Discharge Diet: Low fat / Low cholesterol and 1800 Calorie Control Diet Discharge Activity: Return to Normal Activity DC O2, CPAP, BIPAP Needs Home O2 Discharge instructions: Yes Type of respiratory needs?: Oxygen Oxygen frequency: At rest and With Ambulation (8) Oxygen liters per minute during Ambulation: 8 DC home with Oxygen: Yes Home O2 MD Review: I have reviewed the oxygen testing, and the patient qualifies for home oxygen equipment and portability. The patient is mobile in the home and the community. Meaningful Use Info Meaningful Use Meaningful Use Diagnoses (Choose all that apply): Ischemic CVA CVA Therapy Assessed for PT,OT and/or ST?: Yes Ischemic Stroke Antithrombotic order at d/c?: Yes Dx of Atrial fib/flutter?: No Anticoagulant at discharge?: Yes Statin Dosing Therapy Reference: STATIN DOSE THERAPY REFERENCE: * Patients > 75 years receive moderate or high dose statin therapy. * Patients 75 years or YOUNGER should receive HIGH intensity statin dose unless contraindicated. You will be required to document reason for non-treatment if statin daily dose does not meet guidelines. HIGH DOSE STATIN THERAPY DAILY Atorvastatin > than or = to 40 mg Rosuvastatin > than or = to 20 mg Amlodipine + Atorvastatin > than or = to 2.5/40 mg Ezetimibe + Simvastatin 10/80 mg Simvastatin 80mg Statins at discharge?: Yes If patient is 75 or younger, pt will be discharged on HIGH intensity statin.: Yes Primary Dx Acute Ischemic CVA?: Yes IV thrombolytic ordered during stay?: No Reason IV thrombolytic not ordered: Treatment not Indicated Discharge Plan Admission Admit Date/Time: 09/26/24 20:20 Primary Reason for Your Visit: Left-sided numbness and weakness Attending Provider: Karina Benítez Primary Care Provider: Brandt Winter Consulting Providers: Edmund Dey; Kristin Boyd; Amy Dumont; Bethany Velasco; Lucy Granado; Giancarlo Lomeli; Patrizia Burk; Alden Lazaro; Cristino Flores; Fred Talbert; Jennifer Toledo; Joao Arredondo; Palak Garvin; Michelle Lyons; Indigo Coates; Lavelle Chakraborty; Rogers Heart; Abrahan Bejarano; Mindy Benítez; Ryan Riley; Xiao Berrios Instructions Additional Instructions / Restrictions: 1. Hold Flomax as discussed due to urinary incontinence 2. Okay to utilize Imodium as needed for your bowel incontinence 3. If your blood sugars remain elevated despite weaning your steroids please contact your primary winter intern 4. Would have extensive conversation in the future before holding aspirin, Brilinta, and Eliquis 5. Please follow-up with your neurologist as previously recommended Discharge Orders/Prescriptions Prescriptions: Continued (DME) Dexcom G6 Upsetting Machine Operator Misc See Rx Instructions .ROUTE .MEDSUPPLY Qty: 1 0RF Rx Instructions: As directed (DME) infusion set for insulin pump Infusion Set See Rx Instructions .Route Rx Instructions: As directed (DME) insulin pump controller Misc See Rx Instructions .Route Rx Instructions: As directed aspirin 325 mg tablet 325 mg PO DAILY Patient Comments: coated amlodipine 5 mg tablet 5 mg PO QDAY prednisone 5 mg tablet See Rx Instructions PO .COMPLEX Rx Instructions: patient currently taking 15mg daily. tapers down to 10mg daily starting 10/07/24 oxycodone-acetaminophen 5-325 mg tablet 1 tab PO TID PRN (Reason: pain) Brilinta 90 mg tablet 90 mg PO BID duloxetine [Cymbalta] 60 MG capsule,delayed release(DR/EC) 60 mg PO DAILY buspirone 10 mg tablet 10 mg PO DAILY atorvastatin [Lipitor] 80 MG tablet 80 mg PO QHS Rx Instructions: cholesterol fenofibrate micronized 134 mg capsule 134 mg PO QHS ferrous sulfate [Feosol] 325 mg (65 mg iron) tablet 325 mg PO DAILY lisinopril 40 mg tablet 40 mg PO DAILY levothyroxine 112 mcg tablet 112 mcg PO DAILY (DME) Dexcom G6 Transmitter Device See Rx Instructions .ROUTE .MEDSUPPLY Qty: 1 3RF Rx Instructions: As directed (DME) Dexcom G6 Sensor Device See Rx Instructions .ROUTE .MEDSUPPLY Qty: 1 6RF Rx Instructions: As directed Humulin R U-500 (Conc) Insulin 500 unit/mL solution 75 unit continuous subcutaneous infusion DAILY Qty: 20 5RF Patient Comments: INSULIN PUMP; pt. states that he does bolus with meals based on pump's suggested dose; unsure of basal rate; pump is currently broken, to bring in new wiring in AM metoprolol succinate 100 mg tablet extended release 24 hr 100 mg PO DAILY Qty: 90 3RF furosemide [Lasix] 40 mg tablet 40 mg PO BID Qty: 270 3RF Rx Instructions: Take extra 40 mg dose at 5 PM for increased leg swelling or weight gain 5 pounds in 1 week. pantoprazole [Protonix] 40 mg tablet,delayed release (DR/EC) 40 mg PO BID Qty: 60 3RF Jardiance 25 mg tablet 25 mg PO DAILY Qty: 30 5RF Eliquis 5 mg tablet 5 mg PO BID Qty: 180 3RF Held tamsulosin 0.4 MG capsule 0.4 mg PO DAILY Hold Instructions: Until instructed to restart Referrals / Follow Up: Brandt Winter MD [Primary Care Provider] - In 1 Week Toni Vann MD [Non-Staff -Ordering Privileges] - Within 1 Week Disposition Disposition (needs filled in before D/C Order can be placed): Home, Self Care Charges/Coding Visit Charges Inpatient E&M: 55348 Disch Hosp >30min
--- NOTE | 2024-09-28 14:55 | CHAPLAIN ---
Type of Pastoral Visit _x__ Initial Visit ___ Follow-up Visit ___ On-call Visit ___ General Patient Visit ___ Spiritual Assessment ___ Family Conference ___ Bereavement ___ Rapid Response ___ Code Blue ___ Other (describe below) Pastoral Care Referral From _x__ Patient ___ Family ___ Nurse ___ Physician ___ Accounting Instructor ___ Cheese Cutter ___ Other (describe below) Sacrament/Intervention _x__ Active listening ___ Anointing ___ Scientology ___ Bereavement ___ Communion _x__ Mary exploration ___ _x__ Life review _x__ Prayer ___ Reconciliation ___ Sacrament of Sick _x__ Supportive presence ___ Wedding ___ Other (describe below) Pastoral Comments I have seen this patient is previous admissions and he gives update on his health and needs; pt has been able to go on vacation with family since last seen; pt is asked about his coping and his feelings; pt acknowledges that he is still strong in the mary but has thus far; pt admits concerns about finding out test results and for his who is handling things as best that she could; prayer welcomed
--- NOTE | 2024-09-28 15:49 | PHA.DC_ITS ---
Pharmacy [place] Med Reconciliation Pharmacy Service has performed discharge medication reconciliation for this patient. The patient's discharge medication list was reviewed for discrepancies and discrepancies were resolved. Medications at Discharge Home Medications tamsulosin 0.4 mg capsule 0.4 mg PO DAILY prostate 09/08/15 Held on 09/28/24. Instructions: Until instructed to restart duloxetine 60 mg capsule,delayed release (Cymbalta) 60 mg PO DAILY depression 04/17/18 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,operations and maintenance technican,cont (Dexcom G6 Schedule Clerk) #1 ea 07/26/20 atorvastatin 80 mg tablet (Lipitor) 80 mg PO QHS cholesterol 09/04/21 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 transmitter (Dexcom G6 Transmitter device) #1 ea 12/29/21 infusion set for insulin pump 10/08/22 insulin pump controller 10/08/22 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 sensor (Dexcom G6 Sensor device) #1 ea 02/25/23 insulin regular hum U-500 conc 500 unit/mL subcutaneous soln (Humulin R U-500 (Concentrated) Insulin) 75 unit (0.15 mL) continuous subcutaneous infusion DAILY blood sugar #20 mL 11/11/23 ferrous sulfate 325 mg (65 mg iron) tablet (Feosol) 325 mg PO DAILY anemia 03/02/24 amlodipine 5 mg tablet 5 mg PO QDAY blood pressure 03/13/24 aspirin 325 mg tablet 325 mg PO DAILY heart health 03/13/24 metoprolol succinate 100 mg tablet,extended release 24 hr 100 mg PO DAILY heart #90 tabs 03/27/24 lisinopril 40 mg tablet 40 mg PO DAILY blood pressure 04/12/24 levothyroxine 112 mcg tablet 112 mcg PO DAILY thyroid 04/24/24 ticagrelor 90 mg tablet (Brilinta) 90 mg PO BID 05/21/24 furosemide 40 mg tablet (Lasix) 40 mg PO BID diuretic #270 tabs 06/23/24 pantoprazole 40 mg tablet,delayed release (Protonix) 40 mg PO BID acid reflux #60 tabs 07/22/24 empagliflozin 25 mg tablet (Jardiance) 25 mg PO DAILY diabetes #30 tabs 08/12/24 apixaban 5 mg tablet (Eliquis) 5 mg PO BID blood thinner #180 tabs 08/31/24 buspirone 10 mg tablet 10 mg PO DAILY Anxiety 09/16/24 oxycodone-acetaminophen 5 mg-325 mg tablet 1 tab PO TID PRN pain 09/16/24 prednisone 5 mg tablet See Rx Instructions PO .COMPLEX steriod 09/16/24 fenofibrate micronized 134 mg capsule 134 mg PO QHS 09/26/24
--- NOTE | 2024-09-28 15:55 | CASEMGMT ---
Patient has order for discharge. CAMILA LUCERO received script for outpatient therapy and sent to [facility] with request to call patient to schedule appt. CAMILA LUCERO updated discharge plan.
[2024-09-28 18:09] LABS: Bedside Glucose 361 mg/dL (74-106)
[2024-09-28 18:09] LABS: Bedside Glucose 363 mg/dL (74-106)
== END 2024-09-28 17:15 | disposition home or self-care (01) | DRG 65 ==
LOC: ED 17:05 → PCU 18:59
PROVIDERS: Admitting Provider Internal Medicine; Emergency Provider Emergency Medicine; PCP Family Medicine; Referring Provider Emergency Medicine; Visit Provider Internal Medicine
DX: I63.511 Cerebral infarction due to unspecified occlusion or stenosis of right middle cerebral artery (principal); J96.11 Chronic respiratory failure with hypoxia; G81.94 Hemiplegia, unspecified affecting left nondominant side; I24.89 Other forms of acute ischemic heart disease; Z68.42 Body mass index [BMI] 45.0-49.9, adult; I50.32 Chronic diastolic (congestive) heart failure; J84.9 Interstitial pulmonary disease, unspecified; N13.8 Other obstructive and reflux uropathy; E11.42 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 with diabetic polyneuropathy; D64.9 Anemia, unspecified; I11.0 Hypertensive heart disease with heart failure; E03.9 Hypothyroidism, unspecified; F32.9 Major depressive disorder, single episode, unspecified; I48.0 Paroxysmal atrial fibrillation; E66.01 Morbid (severe) obesity due to excess calories; G47.33 Obstructive sleep apnea (adult) (pediatric); Z79.4 Long term (current) use of insulin; I25.10 Atherosclerotic heart disease of native coronary artery without angina pectoris; K21.9 Gastro-esophageal reflux disease without esophagitis; E78.00 Pure hypercholesterolemia, unspecified; I25.2 Old myocardial infarction; E11.65 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 mellitus with hyperglycemia; R15.9 Full incontinence of feces; F41.1 Generalized anxiety disorder; R29.702 NIHSS score 2; R29.810 Facial weakness; R47.1 Dysarthria and anarthria; Z96.41 Presence of insulin pump (external) (internal); N40.1 Benign prostatic hyperplasia with lower urinary tract symptoms; R32 Unspecified urinary incontinence; Z79.82 Long term (current) use of aspirin; Z79.890 Hormone replacement therapy; Z85.71 Personal history of Hodgkin lymphoma; Z79.01 Long term (current) use of anticoagulants; Z99.81 Dependence on supplemental oxygen; Z91.199 Patient's noncompliance with other medical treatment and regimen due to unspecified reason; Z79.899 Other long term (current) drug therapy; Z79.52 Long term (current) use of systemic steroids
CPT/HCPCS: 36415; 70450; 70496; 70498; 70551; 80048; 80061; 82962; 83036; 84484; 85025; 85610; 85730; 93005; 93306; 94762; 97162; 97166; 97535; 97802; 99285; Q9957; Q9967; A4216; C8929

== ENCOUNTER → 2024-10-13 | Outpatient (CLI) | payer OTHER, SELFPAY ==
[2024-10-13 17:50] LABS: Hematocrit 33.4 % (40-54); Hemoglobin 10.2 g/dL (13.0-16.5); Immature Granulocytes Count 0.130 X10^3/uL (0.0-0.0); Mean Corp Hgb Conc 30.5 g/dL (32-36); Mean Corpuscular Volume 78.8 fL (80-94); Mean Platelet Vol. 9.8 fl (6.2-12.0); NRBC Flagged by Analyzer 0 % (0-5); Platelet Count 296 K/mm3 (150-450); RBC Distribution Width CV 17.4 % (11.6-14.6); RBC Distribution Width SD 50.3 fl (35.1-43.9); Red Blood Count 4.24 M/mm3 (4.6-6.2); White Blood Count 13.4 K/mm3 (4.4-11.0)
[2024-10-13 18:31] LABS: Cholesterol 163 mg/dL (<=200); Low Density Lipoprotein Calc. 75 mg/dL; Triglycerides 193 mg/dL; Very Low Density Lipoprotein 39 mg/dL (5-40); cholesterol:hdl ratio screen 3.31
[2024-10-13 19:13] LABS: AST(SGOT) 19 U/L (<=37); Alanine Aminotransfer ALT/SGPT 17 U/L (<=46); Albumin, Serum 3.9 g/dL (3.4-4.8); Alkaline Phosphatase 57 U/L (40-129); Anion Gap 19 (5-15); BUN 48 mg/dL (4-19); BUN/Creat Ratio 25.1 RATIO (10-20); Bilirubin, Direct 0.16 mg/dL (0.00-0.30); Calcium,Total 9.2 mg/dL (7.6-11.0); Carbon Dioxide 19.1 mmol/L (21.0-32.0); Chloride 95 mmol/L (98-108); Globulin 3.7 g/dL (2.2-4.2); Glucose 490 mg/dL (70-99); Potassium 4.0 mmol/L (3.3-5.1)
== END | disposition home or self-care (01) ==
LOC: MTLAB 16:49
PROVIDERS: Psychiatry & Neurology Neurology; PCP Family Medicine; Referring Provider Family Medicine; Visit Provider Family Medicine
DX: E03.9 Hypothyroidism, unspecified (principal); E78.5 Hyperlipidemia, unspecified
CPT/HCPCS: 36415; 80048; 80061; 80076; 84439; 84443; 85025

== ENCOUNTER 2024-11-19 14:00 | Outpatient (RCR) | payer OTHER, SELFPAY ==
--- NOTE | 2024-10-05 11:28 | HP.PTEVAL_ITS ---
Patient's Visit Information Visit Information Visit Information: KRUNAL LEOS is a 59 year old M referred to Physical Therapy by Dr. Karina Benítez DO with a diagnosis of CVA. Date of Evaluation: 10/05/24 Physical Therapist: Fox Jaime, PT, ATC Visit Plan Frequency: 2-3x /Week Duration: 4-6 Weeks Plan: L LE strengthening, balance and proprio, gait training, nustep, and HEP Subjective Subjective: CVA 09/28/24. Pt reports he has had several TIA's in the past. Pt notes he has a blockage in his brain that doctors are unable to get to. Pt repor ts he is on several blood thinners to help combat this situation. Pt reports this stroke is the worst. Pt notes he has a lot of weakness and fatigue since this accident. Pt also notes he is having difficulty with swallowing his pills and with his memory. Pt notes he is affected mostly on his L side of the body. Pt is on 4 liters of oxygen at rest, and 8 when he is active. Pt notes he is able to perform all of his ADL's and IADL's at this time, but just has to perform them more slowly. Pt reports he has stairs at home, but has no need to negotiate them on a daily basis. Pt reports his goal is to gain strength on the L side of his body to aid with IADL's. Pt reports he does have some LBP secondary to OA. Pain LBP: Pain Intensity (Out of 10): 0 Pain Intensity Range: 8 Objective Objective: Neuro: B LE sensation is WNL to light touch. TU sec ROM: Equal and WFL when compared bilaterally. MMT: L knee flex and extension are rated at 4/5. All other B LE MMT is 5/5 throughout. Gait: Pt is able to ambulate from the waiting room to the eval room [id number] 140 feet until needing to rest secondary to SOB Balance/Special Test Scores Lower Extremity Functional Score: 15 Goals Goal 1:: Pt will be able to perform all ADL's and IADL's at his premorbid level Goal Time Frame: 4-6 Weeks Goal 2:: Increase L knee strength x 1 grade to aid with ambulation Goal Time Frame: 4-6 Weeks Goal 3:: I with HEP Goal Time Frame: 4-6 Weeks Goal 4:: Pt will be able to ambulate greater than 200 feet until needing to rest to aid with community mobility Goal Time Frame: 4-6 Weeks Rehabilitation Potential Physical Therapy Diagnosis: Pt has L LE weakness and difficulty with gait secondary to debility from a CVA Rehabilitation Potential: Good Anticipated Interventions Patient/Client Instruction: Educate patient on: Condition and Plan of Care For the Purpose of:: To improve self management Therapeutic Exercise to Include: Strength training, Endurance training, Balance training, Gait and locomotor training and Dynamic Lumbar Stabilization For the Purpose of:: To increase oxygenation perfusion, To improve muscle performance and motor function and To increase tolerance to activity/condition/position Text: Thank you for the opportunity to evaluate your patient. For Medicare and Medicare HMO plans, please review the plan of care and approve it. It will need to be FAXED BACK to us at [phone] for Medicare purposes. For Medicare only, by signing this I certify the plan of care. Please let me know if there are questions or concerns regarding this plan of care. Physician Signature: Date:
--- NOTE | 2024-10-14 16:28 | HP.OTEVAL ---
Patient's Visit Information Visit Information Visit Information: KRUNAL LEOS is a 59 year old M, referred to Occupational Therapy by Dr. Karina Benítez DO, with a diagnosis of TIA. Date of Evaluation: 10/13/24 Occupational Therapist: [facility], CHT Subjective Subjective: This 59 year old male was seen for OT eval with dx of Stroke. September 28 2024 stroke. pt states since last September he has had a number of TIAs. and has been on three different blood thinners and due to breathing issues he had to go off his blood thinner for the lung biopsy and a day later he had is stroke (September 28 2024) Pt states Neurologist told him 7 mini strokes (TIAs at one time) pt is right handed pt states he has trouble with holding on to items. pt states even prior to his TIA he was struggling with holing onto paper/coat and have some shaking but denies numb/tingling Pt retired from [employer] after 39 years. pt is with him today. states he has not done much since he retired but go to Dr. schulte. will see Nuro again in 2024. pt states he feels his left hand is weak and difficulty hanging on to items. pt states he just feels he needs to get stronger to participate with ADLs ADLs Comments: pt states he was placed on Oxygen back in 2024 at rest 4 liters of O2 and when active 8 liters. this make doing activity more difficulty- pt did like to sugey in his garage but with his O2 tank. pt states he can fold laundry but everyone beats him to it. state he can make light meal as needed. pt will ride in cart at store but mostly will do grocery pick-up pt has walk in shower with shower chair with grab bars. pt does have walkers, rollator and a scooter for getting to and from Dr. schulte. ROM Shoulder: right/left WNL Elbow: right/left WNL Strength Shoulder: flexion right 13# left 13# Elbow: triceps right 20# left 25# Biceps R 28# left 27# Outside Sales Consultant: right 100# left 85# Lateral Pinch: right 16# left 12# Tripod Pinch: right 12# left 12# Strength Comments: pt demo with rolled shoulder forward. Nine Hole Peg Right: 22.77 sec. Left: 26.52 sec. Stroke Specific Quality of Life Total SS-QOL Score: 139 Goals Goal:: pt will demo a increase in left heel gummer strength by 10# to increase pts ind. with ADLS by d/c Goal:: pt will demo a decrease on left handed 9-hole peg test by 5 sec. to indicate increase in FMS by d.c Goal:: pt will demo understanding of using AD ex. and energy conservation juanita. by end of 3 rd visit. to decrease SOB. pt will report increase IND with donning coat by d.c pt will report the ability to hold water bottle with left hand without dropping by d.c Goal:: pt will demo SpO2 levels above 90% when performing UB ex. Pt demo know of use of energy conservation juanita. by end of 2nd session Rehabilitation General Assessment: pt demo with a decline in pts functional UB strength since his Stroke on September 28, 2024. pt demo with need for skilled OT services 1-2x week for 4 weeks to challenge pt to reach his maximal rehab potential. pt demo understanding and and pts agree to POC. pt does report difficulty with cognition and would like a speech therapy order to evaluate his cognitive ability since his stroke. pts will call and get speech order from family and set apt. up. Rehabilitation Potential: Good Anticipated Interventions Anticipated Interventions: Strengthening, Fine Motor Coord/Josue and Neuro Reeducation Visit Plan Frequency: 1-2x /Week Duration: 4 Weeks TEXT: Thank you for the opportunity to evaluate your patient. For Medicare and Medicare HMO plans, please review the plan of care and approve it. It will need to be FAXED BACK to us at [phone] for Medicare purposes. Please let me know if there are questions or concerns regarding this plan of care. Physician Signature: Date:
--- NOTE | 2024-10-23 15:53 | HP.SP.EV_ITS ---
Visit History Visit Info Date of Eval: 10/23/24 Today is Visit #: 1 [employer] Operator: PO History Attending Doctor: Referring Doctor: Reason for Referral: STROKE RX HERE sp- memory loss Medical Diagnosis: Acute CVA Date of Onset of Diagnosis: 09/26/24 Previous speech therapy: No Other Relevant Medical History/Diagnoses/Surgery: Hx of CVA, chronic respiratory failure, microalbuminemia due to type 2 diabetes, obstructive sleep apnea, insulin-dependent diabetic on insulin pump, anemia, positive rheumatoid factor, chronic diastolic congestive heart failure Smoking Status: Never smoker Diagnosis Diagnosis: Cognitive functioning WNL Pain Is pain an issue with your current prescribed condition?: No Personal Preferred language: Togolese Patient Allergies Allergies Allergies: Allergies metoclopramide HCl (From Reglan) Allergy (Severe, Verified 10/12/24 10:56) Anaphylaxis CLQT CLQT CLQT Administered: Yes CLQT: Cognitive Linguistic Quick Test (CLQT) is a criterion - referenced assessment designed for adults between the ages of 18 and 89 with known or suspected neurological dysfuntions. The CLQT is to assess strength and weaknesses in five cognitive domains. Severity ratings are within normal limits, mild, moderate, severe deficits. The subtests are as follows: Date: 10/23/24 Attention Attention: WNL Memory Memory: WNL Executive Functions Executive Functions: WNL Language Language: WNL Visuospatial Skills Visuospatial Skills: WNL Composite Severity Rating Composite Severity Rating: WNL and Mild Clock Drawing Severity Rating Clock Drawing Severity Rating: Mild CLQT Comments -: -: Pt scored 10/13 on clock drawing due to forgetting one number as well as mild spacing differences with the hour and minute hands. Reference: Neuro-QoL instrument Radiation Oncology Patient Plan Plan Plan: Cas's scores on the Cognitive Linguistic Quick Test (CLQT+) indicate that his current level of functioning for attention, memory, language, executive functioning, and visuospatial skills are within normal limits for his age. At this time, skilled speech therapy is not recommended. Recommendations Treatment Warranted: No Education Patient has Indicated that the Following Identified Educational Needs: None The Patient has indicated that they have no educational or learning abilities that may effect their care.: Yes Patient Instruction Patient Education: Diagnosis Person Taught: Patient and Family Response to teaching: Verbalize Understanding
--- NOTE | 2024-11-19 14:28 | HP.OTDCSUM ---
Discharge Summary D/C Summary: It has been my pleasure to treat KRUNAL LEOS under orders from Dr. Karina Benítez DO, for the diagnosis of TIA for a total of 5 visit(s). Please see the following information for a summary of their discharge status. Overall Improvement % Improvement: 60 Goals Patient Goals: Use Hand/Wrist/Arm Normally Again and Resume Former Household Responsibilities (Cooking,Cleaning,Yard, etc.) Goal:: pt will demo a increase in left bods developer strength by 10# to increase pts ind. with ADLS by d/c L 90# R 105# Goal:: pt will demo a decrease on left handed 9-hole peg test by 5 sec. to indicate increase in FMS by d.c L hand 32 sec R hand 24 sec Goal:: pt will demo understanding of using AD ex. and energy conservation juanita. by end of 3 rd visit. to decrease SOB. goal met pt will report increase IND with donning coat by d.c min a pt will report the ability to hold water bottle with left hand without dropping by d.c goal met Goal:: pt will demo SpO2 levels above 90% when performing UB ex. goal met Pt demo know of use of energy conservation juanita. by end of 2nd session goal met Plan Plan: Continue POC: 4 weeks (1-2x week) D/C Information Discharge Comments: this 59 year olf male seen in OT dx of stroke for improved strength and training in EC techniques pt progress in POC and discharge this date with plan to continue exercises at home while monitoring 02 d/c sentence: If there are questions or concerns regarding this patient's occupational therapy, please fell free to call me at [phone]. Thank you for the referral of this patient. Sincerely, Amanda Devlin
--- NOTE | 2024-11-19 14:29 | HP.OT.NRP ---
Patient Information Patient Information: KRUNAL LEOS was seen in my office for initial evaluation on 10/13/24. The following Plan of Care was established for this patient: POC Established Initial Frequency: 1-2x /Week Initial Duration: 4 Weeks Plan: Continue POC: 4 weeks (1-2x week) Anticipated Interventions Anticipated Interventions: Strengthening, Fine Motor Coord/Josue and Neuro Reeducation Last Seen Last Seen: This patient was last seen in our office 11/19/24. Pertinent comments regarding their Occupational therapy will appear below: this 59 year olf male seen in OT dx of stroke for improved strength and training in EC techniques pt progress in POC and discharge this date with plan to continue exercises at home while monitoring 02 At this point I will be discontinuing this patient from occupational therapy. I would be happy to see this patient again in the future if found appropriate by the physician. Thank you! Amanda Devlin
== END 2024-11-19 19:00 | disposition home or self-care (01) ==
LOC: OT 14:00
PROVIDERS: PCP Family Medicine; Referring Provider Internal Medicine; Visit Provider Internal Medicine
DX: Z86.73 Personal history of transient ischemic attack (TIA), and cerebral infarction without residual deficits (principal); R53.1 Weakness; I50.9 Heart failure, unspecified
CPT/HCPCS: 92523; 97110; 97161; 97167; 97530

== ENCOUNTER 2024-11-26 09:15 | Inpatient (IN) | payer OTHER, SELFPAY ==
[2024-11-26] VITALS (22 sets, daily range): BP systolic 79–155; BP diastolic 50–88; PULSE 81–99; RESP 16–30; TEMP 36.4–37.9; O2SAT 95–100; BMI 47.2; BMI 48.1
--- NOTE | 2024-11-26 09:38 | RAD_ITS ---
PROCEDURE: PELVIS 1 OR 2 VIEWS 11/26/2024 REASON FOR EXAM: FALL, RIGHT HIP PAIN TECHNIQUE: PELVIS 1 OR 2 VIEWS COMPARISON: Abdomen study of 04/24/2024. RAD/Pelvis 1 or 2 Views IMPRESSION: Degenerative changes are again seen of the visualized lower lumbar spine. Sacroiliac joints appear symmetric and within the normal range for age. Mild asymmetric right hip joint degenerative changes are seen, with mild supero lateral joint narrowing. No evidence of femoral head osteonecrosis. No acute fracture or dislocation is seen. If clinical concern persists, short-term follow-up imaging may be obtained to r ule out a currently occult fracture. Reading Location: [place] [id number]
--- NOTE | 2024-11-26 09:38 | CT_ITS ---
PROCEDURE: SPINE CERVICAL WITHOUT CONTRAS N/A REASON FOR EXAM: FALL Weakness. TECHNIQUE: SPINE CERVICAL WITHOUT CONTRAS Coronal and Sagittal reconstruction series were provided. One or more dose reduction techniques were used (e.g., Automated exposure control, adjustment of the mA and/or kV according to patient size, use of iterative reconstruction technique. RADIATION DOSE SUMMARY: CTDlvol: 28.33 mGy DLP: 719.9 mGycm COMPARISON: None FINDINGS: Alignment: Reverse cervical lordosis. Vertebrae: No vertebral fracture. Soft Tissues: Atherosclerotic calcification of the carotid bifurcation. Other: There is evidence of increased interstitial markings in the lung apices with evidence of coalescence suggestive of possible chronic scarring. C1-2: Degenerative changes of the atlantoaxial joint. C2-3: Mild degree of disc space narrowing. Facet joint osteoarthritis. No stenosis seen. C3-4: Minimal anterior listhesis of C3 on C4 most likely secondary to the facet joint osteoarthritis and hypertrophy worse on the right side. Uncovertebral arthrosis. Mild bilateral neural foraminal stenosis. C4-5: Mild degree of disc space narrowing. Spondylosis. Uncovertebral arthrosis. Mild bilateral neural foraminal stenosis. C5-6: Marked degree of disc space narrowing. Spondylosis. No stenosis C6-7: Disc space narrowing. Spondylosis. No evidence of stenosis. C7-T1: Unremarkable CT/Spine Cervical without Contras IMPRESSION: DEGENERATIVE CHANGES OF THE CERVICAL SPINE. NO EVIDENCE OF SIGNIFICANT OSSEOUS CENTRAL CANAL OR NEURAL FORAMINAL STENOSIS. Reading Location: [facility]
--- NOTE | 2024-11-26 09:38 | RAD_ITS ---
PROCEDURE: CHEST PA AND LATERAL 11/26/2024 REASON FOR EXAM: WEAKNESS TECHNIQUE: Three-view CHEST PA AND LATERAL COMPARISON: PA and lateral chest 08/12/2024. RAD/Chest PA and Lateral IMPRESSION: Examination limited by hypoinflation, as well as extensive patient motion, part icularly on both lateral views. No gross acute pneumonic process is noted. Probable chronic lung changes. No pleural effusion or pneumothorax is seen. The cardiomediastinal silhouette is stable, without evidence of cardiomegaly. Generalized osteopenia is present. Mild thoracic spine degenerative changes are seen, along with DISH. No acute osseous process is identified. Reading Location: [place] [id number]
--- NOTE | 2024-11-26 09:38 | CT_ITS ---
EXAM: NONCONTRAST CT SCAN OF THE HEAD CLINICAL HISTORY: Fall COMPARISON: September 26, 2024 TECHNIQUE: Serial axial series through the head were obtained without contrast. 2-D coronal and sagittal reformats were then obtained. FINDINGS: Brain: There is low-density in the deep white matter in the right and left, likely chronic ischemic change, similar to the prior. There is no acute large territorial infarct, intracranial hemorrhage, midline shift or mass effect. The sella and pineal gland regions appear unremarkable. There is no evidence of cerebellar tonsillar herniation. Ventricles: There is no acute hydrocephalus. Basilar cisterns are patent. Paranasal sinuses: There is a 1.5 cm mucous retention cyst in the left maxillary sinus, unchanged. Mastoid air cells: There is fluid density in a portion of the left mastoid air cells, similar to the prior. Calvarium: The bony calvarium is intact. Orbits: The bilateral globes are symmetric, without retrobulbar compressive mass lesion or hemorrhage. CT/Brain/Head without Contrast IMPRESSION: There is low-density in the deep white matter in the right and left, likely chr onic ischemic change, similar to the prior. There is a 1.5 cm mucous retention cyst in the left maxillary sinus, unchanged. There is fluid density in a portion of the left mastoid air cells, similar to t he prior. There is no visible acute traumatic injury. Reading Location: [facility]
--- NOTE | 2024-11-26 09:39 | EKG12_ITS ---
Test Reason : Blood Pressure : */* mmHG Vent. Rate : 88 BPM Atrial Rate : 88 BPM P-R Int : 156 ms QRS Dur : 108 ms QT Int : 382 ms P-R-T Axes : 25 -17 126 degrees QTcB Int : 462 ms Sinus rhythm with occasional Premature ventricular complexes Left ventricular hypertrophy with repolarization abnormality ( R in aVL , Miguel product , Romhilt-Waggoner ) Inferior infarct , age undetermined Abnormal ECG Confirmed by GERRY BUSTAMANTE ([id number]), sound editor JULIAN COSTELLO ([id number]) on 12/01/2024 6:30:22 AM Referred By: Confirmed By: GERRY BUSTAMANTE
--- NOTE | 2024-11-26 09:40 | EX.ED.DYSGE1 ---
HPI History of Present Illness Chief Complaint: Weakness Narrative Narrative: Patient is a 59-year-old male presenting to the emergency department for generalized weakness. Patient has a past medical history of an acute right MCA stroke, CKD, diabetes, CHF, hypoxia on baseline 4 L nasal cannula at rest and 8 L nasal cannula with activity. Patient states yesterday he was feeling at baseline. Reports that last night in the middle of the night he felt very weak overall. States this morning he tried to get up and felt so weak that he fell to the ground. Reports that he landed mainly on his right hip. Denies any his head or any loss of consciousness. He is on oral anticoagulation. He denies fever, chest pain, shortness of breath, abdominal pain, nausea, vomiting, diarrhea, dysuria or hematuria. Reports some chills. Denies any focal weakness or numbness. Denies any speech difficulty or visual changes. He does have left-sided minor facial droop is a deficit from prior stroke. [facility] Medical History Hyperlipidemia Elevated troponin 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 with hyperglycemia Renal insufficiency Interstitial lung disease Ischemic cerebrovascular accident (CVA) CHF (congestive heart failure) Chronic respiratory failure with hypoxia KIANNA (obstructive sleep apnea) Presence of insulin pump CKD (chronic kidney disease) Hypothyroidism Essential (primary) hypertension Diabetes Acute hypoxemic respiratory failure Chronic diastolic CHF (congestive heart failure) Obesity Exertional shortness of breath Iron deficiency anemia due to chronic blood loss Current use of manager intermediate anticoagulation Morbid obesity with BMI of 45.0-49.9, adult Atherosclerotic heart disease of [place] coronary artery without angina pectoris Mini stroke (~10/01/23) Peripheral vestibulopathy Cranial nerve disorder Polyneuropathy Wears glasses Depression Anxiety Cancer Thyroid disease Insulin dependent diabetes mellitus Arthritis History of renal disease Prostate disease Gastric reflux CPAP (continuous positive airway pressure) dependence Sleep apnea Shortness of breath on exertion History of echocardiogram History of stress test History of CHF (congestive heart failure) Cardiology follow-up encounter History of atrial fibrillation Neuropathy Multiple thyroid nodules Microalbuminuria Thyroid nodule Double vision Non-proliferative diabetic retinopathy KIANNA treated with BiPAP Vertigo Congestive heart failure (CHF) Low testosterone Carotid stenosis High cholesterol Vision loss of right eye Vision loss of left eye Anemia Non-smoker Atrial fibrillation Hypertension Paroxysmal atrial fibrillation Polyneuropathy due to type 2 diabetes mellitus History of non-ST elevation myocardial infarction (NSTEMI) (03/28/20) TIA (transient ischemic attack) (2019) Hodgkin disease GERD (gastroesophageal reflux disease) BPH (benign prostatic hyperplasia) Anxiety and depression Morbid obesity with BMI of 45.0-49.9, adult Nephrolithiasis Diabetes mellitus, type II Home Medications ?Medication ?Instructions ?Recorded ?Last Taken ?Type tamsulosin 0.4 mg capsule 0.4 mg PO DAILY prostate 09/08/15 09/26/24 History duloxetine 60 mg capsule,delayed 60 mg PO DAILY depression 04/17/18 09/26/24 History release (Cymbalta) 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,blood bank supervisor,cont #1 ea 07/26/20 Unknown Rx (Dexcom G6 Credit Collections Manager) 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 transmitter (Dexcom #1 ea 12/29/21 Unknown Rx G6 Transmitter device) infusion set for insulin pump 10/08/22 Unknown History insulin pump controller 10/08/22 Unknown History 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 sensor (Dexcom G6 #1 ea 02/25/23 Unknown Rx Sensor device) insulin regular hum U-500 conc 500 75 unit (0.15 mL) continuous 11/11/23 09/26/24 Rx unit/mL subcutaneous soln (Humulin subcutaneous infusion DAILY blood R U-500 (Concentrated) Insulin) sugar #20 mL ferrous sulfate 325 mg (65 mg 325 mg PO DAILY anemia 03/02/24 09/26/24 History iron) tablet (Feosol) amlodipine 5 mg tablet 5 mg PO QDAY blood pressure 03/13/24 09/26/24 History aspirin 325 mg tablet 325 mg PO DAILY heart health 03/13/24 09/26/24 History metoprolol succinate 100 mg 100 mg PO DAILY heart #90 tabs 03/27/24 09/26/24 Rx tablet,extended release 24 hr lisinopril 40 mg tablet 40 mg PO DAILY blood pressure 04/12/24 09/26/24 History ticagrelor 90 mg tablet (Brilinta) 90 mg PO BID 05/21/24 09/26/24 History furosemide 40 mg tablet (Lasix) 40 mg PO BID diuretic #270 tabs 06/23/24 09/26/24 Rx pantoprazole 40 mg tablet,delayed 40 mg PO BID acid reflux #60 tabs 07/22/24 09/26/24 Rx release (Protonix) empagliflozin 25 mg tablet 25 mg PO DAILY diabetes #30 tabs 08/12/24 09/26/24 Rx (Jardiance) apixaban 5 mg tablet (Eliquis) 5 mg PO BID blood thinner #180 tabs 08/31/24 09/26/24 Rx buspirone 10 mg tablet 10 mg PO BID Anxiety 09/16/24 09/26/24 History oxycodone-acetaminophen 5 mg-325 1 tab PO TID PRN pain 09/16/24 09/25/24 History mg tablet prednisone 5 mg tablet See Rx Instructions PO .COMPLEX 09/16/24 09/26/24 History steriod fenofibrate 54 mg tablet 134 mg PO QDAY 10/27/24 Unknown History rosuvastatin 40 mg tablet 40 mg PO QDAY #30 tabs 10/27/24 Unknown Rx albuterol sulfate 2.5 mg/3 mL 2.5 mg inhalation Q4H PRN 11/25/24 Unknown History (0.083 %) solution for nebulization shortness of breath or wheezing levothyroxine 125 mcg tablet 125 mcg PO QDAY 11/25/24 Unknown History pirfenidone 267 mg tablet 267 mg PO TID 11/25/24 Unknown History Allergy/AdvReac Type Severity Reaction Status Date / Time metoclopramide HCl (From Allergy Severe Anaphylaxis Verified 11/25/24 12:47 Reglan) Family History Brother Heart disease Mother CVA (cerebral vascular accident) Hypertension Rheumatoid arthritis Father Diabetes Other Alcohol abuse ulcer disease Surgical History History of cardiac catheterization History of lymph node excision History of left heart catheterization (2009) Hx of nephrolithotomy with removal of calculi History of thoracentesis (2015) Social History household members: spouse and none Smoking Status: Never smoker Electronic Cigarette Use: not used second hand exposure: No alcohol intake: never substance use type: does not use what type of physical activity do you participate in: none ROS ROS ED ROS Narrative see HPI EXAM Physical Exam Narrative Exam Narrative: Vital signs: Reviewed General: Alert and oriented x 3. No acute distress. Chronically ill-appearing HEENT: Head is normocephalic and atraumatic, sinuses nontender, pupils equal round and reactive. Nares are patent. Oropharynx and throat exams normal. Neck: Supple without lymphadenopathy nontender. No midline cervical spinal tenderness to palpation. No step-offs or deformities. Cardiovascular: Regular rate and rhythm, no murmurs. No rubs or gallops. Normal S1 and S2 Respiratory: Clear to auscultation bilaterally. No wheezes, rales, rhonchi. On baseline 4 L nasal cannula Abdominal: Soft and nontender. Normal bowel sounds. No guarding or rebound. Nonsurgical abdomen Extremities: No tenderness. No bruising. Normal range of motion. Normal sensation. Skin: No rash or redness. Neurological: Cranial nerves II through XII are grossly intact. Normal strength and sensation. Normal cerebellar function The rest of the physical exam is unremarkable Const Vital Signs: 11/26/24 09:16 11/26/24 09:16 11/26/24 09:23 Temperature 97.9 F 97.9 F Temperature Source Oral Oral Pulse Rate 92 92 Respiratory Rate 27 H 27 H Respiratory Effort Normal Non-Labored Respiratory Pattern Tachypnea Blood Pressure 86/50 L 86/50 L Blood Pressure Mean 62 62 Pulse Ox 97 97 Oxygen Delivery Method Nasal Cannula Nasal Cannula Oxygen Flow Rate (L/min) 4 4 11/26/24 09:39 11/26/24 09:52 11/26/24 10:00 Temperature Temperature Source Pulse Rate 89 Respiratory Rate 23 H Respiratory Effort Respiratory Pattern Blood Pressure 80/56 L Blood Pressure Mean 63 Pulse Ox 98 Oxygen Delivery Method Nasal Cannula Oxygen Flow Rate (L/min) 11/26/24 10:00 11/26/24 10:15 11/26/24 10:26 Temperature 99.9 F H 100.1 F H Temperature Source Core Core Pulse Rate 88 88 Respiratory Rate 24 H 24 H Respiratory Effort Respiratory Pattern Blood Pressure 80/56 L 109/59 L 98/55 L Blood Pressure Mean 63 75 69 Pulse Ox 99 99 Oxygen Delivery Method Nasal Cannula Oxygen Flow Rate (L/min) 11/26/24 10:30 11/26/24 10:45 11/26/24 11:00 Temperature 100.2 F H 100.0 F H 100.0 F H Temperature Source Core Core Core Pulse Rate 91 86 81 Respiratory Rate 22 H 24 H 23 H Respiratory Effort Respiratory Pattern Blood Pressure 98/55 L 90/56 L 106/65 Blood Pressure Mean 69 67 78 Pulse Ox 100 100 100 Oxygen Delivery Method Oxygen Flow Rate (L/min) 11/26/24 11:15 11/26/24 11:30 11/26/24 11:45 Temperature 99.6 F H 99.4 F H 99.5 F H Temperature Source Core Core Core Pulse Rate 90 85 95 Respiratory Rate 23 H 18 26 H Respiratory Effort Respiratory Pattern Blood Pressure 109/66 104/60 99/88 H Blood Pressure Mean 79 74 93 Pulse Ox 96 100 99 Oxygen Delivery Method Oxygen Flow Rate (L/min) 11/26/24 11:54 11/26/24 12:00 Temperature 99.5 F H 99.5 F H Temperature Source Core Core Pulse Rate 86 92 Respiratory Rate 21 H 30 H Respiratory Effort Respiratory Pattern Blood Pressure 99/88 H 79/52 L Blood Pressure Mean 91 62 Pulse Ox 99 98 Oxygen Delivery Method Nasal Cannula Oxygen Flow Rate (L/min) 4 NIHSS NIHSS stroke assessment: 1a Level of Consciousness: 0 1b LOC Questions (Score 2 if aphasic/stupor): 0 1c LOC Commands (Only score 1st attempt): 0 2 Best Gaze (If aphasic, use reflexive mvmts.): 0 3 Visual: 0 4 Facial Palsy: 1 (Residual deficit from prior stroke) 5 Motor Arm Right (UN = amputation/fusion): 0 5 Motor Arm Left: 0 6 Motor Leg Right: 0 6 Motor Leg Left: 0 7 Limb ataxia (Only + if out of proportion): 0 8 Sensory (Aphasia/stupor=0 or 1, coma=2): 0 9 Best Language: 0 10 Dysarthria (mute, coma=2, intubated=UN): 0 11 Extinction and Inattention (only scored if +): 0 Total Score: 1 MDM MDM MDM Narrative Medical decision making narrative: Patient is a 59-year-old male presenting to the emergency department for generalized weakness. He was seen and examined. Initial blood pressure of 86/50. Patient mentating normally. Mildly tachypneic on initial evaluation. He is on his baseline 4 L nasal cannula. Afebrile on arrival. Differential includes but is not limited to: Pneumonia, UTI, viral illness, ACS, less likely intraabdominal source of infection no abdominal pain, nausea, vomiting, diarrhea CBC with leukocytosis of 18.7 which is mildly increased from his baseline however he is on chronic prednisone. Lactate normal at 1.8. BMP with baseline CKD. Glucose of 336, no anion gap, normal bicarb. VBG with no acidosis. No DKA. Troponin of 59. Baseline in the 40s. will trend. Urinalysis with no evidence of infection. Viral swab negative. CT brain with no acute changes. CT cervical spine, chest x-ray, pelvis x-ray with no acute traumatic findings. No opacities or pneumothorax on chest x-ray. EKG with sinus rhythm with occasional PVC. LVH. No ischemic changes. No dysrhythmia. Unknown source of infection at this time however with initial hypotension, tachycardia no febrile here, Tylenol and patient having Zosyn given. Patient will require admission for further management workup. Patient is agreeable. Admitted to Dr. Johnson for further management. Clinical impression: Sepsis of unknown origin leukocytosis weakness fall History & Record Review Discussion w/independent historian: Patient Additional record(s) reviewed:: Prior inpatient record and Prior ED visit Lab Data Attestation: I reviewed the patient's lab results. Labs: Laboratory Results - last 24 hr 11/26/24 11/26/24 09:40 09:50 WBC 18.7 H RBC 4.14 L Hgb 10.0 L Hct 32.0 L MCV 77.3 L MCH 24.2 L MCHC 31.3 L RDW Std Deviation 51.3 H RDW Coeff of Gavi 18.7 H Plt Count 246 MPV 10.3 Immature Gran % (Auto) 1.100 H Neut % (Auto) 76.5 H Lymph % (Auto) 8.9 L Cherry % (Auto) 12.8 H Eos % (Auto) 0.4 Baso % (Auto) 0.3 Absolute Neuts (auto) 14.3 H Absolute Lymphs (auto) 1.67 Nucleated RBC % 0 Platelet Estimate ADEQUATE Ovalocytes 1+ Sodium 135 Potassium 3.8 Chloride 96 L Carbon Dioxide 23.3 Anion Gap 15 BUN 42 H Creatinine 2.06 H Estim Creat Clear Calc 53.51 Est GFR (MDRD) Non-Af 36 L BUN/Creatinine Ratio 20.6 H Glucose 336 H Lactic Acid 1.8 Calcium 9.1 Total Bilirubin 0.71 AST 13 ALT 18 Alkaline Phosphatase 58 Troponin T High Sens 59 H* D Total Protein 7.2 Albumin 3.7 Globulin 3.5 Albumin/Globulin Ratio 1.1 Urine Color Yellow Urine Clarity Clear Urine pH 6.0 Ur Specific [place] 1.015 Urine Protein 15 H Urine Glucose (UA) 1000 H Urine Ketones Negative Urine Occult Blood Negative Urine Nitrite Negative Urine Bilirubin Negative Urine Urobilinogen Normal Ur Leukocyte Esterase Negative Urine RBC 0 SEEN Urine WBC 0 SEEN Ur Squamous Epith Cells 0-5 SEEN Urine Bacteria 0 SEEN Urine Mucus 0 SEEN ABG Data ABG results: ABG 11/26/24 10:34 Specimen Type JOSHUA Sample Site Not entered VBG pH 7.44 H VBG pO2 40 VBG HCO3 25 VBG Total CO2 26 VBG O2 Sat (Calc) 77 H VBG Base Excess 1 POC Mix VBG pCO2 Pt Tmp 37.0 L O2 Delivery Device Not entered Radiography Chest X-Ray - ED: 2 View, Read by ED Physician, Normal, No Acute Disease and No Infiltrates X-Ray: Right Hip, Left Hip, Read by ED Physician and No Fracture Diagnostic Testing: Clinical Impression(s) from Imaging Studies Brain CT 11/26/24 09:38 IMPRESSION: There is low-density in the deep white matter in the right and left, likely chronic ischemic change, similar to the prior. There is a 1.5 cm mucous retention cyst in the left maxillary sinus, unchanged. There is fluid density in a portion of the left mastoid air cells, similar to the prior. There is no visible acute traumatic injury. Reading Location: [facility] Cervical Spine CT 11/26/24 09:38 IMPRESSION: DEGENERATIVE CHANGES OF THE CERVICAL SPINE. NO EVIDENCE OF SIGNIFICANT OSSEOUS CENTRAL CANAL OR NEURAL FORAMINAL STENOSIS. Reading Location: [id number] Chest X-Ray 11/26/24 09:38 IMPRESSION: Examination limited by hypoinflation, as well as extensive patient motion, particularly on both lateral views. No gross acute pneumonic process is noted. Probable chronic lung changes. No pleural effusion or pneumothorax is seen. The cardiomediastinal silhouette is stable, without evidence of cardiomegaly. Generalized osteopenia is present. Mild thoracic spine degenerative changes are seen, along with DISH. No acute osseous process is identified. Reading Location: [facility] Pelvis X-Ray 11/26/24 09:38 IMPRESSION: Degenerative changes are again seen of the visualized lower lumbar spine. Sacroiliac joints appear symmetric and within the normal range for age. Mild asymmetric right hip joint degenerative changes are seen, with mild superolateral joint narrowing. No evidence of femoral head osteonecrosis. No acute fracture or dislocation is seen. If clinical concern persists, short-term follow-up imaging may be obtained to rule out a currently occult fracture. Reading Location: [facility]- Discharge Plan Triage Chief Complaint: Weakness ED Provider: Betina Martinez Dx/Rx/DC Orders Prescriptions: No Action (DME) Dexcom G6 Credit Collections Manager Misc See Rx Instructions .ROUTE .MEDSUPPLY Qty: 1 0RF Rx Instructions: As directed (DME) infusion set for insulin pump Infusion Set See Rx Instructions .Route Rx Instructions: As directed (DME) insulin pump controller Misc See Rx Instructions .Route Rx Instructions: As directed aspirin 325 mg tablet 325 mg PO DAILY Patient Comments: coated amlodipine 5 mg tablet 5 mg PO QDAY prednisone 5 mg tablet See Rx Instructions PO .COMPLEX Rx Instructions: patient currently taking 15mg daily. tapers down to 10mg daily starting 10/07/24 oxycodone-acetaminophen 5-325 mg tablet 1 tab PO TID PRN (Reason: pain) fenofibrate 54 mg tablet 134 mg PO QDAY rosuvastatin 40 mg tablet 40 mg PO QDAY Qty: 30 11RF Brilinta 90 mg tablet 90 mg PO BID albuterol sulfate 2.5 mg /3 mL (0.083 %) solution for nebulization 2.5 mg inhalation Q4H PRN (Reason: shortness of breath or wheezing) levothyroxine 125 mcg tablet 125 mcg PO QDAY pirfenidone 267 mg tablet 267 mg PO TID tamsulosin 0.4 MG capsule 0.4 mg PO DAILY duloxetine [Cymbalta] 60 MG capsule,delayed release(DR/EC) 60 mg PO DAILY buspirone 10 mg tablet 10 mg PO BID ferrous sulfate [Feosol] 325 mg (65 mg iron) tablet 325 mg PO DAILY lisinopril 40 mg tablet 40 mg PO DAILY (DME) Dexcom G6 Transmitter Device See Rx Instructions .ROUTE .MEDSUPPLY Qty: 1 3RF Rx Instructions: As directed (DME) Dexcom G6 Sensor Device See Rx Instructions .ROUTE .MEDSUPPLY Qty: 1 6RF Rx Instructions: As directed Humulin R U-500 (Conc) Insulin 500 unit/mL solution 75 unit continuous subcutaneous infusion DAILY Qty: 20 5RF Patient Comments: INSULIN PUMP; pt. states that he does bolus with meals based on pump's suggested dose; unsure of basal rate; pump is currently broken, to bring in new wiring in AM metoprolol succinate 100 mg tablet extended release 24 hr 100 mg PO DAILY Qty: 90 3RF furosemide [Lasix] 40 mg tablet 40 mg PO BID Qty: 270 3RF Rx Instructions: Take extra 40 mg dose at 5 PM for increased leg swelling or weight gain 5 pounds in 1 week. pantoprazole [Protonix] 40 mg tablet,delayed release (DR/EC) 40 mg PO BID Qty: 60 3RF Jardiance 25 mg tablet 25 mg PO DAILY Qty: 30 5RF Eliquis 5 mg tablet 5 mg PO BID Qty: 180 3RF Primary Care Provider: Brandt Winter Referrals: Brandt Winter MD [Primary Care Provider] - Print Language: Cymraes
[2024-11-26] MEDS: 0.9% Normal Saline (1000mL) 1,000 ML 1000 ML IV (09:53)
[2024-11-26 10:01] LABS: Mucous, Urine 0 SEEN /hpf (<or=2+); Red Blood Cells-Urine 0 SEEN /hpf (0-5)
[2024-11-26 10:06] LABS: Color, Urine Yellow (Yellow); Glucose, Dipstick 1000 mg/dl (Normal); Ketone-Dipstick Negative (Negative); Leukocyte Esterase-Dipstick Negative /ul (Negative); Nitrite-Dipstick Negative (Negative); Occult Blood-Urine Negative /ul (Negative); Protein-Dipstick 15 mg/dl (Negative); Specific Gravity, Urine 1.015 (1.002-1.030); Urine Bilirubin Dipstick Negative (Negative)
[2024-11-26 10:08] LABS: Hematocrit 32.0 % (40-54); Hemoglobin 10.0 g/dL (13.0-16.5); Immature Granulocytes Count 0.210 X10^3/uL (0.0-0.0); Mean Corp Hgb Conc 31.3 g/dL (32-36); Mean Corpuscular Volume 77.3 fL (80-94); Mean Platelet Vol. 10.3 fl (6.2-12.0); NRBC Flagged by Analyzer 0 % (0-5); POSITIVE DIFFERENTIAL YES; Platelet Count 246 K/mm3 (150-450); RBC Distribution Width CV 18.7 % (11.6-14.6); RBC Distribution Width SD 51.3 fl (35.1-43.9); Red Blood Count 4.14 M/mm3 (4.6-6.2); White Blood Count 18.7 K/mm3 (4.4-11.0)
[2024-11-26 10:12] LABS: Differential Indicated SCAN CRITERIA MET
[2024-11-26 10:12] LABS: Squamous Epithelial Cells - UA 0-5 SEEN /hpf (0-5)
--- NOTE | 2024-11-26 10:31 | ED.RN ---
talked to on the phone and updated with patient permission. home med list obtained
[2024-11-26 10:37] LABS: SITE Not entered; VBG BASE EXCESS 1 mmol/L (-1.0-3.5); VBG PO2 40 mmHg (25-40); VBG SO2 77 % (50-70); VBG TCO2 26 mmol/L (23-33)
[2024-11-26 10:56] LABS: AST(SGOT) 13 U/L (<=37); Alanine Aminotransfer ALT/SGPT 18 U/L (<=46); Albumin, Serum 3.7 g/dL (3.4-4.8); Alkaline Phosphatase 58 U/L (40-129); Anion Gap 15 (5-15); BUN 42 mg/dL (4-19); BUN/Creat Ratio 20.6 RATIO (10-20); Calcium,Total 9.1 mg/dL (7.6-11.0); Carbon Dioxide 23.3 mmol/L (21.0-32.0); Chloride 96 mmol/L (98-108); Estimated Creatinine Clearance 53.51 ml/min (50-250); Globulin 3.5 g/dL (2.2-4.2); Glucose 336 mg/dL (70-99); Potassium 3.8 mmol/L (3.3-5.1)
[2024-11-26 10:58] LABS: Troponin T High Sensitivity 59 ng/L (<=22)
[2024-11-26] MEDS: Piperacil/Tazobactam 4.5 GM in 0.9% Normal Saline (100mL MB+) 100 ML IV (11:35)
[2024-11-26] MEDS: Vancomycin HCl 2,000 MG in 0.9% Normal Saline (500mL Bag) 500 ML 250 MG IV (12:09)
--- NOTE | 2024-11-26 12:09 | PCM.HP.STD ---
[facility] - General General Date of Service: 11/26/24 Chief Complaint: Weakness HPI Narrative KRUNAL LEOS, is a 59 M with a history of pulmonary fibrosis presents with weakness. Weakness began earlier this morning where he was having difficulty walking to the bathroom and then get to the point where he just fell because he was so weak. At baseline he is limited no due to his pulmonary disease and does require being put in a wheelchair for going to doctors visits and such. Over the past few days, he has noticed a boil on his right leg. Today feels much worse given the location, which is in his groin, he is not able to see it. He presented to the emergency room and was diagnosed with sepsis, received a liter of IV fluids as well as vancomycin and Zosyn. 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 Morbid obesity with BMI of 45.0-49.9, adult Atherosclerotic heart disease of red devil coronary artery without angina pectoris Mini stroke (~10/01/23) Peripheral vestibulopathy Cranial nerve disorder Polyneuropathy Wears glasses Depression Anxiety Cancer Thyroid disease Insulin dependent diabetes mellitus Arthritis History of renal disease Prostate disease Gastric reflux CPAP (continuous positive airway pressure) dependence Sleep apnea Shortness of breath on exertion History of echocardiogram History of stress test History of CHF (congestive heart failure) Cardiology follow-up encounter History of atrial fibrillation Neuropathy Multiple thyroid nodules Microalbuminuria Thyroid nodule Double vision Non-proliferative diabetic retinopathy KIANNA treated with BiPAP Vertigo Congestive heart failure (CHF) Low testosterone Carotid stenosis High cholesterol Vision loss of right eye Vision loss of left eye Anemia Non-smoker Atrial fibrillation Hypertension Paroxysmal atrial fibrillation Polyneuropathy due to type 2 diabetes mellitus History of non-ST elevation myocardial infarction (NSTEMI) (03/28/20) TIA (transient ischemic attack) (2019) Hodgkin disease GERD (gastroesophageal reflux disease) BPH (benign prostatic hyperplasia) Anxiety and depression Morbid obesity with BMI of 45.0-49.9, adult Nephrolithiasis Diabetes mellitus, type II Home Medications ?Medication ?Instructions ?Recorded ?Last Taken ?Type tamsulosin 0.4 mg capsule 0.4 mg PO DAILY prostate 09/08/15 09/26/24 History duloxetine 60 mg capsule,delayed 60 mg PO DAILY depression 04/17/18 09/26/24 History release (Cymbalta) 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,activities volunteer,cont #1 ea 07/26/20 Unknown Rx (Dexcom G6 Novelty Dipper) 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 transmitter (Dexcom #1 ea 12/29/21 Unknown Rx G6 Transmitter device) infusion set for insulin pump 10/08/22 Unknown History insulin pump controller 10/08/22 Unknown History 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 sensor (Dexcom G6 #1 ea 02/25/23 Unknown Rx Sensor device) insulin regular hum U-500 conc 500 75 unit (0.15 mL) continuous 11/11/23 09/26/24 Rx unit/mL subcutaneous soln (Humulin subcutaneous infusion DAILY blood R U-500 (Concentrated) Insulin) sugar #20 mL ferrous sulfate 325 mg (65 mg 325 mg PO DAILY anemia 03/02/24 09/26/24 History iron) tablet (Feosol) amlodipine 5 mg tablet 5 mg PO QDAY blood pressure 03/13/24 09/26/24 History aspirin 325 mg tablet 325 mg PO DAILY heart health 03/13/24 09/26/24 History metoprolol succinate 100 mg 100 mg PO DAILY heart #90 tabs 03/27/24 09/26/24 Rx tablet,extended release 24 hr lisinopril 40 mg tablet 40 mg PO DAILY blood pressure 04/12/24 09/26/24 History ticagrelor 90 mg tablet (Brilinta) 90 mg PO BID 05/21/24 09/26/24 History furosemide 40 mg tablet (Lasix) 40 mg PO BID diuretic #270 tabs 06/23/24 09/26/24 Rx pantoprazole 40 mg tablet,delayed 40 mg PO BID acid reflux #60 tabs 07/22/24 09/26/24 Rx release (Protonix) empagliflozin 25 mg tablet 25 mg PO DAILY diabetes #30 tabs 08/12/24 09/26/24 Rx (Jardiance) apixaban 5 mg tablet (Eliquis) 5 mg PO BID blood thinner #180 tabs 08/31/24 09/26/24 Rx buspirone 10 mg tablet 10 mg PO BID Anxiety 09/16/24 09/26/24 History oxycodone-acetaminophen 5 mg-325 1 tab PO TID PRN pain 09/16/24 09/25/24 History mg tablet prednisone 5 mg tablet See Rx Instructions PO .COMPLEX 09/16/24 09/26/24 History steriod fenofibrate 54 mg tablet 134 mg PO QDAY 10/27/24 Unknown History rosuvastatin 40 mg tablet 40 mg PO QDAY #30 tabs 10/27/24 Unknown Rx albuterol sulfate 2.5 mg/3 mL 2.5 mg inhalation Q4H PRN 11/25/24 Unknown History (0.083 %) solution for nebulization shortness of breath or wheezing levothyroxine 125 mcg tablet 125 mcg PO QDAY 11/25/24 Unknown History pirfenidone 267 mg tablet 267 mg PO TID 11/25/24 Unknown History Allergy/AdvReac Type Severity Reaction Status Date / Time metoclopramide HCl (From Allergy Severe Anaphylaxis Verified 11/25/24 12:47 Reglan) Family History Brother Heart disease Mother CVA (cerebral vascular accident) Hypertension Rheumatoid arthritis Father Diabetes Other Alcohol abuse ulcer disease Surgical History History of cardiac catheterization History of lymph node excision History of left heart catheterization (2009) Hx of nephrolithotomy with removal of calculi History of thoracentesis (2015) Social History household members: spouse and none Smoking Status: Never smoker Electronic Cigarette Use: not used second hand exposure: No alcohol intake: never substance use type: does not use what type of physical activity do you participate in: none ROS ROS Narrative On oxygen 22/10. All review of systems were negative except as mentioned above in the history of present illness and the other review of systems. Vital Signs Vital Signs Vital Signs: 11/26/24 09:16 11/26/24 09:16 11/26/24 09:23 Temperature 36.6 C 36.6 C Temperature Source Oral Oral Pulse Rate 92 92 Respiratory Rate 27 H 27 H Respiratory Effort Normal Non-Labored Respiratory Pattern Tachypnea Blood Pressure 86/50 L 86/50 L Blood Pressure Mean 62 62 Pulse Ox 97 97 Oxygen Delivery Method Nasal Cannula Nasal Cannula Oxygen Flow Rate (L/min) 4 4 11/26/24 09:39 11/26/24 09:52 11/26/24 10:00 Temperature Temperature Source Pulse Rate 89 Respiratory Rate 23 H Respiratory Effort Respiratory Pattern Blood Pressure 80/56 L Blood Pressure Mean 63 Pulse Ox 98 Oxygen Delivery Method Nasal Cannula Oxygen Flow Rate (L/min) 11/26/24 10:00 11/26/24 10:15 11/26/24 10:26 Temperature 37.7 C H 37.8 C H Temperature Source Core Core Pulse Rate 88 88 Respiratory Rate 24 H 24 H Respiratory Effort Respiratory Pattern Blood Pressure 80/56 L 109/59 L 98/55 L Blood Pressure Mean 63 75 69 Pulse Ox 99 99 Oxygen Delivery Method Nasal Cannula Oxygen Flow Rate (L/min) 11/26/24 10:30 11/26/24 10:45 11/26/24 11:00 Temperature 37.9 C H 37.8 C H 37.8 C H Temperature Source Core Core Core Pulse Rate 91 86 81 Respiratory Rate 22 H 24 H 23 H Respiratory Effort Respiratory Pattern Blood Pressure 98/55 L 90/56 L 106/65 Blood Pressure Mean 69 67 78 Pulse Ox 100 100 100 Oxygen Delivery Method Oxygen Flow Rate (L/min) 11/26/24 11:15 11/26/24 11:30 11/26/24 11:45 Temperature 37.6 C H 37.4 C H 37.5 C H Temperature Source Core Core Core Pulse Rate 90 85 95 Respiratory Rate 23 H 18 26 H Respiratory Effort Respiratory Pattern Blood Pressure 109/66 104/60 99/88 H Blood Pressure Mean 79 74 93 Pulse Ox 96 100 99 Oxygen Delivery Method Oxygen Flow Rate (L/min) 11/26/24 11:54 11/26/24 12:00 Temperature 37.5 C H 37.5 C H Temperature Source Core Core Pulse Rate 86 92 Respiratory Rate 21 H 30 H Respiratory Effort Respiratory Pattern Blood Pressure 99/88 H 79/52 L Blood Pressure Mean 91 62 Pulse Ox 99 98 Oxygen Delivery Method Nasal Cannula Oxygen Flow Rate (L/min) 4 Weight Weight: 145.1 kg Body Mass Index (BMI) 47.2 Physical Exam Const Constitutional Narrative: Lying in bed. Comfortable. On oxygen. No respiratory distress. No conversational dyspnea. HEENT normocephalic, head/scalp atraumatic, hearing grossly normal bilaterally and moist oral mucous membranes Resp normal respiratory effort and no retractions Resp Narrative: Bibasilar crackles Cardio regular rate, regular rhythm, S1 normal heart sound and S2 normal heart sound GI normal to inspection, nondistended, normoactive bowel sounds, soft to palpation, non-tender and non-distended GI Narrative: Obese. Extremity Extremity Narrative: Nonpitting lower extremity edema. Neuro Neuro Narrative: Area of induration and erythema in the proximal medial right thigh. Does have a open area that was raised and had some blood but not actively bleeding. Psych affect normal Results Lab / Micro Data Attestation: I reviewed the patient's lab results. 11/26/24 09:40 11/26/24 09:40 Labs: Laboratory Results - last 24 hr 11/26/24 09:40: WBC 18.7 H, RBC 4.14 L, Hgb 10.0 L, Hct 32.0 L, MCV 77.3 L, MCH 24.2 L, MCHC 31.3 L, RDW Std Deviation 51.3 H, RDW Coeff of Gavi 18.7 H, Plt Count 246, MPV 10.3, Immature Gran % (Auto) 1.100 H, Neut % (Auto) 76.5 H, Lymph % (Auto) 8.9 L, [place] % (Auto) 12.8 H, Eos % (Auto) 0.4, Baso % (Auto) 0.3, Absolute Neuts (auto) 14.3 H, Absolute Lymphs (auto) 1.67, Nucleated RBC % 0, Platelet Estimate ADEQUATE, Ovalocytes 1+, Sodium 135, Potassium 3.8, Chloride 96 L, Carbon Dioxide 23.3, Anion Gap 15, BUN 42 H, Creatinine 2.06 H, Estim Creat Clear Calc 53.51, Est GFR (MDRD) Non-Af 36 L, BUN/Creatinine Ratio 20.6 H, Glucose 336 H, Lactic Acid 1.8, Calcium 9.1, Total Bilirubin 0.71, AST 13, ALT 18, Alkaline Phosphatase 58, Troponin T High Sens 59 H* D, Total Protein 7.2, Albumin 3.7, Globulin 3.5, Albumin/Globulin Ratio 1.1 11/26/24 09:50: Urine Color Yellow, Urine Clarity Clear, Urine pH 6.0, Ur Specific [place] 1.015, Urine Protein 15 H, Urine Glucose (UA) 1000 H, Urine Ketones Negative, Urine Occult Blood Negative, Urine Nitrite Negative, Urine Bilirubin Negative, Urine Urobilinogen Normal, Ur Leukocyte Esterase Negative, Urine RBC 0 SEEN, Urine WBC 0 SEEN, Ur Squamous Epith Cells 0-5 SEEN, Urine Bacteria 0 SEEN, Urine Mucus 0 SEEN Micro: Microbiology 11/26/24 09:55 Mucosa - Nose SARS-CoV-2, Influenza & RSV (PCR) - Final ABG Data ABG results: ABG 11/26/24 10:34 Specimen Type JOSHUA Sample Site Not entered VBG pH 7.44 H VBG pO2 40 VBG HCO3 25 VBG Total CO2 26 VBG O2 Sat (Calc) 77 H VBG Base Excess 1 POC Mix VBG pCO2 Pt Tmp 37.0 L O2 Delivery Device Not entered EKG Initial EKG: Attestation: I personally reviewed and interpreted this EKG as follows: Prior EKG tracings: available for review EKG Rhythm Intrepretation: Sinus Rhythm (LVH) Imaging Radiology Impression Brain CT 11/26/24 09:38 IMPRESSION: There is low-density in the deep white matter in the right and left, likely chronic ischemic change, similar to the prior. There is a 1.5 cm mucous retention cyst in the left maxillary sinus, unchanged. There is fluid density in a portion of the left mastoid air cells, similar to the prior. There is no visible acute traumatic injury. Reading [facility] Cervical Spine CT 11/26/24 09:38 IMPRESSION: DEGENERATIVE CHANGES OF THE CERVICAL SPINE. NO EVIDENCE OF SIGNIFICANT OSSEOUS CENTRAL CANAL OR NEURAL FORAMINAL STENOSIS. Reading Location: [id number] Chest X-Ray 11/26/24 09:38 IMPRESSION: Examination limited by hypoinflation, as well as extensive patient motion, particularly on both lateral views. No gross acute pneumonic process is noted. Probable chronic lung changes. No pleural effusion or pneumothorax is seen. The cardiomediastinal silhouette is stable, without evidence of cardiomegaly. Generalized osteopenia is present. Mild thoracic spine degenerative changes are seen, along with DISH. No acute osseous process is identified. [facility] Pelvis X-Ray 11/26/24 09:38 IMPRESSION: Degenerative changes are again seen of the visualized lower lumbar spine. Sacroiliac joints appear symmetric and within the normal range for age. Mild asymmetric right hip joint degenerative changes are seen, with mild superolateral joint narrowing. No evidence of femoral head osteonecrosis. No acute fracture or dislocation is seen. If clinical concern persists, short-term follow-up imaging may be obtained to rule out a currently occult fracture. Reading Location: [facility] Assessment & Plan Assessment/Plan (1) Sepsis: PLAN: Present on arrival. qSOFA of 2 with hypertension and tachypnea. Secondary to right lower extremity cellulitis. Patient did not receive 30 cc/kg of IV fluid given his history of heart failure and concern for worsening respiratory distress given large quantity of fluid the patient would require. Complicated by the fact the patient does take steroids chronically for his pulmonary fibrosis. Most recently has been weaned down to 15 mg daily of prednisone. May have a component of adrenal insufficiency in light of the acute infection so patient will receive a one-time dose of hydrocortisone 100 mg today and then will start prednisone 40 mg daily starting on the and then would anticipate taper down to 15 mg. (2) Cellulitis: PLAN: Right lower extremity in the groin. Adjacent to the scrotum but no evidence of any Jesús's gangrene. Vancomycin and pip-tazo (3) Debility: PLAN: Patient is a wheelchair-bound for trips such as to the doctor's office. Does able to go to his own bathroom however. But given the relatively limited performance status, will consult PT OT evaluate and treat to see, with when the patient is ready for discharge if he would be stable for home or if you may require additional therapy resources. PLAN: Plan Chronic conditions Chronic respiratory failure secondary pulmonary fibrosis: Currently stable at this time. Patient to follow-up with his shift coordinator as outpatient. Patient takes pirfenidone for his pulmonary fibrosis as a trial. Pulmonary has told the family for that medication to be held until he is discharged. Patient on steroids with prednisone. Please see above for further details. Diabetes mellitus type 2: Does use an insulin pump but not working currently will put him on 30 units of glargine twice daily plus a sliding scale insulin. Check an A1c. Continue with empagliflozin HFpEF. Appears compensated at this time. Hold furosemide given the sepsis at this time. Hypertension: Meds with hold parameters but will hold lisinopril and furosemide for now. Obesity class III: Complicates care and recovery BPH: Continue tamsulosin History of CVA: Continue with aspirin and ticagrelor. In the patient is already on apixaban as well, will change his aspirin from 3 25-81 daily. VTE prophylaxis: Not indicated as patient is already on apixaban CODE STATUS: Addressed with patient. Initially patient stated that he would want to have CPR but would not want to be put on ventilator. When I discussed with he and his family that I would recommend he either be full code or DNR Comfort Care arrest no intubation. He chose the latter. Patient advised as well as his family that he could change his mind anytime just inform us if he does so. Charges/Coding Visit Charges Inpatient E&M: 65156 Init Hosp L3
[2024-11-26 12:34] LABS: Troponin T High Sens 2 HR 52 ng/L (<=22)
--- NOTE | 2024-11-26 12:52 | CASEMGMT ---
Care Management Face to Face with patient for initial transition planning/care coordination assessment in the ED.? This inspector automatic typewriter introduced self and role at [facility]. Patient alert and oriented. Patient willing to participate in assessment and is able to answer all questions appropriately.? Care providers, pharmacy, and demographics verified. Admitting Diagnosis: ?Sepsis Other diagnosis history: ?DM2, renal insufficiency, ?CHF, KIANNA, CKD, hypertension PCP: ?[facility] Specialists: ?Julio Rodriguez Baddour, Mat[place]; pulmonology, Preferred Pharmacy: [facility] Insurance: ?MMO Prescription Benefit: ?yes Living Will/HPOA: ?on file with [facility] LNOK: Living Arrangements: ?lives with in ranch? home, requires some assistance with ADLs and full assistance with IADLs.? and daughter provide support Transportation: ? and daughter DME: ?O2 concentrator and portable with [employer]. Patient on 4L when sitting, 8L when active.? Has life recliner, adjustable bed, walker, cane, rollator, blood pressure cuff, pulse ox, bed side commode, shower bench, Dexcom, insulin pump. HHC: none SNF/Rehab: ?none Community Resources: ?has appointment with Palliative Care Dec 01. Behavioral Health History: ?anxiety and depression.? Patient on Cymbalta and Buspar.? Patient goals: Patient wishes to discharge home, denies need for home health care at this time. Patient denies any further needs or concerns at this time. Disposition Plan: admission to acute; RN CM/SW to follow for discharge planning needs that may arise. Maricel Chopra, FORESTRY BIOLOGY SPECIALIST, SOFTWARE TEST AND VALIDATION ENGINEER
--- NOTE | 2024-11-26 13:42 | PCM.RX.CS ---
Consult Antibiotic Management Pharmacy has been consulted to manage selected antibiotic: Vancomycin Type of Intervention Type of Consult: New start Suspected Infection Suspected Infection: Skin/Soft tissue Prior Doses of Antibiotics Prior Doses of Antibiotics Received/Current Regimen: Vancomycin 2000 mg IV x 1 given 11/26/24 @ 1210 Labs Labs: Sodium 135 mmol/L (133-145) 11/26/24 09:40 Potassium 3.8 mmol/L (3.3-5.1) 11/26/24 09:40 Chloride 96 mmol/L (98-108) L 11/26/24 09:40 Carbon Dioxide 23.3 mmol/L (21.0-32.0) 11/26/24 09:40 Anion Gap 15 (5-15) 11/26/24 09:40 BUN 42 mg/dL (4-19) H 11/26/24 09:40 Creatinine 2.06 mg/dL (0.70-1.20) H 11/26/24 09:40 Est GFR (MDRD) Non-Af 36 (>60) L 11/26/24 09:40 BUN/Creatinine Ratio 20.6 RATIO (10-20) H 11/26/24 09:40 Glucose 336 mg/dL (70-99) H 11/26/24 09:40 Microbiology Microbiology: Microbiology 11/26/24 09:55 Mucosa - Nose SARS-CoV-2, Influenza & RSV (PCR) - Final Dosing Weight Weight used for dosin kg Estimated Creatinine Clearance Estimated Creatinine Clearance: ~ 54 Goal Trough Goal Trough: 15-20 mcg/mL Pharmacy Plan for Drug Dosing Pharmacy Plan for Drug Dosing: Vancomycin 2000 mg IV x 1 followed by 1250 mg Q12H Pharmacy Service will continue to monitor and adjust dosing as required. Follow-Up Labs Follow-Up Labs: Trough: Vancomycin Date/Time Labs Ordered Labs to be done on [date and time ordered]: 11/27/24 @ 0448
[2024-11-26 17:26] LABS: Troponin T High Sens 4 HR 51 ng/L (<=22)
[2024-11-26] MEDS: Piperacil/Tazobactam 3.375 GM in 0.9% Normal Saline (50mL MB+) 50 ML IV (22:06)
[2024-11-26] MEDS: Insulin Glargine-YFGN 100 UNIT/ML Pen 30 UNIT SC (22:22)
[2024-11-26] MEDS: TICAGRELOR 90 MG TABLET PO (22:27)
[2024-11-26] MEDS: APIXABAN 5 MG TABLET PO (22:27)
[2024-11-27] VITALS (8 sets, daily range): BP systolic 102–153; BP diastolic 55–81; PULSE 73–93; RESP 16–18; TEMP 36.6–36.7; O2SAT 98–100
[2024-11-27 05:55] LABS: Hematocrit 28.5 % (40-54); Hemoglobin 8.9 g/dL (13.0-16.5); Immature Granulocytes Count 0.100 X10^3/uL (0.0-0.0); Mean Corp Hgb Conc 31.2 g/dL (32-36); Mean Corpuscular Volume 77.9 fL (80-94); Mean Platelet Vol. 10.0 fl (6.2-12.0); NRBC Flagged by Analyzer 0 % (0-5); Platelet Count 191 K/mm3 (150-450); RBC Distribution Width CV 18.6 % (11.6-14.6); RBC Distribution Width SD 51.8 fl (35.1-43.9); Red Blood Count 3.66 M/mm3 (4.6-6.2); White Blood Count 12.6 K/mm3 (4.4-11.0)
[2024-11-27] MEDS: Piperacil/Tazobactam 3.375 GM in 0.9% Normal Saline (50mL MB+) 50 ML IV ×3 (05:55→21:19)
[2024-11-27 06:31] LABS: Anion Gap 11 (5-15); BUN 29 mg/dL (4-19); BUN/Creat Ratio 21.5 RATIO (10-20); Calcium,Total 9.0 mg/dL (7.6-11.0); Carbon Dioxide 22.2 mmol/L (21.0-32.0); Chloride 104 mmol/L (98-108); Estimated Creatinine Clearance 81.35 ml/min (50-250); Glucose 203 mg/dL (70-99); Potassium 3.8 mmol/L (3.3-5.1)
--- NOTE | 2024-11-27 08:23 | PCM.PN.HOSP ---
Reason for Visit Chief Complaint: Weakness Subjective Subjective Still with right leg pain. Objective Data Objective Data Vital Signs: Vital Signs Temp Pulse Resp BP Pulse Ox O2 Del Method O2 Flow Rate 36.6 C 93 18 135/65 H 98 Nasal Cannula 4 11/27/24 08:09 11/27/24 08:09 11/27/24 08:13 11/27/24 08:09 11/27/24 08:09 11/27/24 08:13 11/27/24 08:13 Oxygen Flow Rate (L/min) 4 Oxygen Delivery Method Nasal Cannula Weight: 147.9 kg Body Mass Index (BMI) 48.1 Intake & Output: Intake and Output for Last 24 Hours 11/25/24 11/26/24 11/27/24 23:59 23:59 23:59 Intake Total 2240 / 2240 325 / 325 Output Total 1100 / 1100 Balance 2240 / 1640 -775 / -775 Lab / Micro Data 11/27/24 05:23 11/27/24 05:23 Labs: Laboratory Results - last 24 hr 11/26/24 09:40: WBC 18.7 H, RBC 4.14 L, Hgb 10.0 L, Hct 32.0 L, MCV 77.3 L, MCH 24.2 L, MCHC 31.3 L, RDW Std Deviation 51.3 H, RDW Coeff of Gavi 18.7 H, Plt Count 246, MPV 10.3, Immature Gran % (Auto) 1.100 H, Neut % (Auto) 76.5 H, Lymph % (Auto) 8.9 L, [place] % (Auto) 12.8 H, Eos % (Auto) 0.4, Baso % (Auto) 0.3, Absolute Neuts (auto) 14.3 H, Absolute Lymphs (auto) 1.67, Nucleated RBC % 0, Platelet Estimate ADEQUATE, Ovalocytes 1+, Sodium 135, Potassium 3.8, Chloride 96 L, Carbon Dioxide 23.3, Anion Gap 15, BUN 42 H, Creatinine 2.06 H, Estim Creat Clear Calc 53.51, Est GFR (MDRD) Non-Af 36 L, BUN/Creatinine Ratio 20.6 H, Glucose 336 H, Lactic Acid 1.8, Calcium 9.1, Total Bilirubin 0.71, AST 13, ALT 18, Alkaline Phosphatase 58, Troponin T High Sens 59 H* D, Total Protein 7.2, Albumin 3.7, Globulin 3.5, Albumin/Globulin Ratio 1.1 11/26/24 09:50: Urine Color Yellow, Urine Clarity Clear, Urine pH 6.0, Ur Specific [place] 1.015, Urine Protein 15 H, Urine Glucose (UA) 1000 H, Urine Ketones Negative, Urine Occult Blood Negative, Urine Nitrite Negative, Urine Bilirubin Negative, Urine Urobilinogen Normal, Ur Leukocyte Esterase Negative, Urine RBC 0 SEEN, Urine WBC 0 SEEN, Ur Squamous Epith Cells 0-5 SEEN, Urine Bacteria 0 SEEN, Urine Mucus 0 SEEN 11/26/24 12:01: Troponin T Hi Sens 2 Hr 52 H 11/26/24 16:35: Lactic Acid < 1.0 11/26/24 16:49: Troponin T Hi Sens 4Hr 51 H 11/26/24 16:53: POC Glucose 384 H 11/26/24 22:21: POC Glucose 467 H* 11/27/24 05:23: WBC 12.6 H, RBC 3.66 L, Hgb 8.9 L, Hct 28.5 L, MCV 77.9 L, MCH 24.3 L, MCHC 31.2 L, RDW Std Deviation 51.8 H, RDW Coeff of Gavi 18.6 H, Plt Count 191, MPV 10.0, Immature Gran % (Auto) 0.800, Neut % (Auto) 74.4 H, Lymph % (Auto) 13.0 L, [place] % (Auto) 10.3 H, Eos % (Auto) 1.2, Baso % (Auto) 0.3, Absolute Neuts (auto) 9.4 H, Absolute Lymphs (auto) 1.63, Nucleated RBC % 0, Sodium 137, Potassium 3.8, Chloride 104, Carbon Dioxide 22.2, Anion Gap 11, BUN 29 H, Creatinine 1.37 H, Estim Creat Clear Calc 81.35, Est GFR (MDRD) Non-Af 59 L, BUN/Creatinine Ratio 21.5 H, Glucose 203 H, Hemoglobin A1c 9.6 H, Calcium 9.0 11/27/24 06:03: POC Glucose 181 H Micro: Microbiology 11/26/24 09:55 Mucosa - Nose SARS-CoV-2, Influenza & RSV (PCR) - Final ABG Data ABG results: ABG 11/26/24 10:34 Specimen Type JOSHUA Sample Site Not entered VBG pH 7.44 H VBG pO2 40 VBG HCO3 25 VBG Total CO2 26 VBG O2 Sat (Calc) 77 H VBG Base Excess 1 POC Mix VBG pCO2 Pt Tmp 37.0 L O2 Delivery Device Not entered Radiography Diagnostic Testing: Radiology Impression Brain CT 11/26/24 09:38 IMPRESSION: There is low-density in the deep white matter in the right and left, likely chronic ischemic change, similar to the prior. There is a 1.5 cm mucous retention cyst in the left maxillary sinus, unchanged. There is fluid density in a portion of the left mastoid air cells, similar to the prior. There is no visible acute traumatic injury. [facility] Cervical Spine CT 11/26/24 09:38 IMPRESSION: DEGENERATIVE CHANGES OF THE CERVICAL SPINE. NO EVIDENCE OF SIGNIFICANT OSSEOUS CENTRAL CANAL OR NEURAL FORAMINAL STENOSIS. Reading Location: [id number] Chest X-Ray 11/26/24 09:38 IMPRESSION: Examination limited by hypoinflation, as well as extensive patient motion, particularly on both lateral views. No gross acute pneumonic process is noted. Probable chronic lung changes. No pleural effusion or pneumothorax is seen. The cardiomediastinal silhouette is stable, without evidence of cardiomegaly. Generalized osteopenia is present. Mild thoracic spine degenerative changes are seen, along with DISH. No acute osseous process is identified. Reading Location: [facility] Pelvis X-Ray 11/26/24 09:38 IMPRESSION: Degenerative changes are again seen of the visualized lower lumbar spine. Sacroiliac joints appear symmetric and within the normal range for age. Mild asymmetric right hip joint degenerative changes are seen, with mild superolateral joint narrowing. No evidence of femoral head osteonecrosis. No acute fracture or dislocation is seen. If clinical concern persists, short-term follow-up imaging may be obtained to rule out a currently occult fracture. Reading Location: [facility] Physical Exam Const alert and no apparent distress Constitutional Narrative: in bed, on oxygen. no respiratory distress. no conversational dyspnea. HEENT head/scalp atraumatic and moist oral mucous membranes Resp normal respiratory effort and no retractions Extremity General Extremity: edema bilateral lower extremity Skin Skin Narrative: Erythema in the right groin shows improved erythema overall. Patient does have induration more posteriorly and medially. The area that was bleeding has stopped but it is indurated and tender palpation but no fluctuance appreciated. Neuro Sensorium / Orientation: awake and alert Psych affect normal Assessment & Plan Assessment/Plan (1) Sepsis: PLAN: Clinically improved. Blood pressure stable. Present on arrival. qSOFA of 2 with hypertension and tachypnea. Secondary to right lower extremity cellulitis. Patient did not receive 30 cc/kg of IV fluid given his history of heart failure and concern for worsening respiratory distress given large quantity of fluid the patient would require. Complicated by the fact the patient does take steroids chronically for his pulmonary fibrosis. Most recently has been weaned down to 15 mg daily of prednisone. May have a component of adrenal insufficiency in light of the acute infection so patient will receive a one-time dose of hydrocortisone 100 mg today and then will start prednisone 40 mg daily starting on the and then would anticipate taper down to 15 mg. Urine culture showing beta Streptococcus but low CFU's. Likely not a true infection. (2) Cellulitis: PLAN: Improving right lower extremity in the groin. Adjacent to the scrotum but no evidence of any Jesús's gangrene. Vancomycin and pip-tazo (3) Debility: PLAN: Patient is a wheelchair-bound for trips such as to the doctor's office. Does able to go to his own bathroom however. But given the relatively limited performance status, will consult PT OT evaluate and treat to see, with when the patient is ready for discharge if he would be stable for home or if you may require additional therapy resources. PLAN: Plan Chronic conditions Chronic respiratory failure secondary pulmonary fibrosis: Currently stable at this time. 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 Patient takes pirfenidone for his pulmonary fibrosis as a trial. Pulmonary has told the family for that medication to be held until he is discharged. Patient on steroids with prednisone. Please see above for further details. Diabetes mellitus type 2: Does use an insulin pump but not working currently will put him on 30 units of glargine twice daily plus a sliding scale insulin. Check an A1c. Continue with empagliflozin HFpEF. Appears compensated at this time. Hold furosemide given the sepsis at this time. Hypertension: Meds with hold parameters but will hold lisinopril and furosemide for now. Obesity class III: Complicates care and recovery BPH: Continue tamsulosin History of CVA: Continue with aspirin and ticagrelor. In the patient is already on apixaban as well, will change his aspirin from 3 25-81 daily. VTE prophylaxis: Not indicated as patient is already on apixaban CODE STATUS: Addressed with patient. Initially patient stated that he would want to have CPR but would not want to be put on ventilator. When I discussed with he and his family that I would recommend he either be full code or DNR Comfort Care arrest no intubation. He chose the latter. Patient advised as well as his family that he could change his mind anytime just inform us if he does so. Disposition: To be determined. Charges/Coding Visit Charges Inpatient E&M: 93463 Subs Hosp L2
[2024-11-27] MEDS: TICAGRELOR 90 MG TABLET PO ×2 (10:10→21:19)
[2024-11-27] MEDS: APIXABAN 5 MG TABLET PO ×2 (10:10→21:19)
[2024-11-27] MEDS: Metoprolol(XL)Succ 100 MG Tablet PO (10:12)
--- NOTE | 2024-11-27 11:28 | WOUNDNOTE ---
Therapy in with patient at this time. did not get to assess thigh boil.
[2024-11-27] MEDS: Insulin Glargine-YFGN 100 UNIT/ML Pen 30 UNIT SC ×2 (12:23→21:20)
[2024-11-27] MEDS: Vancomycin HCl 1,250 MG in 0.9% Normal Saline (250mL Bag) 250 ML 167 MG IV ×2 (12:57)
[2024-11-27] MEDS: 0.9% Saline Lock 10 ML Syringe IV (21:19)
[2024-11-28 00:35] LABS: Vancomycin, Trough Level 16.7 ug/mL (5.0-15.0)
--- NOTE | 2024-11-28 00:49 | PCM.RX.CS ---
Consult Antibiotic Management Pharmacy has been consulted to manage selected antibiotic: Vancomycin Type of Intervention Type of Consult: Follow-up Suspected Infection Suspected Infection: Skin/Soft tissue Labs Labs: Sodium 137 mmol/L (133-145) 11/27/24 05:23 Potassium 3.8 mmol/L (3.3-5.1) 11/27/24 05:23 Chloride 104 mmol/L (98-108) 11/27/24 05:23 Carbon Dioxide 22.2 mmol/L (21.0-32.0) 11/27/24 05:23 Anion Gap 11 (5-15) 11/27/24 05:23 BUN 29 mg/dL (4-19) H 11/27/24 05:23 Creatinine 1.37 mg/dL (0.70-1.20) H 11/27/24 05:23 Est GFR (MDRD) Non-Af 59 (>60) L 11/27/24 05:23 BUN/Creatinine Ratio 21.5 RATIO (10-20) H 11/27/24 05:23 Glucose 203 mg/dL (70-99) H 11/27/24 05:23 Vancomycin Trough 16.7 ug/mL (5.0-15.0) H 11/27/24 23:36 Microbiology Microbiology: Microbiology 11/26/24 09:50 Urine, Catheterized Urine Culture - Preliminary Beta streptococcus 11/26/24 09:55 Mucosa - Nose SARS-CoV-2, Influenza & RSV (PCR) - Final Dosing Weight Weight used for dosin kg Estimated Creatinine Clearance Estimated Creatinine Clearance: 81 Goal Trough Goal Trough: 15-20 mcg/mL Pharmacy Plan for Drug Dosing Pharmacy Plan for Drug Dosing: Vancomycin trough level of 16.7, drawn 10.5hrs post-dose, was within the target range of 15-20. Will continue dosing at 1250mg q12h, and will draw another trough level in two days. Pharmacy Service will continue to monitor and adjust dosing as required. Follow-Up Labs Follow-Up Labs: Trough: Vancomycin Date/Time Labs Ordered Labs to be done on [date and time ordered]: 11/29/24 @5851
[2024-11-28] MEDS: Vancomycin HCl 1,250 MG in 0.9% Normal Saline (250mL Bag) 250 ML 167 MG IV ×2 (01:13→11:33)
[2024-11-28 02:00] VITALS: BP 106/50; PULSE 80; RESP 18; TEMP 36.6; O2SAT 99
[2024-11-28] MEDS: Piperacil/Tazobactam 3.375 GM in 0.9% Normal Saline (50mL MB+) 50 ML IV (05:53)
[2024-11-28 08:50] VITALS: BP 162/76; PULSE 97; RESP 18; TEMP 36.4; O2SAT 94
[2024-11-28 08:58] VITALS: BP 162/76; PULSE 97
[2024-11-28] MEDS: TICAGRELOR 90 MG TABLET PO (08:58)
[2024-11-28] MEDS: Metoprolol(XL)Succ 100 MG Tablet PO (08:58)
[2024-11-28] MEDS: APIXABAN 5 MG TABLET PO (09:00)
[2024-11-28] MEDS: Insulin Glargine-YFGN 100 UNIT/ML Pen 30 UNIT SC (09:03)
--- NOTE | 2024-11-28 09:43 | PN.HOSP_ITS ---
Reason for Visit Chief Complaint: Weakness Subjective Subjective Feeling well. Ready to go home. Objective Data Objective Data Vital Signs: Vital Signs Temp Pulse Resp BP Pulse Ox O2 Del Method O2 Flow Rate 36.4 C L 97 18 162/76 H 94 Nasal Cannula 8 11/28/24 08:50 11/28/24 08:58 11/28/24 08:50 11/28/24 08:58 11/28/24 08:50 11/28/24 08:50 11/28/24 08:50 Oxygen Flow Rate (L/min) 8 Oxygen Delivery Method Nasal Cannula Weight: 147.9 kg Body Mass Index (BMI) 48.1 Intake & Output: Intake and Output for Last 24 Hours 11/26/24 11/27/24 11/28/24 23:59 23:59 23:59 Intake Total 2240 / 2240 700 / 700 325 / 325 Output Total 1875 / 2425 1250 / 1250 Balance 2240 / 1640 -1175 / -1725 -925 / -925 Lab / Micro Data 11/28/24 10:26 11/28/24 10:26 Labs: Laboratory Results - last 24 hr 11/27/24 11:13: POC Glucose 241 H 11/27/24 16:29: POC Glucose 436 H 11/27/24 21:17: POC Glucose 397 H 11/27/24 23:36: Vancomycin Trough 16.7 H 11/28/24 05:59: POC Glucose 228 H Micro: Microbiology 11/26/24 09:50 Urine, Catheterized Urine Culture - Preliminary Streptococcus agalactiae (B) Mixed Gram Positive Organisms 11/26/24 09:55 Mucosa - Nose SARS-CoV-2, Influenza & RSV (PCR) - Final Physical Exam Const alert and no apparent distress Constitutional Narrative: Lying in bed. On oxygen. No respiratory distress. No conversational dyspnea. Resp normal respiratory effort and no retractions Skin Skin Narrative: Redness greatly improved. Patient had the open area previously that with no further purulence. Assessment & Plan Assessment/Plan (1) Sepsis: PLAN: Clinically improved. Blood pressure stable. Present on arrival. qSOFA of 2 with hypertension and tachypnea. Secondary to right lower extremity cellulitis. Patient did not receive 30 cc/kg of IV fluid given his history of heart failure and concern for worsening respiratory distress given large quantity of fluid the patient would require. Complicated by the fact the patient does take steroids chronically for his pulmonary fibrosis. Most recently has been weaned down to 15 mg daily of prednisone. May have a component of adrenal insufficiency in light of the acute infection so patient will receive a one-time dose of hydrocortisone 100 mg today and then will start prednisone 40 mg daily starting on the and then would anticipate taper down to 15 mg. Urine culture showing beta Streptococcus but low CFU's. Likely not a true infection. (2) Cellulitis: PLAN: Improving right lower extremity in the groin. Adjacent to the scrotum but no evidence of any Jesús's gangrene. Vancomycin and pip-tazo while he is inpatient and has greatly improved. Will discharge the patient with doxycycline and cephalexin. (3) Debility: PLAN: Patient is a wheelchair-bound for trips such as to the doctor's office. Does able to go to his own bathroom however. But given the relatively limited performance status, will consult PT OT evaluate and treat to see, with when the patient is ready for discharge if he would be stable for home or if you may require additional therapy resources. PLAN: Plan Chronic conditions * Chronic respiratory failure secondary pulmonary fibrosis: Currently stable at this time. 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 Patient takes pirfenidone for his pulmonary fibrosis as a trial. Pulmonary has told the family for that medication to be held until he is discharged. Patient on steroids with prednisone. Please see above for further details. * Diabetes mellitus type 2: Does use an insulin pump but not working currently will put him on 30 units of glargine twice daily plus a sliding scale insulin. Check an A1c. Continue with empagliflozin * HFpEF. Appears compensated at this time. Hold furosemide given the sepsis at this time. * Hypertension: Meds with hold parameters but will hold lisinopril and furosemide for now. * Obesity class III: Complicates care and recovery * BPH: Continue tamsulosin * History of CVA: Continue with aspirin and ticagrelor. In the patient is already on apixaban as well, will change his aspirin from 3 25-81 daily. VTE prophylaxis: Not indicated as patient is already on apixaban CODE STATUS: Addressed with patient. Initially patient stated that he would want to have CPR but would not want to be put on ventilator. When I discussed with he and his family that I would recommend he either be full code or DNR Comfort Care arrest no intubation. He chose the latter. Patient advised as well as his family that he could change his mind anytime just inform us if he does so. Disposition: To home today.
[2024-11-28 10:41] LABS: Hematocrit 27.4 % (40-54); Hemoglobin 8.6 g/dL (13.0-16.5); Immature Granulocytes Count 0.100 X10^3/uL (0.0-0.0); Mean Corp Hgb Conc 31.4 g/dL (32-36); Mean Corpuscular Volume 77.4 fL (80-94); Mean Platelet Vol. 10.1 fl (6.2-12.0); NRBC Flagged by Analyzer 0 % (0-5); Platelet Count 195 K/mm3 (150-450); RBC Distribution Width CV 17.9 % (11.6-14.6); RBC Distribution Width SD 51.1 fl (35.1-43.9); Red Blood Count 3.54 M/mm3 (4.6-6.2); White Blood Count 11.5 K/mm3 (4.4-11.0)
[2024-11-28 11:11] LABS: Anion Gap 12 (5-15); BUN 26 mg/dL (4-19); BUN/Creat Ratio 21.1 RATIO (10-20); Calcium,Total 9.0 mg/dL (7.6-11.0); Carbon Dioxide 20.5 mmol/L (21.0-32.0); Chloride 102 mmol/L (98-108); Estimated Creatinine Clearance 90.61 ml/min (50-250); Glucose 242 mg/dL (70-99); Potassium 3.8 mmol/L (3.3-5.1)
--- NOTE | 2024-11-28 12:50 | PCM.DC.SUM ---
Providers Date of Admission: 11/26/24 Primary Care Physician: Brandt Winter MD Consultations 11/26/24 13:21 Consult: Onc/Wound/ball fringe machine operator Routine Comment: 11/26/24 13:34 Consult: Onc/Wound/ball fringe machine operator Routine Comment: Reason for Consult:: boil oped draining Reason For Visit: SEPSIS Diagnosis Discharge Diagnosis (1) Sepsis: Status: Acute Code(s): A41.9 - Sepsis, unspecified organism Plan: Clinically improved. Blood pressure stable. Present on arrival. qSOFA of 2 with hypertension and tachypnea. Secondary to right lower extremity cellulitis. Patient did not receive 30 cc/kg of IV fluid given his history of heart failure and concern for worsening respiratory distress given large quantity of fluid the patient would require. Complicated by the fact the patient does take steroids chronically for his pulmonary fibrosis. Most recently has been weaned down to 15 mg daily of prednisone. May have a component of adrenal insufficiency in light of the acute infection so patient will receive a one-time dose of hydrocortisone 100 mg today and then will start prednisone 40 mg daily starting on the and then would anticipate taper down to 15 mg. Urine culture showing beta Streptococcus but low CFU's. Likely not a true infection. (2) Cellulitis: Status: Acute Code(s): L03.90 - Cellulitis, unspecified Plan: Improving right lower extremity in the groin. Adjacent to the scrotum but no evidence of any Jesús's gangrene. Vancomycin and pip-tazo while he is inpatient and has greatly improved. Will discharge the patient with doxycycline and cephalexin. (3) Debility: Status: Acute Code(s): R53.81 - Other malaise Plan: Patient is a wheelchair-bound for trips such as to the doctor's office. Does able to go to his own bathroom however. But given the relatively limited performance status, will consult PT OT evaluate and treat to see, with when the patient is ready for discharge if he would be stable for home or if you may require additional therapy resources. Plan Chronic conditions Chronic respiratory failure secondary pulmonary fibrosis: Currently stable at this time. Patient to follow-up with his business office assistant as outpatient. Patient takes pirfenidone for his pulmonary fibrosis as a trial. Pulmonary has told the family for that medication to be held until he is discharged. Patient on steroids with prednisone. Please see above for further details. Diabetes mellitus type 2: Does use an insulin pump but not working currently will put him on 30 units of glargine twice daily plus a sliding scale insulin. Check an A1c. Continue with empagliflozin HFpEF. Appears compensated at this time. Hold furosemide given the sepsis at this time. Hypertension: Meds with hold parameters but will hold lisinopril and furosemide for now. Obesity class III: Complicates care and recovery BPH: Continue tamsulosin History of CVA: Continue with aspirin and ticagrelor. In the patient is already on apixaban as well, will change his aspirin from 3 25-81 daily. VTE prophylaxis: Not indicated as patient is already on apixaban CODE STATUS: Addressed with patient. Initially patient stated that he would want to have CPR but would not want to be put on ventilator. When I discussed with he and his family that I would recommend he either be full code or DNR Comfort Care arrest no intubation. He chose the latter. Patient advised as well as his family that he could change his mind anytime just inform us if he does so. Disposition: To home today. Medications at Discharge Home Medications tamsulosin 0.4 mg capsule 0.4 mg PO DAILY prostate 09/08/15 duloxetine 60 mg capsule,delayed release (Cymbalta) 60 mg PO DAILY depression 04/17/18 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,television receiver analyzer,cont (Dexcom G6 Outreach Counselor) #1 ea 07/26/20 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 transmitter (Dexcom G6 Transmitter device) #1 ea 12/29/21 infusion set for insulin pump 10/08/22 insulin pump controller 10/08/22 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 sensor (Dexcom G6 Sensor device) #1 ea 02/25/23 insulin regular hum U-500 conc 500 unit/mL subcutaneous soln (Humulin R U-500 (Concentrated) Insulin) 75 unit (0.15 mL) continuous subcutaneous infusion DAILY blood sugar #20 mL 11/11/23 ferrous sulfate 325 mg (65 mg iron) tablet (Feosol) 325 mg PO DAILY anemia 03/02/24 amlodipine 5 mg tablet 5 mg PO QDAY blood pressure 03/13/24 metoprolol succinate 100 mg tablet,extended release 24 hr 100 mg PO DAILY heart #90 tabs 03/27/24 lisinopril 40 mg tablet 40 mg PO DAILY blood pressure 04/12/24 ticagrelor 90 mg tablet (Brilinta) 90 mg PO BID 05/21/24 furosemide 40 mg tablet (Lasix) 40 mg PO BID diuretic #270 tabs 06/23/24 pantoprazole 40 mg tablet,delayed release (Protonix) 40 mg PO BID acid reflux #60 tabs 07/22/24 empagliflozin 25 mg tablet (Jardiance) 25 mg PO DAILY diabetes #30 tabs 08/12/24 apixaban 5 mg tablet (Eliquis) 5 mg PO BID blood thinner #180 tabs 08/31/24 buspirone 10 mg tablet 10 mg PO BID Anxiety 09/16/24 oxycodone-acetaminophen 5 mg-325 mg tablet 1 tab PO TID PRN pain 09/16/24 prednisone 5 mg tablet See Rx Instructions PO .COMPLEX steriod 09/16/24 Held on 11/28/24. Instructions: Resume on 12/06/24. fenofibrate 54 mg tablet 134 mg PO QDAY 10/27/24 rosuvastatin 40 mg tablet 40 mg PO QDAY #30 tabs 10/27/24 albuterol sulfate 2.5 mg/3 mL (0.083 %) solution for nebulization 2.5 mg inhalation Q4H PRN shortness of breath or wheezing 11/25/24 levothyroxine 125 mcg tablet 125 mcg PO QDAY 11/25/24 pirfenidone 267 mg tablet 267 mg PO TID breathing 11/25/24 acetaminophen 500 mg tablet 1,000 mg (2 x 500 mg) PO Q8 PRN pain #0 tabs 11/28/24 aspirin 81 mg chewable tablet 81 mg PO BREAKFAST #0 tabs 11/28/24 cephalexin 500 mg capsule 500 mg PO Q8H #15 caps 11/28/24 doxycycline monohydrate 100 mg tablet 100 mg PO BID #10 tabs 11/28/24 prednisone 10 mg tablet 10 mg PO DAILY #15 tabs 11/28/24 Hospital Course Operations None Procedures None Summary of Care Provided Minutes Spent on Discharge: 35 Hospital Course: The patient presents with weakness and falls. Patient was diagnosed with sepsis and as well as right lower extremity cellulitis. Patient was hypotensive upon arrival. Patient likely has adrenal insufficiency due to chronic steroid use he takes chronically for his pulmonary fibrosis. Patient received a dose of IV hydrocortisone and has been started on higher dose of prednisone. Blood pressure has been stable. Weight / BMI Weight Weight: 147.9 kg Body Mass Index (BMI) 48.1 ABG / Lab / Microbiology Data 11/28/24 10:26 11/28/24 10:26 Laboratory: Laboratory Results - last 24 hr 11/27/24 11:13: POC Glucose 241 H 11/27/24 16:29: POC Glucose 436 H 11/27/24 21:17: POC Glucose 397 H 11/27/24 23:36: Vancomycin Trough 16.7 H 11/28/24 05:59: POC Glucose 228 H 11/28/24 10:26: WBC 11.5 H, RBC 3.54 L, Hgb 8.6 L, Hct 27.4 L, MCV 77.4 L, MCH 24.3 L, MCHC 31.4 L, RDW Std Deviation 51.1 H, RDW Coeff of Gavi 17.9 H, Plt Count 195, MPV 10.1, Immature Gran % (Auto) 0.900, Neut % (Auto) 78.0 H, Lymph % (Auto) 11.2 L, [place] % (Auto) 7.9, Eos % (Auto) 1.7, Baso % (Auto) 0.3, Absolute Neuts (auto) 8.9 H, Absolute Lymphs (auto) 1.28, Nucleated RBC % 0, Sodium 135, Potassium 3.8, Chloride 102, Carbon Dioxide 20.5 L, Anion Gap 12, BUN 26 H, Creatinine 1.23 H, Estim Creat Clear Calc 90.61, Est GFR (MDRD) Non-Af 67, BUN/Creatinine Ratio 21.1 H, Glucose 242 H, Calcium 9.0 11/28/24 11:31: POC Glucose 223 H Microbiology: Microbiology 11/26/24 09:50 Urine, Catheterized Urine Culture - Preliminary Streptococcus agalactiae (B) Mixed Gram Positive Organisms 11/26/24 09:55 Mucosa - Nose SARS-CoV-2, Influenza & RSV (PCR) - Final D/C Instructions DC O2, CPAP, BIPAP Needs Home O2 Discharge instructions: Yes Type of respiratory needs?: Oxygen Oxygen frequency: Continuous Continuous oxygen liters per minute: 4 DC home with Oxygen: Yes Home O2 MD Review: I have reviewed the oxygen testing, and the patient qualifies for home oxygen equipment and portability. The patient is mobile in the home and the community. Meaningful Use Info Meaningful Use Meaningful Use Diagnoses (Choose all that apply): None applicable Discharge Plan Admission Admit Date/Time: 11/26/24 11:54 Primary Reason for Your Visit: Cellulitis Attending Provider: Ochoa Johnson Primary Care Provider: Brandt Winter Instructions Additional Instructions / Restrictions: You had cellulitis of your right leg. Due to illness with stress in your body that cause your pressure to drop complicated by the fact that you take steroids chronically with prednisone. You been on higher dose prednisone decrease that to your baseline of 15 mg daily. Discharge Orders/Prescriptions Prescriptions: New acetaminophen 500 mg Tablet 1,000 mg PO Q8 PRN (Reason: pain) Qty: 0 0RF aspirin 81 mg Tablet,Chewable 81 mg PO BREAKFAST Qty: 0 0RF prednisone 10 mg tablet 10 mg PO DAILY Qty: 15 0RF Rx Instructions: 4 tabs for 1 day, then 3 tabs for 3 days, then 2 tabs for 3 days, then resume your normal 15mg daily dosing. doxycycline monohydrate 100 mg tablet 100 mg PO BID Qty: 10 0RF cephalexin 500 mg capsule 500 mg PO Q8H Qty: 15 0RF Continued (DME) Dexcom G6 Outreach Counselor Misc See Rx Instructions .ROUTE .MEDSUPPLY Qty: 1 0RF Rx Instructions: As directed (DME) infusion set for insulin pump Infusion Set See Rx Instructions .Route Rx Instructions: As directed (DME) insulin pump controller Misc See Rx Instructions .Route Rx Instructions: As directed amlodipine 5 mg tablet 5 mg PO QDAY oxycodone-acetaminophen 5-325 mg tablet 1 tab PO TID PRN (Reason: pain) fenofibrate 54 mg tablet 134 mg PO QDAY rosuvastatin 40 mg tablet 40 mg PO QDAY Qty: 30 11RF Brilinta 90 mg tablet 90 mg PO BID albuterol sulfate 2.5 mg /3 mL (0.083 %) solution for nebulization 2.5 mg inhalation Q4H PRN (Reason: shortness of breath or wheezing) levothyroxine 125 mcg tablet 125 mcg PO QDAY pirfenidone 267 mg tablet 267 mg PO TID tamsulosin 0.4 MG capsule 0.4 mg PO DAILY duloxetine [Cymbalta] 60 MG capsule,delayed release(DR/EC) 60 mg PO DAILY buspirone 10 mg tablet 10 mg PO BID ferrous sulfate [Feosol] 325 mg (65 mg iron) tablet 325 mg PO DAILY lisinopril 40 mg tablet 40 mg PO DAILY (DME) Dexcom G6 Transmitter Device See Rx Instructions .ROUTE .MEDSUPPLY Qty: 1 3RF Rx Instructions: As directed (DME) Dexcom G6 Sensor Device See Rx Instructions .ROUTE .MEDSUPPLY Qty: 1 6RF Rx Instructions: As directed Humulin R U-500 (Conc) Insulin 500 unit/mL solution 75 unit continuous subcutaneous infusion DAILY Qty: 20 5RF Patient Comments: INSULIN PUMP; pt. states that he does bolus with meals based on pump's suggested dose; unsure of basal rate; pump is currently broken, to bring in new wiring in AM metoprolol succinate 100 mg tablet extended release 24 hr 100 mg PO DAILY Qty: 90 3RF furosemide [Lasix] 40 mg tablet 40 mg PO BID Qty: 270 3RF Rx Instructions: Take extra 40 mg dose at 5 PM for increased leg swelling or weight gain 5 pounds in 1 week. pantoprazole [Protonix] 40 mg tablet,delayed release (DR/EC) 40 mg PO BID Qty: 60 3RF Jardiance 25 mg tablet 25 mg PO DAILY Qty: 30 5RF Eliquis 5 mg tablet 5 mg PO BID Qty: 180 3RF Held prednisone 5 mg tablet See Rx Instructions PO .COMPLEX Hold Instructions: Resume on 12/06/24. Rx Instructions: patient currently taking 15mg daily. Discontinued aspirin 325 mg tablet 325 mg PO DAILY Patient Comments: coated Referrals / Follow Up: Brandt Winter MD [Primary Care Provider] - Within 2 Weeks Disposition Disposition (needs filled in before D/C Order can be placed): Home, Self Care Charges/Coding Visit Charges Inpatient E&M: 14179 Disch Hosp >30min
[2024-11-28 13:19] VITALS: BP 162/76; PULSE 97; RESP 18; TEMP 36.4; O2SAT 94
[2024-11-28 13:55] VITALS: O2SAT 93
== END 2024-11-28 14:53 | disposition home or self-care (01) | DRG 872 ==
LOC: ED 10:30 → PCU 12:52
PROVIDERS: Emergency Provider Student in an Organized Health Care Education/Training Program; PCP Family Medicine
DX: A41.9 Sepsis, unspecified organism (principal); E27.3 Drug-induced adrenocortical insufficiency; I50.32 Chronic diastolic (congestive) heart failure; I13.0 Hypertensive heart and chronic kidney disease with heart failure and stage 1 through stage 4 chronic kidney disease, or unspecified chronic kidney disease; Z68.42 Body mass index [BMI] 45.0-49.9, adult; J96.11 Chronic respiratory failure with hypoxia; L03.115 Cellulitis of right lower limb; E11.22 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 with diabetic chronic kidney disease; I69.392 Facial weakness following cerebral infarction; D64.9 Anemia, unspecified; E03.9 Hypothyroidism, unspecified; F32.A Depression, unspecified; N18.9 Chronic kidney disease, unspecified; J84.10 Pulmonary fibrosis, unspecified; I48.0 Paroxysmal atrial fibrillation; E11.42 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 with diabetic polyneuropathy; I95.9 Hypotension, unspecified; W19.XXXA Unspecified fall, initial encounter; G47.33 Obstructive sleep apnea (adult) (pediatric); I25.10 Atherosclerotic heart disease of native coronary artery without angina pectoris; F41.9 Anxiety disorder, unspecified; K21.9 Gastro-esophageal reflux disease without esophagitis; I25.2 Old myocardial infarction; E78.00 Pure hypercholesterolemia, unspecified; Z79.4 Long term (current) use of insulin; R53.1 Weakness; E66.813 Obesity, class 3; I49.3 Ventricular premature depolarization; R53.81 Other malaise; T38.0X5A Adverse effect of glucocorticoids and synthetic analogues, initial encounter; N40.0 Benign prostatic hyperplasia without lower urinary tract symptoms; Z99.81 Dependence on supplemental oxygen; Z96.41 Presence of insulin pump (external) (internal); Z79.899 Other long term (current) drug therapy; Z79.84 Long term (current) use of oral hypoglycemic drugs; Z79.890 Hormone replacement therapy; Z79.01 Long term (current) use of anticoagulants; Z79.82 Long term (current) use of aspirin; Z79.52 Long term (current) use of systemic steroids
CPT/HCPCS: 36415; 70450; 71046; 72125; 72170; 80048; 80053; 80202; 81001; 82803; 82962; 83036; 83605; 84484; 85025; 87040; 87077; 87086; 87088; 87186; 87631; 93005; 97161; 97166; 97535; 97802; 99252; 99285; A4216; G0463

== ENCOUNTER 2024-12-10 13:18 | Outpatient (CLI) | payer OTHER, SELFPAY ==
[2024-12-10 13:27] VITALS: BP 90/54; PULSE 88; RESP 20; TEMP 35.6; O2SAT 100; BMI 45.4
[2024-12-10] MEDS: 0.9% NaCl IVPB Med Flush (100mL) 15 ML IV (13:38)
[2024-12-10] MEDS: Iron Sucrose Complex (Venofer) 100 MG in 0.9% NaCl 100 ML 420 MG IV (13:54)
[2024-12-10 14:53] VITALS: BP 113/53; PULSE 77; RESP 16; O2SAT 99
== END 2024-12-10 23:59 | disposition home or self-care (01) ==
LOC: MEDOUTP 13:18
PROVIDERS: PCP Family Medicine; Referring Provider Family Medicine; Visit Provider Family Medicine
DX: E61.1 Iron deficiency (principal)
CPT/HCPCS: 96365; J1756

== ENCOUNTER 2024-12-17 09:41 | Outpatient (RCR) | payer OTHER, SELFPAY ==
[2024-12-17 10:33] VITALS: BP 103/64; PULSE 101; RESP 18; TEMP 35.9
--- NOTE | 2024-12-17 12:16 | HP.PCM_ITS ---
History of Present Illness Date of Service: 12/17/24 Chief Complaint: Right thigh ulcer. History of abscess. History of Wound: Mr. Ga is a 59-year-old who presents to the wound center due to nonhealing right thigh ulcer. Noted a few weeks ago and per patient, started as a boil. Recently and subsequently admitted and managed for sepsis thought to be due to right lower extremity cellulitis. He states that he had the area of abscess expressed during his hospital admission. Following antibiotics, there was improvement in his overall health and he was discharged home. He has also been applying an antifungal powder to area of redness in the thigh which is chronic. He has noted improvement with this. He presents here due to non-closure of right sided thigh ulcer. History of diabetes mellitus type 2, most recent A1c was at 9.6.. Also history of idiopathic pulmonary fibrosis currently on oxygen. No history of tobacco use. Appetite is good. Feels well overall, no chills, fever or changes in bowel habit reported. [facility] Medical History (Updated 12/17/24 @ 21:[address] 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 of audiovisual librarian anticoagulation Chronic respiratory failure with hypoxia Paroxysmal atrial fibrillation Chronic respiratory failure Chronic ulcer of thigh with fat layer exposed Microalbuminuria due to type 2 diabetes mellitus Hypoxemia Rheumatoid factor positive Hyperlipidemia Elevated troponin 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 with hyperglycemia Renal insufficiency Interstitial lung disease Ischemic cerebrovascular accident (CVA) CHF (congestive heart failure) KIANNA (obstructive sleep apnea) Presence of insulin pump CKD (chronic kidney disease) Hypothyroidism Essential (primary) hypertension Diabetes Acute hypoxemic respiratory failure Chronic diastolic CHF (congestive heart failure) Obesity Exertional shortness of breath Iron deficiency anemia due to chronic blood loss Morbid obesity with BMI of 45.0-49.9, adult Atherosclerotic heart disease of [place] coronary artery without angina pectoris Mini stroke (~10/01/23) Peripheral vestibulopathy Cranial nerve disorder Polyneuropathy Wears glasses Depression Anxiety Cancer Thyroid disease Insulin dependent diabetes mellitus Arthritis History of renal disease Prostate disease Gastric reflux CPAP (continuous positive airway pressure) dependence Sleep apnea Shortness of breath on exertion History of echocardiogram History of stress test History of CHF (congestive heart failure) Cardiology follow-up encounter History of atrial fibrillation Neuropathy Multiple thyroid nodules Microalbuminuria Thyroid nodule Double vision Non-proliferative diabetic retinopathy KIANNA treated with BiPAP Vertigo Congestive heart failure (CHF) Low testosterone Carotid stenosis High cholesterol Vision loss of right eye Vision loss of left eye Anemia Non-smoker Atrial fibrillation Hypertension Polyneuropathy due to type 2 diabetes mellitus History of non-ST elevation myocardial infarction (NSTEMI) (03/28/20) TIA (transient ischemic attack) (2018) Hodgkin disease GERD (gastroesophageal reflux disease) BPH (benign prostatic hyperplasia) Anxiety and depression Morbid obesity with BMI of 45.0-49.9, adult Nephrolithiasis Diabetes mellitus, type II Home Medications ?Medication ?Instructions ?Recorded ?Last Taken ?Type tamsulosin 0.4 mg capsule 0.4 mg PO DAILY prostate 12/1509/26/24 History duloxetine 60 mg capsule,delayed 60 mg PO DAILY depres wanda 04/17/18 09/26/24 History release (Cymbalta) 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,brush maker machine,cont #1 ea 07/26/20 Unknown Rx (Dexcom G6 Rail Car Painter/Sandblaster) 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 transmitter (Dexcom #1 ea 12/29/21 Unkno wn Rx G6 Transmitter device) infusion set for insulin pump 10/08/22 Unknown Histor y insulin pump controller 10/08/22 Unknown History 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 sensor (Dexcom G6 #1 ea 02/25/23 Unknown Rx Sensor device) insulin regular hum U-500 conc 500 75 unit (0.15 mL) c ontinuous 11/11/23 09/26/24 Rx unit/mL subcutaneous soln (Humulin subcutaneous infusi on DAILY blood R U-500 (Concentrated) Insulin) sugar #20 mL ferrous sulfate 325 mg (65 mg 325 mg PO DAILY anemia 1 05/03/23 09/26/24 History iron) tablet (Feosol) Held on 12/17/24. Instructions: RECIEVING INFUSIONS metoprolol succinate 100 mg 100 mg PO DAILY heart #90 tabs 03/27/24 09/26/24 Rx tablet,extended release 24 hr lisinopril 40 mg tablet 40 mg PO DAILY blood pressur e 04/12/24 09/26/24 History pantoprazole 40 mg tablet,delayed 40 mg PO BID acid re flux #60 tabs 07/22/24 09/26/24 Rx release (Protonix) empagliflozin 25 mg tablet 25 mg PO DAILY diabetes #30 tabs 08/12/24 09/26/24 Rx (Jardiance) apixaban 5 mg tablet (Eliquis) 5 mg PO BID blood thinn er #180 tabs 08/31/24 09/26/24 Rx buspirone 10 mg tablet 10 mg PO BID Anxiety 5 09/26/24 History fenofibrate 54 mg tablet 134 mg PO QDAY 10/27/24 Unkn own History albuterol sulfate 2.5 mg/3 mL 2.5 mg inhalation Q4H MI N 11/25/24 Unknown History (0.083 %) solution for nebulization shortness of breat h or wheezing levothyroxine 125 mcg tablet 125 mcg PO QDAY 11/25/24 Unknown History pirfenidone 267 mg tablet 267 mg PO TID breathing 10/31 10/23 Unknown History acetaminophen 500 mg tablet 1,000 mg (2 x 500 mg) PO Q
--- NOTE | 2024-12-17 12:16 | PCM.WC.HP ---
History of Present Illness Date of Service: 12/17/24 Chief Complaint: Right thigh ulcer. History of abscess. History of Wound: Mr. Ga is a 59-year-old who presents to the wound center due to nonhealing right thigh ulcer. Noted a few weeks ago and per patient, started as a boil. Recently and subsequently admitted and managed for sepsis thought to be due to right lower extremity cellulitis. He states that he had the area of abscess expressed during his hospital admission. Following antibiotics, there was improvement in his overall health and he was discharged home. He has also been applying an antifungal powder to area of redness in the thigh which is chronic. He has noted improvement with this. He presents here due to non-closure of right sided thigh ulcer. History of diabetes mellitus type 2, most recent A1c was at 9.6.. Also history of idiopathic pulmonary fibrosis currently on oxygen. No history of tobacco use. Appetite is good. Feels well overall, no chills, fever or changes in bowel habit reported. [facility] Medical History (Updated 12/17/24 @ 21:[address] 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 of ocean transportation intermediary anticoagulation Chronic respiratory failure with hypoxia Paroxysmal atrial fibrillation Chronic respiratory failure Chronic ulcer of thigh with fat layer exposed Microalbuminuria due to type 2 diabetes mellitus Hypoxemia Rheumatoid factor positive Hyperlipidemia Elevated troponin 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 with hyperglycemia Renal insufficiency Interstitial lung disease Ischemic cerebrovascular accident (CVA) CHF (congestive heart failure) KIANNA (obstructive sleep apnea) Presence of insulin pump CKD (chronic kidney disease) Hypothyroidism Essential (primary) hypertension Diabetes Acute hypoxemic respiratory failure Chronic diastolic CHF (congestive heart failure) Obesity Exertional shortness of breath Iron deficiency anemia due to chronic blood loss Morbid obesity with BMI of 45.0-49.9, adult Atherosclerotic heart disease of [place] coronary artery without angina pectoris Mini stroke (~10/01/23) Peripheral vestibulopathy Cranial nerve disorder Polyneuropathy Wears glasses Depression Anxiety Cancer Thyroid disease Insulin dependent diabetes mellitus Arthritis History of renal disease Prostate disease Gastric reflux CPAP (continuous positive airway pressure) dependence Sleep apnea Shortness of breath on exertion History of echocardiogram History of stress test History of CHF (congestive heart failure) Cardiology follow-up encounter History of atrial fibrillation Neuropathy Multiple thyroid nodules Microalbuminuria Thyroid nodule Double vision Non-proliferative diabetic retinopathy KIANNA treated with BiPAP Vertigo Congestive heart failure (CHF) Low testosterone Carotid stenosis High cholesterol Vision loss of right eye Vision loss of left eye Anemia Non-smoker Atrial fibrillation Hypertension Polyneuropathy due to type 2 diabetes mellitus History of non-ST elevation myocardial infarction (NSTEMI) (03/28/20) TIA (transient ischemic attack) (2018) Hodgkin disease GERD (gastroesophageal reflux disease) BPH (benign prostatic hyperplasia) Anxiety and depression Morbid obesity with BMI of 45.0-49.9, adult Nephrolithiasis Diabetes mellitus, type II Home Medications ?Medication ?Instructions ?Recorded ?Last Taken ?Type tamsulosin 0.4 mg capsule 0.4 mg PO DAILY prostate 09/08/15 09/26/24 History duloxetine 60 mg capsule,delayed 60 mg PO DAILY depression 04/17/18 09/26/24 History release (Cymbalta) 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,signal person,cont #1 ea 07/26/20 Unknown Rx (Dexcom G6 Electric Truck Operator) 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 transmitter (Dexcom #1 ea 12/29/21 Unknown Rx G6 Transmitter device) infusion set for insulin pump 10/08/22 Unknown History insulin pump controller 10/08/22 Unknown History 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 sensor (Dexcom G6 #1 ea 02/25/23 Unknown Rx Sensor device) insulin regular hum U-500 conc 500 75 unit (0.15 mL) continuous 11/11/23 09/26/24 Rx unit/mL subcutaneous soln (Humulin subcutaneous infusion DAILY blood R U-500 (Concentrated) Insulin) sugar #20 mL ferrous sulfate 325 mg (65 mg 325 mg PO DAILY anemia 03/02/24 09/26/24 History iron) tablet (Feosol) Held on 12/17/24. Instructions: RECIEVING INFUSIONS metoprolol succinate 100 mg 100 mg PO DAILY heart #90 tabs 03/27/24 09/26/24 Rx tablet,extended release 24 hr lisinopril 40 mg tablet 40 mg PO DAILY blood pressure 04/12/24 09/26/24 History pantoprazole 40 mg tablet,delayed 40 mg PO BID acid reflux #60 tabs 07/22/24 09/26/24 Rx release (Protonix) empagliflozin 25 mg tablet 25 mg PO DAILY diabetes #30 tabs 08/12/24 09/26/24 Rx (Jardiance) apixaban 5 mg tablet (Eliquis) 5 mg PO BID blood thinner #180 tabs 08/31/24 09/26/24 Rx buspirone 10 mg tablet 10 mg PO BID Anxiety 09/16/24 09/26/24 History fenofibrate 54 mg tablet 134 mg PO QDAY 10/27/24 Unknown History albuterol sulfate 2.5 mg/3 mL 2.5 mg inhalation Q4H PRN 11/25/24 Unknown History (0.083 %) solution for nebulization shortness of breath or wheezing levothyroxine 125 mcg tablet 125 mcg PO QDAY 11/25/24 Unknown History pirfenidone 267 mg tablet 267 mg PO TID breathing 11/25/24 Unknown History acetaminophen 500 mg tablet 1,000 mg (2 x 500 mg) PO Q8 PRN 11/28/24 Unknown Rx pain #0 tabs aspirin 81 mg chewable tablet 81 mg PO BREAKFAST #0 tabs 11/28/24 Unknown Rx prednisone 10 mg tablet 10 mg PO DAILY #15 tabs 11/28/24 Unknown Rx furosemide 40 mg tablet (Lasix) 40 mg PO QDAY diuretic #270 tabs 12/08/24 Unknown Rx hydrochlorothiazide 25 mg tablet 25 mg PO QAM 12/16/24 Unknown History oxycodone-acetaminophen 5 mg-325 1 tab PO TID PRN PRN pain 12/17/24 Unknown History mg tablet prednisone 5 mg tablet mg PO 12/17/24 Unknown History rosuvastatin 40 mg tablet 40 mg PO DAILY 12/17/24 Unknown History sennosides 8.6 mg-docusate sodium 1 tab PO DAILY constipation 12/17/24 Unknown History 50 mg tablet (Senexon-S) ticagrelor 90 mg tablet 90 mg PO BID 12/17/24 Unknown History Allergy/AdvReac Type Severity Reaction Status Date / Time metoclopramide HCl (From Allergy Severe Anaphylaxis Verified 12/17/24 14:05 Reglan) Family History Brother Heart disease Mother CVA (cerebral vascular accident) Hypertension Rheumatoid arthritis Father Diabetes Other Alcohol abuse ulcer disease Surgical History History of cardiac catheterization History of lymph node excision History of left heart catheterization (2009) Hx of nephrolithotomy with removal of calculi History of thoracentesis (2015) Social History (Updated 11/26/24 @ 13:29 by Deysi Kelly) household members: spouse and none pets and animals: Yes Smoking Status: Never smoker Electronic Cigarette Use: not used second hand exposure: No alcohol intake: never substance use type: does not use what type of physical activity do you participate in: none ROS Constitutional Constitutional: Denies daytime sleepiness, difficulty sleeping, fatigue, fever(s), headache(s), increased appetite or lethargy Eyes Eyes: Denies change in eye color, change in vision, discharge from eye(s), double vision, dry eyes or erythema ENT HEENT: Denies disequillibrium, dizziness, dry mouth, dysphagia, halitosis, headache(s) or hearing loss Cardiovascular Cardiovascular: Denies bluish discoloration of hand/feet, chest pain, claudication, clubbing, cold extremities, cyanosis or diaphoresis Respiratory/Chest Respiratory/Chest: Reports dyspnea on exertion; Denies chest congestion, difficulty clearing secretions, excessive phlegm production, hemoptysis, hoarseness, inability to speak or mouth breathing Gastrointestinal Gastrointestinal: Denies anorexia, belching, bloating, change in bowel habits, chewing difficulty, coffee ground emesis or cramping Genitourinary Genitourinary: Denies abdominal discomfort, burning urination, difficulty urinating or flank pain Musculoskeletal Musculoskeletal: Denies loss of height, muscle cramps, muscle weakness, numbness or tremors Integumentary Integumentary: Reports erythema; Denies change in pigmentation, furuncle, hirsutism, jaundice or skin swelling Neurologic Neurologic: Denies abnormal speech, behavior changes, burning sensations, confusion, convulsions, disequilibrium or lack of coordination Psychiatric Psychiatric: Denies anxiety, auditory hallucinations, behavioral changes, difficulty concentrating, hallucinations, homicidal ideation, irritability or memory loss Endocrine Endocrinology: Denies cold intolerance, deepening of the voice, excessive sweating, fatigue, flushing, increase in ring/shoe/hat size or palpitations Hematologic/Lymphatic Hematologic/Lymphatic: Reports easy bleeding and easy bruising Allergic/Immunologic Allergic/Immunologic: Denies lip swelling, rhinitis, throat swelling, tongue swelling, eczemia or wheezing Vital Signs Vital Signs Vital Signs: 12/17/24 10:33 Temperature 96.7 F L Temperature Source Temporal Pulse Rate 101 H Respiratory Rate 18 Blood Pressure 103/64 Blood Pressure Mean 77 Blood Pressure Source Monitor Blood Pressure Position Sitting Blood Pressure Location Left Arm Oxygen Delivery Method Room Air Physical Exam Const alert, oriented x3 and no apparent distress General Appearance: cooperative and comfortable HEENT normocephalic and head/scalp atraumatic Eyes EOMs intact bilaterally General Eye: normal appearance of both eyes Neck full ROM General: normal visual inspection Resp normal air movement Effort and Inspection: able to speak in complete sentences Auscultation: clear to auscultation bilaterally Cardio regular rate, S1 normal heart sound and S2 normal heart sound GI soft to palpation and non-tender Skin General Skin Exam: erythema Wounds: wounds noted size Size: See clinical note, bed with slough, margins well approximated, no odor and surrounding erythema Neuro oriented x3, CN's II-XII intact bilaterally, moves all extremities and no focal motor deficits Psych mental status grossly normal, thought process normal, cooperative and affect normal Debridement Note Debridement Note Wound debrided: Right Thigh ( Medial ) Type of Debridement: Excisional debridement Anesthesia Used: 5% Lidocaine Gel Depth: Down to and including healthy tissue and in the subcutaneous layer Percentage of wound debrided: 100 Instrument Used: 3mm curette Tissue Removed: Slough and devitalized tisusue Severity: Fat Layer Exposed Amount of bleeding with debridement: Mild Bleeding Controlled with: Pressure Post-Debridement Measurements and Additional Note: Post-Debridement Measurements/Treatment - Nurse 1 - General Ulcer Assessment Start: 12/17/24 10:22 Freq: Status: Active Protocol: CLAUDINE Activity Type Activity Date Activity User E-sign Co-sign Detail Recorded Client Recorded Date Recorded By Document 12/17/24 10:33 [id number] 12/17/24 10:36 12/17/24 10:33 - Today's Visit Information Type of service Initial Visit Arrival Mode Ambulatory Accompanied by Patient Identification Verified (Name & Yes ) Vital Signs Temperature (97.8 F-99.1 F) 96.7 F L Temperature Source Temporal Pulse Rate (60-100) 101 H Pulse Location Monitor Respiratory Rate (12-18) 18 Respiratory rate source Observation Oxygen Delivery Method Room Air Blood Pressure (90/60-120/80) 103/64 Blood Pressure Mean 77 Source Monitor Position Sitting Blood Pressure Location Left Arm History Since Last Visit- (Skip if this is Patient's initial visit) Left Footwear Regular Shoe Right Footwear Regular Shoe Pain Scale: 0-10 Numeric Is Patient Pain Free? No lt thigh -Intensity 8 -Alleviating Factors/Interventions Medication, Medicate when due,Inactivity/ Resting Communication Assessment Preferred language Mosotho Record Changer Required No Able to Read Yes Able to Write Yes Communication Tools None Caregiver Communication Skills No Impairment Impairment Right Hearing Abillity Normal Left Hearing Abillity Normal Visual Assistive Devices Glasses Teaching Assessment Preferences Verbal,Written Barriers to Learning None Readiness To Learn Excellent Willingness to Engage in Self Management High Activies Readiness to Engage in Self Management High Activities Anxiety Level Calm Cooperation Cooperative Perception Coherent Interest in Health Problem Asks Questions Education Importance Acknowledges Need Does Patient Smoke tobacco or other No substances Smoking Status Never smoker Is Patient Diabetic Yes Functional Assessment Recent Decline in Ability to Perform Denies Any Declines Culture/Evangelical/Interpreter Deaf Cultural/Evangelical Needs that may affect No Treatment Plan Would you allow our hospital basting marker to No meet you for the purpose of spiritual/ emotional support? Interpreter Deaf to contact place of sikh No WC - Nurse 1 - General Ulcer Measurement Start: 12/17/24 10:22 Freq: Status: Active Protocol: Activity Type Activity Date Activity User E-sign Co-sign Detail Recorded Client Recorded Date Recorded By Document 12/17/24 10:33 [id number] 12/17/24 10:36 KW 12/17/24 10:33 Wound Center Nurse 1 1 LT MED THIGH -Current Size (cm) - Length 1 -Current Size (cm) - Width 1 -Current Size (cm) - Depth 0.2 -Total Square Cm 1 -Date of Last Picture (Recall this 12/17/24 field) -Exudate Amt Medium -Exudate Type Serosanguineous -Wound Margin Distinct, Outline Attached -Granulation Amt Medium (34-66%) -Granulation Quality Red -Necrosis Amt Medium (34-66%) -Necrotic Tissue Type Adherent Slough -Texture (Daysi-wound Skin Appearance) Assessed,Rash -Moisture (Daysi-wound Skin Appearance) Assessed -Color (Daysi-wound Skin Appearance) Assessed, Erythema -Temperature (Daysi-wound Skin No Abnormality Appearance) (Pt Warm) -Tenderness on Palpation (Daysi-wound No Skin Appearance) -Ulcer Cleansing Rinsed/ Irrigated with Saline -Foul Odor after Cleansing No -Anesthetic Used 5% Lidocaine Gel WC - Nurse 2 - General Ulcer CM Notes Start: 12/17/24 10:22 Freq: Status: Active Protocol: Activity Type Activity Date Activity User E-sign Co-sign Detail Recorded Client Recorded Date Recorded By Document 12/17/24 11:14 [id number] 12/17/24 11:21 12/17/24 11:14 Wound Center Nurse 2 -Time 11:14 -Correct Patient Yes -Correct Side, Site, Position Yes -Correct Procedure Yes -Procedure Performed Yes -Type of Procedure Debridement -Clinical Debridement Subcutaneous -Tissue Removed Subcutaneous -Post Debridement (cm) - Length 1.0 -Post Debridement (cm) - Width 0.9 -Post Debridement (cm) - Depth 0.1 -Total Square (Post) (cm) 0.90 -Area of Debridement (cm) - Length 1.0 -Area of Debridement (cm) - Width 0.9 -Total Square (Area) (cm) 0.90 -Tunneling No -Undermining/Tunneling No -Circular Undermining No -Wound/Ulcer Outcome Not Healed -Ulcer Cleansing Rinsed/ Irrigated with Saline -Foul Odor after Cleansing No -Bioengineered Tissue No -Bleeding Controlled with Pressure -Treatment Response Procedure Tolerated Well -Offloading No -Debridement - Subq, 1st 20sq cm Yes Pain Scale: 0-10 Numeric Is Patient Pain Free? Yes - Nurse 3 - General Ulcer D/C NN Start: 12/17/24 10:22 Freq: Status: Active Protocol: Activity Type Activity Date Activity User E-sign Co-sign Detail Recorded Client Recorded Date Recorded By Document 12/17/24 11:38 [id number] 12/17/24 11:40 12/17/24 11:38 Wound Care Center Nurse 3 1 LT MED THIGH -Ulcer Cleansing Rinsed/ Irrigated with Saline -Primary Dressing Applied Promogran, Silicone Border Foam 4x4 -Promogran 1 -Silicone Border Foam 4x4 1 Treatment Response Procedure Tolerated Well Pain Scale: 0-10 Numeric Is Patient Pain Free? Yes WC - Visit Discharge Discharge Condition Stable Ambulatory Status Ambulatory Transportation Private Auto Accompanied by Medication Reconcilliation completed & No provided to patient/care provider Clinical Summary of Care Provided Yes Charges/Coding Visit Charges Office Visits / Consults: [id number] OV L3 Est 20min Procedures Integumentary [id number]: [id number] Gillian subq tissue 20 sq cm/< Assessment/Plan Assessment/Plan (1) Chronic ulcer of thigh with fat layer exposed: CODE(S): L97.102 - 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 (2) Diabetes mellitus, type II: CODE(S): E11.9 - 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 without complications QUALIFIERS: Diabetes mellitus complication status: with unspecified complications Diabetes mellitus ocean transportation intermediary insulin use: without usp use Qualified Code(s): E11.8 - 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 with unspecified complications (3) Paroxysmal atrial fibrillation: CODE(S): I48.0 - Paroxysmal atrial fibrillation (4) Chronic respiratory failure: CODE(S): J96.10 - Chronic respiratory failure, unspecified whether with hypoxia or hypercapnia (5) Chronic respiratory failure with hypoxia: CODE(S): J96.11 - Chronic respiratory failure with hypoxia (6) Current use of usp anticoagulation: CODE(S): Z79.01 - residential (current) use of anticoagulants PLAN: Plan Debridement done as documented above, procedure was well-tolerated. Surrounding erythema concerning for intertriginous dermatitis. This is chronic and he denies pain, chills or feeling of unwell. History of obesity and he admits to significant moisture between his thighs. To right thigh ulcer, Promogran daily, cover with foam dressing. May change more often if soiled or wet. Continue antifungal powder to surrounding area of dermatitis which is said to be improving. Other supportive measures discussed including moisture control, use of 100% cotton/absorbable clothing and underwear. Keep environment cool to avoid excessive sweating, patient and spouse voiced understanding. Optimal diabetes control and increased protein intake also discussed. Their questions were answered and they were advised to let us know if they had any further questions or concerns. Follow-up here in a week or sooner if needed. This note was generated with [employer] dictation software. It may contain incorrect words, spelling, and punctuation that were not noted in checking the note before signing.
--- NOTE | 2024-12-18 09:28 | WC ---
PHOTO-LEFT THIGH MED 12/17/24
--- NOTE | 2024-12-18 09:31 | WC ---
PHOTO-LEFT THIGH MED 12/17/24
== END 2024-12-29 23:59 | disposition home or self-care (01) ==
LOC: WC 09:41
PROVIDERS: PCP Family Medicine; Referring Provider Family Medicine; Visit Provider Internal Medicine
DX: E11.622 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 with other skin ulcer (principal); L97.112 Non-pressure chronic ulcer of right thigh with fat layer exposed; J96.11 Chronic respiratory failure with hypoxia; I50.32 Chronic diastolic (congestive) heart failure; I13.0 Hypertensive heart and chronic kidney disease with heart failure and stage 1 through stage 4 chronic kidney disease, or unspecified chronic kidney disease; I48.0 Paroxysmal atrial fibrillation; E11.22 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 with diabetic chronic kidney disease; E11.42 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 with diabetic polyneuropathy; E78.00 Pure hypercholesterolemia, unspecified; N18.9 Chronic kidney disease, unspecified; I25.10 Atherosclerotic heart disease of native coronary artery without angina pectoris
CPT/HCPCS: 11042; 99213; G0463

== ENCOUNTER 2024-12-17 13:50 | Outpatient (CLI) | payer OTHER, SELFPAY ==
[2024-12-17 13:59] VITALS: BP 87/47; PULSE 81; RESP 20; TEMP 36.1; O2SAT 99
[2024-12-17 14:05] VITALS: BP 82/43
[2024-12-17] MEDS: 0.9% NaCl Peripheral Flush Adult IV (14:06)
[2024-12-17] MEDS: 0.9% NaCl IVPB Med Flush (250 mL) 15 ML IV (14:38)
[2024-12-17] MEDS: Iron Sucrose Complex (Venofer) 100 MG in 0.9% NaCl 100 ML 420 MG IV (14:39)
[2024-12-17 15:39] VITALS: BP 90/51; PULSE 73; RESP 18; TEMP 36.4; O2SAT 100
== END 2024-12-17 23:59 | disposition home or self-care (01) ==
LOC: MEDOUTP 13:51
PROVIDERS: PCP Family Medicine; Referring Provider Family Medicine; Visit Provider Family Medicine
DX: E61.1 Iron deficiency (principal); E11.622 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 with other skin ulcer; L97.112 Non-pressure chronic ulcer of right thigh with fat layer exposed; J96.11 Chronic respiratory failure with hypoxia; I50.32 Chronic diastolic (congestive) heart failure; I13.0 Hypertensive heart and chronic kidney disease with heart failure and stage 1 through stage 4 chronic kidney disease, or unspecified chronic kidney disease; I48.0 Paroxysmal atrial fibrillation; E11.22 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 with diabetic chronic kidney disease; E11.42 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 with diabetic polyneuropathy; E78.00 Pure hypercholesterolemia, unspecified; N18.9 Chronic kidney disease, unspecified; I25.10 Atherosclerotic heart disease of native coronary artery without angina pectoris
CPT/HCPCS: 96365; 96361; 11042; 99213; J1756; A4216; G0463

== ENCOUNTER 2024-12-23 20:30 | Emergency (ER) | payer OTHER, SELFPAY ==
[2024-12-23 20:30] VITALS: BP 74/55; PULSE 76; RESP 18; TEMP 36.6; O2SAT 98; BMI 46.8
--- OUTSIDE RECORDS SUMMARY | 2024-12-23 21:25 | XMS RPT_ITS | CCD ---
Author Organization [facility] Care Team Providers Care Air Pollution Inspector Name Role Phone Radha Khan Primary Care Provider Dr. Radha Khan Primary Care Provider [...] Attending Provider Dr. Krunal Pate Other Provider JING Cihn NPC Linda Attending Provider Dr. Radha Khan Primary Care Provider Dr. Radha Khan Referring Provider Asya ANG, PITO Jackson Attending Provider PITO Gerardo Attending Provider [phone] Jonathon Salas Attending Provider Dr. Jonathon Salas Other Provider Dr. Fran Rodriguez Attending Provider Dr. Radha Khan Primary Care Provider Dr. Radha Khan Referring Provider Dr. Jonathon Salas Referring Provider Roof THERAPEUTIC STRATEGY LEAD, PITO Jackson Attending Provider Dr. Radha Khan Primary Care Provider Dr. Radha Khan Referring Provider PITO Gerardo Attending Provider Roof THERAPEUTIC STRATEGY LEAD, SAV-Surinder Jackson Attending Provider [place] THERAPEUTIC STRATEGY LEAD, SAV-Surinder Childress Attending Provider Dr. Radha Khan [...] Attending Provider Dr. Karol Rushing Attending Provider [facility] THERAPEUTIC STRATEGY LEADPITO Attending Provider Dr. Toni Vann Attending Provider Dr. Karol Rushing Other Provider TUNDE Zimmerman-Surinder Moser Referring Provider Sarika GRIFFITHS PA-C Shanti Other Provider Dr. Radha Khan Primary Care Provider Dr. Radha Khan Referring Provider PITO Gerardo Attending Provider Dr. Radha Khan Primary Care Provider Dr. Radha Khan Referring Provider Dr. Karol Rushing Attending Provider Dr. Francois Valiente Attending Provider Dr. Radha Khan Primary Care Provider Dr. Radha Khan Referring Provider [facility] THERAPEUTIC STRATEGY LEADPITO Attending Provider Dr. Karol Rushing Attending Provider Dr. Toni Vann Attending Provider Dr. Karol Rushing Other Provider TUNDE Zimmerman-Surinder Moser Referring Provider RON Zimmerman Other Provider Dr. Francois Valiente Attending Provider Dr. Francois Valiente Referring Provider SAV Gerardo-C Jessica Attending Provider Dr. Radha Khan Primary Care Provider Dr. Radha Khan Referring Provider [facility] THERAPEUTIC STRATEGY LEAD, THERAPEUTIC STRATEGY LEAD-C Oren Jackson Attending Provider Dr. Ochoa Dobbs Attending Provider BILL MCRAE, DR GARCIA Primary Care Physician Radha Khan Primary Care Provider CHITRA CUT OFF MACHINE OPERATOR-BUS OPERATORCHITO Referring Unavailable CHITRA CUT OFF MACHINE OPERATOR-BUS OPERATOR, CHITO Nuñez Attending Unavailable CHITRA DUKESN-BUS OPERATOR, CHITO Nuñez Admitting Unavailable ERNESTO MCRAE, [facility] Consulting Unavailable DR RADHA KHAN MD Primary Care Unavailable Juventino MCRAE, Suzy Unavailable Unavailable Primary Care Provider Unavailstuart Khan MD, Radha Melendez Primary Care Provider [phone] NEREIDA, MAROUN Referring Unavailable NEREIDA, MAROUN Referring Unavailable JOLLRADHA FULLER Primary Care Unavailable NEREIDA, MAROUN Referring Unavailable JORADHA CAGLE Primary Care Unavailable NEREIDA, MAROUN Referring Unavailable RADHA KHAN Primary Care Unavailable Dr. Radha Khan MD Primary Care Provider Dr. Luli Alex DO Referring Provider [phone] Dr. Luli Alex DO Emergency Provider Dr. Eduin Ospina MD Admit Provider Unavailable Dr. Eduin Ospina MD Other Provider Unavailable Ryder MCRAE, Dr. Norwood Attending Provider Monico MCRAE, Dr. Hall Other Provider Dr. Andrea Murphy MD Other Provider Dr. Jonathon Salas MD Other Provider Michael PUTNAM, Dr. Peters Other Provider Brynn MCRAE, Dr. Eduin Duarte Other Provider [phone] Aneta MCRAE, Dr. Bermudez Other Provider Payton MCRAE, Dr. Taylor Other Provider [phone] Magdaleno MCRAE, Dr. Arnold Other Provider [phone] Robert MCRAE, Dr. Lopez Other Provider Javy MCRAE, Dr. Perdomo Other Provider [phone] Yvan MCRAE, Dr. Adamson Other Provider Jose MCRAE, Dr. Myles Other Provider Harriet MCRAE, Dr. Yeager Other Provider Unavailabl adam Valentine MD, Dr. Amin Other Provider Gavi MCRAE, Dr. Gilliam Other Provider [phone] Sim MCRAE, Dr. Menchaca Other Provider Felice PUTNAM, Dr. Lugo Other Provider [phone] Bernice MCRAE, Dr. Huber Other Provider [phone] Kae MCRAE, Dr. Gary Other Provider [phone] Jose PUTNAM, Dr. Desir Other Provider Hiro MCRAE, Dr. Reyes Other Provider Horacio MCRAE, Dr. Hernandez Other Provider Ryder MCRAE, Dr. Norwood Other Provider Dr. Fran Rodriguez DO Attending Provider Bill MCRAE, Dr. Radha Mcmahon Referring Provider Mari THERAPEUTIC STRATEGY LEAD-CJessica Attending Provider Bob THERAPEUTIC STRATEGY LEAD-C, Chen Nuñez Attending Provider Dr. Radha Khan MD Attending Provider Dr. Daniel Mcneil DO Referring Provider Dr. Daniel Mcneil DO Emergency Provider Arabella MCRAE, Dr. Cookie Ho Admit Provider Arabella MCRAE, Dr. Cookie Ho Other Provider Edmund Dey MD Other Provider Unavailable Deb MCRAE, Dr. Foster Other Provider [phone] Julia MCRAE, Amy Other Provider Unavailable Dr. Bethany Velasco DO Other Provider Loy MCRAE, Dr. Ayala Other Provider [phone] Yani MCRAE, Dr. Mondragon Other Provider Wm MCRAE, Dr. Acharya Other Provider Tejas MCRAE, Dr. Ruano Other Provider [phone] Mark MCRAE, Dr. Gregg Other Provider Nitish MCRAE, Dr. Ibarra Other Provider Paris MCRAE, Jennifer Other Provider Maria Elena MCRAE, Dr. Shepherd Other Provider Bharathi MCRAE, Dr. Cid Other Provider Serena MCRAE, Dr. Martinez Other Provider Aminata MCRAE, Dr. Indigo Knapp Other Provider Palmer MCRAE, Dr. Valderrama Other Provider Una MCRAE, Dr. Mccloud Other Provider Darci MCRAE, Dr. Gauthier Other Provider Esmer MCRAE, Dr. Guillen Other Provider Unavailable Osvaldo MCRAE, Yousef Other Provider Unavailable Dr. Ochoa Johnson DO Attending Provider Dr. Cookie Bell MD Attending Provider Nancy MCRAE, Dr. Muñoz Attending Provider Dr. Toni Vann MD Referring Provider Dr. Sumanth Hanna MD Attending Provider Dilia MCRAE, Dr. Packer Attending Provider Tamika MCRAE, Dr. Veras Attending Provider Tamika MCRAE, Dr. Veras Referring Provider Colton PA, Lydia M Attending Provider Lydia Jiménez Referring Provider Bob THERAPEUTIC STRATEGY LEAD-C, Cehn M Referring Provider Sumanth Hanna MD Attending Provider Unavailable Brandt Winter MD Primary Care Provider James Salgueroyler Attending Provider Erik GRIFFITHS Khadar Referring Provider Bill MCRAE, Dr. Garcia S Primary Care Provider Bill MCRAE, Dr. Garcia S Primary Care Provider Bill MCRAE, Dr. Radha Mcmahon Referring Provider Bill MCRAE, Dr. Garcia S Primary Care Provider Bill MCRAE, Dr. Radha Mcmahon Referring Provider Lydia Jiménez Attending Provider Lydia Jiménez M Referring Provider Dr. Sumanth Hanna MD Attending Provider Bob THERAPEUTIC STRATEGY LEAD-CChen Attending Provider Bob THERAPEUTIC STRATEGY LEAD-CChen M Referring Provider Dr. Toni Vann MD Attending Provider [phone] Dr. Toni Vann MD Referring Provider Sumanth Hanna MD Attending Provider Unavailable Brandt Winter MD Primary Care Provider Erik PA Khadar Attending Provider Erik GRIFFITHS Khadar Referring Provider Mari THERAPEUTIC STRATEGY LEAD-CJessica Attending Provider Norma MCRAE, Brandt Referring Provider Bill MCRAE, Dr. Radha Mcmahon Primary Care Provider Bill MCRAE, Dr. Radha Mcmahon Referring Provider Sadi MCRAE, Dr. Ortiz Referring Provider Sadi MCRAE, Dr. Ortiz Emergency Provider Yash MCRAE, Dr. Hagen Admit Provider Yash MCRAE, Dr. Hagen Attending Provider Bill MCRAE, Dr. Radha cMmahon Primary Care Provider Bob THERAPEUTIC STRATEGY LEAD-C, Chen Nuñez Attending Provider Nancy MCRAE, Dr. Muñoz Attending Provider Nancy MCRAE, Dr. Muñoz Referring Provider Bill MCRAE, Dr. Radha Mcmahon Referring Provider Mari THERAPEUTIC STRATEGY LEAD-CJessica Attending Provider Norma MCRAE, Brandt Referring Provider Sadi MCRAE, Dr. Ortiz Referring Provider Sadi MCRAE, Dr. Ortiz Emergency Provider Yash MCRAE, Dr. Hagen Admit Provider Yash MCRAE, Dr. Hagen Attending Provider Dr. Xiao Berrios MD Other Provider Edmund Dey MD Other Provider Unavailable Deb MCRAE, Dr. Foster Other Provider [phone] Amy Dumont MD Other Provider Unavailable Dr. Bethany Velasco DO Other Provider Loy MCRAE, Dr. Ayala Other Provider [phone] Yani MCRAE, Dr. Mondragon Other Provider Wm MCRAE, Dr. Acharya Other Provider Tejas MCRAE, Dr. Ruano Other Provider Mark MCRAE, Dr. Gregg Other Provider Nitish MCRAE, Dr. Ibarra Other Provider Paris MCRAE, Jennifer Other Provider Maria Elena MCRAE, Dr. Shepherd Other Provider Bharathi MCRAE, Dr. Cid Other Provider Serena MCRAE, Dr. Martinez Other Provider Aminata MCRAE, Dr. Indigo Knapp Other Provider Palmer MCRAE, Dr. Valderrama Other Provider Una MCRAE, Dr. Mccloud Other Provider Darci MCRAE, Dr. Gauthier Other Provider Esmer MCRAE, Dr. Guillen Other Provider Unavailable Osvaldo [facility], [facility] Other Provider Unavailable Dr. Karina Benítez DO Attending Provider Dr. Karina Benítez DO Other Provider Karma MCRAE, Dr. Smith Attending Provider Bill MCRAE, Dr. Radha Mcmahon Primary Care Provider Dr. Toni Vann MD Attending Provider Dr. Toni Vann MD Referring Provider Dr. Radha Khan MD Referring Provider Dr. Karina Benítez DO Referring Provider Dr. Angel Avitia MD Referring Provider Dr. Karina Benítez DO Referring Provider Brandt Winter MD Attending Provider [phone] Toni Vann MD Other Provider Mari THERAPEUTIC STRATEGY LEAD-C, Jessica Other Provider Colton GRIFFITHS, Lydia Nuñez Other Provider Dr. Karina Benítez DO Referring Provider Lydia Jiménez Attending Provider Esmer PUTNAM, Dr. Collins Referring Provider Tamika MCRAE, Dr. Veras Attending Provider Dr. Rito Lundberg MD Referring Provider Bill MCRAE, Dr. Radha Mcmahon Primary Care Provider Nancy MCRAE, Dr. Muñoz Attending Provider Nancy MCRAE, Dr. Muñoz Referring Provider Esmer PUTNAM, Dr. Collins Referring Provider Esmer PUTNAM, Dr. Collins Referring Provider Bob ANG-C, Chen Nuñez Attending Provider Juan MCRAE, Dr. Moffett Emergency Provider Unavailab le Alex PUTNAM, Dr. Packer Admit Provider Alex PUTNAM, Dr. Packer Attending Provider NEREIDA, MAROUN Attending Unavailable NEREIDA, MAROUN Attending [...] Unavailable NEREIDA, MAROUN Attending Unavailable NEREIDA, MAROUN Referring Unavailable JOLLIFF, RADHA JOSHUA Primary Care Unavailable Dr. Ochoa Johnson DO Other Provider Bill MCRAE, Dr. Radha Mcmahon Referring Provider Nancy MCRAE, Dr. Muñoz Attending Provider Norma MCRAE, Brandt Primary Care Provider Nancy MCRAE, Dr. Muñoz Referring Provider Tamika MCRAE, Dr. Veras Attending Provider Dr. Radha Khan MD Primary Care Provider Dr. Rito Lundberg MD Referring Provider [phone] OZIEL CULP Attending Unavailable VENIZELOLisandro, OZIEL Referring Unavailable JOLLIFF, RADHA Primary Care Unavailable VENIZEOZIEL NAVARRO Attending Unavailable JOLLIFF, RADHA Primary Care Unavailable JUVENTINO, SUZY Attending Unavailable JUVENTINO, SUZY Referring Unavailable JOLLIFF, RADHA Primary Care Unavailable MEY LOYA Attending Unavailable BOSMEY Webb Referring Unavailable JOLLIFF, RADHA Primary Care Unavailable JUVENTINO, SUZY Attending Unavailable JOLLIFF, RADHA Primary Care Unavailable VENIZEMELANIE, OZIEL Attending Unavailable VENIZELOLisandro, OZIEL Referring Unavailable JOLLIFF, RADHA Primary Care Unavailable VENIZELOLisandro, OZIEL Attending Unavailable VENIZELOLisandro, OZIEL Referring Unavailable JOLLIFF, RADHA Primary Care Unavailable EMY LOYA Referring Unavailable JOLLIFF, RADHA Primary Care Unavailable Toni Vann Consulting Unavailable Norma, Chalon Primary Care Unavailable Norma, Chalon Referring Unavailable Davidson Winteron Attending Unavailable Jessica Gerardo Consulting Unavailable Lydia Jiménez Consulting Unavail able Karina Benítez Attending Unavailable Karina Benítez Referring Unavailable Norma, Chalon Primary Care Unavailable Mireya Garcia Attending Unavailable Jolliff, Radha S Primary Care Unavailable Mireya Garcia Referring Unavailable Fran Rodriguez Attending Unavailable Xiao Berrios Consulting Unavailable Xiao Berrios Admitting Unavailable Krunal Pate Referring Unavailable Jolliff, Radha S Primary Care Unavailable Rafael Marc Consulting Unavailable Andrea Murphy Consulting Unavailable Jonathon Salas Consulting Unavailable Fran Rodriguez Consulting Unavailable Eduin Swain Consulting Unavailable Aidan Cornell Consulting Unavailable Brandon Cain Consulting Unavailable Catalina Dolan Consulting UnavailJohn Herrera Consulting Unavailable Conor Palafox Consulting Unavailable Shameka Garcia Consulting Unavailable Shobha Larios Consulting Unavailable Robert Valentinem Consulting Unavailable Mane Gatica Consulting Unavailable Nikolai Montemayor Consulting Unavailable Kassandra Viveroskhdeep Consulting Unavailable Cecile Queen Consulting Unavailable Thang Garcia Consulting Unavailable Eric Bosch Consulting Unavailable David Leonard Consulting Unavailable Krunal Pate Consulting Unavailable Jolliff, Radha S Referring Unavailable FriendEde Attending Unavailable Friend, Ede Consulting Unavailable Jolliff, Radha S Primary Care Unavailable AnthonyeDeysiewongbe Attending Unavailable Norma, Chalon Primary Care Unavailable Norma, Chalon Referring Unavailable Oleghe, Efewongbe Consulting Unavailable Norma, Chalon Primary Care Unavailable Jopperi, Ochoa Admitting Unavailable Jopperi, Ochoa Consulting Unavailable Jopperi, Ochoa Attending Unavailable Jolliff, Radha S Referring Unavailable Fior [place] NP Attending Unavailable Jolliff, Radha S Primary Care Unavailable Jolliff, Radha S Referring Unavailable Lydia Jiménez Attending Unavail able Jolliff, Radha S Primary Care Unavailable Jolliff, Radha S Referring Unavailable Jessica Gerardo Attending Unavailable Jolliff, Radha S Primary Care Unavailable Jolliff, Radha S Primary Care Unavailable Sumanth Hanna Attending Unavailable Lydia Jiménez Referring Unavail able Norma, Chalon Primary Care Unavailable Joanie Neil Attending Unavailable Eduin Uamña Referring Unavailable Jolliff, Radha S Primary Care Unavailable Ochoa Dobbs Attending Unavailable Jolliff, Radha S Primary Care Unavailable Sumanth Hanna Attending Unavailable Edmund Dey Consulting Unavailable Jolliff, Radha S Primary Care Unavailable Tarun, Daniel Referring Unavailable Cookie Bell Admitting Unavailable Jopperi, Ochoa Attending Unavailable Adeli, Amir Consulting Unavailable Hinduja, Amy Consulting Unavailable Rod Bethany Consulting Unavailable Zha, Lucy Consulting Unavailable [...] Riley Consulting Unavailable Cookie Bell Consulting Unavailable Tia Boyd Attending Unavailabl e Jolliff, Radha S Primary Care Unavailable Jolliff, Radha S Primary Care Unavailable Toni Vann Attending Unavailable Toni Vann Referring Unavailable Berrios, Xiao Consulting Unavailable Berrios, Xiao Admitting Unavailable Berrios, Xiao Attending Unavailable Jolliff, Radha S Primary Care Unavailable Krunal Pate Attending Unavailable Edmund Dey Consulting Unavailable Berrios, Xiao Admitting Unavailable Norma, Chalon Primary Care Unavailable Karina Benítez Attending Unavailable Angel Avitia Referring Unavailable Adeli, Amir Consulting Unavailable Hinduja, Amy Consulting Unavailable Rod, Bethany Consulting Unavailable Zha, Lucy Consulting Unavailable Yani, Giancarlo Consulting Unavailable Wm, Patrizia Consulting Unavailable Bittar, Alden Consulting Unavailable FloresJulius wylie Consulting Unavailable Fred Talbert Consulting Unavailable Jennifer Toledo Consulting Unavailable Joao Arredondo Consulting Unavailable Palak Garvin Consulting Unavailable Michelle Lyons Consulting Unavailable Indigo Coates Consulting UnavailLavelle Gillespie Consulting Unavailable Heart, Rogers Consulting Unavailable Abrahan Bejarano Consulting Unavailable Mindy Benítez Consulting Unavailable Ryan Riley Consulting Unavailable Berrios, Xiao Consulting Unavailable Jolliff, Radha S Primary Care Unavailable Lydia Jiménez Attending Unavail able Lydia Jiménez Referring Unavail able Isckarus, Mansour Attending Unavailable Jolliff, Radha S Primary Care Unavailable Isckarus, Mansour Referring Unavailable Jolliff, Radha S Attending Unavailable Jolliff, Radha S Primary Care Unavailable Jolliff, Radha S Referring Unavailable Jolliff, Radha S Primary Care Unavailable Lydia Jiménez Attending Unavail able Lydia Jiménez Referring Unavail able Jolliff, Radha S Primary Care Unavailable Chen Rojas Attending Unavailable Chen Rojas Referring Unavailable Jolliff, Radha S Primary Care Unavailable Urban Garcia Attending Unavailable Jolliff, Radha S Attending Unavailable Jolliff, Radha S Primary Care Unavailable Jolliff, Radha S Referring Unavailable Jolliff, Radha S Referring Unavailable Jolliff, Radha S Attending Unavailable Jolliff, Radha S Primary Care Unavailable Yoni THERAPEUTIC STRATEGY LEADFior Attending Unavailable Yoni THERAPEUTIC STRATEGY LEADFior Referring Unavailable Jolliff, Radha S Primary Care Unavailable Norma, Brandt Referring Unavailable Norma, Chalon Primary Care Unavailable Brandt Winter Attending Unavailable Eduin Umaña Admitting Unavailable Jolliff, Radha S Primary Care Unavailable Eduin Umaña Referring Unavailable Eduin Umaña Consulting Unavailable Ochoa Johnson Attending Unavailable Fran Rodriguez Attending Unavailable Fior [place] NP Referring Unavailable Jolliff, Radha S Primary Care Unavailable Norma, Chalon Primary Care Unavailable Sarah Parada Attending Unavailable Jolliff, Radha S Referring Unavailable Jolliff, Radha S Primary Care Unavailable Ochoa Dobbs Attending Unavailable Jolliff, Radha S Referring Unavailable Chen Rojas Attending Unavailable Norma, Chalon Primary Care Unavailable Eduin Umaña Admitting Unavailable de Eduin Landon Referring Unavailable Jopalmaiff, Radha S Primary Care Unavailable Eduin Umaña Consulting Unavailable Ochoa Johnson Attending Unavailable Ochoa Johnson Consulting Unavailable Eduin Umaña Attending Unavailable Fabiolaiff, Radha S Primary Care Unavailable Eduin Ospina Admitting Unavailable Eduin Ospina Consulting Unavailable Luli Alex Referring Unavailable Cuco Soler Attending Unavailable Rafael [...] Bosch Consulting Unavailable David Leonard Consulting Unavailable Cuco Soler Consulting Unavailable Fran Rodriguez Attending Unavailable Karina Benítez Attending Unavailable Xiao Berrios Admitting Unavailable Norma, Chalon Primary Care Unavailable Edmund Dey Consulting Unavailable Angel Avitia Referring Unavailable Kristin Boyd Consulting Unavailable Amy Dumont Consulting Unavailable Bethany Velasco Consulting Unavailable Lucy Granado Consulting Unavailable Giancarlo Lomeli Consulting Unavailable Patrizia Burk Consulting Unavailable Alden Lazaro Consulting Unavailable Julius Flores Consulting Unavailable Fred Talbert Consulting Unavailable Jennifer Toledo Consulting Unavailable Joao Arredondo Consulting Unavailable Palak Garvin Consulting Unavailable Michelle Lyons Consulting Unavailable Aminata, Ofeliad Ra Consulting UnavailLavelle Gillespie Consulting Unavailable Rogers Heart Consulting Unavailable Abrahan Bejarano Consulting Unavailable Mindy Benítez Consulting Unavailable Ryan Riley Consulting Unavailable Xiao Berrios Consulting Unavailable Karina Benítez Consulting Unavailable Toni Vann Attending Unavailable Norma, Chalon Primary Care Unavailable Norma, Chalon Referring Unavailable Roof, Oren H Referring Unavailable Jolliff, Radha S Primary Care Unavailable Roof, Oren H Consulting Unavailable Sumanth Hanna Attending Unavailable Fran Rodriguez Attending Unavailable Yoni THERAPEUTIC STRATEGY LEAD, Fior Consulting Unavailable Vallejo THERAPEUTIC STRATEGY LEAD, Fior Referring Unavailable Jolliff, Radha S Primary Care Unavailable Jolliff, Radha S Primary Care Unavailable Jolliff, Radha S Referring Unavailable Ede Frost Attending Unavailable Yoni ANG, Fior Attending Unavailable Yoni THERAPEUTIC STRATEGY LEAD, Fior Referring Unavailable Jolliff, Radha S Primary Care Unavailable Jolliff, Radha S Primary Care Unavailable Xiao Berrios Consulting Unavailable Xiao Berrios Admitting Unavailable Krunal Pate Attending Unavailable Rafael Marc Consulting Unavailable Andrea Murphy Consulting Unavailable Jonathon Salas Consulting Unavailable Fran Rodriguez Consulting Unavailable Eduin Swain Consulting Unavailable Aidan Cornell Consulting Unavailable Brandon Cain Consulting Unavailable Catalina Dolan Consulting UnavailJohn Herrera Consulting Unavailable Conor Palafox Consulting Unavailable Shameka Garcia Consulting Unavailable Shobha Larios Consulting Unavailable Meme Brennan Consulting Unavailable Mane Gatica Consulting Unavailable Nikolai Montemayor Consulting Unavailable Parish Viveros Consulting Unavailable Cecile Queen Consulting Unavailable Thang Garcia Consulting Unavailable Eric Bosch Consulting Unavailable David Leonard Consulting Unavailable Norma, Chalon Primary Care Unavailable Ochoa Johnson Attending Unavailable Jolliff, Radha S Primary Care Unavailable Jolliff, Radha S Referring Unavailable Chen Rojas Attending Unavailable Jolliff, Radha S Primary Care Unavailable Toni Vann Attending Unavailable Toni Vann Referring Unavailable Toni Vann Referring Unavailable Toni Vann Attending Unavailable Norma, Chalon Primary Care Unavailable Jolliff, Radha S Referring Unavailable Norma, Chalon Primary Care Unavailable Toni Vann Attending Unavailable Jolliff, Radha S Primary Care Unavailable Jolliff, Radha S Referring Unavailable Sumanth Hanna Attending Unavailable Jolliff, Radha S Primary Care Unavailable DerikdoToni eden Attending Unavailable Jolliff, Radha S Referring Unavailable Mireya Garcia Attending Unavailable Jolliff, Radha S Primary Care Unavailable Jolliff, Radha S Referring Unavailable Rito Lundberg Attending Unavailable Norma, Chalon Primary Care Unavailable Norma, Chalon Referring Unavailable Norma, Chalon Primary Care Unavailable Lydia Jiménez Attending Unavail able Jolliff, Radha S Referring Unavailable Edmund Dey Consulting Unavailable Xiao Berrios Attending Unavailable Yash, Xiao Admitting Unavailable Norma, Chalon Primary Care Unavailable Avitia, Angel Referring Unavailable AdeYolette xiaor Consulting Unavailable Amy Dumont Consulting Unavailable Bethany Velasco Consulting Unavailable Lucy Granado Consulting Unavailable Giancarlo Lomeli Consulting Unavailable Patrizia Burk Consulting Unavailable Alden Lazaro Consulting Unavailable Julius Flores Consulting Unavailable Fred Talbert Consulting Unavailable Jennifer Toledo Consulting Unavailable Joao Arredondo Consulting Unavailable Palak Garvin Consulting Unavailable RidMichelle martinez Consulting Unavailable Zajessica, Mhd Ra Consulting UnavailLavelle Gillespie Consulting Unavailable Rogers Heart Consulting Unavailable Abrahan Bejarano Consulting Unavailable Mindy Benítez Consulting Unavailable Ryan Riley Consulting Unavailable Xiao Berrios Consulting Unavailable Jolliff, Radha S Primary Care Unavailable Tarun, Daniel Referring Unavailable White, Cookie L Consulting Unavailable White, Cookie L Admitting Unavailable Ochoa Johnson Attending Unavailable Jolliff, Radha S Primary Care Unavailable Tarun, Daniel Referring Unavailable White, Cookie L Admitting Unavailable White, Cookie L Consulting Unavailable White, Cookie L Attending Unavailable Norma, Chalon Primary Care Unavailable Norma Chalon Attending Unavailable Norma, Chalon Referring Unavailable James Valenciayler Attending Unavailable Norma, Chalon Primary Care Unavailable Demiter Khadar Referring Unavailable Marjorie Hernandez Attending Unavailable Norma, Chalon Primary Care Unavailable Norma, Chalon Referring Unavailable Roof, Oren H Referring Unavailable RoofOren H Attending Unavailable Jolliff, Radha S Primary Care Unavailable Eduin Ospina Attending Unavailable Jolliff, Radha S Primary Care Unavailable Baddour, Toni Attending Unavailable Baddour, Toni Referring Unavailable Jolliff, Radha S Primary Care Unavailable Baddour, Toni Attending Unavailable Baddour, Toni Referring Unavailable Jolliff, Radha S Referring Unavailable Jolliff, Radha S Primary Care Unavailable Ochoa Dobbs Attending Unavailable Chen Rojas Attending Unavailable Norma, Chalon Referring Unavailable Norma, Chalon Primary Care Unavailable Norma, Chalon Primary Care Unavailable Baddour, Toni Attending Unavailable Norma, Chalon Referring Unavailable Jolliff, Radha S Referring Unavailable Jolliff, Radha S Primary Care Unavailable Lydia Jiménez Attending Unavail able Jolliff, Radha S Referring Unavailable IsckarusRito Attending Unavailable Jolliff, Radha S Primary Care Unavailable Isckarus Mansearlene Attending Unavailable Jolliff, Radha S Primary Care Unavailable Jolliff, Radha S Referring Unavailable Jolliff, Radha S Primary Care Unavailable Baddour, Toni Referring Unavailable Baddour, Toni Attending Unavailable Jolliff, Radha S Referring Unavailable Jolliff, Radha S Primary Care Unavailable Chen Rojas Attending Unavailable Baddour, Toni Referring Unavailable Baddour, Toni Attending Unavailable Jolliff, Radha S Primary Care Unavailable Jolliff, Radha S Referring Unavailable Jolliff, Radha S Primary Care Unavailable Chen Rojas Attending Unavailable Jolliff, Radha S Referring Unavailable Jolliff, Radha S Primary Care Unavailable Sumanth Hanna Attending Unavailable Jolliff, Radha S Primary Care Unavailable Baddour, Toni Referring Unavailable Baddour, Toni Attending Unavailable Jolliff, Radha S Primary Care Unavailable Jolliff, Radha S Referring Unavailable Yoni ANG, Fior Attending Unavailable Jessica Gerardo Attending Unavailable Norma, Chalon Primary Care Unavailable Noram, Chalon Referring Unavailable Eduin Ospina Admitting Unavailable Eduin Ospina Consulting Unavailable Ungur, Remus Referring Unavailable Cuco Soler Attending Unavailable Jolliff, Radha S Primary Care Unavailable Rafael Marc Consulting Unavailable Andrea Murphy Consulting Unavailable Jonathon Salas Consulting Unavailable Fran Rodriguez Consulting Unavailable Eduin Swain Consulting Unavailable Aidan Cornell Consulting Unavailable Brandon Cain Consulting Unavailable Catalina Dolan Consulting Unavailab John Gunter Consulting Unavailable Conor Palafox Consulting Unavailable Juan Diego Santoro Consulting Unavailable Shameka Garcia Consulting Unavailable Shobha Larios Consulting Unavailable Brennan Valentine Consulting Unavailable Mane Gatica Consulting Unavailable Nikolai Montemayor Consulting Unavailable Parish Viveros Consulting Unavailable Cecile Queen Consulting Unavailable Abdirahman Pal Consulting Unavailable Thang Garcia Consulting Unavailable Eric Bosch Consulting Unavailable David Leonard Consulting Unavailable Brandt Winter Primary Care Unavailable Ochoa Johnson Admitting Unavailable Ochoa Johnson Attending Unavailable Allergies Allergy Classification Reported Allergen(s) Allergy Type Date of Onset Reaction(s) Facility DOPamine Antagonists (1 source) Metoclopramide; Translations: [metoclopramide] Drug Allergy [facility] (20 sources) Metoclopramide Drug Allergy 6 Shortness of Breath [facility] (20 sources) Metoclopramide; Translations: [METOCLOPRAMIDE] Drug Allergy 6 Anaphylaxis, Shortness of breath [facility] (1 source) Metoclopramide Drug Allergy [facility] Repository Medications Current Medications Medication Drug Class(es) Dates Sig (Normalized) Sig (Original) acetaminophen 500 mg oral tablet (3 sources) Start: 11-28-2024 acetaminophen 325 mg / oxyCODONE hydrochloride 5 mg oral tablet (20 sources) Opioid Agonist Start: 09-16-2024 Start: 09-16-2024 Oxycodone-Acet aminophen 5-325 mg tablet Active 1 {tbl} PO THREE TIMES A DAY as needed for pain 0 September 16, 2024 12:00am Start: 04-22-2024 End: 04-24-2024 Start: 04-22-2024 End: 04-24-2024 Oxycodone-Acetaminophen 5-32 5 mg tablet Discontinued 1 {tbl} PO THREE TIMES A DAY as needed 0 April 22, 2024 1:00am April 24, 2024 8:26pm Start: 09-08-2015 End: 01-08-2018 Start: 09-08-2015 End: 01-08-2018 Oxycodone-Acetaminophen 1 TA BLET tablet Discontinued 1 - 2 {tbl} PO EVERY 4 HOURS NEEDED as needed for Pain September 08, 2015 12:00am January 08, 2018 4:11pm Start: 09-08-2015 End: 01-08-2018 take 1 tablet [...] as needed for severe pain (7-10). Active albuterol 0.83 mg/ml inhalat ion solution (20 sources) beta2-Adrenergic Agonist Start: 11-25-2024 Start: 11-13-2024 albuterol 2.5 mg /3 mL (0.083 %) nebulizer solution Indications: ILD (interstitial lung disease) (Multi) Take 3 mL (2.5 mg) by nebulization every 4 hours if needed for wheezing or shortness of breath. 360 mL 5 11/13/2024 Active Start: 06-03-2024 take 2 puff(s) by mo uth every four hours as needed for wheezing albuterol 90 mcg/actuation inhaler INHALE 2 PUFFS BY MOUTH EVERY 4 HOURS NEEDED FOR SHORTNESS OF BREATH OR WHEEZING 06/03/2024 Active Start: 02-06-2024 End: 04-30-2024 Start: 02-06-2024 End: 04-30-2024 Albuterol Sulfate (Ventolin Hfa) 90 mcg/actuation HFA aerosol inhaler Discontinued 2 NMA INHALATION Q4H as needed for shortness of breath or wheezing 18 February 06, 2024 1:00am April 30, 2024 2:31pm Start: 10-15-2018 End: 06-26-2019 Start: 10-15-2018 End: 06-26-2019 Albuterol Sulfate 1 INHALER inhaler Discontinued 2 NMA INHALATION EVERY 4 HOURS NEEDED as needed for Wheezing 1 0 October 15, 2018 12:00am June 26, 2019 2:15pm Start: 10-15-2018 End: 06-26-2019 take 1 puff(s) by inhalation every four hours as needed Albuterol Sulfate Discontinued 2 PUFF INHALATION EVERY 4 HOURS NEEDED October 15, 2018 12:00am June 26, 2019 2:15pm amLODIPine 5 mg oral tablet (20 sources) Dihydropyridine Calcium Channel Renuka Start: 05-02-2023 End: 05-06-2024 Start: 02-27-2023 End: 04-25-2023 Start: 01-25-2022 take 10 mg by mouth once daily Amlodipine Active 10 MG PO DAILY January 25, 2022 12:00am Start: 09-12-2021 End: 01-25-2022 Start: 09-07-2021 End: 09-12-2021 Start: 07-18-2021 take 2.5 mg by mouth once zach y Amlodipine Active 2.5 MG PO DAILY July 18, 2021 11:03am Start: 05-03-2015 End: 01-08-2018 aspirin 81 mg chewable tablet (20 sources) Platelet Aggregation Inhibitor, Nonsteroidal Anti-inflammatory Drug Start: 11-28-2024 Start: 05-06-2024 End: 05-07-2024 take 81 mg by mouth once daily 81 mg, Oral, Daily, Fir st dose on Sat05/06/24 at 1100, Do not crush, chew, or split. Start: 11-27-2023 End: 11-28-2024 Start: 10-06-2023 End: 10-05-2023 take 1 tablet by mouth once daily aspirin 81 MG EC tablet Take 1 tablet (81 mg) by mouth daily. 30 tablet 10/06/2023 10/05/2023 Discontinued Start: 10-04-2023 End: 11-05-2023 aspirin 81 MG EC tablet Take 1 tablet (81 mg) by mouth daily. Do not start before October 06, 2023. 30 tablet 10/06/2023 11/05/2023 Active Start: 03-30-2020 End: 05-06-2024 Start: 11-03-2018 End: 03-30-2020 Start: 10-15-2018 End: 11-03-2018 Aspirin 81 MG tablet,chewabl e Discontinued 325 mg PO DAILY@0800 October 15, 2018 1:44pm November 03, 2018 2:50pm Start: 10-15-2018 End: 11-03-2018 take 325 mg by mouth once daily Aspirin Discontinued 3 25 MG PO DAILY@0800 October 15, 2018 1:44pm November 03, 2018 2:50pm Start: 04-19-2018 End: 11-03-2018 Start: 01-08-2018 End: 01-08-2018 Start: 05-03-2015 End: 09-09-2015 augmented betamethasone 0.5 mg/ml topical lotion (20 sources) Corticosteroid Start: 08-13-2023 betamethasone, augmented, (Diprolene) 0.05 % lotion 08/13/2023 Active Start: 08-13-2023 betamethasone, augmented, (Diprolene) 0.05 % lotion APPLY TO RASH ON THE TRUNK OR SCALP 1-2 TIMES DAILY NEEDED 08/13/2023 Active bismuth subsalicylate 262 mg chewable tablet (16 sources) Bismuth Start: 04-02-2024 bismuth subsal icylate (Pepto Bismol) 262 mg chewable tablet 04/02/2024 Active Start: 04-02-2024 take 2 tablets by mo uth three times daily bismuth subsalicylate (Pepto Bismol) [...] 24 hrs Blood-Glucose Meter,Continuo us (Dexcom G6 Rn Clinical) misc (20 sources) Start: 07-26-2020 Blood-Glucose Meter,Continuous (Dexcom G6 Rn Clinical) misc Active 0 .ROUTE .MEDSUPPLY July 26, 2020 12:36pm As directed Start: 07-26-2020 Blood-Glucose Meter,Continuous (Dexcom G6 Rn Clinical) misc Active 0 .ROUTE .MEDSUPPLY July 25, 2020 11:00pm As directed Start: 07-26-2020 Blood-Glucose Meter,Continuous (Dexcom G6 Rn Clinical) misc Active 0 .ROUTE .MEDSUPPLY 1 July 26, 2020 12:00am As directed Blood-Glucose Sensor (Dexcom G6 Sensor) device (20 sources) Start: 02-25-2023 Blood-Glucose Sensor (Dexcom G6 Sensor) device Active 0 .ROUTE .MEDSUPPLY 1 February 25, 2023 12:46pm Diabetes mellitus 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 As directed [...] mellitus 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 with hyperglycemia 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 As directed Start: [...] G6 Sensor) device Active 0 .ROUTE .MEDSUPPLY December 29, 2021 12:58pm As directed Start: 12-29-2021 Blood-Glucose Sensor (Dexcom G6 Sensor) device Active 0 .ROUTE .MEDSUPPLY December 29, 2021 11:58am As directed Start: 06-01-2021 End: 12-29-2021 Blood-Glucose Sensor (Dexcom G6 Sensor) device Discontinued 0 .ROUTE .MEDSUPPLY 3 June 01, 2021 2:53pm December 29, 2021 12:58pm Diabetes mellitus 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 with hyperglycemia 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 As directed Start: [...] mellitus 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 with hyperglycemia USP (current) use of insulin As directed Start: [...] device Discontinued 0 .ROUTE .MEDSUPPLY 3 July 25, 2020 11:00pm February 02, 2021 12:58pm As directed Start: 07-26-2020 End: 02-02-2021 Blood-Glucose Sensor (Dexcom G6 Sensor) device Discontinued 0 .ROUTE .MEDSUPPLY 3 July 26, 2020 12:00am February 02, 2021 1:58pm As directed Blood-Glucose Transmitter (Dexcom G6 Transmitter) device (20 sources) Start: 12-29-2021 Blood-Glucose Transmitter (Dexcom G6 Transmitter) device Active 0 .ROUTE .MEDSUPPLY 1 3 December 29, 2021 12:58pm dm As directed Start: 12-29-2021 Blood-Glucose Transmitter (Dexcom G6 Transmitter) device Active 0 .ROUTE .MEDSUPPLY 1 December 29, 2021 12:58pm As directed Start: 12-29-2021 Blood-Glucose Transmitter (Dexcom G6 Transmitter) device Active 0 .ROUTE .MEDSUPPLY 1 December 29, 2021 11:58am As directed Start: 06-01-2021 End: 12-29-2021 Blood-Glucose Transmitter (D excom G6 Transmitter) device Discontinued 0 .ROUTE .MEDSUPPLY 1 3 June 01, 2021 3:34pm December 29, 2021 [...] G6 Transmitter) device Active 0 .ROUTE .MEDSUPPLY June 01, 2021 3:34pm As directed Start: [...] 12:00am June 01, 2021 3:34pm As directed Blood-Glucose,Rn Clinical,Cont (Dexcom G6 Rn Clinical) misc (3 sources) Start: 07-26-2020 Blood-Glucose,Rn Clinical,Cont (Dexcom G6 Rn Clinical) misc Active 0 .ROUTE .MEDSUPPLY 1 0 July 26, 2020 12:00am dm As directed Start: 07-26-2020 Blood-Glucose, Rn Clinical,Cont (Dexcom G6 Rn Clinical) misc Active 0 .ROUTE .MEDSUPPLY 1 July 26, 2020 12:00am As directed busPIRone hydrochloride 10 m g oral tablet (20 sources) Start: 04-17-2018 End: 09-16-2024 Start: 05-03-2015 End: 01-08-2018 Start: 05-03-2015 End: 01-08-2018 Start: 11-09-2008 End: 11-04-2023 take 1 tablet by mouth three times daily busPIRone (Buspar) 10 MG tablet Take 1 tablet (10 mg) by mouth 3 times daily. 90 tablet 10/05/2023 Active Comment on above: Take one(1) tablet t hree times daily by mouth as necessary cephalexin 500 mg oral capsule (3 sources) Cephalosporin Antibacterial Start: 11-29-19 Continuous Glucose Sensor (Dexcom G6 Sensor) misc (20 sources) Start: 10-01-19 Continuous Glucose Sensor (Dexcom [...] daily. 10/06/2023 Active Dexcom G6 Sensor device (13 sources) Start: 02-01-2024 Dexcom G6 Sens or device USE DIRECTED FOR CONTINUOUS BLOOD GLUCOSE MONITORING, CHANGE SENSOR EVERY 10 DAYS 02/01/2024 Active Dexcom G6 Sensor Mis (1 source) Start: 10-01-2023 Dexcom G6 Sens or Mis Dexcom G6 Sensor Mis, USE DIRECTED FOR CONTINUOUS BLOOD GLUCOSE MONITORING, CHANGE SENSOR EVERY 10 DAYS Start Date: 10/01/23 Status: Ordered doxycycline monohydrate 100 mg oral tablet (20 sources) Tetracycline-clas s Drug Start: 11-28-2024 Start: 06-10-2023 take 1 capsule by [facility] twice daily doxycycline (Vibramycin) 100 MG capsule Take 100 mg by mouth 2 times daily. 06/10/2023 Active Start: 12-12-2022 take 150 mg by mouth twice daily Doxycycline Monohydrate Active 150 MG PO TWICE A DAY December 12, 2022 12:00am Start: 12-10-2022 End: 12-12-2022 Start: 07-22-2020 End: 10-13-2020 Start: 07-22-2020 End: 10-13-2020 Doxycycline Monohydrate 100 mg tablet Discontinued NMA PO July 22, 2020 12:00am October 13, 2020 3:54pm Start: 07-22-2020 End: 10-13-2020 Doxycycline Monohydrate Disc [...] capsule 10/06/2023 Active Start: 04-17-2018 End: 11-05-2023 Start: 11-09-2008 End: 01-08-2018 Comment on above: Take one(1) tablet d aily by mouth ergocalciferol 1.25 mg oral capsule (20 sources) Provitamin D2 Compound Start: 04-05-2023 ergocalciferol (Vitamin D-2) 1250 mcg (50,000 units) capsule Take 1 capsule (1.25 mg) by mouth. 04/05/2023 Active Start: 04-05-2023 take 1 capsule by mo uth every week ergocalciferol (Vitamin D2) 1.25 MG (39974 UT) capsule Take 1 capsule by mouth 1 (one) time per week. 04/05/2023 Active Start: 04-05-2023 ergocalciferol (Vitamin D-2) 1250 mcg (50,000 units) capsule Take 1 capsule (1,250 mcg) by mouth. 04/05/2023 Active fenofibrate 54 mg oral table t (20 sources) Peroxisome Proliferator Receptor alpha Agonist Start: 10-27-2024 Start: 08-19-2024 End: 10-27-2024 Start: 08-17-2024 End: 08-19-2024 Start: 10-14-2023 End: 08-17-2024 ferrous sulfate 325 mg oral tablet (3 sources) Start: 03-02-2024 take 1 tablet by mouth once daily Ferrous Sulfate (Feosol) 325 mg (65 mg iron) tablet Active 325 mg PO DAILY March 02, 2024 1:00am anemia furosemide 40 mg oral tablet (20 sources) Loop Diuretic Start: 06-20-2021 End: 12-08-2024 Start: 06-20-2021 End: 06-23-2024 take 1 tablet by mouth once daily Furosemide (Lasix) 40 mg tablet Discontinued 40 mg PO DAILY 180 May 11, 2022 5:57pm August 01, 2022 9:59pm Start: 10-13-2020 End: 10-19-2020 Start: 10-13-2020 End: 10-19-2020 take 1 tablet by mouth every other day Furosemide (Lasix) 40 mg tablet Discontinued 40 mg PO every other day 3 0 October 13, 2020 12:00am October 19, 2020 1:17pm Start: 05-03-2015 End: 01-08-2018 Start: 05-03-2015 End: 01-08-2018 take 1 tablet by mouth once daily Furosemide 40 MG tablet Discontinued 40 mg PO DAILY May 03, 2015 1:00am January 08, 2018 4:39pm glipiZIDE 5 mg oral tablet (20 sources) Sulfonylurea Start: 10-06-2023 End: 10-05-2023 glipiZIDE (Glucotrol) 5 mg tablet Take 1 tablet (5 mg) by mouth. 10/06/2023 Active Start: 10-04-2023 End: 11-05-2023 glipiZIDE (Glucotrol) 5 mg t ablet Take 1 tablet (5 mg) by mouth. 10/06/2023 Active Start: 05-03-2015 End: 09-09-2015 Infusion Set For Insulin Pum p (14 [...] 0, Conc, Insulin 500 unit/mL CONCENTRATED injection 05/30/2024 Active Start: 05-30-2024 HumuLIN R U-50 0, Conc, [...] 10/02/23 Status: Ordered Start: 09-03-2022 End: 11-11-2023 ipratropium bromide 0.042 mg/actuat metered dose nasal spray (1 source) Anticholinergic Start: 11-05-2024 take 2 spray(s) nasal route three times daily as needed ipratropium (Atrovent) 42 mcg (0.06 %) nasal spray USE 2 SPRAYS NASALLY 3 TIMES A DAY NEEDED 11/05/2024 Active levoFLOXacin 500 mg oral tablet (20 sources) [...] 07/14/2024 07/21/2024 Active Start: 10-15-2018 End: 11-03-2018 levothyroxine sodium 0.125 m g oral tablet (20 sources) l-Thyroxine Start: 11-25-2024 Start: 04-24-2024 End: 11-25-2024 Start: 10-06-2023 End: 10-05-2023 levothyroxine (Synthroid, Le [...] Date: 10/01/23 Status: Ordered Start: 05-03-2015 End: 04-24-2024 Start: 05-03-2015 End: 04-24-2024 Start: 07-02-2005 take 1 tablet by ned th once daily LEVOXYL 100 MCG TAB Take one(1) tablet daily by mouth 0 07/02/2005 Active Comment on above: Take one(1) tablet d aily by mouth lisinopril 40 mg oral tablet (20 sources) Angiotensin Converting Enzyme Inhibitor Start: 04-07-2024 End: 04-12-2024 Start: 10-17-2023 End: 04-07-2024 Start: 10-17-2023 End: 04-07-2024 take 1 tablet by mouth once daily Lisinopril 20 mg tablet Discontinued 20 mg PO DAILY 90 0 October 17, 2023 2:08pm November 13, 2023 7:43pm Start: 10-17-2023 End: 10-17-2023 Start: 01-08-2018 End: 08-01-2022 Start: 01-08-2018 End: 08-01-2022 take 1 tablet by mouth twice daily Lisinopril 40 mg tablet Discontinued 40 mg PO TWICE A DAY 180 3 January 23, 2022 8:35am August 01, 2022 9:59pm blood pressure Start: 05-03-2015 End: 01-08-2018 Start: 06-29-2005 End: 01-08-2018 take 1 tablet by mouth once daily Lisinopril 20 MG tablet Discontinued 20 mg PO DAILY May 03, 2015 1:00am January 08, 2018 4:38pm Comment on above: Take one(1) tablet d aily by mouth 24 hr metoprolol succinate 1 00 mg extended release oral tablet (20 sources) beta-Adrenergic Renuka Start: 03-27-2024 Start: 10-06-2023 End: 10-05-2023 metoprolol succinate XL [...] 10/01/23 Status: Ordered Start: 04-07-2020 End: 03-27-2024 Pen Needle, Diabetic (20 sources) Start: 12-22-2020 Pen Needle, Di abetic Active 0 EACH .ROUTE .MEDSUPPLY 1200 December 22, 2020 2:22pm As directed Start: 12-22-2020 Pen Needle, Di abetic Active 0 EACH .ROUTE .MEDSUPPLY 1200 December 21, 2020 11:00pm As directed Start: 12-22-2020 Pen Needle, Di abetic Active 0 EACH .ROUTE .MEDSUPPLY 1200 December 22, 2020 12:00am As directed predniSONE 10 mg oral tablet (20 sources) Start: 11-28-2024 Start: 09-16-2024 Prednisone 5 m g tablet Active 0 PO .COMPLEX September 16, 2024 12:00am Prednisone Burst orally; Start: 08-07-2024 End: 01-31-2025 Start: 06-10-2024 take 0.5 tablet by m outh in the morning predniSONE (Deltasone) 20 mg tablet Take 0.5 tablets (10 mg) by mouth early in the morning.. 06/10/2024 Active Start: 04-15-2024 End: 09-16-2024 Start: 04-15-2024 End: 09-16-2024 rosuvastatin calcium 40 mg oral tablet (9 sources) HMG-CoA Reductase Inhibitor Start: 10-27-2024 take 1 tablet by mouth in the morning rosuvastatin (Crestor) 40 mg tablet Take 1 tablet (40 mg) by mouth early in the morning.. 10/27/2024 Active Start: 10-27-2024 tamsulosin hydrochloride 0.4 mg oral capsule (20 [...] 10/06/2023 10/05/2023 Discontinued Start: 09-08-2015 End: 11-05-2023 ticagrelor 90 mg oral tablet (20 sources) Start: 05-08-2024 End: 11-02-2025 traMADol hydrochloride 50 mg oral tablet (20 sources) Opioid Agonist Start: 12-10-2022 traMADol (Ultr am) 50 mg tablet Take 1 tablet (50 mg) by mouth. 12/10/2022 Active (20 sources) Start: 11-25-2024 Start: 04-02-2024 End: 04-16-2024 Start: 03-02-2024 Start: 01-22-2024 End: 02-03-2024 Start: 02-25-2023 Start: 10-08-2022 Start: 12-29-2021 Start: 12-29-2021 End: 02-25-2023 Start: 06-01-2021 End: 12-29-2021 Start: 06-01-2021 End: 12-29-2021 Start: 06-01-2021 End: 04-30-2024 Start: 02-02-2021 End: 06-01-2021 Start: 12-22-2020 End: 04-30-2024 Start: 07-26-2020 Start: 07-26-2020 End: 02-02-2021 Start: 07-26-2020 End: 06-01-2021 Completed/Discontinued Medications Medication Drug Class(es) Dates Sig (Normalized) Sig (Original) acetaminophen 325 mg / HYDROcodone bitartrate 5 mg oral tablet (20 sources) Opioid Agonist Start: 02-14-2023 End: 05-06-2024 HYDROcodone-acetami nophen (Gifford) 5-325 MG tablet Take 1 tablet by mouth 2-3 times daily as needed for pain 02/14/2023 05/06/2024 Discontinued (Other) Start: 02-14-2023 End: 09-16-2024 Start: 02-14-2023 End: 09-16-2024 Hydrocodone-Acetaminophen 5- 325 mg tablet Discontinued 1 {tbl} PO TWICE A DAY as needed for pain 0 February 14, 2023 1:00am September 16, 2024 10:07am Start: 02-14-2023 take 1 tablet by ned twice daily Hydrocodone-Acetaminophen Active 1 TABLET PO TWICE A DAY February 14, 2023 1:00am ALPRAZolam 0.5 mg disintegrating oral tablet (2 sources) Benzodiazepine Start: 05-06-2024 End: 05-06-2024 take 1 tablet by mouth once 0.5 mg, Oral, Once, On Sat05/06/24 at 1100, For 1 dose, Using dry hands, place tablet on top of tongue and allow to disintegrate. Administration with water is not necessary. amoxicillin 500 mg oral capsule (17 sources) Penicillin-class Antibacterial Start: 04-02-2024 End: 04-15-2024 apixaban 5 mg oral tablet (20 sources) Factor Xa Inhibitor Start: 03-30-2020 End: 08-31-2024 atenolol 100 mg oral tablet (20 sources) beta-Adrenergic Renuka Start: 05-03-2015 End: 04-07-2020 Start: 07-02-2005 End: 04-07-2020 take 1 tablet by mouth once daily Atenolol 100 mg tablet Discontinued 100 mg PO DAILY 90 3 January 12, 2019 8:53am April 07, 2020 3:54pm blood pressure Comment on above: Take one(1) tablet d aily by mouth atorvastatin 80 mg oral tabl et (20 sources) HMG-CoA Reductase Inhibitor Start: 04-19-2018 End: 10-27-2024 cholecalciferol 9.52 unt/ml / glucose 357 mg/ml oral gel (2 sources) Vitamin D Start: 10-03-2023 End: 10-05-2023 clarithromycin 500 mg oral t ablet (17 sources) Macrolide Antimicrobial Start: 04-02-2024 End: 04-15-2024 clopidogrel 75 mg oral table t (20 sources) P2Y12 Platelet Inhibitor Start: 11-14-2023 End: 05-21-2024 Start: 04-19-2018 End: 11-03-2018 12 hr dextromethorphan hydrobromide 60 mg / guaiFENesin 1200 mg extended release oral tablet (20 sources) Uncompetitive Y-umdeyy-T-aspartate Receptor Antagonist, Sigma-1 Agonist Start: 04-24-2024 End: 04-30-2024 Dextromethorphan-Guaifenesin 60-1,200 mg tablet extended release 12 hr Discontinued 1 {tbl} PO DAILY April 24, 2024 1:00am April 30, 2024 3:23pm cough Start: 04-15-2024 take 1 tablet by ned th every twelve hours Mucinex DM 60-1,200 mg tablet extended release 12 hr Take 1 tablet by mouth every 12 hours. 04/15/2024 Active Start: 04-15-2024 End: 04-30-2024 Start: 04-15-2024 End: 04-24-2024 Dextromethorphan-Guaifenesin 60-1,200 mg tablet extended release 12 hr Discontinued 1 {tbl} PO TWICE A DAY 14 7 0 April 15, 2024 1:00am April 24, 2024 8:28pm 24 hr dilTIAZem hydrochloride 120 mg extended release oral capsule (20 sources) Calcium Channel Renuka Start: 05-07-2023 End: 05-06-2024 take 1 capsule by mouth once daily, then take 1 capsule by mouth every twenty-four hours dilTIAZem CD (Cardizem CD) 120 MG 24 hr capsule Take 120 mg by mouth daily. 05/07/2023 05/06/2024 Discontinued (Other) Start: 04-25-2023 End: 05-02-2023 docusate sodium 50 mg oral c apsule (20 sources) Start: 09-08-2015 End: 01-08-2018 Start: 09-08-2015 End: 01-08-2018 0.5 ml dulaglutide 1.5 mg/ml auto-injector (20 sources) GLP-1 Receptor Agonist Start: 06-01-2021 End: 07-12-2021 Start: 06-01-2021 End: 07-12-2021 Dulaglutide (Trulicity) 0.75 mg/0.5 mL pen injector Discontinued 0.75 mg SC EVERY WEEK 2 June 01, 2021 1:00am July 12, 2021 3:46pm not started yet Start: 02-02-2021 End: 06-01-2021 Dulaglutide (Trulicity) 3 [...] 01, 2021 3:00pm Start: 12-22-2020 End: 02-02-2021 Start: 12-22-2020 End: 02-02-2021 Dulaglutide (Trulicity) 1.5 mg/0.5 mL pen injector Discontinued 1.5 mg SC EVERY WEEK 6 December 22, 2020 12:00am February 02, 2021 1:55pm Start: 07-22-2020 End: 12-22-2020 Start: 07-22-2020 End: 12-22-2020 Dulaglutide (Trulicity) 0.75 mg/0.5 mL pen injector Discontinued 0.75 mg SC EVERY WEEK 2 July 22, 2020 12:00am December 22, 2020 2:52pm empagliflozin 25 mg oral tab let (20 sources) Sodium-Glucose Cotransporter 2 Inhibitor Start: 12-10-2022 End: 08-12-2024 glimepiride 4 mg oral tablet (20 sources) Sulfonylurea Start: 02-27-2023 End: 11-26-2024 Start: 02-02-2021 End: 10-08-2022 take 1 tablet by mouth twice daily Glimepiride (Amaryl) 4 mg tablet Discontinued 4 mg PO TWICE A DAY 180 March 12, 2022 9:12am October 08, 2022 2:23pm Diabetes mellitus 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 with hyperglycemia USP (current) use of insulin Start: 07-22-2020 End: 10-08-2022 glucagon (rdna) 1 mg injecti on (2 [...] sources) Thiazide Diuretic Start: 01-08-2018 End: 06-20-2021 1.5 ml insulin glargine 300 unt/ml pen [...] pen Discontinued 50 U SC DAILY 4.5 3 April 03, 2022 9:05am August 01, 2022 9:59pm diabetes Start: 11-13-2021 End: 04-03-2022 Insulin Glargine U-300 Conc (Toujeo Solostar U-300 Insulin) 300 unit/mL (1.5 mL) insulin pen Discontinued 45 U SC DAILY November 13, 2021 3:32pm April 03, 2022 9:06am diabetes Start: 02-26-2021 End: 08-15-2022 Start: 02-26-2021 End: 11-13-2021 Insulin Glargine U-300 Conc (Toujeo Solostar U-300 Insulin) 300 unit/mL (1.5 mL) insulin pen Discontinued 55 U SC DAILY February 26, 2021 1:00am November 13, 2021 3:34pm diabetes Start: 10-13-2020 End: 12-22-2020 Insulin Glargine U-300 Conc 300 unit/mL (1.5 mL) insulin pen Discontinued 55 U SC DAILY October 13, 2020 3:54pm December 22, 2020 2:53pm diabetes Start: 04-13-2020 End: 10-13-2020 Insulin Glargine U-300 Conc 300 unit/mL (1.5 mL) insulin pen Discontinued 30 U SC TWICE A DAY April 13, 2020 11:07am October 13, 2020 3:55pm diabetes Start: 03-28-2020 End: 12-22-2020 insulin lispro 100 unt/ml in jectable solution (20 sources) Insulin Analog Start: 08-15-2022 End: 09-03-2022 Start: 08-15-2022 End: 09-03-2022 Insulin Lispro (Humalog U-10 0 Insulin) 100 unit/mL solution Discontinued 100 U continuous subcutaneous infusion .continuous 90 1 August 15, 2022 12:00am September 03, 2022 2:30pm Diabetes mellitus 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 with hyperglycemia USP (current) use of insulin Start: 08-01-2022 End: 09-03-2022 Insulin Lispro (Humalog [...] August 01, 2022 9:59pm Start: 11-13-2021 End: 09-03-2022 Start: 11-13-2021 End: 06-29-2022 Insulin Lispro (Humalog Kwik pen Insulin) 100 unit/mL insulin pen Discontinued 15 U SC before meals November 13, 2021 12:00am June 29, 2022 8:32am iopamidol (Isovue-300) 61 % injection 80 mL [...] Sat at 1331, Intraprocedure 24 hr metFORMIN hydrochlorid e 500 mg extended release oral tablet (20 sources) Biguanide Start: 10-15-2018 End: 11-13-2021 Start: 10-15-2018 End: 11-13-2021 Start: 10-15-2018 End: 10-13-2020 take 1 tablet by mouth at bedtime Metformin 500 MG tablet Discontinued 500 mg PO AT BEDTIME October 15, 2018 12:00am October 13, 2020 3:55pm diabetes Start: 10-15-2018 End: 11-13-2021 Start: 10-15-2018 End: 11-13-2021 take 1000 mg by mouth once daily Metformin Active 1000 MG PO DAILY November 13, 2021 3:33pm Start: 09-08-2015 End: 09-09-2015 End: 05-06-2024 take 1 tablet by mouth twice daily metFORMIN (Glucophage) 500 mg tablet Take 1 tablet (500 mg) by mouth 2 times daily (morning and late afternoon). Active metroNIDAZOLE 500 mg oral ta blet (17 sources) Nitroimidazole Antimicrobial Start: 04-02-2024 End: 04-15-2024 nintedanib 150 mg oral capsu le (17 sources) Kinase Inhibitor Start: 04-22-2024 End: 05-21-2024 pantoprazole 40 mg delayed r elease oral tablet (20 sources) Proton Pump Inhibitor Start: 05-03-2015 End: 07-22-2024 Start: 06-29-2005 End: 07-22-2024 take 1 tablet by mouth once daily Pantoprazole (Protonix) 40 mg tablet,delayed release (DR/EC) Discontinued 40 mg PO DAILY April 12, 2024 1:00am April 30, 2024 2:32pm acid reflux Comment on above: Take one(1) tablet d aily by mouth potassium chloride 10 meq extended release oral tablet (20 sources) Start: 06-20-2021 End: 05-11-2022 Start: 06-20-2021 End: 05-11-2022 potassium citrate 10 meq extended release oral tablet (20 sources) Start: 01-16-2023 End: 02-27-2023 SITagliptin 100 mg oral tablet (20 sources) Dipeptidyl Peptidase 4 Inhibitor Start: 01-08-2018 End: 07-22-2020 1000 ml sodium chloride 9 mg/ml injection [...] = 20 mL/lumen spironolactone 50 mg oral ta blet (20 sources) Aldosterone Antagonist Start: 05-21-2022 End: 05-21-2024 Start: 05-11-2022 End: 05-21-2022 Problems Active Problems Problem Classification Problem Date Documented Da te Episodic/Chronic Acute cerebrovascular disease (20 sources) Ischemic stroke; Translations: [Cerebral infarction, unspecified] Onset: 4 03-31-2023 Chronic Blindness and vision defects (20 sources) Diplopia; Translations: [Diplopia] Onset: 3 10-08-2022 Episodic Cardiac dysrhythmias (20 sources) Paroxysmal atrial fibrillation; Translations: [Paroxysmal atrial fibrillation] Onset: 0 Chronic Chronic kidney disease (20 sources) Chronic kidney disease; Translations: [Chronic kidney disease, unspecified] Onset: 3 12-10-2022 Chronic Chronic kidney disease (1 source) Chronic kidney disease; Translations: [Chronic kidney disease, stage 3a] Onset: 5 Chronic ulcer of skin (1 source) 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; Translations: [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] Onset: 5 Chronic Complications of surgical procedures or medical care [...] 0 07-12-2021 Chronic Deficiency and other anemia (20 sources) Iron deficiency anemia due to blood loss; Translations: [Iron deficiency anemia secondary to blood loss (chronic)] 03-12-2024 Chronic Deficiency and other anemia (1 source) Iron deficiency anemia secondary to blood loss (chronic); Translations: [Iron deficiency anemia secondary to blood loss (chronic)] Onset: 5 Chronic Deficiency and other anemia (17 sources) Anemia; Translations: [Anemia, unspecified] 03-27-2024 Episodic Deficiency and other anemia (2 sources) Anemia, unspecified; Translations: [Anemia, unspecified] Onset: 5 Episodic Diabetes mellitus with complications (20 sources) Hyperglycemia due to type 2 diabetes mellitus; Translations: [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 with hyperglycemia] Onset: 4 04-04-2020 Chronic Comment on above: both eyesmildexam Diabetes mellitus without complication (20 sources) 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; Translations: [Diabetes mellitus] Onset: 6 09-23-2015 Chronic Diseases of white blood cells (16 sources) Leukocytosis; Translations: [Elevated white blood cell count, unspecified] 04-12-2024 Chronic Disorders of lipid metabolism (20 sources) Hyperlipidemia; Translations: [Hyperlipidemia, unspecified] Onset: 4 Chronic Essential hypertension (20 sources) Hypertensive disorder; Translations: [Essential hypertension] Onset: 6 09-23-2015 Chronic Fluid and electrolyte disorders (20 sources) Lactic acidosis; Translations: [Acidosis] Onset: 4 Episodic Genitourinary congenital anomalies (20 sources) Multiple congenital cysts of kidney; Translations: [Cystic kidney disease, unspecified] Onset: 7 02-26-2007 Chronic Hodgkin`s disease (20 sources) Hodgkin's disease (clinical); Translations: [Hodgkin lymphoma, unspecified, unspecified site] Onset: 6 09-20-2015 Chronic Comment on above: chemo and radiation Hyperplasia of prostate (20 sources) Benign prostatic hypertrophy with outflow obstruction; [...] due to focal dissection/plaque projection Other aftercare (17 sources) Drug therapy finding; Translations: [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 software test engineer (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) use of anticoagulants] 03-05-2024 Episodic Other aftercare (20 sources) Long-term current use of anticoagulant; Translations: [USP (current) use of anticoagulants] 11-24-2023 Episodic Other aftercare (1 source) flight software test engineer (current) use of anticoagulants; Translations: [flight software test engineer (current) use of anticoagulants] Onset: 5 Episodic Other circulatory disease (20 sources) Carotid bruit; Translations: [Other specified symptoms and signs involving the circulatory and respiratory systems] Onset: 4 09-07-2021 Episodic Other circulatory disease (20 sources) Other specified symptoms and signs involving the circulatory and respiratory systems; Translations: [Other symptoms involving cardiovascular system] Episodic Other circulatory disease (20 sources) History of transient ischemic attack; Translations: [Personal history of transient ischemic attack (TIA), and cerebral infarction without residual deficits] 03-31-2023 Episodic Other circulatory disease (5 sources) Personal history of transient ischemic attack (TIA), and cerebral infarction without residual deficits; Translations: [Personal history of transient ischemic attack (TIA), and cerebral infarction without residual deficits] 03-12-2023 Episodic Other circulatory disease (17 sources) H/O: atrial fibrillation; Translations: [Personal history of other diseases of the circulatory system] 11-24-2023 Episodic Other connective tissue disease (17 sources) Weakness of face muscles; Translations: [Facial weakness] 11-24-2023 Episodic Other diseases of kidney and ureters (20 sources) Renal impairment; Translations: [Disorder of kidney and ureter, unspecified] 05-21-2024 Episodic Other gastrointestinal disorders (17 sources) Abdominal bloating; Translations: [Abdominal distension (gaseous)] [...] 3 04-25-2023 Episodic Other lower respiratory disease (17 sources) Hypoxemia; Translations: [Hypoxemia] 04-12-2024 Episodic Other lower respiratory disease (17 sources) Respiratory insufficiency; Translations: [Other abnormalities of breathing] 01-28-2024 Episodic Other lower respiratory disease (17 sources) Hypoxia; Translations: [Hypoxemia] 01-28-2024 Episodic Other nervous system disorders (20 sources) Neuropathy; Translations: [Polyneuropathy, unspecified] Onset: 4 02-04-2023 Chronic Other nervous system disorders (14 sources) Polyneuropathy, unspecified; Translations: [Mononeuritis of unspecified site] 02-04-2023 Chronic Other nervous system disorders (20 sources) Polyneuropathy; Translations: [Polyneuropathy, unspecified] Onset: 4 03-12-2023 Chronic Other nervous system disorders (20 sources) Cranial nerve disorder; Translations: [Cranial nerve disorder, unspecified] 03-31-2023 Episodic Other nervous system disorders (1 source) Paresthesia of skin; Translations: [Paresthesia of skin] Onset: 5 Episodic Other nutritional; endocrine; and metabolic disorders (20 sources) Morbid obesity; Translations: [Morbid (severe) obesity due to excess calories] Onset: 6 09-20-2015 Chronic Other nutritional; endocrine; and metabolic disorders (20 sources) Obesity; Translations: [Obesity, unspecified] 02-02-2021 Chronic Other nutritional; endocrine; and metabolic disorders (20 sources) Obesity, unspecified; Translations: [Obesity, unspecified] Chronic Other nutritional; endocrine; and metabolic disorders (20 sources) Body mass index 40+ - severely [...] Chronic Other nutritional; endocrine; and metabolic disorders (17 sources) H/O: diabetes mellitus; Translations: [Personal history of other endocrine, nutritional and metabolic disease] 11-24-2023 Episodic Other screening for suspected conditions (not mental disorders or infectious disease) (20 sources) Decreased testosterone level ; Translations: [Other specified abnormal findings of blood chemistry] Onset: 3 07-05-2022 Episodic Peripheral and visceral atherosclerosis (17 sources) Arteriosclerotic vascular disease; Translations: [Unspecified atherosclerosis] 11-24-2023 Chronic Pleurisy; pneumothorax; pulmonary collapse (20 sources) Pleural effusion; Translations: [Pleural effusion, not elsewhere classified] Onset: 6 09-23-2015 Episodic Pulmonary heart disease (8 sources) Pulmonary hypertension; Translations: [Pulmonary hypertension, unspecified] Onset: 5 07-09-2024 Chronic Residual codes; unclassified (20 sources) Obstructive sleep apnea syndrome; Translations: [Obstructive sleep apnea (adult) (pediatric)] Onset: 4 07-13-2021 Chronic Residual codes; unclassified (18 sources) Obstructive sleep apnea (adult) (pediatric); Translations: [Obstructive sleep apnea (adult)(pediatric)] Onset: 4 Chronic Residual codes; unclassified (20 sources) Sleep apnea; Translations: [Sleep apnea, unspecified] 03-23-2024 Chronic Residual codes; unclassified (1 source) Device in situ; Translations: [Mechanical venous thromboembolism (VTE) prophylaxis in place] Onset: 6 09-21-2015 Respiratory failure; insufficiency; arrest (adult) (20 sources) Chronic hypoxemic respiratory failure; Translations: [Chronic respiratory failure with hypoxia] Onset: 4 06-12-2022 Chronic Septicemia (except in labor) (9 sources) Sepsis; Translations: [Sepsis, unspecified organism] Onset: 5 11-26-2024 Episodic Skin and subcutaneous tissue infections (9 sources) Cellulitis; Translations: [Cellulitis, unspecified] Onset: 5 11-26-2024 Episodic Syncope (20 sources) Near syncope; Translations: [...] Date Documented Da te Episodic/Chronic Abdominal pain (20 sources) Left flank pain; Translations: [Unspecified abdominal pain] Onset: 07-04-2015 07-04-2015 Episodic Calculus of urinary tract (20 sources) Kidney stone; Translations: [Calculus of kidney] Onset: 09-09-2006 09-09-2006 Episodic Cardiac dysrhythmias (20 sources) Palpitations; Translations: [Palpitations] Onset: 01-02-2024 03-06-2021 Episodic Diabetes mellitus without complication (20 sources) Insulin pump present; Translations: [Presence of insulin pump (external) (internal)] Onset: 01-02-2024 09-03-2022 Episodic Genitourinary symptoms and ill-defined conditions (20 sources) Microalbuminuria; Translations: [Proteinuria, unspecified] Onset: 12-10-2022 12-10-2022 Episodic Immunizations and screening for infectious disease (20 sources) Rheumatoid factor positive; Translations: [Other specified abnormal immunological findings in serum] Onset: 03-23-2024 05-01-2024 Episodic Nonmalignant breast conditions (20 sources) Breast lump; Translations: [Unspecified lump in unspecified breast] Onset: 05-30-2007 05-30-2007 Episodic Other aftercare (1 source) 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; Translations: [USP (current) use of insulin] Onset: 09-16-2024 Episodic Other connective tissue disease (1 source) Facial weakness; Translations: [Facial weakness] Onset: 07-31-2024 Episodic Other gastrointestinal disorders (1 source) Abdominal distension (gaseous); Translations: [Abdominal distension (gaseous)] Onset: 02-18-2024 Episodic Other lower respiratory disease (1 source) Disorder of lung; Translations: [Other diseases of lung, not elsewhere classified] Onset: 02-26-2007 02-26-2007 Episodic Other lower respiratory disease (13 sources) Dyspnea, unspecified; Translations: [Other respiratory abnormalities] Onset: 06-18-2024 Episodic Other lower respiratory disease (2 sources) Shortness of breath; Translations: [Shortness of breath] Onset: 04-30-2024 Episodic Other lower respiratory disease (1 source) Hypoxemia; Translations: [Hypoxemia] Onset: 03-26-2024 Episodic Other lower respiratory disease (1 source) Other abnormalities of breathing; Translations: [Other abnormalities of breathing] Onset: 01-22-2024 Episodic Other nervous system disorders (20 sources) Acute postoperative pain; Translations: [Other acute postprocedural pain] Onset: 09-20-2015 09-23-2015 Episodic Pneumonia (except that caused by tuberculosis or sexually transmitted disease) (19 sources) Pneumonia; Translations: [Pneumonia, unspecified organism] Onset: 01-22-2024 01-28-2024 Episodic Respiratory failure; insufficiency; arrest (adult) (20 sources) Acute respiratory failure; Translations: [Acute respiratory failure with hypoxia] Onset: 01-02-2024 Episodic Unclassified (8 sources) Onset: 08-07-2024 08-07-2024 Results Test Name Value Interpretation Reference Range Facility Wound Ctr History AND Physic [email or web address] 12-17-2024 Wound Ctr History & Physical Normal [facility] 36on 12-11-2024 36 Returning call to patient. They said that their insurance will stop paying for Brilinta January 30 2025. I called to see if they knew if they will cover the generic version or not. No answer [facility] Absolute lymphocyte countOrd ered By: Rito Lundberg on 12-09-2024 Lymphocytes Auto (Unsp spec) [#/Vol] 0.88 10*3/uL 0.83-4.51 [facility] Automated lymphocyte count a s percentage of total leukocytesOrdered By: Rito Lundberg on 12-09-2024 Lymphocytes/100 WBC Auto (Unsp spec) 5.1 % Low 19-41 [facility] Basophil percentageOrdered B y: Rito Lundberg on 12-09-2024 Basophils/100 WBC (Bld) 0.6 % 0-1 [facility] CBC W/Diff, Automatedon 11-30 Absolute Lymph 0.88 X10 3/uL Normal 0.83-4.51 [facility] Comment on above: Performed By: #### L 503.6550, L100.0100, L503.6030 ####[facility] [id number] [place], [address] Absolute Neut 15.0 X10 3/uL High 2.0-7.7 [facility] Comment on above: Performed By: #### L [id number], L100.0100, L503.6030 ####[facility] [id number] [place], [address] Basophils/100 WBC (Bld) 0.6 % Normal 0-1 [facility] Comment on above: Performed By: #### L 503.6550, L100.0100, L503.6030 ####[facility] [id number] [place], [address] Eosinophils/100 WBC (Bld) 0.3 % Normal 0-5 [facility] Comment on above: Performed By: #### L 503.6550, L100.0100, [id number] ####[facility] [id number] [place], [address] Erythrocyte distribution width (RBC) [Ratio] 19.0 % High 11.6-14.6 [facility] Comment on above: Performed By: #### L 503.6550, L100.0100, [id number] ####[facility] [id number] [place], [address] Hematocrit (Bld) [Volume fraction] 31.2 % Low 40-54 [facility] Comment on above: Performed By: #### L 503.6550, L100.0100, [id number] ####[facility] [id number] [place], [address] Hemoglobin (Bld) [Mass/Vol] 9.6 g/dL Low 13.0-16.5 [facility] Comment on above: Performed By: #### L 503.6550, L100.0100, [id number] ####[facility] [id number] [place], [address] IG% 2.800 High 0.0-0.9 [facility] Comment on above: Result Comment: IG% - Immature Granulocytes (promyelocytes, myelocytes andmetamyelocytes) > 1% indicates that a LEFT SHIFT is Present. Performed By: #### L 503.6550, L100.0100, L503.6030 ####[facility] [id number] [place], [address] Lymphocytes/100 WBC (Bld) 5.1 % Low 19-41 [facility] Comment on above: Performed By: #### L 503.6550, L100.0100, L503.6030 ####[facility] [address] [place], [address] MCH (RBC) [Entitic mass] 24.3 pg Low 27.0-32.0 [facility] Comment on above: Performed By: #### L 503.6550, L100.0100, [id number] ####[facility] [address] [place], [address] MCHC (RBC) [Mass/Vol] 30.8 g/dL Low 32-36 [facility] Comment on above: Performed By: #### L 503.6550, L100.0100, [id number] ####[facility] [id number] [place], [address] MCV (RBC) [Entitic vol] 79.0 fL Low 80-94 [facility] Comment on above: Performed By: #### L 503.6550, L100.0100, [id number] ####[facility] [address] [place], [address] Monocytes/100 WBC (Bld) 4.9 % Normal 0-10 [facility] Comment on above: Performed By: #### L 503.6550, L100.0100, [id number] ####[facility] [address] [place], [address] Neutrophils/100 WBC (Bld) 86.3 % High 47-70 [facility] Comment on above: Performed By: #### L 503.6550, L100.0100, [id number] ####[facility] [id number] [place], [address] Nucleated RBC (Bld) [#/Vol] 0 10*3/uL Normal 0-5 [facility] Comment on above: Performed By: #### L 503.6550, L100.0100, [id number] ####[facility] [address] [place], [address] Platelet mean volume (Bld) [Entitic vol] 10.3 fL Normal 6.2-12.0 [facility] Comment on above: Performed By: #### L 503.6550, L100.0100, [id number] ####[facility] [id number] [place], [address] Platelets (Bld) [#/Vol] 275 10*3/uL Normal 150-450 [facility] Comment on above: Performed By: #### L 503.6550, L100.0100, [id number] ####[facility] [address] [place], [address] RBC (Bld) [#/Vol] 3.95 10*6/uL Low 4.6-6.2 [facility] Comment on above: Performed By: #### L 503.6550, L100.0100, [id number] ####[facility] [address] [place], [address] RDW SD 52.8 fl High 35.1-43.9 [facility] Comment on above: Performed By: #### L 503.6550, L100.0100, [id number] ####[facility] [address] [place], [address] WBC (Bld) [#/Vol] 17.3 10*3/uL High 4.4-11.0 [facility] Comment on above: Performed By: #### L 503.6550, L100.0100, L503.6030 ####[facility] [address] [place], [address] Eosinophil percentageOrdered By: Rito Lundberg on 12-09-2024 Eosinophils/100 WBC (Bld) 0.3 % 0-5 [facility] Erythrocyte distribution wid th ratioOrdered By: Rito Amayatristin on 12-09-2024 Erythrocyte distribution width (RBC) [Ratio] 19.0 % High 11.6-14.6 [facility] Erythrocyte distribution wid th standard deviationOrdered By: [facility] Hospital[facility] Amayatristin on 12-09-2024 Erythrocyte distribution width (RBC) [Ratio] 52.8 fl High 35.1-43.9 [facility] Ferritinon 12-09-2024 Ferritin [Mass/Vol] 237 ng/mL Normal 37-417 [facility] Comment on above: Performed By: #### L 503.6550, L100.0100, L503.6030 ####[facility] [address] [place], [place], [id number] Hematocrit Auto (Bld) [Volum e fraction]Ordered By: Hienearlene Lundberg on 12-09-2024 Hematocrit (Bld) [Volume fraction] 31.2 % Low 40-54 [facility] Hemoglobin measurementOrdere d By: [facility] Hospital[facility] Lund[facility] on 12-09-2024 Hemoglobin (Bld) [Mass/Vol] 9.6 g/dL Low 13.0-16.5 [facility] Immature granulocytes/100 WB C Auto (Bld)Ordered By: [facility] Hospital[facility]lene Lund[facility] on 12-09-2024 Immature granulocytes/100 WBC (Bld) 2.800 % High 0.0-0.9 [facility] Iron measurement (mass/mass) Ordered By: [facility] on 12-09-2024 Iron (Unsp spec) [Mass/Mass] 56 ug/dL Low 65-175 [facility] Iron+Iron Binding Capacityon 12-09-2024 Iron [Mass/Vol] 56 ug/dL Low 65-175 [facility] Comment on above: Performed By: #### L 503.6550, L100.0100, L503.6030 ####[facility] [address] [place], [address] IRON SATURATION 19.0 Normal 9-55 [facility] Comment on above: Performed By: #### L 503.6550, L100.0100, L503.6030 ####[facility] [address] [place], [address] TIBC 293 ug/dL Normal 250-450 [facility] Comment on above: Performed By: #### L 503.6550, L100.0100, L503.6030 ####[facility] [address] [place], [address] UIBC 237 ug/dL Normal 228-428 [facility] Comment on above: Performed By: #### L 503.6550, L100.0100, L503.6030 ####[facility] [address] [place], [address] MCV (mean corpuscular volume ) determinationOrdered By: Rito Lundberg on 12-09-2024 MCV (RBC) [Entitic vol] 79.0 fL Low 80-94 [facility] Mean corpuscular hemoglobin (MCH) determinationOrdered By: Rito Lundberg on 12-09-2024 MCH (RBC) [Entitic mass] 24.3 pg Low 27.0-32.0 [facility] Monocyte percentageOrdered B y: Rito Lundberg on 12-09-2024 Monocytes/100 WBC (Bld) 4.9 % 0-10 [facility] Neutrophil percentageOrdered By: Rito Lundberg on 12-09-2024 Neutrophils/100 WBC (Bld) 86.3 % High 47-70 [facility] No Panel InformationOrdered By: Rito Lundberg on 12-09-2024 237 ug/dL 228-428 [facility] Platelet countOrdered By: Chanell Lundberg on 12-09-2024 Platelets (Bld) [#/Vol] 275 10*3/uL 150-450 [facility] RBC Auto (Bld) [#/Vol]Ordere d By: Rito Lundberg on 12-09-2024 RBC (Bld) [#/Vol] 3.95 10*6/uL Low 4.6-6.2 [facility] Serum or plasma ferritin elizabeth surement (mass/volume)Ordered By: Rito Lundberg on 12-09-2024 Ferritin [Mass/Vol] 237 ng/mL 37-417 [facility] Serum or plasma iron saturat ion measurement (mass fraction)Ordered By: Rito Lundberg on 12-09-2024 Iron saturation [Mass fraction] 19.0 % 9-55 [facility] White blood cell (WBC) count Ordered By: Rito Lundberg on 12-09-2024 WBC (Bld) [#/Vol] 17.3 10*3/uL High 4.4-11.0 [facility] Culture, Blood (WB)on 2024 CUB Blood cultures x2, f rom two different sites No growth in 5 days. Normal [facility] Comment on above: Performed By: #### L 500.4050, L100.0100, M200.1000, L503.6005, L501.4021 ####[facility] [address] [place], [address] Basic Metabolic Profile (BMP )on 11-29-2024 BUN Normal 4-19 [facility] Comment on above: Result Comment: Canc elled via OM: Order cancelled - Patient discharged Performed By: #### L 100.0100, L500.2500 ####[facility] [id number] [place], [address] BUN/CRE Normal 10-20 [facility] Comment on above: Result Comment: Canc elled via OM: Order cancelled - Patient discharged Performed By: #### L 100.0100, L500.2500 ####[facility] [address] [place], [address] Calcium Normal 7.6-11.0 [facility] Comment on above: Result Comment: Canc elled via OM: Order cancelled - Patient discharged Performed By: #### L 100.0100, L500.2500 ####[facility] [address] [place], [address] CL Normal 98-108 [facility] Comment on above: Result Comment: Canc elled via OM: Order cancelled - Patient discharged Performed By: #### L 100.0100, L500.2500 ####[facility] [address] [place], [address] CO2 Normal 21.0-32.0 [facility] Comment on above: Result Comment: Canc elled via OM: Order cancelled - Patient discharged Performed By: #### L 100.0100, L500.2500 ####[facility] [address] [place], [address] CREAT,SERUM Normal 0.70-1.20 [facility] Comment on above: Result Comment: Canc elled via OM: Order cancelled - Patient discharged Performed By: #### L 100.0100, L500.2500 ####[facility] [address] [place], [address] eGFR Normal >60 [facility] Comment on above: Result Comment: Canc elled via OM: Order cancelled - Patient discharged Performed By: #### L 100.0100, L500.2500 ####[facility] [address] [place], [address] GAP Normal 5-15 [facility] Comment on above: Result Comment: Canc elled via OM: Order cancelled - Patient discharged Performed By: #### L 100.0100, L500.2500 ####[facility] [address] [place], [address] GLU Normal 70-99 [facility] Comment on above: Result Comment: Canc elled via OM: Order cancelled - Patient discharged Performed By: #### L 100.0100, L500.2500 ####[facility] [address] [place], [address] Potassium Normal 3.3-5.1 [facility] Comment on above: Result Comment: Canc elled via OM: Order cancelled - Patient discharged Performed By: #### L 100.0100, L500.2500 ####[facility] [address] [place], [address] Basic Metabolic Profile (BMP) Normal 133-145 [facility] Comment on above: Result Comment: Canc elled via OM: Order cancelled - Patient discharged Performed By: #### L 100.0100, L500.2500 ####[facility] [address] [place], [address] CBC W/Diff, Automatedon 08-3 Absolute Neut Normal 2.0-7.7 [facility] Comment on above: Result Comment: Canc elled via OM: Order cancelled - Patient discharged Performed By: #### L 100.0100, L500.2500 ####[facility] [address] [place], [address] HCT Normal 40-54 [facility] Comment on above: Result Comment: Canc elled via OM: Order cancelled - Patient discharged Performed By: #### L 100.0100, L500.2500 ####[facility] [address] [place], [address] HGB Normal 13.0-16.5 [facility] Comment on above: Result Comment: Canc elled via OM: Order cancelled - Patient discharged Performed By: #### L 100.0100, L500.2500 ####[facility] [address] [place], [address] MCH Normal 27.0-32.0 [facility] Comment on above: Result Comment: Canc elled via OM: Order cancelled - Patient discharged Performed By: #### L 100.0100, L500.2500 ####[facility] [address] [place], [address] MCHC Normal 32-36 [facility] Comment on above: Result Comment: Canc elled via OM: Order cancelled - Patient discharged Performed By: #### L 100.0100, L500.2500 ####[facility] [address] [place], [address] MCV Normal 80-94 [facility] Comment on above: Result Comment: Canc elled via OM: Order cancelled - Patient discharged Performed By: #### L 100.0100, L500.2500 ####[facility] [address] [place], [address] NEUT% Normal 47-70 [facility] Comment on above: Result Comment: Canc elled via OM: Order cancelled - Patient discharged Performed By: #### L 100.0100, L500.2500 ####[facility] [address] [place], [address] PLT Normal 150-450 [facility] Comment on above: Result Comment: Canc elled via OM: Order cancelled - Patient discharged Performed By: #### L 100.0100, L500.2500 ####[facility] [address] [place], [address] RBC Normal 4.6-6.2 [facility] Comment on above: Result Comment: Canc elled via OM: Order cancelled - Patient discharged Performed By: #### L 100.0100, L500.2500 ####[facility] [address] [place], [address] RDW CV Normal 11.6-14.6 [facility] Comment on above: Result Comment: Canc elled via OM: Order cancelled - Patient discharged Performed By: #### L 100.0100, L500.2500 ####[facility] [address] [place], [address] RDW SD Normal 35.1-43.9 [facility] Comment on above: Result Comment: Canc elled via OM: Order cancelled - Patient discharged Performed By: #### L 100.0100, L500.2500 ####[facility] [address] [place], [address] WBC Normal 4.4-11.0 [facility] Comment on above: Result Comment: Canc elled via OM: Order cancelled - Patient discharged Performed By: #### L 100.0100, L500.2500 ####[facility] [address] [place], [address] Urine Cultureon 11-29-2024 URC Normal [facility] Comment on above: Performed By: #### M 100.2200, L400.0001 ####[facility] [address] [place], [address] Absolute lymphocyte countOrd ered By: Ochoa Johnson on 11-28-2024 Lymphocytes Auto (Unsp spec) [#/Vol] 1.28 10*3/uL 0.83-4.51 [facility] Anion gap in Serum or Plasma Ordered By: Ochoa Johnson on 11-28-2024 Anion gap [Moles/Vol] 12 mmol/L 5-15 [facility] Automated lymphocyte count a s percentage of total leukocytesOrdered By: Ochoa Johnson on 11-28-2024 Lymphocytes/100 WBC Auto (Unsp spec) 11.2 % Low 19-41 [facility] BUN/creatinine ratioOrdered By: Ochoa Johnson on 11-28-2024 Urea nitrogen/Creatinine [Mass ratio] 21.1 mg/mg High 10-20 [facility] Basic Metabolic Profile (BMP )on 11-28-2024 BUN/CRE 21.1 RATIO High 10-20 [facility] Comment on above: Performed By: #### L 500.2500, L100.0100 ####[facility] [address] [place], [address] Calcium [Mass/Vol] 9.0 mg/dL Normal 7.6-11.0 [facility] Comment on above: Performed By: #### L 500.2500, L100.0100 ####[facility] [address] [place], [address] Chloride [Moles/Vol] 102 mmol/L Normal 98-108 [facility] Comment on above: Performed By: #### L 500.2500, L100.0100 ####[facility] [address] [place], [address] CO2 [Moles/Vol] 20.5 mmol/L Low 21.0-32.0 [facility] Comment on above: Performed By: #### L 500.2500, L100.0100 ####[facility] [address] [place], [address] Creatinine [Mass/Vol] 1.23 mg/dL High 0.70-1.20 [facility] Comment on above: Performed By: #### L 500.2500, L100.0100 ####[facility] [address] [place], [address] ECRCL 90.61 ml/min Normal 50-250 [facility] Comment on above: Performed By: #### L 500.2500, L100.0100 ####[facility] [address] [place], [address] GAP 12 Normal 5-15 [facility] Comment on above: Performed By: #### L 500.2500, L100.0100 ####[facility] [address] [place], [address] GFR/1.73 sq M.predicted among non-blacks MDRD (S/P/Bld) [Vol rate/Area] 67 mL/min/{1.73_m2} Normal >60 [facility] Comment on above: Result Comment: mL/m in/1.73m2 CKD-EPI Creatinine Equation (2020) Performed By: #### L 500.2500, L100.0100 ####[facility] [address] [place], [address] Glucose [Mass/Vol] 242 mg/dL High 70-99 [facility] Comment on above: Performed By: #### L 500.2500, L100.0100 ####[facility] [address] [place], [address] Potassium [Moles/Vol] 3.8 mmol/L Normal 3.3-5.1 [facility] Comment on above: Performed By: #### L 500.2500, L100.0100 ####[facility] [address] [place], [address] Sodium [Moles/Vol] 135 mmol/L Normal 133-145 [facility] Comment on above: Performed By: #### L 500.2500, L100.0100 ####[facility] [address] [place], [address] Urea nitrogen [Mass/Vol] 26 mg/dL High 4-19 [facility] Comment on above: Performed By: #### L 500.2500, L100.0100 ####[facility] [address] [place], [address] Basophil percentageOrdered B y: Ochoa Johnson on 11-28-2024 Basophils/100 WBC (Bld) 0.3 % 0-1 [facility] Bedside Glucoseon 11-28-2024 FINGERSTICK GLU 223 mg/dL High 74-106 [facility] Comment on above: Result Comment: ANI GEMENT OF PATIENT CARE PER NURSING PROTOCOL Performed By: #### L 501.080 ####[facility] [address] [place], [address] FINGERSTICK GLU 228 mg/dL High 74-106 [facility] Comment on above: Result Comment: ANI GEMENT OF PATIENT CARE PER NURSING PROTOCOL Performed By: #### L 501.080 ####[facility] [address] [place], [address] CBC W/Diff, Automatedon 08-3 0-2024 Absolute Lymph 1.28 X10 3/uL Normal 0.83-4.51 [facility] Comment on above: Performed By: #### L 500.2500, L100.0100 ####[facility] [address] [place], [address] Absolute Neut 8.9 X10 3/uL High 2.0-7.7 [facility] Comment on above: Performed By: #### L 500.2500, L100.0100 ####[facility] [address] [place], [address] Basophils/100 WBC (Bld) 0.3 % Normal 0-1 [facility] Comment on above: Performed By: #### L 500.2500, L100.0100 ####[facility] [address] [place], [address] Eosinophils/100 WBC (Bld) 1.7 % Normal 0-5 [facility] Comment on above: Performed By: #### L 500.2500, L100.0100 ####[facility] [address] [place], [address] Erythrocyte distribution width (RBC) [Ratio] 17.9 % High 11.6-14.6 [facility] Comment on above: Performed By: #### L 500.2500, L100.0100 ####[facility] [address] [place], [address] Hematocrit (Bld) [Volume fraction] 27.4 % Low 40-54 [facility] Comment on above: Performed By: #### L 500.2500, L100.0100 ####[facility] [address] [place], [address] Hemoglobin (Bld) [Mass/Vol] 8.6 g/dL Low 13.0-16.5 [facility] Comment on above: Performed By: #### L 500.2500, L100.0100 ####[facility] [address] [place], [address] IG% 0.900 Normal 0.0-0.9 [facility] Comment on above: Result Comment: IG% - Immature Granulocytes (promyelocytes, myelocytes andmetamyelocytes) > 1% indicates that a LEFT SHIFT is Present. Performed By: #### L 500.2500, L100.0100 ####[facility] [address] [place], [address] Lymphocytes/100 WBC (Bld) 11.2 % Low 19-41 [facility] Comment on above: Performed By: #### L 500.2500, L100.0100 ####[facility] [address] [place], [address] MCH (RBC) [Entitic mass] 24.3 pg Low 27.0-32.0 [facility] Comment on above: Performed By: #### L 500.2500, L100.0100 ####[facility] [address] [place], [address] MCHC (RBC) [Mass/Vol] 31.4 g/dL Low 32-36 [facility] Comment on above: Performed By: #### L 500.2500, L100.0100 ####[facility] [address] [place], [address] MCV (RBC) [Entitic vol] 77.4 fL Low 80-94 [facility] Comment on above: Performed By: #### L 500.2500, L100.0100 ####[facility] [address] [place], [address] Monocytes/100 WBC (Bld) 7.9 % Normal 0-10 [facility] Comment on above: Performed By: #### L 500.2500, L100.0100 ####[facility] [address] [place], [address] Neutrophils/100 WBC (Bld) 78.0 % High 47-70 [facility] Comment on above: Performed By: #### L 500.2500, L100.0100 ####[facility] [address] [place], [address] Nucleated RBC (Bld) [#/Vol] 0 10*3/uL Normal 0-5 [facility] Comment on above: Performed By: #### L 500.2500, L100.0100 ####[facility] [address] [place], [address] Platelet mean volume (Bld) [Entitic vol] 10.1 fL Normal 6.2-12.0 [facility] Comment on above: Performed By: #### L 500.2500, L100.0100 ####[facility] [address] [place], [address] Platelets (Bld) [#/Vol] 195 10*3/uL Normal 150-450 [facility] Comment on above: Performed By: #### L 500.2500, L100.0100 ####[facility] [address] [place], [address] RBC (Bld) [#/Vol] 3.54 10*6/uL Low 4.6-6.2 [facility] Comment on above: Performed By: #### L 500.2500, L100.0100 ####[facility] [address] [place], [address] RDW SD 51.1 fl High 35.1-43.9 [facility] Comment on above: Performed By: #### L 500.2500, L100.0100 ####[facility] [address] [place], [address] WBC (Bld) [#/Vol] 11.5 10*3/uL High 4.4-11.0 [facility] Comment on above: Performed By: #### L 500.2500, L100.0100 ####[facility] [address] [place], [address] Carbon dioxide, total [Moles /volume] in Central venous bloodOrdered By: Ochoa Johnson on 11-28-2024 CO2 [Moles/Vol] 20.5 mmol/L Low 21.0-32.0 [facility] Chloride assayOrdered By: Bernabe Johnson on 11-28-2024 Chloride [Moles/Vol] 102 mmol/L 98-108 [facility] Eosinophil percentageOrdered By: Ochoa Johnson on 11-28-2024 Eosinophils/100 WBC (Bld) 1.7 % 0-5 [facility] Erythrocyte distribution wid th ratioOrdered By: Ochoa Johnson on 11-28-2024 Erythrocyte distribution width (RBC) [Ratio] 17.9 % High 11.6-14.6 [facility] Erythrocyte distribution wid th standard deviationOrdered By: Ochoa Johnson on 11-28-2024 Erythrocyte distribution width (RBC) [Ratio] 51.1 fl High 35.1-43.9 [facility] Glomerular filtration rate ( GFR) estimation/1.73 sq m using serum, plasma, or whole bOrdered By: Ochoa Johnson on 11-28-2024 GFR/1.73 sq M.predicted among non-blacks MDRD (S/P/Bld) [Vol rate/Area] 67 mL/min/{1.73_m2} >60 [facility] deOrdered By: Ochoa Johnson on 11-28-2024 Glucose [Mass/Vol] 223 mg/dL High 74-106 [facility] Hematocrit Auto (Bld) [Volum e fraction]Ordered By: Ochoa Johnson on 11-28-2024 Hematocrit (Bld) [Volume fraction] 27.4 % Low 40-54 [facility] Hemoglobin measurementOrdere d By: Ochoa Johnson on 11-28-2024 Hemoglobin (Bld) [Mass/Vol] 8.6 g/dL Low 13.0-16.5 [facility] Immature granulocytes/100 WB C Auto (Bld)Ordered By: Ochoa Johnson on 11-28-2024 Immature granulocytes/100 WBC (Bld) 0.900 % 0.0-0.9 [facility] MCV (mean corpuscular volume ) determinationOrdered By: Ochoa Johnson on 11-28-2024 MCV (RBC) [Entitic vol] 77.4 fL Low 80-94 [facility] Mean corpuscular hemoglobin (MCH) determinationOrdered By: Ochoa Johnson on 11-28-2024 MCH (RBC) [Entitic mass] 24.3 pg Low 27.0-32.0 [facility] Monocyte percentageOrdered B y: Ochoa Johnson on 11-28-2024 Monocytes/100 WBC (Bld) 7.9 % 0-10 [facility] Neutrophil percentageOrdered By: Ochoa Johnson on 11-28-2024 Neutrophils/100 WBC (Bld) 78.0 % High 47-70 [facility] Platelet countOrdered By: Bernabe Johnson on 11-28-2024 Platelets (Bld) [#/Vol] 195 10*3/uL 150-450 [facility] Potassium measurement (mass/ volume)Ordered By: Ochoa Johnson on 11-28-2024 Potassium (Unsp spec) [Mass/Vol] 3.8 mmol/L 3.3-5.1 [facility] RBC Auto (Bld) [#/Vol]Ordere d By: Ochoa Johnson on 11-28-2024 RBC (Bld) [#/Vol] 3.54 10*6/uL Low 4.6-6.2 [facility] Serum creatinine measurement (mass/volume)Ordered By: Ochoa Johnson on 11-28-2024 Creatinine [Mass/Vol] 1.23 mg/dL High 0.70-1.20 [facility] Serum glucose measurement (m ass/volume)Ordered By: Ochoa Johnson on 11-28-2024 Glucose [Mass/Vol] 242 mg/dL High 70-99 [facility] Serum or plasma calcium grazyna urement (mass/volume)Ordered By: Ochoa Johnson on 11-28-2024 Calcium [Mass/Vol] 9.0 mg/dL 7.6-11.0 [facility] Serum or plasma urea nitroge n measurement (mass/volume)Ordered By: Ochoa Johnson on 11-28-2024 Urea nitrogen [Mass/Vol] 26 mg/dL High 4-19 [facility] Sodium levelOrdered By: Ochoa Johnson on 11-28-2024 Sodium [Moles/Vol] 135 mmol/L 133-145 [facility] Vancomycin, Trough Levelon 0 11-28-2024 VANCO, TROUGH 16.7 ug/mL High 5.0-15.0 [facility] Comment on above: Order Comment: Comme nts: DRAW 30 MIN PRIOR TO [id number] Result Comment: Luciano mmended goal trough ranges are generally 10-15 mcg/mlfor less severe/complicated infections such as cellulitisor UTI and 15-20 mcg/ml for more severe/complicatedinfections such as bacteremia/sepsis, osteomyelitis,pneumonia or meningitis. Goal trough ranges should takeinto account indication, patient-specific factors andorganism NOAH.VANCOMYCIN STANDARED DRUG THERAPY TROUGH LEVEL: 5.0 - 15.0 mg/LVANCOMYCIN HIGH INTENSITY THERAPY TROUGH LEVEL: 15.0 - 20.0 mg/LHigh Intensity therapy recommended for serious lifethreatening infections include:- Qeuagpsumk-Pwrltkqggdzn-Uajytisse (Ventilator/Healtcare Associated)-SepsisPLEASE CONTACT PHARMACY SERVICES (#9355) FOR INTERPRETATIONOF RESULTS. Performed By: #### L 501.8820 ####[facility] [address] [place], [place], [address] White blood cell (WBC) count Ordered By: Ochoa Johnson on 11-28-2024 WBC (Bld) [#/Vol] 11.5 10*3/uL High 4.4-11.0 [facility] Basic Metabolic Profile (BMP )on 11-27-2024 BUN/CRE 21.5 RATIO High 10-20 [facility] Comment on above: Performed By: #### L 100.0100, L501.9985, L500.2500 ####[facility] [address] [facility] [address] [place], [place], [address] Calcium [Mass/Vol] 9.0 mg/dL Normal 7.6-11.0 [facility] Comment on above: Performed By: #### L 100.0100, L501.9985, L500.2500 ####[facility] [address] [place], [address] Chloride [Moles/Vol] 104 mmol/L Normal 98-108 [facility] Comment on above: Performed By: #### L 100.0100, L501.9985, L500.2500 ####[facility] [address] [place], [address] CO2 [Moles/Vol] 22.2 mmol/L Normal 21.0-32.0 [facility] Comment on above: Performed By: #### L 100.0100, L501.9985, L500.2500 ####[facility] [address] [place], [address] Creatinine [Mass/Vol] 1.37 mg/dL High 0.70-1.20 [facility] Comment on above: Performed By: #### L 100.0100, L501.9985, L500.2500 ####[facility] [address] [place], [address] ECRCL 81.35 ml/min Normal 50-250 [facility] Comment on above: Performed By: #### L 100.0100, L501.9985, L500.2500 ####[facility] [address] [place], [address] GAP 11 Normal 5-15 [facility] Comment on above: Performed By: #### L 100.0100, L501.9985, L500.2500 ####[facility] [address] [place], [address] GFR/1.73 sq M.predicted among non-blacks MDRD (S/P/Bld) [Vol rate/Area] 59 mL/min/{1.73_m2} Low >60 [facility] Comment on above: Result Comment: mL/m in/1.73m2 CKD-EPI Creatinine Equation (2020) Performed By: #### L 100.0100, L501.9985, L500.2500 ####[facility] [address] [place], [address] Glucose [Mass/Vol] 203 mg/dL High 70-99 [facility] Comment on above: Performed By: #### L 100.0100, L501.9985, L500.2500 ####[facility] [address] [place], [address] Potassium [Moles/Vol] 3.8 mmol/L Normal 3.3-5.1 [facility] Comment on above: Performed By: #### L 100.0100, L501.9985, L500.2500 ####[facility] [address] [place], [address] Sodium [Moles/Vol] 137 mmol/L Normal 133-145 [facility] Comment on above: Performed By: #### L 100.0100, L501.9985, L500.2500 ####[facility] [address] [place], [address] Urea nitrogen [Mass/Vol] 29 mg/dL High 4-19 [facility] Comment on above: Performed By: #### L 100.0100, L501.9985, L500.2500 ####[facility] [address] [place], [address] Bedside Glucoseon 11-27-2024 FINGERSTICK GLU 397 mg/dL High 74-106 [facility] Comment on above: Result Comment: ANI GEMENT OF PATIENT CARE PER NURSING PROTOCOL Performed By: #### L 501.080 ####[facility] [address] [place], [address] FINGERSTICK GLU 436 mg/dL High 74-106 [facility] Comment on above: Result Comment: ANI GEMENT OF PATIENT CARE PER NURSING PROTOCOL Performed By: #### L 501.080 ####[facility] [address] [place], [address] FINGERSTICK GLU 241 mg/dL High 74-106 [facility] Comment on above: Result Comment: ANI GEMENT OF PATIENT CARE PER NURSING PROTOCOL Performed By: #### L 501.080 ####[facility] [address] [place], [address] FINGERSTICK GLU 181 mg/dL High 74-106 [facility] Comment on above: Result Comment: ANI GEMENT OF PATIENT CARE PER NURSING PROTOCOL Performed By: #### L 501.080 ####[facility] [address] [place], [address] FINGERSTICK GLU 467 mg/dL Invalid Interpretation Code 74-106 [facility] Comment on above: Result Comment: Dr Melisa maharaj FollowedMANAGEMENT OF PATIENT CARE PER NURSING PROTOCOL Performed By: #### L 501.080 ####[facility] [address] [place], [address] CBC W/Diff, Automatedon 10-31 Absolute Lymph 1.63 X10 3/uL Normal 0.83-4.51 [facility] Comment on above: Performed By: #### L 100.0100, L501.9985, L500.2500 ####[facility] [address] [place], [address] Absolute Neut 9.4 X10 3/uL High 2.0-7.7 [facility] Comment on above: Performed By: #### L 100.0100, L501.9985, L500.2500 ####[facility] [address] [place], [address] Basophils/100 WBC (Bld) 0.3 % Normal 0-1 [facility] Comment on above: Performed By: #### L 100.0100, L501.9985, L500.2500 ####[facility] [address] [place], [address] Eosinophils/100 WBC (Bld) 1.2 % Normal 0-5 [facility] Comment on above: Performed By: #### L 100.0100, L501.9985, L500.2500 ####[facility] [address] [place], [address] Erythrocyte distribution width (RBC) [Ratio] 18.6 % High 11.6-14.6 [facility] Comment on above: Performed By: #### L 100.0100, L501.9985, L500.2500 ####[facility] [address] [place], [address] Hematocrit (Bld) [Volume fraction] 28.5 % Low 40-54 [facility] Comment on above: Performed By: #### L 100.0100, L501.9985, L500.2500 ####[facility] [address] [place], [address] Hemoglobin (Bld) [Mass/Vol] 8.9 g/dL Low 13.0-16.5 [facility] Comment on above: Performed By: #### L 100.0100, L501.9985, L500.2500 ####[facility] [address] [place], [address] IG% 0.800 Normal 0.0-0.9 [facility] Comment on above: Result Comment: IG% - Immature Granulocytes (promyelocytes, myelocytes andmetamyelocytes) > 1% indicates that a LEFT SHIFT is Present. Performed By: #### L 100.0100, L501.9985, L500.2500 ####[facility] [address] [place], [address] Lymphocytes/100 WBC (Bld) 13.0 % Low 19-41 [facility] Comment on above: Performed By: #### L 100.0100, L501.9985, L500.2500 ####[facility] [address] [place], [address] MCH (RBC) [Entitic mass] 24.3 pg Low 27.0-32.0 [facility] Comment on above: Performed By: #### L 100.0100, L501.9985, L500.2500 ####[facility] [address] [place], [address] MCHC (RBC) [Mass/Vol] 31.2 g/dL Low 32-36 [facility] Comment on above: Performed By: #### L 100.0100, L501.9985, L500.2500 ####[facility] [address] [place], [address] MCV (RBC) [Entitic vol] 77.9 fL Low 80-94 [facility] Comment on above: Performed By: #### L 100.0100, L501.9985, L500.2500 ####[facility] [address] [place], [address] Monocytes/100 WBC (Bld) 10.3 % High 0-10 [facility] Comment on above: Performed By: #### L 100.0100, L501.9985, L500.2500 ####[facility] [address] [place], [address] Neutrophils/100 WBC (Bld) 74.4 % High 47-70 [facility] Comment on above: Performed By: #### L 100.0100, L501.9985, L500.2500 ####[facility] [address] [place], [address] Nucleated RBC (Bld) [#/Vol] 0 10*3/uL Normal 0-5 [facility] Comment on above: Performed By: #### L 100.0100, L501.9985, L500.2500 ####[facility] [address] [place], [address] Platelet mean volume (Bld) [Entitic vol] 10.0 fL Normal 6.2-12.0 [facility] Comment on above: Performed By: #### L 100.0100, L501.9985, L500.2500 ####[facility] [address] [place], [address] Platelets (Bld) [#/Vol] 191 10*3/uL Normal 150-450 [facility] Comment on above: Performed By: #### L 100.0100, L501.9985, L500.2500 ####[facility] [address] [place], [address] RBC (Bld) [#/Vol] 3.66 10*6/uL Low 4.6-6.2 [facility] Comment on above: Performed By: #### L 100.0100, L501.9985, L500.2500 ####[facility] [address] [place], [address] RDW SD 51.8 fl High 35.1-43.9 [facility] Comment on above: Performed By: #### L 100.0100, L501.9985, L500.2500 ####[facility] [address] [place], [address] WBC (Bld) [#/Vol] 12.6 10*3/uL High 4.4-11.0 [facility] Comment on above: Performed By: #### L 100.0100, L501.9985, L500.2500 ####[facility] [address] [place], [address] Hemoglobin A1con 11-27-2024 HbA1c (Bld) [Mass fraction] 9.6 % High <=5.6 [facility] Comment on above: Result Comment: Norm al < 5.7 % Prediabetic 5.7 - 6.4 % Diabetic >or= 6.5 % Please note range changes. Performed By: #### L 100.0100, L501.9985, L500.2500 ####[facility] [address] [place], [place], [address] Hemoglobin A1c percentageOrd ered By: Ochoa Johnson on 11-27-2024 HbA1c (Bld) [Mass fraction] 9.6 % High <5.7 [facility] Trough vancomycin levelOrder ed By: Ochoa Johnson on 11-27-2024 Vancomycin trough [Mass/Vol] 16.7 ug/mL High 5.0-15.0 [facility] 12 Lead EKGon 11-26-2024 12 Lead EKG Normal [facility] Absolute lymphocyte countOrd ered By: Betina Martinez on 11-26-2024 Lymphocytes Auto (Unsp spec) [#/Vol] 1.67 10*3/uL 0.83-4.51 [facility] Anion gap in Serum or Plasma Ordered By: Betina Martinez on 11-26-2024 Anion gap [Moles/Vol] 15 mmol/L 5-15 [facility] Automated lymphocyte count a s percentage of total leukocytesOrdered By: Betina Martinez on 11-26-2024 Lymphocytes/100 WBC Auto (Unsp spec) 8.9 % Low 19-41 [facility] BUN/creatinine ratioOrdered By: Betina Martinez on 11-26-2024 Urea nitrogen/Creatinine [Mass ratio] 20.6 mg/mg High 10-20 [facility] Basophil percentageOrdered B y: Betina Martinez on 11-26-2024 Basophils/100 WBC (Bld) 0.3 % 0-1 [facility] Bedside Glucoseon 11-26-2024 FINGERSTICK GLU 384 mg/dL High 74-106 [facility] Comment on above: Result Comment: ANI BRADFORD OF PATIENT CARE PER NURSING PROTOCOL Performed By: #### L 501.080 ####[facility] [address] [place], [address] Bilirubin Test strip Ql (U)O rdered By: Betina Martinez on 11-26-2024 Bilirubin Ql (U) Negative Negative [facility] Bilirubin, totalOrdered By: Betina Martinez on 11-26-2024 Bilirubin [Mass/Vol] 0.71 mg/dL 0.00-1.30 [facility] Blood cultureOrdered By: Indiana Martinez on 11-26-2024 Bacteria identified Cx Nom (Bld) No growth in 5 days. [facility] Bacteria identified Cx Nom (Bld) No growth in 5 days. [facility] Brain/Head without Contrasto n 11-26-2024 Brain/Head without Contrast Normal [facility] CBC W/Diff, Automatedon - OVALOCYTE 1+ Normal [facility] Comment on above: Performed By: #### L 500.4050, L100.0100, M200.1000, L503.6005, L501.4021 ####[facility] [address] [place], [address] PLT EST ADEQUATE Normal ADEQ [facility] Comment on above: Performed By: #### L 500.4050, L100.0100, M200.1000, L503.6005, L501.4021 ####[facility] [address] [place], [address] CO2 (BldV) [Moles/Vol]Ordere d By: Betina Martinez on 11-26-2024 CO2 [Moles/Vol] 26 mmol/L 23-33 [facility] Carbon dioxide, total [Moles /volume] in Central venous bloodOrdered By: Betina Martinez on 11-26-2024 CO2 [Moles/Vol] 23.3 mmol/L 21.0-32.0 [facility] Chest PA and Lateralon 11-26 Chest PA and Lateral Normal [facility] Chloride assayOrdered By: Bernabe Martinez on 11-26-2024 Chloride [Moles/Vol] 96 mmol/L Low 98-108 [facility] Comprehensive Metabolic Prof ilon 11-26-2024 Albumin [Mass/Vol] 3.7 g/dL Normal 3.4-4.8 [facility] Comment on above: Performed By: #### L 500.4050, L100.0100, M200.1000, L503.6005, L501.4021 ####[facility] [address] [place], [address] Albumin/Globulin [Mass ratio] 1.1 {ratio} Normal 0.9-2.4 [facility] Comment on above: Performed By: #### L 500.4050, L100.0100, M200.1000, L503.6005, L501.4021 ####[facility] [address] [place], [address] ALK PHOS 58 U/L Normal 40-129 [facility] Comment on above: Performed By: #### L 500.4050, L100.0100, M200.1000, L503.6005, L501.4021 ####[facility] [address] [place], [address] ALT [Catalytic activity/Vol] 18 U/L Normal <=46 [facility] Comment on above: Performed By: #### L 500.4050, L100.0100, M200.1000, L503.6005, L501.4021 ####[facility] [address] [place], [address] AST [Catalytic activity/Vol] 13 U/L Normal <=37 [facility] Comment on above: Performed By: #### L 500.4050, L100.0100, M200.1000, L503.6005, L501.4021 ####[facility] [address] [place], [address] Bilirubin [Mass/Vol] 0.71 mg/dL Normal 0.00-1.30 [facility] Comment on above: Performed By: #### L 500.4050, L100.0100, M200.1000, L503.6005, L501.4021 ####[facility] [address] [place], [address] BUN/CRE 20.6 RATIO High 10-20 [facility] Comment on above: Performed By: #### L 500.4050, L100.0100, M200.1000, L503.6005, L501.4021 ####[facility] [address] [place], [address] Calcium [Mass/Vol] 9.1 mg/dL Normal 7.6-11.0 [facility] Comment on above: Performed By: #### L 500.4050, L100.0100, M200.1000, L503.6005, L501.4021 ####[facility] [address] [place], [address] Chloride [Moles/Vol] 96 mmol/L Low 98-108 [facility] Comment on above: Performed By: #### L 500.4050, L100.0100, M200.1000, L503.6005, L501.4021 ####[facility] [address] [place], [address] CO2 [Moles/Vol] 23.3 mmol/L Normal 21.0-32.0 [facility] Comment on above: Performed By: #### L 500.4050, L100.0100, M200.1000, L503.6005, L501.4021 ####[facility] [address] [place], [address] Creatinine [Mass/Vol] 2.06 mg/dL High 0.70-1.20 [facility] Comment on above: Performed By: #### L 500.4050, L100.0100, M200.1000, L503.6005, L501.4021 ####[facility] [address] [place], [address] ECRCL 53.51 ml/min Normal 50-250 [facility] Comment on above: Performed By: #### L 500.4050, L100.0100, M200.1000, L503.6005, L501.4021 ####[facility] [address] [place], [address] GAP 15 Normal 5-15 [facility] Comment on above: Performed By: #### L 500.4050, L100.0100, M200.1000, L503.6005, L501.4021 ####[facility] [address] [place], [address] GFR/1.73 sq M.predicted among non-blacks MDRD (S/P/Bld) [Vol rate/Area] 36 mL/min/{1.73_m2} Low >60 [facility] Comment on above: Result Comment: mL/m in/1.73m2 CKD-EPI Creatinine Equation (2020) Performed By: #### L 500.4050, L100.0100, M200.1000, L503.6005, L501.4021 ####[facility] [address] [place], [address] Globulin (S) [Mass/Vol] 3.5 g/dL Normal 2.2-4.2 [facility] Comment on above: Performed By: #### L 500.4050, L100.0100, M200.1000, L503.6005, L501.4021 ####[facility] [address] [place], [address] Glucose [Mass/Vol] 336 mg/dL High 70-99 [facility] Comment on above: Performed By: #### L 500.4050, L100.0100, M200.1000, L503.6005, L501.4021 ####[facility] [address] [place], [address] Potassium [Moles/Vol] 3.8 mmol/L Normal 3.3-5.1 [facility] Comment on above: Performed By: #### L 500.4050, L100.0100, M200.1000, L503.6005, L501.4021 ####[facility] [address] [place], [address] Sodium [Moles/Vol] 135 mmol/L Normal 133-145 [facility] Comment on above: Performed By: #### L 500.4050, L100.0100, M200.1000, L503.6005, L501.4021 ####[facility] [address] [place], [address] T PROT 7.2 g/dL Normal 5.9-8.4 [facility] Comment on above: Performed By: #### L 500.4050, L100.0100, M200.1000, L503.6005, L501.4021 ####[facility] [address] [place], [address] Urea nitrogen [Mass/Vol] 42 mg/dL High 4-19 [facility] Comment on above: Performed By: #### L 500.4050, L100.0100, M200.1000, L503.6005, L501.4021 ####[facility] [address] [place], [address] Emergency Department Summary on 11-26-2024 Emergency Department Summary Normal [facility] Eosinophil percentageOrdered By: Betina Martinez on 11-26-2024 Eosinophils/100 WBC (Bld) 0.4 % 0-5 [facility] Erythrocyte distribution wid th ratioOrdered By: Betina Martinez on 11-26-2024 Erythrocyte distribution width (RBC) [Ratio] 18.7 % High 11.6-14.6 [facility] Erythrocyte distribution wid th standard deviationOrdered By: Betina Martinez on 11-26-2024 Erythrocyte distribution width (RBC) [Ratio] 51.3 fl High 35.1-43.9 [facility] Glomerular filtration rate ( GFR) estimation/1.73 sq m using serum, plasma, or whole bOrdered By: Betina Martinez on 11-26-2024 GFR/1.73 sq M.predicted among non-blacks MDRD (S/P/Bld) [Vol rate/Area] 36 mL/min/{1.73_m2} Low >60 [facility] H AND P Exam - Hospitaliston 11-26-2024 H&P Exam - Hospitalist Normal [facility] Hematocrit Auto (Bld) [Volum e fraction]Ordered By: Betina Martinez on 11-26-2024 Hematocrit (Bld) [Volume fraction] 32.0 % Low 40-54 [facility] Hemoglobin measurementOrdere d By: Betina Martinez on 11-26-2024 Hemoglobin (Bld) [Mass/Vol] 10.0 g/dL Low 13.0-16.5 [facility] Immature granulocytes/100 WB C Auto (Bld)Ordered By: Betina Martinez on 11-26-2024 Immature granulocytes/100 WBC (Bld) 1.100 % High 0.0-0.9 [facility] Influenza virus A and B and SARS-CoV-2 (COVID-19) and Respiratory syncytial virus RNAOrdered By: Betina Martinez on 11-26-2024 SARS-CoV-2 (COVID-19) RNA FLORES+probe Ql (Unsp spec) [facility] Ketones Test strip Ql (U)Ord ered By: Betina Martinez on 11-26-2024 Ketones Ql (U) Negative Negative [facility] L501.4021on 11-26-2024 Trop T High Sen 59 ng/L Invalid Interpretation Code <=22 [facility] Comment on above: Result Comment: Crit ical Result(s) Called at 1057: by: LUIZ RODRIGUEZ. ??Results read back by same. Performed By: #### L 500.4050, L100.0100, M200.1000, L503.6005, L501.4021 ####[facility] [address] [place], [address] Lactic Acidon 11-26-2024 Lactate [Moles/Vol] mmol/L Normal 0.0-2.0 [facility] Comment on above: Order Comment: Comme nts: if result >2, system reflex orders 2nd test @ 4hrsY Performed By: #### L 503.6005 ####[facility] [address] [place], [address] Lactate [Moles/Vol] 1.8 mmol/L Normal 0.0-2.0 [facility] Comment on above: Order Comment: Y Performed By: #### L 500.4050, L100.0100, M200.1000, L503.6005, L501.4021 ####[facility] [address] [place], [address] M100.678on 11-26-2024 M100.678 Normal Reference Ran ge = Negative [employer], PCR method SARS-CoV-2 (COVID 19) Negative INFLUENZA A Negative INFLUENZA B Negative RSV PCR Negative Normal [facility] Comment on above: Performed By: #### M 100.678 ####[facility] [address] [place], [place], [address] MCV (mean corpuscular volume ) determinationOrdered By: Betina Martinez on 11-26-2024 MCV (RBC) [Entitic vol] 77.3 fL Low 80-94 [facility] Mean corpuscular hemoglobin (MCH) determinationOrdered By: Betina Martinez on 11-26-2024 MCH (RBC) [Entitic mass] 24.2 pg Low 27.0-32.0 [facility] Monocyte percentageOrdered B y: Betina Martinez on 11-26-2024 Monocytes/100 WBC (Bld) 12.8 % High 0-10 [facility] Mucus LM Ql (Urine sed)Order ed By: Betina Martinez on 11-26-2024 Mucus Ql (Urine sed) 0 SEEN /hpf [facility] Neutrophil percentageOrdered By: Betina Martinez on 11-26-2024 Neutrophils/100 WBC (Bld) 76.5 % High 47-70 [facility] Nitrite Test strip Ql (U)Ord ered By: Betina Martinez on 11-26-2024 Nitrite Ql (U) Negative Negative [facility] No Panel InformationOrdered By: Betina Martinez on 11-26-2024 JOSHUA [facility] Not entered [facility] 13 U/L <38 [facility] Ovalocyte detectionOrdered B y: Betina Martinez on 11-26-2024 Ovalocytes LM Ql (Bld) 1+ [facility] Pelvis 1 or 2 Viewson 2024 Pelvis 1 or 2 Views Normal [facility] Platelet countOrdered By: Bernabe Martinez on 11-26-2024 Platelets (Bld) [#/Vol] 246 10*3/uL 150-450 [facility] Platelet estimateOrdered By: Betina Martinez on 11-26-2024 Platelets LM Ql (Bld) ADEQUATE ADEQ [facility] Potassium measurement (mass/ volume)Ordered By: Betina Martinez on 11-26-2024 Potassium (Unsp spec) [Mass/Vol] 3.8 mmol/L 3.3-5.1 [facility] Protein Test strip Ql (U)Ord ered By: Betina Martinez on 11-26-2024 Protein Ql (U) 15 mg/dl High Negative [facility] RBC Auto (Bld) [#/Vol]Ordere d By: Betina Martinez on 11-26-2024 RBC (Bld) [#/Vol] 4.14 10*6/uL Low 4.6-6.2 [facility] Serum creatinine measurement (mass/volume)Ordered By: Betina Martinez on 11-26-2024 Creatinine [Mass/Vol] 2.06 mg/dL High 0.70-1.20 [facility] Serum globulin measurementOr dered By: Betina Martinez on 11-26-2024 Globulin (S) [Mass/Vol] 3.5 g/dL 2.2-4.2 [facility] Serum glucose measurement (m ass/volume)Ordered By: Betina Martinez on 11-26-2024 Glucose [Mass/Vol] 336 mg/dL High 70-99 [facility] Serum or plasma alanine briscoe otransferase (ALT) measurementOrdered By: Betina Martinez on 11-26-2024 ALT [Catalytic activity/Vol] 18 U/L <47 [facility] Serum or plasma albumin grazyna urement (mass/volume)Ordered By: Betina Martinez on 11-26-2024 Albumin [Mass/Vol] 3.7 g/dL 3.4-4.8 [facility] Serum or plasma albumin/glob ulin mass ratioOrdered By: Betina Martinez on 11-26-2024 Albumin/Globulin [Mass ratio] 1.1 {ratio} 0.9-2.4 [facility] Serum or plasma alkaline benjamin sphatase measurementOrdered By: Betina Martinez on 11-26-2024 ALP [Catalytic activity/Vol] 58 U/L 40-129 [facility] Serum or plasma calcium grazyna urement (mass/volume)Ordered By: Betina Martinez on 11-26-2024 Calcium [Mass/Vol] 9.1 mg/dL 7.6-11.0 [facility] Serum or plasma urea nitroge n measurement (mass/volume)Ordered By: Betina Martinez on 11-26-2024 Urea nitrogen [Mass/Vol] 42 mg/dL High 4-19 [facility] Sodium levelOrdered By: Ochoa Martinez on 11-26-2024 Sodium [Moles/Vol] 135 mmol/L 133-145 [facility] Spine Cervical without Contr ason 11-26-2024 Spine Cervical without Contras Normal [facility] Squamous epithelial cells de tection in urine sediment by light microscopyOrdered By: Betina Martinez on 11-26-2024 Epithelial cells.squamous LM Ql (Urine sed) 0-5 SEEN /hpf 0-5 [facility] Total proteinOrdered By: Indiana Martinez on 11-26-2024 Protein [Mass/Vol] 7.2 g/dL 5.9-8.4 [facility] Troponin T HS 2 HRon 025 Trop T High Sen 52 ng/L High <=22 [facility] Comment on above: Performed By: #### L 499.0042 ####[facility] [address] [place], [address] Troponin T HS 4 HRon 025 Trop T High Sen 51 ng/L High <=22 [facility] Comment on above: Performed By: #### L 499.0043 ####[facility] [address] [place], [address] Troponin T.cardiac [Mass/vol ume] in Serum or Plasma by High sensitivity methodOrdered By: Betina Martinez on 11-26-2024 Troponin T.cardiac High sensitivity method [Mass/Vol] 51 ng/L High <22 [facility] Troponin T.cardiac High sensitivity method [Mass/Vol] 52 ng/L High <22 [facility] Troponin T.cardiac High sensitivity method [Mass/Vol] 59 ng/L High <22 [facility] Urinalysis, Completeon 11-26 EPI,SQUAMOUS 0-5 SEEN Normal 0-5 [facility] Comment on above: Order Comment: FAM TER SPECIMEN Performed By: #### M 100.2200, L400.0001 ####[facility] [address] [place], [address] BACTERIA 0 SEEN Normal None Seen [facility] Comment on above: Order Comment: FAM TER SPECIMEN Performed By: #### M 100.2200, L400.0001 ####[facility] [address] [place], [address] Mucus Ql (Urine sed) 0 SEEN Normal [facility] Comment on above: Order Comment: FAM TER SPECIMEN Performed By: #### M 100.2200, L400.0001 ####[facility] [address] [place], [address] RBC 0 SEEN Normal 0-5 [facility] Comment on above: Order Comment: FAM TER SPECIMEN Performed By: #### M 100.2200, L400.0001 ####[facility] [address] [place], [address] WBC 0 SEEN Normal 0-5 [facility] Comment on above: Order Comment: FAM TER SPECIMEN Performed By: #### M 100.2200, L400.0001 ####[facility] [address] [place], [place], [address] Urine clarityOrdered By: Indiana Martinez on 11-26-2024 Clarity (U) Clear Clear [facility] Urine color determinationOrd ered By: Betina Martinez on 11-26-2024 Color (U) Yellow Yellow [facility] Urine cultureOrdered By: Indiana Martinez on 11-26-2024 Bacteria identified Cx Nom (U) Streptococcus agalactiae (B) Abnormal [facility] Bacteria identified Cx Nom (U) Positive Abnormal [facility] Urine glucose detectionOrder ed By: Betina Martinez on 11-26-2024 Glucose Ql (U) 1000 mg/dl High Normal [facility] Urine leukocyte esterase det ection by dipstickOrdered By: Betina Martinez on 11-26-2024 Leukocyte esterase Test strip Ql (U) Negative Negative [facility] Urine pHOrdered By: Betina otero on 11-26-2024 pH (U) 6.0 [pH] 5.0 - 8.0 [facility] Urine sediment bacteria coun t by microscopy (number/high power field)Ordered By: Betina Martinez on 11-26-2024 Bacteria LM.HPF (Urine sed) [#/Area] 0 /[HPF] None Seen [facility] Urine specific gravity measu rementOrdered By: Betina Martinez on 11-26-2024 Specific gravity (U) [Rel density] 1.015 1.002-1.030 [facility] Urine urobilinogen measureme ntOrdered By: Betina Martinez on 11-26-2024 Urobilinogen Ql (U) Normal mg/dl Normal [facility] Venous Blood Gason 5 Blood Gas Type JOSHUA Normal [facility] Comment on above: Performed By: #### L 9000.0810 ####[facility] [address] [place], [place], [address] CO2 [Moles/Vol] 26 mmol/L Normal 23-33 [facility] Comment on above: Performed By: #### L 9000.0810 ####[facility] [address] [place], [address] HCO3 (Bld) [Moles/Vol] 25 mmol/L Normal 22-26 [facility] Comment on above: Performed By: #### L 9000.0810 ####[facility] [address] [place], [address] O2 Delivery Dev Not entered Normal [facility] Comment on above: Performed By: #### L 900.0810 ####[facility] [address] [place], [address] SITE Not entered Normal [facility] Comment on above: Performed By: #### L 9000.0810 ####[facility] [address] [place], [address] VBG BE 1 mmol/L Normal -1.0-3.5 [facility] Comment on above: Performed By: #### L 900.0810 ####[facility] [address] [place], [address] VBG pCO2 37.0 mmHg Low 41-51 [facility] Comment on above: Performed By: #### L 9000.0810 ####[facility] [address] [place], [address] VBG pH 7.44 High 7.32-7.42 [facility] Comment on above: Performed By: #### L 9000.0810 ####[facility] [address] [place], [address] VBG PO2 40 mmHg Normal 25-40 [facility] Comment on above: Performed By: #### L 9000.0810 ####[facility] [address] [place], [address] VBG SO2 77 High 50-70 [facility] Comment on above: Performed By: #### L 9000.0810 ####[facility] [address] [place], [address] Venous blood base excess elizabeth surementOrdered By: Betina Martinez on 11-26-2024 Base excess Calc (BldV) [Moles/Vol] 1 mmol/L -1.0-3.5 [facility] Venous blood bicarbonate elizabeth surementOrdered By: Betina Martinez on 11-26-2024 HCO3 (Bld) [Moles/Vol] 25 mmol/L 22-26 [facility] Venous blood pH measurementO rdered By: Betina Martinez on 11-26-2024 pH (BldV) 7.44 [pH] High 7.32-7.42 [facility] Venous blood partial pressur e of carbon dioxide measurementOrdered By: Betina Martinez on 11-26-2024 CO2 (BldV) [Partial pressure] 37.0 mm[Hg] Low 41-51 [facility] Venous blood partial pressur e of oxygen measurementOrdered By: Betina Martinez on 11-26-2024 Oxygen (BldV) [Partial pressure] 40 mm[Hg] 25-40 [facility] White blood cell (WBC) count Ordered By: Betina Martinez on 11-26-2024 WBC (Bld) [#/Vol] 18.7 10*3/uL High 4.4-11.0 [facility] White blood cell countOrdere d By: Betina Martinez on 11-26-2024 White blood cell count 0 SEEN /hpf 0-5 [facility] Pulmonary Visit Reporton Pulmonary Visit Report Normal [facility] HEPATIC FUNCTION PANELon Albumin [Mass/Vol] 4.1 g/dL Normal 3.6-5.1 [facility] Comment on above: Performed By: #### 1 0256 #### [facility] [address] [address] [employer] Information [employer] Analyst: Octavio Segovia MD Albumin/Globulin [Mass ratio] 1.3 {ratio} Normal 1.0-2.5 [facility] Comment on above: Performed By: #### 1 0256 #### [facility] [address] [address] [employer] Analyst: Octavio Segovia MD ALP [Catalytic activity/Vol] 51 U/L Normal 35-144 [facility] Comment on above: Performed By: #### 1 0256 #### [facility] of [place] [address] [employer] Analyst: Octavio Segovia MD ALT [Catalytic activity/Vol] 21 U/L Normal 9-46 [facility] Comment on above: Performed By: #### 1 0256 #### [facility] [place] [address] [employer] Analyst: Octavio Segovia MD AST [Catalytic activity/Vol] 19 U/L Normal 10-35 [facility] Comment on above: Performed By: #### 1 0256 #### [facility] [place] [address] [employer] Information [employer] Analyst: Octavio Segovia MD Bilirubin [Mass/Vol] 0.6 mg/dL Normal 0.2-1.2 [facility] Comment on above: Performed By: #### 1 0256 #### [facility] [place] [address] [employer] Analyst: Octavio Segovia MD BILIRUBIN, INDIRECT 0.5 mg/dL (calc) Normal 0.2-1.2 [facility] Comment on above: Performed By: #### 1 0256 #### [facility] [place] [address] [employer] Analyst: Octavio Segovia MD Bilirubin.indirect [Mass/Vol] 0.1 mg/dL Normal < OR = 0.2 [facility] Comment on above: Performed By: #### 1 0256 #### [facility] [place] [address] [employer] Analyst: Octavio Segovia MD Globulin (S) [Mass/Vol] 3.2 g/dL Normal 1.9-3.7 [facility] Comment on above: Performed By: #### 1 0256 #### [facility] of [address] [place] [address] [employer] Information [employer] Analyst: Octavio Segovia MD Protein [Mass/Vol] 7.3 g/dL Normal 6.1-8.1 [facility] Comment on above: Performed By: #### 1 0256 #### [facility] [address], [address] [place] [address] [employer] Analyst: Octavio Segovia MD Hepatic function 2000 panelo n 11-24-2024 Albumin [Mass/Vol] 4.1 g/dL 3.6 - 5.1 g/dL [facility] Albumin/Globulin [Mass ratio] 1.3 {ratio} [facility] ALP [Catalytic activity/Vol] 51 U/L 35 - 144 U/L [facility] ALT [Catalytic activity/Vol] 21 U/L 9 - 46 U/L [facility] AST [Catalytic activity/Vol] 19 U/L 10 - 35 U/L [facility] Bilirubin [Mass/Vol] 0.6 mg/dL 0.2 - 1 .2 mg/dL [facility] Bilirubin.direct [Mass/Vol] 0.1 mg/dL < OR = 0.2 [facility] Bilirubin.indirect [Mass/Vol] 0.5 mg/dL [facility] Globulin (S) [Mass/Vol] 3.2 g/dL [facility] Protein [Mass/Vol] 7.3 g/dL 6.1 - 8.1 g/dL [facility] OT D/C Summaryon 11-19-2024 OT D/C Summary Normal [facility] OT D/C of Non Returning Pton 11-19-2024 OT D/C of Non Returning Pt Normal [facility] Office Visit Reporton 2024 Office Visit Report Normal [facility] Absolute lymphocyte countOrd ered By: Rito Lundberg on 11-03-2024 Lymphocytes Auto (Unsp spec) [#/Vol] 1.23 10*3/uL 0.83-4.51 [facility] Automated lymphocyte count a s percentage of total leukocytesOrdered By: Rito Lundberg on 11-03-2024 Lymphocytes/100 WBC Auto (Unsp spec) 6.4 % Low 19-41 [facility] Basophil percentageOrdered B y: Rito Lundberg on 11-03-2024 Basophils/100 WBC (Bld) 0.6 % 0-1 [facility] CBC W/Diff, Automatedon -2024 Absolute Lymph 1.23 X10 3/uL Normal 0.83-4.51 [facility] Comment on above: Performed By: #### L 503.6550, L503.6030, L100.9950, L100.0100 ####[facility] [address] [place], [address] Absolute Neut 15.7 X10 3/uL High 2.0-7.7 [facility] Comment on above: Performed By: #### L 503.6550, L503.6030, L100.9950, L100.0100 ####[facility] [address] [place], [address] Basophils/100 WBC (Bld) 0.6 % Normal 0-1 [facility] Comment on above: Performed By: #### L 503.6550, L503.6030, L100.9950, L100.0100 ####[facility] [address] [place], [address] Eosinophils/100 WBC (Bld) 1.3 % Normal 0-5 [facility] Comment on above: Performed By: #### L 503.6550, L503.6030, L100.9950, L100.0100 ####[facility] [address] [place], [address] Erythrocyte distribution width (RBC) [Ratio] 18.5 % High 11.6-14.6 [facility] Comment on above: Performed By: #### L 503.6550, L503.6030, L100.9950, L100.0100 ####[facility] [address] [place], [address] Hematocrit (Bld) [Volume fraction] 34.6 % Low 40-54 [facility] Comment on above: Performed By: #### L 503.6550, L503.6030, L100.9950, L100.0100 ####[facility] [address] [place], [address] Hemoglobin (Bld) [Mass/Vol] 10.0 g/dL Low 13.0-16.5 [facility] Comment on above: Performed By: #### L 503.6550, L503.6030, L100.9950, L100.0100 ####[facility] [address] [place], [address] IG% 1.500 High 0.0-0.9 [facility] Comment on above: Result Comment: IG% - Immature Granulocytes (promyelocytes, myelocytes andmetamyelocytes) > 1% indicates that a LEFT SHIFT is Present. Performed By: #### L 503.6550, L503.6030, L100.9950, L100.0100 ####[facility] [address] [place], [address] Lymphocytes/100 WBC (Bld) 6.4 % Low 19-41 [facility] Comment on above: Performed By: #### L 503.6550, L503.6030, L100.9950, L100.0100 ####[facility] [address] [place], [address] MCH (RBC) [Entitic mass] 23.7 pg Low 27.0-32.0 [facility] Comment on above: Performed By: #### L 503.6550, L503.6030, L100.9950, L100.0100 ####[facility] [address] [place], [address] MCHC (RBC) [Mass/Vol] 28.9 g/dL Low 32-36 [facility] Comment on above: Performed By: #### L 503.6550, L503.6030, L100.9950, L100.0100 ####[facility] [address] [place], [address] MCV (RBC) [Entitic vol] 82.0 fL Normal 80-94 [facility] Comment on above: Performed By: #### L 503.6550, L503.6030, L100.9950, L100.0100 ####[facility] [address] [place], [address] Monocytes/100 WBC (Bld) 8.6 % Normal 0-10 [facility] Comment on above: Performed By: #### L 503.6550, L503.6030, L100.9950, L100.0100 ####[facility] [address] [place], [address] Neutrophils/100 WBC (Bld) 81.6 % High 47-70 [facility] Comment on above: Performed By: #### L 503.6550, L503.6030, L100.9950, L100.0100 ####[facility] [address] [place], [address] Nucleated RBC (Bld) [#/Vol] 0 10*3/uL Normal 0-5 [facility] Comment on above: Performed By: #### L 503.6550, L503.6030, L100.9950, L100.0100 ####[facility] [address] [place], [address] Platelet mean volume (Bld) [Entitic vol] 9.4 fL Normal 6.2-12.0 [facility] Comment on above: Performed By: #### L 503.6550, L503.6030, L100.9950, L100.0100 ####[facility] [address] [place], [address] Platelets (Bld) [#/Vol] 288 10*3/uL Normal 150-450 [facility] Comment on above: Performed By: #### L 503.6550, L503.6030, L100.9950, L100.0100 ####[facility] [address] [place], [address] RBC (Bld) [#/Vol] 4.22 10*6/uL Low 4.6-6.2 [facility] Comment on above: Performed By: #### L 503.6550, L503.6030, L100.9950, L100.0100 ####[facility] [address] [place], [address] RDW SD 54.4 fl High 35.1-43.9 [facility] Comment on above: Performed By: #### L 503.6550, L503.6030, L100.9950, L100.0100 ####[facility] [address] [place], [address] WBC (Bld) [#/Vol] 19.2 10*3/uL High 4.4-11.0 [facility] Comment on above: Performed By: #### L 503.6550, L503.6030, L100.9950, L100.0100 ####[facility] [address] [place], [address] Eosinophil percentageOrdered By: Rito Lundberg on 11-03-2024 Eosinophils/100 WBC (Bld) 1.3 % 0-5 [facility] Erythrocyte distribution wid th ratioOrdered By: Rito Lundberg on 11-03-2024 Erythrocyte distribution width (RBC) [Ratio] 18.5 % High 11.6-14.6 [facility] Erythrocyte distribution wid th standard deviationOrdered By: Rito Lundberg on 11-03-2024 Erythrocyte distribution width (RBC) [Ratio] 54.4 fl High 35.1-43.9 [facility] Ferritinon 11-03-2024 Ferritin [Mass/Vol] 124 ng/mL Normal 37-417 [facility] Comment on above: Performed By: #### L 503.6550, L503.6030, L100.9950, L100.0100 ####[facility] [address] [place], [address] Hematocrit Auto (Bld) [Volum e fraction]Ordered By: Rito Lundberg on 11-03-2024 Hematocrit (Bld) [Volume fraction] 34.6 % Low 40-54 [facility] Hemoglobin measurementOrdere d By: [facility] on 11-03-2024 Hemoglobin (Bld) [Mass/Vol] 10.0 g/dL Low 13.0-16.5 [facility] Immature granulocytes/100 WB C Auto (Bld)Ordered By: [facility] Hospital[facility]lene Lund[facility] on 11-03-2024 Immature granulocytes/100 WBC (Bld) 1.500 % High 0.0-0.9 [facility] Iron measurement (mass/mass) Ordered By: [facility] on 11-03-2024 Iron (Unsp spec) [Mass/Mass] 52 ug/dL Low 65-175 [facility] Iron+Iron Binding Capacityon 11-03-2024 Iron [Mass/Vol] 52 ug/dL Low 65-175 [facility] Comment on above: Performed By: #### L 503.6550, L503.6030, L100.9950, L100.0100 ####[facility] [address] [place], [address] IRON SATURATION 13.0 Normal 9-55 [facility] Comment on above: Performed By: #### L 503.6550, L503.6030, L100.9950, L100.0100 ####[facility] [address] [place], [address] TIBC 392 ug/dL Normal 250-450 [facility] Comment on above: Performed By: #### L 503.6550, L503.6030, L100.9950, L100.0100 ####[facility] [address] [place], [address] UIBC 340 ug/dL Normal 228-428 [facility] Comment on above: Performed By: #### L 503.6550, L503.6030, L100.9950, L100.0100 ####[facility] [address] [place], [address] MCV (mean corpuscular volume ) determinationOrdered By: Rito Lundberg on 11-03-2024 MCV (RBC) [Entitic vol] 82.0 fL 80-94 [facility] Mean corpuscular hemoglobin (MCH) determinationOrdered By: Rito Lundberg on 11-03-2024 MCH (RBC) [Entitic mass] 23.7 pg Low 27.0-32.0 [facility] Monocyte percentageOrdered B y: Rito Lundberg on 11-03-2024 Monocytes/100 WBC (Bld) 8.6 % 0-10 [facility] Neutrophil percentageOrdered By: Rito Lundberg on 11-03-2024 Neutrophils/100 WBC (Bld) 81.6 % High 47-70 [facility] No Panel InformationOrdered By: Rito Lundberg on 11-03-2024 340 ug/dL 228-428 [facility] Oncology Visit Reporton Oncology Visit Report Normal [facility] Platelet countOrdered By: Chanell Lundberg on 11-03-2024 Platelets (Bld) [#/Vol] 288 10*3/uL 150-450 [facility] RBC Auto (Bld) [#/Vol]Ordere d By: Rito Lundberg on 11-03-2024 RBC (Bld) [#/Vol] 4.22 10*6/uL Low 4.6-6.2 [facility] Retic Panelon 11-03-2024 IM RET FRACTION 28.30 High 3.00-15.90 [facility] Comment on above: Performed By: #### L 503.6550, L503.6030, L100.9950, L100.0100 ####[facility] [address] [place], [address] RET-HE 26.1 pg Low 30-35 [facility] Comment on above: Performed By: #### L 503.6550, L503.6030, L100.9950, L100.0100 ####[facility] [address] [place], [address] Retic Count 2.34 High 0.5-1.5 [facility] Comment on above: Performed By: #### L 503.6550, L503.6030, L100.9950, L100.0100 ####[facility] [address] [place], [address] Reticulocyte hemoglobin equi valent (RET-He) measurementOrdered By: Rito Lundberg on 11-03-2024 Hemoglobin (Reticulocytes) [Entitic mass] 26.1 pg Low 30-35 [facility] Reticulocytes Auto (Bld) [#/ Vol]Ordered By: Rito Lundberg on 11-03-2024 Reticulocytes/100 RBC (Bld) 2.34 % High 0.5-1.5 [facility] Serum or plasma ferritin elizabeth surement (mass/volume)Ordered By: Rito Lundberg on 11-03-2024 Ferritin [Mass/Vol] 124 ng/mL 37-417 [facility] Serum or plasma iron saturat ion measurement (mass fraction)Ordered By: Rito Lundberg on 11-03-2024 Iron saturation [Mass fraction] 13.0 % 9-55 [facility] White blood cell (WBC) count Ordered By: Rito Lundberg on 11-03-2024 WBC (Bld) [#/Vol] 19.2 10*3/uL High 4.4-11.0 [facility] 36on 10-27-2024 36 Called pharmacy, the y need additional refills sent in. Will pend and send a request to the provider. Normal [facility] Cardiology Visit Reporton Cardiology Visit Report Normal [facility] SP/HP.SP.Katelyn 10-23-2024 SP/HP.SP.EV Normal [facility] OT General Evaluationon 09-29 OT General Evaluation Normal [facility] Absolute lymphocyte countOrd ered By: Toni Reneenelson on 10-13-2024 Lymphocytes Auto (Unsp spec) [#/Vol] 0.70 10*3/uL Low 0.83-4.51 [facility] Anion gap in Serum or Plasma Ordered By: Toni Vann on 10-13-2024 Anion gap [Moles/Vol] 19 mmol/L High 08-13 [facility] Automated lymphocyte count a s percentage of total leukocytesOrdered By: Toni Vann on 10-13-2024 Lymphocytes/100 WBC Auto (Unsp spec) 5.2 % Low 19-41 [facility] BUN/creatinine ratioOrdered By: Toni Vann on 10-13-2024 Urea nitrogen/Creatinine [Mass ratio] 25.1 mg/mg High - [facility] Basic Metabolic Profile (BMP )on 10-13-2024 BUN/CRE 25.1 RATIO High - [facility] Comment on above: Order Comment: ALBERTO RICO GETS BMP BADDOUR GETS LIVER AND LIPID MARI ANDFIKE GET TSH ANS CBCD Performed By: #### L 501.9520, L500.4100, L500.3400, L100.0100, L506.0400, L500.2500 ####[facility] [address] [place], [address] Calcium [Mass/Vol] 9.2 mg/dL Normal 7.6-11.0 [facility] Comment on above: Order Comment: ALBERTO RICO GETS BMP BADDOUR GETS LIVER AND LIPID MARI ANDFIKE GET TSH ANS CBCD Performed By: #### L 501.9520, L500.4100, L500.3400, L100.0100, L506.0400, L500.2500 ####[facility] [address] [place], [address] Chloride [Moles/Vol] 95 mmol/L Low 98-108 [facility] Comment on above: Order Comment: ALBERTO RICO GETS BMP BADDOUR GETS LIVER AND LIPID MARI ANDFIKE GET TSH ANS CBCD Performed By: #### L 501.9520, L500.4100, L500.3400, L100.0100, L506.0400, L500.2500 ####[facility] [address] [place], [place], [phone] CO2 [Moles/Vol] 19.1 mmol/L Low 21.0-32.0 [facility] Comment on above: Order Comment: ALBERTO RICO GETS BMP BADDOUR GETS LIVER AND LIPID MARI ANDFIKE GET TSH ANS CBCD Performed By: #### L 501.9520, L500.4100, L500.3400, L100.0100, L506.0400, L500.2500 ####[facility] [address] [place], [place], [phone] Creatinine [Mass/Vol] 1.89 mg/dL High 0.70-1.20 [facility] Comment on above: Order Comment: ALBERTO RICO GETS BMP BADDOUR GETS LIVER AND LIPID MARI ANDFIKE GET TSH ANS CBCD Performed By: #### L 501.9520, L500.4100, L500.3400, L100.0100, L506.0400, L500.2500 ####[facility] [address] [place], [address] GAP 19 High 5-15 [facility] Comment on above: Order Comment: ALBERTO RICO GETS BMP BADDOUR GETS LIVER AND LIPID MARI ANDFIKE GET TSH ANS CBCD Performed By: #### L 501.9520, L500.4100, L500.3400, L100.0100, L506.0400, L500.2500 ####[facility] [address] [place], [place], [phone]) GFR/1.73 sq M.predicted among non-blacks MDRD (S/P/Bld) [Vol rate/Area] 40 mL/min/{1.73_m2} Low >60 [facility] Comment on above: Order Comment: ALBERTO RICO GETS BMP BADDOUR GETS LIVER AND LIPID MARI ANDFIKE GET TSH ANS CBCD Result Comment: mL/m in/1.73m2 CKD-EPI Creatinine Equation (2020) Performed By: #### L 501.9520, L500.4100, L500.3400, L100.0100, L506.0400, L500.2500 ####[facility] [address] [place], [address] Glucose [Mass/Vol] 490 mg/dL Invalid Interpretation Code 70-99 [facility] Comment on above: Order Comment: ALBERTO RICO GETS BMP BADDOUR GETS LIVER AND LIPID MARI ANDFIKE GET TSH ANS CBCD Result Comment: Crit ical Result(s) Called at: 1911 by:??JESSICA MISHRA TO Results read back by same. Performed By: #### L 501.9520, L500.4100, L500.3400, L100.0100, L506.0400, L500.2500 ####[facility] [address] [place], [address] Potassium [Moles/Vol] 4.0 mmol/L Normal 3.3-5.1 [facility] Comment on above: Order Comment: ALBERTO RICO GETS BMP BADDOUR GETS LIVER AND LIPID MARI ANDFIKE GET TSH ANS CBCD Performed By: #### L 501.9520, L500.4100, L500.3400, L100.0100, L506.0400, L500.2500 ####[facility] [address] [place], [address] Sodium [Moles/Vol] 133 mmol/L Normal 133-145 [facility] Comment on above: Order Comment: ALBERTO RICO GETS BMP BADDOUR GETS LIVER AND LIPID MARI ANDFIKE GET TSH ANS CBCD Performed By: #### L 501.9520, L500.4100, L500.3400, L100.0100, L506.0400, L500.2500 ####[facility] [address] [place], [address] Urea nitrogen [Mass/Vol] 48 mg/dL High - [facility] Comment on above: Order Comment: ALBERTO RICO GETS BMP NANCY GETS LIVER AND LIPID MARI ANDFIKE GET TSH ANS CBCD Performed By: #### L 501.9520, L500.4100, L500.3400, L100.0100, L506.0400, L500.2500 ####[facility] [address] [place], [address] BUN Normal - [facility] Comment on above: Result Comment: WRON G Performed By: #### L 500.2500 ####[facility] [address] [place], [address] BUN/CRE Normal - [facility] Comment on above: Result Comment: WRON G Performed By: #### L 500.2500 ####[facility] [address] [place], [address] Calcium Normal 7.6-11.0 [facility] Comment on above: Result Comment: WRON G Performed By: #### L 500.2500 ####[facility] [address] [place], [address] CL Normal 98-108 [facility] Comment on above: Result Comment: WRON G Performed By: #### L 500.2500 ####[facility] [address] [place], [address] CO2 Normal 21.0-32.0 [facility] Comment on above: Result Comment: WRON G Performed By: #### L 500.2500 ####[facility] [address] [place], [address] CREAT,SERUM Normal 0.70-1.20 [facility] Comment on above: Result Comment: WRON G Performed By: #### L 500.2500 ####[facility] [address] [place], [address] eGFR Normal >60 [facility] Comment on above: Result Comment: WRON G Performed By: #### L 500.2500 ####[facility] [address] [place], [address] GAP Normal 5-15 [facility] Comment on above: Result Comment: WRON G Performed By: #### L 500.2500 ####[facility] [address] [place], [address] GLU Normal 70-99 [facility] Comment on above: Result Comment: WRON G Performed By: #### L 500.2500 ####[facility] [address] [place], [address] Potassium Normal 3.3-5.1 [facility] Comment on above: Result Comment: WRON G Performed By: #### L 500.2500 ####[facility] [address] [place], [address] Basic Metabolic Profile (BMP) Normal 133-145 [facility] Comment on above: Result Comment: WRON G Performed By: #### L 500.2500 ####[facility] [address] [place], [address] Basophil percentageOrdered B y: Toni Vann on 10-13-2024 Basophils/100 WBC (Bld) 0.2 % 0-1 [facility] Bilirubin directOrdered By: Toni Vann on 10-13-2024 Bilirubin.direct [Mass/Vol] 0.16 mg/dL 0.00-0.30 [facility] Bilirubin, totalOrdered By: Toni Vann on 10-13-2024 Bilirubin [Mass/Vol] 0.33 mg/dL 0.00-1.30 [facility] CBC W/Diff, Automatedon 09-29 Absolute Lymph 0.70 X10 3/uL Low 0.83-4.51 [facility] Comment on above: Performed By: #### L 501.9520, L500.4100, L500.3400, L100.0100, L506.0400, L500.2500 ####[facility] [address] [place], [address] Absolute Neut 12.0 X10 3/uL High 2.0-7.7 [facility] Comment on above: Performed By: #### L 501.9520, L500.4100, L500.3400, L100.0100, L506.0400, L500.2500 ####[facility] [address] [place], [address] Basophils/100 WBC (Bld) 0.2 % Normal 0-1 [facility] Comment on above: Performed By: #### L 501.9520, L500.4100, L500.3400, L100.0100, L506.0400, L500.2500 ####[facility] [address] [place], [address] Eosinophils/100 WBC (Bld) 0.1 % Normal 0-5 [facility] Comment on above: Performed By: #### L 501.9520, L500.4100, L500.3400, L100.0100, L506.0400, L500.2500 ####[facility] [address] [place], [address] Erythrocyte distribution width (RBC) [Ratio] 17.4 % High 11.6-14.6 [facility] Comment on above: Performed By: #### L 501.9520, L500.4100, L500.3400, L100.0100, L506.0400, L500.2500 ####[facility] [address] [place], [address] Hematocrit (Bld) [Volume fraction] 33.4 % Low 40-54 [facility] Comment on above: Performed By: #### L 501.9520, L500.4100, L500.3400, L100.0100, L506.0400, L500.2500 ####[facility] [address] [place], [address] Hemoglobin (Bld) [Mass/Vol] 10.2 g/dL Low 13.0-16.5 [facility] Comment on above: Performed By: #### L 501.9520, L500.4100, L500.3400, L100.0100, L506.0400, L500.2500 ####[facility] [address] [place], [address] IG% 1.000 High 0.0-0.9 [facility] Comment on above: Result Comment: IG% - Immature Granulocytes (promyelocytes, myelocytes andmetamyelocytes) > 1% indicates that a LEFT SHIFT is Present. Performed By: #### L 501.9520, L500.4100, L500.3400, L100.0100, L506.0400, L500.2500 ####[facility] [address] [place], [address] Lymphocytes/100 WBC (Bld) 5.2 % Low 19-41 [facility] Comment on above: Performed By: #### L 501.9520, L500.4100, L500.3400, L100.0100, L506.0400, L500.2500 ####[facility] [address] [place], [address] MCH (RBC) [Entitic mass] 24.1 pg Low 27.0-32.0 [facility] Comment on above: Performed By: #### L 501.9520, L500.4100, L500.3400, L100.0100, L506.0400, L500.2500 ####[facility] [address] [place], [address] MCHC (RBC) [Mass/Vol] 30.5 g/dL Low 32-36 [facility] Comment on above: Performed By: #### L 501.9520, L500.4100, L500.3400, L100.0100, L506.0400, L500.2500 ####[facility] [address] [place], [address] MCV (RBC) [Entitic vol] 78.8 fL Low 80-94 [facility] Comment on above: Performed By: #### L 501.9520, L500.4100, L500.3400, L100.0100, L506.0400, L500.2500 ####[facility] [address] [place], [address] Monocytes/100 WBC (Bld) 4.2 % Normal 0-10 [facility] Comment on above: Performed By: #### L 501.9520, L500.4100, L500.3400, L100.0100, L506.0400, L500.2500 ####[facility] [address] [place], [address] Neutrophils/100 WBC (Bld) 89.3 % High 47-70 [facility] Comment on above: Performed By: #### L 501.9520, L500.4100, L500.3400, L100.0100, L506.0400, L500.2500 ####[facility] [address] [place], [address] Nucleated RBC (Bld) [#/Vol] 0 10*3/uL Normal 0-5 [facility] Comment on above: Performed By: #### L 501.9520, L500.4100, L500.3400, L100.0100, L506.0400, L500.2500 ####[facility] [address] [place], [address] Platelet mean volume (Bld) [Entitic vol] 9.8 fL Normal 6.2-12.0 [facility] Comment on above: Performed By: #### L 501.9520, L500.4100, L500.3400, L100.0100, L506.0400, L500.2500 ####[facility] [address] [place], [address] Platelets (Bld) [#/Vol] 296 10*3/uL Normal 150-450 [facility] Comment on above: Performed By: #### L 501.9520, L500.4100, L500.3400, L100.0100, L506.0400, L500.2500 ####[facility] [address] [place], [address] RBC (Bld) [#/Vol] 4.24 10*6/uL Low 4.6-6.2 [facility] Comment on above: Performed By: #### L 501.9520, L500.4100, L500.3400, L100.0100, L506.0400, L500.2500 ####[facility] [address] [place], [address] RDW SD 50.3 fl High 35.1-43.9 [facility] Comment on above: Performed By: #### L 501.9520, L500.4100, L500.3400, L100.0100, L506.0400, L500.2500 ####[facility] [address] [place], [address] WBC (Bld) [#/Vol] 13.4 10*3/uL High 4.4-11.0 [facility] Comment on above: Performed By: #### L 501.9520, L500.4100, L500.3400, L100.0100, L506.0400, L500.2500 ####[facility] [address] [place], [address] Calculated very low density lipoprotein (VLDL) cholesterol measurementOrdered By: Toni Vann on 10-13-2024 Calculated very low density lipoprotein (VLDL) cholesterol measurement 39 mg/dL 5-40 [facility] Carbon dioxide, total [Moles /volume] in Central venous bloodOrdered By: Toni Vann on 10-13-2024 CO2 [Moles/Vol] 19.1 mmol/L Low 21.0-32.0 [facility] Chloride assayOrdered By: Ra cassy Vann on 10-13-2024 Chloride [Moles/Vol] 95 mmol/L Low 98-108 [facility] Eosinophil percentageOrdered By: Toni Vann 10-13-2024 Eosinophils/100 WBC (Bld) 0.1 % 0-5 [facility] Erythrocyte distribution wid th ratioOrdered By: Toni Vann 10-13-2024 Erythrocyte distribution width (RBC) [Ratio] 17.4 % High 11.6-14.6 [facility] Erythrocyte distribution wid th standard deviationOrdered By: Toni Vann on 10-13-2024 Erythrocyte distribution width (RBC) [Ratio] 50.3 fl High 35.1-43.9 [facility] Glomerular filtration rate ( GFR) estimation/1.73 sq m using serum, plasma, or whole bOrdered By: Toni Vann on 10-13-2024 GFR/1.73 sq M.predicted among non-blacks MDRD (S/P/Bld) [Vol rate/Area] 40 mL/min/{1.73_m2} Low >60 [facility] Hematocrit Auto (Bld) [Volum e fraction]Ordered By: Toni Vann on 10-13-2024 Hematocrit (Bld) [Volume fraction] 33.4 % Low 40-54 [facility] Hemoglobin measurementOrdere d By: Toni Vann 10-13-2024 Hemoglobin (Bld) [Mass/Vol] 10.2 g/dL Low 13.0-16.5 [facility] Immature granulocytes/100 WB C Auto (Bld)Ordered By: Toni Vann 10-13-2024 Immature granulocytes/100 WBC (Bld) 1.000 % High 0.0-0.9 [facility] LDL calc ser/plasOrdered By: Toni Nancy on 10-13-2024 Cholesterol in LDL [Mass/Vol] 75 mg/dL [facility] Lipid Profileon 10-13-2024 CHOL:HDL 3.31 Normal [facility] Comment on above: Order Comment: ALBERTO RICO GETS BMP BADDOUR GETS LIVER AND LIPID MARI ANDFIKE GET TSH ANS CBCD Performed By: #### L 501.9520, L500.4100, L500.3400, L100.0100, L506.0400, L500.2500 ####[facility] [address] [place], [address] Cholesterol [Mass/Vol] 163 mg/dL Normal <=200 [facility] Comment on above: Order Comment: ALBERTO RICO GETS BMP BADDOUR GETS LIVER AND LIPID MARI ANDFIKE GET TSH ANS CBCD Result Comment: Chol esterol level, Desirable <200 mg/dLBorderline high cholesterol 200-239 mg/dLHigh cholesterol >=240 mg/dLRecommendations of the NCEP Adult Treatment Panel for thefollowing risk-cutoff thresholds for the [place] Americanpopulation. Performed By: #### L 501.9520, L500.4100, L500.3400, L100.0100, L506.0400, L500.2500 ####[facility] [address] [place], [address] Cholesterol in HDL [Mass/Vol] 49 mg/dL Normal [facility] Comment on above: Order Comment: ALBERTO RICO GETS BMP DERIKDOUR GETS LIVER AND LIPID MARI ANDFIKE GET TSH ANS CBCD Result Comment: Mary Ann onal Cholesterol Education Program (NCEP) guidelines:<40 mg/dL: Low HDL-cholesterol (major risk factor for CHD)>= 60 mg/dL: High HDL-cholesterol (negative risk factor forCHD)HDL-cholesterol is affected by a number of factors, e.g.smoking, exercise, hormones, sex and age. Performed By: #### L 501.9520, L500.4100, L500.3400, L100.0100, L506.0400, L500.2500 ####[facility] [address] [place], [address] Cholesterol in LDL [Mass/Vol] 75 mg/dL Normal [facility] Comment on above: Order Comment: ALBERTO RICO GETS BMP BADDOUR GETS LIVER AND LIPID MARI ANDFIKE GET TSH ANS CBCD Result Comment: Bord wmvygh=299-552 mg/dL Higher Utud=421 mg/dL or greater Performed By: #### L 501.9520, L500.4100, L500.3400, L100.0100, L506.0400, L500.2500 ####[facility] [address] [place], [address] Cholesterol in VLDL [Mass/Vol] 39 mg/dL Normal 5-40 [facility] Comment on above: Order Comment: ALBERTO RICO GETS BMP BADDOUR GETS LIVER AND LIPID MARI ANDFIKE GET TSH ANS CBCD Performed By: #### L 501.9520, L500.4100, L500.3400, L100.0100, L506.0400, L500.2500 ####[facility] [address] [place], [address] Triglyceride [Mass/Vol] 193 mg/dL Normal [facility] Comment on above: Order Comment: ALBERTO RICO GETS BMP BADDOUR GETS LIVER AND LIPID MARI ANDFIKE GET TSH ANS CBCD Result Comment: The drugs N-Acetylcysteine and Metamizole may falselydepress this assay.Normal range: <150 mg/dLBorderline High: 150-199 mg/dLHigh: 200-499 mg/dLVery High: >500 mg/dL Performed By: #### L 501.9520, L500.4100, L500.3400, L100.0100, L506.0400, L500.2500 ####[facility] [address] [place], [address] Liver Profileon 10-13-2024 Albumin [Mass/Vol] 3.9 g/dL Normal 3.4-4.8 [facility] Comment on above: Order Comment: ALBERTO RICO GETS BMP BADDOUR GETS LIVER AND LIPID MARI ANDFIKE GET TSH ANS CBCD Performed By: #### L 501.9520, L500.4100, L500.3400, L100.0100, L506.0400, L500.2500 ####[facility] [address] [place], [address] ALK PHOS 57 U/L Normal 40-129 [facility] Comment on above: Order Comment: ALBERTO RICO GETS BMP BADDOUR GETS LIVER AND LIPID MARI ANDFIKE GET TSH ANS CBCD Performed By: #### L 501.9520, L500.4100, L500.3400, L100.0100, L506.0400, L500.2500 ####[facility] [address] [place], [place], [phone] ALT [Catalytic activity/Vol] 17 U/L Normal <=46 [facility] Comment on above: Order Comment: ALBERTO RICO GETS BMP BADDOUR GETS LIVER AND LIPID MARI ANDFIKE GET TSH ANS CBCD Performed By: #### L 501.9520, L500.4100, L500.3400, L100.0100, L506.0400, L500.2500 ####[facility] [address] [place], [place], [phone] AST [Catalytic activity/Vol] 19 U/L Normal <=37 [facility] Comment on above: Order Comment: ALBERTO RICO GETS BMP BADDOUR GETS LIVER AND LIPID MARI ANDFIKE GET TSH ANS CBCD Performed By: #### L 501.9520, L500.4100, L500.3400, L100.0100, L506.0400, L500.2500 ####[facility] [address] [place], [address] Bilirubin [Mass/Vol] 0.33 mg/dL Normal 0.00-1.30 [facility] Comment on above: Order Comment: ALBERTO RICO GETS BMP BADDOUR GETS LIVER AND LIPID MARI ANDFIKE GET TSH ANS CBCD Performed By: #### L 501.9520, L500.4100, L500.3400, L100.0100, L506.0400, L500.2500 ####[facility] [address] [place], [address] Bilirubin.direct [Mass/Vol] 0.16 mg/dL Normal 0.00-0.30 [facility] Comment on above: Order Comment: ALBERTO RICO GETS BMP BADDOUR GETS LIVER AND LIPID MARI ANDFIKE GET TSH ANS CBCD Performed By: #### L 501.9520, L500.4100, L500.3400, L100.0100, L506.0400, L500.2500 ####[facility] [address] [place], [address] Globulin (S) [Mass/Vol] 3.7 g/dL Normal 2.2-4.2 [facility] Comment on above: Order Comment: ALBERTO RICO GETS BMP BADDOUR GETS LIVER AND LIPID MARI ANDFIKE GET TSH ANS CBCD Performed By: #### L 501.9520, L500.4100, L500.3400, L100.0100, L506.0400, L500.2500 ####[facility] [address] [place], [address] T PROT 7.6 g/dL Normal 5.9-8.4 [facility] Comment on above: Order Comment: ALBERTO RICO GETS BMP BADDOUR GETS LIVER AND LIPID MARI ANDFIKE GET TSH ANS CBCD Performed By: #### L 501.9520, L500.4100, L500.3400, L100.0100, L506.0400, L500.2500 ####[facility] [address] [place], [address] MCV (mean corpuscular volume ) determinationOrdered By: Toni Vann on 10-13-2024 MCV (RBC) [Entitic vol] 78.8 fL Low 80-94 [facility] Mean corpuscular hemoglobin (MCH) determinationOrdered By: Toni Vann on 10-13-2024 MCH (RBC) [Entitic mass] 24.1 pg Low 27.0-32.0 [facility] Monocyte percentageOrdered B y: Toni Vann on 10-13-2024 Monocytes/100 WBC (Bld) 4.2 % 0-10 [facility] Neutrophil percentageOrdered By: Toni Vann on 10-13-2024 Neutrophils/100 WBC (Bld) 89.3 % High 47-70 [facility] No Panel InformationOrdered By: Toni Vann on 10-13-2024 19 U/L <38 [facility] Platelet countOrdered By: Ra cassy Vann on 10-13-2024 Platelets (Bld) [#/Vol] 296 10*3/uL 150-450 [facility] Potassium measurement (mass/ volume)Ordered By: Toni Vann on 10-13-2024 Potassium (Unsp spec) [Mass/Vol] 4.0 mmol/L 3.3-5.1 [facility] RBC Auto (Bld) [#/Vol]Ordere d By: Toni Vann on 10-13-2024 RBC (Bld) [#/Vol] 4.24 10*6/uL Low 4.6-6.2 [facility] Serum creatinine measurement (mass/volume)Ordered By: Toni Vann on 10-13-2024 Creatinine [Mass/Vol] 1.89 mg/dL High 0.70-1.20 [facility] Serum globulin measurementOr dered By: Toni Vann on 10-13-2024 Globulin (S) [Mass/Vol] 3.7 g/dL 2.2-4.2 [facility] Serum glucose measurement (m ass/volume)Ordered By: Toni Vann on 10-13-2024 Glucose [Mass/Vol] 490 mg/dL High 70-99 [facility] Serum or plasma alanine briscoe otransferase (ALT) measurementOrdered By: Toni Vann on 10-13-2024 ALT [Catalytic activity/Vol] 17 U/L <47 [facility] Serum or plasma albumin grazyna urement (mass/volume)Ordered By: Toni Vann on 10-13-2024 Albumin [Mass/Vol] 3.9 g/dL 3.4-4.8 [facility] Serum or plasma alkaline benjamin sphatase measurementOrdered By: Toni Vann on 10-13-2024 ALP [Catalytic activity/Vol] 57 U/L 40-129 [facility] Serum or plasma calcium grazyna urement (mass/volume)Ordered By: Toni Vann on 10-13-2024 Calcium [Mass/Vol] 9.2 mg/dL 7.6-11.0 [facility] Serum or plasma cholesterol in HDL measurement (mass/volume)Ordered By: Toni Vann on 10-13-2024 Cholesterol in HDL [Mass/Vol] 49 mg/dL >40 [facility] Serum or plasma cholesterol measurement (mass/volume)Ordered By: Toni Vann on 10-13-2024 Cholesterol [Mass/Vol] 163 mg/dL <201 [facility] Serum or plasma urea nitroge n measurement (mass/volume)Ordered By: Toni Vann on 10-13-2024 Urea nitrogen [Mass/Vol] 48 mg/dL High 4-19 [facility] Sodium levelOrdered By: Adrienne Vann on 10-13-2024 Sodium [Moles/Vol] 133 mmol/L 133-145 [facility] T4 Free Directon 10-13-2024 T4 FREE DIRECT 1.40 ng/dL Normal 0.76-1.46 [facility] Comment on above: Order Comment: ALBERTO RICO GETS BMP NANCY GETS LIVER AND LIPID MARI ANDFILIZETT GET TSH ANS CBCD Performed By: #### L 501.9520, L500.4100, L500.3400, L100.0100, L506.0400, L500.2500 ####[facility] [address] [place], [place], [address] T4 freeOrdered By: Toni roque on 10-13-2024 Free T4 [Mass/Vol] 1.40 ng/dL 0.76-1.46 [facility] TSH DL <= 0.005 mIU/L QnOrde red By: Toni Reneenelson on 10-13-2024 TSH Qn 0.480 uIU/mL 0.300-4.200 [facility] Thyroid Stim Hormone (TSH)on 10-13-2024 TSH 0.480 uIU/mL Normal 0.300-4.200 [facility] Comment on above: Order Comment: ALBERTO RICO GETS BMP NANCY GETS LIVER AND LIPID MARI ANDFIKE GET TSH ANS CBCD Performed By: #### L 501.9520, L500.4100, L500.3400, L100.0100, L506.0400, L500.2500 ####[facility] [address] [place], [address] Total proteinOrdered By: Wilmar garrett Nancy on 10-13-2024 Protein [Mass/Vol] 7.6 g/dL 5.9-8.4 [facility] White blood cell (WBC) count Ordered By: Toni Nancy on 10-13-2024 WBC (Bld) [#/Vol] 13.4 10*3/uL High 4.4-11.0 [facility] Neurology Visit Reporton Neurology Visit Report Normal [facility] 36on 10-06-2024 36 Patient called in to let us know he went off of his AC and aspirin therapy to have a lung biopsy to potentially diagnose interstitial lung disease. The day after his biopsy (SaturdayOctober 02), he had a big stroke. He was told he was amira to walk away without severe deficits. The only deficit that remains is his left hand weakness. He says he can still manage a similar level of daily activities as he was prior to the recent stroke. He is now back on all blood thinners. He informed me he is requesting [facility] to electronically send over his MRI/CTA of most recent stroke. I told him to let me know if they want us to request it or if he has any trouble. He verbalized understanding. Normal [facility] Inital Evaluation (1) - PTon 10-05-2024 Inital Evaluation (1) - PT Normal [facility] Bedside Glucoseon 09-28-2024 FINGERSTICK GLU 361 mg/dL High 74-106 [facility] Comment on above: Result Comment: ANI GEMENT OF PATIENT CARE PER NURSING PROTOCOL Performed By: #### L 501.080 ####[facility] [address] [facility] [address] FINGERSTICK GLU 363 mg/dL High 74-106 [facility] Comment on above: Result Comment: ANI GEMENT OF PATIENT CARE PER NURSING PROTOCOL Performed By: #### L 501.080 ####[facility] [address] [facility] [address] FINGERSTICK GLU 232 mg/dL High -106 [facility] Comment on above: Result Comment: ANI GEMENT OF PATIENT CARE PER NURSING PROTOCOL Performed By: #### L 501.080 ####[facility] [address] [facility] [address] FINGERSTICK GLU 165 mg/dL High -106 [facility] Comment on above: Result Comment: ANI GEMENT OF PATIENT CARE PER NURSING PROTOCOL Performed By: #### L 501.080 ####[facility] [address] [facility] [address] Echocardiogram study reportO rdered By: Sarah Parada on 09-28-2024 Study report [facility] Work Phone: Glucose measurement at [facility] deOrdered By: Karina Benítez on 09-28-2024 Glucose [Mass/Vol] 232 mg/dL High 74-106 [facility] Absolute lymphocyte countOrd ered By: Xiao Berrios on 09-27-2024 Lymphocytes Auto (Unsp spec) [#/Vol] 2.19 10*3/uL 0.83-4.51 [facility] Anion gap in Serum or Plasma Ordered By: Xiao Berrios on 09-27-2024 Anion gap [Moles/Vol] 12 mmol/L 5-15 [facility] Automated lymphocyte count a s percentage of total leukocytesOrdered By: Xiao Berrios on 09-27-2024 Lymphocytes/100 WBC Auto (Unsp spec) 19.4 % 19-41 [facility] BUN/creatinine ratioOrdered By: Xiao Berrios on 09-27-2024 Urea nitrogen/Creatinine [Mass ratio] 22.7 mg/mg High 10-20 [facility] Basic Metabolic Profile (BMP )on 09-27-2024 BUN/CRE 22.7 RATIO High - [facility] Comment on above: Order Comment: Comme nts: [facility] prior to lipid panel Performed By: #### L 500.4100, L500.2500, L100.0100 ####[facility] [address] [place], [address] Calcium [Mass/Vol] 9.2 mg/dL Normal 7.6-11.0 [facility] Comment on above: Order Comment: Comme nts: N[facility] prior to lipid panel Performed By: #### L 500.4100, L500.2500, L100.0100 ####[facility] [address] [place], [address] Chloride [Moles/Vol] 102 mmol/L Normal 98-108 [facility] Comment on above: Order Comment: Comme nts: N[facility] prior [facility] lipid panel Performed By: #### L 500.4100, L500.2500, L100.0100 ####[facility] [address] [place], [address] CO2 [Moles/Vol] 24.8 mmol/L Normal 21.0-32.0 [facility] Comment on above: Order Comment: Comme nts: NPO [facility] prior to lipid panel Performed By: #### L 500.4100, L500.2500, L100.0100 ####[facility] [address] [place], [address] Creatinine [Mass/Vol] 1.19 mg/dL Normal 0.70-1.20 [facility] Comment on above: Order Comment: Comme nts: NPO [facility] prior to lipid panel Performed By: #### L 500.4100, L500.2500, L100.0100 ####[facility] [address] [place], [address] ECRCL 93.22 ml/min Normal 50-250 [facility] Comment on above: Order Comment: Comme nts: NPO at [place] prior to lipid panel Performed By: #### L 500.4100, L500.2500, L100.0100 ####[facility] [address] [place], [address] GAP 12 Normal 5-15 [facility] Comment on above: Order Comment: Comme nts: NPO at [place] prior to lipid panel Performed By: #### L 500.4100, L500.2500, L100.0100 ####[facility] [address] [place], [address] GFR/1.73 sq M.predicted among non-blacks MDRD (S/P/Bld) [Vol rate/Area] 69 mL/min/{1.73_m2} Normal >60 [facility] Comment on above: Order Comment: Comme nts: NPO at [place] prior to lipid panel Result Comment: mL/m in/1.73m2 CKD-EPI Creatinine Equation (2020) Performed By: #### L 500.4100, L500.2500, L100.0100 ####[facility] [id number] [place], [address] Glucose [Mass/Vol] 97 mg/dL Normal 70-99 [facility] Comment on above: Order Comment: Comme nts: NPO at [place] prior to lipid panel Performed By: #### L 500.4100, L500.2500, L100.0100 ####[facility] [id number] [place], [address] Potassium [Moles/Vol] 3.9 mmol/L Normal 3.3-5.1 [facility] Comment on above: Order Comment: Comme nts: [place] prior to lipid panel Result Comment: Hemo lysis present, Results??could be affected.?? Performed By: #### L 500.4100, L500.2500, L100.0100 ####[facility] [address] [place], [address] Sodium [Moles/Vol] 138 mmol/L Normal 133-145 [facility] Comment on above: Order Comment: Comme nts[facility] Performed By: #### L 500.4100, L500.2500, L100.0100 ####[facility] [address] [place], [address] Urea nitrogen [Mass/Vol] 27 mg/dL High 4-19 [facility] Comment on above: Order Comment: Comme nts: [facility] [place] [facility] Performed By: #### L 500.4100, L500.2500, L100.0100 ####[facility] [address] [place], [address] Basophil percentageOrdered B y: Xiaobakari Berrios on 09-27-2024 Basophils/100 WBC (Bld) 0.4 % 0-1 [facility] Bedside Glucoseon 09-27-2024 FINGERSTICK GLU 348 mg/dL High 74-106 [facility] Comment on above: Result Comment: ANI GEMENT OF PATIENT CARE PER NURSING PROTOCOL Performed By: #### L 501.080 ####[facility] [address] [place], [address] FINGERSTICK GLU 163 mg/dL High 74-106 [facility] Comment on above: Result Comment: ANI GEMENT OF PATIENT CARE PER NURSING PROTOCOL Performed By: #### L 501.080 ####[facility] [address] [place], [address] FINGERSTICK GLU 106 mg/dL Normal 74-106 [facility] Comment on above: Result Comment: ANI GEMENT OF PATIENT CARE PER NURSING PROTOCOL Performed By: #### L 501.080 ####[facility] [address] [place], [address] Brain without Contraston Brain without Contrast Normal [facility] CBC W/Diff, Automatedon - Absolute Lymph 2.19 X10 3/uL Normal 0.83-4.51 [facility] Comment on above: Performed By: #### L 500.4100, L500.2500, L100.0100 ####[facility] [address] [place], [address] Absolute Neut 7.8 X10 3/uL High 2.0-7.7 [facility] Comment on above: Performed By: #### L 500.4100, L500.2500, L100.0100 ####[facility] [address] [place], [address] Basophils/100 WBC (Bld) 0.4 % Normal 0-1 [facility] Comment on above: Performed By: #### L 500.4100, L500.2500, L100.0100 ####[facility] [address] [place], [address] Eosinophils/100 WBC (Bld) 1.7 % Normal 0-5 [facility] Comment on above: Performed By: #### L 500.4100, L500.2500, L100.0100 ####[facility] [address] [place], [address] Erythrocyte distribution width (RBC) [Ratio] 17.8 % High 11.6-14.6 [facility] Comment on above: Performed By: #### L 500.4100, L500.2500, L100.0100 ####[facility] [address] [place], [address] Hematocrit (Bld) [Volume fraction] 29.3 % Low 40-54 [facility] Comment on above: Performed By: #### L 500.4100, L500.2500, L100.0100 ####[facility] [address] [place], [address] Hemoglobin (Bld) [Mass/Vol] 8.9 g/dL Low 13.0-16.5 [facility] Comment on above: Performed By: #### L 500.4100, L500.2500, L100.0100 ####[facility] [address] [place], [address] IG% 0.700 Normal 0.0-0.9 [facility] Comment on above: Result Comment: IG% - Immature Granulocytes (promyelocytes, myelocytes andmetamyelocytes) > 1% indicates that a LEFT SHIFT is Present. Performed By: #### L 500.4100, L500.2500, L100.0100 ####[facility] [address] [place], [address] Lymphocytes/100 WBC (Bld) 19.4 % Normal 19-41 [facility] Comment on above: Performed By: #### L 500.4100, L500.2500, L100.0100 ####[facility] [address] [place], [address] MCH (RBC) [Entitic mass] 24.2 pg Low 27.0-32.0 [facility] Comment on above: Performed By: #### L 500.4100, L500.2500, L100.0100 ####[facility] [address] [place], [address] MCHC (RBC) [Mass/Vol] 30.4 g/dL Low 32-36 [facility] Comment on above: Performed By: #### L 500.4100, L500.2500, L100.0100 ####[facility] [address] [place], [address] MCV (RBC) [Entitic vol] 79.6 fL Low 80-94 [facility] Comment on above: Performed By: #### L 500.4100, L500.2500, L100.0100 ####[facility] [address] [place], [address] Monocytes/100 WBC (Bld) 8.9 % Normal 0-10 [facility] Comment on above: Performed By: #### L 500.4100, L500.2500, L100.0100 ####[facility] [address] [place], [address] Neutrophils/100 WBC (Bld) 68.9 % Normal 47-70 [facility] Comment on above: Performed By: #### L 500.4100, L500.2500, L100.0100 ####[facility] [address] [place], [address] Nucleated RBC (Bld) [#/Vol] 0 10*3/uL Normal 0-5 [facility] Comment on above: Performed By: #### L 500.4100, L500.2500, L100.0100 ####[facility] [address] [place], [address] Platelet mean volume (Bld) [Entitic vol] 9.8 fL Normal 6.2-12.0 [facility] Comment on above: Performed By: #### L 500.4100, L500.2500, L100.0100 ####[facility] [address] [place], [address] Platelets (Bld) [#/Vol] 214 10*3/uL Normal 150-450 [facility] Comment on above: Performed By: #### L 500.4100, L500.2500, L100.0100 ####[facility] [address] [place], [address] RBC (Bld) [#/Vol] 3.68 10*6/uL Low 4.6-6.2 [facility] Comment on above: Performed By: #### L 500.4100, L500.2500, L100.0100 ####[facility] [address] [place], [address] RDW SD 51.2 fl High 35.1-43.9 [facility] Comment on above: Performed By: #### L 500.4100, L500.2500, L100.0100 ####[facility] [address] [place], [address] WBC (Bld) [#/Vol] 11.3 10*3/uL High 4.4-11.0 [facility] Comment on above: Performed By: #### L 500.4100, L500.2500, L100.0100 ####[facility] [address] [place], [address] Calculated very low density lipoprotein (VLDL) cholesterol measurementOrdered By: Xiao Berrios on 09-27-2024 Calculated very low density lipoprotein (VLDL) cholesterol measurement 32 mg/dL 5-40 [facility] Carbon dioxide, total [Moles /volume] in Central venous bloodOrdered By: Xiao Berrios on 09-27-2024 CO2 [Moles/Vol] 24.8 mmol/L 21.0-32.0 [facility] Chloride assayOrdered By: Tunde Berrios on 09-27-2024 Chloride [Moles/Vol] 102 mmol/L 98-108 [facility] Eosinophil percentageOrdered By: Xiao Berrios on 09-27-2024 Eosinophils/100 WBC (Bld) 1.7 % 0-5 [facility] Erythrocyte distribution wid th ratioOrdered By: Xiao Berrios on 09-27-2024 Erythrocyte distribution width (RBC) [Ratio] 17.8 % High 11.6-14.6 [facility] Erythrocyte distribution wid th standard deviationOrdered By: Xiao Berrios on 09-27-2024 Erythrocyte distribution width (RBC) [Ratio] 51.2 fl High 35.1-43.9 [facility] Glomerular filtration rate ( GFR) estimation/1.73 sq m using serum, plasma, or whole bOrdered By: Xiao Berrios on 09-27-2024 GFR/1.73 sq M.predicted among non-blacks MDRD (S/P/Bld) [Vol rate/Area] 69 mL/min/{1.73_m2} >60 [facility] Hematocrit Auto (Bld) [Volum e fraction]Ordered By: Xiao Berrios on 09-27-2024 Hematocrit (Bld) [Volume fraction] 29.3 % Low 40-54 [facility] Hemoglobin A1con 09-27-2024 HbA1c (Bld) [Mass fraction] 8.4 % High <=5.6 [facility] Comment on above: Result Comment: Norm al < 5.7 % Prediabetic 5.7 - 6.4 % Diabetic >or= 6.5 % Please note range changes. Performed By: #### L 501.9985 ####[facility] [address] [place], [place], [id number] Hemoglobin A1c percentageOrd ered By: Xiao Berrios on 09-27-2024 HbA1c (Bld) [Mass fraction] 8.4 % High <5.7 [facility] Hemoglobin measurementOrdere d By: Xiao Berrios on 09-27-2024 Hemoglobin (Bld) [Mass/Vol] 8.9 g/dL Low 13.0-16.5 [facility] Immature granulocytes/100 WB C Auto (Bld)Ordered By: Xiao Berrios on 09-27-2024 Immature granulocytes/100 WBC (Bld) 0.700 % 0.0-0.9 [facility] LDL calc ser/plasOrdered By: Xiao Berrios on 09-27-2024 Cholesterol in LDL [Mass/Vol] 64 mg/dL [facility] Lipid Profileon 09-27-2024 CHOL:HDL 2.83 Normal [facility] Comment on above: Order Comment: Comme nts: [facility] Performed By: #### L 500.4100, L500.2500, L100.0100 ####[facility] [address] [place], [place], [id number] Cholesterol [Mass/Vol] 148 mg/dL Normal <=200 [facility] Comment on above: Order Comment: Comme nts: [place] prior to [place] panel Result Comment: Chol esterol level, Desirable <200 mg/dLBorderline high cholesterol 200-239 mg/dLHigh cholesterol >=240 mg/dLRecommendations of the NCEP Adult Treatment Panel for thefollowing risk-cutoff thresholds for the [place] Americanpopulation. Performed By: #### L 500.4100, L500.2500, L100.0100 ####[facility] [address] [place], [address] Cholesterol in HDL [Mass/Vol] 52 mg/dL Normal [facility] Comment on above: Order Comment: Comme nts: [place] prior to [place] panel Result Comment: Mary Ann onal Cholesterol Education Program (NCEP) guidelines:<40 mg/dL: Low HDL-cholesterol (major risk factor for CHD)>= 60 mg/dL: High HDL-cholesterol (negative risk factor forCHD)HDL-cholesterol is affected by a number of factors, e.g.smoking, exercise, hormones, sex and age. Performed By: #### L 500.4100, L500.2500, L100.0100 ####[facility] [address] [place], [address] Cholesterol in LDL [Mass/Vol] 64 mg/dL Normal [facility] Comment on above: Order Comment: Comme nts: [place] prior to [place] panel Result Comment: Bord oijvfg=809-130 mg/dL Higher Nsja=393 mg/dL or greater Performed By: #### L 500.4100, L500.2500, L100.0100 ####[facility] [address] [place], [address] Cholesterol in VLDL [Mass/Vol] 32 mg/dL Normal 5-40 [facility] Comment on above: Order Comment: Comme nts: [place] prior to [place] panel Performed By: #### L 500.4100, L500.2500, L100.0100 ####[facility] [address] [place], [address] Triglyceride [Mass/Vol] 159 mg/dL Normal [facility] Comment on above: Order Comment: Comme nts: [facility] [facility] Result Comment: The drugs N-Acetylcysteine and Metamizole may falselydepress this assay.Normal range: <150 mg/dLBorderline High: 150-199 mg/dLHigh: 200-499 mg/dLVery High: >500 mg/dL Performed By: #### L 500.4100, L500.2500, L100.0100 ####[facility] [address] [place], [place], [id number] MCV (mean corpuscular volume ) determinationOrdered By: Xiao Berrios on 09-27-2024 MCV (RBC) [Entitic vol] 79.6 fL Low 80-94 [facility] MR/CON.PCM.NEon 09-27-2024 MR/CON.PCM.NE Normal [facility] Magnetic resonance imaging r eportOrdered By: Rosita Newberry on 09-27-2024 Study report [facility] Mean corpuscular hemoglobin (MCH) determinationOrdered By: Xiao Berrios on 09-27-2024 MCH (RBC) [Entitic mass] 24.2 pg Low 27.0-32.0 [facility] Monocyte percentageOrdered B y: Xiao Berrios on 09-27-2024 Monocytes/100 WBC (Bld) 8.9 % 0-10 [facility] Neutrophil percentageOrdered By: Xiao Berrios on 09-27-2024 Neutrophils/100 WBC (Bld) 68.9 % 47-70 [facility] Platelet countOrdered By: Tunde Berrios on 09-27-2024 Platelets (Bld) [#/Vol] 214 10*3/uL 150-450 [facility] Potassium measurement (mass/ volume)Ordered By: Xiao Berrios on 09-27-2024 Potassium (Unsp spec) [Mass/Vol] 3.9 mmol/L 3.3-5.1 [facility] RBC Auto (Bld) [#/Vol]Ordere d By: Xiao Berrios on 09-27-2024 RBC (Bld) [#/Vol] 3.68 10*6/uL Low 4.6-6.2 [facility] Serum creatinine measurement (mass/volume)Ordered By: Xiao Berrios on 09-27-2024 Creatinine [Mass/Vol] 1.19 mg/dL 0.70-1.20 [facility] Serum glucose measurement (m ass/volume)Ordered By: Xiao Berrios on 09-27-2024 Glucose [Mass/Vol] 97 mg/dL 70-99 [facility] Serum or plasma calcium grazyna urement (mass/volume)Ordered By: Xiao Berrios on 09-27-2024 Calcium [Mass/Vol] 9.2 mg/dL 7.6-11.0 [facility] Serum or plasma cholesterol in HDL measurement (mass/volume)Ordered By: Xiao Berrios on 09-27-2024 Cholesterol in HDL [Mass/Vol] 52 mg/dL >40 [facility] Serum or plasma cholesterol measurement (mass/volume)Ordered By: Xiao Berrios on 09-27-2024 Cholesterol [Mass/Vol] 148 mg/dL <201 [facility] Serum or plasma urea nitroge n measurement (mass/volume)Ordered By: Xiao Berrios on 09-27-2024 Urea nitrogen [Mass/Vol] 27 mg/dL High 4-19 [facility] Sodium levelOrdered By: Irwin Berrios on 09-27-2024 Sodium [Moles/Vol] 138 mmol/L 133-145 [facility] White blood cell (WBC) count Ordered By: Xiao Berrios on 09-27-2024 WBC (Bld) [#/Vol] 11.3 10*3/uL High 4.4-11.0 [facility] 12 Lead EKGon 09-26-2024 12 Lead EKG Normal [facility] Absolute lymphocyte countOrd ered By: Angel Avitia on 09-26-2024 Lymphocytes Auto (Unsp spec) [#/Vol] 0.58 10*3/uL Low 0.83-4.51 [facility] Absolute neutrophil countOrd ered By: Angel Avitia on 09-26-2024 Neutrophils (Bld) [#/Vol] 11.9 10*3/uL High 2.0-7.7 [facility] Activated partial thrombopla stin time (aPTT) in platelet poor plasma by coagulation aOrdered By: Angel Avitia on 09-26-2024 aPTT Coag (PPP) [Time] 20.8 s Low 24.1-36.2 [facility] Anion gap in Serum or Plasma Ordered By: Angel Avitia on 09-26-2024 Anion gap [Moles/Vol] 15 mmol/L 5-15 [facility] Automated lymphocyte count a s percentage of total leukocytesOrdered By: Angel Avitia on 09-26-2024 Lymphocytes/100 WBC Auto (Unsp spec) 4.2 % Low 19-41 [facility] BUN/creatinine ratioOrdered By: Angelmelisa Avitia on 09-26-2024 Urea nitrogen/Creatinine [Mass ratio] 24.6 mg/mg High 10-20 [facility] Basic Metabolic Profile (BMP )on 09-26-2024 BUN/CRE 24.6 RATIO High 10-20 [facility] Comment on above: Performed By: #### L 300.4310, L100.0100, L500.2500, L501.4021, L300.3900 ####[facility] [address] [place], [address] Calcium [Mass/Vol] 9.0 mg/dL Normal 7.6-11.0 [facility] Comment on above: Performed By: #### L 300.4310, L100.0100, L500.2500, L501.4021, L300.3900 ####[facility] [address] [place], [address] Chloride [Moles/Vol] 100 mmol/L Normal 98-108 [facility] Comment on above: Performed By: #### L 300.4310, L100.0100, L500.2500, L501.4021, L300.3900 ####[facility] [address] [place], [address] CO2 [Moles/Vol] 22.9 mmol/L Normal 21.0-32.0 [facility] Comment on above: Performed By: #### L 300.4310, L100.0100, L500.2500, L501.4021, L300.3900 ####[facility] [address] [place], [address] Creatinine [Mass/Vol] 1.26 mg/dL High 0.70-1.20 [facility] Comment on above: Performed By: #### L 300.4310, L100.0100, L500.2500, L501.4021, L300.3900 ####[facility] [address] [place], [address] GAP 15 Normal 5-15 [facility] Comment on above: Performed By: #### L 300.4310, L100.0100, L500.2500, L501.4021, L300.3900 ####[facility] [address] [place], [address] GFR/1.73 sq M.predicted among non-blacks MDRD (S/P/Bld) [Vol rate/Area] 65 mL/min/{1.73_m2} Normal >60 [facility] Comment on above: Result Comment: mL/m in/1.73m2 CKD-EPI Creatinine Equation (2020) Performed By: #### L 300.4310, L100.0100, L500.2500, L501.4021, L300.3900 ####[facility] [address] [place], [address] Glucose [Mass/Vol] 246 mg/dL High 70-99 [facility] Comment on above: Performed By: #### L 300.4310, L100.0100, L500.2500, L501.4021, L300.3900 ####[facility] [address] [place], [address] Potassium [Moles/Vol] 4.2 mmol/L Normal 3.3-5.1 [facility] Comment on above: Result Comment: Hemo lysis present, Results??could be affected.?? Performed By: #### L 300.4310, L100.0100, L500.2500, L501.4021, L300.3900 ####[facility] [address] [place], [address] Sodium [Moles/Vol] 138 mmol/L Normal 133-145 [facility] Comment on above: Performed By: #### L 300.4310, L100.0100, L500.2500, L501.4021, L300.3900 ####[facility] [address] [place], [address] Urea nitrogen [Mass/Vol] 31 mg/dL High 4-19 [facility] Comment on above: Performed By: #### L 300.4310, L100.0100, L500.2500, L501.4021, L300.3900 ####[facility] [address] [place], [address] Basophil percentageOrdered B y: Angel Avitia on 09-26-2024 Basophils/100 WBC (Bld) 0.4 % 0-1 [facility] Bedside Glucoseon 09-26-2024 FINGERSTICK GLU 172 mg/dL High 74-106 [facility] Comment on above: Result Comment: ANI NELSONENT OF PATIENT CARE PER NURSING PROTOCOL Performed By: #### L 501.080 ####[facility] [address] [place], [address] CBC W/Diff, Automatedon 08-31 Absolute Lymph 0.58 X10 3/uL Low 0.83-4.51 [facility] Comment on above: Performed By: #### L 300.4310, L100.0100, L500.2500, L501.4021, L300.3900 ####[facility] [address] [place], [address] Absolute Neut 11.9 X10 3/uL High 2.0-7.7 [facility] Comment on above: Performed By: #### L 300.4310, L100.0100, L500.2500, L501.4021, L300.3900 ####[facility] [address] [place], [address] Basophils/100 WBC (Bld) 0.4 % Normal 0-1 [facility] Comment on above: Performed By: #### L 300.4310, L100.0100, L500.2500, L501.4021, L300.3900 ####[facility] [address] [place], [address] Eosinophils/100 WBC (Bld) 0.6 % Normal 0-5 [facility] Comment on above: Performed By: #### L 300.4310, L100.0100, L500.2500, L501.4021, L300.3900 ####[facility] [address] [place], [address] Erythrocyte distribution width (RBC) [Ratio] 17.9 % High 11.6-14.6 [facility] Comment on above: Performed By: #### L 300.4310, L100.0100, L500.2500, L501.4021, L300.3900 ####[facility] [address] [place], [address] Hematocrit (Bld) [Volume fraction] 30.0 % Low 40-54 [facility] Comment on above: Performed By: #### L 300.4310, L100.0100, L500.2500, L501.4021, L300.3900 ####[facility] [address] [place], [address] Hemoglobin (Bld) [Mass/Vol] 9.1 g/dL Low 13.0-16.5 [facility] Comment on above: Performed By: #### L 300.4310, L100.0100, L500.2500, L501.4021, L300.3900 ####[facility] [address] [place], [address] IG% 0.800 Normal 0.0-0.9 [facility] Comment on above: Result Comment: IG% - Immature Granulocytes (promyelocytes, myelocytes andmetamyelocytes) > 1% indicates that a LEFT SHIFT is Present. Performed By: #### L 300.4310, L100.0100, L500.2500, L501.4021, L300.3900 ####[facility] [address] [place], [address] Lymphocytes/100 WBC (Bld) 4.2 % Low 19-41 [facility] Comment on above: Performed By: #### L 300.4310, L100.0100, L500.2500, L501.4021, L300.3900 ####[facility] [address] [place], [address] MCH (RBC) [Entitic mass] 24.0 pg Low 27.0-32.0 [facility] Comment on above: Performed By: #### L 300.4310, L100.0100, L500.2500, L501.4021, L300.3900 ####[facility] [address] [place], [address] MCHC (RBC) [Mass/Vol] 30.3 g/dL Low 32-36 [facility] Comment on above: Performed By: #### L 300.4310, L100.0100, L500.2500, L501.4021, L300.3900 ####[facility] [address] [place], [address] MCV (RBC) [Entitic vol] 79.2 fL Low 80-94 [facility] Comment on above: Performed By: #### L 300.4310, L100.0100, L500.2500, L501.4021, L300.3900 ####[facility] [address] [place], [address] Monocytes/100 WBC (Bld) 8.7 % Normal 0-10 [facility] Comment on above: Performed By: #### L 300.4310, L100.0100, L500.2500, L501.4021, L300.3900 ####[facility] [address] [place], [address] Neutrophils/100 WBC (Bld) 85.3 % High 47-70 [facility] Comment on above: Performed By: #### L 300.4310, L100.0100, L500.2500, L501.4021, L300.3900 ####[facility] [address] [place], [address] Nucleated RBC (Bld) [#/Vol] 0 10*3/uL Normal 0-5 [facility] Comment on above: Performed By: #### L 300.4310, L100.0100, L500.2500, L501.4021, L300.3900 ####[facility] [address] [place], [address] Platelet mean volume (Bld) [Entitic vol] 10.4 fL Normal 6.2-12.0 [facility] Comment on above: Performed By: #### L 300.4310, L100.0100, L500.2500, L501.4021, L300.3900 ####[facility] [address] [place], [address] Platelets (Bld) [#/Vol] 237 10*3/uL Normal 150-450 [facility] Comment on above: Performed By: #### L 300.4310, L100.0100, L500.2500, L501.4021, L300.3900 ####[facility] [address] [place], [address] RBC (Bld) [#/Vol] 3.79 10*6/uL Low 4.6-6.2 [facility] Comment on above: Performed By: #### L 300.4310, L100.0100, L500.2500, L501.4021, L300.3900 ####[facility] [address] [place], [address] RDW SD 50.9 fl High 35.1-43.9 [facility] Comment on above: Performed By: #### L 300.4310, L100.0100, L500.2500, L501.4021, L300.3900 ####[facility] [address] [place], [address] WBC (Bld) [#/Vol] 14.0 10*3/uL High 4.4-11.0 [facility] Comment on above: Performed By: #### L 300.4310, L100.0100, L500.2500, L501.4021, L300.3900 ####[facility] [id number] [place], [address] Carbon dioxide, total [Moles /volume] in Central venous bloodOrdered By: Angel Avitia on 09-26-2024 CO2 [Moles/Vol] 22.9 mmol/L 21.0-32.0 [facility] Chloride assayOrdered By: Ug o Avitia on 09-26-2024 Chloride [Moles/Vol] 100 mmol/L 98-108 [facility] Echo Complete W/ Contraston 09-26-2024 Echo Complete W/ Contrast Normal [facility] Emergency Department Summary on 09-26-2024 Emergency Department Summary Normal [facility] Eosinophil percentageOrdered By: Angel Avitia on 09-26-2024 Eosinophils/100 WBC (Bld) 0.6 % 0-5 [facility] Erythrocyte distribution wid th ratioOrdered By: Angel Avitia on 09-26-2024 Erythrocyte distribution width (RBC) [Ratio] 17.9 % High 11.6-14.6 [facility] Erythrocyte distribution wid th standard deviationOrdered By: Angel Avitia on 09-26-2024 Erythrocyte distribution width (RBC) [Ratio] 50.9 fl High 35.1-43.9 [facility] Glomerular filtration rate ( GFR) estimation/1.73 sq m using serum, plasma, or whole bOrdered By: Angel Avitia on 09-26-2024 GFR/1.73 sq M.predicted among non-blacks MDRD (S/P/Bld) [Vol rate/Area] 65 mL/min/{1.73_m2} >60 [facility] Comment on above: mL/min/1.73m2 CKD-EP I Creatinine Equation (2020) H AND P Exam - Hospital[place] 09-26-2024 H&P Exam - Hospitalist Normal [facility] Hematocrit Auto (Bld) [Volum e fraction]Ordered [facility]: [facility] on 09-26-2024 Hematocrit (Bld) [Volume fraction] 30.0 % Low 40-54 [facility] Hemoglobin measurementOrdere d By: Angel Avitia on 09-26-2024 Hemoglobin (Bld) [Mass/Vol] 9.1 g/dL Low 13.0-16.5 [facility] Immature granulocytes/100 WB C Auto (Bld)Ordered By: [facility] on 09-26-2024 Immature granulocytes/100 WBC (Bld) 0.800 % 0.0-0.9 [facility] Comment on above: IG% - Immature Granu locytes (promyelocytes, myelocytes and metamyelocytes) > 1% indicates that a LEFT SHIFT is Present. International normalized rat io (INR) calculationOrdered By: [facility] on 09-26-2024 INR Coag (Bld) [Relative time] 1.0 {INR} [facility] L499.0042on 09-26-2024 Trop T High Sen 42 ng/L High <=22 [facility] Comment on above: Performed By: #### L 499.0042 ####[facility] [address] [place], [address] L499.0043on 09-26-2024 Trop T High Sen 40 ng/L High <=22 [facility] Comment on above: Result Comment: Hemo lysis present, Results??could be affected.?? Performed By: #### L 499.0043 ####[facility] [address] [place], [address] L501.4021on 09-26-2024 Trop T High Sen 47 ng/L High <=22 [facility] Comment on above: Performed By: #### L 300.4310, L100.0100, L500.2500, L501.4021, L300.3900 ####[facility] [address] [place], [address] MCV (mean corpuscular volume ) determinationOrdered By: Angel Avitia on 09-26-2024 MCV (RBC) [Entitic vol] 79.2 fL Low 80-94 [facility] Mean corpuscular hemoglobin (MCH) determinationOrdered By: [facility] on 09-26-2024 MCH (RBC) [Entitic mass] 24.0 pg Low 27.0-32.0 [facility] Mean corpuscular hemoglobin concentration (MCHC) determinationOrdered By: [facility] on 09-26-2024 MCHC (RBC) [Mass/Vol] 30.3 g/dL Low 32-36 [facility] Mean platelet volume determi nationOrdered By: Angel Avitia on 09-26-2024 Platelet mean volume (Bld) [Entitic vol] 10.4 fL 6.2-12.0 [facility] Monocyte percentageOrdered B y: [facility] on 09-26-2024 Monocytes/100 WBC (Bld) 8.7 % 0-10 [facility] Neutrophil percentageOrdered By: [facility] on 09-26-2024 Neutrophils/100 WBC (Bld) 85.3 % High 47-70 [facility] Nucleated red blood cell per centageOrdered By: Angel Avitia on 09-26-2024 Nucleated RBC/100 WBC (Bld) [Ratio] 0 % 0-5 [facility] Partial Thromboplast Timeon 09-26-2024 aPTT Coag (Bld) [Time] 20.8 s Low 24.1-36.2 [facility] Comment on above: Performed By: #### L 300.4310, L100.0100, L500.2500, L501.4021, L300.3900 ####[facility] [address] [place], [address] Platelet countOrdered By: Domonique Avitia on 09-26-2024 Platelets (Bld) [#/Vol] 237 10*3/uL 150-450 [facility] Potassium measurement (mass/ volume)Ordered By: Angel Avitia on 09-26-2024 Potassium (Unsp spec) [Mass/Vol] 4.2 mmol/L 3.3-5.1 [facility] Comment on above: Hemolysis present, R esults could be affected. Prothrombin Time w/INRon INR Coag (PPP) [Relative time] 1.0 {INR} Normal [facility] Comment on above: Performed By: #### L 300.4310, L100.0100, L500.2500, L501.4021, L300.3900 ####[facility] [address] [place], [address] PT Coag (PPP) [Time] 13.1 s Normal 11.7-14.9 [facility] Comment on above: Performed By: #### L 300.4310, L100.0100, L500.2500, L501.4021, L300.3900 ####[facility] [address] [place], [address] Prothrombin timeOrdered By: Angel Avitia on 09-26-2024 PT Coag (PPP) [Time] 13.1 s 11.7-14.9 [facility] RBC Auto (Bld) [#/Vol]Ordere d By: Angel Avitia on 09-26-2024 RBC (Bld) [#/Vol] 3.79 10*6/uL Low 4.6-6.2 [facility] STROKE Brain/Head without Co nton 09-26-2024 STROKE Brain/Head without Cont Normal [facility] STROKE CTA Head AND Neck W/C onon 09-26-2024 STROKE CTA Head AND Neck W/Con Normal [facility] Serum creatinine measurement (mass/volume)Ordered By: Angelmelisa Avitia on 09-26-2024 Creatinine [Mass/Vol] 1.26 mg/dL High 0.70-1.20 [facility] Serum glucose measurement (m ass/volume)Ordered By: Angelmelisa Avitia on 09-26-2024 Glucose [Mass/Vol] 246 mg/dL High 70-99 [facility] Serum or plasma calcium grazyna urement (mass/volume)Ordered By: [facility] on 09-26-2024 Calcium [Mass/Vol] 9.0 mg/dL 7.6-11.0 [facility] Serum or plasma urea nitroge n measurement (mass/volume)Ordered By: Angel Avitia on 09-26-2024 Urea nitrogen [Mass/Vol] 31 mg/dL High 4-19 [facility] Sodium levelOrdered By: Angel Avitia on 09-26-2024 Sodium [Moles/Vol] 138 mmol/L 133-145 [facility] Troponin T.cardiac [Mass/vol ume] in Serum or Plasma by High sensitivity methodOrdered By: Angelmelisa Avitia on 09-26-2024 Troponin T.cardiac High sensitivity method [Mass/Vol] 40 ng/L High <22 [facility] Troponin T.cardiac High sensitivity method [Mass/Vol] 42 ng/L High <22 [facility] Troponin T.cardiac High sensitivity method [Mass/Vol] 47 ng/L High <22 [facility] White blood cell (WBC) count Ordered By: Angel Avitia on 09-26-2024 WBC (Bld) [#/Vol] 14.0 10*3/uL High 4.4-11.0 [facility] ASPERGILLUS GALACTOMANNAN EI A (NON-BLOOD SPECIMEN)on 09-24-2024 Galactomannan Ag IA Qn 0.027 Normal <0.500 [facility] Comment on above: Result Comment: Inte rpretation: [...] Aspergillus Galactomannan EIA is a product of [employer] and is FDA approved for in vitro diagnostic use. Testing Performed at: [facility] [address] [place] [address] [employer] Attendant: José Harris, PhD [facility] ([facility]) IA # [id number] FLAG Interpretation: A = Abnormal, H = High, L = Low Performed By: #### A SPQN ####[facility] ([id number])70358 [place] [address] BASIC METABOLIC PANEL WITH A NION GAPon 09-24-2024 Calcium [Mass/Vol] 8.7 mg/dL Normal 8.6-10.3 [facility] Comment on above: Order Comment: FASTI NG:NO FASTING: NO Performed By: #### 2 27, 3438, 4420, 39522, 809, 98616, 374 #### [facility] [address] [facility], [address] [place] [address] [employer] Analyst: Octavio Segovia MD #### [phone], [phone] #### [facility] [address] [place] [address] [employer] Analyst: Alejandra Queen MD,PhD,FADIA #### [id number] #### [facility] [place] [place] [employer] Analyst: Waldemar Billy M.D.,PhD Chloride [Moles/Vol] 102 mmol/L Normal 98-110 [facility] Comment on above: Order Comment: FASTI NG:NO FASTING: NO Performed By: #### 2 27, 4418, 4420, 43977, 809, 67333, 374 #### [facility] [address], [address] [place] [address] [employer] Analyst: Octavio Segovia MD #### [id number], [phone] #### [facility], [address] [place] [address] [employer] Analyst: Alejandra Queen MD,PhD,FADIA #### [phone] #### [facility]/[address] [place], [place] [employer] Analyst: Waldemar Billy M.D.,PhD CO2 [Moles/Vol] 20 mmol/L Normal 20-32 [facility] Comment on above: Order Comment: FASTI NG:NO FASTING: NO Performed By: #### 2 27, 4418, 4420, 18904, 809, 66922, 374 #### [facility] [address], [address] [place] [address] [employer] Analyst: Octavio Segovia MD #### [phone], [phone] #### [facility], [address] [place], [place] [employer] Analyst: Alejandra Queen MD,PhD,FADIA #### [id number] #### [facility]/[address] [place] [employer] Analyst: Waldemar Billy M.D.,PhD Creatinine [Mass/Vol] 1.49 mg/dL High 0.70-1.[address] [facility] Comment on above: Order Comment: FASTI NG:NO FASTING: NO Performed By: #### 2 27, 4418, 4420, 88830, 809, 80731, 374 #### [facility] [address], [address] [place] [address] [employer] Analyst: Octavio Segovia MD #### [phone], [phone] #### [facility], [address] [place] [address] [employer] Analyst: Alejandra Queen MD,PhD,FADIA #### [id number] #### [facility]/[address] [place], [place] [employer] Analyst: Waldemar Billy M.D.,PhD ELECTROLYTE BALANCE 14 mmol/L (calc) Normal 7-17 [facility] Comment on above: Order Comment: FASTI NG:NO FASTING: NO Performed By: #### 2 27, 4418, 4420, 89609, 809, 35269, 374 #### [facility] [address], [address] [place] [address] [employer] Analyst: Octavio Segovia MD #### [phone], [phone] #### [facility], [address] [place] [address] [employer] Analyst: Alejandra Queen MD,PhD,FADIA #### [id number] #### [facility]/[address] [place], [place] [employer] Analyst: Waldemar Billy M.D.,PhD GFR/1.73 sq M.predicted among non-blacks MDRD (S/P/Bld) [Vol rate/Area] 53 mL/min/{1.73_m2} Low > OR = 60 [facility] Comment on above: Order Comment: FASTI NG:NO FASTING: NO Performed By: #### 2 27, 4418, 4420, 44106, 809, 98741, 374 #### [facility] [address], [address] [place] [address] [employer] Analyst: Octavio Segovia MD #### [phone], [phone] #### [facility]/[place] [address] [place], [place] [employer] Analyst: Alejandra Queen MD,PhD,FADIA #### [id number] #### [facility] [address] [place], [place] [employer] Analyst: Waldemar Billy M.D.,PhD Glucose [Mass/Vol] 304 mg/dL High 65-99 [facility] Comment on above: Order Comment: FASTI NG:NO FASTING: NO Result Comment: Fasting reference interval For someone without known diabetes, a glucose value >125 mg/dL indicates that they may have diabetes and this should be confirmed with a follow-up test. Performed By: #### 2 27, 4418, 4420, 78878, 809, 66417, 374 #### [facility] [address], [address] [place], [place] [address] [employer] Analyst: Octavio Segovia MD #### [phone], 06400 #### [facility]/[address] [employer] Analyst: Alejandra Queen MD,PhD,FADIA #### [phone] #### [facility] [address] [place], [place] [employer] Analyst: Waldemar Billy M.D.,PhD Potassium [Moles/Vol] 4.8 mmol/L Normal 3.5-5.[address] [facility] Comment on above: Order Comment: FASTI NG:NO FASTING: NO Performed By: #### 2 27, 4418, 4420, 09598, 809, 06107, 374 #### [facility] [place] [address] [facility], [address] [place] [address] [employer] Analyst: Octavio Segovia MD #### [phone], 08772 #### [facility], [address] [place], [place] [employer] Analyst: Alejandra Queen MD,PhD,FADIA #### [phone] #### [facility]/[address] [place] [employer] Analyst: Waldemar Billy M.D.,PhD Sodium [Moles/Vol] 136 mmol/L Normal 135-146 [facility] Comment on above: Order Comment: FASTI NG:NO FASTING: NO Performed By: #### 2 27, 4418, 4420, 37766, 809, 26928, 374 #### [facility] [address], [address] [place] [address] [employer] Analyst: Octavio Segovia MD #### [phone], 22522 #### [facility], [facility] [place] [employer] Analyst: Alejandra Queen MD,PhD,FADIA #### [phone] #### [facility] [address] [place] [address] [place] [employer] Analyst: Waldemar Billy M.D.,PhD Urea nitrogen [Mass/Vol] 36 mg/dL High 7-25 [facility] Comment on above: Order Comment: FASTI NG:NO FASTING: NO Performed By: #### 2 27, 4418, 4420, 65351, 809, 10326, 374 #### [facility] [address], [address] [place], [place] [address] [employer] Analyst: Octavio Segovia MD #### [phone], 00614 #### [facility], [address] [place], [place] [employer] Analyst: Alejandra Queen MD,PhD,FADIA #### [id number] #### [facility]/[place] [id number] [facility] [address] [place] [employer] Analyst: Waldemar Billy M.D.,PhD Urea nitrogen/Creatinine [Mass ratio] 24 mg/mg High 09-20 [facility] Comment on above: Order Comment: FASTI NG:NO FASTING: NO Performed By: #### 2 27, 4418, 4420, 19488, 809, 37291, 374 #### [facility] [address], [address] [place] [address] [employer] Analyst: Octavio Segovia MD #### [phone], 30056 #### [facility], [address] [place] [address] [employer] Analyst: Alejandra Queen MD,PhD,FADIA #### [id number] #### [facility], [facility] [address] [facility] [place], [place] [employer] Analyst: Waldemar Billy M.D.,PhD BRONCHOSCOPYon 09-24-2024 BRONCHOSCOPY Table formatting fro m the original result was not included. Images from the original result were not included. Bronchoscopy Operative Report [facility] Date of procedure: 09/24/24 Patient: Krunal Leos [...] INDICATION: Obtain diagnosis BRONCHOSCOPIST: Dick Nguyen MD [employer] System: Maeve Pringle MD PROCEDURES PERFORMED: Flexible Bronchoscopy Cryo Transbronchial Biopsy using 1.7 cryoprobe 7 Swedish Osmani renuka placement in RLL and RML BAL RML Events Procedure Events Event Event Time ENDO SCOPE IN TIME 09/24/2024 8:05 AM ENDO SCOPE OUT TIME 09/24/2024 8:40 AM POST-PROCEDURE DIAGNOSIS: Interstitial Lung Disease ANESTHESIA: GETA. See separate anesthesia provider documentation. This procedure was performed using standard monitoring procedures in [facility]'s [facility] Endoscopy Suite. Medications See Anesthesia Record. Details [...] bronchoscopy was performed via ETT. A 7 danish renuka was placed outside of the ETT [...] cryo transbronchial biopies and placement of 7 danish renuka. The procedure required more time than usual to perform. After diagnostic/therapeutic maneuvers, the airway was examined for evidence of bleeding. None was noted. The bronchoscope was removed from the patient's airway and the airway was handed back over to my colleagues from anesthesiology. SPECIMENS: ID Type Source Karly (more content not included)... [facility] Comment on above: Order Comment: [facility] hoscopy Scheduling Request Pre-bronchoscopy visit: Not needed with Dr Padron Please schedule procedure: After September 11, 2024 Cytology on-site: No Location: [facility] Performing physician: Dick Nguyen MD or interventional pulm (cryo ILD biopsies) Referring physician: Rosalino Padron MD, Radha Khan MD Indication: undifferentiated ILD Sedation / Anesthesia: GA Procedure: Airway exam, BAL, TBBx, Rigid, 7 danish renuka with rigid, if too hypoxic then 8.5/9 ETT with 5 danish renuka Time: Tier 2 Fluorscopy: Yes Imaging [...] MIDDLE LOBE Specimen Type: Fluid Specimen Date: 09/24/2024 0839 Result Date: 09/26/2024 0841 Result Status: Final result Resulting Lab: [facility] [id number] [facility] [address] CULTURE No growth aerobically and anaerobically STAIN (2+) Few Polymorphonuclear leukocytes No organisms seen Normal [facility] Comment on above: Performed By: #### 3 2355-0 #### MICHAEL Ho ([id number]) [facility] ([facility]) [address] [place] [id number] Bronchoscopy studyon 025 Addendum by Dick Davis am, MD on 09/24/2024 9:35 AM EDT Table formatting from the original result was not included. Images from the original result were not included. Bronchoscopy Operative Report [facility] Date of procedure: 09/24/24 Patient: Krunal Leos [...] INDICATION: Obtain diagnosis BRONCHOSCOPIST: Dick Nguyen MD [employer] System: Maeve Pringle MD PROCEDURES PERFORMED: Flexible Bronchoscopy Cryo Transbronchial Biopsy using 1.7 cryoprobe 7 Swedish Osmani renuka placement in RLL and RML BAL RML Events Procedure Events Event Event Time ENDO SCOPE IN TIME 09/24/2024 8:05 AM ENDO SCOPE OUT TIME 09/24/2024 8:40 AM POST-PROCEDURE DIAGNOSIS: Interstitial Lung Disease ANESTHESIA: GETA. See separate anesthesia provider documentation. This procedure was performed using standard monitoring procedures in [facility]'s [facility] Endoscopy Suite. Medications See Anesthesia Record. Details [...] bronchoscopy was performed via ETT. A 7 danish renuka was placed outside of the ETT [...] cryo transbronchial biopies and placement of 7 danish renuka. The procedure required more time than usual to perform. After diagnostic/therapeutic maneuvers, the airway (more content not included)... [facility] Work Phone: [facility] Work Phone: Radiology Study observation (narrative) [facility] Work Phone: CBC (H/H, RBC, INDICES, WBC, PLT)on 09-24-2024 Erythrocyte distribution width (RBC) [Ratio] 16.0 % High 11.0-15.0 [facility] Comment on above: Performed By: #### 2 27, 4418, 4420, 44906, 809, 50176, 374 #### [facility] [address] [address] [employer] Analyst: Octavio Segovia MD #### [id number], 35853 #### [facility] [address] [address] [employer] Analyst: Alejandra Queen MD,PhD,FADIA #### [phone] #### [facility] [address] [facility] [place] [address] [employer] Analyst: Waldemar Billy M.D.,PhD Hematocrit (Bld) [Volume fraction] 33.0 % Low 38.5-50.0 [facility] Comment on above: Performed By: #### 2 27, 4418, 4420, 31238, 809, 78885, 374 #### [facility] [address], [address] [place] [address] [employer] Analyst: Octavio Segovia MD #### [phone], 33746 #### [facility], [address] [place] [address] [employer] Analyst: Alejandra Queen MD,PhD,FADIA #### [id number] #### [facility]/[address] [place], [place] [employer] Analyst: Waldemar Billy M.D.,PhD Hemoglobin (Bld) [Mass/Vol] 9.4 g/dL Low 13.2-17.1 [facility] Comment on above: Performed By: #### 2 27, 4418, 4420, 93456, 809, 48541, 374 #### [facility] [address], [address] [place] [address] [employer] Analyst: Octavio Segovia MD #### [phone], 98561 #### [facility], [address] [place], [place] [address] [employer] Analyst: Alejandra Queen MD,PhD,FADIA #### [phone] #### [facility]/[address] [place], [place] [employer] Analyst: Waldemar Billy M.D.,PhD MCH (RBC) [Entitic mass] 23.4 pg Low 27.0-33.0 [facility] Comment on above: Performed By: #### 2 27, 4418, 4420, 31658, 809, 73724, 374 #### [facility] [address], [address] [place] [address] [employer] Analyst: Octavio Segovia MD #### 41676, 84602 #### [facility], [address] [place], [place] [employer] Analyst: Alejandra Queen MD,PhD,FADIA #### 33212 #### [facility]/[place] [address] [facility] [place] [employer] Analyst: Waldemar Billy M.D.,PhD MCHC (RBC) [Mass/Vol] 28.5 g/dL Low 32.0-36.[address] [facility] Comment on above: Result Comment: For adults, a slight decrease in the calculated MCHC value (in the range of 30 to 32 g/dL) is most likely not clinically significant; however, it should be interpreted with caution in correlation with other red cell parameters and the patient's clinical condition. Performed By: #### 2 , 8, 4420, 25631, 809, 49934, 374 #### [facility] [address], [address] [place] [address] [employer] Analyst: Octavio Segovia MD #### [phone], 85225 #### [facility], [address] [place] [address] [employer] Analyst: Alejandra Queen MD,PhD,FADIA #### [phone] #### [facility]/[place] [address] [facility] [place] [employer] Analyst: Waldemar Billy M.D.,PhD MCV (RBC) [Entitic vol] 82.1 fL Normal 80.0-100.0 [facility] Comment on above: Performed By: #### 2 , 8, 4420, 80353, 809, 89731, 374 #### [facility] [address] , [address] [place] [address] [employer] Analyst: Octavio Segovia MD #### 70629, 00343 #### [facility], [address] [place] [address] [employer] Analyst: Alejandra Queen MD,PhD,FADIA #### [phone] #### [facility]/[place] [address] [facility] [address] [place], [place] [employer] Analyst: Waldemar Billy M.D.,PhD Platelet mean volume (Bld) [Entitic vol] 10.4 fL Normal 7.5-12.5 [facility] Comment on above: Performed By: #### 2 27, 4418, 4420, 72171, 809, 38321, 374 #### [facility] [address], [address] [place] [address] [employer] Analyst: Octavio Segovia MD #### 71575, 63677 #### [facility], [address] [place] [id number] [employer] Analyst: Alejandra Queen MD,PhD,FADIA #### [id number] #### [facility]/[address] [place], [place] [employer] Analyst: Waldemar Billy M.D.,PhD Platelets (Bld) [#/Vol] 259 10*3/uL Normal 140-400 [facility] Comment on above: Performed By: #### 2 27, 4418, 4420, 74074, 809, 87436, 374 #### [facility] [address], [address] [place] [address] [employer] Analyst: Octavio Segovia MD #### [phone], [phone] #### [facility], [address] [place], [place] [employer] Analyst: Alejandra Queen MD,PhD,FADIA #### [phone] #### [facility]/[address] [place] [employer] Analyst: Waldemar Billy M.D.,PhD RBC (Bld) [#/Vol] 4.02 10*6/uL Low 4.20-5.80 [facility] Comment on above: Performed By: #### 2 27, 4418, 4420, 58316, 809, 12792, 374 #### [facility] [address] , [address] [place] [address] Geographic Information Systems Analyst: Octavio Segovia MD #### [id number], 65344 #### [facility], [address] [phone] Geographic Information Systems Analyst: Alejandra Queen MD,PhD,FADIA #### [id number] #### [facility]/[place] [id number] [facility] [place], [place] Geographic Information Systems Analyst: Waldemar Billy M.D.,PhD WBC (Bld) [#/Vol] 12.8 10*3/uL High 3.8-10.8 [facility] Comment on above: Performed By: #### 2 27, 4418, 4420, 96755, 809, 39338, 374 #### [facility] [address], [address] [place] [address] Geographic Information Systems Analyst: Octavio Segoiva MD #### 75034, 26799 #### [facility], [address] [phone] Geographic Information Systems Analyst: Alejandra Queen MD,PhD,FADIA #### 42219 #### [facility] [place], [place] Geographic Information Systems Analyst: Waldemar Billy M.D.,PhD Cell count panel (Body fld)O rdered By: Johanna Prieto on 09-24-2024 Clarity (Body fld) Clear Clear [facility] Color (Body fld) Colorless Colorless, Straw, Yellow [facility] RBC Auto (Body fld) [#/Vol] /uL see comment /uL [facility] WBC (Body fld) [#/Vol] 0.022 10*3/uL See Commen t [facility] Body Fluid cell coun t reference ranges have not been established by [facility]. Reference ranges provided are based on published references. This test was developed and its performance characteristics determined by [facility]. It has not been cleared or approved by the [place] Food and Drug Administration. [facility] Cell count panel (Body fld)o n 09-24-2024 Clarity (Body fld) Clear Normal Clear [facility] Comment on above: Order Comment: Body Fluid cell count reference ranges have not been established by [facility]. Reference ranges provided are based on published references. This test was developed and its performance characteristics determined by [facility]. It has not been cleared or approved by the [place] Food and Drug Administration. Performed By: #### 3 4556-1 #### MICHAEL Ho ([id number]) [facility] ([facility]) [address] [place] [address] Color (Body fld) Colorless Normal Colorless, Straw, Yellow [facility] Comment on above: Order Comment: Body Fluid cell count reference ranges have not been established by [facility]. Reference ranges provided are based on published references. This test was developed and its performance characteristics determined by [facility]. It has not been cleared or approved by the [place] Food and Drug Administration. Performed By: #### 3 4556-1 #### MICHAEL Ho ([id number]) [facility] ([facility]) [address] [place], [place] [id number] RBC Auto (Body fld) [#/Vol] <2000 Normal see comment [facility] Comment on above: Order Comment: Body Fluid cell count reference ranges have not been established by [facility]. Reference ranges provided are based on published references. This test was developed and its performance characteristics determined by [facility]. It has not been cleared or approved by the [place] Food and Drug Administration. Performed By: #### 3 4556-1 #### MICHAEL Ho ([id number]) [facility] ([facility]) [address] [place] [address] WBC (Body fld) [#/Vol] 0.022 10*3/uL Normal See Commen t [facility] Comment on above: Order Comment: Body Fluid cell count reference ranges have not been established by [facility]. Reference ranges provided are based on published references. This test was developed and its performance characteristics determined by [facility]. It has not been cleared or approved by the [place] Food and Drug Administration. Performed By: #### 3 4556-1 #### MICHAEL Ho ([id number]) [facility] ([facility]) [address] [place] [address] Differential panel (Body fld )on 09-24-2024 Cells Counted Total (Body fld) [#] 100 [facility] Eosinophils/100 WBC Manual cnt (Body fld) 1 % see comment [facility] Comment on above: BAL Reference Range: <1% Lymphocytes/100 WBC Manual cnt (Body fld) 21 % see comment [facility] Comment on above: Synovial/Peritoneal/ Pericardial/Pleural Fluid Reference Range: <75% BAL Reference Range: <10% Monocytes+Macrophages/1 00 WBC Manual cnt (Body fld) 53 % see comment [facility] Comment on above: Synovial/Peritoneal/ Pericardial/Pleural Fluid Reference Range: <70% BAL Reference Range: 87-100% Neutrophils/100 WBC (Body fld) 25 % see comment [facility] Comment on above: Synovial/Peritoneal/ Pericardial/Pleural Fluid Reference Range: <25% BAL Reference Range: <2% Body Fluid cell differential reference ranges have not been established by [facility]. Reference ranges provided are based on published references. This test was developed and its performance characteristics determined by [facility]. It has not been cleared or approved by the [place] Food and Drug Administration. [facility] Cells Counted Total (Body fld) [#] 100 Normal [facility] Comment on above: Order Comment: Body Fluid cell differential reference ranges have not been established by [facility]. Reference ranges provided are based on published references. This test was developed and its performance characteristics determined by [facility]. It has not been cleared or approved by the US Food and Drug Administration. Performed By: #### 2 9580-8 #### MICHAEL Ho ([id number]) [facility] ([facility]) [address] [place] [address] Eosinophils/100 WBC Manual cnt (Body fld) 1 % Normal see comment [facility] Comment on above: Order Comment: Body Fluid cell differential reference ranges have not been established by [facility]. Reference ranges provided are based on published references. This test was developed and its performance characteristics determined by [facility]. It has not been cleared or approved by the [place] Food and Drug Administration. Result Comment: BAL Reference Range: <1% Performed By: #### 2 9580-8 #### MICHAEL HOLMMOTZER L ([id number]) [facility] ([facility]) [address] [place] [address] Lymphocytes/100 WBC Manual cnt (Body fld) 21 % Normal see comment [facility] Comment on above: Order Comment: Body Fluid cell differential reference ranges have not been established by [facility]. Reference ranges provided are based on published references. This test was developed and its performance characteristics determined by [facility]. It has not been cleared or approved by the [place] Food and Drug Administration. Result Comment: Syno vial/Peritoneal/Pericardial/Pleural Fluid Reference Range: <75% BAL Reference Range: <10% Performed By: #### 2 9580-8 #### MICHAEL HOLMMOTZER L ([id number]) [facility] ([facility]) [address] [place] [address] Monocytes+Macrophages/1 00 WBC Manual cnt (Body fld) 53 % Normal see comment [facility] Comment on above: Order Comment: Body Fluid cell differential reference ranges have not been established by [facility]. Reference ranges provided are based on published references. This test was developed and its performance characteristics determined by [facility]. It has not been cleared or approved by the US Food and Drug Administration. Result Comment: Syno vial/Peritoneal/Pericardial/Pleural Fluid Reference Range: <70% BAL Reference Range: 87-100% Performed By: #### 2 9580-8 #### MICHAEL HOLMMOTZER L ([id number]) [facility] ([facility]) [id number] [place] [address] Neutrophils/100 WBC (Body fld) 25 % Normal see comment [facility] Comment on above: Order Comment: Body Fluid cell differential reference ranges have not been established by [facility]. Reference ranges provided are based on published references. This test was developed and its performance characteristics determined by [facility]. It has not been cleared or approved by the US Food and Drug Administration. Result Comment: Syno vial/Peritoneal/Pericardial/Pleural Fluid Reference Range: <25% BAL Reference Range: <2% Performed By: #### 2 9580-8 #### MICHAEL Ho ([id number]) [facility] ([facility]) [address] [place] [address] Fungus identifiedon 09-25-19 Fungus identified Cx Nom (Unsp spec) Test: Fungal Culture/Smear Specimen Source: BRONCHO-ALVEOLAR LAVAGE OF RIGHT MIDDLE LOBE Specimen Type: Fluid Specimen Date: 09/24/2024 0839 Result Date: 10/12/2024 102 Result Status: Final result Resulting Lab: [facility] [address] [place] [address] CULTURE No fungi isolated. STAIN No fungal elements seen Normal [facility] Comment on above: Performed By: #### 5 80-1 #### MICHAEL Ho ([id number]) [facility] ([facility]) [address] [place] [address] H. capsulatum Ag IA Qn (S)on 09-24-2024 H. capsulatum Ag Ql (Unsp spec) Not detected Normal Not Detected [facility] Comment on above: Performed By: #### 6 428-7 ####[facility] ([id number])[address] [place] [address] SCAN RESULT See Scanned Result Normal [facility] Comment on above: Performed By: #### 6 428-7 ####[facility] ([id number])[address] [place] [address] LEGIONELLA PCR PANELon 09-24 LEGIONELLA PNEUMO PCR, VIRC Not detected Normal Not Detected [facility] Comment on above: Result Comment: This test was developed and its performance characteristics determined by [employer]. It has not been cleared or approved by the U.S. Food and Drug Administration. Results should be used in conjunction with clinical findings, and should not form the sole basis for a diagnosis or treatment decision. Testing Performed at: [facility] [address], [address] [place] [address] Auto Garage Attendant: José Harris, PhD BCLJenny (ABB) CLIA # [id number] FLAG Interpretation: A = Abnormal, H = High, L = Low Performed By: #### L EGPC ####[facility] ([id number])[address] [place] [address] NAVAS.LEGIONELLA PCR, VIRC Not detected Normal Not Detected [facility] Comment on above: Performed By: #### L EGPC ####[facility] ([id number])[address] [place] [address] Mycobacterium sp identifiedo n 09-24-2024 Mycobacterium sp identified Org specific cx Nom (Unsp spec) Test: AFB Culture/Smear Specimen Source: BRONCHO-ALVEOLAR LAVAGE OF RIGHT MIDDLE LOBE Specimen Type: Fluid Specimen Date: 09/24/2024838 Result Date: 11/11/2024 120 Result Status: Final result Resulting Lab: [facility] [address] [place] [address] CULTURE No Mycobacteria isolated. STAIN No acid fast bacilli seen Normal [facility] Comment on above: Performed By: #### 5 43-9 #### MICHAEL Ho ([id number]) [facility] ([facility]) [address] [place] [address] Non-commercial lender cytology studyon Non-gynecological cytology method study Pathology report.total SEE COMMENT Non-gynecologic Cytology Case: [id number] Authorizing Provider: Dick Nguyen MD Collected: 09/24/2024 0837 Ordering Location: [facility]: 09/24/2024 1637 Center Pathologist: Lyudmila Valentin MD [...] initially screened by Denisa Holliday CT at [address] [phone] By the signature on this report, the individual or group listed as making the Final Interpretation/Diagnosi s certifies that they have reviewed this case. [...] A1-2 GMS PCP A1-3 LOG SPECIAL STAIN Normal [facility] Pathologist review Cedrick (Unsp spec) [Interp]on 09-24-2024 PATH REVIEW-CELL CT,FLUID Predominantly macrophages with some foamy and hemosiderin-laden forms. [facility] Comment on above: Result Comment: Elec tronically signed out by Cat Gunter MD on 09/25/24 at 10:24 AM. By the signature on this report, the individual or group listed as making the Final Interpretation/Diagnosis certifies that they have reviewed this case. Performed By: #### 5 9465-5 #### MICHAEL Ho ([id number]) [facility] ([facility]) [address] [place] [address] Surgical pathology studyon 0 09-24-2024 Surgical pathology study Pathology report.total SEE COMMENT Surgical Pathology Case: [id number] Authorizing Provider: Dick Nguyen MD Collected: 09/24/2024 0817 Ordering Location: [facility] Received: 09/24/2024 1142 Center Pathologist: Sanchez Hernandez MD Specimen: TRANSBRONCHIAL BIOPSY, Right Lung Cryo TBBX Path report.final diagnosis SEE COMMENT A. LUNG, RIGHT; BIOPSY: -- Lung parenchyma with focal interstitial fibrosis and cystic remodeling. See comment at 1633 EDT Laboratory comment By the signature on this report, the individual or group listed as making the Final Interpretation/Diagnosi s certifies that they have reviewed this case. [...] is submitted in toto in one cassette. DMB Normal [facility] T-cell subsets CD4 and CD8 p janice (Bld)on 09-24-2024 CD3+CD4+% 72 % Normal not established [facility] Comment on above: Order Comment: Kenia l values have not been established for BAL specimens.This test is a Dual platform, multicolor, whole blood lysis assay. It was developed and its performance characteristics determined by the Department of Pathology, [facility], and has not been cleared or approved by the U.S. Food and Drug Administration. The laboratory is regulated under CLIA as qualified to perform high complexity testing. This test is used for clinical purposes. It should not be regarded as investigational or for research.Immunophenotypic analysis was performed using the following antibodies: CD45, CD3, CD4, and CD8 Performed By: #### 6 5759-3 ####MICHAEL Ho ([id number])[facility] ([facility])[address] [place] [address] CD3+CD8+% 16 % Normal not established [facility] Comment on above: Order Comment: Kenia l values have not been established for BAL specimens.This test is a Dual platform, multicolor, whole blood lysis assay. It was developed and its performance characteristics determined by the Department of Pathology, [facility], and has not been cleared or approved by the U.S. Food and Drug Administration. The laboratory is regulated under CLIA as qualified to perform high complexity testing. This test is used for clinical purposes. It should not be regarded as investigational or for research.Immunophenotypic analysis was performed using the following antibodies: CD45, CD3, CD4, and CD8 Performed By: #### 6 5759-3 ####MICHAEL Ho ([id number])[facility] ([facility])[address] [place] [address] CD4/CD8 RATIO 4.50 Normal not established [facility] Comment on above: Order Comment: Kenia l values have not been established for BAL specimens.This test is a Dual platform, multicolor, whole blood lysis assay. It was developed and its performance characteristics determined by the Department of Pathology, [facility], and has not been cleared or approved by the U.S. Food and Drug Administration. The laboratory is regulated under CLIA as qualified to perform high complexity testing. This test is used for clinical purposes. It should not be regarded as investigational or for research.Immunophenotypic analysis was performed using the following antibodies: CD45, CD3, CD4, and CD8 Performed By: #### 6 5759-3 ####MICHAEL Ho ([id number])[facility] ([facility])[address] [place], [place] [address] XR CHEST 1 VIEWon 09-24-2024 XR CHEST 1 VIEW Interpreted By: Matthias Bunch and Mercado Amiel STUDY: XR CHEST 1 VIEW; 09/24/2024 9:32 am INDICATION: Signs/Symptoms:after bronchoscopy. COMPARISON: CT CHEST HIGH RESOLUTION 07/20/2024 ACCESSION NUMBER(S): [id number] ORDERING CLINICIAN: DICK NGUYEN FINDINGS: AP radiograph of the chest. CARDIOMEDIASTINAL SILHOUETTE: The cardiomediastinal silhouette is stable in size and configuration,persisten tly enlarged. LUNGS: Diffuse bilateral hazy reticulonodular opacities with relatively increased size of right lateral lower lung field. ABDOMEN: No remarkable upper abdominal findings. BONES: No acute osseous abnormality. IMPRESSION: 1. Diffuse bilateral hazy reticulonodular opacities with relatively increased size of right lateral lower lung field, which likely represents infiltrate/consolidatio n with superimposed interstitial lung findings previously described on CT. I have reviewed the images/study and I agree with the findings as stated by Dr. Aguila Gonzales. Signed by: Matthias Bunch 09/24/2024 10:10 AM Dictation workstation: [id number] [facility] XR Chest Single viewon 09-24 1. Diffuse bilateral hazy reticulonodular opacities with relatively increased size of right lateral lower lung field, which likely represents infiltrate/consolidatio n with superimposed interstitial lung findings previously described on CT. I have reviewed the images/study and I agree with the findings as stated by Dr. Aguila Gonzales. Signed by: Matthias Bunch 09/24/2024 10:10 AM Dictation workstation: [id number] MMODAL Interpreted By: Matthias Bunch and Mercado Amiel STUDY: XR CHEST 1 VIEW; 09/24/2024 9:32 am INDICATION: Signs/Symptoms:after bronchoscopy. COMPARISON: CT CHEST HIGH RESOLUTION 07/20/2024 ACCESSION NUMBER(S): [id number] ORDERING CLINICIAN: DICK NGUYEN FINDINGS: AP radiograph of the chest. CARDIOMEDIASTINAL SILHOUETTE: The cardiomediastinal silhouette is stable in size and configuration,persisten tly enlarged. LUNGS: Diffuse bilateral hazy reticulonodular opacities with relatively increased size of right lateral lower lung field. ABDOMEN: No remarkable upper abdominal findings. BONES: No acute osseous abnormality. MMODAL Matthias Bunch MD PhD - 09/24/2024 Interpreted By: Matthias Bunch and Mercado Amiel STUDY: XR CHEST 1 VIEW; 09/24/2024 9:32 am INDICATION: Signs/Symptoms:after bronchoscopy. COMPARISON: CT CHEST HIGH RESOLUTION 07/20/2024 ACCESSION NUMBER(S): [id number] ORDERING CLINICIAN: DICK NGUYEN FINDINGS: AP radiograph of the chest. CARDIOMEDIASTINAL SILHOUETTE: The cardiomediastinal silhouette is stable in size and configuration,persisten tly enlarged. LUNGS: Diffuse bilateral hazy reticulonodular opacities with relatively increased size of right lateral lower lung field. ABDOMEN: No remarkable upper abdominal findings. BONES: No acute osseous abnormality. IMPRESSION: 1. Diffuse bilateral hazy reticulonodular opacities with relatively increased size of right lateral lower lung field, which likely represents infiltrate/consolidatio n with superimposed interstitial lung findings previously described on CT. I have reviewed the images/study and I agree with the findings as stated by Dr. Aguila Gonzales. Signed by: Matthias Bunch 09/24/2024 10:10 AM Dictation workstation: [id number] [facility] Work Phone: Radiology Study observation (narrative) [facility] Work Phone: XR Chest Single viewOrdered By: Matthias Bunch on 09-24-2024 [facility] Work Phone: Endocrinology Visit Reporton 09-16-2024 Endocrinology Visit Report Normal [facility] - Hematology and Cell countsOrdered By: Jessica Gerardo on 09-16-2024 HbA1c (Bld) [Mass fraction] 8.4 % High 4.2-6.3 [facility] No Panel InformationOrdered By: Jessica Gerardo on 09-16-2024 8.4 % High 4.2-6.3 [facility] Office Visit Reporton 2024 Office Visit Report Normal [facility] Neurology Visit Reporton Neurology Visit Report Normal [facility] Anion gap in Serum or Plasma Ordered By: Khadar Valencia on 08-12-2024 Anion gap [Moles/Vol] 14 mmol/L - [facility] BUN/creatinine ratioOrdered By: Khadar Valencia on 08-12-2024 Urea nitrogen/Creatinine [Mass ratio] 30.2 mg/mg High - [facility] Basic Metabolic Profile (BMP )on 08-12-2024 BUN/CRE 30.2 RATIO High 01-18 [facility] Comment on above: Performed By: #### L 500.2500, L503.7505 ####[facility] [address] [place], [address] Calcium [Mass/Vol] 9.6 mg/dL Normal 7.6-11.0 [facility] Comment on above: Performed By: #### L 500.2500, L503.7505 ####[facility] [address] [place], [address] Chloride [Moles/Vol] 98 mmol/L Normal 98-108 [facility] Comment on above: Performed By: #### L 500.2500, L503.7505 ####[facility] [address] [place], [address] CO2 [Moles/Vol] 25.1 mmol/L Normal 21.0-32.0 [facility] Comment on above: Performed By: #### L 500.2500, L503.7505 ####[facility] [address] [place], [address] Creatinine [Mass/Vol] 1.31 mg/dL High 0.70-1.20 [facility] Comment on above: Performed By: #### L 500.2500, L503.7505 ####[facility] [address] [place], [address] GAP 14 Normal 5-15 [facility] Comment on above: Performed By: #### L 500.2500, L503.7505 ####[facility] [address] [place], [address] GFR/1.73 sq M.predicted among non-blacks MDRD (S/P/Bld) [Vol rate/Area] 62 mL/min/{1.73_m2} Normal >60 [facility] Comment on above: Result Comment: mL/m in/1.73m2 CKD-EPI Creatinine Equation (2020) Performed By: #### L 500.2500, L503.7505 ####[facility] [address] [place], [address] Glucose [Mass/Vol] 104 mg/dL High 70-99 [facility] Comment on above: Performed By: #### L 500.2500, L503.7505 ####[facility] [address] [place], [address] Potassium [Moles/Vol] 4.4 mmol/L Normal 3.3-5.1 [facility] Comment on above: Performed By: #### L 500.2500, L503.7505 ####[facility] [address] [place], [address] Sodium [Moles/Vol] 137 mmol/L Normal 133-145 [facility] Comment on above: Performed By: #### L 500.2500, L503.7505 ####[facility] [address] [place], [address] Urea nitrogen [Mass/Vol] 40 mg/dL High 4-19 [facility] Comment on above: Performed By: #### L 500.2500, L503.7505 ####[facility] [address] [place], [address] Carbon dioxide, total [Moles /volume] in Central venous bloodOrdered By: Khadar Valencia on 08-12-2024 CO2 [Moles/Vol] 25.1 mmol/L 21.0-32.0 [facility] Chest PA and Lateralon 08-12 Chest PA and Lateral Normal [facility] Chloride assayOrdered By: James Valencia on 08-12-2024 Chloride [Moles/Vol] 98 mmol/L 98-108 [facility] Glomerular filtration rate ( GFR) estimation/1.73 sq m using serum, plasma, or whole bOrdered By: Khadar Valencia on 08-12-2024 GFR/1.73 sq M.predicted among non-blacks MDRD (S/P/Bld) [Vol rate/Area] 62 mL/min/{1.73_m2} >60 [facility] Comment on above: mL/min/1.73m2 CKD-EP I Creatinine Equation (2020) L503.7505on 08-12-2024 Natriuretic peptide B (Bld) [Mass/Vol] 626 pg/mL Normal <=900 [facility] Comment on above: Result Comment: Hear t Failure Unlikely: < 300 pg/mLHeart Failure Likely< 50 Years: > 450 pg/mL50-75 Years: > 900 pg/mL>75 Years: > 1800 pg/mL Performed By: #### L 500.2500, L503.7505 ####[facility] [address] [place], [address] Natriuretic peptide.B prohor renea N-Terminal [Mass/volume] in Serum or PlasmaOrdered By: Khadar Valencia on 08-12-2024 Natriuretic peptide.B prohormone N-Terminal [Mass/Vol] 626 pg/mL <900 [facility] Comment on above: Heart Failure Unlike ly: < 300 pg/mLHeart Failure Likely< 50 Years: > 450 pg/mL50-75 Years: > 900 pg/mL>75 Years: > 1800 pg/mL Potassium measurement (mass/ volume)Ordered By: Khadar Valencia on 08-12-2024 Potassium (Unsp spec) [Mass/Vol] 4.4 mmol/L 3.3-5.1 [facility] Serum creatinine measurement (mass/volume)Ordered By: Khadar Valencia on 08-12-2024 Creatinine [Mass/Vol] 1.31 mg/dL High 0.70-1.20 [facility] Serum glucose measurement (m ass/volume)Ordered By: Khadar Valencia on 08-12-2024 Glucose [Mass/Vol] 104 mg/dL High 70-99 [facility] Serum or plasma calcium grazyna urement (mass/volume)Ordered By: Khadar Valencia on 08-12-2024 Calcium [Mass/Vol] 9.6 mg/dL 7.6-11.0 [facility] Serum or plasma urea nitroge n measurement (mass/volume)Ordered By: Khadar Valencia on 08-12-2024 Urea nitrogen [Mass/Vol] 40 mg/dL High 4-19 [facility] Sodium levelOrdered By: Junior king Demiter on 08-12-2024 Sodium [Moles/Vol] 137 mmol/L 133-145 [facility] Office Visit Reporton 2024 Office Visit Report Normal [facility] ALDOLASEon 08-02-2024 ALDOLASE 4.6 U/L Normal < OR = 8.1 [facility] Comment on above: Performed By: #### 2 27, 4418, 4420, 40591, 809, 14378, 374 #### [facility] [address] [facility], [address] [place] [address] [employer] Analyst: Octavio Segovia MD #### [phone], [phone] #### [facility] [address] [place] [address] [employer]ographic Information [employer] Analyst: Alejandra Queen MD,PhD,FADIA #### [phone] #### [facility]/[place] [address] [facility] [place] [address] Geographic Information Systems Analyst: Waldemar Billy M.D.,PhD RICARDO CASCADE(RICARDO,IFA W/RFL AN D REFL 11 [...] AC-0: Negative International Consensus on RICARDO Patterns (https://doi.org/10.1515/xjcy-8114-6147) For additional information, please refer to http://education.[employer].Raffstar/faq/UYI517 (This link is being provided for informational/ educational purposes only.) Performed By: #### 2 27, 4418, 4420, 58276, 809, 35929, 374 #### [facility] [address], [address] [employer]ographic [employer] Analyst: Octavio Segovia MD #### [phone], 19791 #### [facility], [address] [place] [address] Geographic Information Systems Analyst: Alejandra Queen MD,PhD,FADIA #### [phone] #### [facility] [address] [facility] [address] [place] [employer] Information [employer] Analyst: Waldemar Billy M.D.,PhD ANCA SCREEN WITH MPO AND PR3 WITH [...] Performed By: #### 2 27, 4418, 4420, 45008, 809, 00440, 374 #### [facility] [address], [address] [place] [address] Geographic Information Systems Analyst: Octavio Segovia MD #### [phone], 37362 #### [facility], [address] [place] [address] [employer]ographic Information Systems Analyst: Alejandra Queen MD,PhD,FADIA #### 26118 #### [facility] [address] [facility] [address] [place] [employer] Analyst: Waldemar Billy M.D.,PhD MYELOPEROXIDASE ANTIBODY <1.0 Normal <1.0 [facility] Comment on above: Result Comment: Value [...] Performed By: #### 2 27, 4418, 4420, 43670, 809, 73874, 374 #### [facility] [address], [address] [place] [address] Geographic Information Systems Analyst: Octavio Segovia MD #### 63393, 07817 #### [facility] [place], [address] [place] [address] Geographic Information Systems Analyst: Alejandra Queen MD,PhD,FADIA #### [phone] #### [facility] [address] [facility] [place] [address] Geographic Information Systems Analyst: Waldemar Billy M.D.,PhD PROTEINASE-3 ANTIBODY <1.0 Normal <1.0 [facility] Comment on above: Result Comment: Value Interpretation <1.0 AI: No Antibody Detected >or=1.0 AI: Antibody Detected Autoantibodies to proteinase-3 (KY-3) are accepted as characteristic for granulomatosis with polyangiitis (GPA, Kaylen's), and are detectable in 95% of the histologically proven cases. The cytoplasmic IFA pattern, (c-ANCA), is based largely on autoantibody to KY-3 which serves as the primary antigen. These autoantibodies are present in active disease. Performed By: #### 2 , 4418, 4420, 81523, 809, 23968, 374 #### [facility] [address], [address] [place] [address] Geographic Information Systems Analyst: Octavio Segovia MD #### 47972, 85343 #### [facility] [place], [address] [place] [address] Geographic Information Systems Analyst: Alejandra Queen MD,PhD,FADIA #### [id number] #### [facility]/[place] [address] [facility] [address] [place] [employer] Analyst: Waldemar Billy M.D.,PhD C-REACTIVE PROTEINon 025 CRP [Mass/Vol] 10.6 mg/L High <8.0 [facility] Comment on above: Performed By: #### 2 27, 4418, 4420, 52676, 809, 96537, 374 #### [facility] [address], [address] [place] [address] Geographic Information Systems Analyst: Octavio Segovia MD #### [phone], 78881 #### [facility], [address] [place] [employer]ographic Information Systems Analyst: Alejandra Queen MD,PhD,FADIA #### [phone] #### [facility] [place], [place] Geographic Information Systems Analyst: Waldemar Billy M.D.,PhD CREATINE KINASE, TOTALon CREATINE KINASE, TOTAL 46 U/L Normal 22-308 [facility] Comment on above: Performed By: #### 2 27, 4418, 4420, 24006, 809, 35036, 374 #### [facility] [address], [address] [place] [address] Geographic Information Systems Analyst: Octavio Segovia MD #### 48852, 89659 #### [facility], [address] [facility] [employer] Information Systems Analyst: Alejandra Queen MD,PhD,FADIA #### 54411 #### [facility] [place], [place] [employer] Information Systems Analyst: Waldemar Billy M.D.,PhD CYCLIC CITRULLINATED PEPTIDE (CCP) AB (IGG)on 08-02-2024 CYCLIC CITRULLINATED PEPTIDE (CCP) AB (IGG) <16 Normal [facility] Comment on above: Result Comment: Refe rence Range Negative: <20 Weak Positive: 20-39 Moderate Positive: 40-59 Strong Positive: >59 Performed By: #### 2 27, 4418, 4420, 27073, 809, 38587, 374 #### [facility] [address], [address] [place] [address] Geographic Information Systems Analyst: Octavio Segovia MD #### 40599, 99491 #### [facility], [address] [facility] [place] [address] Geographic Information Systems Analyst: Alejandra Queen MD,PhD,FADIA #### [phone] #### [facility] [address] [facility] [place], [place] [employer] Information Systems Analyst: Waldemar Billy M.D.,PhD EXTENDED MYOSITIS SPECIFIC A NTIBODY (MSA) PANELon 08-02-2024 CYTOSOLIC 5' NUCLEOTIDASE 1A (cN 1A) AB (IGG) <5 Normal [facility] Comment on above: Order Comment: FASTI [...] analytical performance characteristics have been determined by [employer]. It has not been cleared or approved by the FDA. This assay has been validated pursuant to the CLIA regulations and is used for clinical purposes. Performed By: #### 2 27, 4418, 4420, 41728, 809, 95965, 374 #### [facility] [address], [address] [place] [address] Geographic Information Systems Analyst: Octavio Segovia MD #### 37886, 56723 #### [facility], [address] [place] [address] [employer]ographic Information Systems Analyst: Alejandra Queen MD,PhD,FADIA #### 16595 #### [facility]/[place] [address] [facility] [place], [place] [employer] Information Systems Analyst: Waldemar Billy M.D.,PhD EJ AB <11 Normal <11 [facility] Comment on above: Order Comment: FASTI NG:NO FASTING: NO Performed By: #### 2 27, 4418, 4420, 99064, 809, 40688, 374 #### [facility] [address], [address] [place] [address] [employer]ographic Information Systems Analyst: Octavio Segovia MD #### 66303, 58314 #### [facility], [address] [place] [address] Geographic Information Systems Analyst: Alejandra Queen MD,PhD,FADIA #### 56812 #### [facility]/[address] [place], [place] [employer] Information Systems Analyst: Waldemar Billy M.D.,PhD HMGCR AB (IGG) <2 Normal <20 [facility] Comment on above: Order Comment: FASTI NG:NO FASTING: NO Result Comment: 7-Svugdoy-5-Methylglutaryl-Coenzyme A Reductase (HMGCR) Ab is associated with necrotizing myopathy and is often found with the use of statin medications. Rarely, HMGCR Ab associated myositis has also been seen in patients ingesting mushrooms and other foods. Performed By: #### 2 27, 4418, 4420, 87949, 809, 40482, 374 #### [facility] of [place] [address], [address] [place] [address] Geographic Information Systems Analyst: Octavio Segovia MD #### 32306, 53931 #### [facility] [place], [address] [facility] [place] [employer] Information [employer] Analyst: Alejandra Queen MD,PhD,FADIA #### 56122 #### [facility]/[address] [place], [place] [employer] Analyst: Waldemar Billy M.D.,PhD SAMANTHA-1 AB <11 Normal <11 [facility] Comment on above: Order Comment: FASTI NG:NO FASTING: NO Performed By: #### 2 27, 4418, 4420, 25805, 809, 61032, 374 #### [facility] [place] [address] , [address] [place] [address] [employer]ographic Information Systems Analyst: Octavio Segovia MD #### 70428, 27894 #### [facility], [address] [place] [address] Geographic Information Systems Analyst: Alejandra Queen MD,PhD,FADIA #### 71492 #### [facility]/[address] [place], [place] [employer] Information Systems Analyst: Waldemar Billy M.D.,PhD MDA5 AB <11 Normal <11 [facility] Comment on above: Order Comment: FASTI NG:NO FASTING: NO Performed By: #### 2 27, 4418, 4420, 94999, 809, 03603, 374 #### [facility] [place] [address], [address] [place] [address] [employer]ographic Information Systems Analyst: Octavio Segovia MD #### 88374, 83671 #### [facility], [address] [facility] [place] [employer] Information Systems Analyst: Alejandra Queen MD,PhD,FADIA #### 38110 #### [facility]/[address] [place] [employer] Information Systems Analyst: Waldemar Billy M.D.,PhD AL-2 ALPHA AB <11 Normal <11 [facility] Comment on above: Order Comment: FASTI NG:NO FASTING: NO Performed By: #### 2 27, 4418, 4420, 60057, 809, 11951, 374 #### [facility] [address] , [address] [place] [address] Geographic Information Systems Analyst: Octavio Segovia MD #### 10964, 83429 #### [facility], [address] [place], [place] [employer] Information Systems Analyst: Alejandra Queen MD,PhD,FADIA #### 33927 #### [facility]/[address] [place], [place] [employer] Information Systems Analyst: Waldemar Billy M.D.,PhD AL-2 BETA AB <11 Normal <11 [facility] Comment on above: Order Comment: FASTI NG:NO FASTING: NO Performed By: #### 2 27, 4418, 4420, 82284, 809, 82756, 374 #### [facility] [address] [place], [place] [address] , [address] [place] [address] Geographic Information Systems Analyst: Octavio Segovia MD #### 05658, 42234 #### [facility], [address] [place], [place] Geographic Information Systems Analyst: Alejandra Queen MD,PhD,FADIA #### 76061 #### [facility]/[place] [address] [facility] [place], [place] Geographic Information Systems Analyst: Waldemar Billy M.D.,PhD NXP-2 AB <11 Normal [...] with a rash. Additionally, MSAs to MDA5 ([id number]) have been identified in patients with clinically [...] analytical performance characteristics have been determined by [employer]. It has not been cleared or approved by the FDA. This assay has been validated pursuant to the CLIA regulations and is used for clinical purposes. Performed By: #### 2 27, 2268, 4420, 02736, 809, 90605, 374 #### [facility] [address], [address] [place] [address] Geographic Information Systems Analyst: Octavio Segovia MD #### 56018, 74686 #### [facility], [address] [place] [address] Geographic Information Systems Analyst: Alejandra Queen MD,PhD,FADIA #### 93052 #### [facility] [address] [facility] [place] [address] Geographic Information Systems Analyst: Waldemar Billy M.D.,PhD OJ AB <11 Normal <11 [facility] Comment on above: Order Comment: FASTI NG:NO FASTING: NO Performed By: #### 2 27, 4418, 4420, 48460, 809, 52414, 374 #### [facility] [address], [address] [place] [address] Geographic Information Systems Analyst: Octavio Segovia MD #### 95080, 79577 #### [facility] [address] Geographic Information Systems Analyst: Alejandra Queen MD,PhD,FADIA #### 54960 #### [facility]/[address] [place], [place] [employer] Information Systems Analyst: Waldemar Billy M.D.,PhD PL-12 AB <11 Normal <11 [facility] Comment on above: Order Comment: FASTI NG:NO FASTING: NO Performed By: #### 2 27, 4418, 4420, 68171, 809, 43529, 374 #### [facility] [address], [address] [place] [address] Geographic Information Systems Analyst: Octavio Segovia MD #### 49785, 45548 #### [facility], [address] [place] [address] Geographic Information Systems Analyst: Alejandra Queen MD,PhD,FADIA #### 03617 #### [facility]/[address] [place], [place] [employer]ographic Information Systems Analyst: Waldemar Billy M.D.,PhD PL-7 AB <11 Normal <11 [facility] Comment on above: Order Comment: FASTI NG:NO FASTING: NO Performed By: #### 2 27, 4418, 4420, 05475, 809, 41844, 374 #### [facility] [place] [address] [address] , [address] [place] [address] Geographic Information Systems Analyst: Octavio Segovia MD #### 88363, 85134 #### [facility], [address] [facility] [place] Geographic Information Systems Analyst: Alejandra Queen MD,PhD,FADIA #### 65531 #### [facility] [place], [place] [employer]ographic Information Systems Analyst: Waldemar Billy M.D.,PhD SRP AB <11 Normal <11 [facility] Comment on above: Order Comment: FASTI NG:NO FASTING: NO Performed By: #### 2 27, 4418, 4420, 41921, 809, 64162, 374 #### [facility] [address], [address] [place] [address] Geographic Information Systems Analyst: Octavio Segovia MD #### 63708, 50034 #### [facility], [address] [place], [place] [employer] Information Systems Analyst: Alejandra Queen MD,PhD,FADIA #### 16972 #### [facility] [place], [place] Geographic Information Systems Analyst: Waldemar Billy M.D.,PhD TIF1 GAMMA AB <11 Normal <11 [facility] Comment on above: Order Comment: FASTI NG:NO FASTING: NO Performed By: #### 2 27, 4418, 4420, 38181, 809, 94218, 374 #### [facility] [address], [address] [place] [address] Geographic Information Systems Analyst: Octavio eSgovia MD #### 74966, 91887 #### [facility] [place], [address] [place], [place] Geographic Information Systems Analyst: Alejandra Queen MD,PhD,FADIA #### 54952 #### [facility] [address] [place] [employer]ographic Information Systems Analyst: Waldemar Billy M.D.,PhD HYPERSENSITIVITY PNEUMONITIS SCREEN 08-02-2024 ASPERGILLUS FUMIGATUS Negative Normal NEGATIVE Que [facility] Comment on above: Performed By: #### 2 27, 4418, 4420, 25579, 809, 10356, 374 #### [facility] [address], [address] [place] [address] Geographic Information Systems Analyst: Octavio Segovia MD #### 19331, 02981 #### [facility], [address] [place] [address] Geographic Information Systems Analyst: Alejandra Queen MD,PhD,FADIA #### 90564 #### [facility]/[address] [place], [place] [employer]ographic Information Systems Analyst: Waldemar Billy M.D.,PhD MICROPOLYSPORA FAENI Negative Normal NEGATIVE Ques t [facility] Comment on above: Performed By: #### 2 27, 4418, 4420, 68715, 809, 97234, 374 #### [facility] of [place] [address] [address] , [address] [place], [place] [address] Geographic Information Systems Analyst: Octavio Segovia MD #### 28601, 73301 #### [facility], [address] [place] [address] Geographic Information Systems Analyst: Alejandra Queen MD,PhD,FADIA #### 20977 #### [facility]/[address] [place], [place] [employer]ographic Information Systems Analyst: Waldemar Billy M.D.,PhD PIGEON SERUM Negative Normal NEGATIVE [facility] Comment on above: Performed By: #### 2 27, 4418, 4420, 87247, 809, 47025, 374 #### [facility] [address] , [address] [place] [address] Geographic Information Systems Analyst: Octavio Segovia MD #### 48958, 18039 #### [facility], [address] [facility] [address] Geographic Information Systems Analyst: Alejandra Queen MD,PhD,FADIA #### 41060 #### [facility] [address] [facility] [place], [place] [employer] Information Systems Analyst: Waldemar Billy M.D.,PhD Roddy MAYORGA Negative Normal NEGATIVE [facility] Comment on above: Result Comment: This test was developed and its analytical performance characteristics have been determined by [employer]. It has not been cleared or approved by the FDA. This assay has been validated pursuant to the CLIA regulations and is used for clinical purposes. Performed By: #### 2 , 1008, 4420, 37437, 809, 67192, 374 #### [facility] [address], [address] [place] [address] Geographic Information Systems Analyst: Octavio Segovia MD #### 90521, 62400 #### [facility], [address] [place] [address] Geographic Information Systems Analyst: Alejandra Queen MD,PhD,FADIA #### 26605 #### [facility] [address] [facility] [place], [place] [employer] Information Systems Analyst: Waldemar Billy M.D.,PhD Anders CARL Negative Normal NEGATIVE [facility] Comment on above: Performed By: #### 2 , 4418, 4420, 14254, 809, 33442, 374 #### [facility] [address], [address] [place] [address] Geographic Information Systems Analyst: Octavio Segovia MD #### 00557, 27427 #### [facility], [address] [facility] [place] [address] Geographic Information Systems Analyst: Alejandra Queen MD,PhD,FADIA #### 54665 #### [facility]/[address] [place], [place] [employer]ographic Information Systems Analyst: Waldemar Billy M.D.,PhD T. VULGARIS Negative Normal NEGATIVE [facility] Comment on above: Performed By: #### 2 27, 4418, 4420, 36179, 809, 64307, 374 #### [facility] [address], [address] [place] [address] Geographic Information Systems Analyst: Octavio Segovia MD #### 80814, 12227 #### [facility], [address] [place] [address] Geographic Information Systems Analyst: Alejandra Queen MD,PhD,FADIA #### 33482 #### [facility] [place], [place] Geographic Information Systems Analyst: Waldemar Billy M.D.,PhD RHEUMATOID FACTORon 08-03-19 25 RHEUMATOID FACTOR 41 IU/mL High <14 [facility] Comment on above: Performed By: #### 2 27, 4418, 4420, 84684, 809, 66198, 374 #### [facility] [place] [address] Geographic Information Systems Analyst: Octavio Segovia MD #### 92430, 14432 #### [facility], [address] [place], [place] [employer] Information Systems Analyst: Alejandra Queen MD,PhD,FADIA #### 18651 #### [facility]/[place] [address] [facility] [place], [place] [employer] Information Systems Analyst: Waldemar Billy M.D.,PhD SED RATE BY MODIFIED WESTERG RENon 08-02-2024 SED RATE BY MODIFIED WESTERGREN 36 mm/h High < OR = 20 [facility] Comment on above: Performed By: #### 2 27, 4418, 4420, 77951, 809, 74328, 374 #### [facility] [address], [address] [place] [address] Geographic Information Systems Analyst: Octavio Segovia MD #### 80388, 95237 #### [facility], [address] [place] [address] Geographic Information Systems Analyst: Alejandra Queen MD,PhD,FADIA #### 81866 #### [facility] [address] [facility] [place], [place] [employer] Information Systems Analyst: Waldemar Billy M.D.,PhD TRANSTHORACIC ECHO (TTE) [facility] 07-23-2024 TRANSTHORACIC ECHO (TTE) COMPLETE [facility] [address] [facility], [address], [place] [address] TRANSTHORACIC ECHOCARDIOGRAM REPORT Patient Name: KRUNAL LEOS Reading Physician: [id number] David Nguyễn MD Study Date: 07/23/2024 Ordering Provider: [id number] PADRON MRN/PID: [id number] Fellow: Nurse: Date of /Age: 5 1965 Stove Polisher: Ena hernandez [facility] [[email or web address] Gender assigned at M Additional Staff: : Height: 175.26 cm Admit Date: Weight: 141.07 kg Admission Status: Outpatient BSA / BMI: 2.49 m2 / 45.93 kg/m2 Blood Pressure: 157/78 mmHg Department Location: [facility] Study Type: TRANSTHORACIC ECHO (TTE) COMPLETE Diagnosis/ICD: Pulmonary hypertension, unspecified-I27.20 Indication: Pulmonary hypertension CPT Code: Echo Complete w Full Doppler-[id number] Study Detail: The following Echo studies were [...] VEINS: PulmV A Revs Dur: 121.00 msec [id number] David Nguyễn MD Electronically signed on 07/24/2024 at 9:17:53 AM Final [facility] CT CHEST HIGH RESOLUTIONon 0 07-20-2024 CT CHEST HIGH RESOLUTION Interpreted By: Julissa Bolaños, STUDY: CT CHEST HIGH RESOLUTION; 07/20/2024 12:56 pm INDICATION: Signs/Symptoms:ILD. COMPARISON: None. ACCESSION NUMBER(S): [id number] ORDERING CLINICIAN: ROSALINO PADRON TECHNIQUE: Using helical [...] Julissa Banuelos 07/20/2024 1:33 PM Dictation workstation: [id number] [facility] CT Cheston 07-20-2024 1. Extensive subpleu ral [...] Julissa Banuelos 07/20/2024 1:33 PM Dictation workstation: [id number] Interpreted By: Julissa Pleitez, STUDY: CT CHEST HIGH RESOLUTION; 07/20/2024 12:56 pm INDICATION: Signs/Symptoms:ILD. COMPARISON: None. ACCESSION NUMBER(S): [id number] ORDERING CLINICIAN: ROSALINO PADRON TECHNIQUE: Using helical [...] thoracic spine. Mild bilateral gynecomastia. [facility] Julissa Bolaños MD - 07/20/2024 Interpreted By: Julissa Bolaños, STUDY: CT CHEST HIGH RESOLUTION; 07/20/2024 12:56 pm INDICATION: Signs/Symptoms:ILD. COMPARISON: None. ACCESSION NUMBER(S): [id number] ORDERING CLINICIAN: ROSALINO PADRON TECHNIQUE: Using helical [...] Julissa Banuelos 07/20/2024 1:33 PM Dictation workstation: [id number] [facility] Work Phone: Radiology Study observation (narrative) [facility] Work Phone: CT ChestOrdered By: Julissa Banuelos on 07-20-2024 [facility] Work Phone: Office Visit Reporton 2024 Office Visit Report Normal [place] [facility] Pulmonary Visit Reporton Pulmonary Visit Report Normal [place] [facility] Office Visit Reporton 2024 Office Visit Report Normal [place] [facility] 36on 06-01-2024 36 Patient called in [...] bleed since he is on such aggressive anticoagulation/antipla telet therapy. Patient was concerned about having a bruise on his foot that he did not remember even bumping. He was wondering if the anticoagulation/antipla telet therapy was too much if he is bruising so easily. I told him this can be expected.. We did review signs and symptoms of a excessive and prolonged bleeding such as blood in urine or stool. He verbalized understanding that these would be cause for concern and to seek medical attention immediately. Normal [facility] 12 Lead EKG performed by [facility] on 05-21-2024 12 Lead EKG performed by [facility] Normal [facility] Basic Metabolic Profile (BMP )on 05-21-2024 BUN/CRE 21.2 RATIO High 01-18 [facility] Comment on above: Performed By: #### L 500.2500 ####[facility] [id number] [place], [address] CA,Total 9.6 mg/dL Normal 8.5-10.1 [facility] Comment on above: Performed By: #### L 500.2500 ####[facility] [address] [place], [address] Chloride [Moles/Vol] 99 mmol/L Normal 98-107 [facility] Comment on above: Performed By: #### L 500.2500 ####[facility] [address] [place], [address] CO2 [Moles/Vol] 26.0 mmol/L Normal 21.0-32.0 [facility] Comment on above: Performed By: #### L 500.2500 ####[facility] [address] [place], [address] Creatinine [Mass/Vol] 1.60 mg/dL High 0.70-1.30 [facility] Comment on above: Result Comment: The validity of the calculated GFR GFRAA in patients over70 years has not been determined. Clinical correlation isessential. Performed By: #### L 500.2500 ####[facility] [address] [place], [address] EST GFR - AA 57 mL/min Low >60 [facility] Comment on above: Result Comment: Afri can Angolan GFR Calc Performed By: #### L 500.2500 ####[facility] [address] [place], [address] GAP 12 Normal 5-15 [facility] Comment on above: Performed By: #### L 500.2500 ####[facility] [address] [place], [address] GFR/1.73 sq M.predicted among non-blacks MDRD (S/P/Bld) [Vol rate/Area] 47 mL/min/{1.73_m2} Low >60 [facility] Comment on above: Result Comment: Non- GFR Calc Performed By: #### L 500.2500 ####[facility] [address] [place], [address] Glucose [Mass/Vol] 174 mg/dL High 74-106 [facility] Comment on above: Result Comment: Fast ing Glucose result greater than or equal to 126 mg/dLsuggests DIABETES MELLITUS per A.D.A. criteria. Performed By: #### L 500.2500 ####[facility] [address] [place], [address] Potassium [Moles/Vol] 3.8 mmol/L Normal 3.5-5.1 [facility] Comment on above: Performed By: #### L 500.2500 ####[facility] [address] [place], [address] Sodium [Moles/Vol] 136 mmol/L Normal 136-145 [facility] Comment on above: Performed By: #### L 500.2500 ####[facility] [address] [place], [place], [address] Urea nitrogen [Mass/Vol] 34 mg/dL High 7-18 [facility] Comment on above: Performed By: #### L 500.2500 ####[facility] [address] [place], [place], [address] Bilirubin directOrdered By: SAV Rojas on 05-21-2024 Bilirubin.direct [Mass/Vol] 0.32 mg/dL High 0.00-0.30 [facility] Bilirubin, totalOrdered By: SAV Rojas on 05-21-2024 Bilirubin [Mass/Vol] 1.40 mg/dL High 0.20-1.00 [facility] Comment on above: For patients on eltr ombopag therapy, use of Dimension Lennon TBIL is not recommended. Blood urea nitrogen (BUN)/cr eatinine ratioOrdered By: Lydia Segura on 05-21-2024 Urea nitrogen/Creatinine [Mass ratio] 21.2 mg/mg High 10- [facility] Carbon dioxide measurementOr dered By: Lydia Segura on 05-21-2024 CO2 [Moles/Vol] 26.0 mmol/L 21.0-32.0 [facility] Cardiology Visit Reporton Cardiology Visit Report Normal [facility] Chloride measurementOrdered By: Lydia Segura on 05-21-2024 Chloride [Moles/Vol] 99 mmol/L 98-107 [facility] Glomerular filtration rate ( GFR) estimationOrdered By: Lydia Colton on 05-21-2024 GFR/1.73 sq M.predicted among non-blacks MDRD (S/P/Bld) [Vol rate/Area] 47 mL/min/{1.73_m2} Low >60 [facility] Comment on above: Non- GFR Calc Glucose measurementOrdered B y: Lydia Segura on 05-21-2024 Glucose [Mass/Vol] 174 mg/dL High 74-106 [facility] Comment on above: Fasting Glucose resu lt greater than or equal to 126 mg/dL suggests DIABETES MELLITUS per A.D.A. criteria. Laboratory - Chemistry and C hemistry - challengeOrdered By: SAV Rojas on 05-21-2024 AST [Catalytic activity/Vol] 18 U/L 15-37 [facility] Liver Profileon 05-21-2024 Albumin [Mass/Vol] 3.4 g/dL Normal 3.2-5.0 [facility] Comment on above: Order Comment: 1 mo. after 1st dose of OFEV, monthly for 1st 3 mo Performed By: #### L 500.3400 ####[facility] [address] [place], [address] ALK P 81 U/L Normal 45-117 [facility] Comment on above: Order Comment: 1 mo. after 1st dose of OFEV, monthly for 1st 3 mo Performed By: #### L 500.3400 ####[facility] [address] [place], [address] ALT [Catalytic activity/Vol] 17 U/L Normal 16-61 [facility] Comment on above: Order Comment: 1 mo. after 1st dose of OFEV, monthly for 1st 3 mo Performed By: #### L 500.3400 ####[facility] [address] [place], [address] AST [Catalytic activity/Vol] 18 U/L Normal 15-37 [facility] Comment on above: Order Comment: 1 mo. after 1st dose of OFEV, monthly for 1st 3 mo Performed By: #### L 500.3400 ####[facility] [address] [place], [address] Bilirubin [Mass/Vol] 1.40 mg/dL High 0.20-1.00 [facility] Comment on above: Order Comment: 1 mo. after 1st dose of OFEV, monthly for 1st 3 mo Result Comment: For patients on eltrombopag therapy, use of Dimension Lennon TBIL is not recommended. Performed By: #### L 500.3400 ####[facility] [address] [place], [address] Bilirubin.direct [Mass/Vol] 0.32 mg/dL High 0.00-0.30 [facility] Comment on above: Order Comment: 1 mo. after 1st dose of OFEV, monthly for 1st 3 mo Performed By: #### L 500.3400 ####[facility] [address] [place], [address] Globulin (S) [Mass/Vol] 5.1 g/dL High 2.2-4.2 [facility] Comment on above: Order Comment: 1 mo. after 1st dose of OFEV, monthly for 1st 3 mo Performed By: #### L 500.3400 ####[facility] [address] [place], [address] T PROT 8.5 g/dL High 6.4-8.2 [facility] Comment on above: Order Comment: 1 mo. after 1st dose of OFEV, monthly for 1st 3 mo Performed By: #### L 500.3400 ####[facility] [address] [place], [address] No Panel InformationOrdered By: SAV Rojas on 05-21-2024 18 U/L 15-37 [facility] Potassium measurementOrdered By: Lydia Segura on 05-21-2024 Potassium [Moles/Vol] 3.8 mmol/L 3.5-5.1 [facility] Serum anion gap measurementO rdered By: Lydia Segura on 05-21-2024 Anion gap [Moles/Vol] 12 mmol/L 5-15 [facility] Serum globulin measurementOr dered By: SAV Rojas on 05-21-2024 Globulin (S) [Mass/Vol] 5.1 g/dL High 2.2-4.2 [facility] Serum or plasma alanine briscoe otransferase (ALT) measurementOrdered By: SAV Rojas on 05-21-2024 ALT [Catalytic activity/Vol] 17 U/L 16-61 [facility] Serum or plasma albumin grazyna urement (mass/volume)Ordered By: SAV Rojas on 05-21-2024 Albumin [Mass/Vol] 3.4 g/dL 3.2-5.0 [facility] Serum or plasma alkaline benjamin sphatase measurementOrdered By: SAV Rojas on 05-21-2024 ALP [Catalytic activity/Vol] 81 U/L 45-117 [facility] Serum or plasma calcium grazyna urement (mass/volume)Ordered By: Lydia Segura on 05-21-2024 Calcium [Mass/Vol] 9.6 mg/dL 8.5-10.1 [facility] Serum or plasma creatinine m easurement (mass/volume)Ordered [...] Urea nitrogen [Mass/Vol] 34 mg/dL High 7-18 [facility] Sodium levelOrdered By: Macho Segura on 05-21-2024 Sodium [Moles/Vol] 136 mmol/L 136-145 [facility] Total proteinOrdered By: SAV Rojas on 05-21-2024 Protein [Mass/Vol] 8.5 g/dL High 6.4-8.2 [facility] 36on 05-13-2024 36 Patient lvm with questions about what medications he should be taking post op. I returned his call but had to [facility] with call back number. Normal [facility] 36on 05-08-2024 36 Spoke with Mr. [...] year. Sooner prn. MD Jose Antonio [facility] ECG 12-LEADon 05-07-2024 ECG 12-LEAD IMPRESSION: Sinus rhythm Atrial premature complex LVH with IVCD and secondary repol abnrm Inferior infarct, age indeterminate Electronically Signed On 05-07-2024 10:34:37 EST by Krunal Allen [facility] APTTon 05-06-2024 aPTT Coag (Bld) [Time] 22.1 s Normal 20.0-30.5 [facility] Comment on above: Result Comment: DAPHNE Lang COMMENTS: NOTE: The therapeutic time for Heparin anticoagulation, based on Xa activity inhibition, is an APTT of 46-80 seconds. Performed By: #### L AB325, [id number] ####Geographic Information Systems Analyst: RADHA SIMMONS ([id number])[facility] ([address] BASIC METABOLIC PANELon Anion gap [Moles/Vol] 9 mmol/L Normal 3-13 [facility] Comment on above: Performed By: #### L AB15 #### Geographic Information Systems Analyst: RADHA SIMMONS ([id number]) [facility] ([facility]) [address] [place] [address] Calcium [Mass/Vol] 8.5 mg/dL Low 8.8-10.0 [facility] Comment on above: Performed By: #### L AB15 #### Geographic Information Systems Analyst: RADHA SIMMONS ([id number]) [facility] ([facility] [address] [place] [address] Chloride [Moles/Vol] 103 mmol/L Normal 98-107 [facility] Comment on above: Performed By: #### L AB15 #### Geographic Information Systems Analyst: RADHA SIMMONS ([id number]) [facility] [address] [place] [address] CO2 [Moles/Vol] 22 mmol/L Normal 22-29 [facility] Comment on above: Performed By: #### L AB15 #### Geographic Information Systems Analyst: RADHA SIMMONS ([id number]) [facility]) [address] [place] [address] Creatinine [Mass/Vol] 0.96 mg/dL Normal 0.72-1.25 [facility] Comment on above: Performed By: #### L AB15 #### Geographic Information Systems Analyst: RADHA SIMMONS ([phone]) [facility] [address] [place] [address] GLOMERULAR FILTRATION RATE ML/MIN/1.73 SQ M.PREDICTED >90.0 Normal >60.0 [facility] Comment on above: Result Comment: Calc ulation based on the Chronic Kidney Disease Epidemiology Collaboration (CKD-EPI) equation refit without adjustment for race Performed By: #### L AB15 #### Geographic Information Systems Analyst: RADHA SIMMONS ([id number]) [facility] [address] [place] [address] Glucose [Mass/Vol] 107 mg/dL High 74-100 [facility] Comment on above: Performed By: #### L AB15 #### Geographic Information Systems Analyst: RADHA SIMMONS ([id number]) [facility]) [address] [place] [address] Potassium [Moles/Vol] 3.9 mmol/L Normal 3.5-5.1 [facility] Comment on above: Result Comment: TC Significant interference from hemolysis. Result integrity compromised. Interpret with caution. Performed By: #### L AB15 #### Geographic Information Systems Analyst: RADHA SIMMONS ([id number]) [facility] ([facility]) [address] [place] [address] Sodium [Moles/Vol] 134 mmol/L Low 136-145 [facility] Comment on above: Performed By: #### L AB15 #### Geographic Information Systems Analyst: RADHA SIMMONS ([id number]) [facility] ([facility]) [address] [place] [address] Urea nitrogen [Mass/Vol] 31 mg/dL High 9-23 [facility] Comment on above: Performed By: #### L AB15 #### Geographic Information Systems Analyst: RADHA SIMMONS ([id number]) [facility] ([facility]) [address] [place] [address] Basic metabolic 1998 panelon 05-06-2024 Anion gap [Moles/Vol] 9 mmol/L 3 - 13 mmol/L [facility] Calcium [Mass/Vol] 8.5 mg/dL Low 8.8 - 10. 0 mg/dL [facility] Chloride [Moles/Vol] 103 mmol/L 98 - 10 7 mmol/L [facility] CO2 [Moles/Vol] 22 mmol/L 22 - 29 mmol/L [facility] Creatinine [Mass/Vol] 0.96 mg/dL 0.72 - 1.25 mg/dL [facility] GFR/1.73 sq M.predicted (S/P/Bld) [Vol rate/Area] - PINF [facility] Comment on above: Calculation based on the Chronic Kidney Disease Epidemiology Collaboration (CKD-EPI) equation refit without adjustment for race Glucose [Mass/Vol] 107 mg/dL High 74 - 100 mg/dL [facility] Interpretation and review of laboratory results Abnormal [facility] Potassium [Moles/Vol] 3.9 mmol/L 3.5 - 5.1 mmol/L [facility] Comment on above: TC Significant interference from hemolysis. Result integrity compromised. Interpret with caution. Sodium [Moles/Vol] 134 mmol/L Low 136 - 145 mmol/L [facility] Urea nitrogen [Mass/Vol] 31 mg/dL High 9 - 23 mg/dL [facility] CBC (HEMOGRAM)on 05-06-2024 Erythrocyte distribution width (RBC) [Ratio] 20.8 % High 11.5-15.0 [facility] Comment on above: Performed By: #### L AB294 ####Geographic Information Systems Analyst: RADHA SIMMONS ([phone])[facility])[address] [place] [address] Hematocrit (Bld) [Volume fraction] 30.1 % Low 40.0-52.0 [facility] Comment on above: Performed By: #### L AB294 ####Geographic Information Systems Analyst: RADHA SIMMONS ([id number])[facility])[address] [place] [address] Hemoglobin (Bld) [Mass/Vol] 9.0 g/dL Low 13.0-18.0 [facility] Comment on above: Performed By: #### L AB294 ####Geographic Information Systems Analyst: RADHA SIMMONS ([id number])[facility])[address] [place] [address] MCH (RBC) [Entitic mass] 22.5 pg Low 26.0-34.0 [facility] Comment on above: Performed By: #### L AB294 ####Geographic Information Systems Analyst: RADHA SIMMONS ([phone])[facility])[address] [place] [address] MCHC 29.9 % Low 30.5-36.0 [facility] Comment on above: Performed By: #### L AB294 ####Geographic Information Systems Analyst: RADHA SIMMONS ([phone])[facility])[address] [place] [address] MCV (RBC) [Entitic vol] 75.3 fL Low 77.0-99.0 [facility] Comment on above: Performed By: #### L AB294 ####Geographic Information Systems Analyst: RADHA SIMMONS ([id number])[facility])[address] [place] [address] Platelet mean volume (Bld) [Entitic vol] 10.2 fL Normal 9.0-12.7 [facility] Comment on above: Performed By: #### L AB294 ####Geographic Information Systems Analyst: RADHA SIMMONS ([id number])[facility] ([facility])[address] [place] [address] Platelets (Bld) [#/Vol] 243 10*3/uL Normal 140-440 [facility] Comment on above: Performed By: #### L AB294 ####Geographic Information Systems Analyst: RADHA SIMMONS ([id number])[facility])[address] [place] [address] RBC (Bld) [#/Vol] 4.00 10*6/uL Low 4.40-5.90 [facility] Comment on above: Performed By: #### L [id number] ####Geographic Information Systems Analyst: RADHA SIMMONS ([id number])[facility])[address] [place] [address] WBC (Bld) [#/Vol] 11.1 10*3/uL High 3.6-10.7 [facility] Comment on above: Performed By: #### L [id number] ####Geographic Information Systems Analyst: RADHA ISMMONS ([id number])[facility] ([facility])[address] [place] [address] CBC panel Auto (Bld)Ordered By: Krupa Rodriguez on 05-06-2024 Erythrocyte distribution width (RBC) [Ratio] 20.8 % High 11.5 - 15.0 % [facility] Hematocrit (Bld) [Volume fraction] 30.1 % Low 40.0 - 52.0 % [facility] Hemoglobin (Bld) [Mass/Vol] 9 g/dL Low 13.0 - 18.0 g/dL [facility] Interpretation and review of laboratory results Abnormal [facility] MCH (RBC) [Entitic mass] 22.5 pg Low 26.0 - 34.0 pg [facility] MCHC (RBC) [Mass/Vol] 29.9 % Low 30.5 - 36.0 % [facility] MCV (RBC) [Entitic vol] 75.3 fL Low 77.0 - 99.0 fL [facility] Platelet mean volume (Bld) [Entitic vol] 10.2 fL 9.0 - 12.7 fL [facility] Platelets (Bld) [#/Vol] 243 10*3/uL 140 - 440 10*3/uL [facility] RBC (Bld) [#/Vol] 4 10*6/uL Low 4.40 - 5.9 0 10*6/uL [facility] WBC (Bld) [#/Vol] 11.1 10*3/uL High 3.6 - 10.7 10*3/uL [facility] Consulton 05-06-2024 Consult CONSULT NOTE: STROKE [...] PLAN: 1. Obtain P2 Y12 study 2. [place] Brilinta 90 mg twice daily x 30 [...] 10 to 15 minutes. Was hospitalized at [facility] and had Plavix added at that time. [...] Symptoms resolved. He was again hospitalized at [facility]. No medication changes were made. April [...] Pt denie (more content not included)... Normal [facility] Laboratory - Coagulationon 0 05-06-2024 PT Coag (Bld) [Time] 10.9 s 9.0 - 12.0 s [facility] No Panel InformationOrdered By: Ana Maria Mancini on 05-06-2024 Interpretation and review of laboratory results Normal [facility] PRU Test (P2Y12) 211 180 - PINF [facility] Comment on above: >180 - 376 PRU [P2Y1 2 Reaction Units] - No drug present 10-180 PRU [P2Y12 Reaction Units] - Decreased platelet reactivity to P2Y12 inhibitor. [facility] No Panel Informationon 05-06 Interpretation and review of laboratory results Normal [facility] Nursing Noteon 05-06-2024 Nursing Note Phase 2 care complet ed. Iv removed and dc instructions provided. Will dc to home with family Right groin site benign and neuro unchanged NIH 0 Normal [facility] Nursing Note Patient arrived from home, Dr. Culp in to speak with the patient regarding DCA with possible carotid stenting, consent obtained. Patient was placed supine on exam table prepped and draped in sterile fashion. Telemetry monitors placed, sedation provided by MANAGER EXPORT. Patient tolerated procedure well. Transfer to ICU. Normal [facility] PROTHROMBIN TIMEon 5 INR Coag (PPP) [Relative time] 1.0 {INR} Normal 0.9-1.1 [facility] Comment on above: Result Comment: Luciano [...] prevent Myocardial Infarction Performed By: #### L AB325, [id number] ####Geographic Information Systems Analyst: RADHA SIMMONS ([phone])[facility] ([facility])[address] [place] [address] PT Coag (PPP) [Time] 10.9 s Normal 9.0-12.0 [facility] Comment on above: Performed By: #### L AB325, [id number] ####Geographic Information Systems Analyst: RADHA SIMMONS ([id number])[facility] ([facility])[address] [place] [address] PRU TEST (P2Y12)on 5 PRU TEST (P2Y12) 211 Normal >=180 [facility] Comment on above: Result Comment: >180 - 376 PRU [P2Y12 Reaction Units] - No drug present 10-180 PRU [P2Y12 Reaction Units] - Decreased platelet reactivity to P2Y12 inhibitor. 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 He has had multiple events despite treatment with Eliquis (for atrial fibrillation), ASA and clopidogrel. The most recent event was 2 weeks ago, and he follows in [facility]. CTA was concerning for left ICA severe stenosis and he presented for conventional angiography to evaluate and treat carotid stenosis if present and further evaluate right MCA stenosis. Consent: The benefits, alternatives, and risks to the procedure including but not limited to stroke, bleed, infection, dissection, pseudoaneurysm, AL, renal failure, radiation injury, hair loss, contrast [...] 4F dilator was exchanged for a 5 Swedish short sheath over a guidewire. The short [...] The left midd (more content not included)... [facility] EM[facility]ENC[facility]PARTMENT RADIOLOGY SYSTEM Oziel Culp MD - 05/06/2024 Patient Name: KRUNAL LEOS : 1965 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 He has had multiple events despite treatment with Eliquis (for atrial fibrillation), ASA and clopidogrel. The most recent event was 2 weeks ago, and he follows in [place]. CTA was concerning for left ICA severe stenosis and he presented for conventional angiography to evaluate and treat carotid stenosis if present and further evaluate right MCA stenosis. Consent: The benefits, alternatives, and risks to the procedure including but not limited to stroke, bleed, infection, dissection, pseudoaneurysm, AL, renal failure, radiation injury, hair loss, contrast [...] 4F dilator was exchanged for a 5 Swedish short sheath over a guidewire. The short [...] AP and late (more content not included)... [facility] Radiology Study observation (narrative) [facility] alth RFA Cerebral arteries Bilate ral Views W contrast IAOrdered By: Oziel Culp on 05-06-2024 [facility] Work Phone: aPTT Coag (Bld) [Time]on aPTT Coag (PPP) [Time] 22.1 s 20.0 - 30.5 s [facility] NOTE: The therapeuti c time for Heparin anticoagulation, based on Xa activity inhibition, is an APTT of 46-80 seconds. [facility] Absolute lymphocyte countOrd ered By: Rito Lundberg on 05-05-2024 Lymphocytes Auto (Unsp spec) [#/Vol] 1.51 10*3/uL 0.83-4.51 [facility] Automated lymphocyte count a s percentage of total leukocytesOrdered By: Rito Lundberg on 05-05-2024 Lymphocytes/100 WBC Auto (Unsp spec) 11.3 % Low 19-41 [facility] Basophil percentageOrdered B y: Rito Lundberg on 05-05-2024 Basophils/100 WBC (Bld) 0.4 % 0-1 [facility] Blood manual differential co mment interpretation (narrative result)Ordered By: Rito Lundberg on 05-05-2024 Manual differential comment Cedrick (Bld) [Interp] SCANNED [facility] CBC W/Diff, Automatedon OVALOCYTE 2+ Normal [facility] Comment on above: Performed By: #### L 503.6030, L503.0105, L100.0100, L503.6550 ####[facility] [address] [place], [address] Anisocytosis Ql (Bld) 2+ Normal [facility] Comment on above: Performed By: #### L 503.6030, L503.0105, L100.0100, L503.6550 ####[facility] [address] [place], [address] MICROCYTIC 1+ Normal [facility] Comment on above: Performed By: #### L 503.6030, L503.0105, L100.0100, L503.6550 ####[facility] [address] [place], [address] PLT EST ADEQUATE Normal ADEQ [facility] Comment on above: Performed By: #### L 503.6030, L503.0105, L100.0100, L503.6550 ####[facility] [address] [place], [address] SMEAR COMMENT SCANNED Normal [facility] Comment on above: Performed By: #### L 503.6030, L503.0105, L100.0100, L503.6550 ####[facility] [address] [place], [address] Eosinophil percentageOrdered By: Rito Lundberg on 05-05-2024 Eosinophils/100 WBC (Bld) 2.1 % 0-5 [facility] Erythrocyte distribution wid th ratioOrdered By: Rito Lundberg on 05-05-2024 Erythrocyte distribution width (RBC) [Ratio] 21.0 % High 11.6-14.6 [facility] Erythrocyte distribution wid th standard deviationOrdered By: Rito Lundberg on 05-05-2024 Erythrocyte distribution width (RBC) [Ratio] 56.7 fl High 35.1-43.9 [facility] Ferritinon 05-05-2024 Ferritin [Mass/Vol] 134 ng/mL Normal 26-388 [facility] Comment on above: Performed By: #### L 503.6030, L503.0105, L100.0100, L503.6550 ####[facility] [address] [place], [place], [id number] Hematocrit Auto (Bld) [Volum e fraction]Ordered [facility]: [facility] on 05-05-2024 Hematocrit (Bld) [Volume fraction] 31.6 % Low 40-54 [facility] Hemoglobin measurementOrdere d By: [facility] on 05-05-2024 Hemoglobin (Bld) [Mass/Vol] 9.3 g/dL Low 13.0-16.5 [facility] Immature granulocytes/100 WB C Auto (Bld)Ordered By: [facility] on 05-05-2024 Immature granulocytes/100 WBC (Bld) 0.600 % 0.0-0.9 [facility] Iron measurement (mass/mass) Ordered By: Rito Lundberg on 05-05-2024 Iron (Unsp spec) [Mass/Mass] 74 ug/dL 65-175 [facility] Iron+Iron Binding Capacityon 05-05-2024 Iron [Mass/Vol] 74 ug/dL Normal 65-175 [facility] Comment on above: Performed By: #### L 503.6030, L503.0105, L100.0100, L503.6550 ####[facility] [address] [place], [place], [id number] IRON SATURATION 22.0 Normal 15.0-55.0 [facility] Comment on above: Performed By: #### L 503.6030, L503.0105, L100.0100, L503.6550 ####[facility] [address] [place], [place], [id number] TIBC 337 ug/dL Normal 250-450 [facility] Comment on above: Performed By: #### L 503.6030, L503.0105, L100.0100, L503.6550 ####[facility] [address] [place], [address] MCV (mean corpuscular volume ) determinationOrdered By: Rito Lundberg on 05-05-2024 MCV (RBC) [Entitic vol] 76.5 fL Low 80-94 [facility] Mean corpuscular hemoglobin (MCH) determinationOrdered By: Rito Lundberg on 05-05-2024 MCH (RBC) [Entitic mass] 22.5 pg Low 27.0-32.0 [facility] Monocyte percentageOrdered B y: Rito Lundberg on 05-05-2024 Monocytes/100 WBC (Bld) 8.1 % 0-10 [facility] Neutrophil percentageOrdered By: Rito Lundberg on 05-05-2024 Neutrophils/100 WBC (Bld) 77.5 % High 47-70 [facility] No Panel InformationOrdered By: Rito Lundbegr on 05-05-2024 2+ [facility] Nursing Noteon 05-05-2024 Nursing Note Report given to MARIO marsh, neuro assessment completed along with groin site check. Normal [facility] Oncology Visit Reporton Oncology Visit Report Normal [facility] Ovalocyte detectionOrdered B y: Rito Lundberg on 05-05-2024 Ovalocytes LM Ql (Bld) 2+ [facility] Platelet countOrdered By: Chanell Lundberg on 05-05-2024 Platelets (Bld) [#/Vol] 303 10*3/uL 150-450 [facility] Platelet estimateOrdered By: Rito Lundberg on 05-05-2024 Platelets LM Ql (Bld) ADEQUATE ADEQ [facility] RBC Auto (Bld) [#/Vol]Ordere d By: Rito Lundberg on 05-05-2024 RBC (Bld) [#/Vol] 4.13 10*6/uL Low 4.6-6.2 [facility] Serum or plasma iron saturat ion measurement (mass fraction)Ordered By: Rito Lundberg on 05-05-2024 Iron saturation [Mass fraction] 22.0 % 15.0-55.0 [facility] Vitamin B12on 05-05-2024 Cobalamin (Vitamin B12) [Mass/Vol] 1259 pg/mL High 211-911 [facility] Comment on above: Performed By: #### L 503.6030, L503.0105, L100.0100, L503.6550 ####[facility] [address] [place], [address] Vitamin B12 measurementOrder ed By: Rito Lundberg on 05-05-2024 Cobalamin (Vitamin B12) [Mass/Vol] 1259 pg/mL High 211-911 [facility] White blood cell (WBC) count Ordered By: Rito Lundberg on 05-05-2024 WBC (Bld) [#/Vol] 13.3 10*3/uL High 4.4-11.0 [facility] Pulmonary Visit Reporton Pulmonary Visit Report Normal [facility] Cardiology Visit Reporton Cardiology Visit Report Normal [facility] MR/BMS.BVSon 04-30-2024 MR/BMS.BVS Normal [facility] Office Visit Reporton 2024 Office Visit Report Normal [facility] 36on 04-27-2024 36 Spoke with patient t [...] iv contrast dye, iodine, or shellfish. Normal [facility] Office Visiton 04-27-2024 Follow-up visit [id number] Krunal Leos 1965 M Date Provider Department Center 04/27/2024 [id number], SUZY [facility] None No family history on file Level of Service:91489 [place] OFFICE/OUTPATIENT ESTABLISHED MOD [facility] 30 MIN Reason for Visit and Comments: Follow-up [111239] - discuss carotid duplex 04/06/23 [facility] Progress Noteon 04-27-2024 Progress Note Vascular Surgery [...] Provider, Continuous Glucose Sensor (Dexcom G6 Sensor) [facility] Dexcom G6 Sensor Mis, USE DIRECTED FOR [...] Stallworth MD ergocalciferol (Vitamin D2) 1.25 MG (38392 UT) capsule Take 1 capsule by mouth [...] 06, 2023. 10/06/23 01/06/24 Harmeet Stallworth MD HYDROcodone-acetaminoph en (Gifford) 5-325 MG tablet Take 1 tablet by [...] MD pantop (more content not included)... Normal [facility] Vitamin B12on 04-27-2024 Cobalamin (Vitamin B12) [Mass/Vol] 572 pg/mL Normal 211-911 [facility] Comment on above: Performed By: #### L 100.0100, L100.9950, L503.6550, L503.0105, L503.6030 ####[facility] [address] [place], [address] Absolute lymphocyte countOrd ered By: Cookie White on 04-25-2024 Lymphocytes Auto (Unsp spec) [#/Vol] 1.80 10*3/uL 0.83-4.51 [facility] Automated lymphocyte count a s percentage of total leukocytesOrdered By: White on 04-25-2024 Lymphocytes/100 WBC Auto (Unsp spec) 14.4 % Low 19-41 [facility] Basophil percentageOrdered B y: on 04-25-2024 Basophils/100 WBC (Bld) 0.5 % 0-1 [facility] Bedside Glucoseon 04-25-2024 FINGERSTICK GLU 252 mg/dL High 74-106 [facility] Comment on above: Result Comment: ANI GEMENT OF PATIENT CARE PER NURSING PROTOCOL Performed By: #### L 501.080 ####[facility] [address] [facility] [address] FINGERSTICK GLU 160 mg/dL High 74-106 [facility] Comment on above: Result Comment: ANI GEMENT OF PATIENT CARE PER NURSING PROTOCOL Performed By: #### L 501.080 ####[facility] [address] [facility] [address] FINGERSTICK GLU 249 mg/dL High 74-106 [facility] Comment on above: Result Comment: ANI GEMENT OF PATIENT CARE PER NURSING PROTOCOL Performed By: #### L 501.080 ####[facility] [address] [facility] [address] Bilirubin, totalOrdered By: White on 04-25-2024 Bilirubin [Mass/Vol] 0.60 mg/dL 0.20-1.00 [facility] Blood manual differential co mment interpretation (narrative result)Ordered By: on 04-25-2024 Manual differential comment Cedrick (Bld) [Interp] SCANNED [facility] Blood polychromasia detectio n by light microscopyOrdered By: White on 04-25-2024 Polychromasia LM Ql (Bld) RARE [facility] Blood schistocyte detection by light microscopyOrdered By: on 04-25-2024 Schistocytes LM Ql (Bld) RARE [facility] Brain without Contraston Brain without Contrast Normal [facility] CBC W/Diff, Automatedon 04-02 [employer] CELLS RARE Normal [facility] Comment on above: Performed By: #### L 501.9520, L500.4100, L501.9985, L500.4050, L100.0100 ####[facility] [address] [place], [address] MICROCYTIC 1+ Normal [facility] Comment on above: Performed By: #### L 501.9520, L500.4100, L501.9985, L500.4050, L100.0100 ####[facility] [address] [place], [address] SCHISTOCYTES RARE Normal [facility] Comment on above: Performed By: #### L 501.9520, L500.4100, L501.9985, L500.4050, L100.0100 ####[facility] [address] [place], [address] POLYCHROMASIA RARE Normal [facility] Comment on above: Performed By: #### L 501.9520, L500.4100, L501.9985, L500.4050, L100.0100 ####[facility] [address] [place], [address] SMEAR COMMENT SCANNED Normal [facility] Comment on above: Performed By: #### L 501.9520, L500.4100, L501.9985, L500.4050, L100.0100 ####[facility] [address] [place], [address] Carbon dioxide measurementOr dered By: Cookie Bell on 04-25-2024 CO2 [Moles/Vol] 26.0 mmol/L 21.0-32.0 [facility] Chloride measurementOrdered By: Cookie Bell on 04-25-2024 Chloride [Moles/Vol] 103 mmol/L 98-107 [facility] Comprehensive Metabolic Prof ilon 04-25-2024 Albumin [Mass/Vol] 2.8 g/dL Low 3.2-5.0 [facility] Comment on above: Performed By: #### L 501.9520, L500.4100, L501.9985, L500.4050, L100.0100 ####[facility] [address] [place], [address] Albumin/Globulin [Mass ratio] 0.7 {ratio} Low 0.9-2.4 [facility] Comment on above: Performed By: #### L 501.9520, L500.4100, L501.9985, L500.4050, L100.0100 ####[facility] [address] [place], [address] ALK P 69 U/L Normal 45-117 [facility] Comment on above: Performed By: #### L 501.9520, L500.4100, L501.9985, L500.4050, L100.0100 ####[facility] [address] [place], [address] ALT [Catalytic activity/Vol] 18 U/L Normal 16-61 [facility] Comment on above: Performed By: #### L 501.9520, L500.4100, L501.9985, L500.4050, L100.0100 ####[facility] [address] [place], [address] AST [Catalytic activity/Vol] 13 U/L Low 15-37 [facility] Comment on above: Performed By: #### L 501.9520, L500.4100, L501.9985, L500.4050, L100.0100 ####[facility] [address] [place], [address] Bilirubin [Mass/Vol] 0.60 mg/dL Normal 0.20-1.00 [facility] Comment on above: Result Comment: For patients on eltrombopag therapy, use of Dimension Lennon TBIL is not recommended. Performed By: #### L 501.9520, L500.4100, L501.9985, L500.4050, L100.0100 ####[facility] [address] [place], [address] BUN/CRE 26.3 RATIO High 10-20 [facility] Comment on above: Performed By: #### L 501.9520, L500.4100, L501.9985, L500.4050, L100.0100 ####[facility] [address] [place], [address] CA,Total 8.5 mg/dL Normal 8.5-10.1 [facility] Comment on above: Performed By: #### L 501.9520, L500.4100, L501.9985, L500.4050, L100.0100 ####[facility] [address] [place], [address] Chloride [Moles/Vol] 103 mmol/L Normal 98-107 [facility] Comment on above: Performed By: #### L 501.9520, L500.4100, L501.9985, L500.4050, L100.0100 ####[facility] [address] [place], [address] CO2 [Moles/Vol] 26.0 mmol/L Normal 21.0-32.0 [facility] Comment on above: Performed By: #### L 501.9520, L500.4100, L501.9985, L500.4050, L100.0100 ####[facility] [address] [place], [address] Creatinine [Mass/Vol] 1.14 mg/dL Normal 0.70-1.30 [facility] Comment on above: Result Comment: The validity of the calculated GFR GFRAA in patients over70 years has not been determined. Clinical correlation isessential. Performed By: #### L 501.9520, L500.4100, L501.9985, L500.4050, L100.0100 ####[facility] [address] [place], [address] ECRCL 94.76 ml/min Normal [facility] Comment on above: Performed By: #### L 501.9520, L500.4100, L501.9985, L500.4050, L100.0100 ####[facility] [address] [place], [address] EST GFR - AA 84 mL/min Normal >60 [facility] Comment on above: Result Comment: Afri can Angolan GFR Calc Performed By: #### L 501.9520, L500.4100, L501.9985, L500.4050, L100.0100 ####[facility] [address] [place], [address] GAP 8 Normal 5-15 [facility] Comment on above: Performed By: #### L 501.9520, L500.4100, L501.9985, L500.4050, L100.0100 ####[facility] [address] [place], [address] GFR/1.73 sq M.predicted among non-blacks MDRD (S/P/Bld) [Vol rate/Area] 70 mL/min/{1.73_m2} Normal >60 [facility] Comment on above: Result Comment: Non- GFR Calc Performed By: #### L 501.9520, L500.4100, L501.9985, L500.4050, L100.0100 ####[facility] [address] [place], [address] Globulin (S) [Mass/Vol] 4.0 g/dL Normal 2.2-4.2 [facility] Comment on above: Performed By: #### L 501.9520, L500.4100, L501.9985, L500.4050, L100.0100 ####[facility] [address] [place], [address] Glucose [Mass/Vol] 172 mg/dL High 74-106 [facility] Comment on above: Result Comment: Fast ing Glucose result greater than or equal to 126 mg/dLsuggests DIABETES MELLITUS per A.D.A. criteria. Performed By: #### L 501.9520, L500.4100, L501.9985, L500.4050, L100.0100 ####[facility] [address] [place], [address] Potassium [Moles/Vol] 3.7 mmol/L Normal 3.5-5.1 [facility] Comment on above: Performed By: #### L 501.9520, L500.4100, L501.9985, L500.4050, L100.0100 ####[facility] [address] [place], [address] Sodium [Moles/Vol] 137 mmol/L Normal 136-145 [facility] Comment on above: Performed By: #### L 501.9520, L500.4100, L501.9985, L500.4050, L100.0100 ####[facility] [address] [place], [address] T PROT 6.8 g/dL Normal 6.4-8.2 [facility] Comment on above: Performed By: #### L 501.9520, L500.4100, L501.9985, L500.4050, L100.0100 ####[facility] [address] [place], [address] Urea nitrogen [Mass/Vol] 30 mg/dL High 7-18 [facility] Comment on above: Performed By: #### L 501.9520, L500.4100, L501.9985, L500.4050, L100.0100 ####[facility] [address] [place], [place], [id number] Eosinophil percentageOrdered By: Cookie Arabella on 04-25-2024 Eosinophils/100 WBC (Bld) 3.1 % 0-5 [facility] Erythrocyte distribution wid th ratioOrdered By: Cookie Arabella on 04-25-2024 Erythrocyte distribution width (RBC) [Ratio] 20.5 % High 11.6-14.6 [facility] Erythrocyte distribution wid th standard deviationOrdered By: [facility] Arabella on 04-25-2024 Erythrocyte distribution width (RBC) [Ratio] 54.5 fl High 35.1-43.9 [facility] Glomerular filtration rate ( GFR) estimationOrdered By: [facility] Arabella on 04-25-2024 GFR/1.73 sq M.predicted among non-blacks MDRD (S/P/Bld) [Vol rate/Area] 70 mL/min/{1.73_m2} >60 [facility] Glucose measurementOrdered B y: Cookie Arabella on 04-25-2024 Glucose [Mass/Vol] 172 mg/dL High 74-106 [facility] Gl[facility] deOrdered By: Ochoa Johnson on 04-25-2024 Glucose [Mass/Vol] 252 mg/dL High 74-106 [facility] Hematocrit Auto (Bld) [Volum e fraction]Ordered By: Cookie Bell on 04-25-2024 Hematocrit (Bld) [Volume fraction] 29.2 % Low 40-54 [facility] Hemoglobin A1con 04-25-2024 HbA1c (Bld) [Mass fraction] 7.3 % High 3.8-5.6 [facility] Comment on above: Result Comment: Norm al < 5.7 % Prediabetic 5.7 - 6.4 % Diabetic >or= 6.5 % Please note range changes. Performed By: #### L 501.9520, L500.4100, L501.9985, L500.4050, L100.0100 ####[facility] [address] [facility] [place], [address] Hemoglobin A1c percentageOrd ered By: Cookie Bell on 04-25-2024 HbA1c (Bld) [Mass fraction] 7.3 % High 3.8-5.6 [facility] Hemoglobin measurementOrdere d By: Cookie Bell on 04-25-2024 Hemoglobin (Bld) [Mass/Vol] 8.6 g/dL Low 13.0-16.5 [facility] High density lipoprotein (HD L) measurementOrdered By: [facility] Arabella on 04-25-2024 High density lipoprotein (HDL) measurement 38 mg/dL Low >40 [facility] Immature granulocytes/100 WB C Auto (Bld)Ordered By: [facility] Arabella on 04-25-2024 Immature granulocytes/100 WBC (Bld) 0.600 % 0.0-0.9 [facility] L501.4020on 04-25-2024 TROPONIN-I HS 76 pg/mL Normal 3.0-78.0 [facility] Comment on above: Order Comment: Comme nts: SPECIMEN #3'TROP' Serial specimen #1, #2 or #3: 3 Result Comment: Plea se Note: New Test Units and Gender Specific Reference Ranges. For more information see Policy Stat Procedure Lennon High Sensitivity Troponin (TNIH) and attachments. Performed By: #### L 501.4020 ####[facility] [address] [facility] [place], [address] TROPONIN-I HS 103 pg/mL High 3.0-78.0 [facility] Comment on above: Order Comment: Comme nts: SPECIMEN #2'TROP' Serial specimen #1, #2 or #3: 2 Result Comment: Plea se Note: New Test Units and Gender Specific Reference Ranges. For more information see Policy Stat Procedure Lennon High Sensitivity Troponin (TNIH) and attachments. Performed By: #### L 501.4020 ####[facility] [address] [facility] [place], [address] Lipid Profileon 04-25-2024 Cholesterol [Mass/Vol] 127 mg/dL Normal 200 [facility] Comment on above: Result Comment: <200 mg/dL Desirable 200-240 mg/dL Borderline >240 mg/dL High Risk Performed By: #### L 501.9520, L500.4100, L501.9985, L500.4050, L100.0100 ####[facility] [address] [place], [address] Cholesterol in HDL [Mass/Vol] 38 mg/dL Low [facility] Comment on above: Result Comment: The drugs N-Acetylcysteine and Metamizole may falselydepress this assay. Reference Range HDL <40 mg/dL Low HDL Cholesterol HDL >or= 60 mg/dL High HDL Cholesterol Performed By: #### L 501.9520, L500.4100, L501.9985, L500.4050, L100.0100 ####[facility] [address] [place], [address] Cholesterol in LDL [Mass/Vol] 46 mg/dL Normal 0-130 [facility] Comment on above: Performed By: #### L 501.9520, L500.4100, L501.9985, L500.4050, L100.0100 ####[facility] [address] [place], [address] Cholesterol in VLDL [Mass/Vol] 43 mg/dL High 5-40 [facility] Comment on above: Performed By: #### L 501.9520, L500.4100, L501.9985, L500.4050, L100.0100 ####[facility] [address] [place], [address] Triglyceride [Mass/Vol] 216 mg/dL High [facility] Comment on above: Result Comment: The drugs N-Acetylcysteine and Metamizole may falselydepress this assay.Serum Triglycerides Reference Interval Normal <150 mg/dL Borderline high 150 - 199 mg/dL High 200 - 499 mg/dL Very High > or = 500 mg/dL Performed By: #### L 501.9520, L500.4100, L501.9985, L500.4050, L100.0100 ####[facility] [address] [place], [address] Low density lipoprotein (LDL ) cholesterol measurementOrdered By: Cookie White on 04-25-2024 Low density lipoprotein (LDL) cholesterol measurement 46 mg/dL 0-130 [facility] MCV (mean corpuscular volume ) determinationOrdered By: White on 04-25-2024 MCV (RBC) [Entitic vol] 75.3 fL Low 80-94 [facility] MR/CON.PCM.NEon 04-25-2024 MR/CON.PCM.NE Normal [facility] Mean corpuscular hemoglobin (MCH) determinationOrdered By: White on 04-25-2024 MCH (RBC) [Entitic mass] 22.2 pg Low 27.0-32.0 [facility] Monocyte percentageOrdered B y: White on 04-25-2024 Monocytes/100 WBC (Bld) 9.8 % 0-10 [facility] Neutrophil percentageOrdered By: White on 04-25-2024 Neutrophils/100 WBC (Bld) 71.6 % High 47-70 [facility] No Panel InformationOrdered By: White on 04-25-2024 13 U/L Low 15-37 [facility] Platelet countOrdered By: Katey joshua Arabella on 04-25-2024 Platelets (Bld) [#/Vol] 300 10*3/uL 150-450 [facility] Potassium measurementOrdered By: Cookie Arabella on 04-25-2024 Potassium [Moles/Vol] 3.7 mmol/L 3.5-5.1 [facility] RBC Auto (Bld) [#/Vol]Ordere d By: Cookie White on 04-25-2024 RBC (Bld) [#/Vol] 3.88 10*6/uL Low 4.6-6.2 [facility] Serum globulin measurementOr dered By: Cookie Arabella on 04-25-2024 Globulin (S) [Mass/Vol] 4.0 g/dL 2.2-4.2 [facility] Serum or plasma alanine briscoe otransferase (ALT) measurementOrdered By: Cookie Bell on 04-25-2024 ALT [Catalytic activity/Vol] 18 U/L 16-61 [facility] Serum or plasma albumin grazyna urement (mass/volume)Ordered By: Cookie Bell on 04-25-2024 Albumin [Mass/Vol] 2.8 g/dL Low 3.2-5.0 [facility] Serum or plasma alkaline benjamin sphatase measurementOrdered By: Cookie Bell on 04-25-2024 ALP [Catalytic activity/Vol] 69 U/L 45-117 [facility] Serum or plasma calcium grazyna urement (mass/volume)Ordered By: Cookie Bell on 04-25-2024 Calcium [Mass/Vol] 8.5 mg/dL 8.5-10.1 [facility] Serum or plasma cholesterol measurement (mass/volume)Ordered By: Cookie Bell on 04-25-2024 Cholesterol [Mass/Vol] 127 mg/dL <200 [facility] Serum or plasma creatinine m easurement (mass/volume)Ordered By: Cookie Bell on 04-25-2024 Creatinine [Mass/Vol] 1.14 mg/dL 0.70-1.30 [facility] Serum or plasma thyroid stim ulating hormone (TSH) measurement (units/volume)Ordered By: Cookie Bell on 04-25-2024 TSH Qn 5.220 uIU/mL High 0.358-3.740 [facility] Serum or plasma urea nitroge n measurement (mass/volume)Ordered By: Cookie Bell on 04-25-2024 Urea nitrogen [Mass/Vol] 30 mg/dL High 7-18 [facility] Sodium levelOrdered By: Autu corin Bell on 04-25-2024 Sodium [Moles/Vol] 137 mmol/L 136-145 [facility] Target cell detectionOrdered By: Cookie Bell on 04-25-2024 Target cells LM Ql (Bld) RARE [facility] Thyroid Stim Hormone (TSH)on 04-25-2024 TSH 5.220 uIU/mL High 0.358-3.740 [facility] Comment on above: Performed By: #### L 501.1181, L500.4100, L501.9985, L500.4050, L100.0100 ####[facility] [address] [place], [place], [id number] Total proteinOrdered By: Cely Bell on 04-25-2024 Protein [Mass/Vol] 6.8 g/dL 6.4-8.2 [facility] Troponin IOrdered By: Cookie Bell on 04-25-2024 Troponin I 76 pg/mL 3.0-78.0 [facility] Very low density lipoprotein (VLDL) cholesterol measurementOrdered By: Cookie Bell on 04-25-2024 Very low density lipoprotein (VLDL) cholesterol measurement 43 mg/dL High 5-40 [facility] White blood cell (WBC) count Ordered By: Cookie Bell on 04-25-2024 WBC (Bld) [#/Vol] 12.5 10*3/uL High 4.4-11.0 [facility] 12 Lead EKGon 04-24-2024 12 Lead EKG Normal [facility] Abdomen Single View (Portabl e)on 04-24-2024 Abdomen Single View (Portable) Normal [facility] Absolute lymphocyte countOrd ered By: Radha Khan on 04-24-2024 Lymphocytes Auto (Unsp spec) [#/Vol] 2.02 10*3/uL 0.83-4.51 [facility] Activated partial thrombopla stin time (aPTT) in platelet poor plasma by coagulation aOrdered By: Daniel Mcneil on 04-24-2024 aPTT Coag (PPP) [Time] 24.8 s 24.1-36.2 [facility] Automated lymphocyte count a s percentage of total leukocytesOrdered By: Radha Khan on 04-24-2024 Lymphocytes/100 WBC Auto (Unsp spec) 14.4 % Low 19-41 [facility] Basic Metabolic Profile (BMP )on 04-24-2024 BUN/CRE 28.5 RATIO High 10-20 [facility] Comment on above: Order Comment: 'TROP ' Serial specimen #1, #2 or #3: 1 Performed By: #### L 500.2500, L300.3900, L300.4310, L100.0100, L501.4020 ####[facility] [address] [place], [place], [id number] CA,Total 8.9 mg/dL Normal 8.5-10.1 [facility] Comment on above: Order Comment: 'TROP ' Serial specimen #1, #2 or #3: 1 Performed By: #### L 500.2500, L300.3900, L300.4310, L100.0100, L501.4020 ####[facility] [address] [place], [address] Chloride [Moles/Vol] 106 mmol/L Normal 98-107 [facility] Comment on above: Order Comment: 'TROP ' Serial specimen #1, #2 or #3: 1 Performed By: #### L 500.2500, L300.3900, L300.4310, L100.0100, L501.4020 ####[facility] [address] [place], [address] CO2 [Moles/Vol] 27.0 mmol/L Normal 21.0-32.0 [facility] Comment on above: Order Comment: 'TROP ' Serial specimen #1, #2 or #3: 1 Performed By: #### L 500.2500, L300.3900, L300.4310, L100.0100, L501.4020 ####[facility] [address] [place], [address] Creatinine [Mass/Vol] 1.30 mg/dL Normal 0.70-1.30 [facility] Comment on above: Order Comment: 'TROP ' Serial specimen #1, #2 or #3: 1 Result Comment: The validity of the calculated GFR GFRAA in patients over70 years has not been determined. Clinical correlation isessential. Performed By: #### L 500.2500, L300.3900, L300.4310, L100.0100, L501.4020 ####[facility] [address] [place], [address] ECRCL 84.56 ml/min Normal [facility] Comment on above: Order Comment: 'TROP ' Serial specimen #1, #2 or #3: 1 Performed By: #### L 500.2500, L300.3900, L300.4310, L100.0100, L501.4020 ####[facility] [address] [place], [address] EST GFR - AA 72 mL/min Normal >60 [facility] Comment on above: Order Comment: 'TROP ' Serial specimen #1, #2 or #3: 1 Result Comment: Afri can Angolan GFR Calc Performed By: #### L 500.2500, L300.3900, L300.4310, L100.0100, L501.4020 ####[facility] [address] [place], [address] GAP 6 Normal 5-15 [facility] Comment on above: Order Comment: 'TROP ' Serial specimen #1, #2 or #3: 1 Performed By: #### L 500.2500, L300.3900, L300.4310, L100.0100, L501.4020 ####[facility] [address] [place], [address] GFR/1.73 sq M.predicted among non-blacks MDRD (S/P/Bld) [Vol rate/Area] 60 mL/min/{1.73_m2} Normal >60 [facility] Comment on above: Order Comment: 'TROP ' Serial specimen #1, #2 or #3: 1 Result Comment: Non- GFR Calc Performed By: #### L 500.2500, L300.3900, L300.4310, L100.0100, L501.4020 ####[facility] [address] [place], [address] Glucose [Mass/Vol] 81 mg/dL Normal 74-106 [facility] Comment on above: Order Comment: 'TROP ' Serial specimen #1, #2 or #3: 1 Performed By: #### L 500.2500, L300.3900, L300.4310, L100.0100, L501.4020 ####[facility] [address] [place], [address] Potassium [Moles/Vol] 4.2 mmol/L Normal 3.5-5.1 [facility] Comment on above: Order Comment: 'TROP ' Serial specimen #1, #2 or #3: 1 Performed By: #### L 500.2500, L300.3900, L300.4310, L100.0100, L501.4020 ####[facility] [address] [place], [address] Sodium [Moles/Vol] 139 mmol/L Normal 136-145 [facility] Comment on above: Order Comment: 'TROP ' Serial specimen #1, #2 or #3: 1 Performed By: #### L 500.2500, L300.3900, L300.4310, L100.0100, L501.4020 ####[facility] [address] [place], [address] Urea nitrogen [Mass/Vol] 37 mg/dL High 7-18 [facility] Comment on above: Order Comment: 'TROP ' Serial specimen #1, #2 or #3: 1 Performed By: #### L 500.2500, L300.3900, L300.4310, L100.0100, L501.4020 ####[facility] [address] [place], [address] Basophil percentageOrdered B y: Radha Khan on 04-24-2024 Basophils/100 WBC (Bld) 0.4 % 0-1 [facility] CBC W/Diff, Automatedon 04-02 Anisocytosis Ql (Bld) 1+ Normal [facility] Comment on above: Performed By: #### L 100.0100, L100.9950, L503.6550, L503.0105, L503.6030 ####[facility] [address] [place], [address] HYPOCHROMASIA 1+ Normal [facility] Comment on above: Performed By: #### L 100.0100, L100.9950, L503.6550, L503.0105, L503.6030 ####[facility] [address] [place], [address] MICROCYTIC 1+ Normal [facility] Comment on above: Performed By: #### L 100.0100, L100.9950, L503.6550, L503.0105, L503.6030 ####[facility] [address] [place], [address] OVALOCYTE 1+ Normal [facility] Comment on above: Performed By: #### L 100.0100, L100.9950, L503.6550, L503.0105, L503.6030 ####[facility] [address] [place], [address] PLT EST ADEQUATE Normal ADEQ [facility] Comment on above: Performed By: #### L 100.0100, L100.9950, L503.6550, L503.0105, L503.6030 ####[facility] [address] [place], [address] RED CELL MORPH N CHROM Normal NORM C C [facility] Comment on above: Performed By: #### L 100.0100, L100.9950, L503.6550, L503.0105, L503.6030 ####[facility] [address] [place], [address] Anisocytosis Ql (Bld) 1+ Normal [facility] Comment on above: Performed By: #### L 500.2500, L300.3900, L300.4310, L100.0100, L501.4020 ####[facility] [address] [place], [address] HYPOCHROMASIA 1+ Normal [facility] Comment on above: Performed By: #### L 500.2500, L300.3900, L300.4310, L100.0100, L501.4020 ####[facility] [address] [place], [address] MICROCYTIC 1+ Normal [facility] Comment on above: Performed By: #### L 500.2500, L300.3900, L300.4310, L100.0100, L501.4020 ####[facility] [address] [place], [address] OVALOCYTE 1+ Normal [facility] Comment on above: Performed By: #### L 500.2500, L300.3900, L300.4310, L100.0100, L501.4020 ####[facility] [address] [place], [address] PLT EST ADEQUATE Normal ADEQ [facility] Comment on above: Performed By: #### L 500.2500, L300.3900, L300.4310, L100.0100, L501.4020 ####[facility] [address] [place], [address] RED CELL MORPH N CHROM Normal NORM C C [facility] Comment on above: Performed By: #### L 500.2500, L300.3900, L300.4310, L100.0100, L501.4020 ####[facility] [address] [place], [address] Chest 1 Viewon 04-24-2024 Chest 1 View Normal [facility] Emergency Department Summary on 04-24-2024 Emergency Department Summary Normal [facility] Eosinophil percentageOrdered By: Radha Khan on 04-24-2024 Eosinophils/100 WBC (Bld) 2.6 % 0-5 [facility] Erythrocyte distribution wid th ratioOrdered By: Radha Khan on 04-24-2024 Erythrocyte distribution width (RBC) [Ratio] 20.5 % High 11.6-14.6 [facility] Erythrocyte distribution wid th standard deviationOrdered By: Radha Khan on 04-24-2024 Erythrocyte distribution width (RBC) [Ratio] 56.2 fl High 35.1-43.9 [facility] Erythrocyte morphology asses smentOrdered By: Daniel Mcneil on 04-24-2024 RBC morphology finding Nom (Bld) N CHROM NORMAL NORM C&C [facility] Erythrocyte morphology asses smentOrdered By: Radha Khan on 04-24-2024 RBC morphology finding Nom (Bld) N CHROM NORMAL NORM C&C [facility] Ferritinon 04-24-2024 Ferritin [Mass/Vol] 102 ng/mL Normal 26-388 [facility] Comment on above: Performed By: #### L 100.0100, L100.9950, L503.6550, L503.0105, L503.6030 ####[facility] [address] [place], [place], [id number] H AND P Exam - Hospitaliston 04-24-2024 H&P Exam - Hospitalist Normal [facility] Hematocrit Auto (Bld) [Volum e fraction]Ordered By: Radha Khan on 04-24-2024 Hematocrit (Bld) [Volume fraction] 33.0 % Low 40-54 [facility] Hemoglobin measurementOrdere d By: Radha Khan on 04-24-2024 Hemoglobin (Bld) [Mass/Vol] 9.0 g/dL Low 13.0-16.5 [facility] Hypochromatic red blood cell detectionOrdered By: Daniel Mcneil on 04-24-2024 Hypochromia Ql (Bld) 1+ [facility] Hypochromatic red blood cell detectionOrdered By: Radha Khan on 04-24-2024 Hypochromia Ql (Bld) 1+ [facility] Immature granulocytes/100 WB C Auto (Bld)Ordered By: Radha Khan on 04-24-2024 Immature granulocytes/100 WBC (Bld) 0.700 % 0.0-0.9 [facility] Iron measurement (mass/mass) Ordered By: Radha Khan on 04-24-2024 Iron (Unsp spec) [Mass/Mass] 64 ug/dL Low 65-175 [facility] Iron+Iron Binding Capacityon 04-24-2024 Iron [Mass/Vol] 64 ug/dL Low 65-175 [facility] Comment on above: Performed By: #### L 100.0100, L100.9950, L503.6550, L503.0105, L503.6030 ####[facility] [address] [place], [address] IRON SATURATION 22.8 Normal 15.0-55.0 [facility] Comment on above: Performed By: #### L 100.0100, L100.9950, L503.6550, L503.0105, L503.6030 ####[facility] [address] [place], [address] TIBC 281 ug/dL Normal 250-450 [facility] Comment on above: Performed By: #### L 100.0100, L100.9950, L503.6550, L503.0105, L503.6030 ####[facility] [address] [place], [address] L501.4020on 04-24-2024 TROPONIN-I HS 106 pg/mL High 3.0-78.0 [facility] Comment on above: Order Comment: 'TROP ' Serial specimen #1, #2 or #3: 1 Result Comment: Plea se Note: New Test Units and Gender Specific Reference Ranges. For more information see Policy Stat Procedure Lennon High Sensitivity Troponin (TNIH) and attachments. Performed By: #### L 501.4020 ####[facility] [address] [place], [address] TROPONIN-I HS 190 pg/mL Invalid Interpretation Code 3.0-78.0 [facility] Comment on above: Order Comment: 'TROP ' Serial specimen #1, #2 or #3: 1 Result Comment: Crit ical Result(s) Called at: 16:51:09 04/24/2024 by: SHERYL. Results read back by Rashawn RAMIREZ Please Note: New Test Units and Gender Specific Reference Ranges. For more information see Policy Stat Procedure Lennon High Sensitivity Troponin (TNIH) and attachments. Performed By: #### L 500.2500, L300.3900, L300.4310, L100.0100, L501.4020 ####[facility] [address] [place], [address] MCV (mean corpuscular volume ) determinationOrdered By: Radha Khan on 04-24-2024 MCV (RBC) [Entitic vol] 77.6 fL Low 80-94 [facility] Magnesiumon 04-24-2024 Magnesium [Mass/Vol] 2.1 mg/dL Normal 1.6-2.6 [facility] Comment on above: Order Comment: Comme nts: may add to ED labs Performed By: #### L 501.5200 ####[facility] [address] [place], [place], [id number] Magnesium measurementOrdered By: Cookie Bell on 04-24-2024 Magnesium [Mass/Vol] 2.1 mg/dL 1.6-2.6 [facility] Mean corpuscular hemoglobin (MCH) determinationOrdered By: Radha Khan on 04-24-2024 MCH (RBC) [Entitic mass] 21.2 pg Low 27.0-32.0 [facility] Monocyte percentageOrdered B y: Radha Khan on 04-24-2024 Monocytes/100 WBC (Bld) 10.2 % High 0-10 [facility] Neutrophil percentageOrdered By: Radha Khan on 04-24-2024 Neutrophils/100 WBC (Bld) 71.7 % High 47-70 [facility] No Panel InformationOrdered By: Daniel Mcneil on 04-24-2024 1+ [facility] No Panel InformationOrdered By: Radha Khan on 04-24-2024+ [facility] Ovalocyte detectionOrdered B y: Daniel Mcneil on 04-24-2024 Ovalocytes LM Ql (Bld) 1+ [facility] Ovalocyte detectionOrdered B y: Radha Khan on 04-24-2024 Ovalocytes LM Ql (Bld) 1+ [facility] Partial Thromboplast Timeon 04-24-2024 aPTT Coag (Bld) [Time] 24.8 s Normal 24.1-36.2 [facility] Comment on above: Performed By: #### L 500.2500, L300.3900, L300.4310, L100.0100, L501.4020 ####[facility] [address] [place], [place], [phone] Platelet countOrdered By: Armen Khan on 04-24-2024 Platelets (Bld) [#/Vol] 361 10*3/uL 150-450 [facility] Platelet estimateOrdered By: Daniel Mcneil on 04-24-2024 Platelets LM Ql (Bld) ADEQUATE [facility] Platelet estimateOrdered By: Radha Khan on 04-24-2024 Platelets LM Ql (Bld) ADEQUATE [facility] Prothrombin Time w/INRon INR Coag (PPP) [Relative time] 1.1 {INR} Normal [facility] Comment on above: Performed By: #### L 500.2500, L300.3900, L300.4310, L100.0100, L501.4020 ####[facility] [address] [place], [address] PT Coag (PPP) [Time] 14.4 s Normal 11.7-14.9 [facility] Comment on above: Performed By: #### L 500.2500, L300.3900, L300.4310, L100.0100, L501.4020 ####[facility] [address] [place], [address] Prothrombin timeOrdered By: Daniel Mcneil on 04-24-2024 PT Coag (PPP) [Time] 14.4 s 11.7-14.9 [facility] RBC Auto (Bld) [#/Vol]Ordere d By: Radha Khan on 04-24-2024 RBC (Bld) [#/Vol] 4.25 10*6/uL Low 4.6-6.2 [facility] Retic Panelon 04-24-2024 IM RET FRACTION 18.00 High 3.00-15.90 [facility] Comment on above: Performed By: #### L 100.0100, L100.9950, L503.6550, L503.0105, L503.6030 ####[facility] [address] [place], [place], [phone] RET-HE 26.3 pg Low 30-35 [facility] Comment on above: Performed By: #### L 100.0100, L100.9950, L503.6550, L503.0105, L503.6030 ####[facility] [address] [place], [place], [phone]) Retic Count 1.99 High 0.5-1.5 [facility] Comment on above: Performed By: #### L 100.0100, L100.9950, L503.6550, L503.0105, L503.6030 ####[facility] [address] [place], [place], [phone]) Reticulocyte hemoglobin equi valent (RET-He) measurementOrdered By: Radha Khan on 04-24-2024 Hemoglobin (Reticulocytes) [Entitic mass] 26.3 pg Low 30-35 [facility] Reticulocytes Auto (Bld) [#/ Vol]Ordered By: Radha Khan on 04-24-2024 Reticulocytes/100 RBC (Bld) 1.99 % High 0.5-1.5 [facility] STROKE Brain/Head without Co nton 04-24-2024 STROKE Brain/Head without Cont Normal [facility] STROKE CTA Head AND Neck W/C onon 04-24-2024 STROKE CTA Head AND Neck W/Con Normal [facility] Serum or plasma iron saturat ion measurement (mass fraction)Ordered By: Radha Khan on 04-24-2024 Iron saturation [Mass fraction] 22.8 % 15.0-55.0 [facility] Vitamin B12 measurementOrder ed By: Radha Khan on 04-24-2024 Cobalamin (Vitamin B12) [Mass/Vol] 572 pg/mL 211-911 [facility] White blood cell (WBC) count Ordered By: Radha Khan on 04-24-2024 WBC (Bld) [#/Vol] 14.1 10*3/uL High 4.4-11.0 [facility] 36on 04-22-2024 36 LVM to let patient k now he is scheduled for surgery and to call back to go over presurgical instructions Normal [facility] 36 Call ref# [id number]. No Prior authorization needed for inpatient 24 hour observation. Normal [facility] Pulmonary Visit Reporton Pulmonary Visit Report Normal [facility] Culture, Blood (WB)on 2024 CUB Blood cultures x2, f rom two different sites No growth in 5 days. Normal [facility] Comment on above: Performed By: #### M 200.1000, M100.636 ####[facility] [address] [place], [place], [phone] Endocrinology Visit Reporton 04-16-2024 Endocrinology Visit Report Normal [facility] No Panel Informationon 04-16 7.7 % High 4.2-6.3 [facility] Absolute lymphocyte countOrd ered By: Cuco Soler on 04-15-2024 Lymphocytes Auto (Unsp spec) [#/Vol] 0.77 10*3/uL Low 0.83-4.51 [facility] Automated lymphocyte count a s percentage of total leukocytesOrdered By: Cuco Soler on 04-15-2024 Lymphocytes/100 WBC Auto (Unsp spec) 7.0 % Low 19-41 [facility] Basic Metabolic Profile (BMP )on 04-15-2024 BUN/CRE 29.8 RATIO High 10-20 [facility] Comment on above: Performed By: #### L 100.0100, L500.2500 ####[facility] [address] [place], [place], [phone] CA,Total 9.4 mg/dL Normal 8.5-10.1 [facility] Comment on above: Performed By: #### L 100.0100, L500.2500 ####[facility] [address] [place], [address] Chloride [Moles/Vol] 103 mmol/L Normal 98-107 [facility] Comment on above: Performed By: #### L 100.0100, L500.2500 ####[facility] [address] [place], [address] CO2 [Moles/Vol] 24.0 mmol/L Normal 21.0-32.0 [facility] Comment on above: Performed By: #### L 100.0100, L500.2500 ####[facility] [address] [place], [address] Creatinine [Mass/Vol] 1.14 mg/dL Normal 0.70-1.30 [facility] Comment on above: Result Comment: The validity of the calculated GFR GFRAA in patients over70 years has not been determined. Clinical correlation isessential. Performed By: #### L 100.0100, L500.2500 ####[facility] [address] [place], [address] ECRCL 94.72 ml/min Normal [facility] Comment on above: Performed By: #### L 100.0100, L500.2500 ####[facility] [address] [place], [address] EST GFR - AA 84 mL/min Normal >60 [facility] Comment on above: Result Comment: Afri can Angolan GFR Calc Performed By: #### L 100.0100, L500.2500 ####[facility] [address] [place], [address] GAP 8 Normal 5-15 [facility] Comment on above: Performed By: #### L 100.0100, L500.2500 ####[facility] [address] [place], [address] GFR/1.73 sq M.predicted among non-blacks MDRD (S/P/Bld) [Vol rate/Area] 70 mL/min/{1.73_m2} Normal >60 [facility] Comment on above: Result Comment: Non- GFR Calc Performed By: #### L 100.0100, L500.2500 ####[facility] [address] [place], [address] Glucose [Mass/Vol] 154 mg/dL High 74-106 [facility] Comment on above: Result Comment: Fast ing Glucose result greater than or equal to 126 mg/dLsuggests DIABETES MELLITUS per A.D.A. criteria. Performed By: #### L 100.0100, L500.2500 ####[facility] [address] [place], [address] Potassium [Moles/Vol] 4.4 mmol/L Normal 3.5-5.1 [facility] Comment on above: Performed By: #### L 100.0100, L500.2500 ####[facility] [address] [place], [address] Sodium [Moles/Vol] 135 mmol/L Low 136-145 [facility] Comment on above: Performed By: #### L 100.0100, L500.2500 ####[facility] [address] [place], [address] Urea nitrogen [Mass/Vol] 34 mg/dL High 7-18 [facility] Comment on above: Performed By: #### L 100.0100, L500.2500 ####[facility] [address] [place], [address] Basophil percentageOrdered B y: Cuco Soler on 04-15-2024 Basophils/100 WBC (Bld) 0.1 % 0-1 [facility] CBC W/Diff, Automatedon - Absolute Lymph 0.77 X10 3/uL Low 0.83-4.51 [facility] Comment on above: Performed By: #### L 100.0100, L500.2500 ####[facility] [address] [place], [address] Absolute Neut 9.9 X10 3/uL High 2.0-7.7 [facility] Comment on above: Performed By: #### L 100.0100, L500.2500 ####[facility] [address] [place], [address] Basophils/100 WBC (Bld) 0.1 % Normal 0-1 [facility] Comment on above: Performed By: #### L 100.0100, L500.2500 ####[facility] [address] [place], [address] Eosinophils/100 WBC (Bld) 0.1 % Normal 0-5 [facility] Comment on above: Performed By: #### L 100.0100, L500.2500 ####[facility] [address] [place], [address] Erythrocyte distribution width (RBC) [Ratio] 19.6 % High 11.6-14.6 [facility] Comment on above: Performed By: #### L 100.0100, L500.2500 ####[facility] [address] [place], [address] Hematocrit (Bld) [Volume fraction] 28.9 % Low 40-54 [facility] Comment on above: Performed By: #### L 100.0100, L500.2500 ####[facility] [address] [place], [address] Hemoglobin (Bld) [Mass/Vol] 8.5 g/dL Low 13.0-16.5 [facility] Comment on above: Performed By: #### L 100.0100, L500.2500 ####[facility] [address] [place], [address] IG% 0.600 Normal 0.0-0.9 [facility] Comment on above: Result Comment: IG% - Immature Granulocytes (promyelocytes, myelocytes andmetamyelocytes) > 1% indicates that a LEFT SHIFT is Present. Performed By: #### L 100.0100, L500.2500 ####[facility] [address] [place], [address] Lymphocytes/100 WBC (Bld) 7.0 % Low 19-41 [facility] Comment on above: Performed By: #### L 100.0100, L500.2500 ####[facility] [address] [place], [address] MCH (RBC) [Entitic mass] 21.8 pg Low 27.0-32.0 [facility] Comment on above: Performed By: #### L 100.0100, L500.2500 ####[facility] [address] [place], [address] MCHC (RBC) [Mass/Vol] 29.4 g/dL Low 32-36 [facility] Comment on above: Performed By: #### L 100.0100, L500.2500 ####[facility] [address] [place], [address] MCV (RBC) [Entitic vol] 74.1 fL Low 80-94 [facility] Comment on above: Performed By: #### L 100.0100, L500.2500 ####[facility] [address] [place], [address] Monocytes/100 WBC (Bld) 2.4 % Normal 0-10 [facility] Comment on above: Performed By: #### L 100.0100, L500.2500 ####[facility] [address] [place], [address] Neutrophils/100 WBC (Bld) 89.8 % High 47-70 [facility] Comment on above: Performed By: #### L 100.0100, L500.2500 ####[facility] [address] [place], [address] Nucleated RBC (Bld) [#/Vol] 0 10*3/uL Normal 0-5 [facility] Comment on above: Performed By: #### L 100.0100, L500.2500 ####[facility] [address] [place], [address] Platelet mean volume (Bld) [Entitic vol] 9.8 fL Normal 6.2-12.0 [facility] Comment on above: Performed By: #### L 100.0100, L500.2500 ####[facility] [address] [place], [address] Platelets (Bld) [#/Vol] 341 10*3/uL Normal 150-450 [facility] Comment on above: Performed By: #### L 100.0100, L500.2500 ####[facility] [address] [place], [address] RBC (Bld) [#/Vol] 3.90 10*6/uL Low 4.6-6.2 [facility] Comment on above: Performed By: #### L 100.0100, L500.2500 ####[facility] [address] [place], [address] RDW SD 52.3 fl High 35.1-43.9 [facility] Comment on above: Performed By: #### L 100.0100, L500.2500 ####[facility] [address] [place], [address] WBC (Bld) [#/Vol] 11.0 10*3/uL Normal 4.4-11.0 [facility] Comment on above: Performed By: #### L 100.0100, L500.2500 ####[facility] [address] [place], [address] Carbon dioxide measurementOr dered By: Cuco Soler on 04-15-2024 CO2 [Moles/Vol] 24.0 mmol/L 21.0-32.0 [facility] Chloride measurementOrdered By: Cuco Soler on 04-15-2024 Chloride [Moles/Vol] 103 mmol/L 98-107 [facility] Discharge Instructionon 04-01 Discharge Instruction Normal [facility] Eosinophil percentageOrdered By: Cuco Soler on 04-15-2024 Eosinophils/100 WBC (Bld) 0.1 % 0-5 [facility] Erythrocyte distribution wid th ratioOrdered By: Cuco Soler on 04-15-2024 Erythrocyte distribution width (RBC) [Ratio] 19.6 % High 11.6-14.6 [facility] Erythrocyte distribution wid th standard deviationOrdered By: Cuco Soler on 04-15-2024 Erythrocyte distribution width (RBC) [Ratio] 52.3 fl High 35.1-43.9 [facility] Glomerular filtration rate ( GFR) estimationOrdered By: Cuco Soler on 04-15-2024 GFR/1.73 sq M.predicted among non-blacks MDRD (S/P/Bld) [Vol rate/Area] 70 mL/min/{1.73_m2} >60 [facility] Glucose measurementOrdered B y: Cuco Soler on 04-15-2024 Glucose [Mass/Vol] 154 mg/dL High 74-106 [facility] Hematocrit Auto (Bld) [Volum e fraction]Ordered By: Cuco Soler on 04-15-2024 Hematocrit (Bld) [Volume fraction] 28.9 % Low 40-54 [facility] Hemoglobin measurementOrdere d By: Cuco Soler on 04-15-2024 Hemoglobin (Bld) [Mass/Vol] 8.5 g/dL Low 13.0-16.5 [facility] Immature granulocytes/100 WB C Auto (Bld)Ordered By: Cuco Soler on 04-15-2024 Immature granulocytes/100 WBC (Bld) 0.600 % 0.0-0.9 [facility] MCV (mean corpuscular volume ) determinationOrdered By: Cuco Soler on 04-15-2024 MCV (RBC) [Entitic vol] 74.1 fL Low 80-94 [facility] Mean corpuscular hemoglobin (MCH) determinationOrdered By: Cuco Soler on 04-15-2024 MCH (RBC) [Entitic mass] 21.8 pg Low 27.0-32.0 [facility] Monocyte percentageOrdered B y: Cuco Soler on 04-15-2024 Monocytes/100 WBC (Bld) 2.4 % 0-10 [facility] Neutrophil percentageOrdered By: Cuco Soler on 04-15-2024 Neutrophils/100 WBC (Bld) 89.8 % High 47-70 [facility] Platelet countOrdered By: Joselito Soler on 04-15-2024 Platelets (Bld) [#/Vol] 341 10*3/uL 150-450 [facility] Potassium measurementOrdered By: Cuco Soler on 04-15-2024 Potassium [Moles/Vol] 4.4 mmol/L 3.5-5.1 [facility] RBC Auto (Bld) [#/Vol]Ordere d By: Cuco Soler on 04-15-2024 RBC (Bld) [#/Vol] 3.90 10*6/uL Low 4.6-6.2 [facility] Serum or plasma calcium grazyna urement (mass/volume)Ordered By: Cuco Soler on 04-15-2024 Calcium [Mass/Vol] 9.4 mg/dL 8.5-10.1 [facility] Serum or plasma creatinine m easurement (mass/volume)Ordered By: Cuco Soler on 04-15-2024 Creatinine [Mass/Vol] 1.14 mg/dL 0.70-1.30 [facility] Serum or plasma urea nitroge n measurement (mass/volume)Ordered By: Cuco Soler on 04-15-2024 Urea nitrogen [Mass/Vol] 34 mg/dL High 7-18 [facility] Sodium levelOrdered By: Caitie Soler on 04-15-2024 Sodium [Moles/Vol] 135 mmol/L Low 136-145 [facility] White blood cell (WBC) count Ordered By: Cuco Soler on 04-15-2024 WBC (Bld) [#/Vol] 11.0 10*3/uL 4.4-11.0 [facility] GPC IDon 04-14-2024 GPC ID Normal [facility] Comment on above: Performed By: #### M 200.1000, M100.636 ####[facility] [address] [place], [address] Basic Metabolic Profile (BMP )on 04-14-2024 BUN/CRE 20.1 RATIO High 10-20 [facility] Comment on above: Performed By: #### L 501.5200, L100.0100, L500.2500, L500.3400, L501.2300 ####[facility] [address] [place], [address] CA,Total 9.0 mg/dL Normal 8.5-10.1 [facility] Comment on above: Performed By: #### L 501.5200, L100.0100, L500.2500, L500.3400, L501.2300 ####[facility] [address] [place], [address] Chloride [Moles/Vol] 100 mmol/L Normal 98-107 [facility] Comment on above: Performed By: #### L 501.5200, L100.0100, L500.2500, L500.3400, L501.2300 ####[facility] [address] [place], [address] CO2 [Moles/Vol] 26.0 mmol/L Normal 21.0-32.0 [facility] Comment on above: Performed By: #### L 501.5200, L100.0100, L500.2500, L500.3400, L501.2300 ####[facility] [address] [place], [address] Creatinine [Mass/Vol] 1.49 mg/dL High 0.70-1.30 [facility] Comment on above: Result Comment: The validity of the calculated GFR GFRAA in patients over70 years has not been determined. Clinical correlation isessential. Performed By: #### L 501.5200, L100.0100, L500.2500, L500.3400, L501.2300 ####[facility] [address] [place], [address] ECRCL 73.51 ml/min Normal [facility] Comment on above: Performed By: #### L 501.5200, L100.0100, L500.2500, L500.3400, L501.2300 ####[facility] [address] [place], [address] EST GFR - AA 62 mL/min Normal >60 [facility] Comment on above: Result Comment: Afri can Angolan GFR Calc Performed By: #### L 501.5200, L100.0100, L500.2500, L500.3400, L501.2300 ####[facility] [address] [place], [address] GAP 6 Normal 5-15 [facility] Comment on above: Performed By: #### L 501.5200, L100.0100, L500.2500, L500.3400, L501.2300 ####[facility] [address] [place], [address] GFR/1.73 sq M.predicted among non-blacks MDRD (S/P/Bld) [Vol rate/Area] 51 mL/min/{1.73_m2} Low >60 [facility] Comment on above: Result Comment: Non- GFR Calc Performed By: #### L 501.5200, L100.0100, L500.2500, L500.3400, L501.2300 ####[facility] [address] [place], [address] Glucose [Mass/Vol] 272 mg/dL High 74-106 [facility] Comment on above: Result Comment: Gluc ose result greater than or equal to 200 mg/dLsuggests DIABETES MELLITUS per A.D.A. criteria. Performed By: #### L 501.5200, L100.0100, L500.2500, L500.3400, L501.2300 ####[facility] [address] [place], [address] Potassium [Moles/Vol] 4.0 mmol/L Normal 3.5-5.1 [facility] Comment on above: Performed By: #### L 501.5200, L100.0100, L500.2500, L500.3400, L501.2300 ####[facility] [address] [place], [address] Sodium [Moles/Vol] 132 mmol/L Low 136-145 [facility] Comment on above: Performed By: #### L 501.5200, L100.0100, L500.2500, L500.3400, L501.2300 ####[facility] [address] [place], [address] Urea nitrogen [Mass/Vol] 30 mg/dL High 7-18 [facility] Comment on above: Performed By: #### L 501.5200, L100.0100, L500.2500, L500.3400, L501.2300 ####[facility] [address] [place], [address] Bedside Glucoseon 04-14-2024 FINGERSTICK GLU 259 mg/dL High 74-106 [facility] Comment on above: Result Comment: ANI BRADFORD OF PATIENT CARE PER NURSING PROTOCOL Performed By: #### L 501.080 ####[facility] [address] [place], [address] Bilirubin directOrdered By: Cuco Soler on 04-14-2024 Bilirubin.direct [Mass/Vol] 0.20 mg/dL 0.00-0.30 [facility] Bilirubin, totalOrdered By: Cuco Soler on 04-14-2024 Bilirubin [Mass/Vol] 0.80 mg/dL 0.20-1.00 [facility] CBC W/Diff, Automatedon 04-01 Absolute Lymph 0.42 X10 3/uL Low 0.83-4.51 [facility] Comment on above: Performed By: #### L 501.5200, L100.0100, L500.2500, L500.3400, L501.2300 ####[facility] [address] [place], [address] Absolute Neut 7.9 X10 3/uL High 2.0-7.7 [facility] Comment on above: Performed By: #### L 501.5200, L100.0100, L500.2500, L500.3400, L501.2300 ####[facility] [address] [place], [address] Basophils/100 WBC (Bld) 0.2 % Normal 0-1 [facility] Comment on above: Performed By: #### L 501.5200, L100.0100, L500.2500, L500.3400, L501.2300 ####[facility] [address] [place], [address] Eosinophils/100 WBC (Bld) 0.0 % Normal 0-5 [facility] Comment on above: Performed By: #### L 501.5200, L100.0100, L500.2500, L500.3400, L501.2300 ####[facility] [address] [place], [address] Erythrocyte distribution width (RBC) [Ratio] 19.9 % High 11.6-14.6 [facility] Comment on above: Performed By: #### L 501.5200, L100.0100, L500.2500, L500.3400, L501.2300 ####[facility] [address] [place], [address] Hematocrit (Bld) [Volume fraction] 28.7 % Low 40-54 [facility] Comment on above: Performed By: #### L 501.5200, L100.0100, L500.2500, L500.3400, L501.2300 ####[facility] [address] [place], [address] Hemoglobin (Bld) [Mass/Vol] 8.4 g/dL Low 13.0-16.5 [facility] Comment on above: Performed By: #### L 501.5200, L100.0100, L500.2500, L500.3400, L501.2300 ####[facility] [address] [place], [address] IG% 0.500 Normal 0.0-0.9 [facility] Comment on above: Result Comment: IG% - Immature Granulocytes (promyelocytes, myelocytes andmetamyelocytes) > 1% indicates that a LEFT SHIFT is Present. Performed By: #### L 501.5200, L100.0100, L500.2500, L500.3400, L501.2300 ####[facility] [address] [place], [address] Lymphocytes/100 WBC (Bld) 4.9 % Low 19-41 [facility] Comment on above: Performed By: #### L 501.5200, L100.0100, L500.2500, L500.3400, L501.2300 ####[facility] [address] [place], [address] MCH (RBC) [Entitic mass] 21.8 pg Low 27.0-32.0 [facility] Comment on above: Performed By: #### L 501.5200, L100.0100, L500.2500, L500.3400, L501.2300 ####[facility] [address] [place], [address] MCHC (RBC) [Mass/Vol] 29.3 g/dL Low 32-36 [facility] Comment on above: Performed By: #### L 501.5200, L100.0100, L500.2500, L500.3400, L501.2300 ####[facility] [address] [place], [address] MCV (RBC) [Entitic vol] 74.4 fL Low 80-94 [facility] Comment on above: Performed By: #### L 501.5200, L100.0100, L500.2500, L500.3400, L501.2300 ####[facility] [address] [place], [address] Monocytes/100 WBC (Bld) 1.9 % Normal 0-10 [facility] Comment on above: Performed By: #### L 501.5200, L100.0100, L500.2500, L500.3400, L501.2300 ####[facility] [address] [place], [address] Neutrophils/100 WBC (Bld) 92.5 % High 47-70 [facility] Comment on above: Performed By: #### L 501.5200, L100.0100, L500.2500, L500.3400, L501.2300 ####[facility] [address] [place], [address] Nucleated RBC (Bld) [#/Vol] 0.2 10*3/uL Normal 0-5 [facility] Comment on above: Performed By: #### L 501.5200, L100.0100, L500.2500, L500.3400, L501.2300 ####[facility] [address] [place], [address] Platelet mean volume (Bld) [Entitic vol] 10.0 fL Normal 6.2-12.0 [facility] Comment on above: Performed By: #### L 501.5200, L100.0100, L500.2500, L500.3400, L501.2300 ####[facility] [address] [place], [address] Platelets (Bld) [#/Vol] 322 10*3/uL Normal 150-450 [facility] Comment on above: Performed By: #### L 501.5200, L100.0100, L500.2500, L500.3400, L501.2300 ####[facility] [address] [place], [address] RBC (Bld) [#/Vol] 3.86 10*6/uL Low 4.6-6.2 [facility] Comment on above: Performed By: #### L 501.5200, L100.0100, L500.2500, L500.3400, L501.2300 ####[facility] [address] [place], [address] RDW SD 53.1 fl High 35.1-43.9 [facility] Comment on above: Performed By: #### L 501.5200, L100.0100, L500.2500, L500.3400, L501.2300 ####[facility] [address] [place], [address] WBC (Bld) [#/Vol] 8.6 10*3/uL Normal 4.4-11.0 [facility] Comment on above: Performed By: #### L 501.5200, L100.0100, L500.2500, L500.3400, L501.2300 ####[facility] [address] [place], [address] Consultation - Intensiviston 04-14-2024 Consultation - Gas Main Fitter Normal [facility] Echo, Limited Studyon 2024 Echo, Limited Study Normal [facility] Glucose measurement at [facility] deOrdered By: Cuco Soler on 04-14-2024 Glucose [Mass/Vol] 259 mg/dL High 74-106 [facility] Liver Profileon 04-14-2024 Albumin [Mass/Vol] 2.7 g/dL Low 3.2-5.0 [facility] Comment on above: Performed By: #### L 501.5200, L100.0100, L500.2500, L500.3400, L501.2300 ####[facility] [address] [place], [address] ALK P 77 U/L Normal 45-117 [facility] Comment on above: Performed By: #### L 501.5200, L100.0100, L500.2500, L500.3400, L501.2300 ####[facility] [address] [place], [address] ALT [Catalytic activity/Vol] 19 U/L Normal 16-61 [facility] Comment on above: Performed By: #### L 501.5200, L100.0100, L500.2500, L500.3400, L501.2300 ####[facility] [address] [place], [address] AST [Catalytic activity/Vol] 16 U/L Normal 15-37 [facility] Comment on above: Performed By: #### L 501.5200, L100.0100, L500.2500, L500.3400, L501.2300 ####[facility] [address] [place], [address] Bilirubin [Mass/Vol] 0.80 mg/dL Normal 0.20-1.00 [facility] Comment on above: Result Comment: For patients on eltrombopag therapy, use of Dimension Lennon TBIL is not recommended. Performed By: #### L 501.5200, L100.0100, L500.2500, L500.3400, L501.2300 ####[facility] [address] [place], [address] Bilirubin.direct [Mass/Vol] 0.20 mg/dL Normal 0.00-0.30 [facility] Comment on above: Performed By: #### L 501.5200, L100.0100, L500.2500, L500.3400, L501.2300 ####[facility] [address] [place], [address] Globulin (S) [Mass/Vol] 5.6 g/dL High 2.2-4.2 [facility] Comment on above: Performed By: #### L 501.5200, L100.0100, L500.2500, L500.3400, L501.2300 ####[facility] [address] [place], [address] T PROT 8.3 g/dL High 6.4-8.2 [facility] Comment on above: Performed By: #### L 501.5200, L100.0100, L500.2500, L500.3400, L501.2300 ####[facility] [address] [place], [address] M8200.1000on 04-14-2024 M8200.1000 Normal Reference Ran ge = Negative MRSA DNA Nose Ql FLORES+probe GeneXpert Instrument, PCR method MRSA PCR MRSA NEGATIVE Normal [facility] Comment on above: Performed By: #### M 8200.1000, M300.4600 ####[facility] [address] [place], [address] Magnesiumon 04-14-2024 Magnesium [Mass/Vol] 2.5 mg/dL Normal 1.6-2.6 [facility] Comment on above: Performed By: #### L 501.5200, L100.0100, L500.2500, L500.3400, L501.2300 ####[facility] [address] [facility] [place], [place], [id number] Magnesium measurementOrdered By: Cuco Soler on 04-14-2024 Magnesium [Mass/Vol] 2.5 mg/dL 1.6-2.6 [facility] Nasal methicillin resistant Staphylococcus aureus (MRSA) DNA detection by PCROrdered By: Cuco Soler on 04-14-2024 MRSA DNA FLORES+probe Ql (Nose) [facility] No Panel InformationOrdered By: Cucojohnathon Soler on 04-14-2024 16 U/L 15-37 [facility] Phosphoruson 04-14-2024 Phosphate [Mass/Vol] 4.4 mg/dL Normal 2.5-4.9 [facility] Comment on above: Performed By: #### L 501.5200, L100.0100, L500.2500, L500.3400, L501.2300 ####[facility] [address] [facility]. [place], [place], [id number] Procalcitoninon 04-14-2024 Procalcitonin 0.18 ng/mL High 0.00-0.09 [facility] Comment on above: Result Comment: A pr [...] are obtained. Performed By: #### L 509.7000 ####[facility] [address] [facility], [place], [address] Serum globulin measurementOr dered By: Cuco Soler on 04-14-2024 Globulin (S) [Mass/Vol] 5.6 g/dL High 2.2-4.2 [facility] Serum or plasma alanine briscoe otransferase (ALT) measurementOrdered By: Cuco Soler on 04-14-2024 ALT [Catalytic activity/Vol] 19 U/L 16-61 [facility] Serum or plasma albumin grazyna urement (mass/volume)Ordered By: Cuco Soler on 04-14-2024 Albumin [Mass/Vol] 2.7 g/dL Low 3.2-5.0 [facility] Serum or plasma alkaline benjamin sphatase measurementOrdered By: Cuco Soler on 04-14-2024 ALP [Catalytic activity/Vol] 77 U/L 45-117 [facility] Serum procalcitonin measurem entOrdered By: Fran Rodriguez on 04-14-2024 Procalcitonin [Mass/Vol] 0.18 ng/mL High 0.00-0.09 [facility] Strep pneumoniae Antig(UR,CS F)on 04-14-2024 STPAG Normal [facility] Comment on above: Performed By: #### M 8200.1000, M300.4600 ####[facility] [address] [place], [place], [id number] Total proteinOrdered By: Wilder Soler on 04-14-2024 Protein [Mass/Vol] 8.3 g/dL High 6.4-8.2 [facility] 6 Minute Walk Teston 025 6 Minute Walk Test Normal [facility] Basic Metabolic Profile (BMP )on 04-13-2024 BUN/CRE 17.1 RATIO Normal 10-20 [facility] Comment on above: Performed By: #### L 501.5200, L500.2500, L501.2300, L100.0100 ####[facility] [id number] [place], [place], [id number] [place],Total 8.9 mg/dL Normal 8.5-10.1 [facility] Comment on above: Performed By: #### L 501.5200, L500.2500, L501.2300, L100.0100 ####[facility] [id number] [place], [address] Chloride [Moles/Vol] 101 mmol/L Normal 98-107 [facility] Comment on above: Performed By: #### L 501.5200, L500.2500, L501.2300, L100.0100 ####[facility] [id number] [place], [address] CO2 [Moles/Vol] 27.0 mmol/L Normal 21.0-32.0 [facility] Comment on above: Performed By: #### L 501.5200, L500.2500, L501.2300, L100.0100 ####[facility] [address] [place], [address] Creatinine [Mass/Vol] 1.17 mg/dL Normal 0.70-1.30 [facility] Comment on above: Result Comment: The validity of the calculated GFR GFRAA in patients over70 years has not been determined. Clinical correlation isessential. Performed By: #### L 501.5200, L500.2500, L501.2300, L100.0100 ####[facility] [address] [place], [address] ECRCL 93.62 ml/min Normal [facility] Comment on above: Performed By: #### L 501.5200, L500.2500, L501.2300, L100.0100 ####[facility] [address] [place], [address] EST GFR - AA 82 mL/min Normal >60 [facility] Comment on above: Result Comment: Afri can Angolan GFR Calc Performed By: #### L 501.5200, L500.2500, L501.2300, L100.0100 ####[facility] [address] [place], [address] GAP 6 Normal 5-15 [facility] Comment on above: Performed By: #### L 501.5200, L500.2500, L501.2300, L100.0100 ####[facility] [address] [place], [address] GFR/1.73 sq M.predicted among non-blacks MDRD (S/P/Bld) [Vol rate/Area] 67 mL/min/{1.73_m2} Normal >60 [facility] Comment on above: Result Comment: Non- GFR Calc Performed By: #### L 501.5200, L500.2500, L501.2300, L100.0100 ####[facility] [address] [place], [address] Glucose [Mass/Vol] 193 mg/dL High 74-106 [facility] Comment on above: Result Comment: Fast ing Glucose result greater than or equal to 126 mg/dLsuggests DIABETES MELLITUS per A.D.A. criteria. Performed By: #### L 501.5200, L500.2500, L501.2300, L100.0100 ####[facility] [address] [place], [address] Potassium [Moles/Vol] 3.6 mmol/L Normal 3.5-5.1 [facility] Comment on above: Performed By: #### L 501.5200, L500.2500, L501.2300, L100.0100 ####[facility] [address] [place], [address] Sodium [Moles/Vol] 134 mmol/L Low 136-145 [facility] Comment on above: Performed By: #### L 501.5200, L500.2500, L501.2300, L100.0100 ####[facility] [address] [place], [address] Urea nitrogen [Mass/Vol] 20 mg/dL High 7-18 [facility] Comment on above: Performed By: #### L 501.5200, L500.2500, L501.2300, L100.0100 ####[facility] [address] [place], [address] Bedside Glucoseon 04-13-2024 FINGERSTICK GLU 190 mg/dL High 74-106 [facility] Comment on above: Result Comment: ANI BRADFORD OF PATIENT CARE PER NURSING PROTOCOL Performed By: #### L 501.080 ####[facility] [address] [place], [address] CBC W/Diff, Automatedon 04-01 Absolute Lymph 1.53 X10 3/uL Normal 0.83-4.51 [facility] Comment on above: Performed By: #### L 501.5200, L500.2500, L501.2300, L100.0100 ####[facility] [address] [place], [address] Absolute Neut 7.3 X10 3/uL Normal 2.0-7.7 [facility] Comment on above: Performed By: #### L 501.5200, L500.2500, L501.2300, L100.0100 ####[facility] [address] [place], [address] Basophils/100 WBC (Bld) 0.5 % Normal 0-1 [facility] Comment on above: Performed By: #### L 501.5200, L500.2500, L501.2300, L100.0100 ####[facility] [address] [place], [address] Eosinophils/100 WBC (Bld) 3.7 % Normal 0-5 [facility] Comment on above: Performed By: #### L 501.5200, L500.2500, L501.2300, L100.0100 ####[facility] [address] [place], [address] Erythrocyte distribution width (RBC) [Ratio] 19.9 % High 11.6-14.6 [facility] Comment on above: Performed By: #### L 501.5200, L500.2500, L501.2300, L100.0100 ####[facility] [address] [place], [address] Hematocrit (Bld) [Volume fraction] 26.7 % Low 40-54 [facility] Comment on above: Performed By: #### L 501.5200, L500.2500, L501.2300, L100.0100 ####[facility] [address] [place], [address] Hemoglobin (Bld) [Mass/Vol] 7.7 g/dL Low 13.0-16.5 [facility] Comment on above: Performed By: #### L 501.5200, L500.2500, L501.2300, L100.0100 ####[facility] [address] [place], [address] IG% 0.300 Normal 0.0-0.9 [facility] Comment on above: Result Comment: IG% - Immature Granulocytes (promyelocytes, myelocytes andmetamyelocytes) > 1% indicates that a LEFT SHIFT is Present. Performed By: #### L 501.5200, L500.2500, L501.2300, L100.0100 ####[facility] [address] [place], [address] Lymphocytes/100 WBC (Bld) 14.9 % Low 19-41 [facility] Comment on above: Performed By: #### L 501.5200, L500.2500, L501.2300, L100.0100 ####[facility] [address] [place], [address] MCH (RBC) [Entitic mass] 21.6 pg Low 27.0-32.0 [facility] Comment on above: Performed By: #### L 501.5200, L500.2500, L501.2300, L100.0100 ####[facility] [address] [place], [address] MCHC (RBC) [Mass/Vol] 28.8 g/dL Low 32-36 [facility] Comment on above: Performed By: #### L 501.5200, L500.2500, L501.2300, L100.0100 ####[facility] [address] [place], [address] MCV (RBC) [Entitic vol] 74.8 fL Low 80-94 [facility] Comment on above: Performed By: #### L 501.5200, L500.2500, L501.2300, L100.0100 ####[facility] [address] [place], [address] Monocytes/100 WBC (Bld) 9.8 % Normal 0-10 [facility] Comment on above: Performed By: #### L 501.5200, L500.2500, L501.2300, L100.0100 ####[facility] [address] [place], [address] Neutrophils/100 WBC (Bld) 70.8 % High 47-70 [facility] Comment on above: Performed By: #### L 501.5200, L500.2500, L501.2300, L100.0100 ####[facility] [address] [place], [address] Nucleated RBC (Bld) [#/Vol] 0 10*3/uL Normal 0-5 [facility] Comment on above: Performed By: #### L 501.5200, L500.2500, L501.2300, L100.0100 ####[facility] [address] [place], [address] Platelet mean volume (Bld) [Entitic vol] 9.6 fL Normal 6.2-12.0 [facility] Comment on above: Performed By: #### L 501.5200, L500.2500, L501.2300, L100.0100 ####[facility] [address] [place], [address] Platelets (Bld) [#/Vol] 289 10*3/uL Normal 150-450 [facility] Comment on above: Performed By: #### L 501.5200, L500.2500, L501.2300, L100.0100 ####[facility] [address] [place], [address] RBC (Bld) [#/Vol] 3.57 10*6/uL Low 4.6-6.2 [facility] Comment on above: Performed By: #### L 501.5200, L500.2500, L501.2300, L100.0100 ####[facility] [address] [place], [address] RDW SD 53.8 fl High 35.1-43.9 [facility] Comment on above: Performed By: #### L 501.5200, L500.2500, L501.2300, L100.0100 ####[facility] [address] [place], [address] WBC (Bld) [#/Vol] 10.3 10*3/uL Normal 4.4-11.0 [facility] Comment on above: Performed By: #### L 501.5200, L500.2500, L501.2300, L100.0100 ####[facility] [address] [place], [address] Chest without Contraston Chest without Contrast Normal [facility] Legionella Antigen Urineon 0 04-13-2024 LEGU Normal [facility] Comment on above: Performed By: #### M 300.4500 ####[facility] [address] [place], [address] Magnesiumon 04-13-2024 Magnesium [Mass/Vol] 2.3 mg/dL Normal 1.6-2.6 [facility] Comment on above: Performed By: #### L 501.5200, L500.2500, L501.2300, L100.0100 ####[facility] [address] [place], [address] Phosphoruson 04-13-2024 Phosphate [Mass/Vol] 4.4 mg/dL Normal 2.5-4.9 [facility] Comment on above: Performed By: #### L 501.5200, L500.2500, L501.2300, L100.0100 ####[facility] [address] [place], [address] RESPIRATORY PANEL MOLECULARo n 04-13-2024 RP PANEL Normal [facility] Comment on above: Performed By: #### M 100.638 ####[facility] [address] [place], [address] Respiratory pathogens detect ion panel by molecular detection methodOrdered By: Cuco Soler on 04-13-2024 Respiratory pathogens DNA and RNA panel FLORES+probe (Resp) [facility] Urine Legionella pneumophila antigen detectionOrdered By: Cuco Soler on 04-13-2024 L. pneumophila Ag Ql (U) [facility] 12 Lead EKGon 04-12-2024 12 Lead EKG Normal [facility] BNP (brain natriuretic pepti de measurement)Ordered By: Luli Alex on 04-12-2024 Natriuretic peptide B (Bld) [Mass/Vol] 124.0 pg/mL High 0-100 [facility] BNP,B-Type NATRIURETIC PEPTI Sindy 04-12-2024 Natriuretic peptide B (Bld) [Mass/Vol] 124.0 pg/mL High 0-100 [facility] Comment on above: Performed By: #### L 503.6620, L500.2500, L100.0100 ####[facility] [address] [place], [address] Basic Metabolic Profile (BMP )on 04-12-2024 BUN/CRE 16.5 RATIO Normal 10-20 [facility] Comment on above: Order Comment: REDRA W. PREVIOUS SPECIMEN REJECTED DUE TOHEMOLYSIS. 04/12/24 1220 Luiz Sandoval.1 Performed By: #### L 500.2500, L501.4020 ####[facility] [address] [place], [address] CA,Total 9.4 mg/dL Normal 8.5-10.1 [facility] Comment on above: Order Comment: REDRA W. PREVIOUS SPECIMEN REJECTED DUE TOHEMOLYSIS. 04/12/24 1220 Luiz Sandoval.1 Performed By: #### L 500.2500, L501.4020 ####[facility] [address] [place], [address] Chloride [Moles/Vol] 105 mmol/L Normal 98-107 [facility] Comment on above: Order Comment: REDRA W. PREVIOUS SPECIMEN REJECTED DUE TOHEMOLYSIS. 04/12/24 1220 Liuz Sandoval.1 Performed By: #### L 500.2500, L501.4020 ####[facility] [address] [place], [address] CO2 [Moles/Vol] 26.0 mmol/L Normal 21.0-32.0 [facility] Comment on above: Order Comment: REDRA W. PREVIOUS SPECIMEN REJECTED DUE TOHEMOLYSIS. 04/12/24 1220 Luiz Sandoval.1 Performed By: #### L 500.2500, L501.4020 ####[facility] [address] [place], [address] Creatinine [Mass/Vol] 0.97 mg/dL Normal 0.70-1.30 [facility] Comment on above: Order Comment: REDRA W. PREVIOUS SPECIMEN REJECTED DUE TOHEMOLYSIS. 04/12/24 1220 Luiz Sandoval.1 Result Comment: The validity of the calculated GFR GFRAA in patients over70 years has not been determined. Clinical correlation isessential. Performed By: #### L 500.2500, L501.4020 ####[facility] [address] [place], [address] EST GFR - AA 101 mL/min Normal >60 [facility] Comment on above: Order Comment: RED W. PREVIOUS SPECIMEN REJECTED DUE TOHEMOLYSIS. 04/12/24 1220 Luiz Sandoval.1 Result Comment: Afri can Angolan GFR Calc Performed By: #### L 500.2500, L501.4020 ####[facility] [address] [place], [address] GAP 3 Low 5-15 [facility] Comment on above: Order Comment: NEETU Giles. PREVIOUS SPECIMEN REJECTED DUE TOHEMOLYSIS. 04/12/24 1220 Luiz Sandoval.1 Performed By: #### L 500.2500, L501.4020 ####[facility] [address] [place], [address] GFR/1.73 sq M.predicted among non-blacks MDRD (S/P/Bld) [Vol rate/Area] 84 mL/min/{1.73_m2} Normal >60 [facility] Comment on above: Order Comment: NEETU W. PREVIOUS SPECIMEN REJECTED DUE TOHEMOLYSIS. 04/12/24 1220 Luiz Sandoval.1 Result Comment: Non- GFR Calc Performed By: #### L 500.2500, L501.4020 ####[facility] [address] [place], [address] Glucose [Mass/Vol] 124 mg/dL High 74-106 [facility] Comment on above: Order Comment: NEETU W. PREVIOUS SPECIMEN REJECTED DUE TOHEMOLYSIS. 04/12/24 1220 Luiz Sandoval.1 Result Comment: Fast ing Glucose result from 100 to 125 mg/dLsuggests IMPAIRED HOMEOSTASIS per A.D.A. criteria. Performed By: #### L 500.2500, L501.4020 ####[facility] [address] [place], [address] Potassium [Moles/Vol] 3.7 mmol/L Normal 3.5-5.1 [facility] Comment on above: Order Comment: REDRA W. PREVIOUS SPECIMEN REJECTED DUE TOHEMOLYSIS. 04/12/24 1220 Luiz Sandoval.1 Performed By: #### L 500.2500, L501.4020 ####[facility] [address] [place], [address] Sodium [Moles/Vol] 134 mmol/L Low 136-145 [facility] Comment on above: Order Comment: REDRA W. PREVIOUS SPECIMEN REJECTED DUE TOHEMOLYSIS. 04/12/24 1220 Luiz Sandoval.1 Performed By: #### L 500.2500, L501.4020 ####[facility] [address] [place], [address] Urea nitrogen [Mass/Vol] 16 mg/dL Normal 7-18 [facility] Comment on above: Order Comment: REDRA W. PREVIOUS SPECIMEN REJECTED DUE TOHEMOLYSIS. 04/12/24 1220 Luiz Sandoval.1 Performed By: #### L 500.2500, L501.4020 ####[facility] [address] [place], [address] BUN Normal 7-18 [facility] Comment on above: Order Comment: 'TROP ' Serial specimen #1, #2 or #3: 1 Result Comment: This specimen has been REJECTED due to Laboratory criteria:Hemolyzed.PORSCHE has been notified of need of recollection.04/12/24 1218 Luiz Sandoval Performed By: #### L 503.6620, L500.2500, L100.0100 ####[facility] [address] [place], [address] BUN/CRE Normal 10-20 [facility] Comment on above: Order Comment: 'TROP ' Serial specimen #1, #2 or #3: 1 Result Comment: This specimen has been REJECTED due to Laboratory criteria:Hemolyzed.PORSCHE has been notified of need of recollection.04/12/24 1218 Luiz Sandoval Performed By: #### L 503.6620, L500.2500, L100.0100 ####[facility] [address] [place], [address] CA,Total Normal 8.5-10.1 [facility] Comment on above: Order Comment: 'TROP ' Serial specimen #1, #2 or #3: 1 Result Comment: This specimen has been REJECTED due to Laboratory criteria:Hemolyzed.ELOISAE has been notified of need of recollection.04/12/24 1218 Luiz Sandoval Performed By: #### L 503.6620, L500.2500, L100.0100 ####[facility] [address] [place], [address] CL Normal 98-107 [facility] Comment on above: Order Comment: 'TROP ' Serial specimen #1, #2 or #3: 1 Result Comment: This specimen has been REJECTED due to Laboratory criteria:Hemolyzed.ELOISAE has been notified of need of recollection.04/12/248 Luiz Sandoval Performed By: #### L 503.6620, L500.2500, L100.0100 ####[facility] [address] [place], [address] CO2 Normal 21.0-32.0 [facility] Comment on above: Order Comment: 'TROP ' Serial specimen #1, #2 or #3: 1 Result Comment: This specimen has been REJECTED due to Laboratory criteria:Hemolyzed.ELOISAE has been notified of need of recollection.04/12/24 1218 Luiz Sandoval Performed By: #### L 503.6620, L500.2500, L100.0100 ####[facility] [address] [place], [address] CREAT,SERUM Normal 0.70-1.30 [facility] Comment on above: Order Comment: 'TROP ' Serial specimen #1, #2 or #3: 1 Result Comment: This specimen has been REJECTED due to Laboratory criteria:Hemolyzed.LORILIE has been notified of need of recollection.04/12/24 1218 Luiz Sandoval Performed By: #### L 503.6620, L500.2500, L100.0100 ####[facility] [address] [place], [address] EST GFR Normal >60 [facility] Comment on above: Order Comment: 'TROP ' Serial specimen #1, #2 or #3: 1 Result Comment: This specimen has been REJECTED due to Laboratory criteria:Hemolyzed.LORILIE has been notified of need of recollection.04/12/24 1218 Luiz Sandoval Performed By: #### L 503.6620, L500.2500, L100.0100 ####[facility] [address] [place], [address] EST GFR - AA Normal >60 [facility] Comment on above: Order Comment: 'TROP ' Serial specimen #1, #2 or #3: 1 Result Comment: This specimen has been REJECTED due to Laboratory criteria:Hemolyzed.LORILIE has been notified of need of recollection.04/12/24 1218 Luiz Sandoval Performed By: #### L 503.6620, L500.2500, L100.0100 ####[facility] [address] [place], [address] GAP Normal 5-15 [facility] Comment on above: Order Comment: 'TROP ' Serial specimen #1, #2 or #3: 1 Result Comment: This specimen has been REJECTED due to Laboratory criteria:Hemolyzed.LORILIE has been notified of need of recollection.04/12/24 1218 Luzi Sandoval Performed By: #### L 503.6620, L500.2500, L100.0100 ####[facility] [address] [place], [address] GLU Normal 74-106 [facility] Comment on above: Order Comment: 'TROP ' Serial specimen #1, #2 or #3: 1 Result Comment: This specimen has been REJECTED due to Laboratory criteria:Hemolyzed.LORILIE has been notified of need of recollection.04/12/24 1218 Luiz Sandoval Performed By: #### L 503.6620, L500.2500, L100.0100 ####[facility] [address] [place], [address] Potassium Normal 3.5-5.1 [facility] Comment on above: Order Comment: 'TROP ' Serial specimen #1, #2 or #3: 1 Result Comment: This specimen has been REJECTED due to Laboratory criteria:Hemolyzed.LORILIE has been notified of need of recollection.04/12/24 1218 Luiz Sandoval Performed By: #### L 503.6620, L500.2500, L100.0100 ####[facility] [address] [place], [address] Basic Metabolic Profile (BMP) Normal 136-145 [facility] Comment on above: Order Comment: 'TROP ' Serial specimen #1, #2 or #3: 1 Result Comment: This specimen has been REJECTED due to Laboratory criteria:Hemolyzed.LORILIE has been notified of need of recollection.04/12/24 1218 Luiz Sandoval Performed By: #### L 503.6620, L500.2500, L100.0100 ####[facility] [address] [place], [address] Bedside Glucoseon 04-12-2024 FINGERSTICK GLU 161 mg/dL High 74-106 [facility] Comment on above: Result Comment: ANI BRADFORD OF PATIENT CARE PER NURSING PROTOCOL Performed By: #### L 501.080 ####[facility] [address] [place], [address] FINGERSTICK GLU 159 mg/dL High 74-106 [facility] Comment on above: Result Comment: ANI BRADFORD OF PATIENT CARE PER NURSING PROTOCOL Performed By: #### L 501.080 ####[facility] [address] [place], [address] Blood cultureOrdered By: Katherin Alex on 04-12-2024 Bacteria identified Cx Nom (Bld) No growth in 5 days. [facility] Bacteria identified Cx Nom (Bld) Presumptive Micrococcus spp. Abnormal [facility] CBC W/Diff, Automatedon 04-01 Absolute Lymph 0.90 X10 3/uL Normal 0.83-4.51 [facility] Comment on above: Performed By: #### L 100.0100 ####[facility] [address] [place], [address] Absolute Neut 9.6 X10 3/uL High 2.0-7.7 [facility] Comment on above: Performed By: #### L 100.0100 ####[facility] [address] [place], [address] Basophils/100 WBC (Bld) 0.3 % Normal 0-1 [facility] Comment on above: Performed By: #### L 100.0100 ####[facility] [address] [place], [address] Eosinophils/100 WBC (Bld) 2.1 % Normal 0-5 [facility] Comment on above: Performed By: #### L 100.0100 ####[facility] [address] [place], [address] Erythrocyte distribution width (RBC) [Ratio] 20.1 % High 11.6-14.6 [facility] Comment on above: Performed By: #### L 100.0100 ####[facility] [address] [place], [address] Hematocrit (Bld) [Volume fraction] 28.3 % Low 40-54 [facility] Comment on above: Performed By: #### L 100.0100 ####[facility] [address] [place], [address] Hemoglobin (Bld) [Mass/Vol] 8.2 g/dL Low 13.0-16.5 [facility] Comment on above: Performed By: #### L 100.0100 ####[facility] [address] [place], [address] IG% 0.400 Normal 0.0-0.9 [facility] Comment on above: Result Comment: IG% - Immature Granulocytes (promyelocytes, myelocytes andmetamyelocytes) > 1% indicates that a LEFT SHIFT is Present. Performed By: #### L 100.0100 ####[facility] [address] [place], [address] Lymphocytes/100 WBC (Bld) 7.5 % Low 19-41 [facility] Comment on above: Performed By: #### L 100.0100 ####[facility] [address] [place], [address] MCH (RBC) [Entitic mass] 21.7 pg Low 27.0-32.0 [facility] Comment on above: Performed By: #### L 100.0100 ####[facility] [address] [place], [address] MCHC (RBC) [Mass/Vol] 29.0 g/dL Low 32-36 [facility] Comment on above: Performed By: #### L 100.0100 ####[facility] [address] [place], [address] MCV (RBC) [Entitic vol] 74.9 fL Low 80-94 [facility] Comment on above: Performed By: #### L 100.0100 ####[facility] [address] [place], [address] Monocytes/100 WBC (Bld) 9.4 % Normal 0-10 [facility] Comment on above: Performed By: #### L 100.0100 ####[facility] [address] [place], [address] Neutrophils/100 WBC (Bld) 80.3 % High 47-70 [facility] Comment on above: Performed By: #### L 100.0100 ####[facility] [address] [place], [address] Nucleated RBC (Bld) [#/Vol] 0 10*3/uL Normal 0-5 [facility] Comment on above: Performed By: #### L 100.0100 ####[facility] [address] [place], [address] Platelet mean volume (Bld) [Entitic vol] 9.6 fL Normal 6.2-12.0 [facility] Comment on above: Performed By: #### L 100.0100 ####[facility] [address] [place], [address] Platelets (Bld) [#/Vol] 282 10*3/uL Normal 150-450 [facility] Comment on above: Performed By: #### L 100.0100 ####[facility] [address] [place], [address] RBC (Bld) [#/Vol] 3.78 10*6/uL Low 4.6-6.2 [facility] Comment on above: Performed By: #### L 100.0100 ####[facility] [address] [place], [address] RDW SD 54.1 fl High 35.1-43.9 [facility] Comment on above: Performed By: #### L 100.0100 ####[facility] [address] [place], [address] WBC (Bld) [#/Vol] 12.0 10*3/uL High 4.4-11.0 [facility] Comment on above: Performed By: #### L 100.0100 ####[facility] [address] [place], [address] Absolute Lymph 0.90 X10 3/uL Normal 0.83-4.51 [facility] Comment on above: Performed By: #### L 503.6620, L500.2500, L100.0100 ####[facility] [address] [place], [address] Absolute Neut 9.9 X10 3/uL High 2.0-7.7 [facility] Comment on above: Performed By: #### L 503.6620, L500.2500, L100.0100 ####[facility] [address] [place], [address] Basophils/100 WBC (Bld) 0.4 % Normal 0-1 [facility] Comment on above: Performed By: #### L 503.6620, L500.2500, L100.0100 ####[facility] [address] [place], [address] Eosinophils/100 WBC (Bld) 2.3 % Normal 0-5 [facility] Comment on above: Performed By: #### L 503.6620, L500.2500, L100.0100 ####[facility] [address] [place], [address] Erythrocyte distribution width (RBC) [Ratio] 19.9 % High 11.6-14.6 [facility] Comment on above: Performed By: #### L 503.6620, L500.2500, L100.0100 ####[facility] [address] [place], [address] Hematocrit (Bld) [Volume fraction] 27.8 % Low 40-54 [facility] Comment on above: Performed By: #### L 503.6620, L500.2500, L100.0100 ####[facility] [address] [place], [address] Hemoglobin (Bld) [Mass/Vol] 8.2 g/dL Low 13.0-16.5 [facility] Comment on above: Performed By: #### L 503.6620, L500.2500, L100.0100 ####[facility] [address] [place], [address] IG% 0.400 Normal 0.0-0.9 [facility] Comment on above: Result Comment: IG% - Immature Granulocytes (promyelocytes, myelocytes andmetamyelocytes) > 1% indicates that a LEFT SHIFT is Present. Performed By: #### L 503.6620, L500.2500, L100.0100 ####[facility] [address] [place], [address] Lymphocytes/100 WBC (Bld) 7.4 % Low 19-41 [facility] Comment on above: Performed By: #### L 503.6620, L500.2500, L100.0100 ####[facility] [address] [place], [address] MCH (RBC) [Entitic mass] 22.1 pg Low 27.0-32.0 [facility] Comment on above: Performed By: #### L 503.6620, L500.2500, L100.0100 ####[facility] [address] [place], [address] MCHC (RBC) [Mass/Vol] 29.5 g/dL Low 32-36 [facility] Comment on above: Performed By: #### L 503.6620, L500.2500, L100.0100 ####[facility] [address] [place], [address] MCV (RBC) [Entitic vol] 74.9 fL Low 80-94 [facility] Comment on above: Performed By: #### L 503.6620, L500.2500, L100.0100 ####[facility] [address] [place], [address] Monocytes/100 WBC (Bld) 8.5 % Normal 0-10 [facility] Comment on above: Performed By: #### L 503.6620, L500.2500, L100.0100 ####[facility] [address] [place], [address] Neutrophils/100 WBC (Bld) 81.0 % High 47-70 [facility] Comment on above: Performed By: #### L 503.6620, L500.2500, L100.0100 ####[facility] [address] [place], [address] Nucleated RBC (Bld) [#/Vol] 0 10*3/uL Normal 0-5 [facility] Comment on above: Performed By: #### L 503.6620, L500.2500, L100.0100 ####[facility] [address] [place], [address] Platelet mean volume (Bld) [Entitic vol] 10.5 fL Normal 6.2-12.0 [facility] Comment on above: Performed By: #### L 503.6620, L500.2500, L100.0100 ####[facility] [address] [place], [address] Platelets (Bld) [#/Vol] 349 10*3/uL Normal 150-450 [facility] Comment on above: Performed By: #### L 503.6620, L500.2500, L100.0100 ####[facility] [address] [place], [address] RBC (Bld) [#/Vol] 3.71 10*6/uL Low 4.6-6.2 [facility] Comment on above: Performed By: #### L 503.6620, L500.2500, L100.0100 ####[facility] [address] [place], [address] RDW SD 53.1 fl High 35.1-43.9 [facility] Comment on above: Performed By: #### L 503.6620, L500.2500, L100.0100 ####[facility] [address] [place], [address] WBC (Bld) [#/Vol] 12.2 10*3/uL High 4.4-11.0 [facility] Comment on above: Performed By: #### L 503.6620, L500.2500, L100.0100 ####[facility] [address] [place], [address] CO2 (BldV) [Moles/Vol]Ordere d By: Luli Alex on 04-12-2024 CO2 [Moles/Vol] 24 mmol/L 23-33 [facility] Chest 1 View (Portable)on Chest 1 View (Portable) Normal [facility] Emergency Department Summary on 04-12-2024 Emergency Department Summary Normal [facility] H AND P Exam - Hospitaliston 04-12-2024 H&P Exam - Hospitalist Normal [facility] Influenza virus A and B and SARS-CoV-2 (COVID-19) and Respiratory syncytial virus RNAOrdered By: Luli Alex on 04-12-2024 SARS-CoV-2 (COVID-19) RNA FLORES+probe Ql (Unsp spec) [facility] L501.4020on 04-12-2024 TROPONIN-I HS 12 pg/mL Normal 3.0-78.0 [facility] Comment on above: Order Comment: Comme nts: SPECIMEN #3'TROP' Serial specimen #1, #2 or #3: 3 Result Comment: Plea se Note: New Test Units and Gender Specific Reference Ranges. For more information see Policy Stat Procedure Lennon High Sensitivity Troponin (TNIH) and attachments. Performed By: #### L 501.4020 ####[facility] [address] [place], [address] TROPONIN-I HS 18 pg/mL Normal 3.0-78.0 [facility] Comment on above: Order Comment: Comme nts: SPECIMEN #2'TROP' Serial specimen #1, #2 or #3: 2 Result Comment: Plea se Note: New Test Units and Gender Specific Reference Ranges. For more information see Policy Stat Procedure Lennon High Sensitivity Troponin (TNIH) and attachments. Performed By: #### L 501.4020 ####[facility] [address] [place], [address] TROPONIN-I HS 16 pg/mL Normal 3.0-78.0 [facility] Comment on above: Order Comment: NEETU W. PREVIOUS SPECIMEN REJECTED DUE TOHEMOLYSIS. 04/12/24 1220 Luiz Sandoval.1 Result Comment: Plea se Note: New Test Units and Gender Specific Reference Ranges. For more information see Policy Stat Procedure Lennon High Sensitivity Troponin (TNIH) and attachments. Performed By: #### L 500.2500, L501.4020 ####[facility] [address] [place], [address] M100.678on 04-12-2024 M100.678 Pending SARS-CoV-2 (COVID 19) Negative INFLUENZA A Negative INFLUENZA B Negative RSV PCR Negative Normal [facility] Comment on above: Performed By: #### M 100.678 ####[facility] [address] [place], [address] No Panel InformationOrdered By: Luli Alex on 04-12-2024 JOSHUA [facility] Not entered [facility] Cannula [facility] Organism identificationOrder ed By: Luli Alex on 04-12-2024 Microorganism identified Cx Nom (Unsp spec) [facility] Troponin IOrdered By: Eduin Ospina on 04-12-2024 Troponin I 12 pg/mL 3.0-78.0 [facility] Venous Blood Gason 5 Blood Gas Type JOSHUA Normal [facility] Comment on above: Performed By: #### L 9000.0810 ####[facility] [address] [place], [address] CO2 [Moles/Vol] 24 mmol/L Normal 23-33 [facility] Comment on above: Performed By: #### L 9000.0810 ####[facility] [address] [place], [address] FI02 5.0 Normal [facility] Comment on above: Performed By: #### L 9000.0810 ####[facility] [address] [place], [address] HCO3 (Bld) [Moles/Vol] 23 mmol/L Normal 22-26 [facility] Comment on above: Performed By: #### L 900.0810 ####[facility] [address] [place], [address] O2 Delivery Dev Cannula Normal [facility] Comment on above: Performed By: #### L 9000.0810 ####[facility] [address] [place], [address] SITE Not entered Normal [facility] Comment on above: Performed By: #### L 9000.0810 ####[facility] [address] [place], [address] VBG BE -1 mmol/L Normal -1.0-3.5 [facility] Comment on above: Performed By: #### L 9000.0810 ####[facility] [address] [place], [address] VBG pCO2 34.8 mmHg Low 41-51 [facility] Comment on above: Performed By: #### L 9000.0810 ####[facility] [address] [place], [address] VBG pH 7.43 High 7.32-7.42 [facility] Comment on above: Performed By: #### L 9000.0810 ####[facility] [address] [place], [address] VBG PO2 30 mmHg Normal 25-40 [facility] Comment on above: Performed By: #### L 9000.0810 ####[facility] [address] [place], [address] VBG SO2 60 Normal 50-70 [facility] Comment on above: Performed By: #### L 9000.0810 ####[facility] [address] [place], [address] Venous blood base excess elizabeth surementOrdered By: Luli Alex on 04-12-2024 Base excess Calc (BldV) [Moles/Vol] -1 mmol/L -1.0-3.5 [facility] Venous blood bicarbonate elizabeth surementOrdered By: Luli Alex on 04-12-2024 HCO3 (Bld) [Moles/Vol] 23 mmol/L 22-26 [facility] Venous blood pH measurementO rdered By: Luli Alex on 04-12-2024 pH (BldV) 7.43 [pH] High 7.32-7.42 [facility] Venous blood partial pressur e of carbon dioxide measurementOrdered By: Luli Alex on 04-12-2024 CO2 (BldV) [Partial pressure] 34.8 mm[Hg] Low 41-51 [facility] Venous blood partial pressur e of oxygen measurementOrdered By: Luli Alex on 04-12-2024 Oxygen (BldV) [Partial pressure] 30 mm[Hg] 25-40 [facility] 36on 04-09-2024 36 Call ref #[id number] 000 NAN for CPT 42058 & 73824 Normal [facility] No Panel Informationon 04-07 1. There [...] MD Electronically Signed Date/Time: 04/07/2024 12:27 AM [facility] [employer] [facility] Patient Name: KRUNAL LEOS : 1965 [place] [address]#: [id number] Exam Date/Time: 04/06/2024 13:31 Procedure: VASC US [...] 50-69% ECA systolic: 256 cm/sec Vertebral: Antegrade [facility] EM[facility] RADIOLOGY SYSTEM Sameer Etienne MD - 04/07/2024 Patient Name: KRUNAL LEOS : 1965 [facility]#: [id number] Exam Date/Time: 04/06/2024 13:31 Procedure: VASC US [...] Electronically Signed Date/Time: 04/07/2024 12:27 AM [facility] US CAROTID ARTERY DUPLE X BILATERALon 04-07-2024 [facility] US CAROTID ARTERY DUPLEX BILATERAL Patient Name: KRUNAL LEOS : 1965 [place] Ll[address]#: [id number] Exam Date/Time: 04/06/2024 13:31 Procedure: [facility] US CAROTID ARTERY DUPLEX BILATERAL Ordering [...] Signed Date/Time: 04/07/2024 12:27 AM EST Normal [facility] Office Visit Reporton 2023 Office Visit Report Normal [facility] Bedside Glucoseon 03-27-2024 FINGERSTICK GLU 195 mg/dL High 74-106 [facility] Comment on above: Result Comment: ANI BRADFORD OF PATIENT CARE PER NURSING PROTOCOL Performed By: #### L 501.080 ####[facility] [address] [place], [place], [address] Colonoscopy Reporton 024 Colonoscopy Report Normal [facility] EGD Reporton 03-27-2024 EGD Report Normal [facility] H Pylori (initial)on 024 H Pylori (initial) Normal [facility] Comment on above: Performed By: #### P H.PYLORI ####[facility] [address] [place], [place], [address] MR/POSTOP.ANEon 03-27-2024 MR/POSTOP.ANE Normal [facility] MR/MREMYFFD0hx 03-27-2024 MR/POSTOPAN2 Normal [facility] Surgery Specimen Level Dolores 03-27-2024 Surgery Specimen Level IV Normal [facility] Comment on above: Performed By: #### P SUIV ####[facility] [address] [place], [address] Pulmonary Visit Reporton Pulmonary Visit Report Normal [facility] MR/PAT.ANEon 03-20-2024 MR/PAT.ANE Normal [facility] Cardiology Visit Reporton Cardiology Visit Report Normal [facility] RICARDO w/ Reflex Mult Confirmon 03-05-2024 RICARDO,DIRECT Negative Normal Negative [facility] Comment on above: Result Comment: Perf ormed at: - [facility] [address] [id number] Director: Chance Morales PhD, Phone: [phone] Performed By: #### L 505.7010, L3300.1200, L3100.5450, L4600.0100 ####[facility] [address] [place], [address] ANCAon 03-05-2024 Atypical pANCA <1:20 Normal Neg:<1:20 [facility] Comment on above: Result Comment: The atypical pANCA pattern has been observed in asignificant percentage of patients with ulcerative colitis,primary sclerosing cholangitis and autoimmune hepatitis. Performed By: #### L 505.7010, L3300.1200, L3100.5450, L4600.0100 ####[facility] [address] [place], [address] Cytoplasmic Ab <1:20 Normal Neg:<1:20 [facility] Comment on above: Performed By: #### L 505.7010, L3300.1200, L3100.5450, L4600.0100 ####[facility] [address] [place], [address] Perinuclear Ab. <1:20 Normal Neg:<1:20 [facility] Comment on above: Result Comment: The presence of positive fluorescence exhibiting P-ANCA orC-ANCA patterns alone is not specific for the diagnosis ofWegener's Granulomatosis (WG) or microscopic polyangiitis.Decisions about treatment should not be based solely onANCA IFA results. The International ANCA Group Consensusrecommends follow up testing of positive sera with both KY-3 and MPO-ANCA enzyme immunoassays. As many as 5% serumsamples are positive only by EIA. Ref. AM J Clin Pzgvav3762;111:507-513. Performed By: #### L 505.7010, L3300.1200, L3100.5450, L4600.0100 ####[facility] [address] [place], [address] CCP IgG Antibodieson 024 CCP IgG Ab. 6 units Normal 0-19 [facility] Comment on above: Result Comment: Nega tive <20 Weak positive 20 - 39 Moderate positive 40 - 59 Strong positive >59Performed at: [facility] [address] [id number] Director: Chance Morales PhD, Phone: [phone] Performed By: #### L 505.7010, L3300.1200, L3100.5450, L4600.0100 ####[facility] [address] [place], [place], [address] Discharge Instructionon Discharge Instruction Normal [facility] Rheumatoid Factoron 03-04-20 24 RHEUMATOID FAC 25.0 IU/mL High <15 [facility] Comment on above: Performed By: #### L 505.7010, L3300.1200, L3100.5450, L4600.0100 ####[facility] [address] [place], [address] CBC W/Diff, Automatedon Absolute Lymph 1.46 X10 3/uL Normal 0.83-4.51 [facility] Comment on above: Performed By: #### L 501.9520, L100.0100 ####[facility] [address] [place], [address] Absolute Neut 5.9 X10 3/uL Normal 2.0-7.7 [facility] Comment on above: Performed By: #### L 501.9598, L100.0100 ####[facility] [address] [place], [address] Basophils/100 WBC (Bld) 0.6 % Normal 0-1 [facility] Comment on above: Performed By: #### L 501.9520, L100.0100 ####[facility] [address] [place], [address] Eosinophils/100 WBC (Bld) 2.9 % Normal 0-5 [facility] Comment on above: Performed By: #### L 501.9520, L100.0100 ####[facility] [address] [place], [address] Erythrocyte distribution width (RBC) [Ratio] 17.6 % High 11.6-14.6 [facility] Comment on above: Performed By: #### L 501.9519, L100.0100 ####[facility] [address] [place], [address] Hematocrit (Bld) [Volume fraction] 31.2 % Low 40-54 [facility] Comment on above: Performed By: #### L 501.9519, L100.0100 ####[facility] [address] [place], [address] Hemoglobin (Bld) [Mass/Vol] 9.0 g/dL Low 13.0-16.5 [facility] Comment on above: Performed By: #### L 501.9520, L100.0100 ####[facility] [address] [place], [address] IG% 0.400 Normal 0.0-0.9 [facility] Comment on above: Result Comment: IG% - Immature Granulocytes (promyelocytes, myelocytes andmetamyelocytes) > 1% indicates that a LEFT SHIFT is Present. Performed By: #### L 501.9520, L100.0100 ####[facility] [address] [place], [address] Lymphocytes/100 WBC (Bld) 17.2 % Low 19-41 [facility] Comment on above: Performed By: #### L 501.9520, L100.0100 ####[facility] [address] [place], [address] MCH (RBC) [Entitic mass] 21.9 pg Low 27.0-32.0 [facility] Comment on above: Performed By: #### L 501.9520, L100.0100 ####[facility] [address] [place], [address] MCHC (RBC) [Mass/Vol] 28.8 g/dL Low 32-36 [facility] Comment on above: Performed By: #### L 501.9519, L100.0100 ####[facility] [address] [place], [address] MCV (RBC) [Entitic vol] 75.9 fL Low 80-94 [facility] Comment on above: Performed By: #### L 501.9519, L100.0100 ####[facility] [address] [place], [address] Monocytes/100 WBC (Bld) 9.3 % Normal 0-10 [facility] Comment on above: Performed By: #### L 501.9519, L100.0100 ####[facility] [address] [place], [address] Neutrophils/100 WBC (Bld) 69.6 % Normal 47-70 [facility] Comment on above: Performed By: #### L 501.9519, L100.0100 ####[facility] [address] [place], [address] Nucleated RBC (Bld) [#/Vol] 0 10*3/uL Normal 0-5 [facility] Comment on above: Performed By: #### L 501.9520, L100.0100 ####[facility] [address] [place], [address] Platelet mean volume (Bld) [Entitic vol] 9.8 fL Normal 6.2-12.0 [facility] Comment on above: Performed By: #### L 501.9520, L100.0100 ####[facility] [address] [place], [address] Platelets (Bld) [#/Vol] 227 10*3/uL Normal 150-450 [facility] Comment on above: Performed By: #### L 501.9520, L100.0100 ####[facility] [address] [place], [address] RBC (Bld) [#/Vol] 4.11 10*6/uL Low 4.6-6.2 [facility] Comment on above: Performed By: #### L 501.9520, L100.0100 ####[facility] [address] [place], [address] RDW SD 47.8 fl High 35.1-43.9 [facility] Comment on above: Performed By: #### L 501.9520, L100.0100 ####[facility] [address] [place], [address] WBC (Bld) [#/Vol] 8.5 10*3/uL Normal 4.4-11.0 [facility] Comment on above: Performed By: #### L 501.9520, L100.0100 ####[facility] [address] [place], [address] Chest without Contraston Chest without Contrast Normal [facility] Consultation - Intensiviston 03-03-2024 Consultation - Gas Main Fitter Normal [facility] RESPIRATORY PANEL MOLECULARo n 03-03-2024 RP PANEL Normal [facility] Comment on above: Performed By: #### M 100.638 ####[facility] [address] [place], [address] Thyroid Stim Hormone (TSH)on 03-03-2024 TSH 1.390 uIU/mL Normal 0.358-3.740 [facility] Comment on above: Performed By: #### L 501.9520, L100.0100 ####[facility] [address] [place], [address] 12 Lead EKGon 03-02-2024 12 Lead EKG Normal [facility] BNP,B-Type NATRIURETIC PEPTI Sindy 03-02-2024 Natriuretic peptide B (Bld) [Mass/Vol] 48.5 pg/mL Normal 0-100 [facility] Comment on above: Performed By: #### L 501.4020, L100.0100, L500.2500, L503.6620 ####[facility] [address] [place], [address] Basic Metabolic Profile (BMP )on 03-02-2024 BUN/CRE 23.3 RATIO High 10-20 [facility] Comment on above: Order Comment: 'TROP ' Serial specimen #1, #2 or #3: 1 Performed By: #### L 501.4020, L100.0100, L500.2500, L503.6620 ####[facility] [address] [place], [address] CA,Total 9.0 mg/dL Normal 8.5-10.1 [facility] Comment on above: Order Comment: 'TROP ' Serial specimen #1, #2 or #3: 1 Performed By: #### L 501.4020, L100.0100, L500.2500, L503.6620 ####[facility] [address] [place], [address] Chloride [Moles/Vol] 107 mmol/L Normal 98-107 [facility] Comment on above: Order Comment: 'TROP ' Serial specimen #1, #2 or #3: 1 Performed By: #### L 501.4020, L100.0100, L500.2500, L503.6620 ####[facility] [address] [place], [address] CO2 [Moles/Vol] 24.0 mmol/L Normal 21.0-32.0 [facility] Comment on above: Order Comment: 'TROP ' Serial specimen #1, #2 or #3: 1 Performed By: #### L 501.4020, L100.0100, L500.2500, L503.6620 ####[facility] [address] [place], [address] Creatinine [Mass/Vol] 1.03 mg/dL Normal 0.70-1.30 [facility] Comment on above: Order Comment: 'TROP ' Serial specimen #1, #2 or #3: 1 Result Comment: The validity of the calculated GFR GFRAA in patients over70 years has not been determined. Clinical correlation isessential. Performed By: #### L 501.4020, L100.0100, L500.2500, L503.6620 ####[facility] [address] [place], [address] ECRCL 107.77 ml/min Normal [facility] Comment on above: Order Comment: 'TROP ' Serial specimen #1, #2 or #3: 1 Performed By: #### L 501.4020, L100.0100, L500.2500, L503.6620 ####[facility] [address] [place], [address] EST GFR - AA 95 mL/min Normal >60 [facility] Comment on above: Order Comment: 'TROP ' Serial specimen #1, #2 or #3: 1 Result Comment: Afri can Angolan GFR Calc Performed By: #### L 501.4020, L100.0100, L500.2500, L503.6620 ####[facility] [address] [place], [address] GAP 6 Normal 5-15 [facility] Comment on above: Order Comment: 'TROP ' Serial specimen #1, #2 or #3: 1 Performed By: #### L 501.4020, L100.0100, L500.2500, L503.6620 ####[facility] [address] [place], [address] GFR/1.73 sq M.predicted among non-blacks MDRD (S/P/Bld) [Vol rate/Area] 78 mL/min/{1.73_m2} Normal >60 [facility] Comment on above: Order Comment: 'TROP ' Serial specimen #1, #2 or #3: 1 Result Comment: Non- GFR Calc Performed By: #### L 501.4020, L100.0100, L500.2500, L503.6620 ####[facility] [address] [place], [address] Glucose [Mass/Vol] 220 mg/dL High 74-106 [facility] Comment on above: Order Comment: 'TROP ' Serial specimen #1, #2 or #3: 1 Result Comment: Gluc ose result greater than or equal to 200 mg/dLsuggests DIABETES MELLITUS per A.D.A. criteria. Performed By: #### L 501.4020, L100.0100, L500.2500, L503.6620 ####[facility] [address] [place], [address] Potassium [Moles/Vol] 4.0 mmol/L Normal 3.5-5.1 [facility] Comment on above: Order Comment: 'TROP ' Serial specimen #1, #2 or #3: 1 Performed By: #### L 501.4020, L100.0100, L500.2500, L503.6620 ####[facility] [address] [place], [address] Sodium [Moles/Vol] 136 mmol/L Normal 136-145 [facility] Comment on above: Order Comment: 'TROP ' Serial specimen #1, #2 or #3: 1 Performed By: #### L 501.4020, L100.0100, L500.2500, L503.6620 ####[facility] [address] [place], [address] Urea nitrogen [Mass/Vol] 24 mg/dL High 7-18 [facility] Comment on above: Order Comment: 'TROP ' Serial specimen #1, #2 or #3: 1 Performed By: #### L 501.4020, L100.0100, L500.2500, L503.6620 ####[facility] [address] [place], [address] CBC W/Diff, Automatedon 12-0 2-2024 Absolute Lymph 1.30 X10 3/uL Normal 0.83-4.51 [facility] Comment on above: Performed By: #### L 501.4020, L100.0100, L500.2500, L503.6620 ####[facility] [address] [place], [address] Absolute Neut 6.6 X10 3/uL Normal 2.0-7.7 [facility] Comment on above: Performed By: #### L 501.4020, L100.0100, L500.2500, L503.6620 ####[facility] [address] [place], [address] Basophils/100 WBC (Bld) 0.6 % Normal 0-1 [facility] Comment on above: Performed By: #### L 501.4020, L100.0100, L500.2500, L503.6620 ####[facility] [address] [place], [address] Eosinophils/100 WBC (Bld) 2.4 % Normal 0-5 [facility] Comment on above: Performed By: #### L 501.4020, L100.0100, L500.2500, L503.6620 ####[facility] [address] [place], [address] Erythrocyte distribution width (RBC) [Ratio] 17.9 % High 11.6-14.6 [facility] Comment on above: Performed By: #### L 501.4020, L100.0100, L500.2500, L503.6620 ####[facility] [address] [place], [address] Hematocrit (Bld) [Volume fraction] 32.1 % Low 40-54 [facility] Comment on above: Performed By: #### L 501.4020, L100.0100, L500.2500, L503.6620 ####[facility] [address] [place], [address] Hemoglobin (Bld) [Mass/Vol] 9.3 g/dL Low 13.0-16.5 [facility] Comment on above: Performed By: #### L 501.4020, L100.0100, L500.2500, L503.6620 ####[facility] [address] [place], [address] IG% 0.400 Normal 0.0-0.9 [facility] Comment on above: Result Comment: IG% - Immature Granulocytes (promyelocytes, myelocytes andmetamyelocytes) > 1% indicates that a LEFT SHIFT is Present. Performed By: #### L 501.4020, L100.0100, L500.2500, L503.6620 ####[facility] [address] [place], [address] Lymphocytes/100 WBC (Bld) 14.4 % Low 19-41 [facility] Comment on above: Performed By: #### L 501.4020, L100.0100, L500.2500, L503.6620 ####[facility] [address] [place], [address] MCH (RBC) [Entitic mass] 22.2 pg Low 27.0-32.0 [facility] Comment on above: Performed By: #### L 501.4020, L100.0100, L500.2500, L503.6620 ####[facility] [address] [place], [address] MCHC (RBC) [Mass/Vol] 29.0 g/dL Low 32-36 [facility] Comment on above: Performed By: #### L 501.4020, L100.0100, L500.2500, L503.6620 ####[facility] [address] [place], [address] MCV (RBC) [Entitic vol] 76.6 fL Low 80-94 [facility] Comment on above: Performed By: #### L 501.4020, L100.0100, L500.2500, L503.6620 ####[facility] [address] [place], [address] Monocytes/100 WBC (Bld) 8.3 % Normal 0-10 [facility] Comment on above: Performed By: #### L 501.4020, L100.0100, L500.2500, L503.6620 ####[facility] [address] [place], [address] Neutrophils/100 WBC (Bld) 73.9 % High 47-70 [facility] Comment on above: Performed By: #### L 501.4020, L100.0100, L500.2500, L503.6620 ####[facility] [address] [place], [address] Nucleated RBC (Bld) [#/Vol] 0 10*3/uL Normal 0-5 [facility] Comment on above: Performed By: #### L 501.4020, L100.0100, L500.2500, L503.6620 ####[facility] [address] [place], [address] Platelet mean volume (Bld) [Entitic vol] 10.6 fL Normal 6.2-12.0 [facility] Comment on above: Performed By: #### L 501.4020, L100.0100, L500.2500, L503.6620 ####[facility] [address] [place], [address] Platelets (Bld) [#/Vol] 242 10*3/uL Normal 150-450 [facility] Comment on above: Performed By: #### L 501.4020, L100.0100, L500.2500, L503.6620 ####[facility] [address] [place], [address] RBC (Bld) [#/Vol] 4.19 10*6/uL Low 4.6-6.2 [facility] Comment on above: Performed By: #### L 501.4020, L100.0100, L500.2500, L503.6620 ####[facility] [address] [place], [address] RDW SD 49.2 fl High 35.1-43.9 [facility] Comment on above: Performed By: #### L 501.4020, L100.0100, L500.2500, L503.6620 ####[facility] [address] [place], [address] WBC (Bld) [#/Vol] 9.0 10*3/uL Normal 4.4-11.0 [facility] Comment on above: Performed By: #### L 501.4020, L100.0100, L500.2500, L503.6620 ####[facility] [address] [place], [address] Chest PA and Lateralon 03-02 Chest PA and Lateral Normal [facility] Echo Complete W/ Contraston 03-02-2024 Echo Complete W/ Contrast Normal [facility] Emergency Department Summary on 03-02-2024 Emergency Department Summary Normal [facility] H AND P Exam - Hospitaliston 03-02-2024 H&P Exam - Hospitalist Normal [facility] L501.4020on 03-02-2024 TROPONIN-I HS 35 pg/mL Normal 3.0-78.0 [facility] Comment on above: Order Comment: 'TROP ' Serial specimen #1, #2 or #3: 1 Result Comment: Kodi monterroso Note: New Test Units and Gender Specific Reference Ranges. For more information see Policy Stat Procedure Lennon High Sensitivity Troponin (TNIH) and attachments. Performed By: #### L 501.4020, L100.0100, L500.2500, L503.6620 ####[facility] [address] [place], [address] M100.678on 03-02-2024 M100.678 Pending SARS-CoV-2 (COVID 19) Negative INFLUENZA A Negative INFLUENZA B Negative RSV PCR Negative Normal [facility] Comment on above: Performed By: #### M 100.678 ####[facility] [address] [place], [address] Basic Metabolic Profile (BMP )on 02-26-2024 BUN/CRE 20.5 RATIO High 10-20 [facility] Comment on above: Order Comment: 'TROP ' Serial specimen #1, #2 or #3: 1 Performed By: #### L 501.4020, L501.5200, L500.2500, L100.0100 ####[facility] [address] [place], [address] CA,Total 9.0 mg/dL Normal 8.5-10.1 [facility] Comment on above: Order Comment: 'TROP ' Serial specimen #1, #2 or #3: 1 Performed By: #### L 501.4020, L501.5200, L500.2500, L100.0100 ####[facility] [address] [place], [address] Chloride [Moles/Vol] 109 mmol/L High 98-107 [facility] Comment on above: Order Comment: 'TROP ' Serial specimen #1, #2 or #3: 1 Performed By: #### L 501.4020, L501.5200, L500.2500, L100.0100 ####[facility] [address] [place], [address] CO2 [Moles/Vol] 22.0 mmol/L Normal 21.0-32.0 [facility] Comment on above: Order Comment: 'TROP ' Serial specimen #1, #2 or #3: 1 Performed By: #### L 501.4020, L501.5200, L500.2500, L100.0100 ####[facility] [address] [place], [address] Creatinine [Mass/Vol] 1.32 mg/dL High 0.70-1.30 [facility] Comment on above: Order Comment: 'TROP ' Serial specimen #1, #2 or #3: 1 Result Comment: The validity of the calculated GFR GFRAA in patients over70 years has not been determined. Clinical correlation isessential. Performed By: #### L 501.4020, L501.5200, L500.2500, L100.0100 ####[facility] [address] [place], [address] ECRCL 83.89 ml/min Normal [facility] Comment on above: Order Comment: 'TROP ' Serial specimen #1, #2 or #3: 1 Performed By: #### L 501.4020, L501.5200, L500.2500, L100.0100 ####[facility] [address] [place], [address] EST GFR - AA 71 mL/min Normal >60 [facility] Comment on above: Order Comment: 'TROP ' Serial specimen #1, #2 or #3: 1 Result Comment: Afri can Angolan GFR Calc Performed By: #### L 501.4020, L501.5200, L500.2500, L100.0100 ####[facility] [address] [place], [address] GAP 7 Normal 5-15 [facility] Comment on above: Order Comment: 'TROP ' Serial specimen #1, #2 or #3: 1 Performed By: #### L 501.4020, L501.5200, L500.2500, L100.0100 ####[facility] [address] [place], [address] GFR/1.73 sq M.predicted among non-blacks MDRD (S/P/Bld) [Vol rate/Area] 59 mL/min/{1.73_m2} Low >60 [facility] Comment on above: Order Comment: 'TROP ' Serial specimen #1, #2 or #3: 1 Result Comment: Non- GFR Calc Performed By: #### L 501.4020, L501.5200, L500.2500, L100.0100 ####[facility] [address] [place], [address] Glucose [Mass/Vol] 193 mg/dL High 74-106 [facility] Comment on above: Order Comment: 'TROP ' Serial specimen #1, #2 or #3: 1 Result Comment: Fast ing Glucose result greater than or equal to 126 mg/dLsuggests DIABETES MELLITUS per A.D.A. criteria. Performed By: #### L 501.4020, L501.5200, L500.2500, L100.0100 ####[facility] [address] [place], [address] Potassium [Moles/Vol] 4.0 mmol/L Normal 3.5-5.1 [facility] Comment on above: Order Comment: 'TROP ' Serial specimen #1, #2 or #3: 1 Performed By: #### L 501.4020, L501.5200, L500.2500, L100.0100 ####[facility] [address] [place], [address] Sodium [Moles/Vol] 138 mmol/L Normal 136-145 [facility] Comment on above: Order Comment: 'TROP ' Serial specimen #1, #2 or #3: 1 Performed By: #### L 501.4020, L501.5200, L500.2500, L100.0100 ####[facility] [address] [place], [address] Urea nitrogen [Mass/Vol] 27 mg/dL High 7-18 [facility] Comment on above: Order Comment: 'TROP ' Serial specimen #1, #2 or #3: 1 Performed By: #### L 501.4020, L501.5200, L500.2500, L100.0100 ####[facility] [address] [place], [address] CBC W/Diff, Automatedon 11-2 -2023 Absolute Lymph 1.36 X10 3/uL Normal 0.83-4.51 [facility] Comment on above: Performed By: #### L 501.4020, L501.5200, L500.2500, L100.0100 ####[facility] [address] [place], [address] Absolute Neut 6.7 X10 3/uL Normal 2.0-7.7 [facility] Comment on above: Performed By: #### L 501.4020, L501.5200, L500.2500, L100.0100 ####[facility] [address] [place], [address] Basophils/100 WBC (Bld) 0.9 % Normal 0-1 [facility] Comment on above: Performed By: #### L 501.4020, L501.5200, L500.2500, L100.0100 ####[facility] [address] [place], [address] Eosinophils/100 WBC (Bld) 2.1 % Normal 0-5 [facility] Comment on above: Performed By: #### L 501.4020, L501.5200, L500.2500, L100.0100 ####[facility] [address] [place], [address] Erythrocyte distribution width (RBC) [Ratio] 18.2 % High 11.6-14.6 [facility] Comment on above: Performed By: #### L 501.4020, L501.5200, L500.2500, L100.0100 ####[facility] [address] [place], [address] Hematocrit (Bld) [Volume fraction] 34.4 % Low 40-54 [facility] Comment on above: Performed By: #### L 501.4020, L501.5200, L500.2500, L100.0100 ####[facility] [address] [place], [address] Hemoglobin (Bld) [Mass/Vol] 10.2 g/dL Low 13.0-16.5 [facility] Comment on above: Performed By: #### L 501.4020, L501.5200, L500.2500, L100.0100 ####[facility] [address] [place], [address] IG% 0.400 Normal 0.0-0.9 [facility] Comment on above: Result Comment: IG% - Immature Granulocytes (promyelocytes, myelocytes andmetamyelocytes) > 1% indicates that a LEFT SHIFT is Present. Performed By: #### L 501.4020, L501.5200, L500.2500, L100.0100 ####[facility] [address] [place], [address] Lymphocytes/100 WBC (Bld) 14.5 % Low 19-41 [facility] Comment on above: Performed By: #### L 501.4020, L501.5200, L500.2500, L100.0100 ####[facility] [address] [place], [address] MCH (RBC) [Entitic mass] 22.7 pg Low 27.0-32.0 [facility] Comment on above: Performed By: #### L 501.4020, L501.5200, L500.2500, L100.0100 ####[facility] [address] [place], [address] MCHC (RBC) [Mass/Vol] 29.7 g/dL Low 32-36 [facility] Comment on above: Performed By: #### L 501.4020, L501.5200, L500.2500, L100.0100 ####[facility] [address] [place], [address] MCV (RBC) [Entitic vol] 76.6 fL Low 80-94 [facility] Comment on above: Performed By: #### L 501.4020, L501.5200, L500.2500, L100.0100 ####[facility] [address] [place], [address] Monocytes/100 WBC (Bld) 10.1 % High 0-10 [facility] Comment on above: Performed By: #### L 501.4020, L501.5200, L500.2500, L100.0100 ####[facility] [address] [place], [address] Neutrophils/100 WBC (Bld) 72.0 % High 47-70 [facility] Comment on above: Performed By: #### L 501.4020, L501.5200, L500.2500, L100.0100 ####[facility] [address] [place], [address] Nucleated RBC (Bld) [#/Vol] 0 10*3/uL Normal 0-5 [facility] Comment on above: Performed By: #### L 501.4020, L501.5200, L500.2500, L100.0100 ####[facility] [address] [place], [address] Platelet mean volume (Bld) [Entitic vol] 10.1 fL Normal 6.2-12.0 [facility] Comment on above: Performed By: #### L 501.4020, L501.5200, L500.2500, L100.0100 ####[facility] [address] [place], [address] Platelets (Bld) [#/Vol] 254 10*3/uL Normal 150-450 [facility] Comment on above: Performed By: #### L 501.4020, L501.5200, L500.2500, L100.0100 ####[facility] [address] [place], [address] RBC (Bld) [#/Vol] 4.49 10*6/uL Low 4.6-6.2 [facility] Comment on above: Performed By: #### L 501.4020, L501.5200, L500.2500, L100.0100 ####[facility] [address] [place], [address] RDW SD 49.1 fl High 35.1-43.9 [facility] Comment on above: Performed By: #### L 501.4020, L501.5200, L500.2500, L100.0100 ####[facility] [address] [place], [address] WBC (Bld) [#/Vol] 9.4 10*3/uL Normal 4.4-11.0 [facility] Comment on above: Performed By: #### L 501.4020, L501.5200, L500.2500, L100.0100 ####[facility] [address] [place], [address] Chest 1 View (Portable)on Chest 1 View (Portable) Normal [facility] D-Dimer Quantitative (DVT/PE )on 02-26-2024 D-DIMER QUANT 0.44 FEU/ug/m Normal 0.27-0.49 [facility] Comment on above: Result Comment: NORM AL D-Dimer level (<0.50) indicates no DVT or PE. Performed By: #### L 300.8000 ####[facility] [address] [place], [address] Emergency Department Summary on 02-26-2024 Emergency Department Summary Normal [facility] L501.4020on 02-26-2024 TROPONIN-I HS 443 pg/mL Invalid Interpretation Code 3.0-78.0 [facility] Comment on above: Order Comment: 'TROP ' Serial specimen #1, #2 or #3: 2 Result Comment: Crit ical Result(s) Called at: 13:36:54 02/26/2024 by: CINDI Estevez. Results read back by same. Please Note: New Test Units and Gender Specific Reference Ranges. For more information see Policy Stat Procedure Lennon High Sensitivity Troponin (TNIH) and attachments. Performed By: #### L 501.4020 ####[facility] [address] [place], [address] TROPONIN-I HS 358 pg/mL Invalid Interpretation Code 3.0-78.0 [facility] Comment on above: Order Comment: 'TROP ' Serial specimen #1, #2 or #3: 1 Result Comment: Crit ical Result(s) Called at: 11:46:25 02/26/2024 by: CINDI Vazquez. Results read back by same. Please Note: New Test Units and Gender Specific Reference Ranges. For more information see Policy Stat Procedure Lennon High Sensitivity Troponin (TNIH) and attachments. Performed By: #### L 501.4020, L501.5200, L500.2500, L100.0100 ####[facility] [address] [place], [address] Magnesiumon 02-26-2024 Magnesium [Mass/Vol] 2.3 mg/dL Normal 1.6-2.6 [facility] Comment on above: Order Comment: 'TROP ' Serial specimen #1, #2 or #3: 1 Performed By: #### L 501.4020, L501.5200, L500.2500, L100.0100 ####[facility] [address] [place], [address] Office Visit Reporton 2023 Office Visit Report Normal [facility] Neurology Visit Reporton Neurology Visit Report Normal [facility] 36on 02-12-2024 36 Notes and imaging [...] will determine when to resume Eliquis. Normal [facility] 36 This patient left a voicemail returning a call regarding his test results with Dr. Hutton Please advise :) Normal [facility] Gastroenterology Visit Repor ton 02-07-2024 Gastroenterology Visit Report Normal [facility] 36on 02-06-2024 36 Name of caller: Megan Contact phone number: [phone] Relationship to Patient: care team amanda Provider: Jose Antonio Practice: Endovascular Chief Complaint/Reason for Call: please send all lab work from September to fax [phone] [facility] Best time of day caller can be reached: any Patient advised that office/PCP has 24-48 business hours to return their call: No Normal [facility] CT HEAD NECK ANGIO W AND WO IV CONTRASTon 02-06-2024 CT HEAD NECK ANGIO W AND WO IV CONTRAST Patient Name: KRUNAL LEOS : 1965 [address] Llct#: [id number] Exam Date/Time: 02/06/2024 08:04 Procedure: CT HEAD [...] carotid artery stenosis, Ischemic cerebrovascular accident Normal [facility] Thyroidon 02-06-2024 Thyroid Normal [facility] Progress Noteon 02-05-2024 Progress Note 02/05/24 Pt was seen today for CT Head/Neck w & wo contrast @ [facility] Pt had multiple attempts for IV placement from 2 different techs, with no success. Patient did inform us that he is a very hard stick and normally US is needed. Reached out to oncology for assistance but were extremely busy. Pt was advised to call central scheduling to reschedule at either [facility] or [facility] as they have US. He was initially scheduled at [facility]. The office was contacted on 02/05/24 to relay the information on the outcome of today's CT exam. Christine at the office was given this information. Normal [facility] Oncology Visit Reporton Oncology Visit Report Normal [facility] Basic Metabolic Profile (BMP )on 01-22-2024 BUN/CRE 25.4 RATIO High 01-18 [facility] Comment on above: Performed By: #### L 500.2500, L100.0100 ####[facility] [address] [place], [address] CA,Total 8.9 mg/dL Normal 8.5-10.1 [facility] Comment on above: Performed By: #### L 500.2500, L100.0100 ####[facility] [address] [place], [address] Chloride [Moles/Vol] 105 mmol/L Normal 98-107 [facility] Comment on above: Performed By: #### L 500.2500, L100.0100 ####[facility] [address] [place], [address] CO2 [Moles/Vol] 24.0 mmol/L Normal 21.0-32.0 [facility] Comment on above: Performed By: #### L 500.2500, L100.0100 ####[facility] [address] [place], [address] Creatinine [Mass/Vol] 1.22 mg/dL Normal 0.70-1.30 [facility] Comment on above: Result Comment: The validity of the calculated GFR GFRAA in patients over70 years has not been determined. Clinical correlation isessential. Performed By: #### L 500.2500, L100.0100 ####[facility] [address] [place], [address] ECRCL 91.97 ml/min Normal [facility] Comment on above: Performed By: #### L 500.2500, L100.0100 ####[facility] [address] [place], [address] EST GFR - AA 78 mL/min Normal >60 [facility] Comment on above: Result Comment: Afri can Angolan GFR Calc Performed By: #### L 500.2500, L100.0100 ####[facility] [address] [place], [address] GAP 7 Normal 5-15 [facility] Comment on above: Performed By: #### L 500.2500, L100.0100 ####[facility] [address] [place], [address] GFR/1.73 sq M.predicted among non-blacks MDRD (S/P/Bld) [Vol rate/Area] 64 mL/min/{1.73_m2} Normal >60 [facility] Comment on above: Result Comment: Non- GFR Calc Performed By: #### L 500.2500, L100.0100 ####[facility] [address] [place], [address] Glucose [Mass/Vol] 196 mg/dL High 74-106 [facility] Comment on above: Result Comment: Fast ing Glucose result greater than or equal to 126 mg/dLsuggests DIABETES MELLITUS per A.D.A. criteria. Performed By: #### L 500.2500, L100.0100 ####[facility] [address] [place], [address] Potassium [Moles/Vol] 4.1 mmol/L Normal 3.5-5.1 [facility] Comment on above: Performed By: #### L 500.2500, L100.0100 ####[facility] [address] [place], [address] Sodium [Moles/Vol] 136 mmol/L Normal 136-145 [facility] Comment on above: Performed By: #### L 500.2500, L100.0100 ####[facility] [address] [place], [address] Urea nitrogen [Mass/Vol] 31 mg/dL High 7-18 [facility] Comment on above: Performed By: #### L 500.2500, L100.0100 ####[facility] [address] [place], [address] Bedside Glucoseon 01-21-2023 FINGERSTICK GLU 224 mg/dL High 74-106 [facility] Comment on above: Result Comment: ANI GEMENT OF PATIENT CARE PER NURSING PROTOCOL Performed By: #### L 501.080 ####[facility] [address] [place], [address] FINGERSTICK GLU 177 mg/dL High 74-106 [facility] Comment on above: Result Comment: ANI GEMENT OF PATIENT CARE PER NURSING PROTOCOL Performed By: #### L 501.080 ####[facility] [address] [place], [address] CBC W/Diff, Automatedon 12-31 Absolute Lymph 2.23 X10 3/uL Normal 0.83-4.51 [facility] Comment on above: Performed By: #### L 500.2500, L100.0100 ####[facility] [address] [place], [address] Absolute Neut 6.5 X10 3/uL Normal 2.0-7.7 [facility] Comment on above: Performed By: #### L 500.2500, L100.0100 ####[facility] [address] [place], [address] Basophils/100 WBC (Bld) 0.6 % Normal 0-1 [facility] Comment on above: Performed By: #### L 500.2500, L100.0100 ####[facility] [address] [place], [address] Eosinophils/100 WBC (Bld) 3.8 % Normal 0-5 [facility] Comment on above: Performed By: #### L 500.2500, L100.0100 ####[facility] [address] [place], [address] Erythrocyte distribution width (RBC) [Ratio] 17.5 % High 11.6-14.6 [facility] Comment on above: Performed By: #### L 500.2500, L100.0100 ####[facility] [address] [place], [address] Hematocrit (Bld) [Volume fraction] 30.9 % Low 40-54 [facility] Comment on above: Performed By: #### L 500.2500, L100.0100 ####[facility] [address] [place], [address] Hemoglobin (Bld) [Mass/Vol] 9.3 g/dL Low 13.0-16.5 [facility] Comment on above: Performed By: #### L 500.2500, L100.0100 ####[facility] [address] [place], [address] IG% 0.500 Normal 0.0-0.9 [facility] Comment on above: Result Comment: IG% - Immature Granulocytes (promyelocytes, myelocytes andmetamyelocytes) > 1% indicates that a LEFT SHIFT is Present. Performed By: #### L 500.2500, L100.0100 ####[facility] [address] [place], [address] Lymphocytes/100 WBC (Bld) 21.7 % Normal 19-41 [facility] Comment on above: Performed By: #### L 500.2500, L100.0100 ####[facility] [address] [place], [address] MCH (RBC) [Entitic mass] 23.4 pg Low 27.0-32.0 [facility] Comment on above: Performed By: #### L 500.2500, L100.0100 ####[facility] [address] [place], [address] MCHC (RBC) [Mass/Vol] 30.1 g/dL Low 32-36 [facility] Comment on above: Performed By: #### L 500.2500, L100.0100 ####[facility] [address] [place], [address] MCV (RBC) [Entitic vol] 77.6 fL Low 80-94 [facility] Comment on above: Performed By: #### L 500.2500, L100.0100 ####[facility] [address] [place], [address] Monocytes/100 WBC (Bld) 10.7 % High 0-10 [facility] Comment on above: Performed By: #### L 500.2500, L100.0100 ####[facility] [address] [place], [address] Neutrophils/100 WBC (Bld) 62.7 % Normal 47-70 [facility] Comment on above: Performed By: #### L 500.2500, L100.0100 ####[facility] [address] [place], [address] Nucleated RBC (Bld) [#/Vol] 0 10*3/uL Normal 0-5 [facility] Comment on above: Performed By: #### L 500.2500, L100.0100 ####[facility] [address] [place], [address] Platelet mean volume (Bld) [Entitic vol] 9.8 fL Normal 6.2-12.0 [facility] Comment on above: Performed By: #### L 500.2500, L100.0100 ####[facility] [address] [place], [address] Platelets (Bld) [#/Vol] 273 10*3/uL Normal 150-450 [facility] Comment on above: Performed By: #### L 500.2500, L100.0100 ####[facility] [address] [place], [address] RBC (Bld) [#/Vol] 3.98 10*6/uL Low 4.6-6.2 [facility] Comment on above: Performed By: #### L 500.2500, L100.0100 ####[facility] [address] [place], [address] RDW SD 49.5 fl High 35.1-43.9 [facility] Comment on above: Performed By: #### L 500.2500, L100.0100 ####[facility] [address] [place], [address] WBC (Bld) [#/Vol] 10.3 10*3/uL Normal 4.4-11.0 [facility] Comment on above: Performed By: #### L 500.2500, L100.0100 ####[facility] [address] [place], [address] 36on 01-21-2024 36 Patient called to inform me he is in the hospital and will not be able to make his radiology appointment tomorrow. I told patient I will call and cancel for him and gave him the number to call and reschedule when he is ready. Normal [facility] Bedside Glucoseon 01-21-2024 FINGERSTICK GLU 136 mg/dL High 74-106 [facility] Comment on above: Result Comment: ANI GEMENT OF PATIENT CARE PER NURSING PROTOCOL Performed By: #### L 501.080 ####[facility] [address] [place], [address] FINGERSTICK GLU 151 mg/dL High 74-106 [facility] Comment on above: Result Comment: ANI GEMENT OF PATIENT CARE PER NURSING PROTOCOL Performed By: #### L 501.080 ####[facility] [address] [place], [address] FINGERSTICK GLU 152 mg/dL High 74-106 [facility] Comment on above: Result Comment: ANI GEMENT OF PATIENT CARE PER NURSING PROTOCOL Performed By: #### L 501.080 ####[facility] [facility] [address] [place], [address] FINGERSTICK GLU 126 mg/dL High 74-106 [facility] Comment on above: Result Comment: ANI BRADFORD OF PATIENT CARE PER NURSING PROTOCOL Performed By: #### L 501.080 ####[facility] [address] [place], [address] CTA Chest W/WO Contraston CTA Chest W/WO Contrast Normal [facility] D-Dimer Quantitative (DVT/PE )on 01-21-2024 D-DIMER QUANT 2.48 FEU/ug/m Invalid Interpretation Code 0.27-0.49 [facility] Comment on above: Result Comment: D-Di tania ELEVATED (>0.49): Additional studies and clinicalassessments are indicated to conclude diagnosis of:Deep Vein Thrombosis (DVT) or Pulmonary Embolism (PE)CRITICAL VALUE CALLED TO PDEPWA32/22/24 0323 Hipolito Mitchell.RESULTS READ BACK BY SAME. Performed By: #### L 300.3569 ####[facility] [address] [place], [place], [address] Emergency Department Summary on 01-21-2024 Emergency Department Summary Normal [facility] Ferritinon 01-21-2024 Ferritin [Mass/Vol] 53 ng/mL Normal 26-388 [facility] Comment on above: Performed By: #### L 503.6030, L503.6550 ####[facility] [address] [place], [address] H AND P Exam - Hospitaliston 01-21-2024 H&P Exam - Hospitalist Normal [facility] Hemoglobin A1con 01-21-2024 HbA1c (Bld) [Mass fraction] 8.0 % High 3.8-5.6 [facility] Comment on above: Result Comment: Norm al < 5.7 % Prediabetic 5.7 - 6.4 % Diabetic >or= 6.5 % Please note range changes. Performed By: #### L 501.9913 ####[facility] [address] [place], [address] Iron+Iron Binding Capacityon 01-21-2024 Iron [Mass/Vol] 12 ug/dL Low 65-175 [facility] Comment on above: Performed By: #### L 503.6030, L503.6550 ####[facility] [address] [place], [address] IRON SATURATION 3.5 Low 15.0-55.0 [facility] Comment on above: Performed By: #### L 503.6030, L503.6550 ####[facility] [address] [place], [address] TIBC 347 ug/dL Normal 250-450 [facility] Comment on above: Performed By: #### L 503.6030, L503.6550 ####[facility] [address] [place], [address] Lactic Acidon 01-21-2024 Lactate [Moles/Vol] 1.6 mmol/L Normal 0.4-1.9 [facility] Comment on above: Order Comment: Y Performed By: #### L 503.6005 ####[facility] [address] [place], [address] Legionella Antigen Urineon 1 LEGU Normal [facility] Comment on above: Performed By: #### M 300.4600, M300.4500 ####[facility] [address] [place], [address] RESPIRATORY PANEL MOLECULARo n 01-21-2024 RP PANEL Normal [facility] Comment on above: Performed By: #### M 100.638 ####[facility] [address] [place], [address] Strep pneumoniae Antig(UR,CS F)on 01-21-2024 STPAG Normal [facility] Comment on above: Performed By: #### M 300.6700, M300.4500 ####[facility] [address] [place], [address] Venous Duplex US - Adam Extre mon 01-21-2024 Venous Duplex US - Adam Extrem Normal [facility] 12 Lead EKGon 01-20-2024 12 Lead EKG Normal [facility] BNP,B-Type NATRIURETIC PEPTI Sindy 01-20-2024 Natriuretic peptide B (Bld) [Mass/Vol] 130.8 pg/mL High 0-100 [facility] Comment on above: Performed By: #### L 501.5200, L503.6620 ####[facility] [address] [place], [address] Basic Metabolic Profile (BMP )on 01-20-2024 BUN/CRE 23.4 RATIO High 10-20 [facility] Comment on above: Order Comment: 'TROP ' Serial specimen #1, #2 or #3: 1 Performed By: #### L 501.4020, L500.2500, L100.0100 ####[facility] [address] [place], [address] CA,Total 9.0 mg/dL Normal 8.5-10.1 [facility] Comment on above: Order Comment: 'TROP ' Serial specimen #1, #2 or #3: 1 Performed By: #### L 501.4020, L500.2500, L100.0100 ####[facility] [address] [place], [address] Chloride [Moles/Vol] 107 mmol/L Normal 98-107 [facility] Comment on above: Order Comment: 'TROP ' Serial specimen #1, #2 or #3: 1 Performed By: #### L 501.4020, L500.2500, L100.0100 ####[facility] [address] [place], [address] CO2 [Moles/Vol] 22.0 mmol/L Normal 21.0-32.0 [facility] Comment on above: Order Comment: 'TROP ' Serial specimen #1, #2 or #3: 1 Performed By: #### L 501.4020, L500.2500, L100.0100 ####[facility] [address] [place], [address] Creatinine [Mass/Vol] 1.24 mg/dL Normal 0.70-1.30 [facility] Comment on above: Order Comment: 'TROP ' Serial specimen #1, #2 or #3: 1 Result Comment: The validity of the calculated GFR GFRAA in patients over70 years has not been determined. Clinical correlation isessential. Performed By: #### L 501.4020, L500.2500, L100.0100 ####[facility] [address] [place], [address] ECRCL 90.85 ml/min Normal [facility] Comment on above: Order Comment: 'TROP ' Serial specimen #1, #2 or #3: 1 Performed By: #### L 501.4020, L500.2500, L100.0100 ####[facility] [address] [place], [address] EST GFR - AA 76 mL/min Normal >60 [facility] Comment on above: Order Comment: 'TROP ' Serial specimen #1, #2 or #3: 1 Result Comment: Afri can Angolan GFR Calc Performed By: #### L 501.4020, L500.2500, L100.0100 ####[facility] [address] [place], [address] GAP 6 Normal 5-15 [facility] Comment on above: Order Comment: 'TROP ' Serial specimen #1, #2 or #3: 1 Performed By: #### L 501.4020, L500.2500, L100.0100 ####[facility] [address] [place], [address] GFR/1.73 sq M.predicted among non-blacks MDRD (S/P/Bld) [Vol rate/Area] 63 mL/min/{1.73_m2} Normal >60 [facility] Comment on above: Order Comment: 'TROP ' Serial specimen #1, #2 or #3: 1 Result Comment: Non- GFR Calc Performed By: #### L 501.4020, L500.2500, L100.0100 ####[facility] [address] [place], [address] Glucose [Mass/Vol] 196 mg/dL High 74-106 [facility] Comment on above: Order Comment: 'TROP ' Serial specimen #1, #2 or #3: 1 Result Comment: Fast ing Glucose result greater than or equal to 126 mg/dLsuggests DIABETES MELLITUS per A.D.A. criteria. Performed By: #### L 501.4020, L500.2500, L100.0100 ####[facility] [address] [place], [address] Potassium [Moles/Vol] 4.3 mmol/L Normal 3.5-5.1 [facility] Comment on above: Order Comment: 'TROP ' Serial specimen #1, #2 or #3: 1 Result Comment: Mode rate Hemolysis, Result may be falsely increased. Performed By: #### L 501.4020, L500.2500, L100.0100 ####[facility] [address] [place], [address] Sodium [Moles/Vol] 135 mmol/L Low 136-145 [facility] Comment on above: Order Comment: 'TROP ' Serial specimen #1, #2 or #3: 1 Performed By: #### L 501.4020, L500.2500, L100.0100 ####[facility] [address] [place], [address] Urea nitrogen [Mass/Vol] 29 mg/dL High 7-18 [facility] Comment on above: Order Comment: 'TROP ' Serial specimen #1, #2 or #3: 1 Performed By: #### L 501.4020, L500.2500, L100.0100 ####[facility] [address] [place], [address] CBC W/Diff, Automatedon 10-2 Absolute Lymph 1.71 X10 3/uL Normal 0.83-4.51 [facility] Comment on above: Performed By: #### L 501.4020, L500.2500, L100.0100 ####[facility] [address] [place], [address] Absolute Neut 7.0 X10 3/uL Normal 2.0-7.7 [facility] Comment on above: Performed By: #### L 501.4020, L500.2500, L100.0100 ####[facility] [address] [place], [address] Basophils/100 WBC (Bld) 0.7 % Normal 0-1 [facility] Comment on above: Performed By: #### L 501.4020, L500.2500, L100.0100 ####[facility] [address] [place], [address] Eosinophils/100 WBC (Bld) 2.9 % Normal 0-5 [facility] Comment on above: Performed By: #### L 501.4020, L500.2500, L100.0100 ####[facility] [address] [place], [address] Erythrocyte distribution width (RBC) [Ratio] 17.1 % High 11.6-14.6 [facility] Comment on above: Performed By: #### L 501.4020, L500.2500, L100.0100 ####[facility] [address] [place], [address] Hematocrit (Bld) [Volume fraction] 31.1 % Low 40-54 [facility] Comment on above: Performed By: #### L 501.4020, L500.2500, L100.0100 ####[facility] [address] [place], [address] Hemoglobin (Bld) [Mass/Vol] 9.5 g/dL Low 13.0-16.5 [facility] Comment on above: Performed By: #### L 501.4020, L500.2500, L100.0100 ####[facility] [address] [place], [address] IG% 0.500 Normal 0.0-0.9 [facility] Comment on above: Result Comment: IG% - Immature Granulocytes (promyelocytes, myelocytes andmetamyelocytes) > 1% indicates that a LEFT SHIFT is Present. Performed By: #### L 501.4020, L500.2500, L100.0100 ####[facility] [address] [place], [address] Lymphocytes/100 WBC (Bld) 16.8 % Low 19-41 [facility] Comment on above: Performed By: #### L 501.4020, L500.2500, L100.0100 ####[facility] [address] [place], [address] MCH (RBC) [Entitic mass] 23.4 pg Low 27.0-32.0 [facility] Comment on above: Performed By: #### L 501.4020, L500.2500, L100.0100 ####[facility] [address] [place], [address] MCHC (RBC) [Mass/Vol] 30.5 g/dL Low 32-36 [facility] Comment on above: Performed By: #### L 501.4020, L500.2500, L100.0100 ####[facility] [address] [place], [address] MCV (RBC) [Entitic vol] 76.6 fL Low 80-94 [facility] Comment on above: Performed By: #### L 501.4020, L500.2500, L100.0100 ####[facility] [address] [place], [address] Monocytes/100 WBC (Bld) 10.6 % High 0-10 [facility] Comment on above: Performed By: #### L 501.4020, L500.2500, L100.0100 ####[facility] [address] [place], [address] Neutrophils/100 WBC (Bld) 68.5 % Normal 47-70 [facility] Comment on above: Performed By: #### L 501.4020, L500.2500, L100.0100 ####[facility] [address] [place], [address] Nucleated RBC (Bld) [#/Vol] 0 10*3/uL Normal 0-5 [facility] Comment on above: Performed By: #### L 501.4020, L500.2500, L100.0100 ####[facility] [address] [place], [address] Platelet mean volume (Bld) [Entitic vol] 9.5 fL Normal 6.2-12.0 [facility] Comment on above: Performed By: #### L 501.4020, L500.2500, L100.0100 ####[facility] [address] [place], [address] Platelets (Bld) [#/Vol] 267 10*3/uL Normal 150-450 [facility] Comment on above: Performed By: #### L 501.4020, L500.2500, L100.0100 ####[facility] [address] [place], [address] RBC (Bld) [#/Vol] 4.06 10*6/uL Low 4.6-6.2 [facility] Comment on above: Performed By: #### L 501.4020, L500.2500, L100.0100 ####[facility] [address] [place], [address] RDW SD 47.4 fl High 35.1-43.9 [facility] Comment on above: Performed By: #### L 501.4020, L500.2500, L100.0100 ####[facility] [address] [place], [address] WBC (Bld) [#/Vol] 10.2 10*3/uL Normal 4.4-11.0 [facility] Comment on above: Performed By: #### L 501.4020, L500.2500, L100.0100 ####[facility] [address] [place], [address] Chest PA and Lateralon 01-19 Chest PA and Lateral Normal [facility] L501.4020on 01-20-2024 TROPONIN-I HS 24 pg/mL Normal 3.0-78.0 [facility] Comment on above: Order Comment: 'TROP ' Serial specimen #1, #2 or #3: 1 Result Comment: Plea se Note: New Test Units and Gender Specific Reference Ranges. For more information see Policy Stat Procedure Lennon High Sensitivity Troponin (TNIH) and attachments. Performed By: #### L 501.4020, L500.2500, L100.0100 ####[facility] [address] [place], [address] M100.678on 01-20-2024 M100.678 Pending SARS-CoV-2 (COVID 19) Negative INFLUENZA A Negative INFLUENZA B Negative RSV PCR Negative Normal [facility] Comment on above: Performed By: #### M 100.678 ####[facility] [address] [place], [address] Magnesiumon 01-20-2024 Magnesium [Mass/Vol] 1.7 mg/dL Normal 1.6-2.6 [facility] Comment on above: Result Comment: Mode rate Hemolysis, Result may be falsely increased. Performed By: #### L 501.5200, L503.6620 ####[facility] [address] [place], [place], [id number] Office Visit Reporton 2023 Office Visit Report Normal [facility] 36on 01-15-2024 36 Called patient to inform him of his appointment for CTA ordered by Dr. Culp. Patient verbalized understanding appointment schduled for 01/22/2024 at 1045 [facility] Patient instructed to stop eating 4 hours prior to testing and to drink 16oz water 1 hour prior. Patient questioned if we received imaging from [facility]. Will follow up to confirm they are uploaded to PACS. Normal [facility] 36on 01-10-2024 36 [id number] submitted through ev[employer] phone call [facility] CBC W/Diff, Automatedon 12-30 Absolute Lymph 1.87 X10 3/uL Normal 0.83-4.51 [facility] Comment on above: Order Comment: Order Date: 01/10/24Order Info: [id number] - CBCDOrder Info: 4679-7 - RETIC Performed By: #### L 503.6150, L100.9950, L503.0105, L503.6550, L503.6075, L100.0100, L506.0250 ####[facility] [address] [place], [place], [address] Absolute Neut 5.7 X10 3/uL Normal 2.0-7.7 [facility] Comment on above: Order Comment: Order Date: 01/10/24Order Info: [id number] - CBCDOrder Info: 4679-7 - RETIC Performed By: #### L 503.6150, L100.9950, L503.0105, L503.6550, L503.6075, L100.0100, L506.0250 ####[facility] [address] [place], [address] Basophils/100 WBC (Bld) 0.8 % Normal 0-1 [facility] Comment on above: Order Comment: Order Date: 01/10/24Order Info: 018- - CBCDOrder Info: [id number] - RETIC Performed By: #### L 503.6150, L100.9950, L503.0105, L503.6550, L503.6075, L100.0100, L506.0250 ####[facility] [address] [place], [address] Eosinophils/100 WBC (Bld) 2.6 % Normal 0-5 [facility] Comment on above: Order Comment: Order Date: 01/10/24Order Info: [id number] - CBCDOrder Info: [id number] - RETIC Performed By: #### L 503.6150, L100.9950, L503.0105, L503.6550, L503.6075, L100.0100, L506.0250 ####[facility] [address] [place], [address] Erythrocyte distribution width (RBC) [Ratio] 17.3 % High 11.6-14.6 [facility] Comment on above: Order Comment: Order Date: 01/10/24Order Info: [id number] - CBCDOrder Info: 4679-7 - RETIC Performed By: #### L 503.6150, L100.9950, L503.0105, L503.6550, L503.6075, L100.0100, L506.0250 ####[facility] [address] [place], [address] Hematocrit (Bld) [Volume fraction] 37.0 % Low 40-54 [facility] Comment on above: Order Comment: Order Date: 01/10/24Order Info: 018- - CBCDOrder Info: 4679-7 - RETIC Performed By: #### L 503.6150, L100.9950, L503.0105, L503.6550, L503.6075, L100.0100, L506.0250 ####[facility] [address] [place], [address] Hemoglobin (Bld) [Mass/Vol] 10.7 g/dL Low 13.0-16.5 [facility] Comment on above: Order Comment: Order Date: 01/10/24Order Info: 018- - CBCDOrder Info: [id number] - RETIC Performed By: #### L 503.6150, L100.9950, L503.0105, L503.6550, L503.6075, L100.0100, L506.0250 ####[facility] [address] [place], [address] IG% 0.300 Normal 0.0-0.9 [facility] Comment on above: Order Comment: Order Date: 01/10/24Order Info: 018- - CBCDOrder Info: 4679-7 - RETIC Result Comment: IG% - Immature Granulocytes (promyelocytes, myelocytes andmetamyelocytes) > 1% indicates that a LEFT SHIFT is Present. Performed By: #### L 503.6150, L100.9950, L503.0105, L503.6550, L503.6075, L100.0100, L506.0250 ####[facility] [address] [place], [place], [phone] Lymphocytes/100 WBC (Bld) 21.4 % Normal 19-41 [facility] Comment on above: Order Comment: Order Date: 01/10/24Order Info: 01806-30 - CBCDOrder Info: 4679-7 - RETIC Performed By: #### L 503.6150, L100.9950, L503.0105, L503.6550, L503.6075, L100.0100, L506.0250 ####[facility] [address] [place], [place], [phone] MCH (RBC) [Entitic mass] 22.8 pg Low 27.0-32.0 [facility] Comment on above: Order Comment: Order Date: 01/10/24Order Info: 018- - CBCDOrder Info: 4679-7 - RETIC Performed By: #### L 503.6150, L100.9950, L503.0105, L503.6550, L503.6075, L100.0100, L506.0250 ####[facility] [address] [place], [address] MCHC (RBC) [Mass/Vol] 28.9 g/dL Low 32-36 [facility] Comment on above: Order Comment: Order Date: 01/10/24Order Info: 01806-30 - CBCDOrder Info: 4679-7 - RETIC Performed By: #### L 503.6150, L100.9950, L503.0105, L503.6550, L503.6075, L100.0100, L506.0250 ####[facility] [address] [place], [address] MCV (RBC) [Entitic vol] 78.7 fL Low 80-94 [facility] Comment on above: Order Comment: Order Date: 01/10/24Order Info: 018- - CBCDOrder Info: 4679-7 - RETIC Performed By: #### L 503.6150, L100.9950, L503.0105, L503.6550, L503.6075, L100.0100, L506.0250 ####[facility] [address] [place], [address] Monocytes/100 WBC (Bld) 9.9 % Normal 0-10 [facility] Comment on above: Order Comment: Order Date: 01/10/24Order Info: 0184- - CBCDOrder Info: 4679-7 - RETIC Performed By: #### L 503.6150, L100.9950, L503.0105, L503.6550, L503.6075, L100.0100, L506.0250 ####[facility] [address] [place], [address] Neutrophils/100 WBC (Bld) 65.0 % Normal 47-70 [facility] Comment on above: Order Comment: Order Date: 01/10/24Order Info: 0184-1 - CBCDOrder Info: 4679-7 - RETIC Performed By: #### L 503.6150, L100.9950, L503.0105, L503.6550, L503.6075, L100.0100, L506.0250 ####[facility] [address] [place], [address] Nucleated RBC (Bld) [#/Vol] 0 10*3/uL Normal 0-5 [facility] Comment on above: Order Comment: Order Date: 01/10/24Order Info: 0184- - CBCDOrder Info: 4679-7 - RETIC Performed By: #### L 503.6150, L100.9950, L503.0105, L503.6550, L503.6075, L100.0100, L506.0250 ####[facility] [address] [place], [address] Platelet mean volume (Bld) [Entitic vol] 10.2 fL Normal 6.2-12.0 [facility] Comment on above: Order Comment: Order Date: 01/10/24Order Info: 0184-1 - CBCDOrder Info: 4679-7 - RETIC Performed By: #### L 503.6150, L100.9950, L503.0105, L503.6550, L503.6075, L100.0100, L506.0250 ####[facility] [address] [place], [address] Platelets (Bld) [#/Vol] 306 10*3/uL Normal 150-450 [facility] Comment on above: Order Comment: Order Date: 01/10/24Order Info: 018- - CBCDOrder Info: 4679-7 - RETIC Performed By: #### L 503.6150, L100.9950, L503.0105, L503.6550, L503.6075, L100.0100, L506.0250 ####[facility] [address] [place], [address] RBC (Bld) [#/Vol] 4.70 10*6/uL Normal 4.6-6.2 [facility] Comment on above: Order Comment: Order Date: 01/10/24Order Info: 183- - CBCDOrder Info: 4679-7 - RETIC Performed By: #### L 503.6150, L100.9950, L503.0105, L503.6550, L503.6075, L100.0100, L506.0250 ####[facility] [address] [place], [address] RDW SD 49.7 fl High 35.1-43.9 [facility] Comment on above: Order Comment: Order Date: 01/10/24Order Info: 018- - CBCDOrder Info: 4679-7 - RETIC Performed By: #### L 503.6150, L100.9950, L503.0105, L503.6550, L503.6075, L100.0100, L506.0250 ####[facility] [address] [place], [address] WBC (Bld) [#/Vol] 8.7 10*3/uL Normal 4.4-11.0 [facility] Comment on above: Order Comment: Order Date: 01/10/24Order Info: 018- - CBCDOrder Info: 4679-7 - RETIC Performed By: #### L 503.6150, L100.9950, L503.0105, L503.6550, L503.6075, L100.0100, L506.0250 ####[facility] [address] [place], [place], [address] Ferritinon 01-10-2024 Ferritin [Mass/Vol] 28 ng/mL Normal 26-388 [facility] Comment on above: Order Comment: Order Date: 01/10/24Order Info: 2500-7 - TIBCOrder Info: 2498-4 - FEOrder Info: 227-4 - FEROrder Info: 228-8 - FOLSN Performed By: #### L 503.6150, L100.9950, L503.0105, L503.6550, L503.6075, L100.0100, L506.0250 ####[facility] [address] [place], [place], [address] Folates, (Folic Acid)on 12-30 FOLATES 5.30 ng/mL Normal 3.1-55.4 [facility] Comment on above: Order Comment: Order Date: 01/10/24Order Info: 2499-09 - TIBCOrder Info: 2498-4 - FEOrder Info: 2275-07 - FEROrder Info: 2283-8 - FOLSN Performed By: #### L 503.6150, L100.9950, L503.0105, L503.6550, L503.6075, L100.0100, L506.0250 ####[facility] [address] [place], [place], [address] Ironon 01-10-2024 Iron [Mass/Vol] 31 ug/dL Low 65-175 [facility] Comment on above: Order Comment: Order Date: 01/10/24Order Info: 2499-7 - TIBCOrder Info: 2498-4 - FEOrder Info: 22709-02 - FEROrder Info: 228-8 - FOLSN Performed By: #### L 503.6150, L100.9950, L503.0105, L503.6550, L503.6075, L100.0100, L506.0250 ####[facility] [address] [place], [place], [phone] Iron Binding Capacity,Totalo n 01-10-2024 TIBC 445 ug/dL Normal 250-450 [facility] Comment on above: Order Comment: Order Date: 01/10/24Order Info: 2500-7 - TIBCOrder Info: 2498-4 - FEOrder Info: 2276-4 - FEROrder Info: 2284-8 - FOLSN Performed By: #### L 503.6150, L100.9950, L503.0105, L503.6550, L503.6075, L100.0100, L506.0250 ####[facility] [address] [place], [place], [phone] Retic Panelon 01-10-2024 IM RET FRACTION 26.40 High 3.00-15.90 [facility] Comment on above: Order Comment: Order Date: 01/10/24Order Info: 018- - CBCDOrder Info: 4679-7 - RETIC Performed By: #### L 503.6150, L100.9950, L503.0105, L503.6550, L503.6075, L100.0100, L506.0250 ####[facility] [address] [place], [place], [phone] RET-HE 22.0 pg Low 30-35 [facility] Comment on above: Order Comment: Order Date: 01/10/24Order Info: 018- - CBCDOrder Info: 4679-7 - RETIC Performed By: #### L 503.6150, L100.9950, L503.0105, L503.6550, L503.6075, L100.0100, L506.0250 ####[facility] [address] [place], [place], [phone] Retic Count 2.36 High 0.5-1.5 [facility] Comment on above: Order Comment: Order Date: 01/10/24Order Info: 018- - CBCDOrder Info: 4679-7 - RETIC Performed By: #### L 503.6150, L100.9950, L503.0105, L503.6550, L503.6075, L100.0100, L506.0250 ####[facility] [address] [place], [address] Vitamin B12on 01-10-2024 Cobalamin (Vitamin B12) [Mass/Vol] 510 pg/mL Normal 211-911 [facility] Comment on above: Order Comment: Order Date: 01/10/24Order Info: 2131-12 - B12 Performed By: #### L 503.6150, L100.9950, L503.0105, L503.6550, L503.6075, L100.0100, L506.0250 ####[facility] [address] [place], [place], [address] Office Visiton 01-06-2024 Follow-up visit [id number] Krunal Leos 1965 M Date Provider Department Center 01/06/2024 [id number] CULP [facility] NRO None No family history on file Level of Service:80074 [place] OFFICE/OUTPATIENT ESTABLISHED MOD MDM 30 MIN Reason for Visit and Comments: New Patient [542] - New stroke 10/02, multiple mini strokes since. No current deficits per patient. Normal [facility] Progress Noteon 01-06-2024 Progress Note History of Present Illness: 58 yo man here for fu stroke and bilateral ICA stenosis. He originally presented 09/2023 for left hemiparesis and was [facility] from [facility]. He was found to have [...] episode of left hemiparesis. He went to [facility] and was found to have increased stroke burden of the right hemisphere. Vascular surgery was consulted and no surgical procedure was recommended. He had a 3rd event of left hemiparesis the following week and a CT was done at [facility]. At that time clopidogrel was added (in addition to ASA and Eliquis). The patient returned to normal and was discharged from the ED to home. 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 He is a nonsmoker. He does [...] 06, 2023., Disp: 30 tablet, Rfl: 0 HYDROcodone-acetaminoph en (Gifford) 5-325 MG tablet, Take 1 tablet by [...] , Rfl: ergocalciferol (Vitamin D2) 1.25 MG (73389 UT) capsule, Take 1 capsule by mouth [...] Negative. Respirato (more content not included)... Normal [facility] Stress Reporton 01-01-2024 Stress Report Normal [facility] Pulmonary Visit Reporton Pulmonary Visit Report Normal [facility] CBC panel Auto (Bld)Ordered By: Russel Sanchez on 10-05-2023 Erythrocyte distribution width (RBC) [Ratio] 17.7 % High 11.5 - 15.0 % [facility] Hematocrit (Bld) [Volume fraction] 36.7 % Low 40.0 - 52.0 % [facility] Hemoglobin (Bld) [Mass/Vol] 11.3 g/dL Low 13.0 - 18.0 g/dL [facility] Interpretation and review of laboratory results Abnormal [facility] MCH (RBC) [Entitic mass] 23.3 pg Low 26.0 - 34.0 pg [facility] MCHC (RBC) [Mass/Vol] 30.8 % 30.5 - 36.0 % [facility] MCV (RBC) [Entitic vol] 75.7 fL Low 77.0 - 99.0 fL [facility] Platelet mean volume (Bld) [Entitic vol] 10.1 fL 9.0 - 12.7 fL [facility] [place] Platelets (Bld) [#/Vol] 221 10*3/uL 140 - 440 10*3/uL [facility] RBC (Bld) [#/Vol] 4.85 10*6/uL 4.40 - 5.9 0 10*6/uL [facility] WBC (Bld) [#/Vol] 9.9 10*3/uL 3.6 - 10.7 10*3/uL [facility] Comprehensive metabolic 1998 panelon 10-05-2023 Albumin [Mass/Vol] 4.1 g/dL 3.5 - 5.0 g/dL [facility] ALP [Catalytic activity/Vol] 101 U/L 38 - 126 U/L [facility] ALT [Catalytic activity/Vol] 21 U/L 0 - 49 U/L [facility] Anion gap [Moles/Vol] 12 mmol/L 3 - 13 mmol/L [facility] AST [Catalytic activity/Vol] 29 U/L 15 - 46 U/L [facility] Bilirubin [Mass/Vol] 1.2 mg/dL 0.2 - 1 .3 mg/dL [facility] Calcium [Mass/Vol] 9.0 mg/dL 8.4 - 10. 4 mg/dL [facility] Chloride [Moles/Vol] 102 mmol/L 98 - 10 7 mmol/L [facility] CO2 [Moles/Vol] 20 mmol/L Low 22 - 30 mmol/L [facility] Creatinine [Mass/Vol] 0.89 mg/dL 0.66 - 1.25 mg/dL [facility] GFR/1.73 sq M.predicted MDRD (S/P/Bld) [Vol rate/Area] - PINF [facility] Comment on above: Calculation based on the Chronic Kidney Disease Epidemiology Collaboration (CKD-EPI) equation refit without adjustment for race Glucose [Mass/Vol] 217 mg/dL High 70 - 100 mg/dL [facility] Interpretation and review of laboratory results Abnormal [facility] Potassium [Moles/Vol] 4.3 mmol/L 3.5 - 5.1 mmol/L [facility] Protein [Mass/Vol] 8.0 g/dL 6.3 - 8.2 g/dL [facility] Sodium [Moles/Vol] 134 mmol/L Low 135 - 145 mmol/L [facility] Urea nitrogen [Mass/Vol] 20 mg/dL 9 - 20 mg/dL [facility] Laboratory - Chemistry and C hemistry - challengeon 10-05-2023 Glucose [Mass/Vol] 215 mg/dL High 70 - 100 mg/dL [facility] Comment on above: Caregiver Notified; Glucose [Mass/Vol] 226 mg/dL High 70 - 100 mg/dL [facility] Comment on above: Caregiver Notified; No Panel InformationOrdered By: Lisa Fernandez on 10-05-2023 Heart Rate 77 bpm [facility] Work Phone: P [place] 12 degrees [facility] Work Phone: [phone] [place] Interval 160 ms [facility] Work Phone: [phone] QRS [place] -16 degrees [facility] Work Phone: QRSD Interval 113 ms [facility] Work Phone: QT Interval 401 ms [facility] Work Phone: QTC Interval 453 ms [facility] Work Phone: T Wave [place] 16 degrees [facility] Work Phone: [facility] Work Phone: No Panel Informationon 10-04 Sinus rhythm Left ventricular hypertrophy Anterior Q waves, possibly due to LVH Electronically Signed On 10-05-2023 14:51:39 EDT by Lisa Fernandez CV Lisa Patton MD - 10/05/2023 IMPRESSION: Sinus rhythm Left ventricular hypertrophy Anterior Q waves, possibly due to LVH Electronically Signed On 10-05-2023 14:51:39 EDT by Lisa Fernandez [facility] Interpretation and review of laboratory results Abnormal [facility] Performed by: [facility], [address] [place] [address] CLIA ID: [id number] [facility] [place] [facility] Interpretation and review of laboratory results Abnormal [facility] Performed by: [facility], [address] [place] [address] CLIA ID: [id number] [facility] [place] Basic metabolic 1998 panelon 10-04-2023 Anion gap [Moles/Vol] 11 mmol/L 3 - 13 mmol/L [facility] [place] Calcium [Mass/Vol] 9.3 mg/dL 8.4 - 10. 4 mg/dL [facility] Chloride [Moles/Vol] 105 mmol/L 98 - 10 7 mmol/L [facility] [place] CO2 [Moles/Vol] 19 mmol/L Low 22 - 30 mmol/L [facility] Creatinine [Mass/Vol] 0.77 mg/dL 0.66 - 1.25 mg/dL [facility] GFR/1.73 sq M.predicted MDRD (S/P/Bld) [Vol rate/Area] - PINF [facility] Comment on above: Calculation based on the Chronic Kidney Disease Epidemiology Collaboration (CKD-EPI) equation refit without adjustment for race Glucose [Mass/Vol] 177 mg/dL High 70 - 100 mg/dL [facility] Interpretation and review of laboratory results Abnormal [facility] Potassium [Moles/Vol] 4.4 mmol/L 3.5 - 5.1 mmol/L [facility] Sodium [Moles/Vol] 134 mmol/L Low 135 - 145 mmol/L [facility] Urea nitrogen [Mass/Vol] 17 mg/dL 9 - 20 mg/dL [facility] CBC panel Auto (Bld)Ordered By: Eduin Brar on 10-04-2023 Erythrocyte distribution width (RBC) [Ratio] 17.9 % High 11.5 - 15.0 % [facility] Hematocrit (Bld) [Volume fraction] 39.6 % Low 40.0 - 52.0 % [facility] Hemoglobin (Bld) [Mass/Vol] 11.3 g/dL Low 13.0 - 18.0 g/dL [facility] Interpretation and review of laboratory results Abnormal [facility] MCH (RBC) [Entitic mass] 23.7 pg Low 26.0 - 34.0 pg [facility] MCHC (RBC) [Mass/Vol] 28.5 % Low 30.5 - 36.0 % [facility] MCV (RBC) [Entitic vol] 83.2 fL 77.0 - 99.0 fL [facility] Platelet mean volume (Bld) [Entitic vol] 9.5 fL 9.0 - 12.7 fL [facility] Platelets (Bld) [#/Vol] 201 10*3/uL 140 - 440 10*3/uL [facility] RBC (Bld) [#/Vol] 4.76 10*6/uL 4.40 - 5.9 0 10*6/uL [facility] WBC (Bld) [#/Vol] 8.3 10*3/uL 3.6 - 10.7 10*3/uL [facility] Laboratory - Chemistry and C hemistry - challengeon 10-04-2023 Glucose [Mass/Vol] 221 mg/dL High 70 - 100 mg/dL [facility] Glucose [Mass/Vol] 157 mg/dL High 70 - 100 mg/dL [facility] Troponin I.cardiac [Mass/Vol] ng/mL [facility] - 0.034 ng/mL [facility] Glucose [Mass/Vol] 162 mg/dL High 70 - 100 mg/dL [facility] Troponin I.cardiac [Mass/Vol] ng/mL [facility] - 0.034 ng/mL [facility] Glucose [Mass/Vol] 193 mg/dL High 70 - 100 mg/dL [facility] Average glucose Estimated from glycated hemoglobin (Bld) [Mass/Vol] 177 mg/dL [facility] - Coagulationon 0 10-04-2023 aPTT Coag (PPP) [Time] 27.3 s 20.0 - 30.5 s [facility] INR Coag (PPP) [Relative time] 1.0 {INR} 0.9 - 1.1 [facility] Comment on above: Recommended Anticoag ulant [...] Coag (Bld) [Time] 10.9 s 9.0 - 12.0 s [facility] - Hematology and Cell countson 10-04-2023 HbA1c (Bld) [Mass fraction] 7.8 % High [facility] - 5.7 % [facility] Comment on above: Normal less than 5.7 % Prediabetes 5.7% to 6.4% Diabetes 6.5% or higher --HgbA1C levels may not be accurate in patients who have renal disease, received recent blood transfusions, are anemic, or who have dyshemoglobinemia. Lipid 1996 panelon 4 Cholesterol [Mass/Vol] 147 mg/dL [facility] - 200 mg/dL [facility] Cholesterol in HDL [Mass/Vol] 27 mg/dL Low 40 - 60 mg/dL [facility] Cholesterol in LDL [Mass/Vol] 41 mg/dL 0 - <100 [facility] Cholesterol.total/Arsenio sterol in HDL [Mass ratio] 5 {ratio} [facility] [place] Comment on above: Ref Range: < 3 Low Risk for CHD 3-6 Mod Risk for CHD > 6 High Risk for CHD Interpretation and review of laboratory results Abnormal [facility] [place] Triglyceride [Mass/Vol] 397 mg/dL High NINF - 150 mg/dL [facility] [place] No Panel Informationon 10-03 Interpretation and review of laboratory results Abnormal [facility] [place] Performed by: [facility], [address] [place] [address] CLIA ID: [id number] [facility] [place] [facility] [place] Interpretation and review of laboratory results Abnormal [facility] [place] Performed by: [facility], [address] [place] [address] CLIA ID: [id number] [facility] [place] [facility] [place] Interpretation and review of laboratory results Normal [facility] [place] [facility] [place] Addendum by Analia Zamudio MD on 10/04/2023 [...] and heterogeneous plaque. Subclavian has turbulent flow. 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 During the study longitudinal and transverse views were obtained. Pulsed wave doppler was performed. The exam was performed with the patient in the supine position. Overall the study quality was adequate. Study was technically difficult due to: acoustic shadowing and body habitus. [facility] [place] Interpretation and review of laboratory results Abnormal [facility] Performed by: [facility], [address] [place] [address] CLIA ID: [id number] [facility] Interpretation and review of laboratory results Abnormal [facility] Performed by: [facility], [address] [place] [address] CLIA ID: [id number] [facility] Interpretation and review of laboratory results Abnormal [facility] No Panel InformationOrdered By: Analia Zamudio on 10-04-2023 Left CCA dist EDV 36.3 cm/s [facility] Work Phone: [phone] Left CCA dist PSV 252.1 cm/s [facility] Work Phone: [phone] Left CCA mid EDV 40.30 cm/s [facility] Work Phone: [phone] Left CCA mid PSV 257.50 cm/s [...] Phone: Right CCA prox PSV 161.8 cm/s [facility] Work Phone: Right ICA dist EDV 24.7 cm/s [facility] Work Phone: Right ICA dist PSV 78.9 cm/s [facility] Work Phone: Right ICA mid EDV 30.1 cm/s [facility] Work Phone: Right ICA mid PSV 97.5 cm/s [facility] Work Phone: Right ICA prox EDV 16.0 cm/s [facility] Work Phone: Right ICA prox PSV 74.3 cm/s [facility] Work Phone: Right ICA/CCA PSV 0.90 [facility] Work Phone: Right subclavian mid EDV 9.7 cm/s [facility] Work Phone: Right subclavian mid PSV 66.0 cm/s [facility] Work Phone: Right vertebral EDV 12.00 cm/s [facility] Work Phone: Right vertebral PSV 47.5 cm/s [facility] Work Phone: Troponin I.cardiac [Mass/Vol ]on 10-04-2023 Interpretation and review of laboratory results Normal [facility] [place] Patients with high levels of Biotin oral intake (ie >5 mg/day) may have falsely decreased Troponin levels. [facility] [employer] [place] Interpretation and review of laboratory results Normal [facility] [place] Patients with high levels of Biotin oral intake (ie >5 mg/day) may have falsely decreased Troponin levels. [facility] [place] .Auto Diffon 10-03-2023 Basophil, Absolute 0.1 10 3/mcL Normal 0.0-0.2 [facility] ([place]) Comment on above: Performed By: #### M G, GFR, ADIFF, ANEU, CBC, CMP ####[address] [place], [place] [address] Basophils/100 WBC (Bld) 1.0 % Normal 0.0-2.5 A [facility] ([place]) Comment on above: Performed By: #### M G, GFR, ADIFF, ANEU, CBC, CMP ####[address] [place], [place] [address] Eosinophil, Absolute 0.4 10 3/mcL Normal 0.0-0.4 [facility] ([place]) Comment on above: Performed By: #### M G, GFR, ADIFF, ANEU, CBC, CMP ####[address] [place], [place] [address] Eosinophils/100 WBC (Bld) 5.1 % Normal 0.0-7.0 [facility] ([place]) Comment on above: Performed By: #### M G, GFR, ADIFF, ANEU, CBC, CMP ####[address] [place], [place] [address] Lymphocyte, Absolute 1.6 10 3/mcL Normal 0.8-3.9 [facility] ([place]) Comment on above: Performed By: #### M G, GFR, ADIFF, ANEU, CBC, CMP ####[address] [place], [place] [address] Lymphocytes/100 WBC (Bld) 20.4 % Normal 10.0-50.0 [facility] ([place]) Comment on above: Performed By: #### M G, GFR, ADIFF, ANEU, CBC, CMP ####[address] [place], [place] [address] Monocyte, Absolute 0.9 10 3/mcL Normal 0.2-1.0 [facility] ([place]) Comment on above: Performed By: #### M G, GFR, ADIFF, ANEU, CBC, CMP ####[address] [place], [place] [address] Monocytes/100 WBC (Bld) 11.5 % Normal 1.7-13.0 [facility] ([place]) Comment on above: Performed By: #### M G, GFR, ADIFF, ANEU, CBC, CMP ####[address] [place], [place] [address] Neutrophils/100 WBC (Bld) 62.0 % Normal 37.0-80.0 [facility] ([place]) Comment on above: Performed By: #### M G, GFR, ADIFF, ANEU, CBC, CMP ####[address] [place], [place] [address] .GFRon 10-03-2023 GFR Non- 72 ml/min/1.73sqm Normal [facility] ([place]) Comment on above: Result Comment: GFR Population [...] GFR, ADIFF, ANEU, CBC, CMP ####Jarred [address] [place], [place] [address] GFR 87 ml/min/1.73sqm Normal [facility] ([place]) Comment on above: Result Comment: GFR Population [...] GFR, ADIFF, ANEU, CBC, CMP ####Jarred [address] [place], [place] [address] .NEUABSon 10-03-2023 Neutrophil, Absolute 4.7 10 3/mcL Normal 2.9-6.2 [facility] ([place]) Comment on above: Performed By: #### M G, GFR, ADIFF, ANEU, CBC, CMP ####Jarred [address] [place], [place] [address] CBCon 10-03-2023 Erythrocyte distribution width (RBC) [Ratio] 18.3 % High 11.5-14.5 [facility] ([place]) Comment on above: Performed By: #### M G, GFR, ADIFF, ANEU, CBC, CMP ####Jarred [address] [place], [place] [address] Hematocrit (Bld) [Volume fraction] 32.0 % Low 42.0-52.0 [facility] ([place]) Comment on above: Performed By: #### M G, GFR, ADIFF, ANEU, CBC, CMP ####Jarred [address] [place], [place] [address] Hgb 10.5 G/dL Low 14.0-18.0 [facility] ([place]) Comment on above: Performed By: #### M G, GFR, ADIFF, ANEU, CBC, CMP ####Jarred [address] [place], [place] [address] MCH (RBC) [Entitic mass] 24.5 pg Low 27.0-31.2 [facility] ([place]) Comment on above: Performed By: #### M G, GFR, ADIFF, ANEU, CBC, CMP ####[address] [place], [place] [address] MCHC 32.9 G/dL Normal 31.8-35.4 [facility] ([place]) Comment on above: Performed By: #### M G, GFR, ADIFF, ANEU, CBC, CMP ####Jarred [address] [place], [place] [address] MCV (RBC) [Entitic vol] 74.3 fL Low 80.0-94.0 [facility] ([place]) Comment on above: Performed By: #### M G, GFR, ADIFF, ANEU, CBC, CMP ####[address] [place], [place] [address] Platelet 211 10 3/mcL Normal 130-400 [facility] ([place]) Comment on above: Performed By: #### M G, GFR, ADIFF, ANEU, CBC, CMP ####[address] [place], [place] [address] Platelet mean volume (Bld) [Entitic vol] 7.6 fL Normal 7.4-10.4 [facility] ([place] Comment on above: Performed By: #### M G, GFR, ADIFF, ANEU, CBC, CMP ####[address] [place], [place] [address] RBC 4.31 10 6/mcL Normal 4.04-6.13 [facility] ([place] Comment on above: Performed By: #### M G, GFR, ADIFF, ANEU, CBC, CMP ####[address] [place], [place] [address] WBC 7.6 10 3/mcL Normal 4.6-10.8 [facility] ([place]) Comment on above: Performed By: #### M G, GFR, ADIFF, ANEU, CBC, CMP ####[address] [place], [place] [address] CMPon 10-03-2023 Albumin Level 3.1 G/dL Low 3.4-4.8 [facility] ([place]) Comment on above: Performed By: #### M G, GFR, ADIFF, ANEU, CBC, CMP ####[address] [place], [place] [address] Albumin/Globulin [Mass ratio] 0.8 {ratio} Low 1.1-2.5 [facility] ([place]) Comment on above: Performed By: #### M Mark, GFR, ADIFF, ANEU, CBC, CMP ####[address] [place], [place] [address] ALP [Catalytic activity/Vol] 93 U/L Normal 40-135 [facility] ([place]) Comment on above: Performed By: #### M Mark, GFR, ADIFF, ANEU, CBC, CMP ####[address] [place], [place] [address] ALT [Catalytic activity/Vol] 20 U/L Normal 16-63 [facility] ([place]) Comment on above: Performed By: #### M G, GFR, ADIFF, ANEU, CBC, CMP ####[address] [place], [place] [address] AST [Catalytic activity/Vol] 15 U/L Normal 10-40 [facility] ([place] Comment on above: Performed By: #### M G, GFR, ADIFF, ANEU, CBC, CMP ####[address] [place], [place] [address] Bili Total 0.5 mg/dL Normal 0.2-1.0 [facility] ([place]) Comment on above: Result Comment: Use of this assay is not recommended for patients undergoing treatment with eltrombopag due to the potential for falsely elevated results. Performed By: #### M Mark, GFR, ADIFF, ANEU, CBC, CMP ####[address] [place], [place] [address] BUN/Creatinine Ratio 17 ratio Normal 7-27 [facility] ([place]) Comment on above: Performed By: #### M G, GFR, ADIFF, ANEU, CBC, CMP ####[address] [place], [place] [address] Calcium [Mass/Vol] 8.9 mg/dL Normal 8.4-10.2 [facility] ([place]) Comment on above: Performed By: #### M G, GFR, ADIFF, ANEU, CBC, CMP ####[address] [place], [place] [address] Chloride [Moles/Vol] 104 mmol/L Normal 98-107 [facility] ([place]) Comment on above: Performed By: #### M G, GFR, ADIFF, ANEU, CBC, CMP ####[address] [place], [place] [address] CO2 [Moles/Vol] 27 mmol/L Normal 23-31 [facility] ([place]) Comment on above: Performed By: #### M G, GFR, ADIFF, ANEU, CBC, CMP ####[address] [place], [place] [address] Creatinine [Mass/Vol] 1.05 mg/dL Normal 0.70-1.30 [facility] ([place]) Comment on above: Performed By: #### M G, GFR, ADIFF, ANEU, CBC, CMP ####[address] [place], [place] [address] Electrolyte Balance 7.0 mEq/L Normal 4.0-15.0 [facility] ([place]) Comment on above: Performed By: #### M G, GFR, ADIFF, ANEU, CBC, CMP ####J[address] [place], [place] [address] Globulin 3.9 G/dL Normal [facility] ([place]) Comment on above: Performed By: #### M G, GFR, ADIFF, ANEU, CBC, CMP ####[address] [place], [place] [address] Glucose [Mass/Vol] 158 mg/dL High 80-115 [facility] ([place]) Comment on above: Performed By: #### M G, GFR, ADIFF, ANEU, CBC, CMP ####[address] [place], [place] [address] Potassium [Moles/Vol] 4.5 mmol/L Normal 3.5-5.1 [facility] ([place]) Comment on above: Performed By: #### M G, GFR, ADIFF, ANEU, CBC, CMP ####[address] [place], [place] [address] Sodium [Moles/Vol] 138 mmol/L Normal 136-145 [facility] ([place]) Comment on above: Performed By: #### M G, GFR, ADIFF, ANEU, CBC, CMP ####[address] [place], [place] [address] Total Protein 7.0 G/dL Normal 6.4-8.2 [facility] ([place]) Comment on above: Performed By: #### M G, GFR, ADIFF, ANEU, CBC, CMP ####[address] [place], [place] [address] Urea nitrogen [Mass/Vol] 18 mg/dL Normal 7-18 [facility] ([place]) Comment on above: Performed By: #### M G, GFR, ADIFF, ANEU, CBC, CMP ####[address] [place], [place] [address] CT ANGIOGRAPHY HEAD W/ CONTR Arpit 10-03-2023 [...] 10/03/2023 10:41:49 AM Ordering Provider: ABDULLAHI AGUIRRE [facility] ([place]) CT ANGIOGRAPHY NECK W/CONTRA Kassidy 10-03-2023 CT [...] 10/03/2023 10:41:06 AM Ordering Provider: ABDULLAHI AGUIRRE [facility] ([place]) CT HEAD OR BRAIN W/O CONTRAS Ton [...] 10/01/2023 11:46:49 PM Ordering Provider: TITA Echevarria [facility] ([place]) LABORATORYOrdered By: Kwasi Rob on 10-03-2023 Blood Glucose Testing Reason Routine (10/03/23 4:43 PM) [facility] Work Phone: Glucose [Mass/Vol] 267 mg/dL High 82 - 115 mg/dL [facility] Work Phone: Blood Glucose Testing Reason Routine (10/03/23 11:39 AM) [facility] Work Phone: Glucose [Mass/Vol] 210 mg/dL High 82 - 115 mg/dL [facility] Work Phone: Blood Glucose Testing Reason Routine (10/03/23 7:58 AM) [facility] Work Phone: Glucose [Mass/Vol] 214 mg/dL High 82 - 115 mg/dL [facility] Work Phone: LABORATORYOrdered By: SYSTEM [...] (Bld) [#/Vol] 4.31 106/mcL Normal 4.04 - 6.1 3 10^6/mcL AO Workflow SS Sodium [Moles/Vol] 138 [...] Magnesium [Mass/Vol] 2.0 mg/dL Normal 1.8-2.4 [facility] ([place]) Comment on above: Performed By: #### M G, ZAYNAB, NOE, ANEU, CBC, CMP ####J[address] [place], [place] [address] .Auto DiffOrdered By: SYSTEM SYSTEM on 10-02-2023 Basophil, Absolute 0.1 103/mcL Normal 0.0-0.2 AO Wo rkflow SS Comment on above: Performed By: #### C BC, ADIFF, MG, GFR, ANEU, CMP ####[address] [place], [place] [address] Basophils/100 WBC (Bld) 1.0 % Normal 0.0-2.5 A O Workflow SS Comment on above: Performed By: #### C BC, ADIFF, MG, GFR, ANEU, CMP ####[address] [place], [place] [address] Eosinophil, Absolute 0.3 103/mcL Normal 0.0-0.4 AO Workflow SS Comment on above: Performed By: #### C BC, ADIFF, MG, GFR, ANEU, CMP ####[address] [place], [place] [address] Eosinophils/100 WBC (Bld) 3.8 % Normal 0.0-7.0 AO Workflow SS Comment on above: Performed By: #### C BC, ADIFF, MG, GFR, ANEU, CMP ####[address] [place], [place] [address] Lymphocyte, Absolute 1.6 103/mcL Normal 0.8-3.9 AO Workflow SS Comment on above: Performed By: #### C BC, ADIFF, MG, GFR, ANEU, CMP ####[address] [place], [place] [address] Lymphocytes/100 WBC (Bld) 23.2 % Normal 10.0-50.0 AO Workflow SS Comment on above: Performed By: #### C BC, ADIFF, MG, GFR, ANEU, CMP ####[address] [place], [place] [address] Monocyte, Absolute 0.7 103/mcL Normal 0.2-1.0 AO Wo rkflow SS Comment on above: Performed By: #### C BC, ADIFF, MG, GFR, ANEU, CMP ####[address] [place], [place] [address] Monocytes/100 WBC (Bld) 9.7 % Normal 1.7-13.0 A O Workflow SS Comment on above: Performed By: #### C BC, ADIFF, MG, GFR, ANEU, CMP ####[address] [place], [place] [address] Neutrophils/100 WBC (Bld) 62.3 % Normal 37.0-80.0 AO Workflow SS Comment on above: Performed By: #### C BC, ADIFF, MG, GFR, ANEU, CMP ####[address] [place], [place] [address] .GFRon 10-02-2023 GFR 76 ml/min/1.73sqm Normal [facility] ([place]) Comment on above: Result Comment: GFR Population [...] BC, ADIFF, MG, GFR, ANEU, CMP ####[address] [place], [place] [address] GFR Non- 63 ml/min/1.73sqm Normal [facility] ([place]) Comment on above: Result Comment: GFR [...] ADIFF, MG, GFR, ANEU, CMP ####[address] [place], [place] [address] .NEUABSOrdered By: SYSTEM SY STEM on 10-02-2023 Neutrophil, Absolute 4.4 103/mcL Normal 2.9-6.2 AO Workflow SS Comment on above: Performed By: #### C BC, ADIFF, MG, GFR, ANEU, CMP ####[address] [place] [id number] A1Con 10-02-2023 HbA1c (Bld) [Mass fraction] 7.7 % High 4.3-6.4 [facility] ([place]) Comment on above: Performed By: #### F T4, LIPID, A1C, TSH #### [address] [address] CBCOrdered By: [employer] SYSTEM on 10-02-2023 Erythrocyte distribution width (RBC) [Ratio] 18.7 % High 11.5-14.5 AO Workflow SS Comment on above: Performed By: #### C BC, ADIFF, MG, GFR, ANEU, CMP ####[address] [place], [place] [address] Hematocrit (Bld) [Volume fraction] 33.0 % Low 42.0-52.0 AO Workflow SS Comment on above: Performed By: #### C BC, ADIFF, MG, GFR, ANEU, CMP ####J[address]red [address] [address] MCH (RBC) [Entitic mass] 24.6 pg Low 27.0-31.2 AO Workflow SS Comment on above: Performed By: #### C BC, ADIFF, MG, GFR, ANEU, CMP ####[address] [place], [place] [address] MCHC 32.8 G/dL Normal 31.8-35.4 AO Workflow SS Comment on above: Performed By: #### C BC, ADIFF, MG, GFR, ANEU, CMP ####[address] [place], [place] [address] MCV (RBC) [Entitic vol] 75.0 fL Low 80.0-94.0 A O Workflow SS Comment on above: Performed By: #### C BC, ADIFF, MG, GFR, ANEU, CMP ####[address] [place], [place] [address] Platelet mean volume (Bld) [Entitic vol] 7.5 fL Normal 7.4-10.4 AO Workflow SS Comment on above: Performed By: #### C BC, ADIFF, MG, GFR, ANEU, CMP ####[address] [place], [place] [address] CBCon 10-02-2023 Hgb 10.8 G/dL Low 14.0-18.0 [facility] ([place]) Comment on above: Performed By: #### C BC, ADIFF, MG, GFR, ANEU, CMP ####J[address] [place], [place] [address] Platelet 220 10 3/mcL Normal 130-400 [facility] ([place]) Comment on above: Performed By: #### C BC, ADIFF, MG, GFR, ANEU, CMP ####J[address] [place], [place] [address] RBC 4.40 10 6/mcL Normal 4.04-6.13 [facility] ([place]) Comment on above: Performed By: #### C BC, ADIFF, MG, GFR, ANEU, CMP ####[address] [place], [place] [address] WBC 7.0 10 3/mcL Normal 4.6-10.8 [facility] ([place]) Comment on above: Performed By: #### C BC, ADIFF, MG, GFR, ANEU, CMP ####J[address]red [address] [place], [place] [address] CMPon 10-02-2023 Albumin Level 3.2 G/dL Low 3.4-4.8 [facility] ([place]) Comment on above: Performed By: #### C BC, ADIFF, MG, GFR, ANEU, CMP ####[address] [place], [place] [address] ALT [Catalytic activity/Vol] 25 U/L Normal 16-63 [facility] ([place]) Comment on above: Performed By: #### C BC, ADIFF, MG, GFR, ANEU, CMP ####[address] [place], [place] [address] AST [Catalytic activity/Vol] 17 U/L Normal 10-40 [facility] ([place]) Comment on above: Performed By: #### C BC, ADIFF, MG, GFR, ANEU, CMP ####[address] [place], [place] [address] Bili Total 0.4 mg/dL Normal 0.2-1.0 [facility] ([place]) Comment on above: Result Comment: Use of this assay is not recommended for patients undergoing treatment with eltrombopag due to the potential for falsely elevated results. Performed By: #### C BC, ADIFF, MG, GFR, ANEU, CMP ####[address] [place], [place] [address] BUN/Creatinine Ratio 21 ratio Normal 7-27 [facility] ([place]) Comment on above: Performed By: #### C BC, ADIFF, MG, GFR, ANEU, CMP ####[address] [place], [place] [address] Total Protein 7.3 G/dL Normal 6.4-8.2 [facility] ([place]) Comment on above: Performed By: #### C BC, ADIFF, MG, GFR, ANEU, CMP ####[address] [place], [place] [address] CMPOrdered By: SYSTEM SYSTEM on 10-02-2023 Albumin/Globulin [Mass ratio] 0.8 {ratio} Low 1.1-2.5 AO ADM SS Comment on above: Performed By: #### C BC, ADIFF, MG, GFR, ANEU, CMP ####[address] [place], [place] [address] ALP [Catalytic activity/Vol] 99 U/L Normal 40-135 AO ADM SS Comment on above: Performed By: #### C BC, ADIFF, MG, GFR, ANEU, CMP ####J[address] [place], [place] [address] Calcium [Mass/Vol] 8.8 mg/dL Normal 8.4-10.2 AO ADM SS Comment on above: Performed By: #### C BC, ADIFF, MG, GFR, ANEU, CMP ####J[address] [place] [address] Chloride [Moles/Vol] 105 mmol/L Normal 98-107 AO A DM SS Comment on above: Performed By: #### C BC, ADIFF, MG, GFR, ANEU, CMP ####Jar[address] [place] [address] CO2 [Moles/Vol] 24 mmol/L Normal 23-31 AO ADM SS Comment on above: Performed By: #### C BC, ADIFF, MG, GFR, ANEU, CMP ####[address] [place] [address] Creatinine [Mass/Vol] 1.18 mg/dL Normal 0.70-1.30 AO ADM SS Comment on above: Performed By: #### C BC, ADIFF, MG, GFR, ANEU, CMP ####[address] [place] [id number] Electrolyte Balance 11.0 mEq/L Normal 4.0-15.0 AO AD M SS Comment on above: Performed By: #### C BC, ADIFF, MG, GFR, ANEU, CMP ####[address] [place] [id number] Globulin 4.1 G/dL Normal AO ADM SS Comment on above: Performed By: #### C BC, ADIFF, MG, GFR, ANEU, CMP ####[address] [place] [id number] Glucose [Mass/Vol] 80 mg/dL Normal 80-115 AO ADM SS Comment on above: Performed By: #### C BC, ADIFF, MG, GFR, ANEU, CMP ####[address] [place] [id number] Potassium [Moles/Vol] 3.9 mmol/L Normal 3.5-5.1 AO ADM SS Comment on above: Performed By: #### C BC, ADIFF, MG, GFR, ANEU, CMP ####[address] [place], [place] [address] Sodium [Moles/Vol] 140 mmol/L Normal 136-145 AO ADM SS Comment on above: Performed By: #### C BC, ADIFF, MG, GFR, ANEU, CMP ####J[address] [place], [place] [address] Urea nitrogen [Mass/Vol] 25 mg/dL High 7-18 AO ADM SS Comment on above: Performed By: #### C BC, ADIFF, MG, GFR, ANEU, CMP ####J[address] [place], [place] [address] FT4on 10-02-2023 Free T4 [Mass/Vol] 0.99 ng/dL Normal 0.76-1.46 [facility] ([place]) Comment on above: Performed By: #### F T4, LIPID, A1C, TSH #### Jarred [address] [place], [place] [address] LABORATORYOrdered By: SYSTEM SYSTEM on 10-02-2023 Albumin [...] (Bld) [#/Vol] 4.40 106/mcL Normal 4.04 - 6.1 3 10^6/mcL AO Workflow SS Urea nitrogen/Creatinine [Mass ratio] 21 ratio Normal 7 - 27 ratio AO ADM SS WBC (Bld) [#/Vol] 7.0 103/mcL Normal 4.6 - 10.8 10^3/mcL AO Workflow SS Free T4 [Mass/Vol] 0.99 ng/dL Normal 0.76 - 1. 46 ng/dL AO ADM SS HbA1c (Bld) [Mass [...] 10-02-2023 Cholesterol [Mass/Vol] 182 mg/dL Normal 0-200 [facility] ([place]) Comment on above: Result Comment: Chol esterol Reference Interval: Less than 200 Desirable 200-239 Borderline high risk 240 and above High risk Performed By: #### F T4, LIPID, A1C, TSH #### [address] [address] Cholesterol in HDL [Mass/Vol] 37 mg/dL Low 40-60 [facility] ([place]) Comment on above: Performed By: #### F T4, LIPID, A1C, TSH #### [address] [address] Cholesterol in LDL [Mass/Vol] 80 mg/dL Normal 0-130 [facility] ([place]) Comment on above: Performed By: #### F T4, LIPID, A1C, TSH #### [address] [address] Triglyceride [Mass/Vol] 323 mg/dL High 0-150 A [facility] ([place]) Comment on above: Result Comment: Trig lyceride Reference Interval: Less than 150 Normal 150-199 Borderline high risk 200-499 High risk 500 or higher Very high risk Performed By: #### F T4, LIPID, A1C, TSH #### Jarred [place] [address] [place], [place] [address] MGOrdered By: SYSTEM SYSTEM on 10-02-2023 Magnesium [Mass/Vol] 1.9 mg/dL Normal 1.8-2.4 AO A DM SS Comment on above: Performed By: #### C BC, ADIFF, MG, GFR, ANEU, CMP ####[address] [place], [place] [address] MRI BRAIN W/O CONTRASTon MRI BRAIN W/O [...] Date: 10/02/2023 8:38:30 AM Ordering Provider: CHITO BUENROSTRO Normal [facility] ([place]) TSHon 10-02-2023 TSH Qn 3.31 m[IU]/L Normal 0.36-3.74 [facility] ([place]) Comment on above: Performed By: #### F T4, LIPID, A1C, TSH #### Jarred [place] [address] [place], [place] [address] .Auto Diffon 10-01-2023 Basophil, Absolute 0.1 10 3/mcL Normal 0.0-0.2 [facility] ([place] Comment on above: Performed By: #### A JORGE, CMP, ADIFF, TROPHS, CBC, GFR, MDW, MG ####[address] [place], [place] [address] Basophils/100 WBC (Bld) 1.4 % Normal 0.0-2.5 A [facility] ([place]) Comment on above: Performed By: #### A JORGE, CMP, ADIFF, TROPHS, CBC, GFR, MDW, MG ####[address] [place], [place] [address] Eosinophil, Absolute 0.4 10 3/mcL Normal 0.0-0.4 [facility] ([place]) Comment on above: Performed By: #### A JORGE, CMP, ADIFF, TROPHS, CBC, GFR, MDW, MG ####[address] [place], [place] [address] Eosinophils/100 WBC (Bld) 3.7 % Normal 0.0-7.0 [facility] ([place] Comment on above: Performed By: #### A JORGE, CMP, ADIFF, TROPHS, CBC, GFR, MDW, MG ####[address] [place], [place] [address] Lymphocyte, Absolute 2.5 10 3/mcL Normal 0.8-3.9 [facility] ([place]) Comment on above: Performed By: #### A JORGE, CMP, ADIFF, TROPHS, CBC, GFR, MDW, MG ####[address] [place], [place] [address] Lymphocytes/100 WBC (Bld) 23.6 % Normal 10.0-50.0 [facility] ([place] Comment on above: Performed By: #### A JORGE, CMP, ADIFF, TROPHS, CBC, GFR, MDW, MG ####Jarred [address] [place], [place] [address] Monocyte, Absolute 1.0 10 3/mcL Normal 0.2-1.0 [facility] ([place] Comment on above: Performed By: #### A JORGE, CMP, ADIFF, TROPHS, CBC, GFR, MDW, MG ####Jarred [address] [place], [place] [address] Monocytes/100 WBC (Bld) 9.7 % Normal 1.7-13.0 A [facility] ([place]) Comment on above: Performed By: #### A JORGE, CMP, ADIFF, TROPHS, CBC, GFR, MDW, MG ####Jarred [address] [place], [place] [address] Neutrophils/100 WBC (Bld) 61.6 % Normal 37.0-80.0 [facility] ([place]) Comment on above: Performed By: #### A JORGE, CMP, ADIFF, TROPHS, CBC, GFR, MDW, MG ####Jarred [address] [place], [place] [address] .GFRon 10-01-2023 GFR 59 ml/min/1.73sqm Normal [facility] ([place]) Comment on above: Result Comment: GFR [...] ADIFF, TROPHS, CBC, GFR, MDW, MG ####Jarred [address] [place], [place] [address] GFR Non- 48 ml/min/1.73sqm Normal [facility] ([place]) Comment on above: Result Comment: GFR [...] CMP, ADIFF, TROPHS, CBC, GFR, MDW, MG ####[address] [address] .MDWon 10-01-2023 Monocyte Distribution Width 18.06 Normal 0.00-20.00 [facility] ([place]) Comment on above: Result Comment: For ED adult patients suspected of sepsis, MDW<=20.0 does not rule out sepsis or risk of sepsis Performed By: #### A JORGE, CMP, ADIFF, TROPHS, CBC, GFR, MDW, MG ####[address] [address] .NEUABSon 10-01-2023 Neutrophil, Absolute 6.5 10 3/mcL High 2.9-6.2 [facility] ([place]) Comment on above: Performed By: #### A JORGE, CMP, ADIFF, TROPHS, CBC, GFR, MDW, MG ####[address] [address] CBCon 10-01-2023 Erythrocyte distribution width (RBC) [Ratio] 18.8 % High 11.5-14.5 [facility] ([place] Comment on above: Performed By: #### A JORGE, CMP, ADIFF, TROPHS, CBC, GFR, MDW, MG #### [address] [address] Hematocrit (Bld) [Volume fraction] 33.8 % Low 42.0-52.0 [facility] ([place] Comment on above: Performed By: #### A JORGE, CMP, ADIFF, TROPHS, CBC, GFR, MDW, MG #### [address] [place] [address] Hgb 11.0 G/dL Low 14.0-18.0 [facility] ([place] Comment on above: Performed By: #### A JORGE, CMP, ADIFF, TROPHS, CBC, GFR, MDW, MG #### [address] [address] MCH (RBC) [Entitic mass] 24.3 pg Low 27.0-31.2 [facility] ([place] Comment on above: Performed By: #### A JORGE, CMP, ADIFF, TROPHS, CBC, GFR, MDW, MG #### [address] [address] MCHC 32.5 G/dL Normal 31.8-35.4 [facility] ([place] Comment on above: Performed By: #### A JORGE, CMP, ADIFF, TROPHS, CBC, GFR, MDW, MG #### [place] [id number] MCV (RBC) [Entitic vol] 74.7 fL Low 80.0-94.0 A [facility] ([place]) Comment on above: Performed By: #### A JORGE, CMP, ADIFF, TROPHS, CBC, GFR, MDW, MG #### [address] [address] Platelet 250 10 3/mcL Normal 130-400 [facility] ([place] Comment on above: Performed By: #### A JORGE, CMP, ADIFF, TROPHS, CBC, GFR, MDW, MG #### [address] [address] Platelet mean volume (Bld) [Entitic vol] 7.7 fL Normal 7.4-10.4 [facility] ([place] Comment on above: Performed By: #### A JORGE, CMP, ADIFF, TROPHS, CBC, GFR, MDW, MG #### [address] [address] RBC 4.52 10 6/mcL Normal 4.04-6.13 [facility] ([place] Comment on above: Performed By: #### A JORGE, CMP, ADIFF, TROPHS, CBC, GFR, MDW, MG #### Jarred [place] [address] [place], [place] [address] WBC 10.6 10 3/mcL Normal 4.6-10.8 [facility] ([place] Comment on above: Performed By: #### A JORGE, CMP, ADIFF, TROPHS, CBC, GFR, MDW, MG #### [id number] [place], [place] [address] CMPon 10-01-2023 Albumin Level 3.4 G/dL Normal 3.4-4.8 [facility] ([place]) Comment on above: Performed By: #### A JORGE, CMP, ADIFF, TROPHS, CBC, GFR, MDW, MG ####[address] [place], [place] [address] Albumin/Globulin [Mass ratio] 0.8 {ratio} Low 1.1-2.5 [facility] ([place] Comment on above: Performed By: #### A JORGE, CMP, ADIFF, TROPHS, CBC, GFR, MDW, MG ####[address] [place], [place] [address] ALP [Catalytic activity/Vol] 97 U/L Normal 40-135 [facility] ([place]) Comment on above: Performed By: #### A JORGE, CMP, ADIFF, TROPHS, CBC, GFR, MDW, MG ####[address] [place], [place] [address] ALT [Catalytic activity/Vol] 24 U/L Normal 16-63 [facility] ([place] Comment on above: Performed By: #### A JORGE, CMP, ADIFF, TROPHS, CBC, GFR, MDW, MG ####[address] [place], [place] [address] AST [Catalytic activity/Vol] 19 U/L Normal 10-40 [facility] ([place] Comment on above: Performed By: #### A JORGE, CMP, ADIFF, TROPHS, CBC, GFR, MDW, MG ####[address] [place], [place] [address] Bili Total 0.5 mg/dL Normal 0.2-1.0 [facility] ([place]) Comment on above: Result Comment: Use of this assay is not recommended for patients undergoing treatment with eltrombopag due to the potential for falsely elevated results. Performed By: #### A JORGE, CMP, ADIFF, TROPHS, CBC, GFR, MDW, MG ####[address] [place], [place] [address] BUN/Creatinine Ratio 20 ratio Normal 7-27 [facility] ([place]) Comment on above: Performed By: #### A JORGE, CMP, ADIFF, TROPHS, CBC, GFR, MDW, MG ####[address] [place], [place] [address] Calcium [Mass/Vol] 8.9 mg/dL Normal 8.4-10.2 [facility] ([place]) Comment on above: Performed By: #### A JORGE, CMP, ADIFF, TROPHS, CBC, GFR, MDW, MG ####[address] [place], [place] [address] Chloride [Moles/Vol] 104 mmol/L Normal 98-107 [facility] ([place]) Comment on above: Performed By: #### A JORGE, CMP, ADIFF, TROPHS, CBC, GFR, MDW, MG ####[address] [place], [place] [address] CO2 [Moles/Vol] 22 mmol/L Low 23-31 [facility] ([place]) Comment on above: Performed By: #### A JORGE, CMP, ADIFF, TROPHS, CBC, GFR, MDW, MG ####[address] [place], [place] [address] Creatinine [Mass/Vol] 1.48 mg/dL High 0.70-1.30 [facility] ([place]) Comment on above: Performed By: #### A JORGE, CMP, ADIFF, TROPHS, CBC, GFR, MDW, MG ####[address] [place], [place] [address] Electrolyte Balance 12.0 mEq/L Normal 4.0-15.0 [facility] ([place]) Comment on above: Performed By: #### A JORGE, CMP, ADIFF, TROPHS, CBC, GFR, MDW, MG ####[address] [place], [place] [address] Globulin 4.3 G/dL Normal [facility] ([place]) Comment on above: Performed By: #### A JORGE, CMP, ADIFF, TROPHS, CBC, GFR, MDW, MG ####[address] [place], [place] [address] Glucose [Mass/Vol] 151 mg/dL High 80-115 [facility] ([place]) Comment on above: Performed By: #### A JORGE, CMP, ADIFF, TROPHS, CBC, GFR, MDW, MG ####[address] [place], [place] [address] Potassium [Moles/Vol] 4.0 mmol/L Normal 3.5-5.1 [facility] ([place]) Comment on above: Performed By: #### A JORGE, CMP, ADIFF, TROPHS, CBC, GFR, MDW, MG ####[address] [place], [place] [address] Sodium [Moles/Vol] 138 mmol/L Normal 136-145 [facility] ([place]) Comment on above: Performed By: #### A JORGE, CMP, ADIFF, TROPHS, CBC, GFR, MDW, MG ####[address] [place], [place] [address] Total Protein 7.7 G/dL Normal 6.4-8.2 [facility] ([place]) Comment on above: Performed By: #### A JORGE, CMP, ADIFF, TROPHS, CBC, GFR, MDW, MG ####[address] [place], [place] [address] Urea nitrogen [Mass/Vol] 30 mg/dL High 7-18 [facility] ([place]) Comment on above: Performed By: #### A JORGE, CMP, ADIFF, TROPHS, CBC, GFR, MDW, MG ####[address] [place], [place] [address] LABORATORYOrdered By: Ronald العراقي on 10-01-2023 Appearance [...] Spec Grav 1.020 (10/01/23 10:03 PM) Normal 1.015-1.025 AO Auto Urine SS UA Specimen Type [...] ng/L Male: 0-76 ng/L Testing performed on Atrica using a homogeneous sandwich chemiluminescent immunoassay based on Cogni[employer] technology. Albumin BCP dye [Mass/Vol] 3.4 G/dL [...] (Bld) [#/Vol] 4.52 106/mcL Normal 4.04 - 6.1 3 10^6/mcL AO Workflow SS Sodium [Moles/Vol] 138 mmol/L Normal 136 - 145 mmol/L AO ADM SS Troponin I.cardiac DL <= 0.01 ng/mL [Mass/Vol] 10 ng/L Normal 0 - 76 ng/L AO ADM SS Comment on above: Interpretive Data: H igh Sensitive Troponin I Reference Ranges: Female: 0-51 ng/L Male: 0-76 ng/L Testing performed on Atrica using a homogeneous sandwich chemiluminescent immunoassay based on C[employer] technology. Urea nitrogen [Mass/Vol] 30 mg/dL High 7 - 18 mg/dL AO ADM SS Urea nitrogen/Creatinine [Mass ratio] 20 ratio Normal 7 - 27 ratio AO ADM SS WBC (Bld) [#/Vol] 10.6 103/mcL Normal 4.6 - 10.8 10^3/mcL AO Workflow SS MGon 10-01-2023 Magnesium [Mass/Vol] 1.8 mg/dL Normal 1.8-2.4 [facility] ([place]) Comment on above: Performed By: #### A JORGE, CMP, ADIFF, TROPHS, CBC, GFR, MDW, MG ####[address] [place], [place] [address] TROPHSon 10-01-2023 High Sensitivity Troponin I 9 ng/L Normal 0-76 [facility] ([place]) Comment on above: Result Comment: High Sensitive Troponin I Reference Ranges: Female: 0-51 ng/L Male: 0-76 ng/L Testing performed on Dimension EXL using a homogeneous sandwich chemiluminescent immunoassay based on Cogni[employer] technology. Performed By: #### T SAY #### [address] [place], [place] [address] High Sensitivity Troponin I 10 ng/L Normal 0-76 [facility] ([place]) Comment on above: Result Comment: High Sensitive Troponin I Reference Ranges: Female: 0-51 ng/L Male: 0-76 ng/L Testing performed on Dimension EXL using a homogeneous sandwich chemiluminescent immunoassay based on CogniK technology. Performed By: #### A JORGE, CMP, ADJONNY, ESTHELAS, CBC, GFR, MDW, MG ####[address] [place], [place] [address] UAon 10-01-2023 Color (U) Yellow Normal [facility] ([place]) Comment on above: Performed By: #### U A ####[address] [place], [place] [address] Glucose (U) [Mass/Vol] 500 mg/dL Abnormal Negative [facility] ([place]) Comment on above: Performed By: #### U A ####[address] [place], [place] [address] Ketones Ql (U) Negative Normal Negative [facility] ([place]) Comment on above: Performed By: #### U A ####[address] [place], [place] [address] UA Appear Clear Normal Clear [facility] ([place]) Comment on above: Performed By: #### U A ####[address] [place], [place] [address] UA Blood Negative Normal Negative [facility] ([place]) Comment on above: Performed By: #### U A ####[address] [place] [id number] UA Leuk Est Negative Normal Negative [facility] ([place]) Comment on above: Performed By: #### U A ####[address] [place], [place] [address] UA Nitrite Negative Normal Negative [facility] ([place]) Comment on above: Performed By: #### U A ####[address] [place], [place] [address] UA pH 5.5 Normal 5.0 - 8.0 [facility] ([place]) Comment on above: Performed By: #### U A ####[address] [place], [place] [address] UA Protein Negative Normal Negative [facility] ([place] Comment on above: Performed By: #### U A ####[address] [place] [id number] UA Spec Grav 1.020 Normal 1.015-1.025 [facility] ([place]) Comment on above: Performed By: #### U A ####[address] [place] [id number] UA Specimen Type Void Normal [facility] ([place]) Comment on above: Performed By: #### U A ####[address] [place], [place] [address] UA Urobilinogen 0.2 E.U./dL Normal 0.2-1.0 [facility] ([place]) Comment on above: Performed By: #### U A ####[address] [place], [place] [address] Urobilinogen (U) [Mass/Vol] Negative Normal Negative [facility] ([place]) Comment on above: Performed By: #### U A ####[address] [place], [place] [address] XR CHEST 1 VIEWon 10-01-2023 XR CHEST [...] Date: 10/01/2023 9:13:56 PM Ordering Provider: [facility] ([place]) Absolute lymphocyte countOrd ered By: Fany Diaz on 08-05-2023 Lymphocytes Auto (Unsp spec) [#/Vol] 2.02 10*3/uL 0.83-4.51 [facility] Automated lymphocyte count a s percentage of total leukocytesOrdered By: Fany Diaz on 08-05-2023 Lymphocytes/100 WBC Auto (Unsp spec) 22.3 % 19-41 [facility] Basophil percentageOrdered B y: Fany Diaz on 08-05-2023 Basophil percentage 3.9 mg/dL 2.5-4.9 [facility] Basophils/100 WBC (Bld) 0.9 % 0-1 [facility] Chloride [Moles/Vol] 108 mmol/L 98-107 [facility] Eosinophils/100 WBC (Bld) 3.2 % 0-5 [facility] Glucose [Mass/Vol] 158 mg/dL 74-106 [facility] Comment on above: Fasting Glucose resu lt greater than or equal to 126 mg/dL suggests DIABETES MELLITUS per A.D.A. criteria. Hemoglobin (Bld) [Mass/Vol] 11.6 g/dL 13.0-16.5 [facility] Monocytes/100 WBC (Bld) 9.6 % 0-10 [facility] Neutrophils (Bld) [#/Vol] 5.8 10*3/uL 2.0-7.7 [facility] Neutrophils/100 WBC (Bld) 63.6 % 47-70 [facility] Potassium [Moles/Vol] 4.1 mmol/L 3.5-5.1 [facility] Sodium [Moles/Vol] 136 mmol/L 136-145 [facility] WBC (Bld) [#/Vol] 9.1 10*3/uL 4.4-11.0 [facility] Determination of erythrocyte mean corpuscular volume (MCV)Ordered By: Fany Diaz on 08-05-2023 MCV (RBC) [Entitic vol] 77.0 fL 80-94 [facility] Erythrocyte distribution wid th ratioOrdered By: [facility] i[facility]az on 08-05-2023 Erythrocyte distribution width (RBC) [Ratio] 18.6 % 11.6-14.6 [facility] Erythrocyte distribution wid th standard deviationOrdered By: [facility] Diaz on 08-05-2023 Erythrocyte distribution width (RBC) [Entitic vol] 51.4 fL 35.1-43.9 [facility] Hematocrit Auto (Bld) [Volum e fraction]Ordered By: Fany Diaz on 08-05-2023 Hematocrit (Bld) [Volume fraction] 38.1 % 40-54 [facility] Immature granulocytes/100 WB C Auto (Bld)Ordered By: Fany Diaz on 08-05-2023 Immature granulocytes/100 WBC (Bld) 0.400 % 0.0-0.9 [facility] Comment on above: IG% - Immature Granu locytes (promyelocytes, myelocytes and metamyelocytes) > 1% indicates that a LEFT SHIFT is Present. Iron measurement (mass/mass) Ordered By: Fany Diaz on 08-05-2023 Iron (Unsp spec) [Mass/Mass] 42 ug/dL 65-175 [facility] Laboratory - Chemistry and C hemistry - challengeOrdered By: Fany Diaz on 08-05-2023 CO2 [Moles/Vol] 20.0 mmol/L 21.0-32.0 [facility] Ferritin [Mass/Vol] 20 ng/mL 26-388 [facility] Urea nitrogen/Creatinine [Mass ratio] 25.5 mg/mg 10-20 [facility] Laboratory - Hematology and Cell countsOrdered By: Fany Diaz on 08-05-2023 MCH (RBC) [Entitic mass] 23.4 pg 27.0-32.0 [facility] MCHC (RBC) [Mass/Vol] 30.4 g/dL 32-36 [facility] Nucleated RBC/100 WBC (Bld) [Ratio] 0 % 0-5 [facility] Platelet mean volume (Bld) [Entitic vol] 9.8 fL 6.2-12.0 [facility] Platelets (Bld) [#/Vol] 277 10*3/uL 150-450 [facility] No Panel InformationOrdered By: Fany Diaz on 08-05-2023 Estimated GFR (MDRD) Amer 88 mL/min >60 [facility] Comment on above: GFR Calc Estimated GFR (MDRD) Non-Af Amer 73 mL/min >60 [facility] Comment on above: Non- GFR Calc Parathyroid Hormone (Intact) 71.4 pg/mL 18.4-80.1 [facility] Total Iron Binding Capacity 383 ug/dL 250-450 [facility] RBC Auto (Bld) [#/Vol]Ordere d By: Fany Diaz on 08-05-2023 RBC (Bld) [#/Vol] 4.95 10*6/uL 4.6-6.2 [facility] Serum or plasma calcium grazyna urement (mass/volume)Ordered By: Fany Diaz on 08-05-2023 Calcium [Mass/Vol] 9.3 mg/dL 8.5-10.1 [facility] Serum or plasma creatinine m easurement (mass/volume)Ordered [...] Iron saturation [Mass fraction] 11.0 % 15.0-55.0 [facility] Serum or plasma urea nitroge n measurement (mass/volume)Ordered By: Fany Diaz on 08-05-2023 Urea nitrogen [Mass/Vol] 28 mg/dL 7-18 [facility] Serum or plasma uric acid me asurement (mass/volume)Ordered By: Fany Diaz on 08-05-2023 Urate [Mass/Vol] 7.3 mg/dL 3.5-7.2 [facility] Comment on above: The drugs N-Acetylcy steine and Metamizole may falsely depress this assay. Thin prep Papanicolaou smear with manual screeningOrdered By: Fany Diaz on 08-05-2023 Protein (U) [Mass/Vol] 25.0 mg/dL 0.0-11.8 [facility] Thin prep Papanicolaou smear with manual screening 3.3 g/dL 3.2-5.0 [facility] Urine creatinine measurement (mass/volume)Ordered By: [facility] on 08-05-2023 Creatinine (U) [Mass/Vol] 67.40 mg/dL NO RANGE EST. [facility] Urine protein/creatinine mas s ratioOrdered By: Fany Diaz on 08-05-2023 Protein/Creatinine (U) [Mass ratio] 371 mg/g CRE 0-200 [facility] Basophil percentageOrdered B y: Francois Valiente on 06-06-2023 Creatinine [Mass/Vol] 1.4 mg/dL 0.70-1.30 [facility] Laboratory - Chemistry and C hemistry - challengeOrdered By: Francois Valiente on 06-06-2023 GFR/1.73 sq M.predicted among non-blacks MDRD (S/P/Bld) [Vol rate/Area] 55.0000 mL/min/{1.73_m2} >60 [facility] Laboratory - Hematology and Cell countson 05-20-2023 HbA1c (Bld) [Mass fraction] 7.5 % 4.2-6.3 [facility] Basophil percentageOrdered B y: Oren Sky on 04-25-2023 Bilirubin [Mass/Vol] 0.50 mg/dL 0.20-1.00 [facility] Comment on above: For patients on eltr ombopag therapy, use of Dimension Lennon TBIL is not recommended. Chloride [Moles/Vol] 108 mmol/L 98-107 [facility] Glucose [Mass/Vol] 157 mg/dL 74-106 [facility] Comment on above: Fasting Glucose resu lt greater than or equal to 126 mg/dL suggests DIABETES MELLITUS per A.D.A. criteria. Hemoglobin (Bld) [Mass/Vol] 11.5 g/dL 13.0-16.5 [facility] Potassium [Moles/Vol] 3.9 mmol/L 3.5-5.1 [facility] Protein [Mass/Vol] 8.4 g/dL 6.4-8.2 [facility] Sodium [Moles/Vol] 135 mmol/L 136-145 [facility] WBC (Bld) [#/Vol] 10.8 10*3/uL 4.4-11.0 [facility] Determination of erythrocyte mean corpuscular volume (MCV)Ordered By: Oren Sky on 04-25-2023 MCV (RBC) [Entitic vol] 76.0 fL 80-94 [facility] Erythrocyte distribution wid th ratioOrdered By: Oren Sky on 04-25-2023 Erythrocyte distribution width (RBC) [Ratio] 18.6 % 11.6-14.6 [facility] Erythrocyte distribution wid th standard deviationOrdered By: Oren Sky on 04-25-2023 Erythrocyte distribution width (RBC) [Entitic vol] 48.6 fL 35.1-43.9 [facility] Hematocrit Auto (Bld) [Volum e fraction]Ordered By: Oren Sky on 04-25-2023 Hematocrit (Bld) [Volume fraction] 38.0 % 40-54 [facility] Laboratory - Chemistry and C hemistry - challengeOrdered By: Oren Sky on 04-25-2023 Albumin/Globulin [Mass ratio] 0.7 {ratio} 0.9-2.4 [facility] ALP [Catalytic activity/Vol] 102 U/L 45-117 [facility] ALT [Catalytic activity/Vol] 27 U/L 16-61 [facility] CO2 [Moles/Vol] 18.0 mmol/L 21.0-32.0 [facility] Globulin (S) [Mass/Vol] 4.9 g/dL 2.2-4.2 [facility] Natriuretic peptide B (Bld) [Mass/Vol] 13.4 pg/mL 0-100 [facility] Urea nitrogen/Creatinine [Mass ratio] 19.2 mg/mg 10-20 [facility] Laboratory - Hematology and Cell countsOrdered By: Oren Sky on 04-25-2023 MCH (RBC) [Entitic mass] 23.0 pg 27.0-32.0 [facility] MCHC (RBC) [Mass/Vol] 30.3 g/dL 32-36 [facility] Platelets (Bld) [#/Vol] 289 10*3/uL 150-450 [facility] No Panel InformationOrdered By: Oren Sky on 04-25-2023 Estimated GFR (MDRD) Amer 73 mL/min >60 [facility] Comment on above: GFR Calc Estimated GFR (MDRD) Non-Af Amer 60 mL/min >60 [facility] Comment on above: Non- GFR Calc Platelet mean volume Deon-Ec ker (Bld) [Entitic vol]Ordered By: Oren Sky on 04-25-2023 Platelet mean volume (Bld) [Entitic vol] 9.7 fL 6.2-12.0 [facility] RBC Auto (Bld) [#/Vol]Ordere d By: Oren Sky on 04-25-2023 RBC (Bld) [#/Vol] 5.00 10*6/uL 4.6-6.2 [facility] Serum or plasma calcium grazyna urement (mass/volume)Ordered By: Oren Sky on 04-25-2023 Calcium [Mass/Vol] 9.2 mg/dL 8.5-10.1 [facility] Serum or plasma creatinine m easurement (mass/volume)Ordered [...] on 04-25-2023 TSH Qn 1.74 uIU/mL 0.358-3.74 [facility] Serum or plasma urea nitroge n measurement (mass/volume)Ordered By: Oren Sky on 04-25-2023 Urea nitrogen [Mass/Vol] 25 mg/dL 7-18 [facility] Thin prep Papanicolaou smear with manual screeningOrdered By: Oren Sky on 04-25-2023 Thin prep Papanicolaou smear with manual screening 3.5 g/dL 3.2-5.0 [facility] Thin prep Papanicolaou smear with manual screening 17 U/L 15-37 [facility] Thin prep Papanicolaou smear with manual screening 9 5-15 [facility] Laboratory - Chemistry and C hemistry - challengeOrdered By: Jessica Gerardo on 02-26-2023 Free T4 [Mass/Vol] 0.85 ng/dL 0.76-1.46 [facility] No Panel InformationOrdered By: Jessica Gerardo on 02-26-2023 Thyroid Stimulating Hormone (TSH) 8.76 uIU/mL 0.358-3.74 [facility] Basophil percentageOrdered B y: Fany Diaz on 01-15-2023 Basophil percentage 2.8 mg/dL 2.5-4.9 [facility] Chloride [Moles/Vol] 107 mmol/L 98-107 [facility] Glucose [Mass/Vol] 74 mg/dL 74-106 [facility] Potassium [Moles/Vol] 3.2 mmol/L 3.5-5.1 [facility] Sodium [Moles/Vol] 139 mmol/L 136-145 [facility] Laboratory - Chemistry and C hemistry - challengeOrdered By: Fany Diaz on 01-15-2023 CO2 [Moles/Vol] 24.0 mmol/L 21.0-32.0 [facility] Urea nitrogen/Creatinine [Mass ratio] 10.2 mg/mg 10- [facility] No Panel InformationOrdered By: Fany Diaz on 01-15-2023 Estimated GFR (MDRD) Amer 74 mL/min >60 [facility] Comment on above: GFR Calc Estimated GFR (MDRD) Non-Af Amer 61 mL/min >60 [facility] Comment on above: Non- GFR Calc Serum or plasma albumin grazyna urement (mass/volume)Ordered By: Fany Diaz on 01-15-2023 Albumin [Mass/Vol] 3.2 g/dL 3.2-5.0 [facility] Serum or plasma calcium grazyna urement (mass/volume)Ordered By: Fany Diaz on 01-15-2023 Calcium [Mass/Vol] 8.7 mg/dL 8.5-10.1 [facility] Serum or plasma creatinine m easurement (mass/volume)Ordered By: Fany Diaz on 01-15-2023 Creatinine [Mass/Vol] 1.28 mg/dL 0.70-1.30 [facility] Comment on above: The validity of the calculated GFR & GFRAA in patients over 70 years has not been determined. Clinical correlation is essential. Serum or plasma urea nitroge n measurement (mass/volume)Ordered By: [facility] on 01-15-2023 Urea nitrogen [Mass/Vol] 13 mg/dL 7-18 [facility] Urine creatinine measurement (mass/volume)Ordered By: [facility] 01-15-[facility]23 Creatinine (U) [Mass/Vol] 73.90 mg/dL NO RANGE EST. [facility] Urine protein measurement (m ass/volume)Ordered By: [facility] on 01-15-2023 Protein (U) [Mass/Vol] 16.2 mg/dL 0.0-11.8 [facility] Urine protein/creatinine mas s ratioOrdered By: [facility] on 01-15-2023 Protein/Creatinine (U) [Mass ratio] 219 mg/g CRE 0-200 [facility] Absolute lymphocyte countOrd ered By: Fany Diaz on 12-31-2022 Lymphocytes Auto (Unsp spec) [#/Vol] 1.76 10*3/uL 0.83-4.51 [facility] Basophil percentageOrdered B y: Fany Diaz on 12-31-2022 Basophil percentage 3.7 mg/dL 2.5-4.9 [facility] Basophils/100 WBC (Bld) 0.6 % 0-1 [facility] Chloride [Moles/Vol] 107 mmol/L 98-107 [facility] Eosinophils/100 WBC (Bld) 2.3 % 0-5 [facility] Glucose [Mass/Vol] 117 mg/dL 74-106 [facility] Comment on above: Fasting Glucose resu lt from 100 to 125 mg/dL suggests IMPAIRED HOMEOSTASIS per A.D.A. criteria. Neutrophils (Bld) [#/Vol] 7.8 10*3/uL 2.0-7.7 [facility] Neutrophils/100 WBC (Bld) 72.0 % 47-70 [facility] Potassium [Moles/Vol] 3.8 mmol/L 3.5-5.1 [facility] Sodium [Moles/Vol] 138 mmol/L 136-145 [facility] WBC (Bld) [#/Vol] 10.9 10*3/uL 4.4-11.0 [facility] Bilirubin Test strip Ql (U)O rdered By: Fany Diaz on 12-31-2022 Bilirubin Ql (U) Negative Negative [facility] Blood erythrocytes count (nu mber/volume)Ordered By: Fany Diaz on 12-31-2022 RBC (Bld) [#/Vol] 4.20 10*6/uL 4.6-6.2 [facility] Blood hemoglobin measurement (mass/volume)Ordered By: Fany Diaz on 12-31-2022 Hemoglobin (Bld) [Mass/Vol] 10.8 g/dL 13.0-16.5 [facility] Blood lymphocytes/100 leukoc ytesOrdered By: Fany Diaz on 12-31-2022 Lymphocytes/100 WBC (Bld) 16.1 % 19-41 [facility] Blood monocytes/100 leukocyt esOrdered By: Fany Diaz on 12-31-2022 Monocytes/100 WBC (Bld) 8.5 % 0-10 [facility] Blood platelet mean volumeOr dered By: Fany Diaz on 12-31-2022 Platelet mean volume (Bld) [Entitic vol] 10.1 fL 6.2-12.0 [facility] Determination of erythrocyte mean corpuscular volume (MCV)Ordered By: Fany Diaz on 12-31-2022 MCV (RBC) [Entitic vol] 82.4 fL 80-94 [facility] Hematocrit Auto (Bld) [Volum e fraction]Ordered By: Fany Diaz on 12-31-2022 Hematocrit (Bld) [Volume fraction] 34.6 % 40-54 [facility] Iron measurement (mass/mass) Ordered By: Fany Diaz on 12-31-2022 Iron (Unsp spec) [Mass/Mass] 37 ug/dL 65-175 [facility] Ketones Test strip Ql (U)Ord ered By: Fany Diaz on 12-31-2022 Ketones Ql (U) Negative Negative [facility] Laboratory - Chemistry and C hemistry - challengeOrdered By: Fany Diaz on 12-31-2022 Albumin [Mass/Vol] 3.4 g/dL 2.9-4.4 [facility] CO2 [Moles/Vol] 22.0 mmol/L 21.0-32.0 [facility] Urea nitrogen/Creatinine [Mass ratio] 21.4 mg/mg 10-20 [facility] Laboratory - Hematology and Cell countsOrdered By: Fany Diaz on 12-31-2022 Erythrocyte distribution width (RBC) [Entitic vol] 50.4 fL 35.1-43.9 [facility] Erythrocyte distribution width (RBC) [Ratio] 16.8 % 11.6-14.6 [facility] Immature granulocytes/100 WBC (Bld) 0.500 % 0.0-0.9 [facility] Comment on above: IG% - Immature Granu locytes (promyelocytes, myelocytes and metamyelocytes) > 1% indicates that a LEFT SHIFT is Present. MCH (RBC) [Entitic mass] 25.7 pg 27.0-32.0 [facility] Nucleated RBC/100 WBC (Bld) [Ratio] 0 % 0-5 [facility] MCHC Auto (RBC) [Mass/Vol]Or dered By: Fany Diaz on 12-31-2022 MCHC (RBC) [Mass/Vol] 31.2 g/dL 32-36 [facility] Nitrite Test strip Ql (U)Ord ered By: Fany Diaz on 12-31-2022 Nitrite Ql (U) Negative Negative [facility] No Panel InformationOrdered By: Fany Diaz on 12-31-2022 Addendum Document Comment . [facility] Comment on above: The SPE pattern refl ects a polyclonal increase in gammaglobulin. Hypergammaglobulinemia is found in a wide varietyof infectious, non-infectious, and autoimmune diseasestates. Evidence of monoclonal protein is not apparent. Hwdkv-2-Rhsaydfeo 0.2 g/dL 0.0-0.4 [facility] Jvygw-4-Upkykmrfb 0.9 g/dL 0.4-1.0 [facility] Estimated GFR (MDRD) Amer 75 mL/min >60 [facility] Comment on above: GFR Calc Estimated GFR (MDRD) Non-Af Amer 62 mL/min >60 [facility] Comment on above: Non- GFR Calc Gamma Globulins 1.9 g/dL 0.4-1.8 [facility] Total Iron Binding Capacity 355 ug/dL 250-450 [facility] Vitamin D 25-Hydroxy 33.7 ng/mL [facility] Comment on above: Vitamin D 25(OH) Sta tus Range Deficiency <20 ng/mL (50nmol/L) Insufficiency 20 - 30 ng/mL (50 - 75 nmol/L) Sufficiency 30 - 100 ng/mL (75 - 250 nmol/L) Toxicity >100 ng/mL (>250 nmol/L) Platelets bldOrdered By: Roxi Diaz on 12-31-2022 Platelets (Bld) [#/Vol] 265 10*3/uL 150-450 [facility] Protein Fractions Elph [Inte rp]Ordered By: Fany Diaz on 12-31-2022 Protein Fractions [Interp] Comment . [facility] Comment on above: Protein electrophore sis scan will follow via computer,mail, or department of mathematics chair delivery. Protein Test strip Ql (U)Ord ered By: Fany Diaz on 12-31-2022 Protein Ql (U) 15 mg/dl Negative [facility] Serum albumin to globulin ra balaji by protein electrophoresisOrdered By: Fany Diaz on 12-31-2022 Albumin/Globulin Elph [Mass ratio] 0.8 0.7-1.7 [facility] Serum globulin measurement ( mass/volume)Ordered By: Fany Diaz on 12-31-2022 Globulin (S) [Mass/Vol] 4.1 g/dL 2.2-3.9 [facility] Serum or plasma albumin grazyna urement (mass/volume)Ordered By: Fany Diaz on 12-31-2022 Albumin [Mass/Vol] 3.3 g/dL 3.2-5.0 [facility] Serum or plasma beta globuli n measurement by electrophoresis (mass/volume)Ordered By: Fany Diaz on 12-31-2022 Beta globulin Elph [Mass/Vol] 1.1 g/dL 0.7-1.3 [facility] Serum or plasma calcium grazyna urement (mass/volume)Ordered By: Fany Diaz on 12-31-2022 Calcium [Mass/Vol] 8.7 mg/dL 8.5-10.1 [facility] Serum or plasma complement C 3 measurement (mass/volume)Ordered By: Fany Diaz on 12-31-2022 Complement C3 [Mass/Vol] 159 mg/dL 82-167 [facility] Comment on above: Performed at: [place] [id number] Director: Chance Morales PhD, Phone: [phone] Serum or plasma complement C 4 measurement (mass/volume)Ordered By: Fany Diaz on 12-31-2022 Complement C4 [Mass/Vol] 26 mg/dL 12-38 [facility] Serum or plasma creatinine m easurement (mass/volume)Ordered By: Fany Diaz on 12-31-2022 Creatinine [Mass/Vol] 1.26 mg/dL 0.70-1.30 [facility] Comment on above: The validity of the calculated GFR & GFRAA in patients over 70 years has not been determined. Clinical correlation is essential. Serum or plasma ferritin elizabeth surement (mass/volume)Ordered By: Fany Diaz on 12-31-2022 Ferritin [Mass/Vol] 37 ng/mL 26-388 [facility] Serum or plasma iron saturat ion measurement (mass fraction)Ordered By: Fany Diaz on 12-31-2022 Iron saturation [Mass fraction] 10.4 % 15.0-55.0 [facility] Serum or plasma urea nitroge n measurement (mass/volume)Ordered By: Fany Diaz on 12-31-2022 Urea nitrogen [Mass/Vol] 27 mg/dL 7-18 [facility] Serum or plasma uric acid me asurement (mass/volume)Ordered By: Fany Diaz on 12-31-2022 Urate [Mass/Vol] 8.2 mg/dL 3.5-7.2 [facility] Comment on above: The drugs N-Acetylcy steine and Metamizole may falsely depress this assay. Thin prep Papanicolaou smear with manual screeningOrdered By: Fany Diaz on 12-31-2022 Thin prep Papanicolaou smear with manual screening See comment [facility] Comment on above: NOT OBSERVED Total protein bloodOrdered B y: Fany Diaz on 12-31-2022 Protein [Mass/Vol] 7.5 g/dL 6.0-8.5 [facility] Urine blood detectionOrdered By: Fany Diaz on 12-31-2022 RBC Ql (U) Negative Negative [facility] Urine clarityOrdered By: Roxi Diaz on 12-31-2022 Clarity (U) Sl. Cloudy Clear [facility] Urine color determinationOrd ered By: Fany Diaz on 12-31-2022 Color (U) Yellow Yellow [facility] Urine creatinine measurement (mass/volume)Ordered By: Fany Diaz on 12-31-2022 Creatinine (U) [Mass/Vol] 95.50 mg/dL NO RANGE EST. [facility] Urine glucose detectionOrder ed By: Fany Diaz on 12-31-2022 Glucose Ql (U) Normal mg/dl Normal [facility] Urine leukocyte esterase det ection by dipstickOrdered By: Fany Diaz on 12-31-2022 Leukocyte esterase Test strip Ql (U) Negative Negative [facility] Urine pHOrdered By: Fany Diaz on 12-31-2022 pH (U) 5.0 [pH] 5.0 - 8.0 [facility] Urine protein measurement (m ass/volume)Ordered By: Fany Diaz on 12-31-2022 Protein (U) [Mass/Vol] 15.7 mg/dL 0.0-11.8 [facility] Urine specific gravity measu rementOrdered By: Fany Diaz on 12-31-2022 Specific gravity (U) [Rel density] 1.015 1.002-1.030 [facility] Urobilinogen Auto test strip Ql (U)Ordered By: Fany Diaz on 12-31-2022 Urobilinogen Ql (U) Normal mg/dl Normal [facility] Laboratory - Hematology and Cell countson 12-10-2022 HbA1c (Bld) [Mass fraction] 7.1 % 4.2-6.3 [facility] Laboratory - Chemistry and C hemistry - challengeOrdered By: Brandt Winter on 11-07-2022 Natriuretic peptide B (Bld) [Mass/Vol] 9.7 pg/mL 0-100 [facility] T4 [Mass/Vol] 10.9 ug/dL 4.5-12.1 [facility] No Panel InformationOrdered By: [facility] on 11-07-2022 Thyroid Stimulating Hormone (TSH) 0.27 uIU/mL 0.358-3.74 [facility] Total Triiodothyronine 1.16 ng/mL 0.6-1.81 [facility] Absolute lymphocyte countOrd ered By: Brandt Winter on 10-31-2022 Lymphocytes Auto (Unsp spec) [#/Vol] 1.83 10*3/uL 0.83-4.51 [facility] Basophil percentageOrdered B y: Brandt Winter on 10-31-2022 Basophils/100 WBC (Bld) 0.6 % 0-1 [facility] Bilirubin [Mass/Vol] 0.60 mg/dL 0.20-1.00 [facility] Comment on above: For patients on eltr ombopag therapy, use of Dimension Lennon TBIL is not recommended. Chloride [Moles/Vol] 107 mmol/L 98-107 [facility] Eosinophils/100 WBC (Bld) 3.8 % 0-5 [facility] Glucose [Mass/Vol] 119 mg/dL 74-106 [facility] Comment on above: Fasting Glucose resu lt from 100 to 125 mg/dL suggests IMPAIRED HOMEOSTASIS per A.D.A. criteria. Neutrophils (Bld) [#/Vol] 4.7 10*3/uL 2.0-7.7 [facility] Neutrophils/100 WBC (Bld) 59.2 % 47-70 [facility] Potassium [Moles/Vol] 4.9 mmol/L 3.5-5.1 [facility] Protein [Mass/Vol] 8.9 g/dL 6.4-8.2 [facility] Sodium [Moles/Vol] 135 mmol/L 136-145 [facility] WBC (Bld) [#/Vol] 7.9 10*3/uL 4.4-11.0 [facility] Blood erythrocytes count (nu mber/volume)Ordered By: Brandt Winter on 10-31-2022 RBC (Bld) [#/Vol] 3.94 10*6/uL 4.6-6.2 [facility] Blood hemoglobin measurement (mass/volume)Ordered By: Brandt Witner on 10-31-2022 Hemoglobin (Bld) [Mass/Vol] 10.4 g/dL 13.0-16.5 [facility] Blood lymphocytes/100 leukoc ytesOrdered By: Brandt Winter on 10-31-2022 Lymphocytes/100 WBC (Bld) 23.2 % 19-41 [facility] Blood monocytes/100 leukocyt esOrdered By: Brandt Winter on 10-31-2022 Monocytes/100 WBC (Bld) 12.7 % 0-10 [facility] Blood platelet mean volumeOr dered By: Brandt Winter on 10-31-2022 Platelet mean volume (Bld) [Entitic vol] 10.2 fL 6.2-12.0 [facility] Determination of erythrocyte mean corpuscular volume (MCV)Ordered By: Brandt Winter on 10-31-2022 MCV (RBC) [Entitic vol] 81.0 fL 80-94 [facility] Hematocrit Auto (Bld) [Volum e fraction]Ordered By: Brandt Winter on 10-31-2022 Hematocrit (Bld) [Volume fraction] 31.9 % 40-54 [facility] Iron measurement (mass/mass) Ordered By: Brandt Winter on 10-31-2022 Iron (Unsp spec) [Mass/Mass] 35 ug/dL 65-175 [facility] Laboratory - Chemistry and C hemistry - challengeOrdered By: Brandt Winter on 10-31-2022 ALP [Catalytic activity/Vol] 103 U/L 45-117 [facility] ALT [Catalytic activity/Vol] 24 U/L 16-61 [facility] CO2 [Moles/Vol] 19.0 mmol/L 21.0-32.0 [facility] Globulin (S) [Mass/Vol] 5.8 g/dL 2.2-4.2 [facility] Urea nitrogen/Creatinine [Mass ratio] 27.0 mg/mg 10-20 [facility] Laboratory - Hematology and Cell countsOrdered By: Brandt Winter on 10-31-2022 Erythrocyte distribution width (RBC) [Entitic vol] 49.3 fL 35.1-43.9 [facility] Erythrocyte distribution width (RBC) [Ratio] 16.7 % 11.6-14.6 [facility] Immature granulocytes/100 WBC (Bld) 0.500 % 0.0-0.9 [facility] Comment on above: IG% - Immature Granu locytes (promyelocytes, myelocytes and metamyelocytes) > 1% indicates that a LEFT SHIFT is Present. MCH (RBC) [Entitic mass] 26.4 pg 27.0-32.0 [facility] Nucleated RBC/100 WBC (Bld) [Ratio] 0 % 0-5 [facility] MCHC Auto (RBC) [Mass/Vol]Or dered By: Brandt Winter on 10-31-2022 MCHC (RBC) [Mass/Vol] 32.6 g/dL 32-36 [facility] No Panel InformationOrdered By: Brandt Winter on 10-31-2022 Estimated GFR (MDRD) Amer 61 mL/min >60 [facility] Comment on above: GFR Calc Estimated GFR (MDRD) Non-Af Amer 50 mL/min >60 [facility] Comment on above: Non- GFR Calc Thyroid Stimulating Hormone (TSH) 0.23 uIU/mL 0.358-3.74 [facility] Total Iron Binding Capacity 274 ug/dL 250-450 [facility] Vitamin D 25-Hydroxy 12.1 ng/mL [facility] Comment on above: Vitamin D 25(OH) Sta tus Range Deficiency <20 ng/mL (50nmol/L) Insufficiency 20 - 30 ng/mL (50 - 75 nmol/L) Sufficiency 30 - 100 ng/mL (75 - 250 nmol/L) Toxicity >100 ng/mL (>250 nmol/L) Platelets bldOrdered By: Ximena Winter on 10-31-2022 Platelets (Bld) [#/Vol] 253 10*3/uL 150-450 [facility] Serum or plasma albumin grazyna urement (mass/volume)Ordered By: Brandt Winter on 10-31-2022 Albumin [Mass/Vol] 3.1 g/dL 3.2-5.0 [facility] Serum or plasma albumin/glob ulin mass ratioOrdered By: Brandt Winter on 10-31-2022 Albumin/Globulin [Mass ratio] 0.5 {ratio} 0.9-2.4 [facility] Serum or plasma calcium grazyna urement (mass/volume)Ordered By: Brandt Winter on 10-31-2022 Calcium [Mass/Vol] 9.1 mg/dL 8.5-10.1 [facility] Serum or plasma creatinine m easurement (mass/volume)Ordered By: Brandt Winter on 10-31-2022 Creatinine [Mass/Vol] 1.52 mg/dL 0.70-1.30 [facility] Comment on above: The validity of the calculated GFR & GFRAA in patients over 70 years has not been determined. Clinical correlation is essential. Serum or plasma ferritin elizabeth surement (mass/volume)Ordered By: Brandt Winter on 10-31-2022 Ferritin [Mass/Vol] 158 ng/mL 26-388 [facility] Serum or plasma iron saturat ion measurement (mass fraction)Ordered By: Brandt Winter on 10-31-2022 Iron saturation [Mass fraction] 12.8 % 15.0-55.0 [facility] Serum or plasma urea nitroge n measurement (mass/volume)Ordered By: Brandt Winter on 10-31-2022 Urea nitrogen [Mass/Vol] 41 mg/dL 7-18 [facility] Thin prep Papanicolaou smear with manual screeningOrdered By: Brandt Winter on 10-31-2022 Thin prep Papanicolaou smear with manual screening 22 U/L 15-37 [facility] Thin prep Papanicolaou smear with manual screening 9 5-15 [facility] Glucose Glucometer (BldC) [M ass/Vol]Ordered By: Dr. Ospina on 08-03-2022 Glucose [Mass/Vol] 343 mg/dL 74-106 [facility] Comment on above: MANAGEMENT OF PATIEN T CARE PER NURSING PROTOCOL Absolute lymphocyte countOrd ered By: Dr. Bell on 08-02-2022 Lymphocytes Auto (Unsp spec) [#/Vol] 1.27 10*3/uL 0.83-4.51 [facility] Basophil percentageOrdered B y: Dr. Bell on 08-02-2022 Basophils/100 WBC (Bld) 0.8 % 0-1 [facility] Bilirubin [Mass/Vol] 0.50 mg/dL 0.20-1.00 [facility] Comment on above: For patients on eltr ombopag therapy, use of Dimension Lennon TBIL is not recommended. Chloride [Moles/Vol] 104 mmol/L 98-107 [facility] Cholesterol [Mass/Vol] 133 mg/dL <200 [facility] Comment on above: <200 mg/dL Desirable 200-240 mg/dL Borderline >240 mg/dL High Risk Eosinophils/100 WBC (Bld) 3.1 % 0-5 [facility] Glucose [Mass/Vol] 280 mg/dL 74-106 [facility] Comment on above: Glucose result great er than or equal to 200 mg/dLsuggests DIABETES MELLITUS per A.D.A. criteria. Neutrophils (Bld) [#/Vol] 3.5 10*3/uL 2.0-7.7 [facility] Neutrophils/100 WBC (Bld) 59.7 % 47-70 [facility] Potassium [Moles/Vol] 4.0 mmol/L 3.5-5.1 [facility] Protein [Mass/Vol] 7.6 g/dL 6.4-8.2 [facility] Sodium [Moles/Vol] 135 mmol/L 136-145 [facility] Triglyceride [Mass/Vol] 300 mg/dL <199 [facility] Comment on above: The drugs N-Acetylcy steine and Metamizole may falsely depress this assay.Serum Triglycerides Reference Interval Normal <150 mg/dL Borderline high 150 - 199 mg/dL High 200 - 499 mg/dL Very High > or = 500 mg/dL WBC (Bld) [#/Vol] 5.9 10*3/uL 4.4-11.0 [facility] Blood erythrocytes count (nu mber/volume)Ordered By: Dr. Bell on 08-02-2022 RBC (Bld) [#/Vol] 4.27 10*6/uL 4.6-6.2 [facility] Blood hemoglobin measurement (mass/volume)Ordered By: Dr. Bell on 08-02-2022 Hemoglobin (Bld) [Mass/Vol] 10.7 g/dL 13.0-16.5 [facility] Blood lymphocytes/100 leukoc ytesOrdered By: Dr. Bell on 08-02-2022 Lymphocytes/100 WBC (Bld) 21.5 % 19-41 [facility] Blood monocytes/100 leukocyt esOrdered By: Dr. Bell on 08-02-2022 Monocytes/100 WBC (Bld) 14.4 % 0-10 [facility] Blood platelet mean volumeOr dered By: Dr. Bell on 08-02-2022 Platelet mean volume (Bld) [Entitic vol] 9.9 fL 6.2-12.0 [facility] Determination of erythrocyte mean corpuscular volume (MCV)Ordered By: Dr. Bell on 08-02-2022 MCV (RBC) [Entitic vol] 78.9 fL 80-94 [facility] Hematocrit Auto (Bld) [Volum e fraction]Ordered By: Dr. Bell on 08-02-2022 Hematocrit (Bld) [Volume fraction] 33.7 % 40-54 [facility] Laboratory - Chemistry and C hemistry - challengeOrdered By: Dr. Bell on 08-02-2022 ALP [Catalytic activity/Vol] 118 U/L 45-117 [facility] ALT [Catalytic activity/Vol] 25 U/L 16-61 [facility] CO2 [Moles/Vol] 20.0 mmol/L 21.0-32.0 [facility] Globulin (S) [Mass/Vol] 4.4 g/dL 2.2-4.2 [facility] Urea nitrogen/Creatinine [Mass ratio] 21.7 mg/mg 10-20 [facility] Laboratory - Hematology and Cell countsOrdered By: Dr. Bell on 08-02-2022 Erythrocyte distribution width (RBC) [Entitic vol] 46.5 fL 35.1-43.9 [facility] Erythrocyte distribution width (RBC) [Ratio] 16.4 % 11.6-14.6 [facility] Immature granulocytes/100 WBC (Bld) 0.500 % 0.0-0.9 [facility] Comment on above: IG% - Immature Granu locytes (promyelocytes, myelocytes and metamyelocytes) > 1% indicates that a LEFT SHIFT is Present. MCH (RBC) [Entitic mass] 25.1 pg 27.0-32.0 [facility] Nucleated RBC/100 WBC (Bld) [Ratio] 0 % 0-5 [facility] MCHC Auto (RBC) [Mass/Vol]Or dered By: Dr. Bell on 08-02-2022 MCHC (RBC) [Mass/Vol] 31.8 g/dL 32-36 [facility] No Panel InformationOrdered By: Dr. Bell on 08-02-2022 Estimated Creatinine Clearance Calc 83.01 ml/min [facility] Estimated GFR (MDRD) Amer 102 mL/min >60 [facility] Comment on above: GFR Calc Estimated GFR (MDRD) Non-Af Amer 84 mL/min >60 [facility] Comment on above: Non- GFR Calc Thyroid Stimulating Hormone (TSH) 1.36 uIU/mL 0.358-3.74 [facility] Platelets bldOrdered By: Dr. Bell on 08-02-2022 Platelets (Bld) [#/Vol] 193 10*3/uL 150-450 [facility] Serum or plasma albumin grazyna urement (mass/volume)Ordered By: Dr. Bell on 08-02-2022 Albumin [Mass/Vol] 3.2 g/dL 3.2-5.0 [facility] Serum or plasma albumin/glob ulin mass ratioOrdered By: Dr. Bell on 08-02-2022 Albumin/Globulin [Mass ratio] 0.7 {ratio} 0.9-2.4 [facility] Serum or plasma calcium grazyna urement (mass/volume)Ordered By: Dr. Bell on 08-02-2022 Calcium [Mass/Vol] 9.0 mg/dL 8.5-10.1 [facility] Serum or plasma cholesterol in HDL measurement (mass/volume)Ordered By: Dr. Bell on 08-02-2022 Cholesterol in HDL [Mass/Vol] 33 mg/dL >40 [facility] Comment on above: The drugs N-Acetylcy steine and Metamizole may falsely depress this assay. Reference Range HDL <40 mg/dL Low HDL Cholesterol HDL >or= 60 mg/dL High HDL Cholesterol Serum or plasma cholesterol in VLDL measurement (mass/volume)Ordered By: Dr. Bell on 08-02-2022 Cholesterol in VLDL [Mass/Vol] 60 mg/dL 5-40 [facility] Serum or plasma creatinine m easurement (mass/volume)Ordered [...] Cholesterol in LDL [Mass/Vol] 40 mg/dL 0-130 [facility] Serum or plasma urea nitroge n measurement (mass/volume)Ordered By: Dr. Bell on 08-02-2022 Urea nitrogen [Mass/Vol] 21 mg/dL 7-18 [facility] Thin prep Papanicolaou smear with manual screeningOrdered By: Dr. Bell on 08-02-2022 Thin prep Papanicolaou smear with manual screening 18 U/L 15-37 [facility] Thin prep Papanicolaou smear with manual screening 11 5-15 [facility] Whole blood hemoglobin A1c/t otal hemoglobin ratio (mass fraction)Ordered By: Dr. Bell on 08-02-2022 HbA1c (Bld) [Mass fraction] 9.6 % 3.8-5.6 [facility] Comment on above: Normal < 5.7 % Predi abetic 5.7 - 6.4 % Diabetic >or= 6.5 % Please note range changes. INR in Blood by Coagulation assayOrdered By: ED PROVIDER on 08-01-2022 INR Coag (Bld) [Relative time] 1.1 {INR} [facility] Laboratory - Chemistry and C hemistry - challengeOrdered By: Dr. Bell on 08-01-2022 Magnesium [Mass/Vol] 1.7 mg/dL 1.6-2.6 [facility] Laboratory - CoagulationOrde red By: ED PROVIDER on 08-01-2022 aPTT Coag (Bld) [Time] 28.7 s 24.1-36.2 [facility] PT Coag (PPP) [Time] 13.8 s 11.7-14.9 [facility] No Panel InformationOrdered By: Dr. Hill on 08-01-2022 Troponin I High Sensitivity 9 pg/mL 3.0-78.0 [facility] Comment on above: Please Note: New Karly t Units and Gender Specific Reference Ranges. For more information see Policy Stat Procedure Lennon High Sensitivity Troponin (TNIH) and attachments. Basophil percentageOrdered B y: Oren Sky on 06-26-2022 Chloride [Moles/Vol] 104 mmol/L 98-107 [facility] Glucose [Mass/Vol] 224 mg/dL 74-106 [facility] Comment on above: Glucose result great er than or equal to 200 mg/dLsuggests DIABETES MELLITUS per A.D.A. criteria. Potassium [Moles/Vol] 4.6 mmol/L 3.5-5.1 [facility] Sodium [Moles/Vol] 134 mmol/L 136-145 [facility] Basophil percentageOrdered B y: Jessica Gerardo on 06-26-2022 Cholesterol [Mass/Vol] 145 mg/dL <200 [facility] Comment on above: <200 mg/dL Desirable 200-240 mg/dL Borderline >240 mg/dL High Risk Testosterone [Mass/Vol] 122 ng/dL 264-916 [facility] Comment on above: Adult male reference interval is based on a population ofhealthy nonobese males (BMI <30) between 19 and 39 yearsold. nicol Arroyo.[email or web address]. JCEM 2017,102;[id number]. PMID:[id number]. Triglyceride [Mass/Vol] 271 mg/dL <199 [facility] Comment on above: The drugs N-Acetylcy steine and Metamizole may falsely depress this assay.Serum Triglycerides Reference Interval Normal <150 mg/dL Borderline high 150 - 199 mg/dL High 200 - 499 mg/dL Very High > or = 500 mg/dL Free testosterone percentage Ordered By: Jessica Gerardo on 06-26-2022 Testosterone Free/Testosterone.total [Mass fraction] 3.10 % 1.50-4.20 [facility] Comment on above: Performed at: [facility] [employer] [address] [id number] Director: Chance Morales PhD, Phone: [phone] at: - [facility] [address] [id number] Director: Rhina Norris MD, Phone: [phone] Laboratory - Chemistry and C hemistry - challengeOrdered By: Oren Sky on 06-26-2022 CO2 [Moles/Vol] 23.0 mmol/L 21.0-32.0 [facility] Urea nitrogen/Creatinine [Mass ratio] 30.7 mg/mg 10-20 [facility] Laboratory - Chemistry and C hemistry - challengeOrdered By: Jessica Gerardo on 06-26-2022 Free T4 [Mass/Vol] 1.33 ng/dL 0.76-1.46 [facility] No Panel InformationOrdered By: Oren Sky on 06-26-2022 Estimated GFR (MDRD) Amer 60 mL/min >60 [facility] Comment on above: GFR Calc Estimated GFR (MDRD) Non-Af Amer 50 mL/min >60 [facility] Comment on above: Non- GFR Calc No Panel InformationOrdered By: Jessica Gerardo on 06-26-2022 Thyroid Stimulating Hormone (TSH) 1.59 uIU/mL 0.358-3.74 [facility] Urine Microalbumin/Creatinine Ratio 72.5 mg/g CRE <30 [facility] Serum or plasma calcium grazyna urement (mass/volume)Ordered By: Oren Sky on 06-26-2022 Calcium [Mass/Vol] 9.0 mg/dL 8.5-10.1 [facility] Serum or plasma cholesterol in HDL measurement (mass/volume)Ordered By: Jessica Gerardo on 06-26-2022 Cholesterol in HDL [Mass/Vol] 36 mg/dL >40 [facility] Comment on above: The drugs N-Acetylcy steine and Metamizole may falsely depress this assay. Reference Range HDL <40 mg/dL Low HDL Cholesterol HDL >or= 60 mg/dL High HDL Cholesterol Serum or plasma cholesterol in VLDL measurement (mass/volume)Ordered By: Jessica Gerardo on 06-26-2022 Cholesterol in VLDL [Mass/Vol] 54 mg/dL 5-40 [facility] Serum or plasma creatinine m easurement (mass/volume)Ordered By: Oren Sky on 06-26-2022 Creatinine [Mass/Vol] 1.53 mg/dL 0.70-1.30 [facility] Comment on above: The validity of the calculated GFR & GFRAA in patients over 70 years has not been determined. Clinical correlation is essential. Serum or plasma low density lipoprotein (LDL) cholesterol measurement (mass/volume)Ordered By: Jessica Gerardo on 06-26-2022 Cholesterol in LDL [Mass/Vol] 55 mg/dL 0-130 [facility] Serum or plasma testosterone free measurement (mass/volume)Ordered By: Jessica Gerardo on 06-26-2022 Testosterone Free [Mass/Vol] 3.78 ng/dL 5.00-21.00 [facility] Serum or plasma urea nitroge n measurement (mass/volume)Ordered By: Oren Sky on 06-26-2022 Urea nitrogen [Mass/Vol] 47 mg/dL 7-18 [facility] Thin prep Papanicolaou smear with manual screeningOrdered By: Oren Sky on 06-26-2022 Thin prep Papanicolaou smear with manual screening 7 5-15 [facility] Thin prep Papanicolaou smear with manual screeningOrdered By: Jessica Gerardo on 06-26-2022 Thin prep Papanicolaou smear with manual screening 51.1 mg/L NO RANGE EST. [facility] Urine creatinine measurement (mass/volume)Ordered By: Jessica Gerardo on 06-26-2022 Creatinine (U) [Mass/Vol] 70.50 mg/dL NO RANGE EST. [facility] Laboratory - Hematology and Cell countson 06-18-2022 HbA1c (Bld) [Mass fraction] 8.2 % [facility] [facility] Basophil percentageOrdered B y: Lydia Segura on 05-18-2022 Chloride [Moles/Vol] 106 mmol/L 98-107 [facility] Glucose [Mass/Vol] 251 mg/dL 74-106 [facility] Comment on above: Glucose result great er than or equal to 200 mg/dLsuggests DIABETES MELLITUS per A.D.A. criteria. Potassium [Moles/Vol] 3.8 mmol/L 3.5-5.1 [facility] Sodium [Moles/Vol] 135 mmol/L 136-145 [facility] Laboratory - Chemistry and C hemistry - challengeOrdered By: Lydia Segura on 05-18-2022 CO2 [Moles/Vol] 21.0 mmol/L 21.0-32.0 [facility] Urea nitrogen/Creatinine [Mass ratio] 19.4 mg/mg 10-20 [facility] No Panel InformationOrdered By: Lydia Segura on 05-18-2022 Estimated GFR (MDRD) Amer 90 mL/min >60 [facility] Comment on above: GFR Calc Estimated GFR (MDRD) Non-Af Amer 75 mL/min >60 [facility] Comment on above: Non- GFR Calc Serum or plasma calcium grazyna urement (mass/volume)Ordered By: Lydia Segura on 05-18-2022 Calcium [Mass/Vol] 8.6 mg/dL 8.5-10.1 [facility] Serum or plasma creatinine m easurement (mass/volume)Ordered [...] 05-18-2022 Urea nitrogen [Mass/Vol] 21 mg/dL 7-18 [facility] Thin prep Papanicolaou smear with manual screeningOrdered By: Lydia Segura on 05-18-2022 Thin prep Papanicolaou smear with manual screening 8 5-15 [facility] Absolute lymphocyte countOrd ered By: Oren Sky on 04-17-2022 Lymphocytes Auto (Unsp spec) [#/Vol] 2.25 10*3/uL 0.83-4.51 [facility] Basophil percentageOrdered B y: Oren Sky on 04-17-2022 Basophils/100 WBC (Bld) 1.1 % 0-1 [facility] Chloride [Moles/Vol] 102 mmol/L 98-107 [facility] Eosinophils/100 WBC (Bld) 3.3 % 0-5 [facility] Glucose [Mass/Vol] 263 mg/dL 74-106 [facility] Comment on above: Glucose result great er than or equal to 200 mg/dLsuggests DIABETES MELLITUS per A.D.A. criteria. Neutrophils (Bld) [#/Vol] 5.0 10*3/uL 2.0-7.7 [facility] Neutrophils/100 WBC (Bld) 59.8 % 47-70 [facility] Potassium [Moles/Vol] 4.0 mmol/L 3.5-5.1 [facility] Sodium [Moles/Vol] 135 mmol/L 136-145 [facility] WBC (Bld) [#/Vol] 8.4 10*3/uL 4.4-11.0 [facility] Blood erythrocytes count (nu mber/volume)Ordered By: Oren Sky on 04-17-2022 RBC (Bld) [#/Vol] 4.44 10*6/uL 4.6-6.2 [facility] Blood hemoglobin measurement (mass/volume)Ordered By: Oren Sky on 04-17-2022 Hemoglobin (Bld) [Mass/Vol] 11.1 g/dL 13.0-16.5 [facility] Blood lymphocytes/100 leukoc ytesOrdered By: Oren Sky on 04-17-2022 Lymphocytes/100 WBC (Bld) 26.8 % 19-41 [facility] Blood monocytes/100 leukocyt esOrdered By: Oren Sky on 04-17-2022 Monocytes/100 WBC (Bld) 8.6 % 0-10 [facility] Blood platelet mean volumeOr dered By: Oren Sky on 04-17-2022 Platelet mean volume (Bld) [Entitic vol] 10.3 fL 6.2-12.0 [facility] Determination of erythrocyte mean corpuscular volume (MCV)Ordered By: Oren Sky on 04-17-2022 MCV (RBC) [Entitic vol] 80.2 fL 80-94 [facility] Hematocrit Auto (Bld) [Volum e fraction]Ordered By: Oren Sky on 04-17-2022 Hematocrit (Bld) [Volume fraction] 35.6 % 40-54 [facility] Iron measurement (mass/mass) Ordered By: Oren Sky on 04-17-2022 Iron (Unsp spec) [Mass/Mass] 48 ug/dL 65-175 [facility] Laboratory - Chemistry and C hemistry - challengeOrdered By: Oren Sky on 04-17-2022 CO2 [Moles/Vol] 22.0 mmol/L 21.0-32.0 [facility] Natriuretic peptide B (Bld) [Mass/Vol] 37.2 pg/mL 0-100 [facility] Urea nitrogen/Creatinine [Mass ratio] 25.8 mg/mg 10-20 [facility] Laboratory - Hematology and Cell countsOrdered By: Oren Sky on 04-17-2022 Erythrocyte distribution width (RBC) [Entitic vol] 50.0 fL 35.1-43.9 [facility] Erythrocyte distribution width (RBC) [Ratio] 17.2 % 11.6-14.6 [facility] Immature granulocytes/100 WBC (Bld) 0.400 % 0.0-0.9 [facility] Comment on above: IG% - Immature Granu locytes (promyelocytes, myelocytes and metamyelocytes) > 1% indicates that a LEFT SHIFT is Present. MCH (RBC) [Entitic mass] 25.0 pg 27.0-32.0 [facility] Nucleated RBC/100 WBC (Bld) [Ratio] 0 % 0-5 [facility] MCHC Auto (RBC) [Mass/Vol]Or dered By: Oren Sky on 04-17-2022 MCHC (RBC) [Mass/Vol] 31.2 g/dL 32-36 [facility] No Panel InformationOrdered By: Oren Sky on 04-17-2022 Estimated GFR (MDRD) Amer 77 mL/min >60 [facility] Comment on above: GFR Calc Estimated GFR (MDRD) Non-Af Amer 64 mL/min >60 [facility] Comment on above: Non- GFR Calc Total Iron Binding Capacity 350 ug/dL 250-450 [facility] Platelets bldOrdered By: Jose Sky on 04-17-2022 Platelets (Bld) [#/Vol] 268 10*3/uL 150-450 [facility] Serum or plasma calcium grazyna urement (mass/volume)Ordered By: Oren Sky on 04-17-2022 Calcium [Mass/Vol] 8.9 mg/dL 8.5-10.1 [facility] Serum or plasma creatinine m easurement (mass/volume)Ordered [...] Iron saturation [Mass fraction] 13.7 % 15.0-55.0 [facility] Serum or plasma urea nitroge n measurement (mass/volume)Ordered By: Oren Sky on 04-17-2022 Urea nitrogen [Mass/Vol] 32 mg/dL 7-18 [facility] Thin prep Papanicolaou smear with manual screeningOrdered By: Oren Sky on 04-17-2022 Thin prep Papanicolaou smear with manual screening 11 5-15 [facility] Laboratory - Hematology and Cell countson 01-15-2022 HbA1c (Bld) [Mass fraction] 8.3 % [facility] Absolute lymphocyte counton 09-04-2021 Lymphocytes Auto (Unsp spec) [#/Vol] 1.59 10*3/uL 0.83-4.51 [facility] Work Phone: Basophil percentageon 2021 Basophils/100 WBC (Bld) 0.5 % 0-1 [facility] Work Phone: Bilirubin [Mass/Vol] 0.60 mg/dL 0.20-1.00 [facility] Work Phone: Comment on above: For patients on eltr ombopag therapy, use of Dimension Lennon TBIL is not recommended. Chloride [Moles/Vol] 107 mmol/L 98-107 [facility] Work Phone: Eosinophils/100 WBC (Bld) 3.6 % 0-5 [facility] Work Phone: Glucose [Mass/Vol] 174 mg/dL 74-106 [facility] Work Phone: Comment on above: Fasting Glucose resu lt greater than or equal to 126 mg/dL suggests DIABETES MELLITUS per A.D.A. criteria. Neutrophils (Bld) [#/Vol] 4.8 10*3/uL 2.0-7.7 [facility] Work Phone: Neutrophils/100 WBC (Bld) 63.3 % 47-70 [facility] Work Phone: Potassium [Moles/Vol] 4.0 mmol/L 3.5-5.1 [facility] Work Phone: Protein [Mass/Vol] 7.6 g/dL 6.4-8.2 [facility] Work Phone: Sodium [Moles/Vol] 138 mmol/L 136-145 [facility] Work Phone: WBC (Bld) [#/Vol] 7.5 10*3/uL 4.4-11.0 [facility] Work Phone: Blood erythrocytes count (nu mber/volume)on 09-04-2021 RBC (Bld) [#/Vol] 4.26 10*6/uL 4.6-6.2 [facility] Work Phone: Blood hemoglobin measurement (mass/volume)on 09-04-2021 Hemoglobin (Bld) [Mass/Vol] 11.0 g/dL 13.0-16.5 [facility] Work Phone: Blood lymphocytes/100 leukoc yteson 09-04-2021 Lymphocytes/100 WBC (Bld) 21.2 % 19-41 [facility] Work Phone: Blood monocytes/100 leukocyt eson 09-04-2021 Monocytes/100 WBC (Bld) 10.7 % 0-10 [facility] Work Phone: Blood platelet mean volumeon 09-04-2021 Platelet mean volume (Bld) [Entitic vol] 10.2 fL 6.2-12.0 [facility] Work Phone: [phone] Determination of erythrocyte mean corpuscular volume (MCV)on 09-04-2021 MCV (RBC) [Entitic vol] 81.5 fL 80-94 [facility] Work Phone: [phone] Hematocrit Auto (Bld) [Volum e fraction]on 09-04-2021 Hematocrit (Bld) [Volume fraction] 34.7 % 40-54 [facility] Work Phone: [phone] Laboratory - Chemistry and C hemistry - challengeon 09-04-2021 ALP [Catalytic activity/Vol] 92 U/L 45-117 [facility] Work Phone: [phone] ALT [Catalytic activity/Vol] 23 U/L 16-61 [facility] Work Phone: [phone] CO2 [Moles/Vol] 26.0 mmol/L 21.0-32.0 [facility] Work Phone: Globulin (S) [Mass/Vol] 4.5 g/dL 2.2-4.2 [facility] Work Phone: Natriuretic peptide B (Bld) [Mass/Vol] 105.8 pg/mL 0-100 [facility] Work Phone: [phone] Urea nitrogen/Creatinine [Mass ratio] 25.2 mg/mg 10-20 [facility] Work Phone: [phone] Laboratory - Hematology and Cell countson 09-04-2021 Erythrocyte distribution width (RBC) [Entitic vol] 46.4 fL 35.1-43.9 [facility] Work Phone: [phone] Erythrocyte distribution width (RBC) [Ratio] 15.7 % 11.6-14.6 [facility] Work Phone: Immature granulocytes/100 WBC (Bld) 0.700 % 0.0-0.9 [facility] Work Phone: Comment on above: IG% - Immature Granu locytes (promyelocytes, myelocytes and metamyelocytes) > 1% indicates that a LEFT SHIFT is Present. MCH (RBC) [Entitic mass] 25.8 pg 27.0-32.0 [facility] Work Phone: [phone] Nucleated RBC/100 WBC (Bld) [Ratio] 0 % 0-5 [facility] Work Phone: [phone] MCHC Auto (RBC) [Mass/Vol]on 09-04-2021 MCHC (RBC) [Mass/Vol] 31.7 g/dL 32-36 [facility] Work Phone: No Panel Informationon 09-04 Troponin I High Sensitivity 16 pg/mL 3.0-78.0 [facility] Work Phone: [phone] Comment on above: Please Note: New Karly t Units and Gender Specific Reference Ranges. For more information see Policy Stat Procedure Lennon High Sensitivity Troponin (TNIH) and attachments. Estimated Creatinine Clearance Calc 92.55 ml/min [facility] Work Phone: [phone] Estimated GFR (MDRD) Amer 115 mL/min >60 [facility] Work Phone: [phone] Comment on above: GFR Calc Estimated GFR (MDRD) Non-Af Amer 95 mL/min >60 [facility] Work Phone: [phone] Comment on above: Non- GFR Calc Platelets bldon 09-04-2021 Platelets (Bld) [#/Vol] 200 10*3/uL 150-450 [facility] Work Phone: [phone] Serum or plasma albumin grazyna urement (mass/volume)on 09-04-2021 Albumin [Mass/Vol] 3.1 g/dL 3.2-5.0 [facility] Work Phone: [phone] Serum or plasma albumin/glob ulin mass ratioon 09-04-2021 Albumin/Globulin [Mass ratio] 0.7 {ratio} 0.9-2.4 [facility] Work Phone: [phone] Serum or plasma calcium grazyna urement (mass/volume)on 09-04-2021 Calcium [Mass/Vol] 8.5 mg/dL 8.5-10.1 [facility] Work Phone: Serum or plasma creatinine m easurement (mass/volume)on 09-04-2021 Creatinine [Mass/Vol] 0.87 mg/dL 0.70-1.30 [facility] Work Phone: Comment on above: The validity of the calculated GFR & GFRAA in patients over 70 years has not been determined. Clinical correlation is essential. Serum or plasma urea nitroge n measurement (mass/volume)on 09-04-2021 Urea nitrogen [Mass/Vol] 22 mg/dL 7-18 [facility] Work Phone: Thin prep Papanicolaou smear with manual screeningon 09-04-2021 Thin prep Papanicolaou smear with manual screening 18 U/L 15-37 [facility] Work Phone: Thin prep Papanicolaou smear with manual screening 5 5-15 [facility] Work Phone: Absolute lymphocyte counton 07-16-2021 Lymphocytes Auto (Unsp spec) [#/Vol] 1.10 10*3/uL 0.83-4.51 [facility] Work Phone: Basophil percentageon 2021 Basophils/100 WBC (Bld) 0.7 % 0-1 [facility] Work Phone: Chloride [Moles/Vol] 105 mmol/L 98-107 [facility] Work Phone: Eosinophils/100 WBC (Bld) 3.2 % 0-5 [facility] Work Phone: Glucose [Mass/Vol] 283 mg/dL 74-106 [facility] Work Phone: Comment on above: Glucose result great er than or equal to 200 mg/dLsuggests DIABETES MELLITUS per A.D.A. criteria. Neutrophils (Bld) [#/Vol] 6.8 10*3/uL 2.0-7.7 [facility] Work Phone: Neutrophils/100 WBC (Bld) 76.6 % 47-70 [facility] Work Phone: Potassium [Moles/Vol] 3.9 mmol/L 3.5-5.1 [facility] Work Phone: [phone] Sodium [Moles/Vol] 138 mmol/L 136-145 [facility] Work Phone: [phone] WBC (Bld) [#/Vol] 8.8 10*3/uL 4.4-11.0 [facility] Work Phone: Blood erythrocytes count (nu mber/volume)on 07-16-2021 RBC (Bld) [#/Vol] 4.49 10*6/uL 4.6-6.2 [facility] Work Phone: Blood hemoglobin measurement (mass/volume)on 07-16-2021 Hemoglobin (Bld) [Mass/Vol] 11.8 g/dL 13.0-16.5 [facility] Work Phone: [phone] Blood lymphocytes/100 leukoc yteson 07-16-2021 Lymphocytes/100 WBC (Bld) 12.5 % 19-41 [facility] Work Phone: [phone] Blood monocytes/100 leukocyt eson 07-16-2021 Monocytes/100 WBC (Bld) 6.7 % 0-10 [facility] Work Phone: [phone] Blood platelet mean volumeon 07-16-2021 Platelet mean volume (Bld) [Entitic vol] 10.2 fL 6.2-12.0 [facility] Work Phone: Determination of erythrocyte mean corpuscular volume (MCV)on 07-16-2021 MCV (RBC) [Entitic vol] 82.9 fL 80-94 [facility] Work Phone: Hematocrit Auto (Bld) [Volum e fraction]on 07-16-2021 Hematocrit (Bld) [Volume fraction] 37.2 % 40-54 [facility] Work Phone: Laboratory - Chemistry and C hemistry - challengeon 07-16-2021 CO2 [Moles/Vol] 24.0 mmol/L 21.0-32.0 [facility] Work Phone: [phone] Natriuretic peptide B (Bld) [Mass/Vol] 59.2 pg/mL 0-100 [facility] Work Phone: [phone] Urea nitrogen/Creatinine [Mass ratio] 17.5 mg/mg 10-20 [facility] Work Phone: [phone] Laboratory - Hematology and Cell countson 07-16-2021 Erythrocyte distribution width (RBC) [Entitic vol] 47.2 fL 35.1-43.9 [facility] Work Phone: [phone] Erythrocyte distribution width (RBC) [Ratio] 15.9 % 11.6-14.6 [facility] Work Phone: [phone] Immature granulocytes/100 WBC (Bld) 0.300 % 0.0-0.9 [facility] Work Phone: [phone] Comment on above: IG% - Immature Granu locytes (promyelocytes, myelocytes and metamyelocytes) > 1% indicates that a LEFT SHIFT is Present. MCH (RBC) [Entitic mass] 26.3 pg 27.0-32.0 [facility] Work Phone: [phone] Nucleated RBC/100 WBC (Bld) [Ratio] 0 % 0-5 [facility] Work Phone: [phone] MCHC Auto (RBC) [Mass/Vol]on 07-16-2021 MCHC (RBC) [Mass/Vol] 31.7 g/dL 32-36 [facility] Work Phone: [phone] No Panel Informationon 07-16 Estimated Creatinine Clearance Calc 64.68 ml/min [facility] Work Phone: [phone] Estimated GFR (MDRD) Amer 76 mL/min >60 [facility] Work Phone: [phone] Comment on above: GFR Calc Estimated GFR (MDRD) Non-Af Amer 63 mL/min >60 [facility] Work Phone: [phone] Comment on above: Non- GFR Calc Troponin I High Sensitivity 10 pg/mL 3.0-78.0 [facility] Work Phone: Comment on above: Please Note: New Karly t Units and Gender Specific Reference Ranges. For more information see Policy Stat Procedure Lennon High Sensitivity Troponin (TNIH) and attachments. Platelets bldon 07-16-2021 Platelets (Bld) [#/Vol] 209 10*3/uL 150-450 [facility] Work Phone: Serum or plasma calcium grazyna urement (mass/volume)on 07-16-2021 Calcium [Mass/Vol] 8.7 mg/dL 8.5-10.1 [facility] Work Phone: Serum or plasma creatinine m easurement (mass/volume)on 07-16-2021 Creatinine [Mass/Vol] 1.26 mg/dL 0.70-1.30 [facility] Work Phone: Comment on above: The validity of the calculated GFR & GFRAA in patients over 70 years has not been determined. Clinical correlation is essential. Serum or plasma urea nitroge n measurement (mass/volume)on 07-16-2021 Urea nitrogen [Mass/Vol] 22 mg/dL 7-18 [facility] Work Phone: Thin prep Papanicolaou smear with manual screeningon 07-16-2021 Thin prep Papanicolaou smear with manual screening 9 5-15 [facility] Work Phone: Absolute lymphocyte counton 07-12-2021 Lymphocytes Auto (Unsp spec) [#/Vol] 1.80 10*3/uL 0.83-4.51 [facility] Work Phone: Basophil percentageon 2021 Basophils/100 WBC (Bld) 0.9 % 0-1 [facility] Work Phone: Chloride [Moles/Vol] 103 mmol/L 98-107 [facility] Work Phone: Eosinophils/100 WBC (Bld) 5.6 % 0-5 [facility] Work Phone: Glucose [Mass/Vol] 182 mg/dL 74-106 [facility] Work Phone: Comment on above: Fasting Glucose resu lt greater than or equal to 126 mg/dL suggests DIABETES MELLITUS per A.D.A. criteria. Neutrophils (Bld) [#/Vol] 5.1 10*3/uL 2.0-7.7 [facility] Work Phone: Neutrophils/100 WBC (Bld) 61.8 % 47-70 [facility] Work Phone: [phone] Potassium [Moles/Vol] 3.6 mmol/L 3.5-5.1 [facility] Work Phone: Sodium [Moles/Vol] 135 mmol/L 136-145 [facility] Work Phone: [phone] WBC (Bld) [#/Vol] 8.2 10*3/uL 4.4-11.0 [facility] Work Phone: [phone] Blood erythrocytes count (nu mber/volume)on 07-12-2021 RBC (Bld) [#/Vol] 4.31 10*6/uL 4.6-6.2 [facility] Work Phone: Blood hemoglobin measurement (mass/volume)on 07-12-2021 Hemoglobin (Bld) [Mass/Vol] 11.1 g/dL 13.0-16.5 [facility] Work Phone: Blood lymphocytes/100 leukoc yteson 07-12-2021 Lymphocytes/100 WBC (Bld) 22.0 % 19-41 [facility] Work Phone: Blood monocytes/100 leukocyt eson 07-12-2021 Monocytes/100 WBC (Bld) 9.3 % 0-10 [facility] Work Phone: Blood platelet mean volumeon 07-12-2021 Platelet mean volume (Bld) [Entitic vol] 10.2 fL 6.2-12.0 [facility] Work Phone: Determination of erythrocyte mean corpuscular volume (MCV)on 07-12-2021 MCV (RBC) [Entitic vol] 80.5 fL 80-94 [facility] Work Phone: [phone] Hematocrit Auto (Bld) [Volum e fraction]on 07-12-2021 Hematocrit (Bld) [Volume fraction] 34.7 % 40-54 [facility] Work Phone: [phone] Laboratory - Chemistry and C hemistry - challengeon 07-12-2021 CO2 [Moles/Vol] 24.0 mmol/L 21.0-32.0 [facility] Work Phone: [phone] Natriuretic peptide B (Bld) [Mass/Vol] 93.4 pg/mL 0-100 [facility] Work Phone: [phone] Urea nitrogen/Creatinine [Mass ratio] 22.0 mg/mg 10-20 [facility] Work Phone: [phone] Laboratory - Hematology and Cell countson 07-12-2021 Erythrocyte distribution width (RBC) [Entitic vol] 45.5 fL 35.1-43.9 [facility] Work Phone: [phone] Erythrocyte distribution width (RBC) [Ratio] 15.9 % 11.6-14.6 [facility] Work Phone: [phone] Immature granulocytes/100 WBC (Bld) 0.400 % 0.0-0.9 [facility] Work Phone: [phone] Comment on above: IG% - Immature Granu locytes (promyelocytes, myelocytes and metamyelocytes) > 1% indicates that a LEFT SHIFT is Present. MCH (RBC) [Entitic mass] 25.8 pg 27.0-32.0 [facility] Work Phone: [phone] Nucleated RBC/100 WBC (Bld) [Ratio] 0 % 0-5 [facility] Work Phone: [phone] MCHC Auto (RBC) [Mass/Vol]on 07-12-2021 MCHC (RBC) [Mass/Vol] 32.0 g/dL 32-36 [facility] Work Phone: [phone] No Panel Informationon 07-12 Estimated GFR (MDRD) Amer 99 mL/min >60 [facility] Work Phone: Comment on above: GFR Calc Estimated GFR (MDRD) Non-Af Amer 82 mL/min >60 [facility] Work Phone: Comment on above: Non- GFR Calc Thyroid Stimulating Hormone (TSH) 1.06 uIU/mL 0.358-3.74 [facility] Work Phone: Platelets bldon 07-12-2021 Platelets (Bld) [#/Vol] 223 10*3/uL 150-450 [facility] Work Phone: Serum or plasma calcium grazyna urement (mass/volume)on 07-12-2021 Calcium [Mass/Vol] 8.6 mg/dL 8.5-10.1 [facility] Work Phone: Serum or plasma creatinine m easurement (mass/volume)on 07-12-2021 Creatinine [Mass/Vol] 1.00 mg/dL 0.70-1.30 [facility] Work Phone: Comment on above: The validity of the calculated GFR & GFRAA in patients over 70 years has not been determined. Clinical correlation is essential. Serum or plasma urea nitroge n measurement (mass/volume)on 07-12-2021 Urea nitrogen [Mass/Vol] 22 mg/dL 7-18 [facility] Work Phone: Thin prep Papanicolaou smear with manual screeningon 07-12-2021 Thin prep Papanicolaou smear with manual screening 8 5-15 [facility] Work Phone: Laboratory - Hematology and Cell countson 06-29-2021 HbA1c (Bld) [Mass fraction] 8.9 % [facility] Work Phone: Absolute lymphocyte counton 06-19-2021 Lymphocytes Auto (Unsp spec) [#/Vol] 1.28 10*3/uL 0.83-4.51 [facility] Work Phone: Basophil percentageon 2021 Lactate [Moles/Vol] 2.1 mmol/L 0.4-2.0 [facility] Work Phone: Comment on above: Critical Result(s) C alled at: 14:08:57 06/19/2021 by: Danae Zaldivar to Marlen. Results read back by same. Basophil percentage 0 SEEN /hpf 0-5 [facility] Work Phone: Basophils/100 WBC (Bld) 0.5 % 0-1 [facility] Work Phone: Chloride [Moles/Vol] 104 mmol/L 98-107 [facility] Work Phone: Eosinophils/100 WBC (Bld) 2.6 % 0-5 [facility] Work Phone: Glucose [Mass/Vol] 191 mg/dL 74-106 [facility] Work Phone: Comment on above: Fasting Glucose resu lt greater than or equal to 126 mg/dL suggests DIABETES MELLITUS per A.D.A. criteria. Neutrophils (Bld) [#/Vol] 5.1 10*3/uL 2.0-7.7 [facility] Work Phone: Neutrophils/100 WBC (Bld) 69.5 % 47-70 [facility] Work Phone: Potassium [Moles/Vol] 3.9 mmol/L 3.5-5.1 [facility] Work Phone: Sodium [Moles/Vol] 137 mmol/L 136-145 [facility] Work Phone: WBC (Bld) [#/Vol] 7.4 10*3/uL 4.4-11.0 [facility] Work Phone: Bilirubin Test strip Ql (U)o n 06-19-2021 Bilirubin Ql (U) Negative Negative [facility] Work Phone: [phone] Blood erythrocytes count (nu mber/volume)on 06-19-2021 RBC (Bld) [#/Vol] 4.54 10*6/uL 4.6-6.2 [facility] Work Phone: Blood hemoglobin measurement (mass/volume)on 06-19-2021 Hemoglobin (Bld) [Mass/Vol] 12.0 g/dL 13.0-16.5 [facility] Work Phone: [phone] Blood lymphocytes/100 leukoc yteson 06-19-2021 Lymphocytes/100 WBC (Bld) 17.3 % 19-41 [facility] Work Phone: [phone] Blood monocytes/100 leukocyt eson 06-19-2021 Monocytes/100 WBC (Bld) 9.6 % 0-10 [facility] Work Phone: [phone] Blood platelet mean volumeon 06-19-2021 Platelet mean volume (Bld) [Entitic vol] 9.7 fL 6.2-12.0 [facility] Work Phone: [phone] Determination of erythrocyte mean corpuscular volume (MCV)on 06-19-2021 MCV (RBC) [Entitic vol] 79.7 fL 80-94 [facility] Work Phone: [phone] Hematocrit Auto (Bld) [Volum e fraction]on 06-19-2021 Hematocrit (Bld) [Volume fraction] 36.2 % 40-54 [facility] Work Phone: [phone] Ketones Test strip Ql (U)on 06-19-2021 Ketones Ql (U) Negative Negative [facility] Work Phone: [phone] Laboratory - Chemistry and C hemistry - challengeon 06-19-2021 CO2 [Moles/Vol] 26.0 mmol/L 21.0-32.0 [facility] Work Phone: [phone] Natriuretic peptide B (Bld) [Mass/Vol] 155.0 pg/mL 0-100 [facility] Work Phone: [phone] Urea nitrogen/Creatinine [Mass ratio] 14.6 mg/mg 10-20 [facility] Work Phone: [phone] Laboratory - Hematology and Cell countson 06-19-2021 Erythrocyte distribution width (RBC) [Entitic vol] 43.1 fL 35.1-43.9 [facility] Work Phone: [phone] Erythrocyte distribution width (RBC) [Ratio] 15.0 % 11.6-14.6 [facility] Work Phone: [phone] Immature granulocytes/100 WBC (Bld) 0.500 % 0.0-0.9 [facility] Work Phone: [phone] Comment on above: IG% - Immature Granu locytes (promyelocytes, myelocytes and metamyelocytes) > 1% indicates that a LEFT SHIFT is Present. MCH (RBC) [Entitic mass] 26.4 pg 27.0-32.0 [facility] Work Phone: [phone] Nucleated RBC/100 WBC (Bld) [Ratio] 0 % 0-5 [facility] Work Phone: [phone] MCHC Auto (RBC) [Mass/Vol]on 06-19-2021 MCHC (RBC) [Mass/Vol] 33.1 g/dL 32-36 [facility] Work Phone: [phone] Mucus LM Ql (Urine sed)on Mucus Ql (Urine sed) 0 SEEN /hpf [facility] Work Phone: [phone] Nitrite Test strip Ql (U)on 06-19-2021 Nitrite Ql (U) Negative Negative [facility] Work Phone: [phone] Panel Informationon 06-19 Troponin I High Sensitivity 31 pg/mL 3.0-78.0 [facility] Work Phone: [phone] Comment on above: Please Note: New Karly t Units and Gender Specific Reference Ranges. For more information see Policy Stat Procedure Lennon High Sensitivity Troponin (TNIH) and attachments. Estimated Creatinine Clearance Calc 84.90 ml/min [facility] Work Phone: [phone] Estimated GFR (MDRD) Amer 104 mL/min >60 [facility] Work Phone: [phone] Comment on above: GFR Calc Estimated GFR (MDRD) Non-Af Amer 86 mL/min >60 [facility] Work Phone: [phone] Comment on above: Non- GFR Calc Platelets bldon 06-19-2021 Platelets (Bld) [#/Vol] 216 10*3/uL 150-450 [facility] Work Phone: Protein Test strip Ql (U)on 06-19-2021 Protein Ql (U) 30 mg/dl Negative [facility] Work Phone: Serum or plasma calcium grazyna urement (mass/volume)on 06-19-2021 Calcium [Mass/Vol] 8.8 mg/dL 8.5-10.1 [facility] Work Phone: Serum or plasma creatinine m easurement (mass/volume)on 06-19-2021 Creatinine [Mass/Vol] 0.96 mg/dL 0.70-1.30 [facility] ster [facility] Work Phone: Comment on above: The validity of the calculated GFR & GFRAA in patients over 70 years has not been determined. Clinical correlation is essential. Serum or plasma urea nitroge n measurement (mass/volume)on 06-19-2021 Urea nitrogen [Mass/Vol] 14 mg/dL 7-18 [facility] Work Phone: Squamous epithelial cells de tection in urine sediment by light microscopyon 06-19-2021 Epithelial cells.squamous LM Ql (Urine sed) 0 SEEN /hpf 0-5 [facility] Work Phone: Thin prep Papanicolaou smear with manual screeningon 06-19-2021 Thin prep Papanicolaou smear with manual screening 7 5-15 [facility] Work Phone: Urine blood detectionon 05-31 RBC Ql (U) Negative Negative [facility] Work Phone: [phone] RBC Ql (U) 0 SEEN /hpf 0-5 [facility] Work Phone: Urine clarityon 06-19-2021 Clarity (U) Clear Clear [facility] Work Phone: Urine color determinationon 06-19-2021 Color (U) Yellow Yellow [facility] Work Phone: Urine glucose detectionon Glucose Ql (U) Normal mg/dl Normal [facility] Work Phone: Urine leukocyte esterase det ection by dipstickon 06-19-2021 Leukocyte esterase Test strip Ql (U) Negative Negative [facility] Work Phone: Urine pHon 06-19-2021 pH (U) 6.0 [pH] 5.0 - 8.0 [facility] Work Phone: Urine sediment bacteria coun t by microscopy (number/high power field)on 06-19-2021 Bacteria LM.HPF (Urine sed) [#/Area] 0 /[HPF] None Seen [facility] Work Phone: Urine specific gravity measu rementon 06-19-2021 Specific gravity (U) [Rel density] 1.015 1.002-1.030 [facility] Work Phone: [phone] Urobilinogen Auto test strip Ql (U)on 06-19-2021 Urobilinogen Ql (U) Normal mg/dl Normal [facility] Work Phone: No Panel Informationon 06-02 Urine Microalbumin/Creatinine Ratio 40.2 mg/g CRE <30 [facility] Work Phone: Thin prep Papanicolaou smear with manual screeningon 06-02-2021 Thin prep Papanicolaou smear with manual screening 22.8 mg/L NO RANGE EST. [facility] Work Phone: Urine creatinine measurement (mass/volume)on 06-02-2021 Creatinine (U) [Mass/Vol] 56.70 mg/dL NO RANGE EST. [facility] Work Phone: Basophil percentageon 2021 Bilirubin [Mass/Vol] 0.40 mg/dL 0.20-1.00 [facility] Work Phone: Comment on above: For patients on eltr ombopag therapy, use of Dimension Lennon TBIL is not recommended. Chloride [Moles/Vol] 102 mmol/L 98-107 [facility] Work Phone: [phone] Cholesterol [Mass/Vol] 189 mg/dL <200 [facility] Work Phone: Comment on above: <200 mg/dL Desirable 200-240 mg/dL Borderline >240 mg/dL High Risk Glucose [Mass/Vol] 285 mg/dL 74-106 [facility] Work Phone: [phone] Comment on above: Glucose result great er than or equal to 200 mg/dLsuggests DIABETES MELLITUS per A.D.A. criteria. Potassium [Moles/Vol] 4.1 mmol/L 3.5-5.1 [facility] Work Phone: [phone] Protein [Mass/Vol] 8.1 g/dL 6.4-8.2 [facility] Work Phone: [phone] Sodium [Moles/Vol] 133 mmol/L 136-145 [facility] Work Phone: [phone] Triglyceride [Mass/Vol] 526 mg/dL <199 [facility] Work Phone: [phone] Comment on above: The drugs N-Acetylcy steine [...] 06-01-2021 ALP [Catalytic activity/Vol] 96 U/L 45-117 [facility] Work Phone: [phone] ALT [Catalytic activity/Vol] 31 U/L 16-61 [facility] Work Phone: [phone] CO2 [Moles/Vol] 24.0 mmol/L 21.0-32.0 [facility] Work Phone: [phone] Globulin (S) [Mass/Vol] 4.6 g/dL 2.2-4.2 [facility] Work Phone: [phone] Urea nitrogen/Creatinine [Mass ratio] 22.3 mg/mg 10-20 [facility] Work Phone: [phone] Laboratory - Hematology and Cell countson 06-01-2021 HbA1c (Bld) [Mass fraction] 9.3 % [facility] Work Phone: No Panel Informationon 06-01 Estimated GFR (MDRD) Amer 73 mL/min >60 [facility] Work Phone: Comment on above: GFR Calc Estimated GFR (MDRD) Non-Af Amer 60 mL/min >60 [facility] Work Phone: Comment on above: Non- GFR Calc Serum or plasma albumin grazyna urement (mass/volume)on 06-01-2021 Albumin [Mass/Vol] 3.5 g/dL 3.2-5.0 [facility] Work Phone: Serum or plasma albumin/glob ulin mass ratioon 06-01-2021 Albumin/Globulin [Mass ratio] 0.8 {ratio} 0.9-2.4 [facility] Work Phone: Serum or plasma calcium grazyna urement (mass/volume)on 06-01-2021 Calcium [Mass/Vol] 9.1 mg/dL 8.5-10.1 [facility] Work Phone: Serum or plasma cholesterol in HDL measurement (mass/volume)on 06-01-2021 Cholesterol in HDL [Mass/Vol] 33 mg/dL >40 [facility] Work Phone: Comment on above: The drugs N-Acetylcy steine and Metamizole may falsely depress this assay. Reference Range HDL <40 mg/dL Low HDL Cholesterol HDL >or= 60 mg/dL High HDL Cholesterol Serum or plasma cholesterol in VLDL measurement (mass/volume)on 06-01-2021 Cholesterol in VLDL [Mass/Vol] TNP [facility] Work Phone: Comment on above: Test not [...] measurement (mass/volume)on 06-01-2021 Cholesterol in LDL [Mass/Vol] TNP [facility] Work Phone: Comment on above: Test not performed Serum or plasma urea nitroge n measurement (mass/volume)on 06-01-2021 Urea nitrogen [Mass/Vol] 29 mg/dL 7-18 [facility] Work Phone: Thin prep Papanicolaou smear with manual screeningon 06-01-2021 Thin prep Papanicolaou smear with manual screening 24 U/L 15-37 [facility] Work Phone: Thin prep Papanicolaou smear with manual screening 7 5-15 [facility] Work Phone: Absolute lymphocyte counton 05-30-2021 Lymphocytes Auto (Unsp spec) [#/Vol] 1.58 10*3/uL 0.83-4.51 [facility] Work Phone: [phone] Basophil percentageon 2021 Basophils/100 WBC (Bld) 0.7 % 0-1 [facility] Work Phone: Eosinophils/100 WBC (Bld) 2.4 % 0-5 [facility] Work Phone: Neutrophils (Bld) [#/Vol] 4.4 10*3/uL 2.0-7.7 [facility] Work Phone: Neutrophils/100 WBC (Bld) 64.8 % 47-70 [facility] Work Phone: WBC (Bld) [#/Vol] 6.7 10*3/uL 4.4-11.0 [facility] Work Phone: Blood erythrocytes count (nu mber/volume)on 05-30-2021 RBC (Bld) [#/Vol] 4.54 10*6/uL 4.6-6.2 [facility] Work Phone: Blood hemoglobin measurement (mass/volume)on 05-30-2021 Hemoglobin (Bld) [Mass/Vol] 11.9 g/dL 13.0-16.5 [facility] Work Phone: Blood lymphocytes/100 leukoc yteson 05-30-2021 Lymphocytes/100 WBC (Bld) 23.4 % 19-41 [facility] Work Phone: Blood monocytes/100 leukocyt eson 05-30-2021 Monocytes/100 WBC (Bld) 8.6 % 0-10 [facility] Work Phone: [phone] Blood platelet mean volumeon 05-30-2021 Platelet mean volume (Bld) [Entitic vol] 10.7 fL 6.2-12.0 [facility] Work Phone: Determination of erythrocyte mean corpuscular volume (MCV)on 05-30-2021 MCV (RBC) [Entitic vol] 81.3 fL 80-94 [facility] Work Phone: [phone] Hematocrit Auto (Bld) [Volum e fraction]on 05-30-2021 Hematocrit (Bld) [Volume fraction] 36.9 % 40-54 [facility] Work Phone: Laboratory - Hematology and Cell countson 05-30-2021 Erythrocyte distribution width (RBC) [Entitic vol] 46.5 fL 35.1-43.9 [facility] Work Phone: [phone] Erythrocyte distribution width (RBC) [Ratio] 15.6 % 11.6-14.6 [facility] Work Phone: [phone] Immature granulocytes/100 WBC (Bld) 0.100 % 0.0-0.9 [facility] Work Phone: [phone] Comment on above: IG% - Immature Granu locytes (promyelocytes, myelocytes and metamyelocytes) > 1% indicates that a LEFT SHIFT is Present. MCH (RBC) [Entitic mass] 26.2 pg 27.0-32.0 [facility] Work Phone: [phone] Nucleated RBC/100 WBC (Bld) [Ratio] 0 % 0-5 [facility] Work Phone: [phone] MCHC Auto (RBC) [Mass/Vol]on 03-01-2022 MCHC (RBC) [Mass/Vol] 32.2 g/dL 32-36 [facility] Work Phone: No Panel Informationon 05-30 Thyroid Stimulating Hormone (TSH) 1.24 uIU/mL 0.358-3.74 [facility] Work Phone: Platelets bldon 05-30-2021 Platelets (Bld) [#/Vol] 201 10*3/uL 150-450 [facility] Work Phone: Final Surgical Pathology Rep shruthi 08-11-2018 Final Surgical Pathology Report . Pathology Reports Accession: Collected Date/Time: Received Date/Time: Pathologist: [id number] 08/07/2018 14:48 EDT 08/08/2018 14:48 EDT URBAN [...] cm. TS -1 Dictated by Talita GRIFFITHS ([facility]) MICROSCOPIC DESCRIPTION: A-B Slides reviewed. Electronically Signed by Pathology Report verified by [facility] Electronically signed by URBAN BILLINGS Sign out Date: 08/11/2018 15:23 Performing Lab: [facility], [address] [place] [address] ([place]) Comment on above: Performed By: #### S PFR #### [place] [id number] Otheron 12-28-2010 CONVERTED CLINICAL HISTORY OPERATIVE PROCEDURE: V arthroscopy, partial medial meniscectomy rt knee CLINICAL INFORMATION: Partial medial meniscal tear rt knee [facility] CONVERTED ELECTRONIC SIGNATURE OCHOA SPENCER M.D., PATHOLOGIST (Electronic signature on file) Final Signed Out: 12/28/2010 13:12 [facility] CONVERTED FINAL DIAGNOSIS FINAL DIAGNOSIS: RIGHT KNEE, INTRAARTICULAR SHAVINGS - FIBROCARTILAGE WITH DEGENERATIVE CHANGES. SPECIMEN: SHAVINGS, KNEE [facility] CONVERTED GROSS DESCRIPTION GROSS DESCRIPTION: Intra-articular shavings rt knee Container labeled shavings right knee. Received in a cloth sock are portions of yellow-white fibrocartilaginous tissue measuring 2 x 2 x 1 cm in aggregate. A retail customer service representative sample is submitted in a single cassette. SMS/lrs MICROSCOPIC DESCRIPTION: Slides reviewed. EDS/gpl [facility] CONVERTED ORDERING PROVIDER Ordering Provider: KARLOS AQUINO [facility] Vital Signs Date Time Vital Sign Value Performing Clinician Facility 12-10-2024 14:53-0400 Diastolic blood pressure 53 mm[Hg] Dr. Radha Khan MD Work Phone: [phone] [place] [address] 12-10-2024 14:53-0400 Heart rate 77 /min Dr. Radha Khan MD Work Phone: [phone] [address] 12-10-2024 14:53-0400 Respiratory rate 16 /min Dr. Radha Khan MD Work Phone: [facility] 12-10-2024 14:53-0400 SaO2% (BldA) [Mass fraction] 99 % Dr. Radha Khan MD Work Phone: [facility] 12-10-2024 14:53-0400 Systolic blood pressure 113 mm[Hg] Dr. Radha Khan MD Work Phone: [facility] 12-10-2024 13:27-0400 Body height 175.[address] Radha Khan MD Work Phone: [facility] 12-10-2024 13:27-0400 Body mass index (BMI) [Ratio] 45.4 kg/m2 Dr. Radha Khan MD Work Phone: [facility] 12-10-2024 13:27-0400 Body temperature 96 [degF] Dr. Radha Khan MD Work Phone: [facility] 12-10-2024 13:27-0400 Body weight 139.[address] Radha Khan MD Work Phone: [phone])213-088274 [address] 12-10-2024 13:27-0400 Inhaled oxygen flow rate 4 L/min Dr. Radha Khan MD Work Phone: 8(536)590-379714 [place] [address] 11-28-2024 13:55-0400 Inhaled oxygen flow rate 8 L/min Dr. Radha Khan MD Work Phone: 8(967)450-925114 [place] [address] 11-28-2024 13:55-0400 SaO2% (BldA) [Mass fraction] 93 % Dr. Radha Khan MD Work Phone: 8(200)995-810114 [place] [address] 11-28-2024 13:19-0400 Body temperature 97.6 [degF] Dr. Radha Khan MD Work Phone: 3([phone])272-249114 [place] [address] 11-28-2024 13:19-0400 Diastolic blood pressure 76 mm[Hg] Dr. Radha Khan MD Work Phone: 5(748)644-451814 [place] [address] 11-28-2024 13:19-0400 Heart rate 97 /min Dr. Radha Khan MD Work Phone: 6(974)517-205714 [place] [address] 11-28-2024 13:19-0400 Respiratory rate 18 /min Dr. Radha Khan MD Work Phone: 6(334)435-638914 [place] [address] 11-28-2024 13:19-0400 Systolic blood pressure 162 mm[Hg] Dr. Radha Khan MD Work Phone: 1(497)082-786814 [place] [address] 11-26-2024 14:09-0400 Body height 175.[address] Radha Khan MD Work Phone: 6(085)630-213114 [place] [address] 11-26-2024 14:09-0400 Body weight 147.[address] Radha Khan MD Work Phone: 0(337)895-193714 [place] [address] 11-26-2024 13:21-0400 Body mass index (BMI) [Ratio] 48.1 kg/m2 Dr. Radha Khan MD Work Phone: 2(898)860-296714 [place] [address] 11-26-2024 12:39-0400 Body temperature 99.4 [degF] Dr. Radha Khan MD Work Phone: [facility] 11-26-2024 12:39-0400 Diastolic blood pressure 60 mm[Hg] Dr. Radha Khan MD Work Phone: 3(264)034-257114 [place] [address] 11-26-2024 12:39-0400 Heart rate 85 /min Dr. Radha Khan MD Work Phone: 9(881)321-851914 [place] [address] 11-26-2024 12:39-0400 Respiratory rate 22 /min Dr. Radha Khan MD Work Phone: 7(153)347-536514 [place] [address] 11-26-2024 12:39-0400 SaO2% (BldA) [Mass fraction] 100 % Dr. Radha Khan MD Work Phone: 1(479)606-183514 [place] [address] 11-26-2024 12:39-0400 Systolic blood pressure 119 mm[Hg] Dr. Radha Khan MD Work Phone: 1(231)776-885014 [place] [address] 11-26-2024 11:54-0400 Inhaled oxygen flow rate 4 L/min Dr. Radha Khan MD Work Phone: 5(859)315-864314 [place] [address] 11-26-2024 09:16-0400 Body height 175.[address] Radha Khan MD Work Phone: 6(165)388-024414 [place] [address] 11-26-2024 09:16-0400 Body mass index (BMI) [Ratio] 47.2 kg/m2 Dr. Radha Khan MD Work Phone: 4(337)876-183614 [place] [address] 11-26-2024 09:16-0400 Body weight 145.[address] Radha Khan MD Work Phone: 0(700)815-281814 [place] [address] 11-25-2024 08:20-0400 Body mass index (BMI) [Ratio] 48.2 kg/m2 Dr. Radha Khan MD Work Phone: 8(345)400-528514 [place] [address] 11-25-2024 08:20-0400 Body temperature 97.4 [degF] Dr. Radha Khan MD Work Phone: 4(912)898-241214 [place] [address] 11-25-2024 08:20-0400 Body weight 148.[address] Radha Khan MD Work Phone: [facility] 11-25-2024 08:20-0400 Diastolic blood pressure 74 mm[Hg] Dr. Radha Khan MD Work Phone: [facility] 11-25-2024 08:20-0400 Heart rate 76 /min Dr. Radha Khan MD Work Phone: [facility] 11-25-2024 08:20-0400 Inhaled oxygen flow rate 4 L/min Dr. Radha Khan MD Work Phone: [facility] 11-25-2024 08:20-0400 Respiratory rate 20 /min Dr. Radha Khan MD Work Phone: [facility] 11-25-2024 08:20-0400 SaO2% (BldA) [Mass fraction] 99 % Dr. Radha Khan MD Work Phone: [facility] 11-25-2024 08:20-0400 Systolic blood pressure 112 mm[Hg] Dr. Radha Khan MD Work Phone: [facility] 11-13-2024 13:01-0400 Body mass index (BMI) [Ratio] 50.06 kg/m2 Rosalino Padron MD Work Phone: [facility] 11-13-2024 13:01-0400 Body temperature 97 [degF] Rosalino Padron MD Work Phone: [facility] 11-13-2024 13:01-0400 Body weight 153.77 kg Rosalino Padron MD Work Phone: [facility] 11-13-2024 13:01-0400 Diastolic blood pressure 69 mm[Hg] Rosalino Padron MD Work Phone: [facility] 11-13-2024 13:01-0400 Heart rate 74 /min Rosalino Padron MD Work Phone: [facility] 11-13-2024 13:01-0400 SaO2% (BldA) [Mass fraction] 98 % Rosalino Padron MD Work Phone: [facility] Comment on above: pt on 4L O2 11-13-2024 13:01-0400 Systolic blood pressure 114 mm[Hg] Rosalino Padron MD Work Phone: [facility] 11-12-2024 10:51-0400 Body height 175.[address] Radha Khan MD Work Phone: [facility] 11-12-2024 10:51-0400 Body mass index (BMI) [Ratio] 49.8 kg/m2 Dr. Radha Khan MD Work Phone: 4(046)075-225474 [address] 11-12-2024 10:51-0400 Body weight 153.[address] Radha Khan MD Work Phone: 3(163)350-909574 [address] 11-12-2024 10:51-0400 Diastolic blood pressure 70 mm[Hg] Dr. Radha Khan MD Work Phone: [facility] 11-12-2024 10:51-0400 Heart rate 84 /min Dr. Radha Khan MD Work Phone: 0(074)327-244945 [place] [address] 11-12-2024 10:51-0400 Inhaled oxygen flow rate 4 L/min Dr. Radha Khan MD Work Phone: 2([phone])346-678745 [place] [address] 11-12-2024 10:51-0400 Respiratory rate 15 /min Dr. Radha Khan MD Work Phone: [facility] 11-12-2024 10:51-0400 SaO2% (BldA) [Mass fraction] 93 % Dr. Radha Khan MD Work Phone: [facility] 11-12-2024 10:51-0400 Systolic blood pressure 116 mm[Hg] Dr. Radha Khan MD Work Phone: [facility] 11-03-2024 13:42-0400 Body height 175.[address] Radha Khan MD Work Phone: [facility] 11-03-2024 13:42-0400 Body mass index (BMI) [Ratio] 49.9 kg/m2 Dr. Radha Khan MD Work Phone: [facility] 11-03-2024 13:42-0400 Body temperature 97.9 [degF] Dr. Radha Khan MD Work Phone: 9(727)710-790645 [place] [address] 11-03-2024 13:42-0400 Body weight 153.[address] Radha Khan MD Work Phone: [facility] 11-03-2024 13:42-0400 Diastolic blood pressure 60 mm[Hg] Dr. Radha Khan MD Work Phone: 1(830)557-381574 [address] 11-03-2024 13:42-0400 Heart rate 85 /min Dr. Radha Khan MD Work Phone: 9(387)387-006845 [place] [address] 11-03-2024 13:42-0400 Inhaled oxygen flow rate 4 L/min Dr. Radha Khan MD Work Phone: 6(227)018-121145 [place] [address] 11-03-2024 13:42-0400 Respiratory rate 18 /min Dr. Radha Khan MD Work Phone: 7(770)202-831974 [address] 11-03-2024 13:42-0400 SaO2% (BldA) [Mass fraction] 98 % Dr. Radha Khan MD Work Phone: 6(506)414-963545 [place] [address] 11-03-2024 13:42-0400 Systolic blood pressure 86 mm[Hg] Dr. Radha Khan MD Work Phone: 4(095)281-770545 [place] [address] 10-27-2024 10:19-0400 Body height 175.[address] Radha Khan MD Work Phone: 1(624)404-392145 [place] [address] 10-27-2024 10:19-0400 Body mass index (BMI) [Ratio] 48.9 kg/m2 Dr. Radha Khan MD Work Phone: 9(950)918-754045 [place] [address] 10-27-2024 10:19-0400 Body weight 150.[address] Radha Khan MD Work Phone: [facility] 10-27-2024 10:19-0400 Diastolic blood pressure 79 mm[Hg] Dr. Radha Khan MD Work Phone: [facility] 10-27-2024 10:19-0400 Heart rate 65 /min Dr. Radha Khan MD Work Phone: [facility] 10-27-2024 10:19-0400 Respiratory rate 20 /min Dr. Radha Khan MD Work Phone: [facility] 10-27-2024 10:19-0400 Systolic blood pressure 136 mm[Hg] Dr. Radha hKan MD Work Phone: 6(647)548-362674 [address] 10-12-2024 10:52-0400 Body height 175.[address] Radha Khan MD Work Phone: 3(057)998-848974 [address] 10-12-2024 10:52-0400 Body mass index (BMI) [Ratio] 47.4 kg/m2 Dr. Radha Khan MD Work Phone: [facility] 10-12-2024 10:52-0400 Body temperature 98.2 [degF] Dr. Radha Khan MD Work Phone: [facility] 10-12-2024 10:52-0400 Body weight 145.[address] Radha Khan MD Work Phone: [facility] 10-12-2024 10:52-0400 Diastolic blood pressure 81 mm[Hg] Dr. Radha Khan MD Work Phone: [facility] 10-12-2024 10:52-0400 Heart rate 81 /min Dr. Radha Khan MD Work Phone: [facility] 10-12-2024 10:52-0400 Inhaled oxygen flow rate 4 L/min Dr. Radha Khan MD Work Phone: [facility] 10-12-2024 10:52-0400 Respiratory rate 17 /min Dr. Radha Khan MD Work Phone: [facility] 10-12-2024 10:52-0400 SaO2% (BldA) [Mass fraction] 96 % Dr. Radha Khan MD Work Phone: [facility] 10-12-2024 10:52-0400 Systolic blood pressure 150 mm[Hg] Dr. Radha Khan MD Work Phone: 0(667)680-561145 [place] [address] 09-28-2024 15:00-0400 Body mass index (BMI) [Ratio] 47.7 kg/m2 Dr. Radha Khan MD Work Phone: 8(481)676-261414 [place] [address] 09-28-2024 14:46-0400 Body temperature 97.5 [degF] Dr. Radha Khan MD Work Phone: 7(635)001-146214 [place] [address] 09-28-2024 14:46-0400 Diastolic blood pressure 76 mm[Hg] Dr. Radha Khan MD Work Phone: 5(022)217-890774 [address] 09-28-2024 14:46-0400 Heart rate 77 /min Dr. Radha Khan MD Work Phone: 9(411)689-774774 [address] 09-28-2024 14:46-0400 Inhaled oxygen flow rate 4 L/min Dr. Radha Khan MD Work Phone: 2(634)120-256345 [place] [address] 09-28-2024 14:46-0400 Respiratory rate 18 /min Dr. Radha Khan MD Work Phone: 9(035)151-167845 [place] [address] 09-28-2024 14:46-0400 SaO2% (BldA) [Mass fraction] 97 % Dr. Radha Khan MD Work Phone: 4(568)805-036445 [place] [address] 09-28-2024 14:46-0400 Systolic blood pressure 141 mm[Hg] Dr. Radha Khan MD Work Phone: 3(511)989-920214 [place] [address] 09-28-2024 13:26-0400 Body temperature 97.9 [degF] Dr. Radha Khan MD Work Phone: 4(037)583-358745 [place] [address] 09-28-2024 13:26-0400 Diastolic blood pressure 65 mm[Hg] Dr. Radha Khan MD Work Phone: 2(139)999-398345 [place] [address] 09-28-2024 13:26-0400 Heart rate 77 /min Dr. Radha Khan MD Work Phone: 6(817)801-098545 [place] [address] 09-28-2024 13:26-0400 Respiratory rate 16 /min Dr. Radha Khan MD Work Phone: 3(238)945-734245 [place] [address] 09-28-2024 13:26-0400 SaO2% (BldA) [Mass fraction] 98 % Dr. Radha Khan MD Work Phone: 8(442)702-807714 [place] [address] 09-28-2024 13:26-0400 Systolic blood pressure 139 mm[Hg] Dr. Radha Khan MD Work Phone: 3(341)314-433414 [place] [address] 09-27-2024 23:37-0400 Body mass index (BMI) [Ratio] 47.7 kg/m2 Dr. Radha Khan MD Work Phone: 0(581)828-437114 [place] [address] 09-27-2024 10:10-0400 Body height 175.[address] Radha Khan MD Work Phone: 6(019)186-093814 [place] [address] 09-27-2024 10:10-0400 Body weight 146.[address] Radha Khan MD Work Phone: 2(428)887-309714 [place] [address] 09-26-2024 18:10-0400 Body temperature 97.8 [degF] Dr. Radha Khan MD Work Phone: 2(249)545-043145 [place] [address] 09-26-2024 18:10-0400 Diastolic blood pressure 64 mm[Hg] Dr. Radha Khan MD Work Phone: 4(232)298-402845 [place] [address] 09-26-2024 18:10-0400 Heart rate 74 /min Dr. Radha Khan MD Work Phone: 2(252)344-058545 [place] [address] 09-26-2024 18:10-0400 Respiratory rate 26 /min Dr. Radha Khan MD Work Phone: 3(091)050-685345 [place] [address] 09-26-2024 18:10-0400 SaO2% (BldA) [Mass fraction] 94 % Dr. Radha Khan MD Work Phone: [facility] 09-26-2024 18:10-0400 Systolic blood pressure 133 mm[Hg] Dr. Radha Khan MD Work Phone: [facility] 09-26-2024 17:19-0400 Inhaled oxygen flow rate 4 L/min Dr. Radha Khan MD Work Phone: [facility] 09-26-2024 15:29-0400 Body height 175.[address] Radha Khan MD Work Phone: [facility] 09-24-2024 09:03-0400 Diastolic blood pressure 69 mm[Hg] Dick Nguyen MD Work Phone: [facility] 09-24-2024 09:03-0400 Systolic blood pressure 100 mm[Hg] Dick Nguyen MD Work Phone: [facility] 09-24-2024 08:55-0400 Body temperature 96.8 [degF] Dick Nguyen MD Work Phone: 9(519)393-958862 [address] 09-24-2024 08:55-0400 Heart rate 57 /min Dick Nguyen MD Work Phone: [facility] 09-24-2024 08:55-0400 Respiratory rate 29 /min Dick Nguyen MD Work Phone: [facility] 09-24-2024 08:55-0400 SaO2% (BldA) [Mass fraction] 96 % Dick Nguyen MD Work Phone: 2(780)389-106432 [place] [address] 09-24-2024 06:54-0400 Body height 175.3 cm Dick Nguyen MD Work Phone: [facility] 09-24-2024 06:54-0400 Body mass index (BMI) [Ratio] 47.85 kg/m2 Dick Nguyen MD Work Phone: [facility] 09-24-2024 06:54-0400 Body weight 146.97 kg Dick Nguyen MD Work Phone: [facility] 09-16-2024 10:01-0400 Body height 175.[address] Radha Khan MD Work Phone: [facility] 09-16-2024 10:01-0400 Body mass index (BMI) [Ratio] 48.1 kg/m2 Dr. Radha Khan MD Work Phone: [facility] 09-16-2024 10:01-0400 Body weight 147.[address] Radha Khan MD Work Phone: [facility] 09-16-2024 10:01-0400 Diastolic blood pressure 70 mm[Hg] Dr. Radha Khan MD Work Phone: [facility] 09-16-2024 10:01-0400 Heart rate 72 /min Dr. Radha Khan MD Work Phone: [facility] 09-16-2024 10:01-0400 SaO2% (BldA) [Mass fraction] 96 % Dr. Radha Khan MD Work Phone: [facility] 09-16-2024 10:01-0400 Systolic blood pressure 109 mm[Hg] Dr. Radha Khan MD Work Phone: [facility] 09-15-2024 12:59-0400 Body height 175.[address] Radha Khan MD Work Phone: [facility] 09-15-2024 12:59-0400 Body mass index (BMI) [Ratio] 47.8 kg/m2 Dr. Radha Khan MD Work Phone: [facility] 09-15-2024 12:59-0400 Body temperature 98.2 [degF] Dr. Radha Khan MD Work Phone: [facility] 09-15-2024 12:59-0400 Body weight 146.[address] Radha Khan MD Work Phone: [facility] 09-15-2024 12:59-0400 Diastolic blood pressure 59 mm[Hg] Dr. Radha Khan MD Work Phone: [facility] 09-15-2024 12:59-0400 Heart rate 82 /min Dr. Radha Khan MD Work Phone: [facility] 09-15-2024 12:59-0400 Inhaled oxygen flow rate 4 L/min Dr. Radha Khan MD Work Phone: [facility] 09-15-2024 12:59-0400 Respiratory rate 17 /min Dr. Radha Khan MD Work Phone: [facility] 09-15-2024 12:59-0400 SaO2% (BldA) [Mass fraction] 94 % Dr. Radha Khan MD Work Phone: [facility] 09-15-2024 12:59-0400 Systolic blood pressure 104 mm[Hg] Dr. Radha Khan MD Work Phone: [facility] 08-28-2024 11:58-0400 Body temperature 97.9 [degF] Rosalino Padron MD Work Phone: [facility] 08-28-2024 11:58-0400 Body weight 143.79 kg Rosalino Padron MD Work Phone: [facility] 08-28-2024 11:58-0400 Diastolic blood pressure 70 mm[Hg] Rosalino Padron MD Work Phone: [facility] 08-28-2024 11:58-0400 Heart rate 76 /min Rosalino Padron MD Work Phone: [facility] 08-28-2024 11:58-0400 SaO2% (BldA) [Mass fraction] 95 % Rosalino Padron MD Work Phone: [facility] Comment on above: 4L O2 08-28-2024 11:58-0400 Systolic blood pressure 125 mm[Hg] Rosalino Padron MD Work Phone: [facility] 08-17-2024 11:25-0400 Body height 175.[address] Radha Khan MD Work Phone: 5(656)664-504545 [place] [address] 08-17-2024 11:25-0400 Body mass index (BMI) [Ratio] 46 kg/m2 Dr. Radha Khan MD Work Phone: 0(996)367-679274 [address] 08-17-2024 11:25-0400 Body temperature 98.2 [degF] Dr. Radha Khan MD Work Phone: 4(263)519-935314 [place] [address] 08-17-2024 11:25-0400 Body weight 141.[address] Radha Khan MD Work Phone: 1(742)167-300274 [address] 08-17-2024 11:25-0400 Diastolic blood pressure 70 mm[Hg] Dr. Radha Khan MD Work Phone: 9(325)097-426045 [place] [address] 08-17-2024 11:25-0400 Heart rate 74 /min Dr. Radha Khan MD Work Phone: 4(957)349-208874 [address] 08-17-2024 11:25-0400 Inhaled oxygen flow rate 4 L/min Dr. Radha Khan MD Work Phone: 9(866)523-569945 [place] [address] 08-17-2024 11:25-0400 Respiratory rate 16 /min Dr. Radha Khan MD Work Phone: 1(686)461-610574 [address] 08-17-2024 11:25-0400 SaO2% (BldA) [Mass fraction] 96 % Dr. Radha Khan MD Work Phone: 8(669)027-754945 [place] [address] 08-17-2024 11:25-0400 Systolic blood pressure 119 mm[Hg] Dr. Radha Khan MD Work Phone: 1(539)736-795645 [place] [address] 08-07-2024 14:09-0400 Body temperature 98.01 [degF] Rosalino Padron MD Work Phone: [facility] 08-07-2024 14:09-0400 Body weight 141.98 kg Rosalino Padron MD Work Phone: [facility] 08-07-2024 14:09-0400 Diastolic blood pressure 58 mm[Hg] Rosalino Padron MD Work Phone: [facility] 08-07-2024 14:09-0400 Heart rate 81 /min Rosalino Padron MD Work Phone: [facility] 08-07-2024 14:09-0400 SaO2% (BldA) [Mass fraction] 98 % Rosalino Padron MD Work Phone: [facility] 08-07-2024 14:09-0400 Systolic blood pressure 92 mm[Hg] Rosalino Padron MD Work Phone: [facility] 08-06-2024 14:41-0400 Body temperature 98.2 [degF] Dr. Radha Khan MD Work Phone: [facility] 08-06-2024 14:41-0400 Body weight 142.[address] Radha Khan MD Work Phone: [facility] 08-06-2024 14:41-0400 Diastolic blood pressure 69 mm[Hg] Dr. Radha Khan MD Work Phone: [facility] 08-06-2024 14:41-0400 Heart rate 80 /min Dr. Radha Khan MD Work Phone: [facility] 08-06-2024 14:41-0400 Inhaled oxygen flow rate 8 L/min Dr. Radha Khan MD Work Phone: [facility] 08-06-2024 14:41-0400 Respiratory rate 17 /min Dr. Radha Khan MD Work Phone: [facility] 08-06-2024 14:41-0400 SaO2% (BldA) [Mass fraction] 94 % Dr. Radha Khan MD Work Phone: [facility] 08-06-2024 14:41-0400 Systolic blood pressure 99 mm[Hg] Dr. Radha Khan MD Work Phone: [facility] 07-06-2024 13:44-0400 Body temperature 98.2 [degF] Dr. Radha Khan MD Work Phone: [facility] 07-06-2024 13:44-0400 Body weight 139.[address] Radha Khan MD Work Phone: [facility] 07-06-2024 13:44-0400 Diastolic blood pressure 68 mm[Hg] Dr. Radha Khan MD Work Phone: [facility] 07-06-2024 13:44-0400 Heart rate 91 /min Dr. Radha Khan MD Work Phone: [facility] 07-06-2024 13:44-0400 Inhaled oxygen flow rate 4 L/min Dr. Radha Khan MD Work Phone: [facility] 07-06-2024 13:44-0400 Respiratory rate 17 /min Dr. Radha Khan MD Work Phone: [facility] 07-06-2024 13:44-0400 SaO2% (BldA) [Mass fraction] 97 % Dr. Radha Khan MD Work Phone: [facility] 07-06-2024 13:44-0400 Systolic blood pressure 110 mm[Hg] Dr. Radha Khan MD Work Phone: [facility] 06-26-2024 11:10-0400 Body temperature 97.59 [degF] Rosalino Padron MD Work Phone: [facility] 06-26-2024 11:10-0400 Body weight 141.07 kg Rosalino Padron MD Work Phone: [facility] 06-26-2024 11:10-0400 Diastolic blood pressure 78 mm[Hg] Rosalino Padron MD Work Phone: [facility] 06-26-2024 11:10-0400 Heart rate 76 /min Rosalino Padron MD Work Phone: [facility] 06-26-2024 11:10-0400 SaO2% (BldA) [Mass fraction] 98 % Rosalino Padron MD Work Phone: [facility] Comment on above: pt on 4L O2 06-26-2024 11:10-0400 Systolic blood pressure 157 mm[Hg] Rosalino Padron MD Work Phone: [facility] 06-10-2024 08:19-0400 Body mass index (BMI) [Ratio] 45.3 kg/m2 Dr. Radha Khan MD Work Phone: [facility] 06-10-2024 08:19-0400 Body temperature 97.2 [degF] Dr. Radha Khan MD Work Phone: [facility] 06-10-2024 08:19-0400 Body weight 139.[address] Radha Khan MD Work Phone: [facility] 06-10-2024 08:19-0400 Diastolic blood pressure 76 mm[Hg] Dr. Radha Khan MD Work Phone: [facility] 06-10-2024 08:19-0400 Heart rate 59 /min Dr. Radha Khan MD Work Phone: [facility] 06-10-2024 08:19-0400 Inhaled oxygen flow rate 4 L/min Dr. Radha Khan MD Work Phone: [facility] 06-10-2024 08:19-0400 Respiratory rate 20 /min Dr. Radha Khan MD Work Phone: [facility] 06-10-2024 08:19-0400 SaO2% (BldA) [Mass fraction] 99 % Dr. Radha Khan MD Work Phone: [facility] 06-10-2024 08:19-0400 Systolic blood pressure 115 mm[Hg] Dr. Radha Khan MD Work Phone: [facility] 06-04-2024 13:50-0500 Body height 175.[address] aRdha Khan MD Work Phone: [facility] 06-04-2024 13:50-0500 Body mass index (BMI) [Ratio] 45.1 kg/m2 Dr. Radha Khan MD Work Phone: 5(919)502-961545 [place] [address] 06-04-2024 13:50-0500 Body temperature 97.8 [degF] Dr. Radha Khan MD Work Phone: 2(427)627-872074 [address] 06-04-2024 13:50-0500 Body weight 138.[address] Radha Khan MD Work Phone: 7(533)593-123045 [place] [address] 06-04-2024 13:50-0500 Diastolic blood pressure 61 mm[Hg] Dr. Radha Khan MD Work Phone: 8(312)290-522545 [place] [address] 06-04-2024 13:50-0500 Heart rate 59 /min Dr. Radha Khan MD Work Phone: 9(870)936-679045 [place] [address] 06-04-2024 13:50-0500 Inhaled oxygen flow rate 4 L/min Dr. Radha Khan MD Work Phone: [facility] 06-04-2024 13:50-0500 Respiratory rate 17 /min Dr. Radha Khan MD Work Phone: [facility] 06-04-2024 13:50-0500 SaO2% (BldA) [Mass fraction] 92 % Dr. Radha Khan MD Work Phone: [facility] 06-04-2024 13:50-0500 Systolic blood pressure 141 mm[Hg] Dr. Radha Khan MD Work Phone: [facility] 05-21-2024 10:44-0500 Body mass index (BMI) [Ratio] 43.7 kg/m2 Dr. Radha Khan MD Work Phone: [facility] 05-21-2024 10:44-0500 Body weight 134.[address] Radha Khna MD Work Phone: [facility] 05-21-2024 10:44-0500 Diastolic blood pressure 69 mm[Hg] Dr. Radha Khan MD Work Phone: [facility] 05-21-2024 10:44-0500 Heart rate 75 /min Dr. Radha Khan MD Work Phone: [facility] 05-21-2024 10:44-0500 Inhaled oxygen flow rate 4 L/min Dr. Radha Khan MD Work Phone: [facility] 05-21-2024 10:44-0500 Respiratory rate 18 /min Dr. Radha Khan MD Work Phone: [facility] 05-21-2024 10:44-0500 SaO2% (BldA) [Mass fraction] 100 % Dr. Radha Khan MD Work Phone: [facility] 05-21-2024 10:44-0500 Systolic blood pressure 105 mm[Hg] Dr. Radha Khan MD Work Phone: [facility] 05-06-2024 08:35-0500 Body temperature 96.69 [degF] Mey Bosz CUT OFF MACHINE OPERATOR - BUS OPERATOR Work Phone: [facility] 05-06-2024 08:35-0500 Diastolic blood pressure 63 mm[Hg] Emy Bosz CUT OFF MACHINE OPERATOR - BUS OPERATOR Work Phone: [facility] 05-06-2024 08:35-0500 Heart rate 72 /min Mey Bosdhiraj CUT OFF MACHINE OPERATOR - BUS OPERATOR Work Phone: [facility] 05-06-2024 08:35-0500 Respiratory rate 20 /min Mey Bosz CUT OFF MACHINE OPERATOR - BUS OPERATOR Work Phone: [facility] 05-06-2024 08:35-0500 SaO2% (BldA) [Mass fraction] 95 % Mey Bosz CUT OFF MACHINE OPERATOR - BUS OPERATOR Work Phone: [facility] 05-06-2024 08:35-0500 Systolic blood pressure 112 mm[Hg] Mey Loya CUT OFF MACHINE OPERATOR - BUS OPERATOR Work Phone: [facility] 05-05-2024 13:14-0500 Body temperature 98 [degF] Dr. Radha Khan MD Work Phone: [facility] 05-05-2024 13:14-0500 Diastolic blood pressure 63 mm[Hg] Dr. Radha Khan MD Work Phone: [facility] 05-05-2024 13:14-0500 Heart rate 66 /min Dr. Radha Khan MD Work Phone: [facility] 05-05-2024 13:14-0500 Respiratory rate 18 /min Dr. Radha Khan MD Work Phone: [facility] 05-05-2024 13:14-0500 SaO2% (BldA) [Mass fraction] 100 % Dr. Radha Khan MD Work Phone: [facility] 05-05-2024 13:14-0500 Systolic blood pressure 101 mm[Hg] Dr. Radha Khan MD Work Phone: [facility] 05-01-2024 12:31-0500 Body mass index (BMI) [Ratio] 44.4 kg/m2 Dr. Radha Khan MD Work Phone: [facility] 05-01-2024 12:31-0500 Body temperature 98.3 [degF] Dr. Radha Khan MD Work Phone: [facility] 05-01-2024 12:31-0500 Body weight 136.[address] Radha Khan MD Work Phone: [facility] 05-01-2024 12:31-0500 Diastolic blood pressure 60 mm[Hg] Dr. Radha Khan MD Work Phone: [facility] 05-01-2024 12:31-0500 Heart rate 70 /min Dr. Radha Khan MD Work Phone: [facility] 05-01-2024 12:31-0500 Inhaled oxygen flow rate 4 L/min Dr. Radha Khan MD Work Phone: [facility] 05-01-2024 12:31-0500 Respiratory rate 18 /min Dr. Radha Khan MD Work Phone: 8(885)194-127345 [place] [address] 05-01-2024 12:31-0500 SaO2% (BldA) [Mass fraction] 100 % Dr. Radha Khan MD Work Phone: 3(934)185-566945 [place] [address] 05-01-2024 12:31-0500 Systolic blood pressure 97 mm[Hg] Dr. Radha Khan MD Work Phone: 1(791)527-701114 [place] [address] 04-30-2024 14:32-0500 Body temperature 97.4 [degF] Dr. Radha Khan MD Work Phone: 0(037)479-093414 [place] [address] 04-30-2024 14:32-0500 Body weight 138.[address] Radha Khan MD Work Phone: 9(250)404-860974 [address] 04-30-2024 14:32-0500 Diastolic blood pressure 58 mm[Hg] Dr. Radha Khan MD Work Phone: 4(867)501-830074 [address] 04-30-2024 14:32-0500 Heart rate 73 /min Dr. Radha Khan MD Work Phone: 9(218)758-335545 [place] [address] 04-30-2024 14:32-0500 Inhaled oxygen flow rate 4 L/min Dr. Radha Khan MD Work Phone: 9(491)098-030545 [place] [address] 04-30-2024 14:32-0500 Respiratory rate 18 /min Dr. Radha Khan MD Work Phone: 1(074)348-699045 [place] [address] 04-30-2024 14:32-0500 SaO2% (BldA) [Mass fraction] 94 % Dr. Radha Khan MD Work Phone: 0(872)414-232774 [address] 04-30-2024 14:32-0500 Systolic blood pressure 111 mm[Hg] Dr. Radha Khan MD Work Phone: 8(567)962-586545 [place] [address] 04-30-2024 13:26-0500 Body mass index (BMI) [Ratio] 44.7 kg/m2 Dr. Radha Khan MD Work Phone: 0(188)921-783014 [place] [address] 04-30-2024 13:26-0500 Body weight 137.[address] Radha Khan MD Work Phone: 3(440)231-816114 [place] [address] 04-30-2024 13:26-0500 Diastolic blood pressure 55 mm[Hg] Dr. Radha Khan MD Work Phone: 5(510)372-887914 [place] [address] 04-30-2024 13:26-0500 Heart rate 69 /min Dr. Radha Khan MD Work Phone: 8(412)936-674314 [place] [address] 04-30-2024 13:26-0500 Respiratory rate 18 /min Dr. Radha Khan MD Work Phone: 4(848)896-274914 [place] [address] 04-30-2024 13:26-0500 Systolic blood pressure 97 mm[Hg] Dr. Radha Khan MD Work Phone: 0(833)560-870414 [place] [address] 04-30-2024 11:30-0500 Body mass index (BMI) [Ratio] 44.7 kg/m2 Dr. Radha Khan MD Work Phone: 2(201)432-568214 [place] [address] 04-30-2024 11:30-0500 Body temperature 98.2 [degF] Dr. Radha Khan MD Work Phone: 2(034)206-452314 [place] [address] 04-30-2024 11:30-0500 Body weight 137.[address] Radha Khan MD Work Phone: 3(095)775-210614 [place] [address] 04-30-2024 11:30-0500 Diastolic blood pressure 74 mm[Hg] Dr. Radha Khan MD Work Phone: 2(101)090-535014 [place] [address] 04-30-2024 11:30-0500 Heart rate 80 /min Dr. Radha Khan MD Work Phone: 6(446)845-812914 [place] [address] 04-30-2024 11:30-0500 Inhaled oxygen flow rate 4 L/min Dr. Radha Khan MD Work Phone: [facility] 04-30-2024 11:30-0500 Respiratory rate 17 /min Dr. Radha Khan MD Work Phone: [facility] 04-30-2024 11:30-0500 SaO2% (BldA) [Mass fraction] 95 % Dr. Radha Khan MD Work Phone: [facility] 04-30-2024 11:30-0500 Systolic blood pressure 120 mm[Hg] Dr. Radha Khan MD Work Phone: [facility] 04-27-2024 14:43-0500 Body height 175.3 cm Suzy Jauregui MD Work Phone: [facility] 04-27-2024 14:43-0500 Body mass index (BMI) [Ratio] 46.07 kg/m2 Suzy Jauregui MD Work Phone: [facility] 04-27-2024 14:43-0500 Body weight 141.52 kg Suzy Jauregui MD Work Phone: [facility] 04-27-2024 14:43-0500 Diastolic blood pressure 60 mm[Hg] Suzy Jauregui MD Work Phone: [facility] 04-27-2024 14:43-0500 Heart rate 75 /min Suzy Jauregui MD Work Phone: [facility] 04-27-2024 14:43-0500 Respiratory rate 18 /min Suzy Jauregui MD Work Phone: [facility] 04-27-2024 14:43-0500 SaO2% (BldA) [Mass fraction] 95 % Suzy Jauregui MD Work Phone: [facility] 04-27-2024 14:43-0500 Systolic blood pressure 122 mm[Hg] Suzy Jauregui MD Work Phone: [facility] 04-25-2024 16:19-0500 Body mass index (BMI) [Ratio] 44.6 kg/m2 Dr. Radha Khan MD Work Phone: [facility] 04-25-2024 14:00-0500 Body temperature 98.5 [degF] Dr. Radha Khan MD Work Phone: 7(247)701-075314 [place] [address] 04-25-2024 14:00-0500 Diastolic blood pressure 54 mm[Hg] Dr. Radha Khan MD Work Phone: 8(195)702-047514 [place] [address] 04-25-2024 14:00-0500 Heart rate 93 /min Dr. Radha Khan MD Work Phone: 9(991)532-025014 [place] [address] 04-25-2024 14:00-0500 Inhaled oxygen flow rate 3.5 L/min Dr. Radha Khan MD Work Phone: 6(409)111-419014 [place] [address] 04-25-2024 14:00-0500 Respiratory rate 16 /min Dr. Radha Khan MD Work Phone: 9(038)907-450514 [place] [address] 04-25-2024 14:00-0500 SaO2% (BldA) [Mass fraction] 100 % Dr. Radha Khan MD Work Phone: 7(157)836-849214 [place] [address] 04-25-2024 14:00-0500 Systolic blood pressure 113 mm[Hg] Dr. Radha Khan MD Work Phone: 3(016)546-683314 [place] [address] 04-25-2024 09:20-0500 Body weight 137.[address] Radha Khan MD Work Phone: 2(926)971-995714 [place] [address] 04-22-2024 09:35-0500 Body mass index (BMI) [Ratio] 45.6 kg/m2 Dr. Radha Khan MD Work Phone: 7(213)808-720814 [place] [address] 04-22-2024 09:35-0500 Body temperature 97.3 [degF] Dr. Radha Khan MD Work Phone: 0(551)862-422214 [place] [address] 04-22-2024 09:35-0500 Body weight 140.[address] Radha Khan MD Work Phone: 0(817)994-105614 [place] [address] 04-22-2024 09:35-0500 Diastolic blood pressure 76 mm[Hg] Dr. Radha Khan MD Work Phone: [facility] 04-22-2024 09:35-0500 Heart rate 67 /min Dr. Radha Khan MD Work Phone: [facility] 04-22-2024 09:35-0500 Inhaled oxygen flow rate 4 L/min Dr. Radha Khan MD Work Phone: 3(792)659-019945 [place] [address] 04-22-2024 09:35-0500 Respiratory rate 20 /min Dr. Radha Khan MD Work Phone: 3(845)128-568045 [place] [address] 04-22-2024 09:35-0500 SaO2% (BldA) [Mass fraction] 99 % Dr. Radha Khan MD Work Phone: 2(417)465-797245 [place] [address] 04-22-2024 09:35-0500 Systolic blood pressure 143 mm[Hg] Dr. Radha Khan MD Work Phone: 3(910)174-964214 [place] [address] 04-16-2024 09:22-0500 Body mass index (BMI) [Ratio] 44.9 kg/m2 Dr. Radha Khan MD Work Phone: 8(331)424-452914 [place] [address] 04-16-2024 09:22-0500 Body weight 138.[address] Radha Khan MD Work Phone: 8(413)062-967574 [address] 04-16-2024 09:22-0500 Diastolic blood pressure 56 mm[Hg] Dr. Radha Khan MD Work Phone: 2(511)129-569145 [place] [address] 04-16-2024 09:22-0500 Heart rate 79 /min Dr. Radha Khan MD Work Phone: [facility] 04-16-2024 09:22-0500 Inhaled oxygen flow rate 4 L/min Dr. Radha Khan MD Work Phone: 0(251)417-752314 [place] [address] 04-16-2024 09:22-0500 SaO2% (BldA) [Mass fraction] 78 % Dr. Radha Khan MD Work Phone: 3(514)613-958945 [place] [address] 04-16-2024 09:22-0500 Systolic blood pressure 105 mm[Hg] Dr. Radha Khan MD Work Phone: [facility] 04-15-2024 16:08-0500 Inhaled oxygen flow rate 4 L/min Dr. Radha Khan MD Work Phone: [facility] 04-15-2024 14:26-0500 Body temperature 97.9 [degF] Dr. Radha Khan MD Work Phone: [facility] 04-15-2024 14:26-0500 Diastolic blood pressure 66 mm[Hg] Dr. Radha Khan MD Work Phone: [phone] [place] [address] 04-15-2024 14:26-0500 Heart rate 79 /min Dr. Radha Khan MD Work Phone: [phone] [place] [address] 04-15-2024 14:26-0500 Respiratory rate 16 /min Dr. Radha Khan MD Work Phone: [facility] 04-15-2024 14:26-0500 SaO2% (BldA) [Mass fraction] 94 % Dr. Radha Khan MD Work Phone: [facility] 04-15-2024 14:26-0500 Systolic blood pressure 102 mm[Hg] Dr. Radha Khan MD Work Phone: [facility] 04-15-2024 03:24-0500 Body mass index (BMI) [Ratio] 44.5 kg/m2 Dr. Radha Khan MD Work Phone: [facility] 04-15-2024 03:24-0500 Body weight 136.[address] Radha Khan MD Work Phone: [facility] 04-13-2024 20:00-0500 Inhaled oxygen concentration 91 % Dr. Radha Khan MD Work Phone: [facility] 01-06-2024 10:49-0400 Body height 175.3 cm Oziel Culp MD Work Phone: [facility] 01-06-2024 10:49-0400 Body mass index (BMI) [Ratio] 46.07 kg/m2 Oziel Culp MD Work Phone: [facility] 01-06-2024 10:49-0400 Body weight 141.52 kg Oziel Culp MD Work Phone: [facility] 01-06-2024 10:49-0400 Diastolic blood pressure 72 mm[Hg] Oziel Culp MD Work Phone: [facility] 01-06-2024 10:49-0400 Heart rate 72 /min Oziel Culp MD Work Phone: [facility] 01-06-2024 10:49-0400 Systolic blood pressure 110 mm[Hg] Oziel Culp MD Work Phone: [facility] 10-05-2023 13:16-0400 Body temperature 97.39 [degF] Joe Rocha MD Work Phone: [facility] 10-05-2023 13:16-0400 Diastolic blood pressure 70 mm[Hg] Joe Rocha MD Work Phone: [facility] 10-05-2023 13:16-0400 Heart rate 83 /min Joe Rocha MD Work Phone: [facility] 10-05-2023 13:16-0400 Respiratory rate 20 /min Joe Rocha MD Work Phone: [facility] 10-05-2023 13:16-0400 SaO2% (BldA) [Mass fraction] 95 % Joe Rocha MD Work Phone: [facility] 10-05-2023 13:16-0400 Systolic blood pressure 107 mm[Hg] Joe Rocha MD Work Phone: [facility] 10-03-2023 15:30-0400 Body temperature 98.06 [degF] CHITO BUENROSTRO CUT OFF MACHINE OPERATOR-BUS OPERATOR [facility] 10-03-2023 15:30-0400 Diastolic Blood Pressure Non-Invasive 73 mm[Hg] CHITO GALINDO-GABRIELA CUT OFF MACHINE OPERATOR-BUS OPERATOR [facility] 10-03-2023 15:30-0400 Heart rate 82 /min CHITO BAIGY-GABRIELA CUT OFF MACHINE OPERATOR-BUS OPERATOR [facility] 10-03-2023 15:30-0400 Reason For Taking VItal Signs CHITO BAIGYFedericoGABRIELA CUT OFF MACHINE OPERATOR-BUS OPERATOR [facility] 10-03-2023 15:30-0400 Respiratory rate 18 /min CHITO GALINDO-GABRIELA CUT OFF MACHINE OPERATOR-BUS OPERATOR [facility] 10-03-2023 15:30-0400 Systolic Blood Pressure Non-Invasive 109 mm[Hg] CHITO BAIGY-GABRIELA CUT OFF MACHINE OPERATOR-BUS OPERATOR [facility] 10-03-2023 13:12-0400 Reason For Taking VItal Signs CHITO AMBROSEGABRIELA CUT OFF MACHINE OPERATOR-BUS OPERATOR [facility] 10-03-2023 11:39-0400 Body temperature 98.24 [degF] CHITO BAIGY-GABRIELA CUT OFF MACHINE OPERATOR-BUS OPERATOR [facility] 10-03-2023 11:39-0400 Diastolic Blood Pressure Non-Invasive 66 mm[Hg] CHITO GALINDO-GABRIELA CUT OFF MACHINE OPERATOR-BUS OPERATOR [facility] 10-03-2023 11:39-0400 Heart rate 80 /min CHITO GALINDO-GABRIELA CUT OFF MACHINE OPERATOR-BUS OPERATOR [facility] 10-03-2023 11:39-0400 Reason For Taking VItal Signs CHITO BAIGYFedericoGABRIELA CUT OFF MACHINE OPERATOR-BUS OPERATOR [facility] 10-03-2023 11:39-0400 Respiratory rate 18 /min CHITO MEDLEY-GABRIELA CUT OFF MACHINE OPERATOR-BUS OPERATOR [facility] 10-03-2023 11:39-0400 Systolic Blood Pressure Non-Invasive 112 mm[Hg] CHITO GALINDOFedericoGABRIELA CUT OFF MACHINE OPERATOR-BUS OPERATOR [facility] 10-03-2023 08:27-0400 Heart rate 79 /min CHITO MEDLEYFedericoGABRIELA CUT OFF MACHINE OPERATOR-BUS OPERATOR [facility] 10-03-2023 06:05-0400 Body temperature 97.88 [degF] CHITO GALINDOFedericoGABRIELA CUT OFF MACHINE OPERATOR-BUS OPERATOR [facility] 10-03-2023 06:05-0400 Diastolic Blood Pressure Non-Invasive 76 mm[Hg] CHITO MEDLEY-GABRIELA CUT OFF MACHINE OPERATOR-BUS OPERATOR [facility] 10-03-2023 06:05-0400 Heart rate 71 /min CHITO BUENROSTRO CUT OFF MACHINE OPERATOR-BUS OPERATOR [facility] 10-03-2023 06:05-0400 Respiratory rate 18 /min CHITO GALINDOFedericoGABRIELA CUT OFF MACHINE OPERATOR-BUS OPERATOR [facility] 10-03-2023 06:05-0400 Systolic Blood Pressure Non-Invasive 112 mm[Hg] CHITO BUENROSTRO CUT OFF MACHINE OPERATOR-BUS OPERATOR [facility] 10-02-2023 08:45-0400 Heart rate 76 /min CHITO MEDLEYFedericoGABRIELA CUT OFF MACHINE OPERATOR-BUS OPERATOR [facility] 10-02-2023 03:49-0400 Heart rate 85 /min CHITO MEDLEY-GABRIELA CUT OFF MACHINE OPERATOR-BUS OPERATOR [facility] 10-02-2023 01:23-0400 Body height 175.3 cm CHITO BUENROSTRO CUT OFF MACHINE OPERATOR-BUS OPERATOR [facility] 10-02-2023 01:23-0400 Body weight 144.7 kg CHITOMATHTEW BUENROSTRO CUT OFF MACHINE OPERATOR-BUS OPERATOR [facility] 10-02-2023 01:23-0400 Body weight 47.09 kg/m2 CHITO JAYFedericoGABRIELA CUT OFF MACHINE OPERATOR-BUS OPERATOR [facility] 10-02-2023 01:17-0400 Heart rate 71 /min CHITOMATTHEW BUENROSTRO CUT OFF MACHINE OPERATOR-BUS OPERATOR [facility] 10-02-2023 00:30-0400 Heart rate 82 /min CHITO MEDLEYFedericoGABRIELA CUT OFF MACHINE OPERATOR-BUS OPERATOR [facility] 07-17-2023 15:35-0400 Body temperature 98.2 [degF] Dr. Radha Khan Work Phone: [facility] 07-17-2023 15:35-0400 Body weight 146.[address] Radha Khan Work Phone: [facility] 07-17-2023 15:35-0400 Diastolic blood pressure 67 mm[Hg] Dr. Radha Khan Work Phone: [facility] 07-17-2023 15:35-0400 Heart rate 80 /min Dr. Radha Khan Work Phone: [facility] 07-17-2023 15:35-0400 Respiratory rate 16 /min Dr. Radha Khan Work Phone: [facility] 07-17-2023 15:35-0400 SaO2% (BldA) [Mass fraction] 95 % Dr. Radha Khan Work Phone: [facility] 07-17-2023 15:35-0400 Systolic blood pressure 121 mm[Hg] Dr. Radha Khan Work Phone: [facility] 07-03-2023 11:02-0400 Body height 175.[address] Radha Khan Work Phone: [facility] 07-03-2023 11:02-0400 Body mass index (BMI) [Ratio] 48.1 kg/m2 Dr. Radha Khan Work Phone: [facility] 07-03-2023 11:02-0400 Body weight 147.[address] Radha Khan Work Phone: [facility] 07-03-2023 11:02-0400 Respiratory rate 16 /min Dr. Radha Khan Work Phone: [facility] 05-21-2023 14:43-0500 Body height 175.[address] Radha Khan Work Phone: [facility] 05-21-2023 14:43-0500 Body mass index (BMI) [Ratio] 48.1 kg/m2 Dr. Radha Khan Work Phone: [facility] 05-21-2023 14:43-0500 Body temperature 97.6 [degF] Dr. Radha Khan Work Phone: [facility] 05-21-2023 14:43-0500 Body weight 147.[address] Radha Khan Work Phone: [facility] 05-21-2023 14:43-0500 Diastolic blood pressure 81 mm[Hg] Dr. Radha Khan Work Phone: [facility] 05-21-2023 14:43-0500 Heart rate 83 /min Dr. Radha Khan Work Phone: [facility] 05-21-2023 14:43-0500 Respiratory rate 18 /min Dr. Radha Khan Work Phone: [facility] 05-21-2023 14:43-0500 SaO2% (BldA) [Mass fraction] 97 % Dr. Radha Khan Work Phone: [facility] 05-21-2023 14:43-0500 Systolic blood pressure 121 mm[Hg] Dr. Radha Khan Work Phone: [facility] 05-20-2023 13:21-0500 Body mass index (BMI) [Ratio] 48.3 kg/m2 Dr. Radha Khan Work Phone: [facility] 05-20-2023 13:21-0500 Body temperature 98.6 [degF] Dr. Radha Khan Work Phone: [facility] 05-20-2023 13:21-0500 Body weight 148.[address] Radha Khan Work Phone: [facility] 05-20-2023 13:21-0500 Diastolic blood pressure 68 mm[Hg] Dr. Radha Khan Work Phone: [facility] 05-20-2023 13:21-0500 Heart rate 76 /min Dr. Radha Khan Work Phone: [facility] 05-20-2023 13:21-0500 Respiratory rate 16 /min Dr. Radha Khan Work Phone: [facility] 05-20-2023 13:21-0500 SaO2% (BldA) [Mass fraction] 98 % Dr. Radha Khan Work Phone: [facility] 05-20-2023 13:21-0500 Systolic blood pressure 102 mm[Hg] Dr. Radha Khan Work Phone: [facility] 03-12-2023 12:03-0500 Diastolic blood pressure 72 mm[Hg] Dr. Radha Khan Work Phone: [facility] 03-12-2023 12:03-0500 Heart rate 101 /min Dr. Radha Khan Work Phone: [facility] 03-12-2023 12:03-0500 Systolic blood pressure 96 mm[Hg] Dr. Radha Khan Work Phone: [facility] 03-12-2023 08:59-0500 Body height 175.[address] Radha Khan Work Phone: [facility] 03-12-2023 08:59-0500 Body mass index (BMI) [Ratio] 47.1 kg/m2 Dr. Radha Khan Work Phone: [facility] 03-12-2023 08:59-0500 Body temperature 97.7 [degF] Dr. Radha Khan Work Phone: [facility] 03-12-2023 08:59-0500 Body weight 144.[address] Radha Khan Work Phone: [facility] 03-12-2023 08:59-0500 Respiratory rate 17 /min Dr. Radha Khan Work Phone: [facility] 03-12-2023 08:59-0500 SaO2% (BldA) [Mass fraction] 97 % Dr. Radha Khan Work Phone: [facility] 02-27-2023 10:43-0500 Body height 175.[address] Radha Khan Work Phone: [facility] 02-27-2023 10:43-0500 Body mass index (BMI) [Ratio] 46.9 kg/m2 Dr. Radha Khan Work Phone: [facility] 02-27-2023 10:43-0500 Body weight 144.[address] Radha Khan Work Phone: [facility] 02-27-2023 10:43-0500 Diastolic blood pressure 71 mm[Hg] Dr. Radha Khan Work Phone: [facility] 02-27-2023 10:43-0500 Heart rate 73 /min Dr. Radha Khan Work Phone: [facility] 02-27-2023 10:43-0500 Respiratory rate 20 /min Dr. Radha Khan Work Phone: [facility] 02-27-2023 10:43-0500 SaO2% (BldA) [Mass fraction] 100 % Dr. Radha Khan Work Phone: [facility] 02-27-2023 10:43-0500 Systolic blood pressure 103 mm[Hg] Dr. Radha Khan Work Phone: [facility] 02-18-2023 11:05-0500 Body temperature 97.8 [degF] Dr. Radha Khan Work Phone: [facility] 02-18-2023 11:05-0500 Diastolic blood pressure 63 mm[Hg] Dr. Radha Khan Work Phone: [facility] 02-18-2023 11:05-0500 Heart rate 69 /min Dr. Radha Khan Work Phone: 7(817)[phone] [place] [address] 02-18-2023 11:05-0500 Respiratory rate 16 /min Dr. Radha Khan Work Phone: 3(367)800-853945 [place] [address] 02-18-2023 11:05-0500 SaO2% (BldA) [Mass fraction] 96 % Dr. Radha Khan Work Phone: [facility] 02-18-2023 11:05-0500 Systolic blood pressure 132 mm[Hg] Dr. Radha Khan Work Phone: [facility] 02-18-2023 09:54-0500 Body height 175.[address] Radha Khan Work Phone: [facility] 02-18-2023 09:54-0500 Body mass index (BMI) [Ratio] 47.5 kg/m2 Dr. Radha Khan Work Phone: [facility] 02-18-2023 09:54-0500 Body weight [address] Radha Khan Work Phone: [facility] 02-04-2023 13:15-0500 Body mass index (BMI) [Ratio] 48.2 kg/m2 Dr. Radha Khan Work Phone: [facility] 02-04-2023 13:15-0500 Body temperature 98 [degF] Dr. Radha Khan Work Phone: [facility] 02-04-2023 13:15-0500 Body weight 148.[address] Radha Khan Work Phone: [facility] 02-04-2023 13:15-0500 Diastolic blood pressure 62 mm[Hg] Dr. Radha Khan Work Phone: [facility] 02-04-2023 13:15-0500 Heart rate 80 /min Dr. Radha Khan Work Phone: [facility] 02-04-2023 13:15-0500 Respiratory rate 18 /min Dr. Radha Khan Work Phone: [facility] 02-04-2023 13:15-0500 SaO2% (BldA) [Mass fraction] 98 % Dr. Radha Khan Work Phone: [facility] 02-04-2023 13:15-0500 Systolic blood pressure 100 mm[Hg] Dr. Radha Khan Work Phone: [facility] 01-01-2023 14:11-0400 Body height 175.[address] Radha Khan Work Phone: [facility] 01-01-2023 14:11-0400 Body mass index (BMI) [Ratio] 47.8 kg/m2 Dr. Radha Khan Work Phone: [facility] 01-01-2023 14:11-0400 Body temperature 97.3 [degF] Dr. Radha Khan Work Phone: [facility] 01-01-2023 14:11-0400 Body weight 146.[address] Radha Khan Work Phone: [facility] 01-01-2023 14:11-0400 Diastolic blood pressure 67 mm[Hg] Dr. Radha Khan Work Phone: [facility] 01-01-2023 14:11-0400 Heart rate 75 /min Dr. Radha Khan Work Phone: [facility] 01-01-2023 14:11-0400 Respiratory rate 17 /min Dr. Radha Khan Work Phone: [facility] 01-01-2023 14:11-0400 SaO2% (BldA) [Mass fraction] 98 % Dr. Radha Khan Work Phone: [facility] 01-01-2023 14:11-0400 Systolic blood pressure 106 mm[Hg] Dr. Radha Khan Work Phone: [facility] 12-10-2022 11:33-0400 Body mass index (BMI) [Ratio] 47.8 kg/m2 Dr. Radha Khan Work Phone: 1(833)[phone] [place] [address] 12-10-2022 11:33-0400 Body temperature 98.3 [degF] Dr. Radha Khan Work Phone: 1(833)[phone] [place] [address] 12-10-2022 11:33-0400 Body weight 146.[address] Radha Khan Work Phone: [facility] 12-10-2022 11:33-0400 Diastolic blood pressure 70 mm[Hg] Dr. Radha Khan Work Phone: 0(432)923-164545 [place] [address] 12-10-2022 11:33-0400 Heart rate 72 /min Dr. Radha Khan Work Phone: 8(436)890-284245 [place] [address] 12-10-2022 11:33-0400 Respiratory rate 16 /min Dr. Radha Khan Work Phone: [facility] 12-10-2022 11:33-0400 SaO2% (BldA) [Mass fraction] 96 % Dr. Radha Khan Work Phone: [facility] 12-10-2022 11:33-0400 Systolic blood pressure 118 mm[Hg] Dr. Radha Khan Work Phone: [facility] 10-08-2022 14:22-0400 Diastolic blood pressure 72 mm[Hg] Dr. Radha Khan Work Phone: [facility] 10-08-2022 14:22-0400 Systolic blood pressure 107 mm[Hg] Dr. Radha Khan Work Phone: [facility] 09-03-2022 13:57-0400 Body height 175.[address] Radha Khan Work Phone: [facility] 09-03-2022 13:57-0400 Body mass index (BMI) [Ratio] 47 kg/m2 Dr. Radha Khan Work Phone: [facility] 09-03-2022 13:57-0400 Body temperature 98.6 [degF] Dr. Radha Khan Work Phone: [facility] 09-03-2022 13:57-0400 Body weight 144.[address] Radha Khan Work Phone: [facility] 09-03-2022 13:57-0400 Diastolic blood pressure 56 mm[Hg] Dr. Radha Khan Work Phone: [facility] 09-03-2022 13:57-0400 Heart rate 62 /min Dr. Radha Khan Work Phone: [facility] 09-03-2022 13:57-0400 Respiratory rate 16 /min Dr. Radha Khan Work Phone: [facility] 09-03-2022 13:57-0400 SaO2% (BldA) [Mass fraction] 94 % Dr. Radha Khan Work Phone: [facility] 09-03-2022 13:57-0400 Systolic blood pressure 90 mm[Hg] Dr. Radha Khan Work Phone: [facility] 08-03-2022 15:30-0400 Body mass index (BMI) [Ratio] 45.4 kg/m2 Dr. Radha Khan Work Phone: [facility] 08-03-2022 15:20-0400 Body temperature 97.9 [degF] Dr. Radha Khan Work Phone: [facility] 08-03-2022 15:20-0400 Diastolic blood pressure 78 mm[Hg] Dr. Radha Khan Work Phone: [facility] 08-03-2022 15:20-0400 Heart rate 107 /min Dr. Radha Khan Work Phone: [facility] 08-03-2022 15:20-0400 Respiratory rate 16 /min Dr. Radha Khan Work Phone: [facility] 08-03-2022 15:20-0400 SaO2% (BldA) [Mass fraction] 97 % Dr. Radha Khan Work Phone: [facility] 08-03-2022 15:20-0400 Systolic blood pressure 144 mm[Hg] Dr. Radha Khna Work Phone: [facility] 08-03-2022 05:22-0400 Body mass index (BMI) [Ratio] 45.4 kg/m2 Dr. Radha Khan Work Phone: [facility] 08-03-2022 05:22-0400 Body weight 139.[address] Radha Khan Work Phone: [facility] 08-02-2022 10:53-0400 Body height 175.[address] Radha Khan Work Phone: [facility] 06-18-2022 14:14-0400 Body height 175.[address] Radha Khan Work Phone: [facility] 06-18-2022 14:14-0400 Body mass index (BMI) [Ratio] 45.8 kg/m2 Dr. Radha Khan Work Phone: [facility] 06-18-2022 14:14-0400 Body temperature 96.7 [degF] Dr. Radha Khan Work Phone: [facility] 06-18-2022 14:14-0400 Body weight 140.[address] Radha Khan Work Phone: [facility] 06-18-2022 14:14-0400 Diastolic blood pressure 70 mm[Hg] Dr. Radha Khan Work Phone: [facility] 06-18-2022 14:14-0400 Heart rate 81 /min Dr. Radha Khan Work Phone: [facility] 06-18-2022 14:14-0400 Respiratory rate 18 /min Dr. Radha Khan Work Phone: [facility] 06-18-2022 14:14-0400 SaO2% (BldA) [Mass fraction] 98 % Dr. Radha Khan Work Phone: [facility] 06-18-2022 14:14-0400 Systolic blood pressure 110 mm[Hg] Dr. Radha Khan Work Phone: [facility] 06-12-2022 07:50-0400 Body mass index (BMI) [Ratio] 45.8 kg/m2 Dr. Radha Khan Work Phone: [facility] 06-12-2022 07:50-0400 Body temperature 97.3 [degF] Dr. Radha Khan Work Phone: [facility] 06-12-2022 07:50-0400 Body weight 140.[address] Radha Khan Work Phone: [facility] 06-12-2022 07:50-0400 Diastolic blood pressure 72 mm[Hg] Dr. Radha Khan Work Phone: [facility] 06-12-2022 07:50-0400 Heart rate 83 /min Dr. Radha Khan Work Phone: [facility] 06-12-2022 07:50-0400 Respiratory rate 18 /min Dr. Radha Khan Work Phone: [facility] 06-12-2022 07:50-0400 SaO2% (BldA) [Mass fraction] 97 % Dr. Radha Khan Work Phone: [facility] 06-12-2022 07:50-0400 Systolic blood pressure 115 mm[Hg] Dr. Radha Khan Work Phone: [facility] 05-21-2022 15:09-0500 Diastolic blood pressure 80 mm[Hg] Dr. Radha Khan Work Phone: [facility] 05-21-2022 15:09-0500 Systolic blood pressure 130 mm[Hg] Dr. Radha Khan Work Phone: [facility] 05-21-2022 15:09-0500 Body mass index (BMI) [Ratio] 45.6 kg/m2 Dr. Radha Khan Work Phone: [facility] 05-21-2022 15:09-0500 Body weight 140.[address] Radha Khan Work Phone: 4(712)[phone] [place] [address] 05-21-2022 15:09-0500 Heart rate 80 /min Dr. Radha Khan Work Phone: [facility] 05-21-2022 15:09-0500 Respiratory rate 18 /min Dr. Radha Khan Work Phone: [facility] 05-21-2022 15:09-0500 SaO2% (BldA) [Mass fraction] 94 % Dr. Radha Khan Work Phone: [facility] 05-09-2022 08:42-0500 Body height 175.[address] Radha Khan Work Phone: [facility] 05-09-2022 08:42-0500 Body weight 136.[address] Radha Khan Work Phone: [facility] 05-08-2022 08:18-0500 Body mass index (BMI) [Ratio] 44.6 kg/m2 Dr. Radha Khan Work Phone: [facility] 05-03-2022 08:34-0500 Body mass index (BMI) [Ratio] 44.6 kg/m2 Dr. Radha Khan Work Phone: [facility] 05-03-2022 08:34-0500 Body weight 136.[address] Radha Khan Work Phone: [facility] 05-03-2022 08:34-0500 Diastolic blood pressure 84 mm[Hg] Dr. Radha Khan Work Phone: [facility] 05-03-2022 08:34-0500 Heart rate 92 /min Dr. Radha Khan Work Phone: [facility] 05-03-2022 08:34-0500 Respiratory rate 20 /min Dr. Radha Khan Work Phone: [facility] 05-03-2022 08:34-0500 SaO2% (BldA) [Mass fraction] 95 % Dr. Radha Khan Work Phone: [facility] 05-03-2022 08:34-0500 Systolic blood pressure 143 mm[Hg] Dr. Radha Khan Work Phone: [facility] 03-12-2022 10:43-0500 Body height 175.[address] Radha Khan Work Phone: [facility] 03-12-2022 10:43-0500 Body mass index (BMI) [Ratio] 45.6 kg/m2 Dr. Radha Khan Work Phone: [facility] 03-12-2022 10:43-0500 Body temperature 97.2 [degF] Dr. Radha Khan Work Phone: [facility] 03-12-2022 10:43-0500 Body weight 140.[address] Radha Khan Work Phone: [facility] 03-12-2022 10:43-0500 Diastolic blood pressure 59 mm[Hg] Dr. Radha Khan Work Phone: [facility] 03-12-2022 10:43-0500 Heart rate 78 /min Dr. Radha Khan Work Phone: [facility] 03-12-2022 10:43-0500 Respiratory rate 18 /min Dr. Radha Khan Work Phone: [facility] 03-12-2022 10:43-0500 SaO2% (BldA) [Mass fraction] 92 % Dr. Radha Khan Work Phone: [facility] 03-12-2022 10:43-0500 Systolic blood pressure 92 mm[Hg] Dr. Radha Khan Work Phone: [facility] 02-19-2022 08:31-0500 Body height 175.[address] Radha Khan Work Phone: [facility] Work Phone: 02-19-2022 08:31-0500 Body mass index (BMI) [Ratio] 45.8 kg/m2 Dr. Radha Khan Work Phone: [facility] 02-19-2022 08:31-0500 Body weight 140.[address] Radha Khan Work Phone: [facility] 02-19-2022 08:31-0500 Diastolic blood pressure 64 mm[Hg] Dr. Radha Khan Work Phone: [facility] 02-19-2022 08:31-0500 Heart rate 68 /min Dr. Radha Khan Work Phone: [facility] 02-19-2022 08:31-0500 Respiratory rate 18 /min Dr. Radha Khan Work Phone: [facility] 02-19-2022 08:31-0500 Systolic blood pressure 125 mm[Hg] Dr. Radha Khan Work Phone: [facility] 02-16-2022 12:47-0500 Body weight 136.[address] Radha Khan Work Phone: [facility] 02-16-2022 12:47-0500 Heart rate 77 /min Dr. Radha Khan Work Phone: [facility] 02-16-2022 12:47-0500 Inhaled oxygen flow rate 2 L/min Dr. Radha Khan Work Phone: 7(697)[phone] [place] [address] 02-16-2022 12:47-0500 SaO2% (BldA) [Mass fraction] 98 % Dr. Radha Khan Work Phone: 3(710)853-067745 [place] [address] 02-12-2022 08:54-0500 Body mass index (BMI) [Ratio] 44.6 kg/m2 Dr. Radha Khan Work Phone: 9(988)846-453274 [address] 02-12-2022 08:54-0500 Body temperature 98.2 [degF] Dr. Radha Khan Work Phone: 8(440)329-306314 [place] [address] 02-12-2022 08:54-0500 Body weight 137.[address] Radha Khan Work Phone: 9(623)429-568474 [address] 02-12-2022 08:54-0500 Diastolic blood pressure 78 mm[Hg] Dr. Radha Khan Work Phone: 1(875)902-633945 [place] [address] 02-12-2022 08:54-0500 Heart rate 69 /min Dr. Radha Khan Work Phone: 7(293)617-608314 [place] [address] 02-12-2022 08:54-0500 Respiratory rate 18 /min Dr. Radha Khan Work Phone: 3(722)749-811714 [place] [address] 02-12-2022 08:54-0500 SaO2% (BldA) [Mass fraction] 98 % Dr. Radha Khan Work Phone: 6(986)182-259545 [place] [address] 02-12-2022 08:54-0500 Systolic blood pressure 122 mm[Hg] Dr. Radha Khan Work Phone: 3(496)368-520874 [address] 01-15-2022 10:51-0400 Body mass index (BMI) [Ratio] 45.5 kg/m2 Dr. Radha Khan Work Phone: [phone] [place] [address] 01-15-2022 10:51-0400 Body temperature 97 [degF] Dr. Radha Khan Work Phone: [phone] [place] [address] 01-15-2022 10:51-0400 Body weight 139.[address] Radha Khan Work Phone: [facility] 01-15-2022 10:51-0400 Diastolic blood pressure 76 mm[Hg] Dr. Radha Khan Work Phone: [facility] 01-15-2022 10:51-0400 Heart rate 76 /min Dr. Radha Khan Work Phone: [facility] 01-15-2022 10:51-0400 Respiratory rate 18 /min Dr. Radha Khan Work Phone: [facility] 01-15-2022 10:51-0400 SaO2% (BldA) [Mass fraction] 93 % Dr. Radha Khan Work Phone: [facility] 01-15-2022 10:51-0400 Systolic blood pressure 124 mm[Hg] Dr. Radha Khan Work Phone: [facility] 11-13-2021 15:28-0400 Body mass index (BMI) [Ratio] 44.6 kg/m2 Dr. Radha Khan Work Phone: [facility] Work Phone: 11-13-2021 15:28-0400 Body weight 136.[address] Radha Khan Work Phone: [facility] Work Phone: 11-13-2021 15:28-0400 Diastolic blood pressure 64 mm[Hg] Dr. Radha Khan Work Phone: [facility] Work Phone: 11-13-2021 15:28-0400 Heart rate 79 /min Dr. Radha Khan Work Phone: [facility] Work Phone: 11-13-2021 15:28-0400 Respiratory rate 18 /min Dr. Radha Khan Work Phone: [facility] Work Phone: 11-13-2021 15:28-0400 Systolic blood pressure 110 mm[Hg] Dr. Radha Khan Work Phone: [facility] Work Phone: 09-07-2021 14:21-0400 Body height 175.[address] Radha Khan Work Phone: [facility] Work Phone: 09-07-2021 14:21-0400 Body mass index (BMI) [Ratio] 45 kg/m2 Dr. Radha Khan Work Phone: [facility] Work Phone: 09-07-2021 14:21-0400 Body weight 138.[address] Radha Khan Work Phone: [facility] Work Phone: 09-07-2021 14:21-0400 Diastolic blood pressure 79 mm[Hg] Dr. Radha Khan Work Phone: [facility] Work Phone: 09-07-2021 14:21-0400 Heart rate 79 /min Dr. Radha Khan Work Phone: [facility] Work Phone: 09-07-2021 14:21-0400 Respiratory rate 18 /min Dr. Radha Khan Work Phone: [facility] Work Phone: 09-07-2021 14:21-0400 SaO2% (BldA) [Mass fraction] 96 % Dr. Radha Khan Work Phone: [facility] Work Phone: 09-07-2021 14:21-0400 Systolic blood pressure 153 mm[Hg] Dr. Radha Khan Work Phone: [facility] Work Phone: 09-04-2021 10:10-0400 Diastolic blood pressure 82 mm[Hg] Dr. Radha Khan Work Phone: [facility] Work Phone: 09-04-2021 10:10-0400 Systolic blood pressure 172 mm[Hg] Dr. Radha Khan Work Phone: [facility] Work Phone: 09-04-2021 09:10-0400 Heart rate 78 /min Dr. Radha Khan Work Phone: [facility] Work Phone: 09-04-2021 09:10-0400 SaO2% (BldA) [Mass fraction] 95 % Dr. Radha Khan Work Phone: [facility] Work Phone: 09-04-2021 08:44-0400 Respiratory rate 16 /min Dr. Radha Khan Work Phone: [facility] Work Phone: 09-04-2021 06:22-0400 Body height 175.[address] Radha Khan Work Phone: [facility] Work Phone: 09-04-2021 06:22-0400 Body mass index (BMI) [Ratio] 45.1 kg/m2 Dr. Radha Khan Work Phone: [facility] Work Phone: 09-04-2021 06:22-0400 Body temperature 97.4 [degF] Dr. Radha Khan Work Phone: [facility] Work Phone: 09-04-2021 06:22-0400 Body weight 138.[address] Radha Khan Work Phone: [facility] Work Phone: 08-10-2021 13:42-0400 Body mass index (BMI) [Ratio] 44.5 kg/m2 Dr. Radha Khan Work Phone: [facility] Work Phone: 08-10-2021 13:42-0400 Body temperature 95.7 [degF] Dr. Radha Khan Work Phone: [facility] Work Phone: 08-10-2021 13:42-0400 Body weight 136.[address] Radha Khan Work Phone: [facility] Work Phone: 08-10-2021 13:42-0400 Diastolic blood pressure 80 mm[Hg] Dr. Radha Khan Work Phone: [facility] Work Phone: 08-10-2021 13:42-0400 Heart rate 84 /min Dr. Radha Khan Work Phone: [facility] Work Phone: 08-10-2021 13:42-0400 Respiratory rate 18 /min Dr. Radha Khan Work Phone: [facility] Work Phone: 08-10-2021 13:42-0400 SaO2% (BldA) [Mass fraction] 96 % Dr. Radha Khan Work Phone: [facility] Work Phone: 08-10-2021 13:42-0400 Systolic blood pressure 140 mm[Hg] Dr. Radha Khan Work Phone: [facility] Work Phone: 08-10-2021 13:42-0400 Body height 175.[address] Radha Khan Work Phone: [facility] Work Phone: 08-10-2021 13:42-0400 Body mass index (BMI) [Ratio] 44.5 kg/m2 Dr. Radha Khan Work Phone: [facility] Work Phone: 08-10-2021 13:42-0400 Body temperature 95.7 [degF] Dr. Radha Khan Work Phone: [facility] Work Phone: 08-10-2021 13:42-0400 Body weight 136.[address] Radha Khan Work Phone: [facility] Work Phone: 08-10-2021 13:42-0400 Diastolic blood pressure 80 mm[Hg] Dr. Radha Khan Work Phone: [facility] Work Phone: 08-10-2021 13:42-0400 Heart rate 84 /min Dr. Radha Khan Work Phone: [facility] Work Phone: 08-10-2021 13:42-0400 Respiratory rate 18 /min Dr. Radha Khan Work Phone: [facility] Work Phone: 08-10-2021 13:42-0400 SaO2% (BldA) [Mass fraction] 96 % Dr. Radha Khan Work Phone: [facility] Work Phone: 08-10-2021 13:42-0400 Systolic blood pressure 140 mm[Hg] Dr. Radha Khan Work Phone: [facility] Work Phone: 07-16-2021 16:25-0400 Body temperature 98.7 [degF] Dr. Radha Khan Work Phone: [facility] Work Phone: 07-16-2021 16:25-0400 Diastolic blood pressure 75 mm[Hg] Dr. Radha Khan Work Phone: [facility] Work Phone: 07-16-2021 16:25-0400 Heart rate 73 /min Dr. Radha Khan Work Phone: [facility] Work Phone: 07-16-2021 16:25-0400 Respiratory rate 18 /min Dr. Radha Khan Work Phone: [facility] Work Phone: 07-16-2021 16:25-0400 SaO2% (BldA) [Mass fraction] 99 % Dr. Radha Khan Work Phone: [facility] Work Phone: 07-16-2021 16:25-0400 Systolic blood pressure 155 mm[Hg] Dr. Radha Khan Work Phone: [facility] Work Phone: 07-16-2021 14:17-0400 Body height 175.[address] Radha Khan Work Phone: [facility] Work Phone: 07-16-2021 14:17-0400 Body mass index (BMI) [Ratio] 44.9 kg/m2 Dr. Radha Khan Work Phone: [facility] Work Phone: 07-16-2021 14:17-0400 Body weight [address] Radha Khan Work Phone: [facility] Work Phone: 07-13-2021 10:31-0400 Body mass index (BMI) [Ratio] 44.4 kg/m2 Dr. Radha Khan Work Phone: [facility] Work Phone: 07-13-2021 10:31-0400 Body temperature 98.2 [degF] Dr. Radha Khan Work Phone: [facility] Work Phone: 07-13-2021 10:31-0400 Body weight 136.[address] Radha Khan Work Phone: [facility] Work Phone: 07-13-2021 10:31-0400 Diastolic blood pressure 72 mm[Hg] Dr. Radha Khan Work Phone: [facility] Work Phone: 07-13-2021 10:31-0400 Heart rate 73 /min Dr. Radha Khan Work Phone: [facility] Work Phone: 07-13-2021 10:31-0400 Respiratory rate 17 /min Dr. Radha Khan Work Phone: [facility] Work Phone: 07-13-2021 10:31-0400 SaO2% (BldA) [Mass fraction] 99 % Dr. Radha Khan Work Phone: [facility] Work Phone: 07-13-2021 10:31-0400 Systolic blood pressure 115 mm[Hg] Dr. Radha Khan Work Phone: [facility] Work Phone: 07-13-2021 10:31-0400 Body mass index (BMI) [Ratio] 44.4 kg/m2 Dr. Radha Khan Work Phone: [facility] Work Phone: 07-13-2021 10:31-0400 Body temperature 98.2 [degF] Dr. Radha Khan Work Phone: [facility] Work Phone: 07-13-2021 10:31-0400 Body weight 136.[address] Radha Khan Work Phone: [facility] Work Phone: 07-13-2021 10:31-0400 Diastolic blood pressure 72 mm[Hg] Dr. Radha Khan Work Phone: [facility] Work Phone: 07-13-2021 10:31-0400 Heart rate 73 /min Dr. Radha Khan Work Phone: [facility] Work Phone: 07-13-2021 10:31-0400 Respiratory rate 17 /min Dr. Radha Khan Work Phone: [facility] Work Phone: 07-13-2021 10:31-0400 SaO2% (BldA) [Mass fraction] 99 % Dr. Radha Khan Work Phone: [facility] Work Phone: 07-13-2021 10:31-0400 Systolic blood pressure 115 mm[Hg] Dr. Radha Khan Work Phone: [facility] Work Phone: 07-12-2021 12:50-0400 Body weight 136.[address] Radha Khan Work Phone: [facility] Work Phone: 07-12-2021 12:50-0400 Diastolic blood pressure 83 mm[Hg] Dr. Radha Khan Work Phone: [facility] Work Phone: 07-12-2021 12:50-0400 Heart rate 72 /min Dr. Radha Khan Work Phone: [facility] Work Phone: 07-12-2021 12:50-0400 Respiratory rate 18 /min Dr. Radha Khan Work Phone: [facility] Work Phone: 07-12-2021 12:50-0400 SaO2% (BldA) [Mass fraction] 100 % Dr. Radha Khan Work Phone: [facility] Work Phone: 07-12-2021 12:50-0400 Systolic blood pressure 148 mm[Hg] Dr. Radha Khan Work Phone: [facility] Work Phone: 07-12-2021 12:50-0400 Body weight 136.[address] Radha Khan Work Phone: [facility] Work Phone: 07-12-2021 12:50-0400 Diastolic blood pressure 83 mm[Hg] Dr. Radha Khan Work Phone: [facility] Work Phone: 07-12-2021 12:50-0400 Heart rate 72 /min Dr. Radha Khan Work Phone: [facility] Work Phone: 07-12-2021 12:50-0400 Respiratory rate 18 /min Dr. Radha Khan Work Phone: [facility] Work Phone: 07-12-2021 12:50-0400 SaO2% (BldA) [Mass fraction] 100 % Dr. Radha Khan Work Phone: [facility] Work Phone: 07-12-2021 12:50-0400 Systolic blood pressure 148 mm[Hg] Dr. Radha Khan Work Phone: [facility] Work Phone: 06-29-2021 13:09-0400 Body mass index (BMI) [Ratio] 43.6 kg/m2 Dr. Radha Khan Work Phone: [facility] Work Phone: 06-29-2021 13:09-0400 Body temperature 96.9 [degF] Dr. Radha Khan Work Phone: [facility] Work Phone: 06-29-2021 13:09-0400 Body weight 133.[address] Radha Khan Work Phone: [facility] Work Phone: 06-29-2021 13:09-0400 Diastolic blood pressure 76 mm[Hg] Dr. Radha Khan Work Phone: [facility] Work Phone: 06-29-2021 13:09-0400 Heart rate 98 /min Dr. Radha Khan Work Phone: [facility] Work Phone: 06-29-2021 13:09-0400 Respiratory rate 18 /min Dr. Radha Khan Work Phone: [facility] Work Phone: 06-29-2021 13:09-0400 SaO2% (BldA) [Mass fraction] 98 % Dr. Radha Khan Work Phone: [facility] Work Phone: 06-29-2021 13:09-0400 Systolic blood pressure 110 mm[Hg] Dr. Radha Khan Work Phone: [facility] Work Phone: 06-29-2021 13:09-0400 Body mass index (BMI) [Ratio] 43.6 kg/m2 Dr. Radha Khan Work Phone: [facility] Work Phone: 06-29-2021 13:09-0400 Body temperature 96.9 [degF] Dr. Radha Khan Work Phone: [facility] Work Phone: 06-29-2021 13:09-0400 Body weight 133.[address] Radha Khan Work Phone: [facility] Work Phone: 06-29-2021 13:09-0400 Diastolic blood pressure 76 mm[Hg] Dr. Radha Khan Work Phone: [facility] Work Phone: 06-29-2021 13:09-0400 Heart rate 98 /min Dr. Radha Khan Work Phone: [facility] Work Phone: 06-29-2021 13:09-0400 Respiratory rate 18 /min Dr. Radha Khan Work Phone: [facility] Work Phone: 06-29-2021 13:09-0400 SaO2% (BldA) [Mass fraction] 98 % Dr. Radha Khan Work Phone: [facility] Work Phone: 06-29-2021 13:09-0400 Systolic blood pressure 110 mm[Hg] Dr. Radha Khan Work Phone: [facility] Work Phone: 06-20-2021 12:08-0400 Heart rate 90 /min Dr. Radha Khan Work Phone: [facility] Work Phone: 06-20-2021 10:32-0400 SaO2% (BldA) [Mass fraction] 95 % Dr. Radha Khan Work Phone: [facility] Work Phone: 06-20-2021 09:00-0400 Body temperature 97.8 [degF] Dr. Radha Khan Work Phone: [facility] Work Phone: 06-20-2021 09:00-0400 Diastolic blood pressure 82 mm[Hg] Dr. Radha Khan Work Phone: [facility] Work Phone: 06-20-2021 09:00-0400 Respiratory rate 18 /min Dr. Radha Khan Work Phone: [facility] Work Phone: 06-20-2021 09:00-0400 Systolic blood pressure 154 mm[Hg] Dr. Radha Khan Work Phone: [facility] Work Phone: 06-20-2021 06:00-0400 Body weight [address] Radha Khan Work Phone: [facility] Work Phone: 06-19-2021 10:46-0400 Body mass index (BMI) [Ratio] 44.3 kg/m2 Dr. Radha Khan Work Phone: [facility] Work Phone: 06-15-2021 14:08-0400 Body weight 139.[address] Radha Khan Work Phone: [facility] Work Phone: 06-15-2021 14:08-0400 Heart rate 84 /min Dr. Radha Khan Work Phone: [facility] Work Phone: 06-15-2021 14:08-0400 SaO2% (BldA) [Mass fraction] 97 % Dr. Radha Khan Work Phone: [facility] Work Phone: 06-01-2021 13:31-0500 Body mass index (BMI) [Ratio] 43.9 kg/m2 Dr. Radha Khan Work Phone: [facility] Work Phone: 06-01-2021 13:31-0500 Body temperature 96.9 [degF] Dr. Radha Khan Work Phone: [facility] Work Phone: 06-01-2021 13:31-0500 Body weight 134.[address] Radha Khan Work Phone: [facility] Work Phone: 06-01-2021 13:31-0500 Diastolic blood pressure 70 mm[Hg] Dr. Radha Khan Work Phone: [facility] Work Phone: 06-01-2021 13:31-0500 Heart rate 78 /min Dr. Radha Khan Work Phone: [facility] Work Phone: 06-01-2021 13:31-0500 Respiratory rate 18 /min Dr. Radha Khan Work Phone: [facility] Work Phone: 06-01-2021 13:31-0500 SaO2% (BldA) [Mass fraction] 100 % Dr. Radha Khan Work Phone: [facility] Work Phone: 06-01-2021 13:31-0500 Systolic blood pressure 110 mm[Hg] Dr. Radha Khan Work Phone: [facility] Work Phone: 06-01-2021 12:31-0500 Body mass index (BMI) [Ratio] 43.9 kg/m2 Dr. Radha Khan Work Phone: [facility] Work Phone: 06-01-2021 12:31-0500 Body temperature 96.9 [degF] Dr. Radha Khan Work Phone: [facility] Work Phone: 06-01-2021 12:31-0500 Body weight 134.[address] Radha Khan Work Phone: [facility] Work Phone: 06-01-2021 12:31-0500 Diastolic blood pressure 70 mm[Hg] Dr. Radha Khan Work Phone: [facility] Work Phone: 06-01-2021 12:31-0500 Heart rate 78 /min Dr. Radha Khan Work Phone: [facility] Work Phone: 06-01-2021 12:31-0500 Respiratory rate 18 /min Dr. Radha Khan Work Phone: [facility] Work Phone: 06-01-2021 12:31-0500 SaO2% (BldA) [Mass fraction] 100 % Dr. Radha Khan Work Phone: [facility] Work Phone: 06-01-2021 12:31-0500 Systolic blood pressure 110 mm[Hg] Dr. Radha Khan Work Phone: [facility] Work Phone: 10-13-2020 15:48-0400 Body mass index (BMI) [Ratio] 45.2 kg/m2 Dr. Radha Khan Work Phone: [facility] Work Phone: 10-13-2020 15:48-0400 Body mass index (BMI) [Ratio] 45.2 kg/m2 Dr. Radha Khan Work Phone: [facility] Work Phone: Encounters Encounter Date Encounter Type Care Provider Facility Start: 12-17-2024 End: 12-17-2024 ambulatory [facility] Facility:[facility] Start: 12-17-2024 ambulatory [facility] Start: 12-17-2024 [facility] Start: 12-16-2024 ambulatory [facility] Start: 12-10-2024 End: 12-10-2024 Dr. Brandt Winter MD -Medical Out Work Phone: Start: 12-10-2024 End: 12-10-[address] Radha Khan MD Work Phone: -Medical Out Start: 12-09-2024 ambulatory Rito Lundberg Facili ty:[facility] Start: 12-09-2024 Dr. Rito olvera MD -[facility] Start: 11-28-2024 Dr[facility] Work Phone: Start: 11-27-2024 Dr. [facility] Work Phone: Start: 11-26-2024 ambulatory Brandt Winter Facility:[facility] Start: 11-26-2024 End: 11-28-2024 Evaluation and management of inpatient Dr. Radha Khan MD Work Phone: -Progressive Care Unit Start: 11-26-2024 End: 11-28-2024 Dr. Ochoa Johnson DO -[facility] Work Phone: Start: 11-25-2024 End: 11-25-2024 THERAPEUTIC STRATEGY LEAD Chen Rojas -[facility] Work Phone: Start: 11-25-2024 End: 11-25-[address] Radha Khan MD Work Phone: [facility] Start: 11-19-2024 End: 11-19-[address] Radha Khan MD Work Phone: -Occupational Therapy Start: 11-19-2024 End: 11-19-2024 Dr. Karina Benítez DO -Occupational Therap y Work Phone: Start: 11-13-2024 End: 11-13-2024 Office outpatient visit 40 minutes Rosalino Padron MD Work Phone: [facility] Comment on above: ILD (interstitial lavonne ng disease) (Multi) (Primary Dx); Chronic respiratory failure with hypoxia; BMI 40.0-44.9, adult (Multi); Diastolic heart failure, unspecified HF chronicity Start: 11-13-2024 End: 11-13-2024 ambulatory ROSALINO PADRON [facility] Start: 11-12-2024 End: 11-12-2024 Dr. Toni Vann MD -[facility] Work Phone: Start: 11-12-2024 End: 11-12-[address] Radha Khan MD Work Phone: [facility] Start: 11-09-2024 Dr. Karina Benítez DO -Phy sical Therapy Work Phone: Start: 11-03-2024 End: 11-03-[address] Radha Khan MD Work Phone: -[facility] Start: 11-03-2024 End: 11-03-2024 Dr. Rito Lundberg MD -[facility] Work Phone: Start: 11-02-2024 Dr. Karina Benítez DO -Phy sical Therapy Work Phone: Start: 10-31-2024 End: 11-02-2024 Refill Mey Loya CUT OFF MACHINE OPERATOR - BUS OPERATOR Work Phone: [facility] Comment on above: Bilateral carotid ar christine stenosis Start: 10-27-2024 End: 10-27-2024 Lydia Segura [facility] Work Phone: Start: 10-27-2024 End: 10-27-[address] Radha Khan MD Work Phone: [facility] Start: 10-25-2024 End: 10-27-2024 Refill Mey Loya CUT OFF MACHINE OPERATOR - BUS OPERATOR Work Phone: [facility] Comment on above: Bilateral carotid ar christine stenosis Start: 10-23-2024 Dr. Karina Benítez DO -Spe ech Therapy Work Phone: Start: 10-13-2024 End: 10-13-[address] Radha Khan MD Work Phone: [facility] Start: 10-13-2024 End: 10-13-2024 Dr. Karina Benítez DO -Occupational Therap y Work Phone: Start: 10-12-2024 End: 10-12-2024 Dr. Toni Vann MD -[facility] Work Phone: Start: 10-12-2024 End: 10-13-[address] Radha Khan MD Work Phone: -[facility] Start: 10-05-2024 Dr. Karina Benítez DO -Phy sical Therapy Work Phone: Start: 09-28-2024 Dr. Karina Benítez DO -[facility] Work Phone: Start: 09-28-2024 ambulatory Brandt Winter Facility:[facility] Start: 09-28-2024 Dr. Sarah Parada MD - [facility] Start: 09-27-2024 Dr. Karina Benítez DO -[facility] Work Phone: Start: 09-26-2024 ambulatory Karina Benítez Facility:[facility] Start: 09-26-2024 End: 09-28-2024 Evaluation and management of inpatient Dr. Radha Khan MD Work Phone: -Progressive Care Unit Start: 09-26-2024 End: 09-28-2024 Dr. Karina Benítez DO -Progressive Care Un it Work Phone: Start: 09-26-2024 ambulatory Edmund Dey Facility:[facility] Start: 09-26-2024 Dr. Xiao Berrios MD -[facility] Work Phone: Start: 09-26-2024 Evaluation and manag ement of inpatient Dr. Xiao Berrios MD -Progressive Care Unit Work Phone: Start: 09-26-[address] Radha Khan MD Work Phone: -Progressive Care Unit Start: 09-24-2024 End: 09-24-2024 Subsequent hospital visit by physician [facility] Comment on above: Arrived Start: 09-24-2024 End: 09-24-[address] [facility] Start: 09-24-2024 End: 09-24-2024 Subsequent hospital visit by physician Dick Nguyen MD Work Phone: [facility] Comment on above: ILD (interstitial lavonne ng disease) (Multi) Start: 09-24-2024 End: 09-24-[address] [facility] Start: 09-16-2024 End: 09-16-2024 Patient encounter procedure Jessica Gerardo NP-[facility] -[facility] Work Phone: Start: 09-16-2024 End: 09-16-2024 Jessica SHELDON -[facility] Work Phone: Start: 09-16-2024 End: 09-16-[address] Radha Khan MD Work Phone: [facility] Work Phone: Start: 09-15-2024 End: 09-15-[address] Toni Vann MD -[facility] Work Phone: Start: 09-15-2024 End: 09-15-2024 Dr. Toni Vann MD -[facility] Work Phone: Start: 09-15-2024 End: 09-15-[address] Radha Khan MD Work Phone: [facility] Work Phone: Start: 08-28-2024 End: 08-28-2024 Office outpatient visit 40 minutes Rosalino Padron MD Work Phone: [facility] Comment on above: ILD (interstitial lavonne ng disease) (Multi) (Primary Dx); Chronic respiratory failure with hypoxia; KIANNA (obstructive sleep apnea); BMI 40.0-44.9, adult (Multi); Diastolic heart failure, unspecified HF chronicity Start: 08-28-2024 End: 08-28-[address] [facility] Start: 08-18-2024 End: 08-18-2024 Subsequent hospital visit by physician Oni Rousseau Pft Rm 2 [facility] Comment on above: ILD (interstitial lavonne ng disease) (Multi) Start: 08-18-2024 End: 08-18-[address] [facility] Start: 08-17-2024 End: 08-17-[address] Toni Vann MD -[facility] Work Phone: Start: 08-17-2024 End: 08-17-2024 Dr. Toni Vann MD -[facility] Work Phone: Start: 08-17-2024 End: 08-17-[address] Radha Khan MD Work Phone: [facility] Work Phone: Start: 08-12-2024 End: 08-12-2024 Patient encounter procedure Sumanth Hanna MD -[facility] Work Phone: Start: 08-12-2024 End: 08-12-2024 Sumanth Hanna MD -[facility] Work Phone: Start: 08-12-2024 End: 08-12-[address] Radha Khan MD Work Phone: [facility] Work Phone: Start: 08-12-2024 End: 08-12-2024 ambulatory [facility] Facility:[facility] Start: 08-07-2024 End: 08-07-2024 Office outpatient visit 40 minutes Rosalino Padron MD Work Phone: [facility] Comment on above: ILD (interstitial lavonne ng disease) (Multi) (Primary Dx); Chronic respiratory failure with hypoxia; KIANNA (obstructive sleep apnea); BMI 40.0-44.9, adult (Multi); Diastolic heart failure, unspecified HF chronicity Start: 08-07-2024 End: 08-07-[address] [facility] Start: 08-06-2024 End: 08-06-[address] Toni Vann MD -[facility] Work Phone: Start: 08-06-2024 End: 08-06-2024 Dr. Toni Vann MD -[facility] Work Phone: Start: 08-06-2024 End: 08-06-2024 ambulatory Radha Khan Facility:[facility] Start: 07-24-2024 End: 07-24-2024 Subsequent hospital visit by physician Clifford Witt Room [facility] Comment on above: ILD (interstitial lavonne ng disease) (Multi) Start: 07-24-2024 End: 07-24-2024 ambulatory [facility] Start: 07-23-2024 End: 07-23-2024 Subsequent hospital visit by physician Michael Stallings [facility] Comment on above: Pulmonary hypertensi on (Multi) Start: 07-23-2024 End: 07-23-2024 ambulatory [facility] Start: 07-20-2024 End: 07-20-2024 Subsequent hospital visit by physician Lorenza C[address] [facility] Comment on above: ILD (interstitial lavonne ng disease) (Multi) Start: 07-20-2024 End: 07-20-2024 ambulatory [facility] Start: 07-06-2024 End: 07-06-[address] Toni Vann MD -[facility] Work Phone: Start: 07-06-2024 End: 07-06-2024 Dr. Toni Vann MD -[facility] Work Phone: Start: 07-06-2024 End: 07-06-2024 ambulatory Radha S Jolliff [facility] Start: 06-26-2024 End: 06-26-2024 Office outpatient new 60 minutes Rosalino Padron MD Work Phone: [facility] Comment on above: ILD (interstitial lavonne ng disease) (Multi) (Primary Dx); Pulmonary hypertension (Multi); Chronic respiratory failure with hypoxia (Multi) Start: 06-26-2024 End: 06-26-[address] [facility] Start: 06-10-2024 End: 06-10-2024 Patient encounter procedure SAV Rojas -[facility] Work Phone: Start: 06-10-2024 End: 06-10-2024 [facility] Work Phone: Start: 06-10-2024 End: 06-10-2024 ambulatory Radha S Jolliff [facility] Start: 06-04-2024 End: 06-04-[address] Toni Vann MD -[facility] Work Phone: Start: 06-04-2024 End: 06-04-2024 Dr. Toni Vann MD -[facility] Work Phone: Start: 06-04-2024 End: 06-04-2024 ambulatory Radha S Jolliff [facility] Start: 06-02-2024 End: 06-02-2024 Patient encounter procedure THERAPEUTIC STRATEGY LEAD Chen Rojas -Sleep Lab Work Phone: Start: 06-02-2024 End: 06-02-2024 THERAPEUTIC STRATEGY LEAD Chen Rojas -Sleep Lab Work Phone: Start: 06-02-2024 End: 06-02-2024 ambulatory Radha S Jolliff Facility:[facility] Start: 05-28-2024 Non-patient / Non-visit Dr. Jemima MCRAE -[facility] Work Phone: Start: 05-28-2024 ambulatory Radha S Jolliff Facility: [facility] Start: 05-28-2024 Registered Referred Lydia GRIFFITHS -Cardiovascular Services Work Phone: Start: 05-28-2024 Dr. Sumanth Hanna MD -[facility] Work Phone: Start: 05-21-2024 End: 05-21-2024 Patient encounter procedure Lydia GRIFFITHS -Laboratory Work Phone: Start: 05-21-2024 End: 05-21-2024 Lydia GRIFFITHS -Laboratory Work Phone: Start: 05-21-2024 End: 05-21-2024 Patient encounter procedure Lydia GRIFFITHS -[facility] Work Phone: Start: 05-21-2024 End: 05-21-2024 Lydia GRIFFITHS -[facility] Work Phone: Start: 05-21-2024 End: 05-21-2024 ambulatory Radha S Jolliff [facility] Start: 05-21-2024 End: 05-21-2024 ambulatory Radha S Jolliff Facility:[facility] Start: 05-08-2024 End: 05-08-2024 Telephone encounter Oziel Culp MD Work Phone: [facility] Neurology Start: 05-07-2024 End: 05-08-2024 Orders Only Mey Loya CUT OFF MACHINE OPERATOR - BUS OPERATOR Work Phone: [facility] Neurology Comment on above: Bilateral carotid ar christine stenosis (Primary Dx) Start: 05-06-2024 End: 05-06-2024 Subsequent hospital visit by physician Ach Ecg [facility] Comment on above: Arrived Ischemic cerebrovasc ular accident (CVA) (HCC); Bilateral carotid artery stenosis Start: 05-06-2024 End: 05-06-2024 ambulatory MEY LOYA [facility] Start: 05-05-2024 End: 05-05-2024 ambulatory Radha S Jolliff [facility] Start: 05-05-2024 End: 05-05-2024 Dr. Rito Lundberg MD -[facility] Work Phone: Start: 05-01-2024 End: 05-01-2024 THERAPEUTIC STRATEGY LEAD Chen Rojas [facility] Work Phone: Start: 05-01-2024 End: 05-01-2024 ambulatory Radha S Jolliff [facility] Start: 04-30-2024 End: 04-30-2024 Dr. Ochoa Dobbs MD -[facility] Work Phone: Start: 04-30-2024 End: 04-30-2024 ambulatory Radha S Jolliff [facility] Start: 04-30-2024 End: 04-30-2024 Dr. Toni Vann MD -[facility] Work Phone: Start: 04-30-2024 End: 04-30-2024 ambulatory Radha S Jolliff [facility] Start: 04-27-2024 End: 04-27-2024 Office outpatient visit 25 minutes Suzy Jauregui MD Work Phone: [facility] - [place] Comment on above: Cerebrovascular acci dent (CVA), unspecified mechanism (HCC) (Primary Dx); Bilateral carotid artery stenosis Start: 04-27-2024 End: 04-27-2024 ambulatory [facility] Start: 04-25-2024 Dr. Ochoa Johnson DO -[facility] Work Phone: Start: 04-24-2024 ambulatory Radha S Jolliff [facility]: [facility] Start: 04-24-2024 End: 04-25-2024 Evaluation and management of inpatient Edmund Dey Facility:[facility] Start: 04-24-2024 End: 04-25-2024 Dr. Ochoa Johnson DO -Progressive Care Un it Work Phone: Start: 04-24-2024 End: 04-24-2024 Dr. Radha Khan MD -Laboratory [facility] Start: 04-24-2024 End: 04-24-2024 ambulatory Radha S Jolliff Facility:[facility] Start: 04-23-2024 End: 04-23-2024 Telephone encounter Jessica Clifton RN [facility] Special Procedur es Start: 04-22-2024 End: 04-22-2024 THERAPEUTIC STRATEGY LEAD Chen Rojas -[facility] Work Phone: Start: 04-22-2024 End: 04-22-2024 ambulatory Radha S Jolliff [facility] Start: 04-20-2024 ambulatory Radha S Jolliff [facility]: [facility] Start: 04-16-2024 End: 04-16-2024 Jessica Gerardo THERAPEUTIC STRATEGY LEAD-C -[facility] Work Phone: Start: 04-16-2024 End: 04-16-2024 ambulatory Radha S Jolliff [facility] Start: 04-15-2024 Dr. Cuco Soler MD -[facility] Inpatient Physicians Work Phone: Start: 04-14-2024 ambulatory Radha S Jolliff Facility: [facility] Start: 04-13-2024 ambulatory Fran Rodriguez [facility] Start: 04-12-2024 ambulatory Radha S Jolliff [facility]: [facility] Start: 04-12-2024 End: 04-15-2024 Evaluation and management of inpatient Eduin Ospina Facility:[facility] Start: 04-12-2024 End: 04-15-2024 Dr. Cuco Soler MD -Progressive Care U nit Work Phone: Start: 04-09-2024 End: 04-09-2024 ambulatory Fior Vallejo THERAPEUTIC STRATEGY LEAD Facility:[facility] Start: 04-06-2024 End: 04-06-2024 Subsequent hospital visit by physician Suzy Jauregui MD Work Phone: [facility] Comment on above: Bilateral carotid ar christine occlusion Start: 04-06-2024 End: 04-06-2024 ambulatory SUZY JAUREGUI [facility] Start: 03-30-2024 End: 03-30-2024 ambulatory Toni Vann Facility[facility] Start: 03-30-2024 ambulatory Fran Rodriguez [facility] Start: 03-30-2024 End: 03-30-2024 ambulatory Fior Vallejo THERAPEUTIC STRATEGY LEAD Facility:[facility] Start: 03-27-2024 ambulatory Radha S Jolliff [facility]: [facility] Start: 03-27-2024 End: 03-27-2024 ambulatory Radha S Jolliff Facility:[facility] Start: 03-23-2024 End: 03-23-2024 ambulatory Radha S Jolliff Facility:[facility] Start: 03-13-2024 End: 03-13-2024 ambulatory Radha S Jolliff Facility:[facility] Start: 03-03-2024 ambulatory Tia Boyd Fa cility:[facility] Start: 03-02-2024 ambulatory Xiao Berrios [facility] Start: 03-02-2024 End: 03-04-2024 Evaluation and management of inpatient Radha S Jolliff Facility:[facility] Start: 02-26-2024 End: 02-26-2024 Emergency department patient visit Radha S Jolliff Facility:[facility] Start: 02-21-2024 ambulatory Mireya Apontei ty:[facility] Start: 02-20-2024 End: 02-20-2024 ambulatory Radha S Jolliff Facility:[facility] Start: 02-18-2024 End: 02-18-2024 ambulatory Radha S Jolliff Facility[facility] Start: 02-13-2024 End: 02-13-2024 Orders Only Mey Loya CUT OFF MACHINE OPERATOR - BUS OPERATOR Work Phone: [facility] Endovascular Neurology Comment on above: Ischemic cerebrovasc ular accident (CVA) (HCC) (Primary Dx); Bilateral carotid artery stenosis Start: 02-07-2024 End: 02-07-2024 ambulatory Mireya Garcia Facility[facility] Start: 02-06-2024 End: 03-04-2024 Telephone encounter Oziel Culp MD Work Phone: [facility] Clinical Communication Start: 02-06-2024 End: 02-06-2024 Subsequent hospital visit by physician Oziel Culp MD Work Phone: [facility] [address] Comment on above: Arrived Start: 02-06-2024 End: 02-06-2024 ambulatory [facility] Start: 02-06-2024 End: 02-06-2024 ambulatory Radha S Bill Facility:[facility] Start: 02-05-2024 End: 02-05-2024 ambulatory [facility] Start: 02-03-2024 End: 02-03-2024 ambulatory Rito Lundberg Facility:[facility] Start: 01-21-2024 End: 01-22-2024 ambulatory [facility] Start: 01-21-2024 End: 01-22-2024 Evaluation and management of inpatient Eduin Umaña Facility:[facility] Start: 01-20-2024 End: 01-20-2024 ambulatory Radha S Joharrison Facility:[facility] Start: 01-16-2024 End: 01-16-2024 Orders Only Mey Loya CUT OFF MACHINE OPERATOR - BUS OPERATOR Work Phone: [facility] Neurology Comment on above: Chronic kidney disea se, unspecified CKD stage (Primary Dx) Start: 01-10-2024 End: 01-10-2024 ambulatory Radha S Jolliff Facility:[facility] Start: 01-06-2024 End: 01-06-2024 Office outpatient visit 25 minutes Oziel Culp MD Work Phone: [facility]ovascular Neurology Comment on above: Bilateral carotid ar christine stenosis (Primary Dx); Ischemic cerebrovascular accident (CVA) (HCC) Start: 01-06-2024 End: 01-06-2024 ambulatory [facility] Start: 01-01-2024 ambulatory [facility] Start: 01-01-2024 End: 01-01-2024 ambulatory Oren Jackson Roof Facility:[facility] Start: 12-26-2023 End: 12-26-2023 ambulatory Radha Khan Facility[facility] Start: 10-03-2023 End: 10-05-2023 Evaluation and management of inpatient Joe Rocha MD Work Phone: [facility] Cardiac Post Intervention Progressive [facility] PCU 4W Comment on above: Cerebrovascular acci dent (CVA), unspecified mechanism (HCC) (Primary Dx) Start: 10-01-2023 End: 10-03-2023 Evaluation and management of inpatient CHITO BUENROSTRO CUT OFF MACHINE OPERATOR-BUS OPERATOR [facility] Start: 08-05-2023 End: 08-05-[address] Radha Khan Work Phone: [facility] Work Phone: Start: 08-05-2023 End: 08-05-[address] Radha Khan Work Phone: [facility]-Laboratory Work Phone: Start: 07-17-2023 End: 07-17-[address] Radha Khan Work Phone: [facility] Vascular Surgery Work Phone: Start: 07-03-2023 End: 07-03-[address] Radha Khan Work Phone: [facility] Work Phone: Start: 06-06-2023 End: 06-06-[address] Radha Khan Work Phone: [facility] Work Phone: Start: 06-06-2023 End: 06-06-[address] Radha Khan Work Phone: [facility] Work Phone: Start: 05-21-2023 End: 05-21-[address] Radha Khan Work Phone: [facility] Work Phone: Start: 05-20-2023 End: 05-20-[address] Radha Khan Work Phone: [facility] Endocrinology Work Phone: Start: 05-01-2023 Non-patient / Non-visit Dr. Armen Khan Work Phone: [facility] Start: 05-01-2023 End: 05-01-[address] Radha Khan Work Phone: [facility] Work Phone: Start: 05-01-2023 End: 05-01-[address] Radha Khan Work Phone: [facility]-Cardiovascula r Services Work Phone: Start: 04-25-2023 End: 04-25-[address] Radha Khan Work Phone: [facility] Work Phone: Start: 04-25-2023 End: 04-25-[address] Radha Khan Work Phone: [facility]-Laboratory Work Phone: Start: 04-25-2023 End: 04-25-[address] Radha Khan Work Phone: [facility] Work Phone: Start: 03-15-2023 Non-patient / Non-visit Dr. Armen Khan Work Phone: [facility] Start: 03-15-2023 End: 03-15-[address] Radha Khan Work Phone: [facility] Work Phone: Start: 03-15-2023 End: 03-15-[address] Radha Khan Work Phone: [facility], [facility] Work Phone: Start: 03-12-2023 End: 03-12-[address] Radha Khan Work Phone: [facility] Neurology Work Phone: Start: 02-28-2023 End: 02-28-[address] Radha Khan Work Phone: [facility] Work Phone: Start: 02-28-2023 End: 02-28-[address] Radha Khan Work Phone: [facility]-Laboratory, Specimen Work Phone: Start: 02-28-2023 End: 02-28-[address] Radha Khan Work Phone: [facility] Work Phone: Start: 02-27-2023 End: 02-27-[address] Radha Khan Work Phone: [facility] Work Phone: Start: 02-26-2023 End: 02-26-[address] Radha Khan Work Phone: [facility] Work Phone: Start: 02-26-2023 End: 02-26-[address] Radha Khan Work Phone: [facility]-Laboratory, [place] Work Phone: Start: 02-18-2023 End: 02-18-2023 Admission to same day surgery center Dr[facility] Radha Khan [facility] Start: 02-18-2023 End: 02-18-[address] Radha Khan Work Phone: [facility] Work Phone: Start: 02-04-2023 End: 02-04-[address] Radha Khan Work Phone: [facility] Work Phone: Start: 01-15-2023 End: 01-15-[address] Radha Khan Work Phone: [facility] Work Phone: Start: 01-15-2023 End: 01-15-[address] Radha Khan Work Phone: [facility] [place] Work Phone: Start: 01-07-2023 End: 01-07-[address] Radha Khan Work Phone: [facility] Work Phone: Start: 01-07-2023 End: 01-07-[address] Radha Khan Work Phone: [facility], [facility] Work Phone: Start: 01-01-2023 End: 01-01-[address] Radha Khan Work Phone: [facility] Work Phone: Start: 01-01-2023 End: 01-01-[address] Radha Khan Work Phone: [facility]-Laboratory, Specimen Work Phone: Start: 12-31-2022 End: 12-31-[address] Radha Khan Work Phone: [facility] Work Phone: Start: 12-10-2022 End: 12-10-[address] Radha Khan Work Phone: [facility] Work Phone: Start: 11-09-2022 End: 11-09-[address] Radha Khan Work Phone: [facility] Work Phone: Start: 11-09-2022 End: 11-09-[address] Radha Khan Work Phone: [facility] Work Phone: Start: 11-07-2022 End: 11-07-[address] Radha Khan Work Phone: [facility] Work Phone: Start: 11-07-2022 End: 11-07-[address] Radha Khan Work Phone: [facility] Work Phone: Start: 10-31-2022 End: 10-31-[address] Radha Khan Work Phone: [facility] Work Phone: Start: 10-31-2022 End: 10-31-[address] Radha Khna Work Phone: [facility] Start: 10-12-2022 End: 10-12-[address] Radha Khan Work Phone: [facility] Work Phone: Start: 10-12-2022 End: 10-12-[address] Radha Khan Work Phone: [facility] Work Phone: Start: 10-08-2022 End: 10-08-[address] Radha Khan Work Phone: [facility] Work Phone: Start: 10-01-2022 Non-patient / Non-visit Dr. Armen Khan Work Phone: [facility] Start: 10-01-2022 End: 10-01-[address] Radha Khan Work Phone: [facility] Work Phone: Start: 10-01-2022 End: 10-01-[address] Radha Khan Work Phone: [facility]-Cardiovascula r Services Work Phone: Start: 09-03-2022 End: 09-03-[address] Radha Khan Work Phone: [facility] Endocrinology Work Phone: Start: 08-03-2022 Non-patient / Non-visit Dr. Armen Khan Work Phone: [facility] Start: 08-02-2022 Non-patient / Non-visit Dr. Armen Khan Work Phone: [facility] Start: 08-01-2022 End: 08-03-2022 Evaluation and management of inpatient Dr. Radha Khan Work Phone: [facility]-Progressive Care Unit Start: 08-01-2022 End: 08-03-[address] Radha Khan Work Phone: [facility] Work Phone: Start: 07-27-2022 End: 07-27-[address] Radha Khan Work Phone: [facility] Work Phone: Start: 07-27-2022 End: 07-27-[address] Radha Khan Work Phone: [facility] Start: 06-26-2022 End: 06-26-[address] Radha Khan Work Phone: [facility] Work Phone: Start: 06-26-2022 End: 06-26-[address] Radha Khan Work Phone: [facility] Start: 06-18-2022 End: 06-18-[address] Radha Khan Work Phone: [facility] Start: 06-12-2022 End: 06-12-[address] Radha Khan [facility] Start: 05-21-2022 End: 05-21-[address] Radha Khan Work Phone: [facility] Start: 05-18-2022 End: 05-18-[address] Radha Khan Work Phone: [facility] Start: 05-09-2022 End: 05-09-2022 Admission to same day surgery center Dr. Radha Khan Work Phone: [facility]-Desk Clerks Supervisor/Special Procedures Start: 05-09-2022 End: 05-09-[address] Radha Khan Work Phone: [facility] Work Phone: Start: 05-03-[address] Barney Khan Work Phone: [facility] Start: 05-03-2022 End: 05-03-[address] Radha Khan Work Phone: [facility] Start: 04-27-2022 End: 04-27-[address] Radha Khan Work Phone: [facility] Work Phone: Start: 04-27-2022 End: 04-27-[address] Radha Khan Work Phone: [facility] Start: 04-17-2022 End: 04-17-[address] Radha Khan Work Phone: [facility] Work Phone: Start: 04-17-2022 End: 04-17-[address] Radha Khan Work Phone: [facility] Start: 03-12-2022 End: 03-12-[address] Radha Khan Work Phone: [facility] Endocrinology Start: 02-19-2022 End: 02-19-[address] Radha Khan Work Phone: [facility] Heart [facility] Start: 02-17-2022 Non-patient / Non-visit Dr. Armen Khan Work Phone: [facility] Start: 02-16-2022 End: 02-16-[address] Radha Khan Work Phone: [facility] Work Phone: Start: 02-16-2022 End: 02-16-[address] Radha Khan Work Phone: [facility]-Pulmonary Services/Neurology Start: 02-12-2022 End: 02-12-[address] Radha Khan Work Phone: [facility]-Pulmonary Medicine [facility] Start: 01-15-2022 End: 01-15-[address] Radha Khan Work Phone: [facility] Endocrinology Start: 11-13-2021 End: 11-13-[address] Radha Khan Work Phone: [facility] Heart [facility] Start: 09-19-2021 End: 09-19-[address] Radha Khan Work Phone: [facility]-Pulmonary Services/Neurology Start: 09-07-2021 End: 09-07-[address] Radha Khan Work Phone: [facility] Start: 09-04-2021 End: 09-04-2021 Emergency department patient visit Dr. Radha Khan Work Phone: [facility]-Emergency Department Start: 08-14-2021 Non-patient / Non-visit Dr. Armen Khan Work Phone: [facility] Start: 08-14-2021 End: 08-14-[address] Radha Khan Work Phone: [facility]-Cardiovascula r Services Start: 08-10-2021 End: 08-10-[address] Radha Khan Work Phone: [facility] Endocrinology Start: 08-09-2021 End: 08-09-[address] Radha Khan Work Phone: [facility]-Sleep Lab Start: 07-16-2021 End: 07-16-2021 Emergency department patient visit Dr. Radha Khan Work Phone: [facility]-Emergency Department Start: 07-13-2021 End: 07-13-[address] Radha Khan Work Phone: [facility]-Pulmonary Medicine [facility] Start: 07-12-2021 End: 07-12-[address] Radha Khan Work Phone: [facility]-Laboratory Start: 07-12-2021 End: 07-12-[address] Radha Khan Work Phone: [facility] Heart Group Start: 06-29-2021 End: 06-29-[address] Radha Khan Work Phone: [facility] Endocrinology Start: 06-20-2021 Non-patient / Non-visit Dr. Armen Khan Work Phone: [facility] Inpatient Physicians Start: 06-19-2021 Non-patient / Non-visit Dr. Armen Khan Work Phone: [facility] Start: 06-19-2021 Non-patient / Non-visit Dr. Armen Khan Work Phone: [facility] Inpatient Physicians Start: 06-19-2021 End: 06-20-2021 Evaluation and management of inpatient Dr. Radha Khan Work Phone: [facility]-Progressive Care Unit Start: 06-15-2021 Non-patient / Non-visit Dr. Armen Khan Work Phone: [facility] Start: 06-15-2021 End: 06-15-[address] Radha Khan Work Phone: [facility]-Pulmonary Services/Neurology Start: 06-02-2021 End: 06-02-[address] Radha Khan Work Phone: [facility]-Pulmonary Services/Neurology Start: 06-02-2021 Non-patient / Non-visit Dr. Armen Khan Work Phone: [facility] Start: 06-01-2021 End: 06-01-[address] Radha Khan Work Phone: [facility]-Laboratory, [facility] Start: 06-01-2021 End: 06-01-[address] Radha Khan Work Phone: [facility] Endocrinology Start: 05-30-2021 End: 05-30-[address] Radha Khan Work Phone: [facility] [facility], [facility] Start: 12-27-2010 End: 12-27-2010 Patient encounter procedure Karlos Epstein Christinaneema Work Phone: [facility] Start: 12-27-2010 Results Only Karlos Lucian Xavier ronyar Work Phone: [facility] Procedures Date Procedure Procedure Detail Performing Clinician Start: 12-09-2024 Blood count smear mc rscp w/mnl difrntl wbc count Dr. Radha Khna MD Work Phone: Start: 12-09-2024 Mean corpuscular hem oglobin concentration determination Dr. Radha Khan MD Work Phone: Start: 12-09-2024 Nucleated red blood cell count procedure Dr. Radha Khan MD Work Phone: Start: 12-09-2024 Platelet mean volume determination Dr. Radha Khan MD Work Phone: Start: 12-09-2024 Total iron binding c apacity measurement Dr. Radha Khan MD Work Phone: Start: 11-28-2024 Blood count smear mc rscp w/mnl difrntl wbc count Dr. Radha Khan MD Work Phone: Start: 11-28-[address] Radha Khan MD Work Phone: Start: 11-28-2024 Mean corpuscular hem oglobin concentration determination Dr. Radha Khan MD Work Phone: Start: 11-28-2024 Nucleated red blood cell count procedure Dr. Radha Khan MD Work Phone: Start: 11-28-2024 Platelet mean volume determination Dr. Radha Khan MD Work Phone: Start: 11-26-[address] Armen Khan MD Work Phone: Start: 11-26-[address] Radha tran MD Work Phone: Start: 11-26-[address] Radha tran MD Work Phone: Start: 11-26-2024 Dr. Radha cagle MD Work Phone: Start: 11-26-2024 Venous oxygen satura tion measurement Dr. Radha Khan MD Work Phone: Start: 11-26-2024 Urine microscopy: red cells Dr. Radha Khan MD Work Phone: Start: 11-26-2024 Urnls dip stick/tabl et reagent auto microscopy Dr. Radha Khan MD Work Phone: Start: 11-26-2024 Blood count smear mc rscp w/mnl difrntl wbc count Dr. Radha Khan MD Work Phone: Start: 11-26-[address] Radha Khan MD Work Phone: Start: 11-26-2024 Mean corpuscular hem oglobin concentration determination Dr. Radha Khan MD Work Phone: Start: 11-26-2024 Nucleated red blood cell count procedure Dr. Radha Khan MD Work Phone: Start: 11-26-2024 Platelet mean volume determination Dr. Radha Khan MD Work Phone: Start: 11-26-2024 CT cervical spine wi thout contrast Dr. Radha Khan MD Work Phone: Start: 11-26-2024 CT of head without contrast Dr. Radha Khan MD Work Phone: Start: 11-26-2024 Plain radiography of pelvis Dr. Radha Khan MD Work Phone: Start: 11-26-2024 X-ray of chest, PA a nd lateral views Dr. Radha Khan MD Work Phone: Start: 11-23-2024 Hepatic function panel Rosalino Padron MD Work Phone: Start: 11-03-2024 Blood count smear mc rscp w/mnl difrntl wbc count Dr. Radha Khan MD Work Phone: Start: 11-03-[address] reticulocyt e fraction Dr. Radha Khan MD Work Phone: Start: 11-03-2024 Mean corpuscular hem oglobin concentration determination Dr. Radha Khan MD Work Phone: Start: 11-03-2024 Nucleated red blood cell count procedure Dr. Radha Khan MD Work Phone: Start: 11-03-2024 Platelet mean volume determination Dr. Radha Khan MD Work Phone: Start: 11-03-2024 Total iron binding c apacity measurement Dr. Radha Khan MD Work Phone: Start: 10-13-2024 End: 10-13-2024 Blood count smear mcrscp w/mnl difrntl wbc count Dr. Radha Khan MD Work Phone: Start: 10-13-2024 Mean corpuscular hem oglobin concentration determination Dr. Radha Khan MD Work Phone: Start: 10-13-2024 Nucleated red blood cell count procedure Dr. Radha Khan MD Work Phone: Start: 10-13-2024 Platelet mean volume determination Dr. Radha Khan MD Work Phone: Start: 10-13-2024 Total cholesterol:HD L ratio measurement Dr. Radha Khan MD Work Phone: Start: 09-27-2024 MRI of brain without contrast Dr. Radha Khan MD Work Phone: Start: 09-27-2024 Blood count smear mc rscp w/mnl difrntl wbc count Dr. Radha Khan MD Work Phone: Start: 09-27-[address] Radha Khan MD Work Phone: Start: 09-27-2024 Mean corpuscular hem oglobin concentration determination Dr. Radha Khan MD Work Phone: Start: 09-27-2024 Nucleated red blood cell count procedure Dr. Radha Khan MD Work Phone: Start: 09-27-2024 Platelet mean volume determination Dr. Radha Khan MD Work Phone: Start: 09-27-2024 Total cholesterol:HD L ratio measurement Dr. Radha Khan MD Work Phone: Start: 09-26-2024 CT angiography of he ad and neck Dr. Radha Khan MD Work Phone: Start: 09-26-2024 Calculation of international normalized ratio Dr. 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 Radha [...] Work Phone: Start: 04-15-2024 Anion gap measurement D abhinav Khan MD Work Phone: Start: 04-15-2024 Blood [...] MD Work Phone: Start: 04-12-2024 Dr. Radha cagle MD Work Phone: Start: 04-12-2024 Plain chest [...] End: 10-04-2023 Basic metabolic panel calcium total Harikrishna C Ponnam MD Work Phone: Start: 10-04-2023 Ecg routine [...] Author Start: 10-03-2028 Lipid panel Lipid Panel [facility] Start: 09-23-2025 Creatinine measurement Creatinine Level [facility] Start: 09-23-2025 Potassium measurement Potassium Level [facility] Start: 07-23-2025 Echocardiography Echocardiogram [facility] Start: 05-06-2025 Creatinine measurement Creatinine Level [facility] Start: 05-06-2025 Diabetes: Estimated Glomerular Filtration Rate for Kidney Health Diabetes: Estimated Glomerular Filtration Rate for Kidney Health [facility] Start: 05-06-2025 Potassium measurement Potassium Level [facility] Start: 03-19-2025 End: 03-19-2025 Patient encounter procedure 03/19/2025 2:30 PM EST Office Visit [facility] [address] [facility] [address] [place] [address] [place] [address] [place] [address] [facility] Start: 01-18-2025 End: 01-18-2025 Patient encounter procedure 01/18/2025 10:00 AM EDT Office Visit [facility] Endovascular Neurology [address] [place] [id number] Oziel Culp MD [address] [place] [address] [facility] Neurology Start: 01-15-2025 End: 01-15-2025 Patient encounter procedure [facility] Start: 12-09-2024 End: 12-09-2024 Patient encounter procedure [facility] Start: 12-04-2024 End: 12-04-2024 Patient encounter procedure 12/04/2024 1:00 PM EDT Office Visit [facility] [address] [address] [place] [address] [place] [address] [facility] Start: 11-30-2024 Influenza vaccination Influenza Vaccine (#1) [facility] Start: 11-28-2024 Patient discharge [facility] Start: 11-27-2024 [facility] Start: 11-26-2024 Blood culture [facility] Start: 11-26-2024 Urine culture [facility] Start: 11-26-2024 Following clinical pathway protocol [facility] Start: 11-26-2024 Assessment of risk of venous thromboembolism [facility] Start: 11-26-2024 Care regimes management [facility] Start: 11-26-2024 Catheterization of vein [facility] Start: 11-26-2024 End: 11-26-2024 Consultation for treatment [facility] Start: 11-26-2024 Inhalation therapy procedure [facility] Start: 11-26-2024 Insertion of catheter into peripheral vein [facility] Start: 11-26-2024 Measuring intake and output [facility] Start: 11-26-2024 Notification of physician [facility] Start: 11-26-2024 Oxygen therapy [facility] Start: 11-26-2024 Patient referral to dietitian [facility] Start: 11-26-2024 Providing care according to standard [facility] Start: 11-26-2024 Provision of activity privileges [facility] Start: 11-26-2024 Referral to occupational therapist [facility] Start: 11-26-2024 Referral to service [facility] Start: 11-26-2024 End: 11-26-2024 [facility] Start: 11-26-2024 Hospital admission, emergency, from emergency room, medical nature [facility] Start: 11-26-2024 Verification routine [facility] Start: 11-26-2024 Admission procedure [facility] Start: 11-26-2024 End: 11-26-2024 [facility] Start: 11-26-2024 Patient referral to [facility] Start: 11-13-2024 End: 11-13-2025 DLCO / Diffusion Capacity DLCO / Diffusion Capacity PFT Routine ILD (interstitial lung disease) (Multi) Expected: 11/13/2024 (Approximate), Expires: 11/13/2025 [facility] Work Phone: Comment on above: Expected: 11/13/2024 (Approximate), Expi res: 11/13/2025 Start: 11-13-2024 End: 11-13-2025 Pulmonary Stress Test (6 Min. Walk) Pulmonary Stress Test (6 Min. Walk) PFT Routine ILD (interstitial lung disease) (Multi) Expected: 11/13/2024 (Approximate), Expires: 11/13/2025 [facility] Work Phone: Comment on above: Expected: 11/13/2024 (Approximate), Expi res: 11/13/2025 Start: 11-13-2024 End: 11-13-2025 Spirometry Pre/Post Bronchodilator Spirometry Pre/Post Bronchodilator PFT Routine ILD (interstitial lung disease) (Multi) Expected: 11/13/2024 (Approximate), Expires: 11/13/2025 [facility] Service Area Work Phone: Comment on above: Expected: 11/13/2024 (Approximate), Expi res: 11/13/2025 Start: 11-03-2024 [facility] Start: 10-04-2024 Creatinine measurement Creatinine Level [facility] Start: 10-04-2024 Diabetes: Estimated Glomerular Filtration Rate for Kidney Health Diabetes: Estimated Glomerular Filtration Rate for Kidney Health [facility] Start: 10-04-2024 Potassium measurement Potassium Level [facility] Start: 10-03-2024 Diabetes mellitus screening Diabetes Screening [facility] Start: 10-03-2024 Hemoglobin A1c measurement Diabetes: Hemoglobin A1C [facility] Start: 10-03-2024 Lipid panel Lipid Panel [facility] Start: 09-28-2024 Patient discharge [facility] Start: 09-27-2024 [facility] Start: 09-27-2024 Care planning and problem solving actions [facility] Start: 09-26-2024 Application of intermittent pneumatic compression device [facility] Start: 09-26-2024 Admission procedure [facility] Start: 09-26-2024 Care planning and problem solving actions [facility] Start: 09-26-2024 Vital signs measurements [facility] Start: 09-26-2024 Aspiration precautions [facility] Start: 09-26-2024 Cardiac monitoring [facility] Start: 09-26-2024 Catheterization of vein [facility] Start: 09-26-2024 Consultation [facility] Start: 09-26-2024 Continuous pulse oximetry [facility] Start: 09-26-2024 Elevation of head of bed [facility] Start: 09-26-2024 Exercises [facility] Start: 09-26-2024 Oxygen therapy [facility] Start: 09-26-2024 Patient referral to dietitian [facility] Start: 09-26-2024 Referral to occupational therapist [facility] Start: 09-26-2024 Referral to service [facility] Start: 09-26-2024 Speech therapy assessment [facility] Start: 09-26-2024 Telemedicine consultation with patient [facility] Start: 09-26-2024 Tobacco use cessation education [facility] Start: 09-26-2024 End: 09-26-2024 [facility] Start: 09-26-2024 Assessment of risk of venous thromboembolism [facility] Start: 09-26-2024 Care regimes management [facility] Start: 09-26-2024 Insertion of catheter into peripheral vein [facility] Start: 09-26-2024 Measuring intake and output [facility] Start: 09-26-2024 End: 09-26-2024 Notification of physician [facility] Start: 09-26-2024 Providing care according to standard [facility] Start: 09-26-2024 Provision of activity privileges [facility] Start: 09-26-2024 Following clinical pathway protocol [facility] Start: 09-26-2024 Admission procedure [facility] Start: 09-26-2024 [facility] Start: 09-26-2024 CT angiography of head and neck STROKE CTA Head AND Neck W/Con [facility] Start: 09-26-2024 CTA Head vessels and Neck vessels W contrast IV [facility] Start: 09-26-2024 Hospital admission, emergency, from emergency room, medical nature [facility] Start: 09-26-2024 Oxygen therapy [facility] Start: 09-26-2024 End: 09-26-2024 [facility] Start: 09-26-2024 Patient referral to dietitian [facility] Start: 08-28-2024 End: 08-28-2025 DLCO / Diffusion Capacity DLCO / Diffusion Capacity PFT Routine ILD (interstitial lung disease) (Multi) Chronic respiratory failure with hypoxia Expected: 08/28/2024 (Approximate), Expires: 08/28/2025 [facility] Work Phone: Comment on above: Expected: 08/28/2024 (Approximate), Expi res: 08/28/2025 Start: 08-28-2024 End: 08-28-2025 Pulmonary Stress Test (6 Min. Walk) Pulmonary Stress Test (6 Min. Walk) PFT Routine ILD (interstitial lung disease) (Multi) Chronic respiratory failure with hypoxia Expected: 08/28/2024 (Approximate), Expires: 08/28/2025 [facility] Work Phone: Comment on above: Expected: 08/28/2024 (Approximate), Expi res: 08/28/2025 Start: 08-28-2024 End: 08-28-2025 Spirometry Pre/Post Bronchodilator Spirometry Pre/Post Bronchodilator PFT Routine ILD (interstitial lung disease) (Multi) Chronic respiratory failure with hypoxia Expected: 08/28/2024 (Approximate), Expires: 08/28/2025 [facility] Service Area Work Phone: Comment on above: Expected: 08/28/2024 (Approximate), Expi res: 08/28/2025 Start: 08-28-2024 End: 08-28-2024 Patient encounter procedure [facility] Start: 08-12-2024 X-ray of chest, PA and lateral views [facility] Start: 08-07-2024 End: 08-07-2025 DLCO / Diffusion Capacity DLCO / Diffusion Capacity PFT Routine ILD (interstitial lung disease) (Multi) Expected: 08/07/2024 (Approximate), Expires: 08/07/2025 [facility] Work Phone: Comment on above: Expected: 08/07/2024 (Approximate), Expi res: 08/07/2025 Start: 08-07-2024 End: 08-07-2025 Pulmonary Stress Test (6 Min. Walk) Pulmonary Stress Test (6 Min. Walk) PFT Routine ILD (interstitial lung disease) (Multi) Expected: 08/07/2024 (Approximate), Expires: 08/07/2025 [facility] Work Phone: Comment on above: Expected: 08/07/2024 (Approximate), Expi res: 08/07/2025 Start: 08-07-2024 End: 08-07-2025 Spirometry Pre/Post Bronchodilator Spirometry Pre/Post Bronchodilator PFT Routine ILD (interstitial lung disease) (Multi) Expected: 08/07/2024 (Approximate), Expires: 08/07/2025 [facility] Service Area Work Phone: Comment on above: Expected: 08/07/2024 (Approximate), Expi res: 08/07/2025 Start: 07-24-2024 End: 07-24-2024 Patient encounter procedure [facility] Start: 07-23-2024 End: 07-23-2024 Patient encounter procedure 07/23/2024 2:00 PM EDT Appointment [facility] [address] [facility] [address] [place] [address] [facility] Start: 07-19-2024 DTaP/Tdap/Td Vaccines (2 - Td or Tdap) DTaP/Tdap/Td Vaccines (2 - Td or Tdap) [facility] Start: 07-13-2024 End: 07-13-2024 Patient encounter procedure 07/13/2024 2:00 PM EDT Appointment [facility] [address] [facility] [address] [place] [address] [facility] Start: 06-26-2024 End: 06-26-2025 Aldolase [Enzymatic activity/volume] in Serum or Plasma Aldolase Lab Routine ILD (interstitial lung disease) (Multi) Expected: 06/26/2024 (Approximate), Expires: 06/26/2025 [facility] Work Phone: Comment on above: Expected: 06/26/2024 (Approximate), Expi res: 06/26/2025 Start: 06-26-2024 End: 06-26-2025 C reactive protein [Mass/volume] in Serum or Plasma C-Reactive Protein Lab Routine ILD (interstitial lung disease) (Multi) Expected: 06/26/2024 (Approximate), Expires: 06/26/2025 [facility] Work Phone: Comment on above: Expected: 06/26/2024 (Approximate), Expi res: 06/26/2025 Start: 06-26-2024 End: 03-28-2026 Complete Pulmonary Function Test (Spirometry/DLCO/Lung Volumes) Complete Pulmonary Function Test (Spirometry/DLCO/Lung Volumes) PFT Routine ILD (interstitial lung disease) (Multi) Expected: 06/26/2024 (Approximate), Expires: 06/26/2025 [facility] Work Phone: Comment on above: Expected: 06/26/2024 (Approximate), Expi res: 06/26/2025 Start: 06-26-2024 End: 06-26-2025 Creatine kinase [Enzymatic activity/volume] in Serum or Plasma Creatine Kinase Lab Routine ILD (interstitial lung disease) (Multi) Expected: 06/26/2024 (Approximate), Expires: 06/26/2025 [facility] Work Phone: Comment on above: Expected: 06/26/2024 [...] disease) (Multi) Expected: 06/26/2024 (Approximate), Expires: 06/26/2025 [facility] Work Phone: Comment on above: Expected: 06/26/2024 (Approximate), Expi res: 06/26/2025 Start: 06-26-2024 End: 06-26-2025 Erythrocyte sedimentation rate Sedimentation Rate Lab Routine ILD (interstitial lung disease) (Multi) Expected: 06/26/2024 (Approximate), Expires: 06/26/2025 [facility] Work Phone: Comment on above: Expected: 06/26/2024 (Approximate), Expi res: 06/26/2025 Start: 06-26-2024 End: 06-26-2025 Extended Myositis Panel Extended Myositis Panel Lab Routine ILD (interstitial lung disease) (Multi) Expected: 06/26/2024 (Approximate), Expires: 06/26/2025 [facility] Work Phone: Comment on above: Expected: 06/26/2024 (Approximate), Expi res: 06/26/2025 Start: 06-26-2024 End: 06-26-2025 Hypersensitivity Pneumonitis Panel Hypersensitivity Pneumonitis Panel Lab Routine ILD (interstitial lung disease) (Multi) Expected: 06/26/2024 (Approximate), Expires: 06/26/2025 [facility] Work Phone: Comment on above: Expected: 06/26/2024 (Approximate), Expi res: 06/26/2025 Start: 06-26-2024 End: 06-26-2025 MPO, PR3 with Reflex to ANCA MPO, PR3 with Reflex to ANCA Lab Routine ILD (interstitial lung disease) (Multi) Expected: 06/26/2024 (Approximate), Expires: 06/26/2025 [facility] Work Phone: Comment on above: Expected: 06/26/2024 (Approximate), Expi res: 06/26/2025 Start: 06-26-2024 End: 06-26-2025 Nuclear Ab [Presence] in Serum by Hep2 substrate RICARDO with Reflex to NEELA Lab Routine ILD (interstitial lung disease) (Multi) Expected: 06/26/2024 (Approximate), Expires: 06/26/2025 [facility] Work Phone: Comment on above: Expected: 06/26/2024 (Approximate), Expi res: 06/26/2025 Start: 06-26-2024 End: 06-26-2025 Pulmonary Stress Test (6 Min. Walk) Pulmonary Stress Test (6 Min. Walk) PFT Routine ILD (interstitial lung disease) (Multi) Expected: 06/26/2024 (Approximate), Expires: 06/26/2025 [facility] Work Phone: Comment on above: Expected: 06/26/2024 (Approximate), Expi res: 06/26/2025 Start: 06-26-2024 End: 06-26-2025 Rheumatoid factor [Units/volume] in Serum by Nephelometry Rheumatoid Factor Lab Routine ILD (interstitial lung disease) (Multi) Expected: 06/26/2024 (Approximate), Expires: 06/26/2025 [facility] Work Phone: Comment on above: Expected: 06/26/2024 (Approximate), Expi res: 06/26/2025 Start: 06-26-2024 End: 06-26-2026 US Heart Transthoracic Transthoracic Echo (TTE) Complete Echocardiography Routine Pulmonary hypertension (Multi) Expected: 06/26/2024 (Approximate), Expires: 06/26/2026 [facility] Work Phone: Comment on above: Expected: 06/26/2024 (Approximate), Expi res: 06/26/2026 Start: 05-06-2024 End: 05-06-2024 Patient encounter procedure 05/06/2024 10:00 AM EST Appointment [facility] [address] [facility] [place] [address] [facility] Start: 04-27-2024 End: 04-27-2024 Patient encounter procedure 04/27/2024 3:00 PM EST Office Visit [facility] [place] [address] [place] [phone] Suzy Jauregui MD [address] [place] [address] [facility] [place] Start: 04-25-2024 Patient discharge [facility] Start: 04-24-2024 Dual pressure spontaneous ventilation support [facility] Start: 04-24-2024 Aspiration precautions [facility] Start: 04-24-2024 Assessment of risk of venous thromboembolism [facility] Start: 04-24-2024 Cardiac monitoring [facility] Start: 04-24-2024 Care regimes management [facility] Start: 04-24-2024 Catheterization of vein [facility] Start: 04-24-2024 Consultation [facility] Start: 04-24-2024 Continuous pulse oximetry [facility] Start: 04-24-2024 Elevation of head of bed [facility] Start: 04-24-2024 Exercises [facility] Start: 04-24-2024 Fall prevention [facility] Start: 04-24-2024 Inhalation therapy procedure [facility] Start: 04-24-2024 Insertion of catheter into peripheral vein [facility] Start: 04-24-2024 Introduction of urinary catheter [facility] Start: 04-24-2024 Measuring intake and output [facility] Start: 04-24-2024 Notification of physician [facility] Start: 04-24-2024 Oxygen therapy [facility] Start: 04-24-2024 Patient referral to [facility] Start: 04-24-2024 Providing care according to standard [facility] Start: 04-24-2024 Provision of activity privileges [facility] Start: 04-24-2024 Referral to occupational therapist [facility] Start: 04-24-2024 Referral to service [facility] Start: 04-24-2024 Speech therapy assessment [facility] Start: 04-24-2024 Telemedicine consultation with patient [facility] Start: 04-24-2024 Tobacco use cessation education [facility] Start: 04-24-2024 End: 04-24-2024 [facility] Start: 04-24-2024 Following clinical pathway protocol [facility] Start: 04-24-2024 Admission procedure [facility] Start: 04-24-2024 [facility] Start: 04-24-2024 [facility] Start: 04-15-2024 Referral to service [facility] Start: 04-15-2024 Patient discharge [facility] Start: 04-15-2024 Fluid restriction [facility] Start: 04-14-2024 [facility] Start: 04-13-2024 Consultation [facility] Start: 04-13-2024 [facility] Start: 04-13-2024 Elevation of head of bed [facility] Start: 04-13-2024 Patient education [facility] Start: 04-13-2024 [facility] Start: 04-12-2024 Following clinical pathway protocol [facility] Start: 04-12-2024 Ambulation without limitation [facility] Start: 04-12-2024 Assessment of risk of venous thromboembolism [facility] Start: 04-12-2024 Care regimes management [facility] Start: 04-12-2024 Catheterization of vein [facility] Start: 04-12-2024 Elevation of affected extremity [facility] Start: 04-12-2024 Inhalation therapy procedure [facility] Start: 04-12-2024 Insertion of catheter into peripheral vein [facility] Start: 04-12-2024 Measuring intake and output [facility] Start: 04-12-2024 Notification of physician [facility] Start: 04-12-2024 Oxygen therapy [facility] Start: 04-12-2024 Patient education [facility] Start: 04-12-2024 Providing care according to standard [facility] Start: 04-12-2024 End: 04-12-2024 [facility] Start: 04-12-2024 Admission procedure [facility] Start: 04-12-2024 Patient referral to dietitian [facility] Start: 02-13-2024 End: 02-12-2025 RFA Cerebral arteries Bilateral Views W contrast IA IR angiogram cerebral with possible intervention Imaging Routine Ischemic cerebrovascular accident (CVA) (HCC) Bilateral carotid artery stenosis Expected: 02/13/2024, Expires: 02/12/2025 [facility] Work Phone: Comment on above: Expected: 02/13/2024, Expires: Start: 01-22-2024 Subsequent hospital visit by physician 01/22/2024 10:45 AM EDT Hospital Encounter [facility] [address] [place] [address] Oziel Culp MD [address] [place] [address] [facility] [address] Start: 01-20-2024 End: 01-05-2025 CTA Head vessels and Neck vessels WO and W contrast IV CTA head neck angio w and wo IV contrast Imaging Routine Bilateral carotid artery stenosis Ischemic cerebrovascular accident (CVA) (HCC) Expected: 01/20/2024, Expires: 01/05/2025 [employer] [facility] Work Phone: Comment on above: Expected: 01/20/2024, Expires: Start: 01-16-2024 End: 01-15-2025 Creatinine [Mass/volume] in Serum or Plasma Creatinine, Serum Lab Routine Chronic kidney disease, unspecified CKD stage Expected: 01/16/2024 (Approximate), Expires: 01/15/2025 [employer] Work Phone: Comment on above: Expected: 01/16/2024 (Approximate), Expi res: 01/15/2025 Start: 12-01-2023 Influenza vaccination Influenza Vaccine (#1) [facility] Start: 2023 RSV Immunization aged 60 or older (1 - 1-dose 60+ series) RSV Immunization aged 60 or older (1 - 1-dose 60+ series) [facility] Start: 2023 RSV Immunization for Adults (1 - Risk 60-74 years 1-dose series) RSV Immunization for Adults (1 - Risk 60-74 years 1-dose series) [facility] Start: 07-03-2023 Patient referral [facility] Work Phone: Start: 02-18-2023 Anesthesia cervical spine & cord nos ANESTH SPINE CORD SURGERY [facility] Start: 02-18-2023 Njx dx/ther agt pvrt facet jt crv/thrc 1 level INJ PARAVERT F JNT C/T 1 [facility] Start: 02-18-2023 Njx dx/ther agt pvrt facet jt crv/thrc 2nd level INJ PARAVERT F JNT C/T 2 [facility] Start: 02-18-2023 Njx dx/ther agt pvrt facet jt crv/thrc 3+ level INJ PARAVERT F JNT C/T 3 [facility] Start: 02-18-2023 Fluoroscopy guided injection of cervical spinal nerve root OR-Steroid Inj/Cer Thor/1st L [facility] Start: 02-18-2023 Injection of facet joint [facility] Start: 02-18-2023 X-ray of cervical spine Cerv Spine 4 or 5 Views [facility] Start: 02-18-2023 Patient discharge [facility] Start: 12-10-2022 Patient referral [facility] Work Phone: Start: 10-08-2022 Patient referral [facility] Work Phone: Start: 08-03-2022 Patient discharge [facility] Start: 08-03-2022 Referral to occupational therapist [facility] Start: 08-03-2022 Referral to service [facility] Start: 08-02-2022 [facility] Start: 08-02-2022 Following clinical pathway protocol [facility] Start: 08-02-2022 Assessment of risk of venous thromboembolism [facility] Start: 08-02-2022 Cardiac monitoring [facility] Start: 08-02-2022 Care regimes management [facility] Start: 08-02-2022 Catheterization of vein [facility] Start: 08-02-2022 Elevation of head of bed [facility] Start: 08-02-2022 Exercises [facility] Start: 08-02-2022 Fall prevention [facility] Start: 08-02-2022 Implementation of planned interventions [facility] Start: 08-02-2022 Inhalation therapy procedure [facility] Start: 08-02-2022 Insertion of catheter into peripheral vein [facility] Start: 08-02-2022 Introduction of urinary catheter [facility] Start: 08-02-2022 Measuring intake and output [facility] Start: 08-02-2022 Notification of physician [facility] Start: 08-02-2022 Oxygen therapy [facility] Start: 08-02-2022 End: 08-02-2022 Patient referral to dietitian [facility] Start: 08-02-2022 Providing care according to standard [facility] Start: 08-02-2022 Provision of activity privileges [facility] Start: 08-02-2022 Referral to occupational therapist [facility] Start: 08-02-2022 Referral to service [facility] Start: 08-02-2022 Speech therapy assessment [facility] Start: 08-02-2022 Tobacco use cessation education [facility] Start: 08-02-2022 [facility] Start: 08-01-2022 Admission procedure [facility] Start: 08-14-2021 Radionuclide imaging of perfusion of myocardium under exercise stress Nuclear Stress Test - Treadmil [facility] Work Phone: Start: 06-20-2021 Patient discharge [facility] Work Phone: Start: 06-19-2021 Following clinical pathway protocol [facility] Work Phone: Start: 06-19-2021 Care regimes management [facility] Work Phone: Start: 06-19-2021 Notification of physician [facility] Work Phone: Start: 06-19-2021 End: 06-19-2021 [facility] Work Phone: Start: 06-19-2021 Admission procedure [facility] Work Phone: Start: 08-05-2020 COVID-19 Vaccine (3 - Moderna risk series) COVID-19 Vaccine (3 - Moderna risk series) [facility] Start: 07-03-2020 PROSTATE CANCER SCREENING DISCUSSION PROSTATE CANCER SCREENING DISCUSSION [facility] Start: 12-01-2019 Influenza vaccination INFLUENZA (#1) [facility] Start: 09-20-2016 Thyroid stimulating hormone measurement TSH Level [facility] Start: 09-09-2016 [object Object] DIABETIC FOOT EXAM [facility] Start: 12-12-2015 HbA1c (Bld) [Mass fraction] HBA1C [facility] Start: 12-07-2015 Pneumococcal vaccination Pneumococcal Vaccine (2 of 2 - PCV) [facility] Start: 12-07-2015 Pneumococcal Vaccine: 50+ Years (2 of 2 - PCV) Pneumococcal Vaccine: 50+ Years (2 of 2 - PCV) [facility] Start: 12-07-2015 Pneumococcal Vaccine: Pediatrics (0 to 5 Years) and At-Risk Patients (6 to 64 Years) (2 of 2 - PCV) Pneumococcal Vaccine: Pediatrics (0 to 5 Years) and At-Risk Patients (6 to 64 Years) (2 of 2 - PCV) [facility] Start: 08-24-2013 Prostate specific antigen measurement PSA Prostate Cancer Screening [facility] Start: 08-24-2013 SHINGRIX VACCINE (1 of 2) SHINGRIX VACCINE (1 of 2) [facility] Start: 08-24-2013 Tuberculosis screening COLORECTAL CANCER SCREENING,SEE MODIFIER [facility] Start: 03-10-2009 MMR Vaccines (1 of 1 - Standard series) MMR Vaccines (1 of 1 - Standard series) [facility] Start: 08-24-1982 Urine microalbumin profile DTAP,TDAP,TD (1 - Tdap) [facility] Start: 08-24-1981 ANNUAL PCP TEAM CHRONIC DISEASE VISIT ANNUAL PCP TEAM CHRONIC DISEASE VISIT [facility] Start: 08-24-1981 BP CONTROLLED (<130/80) BP CONTROLLED (<130/80) [facility] Start: 08-24-1981 Diabetes: Urine Albumin-Creatinine Ratio for Kidney Health Diabetes: Urine Albumin-Creatinine Ratio for Kidney Health [facility] Start: 08-24-1981 Hepatitis B surface antibody level LDL CHOLESTEROL [facility] Start: 08-24-1981 HEPATITIS C SCREENING HEPATITIS C SCREENING [facility] Start: 08-24-1981 Hepatitis C screening Hepatitis C Screening [facility] Start: 08-24-1981 HIV SCREENING HIV SCREENING [facility] Start: 1975 Depression Screening Depression Screening [facility] Start: 08-24-1973 Diabetic foot examination Diabetes: Foot Exam [facility] Start: 08-24-1973 Glaucoma screening Diabetes: Retinopathy Screening [facility] Start: 08-24-1973 Hepatitis B screening URINE ALBUMIN:CREATININE RATIO [facility] Start: 08-24-1973 Hepatitis C antibody, confirmatory test DILATED RETINAL EXAM [facility] Start: 08-24-1973 Preventive dental service Diabetes: Dental Exam [facility] Start: 08-24-1964 MMR Vaccines (1 of 1 - Standard series) MMR Vaccines (1 of 1 - Standard series) [facility] Start: 1963 Creatinine measurement Creatinine Level [facility] Start: 1963 Echocardiography Echocardiogram [facility] Start: 1963 HIV screening HIV Screening [facility] Start: 1963 Potassium measurement Potassium Level [facility] Start: 1963 Screening for malignant neoplasm of colon [facility] Start: 1963 Skin Cancer Screening Skin Cancer Screening [facility] Start: 1963 Thyroid stimulating hormone measurement TSH Level [facility] Start: 1963 Yearly Adult Physical Yearly Adult Physical [facility] Aspergillus Galactom ivcenta EIA (Non-Blood Specimen) [facility] Work Phone: Comment on above: Release Upon Ordering for 1 Occurrences starting 09/24/2024 Bacteria identified in Unspecified specimen by Respiratory culture Respiratory Culture/Smear Microbiology Routine ILD (interstitial lung disease) ([facility]) 09/24/2024 8:39 AM EDT [facility] Work Phone: CBC W Auto Different ial panel - Blood [facility] CBC W Auto Different ial panel - Blood [facility] End: 07-24-2024 Complete Pulmonary Function Test (Spirometry/DLCO/Lung Volumes) [facility] Service Area Work Phone: Comment on above: Once for 1 Occurrences starting 07/25/19 until 07/24/2024 DLCO / Diffusion Capacity DLCO / Diffusion Capacity PFT Routine ILD (interstitial lung disease) ([facility]) 08/18/2024 10:39 AM EDT [facility] Service Area Work Phone: ECG 12 lead ECG 12 lead CV E CG Routine 05/06/2024 9:00 AM EST [facility] Work Phone: Ferritin [Mass/volum e] in Serum or Plasma [facility] Ferritin [Mass/volum e] in Serum or Plasma [facility] Folate [Mass/volume] in Serum or Plasma [facility] Fungus identified in Unspecified specimen by Culture [facility] Work Phone: Comment on above: Release Upon Ordering for 1 Occurrences starting 09/24/2024 Hepatic function panel [facility] Hepatic function panel [facility] Hepatic function panel [facility] Histoplasma capsulat um Ag [Units/volume] in Serum by Immunoassay [facility] Work Phone: Comment on above: Release Upon Ordering for 1 Occurrences starting 09/24/2024 Iron and Iron bindin g capacity panel - Serum or Plasma [facility] Iron and Iron bindin g capacity panel - Serum or Plasma [facility] Mobridge and lambda lig ht chains [facility] Lactic acid measurement [facility] Legionella PCR Panel [facility] Work Phone: Comment on above: Release Upon Ordering for 1 Occurrences starting 09/24/2024 Lipid 1996 panel - S verna or Plasma [facility] Lipid 1995 panel - S verna or Plasma [facility] Lipid 1995 panel - [facility] or Plasma [facility] Mycobacterium sp identified in Unspecified specimen by Organism specific culture [facility] Work Phone: Comment on above: Release Upon Ordering for 1 Occurrences starting 09/24/2024, 1 completed NM Heart Views W str ess and W radionuclide IV [facility] Work Phone: Non-gynecological cytology method study [facility] Work Phone: Comment on above: Release Upon Ordering for 1 Occurrences starting 09/24/2024, 1 completed End: 09-24-2024 Pathologist review of results [facility] Work Phone: Comment on above: Once (Lab) for 1 Occurrences starting until 09/24/2024, 1 completed Patient Education [facility] Work Phone: Patient referral [facility] Work Phone: End: 07-24-2024 Pulmonary Stress Test (6 Min. Walk) [facility] Work Phone: Comment on above: Once for 1 Occurrences starting 07/25/19 until 07/24/2024 Pulmonary Stress Karly t (6 Min. Walk) Pulmonary Stress Test (6 Min. Walk) PFT Routine ILD (interstitial lung disease) (Multi) 08/18/2024 11:30 AM EDT [facility] Work Phone: Reticulocyte count [facility] Reticulocyte count [facility] Spirometry Pre/Post Bronchodilator Spirometry Pre/Post Bronchodilator PFT Routine ILD (interstitial lung disease) ([facility]) 08/18/2024 11:36 AM EDT [facility] Work Phone: Surgical pathology study [facility] Work Phone: Comment on above: Release Upon Ordering for 1 Occurrences starting 09/24/2024, 1 completed End: 09-24-2024 T-cell subsets CD4 and CD8 panel - Blood [facility] Work Phone: Comment on above: Release Upon Ordering for 1 Occurrences starting 09/24/2024 Once for 1 Occurrenc es starting 09/24/2024 until 09/24/2024 T4 free measurement [facility] T4 free measurement [facility] T4 free measurement [facility] Thiamine measurement [facility] Thyroid stimulating hormone measurement [facility] Thyroid stimulating hormone measurement [facility] Thyroid stimulating hormone measurement [facility] Troponin T.cardiac [Mass/volume] in Serum or Plasma by High sensitivity method [facility] Troponin T.cardiac [Mass/volume] in Serum or Plasma by High sensitivity method [facility] Troponin T.cardiac [Mass/volume] in Serum or Plasma by High sensitivity method [facility] Carotid arteries [facility] Work Phone: Carotid arteries [facility] Carotid arteries [facility] End: 07-23-2024 US Heart Transthoracic [facility] Service Area Work Phone: Comment on above: Once for 1 Occurrences starting 07/24/19 25 until 07/23/2024 Vitamin B12 measurement [facility] Immunizations Immunization Date Immunization Notes Care Provider Fa sharla 01-13-2024 RSV Adult Recombinan t (Arexvy) Dr. Radha Khan MD Work Phone: [facility] 01-10-2024 influenza, seasonal, injectable, preservative free Dr. Radha Khan MD Work Phone: [facility] 01-10-2024 influenza virus vacc ine, unspecified formulation Rosalino Padron MD Work Phone: [facility] Work Phone: 01-18-2023 influenza virus vacc ine, unspecified formulation CHITO BUENROSTRO APRN-BUS OPERATOR [facility] 01-18-2023 influenza, injectabl e, quadrivalent, preservative free Oziel Culp MD Work Phone: [facility] 02-01-2022 zoster vaccine recombinant CHITO BUENROSTRO CUT OFF MACHINE OPERATOR-BUS OPERATOR [facility] 01-26-2022 influenza virus vacc ine, unspecified formulation CHITO BUENROSTRO CUT OFF MACHINE OPERATOR-BUS OPERATOR [facility] 01-26-2022 influenza, injectabl e, quadrivalent, contains preservative Oziel Culp MD Work Phone: [facility] 01-26-2022 influenza, injectabl e, quadrivalent, preservative free Dr. Radha Khan Work Phone: [facility] 01-26-2022 influenza, seasonal, injectable Dr. Radha Khan Work Phone: [facility] 01-16-2021 zoster vaccine recombinant CHITO BUENROSTRO CUT OFF MACHINE OPERATOR-BUS OPERATOR [facility] 01-06-2021 influenza virus vacc ine, unspecified formulation CHITO BUENROSTRO CUT OFF MACHINE OPERATOR-BUS OPERATOR [facility] 01-06-2021 influenza, injectabl e, quadrivalent, contains preservative Oziel Culp MD Work Phone: [facility] 11-30-2020 influenza, injectabl e, quadrivalent, preservative free Dr. Radha Khan Work Phone: [facility] 11-30-2020 influenza, seasonal, injectable Dr. Radha Khan Work Phone: [facility] 07-08-2020 Covid (Moderna) Dr. Radha medrano Work Phone: [facility] 06-10-2020 Darius (Moderna) Dr. Radha fuller Work Phone: [facility] 01-27-2020 influenza virus vacc ine, unspecified formulation CHITO BUENROSTRO CUT OFF MACHINE OPERATOR-BUS OPERATOR [facility] 01-27-2020 influenza, injectabl e, quadrivalent, contains preservative Oziel Culp MD Work Phone: [facility] 01-16-2019 influenza virus vacc ine, unspecified formulation CHITO BUENROSTRO CUT OFF MACHINE OPERATOR-BUS OPERATOR [facility] 01-16-2019 influenza, injectabl e, quadrivalent, contains preservative Oziel Culp MD Work Phone: [facility] 01-21-2018 influenza virus vacc ine, unspecified formulation CHITO BUENROSTRO CUT OFF MACHINE OPERATOR-BUS OPERATOR [facility] 01-21-2018 influenza, seasonal, injectable Oziel Culp MD Work Phone: [facility] 12-24-2017 influenza, injectabl e, quadrivalent, preservative free Dr. Radha Khan Work Phone: [facility] 12-24-2017 influenza, seasonal, injectable Dr. Radha Khan Work Phone: [facility] 12-09-2015 influenza virus vacc ine, unspecified formulation CHITO BUENROSTRO CUT OFF MACHINE OPERATOR-BUS OPERATOR [facility] 12-09-2015 influenza, seasonal, injectable Oziel Culp MD Work Phone: [facility] 12-24-2014 influenza virus vacc ine, unspecified formulation CHITO BUENROSTRO CUT OFF MACHINE OPERATOR-BUS OPERATOR [facility] 12-24-2014 influenza, seasonal, injectable Oziel Culp MD Work Phone: [facility] 12-06-2014 pneumococcal polysaccharide vaccine, 23 valent CHITO BUENROSTRO CUT OFF MACHINE OPERATOR-BUS OPERATOR [facility] 07-19-2014 tetanus toxoid, redu federica diphtheria toxoid, and acellular pertussis vaccine, adsorbed CHITO BUENROSTRO CUT OFF MACHINE OPERATOR-BUS OPERATOR [facility] 02-10-2014 influenza virus vacc ine, unspecified formulation CHITO BUENROSTRO CUT OFF MACHINE OPERATOR-BUS OPERATOR [facility] 02-10-2014 influenza, seasonal, injectable Oziel Culp MD Work Phone: [facility] 02-10-2009 novel influenza-H1N1 -09, preservative-free, injectable Oziel Culp MD Work Phone: [facility] Payers Date Payer Category Payer Managed Care (Private) MEDICAL M [facility] [id number] 2023 Self-pay [id number] 2023 Commercial Managed C are - HMO [id number] 2023 Unknown [employer] M MO SUPERMED [id number] 2023-Present [address] [place] [address] Commercial [id number] 2023 Unknown [id number] 2014 Unknown [id number] 2009 Unknown [facility]P [facility] [place] TH[facility] HMO [id number] 2009-Present HMO [id number] 1996 Unknown [place]P [place] [id number] 1996-2015 HMO [id number] 1963 Unknown [id number] 2.16840.1.022682.3.579.2. 627 1963 Unknown [id number] 2.16.840.1.117944.3.579.2. 1241 1963 Unknown [id number] 2.16840.1.170405.3.579.2. 1246 1963 Unknown [id number] 2.16840.1.259135.3.579.2. 1242 1963 Unknown [id number] 2.16.840.1.346660.3.579.2. 1242 1963 Unknown [id number] 2.16.840.1.332027.3.579.2. 1244 1963 Unknown [id number] 2.16.840.1.753167.3.579.2. 1244 1963 Unknown [id number] 2.16.840.1.679068.3.579.2. 1244 1963 Unknown [id number] 2.16840.1.109563.3.579.2. 1244 1963 Unknown [id number] 2.16840.1.911125.3.579.2. 1244 1963 Unknown [id number] 2.16840.1.676503.3.579.2. 1244 1963 Unknown [id number] 2.16.840.1.855314.3.579.2. 1245 1963 Unknown [id number] 2.16.840.1.436513.3.579.2. 1245 1963 Unknown [id number] 2.16.840.1.143139.3.579.2. 1245 Unknown [id number] Unknown [id number] 2.16.840.1.929865.3.579.2. 462 Unknown [id number] 2.16.840.1.890341.3.579.2. 462 Unknown [id number] 2.16.840.1.832625.3.579.2. 462 Unknown [id number] 2.16.840.1.671112.3.579.2. 462 Unknown [id number] 2.16.840.1.433470.3.579.2. 462 Unknown [id number] 2.16.840.1.489105.3.579.2. 462 Unknown [id number] 2.16.840.1.862757.3.579.2. 462 Unknown [id number] 2.16.840.1.754695.3.579.2. 462 Unknown [id number] 2.16.840.1.685234.3.579.2. 462 Unknown [id number] 2.16.840.1.146194.3.579.2. 462 Unknown [id number] 2.16.840.1.348596.3.579.2. 462 Unknown [id number] 2.16.840.1.949898.3.579.2. 462 Unknown [id number] 2.16.840.1.015257.3.579.2. 462 Unknown [id number] 2.16.840.1.838616.3.579.2. 462 Unknown [id number] 2.16.840.1.586174.3.579.2. 462 Unknown [id number] 2.16840.1.646862.3.579.2. 462 Unknown [id number] 2.16.840.1.276168.3.579.2. 462 Unknown [id number] 2.16840.1.092028.3.579.2. 462 Unknown [id number] 2.840.1.614821.3.579.2. 462 Unknown [id number] 2.840.1.467200.3.579.2. 462 Unknown [id number] 2.840.1.988397.3.579.2. 462 Unknown [id number] 2.840.1.109228.3.579.2. 462 Unknown [id number] 2.840.1.317477.3.579.2. 462 Unknown [id number] 2.840.1.222587.3.579.2. 462 Unknown [id number] 2.840.1.014838.3.579.2. 462 Unknown [id number] 2.840.1.361757.3.579.2. 462 Unknown [id number] 2.840.1.156980.3.579.2. 462 Unknown [id number] 2.840.1.896363.3.579.2. 462 Unknown [id number] .840.1.212420.3.579.2. 462 Unknown [id number] 2.840.1.235000.3.579.2. 462 Unknown [id number] 2.840.1.617108.3.579.2. 462 Unknown [id number] 2.840.1.405249.3.579.2. 462 Unknown [id number] 2.16.840.1.629252.3.579.2. 462 Unknown [id number] 2.16.840.1.038290.3.579.2. 462 Unknown [id number] 2.16.840.1.202914.3.579.2. 462 Unknown [id number] 2.16.840.1.494243.3.579.2. 462 Unknown [id number] 2.16.840.1.648452.3.579.2. 462 Unknown [id number] 2.16.840.1.346863.3.579.2. 462 Unknown [id number] 2.16.840.1.479431.3.579.2. 462 Unknown [id number] 2.16.840.1.179565.3.579.2. 462 Unknown [id number] 2.16840.1.192897.3.579.2. 462 Unknown [id number] 2.16.840.1.103049.3.579.2. 462 Unknown [id number] 2.16.840.1.414074.3.579.2. 462 Unknown [id number] 2.16.840.1.531122.3.579.2. 462 Unknown [id number] 2.16.840.1.439925.3.579.2. 462 Unknown [id number] 2.16.840.1.320840.3.579.2. 462 Unknown [id number] 2.16.840.1.584366.3.579.2. 462 Unknown [id number] 2.16.840.1.160516.3.579.2. 462 Unknown [id number] 2.16.840.1.211362.3.579.2. 462 Unknown [id number] 2.16.840.1.098931.3.579.2. 462 Unknown [id number] 2.16.840.1.262462.3.579.2. 462 Unknown [id number] 2.16.840.1.495103.3.579.2. 462 Unknown [id number] 2.16.840.1.135142.3.579.2. 462 Unknown [id number] 2.16.840.1.237452.3.579.2. 462 Unknown [id number] 2.16.840.1.569152.3.579.2. 462 Unknown [id number] 2.16.840.1.532799.3.579.2. 462 Unknown [id number] 2.16.840.1.274515.3.579.2. 462 Unknown [id number] 2.16.840.1.845593.3.579.2. 462 Unknown [id number] 2.840.1.259300.3.579.2. 462 Unknown [id number] 2.840.1.660188.3.579.2. 462 Unknown [id number] 2.840.1.332388.3.579.2. 462 Unknown [id number] 2.840.1.917438.3.579.2. 462 Unknown [id number] 2.840.1.613343.3.579.2. 462 Unknown [id number] 2.16840.1.530251.3.579.2. 462 Unknown [id number] 2.16.840.1.677464.3.579.2. 462 Unknown [id number] 2.16.840.1.932152.3.579.2. 462 Unknown [id number] 2.16.840.1.929758.3.579.2. 462 Unknown [id number] 2.16.840.1.743316.3.579.2. 462 Unknown [id number] 2.16.840.1.106262.3.579.2. 462 Unknown [id number] 2.16.840.1.746178.3.579.2. 462 Unknown [id number] 2.16840.1.822737.3.579.2. 462 Unknown [id number] 2.16840.1.779751.3.579.2. 462 Unknown [id number] 2.16840.1.737768.3.579.2. 462 Unknown [id number] 2.840.1.608929.3.579.2. 462 Unknown [id number] 2.840.1.663079.3.579.2. 462 Unknown [id number] 2.840.1.879668.3.579.2. 462 Unknown [id number] 2.840.1.815333.3.579.2. 462 Unknown [id number] 2.840.1.242852.3.579.2. 462 Unknown [id number] 2.840.1.967582.3.579.2. 462 Unknown [id number] 2.840.1.562262.3.579.2. 462 Unknown [id number] 2.840.1.483557.3.579.2. 462 Unknown [id number] 2.840.1.683208.3.579.2. 462 Unknown [id number] 2.840.1.185344.3.579.2. 462 Unknown [id number] 2.840.1.700558.3.579.2. 462 Unknown [id number] 2.840.1.968904.3.579.2. 462 Unknown [id number] 2.840.1.817227.3.579.2. 462 Unknown [id number] 2.840.1.549304.3.579.2. 462 Unknown [id number] 2.840.1.861640.3.579.2. 462 Unknown [id number] 2.16.840.1.326139.3.579.2. 462 Social History Date Type Detail Facility Start: 06-14-2007 End: 11-26-2024 Tobacco smoking status NHIS Never smoker [facility] Start: 06-14-2007 Alcohol intake Not Asked [facility] Start: 1965 Sex Assigned At Not on file [facility] Start: 07-16-2021 End: 07-17-2023 Tobacco smoking status NJIS Unknown if ever smoked [facility] Start: 03-28-2020 None [facility] Start: 03-28-2020 Spouse/ Significant Other [facility] Start: 04-20-2018 Non-smoker [facility] Start: 1965 Sex Assigned At Male [facility] Start: 10-03-2023 Gender identity Identifies as male gender (finding) [facility] Start: 01-06-2024 End: 11-13-2024 Sexual orientation Not on file [facility] Start: 01-06-2024 Tobacco use and exposure Smokeless tobacco non-user [facility] Start: 01-06-2024 End: 05-06-2024 Alcoholic beverage intake Ex-drinker (finding) [facility] Start: 01-06-2024 End: 11-13-2024 History of Social function [facility] Start: 10-03-2023 Sex Male (finding) [facility] Start: 06-26-2024 End: 11-13-2024 Alcoholic beverage intake Lifetime non-drinker (finding) [facility] Work Phone: Start: 05-22-2024 Sexual orientation Heterosexual (finding) [facility] Work Phone: Start: 06-16-2024 End: 08-28-2024 Exposure to SARS-CoV-2 (event) Not sure [facility] How often to you hav e a drink containing alcohol? Never [facility] Work Phone: Start: 05-15-2024 How many standard drinks containing alcohol do you have on a typical day? Patient does not drink [facility] Work Phone: Medical Equipment Procedure Code Equipment Code Equipment Origin al Text Equipment Identifier Dates Colonoscopy [id number] [facility] Start: 03-27-2024 Stent Inlay Opti ma 7fr Taper [place] Phreecoat Polymer 28cm [facility] - [id number] Start: 09-06-2015 Pen Needle, Diab etic [...] 06-01-2021 Pen Needle, Diab etic (Bd Ultra-Fine Kkii Pen Needle) 32 gauge x 5/32 needle [...] 5/32 needle Start: 06-01-2021 Device Clsr Mynx director operations broadcast 5fr y - [id number] Start: 05-06-2024 Pen Needle, Diab etic [...] /State Functional Status Date Assessment Result Facility 11-28-2024 Functional status Ambulates [facility] Work Phone: 09-28-2024 Functional status Chair [facility] Work Phone: 09-24-2024 [place] - suicide severity rating scale screener - recent [C-SSRS] [facility] Work Phone: 08-07-2024 Total score [AUDIT-C] 0 08/08/19 2:09 PM Rivka Cagle MA [facility] Work Phone: 04-25-2024 Functional status [facility] Work Phone: 04-15-2024 Functional status Ambulates;Chair [facility] Work Phone: 10-03-2023 Functional Status Room check performed [facility] 10-03-2023 Functional Status Jarred Peterson [facility] 10-03-2023 Functional Status Jarred Nicholas [facility] 10-03-2023 Functional Status bilateral knee high removed/off [facility] 10-02-2023 Functional Status Jarred Nicholas [facility] 10-02-2023 Functional Status Demonstrates C orrect Call Light Use Yes [facility] 10-02-2023 [facility] Functional Status Single level home [facility] 10-02-2023 Functional Status None Jarredjoesph Peterson [facility] 08-03-2022 Functional status [facility] Work Phone: 06-20-2021 Functional status Up ad harini [facility] Work Phone: [facility] Work Phone: Mental Status Date Assessment Result Facility 12-10-2024 Cognitive function Awake;Alert;A ppropriate;Fo llows Commands [facility] Work Phone: 11-28-2024 Cognitive function Voice/Name [facility] Work Phone: 11-26-2024 Cognitive function Awake;Alert;A ppropriate;Fo llows Commands [facility] Work Phone: 09-28-2024 Cognitive function Voice/Name [facility] Work Phone: 09-26-2024 Cognitive function Voice/Name [facility] Work Phone: 04-25-2024 Cognitive function Voice/Name [facility] Work Phone: 04-15-2024 Cognitive function Voice/Name [facility] Work Phone: 10-03-2023 Mental Status Oriented x 4 [facility] 10-02-2023 Mental Status [facility] 10-02-2023 Mental Status [facility] 02-18-2023 Cognitive function Voice/Name [facility] Work Phone: 08-03-2022 Cognitive function Awake;Alert;A ppropriate;Fo llows Commands;Responds to vocal stimuli [facility] Work Phone: 08-03-2022 Cognitive function Voice/Name [facility] Work Phone: 06-20-2021 Cognitive function Appropriate;Valente wylie [facility] Work Phone: Clinical Notes 08-02-2022 to 11-28-2024 Note Date & Type Note Facility 11-28-2024 Discharge summary Note Date/Time November 28, 2024 1:01pm [facility] Medical Records Department [address] [place] [address] Discharge Summary 11/28/24 1250 MR#: [id number] Acct: [id number] Name: KRUNAL LEOS Rep #:[id number] : 1965 59 From: Ochoa Johnson DO PCP: Dr. 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 Blood pressure stable. Present on arrival. qSOFA of 2 with hypertension and tachypnea. Secondary to right lower extremity cellulitis. Patient did not receive 30 cc/kg of IV fluid given his history of heart failure and concern for worsening respiratory distress given large quantity of fluid thepatient would require. Complicated by the fact the patient does take steroids chronically for his pulmonary fibrosis. Most recently has been weaned down to 15 mg daily of prednisone. May have a component of adrenal insufficiency in light of the acuteinfection so patient will receive a one-time dose of hydrocortisone 100 mg todayand then will start prednisone 40 mg daily starting on the and then would anticipate taper down to 15 mg. Urine culture showing beta Streptococcus but low CFU's. Likely not a true infection. (2) Cellulitis: Status: Acute Code(s): L03.90 - Cellulitis, unspecified Plan: Improving right lower extremity in the groin. Adjacent to the scrotum but no evidence of any Jesús's gangrene. Vancomycin and pip-tazo while he is inpatient and has greatly improved. Will discharge the patient with doxycycline and cephalexin. (3) Debility: Status: Acute Code(s): R53.81 - Other malaise Plan: Patient is a wheelchair-bound for trips such as to the doctor's office. Does able to go to his own bathroom however. But given the relatively limited performance status, will consult PT OT evaluate and treat to see, with when the patient is ready for discharge if he would be stable for home or if you may require additional therapy resources. Plan Chronic conditions * Chronic respiratory failure secondary pulmonary fibrosis: Currently stable at this time. Patient to follow-up with his transport medic as outpatient. Patient takes pirfenidone for his pulmonary fibrosis as a trial. Pulmonary has told the family for that medication to be held until he is discharged. Patient on steroids with prednisone. Please see above for further details. * Diabetes mellitus type 2: Does use an insulin pump but not working currently will put him on 30 units of glargine twice daily plus a sliding scale insulin. Check an A1c. Continue with empagliflozin * HFpEF. Appears compensated at this time. Hold furosemide given the sepsis at this time. * Hypertension: Meds with hold parameters but will hold lisinopril and furosemide for now. * Obesity class III: Complicates care and recovery * BPH: Continue tamsulosin * History of CVA: Continue with aspirin and ticagrelor. In the patient is already on apixaban as well, will change his aspirin from 3 25-81 daily. VTE prophylaxis: Not indicated as patient is already on apixaban CODE STATUS: Addressed with patient. Initially patient stated that he would want to have CPR but would not want to be put on ventilator. When I discussed with he and his family that I would recommend he either be full code or DNR Comfort Care arrest no intubation. He chose the latter. Patient advised as well as his family that he could change his mind anytime just inform us if he does so. Disposition: To home today. Medications at Discharge Home Medications tamsulosin 0.4 mg capsule 0.4 mg PO DAILY prostate 09/08/15 duloxetine 60 mg capsule,delayed release (Cymbalta) 60 mg PO DAILY depression 04/17/18 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,equity structurer,cont (Dexcom G6 Rn Clinical) #1 ea 07/26/20 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 transmitter (Dexcom G6 Transmitter device) #1 ea 12/29/21 infusion set for insulin pump 10/08/22 insulin pump controller 10/08/22 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 sensor (Dexcom G6 Sensor device) #1 ea 02/25/23 insulin regular hum U-500 conc 500 unit/mL subcutaneous soln (Humulin R U-500 (Concentrated) Insulin) 75 unit (0.15 mL) continuous subcutaneous infusion DAILYblood sugar #20 mL 11/11/23 ferrous sulfate 325 mg (65 mg iron) tablet (Feosol) 325 mg PO DAILY anemia 03/02/24 amlodipine 5 mg tablet 5 mg PO QDAY blood pressure 03/13/24 metoprolol succinate 100 mg tablet,extended release 24 hr 100 mg PO DAILY heart #90 tabs 03/27/24 lisinopril 40 mg tablet 40 mg PO DAILY blood pressure 04/12/24 ticagrelor 90 mg tablet (Brilinta) 90 mg PO BID 05/21/24 furosemide 40 mg tablet (Lasix) 40 mg PO BID diuretic #270 tabs 06/23/24 pantoprazole 40 mg tablet,delayed release (Protonix) 40 mg PO BID acid reflux #60 tabs 07/22/24 empagliflozin 25 mg tablet (Jardiance) 25 mg PO DAILY diabetes #30 tabs 08/12/24 apixaban 5 mg tablet (Eliquis) 5 mg PO BID blood thinner #180 tabs 08/31/24 buspirone 10 mg tablet 10 mg PO BID Anxiety 09/16/24 oxycodone-acetaminophen 5 mg-325 mg tablet 1 tab PO TID PRN pain 09/16/24 prednisone 5 mg tablet See Rx Instructions PO .COMPLEX steriod 09/16/24 Held on 11/28/24. Instructions: Resume on 12/06/24. fenofibrate 54 mg tablet 134 mg PO QDAY 10/27/24 rosuvastatin 40 mg tablet 40 mg PO QDAY #30 tabs 10/27/24 albuterol sulfate 2.5 mg/3 mL (0.083 %) solution for nebulization 2.5 mg inhalation Q4H PRN shortness of breath or wheezing 11/25/24 levothyroxine 125 mcg tablet 125 mcg PO QDAY 11/25/24 pirfenidone 267 mg tablet 267 mg PO TID breathing 11/25/24 acetaminophen 500 mg tablet 1,000 mg (2 x 500 mg) PO Q8 PRN pain #0 tabs 11/28/24 aspirin 81 mg chewable tablet 81 mg PO BREAKFAST #0 tabs 11/28/24 cephalexin 500 mg capsule 500 mg PO Q8H #15 caps 11/28/24 doxycycline monohydrate 100 mg tablet 100 mg PO BID #10 tabs 11/28/24 prednisone 10 mg tablet 10 mg PO DAILY #15 tabs 11/28/24 Hospital Course Operations None Procedures None Summary of Care Provided Minutes Spent on Discharge: 35 Hospital Course: The patient presents with weakness and falls. Patient was diagnosed with sepsisand as well as right lower extremity cellulitis. Patient was hypotensive upon arrival. Patient likely has adrenal insufficiency due to chronic steroid use hetakes chronically for his pulmonary fibrosis. Patient received a dose of IV hydrocortisone and has been started on higher dose of prednisone. Blood pressure has been stable. Weight / BMI Weight Weight: 147.9 kg Body Mass Index (BMI) 48.1 ABG / Lab / Microbiology Data 11/28/24 10:26 11/28/24 10:26 Laboratory: Laboratory Results - last 24 hr 11/27/24 11:13: POC Glucose 241 H 11/27/24 16:29: POC Glucose 436 H 11/27/24 21:17: POC Glucose 397 H 11/27/24 23:36: Vancomycin Trough 16.7 H 11/28/24 05:59: POC Glucose 228 H 11/28/24 10:26: WBC 11.5 H, RBC 3.54 L, Hgb 8.6 L, Hct 27.4 L, MCV 77.4 L, MCH 24.3 L, MCHC 31.4 L, RDW Std Deviation 51.1 H, RDW Coeff of Gavi 17.9 H, Plt Count 195, MPV 10.1, Immature Gran % (Auto) 0.900, Neut % (Auto) 78.0 H, Lymph %(Auto) 11.2 L, Wharton % (Auto) 7.9, Eos % (Auto) 1.7, Baso % (Auto) 0.3, Absolute Neuts (auto) 8.9 H, Absolute Lymphs (auto) 1.28, Nucleated RBC % 0, Sodium 135, Potassium 3.8, Chloride 102, Carbon Dioxide 20.5 L, Anion Gap 12, BUN 26 H, Creatinine 1.23 H, Estim Creat Clear Calc 90.61, Est GFR (MDRD) Non-Af 67, BUN/Creatinine Ratio 21.1 H, Glucose 242 H, Calcium 9.0 11/28/24 11:31: POC Glucose 223 H Microbiology: Microbiology 11/26/24 09:50 Urine, Catheterized Urine Culture - Preliminary Streptococcus agalactiae (B) Mixed Gram Positive Organisms 11/26/24 09:55 Mucosa - Nose SARS-CoV-2, Influenza & RSV (PCR) - Final D/C Instructions DC O2, CPAP, BIPAP Needs Home O2 Discharge instructions: Yes Type of respiratory needs?: Oxygen Oxygen frequency: Continuous Continuous oxygen liters per minute: 4 DC home with Oxygen: Yes Home O2 MD Review: I have reviewed the oxygen testing, and the patient qualifies for home oxygen equipment and portability. The patient is mobile in the home and the community. Meaningful Use Info Meaningful Use Meaningful Use Diagnoses (Choose all that apply): None applicable Discharge Plan Admission Admit Date/Time: 11/26/24 11:54 Primary Reason for Your Visit: Cellulitis Attending Provider: Ochoa Johnson Primary Care Provider: Brandt Winter Instructions Additional Instructions / Restrictions: You had cellulitis of your right leg. Due to illness with stress in your body that cause your pressure to drop complicated by the fact that you take steroids chronically with prednisone. You been on higher dose prednisone decrease that to your baseline of 15 mg daily. Discharge Orders/Prescriptions Prescriptions: New acetaminophen 500 mg Tablet 1,000 mg PO Q8 PRN (Reason: pain) Qty: 0 0RF aspirin 81 mg Tablet,Chewable 81 mg PO BREAKFAST Qty: 0 0RF prednisone 10 mg tablet 10 mg PO DAILY Qty: 15 0RF Rx Instructions: 4 tabs for 1 day, then 3 tabs for 3 days, then 2 tabs for 3 days, then resumeyour normal 15mg daily dosing. doxycycline monohydrate 100 mg tablet 100 mg PO BID Qty: 10 0RF cephalexin 500 mg capsule 500 mg PO Q8H Qty: 15 0RF Continued (DME) Dexcom G6 Rn Clinical Misc See Rx Instructions .ROUTE .MEDSUPPLY Qty: 1 0RF Rx Instructions: As directed (DME) infusion set for insulin pump Infusion Set See Rx Instructions .Route Rx Instructions: As directed (DME) insulin pump controller Misc See Rx Instructions .Route Rx Instructions: As directed amlodipine 5 mg tablet 5 mg PO QDAY oxycodone-acetaminophen 5-325 mg tablet 1 tab PO TID PRN (Reason: pain) fenofibrate 54 mg tablet 134 mg PO QDAY rosuvastatin 40 mg tablet 40 mg PO QDAY Qty: 30 11RF Brilinta 90 mg tablet 90 mg PO BID albuterol sulfate 2.5 mg /3 mL (0.083 %) solution for nebulization 2.5 mg inhalation Q4H PRN (Reason: shortness of breath or wheezing) levothyroxine 125 mcg tablet 125 mcg PO QDAY pirfenidone 267 mg tablet 267 mg PO TID tamsulosin 0.4 MG capsule 0.4 mg PO DAILY duloxetine [Cymbalta] 60 MG capsule,delayed release(DR/EC) 60 mg PO DAILY buspirone 10 mg tablet 10 mg PO BID ferrous sulfate [Feosol] 325 mg (65 mg iron) tablet 325 mg PO DAILY lisinopril 40 mg tablet 40 mg PO DAILY (DME) Dexcom G6 Transmitter Device [...] 5 mg PO BID Qty: 180 3RF Held prednisone 5 mg tablet See Rx Instructions PO .COMPLEX Hold Instructions: Resume on 12/06/24. Rx Instructions: patient currently taking 15mg daily. Discontinued aspirin 325 mg tablet 325 mg PO DAILY Patient Comments: coated Referrals / Follow Up: Brandt Winter MD [Primary Care Provider] - Within 2 Weeks Disposition Disposition (needs filled in before D/C Order can be placed): Home, Self Care Charges/Coding Visit Charges Inpatient E&M: 77560 Disch Hosp >30min 11/28/24 1301 <Electronically signed by Ochoa Johnson DO> Cosigner Signature (if applicable): CC: Dr. Brandt Winter MD; Dr. Ochoa Johnson DO~ Signed [facility] Work Phone: 1(217) 626-189408-30-2025 Progress note Author Ochoa Johnson [facility] Note Date/Time November 28, 2024 12 :50pm [facility] Medical Records Department [address] [place] [address] Progress Note - Hospitalist 11/28/24 0943 MR#: [id number] Acct: [id number] Name: KRUNAL LEOS Rep #:[id number] : 1965 59 From: Ochoa Johnson DO PCP: Dr. Brandt Winter MD Status:ADM IN Location: [place] [address] Reason for Visit Chief Complaint: Weakness Subjective Subjective Feeling well. Ready to go home. Objective Data Objective Data Vital Signs: Vital Signs Temp Pulse Resp BP Pulse Ox O2 Del Method O2 Flow Rate 36.4 C L 97 18 162/76 H 94 Nasal Cannula 8 11/28/24 08:50 11/28/24 08:58 11/28/24 08:50 11/28/24 08:58 11/28/24 08:50 11/28/24 08:50 11/28/24 08:50 Oxygen Flow Rate (L/min) 8 Oxygen Delivery Method Nasal Cannula Weight: 147.9 kg Body Mass Index (BMI) 48.1 Intake & Output: Intake and Output for Last 24 Hours 11/26/24 11/27/24 11/28/24 23:59 23:59 23:59 Intake Total 2240 / 2240 700 / 700 325 / 325 Output Total 1875 / 2425 1250 / 1250 Balance 2240 / 1640 -1175 / -1725 -925 / -925 Lab / Micro Data 11/28/24 10:26 11/28/24 10:26 Labs: Laboratory Results - last 24 hr 11/27/24 11:13: POC Glucose 241 H 11/27/24 16:29: POC Glucose 436 H 11/27/24 21:17: POC Glucose 397 H 11/27/24 23:36: Vancomycin Trough 16.7 H 11/28/24 05:59: POC Glucose 228 H Micro: Microbiology 11/26/24 09:50 Urine, Catheterized Urine Culture - Preliminary Streptococcus agalactiae (B) Mixed Gram Positive Organisms 11/26/24 09:55 Mucosa - Nose SARS-CoV-2, Influenza & RSV (PCR) - Final Physical Exam Const alert and no apparent distress Constitutional Narrative: Lying in bed. On oxygen. No respiratory distress. No conversational dyspnea. Resp normal respiratory effort and no retractions Skin Skin Narrative: Redness greatly improved. Patient had the open area previously that with no further purulence. Assessment & Plan Assessment/Plan (1) Sepsis: PLAN: Clinically improved. Blood pressure stable. Present on arrival. qSOFA of 2 with hypertension and tachypnea. Secondary to right lower extremity cellulitis. Patient did not receive 30 cc/kg of IV fluid given his history of heart failure and concern for worsening respiratory distress given large quantity of fluid thepatient would require. Complicated by the fact the patient does take steroids chronically for his pulmonary fibrosis. Most recently has been weaned down to 15 mg daily of prednisone. May have a component of adrenal insufficiency in light of the acuteinfection so patient will receive a one-time dose of hydrocortisone 100 mg todayand then will start prednisone 40 mg daily starting on the and then would anticipate taper down to 15 mg. Urine culture showing beta Streptococcus but low CFU's. Likely not a true infection. (2) Cellulitis: PLAN: Improving right lower extremity in the groin. Adjacent to the scrotum but no evidence of any Jesús's gangrene. Vancomycin and pip-tazo while he is inpatient and has greatly improved. Will discharge the patient with doxycycline and cephalexin. (3) Debility: PLAN: Patient is a wheelchair-bound for trips such as to the doctor's office. Does able to go to his own bathroom however. But given the relatively limited performance status, will consult PT OT evaluate and treat to see, with when the patient is ready for discharge if he would be stable for home or if you may require additional therapy resources. PLAN: Plan Chronic conditions * Chronic respiratory failure secondary pulmonary fibrosis: Currently stable at this time. Patient to follow-up with his transport medic as outpatient. Patient takes pirfenidone for his pulmonary fibrosis as a trial. Pulmonary has told the family for that medication to be held until he is discharged. Patient on steroids with prednisone. Please see above for further details. * Diabetes mellitus type 2: Does use an insulin pump but not working currently will put him on 30 units of glargine twice daily plus a sliding scale insulin. Check an A1c. Continue with empagliflozin * HFpEF. Appears compensated at this time. Hold furosemide given the sepsis at this time. * Hypertension: Meds with hold parameters but will hold lisinopril and furosemide for now. * Obesity class III: Complicates care and recovery * BPH: Continue tamsulosin * History of CVA: Continue with aspirin and ticagrelor. In the patient is already on apixaban as well, will change his aspirin from 3 25-81 daily. VTE prophylaxis: Not indicated as patient is already on apixaban CODE STATUS: Addressed with patient. Initially patient stated that he would want to have CPR but would not want to be put on ventilator. When I discussed with he and his family that I would recommend he either be full code or DNR Comfort Care arrest no intubation. He chose the latter. Patient advised as well as his family that he could change his mind anytime just inform us if he does so. Disposition: To home today. 11/28/24 1250 <Electronically signed by Ochoa Johnson DO> Cosigner Signature (if applicable): CC: ~ Signed [facility] Work Phone: [phone]) [phone] [facility]08-30-2025 Consult note Author Ochoa Faust [facility] Note Date/Time November 28, 2024 12 :51am [facility] Medical Records Department [address] [place] [address] Pharmacokinetic/Renal -Consult 11/28/24 0049 MR#: [id number] Acct: [id number] Name: KRUNAL LEOS Rep #:[id number] : 1965 59 From: Ochoa Faust PCP: Dr. Brandt Winter MD Status:ADM IN Y Location: [place] [address] Consult Antibiotic Management Pharmacy has been consulted to manage selected antibiotic: Vancomycin Type of Intervention Type of Consult: Follow-up Suspected Infection Suspected Infection: Skin/Soft tissue Labs Labs: Sodium 137 mmol/L (133-145) 11/27/24 05:23 Potassium 3.8 mmol/L (3.3-5.1) 11/27/24 05:23 Chloride 104 mmol/L (98-108) 11/27/24 05:23 Carbon Dioxide 22.2 mmol/L (21.0-32.0) 11/27/24 05:23 Anion Gap 11 (5-15) 11/27/24 05:23 BUN 29 mg/dL (4-19) H 11/27/24 05:23 Creatinine 1.37 mg/dL (0.70-1.20) H 11/27/24 05:23 Est GFR (MDRD) Non-Af 59 (>60) L 11/27/24 05:23 BUN/Creatinine Ratio 21.5 RATIO (10-20) H 11/27/24 05:23 Glucose 203 mg/dL (70-99) H 11/27/24 05:23 Vancomycin Trough 16.7 ug/mL (5.0-15.0) H 11/27/24 23:36 Microbiology Microbiology: Microbiology 11/26/24 09:50 Urine, Catheterized Urine Culture - Preliminary Beta streptococcus 11/26/24 09:55 Mucosa - Nose SARS-CoV-2, Influenza & RSV (PCR) - Final Dosing Weight Weight used for dosin kg Estimated Creatinine Clearance Estimated Creatinine Clearance: 81 Goal Trough Goal Trough: 15-20 mcg/mL Pharmacy Plan for Drug Dosing Pharmacy Plan for Drug Dosing: Vancomycin trough level of 16.7, drawn 10.5hrs post-dose, was within the target range of 15-20. Will continue dosing at 1250mg q12h, and will draw another trough level in two days. Pharmacy Service will continue to monitor and adjust dosing as required. Follow-Up Labs Follow-Up Labs: Trough: Vancomycin Date/Time Labs Ordered Labs to be done on [date and time ordered]: 11/29/24 @2330 11/28/24 0051 <Electronically signed by Ochoa W Sean ds> Date _ Ochoa Toth Signature (if applicable): Date CC: ~ Signed [facility] Work Phone: 1(183) 840-714208-29-2025 Progress note Author Ochoa Johnson [facility] Note Date/Time November 27, 2024 12 :01pm [facility] Medical Records Department [address] [place] [address] [place] [address] Progress Note - Hospitalist 11/27/24822 MR#: [id number] Acct: [id number] Name: SAWYERJAMILAKRUNAL Rep #:[id number] : 1965 59 From: Ochoa Johnson DO PCP: Dr. Brandt Winter MD Status:ADM IN Location: [place] [address] Reason for Visit Chief Complaint: Weakness Subjective Subjective Still with right leg pain. Objective Data Objective Data Vital Signs: Vital Signs Temp Pulse Resp BP Pulse Ox O2 Del Method O2 Flow Rate 36.6 C 93 18 135/65 H 98 Nasal Cannula 4 11/27/24 08:09 11/27/24 08:09 11/27/24 08:13 11/27/24 08:09 11/27/24 08:09 11/27/24 08:13 11/27/24 08:13 Oxygen Flow Rate (L/min) 4 Oxygen Delivery Method Nasal Cannula Weight: 147.9 kg Body Mass Index (BMI) 48.1 Intake & Output: Intake and Output for Last 24 Hours 11/25/24 11/26/24 11/27/24 23:59 23:59 23:59 Intake Total 2240 / 2240 325 / 325 Output Total 1100 / 1100 Balance 2240 / 1640 -775 / -775 Lab / Micro Data 11/27/24 05:23 11/27/24 05:23 Labs: Laboratory Results - last 24 hr 11/26/24 09:40: WBC 18.7 H, RBC 4.14 L, Hgb 10.0 L, Hct 32.0 L, MCV 77.3 L, MCH 24.2 L, MCHC 31.3 L, RDW Std Deviation 51.3 H, RDW Coeff of Gavi 18.7 H, Plt Count 246, MPV 10.3, Immature Gran % (Auto) 1.100 H, Neut % (Auto) 76.5 H, Lymph% (Auto) 8.9 L, Wharton % (Auto) 12.8 H, Eos % (Auto) 0.4, Baso % (Auto) 0.3, Absolute Neuts (auto) 14.3 H, Absolute Lymphs (auto) 1.67, Nucleated RBC % 0, Platelet Estimate ADEQUATE, Ovalocytes 1+, Sodium 135, Potassium 3.8, Chloride 96 L, Carbon Dioxide 23.3, Anion Gap 15, BUN 42 H, Creatinine 2.06 H, Estim Creat Clear Calc 53.51, Est GFR (MDRD) Non-Af 36 L, BUN/Creatinine Ratio 20.6 H,Glucose 336 H, Lactic Acid 1.8, Calcium 9.1, Total Bilirubin 0.71, AST 13, ALT 18, Alkaline Phosphatase 58, Troponin T High Sens 59 H* D, Total Protein 7.2, Albumin 3.7, Globulin 3.5, Albumin/Globulin Ratio 1.1 11/26/24 09:50: Urine Color Yellow, Urine Clarity Clear, Urine pH 6.0, Ur Specific [place] 1.015, Urine Protein 15 H, Urine Glucose (UA) 1000 H, Urine Ketones Negative, Urine Occult Blood Negative, Urine Nitrite Negative, Urine Bilirubin Negative, Urine Urobilinogen Normal, Ur Leukocyte Esterase Negative, Urine RBC 0 SEEN, Urine WBC 0 SEEN, Ur Squamous Epith Cells 0-5 SEEN, Urine Bacteria 0 SEEN, Urine Mucus 0 SEEN 11/26/24 12:01: Troponin T Hi Sens 2 Hr 52 H 11/26/24 16:35: Lactic Acid < 1.0 11/26/24 16:49: Troponin T Hi Sens 4Hr 51 H 11/26/24 16:53: POC Glucose 384 H 11/26/24 22:21: POC Glucose 467 H* 11/27/24 05:23: WBC 12.6 H, RBC 3.66 L, Hgb 8.9 L, Hct 28.5 L, MCV 77.9 L, MCH 24.3 L, MCHC 31.2 L, RDW Std Deviation 51.8 H, RDW Coeff of Gavi 18.6 H, Plt Count 191, MPV 10.0, Immature Gran % (Auto) 0.800, Neut % (Auto) 74.4 H, Lymph %(Auto) 13.0 L, Wharton % (Auto) 10.3 H, Eos % (Auto) 1.2, Baso % (Auto) 0.3, Absolute Neuts (auto) 9.4 H, Absolute Lymphs (auto) 1.63, Nucleated RBC % 0, Sodium 137, Potassium 3.8, Chloride 104, Carbon Dioxide 22.2, Anion Gap 11, BUN 29 H, Creatinine 1.37 H, Estim Creat Clear Calc 81.35, Est GFR (MDRD) Non-Af 59 L, BUN/Creatinine Ratio 21.5 H, Glucose 203 H, Hemoglobin A1c 9.6 H, Calcium 9.0 11/27/24 06:03: POC Glucose 181 H Micro: Microbiology 11/26/24 09:55 Mucosa - Nose SARS-CoV-2, Influenza & RSV (PCR) - Final ABG Data ABG results: ABG 11/26/24 10:34 Specimen Type JOSHUA Sample Site Not entered VBG pH 7.44 H VBG pO2 40 VBG HCO3 25 VBG Total CO2 26 VBG O2 Sat (Calc) 77 H VBG Base Excess 1 POC Mix VBG pCO2 Pt Tmp 37.0 L O2 Delivery Device Not entered Radiography Diagnostic Testing: Radiology Impression Brain CT 11/26/24 09:38 IMPRESSION: There is low-density in the deep white matter in the right and left, likely chronic ischemic change, similar to the prior. There is a 1.5 cm mucous retention cyst in the left maxillary sinus, unchanged. There is fluid density in a portion of the left mastoid air cells, similar to the prior. There is no visible acute traumatic injury. Reading Location: [facility] Cervical Spine CT 11/26/24 09:38 IMPRESSION: DEGENERATIVE CHANGES OF THE CERVICAL SPINE. NO EVIDENCE OF SIGNIFICANT OSSEOUS CENTRAL CANAL OR NEURAL FORAMINAL STENOSIS. Reading Location: [id number] Chest X-Ray 11/26/24 09:38 IMPRESSION: Examination limited by hypoinflation, as well as extensive patient motion, particularly on both lateral views. No gross acute pneumonic process is noted. Probable chronic lung changes. No pleural effusion or pneumothorax is seen. The cardiomediastinal silhouette is stable, without evidence of cardiomegaly. Generalized osteopenia is present. Mild thoracic spine degenerative changes are seen, along with DISH. No acute osseous process is identified. Reading Location: [facility] Pelvis X-Ray 11/26/24 09:38 IMPRESSION: Degenerative changes are again seen of the visualized lower lumbar spine. Sacroiliac joints appear symmetric and within the normal range for age. Mild asymmetric right hip joint degenerative changes are seen, with mild superolateral joint narrowing. No evidence of femoral head osteonecrosis. No acute fracture or dislocation is seen. If clinical concern persists, short-term follow-up imaging may be obtained to rule out a currently occult fracture. Reading Location: [place] [address] Physical Exam Const alert and no apparent distress Constitutional Narrative: in bed, on oxygen. no respiratory distress. no conversational dyspnea. HEENT head/scalp atraumatic and moist oral mucous membranes Resp normal respiratory effort and no retractions Extremity General Extremity: edema bilateral lower extremity Skin Skin Narrative: Erythema in the right groin shows improved erythema overall. Patient does have induration more posteriorly and medially. The area that was bleeding has stopped but it is indurated and tender palpation but no fluctuance appreciated. Neuro Sensorium / Orientation: awake and alert Psych affect normal Assessment & Plan Assessment/Plan (1) Sepsis: PLAN: Clinically improved. Blood pressure stable. Present on arrival. qSOFA of 2 with hypertension and tachypnea. Secondary to right lower extremity cellulitis. Patient did not receive 30 cc/kg of IV fluid given his history of heart failure and concern for worsening respiratory distress given large quantity of fluid thepatient would require. Complicated by the fact the patient does take steroids chronically for his pulmonary fibrosis. Most recently has been weaned down to 15 mg daily of prednisone. May have a component of adrenal insufficiency in light of the acuteinfection so patient will receive a one-time dose of hydrocortisone 100 mg todayand then will start prednisone 40 mg daily starting on the and then would anticipate taper down to 15 mg. Urine culture showing beta Streptococcus but low CFU's. Likely not a true infection. (2) Cellulitis: PLAN: Improving right lower extremity in the groin. Adjacent to the scrotum but no evidence of any Jesús's gangrene. Vancomycin and pip-tazo (3) Debility: PLAN: Patient is a wheelchair-bound for trips such as to the doctor's office. Does able to go to his own bathroom however. But given the relatively limited performance status, will consult PT OT evaluate and treat to see, with when the patient is ready for discharge if he would be stable for home or if you may require additional therapy resources. PLAN: Plan Chronic conditions * Chronic respiratory failure secondary pulmonary fibrosis: Currently stable at this time. Patient to follow-up with his transport medic as outpatient. Patient takes pirfenidone for his pulmonary fibrosis as a trial. Pulmonary has told the family for that medication to be held until he is discharged. Patient on steroids with prednisone. Please see above for further details. * Diabetes mellitus type 2: Does use an insulin pump but not working currently will put him on 30 units of glargine twice daily plus a sliding scale insulin. Check an A1c. Continue with empagliflozin * HFpEF. Appears compensated at this time. Hold furosemide given the sepsis at this time. * Hypertension: Meds with hold parameters but will hold lisinopril and furosemide for now. * Obesity class III: Complicates care and recovery * BPH: Continue tamsulosin * History of CVA: Continue with aspirin and ticagrelor. In the patient is already on apixaban as well, will change his aspirin from 3 25-81 daily. VTE prophylaxis: Not indicated as patient is already on apixaban CODE STATUS: Addressed with patient. Initially patient stated that he would want to have CPR but would not want to be put on ventilator. When I discussed with he and his family that I would recommend he either be full code or DNR Comfort Care arrest no intubation. He chose the latter. Patient advised as well as his family that he could change his mind anytime just inform us if he does so. Disposition: To be determined. Charges/Coding Visit Charges Inpatient E&M: 03399 Subs Hosp L2 11/27/24 1201 <Electronically signed by Ochoa Johnson DO> Cosigner Signature (if applicable): CC: ~ Signed [facility] Work Phone: 1(502) 828-384208-28-2025 Consult note Author Pravin Jaime [facility] Note Date/Time November 26, 2024 3: 17pm [facility] Medical Records Department [address] [place] [address] Pharmacokinetic/Renal -Consult 11/26/24 1342 MR#: [id number] Acct: [id number] Name: KRUNAL LEOS Rep #:[id number] : 1965 59 From: Pravin Jaime PCP: Dr. Brandt Winter MD Status:ADM IN Y Location: [place] [address] Consult Antibiotic Management Pharmacy has been consulted to manage selected antibiotic: Vancomycin Type of Intervention Type of Consult: New start Suspected Infection Suspected Infection: Skin/Soft tissue Prior Doses of Antibiotics Prior Doses of Antibiotics Received/Current Regimen: Vancomycin 2000 mg IV x 1 given 11/26/24 @ 1210 Labs Labs: Sodium 135 mmol/L (133-145) 11/26/24 09:40 Potassium 3.8 mmol/L (3.3-5.1) 11/26/24 09:40 Chloride 96 mmol/L (98-108) L 11/26/24 09:40 Carbon Dioxide 23.3 mmol/L (21.0-32.0) 11/26/24 09:40 Anion Gap 15 (5-15) 11/26/24 09:40 BUN 42 mg/dL (4-19) H 11/26/24 09:40 Creatinine 2.06 mg/dL (0.70-1.20) H 11/26/24 09:40 Est GFR (MDRD) Non-Af 36 (>60) L 11/26/24 09:40 BUN/Creatinine Ratio 20.6 RATIO (10-20) H 11/26/24 09:40 Glucose 336 mg/dL (70-99) H 11/26/24 09:40 Microbiology Microbiology: Microbiology 11/26/24 09:55 Mucosa - Nose SARS-CoV-2, Influenza & RSV (PCR) - Final Dosing Weight Weight used for dosin kg Estimated Creatinine Clearance Estimated Creatinine Clearance: ~ 54 Goal Trough Goal Trough: 15-20 mcg/mL Pharmacy Plan for Drug Dosing Pharmacy Plan for Drug Dosing: Vancomycin 2000 mg IV x 1 followed by 1250 mg Q12H Pharmacy Service will continue to monitor and adjust dosing as required. Follow-Up Labs Follow-Up Labs: Trough: Vancomycin Date/Time Labs Ordered Labs to be done on [date and time ordered]: 11/27/24 @ 2330 11/26/24 1343 <Electronically signed by Pravin lang> Date _ Pravin Jaime 11/26/24 1517 <Electronically signed by Ochoa Johnson DO> Cosigner Signature (if applicable): Date Ochoa Johnson DO CC: ~ Signed [facility] Work Phone: 1(640) 213-261108-28-2025 History and physical note Author Ochoa Johnson [facility] Note Date/Time November 26, 2024 12 :33pm [facility] Medical Records Department [address] [place] [address] H&P Exam - Hospitalist 11/26/24 1209 MR#: [id number] Acct: [id number] Name: KRUNAL LEOS Rep #:[id number] : 1965 59 From: Ochoa Johnson DO PCP: Dr. Brandt Winter MD Status:REG ER Location: ED HPI - General General Date of Service: 11/26/24 Chief Complaint: Weakness HPI Narrative KRUNAL LEOS, is a 59 M with a history of pulmonary fibrosis presents with weakness. Weakness began earlier this morning where he was having difficulty walking to the bathroom and then get to the point where he just fell because he was so weak. At baseline he is limited no due to his pulmonary disease and doesrequire being put in a wheelchair for going to doctors visits and such. Over the past few days, he has noticed a boil on his right leg. Today feels much worse given the location, which is in his groin, he is not able to see it. He presented to the emergency room and was diagnosed with sepsis, received a liter of IV fluids as well as vancomycin and Zosyn. [facility] Medical History Hyperlipidemia Elevated troponin 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 with hyperglycemia Renal insufficiency Interstitial lung disease Ischemic cerebrovascular accident (CVA) CHF (congestive heart failure) Chronic respiratory failure with hypoxia KIANNA (obstructive sleep apnea) Presence of insulin pump CKD (chronic kidney disease) Hypothyroidism Essential (primary) hypertension Diabetes Acute hypoxemic respiratory failure Chronic diastolic CHF (congestive heart failure) Obesity Exertional shortness of breath Iron deficiency anemia due to chronic blood loss Current use of usp anticoagulation Morbid obesity with BMI of 45.0-49.9, adult Atherosclerotic heart disease of [place] coronary artery without angina pectoris Mini stroke [...] infarction (NSTEMI) (03/28/20) TIA (transient ischemic attack) (2019) Hodgkin disease GERD (gastroesophageal reflux disease) BPH (benign prostatic hyperplasia) Anxiety and depression Morbid obesity with BMI of 45.0-49.9, adult Nephrolithiasis Diabetes mellitus, type II Home Medications ?Medication ?Instructions ?Recorded ?Last Taken ?Type tamsulosin 0.4 mg capsule 0.4 mg PO DAILY prostate 12/1509/26/24 History duloxetine 60 mg capsule,delayed 60 mg PO DAILY depres wanda 04/17/18 09/26/24 History release (Cymbalta) 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,equity structurer,cont #1 ea 07/26/20 Unknown Rx (Dexcom G6 Rn Clinical) 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 transmitter (Dexcom #1 ea 12/29/21 Unkno wn Rx G6 Transmitter device) infusion set for insulin pump 10/08/22 Unknown Histor y insulin pump controller 10/08/22 Unknown History 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 sensor (Dexcom G6 #1 ea 02/25/23 Unknown Rx Sensor device) insulin regular hum U-500 conc 500 75 unit (0.15 mL) c ontinuous 11/11/23 09/26/24 Rx unit/mL subcutaneous soln (Humulin subcutaneous infusi on DAILY blood R U-500 (Concentrated) Insulin) sugar #20 mL ferrous sulfate 325 mg (65 mg 325 mg PO DAILY anemia 1 05/03/23 09/26/24 History iron) tablet (Feosol) amlodipine 5 mg tablet 5 mg PO QDAY blood pressure 03/13/24 09/26/24 History aspirin 325 mg tablet 325 mg PO DAILY heart health 03/13/24 09/26/24 History metoprolol succinate 100 mg 100 mg PO DAILY heart #90 tabs 03/27/24 09/26/24 Rx tablet,extended release 24 hr lisinopril 40 mg tablet 40 mg PO DAILY blood pressur e 04/12/24 09/26/24 History ticagrelor 90 mg tablet (Brilinta) 90 mg PO BID 09/26/24 History furosemide 40 mg tablet (Lasix) 40 mg PO BID diuretic #270 tabs 06/23/24 09/26/24 Rx pantoprazole 40 mg tablet,delayed 40 mg PO BID acid re flux #60 tabs 07/22/24 09/26/24 Rx release (Protonix) empagliflozin 25 mg tablet 25 mg PO DAILY diabetes #30 tabs 08/12/24 09/26/24 Rx (Jardiance) apixaban 5 mg tablet (Eliquis) 5 mg PO BID blood thinn er #180 tabs 08/31/24 09/26/24 Rx buspirone 10 mg tablet 10 mg PO BID Anxiety 09/16/ 5 09/26/24 History oxycodone-acetaminophen 5 mg-325 1 tab PO TID PRN pain 09/16/24 09/25/24 History mg tablet prednisone 5 mg tablet See Rx Instructions PO .COMP SOFY 09/16/24 09/26/24 History steriod fenofibrate 54 mg tablet 134 mg PO QDAY 10/27/24 Unkn own History rosuvastatin 40 mg tablet 40 mg PO QDAY #30 tabs 10/27 Unknown Rx albuterol sulfate 2.5 mg/3 mL 2.5 mg inhalation Q4H [place] N 11/25/24 Unknown History (0.083 %) solution for nebulization shortness of breat h or wheezing levothyroxine 125 mcg tablet 125 mcg PO QDAY 11/25/24 Unknown History pirfenidone 267 mg tablet 267 mg PO TID 11/25/24 Unkno wn History Allergy/AdvReac Type Severity Reaction Status Date / Time metoclopramide HCl (From Allergy Severe Anaphylaxis Verified 11/25/24 12:47 Reglan) Family History Brother Heart disease Mother [...] you participate in: none ROS ROS Narrative On oxygen 22/10. All review of systems were negative except as mentioned above in the history of present illness and the other review of systems. Vital Signs Vital Signs Vital Signs: 11/26/24 09:16 11/26/24 09:16 11/26/24 09:23 Temperature 36.6 C 36.6 C Temperature Source Oral Oral Pulse Rate 92 92 Respiratory Rate 27 H 27 H Respiratory Effort Normal Non-Labored Respiratory Pattern Tachypnea Blood Pressure 86/50 L 86/50 L Blood Pressure Mean 62 62 Pulse Ox 97 97 Oxygen Delivery Method Nasal Cannula Nasal Cannula Oxygen Flow Rate (L/min) 4 4 11/26/24 09:39 11/26/24 09:52 11/26/24 10:00 Temperature Temperature Source Pulse Rate 89 Respiratory Rate 23 H Respiratory Effort Respiratory Pattern Blood Pressure 80/56 L Blood Pressure Mean 63 Pulse Ox 98 Oxygen Delivery Method Nasal Cannula Oxygen Flow Rate (L/min) 11/26/24 10:00 11/26/24 10:15 11/26/24 10:26 Temperature 37.7 C H 37.8 C H Temperature Source Core Core Pulse Rate 88 88 Respiratory Rate 24 H 24 H Respiratory Effort Respiratory Pattern Blood Pressure 80/56 L 109/59 L 98/55 L Blood Pressure Mean 63 75 69 Pulse Ox 99 99 Oxygen Delivery Method Nasal Cannula Oxygen Flow Rate (L/min) 11/26/24 10:30 11/26/24 10:45 11/26/24 11:00 Temperature 37.9 C H 37.8 C H 37.8 C H Temperature Source Core Core Core Pulse Rate 91 86 81 Respiratory Rate 22 H 24 H 23 H Respiratory Effort Respiratory Pattern Blood Pressure 98/55 L 90/56 L 106/65 Blood Pressure Mean 69 67 78 Pulse Ox 100 100 100 Oxygen Delivery Method Oxygen Flow Rate (L/min) 11/26/24 11:15 11/26/24 11:30 11/26/24 11:45 Temperature 37.6 C H 37.4 C H 37.5 C H Temperature Source Core Core Core Pulse Rate 90 85 95 Respiratory Rate 23 H 18 26 H Respiratory Effort Respiratory Pattern Blood Pressure 109/66 104/60 99/88 H Blood Pressure Mean 79 74 93 Pulse Ox 96 100 99 Oxygen Delivery Method Oxygen Flow Rate (L/min) 11/26/24 11:54 11/26/24 12:00 Temperature 37.5 C H 37.5 C H Temperature Source Core Core Pulse Rate 86 92 Respiratory Rate 21 H 30 H Respiratory Effort Respiratory Pattern Blood Pressure 99/88 H 79/52 L Blood Pressure Mean 91 62 Pulse Ox 99 98 Oxygen Delivery Method Nasal Cannula Oxygen Flow Rate (L/min) 4 Weight Weight: 145.1 kg Body Mass Index (BMI) 47.2 Physical Exam Const Constitutional Narrative: Lying in bed. Comfortable. On oxygen. No respiratory distress. No conversational dyspnea. HEENT normocephalic, head/scalp atraumatic, hearing grossly normal bilaterally and moist oral mucous membranes Resp normal respiratory effort and no retractions Resp Narrative: Bibasilar crackles Cardio regular rate, regular rhythm, S1 normal heart sound and S2 normal heart sound GI normal to inspection, nondistended, normoactive bowel sounds, soft to palpation,non-tender and non-distended GI Narrative: Obese. Extremity Extremity Narrative: Nonpitting lower extremity edema. Neuro Neuro Narrative: Area of induration and erythema in the proximal medial right thigh. Does have aopen area that was raised and had some blood but not actively bleeding. Psych affect normal Results Lab / Micro Data Attestation: I reviewed the patient's lab results. 11/26/24 09:40 11/26/24 09:40 Labs: Laboratory Results - last 24 hr 11/26/24 09:40: WBC 18.7 H, RBC 4.14 L, Hgb 10.0 L, Hct 32.0 L, MCV 77.3 L, MCH 24.2 L, MCHC 31.3 L, RDW Std Deviation 51.3 H, RDW Coeff of Gavi 18.7 H, Plt Count 246, MPV 10.3, Immature Gran % (Auto) 1.100 H, Neut % (Auto) 76.5 H, Lymph% (Auto) 8.9 L, Wharton % (Auto) 12.8 H, Eos % (Auto) 0.4, Baso % (Auto) 0.3, Absolute Neuts (auto) 14.3 H, Absolute Lymphs (auto) 1.67, Nucleated RBC % 0, Platelet Estimate ADEQUATE, Ovalocytes 1+, Sodium 135, Potassium 3.8, Chloride 96 L, Carbon Dioxide 23.3, Anion Gap 15, BUN 42 H, Creatinine 2.06 H, Estim Creat Clear Calc 53.51, Est GFR (MDRD) Non-Af 36 L, BUN/Creatinine Ratio 20.6 H,Glucose 336 H, Lactic Acid 1.8, Calcium 9.1, Total Bilirubin 0.71, AST 13, ALT 18, Alkaline Phosphatase 58, Troponin T High Sens 59 H* D, Total Protein 7.2, Albumin 3.7, Globulin 3.5, Albumin/Globulin Ratio 1.1 11/26/24 09:50: Urine Color Yellow, Urine Clarity Clear, Urine pH 6.0, Ur Specific [place] 1.015, Urine Protein 15 H, Urine Glucose (UA) 1000 H, Urine Ketones Negative, Urine Occult Blood Negative, Urine Nitrite Negative, Urine Bilirubin Negative, Urine Urobilinogen Normal, Ur Leukocyte Esterase Negative, Urine RBC 0 SEEN, Urine WBC 0 SEEN, Ur Squamous Epith Cells 0-5 SEEN, Urine Bacteria 0 SEEN, Urine Mucus 0 SEEN Micro: Microbiology 11/26/24 09:55 Mucosa - Nose SARS-CoV-2, Influenza & RSV (PCR) - Final ABG Data ABG results: ABG 11/26/24 10:34 Specimen Type JOSHUA Sample Site Not entered VBG pH 7.44 H VBG pO2 40 VBG HCO3 25 VBG Total CO2 26 VBG O2 Sat (Calc) 77 H VBG Base Excess 1 POC Mix VBG pCO2 Pt Tmp 37.0 L O2 Delivery Device Not entered EKG Initial EKG: Attestation: I personally reviewed and interpreted this EKG as follows: Prior EKG tracings: available for review EKG Rhythm Intrepretation: Sinus Rhythm (LVH) Imaging Radiology Impression Brain CT 11/26/24 09:38 IMPRESSION: There is low-density in the deep white matter in the right and left, likely chronic ischemic change, similar to the prior. There is a 1.5 cm mucous retention cyst in the left maxillary sinus, unchanged. There is fluid density in a portion of the left mastoid air cells, similar to the prior. There is no visible acute traumatic injury. Reading Location: [facility] Cervical Spine CT 11/26/24 09:38 IMPRESSION: DEGENERATIVE CHANGES OF THE CERVICAL SPINE. NO EVIDENCE OF SIGNIFICANT OSSEOUS CENTRAL CANAL OR NEURAL FORAMINAL STENOSIS. Reading Location: [id number] Chest X-Ray 11/26/24 09:38 IMPRESSION: Examination limited by hypoinflation, as well as extensive patient motion, particularly on both lateral views. No gross acute pneumonic process is noted. Probable chronic lung changes. No pleural effusion or pneumothorax is seen. The cardiomediastinal silhouette is stable, without evidence of cardiomegaly. Generalized osteopenia is present. Mild thoracic spine degenerative changes are seen, along with DISH. No acute osseous process is identified. Reading Location: [facility] Pelvis X-Ray 11/26/24 09:38 IMPRESSION: Degenerative changes are again seen of the visualized lower lumbar spine. Sacroiliac joints appear symmetric and within the normal range for age. Mild asymmetric right hip joint degenerative changes are seen, with mild superolateral joint narrowing. No evidence of femoral head osteonecrosis. No acute fracture or dislocation is seen. If clinical concern persists, short-term follow-up imaging may be obtained to rule out a currently occult fracture. Reading Location: [facility] Assessment & Plan Assessment/Plan (1) Sepsis: PLAN: Present on arrival. qSOFA of 2 with hypertension and tachypnea. Secondary to right lower extremity cellulitis. Patient did not receive 30 cc/kg of IV fluid given his history of heart failure and concern for worsening respiratory distress given large quantity of fluid thepatient would require. Complicated by the fact the patient does take steroids chronically for his pulmonary fibrosis. Most recently has been weaned down to 15 mg daily of prednisone. May have a component of adrenal insufficiency in light of the acuteinfection so patient will receive a one-time dose of hydrocortisone 100 mg todayand then will start prednisone 40 mg daily starting on the and then would anticipate taper down to 15 mg. (2) Cellulitis: PLAN: Right lower extremity in the groin. Adjacent to the scrotum but no evidence of any Jesús's gangrene. Vancomycin and pip-tazo (3) Debility: PLAN: Patient is a wheelchair-bound for trips such as to the doctor's office. Does able to go to his own bathroom however. But given the relatively limited performance status, will consult PT OT evaluate and treat to see, with when the patient is ready for discharge if he would be stable for home or if you may require additional therapy resources. PLAN: Plan Chronic conditions * Chronic respiratory failure secondary pulmonary fibrosis: Currently stable at this time. Patient to follow-up with his transport medic as outpatient. Patient takes pirfenidone for his pulmonary fibrosis as a trial. Pulmonary has told the family for that medication to be held until he is discharged. Patient on steroids with prednisone. Please see above for further details. * Diabetes mellitus type 2: Does use an insulin pump but not working currently will put him on 30 units of glargine twice daily plus a sliding scale insulin. Check an A1c. Continue with empagliflozin * HFpEF. Appears compensated at this time. Hold furosemide given the sepsis at this time. * Hypertension: Meds with hold parameters but will hold lisinopril and furosemide for now. * Obesity class III: Complicates care and recovery * BPH: Continue tamsulosin * History of CVA: Continue with aspirin and ticagrelor. In the patient is already on apixaban as well, will change his aspirin from 3 25-81 daily. VTE prophylaxis: Not indicated as patient is already on apixaban CODE STATUS: Addressed with patient. Initially patient stated that he would want to have CPR but would not want to be put on ventilator. When I discussed with he and his family that I would recommend he either be full code or DNR Comfort Care arrest no intubation. He chose the latter. Patient advised as well as his family that he could change his mind anytime just inform us if he does so. Charges/Coding Visit Charges Inpatient E&M: 89318 Init Hosp L3 11/26/24 1233 <Electronically signed by Ochoa Johnson DO> Cosigner Signature (if applicable): CC: Dr. Brandt Winter MD; Dr. Ochoa Johnson DO; Rosalino Padron~ Signed [facility] Work Phone: [phone] 168-821808-28-2025 Discharge summary Author Betina Martinez [facility] Note Date/Time November 26, 2024 12 :18pm [facility] Medical Records Department [address] [place] [address] Emergency Department Summary 11/26/24 MR#: [id number] Acct: [id number] Name: KRUNAL LEOS Rep #:[id number] : 1965 59 From: Betina Martinez MD PCP: Dr. Brandt Winter MD Status:REG ER Location: ED HPI History of Present Illness Chief Complaint: Weakness Narrative Narrative: Patient is a 59-year-old male presenting to the emergency department for generalized weakness. Patient has a past medical history of an acute right MCA stroke, CKD, diabetes, CHF, hypoxia on baseline 4 L nasal cannula at rest and 8 L nasal cannula with activity. Patient states yesterday he was feeling at baseline. Reports that last night in the middle of the night he felt very weak overall. States this morning he tried to get up and felt so weak that he fell to the ground. Reports that he landed mainly on his right hip. Denies any his head or any loss of consciousness. He is on oral anticoagulation. He denies fever, chest pain, shortness of breath, abdominal pain, nausea, vomiting, diarrhea, dysuria or hematuria. Reports some chills. Denies any focal weaknessor numbness. Denies any speech difficulty or visual changes. He does have left-sided minor facial droop is a deficit from prior stroke. 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 Morbid obesity with BMI of 45.0-49.9, adult Atherosclerotic heart disease of [place] coronary artery without angina pectoris Mini stroke [...] infarction (NSTEMI) (03/28/20) TIA (transient ischemic attack) (2019) Hodgkin disease GERD (gastroesophageal reflux disease) BPH (benign prostatic hyperplasia) Anxiety and depression Morbid obesity with BMI of 45.0-49.9, adult Nephrolithiasis Diabetes mellitus, type II Home Medications ?Medication ?Instructions ?Recorded ?Last Taken ?Type tamsulosin 0.4 mg capsule 0.4 mg PO DAILY prostate 12/1509/26/24 History duloxetine 60 mg capsule,delayed 60 mg PO DAILY depres wanda 04/17/18 09/26/24 History release (Cymbalta) 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,equity structurer,cont #1 ea 07/26/20 Unknown Rx (Dexcom G6 Rn Clinical) 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 transmitter (Dexcom #1 ea 12/29/21 Unkno wn Rx G6 Transmitter device) infusion set for insulin pump 10/08/22 Unknown Histor y insulin pump controller 10/08/22 Unknown History 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 sensor (Dexcom G6 #1 ea 02/25/23 Unknown Rx Sensor device) insulin regular hum U-500 conc 500 75 unit (0.15 mL) c ontinuous 11/11/23 09/26/24 Rx unit/mL subcutaneous soln (Humulin subcutaneous infusi on DAILY blood R U-500 (Concentrated) Insulin) sugar #20 mL ferrous sulfate 325 mg (65 mg 325 mg PO DAILY anemia 1 05/03/23 09/26/24 History iron) tablet (Feosol) amlodipine 5 mg tablet 5 mg PO QDAY blood pressure 03/13/24 09/26/24 History aspirin 325 mg tablet 325 mg PO DAILY heart health 03/13/24 09/26/24 History metoprolol succinate 100 mg 100 mg PO DAILY heart #90 tabs 03/27/24 09/26/24 Rx tablet,extended release 24 hr lisinopril 40 mg tablet 40 mg PO DAILY blood pressur e 04/12/24 09/26/24 History ticagrelor 90 mg tablet (Brilinta) 90 mg PO BID 09/26/24 History furosemide 40 mg tablet (Lasix) 40 mg PO BID diuretic #270 tabs 06/23/24 09/26/24 Rx pantoprazole 40 mg tablet,delayed 40 mg PO BID acid re flux #60 tabs 07/22/24 09/26/24 Rx release (Protonix) empagliflozin 25 mg tablet 25 mg PO DAILY diabetes #30 tabs 08/12/24 09/26/24 Rx (Jardiance) apixaban 5 mg tablet (Eliquis) 5 mg PO BID blood thinn er #180 tabs 08/31/24 09/26/24 Rx buspirone 10 mg tablet 10 mg PO BID Anxiety 5 09/26/24 History oxycodone-acetaminophen 5 mg-325 1 tab PO TID PRN pain 09/16/24 09/25/24 History mg tablet prednisone 5 mg tablet See Rx Instructions PO .COMP SOFY 09/16/24 09/26/24 History steriod fenofibrate 54 mg tablet 134 mg PO QDAY 10/27/24 Unkn own History rosuvastatin 40 mg tablet 40 mg PO QDAY #30 tabs 10/27 Unknown Rx albuterol sulfate 2.5 mg/3 mL 2.5 mg inhalation Q4H [place] N 11/25/24 Unknown History (0.083 %) solution for nebulization shortness of breat h or wheezing levothyroxine 125 mcg tablet 125 mcg PO QDAY 11/25/24 Unknown History pirfenidone 267 mg tablet 267 mg PO TID 11/25/24 Unkno wn History Allergy/AdvReac Type Severity Reaction Status Date / Time metoclopramide HCl (From Allergy Severe Anaphylaxis Verified 11/25/24 12:47 Reglan) Family History Brother Heart disease Mother [...] you participate in: none ROS ROS ED ROS Narrative see HPI EXAM Physical Exam Narrative Exam Narrative: Vital signs: Reviewed General: Alert and oriented x 3. No acute distress. Chronically ill-appearing HEENT: Head is normocephalic and atraumatic, sinuses nontender, pupils equal round and reactive. Nares are patent. Oropharynx and throat exams normal. Neck: Supple without lymphadenopathy nontender. No midline cervical spinal tenderness to palpation. No step-offs or deformities. Cardiovascular: Regular rate and rhythm, no murmurs. No rubs or gallops. Normal S1 and S2 Respiratory: Clear to auscultation bilaterally. No wheezes, rales, rhonchi. Onbaseline 4 L nasal cannula Abdominal: Soft and nontender. Normal bowel sounds. No guarding or rebound. Nonsurgical abdomen Extremities: No tenderness. No bruising. Normal range of motion. Normal sensation. Skin: No rash or redness. Neurological: Cranial nerves II through XII are grossly intact. Normal strengthand sensation. Normal cerebellar function The rest of the physical exam is unremarkable Const Vital Signs: 11/26/24 09:16 11/26/24 09:16 11/26/24 09:23 Temperature 97.9 F 97.9 F Temperature Source Oral Oral Pulse Rate 92 92 Respiratory Rate 27 H 27 H Respiratory Effort Normal Non-Labored Respiratory Pattern Tachypnea Blood Pressure 86/50 L 86/50 L Blood Pressure Mean 62 62 Pulse Ox 97 97 Oxygen Delivery Method Nasal Cannula Nasal Cannula Oxygen Flow Rate (L/min) 4 4 11/26/24 09:39 11/26/24 09:52 11/26/24 10:00 Temperature Temperature Source Pulse Rate 89 Respiratory Rate 23 H Respiratory Effort Respiratory Pattern Blood Pressure 80/56 L Blood Pressure Mean 63 Pulse Ox 98 Oxygen Delivery Method Nasal Cannula Oxygen Flow Rate (L/min) 11/26/24 10:00 11/26/24 10:15 11/26/24 10:26 Temperature 99.9 F H 100.1 F H Temperature Source Core Core Pulse Rate 88 88 Respiratory Rate 24 H 24 H Respiratory Effort Respiratory Pattern Blood Pressure 80/56 L 109/59 L 98/55 L Blood Pressure Mean 63 75 69 Pulse Ox 99 99 Oxygen Delivery Method Nasal Cannula Oxygen Flow Rate (L/min) 11/26/24 10:30 11/26/24 10:45 11/26/24 11:00 Temperature 100.2 F H 100.0 F H 100.0 F H Temperature Source Core Core Core Pulse Rate 91 86 81 Respiratory Rate 22 H 24 H 23 H Respiratory Effort Respiratory Pattern Blood Pressure 98/55 L 90/56 L 106/65 Blood Pressure Mean 69 67 78 Pulse Ox 100 100 100 Oxygen Delivery Method Oxygen Flow Rate (L/min) 11/26/24 11:15 11/26/24 11:30 11/26/24 11:45 Temperature 99.6 F H 99.4 F H 99.5 F H Temperature Source Core Core Core Pulse Rate 90 85 95 Respiratory Rate 23 H 18 26 H Respiratory Effort Respiratory Pattern Blood Pressure 109/66 104/60 99/88 H Blood Pressure Mean 79 74 93 Pulse Ox 96 100 99 Oxygen Delivery Method Oxygen Flow Rate (L/min) 11/26/24 11:54 11/26/24 12:00 Temperature 99.5 F H 99.5 F H Temperature Source Core Core Pulse Rate 86 92 Respiratory Rate 21 H 30 H Respiratory Effort Respiratory Pattern Blood Pressure 99/88 H 79/52 L Blood Pressure Mean 91 62 Pulse Ox 99 98 Oxygen Delivery Method Nasal Cannula Oxygen Flow Rate (L/min) 4 NIHSS NIHSS stroke assessment: 1a Level of Consciousness: 0 1b LOC Questions (Score 2 if aphasic/stupor): 0 1c LOC Commands (Only score 1st attempt): 0 2 Best Gaze (If aphasic, use reflexive mvmts.): 0 3 Visual: 0 4 Facial Palsy: 1 (Residual deficit from prior stroke) 5 Motor Arm Right (UN = amputation/fusion): 0 5 Motor Arm Left: 0 6 Motor Leg Right: 0 6 Motor Leg Left: 0 7 Limb ataxia (Only + if out of proportion): 0 8 Sensory (Aphasia/stupor=0 or 1, coma=2): 0 9 Best Language: 0 10 Dysarthria (mute, coma=2, intubated=UN): 0 11 Extinction and Inattention (only scored if +): 0 Total Score: 1 MDM MDM MDM Narrative Medical decision making narrative: Patient is a 59-year-old male presenting to the emergency department for generalized weakness. He was seen and examined. Initial blood pressure of 86/50. Patient mentating normally. Mildly tachypneic on initial evaluation. He is on his baseline 4 L nasal cannula. Afebrile on arrival. Differential includes but is not limited to: Pneumonia, UTI, viral illness, ACS,less likely intraabdominal source of infection no abdominal pain, nausea, vomiting, diarrhea CBC with leukocytosis of 18.7 which is mildly increased from his baseline however he is on chronic prednisone. Lactate normal at 1.8. BMP with baseline CKD. Glucose of 336, no anion gap, normal bicarb. VBG with no acidosis. No DKA. Troponin of 59. Baseline in the 40s. will trend. Urinalysis with no evidence of infection. Viral swab negative. CT brain with no acute changes. CTcervical spine, chest x-ray, pelvis x-ray with no acute traumatic findings. No opacities or pneumothorax on chest x-ray. EKG with sinus rhythm with occasionalPVC. LVH. No ischemic changes. No dysrhythmia. Unknown source of infection at this time however with initial hypotension, tachycardia no febrile here, Tylenol and patient having Zosyn given. Patient will require admission for further management workup. Patient is agreeable. Admitted to Dr. Johnson for further management. Clinical impression: Sepsis of unknown origin leukocytosis weakness fall History & Record Review Discussion w/independent historian: Patient Additional record(s) reviewed:: Prior inpatient record and Prior ED visit Lab Data Attestation: I reviewed the patient's lab results. Labs: Laboratory Results - last 24 hr 11/26/24 11/26/24 09:40 09:50 WBC 18.7 H RBC 4.14 L Hgb 10.0 L Hct 32.0 L MCV 77.3 L MCH 24.2 L MCHC 31.3 L RDW Std Deviation 51.3 H RDW Coeff of Gavi 18.7 H Plt Count 246 MPV 10.3 Immature Gran % (Auto) 1.100 H Neut % (Auto) 76.5 H Lymph % (Auto) 8.9 L Wharton % (Auto) 12.8 H Eos % (Auto) 0.4 Baso % (Auto) 0.3 Absolute Neuts (auto) 14.3 H Absolute Lymphs (auto) 1.67 Nucleated RBC % 0 Platelet Estimate ADEQUATE Ovalocytes 1+ Sodium 135 Potassium 3.8 Chloride 96 L Carbon Dioxide 23.3 Anion Gap 15 BUN 42 H Creatinine 2.06 H Estim Creat Clear Calc 53.51 Est GFR (MDRD) Non-Af 36 L BUN/Creatinine Ratio 20.6 H Glucose 336 H Lactic Acid 1.8 Calcium 9.1 Total Bilirubin 0.71 AST 13 ALT 18 Alkaline Phosphatase 58 Troponin T High Sens 59 H* D Total Protein 7.2 Albumin 3.7 Globulin 3.5 Albumin/Globulin Ratio 1.1 Urine Color Yellow Urine Clarity Clear Urine pH 6.0 Ur Specific [place] 1.015 Urine Protein 15 H Urine Glucose (UA) 1000 H Urine Ketones Negative Urine Occult Blood Negative Urine Nitrite Negative Urine Bilirubin Negative Urine Urobilinogen Normal Ur Leukocyte Esterase Negative Urine RBC 0 SEEN Urine WBC 0 SEEN Ur Squamous Epith Cells 0-5 SEEN Urine Bacteria 0 SEEN Urine Mucus 0 SEEN ABG Data ABG results: ABG 11/26/24 10:34 Specimen Type JOSHUA Sample Site Not entered VBG pH 7.44 H VBG pO2 40 VBG HCO3 25 VBG Total CO2 26 VBG O2 Sat (Calc) 77 H VBG Base Excess 1 POC Mix VBG pCO2 Pt Tmp 37.0 L O2 Delivery Device Not entered Radiography Chest X-Ray - ED: 2 View, Read by ED Physician, Normal, No Acute Disease and No Infiltrates X-Ray: Right Hip, Left Hip, Read by ED Physician and No Fracture Diagnostic Testing: Clinical Impression(s) from Imaging Studies Brain CT 11/26/24 09:38 IMPRESSION: There is low-density in the deep white matter in the right and left, likely chronic ischemic change, similar to the prior. There is a 1.5 cm mucous retention cyst in the left maxillary sinus, unchanged. There is fluid density in a portion of the left mastoid air cells, similar to the prior. There is no visible acute traumatic injury. Reading Location: [facility] Cervical Spine CT 11/26/24 09:38 IMPRESSION: DEGENERATIVE CHANGES OF THE CERVICAL SPINE. NO EVIDENCE OF SIGNIFICANT OSSEOUS CENTRAL CANAL OR NEURAL FORAMINAL STENOSIS. Reading Location: [id number] Chest X-Ray 11/26/24 09:38 IMPRESSION: Examination limited by hypoinflation, as well as extensive patient motion, particularly on both lateral views. No gross acute pneumonic process is noted. Probable chronic lung changes. No pleural effusion or pneumothorax is seen. The cardiomediastinal silhouette is stable, without evidence of cardiomegaly. Generalized osteopenia is present. Mild thoracic spine degenerative changes are seen, along with DISH. No acute osseous process is identified. Reading Location: [facility] Pelvis X-Ray 11/26/24 09:38 IMPRESSION: Degenerative changes are again seen of the visualized lower lumbar spine. Sacroiliac joints appear symmetric and within the normal range for age. Mild asymmetric right hip joint degenerative changes are seen, with mild superolateral joint narrowing. No evidence of femoral head osteonecrosis. No acute fracture or dislocation is seen. If clinical concern persists, short-term follow-up imaging may be obtained to rule out a currently occult fracture. Reading Location: [place] [address] Discharge Plan Triage Chief Complaint: Weakness ED Provider: Betina Martinez Dx/Rx/DC Orders Prescriptions: No Action (DME) Dexcom G6 Rn Clinical Misc See Rx Instructions .ROUTE .MEDSUPPLY Qty: 1 0RF Rx Instructions: As directed (DME) infusion set for insulin pump Infusion Set See Rx Instructions .Route Rx Instructions: As directed (DME) insulin pump controller Misc See Rx Instructions .Route Rx Instructions: As directed aspirin 325 mg tablet 325 mg PO DAILY Patient Comments: coated amlodipine 5 mg tablet 5 mg PO QDAY prednisone 5 mg tablet See Rx Instructions PO .COMPLEX Rx Instructions: patient currently taking 15mg daily. tapers down to 10mg daily starting 10/07/24 oxycodone-acetaminophen 5-325 mg tablet 1 tab PO TID PRN (Reason: pain) fenofibrate 54 mg tablet 134 mg PO QDAY rosuvastatin 40 mg tablet 40 mg PO QDAY Qty: 30 11RF Brilinta 90 mg tablet 90 mg PO BID albuterol sulfate 2.5 mg /3 mL (0.083 %) solution for nebulization 2.5 mg inhalation Q4H PRN (Reason: shortness of breath or wheezing) levothyroxine 125 mcg tablet 125 mcg PO QDAY pirfenidone 267 mg tablet 267 mg PO TID tamsulosin 0.4 MG capsule 0.4 mg PO DAILY duloxetine [Cymbalta] 60 MG capsule,delayed release(DR/EC) 60 mg PO DAILY buspirone 10 mg tablet 10 mg PO BID ferrous sulfate [Feosol] 325 mg (65 mg iron) tablet 325 mg PO DAILY lisinopril 40 mg tablet 40 mg PO DAILY (DME) Dexcom G6 Transmitter Device [...] MD [Primary Care Provider] - Print Language: Italian What to do if you have Problems For any increased pain, shortness of breath, bleeding, nausea or vomiting, chestpain, or any unexpected problems, contact your Primary Care Provider. Call [facility] ([phone]) or report to the closest Emergency Room. Call 911 if necessary. 11/26/24 1218 <Electronically signed by Betina Martinez MD> Cosigner Signature (if applicable): CC: Dr. Brandt Winter MD ~ Signed [facility] Work Phone: 1(192) 322-749208-28-2025 Radiology Diagnostic study [facility]08-28-2025 Radiology Diagnostic study [facility]08-28-2025 Radiology Diagnostic study [facility] 11-26-2024 Radiology Diagnostic study [facility]08-21-2025 Discharge summary Author Amanda Devlin [facility] Note Date/Time November 19, 2024 7: 00pm [facility] Occupational Therapy [facility] [address] [place] [address]. [address] [place] [address] / REHABILITATION SERVICES DISCHARGE SUMMARY MR#: [id number] Acct: [id number] Name: KRUNAL LEOS Rep #: [id number] : 1965 59 From: Amanda Devlin Referring Dr.: Dr. Karina Benítez DO Status: REG RCR Eval Date: Discharge Date: Discharge Summary D/C Summary: It has been my pleasure to treat KRUNAL LEOS under orders from Dr. Karina Benítez DO, for the diagnosis of TIA for a total of 5 visit(s). Please see the following information for a summary of their discharge status. Overall Improvement % Improvement: 60 Goals Patient Goals: Use Hand/Wrist/Arm Normally Again and Resume Former Household Responsibilities (Cooking,Cleaning,Yard, etc.) Goal:: pt will demo a increase in left director operations broadcast strength by 10# to increase pts ind.with ADLS by d/c L 90# R 105# Goal:: pt will demo a decrease on left handed 9-hole peg test by 5 sec. to indicate increase in FMS by d.c L hand 32 sec R hand 24 sec Goal:: pt will demo understanding of using AD ex. and energy conservation juanita. by end of 3 rd visit. to decrease SOB. goal met pt will report increase IND with donning coat by d.c min a pt will report the ability to hold water bottle with left hand without dropping by d.c goal met Goal:: pt will demo SpO2 levels above 90% when performing UB ex. goal met Pt demo know of use of energy conservation juanita. by end of 2nd session goal met Plan Plan: Continue POC: 4 weeks (1-2x week) D/C Information Discharge Comments: this 59 year olf male seen in OT dx of stroke for improved strength and training in EC techniques pt progress in POC and discharge this date with plan to continue exercises at home while monitoring 02 d/c sentence: If there are questions or concerns regarding this patient's occupational therapy, please fell free to call me at [phone]. Thank you for the referral of this patient. Sincerely, Amanda Devlin <Electronically signed by Amanda Devlin> 11/19/24 1426 CC: Dr. Brandt Winter MD; Dr. Karina Benítez, DO ~ CK Signed [facility] Work Phone: 1(813) 693-131108-15-2025 History of Present illness Narrative* Rosalino Padron MD - 11/13/2024 1:00 PM EDT Images from the original note were not included. Department of Medicine Division of Pulmonary, Critical Care, and Sleep Medicine Consultation [address] [facility] Patient was referred by his PCP (Dr. [...] had repeat breathing test, 6MWT (results below). 11/13/2024: Since the last visit, patient's breathing is mostly unchanged. Slowly progressing . Currently up to 10L with exertion and 4L at rest. S/p bronch (results below). Day after had TIAs. On prednisone 20mg. Prior Pulmonary History: Patient has no history of recurrent infections, or lung disease as a child. S/p Left video-assistedthoracoscopic surgery total pulmonary decortication in 2015 at [facility]. He was hospitalized in [place] from 03/02-03/04/2024 for acute hypoxic respiratory failure. [...] LA, RV size and function Lung biopsy: 09/24/2024 Three fragments of alveolated parenchyma with temporally heterogeneous interstitial changes. Two fragments with preserved architecture; one fragment shows interstitial fibrosis with cysticremodeling. Rare fibroblastic foci present, pneumocytes with reactive changes. Overall findings suggest a chronic fibrosing interstitial pneumonia, most consistent with usual interstitial pneumonia (UIP). Relevant labs: Elevated RF at OSH 07/23/2024 [...] Review Audit Reviewed by Suly Johnston MA ([employer]) on 11/13/24 at 1302 Medication Order Taking? Sig Documenting Provider Last Dose Status albuterol 90 mcg/actuation inhaler [id number] Yes INHALE 2 PUFFS BY MOUTH EVERY 4 HOURS NEEDED FOR SHORTNESS OF BREATH OR WHEEZING Historical ProviderMD Active amLODIPine (Norvasc) 5 mg tablet [id number] Yes Take 1 tablet (5 mg) by mouth once daily. HistoricalProMD frank Active aspirin 325 mg tablet [id number] Yes Take 1 tablet (325 mg) by mouth once daily. Historical Provider, Active atorvastatin (Lipitor) 80 mg tablet [id number] Yes Take 1 tablet (80 mg) by mouth once daily at bedtime. Historical Provider, Active betamethasone, augmented, (Diprolene) 0.05 % lotion [id number] Yes Historical Provider, Active bismuth subsalicylate (Pepto Bismol) 262 mg chewable tablet [id number] Yes Historical Provider, Active Brilinta 90 mg tablet [id number] Yes 1 tablet (90 mg). Historical ProviderMD Active busPIRone (Buspar) 10 mg tablet [id number] Yes Take 1 tablet (10 mg) by mouth 3 times a day. Historical Provider, Active clopidogrel (Plavix) 75 mg tablet [id number] Take 1 tablet (75 mg) by mouth early in the morning.. Historical ProviderMD Active dapagliflozin propanediol (Farxiga) 5 mg [id number] Take 1 tablet (5 mg) by mouth once daily. Historical ProviderMD Active Dexcom G6 Sensor device [id number] Yes USE DIRECTED FOR CONTINUOUS BLOOD GLUCOSE MONITORING, CHANGE SENSOR EVERY 10 DAYS Historical ProviderMD Active DULoxetine (Cymbalta) [address] capsule [id number] Yes Take 1 capsule (60 mg) by mouth once daily. Historical Provider, Active Eliquis 5 mg tablet [id number] Yes Take 1 tablet (5 mg) by mouth 2 times a day. Historical ProviderMD Active ergocalciferol (Vitamin D-2) 1250 mcg (50,000 units) capsule [id number] Take 1 capsule (1,250 mcg) by mouth. Historical ProviderMD Active fenofibrate (Tricor) 54 mg tablet [id number] Yes Take 1 tablet (54 mg) by mouth once daily. Historical ProviderMD Active furosemide (Lasix) 40 mg tablet [id number] Yes Take 1 tablet (40 mg) by mouth. Gloria Rahman MD Active glimepiride (Amaryl) 4 mg tablet [id number] Yes Take 1 tablet (4 mg) by mouth early in the morning..Gloria Rahman MD Active glipiZIDE (Glucotrol) 5 mg tablet [id number] Yes Take 1 tablet (5 mg) by mouth. Gloria Rahman MD Active HumuLIN R U-500, Conc, Insulin 500 unit/mL CONCENTRATED injection [id number] Yes Historical ProviderMD Active Jardiance 25 mg [id number] Yes Take 1 tablet (25 mg) by mouth once daily. Gloria Rahman MD Active levothyroxine (Synthroid, Levoxyl) 112 mcg tablet [id number] Yes Take 1 tablet (112 mcg) by mouth once daily. Gloria Rahman MD Active lisinopril 40 mg tablet [id number] Yes Take 1 tablet (40 mg) by mouth once daily. Gloria Rahman MD Active metFORMIN (Glucophage) 500 mg tablet [id number] Take 1 tablet (500 mg) by mouth 2 times daily (morning and late afternoon). Historical MD Lacey Active metoprolol succinate XL (Toprol-XL) 100 mg 24 hr tablet [id number] Yes TAKE 1 TABLET BY MOUTH DAILY for heart Historical MD Lacey Active Mucinex DM 60-1,200 mg tablet extended release 12 hr [id number] Take 1 tablet by mouth every 12 hours. Gloria Rahman MD Active oxyCODONE-acetaminophen (Percocet) 5-325 mg tablet [id number] Yes Take 1 tablet by mouth 2 times a day as needed. Gloria Rahman MD Active pantoprazole (ProtoNix) 40 mg EC tablet [id number] Yes Take 1 tablet (40 mg) by mouth. Gloria Rahman MD Active potassium citrate CR (Urocit-K-10) 10 mEq ER tablet [id number] Yes Take 1 tablet (10 mEq) by mouth twice a day. Gloria Rahman MD Active predniSONE (Deltasone) 20 mg tablet [id number] Take 0.5 tablets (10 mg) by mouth early in the morning.. Gloria Rahman MD Active predniSONE (Deltasone) 20 mg tablet [id number] Yes Take 2 tablets (40 mg) by mouth once daily. Rosalino Padron MD Active predniSONE (Deltasone) 5 mg tablet [id number] Yes Take 4 tablets (20 mg) by mouth once daily for 30 days, THEN 3 tablets (15 mg) once daily for 30 days, THEN 2 tablets (10 mg) once daily for 30 days, THEN 1 tablet (5 mg) once daily for 14 days. Rosalino Padron MD Active spironolactone (Aldactone) 50 mg tablet [id number] Yes Take 1 tablet (50 mg) by mouth once daily. Historical Provider, Active tamsulosin (Flomax) 0.4 mg 24 hr capsule [id number] Yes Take 1 capsule (0.4 mg) by mouth once daily.Historical Provider, Active traMADol (Ultram) 50 mg tablet [id number] Take 1 tablet (50 mg) by mouth. Historical Provider, Active Drug Allergies/Intolerances: Allergies Allergen Reactions Metoclopramide Anaphylaxis and Shortness of breath Review of Systems: All other review of systems are negative and/or non-contributory. Physical Examination: Vitals: 11/13/24 1301 BP: 114/69 Pulse: 74 Temp: 36.1 C (97 F) SpO2: 98% Constitutional: Alert and oriented. [...] -Vaccinations per his pcp -Home evaluation for mold completed and negative -s/p cryobx on 09/24/2024 Three fragments of alveolated parenchyma with temporally heterogeneous interstitial changes. Two fragments with preserved architecture; one fragment shows interstitial fibrosis with cystic remodeling. Rare fibroblastic foci present, pneumocytes with reactive changes. Overall findings suggest a chronic fibrosing interstitial pneumonia, most consistent with usual interstitial pneumonia (UIP). Will submit prior auth for Esbriet # Prednisone therapy: Ordered on 08/07/2024. He felt well on 20mg daily. We will prescribed 20mg for 1 month, 15mg for 1month, 10mg for 1 month, then 5 mg for 2 weeks then stop. Weaning off given UIP on biopsy # Diastolic Heart failure and PAH evaluation: [...] months once above completed Rosalino Padron MD 11/13/2024 documented in this [facility] Work Phone: [phone] Instructions* Patient Instructions* Rosalino Padron MD - 11/13/2024 1:00 PM EDT Krunal Leos it was pleasure seeing you in clinic today. We discussed the following: You will call back to schedule your pulmonary rehab You will continue to use your incentive spirometer at home You will continue your prednisone taper like we discussed. You will go down to 15mg daily for 12 weeks and 10mg until your next follow up. You will watch for signs of prednisone withdrawal which are as follow: loss of appetite, abdominal pain, nausea, vomiting, diarrhea, extreme fatigue, weakness, lightheadedness, body aches, and a drop in your blood pressure. If any of these symptoms occur, you will take an extra dose of the prednisone and call my office immediately We will submit your paperwork for Esrajesh. You need a blood draw for your liver function test aheadof time. We will see you back in clinic in 4-6 weeks with repeat breathing test and walking test. For scheduling purposes: Call [phone] to schedule a breathing or a walking test Call [phone] to schedule EKG's, Echocardiograms and Cardiopulmonary Stress Tests. Call [phone] to schedule Radiology tests such as Nuclear Medicine Stress Tests, CT Scans, and MRI's. Should you have any questions Please Call our pulmonary nurse Linda Marie at [phone] or my rehab care assistant Puneet Leone at [phone] documented in this [facility] Work Phone: [phone] 621-260008-05-2025 Progress note Author Rito Lundberg [facility] Note Date/Time November 03, 2024 2:1 4pm [facility] [place] [address] [place] [address] OFFICE VISIT Date of Service: 11/03/24 1331 MR#: [id number] Acct: [id number] Name: KRUNAL LEOS Rep #: [id number] : 1965 From: Rito alvarez MD Age/Sex: 59/M Location: [facility] Status: Signed HPI Subjective Date of Service 11/03/24 Chief Complaint Anemia History of Present Illness 59-year-old gentleman with a chronic anemia, initially normocytic and more recently microcytic, with documented iron deficiency in July 2023 with a low serum ferritin. He has had intermittently noted bright red blood per rectum and the ball and on the toilet paper and presumed it is from hemorrhoids. He is on triple anticoagulant therapy (Eliquis, aspirin and Plavix) for cerebrovascular disease. March 2024 EGD: Impression: - No gross lesions in the entire esophagus. - One gastric polyp. Resected and retrieved. - Normal fourth portion of the duodenum. March 2024 colonoscopy: Impression: - Diverticulosis in the sigmoid colon. - A single bleeding colonic angiodysplastic lesion. Treated with a monopolar probe. - One 5 mm polyp in the ascending colon, removed with a jumbo cold forceps. Resected and retrieved. - One 10 mm polyp in the ascending colon, removed with a hot snare. Resected and retrieved. - One 10 mm polyp at the hepatic flexure, removed with a hot snare. Resected and retrieved. Clip was placed. Clip cutter machine tender: [email or web address]. - The examined portion of the ileum was normal. March 2024 pathology: MICROSCOPIC DIAGNOSIS A. Gastric body polyp, polypectomy: Fragments of hyperplastic/inflammatory polyp. See comment. B. Hepatic flexure polyp, polypectomy: Fragments of villous adenoma. C. Ascending colon polyp, biopsy: Fragments of tubular adenoma. 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 Morbid obesity with BMI of 45.0-49.9, adult Atherosclerotic heart disease of [place] coronary artery without angina pectoris Mini stroke [...] 45.0-49.9, adult Nephrolithiasis Diabetes mellitus, type II Surgical History History of cardiac catheterization History of lymph node excision History of left heart catheterization (2009) Hx of nephrolithotomy with removal of calculi History of thoracentesis (2015) Family History Brother Heart disease Mother CVA (cerebral vascular accident) Hypertension Rheumatoid arthritis Father Diabetes Other Alcohol abuse ulcer disease Social History household members: spouse and none Smoking Status: Never smoker Electronic Cigarette Use: not used second hand exposure: No alcohol intake: never substance use type: does not use what type of physical activity do you participate in: none ROS ROS Narrative Unaware of any external bleeding but stools have been dark on oral iron Constitutional Constitutional: Reports fatigue Intake Vital Signs 05/05/24 13:14 10/27/24 10:19 11/03/24 13:32 11/03/24 13:42 Height 5 ft 9 in 5 ft 9 in 5 ft 9 in 5 ft 9 in Weight: 150.139 kg 153.428 kg BMI 48.9 49.9 BP 136/79 H 86/60 L Blood Pressure Location Lt brachial Lt brachial Position Sitting Sitting Respiration 20 H 18 Pulse 65 85 Pulse Source Monitor Monitor Temp 97.9 F Temperature Source Temporal Artery Pulse Oximetry (%) 98 Oxygen Delivery Method nasal canula Oxygen Flow Rate (L/min) 4 Intake Is patient in pain?: Yes (back) Pain scale (1-10): 5 Allergies metoclopramide HCl (From Reglan) Allergy (Severe, Verified 11/03/24 13:35) Anaphylaxis Medications ?Medication ?Instructions ?Recorded ?Confirmed ?Type tamsulosin 0.4 mg capsule 0.4 mg PO DAILY prostate 12/1511/03/24 History Held on 09/28/24. Instructions: Until instructed to restart duloxetine 60 mg capsule,delayed 60 mg PO DAILY depres wanda 04/17/18 11/03/24 History release (Cymbalta) 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,equity structurer,cont #1 ea 07/26/20 11/03/24 Rx (Dexcom G6 Rn Clinical) 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 transmitter (Dexcom #1 ea 12/29/2111/03 Rx G6 Transmitter device) infusion set for insulin pump 10/08/22 11/03/24 Histo ry insulin pump controller 10/08/22 11/03/24 History 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 sensor (Dexcom G6 #1 ea 02/25/23 5 Rx Sensor device) insulin regular hum U-500 conc 500 75 unit (0.15 mL) c ontinuous 11/11/23 11/03/24 Rx unit/mL subcutaneous soln (Humulin subcutaneous infusi on DAILY blood R U-500 (Concentrated) Insulin) sugar #20 mL ferrous sulfate 325 mg (65 mg 325 mg PO DAILY anemia 1 05/03/23 11/03/24 History iron) tablet (Feosol) amlodipine 5 mg tablet 5 mg PO QDAY blood pressure 03/13/24 11/03/24 History aspirin 325 mg tablet 325 mg PO DAILY heart health 03/13/24 11/03/24 History metoprolol succinate 100 mg 100 mg PO DAILY heart #90 tabs 03/27/24 11/03/24 Rx tablet,extended release 24 hr lisinopril 40 mg tablet 40 mg PO DAILY blood pressur e 04/12/24 11/03/24 History levothyroxine 112 mcg tablet 112 mcg PO DAILY thyroid 04/24/24 11/03/24 History ticagrelor 90 mg tablet (Brilinta) 90 mg PO BID 11/03/24 History furosemide 40 mg tablet (Lasix) 40 mg PO BID diuretic #270 tabs 06/23/24 11/03/24 Rx pantoprazole 40 mg tablet,delayed 40 mg PO BID acid re flux #60 tabs 07/22/24 11/03/24 Rx release (Protonix) empagliflozin 25 mg tablet 25 mg PO DAILY diabetes #30 tabs 08/12/24 11/03/24 Rx (Jardiance) apixaban 5 mg tablet (Eliquis) 5 mg PO BID blood thinn er #180 tabs 08/31/24 11/03/24 Rx buspirone 10 mg tablet 10 mg PO DAILY Anxiety 09/1611/03/24 History oxycodone-acetaminophen 5 mg-325 1 tab PO TID PRN pain 09/16/24 11/03/24 History mg tablet prednisone 5 mg tablet See Rx Instructions PO .COMP SOFY 09/16/24 11/03/24 History steriod fenofibrate 54 mg tablet 54 mg PO QDAY 10/27/2411/03 History glimepiride 4 mg tablet 4 mg PO QAM 10/27/24 5 History rosuvastatin 40 mg tablet 40 mg PO QDAY #30 tabs 10/2711/03/24 Rx Have you fallen in the past year?: No Central Venous Access Central Venous Access: No Laboratory Tests 09/04/21 12/31/22 08/05/23 06:40 14:52 10:25 Hgb 11.0 L 10.8 L MCV 81.5 82.4 Retic Count Creatinine Est GFR (MDRD) Non-Af Iron Saturation 10.4 L 11.0 L Ferritin 37 20 L Vitamin B12 01/10/24 01/21/24 01/22/24 12:38 05:43 05:53 Hgb 9.3 L MCV 77.6 L Retic Count 2.36 H Creatinine Est GFR (MDRD) Non-Af Iron Saturation 3.5 L Ferritin 28 53 Vitamin B12 510 04/15/24 04/24/24 04/24/24 06:31 14:18 15:50 Hgb 8.5 L 9.0 L 9.0 L MCV Retic Count Creatinine Est GFR (MDRD) Non-Af Iron Saturation 22.8 Ferritin 102 Vitamin B12 04/25/24 05/05/24 09/26/24 03:47 12:44 15:40 Hgb 8.6 L 9.3 L 9.1 L MCV 76.5 L Retic Count Creatinine Est GFR (MDRD) Non-Af Iron Saturation 22.0 Ferritin 134 Vitamin B12 09/27/24 10/13/24 10/13/24 05:52 16:52 16:54 Hgb 8.9 L 10.2 L MCV Retic Count Creatinine 1.89 H Est GFR (MDRD) Non-Af 40 L Iron Saturation Ferritin Vitamin B12 11/03/24 12:54 Hgb 10.0 L MCV Retic Count Creatinine Est GFR (MDRD) Non-Af Iron Saturation 13.0 Ferritin 124 Vitamin B12 Exam Physical Exam Narrative ECOG 2, seen in a wheelchair Const alert, oriented x3 and no apparent distress General Appearance: cooperative Nutritional Appearance: morbidly obese Coding Level of Care Code Off vis,est,level 3 Exam Problem Focused Diagnoses Iron deficiency anemia due to chronic blood loss D50.0 Assessment and Plan Assessment and Plan (1) Iron deficiency anemia due to chronic blood loss: Status: Inactive Plan 59-year-old gentleman with chronic anemia consistent with: 1. Iron deficiency anemia from chronic GI blood loss documented July 2023 with alow serum ferritin. Iron deficiency improved with oral iron supplementation. Patient underwent upper and lower GI endoscopies March 2024, showing diverticulosis, a bleeding colonic angiodysplastic lesion was treated with monopolar probe and adenomatous polyps were removed. 2. Anemia of chronic disease including chronic renal failure and polypharmacy. Patient underwent upper and lower GI endoscopies March 2024, showing diverticulosis, a bleeding colonic angiodysplastic lesion was treated with monopolar probe and adenomatous polyps were removed. His profound fatigue with a hemoglobin at 10 reported November 03, 2024 is out of proportion to the degree of this mild anemia and is attributed to the multiple comorbidities. Chronic comorbid conditions: Cerebrovascular disease on triple anticoagulation (aspirin, Plavix and Eliquis), interstitial lung disease, obstructive sleep apnea, diabetes, hypertension, chronic kidney disease, hypothyroidism, chronic respiratory failure, arthritis, chronic diastolic congestive heart failure, Notable on his medical history the fact that he is being on triple anticoagulation including aspirin, Plavix and Eliquis for cerebrovascular disease. Recommendations: 1. Continue oral iron with vitamin C long-term to be taken separately from PPI to maximize absorption. 2. Patient is not yet a candidate for erythrocyte stimulating agent therapy foranemia of chronic renal failure no transfusion with packed red blood cells. Patient was seen with his impression and recommendation discussed. Follow- up in 6 months Rito Lundberg MD Child Neurologist, [facility] Divisions of Medical Oncology & Hematology Department of Internal Medicine [place] [id number] This note was generated using a voice recognition system software. Although itwas reviewed by the author prior to finalization, it may still contain incorrectwords, spelling, and punctuation that were not noted when reviewing prior to saving. If a clinically significant typo or inaccurately typed phrase is noted, please notify the author. Clinical Quality Measures Falls Risk Screening/Assistive Devices Have you fallen in the past year?: No 11/03/24 1414 <Electronically signed by Rito plasencia MD> Date _ Rito Lundberg MD Cosigner Signature: Date (if applicable) CC: Dr. Brandt Winter MD ~ [facility] Work Phone: [phone] Telephone encounter Note* Telephone Encounter - Kandice Curran RN - 10/27/2024 12:09 PM EDT Called pharmacy, they need additional refills sent in. Will pend and send a request to the provider. [id number] Miscellaneous Notes* Telephone Encounter - Kandice Curran RN - 10/27/2024 12:09 PM EDT Called pharmacy, they need additional refills sent in. Will pend and send a request to the provider. documented in this [facility]06[facility]30-2025 Discharge summary Author Karina Benítez [facility] Note Date/Time September 28, 2024 4:06 pm [facility] Medical Records Department [address] [place] [address] Discharge Summary 09/28/24 1442 MR#: [id number] Acct: [id number] Name: KRUNAL LEOS Rep #:[id number] : 1965 59 From: Karina Benítez DO PCP: Dr. Brandt Winter MD Status:ADM IN Location: [place] [address] Providers Date of Admission: 09/26/24 Date of Discharge: 09/28/24 Primary Care Physician: Brandt Winter MD Consultations 09/26/24 19:23 Consult: Tele-Neurology Routine Consulting Provider: [facility] Reason for Consult: Acute Ischemic Stroke/TIA EMERGENT Consult: No MD Notified: Yes Date Notified: 09/26/24 Time Notified: 19:23 Method of Notification: Verbal Comments:: Called stroke line and connected via phone w/ Dr. Lyons Nursing Unit Staff Notify [facility] of Tele-Neurology Consult: Yes Reason For Visit: ACUTE CVA, AL OCCLUSION Diagnosis Discharge Diagnosis (1) Acute right MCA stroke: Status: Acute Code(s): I63.511 - Cerebral infarction due to unspecified occlusion or stenosis of right middle cerebral artery (2) Chronic respiratory failure with hypoxia: Status: Chronic Code(s): J96.11 - Chronic respiratory failure with hypoxia (3) Elevated troponin: Status: Acute Code(s): R79.89 - Other specified abnormal findings of blood chemistry Medications at Discharge Home Medications tamsulosin 0.4 mg capsule 0.4 mg PO DAILY prostate 09/08/15 Held on 09/28/24. Instructions: Until instructed to restart duloxetine 60 mg capsule,delayed release (Cymbalta) 60 mg PO DAILY depression 04/17/18 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,equity structurer,cont (Dexcom G6 Rn Clinical) #1 ea 07/26/20 atorvastatin 80 mg tablet (Lipitor) 80 mg PO QHS cholesterol 09/04/21 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 transmitter (Dexcom G6 Transmitter device) #1 ea 12/29/21 infusion set for insulin pump 10/08/22 insulin pump controller 10/08/22 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 sensor (Dexcom G6 Sensor device) #1 ea 02/25/23 insulin regular hum U-500 conc 500 unit/mL subcutaneous soln (Humulin R U-500 (Concentrated) Insulin) 75 unit (0.15 mL) continuous subcutaneous infusion DAILYblood sugar #20 mL 11/11/23 ferrous sulfate 325 mg (65 mg iron) tablet (Feosol) 325 mg PO DAILY anemia 03/02/24 amlodipine 5 mg tablet 5 mg PO QDAY blood pressure 03/13/24 aspirin 325 mg tablet 325 mg PO DAILY heart health 03/13/24 metoprolol succinate 100 mg tablet,extended release 24 hr 100 mg PO DAILY heart #90 tabs 03/27/24 lisinopril 40 mg tablet 40 mg PO DAILY blood pressure 04/12/24 levothyroxine 112 mcg tablet 112 mcg PO DAILY thyroid 04/24/24 ticagrelor 90 mg tablet (Brilinta) 90 mg PO BID 05/21/24 furosemide 40 mg tablet (Lasix) 40 mg PO BID diuretic #270 tabs 06/23/24 pantoprazole 40 mg tablet,delayed release (Protonix) 40 mg PO BID acid reflux #60 tabs 07/22/24 empagliflozin 25 mg tablet (Jardiance) 25 mg PO DAILY diabetes #30 tabs 08/12/24 apixaban 5 mg tablet (Eliquis) 5 mg PO BID blood thinner #180 tabs 08/31/24 buspirone 10 mg tablet 10 mg PO DAILY Anxiety 09/16/24 oxycodone-acetaminophen 5 mg-325 mg tablet 1 tab PO TID PRN pain 09/16/24 prednisone 5 mg tablet See Rx Instructions PO .COMPLEX steriod 09/16/24 fenofibrate micronized 134 mg capsule 134 mg PO QHS 09/26/24 Hospital Course Procedures 2-D Echocardiogram, EKG and - (CT brain/CTA head neck/MRI brain) Summary of Care Provided Minutes Spent on Discharge: 38 Hospital Course: Mr. Grant is a 59-year-old medically complicated white male who presented to the emergency department [facility] on 09/26/2024 with a chief complaint of left-sided numbness and weakness and generalized debility. Patienthas a known history of stroke and chronic hypoxic respiratory failure on 4 L of oxygen at rest and 8 L with exertion, diabetes, hypertension, untreated KIANNA and hyperlipidemia and developed acute onset facial droop, left-sided paresthesias and weakness on the afternoon of admission. Patient typically is on aspirin, Brilinta, and Eliquis due to previous stroke however he had stopped all of thesefor a lung biopsy to determine the cause of his chronic hypoxic respiratory failure and suspected interstitial lung disease. His first dose after his biopsy was the evening prior to presentation. Vital signs in the emergency department showed a temperature of 97.9, heart rate 84, respiratory rate is 18, blood pressure was 133/64 and patient's oxygen saturation is 97% on 4 L nasal cannula which is his baseline. He had a mild leukocytosis with white count of 14.0 and a chronic anemia that was stable at 9.1. Chemistry showed mildly elevated BUN/creatinine at 31 and 1.26 with a blood sugar of 246. Patient has an insulin pump at baseline and follows with endocrinology. Coags were normal. Hemoglobin A1c was 8.4. He has been on prednisone for his lungs which has messed with his glycemic control as of late. He is also had some urinary and bowel incontinence which is not a new thing. He has no saddle anesthesia or significant back/lower extremity weakness or paresthesias. He is on Flomax so Idid discuss with him discontinuing this to see if it helps with his urinary continence. With regards to his bowel incontinence he states that the stools are quite loose. There is no concern for infectious etiology so we did advise that he can take as needed Imodium to see if bulk forming his stool a little bitwould help him control. If it is persistent, I did recommend outpatient follow-up with GI. Lipid panel was obtained and showed a total cholesterol of 140 withan LDL of 64 and an HDL of 52 with triglycerides at 159. CT on presentation showed no acute finding with chronic microvascular ischemic changes noted. CTA of his head and neck showed progression to complete occlusion of the M1 segment of the right MCA with threadlike distal reconstitution most compatible with acute or subacute occlusion unchanged occlusion of the V1 and V3 vertebral artery segments with retrograde filling of the left V4 segment and biapical groundglass opacities with central tracheal secretions compatible with pneumonitis. The patient was admitted after the case was discussed with neurology at [facility]. They indicated to reinstitute his triple therapy with Brilinta, aspirin, and Eliquis and that there was no acute intervention needed for his M1 occlusion. Fortunately, his NIH was 0 and remained 0. He had some generalized weakness and debility for which she will continue with outpatient therapy. MRI was performed and did confirm stroke noting scattered small acute embolic showering within the distal right MCA territory. Neurology evaluated the patient and stated that he needed to continue high intensity dose statin which she was already taking, and restart and keep on his aspirin, Brilinta, andEliquis. Echocardiogram was obtained and demonstrated normal EF with previous negative bubble study and no significant change from previous echocardiogram. Patient already established with neurology so he recommended outpatient follow-up with Dr. Osman after discharge. He should follow-up with his primary care physician within 1 week. Ongoing follow-up at for pulmonary medicine should be pursued as well. Patient was discharged home with outpatient therapy prescription in stable condition on 09/28/2024. Discharge diagnoses: Acute right MCA stroke Elevated troponin secondary to subendocardial ischemia due to demand History of stroke Chronic hypoxic respiratory failure DM-2 Urinary incontinence Bowel incontinence Hypothyroidism Essential hypertension Hyperlipidemia KIANNA-noncompliant Chronic HFpEF GERD Depression Morbid obesity Physical Exam Const alert, oriented x3, no apparent distress, no limitations and well nourished; Negative for average body habitus or healthy appearing Constitutional Narrative: Morbidly obese, upper middle-aged, white male, sitting up in bed getting his echocardiogram, appears comfortable, nontoxic General Appearance: cooperative, comfortable, well kempt and well developed Exam Limitations: no limitations Nutritional Appearance: morbidly obese HEENT normocephalic, head/scalp atraumatic and moist oral mucous membranes HEENT Narrative: mallampati 3 Eyes conjunctivae normal Eyes Narrative: no scleral icterus Neck supple Neck Narrative: short and thick neck Resp normal respiratory effort, no retractions and no use of accessory muscles Resp Narrative: Diffusely diminished, scattered crackles Auscultation: Negative for rhonchi or wheezes Cardio regular rate, regular rhythm, S1 normal heart sound, S2 normal heart sound, no murmurs, no rub, no gallops and no clicks GI normal to inspection, nondistended, normoactive bowel sounds, soft to palpation and non-tender GI Narrative: Protuberant abdomen Extremity no clubbing, cyanosis or edema Skin skin turgor normal and no jaundice Neuro oriented x3, moves all extremities and no focal motor deficits Neuro Narrative: Generalized weakness especially proximal greater than distal but no focal deficits noted Speech: speech normal Psych affect normal Psych Narrative: Very pleasant, eye contact is good and patient interacts appropriately Weight / BMI Weight Weight: 146.7 kg Body Mass Index (BMI) 47.7 ABG / Lab / Microbiology Data 09/27/24 05:52 09/27/24 05:52 Laboratory: Laboratory Results - last 24 hr 09/27/24 21:20: POC Glucose 348 H 09/28/24 06:25: POC Glucose 165 H 09/28/24 11:45: POC Glucose 232 H Radiography Diagnostic Testing: Radiology Impression Echocardiogram 09/26/24 20:03 Interpretation Summary The estimated ejection fraction is 60-65 %. Normal LV systolic function No significant valve abnormality No pericardial effusion. Previous bubble study was performed which showed no intracardiac shunt. No significant change from previous echocardiogram Ordering Physician: Xiao Berrios Referring Physician: Angel Avitia Performed By: Chito Johnson RDCS D/C Instructions Discharge Diet: Low fat / Low cholesterol and 1800 Calorie Control Diet Discharge Activity: Return to Normal Activity DC O2, CPAP, BIPAP Needs Home O2 Discharge instructions: Yes Type of respiratory needs?: Oxygen Oxygen frequency: At rest and With Ambulation (8) Oxygen liters per minute during Ambulation: 8 DC home with Oxygen: Yes Home O2 MD Review: I have reviewed the oxygen testing, and the patient qualifies for home oxygen equipment and portability. The patient is mobile in the home and the community. Meaningful Use Info Meaningful Use Meaningful Use Diagnoses (Choose all that apply): Ischemic CVA CVA Therapy Assessed for PT,OT and/or ST?: Yes Ischemic Stroke Antithrombotic order at d/c?: Yes Dx of Atrial fib/flutter?: No Anticoagulant at discharge?: Yes Statin Dosing Therapy Reference: STATIN DOSE THERAPY REFERENCE: * Patients > 75 years receive moderate or high dose statin therapy. * Patients 75 years or YOUNGER should receive HIGH intensity statin dose unless contraindicated. You will be required to document reason for non-treatment if statin daily dose does not meet guidelines. HIGH DOSE STATIN THERAPY DAILY Atorvastatin > than or = to 40 mg Rosuvastatin > than or = to 20 mg Amlodipine + Atorvastatin > than or = to 2.5/40 mg Ezetimibe + Simvastatin 10/80 mg Simvastatin 80mg Statins at discharge?: Yes If patient is 75 or younger, pt will be discharged on HIGH intensity statin.: Yes Primary Dx Acute Ischemic CVA?: Yes IV thrombolytic ordered during stay?: No Reason IV thrombolytic not ordered: Treatment not Indicated Discharge Plan Admission Admit Date/Time: 09/26/24 20:20 Primary Reason for Your Visit: Left-sided numbness and weakness Attending Provider: Karina Benítez Primary Care Provider: Brandt Winter Consulting Providers: Edmund Dey; Kristin Boyd; Amy Dumont; Bethany Velasco; Lucy Granado; Giancarlo Lomeli; Patrizia Burk; Alden Lazaro; Julius Flores; Fred Talbert; Jennifer Toledo; Joao Arredondo; Palak Garvin; Michelle Lyons; Indigo Coates; Lavelle Chakraborty; Rogers Heart; Abrahan Bejarano; Mindy Benítez; Ryan Riley;Xiao Berrios Instructions Additional Instructions / Restrictions: 1. Hold Flomax as discussed due to urinary incontinence 2. Okay to utilize Imodium as needed for your bowel incontinence 3. If your blood sugars remain elevated despite weaning your steroids please contact your primary meter engineer 4. Would have extensive conversation in the future before holding aspirin, Brilinta, and Eliquis 5. Please follow-up with your neurologist as previously recommended Discharge Orders/Prescriptions Prescriptions: Continued (DME) Dexcom G6 Rn Clinical Misc See Rx Instructions .ROUTE .MEDSUPPLY Qty: 1 0RF Rx Instructions: As directed (DME) infusion set for insulin pump Infusion Set See Rx Instructions .Route Rx Instructions: As directed (DME) insulin pump controller Misc See Rx Instructions .Route Rx Instructions: As directed aspirin 325 mg tablet 325 mg PO DAILY Patient Comments: coated amlodipine 5 mg tablet 5 mg PO QDAY prednisone 5 mg tablet See Rx Instructions PO .COMPLEX Rx Instructions: patient currently taking 15mg daily. tapers down to 10mg daily starting 10/07/24 oxycodone-acetaminophen 5-325 mg tablet 1 tab PO TID PRN (Reason: pain) Brilinta 90 mg tablet 90 mg PO BID duloxetine [Cymbalta] 60 MG capsule,delayed release(DR/EC) 60 mg PO DAILY buspirone 10 mg tablet 10 mg PO DAILY atorvastatin [Lipitor] 80 MG tablet 80 mg PO QHS Rx Instructions: cholesterol fenofibrate micronized 134 mg capsule 134 mg PO QHS ferrous sulfate [Feosol] 325 mg (65 mg [...] 5 mg PO BID Qty: 180 3RF Held tamsulosin 0.4 MG capsule 0.4 mg PO DAILY Hold Instructions: Until instructed to restart Referrals / Follow Up: Brandt Winter MD [Primary Care Provider] - In 1 Week Toni Vann MD [Non-Staff -Ordering Privileges] - Within 1 Week Disposition Disposition (needs filled in before D/C Order can be placed): Home, Self Care Charges/Coding Visit Charges Inpatient E&M: 75832 Disch Hosp >30min 09/28/24 1606 <Electronically signed by Karina Benítez DO> Cosigner Signature (if applicable): CC: Dr. Brandt Winter MD; Dr. Karina Benítez DO; Dr. Toni Vann MD~ Signed [facility] Work Phone: 1(522) 168-865506-30-2025 [facility]06-30-2025 Progress note Author [facility] Note Date/Time September 28, 2024 12:3 3pm [facility] Medical Records Department [address] [place] [address] Progress Note - Neurology 09/28/24 1144 MR#: [id number] Acct: [id number] Name: KRUNAL LEOS Rep #:[id number] : 1965 59 From: Amy Dumont MD PCP: Dr. Brandt Winter MD Status:ADM IN Location: [place] [address] Objective Data Objective Data Vital Signs: Vital Signs Temp Pulse Resp BP Pulse Ox O2 Del Method O2 Flow Rate 97.8 F 70 18 137/69 H 98 Nasal Cannula 4 09/28/24 09:27 09/28/24 09:27 09/28/24 09:27 09/28/24 09:27 09/28/24 09:27 09/28/24 09:27 09/28/24 09:27 Oxygen Flow Rate (L/min) 4 Oxygen Delivery Method Nasal Cannula Weight: 146.7 kg Body Mass Index (BMI) 47.7 Intake & Output: Intake and Output for Last 24 Hours 09/26/24 09/27/24 09/28/24 23:59 23:59 23:59 Intake Total 600 / 600 1100 / 1600 600 / 600 Output Total 500 / 500 1650 / 3450 2900 / 2900 Balance 100 / 100 -550 / -1850 -2300 / -2300 Lab / Micro Data 09/27/24 05:52 09/27/24 05:52 Labs: Laboratory Results - last 24 hr 09/27/24 12:32: POC Glucose 163 H 09/27/24 21:20: POC Glucose 348 H 09/28/24 06:25: POC Glucose 165 H Radiography Diagnostic Testing: Radiology Impression Brain MRI 09/27/24 20:02 IMPRESSION: Scattered, small acute embolic showering within the right distal MCA territory. Additional chronic findings as described. Reading Location: [facility] Physical Exam Neuro Neuro Narrative: Awake,alert, oriented X3 CN 2-12 intact Motor 5/5 Sensation: intact No ataxia Subject: Neurology Subjective KRUNAL LEOS is a 59 year old M, who we are seeing in consultation today for advice on the management of stroke and related patient care. He has a PMH ofBPH, KIANNA, chronic oxygen use due to suspected ILD, HTN, HLD, afib on eliquis, CHF, CKD, anemia, hodgkins lymphoma, DM, neuropathy, NIDIA, MDD, moderate BL carotid disease on brillinta and ASA per outpatient vascular surgeon no need forintervention, severe right M1 stenosis and TIAs and strokes in distribution of R-M1 territory who presents with another transient episode of left sided weakness and dysarthria. He had a lung bx on and was off his ap and ac,he restarted them saturday, and on saturday while at a constitution party had transient left sided symptoms and dysarthria that lasted 30min so came in to get checked out. Last time he had this was in 04/2024 and work up was neg and called TIA. He went to see his neurologist and vascular surgeon who switched him to VHC196 and switched plavix to brillinta and he has been doing well on ASA, brillinta and eliquis. management does not change as he is on triple therapy. he is on statinand cv risk factor optimization. No further recs. F/u with pcp and neurologist. Patient reports that his has noticed cognitive impairment. EEG Results Procedure Details EEG Procedure Details: KRUNAL LEOS is a 59 year old M with a past medical history of , who presents for evaluation of Electroencephalogram on DATE at TIME Assessment and Plan: Stroke Assessment/Plan KRNUAL LEOS is a 59 M with a history of BPH, KIANNA, chronic oxygen use dueto suspected ILD, HTN, HLD, afib on eliquis, CHF, CKD, anemia, hodgkins lymphoma, DM, neuropathy, NIDIA, MDD, moderate BL carotid disease on brillinta andASA who presents for evaluation of left sided weakness Neurological examination shows intact examination. Neuroimaging shows MRI: R MCAstroke. CTA: Progression to now complete occlusion of the M1 segment of the right MCA, with thread-like distal reconstitution, most compatible with acute/subacute occlusion. Correlation with CT perfusion or MRI recommended to evaluate for chronicity. 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 Unchanged calcific plaque of the bilateral cervical carotid arteries without hemodynamically significant stenosis by NASCET criteria. HbA1C: 8.4, LDL: 64 1. Continue ASA, Brillinta, eliquis 2. Risk factor modification 3. HLD: Statin 4. HTN: Aim normotension 5. DM2: euglycemia 6. Afib on eliquis. ECHO pending 7. PT, OT evaluation. stroke education Thanks for consult. Spent 35 min in evaluation and management NIHSS NIHSS Nursing Documentation NIHSS Nursing Documentation: NIH Stroke Scale Start: 09/26/24 15:40 Freq: Status: Discharge Protocol: Activity Type Activity Date Activity User E-sign Co-sign Detail Recorded Client Recorded Date Recorded By Document 09/26/24 15:40 [id number] 09/26/24 15:41 09/26/24 15:40 NIH Stroke Scale [NIHSS] A score of 0 is normal or asymptomatic . Total possible score is 42. Inpatient: RN or Physician to activate a stroke alert for onset of new stroke symptoms or with NIHSS increase >/= 3 points. Following change in neurological status, NIHSS will be performed per physician order or more frequently PRN. -1a. Level of Consciousness 0 - Alert; keenly responsive -1b. LOC Questions 0 - Answers BOTH questions correctly -1c. LOC Commands 0 - Performs BOTH tasks correctly -2. Best Gaze 0 - Normal -3. Visual 0 - No visual loss -4. Facial Palsy 0 - Normal symmetrical movements -5a. Left Arm 1 - Drift; arm drifts downward but doesn?t hit the bed -5b. Right Arm 0 - No drift; arm holds 90 ( or 45) degrees for full 10 seconds -6a. Left Leg 1 - Drift; leg falls by the end of 5- seconds, but does not hit bed -6b. Right Leg 0 - No drift; leg holds 30- degree position for full 5 seconds -7. Limb Ataxia 0 - Absent -8. Sensory 0 - Normal; no sensory loss -10. Dysarthria 0 - Normal -11. Extinction and Inattention 0 - No abnormality -Total 2 Query Text:A score of 0 is normal or asymptomatic. Total possible score is 42 . ED: Notify Physician for NIHSS increase by > / = 3 points. Inpatient: RN or Physician to activate a stroke alert for NIHSS increase of > / = 3 points. NIHSS: Ischemic Stroke/TIA Start: 09/26/24 19:23 Text: For PCU Patients: NIH and Neuro Check every 4 Status: Active hours, PRN and with change in RN caregiver. Freq: [id number] Protocol: Activity Type Activity Date Activity User E-sign Co-sign Detail Recorded Client Recorded Date Recorded By Document 09/28/24 09:27 MARLY [id number] 09/28/24 09:29 MARLY 09/28/24 09:27 -1a. Level of Consciousness 0 - Alert; keenly responsive -1b. LOC Questions 1 - Answers ONE question correctly -1c. LOC Commands 0 - Performs BOTH tasks correctly -2. Best Gaze 0 - Normal -3. Visual 0 - No visual loss -4. Facial Palsy 1 - Minor paralysis ( flattened nasolabial fold , asymmetry on smiling) -5a. Left Arm 0 - No drift; arm holds 90 ( or 45) degrees for full 10 seconds -5b. Right Arm 0 - No drift; arm holds 90 ( or 45) degrees for full 10 seconds -6a. Left Leg 0 - No drift; leg holds 30- degree position for full 5 seconds -6b. Right Leg 0 - No drift; leg holds 30- degree position for full 5 seconds -7. Limb Ataxia 0 - Absent -8. Sensory 0 - Normal; no sensory loss -9. Best Language 0 - No aphasia; normal -10. Dysarthria 0 - Normal -Total 2 Query Text:A score of 0 is normal or asymptomatic. Total possible score is 42 . ED: Notify Physician for NIHSS increase by > / = 3 points. Inpatient: RN or Physician to activate a stroke alert for NIHSS increase of > / = 3 points. Coma Scale [Assess] -Eye Opening Spontaneous -Motor Obeys Commands -Verbal Oriented [Total] -Coma Scale Total 15 NIHSS 1a. Level of Consciousness: 0 - Alert; keenly responsive 1b. LOC Questions: 0 - Answers BOTH questions correctly 2. Best Gaze: 0 - Normal 3. Visual: 0 - No visual loss 4. Facial Palsy: 0 - Normal symmetrical movements 5a. Left Arm: 0 - No drift; arm holds 90 (or 45) degrees for full 10 seconds 5b. Right Arm: 0 - No drift; arm holds 90 (or 45) degrees for full 10 seconds 6a. Left Le - No drift; leg holds 30-degree position for full 5 seconds 6b. Right Le - No drift; leg holds 30-degree position for full 5 seconds 7. Limb Ataxia: 0 - Absent 8. Sensory: 0 - Normal; no sensory loss 9. Best Language: 0 - No aphasia; normal 10. Dysarthria: 0 - Normal 11. Extinction and Inattention: 0 - No abnormality Total: 0 09/28/24 1233 <Electronically signed by Amy Dumont MD> Cosigner Signature (if applicable): CC: ~ Signed [facility] Work Phone: 1(127) 534-957606-29-2025 Progress note Author Karina Benítez [facility] Note Date/Time September 27, 2024 3:41 pm [facility] Medical Records Department [address] [place] [id number] Progress Note - Hospitalist 09/27/24 0801 MR#: [id number] Acct: [id number] Name: KRUNAL LEOS Rep #:[id number] : 1965 59 From: Karina Benítez DO PCP: Dr. Brandt Winter MD Status:ADM IN Location: [place] [address] Reason for Visit Reason for Visit: Diagnoses Cerebral infarction, unspecified (09/26/24) Objective Data Objective Data Vital Signs: Vital Signs Temp Pulse Resp BP Pulse Ox O2 Del Method O2 Flow Rate 97.8 F 67 18 139/64 H 95 Nasal Cannula 4 09/27/24 07:19 09/27/24 07:19 09/27/24 07:19 09/27/24 07:19 09/27/24 07:19 09/27/24 07:19 09/27/24 07:19 Oxygen Flow Rate (L/min) 4 Oxygen Delivery Method Nasal Cannula Weight: 146.7 kg Body Mass Index (BMI) 47.7 Intake & Output: Intake and Output for Last 24 Hours 09/25/24 09/26/24 09/27/24 23:59 23:59 23:59 Intake Total 600 / 600 0 / 0 Output Total 500 / 500 250 / 250 Balance 100 / 100 -250 / -250 Lab / Micro Data 09/27/24 05:52 09/27/24 05:52 Labs: Laboratory Results - last 24 hr 09/26/24 15:40: WBC 14.0 H, RBC 3.79 L, Hgb 9.1 L, Hct 30.0 L, MCV 79.2 L, MCH 24.0 L, MCHC 30.3 L, RDW Std Deviation 50.9 H, RDW Coeff of Gavi 17.9 H, Plt Count 237, MPV 10.4, Immature Gran % (Auto) 0.800, Neut % (Auto) 85.3 H, Lymph %(Auto) 4.2 L, Wharton % (Auto) 8.7, Eos % (Auto) 0.6, Baso % (Auto) 0.4, Absolute Neuts (auto) 11.9 H, Absolute Lymphs (auto) 0.58 L, Nucleated RBC % 0, PT 13.1, INR 1.0, APTT 20.8 L, Sodium 138, Potassium 4.2, Chloride 100, Carbon Dioxide 22.9, Anion Gap 15, BUN 31 H, Creatinine 1.26 H, Est GFR (MDRD) Non-Af 65, BUN/Creatinine Ratio 24.6 H, Glucose 246 H, Calcium 9.0, Troponin T High Sens 47 H 09/26/24 17:54: Troponin T Hi Sens 2 Hr 42 H 09/26/24 20:00: POC Glucose 172 H 09/26/24 22:53: Troponin T Hi Sens 4Hr 40 H 09/27/24 05:52: WBC 11.3 H, RBC 3.68 L, Hgb 8.9 L, Hct 29.3 L, MCV 79.6 L, MCH 24.2 L, MCHC 30.4 L, RDW Std Deviation 51.2 H, RDW Coeff of Gavi 17.8 H, Plt Count 214, MPV 9.8, Immature Gran % (Auto) 0.700, Neut % (Auto) 68.9, Lymph % (Auto) 19.4, Wharton % (Auto) 8.9, Eos % (Auto) 1.7, Baso % (Auto) 0.4, Absolute Neuts (auto) 7.8 H, Absolute Lymphs (auto) 2.19, Nucleated RBC % 0, Sodium 138, Potassium 3.9, Chloride 102, Carbon Dioxide 24.8, Anion Gap 12, BUN 27 H, Creatinine 1.19, Estim Creat Clear Calc 93.22, Est GFR (MDRD) Non-Af 69, BUN/Creatinine Ratio 22.7 H, Glucose 97, Hemoglobin A1c 8.4 H, Calcium 9.2, Triglycerides 159, Cholesterol 148, LDL Cholesterol, Calc 64, VLDL Cholesterol 32, HDL Cholesterol 52, Cholesterol/HDL Ratio 2.83 09/27/24 06:02: POC Glucose 106 Radiography Diagnostic Testing: Radiology Impression Brain CT 09/26/24 15:39 IMPRESSION: No acute intracranial finding. Chronic microvascular ischemic changes and age- related changes as described. Dr. Newberry discussed these findings via telephone with Dr. Avitia at 4:36 pm on09/26/24. Reading Location: [facility] Head/Neck CTA 09/26/24 17:06 IMPRESSION: 1. 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 Correlation with CT perfusion or MRI recommended to evaluate for chronicity. 2. 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 3. Biapical ground-glass opacities with central tracheal secretions, most compatible with aspiration pneumonitis/pneumonia. Dr. Newberry discussed critical findings via telephone with Dr. Berrios At 6:31 pm on 09/26/24. Reading Location: [facility] Physical Exam Const alert, oriented x3 and no apparent distress; Negative for average body habitus or healthy appearing Constitutional Narrative: Morbidly obese, upper middle-aged, white male, sitting up in bed, family at bedside, appears comfortable, nontoxic HEENT head/scalp atraumatic and moist oral mucous membranes Head and Scalp: normocephalic Resp normal respiratory effort, no retractions and no use of accessory muscles Resp Narrative: Diffusely diminished, scattered crackles Auscultation: Negative for rhonchi or wheezes Cardio regular rate, regular rhythm, S1 normal heart sound, S2 normal heart sound, no murmurs, no rub, no gallops and no clicks GI normal to inspection, nondistended, normoactive bowel sounds, soft to palpation and non-tender Extremity no clubbing, cyanosis or edema Neuro oriented x3, moves all extremities and no focal motor deficits Speech: speech normal Psych affect normal Psych Narrative: Very pleasant, eye contact is good and patient interacts appropriately Assessment & Plan Assessment/Plan (1) Acute right MCA stroke: (2) Chronic respiratory failure with hypoxia: (3) Elevated troponin: PLAN: Plan Acute right MCA stroke - MRI today showed significant embolic phenomenon noted at the distal MCA territory - Neurology recommends continuing triple therapy as this was on hold for lung biopsy - Continue aspirin Brilinta and restart home Eliquis - PT/OT following--> suspect may need home health care at discharge - Continue atorvastatin - Will continue to allow for permissive hypertension and only continue antihypertensives as ordered for now - Echocardiogram is pending - Continue NIH per protocol--> has been 0 since admission - Neurology has evaluated patient appreciate input Elevated troponin - Etiology is unclear - patient without chest pain - Echocardiogram is pending History of stroke - Patient was on dual antiplatelet therapy and had a recurrent stroke so he has been on triple therapy since that point in time - Antiplatelet therapy and anticoagulation were held for lung biopsy I suspect this is the etiology of his recurrent stroke Chronic hypoxic respiratory failure - Patient is on home O2 at 4 L - Recent lung biopsy at - Continue home medications - I-S DM-2 - Patient has insulin pump and will continue to use while admitted - Continue Accu-Cheks and SSI as ordered - Patient is on steroids for his lungs - Continue Jardiance Urinary and stool incontinence - patient is not having diarrhea - No saddle anesthesia - These are not new problems - With urinary incontinence we will hold Flomax - No suspicion of infectious etiology for diarrhea so as needed Imodium might help bulk formed some Hypothyroidism - Continue home Synthroid Essential hypertension/hyperlipidemia - Patient is not on all of his home antihypertensives as we are allowing for some permissive hypertension - Will likely restart tomorrow - Continue home statin - Continue fenofibrate KIANNA - Patient has primarily been using oxygen overnight and not using BiPAP - Strongly recommend compliance however there are tolerance issues Chronic HFpEF - Restart Lasix tomorrow if stable - Continue to monitor volume status - Continue Jardiance GERD - Continue home PPI Depression - Continue home Cymbalta - continue home BuSpar Morbid obesity - BMI is 47.8 - Complicates treatment, prognosis, outcomes - Recommend weight loss DVT prophylaxis - Full anticoagulation with Eliquis CODE STATUS -Full code Charges/Coding Visit Charges Inpatient E&M: 63263 Subs Hosp L2 NIHSS NIHSS Nursing Documentation NIHSS Nursing Documentation: NIH Stroke Scale Start: 09/26/24 15:40 Freq: Status: Discharge Protocol: Activity Type Activity Date Activity User E-sign Co-sign Detail Recorded Client Recorded Date Recorded By Document 09/26/24 15:40 EM [id number] 09/26/24 15:41 EM 09/26/24 15:40 NIH Stroke Scale [NIHSS] A score of 0 is normal or asymptomatic . Total possible score is 42. Inpatient: RN or Physician to activate a stroke alert for onset of new stroke symptoms or with NIHSS increase >/= 3 points. Following change in neurological status, NIHSS will be performed per physician order or more frequently PRN. -1a. Level of Consciousness 0 - Alert; keenly responsive -1b. LOC Questions 0 - Answers BOTH questions correctly -1c. LOC Commands 0 - Performs BOTH tasks correctly -2. Best Gaze 0 - Normal -3. Visual 0 - No visual loss -4. Facial Palsy 0 - Normal symmetrical movements -5a. Left Arm 1 - Drift; arm drifts downward but doesn?t hit the bed -5b. Right Arm 0 - No drift; arm holds 90 ( or 45) degrees for full 10 seconds -6a. Left Leg 1 - Drift; leg falls by the end of 5- seconds, but does not hit bed -6b. Right Leg 0 - No drift; leg holds 30- degree position for full 5 seconds -7. Limb Ataxia 0 - Absent -8. Sensory 0 - Normal; no sensory loss -10. Dysarthria 0 - Normal -11. Extinction and Inattention 0 - No abnormality -Total 2 Query Text:A score of 0 is normal or asymptomatic. Total possible score is 42 . ED: Notify Physician for NIHSS increase by > / = 3 points. Inpatient: RN or Physician to activate a stroke alert for NIHSS increase of > / = 3 points. NIHSS: Ischemic Stroke/TIA Start: 09/26/24 19:23 Text: For PCU Patients: NIH and Neuro Check every 4 Status: Active hours, PRN and with change in RN caregiver. Freq: [id number] Protocol: Activity Type Activity Date Activity User E-sign Co-sign Detail Recorded Client Recorded Date Recorded By Document 09/27/24 07:19 AMG [id number] 09/27/24 07:19 AMG 09/27/24 07:19 -1a. Level of Consciousness 0 - Alert; keenly responsive -1b. LOC Questions 0 - Answers BOTH questions correctly -1c. LOC Commands 0 - Performs BOTH tasks correctly -2. Best Gaze 0 - Normal -3. Visual 0 - No visual loss -4. Facial Palsy 0 - Normal symmetrical movements -5a. Left Arm 0 - No drift; arm holds 90 ( or 45) degrees for full 10 seconds -5b. Right Arm 0 - No drift; arm holds 90 ( or 45) degrees for full 10 seconds -6a. Left Leg 0 - No drift; leg holds 30- degree position for full 5 seconds -6b. Right Leg 0 - No drift; leg holds 30- degree position for full 5 seconds -7. Limb Ataxia 0 - Absent -8. Sensory 0 - Normal; no sensory loss -9. Best Language 0 - No aphasia; normal -10. Dysarthria 0 - Normal -11. Extinction and Inattention 0 - No abnormality -Total 0 Query Text:A score of 0 is normal or asymptomatic. Total possible score is 42 . ED: Notify Physician for NIHSS increase by > / = 3 points. Inpatient: RN or Physician to activate a stroke alert for NIHSS increase of > / = 3 points. Coma Scale [Assess] -Eye Opening Spontaneous -Motor Obeys Commands -Verbal Oriented [Total] -Coma Scale Total 15 09/27/24 1541 <Electronically signed by Karina Benítez DO> Cosigner Signature (if applicable): CC: ~ Signed [facility] Work Phone: [phone] Consult note Author Fred Talbert [facility] Note Date/Time September 27, 2024 11:4 5am [facility] Medical Records Department [address] [place] [address] Consultation - Neurology 09/27/24 1129 MR#: [id number] Acct: [id number] Name: KRUNAL ELOS Rep #:[id number] : 1965 59 From: Fred Alvarado PCP: Dr. Brandt Winter MD Status:ADM IN Location: [place] [address] Assessment and Plan: Neuro Assessment/Plan Assessment: - Likely this is a TIA in the setting of severe R-M1 stenosis and being off his meds. Plan: - Will get MRI brain to check for injury. Regardless management does not change as he is on triple therapy (Asa, brillinta and eliquis. I explained to patient this is typically not something we do, but given he has felt great on it will not touch his outpaient regimen), on statin and cv risk factor optimization. No further recs. F/u with pcp and neurologist. HPI Consult Data Date of Consult: 09/27/24 HPI Narrative HPI Narrative: KRUNAL LEOS, is a 59 M w/ BPH, KIANNA, chronic oxygen use due to suspected ILD, HTN, HLD, afib on eliquis, CHF, CKD, anemia, hodgkins lymphoma, DM, neuropathy, NIDIA, MDD, moderate BL carotid disease on brillinta and ASA per outpatient vascular surgeon no need for intervention, severe right M1 stenosis and TIAs andstrokes in distribution of R-M1 territory who presents with another transient episode of left sided weakness and dysarthria. He had a lung bx on and was off his ap and ac, he restarted them saturday, and on saturday while at a constitution party had transient left sided symptoms and dysarthria that lasted 30min so came in toget checked out. Last time he had this was in 04/2024 and work up was neg and called TIA. He went to see his neurologist and vascular surgeon who switched himto [id number] and switched plavix to brillinta and he has been doing well on ASA, brillinta and eliquis. Likely this is a TIA in the setting of severe R-M1 stenosis and being off his meds. Will get MRI brain to check for injury. Regardless management does not change as he is on triple therapy ( I explained to patient this is typically not something we do, but given he has felt great onit will not touch his outpaient regimen), on statin and cv risk factor optimization. No further recs. F/u with pcp and neurologist. [facility] Medical History Hyperlipidemia Ischemic cerebrovascular accident (CVA) CHF (congestive heart failure) Chronic respiratory failure with hypoxia KIANNA (obstructive sleep apnea) Presence of insulin pump CKD (chronic kidney disease) Hypothyroidism Essential (primary) hypertension Diabetes Acute hypoxemic respiratory failure Chronic diastolic CHF (congestive heart failure) Obesity Exertional shortness of breath Iron deficiency anemia due to chronic blood loss Current use of usp anticoagulation Morbid obesity with BMI of 45.0-49.9, adult Atherosclerotic heart disease of [place] coronary artery without angina pectoris Mini stroke [...] infarction (NSTEMI) (03/28/20) TIA (transient ischemic attack) (2019) Hodgkin disease GERD (gastroesophageal reflux disease) BPH (benign prostatic hyperplasia) Anxiety and depression Morbid obesity with BMI of 45.0-49.9, adult Nephrolithiasis Diabetes mellitus, type II Home Medications ?Medication ?Instructions ?Recorded ?Last Taken ?Type tamsulosin 0.4 mg capsule 0.4 mg PO DAILY prostate 12/1509/26/24 History duloxetine 60 mg capsule,delayed 60 mg PO DAILY depres wanda 04/17/18 09/26/24 History release (Cymbalta) 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,equity structurer,cont #1 ea 07/26/20 Unknown Rx (Dexcom G6 Rn Clinical) atorvastatin 80 mg tablet (Lipitor) 80 mg PO QHS arsenio sterol 09/04/21 09/25/24 History 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 transmitter (Dexcom #1 ea 12/29/21 Unkno wn Rx G6 Transmitter device) infusion set for insulin pump 10/08/22 Unknown Histor y insulin pump controller 10/08/22 Unknown History 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 sensor (Dexcom G6 #1 ea 02/25/23 Unknown Rx Sensor device) insulin regular hum U-500 conc 500 75 unit (0.15 mL) c ontinuous 11/11/23 09/26/24 Rx unit/mL subcutaneous soln (Humulin subcutaneous infusi on DAILY blood R U-500 (Concentrated) Insulin) sugar #20 mL ferrous sulfate 325 mg (65 mg 325 mg PO DAILY anemia 1 05/03/23 09/26/24 History iron) tablet (Feosol) amlodipine 5 mg tablet 5 mg PO QDAY blood pressure 03/13/24 09/26/24 History aspirin 325 mg tablet 325 mg PO DAILY heart health 03/13/24 09/26/24 History metoprolol succinate 100 mg 100 mg PO DAILY heart #90 tabs 03/27/24 09/26/24 Rx tablet,extended release 24 hr lisinopril 40 mg tablet 40 mg PO DAILY blood pressur e 04/12/24 09/26/24 History levothyroxine 112 mcg tablet 112 mcg PO DAILY thyroid 04/24/24 09/26/24 History ticagrelor 90 mg tablet (Brilinta) 90 mg PO BID 09/26/24 History furosemide 40 mg tablet (Lasix) 40 mg PO BID diuretic #270 tabs 06/23/24 09/26/24 Rx pantoprazole 40 mg tablet,delayed 40 mg PO BID acid re flux #60 tabs 07/22/24 09/26/24 Rx release (Protonix) empagliflozin 25 mg tablet 25 mg PO DAILY diabetes #30 tabs 08/12/24 09/26/24 Rx (Jardiance) apixaban 5 mg tablet (Eliquis) 5 mg PO BID blood thinn er #180 tabs 08/31/24 09/26/24 Rx buspirone 10 mg tablet 10 mg PO DAILY Anxiety 09/1609/26/24 History oxycodone-acetaminophen 5 mg-325 1 tab PO TID PRN pain 09/16/24 09/25/24 History mg tablet prednisone 5 mg tablet See Rx Instructions PO .COMP SOFY 09/16/24 09/26/24 History steriod fenofibrate micronized 134 mg 134 mg PO QHS 09/26/24 0 09/25/24 History capsule Allergy/AdvReac Type Severity Reaction Status Date / [...] physical activity do you participate in: none Vital Signs Vital Signs Vital Signs: 09/26/24 15:29 09/26/24 15:39 09/26/24 15:41 Temperature 97.9 F Temperature Source Oral Pulse Rate 84 78 Respiratory Rate 18 25 H Respiratory Effort Respiratory Depth Respiratory Pattern Blood Pressure 133/64 H 133/64 H Blood Pressure Mean 87 87 Blood Pressure Source Blood Pressure Position Blood Pressure Location Pulse Ox 97 95 Oxygen Delivery Method Nasal Cannula Nasal Cannula Nasal Cannula Oxygen Flow Rate (L/min) 4 4 4 09/26/24 16:00 09/26/24 16:09 09/26/24 16:30 Temperature Temperature Source Pulse Rate 79 91 79 Respiratory Rate 26 H 23 H 26 H Respiratory Effort Respiratory Depth Respiratory Pattern Blood Pressure 146/64 H 134/104 H 146/73 H Blood Pressure Mean 88 114 97 Blood Pressure Source Blood Pressure Position Blood Pressure Location Pulse Ox 96 Oxygen Delivery Method Nasal Cannula Oxygen Flow Rate (L/min) 3 09/26/24 17:19 09/26/24 17:19 09/26/24 17:19 Temperature Temperature Source Pulse Rate 76 73 Respiratory Rate 26 H 19 H Respiratory Effort Respiratory Depth Respiratory Pattern Blood Pressure 126/50 H 126/50 H 126/50 H Blood Pressure Mean 72 72 72 Blood Pressure Source Blood Pressure Position Blood Pressure Location Pulse Ox 94 97 Oxygen Delivery Method Nasal Cannula Oxygen Flow Rate (L/min) 4 09/26/24 17:30 09/26/24 17:49 09/26/24 18:00 Temperature Temperature Source Pulse Rate Respiratory Rate Respiratory Effort Respiratory Depth Respiratory Pattern Blood Pressure 133/64 H Blood Pressure Mean 84 Blood Pressure Source Blood Pressure Position Blood Pressure Location Pulse Ox 96 91 Oxygen Delivery Method Oxygen Flow Rate (L/min) 09/26/24 18:10 09/26/24 19:20 09/26/24 19:30 Temperature 97.8 F 98.3 F Temperature Source Oral Pulse Rate 74 70 Respiratory Rate 26 H 18 Respiratory Effort Normal Non-Labored Respiratory Depth Normal Respiratory Pattern Normal Blood Pressure 133/64 H 156/70 H Blood Pressure Mean 87 98 Blood Pressure Source Monitor Blood Pressure Position Semi-Fowlers Blood Pressure Location Right Arm Pulse Ox 94 97 Oxygen Delivery Method Nasal Cannula Nasal Cannula Oxygen Flow Rate (L/min) 4 4 09/26/24 21:14 09/26/24 21:20 09/26/24 23:20 Temperature 97.8 F 98.3 F Temperature Source Oral Oral Pulse Rate 76 68 Respiratory Rate 18 18 Respiratory Effort Respiratory Depth Respiratory Pattern Blood Pressure 126/66 H 148/65 H Blood Pressure Mean 86 92 Blood Pressure Source Monitor Monitor Blood Pressure Position Semi-Fowlers Semi-Fowlers Blood Pressure Location Right Arm Right Arm Pulse Ox 94 93 95 Oxygen Delivery Method Nasal Cannula Nasal Cannula Nasal Cannula Oxygen Flow Rate (L/min) 4 4 4 09/27/24 01:20 09/27/24 01:30 09/27/24 03:20 Temperature 98.1 F 97.8 F Temperature Source Oral Oral Pulse Rate 70 67 Respiratory Rate 18 18 Respiratory Effort Normal Non-Labored Respiratory Depth Normal Respiratory Pattern Normal Blood Pressure 154/67 H 166/63 H Blood Pressure Mean 96 97 Blood Pressure Source Monitor Monitor Blood Pressure Position Semi-Fowlers Semi-Fowlers Blood Pressure Location Left Arm Right Arm Pulse Ox 95 96 Oxygen Delivery Method Nasal Cannula Nasal Cannula Nasal Cannula Oxygen Flow Rate (L/min) 4 4 4 09/27/24 05:20 09/27/24 07:19 09/27/24 09:15 Temperature 98.2 F 97.8 F 98.1 F Temperature Source Oral Oral Temporal Pulse Rate 66 67 72 Respiratory Rate 18 18 16 Respiratory Effort Respiratory Depth Respiratory Pattern Blood Pressure 162/63 H 139/64 H 138/65 H Blood Pressure Mean 96 89 89 Blood Pressure Source Monitor Monitor Monitor Blood Pressure Position Semi-Fowlers Semi-Fowlers Sitting Blood Pressure Location Right Arm Right Arm Right Arm Pulse Ox 96 95 92 Oxygen Delivery Method Nasal Cannula Nasal Cannula Nasal Cannula Oxygen Flow Rate (L/min) 4 4 4 09/27/24 09:15 09/27/24 10:31 09/27/24 10:43 Temperature Temperature Source Pulse Rate 76 Respiratory Rate Respiratory Effort Normal Non-Labored Respiratory Depth Normal Respiratory Pattern Normal Blood Pressure Blood Pressure Mean Blood Pressure Source Blood Pressure Position Blood Pressure Location Pulse Ox 94 Oxygen Delivery Method Nasal Cannula Nasal Cannula Oxygen Flow Rate (L/min) 4 4 09/27/24 11:00 Temperature 97.9 F Temperature Source Oral Pulse Rate 76 Respiratory Rate 20 H Respiratory Effort Respiratory Depth Respiratory Pattern Blood Pressure 127/68 H Blood Pressure Mean 87 Blood Pressure Source Monitor Blood Pressure Position Semi-Fowlers Blood Pressure Location Right Arm Pulse Ox 95 Oxygen Delivery Method Nasal Cannula Oxygen Flow Rate (L/min) 4 Weight Weight: 146.7 kg Body Mass Index (BMI) 47.7 Physical Exam Narrative - General: NAD, pleasant, cooperative, well nourished, well developed - Head/Eyes: Atraumatic, normocephalic, clear cornea, normal sclera/conjunctive - Neuro: ? Mental Status: AAOX4 & following simple commands. ? Speech: Clear and fluent with good repetition, comprehension, & naming. No aphasia or dysarthria ? CN II: Visual goldberg are full to confrontation. ? CN III, IV, : EOMI, no gaze preference, no nystagmus, no ptosis ? CN V: Facial sensation is intact to light touch throughout. ? CN VII: Face is symmetric with normal eye closure and smile. ? CN VII: Hearing is grossly normal to conversational speech. ? Motor: Able to sustain all limbs ? Sensation: Normal to light touch bilaterally. ? Coordination: Normal FTN & HTS. No abn movements seen. ? Lab / Micro Data 09/27/24 05:52 09/27/24 05:52 Labs: Laboratory Results - last 24 hr 09/26/24 15:40: WBC 14.0 H, RBC 3.79 L, Hgb 9.1 L, Hct 30.0 L, MCV 79.2 L, MCH 24.0 L, MCHC 30.3 L, RDW Std Deviation 50.9 H, RDW Coeff of Gavi 17.9 H, Plt Count 237, MPV 10.4, Immature Gran % (Auto) 0.800, Neut % (Auto) 85.3 H, Lymph %(Auto) 4.2 L, Wharton % (Auto) 8.7, Eos % (Auto) 0.6, Baso % (Auto) 0.4, Absolute Neuts (auto) 11.9 H, Absolute Lymphs (auto) 0.58 L, Nucleated RBC % 0, PT 13.1, INR 1.0, APTT 20.8 L, Sodium 138, Potassium 4.2, Chloride 100, Carbon Dioxide 22.9, Anion Gap 15, BUN 31 H, Creatinine 1.26 H, Est GFR (MDRD) Non-Af 65, BUN/Creatinine Ratio 24.6 H, Glucose 246 H, Calcium 9.0, Troponin T High Sens 47 H 09/26/24 17:54: Troponin T Hi Sens 2 Hr 42 H 09/26/24 20:00: POC Glucose 172 H 09/26/24 22:53: Troponin T Hi Sens 4Hr 40 H 09/27/24 05:52: WBC 11.3 H, RBC 3.68 L, Hgb 8.9 L, Hct 29.3 L, MCV 79.6 L, MCH 24.2 L, MCHC 30.4 L, RDW Std Deviation 51.2 H, RDW Coeff of Gavi 17.8 H, Plt Count 214, MPV 9.8, Immature Gran % (Auto) 0.700, Neut % (Auto) 68.9, Lymph % (Auto) 19.4, Wharton % (Auto) 8.9, Eos % (Auto) 1.7, Baso % (Auto) 0.4, Absolute Neuts (auto) 7.8 H, Absolute Lymphs (auto) 2.19, Nucleated RBC % 0, Sodium 138, Potassium 3.9, Chloride 102, Carbon Dioxide 24.8, Anion Gap 12, BUN 27 H, Creatinine 1.19, Estim Creat Clear Calc 93.22, Est GFR (MDRD) Non-Af 69, BUN/Creatinine Ratio 22.7 H, Glucose 97, Hemoglobin A1c 8.4 H, Calcium 9.2, Triglycerides 159, Cholesterol 148, LDL Cholesterol, Calc 64, VLDL Cholesterol 32, HDL Cholesterol 52, Cholesterol/HDL Ratio 2.83 09/27/24 06:02: POC Glucose 106 Imaging Radiology Impression Brain CT 09/26/24 15:39 IMPRESSION: No acute intracranial finding. Chronic microvascular ischemic changes and age- related changes as described. Dr. Newberry discussed these findings via telephone with Dr. Avitia at 4:36 pm on09/26/24. Reading Location: [facility] Head/Neck CTA 09/26/24 17:06 IMPRESSION: 1. 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 Correlation with CT perfusion or MRI recommended to evaluate for chronicity. 2. 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 3. Biapical ground-glass opacities with central tracheal secretions, most compatible with aspiration pneumonitis/pneumonia. Dr. Newberry discussed critical findings via telephone with Dr. Berrios At 6:31 pm on 09/26/24. Reading Location: [facility] Active Medications Active Medications Active Medications: Current Medications Generic Name Dose Route Start Last Admin Trade Name Freq PRN Reason Stop Dose Admin Acetaminophen 650 mg 09/26/24 19:19 Acetaminophen 325 Mg Tablet PO Q6H PRN PRN Pain 1-10 Or Fever >100.7 Albuterol Sulfate 2.5 mg 09/26/24 19:19 Albuterol 2.5 Mg/3 Ml Vial.Neb. INHALATION Q2H PRN PRN SOB &/OR WHEEZING Aspirin 81 mg 09/27/24 08:00 09/27/24 10:43 Aspirin 81 Mg Tab.Chew PO 81 mg BREAKFAST ALTA Administration Atorvastatin Calcium 80 mg 09/26/24 22:00 09/26/24 21:30 Atorvastatin Calcium 80 Mg Tablet PO 80 mg QHS [facility] Administration Buspirone HCl 10 mg 09/27/24 10:00 09/27/24 10:43 Buspirone 5 Mg Tablet PO 10 mg DAILY ALTA Administration Duloxetine HCl 60 mg 09/27/24 10:00 09/27/24 10:43 Duloxetine Hcl 60 Mg Capsule PO 60 mg DAILY ALTA Administration Fenofibrate 145 mg 09/26/24 22:00 09/26/24 21:30 Fenofibrate 145 Mg Tablet PO 145 mg QHS [facility] Administration Ferrous Sulfate 325 mg 09/27/24 12:00 Ferrous Sulfate 325 Mg Tablet PO DAILY@1200 [facility] Glucagon 1 mg 09/26/24 19:19 Glucagon 1 Mg/Ml Syringe IM X1 PRN HYPOGLYCEMIA Protocol Hydralazine HCl 5 mg 09/26/24 19:19 Hydralazine 20 Mg/Ml Vial IV 09/27/24 19:23 Q30M PRN maintain BP parameters with HR <60 Sodium Chloride 250 mls @ 15 mls/hr 09/26/24 18:49 IV .[id number] PRN Saline Flush Sodium Chloride 250 mls @ 15 mls/hr 09/26/24 18:49 IV .[id number] PRN Additional IVPB Infusion Dextrose 250 mls @ 0 mls/hr 09/26/24 19:19 Dextrose 10%-Water IV .Q0M PRN HYPOGLYCEMIA Protocol As Directed Insulin Aspart 1 unit 09/27/24 10:00 09/27/24 10:44 Insulin Basal Pump SC Not Given UD [facility] Insulin Human Lispro 0 unit 09/26/24 22:00 09/27/24 06:03 Insulin Lispro 100 Unit/Ml Insuln.Pen SC Not Given ACHS [facility] Protocol Labetalol HCl 20 mg 09/26/24 15:39 Labetalol 20 Mg/4 Ml Vial IV 09/27/24 15:39 X1 PRN BLOOD PRESSURE Labetalol HCl 10 - 20 mg 09/26/24 19:19 Labetalol 20 Mg/4 Ml Vial IV 09/27/24 19:23 Q10M PRN PRN maintain BP parameters with HR >/=60 Levothyroxine Sodium 112 mcg 09/27/24 06:00 09/27/24 06:04 Levothyroxine 112 Mcg Tablet PO 112 mcg DAILY@0600 [facility] Administration Melatonin 10 mg 09/26/24 19:19 Melatonin 3 Mg Tablet PO QHS PRN PRN INSOMNIA Metoprolol Succinate 50 mg 09/27/24 10:00 09/27/24 10:43 Metoprolol(Xl)Succ 50 Mg Tablet PO 50 mg DAILY [facility] Administration Protocol Ondansetron HCl 4 mg 09/26/24 19:19 Ondansetron 4 Mg/2 Ml Vial IV Q8H PRN PRN NAUSEA/VOMITING Oxycodone HCl 5 mg 09/26/24 20:44 Oxycodone 5 Mg Tablet PO TID PRN PRN Pain Score 4-10 Pantoprazole Sodium 40 mg 09/26/24 22:00 09/27/24 10:43 Pantoprazole Sodium 40 Mg Tablet PO 40 mg BID [facility] Administration Prednisone 15 mg 09/27/24 08:00 09/27/24 10:43 Prednisone 5 Mg Tablet PO 10/07/24 08:01 15 mg DAILYCM [facility] Administration Prednisone 10 mg 10/08/24 08:00 Prednisone 5 Mg Tablet PO DAILYCM [facility] Senna/Docusate Sodium 2 tablet 09/26/24 19:19 Senna/Docusate Sodium 1 Tablet PO BID PRN PRN Constipation Sodium Chloride 10 - 40 ml 09/26/24 18:49 0.9% Saline Lock 10 Ml Syringe IV UD PRN SALINE FLUSH Tamsulosin HCl 0.4 mg 09/27/24 10:00 09/27/24 10:43 Tamsulosin Hcl 0.4 Mg Capsule PO 0.4 mg DAILY [facility] Administration Ticagrelor 90 mg 09/26/24 22:00 09/27/24 10:43 Ticagrelor 90 Mg Tablet PO 90 mg BID [facility]TA Administration NIHSS NIHSS Nursing Documentation NIHSS Nursing Documentation: NIH Stroke Scale Start: 09/26/24 15:40 Freq: Status: Discharge Protocol: Activity Type Activity Date Activity User E-sign Co-sign Detail Recorded Client Recorded Date Recorded By Document 09/26/24 15:40 [id number] 09/26/24 15:41 EM 09/26/24 15:40 NIH Stroke Scale [NIHSS] A score of 0 is normal or asymptomatic . Total possible score is 42. Inpatient: RN or Physician to activate a stroke alert for onset of new stroke symptoms or with NIHSS increase >/= 3 points. Following change in neurological status, NIHSS will be performed per physician order or more frequently PRN. -1a. Level of Consciousness 0 - Alert; keenly responsive -1b. LOC Questions 0 - Answers BOTH questions correctly -1c. LOC Commands 0 - Performs BOTH tasks correctly -2. Best Gaze 0 - Normal -3. Visual 0 - No visual loss -4. Facial Palsy 0 - Normal symmetrical movements -5a. Left Arm 1 - Drift; arm drifts downward but doesn?t hit the bed -5b. Right Arm 0 - No drift; arm holds 90 ( or 45) degrees for full 10 seconds -6a. Left Leg 1 - Drift; leg falls by the end of 5- seconds, but does not hit bed -6b. Right Leg 0 - No drift; leg holds 30- degree position for full 5 seconds -7. Limb Ataxia 0 - Absent -8. Sensory 0 - Normal; no sensory loss -10. Dysarthria 0 - Normal -11. Extinction and Inattention 0 - No abnormality -Total 2 Query Text:A score of 0 is normal or asymptomatic. Total possible score is 42 . ED: Notify Physician for NIHSS increase by > / = 3 points. Inpatient: RN or Physician to activate a stroke alert for NIHSS increase of > / = 3 points. NIHSS: Ischemic Stroke/TIA Start: 09/26/24 19:23 Text: For PCU Patients: NIH and Neuro Check every 4 Status: Active hours, PRN and with change in RN caregiver. Freq: [id number] Protocol: Activity Type Activity Date Activity User E-sign Co-sign Detail Recorded Client Recorded Date Recorded By Document 09/27/24 11:00 [id number] 09/27/24 11:03 09/27/24 11:00 -1a. Level of Consciousness 0 - Alert; keenly responsive -1b. LOC Questions 0 - Answers BOTH questions correctly -1c. LOC Commands 0 - Performs BOTH tasks correctly -2. Best Gaze 0 - Normal -3. Visual 0 - No visual loss -4. Facial Palsy 0 - Normal symmetrical movements -5a. Left Arm 0 - No drift; arm holds 90 ( or 45) degrees for full 10 seconds -5b. Right Arm 0 - No drift; arm holds 90 ( or 45) degrees for full 10 seconds -6a. Left Leg 0 - No drift; leg holds 30- degree position for full 5 seconds -6b. Right Leg 0 - No drift; leg holds 30- degree position for full 5 seconds -7. Limb Ataxia 0 - Absent -8. Sensory 0 - Normal; no sensory loss -9. Best Language 0 - No aphasia; normal -10. Dysarthria 0 - Normal -11. Extinction and Inattention 0 - No abnormality -Total 0 Query Text:A score of 0 is normal or asymptomatic. Total possible score is 42 . ED: Notify Physician for NIHSS increase by > / = 3 points. Inpatient: RN or Physician to activate a stroke alert for NIHSS increase of > / = 3 points. Coma Scale [Assess] -Eye Opening Spontaneous -Motor Obeys Commands -Verbal Oriented [Total] -Coma Scale Total 15 09/27/24 1145 <Electronically signed by Fred Talbert MD> Cosigner Signature (if applicable): CC: Dr. Brandt Winter MD; Dr. Angel Avitia MD~ Signed [facility] Work Phone: [phone]) 497-790406-28-2025 History and physical note Author Xiao Berrios [facility] Note Date/Time September 26, 2024 8:18 pm [facility] Medical Records Department [address] [place] [address] H&P Exam - Hospitalist 09/26/24 1827 MR#: [id number] Acct: [id number] Name: KRUNAL LEOS Rep #:[id number] : 1965 59 From: Xiao Berrios MD PCP: Dr. Brandt Winter MD Status:ADM IN Location: [facility] [id number] HPI - General General Date of Admission: 09/26/24 Date of Service: 09/26/24 Chief Complaint: Left-sided numbness and weakness, virtually resolved but still difficulty getting around HPI Narrative KRUNAL LEOS, is a 59-year-old male history of CVA, chronic respiratory failure on home O2, BPH, depression, type 2 diabetes on insulin pump, KIANNA, anemia, CHF who presented to [facility] ED 09/26/2024 due to tingling weakness on left side that started Saturday afternoon. Patient with left-sided facial droop, left arm paresthesias, left leg paresthesias, left arm weakness, left leg weakness and difficulty with ambulation. Patient was on aspirin, Brilinta, and Eliquis but these were all stopped because he had a lung biopsy todetermine the cause of his lung disease and chronic hypoxia at but did take his medicine last evening and this morning. In the ED patient afebrile, heart rate 84 with blood pressure 133/64, respiratory rate 18 and pulse ox 97% on 4 L of O2. CBC with white blood cell count of 14, hemoglobin 9.1, platelet 237. BMP with BUN of 31 and creatinine 1.26, similar to previous with a glucose of 246. Troponin 47. PT/INR 13.[address] with chronic changes but no acute intracranial finding. Patient outside window for any intervention so stroke call not initiated, hospitalist contacted for admission for further stroke workup and PT/OT eval and for teleneurology to see patient inconsult. Patient evaluated at bedside with present. They report that Saturday before last he stopped his Brilinta and then on Saturday he stopped his Eliquis and aspirin so he could have a biopsy (09/24) and restarted his triple therapy yesterday however yesterday at 2 PM he developed left-sided numbness and weakness and facial droop. He did not come to the hospital as he said things have happened similar to this before and symptoms resolved so he figured they would resolve and that he did not need to come to the hospital. Symptoms are almost resolved but he still having little bit of a difficult time getting around/ambulating which is why he finally came to the hospital. Time myexam he reports sensation is the same on both sides, he possibly feels very slightly weak in his left leg compared to his right but said weakness is only completely resolved and his facial droop is resolved and has no difficulty with his speech or mental status. Yesterday did have a bit of a headache on the right side which has since resolved. Does have cough and shortness of breath but that is what he is undergoing pulmonary workup for. No other new acute complaints at time of my exam. 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 Morbid obesity with BMI of 45.0-49.9, adult Atherosclerotic heart disease of [place] coronary artery without angina pectoris Mini stroke [...] mg capsule 0.4 mg PO DAILY prostate 12/1509/26/24 History duloxetine 60 mg capsule,delayed 60 mg PO DAILY depres wanda 04/17/18 09/26/24 History release (Cymbalta) 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,equity structurer,cont #1 ea 07/26/20 Unknown Rx (Dexcom G6 Rn Clinical) atorvastatin 80 mg tablet (Lipitor) 80 mg PO QHS arsenio sterol 09/04/21 09/25/24 History 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 transmitter (Dexcom #1 ea 12/29/21 Unkno wn Rx G6 Transmitter device) infusion set for insulin pump 10/08/22 Unknown Histor y insulin pump controller 10/08/22 Unknown History 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 sensor (Dexcom G6 #1 ea 02/25/23 Unknown Rx Sensor device) insulin regular hum U-500 conc 500 75 unit (0.15 mL) c ontinuous 11/11/23 09/26/24 Rx unit/mL subcutaneous soln (Humulin subcutaneous infusi on DAILY blood R U-500 (Concentrated) Insulin) sugar #20 mL ferrous sulfate 325 mg (65 mg 325 mg PO DAILY anemia 1 05/03/23 09/26/24 History iron) tablet (Feosol) amlodipine 5 mg tablet 5 mg PO QDAY blood pressure 03/13/24 09/26/24 History aspirin 325 mg tablet 325 mg PO DAILY heart health 03/13/24 09/26/24 History metoprolol succinate 100 mg 100 mg PO DAILY heart #90 tabs 03/27/24 09/26/24 Rx tablet,extended release 24 hr lisinopril 40 mg tablet 40 mg PO DAILY blood pressur e 04/12/24 09/26/24 History levothyroxine 112 mcg tablet 112 mcg PO DAILY thyroid 04/24/24 09/26/24 History ticagrelor 90 mg tablet (Brilinta) 90 mg PO BID 09/26/24 History furosemide 40 mg tablet (Lasix) 40 mg PO BID diuretic #270 tabs 06/23/24 09/26/24 Rx pantoprazole 40 mg tablet,delayed 40 mg PO BID acid re flux #60 tabs 07/22/24 09/26/24 Rx release (Protonix) empagliflozin 25 mg tablet 25 mg PO DAILY diabetes #30 tabs 08/12/24 09/26/24 Rx (Jardiance) apixaban 5 mg tablet (Eliquis) 5 mg PO BID blood thinn er #180 tabs 08/31/24 09/26/24 Rx buspirone 10 mg tablet 10 mg PO .1-3 times daily An xiety 09/16/24 09/26/24 History oxycodone-acetaminophen 5 mg-325 1 tab PO TID PRN pain 09/16/24 09/25/24 History mg tablet prednisone 5 mg tablet See Rx Instructions PO .COMP SOFY 09/16/24 09/26/24 History fenofibrate micronized 134 mg 134 mg PO QHS 09/26/24 0 09/25/24 History capsule Allergy/AdvReac Type Severity Reaction Status Date / Time metoclopramide HCl (From Allergy Severe Anaphylaxis Verified 09/16/24 10:05 [place]) Family History Brother Heart disease Mother CVA [...] you participate in: none ROS ROS Narrative General: Denies fever/chills HENT: Had a bit of a right sided headache yesterday that is resolved, denies stuffy nose, denies sore throat EYES: Denies changes in vision Resp: Some cough with shortness of breath which is presently being worked up Cardiac: Denies chest pain GI: Denies abdominal pain, denies changes in bowel, denies nausea/vomiting : Denies changes in urination Extremity: Denies swelling MSK: Had some left-sided weakness, virtually resolved Neuro: Denies any numbness/tingling currently, this is resolved Heme: Denies any bleeding or bruising Skin: Denies rashes Psychiatric: No complaints voiced Vital Signs Vital Signs Vital Signs: 09/26/24 15:29 09/26/24 15:39 09/26/24 15:41 Temperature 97.9 F Temperature Source Oral Pulse Rate 84 78 Respiratory Rate 18 25 H Blood Pressure 133/64 H 133/64 H Blood Pressure Mean 87 87 Pulse Ox 97 95 Oxygen Delivery Method Nasal Cannula Nasal Cannula Nasal Cannula Oxygen Flow Rate (L/min) 4 4 4 09/26/24 16:00 09/26/24 16:09 09/26/24 16:30 Temperature Temperature Source Pulse Rate 79 91 79 Respiratory Rate 26 H 23 H 26 H Blood Pressure 146/64 H 134/104 H 146/73 H Blood Pressure Mean 88 114 97 Pulse Ox 96 Oxygen Delivery Method Nasal Cannula Oxygen Flow Rate (L/min) 3 09/26/24 17:19 09/26/24 17:19 09/26/24 17:19 Temperature Temperature Source Pulse Rate 76 73 Respiratory Rate 26 H 19 H Blood Pressure 126/50 H 126/50 H 126/50 H Blood Pressure Mean 72 72 72 Pulse Ox 94 97 Oxygen Delivery Method Nasal Cannula Oxygen Flow Rate (L/min) 4 09/26/24 17:30 09/26/24 17:49 09/26/24 18:00 Temperature Temperature Source Pulse Rate Respiratory Rate Blood Pressure 133/64 H Blood Pressure Mean 84 Pulse Ox 96 91 Oxygen Delivery Method Oxygen Flow Rate (L/min) 09/26/24 18:10 Temperature 97.8 F Temperature Source Pulse Rate 74 Respiratory Rate 26 H Blood Pressure 133/64 H Blood Pressure Mean 87 Pulse Ox 94 Oxygen Delivery Method Oxygen Flow Rate (L/min) Physical Exam Narrative General: Alert, oriented, no apparent distress HEENT: Atraumatic, normocephalic Eyes: Anicteric, normal conjunctiva, extraocular movements intact, pupils equal Neck: Supple Respiratory: Diminished at the bases in part due to habitus, normal respiratory effort Cardiovascular: Regular rate and rhythm GI: Soft, nontender, nondistended Extremities: No edema Musculoskeletal: Strength 5+ out of 5 in right upper extremity, 5 out of 5 left upper extremity, 5+ out of 5 right lower extremity, 5 out of 5 left lower extremity Neuro: No overt focal neurological deficits, cranial nerves II through XII intact, [id number] with a little difficulty in the left hand but ultimately able to make it to finger, no difficulty on the right, reports sensation feels the same on both sides Skin: No rashes appreciated Psych: Cooperative Results Lab / Micro Data 09/26/24 15:40 09/26/24 15:40 Labs: Laboratory Results - last 24 hr 09/26/24 15:40: WBC 14.0 H, RBC 3.79 L, Hgb 9.1 L, Hct 30.0 L, MCV 79.2 L, MCH 24.0 L, MCHC 30.3 L, RDW Std Deviation 50.9 H, RDW Coeff of Gavi 17.9 H, Plt Count 237, MPV 10.4, Immature Gran % (Auto) 0.800, Neut % (Auto) 85.3 H, Lymph %(Auto) 4.2 L, Wharton % (Auto) 8.7, Eos % (Auto) 0.6, Baso % (Auto) 0.4, Absolute Neuts (auto) 11.9 H, Absolute Lymphs (auto) 0.58 L, Nucleated RBC % 0, PT 13.1, INR 1.0, APTT 20.8 L, Sodium 138, Potassium 4.2, Chloride 100, Carbon Dioxide 22.9, Anion Gap 15, BUN 31 H, Creatinine 1.26 H, Est GFR (MDRD) Non-Af 65, BUN/Creatinine Ratio 24.6 H, Glucose 246 H, Calcium 9.0, Troponin T High Sens 47 H Imaging Radiology Impression Brain CT 09/26/24 15:39 IMPRESSION: No acute intracranial finding. Chronic microvascular ischemic changes and age- related changes as described. Dr. Newberry discussed these findings via telephone with Dr. Avitia at 4:36 pm on09/26/24. Reading Location: [id number] Assessment & Plan Assessment/Plan (1) Acute CVA (cerebrovascular accident): PLAN: Plan # Left-sided paresthesias, weakness, facial droop -Last known well 09/25 around 2 PM, symptoms have almost completely resolved -Admit to tele -CT head w/ no acute changes -CTA head and neck demonstrated progression to now complete occlusion of the M1 segment of the right MCA with threadlike distal reconstitution most compatible with acute/subacute occlusion with unchanged occlusion of left V2 and V3 vertebral artery segments with retrograde filling of the left V4 and incidentally noted groundglass opacities in the lung and central tracheal secretions -Patient was evaluated by [facility] early in 2024 and intervention for his carotid stenosis was not recommended at that time and his rate MCA near occlusion was noted with plans for medical management -MRI ordered -NIH q2hr - Patient resumed on his aspirin, and Brilinta -Echo ordered -PT/OT/Speech eval -Teleneuro consult ordered-spoke with teleneurology after CTA findings were available, given symptoms greater than 24 hours ago and patient's symptoms significantly improved there is no intervention recommended. Reviewed case, vitals, labs, history, neuroexam, imaging with teleneurology and it was recommended to resume patient's aspirin and Brilinta but hold Eliquis at this time, proceed with the MRI and is recommended that neurochecks were Q2 and patient be monitored in stepdown status and if any changes or fluctuations in neurostatus to contact [facility] as patient will likely need transferred. It was alsorecommended to keep patient's blood pressure over 120. He was advised that it was reasonable to keep patient in our institution given no acute intervention necessary that it could be offered to the patient if he would prefer to be transferred. When evaluated patient at bedside, told him about findings and discussed transfer versus staying at [facility], patient's neuroexam is exactly the same he reports overall he feels well, patient would like to stay at [facility] and understands that if he were to have any neurochanges or concerns he would need to be transferred and he is okay with that and verbalizes his understanding - Will decrease metoprolol and hold amlodipine and lisinopril given recommendations to avoid blood pressures less than 120, can add back as tolerated or as neurology advises # History of CVA - Patient had recurrent TIA/CVA symptoms despite being on double therapy so he has been on triple therapy and following with vascular, these medications were held for lung biopsy, these were resumed last night - It was recommended at this time to only continue aspirin and Brilinta so thesehave been restarted, other management as above # Elevated troponin -Troponin 47, no chest pain reported, suspect secondary to patient's underlying multiple comorbid conditions in addition to acute stress -Will be getting echo as above # Chronic hypoxic respiratory failure on home O2 - Being worked up at - Continue home medications -CTA noted some groundglass opacities in the lungs and some tracheal secretions and correlate if there could be component of aspiration -Incentive spirometer -Patient to be evaluated by speech therapy - Continued prednisone from patient's home med list #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 -Glucose checks and sliding scale insulin - Patient does have insulin pump, patient usually uses this while admitted, patient awake alert and oriented, able to use his insulin pump #Chronic BPH with obstruction -Continue home medications #Depression/anxiety -Continue home medications #Hypothyroidism -Continue Synthroid #Hypertension - Continue home antihypertensives #KIANNA - Has primarily been using oxygen at home overnight and does not been using his NIPPV, asked if he would like to wear it here and he was unsure, advised to let us know if he would be amenable to wearing it while inpatient # History of heart failure with preserved ejection fraction not in exacerbation -Daily weights, I's and O's -Monitor volume status - Holding Lasix, he was initially advised to give fluids but when discussing patient's heart history he was advised at least to avoid hypovolemia, ultimatelywas decided to hold Lasix and monitor volume status #GERD -Continue PPI #DVT ppx: Patient on Eliquis Xiao Berrios MD Time spent in the patient's overall evaluation, decision-making process, review of diagnostic data, adjustment of management, discussion with other providers, nursing and ancillary staff involved in patient's care documentation, 100 Minutes Charges/Coding Visit Charges Inpatient E&M: 14385 Init Hosp L3 09/26/242017 <Electronically signed by Xiao Berrios MD> Cosigner Signature (if applicable): CC: Dr. Brandt Winter MD; Dr. Xiao Berrios MD~ Signed [facility] Work Phone: [phone]) 618-997506-28-2025 Discharge summary Author Angel Avitia [facility] Note Date/Time September 26, 2024 5:05 pm [facility] Medical Records Department [address] [place] [address] Emergency Department Summary 09/26/24 MR#: [id number] Acct: [id number] Name: KRUNAL LEOS Rep #:[id number] : 1965 59 From: Angel Avitia MD PCP: Dr. Brandt Winter MD Status:REG ER Location: ED HPI History of Present Illness Chief Complaint: Numb/Ting Detail of Chief Complaint: Patient has tingling and weakness left side. Onset between 141 30 on Informant: patient and spouse/S.O. Onset/Context/Timing [...] to type 2 diabetes, obstructive sleep apnea, insulin- dependent diabetic on insulin pump, anemia, positive rheumatoid [...] and lung disease. This was performed at [facility]. Patient did take his medicine last evening [...] symptoms: Yes Recent Illness/Hospitalization: Yes (Lung biopsy [facility]) [facility] Medical History Hyperlipidemia Ischemic cerebrovascular accident (CVA) CHF (congestive heart failure) Chronic respiratory failure with hypoxia KIANNA (obstructive sleep apnea) Presence of insulin pump CKD (chronic kidney disease) Hypothyroidism Essential (primary) hypertension Diabetes Acute hypoxemic respiratory failure Chronic diastolic CHF (congestive heart failure) Obesity Exertional shortness of breath Iron deficiency anemia due to chronic blood loss Current use of usp anticoagulation Morbid obesity with BMI of 45.0-49.9, adult Atherosclerotic heart disease of [place] coronary artery without angina pectoris Mini stroke [...] wanda 04/17/18 04/24/24 08:10 History release (Cymbalta) 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,equity structurer,cont #1 ea 07/26/20 Unknown Rx (Dexcom G6 Rn Clinical) atorvastatin 80 mg tablet (Lipitor) 80 mg [...] tablet 5 mg PO QDAY blood pressure 03/13/24 04/24/24 08:08 History aspirin 325 mg tablet 325 [...] (From Allergy Severe Anaphylaxis Verified 09/16/24 10:05 [place]) Family History Brother Heart disease Mother CVA [...] is old. 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 [place] Coma Scale: document GCS findings Spontaneous Obeys [...] 85.3 H Lymph % (Auto) 4.2 L Wharton % (Auto) 8.7 Eos % (Auto) 0.6 [...] intracranial finding. Chronic microvascular ischemic changes and age- related changes as described. Dr. Newberry discussed these findings via telephone with Dr. Avitia at 4:36 pm on09/26/24. Reading Location: [facility] Radiologist informing there is no evidence of acute stroke or hemorrhage. CT was reviewed by me. There is nothing obvious that I saw or any change compared to prior. EKG Initial EKG: Attestation: I personally reviewed and interpreted this EKG as follows: Interpretation: Sinus Rhythm (Rate is 82. [place] interval 238 ms. QRS durations 106 ms. QT durations are 96 ms. [place] is normal. There is evidence of LVH. [...] hyperglycemia Prescriptions: No Action (DME) Dexcom G6 Rn Clinical Misc See Rx Instructions .ROUTE .MEDSUPPLY Qty: [...] MD [Primary Care Provider] - Print Language: Italian Disposition Disposition: Acute Care Hospital [facility] NIHSS NIHSS 1a. Level of Consciousness: [...] your Primary Care Provider. Call [facility] ([phone]) or report to the closest Emergency Room. Call 911 if necessary. 09/26/241704 <Electronically signed by Angel Avitia MD> Cosigner Signature (if applicable): CC: Dr. Brandt Winter MD ~ Signed [facility] Work Phone: 1(512) 481-475006-28-2025 Radiology Diagnostic study [facility]06-28-2025 Discharge summary [facility] Medical Records Department [address] [place] [address] Emergency Department Summary 09/26/24 MR#: [id number] Acct: [id number] Name: KRUNAL LEOS Rep #:[id number] : [...] has history of CVA, chronic respiratory failure, microalbuminemiadue to type 2 diabetes, obstructive sleep apnea, [...] and lung disease. This was performed at [facility]. Patient did take his medicine last evening [...] symptoms: Yes Recent Illness/Hospitalization: Yes (Lung biopsy 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 Morbid obesity with BMI of 45.0-49.9, adult Atherosclerotic heart disease of [place] coronary artery without angina pectoris Mini stroke [...] infarction (NSTEMI) (03/28/20) TIA (transient ischemic attack) (2019) Hodgkin disease GERD (gastroesophageal reflux disease) BPH (benign prostatic hyperplasia) Anxiety and depression Morbid obesity with BMI of 45.0-49.9, adult Nephrolithiasis Diabetes mellitus, type II Home Medications ?Medication ?Instructions ?Recorded ?Last Taken ?Type tamsulosin 0.4 mg capsule 0.4 mg PO DAILY prostate 12/1511/16/23 History duloxetine 60 mg capsule,delayed 60 mg PO DAILY depres wanda 04/17/18 04/24/24 08:10 History release (Cymbalta) 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,equity structurer,cont #1 ea 07/26/20 Unknown Rx (Dexcom G6 Rn Clinical) atorvastatin 80 mg tablet (Lipitor) 80 mg [...] tablet 5 mg PO QDAY blood pressure 03/13/24 04/24/24 08:08 History aspirin 325 mg tablet 325 [...] on exertion and other Details: Respiratory symptoms arechronic. ; Denies cough or paroxysmal nocturnal dyspnea [...] is old. 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 [place] Coma Scale: document GCS findings Spontaneous Obeys [...] been elevated on prior tests. BUN/creatinine are elevated.They are approximately patient's baseline. Coags are unremarkable. [...] 85.3 H Lymph % (Auto) 4.2 L Wharton % (Auto) 8.7 Eos % (Auto) 0.6 [...] intracranial finding. Chronic microvascular ischemic changes and age- related changes as described. Dr. Newberry discussed these findings via telephone with Dr. Avitia at 4:36 pm on09/26/24. Reading Location: [facility] Radiologist informing there is no evidence of acute stroke or hemorrhage. CT was reviewed by me. There is nothing obvious that I saw or any change compared to prior. EKG Initial EKG: Attestation: I personally reviewed and interpreted this EKG as follows: Interpretation: Sinus Rhythm (Rate is 82. [place] interval 238 ms. QRS durations 106 ms. QT durations are 96 ms. Windham is normal. There is evidence of LVH. There is evidence of premature ventricular beats.Patient does have evidence of LVH by voltage [...] hyperglycemia Prescriptions: No Action (DME) Dexcom G6 Rn Clinical Misc See Rx Instructions .ROUTE .MEDSUPPLY Qty: [...] MD [Primary Care Provider] - Print Language: Italian Disposition Disposition: Acute Care Hospital [facility] NIHSS NIHSS 1a. Level of Consciousness: [...] your Primary Care Provider. Call [facility] ([phone]) or report tothe closest Emergency Room. Call 911 if necessary. 09/26/24 1705 Cosigner Signature (if applicable): CC: Dr. Brandt Winter MD ~ Signed [facility]06-28-2025 Radiology Diagnostic study note [facility] Imaging Services [address] [place] [address] STROKE Brain/Head without Cont MR#: [id number] Acct: [id number] Name: KRUNAL LEOS Rep #: [id number] : 1965 M 59 From: Astrid Newberry MD PCP: Dr. Brandt Winter MD Status: REG ER Study:STROKE Brain/Head without Cont Date of Exam: 09/26/24 Exam# [id number] Ordering Dr: Domonique Avitia MD EXAM: STROKE [...] intracranial finding. Chronic microvascular ischemic changes and age- related changes as described. Dr. Newberry discussed these findings via telephone with Dr. Avitia at 4:36 pm on09/26/24. Reading Location: [id number] CC: Dr. Brandt Winter MD; Dr. Angel Avitia MD ~ Vegetable Grower: Signed [facility]06-28-2025 Discharge summary Author Angel Avitia [facility] Note Date/Time September 26, 2024 5:05 pm [facility] Medical Records Department [address] [place] [address] Emergency Department Summary 09/26/24 MR#: [id number] Acct: [id number] Name: KRUNAL LEOS Rep #:[id number] : 1965 59 From: Angel Avitia MD PCP: Dr. Brandt Winter MD Status:REG ER Location: ED HPI History of Present Illness Chief Complaint: Numb/Ting Detail of Chief Complaint: Patient has tingling and weakness left side. Onset between 1413 on Informant: patient and spouse/S.O. Onset/Context/Timing Onset: [...] to type 2 diabetes, obstructive sleep apnea, insulin- dependent diabetic on insulin pump, anemia, positive rheumatoid [...] and lung disease. This was performed at [facility]. Patient did take his medicine last evening [...] symptoms: Yes Recent Illness/Hospitalization: Yes (Lung biopsy 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 Morbid obesity with BMI of 45.0-49.9, adult Atherosclerotic heart disease of [place] coronary artery without angina pectoris Mini stroke [...] infarction (NSTEMI) (03/28/20) TIA (transient ischemic attack) (2019) Hodgkin disease GERD (gastroesophageal reflux disease) BPH (benign prostatic hyperplasia) Anxiety and depression Morbid obesity with BMI of 45.0-49.9, adult Nephrolithiasis Diabetes mellitus, type II Home Medications ?Medication ?Instructions ?Recorded ?Last Taken ?Type tamsulosin 0.4 mg capsule 0.4 mg PO DAILY prostate 12/1511/16/23 History duloxetine 60 mg capsule,delayed 60 mg PO DAILY depres wanda 04/17/18 04/24/24 08:10 History release (Cymbalta) 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,equity structurer,cont #1 ea 07/26/20 Unknown Rx (Dexcom G6 Rn Clinical) atorvastatin 80 mg tablet (Lipitor) 80 mg [...] tablet 5 mg PO QDAY blood pressure 03/13/24 04/24/24 08:08 History aspirin 325 mg tablet 325 [...] is old. 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 [place] Coma Scale: document GCS findings Spontaneous Obeys [...] 85.3 H Lymph % (Auto) 4.2 L Wharton % (Auto) 8.7 Eos % (Auto) 0.6 [...] intracranial finding. Chronic microvascular ischemic changes and age- related changes as described. Dr. Newberry discussed these findings via telephone with Dr. Avitia at 4:36 pm on09/26/24. Reading Location: [facility] Radiologist informing there is no evidence of acute stroke or hemorrhage. CT was reviewed by me. There is nothing obvious that I saw or any change compared to prior. EKG Initial EKG: Attestation: I personally reviewed and interpreted this EKG as follows: Interpretation: Sinus Rhythm (Rate is 82. [place] interval 238 ms. QRS durations 106 ms. QT durations are 96 ms. [place] is normal. There is evidence of LVH. [...] hyperglycemia Prescriptions: No Action (DME) Dexcom G6 Rn Clinical Misc See Rx Instructions .ROUTE .MEDSUPPLY Qty: [...] MD [Primary Care Provider] - Print Language: Italian Disposition Disposition: Acute Care Hospital [facility] NIHSS NIHSS 1a. Level of Consciousness: [...] problems, contact your Primary Care Provider. Call [facility] ([phone]) or report to the closest Emergency Room. Call 911 if necessary. 09/26/241704 <Electronically signed by Angel Avitia MD> Cosigner Signature (if applicable): CC: Dr. Brandt Winter MD ~ Signed [facility] Work Phone: [phone] 550-953306-26-2025 Hospital Discharge instructions* Discharge Instructions* Dick Nguyen MD - 09/24/2024 9:17 AM EDT [facility] Pulmonology The anesthetics, sedatives or narcotics which [...] on weekends: / and ask for the Decision Unit Rn on-call(Pager Number: [phone]) documented in this [facility] Work Phone: [phone] 247-187806-26-2025 Attending History and physical note* Maeve Pringle [...] Pulmonary, Critical Care, and Sleep Medicine Consultation [address] [facility] Patient was referred by his PCP (Dr. [...] surgery total pulmonary decortication in 2016 at [facility]. He was hospitalized in [place] from 03/02-03/04/2024 for acute hypoxic respiratory failure. [...] Review Audit Reviewed by Heavenly Sparks MA (Manager [employer]) on 08/28/24 at 1158 Medication Order Taking? Sig Documenting Provider Last Dose Status albuterol 90 mcg/actuation inhaler [id number] INHALE 2 PUFFS BY MOUTH EVERY 4 HOURS NEEDED FOR SHORTNESS OF BREATH OR WHEEZING Historical Provider, Active amLODIPine (Norvasc) 5 mg tablet [id number] Take 1 tablet (5 mg) by mouth once daily. Historical ProviderMD Active aspirin 325 mg tablet [id number] Take 1 tablet (325 mg) by mouth once daily. Historical ProviderLORNActive atorvastatin (Lipitor) 80 mg tablet [id number] Take 1 tablet (80 mg) by mouth once daily at bedtime.Historical ProviderMD Active betamethasone, augmented, (Diprolene) 0.05 % lotion [id number] APPLY TO RASH ON THE TRUNK OR SCALP 1-2 TIMES DAILY NEEDED Historical ProviderMD Active bismuth subsalicylate (Pepto Bismol) 262 mg chewable tablet [id number] CHEW AND SWALLOW 2 TABLETS BYMOUTH 3 TIMES A DAY for 2 weeks. max 16 tablets per 24 hours Patient not taking: Reported on 08/07/2024 Historical ProviderMD Active Brilinta 90 mg tablet [id number] 1 tablet (90 mg). Historical Provider, Active busPIRone (Buspar) 10 mg tablet [id number] Take 1 tablet (10 mg) by mouth 3 times a day. Historical Provider, Active clopidogrel (Plavix) 75 mg tablet [id number] Take 1 tablet (75 mg) by mouth early in the morning.. Historical Provider, Active dapagliflozin propanediol (Farxiga) 5 mg [id number] Take 1 tablet (5 mg) by mouth once daily. Historical ProviderMD Active Dexcom G6 Sensor device [id number] USE DIRECTED FOR CONTINUOUS BLOOD GLUCOSE MONITORING, CHANGE SENSOR EVERY 10 DAYS Historical ProviderMD Active DULoxetine (Cymbalta) [address] capsule [id number] Take 1 capsule (60 mg) by mouth once daily. Historical ProviderMD Active Eliquis 5 mg tablet [id number] Take 1 tablet (5 mg) by mouth 2 times a day. Historical ProviderMD Active ergocalciferol (Vitamin D-2) 1250 mcg (50,000 units) capsule [id number] Take 1 capsule (1,250 mcg) by mouth. Historical ProviderMD Active fenofibrate (Tricor) 54 mg tablet [id number] Take 1 tablet (54 mg) by mouth once daily. Historical Provider, Active furosemide (Lasix) 40 mg tablet [id number] Take 1 tablet (40 mg) by mouth. Historical ProviderMD Active glimepiride (Amaryl) 4 mg tablet [id number] Take 1 tablet (4 mg) by mouth early in the morning.. Patient not taking: Reported on 08/07/2024 Historical ProviderMD Active glipiZIDE (Glucotrol) 5 mg tablet [id number] Take 1 tablet (5 mg) by mouth. Patient not taking: Reported on 08/07/2024 Historical ProviderMD Active HumuLIN R U-500, Conc, Insulin 500 unit/mL CONCENTRATED injection [id number] INJECT 75 UNITS DAILY VIA CONTINUOUS SUBCUTANEOUS INFUSION. DISCARD VIAL AFTER 40 DAYS Patient not taking: Reported on 08/07/2024 Historical MD Lacey Active Jardiance 25 mg [id number] Take 1 tablet (25 mg) by mouth once daily. Gloria Rahman MD Active levothyroxine (Synthroid, Levoxyl) 112 mcg tablet [id number] Take 1 tablet (112 mcg) by mouth once daily. Gloria ProviderMD Active lisinopril 40 mg tablet [id number] Take 1 tablet (40 mg) by mouth once daily. Gloria ProviderMD Active metFORMIN (Glucophage) 500 mg tablet [id number] Take 1 tablet (500 mg) by mouth 2 times daily (morning and late afternoon). Historical ProviderMD Active metoprolol succinate XL (Toprol-XL) 100 mg 24 hr tablet [id number] TAKE 1 TABLET BY MOUTH DAILY for heart Historical MD Lacey Active Mucinex DM 60-1,200 mg tablet extended release 12 hr [id number] Take 1 tablet by mouth every 12 hours. Gloria Rahman MD Active oxyCODONE-acetaminophen (Percocet) 5-325 mg tablet [id number] Take 1 tablet by mouth 2 times a day as needed. Patient not taking: Reported on 08/07/2024 Gloria Rahman MD Active pantoprazole (ProtoNix) 40 mg EC tablet [id number] Take 1 tablet (40 mg) by mouth. Historical ProviderMD Active potassium citrate CR (Urocit-K-10) 10 mEq ER tablet [id number] Take 1 tablet (10 mEq) by mouth twicea day. Gloria Rahman MD Active predniSONE (Deltasone) 20 mg tablet [id number] Take 0.5 tablets (10 mg) by mouth early in the morning.. Gloria Rahman MD Active predniSONE (Deltasone) 20 mg tablet [id number] Take 2 tablets (40 mg) by mouth once daily. Patient not taking: Reported on 08/07/2024 Rosalino Padron MD Active predniSONE (Deltasone) 5 mg tablet [id number] Take 4 tablets (20 mg) by mouth once daily for 30 days, THEN 3 tablets (15 mg) once daily for 30 days, THEN 2 tablets (10 mg) once daily for 30 days, THEN1 tablet (5 mg) once daily for 14 days. Rosalino Padron MD Active spironolactone (Aldactone) 50 mg tablet [id number] Take 1 tablet (50 mg) by mouth once daily. Patient not taking: Reported on 08/07/2024 Historical Provider, Active tamsulosin (Flomax) 0.4 mg 24 hr capsule [id number] Take 1 capsule (0.4 mg) by mouth once daily. Historical Provider, Active traMADol (Ultram) 50 mg tablet [id number] Take 1 tablet (50 mg) by mouth. [...] once above completed Rosalino Padron MD 08/28/2024 [facility] Work Phone: [phone] 628-381706-26-2025 History and physical note* Maeve Pringle MD [...] Pulmonary, Critical Care, and Sleep Medicine Consultation [address] [facility] Patient was referred by his PCP (Dr. [...] surgery total pulmonary decortication in 2016 at [facility]. He was hospitalized in [place] from 03/02-03/04/2024 for acute hypoxic respiratory failure. [...] Review Audit Reviewed by Heavenly Sparks MA (Manager [employer]) on 08/28/24 at 1158 Medication Order Taking? Sig Documenting Provider Last Dose Status albuterol 90 mcg/actuation inhaler [id number] INHALE 2 PUFFS BY MOUTH EVERY 4 HOURS NEEDED FOR SHORTNESS OF BREATH OR WHEEZING Historical Provider, Active amLODIPine (Norvasc) 5 mg tablet [id number] Take 1 tablet (5 mg) by mouth once daily. Historical Provider, Active aspirin 325 mg tablet [id number] Take 1 tablet (325 mg) by mouth once daily. Historical ProviderLORNActive atorvastatin (Lipitor) 80 mg tablet [id number] Take 1 tablet (80 mg) by mouth once daily at bedtime.Historical ProviderMD Active betamethasone, augmented, (Diprolene) 0.05 % lotion [id number] APPLY TO RASH ON THE TRUNK OR SCALP 1-2 TIMES DAILY NEEDED Historical ProviderMD Active bismuth subsalicylate (Pepto Bismol) 262 mg chewable tablet [id number] CHEW AND SWALLOW 2 TABLETS BYMOUTH 3 TIMES A DAY for 2 weeks. max 16 tablets per 24 hours Patient not taking: Reported on 08/07/2024 Historical ProviderMD Active Brilinta 90 mg tablet [id number] 1 tablet (90 mg). Historical ProviderMD Active busPIRone (Buspar) 10 mg tablet [id number] Take 1 tablet (10 mg) by mouth 3 times a day. Historical ProviderMD Active clopidogrel (Plavix) 75 mg tablet [id number] Take 1 tablet (75 mg) by mouth early in the morning.. Historical ProviderMD Active dapagliflozin propanediol (Farxiga) 5 mg [id number] Take 1 tablet (5 mg) by mouth once daily. Historical ProviderMD Active Dexcom G6 Sensor device [id number] USE DIRECTED FOR CONTINUOUS BLOOD GLUCOSE MONITORING, CHANGE SENSOR EVERY 10 DAYS Historical ProviderMD Active DULoxetine (Cymbalta) [address] capsule [id number] Take 1 capsule (60 mg) by mouth once daily. Historical ProviderMD Active Eliquis 5 mg tablet [id number] Take 1 tablet (5 mg) by mouth 2 times a day. Historical ProviderMD Active ergocalciferol (Vitamin D-2) 1250 mcg (50,000 units) capsule [id number] Take 1 capsule (1,250 mcg) by mouth. Historical ProviderMD Active fenofibrate (Tricor) 54 mg tablet [id number] Take 1 tablet (54 mg) by mouth once daily. Historical ProviderMD Active furosemide (Lasix) 40 mg tablet [id number] Take 1 tablet (40 mg) by mouth. Historical ProviderMD Active glimepiride (Amaryl) 4 mg tablet [id number] Take 1 tablet (4 mg) by mouth early in the morning.. Patient not taking: Reported on 08/07/2024 Gloria Rahman MD Active glipiZIDE (Glucotrol) 5 mg tablet [id number] Take 1 tablet (5 mg) by mouth. Patient not taking: Reported on 08/07/2024 Gloria Rahman MD Active HumuLIN R U-500, Conc, Insulin 500 unit/mL CONCENTRATED injection [id number] INJECT 75 UNITS DAILY VIA CONTINUOUS SUBCUTANEOUS INFUSION. DISCARD VIAL AFTER 40 DAYS Patient not taking: Reported on 08/07/2024 Gloria Rahman MD Active Jardiance 25 mg [id number] Take 1 tablet (25 mg) by mouth once daily. Gloria Rahman MD Active levothyroxine (Synthroid, Levoxyl) 112 mcg tablet [id number] Take 1 tablet (112 mcg) by mouth once daily. Gloria Rahman MD Active lisinopril 40 mg tablet [id number] Take 1 tablet (40 mg) by mouth once daily. Gloria Rahman MD Active metFORMIN (Glucophage) 500 mg tablet [id number] Take 1 tablet (500 mg) by mouth 2 times daily (morning and late afternoon). Gloria Rahman MD Active metoprolol succinate XL (Toprol-XL) 100 mg 24 hr tablet [id number] TAKE 1 TABLET BY MOUTH DAILY for heart Historical MD Lacey Active Mucinex DM 60-1,200 mg tablet extended release 12 hr [id number] Take 1 tablet by mouth every 12 hours. Gloria Rahman MD Active oxyCODONE-acetaminophen (Percocet) 5-325 mg tablet [id number] Take 1 tablet by mouth 2 times a day as needed. Patient not taking: Reported on 08/07/2024 Gloria Rahman MD Active pantoprazole (ProtoNix) 40 mg EC tablet [id number] Take 1 tablet (40 mg) by mouth. Gloria Rahman MD Active potassium citrate CR (Urocit-K-10) 10 mEq ER tablet [id number] Take 1 tablet (10 mEq) by mouth twicea day. Gloria Rahman MD Active predniSONE (Deltasone) 20 mg tablet [id number] Take 0.5 tablets (10 mg) by mouth early in the morning.. Gloria Rahman MD Active predniSONE (Deltasone) 20 mg tablet [id number] Take 2 tablets (40 mg) by mouth once daily. Patient not taking: Reported on 08/07/2024 Rosalino Padron MD Active predniSONE (Deltasone) 5 mg tablet [id number] Take 4 tablets (20 mg) by mouth once daily for 30 days, THEN 3 tablets (15 mg) once daily for 30 days, THEN 2 tablets (10 mg) once daily for 30 days, THEN1 tablet (5 mg) once daily for 14 days. Rosalino Padron MD Active spironolactone (Aldactone) 50 mg tablet [id number] Take 1 tablet (50 mg) by mouth once daily. Patient not taking: Reported on 08/07/2024 Historical Provider, Active tamsulosin (Flomax) 0.4 mg 24 hr capsule [id number] Take 1 capsule (0.4 mg) by mouth once daily. Historical Provider, Active traMADol (Ultram) 50 mg tablet [id number] Take 1 tablet (50 mg) by mouth. [...] Rosalino Padron MD 08/28/2024 documented in this [facility] Work Phone: [phone]) [phone] Evaluation note* Diagnosis Onset Date Resolution Status Admit Date Ischemic cerebrovascular accident (CVA) resolved August 17, 2024 11:16am Hyperlipidemia inactive August 17, 2024 11:16am Polyneuropathy inactive August 17, 2024 11:16am Fatigue noneactive August 17, 2024 11:16am Fatigue noneactive September 15 12:53pm CKD (chronic kidney disease) inactiv e September 16, 2024 9:59am Diabetes inactive September 16 9:59am Essential (primary) hypertension inactive September 16, 2024 9:59am Hyperlipidemia inactive September 16, 2024 9:59am Hypothyroidism inactive September 16, 2024 9:59am Microalbuminuria due to type 2 diabetes mellitus inactive September 16 9:59am Obesity inactive September 16 9:59am Presence of insulin pump inactive September 16, 2024 9:59am Insulin pump titration deleted [facility] 2024 9:59am Chronic respiratory failure with hypoxia inactive September 26, 2024 8:20pm Elevated troponin inactive September 262024 8:20pm Essential (primary) hypertension inactive September 26, 2024 8:20pm Hyperlipidemia inactive September 26, 2024 8:20pm Hypothyroidism inactive September 26, 2024 8:20pm Interstitial lung disease inactive September 26, 2024 8:20pm Obesity inactive September 26 8:20pm KIANNA (obstructive sleep apnea) inacti ve September 26, 2024 8:20pm Renal insufficiency inactive September 26, 2024 8:20pm 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 wit h hyperglycemia inactive September 26, 2024 8:20pm Acute CVA (cerebrovascular accident) deleted September 26, 2024 8:20pm Acute right MCA stroke deleted [facility] 2024 8:20pm Ischemic cerebrovascular accident (CVA) resolved October 12, 2024 10:46am Hyperlipidemia inactive October 12, 2024 10:46am Polyneuropathy inactive October 12, 2024 10:46am Fatigue noneactive October 12 10:46am Dyspnea on exertion resolved October 27, 2024 10:16am Ischemic cerebrovascular accident (CVA) resolved October 27, 2024 10:16am Chronic diastolic CHF (congestive heart failure) inactive October 27, 2024 10:16am Essential (primary) hypertension inactive October 27, 2024 10:16am Interstitial lung disease inactive October 27, 2024 10:16am Paroxysmal atrial fibrillation inact nicole October 27, 2024 10:16am Iron deficiency anemia due t o chronic blood loss inactive November 03 025 12:48pm Fatigue noneactive November 12 10:47am Chronic diastolic CHF (congestive heart failure) inactive 2024 12:33pm Chronic respiratory failure with hypoxia inactive November 25 12:33pm Interstitial lung disease inactive November 25, 2024 12:33pm Obesity inactive November 25 025 12:33pm KIANNA (obstructive sleep apnea) inacti ve November 25, 2024 12:33pm Rheumatoid factor positive inactive November 25, 2024 12:33pm Cellulitis resolved November 26, 2 025 11:54am Debility resolved November 26 2 025 11:54am Sepsis resolved November 26 2 025 11:54am [facility] Work Phone: [phone] Radiology Diagnostic study [facility]05-09-2025 History of Present illness Narrative* Rosalino Padron MD - 08/07/2024 2:30 PM EDT Images from the original note were not included. Department of Medicine Division of Pulmonary, Critical Care, and Sleep Medicine Consultation [address] [facility] Patient was referred by his PCP (Dr. [...] surgery total pulmonary decortication in 2016 at [facility]. He was hospitalized in [place] from 03/02-03/04/2024 for acute hypoxic respiratory failure. [...] Review Audit Reviewed by Rivka Gerardo MA (Manager [employer]) on 08/07/24 at 1413 Medication Order Taking? Sig Documenting Provider Last Dose Status albuterol 90 mcg/actuation inhaler [id number] Yes INHALE 2 PUFFS BY MOUTH EVERY 4 HOURS NEEDED FOR SHORTNESS OF BREATH OR WHEEZING Historical ProviderMD Active amLODIPine (Norvasc) 5 mg tablet [id number] Yes Take 1 tablet (5 mg) by mouth once daily. HistoricalProviderMD Active aspirin 325 mg tablet [id number] Yes Take 1 tablet (325 mg) by mouth once daily. Historical ProviderMD Active atorvastatin (Lipitor) 80 mg tablet [id number] Yes Take 1 tablet (80 mg) by mouth once daily at bedtime. Historical ProviderMD Active betamethasone, augmented, (Diprolene) 0.05 % lotion [id number] APPLY TO RASH ON THE TRUNK OR SCALP 1-2 TIMES DAILY NEEDED Historical ProviderMD Active bismuth subsalicylate (Pepto Bismol) 262 mg chewable tablet [id number] CHEW AND SWALLOW 2 TABLETS BYMOUTH 3 TIMES A DAY for 2 weeks. max 16 tablets per 24 hours Patient not taking: Reported on 08/07/2024 Historical ProviderMD Active Brilinta 90 mg tablet [id number] Yes 1 tablet (90 mg). Historical ProviderMD Active busPIRone (Buspar) 10 mg tablet [id number] Yes Take 1 tablet (10 mg) by mouth 3 times a day. Historical ProviderMD Active clopidogrel (Plavix) 75 mg tablet [id number] Take 1 tablet (75 mg) by mouth early in the morning.. Historical ProviderMD Active dapagliflozin propanediol (Farxiga) 5 mg [id number] Take 1 tablet (5 mg) by mouth once daily. Historical ProviderMD Active Dexcom G6 Sensor device [id number] Yes USE DIRECTED FOR CONTINUOUS BLOOD GLUCOSE MONITORING, CHANGE SENSOR EVERY 10 DAYS Historical ProviderMD Active DULoxetine (Cymbalta) [address] capsule [id number] Yes Take 1 capsule (60 mg) by mouth once daily. Historical ProviderMD Active Eliquis 5 mg tablet [id number] Yes Take 1 tablet (5 mg) by mouth 2 times a day. Historical ProviderMD Active ergocalciferol (Vitamin D-2) 1250 mcg (50,000 units) capsule [id number] Take 1 capsule (1,250 mcg) by mouth. Historical ProviderMD Active fenofibrate (Tricor) 54 mg tablet [id number] Yes Take 1 tablet (54 mg) by mouth once daily. Historical ProviderMD Active furosemide (Lasix) 40 mg tablet [id number] Yes Take 1 tablet (40 mg) by mouth. Historical ProviderMD Active glimepiride (Amaryl) 4 mg tablet [id number] Take 1 tablet (4 mg) by mouth early in the morning.. Patient not taking: Reported on 08/07/2024 Historical ProviderMD Active glipiZIDE (Glucotrol) 5 mg tablet [id number] Take 1 tablet (5 mg) by mouth. Patient not taking: Reported on 08/07/2024 Historical ProviderMD Active HumuLIN R U-500, Conc, Insulin 500 unit/mL CONCENTRATED injection [id number] INJECT 75 UNITS DAILY VIA CONTINUOUS SUBCUTANEOUS INFUSION. DISCARD VIAL AFTER 40 DAYS Patient not taking: Reported on 08/07/2024 Historical ProviderMD Active Jardiance 25 mg [id number] Yes Take 1 tablet (25 mg) by mouth once daily. Historical ProviderMD Active levothyroxine (Synthroid, Levoxyl) 112 mcg tablet [id number] Yes Take 1 tablet (112 mcg) by mouth once daily. Gloria ProviderMD Active lisinopril 40 mg tablet [id number] Yes Take 1 tablet (40 mg) by mouth once daily. Historical ProviderMD Active metFORMIN (Glucophage) 500 mg tablet [id number] Take 1 tablet (500 mg) by mouth 2 times daily (morning and late afternoon). Historical ProviderMD Active metoprolol succinate XL (Toprol-XL) 100 mg 24 hr tablet [id number] Yes TAKE 1 TABLET BY MOUTH DAILY for heart Historical ProviderMD Active Mucinex DM 60-1,200 mg tablet extended release 12 hr [id number] Take 1 tablet by mouth every 12 hours. Historical ProviderMD Active oxyCODONE-acetaminophen (Percocet) 5-325 mg tablet [id number] Take 1 tablet by mouth 2 times a day as needed. Patient not taking: Reported on 08/07/2024 Historical MD Lacey Active pantoprazole (ProtoNix) 40 mg EC tablet [id number] Yes Take 1 tablet (40 mg) by mouth. Historical ProviderMD Active potassium citrate CR (Urocit-K-10) 10 mEq ER tablet [id number] Take 1 tablet (10 mEq) by mouth twicea day. Historical ProviderMD Active predniSONE (Deltasone) 20 mg tablet [id number] Take 0.5 tablets (10 mg) by mouth early in the morning.. Historical ProviderMD Active predniSONE (Deltasone) 20 mg tablet [id number] Take 2 tablets (40 mg) by mouth once daily. Patient not taking: Reported on 08/07/2024 Rosalino Padron MD Active spironolactone (Aldactone) 50 mg tablet [id number] Take 1 tablet (50 mg) by mouth once daily. Patient not taking: Reported on 08/07/2024 Gloria Rahman MD Active tamsulosin (Flomax) 0.4 mg 24 hr capsule [id number] Yes Take 1 capsule (0.4 mg) by mouth once daily.Historical ProviderMD Active traMADol (Ultram) 50 mg tablet [id number] Take 1 tablet (50 mg) by mouth. [...] Rosalino Padron MD 08/07/2024 documented in this [facility] Work Phone: 1(343) 841-232105-09-2025 Instructions* Patient Instructions* Rosalino Padron MD - [...] clinic time slot For scheduling purposes: Call [phone] to schedule a breathing or a walking test Call [phone] to schedule EKG's, Echocardiograms and Cardiopulmonary Stress Tests. Call [phone] to schedule Radiology tests such as Nuclear Medicine Stress Tests, CT Scans, and MRI's. Should you have any questions Please Call our pulmonary nurse Linda Marie at [phone] or my rehab care assistant Puneet Leone at [phone] documented in this [facility] Work Phone: [phone]) 558-276005-08-2025 Evaluation note* Diagnosis Onset Date Resolution Status Admit Date Fatigue noneactive August 06, 2024 2:27pm Hyperlipidemia acute August 17, 2024 11:16am Ischemic cerebrovascular accident (CVA) resolved August 17, 2024 11:16am Polyneuropathy inactive August 17, 2024 11:16am Fatigue noneactive August 17, 2024 11:16am Fatigue noneactive September 15 12:53pm Hyperlipidemia acute September 16, 2024 9:59am CKD (chronic kidney disease) chronic September 16, 2024 9:59am Diabetes chronic September 16 9:59am Insulin pump titration chronic 2024 9:59am Microalbuminuria due to type 2 diabetes mellitus chronic September 16 9:59am Presence of insulin pump chronic September 16, 2024 9:59am Essential (primary) hypertension inactive September 16, 2024 9:59am Hypothyroidism inactive September 16, 2024 9:59am Obesity inactive September 16 9:59am Acute right MCA stroke acute 2024 8:20pm Hyperlipidemia acute September 26, 2024 8:20pm Chronic respiratory failure with hypoxia inactive September 26, 2024 8:20pm Elevated troponin inactive September 262024 8:20pm Essential (primary) hypertension inactive September 26, 2024 8:20pm Hypothyroidism inactive September 26, 2024 8:20pm Interstitial lung disease inactive September 26, 2024 8:20pm Obesity inactive September 26 8:20pm KIANNA (obstructive sleep apnea) inacti ve September 26, 2024 8:20pm Renal insufficiency inactive September 26, 2024 8:20pm 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 wit h hyperglycemia inactive September 26, 2024 8:20pm Acute CVA (cerebrovascular accident) deleted September 26, 2024 8:20pm Hyperlipidemia acute October 12, 2024 10:46am Ischemic cerebrovascular accident (CVA) resolved October 12, 2024 10:46am Polyneuropathy inactive October 12, 2024 10:46am Fatigue noneactive October 12 10:46am Chronic diastolic CHF (congestive heart failure) chronic October 27, 2024 10:16am Dyspnea on exertion resolved October 27, 2024 10:16am Ischemic cerebrovascular accident (CVA) resolved October 27, 2024 10:16am Essential (primary) hypertension inactive October 27, 2024 10:16am Interstitial lung disease inactive October 27, 2024 10:16am Paroxysmal atrial fibrillation inact nicole October 27, 2024 10:16am Iron deficiency anemia due t o chronic blood loss inactive November 03, 2 025 12:48pm [place] [employer] Work Phone: 1(441) 559-186005-08-2025 Evaluation note* Diagnosis Onset Date Resolution Status Admit Date Fatigue noneactive August 06, 2024 2:27pm Hyperlipidemia acute August 17, 2024 11:16am Ischemic cerebrovascular accident (CVA) resolved August 17, 2024 11:16am Polyneuropathy inactive August 17, 2024 11:16am Fatigue noneactive August 17, 2024 11:16am Fatigue noneactive September 15 12:53pm Hyperlipidemia acute September 16, 2024 9:59am CKD (chronic kidney disease) chronic September 16, 2024 9:59am Diabetes chronic September 16 9:59am Insulin pump titration chronic 2024 9:59am Microalbuminuria due to type 2 diabetes mellitus chronic September 16 9:59am Presence of insulin pump chronic September 16, 2024 9:59am Essential (primary) hypertension inactive September 16, 2024 9:59am Hypothyroidism inactive September 16, 2024 9:59am Obesity inactive September 16 9:59am Acute right MCA stroke acute 2024 8:20pm Hyperlipidemia acute September 26, 2024 8:20pm Chronic respiratory failure with hypoxia inactive September 26, 2024 8:20pm Elevated troponin inactive September 262024 8:20pm Essential (primary) hypertension inactive September 26, 2024 8:20pm Hypothyroidism inactive September 26, 2024 8:20pm Interstitial lung disease inactive September 26, 2024 8:20pm Obesity inactive September 26 8:20pm KIANNA (obstructive sleep apnea) inacti ve September 26, 2024 8:20pm Renal insufficiency inactive September 26, 2024 8:20pm 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 wit h hyperglycemia inactive September 26, 2024 8:20pm Acute CVA (cerebrovascular accident) deleted September 26, 2024 8:20pm Hyperlipidemia acute October 12, 2024 10:46am Ischemic cerebrovascular accident (CVA) resolved October 12, 2024 10:46am Polyneuropathy inactive October 12, 2024 10:46am Fatigue noneactive October 12 10:46am Chronic diastolic CHF (congestive heart failure) chronic October 27, 2024 10:16am Dyspnea on exertion resolved October 27, 2024 10:16am Ischemic cerebrovascular accident (CVA) resolved October 27, 2024 10:16am Essential (primary) hypertension inactive October 27, 2024 10:16am Interstitial lung disease inactive October 27, 2024 10:16am Paroxysmal atrial fibrillation inact nicole October 27, 2024 10:16am Iron deficiency anemia due t o chronic blood loss inactive November 03, 2 025 12:48pm Fatigue noneactive November 12 025 10:47am Chronic diastolic CHF (congestive heart failure) chronic Augus t 2024 12:33pm Rheumatoid factor positive chronic November 25, 2024 12:33pm [facility] Work Phone: 1(252) 742-710005-08-2025 Evaluation note* Diagnosis Onset Date Resolution Status Admit Date Fatigue noneactive August 06, 2024 2:27pm Hyperlipidemia acute August 17, 2024 11:16am Ischemic cerebrovascular accident (CVA) resolved August 17, 2024 11:16am Polyneuropathy inactive August 17, 2024 11:16am Fatigue noneactive August 17, 2024 11:16am Fatigue noneactive September 15 12:53pm Hyperlipidemia acute September 16, 2024 9:59am CKD (chronic kidney disease) chronic September 16, 2024 9:59am Diabetes chronic September 16 9:59am Insulin pump titration chronic Ju 2024 9:59am Microalbuminuria due to type 2 diabetes mellitus chronic September 16 9:59am Presence of insulin pump chronic September 16, 2024 9:59am Essential (primary) hypertension inactive September 16, 2024 9:59am Hypothyroidism inactive September 16, 2024 9:59am Obesity inactive September 16 9:59am Acute right MCA stroke acute Ju ne 2024 8:20pm Hyperlipidemia acute September 26, 2024 8:20pm Chronic respiratory failure with hypoxia inactive September 26, 2024 8:20pm Elevated troponin inactive September 262024 8:20pm Essential (primary) hypertension inactive September 26, 2024 8:20pm Hypothyroidism inactive September 26, 2024 8:20pm Interstitial lung disease inactive September 26, 2024 8:20pm Obesity inactive September 26 8:20pm KIANNA (obstructive sleep apnea) inacti ve September 26, 2024 8:20pm Renal insufficiency inactive September 26, 2024 8:20pm 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 wit h hyperglycemia inactive September 26, 2024 8:20pm Acute CVA (cerebrovascular accident) deleted September 26, 2024 8:20pm Hyperlipidemia acute October 12, 2024 10:46am Ischemic cerebrovascular accident (CVA) resolved October 12, 2024 10:46am Polyneuropathy inactive October 12, 2024 10:46am Fatigue noneactive October 12 10:46am Chronic diastolic CHF (congestive heart failure) chronic October 27, 2024 10:16am Dyspnea on exertion resolved October 27, 2024 10:16am Ischemic cerebrovascular accident (CVA) resolved October 27, 2024 10:16am Essential (primary) hypertension inactive October 27, 2024 10:16am Interstitial lung disease inactive October 27, 2024 10:16am Paroxysmal atrial fibrillation inact nicole October 27, 2024 10:16am Iron deficiency anemia due t o chronic blood loss inactive November 03 12:48pm Fatigue noneactive November 12 10:47am Chronic diastolic CHF (congestive heart failure) chronic Aug2024 12:33pm Rheumatoid factor positive chronic November 25, 2024 12:33pm Chronic respiratory failure with hypoxia inactive November 25 12:33pm Interstitial lung disease inactive November 25, 2024 12:33pm Obesity inactive November 25 12:33pm KIANNA (obstructive sleep apnea) inacti ve November 25, 2024 12:33pm Cellulitis acute November 26, 2 025 11:54am Debility acute November 26, 2 025 11:54am Sepsis acute November 26, 025 11:54am [facility] Work Phone: 1(448) 934-247904-07-2025 Evaluation note* Diagnosis Onset Date Resolution Status Admit Date Fatigue noneactive July 06 1:22pm Fatigue noneactive August 06, 2024 2:27pm Hyperlipidemia acute August 17, 2024 11:16am Ischemic cerebrovascular accident (CVA) resolved August 17, 2024 11:16am Polyneuropathy inactive August 17, 2024 11:16am Fatigue noneactive August 17, 2024 11:16am Fatigue noneactive September 15 12:53pm Hyperlipidemia acute September 16, 2024 9:59am CKD (chronic kidney disease) chronic September 16, 2024 9:59am Diabetes chronic September 16 9:59am Insulin pump titration chronic 2024 9:59am Microalbuminuria due to type 2 diabetes mellitus chronic September 16 9:59am Presence of insulin pump chronic September 16, 2024 9:59am Essential (primary) hypertension moe ctive September 16, 2024 9:59am Hypothyroidism inactive September 16, 2024 9:59am Obesity inactive September 16 9:59am Acute right MCA stroke acute 2024 8:20pm Hyperlipidemia acute September 26, 2024 8:20pm Chronic respiratory failure with hypoxia inactive September 26, 2024 8:20pm Elevated troponin inactive September 262024 8:20pm Essential (primary) hypertension moe ctive September 26, 2024 8:20pm Hypothyroidism inactive September 26, 2024 8:20pm Interstitial lung disease inactive September 26, 2024 8:20pm Obesity inactive September 26 8:20pm KIANNA (obstructive sleep apnea) inacti ve September 26, 2024 8:20pm Renal insufficiency inactive September 26, 2024 8:20pm 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 wit h hyperglycemia inactive September 26, 2024 8:20pm Acute CVA (cerebrovascular accident) deleted September 26, 2024 8:20pm Hyperlipidemia acute October 12, 2024 10:46am [facility] Work Phone: 1(331) 844-971504-07-2025 Evaluation note* Diagnosis Onset Date Resolution Status Admit Date Fatigue noneactive July 06 1:22pm Fatigue noneactive August 06, 2024 2:27pm Hyperlipidemia acute August 17, 2024 11:16am Ischemic cerebrovascular accident (CVA) resolved August 17, 2024 11:16am Polyneuropathy inactive August 17, 2024 11:16am Fatigue noneactive August 17, 2024 11:16am Fatigue noneactive September 15 12:53pm Hyperlipidemia acute September 16, 2024 9:59am CKD (chronic kidney disease) chronic September 16, 2024 9:59am Diabetes chronic September 16 9:59am Insulin pump titration chronic 2024 9:59am Microalbuminuria due to type 2 diabetes mellitus chronic September 16 9:59am Presence of insulin pump chronic September 16, 2024 9:59am Essential (primary) hypertension moe ctive September 16, 2024 9:59am Hypothyroidism inactive September 16, 2024 9:59am Obesity inactive September 16 9:59am Acute right MCA stroke acute 2024 8:20pm Hyperlipidemia acute September 26, 2024 8:20pm Chronic respiratory failure with hypoxia inactive September 26, 2024 8:20pm Elevated troponin inactive September 262024 8:20pm Essential (primary) hypertension moe ctive September 26, 2024 8:20pm Hypothyroidism inactive September 26, 2024 8:20pm Interstitial lung disease inactive September 26, 2024 8:20pm Obesity inactive September 26 8:20pm KIANNA (obstructive sleep apnea) inacti ve September 26, 2024 8:20pm Renal insufficiency inactive September 26, 2024 8:20pm 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 wit h hyperglycemia inactive September 26, 2024 8:20pm Acute CVA (cerebrovascular accident) deleted September 26, 2024 8:20pm Hyperlipidemia acute October 12, 2024 10:46am Ischemic cerebrovascular accident (CVA) resolved October 12, 2024 10:46am Polyneuropathy inactive October 12, 2024 10:46am Fatigue noneactive October 12 10:46am [facility] Work Phone: 1(880) 382-944004-07-2025 Evaluation note* Diagnosis Onset Date Resolution Status Admit Date Fatigue noneactive July 06 1:22pm Fatigue noneactive August 06, 2024 2:27pm Hyperlipidemia acute August 17, 2024 11:16am Ischemic cerebrovascular accident (CVA) resolved August 17, 2024 11:16am Polyneuropathy inactive August 17, 2024 11:16am Fatigue noneactive August 17, 2024 11:16am Fatigue noneactive September 15 12:53pm Hyperlipidemia acute September 16, 2024 9:59am CKD (chronic kidney disease) chronic September 16, 2024 9:59am Diabetes chronic September 16 9:59am Insulin pump titration chronic 2024 9:59am Microalbuminuria due to type 2 diabetes mellitus chronic September 16 9:59am Presence of insulin pump chronic September 16, 2024 9:59am Essential (primary) hypertension ome ctive September 16, 2024 9:59am Hypothyroidism inactive September 16, 2024 9:59am Obesity inactive September 16 9:59am Acute right MCA stroke acute 2024 8:20pm Hyperlipidemia acute September 26, 2024 8:20pm Chronic respiratory failure with hypoxia inactive September 26, 2024 8:20pm Elevated troponin inactive September 262024 8:20pm Essential (primary) hypertension moe ctive September 26, 2024 8:20pm Hypothyroidism inactive September 26, 2024 8:20pm Interstitial lung disease inactive September 26, 2024 8:20pm Obesity inactive September 26 8:20pm KIANNA (obstructive sleep apnea) inacti ve September 26, 2024 8:20pm Renal insufficiency inactive September 26, 2024 8:20pm 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 wit h hyperglycemia inactive September 26, 2024 8:20pm Acute CVA (cerebrovascular accident) deleted September 26, 2024 8:20pm Hyperlipidemia acute October 12, 2024 10:46am Ischemic cerebrovascular accident (CVA) resolved October 12, 2024 10:46am Polyneuropathy inactive October 12, 2024 10:46am Fatigue noneactive October 12 10:46am Chronic diastolic CHF (congestive heart failure) chronic October 27, 2024 10:16am Dyspnea on exertion resolved October 27, 2024 10:16am Ischemic cerebrovascular accident (CVA) resolved October 27, 2024 10:16am Essential (primary) hypertension moe ctive October 27, 2024 10:16am Interstitial lung disease inactive October 27, 2024 10:16am Paroxysmal atrial fibrillation inact nicole October 27, 2024 10:16am [facility] Work Phone: 1(676) 875-897204-07-2025 Evaluation note* Diagnosis Onset Date Resolution Status Admit Date Fatigue noneactive July 06 1:22pm Fatigue noneactive August 06, 2024 2:27pm Hyperlipidemia acute August 17, 2024 11:16am Ischemic cerebrovascular accident (CVA) resolved August 17, 2024 11:16am Polyneuropathy inactive August 17, 2024 11:16am Fatigue noneactive August 17, 2024 11:16am Fatigue noneactive September 15 12:53pm Hyperlipidemia acute September 16, 2024 9:59am CKD (chronic kidney disease) chronic September 16, 2024 9:59am Diabetes chronic September 16 9:59am Insulin pump titration chronic 2024 9:59am Microalbuminuria due to type 2 diabetes mellitus chronic September 16 9:59am Presence of insulin pump chronic September 16, 2024 9:59am Essential (primary) hypertension inactive September 16, 2024 9:59am Hypothyroidism inactive September 16, 2024 9:59am Obesity inactive September 16 9:59am Acute right MCA stroke acute [facility] 2024 8:20pm Hyperlipidemia acute September 26, 2024 8:20pm Chronic respiratory failure with hypoxia inactive September 26, 2024 8:20pm Elevated troponin inactive September 262024 8:20pm Essential (primary) hypertension inactive September 26, 2024 8:20pm Hypothyroidism inactive September 26, 2024 8:20pm Interstitial lung disease inactive September 26, 2024 8:20pm Obesity inactive September 26 8:20pm KIANNA (obstructive sleep apnea) inacti ve September 26, 2024 8:20pm Renal insufficiency inactive September 26, 2024 8:20pm 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 wit h hyperglycemia inactive September 26, 2024 8:20pm Acute CVA (cerebrovascular accident) deleted September 26, 2024 8:20pm Hyperlipidemia acute October 12, 2024 10:46am Ischemic cerebrovascular accident (CVA) resolved October 12, 2024 10:46am Polyneuropathy inactive October 12, 2024 10:46am Fatigue noneactive October 12 10:46am Chronic diastolic CHF (congestive heart failure) chronic October 27, 2024 10:16am Dyspnea on exertion resolved October 27, 2024 10:16am Ischemic cerebrovascular accident (CVA) resolved October 27, 2024 10:16am Essential (primary) hypertension inactive October 27, 2024 10:16am Interstitial lung disease inactive October 27, 2024 10:16am Paroxysmal atrial fibrillation inact nicole October 27, 2024 10:16am Iron deficiency anemia due t o chronic blood loss inactive November 03, 2 025 12:48pm [facility] Work Phone: 1(656) 616-923103-28-2025 History of Present illness Narrative* Rosalino Padron MD - 06/26/2024 11:30 AM EDT Images from the original note were not included. Department of Medicine Division of Pulmonary, Critical Care, and Sleep Medicine Consultation [address] [facility] Patient was referred by his PCP (Dr. [...] surgery total pulmonary decortication in 2016 at [facility]. He was hospitalized in [place] from 03/02-03/04/2024 for acute hypoxic respiratory failure. [...] Review Audit Reviewed by Suly Johnston MA ([employer]) on 06/26/24 at 1224 Medication Order Taking? Sig Documenting Provider Last Dose Status albuterol 90 mcg/actuation inhaler [id number] Yes INHALE 2 PUFFS BY MOUTH EVERY 4 HOURS NEEDED FOR SHORTNESS OF BREATH OR WHEEZING Historical ProviderMD Active amLODIPine (Norvasc) 5 mg tablet [id number] Take 1 tablet (5 mg) by mouth once daily. Historical ProviderMD Active aspirin 325 mg tablet [id number] Take 1 tablet (325 mg) by mouth once daily. Historical ProviderLORNActive atorvastatin (Lipitor) 80 mg tablet [id number] Take 1 tablet (80 mg) by mouth once daily at bedtime.Historical ProviderMD Active betamethasone, augmented, (Diprolene) 0.05 % lotion [id number] Yes APPLY TO RASH ON THE TRUNK OR SCALP 1-2 TIMES DAILY NEEDED Historical ProviderMD Active bismuth subsalicylate (Pepto Bismol) 262 mg chewable tablet [id number] Yes CHEW AND SWALLOW 2 TABLETS BY MOUTH 3 TIMES A DAY for 2 weeks. max 16 tablets per 24 hours Historical ProviderMD Active Brilinta 90 mg tablet [id number] Yes 1 tablet (90 mg). Historical ProviderMD Active busPIRone (Buspar) 10 mg tablet [id number] Take 1 tablet (10 mg) by mouth 3 times a day. Historical ProviderMD Active clopidogrel (Plavix) 75 mg tablet [id number] Yes Take 1 tablet (75 mg) by mouth early in the morning.. Historical ProviderMD Active dapagliflozin propanediol (Farxiga) 5 mg [id number] Yes Take 1 tablet (5 mg) by mouth once daily. Historical ProviderMD Active Dexcom G6 Sensor device [id number] Yes USE DIRECTED FOR CONTINUOUS BLOOD GLUCOSE MONITORING, CHANGE SENSOR EVERY 10 DAYS Historical ProviderMD Active DULoxetine (Cymbalta) [address] capsule [id number] Take 1 capsule (60 mg) by mouth once daily. Historical ProviderMD Active Eliquis 5 mg tablet [id number] Take 1 tablet (5 mg) by mouth 2 times a day. Gloria Rahman MD Active ergocalciferol (Vitamin D-2) 1250 mcg (50,000 units) capsule [id number] Yes Take 1 capsule (1,250 mcg) by mouth. Gloria Rahman MD Active fenofibrate (Tricor) 54 mg tablet [id number] Take 1 tablet (54 mg) by mouth once daily. Gloria Rahman MD Active furosemide (Lasix) 40 mg tablet [id number] Yes Take 1 tablet (40 mg) by mouth. Gloria Rahman MD Active glimepiride (Amaryl) 4 mg tablet [id number] Yes Take 1 tablet (4 mg) by mouth early in the morning..Gloria Rahman MD Active glipiZIDE (Glucotrol) 5 mg tablet [id number] Yes Take 1 tablet (5 mg) by mouth. Historical MD Lacey Active HumuLIN R U-500, Conc, Insulin 500 unit/mL CONCENTRATED injection [id number] Yes INJECT 75 UNITS DAILY VIA CONTINUOUS SUBCUTANEOUS INFUSION. DISCARD VIAL AFTER 40 DAYS Gloria Rahman MD Active Jardiance 25 mg [id number] Take 1 tablet (25 mg) by mouth once daily. Historical ProviderMD Active levothyroxine (Synthroid, Levoxyl) 112 mcg tablet [id number] Take 1 tablet (112 mcg) by mouth once daily. Gloria Rahman MD Active lisinopril 40 mg tablet [id number] Take 1 tablet (40 mg) by mouth once daily. Historical ProviderMD Active metFORMIN (Glucophage) 500 mg tablet [id number] Take 1 tablet (500 mg) by mouth 2 times daily (morning and late afternoon). Gloria Rahman MD Active metoprolol succinate XL (Toprol-XL) 100 mg 24 hr tablet [id number] TAKE 1 TABLET BY MOUTH DAILY for heart Historical ProviderMD Active Mucinex DM 60-1,200 mg tablet extended release 12 hr [id number] Yes Take 1 tablet by mouth every 12 hours. Gloria Rahman MD Active oxyCODONE-acetaminophen (Percocet) 5-325 mg tablet [id number] Take 1 tablet by mouth 2 times a day as needed. Gloria ProviderMD Active pantoprazole (ProtoNix) 40 mg EC tablet [id number] Yes Take 1 tablet (40 mg) by mouth. Historical Provider, Active potassium citrate CR (Urocit-K-10) 10 mEq ER tablet [id number] Yes Take 1 tablet (10 mEq) by mouth twice a day. Historical Provider, Active predniSONE (Deltasone) 20 mg tablet [id number] Yes Take 0.5 tablets (10 mg) by mouth early in the morning.. Historical Provider, Active spironolactone (Aldactone) 50 mg tablet [id number] Yes Take 1 tablet (50 mg) by mouth once daily. Historical Provider, Active tamsulosin (Flomax) 0.4 mg 24 hr capsule [id number] Take 1 capsule (0.4 mg) by mouth once daily. Historical Provider, Active traMADol (Ultram) 50 mg tablet [id number] Yes Take 1 tablet (50 mg) by mouth. Historical Provider, Active Drug Allergies/Intolerances: Not on File Review [...] ab panel ordered on 06/26/2024. -will discuss [place] on follow up. -Discussed antifibrotic therapy. Not [...] Rosalino Padron MD 06/26/2024 documented in this [facility] Work Phone: 1(153) 383-414603-28-2025 Instructions* Patient Instructions* Rosalino Padron MD - [...] evaluated for black mold. You can contact [employer] in [place], phone number is [phone] for a home inspection We will see you back in clinic in 1-2 months/weeks For scheduling purposes: Call to schedule a breathing or a walking test Call [phone] to schedule EKG's, Echocardiograms and Cardiopulmonary Stress Tests. Call [phone] to schedule Radiology tests such as Nuclear Medicine Stress Tests, CT Scans, and MRI's. Should you have any questions Please Call our pulmonary nurse Linda Marie at [phone] or my rehab care assistant Puneet Leone at [phone] documented in this [facility] Work Phone: 1(615) 978-852003-06-2025 Evaluation note* Diagnosis Onset Date Resolution Status [...] 16, 2024 9:59am Insulin pump titration chronic 2024 9:59am Microalbuminuria due to type 2 [...] apnea) chroni c September 26, 2024 5:17pm [facility] Work Phone: 1(392) 119-855303-06-2025 Evaluation note* Diagnosis Onset Date Resolution Status [...] 16, 2024 9:59am Insulin pump titration chronic 2024 9:59am Microalbuminuria due to type 2 diabetes mellitus chronic September 16 9:59am Obesity chronic September 16 9:59am Presence of insulin pump chronic September 16, 2024 9:59am Acute CVA (cerebrovascular accident) acute September 26, 2024 8:20pm Acute right MCA stroke acute 2024 8:20pm Elevated troponin acute September 262024 8:20pm Hyperlipidemia acute September 26, 2024 8:20pm Interstitial lung disease acute September 26, 2024 8:20pm Renal insufficiency acute September 26, 2024 8:20pm 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 wit h hyperglycemia acute September 26, 2024 8:20pm Chronic respiratory failure with hypoxia chronic September 26, 2024 8:20pm Essential (primary) hypertension chr onic September 26, 2024 8:20pm Hypothyroidism chronic September 26, 2024 8:20pm Obesity chronic September 26 8:20pm KIANNA (obstructive sleep apnea) chroni c September 26, 2024 8:20pm [facility] Work Phone: 1(590) 918-358402-20-2025 Evaluation note* Diagnosis Onset Date Resolution Status [...] 2024 11:16am Fatigue noneactive September 15 12:53pm [facility] Work Phone: [phone]) [phone] Telephone encounter Note* Telephone Encounter - Oziel [...] 6 months - 1 year. Sooner prn. Jose Antonio MD [employer] Phone: [phone]) 367-956402-07-2025 Miscellaneous Notes* Telephone Encounter - Oziel Culp [...] prescriptions. RTC 6 months - 1 year. Shawer prn. Jose Antonio MD documented in this [facility]02-05-2025 Note* Perioperative Nursing Note - Mendel River RN - 05/06/2024 4:02 PM EST Phase 2 care completed. Iv removed and dc instructions provided. Will dc to home with family Right groin site benign and neuro unchanged [id number]* Perioperative Nursing Note - Mendel River RN - 05/06/2024 4:02 PM EST Phase 2 care completed. Iv removed and dc instructions provided. Will dc to home with family Right groin site benign and neuro unchanged [id number] Miscellaneous Notes* Perioperative Nursing Note - Mendel River RN - 05/06/2024 4:02 PM EST Phase 2 care completed. Iv removed and dc instructions provided. Will dc to home with family Right groin site benign and neuro unchanged NIH 0 documented in this [facility] NotePatient: Krunal Leos Procedure Summary Date: 05/06/24 Room / Location: [facility] Special Procedures Anesthesia Start: 1244 Anesthesia Stop: 1410 Procedure: IR ANGIOGRAM CEREBRAL W POSSIBLE INTERVENTION [...] discharged once all PACU criteria has been met.[facility]02-05-2025 NotePatient: Krunal Loes Procedure Summary Date: 05/06/24 Room / Location: [facility] Procedures Anesthesia Start: 1244 Anesthesia Stop: 1410 Procedure: IR ANGIOGRAM CEREBRAL W POSSIBLE INTERVENTION [...] Allowed opportunity for questions and acknowledgement of understanding.[facility]02-05-2025 Nurse Note* Se Hensley RN - 05/06/2024 1:47 PM EST Patient arrived from home, Dr. Culp in to speak with the patient regarding DCA with possible carotid stenting, consent obtained. Patient was placed supine on exam table prepped and draped in sterile fashion. Telemetry monitors placed, sedation provided by MANAGER EXPORT. Patient tolerated procedure well. [id number] Nurse Note* Se Hensley RN - 05/06/2024 1:47 PM EST Patient arrived from home, Dr. Culp in to speak with the patient regarding DCA with possible carotid stenting, consent obtained. Patient was placed supine on exam table prepped and draped in sterile fashion. Telemetry monitors placed, sedation provided by MANAGER EXPORT. Patient tolerated procedure well. Transfer to ICU. * Se Hensley RN - 05/05/2024 1:45 PM EST Report given to IR rn, neuro assessment completed along with groin site check. documented in this [facility]-05-2025 Consult note* Rianna Yan MD - 05/06/2024 [...] PLAN: 1. Obtain P2 Y12 study 2. [place] Brilinta 90 mg twice daily x 30 [...] 10 to 15 minutes. Was hospitalized at [place] and had Plavix added at that time. [...] Symptoms resolved. He was again hospitalized at [facility]. No medicationchanges were made. April 2024: [...] care Cc: Mey Loya APRN - * [facility] [employer] Phone: [phone]) 988-606402-05-2025 Consult note* Rianna Yan MD - 05/06/2024 [...] PLAN: 1. Obtain P2 Y12 study 2. [place] Brilinta 90 mg twice daily x 30 [...] 10 to 15 minutes. Was hospitalized at [place] and had Plavix added at that time. [...] Symptoms resolved. He was again hospitalized at [facility]. No medicationchanges were made. April 2024: [...] Not assessed post procedure Electronically signed by: Rinana Yan MD, 05/06/2024, 3:15 PM I spent [...] Loya APRN - * documented in this [facility]02-05[facility]2025 NoteIVR History & Physical Inpatient consult to Anesthesiology-- Consult performed by: DEJUAN Leal CNP Consult ordered by: DEJUAN Mak CNP Name: Krunal Leos : 1965 (Age-58 y.o.) Date of Service: Pt seen/examined on 05/06/2024 Procedure Information Date/Time: 05/06/24 1000 Procedure: IR ANGIOGRAM CEREBRAL W POSSIBLE INTERVENTION Location: [facility] Procedures Chief Complaint: Carotid stenosis History Of [...] Cardiac murmur - managed by cardiology in [place] - BP controlled and HR controlled - [...] for gait problem. 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 [id number] History of Present illness Narrative* Suzy Jauregui [...] Provider, Continuous Glucose Sensor (Dexcom G6 Sensor) [facility] Dexcom G6 Sensor Mis, USE DIRECTED FOR [...] Stallworth MD ergocalciferol (Vitamin D2) 1.25 MG (14404 UT) capsule Take 1 capsule by mouth [...] 2023. 10/06/23 01/06/24 Harmeet Stallworth MD HYDROcodone-acetaminophen (Gifford) 5-325 MG tablet Take 1 tablet by [...] prior imaging and most recent CT from [facility]) and not his right carotid artery. [...] Jauregui MD Vascular Surgery documented in this [facility]01-25-2025 [facility]01-23-2025 Note* Care Coordination - Jessica Clifton RN - 04/23/2024 11:38 AM EST [...] Main Entrance which islocated at [address] Turn onto [address] from [facility]. You may use [employer]. Each patient to receive one validation ticket for [employer]. It is also possible to park in the Main Parking Garage. Proceed to bridge into hospital and check in with Same Day Surgery. [facility] [id number] NoteSpoke with patient. Reviewed instructions for procedure. [...] Entrance which is located at [address] Turn onto [address] from [facility] [address]. You may use [employer]. Each patient to receive one validation ticket for [employer]. It is also possible to park in the Main Parking Garage. Proceed to bridge into hospital and check in with Same Day Surgery.[facility]01-23-2025 Miscellaneous Notes* Care Coordination - Jessica Clifton RN - 04/23/2024 11:38 AM EST [...] Main Entrance which islocated at [address] Turn onto Counts [address] [facility] [address] [facility]. You may use [employer]. Each patient to receive one validation ticket for [employer]. It is also possible to park in the Main Parking Garage. Proceed to bridge into hospital and check in with Same Day Surgery. documented in this [facility]01-22-2025 Evaluation note* Diagnosis Onset Date Resolution Status Admit Date Interstitial lung disease acute April 22, 2024 10:03am Chronic diastolic CHF (congestive heart failure) chronic Janua 2024 10:03am Chronic respiratory failure with hypoxia [...] 2:27pm Hyperlipidemia acute August 17, 2024 11:16am [facility] Work Phone: 1(728) 273-616301-16-2025 Evaluation note* Diagnosis Onset Date Resolution Status Admit Date CKD (chronic kidney disease) chronic April 16, 2024 9:21am Diabetes chronic April 16, 2024 9:21am Essential (primary) hypertension chronic April 16 9:21am Hypothyroidism chronic April 162024 9:21am [facility] Obesity chronic April 16, [...] May 21 10:41am Dyspnea on exertion resolved Febr2024 10:41am Paroxysmal atrial fibrillation inact nicole May [...] 1:22pm Fatigue noneactive August 06, 2024 2:27pm [facility] Work Phone: 1(706) 804-604101-15-2025 [facility]01-12-2025 Evaluation note* Diagnosis Onset Date Resolution Status [...] April 162024 9:21am Insulin pump titration chronic [facility]20[facility] 9:21am Obesity chronic April 16, 2024 9:21am Presence of insulin pump chronic April 16, 2024 9:21am Interstitial lung disease acute April 22, 2024 10:03am Chronic diastolic CHF (congestive heart failure) chronic Jan2024 10:03am Chronic respiratory failure with hypoxia chronic [...] 10:41am Essential (primary) hypertension chronic May 21, 025 10:41am Ischemic cerebrovascular accident (CVA) chronic [...] 1:22pm Fatigue noneactive August 06, 2024 2:27pm [facility] Work Phone: 1(773) 841-743012-27-2024 [facility]12-04-2024 [facility]11-13-2024 Telephone encounter Note* Telephone Encounter - Mey Loay APRN - BUS OPERATOR - 02/12/2024 10:29 AM EST Notes and [...] we will determine when to resume Eliquis. [employer] Phone: 1(240) 545-905311-13-2024 Miscellaneous Notes* Telephone Encounter - DEJUAN Mak [...] Name of caller: Megan Contact phone number: [phone] Relationship to Patient: care team amanda Provider: Jose Antonio Practice: Endovascular Chief Complaint/Reason for Call: please send all lab work from September to fax [phone] HEATH Best time of day caller can be reached: any Patient advised that office/PCP has 24-48 business hours to return their call: No documented in this [facility]11-13-2024 Miscellaneous Notes* Telephone Encounter - DEJUAN Mak [...] call regarding his test results with Dr. Fajardo. Please advise:) * Telephone Encounter - Ena Enriquez - 02/06/2024 7:52 AM EST Name of caller: Megan Contact phone number: [phone] Relationship to Patient: care team amanda Provider: Jose Antonio Practice: Endovascular Chief Complaint/Reason for Call: please send all lab work from September to fax [phone] HEATH Best time of day caller can be reached: any Patient advised that office/PCP has 24-48 business hours to return their call: No documented in this [facility]11-13-2024 Telephone encounter Note* Telephone Encounter - Lisa Sandoval - 02/12/2024 9:13 AM EST This patient left a voicemail returning a call regarding his test results with Dr. Hutton Please advise:) [facility]11-07-2024 Telephone encounter Note* Telephone Encounter - Ena Enriquez - 02/06/2024 7:52 AM EST Name of caller: Megan Contact phone number: [phone] Relationship to Patient: care team amanda Provider: Jose Antonio Practice: Endovascular Chief Complaint/Reason for Call: please send all lab work from September to fax [phone] HEATH Best time of day caller can be reached: any Patient advised that office/PCP has 24-48 business hours to return their call: No [facility] [id number] [facility]10-07-2024 History of Present illness Narrative* Oziel Culp MD - 01/06/2024 11:00 AM EDT History of Present Illness: 58 yo man here for fu stroke and bilateral ICA stenosis. He originally presented 09/2023 for left hemiparesis and was transferred [facility] from [facility]. He was found to have [...] episode of left hemiparesis. He went to [facility] and was found to have increased stroke burden of the right hemisphere. Vascular surgery wasconsulted and no surgical procedure was recommended. He had a 3rd event of left hemiparesis the following week and a CT was done at [place] ED. At that time clopidogrel was added (in addition to ASA and Eliquis). The patient returned to normal and was discharged from the ED to home. 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 He is anonsmoker. He does report [...] 2023., Disp: 30 tablet, Rfl: 0 HYDROcodone-acetaminophen (Gifford) 5-325 MG tablet, Take 1 tablet by [...] , Rfl: ergocalciferol (Vitamin D2) 1.25 MG (73797 UT) capsule, Take 1 capsule by mouth [...] and clopidogrel I have requested images from [facility] to evaluate distribution of new ischemic [...] Smoking cessation counseling: Yes documented in this [facility]07-06-2024 Plan of care note* Care Plan - [...] address these barriers include . Patient discharged. [facility] [id number] Miscellaneous Notes* Care Plan - Dariana Lawrence [...] Limits Permission given to speak with patient retail customer service representative/caregiver as indicated: Confirmation of Payer with patient/family: Yes Payer Name: Medical Prewitt : No Confirmation of Primary Care Physician: [...] 0 x 3. He was transferred from [facility] with CVA/TIA. Vascular and Neurology have been consulted. Needs carotid US. Anticipate home with no needs when stable.. . Gris Keith RN documented in this [facility]07-06-2024 Nurse Note* Dariana Lawrence RN - 10/05/2023 2:38 PM EDT Patient discharged at this time. Patient alert and oriented, reviewed discharge instructions with patient and daughter. PIV removed, tele removed. [facility] [id number] Nurse Note* Dariana Lawrence RN - 10/05/2023 2:38 PM EDT Patient discharged at this time. Patient alert and oriented, reviewed discharge instructions with patient and daughter. PIV removed, tele removed. * Dalila Helms RN - 10/03/2023 7:30 PM EDT Pt arrived from [facility], ambulated to bed, NIH scale 1, pt A&O x 4, denies numbness ortingling, denies headache or dizziness, denies needs at this time, [facility], will monitor. documented in this [address]06-2024 Hospital course Narrative* Harmeet Stallworth MD - [...] a few days ago was admitted to [facility] after he had left facial weakness left hand weakness and was diagnosed with a CVA. 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 Occlusion of the left vertebral artery at the level of the V3 extending beyond the fnjxd-yv-bsrp with reconstitution. Atherosclerosis of the cavernous and [...] Complexity: follow up within 7-14 calendar days (45349) [] Severe Complexity: follow up within 7 calendar days (05036) FOLLOW UP TESTING, PENDING RESULTS OR REFERRALS AT TRANSITIONAL CARE VISIT: [] Yes [] No PENDING STUDIES: DISPOSITION: Home FACILITY/HOME CARE AGENCY NAME: Follow up with Suzy Jauregui MD [address] [facility] [address] Call Call your surgeon in 2 days & schedule follow-up, as needed or follow-up for ultrasound survaliance Oziel Culp MD [address] [facility] [phone] Schedule an appointment as soon as possible for a visit in 1 week(s) Pamela Morris MD [address] [facility] [address] Schedule an appointment as soon as possible for a visit in 1 week(s) Radha Khan [address] [facility] [facility] [address] [facility] [phone] Schedule an appointment as soon as possible [...] MD 10/05/2023, 1:36 PM documented in this [facility]07-06-2024 History of Present illness Narrative* Harmeet Stallworth MD - 10/05/2023 10:16 AM EDT Hospitalist Progress Note 10/05/2023 Subjective: Admit Date: 10/03/2023 PCP: RADHA KHAN Room#: W4-435/W4-435 A Brief Hospital course: Krunal Leos is a 58 y.o. male presenting with dizziness over the past 3 years however became more severe and more frequent a few days ago was admitted to [facility] after he had left facial weakness left hand weakness and was diagnosed with a CVA. 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 Occlusion of the left vertebral artery at the level of the V3 extending beyond the logjc-eo-kluw with reconstitution. Atherosclerosis of the cavernous and [...] Contact: Tia Leos Relation: Spouse Preferred language: Italian Cheese Grader needed? No Secondary Emergency Contact: Clarisse Chris Mobile Relation: Daughter Preferred language: Italian Cheese Grader needed? No Harmeet Stallworth MD Division of Hospitalist Medicine Inpatient Medical Services/[facility] * Brenna Carrion - 10/05/2023 8:22 AM EDT Nutrition rescreen completed. Chart reviewed. Patient to be monitored and followed by the diet darkroom technician. Dietitian available upon request. * Fran Lewis PT - 10/04/2023 9:32 AM EDT Images from the original note were not included. PHYSICAL THERAPY [facility] Initial Evaluation Name/MRN: Krunal Leos ([id number]) Evaluation Date: 10/04/2023 Date of : 1965 Admission Date: 10/03/2023 7:30 PM Age: 58 y.o. Room[facility]Bed: [facility] Discharge Recommendation: Home independently Equipment Needed: [...] , dtr, son-in-law. Two step entry to [employer] home. Pt drives, works at [employer]. Son-in-law mows lawn and often orders groceries [...] of Care supervision is transferred to a [facility] Therapy Services Physical Therapist. Goals and/or treatment plan was established in collaboration with patient/family/other representatives. * Harmeet Stallworth MD - 10/04/2023 8:22 AM EDT Hospitalist Progress Note 10/04/2023 Subjective: Admit Date: 10/03/2023 PCP: RADHA KHAN Room#: W4435/[id number] A Brief Hospital course: Krunal Leos is a 58 y.o. male presenting with dizziness over the past 3 years however became more severe and more frequent a few days ago was admitted to [facility] after he had left facial weakness left hand weakness and was diagnosed with a CVA. 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 Occlusion of the left vertebral artery at the level of the V3 extending beyond the xocmq-yv-pudc with reconstitution. Atherosclerosis of the cavernous and [...] Extended Emergency Contact Information Primary Emergency Contact: SawyerTia mike Relation: Spouse Preferred language: Italian Cheese Grader needed? No Secondary Emergency Contact: Clarisse Chris Mobile Relation: Daughter Preferred language: Italian Cheese Grader needed? No Harmeet Stallworth MD Division of Hospitalist Medicine Inpatient Medical Services/[facility] documented in this [facility]07-06-2024 Plan of care note* Care Plan - [...] to address these barriers include reorient frequently. [facility] [id number] Hospital Discharge instructions* Discharge Instructions* Nely Labmert RN - 10/04/2023 12:06 PM EDT Refer [...] and the need for follow-up with a physician/FEEDER SWITCHBOARD OPERATOR/PA after discharge. NELY LAMBERT RN on 10/04/23 [...] through Care Everywhere. * Recovery After Stroke (Italian) * Caring for a Loved One After a Stroke (Italian) * Stroke (Italian) documented in this [facility]07-05-2024 Note* Care Coordination - Gris Keith RN - 10/04/2023 11:19 AM EDT Care Managment Initial Assessment Date: 10/04/2023 Patient Name: Krunal Leos : 1965 Patient Information Source of Information: Patient Cognition/Language: WFL - Within Functional Limits Permission given to speak with patient retail customer service representative/caregiver as indicated: Confirmation of Payer with patient/family: Yes Payer Name: Medical Prewitt [place]: No Confirmation of Primary Care Physician: Confirmed [...] 0 x 3. He was transferred from [facility] with CVA/TIA. Vascular and Neurology have been consulted. Needs carotid US. Anticipate home with no needs when stable.. . Gris Keith RN [facility] [id number] Note* Care Coordination - Gris Keith RN - 10/04/2023 11:19 AM EDT Care Managment Initial Assessment Date: 10/04/2023 Patient Name: Krunal Leos : 1965 Patient Information Source of Information: Patient Cognition/Language: WFL - Within Functional Limits Permission given to speak with patient retail customer service representative/caregiver as indicated: Confirmation of Payer with patient/family: Yes Payer Name: Medical Prewitt : No Confirmation of Primary Care Physician: [...] 0 x 3. He was transferred from [facility] with CVA/TIA. Vascular and Neurology have been consulted. Needs carotid US. Anticipate home with no needs when stable.. . Gris Keith RN T [facility] [id number] Consult note* Oziel Culp MD - 10/04/2023 10:09 AM EDTAssociated Order(s): Inpatient consult to Endovascular Neurology-- Inpatient consult to Endovascular Neurology-- Consult performed by: Mey Loya APRN - [facility] Consult ordered by: Raphael Stone MD Reason for consult: vertebbral artery occlusion/ stenosis History Of Present Illness Krunal Leos is a 58 y.o. male presenting with left face and hand weakness in setting of chronic dizziness. Pt does have history of atrial fibrillation on Eliquis. 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 Coordination Ssfajr-kv-xwyh, rapid alternating movements and myho-tg-ohlg normal bilaterally without dysmetria. Awake and alert [...] Team, ., . Personal review of: Imaging,Labs,ECHO},.},. [employer] Phone: 1(356) 839-305207-05-2024 Consult note* Oziel Culp MD - 10/04/2023 10:09 AM EDTAssociated Order(s): Inpatient consult to Endovascular Neurology-- Inpatient consult to Endovascular Neurology-- Consult performed by: Mey Loya APRN - [facility] Consult ordered by: Raphael Stone MD Reason for consult: vertebbral artery occlusion/ stenosis History Of Present Illness Krunal Leos is a 58 y.o. male presenting with left face and hand weakness in setting of chronic dizziness. Pt does have history of atrial fibrillation on Eliquis. 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 Coordination Vyzjso-xv-lixk, rapid alternating movements and iwmi-nk-ddku normal bilaterally without dysmetria. Awake and alert [...] Name: Krunal Leos Patient : 1965 Acct: [id number] Date of Admission: 10/03/2023 Room[facility]Bed: [facility] PCP: RADHA KHAN History of Present Ilness: 58 y.o. is man with the chief Complaint of: transferred from [facility] evaluation of severe cerebrovascular disease presenting with [...] tablet 112 mcg, 112 mcg, Oral, Immanuel , Michael Rico MD, 112mcg at 10/04/23 0555 metoprolol succinate XL (Toprol-XL) 24 hr tablet 100 mg, 100 mg, Oral, Daily, Michael Rico MD pantoprazole (ProtoNix) EC tablet 40 mg, 40 mg, Oral, [facility], Michael Rico MD, 40 mg at 10/04/23 [...] reflex present -X Palate:intact -XI Shoulder shrug: {INTACT/ABNORMAL:[id number]::intactNormal -XII Tongue movement: Normal Funduscopic Exam: normal, [...] 401 ms QTC Interval 453 ms P [place] 12 degrees QRS [place] -16 degrees T Wave [place] 16 degrees [place] Interval 160 ms POCT glucose meter Collection [...] the left vertebral artery MRI brain from [place] review ASSESSMENT / PLAN / SUGGESTIONS : [...] of Eliquis last night - follow up [facility] - further plans to follow [...] agreeable to the plan. documented in this [facility]07-05-2024 Consult note* Pili Connolly MD - 10/04/2023 8:31 AM EDTAssociated Order(s): IP CONSULT TO NEUROLOGY; IP CONSULT TO STROKE TEAM Images from the original note were not included. INITIAL CONSULT NOTE. STROKE SERVICE Patient Name: Krunal Leos Patient : 1965 Acct: [id number] Date of Admission: 10/03/2023 Room/Bed: [facility] PCP: RADHA KHAN History of Present Ilness: 58 y.o. is man with the chief Complaint of: transferred from [facility] evaluation of severe cerebrovascular disease presenting with [...] tablet 5 mg, 5 mg, Oral, Daily, iMchael Rico MD dextrose 5 % infusion, 100 [...] Levoxyl) tablet 112 mcg, 112 mcg, Oral, qASavannah AC, Michael Rico MD, 112mcg at 10/04/23 05 metoprolol succinate [...] flush 5-40 mL, 5-40 mL, IntraVENous, PRN, Mcihael Rico MD tamsulosin (Flomax) 24 hr capsule [...] reflex present -X Palate:intact -XI Shoulder shrug: {INTACT/ABNORMAL:[id number]::intactNormal -XII Tongue movement: Normal Funduscopic Exam: normal, [...] 401 ms QTC Interval 453 ms P [place] 12 degrees QRS [place] -16 degrees T Wave [place] 16 degrees [place] Interval 160 ms POCT glucose meter Collection [...] the left vertebral artery MRI brain from [place] review ASSESSMENT / PLAN / SUGGESTIONS : [...] to be involved in this patient's care. [employer] Phone: 1(453) 400-302807-05-2024 Consult note* Karol Melissa MD - 10/04/2023 6:34 AM [...] of Eliquis last night - follow up [facility] evaluation - further plans to follow [...] and he is agreeable to the plan. [facility] HospitalBcjbsn11-05-1549 History and physical note* Michael Rico MD - 10/03/2023 9:26 PM EDT History Of Present Illness Krunal Leos is a 58 y.o. male presenting with dizziness over the past 3 years however became more severe and more frequent a few days ago was admitted to [facility] after he had left facial weakness left hand weakness and was diagnosed with a CVA. 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 Occlusion of the left vertebral artery at the level of the V3 extending beyond the adskp-sb-emtt with reconstitution. Atherosclerosis of the cavernous and [...] consultation 3. Continue to monitor glycemic status. [employer] Phone: 1(851) 514-545607-04-2024 History and physical note* Michael Rico MD - 10/03/2023 9:26 PM EDT History Of Present Illness Krunal Leos is a 58 y.o. male presenting with dizziness over the past 3 years however became more severe and more frequent a few days ago was admitted to [facility] after he had left facial weakness left hand weakness and was diagnosed with a CVA. 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 Occlusion of the left vertebral artery at the level of the V3 extending beyond the hgoak-rp-aimx with reconstitution. Atherosclerosis of the cavernous and [...] to monitor glycemic status. documented in this [facility]07-04-2024 Nurse Note* Dalila Helms RN - 10/03/2023 7:30 PM EDT Pt arrived from [facility], ambulated to bed, NIH scale 1, pt A&O x 4, denies numbness ortingling, denies headache or dizziness, denies needs at this time, call light and belongings [facility], will monitor. [id number] Note Discharge Instructions Thank you for allowing [facility] to assist you with your healthcare needs. [...] are many vaccine clinic locations within the [facility]. For locations and available times, please visit https://gettheshot.coronavirus.[place].gov/. It is important to note that some COVID mobile vaccine clinics are held outdoors and may be canceled in rainy or stormy conditions. To learn more about pediatric vaccinations (ages 5-11), we invite you to visit the [facility] webpage. [email or web address].[email or web address].[email or web address]/pages/[email or web address]-Fzdyi-Etxsztmolmm-Bykfwtpnxt-[email or web address]-[email or web address] stions.htmlTo learn more about the COVID-19 vaccine, we invite you to visit the CDC website for a list of frequently asked questions.https://www.cdc.gov/coronavirus/2019-ncov/vaccines/faq.html [facility] [employer] Patient Portal Access Instructions: Stay connected with your healthcare team and access your personal medical information anytime with the [facility] Patient Portal. Please follow the directions below to create your [employer] account: 1.Access the email account you provided upon registration to the hospital/physician office.2.Look for an invitation email from [facility].3.Open the email and access the invitation link: AcceptInvitation to [facility].4.Fill in the required goldberg to create your account. To access your account, visit [employer]. Click the blue button labeled Access Patient [...] who you will allowto register on the [facility] for access to your information. You can also access the [facility] Patient Portal on the [facility] collin. Simply click on Patient Portal and then log into your account. If you would like to receive a full copy of your medical records, please contact the [facility] Medical Records Department by calling [phone], Saturday through Saturday between 8 a.m. and [...] Call your local pharmacy or go to [email or web address] to find one close to you.3.Make use of household items: Use cat litter or old coffee grounds to dispose medications if other options arenot available. Mix your drugs with these household products, seal them in an airtight container andthrow it into the garbage. Call [facility]: [phone] to be sure your drugs can be [...] been reviewed and explained to me and I,DAFNE, KRUNAL understand my current condition and have read and understand these discharge instructions. I have receiveda written copy of the plan/instructions. If I have questions, I am aware that I should contact my do ctor. Patient/[employer] [place] Signature: Date/Time: Relationship to Patient: Witness Name/Signature: Date/Time: [facility]07-04-2024 Note Date of Service 10/03/23 Chief Complaint CVA Subjective 58-year-old male with past medical history significant for paroxysmal atrial fibrillation anticoagulated with apixaban, HTN, HLD, type 2 diabetes mellitus, hypothyroidism, KIANNA noncompliant with CPAP,HFpEF, chronic hypoxic respiratory failure, GERD, carotid stenosis, NSTEMI, Hodgkin's disease. [facility] on 10[facility]2023 with increased weakness, [...] vertebral artery from the origin to the [id number]. Moderate stenosis of bilateral internal carotid arteries [...] Dobbs, vascular surgeon, who recommended transfer to [facility] for vascular surgery evaluation. [facility] transfer line called. Imaging reports [...] by DOMINIC FLEMING on 10/03/2023 04:22 PM [place] [address]-03-2024 Note ORIGINAL EXAMINATION: CTA OF THE HEAD [...] Sign Date: 10/03/2023 10:41:49 AM Ordering Provider: [facility]07-03-2024 Note ORIGINAL EXAMINATION: CTA OF THE NECK10/02/2023 [...] Date: 10/03/2023 10:41:06 AM [facility] Exam Date Time Procedure Performing Provider Status 10/02/23 2:41 PM Echocardiogram, Adul t with Bubble Study- Auth (Verified) [facility] 07-03-2024 Nurse Progress note ABDULLAHI AGUIRRE APRN, CNP CONSULTED STEM FOR NEURO CONSULT 4399. ER REGISTRATION NOTIFIED. Digitally Signed by Nelly Marsh RN on 10/02/2023 01:28 PM [facility]07-03-2024 Evaluation + Plan noteExtracted from: Title:History and Physical Author:ABDULLAHI AGUIRRE APRN-BUS OPERATOR Date:10/02/23 1. CVA (cerebrovascular acci dent) Acute, [...] collaborating with physician, and documenting in chart. [facility] 07-03-2024 Nurse Progress note ABDULLAHI AGUIRRE APRN,NAV CONSULTED STEM FOR NEURO CONSULT 1319. ER REGISTRATION NOTIFIED. Digitally Signed by Nelly Marsh RN on 10/02/2023 01:28 PM [facility]07-03-2024 Note Date of Service 10/02/2023 [...] diabetes and hypothyroidism, presented to [facility] emergency department with the chief complaint of weakness and possible right facial droop. Patient states [facility] and suddenlyfelt a little weak in [...] fever, chills, cough, shortness of breath, chest pain, abdominal pain, nausea or dysuria. In the emergency [...] by ABDULLAHI AGUIRRE on 10/02/2023 12:50 PM [facility]07-03-2024 Note ORIGINAL HISTORY: TIA COMPARISON: [...] Sign Date: 10/02/2023 8:38:30 AM Ordering Provider: [facility] 10-01-2023 Note ADDENDUM ADDENDUM: I agree with [...] Sign Date: 10/01/2023 11:46:49 PM Ordering Provider: [facility]07-02-2024 Note ORIGINAL EXAMINATION: ONE XRAY VIEW [...] Sign Date: 10/01/2023 9:13:56 PM Ordering Provider: [facility]07-02-2024 Note Sinus rhythm Atrial premature complexes Left ventricular hypertrophy Inferior infarct, old EKG interpretation is noted and agreed to in [facility]. The interpretation of this patient's EKG contributed directly to the care and management of this patient. Electronic Signature: TITA PARISH DO 10/01/2023 20:51:[address] [place] [address] 12-15-2023 Procedure [facility] 02-18-2023 Procedure [facility]05-05-[address] Ospina [facility] August 03, 2022 10:12am Note Date/Time August 03, 2022 10:12a m [facility] Medical Records Department [facility] [place] [address] Discharge Summary 08/03/22 1011 MR#: [id number] Acct: [id number] Name: KRUNAL LEOS Rep #:[id number] : 1965 56 From: Eduin Ospina MD PCP: Dr. Radha Khan MD Status:ADM TALIB Location: [place] [address] Providers Date of Admission: 08/01/22 Date of [...] PO DAILY@0800 03/30/20 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 meter,continuous (Dexcom G6 Rn Clinical) #1 ea 07/26/20 pen needle, diabetic 31 gauge x 5/16 #1,200 ea 12/22/20 pen needle, diabetic 32 gauge x 5/32 (BD Ultra-Fine Kiki Pen Needle) #150 ea 06/01/21 atorvastatin 80 mg tablet (Lipitor) 80 mg PO QHS cholesterol 09/04/21 metoprolol succinate 100 mg tablet,extended release 24 hr 100 mg PO DAILY #90 tabs 12/08/21 blood-glucose sensor (Dexcom G6 Sensor device) #3 ea 12/29/21 blood-glucose [...] Discharge Orders/Prescriptions Prescriptions: Continued (DME) Dexcom G6 Rn Clinical Misc See Rx Instructions .ROUTE .MEDSUPPLY Qty: [...] Self Care Charges/Coding Visit Charges Inpatient E&M: 50698 Disch Hosp >30min 08/03/22 1012 <Electronically signed by Eduin Ospina MD> Cosigner Signature (if applicable): CC: Dr. Radha Khan MD; Dr. Eduin Ospina MD~ Signed [facility] Work Phone: 1(987) 821-729805-05-[address] Ospina [facility] August 03, 2022 10:11am Note Date/Time August 03, 2022 7:37am [facility] Medical Records Department [address] [place] [address] Progress Note - Hospitalist 08/03/22 0737 MR#: [id number] Acct: [id number] Name: KRUNAL LEOS Rep #:[id number] : 1965 56 From: Eduin Ospina MD PCP: Dr. Radha Khan MD Status:ADM TALIB Location: [place] [address] Reason for Visit Reason for Visit: Diagnoses [...] 40 Minutes Charges/Coding Visit Charges Inpatient E&M: 24293 Subs Hosp L2 08/03/22 1011 <Electronically signed by Eduin Ospina MD> Cosigner Signature (if applicable): CC: ~ Signed [facility] Work Phone: 1(324) 259-893105-04-[address] Ospina [facility] August 02, 2022 10:50am Note Date/Time August 02, 2022 8:30am [facility] Medical Records Department [address] [place] [address] Progress Note - Hospitalist 08/02/22 0828 MR#: [id number] Acct: [id number] Name: KRUNAL LEOS Rep #:[id number] : 1965 56 From: Eduin Ospina MD PCP: Dr. Radha Khan MD Status:ADM TALIB Location: [place] [address] Reason for Visit Reason for Visit: Diagnoses [...] (Auto) 70.4 H, Lymph % (Auto) 13.4L, Wharton % (Auto) 11.7 H, Eos % (Auto) [...] % (Auto) 59.7, Lymph % (Auto) 21.5, Wharton % (Auto) 14.4 H, Eos % (Auto) [...] 40 Minutes Charges/Coding Visit Charges Inpatient E&M: 68264 Subs Hosp L2 08/02/22 1050 <Electronically signed by Eduin Ospina MD> Cosigner Signature (if applicable): CC: ~ Signed [facility] Work Phone: 1(821) 960-531005-04-2023 History and physical note Author Dr. Bell [facility] August 02, 2022 2:34am Note Date/Time August 01, 2022 10:32p m [facility] Medical Records Department [address] [place] [address] H&P Exam - Hospitalist 08/01/22 2232 MR#: [id number] Acct: [id number] Name: KRUNAL LEOS Rep #:[id number] : 1965 56 From: Cookie Bell MD PCP: Dr. Radha Khan MD Status:ADM TALIB Location: [place] [address] HPI - General General Date of Admission: [...] neuropathy, Hx TIA who presents to the [facility] ED on 08/01/22 with history of [...] IV x1, meclizine 25 mg p.o. x1. [facility] Medical History (Updated 08/02/22 @ 02:28 by [...] Last Taken 05/09/22] blood-glucose meter,continuous (Dexcom G6 Rn Clinical) #1 ea 07/26/20 [Rx Last Taken Unknown] [...] left heart catheterization (2009) History of thoracentesis (2016) Hx of nephrolithotomy with removal of calculi [...] (Auto) 70.4 H, Lymph % (Auto) 13.4L, Wharton % (Auto) 11.7 H, Eos % (Auto) [...] neuropathy, Hx TIA who presents to the [facility] ED on 08/01/22 with history of [...] 75 minutes. Charges/Coding Visit Charges Inpatient E&M: 88048 Init Hosp L3 Procedures Hospitalists Procedures: 11996 Advncd Care Plan 30 Min 08/02/22 0234 <Electronically signed by Cookie Bell MD> Cosigner Signature (if applicable): CC: Dr. Radha Khan MD; Dr. Cookie Bell MD~ Signed [facility] Work Phone: 1(294) 251-448605-04-[address] Hill [facility] August 01, 2022 11:55pm Note Date/Time August 01, 2022 8:08pm [facility] Medical Records Department [address] [place] [address] Emergency Department Summary 08/01/22 MR#: [id number] Acct: [id number] Name: KRUNAL LEOS Rep #:[id number] : 1965 56 From: Nely Hill MD PCP: Dr. Radha Khan MD Status:ADM TALIB Location: [place] [address] HPI History of Present Illness Chief Complaint: [...] equivocal and norecommendation for surgery was made. [facility] Medical History Acute kidney injury Anemia Anxiety [...] Last Taken 05/09/22] blood-glucose meter,continuous (Dexcom G6 Rn Clinical) #1 ea 07/26/20 [Rx Last Taken Unknown] [...] Medical decision making narrative: Patient placed on threat monitoring analyst. EKG obtained to evaluate for cardiac arrhythmia/ischemia. [...] 70.4 H Lymph % (Auto) 13.4 L Wharton % (Auto) 11.7 H Eos % (Auto) [...] (Auto) Neut % (Auto) Lymph % (Auto) Wharton % (Auto) Eos % (Auto) Baso % [...] our attention. I spoke with neurology at [facility]. Given that the patient is already on [...] Vertigo Prescriptions: No Action (DME) Dexcom G6 Rn Clinical Misc See Rx Instructions .ROUTE .MEDSUPPLY Qty: [...] Provider] - Disposition Disposition: Acute Care Hospital [facility] What to do if you have Problems For any increased pain, shortness of breath, bleeding, nausea or vomiting, chestpain, or any unexpected problems, contact your Primary Care Provider. Call [facility] ([phone]) or report to the closest Emergency Room. Call 911 if necessary. 08/01/22 1270 <Electronically signed by Nely Hill MD> Cosigner Signature (if applicable): CC: Dr. Radha Khan MD ~ Signed [facility] Work Phone: Consult note Author Ethel Moyer [facility] Note Date/Time September 28, 2024 5:15 pm [facility] Medical Records Department [address] [place] [address] Counseling Note - Pharmacy 09/28/24 1549 MR#: [id number] Acct: [id number] Name: KRUNAL LEOS Rep #:[id number] : 1965 59 From: Ethel Moyer PCP: Dr. Brandt Winter MD Status:ADM IN Location: [place] [address] Pharmacy [place] Med Reconciliation Pharmacy Service has performed discharge medication reconciliation for this patient. The patient's discharge medication list was reviewed for discrepancies and discrepancies were resolved. Medications at Discharge Home Medications tamsulosin 0.4 mg capsule 0.4 mg PO DAILY prostate 09/08/15 Held on 09/28/24. Instructions: Until instructed to restart duloxetine 60 mg capsule,delayed release (Cymbalta) 60 mg PO DAILY depression 04/17/18 blood-glucose,equity structurer,cont (Dexcom G6 Rn Clinical) #1 ea 07/26/20 atorvastatin 80 mg tablet (Lipitor) 80 mg PO QHS cholesterol 09/04/21 blood-glucose transmitter (Dexcom G6 Transmitter device) #1 ea 12/29/21 infusion set for insulin pump 10/08/22 insulin pump controller 10/08/22 blood-glucose sensor (Dexcom G6 Sensor device) #1 ea 02/25/23 insulin regular hum U-500 conc 500 unit/mL subcutaneous soln (Humulin R U-500 (Concentrated) Insulin) 75 unit (0.15 mL) continuous subcutaneous infusion DAILYblood sugar #20 mL 11/11/23 ferrous sulfate 325 mg (65 mg iron) tablet (Feosol) 325 mg PO DAILY anemia 03/02/24 amlodipine 5 mg tablet 5 mg PO QDAY blood pressure 03/13/24 aspirin 325 mg tablet 325 mg PO DAILY heart health 03/13/24 metoprolol succinate 100 mg tablet,extended release 24 hr 100 mg PO DAILY heart #90 tabs 03/27/24 lisinopril 40 mg tablet 40 mg PO DAILY blood pressure 04/12/24 levothyroxine 112 mcg tablet 112 mcg PO DAILY thyroid 04/24/24 ticagrelor 90 mg tablet (Brilinta) 90 mg PO BID 05/21/24 furosemide 40 mg tablet (Lasix) 40 mg PO BID diuretic #270 tabs 06/23/24 pantoprazole 40 mg tablet,delayed release (Protonix) 40 mg PO BID acid reflux #60 tabs 07/22/24 empagliflozin 25 mg tablet (Jardiance) 25 mg PO DAILY diabetes #30 tabs 08/12/24 apixaban 5 mg tablet (Eliquis) 5 mg PO BID blood thinner #180 tabs 08/31/24 buspirone 10 mg tablet 10 mg PO DAILY Anxiety 09/16/24 oxycodone-acetaminophen 5 mg-325 mg tablet 1 tab PO TID PRN pain 09/16/24 prednisone 5 mg tablet See Rx Instructions PO .COMPLEX steriod 09/16/24 fenofibrate micronized 134 mg capsule 134 mg PO QHS 09/26/24 09/28/24 1549 <Electronically signed by Ethel Moyer> Date _ Ethel Moyer Cosigner Signature (if applicable): Date CC: ~ Signed [facility] Work Phone: Discharge summary Author Betina Martinez [facility] Note Date/Time November 26, 2024 12 :18pm [facility] Medical Records Department [address] [place] [address] Emergency Department Summary 11/26/24 MR#: [id number] Acct: [id number] Name: KRUNAL LEOS Rep #:[id number] : 1965 59 From: Betina Martinez MD PCP: Dr. Brandt Winter MD Status:REG ER Location: ED HPI History of Present Illness Chief Complaint: Weakness Narrative Narrative: Patient is a 59-year-old male presenting to the emergency department for generalized weakness. Patient has a past medical history of an acute right MCA stroke, CKD, diabetes, CHF, hypoxia on baseline 4 L nasal cannula at rest and 8 L nasal cannula with activity. Patient states yesterday he was feeling at baseline. Reports that last night in the middle of the night he felt very weak overall. States this morning he tried to get up and felt so weak that he fell to the ground. Reports that he landed mainly on his right hip. Denies any his head or any loss of consciousness. He is on oral anticoagulation. He denies fever, chest pain, shortness of breath, abdominal pain, nausea, vomiting, diarrhea, dysuria or hematuria. Reports some chills. Denies any focal weaknessor numbness. Denies any speech difficulty or visual changes. He does have left-sided minor facial droop is a deficit from prior stroke. [facility] Medical History Hyperlipidemia Elevated troponin 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 with hyperglycemia Renal insufficiency Interstitial lung disease Ischemic cerebrovascular accident (CVA) CHF (congestive heart failure) Chronic respiratory failure with hypoxia KIANNA (obstructive sleep apnea) Presence of insulin pump CKD (chronic kidney disease) Hypothyroidism Essential (primary) hypertension Diabetes Acute hypoxemic respiratory failure Chronic diastolic CHF (congestive heart failure) Obesity Exertional shortness of breath Iron deficiency anemia due to chronic blood loss Current use of usp anticoagulation Morbid obesity with BMI of 45.0-49.9, adult Atherosclerotic heart disease of [place] coronary artery without angina pectoris Mini stroke [...] infarction (NSTEMI) (03/28/20) TIA (transient ischemic attack) (2019) Hodgkin disease GERD (gastroesophageal reflux disease) BPH (benign prostatic hyperplasia) Anxiety and depression Morbid obesity with BMI of 45.0-49.9, adult Nephrolithiasis Diabetes mellitus, type II Home Medications ?Medication ?Instructions ?Recorded ?Last Taken ?Type tamsulosin 0.4 mg capsule 0.4 mg PO DAILY prostate 12/1509/26/24 History duloxetine 60 mg capsule,delayed 60 mg PO DAILY depres wanda 04/17/18 09/26/24 History release (Cymbalta) blood-glucose,equity structurer,cont #1 ea 07/26/20 Unknown Rx (Dexcom G6 Rn Clinical) blood-glucose transmitter (Dexcom #1 ea 12/29/21 Unkno wn Rx G6 Transmitter device) infusion set for insulin pump 10/08/22 Unknown Histor y insulin pump controller 10/08/22 Unknown History blood-glucose sensor (Dexcom G6 #1 ea 02/25/23 Unknown Rx Sensor device) insulin regular hum U-500 conc 500 75 unit (0.15 mL) c ontinuous 11/11/23 09/26/24 Rx unit/mL subcutaneous soln (Humulin subcutaneous infusi on DAILY blood R U-500 (Concentrated) Insulin) sugar #20 mL ferrous sulfate 325 mg (65 mg 325 mg PO DAILY anemia 1 05/03/23 09/26/24 History iron) tablet (Feosol) amlodipine 5 mg tablet 5 mg PO QDAY blood pressure 03/13/24 09/26/24 History aspirin 325 mg tablet 325 mg PO DAILY heart health 03/13/24 09/26/24 History metoprolol succinate 100 mg 100 mg PO DAILY heart #90 tabs 03/27/24 09/26/24 Rx tablet,extended release 24 hr lisinopril 40 mg tablet 40 mg PO DAILY blood pressur e 04/12/24 09/26/24 History ticagrelor 90 mg tablet (Brilinta) 90 mg PO BID 09/26/24 History furosemide 40 mg tablet (Lasix) 40 mg PO BID diuretic #270 tabs 06/23/24 09/26/24 Rx pantoprazole 40 mg tablet,delayed 40 mg PO BID acid re flux #60 tabs 07/22/24 09/26/24 Rx release (Protonix) empagliflozin 25 mg tablet 25 mg PO DAILY diabetes #30 tabs 08/12/24 09/26/24 Rx (Jardiance) apixaban 5 mg tablet (Eliquis) 5 mg PO BID blood thinn er #180 tabs 08/31/24 09/26/24 Rx buspirone 10 mg tablet 10 mg PO BID Anxiety 09/16/ 5 09/26/24 History oxycodone-acetaminophen 5 mg-325 1 tab PO TID PRN pain 09/16/24 09/25/24 History mg tablet prednisone 5 mg tablet See Rx Instructions PO .COMP SOFY 09/16/24 09/26/24 History steriod fenofibrate 54 mg tablet 134 mg PO QDAY 10/27/24 Unkn own History rosuvastatin 40 mg tablet 40 mg PO QDAY #30 tabs 10/27 Unknown Rx albuterol sulfate 2.5 mg/3 mL 2.5 mg inhalation Q4H [place] N 11/25/24 Unknown History (0.083 %) solution for nebulization shortness of breat h or wheezing levothyroxine 125 mcg tablet 125 mcg PO QDAY 11/25/24 Unknown History pirfenidone 267 mg tablet 267 mg PO TID 11/25/24 Unkno wn History Allergy/AdvReac Type Severity Reaction Status Date / Time metoclopramide HCl (From Allergy Severe Anaphylaxis Verified 11/25/24 12:47 Reglan) Family History Brother Heart disease Mother [...] you participate in: none ROS ROS ED ROS Narrative see HPI EXAM Physical Exam Narrative Exam Narrative: Vital signs: Reviewed General: Alert and oriented x 3. No acute distress. Chronically ill-appearing HEENT: Head is normocephalic and atraumatic, sinuses nontender, pupils equal round and reactive. Nares are patent. Oropharynx and throat exams normal. Neck: Supple without lymphadenopathy nontender. No midline cervical spinal tenderness to palpation. No step-offs or deformities. Cardiovascular: Regular rate and rhythm, no murmurs. No rubs or gallops. Normal S1 and S2 Respiratory: Clear to auscultation bilaterally. No wheezes, rales, rhonchi. Onbaseline 4 L nasal cannula Abdominal: Soft and nontender. Normal bowel sounds. No guarding or rebound. Nonsurgical abdomen Extremities: No tenderness. No bruising. Normal range of motion. Normal sensation. Skin: No rash or redness. Neurological: Cranial nerves II through XII are grossly intact. Normal strengthand sensation. Normal cerebellar function The rest of the physical exam is unremarkable Const Vital Signs: 11/26/24 09:16 11/26/24 09:16 11/26/24 09:23 Temperature 97.9 F 97.9 F Temperature Source Oral Oral Pulse Rate 92 92 Respiratory Rate 27 H 27 H Respiratory Effort Normal Non-Labored Respiratory Pattern Tachypnea Blood Pressure 86/50 L 86/50 L Blood Pressure Mean 62 62 Pulse Ox 97 97 Oxygen Delivery Method Nasal Cannula Nasal Cannula Oxygen Flow Rate (L/min) 4 4 11/26/24 09:39 11/26/24 09:52 11/26/24 10:00 Temperature Temperature Source Pulse Rate 89 Respiratory Rate 23 H Respiratory Effort Respiratory Pattern Blood Pressure 80/56 L Blood Pressure Mean 63 Pulse Ox 98 Oxygen Delivery Method Nasal Cannula Oxygen Flow Rate (L/min) 11/26/24 10:00 11/26/24 10:15 11/26/24 10:26 Temperature 99.9 F H 100.1 F H Temperature Source Core Core Pulse Rate 88 88 Respiratory Rate 24 H 24 H Respiratory Effort Respiratory Pattern Blood Pressure 80/56 L 109/59 L 98/55 L Blood Pressure Mean 63 75 69 Pulse Ox 99 99 Oxygen Delivery Method Nasal Cannula Oxygen Flow Rate (L/min) 11/26/24 10:30 11/26/24 10:45 11/26/24 11:00 Temperature 100.2 F H 100.0 F H 100.0 F H Temperature Source Core Core Core Pulse Rate 91 86 81 Respiratory Rate 22 H 24 H 23 H Respiratory Effort Respiratory Pattern Blood Pressure 98/55 L 90/56 L 106/65 Blood Pressure Mean 69 67 78 Pulse Ox 100 100 100 Oxygen Delivery Method Oxygen Flow Rate (L/min) 11/26/24 11:15 11/26/24 11:30 11/26/24 11:45 Temperature 99.6 F H 99.4 F H 99.5 F H Temperature Source Core Core Core Pulse Rate 90 85 95 Respiratory Rate 23 H 18 26 H Respiratory Effort Respiratory Pattern Blood Pressure 109/66 104/60 99/88 H Blood Pressure Mean 79 74 93 Pulse Ox 96 100 99 Oxygen Delivery Method Oxygen Flow Rate (L/min) 11/26/24 11:54 11/26/24 12:00 Temperature 99.5 F H 99.5 F H Temperature Source Core Core Pulse Rate 86 92 Respiratory Rate 21 H 30 H Respiratory Effort Respiratory Pattern Blood Pressure 99/88 H 79/52 L Blood Pressure Mean 91 62 Pulse Ox 99 98 Oxygen Delivery Method Nasal Cannula Oxygen Flow Rate (L/min) 4 NIHSS NIHSS stroke assessment: 1a Level of Consciousness: 0 1b LOC Questions (Score 2 if aphasic/stupor): 0 1c LOC Commands (Only score 1st attempt): 0 2 Best Gaze (If aphasic, use reflexive mvmts.): 0 3 Visual: 0 4 Facial Palsy: 1 (Residual deficit from prior stroke) 5 Motor Arm Right (UN = amputation/fusion): 0 5 Motor Arm Left: 0 6 Motor Leg Right: 0 6 Motor Leg Left: 0 7 Limb ataxia (Only + if out of proportion): 0 8 Sensory (Aphasia/stupor=0 or 1, coma=2): 0 9 Best Language: 0 10 Dysarthria (mute, coma=2, intubated=UN): 0 11 Extinction and Inattention (only scored if +): 0 Total Score: 1 MDM MDM MDM Narrative Medical decision making narrative: Patient is a 59-year-old male presenting to the emergency department for generalized weakness. He was seen and examined. Initial blood pressure of 86/50. Patient mentating normally. Mildly tachypneic on initial evaluation. He is on his baseline 4 L nasal cannula. Afebrile on arrival. Differential includes but is not limited to: Pneumonia, UTI, viral illness, ACS,less likely intraabdominal source of infection no abdominal pain, nausea, vomiting, diarrhea CBC with leukocytosis of 18.7 which is mildly increased from his baseline however he is on chronic prednisone. Lactate normal at 1.8. BMP with baseline CKD. Glucose of 336, no anion gap, normal bicarb. VBG with no acidosis. No DKA. Troponin of 59. Baseline in the 40s. will trend. Urinalysis with no evidence of infection. Viral swab negative. CT brain with no acute changes. CTcervical spine, chest x-ray, pelvis x-ray with no acute traumatic findings. No opacities or pneumothorax on chest x-ray. EKG with sinus rhythm with occasionalPVC. LVH. No ischemic changes. No dysrhythmia. Unknown source of infection at this time however with initial hypotension, tachycardia no febrile here, Tylenol and patient having Zosyn given. Patient will require admission for further management workup. Patient is agreeable. Admitted to Dr. Johnson for further management. Clinical impression: Sepsis of unknown origin leukocytosis weakness fall History & Record Review Discussion w/independent historian: Patient Additional record(s) reviewed:: Prior inpatient record and Prior ED visit Lab Data Attestation: I reviewed the patient's lab results. Labs: Laboratory Results - last 24 hr 11/26/24 11/26/24 09:40 09:50 WBC 18.7 H RBC 4.14 L Hgb 10.0 L Hct 32.0 L MCV 77.3 L MCH 24.2 L MCHC 31.3 L RDW Std Deviation 51.3 H RDW Coeff of Gavi 18.7 H Plt Count 246 MPV 10.3 Immature Gran % (Auto) 1.100 H Neut % (Auto) 76.5 H Lymph % (Auto) 8.9 L [place] % (Auto) 12.8 H Eos % (Auto) 0.4 Baso % (Auto) 0.3 Absolute Neuts (auto) 14.3 H Absolute Lymphs (auto) 1.67 Nucleated RBC % 0 Platelet Estimate ADEQUATE Ovalocytes 1+ Sodium 135 Potassium 3.8 Chloride 96 L Carbon Dioxide 23.3 Anion Gap 15 BUN 42 H Creatinine 2.06 H Estim Creat Clear Calc 53.51 Est GFR (MDRD) Non-Af 36 L BUN/Creatinine Ratio 20.6 H Glucose 336 H Lactic Acid 1.8 Calcium 9.1 Total Bilirubin 0.71 AST 13 ALT 18 Alkaline Phosphatase 58 Troponin T High Sens 59 H* D Total Protein 7.2 Albumin 3.7 Globulin 3.5 Albumin/Globulin Ratio 1.1 Urine Color Yellow Urine Clarity Clear Urine pH 6.0 Ur Specific [place] 1.015 Urine Protein 15 H Urine Glucose (UA) 1000 H Urine Ketones Negative Urine Occult Blood Negative Urine Nitrite Negative Urine Bilirubin Negative Urine Urobilinogen Normal Ur Leukocyte Esterase Negative Urine RBC 0 SEEN Urine WBC 0 SEEN Ur Squamous Epith Cells 0-5 SEEN Urine Bacteria 0 SEEN Urine Mucus 0 SEEN ABG Data ABG results: ABG 11/26/24 10:34 Specimen Type JOSHUA Sample Site Not entered VBG pH 7.44 H VBG pO2 40 VBG HCO3 25 VBG Total CO2 26 VBG O2 Sat (Calc) 77 H VBG Base Excess 1 POC Mix VBG pCO2 Pt Tmp 37.0 L O2 Delivery Device Not entered Radiography Chest X-Ray - ED: 2 View, Read by ED Physician, Normal, No Acute Disease and No Infiltrates X-Ray: Right Hip, Left Hip, Read by ED Physician and No Fracture Diagnostic Testing: Clinical Impression(s) from Imaging Studies Brain CT 11/26/24 09:38 IMPRESSION: There is low-density in the deep white matter in the right and left, likely chronic ischemic change, similar to the prior. There is a 1.5 cm mucous retention cyst in the left maxillary sinus, unchanged. There is fluid density in a portion of the left mastoid air cells, similar to the prior. There is no visible acute traumatic injury. Reading Location: [facility] Cervical Spine CT 11/26/24 09:38 IMPRESSION: DEGENERATIVE CHANGES OF THE CERVICAL SPINE. NO EVIDENCE OF SIGNIFICANT OSSEOUS CENTRAL CANAL OR NEURAL FORAMINAL STENOSIS. Reading Location: [id number] Chest X-Ray 11/26/24 09:38 IMPRESSION: Examination limited by hypoinflation, as well as extensive patient motion, particularly on both lateral views. No gross acute pneumonic process is noted. Probable chronic lung changes. No pleural effusion or pneumothorax is seen. The cardiomediastinal silhouette is stable, without evidence of cardiomegaly. Generalized osteopenia is present. Mild thoracic spine degenerative changes are seen, along with DISH. No acute osseous process is identified. Reading Location: [facility] Pelvis X-Ray 11/26/24 09:38 IMPRESSION: Degenerative changes are again seen of the visualized lower lumbar spine. Sacroiliac joints appear symmetric and within the normal range for age. Mild asymmetric right hip joint degenerative changes are seen, with mild superolateral joint narrowing. No evidence of femoral head osteonecrosis. No acute fracture or dislocation is seen. If clinical concern persists, short-term follow-up imaging may be obtained to rule out a currently occult fracture. Reading Location: [facility] Discharge Plan Triage Chief Complaint: Weakness ED Provider: Betina Martinez Dx/Rx/DC Orders Prescriptions: No Action (DME) Dexcom G6 Rn Clinical Misc See Rx Instructions .ROUTE .MEDSUPPLY Qty: 1 0RF Rx Instructions: As directed (DME) infusion set for insulin pump Infusion Set See Rx Instructions .Route Rx Instructions: As directed (DME) insulin pump controller Misc See Rx Instructions .Route Rx Instructions: As directed aspirin 325 mg tablet 325 mg PO DAILY Patient Comments: coated amlodipine 5 mg tablet 5 mg PO QDAY prednisone 5 mg tablet See Rx Instructions PO .COMPLEX Rx Instructions: patient currently taking 15mg daily. tapers down to 10mg daily starting 10/07/24 oxycodone-acetaminophen 5-325 mg tablet 1 tab PO TID PRN (Reason: pain) fenofibrate 54 mg tablet 134 mg PO QDAY rosuvastatin 40 mg tablet 40 mg PO QDAY Qty: 30 11RF Brilinta 90 mg tablet 90 mg PO BID albuterol sulfate 2.5 mg /3 mL (0.083 %) solution for nebulization 2.5 mg inhalation Q4H PRN (Reason: shortness of breath or wheezing) levothyroxine 125 mcg tablet 125 mcg PO QDAY pirfenidone 267 mg tablet 267 mg PO TID tamsulosin 0.4 MG capsule 0.4 mg PO DAILY duloxetine [Cymbalta] 60 MG capsule,delayed release(DR/EC) 60 mg PO DAILY buspirone 10 mg tablet 10 mg PO BID ferrous sulfate [Feosol] 325 mg (65 mg iron) tablet 325 mg PO DAILY lisinopril 40 mg tablet 40 mg PO DAILY (DME) Dexcom G6 Transmitter Device [...] MD [Primary Care Provider] - Print Language: Italian What to do if you have Problems For any increased pain, shortness of breath, bleeding, nausea or vomiting, chestpain, or any unexpected problems, contact your Primary Care Provider. Call [facility] ([phone]) or report to the closest Emergency Room. Call 911 if necessary. 11/26/24 1218 <Electronically signed by Betina Martinez MD> Cosigner Signature (if applicable): CC: Dr. Brandt Winter MD ~ Signed [facility] Work Phone: Evaluation note* Diagnosis Onset Date [...] heart failure) chronic KIANNA (obstructive sleep apnea) [facility] Work Phone: Evaluation note* Diagnosis Onset Date [...] (obstructive sleep apnea) chronic Diabetes chronic Obesity [facility] Work Phone: Evaluation note* Diagnosis Onset Date [...] Paroxysmal atrial fibrillation acute Essential (primary) hypertension [facility] Work Phone: Evaluation note* Diagnosis Onset Date Resolution Status Left carotid bruit acute Paroxysmal atrial fibrillation acute Essential (primary) hypertension chronic Diabetes chronic Essential (primary) hypertension chronic Obesity chronic Dyspnea on exertion acute Chronic diastolic CHF (congestive heart failure) chronic KIANNA (obstructive sleep apnea) chronic Dyspnea on exertion acute Left carotid bruit acute Paroxysmal atrial fibrillation acute Essential (primary) hypertension [facility] Work Phone: Evaluation note* Diagnosis Onset Date Resolution Status Diabetes chronic Essential (primary) hypertension chronic Obesity chronic Dyspnea on exertion acute Chronic diastolic CHF (congestive heart failure) chronic KIANNA (obstructive sleep apnea) chronic Dyspnea on exertion acute Left carotid bruit acute Paroxysmal atrial fibrillation acute Essential (primary) hypertension chronic Diabetes chronic Essential (primary) hypertension chronic Obesity [facility] Work Phone: Evaluation note* Diagnosis Onset Date [...] Paroxysmal atrial fibrillation acute Essential (primary) hypertension [facility] Work Phone: Evaluation note* Diagnosis Onset Date [...] apnea) chronic Diabetes chronic Hypothyroidism chronic Obesity [facility] Work Phone: Evaluation note* Diagnosis Onset Date [...] chronic Diabetes chronic Hypothyroidism chronic Obesity chronic [facility] Work Phone: Evaluation note* Diagnosis Onset Date [...] chronic Hypothyroidism chronic Obesity chronic Vertigo acute [facility] Work Phone: Evaluation note* Diagnosis Onset Date Resolution Status Chronic diastolic CHF (congestive heart failure) chronic Chronic respiratory failure with hypoxia chronic Dyspnea on exertion chronic Obesity chronic KIANNA (obstructive sleep apnea) chronic Diabetes chronic Hypothyroidism chronic Obesity chronic Vertigo acute Diabetes chronic Essential (primary) hypertension chronic Insulin pump titration chron ic Obesity chronic Presence of insulin pump chr onic [facility] Work Phone: Evaluation note* Diagnosis Onset Date Resolution Status Vertigo acute Diabetes chronic Essential (primary) hypertension chronic Insulin pump titration chron ic Obesity chronic Presence of insulin pump chr onic Carotid stenosis acute Double vision acute Left carotid bruit acute Vertigo acute [facility] Work Phone: Evaluation note* Diagnosis Onset Date Resolution Status Carotid stenosis acute Double vision acute Left carotid bruit acute Vertigo acute Post op infection acute Thyroid nodule acute CKD (chronic kidney disease) chronic Diabetes chronic Hypothyroidism chronic Microalbuminuria chronic Obesity chronic Multiple thyroid nodules acu te [facility] Work Phone: Evaluation note* Diagnosis Onset Date Resolution Status Post op infection acute Thyroid nodule acute CKD (chronic kidney disease) chronic Diabetes chronic Hypothyroidism chronic Microalbuminuria chronic Obesity chronic Multiple thyroid nodules acu te CKD (chronic kidney disease) chronic Diabetes chronic Hypothyroidism chronic Microalbuminuria chronic Neuropathy chronic Obesity chronic [facility] Work Phone: Evaluation note* Diagnosis Onset Date [...] on exertion chronic Essential (primary) hypertension chronic [facility] Work Phone: Evaluation note* Diagnosis Onset Date [...] hypertension chronic Multiple thyroid nodules acu te [facility] Work Phone: Evaluation note* Diagnosis Onset Date [...] nodules acu te Polyneuropathy acute Hyperlipidemia chronic [facility] Work Phone: Evaluation note* Diagnosis Onset Date [...] cerebrovascular accident (CVA) acute Peripheral vestibulopathy ac [place] Polyneuropathy acute Hyperlipidemia chronic Double vision resolved [facility] Work Phone: Evaluation note* Diagnosis Onset Date Resolution Status CKD (chronic kidney disease) chronic Diabetes chronic Hypothyroidism chronic Microalbuminuria chronic Neuropathy chronic Obesity chronic Left carotid bruit acute Paroxysmal atrial fibrillation acute Dyspnea on exertion chronic Essential (primary) hypertension chronic Multiple thyroid nodules acu te History of TIA (transient ischemic attack) acute Ischemic cerebrovascular accident (CVA) acute Peripheral vestibulopathy ac [place] Polyneuropathy acute Hyperlipidemia chronic Double vision resolved [facility] Work Phone: Evaluation note* Diagnosis Onset Date Resolution Status Left carotid bruit acute Paroxysmal atrial fibrillation acute Dyspnea on exertion chronic Essential (primary) hypertension chronic Multiple thyroid nodules acu te History of TIA (transient ischemic attack) acute Ischemic cerebrovascular accident (CVA) acute Peripheral vestibulopathy ac [place] Polyneuropathy acute Hyperlipidemia chronic Double vision resolved CKD (chronic kidney disease) chronic Diabetes chronic Essential (primary) hypertension chronic Hypothyroidism chronic Neuropathy chronic Obesity chronic Carotid stenosis acute History of TIA (transient ischemic attack) acute Ischemic cerebrovascular accident (CVA) acute Polyneuropathy acute [facility] Work Phone: Evaluation note* Diagnosis Onset Date Resolution Status CKD (chronic kidney disease) chronic Diabetes chronic Essential (primary) hypertension chronic Hypothyroidism chronic Neuropathy chronic Obesity chronic History of TIA (transient ischemic attack) acute Ischemic cerebrovascular accident (CVA) acute Polyneuropathy acute Carotid stenosis chronic Carotid stenosis chronic Carotid stenosis chronic [facility] Work Phone: Evaluation note* Diagnosis Cerebrovascular accident (CVA), unspecified mechanism (HCC)- Primary Cerebrovascular accident (CVA), unspecified mechanism (HCC) documented in this encounter [facility]* Diagnosis Bilateral carotid artery stenosis- Primary Occlusion and stenosis of carotid artery without mention of cerebral infarction Ischemic cerebrovascular accident (CVA) (HCC) documented in [facility] encounter [facility]* Diagnosis Chronic kidney disease, unspecified CKD stage- Primary documented in [facility]* Diagnosis Ischemic cerebrovascular accident (CVA) (HCC)- Primary Bilateral carotid artery stenosis Occlusion and stenosis of carotid artery without mention of cerebral infarction documented [facility]* Diagnosis Bilateral carotid artery occlusion Occlusion and stenosis of carotid artery without mention of cerebral infarction [facility]* Diagnosis Cerebrovascular accident (CVA), unspecified mechanism (HCC)- Primary Bilateral carotid artery stenosis Occlusion and stenosis of carotid artery without mention of cerebral infarction [facility]* Diagnosis Ischemic cerebrovascular accident (CVA) (HCC) Bilateral carotid artery stenosis Occlusion and stenosis of carotid artery without mention of cerebral infarction [facility]* Diagnosis Bilateral carotid artery stenosis- Primary Occlusion and stenosis of carotid artery without mention of cerebral infarction [facility]* Diagnosis ILD (interstitial lung disease) (Multi)- Primary Postinflammatory pulmonary fibrosis Pulmonary hypertension (Multi) Other chronic pulmonary heart diseases Chronic respiratory failure with hypoxia documented in this encounter [facility] Work Phone: Evaluation note* Diagnosis ILD (interstitial lung disease) (Multi) Postinflammatory pulmonary fibrosis documented in this encounter [facility] Work Phone: Evaluation note* Diagnosis Pulmonary hypertension (Multi) Other chronic pulmonary heart diseases documented in this encounter [facility] Work Phone: Evaluation note* Diagnosis ILD (interstitial lung disease) (Multi) Postinflammatory pulmonary fibrosis documented in this encounter [facility] Work Phone: Evaluation note* Diagnosis ILD (interstitial lung disease) (Multi)- Primary Postinflammatory pulmonary fibrosis Chronic respiratory failure with hypoxia KIANNA (obstructive sleep apnea) Obstructive sleep apnea (adult) (pediatric) BMI 40.0-44.9, adult (Multi) Diastolic heart failure, unspecified HF chronicity documented in this encounter [facility] Work Phone: Evaluation note* Diagnosis ILD (interstitial lung disease) (Multi) Postinflammatory pulmonary fibrosis documented in this encounter [facility] Work Phone: Evaluation note* Diagnosis ILD (interstitial lung disease) (Multi)- Primary Postinflammatory pulmonary fibrosis Chronic respiratory failure with hypoxia KIANNA (obstructive sleep apnea) Obstructive sleep apnea (adult) (pediatric) BMI 40.0-44.9, adult (Multi) Diastolic heart failure, unspecified HF chronicity documented in this encounter [facility] Work Phone: Evaluation note* Diagnosis ILD (interstitial lung disease) (Multi) Postinflammatory pulmonary fibrosis documented in this encounter [facility] Work Phone: Evaluation note* Diagnosis Bilateral carotid artery stenosis Occlusion and stenosis of carotid artery without mention of cerebral infarction documented in this encounter [facility]* Diagnosis Bilateral carotid artery stenosis Occlusion and stenosis of carotid artery without mention of cerebral infarction documented in this encounter [facility] note* Diagnosis ILD (interstitial lung disease) (Multi)- Primary Postinflammatory pulmonary fibrosis Chronic respiratory failure with hypoxia BMI 40.0-44.9, adult (Multi) Diastolic heart failure, unspecified HF chronicity documented in this encounter [facility] Work Phone: History and physical note Author Ochoa Johnson [facility] Note Date/Time November 26, 2024 12 :33pm [facility] Medical Records Department [address] [place] [address] H&P Exam - Hospitalist 11/26/24 1209 MR#: [id number] Acct: [id number] Name: KRUNAL LEOS Rep #:[id number] : 1965 59 From: Ochoa Johnson DO PCP: Dr. Brandt Winter MD Status:REG ER Location: ED HPI - General General Date of Service: 11/26/24 Chief Complaint: Weakness HPI Narrative KRUNAL LEOS, is a 59 M with a history of pulmonary fibrosis presents with weakness. Weakness began earlier this morning where he was having difficulty walking to the bathroom and then get to the point where he just fell because he was so weak. At baseline he is limited no due to his pulmonary disease and doesrequire being put in a wheelchair for going to doctors visits and such. Over the past few days, he has noticed a boil on his right leg. Today feels much worse given the location, which is in his groin, he is not able to see it. He presented to the emergency room and was diagnosed with sepsis, received a liter of IV fluids as well as vancomycin and Zosyn. 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 Morbid obesity with BMI of 45.0-49.9, adult Atherosclerotic heart disease of [place] coronary artery without angina pectoris Mini stroke [...] infarction (NSTEMI) (03/28/20) TIA (transient ischemic attack) (2019) Hodgkin disease GERD (gastroesophageal reflux disease) BPH (benign prostatic hyperplasia) Anxiety and depression Morbid obesity with BMI of 45.0-49.9, adult Nephrolithiasis Diabetes mellitus, type II Home Medications ?Medication ?Instructions ?Recorded ?Last Taken ?Type tamsulosin 0.4 mg capsule 0.4 mg PO DAILY prostate 12/1509/26/24 History duloxetine 60 mg capsule,delayed 60 mg PO DAILY depres wanda 04/17/18 09/26/24 History release (Cymbalta) blood-glucose,equity structurer,cont #1 ea 07/26/20 Unknown Rx (Dexcom G6 Rn Clinical) blood-glucose transmitter (Dexcom #1 ea 12/29/21 Unkno wn Rx G6 Transmitter device) infusion set for insulin pump 10/08/22 Unknown Histor y insulin pump controller 10/08/22 Unknown History blood-glucose sensor (Dexcom G6 #1 ea 02/25/23 Unknown Rx Sensor device) insulin regular hum U-500 conc 500 75 unit (0.15 mL) c ontinuous 11/11/23 09/26/24 Rx unit/mL subcutaneous soln (Humulin subcutaneous infusi on DAILY blood R U-500 (Concentrated) Insulin) sugar #20 mL ferrous sulfate 325 mg (65 mg 325 mg PO DAILY anemia 1 05/03/23 09/26/24 History iron) tablet (Feosol) amlodipine 5 mg tablet 5 mg PO QDAY blood pressure 03/13/24 09/26/24 History aspirin 325 mg tablet 325 mg PO DAILY heart health 03/13/24 09/26/24 History metoprolol succinate 100 mg 100 mg PO DAILY heart #90 tabs 03/27/24 09/26/24 Rx tablet,extended release 24 hr lisinopril 40 mg tablet 40 mg PO DAILY blood pressur e 04/12/24 09/26/24 History ticagrelor 90 mg tablet (Brilinta) 90 mg PO BID 09/26/24 History furosemide 40 mg tablet (Lasix) 40 mg PO BID diuretic #270 tabs 06/23/24 09/26/24 Rx pantoprazole 40 mg tablet,delayed 40 mg PO BID acid re flux #60 tabs 07/22/24 09/26/24 Rx release (Protonix) empagliflozin 25 mg tablet 25 mg PO DAILY diabetes #30 tabs 08/12/24 09/26/24 Rx (Jardiance) apixaban 5 mg tablet (Eliquis) 5 mg PO BID blood thinn er #180 tabs 08/31/24 09/26/24 Rx buspirone 10 mg tablet 10 mg PO BID Anxiety 5 09/26/24 History oxycodone-acetaminophen 5 mg-325 1 tab PO TID PRN pain 09/16/24 09/25/24 History mg tablet prednisone 5 mg tablet See Rx Instructions PO .COMP SOFY 09/16/24 09/26/24 History steriod fenofibrate 54 mg tablet 134 mg PO QDAY 10/27/24 Unkn own History rosuvastatin 40 mg tablet 40 mg PO QDAY #30 tabs 10/27 Unknown Rx albuterol sulfate 2.5 mg/3 mL 2.5 mg inhalation Q4H [place] N 11/25/24 Unknown History (0.083 %) solution for nebulization shortness of breat h or wheezing levothyroxine 125 mcg tablet 125 mcg PO QDAY 11/25/24 Unknown History pirfenidone 267 mg tablet 267 mg PO TID 11/25/24 Unkno wn History Allergy/AdvReac Type Severity Reaction Status Date / Time metoclopramide HCl (From Allergy Severe Anaphylaxis Verified 11/25/24 12:47 Reglan) Family History Brother Heart disease Mother [...] you participate in: none ROS ROS Narrative On oxygen 22/10. All review of systems were negative except as mentioned above in the history of present illness and the other review of systems. Vital Signs Vital Signs Vital Signs: 11/26/24 09:16 11/26/24 09:16 11/26/24 09:23 Temperature 36.6 C 36.6 C Temperature Source Oral Oral Pulse Rate 92 92 Respiratory Rate 27 H 27 H Respiratory Effort Normal Non-Labored Respiratory Pattern Tachypnea Blood Pressure 86/50 L 86/50 L Blood Pressure Mean 62 62 Pulse Ox 97 97 Oxygen Delivery Method Nasal Cannula Nasal Cannula Oxygen Flow Rate (L/min) 4 4 11/26/24 09:39 11/26/24 09:52 11/26/24 10:00 Temperature Temperature Source Pulse Rate 89 Respiratory Rate 23 H Respiratory Effort Respiratory Pattern Blood Pressure 80/56 L Blood Pressure Mean 63 Pulse Ox 98 Oxygen Delivery Method Nasal Cannula Oxygen Flow Rate (L/min) 11/26/24 10:00 11/26/24 10:15 11/26/24 10:26 Temperature 37.7 C H 37.8 C H Temperature Source Core Core Pulse Rate 88 88 Respiratory Rate 24 H 24 H Respiratory Effort Respiratory Pattern Blood Pressure 80/56 L 109/59 L 98/55 L Blood Pressure Mean 63 75 69 Pulse Ox 99 99 Oxygen Delivery Method Nasal Cannula Oxygen Flow Rate (L/min) 11/26/24 10:30 11/26/24 10:45 11/26/24 11:00 Temperature 37.9 C H 37.8 C H 37.8 C H Temperature Source Core Core Core Pulse Rate 91 86 81 Respiratory Rate 22 H 24 H 23 H Respiratory Effort Respiratory Pattern Blood Pressure 98/55 L 90/56 L 106/65 Blood Pressure Mean 69 67 78 Pulse Ox 100 100 100 Oxygen Delivery Method Oxygen Flow Rate (L/min) 11/26/24 11:15 11/26/24 11:30 11/26/24 11:45 Temperature 37.6 C H 37.4 C H 37.5 C H Temperature Source Core Core Core Pulse Rate 90 85 95 Respiratory Rate 23 H 18 26 H Respiratory Effort Respiratory Pattern Blood Pressure 109/66 104/60 99/88 H Blood Pressure Mean 79 74 93 Pulse Ox 96 100 99 Oxygen Delivery Method Oxygen Flow Rate (L/min) 11/26/24 11:54 11/26/24 12:00 Temperature 37.5 C H 37.5 C H Temperature Source Core Core Pulse Rate 86 92 Respiratory Rate 21 H 30 H Respiratory Effort Respiratory Pattern Blood Pressure 99/88 H 79/52 L Blood Pressure Mean 91 62 Pulse Ox 99 98 Oxygen Delivery Method Nasal Cannula Oxygen Flow Rate (L/min) 4 Weight Weight: 145.1 kg Body Mass Index (BMI) 47.2 Physical Exam Const Constitutional Narrative: Lying in bed. Comfortable. On oxygen. No respiratory distress. No conversational dyspnea. HEENT normocephalic, head/scalp atraumatic, hearing grossly normal bilaterally and moist oral mucous membranes Resp normal respiratory effort and no retractions Resp Narrative: Bibasilar crackles Cardio regular rate, regular rhythm, S1 normal heart sound and S2 normal heart sound GI normal to inspection, nondistended, normoactive bowel sounds, soft to palpation,non-tender and non-distended GI Narrative: Obese. Extremity Extremity Narrative: Nonpitting lower extremity edema. Neuro Neuro Narrative: Area of induration and erythema in the proximal medial right thigh. Does have aopen area that was raised and had some blood but not actively bleeding. Psych affect normal Results Lab / Micro Data Attestation: I reviewed the patient's lab results. 11/26/24 09:40 11/26/24 09:40 Labs: Laboratory Results - last 24 hr 11/26/24 09:40: WBC 18.7 H, RBC 4.14 L, Hgb 10.0 L, Hct 32.0 L, MCV 77.3 L, MCH 24.2 L, MCHC 31.3 L, RDW Std Deviation 51.3 H, RDW Coeff of Gavi 18.7 H, Plt Count 246, MPV 10.3, Immature Gran % (Auto) 1.100 H, Neut % (Auto) 76.5 H, Lymph% (Auto) 8.9 L, Wharton % (Auto) 12.8 H, Eos % (Auto) 0.4, Baso % (Auto) 0.3, Absolute Neuts (auto) 14.3 H, Absolute Lymphs (auto) 1.67, Nucleated RBC % 0, Platelet Estimate ADEQUATE, Ovalocytes 1+, Sodium 135, Potassium 3.8, Chloride 96 L, Carbon Dioxide 23.3, Anion Gap 15, BUN 42 H, Creatinine 2.06 H, Estim Creat Clear Calc 53.51, Est GFR (MDRD) Non-Af 36 L, BUN/Creatinine Ratio 20.6 H,Glucose 336 H, Lactic Acid 1.8, Calcium 9.1, Total Bilirubin 0.71, AST 13, ALT 18, Alkaline Phosphatase 58, Troponin T High Sens 59 H* D, Total Protein 7.2, Albumin 3.7, Globulin 3.5, Albumin/Globulin Ratio 1.1 11/26/24 09:50: Urine Color Yellow, Urine Clarity Clear, Urine pH 6.0, Ur Specific [place] 1.015, Urine Protein 15 H, Urine Glucose (UA) 1000 H, Urine Ketones Negative, Urine Occult Blood Negative, Urine Nitrite Negative, Urine Bilirubin Negative, Urine Urobilinogen Normal, Ur Leukocyte Esterase Negative, Urine RBC 0 SEEN, Urine WBC 0 SEEN, Ur Squamous Epith Cells 0-5 SEEN, Urine Bacteria 0 SEEN, Urine Mucus 0 SEEN Micro: Microbiology 11/26/24 09:55 Mucosa - Nose SARS-CoV-2, Influenza & RSV (PCR) - Final ABG Data ABG results: ABG 11/26/24 10:34 Specimen Type JOSHUA Sample Site Not entered VBG pH 7.44 H VBG pO2 40 VBG HCO3 25 VBG Total CO2 26 VBG O2 Sat (Calc) 77 H VBG Base Excess 1 POC Mix VBG pCO2 Pt Tmp 37.0 L O2 Delivery Device Not entered EKG Initial EKG: Attestation: I personally reviewed and interpreted this EKG as follows: Prior EKG tracings: available for review EKG Rhythm Intrepretation: Sinus Rhythm (LVH) Imaging Radiology Impression Brain CT 11/26/24 09:38 IMPRESSION: There is low-density in the deep white matter in the right and left, likely chronic ischemic change, similar to the prior. There is a 1.5 cm mucous retention cyst in the left maxillary sinus, unchanged. There is fluid density in a portion of the left mastoid air cells, similar to the prior. There is no visible acute traumatic injury. Reading Location: [facility] Cervical Spine CT 08/28/25 09:38 IMPRESSION: DEGENERATIVE CHANGES OF THE CERVICAL SPINE. NO EVIDENCE OF SIGNIFICANT OSSEOUS CENTRAL CANAL OR NEURAL FORAMINAL STENOSIS. Reading Location: [id number] Chest X-Ray 11/26/24 09:38 IMPRESSION: Examination limited by hypoinflation, as well as extensive patient motion, particularly on both lateral views. No gross acute pneumonic process is noted. Probable chronic lung changes. No pleural effusion or pneumothorax is seen. The cardiomediastinal silhouette is stable, without evidence of cardiomegaly. Generalized osteopenia is present. Mild thoracic spine degenerative changes are seen, along with DISH. No acute osseous process is identified. Reading Location: [facility] Pelvis X-Ray 11/26/24 09:38 IMPRESSION: Degenerative changes are again seen of the visualized lower lumbar spine. Sacroiliac joints appear symmetric and within the normal range for age. Mild asymmetric right hip joint degenerative changes are seen, with mild superolateral joint narrowing. No evidence of femoral head osteonecrosis. No acute fracture or dislocation is seen. If clinical concern persists, short-term follow-up imaging may be obtained to rule out a currently occult fracture. Reading Location: [facility] Assessment & Plan Assessment/Plan (1) Sepsis: PLAN: Present on arrival. qSOFA of 2 with hypertension and tachypnea. Secondary to right lower extremity cellulitis. Patient did not receive 30 cc/kg of IV fluid given his history of heart failure and concern for worsening respiratory distress given large quantity of fluid thepatient would require. Complicated by the fact the patient does take steroids chronically for his pulmonary fibrosis. Most recently has been weaned down to 15 mg daily of prednisone. May have a component of adrenal insufficiency in light of the acuteinfection so patient will receive a one-time dose of hydrocortisone 100 mg todayand then will start prednisone 40 mg daily starting on the and then would anticipate taper down to 15 mg. (2) Cellulitis: PLAN: Right lower extremity in the groin. Adjacent to the scrotum but no evidence of any Jesús's gangrene. Vancomycin and pip-tazo (3) Debility: PLAN: Patient is a wheelchair-bound for trips such as to the doctor's office. Does able to go to his own bathroom however. But given the relatively limited performance status, will consult PT OT evaluate and treat to see, with when the patient is ready for discharge if he would be stable for home or if you may require additional therapy resources. PLAN: Plan Chronic conditions * Chronic respiratory failure secondary pulmonary fibrosis: Currently stable at this time. Patient to follow-up with his transport medic as outpatient. Patient takes pirfenidone for his pulmonary fibrosis as a trial. Pulmonary has told the family for that medication to be held until he is discharged. Patient on steroids with prednisone. Please see above for further details. * Diabetes mellitus type 2: Does use an insulin pump but not working currently will put him on 30 units of glargine twice daily plus a sliding scale insulin. Check an A1c. Continue with empagliflozin * HFpEF. Appears compensated at this time. Hold furosemide given the sepsis at this time. * Hypertension: Meds with hold parameters but will hold lisinopril and furosemide for now. * Obesity class III: Complicates care and recovery * BPH: Continue tamsulosin * History of CVA: Continue with aspirin and ticagrelor. In the patient is already on apixaban as well, will change his aspirin from 3 25-81 daily. VTE prophylaxis: Not indicated as patient is already on apixaban CODE STATUS: Addressed with patient. Initially patient stated that he would want to have CPR but would not want to be put on ventilator. When I discussed with he and his family that I would recommend he either be full code or DNR Comfort Care arrest no intubation. He chose the latter. Patient advised as well as his family that he could change his mind anytime just inform us if he does so. Charges/Coding Visit Charges Inpatient E&M: 68625 Init Hosp L3 11/26/24 1233 <Electronically signed by Ochoa Johnson DO> Cosigner Signature (if applicable): CC: Dr. Brandt Winter MD; Dr. Ochoa Johnson DO; Rosalino Padron~ Signed [facility] Work Phone: History of Present illness Narrative* Rosalino Padron MD - 08/28/2024 1:00 PM EDT Images from the original note were not included. Department of Medicine Division of Pulmonary, Critical Care, and Sleep Medicine Consultation [address] [facility] Patient was referred by his PCP (Dr. [...] surgery total pulmonary decortication in 2016 at [facility]. He was hospitalized in [place] from 03/02-03/04/2024 for acute hypoxic respiratory failure. [...] Review Audit Reviewed by Heavenly Sparks MA ([employer]) on 08/28/24 at 1158 Medication Order Taking? Sig Documenting Provider Last Dose Status albuterol 90 mcg/actuation inhaler [id number] INHALE 2 PUFFS BY MOUTH EVERY 4 HOURS NEEDED FOR SHORTNESS OF BREATH OR WHEEZING Historical Provider, Active amLODIPine (Norvasc) 5 mg tablet [id number] Take 1 tablet (5 mg) by mouth once daily. Historical Provider, Active aspirin 325 mg tablet [id number] Take 1 tablet (325 mg) by mouth once daily. Historical Provider, LORNActive atorvastatin (Lipitor) 80 mg tablet [id number] Take 1 tablet (80 mg) by mouth once daily at bedtime.Historical Provider, Active betamethasone, augmented, (Diprolene) 0.05 % lotion [id number] APPLY TO RASH ON THE TRUNK OR SCALP 1-2 TIMES DAILY NEEDED Historical ProviderMD Active bismuth subsalicylate (Pepto Bismol) 262 mg chewable tablet [id number] CHEW AND SWALLOW 2 TABLETS BYMOUTH 3 TIMES A DAY for 2 weeks. max 16 tablets per 24 hours Patient not taking: Reported on 08/07/2024 Historical ProviderMD Active Brilinta 90 mg tablet [id number] 1 tablet (90 mg). Historical ProviderMD Active busPIRone (Buspar) 10 mg tablet [id number] Take 1 tablet (10 mg) by mouth 3 times a day. Historical ProviderMD Active clopidogrel (Plavix) 75 mg tablet [id number] Take 1 tablet (75 mg) by mouth early in the morning.. Historical ProviderMD Active dapagliflozin propanediol (Farxiga) 5 mg [id number] Take 1 tablet (5 mg) by mouth once daily. Historical ProviderMD Active Dexcom G6 Sensor device [id number] USE DIRECTED FOR CONTINUOUS BLOOD GLUCOSE MONITORING, CHANGE SENSOR EVERY 10 DAYS Historical ProviderMD Active DULoxetine (Cymbalta) [address] capsule [id number] Take 1 capsule (60 mg) by mouth once daily. Historical ProviderMD Active Eliquis 5 mg tablet [id number] Take 1 tablet (5 mg) by mouth 2 times a day. Historical ProviderMD Active ergocalciferol (Vitamin D-2) 1250 mcg (50,000 units) capsule [id number] Take 1 capsule (1,250 mcg) by mouth. Historical ProviderMD Active fenofibrate (Tricor) 54 mg tablet [id number] Take 1 tablet (54 mg) by mouth once daily. Historical ProviderMD Active furosemide (Lasix) 40 mg tablet [id number] Take 1 tablet (40 mg) by mouth. Gloria ProviderMD Active glimepiride (Amaryl) 4 mg tablet [id number] Take 1 tablet (4 mg) by mouth early in the morning.. Patient not taking: Reported on 08/07/2024 Gloria Rahman MD Active glipiZIDE (Glucotrol) 5 mg tablet [id number] Take 1 tablet (5 mg) by mouth. Patient not taking: Reported on 08/07/2024 Gloria Rahman MD Active HumuLIN R U-500, Conc, Insulin 500 unit/mL CONCENTRATED injection [id number] INJECT 75 UNITS DAILY VIA CONTINUOUS SUBCUTANEOUS INFUSION. DISCARD VIAL AFTER 40 DAYS Patient not taking: Reported on 08/07/2024 Gloria Rahman MD Active Jardiance 25 mg [id number] Take 1 tablet (25 mg) by mouth once daily. Gloria Rahman MD Active levothyroxine (Synthroid, Levoxyl) 112 mcg tablet [id number] Take 1 tablet (112 mcg) by mouth once daily. Gloria Rahman MD Active lisinopril 40 mg tablet [id number] Take 1 tablet (40 mg) by mouth once daily. Gloria Rahman MD Active metFORMIN (Glucophage) 500 mg tablet [id number] Take 1 tablet (500 mg) by mouth 2 times daily (morning and late afternoon). Gloria Rahman MD Active metoprolol succinate XL (Toprol-XL) 100 mg 24 hr tablet [id number] TAKE 1 TABLET BY MOUTH DAILY for heart Historical MD Lacey Active Mucinex DM 60-1,200 mg tablet extended release 12 hr [id number] Take 1 tablet by mouth every 12 hours. Gloria Rahman MD Active oxyCODONE-acetaminophen (Percocet) 5-325 mg tablet [id number] Take 1 tablet by mouth 2 times a day as needed. Patient not taking: Reported on 08/07/2024 Gloria Rahman MD Active pantoprazole (ProtoNix) 40 mg EC tablet [id number] Take 1 tablet (40 mg) by mouth. Historical MD Lacey Active potassium citrate CR (Urocit-K-10) 10 mEq ER tablet [id number] Take 1 tablet (10 mEq) by mouth twicea day. Gloria Rahman MD Active predniSONE (Deltasone) 20 mg tablet [id number] Take 0.5 tablets (10 mg) by mouth early in the morning.. Gloria Rahman MD Active predniSONE (Deltasone) 20 mg tablet [id number] Take 2 tablets (40 mg) by mouth once daily. Patient not taking: Reported on 08/07/2024 Rosalino Padron MD Active predniSONE (Deltasone) 5 mg tablet [id number] Take 4 tablets (20 mg) by mouth once daily for 30 days, THEN 3 tablets (15 mg) once daily for 30 days, THEN 2 tablets (10 mg) once daily for 30 days, THEN1 tablet (5 mg) once daily for 14 days. Rosalino Padron MD Active spironolactone (Aldactone) 50 mg tablet [id number] Take 1 tablet (50 mg) by mouth once daily. Patient not taking: Reported on 08/07/2024 Historical Provider, Active tamsulosin (Flomax) 0.4 mg 24 hr capsule [id number] Take 1 capsule (0.4 mg) by mouth once daily. Historical Provider, Active traMADol (Ultram) 50 mg tablet [id number] Take 1 tablet (50 mg) by mouth. [...] plan for cryobiospy with Dr. Coleman after Jackie 13th (since he is traveling) -will treat empirically [...] Rosalino Padron MD 08/28/2024 [facility] Work [facility]: Hospital course Narrative No data available for this section [facility] Discharge instructions No data available for this section [facility] Hospital Discharge instructions* Attachments The following attachments cannot be sent through Care Everywhere. * Arteriogram Discharge Instructions (Italian) documented in this [facility] Discharge instructions Additional Instructions 1. Hold Flomax as discussed due to urinary incontinence 2. Okay to utilize Imodium as needed for your bowel incontinence 3. If your blood sugars remain elevated despite weaning your steroids please contact your primary meter engineer 4. Would have extensive conversation in the future before holding aspirin, Brilinta, and Eliquis 5. Please follow-up with your neurologist as previously recommended Date of Discharge: 09/28/24[facility] Work Phone: Hospital Discharge instructionsAdditional Instructions You had cellulitis of your right leg. Due to illness with stress in your body that cause your pressure to drop complicated by the fact that you take steroids chronically with prednisone. You been on higher dose prednisone decrease that to your baseline of 15 mg daily. [facility] Work Phone: Instructions* Attachments The following attachments cannot be sent through Care Everywhere. * Risk Factors for Stroke (Italian) * Stroke (Italian) * Carotid Artery Disease (Italian) [facility] Patient Instructions* Rosalino Padron MD - 08/28/2024 [...] and walking test. For scheduling purposes: Call [phone] to schedule a breathing or a walking test Call [phone] to schedule EKG's, Echocardiograms and Cardiopulmonary Stress Tests. Call [phone] to schedule Radiology tests such as Nuclear Medicine Stress Tests, CT Scans, and MRI's. Should you have any questions Please Call our pulmonary nurse Linda Marie at [phone] or my rehab care assistant Puneet Leone at [phone] documented in this [facility] Work Phone: Reason for referral (narrative)No reason for referral information availableWAshtabula [facility] Work Phone: Reason for visit Narrative* Imaging (Routine) - Closed Specialty Diagnoses / Procedures Referred By Contac t Referred To Contact Radiology Diagnoses Bilateral carotid artery stenosis Ischemic cerebrovascular accident (CVA) (HCC) Procedures CTA head neck angio w and wo IV contrast Oziel Culp MD [address] [place] [address] Phone: tel: fax: Referral ID Status Reason Start Date Expiration Date Visits Re quested Visits Authorized [id number] Closed 01/06/2024 01/05/2025 1 1 [facility] LendineroReason for visit Narrative* Imaging (Routine) - Closed Specialty Diagnoses / Procedures Referred By Contac t Referred To Contact Cardiology Diagnoses Bilateral carotid artery occlusion Procedures Vascular US carotid artery duplex bilateral Suzy Jauregui MD [address] [place] [address] Phone: tel: fax: Referral ID Status Reason Start Date Expiration Date Visits Re quested Visits Authorized [id number] Closed 10/15/2023 10/14/2024 1 1 [facility] HealthReason for visit Narrative* Imaging (Routine) - Closed Specialty Diagnoses / Procedures Referred By Contac t Referred To Contact Radiology Diagnoses Ischemic cerebrovascular accident (CVA) (HCC) Bilateral carotid artery stenosis Procedures IR angiogram cerebral with possible intervention Mey Loya, CUT OFF MACHINE OPERATOR - BUS OPERATOR [address] [address] Phone: tel: fax: Referral ID Status Reason Start Date Expiration Date Visits Re quested Visits Authorized [id number] Closed 02/13/2024 02/12/2025 1 [facility] (Routine) - Authorized Specialty Diagnoses / Procedures Referred By Contac t Referred To Contact Radiology Diagnoses ILD (interstitial lung disease) (Multi) Procedures CT chest high resolution Rosalino Padron MD [id number] [place] [address] Phone: tel: fax: Referral ID Status Reason Start Date Expiration Date Visits Requested Visits Authorized [id number] Authorized Perform Procedure 06/26/2024 06/26/2025 1 1 [facility] Work Phone: Reason for visit Narrative* CV Imaging (Routine) - Authorized Specialty Diagnoses / Procedures Referred By Contac t Referred To Contact Cardiology Diagnoses Pulmonary hypertension (Multi) Procedures Transthoracic Echo (TTE) Complete [place] ECHO TTHRC R-T 2D W/WOM-MODE COMPL SPEC&COLR D Rosalino Padron MD [id number] [place], [place] [id number] Phone: tel: fax: Referral ID Status Reason Start Date Expiration Date Visits Requested Visits Authorized [id number] Authorized Perform Procedure 06/26/2024 06/26/2025 1 1 [facility] Work Phone: reason for visit Narrative* PFT (Routine) - Pending Review Specialty Diagnoses / Procedures Referred By Contac t Referred To Contact Diagnoses ILD (interstitial lung disease) (Multi) Procedures Pulmonary Stress Test (6 Min. Walk) Rosalino Padron MD [id number] [place] [address] Phone: tel: fax: Referral ID Status Reason Start Date Expiration Date V isits Requested Visits Authorized [id number] Pending Review 06/26/2024 06/26/2025 1 1 [facility] Work Phone: reason for visit Narrative* PFT (Routine) - Pending Review Specialty Diagnoses / Procedures Referred By Contac t Referred To Contact Diagnoses ILD (interstitial lung disease) (Multi) Procedures Complete Pulmonary Function Test (Spirometry/DLCO/Lung Volumes) Rosalino Padron MD [id number] [place], [place] [id number] Phone: tel: fax: Referral ID Status Reason Start Date Expiration Date V isits Requested Visits Authorized [id number] Pending Review 06/26/2024 06/26/2025 1 1 [facility] Work Phone: reason for visit Narrative* PFT (Routine) - Pending Review Specialty Diagnoses / Procedures Referred By Contac t Referred To Contact Diagnoses ILD (interstitial lung disease) (Multi) Procedures Spirometry Pre/Post Bronchodilator Rosalino Padron MD [id number] [place], [place] [id number] Phone: tel: fax: Referral ID Status Reason Start Date Expiration Date V isits Requested Visits Authorized [id number] Pending Review 08/07/2024 08/07/2025 1 1 [facility] Work Phone: reason for visit Narrative* PFT (Routine) - Pending Review Specialty Diagnoses / Procedures Referred By Contac t Referred To Contact Diagnoses ILD (interstitial lung disease) (Multi) Procedures Pulmonary Stress Test (6 Min. Walk) Rosalino Padron MD [id number] [place] [address] Phone: tel: fax: Referral ID Status Reason Start Date Expiration Date V isits Requested Visits Authorized [id number] Pending Review 08/07/2024 08/07/2025 1 1 [facility] Work Phone: reason for visit Narrative* PFT (Routine) - Pending Review Specialty Diagnoses / Procedures Referred By Contac t Referred To Contact Diagnoses ILD (interstitial lung disease) (Multi) Procedures DLCO / Diffusion Capacity Rosalino Padron MD [id number] [place] [address] Phone: tel: fax: Referral ID Status Reason Start Date Expiration Date V isits Requested Visits Authorized [id number] Pending Review 08/07/2024 08/07/2025 1 1 [facility] Work Phone: Reason for visit Narrative* Endoscopy (Routine) - Authorized Specialty Diagnoses / Procedures Referred By Contac t Referred To Contact Gastroenterology Diagnoses ILD (interstitial lung disease) (Multi) Procedures Bronchoscopy Tier 2; w BAL, [place] [address] [place] [address] Phone: tel: fax: Referral ID Status Reason Start Date Expiration Date V isits Requested Visits Authorized [id number] Authorized 08/11/2024 08/11/2025 1 1 [facility] Work Phone: Summary Purpose Family History No [...] FoundDocuments on File Type Date Recorded Patient 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 Advance Directive(s) 08/19/2015 12:10 PM Advance Directive(s) 09/10/2015 4:56 PM Advance Directive Response Recorded Date/ Time Name of Medical Power of Retail And Restaurant Associate Tia Glasgo/w awais June 19, 2021 11:06am Advance Directives Yes September 08 3:58am Living Will No July 16, 2021 2:23pm Power of Retail And Restaurant Associate No July 16 2:23pm Advance Directive Response Recorded Date/ Time Name of Medical Power of Retail And Restaurant Associate Tia Glasgo/w awais June 19, 2021 11:06am Advance Directives Yes September 08 3:58am Living Will Yes September 04, 2021 6 :29am Power of Retail And Restaurant Associate Yes September 04, 2021 6:29am Advance Directive Response Recorded Date/ Time Name of Medical Power of Retail And Restaurant Associate Tia Glasgo/w awais June 19, 2021 11:06am Name of Medical Power of Retail And Restaurant Associate tia leos September 04, 2021 6:29am Advance Directives Yes September 08 3:58am Living Will Yes September 04, 2021 6 :29am Power of Retail And Restaurant Associate Yes September 04, 2021 6:29am Advance Directive Response Recorded Date/ Time Advance Directives Yes September 08 2:58am Living Will Yes September 04, 2021 5 :29am Power of Retail And Restaurant Associate Yes September 04, 2021 5:29am Advance Directive Response Recorded Date/ Time Advance Directives on File Yes 2022 8:42am Name of Medical Power of Retail And Restaurant Associate Tia () May 09, 2022 8:42am Advance Directives Yes May 09, 2022 8:42am Living Will Yes May 09 8:42am Power of Retail And Restaurant Associate Yes May 09, 2022 8:42am Advance Directive Response Recorded Date/ Time Advance Directives on File Yes 2022 9:42am Name of Medical Power of Retail And Restaurant Associate Tia () May 09, 2022 9:42am Advance Directives Yes May 09, 2022 9:42am Living Will Yes May 09 9:42am Power of Retail And Restaurant Associate Yes May 09, 2022 9:42am Advance Directive Response Recorded Date/ Time Advance Directives on File Yes 2022 9:42am Name of Medical Power of Retail And Restaurant Associate Tia () May 09, 2022 9:42am Name of Medical Power of Retail And Restaurant Associate tia [facility] [phone] August 02, 2022 12:47am Advance Directives Yes May 09, 2022 9:42am Living Will Yes August 02, 2022 12 :47am Power of Retail And Restaurant Associate Yes August 02, 2022 12:47am Advance Directive Response Recorded Date/ Time Name of Medical Power of Retail And Restaurant Associate tia [facility] [phone] August 02, 2022 12:47am Advance Directives Yes May 09, 2022 9:42am Living Will Yes August 02, 2022 12 :47am Power of Retail And Restaurant Associate Yes August 02, 2022 12:47am Advance Directive Response Recorded Date/ Time Advance Directives Yes May 09, 2022 9:42am Living Will Yes August 02, 2022 12 :47am Power of Retail And Restaurant Associate Yes August 02, 2022 12:47am Advance Directive Response Recorded Date/ Time Name of Medical Power of Retail And Restaurant Associate TIA February 14, 2023 9:43am Advance Directives Yes May 09, 2022 8:42am Living Will Yes February 14 023 9:43am Power of Retail And Restaurant Associate Yes February 14, 2023 9:43am Advance Directive Response Recorded Date/ Time Name of Medical Power of Retail And Restaurant Associate TIA February 14, 2023 10:43am Advance Directives Yes May 09, 2022 9:42am Living Will Yes February 14 023 10:43am Power of Retail And Restaurant Associate Yes February 14, 2023 10:43am Advance Directive Response Recorded Date/ Time Advance Directives Yes May 09, 2022 9:42am Living Will Yes February 14 10:43am Power of Retail And Restaurant Associate Yes February 14, 2023 10:43am Documents on File Type Date Recorded Patient 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 anation DNR (Do Not Resuscitate) 10/03/2023 8:09 PM Date Activated Date Inactivated Comments 10/03/2023 9:41 PM 10/05/2023 5:06 PM Documents on File Type Date Recorded Patient 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 anation DNR (Do Not Resuscitate) 10/03/2023 8:09 PM Date Activated Date Inactivated Comments 10/03/2023 9:41 PM 10/05/2023 5:06 PM Advance Directive Response Recorded Date/ Time Living Will Yes February 14 10:43am Do you have a Healthcare Power of Retail And Restaurant Associate? Yes February 14, 2023 10:43am Living Will Yes November 15 11:41am Do you have a Healthcare Power of Retail And Restaurant Associate? Yes November 16, 2023 11:41am Living Will Yes January 20 4:34am Do you have a Healthcare Power of Retail And Restaurant Associate? Yes January 21, 2024 4:34am Advance Directives Yes April 30, 2024 10:06am Living Will Yes April 12 3:26pm Do you have a Healthcare Power of Retail And Restaurant Associate? Yes April 12, 2024 3:26pm Name of Medical Power of Retail And Restaurant Associate - TIA April 12, 2024 3:26pm Living Will Yes April 24 10:37pm Do you have a Healthcare Power of Retail And Restaurant Associate? Yes Salome 24th, 2025 10:37pm Name of Medical Power of Retail And Restaurant Associate tia April 24, 2024 10:37pm Advance Directive Response Recorded Date/ Time Living Will Yes February 14 10:43am Do you have a Healthcare Power of Retail And Restaurant Associate? Yes February 14, 2023 10:43am Living Will Yes November 15 11:41am Do you have a Healthcare Power of Retail And Restaurant Associate? Yes November 16, 2023 11:41am Living Will Yes January 20 4:34am Do you have a Healthcare Power of Retail And Restaurant Associate? Yes January 21, 2024 4:34am Advance Directives Yes April 30, 2024 10:06am Living Will Yes April 24 10:37pm Do you have a Healthcare Power of Retail And Restaurant Associate? Yes April 24, 2024 10:37pm Name of Medical Power of Retail And Restaurant Associate tia April 24, 2024 10:37pm Advance Directive Response Recorded Date/ Time Living Will Yes February 14 10:43am Do you have a Healthcare Power of Retail And Restaurant Associate? Yes February 14, 2023 10:43am Living Will Yes January 20 4:34am Do you have a Healthcare Power of Retail And Restaurant Associate? Yes January 21, 2024 4:34am Advance Directives Yes April 30, 2024 10:06am Living Will Yes April 24 10:37pm Do you have a Healthcare Power of Retail And Restaurant Associate? Yes April 24, 2024 10:37pm Name of Medical Power of Retail And Restaurant Associate tia April 24, 2024 10:37pm Advance Directive Response Recorded Date/ Time Advance Directives Yes April 30, 2024 10:06am Advance Directive Response Recorded Date/ Time Do you have a Healthcare Power of Retail And Restaurant Associate? Yes September 26, 2024 3:39pm Advance Directives Yes April 30, 2024 10:06am Advance Directive Response Recorded Date/ Time Do you have a Healthcare Power of Retail And Restaurant Associate? Yes September 26, 2024 6:42pm Name of Medical Power of Retail And Restaurant Associate Tia Leso September 26, 2024 6:42pm Advance Directives Yes April 30, 2024 10:06am Advance Directive Response Recorded Date/ Time Living Will Yes January 20 4:34am Do you have a Healthcare Power of Retail And Restaurant Associate? Yes January 21, 2024 4:34am Do you have a Healthcare Power of Retail And Restaurant Associate? Yes September 26, 2024 6:42pm Name of Medical Power of Retail And Restaurant Associate Tia Leos September 26, 2024 6:42pm Advance Directives Yes April 30, 2024 10:06am Advance Directive Response Recorded Date/ Time Living Will Yes January 20 4:34am Do you have a Healthcare Power of Retail And Restaurant Associate? Yes January 21, 2024 4:34am Do you have a Healthcare Power of Retail And Restaurant Associate? Yes September 26, 2024 6:42pm Name of Medical Power of Retail And Restaurant Associate Tia Leos September 26, 2024 6:42pm Do you have a Healthcare Power of Retail And Restaurant Associate? Yes November 26, 2024 9:16am Advance Directives Yes April 30, 2024 10:06am Advance Directive Response Recorded Date/ Time Living Will Yes January 20 4:34am Do you have a Healthcare Power of Retail And Restaurant Associate? Yes January 21, 2024 4:34am Do you have a Healthcare Power of Retail And Restaurant Associate? Yes September 26, 2024 6:42pm Name of Medical Power of Retail And Restaurant Associate Tia Leos September 26, 2024 6:42pm Do you have a Healthcare Power of Retail And Restaurant Associate? Yes November 26, 2024 1:26pm Advance Directives Yes April 30, 2024 10:06am Chief Complaint and Reason for Visit Chief Complaint 4 M FU UNSTABLE ANGINA, SOB UNSTABLE ANGINA, SOB UNSTABLE ANGINA, SOB UNSTABLE ANGINA, SOB UNSTABLE ANGINA, SOB HYPOXIA HYPOXIA HYPOXIA 1 M [address] fu Shortness of breath dizziness Reason [...] HYPOXIA HYPOXIA HYPOXIA 1 M FU [address] fu Shortness of breath dizziness KIANNA; LM 5/6 & 5/ 6 wk FU CP, PROB ACS Reason [...] HYPOXIA HYPOXIA 1 M FU [address] fu Shortness of breath dizziness KIANNA; [...] HYPOXIA HYPOXIA 1 M FU 9 m /[address] [place] [id number] fu Shortness of breath dizziness KIANNA; LM [...] HYPOXIA HYPOXIA HYPOXIA 1 M FU [address] fu Shortness of breath dizziness KIANNA; LM 08/04 & 08/07 6 wk FU CP, PROB ACS CP, PROB ACS SOB S/P [facility] ER DYSPNEA Reason for Visit Diabetes [...] Complaint CAROTID STENOSIS XRAY CAROTID DUPLEX TEST 10/01 [...] Chief Complaint HR 130 today per Collin le Watch E-ORDER LEFT CAROTID BRUIT 3 M [...] per JR May 21, 2024 10:41am [employer] WOMEN'[employer] ACTIVITIES ADVISER TO READ May 28, 2024 7:06am 30 DAY MONITOR May 28, 2024 9:00am unable to tolerate cpap, new oxygen requ irement June 02, 2024 7:43pm B12 inject June 04, 2024 1:20 pm 8-10 WK F/U June 10, 2024 12: 44pm B12 inject July 06, 2024 1:22 pm B12 inject August 06, 2024 2:27pm EKG (WOMEN'S ACTIVITIES ADVISER) August 12, 2024 11:03 am EORDERS August [...] May 05, 2024 12:39pm Interstitial lung disease February 20th, 2025 10:41am Chronic diastolic CHF (congestive heart failure) [...] note per May 21, 2024 10:41am [employer] W[employer] ACTIVITIES ADVISER TO READ May 28, 2024 7:06am 30 DAY MONITOR May 28, 2024 9:00am unable to tolerate cpap, new oxygen requ irement June 02, 2024 7:43pm B12 inject June 04, 2024 1:20 pm 8-10 WK F/U June 10, 2024 12: 44pm B12 inject July 06, 2024 1:22 pm B12 inject August 06, 2024 2:27pm EKG (WOMEN'S ACTIVITIES ADVISER) August 12, 2024 11:03 am EORDERS August 12, 2024 11:27 am Reason for Visit Admit Date CKD (chronic kidney disease) April 9:21am Diabetes April 16, 2024 9 :21am Essential (primary) hypertension April 16, 2024 9:21am Hypothyroidism April 16, 2024 9 :21am Insulin pump titration April 16 9:21am Obesity April 16, 2024 9 :21am Presence of insulin pump April 16 025 9:21am Interstitial lung disease April 22, [...] per JR May 21, 2024 10:41am [employer] W[employer]IVITIES ADVISER TO READ May 28, 2024 7:06am 30 DAY MONITOR May 28, 2024 9:00am unable to tolerate cpap, new oxygen requ irement June 02, 2024 7:43pm B12 inject June 04, 2024 1:20 pm 8-10 WK F/U June 10, 2024 12: 44pm B12 inject July 06, 2024 1:22 pm B12 inject August 06, 2024 2:27pm EKG (WOMEN'S ACTIVITIES ADVISER) August 12, 2024 11:03 am EORDERS August [...] note per May 21, 2024 10:41am [employer] W[employer]IVITIES ADVISER TO READ May 28, 2024 7:06am 30 DAY MONITOR May 28, 2024 9:00am unable to tolerate cpap, new oxygen requ irement June 02, 2024 7:43pm B12 inject June 04, 2024 1:20 pm 8-10 WK F/U June 10, 2024 12: 44pm B12 inject July 06, 2024 1:22 pm B12 inject August 06, 2024 2:27pm EKG (WOMEN'S ACTIVITIES ADVISER) August 12, 2024 11:03 am EORDERS August [...] per JR May 21, 2024 10:41am [employer] W[employer] ACTIVITIES ADVISER TO READ May 28, 2024 7:06am 30 DAY MONITOR May 28, 2024 9:00am unable to tolerate cpap, new oxygen requ irement June 02, 2024 7:43pm B12 inject June 04, 2024 1:20 pm 8-10 WK F/U June 10, 2024 12: 44pm B12 inject July 06, 2024 1:22 pm B12 inject August 06, 2024 2:27pm EKG (WOMEN'S ACTIVITIES ADVISER) August 12, 2024 11:03 am EORDERS August [...] B12 inject August 06, 2024 2:27pm EKG (WOMEN'S ACTIVITIES ADVISER) August 12, 2024 11:03 am EORDERS August [...] 16, 2024 9:59am Acute CVA (cerebrovascular accident) Robe e 2024 5:17pm Hyperlipidemia September 26, 2024 5:17 pm Interstitial lung disease September 26 5:17pm Renal insufficiency September 26, 2024 5:17 pm 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 with hyperglyce garrick September 26, 2024 5:17pm Essential (primary) hypertension September [id number] 5:17pm Hypothyroidism September 26, 2024 5:17 pm Obesity September 26, 2024 5:17 pm KIANNA (obstructive sleep apnea) September 26, 2024 5:17pm Chief Complaint Admit Date unable to tolerate cpap, new oxygen requ irement June 02, 2024 7:43pm B12 inject June 04, 2024 1:20 pm 8-10 WK F/U June 10, 2024 12: 44pm B12 inject July 06, 2024 1:22 pm B12 inject August 06, 2024 2:27pm EKG (WOMEN'S ACTIVITIES ADVISER) August 12, 2024 11:03 am EORDERS August 12, 2024 11:27 am 6 M FU August 17, 2024 11:16 am B12 inject September 15, 2024 12:5 3pm 5 M FU September 16, 2024 9:59 am CVA RULE OUT September 26, 2024 6:27 pm ACUTE CVA, AL OCCLUSION September 26, 2024 8:20pm ACUTE CVA, AL OCCLUSION September 27, 2024 8:01am ACUTE CVA, AL OCCLUSION September 28, 2024 2:42pm Reason for Visit Admit Date Fatigue June [...] 16, 2024 9:59am Acute CVA (cerebrovascular accident) Robe 2024 8:20pm Acute right MCA stroke September 26, 2024 8 :20pm Elevated troponin September 26, 2024 8:20 pm Hyperlipidemia September 26, 2024 8:20 pm Interstitial lung disease September 26 8:20pm Renal insufficiency September 26, 2024 8:20 pm 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 with hyperglyce garrick September 26, 2024 8:20pm Chronic respiratory failure with hypoxia September 26, 2024 8:20pm Essential (primary) hypertension September [id number] 8:20pm Hypothyroidism September 26, 2024 8:20 pm Obesity September 26, 2024 8:20 pm KIANNA (obstructive sleep apnea) September 26, 2024 8:20pm Chief Complaint Admit Date B12 inject July 06, 2024 1:22 pm B12 inject August 06, 2024 2:27pm EKG (WOMEN'S ACTIVITIES ADVISER) August 12, 2024 11:03 am EORDERS August 12, 2024 11:27 am 6 M FU August 17, 2024 11:16 am B12 inject September 15, 2024 12:5 3pm 5 M FU September 16, 2024 9:59 am CVA RULE OUT September 26, 2024 6:27 pm ACUTE CVA, AL OCCLUSION September 26, 2024 8:20pm ACUTE CVA, AL OCCLUSION September 27, 2024 8:01am ACUTE CVA, AL OCCLUSION September 28, 2024 2:42pm STROKE RX HERE October 05, 2024 10:37 am AFTER HOSPITAL VISIT October 12, 2024 10: 46am Reason for Visit Admit Date Fatigue July 06, 2024 1:22 pm Fatigue August 06, 2024 2:27pm Hyperlipidemia August 17, 2024 11:16 am Ischemic cerebrovascular accident (CVA) August 17, 2024 11:16am Polyneuropathy August 17, 2024 11:16 am Fatigue August 17, 2024 11:16 am Fatigue September 15, 2024 12:5 3pm Hyperlipidemia September 16, 2024 9:59 am CKD (chronic kidney disease) September 16, 2024 9:59am Diabetes September 16, 2024 9:59 am Insulin pump titration September 16, 2024 9 :59am Microalbuminuria due to type 2 diabetes mellitus September 16, 2024 9:59am Presence of insulin pump September 16, 2024 9:59am Essential (primary) hypertension September 162024 9:59am Hypothyroidism September 16, 2024 9:59 am Obesity September 16, 2024 9:59 am Acute right MCA stroke September 26, 2024 8 :20pm Hyperlipidemia September 26, 2024 8:20 pm Chronic respiratory failure with hypoxia September 26, 2024 8:20pm Elevated troponin September 26, 2024 8:20 pm Essential (primary) hypertension September [id number] 8:20pm Hypothyroidism September 26, 2024 8:20 pm Interstitial lung disease September 26 8:20pm Obesity September 26, 2024 8:20 pm KIANNA (obstructive sleep apnea) September 26, 2024 8:20pm Renal insufficiency September 26, 2024 8:20 pm 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 with hyperglyce garrick September 26, 2024 8:20pm Acute CVA (cerebrovascular accident) Robe 2024 8:20pm Hyperlipidemia October 12, 2024 10:4 6am Chief Complaint Admit Date B12 inject July 06, 2024 1:22 pm B12 inject August 06, 2024 2:27pm EKG (WOMEN'S ACTIVITIES ADVISER) August 12, 2024 11:03 am EORDERS August 12, 2024 11:27 am 6 M FU August 17, 2024 11:16 am B12 inject September 15, 2024 12:5 3pm 5 M FU September 16, 2024 9:59 am CVA RULE OUT September 26, 2024 6:27 pm ACUTE CVA, AL OCCLUSION September 26, 2024 8:20pm ACUTE CVA, AL OCCLUSION September 27, 2024 8:01am ACUTE CVA, AL OCCLUSION September 28, 2024 2:42pm AFTER HOSPITAL VISIT October 12, 2024 10: 46am STROKE RX HERE October 13, 2024 11:0 0am NANCY SERRANO ANDERSON/& NORMA ORDER October 13, 2024 4:47pm Reason for Visit Admit Date Fatigue July 06, 2024 1:22 pm Fatigue August 06, 2024 2:27pm Hyperlipidemia August 17, 2024 11:16 am Ischemic cerebrovascular accident (CVA) August 17, 2024 11:16am Polyneuropathy August 17, 2024 11:16 am Fatigue August 17, 2024 11:16 am Fatigue September 15, 2024 12:5 3pm Hyperlipidemia September 16, 2024 9:59 am CKD (chronic kidney disease) September 16, 2024 9:59am Diabetes September 16, 2024 9:59 am Insulin pump titration September 16, 2024 9 :59am Microalbuminuria due to type 2 diabetes mellitus September 16, 2024 9:59am Presence of insulin pump September 16, 2024 9:59am Essential (primary) hypertension September 162024 9:59am Hypothyroidism September 16, 2024 9:59 am Obesity September 16, 2024 9:59 am Acute right MCA stroke September 26, 2024 8 :20pm Hyperlipidemia September 26, 2024 8:20 pm Chronic respiratory failure with hypoxia September 26, 2024 8:20pm Elevated troponin September 26, 2024 8:20 pm Essential (primary) hypertension September [id number] 8:20pm Hypothyroidism September 26, 2024 8:20 pm Interstitial lung disease September 26 8:20pm Obesity September 26, 2024 8:20 pm KIANNA (obstructive sleep apnea) September 26, 2024 8:20pm Renal insufficiency September 26, 2024 8:20 pm 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 with hyperglyce garrick September 26, 2024 8:20pm Acute CVA (cerebrovascular accident) Robe 2024 8:20pm Hyperlipidemia October 12, 2024 10:4 6am Ischemic cerebrovascular accident (CVA) October 12, 2024 10:46am Polyneuropathy October 12, 2024 10:4 6am Fatigue October 12, 2024 10:4 6am Chief Complaint Admit Date B12 inject July 06, 2024 1:22 pm B12 inject August 06, 2024 2:27pm EKG (WOMEN'S ACTIVITIES ADVISER) August 12, 2024 11:03 am EORDERS August 12, 2024 11:27 am 6 M FU August 17, 2024 11:16 am B12 inject September 15, 2024 12:5 3pm 5 M FU September 16, 2024 9:59 am CVA RULE OUT September 26, 2024 6:27 pm ACUTE CVA, AL OCCLUSION September 26, 2024 8:20pm ACUTE CVA, AL OCCLUSION September 27, 2024 8:01am ACUTE CVA, AL OCCLUSION September 28, 2024 2:42pm AFTER HOSPITAL VISIT October 12, 2024 10: 46am EORDCELESTE- NANCY SEGURA ANDERSON/& NORMA ORDER October 13, 2024 4:47pm STROKE RX HERE sp- memory loss September 2:30pm 6 M FU October 27, 2024 10:1 6am Reason for Visit Admit Date Fatigue July 06, 2024 1:22 pm Fatigue August 06, 2024 2:27pm Hyperlipidemia August 17, 2024 11:16 am Ischemic cerebrovascular accident (CVA) August 17, 2024 11:16am Polyneuropathy August 17, 2024 11:16 am Fatigue August 17, 2024 11:16 am Fatigue September 15, 2024 12:5 3pm Hyperlipidemia September 16, 2024 9:59 am CKD (chronic kidney disease) September 16, 2024 9:59am Diabetes September 16, 2024 9:59 am Insulin pump titration September 16, 2024 9 :59am Microalbuminuria due to type 2 diabetes mellitus September 16, 2024 9:59am Presence of insulin pump September 16, 2024 9:59am Essential (primary) hypertension September 162024 9:59am Hypothyroidism September 16, 2024 9:59 am Obesity September 16, 2024 9:59 am Acute right MCA stroke September 26, 2024 8 :20pm Hyperlipidemia September 26, 2024 8:20 pm Chronic respiratory failure with hypoxia September 26, 2024 8:20pm Elevated troponin September 26, 2024 8:20 pm Essential (primary) hypertension September [id number] 8:20pm Hypothyroidism September 26, 2024 8:20 pm Interstitial lung disease September 26 8:20pm Obesity September 26, 2024 8:20 pm KIANNA (obstructive sleep apnea) September 26, 2024 8:20pm Renal insufficiency September 26, 2024 8:20 pm 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 with hyperglyce garrick September 26, 2024 8:20pm Acute CVA (cerebrovascular accident) Robe 2024 8:20pm Hyperlipidemia October 12, 2024 10:4 6am Ischemic cerebrovascular accident (CVA) October 12, 2024 10:46am Polyneuropathy October 12, 2024 10:4 6am Fatigue October 12, 2024 10:4 6am Chronic diastolic CHF (congestive heart failure) October 27, 2024 10:16am Dyspnea on exertion October 27, 2024 10:1 6am Ischemic cerebrovascular accident (CVA) October 27, 2024 10:16am Essential (primary) hypertension October 272024 10:16am Interstitial lung disease October 27 10:16am Paroxysmal atrial fibrillation September 10:16am Chief Complaint Admit Date B12 inject July 06, 2024 1:22 pm B12 inject August 06, 2024 2:27pm EKG (WOMEN'S ACTIVITIES ADVISER) August 12, 2024 11:03 am EORDERS August 12, 2024 11:27 am 6 M FU August 17, 2024 11:16 am B12 inject September 15, 2024 12:5 3pm 5 M FU September 16, 2024 9:59 am CVA RULE OUT September 26, 2024 6:27 pm ACUTE CVA, AL OCCLUSION September 26, 2024 8:20pm ACUTE CVA, AL OCCLUSION September 27, 2024 8:01am ACUTE CVA, AL OCCLUSION September 28, 2024 2:42pm AFTER HOSPITAL VISIT October 12, 2024 10: 46am EORDERS- NANCY SEGURA ANDERSON/& NORMA ORDER October 13, 2024 4:47pm 6 M FU October 27, 2024 10:1 6am STROKE RX HERE sp- memory loss October 1:30pm 3 MO - LABS November 03, 2024 12: 45pm 6 MO - LABS November 03, 2024 12: 48pm Reason for Visit Admit Date Fatigue July 06, 2024 1:22 pm Fatigue August 06, 2024 2:27pm Hyperlipidemia August 17, 2024 11:16 am Ischemic cerebrovascular accident (CVA) August 17, 2024 11:16am Polyneuropathy August 17, 2024 11:16 am Fatigue August 17, 2024 11:16 am Fatigue September 15, 2024 12:5 3pm Hyperlipidemia September 16, 2024 9:59 am CKD (chronic kidney disease) September 16, 2024 9:59am Diabetes September 16, 2024 9:59 am Insulin pump titration September 16, 2024 9 :59am Microalbuminuria due to type 2 diabetes mellitus September 16, 2024 9:59am Presence of insulin pump September 16, 2024 9:59am Essential (primary) hypertension September 162024 9:59am Hypothyroidism September 16, 2024 9:59 am Obesity September 16, 2024 9:59 am Acute right MCA stroke September 26, 2024 8 :20pm Hyperlipidemia September 26, 2024 8:20 pm Chronic respiratory failure with hypoxia September 26, 2024 8:20pm Elevated troponin September 26, 2024 8:20 pm Essential (primary) hypertension September 262024 8:20pm Hypothyroidism September 26, 2024 8:20 pm Interstitial lung disease September 26 8:20pm Obesity September 26, 2024 8:20 pm KIANNA (obstructive sleep apnea) September 26, 2024 8:20pm Renal insufficiency September 26, 2024 8:20 pm 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 with hyperglyce garrick September 26, 2024 8:20pm Acute CVA (cerebrovascular accident) Robe 2024 8:20pm Hyperlipidemia October 12, 2024 10:4 6am Ischemic cerebrovascular accident (CVA) October 12, 2024 10:46am Polyneuropathy October 12, 2024 10:4 6am Fatigue October 12, 2024 10:4 6am Chronic diastolic CHF (congestive heart failure) October 27, 2024 10:16am Dyspnea on exertion October 27, 2024 10:1 6am Ischemic cerebrovascular accident (CVA) October 27, 2024 10:16am Essential (primary) hypertension October 272024 10:16am Interstitial lung disease October 27 10:16am Paroxysmal atrial fibrillation September 10:16am Iron deficiency anemia due to chronic bl ood loss November 03, 2024 12:48pm Chief Complaint Admit Date B12 inject August 06, 2024 2:27pm EKG (WOMEN'S ACTIVITIES ADVISER) August 12, 2024 11:03 am EORDERS August 12, 2024 11:27 am 6 M FU August 17, 2024 11:16 am B12 inject September 15, 2024 12:5 3pm 5 M FU September 16, 2024 9:59 am CVA RULE OUT September 26, 2024 6:27 pm ACUTE CVA, AL OCCLUSION September 26, 2024 8:20pm ACUTE CVA, AL OCCLUSION September 27, 2024 8:01am ACUTE CVA, AL OCCLUSION September 28, 2024 2:42pm AFTER HOSPITAL VISIT October 12, 2024 10: 46am EORDERS- NANCY SEGURA, MARI/& NORMA ORDER October 13, 2024 4:47pm 6 M FU October 27, 2024 10:1 6am 3 MO - LABS November 03, 2024 12: 45pm 6 MO - LABS November 03, 2024 12: 48pm STROKE RX HERE sp- memory loss November 092024 1:30pm B12 INJECTION November 12, 2024 10 :47am Reason for Visit Admit Date Fatigue August 06, 2024 2:27pm Hyperlipidemia August 17, 2024 11:16 am Ischemic cerebrovascular accident (CVA) August 17, 2024 11:16am Polyneuropathy August 17, 2024 11:16 am Fatigue August 17, 2024 11:16 am Fatigue September 15, 2024 12:5 3pm Hyperlipidemia September 16, 2024 9:59 am CKD (chronic kidney disease) September 16, 2024 9:59am Diabetes September 16, 2024 9:59 am Insulin pump titration September 16, 2024 9 :59am Microalbuminuria due to type 2 diabetes mellitus September 16, 2024 9:59am Presence of insulin pump September 16, 2024 9:59am Essential (primary) hypertension September 162024 9:59am Hypothyroidism September 16, 2024 9:59 am Obesity September 16, 2024 9:59 am Acute right MCA stroke September 26, 2024 8 :20pm Hyperlipidemia September 26, 2024 8:20 pm Chronic respiratory failure with hypoxia September 26, 2024 8:20pm Elevated troponin September 26, 2024 8:20 pm Essential (primary) hypertension September 262024 8:20pm Hypothyroidism September 26, 2024 8:20 pm Interstitial lung disease September 26 8:20pm Obesity September 26, 2024 8:20 pm KIANNA (obstructive sleep apnea) September 26, 2024 8:20pm Renal insufficiency September 26, 2024 8:20 pm 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 with hyperglyce garrick September 26, 2024 8:20pm Acute CVA (cerebrovascular accident) Robe 2024 8:20pm Hyperlipidemia October 12, 2024 10:4 6am Ischemic cerebrovascular accident (CVA) October 12, 2024 10:46am Polyneuropathy October 12, 2024 10:4 6am Fatigue October 12, 2024 10:4 6am Chronic diastolic CHF (congestive heart failure) October 27, 2024 10:16am Dyspnea on exertion October 27, 2024 10:1 6am Ischemic cerebrovascular accident (CVA) October 27, 2024 10:16am Essential (primary) hypertension October 272024 10:16am Interstitial lung disease October 27 10:16am Paroxysmal atrial fibrillation September 10:16am Iron deficiency anemia due to chronic bl ood loss November 03, 2024 12:48pm Chief Complaint Admit Date B12 inject August 06, 2024 2:27pm EKG (WOMEN'S ACTIVITIES ADVISER) August 12, 2024 11:03 am EORDERS August 12, 2024 11:27 am 6 M FU August 17, 2024 11:16 am B12 inject September 15, 2024 12:5 3pm 5 M FU September 16, 2024 9:59 am CVA RULE OUT September 26, 2024 6:27 pm ACUTE CVA, AL OCCLUSION September 26, 2024 8:20pm ACUTE CVA, AL OCCLUSION September 27, 2024 8:01am ACUTE CVA, AL OCCLUSION September 28, 2024 2:42pm AFTER HOSPITAL VISIT October 12, 2024 10: 46am NANCY SERRANO, MARI/& NORMA ORDER October 13, 2024 4:47pm 6 M FU October 27, 2024 10:1 6am 3 MO - LABS November 03, 2024 12: 45pm 6 MO - LABS November 03, 2024 12: 48pm B12 INJECTION November 12, 2024 10 :47am STROKE RX HERE sp- memory loss November 192024 2:00pm 3 M FU November 25, 2024 12 :33pm Reason for Visit Admit Date Fatigue August 06, 2024 2:27pm Hyperlipidemia August 17, 2024 11:16 am Ischemic cerebrovascular accident (CVA) August 17, 2024 11:16am Polyneuropathy August 17, 2024 11:16 am Fatigue August 17, 2024 11:16 am Fatigue September 15, 2024 12:5 3pm Hyperlipidemia September 16, 2024 9:59 am CKD (chronic kidney disease) September 16, 2024 9:59am Diabetes September 16, 2024 9:59 am Insulin pump titration September 16, 2024 9 :59am Microalbuminuria due to type 2 diabetes mellitus September 16, 2024 9:59am Presence of insulin pump September 16, 2024 9:59am Essential (primary) hypertension September 162024 9:59am Hypothyroidism September 16, 2024 9:59 am Obesity September 16, 2024 9:59 am Acute right MCA stroke September 26, 2024 8 :20pm Hyperlipidemia September 26, 2024 8:20 pm Chronic respiratory failure with hypoxia September 26, 2024 8:20pm Elevated troponin September 26, 2024 8:20 pm Essential (primary) hypertension September 262024 8:20pm Hypothyroidism September 26, 2024 8:20 pm Interstitial lung disease September 26 8:20pm Obesity September 26, 2024 8:20 pm KIANNA (obstructive sleep apnea) September 26, 2024 8:20pm Renal insufficiency September 26, 2024 8:20 pm 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 with hyperglyce garrick September 26, 2024 8:20pm Acute CVA (cerebrovascular accident) Robe 2024 8:20pm Hyperlipidemia October 12, 2024 10:4 6am Ischemic cerebrovascular accident (CVA) October 12, 2024 10:46am Polyneuropathy October 12, 2024 10:4 6am Fatigue October 12, 2024 10:4 6am Chronic diastolic CHF (congestive heart failure) October 27, 2024 10:16am Dyspnea on exertion October 27, 2024 10:1 6am Ischemic cerebrovascular accident (CVA) October 27, 2024 10:16am Essential (primary) hypertension October 272024 10:16am Interstitial lung disease October 27 10:16am Paroxysmal atrial fibrillation September 10:16am Iron deficiency anemia due to chronic bl ood loss November 03, 2024 12:48pm Fatigue November 12, 2024 10 :47am Chronic diastolic CHF (congestive heart failure) November 25, 2024 12:33pm Rheumatoid factor positive November 25, 2024 12:33pm Chief Complaint Admit Date B12 inject August 06, 2024 2:27pm EKG (WOMEN'S ACTIVITIES ADVISER) August 12, 2024 11:03 am EORDERS August 12, 2024 11:27 am 6 M FU August 17, 2024 11:16 am B12 inject September 15, 2024 12:5 3pm 5 M FU September 16, 2024 9:59 am CVA RULE OUT September 26, 2024 6:27 pm ACUTE CVA, AL OCCLUSION September 26, 2024 8:20pm ACUTE CVA, AL OCCLUSION September 27, 2024 8:01am ACUTE CVA, AL OCCLUSION September 28, 2024 2:42pm AFTER HOSPITAL VISIT October 12, 2024 10: 46am EORDERS- NANCY SEGURA, MARI/& NORMA ORDER October 13, 2024 4:47pm 6 M FU October 27, 2024 10:1 6am 3 MO - LABS November 03, 2024 12: 45pm 6 MO - LABS November 03, 2024 12: 48pm B12 INJECTION November 12, 2024 10 :47am STROKE RX HERE sp- memory loss November 192024 2:00pm 3 M FU November 25, 2024 12 :33pm SEPSIS November 26, 2024 11 :54am weakness November 26, 2024 12 :09pm Reason for Visit Admit Date Fatigue August 06, 2024 2:27pm Hyperlipidemia August 17, 2024 11:16 am Ischemic cerebrovascular accident (CVA) August 17, 2024 11:16am Polyneuropathy August 17, 2024 11:16 am Fatigue August 17, 2024 11:16 am Fatigue September 15, 2024 12:5 3pm Hyperlipidemia September 16, 2024 9:59 am CKD (chronic kidney disease) September 16, 2024 9:59am Diabetes September 16, 2024 9:59 am Insulin pump titration September 16, 2024 9 :59am Microalbuminuria due to type 2 diabetes mellitus September 16, 2024 9:59am Presence of insulin pump September 16, 2024 9:59am Essential (primary) hypertension September 162024 9:59am Hypothyroidism September 16, 2024 9:59 am Obesity September 16, 2024 9:59 am Acute right MCA stroke September 26, 2024 8 :20pm Hyperlipidemia September 26, 2024 8:20 pm Chronic respiratory failure with hypoxia September 26, 2024 8:20pm Elevated troponin September 26, 2024 8:20 pm Essential (primary) hypertension September 262024 8:20pm Hypothyroidism September 26, 2024 8:20 pm Interstitial lung disease September 26 8:20pm Obesity September 26, 2024 8:20 pm KIANNA (obstructive sleep apnea) September 26, 2024 8:20pm Renal insufficiency September 26, 2024 8:20 pm 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 with hyperglyce garrick September 26, 2024 8:20pm Acute CVA (cerebrovascular accident) Orbe 2024 8:20pm Hyperlipidemia October 12, 2024 10:4 6am Ischemic cerebrovascular accident (CVA) October 12, 2024 10:46am Polyneuropathy October 12, 2024 10:4 6am Fatigue October 12, 2024 10:4 6am Chronic diastolic CHF (congestive heart failure) October 27, 2024 10:16am Dyspnea on exertion October 27, 2024 10:1 6am Ischemic cerebrovascular accident (CVA) October 27, 2024 10:16am Essential (primary) hypertension October 272024 10:16am Interstitial lung disease October 27 10:16am Paroxysmal atrial fibrillation September 10:16am Iron deficiency anemia due to chronic bl ood loss November 03, 2024 12:48pm Fatigue November 12, 2024 10 :47am Chronic diastolic CHF (congestive heart failure) November 25, 2024 12:33pm Rheumatoid factor positive November 25, 2024 12:33pm Chronic respiratory failure with hypoxia November 25, 2024 12:33pm Interstitial lung disease November 25, 2 025 12:33pm Obesity November 25, 2024 12 :33pm KIANNA (obstructive sleep apnea) October 12:33pm Cellulitis November 26, 2024 11 :54am Debility November 26, 2024 11 :54am Sepsis November 26, 2024 11 :54am Chief Complaint Admit Date B12 inject August 06, 2024 2:27pm EKG (WOMEN'S ACTIVITIES ADVISER) August 12, 2024 11:03 am EORDERS August 12, 2024 11:27 am 6 M FU August 17, 2024 11:16 am B12 inject September 15, 2024 12:5 3pm 5 M FU September 16, 2024 9:59 am CVA RULE OUT September 26, 2024 6:27 pm ACUTE CVA, AL OCCLUSION September 26, 2024 8:20pm ACUTE CVA, AL OCCLUSION September 27, 2024 8:01am ACUTE CVA, AL OCCLUSION September 28, 2024 2:42pm AFTER HOSPITAL VISIT October 12, 2024 10: 46am EOSISSY- NANCY SEGURA, MARI/& NORMA ORDER October 13, 2024 4:47pm 6 M FU October 27, 2024 10:1 6am 3 MO - LABS November 03, 2024 12: 45pm 6 MO - LABS November 03, 2024 12: 48pm B12 INJECTION November 12, 2024 10 :47am STROKE RX HERE sp- memory loss November 192024 2:00pm 3 M FU November 25, 2024 12 :33pm SEPSIS November 26, 2024 11 :54am weakness November 26, 2024 12 :09pm SEPSIS November 27, 2024 8: 23am SEPSIS November 28, 2024 9: 43am Chief Complaint Admit Date 6 M FU August 17, 2024 11:16 am B12 inject September 15, 2024 12:5 3pm 5 M FU September 16, 2024 9:59 am CVA RULE OUT September 26, 2024 6:27 pm ACUTE CVA, AL OCCLUSION September 26, 2024 8:20pm ACUTE CVA, AL OCCLUSION September 27, 2024 8:01am ACUTE CVA, AL OCCLUSION September 28, 2024 2:42pm AFTER HOSPITAL VISIT October 12, 2024 10: 46am EORDERS- NANCY SEGURA, MARI/& NORMA ORDER October 13, 2024 4:47pm 6 M FU October 27, 2024 10:1 6am 6 MO - LABS November 03, 2024 12: 48pm B12 INJECTION November 12, 2024 10 :47am STROKE RX HERE sp- memory loss November 192024 2:00pm 3 M FU November 25, 2024 12 :33pm SEPSIS November 26, 2024 11 :54am weakness November 26, 2024 12 :09pm SEPSIS November 27, 2024 8: 23am SEPSIS November 28, 2024 9: 43am 3 MO - LABS December 09, 2024 9:00am VENOFER 100MG December 10, 2024 1:18pm Reason for Visit Admit Date Ischemic cerebrovascular accident (CVA) August 17, 2024 11:16am Hyperlipidemia August 17, 2024 11:16 am Polyneuropathy August 17, 2024 11:16 am Fatigue August 17, 2024 11:16 am Fatigue September 15, 2024 12:5 3pm CKD (chronic kidney disease) September 16, 2024 9:59am Diabetes September 16, 2024 9:59 am Essential (primary) hypertension September 162024 9:59am Hyperlipidemia September 16, 2024 9:59 am Hypothyroidism September 16, 2024 9:59 am Microalbuminuria due to type 2 diabetes mellitus September 16, 2024 9:59am Obesity September 16, 2024 9:59 am Presence of insulin pump September 16, 2024 9:59am Insulin pump titration September 16, 2024 9 :59am Chronic respiratory failure with hypoxia September 26, 2024 8:20pm Elevated troponin September 26, 2024 8:20 pm Essential (primary) hypertension September 262024 8:20pm Hyperlipidemia September 26, 2024 8:20 pm Hypothyroidism September 26, 2024 8:20 pm Interstitial lung disease September 26 8:20pm Obesity September 26, 2024 8:20 pm KIANNA (obstructive sleep apnea) September 26, 2024 8:20pm Renal insufficiency September 26, 2024 8:20 pm 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 with hyperglyce garrick September 26, 2024 8:20pm Acute CVA (cerebrovascular accident) Robe e 2024 8:20pm Acute right MCA stroke September 26, 2024 8 :20pm Ischemic cerebrovascular accident (CVA) October 12, 2024 10:46am Hyperlipidemia October 12, 2024 10:4 6am Polyneuropathy October 12, 2024 10:4 6am Fatigue October 12, 2024 10:4 6am Dyspnea on exertion October 27, 2024 10:1 6am Ischemic cerebrovascular accident (CVA) October 27, 2024 10:16am Chronic diastolic CHF (congestive heart failure) October 27, 2024 10:16am Essential (primary) hypertension October 272024 10:16am Interstitial lung disease October 27 10:16am Paroxysmal atrial fibrillation September 10:16am Iron deficiency anemia due to chronic bl ood loss November 03, 2024 12:48pm Fatigue November 12, 2024 10 :47am Chronic diastolic CHF (congestive heart failure) November 25, 2024 12:33pm Chronic respiratory failure with hypoxia November 25, 2024 12:33pm Interstitial lung disease November 25, 2 025 12:33pm Obesity November 25, 2024 12 :33pm KIANNA (obstructive sleep apnea) October 12:33pm Rheumatoid factor positive November 25, 2024 12:33pm Cellulitis November 26, 2024 11 :54am Debility November 26, 2024 11 :54am Sepsis November 26, 2024 11 :54am Reason for Referral Specialty Diagnoses / Procedures Referred By Luke t Referred To Contact Radiology Diagnoses Bilateral carotid artery stenosis Ischemic cerebrovascular accident (CVA) (HCC) Procedures CTA head neck angio w and wo IV contrast Oziel Culp MD [address] [place] [address] Referral ID Status Reason Start Date Expiration Date V isits Requested Visits Authorized [id number] Pending Review 01/06/2024 01/05/2025 1 1 Specialty Diagnoses / Procedures Referred By Contac t Referred To Contact Diagnoses Cerebrovascular accident (CVA), unspecified mechanism (HCC) Harmeet Stallworth MD [address] [place] [address] Referral ID Status Reason Start Date Expiration Date Visits Re quested Visits Authorized [id number] Closed 1 1 Additional Source Comments (unrecognized sect ion and content) No Status Records FoundNo Status Records FoundNo Status Records FoundNo Status Records FoundNo Status Records FoundNo Status Records FoundNo Status Records FoundNo Status Records FoundNo Status Records Found INFORMATION SOURCE (unrecogn ized section and content) DATE CREATED AUTHOR 09/08/2018 [facility] ([place]) DATE CREATED AUTHOR AUTHOR'S ORGANIZ ATION 10/18/2023 [facility]) DATE CREATED AUTHOR AUTHOR'S ORGANIZ ATION 07/25/2024 [facility] DATE CREATED AUTHOR AUTHOR'S ORGANIZ ATION 07/26/2024 [facility] DATE CREATED AUTHOR AUTHOR'S ORGANIZ ATION 08/08/2024 [facility] DATE CREATED AUTHOR AUTHOR'S ORGANIZ ATION 11/25/2024 [facility] DATE CREATED AUTHOR AUTHOR'S ORGANIZ ATION 11/28/2024 [facility] DATE CREATED AUTHOR AUTHOR'S ORGANIZ ATION 12/14/2024 [facility] DATE CREATED AUTHOR AUTHOR'S ORGANIZ ATION 12/19/2024 [facility] Source Comments (unrecognize d section and content) In the event this informatio n is protected by the Federal Confidentiality of Alcohol and Drug Abuse Patient Records regulations: The Federal rules restrict any use of the information to criminally investigate or prosecute any alcohol or drug abuse patient.[facility] Goals (unrecognized section and content) Goals may [...] Primary Care Provider, Referrin g Provider Active Jessica Gerardo NP-C Attending Provider Active Team Status: Inactive Member Role Status Dates Dr. Radha Khan MD Primary Care Provider, Referrin g Provider Active Oren Sky THERAPEUTIC STRATEGY LEAD, THERAPEUTIC STRATEGY LEAD-C Attending Provider Active Team Status: Active Member [...] Provider, Other Pr ovider Active Oren Sky THERAPEUTIC STRATEGY LEAD, THERAPEUTIC STRATEGY LEAD-C Attending Provider, Referring Pro vider Active Team [...] Provider, Referrin g Provider Active Fior Vallejo NP THERAPEUTIC STRATEGY LEAD-C Attending Provider Active Team Status: Inactive Member [...] Lydia Segura PA, PA Active Oren Sky THERAPEUTIC STRATEGY LEAD, THERAPEUTIC STRATEGY LEAD-C Attending Provider Active Team Status: Active Member [...] MD Attending Provider, Other Provi erika Active TUNDE Chang-Surinder Referring Provider, Other Pro vider Active Team Status: Inactive Member Role Status Dates Dr. Radha Khan MD Primary Care Provider Active Dr. Karol Rushing MD Other Provider Active TUNDE Chang-Surinder Attending Provider, Referring Provider Active Team Status: Inactive Member Role Status Dates Dr. Radha Khan MD Primary Care Provider Active Oren Sky THERAPEUTIC STRATEGY LEAD, THERAPEUTIC STRATEGY LEAD-C Attending Provider, Referring Pro vider Active Team Status: Inactive Member Role Status Dates Dr. Radha Khan MD Primary Care Provider, Referrin g Provider Active Dr. Ochoa Dobbs MD Attending Provider Active Air Pollution Inspector Relationship Specialty Start Date End Date Radha Khan [address] [place] [address] PCP - General Family Medicine 10/03/23 Air Pollution Inspector Relationship Specialty Start Date End Date Bill Radha Mcmahon [address] [place] [address] PCP - General Family Medicine 10/03/23 Air Pollution Inspector Relationship Specialty Start Date End Date Radha Khan [address] [place] [address] PCP - General Family Medicine 10/03/23 Air Pollution Inspector Relationship Specialty Start Date End Date Radha Khan [address] [place] [address] PCP - General Family Medicine 10/03/23 Air Pollution Inspector Relationship Specialty Start Date End Date Bill Radha Mcmahon [address] [place] [address] PCP - General Family Medicine 10/03/23 Air Pollution Inspector Relationship Specialty Start Date End Date Samanthapalmajonny Radha Mcmahon [address] [place] [address] PCP - General Family Medicine 10/03/23 Air Pollution Inspector Relationship Specialty Start Date End Date SamanthaRadha cagle [address] [place] [address] PCP - General Family Medicine 10/03/23 Air Pollution Inspector Relationship Specialty Start Date End Date Radha Khan [address] [place] [address] PCP - General Family Medicine 10/03/23 Suzy Jauregui MD [address] [place], [place] [id number] Consulting Physician Vascular Surgery 04/24/24 Air Pollution Inspector Relationship Specialty Start Date End Date Radha Khan [address] [place] [address] PCP - General Family Medicine 10/03/23 Suzy Jauregui MD [address] [place] [address] Consulting Physician Vascular Surgery 04/24/24 Air Pollution Inspector Relationship Specialty Start Date End Date Radha Khan [address] [place] [address] PCP - General Family Medicine 10/03/23 Suzy Jauregui MD [address] [place] [address] Consulting Physician Vascular Surgery 04/24/24 Air Pollution Inspector Relationship Specialty Start Date End Date Radha Khan [address] [place] [address] PCP - General Family Medicine 10/03/23 Suzy Jauregui MD [address] [place] [address] Consulting Physician Vascular Surgery 04/24/24 Air Pollution Inspector Relationship Specialty Start Date End Date Radha Khan MD [address] [place], [place] [address] PCP - General Family Medicine 07/24/24 Air Pollution Inspector Relationship Specialty Start Date End Date Radha Khan MD [address] [place] [address] PCP - General Family Medicine 07/24/24 Air Pollution Inspector Relationship Specialty Start Date End Date Radha Khan MD [address] [place], [place] [address] PCP - General Family Medicine 07/24/24 Team Status: Active Member Role Status Brandt Winter MD Primary Care Provider Active [...] 12, 2024 End: April 15, 2024 Dr. Eudin Swain MD Other Provider Active Sta rt: [...] Active S tart: April 15, 2024 Dr. aCtalina Dolan MD Other Provider Active Start: April [...] April 16, 2024 End: April 16, 2024 JING PhanC Attending Provider Active Start: April 16, 2024 End: April 16, 2024 Team Status: Inactive Member Role Status Dates Dr. Radha Khan MD Primary Care Provider Active Start: April 22, 2024 End: April 22, 2024 Dr. Radha Khan MD Referring Provider Active Start: April 22, 2024 End: April 22, 2024 PITO Peña Attending Provider Active Start: April 22, 2024 [...] Edmund Dey MD Other Provider Active Start: [facility] 2024 End: April 25, 2024 Dr. Kristin [...] Status: Inactive Member Role Status Dates Dr. Rdaha Khan MD Primary Care Provider Active Start: [...] Active S tart: May 28, 2024 Lydia Segura PA, PA [...] 2024 End: June 04, 2024 Dr. Toni Vnan MD Attending Provider Active Start: June 04, [...] 2024 Team Status: Inactive Member Role Status Nir Winter MD Primary Care Provider Active St [...] August 17, 2024 End: August 17, 2024 Air Pollution Inspector Relationship Specialty Start Date End Date Radha Khan MD [address] [facility] [address] [place] [address] PCP - General Family Medicine 07/24/24 Team [...] September 16, 2024 End: September 16, 2024 Air Pollution Inspector Relationship Specialty Start Date End Date Radha Khan MD [address] [place], [place] [id number] PCP - General Family Medicine 07/24/24 Air Pollution Inspector Relationship Specialty Start Date End Date Radha Khan MD [address] [place] [address] PCP - General Family Medicine 07/24/24 Team [...] Attending Provider Active Start: September 26, 2024 Team Status: Active Member Role/Relationship Status [...] Attending Provider Active Start: September 26, 2024 Dr. Xioa Berrios MD Other Provider Active Star t: September 26, 2024 Edmund Dey MD Other Provider Active Start: 2024 Dr. Kristin Body MD Other Provider Active Start: September 26, 2024 Amy Dumont MD Other Provider Active Start : September 26, 2024 Dr. Bethany Velasco DO Other Provider Active St art: September 26, 2024 Dr. Lucy Granado MD Other Provider Active Start: September 26, 2024 Dr. Giancarlo Lomeli MD Other Provider Active Sta rt: September 26, 2024 Dr. Patrizia Burk MD Other Provider Active Start : September 26, 2024 Dr. Alden Lazaro MD Other Provider Active Start: September 26, 2024 Dr. Julius Flores MD Other Provider Active Start : September 26, 2024 Dr. Fred Talbert MD Other Provider Active Sta rt: September 26, 2024 Jennifer Toledo MD Other Provider Active Start : September 26, 2024 Dr. Joao Arredondo MD Other Provider Active St art: September 26, 2024 Dr. Palak Garvin MD Other Provider Active Start : September 26, 2024 Dr. Michelle Lyons MD Other Provider Active Sta rt: September 26, 2024 Dr. Indigo Coates MD Other Provider Active Start: September 26, 2024 Dr. Lavelle Chakraborty MD Other Provider Active St art: September 26, 2024 Dr. Rogers Heart MD Other Provider Active Star t: September 26, 2024 Dr. Abrahan Bejarano MD Other Provider Active St art: September 26, 2024 Dr. Mindy Benítez MD Other Provider Active Start: September 26, 2024 Ryan Riley MD Other Provider Active Start: September 26, 2024 Team Status: Inactive Member Role/Relationship Status Dates Brandt Winter MD Primary Care Provider Active St art: September 26, 2024 End: September 28, 2024 Dr. Angel Avitia MD Referring Provider Active Sta rt: September 26, 2024 End: September 28, 2024 Dr. Angel Avitia MD Emergency Provider Active Sta rt: September 26, 2024 End: September 28, 2024 Dr. Xiao Berrios MD Admit Provider Active Star t: September 26, 2024 End: September 28, 2024 Dr. Xiao Berrios MD Other Provider Active Star t: September 26, 2024 End: September 28, 2024 Edmund Dey MD Other Provider Active Start: 2024 End: September 28, 2024 Dr. Kristin Boyd MD Other Provider Active Start: September 26, 2024 End: September 28, 2024 Amy Dumont MD Other Provider Active Start : September 26, 2024 End: September 28, 2024 Dr. Bethany Velasco DO Other Provider Active St art: September 26, 2024 End: September 28, 2024 Dr. Lucy Granado MD Other Provider Active Start: September 26, 2024 End: September 28, 2024 Dr. Giancarlo Lomeli MD Other Provider Active Sta rt: September 26, 2024 End: September 28, 2024 Dr. Patrizia Burk MD Other Provider Active Start : September 26, 2024 End: September 28, 2024 Dr. Alden Lazaro MD Other Provider Active Start: September 26, 2024 End: September 28, 2024 Dr. Julius Flores MD Other Provider Active Start : September 26, 2024 End: September 28, 2024 Dr. Fred Talbert MD Other Provider Active Sta rt: September 26, 2024 End: September 28, 2024 Jennifer Toledo MD Other Provider Active Start : September 26, 2024 End: September 28, 2024 Dr. Joao Arredondo MD Other Provider Active St art: September 26, 2024 End: September 28, 2024 Dr. Palak Garvin MD Other Provider Active Start : September 26, 2024 End: September 28, 2024 Dr. Michelle Lyons MD Other Provider Active Sta rt: September 26, 2024 End: September 28, 2024 Dr. Indigo Coates MD Other Provider Active Start: September 26, 2024 End: September 28, 2024 Dr. Lavelle Chakraborty MD Other Provider Active St art: September 26, 2024 End: September 28, 2024 Dr. Rogers Heart MD Other Provider Active Star t: September 26, 2024 End: September 28, 2024 Dr. Abrahan Bejarano MD Other Provider Active St art: September 26, 2024 End: September 28, 2024 Dr. Mindy Benítez MD Other Provider Active Start: September 26, 2024 End: September 28, 2024 Ryan Riley MD Other Provider Active Start: September 26, 2024 End: September 28, 2024 Dr. Karina Benítez DO Attending Provider Active S tart: September 26, 2024 End: September 28, 2024 Team Status: Active Member Role/Relationship Status Dates Brandt Winter MD Primary Care Provider Active St art: September 27, 2024 Dr. Angel Avitia MD Referring Provider Active Sta rt: September 27, 2024 Dr. Angel Avitia MD Emergency Provider Active Sta rt: September 27, 2024 Dr. Xiao Berrios MD Admit Provider Active Star t: September 27, 2024 Dr. Xiao Berrios MD Other Provider Active Star t: September 27, 2024 Edmund Dey MD Other Provider Active Start: 2024 Dr. Kristin Boyd MD Other Provider Active Start: September 27, 2024 Amy Dumont MD Other Provider Active Start : September 27, 2024 Dr. Bethany Velasco DO Other Provider Active St art: September 27, 2024 Dr. Lucy Granado MD Other Provider Active Start: September 27, 2024 Dr. Giancarlo Lomeli MD Other Provider Active Sta rt: September 27, 2024 Dr. Patrizia Burk MD Other Provider Active Start : September 27, 2024 Dr. Alden Lazaro MD Other Provider Active Start: September 27, 2024 Dr. Julius Flores MD Other Provider Active Start : September 27, 2024 Dr. Fred Talbert MD Other Provider Active Sta rt: September 27, 2024 Jennifer Toledo MD Other Provider Active Start : September 27, 2024 Dr. Joao Arredondo MD Other Provider Active St art: September 27, 2024 Dr. Palak Garvin MD Other Provider Active Start : September 27, 2024 Dr. Michelle Lyons MD Other Provider Active Sta rt: September 27, 2024 Dr. Indigo Coates MD Other Provider Active Start: September 27, 2024 Dr. Lavelle Chakraborty MD Other Provider Active St art: September 27, 2024 Dr. Rogers Heart MD Other Provider Active Star t: September 27, 2024 Dr. Abrahan Bejarano MD Other Provider Active St art: September 27, 2024 Dr. Mindy Benítez MD Other Provider Active Start: September 27, 2024 Ryan Riley MD Other Provider Active Start: September 27, 2024 Dr. Karina Benítez DO Attending Provider Active S tart: September 27, 2024 Dr. Karina Benítez DO Other Provider Active Start : September 27, 2024 Team Status: Active Member Role/Relationship Status Dates Brandt Winter MD Primary Care Provider Active St art: September 28, 2024 Dr. Sarah Parada MD Attending Provider Active Start: September 28, 2024 Team Status: Active Member Role/Relationship Status Dates Brandt Winter MD Primary Care Provider Active St art: September 28, 2024 Dr. Angel Avitia MD Referring Provider Active Sta rt: September 28, 2024 Dr. Angel Avitia MD Emergency Provider Active Sta rt: September 28, 2024 Dr. Xiao Berrios MD Admit Provider Active Star t: September 28, 2024 Dr. Xiao Berrios MD Other Provider Active Star t: September 28, 2024 Edmund Dey MD Other Provider Active Start: 2024 Dr. Kristin Boyd MD Other Provider Active Start: September 28, 2024 Amy Dumont MD Other Provider Active Start : September 28, 2024 Dr. Bethany Velasco DO Other Provider Active St art: September 28, 2024 Dr. Lucy Granado MD Other Provider Active Start: September 28, 2024 Dr. Giancarlo Lomeli MD Other Provider Active Sta rt: September 28, 2024 Dr. Patrizia Burk MD Other Provider Active Start : September 28, 2024 Dr. Alden Lazaro MD Other Provider Active Start: September 28, 2024 Dr. Julius Flores MD Other Provider Active Start : September 28, 2024 Dr. Fred Talbert MD Other Provider Active Sta rt: September 28, 2024 Jennifer Toledo MD Other Provider Active Start : September 28, 2024 Dr. Joao Arredondo MD Other Provider Active St art: September 28, 2024 Dr. Palak Garvin MD Other Provider Active Start : September 28, 2024 Dr. Michelle Lyons MD Other Provider Active Sta rt: September 28, 2024 Dr. Indigo Coates MD Other Provider Active Start: September 28, 2024 Dr. Lavelle Chakraborty MD Other Provider Active St art: September 28, 2024 Dr. Rogers Heart MD Other Provider Active Star t: September 28, 2024 Dr. Abrahan Bejarano MD Other Provider Active St art: September 28, 2024 Dr. Mindy Benítez MD Other Provider Active Start: September 28, 2024 Ryan Riley MD Other Provider Active Start: September 28, 2024 Dr. Karina Benítez DO Attending Provider Active S tart: September 28, 2024 Dr. Karina Benítez DO Other Provider Active Start : September 28, 2024 Team Status: Inactive Member Role/Relationship Status [...] 17, 2024 End: August 17, 2024 Brandt Winetr MD Primary Care Provider Active St art: [...] Attending Provider Active Start: September 26, 2024 Dr. Xiao Berrios MD Other Provider Active Star t: September 26, 2024 Edmund Dey MD Other Provider Active Start: 2024 Dr. Kristin Boyd MD Other Provider Active Start: September 26, 2024 Amy Dumont MD Other Provider Active Start : September 26, 2024 Dr. Bethany Velasco DO Other Provider Active St art: September 26, 2024 Dr. Lucy Granado MD Other Provider Active Start: September 26, 2024 Dr. Giancarlo Lomeli MD Other Provider Active Sta rt: September 26, 2024 Dr. Patrizia Burk MD Other Provider Active Start : September 26, 2024 Dr. Alden Lazaro MD Other Provider Active Start: September 26, 2024 Dr. Julius Flores MD Other Provider Active Start : September 26, 2024 Dr. Fred Talbert MD Other Provider Active Sta rt: September 26, 2024 Jennifer Toledo MD Other Provider Active Start : September 26, 2024 Dr. Joao Arredondo MD Other Provider Active St art: September 26, 2024 Dr. Palak Garvin MD Other Provider Active Start : September 26, 2024 Dr. Michelle Lyons MD Other Provider Active Sta rt: September 26, 2024 Dr. Indigo Coates MD Other Provider Active Start: September 26, 2024 Dr. Lavelle Chakraborty MD Other Provider Active St art: September 26, 2024 Dr. Rogers Heart MD Other Provider Active Star t: September 26, 2024 Dr. Abrahan Bejarano MD Other Provider Active St art: September 26, 2024 Dr. Mindy Benítez MD Other Provider Active Start: September 26, 2024 Ryan Riley MD Other Provider Active Start: September 26, 2024 Team Status: Inactive Member Role/Relationship Status Dates Brandt Winter MD Primary Care Provider Active St art: September 26, 2024 End: September 28, 2024 Dr. Angel Avitia MD Referring Provider Active Sta rt: September 26, 2024 End: September 28, 2024 Dr. Angel Avitia MD Emergency Provider Active Sta rt: September 26, 2024 End: September 28, 2024 Dr. Xiao Berrios MD Admit Provider Active Star t: September 26, 2024 End: September 28, 2024 Dr. Xiao Berrios MD Other Provider Active Star t: September 26, 2024 End: September 28, 2024 Edmund Dey MD Other Provider Active Start: 2024 End: September 28, 2024 Dr. Kristin Boyd MD Other Provider Active Start: September 26, 2024 End: September 28, 2024 Amy Dumont MD Other Provider Active Start : September 26, 2024 End: September 28, 2024 Dr. Bethany Velasco DO Other Provider Active St art: September 26, 2024 End: September 28, 2024 Dr. Lucy Granado MD Other Provider Active Start: September 26, 2024 End: September 28, 2024 Dr. Giancarlo Lomeli MD Other Provider Active Sta rt: September 26, 2024 End: September 28, 2024 Dr. Patrizia Burk MD Other Provider Active Start : September 26, 2024 End: September 28, 2024 Dr. Alden Lazaro MD Other Provider Active Start: September 26, 2024 End: September 28, 2024 Dr. Julius Flores MD Other Provider Active Start : September 26, 2024 End: September 28, 2024 Dr. Fred Talbert MD Other Provider Active Sta rt: September 26, 2024 End: September 28, 2024 Jennifer Toledo MD Other Provider Active Start : September 26, 2024 End: September 28, 2024 Dr. Joao Arredondo MD Other Provider Active St art: September 26, 2024 End: September 28, 2024 Dr. Palak Garvin MD Other Provider Active Start : September 26, 2024 End: September 28, 2024 Dr. Michelle Lyons MD Other Provider Active Sta rt: September 26, 2024 End: September 28, 2024 Dr. Indigo Coates MD Other Provider Active Start: September 26, 2024 End: September 28, 2024 Dr. Lavelel Chakraborty MD Other Provider Active St art: September 26, 2024 End: September 28, 2024 Dr. Rogers Heart MD Other Provider Active Star t: September 26, 2024 End: September 28, 2024 Dr. Abrahan Bejarano MD Other Provider Active St art: September 26, 2024 End: September 28, 2024 Dr. Mindy Benítez MD Other Provider Active Start: September 26, 2024 End: September 28, 2024 Ryan Riley MD Other Provider Active Start: September 26, 2024 End: September 28, 2024 Dr. Karina Benítez DO Attending Provider Active S tart: September 26, 2024 End: September 28, 2024 Team Status: Active Member Role/Relationship Status Dates Brandt Winter MD Primary Care Provider Active St art: September 27, 2024 Dr. Angel Avitia MD Referring Provider Active Sta rt: September 27, 2024 Dr. Angel Avitia MD Emergency Provider Active Sta rt: September 27, 2024 Dr. Xiao Berrios MD Admit Provider Active Star t: September 27, 2024 Dr. Xiao Berrios MD Other Provider Active Star t: September 27, 2024 Edmund Dey MD Other Provider Active Start: 2024 Dr. Kristin Boyd MD Other Provider Active Start: September 27, 2024 Amy Dumont MD Other Provider Active Start : September 27, 2024 Dr. Bethany Velasco DO Other Provider Active St art: September 27, 2024 Dr. Lucy Granado MD Other Provider Active Start: September 27, 2024 Dr. Giancarlo Lomeli MD Other Provider Active Sta rt: September 27, 2024 Dr. Patrizia Burk MD Other Provider Active Start : September 27, 2024 Dr. Alden Lazaro MD Other Provider Active Start: September 27, 2024 Dr. Julius Flores MD Other Provider Active Start : September 27, 2024 Dr. Fred Talbert MD Other Provider Active Sta rt: September 27, 2024 Jennifer Toledo MD Other Provider Active Start : September 27, 2024 Dr. Joao Arredondo MD Other Provider Active St art: September 27, 2024 Dr. Palak Garvin MD Other Provider Active Start : September 27, 2024 Dr. Michelle Lyons MD Other Provider Active Sta rt: September 27, 2024 Dr. Indigo Coates MD Other Provider Active Start: September 27, 2024 Dr. Lavelle Chakraborty MD Other Provider Active St art: September 27, 2024 Dr. Rogers Heart MD Other Provider Active Star t: September 27, 2024 Dr. Abrahan Bejarano MD Other Provider Active St art: September 27, 2024 Dr. Mindy Benítez MD Other Provider Active Start: September 27, 2024 Ryan Riley MD Other Provider Active Start: September 27, 2024 Dr. Karina Benítez DO Attending Provider Active S tart: September 27, 2024 Dr. Karina Benítez DO Other Provider Active Start : September 27, 2024 Team Status: Active Member Role/Relationship Status Dates Brandt Winter MD Primary Care Provider Active St art: September 28, 2024 Dr. Sarah Parada MD Attending Provider Active Start: September 28, 2024 Team Status: Active Member Role/Relationship Status Dates Brandt Winter MD Primary Care Provider Active St art: September 28, 2024 Dr. Angel Avitia MD Referring Provider Active Sta rt: September 28, 2024 Dr. Angel Avitia MD Emergency Provider Active Sta rt: September 28, 2024 Dr. Xiao Berrios MD Admit Provider Active Star t: September 28, 2024 Dr. Xiao Berrios MD Other Provider Active Star t: September 28, 2024 Edmund Dey MD Other Provider Active Start: 2024 Dr. Kristin Boyd MD Other Provider Active Start: September 28, 2024 Amy Dumont MD Other Provider Active Start : September 28, 2024 Dr. Bethany Velasco DO Other Provider Active St art: September 28, 2024 Dr. Lucy Granado MD Other Provider Active Start: September 28, 2024 Dr. Giancarlo Lomeli MD Other Provider Active Sta rt: September 28, 2024 Dr. Patrizia Burk MD Other Provider Active Start : September 28, 2024 Dr. Alden Lazaro MD Other Provider Active Start: September 28, 2024 Dr. Julius Flores MD Other Provider Active Start : September 28, 2024 Dr. Fred Talbert MD Other Provider Active Sta rt: September 28, 2024 Jennifer Toledo MD Other Provider Active Start : September 28, 2024 Dr. Joao Arredondo MD Other Provider Active St art: September 28, 2024 Dr. Palak Garvin MD Other Provider Active Start : September 28, 2024 Dr. Michelle Lyons MD Other Provider Active Sta rt: September 28, 2024 Dr. Indigo Coates MD Other Provider Active Start: September 28, 2024 Dr. Lavelle Chakraborty MD Other Provider Active St art: September 28, 2024 Dr. Rogers Heart MD Other Provider Active Star t: September 28, 2024 Dr. Abrahan Bejarano MD Other Provider Active St art: September 28, 2024 Dr. Mindy Benítez MD Other Provider Active Start: September 28, 2024 Ryan Riley MD Other Provider Active Start: September 28, 2024 Dr. Karina Benítez DO Attending Provider Active S tart: September 28, 2024 Dr. Karina Benítez DO Other Provider Active Start : September 28, 2024 Team Status: Active Member Role/Relationship Status Dates Brandt Winter MD Primary Care Provider Active St art: October 05, 2024 Dr. Karina Benítez DO Attending Provider Active S tart: October 05, 2024 Dr. Karina Benítez DO Referring Provider Active S tart: October 05, 2024 Team Status: Inactive Member Role/Relationship Status Dates Brandt Winter MD Primary Care Provider Active St art: October 12, 2024 End: October 12, 2024 Brandt Winter MD Referring Provider Active Start : October 12, 2024 End: October 12, 2024 Dr. Toni Vann MD Attending Provider Active Start: October 12, 2024 End: October 12, 2024 Team Status: Inactive Member Role/Relationship Status Dates Dr. Toni Vann MD Attending Provider Active Start: September 15, 2024 End: September 15, 2024 Dr. Toni Vann MD Referring Provider Active Start: September 15, 2024 End: September 15, 2024 Brandt Winter MD Primary Care Provider Active St art: September 15, 2024 End: September 15, 2024 Team Status: Active Member Role/Relationship Status Dates Brandt Winter MD Primary Care Provider Active St art: September 26, 2024 Dr. Angel Avitia MD Emergency Provider Active Sta rt: September 26, 2024 Dr. Xiao Berrios MD Admit Provider Active Star t: September 26, 2024 Dr. Xiao Berrios MD Attending Provider Active Start: September 26, 2024 Dr. Xiao Berrios MD Other Provider Active Star t: September 26, 2024 Edmund Dey MD Other Provider Active Start: 2024 Dr. Kristin Boyd MD Other Provider Active Start: September 26, 2024 Amy Dumont MD Other Provider Active Start : September 26, 2024 Dr. Bethany Velasco DO Other Provider Active St art: September 26, 2024 Dr. Lucy Granado MD Other Provider Active Start: September 26, 2024 Dr. Giancarlo Lomeli MD Other Provider Active Sta rt: September 26, 2024 Dr. Patrizia Burk MD Other Provider Active Start : September 26, 2024 Dr. Alden Lazaro MD Other Provider Active Start: September 26, 2024 Dr. Julius Flores MD Other Provider Active Start : September 26, 2024 Dr. Fred Talbert MD Other Provider Active Sta rt: September 26, 2024 Jennifer Toledo MD Other Provider Active Start : September 26, 2024 Dr. Joao Arredondo MD Other Provider Active St art: September 26, 2024 Dr. Palak Garvin MD Other Provider Active Start : September 26, 2024 Dr. Michelle Lyons MD Other Provider Active Sta rt: September 26, 2024 Dr. Indigo Coates MD Other Provider Active Start: September 26, 2024 Dr. Lavelle Chakraborty MD Other Provider Active St art: September 26, 2024 Dr. Rogers Heart MD Other Provider Active Star t: September 26, 2024 Dr. Abrahan Bejarano MD Other Provider Active St art: September 26, 2024 Dr. Mindy Benítez MD Other Provider Active Start: September 26, 2024 Ryan Riley MD Other Provider Active Start: September 26, 2024 Team Status: Active Member Role/Relationship Status Dates Brandt Winter MD Primary Care Provider Active St art: September 27, 2024 Dr. Angel Avitia MD Emergency Provider Active Sta rt: September 27, 2024 Dr. Xiao Berrios MD Admit Provider Active Star t: September 27, 2024 Dr. Xiao Berrios MD Other Provider Active Star t: September 27, 2024 Edmund Dey MD Other Provider Active Start: 2024 Dr. Kristin Boyd MD Other Provider Active Start: September 27, 2024 Amy Dumont MD Other Provider Active Start : September 27, 2024 Dr. Bethany Velasco DO Other Provider Active St art: September 27, 2024 Dr. Lucy Granado MD Other Provider Active Start: September 27, 2024 Dr. Giancarlo Lomeli MD Other Provider Active Sta rt: September 27, 2024 Dr. Patrizia Burk MD Other Provider Active Start : September 27, 2024 Dr. Alden Lazaro MD Other Provider Active Start: September 27, 2024 Dr. Julius Flores MD Other Provider Active Start : September 27, 2024 Dr. Fred Talbert MD Other Provider Active Sta rt: September 27, 2024 Jennifer Toledo MD Other Provider Active Start : September 27, 2024 Dr. Joao Arredondo MD Other Provider Active St art: September 27, 2024 Dr. Palak Garvin MD Other Provider Active Start : September 27, 2024 Dr. Michelle Lyons MD Other Provider Active Sta rt: September 27, 2024 Dr. Indigo Coates MD Other Provider Active Start: September 27, 2024 Dr. Lavelle Chakraborty MD Other Provider Active St art: September 27, 2024 Dr. Rogers Heart MD Other Provider Active Star t: September 27, 2024 Dr. Abrahan Bejarano MD Other Provider Active St art: September 27, 2024 Dr. Mindy Benítez MD Other Provider Active Start: September 27, 2024 Ryan Riley MD Other Provider Active Start: September 27, 2024 Dr. Karina Benítez DO Attending Provider Active S tart: September 27, 2024 Dr. Karina Benítez DO Other Provider Active Start : September 27, 2024 Team Status: Active Member Role/Relationship Status Dates Brandt Winter MD Primary Care Provider Active St art: September 28, 2024 Dr. Angel Avitia MD Emergency Provider Active Sta rt: September 28, 2024 Dr. Xiao Berrios MD Admit Provider Active Star t: September 28, 2024 Dr. Xiao Berrios MD Other Provider Active Star t: September 28, 2024 Edmund Dey MD Other Provider Active Start: 2024 Dr. Kristin Boyd MD Other Provider Active Start: September 28, 2024 Amy Dumont MD Other Provider Active Start : September 28, 2024 Dr. Bethany Velasco DO Other Provider Active St art: September 28, 2024 Dr. Lucy Granado MD Other Provider Active Start: September 28, 2024 Dr. Giancarlo Lomeli MD Other Provider Active Sta rt: September 28, 2024 Dr. Patrizia Burk MD Other Provider Active Start : September 28, 2024 Dr. Alden Laazro MD Other Provider Active Start: September 28, 2024 Dr. Julius Flores MD Other Provider Active Start : September 28, 2024 Dr. Fred Talbert MD Other Provider Active Sta rt: September 28, 2024 Jennifer Toledo MD Other Provider Active Start : September 28, 2024 Dr. Joao Arredondo MD Other Provider Active St art: September 28, 2024 Dr. Palak Garvin MD Other Provider Active Start : September 28, 2024 Dr. Michelle Lyons MD Other Provider Active Sta rt: September 28, 2024 Dr. Indigo Coates MD Other Provider Active Start: September 28, 2024 Dr. Lavelle Chakraborty MD Other Provider Active St art: September 28, 2024 Dr. Rogers Heart MD Other Provider Active Star t: September 28, 2024 Dr. Abrahan Bejarano MD Other Provider Active St art: September 28, 2024 Dr. Mindy Benítez MD Other Provider Active Start: September 28, 2024 Ryan Riley MD Other Provider Active Start: September 28, 2024 Dr. Karina Benítez DO Attending Provider Active S tart: September 28, 2024 Dr. Karina Benítez DO Other Provider Active Start : September 28, 2024 Team Status: Inactive Member Role/Relationship Status Dates Brandt Winter MD Primary Care Provider Active St art: October 12, 2024 End: October 12, 2024 Brandt Winter MD Referring Provider Active Start : October 12, 2024 End: October 12, 2024 Dr. Toni Vann MD Attending Provider Active Start: October 12, 2024 End: October 12, 2024 Team Status: Active Member Role/Relationship Status Dates Brandt Winter MD Primary Care Provider Active St art: October 13, 2024 Dr. Karina Benítez DO Attending Provider Active S tart: October 13, 2024 Dr. Karina Benítez DO Referring Provider Active S tart: October 13, 2024 Team Status: Inactive Member Role/Relationship Status Dates Brandt Winter MD Primary Care Provider Active St art: October 13, 2024 End: October 13, 2024 Brandt Winter MD Attending Provider Active Start : October 13, 2024 End: October 13, 2024 Brandt Winter MD Referring Provider Active Start : October 13, 2024 End: October 13, 2024 Dr. Toni Vann MD Other Provider Active S tart: October 13, 2024 End: October 13, 2024 PITO Phan Other Provider Active Star t: October 13, 2024 End: October 13, 2024 Lydia GRIFFITHS, PA Other Provider Active Start: October 13, 2024 End: October 13, 2024 Team Status: Inactive Member Role/Relationship Status Dates Brandt Winter MD Primary Care Provider Active St art: October 13, 2024 End: October 13, 2024 Brandt Winter MD Attending Provider Active Start : October 13, 2024 End: October 13, 2024 Brandt Winter MD Referring Provider Active Start : October 13, 2024 End: October 13, 2024 Dr. Toni Vann MD Other Provider Active S tart: October 13, 2024 End: October 13, 2024 [employer] Other Provider Active Star t: October 13, 2024 End: October 13, 2024 Lydia GRIFFITHS, PA Other Provider Active Start: October 13, 2024 End: October 13, 2024 Team Status: Active Member Role/Relationship Status Dates Brandt Winter MD Primary Care Provider Active St art: October 23, 2024 Dr. Karina Benítez , Attending Provider Active S tart: October 23, 2024 Dr. Karina Benítez , Referring Provider Active S tart: October 23, 2024 Team Status: Inactive Member Role/Relationship Status Dates Dr. Radha Khan MD Referring Provider Active Start: October 27, 2024 End: October 27, 2024 Lydia GRIFFITHS, PA Attending Provider Active Start: October 27, 2024 End: October 27, 2024 Brandt Winter MD Primary Care Provider Active St art: October 27, 2024 End: October 27, 2024 Air Pollution Inspector Relationship Specialty Start Date End Date Radha Khan [address] [place] [id number] PCP - General Family Medicine 10/03/23 Suzy Jauregui MD [address] [place] [address] Consulting Physician Vascular Surgery 04/24/24 Air Pollution Inspector Relationship Specialty Start Date End Date Radha Khan [address] [place] [id number] PCP - General Family Medicine 10/03/23 Suzy Jauregui MD [address] [place] [address] Consulting Physician Vascular Surgery 04/24/24 Team Status: Inactive Member Role/Relationship Status Dates Dr. Radha Khan MD Referring Provider Active Start: October 27, 2024 End: October 27, 2024 Lydia Segura PA, PA Attending Provider Active Start: October 27, 2024 End: October 27, 2024 Brandt Winter MD Primary Care Provider Active St art: October 27, 2024 End: October 27, 2024 Team Status: Active Member Role/Relationship Status Dates Brandt Winter MD Primary Care Provider Active St art: November 02, 2024 Dr. Karina Benítez , Attending Provider Active S tart: November 02, 2024 Dr. Karina Benítez , Referring Provider Active S tart: November 02, 2024 Team Status: Active Member Role/Relationship Status Dates Dr. Radha Khan MD Primary Care Provider Active Start: November 03, 2024 Dr. Rito Lundberg MD Attending Provider Active Start: November 03, 2024 Dr. Rito Lundberg MD Referring Provider Active Start: November 03, 2024 Team Status: Inactive Member Role/Relationship Status Dates Dr. Rito Lundberg MD Attending Provider Active Start: November 03, 2024 End: November 03, 2024 Brandt Winter MD Primary Care Provider Active St art: November 03, 2024 End: November 03, 2024 Brandt Winter MD Referring Provider Active Start : November 03, 2024 End: November 03, 2024 Team Status: Inactive Member Role/Relationship Status [...] Status: Inactive Member Role/Relationship Status Dates Dr. Toni Vann MD Attending Provider Active Start: September 15, 2024 End: September 15, 2024 Dr. Toni Vann MD Referring Provider Active Start: September 15, [...] Attending Provider Active Start: September 26, 2024 Dr. Xiao Berrios MD Other Provider Active Star t: September 26, 2024 Edmund Dey MD Other Provider Active Start: 2024 Dr. Kristin Boyd MD Other Provider Active Start: September 26, 2024 Amy Dumont MD Other Provider Active Start : September 26, 2024 Dr. Bethany Velasco DO Other Provider Active St art: September 26, 2024 Dr. Lucy Granado MD Other Provider Active Start: September 26, 2024 Dr. Giancarlo Lomeli MD Other Provider Active Sta rt: September 26, 2024 Dr. Patrizia Burk MD Other Provider Active Start : September 26, 2024 Dr. Alden Lazaro MD Other Provider Active Start: September 26, 2024 Dr. Julius Flores MD Other Provider Active Start : September 26, 2024 Dr. Fred Talbert MD Other Provider Active Sta rt: September 26, 2024 Jennifer Toledo MD Other Provider Active Start : September 26, 2024 Dr. Joao Arredondo MD Other Provider Active St art: September 26, 2024 Dr. Palak Garvin MD Other Provider Active Start : September 26, 2024 Dr. Michelle Lyons MD Other Provider Active Sta rt: September 26, 2024 Dr. Indigo Coates MD Other Provider Active Start: September 26, 2024 Dr. Lavelle Chakraborty MD Other Provider Active St art: September 26, 2024 Dr. Rogers Heart MD Other Provider Active Star t: September 26, 2024 Dr. Abrahan Bejarano MD Other Provider Active St art: September 26, 2024 Dr. Mindy Benítez MD Other Provider Active Start: September 26, 2024 Ryan Riley MD Other Provider Active Start: September 26, 2024 Team Status: Inactive Member Role/Relationship Status Dates Brandt Winter MD Primary Care Provider Active St art: September 26, 2024 End: September 28, 2024 Dr. Angel Avitia MD Referring Provider Active Sta rt: September 26, 2024 End: September 28, 2024 Dr. Angel Avitia MD Emergency Provider Active Sta rt: September 26, 2024 End: September 28, 2024 Dr. Xiao Berrios MD Admit Provider Active Star t: September 26, 2024 End: September 28, 2024 Dr. Xiao Berrios MD Other Provider Active Star t: September 26, 2024 End: September 28, 2024 Edmund Dey MD Other Provider Active Start: 2024 End: September 28, 2024 Dr. Kristin Boyd MD Other Provider Active Start: September 26, 2024 End: September 28, 2024 Amy Dumont MD Other Provider Active Start : September 26, 2024 End: September 28, 2024 Dr. Bethany Velasco DO Other Provider Active St art: September 26, 2024 End: September 28, 2024 Dr. Lucy Granado MD Other Provider Active Start: September 26, 2024 End: September 28, 2024 Dr. Giancarlo Lomeli MD Other Provider Active Sta rt: September 26, 2024 End: September 28, 2024 Dr. Patrizia Burk MD Other Provider Active Start : September 26, 2024 End: September 28, 2024 Dr. Alden Lazaro MD Other Provider Active Start: September 26, 2024 End: September 28, 2024 Dr. Julius Flores MD Other Provider Active Start : September 26, 2024 End: September 28, 2024 Dr. Fred Talbert MD Other Provider Active Sta rt: September 26, 2024 End: September 28, 2024 Jennifer Toledo MD Other Provider Active Start : September 26, 2024 End: September 28, 2024 Dr. Joao Arredondo MD Other Provider Active St art: September 26, 2024 End: September 28, 2024 Dr. Palak Garvin MD Other Provider Active Start : September 26, 2024 End: September 28, 2024 Dr. Michelle Lyons MD Other Provider Active Sta rt: September 26, 2024 End: September 28, 2024 Dr. Indigo Coates MD Other Provider Active Start: September 26, 2024 End: September 28, 2024 Dr. Lavelle Chakraborty MD Other Provider Active St art: September 26, 2024 End: September 28, 2024 Dr. Rogers Heart MD Other Provider Active Star t: September 26, 2024 End: September 28, 2024 Dr. Abrahan Bejarano MD Other Provider Active St art: September 26, 2024 End: September 28, 2024 Dr. Mindy Benítez MD Other Provider Active Start: September 26, 2024 End: September 28, 2024 Ryan Riley MD Other Provider Active Start: September 26, 2024 End: September 28, 2024 Dr. Karina Benítez DO Attending Provider Active S tart: September 26, 2024 End: September 28, 2024 Team Status: Active Member Role/Relationship Status Dates Brandt Winter MD Primary Care Provider Active St art: September 27, 2024 Dr. Angel Avitia MD Emergency Provider Active Sta rt: September 27, 2024 Dr. Xiao Berrios MD Admit Provider Active Star t: September 27, 2024 Dr. Xiao Berrios MD Other Provider Active Star t: September 27, 2024 Edmund Dey MD Other Provider Active Start: 2024 Dr. Kristin Boyd MD Other Provider Active Start: September 27, 2024 Amy Dumont MD Other Provider Active Start : September 27, 2024 Dr. Bethany Velasco DO Other Provider Active St art: September 27, 2024 Dr. Lucy Granado MD Other Provider Active Start: September 27, 2024 Dr. Giancarlo Lomeli MD Other Provider Active Sta rt: September 27, 2024 Dr. Patrizia Burk MD Other Provider Active Start : September 27, 2024 Dr. Alden Lazaro MD Other Provider Active Start: September 27, 2024 Dr. Julius Flores MD Other Provider Active Start : September 27, 2024 Dr. Fred Talbert MD Other Provider Active Sta rt: September 27, 2024 Jennifer Toledo MD Other Provider Active Start : September 27, 2024 Dr. Joao Arredondo MD Other Provider Active St art: September 27, 2024 Dr. Palak Garvin MD Other Provider Active Start : September 27, 2024 Dr. Michelle Lyons MD Other Provider Active Sta rt: September 27, 2024 Dr. Indigo Coates MD Other Provider Active Start: September 27, 2024 Dr. Lavelle Chakraborty MD Other Provider Active St art: September 27, 2024 Dr. Rogers Heart MD Other Provider Active Star t: September 27, 2024 Dr. Abrahan Bejarano MD Other Provider Active St art: September 27, 2024 Dr. Mindy Benítez MD Other Provider Active Start: September 27, 2024 Ryan Riley MD Other Provider Active Start: September 27, 2024 Dr. Karina Benítez DO Attending Provider Active S tart: September 27, 2024 Dr. Karina Benítez DO Other Provider Active Start : September 27, 2024 Team Status: Active Member Role/Relationship Status Dates Brandt Winter MD Primary Care Provider Active St art: September 28, 2024 Dr. Sarah Parada MD Attending Provider Active Start: September 28, 2024 Team Status: Active Member Role/Relationship Status Dates Brandt Winter MD Primary Care Provider Active St art: September 28, 2024 Dr. Angel Avitia MD Emergency Provider Active Sta rt: September 28, 2024 Dr. Xiao Berrios MD Admit Provider Active Star t: September 28, 2024 Dr. Xiao Berrios MD Other Provider Active Star t: September 28, 2024 Edmund Dey MD Other Provider Active Start: 2024 Dr. Kristin Boyd MD Other Provider Active Start: September 28, 2024 Amy Dumont MD Other Provider Active Start : September 28, 2024 Dr. Bethany Velasco DO Other Provider Active St art: September 28, 2024 Dr. Lucy Granado MD Other Provider Active Start: September 28, 2024 Dr. Giancarlo Lomeli MD Other Provider Active Sta rt: September 28, 2024 Dr. Patrizia Burk MD Other Provider Active Start : September 28, 2024 Dr. Alden Lazaro MD Other Provider Active Start: September 28, 2024 Dr. Julius Flores MD Other Provider Active Start : September 28, 2024 Dr. Fred Talbert MD Other Provider Active Sta rt: September 28, 2024 Jennifer Toledo MD Other Provider Active Start : September 28, 2024 Dr. Joao Arredondo MD Other Provider Active St art: September 28, 2024 Dr. Palak Garvin MD Other Provider Active Start : September 28, 2024 Dr. Michelle Lyons MD Other Provider Active Sta rt: September 28, 2024 Dr. Indigo Coates MD Other Provider Active Start: September 28, 2024 Dr. Lavelle Chakraborty MD Other Provider Active St art: September 28, 2024 Dr. Rogers Heart MD Other Provider Active Star t: September 28, 2024 Dr. Abrahan Bejarano MD Other Provider Active St art: September 28, 2024 Dr. Mindy Benítez MD Other Provider Active Start: September 28, 2024 Ryan Riley MD Other Provider Active Start: September 28, 2024 Dr. Karina Benítez DO Attending Provider Active S tart: September 28, 2024 Dr. Karina Benítez DO Other Provider Active Start : September 28, 2024 Team Status: Inactive Member Role/Relationship Status Dates Brandt Winter MD Primary Care Provider Active St art: October 12, 2024 End: October 12, 2024 Brandt Winter MD Referring Provider Active Start : October 12, 2024 End: October 12, 2024 Dr. Toni Vann MD Attending Provider Active Start: October 12, 2024 End: October 12, 2024 Team Status: Inactive Member Role/Relationship Status Dates Brandt Winter MD Primary Care Provider Active St art: October 13, 2024 End: October 13, 2024 Brandt Winter MD Attending Provider Active Start : October 13, 2024 End: October 13, 2024 Brandt Winter MD Referring Provider Active Start : October 13, 2024 End: October 13, 2024 Dr. Toni Vann MD Other Provider Active S tart: October 13, 2024 End: October 13, 2024 Jessica Gerardo NP-Surinder Other Provider Active Star t: October 13, 2024 End: October 13, 2024 Lydia GRIFFITHS, PA Other Provider Active Start: October 13, 2024 End: October 13, 2024 Team Status: Inactive Member Role/Relationship Status Dates Dr. Radha Khan MD Referring Provider Active Start: October 27, 2024 End: October 27, 2024 Lydia GRIFFITHS, PA Attending Provider Active Start: October 27, 2024 End: October 27, 2024 Brandt Winter MD Primary Care Provider Active St art: October 27, 2024 End: October 27, 2024 Team Status: Active Member Role/Relationship Status Dates Dr. Radha Khan MD Primary Care Provider Active Start: November 03, 2024 Dr. Rito Lundberg MD Attending Provider Active Start: November 03, 2024 Dr. Rito Lundberg MD Referring Provider Active Start: November 03, 2024 Team Status: Inactive Member Role/Relationship Status Dates Dr. Rito Lundberg MD Attending Provider Active Start: November 03, 2024 End: November 03, 2024 Brandt Winter MD Primary Care Provider Active St art: November 03, 2024 End: November 03, 2024 Brandt Winter MD Referring Provider Active Start : November 03, 2024 End: November 03, 2024 Team Status: Active Member Role/Relationship Status Dates Brandt Winter MD Primary Care Provider Active St art: November 09, 2024 Dr. Karina Benítez , Attending Provider Active S tart: November 09, 2024 Dr. Karina Benítez , Referring Provider Active S tart: November 09, 2024 Team Status: Inactive Member Role/Relationship Status Dates Brandt Winter MD Primary Care Provider Active St art: November 12, 2024 End: November 12, 2024 Brandt Winter MD Referring Provider Active Start : November 12, 2024 End: November 12, 2024 Dr. Toni Vann MD Attending Provider Active Start: November 12, 2024 End: November 12, 2024 Team Status: Inactive Member Role/Relationship Status Nir Winter MD Primary Care Provider Active St art: November 12, 2024 End: November 12, 2024 Brandt Winter MD Referring Provider Active Start : November 12, 2024 End: November 12, 2024 Dr. Toni Vann MD Attending Provider Active Start: November 12, 2024 End: November 12, 2024 Team Status: Active Member Role/Relationship Status Nir Winter MD Primary Care Provider Active St art: November 19, 2024 Dr. Karina Benítez DO Attending Provider Active S tart: November 19, 2024 Dr. Karina Benítez DO Referring Provider Active S tart: November 19, 2024 Team Status: Inactive Member Role/Relationship Status Nir Winter MD Primary Care Provider Active St art: November 25, 2024 End: November 25, 2024 Brandt Winter MD Referring Provider Active Start : November 25, 2024 End: November 25, 2024 Chen Rojas NP-C Attending Provider Active Start: November 25, 2024 End: November 25, 2024 Team Status: Active Member Role/Relationship Status Nir Winter MD Primary Care Provider Active St art: November 26, 2024 Dr. Betina Martinez MD Emergency Provider Active S tart: November 26, 2024 Dr. Ochoa Johnson DO Admit Provider Active Star t: November 26, 2024 Dr. Ochoa Johnson DO Attending Provider Active Start: November 26, 2024 Team Status: Active Member Role/Relationship Status Nir Winter MD Primary Care Provider Active St art: November 26, 2024 Dr. Betina Martinez MD Emergency Provider Active S tart: November 26, 2024 Dr. Ochoa Johnson DO Attending Provider Active Start: November 26, 2024 Air Pollution Inspector Relationship Specialty Start Date End Date Radha Khan MD Tacho Wahl [facility] [address] [place] [address] PCP - General Family Medicine 07/24/24 Team Status: Inactive Member Role/Relationship Status Nir Winter MD Primary Care Provider Active St art: November 26, 2024 End: November 28, 2024 Dr. Betina Martinez MD Emergency Provider Active S tart: November 26, 2024 End: November 28, 2024 Dr. Ochoa Johnson DO Admit Provider Active Star t: November 26, 2024 End: November 28, 2024 Dr. cOhoa Johnson DO Attending Provider Active Start: November 26, 2024 End: November 28, 2024 Team Status: Active Member Role/Relationship Status Nir Winter MD Primary Care Provider Active St art: November 27, 2024 Dr. Betina Martinez MD Emergency Provider Active S tart: November 27, 2024 Dr. Ochoa Johnson DO Admit Provider Active Star t: November 27, 2024 Dr. Ochoa Johnson DO Attending Provider Active Start: November 27, 2024 Dr. Ochoa Johnson DO Other Provider Active Star t: November 27, 2024 Team Status: Active Member Role/Relationship Status Nir Winter MD Primary Care Provider Active St art: November 28, 2024 Dr. Betina Martinez MD Emergency Provider Active S tart: November 28, 2024 Dr. Ochoa Johnson DO Admit Provider Active Star t: November 28, 2024 Dr. Ochoa Johnson DO Attending Provider Active Start: November 28, 2024 Dr. Ochoa Johnson DO Other Provider Active Star t: November 28, 2024 Team Status: Inactive Member Role/Relationship Status Nir Winter MD Primary Care Provider Active St art: November 19, 2024 End: November 19, 2024 Dr. Karina Benítez , Attending Provider Active S tart: November 19, 2024 End: November 19, 2024 Dr. Karina Benítez , Referring Provider Active S tart: November 19, 2024 End: November 19, 2024 Team Status: Inactive Member Role/Relationship Status Dates Dr. Radha Khan MD Referring Provider Active Start: August 17, 2024 End: August 17, 2024 Dr. Toni Vann MD Attending Provider Active Start: August 17, 2024 End: August 17, 2024 Brandt Winter MD Primary Care Provider Active St art: August 17, 2024 End: August 17, 2024 Team Status: Inactive Member Role/Relationship Status Dates Dr. Toni Vann MD Attending Provider Active Start: September 15, 2024 End: September 15, 2024 Dr. Toni Vann MD Referring Provider Active Start: September 15, [...] Attending Provider Active Start: September 26, 2024 Dr. Xiao Berrios MD Other Provider Active Star t: September 26, 2024 Edmund Dey MD Other Provider Active Start: 2024 Dr. Kristin Boyd MD Other Provider Active Start: September 26, 2024 Amy Dumont MD Other Provider Active Start : September 26, 2024 Dr. Bethany Velasco DO Other Provider Active St art: September 26, 2024 Dr. Lucy Granado MD Other Provider Active Start: September 26, 2024 Dr. Giancarlo Lomeli MD Other Provider Active Sta rt: September 26, 2024 Dr. Patrizia Burk MD Other Provider Active Start : September 26, 2024 Dr. Alden Lazaro MD Other Provider Active Start: September 26, 2024 Dr. Julius Flores MD Other Provider Active Start : September 26, 2024 Dr. Fred Talbert MD Other Provider Active Sta rt: September 26, 2024 Jennifer Toledo MD Other Provider Active Start : September 26, 2024 Dr. Joao Arredondo MD Other Provider Active St art: September 26, 2024 Dr. Palak Garvin MD Other Provider Active Start : September 26, 2024 Dr. Michelle Lyons MD Other Provider Active Sta rt: September 26, 2024 Dr. Indigo Coates MD Other Provider Active Start: September 26, 2024 Dr. Lavelle Chakraborty MD Other Provider Active St art: September 26, 2024 Dr. Rogers Heart MD Other Provider Active Star t: September 26, 2024 Dr. Abrahan Bejarano MD Other Provider Active St art: September 26, 2024 Dr. Mindy Benítez MD Other Provider Active Start: September 26, 2024 Ryan Riley MD Other Provider Active Start: September 26, 2024 Team Status: Inactive Member Role/Relationship Status Dates Brandt Winter MD Primary Care Provider Active St art: September 26, 2024 End: September 28, 2024 Dr. Angel Avitia MD Referring Provider Active Sta rt: September 26, 2024 End: September 28, 2024 Dr. Angel Avitia MD Emergency Provider Active Sta rt: September 26, 2024 End: September 28, 2024 Dr. Xiao Berrios MD Admit Provider Active Star t: September 26, 2024 End: September 28, 2024 Dr. Xiao Berrios MD Other Provider Active Star t: September 26, 2024 End: September 28, 2024 Edmund Dey MD Other Provider Active Start: 2024 End: September 28, 2024 Dr. Kristin Boyd MD Other Provider Active Start: September 26, 2024 End: September 28, 2024 Amy Dumont MD Other Provider Active Start : September 26, 2024 End: September 28, 2024 Dr. Bethany Velasco DO Other Provider Active St art: September 26, 2024 End: September 28, 2024 Dr. Lucy Granado MD Other Provider Active Start: September 26, 2024 End: September 28, 2024 Dr. Giancarlo Lomeli MD Other Provider Active Sta rt: September 26, 2024 End: September 28, 2024 Dr. Patrizia Burk MD Other Provider Active Start : September 26, 2024 End: September 28, 2024 Dr. Alden Lazaro MD Other Provider Active Start: September 26, 2024 End: September 28, 2024 Dr. Julius Flores MD Other Provider Active Start : September 26, 2024 End: September 28, 2024 Dr. Fred Talbert MD Other Provider Active Sta rt: September 26, 2024 End: September 28, 2024 Jennifer Toledo MD Other Provider Active Start : September 26, 2024 End: September 28, 2024 Dr. Joao Arredondo MD Other Provider Active St art: September 26, 2024 End: September 28, 2024 Dr. Palak Garvin MD Other Provider Active Start : September 26, 2024 End: September 28, 2024 Dr. Michelle Lyons MD Other Provider Active Sta rt: September 26, 2024 End: September 28, 2024 Dr. Indigo Coates MD Other Provider Active Start: September 26, 2024 End: September 28, 2024 Dr. Lavelle Chakraborty MD Other Provider Active St art: September 26, 2024 End: September 28, 2024 Dr. oRgers Heart MD Other Provider Active Star t: September 26, 2024 End: September 28, 2024 Dr. Abrahan Bejarano MD Other Provider Active St art: September 26, 2024 End: September 28, 2024 Dr. Mindy Benítez MD Other Provider Active Start: September 26, 2024 End: September 28, 2024 Ryan Riley MD Other Provider Active Start: September 26, 2024 End: September 28, 2024 Dr. Karina Benítez DO Attending Provider Active S tart: September 26, 2024 End: September 28, 2024 Team Status: Active Member Role/Relationship Status Dates Brandt Winter MD Primary Care Provider Active St art: September 27, 2024 Dr. Angel Avitia MD Emergency Provider Active Sta rt: September 27, 2024 Dr. Xiao Berrios MD Admit Provider Active Star t: September 27, 2024 Dr. Xiao Berrios MD Other Provider Active Star t: September 27, 2024 Edmund Dey MD Other Provider Active Start: 2024 Dr. Kristin Boyd MD Other Provider Active Start: September 27, 2024 Amy Dumont MD Other Provider Active Start : September 27, 2024 Dr. Bethany Velasco DO Other Provider Active St art: September 27, 2024 Dr. Lucy Granado MD Other Provider Active Start: September 27, 2024 Dr. Giancarlo Lomeli MD Other Provider Active Sta rt: September 27, 2024 Dr. Patrizia Burk MD Other Provider Active Start : September 27, 2024 Dr. Alden Lazaro MD Other Provider Active Start: September 27, 2024 Dr. Julius Flores MD Other Provider Active Start : September 27, 2024 Dr. Fred Talbert MD Other Provider Active Sta rt: September 27, 2024 Jennifer Toledo MD Other Provider Active Start : September 27, 2024 Dr. Joao Arredondo MD Other Provider Active St art: September 27, 2024 Dr. Palak Garvin MD Other Provider Active Start : September 27, 2024 Dr. Michelle Lyons MD Other Provider Active Sta rt: September 27, 2024 Dr. Indigo Coates MD Other Provider Active Start: September 27, 2024 Dr. Lavelle Chakraborty MD Other Provider Active St art: September 27, 2024 Dr. Rogers Heart MD Other Provider Active Star t: September 27, 2024 Dr. Abrahan Bejarano MD Other Provider Active St art: September 27, 2024 Dr. Mindy Benítez MD Other Provider Active Start: September 27, 2024 Ryan Riley MD Other Provider Active Start: September 27, 2024 Dr. Karina Benítez DO Attending Provider Active S tart: September 27, 2024 Dr. Karina Benítez DO Other Provider Active Start : September 27, 2024 Team Status: Active Member Role/Relationship Status Dates Brandt Winter MD Primary Care Provider Active St art: September 28, 2024 Dr. Sarah Parada MD Attending Provider Active Start: September 28, 2024 Team Status: Active Member Role/Relationship Status Dates Brandt Winter MD Primary Care Provider Active St art: September 28, 2024 Dr. Angel Avitia MD Emergency Provider Active Sta rt: September 28, 2024 Dr. Xiao Berrios MD Admit Provider Active Star t: September 28, 2024 Dr. Xiao Berrios MD Other Provider Active Star t: September 28, 2024 Edmund Dey MD Other Provider Active Start: 2024 Dr. Kristin Boyd MD Other Provider Active Start: September 28, 2024 Amy Dumont MD Other Provider Active Start : September 28, 2024 Dr. Bethany Velasco DO Other Provider Active St art: September 28, 2024 Dr. Lucy Granado MD Other Provider Active Start: September 28, 2024 Dr. Giancarlo Lomeli MD Other Provider Active Sta rt: September 28, 2024 Dr. Patrizia Burk MD Other Provider Active Start : September 28, 2024 Dr. Alden Lazaro MD Other Provider Active Start: September 28, 2024 Dr. Julius Flores MD Other Provider Active Start : September 28, 2024 Dr. Fred Talbert MD Other Provider Active Sta rt: September 28, 2024 Jennifer Toledo MD Other Provider Active Start : September 28, 2024 Dr. Joao Arredondo MD Other Provider Active St art: September 28, 2024 Dr. Palak Garvin MD Other Provider Active Start : September 28, 2024 Dr. Michelle Lyons MD Other Provider Active Sta rt: September 28, 2024 Dr. Indigo Coates MD Other Provider Active Start: September 28, 2024 Dr. Lavelle Chakraborty MD Other Provider Active St art: September 28, 2024 Dr. Rogers Heart MD Other Provider Active Star t: September 28, 2024 Dr. Abrahan Bejarano MD Other Provider Active St art: September 28, 2024 Dr. Mindy Benítez MD Other Provider Active Start: September 28, 2024 Ryan Riley MD Other Provider Active Start: September 28, 2024 Dr. Karina Benítez DO Attending Provider Active S tart: September 28, 2024 Dr. Karina Benítez DO Other Provider Active Start : September 28, 2024 Team Status: Inactive Member Role/Relationship Status Dates Brandt Winter MD Primary Care Provider Active St art: October 12, 2024 End: October 12, 2024 Brandt Winter MD Referring Provider Active Start : October 12, 2024 End: October 12, 2024 Dr. Toni Vann MD Attending Provider Active Start: October 12, 2024 End: October 12, 2024 Team Status: Inactive Member Role/Relationship Status Dates Brandt Winter MD Primary Care Provider Active St art: October 13, 2024 End: October 13, 2024 Brandt Winter MD Attending Provider Active Start : October 13, 2024 End: October 13, 2024 Brandt Winter MD Referring Provider Active Start : October 13, 2024 End: October 13, 2024 Dr. Toni Vann MD Other Provider Active S tart: October 13, 2024 End: October 13, 2024 PITO Phan Other Provider Active Star t: October 13, 2024 End: October 13, 2024 Lydia GRIFFITHS, PA Other Provider Active Start: October 13, 2024 End: October 13, 2024 Team Status: Inactive Member Role/Relationship Status Dates Dr. Radha Khan MD Referring Provider Active Start: October 27, 2024 End: October 27, 2024 Lydia GRIFFITHS, [place] Attending Provider Active Start: October 27, 2024 End: October 27, 2024 Brandt Winter MD Primary Care Provider Active St art: October 27, 2024 End: October 27, 2024 Team Status: Inactive Member Role/Relationship Status Dates Dr. Rito Lundberg MD Attending Provider Active Start: November 03, 2024 End: November 03, 2024 Brandt Winter MD Primary Care Provider Active St art: November 03, 2024 End: November 03, 2024 Brandt Winter MD Referring Provider Active Start : November 03, 2024 End: November 03, 2024 Team Status: Inactive Member Role/Relationship Status Dates Brandt Winter MD Primary Care Provider Active St art: November 12, 2024 End: November 12, 2024 Brandt Winter MD Referring Provider Active Start : November 12, 2024 End: November 12, 2024 Dr. Toni Vann MD Attending Provider Active Start: November 12, 2024 End: November 12, 2024 Team Status: Inactive Member Role/Relationship Status Nir Winter MD Primary Care Provider Active St art: November 19, 2024 End: November 19, 2024 Dr. Karina Benítez DO Attending Provider Active S tart: November 19, 2024 End: November 19, 2024 Dr. Karina Benítez DO Referring Provider Active S tart: November 19, 2024 End: November 19, 2024 Team Status: Inactive Member Role/Relationship Status Nir Winter MD Primary Care Provider Active St art: November 25, 2024 End: November 25, 2024 Brandt Winter MD Referring Provider Active Start : November 25, 2024 End: November 25, 2024 PITO Peña Attending Provider Active Start: November 25, 2024 End: November 25, 2024 Team Status: Inactive Member Role/Relationship Status Nir Winter MD Primary Care Provider Active St art: November 26, 2024 End: November 28, 2024 Dr. Betina Martinez MD Emergency Provider Active S tart: November 26, 2024 End: November 28, 2024 Dr. Ochoa Johnson DO Admit Provider Active Star t: November 26, 2024 End: November 28, 2024 Dr. Ochoa Johnson DO Attending Provider Active Start: November 26, 2024 End: November 28, 2024 Team Status: Active Member Role/Relationship Status Nir Winter MD Primary Care Provider Active St art: November 26, 2024 Dr. Betina Martinez MD Emergency Provider Active S tart: November 26, 2024 Dr. Ochoa Johnson DO Attending Provider Active Start: November 26, 2024 Team Status: Active Member Role/Relationship Status Nir Winter MD Primary Care Provider Active St art: November 27, 2024 Dr. Betina Martinez MD Emergency Provider Active S tart: November 27, 2024 Dr. Ochoa Johnson DO Admit Provider Active Star t: November 27, 2024 Dr. Ochoa Johnson DO Attending Provider Active Start: November 27, 2024 Dr. Ochoa Johnson DO Other Provider Active Star t: November 27, 2024 Team Status: Active Member Role/Relationship Status Dates Brandt Winter MD Primary Care Provider Active St art: November 28, 2024 Dr. Betina Martinez MD Emergency Provider Active S tart: November 28, 2024 Dr. Ochoa Johnson DO Admit Provider Active Star t: November 28, 2024 Dr. Ochoa Johnson DO Attending Provider Active Start: November 28, 2024 Dr. Ochoa Johnson DO Other Provider Active Star t: November 28, 2024 Team Status: Active Member Role/Relationship Status Dates Dr. Radha Khan MD Primary Care Provider Active Start: December 09, 2024 Dr. Rito Lundberg MD Attending Provider Active Start: December 09, 2024 Dr. Rito Lundberg MD Referring Provider Active Start: December 09, 2024 Team Status: Inactive Member Role/Relationship Status Dates Brandt Winter MD Primary Care Provider Active St art: December 10, 2024 End: December 10, 2024 Brandt Winter MD Attending Provider Active Start : December 10, 2024 End: December 10, 2024 Brandt Winter MD Referring Provider Active Start : December 10, 2024 End: December 10, 2024 Reason for Visit (unrecogniz ed section and content) Specialty Diagnoses / Procedures Referred By Contac t Referred To Contact Diagnoses carotid stenosis Procedures . Joe Rocha MD [address] [place] [address] Formerly [facility] [address] [id number] Referral ID Status Reason Start Date Expiration Date Visits Re quested Visits Authorized [id number] 1 1 Reason Comments New Patient New stroke 10/02, mult iple mini strokes since. No current deficits per patient. 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 Administ ered Medications (unrecognized section and content) Medication Order 10/03/2023 10/04/2023 10/05/2023 amLODIPine (Norvasc) tablet 5 mg 5 mg, Oral, Daily, First dose on Sat10/04/23 at 0900 0906 (Given - Provider: Nely Lambert RN) 08 (Given - Provider: Dariana Lawrence, CAMILA) apixaban (Eliquis) tablet 5 mg 5 mg, Oral, 2 times daily, First dose on Sat10/03/23 at 2130, Anticoagulant 224 (Given - Provider: Dalila Helms RN) 905 (Given - Provider: Nely Lambert RN)2033 (Given - Provider: Dalila Helms RN) 825 (Given - Provider: Dariana Lawrence RN) aspirin [...] 2242 (Given - Provider: Dalila Helms RN) 09 (Given - Provider: Nely Lambert RN)1320 (Given - Provider: Nely Lambert, CAMILA)2033 (Given - Provider: Dalila Helms RN) 08 (Given - Provider: Dariana Lawrence RN)1403 (Given - Provider: Dariana Lawrence, CAMILA) dapagliflozin (Farxiga) tablet 5 mg 5 mg, Oral, Daily, First dose on Sat10/04/23 at 0900 0905 (Given - Provider: Nely Lambert RN) 08 (Given - Provider: Dariana Lawrence RN) DULoxetine (Cymbalta) DR capsule 60 mg 60 mg, Oral, Daily, First dose on Sat10/04/23 at 0900, Do not crush or chew. 0906 (Given - Provider: Nely Lambert RN) 0826 (Given - Provider: Dariana Lawrence RN) furosemide (Lasix) tablet 40 mg 40 mg, Oral, 2 times daily, First dose on Sat10/04/23 at 0600 0555 (Given - Provider: Dalila Hlems RN)1627 (Given - Provider: Nely Lambert RN) [...] or split. 05 (Given - Provider: Dalila Helms RN) 06 [...] Nely Lambert RN)1830 (Given - Provider: Nely Lambert, CAMILA) 0625 (Given - Provider: Dalila Helms, CAMILA) tamsulosin (Flomax) 24 hr capsule 0.4 mg 0.4 mg, Oral, Daily, First dose on Sat10/04/23 at 0900, Do not crush, chew, or split. 09 (Given - Provider: Nely Lambert RN) 08 (Given - Provider: Dariana Lawrence, CAMILA) Continuous Medication Order 10/03/2023 10/04/2023 10/05/2023 sodium chloride 0.9 % infusion (CANCELED) 50 mL/hr, IntraVENous, Continuous, Starting on Sat10/04/23 at 0630 0900 (New Bag - Provider: Nely Lambert, CAMILA)1100 (Stopped - Provider: Nely Lambert RN - Comment: ok to stop when eating and drinking) PRN Medication Order 10/03/2023 10/04/2023 10/05/2023 dextrose 5 % infusion 100 mL/hr, IntraVENous, PRN, Blood sugar less than 70mg/dL, Starting on Sat10/03/23 at 6, Start infusion following administration of dextrose 50% or glucagon. dextrose 50 % solution 12.5 g 12.5 g, IntraVENous, PRN, low blood sugar, Blood glucose less than 70 mg/dL and patient NOT ALERT or NPO., Starting on Sat10/03/23 at 6, If patient does not respond within 5 [...] have IV access., Starting on Sat10/03/23 at 6, After administration, attempt intravenous access and start D5W at 100 mL/hr. Repeat blood glucose in 15 minutes x2 and notify provider. glucose oral gel 15 g 15 g, Oral, As needed, low blood sugar, Starting on Sat10/03/23 at 6, If blood glucose less than 50 mg/dL [...] BE BASED ON THE PRIMARY CLINICAL RECORDS. [facility] [employer] [facility]. provides no warranty or guarantee of the accuracy or completeness of information in this document.
[2024-12-23 21:30] VITALS: BP 92/55; PULSE 71; RESP 17; O2SAT 98
[2024-12-23 22:00] VITALS: BP 119/57; PULSE 74; RESP 18; O2SAT 99
--- NOTE | 2024-12-23 22:06 | CT_ITS ---
PROCEDURE: BRAIN/HEAD WITHOUT CONTRAST 12/23/2024 REASON FOR EXAM: WEAKNESS TECHNIQUE: Procedure Code: CTBR Modality: CT Procedure: BRAIN/HEAD WITHOUT CONTRAST Coronal and Sagittal reconstruction series were provided. One or more dose reduction techniques were used (e.g., Automated exposure control, adjustment of the mA and/or kV according to patient size, use of iterative reconstruction technique. RADIATION DOSE SUMMARY: CTDlvol: 44 mGy DLP: 880 mGycm COMPARISON: 10/2024. FINDINGS: Moderate global parenchymal atrophy. Chronic microvascular ischemia. No evidence of acute hemorrhage or infarction. No extra-axial blood or fluid collections. Right centrum semiovale chronic infarction. Left maxillary sinus retention cysts. Partial left mastoid effusion. The calvarial vault and skull base are intact. CT/Brain/Head without Contrast IMPRESSION: No acute intracranial abnormality. Chronic and ancillary findings as above. Reading Location: [id number]
[2024-12-23 22:32] LABS: Hematocrit 33.7 % (40-54); Hemoglobin 10.3 g/dL (13.0-16.5); Immature Granulocytes Count 0.090 X10^3/uL (0.0-0.0); Mean Corp Hgb Conc 30.6 g/dL (32-36); Mean Corpuscular Volume 82.8 fL (80-94); Mean Platelet Vol. 10.1 fl (6.2-12.0); NRBC Flagged by Analyzer 0 % (0-5); POSITIVE MORPHOLOGY YES; Platelet Count 223 K/mm3 (150-450); RBC Distribution Width CV 21.0 % (11.6-14.6); RBC Distribution Width SD 62.6 fl (35.1-43.9); Red Blood Count 4.07 M/mm3 (4.6-6.2); White Blood Count 7.4 K/mm3 (4.4-11.0)
[2024-12-23 22:42] LABS: Differential Indicated SCAN CRITERIA MET
[2024-12-23 22:57] LABS: Mucous, Urine 0 SEEN /hpf (<or=2+)
[2024-12-23 22:59] LABS: Color, Urine Yellow (Yellow); Glucose, Dipstick 1000 mg/dl (Normal); Ketone-Dipstick Negative (Negative); Leukocyte Esterase-Dipstick 500 /ul (Negative); Nitrite-Dipstick Negative (Negative); Occult Blood-Urine 50 /ul (Negative); Protein-Dipstick 30 mg/dl (Negative); Specific Gravity, Urine 1.015 (1.002-1.030); Urine Bilirubin Dipstick Negative (Negative)
[2024-12-23 23:00] VITALS: BP 127/60; PULSE 72; RESP 19; O2SAT 98
[2024-12-23 23:05] LABS: Squamous Epithelial Cells - UA 10-25 SEEN /hpf (0-5)
[2024-12-23 23:06] LABS: Red Blood Cells-Urine 5-10 SEEN /hpf (0-5); Yeast-Urine 2+ /hpf (None Seen)
[2024-12-23 23:10] LABS: Anion Gap 15 (5-15); BUN 23 mg/dL (4-19); BUN/Creat Ratio 17.4 RATIO (10-20); Calcium,Total 9.2 mg/dL (7.6-11.0); Carbon Dioxide 24.8 mmol/L (21.0-32.0); Chloride 99 mmol/L (98-108); Estimated Creatinine Clearance 84.42 ml/min (50-250); Glucose 228 mg/dL (70-99); Magnesium 2.1 mg/dL (1.5-2.2); Potassium 3.5 mmol/L (3.3-5.1)
[2024-12-23 23:19] VITALS: BP 117/56; PULSE 76; RESP 18; TEMP 36.6; O2SAT 98
--- NOTE | 2024-12-23 23:49 | EX.ED.DYSGE1 ---
HPI History of Present Illness Chief Complaint: Neuro S/Sx Informant: patient and spouse/S.O. Narrative Narrative: Patient is a 59-year-old male with past medical history of insulin-dependent type 2 diabetes multiple TIAs for which he takes aspirin Brilinta and Eliquis as well as congestive heart failure and hypothyroidism. states that today the patient reported not feeling well and then she noticed that he had left-sided facial droop. She states that this occurred at roughly 8 PM. She states the symptoms lasted at most 20 minutes and then completely resolved. Patient and both report he has not had any recurrent neurologic symptoms since that time. Patient does state that he overall feels unwell but that there is been no fevers and he denies any cough congestion nausea vomiting diarrhea or dysuria. However because of his general unwell feeling as well as the changes that were consistent with TIA he presents for evaluation [facility] Medical History (Updated 12/24/24 @ 06:[address] Juan Diego Davis, DO) Current use of skilled nursing anticoagulation Chronic respiratory failure with hypoxia Paroxysmal atrial fibrillation Chronic respiratory failure Chronic ulcer of thigh with fat layer exposed Microalbuminuria due to type 2 diabetes mellitus Hypoxemia Rheumatoid factor positive Hyperlipidemia Elevated troponin 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 with hyperglycemia Renal insufficiency Interstitial lung disease Ischemic cerebrovascular accident (CVA) CHF (congestive heart failure) KIANNA (obstructive sleep apnea) Presence of insulin pump CKD (chronic kidney disease) Hypothyroidism Essential (primary) hypertension Diabetes Acute hypoxemic respiratory failure Chronic diastolic CHF (congestive heart failure) Obesity Exertional shortness of breath Iron deficiency anemia due to chronic blood loss Morbid obesity with BMI of 45.0-49.9, adult Atherosclerotic heart disease of eagle coronary artery without angina pectoris Mini stroke (~10/01/23) Peripheral vestibulopathy Cranial nerve disorder Polyneuropathy Wears glasses Depression Anxiety Cancer Thyroid disease Insulin dependent diabetes mellitus Arthritis History of renal disease Prostate disease Gastric reflux CPAP (continuous positive airway pressure) dependence Sleep apnea Shortness of breath on exertion History of echocardiogram History of stress test History of CHF (congestive heart failure) Cardiology follow-up encounter History of atrial fibrillation Neuropathy Multiple thyroid nodules Microalbuminuria Thyroid nodule Double vision Non-proliferative diabetic retinopathy KIANNA treated with BiPAP Vertigo Congestive heart failure (CHF) Low testosterone Carotid stenosis High cholesterol Vision loss of right eye Vision loss of left eye Anemia Non-smoker Atrial fibrillation Hypertension Polyneuropathy due to type 2 diabetes mellitus History of non-ST elevation myocardial infarction (NSTEMI) (03/28/20) TIA (transient ischemic attack) (2019) Hodgkin disease GERD (gastroesophageal reflux disease) BPH (benign prostatic hyperplasia) Anxiety and depression Morbid obesity with BMI of 45.0-49.9, adult Nephrolithiasis Diabetes mellitus, type II Home Medications ?Medication ?Instructions ?Recorded ?Last Taken ?Type tamsulosin 0.4 mg capsule 0.4 mg PO DAILY prostate 09/08/15 09/26/24 History duloxetine 60 mg capsule,delayed 60 mg PO DAILY depression 04/17/18 09/26/24 History release (Cymbalta) blood-glucose,legal administrative assistant,cont #1 ea 07/26/20 Unknown Rx (Dexcom G6 Food Sales Clerk) blood-glucose transmitter (Dexcom #1 ea 12/29/21 Unknown Rx G6 Transmitter device) infusion set for insulin pump 10/08/22 Unknown History insulin pump controller 10/08/22 Unknown History blood-glucose sensor (Dexcom G6 #1 ea 02/25/23 Unknown Rx Sensor device) insulin regular hum U-500 conc 500 75 unit (0.15 mL) continuous 11/11/23 09/26/24 Rx unit/mL subcutaneous soln (Humulin subcutaneous infusion DAILY blood R U-500 (Concentrated) Insulin) sugar #20 mL ferrous sulfate 325 mg (65 mg 325 mg PO DAILY anemia 03/02/24 09/26/24 History iron) tablet (Feosol) Held on 12/17/24. Instructions: RECIEVING INFUSIONS metoprolol succinate 100 mg 100 mg PO DAILY heart #90 tabs 03/27/24 09/26/24 Rx tablet,extended release 24 hr lisinopril 40 mg tablet 40 mg PO DAILY blood pressure 04/12/24 09/26/24 History pantoprazole 40 mg tablet,delayed 40 mg PO BID acid reflux #60 tabs 07/22/24 09/26/24 Rx release (Protonix) empagliflozin 25 mg tablet 25 mg PO DAILY diabetes #30 tabs 08/12/24 09/26/24 Rx (Jardiance) apixaban 5 mg tablet (Eliquis) 5 mg PO BID blood thinner #180 tabs 08/31/24 09/26/24 Rx buspirone 10 mg tablet 10 mg PO BID Anxiety 09/16/24 09/26/24 History fenofibrate 54 mg tablet 134 mg PO QDAY 10/27/24 Unknown History albuterol sulfate 2.5 mg/3 mL 2.5 mg inhalation Q4H PRN 11/25/24 Unknown History (0.083 %) solution for nebulization shortness of breath or wheezing levothyroxine 125 mcg tablet 125 mcg PO QDAY 11/25/24 Unknown History pirfenidone 267 mg tablet 801 mg PO TID breathing 11/25/24 Unknown History acetaminophen 500 mg tablet 1,000 mg (2 x 500 mg) PO Q8 PRN 11/28/24 Unknown Rx pain #0 tabs prednisone 10 mg tablet 10 mg PO DAILY #15 tabs 11/28/24 Unknown Rx hydrochlorothiazide 25 mg tablet 25 mg PO QAM 12/16/24 Unknown History oxycodone-acetaminophen 5 mg-325 1 tab PO TID PRN PRN pain 12/17/24 Unknown History mg tablet prednisone 5 mg tablet 5 mg PO DAILY 12/17/24 Unknown History rosuvastatin 40 mg tablet 40 mg PO DAILY 12/17/24 Unknown History sennosides 8.6 mg-docusate sodium 1 tab PO DAILY constipation 12/17/24 Unknown History 50 mg tablet (Senexon-S) ticagrelor 90 mg tablet 90 mg PO BID 12/17/24 Unknown History aspirin 81 mg chewable tablet 324 mg PO BREAKFAST 12/23/24 Unknown History cephalexin 500 mg capsule 500 mg PO TID 7 days #21 caps 12/23/24 Unknown Rx furosemide 40 mg tablet (Lasix) 80 mg PO QDAY diuretic 12/23/24 Unknown History Allergy/AdvReac Type Severity Reaction Status Date / Time metoclopramide HCl (From Allergy Severe Anaphylaxis Verified 12/23/24 20:31 Reglan) Family History Brother Heart disease Mother CVA (cerebral vascular accident) Hypertension Rheumatoid arthritis Father Diabetes Other Alcohol abuse ulcer disease Surgical History History of cardiac catheterization History of lymph node excision History of left heart catheterization (2009) Hx of nephrolithotomy with removal of calculi History of thoracentesis (2015) Social History (Updated 11/26/24 @ 13:29 by Deysi Kelly) household members: spouse and none pets and animals: Yes Smoking Status: Never smoker Electronic Cigarette Use: not used second hand exposure: No alcohol intake: never substance use type: does not use what type of physical activity do you participate in: none ROS ROS ED Constitutional Constitutional ED: Reports other Details: Positive generalized fatigue ; Denies chills or fever(s) Eyes Eyes: Denies change in vision ENT ENT ED: Denies rhinorrhea or sore throat Cardiovascular Cardiovascular: Denies chest pain Respiratory/Chest Respiratory/Chest: Denies cough or dyspnea Gastrointestinal Gastrointestinal: Denies abdominal pain, diarrhea, nausea or vomiting Genitourinary Genitourinary ED: Denies dysuria Musculoskeletal Musculoskeletal: Denies myalgias Integumentary Denies rash Neurologic Neurologic: Reports weakness; Denies headache(s) Hematologic/Lymphatic Hematologic/Lymphatic: Reports easy bleeding and easy bruising EXAM Physical Exam Const Vital Signs: 12/23/24 20:30 12/23/24 21:30 12/23/24 22:00 Temperature 97.9 F Temperature Source Oral Pulse Rate 76 71 74 Respiratory Rate 18 17 18 Blood Pressure 74/55 L 92/55 L 119/57 L Blood Pressure Mean 61 67 77 Pulse Ox 98 98 99 Oxygen Delivery Method Nasal Cannula Room Air Nasal Cannula Oxygen Flow Rate (L/min) 4 4 12/23/24 23:00 12/23/24 23:19 12/24/24 00:00 Temperature 98 F Temperature Source Oral Pulse Rate 72 76 84 Respiratory Rate 19 H 18 16 Blood Pressure 127/60 H 117/56 L 109/59 L Blood Pressure Mean 82 76 75 Pulse Ox 98 98 100 Oxygen Delivery Method Room Air Room Air Room Air Oxygen Flow Rate (L/min) 12/24/24 00:02 Temperature 98 F Temperature Source Pulse Rate 86 Respiratory Rate 15 Blood Pressure 105/59 L Blood Pressure Mean 74 Pulse Ox 99 Oxygen Delivery Method Oxygen Flow Rate (L/min) Positive well nourished, well developed and obese General Appearance ED: well developed and pallor Nutritional Appearance: obese HEENT HEENT Narrative: Normocephalic atraumatic No tongue or lip swelling no oral lesions no airway edema or compromise There is mild cobblestoning in the posterior pharynx consistent with sinus drainage; however no secondary findings to suggest infection Eyes PERRL and EOMs intact bilaterally General Eye ED: Negative for scleral icterus Neck supple and no JVD Neck Narrative: No nuchal rigidity or meningeal signs Resp normal respiratory effort Resp Narrative: Breath sounds are diminished throughout with diffuse rhonchi consistent with history of idiopathic pulmonary fibrosis No signs of respiratory distress Cardio regular rate and regular rhythm Rate: other Other Details: Radial and carotid pulses are equal and symmetric GI normal to inspection, nondistended, normoactive bowel sounds, non-tender, non-distended and no masses GI Narrative: No voluntary guarding or rigidity or pulsatile mass. No peritoneal signs. Auscultation: normoactive bowel sounds Palpation: soft Extremity Extremity Narrative: There is trace to +1 pitting edema to the bilateral lower extremities that is equal and symmetric Neuro oriented x3, CN's II-XII intact bilaterally and no sensory deficits noted Neuro Narrative: GCS of 15 Cranial nerves II through XII are grossly intact without focal neurologic deficit No pronator drift no dysmetria no truncal ataxia NIH stroke scale score of 0 Sensorium / Orientation: alert Motor Exam: strength 5/5 throughout Psych mental status grossly normal Skin no rashes or lesions noted Skin Narrative: Capillary fill is less than 3 seconds General Skin Exam: pallor; Negative for jaundice MDM MDM MDM Narrative Medical decision making narrative: Patient arrived to the ER awake and alert with spontaneous resolution of his neurologic symptoms. However his blood pressure was soft/low. The patient has known TIAs and his history is consistent with a repeat TIA. However he is on aspirin Brilinta and Eliquis and he has a normal neurologic exam at this time. Therefore there is no need to activate a stroke alert. I will obtain a head CT to ensure there is no secondary bleed or mass as the cause of his symptoms. However as he reports feeling unwell and his blood pressure is soft there is concern for an infection or potential sepsis. Patient does have paleness to his skin and it could be related to acute blood loss anemia or acute kidney injury. Therefore basic labs were obtained along with urine sample and viral swab. White count is normal there is no left shift. His hemoglobin is slightly down at 10 but chart review reveals this is chronic in nature. Creatinine is at baseline as well and there is no clinically significant electrolyte abnormality. TSH is within normal limits going against myxedema coma or thyroid dysfunction. Urine sample shows questionable infection as it does have bacteria and white blood cells but there is also skin cells present. At this time as he is a diabetic and technically immunosuppressed and he reports feeling unwell I would err on the side of caution and treat him for UTI but the urine also be sent for culture. At this time his blood pressure has improved he remains afebrile he is satting 98 to 100% on his normal oxygen. He has no also not had any further bouts of neurologic finding. As his recurrent TIAs are chronic and he is on medication for it there is no need for admission as he can simply continue the aspirin Brilinta and Plavix. As his workup today reveals no signs of acute blood loss anemia acute kidney injury or urosepsis I do not feel there is need for inpatient workup and he is otherwise safe for discharge with antibiotics. This plan of care was discussed with the patient and family and they are agreeable to it and therefore will be discharged at this time History & Record Review Discussion w/independent historian: Patient and Significant other Lab Data Attestation: I reviewed the patient's lab results. Labs: Laboratory Results - last 24 hr 12/23/24 12/23/24 12/23/24 21:49 22:15 22:50 WBC 7.4 RBC 4.07 L Hgb 10.3 L Hct 33.7 L MCV 82.8 MCH 25.3 L MCHC 30.6 L RDW Std Deviation 62.6 H RDW Coeff of Gavi 21.0 H Plt Count 223 MPV 10.1 Immature Gran % (Auto) 1.200 H Neut % (Auto) 68.6 Lymph % (Auto) 16.1 L [place] % (Auto) 10.4 H Eos % (Auto) 3.0 Baso % (Auto) 0.7 Absolute Neuts (auto) 5.1 Absolute Lymphs (auto) 1.19 Nucleated RBC % 0 Differential Comment SCANNED Platelet Estimate ADEQUATE Polychromasia 1+ Anisocytosis 2+ Target Cells RARE Tear Drop Cells RARE Ovalocytes 2+ Sodium 139 Potassium 3.5 Chloride 99 Carbon Dioxide 24.8 Anion Gap 15 BUN 23 H Creatinine 1.30 H Estim Creat Clear Calc 84.42 Est GFR (MDRD) Non-Af 63 BUN/Creatinine Ratio 17.4 Glucose 228 H Calcium 9.2 Magnesium 2.1 TSH 1.160 Urine Color Yellow Urine Clarity Turbid Urine pH 6.0 Ur Specific [place] 1.015 Urine Protein 30 H Urine Glucose (UA) 1000 H Urine Ketones Negative Urine Occult Blood 50 H Urine Nitrite Negative Urine Bilirubin Negative Urine Urobilinogen Normal Ur Leukocyte Esterase 500 H Urine RBC 5-10 SEEN Urine WBC >100 SEEN Ur Squamous Epith Cells 10-25 SEEN Urine Bacteria 2+ Urine Mucus 0 SEEN Urine Yeast 2+ Radiography Diagnostic Testing: Clinical Impression(s) from Imaging Studies Brain CT 12/23/24 22:06 IMPRESSION: No acute intracranial abnormality. Chronic and ancillary findings as above. Reading Location: [facility] Discharge Plan Triage Chief Complaint: Neuro S/Sx ED Provider: Juan Diego Davis Dx/Rx/DC Orders Clinical Impression: TIA (transient ischemic attack), UTI (urinary tract infection), Current use of skilled nursing anticoagulation, Diabetes mellitus, type II, Hypothyroidism, Idiopathic pulmonary fibrosis Instructions: Urinary Tract Infections in Men, TIA Dc Prescriptions: New cephalexin 500 mg capsule 500 mg PO TID 7 Days Qty: 21 0RF No Action (DME) Dexcom G6 Food Sales Clerk Misc See Rx Instructions .ROUTE .MEDSUPPLY Qty: 1 0RF Rx Instructions: As directed (DME) infusion set for insulin pump Infusion Set See Rx Instructions .Route Rx Instructions: As directed (DME) insulin pump controller Misc See Rx Instructions .Route Rx Instructions: As directed fenofibrate 54 mg tablet 134 mg PO QDAY albuterol sulfate 2.5 mg /3 mL (0.083 %) solution for nebulization 2.5 mg inhalation Q4H PRN (Reason: shortness of breath or wheezing) levothyroxine 125 mcg tablet 125 mcg PO QDAY pirfenidone 267 mg tablet 801 mg PO TID hydrochlorothiazide 25 mg tablet 25 mg PO QAM tamsulosin 0.4 MG capsule 0.4 mg PO DAILY duloxetine [Cymbalta] 60 MG capsule,delayed release(DR/EC) 60 mg PO DAILY buspirone 10 mg tablet 10 mg PO BID oxycodone-acetaminophen 5-325 mg tablet 1 tab PO TID PRN PRN (Reason: pain) sennosides-docusate sodium [Senexon-S] 8.6-50 mg tablet 1 tab PO DAILY prednisone 5 mg tablet 5 mg PO DAILY rosuvastatin 40 mg tablet 40 mg PO DAILY ticagrelor 90 mg tablet 90 mg PO BID ferrous sulfate [Feosol] 325 mg (65 mg iron) tablet 325 mg PO DAILY lisinopril 40 mg tablet 40 mg PO DAILY acetaminophen 500 mg Tablet 1,000 mg PO Q8 PRN (Reason: pain) Qty: 0 0RF prednisone 10 mg tablet 10 mg PO DAILY Qty: 15 0RF Rx Instructions: 4 tabs for 1 day, then 3 tabs for 3 days, then 2 tabs for 3 days, then resume your normal 15mg daily dosing. furosemide [Lasix] 40 mg tablet 80 mg PO QDAY Rx Instructions: Take extra 40 mg dose at 5 PM for increased leg swelling or weight gain 5 pounds in 1 week. aspirin 81 mg Tablet,Chewable 324 mg PO BREAKFAST (DME) Dexcom G6 Transmitter Device See Rx Instructions .ROUTE .MEDSUPPLY Qty: 1 3RF Rx Instructions: As directed (DME) Dexcom G6 Sensor Device See Rx Instructions .ROUTE .MEDSUPPLY Qty: 1 6RF Rx Instructions: As directed Humulin R U-500 (Conc) Insulin 500 unit/mL solution 75 unit continuous subcutaneous infusion DAILY Qty: 20 5RF Patient Comments: INSULIN PUMP; pt. states that he does bolus with meals based on pump's suggested dose; unsure of basal rate; pump is currently broken, to bring in new wiring in AM metoprolol succinate 100 mg tablet extended release 24 hr 100 mg PO DAILY Qty: 90 3RF pantoprazole [Protonix] 40 mg tablet,delayed release (DR/EC) 40 mg PO BID Qty: 60 3RF Jardiance 25 mg tablet 25 mg PO DAILY Qty: 30 5RF Eliquis 5 mg tablet 5 mg PO BID Qty: 180 3RF Primary Care Provider: Brandt Winter Referrals: Brandt Winter MD [Primary Care Provider, Family Practice] Activity Restrictions/Additional Instructions: Your history and exam is consistent with a transient ischemic attack but your CT reveals no sign of brain bleed or mass. Continue your Eliquis Brilinta and aspirin secondary to this history. Your workup today showed changes concerning for a urinary tract infection. Therefore please take the antibiotic as directed. If you have worsening of symptoms or any further concerns return to the ER for repeat evaluation. Print Language: Romanian Disposition Disposition: Home, Self Care Discharge Date/Time: 12/24/24 00:32
[2024-12-24] VITALS: BP 109/59; PULSE 84; RESP 16; O2SAT 100
[2024-12-24 00:02] VITALS: BP 105/59; PULSE 86; RESP 15; TEMP 36.6; O2SAT 99
[2024-12-24 00:21] LABS: Anisocytosis 2+; Differential Comment SCANNED; Polychromasia 1+
[2024-12-24 00:22] LABS: Target Cells RARE; Tear Drop Cell RARE
== END 2024-12-24 00:32 | disposition home or self-care (01) ==
PROVIDERS: Emergency Provider Emergency Medicine; PCP Family Medicine; Visit Provider Emergency Medicine
DX: N39.0 Urinary tract infection, site not specified (principal); J84.112 Idiopathic pulmonary fibrosis; I13.0 Hypertensive heart and chronic kidney disease with heart failure and stage 1 through stage 4 chronic kidney disease, or unspecified chronic kidney disease; I50.32 Chronic diastolic (congestive) heart failure; E11.22 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 with diabetic chronic kidney disease; E11.42 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 with diabetic polyneuropathy; E78.00 Pure hypercholesterolemia, unspecified; Z79.01 Long term (current) use of anticoagulants; E03.9 Hypothyroidism, unspecified; N18.9 Chronic kidney disease, unspecified; I25.10 Atherosclerotic heart disease of native coronary artery without angina pectoris; Z79.02 Long term (current) use of antithrombotics/antiplatelets; Z79.82 Long term (current) use of aspirin; R29.810 Facial weakness; Z86.73 Personal history of transient ischemic attack (TIA), and cerebral infarction without residual deficits; K21.9 Gastro-esophageal reflux disease without esophagitis; Z79.899 Other long term (current) drug therapy; D84.9 Immunodeficiency, unspecified
CPT/HCPCS: 70450; 80048; 81001; 83735; 84443; 85025; 87086; 87088; 87631; 96365; 99285; A4216

== ENCOUNTER → 2025-01-21 | Outpatient (CLI) | payer OTHER, SELFPAY ==
[2025-01-21 15:23] LABS: Color, Urine Yellow (Yellow); Glucose, Dipstick 1000 mg/dl (Normal); Ketone-Dipstick 5 mg/dl (Negative); Leukocyte Esterase-Dipstick 500 /ul (Negative); Nitrite-Dipstick Negative (Negative); Occult Blood-Urine 250 /ul (Negative); Protein-Dipstick 100 mg/dl (Negative); Specific Gravity, Urine 1.010 (1.002-1.030); Urine Bilirubin Dipstick Negative (Negative)
== END | disposition home or self-care (01) ==
LOC: LABSPEC 14:01
PROVIDERS: PCP Family Medicine; Visit Provider Family Medicine
DX: N39.0 Urinary tract infection, site not specified (principal)
CPT/HCPCS: 81002

== ENCOUNTER 2025-01-22 01:59 | Inpatient (IN) | payer OTHER, SELFPAY ==
[2025-01-22] VITALS (27 sets, daily range): BP systolic 99–172; BP diastolic 51–121; PULSE 76–123; RESP 12–42; TEMP 36.1–36.8; O2SAT 80–99; BMI 46.8; BMI 36.1
--- NOTE | 2025-01-22 02:05 | EKG12_ITS ---
Test Reason : DYSRHYTHMIA Blood Pressure : */* mmHG Vent. Rate : 112 BPM Atrial Rate : 112 BPM P-R Int : 148 ms QRS Dur : 108 ms QT Int : 362 ms P-R-T Axes : 27 -16 168 degrees QTcB Int : 494 ms Sinus tachycardia Left ventricular hypertrophy with repolarization abnormality ( R in aVL , Miguel product , Romhilt-Waggoner ) Inferior infarct (cited on or before 26-Nov-2024) Abnormal ECG Confirmed by GERRY BUSTAMANTE ([id number]), social media editor JULIAN COSTELLO ([id number]) on 01/25/2025 6:32:21 AM Referred By: Confirmed By: GERRY BUSTAMANTE
--- NOTE | 2025-01-22 02:07 | EDS_ITS ---
HPI History of Present Illness Chief Complaint: Shortness of Breath Informant: patient, spouse/S.O. and EMS Narrative Narrative: Patient is a 59-year-old male with a history of pulmonary fibrosis and CHF, presenting with dyspnea and respiratory distress via EMS. Patient is accompanied by his and EMS, who are supplementing history. - Reports increased dyspnea over the past few days. - Dyspnea is exacerbated by ambulation and has been present at rest all day today. - Denies fever, chest pain, hemoptysis, hematemesis, melena, or hematochezia. - Reports increased cough, but denies chest pain. - Denies abdominal pain. - Denies any new or worsening lower extremity edema now; reports "his feet were huge last week." - Dyspnea worsens when lying down. - Reports epistaxis today, better now; taking a blood thinner. - Taking Lasix 40 mg 1 tab twice daily, but reports minimal diuresis. states is able to take a third prn but he has not done that lately. - Under the care of a gold cutter at [facility] and a cistern room operator at this facility - Dr. Hanna. - On 8 L of supplemental O2 at home at baseline. EMS put him on CPAP en route after getting him no higher than 76% on high flow oxygen without it, and the patient states CPAP helped a little. [facility] Medical History Current use of terminologist anticoagulation Chronic respiratory failure with hypoxia Paroxysmal atrial fibrillation Chronic respiratory failure Chronic ulcer of thigh with fat layer exposed Microalbuminuria due to type 2 diabetes mellitus Hypoxemia Rheumatoid factor positive Hyperlipidemia Elevated troponin 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 with hyperglycemia Renal insufficiency Interstitial lung disease Ischemic cerebrovascular accident (CVA) CHF (congestive heart failure) KIANNA (obstructive sleep apnea) Presence of insulin pump CKD (chronic kidney disease) Hypothyroidism Essential (primary) hypertension Diabetes Acute hypoxemic respiratory failure Chronic diastolic CHF (congestive heart failure) Obesity Exertional shortness of breath Iron deficiency anemia due to chronic blood loss Morbid obesity with BMI of 45.0-49.9, adult Atherosclerotic heart disease of [place] coronary artery without angina pectoris Mini stroke (~10/01/23) Peripheral vestibulopathy Cranial nerve disorder Polyneuropathy Wears glasses Depression Anxiety Cancer Thyroid disease Insulin dependent diabetes mellitus Arthritis History of renal disease Prostate disease Gastric reflux CPAP (continuous positive airway pressure) dependence Sleep apnea Shortness of breath on exertion History of echocardiogram History of stress test History of CHF (congestive heart failure) Cardiology follow-up encounter History of atrial fibrillation Neuropathy Multiple thyroid nodules Microalbuminuria Thyroid nodule Double vision Non-proliferative diabetic retinopathy KIANNA treated with BiPAP Vertigo Congestive heart failure (CHF) Low testosterone Carotid stenosis High cholesterol Vision loss of right eye Vision loss of left eye Anemia Non-smoker Atrial fibrillation Hypertension Polyneuropathy due to type 2 diabetes mellitus History of non-ST elevation myocardial infarction (NSTEMI) (03/28/20) TIA (transient ischemic attack) (2018) Hodgkin disease GERD (gastroesophageal reflux disease) BPH (benign prostatic hyperplasia) Anxiety and depression Morbid obesity with BMI of 45.0-49.9, adult Nephrolithiasis Diabetes mellitus, type II Home Medications Medication Instructions Recorded Last Taken Type tamsulosin 0.4 mg capsule 0.4 mg PO DAILY prostate 12/1509/26/24 History duloxetine 60 mg capsule,delayed 60 mg PO DAILY depres wanda 04/17/18 09/26/24 History release (Cymbalta) blood-glucose,refrigeration brazer/solderer,cont #1 ea 07/26/20 Unknown Rx (Dexcom G6 Terminologist) blood-glucose transmitter (Dexcom #1 ea 12/29/21 Unkno wn Rx G6 Transmitter device) infusion set for insulin pump 10/08/22 Unknown Histor y insulin pump controller 10/08/22 Unknown History blood-glucose sensor (Dexcom G6 #1 ea 02/25/23 Unknown Rx Sensor device) insulin regular hum U-500 conc 500 75 unit (0.15 mL) c ontinuous 11/11/23 09/26/24 Rx unit/mL subcutaneous soln (Humulin subcutaneous infusi on DAILY blood R U-500 (Concentrated) Insulin) sugar #20 mL metoprolol succinate 100 mg 100 mg PO DAILY heart #90 tabs 03/27/24 09/26/24 Rx tablet,extended release 24 hr lisinopril 40 mg tablet 40 mg PO DAILY blood pressur e 04/12/24 09/26/24 History pantoprazole 40 mg tablet,delayed 40 mg PO BID acid re flux #60 tabs 07/22/24 09/26/24 Rx release (Protonix) empagliflozin 25 mg tablet 25 mg PO DAILY diabetes #30 tabs 08/12/24 09/26/24 Rx (Jardiance) apixaban 5 mg tablet (Eliquis) 5 mg PO BID blood thinn er #180 tabs 08/31/24 09/26/24 Rx fenofibrate 54 mg tablet 134 mg PO QDAY 10/27/24 Unkn own History albuterol sulfate 2.5 mg/3 mL 2.5 mg inhalation Q4H ND N 11/25/24 Unknown History (0.083 %) solution for nebulization shortness of breat h or wheezing levothyroxine 125 mcg tablet 125 mcg PO QDAY 11/25/24 Unknown History pirfenidone 267 mg tablet 801 mg PO TID breathing 10/31 10/23 Unknown History acetaminophen 500 mg tablet 1,000 mg (2 x 500 mg) PO Q 8 PRN 11/28/24 Unknown Rx pain #0 tabs oxycodone-acetaminophen 5 mg-325 1 tab PO TID PRN PRN pain 12/17/24 Unknown History mg tablet rosuvastatin 40 mg tablet 40 mg PO DAILY 12/17/24 Unkn own History sennosides 8.6 mg-docusate sodium 1 tab PO DAILY const ipation 12/17/24 Unknown History 50 mg tablet (Senexon-S) ticagrelor 90 mg tablet 90 mg PO BID 12/17/24 Unknow n History aspirin 81 mg chewable tablet 324 mg PO BREAKFAST 12/01 07/24 Unknown History furosemide 40 mg tablet (Lasix) 80 mg PO DAILY diureti c 12/23/24 Unknown History atorvastatin 80 mg tablet (Lipitor) 80 mg PO QHS 01/12 Unknown History buspirone 10 mg tablet 10 mg PO TID Anxiety 5 Unknown History duloxetine 40 mg capsule,delayed 40 mg PO QDAY 5 Unknown History release oxybutynin chloride 5 mg tablet 5 mg PO BID PRN bladde r spasms 01/12/25 Unknown History alprazolam 0.5 mg tablet 0.5 mg PO TID PRN anxiety Unknown History furosemide 40 mg tablet (Lasix) 40 mg PO 1500 PRN carla a 01/22/25 Unknown History Allergy/AdvReac Type Severity Reaction Status Date / Time metoclopramide HCl (From Allergy Severe Anaphylaxis Verified 01/22/25 02:00 Sara) Family History Brother Heart disease Mother CVA (cerebral vascular accident) Hypertension Rheumatoid arthritis Father Diabetes Other Alcohol abuse ulcer disease Surgical History History of cardiac catheterization History of lymph node excision History of left heart catheterization (2009) Hx of nephrolithotomy with removal of calculi History of thoracentesis (2015) Social History household members: spouse and none pets and animals: Yes Smoking Status: Never smoker Electronic Cigarette Use: not used second hand exposure: No alcohol intake: never substance use type: does not use what type of physical activity do you participate in: none ROS ROS ED Constitutional Constitutional ED: Denies chills or fever(s) Eyes Eyes: Denies change in vision or diplopia ENT ENT ED: Denies rhinorrhea or sore throat Cardiovascular Cardiovascular: Reports orthopnea and other Details: Bilateral leg edema no worse than usual ; Denies chest pain or palpitations Respiratory/Chest Respiratory/Chest: Reports cough, dyspnea and orthopnea; Denies sputum Gastrointestinal Gastrointestinal: Denies abdominal pain, diarrhea, hematochezia, melena, nausea or vomiting Genitourinary Genitourinary ED: Denies dysuria or hematuria Musculoskeletal Musculoskeletal: Denies back pain or neck pain Integumentary Denies abscess or rash Neurologic Neurologic: Denies headache(s), paresthesias or weakness Psychiatric Psychiatric: Denies anxiety or suicidal thoughts EXAM Physical Exam Const Vital Signs: 01/22/25 02:00 01/22/25 02:02 01/22/25 02:16 Temperature 98.3 F Temperature Source Temporal Pulse Rate 113 H 115 H Respiratory Rate 26 H 31 H Respiratory Effort Respiratory Depth Respiratory Pattern Tachypnea Blood Pressure 142/84 H Blood Pressure Mean 103 Pulse Ox 98 98 Oxygen Delivery Method Bi-pap Fraction of Inspired Oxygen (FIO2) 100 01/22/25 02:25 01/22/25 02:30 01/22/25 02:39 Temperature Temperature Source Pulse Rate 107 H 108 H Respiratory Rate 28 H 26 H Respiratory Effort Short of Breath Respiratory Depth Shallow Respiratory Pattern Tachypnea Tachypnea Blood Pressure 124/61 H Blood Pressure Mean 82 Pulse Ox 92 Oxygen Delivery Method Bi-pap Bi-pap Fraction of Inspired Oxygen (FIO2) 50 50 01/22/25 03:00 01/22/25 03:30 Temperature Temperature Source Pulse Rate 106 H 104 H Respiratory Rate 26 H 22 H Respiratory Effort Respiratory Depth Respiratory Pattern Blood Pressure 124/63 H 129/86 H Blood Pressure Mean 83 100 Pulse Ox 92 93 Oxygen Delivery Method Bi-pap Bi-pap Fraction of Inspired Oxygen (FIO2) 50 50 Positive well nourished, well developed and obese Constitutional Narrative: Mild respiratory distress General Appearance ED: well developed Nutritional Appearance: obese HEENT Reports moist mucous membranes normocephalic and atraumatic Eyes PERRL and EOMs intact bilaterally Neck full ROM and supple Resp Resp Narrative: Bibasilar high-pitched rhonchi otherwise clear and equal. Mild respiratory distress. Cardio regular rate, regular rhythm and no murmurs Rate: tachycardic GI non-tender and non-distended Auscultation: normoactive bowel sounds Palpation: soft Back/Spine no CVA tenderness General Back: other FROM Extremity normal to inspection General Extremety ED: Yes edema; Negative for pulses abnormal or tenderness General Extremity: edema bilateral lower extremity Details: moderate; Negative for pulses abnormal Neuro oriented x3, CN's II-XII intact bilaterally and no sensory deficits noted Sensorium / Orientation: awake and alert Motor Exam: strength 5/5 throughout Psych mental status grossly normal Skin no rashes or lesions noted and no wounds MDM MDM MDM Narrative Medical decision making narrative: The patient is in mild respiratory distress but has relatively stable vital signs on CPAP. We transitioned him to BiPAP, and he did well. We monitored him while evaluating possible etiologies for his dyspnea, including pulmonary fibrosis, CHF, pneumonia, or pneumothorax, or a combination of these. The EKG is consistent with left ventricular strain, but I do not see evidence of an acute STEMI. His ABG is reassuring, showing a pH of 7.46, a PCO2 of 32, a PO2 of 55.6, and a bicarbonate of 23. He is oxygenating well on 8 liters bled into BiPAP. A 1 view portable chest x-ray, on my interpretation, appears to show diffuse pulmonary edema or pulmonary fibrosis, or both. It is difficult to differentiate, even when compared with prior x-rays, which were already abnormal. The current x-ray looks worse than his baseline. His labs show a slightly elevated troponin at 56 and a slightly elevated NT- proBNP at 4,221, with normal renal function. He has anemia at 8.0, which is lower than usual, and a slight leukocytosis at 14.1 with 1% bands. I do not believe this is likely infectious in etiology; the leukocytosis may be due to demargination and stress from hypoxia and dyspnea, and I suspect the elevated troponin is due to the same factors. On BiPAP, Lasix, and oxygen, his vital signs are normal, he is breathing much better, and he is comfortable. The plan is admission to the ICU for further evaluation. It is noted that he had an echocardiogram in August that was essentially normal, with a normal EF and no signs of valvular insufficiencies. Given these findings, non-cardiogenic pulmonary edema is also in the differential diagnosis. An hour after receiving Lasix IV 40 mg, he does not feel the need to urinate and he has not provided any urine yet, so I am giving him another 40 mg. History & Record Review Additional record(s) reviewed:: Prior outpatient record (echo, last cardiology outpt visit) Lab Data Attestation: I reviewed the patient's lab results. Labs: Laboratory Results - last 24 hr 01/22/25 02:22 WBC 14.1 H RBC 3.13 L Hgb 8.0 L Hct 26.5 L MCV 84.7 MCH 25.6 L MCHC 30.2 L RDW Std Deviation 59.4 H RDW Coeff of Gavi 19.6 H Plt Count 251 MPV 9.3 Immature Gran % (Auto) 1.000 H Neut % (Auto) 80.0 H Lymph % (Auto) 8.0 L Mcpherson % (Auto) 9.9 Eos % (Auto) 0.6 Baso % (Auto) 0.5 Absolute Neuts (auto) 11.3 H Absolute Lymphs (auto) 1.13 Nucleated RBC % 0.2 Sodium 137 Potassium 3.5 Chloride 100 Carbon Dioxide 21.2 Anion Gap 16 H BUN 15 Creatinine 0.96 Estim Creat Clear Calc 114.32 Est GFR (MDRD) Non-Af 90 BUN/Creatinine Ratio 15.8 Glucose 132 H Calcium 8.8 Troponin T High Sens 56 H* NT pro BNP II 4221 H ABG Data ABG results: ABG 01/22/25 02:20 Specimen Type ART Sample Site R Radial pH 7.46 H Bicarbonate Actual 23.0 Total CO2 24 Base Excess -1 O2 Saturation 91 L O2 % 60.0 ABG pCO2 32.3 L ABG pO2 56 L Brennon Test Positive Respiration Rate 12 O2 Delivery Device BiPAP Vent Mode Not entered Clinical Comments 16. 10. 60% Rhythm Strip Rhythm Strip: Sinus Tach Rate: 111 Ectopy: None EKG Initial EKG: Attestation: I personally reviewed and interpreted this EKG as follows: Interpretation: No Acute Injury Pattern, Sinus Tachycardia and S-T Depression (1, aVL with slightly different morphology than prior EKG but depressions preexistent possibly due to strain) Management Discussion w/another healthcare provider: Hospitalist Critical Care Time Critical Care Time: Yes Critical care time (excluding procedures): 30-74 minutes (36), Including time spent:, Discussing w/Patient &/or Family/Carpet Sewing Machine Operator, Discussing w/Consultants, Arranging Admission or Transfer and Performing Direct Patient Care at Bedside Discharge Plan Dx/Rx/DC Orders Clinical Impression: Acute on chronic respiratory failure with hypoxemia, Elevated troponin, Chronic diastolic CHF (congestive heart failure), Leukocytosis, Anemia, Interstitial lung disease, Anticoagulated on apixaban Disposition Disposition: Acute Care [facility]
[2025-01-22 02:24] LABS: Allen Test Positive; Base Excess -1 mmol/L (-2 to +2); Comment 16. 10. 60%; FI02 60.0; PO2 56 mmHG (75-100); RR 12; SITE R Radial; SO2 91 % (94-98)
[2025-01-22 02:29] LABS: Hematocrit 26.5 % (40-54); Hemoglobin 8.0 g/dL (13.0-16.5); Immature Granulocytes Count 0.140 X10^3/uL (0.0-0.0); Mean Corp Hgb Conc 30.2 g/dL (32-36); Mean Corpuscular Volume 84.7 fL (80-94); Mean Platelet Vol. 9.3 fl (6.2-12.0); NRBC Flagged by Analyzer 0.2 % (0-5); Platelet Count 251 K/mm3 (150-450); RBC Distribution Width CV 19.6 % (11.6-14.6); RBC Distribution Width SD 59.4 fl (35.1-43.9); Red Blood Count 3.13 M/mm3 (4.6-6.2); White Blood Count 14.1 K/mm3 (4.4-11.0)
--- NOTE | 2025-01-22 02:50 | RAD_ITS ---
PROCEDURE: CHEST 1 VIEW (PORTABLE) 01/22/2025 REASON FOR EXAM: SOB TECHNIQUE: Frontal view of the chest. COMPARISON: CT scan of the chest on 01/22/2025. FINDINGS: Unchanged chronic interstitial pulmonary thickening. Unchanged bilateral widespread pulmonary infiltrates, possibly presenting alveolitis from active interstitial lung disease and/or superimposed pneumonia. There is no demonstrated pleural abnormality. Enlarged cardiac silhouette. Normal mediastinum and darrel. Normal visualized pulmonary arteries. Atheromatous plaques of the visualized aortic arch and descending thoracic aorta. Diffuse spondylosis of the visualized thoracic spine. Normal visualized ribs, clavicles. Degenerative joint disease. There is no demonstrated abnormality of the visualized soft tissue structures of the upper abdomen. RAD/Chest 1 View (Portable) IMPRESSION: Unchanged chronic interstitial pulmonary thickening. Unchanged bilateral widespread pulmonary infiltrates, possibly presenting alveo litis from active interstitial lung disease and/or superimposed pneumonia. There is no demonstrated pleural abnormality. Enlarged cardiac silhouette. Reading Location: [facility]
--- OUTSIDE RECORDS SUMMARY | 2025-01-22 02:53 | XMS RPT_ITS | CCD ---
Author Organization [facility] Care Team Providers Care Bead Wire Taper Name Role Phone Radha Khan Primary Care [...] Provider Dr. Krunal Pate Other Provider JING Chin NPC Linda Attending Provider Dr. Radha Khan Primary Care Provider Dr. Radha Khan Referring Provider Asya ANG, PITO Jackson Attending Provider PITO Gerardo Attending Provider [phone] Jonathon Salas Attending Provider Dr. Jonathon Salas Other Provider Dr. Fran Rodriguez Attending Provider Dr. Radha Khan Primary Care Provider Dr. Radha Khan Referring Provider Dr. Jonathon Salas Referring Provider Roof BUTANE COMPRESSOR OPERATOR, PITO Jackson Attending Provider Dr. Radha Khan Primary Care Provider Dr. Radha Khan Referring Provider PITO Gerardo Attending Provider Roof BUTANE COMPRESSOR OPERATOR, SAV-Surinder Jackson Attending Provider [place] BUTANE COMPRESSOR OPERATOR, SAV-Surinder Childress Attending Provider Dr. Radha Khan [...] Attending Provider Dr. Karol Rushing Attending Provider [facility] BUTANE COMPRESSOR OPERATORPITO Attending Provider Dr. Toni Vann Attending Provider [...] Care Provider Dr. Radha Khan Referring Provider [facility] BUTANE COMPRESSOR OPERATORPITO Attending Provider Dr. Karol Rushing Attending Provider Dr. Toni Vann Attending Provider Dr. Karol Rushing Other Provider TUNDE Zimmerman-Surinder Moser Referring Provider RON Zimmerman Other Provider Dr. Francois Valiente Attending Provider Dr. Francois Valiente Referring Provider SAV Gerardo-C Jessica Attending Provider Dr. Radha Khan Primary Care Provider Dr. Radha Khan Referring Provider [facility] BUTANE COMPRESSOR OPERATOR, BUTANE COMPRESSOR OPERATOR-C Oren Jackson Attending Provider Dr. Ochoa Dobbs Attending Provider BILL MCRAE, DR GARCIA Primary Care Physician Radha Khan Primary Care Provider [facility] [employer]AC[employer] MEMBER-CARRIAGE SETTERCHITO Referring Unavailable [facility] FAC[employer] MEMBER-CARRIAGE SETTER, CHITO Nuñez Attending Unavailable CHITRA DUKESN-CARRIAGE SETTER, CHITO Nuñez Admitting Unavailable ERNESTO MCRAE, [facility] Consulting Unavailable DR RADHA KHAN MD Primary Care Unavailable Juventino MCRAE, Suzy Unavailable Unavailable Primary Care Provider Unavailstuart Khan MD, Radha Melendez Primary Care Provider [phone] NEREIDA, MAROUN Referring Unavailable NEREIDA, MAROUN Referring Unavailable JOLLRADHA FULLER Primary Care Unavailable NEREIDA, MAROUN Referring Unavailable JORADHA CAGLE Primary Care Unavailable NEREIDA, MAROUN Referring Unavailable RADHA KHAN Primary Care Unavailable Dr. Radha Khan MD Primary Care Provider Dr. Luli Alex DO Referring Provider Dr. Luli Alex DO Emergency Provider Dr. Eduin Ospina MD Admit Provider Unavailable Dr. Eduin Ospina MD Other Provider Unavailable Ryder MCRAE, Dr. Norwood Attending Provider Monico MCRAE, Dr. Hall Other Provider Dr. Andrea Murphy MD Other Provider Dr. Jonathon Salas MD Other Provider Michael PUTNAM, Dr. Peters Other Provider Brynn MCRAE, Dr. Eduin Duarte Other Provider [phone] Aneta MCRAE, Dr. Bermudez Other Provider Payton MCRAE, Dr. Taylor Other Provider [phone] Magdaleno MCRAE, Dr. Arnold Other Provider Robert MCRAE, Dr. Lopez Other Provider Javy MCRAE, Dr. Perdomo Other Provider [phone] Yvan MCRAE, Dr. Adamson Other Provider Jose MCRAE, Dr. Myles Other Provider Harriet MCRAE, Dr. Yeager Other Provider Unavailabl adam Valentine MD, Dr. Amin Other Provider Gavi MCRAE, Dr. Gilliam Other Provider [phone] Sim MCRAE, Dr. Menchaca Other Provider Felice PUTNAM, Dr. Lugo Other Provider [phone] Bernice MCRAE, Dr. Huber Other Provider [phone] Kae MCRAE, Dr. Gary Other Provider [phone] Jose PUTNAM, Dr. Desir Other Provider Hiro MCRAE, Dr. Reyes Other Provider Horacio MCRAE, Dr. Hernandez Other Provider Ryder MCRAE, Dr. Norwood Other Provider Dr. Fran Rodriguez DO Attending Provider Bill MCRAE, Dr. Radha Mcmahon Referring Provider Mari BUTANE COMPRESSOR OPERATOR-CJessica Attending Provider Bob BUTANE COMPRESSOR OPERATOR-C, Chen Nuñez Attending Provider Dr. Radha Khan [...] Provider Nancy MCRAE, Dr. Muñoz Attending Provider [phone] Dr. Toni Vann MD Referring Provider Dr. Sumanth Hanna MD Attending Provider Dilia MCRAE, Dr. Packer Attending Provider Tamika MCRAE, Dr. Veras Attending Provider Tamika MCRAE, Dr. Veras Referring Provider Colton PA, Lydia M Attending Provider Lydia Jiménez Referring Provider Bob BUTANE COMPRESSOR OPERATOR-C, Chen M Referring Provider Sumanth Hanna MD Attending [...] Dr. Sumanth Hanna MD Attending Provider Bob BUTANE COMPRESSOR OPERATOR-CChen Attending Provider Bob BUTANE COMPRESSOR OPERATOR-CChen M Referring Provider Dr. Toni Vann MD Attending Provider [phone] Dr. Toni Vann MD Referring Provider Sumanth Hanna MD Attending Provider Unavailable Brandt Winter MD Primary Care Provider Erik PA Khadar Attending Provider Erik GRIFFITHS Khadar Referring Provider Mari BUTANE COMPRESSOR OPERATOR-CJessica Attending Provider Norma MCRAE, Brandt Referring Provider Bill MCRAE, Dr. Radha Mcmahon Primary Care Provider Bill MCRAE, Dr. Radha Mcmahon Referring Provider Sadi MCRAE, Dr. Ortiz Referring Provider Sadi MCRAE, Dr. Ortiz Emergency Provider Yash MCRAE, Dr. Hagen Admit Provider Yash MCRAE, Dr. Hagen Attending Provider Bill MCRAE, Dr. Radha Mcmahon Primary Care Provider Bob BUTANE COMPRESSOR OPERATOR-C, Chen Nuñez Attending Provider Nancy MCRAE, Dr. Muñoz Attending Provider Nancy MCRAE, Dr. Muñoz Referring Provider Bill MCRAE, Dr. Radha Mcmahon Referring Provider Mari BUTANE COMPRESSOR OPERATOR-CJessica Attending Provider Norma MCRAE, Brandt Referring Provider [...] Provider Loy MCRAE, Dr. Ayala Other Provider [phone] Yani MCRAE, Dr. Mondragon Other Provider [...] Dr. Guillen Other Provider Unavailable [facility] Other Provider Unavailable Dr. Karina Benítez DO [...] Referring Provider Brandt Winter MD Attending Provider Dr. Toni Vann MD Other Provider Mari BUTANE COMPRESSOR OPERATOR-C, Jessica Other Provider Colton GRIFFITHS, Lydia Nuñez Other Provider Dr. Karina Benítez DO Referring Provider Lydia Jiménez Attending Provider Esmer PUTNAM, Dr. Collins Referring Provider Tamika MCRAE, Dr. Veras Attending Provider Dr. Rito Lundberg MD Referring Provider Bill MCRAE, Dr. Radha Mcmahon Primary Care Provider Dr. Toni Vann MD Attending Provider Dr. Toni Vann MD Referring Provider Esmer PUTNAM, Dr. Collins Referring Provider Esmer PUTNAM, Dr. Collins Referring Provider Bob ANG-C, Chen Nuñez Attending Provider Juan MCRAE, Dr. Moffett Emergency Provider Unavailab le Alex PUTNAM, Dr. Packer Admit Provider Alex PUTNAM, Dr. Packer Attending Provider Alex PUTNAM, Dr. Packer Other Provider Bill MCRAE, Dr. Radha Mcmahon Referring Provider Dr. Toni Vann MD Attending Provider Norma MCRAE, Brandt Primary Care Provider Dr. Toni Vann MD Referring Provider Dr. Rito Lundberg MD Attending Provider Dr. Radha Khan MD Primary Care Provider Dr. Rito Lundberg MD Referring Provider Dr. Toni Vann MD Attending Physician Norma MCRAE, Brandt Primary Care Physician Mari ANG-Jessica Cadena Attending Physician Sadi MCRAE, Dr. Ortiz Emergency Department Physician Yash MCRAE, Dr. Hagen Admitting Physician Yash MCRAE, Dr. Hagen Attending Physician Yash MCRAE, Dr. Hagen Nurse Practitioner Yissel MCRAE, Edmund Nurse Practitioner Unavailable Deb MCRAE, Dr. Foster Nurse Practitioner Julia MCRAE, Amy Nurse Practitioner Unavailab francisco Velasco DO, Dr. Sims Nurse Practitioner Loy MCRAE, Dr. Ayala Nurse Practitioner [phone] Yani MCRAE, Dr. Mondragon Nurse Practitioner Wm MCRAE, Dr. Acharya Nurse Practitioner Tejas MCRAE, Dr. Ruano Nurse Practitioner Mark MCRAE, Dr. Gregg Nurse Practitioner Nitish MCRAE, Dr. Ibarra Nurse Practitioner Paris MCRAE, Jennifer Nurse Practitioner Maria Elena MCRAE, Dr. Shepherd Nurse Practitioner Bharathi MCRAE, Dr. Cid Nurse Practitioner Serena MCRAE, Dr. Martinez Nurse Practitioner Aminata MCRAE, Dr. Indigo Knapp Nurse Practitioner Palmer MCRAE, Dr. Valderrama Nurse Practitioner Una MCRAE, Dr. Mccloud Nurse Practitioner [phone] Darci MCRAE, Dr. Gauthier Nurse Practitioner Esmer MCRAE, Dr. Guillen Nurse Practitioner Unavailabl adam Riley MD, [facility] Nurse Practitioner Unavailstuart Benítez DO, Dr. Collins Attending Physician Dr. Karina Benítez DO Nurse Practitioner Karma MCRAE, Dr. Smith Attending Physician Brandt Winter MD Attending Physician Nancy MCRAE, Dr. Muñoz Nurse Practitioner [phone] Mari BUTANE COMPRESSOR OPERATOR-C, Jessica Nurse Practitioner Lydia Jiménez Nurse Practitioner Bill MCRAE, Dr. Radha Mcmahon Referring Provider Lydia Jiménez Attending Physician Tamika MCRAE, Dr. Veras Attending Physician Bob BUTANE COMPRESSOR OPERATOR-C, Chen Nuñez Attending Physician Juan MCRAE, Dr. Moffett Emergency Department Physici an Unavailable Alex PUTNAM, Dr. Packer Admitting Physician Alex PUTNAM, Dr. Packer Attending Physician Alex PUTNAM, Dr. Packer Nurse Practitioner Bill MCRAE, Dr. Radha Mcmahon Primary Care Physician Joanie Neil Attending Physician Unavailable Mary MCRAE, Dr. Amador Attending Physician Mary MCRAE, Dr. Amador Nurse Practitioner Ryan PUTNAM, Dr. Adamson Attending Physician Dr. Juan Diego Davis DO Emergency Department Physic karlos JOSHUAIZEBOZENAS, OZIEL Attending Unavailable JOLLIFF, RADHA Primary Care Unavailable JUVENTINO, SUZY Attending Unavailable JOLLIFF, RADHA Primary Care Unavailable BOSZ, MEY Attending Unavailable BOSZ, MEY Referring Unavailable JOLLIFF, RADHA Primary Care Unavailable VENIZELOS, OZIEL Attending Unavailable VENIZELOS, OZIEL Referring Unavailable JOLLIFF, RADHA Primary Care Unavailable VENIZELOS, OZIEL Attending Unavailable VENIZELOS, OZIEL Referring Unavailable JOLLIFF, RADHA Primary Care Unavailable BOSZ, MEY Referring Unavailable JOLLIFF, RADHA Primary Care Unavailable VENIZELOS, OZIEL Attending Unavailable VENIZELOS, OZIEL Referring Unavailable JOLLIFF, RADHA Primary Care Unavailable JUVENTINO, SUZY Attending Unavailable JUVENTINO, SUZY Referring Unavailable JOLLIFF, RADHA Primary Care Unavailable NEREIDA, MAROUN Attending Unavailable [...] Primary Care Unavailable NEREIDA, MAROUN Attending Unavailable Jolliff, Radha S Primary Care Unavailable Tarun, Daniel Referring Unavailable White, Cookie L Consulting Unavailable Ochoa Johnson Attending Unavailable White, Cookie L Admitting Unavailable Jolliff, Radha S Primary Care Unavailable Tarun, Daniel Referring Unavailable White, Cookie L Consulting Unavailable White, Cookie L Admitting Unavailable White, Cookie L Attending Unavailable Jolliff, Radha S Primary Care Unavailable Ungur, Remus Referring Unavailable Eduin Ospina Consulting Unavailable Eduin Ospina Admitting Unavailable Ryder, Cuco Attending Unavailable Rafael Marc Consulting Unavailable Andrea Murphy Consulting Unavailable Jonathon Salas Consulting Unavailable Fran Rodriguez Consulting Unavailable Eduin Swain Consulting Unavailable Aidan Cornell Consulting Unavailable Brandon Cain Consulting Unavailable Catalina Dolan Consulting UnavailJohn Herrera Consulting Unavailable Conor Palafox Consulting Unavailable Juan Diego Santoro Consulting Unavailable Shameka Garcia Consulting Unavailable AlShobha botello Consulting Unavailable Meme, Brennan Consulting Unavailable Mane Gatica Consulting Unavailable Sim, Nikolai Consulting Unavailable Dhesi, Parish Consulting Unavailable Cecile Queen Consulting Unavailable Abdirahman Pal Consulting Unavailable Thang Garcia Consulting Unavailable Eric Bosch Consulting Unavailable David Leonard Consulting Unavailable Ryder, Cuco Consulting Unavailable Fran Rodriguez Attending Unavailable Jolliff, Radha S Primary Care Unavailable Toni Vann Referring Unavailable Toni Vann Attending Unavailable Jolliff, Radha S Primary Care Unavailable Jolliff, Radha S Referring Unavailable Yoni ANG, Fior Attending Unavailable Jolliff, Radha S Primary Care Unavailable Xiao Berrios Consulting Unavailable Xiao Berrios Admitting Unavailable Tereletsky, Krunal Referring Unavailable Fran Rodriguez Attending Unavailable Rafael Marc Consulting Unavailable Katherine, Andrea Consulting Unavailable Jonathon Salas Consulting Unavailable Fran Rodriguez Consulting Unavailable Eduni Swain Consulting Unavailable Aidan Cornell Consulting Unavailable Payton, Brandon Consulting Unavailable Habtemanuel, Catalina Consulting Unavailab le Dand, John Consulting Unavailable Conor Palafox Consulting Unavailable Shameka Garcia Consulting Unavailable Shobha Larios Consulting Unavailable MemeLaura ferrertam Consulting Unavailable Mane Gatica Consulting Unavailable Sim, Nikolai Consulting Unavailable Parish Viveros Consulting Unavailable Cecile Queen Consulting Unavailable Thang Garcia Consulting Unavailable Eric Bosch Consulting Unavailable David Leonard Consulting Unavailable Krunal Pate Consulting Unavailable Krunal Pate Attending Unavailable Norma, Chalon Primary Care Unavailable Kostaeri Ochoa Admitting Unavailable KostaeriOchoa Attending Unavailable Norma, Chalon Primary Care Unavailable Joanie Neil Attending Unavailable Jolliff, Radha S Primary Care Unavailable Sumanth Hanna Attending Unavailable Lydia Segura Referring Unavailabl e Jolliff, Radha S Referring Unavailable Chen Rojas Attending Unavailable Norma, Chalon Primary Care Unavailable Norma, Chalon Referring Unavailable Norma, Chalon Primary Care Unavailable Bo Mcelroy Attending Unavailable Jolliff, Radha S Primary Care Unavailable Berrios, Xiao Consulting Unavailable Berrios, Xiao Admitting Unavailable Berrios, Xiao Attending Unavailable Jolliff, Radha S Primary Care Unavailable Tia Boyd Attending Unavailabl e Jolliff, Radha S Primary Care Unavailable Jolliff, Radha S Referring Unavailable SeguraLydia gordon Attending Unavailabl e Jolliff, Radha S Primary Care Unavailable Jessica Gerardo Attending Unavailable Jolliff, Radha S Referring Unavailable Jolliff, Radha S Primary Care Unavailable Berrios, Xiao Admitting Unavailable Berrios, Xiao Consulting Unavailable Krunal Pate Attending Unavailable Rafael Marc Consulting Unavailable Katherine, Andrea Consulting Unavailable Jonathon Salas Consulting Unavailable Fran Rodriguez Consulting Unavailable Eduin Swain Consulting Unavailable Aidan Cornell Consulting Unavailable Payton, Brandon Consulting Unavailable Ninatemanuel, Catalina Consulting Unavailab le Dand, John Consulting Unavailable Palafox, Conor Consulting Unavailable Shameka Garcia Consulting Unavailable AlShobha botello Consulting Unavailable Brennan Valentine Consulting Unavailable Mane Gatica Consulting Unavailable Nikolai Montemayor Consulting Unavailable Parish Viveros Consulting Unavailable Cecile Queen Consulting Unavailable Thang Garcia Consulting Unavailable Eric Bosch Consulting Unavailable David Leonard Consulting Unavailable Jolliff, Radha S Primary Care Unavailable Yoni BUTANE COMPRESSOR OPERATOR, Fior Referring Unavailable Yoni BUTANE COMPRESSOR OPERATOR, Fior Attending Unavailable Jolliff, Radha S Referring Unavailable Jolliff, Radha S Primary Care Unavailable Ede Frost Attending Unavailable Norma, Chalon Referring Unavailable Norma, Chalon Primary Care Unavailable Mary Efewmarybe Consulting Unavailable AnthonyeGuerabe Attending Unavailable Jolliff, Radha S Referring Unavailable Jolliff, Radha S Primary Care Unavailable Ede Frost Attending Unavailable Ede Frost Consulting Unavailable Jolliff, Radha S Primary Care Unavailable Maria Eur, Toni Referring Unavailable DerikdourToni Attending Unavailable Jolliff, Radha S Referring Unavailable Jolliff, Radha S Primary Care Unavailable Chen Rojas Attending Unavailable Jolliff, Radha S Primary Care Unavailable Baddour, Toni Referring Unavailable BaddourToni Attending Unavailable Jolliff, Radha S Referring Unavailable Jolliff, Radha S Primary Care Unavailable Ochoa Dobbs Attending Unavailable Karina Benítez Attending Unavailable Norma, Chalon Primary Care Unavailable Xiao Berrios Admitting Unavailable Edmund Dey Consulting Unavailable Avtiia, Angel Referring Unavailable Adeli, Amir Consulting Unavailable Hinduja, Amy Consulting Unavailable Rod Bethany Consulting Unavailable Loy, Lucy Consulting Unavailable Yani, Giancarlo Consulting Unavailable [...] Berrios Consulting Unavailable Karina Benítez Consulting Unavailable Yissel, Edmund Consulting Unavailable Norma, Chalon Primary Care Unavailable Pamella Berriosge Attending Unavailable Berrios, Xiao Admitting Unavailable Avitia, Angel Referring Unavailable Adeli, Amir Consulting Unavailable Hinduja, Amy Consulting Unavailable Rod, Bethany Consulting Unavailable Zha, Lucy Consulting Unavailable Yani, Giancarlo Consulting Unavailable Wm, Patrizia Consulting Unavailable Bittar, Alden Consulting Unavailable Flores, Julius Consulting Unavailable Talbert, Fred Consulting Unavailable Besusan, Jennifer Consulting Unavailable Gusler, Joao Consulting Unavailable Bharathi, Palak Consulting Unavailable Ridha, Mohamed Consulting Unavailable Zajuniorloadh, Mhd Ra Consulting UnavailLavelle Gillespie Consulting Unavailable Heart, Rami Consulting Unavailable Darci, Abrahan Consulting Unavailable Esmer, Mindy Consulting Unavailable Hannasukhjinder, Galdinosef Consulting Unavailable Berrios, Xiao Consulting Unavailable Jolliff, Radha S Primary Care Unavailable Farn Rodriguez Attending Unavailable [place] BUTANE COMPRESSOR OPERATOR, Fior Referring Unavailable [place] BUTANE COMPRESSOR OPERATOR, Fior Consulting Unavailable Jolliff, Radha S Primary Care Unavailable Sumanth Hanna Attending Unavailable Jolliff, Radha S Primary Care Unavailable Fran Rodriguez Attending Unavailable [place] BUTANE COMPRESSOR OPERATOR, Fior Referring Unavailable Norma, Chalon Primary Care Unavailable Sarah Parada Attending Unavailable Jolliff, Radha S Primary Care Unavailable Jolliff, Radha S Referring Unavailable Ochoa Dobbs Attending Unavailable Fallon, Edmund Consulting Unavailable Norma, Chalon Primary Care Unavailable Berrios, Xiao Admitting Unavailable Avitia, Angel Referring Unavailable Karina Benítez Attending Unavailable Adeli, Amir Consulting Unavailable Hinduja, Amy Consulting Unavailable Rod, Bethany Consulting Unavailable Zha, Lucy Consulting Unavailable Yani, Giancarlo Consulting Unavailable Wm, Patrizia Consulting Unavailable Bittar, Alden Consulting Unavailable Flores, Julius Consulting Unavailable Nitish Fred Consulting Unavailable Besusan, Jennifer Consulting Unavailable Gusler, Joao Consulting Unavailable Bharathi, Palak Consulting Unavailable Ridha, Mohamed Consulting Unavailable Zaghlouleh, Mhd Ra Consulting UnavailLavelle Gillespie Consulting Unavailable Heart, Rami Consulting Unavailable Darci, Abrahan Consulting Unavailable Esmer, Mindy Consulting Unavailable Hannawi, Yousef Consulting Unavailable Berrios, Xiao Consulting Unavailable Yissel, Edmund Consulting Unavailable Jolliff, Radha S Primary Care Unavailable Tarun, Daniel Referring Unavailable Jopperi, Ochoa Attending Unavailable Cookie Bell Admitting Unavailable Adeli, Amir Consulting Unavailable Hinduja, Amy Consulting Unavailable Rod, Bethany Consulting Unavailable Zha, Lucy Consulting Unavailable Yani, Giancarlo Consulting Unavailable Wm, Patrizia Consulting Unavailable Bittar, Alden Consulting Unavailable Julius Flores Consulting Unavailable Fred Talbert Consulting Unavailable Jennifer Toledo Consulting Unavailable Joao Arredondo Consulting Unavailable Palak Garvin Consulting Unavailable Ridjuan, Michelle Consulting Unavailable Zajessica, Mhd Ra Consulting UnavailLavelle Gillespie Consulting Unavailable Heart, Ramfroylan Consulting Unavailable Darci, Abrahan Consulting Unavailable Mindy Benítez Consulting Unavailable Ryan Riley Consulting Unavailable WhiteCookie L Consulting Unavailable Jolliff, Radha S Primary Care Unavailable Chen Rojas Attending Unavailable Chen Rojas Referring Unavailable Jolliff, Radha S Primary Care Unavailable Yoni BUTANE COMPRESSOR OPERATOR, Fior Referring Unavailable Yoni BUTANE COMPRESSOR OPERATOR, Fior Attending Unavailable Norma, Chalon Primary Care Unavailable Juan Diego Davis Attending Unavailable Jolliff, Radha S Referring Unavailable Jolliff, Radha S Attending Unavailable Jolliff, Radha S Primary Care Unavailable Jolliff, Radha S Primary Care Unavailable Urban Garcia Attending Unavailable Jolliff, Radha S Referring Unavailable Jolliff, Radha S Attending Unavailable Jolliff, Radha S Primary Care Unavailable Norma, Chalon Primary Care Unavailable Norma, Chalon Referring Unavailable Norma, Chalon Attending Unavailable Norma, Chalon Primary Care Unavailable Norma, Chalon Referring Unavailable Norma, Chalon Attending Unavailable Norma, Chalon Primary Care Unavailable Toni Vann Consulting Unavailable Norma, Chalon Attending Unavailable Norma, Chalon Referring Unavailable Jessica Gerardo Consulting Unavailable Lydia Segura Consulting Unavailabl e Karina Benítez Referring Unavailable Karina Benítez Attending Unavailable Norma, Chalon Primary Care Unavailable Jolliff, Radha S Primary Care Unavailable Rito Lundberg Attending Unavailable DarianausRito Referring Unavailable Jolliff, Radha S Primary Care Unavailable Lydia Segura Referring Unavailabl Lydia Lee Attending Unavailabl e Fabiolaiff, Radha S Primary Care Unavailable Lydia Segura Referring Unavailabl Lydia Lee Attending Unavailabl e Cuco Soler Attending Unavailable Jolliff, Radha S Primary Care Unavailable Isai, Remus Referring Unavailable Eduin Ospina Consulting Unavailable Eduin Ospina Admitting Unavailable Rafael Marc Consulting Unavailable Andrea Murphy Consulting Unavailable Jonathon Salas Consulting Unavailable Fran Rodriguez Consulting Unavailable Eduin Swain Consulting Unavailable Aidan Cornell Consulting Unavailable Payton, Brandon Consulting Unavailable Catalina Dolan Consulting Unavailab John Gunter Consulting Unavailable Conor Palafox Consulting Unavailable Juan Diego Santoro Consulting Unavailable Shameka Garcia Consulting Unavailable Aljunmartha, Shobha Consulting Unavailable Meme, Brennan Consulting Unavailable IrMane akbar Consulting Unavailable Sim, Nikolai Consulting Unavailable DheKassandra espinozaParish Consulting Unavailable Cecile Queen Consulting Unavailable Abdirahman Pal Consulting Unavailable Thang Garcia Consulting Unavailable Eric Bosch Consulting Unavailable David Leonard Consulting Unavailable Jolliff, Radha S Referring Unavailable Jolliff, Radha S Primary Care Unavailable Chen Rojas Attending Unavailable Jolliff, Radha S Primary Care Unavailable Baddour, Toni Referring Unavailable Baddour, Toni Attending Unavailable Norma, Chalon Primary Care Unavailable Baddour, Toni Referring Unavailable Baddour, Toni Attending Unavailable Norma, Chalon Primary Care Unavailable Rito Lundberg Attending Unavailable Norma, Chalon Referring Unavailable Jolliff, Radha S Referring Unavailable Norma, Chalon Primary Care Unavailable Lydia Segura Attending Unavailabl e Norma, Chalon Primary Care Unavailable Norma, Chalon Referring Unavailable Baddour Toni Attending Unavailable Jessica Gerardo Attending Unavailable Norma, Chalon Referring Unavailable Norma, Chalon Primary Care Unavailable Baddour, Toni Referring Unavailable Baddour, Toni Attending Unavailable Norma, Chalon Primary Care Unavailable Jolliff, Radha S Referring Unavailable Baddour, Toni Attending Unavailable Norma, Chalon Primary Care Unavailable Jolliff, Radha S Referring Unavailable Jolliff, Radha S Primary Care Unavailable Sumanth Forte Attending Unavailable Jolliff, Radha S Primary Care Unavailable Baddour, Toni Referring Unavailable Baddour, Toni Attending Unavailable Jolliff, Radha S Referring Unavailable Jolliff, Radha S Primary Care Unavailable Rito Lundberg Attending Unavailable Jolliff, Radha S Referring Unavailable Jolliff, Radha S Primary Care Unavailable Lydia Segura Attending Unavailabl e Jolliff, Radha S Referring Unavailable Jolliff, Radha S Primary Care Unavailable Rito Lundberg Attending Unavailable Jolliff, Radha S Primary Care Unavailable Toni Vann Referring Unavailable Toni Vann Attending Unavailable Norma, Chalon Referring Unavailable Norma, Chalon Primary [facility] Unavailable Marjorie Hernandez Attending Unavailable Norma, Chalon Primary [facility] Unavailable Jopperi Ochoa Admitting Unavailable Jopperi Ochoa Attending Unavailable Jopperi Ochoa Consulting Unavailable Demiter Khadar Attending Unavailable Norma, Chalon Primary Care Unavailable Demiter, Khadar Referring Unavailable Norma, Chalon Referring Unavailable Norma, Chalon Primary Care Unavailable AnthonyeGuerabe Attending Unavailable Jolliff, Radha S Primary Care Unavailable Mireya Garcia Attending Unavailable JaylennasovMireya Referring Unavailable Norma, Chalon Primary Care Unavailable JopperiOchoa Attending Unavailable Jolliff, Radha S Referring Unavailable Jolliff, Radha S Primary Care Unavailable BaddourToni Attending Unavailable Eduin Ospina Attending Unavailable Norma, Chalon Primary Care Unavailable Chen Rojas Attending Unavailable Norma, Chalon Referring Unavailable Jolliff, Radha S Referring Unavailable Jolliff, Radha S Primary Care Unavailable AtanasovMireya Attending Unavailable Jolliff, Radha S Referring Unavailable Jolliff, Radha S Primary Care Unavailable Chen Rojas Attending Unavailable Jolliff, Radha S Referring Unavailable Jolliff, Radha S Primary Care Unavailable JacquesMedardoKeeler Attending Unavailable Allergies Allergy Classification Reported Allergen(s) Allergy Type Date of Onset Reaction(s) Facility DOPamine Antagonists (1 source) Metoclopramide; Translations: [metoclopramide] Drug Allergy [facility] (20 sources) Metoclopramide Drug Allergy 6 Shortness of Breath [facility] (20 sources) Metoclopramide; Translations: [METOCLOPRAMIDE] Drug Allergy 6 Anaphylaxis, Shortness of breath [facility] (1 source) Metoclopramide Drug Allergy 5 [facility] Repository Medications Current Medications Medication Drug Class(es) Dates Sig (Normalized) Sig (Original) acetaminophen 500 mg oral tablet (9 sources) Start: 11-28-2024 acetaminophen (Tylenol) 500 mg tablet 2 tablets (1,000 mg). 11/28/2024 Active Start: 11-28-2024 acetaminophen 325 mg / oxyCO DONE hydrochloride 5 mg oral tablet (20 sources) Opioid Agonist Start: 09-16-2024 End: 12-16-2024 Start: 09-16-2024 Oxycodone-Acet aminophen 5-325 mg tablet [...] 4:11pm take 1 tablet by ned th every six hours as needed for pain oxyCODONE-acetaminophen (Percocet) 5-325 MG tablet 1 tablet every 6 hours as needed for severe pain (7-10). Active take 1 tablet by ned th twice daily as needed oxyCODONE-acetaminophen (Percocet) 5-325 mg tablet Take 1 tablet by mouth 2 times a day as needed. Active albuterol 0.83 mg/ml inhalat ion solution [...] HOURS NEEDED as needed for Wheezing 1 October 15, 2018 12:00am June 26, 2019 2:15pm Start: 10-15-2018 End: 06-26-2019 take 1 puff(s) by inhalation every four hours as needed Albuterol Sulfate Discontinued 2 PUFF INHALATION EVERY 4 HOURS NEEDED October 15, 2018 12:00am June 26, 2019 2:15pm ALPRAZolam 0.25 mg oral tablet (5 sources) Benzodiazepine Start: 01-01-2025 take 1 tablet by mouth twice daily as needed ALPRAZolam (Xanax) 0.25 mg tablet TAKE 1 tablet by mouth two times daily, as needed 01/01/2025 Active Start: 05-06-2024 End: 05-06-2024 take 1 tablet by mouth once 0.5 mg, Oral, Once, On Sat05/06/24 at 1100, For 1 dose, Using dry hands, place tablet on top of tongue and allow to disintegrate. Administration with water is not necessary. apixaban 5 mg oral tablet (20 sources) Factor Xa Inhibitor Start: 03-30-2020 End: 08-31-2024 take 1 tablet by mouth twice daily apixaban (Eliquis) 5 MG tablet Indications: Cerebrovascular accident (CVA), unspecified mechanism (HCC) Take 1 tablet (5 mg) by mouth 2 times daily. 60 tablet 10/05/2023 Active aspirin 81 mg chewable tablet (20 sources) Platelet Aggregation Inhibitor, Nonsteroidal Anti-inflammatory Drug Start: 12-23-2024 Start: 12-23-2024 Start: 11-28-2024 End: 12-23-2024 Start: 05-06-2024 End: 05-07-2024 take 81 mg [...] 01-08-2018 End: 01-08-2018 Start: 05-03-2015 End: 09-09-2015 atorvastatin 80 mg oral tablet (20 sources) HMG-CoA Reductase Inhibitor Start: 04-19-2018 End: 12-17-2024 take 1 tablet by mouth once daily atorvastatin (Lipitor) 80 MG tablet Take 1 tablet (80 mg) by mouth Nightly. 30 tablet 10/05/2023 Active augmented betamethasone 0.5 mg/ml topical lotion (20 sources) Corticosteroid Start: 08-13-2023 betamethasone, augmented, (Diprolene) 0.05 % lotion APPLY TO RASH ON THE TRUNK OR SCALP 1-2 TIMES DAILY NEEDED 08/13/2023 Active Start: 08-13-2023 betamethasone, augmented, (Diprolene) 0.05 % lotion 08/13/2023 Active bismuth subsalicylate 262 mg chewable tablet (20 sources) Bismuth Start: 04-02-2024 bismuth subsal icylate (Pepto Bismol) 262 mg chewable tablet 04/02/2024 Active Start: 04-02-2024 End: 04-16-2024 Start: 04-02-2024 End: 04-16-2024 take 1 tablet by mouth every twenty-four hours Bismuth Subsalicylate 262 mg tablet,chewable Discontinued 2 {tbl} PO THREE TIMES A DAY 84 14 0 April 02, 2024 1:00am April 15, 2024 1:00am April 16, 2024 1:12am H. Pylori do not exceed 16 tabs per 24 hrs Blood-Glucose Meter,Continuo us (Dexcom G6 Document Photographer) misc (20 sources) Start: 07-26-2020 Blood-Glucose Meter,Continuous (Dexcom G6 Document Photographer) misc Active 0 .ROUTE .MEDSUPPLY July 26, 2020 12:36pm As directed Start: 07-26-2020 Blood-Glucose Meter,Continuous (Dexcom G6 Document Photographer) misc Active 0 .ROUTE .MEDSUPPLY July 25, 2020 11:00pm As directed Start: 07-26-2020 Blood-Glucose Meter,Continuous (Dexcom G6 Document Photographer) misc Active 0 .ROUTE .MEDSUPPLY July 26, 2020 12:00am As directed Blood-Glucose Sensor (Dexcom G6 Sensor) device (20 sources) Start: 02-25-2023 Blood-Glucose Sensor (Dexcom G6 Sensor) device Active 0 .ROUTE .MEDSUPPLY 1 February 25, 2023 12:46pm Diabetes mellitus 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 with hyperglycemia 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 dm As directed Start: 11-27-2023 Blood-Glucose Sensor (Dexcom G6 Sensor) device Active [...] mellitus 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 with hyperglycemia 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 As directed Start: [...] mellitus 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 with hyperglycemia shelter (current) use of insulin As directed Start: [...] mellitus 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 with hyperglycemia shelter (current) use of insulin As directed Start: [...] G6 Transmitter) device Discontinued 0 .ROUTE .MEDSUPPLY July 26, 2020 12:37pm June 01, 2021 [...] 12:00am June 01, 2021 3:34pm As directed Blood-Glucose,Document Photographer,Cont (Dexcom G6 Document Photographer) misc (3 sources) Start: 07-26-2020 Blood-Glucose,Document Photographer,Cont (Dexcom G6 Document Photographer) misc Active 0 .ROUTE .MEDSUPPLY 1 July 26, 2020 12:00am dm As directed Start: 07-26-2020 Blood-Glucose, Document Photographer,Cont (Dexcom G6 Document Photographer) misc Active 0 .ROUTE .MEDSUPPLY 1 July [...] as necessary cephalexin 500 mg oral capsule (12 sources) Cephalosporin Antibacterial Start: take 1 capsule by mouth three times daily cephalexin (Keflex) 500 mg capsule Take 1 capsule (500 mg) by mouth 3 times a day. 12/24/2024 Active Start: 12-23-2024 Start: 11-28-2024 End: 12-17-2024 clopidogrel 75 mg oral tablet (20 sources) P2Y12 Platelet Inhibitor Start: 11-14-2023 End: 05-21-2024 take 1 tablet by mouth in the morning clopidogrel (Plavix) 75 mg tablet Take 1 tablet (75 mg) by mouth early in the morning.. 04/27/2024 Active Start: 04-19-2018 End: 11-03-2018 Continuous Glucose Sensor (Dexcom G6 Sensor) misc (20 sources) Start: 10-01-2023 Continuous Glu cose Sensor (Dexcom G6 Sensor) misc Dexcom G6 Sensor Mis, USE DIRECTED FOR CONTINUOUS BLOOD GLUCOSE MONITORING, CHANGE SENSOR EVERY 10 DAYS 10/01/2023 Active dapagliflozin 5 mg oral tablet (20 sources) Sodium-Glucose Cotransporter 2 Inhibitor Start: 10-06-2023 End: 10-05-2023 dapagliflozin (Farxiga) 5 MG tablet Take 1 tablet (5 mg) by mouth daily. Do not start before October 06, 2023. 30 tablet 10/06/2023 Active Start: 10-04-2023 End: 11-05-2023 take 1 tablet by mouth once daily dapagliflozin propanediol (Farxiga) 5 mg Take 1 tablet (5 mg) by mouth once daily. 10/06/2023 Active Dexcom G6 Sensor device (18 sources) Start: 02-01-2024 Dexcom G6 Sens or device USE DIRECTED FOR CONTINUOUS BLOOD GLUCOSE MONITORING, CHANGE SENSOR EVERY 10 DAYS 02/01/2024 Active Dexcom G6 Sensor Mis (1 source) Start: 10-01-2023 Dexcom G6 Sens or Mis Dexcom G6 Sensor Mis, USE DIRECTED FOR CONTINUOUS BLOOD GLUCOSE MONITORING, CHANGE SENSOR EVERY 10 DAYS Start Date: 10/01/23 Status: Ordered docusate sodium 50 mg / sennosides, snf 8.6 mg oral tablet (6 sources) Start: 12-17-2024 sennosides-doc usate sodium (Daysi-Colace) 8.6-50 mg tablet docusate sodium 50 mg / sennosides, snf 8.6 mg oral tablet (3 sources) Start: 12-17-2024 12/17/2024 Active doxycycline monohydrate 100 mg oral tablet (20 sources) Tetracycline- class Drug Start: 11-28-2024 End: 12-17-2024 take 1 tablet by mouth every twelve hours doxycycline (Adoxa) 100 mg tablet Take 1 tablet (100 mg) by mouth every 12 hours. 11/28/2024 Active Start: 06-10-2023 take 1 capsule by [facility] twice daily doxycycline (Vibramycin) 100 MG capsule [...] 2020 12:00am October 13, 2020 3:54pm DULoxetine 40 mg delayed release oral capsule (20 sources) Serotonin and Norepinephrine Reuptake Inhibitor Start: 01-01-2025 take 2 capsules by mouth in the morning DULoxetine [address] capsule Take 2 capsules (80 mg) by mouth early in the morning.. 01/01/2025 Active Start: 10-06-2023 End: 10-05-2023 DULoxetine (Cymbalta) 60 [...] (20 sources) Sodium-Glucose Cotransporter 2 Inhibitor Start: 12-11-19 End: 08-13-19 Jardiance 25 MG 25 mg. 12/10/2022 Active fenofibrate 134 mg oral capsule (20 sources) Peroxisome Proliferator Receptor alpha Agonist Start: 08-20-19 End: 10-28-19 take 1 capsule by mouth in the morning fenofibrate micronized (Lofibra) 134 mg capsule Take 1 capsule (134 mg) by mouth early in the morning.. 10/17/2024 Active Start: 08-17-2024 End: 08-19-2024 Start: 10-14-2023 End: 08-17-2024 fenofibrate (Tricor) 54 MG t ablet 10/14/2023 Active ferrous sulfate 325 mg oral tablet (9 sources) Start: 03-02-2024 ferrous sulfat e 325 mg (65 mg elemental) tablet 1 tablet. 03/02/2024 Active furosemide 40 mg oral tablet (20 sources) Loop Diuretic Start: 12-23-2024 Start: 12-23-2024 Start: 06-20-2021 End: 12-23-2024 take 1 tablet by mouth in the morning furosemide (Lasix) 40 MG tablet Take 1 tablet (40 mg) by mouth in the morning and 1 tablet (40 mg) in the evening. 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 Do not start before October 06, 2023. 30 tablet 10/06/2023 Active Start: 10-04-2023 End: 11-05-2023 glipiZIDE (Glucotrol) 5 mg t ablet Take 1 tablet (5 mg) by mouth. 10/06/2023 Active Start: 05-03-2015 End: 09-09-2015 hydroCHLOROthiazide 25 mg or al tablet (20 sources) Thiazide Diuretic Start: 12-16-2024 Start: 01-08-2018 End: 06-20-2021 Infusion Set For Insulin Pum p (14 [...] bromide 0.042 mg/actuat metered dose nasal spray (5 sources) Anticholinergic Start: 11-05-2024 take 2 spray(s) nasal [...] tablet (20 sources) l-Thyroxine Start: 11-25-2024 Start: 10-04-2023 End: 11-25-2024 levothyroxine (Synthroid, Le voxyl) 112 MCG tablet [...] oral tablet (20 sources) beta-Adrenergic Renuka Start: 10-06-2023 End: 10-05-2023 metoprolol succinate XL (Toprol-XL) 100 MG 24 [...] 10/01/23 Status: Ordered Start: 04-07-2020 End: 03-27-2024 nitrofurantoin, macrocrystals 25 mg / nitrofurantoin, monohydrate 75 mg oral capsule (3 sources) Nitrofuran Antibacterial Start: 12-08-2024 take 1 capsule by mouth every twelve hours nitrofurantoin, macrocrystal-monohydrate, (Macrobid) 100 mg capsule Take 1 capsule (100 mg) by mouth every 12 hours. 12/08/2024 Active nystatin 100 unt/mg topical powder (3 sources) Polyene Antifungal Start: 12-01-2024 Nystop 100,000 unit/gram powder APPLY 1 GRAM TOPICALLY TWICE DAILY NEEDED 12/01/2024 Active oxybutynin chloride 5 mg oral tablet (4 sources) Cholinergic Muscarinic Antagonist Start: 01-01-2025 take 1 tablet by mouth twice daily oxybutynin (Ditropan) 5 MG tablet Take 5 mg by mouth twice a day. 01/01/2025 Active Start: 01-01-2025 take 1 tablet by ned th every twelve hours oxyBUTYnin (Ditropan) 5 mg tablet Take 1 tablet (5 mg) by mouth every 12 hours. 01/01/2025 Active pantoprazole 40 mg delayed release oral tablet (20 sources) Proton Pump Inhibitor Start: 05-03-2015 End: 07-22-2024 pantoprazole (ProtoNix) 40 mg EC tablet Take 1 tablet (40 mg) by mouth. 10/06/2023 Active Start: 06-29-2005 End: 07-22-2024 pantoprazole (ProtoNix) 40 M G EC tablet Take 1 tablet (40 mg) by mouth every morning (before breakfast). Do not crush, chew, or split. Do not start before October 06, 2023. 30 tablet 10/06/2023 Active Comment on above: Take one(1) tablet [...] 1200 December 22, 2020 12:00am As directed pirfenidone 267 mg oral tablet (11 sources) Pyridone Start: 11-16-2024 Pirfenidone 26 7 MG tablet Take by mouth. 11/16/2024 Active Start: 11-16-2024 take 3 tablets by mo uth three times daily pirfenidone (Esbriet) 267 mg tablet tablet Indications: ILD (interstitial lung disease) (Multi) Take 3 tablets (801 mg) by mouth 3 times a day. 270 tablet 5 12/17/2024 10:34 AM EDT 11/16/2024 Active potassium citrate 10 meq extended release oral tablet (20 sources) Start: 01-16-2023 End: 02-27-2023 potassium citrate CR (Urocit-K-10) 10 mEq ER tablet Take 10 mEq by mouth 2 times daily. 01/16/2023 Active predniSONE 10 mg oral tablet (20 sources) Start: 01-15-2025 End: 07-14-2025 take 1 tablet by mouth once daily predniSONE (Deltasone) 10 mg tablet Indications: ILD (interstitial lung disease) (Multi) Take 1 tablet (10 mg) by mouth once daily. 30 tablet 3 01/15/2025 07/14/2025 Active Start: 11-28-2024 take 4 tablets by mo uth once daily predniSONE (Deltasone) 10 mg tablet TAKE 4 TABLETS BY MOUTH FOR 1 DAY, THEN 3 TABS FOR 3 DAYS, THEN 2 TABS FOR 3 DAYS, THEN RESUME YOUR NORMAL 15MG DAILY DOSING 11/28/2024 Active Start: 09-16-2024 Prednisone 5 m g tablet Active 0 PO .COMPLEX September 16, 2024 12:00am Prednisone Burst orally; Start: 08-07-2024 End: 01-31-2025 take 4 tablets by mouth once daily, [...] once daily for 14 days. 284 tablet 10/19/2024 01/31/2025 Active Start: 06-10-2024 take 0.5 tablet by m outh in the morning predniSONE (Deltasone) 20 mg tablet Take 0.5 tablets (10 mg) by mouth early in the morning.. 06/10/2024 Active Start: 04-15-2024 End: 09-16-2024 take 2 tablets by mouth once daily predniSONE (Deltasone) 20 mg tablet Indications: ILD (interstitial lung disease) (Multi) Take 2 tablets (40 mg) by mouth once daily. 10 tablet 07/14/2024 Active Start: 04-15-2024 End: 09-16-2024 rosuvastatin calcium 40 mg oral tablet (19 sources) HMG-CoA Reductase Inhibitor Start: 10-27-2024 take 1 tablet by mouth in the morning rosuvastatin (Crestor) 40 mg tablet Take 1 tablet (40 mg) by mouth early in the morning.. 10/27/2024 Active Start: 10-27-2024 End: 12-16-2024 spironolactone 50 mg oral tablet (20 sources) Aldosterone Antagonist Start: 05-21-2022 End: 05-21-2024 take 1 tablet by mouth once daily spironolactone (Aldactone) 50 MG tablet Take 50 mg by mouth daily. 09/06/2023 Active Start: 05-11-2022 End: 05-21-2022 tamsulosin hydrochloride 0.4 mg oral capsule (20 [...] tablet (20 sources) Start: 05-08-2024 End: 11-02-2025 take 1 tablet by mouth twice daily ticagrelor (Brilinta) 90 MG tablet Indications: Bilateral carotid artery stenosis Take 1 tablet (90 mg) by mouth 2 times daily. 90 tablet 1 11/02/2024 11/02/2025 Active traMADol hydrochloride 50 mg oral tablet (20 sources) Opioid Agonist Start: 12-10-2022 traMADol (Ultr am) 50 MG tablet Take 50 mg by mouth. 12/10/2022 Active (20 sources) Start: [...] Agonist Start: 02-14-2023 End: 05-06-2024 HYDROcodone-acetami nophen (Wells) 5-325 MG tablet Take 1 tablet by [...] TWICE A DAY February 14, 2023 1:00am amLODIPine 5 mg oral tablet (20 sources) Dihydropyridine Calcium Channel Renuka Start: 05-02-2023 End: 12-17-2024 Start: 02-27-2023 End: 04-25-2023 Start: 01-25-2022 take 10 mg by mouth once daily Amlodipine Active 10 MG PO DAILY January 25, 2022 12:00am Start: 09-12-2021 End: 01-25-2022 Start: 09-07-2021 End: 09-12-2021 Start: 07-18-2021 take 2.5 mg by mouth once zach y Amlodipine Active 2.5 MG PO DAILY July 18, 2021 11:03am Start: 05-03-2015 End: 01-08-2018 amoxicillin 500 mg oral caps ule (20 sources) Penicillin-class Antibacterial Start: 04-02-2024 End: 04-15-2024 atenolol 100 mg oral tablet (20 sources) [...] 10-03-2023 End: 10-05-2023 clarithromycin 500 mg oral tablet (20 sources) Macrolide Antimicrobial Start: 04-02-2024 End: 04-15-2024 12 hr dextromethorphan hydrobromide 60 mg / guaiFENesin 1200 mg extended release oral tablet (20 sources) Uncompetitive N-petowm-C-aspartate Receptor Antagonist, Sigma-1 Agonist Start: 04-24-2024 End: 04-30-2024 Dextromethorphan-Guaif enesin 60-1,200 mg tablet extended release 12 hr [...] 22, 2020 12:00am December 22, 2020 2:52pm ergocalciferol 0.05 mg oral capsule (20 sources) Provitamin D2 Compound Start: 12-16-2024 End: 12-17-2024 Start: 04-05-2023 take 1 capsule by mo uth every week ergocalciferol (Vitamin D2) 1.25 MG (09072 UT) capsule Take 1 capsule by mouth 1 (one) time per week. 04/05/2023 Active Start: 04-05-2023 ergocalciferol (Vitamin D-2) 1250 mcg (50,000 units) capsule Take 1 capsule (1.25 mg) by mouth. 04/05/2023 Active Start: 04-05-2023 ergocalciferol (Vitamin D-2) 1250 mcg (50,000 units) capsule Take 1 capsule (1,250 mcg) by mouth. 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 Start: 08-01-2022 End: [...] Active metroNIDAZOLE 500 mg oral ta blet (20 sources) Nitroimidazole Antimicrobial Start: 04-02-2024 End: 04-15-2024 nintedanib 150 mg oral capsu le (20 sources) Kinase Inhibitor Start: 04-22-2024 End: 05-21-2024 potassium chloride 10 meq ex tended release oral tablet (20 sources) Start: 06-20-2021 End: 05-11-2022 Start: 06-20-2021 End: 05-11-2022 SITagliptin 100 mg [...] Midline or Central Line = 20 mL/lumen Problems Active Problems Problem Classification Problem Date Documented Da te Episodic/Chronic Acute cerebrovascular disease (20 sources) Ischemic stroke; Translations: [Cerebral infarction, unspecified] Onset: 4 03-31-2023 Chronic Cardiac dysrhythmias (20 sources) Paroxysmal atrial fibrillation; Translations: [Paroxysmal atrial fibrillation] Onset: 0 Chronic Chronic kidney disease (20 sources) Chronic kidney disease; Translations: [Chronic kidney disease, unspecified] Onset: 3 12-10-2022 Chronic Chronic kidney disease (1 source) Chronic kidney disease; Translations: [Chronic kidney disease, stage 3a] Onset: 5 Chronic ulcer of skin (8 sources) Chronic ulcer of thigh; Translations: [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] Onset: 5 12-17-2024 Chronic Congestive heart failure; nonhypertensive (20 sources) Congestive [...] Onset: 5 Chronic Deficiency and other anemia (20 sources) Anemia; Translations: [Anemia, unspecified] 03-27-2024 Episodic Deficiency and other anemia (2 sources) Iron deficiency anemia, unspecified; Translations: [Iron deficiency anemia, unspecified] Onset: 5 Episodic Diabetes mellitus with [...] Translations: [Essential hypertension] Onset: 6 09-23-2015 Chronic Genitourinary congenital anomalies (20 sources) Multiple congenital [...] urinary tract symptoms] Onset: 6 09-21-2015 Chronic Intestinal infection (2 sources) Other specified bacterial intestinal infections; Translations: [Other specified bacterial intestinal infections] Onset: 5 Episodic Malaise and fatigue (20 sources) Fatigue; Translations: [Other fatigue] Onset: 4 02-16-2021 Episodic Nutritional deficiencies (1 source) Iron deficiency; Translations: [Iron deficiency] Onset: 5 Episodic Occlusion or stenosis of precerebral arteries (20 sources) Carotid artery stenosis; Translations: [Occlusion and stenosis of unspecified carotid artery] Onset: 4 10-11-2021 Chronic Comment on above: CTA- L CCA 70% 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 Other aftercare (20 sources) Drug therapy finding; Translations: [shelter (current) use of anticoagulants] 03-05-2024 Episodic Other aftercare (20 sources) Long-term current use of anticoagulant; Translations: [shelter (current) use of anticoagulants] 11-24-2023 Episodic Other aftercare (1 source) Taking high risk medication; Translations: [Other shelter (current) drug therapy] 01-15-2025 Episodic Other aftercare (2 sources) Other extermination supervisor (current) drug therapy; Translations: [Other extermination supervisor (current) drug therapy] Onset: Episodic Other aftercare (2 sources) shelter (current) use of anticoagulants; Translations: [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 supervisor (current) use of anticoagulants] Onset: Episodic Other circulatory disease (20 sources) Other [...] residual deficits] 03-12-2023 Episodic Other circulatory disease (20 sources) H/O: atrial fibrillation; Translations: [Personal history of other diseases of the circulatory system] 11-24-2023 Episodic Other connective tissue disease (20 sources) Weakness of face muscles; Translations: [Facial weakness] 11-24-2023 Episodic Other connective tissue disease (1 source) Unspecified symptoms and signs involving the nervous system; Translations: [Unspecified symptoms and signs involving the nervous system] Onset: Episodic Other connective tissue disease (1 source) Other symptoms and signs involving the musculoskeletal system; Translations: [Other symptoms and signs involving the musculoskeletal system] Onset: Episodic Other diseases of kidney and ureters (20 sources) Renal impairment; Translations: [Disorder of kidney and ureter, unspecified] 05-21-2024 Episodic Other gastrointestinal disorders (20 sources) Abdominal bloating; Translations: [Abdominal distension (gaseous)] 01-28-2024 Episodic Other lower respiratory disease (20 sources) Interstitial lung disease; Translations: [Interstitial pulmonary disease, unspecified] Onset: 5 07-09-2024 Chronic Other lower respiratory disease (9 sources) Interstitial pulmonary disease, unspecified; Translations: [Interstitial pulmonary disease, unspecified] Onset: Chronic Other lower respiratory disease (3 sources) Idiopathic pulmonary fibrosis; Translations: [Idiopathic pulmonary fibrosis] 12-24-2024 Chronic Other lower respiratory disease (20 sources) Dyspnea on exertion; Translations: [Dyspnea, unspecified] 10-13-2020 Episodic Other lower respiratory disease (20 sources) Other forms of dyspnea; Translations: [Other respiratory abnormalities] Episodic Other lower respiratory disease (20 sources) Hypoxemia; Translations: [Hypoxemia] 04-12-2024 Episodic Other lower respiratory disease (20 sources) Respiratory insufficiency; Translations: [Other abnormalities of breathing] 01-28-2024 Episodic Other lower respiratory disease (20 sources) Hypoxia; Translations: [Hypoxemia] 01-28-2024 Episodic Other [...] Chronic Other nutritional; endocrine; and metabolic disorders (4 sources) Body mass index (BMI) 40.0-44.9, adult; Translations: [Body mass index (BMI) 40.0-44.9, adult ([facility])] Onset: 5 Chronic Other nutritional; endocrine; and metabolic disorders (1 source) Morbid (severe) obesity due to excess calories; Translations: [Morbid (severe) obesity due to excess calories] Onset: 5 Chronic Other nutritional; endocrine; and metabolic disorders (1 source) Body mass index (BMI) 45.0-49.9, adult; Translations: [Body mass index [BMI] 45.0-49.9, adult] Onset: 5 Chronic Other nutritional; endocrine; and metabolic disorders (20 sources) H/O: diabetes mellitus; Translations: [Personal history of other endocrine, nutritional and metabolic disease] 11-24-2023 Episodic Peripheral and visceral atherosclerosis (20 sources) Arteriosclerotic vascular disease; Translations: [Unspecified atherosclerosis] 11-24-2023 Chronic Pneumonia (except that caused by tuberculosis or sexually transmitted disease) (20 sources) Pneumonia; Translations: [Pneumonia, unspecified organism] 01-28-2024 Episodic Pulmonary heart disease (8 sources) Pulmonary hypertension; Translations: [Pulmonary hypertension, unspecified] Onset: 5 07-09-2024 Chronic Residual codes; unclassified (20 sources) Obstructive sleep apnea syndrome; Translations: [Obstructive sleep apnea (adult) (pediatric)] Onset: 4 07-13-2021 Chronic Residual codes; unclassified (17 sources) Obstructive sleep apnea (adult) (pediatric); Translations: [Obstructive sleep apnea (adult)(pediatric)] Onset: Chronic Residual codes; unclassified (20 sources) Sleep apnea; Translations: [Sleep apnea, unspecified] 03-23-2024 Chronic Residual codes; unclassified (3 sources) Transient alteration of awareness; Translations: [Transient alteration of awareness] Onset: 5 01-18-2025 Episodic Residual codes; unclassified (1 source) Transient alteration of awareness; Translations: [Transient alteration of awareness] Onset: Episodic Residual codes; unclassified (1 source) Device in situ; Translations: [Mechanical venous thromboembolism (VTE) prophylaxis in place] Onset: 6 09-21-2015 Respiratory failure; insufficiency; arrest (adult) (20 sources) Chronic hypoxemic respiratory failure; Translations: [Chronic respiratory failure with hypoxia] Onset: 4 06-12-2022 Chronic Septicemia (except in labor) (15 sources) Sepsis; Translations: [Sepsis, unspecified organism] Onset: 5 11-26-2024 Episodic Skin and subcutaneous tissue infections (15 sources) Cellulitis; Translations: [Cellulitis, unspecified] Onset: 5 11-26-2024 Episodic Thyroid disorders (20 sources) Hypothyroidism; Translations: [...] during his initial consultation and resulted in "Atypia of undetermined significance" for the right side and "benign" for the left. Today biopsy was repeated for cytopathology and Afirma testing for right nodule after again holding anticoagulation. details given above. Will follow up with patient on results once official Transient cerebral ischemia (20 sources) Transient cerebral ischemia; Translations: [Transient cerebral ischemic attack, unspecified] Onset: 9 04-04-2020 Chronic Unclassified (1 source) DISPOSITION AND FOLLOW-UP Onset: 6 09-23-2015 Urinary tract infections (3 sources) Urinary tract infectious disease; Translations: [Urinary tract infection, site not specified] 12-23-2024 Episodic Past or Other Problems Problem Classification Problem Date Documented Da te Episodic/Chronic Abdominal pain (20 sources) Left flank pain; Translations: [Unspecified abdominal pain] Onset: 07-04-2015 07-04-2015 Episodic Blindness and vision defects (20 sources) Diplopia; Translations: [Diplopia] Onset: 10-08-2022 10-08-2022 Episodic Calculus of urinary tract (20 sources) Kidney stone; Translations: [Calculus of kidney] Onset: 09-09-2006 09-09-2006 Episodic Cardiac dysrhythmias (20 sources) Palpitations; Translations: [Palpitations] Onset: 01-02-2024 03-06-2021 Episodic Complications of surgical procedures or medical care (20 sources) Postoperative infection; Translations: [Infection following a procedure, unspecified, initial encounter] Onset: 01-02-2024 12-10-2022 Episodic Conditions associated with dizziness or vertigo (20 sources) Dizziness; Translations: [Dizziness and giddiness] Onset: 10-08-2022 02-16-2021 Episodic Deficiency and other anemia (2 sources) Anemia, unspecified; Translations: [Anemia, unspecified] Onset: 04-21-2024 Episodic Diabetes mellitus without complication (20 sources) Insulin pump present; Translations: [Presence of insulin pump (external) (internal)] Onset: 01-02-2024 09-03-2022 Episodic Fluid and electrolyte disorders (20 sources) Lactic acidosis; Translations: [Acidosis] Onset: 01-02-2024 Episodic Genitourinary symptoms and ill-defined conditions (20 sources) Microalbuminuria; Translations: [Proteinuria, unspecified] Onset: 12-10-2022 12-10-2022 Episodic Immunizations and screening for infectious disease (20 sources) Rheumatoid factor positive; Translations: [Other specified abnormal immunological findings in serum] Onset: 03-23-2024 05-01-2024 Episodic Nonmalignant breast conditions (20 sources) Breast lump; Translations: [Unspecified lump in unspecified breast] Onset: 05-30-2007 05-30-2007 Episodic Other aftercare (1 source) shelter (current) use of insulin; Translations: [shelter (current) use of insulin] Onset: 09-16-2024 Episodic Other circulatory disease (20 sources) Carotid bruit; Translations: [Other specified symptoms and signs involving the circulatory and respiratory systems] Onset: 05-06-2023 09-07-2021 Episodic Other gastrointestinal disorders (1 source) Abdominal distension (gaseous); Translations: [Abdominal distension (gaseous)] Onset: 02-18-2024 Episodic Other lower respiratory disease (1 source) Disorder of lung; Translations: [Other diseases of lung, not elsewhere classified] Onset: 02-26-2007 02-26-2007 Episodic Other lower respiratory disease (13 sources) Dyspnea, unspecified; Translations: [Other respiratory abnormalities] Onset: 06-18-2024 Episodic Other lower respiratory disease (20 sources) Dyspnea; Translations: [Shortness of breath] Onset: 02-28-2023 04-25-2023 Episodic Other lower respiratory disease (2 sources) Shortness of breath; Translations: [Shortness of breath] Onset: 04-30-2024 Episodic Other lower respiratory disease (1 source) Hypoxemia; Translations: [Hypoxemia] Onset: 03-26-2024 Episodic Other nervous system disorders (20 sources) Acute postoperative pain; Translations: [Other acute postprocedural pain] Onset: 09-20-2015 09-23-2015 Episodic Other nervous system disorders (1 source) Paresthesia of skin; Translations: [Paresthesia of skin] Onset: 10-13-2024 Episodic Other screening for suspected conditions (not mental disorders or infectious disease) (20 sources) Decreased testosterone level ; Translations: [Other specified abnormal findings of blood chemistry] Onset: 11-15-2022 07-05-2022 Episodic Pleurisy; pneumothorax; pulmonary collapse (20 sources) Pleural effusion; Translations: [Pleural effusion, not elsewhere classified] Onset: 09-09-2015 09-23-2015 Episodic Respiratory failure; insufficiency; arrest (adult) (20 sources) Acute respiratory failure; Translations: [Acute respiratory failure with hypoxia] Onset: 01-02-2024 Episodic Syncope (20 sources) Near syncope; Translations: [Syncope and collapse] Onset: 01-02-2024 07-24-2021 Episodic Unclassified (13 sources) Onset: 08-07-2024 08-07-2024 Results Test Name Value Interpretation Reference Range Facility Office Visiton 01-18-2025 Follow-up visit [id number] Krunal Leos 1965 M Date Provider Department Center 01/18/2025 [id number] WINTERS [facility] NRO None No family history on file Level of Service:73047 CT OFFICE/OUTPATIENT ESTABLISHED MOD MDM 30 MIN Reason for Visit and Comments: Follow-up [001866] [facility] Progress Noteon 01-18-2025 Progress Note History of Present Illness: 59 yo man here for stroke fu and cerebrovascular stenosis. He is present for interview with and daughter. Per my last note (12/2023): He originally presented 09/2023 for left hemiparesis and was transferred to [facility] from [facility]. He was found to have right hemispheric [...] episode of left hemiparesis. He went to [facility] and was found to have increased stroke burden of the right hemisphere. Vascular surgery was consulted and no surgical procedure was recommended. He had a 3rd event of left hemiparesis the following week and a CT was done at [place] [facility]. At that time clopidogrel was added (in addition to ASA and Eliquis). The patient returned to normal and was discharged from the ED to home. 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 He is a nonsmoker. He does report some new SOB over the last week or so, and has plans to see his PCP. He underwent cerebral angiogram 05/2024 which revealed severe right MCA stenosis (99%), left vertebral artery occlusion, and mild bilateral ICA atherosclerosis. He was also found to be a Plavix non-responder at that time and was switched to Brilinta. He had no events on the above regiment until August 2024 when he was being worked up for SOB. He underwent a lung biopsy at that time, and ASA, Brilinta, and Eliquis were held for several days. He did have a right hemispheric stroke off of his medications (and after the biopsy), and CTA at [place] revealed a now complete right MCA occlusion. He has since been restarted on the medications. He has been diagnosed to have idiopathic pulmonary fibrosis, and is now on 4L oxygen at home. He also has weekly events of left face droop and confusion that has prompted trips to [facility] and been diagnosed as "TIA". These usually happen at the end of a long day or if he is tired. There have been no additional MRIs and no residual symptoms. After his last visit the family has been told not to come to hospital with routine TIA. The patient and his family have been in contact with Hospice for pulmonary fibrosis, but have not yet decided that they want to pursue this option. 09/2024 - off eliquis for lung biopsy. Past Medical History: Diagnosis Date A-fib (HCC) Bilateral carotid artery stenosis BPH (benign prostatic hyperplasia) CHF (congestive heart failure) (HCC) Chronic idiopathic pulmonary fibrosis (HCC) CVA (cerebral vascular accident) (HCC) DM (diabetes mellitus), type 2 (HCC) HTN (hypertension) Hyperlipidemia Hypothyroid Insulin pump in place Supplemental oxygen dependent 4LNC resting 8LNC with exertion TIA (transient ischemic attack) No past surgical history on file. Current Outpatient Medications: apixaban (Eliquis) 5 MG tablet, Take 1 tablet (5 mg) by mouth 2 times daily., Disp: 60 tablet, Rfl: 0 aspirin 325 MG tablet, Take 325 mg by mouth in the morning., Disp: , Rfl: atorvastatin (Lipitor) 80 MG tablet, Take 1 tablet (80 mg) by mouth Nightly., Disp: 30 tablet, Rfl: 0 betamethasone, augmented, (Diprolene) 0.05 % lotion, APPLY TO RASH ON THE TRUNK OR SCALP 1-2 TIMES DAILY NEEDED, Disp: , Rfl: busPIRone (Buspar) 10 MG tablet, Take 1 tablet (10 mg) by mouth 3 times daily., Disp: 90 tablet, Rfl: 0 Continuous Glucose Sensor (Dexcom G6 Sensor) [facility], Dexcom G6 Sensor Mis, USE DIRECTED FOR CONTINUOUS BLOOD GLUCOSE MONITORING, CHANGE SENSOR EVERY 10 DAYS, Disp: , Rfl: dapagliflozin (Farxiga) 5 MG tablet, Take 1 tablet (5 mg) by mouth daily. Do not start before October 06, 2023., Disp: 30 tablet, Rfl: 0 doxycycline (Vibramycin) 100 MG capsule, Take 100 mg by mouth 2 times daily. (Patient not taking: Reported on 05/06/2024), Disp: , Rfl: DULoxetine (Cymbalta) [address] capsule, Take 1 capsule (60 mg) by mouth daily. Do not crush or chew. Do not start before October 06, 2023., Disp: 30 capsule, Rfl: 0 ergocalciferol (Vitamin D2) 1.25 MG (45982 UT) capsule, Take 1 capsule by mouth 1 (one) time per week., Disp: , Rfl: fenofibrate (Tricor) 54 MG tablet, , Disp: , Rfl: furosemide (Lasix) 40 MG tablet, Take 1 tablet (40 mg) by mouth in the morning and 1 tablet (40 mg) in the evening., Disp: 60 tablet, Rfl: 0 glipiZIDE (Glucotrol) 5 MG tablet, Take 1 tablet (5 mg) by mouth every morning (before breakfast). Do not start before October 06, 2023. (Patient not taking: Reported on 05/06/2024), Disp: 30 tablet, Rfl: 0 insulin regular (HumuLIN R,NovoLIN R) 100 UNIT/ML injection, Inject 0.2 mL (20 Units) under the skin in the morning and 0.2 mL (20 Units) at noon and 0.2 mL (20 Units) in the (more content not included)... Normal [facility] Celiac AB,Comprehensiveon ANTIGLIADIN IGA 7 units Normal 0-19 [facility] Comment on above: Order Comment: Reaso n for Exam: ANEMIA Result Comment: Nega tive 0 - 19 Weak Positive 20 - 30 Moderate to Strong Positive >30 Performed By: #### L 3100.1350, L101.9900, L100.0100, L506.0200, L504.2610, L503.6550, L3100.1960, L501.2300, L3410.2350, L100.9950 ####[facility] [address] [place], [address] ANTIGLIADIN IGG 2 units Normal 0-19 [facility] Comment on above: Order Comment: Reaso n for Exam: ANEMIA Result Comment: Nega tive 0 - 19 Weak Positive 20 - 30 Moderate to Strong Positive >30 Performed By: #### L 3100.1350, L101.9900, L100.0100, L506.0200, L504.2610, L503.6550, L3100.1960, L501.2300, L3410.2350, L100.9950 ####[facility] [address] [place], [address] ENDOMYSIAL IGA Negative Normal Negative [facility] Comment on above: Order Comment: Reaso n for Exam: ANEMIA Performed By: #### L 3100.1350, L101.9900, L100.0100, L506.0200, L504.2610, L503.6550, L3100.1960, L501.2300, L3410.2350, L100.9950 ####[facility] [address] [place], [place], [phone] IMMUNOGLOB A QN 337 mg/dL Normal 61-437 [facility] Comment on above: Order Comment: Reaso n for Exam: ANEMIA Performed By: #### L 3100.1350, L101.9900, L100.0100, L506.0200, L504.2610, L503.6550, L3100.1960, L501.2300, L3410.2350, L100.9950 ####[facility] [address] [place], [address] tTG IGA <2 Normal 0-3 [facility] Comment on above: Order Comment: Reaso n for Exam: ANEMIA Result Comment: Nega tive 0 - 3 Weak Positive 4 - 10 Positive >10 Tissue Transglutaminase (tTG) has been identified as the endomysial antigen. Studies have demonstr- ated that endomysial IgA antibodies have over 99% specificity for gluten sensitive enteropathy. Performed By: #### L 3100.1350, L101.9900, L100.0100, L506.0200, L504.2610, L503.6550, L3100.1960, L501.2300, L3410.2350, L100.9950 ####[facility] [address] [place], [address] tTG IGG 3 U/mL Normal 0-5 [facility] Comment on above: Order Comment: Reaso n for Exam: ANEMIA Result Comment: Nega tive 0 - 5 Weak Positive 6 - 9 Positive >9 Performed By: #### L 3100.1350, L101.9900, L100.0100, L506.0200, L504.2610, L503.6550, L3100.1960, L501.2300, L3410.2350, L100.9950 ####[facility] [address] [place], [place], [phone] Erythropoietinon 01-13-2025 ERYTHROPOIETIN 65.7 mIU/mL High 2.6-18.5 [facility] Comment on above: Order Comment: Marcoo n for Exam: ANEMIA Result Comment: Zoombuel DxI 800 Immunoassay SystemValues obtained with different assay methods or kits cannotbe used interchangeably. Results cannot be interpreted asabsolute evidence of the presence or absence of malignantdisease. Performed By: #### L 3100.1350, L101.9900, L100.0100, L506.0200, L504.2610, L503.6550, L3100.1960, L501.2300, L3410.2350, L100.9950 ####[facility] [address] [place], [address] H pylori Breath Teston 01-13 H.Pylori Breath Negative Normal Negative [facility] Comment on above: Order Comment: Kb n for Exam: ANEMIA Result Comment: Perf ormed at: [facility] [address] [id number] Director: Chance Morales PhD, Phone: [phone] Performed By: #### L 3100.1350, L101.9900, L100.0100, L506.0200, L504.2610, L503.6550, L3100.1960, L501.2300, L3410.2350, L100.9950 ####[facility] [address] [place], [address] CBC W/Diff, Automatedon 12-30 Absolute Lymph 1.42 X10 3/uL Normal 0.83-4.51 [facility] Comment on above: Performed By: #### L 3100.1350, L101.9900, L100.0100, L506.0200, L504.2610, L503.6550, L3100.1960, L501.2300, L3410.2350, L100.9950 ####[facility] [address] [place], [place], [phone](107) Absolute Neut 8.3 X10 3/uL High 2.0-7.7 [facility] Comment on above: Performed By: #### L 3100.1350, L101.9900, L100.0100, L506.0200, L504.2610, L503.6550, L3100.1960, L501.2300, L3410.2350, L100.9950 ####[facility] [address] [place], [place], [phone](052) Basophils/100 WBC (Bld) 0.6 % Normal 0-1 [facility] Comment on above: Performed By: #### L 3100.1350, L101.9900, L100.0100, L506.0200, L504.2610, L503.6550, L3100.1960, L501.2300, L3410.2350, L100.9950 ####[facility] [address] [place], [place], [phone] Eosinophils/100 WBC (Bld) 3.4 % Normal 0-5 [facility] Comment on above: Performed By: #### L 3100.1350, L101.9900, L100.0100, L506.0200, L504.2610, L503.6550, L3100.1960, L501.2300, L3410.2350, L100.9950 ####[facility] [address] [place], [place], [phone]) Erythrocyte distribution width (RBC) [Ratio] 20.0 % High 11.6-14.6 [facility] Comment on above: Performed By: #### L 3100.1350, L101.9900, L100.0100, L506.0200, L504.2610, L503.6550, L3100.1960, L501.2300, L3410.2350, L100.9950 ####[facility] [address] [place], [address] Hematocrit (Bld) [Volume fraction] 30.6 % Low 40-54 [facility] Comment on above: Performed By: #### L 3100.1350, L101.9900, L100.0100, L506.0200, L504.2610, L503.6550, L3100.1960, L501.2300, L3410.2350, L100.9950 ####[facility] [address], [address] Hemoglobin (Bld) [Mass/Vol] 9.1 g/dL Low 13.0-16.5 [facility] Comment on above: Performed By: #### L 3100.1350, L101.9900, L100.0100, L506.0200, L504.2610, L503.6550, L3100.1960, L501.2300, L3410.2350, L100.9950 ####[facility] [address] [facility] [place], [address] IG% 0.800 Normal 0.0-0.9 [facility] Comment on above: Result Comment: IG% - Immature Granulocytes (promyelocytes, myelocytes andmetamyelocytes) > 1% indicates that a LEFT SHIFT is Present. Performed By: #### L 3100.1350, L101.9900, L100.0100, L506.0200, L504.2610, L503.6550, L3100.1960, L501.2300, L3410.2350, L100.9950 ####[facility] [address] [place], [address] Lymphocytes/100 WBC (Bld) 12.9 % Low 19-41 [facility] Comment on above: Performed By: #### L 3100.1350, L101.9900, L100.0100, L506.0200, L504.2610, L503.6550, L3100.1960, L501.2300, L3410.2350, L100.9950 ####[facility] [address] [place], [address] MCH (RBC) [Entitic mass] 25.0 pg Low 27.0-32.0 [facility] Comment on above: Performed By: #### L 3100.1350, L101.9900, L100.0100, L506.0200, L504.2610, L503.6550, L3100.1960, L501.2300, L3410.2350, L100.9950 ####[facility] [address] [place], [place], [phone](572) MCHC (RBC) [Mass/Vol] 29.7 g/dL Low 32-36 [facility] Comment on above: Performed By: #### L 3100.1350, L101.9900, L100.0100, L506.0200, L504.2610, L503.6550, L3100.1960, L501.2300, L3410.2350, L100.9950 ####[facility] [address] [place], [place], [phone](396) MCV (RBC) [Entitic vol] 84.1 fL Normal 80-94 [facility] Comment on above: Performed By: #### L 3100.1350, L101.9900, L100.0100, L506.0200, L504.2610, L503.6550, L3100.1960, L501.2300, L3410.2350, L100.9950 ####[facility] [address] [place], [place], [phone](909) Monocytes/100 WBC (Bld) 7.4 % Normal 0-10 [facility] Comment on above: Performed By: #### L 3100.1350, L101.9900, L100.0100, L506.0200, L504.2610, L503.6550, L3100.1960, L501.2300, L3410.2350, L100.9950 ####[facility] [address] [place], [place], [phone](121) Neutrophils/100 WBC (Bld) 74.9 % High 47-70 [facility] Comment on above: Performed By: #### L 3100.1350, L101.9900, L100.0100, L506.0200, L504.2610, L503.6550, L3100.1960, L501.2300, L3410.2350, L100.9950 ####[facility] [address] [place], [place], [phone](606) Nucleated RBC (Bld) [#/Vol] 0 10*3/uL Normal 0-5 [facility] Comment on above: Performed By: #### L 3100.1350, L101.9900, L100.0100, L506.0200, L504.2610, L503.6550, L3100.1960, L501.2300, L3410.2350, L100.9950 ####[facility] [address] [place], [phone]) Platelet mean volume (Bld) [Entitic vol] 9.3 fL Normal 6.2-12.0 [facility] Comment on above: Performed By: #### L 3100.1350, L101.9900, L100.0100, L506.0200, L504.2610, L503.6550, L3100.1960, L501.2300, L3410.2350, L100.9950 ####[facility] [address] [place], [phone](240) Platelets (Bld) [#/Vol] 297 10*3/uL Normal 150-450 [facility] Comment on above: Performed By: #### L 3100.1350, L101.9900, L100.0100, L506.0200, L504.2610, L503.6550, L3100.1960, L501.2300, L3410.2350, L100.9950 ####[facility] [address] [place], [place], [phone]([phone]) RBC (Bld) [#/Vol] 3.64 10*6/uL Low 4.6-6.2 [facility] Comment on above: Performed By: #### L 3100.1350, L101.9900, L100.0100, L506.0200, L504.2610, L503.6550, L3100.1960, L501.2300, L3410.2350, L100.9950 ####[facility] [address] [place], [place], [phone](721) RDW SD 61.5 fl High 35.1-43.9 [facility] Comment on above: Performed By: #### L 3100.1350, L101.9900, L100.0100, L506.0200, L504.2610, L503.6550, L3100.1960, L501.2300, L3410.2350, L100.9950 ####[facility] [address] [place], [place], [phone](481) WBC (Bld) [#/Vol] 11.0 10*3/uL Normal 4.4-11.0 [facility] Comment on above: Performed By: #### L 3100.1350, L101.9900, L100.0100, L506.0200, L504.2610, L503.6550, L3100.1960, L501.2300, L3410.2350, L100.9950 ####[facility] [address] [place], [place], [phone](106) CRPon 01-12-2025 C-REACTIVE PROT 40.70 mg/L High 0.0-3.0 [facility] Comment on above: Performed By: #### L 501.5200, L503.6030, L503.0106, L501.6710, L500.4050 ####[facility] [address] [place], [address] Comprehensive Metabolic Prof ilon 01-12-2025 Albumin [Mass/Vol] 4.1 g/dL Normal 3.4-4.8 [facility] Comment on above: Performed By: #### L 501.5200, L503.6030, L503.0106, L501.6710, L500.4050 ####[facility] [address] [place], [address] Albumin/Globulin [Mass ratio] 0.9 {ratio} Normal 0.9-2.4 [facility] [facility] Comment on above: Performed By: #### L 501.5200, L503.6030, L503.0106, L501.6710, L500.4050 ####[facility] [address] [place], [address] ALK PHOS 62 U/L Normal 40-129 [facility] Comment on above: Performed By: #### L 501.5200, L503.6030, L503.0106, L501.6710, L500.4050 ####[facility] [address] [place], [address] ALT [Catalytic activity/Vol] 17 U/L Normal <=46 [facility] Comment on above: Performed By: #### L 501.5200, L503.6030, L503.0106, L501.6710, L500.4050 ####[facility] [address] [place], [address] AST [Catalytic activity/Vol] 20 U/L Normal <=37 [facility] Comment on above: Performed By: #### L 501.5200, L503.6030, L503.0106, L501.6710, L500.4050 ####[facility] [address] [place], [address] Bilirubin [Mass/Vol] 0.47 mg/dL Normal 0.00-1.30 [facility] Comment on above: Performed By: #### L 501.5200, L503.6030, L503.0106, L501.6710, L500.4050 ####[facility] [address] [place], [address] BUN/CRE 15.7 RATIO Normal 10-20 [facility] Comment on above: Performed By: #### L 501.5200, L503.6030, L503.0106, L501.6710, L500.4050 ####[facility] [address] [place], [address] Calcium [Mass/Vol] 9.7 mg/dL Normal 7.6-11.0 [facility] Comment on above: Performed By: #### L 501.5200, L503.6030, L503.0106, L501.6710, L500.4050 ####[facility] [address] [place], [address] Chloride [Moles/Vol] 99 mmol/L Normal 98-108 [facility] Comment on above: Performed By: #### L 501.5200, L503.6030, L503.0106, L501.6710, L500.4050 ####[facility] [address] [place], [address] CO2 [Moles/Vol] 23.6 mmol/L Normal 21.0-32.0 [facility] Comment on above: Performed By: #### L 501.5200, L503.6030, L503.0106, L501.6710, L500.4050 ####[facility] [address] [place], [address] Creatinine [Mass/Vol] 1.30 mg/dL High 0.70-1.20 [facility] Comment on above: Performed By: #### L 501.5200, L503.6030, L503.0106, L501.6710, L500.4050 ####[facility] [address] [place], [address] ECRCL 83.36 ml/min Normal 50-250 [facility] Comment on above: Performed By: #### L 501.5200, L503.6030, L503.0106, L501.6710, L500.4050 ####[facility] [address] [place], [address] GAP 14 Normal 5-15 [facility] Comment on above: Performed By: #### L 501.5200, L503.6030, L503.0106, L501.6710, L500.4050 ####[facility] [address] [place], [address] GFR/1.73 sq M.predicted among non-blacks MDRD (S/P/Bld) [Vol rate/Area] 63 mL/min/{1.73_m2} Normal >60 [facility] Comment on above: Result Comment: mL/m in/1.73m2 CKD-EPI Creatinine Equation (2020) Performed By: #### L 501.5200, L503.6030, L503.0106, L501.6710, L500.4050 ####[facility] [address] [place], [address] Globulin (S) [Mass/Vol] 4.4 g/dL High 2.2-4.2 [facility] Comment on above: Performed By: #### L 501.5200, L503.6030, L503.0106, L501.6710, L500.4050 ####[facility] [address] [place], [address] Glucose [Mass/Vol] 184 mg/dL High 70-99 [facility] Comment on above: Performed By: #### L 501.5200, L503.6030, L503.0106, L501.6710, L500.4050 ####[facility] [address] [place], [address] Potassium [Moles/Vol] 3.5 mmol/L Normal 3.3-5.1 [facility] Comment on above: Performed By: #### L 501.5200, L503.6030, L503.0106, L501.6710, L500.4050 ####[facility] [address] [place], [address] Sodium [Moles/Vol] 136 mmol/L Normal 133-145 [facility] Comment on above: Performed By: #### L 501.5200, L503.6030, L503.0106, L501.6710, L500.4050 ####[facility] [address] [place], [address] T PROT 8.5 g/dL High 5.9-8.4 [facility] Comment on above: Performed By: #### L 501.5200, L503.6030, L503.0106, L501.6710, L500.4050 ####[facility] [address] [place], [address] Urea nitrogen [Mass/Vol] 20 mg/dL High 4-19 [facility] Comment on above: Performed By: #### L 501.5200, L503.6030, L503.0106, L501.6710, L500.4050 ####[facility] [address] [place], [address] Erythrocyte Sed Rateon 01-12 SED RATE 51 mm/hr High 0-20 [facility] Comment on above: Performed By: #### L 3100.1350, L101.9900, L100.0100, L506.0200, L504.2610, L503.6550, L3100.1960, L501.2300, L3410.2350, L100.9950 ####[facility] [address] [place], [place], [phone] Ferritinon 01-12-2025 Ferritin [Mass/Vol] 239 ng/mL Normal 37-417 [facility] Comment on above: Performed By: #### L 3100.1350, L101.9900, L100.0100, L506.0200, L504.2610, L503.6550, L3100.1960, L501.2300, L3410.2350, L100.9950 ####[facility] [address] [place], [address] Folates,Serum (Folic Acid)on 01-12-2025 FOLATES,SERUM 11.60 ng/mL Normal 4.60-34.80 [facility] Comment on above: Order Comment: N Performed By: #### L 3100.1350, L101.9900, L100.0100, L506.0200, L504.2610, L503.6550, L3100.1960, L501.2300, L3410.2350, L100.9950 ####[facility] [address] [place], [address] Iron+Iron Binding Capacityon 01-12-2025 Iron [Mass/Vol] 39 ug/dL Low 65-175 [facility] Comment on above: Performed By: #### L 501.5200, L503.6030, L503.0106, L501.6710, L500.4050 ####[facility] [address] [place], [address] IRON SATURATION 11.7 Normal 9-55 [facility] Comment on above: Performed By: #### L 501.5200, L503.6030, L503.0106, L501.6710, L500.4050 ####[facility] [address] [place], [address] TIBC 334 ug/dL Normal 250-450 [facility] Comment on above: Performed By: #### L 501.5200, L503.6030, L503.0106, L501.6710, L500.4050 ####[facility] [address] [place], [address] UIBC 295 ug/dL Normal 228-428 [facility] Comment on above: Performed By: #### L 501.5200, L503.6030, L503.0106, L501.6710, L500.4050 ####[facility] [address] [place], [address] LDHon 01-12-2025 LDH 343 U/L High 87-241 [facility] Comment on above: Order Comment: 1 Performed By: #### L 3100.1350, L101.9900, L100.0100, L506.0200, L504.2610, L503.6550, L3100.1960, L501.2300, L3410.2350, L100.9950 ####[facility] [address] [place], [address] Magnesiumon 01-12-2025 Magnesium [Mass/Vol] 2.4 mg/dL High 1.5-2.2 [facility] Comment on above: Performed By: #### L 501.5200, L503.6030, L503.0106, L501.6710, L500.4050 ####[facility] [address] [place], [address] Oncology Visit Reporton 12-30 Oncology Visit Report Normal [facility] Phosphoruson 01-12-2025 Phosphate [Mass/Vol] 3.1 mg/dL Normal 2.7-4.5 [facility] Comment on above: Performed By: #### L 3100.1350, L101.9900, L100.0100, L506.0200, L504.2610, L503.6550, L3100.1960, L501.2300, L3410.2350, L100.9950 ####[facility] [address] [place], [address] Retic Panelon 01-12-2025 IM RET FRACTION 28.20 High 3.00-15.90 [facility] Comment on above: Performed By: #### L 3100.1350, L101.9900, L100.0100, L506.0200, L504.2610, L503.6550, L3100.1960, L501.2300, L3410.2350, L100.9950 ####[facility] [address] [place], [place], [id number] RET-HE 27.4 pg Low 30-35 [facility] Comment on above: Performed By: #### L 3100.1350, L101.9900, L100.0100, L506.0200, L504.2610, L503.6550, L3100.1960, L501.2300, L3410.2350, L100.9950 ####[facility] [address] [place], [address] Retic Count 3.06 High 0.5-1.5 [facility] Comment on above: Performed By: #### L 3100.1350, L101.9900, L100.0100, L506.0200, L504.2610, L503.6550, L3100.1960, L501.2300, L3410.2350, L100.9950 ####[facility] [address] [place], [address] Vitamin B12on 01-12-2025 Cobalamin (Vitamin B12) [Mass/Vol] 964 pg/mL High 180-914 [facility] Comment on above: Performed By: #### L 501.5200, L503.6030, L503.0106, L501.6710, L500.4050 ####[facility] [address] [place], [address] 36on 01-11-2025 36 Patient called and s aid insurance will cover generic Brilinta. 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 Normal [facility] 36on 01-07-2025 36 Lvm to speak with patient about medication. Left call back. Normal [facility] 36on 12-31-2024 36 I am happy to change order when they get back to you [facility] Urine Cultureon 12-26-2024 URC Pending Mixed Gram Pos Gram Neg Org [place] Count 50,000-80,000 Presumptive C albicans Presumptive C albicans Normal [facility] Comment on above: Performed By: #### M 100.2200 ####[facility] [address] [place], [address] CBC W/Diff, Automatedon 12-01 [employer] CELLS RARE Normal [facility] Comment on above: Performed By: #### L 100.0100 ####[facility] [address] [place], [address] TEAR DROP RARE Normal [facility] Comment on above: Performed By: #### L 100.0100 ####[facility] [address] [place], [address] Anisocytosis Ql (Bld) 2+ Normal [facility] Comment on above: Performed By: #### L 100.0100 ####[facility] [address] [place], [address] OVALOCYTE 2+ Normal [facility] Comment on above: Performed By: #### L 100.0100 ####[facility] [address] [place], [address] PLT EST ADEQUATE Normal ADEQ [facility] Comment on above: Performed By: #### L 100.0100 ####[facility] [address] [place], [address] POLYCHROMASIA 1+ Normal [facility] Comment on above: Performed By: #### L 100.0100 ####[facility] [address] [place], [address] SMEAR COMMENT SCANNED Normal [facility] Comment on above: Performed By: #### L 100.0100 ####[facility] [address] [place], [address] Absolute lymphocyte countOrd ered By: Juan Diego Davis on 12-23-2024 Lymphocytes Auto (Unsp spec) [#/Vol] 1.19 10*3/uL 0.83-4.51 [facility] Anion gap in Serum or Plasma Ordered By: Juan Diego Davis on 12-23-2024 Anion gap [Moles/Vol] 15 mmol/L 5-15 [facility] Automated lymphocyte count a s percentage of total leukocytesOrdered By: Juan Diego Davis on 12-23-2024 Lymphocytes/100 WBC Auto (Unsp spec) 16.1 % Low 19-41 [facility] BUN/creatinine ratioOrdered By: Juan Diego Davis on 12-23-2024 Urea nitrogen/Creatinine [Mass ratio] 17.4 mg/mg 10- [facility] Basic Metabolic Profile (BMP )on 12-23-2024 BUN/CRE 17.4 RATIO Normal - [facility] Comment on above: Performed By: #### L 501.9520, L500.2500, L501.5200 ####[facility] [address] [place], [address] Calcium [Mass/Vol] 9.2 mg/dL Normal 7.6-11.0 [facility] Comment on above: Performed By: #### L 501.9520, L500.2500, L501.5200 ####[facility] [address] [place], [address] Chloride [Moles/Vol] 99 mmol/L Normal 98-108 [facility] Comment on above: Performed By: #### L 501.9520, L500.2500, L501.5200 ####[facility] [address] [place], [address] CO2 [Moles/Vol] 24.8 mmol/L Normal 21.0-32.0 [facility] Comment on above: Performed By: #### L 501.9520, L500.2500, L501.5200 ####[facility] [address] [place], [address] Creatinine [Mass/Vol] 1.30 mg/dL High 0.70-1.20 [facility] Comment on above: Performed By: #### L 501.9520, L500.2500, L501.5200 ####[facility] [address] [place], [address] ECRCL 84.42 ml/min Normal 50-250 [facility] Comment on above: Performed By: #### L 501.9520, L500.2500, L501.5200 ####[facility] [address] [place], [address] GAP 15 Normal 5-15 [facility] Comment on above: Performed By: #### L 501.9520, L500.2500, L501.5200 ####[facility] [address] [place], [address] GFR/1.73 sq M.predicted among non-blacks MDRD (S/P/Bld) [Vol rate/Area] 63 mL/min/{1.73_m2} Normal >60 [facility] Comment on above: Result Comment: mL/m in/1.73m2 CKD-EPI Creatinine Equation (2020) Performed By: #### L 501.9520, L500.2500, L501.5200 ####[facility] [address] [place], [address] Glucose [Mass/Vol] 228 mg/dL High 70-99 [facility] Comment on above: Performed By: #### L 501.9520, L500.2500, L501.5200 ####[facility] [address] [place], [address] Potassium [Moles/Vol] 3.5 mmol/L Normal 3.3-5.1 [facility] Comment on above: Performed By: #### L 501.9520, L500.2500, L501.5200 ####[facility] [address] [place], [address] Sodium [Moles/Vol] 139 mmol/L Normal 133-145 [facility] Comment on above: Performed By: #### L 501.9520, L500.2500, L501.5200 ####[facility] [address] [place], [address] Urea nitrogen [Mass/Vol] 23 mg/dL High 4-19 [facility] Comment on above: Performed By: #### L 501.9520, L500.2500, L501.5200 ####[facility] [address] [place], [address] Basophil percentageOrdered B y: Juan Diego Davis on 12-23-2024 Basophils/100 WBC (Bld) 0.7 % 0-1 [facility] Bilirubin Test strip Ql (U)O rdered By: Juan Diego Davis on 12-23-2024 Bilirubin Ql (U) Negative Negative [facility] Blood manual differential co mment interpretation (narrative result)Ordered By: Juan Diego Davis on 12-23-2024 Manual differential comment Cedrick (Bld) [Interp] SCANNED [facility] Blood polychromasia detectio n by light microscopyOrdered By: Juan Diego Davis on 12-23-2024 Polychromasia LM Ql (Bld) 1+ [facility] Brain/Head without Contrasto n 12-23-2024 Brain/Head without Contrast Normal [facility] Carbon dioxide, total [Moles /volume] in Central venous bloodOrdered By: Juan Diego Davis on 12-23-2024 CO2 [Moles/Vol] 24.8 mmol/L 21.0-32.0 [facility] Chloride assayOrdered By: Vicky Davis on 12-23-2024 Chloride [Moles/Vol] 99 mmol/L 98-108 [facility] Emergency Department Summary on 12-23-2024 Emergency Department Summary Normal [facility] Eosinophil percentageOrdered By: Juan Diego Davis on 12-23-2024 Eosinophils/100 WBC (Bld) 3.0 % 0-5 [facility] Erythrocyte distribution wid th ratioOrdered By: Juan Diego Davis on 12-23-2024 Erythrocyte distribution width (RBC) [Ratio] 21.0 % High 11.6-14.6 [facility] Erythrocyte distribution wid th standard deviationOrdered By: Juan Diego Davis on 12-23-2024 Erythrocyte distribution width (RBC) [Ratio] 62.6 fl High 35.1-43.9 [facility] Glomerular filtration rate ( GFR) estimation/1.73 sq m using serum, plasma, or whole bOrdered By: Juan Diego Davis on 12-23-2024 GFR/1.73 sq M.predicted among non-blacks MDRD (S/P/Bld) [Vol rate/Area] 63 mL/min/{1.73_m2} >60 [facility] Hematocrit Auto (Bld) [Volum e fraction]Ordered By: Juan Diego Davis on 12-23-2024 Hematocrit (Bld) [Volume fraction] 33.7 % Low 40-54 [facility] Hemoglobin measurementOrdere d By: Juan Diego Davis on 12-23-2024 Hemoglobin (Bld) [Mass/Vol] 10.3 g/dL Low 13.0-16.5 [facility] Immature granulocytes/100 WB C Auto (Bld)Ordered By: Juan Diego Davis on 12-23-2024 Immature granulocytes/100 WBC (Bld) 1.200 % High 0.0-0.9 [facility] Influenza virus A and B and SARS-CoV-2 (COVID-19) and Respiratory syncytial virus RNAOrdered By: Juan Diego Davis on 12-23-2024 SARS-CoV-2 (COVID-19) RNA FLORES+probe Ql (Unsp spec) [facility] Ketones Test strip Ql (U)Ord ered By: Juan Diego Davis on 12-23-2024 Ketones Ql (U) Negative Negative [facility] M100.678on 12-23-2024 M100.678 Pending SARS-CoV-2 (COVID 19) Negative INFLUENZA A Negative INFLUENZA B Negative RSV PCR Negative Normal [facility] Comment on above: Performed By: #### M 100.678 ####[facility] [address] [place], [place], [id number] MCV (mean corpuscular volume ) determinationOrdered By: Juan Diego Davis on 12-23-2024 MCV (RBC) [Entitic vol] 82.8 fL 80-94 [facility] Magnesiumon 12-23-2024 Magnesium [Mass/Vol] 2.1 mg/dL Normal 1.5-2.2 [facility] Comment on above: Performed By: #### L 501.9520, L500.2500, L501.5200 ####[facility] [address] [place], [place], [id number] Magnesium measurement (mass/ volume)Ordered By: Juan Diego Davis on 12-23-2024 Magnesium (Unsp spec) [Mass/Vol] 2.1 mg/dL 1.5-2.2 [facility] Mean corpuscular hemoglobin (MCH) determinationOrdered By: Juan Diego Davis on 12-23-2024 MCH (RBC) [Entitic mass] 25.3 pg Low 27.0-32.0 [facility] Monocyte percentageOrdered B y: Juan Diego Davis on 12-23-2024 Monocytes/100 WBC (Bld) 10.4 % High 0-10 [facility] Mucus LM Ql (Urine sed)Order ed By: Juan Diego Davis on 12-23-2024 Mucus Ql (Urine sed) 0 SEEN /hpf [facility] Neutrophil percentageOrdered By: Juan Diego Davis on 12-23-2024 Neutrophils/100 WBC (Bld) 68.6 % 47-70 [facility] Nitrite Test strip Ql (U)Ord ered By: Juan Diego Davis on 12-23-2024 Nitrite Ql (U) Negative Negative [facility] No Panel InformationOrdered By: Juan Diego Davis on 12-23-2024 2+ [facility] Ovalocyte detectionOrdered B y: Juan Diego Davis on 12-23-2024 Ovalocytes LM Ql (Bld) 2+ [facility] Platelet countOrdered By: Vicky Davis on 12-23-2024 Platelets (Bld) [#/Vol] 223 10*3/uL 150-450 [facility] Platelet estimateOrdered By: Juan Diego Davis on 12-23-2024 Platelets LM Ql (Bld) ADEQUATE ADEQ [facility] Potassium measurement (mass/ volume)Ordered By: Juan Diego Davis on 12-23-2024 Potassium (Unsp spec) [Mass/Vol] 3.5 mmol/L 3.3-5.1 [facility] Protein Test strip Ql (U)Ord ered By: Juan Diego Davis on 12-23-2024 Protein Ql (U) 30 mg/dl High Negative [facility] RBC Auto (Bld) [#/Vol]Ordere d By: Juan Diego Davis on 12-23-2024 RBC (Bld) [#/Vol] 4.07 10*6/uL Low 4.6-6.2 [facility] Serum creatinine measurement (mass/volume)Ordered By: Juan Diego Davis on 12-23-2024 Creatinine [Mass/Vol] 1.30 mg/dL High 0.70-1.20 [facility] Serum glucose measurement (m ass/volume)Ordered By: Juan Diego Davis on 12-23-2024 Glucose [Mass/Vol] 228 mg/dL High 70-99 [facility] Serum or plasma calcium grazyna urement (mass/volume)Ordered By: Juan Diego Davis on 12-23-2024 Calcium [Mass/Vol] 9.2 mg/dL 7.6-11.0 [facility] Serum or plasma urea nitroge n measurement (mass/volume)Ordered By: Juan Diego Davis on 12-23-2024 Urea nitrogen [Mass/Vol] 23 mg/dL High 4-19 [facility] Sodium levelOrdered By: Saji Davis on 12-23-2024 Sodium [Moles/Vol] 139 mmol/L 133-145 [facility] Squamous epithelial cells de tection in urine sediment by light microscopyOrdered By: Juan Diego Davis on 12-23-2024 Epithelial cells.squamous LM Ql (Urine sed) 10-25 SEEN /hpf 0-5 [facility] TSH DL <= 0.005 mIU/L QnOrde red By: Juan Diego Davis on 12-23-2024 TSH Qn 1.160 uIU/mL 0.300-4.200 [facility] Target cell detectionOrdered By: Juan Diego Davis on 12-23-2024 Target cells LM Ql (Bld) RARE [facility] Teardrop cell detectionOrder ed By: Juan Diego Davis on 12-23-2024 Dacrocytes LM Ql (Bld) [facility] Thyroid Stim Hormone (TSH)on 12-23-2024 TSH 1.160 uIU/mL Normal 0.300-4.200 [facility] Comment on above: Performed By: #### L 501.9520, L500.2500, L501.5200 ####[facility] [address] [place], [address] Urinalysis, Completeon 12-23 BACTERIA 2+ /hpf Normal None Seen [facility] Comment on above: Order Comment: CLEAN CATCH Performed By: #### L 400.0001 ####[facility] [address] [place], [address] RBC 5-10 SEEN Normal 0-5 [facility] Comment on above: Order Comment: CLEAN CATCH Performed By: #### L 400.0001 ####[facility] [address] [place], [place], [address] YEAST 2+ /hpf Normal None Seen [facility] Comment on above: Order Comment: CLEAN CATCH Performed By: #### L 400.0001 ####[facility] [address] [place], [address] EPI,SQUAMOUS 10-25 SEEN Normal 0-5 [facility] Comment on above: Order Comment: CLEAN CATCH Performed By: #### L 400.0001 ####[facility] [address] [place], [address] WBC >100 SEEN Normal 0-5 [facility] Comment on above: Order Comment: CLEAN CATCH Performed By: #### L 400.0001 ####[facility] [address] [place], [address] Mucus Ql (Urine sed) 0 SEEN Normal [facility] Comment on above: Order Comment: CLEAN CATCH Performed By: #### L 400.0001 ####[facility] [address] [place], [address] Urine clarityOrdered By: Sarthak Davis on 12-23-2024 Clarity (U) Turbid Clear [facility] Urine color determinationOrd ered By: Juan Diego Davis on 12-23-2024 Color (U) Yellow Yellow [facility] Urine cultureOrdered By: Sarthak Davis on 12-23-2024 Bacteria identified Cx Nom (U) Mixed Gram Pos & Gram Neg Org Abnormal [facility] Bacteria identified Cx Nom (U) Presumptive C albicans Abnormal [facility] Urine glucose detectionOrder ed By: Juan Diego Davis on 12-23-2024 Glucose Ql (U) 1000 mg/dl High Normal [facility] Urine leukocyte esterase det ection by dipstickOrdered By: Juan Diego Davis on 12-23-2024 Leukocyte esterase Test strip Ql (U) 500 /ul High Negative [facility] Urine pHOrdered By: Juan Diego morales on 12-23-2024 pH (U) 6.0 [pH] 5.0 - 8.0 [facility] Urine sediment bacteria coun t by microscopy (number/high power field)Ordered By: Juan Diego Davis on 12-23-2024 Bacteria LM.HPF (Urine sed) [#/Area] 2 /[HPF] None Seen [facility] Urine sediment yeast count b y microscopy (number/high powered field)Ordered By: Juan Diego Davis on 12-23-2024 Yeast LM.HPF (Urine sed) [#/Area] 2 /[HPF] None Seen [facility] Urine specific gravity measu rementOrdered By: Juan Diego Davis on 12-23-2024 Specific gravity (U) [Rel density] 1.015 1.002-1.030 [facility] Urine urobilinogen measureme ntOrdered By: Juan Diego Davis on 12-23-2024 Urobilinogen Ql (U) Normal mg/dl Normal [facility] White blood cell (WBC) count Ordered By: Juan Diego Davis on 12-23-2024 WBC (Bld) [#/Vol] 7.4 10*3/uL 4.4-11.0 [facility] White blood cell countOrdere d By: Juan Diego Davis on 12-23-2024 White blood cell count >100 SEEN /hpf 0-5 [facility] Wound Ctr History AND Physic jeovanny 12-17-2024 Wound Ctr History & Physical Normal [facility] 36on 12-11-2024 36 Returning call to patient. They said that their insurance will stop paying for Brilinta January 30 2025. I called to see if they knew if they will cover the generic version or not. No answer LVM Normal [facility] Absolute lymphocyte countOrd ered By: Rito Lundberg on 12-09-2024 Lymphocytes Auto (Unsp spec) [#/Vol] 0.88 10*3/uL 0.83-4.51 [facility] Automated lymphocyte count a s percentage of total leukocytesOrdered By: Rito Lundberg on 12-09-2024 Lymphocytes/100 WBC Auto (Unsp spec) 5.1 % Low 19-41 [facility] Basophil percentageOrdered B y: Rito Lundberg on 12-09-2024 Basophils/100 WBC (Bld) 0.6 % 0-1 [facility] CBC W/Diff, Automatedon 11-30 Absolute Lymph 0.88 X10 3/uL Normal 0.83-4.51 [facility] Comment on above: Performed By: #### L 503.5119, L100.0100, L503.6030 ####[facility] [address] [place], [address] Absolute Neut 15.0 X10 3/uL High 2.0-7.7 [facility] Comment on above: Performed By: #### L 503.6550, L100.0100, L503.6030 ####[facility] [address] [place], [address] Basophils/100 WBC (Bld) 0.6 % Normal 0-1 [facility] Comment on above: Performed By: #### L 503.6550, L100.0100, L503.6030 ####[facility] [address] [place], [address] Eosinophils/100 WBC (Bld) 0.3 % Normal 0-5 [facility] Comment on above: Performed By: #### L 503.6550, L100.0100, L503.6030 ####[facility] [address] [place], [address] Erythrocyte distribution width (RBC) [Ratio] 19.0 % High 11.6-14.6 [facility] Comment on above: Performed By: #### L 503.6550, L100.0100, L503.6030 ####[facility] [address] [place], [address] Hematocrit (Bld) [Volume fraction] 31.2 % Low 40-54 [facility] Comment on above: Performed By: #### L 503.6550, L100.0100, L503.6030 ####[facility] [address] [place], [address] Hemoglobin (Bld) [Mass/Vol] 9.6 g/dL Low 13.0-16.5 [facility] Comment on above: Performed By: #### L 503.6550, L100.0100, L503.6030 ####[facility] [address] [place], [address] IG% 2.800 High 0.0-0.9 [facility] Comment on above: Result Comment: IG% - Immature Granulocytes (promyelocytes, myelocytes andmetamyelocytes) > 1% indicates that a LEFT SHIFT is Present. Performed By: #### L 503.6550, L100.0100, L503.6030 ####[facility] [address] [place], [address] Lymphocytes/100 WBC (Bld) 5.1 % Low 19-41 [facility] Comment on above: Performed By: #### L 503.6550, L100.0100, L503.6030 ####[facility] [address] [place], [address] MCH (RBC) [Entitic mass] 24.3 pg Low 27.0-32.0 [facility] Comment on above: Performed By: #### L 503.6550, L100.0100, L503.6030 ####[facility] [address] [place], [address] MCHC (RBC) [Mass/Vol] 30.8 g/dL Low 32-36 [facility] Comment on above: Performed By: #### L 503.6550, L100.0100, L503.6030 ####[facility] [address] [place], [address] MCV (RBC) [Entitic vol] 79.0 fL Low 80-94 [facility] Comment on above: Performed By: #### L 503.6550, L100.0100, L503.6030 ####[facility] [address] [place], [address] Monocytes/100 WBC (Bld) 4.9 % Normal 0-10 [facility] Comment on above: Performed By: #### L 503.6550, L100.0100, L503.6030 ####[facility] [address] [place], [address] Neutrophils/100 WBC (Bld) 86.3 % High 47-70 [facility] Comment on above: Performed By: #### L 503.6550, L100.0100, L503.6030 ####[facility] [address] [place], [address] Nucleated RBC (Bld) [#/Vol] 0 10*3/uL Normal 0-5 [facility] Comment on above: Performed By: #### L 503.6550, L100.0100, L503.6030 ####[facility] [address] [place], [address] Platelet mean volume (Bld) [Entitic vol] 10.3 fL Normal 6.2-12.0 [facility] Comment on above: Performed By: #### L 503.6550, L100.0100, L503.6030 ####[facility] [address] [place], [address] Platelets (Bld) [#/Vol] 275 10*3/uL Normal 150-450 [facility] Comment on above: Performed By: #### L 503.6550, L100.0100, L503.6030 ####[facility] [address] [place], [address] RBC (Bld) [#/Vol] 3.95 10*6/uL Low 4.6-6.2 [facility] Comment on above: Performed By: #### L 503.6550, L100.0100, L503.6030 ####[facility] [address] [place], [address] RDW SD 52.8 fl High 35.1-43.9 [facility] Comment on above: Performed By: #### L 503.6550, L100.0100, L503.6030 ####[facility] [address] [place], [address] WBC (Bld) [#/Vol] 17.3 10*3/uL High 4.4-11.0 [facility] Comment on above: Performed By: #### L 503.6550, L100.0100, L503.6030 ####[facility] [address] [place], [address] Eosinophil percentageOrdered By: Rito Lundberg on 12-09-2024 Eosinophils/100 WBC (Bld) 0.3 % 0-5 [facility] Erythrocyte distribution wid th ratioOrdered By: Rito Lundberg on 12-09-2024 Erythrocyte distribution width (RBC) [Ratio] 19.0 % High 11.6-14.6 [facility] Erythrocyte distribution wid th standard deviationOrdered By: Rito Lundberg on 12-09-2024 Erythrocyte distribution width (RBC) [Ratio] 52.8 fl High 35.1-43.9 [facility] Ferritinon 12-09-2024 Ferritin [Mass/Vol] 237 ng/mL Normal 37-417 [facility] Comment on above: Performed By: #### L 503.6550, L100.0100, L503.6030 ####[facility] [address] [place], [address] Hematocrit Auto (Bld) [Volum e fraction]Ordered By: Rito uLndberg on 12-09-2024 Hematocrit (Bld) [Volume fraction] 31.2 % Low 40-54 [facility] Hemoglobin measurementOrdere d By: Rito Lundberg on 12-09-2024 Hemoglobin (Bld) [Mass/Vol] 9.6 g/dL Low 13.0-16.5 [facility] Immature granulocytes/100 WB C Auto (Bld)Ordered By: Rito Lundberg on 12-09-2024 Immature granulocytes/100 WBC (Bld) 2.800 % High 0.0-0.9 [facility] Iron measurement (mass/mass) Ordered By: Rito Lundberg on 12-09-2024 Iron (Unsp spec) [Mass/Mass] 56 ug/dL Low 65-175 [facility] Iron+Iron Binding Capacityon 12-09-2024 Iron [Mass/Vol] 56 ug/dL Low 65-175 [facility] Comment on above: Performed By: #### L 503.6550, L100.0100, L503.6030 ####[facility] [address] [place], [address] IRON SATURATION 19.0 Normal 9-55 [facility] Comment on above: Performed By: #### L 503.6550, L100.0100, L503.6030 ####[facility] [address] [place], [address] TIBC 293 ug/dL Normal 250-450 [facility] Comment on above: Performed By: #### L 503.6550, L100.0100, L503.6030 ####[facility] [address] [place], [address] UIBC 237 ug/dL Normal 228-428 [facility] Comment on above: Performed By: #### L 503.6550, L100.0100, L503.6030 ####[facility] [address] [place], [address] MCV (mean corpuscular volume ) determinationOrdered By: Rito Lundberg on 12-09-2024 MCV (RBC) [Entitic vol] 79.0 fL Low 80-94 [facility] Mean corpuscular hemoglobin (MCH) determinationOrdered By: Rito Lundberg on 12-09-2024 MCH (RBC) [Entitic mass] 24.3 pg Low 27.0-32.0 [facility] Monocyte percentageOrdered B y: Rito Lundberg on 12-09-2024 Monocytes/100 WBC (Bld) 4.9 % 0-10 [facility] Neutrophil percentageOrdered By: Rito Lundberg on 12-09-2024 Neutrophils/100 WBC (Bld) 86.3 % High 47-70 [facility] No Panel InformationOrdered By: Rito Tamika on 12-09-2024 237 ug/dL 228-428 [facility] Platelet countOrdered By: Chanell sandyearlene Lundberg on 12-09-2024 Platelets (Bld) [#/Vol] 275 10*3/uL 150-450 [facility] RBC Auto (Bld) [#/Vol]Ordere d By: Rito Lundberg on 12-09-2024 RBC (Bld) [#/Vol] 3.95 10*6/uL Low 4.6-6.2 [facility] Serum or plasma ferritin elizabeth surement (mass/volume)Ordered By: Hienearlene Lundberg on 12-09-2024 Ferritin [Mass/Vol] 237 ng/mL 37-417 [facility] Serum or plasma iron saturat ion measurement (mass fraction)Ordered By: Rito Lundberg on 12-09-2024 Iron saturation [Mass fraction] 19.0 % 9-55 [facility] White blood cell (WBC) count Ordered By: Hienearlene Lundberg on 12-09-2024 WBC (Bld) [#/Vol] 17.3 10*3/uL High 4.4-11.0 [facility] Culture, Blood (WB)on 2024 CUB Blood cultures x2, f rom two different sites No growth in 5 days. Normal [facility] Comment on above: Performed By: #### L 500.4050, L100.0100, M200.1000, L503.6005, L501.4021 ####[facility] [address] [place], [address] Basic Metabolic Profile (BMP )on 11-29-2024 BUN Normal - [facility] Comment on above: Result Comment: Canc elled via OM: Order cancelled - Patient discharged Performed By: #### L 100.0100, L500.2500 ####[facility] [address] [place], [address] BUN/CRE Normal - [facility] Comment on above: Result Comment: Canc elled via OM: Order cancelled - Patient discharged Performed By: #### L 100.0100, L500.2500 ####[facility] [address] [place], [address] Calcium Normal 7.6-11.0 [facility] Comment on above: Result Comment: Canc elled via OM: Order cancelled - Patient discharged Performed By: #### L 100.0100, L500.2500 ####[facility] [address] [place], [address] CL Normal 98-108 [facility] Comment on above: Result Comment: Canc elled via OM: Order cancelled - Patient discharged Performed By: #### L 100.0100, L500.2500 ####[facility] [address] [place], [address] CO2 Normal 21.0-32.0 [facility] Comment on above: Result Comment: Canc elled via OM: Order cancelled - Patient discharged Performed By: #### L 100.0100, L500.2500 ####[facility] [address] [place], [address] CREAT,SERUM Normal 0.70-1.20 [facility] Comment on above: Result Comment: Canc elled via OM: Order cancelled - Patient discharged Performed By: #### L 100.0100, L500.2500 ####[facility] [address] [place], [address] eGFR Normal >60 [facility] Comment on above: Result Comment: Canc elled via OM: Order cancelled - Patient discharged Performed By: #### L 100.0100, L500.2500 ####[facility] [address] [place], [address] GAP Normal 5-15 [facility] Comment on above: Result Comment: Canc elled via OM: Order cancelled - Patient discharged Performed By: #### L 100.0100, L500.2500 ####[facility] [address] [place], [address] GLU Normal 70-99 [facility] Comment on above: Result Comment: Canc elled via OM: Order cancelled - Patient discharged Performed By: #### L 100.0100, L500.2500 ####[facility] [address] [place], [address] Potassium Normal 3.3-5.1 [facility] Comment on above: Result Comment: Canc elled via OM: Order cancelled - Patient discharged Performed By: #### L 100.0100, L500.2500 ####[facility] [address] [place], [address] Basic Metabolic Profile (BMP) Normal 133-145 [facility] Comment on above: Result Comment: Canc elled via OM: Order cancelled - Patient discharged Performed By: #### L 100.0100, L500.2500 ####[facility] [address] [place], [address] CBC W/Diff, Automatedon 08-3 Absolute Neut Normal 2.0-7.7 [facility] Comment on above: Result Comment: Canc elled via OM: Order cancelled - Patient discharged Performed By: #### L 100.0100, L500.2500 ####[facility] [address] [place], [address] HCT Normal 40-54 [facility] Comment on above: Result Comment: Canc elled via OM: Order cancelled - Patient discharged Performed By: #### L 100.0100, L500.2500 ####[facility] [address] [place], [address] HGB Normal 13.0-16.5 [facility] Comment on above: Result Comment: Canc elled via OM: Order cancelled - Patient discharged Performed By: #### L 100.0100, L500.2500 ####[facility] [address] [place], [address] MCH Normal 27.0-32.0 [facility] Comment on above: Result Comment: Canc elled via OM: Order cancelled - Patient discharged Performed By: #### L 100.0100, L500.2500 ####[facility] [address] [place], [address] MCHC Normal 32-36 [facility] Comment on above: Result Comment: Canc elled via OM: Order cancelled - Patient discharged Performed By: #### L 100.0100, L500.2500 ####[facility] [address] [place], [address] MCV Normal 80-94 [facility] Comment on above: Result Comment: Canc elled via OM: Order cancelled - Patient discharged Performed By: #### L 100.0100, L500.2500 ####[facility] [address] [place], [address] NEUT% Normal 47-70 [facility] Comment on above: Result Comment: Canc elled via OM: Order cancelled - Patient discharged Performed By: #### L 100.0100, L500.2500 ####[facility] [address] [place], [address] PLT Normal 150-450 [facility] Comment on above: Result Comment: Canc elled via OM: Order cancelled - Patient discharged Performed By: #### L 100.0100, L500.2500 ####[facility] [address] [place], [address] RBC Normal 4.6-6.2 [facility] Comment on above: Result Comment: Canc elled via OM: Order cancelled - Patient discharged Performed By: #### L 100.0100, L500.2500 ####[facility] [address] [place], [address] RDW CV Normal 11.6-14.6 [facility] Comment on above: Result Comment: Canc elled via OM: Order cancelled - Patient discharged Performed By: #### L 100.0100, L500.2500 ####[facility] [address] [place], [address] RDW SD Normal 35.1-43.9 [facility] Comment on above: Result Comment: Canc elled via OM: Order cancelled - Patient discharged Performed By: #### L 100.0100, L500.2500 ####[facility] [address] [place], [address] WBC Normal 4.4-11.0 [facility] Comment on above: Result Comment: Canc elled via OM: Order cancelled - Patient discharged Performed By: #### L 100.0100, L500.2500 ####[facility] [address] [place], [address] Urine Cultureon 11-29-2024 URC Normal [facility] Comment on above: Performed By: #### M 100.2200, L400.0001 ####[facility] [address] [place], [address] Absolute lymphocyte countOrd ered By: Ochoa Johsnon on 11-28-2024 Lymphocytes Auto (Unsp spec) [#/Vol] 1.28 10*3/uL 0.83-4.51 [facility] Anion gap in Serum or Plasma Ordered By: Ochoa Johnson on 11-28-2024 Anion gap [Moles/Vol] 12 mmol/L 5-15 [facility] Automated lymphocyte count a s percentage of total leukocytesOrdered By: Ochoa Johnson on 11-28-2024 Lymphocytes/100 WBC Auto (Unsp spec) 11.2 % Low 19-41 [facility] BUN/creatinine ratioOrdered By: Ochoa Johnson on 11-28-2024 Urea nitrogen/Creatinine [Mass ratio] 21.1 mg/mg High 10-20 [facility] Basic Metabolic Profile (BMP )on 11-28-2024 BUN/CRE 21.1 RATIO High 10-20 [facility] Comment on above: Performed By: #### L 500.2500, L100.0100 ####[facility] [address] [place], [address] Calcium [Mass/Vol] 9.0 mg/dL Normal 7.6-11.0 [facility] Comment on above: Performed By: #### L 500.2500, L100.0100 ####[facility] [address] [place], [address] Chloride [Moles/Vol] 102 mmol/L Normal 98-108 [facility] Comment on above: Performed By: #### L 500.2500, L100.0100 ####[facility] [address] [place], [address] CO2 [Moles/Vol] 20.5 mmol/L Low 21.0-32.0 [facility] Comment on above: Performed By: #### L 500.2500, L100.0100 ####[facility] [address] [place], [address] Creatinine [Mass/Vol] 1.23 mg/dL High 0.70-1.20 [facility] Comment on above: Performed By: #### L 500.2500, L100.0100 ####[facility] [address] [place], [address] ECRCL 90.61 ml/min Normal 50-250 [facility] Comment on above: Performed By: #### L 500.2500, L100.0100 ####[facility] [address] [place], [address] GAP 12 Normal 5-15 [facility] Comment on above: Performed By: #### L 500.2500, L100.0100 ####[facility] [address] [place], [address] GFR/1.73 sq M.predicted among non-blacks MDRD (S/P/Bld) [Vol rate/Area] 67 mL/min/{1.73_m2} Normal >60 [facility] Comment on above: Result Comment: mL/m in/1.73m2 CKD-EPI Creatinine Equation (2020) Performed By: #### L 500.2500, L100.0100 ####[facility] [address] [place], [address] Glucose [Mass/Vol] 242 mg/dL High 70-99 [facility] Comment on above: Performed By: #### L 500.2500, L100.0100 ####[facility] [address] [place], [address] Potassium [Moles/Vol] 3.8 mmol/L Normal 3.3-5.1 [facility] Comment on above: Performed By: #### L 500.2500, L100.0100 ####[facility] [address] [place], [address] Sodium [Moles/Vol] 135 mmol/L Normal 133-145 [facility] Comment on above: Performed By: #### L 500.2500, L100.0100 ####[facility] [address] [place], [address] Urea nitrogen [Mass/Vol] 26 mg/dL High 4-19 [facility] Comment on above: Performed By: #### L 500.2500, L100.0100 ####[facility] [address] [place], [address] Basophil percentageOrdered B y: Ochoa Johnson on 11-28-2024 Basophils/100 WBC (Bld) 0.3 % 0-1 [facility] Bedside Glucoseon 11-28-2024 FINGERSTICK GLU 223 mg/dL High 74-106 [facility] Comment on above: Result Comment: ANI GEMENT OF PATIENT CARE PER NURSING PROTOCOL Performed By: #### L 501.080 ####[facility] [address] [place], [address] FINGERSTICK GLU 228 mg/dL High 74-106 [facility] Comment on above: Result Comment: ANI GEMENT OF PATIENT CARE PER NURSING PROTOCOL Performed By: #### L 501.080 ####[facility] [address] [place], [address] CBC W/Diff, Automatedon 08-3 0-2025 Absolute Lymph 1.28 X10 3/uL Normal 0.83-4.51 [facility] Comment on above: Performed By: #### L 500.2500, L100.0100 ####[facility] [address] [place], [address] Absolute Neut 8.9 X10 3/uL High 2.0-7.7 [facility] Comment on above: Performed By: #### L 500.2500, L100.0100 ####[facility] [address] [place], [address] Basophils/100 WBC (Bld) 0.3 % Normal 0-1 [facility] Comment on above: Performed By: #### L 500.2500, L100.0100 ####[facility] [address] [place], [address] Eosinophils/100 WBC (Bld) 1.7 % Normal 0-5 [facility] Comment on above: Performed By: #### L 500.2500, L100.0100 ####[facility] [address] [place], [address] Erythrocyte distribution width (RBC) [Ratio] 17.9 % High 11.6-14.6 [facility] Comment on above: Performed By: #### L 500.2500, L100.0100 ####[facility] [address] [place], [address] Hematocrit (Bld) [Volume fraction] 27.4 % Low 40-54 [facility] Comment on above: Performed By: #### L 500.2500, L100.0100 ####[facility] [address] [place], [address] Hemoglobin (Bld) [Mass/Vol] 8.6 g/dL Low 13.0-16.5 [facility] Comment on above: Performed By: #### L 500.2500, L100.0100 ####[facility] [address] [place], [address] IG% 0.900 Normal 0.0-0.9 [facility] Comment on above: Result Comment: IG% - Immature Granulocytes (promyelocytes, myelocytes andmetamyelocytes) > 1% indicates that a LEFT SHIFT is Present. Performed By: #### L 500.2500, L100.0100 ####[facility] [address] [place], [address] Lymphocytes/100 WBC (Bld) 11.2 % Low 19-41 [facility] Comment on above: Performed By: #### L 500.2500, L100.0100 ####[facility] [address] [place], [address] MCH (RBC) [Entitic mass] 24.3 pg Low 27.0-32.0 [facility] Comment on above: Performed By: #### L 500.2500, L100.0100 ####[facility] [address] [place], [address] MCHC (RBC) [Mass/Vol] 31.4 g/dL Low 32-36 [facility] Comment on above: Performed By: #### L 500.2500, L100.0100 ####[facility] [address] [place], [address] MCV (RBC) [Entitic vol] 77.4 fL Low 80-94 [facility] Comment on above: Performed By: #### L 500.2500, L100.0100 ####[facility] [address] [place], [address] Monocytes/100 WBC (Bld) 7.9 % Normal 0-10 [facility] Comment on above: Performed By: #### L 500.2500, L100.0100 ####[facility] [address] [place], [address] Neutrophils/100 WBC (Bld) 78.0 % High 47-70 [facility] Comment on above: Performed By: #### L 500.2500, L100.0100 ####[facility] [address] [place], [address] Nucleated RBC (Bld) [#/Vol] 0 10*3/uL Normal 0-5 [facility] Comment on above: Performed By: #### L 500.2500, L100.0100 ####[facility] [address] [place], [address] Platelet mean volume (Bld) [Entitic vol] 10.1 fL Normal 6.2-12.0 [facility] Comment on above: Performed By: #### L 500.2500, L100.0100 ####[facility] [address] [place], [address] Platelets (Bld) [#/Vol] 195 10*3/uL Normal 150-450 [facility] Comment on above: Performed By: #### L 500.2500, L100.0100 ####[facility] [address] [place], [address] RBC (Bld) [#/Vol] 3.54 10*6/uL Low 4.6-6.2 [facility] Comment on above: Performed By: #### L 500.2500, L100.0100 ####[facility] [address] [place], [address] RDW SD 51.1 fl High 35.1-43.9 [facility] Comment on above: Performed By: #### L 500.2500, L100.0100 ####[facility] [address] [place], [address] WBC (Bld) [#/Vol] 11.5 10*3/uL High 4.4-11.0 [facility] Comment on above: Performed By: #### L 500.2500, L100.0100 ####[facility] [address] [facility] [address] [place], [address] Carbon dioxide, total [Moles /volume] in Central venous bloodOrdered By: Ochoa Johnson on 11-28-2024 CO2 [Moles/Vol] 20.5 mmol/L Low 21.0-32.0 [facility] Chloride assayOrdered By: Fernando Johnson on 11-28-2024 Chloride [Moles/Vol] 102 mmol/L 98-108 [facility] Eosinophil percentageOrdered By: Ochoa Johnson on 11-28-2024 Eosinophils/100 WBC (Bld) 1.7 % 0-5 [facility] Erythrocyte distribution wid th ratioOrdered By: Ochoa Johnson on 11-28-2024 Erythrocyte distribution width (RBC) [Ratio] 17.9 % High 11.6-14.6 [facility] Erythrocyte distribution wid th standard deviationOrdered By: Ochoa Johnson on 11-28-2024 Erythrocyte distribution width (RBC) [Ratio] 51.1 fl High 35.1-43.9 [facility] Glomerular filtration rate ( GFR) estimation/1.73 sq m using serum, plasma, or whole bOrdered By: Ochoa Johnson on 11-28-2024 GFR/1.73 sq M.predicted among non-blacks MDRD (S/P/Bld) [Vol rate/Area] 67 mL/min/{1.73_m2} >60 [facility] Glucose measurement at bedsi deOrdered By: Ochoa Johnson on 11-28-2024 Glucose [Mass/Vol] 223 mg/dL High 74-106 [facility] Hematocrit Auto (Bld) [Volum e fraction]Ordered By: Ochoa Johnson on 11-28-2024 Hematocrit (Bld) [Volume fraction] 27.4 % Low 40-54 [facility] Hemoglobin measurementOrdere d By: Ochoa Johnson on 11-28-2024 Hemoglobin (Bld) [Mass/Vol] 8.6 g/dL Low 13.0-16.5 [facility] Immature granulocytes/100 WB C Auto (Bld)Ordered By: Ochoa Johnson on 11-28-2024 Immature granulocytes/100 WBC (Bld) 0.900 % 0.0-0.9 [facility] MCV (mean corpuscular volume ) determinationOrdered By: Ochoa Johnson on 11-28-2024 MCV (RBC) [Entitic vol] 77.4 fL Low 80-94 [facility] Mean corpuscular hemoglobin (MCH) determinationOrdered By: Ochoa Johnson on 11-28-2024 MCH (RBC) [Entitic mass] 24.3 pg Low 27.0-32.0 [facility] Monocyte percentageOrdered B y: Ochoa Johnson on 11-28-2024 Monocytes/100 WBC (Bld) 7.9 % 0-10 [facility] Neutrophil percentageOrdered By: Ochoa Johnson on 11-28-2024 Neutrophils/100 WBC (Bld) 78.0 % High 47-70 [facility] Platelet countOrdered By: Fernando Johnson on 11-28-2024 Platelets (Bld) [#/Vol] 195 10*3/uL 150-450 [facility] Potassium measurement (mass/ volume)Ordered By: Ochoa Johnson on 11-28-2024 Potassium (Unsp spec) [Mass/Vol] 3.8 mmol/L 3.3-5.1 [facility] RBC Auto (Bld) [#/Vol]Ordere d By: Ochoa Johnson on 11-28-2024 RBC (Bld) [#/Vol] 3.54 10*6/uL Low 4.6-6.2 [facility] Serum creatinine measurement (mass/volume)Ordered By: Ochoa Johnson on 11-28-2024 Creatinine [Mass/Vol] 1.23 mg/dL High 0.70-1.20 [facility] Serum glucose measurement (m ass/volume)Ordered By: Ochoa Johnson on 11-28-2024 Glucose [Mass/Vol] 242 mg/dL High 70-99 [facility] Serum or plasma calcium grazyna urement (mass/volume)Ordered By: Ochoa Johnson on 11-28-2024 Calcium [Mass/Vol] 9.0 mg/dL 7.6-11.0 [facility] Serum or plasma urea nitroge n measurement (mass/volume)Ordered By: Ochoa Johnson on 11-28-2024 Urea nitrogen [Mass/Vol] 26 mg/dL High 4-19 [facility] Sodium levelOrdered By: Ochoa Johnson on 11-28-2024 Sodium [Moles/Vol] 135 mmol/L 133-145 [facility] Vancomycin, Trough Levelon 0 11-28-2024 VANCO, TROUGH 16.7 ug/mL High 5.0-15.0 [facility] Comment on above: Order Comment: Comme nts: DRAW 30 MIN PRIOR TO [id number] Result Comment: Luciano mmended goal trough ranges [...] therapy recommended for serious lifethreatening infections include:- Drjvrhqmuf-Cbknclbpgijm-Dssgcbfcn (Ventilator/Healtcare Associated)-SepsisPLEASE CONTACT PHARMACY SERVICES (#1372) FOR INTERPRETATIONOF RESULTS. Performed By: #### L 349.6674 ####[facility] [address] [place], [address] White blood cell (WBC) count Ordered By: Ochoa Johnson on 08-30-2025 WBC (Bld) [#/Vol] 11.5 10*3/uL High 4.4-11.0 [facility] Basic Metabolic Profile (BMP )on 11-27-2024 BUN/CRE 21.5 RATIO High 10-20 [facility] Comment on above: Performed By: #### L 100.0100, L501.9985, L500.2500 ####[facility] [address] [place], [address] Calcium [Mass/Vol] 9.0 mg/dL Normal 7.6-11.0 [facility] Comment on above: Performed By: #### L 100.0100, L501.9985, L500.2500 ####[facility] [address] [place], [address] Chloride [Moles/Vol] 104 mmol/L Normal 98-108 [facility] Comment on above: Performed By: #### L 100.0100, L501.9985, L500.2500 ####[facility] [address] [place], [address] CO2 [Moles/Vol] 22.2 mmol/L Normal 21.0-32.0 [facility] Comment on above: Performed By: #### L 100.0100, L501.9985, L500.2500 ####[facility] [address] [place], [address] Creatinine [Mass/Vol] 1.37 mg/dL High 0.70-1.20 [facility] Comment on above: Performed By: #### L 100.0100, L501.9985, L500.2500 ####[facility] [address] [place], [address] ECRCL 81.35 ml/min Normal 50-250 [facility] Comment on above: Performed By: #### L 100.0100, L501.9985, L500.2500 ####[facility] [address] [place], [address] GAP 11 Normal 5-15 [facility] Comment on above: Performed By: #### L 100.0100, L501.9985, L500.2500 ####[facility] [address] [place], [address] GFR/1.73 sq M.predicted among non-blacks MDRD (S/P/Bld) [Vol rate/Area] 59 mL/min/{1.73_m2} Low >60 [facility] Comment on above: Result Comment: mL/m in/1.73m2 CKD-EPI Creatinine Equation (2020) Performed By: #### L 100.0100, L501.9985, L500.2500 ####[facility] [address] [place], [address] Glucose [Mass/Vol] 203 mg/dL High 70-99 [facility] Comment on above: Performed By: #### L 100.0100, L501.9985, L500.2500 ####[facility] [address] [place], [address] Potassium [Moles/Vol] 3.8 mmol/L Normal 3.3-5.1 [facility] Comment on above: Performed By: #### L 100.0100, L501.9985, L500.2500 ####[facility] [address] [place], [address] Sodium [Moles/Vol] 137 mmol/L Normal 133-145 [facility] Comment on above: Performed By: #### L 100.0100, L501.9985, L500.2500 ####[facility] [address] [place], [address] Urea nitrogen [Mass/Vol] 29 mg/dL High 4-19 [facility] Comment on above: Performed By: #### L 100.0100, L501.9985, L500.2500 ####[facility] [address] [place], [address] Bedside Glucoseon 11-27-2024 FINGERSTICK GLU 397 mg/dL High [address] [place] [address] Comment on above: Result Comment: ANI GEMENT OF PATIENT CARE PER NURSING PROTOCOL Performed By: #### L 501.080 ####[facility] [address] [place], [address] FINGERSTICK GLU 241 mg/dL High [address] [place] [address] Comment on above: Result Comment: ANI GEMENT OF PATIENT CARE PER NURSING PROTOCOL Performed By: #### L 501.080 ####[facility] [address] [place], [address] FINGERSTICK GLU 436 mg/dL High [address] [place] [address] Comment on above: Result Comment: ANI GEMENT OF PATIENT CARE PER NURSING PROTOCOL Performed By: #### L 501.080 ####[facility] [address] [place], [address] FINGERSTICK GLU 181 mg/dL High [address] [place] [address] Comment on above: Result Comment: ANI GEMENT OF PATIENT CARE PER NURSING PROTOCOL Performed By: #### L 501.080 ####[facility] [address] [place], [address] FINGERSTICK GLU 467 mg/dL Invalid Interpretation Code -[address] [place] [address] Comment on above: Result Comment: Dr Melisa maharaj FollowedMANAGEMENT OF PATIENT CARE PER NURSING PROTOCOL Performed By: #### L 501.080 ####[facility] [address] [place], [address] CBC W/Diff, Automatedon 10-31 Absolute Lymph 1.63 X10 3/uL Normal 0.83-4.51 [facility] Comment on above: Performed By: #### L 100.0100, L501.9985, L500.2500 ####[facility] [address] [place], [address] Absolute Neut 9.4 X10 3/uL High 2.0-7.7 [facility] Comment on above: Performed By: #### L 100.0100, L501.9985, L500.2500 ####[facility] [address] [place], [address] Basophils/100 WBC (Bld) 0.3 % Normal 0-1 [facility] Comment on above: Performed By: #### L 100.0100, L501.9985, L500.2500 ####[facility] [address] [place], [address] Eosinophils/100 WBC (Bld) 1.2 % Normal 0-5 [facility] Comment on above: Performed By: #### L 100.0100, L501.9985, L500.2500 ####[facility] [address] [place], [address] Erythrocyte distribution width (RBC) [Ratio] 18.6 % High 11.6-14.6 [facility] Comment on above: Performed By: #### L 100.0100, L501.9985, L500.2500 ####[facility] [address] [place], [address] Hematocrit (Bld) [Volume fraction] 28.5 % Low 40-54 [facility] Comment on above: Performed By: #### L 100.0100, L501.9985, L500.2500 ####[facility] [address] [place], [address] Hemoglobin (Bld) [Mass/Vol] 8.9 g/dL Low 13.0-16.5 [facility] Comment on above: Performed By: #### L 100.0100, L501.9985, L500.2500 ####[facility] [address] [place], [address] IG% 0.800 Normal 0.0-0.9 [facility] Comment on above: Result Comment: IG% - Immature Granulocytes (promyelocytes, myelocytes andmetamyelocytes) > 1% indicates that a LEFT SHIFT is Present. Performed By: #### L 100.0100, L501.9985, L500.2500 ####[facility] [address] [place], [address] Lymphocytes/100 WBC (Bld) 13.0 % Low 19-41 [facility] Comment on above: Performed By: #### L 100.0100, L501.9985, L500.2500 ####[facility] [address] [place], [address] MCH (RBC) [Entitic mass] 24.3 pg Low 27.0-32.0 [facility] Comment on above: Performed By: #### L 100.0100, L501.9985, L500.2500 ####[facility] [address] [place], [address] MCHC (RBC) [Mass/Vol] 31.2 g/dL Low 32-36 [facility] Comment on above: Performed By: #### L 100.0100, L501.9985, L500.2500 ####[facility] [address] [place], [address] MCV (RBC) [Entitic vol] 77.9 fL Low 80-94 [facility] Comment on above: Performed By: #### L 100.0100, L501.9985, L500.2500 ####[facility] [address] [place], [address] Monocytes/100 WBC (Bld) 10.3 % High 0-10 [facility] Comment on above: Performed By: #### L 100.0100, L501.9985, L500.2500 ####[facility] [address] [place], [address] Neutrophils/100 WBC (Bld) 74.4 % High 47-70 [facility] Comment on above: Performed By: #### L 100.0100, L501.9985, L500.2500 ####[facility] [address] [place], [address] Nucleated RBC (Bld) [#/Vol] 0 10*3/uL Normal 0-5 [facility] Comment on above: Performed By: #### L 100.0100, L501.9985, L500.2500 ####[facility] [address] [place], [address] Platelet mean volume (Bld) [Entitic vol] 10.0 fL Normal 6.2-12.0 [facility] Comment on above: Performed By: #### L 100.0100, L501.9985, L500.2500 ####[facility] [address] [place], [address] Platelets (Bld) [#/Vol] 191 10*3/uL Normal 150-450 [facility] Comment on above: Performed By: #### L 100.0100, L501.9985, L500.2500 ####[facility] [address] [place], [address] RBC (Bld) [#/Vol] 3.66 10*6/uL Low 4.6-6.2 [facility] Comment on above: Performed By: #### L 100.0100, L501.9985, L500.2500 ####[facility] [address] [place], [address] RDW SD 51.8 fl High 35.1-43.9 [facility] Comment on above: Performed By: #### L 100.0100, L501.9985, L500.2500 ####[facility] [address] [place], [address] WBC (Bld) [#/Vol] 12.6 10*3/uL High 4.4-11.0 [facility] Comment on above: Performed By: #### L 100.0100, L501.9985, L500.2500 ####[facility] [address] [place], [address] Hemoglobin A1con 11-27-2024 HbA1c (Bld) [Mass fraction] 9.6 % High <=5.6 [facility] Comment on above: Result Comment: Norm al < 5.7 % Prediabetic 5.7 - 6.4 % Diabetic >or= 6.5 % Please note range changes. Performed By: #### L 100.0100, L501.9985, L500.2500 ####[facility] [address], [address] Hemoglobin A1c percentageOrd ered By: Ochoa Johnson on 11-27-2024 HbA1c (Bld) [Mass fraction] 9.6 % High <5.7 [facility] Trough vancomycin levelOrder ed By: Ochoa Johnson on 11-27-2024 Vancomycin trough [Mass/Vol] 16.7 ug/mL High 5.0-15.0 [facility] 12 Lead EKGon 11-26-2024 12 Lead EKG Normal [facility] Absolute lymphocyte countOrd ered By: Betina Martinez on 11-26-2024 Lymphocytes Auto (Unsp spec) [#/Vol] 1.67 10*3/uL 0.83-4.51 [facility] Anion gap in Serum or Plasma Ordered By: Betina Martinez on 11-26-2024 Anion gap [Moles/Vol] 15 mmol/L 5-15 [facility] Automated lymphocyte count a s percentage of total leukocytesOrdered By: Betina Martinez on 11-26-2024 Lymphocytes/100 WBC Auto (Unsp spec) 8.9 % Low 19-41 [facility] BUN/creatinine ratioOrdered By: Betina Martinez on 11-26-2024 Urea nitrogen/Creatinine [Mass ratio] 20.6 mg/mg High 10-20 [facility] Basophil percentageOrdered B y: Betina Martinez on 11-26-2024 Basophils/100 WBC (Bld) 0.3 % 0-1 [facility] Bedside Glucoseon 11-26-2024 FINGERSTICK GLU 384 mg/dL High 74-106 [facility] Comment on above: Result Comment: NAI [place] OF PATIENT CARE PER NURSING PROTOCOL Performed By: #### L 501.080 ####[facility] [address] [place], [place], [address] Bilirubin Test strip Ql (U)O rdered By: Betina Martinez on 11-26-2024 Bilirubin Ql (U) Negative Negative [facility] Bilirubin, totalOrdered By: Betina Martinez on 11-26-2024 Bilirubin [Mass/Vol] 0.71 mg/dL 0.00-1.30 [facility] Blood cultureOrdered By: Indiana Martinez on 11-26-2024 Bacteria identified Cx Nom (Bld) No growth in 5 days. [facility] Bacteria identified Cx Nom (Bld) No growth in 5 days. [facility] Brain/Head without Contrasto n 11-26-2024 Brain/Head without Contrast Normal [facility] CBC W/Diff, Automatedon - OVALOCYTE 1+ Normal [facility] Comment on above: Performed By: #### L 500.4050, L100.0100, M200.1000, L503.6005, L501.4021 ####[facility] [address] [place], [place], [id number] PLT EST ADEQUATE Normal ADEQ [facility] Comment on above: Performed By: #### L 500.4050, L100.0100, M200.1000, L503.6005, L501.4021 ####[facility] [address] [place], [address] CO2 (BldV) [Moles/Vol]Ordere d By: Betina Martinez on 11-26-2024 CO2 [Moles/Vol] 26 mmol/L 23-33 [facility] Carbon dioxide, total [Moles /volume] in Central venous bloodOrdered By: Betina Penger on 11-26-2024 CO2 [Moles/Vol] 23.3 mmol/L 21.0-32.0 [facility] Chest PA and Lateralon 11-26 Chest PA and Lateral Normal [facility] Chloride assayOrdered By: Fernando tiffanie Juan on 11-26-2024 Chloride [Moles/Vol] 96 mmol/L Low 98-108 [facility] Comprehensive Metabolic Prof ilon 11-26-2024 Albumin [Mass/Vol] 3.7 g/dL Normal 3.4-4.8 [facility] Comment on above: Performed By: #### L 500.4050, L100.0100, M200.1000, L503.6005, L501.4021 ####[facility] [address] [place], [address] Albumin/Globulin [Mass ratio] 1.1 {ratio} Normal 0.9-2.4 [facility] Comment on above: Performed By: #### L 500.4050, L100.0100, M200.1000, L503.6005, L501.4021 ####[facility] [address] [place], [address] ALK PHOS 58 U/L Normal 40-129 [facility] Comment on above: Performed By: #### L 500.4050, L100.0100, M200.1000, L503.6005, L501.4021 ####[facility] [address] [place], [address] ALT [Catalytic activity/Vol] 18 U/L Normal <=46 [facility] Comment on above: Performed By: #### L 500.4050, L100.0100, M200.1000, L503.6005, L501.4021 ####[facility] [address] [place], [address] AST [Catalytic activity/Vol] 13 U/L Normal <=37 [facility] Comment on above: Performed By: #### L 500.4050, L100.0100, M200.1000, L503.6005, L501.4021 ####[facility] [address] [place], [address] Bilirubin [Mass/Vol] 0.71 mg/dL Normal 0.00-1.30 [facility] Comment on above: Performed By: #### L 500.4050, L100.0100, M200.1000, L503.6005, L501.4021 ####[facility] [address] [place], [address] BUN/CRE 20.6 RATIO High 10-20 [facility] Comment on above: Performed By: #### L 500.4050, L100.0100, M200.1000, L503.6005, L501.4021 ####[facility] [address] [place], [address] Calcium [Mass/Vol] 9.1 mg/dL Normal 7.6-11.0 [facility] Comment on above: Performed By: #### L 500.4050, L100.0100, M200.1000, L503.6005, L501.4021 ####[facility] [address] [place], [address] Chloride [Moles/Vol] 96 mmol/L Low 98-108 [facility] Comment on above: Performed By: #### L 500.4050, L100.0100, M200.1000, L503.6005, L501.4021 ####[facility] [address] [place], [address] CO2 [Moles/Vol] 23.3 mmol/L Normal 21.0-32.0 [facility] Comment on above: Performed By: #### L 500.4050, L100.0100, M200.1000, L503.6005, L501.4021 ####[facility] [address] [place], [address] Creatinine [Mass/Vol] 2.06 mg/dL High 0.70-1.20 [facility] Comment on above: Performed By: #### L 500.4050, L100.0100, M200.1000, L503.6005, L501.4021 ####[facility] [address] [place], [address] ECRCL 53.51 ml/min Normal 50-250 [facility] Comment on above: Performed By: #### L 500.4050, L100.0100, M200.1000, L503.6005, L501.4021 ####[facility] [address] [place], [address] GAP 15 Normal 5-15 [facility] Comment on above: Performed By: #### L 500.4050, L100.0100, M200.1000, L503.6005, L501.4021 ####[facility] [address] [place], [address] GFR/1.73 sq M.predicted among non-blacks MDRD (S/P/Bld) [Vol rate/Area] 36 mL/min/{1.73_m2} Low >60 [facility] Comment on above: Result Comment: mL/m in/1.73m2 CKD-EPI Creatinine Equation (2020) Performed By: #### L 500.4050, L100.0100, M200.1000, L503.6005, L501.4021 ####[facility] [address] [place], [address] Globulin (S) [Mass/Vol] 3.5 g/dL Normal 2.2-4.2 [facility] Comment on above: Performed By: #### L 500.4050, L100.0100, M200.1000, L503.6005, L501.4021 ####[facility] [address] [place], [address] Glucose [Mass/Vol] 336 mg/dL High 70-99 [facility] Comment on above: Performed By: #### L 500.4050, L100.0100, M200.1000, L503.6005, L501.4021 ####[facility] [address] [place], [address] Potassium [Moles/Vol] 3.8 mmol/L Normal 3.3-5.1 [facility] Comment on above: Performed By: #### L 500.4050, L100.0100, M200.1000, L503.6005, L501.4021 ####[facility] [address] [place], [address] Sodium [Moles/Vol] 135 mmol/L Normal 133-145 [facility] Comment on above: Performed By: #### L 500.4050, L100.0100, M200.1000, L503.6005, L501.4021 ####[facility] [address] [place], [address] T PROT 7.2 g/dL Normal 5.9-8.4 [facility] Comment on above: Performed By: #### L 500.4050, L100.0100, M200.1000, L503.6005, L501.4021 ####[facility] [address] [place], [address] Urea nitrogen [Mass/Vol] 42 mg/dL High 4-19 [facility] Comment on above: Performed By: #### L 500.4050, L100.0100, M200.1000, L503.6005, L501.4021 ####[facility] [address] [place], [address] Emergency Department Summary on 11-26-2024 Emergency Department Summary Normal [facility] Eosinophil percentageOrdered By: Betina Juan on 11-26-2024 Eosinophils/100 WBC (Bld) 0.4 % 0-5 [facility] Erythrocyte distribution wid th ratioOrdered By: Betina Martinez on 11-26-2024 Erythrocyte distribution width (RBC) [Ratio] 18.7 % High 11.6-14.6 [facility] Erythrocyte distribution wid th standard deviationOrdered By: Betina Martinez on 11-26-2024 Erythrocyte distribution width (RBC) [Ratio] 51.3 fl High 35.1-43.9 [facility] Glomerular filtration rate ( GFR) estimation/1.73 sq m using serum, plasma, or whole bOrdered By: Betina Martinez on 11-26-2024 GFR/1.73 sq M.predicted among non-blacks MDRD (S/P/Bld) [Vol rate/Area] 36 mL/min/{1.73_m2} Low >60 [facility] H AND P Exam - Hospitaliston 11-26-2024 H&P Exam - Hospitalist Normal [facility] Hematocrit Auto (Bld) [Volum e fraction]Ordered By: Betina Martinez on 11-26-2024 Hematocrit (Bld) [Volume fraction] 32.0 % Low 40-54 [facility] Hemoglobin measurementOrdere d By: Betina Martinez on 11-26-2024 Hemoglobin (Bld) [Mass/Vol] 10.0 g/dL Low 13.0-16.5 [facility] Immature granulocytes/100 WB C Auto (Bld)Ordered By: Betina Martinez on 11-26-2024 Immature granulocytes/100 WBC (Bld) 1.100 % High 0.0-0.9 [facility] Influenza virus A and B and SARS-CoV-2 (COVID-19) and Respiratory syncytial virus RNAOrdered By: Betina Martinez on 11-26-2024 SARS-CoV-2 (COVID-19) RNA FLORES+probe Ql (Unsp spec) [facility] Ketones Test strip Ql (U)Ord ered By: Betina Martinez on 11-26-2024 Ketones Ql (U) Negative Negative [facility] L501.4021on 11-26-2024 Trop T High Sen 59 ng/L Invalid Interpretation Code <=22 [facility] Comment on above: Result Comment: Crit ical Result(s) Called at 1057: by: LUIZ RODRIGUEZ. ??Results read back by same. Performed By: #### L 500.4050, L100.0100, M200.1000, L503.6005, L501.4021 ####[facility] [address] [place], [address] Lactic Acidon 11-26-2024 Lactate [Moles/Vol] mmol/L Normal 0.0-2.0 [facility] Comment on above: Order Comment: Comme nts: if result >2, system reflex orders 2nd test @ 4hrsY Performed By: #### L 503.6005 ####[facility] [address] [place], [address] Lactate [Moles/Vol] 1.8 mmol/L Normal 0.0-2.0 [facility] Comment on above: Order Comment: Y Performed By: #### L 500.4050, L100.0100, M200.1000, L503.6005, L501.4021 ####[facility] [address] [place], [address] M100.678on 11-26-2024 M100.678 Normal Reference Ran ge = Negative GeneXpert Instrument, PCR method SARS-CoV-2 (COVID 19) Negative INFLUENZA A Negative INFLUENZA B Negative RSV PCR Negative Normal [facility] Comment on above: Performed By: #### M 100.678 ####[facility] [address] [place], [address] MCV (mean corpuscular volume ) determinationOrdered By: Betina Martinez on 11-26-2024 MCV (RBC) [Entitic vol] 77.3 fL Low 80-94 [facility] Mean corpuscular hemoglobin (MCH) determinationOrdered By: Betina Martinez on 11-26-2024 MCH (RBC) [Entitic mass] 24.2 pg Low 27.0-32.0 [facility] Monocyte percentageOrdered B y: Betina Martinez on 11-26-2024 Monocytes/100 WBC (Bld) 12.8 % High 0-10 [facility] Mucus LM Ql (Urine sed)Order ed By: Betina Martinez on 11-26-2024 Mucus Ql (Urine sed) 0 SEEN /hpf [facility] Neutrophil percentageOrdered By: Betina Martinez on 11-26-2024 Neutrophils/100 WBC (Bld) 76.5 % High 47-70 [facility] Nitrite Test strip Ql (U)Ord ered By: Betina Martinez on 11-26-2024 Nitrite Ql (U) Negative Negative [facility] No Panel InformationOrdered By: Betina Martinez on 11-26-2024 JOSHUA [facility] Not entered [facility] 13 U/L <38 [facility] Ovalocyte detectionOrdered B y: Betina Martinez on 11-26-2024 Ovalocytes LM Ql (Bld) 1+ [facility] Pelvis 1 or 2 Viewson 2024 Pelvis 1 or 2 Views Normal [facility] Platelet countOrdered By: Fernando Martinez on 11-26-2024 Platelets (Bld) [#/Vol] 246 10*3/uL 150-450 [facility] Platelet estimateOrdered By: Betina Martinez on 11-26-2024 Platelets LM Ql (Bld) ADEQUATE ADEQ [facility] Potassium measurement (mass/ volume)Ordered By: Betina Martinez on 11-26-2024 Potassium (Unsp spec) [Mass/Vol] 3.8 mmol/L 3.3-5.1 [facility] Protein Test strip Ql (U)Ord ered By: Betina Martinez on 11-26-2024 Protein Ql (U) 15 mg/dl High Negative [facility] RBC Auto (Bld) [#/Vol]Ordere d By: Betina Martinez on 11-26-2024 RBC (Bld) [#/Vol] 4.14 10*6/uL Low 4.6-6.2 [facility] Serum creatinine measurement (mass/volume)Ordered By: Betina Martinez on 11-26-2024 Creatinine [Mass/Vol] 2.06 mg/dL High 0.70-1.20 [facility] Serum globulin measurementOr dered By: Betina Martinez on 11-26-2024 Globulin (S) [Mass/Vol] 3.5 g/dL 2.2-4.2 [facility] Serum glucose measurement (m ass/volume)Ordered By: Betina Martinez on 11-26-2024 Glucose [Mass/Vol] 336 mg/dL High 70-99 [facility] Serum or plasma alanine briscoe otransferase (ALT) measurementOrdered By: Betina Martinez on 11-26-2024 ALT [Catalytic activity/Vol] 18 U/L <47 [facility] Serum or plasma albumin grazyna urement (mass/volume)Ordered By: Betina Martinez on 11-26-2024 Albumin [Mass/Vol] 3.7 g/dL 3.4-4.8 [facility] Serum or plasma albumin/glob ulin mass ratioOrdered By: Betina Martinez on 11-26-2024 Albumin/Globulin [Mass ratio] 1.1 {ratio} 0.9-2.4 [facility] Serum or plasma alkaline benjamin sphatase measurementOrdered By: Betina Martinez on 11-26-2024 ALP [Catalytic activity/Vol] 58 U/L 40-129 [facility] Serum or plasma calcium grazyna urement (mass/volume)Ordered By: Betina Martinez on 11-26-2024 Calcium [Mass/Vol] 9.1 mg/dL 7.6-11.0 [facility] Serum or plasma urea nitroge n measurement (mass/volume)Ordered By: Betina Martinez on 11-26-2024 Urea nitrogen [Mass/Vol] 42 mg/dL High 4-19 [facility] Sodium levelOrdered By: Ochoa Martinez on 11-26-2024 Sodium [Moles/Vol] 135 mmol/L 133-145 [facility] Spine Cervical without Contr ason 11-26-2024 Spine Cervical without Contras Normal [facility] Squamous epithelial cells de tection in urine sediment by light microscopyOrdered By: Betina Martinez on 11-26-2024 Epithelial cells.squamous LM Ql (Urine sed) 0-5 SEEN /hpf 0-5 [facility] Total proteinOrdered By: Indiana Martinez on 11-26-2024 Protein [Mass/Vol] 7.2 g/dL 5.9-8.4 [facility] Troponin T HS 2 HRon 025 Trop T High Sen 52 ng/L High <=22 [facility] Comment on above: Performed By: #### L 499.0042 ####[facility] [address] [place], [address] Troponin T HS 4 HRon 025 Trop T High Sen 51 ng/L High <=22 [facility] Comment on above: Performed By: #### L 499.0043 ####[facility] [address] [place], [address] Troponin T.cardiac [Mass/vol ume] in Serum or Plasma by High sensitivity methodOrdered By: Betina Martinez on 11-26-2024 Troponin T.cardiac High sensitivity method [Mass/Vol] 51 ng/L High <22 [facility] Troponin T.cardiac High sensitivity method [Mass/Vol] 52 ng/L High <22 [facility] Troponin T.cardiac High sensitivity method [Mass/Vol] 59 ng/L Critically high <22 [facility] Urinalysis, Completeon 11-26 EPI,SQUAMOUS 0-5 SEEN Normal 0-5 [facility] Comment on above: Order Comment: FAM TER SPECIMEN Performed By: #### M 100.2200, L400.0001 ####[facility] [address] [place], [address] BACTERIA 0 SEEN Normal None Seen [facility] Comment on above: Order Comment: FAM TER SPECIMEN Performed By: #### M 100.2200, L400.0001 ####[facility] [address] [place], [address] Mucus Ql (Urine sed) 0 SEEN Normal [facility] Comment on above: Order Comment: FAM TER SPECIMEN Performed By: #### M 100.2200, L400.0001 ####[facility] [address] [place], [address] RBC 0 SEEN Normal 0-5 [facility] Comment on above: Order Comment: FAM TER SPECIMEN Performed By: #### M 100.2200, L400.0001 ####[facility] [address] [place], [address] WBC 0 SEEN Normal 0-5 [facility] Comment on above: Order Comment: FAM TER SPECIMEN Performed By: #### M 100.2200, L400.0001 ####[facility] [address] [place], [address] Urine clarityOrdered By: Indiana Martinez on 11-26-2024 Clarity (U) Clear Clear [facility] Urine color determinationOrd ered By: Betina Martinez on 11-26-2024 Color (U) Yellow Yellow [facility] Urine cultureOrdered By: Indiana Martinez on 11-26-2024 Bacteria identified Cx Nom (U) Streptococcus agalactiae (B) Abnormal [facility] Bacteria identified Cx Nom (U) Positive Abnormal [facility] Urine glucose detectionOrder ed By: Betina Martinez on 11-26-2024 Glucose Ql (U) 1000 mg/dl High Normal [facility] Urine leukocyte esterase det ection by dipstickOrdered By: Betina Martinez on 11-26-2024 Leukocyte esterase Test strip Ql (U) Negative Negative [facility] Urine pHOrdered By: Betina otero on 11-26-2024 pH (U) 6.0 [pH] 5.0 - 8.0 [facility] Urine sediment bacteria coun t by microscopy (number/high power field)Ordered By: Betina Martinez on 11-26-2024 Bacteria LM.HPF (Urine sed) [#/Area] 0 /[HPF] None Seen [facility] Urine specific gravity measu rementOrdered By: Betina Martinez on 11-26-2024 Specific gravity (U) [Rel density] 1.015 1.002-1.030 [facility] Urine urobilinogen measureme ntOrdered By: Betina Martinez on 11-26-2024 Urobilinogen Ql (U) Normal mg/dl Normal [facility] Venous Blood Gason 5 Blood Gas Type JOSHUA Normal [facility] Comment on above: Performed By: #### L 9000.0810 ####[facility] [address] [place], [address] CO2 [Moles/Vol] 26 mmol/L Normal 23-33 [facility] Comment on above: Performed By: #### L 9000.0810 ####[facility] [address] [place], [address] HCO3 (Bld) [Moles/Vol] 25 mmol/L Normal 22-26 [facility] Comment on above: Performed By: #### L 900.0810 ####[facility] [address] [place], [address] O2 Delivery Dev Not entered Normal [facility] Comment on above: Performed By: #### L 9000.0810 ####[facility] [address] [place], [address] SITE Not entered Normal [facility] Comment on above: Performed By: #### L 9000.0810 ####[facility] [address] [place], [address] VBG BE 1 mmol/L Normal -1.0-3.5 [facility] Comment on above: Performed By: #### L 9000.0810 ####[facility] [address] [place], [address] VBG pCO2 37.0 mmHg Low 41-51 [facility] Comment on above: Performed By: #### L 9000.0810 ####[facility] [address] [place], [address] VBG pH 7.44 High 7.32-7.42 [facility] Comment on above: Performed By: #### L 9000.0810 ####[facility] [address] [place], [address] VBG PO2 40 mmHg Normal 25-40 [facility] Comment on above: Performed By: #### L 9000.0810 ####[facility] [address] [place], [address] VBG SO2 77 High 50-70 [facility] Comment on above: Performed By: #### L 9000.0810 ####[facility] [address] [place], [address] Venous blood base excess elizabeth surementOrdered By: Betina Martinez on 11-26-2024 Base excess Calc (BldV) [Moles/Vol] 1 mmol/L -1.0-3.5 [facility] Venous blood bicarbonate elizabeth surementOrdered By: Betina Martinez on 11-26-2024 HCO3 (Bld) [Moles/Vol] 25 mmol/L 22-26 [facility] Venous blood pH measurementO rdered By: Betina Martinez on 11-26-2024 pH (BldV) 7.44 [pH] High 7.32-7.42 [facility] Venous blood partial pressur e of carbon dioxide measurementOrdered By: Betina Martinez on 11-26-2024 CO2 (BldV) [Partial pressure] 37.0 mm[Hg] Low 41-51 [facility] Venous blood partial pressur e of oxygen measurementOrdered By: Betina Martinez on 11-26-2024 Oxygen (BldV) [Partial pressure] 40 mm[Hg] 25-40 [facility] White blood cell (WBC) count Ordered By: Betina Martinez on 11-26-2024 WBC (Bld) [#/Vol] 18.7 10*3/uL High 4.4-11.0 [facility] White blood cell countOrdere d By: Betina Martinez on 11-26-2024 White blood cell count 0 SEEN /hpf 0-5 [facility] Pulmonary Visit Reporton Pulmonary Visit Report Normal [facility] HEPATIC FUNCTION PANELon Albumin [Mass/Vol] 4.1 g/dL Normal 3.6-5.1 [facility] Comment on above: Performed By: #### 1 0256 #### [facility] [place] [address] Statistical Engineer: Octavio Segovia MD Albumin/Globulin [Mass ratio] 1.3 {ratio} Normal 1.0-2.5 [facility] Comment on above: Performed By: #### 1 0256 #### [facility] [place] [address] Statistical Engineer: Octavio Segovia MD ALP [Catalytic activity/Vol] 51 U/L Normal 35-144 [facility] Comment on above: Performed By: #### 1 0256 #### [facility] [place] [address] Statistical Engineer: Octavio Segovia MD ALT [Catalytic activity/Vol] 21 U/L Normal 9-46 [facility] Comment on above: Performed By: #### 1 0256 #### [facility] [place] [address] Statistical Engineer: Octavio Segovia MD AST [Catalytic activity/Vol] 19 U/L Normal 10-35 [facility] Comment on above: Performed By: #### 1 0256 #### [facility] [place] [address] Statistical Engineer: Octavio Segovia MD Bilirubin [Mass/Vol] 0.6 mg/dL Normal 0.2-1.2 [facility] Comment on above: Performed By: #### 1 0256 #### [facility] [place] [address] Statistical Engineer: Octavio Segovia MD BILIRUBIN, INDIRECT 0.5 mg/dL (calc) Normal 0.2-1.2 [facility] Comment on above: Performed By: #### 1 0256 #### [facility] [place] [address] Statistical Engineer: Octavio Segovia MD Bilirubin.indirect [Mass/Vol] 0.1 mg/dL Normal < OR = 0.2 [facility] Comment on above: Performed By: #### 1 0256 #### [facility] of [address], [address] [place] [address] Statistical Engineer: Octavio Segovia MD Globulin (S) [Mass/Vol] 3.2 g/dL Normal 1.9-3.7 [facility] Comment on above: Performed By: #### 1 0256 #### [facility] [address], [address] [place] [address] Statistical Engineer: Octavio Segovia MD Protein [Mass/Vol] 7.3 g/dL Normal 6.1-8.1 [facility] Comment on above: Performed By: #### 1 0256 #### [facility] [address], [address] [place] [address] Statistical Engineer: Octavio Segovia MD Hepatic function 2000 panelo n 11-24-2024 Albumin [Mass/Vol] 4.1 g/dL 3.6 - 5.1 g/dL [facility] Albumin/Globulin [Mass ratio] 1.3 {ratio} [facility] ALP [Catalytic activity/Vol] 51 U/L 35 - 144 U/L [facility] ALT [Catalytic activity/Vol] 21 U/L 9 - 46 U/L [facility] AST [Catalytic activity/Vol] 19 U/L 10 - 35 U/L [facility] Bilirubin [Mass/Vol] 0.6 mg/dL 0.2 - 1 .2 mg/dL [facility] Bilirubin.direct [Mass/Vol] 0.1 mg/dL < OR = 0.2 [facility] Bilirubin.indirect [Mass/Vol] 0.5 mg/dL [facility] Globulin (S) [Mass/Vol] 3.2 g/dL U [facility] [place] Protein [Mass/Vol] 7.3 g/dL 6.1 - 8.1 g/dL [facility] OT D/C Summaryon 11-19-2024 OT D/C Summary Normal [facility] OT D/C of Non Returning Pton 11-19-2024 OT D/C of Non Returning Pt Normal [facility] Office Visit Reporton 2024 Office Visit Report Normal [facility] AFB Culture/SmearOrdered By: Georgia Mejia on 11-11-2024 Mycobacterium sp identified Org specific cx Nom (Unsp spec) No Mycobacteria isolated. [facility] Mycobacterium sp identified Org specific cx Nom (Unsp spec)Ordered By: Georgia Mejia on 11-11-2024 Microscopic observation Acid fast stain Nom (Unsp spec) No acid fast bacilli seen [facility] Absolute lymphocyte countOrd ered By: Rito Lundberg on 11-03-2024 Lymphocytes Auto (Unsp spec) [#/Vol] 1.23 10*3/uL 0.83-4.51 [facility] Automated lymphocyte count a s percentage of total leukocytesOrdered By: Rito Lundberg on 11-03-2024 Lymphocytes/100 WBC Auto (Unsp spec) 6.4 % Low 19-41 [facility] Basophil percentageOrdered B y: Rito Lundberg on 11-03-2024 Basophils/100 WBC (Bld) 0.6 % 0-1 [facility] CBC W/Diff, Automatedon Absolute Lymph 1.23 X10 3/uL Normal 0.83-4.51 [facility] Comment on above: Performed By: #### L 503.6550, L503.6030, L100.9950, L100.0100 ####[facility] [address] [place], [address] Absolute Neut 15.7 X10 3/uL High 2.0-7.7 [facility] Comment on above: Performed By: #### L 503.6550, L503.6030, L100.9950, L100.0100 ####[facility] [address] [place], [address] Basophils/100 WBC (Bld) 0.6 % Normal 0-1 [facility] Comment on above: Performed By: #### L 503.6550, L503.6030, L100.9950, L100.0100 ####[facility] [address] [place], [address] Eosinophils/100 WBC (Bld) 1.3 % Normal 0-5 [facility] Comment on above: Performed By: #### L 503.6550, L503.6030, L100.9950, L100.0100 ####[facility] [address] [place], [address] Erythrocyte distribution width (RBC) [Ratio] 18.5 % High 11.6-14.6 [facility] Comment on above: Performed By: #### L 503.6550, L503.6030, L100.9950, L100.0100 ####[facility] [address] [place], [address] Hematocrit (Bld) [Volume fraction] 34.6 % Low 40-54 [facility] Comment on above: Performed By: #### L 503.6550, L503.6030, L100.9950, L100.0100 ####[facility] [address] [place], [address] Hemoglobin (Bld) [Mass/Vol] 10.0 g/dL Low 13.0-16.5 [facility] Comment on above: Performed By: #### L 503.6550, L503.6030, L100.9950, L100.0100 ####[facility] [address] [place], [address] IG% 1.500 High 0.0-0.9 [facility] Comment on above: Result Comment: IG% - Immature Granulocytes (promyelocytes, myelocytes andmetamyelocytes) > 1% indicates that a LEFT SHIFT is Present. Performed By: #### L 503.6550, L503.6030, L100.9950, L100.0100 ####[facility] [address] [place], [address] Lymphocytes/100 WBC (Bld) 6.4 % Low 19-41 [facility] Comment on above: Performed By: #### L 503.6550, L503.6030, L100.9950, L100.0100 ####[facility] [address] [place], [address] MCH (RBC) [Entitic mass] 23.7 pg Low 27.0-32.0 [facility] Comment on above: Performed By: #### L 503.6550, L503.6030, L100.9950, L100.0100 ####[facility] [address] [place], [address] MCHC (RBC) [Mass/Vol] 28.9 g/dL Low 32-36 [facility] Comment on above: Performed By: #### L 503.6550, L503.6030, L100.9950, L100.0100 ####[facility] [address] [place], [address] MCV (RBC) [Entitic vol] 82.0 fL Normal 80-94 [facility] Comment on above: Performed By: #### L 503.6550, L503.6030, L100.9950, L100.0100 ####[facility] [address] [place], [address] Monocytes/100 WBC (Bld) 8.6 % Normal 0-10 [facility] Comment on above: Performed By: #### L 503.6550, L503.6030, L100.9950, L100.0100 ####[facility] [address] [place], [address] Neutrophils/100 WBC (Bld) 81.6 % High 47-70 [facility] Comment on above: Performed By: #### L 503.6550, L503.6030, L100.9950, L100.0100 ####[facility] [address] [place], [address] Nucleated RBC (Bld) [#/Vol] 0 10*3/uL Normal 0-5 [facility] Comment on above: Performed By: #### L 503.6550, L503.6030, L100.9950, L100.0100 ####[facility] [address] [place], [address] Platelet mean volume (Bld) [Entitic vol] 9.4 fL Normal 6.2-12.0 [facility] Comment on above: Performed By: #### L 503.6550, L503.6030, L100.9950, L100.0100 ####[facility] [address] [place], [address] Platelets (Bld) [#/Vol] 288 10*3/uL Normal 150-450 [facility] Comment on above: Performed By: #### L 503.6550, L503.6030, L100.9950, L100.0100 ####[facility] [address] [place], [address] RBC (Bld) [#/Vol] 4.22 10*6/uL Low 4.6-6.2 [facility] Comment on above: Performed By: #### L 503.6550, L503.6030, L100.9950, L100.0100 ####[facility] [address] [place], [address] RDW SD 54.4 fl High 35.1-43.9 [facility] Comment on above: Performed By: #### L 503.6550, L503.6030, L100.9950, L100.0100 ####[facility] [address] [place], [address] WBC (Bld) [#/Vol] 19.2 10*3/uL High 4.4-11.0 [facility] Comment on above: Performed By: #### L 503.6550, L503.6030, L100.9950, L100.0100 ####[facility] [address] [place], [place], [id number] Eosinophil percentageOrdered By: Rito Lundberg on 11-03-2024 Eosinophils/100 WBC (Bld) 1.3 % 0-5 [facility] Erythrocyte distribution wid th ratioOrdered By: [facility] on 11-03-2024 Erythrocyte distribution width (RBC) [Ratio] 18.5 % High 11.6-14.6 [facility] Erythrocyte distribution wid th standard deviationOrdered By: [facility] on 11-03-2024 Erythrocyte distribution width (RBC) [Ratio] 54.4 fl High 35.1-43.9 [facility] Ferritinon 11-03-2024 Ferritin [Mass/Vol] 124 ng/mL Normal 37-417 [facility] Comment on above: Performed By: #### L 503.6550, L503.6030, L100.9950, L100.0100 ####[facility] [address] [place], [place], [id number] Hematocrit Auto (Bld) [Volum e fraction]Ordered By: Rito Lundberg on 11-03-2024 Hematocrit (Bld) [Volume fraction] 34.6 % Low 40-54 [facility] Hemoglobin measurementOrdere d By: Rito Lundberg on 11-03-2024 Hemoglobin (Bld) [Mass/Vol] 10.0 g/dL Low 13.0-16.5 [facility] Immature granulocytes/100 WB C Auto (Bld)Ordered By: Rito Lundberg on 11-03-2024 Immature granulocytes/100 WBC (Bld) 1.500 % High 0.0-0.9 [facility] Iron measurement (mass/mass) Ordered By: [facility] on 11-03-2024 Iron (Unsp spec) [Mass/Mass] 52 ug/dL Low 65-175 [facility] Iron+Iron Binding Capacityon 11-03-2024 Iron [Mass/Vol] 52 ug/dL Low 65-175 [facility] Comment on above: Performed By: #### L 503.6550, L503.6030, L100.9950, L100.0100 ####[facility] [address] [place], [address] IRON SATURATION 13.0 Normal 9-55 [facility] Comment on above: Performed By: #### L 503.6550, L503.6030, L100.9950, L100.0100 ####[facility] [address] [place], [address] TIBC 392 ug/dL Normal 250-450 [facility] Comment on above: Performed By: #### L 503.6550, L503.6030, L100.9950, L100.0100 ####[facility] [address] [place], [address] UIBC 340 ug/dL Normal 228-428 [facility] Comment on above: Performed By: #### L 503.6550, L503.6030, L100.9950, L100.0100 ####[facility] [address] [place], [address] MCV (mean corpuscular volume ) determinationOrdered By: Rito Lundberg on 11-03-2024 MCV (RBC) [Entitic vol] 82.0 fL 80-94 [facility] Mean corpuscular hemoglobin (MCH) determinationOrdered By: Rito Lundberg on 11-03-2024 MCH (RBC) [Entitic mass] 23.7 pg Low 27.0-32.0 [facility] Monocyte percentageOrdered B y: Rito Lundberg on 11-03-2024 Monocytes/100 WBC (Bld) 8.6 % 0-10 [facility] Neutrophil percentageOrdered By: Rito Lundberg on 11-03-2024 Neutrophils/100 WBC (Bld) 81.6 % High 47-70 [facility] No Panel InformationOrdered By: Rito Lundberg on 11-03-2024 340 ug/dL 228-428 [facility] Oncology Visit Reporton Oncology Visit Report Normal [facility] Platelet countOrdered By: Chanell Lundberg on 11-03-2024 Platelets (Bld) [#/Vol] 288 10*3/uL 150-450 [facility] RBC Auto (Bld) [#/Vol]Ordere d By: Rito Lundberg on 11-03-2024 RBC (Bld) [#/Vol] 4.22 10*6/uL Low 4.6-6.2 [facility] Retic Panelon 11-03-2024 IM RET FRACTION 28.30 High 3.00-15.90 [facility] Comment on above: Performed By: #### L 503.6550, L503.6030, L100.9950, L100.0100 ####[facility] [address] [place], [address] RET-HE 26.1 pg Low 30-35 [facility] Comment on above: Performed By: #### L 503.6550, L503.6030, L100.9950, L100.0100 ####[facility] [address] [place], [address] Retic Count 2.34 High 0.5-1.5 [facility] Comment on above: Performed By: #### L 503.6550, L503.6030, L100.9950, L100.0100 ####[facility] [address] [place], [address] Reticulocyte hemoglobin equi valent (RET-He) measurementOrdered By: Rito Lundberg on 11-03-2024 Hemoglobin (Reticulocytes) [Entitic mass] 26.1 pg Low 30-35 [facility] Reticulocytes Auto (Bld) [#/ Vol]Ordered By: Rito Lundberg on 11-03-2024 Reticulocytes/100 RBC (Bld) 2.34 % High 0.5-1.5 [facility] Serum or plasma ferritin elizabeth surement (mass/volume)Ordered By: Rito Lundberg on 11-03-2024 Ferritin [Mass/Vol] 124 ng/mL 37-417 [facility] Serum or plasma iron saturat ion measurement (mass fraction)Ordered By: Rito Lundberg on 11-03-2024 Iron saturation [Mass fraction] 13.0 % 9-55 [facility] White blood cell (WBC) count Ordered By: Rito Lundberg on 11-03-2024 WBC (Bld) [#/Vol] 19.2 10*3/uL High 4.4-11.0 [facility] 36on 10-27-2024 36 Called pharmacy, the y need additional refills sent in. Will pend and send a request to the provider. Normal [facility] Cardiology Visit Reporton Cardiology Visit Report Normal [facility] SP/HP.SP.Katelyn 10-23-2024 SP/HP.SP.EV Normal [facility] OT General Evaluationon 09-29 OT General Evaluation Normal [facility] Absolute lymphocyte countOrd ered By: Toni Vann on 10-13-2024 Lymphocytes Auto (Unsp spec) [#/Vol] 0.70 10*3/uL Low 0.83-4.51 [facility] Anion gap in Serum or Plasma Ordered By: Toni Vann on 10-13-2024 Anion gap [Moles/Vol] 19 mmol/L High 08-13 [facility] Automated lymphocyte count a s percentage of total leukocytesOrdered By: Toni Vann on 10-13-2024 Lymphocytes/100 WBC Auto (Unsp spec) 5.2 % Low 19-41 [facility] BUN/creatinine ratioOrdered By: Toni Vann on 10-13-2024 Urea nitrogen/Creatinine [Mass ratio] 25.1 mg/mg High 10- [facility] Basic Metabolic Profile (BMP )on 10-13-2024 BUN/CRE 25.1 RATIO High 01-18 [facility] Comment on above: Order Comment: ALBERTO RICO GETS BMP NANCY GETS LIVER AND LIPID MARI ANDFILIZETT GET TSH ANS CBCD Performed By: #### L 500.4100, L500.3400, L100.0100, L506.0400, L501.9520, L500.2500 ####[facility] [address] [place], [address] Calcium [Mass/Vol] 9.2 mg/dL Normal 7.6-11.0 [facility] Comment on above: Order Comment: ALBERTO RICO GETS BMP BADDOUR GETS LIVER AND LIPID [facility] GET TSH ANS CBCD Performed By: #### L 500.4100, L500.3400, L100.0100, L506.0400, L501.9520, L500.2500 ####[facility] [address] [place], [address] Chloride [Moles/Vol] 95 mmol/L Low 98-108 [facility] Comment on above: Order Comment: ALBERTO RICO GETS BMP BADDOUR GETS LIVER AND LIPID [facility] GET TSH ANS CBCD Performed By: #### L 500.4100, L500.3400, L100.0100, L506.0400, L501.9520, L500.2500 ####[facility] [address] [place], [address] CO2 [Moles/Vol] 19.1 mmol/L Low 21.0-32.0 [facility] Comment on above: Order Comment: ALBERTO RICO GETS BMP BADDOUR GETS LIVER AND LIPID [facility] GET TSH ANS CBCD Performed By: #### L 500.4100, L500.3400, L100.0100, L506.0400, L501.9520, L500.2500 ####[facility] [address] [place], [address] Creatinine [Mass/Vol] 1.89 mg/dL High 0.70-1.20 [facility] Comment on above: Order Comment: ALBERTO RICO GETS BMP BADDOUR GETS LIVER AND LIPID MARI ANDFIKE GET TSH ANS CBCD Performed By: #### L 500.4100, L500.3400, L100.0100, L506.0400, L501.9520, L500.2500 ####[facility] [address] [place], [place], [id number] GAP 19 High 5-15 [facility] Comment on above: Order Comment: ALBERTO RICO GETS BMP BADDOUR GETS LIVER AND LIPID MARI ANDFIKE GET TSH ANS CBCD Performed By: #### L 500.4100, L500.3400, L100.0100, L506.0400, L501.9520, L500.2500 ####[facility] [address] [place], [place], [id number] GFR/1.73 sq M.predicted among non-blacks MDRD (S/P/Bld) [Vol rate/Area] 40 mL/min/{1.73_m2} Low >60 [facility] Comment on above: Order Comment: ALBERTO RICO GETS BMP BADDOUR GETS LIVER AND LIPID MARI ANDFIKE GET TSH ANS CBCD Result Comment: mL/m in/1.73m2 CKD-EPI Creatinine Equation (2020) Performed By: #### L 500.4100, L500.3400, L100.0100, L506.0400, L501.9520, L500.2500 ####[facility] [address] [place], [place], [id number] Glucose [Mass/Vol] 490 mg/dL Invalid Interpretation Code 70-99 [facility] Comment on above: Order Comment: ALBERTO RICO GETS BMP BADDOUR GETS LIVER AND LIPID MARI ANDFIKE GET TSH ANS CBCD Result Comment: Crit ical Result(s) Called at: 1912 by:??JESSICA MISHRA TO Results read back by same. Performed By: #### L 500.4100, L500.3400, L100.0100, L506.0400, L501.9520, L500.2500 ####[facility] [address], [address] Potassium [Moles/Vol] 4.0 mmol/L Normal 3.3-5.1 [facility] Comment on above: Order Comment: ALBERTO RICO GETS BMP BADDOUR GETS LIVER AND LIPID MARI ANDFIKE GET TSH ANS CBCD Performed By: #### L 500.4100, L500.3400, L100.0100, L506.0400, L501.9520, L500.2500 ####[facility] [address] [place], [address] Sodium [Moles/Vol] 133 mmol/L Normal 133-145 [facility] Comment on above: Order Comment: ALBERTO RICO GETS BMP BADDOUR GETS LIVER AND LIPID MARI ANDFIKE GET TSH ANS CBCD Performed By: #### L 500.4100, L500.3400, L100.0100, L506.0400, L501.9520, L500.2500 ####[facility] [address] [place], [address] Urea nitrogen [Mass/Vol] 48 mg/dL High 4- [facility] Comment on above: Order Comment: ALBERTO RICO GETS BMP BADDOUR GETS LIVER AND LIPID MARI ANDFIKE GET TSH ANS CBCD Performed By: #### L 500.4100, L500.3400, L100.0100, L506.0400, L501.9520, L500.2500 ####[facility] [address] [place], [address] BUN Normal 4-19 [facility] Comment on above: Result Comment: WRON G Performed By: #### L 500.2500 ####[facility] [address] [place], [address] BUN/CRE Normal 10-20 [facility] Comment on above: Result Comment: WRON G Performed By: #### L 500.2500 ####[facility] [address] [place], [address] Calcium Normal 7.6-11.0 [facility] Comment on above: Result Comment: WRON G Performed By: #### L 500.2500 ####[facility] [address] [place], [address] CL Normal 98-108 [facility] Comment on above: Result Comment: WRON G Performed By: #### L 500.2500 ####[facility] [address] [place], [address] CO2 Normal 21.0-32.0 [facility] Comment on above: Result Comment: WRON G Performed By: #### L 500.2500 ####[facility] [address] [place], [address] CREAT,SERUM Normal 0.70-1.20 [facility] Comment on above: Result Comment: WRON G Performed By: #### L 500.2500 ####[facility] [address] [place], [address] eGFR Normal >60 [facility] Comment on above: Result Comment: WRON G Performed By: #### L 500.2500 ####[facility] [address] [place], [address] GAP Normal 5-15 [facility] Comment on above: Result Comment: WRON G Performed By: #### L 500.2500 ####[facility] [address] [place], [address] GLU Normal 70-99 [facility] Comment on above: Result Comment: WRON G Performed By: #### L 500.2500 ####[facility] [address] [place], [address] Potassium Normal 3.3-5.1 [facility] Comment on above: Result Comment: WRON G Performed By: #### L 500.2500 ####[facility] [address] [place], [address] Basic Metabolic Profile (BMP) Normal 133-145 [facility] Comment on above: Result Comment: ASHLEIGH G Performed By: #### L 500.2500 ####[facility] [address] [place], [address] Basophil percentageOrdered B y: Toni Vann on 10-13-2024 Basophils/100 WBC (Bld) 0.2 % 0-1 [facility] Bilirubin directOrdered By: Toni Vann on 10-13-2024 Bilirubin.direct [Mass/Vol] 0.16 mg/dL 0.00-0.30 [facility] Bilirubin, totalOrdered By: Toni Vann on 10-13-2024 Bilirubin [Mass/Vol] 0.33 mg/dL 0.00-1.30 [facility] CBC W/Diff, Automatedon 09-29 Absolute Lymph 0.70 X10 3/uL Low 0.83-4.51 [facility] Comment on above: Performed By: #### L 500.4100, L500.3400, L100.0100, L506.0400, L501.9520, L500.2500 ####[facility] [address], [address] Absolute Neut 12.0 X10 3/uL High 2.0-7.7 [facility] Comment on above: Performed By: #### L 500.4100, L500.3400, L100.0100, L506.0400, L501.9520, L500.2500 ####[facility] [address] [place], [address] Basophils/100 WBC (Bld) 0.2 % Normal 0-1 [facility] Comment on above: Performed By: #### L 500.4100, L500.3400, L100.0100, L506.0400, L501.9520, L500.2500 ####[facility] [address] [place], [address] Eosinophils/100 WBC (Bld) 0.1 % Normal 0-5 [facility] Comment on above: Performed By: #### L 500.4100, L500.3400, L100.0100, L506.0400, L501.9520, L500.2500 ####[facility] [address] [place], [address] Erythrocyte distribution width (RBC) [Ratio] 17.4 % High 11.6-14.6 [facility] Comment on above: Performed By: #### L 500.4100, L500.3400, L100.0100, L506.0400, L501.9520, L500.2500 ####[facility] [address] [place], [address] Hematocrit (Bld) [Volume fraction] 33.4 % Low 40-54 [facility] Comment on above: Performed By: #### L 500.4100, L500.3400, L100.0100, L506.0400, L501.9520, L500.2500 ####[facility] [address] [place], [address] Hemoglobin (Bld) [Mass/Vol] 10.2 g/dL Low 13.0-16.5 [facility] Comment on above: Performed By: #### L 500.4100, L500.3400, L100.0100, L506.0400, L501.9520, L500.2500 ####[facility] [address] [place], [address] IG% 1.000 High 0.0-0.9 [facility] [facility] Comment on above: Result Comment: IG% - Immature Granulocytes (promyelocytes, myelocytes andmetamyelocytes) > 1% indicates that a LEFT SHIFT is Present. Performed By: #### L 500.4100, L500.3400, L100.0100, L506.0400, L501.9520, L500.2500 ####[facility] [address] [place], [address] Lymphocytes/100 WBC (Bld) 5.2 % Low 19-41 [facility] Comment on above: Performed By: #### L 500.4100, L500.3400, L100.0100, L506.0400, L501.9520, L500.2500 ####[facility] [address] [place], [address] MCH (RBC) [Entitic mass] 24.1 pg Low 27.0-32.0 [facility] Comment on above: Performed By: #### L 500.4100, L500.3400, L100.0100, L506.0400, L501.9520, L500.2500 ####[facility] [address] [place], [address] MCHC (RBC) [Mass/Vol] 30.5 g/dL Low 32-36 [facility] Comment on above: Performed By: #### L 500.4100, L500.3400, L100.0100, L506.0400, L501.9520, L500.2500 ####[facility] [address] [place], [address] MCV (RBC) [Entitic vol] 78.8 fL Low 80-94 [facility] Comment on above: Performed By: #### L 500.4100, L500.3400, L100.0100, L506.0400, L501.9520, L500.2500 ####[facility] [address] [place], [address] Monocytes/100 WBC (Bld) 4.2 % Normal 0-10 [facility] Comment on above: Performed By: #### L 500.4100, L500.3400, L100.0100, L506.0400, L501.9520, L500.2500 ####[facility] [address] [place], [address] Neutrophils/100 WBC (Bld) 89.3 % High 47-70 [facility] Comment on above: Performed By: #### L 500.4100, L500.3400, L100.0100, L506.0400, L501.9520, L500.2500 ####[facility] [address] [place], [address] Nucleated RBC (Bld) [#/Vol] 0 10*3/uL Normal 0-5 [facility] Comment on above: Performed By: #### L 500.4100, L500.3400, L100.0100, L506.0400, L501.9520, L500.2500 ####[facility] [address] [place], [address] Platelet mean volume (Bld) [Entitic vol] 9.8 fL Normal 6.2-12.0 [facility] Comment on above: Performed By: #### L 500.4100, L500.3400, L100.0100, L506.0400, L501.9520, L500.2500 ####[facility] [address] [place], [address] Platelets (Bld) [#/Vol] 296 10*3/uL Normal 150-450 [facility] Comment on above: Performed By: #### L 500.4100, L500.3400, L100.0100, L506.0400, L501.9520, L500.2500 ####[facility] [address] [place], [address] RBC (Bld) [#/Vol] 4.24 10*6/uL Low 4.6-6.2 [facility] Comment on above: Performed By: #### L 500.4100, L500.3400, L100.0100, L506.0400, L501.9520, L500.2500 ####[facility] [address] [place], [address] RDW SD 50.3 fl High 35.1-43.9 [facility] Comment on above: Performed By: #### L 500.4100, L500.3400, L100.0100, L506.0400, L501.9520, L500.2500 ####[facility] [address] [place], [address] WBC (Bld) [#/Vol] 13.4 10*3/uL High 4.4-11.0 [facility] Comment on above: Performed By: #### L 500.4100, L500.3400, L100.0100, L506.0400, L501.9520, L500.2500 ####[facility] [address] [place], [address] Calculated very low density lipoprotein (VLDL) cholesterol measurementOrdered By: Toni Vann on 10-13-2024 Calculated very low density lipoprotein (VLDL) cholesterol measurement 39 mg/dL 5-40 [facility] Carbon dioxide, total [Moles /volume] in Central venous bloodOrdered By: Toni Vann on 10-13-2024 CO2 [Moles/Vol] 19.1 mmol/L Low 21.0-32.0 [facility] Chloride assayOrdered By: Ra cassy Vann on 10-13-2024 Chloride [Moles/Vol] 95 mmol/L Low 98-108 [facility] Eosinophil percentageOrdered By: Toni Vann on 10-13-2024 Eosinophils/100 WBC (Bld) 0.1 % 0-5 [facility] Erythrocyte distribution wid th ratioOrdered By: Toni Vann on 10-13-2024 Erythrocyte distribution width (RBC) [Ratio] 17.4 % High 11.6-14.6 [facility] Erythrocyte distribution wid th standard deviationOrdered By: Toni Vann on 10-13-2024 Erythrocyte distribution width (RBC) [Ratio] 50.3 fl High 35.1-43.9 [facility] Glomerular filtration rate ( GFR) estimation/1.73 sq m using serum, plasma, or whole bOrdered By: Toni Vann on 10-13-2024 GFR/1.73 sq M.predicted among non-blacks MDRD (S/P/Bld) [Vol rate/Area] 40 mL/min/{1.73_m2} Low >60 [facility] Hematocrit Auto (Bld) [Volum e fraction]Ordered By: Toni Vann on 10-13-2024 Hematocrit (Bld) [Volume fraction] 33.4 % Low 40-54 [facility] Hemoglobin measurementOrdere d By: Tonigerry Vann on 10-13-2024 Hemoglobin (Bld) [Mass/Vol] 10.2 g/dL Low 13.0-16.5 [facility] Immature granulocytes/100 WB C Auto (Bld)Ordered By: Tonigerry Vann on 10-13-2024 Immature granulocytes/100 WBC (Bld) 1.000 % High 0.0-0.9 [facility] LDL calc ser/plasOrdered By: Toni Vann on 10-13-2024 Cholesterol in LDL [Mass/Vol] 75 mg/dL [facility] Lipid Profileon 10-13-2024 CHOL:HDL 3.31 Normal [facility] Comment on above: Order Comment: ALBERTO RICO GETS BMP BADDOUR GETS LIVER AND LIPID MARI ANDNORMA GET TSH ANS CBCD Performed By: #### L 500.4100, L500.3400, L100.0100, L506.0400, L501.9520, L500.2500 ####[facility] [address] [place], [place], [id number] Cholesterol [Mass/Vol] 163 mg/dL Normal <=200 [facility] Comment on above: Order Comment: ALBERTO RICO GETS BMP BADDOUR GETS LIVER AND LIPID MARI ANDFIKE GET TSH ANS CBCD Result Comment: Chol esterol level, Desirable <200 mg/dLBorderline high cholesterol 200-239 mg/dLHigh cholesterol >=240 mg/dLRecommendations of the NCEP Adult Treatment Panel for thefollowing risk-cutoff thresholds for the [place] Americanpopulation. Performed By: #### L 500.4100, L500.3400, L100.0100, L506.0400, L501.9520, L500.2500 ####[facility] [address] [place], [address] Cholesterol in HDL [Mass/Vol] 49 mg/dL Normal [facility] Comment on above: Order Comment: ALBERTO [...] and age. Performed By: #### L 500.4100, L500.3400, L100.0100, L506.0400, L501.9520, L500.2500 ####[facility] [address] [place], [address] Cholesterol in LDL [Mass/Vol] 75 mg/dL Normal [facility] Comment on above: Order Comment: ALBERTO RICO GETS BMP BADDOUR GETS LIVER AND LIPID MARI ANDFIKE GET TSH ANS CBCD Result Comment: Bord hzvomw=155-262 mg/dL Higher Czed=919 mg/dL or greater Performed By: #### L 500.4100, L500.3400, L100.0100, L506.0400, L501.9520, L500.2500 ####[facility] [address] [place], [address] Cholesterol in VLDL [Mass/Vol] 39 mg/dL Normal 5-40 [facility] Comment on above: Order Comment: ALBERTO RICO GETS BMP BADDOUR GETS LIVER AND LIPID MARI ANDFIKE GET TSH ANS CBCD Performed By: #### L 500.4100, L500.3400, L100.0100, L506.0400, L501.9520, L500.2500 ####[facility] [address] [place], [address] Triglyceride [Mass/Vol] 193 mg/dL Normal [facility] Comment on above: Order Comment: ALBERTO RICO GETS BMP BADDOUR GETS LIVER AND LIPID MARI ANDFIKE GET TSH ANS CBCD Result Comment: The drugs N-Acetylcysteine and Metamizole may falselydepress this assay.Normal range: <150 mg/dLBorderline High: 150-199 mg/dLHigh: 200-499 mg/dLVery High: >500 mg/dL Performed By: #### L 500.4100, L500.3400, L100.0100, L506.0400, L501.9520, L500.2500 ####[facility] [address] [place], [address] Liver Profileon 10-13-2024 Albumin [Mass/Vol] 3.9 g/dL Normal 3.4-4.8 [facility] Comment on above: Order Comment: ALBERTO RICO GETS BMP BADDOUR GETS LIVER AND LIPID MARI ANDFIKE GET TSH ANS CBCD Performed By: #### L 500.4100, L500.3400, L100.0100, L506.0400, L501.9520, L500.2500 ####[facility] [address] [place], [address] ALK PHOS 57 U/L Normal 40-129 [facility] Comment on above: Order Comment: ALBERTO RICO GETS BMP BADDOUR GETS LIVER AND LIPID MARI ANDFIKE GET TSH ANS CBCD Performed By: #### L 500.4100, L500.3400, L100.0100, L506.0400, L501.9520, L500.2500 ####[facility] [address] [place], [address] ALT [Catalytic activity/Vol] 17 U/L Normal <=46 [facility] Comment on above: Order Comment: ALBERTO RICO GETS BMP BADDOUR GETS LIVER AND LIPID MARI ANDFIKE GET TSH ANS CBCD Performed By: #### L 500.4100, L500.3400, L100.0100, L506.0400, L501.9520, L500.2500 ####[facility] [address] [place], [address] AST [Catalytic activity/Vol] 19 U/L Normal <=37 [facility] Comment on above: Order Comment: ALBERTO RICO GETS BMP BADDOUR GETS LIVER AND LIPID MARI ANDFIKE GET TSH ANS CBCD Performed By: #### L 500.4100, L500.3400, L100.0100, L506.0400, L501.9520, L500.2500 ####[facility] [address] [place], [address] Bilirubin [Mass/Vol] 0.33 mg/dL Normal 0.00-1.30 [facility] Comment on above: Order Comment: ALBERTO RICO GETS BMP BADDOUR GETS LIVER [facility] LIPID [facility] TSH [facility]S CBCD Performed By: #### L 500.4100, L500.3400, L100.0100, L506.0400, L501.9520, L500.2500 ####[facility] [address] [place], [address] Bilirubin.direct [Mass/Vol] 0.16 mg/dL Normal 0.00-0.30 [facility] Comment on above: Order Comment: ALBERTO RICO GETS BMP BADDOUR GETS LIVER AND LIPID MARI ANDFIKE GET TSH ANS CBCD Performed By: #### L 500.4100, L500.3400, L100.0100, L506.0400, L501.9520, L500.2500 ####[facility] [address] [place], [address] Globulin (S) [Mass/Vol] 3.7 g/dL Normal 2.2-4.2 [facility] Comment on above: Order Comment: ALBERTO RICO GETS BMP BADDOUR GETS LIVER AND LIPID MARI ANDFIKE GET TSH ANS CBCD Performed By: #### L 500.4100, L500.3400, L100.0100, L506.0400, L501.9520, L500.2500 ####[facility] [address] [facility] [place], [address] T PROT 7.6 g/dL Normal 5.9-8.4 [facility] Comment on above: Order Comment: ALBERTO RICO GETS BMP DERIKDONG GETS LIVER AND LIPID CHILOQUIN ANDKE GET TSH ANS CBCD Performed By: #### L 500.4100, L500.3400, L100.0100, L506.0400, L501.9520, L500.2500 ####[facility] [address] [facility] [place], [address] MCV (mean corpuscular volume ) determinationOrdered By: Toni Vann on 10-13-2024 MCV (RBC) [Entitic vol] 78.8 fL Low 80-94 [facility] Mean corpuscular hemoglobin (MCH) determinationOrdered By: Toni Vann on 10-13-2024 MCH (RBC) [Entitic mass] 24.1 pg Low 27.0-32.0 [facility] Monocyte percentageOrdered B y: Toni Vann on 10-13-2024 Monocytes/100 WBC (Bld) 4.2 % 0-10 [facility] Neutrophil percentageOrdered By: Toni Vann on 10-13-2024 Neutrophils/100 WBC (Bld) 89.3 % High 47-70 [facility] No Panel InformationOrdered By: Toni Vann on 10-13-2024 19 U/L <38 [facility] Platelet countOrdered By: Ra cassy Vann on 10-13-2024 Platelets (Bld) [#/Vol] 296 10*3/uL 150-450 [facility] Potassium measurement (mass/ volume)Ordered By: Toni Vann on 10-13-2024 Potassium (Unsp spec) [Mass/Vol] 4.0 mmol/L 3.3-5.1 [facility] RBC Auto (Bld) [#/Vol]Ordere d By: Toni Vann on 10-13-2024 RBC (Bld) [#/Vol] 4.24 10*6/uL Low 4.6-6.2 [facility] Serum creatinine measurement (mass/volume)Ordered By: Toni Vann on 10-13-2024 Creatinine [Mass/Vol] 1.89 mg/dL High 0.70-1.20 [facility] Serum globulin measurementOr dered By: Toni Vann on 10-13-2024 Globulin (S) [Mass/Vol] 3.7 g/dL 2.2-4.2 [facility] Serum glucose measurement (m ass/volume)Ordered By: Toni Vann 10-13-2024 Glucose [Mass/Vol] 490 mg/dL Critically high 70-99 [facility] Serum or plasma alanine briscoe otransferase (ALT) measurementOrdered By: Toni Vann 10-13-2024 ALT [Catalytic activity/Vol] 17 U/L <47 [facility] Serum or plasma albumin grazyna urement (mass/volume)Ordered By: Toni Vann 10-13-2024 Albumin [Mass/Vol] 3.9 g/dL 3.4-4.8 [facility] Serum or plasma alkaline benjamin sphatase measurementOrdered By: Toni Vann 10-13-2024 ALP [Catalytic activity/Vol] 57 U/L 40-129 [facility] Serum or plasma calcium grazyna urement (mass/volume)Ordered By: Toni Vann 10-13-2024 Calcium [Mass/Vol] 9.2 mg/dL 7.6-11.0 [facility] Serum or plasma cholesterol in HDL measurement (mass/volume)Ordered By: Toni Vann 10-13-2024 Cholesterol in HDL [Mass/Vol] 49 mg/dL >40 [facility] Serum or plasma cholesterol measurement (mass/volume)Ordered By: Toni Vann 10-13-2024 Cholesterol [Mass/Vol] 163 mg/dL <201 [facility] Serum or plasma urea nitroge n measurement (mass/volume)Ordered By: Toni Vann 10-13-2024 Urea nitrogen [Mass/Vol] 48 mg/dL High 4-19 [facility] Sodium levelOrdered By: Adrienne Vann on 10-13-2024 Sodium [Moles/Vol] 133 mmol/L 133-145 [facility] T4 Free Directon 10-13-2024 T4 FREE DIRECT 1.40 ng/dL Normal 0.76-1.46 [facility] Comment on above: Order Comment: ALBERTO RICO GETS BMP NANCY GETS LIVER AND LIPID MARI ANDNORMA GET TSH ANS CBCD Performed By: #### L 500.4100, L500.3400, L100.0100, L506.0400, L501.9520, L500.2500 ####[facility] [address] [place], [address] T4 freeOrdered By: Toni roque on 10-13-2024 Free T4 [Mass/Vol] 1.40 ng/dL 0.76-1.46 [facility] TSH DL <= 0.005 mIU/L QnOrde red By: Toni Vann on 10-13-2024 TSH Qn 0.480 uIU/mL 0.300-4.200 [facility] Thyroid Stim Hormone (TSH)on 10-13-2024 TSH 0.480 uIU/mL Normal 0.300-4.200 [facility] Comment on above: Order Comment: ALBERTO RICO GETS BMP NANCY GETS LIVER AND LIPID MARI URIASLIZETT GET TSH ANS CBCD Performed By: #### L 500.4100, L500.3400, L100.0100, L506.0400, L501.9520, L500.2500 ####[facility] [address] [place], [address] Total proteinOrdered By: Wilmar Vann on 10-13-2024 Protein [Mass/Vol] 7.6 g/dL 5.9-8.4 [facility] White blood cell (WBC) count Ordered By: Toni Vann on 10-13-2024 WBC (Bld) [#/Vol] 13.4 10*3/uL High 4.4-11.0 [facility] Fungal Culture/SmearOrdered By: Agnes Doyle on 10-12-2024 Fungus identified Cx Nom (Unsp spec) No fungi isolated. [facility] Fungus identified Cx Nom (Un sp spec)Ordered By: Agnes Doyle on 10-12-2024 Fungus identified Fungus stain Nom (Unsp spec) No fungal elements seen [facility] Neurology Visit Reporton Neurology Visit Report Normal [facility] 36on 10-06-2024 36 Patient called in to let us know he went off of his AC and aspirin therapy to have a lung biopsy to potentially diagnose interstitial lung disease. The day after his biopsy (SaturdayOctober 02), he had a "big stroke". He was told he was amira to walk away without severe deficits. The only deficit that remains is his left hand weakness. He says he can still manage a similar level of daily activities as he was prior to the recent stroke. He is now back on all blood thinners. He informed me he is requesting [facility] to electronically send over his MRI/CTA of most recent stroke. I told him to let me know if they want us to request it or if he has any trouble. He verbalized understanding. Normal [facility] Inital Evaluation (1) - PTon 10-05-2024 Inital Evaluation (1) - PT Normal [facility] Bedside Glucoseon 09-28-2024 FINGERSTICK GLU 361 mg/dL High 74-106 [facility] Comment on above: Result Comment: ANI BRADFORD OF PATIENT CARE PER NURSING PROTOCOL Performed By: #### L 501.080 ####[facility] [address] [place], [address] FINGERSTICK GLU 363 mg/dL High 74-106 [facility] Comment on above: Result Comment: ANI NELSONENT OF PATIENT CARE PER NURSING PROTOCOL Performed By: #### L 501.080 ####[facility] [address] [place], [address] FINGERSTICK GLU 232 mg/dL High 74-106 [facility] Comment on above: Result Comment: ANI GEMENT OF PATIENT CARE PER NURSING PROTOCOL Performed By: #### L 501.080 ####[facility] [address] [place], [place], [address] FINGERSTICK GLU 165 mg/dL High 74-106 [facility] Comment on above: Result Comment: ANI GEMENT OF PATIENT CARE PER NURSING PROTOCOL Performed By: #### L 501.080 ####[facility] [address] [place], [address] Echocardiogram study reportO rdered By: Sarah Parada on 09-28-2024 Study report [facility] Work Phone: Glucose measurement at [facility] deOrdered By: Karina Benítez on 09-28-2024 Glucose [Mass/Vol] 232 mg/dL High 74-106 [facility] H. capsulatum Ag IA Qn (S)Or dered By: Cathleen Driscoll on 09-28-2024 H. capsulatum Ag Ql (Unsp spec) Not detected Not Detected [facility] Scan Result See Scanned Result [facility] T-cell subsets CD4 and CD8 p janice (Bld)Ordered By: Demetrio Kim on 09-28-2024 CD3+CD4+ (T4 helper) cells/100 cells (Bld) 72 % not established [facility] CD3+CD4+ (T4 helper) cells/CD3+CD8+ (T8 suppressor cells) cells (Bld) [# ratio] 4.50 % not established [facility] CD3+CD8+ (T8 suppressor cells) cells/100 cells (Bld) 16 % not established [facility] Normal values have n ot been established for BAL specimens. This test is a Dual platform, multicolor, whole blood lysis assay. It was developed and its performance characteristics determined by the Department of Pathology, [facility], and has not been cleared or approved by the U.S. Food and Drug Administration. The laboratory is regulated under CLIA as qualified to perform high complexity testing. This test is used for clinical purposes. It should not be regarded as investigational or for research. Immunophenotypic analysis was performed using the following antibodies: CD45, CD3, CD4, and CD8 [facility] Absolute lymphocyte countOrd ered By: Xiao Berrios on 09-27-2024 Lymphocytes Auto (Unsp spec) [#/Vol] 2.19 10*3/uL 0.83-4.51 [facility] Anion gap in Serum or Plasma Ordered By: Xiao Berrios on 09-27-2024 Anion gap [Moles/Vol] 12 mmol/L 5-15 [facility] Automated lymphocyte count a s percentage of total leukocytesOrdered By: Xiao Berrios on 09-27-2024 Lymphocytes/100 WBC Auto (Unsp spec) 19.4 % -41 [facility] BUN/creatinine ratioOrdered By: Xiao Berrios on 09-27-2024 Urea nitrogen/Creatinine [Mass ratio] 22.7 mg/mg High 10- [facility] Basic Metabolic Profile (BMP )on 09-27-2024 BUN/CRE 22.7 RATIO High - [facility] Comment on above: Order Comment: Comme nts: NPO at [place] prior to lipid panel Performed By: #### L 500.2500, L500.4100, L100.0100 ####[facility] [address] [place], [address] Calcium [Mass/Vol] 9.2 mg/dL Normal 7.6-11.0 [facility] Comment on above: Order Comment: Comme nts: NPO at [place] prior to lipid panel Performed By: #### L 500.2500, L500.4100, L100.0100 ####[facility] [address] [place], [address] Chloride [Moles/Vol] 102 mmol/L Normal 98-108 [facility] Comment on above: Order Comment: Comme nts: NPO at [place] prior to lipid panel Performed By: #### L 500.2500, L500.4100, L100.0100 ####[facility] [address] [place], [address] CO2 [Moles/Vol] 24.8 mmol/L Normal 21.0-32.0 [facility] Comment on above: Order Comment: Comme nts: NPO at [place] prior to lipid panel Performed By: #### L 500.2500, L500.4100, L100.0100 ####[facility] [address] [place], [address] Creatinine [Mass/Vol] 1.19 mg/dL Normal 0.70-1.20 [facility] Comment on above: Order Comment: Comme nts: NPO at [place] prior to lipid panel Performed By: #### L 500.2500, L500.4100, L100.0100 ####[facility] [address] [place], [address] ECRCL 93.22 ml/min Normal 50-250 [facility] Comment on above: Order Comment: Comme nts: NPO at [place] prior to lipid panel Performed By: #### L 500.2500, L500.4100, L100.0100 ####[facility] [address] [place], [address] GAP 12 Normal 5-15 [facility] Comment on above: Order Comment: Comme nts: NPO at [place] prior to lipid panel Performed By: #### L 500.2500, L500.4100, L100.0100 ####[facility] [address] [place], [address] GFR/1.73 sq M.predicted among non-blacks MDRD (S/P/Bld) [Vol rate/Area] 69 mL/min/{1.73_m2} Normal >60 [facility] Comment on above: Order Comment: Comme nts: NPO at [place] prior to lipid panel Result Comment: mL/m in/1.73m2 CKD-EPI Creatinine Equation (2020) Performed By: #### L 500.2500, L500.4100, L100.0100 ####[facility] [address] [place], [address] Glucose [Mass/Vol] 97 mg/dL Normal 70-99 [facility] Comment on above: Order Comment: Comme nts: NPO at [place] prior to lipid panel Performed By: #### L 500.2500, L500.4100, L100.0100 ####[facility] [address] [place], [address] Potassium [Moles/Vol] 3.9 mmol/L Normal 3.3-5.1 [facility] Comment on above: Order Comment: Comme nts: NPO at [place] prior to lipid panel Result Comment: Hemo lysis present, Results??could be affected.?? Performed By: #### L 500.2500, L500.4100, L100.0100 ####[facility] [address] [place], [address] Sodium [Moles/Vol] 138 mmol/L Normal 133-145 [facility] Comment on above: Order Comment: Comme nts: NPO [place] prior to lipid panel Performed By: #### L 500.2500, L500.4100, L100.0100 ####[facility] [address] [place], [address] Urea nitrogen [Mass/Vol] 27 mg/dL High 4-19 [facility] Comment on above: Order Comment: Comme nts: [place]PO [place] prior to lipid panel Performed By: #### L 500.2500, L500.4100, L100.0100 ####[facility] [address] [place], [address] Basophil percentageOrdered B y: Xiao Berrios on 09-27-2024 Basophils/100 WBC (Bld) 0.4 % 0-1 [facility] Bedside Glucoseon 09-27-2024 FINGERSTICK GLU 348 mg/dL High 74-106 [facility] Comment on above: Result Comment: ANI BRADFORD OF PATIENT CARE PER NURSING PROTOCOL Performed By: #### L 501.080 ####[facility] [address] [place], [address] FINGERSTICK GLU 163 mg/dL High 74-106 [facility] Comment on above: Result Comment: ANI GEMENT OF PATIENT CARE PER NURSING PROTOCOL Performed By: #### L 501.080 ####[facility] [address] [place], [address] FINGERSTICK GLU 106 mg/dL Normal 74-106 [facility] Comment on above: Result Comment: ANI GEMENT OF PATIENT CARE PER NURSING PROTOCOL Performed By: #### L 501.080 ####[facility] [address] [place], [address] Brain without Contraston Brain without Contrast Normal [facility] CBC W/Diff, Automatedon 08-31 Absolute Lymph 2.19 X10 3/uL Normal 0.83-4.51 [facility] Comment on above: Performed By: #### L 500.2500, L500.4100, L100.0100 ####[facility] [address] [place], [address] Absolute Neut 7.8 X10 3/uL High 2.0-7.7 [facility] Comment on above: Performed By: #### L 500.2500, L500.4100, L100.0100 ####[facility] [address] [place], [address] Basophils/100 WBC (Bld) 0.4 % Normal 0-1 [facility] Comment on above: Performed By: #### L 500.2500, L500.4100, L100.0100 ####[facility] [address] [place], [address] Eosinophils/100 WBC (Bld) 1.7 % Normal 0-5 [facility] Comment on above: Performed By: #### L 500.2500, L500.4100, L100.0100 ####[facility] [address] [place], [address] Erythrocyte distribution width (RBC) [Ratio] 17.8 % High 11.6-14.6 [facility] Comment on above: Performed By: #### L 500.2500, L500.4100, L100.0100 ####[facility] [address] [place], [address] Hematocrit (Bld) [Volume fraction] 29.3 % Low 40-54 [facility] Comment on above: Performed By: #### L 500.2500, L500.4100, L100.0100 ####[facility] [address] [place], [address] Hemoglobin (Bld) [Mass/Vol] 8.9 g/dL Low 13.0-16.5 [facility] Comment on above: Performed By: #### L 500.2500, L500.4100, L100.0100 ####[facility] [address] [place], [address] IG% 0.700 Normal 0.0-0.9 [facility] Comment on above: Result Comment: IG% - Immature Granulocytes (promyelocytes, myelocytes andmetamyelocytes) > 1% indicates that a LEFT SHIFT is Present. Performed By: #### L 500.2500, L500.4100, L100.0100 ####[facility] [address] [place], [address] Lymphocytes/100 WBC (Bld) 19.4 % Normal 19-41 [facility] Comment on above: Performed By: #### L 500.2500, L500.4100, L100.0100 ####[facility] [address] [place], [address] MCH (RBC) [Entitic mass] 24.2 pg Low 27.0-32.0 [facility] Comment on above: Performed By: #### L 500.2500, L500.4100, L100.0100 ####[facility] [address] [place], [address] MCHC (RBC) [Mass/Vol] 30.4 g/dL Low 32-36 [facility] Comment on above: Performed By: #### L 500.2500, L500.4100, L100.0100 ####[facility] [address] [place], [address] MCV (RBC) [Entitic vol] 79.6 fL Low 80-94 [facility] Comment on above: Performed By: #### L 500.2500, L500.4100, L100.0100 ####[facility] [address] [place], [address] Monocytes/100 WBC (Bld) 8.9 % Normal 0-10 [facility] Comment on above: Performed By: #### L 500.2500, L500.4100, L100.0100 ####[facility] [address] [place], [address] Neutrophils/100 WBC (Bld) 68.9 % Normal 47-70 [facility] Comment on above: Performed By: #### L 500.2500, L500.4100, L100.0100 ####[facility] [address] [place], [address] Nucleated RBC (Bld) [#/Vol] 0 10*3/uL Normal 0-5 [facility] Comment on above: Performed By: #### L 500.2500, L500.4100, L100.0100 ####[facility] [address] [place], [address] Platelet mean volume (Bld) [Entitic vol] 9.8 fL Normal 6.2-12.0 [facility] Comment on above: Performed By: #### L 500.2500, L500.4100, L100.0100 ####[facility] [address] [place], [address] Platelets (Bld) [#/Vol] 214 10*3/uL Normal 150-450 [facility] Comment on above: Performed By: #### L 500.2500, L500.4100, L100.0100 ####[facility] [address] [place], [address] RBC (Bld) [#/Vol] 3.68 10*6/uL Low 4.6-6.2 [facility] Comment on above: Performed By: #### L 500.2500, L500.4100, L100.0100 ####[facility] [address] [place], [address] RDW SD 51.2 fl High 35.1-43.9 [facility] Comment on above: Performed By: #### L 500.2500, L500.4100, L100.0100 ####[facility] [address] [place], [address] WBC (Bld) [#/Vol] 11.3 10*3/uL High 4.4-11.0 [facility] Comment on above: Performed By: #### L 500.2500, L500.4100, L100.0100 ####[facility] [address] [place], [address] Calculated very low density lipoprotein (VLDL) cholesterol measurementOrdered By: Xiao Berrios on 09-27-2024 Calculated very low density lipoprotein (VLDL) cholesterol measurement 32 mg/dL 5-40 [facility] Carbon dioxide, total [Moles /volume] in Central venous bloodOrdered By: Xiao Berrios on 09-27-2024 CO2 [Moles/Vol] 24.8 mmol/L 21.0-32.0 [facility] Chloride assayOrdered By: Tunde Berrios on 09-27-2024 Chloride [Moles/Vol] 102 mmol/L 98-108 [facility] Eosinophil percentageOrdered By: Xiao Berrios on 09-27-2024 Eosinophils/100 WBC (Bld) 1.7 % 0-5 [facility] Erythrocyte distribution wid th ratioOrdered By: Xiao Berrios on 09-27-2024 Erythrocyte distribution width (RBC) [Ratio] 17.8 % High 11.6-14.6 [facility] Erythrocyte distribution wid th standard deviationOrdered By: Xiao Berrios on 09-27-2024 Erythrocyte distribution width (RBC) [Ratio] 51.2 fl High 35.1-43.9 [facility] Glomerular filtration rate ( GFR) estimation/1.73 sq m using serum, plasma, or whole bOrdered By: Xiao Berrios on 09-27-2024 GFR/1.73 sq M.predicted among non-blacks MDRD (S/P/Bld) [Vol rate/Area] 69 mL/min/{1.73_m2} >60 [facility] Hematocrit Auto (Bld) [Volum e fraction]Ordered By: Xiao Berrios on 09-27-2024 Hematocrit (Bld) [Volume fraction] 29.3 % Low 40-54 [facility] Hemoglobin A1con 09-27-2024 HbA1c (Bld) [Mass fraction] 8.4 % High <=5.6 [facility] Comment on above: Result Comment: Norm al < 5.7 % Prediabetic 5.7 - 6.4 % Diabetic >or= 6.5 % Please note range changes. Performed By: #### L 501.9985 ####[facility] [address] [place], [address] Hemoglobin A1c percentageOrd ered By: Xiao Berrios on 09-27-2024 HbA1c (Bld) [Mass fraction] 8.4 % High <5.7 [facility] Hemoglobin measurementOrdere d By: Xiao Berrios on 09-27-2024 Hemoglobin (Bld) [Mass/Vol] 8.9 g/dL Low 13.0-16.5 [facility] Immature granulocytes/100 WB C Auto (Bld)Ordered By: Xiao Berrios on 09-27-2024 Immature granulocytes/100 WBC (Bld) 0.700 % 0.0-0.9 [facility] LDL calc ser/plasOrdered By: Xiao Berrios on 09-27-2024 Cholesterol in LDL [Mass/Vol] 64 mg/dL [facility] Lipid Profileon 09-27-2024 CHOL:HDL 2.83 Normal [facility] Comment on above: Order Comment: Comme nts: NPO at [place] prior to lipid panel Performed By: #### L 500.2500, L500.4100, L100.0100 ####[facility] [address] [place], [address] Cholesterol [Mass/Vol] 148 mg/dL Normal <=200 [facility] Comment on above: Order Comment: Comme nts: NPO at [place] prior to lipid panel Result Comment: Chol esterol level, Desirable <200 mg/dLBorderline high cholesterol 200-239 mg/dLHigh cholesterol >=240 mg/dLRecommendations of the NCEP Adult Treatment Panel for thefollowing risk-cutoff thresholds for the [place] [facility]. Performed By: #### L 500.2500, L500.4100, L100.0100 ####[facility] [address] [place], [address] Cholesterol in HDL [Mass/Vol] 52 mg/dL Normal [facility] Comment on above: Order Comment: Comme nts: [place]PO [place] prior to lipid panel Result Comment: Mary Ann onal Cholesterol Education Program (NCEP) guidelines:<40 mg/dL: Low HDL-cholesterol (major risk factor for CHD)>= 60 mg/dL: High HDL-cholesterol (negative risk factor forCHD)HDL-cholesterol is affected by a number of factors, e.g.smoking, exercise, hormones, sex and age. Performed By: #### L 500.2500, L500.4100, L100.0100 ####[facility] [address] [place], [address] Cholesterol in LDL [Mass/Vol] 64 mg/dL Normal [facility] Comment on above: Order Comment: Comme nts: [place]PO at [place] prior to lipid panel Result Comment: Bord gmjome=381-551 mg/dL Higher Aehg=833 mg/dL or greater Performed By: #### L 500.2500, L500.4100, L100.0100 ####[facility] [address] [place], [address] Cholesterol in VLDL [Mass/Vol] 32 mg/dL Normal 5-40 [facility] Comment on above: Order Comment: Comme nts: NPO at [place] prior to lipid panel Performed By: #### L 500.2500, L500.4100, L100.0100 ####[facility] [address] [place], [address] Triglyceride [Mass/Vol] 159 mg/dL Normal [facility] Comment on above: Order Comment: Comme nts: NPO at [place] prior to lipid panel Result Comment: The drugs N-Acetylcysteine and Metamizole may falselydepress this assay.Normal range: <150 mg/dLBorderline High: 150-199 mg/dLHigh: 200-499 mg/dLVery High: >500 mg/dL Performed By: #### L 500.2500, L500.4100, L100.0100 ####[facility] [address] [place], [address] MCV (mean corpuscular volume ) determinationOrdered By: Xiao Berrios on 09-27-2024 MCV (RBC) [Entitic vol] 79.6 fL Low 80-94 [facility] MR/CON.PCM.NEon 09-27-2024 MR/CON.PCM.NE Normal [facility] Magnetic resonance imaging r eportOrdered By: Rosita Newberry on 09-27-2024 Study report [facility] Mean corpuscular hemoglobin (MCH) determinationOrdered By: Xiao Berrios on 09-27-2024 MCH (RBC) [Entitic mass] 24.2 pg Low 27.0-32.0 [facility] Monocyte percentageOrdered B y: Xiao Berrios on 09-27-2024 Monocytes/100 WBC (Bld) 8.9 % 0-10 [facility] Neutrophil percentageOrdered By: Xiao Berrios on 09-27-2024 Neutrophils/100 WBC (Bld) 68.9 % 47-70 [facility] Platelet countOrdered By: Tunde Berrios on 09-27-2024 Platelets (Bld) [#/Vol] 214 10*3/uL 150-450 [facility] Potassium measurement (mass/ volume)Ordered By: Xiao Berrios on 09-27-2024 Potassium (Unsp spec) [Mass/Vol] 3.9 mmol/L 3.3-5.1 [facility] RBC Auto (Bld) [#/Vol]Ordere d By: Xiao Berrios on 09-27-2024 RBC (Bld) [#/Vol] 3.68 10*6/uL Low 4.6-6.2 [facility] Serum creatinine measurement (mass/volume)Ordered By: Xiao Berrios on 09-27-2024 Creatinine [Mass/Vol] 1.19 mg/dL 0.70-1.20 [facility] Serum glucose measurement (m ass/volume)Ordered By: Xiao Berrios on 09-27-2024 Glucose [Mass/Vol] 97 mg/dL 70-99 [facility] Serum or plasma calcium grazyna urement (mass/volume)Ordered By: Xiao Berrios on 09-27-2024 Calcium [Mass/Vol] 9.2 mg/dL 7.6-11.0 [facility] Serum or plasma cholesterol in HDL measurement (mass/volume)Ordered By: Xiao Berrios on 09-27-2024 Cholesterol in HDL [Mass/Vol] 52 mg/dL >40 [facility] Serum or plasma cholesterol measurement (mass/volume)Ordered By: Xiao Berrios on 09-27-2024 Cholesterol [Mass/Vol] 148 mg/dL <201 [facility] Serum or plasma urea nitroge n measurement (mass/volume)Ordered By: Xiao Berrios on 09-27-2024 Urea nitrogen [Mass/Vol] 27 mg/dL High 4-19 [facility] Sodium levelOrdered By: Irwin Berrios on 09-27-2024 Sodium [Moles/Vol] 138 mmol/L 133-145 [facility] White blood cell (WBC) count Ordered By: Xiao Berrios on 09-27-2024 WBC (Bld) [#/Vol] 11.3 10*3/uL High 4.4-11.0 [facility] 12 Lead EKGon 09-26-2024 12 Lead EKG Normal [facility] Absolute lymphocyte countOrd ered By: Angelmelisa Avitia on 09-26-2024 Lymphocytes Auto (Unsp spec) [#/Vol] 0.58 10*3/uL Low 0.83-4.51 [facility] Absolute neutrophil countOrd ered By: Angel Avitia on 09-26-2024 Neutrophils (Bld) [#/Vol] 11.9 10*3/uL High 2.0-7.7 [facility] Activated partial thrombopla stin time (aPTT) in platelet poor plasma by coagulation aOrdered By: Angel Avitia on 09-26-2024 aPTT Coag (PPP) [Time] 20.8 s Low 24.1-36.2 [facility] Anion gap in Serum or Plasma Ordered By: Angel Avitia on 09-26-2024 Anion gap [Moles/Vol] 15 mmol/L 5-15 [facility] Automated lymphocyte count a s percentage of total leukocytesOrdered By: Angelmelisa Avitia on 09-26-2024 Lymphocytes/100 WBC Auto (Unsp spec) 4.2 % Low 19-41 [facility] BUN/creatinine ratioOrdered By: [facility]24 Urea nitrogen/Creatinine [Mass ratio] 24.6 mg/mg High 10 [facility] Bacteria identified Respirat ory culture Nom (Unsp spec)Ordered By: Nely Brasher on 09-26-2024 Microscopic observation Gram stain Nom (Unsp spec) (2+) Few Polymorphonuclear leukocytes [facility] Microscopic observation Gram stain Nom (Unsp spec) No organisms seen [facility] Basic Metabolic Profile (BMP )on 09-26-2024 BUN/CRE 24.6 RATIO High 10 [facility] Comment on above: Performed By: #### L 300.4310, L100.0100, L501.4021, L500.2500, L300.3900 ####[facility] [address] [place], [address] Calcium [Mass/Vol] 9.0 mg/dL Normal 7.6-11.0 [facility] Comment on above: Performed By: #### L 300.4310, L100.0100, L501.4021, L500.2500, L300.3900 ####[facility] [address] [place], [address] Chloride [Moles/Vol] 100 mmol/L Normal 98-108 [facility] Comment on above: Performed By: #### L 300.4310, L100.0100, L501.4021, L500.2500, L300.3900 ####[facility] [address] [place], [address] CO2 [Moles/Vol] 22.9 mmol/L Normal 21.0-32.0 [facility] Comment on above: Performed By: #### L 300.4310, L100.0100, L501.4021, L500.2500, L300.3900 ####[facility] [address] [place], [address] Creatinine [Mass/Vol] 1.26 mg/dL High 0.70-1.20 [facility] Comment on above: Performed By: #### L 300.4310, L100.0100, L501.4021, L500.2500, L300.3900 ####[facility] [address] [place], [address] GAP 15 Normal 5-15 [facility] Comment on above: Performed By: #### L 300.4310, L100.0100, L501.4021, L500.2500, L300.3900 ####[facility] [address] [place], [address] GFR/1.73 sq M.predicted among non-blacks MDRD (S/P/Bld) [Vol rate/Area] 65 mL/min/{1.73_m2} Normal >60 [facility] Comment on above: Result Comment: mL/m in/1.73m2 CKD-EPI Creatinine Equation (2020) Performed By: #### L 300.4310, L100.0100, L501.4021, L500.2500, L300.3900 ####[facility] [address] [place], [address] Glucose [Mass/Vol] 246 mg/dL High 70-99 [facility] Comment on above: Performed By: #### L 300.4310, L100.0100, L501.4021, L500.2500, L300.3900 ####[facility] [address] [place], [address] Potassium [Moles/Vol] 4.2 mmol/L Normal 3.3-5.1 [facility] Comment on above: Result Comment: Hemo lysis present, Results??could be affected.?? Performed By: #### L 300.4310, L100.0100, L501.4021, L500.2500, L300.3900 ####[facility] [address] [place], [address] Sodium [Moles/Vol] 138 mmol/L Normal 133-145 [facility] Comment on above: Performed By: #### L 300.4310, L100.0100, L501.4021, L500.2500, L300.3900 ####[facility] [address] [place], [address] Urea nitrogen [Mass/Vol] 31 mg/dL High 4-19 [facility] Comment on above: Performed By: #### L 300.4310, L100.0100, L501.4021, L500.2500, L300.3900 ####[facility] [address] [place], [address] Basophil percentageOrdered B y: Angel Avitia on 09-26-2024 Basophils/100 WBC (Bld) 0.4 % 0-1 [facility] Bedside Glucoseon 09-26-2024 FINGERSTICK GLU 172 mg/dL High 74-106 [facility] Comment on above: Result Comment: ANI BRADFORD OF PATIENT CARE PER NURSING PROTOCOL Performed By: #### L 501.080 ####[facility] [address] [place], [address] CBC W/Diff, Automatedon 06-2 Absolute Lymph 0.58 X10 3/uL Low 0.83-4.51 [facility] Comment on above: Performed By: #### L 300.4310, L100.0100, L501.4021, L500.2500, L300.3900 ####[facility] [address] [place], [address] Absolute Neut 11.9 X10 3/uL High 2.0-7.7 [facility] Comment on above: Performed By: #### L 300.4310, L100.0100, L501.4021, L500.2500, L300.3900 ####[facility] [address] [place], [address] Basophils/100 WBC (Bld) 0.4 % Normal 0-1 [facility] Comment on above: Performed By: #### L 300.4310, L100.0100, L501.4021, L500.2500, L300.3900 ####[facility] [address] [place], [address] Eosinophils/100 WBC (Bld) 0.6 % Normal 0-5 [facility] Comment on above: Performed By: #### L 300.4310, L100.0100, L501.4021, L500.2500, L300.3900 ####[facility] [address] [place], [address] Erythrocyte distribution width (RBC) [Ratio] 17.9 % High 11.6-14.6 [facility] Comment on above: Performed By: #### L 300.4310, L100.0100, L501.4021, L500.2500, L300.3900 ####[facility] [address] [place], [address] Hematocrit (Bld) [Volume fraction] 30.0 % Low 40-54 [facility] Comment on above: Performed By: #### L 300.4310, L100.0100, L501.4021, L500.2500, L300.3900 ####[facility] [address] [place], [address] Hemoglobin (Bld) [Mass/Vol] 9.1 g/dL Low 13.0-16.5 [facility] Comment on above: Performed By: #### L 300.4310, L100.0100, L501.4021, L500.2500, L300.3900 ####[facility] [address] [place], [address] IG% 0.800 Normal 0.0-0.9 [facility] Comment on above: Result Comment: IG% - Immature Granulocytes (promyelocytes, myelocytes andmetamyelocytes) > 1% indicates that a LEFT SHIFT is Present. Performed By: #### L 300.4310, L100.0100, L501.4021, L500.2500, L300.3900 ####[facility] [address] [place], [address] Lymphocytes/100 WBC (Bld) 4.2 % Low 19-41 [facility] Comment on above: Performed By: #### L 300.4310, L100.0100, L501.4021, L500.2500, L300.3900 ####[facility] [address] [place], [address] MCH (RBC) [Entitic mass] 24.0 pg Low 27.0-32.0 [facility] Comment on above: Performed By: #### L 300.4310, L100.0100, L501.4021, L500.2500, L300.3900 ####[facility] [address] [place], [address] MCHC (RBC) [Mass/Vol] 30.3 g/dL Low 32-36 [facility] Comment on above: Performed By: #### L 300.4310, L100.0100, L501.4021, L500.2500, L300.3900 ####[facility] [address] [place], [address] MCV (RBC) [Entitic vol] 79.2 fL Low 80-94 [facility] Comment on above: Performed By: #### L 300.4310, L100.0100, L501.4021, L500.2500, L300.3900 ####[facility] [address] [place], [address] Monocytes/100 WBC (Bld) 8.7 % Normal 0-10 [facility] Comment on above: Performed By: #### L 300.4310, L100.0100, L501.4021, L500.2500, L300.3900 ####[facility] [address] [place], [address] Neutrophils/100 WBC (Bld) 85.3 % High 47-70 [facility] Comment on above: Performed By: #### L 300.4310, L100.0100, L501.4021, L500.2500, L300.3900 ####[facility] [address] [place], [address] Nucleated RBC (Bld) [#/Vol] 0 10*3/uL Normal 0-5 [facility] Comment on above: Performed By: #### L 300.4310, L100.0100, L501.4021, L500.2500, L300.3900 ####[facility] [address] [place], [address] Platelet mean volume (Bld) [Entitic vol] 10.4 fL Normal 6.2-12.0 [facility] Comment on above: Performed By: #### L 300.4310, L100.0100, L501.4021, L500.2500, L300.3900 ####[facility] [address] [place], [address] Platelets (Bld) [#/Vol] 237 10*3/uL Normal 150-450 [facility] Comment on above: Performed By: #### L 300.4310, L100.0100, L501.4021, L500.2500, L300.3900 ####[facility] [address] [place], [address] RBC (Bld) [#/Vol] 3.79 10*6/uL Low 4.6-6.2 [facility] Comment on above: Performed By: #### L 300.4310, L100.0100, L501.4021, L500.2500, L300.3900 ####[facility] [address] [place], [address] RDW SD 50.9 fl High 35.1-43.9 [facility] Comment on above: Performed By: #### L 300.4310, L100.0100, L501.4021, L500.2500, L300.3900 ####[facility] [address] [place], [address] WBC (Bld) [#/Vol] 14.0 10*3/uL High 4.4-11.0 [facility] Comment on above: Performed By: #### L 300.4310, L100.0100, L501.4021, L500.2500, L300.3900 ####[facility] [address] [place], [address] Carbon dioxide, total [Moles /volume] in Central venous bloodOrdered By: Angel Avitia on 09-26-2024 CO2 [Moles/Vol] 22.9 mmol/L 21.0-32.0 [facility] Chloride assayOrdered By: Domonique Avitia on 09-26-2024 Chloride [Moles/Vol] 100 mmol/L 98-108 [facility] Echo Complete W/ Contraston 09-26-2024 Echo Complete W/ Contrast Normal [facility] Emergency Department Summary on 09-26-2024 Emergency Department Summary Normal [facility] Eosinophil percentageOrdered By: Angel Avitia on 09-26-2024 Eosinophils/100 WBC (Bld) 0.6 % 0-5 [facility] Erythrocyte distribution wid th ratioOrdered By: Angel Avitia on 09-26-2024 Erythrocyte distribution width (RBC) [Ratio] 17.9 % High 11.6-14.6 [facility] Erythrocyte distribution wid th standard deviationOrdered By: Angel Avitia on 09-26-2024 Erythrocyte distribution width (RBC) [Ratio] 50.9 fl High 35.1-43.9 [facility] Glomerular filtration rate ( GFR) estimation/1.73 sq m using serum, plasma, or whole bOrdered By: Angel Avitia on 09-26-2024 GFR/1.73 sq M.predicted among non-blacks MDRD (S/P/Bld) [Vol rate/Area] 65 mL/min/{1.73_m2} >60 [facility] Comment on above: mL/min/1.73m2 CKD-EP I Creatinine Equation (2020) H AND P Exam - Hospital[place] 09-26-2024 H&P Exam - Hospitalist Normal [facility] Hematocrit Auto (Bld) [Volum e fraction]Ordered By: Angel Avitia on 09-26-2024 Hematocrit (Bld) [Volume fraction] 30.0 % Low 40-54 [facility] Hemoglobin measurementOrdere d By: Angel Avitia on 09-26-2024 Hemoglobin (Bld) [Mass/Vol] 9.1 g/dL Low 13.0-16.5 [facility] Immature granulocytes/100 WB C Auto (Bld)Ordered By: Angel Avitia on 09-26-2024 Immature granulocytes/100 WBC (Bld) 0.800 % 0.0-0.9 [facility] Comment on above: IG% - Immature Granu locytes (promyelocytes, myelocytes and metamyelocytes) > 1% indicates that a LEFT SHIFT is Present. International normalized rat io (INR) calculationOrdered By: Angel Avitia on 09-26-2024 INR Coag (Bld) [Relative time] 1.0 {INR} [facility] L499.0042on 09-26-2024 Trop T High Sen 42 ng/L High <=22 [facility] Comment on above: Performed By: #### L 499.0042 ####[facility] [address] [place], [address] L499.0043on 09-26-2024 Trop T High Sen 40 ng/L High <=22 [facility] Comment on above: Result Comment: Hemo lysis present, Results??could be affected.?? Performed By: #### L 499.0043 ####[facility] [address] [place], [address] L501.4021on 09-26-2024 Trop T High Sen 47 ng/L High <=22 [facility] Comment on above: Performed By: #### L 300.4310, L100.0100, L501.4021, L500.2500, L300.3900 ####[facility] [address] [place], [address] MCV (mean corpuscular volume ) determinationOrdered By: Angelmelisa Avitia on 09-26-2024 MCV (RBC) [Entitic vol] 79.2 fL Low 80-94 [facility] Mean corpuscular hemoglobin (MCH) determinationOrdered By: Angel Avitia on 09-26-2024 MCH (RBC) [Entitic mass] 24.0 pg Low 27.0-32.0 [facility] Mean corpuscular hemoglobin concentration (MCHC) determinationOrdered By: Angel [facility] on 09-26-2024 MCHC (RBC) [Mass/Vol] 30.3 g/dL Low 32-36 [facility] Mean platelet volume determi nationOrdered By: Angelmelisa Avitia on 09-26-2024 Platelet mean volume (Bld) [Entitic vol] 10.4 fL 6.2-12.0 [facility] Monocyte percentageOrdered B y: Angelmelisa Avitia on 09-26-2024 Monocytes/100 WBC (Bld) 8.7 % 0-10 [facility] Neutrophil percentageOrdered By: [facility] on 09-26-2024 Neutrophils/100 WBC (Bld) 85.3 % High 47-70 [facility] Nucleated red blood cell per centageOrdered By: [facility] on 09-26-2024 Nucleated RBC/100 WBC (Bld) [Ratio] 0 % 0-5 [facility] Partial Thromboplast Timeon 09-26-2024 aPTT Coag (Bld) [Time] 20.8 s Low 24.1-36.2 [facility] Comment on above: Performed By: #### L 300.4310, L100.0100, L501.4021, L500.2500, L300.3900 ####[facility] [address] [place], [place], [address] Platelet countOrdered By: melisa Avitia on 09-26-2024 Platelets (Bld) [#/Vol] 237 10*3/uL 150-450 [facility] Potassium measurement (mass/ volume)Ordered By: Angel Avitia on 09-26-2024 Potassium (Unsp spec) [Mass/Vol] 4.2 mmol/L 3.3-5.1 [facility] Comment on above: Hemolysis present, R esults could be affected. Prothrombin Time w/INRon INR Coag (PPP) [Relative time] 1.0 {INR} Normal [facility] Comment on above: Performed By: #### L 300.4310, L100.0100, L501.4021, L500.2500, L300.3900 ####[facility] [address] [place], [address] PT Coag (PPP) [Time] 13.1 s Normal 11.7-14.9 [facility] Comment on above: Performed By: #### L 300.4310, L100.0100, L501.4021, L500.2500, L300.3900 ####[facility] [address] [place], [address] Prothrombin timeOrdered By: Angel Avitia on 09-26-2024 PT Coag (PPP) [Time] 13.1 s 11.7-14.9 [facility] RBC Auto (Bld) [#/Vol]Ordere d By: Angel Avitia on 09-26-2024 RBC (Bld) [#/Vol] 3.79 10*6/uL Low 4.6-6.2 [facility] Respiratory Culture/SmearOrd ered By: Nely Brasher on 09-26-2024 Bacteria identified Respiratory culture Nom (Unsp spec) No growth aerobically and anaerobically [facility] STROKE Brain/Head without Co nton 09-26-2024 STROKE Brain/Head without Cont Normal [facility] STROKE CTA Head AND Neck W/C onon 09-26-2024 STROKE CTA Head AND Neck W/Con Normal [facility] Serum creatinine measurement (mass/volume)Ordered By: Angel Avitia on 09-26-2024 Creatinine [Mass/Vol] 1.26 mg/dL High 0.70-1.20 [facility] Serum glucose measurement (m ass/volume)Ordered By: Angel Avitia on 09-26-2024 Glucose [Mass/Vol] 246 mg/dL High 70-99 [facility] Serum or plasma calcium grazyna urement (mass/volume)Ordered By: Angelmelisa Avitia on 09-26-2024 Calcium [Mass/Vol] 9.0 mg/dL 7.6-11.0 [facility] Serum or plasma urea nitroge n measurement (mass/volume)Ordered By: Angelmelisa Avitia on 09-26-2024 Urea nitrogen [Mass/Vol] 31 mg/dL High 4-19 [facility] Sodium levelOrdered By: Angelmelisa Avitia on 09-26-2024 Sodium [Moles/Vol] 138 mmol/L 133-145 [facility] Troponin T.cardiac [Mass/vol ume] in Serum or Plasma by High sensitivity methodOrdered By: Angel Avitia on 09-26-2024 Troponin T.cardiac High sensitivity method [Mass/Vol] 40 ng/L High <22 [facility] Troponin T.cardiac High sensitivity method [Mass/Vol] 42 ng/L High <22 [facility] Troponin T.cardiac High sensitivity method [Mass/Vol] 47 ng/L High <22 [facility] White blood cell (WBC) count Ordered By: Angel Avitia on 09-26-2024 WBC (Bld) [#/Vol] 14.0 10*3/uL High 4.4-11.0 [facility] Aspergillus Galactomannan EI A (Non-Blood Specimen)on 09-25-2024 Galactomannan Ag IA Qn 0.027 NINF - 0.500 [facility] Comment on above: Interpretation: Amber ents with an index value of greater than [...] Aspergillus Galactomannan EIA is a product of [employer] and is FDA approved for in vitro diagnostic use. Testing Performed at: [facility] [address] [place] [address], [address] [place] [address] Business Intelligence Administrator: José Harris, PhD [facility] ([facility]) CLIA # [id number] FLAG Interpretation: A = Abnormal, H = High, L = Low [facility] Legionella PCR Panelon 09-25 Legionella Pneumo PCR Not detected Not Detected [facility] Comment on above: This test was develo ped and its performance characteristics determined by [employer]. It has not been cleared or approved by the U.S. Food and Drug Administration. Results should be used in conjunction with clinical findings, and should not form the sole basis for a diagnosis or treatment decision. Testing Performed at: [facility] [address] [place] [address], [address] [place] [address] Business Intelligence Administrator: José Harris, PhD BCLD (ABB) CLIA # [id number] FLAG Interpretation: A = Abnormal, H = High, L = Low [place].Legionella PCR Not detected Not Detected [facility] Non-gynecological cytology m ethod studyOrdered By: Lyudmila Valentin on 09-25-2024 Laboratory comment [facility] (Report) [id number] uZzEwMzNcZnRuYmpcdWMxIH tccnRmMVxhbnNpXGRlZmxhb hrrSKRxXIX6vwTySSMyUGW0 GCT6NrKup7P4EPPhBtAuIHR jAR0fpIfnSZBbJU4nTWGgG4 pqhA4reul9AhGeDZWeAdQ0W ZOdycN2Ygy5LAJcKDcbr0ri d5NdO5Pyo0SvBWe2yBjyOsA cTUEvz7orjgZfFaJdOZDzJH VjZMKgZ65qODRBM620l5nlj 6vhugGxgSY4NNYdDXW1UCwb ixIxnaK5KEpmyGVuUeQ8CJg otkYeLTifjfLpdnTrQdi9PZ HvU641NDR7mIfme0fdBSZ4F IFqIMKiRmQqFt9dqWPbM439 YOZpISKIRWZnkRi8XJJxfiF btxZvtQUBe139I636c2kmJX NhniYrbWqZjkbja0eoW461S HBhcGVydzEyMjQwXHBhcGVy pPE2QIYeKT5rfjraDAyoDKs zHKLirgO7NQPlqGXkC0FdBN FoCZ5rarlnHMF6DGyoHLOiJ UA4KuDqHDCry1Vgzoi0BhCw ih7jce82WYT1q8ExtOtvSWK 1BWR0PjOtHd7mxMYxREQrCU 1jEtCktAKcJWAnqa17iPitC YavscRljZ2uNpJnZWShdOQh TUVzHX0roYZjZEZcuJ9bkvu jXHBnYnJkcmhlYWRccGdicm PaEn3cnParHTZ2WLjxO0vxo X5dFrU6WYvcU7aylY3xADz1 FVqayRX4BKJuxG6aDG2sstw by9qbNQntAEqrJZWppmV7sq T0FVYhbYDdU8SrfK8cMRVbQ Q6iwlnoh7dhDHH3YWycYRKf JQO5TuJqDEGrl8Mfolu1ToB ep9HyhBVaNSfmF03cv560GN AlxrIiK9plwOBszwlqvIVwi desRPxpprF1KZHsTOZtLZpq XGYxXGZzMjBcbGFuZzEwMzN caGljaFxmMVxkYmNoXGYxXG aaV3spNiZeU1NyMWUiXlLsZ 3awZDAefuppxY3kqBksvGf5 OBVzemXyehIySOQ7JZGgpBo aFRicOVD5eG6vTBSXIYBptA ATILWeRZJKRGNXPHFMKJ2EB VIgMTExMDAgRVVDTElEIEFW LAgjUIFgZ0qPVlZAIS0QHS1 LQCM5VXN7FUA4LJMzuPjkjB 9pLbYdWmLqZoouPN0tUWIyM 6ovtEGpUGBnYGRyZ5cwElLd lN6hqRerSViiugYqIJCexm0 0k6qckYTiKPPclVZhDxFhFA MzJRPqv8diMEBpsHJcSkPhC zNcZnRuYmpcdWMxXGRlZmYw y1dhq098nVWad1bmHHHjKyJ 8aNKwAITjS39hHMXIC809RV TmCTygj3vrw1OkLYUpyHYfc 1G5IIJRGJdaYDSMCGs6wUve X22dr1G4JceuJ7imNPUpFOU pZ7VxIA7yXKVzCsl9XDT0YP X5HJPqONOaT9OqBM7aMDQmc PCwXBo7j2vbsUxmWTVcMHL1 w4mmLRroifLjYS5nux9byNo 7v0udvoTjODAvOTDhrDXXQV ZzX3DqmGmrGx9awAt3rPelV bgwHHE2Cvl3KV9ytv51llx9 sNteQLZeflmiWhD1YMmjLQF pvqucIHp7YUphVMUojKJ0YC wqVHFecbA2JFhkJHSdfXR5X NcrOOOqGjD0KIoaPOKuAXL9 DfEfAPLgy0HahgcxQyQqar8 nqa46INL5z7IcjGuhFWR9QK O6IxJgSf1sxXEpJSAoGD0cQ yYelQRsSOPihx35dHkmOEgm enFdkB4tLeAlFAJvyFOnOSW nNR0akANhKLRyiK5vpenmNL BnYnJkcmhlYWRccGdicmRyZ b0zwKklZHB9ZNybE5gwiZ6m UqY1WKokI3eqyB4zSSt2ZHj dwEW4YKJfxT0nNI7ojtgjg2 qpKkYiCP4pwvdyk4rgShMwV S6unti3j3wgZzLaKN2efszf g8upOfNcNTpkTNUzsjgaDmU qAr2auHFryRG2WMzpFmptFJ dlXHBnbmNvbnRccGduZGVjX HBsYWluXHBsYWluXGYwXGZz QbCjcLhzaMlpfX9pSfDlImU mHTqeEJ9wWJGsV3bgbCDpQF XzBBOjI1zhKtAdwQ0dcXfyB RlbxgLuVAE7FXOgDRKinSra ABR0lcMff61egUeuctJjFWT vcnQsIHRoZSBpbmRpdmlkdW VoUV5bEZiwe1GzITzud8MfX CBhcyBtYWtpbmcgdGhlIEZp kfNuAEhynIAnkUSanCN6qK5 mR0CdCRvvf6PkocScZHV5kQ UvZFHepLqhjEI6nTW8DQnco pNtsiV4pZX5ALFlvFpcvsJn YXNlLiBccGFyfX0= [facility] Work Phone: Laboratory comment [facility] (Report) u1lpgSEsMNMuhTZqScMcTYM mHREwz0nxAWIszUGfKsCrSy NcZnRuYmpcdWMxXGRlZmYwe 8tws376aSKjp3hjOOMuYdQ9 oCNuNBAqY42oIWPSM178CBP uZIise5csw7XwDKVvyETmu3 P3QADNEFfwQDNLCSr9oDuiD 49wn2J1ZnptL0feEEJoUZHz U2PoKC9kYWElDfv1RLG9RFG 1WQIaXWSrK7HbKY5oSZSuuJ YqUEb9p1ltrDhoOZCcTPN6m 5ncWBrbfbOzGK2rvr2cpWv9 v5cztaQjJOOvDHNqbKSOSFN yE9VmiMfyDg6ylBd1oNdySd zfYYZ9Sfv5FS6hue14zur4n JbwLBOowyxaHoM1ALpeFSCn wkzaYMg0PGmnOWZboDS4JGZ rfHFxZ7UsFDMmSC7mrgb2TE W2SUsiKBHwYaX6PWBpvKKoQ AWoxAqsTJzik054HXQ6SvZl TK6uX6Gfa2Y3tB5jeMSgPNP poRPzJaUfYFSgwu1lwEEtMC brf9PyMKU7dbZ6jJHznYReV RMqPK57Meccj2GcOwvkURK1 NDWninCho9Fac0rcLtFwkrY zX2cwK4UnJNDmNUSxHKQzBd BtgeOmm3Umu6VcsKBdzVi8v 1cnPBMiCNPbfLpdt3pqOYN9 HITgW5D4lSSpm6tpMZtmVNC ikUN2baI8YJPmfYDhI3WeyF 7nKMFuUK1boso3o6lvHDQ4I YtkJDOuGmN5tqQ4GZJdkMWl DYIqhKspYWlts921UOF8FdM cUFFne2UgE8RfpJvoN97anR hrD87oQFPprTkpbE2lpSsvo G0dJdJxPaCuRGmjSIYzJYZh YWluXGYxXGZzMjBcbGFuZzE wMzNcaGljaFxmMVxkYmNoXG McUCfcE4oaClUtDhDuISCVY UxTbQegFHZjD33waONxCh6o RhewZ6meLHubWVGwRUAgEIm ENTMdG5BrmW2oUkxPCeFTwP luUHJlcAlccGFyIEExLTIJR 01TIFBDUAlccGFyIEExLTMJ ND8OWOPVUEOCYGblU9KUJF4 JXHBsYWluXGYxXGZzMjJcbG FuZzEwMzNcaGljaFxmMVxkY zLqUYEfJBtnY1urZzVmHyQi MlxwYXJ9 [facility] Work Phone: Pathology report Cancer Narrative Non-gynecologic Cytology Case: [id number] Authorizing Provider: Dick Nguyen MD Collected: 09/24/2024 0837 Ordering Location: [facility] Received: 09/24/2024 1637 Center Pathologist: Lyudmila Valentin MD Specimen: BRONCHO-ALVEOLAR LAVAGE OF RIGHT MIDDLE LOBE, BAL RML [facility] Work Phone: Pathology report final diagnosis Narrative n4aztBGtFIQynLCmSYYgPOd gngPmFHMtxAOaL0IizovyOE viSG8dOG1vrAhbtCEvgOWeK QGsYtIbx4rgc076uNSmg6xi AXIIplfrhNf9j1gvWXNAUVg nDHQXLTz2jJzyM33qq5W3Ip kzR2slBNGnDVfrbmCpbwN6Q XEfmXPtELl2OMQmxFRsdrMm GsQsJFTmrPXvrQB8BEWcAO7 ogvumNPnrXDztMFIxscK6DG WsaUGhD5XgDIVuWT4dvbjaE DE8XStoFQBlZCL6ZiKmUSXj b6Voeth1ByNomOx6c9wmUTO pUHNwyZnlf8bfJDA4JFMqxF PaP5cduD2fMZSoBP5lpefcf 9yqSUjuZTjxLQRqfBJ1dmM3 DUOgdEIxA8GynS1pAOHoMDE ijtIwxAwghW7gQsSlMlQzFE ptBdIwlZCpEDUzONHNI74WO Z0qACkDOK3OYGCoJMXKZSeK UY8NVFNYC1oPKR5WTOOPFFH NK4TYNKSFMBlgUq3LPIXwqo m9GUJqfFMdMBXbWlicDJFbH mo8EHYpPlAwP5LcZM0fVI6o bGlnbmFudCBjZWxscyBvciB 0nNVwcPIgsmWzzOAby09eZU FyZSBpZGVudGlmaWVkXHBhc iAgICAgICAgICAgICAgTnVt BQKwyBHinZBvaj4rkAVrTMA spYNat8XmlHbwBIAgR9YcHB TnCdngIjTlP29QDQY9IUdlO VmlHJ2aW7U1gLLxLAPnloWf lxpynavqeYP1GSH9drkilGR egoSqqC4kxN3aH0ikkKxoUY 5fX1BmgXRpgy3szZKtAJIup lxjZjFccGFyXHRhYlxwYXJc dGFiXHBhcn0= [facility] Work Phone: Pathology report gross observation Narrative k5gyuZUxYRWpuHPIPWJeVKI nLQ5dvDnalIm5tMqsZBJgzq Z8kFBcPJjjx0ssREN9d3lkc jPBAncbWIEtRG6mBKrwXJPa NP1eZoHbLDEjJlNiCFEynYH uwpHmHiRqWXQykINkbDK7ZD LkCK2ffmhpOCwaMYxrJCNtl iU7EHZsdDPoX8GpWNZrVX5j jtdbTCB1ULXRHhnjSy9chTH ibCANCntcZjFcZmNoYXJzZX ReMCSux1yrswGNphnrpMm2B Uf4RTVgYMLwhCDgr1O7XMfv k7dcq6DvQ3Eeb2RgTHi3iU6 IVmclMWM6NJSYZozuFqsbzK vkk7GbtBErTOQbASjfiFGwH TEwMDAgXFxkYiBPVlIgIiAy LQV0KKZ6ZEOjFGm6SIzvWpD IXHV0CPA3VsfuHSc0NNknCQ xuaCBcXHQgMSBcXGZsIFxcb pM0h9awXZEntXYoMJM5MJuk w2uiYSvdBZV8TOAaKqFcJTS rSP7IHwKdIWC5FTA6YQV3Hs S6VMg4HRCVFlSxJvKfZsLwW JnaInNjUDe4XEj3TEjISxOe PrWqOlM7KwWqZVN7LSM9ATs ojVTaJCppo7MkAgEhAKGoOG jduqD3OQKvgrClBTnlqTyji Q0dFaLvXlWwQEOYVdGMVp6N Y6hBLYIFCiRYAAQIKTfEUjZ HRSBPRiBSSUdIVCBNSURETE MiJW9GAA2axDalbP9vvEBmG 2hcZnMyMlxwYXIgDQpccGFy ZCANClxwbGFpblxsdHJjaFx dnzYsUJRwtCVSSMM2LV2tMM ANClxsdHJwYXIgDQpcZnMyM CBSZWNlaXZlZCAxMCBtbCBc jYAnrYYuuJmwEeqorFJ7RZt zXzqlwM2dsAHMGVTKQgsVCv krjdUkBF2CMHHRTqAOQP06K fXyZFC3EPjckRltHevufjUk yOVlRuBBvO7ku7avnaaew1S 0SREhEVnbc2pzUUTwXSbnl4 NhRZsYSLVKPL8KNI7jaDZ5B LoFQYXWRUqnKZIuB2gdbTW2 s2vyfCAxm3y2VUmdSZP0qSz wbGFpblxsdHJjaFxmczIwIC PouRGkkTZqbOrlDpjmlVP0C XktVjqxeW9jcRZOKRYORsnT CbfffqSqPF3ZFJKDIjMOZQ2 3GaSxGMX6XbglmVyyEertoz CuuTJdWpUKxT4tjF59LVv7V MTbUUxeo3puINOyAVbcl7Nu XCeHNNTRYD7ULS0srVL4BLm HUEZBSNvqOYAkHNhfxWE1q8 cmgOVrw9f6AHkhANY5pScvv GFpblxsdHJjaFxmczIwICBm bHVpZCBccHJvdGVjdHtcZml reRI6LExiZuiilM9pkYSBUH CCMpmAZvybccOdDU4WHLRGR aGGMY11GeYrCJL7N7mwxSix SdutozWytYMnZuLBtH00qXE iv3bhsUKdJRjsOynsyVSlvu D9WDmJCBVBJTnTRhPlSH1lW PhDC7RZXfU6UyAfYVO1Z5vc fXtcZmxkcnNsdCBcJzFDfX1 foWvzsN8ybUUpK0ytTkUhKH FvlVXqkCvdiDPiHWyrSBB7H SPksUChDMIvc2SrJ8B6QPAj WNbbq1icVPJjTNbql2PjPRi SGNAJKH6AJW4lfIJ2BUaNHA HGQ7oWwWV9WpqtbCY4LO41X IZnMUYykIPxRJfrI514M8Gb a4rwwGJtBYixImhpoYWrqpU 7KKlIFBQPLGaZAjMdGE3tYU mTZ4KNVpQ7VmH4RWN2IHl6o WiiKugwtlWunPLaIyLDcN1j cLguyW3dbSZoQ5qvGqRqRKI aQfKbyCAkEU3ZRSJkAiUaGK UvL0xlOLDvDQ4XMRJuVJyii dMvCCCjA35we5YZq8Igj7lf iXccm7VarVGjMD39YVOxoWM cNBD9LJ4rdPeeGZZeDIyhmU FyZCANClxwbGFpbiANCn0= [facility] Work Phone: Resident Review a5xkqWEuZIMdeDJaGYDq MVx pbuSzEHNzmHGoU7AnwqtxXV ohBE3iKS1clLpctSEefIWwH RPuQsKlg2cft624nXRoa2mf IWOKygsirQp5cDdfG56dk4O 0JuhwO25gfRYgHKL0XWQrCQ BtfNVzRFMnRLA9OTKbfPDiE 4adQAOkKY7eoqvfKObuZYpi HHLicIP8ZVJmgSNoQ6ZqCGP iZOliJXSpfdl6UyMlNv3hzY VyeTcyMFxwYXJkXHBsYWluX WKuBlRhEKnoPYzyl7ArPCNf UY9zmiDdjAMmg6Wrf2GmCpD rxY1vwJ4gqiX6HFYgOPFtnz rxy3OoOXpcHIGmbty5biU8h X0bDVwshZknbCP4rX7ng5u6 JHFfj1fsTJ20JSYVqBCsakj zABldZR3PIjumMDYvfHSyWL xwYXJ9 [facility] Work Phone: [facility] Work Phone: Pathologist review [place] (Unsp spec) [Interp]Ordered By: Cat Gunter on 09-25-2024 Pathologist Review-Cell Count, Fluid Predominantly macrophages with some foamy and hemosiderin-laden forms. [facility] Work Phone: Comment on above: Electronically taurus d out by Cat Gunter MD on 09/25/24 at 10:24 AM. By the signature on this report, the individual or group listed as making the Final Interpretation/Diagnosis certifies that they have reviewed this case. [facility] Work Phone: Surgical pathology studyOrde red By: Sanchez Hernandez on 09-25-2024 Laboratory comment [place] (Report) i8kvkUWnGURyh2mrIRXboYQ uZzEwMzNcZnRuYmpcdWMxIH kohcAjVKqiw9ViV2GjFiKdF FxhbnNpXGRlZmxhbmcxMDMz UXO9fyMbJPFvYVprOQHyUFq bTt6viHOjtAlyXiDfNMQun3 nscfBGFFzkDYNZDUa8c4ibT ROgXzN4sBMrNSjjD0awryEa lADsV9Azf7WzAQo0aX78EYU ftG2fxVOeGKyhifMbNoT8QN jhOOGoMrR4ZQFltSGfGRLrC 1xyZWQwXGdyZWVuMFxibHVl ADN3fGxia8F0wBHhlPKtiGm sXsQcNyTnJfULo1YbVBp6vF ggW6PnYKDbEcD9eMKfKYEuI VchIYHhWXKpuuF4tB58ZSjz cvC1fYHmd8Ozw10es684pF8 inDNhZIB0DNVaVTQhrZVuAG LpVYM6SVAriBDbV5arRzNao GArY2LsAiYtyJCfO7YhYfDn oBFpZ0OrRnManRIdKMHbiYQ 3FPoge799YIR3DrPoFQ6hF1 Lml2B5vR7haXGyBUOswGJdG gCkXHRyoe2tvNQoAPayv1Jh VSG7svS6oUTzyZJpMIIgIR8 4Nbzrt5JxNdqmZNJ2PHBwkk Rfh9Lny2tvBmZfxyUvE3ngL 2JyZHJoZWFkXHBnYnJkcmZv p9Sry2AxtGNjvFg7j0lwDAO aFQYbgDgjh7stFMV0YERbE6 L2iXSyo5evWMfpGBCkcKY2t iQ9MGrtSDBbgiW5tlG6AJcn DFDbtOS4hvL7OSodVRYpNjX 8mwR2LGpvCHJyPYU2StPeXU Kik3WhiryyUgAom6DpgRCgQ WhiH42hq291GCBeafVbH6kh bGFpblxwbGFpblxmMFxmczI 0XHFsXHBsYWluXGYxXGZzMj BcbGFuZzEwMzNcaGljaFxmM KojDgByFFZbKBicH2boAdUw FqDhHQLJmXJ3gZNck4ygozN 3qEUaRK9kJMTchVIekhIlf5 F3LNZ5xKEumE9vcVYtIJDiw IXdpmFqom39wNPwnQI3NMPq IBDgpNMvtW6eODMsGTMCrD2 hbCBJbnRlcnByZXRhdGlvbi 6TyKQjmc8ndNElQ8LbfDrjz WVzIHRoYXQgdGhleSBoYXZl IANadehyf4HhSJOszFTnN5X tTB2rYEBuvd52 [facility] Work Phone: Pathology report Cancer Narrative Surgical Pathology Case: [id number] Authorizing Provider: Dick Nguyen MD Collected: 09/24/2024 0817 Ordering Location: [facility] Received: 09/24/2024 1142 Center Pathologist: Sanchez Hernandez MD Specimen: TRANSBRONCHIAL BIOPSY, Right Lung Cryo TBBX [facility] Work Phone: Pathology report comments [Interpretation] Narrative m4vdoBBiFEThyUGpWHRaEJs ckfAvUNMxlKZaU6IzirsnHB hnTZ7hZM6cxRzxzJPmzYXoT BEbFkCsl1awy496pYVji0pj SBFJiubuoWy8tApgH54nw2K 3RngpM45ofVXiFIS1OPWmII VxrWPnBEDwMPO6SLEidRCeX 6ykXWObFV5alyqfNYvtGCiw GKUmeMJ6CAEnaCBgD9EqQIM vZOftKOZuhll6ZjBjLv6vhS VyeTcyMFxwYXJkXHBsYWluX DCyUxOyYKzbNRDwd5AqfKBi z70pzFX4xbYeGwB1hSYiPTD qwxOugRKliLPdw6RrEPi7RY 0dJJLgYNHejE2aOLMowbHuV 4s8hXKln4ebr9vzIuK1YB9g f9SigMl4SMfzqNEng0vfalX cmJEfgU46YORpwIy8gQWcWF KjXN9uXXOhNQB2qfEiuaMad WVudHMgZGlzcGxheSByZWxh mBz0AHb3HIEtSLIvxmXhKQB cwoUglPCsJ9Q5vrNaGQeweK trKQ5xITCcoyXuhZTymJUip NztGix4afSctsIycpQ8yPEs RAmcPbndam3klPTbd8l0mVI saDT1iUSmunWxn0GltTwjSo LdQlW1jQFbnHHsUuBtPCSxg fDtbA9kZvTAUEMzDOZgNHQi SVRtwvQnlz6aeaoiXh4rLZR aLjQqYbyll6AuSdUpt4WzLO FyZSBpZGVudGlmaWVkLCBhb dPtfKmnTETzJFIso8Q8tMQq IVGgyX2eb7DtPBNwVNVxRHI 7bOPhWVIgTK2xJVBfSYNnZZ NlIGZpbmRpbmdzIHJhaXNlI NRewvIoxd4sQu5jVHYzK7qx j26bNfRspBKgc2JymzpnaL6 4GTUltVz9jXNtCWIlQRLoa6 7iNUN0yWYcYAWdLLA1afHaJ JJ9G7cxg4QjchIjj2JaxSV3 RTiffM17MGWqoDz9sXRaKQS qHUVxc24fHUEqDSeNJO2uFi GgyE6gc7roMaLwi7OwXJpln MivxjJlzkEyRFZieH4aykAj HYB9qrCbr5Ysz2VbaCgrXIE 4dGVudCBhbmQgZGlzdHJpYn C4jD3cAV9dAKYaGWHoLTKvP P7pHVKhMt1fPUY8gqUlWWBl R3ewbsSxeOQapNhvlVekvs7 ccGFyfQ== [facility] Work Phone: Pathology report final diagnosis Narrative e1mfiMUhTSFrpJRpIAFsCKi dhlHfNHGfqBQoV5DkyownWI lsAC8wSN7vxOwkeVBicRQrB WFaCpDvb3lgz971oPBra3ki UPXNjkrptAr0pWidW76wy8F 2GdsiM0jmBVGvCSbtFSAgEB sseSZlSLr7EZYrbRNpiqVwM eTeSCYqyHKjyCZ6ETGgBC9r ihfsTDysXTulQBPtqzI2STY tfJStV2VeOFSiHA3yyyizST Y7HTpuGHEgLZM5KyWzMZUfw 6Talqn1AbJptLi6a9ngOXWz FKTmiHdam2nwPAJ1FZSjtFT kZ2wvfW8lWPNuPM3naymls9 eoDKfuHStkRJIyxIH7hdM7K ZPhsLQpP3KlsE7tSRXbQUZg fkVjaIzbaB3vWeglkhEuKSK dRAsPJrwiOAXFO7pKRgAOUK 6AZ6m8ZBEnZKAxF0KyDAZfO RysVHFpQO8uYVSoDvRnMPTy vaXusQ9eRKksfReuSz1mIFb scQ50HIMiuDq9bQZuWNCuYw Ggm1rzTIRlKHSinDD5mBOhq zCzt6QvlMukNl8xN2JpKYYu cD8jieYkgEHwiA== [facility] Work Phone: Pathology report gross observation Narrative x4lhvODzRUHajDCZVNUkPGE tEJ6onZgqgHc0jZzfGMWngo F7gCHoDBlop1uxXFF4s7fvm nPDNjvvZBLoBO3vWLfiMOCb BB5jXgYfOQFvDmGsTXLffSQ fuiFwUpWmBFRddXAfeND0IR OlTG6xkfnaQBmxVWlqITBbj kU5WZXaoGUfW6WcWSTnAO7v mqvtIFT0TLJWOxjkVo7xeRS ibCANCntcZjFcZmNoYXJzZX TeMMUry2jnulCCXOxaLIRWJ Qf6YKs1MCUmKEKspOLrs9A1 IZttz9yku2KeLNMrXEx9rE2 RYinfBUI0VUWVJeauNivoyF tjr7SuzCVyXTSgQHpwlBEeM TEwMDAgXFxkYiBPVlIgIiAy RHLbRPYdBXMfBTj0QDdjZkD MFAP3LQA8EmQqRSe4LWyaVV xuaCBcXHQgMSBcXGZsIFxcb qG0w0nuILXjePOkPAJ4FBed j2okUPtdOJM7ECSsQdMnYRF mFC9JOfFlLUT7ISD1ZSHzPn U7KAr9YRHUVzDlMpHuVhUpA ArqKoOqHWo6ALl6EQkRQmLt WcYaAHHiXNF7HSR4ADF4IUr ovsavYIf9EOXkMOpbdsZeAM jyQbrpULwwI74lpNHvYNKCO lxwbGFpblxlcGljTmVzdERv PxYoNRidfWYpuIElSG9WDPd 0cmNoXGYyXGZzMjAgQTogUm MjRHy7BLNolL1oVt1fmEOmf U6qMWxkUtIpFMCtw7g3aIJ0 nZSstMM7lPJanSecBpUwWN4 ohZKcSD0hLElto0UanNZlUX 92jPQoouVijnBoKhJwN3r0W Cp2xwgeO6O1lcYKNpWLYjzy YSWjNS31eYLlhXdrMQFzrkk ye0znfXHwJPSsGcHgmSsaz7 LaQIVlRTvlKH12xzRrS6vgG GzmfNvdUnJ4ccHfWvydlICm OzAvhBBtZqFlE74mHYNrHQO pcBLwqC3ekoOdzaTbpYCucZ Z2ZFTzsS6vxZ26ejOppgGre gQeY6Dno2T3sLRdQMRbsjPX MkYRQnzdBBLoHTsqo5GvHNw lcGljWHNhMzAgDQogDQpcZX WlS11ff7FCj1Mtw2mzfPpgu 8HapYXlTH28YHNqeIQcZKO2 EY3gyTupDKMxJVujsROdTCB NClxwbGFpbiANCn0= [facility] Work Phone: [facility] Work Phone: ASPERGILLUS GALACTOMANNAN EI A (NON-BLOOD SPECIMEN)on 09-24-2024 Galactomannan Ag IA Qn 0.027 Normal <0.500 Un [facility] Comment on above: Result Comment: Inte rpretation: [...] Aspergillus Galactomannan EIA is a product of [employer] and is FDA approved for in vitro diagnostic use. Testing Performed at: [facility] [address] [place] [address], [address] [place] [address] Business Intelligence Administrator: José Harris, PhD BHAVNA (ABB) CLIA # [id number] FLAG Interpretation: A = Abnormal, H = High, L = Low Performed By: #### A SPQN ####[facility] ([id number])[address] [place] [address] BASIC METABOLIC PANEL WITH A NION GAPon 09-24-2024 Calcium [Mass/Vol] 8.7 mg/dL Normal 8.6-10.3 [facility] Comment on above: Order Comment: FASTI NG:NO FASTING: NO Performed By: #### 2 27, 4418, 4420, 79100, 809, 78650, 374 #### [facility] [address], [address] [place] [address] Statistical Engineer: Octavio Segovia MD #### [phone], [phone] #### [facility], [address] [place] [address] Statistical Engineer: Alejandra Queen MD,PhD,FADIA #### [id number] #### [facility]/[address] [place], [place] Statistical Engineer: Waldemar Billy M.D.,PhD Chloride [Moles/Vol] 102 mmol/L Normal 98-110 [facility] Comment on above: Order Comment: FASTI NG:NO FASTING: NO Performed By: #### 2 27, 4418, 4420, 90388, 809, 91700, 374 #### [facility] [address], [address] [place] [address] Statistical Engineer: Octavio Segovia MD #### [phone], [phone] #### [facility], [address] [place] [address] Statistical Engineer: Alejandra Queen MD,PhD,FADIA #### [id number] #### [facility]/[address] [place] Statistical Engineer: Waldemar Billy M.D.,PhD CO2 [Moles/Vol] 20 mmol/L Normal 20-32 [facility] Comment on above: Order Comment: FASTI NG:NO FASTING: NO Performed By: #### 2 27, 4418, 4420, 16751, 809, 30416, 374 #### [facility] [address], [address] [place] [address] Statistical Engineer: Octavio Segovia MD #### [phone], [id number] #### [facility], [address] [place] Statistical Engineer: Alejandra Queen MD,PhD,FADIA #### [id number] #### [facility] [address] [place], [place] Statistical Engineer: Waldemar Billy M.D.,PhD Creatinine [Mass/Vol] 1.49 mg/dL High 0.70-1.35 [facility] Comment on above: Order Comment: FASTI NG:NO FASTING: NO Performed By: #### 2 27, 4418, 4420, 02405, 809, 85455, 374 #### [facility] [address], [address] [place] [address] Statistical Engineer: Octavio Segovia MD #### [phone], [phone] #### [facility], [address] [place] Statistical Engineer: Alejandra Queen MD,PhD,FADIA #### [id number] #### [facility] [address] [place], [place] Statistical Engineer: Waldemar Billy M.D.,PhD ELECTROLYTE BALANCE 14 mmol/L (calc) Normal 7-17 [facility] Comment on above: Order Comment: FASTI NG:NO FASTING: NO Performed By: #### 2 27, 4418, 4420, 72190, 809, 45554, 374 #### [facility] [place] [address] [facility], [address] [place] [address] Statistical Engineer: Octavio Segovia MD #### [phone], [phone] #### [facility], [address] [place] [address] Statistical Engineer: Alejandra Queen MD,PhD,FADIA #### [id number] #### [facility] [address] [facility] [place], [place] Statistical Engineer: Waldemar Billy M.D.,PhD GFR/1.73 sq M.predicted among non-blacks MDRD (S/P/Bld) [Vol rate/Area] 53 mL/min/{1.73_m2} Low > OR = 60 [facility] Comment on above: Order Comment: FASTI NG:NO FASTING: NO Performed By: #### 2 27, 4418, 4420, 98191, 809, 91986, 374 #### [facility] [address], [address] [place] [address] Statistical Engineer: Octavio Segovia MD #### 27011, 29212 #### [facility]/[address] [address] Statistical Engineer: Alejandra Queen MD,PhD,FADIA #### [phone] #### [facility] [place], [place] Statistical Engineer: Waldemar Billy M.D.,PhD Glucose [Mass/Vol] 304 mg/dL High 65-99 [facility] Comment on above: Order Comment: FASTI NG:NO FASTING: NO Result Comment: Fasting reference interval For someone without known diabetes, a glucose value >125 mg/dL indicates that they may have diabetes and this should be confirmed with a follow-up test. Performed By: #### 2 27, 4418, 4420, 83233, 809, 67453, 374 #### [facility] [address], [address] [place] [address] Statistical Engineer: Octavio Segovia MD #### [phone], 26634 #### [facility], [address] [place], [place] [address] Statistical Engineer: Alejandra Queen MD,PhD,FADIA #### [id number] #### [facility]/[address] [place], [place] Statistical Engineer: Waldemar Billy M.D.,PhD Potassium [Moles/Vol] 4.8 mmol/L Normal 3.5-5.3 [facility] st Diagn[facility] Comment on above: Order Comment: FASTI NG:NO FASTING: NO Performed By: #### 2 27, 4418, 4420, 79313, 809, 02942, 374 #### [facility] [place] [address], [address] [place], [place] [address] Statistical Engineer: Octavio Segovia MD #### [id number], 41025 #### [facility]/[place] [address] Statistical Engineer: Alejandra Queen MD,PhD,FADIA #### [phone] #### [facility]/[address] [place], [place] Statistical Engineer: Waldemar Billy M.D.,PhD Sodium [Moles/Vol] 136 mmol/L Normal 135-146 [facility] Comment on above: Order Comment: FASTI NG:NO FASTING: NO Performed By: #### 2 27, 4418, 4420, 24376, 809, 34102, 374 #### [facility] [address], [address] [place] [address] Statistical Engineer: Octavio Segovia MD #### [phone], 26484 #### [facility], [address] [place] Statistical Engineer: Alejandra Queen MD,PhD,FADIA #### [phone] #### [facility]/[address] [place] Statistical Engineer: Waldemar Billy M.D.,PhD Urea nitrogen [Mass/Vol] 36 mg/dL [facility] 10-23 [facility] Comment on above: Order Comment: FASTI NG:NO FASTING: NO Performed By: #### 2 27, 4418, 4420, 28202, 809, 52148, 374 #### [facility] [address], [address] [place] [address] Statistical Engineer: Octavio Segovia MD #### [phone], [phone] #### [facility], [facility] [place] Statistical Engineer: Alejandra Queen MD,PhD,FADIA #### [phone] #### [facility] [address] [place], [place] Statistical Engineer: Waldemar Billy M.D.,PhD Urea nitrogen/Creatinine [Mass ratio] 24 mg/mg [facility] 09-20 [facility] Comment on above: Order Comment: FASTI NG:NO FASTING: NO Performed By: #### 2 27, 4418, 4420, 64844, 809, 82053, 374 #### [facility] [address], [address] [place], [place] [address] Statistical Engineer: Octavio Segovia MD #### [phone], 06682 #### [facility], [address] [place] Statistical Engineer: Alejandra Queen MD,PhD,FADIA #### [id number] #### [facility]/[place] [id number] [facility] [address] [place], [place] Statistical Engineer: Waldemar Billy M.D.,PhD BRONCHOSCOPYon 09-24-2024 BRONCHOSCOPY Table formatting fro m the original result was not included. Images from the original result were not included. Bronchoscopy Operative Report [facility] Date of procedure: 09/24/24 Patient: Krunal [...] INDICATION: Obtain diagnosis BRONCHOSCOPIST: Dick Nguyen MD Process Control Technician: Maeve Pringle MD PROCEDURES PERFORMED: Flexible Bronchoscopy Cryo Transbronchial Biopsy using 1.7 cryoprobe 7 Micronesian Osmani renuka placement in RLL and RML BAL RML Events Procedure Events Event Event Time ENDO SCOPE IN TIME 09/24/2024 8:05 AM ENDO SCOPE OUT TIME 09/24/2024 8:40 AM POST-PROCEDURE DIAGNOSIS: Interstitial Lung Disease ANESTHESIA: GETA. See separate anesthesia provider documentation. This procedure was performed using standard monitoring procedures in [facility]. Medications See Anesthesia Record. Details [...] bronchoscopy was performed via ETT. A 7 samoan renuka was placed outside of the ETT [...] cryo transbronchial biopies and placement of 7 samoan renuka. The procedure required more time than usual to perform. After diagnostic/therapeutic maneuvers, the airway was examined for evidence of bleeding. None was noted. The bronchoscope was removed from the patient's airway and the airway was handed back over to my colleagues from anesthesiology. SPECIMENS: ID Type Source Karly (more content not included)... Normal [facility] Comment on above: Order Comment: [facility] hoscopy Scheduling Request Pre-bronchoscopy visit: Not needed with Dr Padron Please schedule procedure: After September 11, 2024 Cytology on-site: No Location: [facility] Performing physician: Dick Nguyen MD or interventional pulm (cryo ILD biopsies) Referring physician: Rosalino Padron MD, Radha Khan MD Indication: undifferentiated ILD Sedation / Anesthesia: GA Procedure: Airway exam, BAL, TBBx, Rigid, 7 samoan renuka with rigid, if too hypoxic then 8.5/9 ETT with 5 samoan renuka Time: Tier 2 Fluorscopy: Yes Imaging [...] 09/26/2024840 Result Status: Final result Resulting Lab: [facility] [address] [place] [address] CULTURE No growth aerobically and anaerobically STAIN (2+) Few Polymorphonuclear leukocytes No organisms seen Normal [facility] Comment on above: Performed By: #### 3 2355-0 #### MICHAEL Ho ([id number]) [facility] ([facility]) [address] [place] [address] Bronchoscopy studyon 025 Addendum by Dick Davis am, MD on 09/24/2024 9:35 AM EDT Table formatting from the original result was not included. Images from the original result were not included. Bronchoscopy Operative Report [facility] Date of procedure: 09/24/24 Patient: Krunal [...] INDICATION: Obtain diagnosis BRONCHOSCOPIST: Dick Nguyen MD Process Control Technician: Maeve Pringle MD PROCEDURES PERFORMED: Flexible Bronchoscopy Cryo Transbronchial Biopsy using 1.7 cryoprobe 7 Micronesian Osmani renuka placement in RLL and RML BAL RML Events Procedure Events Event Event Time ENDO SCOPE IN TIME 09/24/2024 8:05 AM ENDO SCOPE OUT TIME 09/24/2024 8:40 AM POST-PROCEDURE DIAGNOSIS: Interstitial Lung Disease ANESTHESIA: GETA. See separate anesthesia provider documentation. This procedure was performed using standard monitoring procedures in [facility]. Medications See Anesthesia Record. Details [...] bronchoscopy was performed via ETT. A 7 samoan renuka was placed outside of the ETT [...] cryo transbronchial biopies and placement of 7 samoan renuka. The procedure required more time than usual to perform. After diagnostic/therapeutic maneuvers, the airway (more content not included)... [facility] Work Phone: [facility] Work Phone: Radiology Study observation (narrative) [facility] Work Phone: CBC (H/H, RBC, INDICES, WBC, PLT)on 09-24-2024 Erythrocyte distribution width (RBC) [Ratio] 16.0 % High 11.0-15.0 [facility] Comment on above: Performed By: #### 2 27, 4418, 4420, 87117, 809, 26140, 374 #### [facility] [place] [address] Statistical Engineer: Octavio Segovia MD #### 54082, 26658 #### [facility], [address] [place] [address] Statistical Engineer: Alejandra Queen MD,PhD,FADIA #### [phone] #### [facility]/[address] [place], [place] Statistical Engineer: Waldemar Billy M.D.,PhD Hematocrit (Bld) [Volume fraction] 33.0 % Low 38.5-50.0 [facility] Comment on above: Performed By: #### 2 27, 4418, 4420, 14898, 809, 50884, 374 #### [place] [address] Statistical Engineer: Octavio Segovia MD #### [phone], 66014 #### [facility], [address] [place] [address] Statistical Engineer: Alejandra Queen MD,PhD,FADIA #### 53654 #### [facility]/[address] [place], [place] Statistical Engineer: Waldemar Billy M.D.,PhD Hemoglobin (Bld) [Mass/Vol] 9.4 g/dL Low 13.2-17.1 [facility] Comment on above: Performed By: #### 2 27, 4418, 4420, 63671, 809, 44169, 374 #### [facility] of [address], [address] [place] [address] Statistical Engineer: Octavio Segovia MD #### [phone], 76567 #### [facility]/[place] [address] Statistical Engineer: Alejandra Queen MD,PhD,FADIA #### [id number] #### [facility]/[address] [place], [place] Statistical Engineer: Waldemar Billy M.D.,PhD MCH (RBC) [Entitic mass] 23.4 pg Low 27.0-33.0 [facility] Comment on above: Performed By: #### 2 , 7838, 4420, 87524, 809, 95936, 374 #### [facility] [address], [address] [place] [address] Statistical Engineer: Octavio Segovia MD #### 65518, 58200 #### [facility]/[place] [address] Statistical Engineer: Alejandra Queen MD,PhD,FADIA #### [phone] #### [facility]/[address] [place], [place] Statistical Engineer: Waldemar Billy M.D.,PhD MCHC (RBC) [Mass/Vol] 28.5 [...] clinical condition. Performed By: #### 2 , 4418, 4420, 40330, 809, 55556, 374 #### [facility] [address], [address] [place], [place] [address] Statistical Engineer: Octavio Segovia MD #### 45089, 04813 #### [facility], [address] [place] Statistical Engineer: Alejandra Queen MD,PhD,FADIA #### 54477 #### [facility]/[place] [address] [facility] [address] [place], [place] Statistical Engineer: Waldemar Billy M.D.,PhD MCV (RBC) [Entitic vol] 82.1 fL Normal 80.0-100.0 [facility] Comment on above: Performed By: #### 2 27, 4418, 4420, 38533, 809, 34142, 374 #### [facility] [address], [address] [place] [address] Statistical Engineer: Octavio Segovia MD #### 61841, 59686 #### [facility], [address] [place] Statistical Engineer: Alejandra Queen MD,PhD,FADIA #### [id number] #### [facility]/[place] [address] [facility] [address] [place], [place] Statistical Engineer: Waldemar Billy M.D.,PhD Platelet mean volume (Bld) [Entitic vol] 10.4 fL Normal 7.5-12.5 [facility] Comment on above: Performed By: #### 2 27, 4418, 4420, 06038, 809, 68319, 374 #### [facility] [address] , [address] [place] [address] Statistical Engineer: Octavio Segovia MD #### [phone], 50888 #### [facility], [address] [place] Statistical Engineer: Alejandra Queen MD,PhD,FADIA #### [phone] #### [facility]/[place] [address] [facility] [address] [place], [place] Statistical Engineer: Waldemar Billy M.D.,PhD Platelets (d) [#/Vol] 259 10*3/uL Normal 140-400 [facility] Comment on above: Performed By: #### 2 27, 4418, 4420, 80983, 809, 73959, 374 #### [facility] of [address], [address] [place] [address] Statistical Engineer: Octavio Segovia MD #### 97094, 45215 #### [facility], [address] [place] [address] Statistical Engineer: Alejandra Queen MD,PhD,FADIA #### [phone] #### [facility]/[address] [place], [place] Statistical Engineer: Waldemar Billy M.D.,PhD RBC (d) [#/Vol] 4.02 10*6/uL Low 4.20-5.80 [facility] Comment on above: Performed By: #### 2 27, 4418, 4420, 36668, 809, 15516, 374 #### [facility] of [address], [address] [place] [address] Statistical Engineer: Octavio Segovia MD #### 72526, 32655 #### [facility], [address] [place] [address] Statistical Engineer: Alejandra Queen MD,PhD,FADIA #### [id number] #### [facility]/[address] [place], [place] Statistical Engineer: Waldemar Billy M.D.,PhD WBC (Bld) [#/Vol] 12.8 10*3/uL High 3.8-10.8 [facility] Comment on above: Performed By: #### 2 27, 4418, 4420, 89837, 809, 80865, 374 #### [facility] [address], [address] [place] [address] Statistical Engineer: Octavio Segovia MD #### 64890, 91576 #### [facility], [address] [facility] [address] Statistical Engineer: Alejandra Queen MD,PhD,FADIA #### [phone] #### [facility] [address] [facility] [place] [address] Statistical Engineer: Waldemar Billy M.D.,PhD Cell count panel (Body fld)O rdered By: Johanna Prieto on 09-24-2024 Clarity (Body fld) Clear Clear [facility] Color (Body fld) Colorless Colorless, Straw, Yellow [facility] RBC Auto (Body fld) [#/Vol] /uL see comment /uL [facility] WBC (Body fld) [#/Vol] 0.022 10*3/uL See Commen t [facility] Body Fluid cell coun t reference ranges have not been established by [facility]. Reference ranges provided are based on published references. This test was developed and its performance characteristics determined by [facility]. It has not been cleared or approved by the [place] Food and Drug Administration. [facility] Cell count panel (Body fld)o n 09-24-2024 Clarity (Body fld) Clear Normal Clear [facility] Comment on above: Order Comment: Body Fluid cell count reference ranges have not been established by [facility]. Reference ranges provided are based on published references. This test was developed and its performance characteristics determined by [facility]. It has not been cleared or approved by the [place] Food and Drug Administration. Performed By: #### 3 4556-1 #### MICHAEL Ho ([id number]) [facility] ([facility]) [address] [place] [address] Color (Body fld) Colorless Normal Colorless, Straw, Yellow [facility] Comment on above: Order Comment: Body Fluid cell count reference ranges have not been established by [facility]. Reference ranges provided are based on published references. This test was developed and its performance characteristics determined by [facility]. It has not been cleared or approved by the [place] Food and Drug Administration. Performed By: #### 3 4556-1 #### MICHAEL Ho ([id number]) [facility] ([facility]) [address] [place] [address] RBC Auto (Body fld) [#/Vol] <2000 Normal see comment [facility] Comment on above: Order Comment: Body Fluid cell count reference ranges have not been established by [facility]. Reference ranges provided are based on published references. This test was developed and its performance characteristics determined by [facility]. It has not been cleared or approved by the [place] Food and Drug Administration. Performed By: #### 3 4556-1 #### MICHAEL Ho ([id number]) [facility] ([facility]) [address] [place] [address] WBC (Body fld) [#/Vol] 0.022 10*3/uL Normal See Maru t [facility] Comment on above: Order Comment: Body Fluid cell count reference ranges have not been established by [facility]. Reference ranges provided are based on published references. This test was developed and its performance characteristics determined by [facility]. It has not been cleared or approved by the [place] Food and Drug Administration. Performed By: #### 3 4556-1 #### MICHAEL Ho ([id number]) [facility] ([facility]) [address] [place] [address] Differential panel (Body fld )on 09-24-2024 Cells Counted Total (Body fld) [#] 100 [facility] Eosinophils/100 WBC Manual cnt (Body fld) 1 % see comment [facility] Comment on above: BAL Reference Range: <1% Lymphocytes/100 WBC Manual cnt (Body fld) 21 % see comment [facility] Comment on above: Synovial/Peritoneal/ Pericardial/Pleural Fluid Reference Range: <75% BAL Reference Range: <10% Monocytes+Macrophages/1 00 WBC Manual cnt (Body fld) 53 % see comment [facility] Comment on above: Synovial/Peritoneal/ Pericardial/Pleural Fluid Reference Range: <70% BAL Reference Range: 87-100% Neutrophils/100 WBC (Body fld) 25 % see comment [facility] Comment on above: Synovial/Peritoneal/ Pericardial/Pleural Fluid Reference Range: <25% BAL Reference Range: <2% Body Fluid cell differential reference ranges have not been established by [facility]. Reference ranges provided are based on published references. This test was developed and its performance characteristics determined by [facility]. It has not been cleared or approved by the [place] Food and Drug Administration. [facility] Cells Counted Total (Body fld) [#] 100 Normal [facility] Comment on above: Order Comment: Body Fluid cell differential reference ranges have not been established by [facility]. Reference ranges provided are based on published references. This test was developed and its performance characteristics determined by [facility]. It has not been cleared or approved by the [place] Food and Drug Administration. Performed By: #### 2 9580-8 #### MICHAEL Ho ([id number]) [facility] ([facility]) [address] [place] [address] Eosinophils/100 WBC Manual cnt (Body fld) 1 % Normal see comment [facility] Comment on above: Order Comment: Body Fluid cell differential reference ranges have not been established by [facility]. Reference ranges provided are based on published references. This test was developed and its performance characteristics determined by [facility]. It has not been cleared or approved by the [place] Food and Drug Administration. Result Comment: BAL Reference Range: <1% Performed By: #### 2 9580-8 #### MICHAEL Ho ([id number]) [facility] ([facility]) [address] [place] [address] Lymphocytes/100 WBC Manual cnt (Body fld) 21 % Normal see comment [facility] Comment on above: Order Comment: Body Fluid cell differential reference ranges have not been established by [facility]. Reference ranges provided are based on published references. This test was developed and its performance characteristics determined by [facility]. It has not been cleared or approved by the [place] Food and Drug Administration. Result Comment: Syno vial/Peritoneal/Pericardial/Pleural Fluid Reference Range: <75% BAL Reference Range: <10% Performed By: #### 2 9580-8 #### MICHAEL Ho ([id number]) [facility] ([facility]) [address] [place] [address] 99761 Monocytes+Macrophages/1 00 WBC Manual cnt (Body fld) 53 % Normal see comment [facility] Comment on above: Order Comment: Body Fluid cell differential reference ranges have not been established by [facility]. Reference ranges provided are based on published references. This test was developed and its performance characteristics determined by [facility]. It has not been cleared or approved by the US Food and Drug Administration. Result Comment: Syno vial/Peritoneal/Pericardial/Pleural Fluid Reference Range: <70% BAL Reference Range: 87-100% Performed By: #### 2 9580-8 #### MICHAEL Ho ([id number]) [facility] ([facility]) [address] [place] [address] 47016 Neutrophils/100 WBC (Body fld) 25 % Normal see comment [facility] Comment on above: Order Comment: Body Fluid cell differential reference ranges have not been established by [facility]. Reference ranges provided are based on published references. This test was developed and its performance characteristics determined by [facility]. It has not been cleared or approved by the US Food and Drug Administration. Result Comment: Syno vial/Peritoneal/Pericardial/Pleural Fluid Reference Range: <25% BAL Reference Range: <2% Performed By: #### 2 9580-8 #### MICHAEL Ho ([id number]) [facility] ([facility]) [address] [place] [address] 95927 Fungus identifiedon 09-25-19 Fungus identified Cx Nom (Unsp spec) Test: Fungal Culture/Smear Specimen Source: BRONCHO-ALVEOLAR LAVAGE OF RIGHT MIDDLE LOBE Specimen Type: Fluid Specimen Date: 09/24/2024 0839 Result Date: 10/12/2024 1020 Result Status: Final result Resulting Lab: [facility] [address] [place] [address] CULTURE No fungi isolated. STAIN No fungal elements seen Normal [facility] Comment on above: Performed By: #### 5 80-1 #### MICHAEL Ho ([id number]) [facility] ([facility]) [address] [place] [address] H. capsulatum Ag IA Qn (S)on 09-24-2024 H. capsulatum Ag Ql (Unsp spec) Not detected Normal Not Detected [facility] Comment on above: Performed By: #### 6 428-7 ####[facility] ([id number])[address] [place] [address] SCAN RESULT See Scanned Result Normal [facility] Comment on above: Performed By: #### 6 428-7 ####[facility] ([id number])[address] [place] [address] LEGIONELLA PCR PANELon 09-24 LEGIONELLA PNEUMO PCR, VIRC Not detected Normal Not Detected [facility] Comment on above: Result Comment: This test was developed and its performance characteristics determined by [employer] [facility]. It has not been cleared or approved by the U.S. Food and Drug Administration. Results should be used in conjunction with clinical findings, and should not form the sole basis for a diagnosis or treatment decision. Testing Performed at: [facility] [address] [place] [address], [place] [address] Business Intelligence Administrator: José Harris, PhD BHAVNA (ABB) CLIA # [id number] FLAG Interpretation: A = Abnormal, H = High, L = Low Performed By: #### L EGPC ####[facility] ([id number])[address] [place] [address] ALDRIDGE.LEGIONELLA PCR, VIRC Not detected Normal Not Detected [facility] Comment on above: Performed By: #### L EGPC ####[facility] ([id number])[address] [place] [address] Mycobacterium sp identifiedo n 09-24-2024 Mycobacterium sp identified Org specific cx Nom (Unsp spec) Test: AFB Culture/Smear Specimen Source: BRONCHO-ALVEOLAR LAVAGE OF RIGHT MIDDLE LOBE Specimen Type: Fluid Specimen Date: 09/24/2024 0839 Result Date: 11/11/2024 1204 Result Status: Final result Resulting Lab: [facility] [address] [place] [address] CULTURE No Mycobacteria isolated. STAIN No acid fast bacilli seen Normal [facility] Comment on above: Performed By: #### 5 43-9 #### MICHAEL Ho ([id number]) [facility] ([facility]) [address] [place] [address] Non-obgyn hospitalist physician cytology studyon Non-gynecological cytology method study Pathology report.total SEE COMMENT Non-gynecologic Cytology Case: [id number] Authorizing Provider: Dick Nguyen MD Collected: 09/24/2024 0837 Ordering Location: [facility] Received: 09/24/2024 1637 [place] Pathologist: Lyudmila Valentin MD Specimen: BRONCHO-ALVEOLAR LAVAGE OF RIGHT MIDDLE LOBE, BAL RML Path report.final diagnosis SEE COMMENT A. BRONCHO-ALVEOLAR LAVAGE OF RIGHT MIDDLE LOBE- BAL RML No malignant cells or viral inclusions are identified Numerous macrophages present GMS stain is negative for organisms: fungal and pneumocystis organisms. at 1551 EDT Laboratory comment SEE COMMENT Slide(s) initially screened by EDER Marquez at [address] [address] By the signature on this report, the [...] GMS PCP A1-3 LOG SPECIAL STAIN Normal [facility] Pathologist review Cedrick (Unsp spec) [Interp]on 09-24-2024 PATH REVIEW-CELL CT,FLUID Predominantly macrophages with some foamy and hemosiderin-laden forms. Normal [facility] Comment on above: Result Comment: Elec tronically signed out by Cat Gunter MD on 09/25/24 at 10:24 AM. By the signature on this report, the individual or group listed as making the Final Interpretation/Diagnosis certifies that they have reviewed this case. Performed By: #### 5 9465-5 #### MICHAEL Ho ([id number]) [facility] ([facility]) [address] [place] [address] Surgical pathology studyon 0 09-24-2024 Surgical pathology study Pathology report.total SEE COMMENT Surgical Pathology Case: [id number] Authorizing Provider: Dick Nguyen MD Collected: 09/24/2024 0817 Ordering Location: [facility] Received: 09/24/2024 1142 [place] Pathologist: Sanchez [...] the patient???s name and hospital number and "right lung cryo TBBX", are multiple pink-white, soft tissue fragments aggregating to 0.8 x 0.4 x 0.3 cm. The specimen is submitted in toto in one cassette. DMB Normal [facility] T-cell subsets CD4 and CD8 p janice (Bld)on 09-24-2024 CD3+CD4+% 72 % Normal not established [facility] Comment on above: Order Comment: Kenia l values have not been established for BAL specimens.This test is a Dual platform, multicolor, whole blood lysis assay. It was developed and its performance characteristics determined by the Department of Pathology, [facility], and has not been cleared or approved by the U.S. Food and Drug Administration. The laboratory is regulated under CLIA as qualified to perform high complexity testing. This test is used for clinical purposes. It should not be regarded as investigational or for research.Immunophenotypic analysis was performed using the following antibodies: CD45, CD3, CD4, and CD8 Performed By: #### 6 5759-3 ####MICHAEL Ho ([id number])[facility] ([facility])[address] [place] [address] CD3+CD8+% 16 % Normal not established [facility] Comment on above: Order Comment: Kenia l values have not been established for BAL specimens.This test is a Dual platform, multicolor, whole blood lysis assay. It was developed and its performance characteristics determined by the Department of Pathology, [facility], and has not been cleared or approved by the U.S. Food and Drug Administration. The laboratory is regulated under CLIA as qualified to perform high complexity testing. This test is used for clinical purposes. It should not be regarded as investigational or for research.Immunophenotypic analysis was performed using the following antibodies: CD45, CD3, CD4, and CD8 Performed By: #### 6 5759-3 ####MICHAEL Ho ([id number])[facility] ([facility])[address] [place] [address] CD4/CD8 RATIO 4.50 Normal not established [facility] Comment on above: Order Comment: Kenia l values have not been established for BAL specimens.This test is a Dual platform, multicolor, whole blood lysis assay. It was developed and its performance characteristics determined by the Department of Pathology, [facility], and has not been cleared or approved by the U.S. Food and Drug Administration. The laboratory is regulated under CLIA as qualified to perform high complexity testing. This test is used for clinical purposes. It should not be regarded as investigational or for research.Immunophenotypic analysis was performed using the following antibodies: CD45, CD3, CD4, and CD8 Performed By: #### 6 5759-3 ####MICHAEL Ho ([id number])[facility] ([facility])[address] [place] [address] XR CHEST 1 VIEWon 09-24-2024 XR CHEST 1 VIEW Interpreted By: Matthias Bunch and Mercado Amiel STUDY: XR CHEST 1 VIEW; 09/24/2024 9:32 am INDICATION: Signs/Symptoms:after bronchoscopy. COMPARISON: CT CHEST HIGH RESOLUTION 07/20/2024 ACCESSION NUMBER(S): [id number] ORDERING CLINICIAN: DICK NGUYEN FINDINGS: AP radiograph [...] Matthias Bunch 09/24/2024 10:10 AM Dictation workstation: [id number] [facility] XR Chest Single viewon 09-24 1. Diffuse bilateral hazy reticulonodular opacities with relatively increased size of right lateral lower lung field, which likely represents infiltrate/consolidatio n with superimposed interstitial lung findings previously described on CT. I have reviewed the images/study and I agree with the findings as stated by Dr. Aguila Gonzales. Signed by: Matthias Bunch 09/24/2024 10:10 AM Dictation workstation: [id number] Interpreted By: Matthias Bunch and Mercado Amiel STUDY: XR CHEST 1 VIEW; 09/24/2024 9:32 am INDICATION: Signs/Symptoms:after bronchoscopy. COMPARISON: CT CHEST HIGH RESOLUTION 07/20/2024 ACCESSION NUMBER(S): [id number] ORDERING CLINICIAN: DICK NGUYEN FINDINGS: AP radiograph [...] CT CHEST HIGH RESOLUTION 07/20/2024 ACCESSION NUMBER(S): [id number] ORDERING CLINICIAN: DICK NGUYEN FINDINGS: AP radiograph [...] Matthias Bunch 09/24/2024 10:10 AM Dictation workstation: [id number] [facility] Work Phone: Radiology Study observation (narrative) [facility] Work Phone: XR Chest Single viewOrdered By: Matthias Bunch on 09-24-2024 [facility] Work Phone: Endocrinology Visit Reporton 09-16-2024 Endocrinology Visit Report Normal [facility] Laboratory - Hematology and Cell countsOrdered By: Jessica Gerardo on 09-16-2024 HbA1c (Bld) [Mass fraction] 8.4 % High 4.2-6.3 [facility] No Panel InformationOrdered By: Jessica Gerardo on 09-16-2024 8.4 % High 4.2-6.3 [facility] Office Visit Reporton 2024 Office Visit Report Normal [facility] Neurology Visit Reporton Neurology Visit Report Normal [facility] Anion gap in Serum or Plasma Ordered By: Khadar Valencia on 08-12-2024 Anion gap [Moles/Vol] 14 mmol/L - [facility] BUN/creatinine ratioOrdered By: Khadar Valencia on 08-12-2024 Urea nitrogen/Creatinine [Mass ratio] 30.2 mg/mg High - [facility] Basic Metabolic Profile (BMP )on 08-12-2024 BUN/CRE 30.2 RATIO High 01-18 [facility] Comment on above: Performed By: #### L 500.2500, L503.7505 ####[facility] [address] [place], [address] Calcium [Mass/Vol] 9.6 mg/dL Normal 7.6-11.0 [facility] Comment on above: Performed By: #### L 500.2500, L503.7505 ####[facility] [address] [place], [address] Chloride [Moles/Vol] 98 mmol/L Normal 98-108 [facility] Comment on above: Performed By: #### L 500.2500, L503.7505 ####[facility] [address] [place], [address] CO2 [Moles/Vol] 25.1 mmol/L Normal 21.0-32.0 [facility] Comment on above: Performed By: #### L 500.2500, L503.7505 ####[facility] [address] [place], [address] Creatinine [Mass/Vol] 1.31 mg/dL High 0.70-1.20 [facility] Comment on above: Performed By: #### L 500.2500, L503.7505 ####[facility] [address] [place], [address] GAP 14 Normal 5-15 [facility] Comment on above: Performed By: #### L 500.2500, L503.7505 ####[facility] [address] [place], [address] GFR/1.73 sq M.predicted among non-blacks MDRD (S/P/Bld) [Vol rate/Area] 62 mL/min/{1.73_m2} Normal >60 [facility] Comment on above: Result Comment: mL/m in/1.73m2 CKD-EPI Creatinine Equation (2020) Performed By: #### L 500.2500, L503.7505 ####[facility] [address] [place], [address] Glucose [Mass/Vol] 104 mg/dL High 70-99 [facility] Comment on above: Performed By: #### L 500.2500, L503.7505 ####[facility] [address] [place], [address] Potassium [Moles/Vol] 4.4 mmol/L Normal 3.3-5.1 [facility] Comment on above: Performed By: #### L 500.2500, L503.7505 ####[facility] [address] [place], [address] Sodium [Moles/Vol] 137 mmol/L Normal 133-145 [facility] Comment on above: Performed By: #### L 500.2500, L503.7505 ####[facility] [address] [place], [place], [phone] Urea nitrogen [Mass/Vol] 40 mg/dL High 4-19 [facility] Comment on above: Performed By: #### L 500.2500, L503.8505 ####[facility] [address] [place], [place], [id number] Carbon dioxide, total [Moles /volume] in Central venous bloodOrdered By: Khadar Valencia on 08-12-2024 CO2 [Moles/Vol] 25.1 mmol/L 21.0-32.0 [facility] Chest PA and Lateralon 08-12 Chest PA and Lateral Normal [facility] Chloride assayOrdered By: James Valencia on 08-12-2024 Chloride [Moles/Vol] 98 mmol/L 98-108 [facility] Glomerular filtration rate ( GFR) estimation/1.73 sq m using serum, plasma, or whole bOrdered By: Khadar Valencia on 08-12-2024 GFR/1.73 sq M.predicted among non-blacks MDRD (S/P/Bld) [Vol rate/Area] 62 mL/min/{1.73_m2} >60 [facility] Comment on above: mL/min/1.73m2 CKD-EP I Creatinine Equation (2020) L503.7505on 08-12-2024 Natriuretic peptide B (Bld) [Mass/Vol] 626 pg/mL Normal <=900 [facility] Comment on above: Result Comment: Hear t Failure Unlikely: < 300 pg/mLHeart Failure Likely< 50 Years: > 450 pg/mL50-75 Years: > 900 pg/mL>75 Years: > 1800 pg/mL Performed By: #### L 500.2500, L503.7505 ####[facility] [address] [place], [place], [id number] Natriuretic peptide.B prohor renea N-Terminal [Mass/volume] in Serum or PlasmaOrdered By: Khadar Valencia on 08-12-2024 Natriuretic peptide.B prohormone N-Terminal [Mass/Vol] 626 pg/mL <900 [facility] Comment on above: Heart Failure Unlike ly: < 300 pg/mLHeart Failure Likely< 50 Years: > 450 pg/mL50-75 Years: > 900 pg/mL>75 Years: > 1800 pg/mL Potassium measurement (mass/ volume)Ordered By: Khadar Valencia on 08-12-2024 Potassium (Unsp spec) [Mass/Vol] 4.4 mmol/L 3.3-5.1 [facility] Serum creatinine measurement (mass/volume)Ordered By: Khadar Valencia on 08-12-2024 Creatinine [Mass/Vol] 1.31 mg/dL High 0.70-1.20 [facility] Serum glucose measurement (m ass/volume)Ordered By: [facility] Erik on 08-12-2024 Glucose [Mass/Vol] 104 mg/dL High 70-99 [facility] Serum or plasma calcium grazyna urement (mass/volume)Ordered By: Khadar Erik on 08-12-2024 Calcium [Mass/Vol] 9.6 mg/dL 7.6-11.0 [facility] Serum or plasma urea nitroge n measurement (mass/volume)Ordered By: Khadar Erik on 08-12-2024 Urea nitrogen [Mass/Vol] 40 mg/dL High 4-19 [facility] Sodium levelOrdered By: [facility] fernando Valencia on 08-12-2024 Sodium [Moles/Vol] 137 mmol/L 133-145 [facility] Office Visit Reporton 2024 Office Visit Report Normal [facility] ALDOLASEon 08-02-2024 ALDOLASE 4.6 U/L Normal < OR = 8.1 [facility] Comment on above: Performed By: #### 2 05, 5142, 4420, 08394, 809, 17002, 374 #### [facility] [address], [address] [place] [address] Statistical Engineer: Octavio Segovia MD #### [phone], 53518 #### [facility], [address] [place] [address] Statistical Engineer: Alejandra Queen MD,PhD,FADIA #### [phone] #### [facility] [address] [place] Statistical Engineer: Waldemar Billy M.D.,PhD RICARDO CASCADE(RICARDO,IFA W/RFL AN [...] AC-0: Negative International Consensus on RICARDO Patterns (https://doi.org/10.1515/wonj-2092-0272) For additional information, please refer to http://education.[employer].hc1.[employer]faq/SVA395 (This link is being provided for informational/ educational purposes only.) Performed By: #### 2 27, 4418, 4420, 37492, 809, 11939, 374 #### [facility] [address], [address] [place] [address] Statistical Engineer: Octavio Segovia MD #### [phone], [phone] #### [facility]/[address] [address] Statistical Engineer: Alejandra Queen MD,PhD,FADIA #### [id number] #### [facility] [address] [place] Statistical Engineer: Waldemar Billy M.D.,PhD ANCA SCREEN WITH MPO [...] and other disorders. Performed By: #### 2 , 8, 4420, 66059, 809, 44434, 374 #### [facility] [address], [address] [place] [address] Statistical Engineer: Octavio Segovia MD #### [phone], 32937 #### [facility], [address] [place] [address] Statistical Engineer: Alejandra Queen MD,PhD,FADIA #### [id number] #### [facility]/[place] [id number] [facility] [address] [place] Statistical Engineer: Waldemar Billy M.D.,PhD MYELOPEROXIDASE ANTIBODY <1.0 [...] active disease. Performed By: #### 2 , 8, 4420, 16113, 809, 98084, 374 #### [facility] [address], [address] [place] [phone] Statistical Engineer: Octavio Segovia MD #### [phone], 46070 #### [facility], [address] [place] [address] Statistical Engineer: Alejandra Queen MD,PhD,FADIA #### [id number] #### [facility] [address] [facility] [place], [place] Statistical Engineer: Waldemar Billy M.D.,PhD PROTEINASE-3 ANTIBODY <1.0 Normal <1.0 [facility] Comment on above: Result Comment: Value Interpretation <1.0 AI: No Antibody Detected >or=1.0 AI: Antibody Detected Autoantibodies to proteinase-3 (CT-3) are accepted as characteristic for granulomatosis with polyangiitis (GPA, Kaylen's), and are detectable in 95% of the histologically proven cases. The cytoplasmic IFA pattern, (c-ANCA), is based largely on autoantibody to CT-3 which serves as the primary antigen. These autoantibodies are present in active disease. Performed By: #### 2 , 4418, 4420, 08117, 809, 66513, 374 #### [facility] [address], [address] [place] [address] Statistical Engineer: Octavio Segovia MD #### [phone], [phone] #### [facility], [address] [place] [address] Statistical Engineer: Alejandra Queen MD,PhD,FADIA #### [phone] #### [facility]/[address] [place], [place] Statistical Engineer: Waldemar Billy M.D.,PhD C-REACTIVE PROTEINon 025 CRP [Mass/Vol] 10.6 mg/L High <8.0 [facility] Comment on above: Performed By: #### 2 , 4418, 4420, 20713, 809, 51076, 374 #### [facility] [address], [address] [place] [address] Statistical Engineer: Octavio Segovia MD #### [phone], 03672 #### [facility], [address] [place] [address] Statistical Engineer: Alejandra Queen MD,PhD,FADIA #### [id number] #### [facility]/[place] [id number] [facility] [address] [place], [place] Statistical Engineer: Waldemar Billy M.D.,PhD CREATINE KINASE, TOTALon CREATINE KINASE, TOTAL 46 U/L Normal 22-308 [facility] Comment on above: Performed By: #### 2 27, 4418, 4420, 84901, 809, 56718, 374 #### [facility] [place] [address] [facility], [address] Statistical Engineer: Octavio Segovia MD #### [phone], [phone] #### [facility], [address] [place] [address] Statistical Engineer: Alejandra Queen MD,PhD,FADIA #### [phone] #### [facility]/[place] [address] [facility] [facility] [address] [place], [place] Statistical Engineer: Waldemar Billy M.D.,PhD CYCLIC CITRULLINATED PEPTIDE (CCP) AB (IGG)on 08-02-2024 CYCLIC CITRULLINATED PEPTIDE (CCP) AB (IGG) <16 Normal [facility] Comment on above: Result Comment: Refe rence Range Negative: <20 Weak Positive: 20-39 Moderate Positive: 40-59 Strong Positive: >59 Performed By: #### 2 27, 4418, 4420, 93215, 809, 24479, 374 #### [facility] [address], [address] [place] [address] Statistical Engineer: Octavio Segovia MD #### [phone], 06843 #### [facility], [address] [place], [place] Statistical Engineer: Alejandra Queen MD,PhD,FADIA #### [id number] #### [facility]/[place] [id number] [facility] [address] [place] Statistical Engineer: Waldemar Billy M.D.,PhD EXTENDED MYOSITIS SPECIFIC [...] analytical performance characteristics have been determined by [facility]. It has not been cleared or approved by the FDA. This assay has been validated pursuant to the CLIA regulations and is used for clinical purposes. Performed By: #### 2 27, 4068, 4420, 33662, 809, 59411, 374 #### [facility] [address], [address] [place] [address] Statistical Engineer: Octavio Segovia MD #### [phone], 21027 #### [facility], [address] [place] [address] Statistical Engineer: Alejandra Queen MD,PhD,FADIA #### [phone] #### [facility] [address] [facility] [place] [address] Statistical Engineer: Waldemar Billy M.D.,PhD EJ AB <11 Normal <11 [facility] Comment on above: Order Comment: FASTI NG:NO FASTING: NO Performed By: #### 2 27, 4418, 4420, 54462, 809, 14581, 374 #### [facility] [address], [address] [place] [address] Statistical Engineer: Octavio Segovia MD #### [phone], 16824 #### [facility], [address] [place] [address] Statistical Engineer: Alejandra Queen MD,PhD,FADIA #### [id number] #### [facility] [address] [facility] [place], [place] Statistical Engineer: Waldemar Billy M.D.,PhD HMGCR AB (IGG) <2 Normal <20 [facility] Comment on above: Order Comment: FASTI NG:NO FASTING: NO Result Comment: 1-Uhkteiu-4-Methylglutaryl-Coenzyme A Reductase (HMGCR) Ab is associated with necrotizing myopathy and is often found with the use of statin medications. Rarely, HMGCR Ab associated myositis has also been seen in patients ingesting mushrooms and other foods. Performed By: #### 2 27, 4418, 4420, 26826, 809, 63965, 374 #### [facility] [address], [address] [place] [address] Statistical Engineer: Octavio Segovia MD #### [id number], [phone] #### [facility], [address] [place] [address] Statistical Engineer: Alejandra Queen MD,PhD,FADIA #### [id number] #### [facility] [address] [facility] [place], [place] Statistical Engineer: Waldemar Billy M.D.,PhD SAMANTHA-1 AB <11 Normal <11 [facility] Comment on above: Order Comment: FASTI NG:NO FASTING: NO Performed By: #### 2 27, 4418, 4420, 33916, 809, 91737, 374 #### [facility] of [facility] [address], [address] [place] [address] Statistical Engineer: Octavio Segovia MD #### [phone], [phone] #### [facility], [address] [facility] [place] Statistical Engineer: Alejandra Queen MD,PhD,FADIA #### [id number] #### [facility]/[address] [place], [place] Statistical Engineer: Waldemar Billy M.D.,PhD MDA5 AB <11 Normal <11 [facility] Comment on above: Order Comment: FASTI NG:NO FASTING: NO Performed By: #### 2 27, 4418, 4420, 98661, 809, 76420, 374 #### [facility] [place] [address], [address] [place] [address] Statistical Engineer: Octavio Segovia MD #### [phone], [phone] #### [facility], [address] [place] Statistical Engineer: Alejandra Queen MD,PhD,FADIA #### [id number] #### [facility]/[address] [place], [place] Statistical Engineer: Waldemar Billy M.D.,PhD IL-2 ALPHA AB <11 Normal <11 [facility] Comment on above: Order Comment: FASTI NG:NO FASTING: NO Performed By: #### 2 27, 4418, 4420, 99410, 809, 00754, 374 #### [facility] [address], [address] [place] [address] Statistical Engineer: Octavio Segovia MD #### [phone], [phone] #### [facility], [address] [facility] [place] Statistical Engineer: Alejandra Queen MD,PhD,FADIA #### [id number] #### [facility]/[place] [address] [facility] [place], [place] Statistical Engineer: Waldemar Billy M.D.,PhD IL-2 BETA AB <11 Normal <11 [facility] Comment on above: Order Comment: FASTI NG:NO FASTING: NO Performed By: #### 2 27, 4418, 4420, 17726, 809, 03650, 374 #### [facility] [address] [facility], [address] [place] [address] Statistical Engineer: Octavio Segovia MD #### [phone], [phone] #### [facility], [address] [facility] [place] Statistical Engineer: Alejandra Queen MD,PhD,FADIA #### [id number] #### [facility] [address] [place] [address] [place], [place] Statistical Engineer: Waldemar Billy M.D.,PhD NXP-2 AB <11 [...] with a rash. Additionally, MSAs to MDA5 ([id number]) have been identified in patients with clinically [...] analytical performance characteristics have been determined by [employer]. It has not been cleared or approved by the FDA. This assay has been validated pursuant to the CLIA regulations and is used for clinical purposes. Performed By: #### 2 27, 4418, 4420, 44282, 809, 83559, 374 #### [facility] [address] [facility], [address] [place] [address] Statistical Engineer: Octavio Segovia MD #### [phone], [id number] #### [facility], [address] [facility] [place] Statistical Engineer: Alejandra Queen MD,PhD,FADIA #### [id number] #### [facility]/[address] [place], [place] Statistical Engineer: Waldemar Billy M.D.,PhD O AB <11 Normal <11 [facility] Comment on above: Order Comment: FASTI NG:NO FASTING: NO Performed By: #### 2 27, 4418, 4420, 11721, 809, 02552, 374 #### [facility] [address], [address] [place] [address] Statistical Engineer: Octavio Segovia MD #### [id number], [id number] #### [facility], [address] [facility] [place] Statistical Engineer: Alejandra Queen MD,PhD,FADIA #### [id number] #### [facility]/[place] [address] [facility] [place], [place] Statistical Engineer: Waldemar Billy M.D.,PhD PL-12 AB <11 Normal <11 [facility] Comment on above: Order Comment: FASTI NG:NO FASTING: NO Performed By: #### 2 27, 4418, 4420, 62858, 809, 31069, 374 #### [facility] [address], [address] [place] [address] Statistical Engineer: Octavio Segovia MD #### [id number], 54914 #### [facility], [facility] [place] [address] Statistical Engineer: Alejandra Queen MD,PhD,FADIA #### [id number] #### [facility]/[address] [place], [place] Statistical Engineer: Waldemar Billy M.D.,PhD PL-7 AB <11 Normal <11 [facility] Comment on above: Order Comment: FASTI NG:NO FASTING: NO Performed By: #### 2 27, 4418, 4420, 73266, 809, 55210, 374 #### [facility] [address] , [address] [place] [address] Statistical Engineer: Octavio Segovia MD #### [phone], 22158 #### [facility], [address] [place], [place] [address] Statistical Engineer: Alejandra Queen MD,PhD,FADIA #### [id number] #### [facility]/[address] [place], [place] Statistical Engineer: Waldemar Billy M.D.,PhD SRP AB <11 Normal <11 [facility] Comment on above: Order Comment: FASTI NG:NO FASTING: NO Performed By: #### 2 27, 4418, 4420, 62286, 809, 76882, 374 #### [facility] [address] , [address] [place] [address] Statistical Engineer: Octavio Segovia MD #### [phone], [id number] #### [facility], [address] [place] Statistical Engineer: Alejandra Queen MD,PhD,FADIA #### [id number] #### [facility] [address] [place], [place] Statistical Engineer: Waldemar Billy M.D.,PhD TIF1 GAMMA AB <11 Normal <11 [facility] Comment on above: Order Comment: FASTI NG:NO FASTING: NO Performed By: #### 2 27, 4418, 4420, 94807, 809, 43962, 374 #### [facility] [place] [address] [facility], [address] [place] [address] Statistical Engineer: Octavio Segovia MD #### [phone], 53701 #### [facility], [address] [place], [place] Statistical Engineer: Alejandra Queen MD,PhD,FADIA #### [id number] #### [facility] [address] [place], [place] Statistical Engineer: Waldemar Billy M.D.,PhD HYPERSENSITIVITY PNEUMONITIS SCREEN 08-02-2024 ASPERGILLUS FUMIGATUS Negative Normal NEGATIVE Que [facility] Comment on above: Performed By: #### 2 27, 4418, 4420, 00445, 809, 37966, 374 #### [facility] [address] , [address] [place] [address] Statistical Engineer: Octavio Segovia MD #### 85023, 41795 #### [facility], [address] [place] Statistical Engineer: Alejandra Queen MD,PhD,FADIA #### [id number] #### [facility] [address] [place] Statistical Engineer: Waldemar Billy M.D.,PhD MICROPOLYSPORA FAENI Negative Normal NEGATIVE Ques t [facility] Comment on above: Performed By: #### 2 27, 4418, 4420, 43286, 809, 71317, 374 #### [facility] of [address], [address] [place] [address] Statistical Engineer: Octavio Segovia MD #### 54209, 94889 #### [facility], [address] [place] [address] Statistical Engineer: Alejandra Queen MD,PhD,FADIA #### [id number] #### [facility]/[place] [address] [facility] [place], [place] Statistical Engineer: Waldemar Billy M.D.,PhD PIGEON SERUM Negative Normal NEGATIVE [facility] Comment on above: Performed By: #### 2 27, 4418, 4420, 34910, 809, 01824, 374 #### [facility] of [address], [address] [place] [address] Statistical Engineer: Octavio Segovia MD #### [phone], 37806 #### [facility], [address] [address] Statistical Engineer: Alejandra Queen MD,PhD,FADIA #### [id number] #### [facility]/[address] [place], [place] Statistical Engineer: Waldemar Billy M.D.,PhD S. VIRIDIS Negative Normal NEGATIVE [facility] Comment on above: Result Comment: This test was developed and its analytical performance characteristics have been determined by [employer]. It has not been cleared or approved by the FDA. This assay has been validated pursuant to the CLIA regulations and is used for clinical purposes. Performed By: #### 2 27, 4418, 4420, 31264, 809, 61927, 374 #### [facility] of [address], [address] [place] [address] Statistical Engineer: Octavio Segovia MD #### [id number], 83468 #### [facility], [address] [place] Statistical Engineer: Alejandra Queen MD,PhD,FADIA #### [id number] #### [facility]/[address] [place], [place] Statistical Engineer: Waldemar Billy M.D.,PhD T. CANDIDUS Negative Normal NEGATIVE [facility] Comment on above: Performed By: #### 2 27, 4418, 4420, 36532, 809, 65116, 374 #### [facility] [address] , [address] [place] [address] Statistical Engineer: Octavio Segovia MD #### [phone], 26956 #### [facility], [address] [place] Statistical Engineer: Alejandra Queen MD,PhD,FADIA #### [id number] #### [facility]/[address] [place], [place] Statistical Engineer: Waldemar Billy M.D.,PhD T. VULGARIS Negative Normal NEGATIVE [facility] Comment on above: Performed By: #### 2 27, 4418, 4420, 97904, 809, 02282, 374 #### [facility] [place] [address] , [address] [place] [address] Statistical Engineer: Octavio Segovia MD #### 47515, 99071 #### [facility], [address] [place] Statistical Engineer: Alejandra Queen MD,PhD,FADIA #### [id number] #### [facility]/[address] [place], [place] Statistical Engineer: Waldemar Billy M.D.,PhD RHEUMATOID FACTORon 08-03-19 25 RHEUMATOID FACTOR 41 IU/mL High <14 [facility] Comment on above: Performed By: #### 2 27, 4418, 4420, 16838, 809, 52108, 374 #### [facility] [address], [address] [place] [address] Statistical Engineer: Octavio Segovia MD #### [phone], 83103 #### [facility], [address] [place], [place] Statistical Engineer: Alejandra Queen MD,PhD,FADIA #### [id number] #### [facility] [address] [place], [place] Statistical Engineer: Waldemar Billy M.D.,PhD SED RATE BY MODIFIED WESTERG RENon 08-02-2024 SED RATE BY MODIFIED WESTERGREN 36 mm/h High < OR = 20 [facility] Comment on above: Performed By: #### 2 27, 4418, 4420, 93755, 809, 04786, 374 #### [facility] [address], [address] [place] [address] Statistical Engineer: Octavio Segovia MD #### 15869, 41267 #### [facility], [address] [place], [place] Statistical Engineer: Alejandra Queen MD,PhD,FADIA #### [phone] #### [facility]/[place] [address] [facility] [address] [place], [place] Statistical Engineer: Waldemar Billy M.D.,PhD TRANSTHORACIC ECHO (TTE) [facility] 07-23-2024 TRANSTHORACIC ECHO (TTE) COMPLETE [facility] [address] [facility], [address], [place] [address] TRANSTHORACIC ECHOCARDIOGRAM REPORT Patient Name: KRUNAL LEOS Reading Physician: [id number] David Nguyễn MD Study Date: 07/23/2024 Ordering Provider: [id number] ROSALINO PADRON MRN/PID: [id number] Fellow: Nurse: Date of /Age: 5 1965 Casket Liner: Ena hernandez RDALBERTO Gender assigned at M Additional Staff: : Height: 175.26 cm Admit Date: Weight: 141.07 kg Admission Status: Outpatient BSA / BMI: 2.49 m2 / 45.93 kg/m2 Blood Pressure: 157/78 mmHg Department Location: [facility] Study Type: TRANSTHORACIC ECHO (TTE) COMPLETE Diagnosis/ICD: Pulmonary hypertension, unspecified-I27.20 Indication: Pulmonary hypertension CPT Code: Echo Complete w Full Doppler-[id number] Study Detail: The following Echo studies were [...] VEINS: PulmV A Revs Dur: 121.00 msec [id number] David Nguyễn MD Electronically signed on 07/24/2024 at 9:17:53 AM Final Normal [facility] CT CHEST HIGH RESOLUTIONon 0 07-20-2024 CT CHEST HIGH RESOLUTION Interpreted By: Julissa Bolaños, STUDY: CT CHEST HIGH RESOLUTION; 07/20/2024 12:56 pm INDICATION: Signs/Symptoms:ILD. COMPARISON: None. ACCESSION NUMBER(S): [id number] ORDERING CLINICIAN: RSOALINO PADRON TECHNIQUE: Using helical multidetector technique, volumetric [...] in 12 months may be obtained. (Konrad Webbhon et al., Guidelines for management of incidental pulmonary nodules detected on CT images: From the Fleischner Society 2017, Radiology. 2017 Sep;284 (1):228-243.) FLEISCHNER.ACR.IF.1 MACRO: None Signed by: Julissa Banuelos 07/20/2024 1:33 PM Dictation workstation: [id number] [facility] CT Cheston 07-20-2024 1. Extensive subpleu ral [...] chest in 12 months may be obtained. (Haytishanna Webbhosalma et al., Guidelines for management of incidental pulmonary nodules detected on CT images: From the Fleischner Society 2017, Radiology. 2017 Sep;284 (1):228-243.) FLEISCHNER.ACR.IF.1 MACRO: None Signed by: Julissa Banuelos 07/20/2024 1:33 PM Dictation workstation: [id number] [facility] MMODAL Interpreted By: Julissa Pletiez, STUDY: CT CHEST HIGH RESOLUTION; 07/20/2024 12:56 pm INDICATION: Signs/Symptoms:ILD. COMPARISON: None. ACCESSION NUMBER(S): [id number] ORDERING CLINICIAN: ROSALINO PADRON TECHNIQUE: Using helical [...] in the thoracic spine. Mild bilateral gynecomastia. MMODAL Julissa Bolaños MD - 07/20/2024 Interpreted By: Julissa Bolaoñs, STUDY: CT CHEST HIGH RESOLUTION; 07/20/2024 12:56 pm INDICATION: Signs/Symptoms:ILD. COMPARISON: None. ACCESSION NUMBER(S): [id number] ORDERING CLINICIAN: ROSALINO PADRON TECHNIQUE: Using helical [...] in 12 months may be obtained. (Konrad Diane al., Guidelines for management of incidental pulmonary nodules detected on CT images: From the Fleischner Society 2017, Radiology. 2017 Sep;284 (1):228-243.) FLEKARENNER.ACR.IF.1 MACRO: None Signed by: Julissa Banuelos 07/20/2024 1:33 PM Dictation workstation: [id number] [facility] Work Phone: Radiology Study observation (narrative) [facility] Work Phone: CT ChestOrdered By: Julissa Banuelos on 07-20-2024 [facility] Work Phone: Office Visit Reporton 2024 Office Visit Report Normal [facility] Pulmonary Visit Reporton Pulmonary Visit Report Normal [facility] Office Visit Reporton 2024 Office Visit Report Normal [facility] 36on 06-01-2024 36 Patient called in [...] and to seek medical attention immediately. Normal [facility] 12 Lead EKG performed by [facility] on 05-21-2024 12 Lead EKG performed by [facility] Normal [facility] Basic Metabolic Profile (BMP )on 05-21-2024 BUN/CRE 21.2 RATIO High 01-18 [facility] Comment on above: Performed By: #### L 500.2500 ####[facility] [address] [place], [address] [place],Total 9.6 mg/dL Normal 8.5-10.1 [facility] Comment on above: Performed By: #### L 500.2500 ####[facility] [address] [place], [address] Chloride [Moles/Vol] 99 mmol/L Normal 98-107 [facility] Comment on above: Performed By: #### L 500.2500 ####[facility] [address] [place], [address] CO2 [Moles/Vol] 26.0 mmol/L Normal 21.0-32.0 [facility] Comment on above: Performed By: #### L 500.2500 ####[facility] [address] [place], [address] Creatinine [Mass/Vol] 1.60 mg/dL High 0.70-1.30 [facility] Comment on above: Result Comment: The validity of the calculated GFR GFRAA in patients over70 years has not been determined. Clinical correlation isessential. Performed By: #### L 500.2500 ####[facility] [address] [place], [address] EST GFR - AA 57 mL/min Low >60 [facility] Comment on above: Result Comment: Afri can [place] GFR Calc Performed By: #### L 500.2500 ####[facility] [address] [place], [address] GAP 12 Normal 5-15 [facility] Comment on above: Performed By: #### L 500.2500 ####[facility] [address] [place], [address] GFR/1.73 sq M.predicted among non-blacks MDRD (S/P/Bld) [Vol rate/Area] 47 mL/min/{1.73_m2} Low >60 [facility] Comment on above: Result Comment: Non- GFR Calc Performed By: #### L 500.2500 ####[facility] [address] [place], [address] Glucose [Mass/Vol] 174 mg/dL High 74-106 [facility] Comment on above: Result Comment: Fast ing Glucose result greater than or equal to 126 mg/dLsuggests DIABETES MELLITUS per A.D.A. criteria. Performed By: #### L 500.2500 ####[facility] [address] [place], [address] Potassium [Moles/Vol] 3.8 mmol/L Normal 3.5-5.1 [facility] Comment on above: Performed By: #### L 500.2500 ####[facility] [address] [place], [address] Sodium [Moles/Vol] 136 mmol/L Normal 136-145 [facility] Comment on above: Performed By: #### L 500.2500 ####[facility] [address] [place], [address] Urea nitrogen [Mass/Vol] 34 mg/dL High 7-18 [facility] Comment on above: Performed By: #### L 500.2500 ####[facility] [address] [place], [address] Bilirubin directOrdered By: SAV Rojas on 05-21-2024 Bilirubin.direct [Mass/Vol] 0.32 mg/dL High 0.00-0.30 [facility] Bilirubin, totalOrdered By: SAV Rojas on 05-21-2024 Bilirubin [Mass/Vol] 1.40 mg/dL High 0.20-1.00 [facility] Comment on above: For patients on eltr ombopag therapy, use of Dimension [place] TBIL is not recommended. Blood urea nitrogen (BUN)/cr eatinine ratioOrdered By: Lydia Segura on 05-21-2024 Urea nitrogen/Creatinine [Mass ratio] 21.2 mg/mg High 10-20 [facility] Carbon dioxide measurementOr dered By: Lydia Segura on 05-21-2024 CO2 [Moles/Vol] 26.0 mmol/L 21.0-32.0 [facility] Cardiology Visit Reporton Cardiology Visit Report Normal [facility] Chloride measurementOrdered By: Lydia Segura on 05-21-2024 Chloride [Moles/Vol] 99 mmol/L 98-107 [facility] Glomerular filtration rate ( GFR) estimationOrdered By: Lydia Segura on 05-21-2024 GFR/1.73 sq M.predicted among non-blacks MDRD (S/P/Bld) [Vol rate/Area] 47 mL/min/{1.73_m2} Low >60 [facility] Comment on above: Non- GFR Calc Glucose measurementOrdered B y: Lydia Segura on 05-21-2024 Glucose [Mass/Vol] 174 mg/dL High 74-106 [facility] Comment on above: Fasting Glucose resu lt greater than or equal to 126 mg/dL suggests DIABETES MELLITUS per A.D.A. criteria. Laboratory - Chemistry and C hemistry - challengeOrdered By: SAV Rojas on 05-21-2024 AST [Catalytic activity/Vol] 18 U/L 15-37 [facility] Liver Profileon 05-21-2024 Albumin [Mass/Vol] 3.4 g/dL Normal 3.2-5.0 [facility] Comment on above: Order Comment: 1 mo. after 1st dose of OFEV, monthly for 1st 3 mo Performed By: #### L 500.3400 ####[facility] [address] [place], [address] ALK P 81 U/L Normal 45-117 [facility] Comment on above: Order Comment: 1 mo. after 1st dose of OFEV, monthly for 1st 3 mo Performed By: #### L 500.3400 ####[facility] [address] [place], [address] ALT [Catalytic activity/Vol] 17 U/L Normal 16-61 [facility] Comment on above: Order Comment: 1 mo. after 1st dose of OFEV, monthly for 1st 3 mo Performed By: #### L 500.3400 ####[facility] [address] [place], [address] AST [Catalytic activity/Vol] 18 U/L Normal 15-37 [facility] Comment on above: Order Comment: 1 mo. after 1st dose of OFEV, monthly for 1st 3 mo Performed By: #### L 500.3400 ####[facility] [address] [place], [address] Bilirubin [Mass/Vol] 1.40 mg/dL High 0.20-1.00 [facility] Comment on above: Order Comment: 1 mo. after 1st dose of OFEV, monthly for 1st 3 mo Result Comment: For patients on eltrombopag therapy, use of Dimension [place] TBIL is not recommended. Performed By: #### L 500.3400 ####[facility] [address] [place], [address] Bilirubin.direct [Mass/Vol] 0.32 mg/dL High 0.00-0.30 [facility] Comment on above: Order Comment: 1 mo. after 1st dose of OFEV, monthly for 1st 3 mo Performed By: #### L 500.3400 ####[facility] [address] [place], [place], [address] Globulin (S) [Mass/Vol] 5.1 g/dL High 2.2-4.2 [facility] Comment on above: Order Comment: 1 mo. after 1st dose of OFEV, monthly for 1st 3 mo Performed By: #### L 500.3400 ####[facility] [address] [place], [place], [address] T PROT 8.5 g/dL High 6.4-8.2 [facility] Comment on above: Order Comment: 1 mo. after 1st dose of OFEV, monthly for 1st 3 mo Performed By: #### L 500.3400 ####[facility] [address] [place], [place], [address] No Panel InformationOrdered By: SAV Rojas on 05-21-2024 18 U/L 15-37 [facility] Potassium measurementOrdered By: Lydia Segura on 05-21-2024 Potassium [Moles/Vol] 3.8 mmol/L 3.5-5.1 [facility] Serum anion gap measurementO rdered By: Lydia Segura on 05-21-2024 Anion gap [Moles/Vol] 12 mmol/L 5-15 [facility] Serum globulin measurementOr dered By: SAV Rojas on 05-21-2024 Globulin (S) [Mass/Vol] 5.1 g/dL High 2.2-4.2 [facility] Serum or plasma alanine briscoe otransferase (ALT) measurementOrdered By: SAV Rojas on 05-21-2024 ALT [Catalytic activity/Vol] 17 U/L 16-61 [facility] Serum or plasma albumin grazyna urement (mass/volume)Ordered By: SAV Rojas on 05-21-2024 Albumin [Mass/Vol] 3.4 g/dL 3.2-5.0 [facility] Serum or plasma alkaline benjamin sphatase measurementOrdered By: SAV Rojas on 05-21-2024 ALP [Catalytic activity/Vol] 81 U/L 45-117 [facility] Serum or plasma calcium grazyna urement (mass/volume)Ordered By: Lydia Segura on 05-21-2024 Calcium [Mass/Vol] 9.6 mg/dL 8.5-10.1 [facility] Serum or plasma creatinine m easurement (mass/volume)Ordered By: Lydia Segura on 05-21-2024 Creatinine [Mass/Vol] 1.60 mg/dL High 0.70-1.30 [facility] Comment on above: The validity of the calculated GFR & GFRAA in patients over 70 years has not been determined. Clinical correlation is essential. Serum or plasma urea nitroge n measurement (mass/volume)Ordered By: Lydia Segura on 05-21-2024 Urea nitrogen [Mass/Vol] 34 mg/dL High 7-18 [facility] Sodium levelOrdered By: Macho Segura on 05-21-2024 Sodium [Moles/Vol] 136 mmol/L 136-145 [facility] Total proteinOrdered By: SAV Rojas on 05-21-2024 Protein [Mass/Vol] 8.5 g/dL High 6.4-8.2 [facility] 36on 05-13-2024 36 Patient lvm with questions about what medications he should be taking post op. I returned his call but had to [facility] with call back number. [facility] 36on 05-08-2024 36 Spoke with Mr. [...] RTC 6 months - 1 year. Sooner doriannMindi Culp MD Normal [facility] ECG 12-LEADon 05-07-2024 ECG 12-LEAD IMPRESSION: Sinus rhythm Atrial premature complex LVH with IVCD and secondary repol abnrm Inferior infarct, age indeterminate Electronically Signed On 05-07-2024 10:34:37 EST by Krunal Allen [facility] APTTon 05-06-2024 aPTT Coag (Bld) [Time] 22.1 s Normal 20.0-30.5 [facility] Comment on above: Result Comment: DAPHNE Low COMMENTS: NOTE: The therapeutic time for Heparin anticoagulation, based on Xa activity inhibition, is an APTT of 46-80 seconds. Performed By: #### L AB325, [id number] ####Statistical Engineer: RADHA SIMMONS ([id number])[address] BASIC METABOLIC PANELon Anion gap [Moles/Vol] 9 mmol/L Normal 3-13 [facility] Comment on above: Performed By: #### L AB15 #### Statistical Engineer: RADHA SIMMONS ([id number]) [facility]) [address] [place] [address] [place] Calcium [Mass/Vol] 8.5 mg/dL Low 8.8-10.0 [facility] Comment on above: Performed By: #### L AB15 #### Statistical Engineer: RADHA SIMMONS ([id number]) [facility]) [address] [place] [address] [place] Chloride [Moles/Vol] 103 mmol/L Normal 98-107 [facility] Comment on above: Performed By: #### L AB15 #### Statistical Engineer: RADHA SIMMONS ([id number]) [facility]) [address] [place] [address] CO2 [Moles/Vol] 22 mmol/L Normal 22-29 [facility] Comment on above: Performed By: #### L AB15 #### Statistical Engineer: RADHA SIMMONS ([id number]) [facility] [address] [place] [address] Creatinine [Mass/Vol] 0.96 mg/dL Normal 0.72-1.25 [facility] Comment on above: Performed By: #### L AB15 #### Statistical Engineer: RADHA SIMMONS ([id number]) [facility]) [address] [place] [address] GLOMERULAR FILTRATION RATE ML/MIN/1.73 SQ M.PREDICTED >90.0 Normal >60.0 [facility] Comment on above: Result Comment: Calc ulation based on the Chronic Kidney Disease Epidemiology Collaboration (CKD-EPI) equation refit without adjustment for race Performed By: #### L AB15 #### Statistical Engineer: RADHA SIMMONS ([id number]) [facility] [address] [place] [address] Glucose [Mass/Vol] 107 mg/dL High 74-100 [facility] Comment on above: Performed By: #### L AB15 #### Statistical Engineer: RADHA SIMMONS ([id number]) [facility]) [address] [place] [address] Potassium [Moles/Vol] 3.9 mmol/L Normal 3.5-5.1 [facility] Comment on above: Result Comment: TC Significant interference from hemolysis. Result integrity compromised. Interpret with caution. Performed By: #### L AB15 #### Statistical Engineer: RADHA SIMMONS ([id number]) [facility] ([facility]) [address] [place] [address] Sodium [Moles/Vol] 134 mmol/L Low 136-145 [facility] Comment on above: Performed By: #### L AB15 #### Statistical Engineer: RADHA [id number]) [facility] ([facility]) [address] [place] [address] Urea nitrogen [Mass/Vol] 31 mg/dL High 9-23 [facility] Comment on above: Performed By: #### L AB15 #### Statistical Engineer: RADHA SIMMONS ([id number]) [facility] ([facility]) [address] [place] [address] Basic metabolic 1998 panelon 05-06-2024 Anion gap [Moles/Vol] 9 mmol/L 3 - 13 mmol/L [facility] Calcium [Mass/Vol] 8.5 mg/dL Low 8.8 - 10. 0 mg/dL [facility] Chloride [Moles/Vol] 103 mmol/L 98 - 10 7 mmol/L [facility] CO2 [Moles/Vol] 22 mmol/L 22 - 29 mmol/L [facility] Creatinine [Mass/Vol] 0.96 mg/dL 0.72 - 1.25 mg/dL [facility] GFR/1.73 sq M.predicted (S/P/Bld) [Vol rate/Area] - PINF [facility] Comment on above: Calculation based on the Chronic Kidney Disease Epidemiology Collaboration (CKD-EPI) equation refit without adjustment for race Glucose [Mass/Vol] 107 mg/dL High 74 - 100 mg/dL [facility] Interpretation and review of laboratory results Abnormal [facility] Potassium [Moles/Vol] 3.9 mmol/L 3.5 - 5.1 mmol/L [facility] Comment on above: TC Significant interference from hemolysis. Result integrity compromised. Interpret with caution. Sodium [Moles/Vol] 134 mmol/L Low 136 - 145 mmol/L [facility] Urea nitrogen [Mass/Vol] 31 mg/dL High 9 - 23 mg/dL [facility] CBC (HEMOGRAM)on 05-06-2024 Erythrocyte distribution width (RBC) [Ratio] 20.8 % High 11.5-15.0 [facility] Comment on above: Performed By: #### L AB294 ####Statistical Engineer: RADHA SIMMONS ([id number])[facility])[address] [place] [address] Hematocrit (Bld) [Volume fraction] 30.1 % Low 40.0-52.0 [facility] Comment on above: Performed By: #### L AB294 ####Statistical Engineer: RADHA SIMMONS ([id number])[facility] ([facility])[address] [place] [address] Hemoglobin (Bld) [Mass/Vol] 9.0 g/dL Low 13.0-18.0 [facility] Comment on above: Performed By: #### L AB294 ####Statistical Engineer: RADHA SIMMONS ([id number])[facility] ([facility])[address] [place] [address] MCH (RBC) [Entitic mass] 22.5 pg Low 26.0-34.0 [facility] Comment on above: Performed By: #### L AB294 ####Statistical Engineer: RADHA SIMMONS ([id number])[facility])[address] [place] [address] MCHC 29.9 % Low 30.5-36.0 [facility] Comment on above: Performed By: #### L AB294 ####Statistical Engineer: RADHA SIMMONS ([id number])[facility] ([facility])[address] [place] [address] MCV (RBC) [Entitic vol] 75.3 fL Low 77.0-99.0 [facility] Comment on above: Performed By: #### L [id number] ####Statistical Engineer: RADHA SIMMONS ([id number])[facility])[address] [place] [address] Platelet mean volume (Bld) [Entitic vol] 10.2 fL Normal 9.0-12.7 [facility] Comment on above: Performed By: #### L AB294 ####Statistical Engineer: RADHA SIMMONS ([id number])[facility])[address] [place] [address] Platelets (Bld) [#/Vol] 243 10*3/uL Normal 140-440 [facility] Comment on above: Performed By: #### L AB294 ####Statistical Engineer: RADHA SIMMONS ([id number])[facility] ([facility])[address] [place] [address] RBC (Bld) [#/Vol] 4.00 10*6/uL Low 4.40-5.90 [facility] Comment on above: Performed By: #### L AB294 ####Statistical Engineer: RADHA SIMMONS ([id number])[facility] ([facility])[address] [place] [address] WBC (Bld) [#/Vol] 11.1 10*3/uL High 3.6-10.7 [facility] Comment on above: Performed By: #### L [id number] ####Statistical Engineer: RADHA SIMMONS ([id number])[facility] ([facility])[address] [place] [address] CBC panel Auto (Bld)Ordered By: Krupa Rodriguez on 05-06-2024 Erythrocyte distribution width (RBC) [Ratio] 20.8 % High 11.5 - 15.0 % [facility] Hematocrit (Bld) [Volume fraction] 30.1 % Low 40.0 - 52.0 % [facility] Hemoglobin (Bld) [Mass/Vol] 9 g/dL Low 13.0 - 18.0 g/dL [facility] Interpretation and review of laboratory results Abnormal [facility] MCH (RBC) [Entitic mass] 22.5 pg Low 26.0 - 34.0 pg [facility] MCHC (RBC) [Mass/Vol] 29.9 % Low 30.5 - 36.0 % [facility] MCV (RBC) [Entitic vol] 75.3 fL Low 77.0 - 99.0 fL [facility] Platelet mean volume (Bld) [Entitic vol] 10.2 fL 9.0 - 12.7 fL [facility] Platelets (Bld) [#/Vol] 243 10*3/uL 140 - 440 10*3/uL [facility] RBC (Bld) [#/Vol] 4 10*6/uL Low 4.40 - 5.9 0 10*6/uL [facility] WBC (Bld) [#/Vol] 11.1 10*3/uL High 3.6 - 10.7 10*3/uL [facility] Consulton 05-06-2024 Consult CONSULT NOTE: STROKE SERVICE [...] PLAN: 1. Obtain P2 Y12 study 2. [place] Brilinta 90 mg twice daily x 30 [...] 10 to 15 minutes. Was hospitalized at [place] and had Plavix added at that time. [...] Symptoms resolved. He was again hospitalized at [facility]. No medication changes were made. April [...] Pt denie (more content not included)... Normal [facility] Laboratory - Coagulationon 0 05-06-2024 PT Coag (Bld) [Time] 10.9 s 9.0 - 12.0 s [facility] No Panel InformationOrdered By: Ana Maria Mancini on 05-06-2024 Interpretation and review of laboratory results Normal [facility] PRU Test (P2Y12) 211 180 - PINF [facility] ben Comment on above: >180 - 376 PRU [P2Y1 2 Reaction Units] - No drug present 10-180 PRU [P2Y12 Reaction Units] - Decreased platelet reactivity to P2Y12 inhibitor. [facility] No Panel Informationon 05-06 Interpretation and review of laboratory results Normal [facility] Nursing Noteon 05-06-2024 Nursing Note Phase 2 care complet ed. Iv removed and dc instructions provided. Will dc to home with family Right groin site benign and neuro unchanged NIH 0 Normal [facility] Nursing Note Patient arrived from home, Dr. Culp in to speak with the patient regarding DCA with possible carotid stenting, consent obtained. Patient was placed supine on exam table prepped and draped in sterile fashion. Telemetry monitors placed, sedation provided by PROOF PRESS OPERATOR. Patient tolerated procedure well. Transfer to ICU. Normal [facility] PROTHROMBIN TIMEon INR Coag (PPP) [Relative time] 1.0 {INR} Normal 0.9-1.1 [facility] Comment on above: Result Comment: Luciano [...] Myocardial Infarction Performed By: #### L AB325, [id number] ####Statistical Engineer: RADHA SIMMONS ([id number])[facility] ([facility] PT Coag (PPP) [Time] 10.9 s Normal 9.0-12.0 [facility] [employer] [facility] Comment on above: Performed By: #### L AB325, [id number] ####Statistical Engineer: RADHA SIMMONS ([id number])[facility] ([facility])[address] [place] [address] PRU TEST (P2Y12)on PRU TEST (P2Y12) 211 Normal >=180 [facility] Comment on above: Result Comment: >180 - 376 PRU [P2Y12 Reaction Units] - No drug present 10-180 PRU [P2Y12 Reaction Units] - Decreased platelet reactivity to P2Y12 inhibitor. 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 He has had multiple events despite treatment with Eliquis (for atrial fibrillation), ASA and clopidogrel. The most recent event was 2 weeks ago, and he follows in [place]. CTA was concerning for left ICA severe stenosis and he presented for conventional angiography to evaluate and treat carotid stenosis if present and further evaluate right MCA stenosis. Consent: The benefits, alternatives, and risks to the procedure including but not limited to stroke, bleed, infection, dissection, pseudoaneurysm, IL, renal failure, radiation injury, hair loss, contrast [...] 4F dilator was exchanged for a 5 Micronesian short sheath over a guidewire. 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 He has had multiple events despite treatment with Eliquis (for atrial fibrillation), ASA and clopidogrel. The most recent event was 2 weeks ago, and he follows in [place]. CTA was concerning for left ICA severe stenosis and he presented for conventional angiography to evaluate and treat carotid stenosis if present and further evaluate right MCA stenosis. Consent: The benefits, alternatives, and risks to the procedure including but not limited to stroke, bleed, infection, dissection, pseudoaneurysm, IL, renal failure, radiation injury, hair loss, contrast [...] 4F dilator was exchanged for a 5 Micronesian short sheath over a guidewire. The short [...] AP and late (more content not included)... [facility] Radiology Study observation (narrative) [facility] alth RFA Cerebral arteries Bilate ral Views W contrast IAOrdered By: Oziel Culp on 05-06-2024 [facility] [employer] Work Phone: aPTT Coag (Bld) [Time]on aPTT Coag (PPP) [Time] 22.1 s 20.0 - 30.5 s [facility] [employer] NOTE: The therapeuti c time for Heparin anticoagulation, based on Xa activity inhibition, is an APTT of 46-80 seconds. [facility] Absolute lymphocyte countOrd ered By: Rito Lundberg on 05-05-2024 Lymphocytes Auto (Unsp spec) [#/Vol] 1.51 10*3/uL 0.83-4.51 [facility] Automated lymphocyte count a s percentage of total leukocytesOrdered By: Rito Lundberg on 05-05-2024 Lymphocytes/100 WBC Auto (Unsp spec) 11.3 % Low 19-41 [facility] Basophil percentageOrdered B y: Rito Lundberg on 05-05-2024 Basophils/100 WBC (Bld) 0.4 % 0-1 [facility] Blood manual differential co mment interpretation (narrative result)Ordered By: Rito Lundberg on 05-05-2024 Manual differential comment Cedrick (Bld) [Interp] SCANNED [facility] CBC W/Diff, Automatedon -0 OVALOCYTE 2+ Normal [facility] Comment on above: Performed By: #### L 503.6030, L503.0105, L100.0100, L503.6550 ####[facility] [address] [place], [address] Anisocytosis Ql (Bld) 2+ Normal [facility] Comment on above: Performed By: #### L 503.6030, L503.0105, L100.0100, L503.6550 ####[facility] [address] [place], [address] MICROCYTIC 1+ Normal [facility] Comment on above: Performed By: #### L 503.6030, L503.0105, L100.0100, L503.6550 ####[facility] [address] [place], [address] PLT EST ADEQUATE Normal ADEQ [facility] Comment on above: Performed By: #### L 503.6030, L503.0105, L100.0100, L503.6550 ####[facility] [address] [place], [address] SMEAR COMMENT SCANNED Normal [facility] Comment on above: Performed By: #### L 503.6030, L503.0105, L100.0100, L503.6550 ####[facility] [address] [place], [address] Eosinophil percentageOrdered By: Rito Lundberg on 05-05-2024 Eosinophils/100 WBC (Bld) 2.1 % 0-5 [facility] Erythrocyte distribution wid th ratioOrdered By: [facility] Lund[facility] on 05-05-2024 Erythrocyte distribution width (RBC) [Ratio] 21.0 % High 11.6-14.6 [facility] Erythrocyte distribution wid th standard deviationOrdered By: Rito Lundberg on 05-05-2024 Erythrocyte distribution width (RBC) [Ratio] 56.7 fl High 35.1-43.9 [facility] Ferritinon 05-05-2024 Ferritin [Mass/Vol] 134 ng/mL Normal 26-388 [facility] Comment on above: Performed By: #### L 503.6030, L503.0105, L100.0100, L503.6550 ####[facility] [address] [place], [address] Hematocrit Auto (Bld) [Volum e fraction]Ordered By: Rito Lundberg on 05-05-2024 Hematocrit (Bld) [Volume fraction] 31.6 % Low 40-54 [facility] Hemoglobin measurementOrdere d By: Rito Lundberg on 02-04-2025 Hemoglobin (Bld) [Mass/Vol] 9.3 g/dL Low 13.0-16.5 [facility] Immature granulocytes/100 WB C Auto (Bld)Ordered By: Rito Lundberg on 05-05-2024 Immature granulocytes/100 WBC (Bld) 0.600 % 0.0-0.9 [facility] Iron measurement (mass/mass) Ordered By: Rito Lundberg on 05-05-2024 Iron (Unsp spec) [Mass/Mass] 74 ug/dL 65-175 [facility] Iron+Iron Binding Capacityon 05-05-2024 Iron [Mass/Vol] 74 ug/dL Normal 65-175 [facility] Comment on above: Performed By: #### L 503.6030, L503.0105, L100.0100, L503.6550 ####[facility] [address] [place], [address] IRON SATURATION 22.0 Normal 15.0-55.0 [facility] Comment on above: Performed By: #### L 503.6030, L503.0105, L100.0100, L503.6550 ####[facility] [address] [place], [address] TIBC 337 ug/dL Normal 250-450 [facility] Comment on above: Performed By: #### L 503.6030, L503.0105, L100.0100, L503.6550 ####[facility] [address] [place], [address] MCV (mean corpuscular volume ) determinationOrdered By: Rito Lundberg on 05-05-2024 MCV (RBC) [Entitic vol] 76.5 fL Low 80-94 [facility] Mean corpuscular hemoglobin (MCH) determinationOrdered By: Rito Lundberg on 05-05-2024 MCH (RBC) [Entitic mass] 22.5 pg Low 27.0-32.0 [facility] Monocyte percentageOrdered B y: Rito Lundberg on 05-05-2024 Monocytes/100 WBC (Bld) 8.1 % 0-10 [facility] Neutrophil percentageOrdered By: Rito Lundberg on 05-05-2024 Neutrophils/100 WBC (Bld) 77.5 % High 47-70 [facility] No Panel InformationOrdered By: Rito Lundberg on 05-05-2024 2+ [facility] Nursing Noteon 05-05-2024 Nursing Note Report given to IR rickey marsh, neuro assessment completed along with groin site check. Normal [facility] Oncology Visit Reporton Oncology Visit Report Normal [facility] Ovalocyte detectionOrdered B y: Rito Lundberg on 05-05-2024 Ovalocytes LM Ql (Bld) 2+ [facility] Platelet countOrdered By: Chanell Lundberg on 05-05-2024 Platelets (Bld) [#/Vol] 303 10*3/uL 150-450 [facility] Platelet estimateOrdered By: Rito Lundberg on 05-05-2024 Platelets LM Ql (Bld) ADEQUATE ADEQ [facility] RBC Auto (Bld) [#/Vol]Ordere d By: Rito Lundberg on 05-05-2024 RBC (Bld) [#/Vol] 4.13 10*6/uL Low 4.6-6.2 [facility] Serum or plasma iron saturat ion measurement (mass fraction)Ordered By: Rito Lundberg on 05-05-2024 Iron saturation [Mass fraction] 22.0 % 15.0-55.0 [facility] Vitamin B12on 05-05-2024 Cobalamin (Vitamin B12) [Mass/Vol] 1259 pg/mL High 211-911 [facility] Comment on above: Performed By: #### L 503.6030, L503.0105, L100.0100, L503.6550 ####[facility] [address] [place], [place], [id number] Vitamin B12 measurementOrder ed By: Rito Lundberg on 05-05-2024 Cobalamin (Vitamin B12) [Mass/Vol] 1259 pg/mL High 211-911 [facility] White blood cell (WBC) count Ordered By: Rito Lundberg on 05-05-2024 WBC (Bld) [#/Vol] 13.3 10*3/uL High 4.4-11.0 [facility] Pulmonary Visit Reporton Pulmonary Visit Report Normal [facility] Cardiology Visit Reporton Cardiology Visit Report Normal [facility] MR/BMS.BVSon 04-30-2024 MR/BMS.BVS Normal [facility] Office Visit Reporton 2024 Office Visit Report Normal [facility] 36on 04-27-2024 36 Spoke with patient [...] iv contrast dye, iodine, or shellfish. Normal [facility] Office Visiton 04-27-2024 Follow-up visit [id number] Krunal Leos 1965 M Date Provider Department Center 04/27/2024 [id number] JAUREGUI [facility] None No family history on file Level of Service:80406 CT OFFICE/OUTPATIENT ESTABLISHED MOD [facility] 30 MIN Reason for Visit and Comments: Follow-up [369122] - discuss carotid duplex 04/06/23 [facility] Progress Noteon 04-27-2024 Progress Note [...] [facility] [place]com G6 Sensor [facility], USE DIRECTED FOR CONTINUOUS BLOOD GLUCOSE MONITORING, [...] Stallworth MD ergocalciferol (Vitamin D2) 1.25 MG (31294 UT) capsule Take 1 capsule by mouth [...] 10/06/23 01/06/24 Harmeet Stallworth MD HYDROcodone-acetaminoph en (Wells) 5-325 MG tablet Take 1 tablet by [...] MD pantop (more content not included)... Normal [facility] Vitamin B12on 04-27-2024 Cobalamin (Vitamin B12) [Mass/Vol] 572 pg/mL Normal 211-911 [facility] Comment on above: Performed By: #### L 100.0100, L100.9950, L503.6550, L503.0105, L503.6030 ####[facility] [address] [place], [place], [id number] Absolute lymphocyte countOrd ered By: Cookie Arabella on 04-25-2024 Lymphocytes Auto (Unsp spec) [#/Vol] 1.80 10*3/uL 0.83-4.51 [facility] Automated lymphocyte count a s percentage of total leukocytesOrdered By: Cookie Arabella on 04-25-2024 Lymphocytes/100 WBC Auto (Unsp spec) 14.4 % Low 19-41 [facility] Basophil percentageOrdered B y: on 04-25-2024 Basophils/100 WBC (Bld) 0.5 % 0-1 [facility] Bedside Glucoseon 04-25-2024 FINGERSTICK GLU 252 mg/dL High 74-106 [facility] Comment on above: Result Comment: ANI BRADFORD OF PATIENT CARE PER NURSING PROTOCOL Performed By: #### L 501.080 ####[facility] [address] [place], [address] FINGERSTICK GLU 160 mg/dL High 74-106 [facility] Comment on above: Result Comment: ANI GEMENT OF PATIENT CARE PER NURSING PROTOCOL Performed By: #### L 501.080 ####[facility] [address] [place], [address] FINGERSTICK GLU 249 mg/dL High 74-106 [facility] Comment on above: Result Comment: ANI GEMENT OF PATIENT CARE PER NURSING PROTOCOL Performed By: #### L 501.080 ####[facility] [address] [place], [address] Bilirubin, totalOrdered By: Cookie Bell on 04-25-2024 Bilirubin [Mass/Vol] 0.60 mg/dL 0.20-1.00 [facility] Blood manual differential co mment interpretation (narrative result)Ordered By: Cookie Bell on 04-25-2024 Manual differential comment Cedrick (Bld) [Interp] SCANNED [facility] Blood polychromasia detectio n by light microscopyOrdered By: Cookie Bell on 04-25-2024 Polychromasia LM Ql (Bld) RARE [facility] Blood schistocyte detection by light microscopyOrdered By: Cookie Arabella on 04-25-2024 Schistocytes LM Ql (Bld) RARE [facility] Brain without Contraston Brain without Contrast Normal [facility] CBC W/Diff, Automatedon 04-02 [employer] CELLS RARE Normal [facility] Comment on above: Performed By: #### L 501.9520, L500.4100, L501.9985, L500.4050, L100.0100 ####[facility] [address] [place], [address] MICROCYTIC 1+ Normal [facility] Comment on above: Performed By: #### L 501.9520, L500.4100, L501.9985, L500.4050, L100.0100 ####[facility] [address] [place], [address] SCHISTOCYTES RARE Normal [facility] Comment on above: Performed By: #### L 501.9520, L500.4100, L501.9985, L500.4050, L100.0100 ####[facility] [address] [place], [address] POLYCHROMASIA RARE [facility] Comment on above: Performed By: #### L 501.9520, L500.4100, L501.9985, L500.4050, L100.0100 ####[facility] [address] [place], [address] SMEAR COMMENT SCANNED Normal [facility] Comment on above: Performed By: #### L 501.9520, L500.4100, L501.9985, L500.4050, L100.0100 ####[facility] [address] [place], [address] Carbon dioxide measurementOr dered By: Cookie Bell on 04-25-2024 CO2 [Moles/Vol] 26.0 mmol/L 21.0-32.0 [facility] Chloride measurementOrdered By: Cookie Bell on 04-25-2024 Chloride [Moles/Vol] 103 mmol/L 98-107 [facility] Comprehensive Metabolic Prof ilon 04-25-2024 Albumin [Mass/Vol] 2.8 g/dL Low 3.2-5.0 [facility] Comment on above: Performed By: #### L 501.9520, L500.4100, L501.9985, L500.4050, L100.0100 ####[facility] [address] [place], [address] Albumin/Globulin [Mass ratio] 0.7 {ratio} Low 0.9-2.4 [facility] Comment on above: Performed By: #### L 501.9520, L500.4100, L501.9985, L500.4050, L100.0100 ####[facility] [address] [place], [address] ALK P 69 U/L Normal 45-117 [facility] Comment on above: Performed By: #### L 501.9520, L500.4100, L501.9985, L500.4050, L100.0100 ####[facility] [address] [place], [address] ALT [Catalytic activity/Vol] 18 U/L Normal 16-61 [facility] Comment on above: Performed By: #### L 501.9520, L500.4100, L501.9985, L500.4050, L100.0100 ####[facility] [address] [place], [address] AST [Catalytic activity/Vol] 13 U/L Low 15-37 [facility] Comment on above: Performed By: #### L 501.9520, L500.4100, L501.9985, L500.4050, L100.0100 ####[facility] [address] [place], [address] Bilirubin [Mass/Vol] 0.60 mg/dL Normal 0.20-1.00 [facility] Comment on above: Result Comment: For patients on eltrombopag therapy, use of Dimension [place] TBIL is not recommended. Performed By: #### L 501.9520, L500.4100, L501.9985, L500.4050, L100.0100 ####[facility] [address] [place], [address] BUN/CRE 26.3 RATIO High 10-20 [facility] Comment on above: Performed By: #### L 501.9520, L500.4100, L501.9985, L500.4050, L100.0100 ####[facility] [address] [place], [address] CA,Total 8.5 mg/dL Normal 8.5-10.1 [facility] Comment on above: Performed By: #### L 501.9520, L500.4100, L501.9985, L500.4050, L100.0100 ####[facility] [address] [place], [address] Chloride [Moles/Vol] 103 mmol/L Normal 98-107 [facility] Comment on above: Performed By: #### L 501.9520, L500.4100, L501.9985, L500.4050, L100.0100 ####[facility] [address] [place], [address] CO2 [Moles/Vol] 26.0 mmol/L Normal 21.0-32.0 [facility] Comment on above: Performed By: #### L 501.9520, L500.4100, L501.9985, L500.4050, L100.0100 ####[facility] [address] [place], [address] Creatinine [Mass/Vol] 1.14 mg/dL Normal 0.70-1.30 [facility] Comment on above: Result Comment: The validity of the calculated GFR GFRAA in patients over70 years has not been determined. Clinical correlation isessential. Performed By: #### L 501.9520, L500.4100, L501.9985, L500.4050, L100.0100 ####[facility] [address] [place], [address] ECRCL 94.76 ml/min Normal [facility] Comment on above: Performed By: #### L 501.9520, L500.4100, L501.9985, L500.4050, L100.0100 ####[facility] [address] [place], [address] EST GFR - AA 84 mL/min Normal >60 [facility] Comment on above: Result Comment: Afri can [place] GFR Calc Performed By: #### L 501.9520, L500.4100, L501.9985, L500.4050, L100.0100 ####[facility] [address] [place], [address] GAP 8 Normal 5-15 [facility] Comment on above: Performed By: #### L 501.9520, L500.4100, L501.9985, L500.4050, L100.0100 ####[facility] [address] [place], [address] GFR/1.73 sq M.predicted among non-blacks MDRD (S/P/Bld) [Vol rate/Area] 70 mL/min/{1.73_m2} Normal >60 [facility] Comment on above: Result Comment: Non- GFR Calc Performed By: #### L 501.9520, L500.4100, L501.9985, L500.4050, L100.0100 ####[facility] [address] [place], [address] Globulin (S) [Mass/Vol] 4.0 g/dL Normal 2.2-4.2 [facility] Comment on above: Performed By: #### L 501.9520, L500.4100, L501.9985, L500.4050, L100.0100 ####[facility] [address] [place], [address] Glucose [Mass/Vol] 172 mg/dL High 74-106 [facility] Comment on above: Result Comment: Fast ing Glucose result greater than or equal to 126 mg/dLsuggests DIABETES MELLITUS per A.D.A. criteria. Performed By: #### L 501.9520, L500.4100, L501.9985, L500.4050, L100.0100 ####[facility] [address] [place], [address] Potassium [Moles/Vol] 3.7 mmol/L Normal 3.5-5.1 [facility] Comment on above: Performed By: #### L 501.9520, L500.4100, L501.9985, L500.4050, L100.0100 ####[facility] [address] [place], [address] Sodium [Moles/Vol] 137 mmol/L Normal 136-145 [facility] Comment on above: Performed By: #### L 501.9520, L500.4100, L501.9985, L500.4050, L100.0100 ####[facility] [address] [place], [address] T PROT 6.8 g/dL Normal 6.4-8.2 [facility] Comment on above: Performed By: #### L 501.9520, L500.4100, L501.9985, L500.4050, L100.0100 ####[facility] [address] [place], [address] Urea nitrogen [Mass/Vol] 30 mg/dL High 7-18 [facility] Comment on above: Performed By: #### L 501.9520, L500.4100, L501.9985, L500.4050, L100.0100 ####[facility] [address] [place], [address] Eosinophil percentageOrdered By: White on 04-25-2024 Eosinophils/100 WBC (Bld) 3.1 % 0-5 [facility] Erythrocyte distribution wid th ratioOrdered By: White on 04-25-2024 Erythrocyte distribution width (RBC) [Ratio] 20.5 % High 11.6-14.6 [facility] Erythrocyte distribution wid th standard deviationOrdered By: White on 04-25-2024 Erythrocyte distribution width (RBC) [Ratio] 54.5 fl High 35.1-43.9 [facility] Glomerular filtration rate ( GFR) estimationOrdered By: White on 04-25-2024 GFR/1.73 sq M.predicted among non-blacks MDRD (S/P/Bld) [Vol rate/Area] 70 mL/min/{1.73_m2} >60 [facility] Glucose measurementOrdered B y: Cookie Bell on 04-25-2024 Glucose [Mass/Vol] 172 mg/dL High 74-106 [facility] deOrdered By: Ochoa Johnson on 04-25-2024 Glucose [Mass/Vol] 252 mg/dL High 74-106 [facility] Hematocrit Auto (Bld) [Volum e fraction]Ordered By: Cookie Bell on 04-25-2024 Hematocrit (Bld) [Volume fraction] 29.2 % Low 40-54 [facility] Hemoglobin A1con 04-25-2024 HbA1c (Bld) [Mass fraction] 7.3 % High 3.8-5.6 [facility] Comment on above: Result Comment: Norm al < 5.7 % Prediabetic 5.7 - 6.4 % Diabetic >or= 6.5 % Please note range changes. Performed By: #### L 501.9520, L500.4100, L501.9985, L500.4050, L100.0100 ####[facility] [address] [place], [place], [address] Hemoglobin A1c percentageOrd ered By: Cookie Bell on 04-25-2024 HbA1c (Bld) [Mass fraction] 7.3 % High 3.8-5.6 [facility] Hemoglobin measurementOrdere d By: Cookie Bell on 04-25-2024 Hemoglobin (Bld) [Mass/Vol] 8.6 g/dL Low 13.0-16.5 [facility] High density lipoprotein (HD L) measurementOrdered By: Cookie Bell on 04-25-2024 High density lipoprotein (HDL) measurement 38 mg/dL Low >40 [facility] Immature granulocytes/100 WB C Auto (Bld)Ordered By: Cookie Bell on 04-25-2024 Immature granulocytes/100 WBC (Bld) 0.600 % 0.0-0.9 [facility] L501.4020on 04-25-2024 TROPONIN-I HS 76 pg/mL Normal 3.0-78.0 [facility] Comment on above: Order Comment: Comme nts: SPECIMEN #3'TROP' Serial specimen #1, #2 or #3: 3 Result Comment: Plea se Note: New Test Units and Gender Specific Reference Ranges. For more information see Policy Stat Procedure [place] High Sensitivity Troponin (TNIH) and attachments. Performed By: #### L 501.4020 ####[facility] [address] [place], [address] TROPONIN-I HS 103 pg/mL High 3.0-78.0 [facility] Comment on above: Order Comment: Comme nts: SPECIMEN #2'TROP' Serial specimen #1, #2 or #3: 2 Result Comment: Plea se Note: New Test Units and Gender Specific Reference Ranges. For more information see Policy Stat Procedure [place] High Sensitivity Troponin (TNIH) and attachments. Performed By: #### L 501.4020 ####[facility] [address] [place], [address] Lipid Profileon 04-25-2024 Cholesterol [Mass/Vol] 127 mg/dL Normal 200 [facility] Comment on above: Result Comment: <200 mg/dL Desirable 200-240 mg/dL Borderline >240 mg/dL High Risk Performed By: #### L 501.9520, L500.4100, L501.9985, L500.4050, L100.0100 ####[facility] [address] [place], [address] Cholesterol in HDL [Mass/Vol] 38 mg/dL Low [facility] Comment on above: Result Comment: The drugs N-Acetylcysteine and Metamizole may falselydepress this assay. Reference Range HDL <40 mg/dL Low HDL Cholesterol HDL >or= 60 mg/dL High HDL Cholesterol Performed By: #### L 501.9520, L500.4100, L501.9985, L500.4050, L100.0100 ####[facility] [address] [place], [address] Cholesterol in LDL [Mass/Vol] 46 mg/dL Normal 0-130 [facility] Comment on above: Performed By: #### L 501.9520, L500.4100, L501.9985, L500.4050, L100.0100 ####[facility] [address] [place], [address] Cholesterol in VLDL [Mass/Vol] 43 mg/dL High 5-40 [facility] Comment on above: Performed By: #### L 501.9520, L500.4100, L501.9985, L500.4050, L100.0100 ####[facility] [address] [place], [address] Triglyceride [Mass/Vol] 216 mg/dL High [facility] Comment on above: Result Comment: The drugs N-Acetylcysteine and Metamizole may falselydepress this assay.Serum Triglycerides Reference Interval Normal <150 mg/dL Borderline high 150 - 199 mg/dL High 200 - 499 mg/dL Very High > or = 500 mg/dL Performed By: #### L 501.9520, L500.4100, L501.9985, L500.4050, L100.0100 ####[facility] [address] [place], [address] Low density lipoprotein (LDL ) cholesterol measurementOrdered By: Arabella on 04-25-2024 Low density lipoprotein (LDL) cholesterol measurement 46 mg/dL 0-130 [facility] MCV (mean corpuscular volume ) determinationOrdered By: on 04-25-2024 MCV (RBC) [Entitic vol] 75.3 fL Low 80-94 [facility] MR/CON.PCM.NEon 04-25-2024 MR/CON.PCM.NE Normal [facility] Mean corpuscular hemoglobin (MCH) determinationOrdered By: Arabella on 04-25-2024 MCH (RBC) [Entitic mass] 22.2 pg Low 27.0-32.0 [facility] Monocyte percentageOrdered B y: on 01-25-2025 Monocytes/100 WBC (Bld) 9.8 % 0-10 [facility] Neutrophil percentageOrdered By: Cookie Bell on 04-25-2024 Neutrophils/100 WBC (Bld) 71.6 % High 47-70 [facility] No Panel InformationOrdered By: Cookie Bell on 04-25-2024 13 U/L Low 15-37 [facility] Platelet countOrdered By: Katey Bell on 04-25-2024 Platelets (Bld) [#/Vol] 300 10*3/uL 150-450 [facility] Potassium measurementOrdered By: Cookie Bell on 04-25-2024 Potassium [Moles/Vol] 3.7 mmol/L 3.5-5.1 [facility] RBC Auto (Bld) [#/Vol]Ordere d By: Cookie Bell on 04-25-2024 RBC (Bld) [#/Vol] 3.88 10*6/uL Low 4.6-6.2 [facility] Serum globulin measurementOr dered By: Cookie Bell on 04-25-2024 Globulin (S) [Mass/Vol] 4.0 g/dL 2.2-4.2 [facility] Serum or plasma alanine briscoe otransferase (ALT) measurementOrdered By: Cookie Bell on 04-25-2024 ALT [Catalytic activity/Vol] 18 U/L 16-61 [facility] Serum or plasma albumin grazyna urement (mass/volume)Ordered By: Cookie Bell on 04-25-2024 Albumin [Mass/Vol] 2.8 g/dL Low 3.2-5.0 [facility] Serum or plasma alkaline benjamin sphatase measurementOrdered By: Cookie Bell on 04-25-2024 ALP [Catalytic activity/Vol] 69 U/L 45-117 [facility] Serum or plasma calcium grazyna urement (mass/volume)Ordered By: Cookie Bell on 04-25-2024 Calcium [Mass/Vol] 8.5 mg/dL 8.5-10.1 [facility] Serum or plasma cholesterol measurement (mass/volume)Ordered By: Cookie Bell on 04-25-2024 Cholesterol [Mass/Vol] 127 mg/dL <200 [facility] Serum or plasma creatinine m easurement (mass/volume)Ordered By: Cookie Bell on 04-25-2024 Creatinine [Mass/Vol] 1.14 mg/dL 0.70-1.30 [facility] Serum or plasma thyroid stim ulating hormone (TSH) measurement (units/volume)Ordered By: Cookie Bell on 04-25-2024 TSH Qn 5.220 uIU/mL High 0.358-3.740 [facility] Serum or plasma urea nitroge n measurement (mass/volume)Ordered By: Cookie Bell on 04-25-2024 Urea nitrogen [Mass/Vol] 30 mg/dL High 7-18 [facility] Sodium levelOrdered By: Celyu mn Arabella on 04-25-2024 Sodium [Moles/Vol] 137 mmol/L 136-145 [facility] Target cell detectionOrdered By: Cookie Bell on 04-25-2024 Target cells LM Ql (Bld) RARE [facility] Thyroid Stim Hormone (TSH)on 04-25-2024 TSH 5.220 uIU/mL High 0.358-3.740 [facility] Comment on above: Performed By: #### L 501.9520, L500.4100, L501.9985, L500.4050, L100.0100 ####[facility] [address] [place], [place], [id number] Total proteinOrdered By: Cely umn Arabella on 04-25-2024 Protein [Mass/Vol] 6.8 g/dL 6.4-8.2 [facility] Troponin IOrdered By: Cookie Bell on 04-25-2024 Troponin I 76 pg/mL 3.0-78.0 [facility] Very low density lipoprotein (VLDL) cholesterol measurementOrdered By: Cookie Bell on 04-25-2024 Very low density lipoprotein (VLDL) cholesterol measurement 43 mg/dL High 5-40 [facility] White blood cell (WBC) count Ordered By: Cookie Bell on 04-25-2024 WBC (Bld) [#/Vol] 12.5 10*3/uL High 4.4-11.0 [facility] 12 Lead EKGon 04-24-2024 12 Lead EKG Normal [facility] Abdomen Single View (Portabl e)on 04-24-2024 Abdomen Single View (Portable) Normal [facility] Absolute lymphocyte countOrd ered By: Radha Khan on 04-24-2024 Lymphocytes Auto (Unsp spec) [#/Vol] 2.02 10*3/uL 0.83-4.51 [facility] Activated partial thrombopla stin time (aPTT) in platelet poor plasma by coagulation aOrdered By: Daniel Mcneil on 04-24-2024 aPTT Coag (PPP) [Time] 24.8 s 24.1-36.2 [facility] Automated lymphocyte count a s percentage of total leukocytesOrdered By: Radha Khan on 04-24-2024 Lymphocytes/100 WBC Auto (Unsp spec) 14.4 % Low 19-41 [facility] Basic Metabolic Profile (BMP )on 04-24-2024 BUN/CRE 28.5 RATIO High 10-20 [facility] Comment on above: Order Comment: 'TROP ' Serial specimen #1, #2 or #3: 1 Performed By: #### L 500.2500, L300.3900, L300.4310, L100.0100, L501.4020 ####[facility] [address] [place], [address] CA,Total 8.9 mg/dL Normal 8.5-10.1 [facility] Comment on above: Order Comment: 'TROP ' Serial specimen #1, #2 or #3: 1 Performed By: #### L 500.2500, L300.3900, L300.4310, L100.0100, L501.4020 ####[facility] [address] [place], [address] Chloride [Moles/Vol] 106 mmol/L Normal 98-107 [facility] Comment on above: Order Comment: 'TROP ' Serial specimen #1, #2 or #3: 1 Performed By: #### L 500.2500, L300.3900, L300.4310, L100.0100, L501.4020 ####[facility] [address] [place], [address] CO2 [Moles/Vol] 27.0 mmol/L Normal 21.0-32.0 [facility] Comment on above: Order Comment: 'TROP ' Serial specimen #1, #2 or #3: 1 Performed By: #### L 500.2500, L300.3900, L300.4310, L100.0100, L501.4020 ####[facility] [address] [place], [address] Creatinine [Mass/Vol] 1.30 mg/dL Normal 0.70-1.30 [facility] Comment on above: Order Comment: 'TROP ' Serial specimen #1, #2 or #3: 1 Result Comment: The validity of the calculated GFR GFRAA in patients over70 years has not been determined. Clinical correlation isessential. Performed By: #### L 500.2500, L300.3900, L300.4310, L100.0100, L501.4020 ####[facility] [address] [place], [address] ECRCL 84.56 ml/min Normal [facility] Comment on above: Order Comment: 'TROP ' Serial specimen #1, #2 or #3: 1 Performed By: #### L 500.2500, L300.3900, L300.4310, L100.0100, L501.4020 ####[facility] [address] [place], [address] EST GFR - AA 72 mL/min Normal >60 [facility] Comment on above: Order Comment: 'TROP ' Serial specimen #1, #2 or #3: 1 Result Comment: Afri can [place] GFR Calc Performed By: #### L 500.2500, L300.3900, L300.4310, L100.0100, L501.4020 ####[facility] [address] [place], [address] GAP 6 Normal 5-15 [facility] Comment on above: Order Comment: 'TROP ' Serial specimen #1, #2 or #3: 1 Performed By: #### L 500.2500, L300.3900, L300.4310, L100.0100, L501.4020 ####[facility] [address] [place], [address] GFR/1.73 sq M.predicted among non-blacks MDRD (S/P/Bld) [Vol rate/Area] 60 mL/min/{1.73_m2} Normal >60 [facility] Comment on above: Order Comment: 'TROP ' Serial specimen #1, #2 or #3: 1 Result Comment: Non- GFR Calc Performed By: #### L 500.2500, L300.3900, L300.4310, L100.0100, L501.4020 ####[facility] [address] [place], [address] Glucose [Mass/Vol] 81 mg/dL Normal 74-106 [facility] Comment on above: Order Comment: 'TROP ' Serial specimen #1, #2 or #3: 1 Performed By: #### L 500.2500, L300.3900, L300.4310, L100.0100, L501.4020 ####[facility] [address] [place], [address] Potassium [Moles/Vol] 4.2 mmol/L Normal 3.5-5.1 [facility] Comment on above: Order Comment: 'TROP ' Serial specimen #1, #2 or #3: 1 Performed By: #### L 500.2500, L300.3900, L300.4310, L100.0100, L501.4020 ####[facility] [address] [place], [address] Sodium [Moles/Vol] 139 mmol/L Normal 136-145 [facility] Comment on above: Order Comment: 'TROP ' Serial specimen #1, #2 or #3: 1 Performed By: #### L 500.2500, L300.3900, L300.4310, L100.0100, L501.4020 ####[facility] [facility] [address] [place], [address] Urea nitrogen [Mass/Vol] 37 mg/dL High 7-18 [facility] Comment on above: Order Comment: 'TROP ' Serial specimen #1, #2 or #3: 1 Performed By: #### L 500.2500, L300.3900, L300.4310, L100.0100, L501.4020 ####[facility] [address] [place], [address] Basophil percentageOrdered B y: Radha Khan on 04-24-2024 Basophils/100 WBC (Bld) 0.4 % 0-1 [facility] CBC W/Diff, Automatedon 04-02 Anisocytosis Ql (Bld) 1+ Normal [facility] Comment on above: Performed By: #### L 100.0100, L100.9950, L503.6550, L503.0105, L503.6030 ####[facility] [address] [place], [address] HYPOCHROMASIA 1+ Normal [facility] Comment on above: Performed By: #### L 100.0100, L100.9950, L503.6550, L503.0105, L503.6030 ####[facility] [address] [place], [address] MICROCYTIC 1+ Normal [facility] Comment on above: Performed By: #### L 100.0100, L100.9950, L503.6550, L503.0105, L503.6030 ####[facility] [address] [place], [address] OVALOCYTE 1+ Normal [facility] Comment on above: Performed By: #### L 100.0100, L100.9950, L503.6550, L503.0105, L503.6030 ####[facility] [address] [place], [address] PLT EST ADEQUATE Normal ADEQ [facility] Comment on above: Performed By: #### L 100.0100, L100.9950, L503.6550, L503.0105, L503.6030 ####[facility] [address] [place], [address] RED CELL MORPH N CHROM Normal NORM C C [facility] Comment on above: Performed By: #### L 100.0100, L100.9950, L503.6550, L503.0105, L503.6030 ####[facility] [address] [place], [address] Anisocytosis Ql (Bld) 1+ Normal [facility] Comment on above: Performed By: #### L 500.2500, L300.3900, L300.4310, L100.0100, L501.4020 ####[facility] [address] [place], [address] HYPOCHROMASIA 1+ Normal [facility] Comment on above: Performed By: #### L 500.2500, L300.3900, L300.4310, L100.0100, L501.4020 ####[facility] [address] [place], [address] MICROCYTIC 1+ Normal [facility] Comment on above: Performed By: #### L 500.2500, L300.3900, L300.4310, L100.0100, L501.4020 ####[facility] [address] [place], [address] OVALOCYTE 1+ Normal [facility] Comment on above: Performed By: #### L 500.2500, L300.3900, L300.4310, L100.0100, L501.4020 ####[facility] [address] [place], [address] PLT EST ADEQUATE Normal ADEQ [facility] Comment on above: Performed By: #### L 500.2500, L300.3900, L300.4310, L100.0100, L501.4020 ####[facility] [address] [place], [place], [id number] RED CELL MORPH N CHROM Normal NORM C C [facility] Comment on above: Performed By: #### L 500.2500, L300.3900, L300.4310, L100.0100, L501.4020 ####[facility] [address] [place], [place], [id number] Chest 1 Viewon 04-24-2024 Chest 1 View Normal [facility] Emergency Department Summary on 04-24-2024 Emergency Department Summary Normal [facility] Eosinophil percentageOrdered By: Radha Khan on 04-24-2024 Eosinophils/100 WBC (Bld) 2.6 % 0-5 [facility] Erythrocyte distribution wid th ratioOrdered By: Radha Khan on 04-24-2024 Erythrocyte distribution width (RBC) [Ratio] 20.5 % High 11.6-14.6 [facility] Erythrocyte distribution wid th standard deviationOrdered By: Radha Khan on 04-24-2024 Erythrocyte distribution width (RBC) [Ratio] 56.2 fl High 35.1-43.9 [facility] Erythrocyte morphology asses smentOrdered By: Daniel Mcneil on 04-24-2024 RBC morphology finding Nom (Bld) N CHROM NORMAL NORM C&C [facility] Erythrocyte morphology asses smentOrdered By: Radha Khan on 04-24-2024 RBC morphology finding Nom (Bld) N CHROM NORMAL NORM C&C [facility] Ferritinon 04-24-2024 Ferritin [Mass/Vol] 102 ng/mL Normal 26-388 [facility] Comment on above: Performed By: #### L 100.0100, L100.9950, L503.6550, L503.0105, L503.6030 ####[facility] [address] [place], [place], [id number] H AND P Exam - Hospitaliston 04-24-2024 H&P Exam - Hospitalist Normal [facility] Hematocrit Auto (Bld) [Volum e fraction]Ordered By: Radha Khan on 04-24-2024 Hematocrit (Bld) [Volume fraction] 33.0 % Low 40-54 [facility] Hemoglobin measurementOrdere d By: Radha Khan on 04-24-2024 Hemoglobin (Bld) [Mass/Vol] 9.0 g/dL Low 13.0-16.5 [facility] Hypochromatic red blood cell detectionOrdered By: Daniel Mcneil on 04-24-2024 Hypochromia Ql (Bld) 1+ [facility] Hypochromatic red blood cell detectionOrdered By: Radha Khan on 04-24-2024 Hypochromia Ql (Bld) 1+ [facility] Immature granulocytes/100 WB C Auto (Bld)Ordered By: Radha Khan on 04-24-2024 Immature granulocytes/100 WBC (Bld) 0.700 % 0.0-0.9 [facility] Iron measurement (mass/mass) Ordered By: Radha Khan on 04-24-2024 Iron (Unsp spec) [Mass/Mass] 64 ug/dL Low 65-175 [facility] Iron+Iron Binding Capacityon 04-24-2024 Iron [Mass/Vol] 64 ug/dL Low 65-175 [facility] Comment on above: Performed By: #### L 100.0100, L100.9950, L503.6550, L503.0105, L503.6030 ####[facility] [address] [place], [address] IRON SATURATION 22.8 Normal 15.0-55.0 [facility] Comment on above: Performed By: #### L 100.0100, L100.9950, L503.6550, L503.0105, L503.6030 ####[facility] [address] [place], [address] TIBC 281 ug/dL Normal 250-450 [facility] Comment on above: Performed By: #### L 100.0100, L100.9950, L503.6550, L503.0105, L503.6030 ####[facility] [address] [place], [address] L501.4020on 04-24-2024 TROPONIN-I HS 106 pg/mL High 3.0-78.0 [facility] Comment on above: Order Comment: 'TROP ' Serial specimen #1, #2 or #3: 1 Result Comment: Kodi monterroso Note: New Test Units and Gender Specific Reference Ranges. For more information see Policy Stat Procedure [place] High Sensitivity Troponin (TNIH) and attachments. Performed By: #### L 501.4020 ####[facility] [address] [place], [address] TROPONIN-I HS 190 pg/mL Invalid Interpretation Code 3.0-78.0 [facility] Comment on above: Order Comment: 'TROP ' Serial specimen #1, #2 or #3: 1 Result Comment: Crit ical Result(s) Called at: 16:51:09 04/24/2024 by: SHERYL. Results read back by Rashawn RAMIREZ Please Note: New Test Units and Gender Specific Reference Ranges. For more information see Policy Stat Procedure [place] High Sensitivity Troponin (TNIH) and attachments. Performed By: #### L 500.2500, L300.3900, L300.4310, L100.0100, L501.4020 ####[facility] [address] [place], [address] MCV (mean corpuscular volume ) determinationOrdered By: Radha Khan on 04-24-2024 MCV (RBC) [Entitic vol] 77.6 fL Low 80-94 [facility] Magnesiumon 04-24-2024 Magnesium [Mass/Vol] 2.1 mg/dL Normal 1.6-2.6 [facility] Comment on above: Order Comment: Comme nts: may add to ED labs Performed By: #### L 501.5200 ####[facility] [address] [place], [address] Magnesium measurementOrdered By: Cookie Bell on 04-24-2024 Magnesium [Mass/Vol] 2.1 mg/dL 1.6-2.6 [facility] Mean corpuscular hemoglobin (MCH) determinationOrdered By: Radha Khan on 04-24-2024 MCH (RBC) [Entitic mass] 21.2 pg Low 27.0-32.0 [facility] Monocyte percentageOrdered B y: Radha Khan on 04-24-2024 Monocytes/100 WBC (Bld) 10.2 % High 0-10 [facility] Neutrophil percentageOrdered By: Radha Khan on 04-24-2024 Neutrophils/100 WBC (Bld) 71.7 % High 47-70 [facility] No Panel InformationOrdered By: Daniel Mcneil on 04-24-2024 1+ [facility] No Panel InformationOrdered By: Radha Khan on 04-24-2024 1+ [facility] Ovalocyte detectionOrdered B y: Daniel Mcneil on 04-24-2024 Ovalocytes LM Ql (Bld) 1+ [facility] Ovalocyte detectionOrdered B y: Radha Khan on 04-24-2024 Ovalocytes LM Ql (Bld) 1+ [facility] Partial Thromboplast Timeon 04-24-2024 aPTT Coag (Bld) [Time] 24.8 s Normal 24.1-36.2 [facility] Comment on above: Performed By: #### L 500.2500, L300.3900, L300.4310, L100.0100, L501.4020 ####[facility] [address] [place], [address] Platelet countOrdered By: Armen Khan on 04-24-2024 Platelets (Bld) [#/Vol] 361 10*3/uL 150-450 [facility] Platelet estimateOrdered By: Daniel Mcneil on 04-24-2024 Platelets LM Ql (Bld) ADEQUATE ADEQ [facility] Platelet estimateOrdered By: Radha Khan on 04-24-2024 Platelets LM Ql (Bld) ADEQUATE ADEQ [facility] Prothrombin Time w/INRon INR Coag (PPP) [Relative time] 1.1 {INR} Normal [facility] Comment on above: Performed By: #### L 500.2500, L300.3900, L300.4310, L100.0100, L501.4020 ####[facility] [address] [place], [address] PT Coag (PPP) [Time] 14.4 s Normal 11.7-14.9 [facility] Comment on above: Performed By: #### L 500.2500, L300.3900, L300.4310, L100.0100, L501.4020 ####[facility] [address] [place], [address] Prothrombin timeOrdered By: Daniel Mcneil on 04-24-2024 PT Coag (PPP) [Time] 14.4 s 11.7-14.9 [facility] RBC Auto (Bld) [#/Vol]Ordere d By: Radha Khan on 04-24-2024 RBC (Bld) [#/Vol] 4.25 10*6/uL Low 4.6-6.2 [facility] Retic Panelon 04-24-2024 IM RET FRACTION 18.00 High 3.00-15.90 [facility] Comment on above: Performed By: #### L 100.0100, L100.9950, L503.6550, L503.0105, L503.6030 ####[facility] [address] [place], [address] RET-HE 26.3 pg Low 30-35 [facility] Comment on above: Performed By: #### L 100.0100, L100.9950, L503.6550, L503.0105, L503.6030 ####[facility] [address] [place], [address] Retic Count 1.99 High 0.5-1.5 [facility] Comment on above: Performed By: #### L 100.0100, L100.9950, L503.6550, L503.0105, L503.6030 ####[facility] [address] [place], [address] Reticulocyte hemoglobin equi valent (RET-He) measurementOrdered By: Radha Khan on 04-24-2024 Hemoglobin (Reticulocytes) [Entitic mass] 26.3 pg Low 30-35 [facility] Reticulocytes Auto (Bld) [#/ Vol]Ordered By: Radha Khan on 04-24-2024 Reticulocytes/100 RBC (Bld) 1.99 % High 0.5-1.5 [facility] STROKE Brain/Head without Co nton 04-24-2024 STROKE Brain/Head without Cont Normal [facility] STROKE CTA Head AND Neck W/C onon 04-24-2024 STROKE CTA Head AND Neck W/Con Normal [facility] Serum or plasma iron saturat ion measurement (mass fraction)Ordered By: Radha Khan on 04-24-2024 Iron saturation [Mass fraction] 22.8 % 15.0-55.0 [facility] Vitamin B12 measurementOrder ed By: Radha Khan on 04-24-2024 Cobalamin (Vitamin B12) [Mass/Vol] 572 pg/mL 211-911 [facility] White blood cell (WBC) count Ordered By: Radha Khan on 04-24-2024 WBC (Bld) [#/Vol] 14.1 10*3/uL High 4.4-11.0 [facility] 36on 04-22-2024 36 LVM to let patient k now he is scheduled for surgery and to call back to go over presurgical instructions Normal [facility] 36 Call ref# [id number]. No Prior authorization needed for inpatient 24 hour observation. Normal [facility] Pulmonary Visit Reporton Pulmonary Visit Report Normal [facility] Culture, Blood (WB)on 2024 CUB Blood cultures x2, f rom two different sites No growth in 5 days. Normal [facility] Comment on above: Performed By: #### M 200.1000, M100.636 ####[facility] [address] [place], [address] Endocrinology Visit Reporton 04-16-2024 Endocrinology Visit Report Normal [facility] No Panel Informationon 04-16 7.7 % High 4.2-6.3 [facility] Absolute lymphocyte countOrd ered By: Cuco Soler on 04-15-2024 Lymphocytes Auto (Unsp spec) [#/Vol] 0.77 10*3/uL Low 0.83-4.51 [facility] Automated lymphocyte count a s percentage of total leukocytesOrdered By: Cuco Soler on 04-15-2024 Lymphocytes/100 WBC Auto (Unsp spec) 7.0 % Low 19-41 [facility] Basic Metabolic Profile (BMP )on 04-15-2024 BUN/CRE 29.8 RATIO High 10-20 [facility] Comment on above: Performed By: #### L 100.0100, L500.2500 ####[facility] [address] [place], [address] CA,Total 9.4 mg/dL Normal 8.5-10.1 [facility] Comment on above: Performed By: #### L 100.0100, L500.2500 ####[facility] [address] [place], [address] Chloride [Moles/Vol] 103 mmol/L Normal 98-107 [facility] Comment on above: Performed By: #### L 100.0100, L500.2500 ####[facility] [address] [place], [address] CO2 [Moles/Vol] 24.0 mmol/L Normal 21.0-32.0 [facility] Comment on above: Performed By: #### L 100.0100, L500.2500 ####[facility] [address] [place], [address] Creatinine [Mass/Vol] 1.14 mg/dL Normal 0.70-1.30 [facility] Comment on above: Result Comment: The validity of the calculated GFR GFRAA in patients over70 years has not been determined. Clinical correlation isessential. Performed By: #### L 100.0100, L500.2500 ####[facility] [address] [place], [address] ECRCL 94.72 ml/min Normal [facility] Comment on above: Performed By: #### L 100.0100, L500.2500 ####[facility] [address] [place], [address] EST GFR - AA 84 mL/min Normal >60 [facility] Comment on above: Result Comment: Afri can [place] GFR Calc Performed By: #### L 100.0100, L500.2500 ####[facility] [address] [place], [address] GAP 8 Normal 5-15 [facility] Comment on above: Performed By: #### L 100.0100, L500.2500 ####[facility] [address] [place], [address] GFR/1.73 sq M.predicted among non-blacks MDRD (S/P/Bld) [Vol rate/Area] 70 mL/min/{1.73_m2} Normal >60 [facility] Comment on above: Result Comment: Non- GFR Calc Performed By: #### L 100.0100, L500.2500 ####[facility] [address] [place], [address] Glucose [Mass/Vol] 154 mg/dL High 74-106 [facility] Comment on above: Result Comment: Fast ing Glucose result greater than or equal to 126 mg/dLsuggests DIABETES MELLITUS per A.D.A. criteria. Performed By: #### L 100.0100, L500.2500 ####[facility] [address] [place], [address] Potassium [Moles/Vol] 4.4 mmol/L Normal 3.5-5.1 [facility] Comment on above: Performed By: #### L 100.0100, L500.2500 ####[facility] [address] [place], [address] Sodium [Moles/Vol] 135 mmol/L Low 136-145 [facility] Comment on above: Performed By: #### L 100.0100, L500.2500 ####[facility] [address] [place], [address] Urea nitrogen [Mass/Vol] 34 mg/dL High 7-18 [facility] Comment on above: Performed By: #### L 100.0100, L500.2500 ####[facility] [address] [place], [address] Basophil percentageOrdered B y: Cucogemini Soler on 04-15-2024 Basophils/100 WBC (Bld) 0.1 % 0-1 [facility] CBC W/Diff, Automatedon 04-01 Absolute Lymph 0.77 X10 3/uL Low 0.83-4.51 [facility] Comment on above: Performed By: #### L 100.0100, L500.2500 ####[facility] [address] [place], [address] Absolute Neut 9.9 X10 3/uL High 2.0-7.7 [facility] Comment on above: Performed By: #### L 100.0100, L500.2500 ####[facility] [address] [place], [address] Basophils/100 WBC (Bld) 0.1 % Normal 0-1 [facility] Comment on above: Performed By: #### L 100.0100, L500.2500 ####[facility] [address] [place], [address] Eosinophils/100 WBC (Bld) 0.1 % Normal 0-5 [facility] Comment on above: Performed By: #### L 100.0100, L500.2500 ####[facility] [address] [place], [address] Erythrocyte distribution width (RBC) [Ratio] 19.6 % High 11.6-14.6 [facility] Comment on above: Performed By: #### L 100.0100, L500.2500 ####[facility] [address] [place], [address] Hematocrit (Bld) [Volume fraction] 28.9 % Low 40-54 [facility] Comment on above: Performed By: #### L 100.0100, L500.2500 ####[facility] [address] [place], [address] Hemoglobin (Bld) [Mass/Vol] 8.5 g/dL Low 13.0-16.5 [facility] Comment on above: Performed By: #### L 100.0100, L500.2500 ####[facility] [address] [place], [address] IG% 0.600 Normal 0.0-0.9 [facility] Comment on above: Result Comment: IG% - Immature Granulocytes (promyelocytes, myelocytes andmetamyelocytes) > 1% indicates that a LEFT SHIFT is Present. Performed By: #### L 100.0100, L500.2500 ####[facility] [address] [place], [address] Lymphocytes/100 WBC (Bld) 7.0 % Low 19-41 [facility] Comment on above: Performed By: #### L 100.0100, L500.2500 ####[facility] [address] [place], [address] MCH (RBC) [Entitic mass] 21.8 pg Low 27.0-32.0 [facility] Comment on above: Performed By: #### L 100.0100, L500.2500 ####[facility] [address] [place], [address] MCHC (RBC) [Mass/Vol] 29.4 g/dL Low 32-36 [facility] Comment on above: Performed By: #### L 100.0100, L500.2500 ####[facility] [address] [place], [address] MCV (RBC) [Entitic vol] 74.1 fL Low 80-94 [facility] Comment on above: Performed By: #### L 100.0100, L500.2500 ####[facility] [address] [place], [address] Monocytes/100 WBC (Bld) 2.4 % Normal 0-10 [facility] Comment on above: Performed By: #### L 100.0100, L500.2500 ####[facility] [address] [place], [address] Neutrophils/100 WBC (Bld) 89.8 % High 47-70 [facility] Comment on above: Performed By: #### L 100.0100, L500.2500 ####[facility] [address] [place], [address] Nucleated RBC (Bld) [#/Vol] 0 10*3/uL Normal 0-5 [facility] Comment on above: Performed By: #### L 100.0100, L500.2500 ####[facility] [address] [place], [address] Platelet mean volume (Bld) [Entitic vol] 9.8 fL Normal 6.2-12.0 [facility] Comment on above: Performed By: #### L 100.0100, L500.2500 ####[facility] [address] [place], [address] Platelets (Bld) [#/Vol] 341 10*3/uL Normal 150-450 [facility] Comment on above: Performed By: #### L 100.0100, L500.2500 ####[facility] [address] [place], [address] RBC (Bld) [#/Vol] 3.90 10*6/uL Low 4.6-6.2 [facility] Comment on above: Performed By: #### L 100.0100, L500.2500 ####[facility] [address] [place], [address] RDW SD 52.3 fl High 35.1-43.9 [facility] Comment on above: Performed By: #### L 100.0100, L500.2500 ####[facility] [address] [place], [address] WBC (Bld) [#/Vol] 11.0 10*3/uL Normal 4.4-11.0 [facility] Comment on above: Performed By: #### L 100.0100, L500.2500 ####[facility] [address] [place], [address] Carbon dioxide measurementOr dered By: Cuco Soler on 04-15-2024 CO2 [Moles/Vol] 24.0 mmol/L 21.0-32.0 [facility] Chloride measurementOrdered By: Cuco Soler on 04-15-2024 Chloride [Moles/Vol] 103 mmol/L 98-107 [facility] Discharge Instructionon 04-01 Discharge Instruction Normal [facility] Eosinophil percentageOrdered By: Cuco Soler on 04-15-2024 Eosinophils/100 WBC (Bld) 0.1 % 0-5 [facility] Erythrocyte distribution wid th ratioOrdered By: Cuco Soler on 04-15-2024 Erythrocyte distribution width (RBC) [Ratio] 19.6 % High 11.6-14.6 [facility] Erythrocyte distribution wid th standard deviationOrdered By: Cuco Soler on 04-15-2024 Erythrocyte distribution width (RBC) [Ratio] 52.3 fl High 35.1-43.9 [facility] Glomerular filtration rate ( GFR) estimationOrdered By: Cuco Soler on 04-15-2024 GFR/1.73 sq M.predicted among non-blacks MDRD (S/P/Bld) [Vol rate/Area] 70 mL/min/{1.73_m2} >60 [facility] Glucose measurementOrdered B y: Cuco Soler on 04-15-2024 Glucose [Mass/Vol] 154 mg/dL High 74-106 [facility] Hematocrit Auto (Bld) [Volum e fraction]Ordered By: Cuco Soler on 04-15-2024 Hematocrit (Bld) [Volume fraction] 28.9 % Low 40-54 [facility] Hemoglobin measurementOrdere d By: Cuco Soler on 04-15-2024 Hemoglobin (Bld) [Mass/Vol] 8.5 g/dL Low 13.0-16.5 [facility] Immature granulocytes/100 WB C Auto (Bld)Ordered By: Cuco Soler on 04-15-2024 Immature granulocytes/100 WBC (Bld) 0.600 % 0.0-0.9 [facility] MCV (mean corpuscular volume ) determinationOrdered By: Cuco Soler on 04-15-2024 MCV (RBC) [Entitic vol] 74.1 fL Low 80-94 [facility] Mean corpuscular hemoglobin (MCH) determinationOrdered By: Cuco Soler on 04-15-2024 MCH (RBC) [Entitic mass] 21.8 pg Low 27.0-32.0 [facility] Monocyte percentageOrdered B y: Cuco Soler on 04-15-2024 Monocytes/100 WBC (Bld) 2.4 % 0-10 [facility] Neutrophil percentageOrdered By: Cuco Soler on 04-15-2024 Neutrophils/100 WBC (Bld) 89.8 % High 47-70 [facility] Platelet countOrdered By: Dorian Soler on 01-15-2025 Platelets (Bld) [#/Vol] 341 10*3/uL 150-450 [facility] Potassium measurementOrdered By: Cuco Soler on 04-15-2024 Potassium [Moles/Vol] 4.4 mmol/L 3.5-5.1 [facility] RBC Auto (Bld) [#/Vol]Ordere d By: Cuco Soler on 04-15-2024 RBC (Bld) [#/Vol] 3.90 10*6/uL Low 4.6-6.2 [facility] Serum or plasma calcium grazyna urement (mass/volume)Ordered By: Cuco Soler on 04-15-2024 Calcium [Mass/Vol] 9.4 mg/dL 8.5-10.1 [facility] Serum or plasma creatinine m easurement (mass/volume)Ordered By: Cuco Soler on 04-15-2024 Creatinine [Mass/Vol] 1.14 mg/dL 0.70-1.30 [facility] Serum or plasma urea nitroge n measurement (mass/volume)Ordered By: Cuco Soler on 04-15-2024 Urea nitrogen [Mass/Vol] 34 mg/dL High 7-18 [facility] Sodium levelOrdered By: Caitie Soler on 04-15-2024 Sodium [Moles/Vol] 135 mmol/L Low 136-145 [facility] White blood cell (WBC) count Ordered By: Cuco Soler on 04-15-2024 WBC (Bld) [#/Vol] 11.0 10*3/uL 4.4-11.0 [facility] BC GPC IDon 04-14-2024 GPC ID Normal [facility] Comment on above: Performed By: #### M 200.1000, M100.636 ####[facility] [address] [place], [place], [id number] Basic Metabolic Profile (BMP )on 04-14-2024 BUN/CRE 20.1 RATIO High 10-20 [facility] Comment on above: Performed By: #### L 501.5200, L100.0100, L500.2500, L500.3400, L501.2300 ####[facility] [address] [place], [address] CA,Total 9.0 mg/dL Normal 8.5-10.1 [facility] Comment on above: Performed By: #### L 501.5200, L100.0100, L500.2500, L500.3400, L501.2300 ####[facility] [address] [place], [address] Chloride [Moles/Vol] 100 mmol/L Normal 98-107 [facility] Comment on above: Performed By: #### L 501.5200, L100.0100, L500.2500, L500.3400, L501.2300 ####[facility] [address] [place], [address] CO2 [Moles/Vol] 26.0 mmol/L Normal 21.0-32.0 [facility] Comment on above: Performed By: #### L 501.5200, L100.0100, L500.2500, L500.3400, L501.2300 ####[facility] [address] [place], [address] Creatinine [Mass/Vol] 1.49 mg/dL High 0.70-1.30 [facility] Comment on above: Result Comment: The validity of the calculated GFR GFRAA in patients over70 years has not been determined. Clinical correlation isessential. Performed By: #### L 501.5200, L100.0100, L500.2500, L500.3400, L501.2300 ####[facility] [address] [place], [address] ECRCL 73.51 ml/min Normal [facility] Comment on above: Performed By: #### L 501.5200, L100.0100, L500.2500, L500.3400, L501.2300 ####[facility] [address] [place], [address] EST GFR - AA 62 mL/min Normal >60 [facility] Comment on above: Result Comment: Afri can [place] GFR Calc Performed By: #### L 501.5200, L100.0100, L500.2500, L500.3400, L501.2300 ####[facility] [address] [place], [address] GAP 6 Normal 5-15 [facility] Comment on above: Performed By: #### L 501.5200, L100.0100, L500.2500, L500.3400, L501.2300 ####[facility] [address] [place], [address] GFR/1.73 sq M.predicted among non-blacks MDRD (S/P/Bld) [Vol rate/Area] 51 mL/min/{1.73_m2} Low >60 [facility] Comment on above: Result Comment: Non- GFR Calc Performed By: #### L 501.5200, L100.0100, L500.2500, L500.3400, L501.2300 ####[facility] [address] [place], [address] Glucose [Mass/Vol] 272 mg/dL High 74-106 [facility] Comment on above: Result Comment: Gluc ose result greater than or equal to 200 mg/dLsuggests DIABETES MELLITUS per A.D.A. criteria. Performed By: #### L 501.5200, L100.0100, L500.2500, L500.3400, L501.2300 ####[facility] [address] [place], [address] Potassium [Moles/Vol] 4.0 mmol/L Normal 3.5-5.1 [facility] Comment on above: Performed By: #### L 501.5200, L100.0100, L500.2500, L500.3400, L501.2300 ####[facility] [address] [place], [address] Sodium [Moles/Vol] 132 mmol/L Low 136-145 [facility] Comment on above: Performed By: #### L 501.5200, L100.0100, L500.2500, L500.3400, L501.2300 ####[facility] [address] [place], [address] Urea nitrogen [Mass/Vol] 30 mg/dL High 7-18 [facility] Comment on above: Performed By: #### L 501.5200, L100.0100, L500.2500, L500.3400, L501.2300 ####[facility] [address] [place], [address] Bedside Glucoseon 04-14-2024 FINGERSTICK GLU 259 mg/dL High 74-106 [facility] Comment on above: Result Comment: ANI BRADFORD OF PATIENT CARE PER NURSING PROTOCOL Performed By: #### L 501.080 ####[facility] [address] [place], [address] Bilirubin directOrdered By: Cuco Soler on 04-14-2024 Bilirubin.direct [Mass/Vol] 0.20 mg/dL 0.00-0.30 [facility] Bilirubin, totalOrdered By: Cuco Soler on 04-14-2024 Bilirubin [Mass/Vol] 0.80 mg/dL 0.20-1.00 [facility] CBC W/Diff, Automatedon 04-01 Absolute Lymph 0.42 X10 3/uL Low 0.83-4.51 [facility] Comment on above: Performed By: #### L 501.5200, L100.0100, L500.2500, L500.3400, L501.2300 ####[facility] [address] [place], [address] Absolute Neut 7.9 X10 3/uL High 2.0-7.7 [facility] Comment on above: Performed By: #### L 501.5200, L100.0100, L500.2500, L500.3400, L501.2300 ####[facility] [address] [place], [address] Basophils/100 WBC (Bld) 0.2 % Normal 0-1 [facility] Comment on above: Performed By: #### L 501.5200, L100.0100, L500.2500, L500.3400, L501.2300 ####[facility] [address] [place], [address] Eosinophils/100 WBC (Bld) 0.0 % Normal 0-5 [facility] Comment on above: Performed By: #### L 501.5200, L100.0100, L500.2500, L500.3400, L501.2300 ####[facility] [address] [place], [address] Erythrocyte distribution width (RBC) [Ratio] 19.9 % High 11.6-14.6 [facility] Comment on above: Performed By: #### L 501.5200, L100.0100, L500.2500, L500.3400, L501.2300 ####[facility] [address] [place], [address] Hematocrit (Bld) [Volume fraction] 28.7 % Low 40-54 [facility] Comment on above: Performed By: #### L 501.5200, L100.0100, L500.2500, L500.3400, L501.2300 ####[facility] [address] [place], [address] Hemoglobin (Bld) [Mass/Vol] 8.4 g/dL Low 13.0-16.5 [facility] Comment on above: Performed By: #### L 501.5200, L100.0100, L500.2500, L500.3400, L501.2300 ####[facility] [address] [place], [address] IG% 0.500 Normal 0.0-0.9 [facility] Comment on above: Result Comment: IG% - Immature Granulocytes (promyelocytes, myelocytes andmetamyelocytes) > 1% indicates that a LEFT SHIFT is Present. Performed By: #### L 501.5200, L100.0100, L500.2500, L500.3400, L501.2300 ####[facility] [address] [place], [address] Lymphocytes/100 WBC (Bld) 4.9 % Low 19-41 [facility] Comment on above: Performed By: #### L 501.5200, L100.0100, L500.2500, L500.3400, L501.2300 ####[facility] [address] [place], [address] MCH (RBC) [Entitic mass] 21.8 pg Low 27.0-32.0 [facility] Comment on above: Performed By: #### L 501.5200, L100.0100, L500.2500, L500.3400, L501.2300 ####[facility] [address] [place], [address] MCHC (RBC) [Mass/Vol] 29.3 g/dL Low 32-36 [facility] Comment on above: Performed By: #### L 501.5200, L100.0100, L500.2500, L500.3400, L501.2300 ####[facility] [address] [place], [address] MCV (RBC) [Entitic vol] 74.4 fL Low 80-94 [facility] Comment on above: Performed By: #### L 501.5200, L100.0100, L500.2500, L500.3400, L501.2300 ####[facility] [address] [place], [address] Monocytes/100 WBC (Bld) 1.9 % Normal 0-10 [facility] Comment on above: Performed By: #### L 501.5200, L100.0100, L500.2500, L500.3400, L501.2300 ####[facility] [address] [place], [address] Neutrophils/100 WBC (Bld) 92.5 % High 47-70 [facility] Comment on above: Performed By: #### L 501.5200, L100.0100, L500.2500, L500.3400, L501.2300 ####[facility] [address] [place], [address] Nucleated RBC (Bld) [#/Vol] 0.2 10*3/uL Normal 0-5 [facility] Comment on above: Performed By: #### L 501.5200, L100.0100, L500.2500, L500.3400, L501.2300 ####[facility] [address] [place], [address] Platelet mean volume (Bld) [Entitic vol] 10.0 fL Normal 6.2-12.0 [facility] Comment on above: Performed By: #### L 501.5200, L100.0100, L500.2500, L500.3400, L501.2300 ####[facility] [address] [place], [address] Platelets (Bld) [#/Vol] 322 10*3/uL Normal 150-450 [facility] Comment on above: Performed By: #### L 501.5200, L100.0100, L500.2500, L500.3400, L501.2300 ####[facility] [address] [place], [address] RBC (Bld) [#/Vol] 3.86 10*6/uL Low 4.6-6.2 [facility] Comment on above: Performed By: #### L 501.5200, L100.0100, L500.2500, L500.3400, L501.2300 ####[facility] [address] [place], [address] RDW SD 53.1 fl High 35.1-43.9 [facility] Comment on above: Performed By: #### L 501.5200, L100.0100, L500.2500, L500.3400, L501.2300 ####[facility] [address] [place], [address] WBC (Bld) [#/Vol] 8.6 10*3/uL Normal 4.4-11.0 [facility] Comment on above: Performed By: #### L 501.5200, L100.0100, L500.2500, L500.3400, L501.2300 ####[facility] [address] 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, [address] ALK P 77 U/L Normal 45-117 [facility] Comment on above: Performed By: #### L 501.5200, L100.0100, L500.2500, L500.3400, L501.2300 ####[facility] [address] [place], [address] ALT [Catalytic activity/Vol] 19 U/L Normal 16-61 [facility] Comment on above: Performed By: #### L 501.5200, L100.0100, L500.2500, L500.3400, L501.2300 ####[facility] [address] [place], [address] AST [Catalytic activity/Vol] 16 U/L Normal 15-37 [facility] Comment on above: Performed By: #### L 501.5200, L100.0100, L500.2500, L500.3400, L501.2300 ####[facility] [address] [place], [address] Bilirubin [Mass/Vol] 0.80 mg/dL Normal 0.20-1.00 [facility] Comment on above: Result Comment: For patients on eltrombopag therapy, use of Dimension [place] TBIL is not recommended. Performed By: #### L 501.5200, L100.0100, L500.2500, L500.3400, L501.2300 ####[facility] [address] [place], [address] Bilirubin.direct [Mass/Vol] 0.20 mg/dL Normal 0.00-0.30 [facility] Comment on above: Performed By: #### L 501.5200, L100.0100, L500.2500, L500.3400, L501.2300 ####[facility] [address] [place], [address] Globulin (S) [Mass/Vol] 5.6 g/dL High 2.2-4.2 [facility] Comment on above: Performed By: #### L 501.5200, L100.0100, L500.2500, L500.3400, L501.2300 ####[facility] [address] [place], [address] T PROT 8.3 g/dL High 6.4-8.2 [facility] Comment on above: Performed By: #### L 501.5200, L100.0100, L500.2500, L500.3400, L501.2300 ####[facility] [address] [place], [address] M8200.1000on 04-14-2024 M8200.1000 Normal Reference Ran ge = Negative MRSA DNA Nose Ql FLORES+probe GeneXpert Instrument, PCR method MRSA PCR MRSA NEGATIVE Normal [facility] Comment on above: Performed By: #### M 8200.1000, M300.4600 ####[facility] [address] [place], [address] Magnesiumon 04-14-2024 Magnesium [Mass/Vol] 2.5 mg/dL Normal 1.6-2.6 [facility] Comment on above: Performed By: #### L 501.5200, L100.0100, L500.2500, L500.3400, L501.2300 ####[facility] [address] [place], [address] Magnesium measurementOrdered By: Cuco Soler on 04-14-2024 Magnesium [Mass/Vol] 2.5 mg/dL 1.6-2.6 [facility] Nasal methicillin resistant Staphylococcus aureus (MRSA) DNA detection by PCROrdered By: Cuco Soler on 04-14-2024 MRSA DNA FLORES+probe Ql (Nose) [facility] No Panel InformationOrdered By: Cuco Soler on 04-14-2024 16 U/L 15-37 [facility] Phosphoruson 04-14-2024 Phosphate [Mass/Vol] 4.4 mg/dL Normal 2.5-4.9 [facility] Comment on above: Performed By: #### L 501.5200, L100.0100, L500.2500, L500.3400, L501.2300 ####[facility] [address] [place], [place], [address] Procalcitoninon 04-14-2024 Procalcitonin 0.18 ng/mL High 0.00-0.09 [facility] Comment on above: Result Comment: A [...] are obtained. Performed By: #### L 509.7000 ####[facility] [address] [facility] [place], [place], [address] Serum globulin measurementOr dered By: Cuco Soler on 04-14-2024 Globulin (S) [Mass/Vol] 5.6 g/dL High 2.2-4.2 [facility] Serum or plasma alanine briscoe otransferase (ALT) measurementOrdered By: Cuco Soler on 04-14-2024 ALT [Catalytic activity/Vol] 19 U/L 16-61 [facility] Serum or plasma albumin grazyna urement (mass/volume)Ordered By: Cuco Soler on 04-14-2024 Albumin [Mass/Vol] 2.7 g/dL Low 3.2-5.0 [facility] Serum or plasma alkaline benjamin sphatase measurementOrdered By: Cuco Soler on 04-14-2024 ALP [Catalytic activity/Vol] 77 U/L 45-117 [facility] Serum procalcitonin measurem entOrdered By: Fran Rodriguez on 04-14-2024 Procalcitonin [Mass/Vol] 0.18 ng/mL High 0.00-0.09 [facility] Strep pneumoniae Antig(UR,CS F)on 04-14-2024 STPAG Normal [facility] Comment on above: Performed By: #### M 8200.1000, M300.4600 ####[facility] [address] [place], [address] Total proteinOrdered By: Wilder Soler on 04-14-2024 Protein [Mass/Vol] 8.3 g/dL High 6.4-8.2 [facility] 6 Minute Walk Teston 025 6 Minute Walk Test Normal [facility] Basic Metabolic Profile (BMP )on 04-13-2024 BUN/CRE 17.1 RATIO Normal 10-20 [facility] Comment on above: Performed By: #### L 501.5200, L500.2500, L501.2300, L100.0100 ####[facility] [address] [place], [address] CA,Total 8.9 mg/dL Normal 8.5-10.1 [facility] Comment on above: Performed By: #### L 501.5200, L500.2500, L501.2300, L100.0100 ####[facility] [address] [place], [address] Chloride [Moles/Vol] 101 mmol/L Normal 98-107 [facility] Comment on above: Performed By: #### L 501.5200, L500.2500, L501.2300, L100.0100 ####[facility] [address] [place], [address] CO2 [Moles/Vol] 27.0 mmol/L Normal 21.0-32.0 [facility] Comment on above: Performed By: #### L 501.5200, L500.2500, L501.2300, L100.0100 ####[facility] [address] [place], [address] Creatinine [Mass/Vol] 1.17 mg/dL Normal 0.70-1.30 [facility] Comment on above: Result Comment: The validity of the calculated GFR GFRAA in patients over70 years has not been determined. Clinical correlation isessential. Performed By: #### L 501.5200, L500.2500, L501.2300, L100.0100 ####[facility] [address] [place], [address] ECRCL 93.62 ml/min Normal [facility] Comment on above: Performed By: #### L 501.5200, L500.2500, L501.2300, L100.0100 ####[facility] [address] [place], [address] EST GFR - AA 82 mL/min Normal >60 [facility] Comment on above: Result Comment: Afri can [place] GFR Calc Performed By: #### L 501.5200, L500.2500, L501.2300, L100.0100 ####[facility] [address] [place], [address] GAP 6 Normal 5-15 [facility] Comment on above: Performed By: #### L 501.5200, L500.2500, L501.2300, L100.0100 ####[facility] [address] [place], [address] GFR/1.73 sq M.predicted among non-blacks MDRD (S/P/Bld) [Vol rate/Area] 67 mL/min/{1.73_m2} Normal >60 [facility] Comment on above: Result Comment: Non- GFR Calc Performed By: #### L 501.5200, L500.2500, L501.2300, L100.0100 ####[facility] [address] [place], [address] Glucose [Mass/Vol] 193 mg/dL High 74-106 [facility] Comment on above: Result Comment: Fast ing Glucose result greater than or equal to 126 mg/dLsuggests DIABETES MELLITUS per A.D.A. criteria. Performed By: #### L 501.5200, L500.2500, L501.2300, L100.0100 ####[facility] [address] [place], [address] Potassium [Moles/Vol] 3.6 mmol/L Normal 3.5-5.1 [facility] Comment on above: Performed By: #### L 501.5200, L500.2500, L501.2300, L100.0100 ####[facility] [address] [place], [address] Sodium [Moles/Vol] 134 mmol/L Low 136-145 [facility] Comment on above: Performed By: #### L 501.5200, L500.2500, L501.2300, L100.0100 ####[facility] [address] [place], [address] Urea nitrogen [Mass/Vol] 20 mg/dL High 7-18 [facility] Comment on above: Performed By: #### L 501.5200, L500.2500, L501.2300, L100.0100 ####[facility] [address] [place], [address] Bedside Glucoseon 04-13-2024 FINGERSTICK GLU 190 mg/dL High 74-106 [facility] Comment on above: Result Comment: ANI SUZETTE OF PATIENT CARE PER NURSING PROTOCOL Performed By: #### L 501.080 ####[facility] [address] [place], [address] CBC W/Diff, Automatedon 04-01 Absolute Lymph 1.53 X10 3/uL Normal 0.83-4.51 [facility] Comment on above: Performed By: #### L 501.5200, L500.2500, L501.2300, L100.0100 ####[facility] [address] [place], [address] Absolute Neut 7.3 X10 3/uL Normal 2.0-7.7 [facility] Comment on above: Performed By: #### L 501.5200, L500.2500, L501.2300, L100.0100 ####[facility] [facility] [address] [place], [address] Basophils/100 WBC (Bld) 0.5 % Normal 0-1 [facility] Comment on above: Performed By: #### L 501.5200, L500.2500, L501.2300, L100.0100 ####[facility] [address] [place], [address] Eosinophils/100 WBC (Bld) 3.7 % Normal 0-5 [facility] Comment on above: Performed By: #### L 501.5200, L500.2500, L501.2300, L100.0100 ####[facility] [address] [place], [address] Erythrocyte distribution width (RBC) [Ratio] 19.9 % High 11.6-14.6 [facility] Comment on above: Performed By: #### L 501.5200, L500.2500, L501.2300, L100.0100 ####[facility] [address] [place], [address] Hematocrit (Bld) [Volume fraction] 26.7 % Low 40-54 [facility] Comment on above: Performed By: #### L 501.5200, L500.2500, L501.2300, L100.0100 ####[facility] [address] [place], [address] Hemoglobin (Bld) [Mass/Vol] 7.7 g/dL Low 13.0-16.5 [facility] Comment on above: Performed By: #### L 501.5200, L500.2500, L501.2300, L100.0100 ####[facility] [address] [place], [address] IG% 0.300 Normal 0.0-0.9 [facility] Comment on above: Result Comment: IG% - Immature Granulocytes (promyelocytes, myelocytes andmetamyelocytes) > 1% indicates that a LEFT SHIFT is Present. Performed By: #### L 501.5200, L500.2500, L501.2300, L100.0100 ####[facility] [address] [place], [address] Lymphocytes/100 WBC (Bld) 14.9 % Low 19-41 [facility] Comment on above: Performed By: #### L 501.5200, L500.2500, L501.2300, L100.0100 ####[facility] [address] [place], [address] MCH (RBC) [Entitic mass] 21.6 pg Low 27.0-32.0 [facility] Comment on above: Performed By: #### L 501.5200, L500.2500, L501.2300, L100.0100 ####[facility] [address] [place], [address] MCHC (RBC) [Mass/Vol] 28.8 g/dL Low 32-36 [facility] Comment on above: Performed By: #### L 501.5200, L500.2500, L501.2300, L100.0100 ####[facility] [address] [place], [address] MCV (RBC) [Entitic vol] 74.8 fL Low 80-94 [facility] Comment on above: Performed By: #### L 501.5200, L500.2500, L501.2300, L100.0100 ####[facility] [address] [place], [address] Monocytes/100 WBC (Bld) 9.8 % Normal 0-10 [facility] Comment on above: Performed By: #### L 501.5200, L500.2500, L501.2300, L100.0100 ####[facility] [address] [place], [address] Neutrophils/100 WBC (Bld) 70.8 % High 47-70 [facility] Comment on above: Performed By: #### L 501.5200, L500.2500, L501.2300, L100.0100 ####[facility] [address] [place], [address] Nucleated RBC (Bld) [#/Vol] 0 10*3/uL Normal 0-5 [facility] Comment on above: Performed By: #### L 501.5200, L500.2500, L501.2300, L100.0100 ####[facility] [address] [place], [address] Platelet mean volume (Bld) [Entitic vol] 9.6 fL Normal 6.2-12.0 [facility] Comment on above: Performed By: #### L 501.5200, L500.2500, L501.2300, L100.0100 ####[facility] [address] [place], [address] Platelets (Bld) [#/Vol] 289 10*3/uL Normal 150-450 [facility] Comment on above: Performed By: #### L 501.5200, L500.2500, L501.2300, L100.0100 ####[facility] [address] [place], [address] RBC (Bld) [#/Vol] 3.57 10*6/uL Low 4.6-6.2 [facility] Comment on above: Performed By: #### L 501.5200, L500.2500, L501.2300, L100.0100 ####[facility] [address] [place], [address] RDW SD 53.8 fl High 35.1-43.9 [facility] Comment on above: Performed By: #### L 501.5200, L500.2500, L501.2300, L100.0100 ####[facility] [address] [place], [address] WBC (Bld) [#/Vol] 10.3 10*3/uL Normal 4.4-11.0 [facility] Comment on above: Performed By: #### L 501.5200, L500.2500, L501.2300, L100.0100 ####[facility] [address] [place], [address] Chest without Contraston Chest without Contrast Normal [facility] Legionella Antigen Urineon 0 04-13-2024 LEGU Normal [facility] Comment on above: Performed By: #### M 300.4500 ####[facility] [address] [place], [address] Magnesiumon 04-13-2024 Magnesium [Mass/Vol] 2.3 mg/dL Normal 1.6-2.6 [facility] Comment on above: Performed By: #### L 501.5200, L500.2500, L501.2300, L100.0100 ####[facility] [address] [place], [address] Phosphoruson 04-13-2024 Phosphate [Mass/Vol] 4.4 mg/dL Normal 2.5-4.9 [facility] Comment on above: Performed By: #### L 501.5200, L500.2500, L501.2300, L100.0100 ####[facility] [address] [place], [address] RESPIRATORY PANEL MOLECULARo n 04-13-2024 RP PANEL Normal [facility] Comment on above: Performed By: #### M 100.638 ####[facility] [address] [place], [address] Respiratory pathogens detect ion panel by molecular detection methodOrdered By: Cuco Soler on 04-13-2024 Respiratory pathogens DNA and RNA panel FLORES+probe (Resp) [facility] Urine Legionella pneumophila antigen detectionOrdered By: Cuco Soler on 04-13-2024 L. pneumophila Ag Ql (U) [facility] 12 Lead EKGon 04-12-2024 12 Lead EKG Normal [facility] BNP (brain natriuretic pepti de measurement)Ordered By: Luli Alex on 04-12-2024 Natriuretic peptide B (Bld) [Mass/Vol] 124.0 pg/mL High 0-100 [facility] BNP,B-Type NATRIURETIC PEPTI Sindy 04-12-2024 Natriuretic peptide B (Bld) [Mass/Vol] 124.0 pg/mL High 0-100 [facility] Comment on above: Performed By: #### L 500.2500, L503.6620, L100.0100 ####[facility] [address] [place], [address] Basic Metabolic Profile (BMP )on 04-12-2024 BUN/CRE 16.5 RATIO Normal 10-20 [facility] Comment on above: Order Comment: RED W. PREVIOUS SPECIMEN REJECTED DUE TOHEMOLYSIS. 04/12/24 1220 Luiz Sandoval.1 Performed By: #### L 500.2500, L501.4020 ####[facility] [address] [place], [address] CA,Total 9.4 mg/dL Normal 8.5-10.1 [facility] Comment on above: Order Comment: RED W. PREVIOUS SPECIMEN REJECTED DUE TOHEMOLYSIS. 04/12/24 1220 Luiz Sandoval.1 Performed By: #### L 500.2500, L501.4020 ####[facility] [address] [place], [address] Chloride [Moles/Vol] 105 mmol/L Normal 98-107 [facility] Comment on above: Order Comment: REDRA W. PREVIOUS SPECIMEN REJECTED DUE TOHEMOLYSIS. 04/12/241219 Luiz Sandoval.1 Performed By: #### L 500.2500, L501.4020 ####[facility] [address] [place], [address] CO2 [Moles/Vol] 26.0 mmol/L Normal 21.0-32.0 [facility] Comment on above: Order Comment: REDRA W. PREVIOUS SPECIMEN REJECTED DUE TOHEMOLYSIS. 04/12/241219 Luiz Sandoval.1 Performed By: #### L 500.2500, L501.4020 ####[facility] [address] [place], [address] Creatinine [Mass/Vol] 0.97 mg/dL Normal 0.70-1.30 [facility] Comment on above: Order Comment: REDRA W. PREVIOUS SPECIMEN REJECTED DUE TOHEMOLYSIS. 04/12/241219 Luiz Sandoval.1 Result Comment: The validity of the calculated GFR GFRAA in patients over70 years has not been determined. Clinical correlation isessential. Performed By: #### L 500.2500, L501.4020 ####[facility] [address] [place], [address] EST GFR - AA 101 mL/min Normal >60 [facility] Comment on above: Order Comment: REDRA W. PREVIOUS SPECIMEN REJECTED DUE TOHEMOLYSIS. 04/12/241219 Luiz Sandoval.1 Result Comment: Afri can [place] GFR Calc Performed By: #### L 500.2500, L501.4020 ####[facility] [address] [place], [address] GAP 3 Low 5-15 [facility] Comment on above: Order Comment: REDRA W. PREVIOUS SPECIMEN REJECTED DUE TOHEMOLYSIS. 04/12/24 1220 Luiz Sandoval.1 Performed By: #### L 500.2500, L501.4020 ####[facility] [address] [place], [address] GFR/1.73 sq M.predicted among non-blacks MDRD (S/P/Bld) [Vol rate/Area] 84 mL/min/{1.73_m2} Normal >60 [facility] Comment on above: Order Comment: REDRA W. PREVIOUS SPECIMEN REJECTED DUE TOHEMOLYSIS. 04/12/24 1220 Liuz Sandoval.1 Result Comment: Non- GFR Calc Performed By: #### L 500.2500, L501.4020 ####[facility] [address] [place], [address] Glucose [Mass/Vol] 124 mg/dL High 74-106 [facility] Comment on above: Order Comment: REDRA W. PREVIOUS SPECIMEN REJECTED DUE TOHEMOLYSIS. 04/12/24 1220 Luiz Sandoval.1 Result Comment: Fast ing Glucose result from 100 to 125 mg/dLsuggests IMPAIRED HOMEOSTASIS per A.D.A. criteria. Performed By: #### L 500.2500, L501.4020 ####[facility] [address] [place], [address] Potassium [Moles/Vol] 3.7 mmol/L Normal 3.5-5.1 [facility] Comment on above: Order Comment: REDRA W. PREVIOUS SPECIMEN REJECTED DUE TOHEMOLYSIS. 04/12/24 1220 Luiz Sandoval.1 Performed By: #### L 500.2500, L501.4020 ####[facility] [address] [place], [address] Sodium [Moles/Vol] 134 mmol/L Low 136-145 [facility] Comment on above: Order Comment: REDRA W. PREVIOUS SPECIMEN REJECTED DUE TOHEMOLYSIS. 04/12/24 1220 Luiz Sandoval.1 Performed By: #### L 500.2500, L501.4020 ####[facility] [address] [place], [address] Urea nitrogen [Mass/Vol] 16 mg/dL Normal 7-18 [facility] Comment on above: Order Comment: NEETU Giles. PREVIOUS SPECIMEN REJECTED DUE TOHEMOLYSIS. 04/12/24 1220 Luiz Sandoval.1 Performed By: #### L 500.2500, L501.4020 ####[facility] [address] [place], [address] BUN Normal 7-18 [facility] Comment on above: Order Comment: 'TROP ' Serial specimen #1, #2 or #3: 1 Result Comment: This specimen has been REJECTED due to Laboratory criteria:Hemolyzed.LORILIE has been notified of need of recollection.04/12/241217 Luiz Sandoval Performed By: #### L 500.2500, L503.6620, L100.0100 ####[facility] [address] [place], [address] BUN/CRE Normal 10-20 [facility] Comment on above: Order Comment: 'TROP ' Serial specimen #1, #2 or #3: 1 Result Comment: This specimen has been REJECTED due to Laboratory criteria:Hemolyzed.LORILIE has been notified of need of recollection.04/12/24 1218 Luiz Sandoval Performed By: #### L 500.2500, L503.6620, L100.0100 ####[facility] [address] [place], [address] CA,Total Normal 8.5-10.1 [facility] Comment on above: Order Comment: 'TROP ' Serial specimen #1, #2 or #3: 1 Result Comment: This specimen has been REJECTED due to Laboratory criteria:Hemolyzed.LORILIE has been notified of need of recollection.04/12/24 1218 Luiz Sandoval Performed By: #### L 500.2500, L503.6620, L100.0100 ####[facility] [address] [place], [address] CL Normal 98-107 [facility] Comment on above: Order Comment: 'TROP ' Serial specimen #1, #2 or #3: 1 Result Comment: This specimen has been REJECTED due to Laboratory criteria:Hemolyzed.PORSCHE has been notified of need of recollection.04/12/24 1218 Luiz Sandoval Performed By: #### L 500.2500, L503.6620, L100.0100 ####[facility] [address] [place], [address] CO2 Normal 21.0-32.0 [facility] Comment on above: Order Comment: 'TROP ' Serial specimen #1, #2 or #3: 1 Result Comment: This specimen has been REJECTED due to Laboratory criteria:Hemolyzed.PORSCHE has been notified of need of recollection.04/12/24 1218 Luiz Sandoval Performed By: #### L 500.2500, L503.6620, L100.0100 ####[facility] [address] [place], [address] CREAT,SERUM Normal 0.70-1.30 [facility] Comment on above: Order Comment: 'TROP ' Serial specimen #1, #2 or #3: 1 Result Comment: This specimen has been REJECTED due to Laboratory criteria:Hemolyzed.PORSCHE has been notified of need of recollection.04/12/24 1218 Luiz Sandoval Performed By: #### L 500.2500, L503.6620, L100.0100 ####[facility] [address] [place], [address] EST GFR Normal >60 [facility] Comment on above: Order Comment: 'TROP ' Serial specimen #1, #2 or #3: 1 Result Comment: This specimen has been REJECTED due to Laboratory criteria:Hemolyzed.PORSCHE has been notified of need of recollection.04/12/24 1218 Luiz Sandoval Performed By: #### L 500.2500, L503.6620, L100.0100 ####[facility] [address] [place], [address] EST GFR - AA Normal >60 [facility] Comment on above: Order Comment: 'TROP ' Serial specimen #1, #2 or #3: 1 Result Comment: This specimen has been REJECTED due to Laboratory criteria:Hemolyzed.PORSCHE has been notified of need of recollection.04/12/24 1218 Luiz Sandoval Performed By: #### L 500.2500, L503.6620, L100.0100 ####[facility] [address] [place], [address] GAP Normal 5-15 [facility] Comment on above: Order Comment: 'TROP ' Serial specimen #1, #2 or #3: 1 Result Comment: This specimen has been REJECTED due to Laboratory criteria:Hemolyzed.PORSCHE has been notified of need of recollection.04/12/24 1218 Luiz Sandoval Performed By: #### L 500.2500, L503.6620, L100.0100 ####[facility] [address] [place], [address] GLU Normal 74-106 [facility] Comment on above: Order Comment: 'TROP ' Serial specimen #1, #2 or #3: 1 Result Comment: This specimen has been REJECTED due to Laboratory criteria:Hemolyzed.PORSCHE has been notified of need of recollection.04/12/24 1218 Luiz Sandoval Performed By: #### L 500.2500, L503.6620, L100.0100 ####[facility] [address] [place], [address] Potassium Normal 3.5-5.1 [facility] Comment on above: Order Comment: 'TROP ' Serial specimen #1, #2 or #3: 1 Result Comment: This specimen has been REJECTED due to Laboratory criteria:Hemolyzed.PORSCHE has been notified of need of recollection.01/12/25 1218 Luiz Sandoval Performed By: #### L 500.2500, L503.6620, L100.0100 ####[facility] [address] [place], [address] Basic Metabolic Profile (BMP) Normal 136-145 [facility] Comment on above: Order Comment: 'TROP ' Serial specimen #1, #2 or #3: 1 Result Comment: This specimen has been REJECTED due to Laboratory criteria:Hemolyzed.PORSCHE has been notified of need of recollection.04/12/24 1218 Luiz Sandoval Performed By: #### L 500.2500, L503.6620, L100.0100 ####[facility] [address] [place], [address] Bedside Glucoseon 04-12-2024 FINGERSTICK GLU 161 mg/dL High 74-106 [facility] Comment on above: Result Comment: ANI GEMENT OF PATIENT CARE PER NURSING PROTOCOL Performed By: #### L 501.080 ####[facility] [address] [place], [address] FINGERSTICK GLU 159 mg/dL High 74-106 [facility] Comment on above: Result Comment: ANI GEMENT OF PATIENT CARE PER NURSING PROTOCOL Performed By: #### L 501.080 ####[facility] [address] [place], [address] Blood cultureOrdered By: Katherin Alex on 04-12-2024 Bacteria identified Cx Nom (Bld) No growth in 5 days. [facility] Bacteria identified Cx Nom (Bld) Presumptive Micrococcus spp. Abnormal [facility] CBC W/Diff, Automatedon 04-01 Absolute Lymph 0.90 X10 3/uL Normal 0.83-4.51 [facility] Comment on above: Performed By: #### L 100.0100 ####[facility] [address] [place], [address] Absolute Neut 9.6 X10 3/uL High 2.0-7.7 [facility] Comment on above: Performed By: #### L 100.0100 ####[facility] [address] [place], [address] Basophils/100 WBC (Bld) 0.3 % Normal 0-1 [facility] Comment on above: Performed By: #### L 100.0100 ####[facility] [address] [place], [address] Eosinophils/100 WBC (Bld) 2.1 % Normal 0-5 [facility] Comment on above: Performed By: #### L 100.0100 ####[facility] [address] [place], [address] Erythrocyte distribution width (RBC) [Ratio] 20.1 % High 11.6-14.6 [facility] Comment on above: Performed By: #### L 100.0100 ####[facility] [address] [place], [address] Hematocrit (Bld) [Volume fraction] 28.3 % Low 40-54 [facility] Comment on above: Performed By: #### L 100.0100 ####[facility] [address] [place], [address] Hemoglobin (Bld) [Mass/Vol] 8.2 g/dL Low 13.0-16.5 [facility] Comment on above: Performed By: #### L 100.0100 ####[facility] [address] [place], [address] IG% 0.400 Normal 0.0-0.9 [facility] Comment on above: Result Comment: IG% - Immature Granulocytes (promyelocytes, myelocytes andmetamyelocytes) > 1% indicates that a LEFT SHIFT is Present. Performed By: #### L 100.0100 ####[facility] [address] [place], [address] Lymphocytes/100 WBC (Bld) 7.5 % Low 19-41 [facility] Comment on above: Performed By: #### L 100.0100 ####[facility] [address] [place], [address] MCH (RBC) [Entitic mass] 21.7 pg Low 27.0-32.0 [facility] Comment on above: Performed By: #### L 100.0100 ####[facility] [address] [place], [address] MCHC (RBC) [Mass/Vol] 29.0 g/dL Low 32-36 [facility] Comment on above: Performed By: #### L 100.0100 ####[facility] [address] [place], [address] MCV (RBC) [Entitic vol] 74.9 fL Low 80-94 [facility] Comment on above: Performed By: #### L 100.0100 ####[facility] [address] [place], [address] Monocytes/100 WBC (Bld) 9.4 % Normal 0-10 [facility] Comment on above: Performed By: #### L 100.0100 ####[facility] [address] [place], [address] Neutrophils/100 WBC (Bld) 80.3 % High 47-70 [facility] Comment on above: Performed By: #### L 100.0100 ####[facility] [address] [place], [address] Nucleated RBC (Bld) [#/Vol] 0 10*3/uL Normal 0-5 [facility] Comment on above: Performed By: #### L 100.0100 ####[facility] [address] [place], [address] Platelet mean volume (Bld) [Entitic vol] 9.6 fL Normal 6.2-12.0 [facility] Comment on above: Performed By: #### L 100.0100 ####[facility] [address] [place], [address] Platelets (Bld) [#/Vol] 282 10*3/uL Normal 150-450 [facility] Comment on above: Performed By: #### L 100.0100 ####[facility] [address] [place], [address] RBC (Bld) [#/Vol] 3.78 10*6/uL Low 4.6-6.2 [facility] Comment on above: Performed By: #### L 100.0100 ####[facility] [address] [place], [address] RDW SD 54.1 fl High 35.1-43.9 [facility] Comment on above: Performed By: #### L 100.0100 ####[facility] [address] [place], [address] WBC (Bld) [#/Vol] 12.0 10*3/uL High 4.4-11.0 [facility] Comment on above: Performed By: #### L 100.0100 ####[facility] [address] [place], [address] Absolute Lymph 0.90 X10 3/uL Normal 0.83-4.51 [facility] Comment on above: Performed By: #### L 500.2500, L503.6620, L100.0100 ####[facility] [address] [place], [address] Absolute Neut 9.9 X10 3/uL High 2.0-7.7 [facility] Comment on above: Performed By: #### L 500.2500, L503.6620, L100.0100 ####[facility] [address] [place], [address] Basophils/100 WBC (Bld) 0.4 % Normal 0-1 [facility] Comment on above: Performed By: #### L 500.2500, L503.6620, L100.0100 ####[facility] [address] [place], [address] Eosinophils/100 WBC (Bld) 2.3 % Normal 0-5 [facility] Comment on above: Performed By: #### L 500.2500, L503.6620, L100.0100 ####[facility] [address] [place], [address] Erythrocyte distribution width (RBC) [Ratio] 19.9 % High 11.6-14.6 [facility] Comment on above: Performed By: #### L 500.2500, L503.6620, L100.0100 ####[facility] [address] [place], [address] Hematocrit (Bld) [Volume fraction] 27.8 % Low 40-54 [facility] Comment on above: Performed By: #### L 500.2500, L503.6620, L100.0100 ####[facility] [address] [place], [address] Hemoglobin (Bld) [Mass/Vol] 8.2 g/dL Low 13.0-16.5 [facility] Comment on above: Performed By: #### L 500.2500, L503.6620, L100.0100 ####[facility] [address] [place], [address] IG% 0.400 Normal 0.0-0.9 [facility] Comment on above: Result Comment: IG% - Immature Granulocytes (promyelocytes, myelocytes andmetamyelocytes) > 1% indicates that a LEFT SHIFT is Present. Performed By: #### L 500.2500, L503.6620, L100.0100 ####[facility] [address] [place], [address] Lymphocytes/100 WBC (Bld) 7.4 % Low 19-41 [facility] Comment on above: Performed By: #### L 500.2500, L503.6620, L100.0100 ####[facility] [address] [place], [address] MCH (RBC) [Entitic mass] 22.1 pg Low 27.0-32.0 [facility] Comment on above: Performed By: #### L 500.2500, L503.6620, L100.0100 ####[facility] [address] [place], [address] MCHC (RBC) [Mass/Vol] 29.5 g/dL Low 32-36 [facility] Comment on above: Performed By: #### L 500.2500, L503.6620, L100.0100 ####[facility] [address] [place], [address] MCV (RBC) [Entitic vol] 74.9 fL Low 80-94 [facility] Comment on above: Performed By: #### L 500.2500, L503.6620, L100.0100 ####[facility] [address] [place], [address] Monocytes/100 WBC (Bld) 8.5 % Normal 0-10 [facility] Comment on above: Performed By: #### L 500.2500, L503.6620, L100.0100 ####[facility] [address] [place], [address] Neutrophils/100 WBC (Bld) 81.0 % High 47-70 [facility] Comment on above: Performed By: #### L 500.2500, L503.6620, L100.0100 ####[facility] [address] [place], [address] Nucleated RBC (Bld) [#/Vol] 0 10*3/uL Normal 0-5 [facility] Comment on above: Performed By: #### L 500.2500, L503.6620, L100.0100 ####[facility] [address] [place], [address] Platelet mean volume (Bld) [Entitic vol] 10.5 fL Normal 6.2-12.0 [facility] Comment on above: Performed By: #### L 500.2500, L503.6620, L100.0100 ####[facility] [address] [place], [address] Platelets (Bld) [#/Vol] 349 10*3/uL Normal 150-450 [facility] Comment on above: Performed By: #### L 500.2500, L503.6620, L100.0100 ####[facility] [address] [place], [address] RBC (Bld) [#/Vol] 3.71 10*6/uL Low 4.6-6.2 [facility] Comment on above: Performed By: #### L 500.2500, L503.6620, L100.0100 ####[facility] [address] [place], [address] RDW SD 53.1 fl High 35.1-43.9 [facility] Comment on above: Performed By: #### L 500.2500, L503.6620, L100.0100 ####[facility] [address] [place], [address] WBC (Bld) [#/Vol] 12.2 10*3/uL High 4.4-11.0 [facility] Comment on above: Performed By: #### L 500.2500, L503.6620, L100.0100 ####[facility] [address] [place], [place], [address] CO2 (BldV) [Moles/Vol]Ordere d By: Luli Alex on 04-12-2024 CO2 [Moles/Vol] 24 mmol/L 23-33 [facility] Chest 1 View (Portable)on Chest 1 View (Portable) Normal [facility] Emergency Department Summary on 04-12-2024 Emergency Department Summary Normal [facility] H AND P Exam - Hospitaliston 04-12-2024 H&P Exam - Hospitalist Normal [facility] Influenza virus A and B and SARS-CoV-2 (COVID-19) and Respiratory syncytial virus RNAOrdered By: Luli Alex on 04-12-2024 SARS-CoV-2 (COVID-19) RNA FLORES+probe Ql (Unsp spec) [facility] L501.4020on 04-12-2024 TROPONIN-I HS 12 pg/mL Normal 3.0-78.0 [facility] Comment on above: Order Comment: Comme nts: SPECIMEN #3'TROP' Serial specimen #1, #2 or #3: 3 Result Comment: Plea se Note: New Test Units and Gender Specific Reference Ranges. For more information see Policy Stat Procedure [place] High Sensitivity Troponin (TNIH) and attachments. Performed By: #### L 501.4020 ####[facility] [address] [facility], [address] TROPONIN-I HS 18 pg/mL Normal 3.0-78.0 [facility] Comment on above: Order Comment: Comme nts: SPECIMEN #2'TROP' Serial specimen #1, #2 or #3: 2 Result Comment: Plea se Note: New Test Units and Gender Specific Reference Ranges. For more information see Policy Stat Procedure [place] High Sensitivity Troponin (TNIH) and attachments. Performed By: #### L 501.4020 ####[facility] [address] [facility] [address] [place], [place], [address] TROPONIN-I HS 16 pg/mL Normal 3.0-78.0 [facility] Comment on above: Order Comment: NEETU W. PREVIOUS SPECIMEN REJECTED DUE TOHEMOLYSIS. 04/12/24 1220 Luiz Sandoval.1 Result Comment: Kodi monterroso Note: New Test Units and Gender Specific Reference Ranges. For more information see Policy Stat Procedure [place] High Sensitivity Troponin (TNIH) and attachments. Performed By: #### L 500.2500, L501.4020 ####[facility] [address] [place], [address] M100.678on 04-12-2024 M100.678 Pending SARS-CoV-2 (COVID 19) Negative INFLUENZA A Negative INFLUENZA B Negative RSV PCR Negative Normal [facility] Comment on above: Performed By: #### M 100.678 ####[facility] [address] [place], [address] No Panel InformationOrdered By: Luli Alex on 04-12-2024 JOSHUA [facility] Not entered [facility] Cannula [facility] Organism identificationOrder ed By: Luli Alex on 04-12-2024 Microorganism identified Cx Nom (Unsp spec) [facility] Troponin IOrdered By: Eduin Ospina on 04-12-2024 Troponin I 12 pg/mL 3.0-78.0 [facility] Venous Blood Gason 5 Blood Gas Type JOSHUA Normal [facility] Comment on above: Performed By: #### L 9000.0810 ####[facility] [address] [place], [address] CO2 [Moles/Vol] 24 mmol/L Normal 23-33 [facility] Comment on above: Performed By: #### L 9000.0810 ####[facility] [address] [place], [address] FI02 5.0 Normal [facility] Comment on above: Performed By: #### L 9000.0810 ####[facility] [address] [place], [address] HCO3 (Bld) [Moles/Vol] 23 mmol/L Normal 22-26 [facility] Comment on above: Performed By: #### L 9000.0810 ####[facility] [address] [place], [address] O2 Delivery Dev Cannula Normal [facility] Comment on above: Performed By: #### L 9000.0810 ####[facility] [address] [place], [address] SITE Not entered Normal [facility] Comment on above: Performed By: #### L 9000.0810 ####[facility] [address] [place], [address] VBG BE -1 mmol/L Normal -1.0-3.5 [facility] Comment on above: Performed By: #### L 9000.0810 ####[facility] [address] [place], [address] VBG pCO2 34.8 mmHg Low 41-51 [facility] Comment on above: Performed By: #### L 9000.0810 ####[facility] [address] [place], [address] VBG pH 7.43 High 7.32-7.42 [facility] Comment on above: Performed By: #### L 9000.0810 ####[facility] [address] [place], [address] VBG PO2 30 mmHg Normal 25-40 [facility] Comment on above: Performed By: #### L 9000.0810 ####[facility] [address] [place], [address] VBG SO2 60 Normal 50-70 [facility] Comment on above: Performed By: #### L 9000.0810 ####[facility] [address] [place], [address] Venous blood base excess elizabeth surementOrdered By: Luli Alxe on 04-12-2024 Base excess Calc (BldV) [Moles/Vol] -1 mmol/L -1.0-3.5 [facility] Venous blood bicarbonate elizabeth surementOrdered By: Luli Alex on 04-12-2024 HCO3 (Bld) [Moles/Vol] 23 mmol/L 22-26 [facility] Venous blood pH measurementO rdered By: Luli Alex on 04-12-2024 pH (BldV) 7.43 [pH] High 7.32-7.42 [facility] Venous blood partial pressur e of carbon dioxide measurementOrdered By: Luli Alex on 04-12-2024 CO2 (BldV) [Partial pressure] 34.8 mm[Hg] Low 41-51 [facility] Venous blood partial pressur e of oxygen measurementOrdered By: Luli Alex on 04-12-2024 Oxygen (BldV) [Partial pressure] 30 mm[Hg] 25-40 [facility] 36on 04-09-2024 36 Call ref #[id number] 000 NAN for CPT 46837 & 49025 Normal [facility] No Panel Informationon 04-07 1. There [...] Signed Date/Time: 04/07/2024 12:27 AM [facility] 1965 [id number] Exam Date/Time: 04/06/2024 13:31 Procedure: VASC US [...] 50-69% ECA systolic: 256 cm/sec Vertebral: [facility] Sameer Etienne MD - 04/07/2024 Patient Name: [facility] 1965 [id number] Exam Date/Time: 04/06/2024 13:31 Procedure: VASC US [...] MD Electronically Signed Date/Time: 04/07/2024 12:27 AM [facility] US CAROTID ARTERY DUPLE X BILATERALon 04-07-2024 [facility] US CAROTID ARTERY DUPLEX BILATERAL Patient Name: KRUNAL LEOS : 1965 Exam Date/Time: 04/06/2024 13:31 Procedure: VAS US CAROTID ARTERY DUPLEX BILATERAL Ordering Provider: JUVENTINO, , SUZY Reason For Exam: Carotid stenosis BILATERAL CAROTID [...] MD Electronically Signed Date/Time: 04/07/2024 12:27 AM [facility] Office Visit Reporton 2023 Office Visit Report Normal [facility] Bedside Glucoseon 03-27-2024 FINGERSTICK GLU 195 mg/dL High 74-106 [facility] Comment on above: Result Comment: ANI BRADFORD OF PATIENT CARE PER NURSING PROTOCOL Performed By: #### L 501.080 ####[facility] [address] [place], [address] Colonoscopy Reporton 024 Colonoscopy Report Normal [facility] EGD Reporton 03-27-2024 EGD Report Normal [facility] H Pylori (initial)on 024 H Pylori (initial) Normal [facility] Comment on above: Performed By: #### P H.PYLORI ####[facility] [address] [place], [place], [address] MR/POSTOP.ANEon 03-27-2024 MR/POSTOP.ANE Normal [facility] MR/KIBYHWUC1aa 03-27-2024 MR/POSTOPAN2 Normal [facility] Surgery Specimen Level Dolores 03-27-2024 Surgery Specimen Level IV Normal [facility] Comment on above: Performed By: #### P SUIV ####[facility] [address] [place], [place], [address] Pulmonary Visit Reporton Pulmonary Visit Report Normal [facility] MR/PAT.ANEon 03-20-2024 MR/PAT.ANE Normal [facility] Cardiology Visit Reporton Cardiology Visit Report Normal [facility] RICARDO w/ Reflex Mult Confirmon 03-05-2024 RICARDO,DIRECT Negative Normal Negative [facility] Comment on above: Result Comment: Perf ormed at: - [facility] [address] [id number] Director: Chance Morales PhD, Phone: [phone] Performed By: #### L 826.9821, C1415.3930, R2913.8239, A2258.6236 ####[facility] [address] [place], [place], [address] ANCAon 03-05-2024 Atypical pANCA <1:20 Normal Neg:<1:20 [facility] Comment on above: Result Comment: The atypical pANCA pattern has been observed in asignificant percentage of patients with ulcerative colitis,primary sclerosing cholangitis and autoimmune hepatitis. Performed By: #### L 505.7010, L3300.1200, L3100.5450, L4600.0100 ####[facility] [address] [place], [address] Cytoplasmic Ab <1:20 Normal Neg:<1:20 [facility] Comment on above: Performed By: #### L 505.7010, L3300.1200, L3100.5450, L4600.0100 ####[facility] [address] [place], [address] Perinuclear Ab. <1:20 Normal Neg:<1:20 [facility] Comment on above: Result Comment: The presence of positive fluorescence exhibiting P-ANCA orC-ANCA patterns alone is not specific for the diagnosis ofWegener's Granulomatosis (WG) or microscopic polyangiitis.Decisions about treatment should not be based solely onANCA IFA results. The [employer] AN[employer] Consensusrecommends follow up testing of positive sera with both CT-3 and MPO-ANCA enzyme immunoassays. As many as 5% serumsamples are positive only by EIA. Ref. AM J Clin Oorvtm9429;111:507-513. Performed By: #### L 505.7010, L3300.1200, L3100.5450, L4600.0100 ####[facility] [address] [place], [address] CCP IgG Antibodieson 024 CCP IgG Ab. 6 units Normal 0-19 [facility] Comment on above: Result Comment: Nega tive <20 Weak positive 20 - 39 Moderate positive 40 - 59 Strong positive >59Performed at: [facility] [id number] Director: Chance Morales PhD, Phone: [phone] Performed By: #### L 505.7010, L3300.1200, L3100.5450, L4600.0100 ####[facility] [address] [place], [address] Discharge Instructionon Discharge Instruction Normal [facility] Rheumatoid Factoron 03-04-20 24 RHEUMATOID FAC 25.0 IU/mL High <15 [facility] Comment on above: Performed By: #### L 505.7010, L3300.1200, L3100.5450, L4600.0100 ####[facility] [address] [place], [address] CBC W/Diff, Automatedon -2023 Absolute Lymph 1.46 X10 3/uL Normal 0.83-4.51 [facility] Comment on above: Performed By: #### L 501.9573, L100.0100 ####[facility] [address] [place], [address] Absolute Neut 5.9 X10 3/uL Normal 2.0-7.7 [facility] Comment on above: Performed By: #### L 501.9520, L100.0100 ####[facility] [address] [place], [address] Basophils/100 WBC (Bld) 0.6 % Normal 0-1 [facility] Comment on above: Performed By: #### L 501.9520, L100.0100 ####[facility] [address] [place], [address] Eosinophils/100 WBC (Bld) 2.9 % Normal 0-5 [facility] Comment on above: Performed By: #### L 501.9520, L100.0100 ####[facility] [address] [place], [address] Erythrocyte distribution width (RBC) [Ratio] 17.6 % High 11.6-14.6 [facility] Comment on above: Performed By: #### L 501.9519, L100.0100 ####[facility] [address] [place], [address] Hematocrit (Bld) [Volume fraction] 31.2 % Low 40-54 [facility] Comment on above: Performed By: #### L 501.9519, L100.0100 ####[facility] [address] [place], [address] Hemoglobin (Bld) [Mass/Vol] 9.0 g/dL Low 13.0-16.5 [facility] Comment on above: Performed By: #### L 501.9519, L100.0100 ####[facility] [address] [place], [address] IG% 0.400 Normal 0.0-0.9 [facility] Comment on above: Result Comment: IG% - Immature Granulocytes (promyelocytes, myelocytes andmetamyelocytes) > 1% indicates that a LEFT SHIFT is Present. Performed By: #### L 501.9519, L100.0100 ####[facility] [address] [place], [address] Lymphocytes/100 WBC (Bld) 17.2 % Low 19-41 [facility] Comment on above: Performed By: #### L 501.9519, L100.0100 ####[facility] [address] [place], [address] MCH (RBC) [Entitic mass] 21.9 pg Low 27.0-32.0 [facility] Comment on above: Performed By: #### L 501.9519, L100.0100 ####[facility] [address] [place], [address] MCHC (RBC) [Mass/Vol] 28.8 g/dL Low 32-36 [facility] Comment on above: Performed By: #### L 501.9519, L100.0100 ####[facility] [address] [place], [address] MCV (RBC) [Entitic vol] 75.9 fL Low 80-94 [facility] Comment on above: Performed By: #### L 501.20, L100.0100 ####[facility] [address] [place], [address] Monocytes/100 WBC (Bld) 9.3 % Normal 0-10 [facility] Comment on above: Performed By: #### L 501.9519, L100.0100 ####[facility] [address] [place], [address] Neutrophils/100 WBC (Bld) 69.6 % Normal 47-70 [facility] Comment on above: Performed By: #### L 501.9519, L100.0100 ####[facility] [address] [place], [address] Nucleated RBC (Bld) [#/Vol] 0 10*3/uL Normal 0-5 [facility] Comment on above: Performed By: #### L 501.9519, L100.0100 ####[facility] [address] [place], [address] Platelet mean volume (Bld) [Entitic vol] 9.8 fL Normal 6.2-12.0 [facility] Comment on above: Performed By: #### L 501.9519, L100.0100 ####[facility] [address] [place], [address] Platelets (Bld) [#/Vol] 227 10*3/uL Normal 150-450 [facility] Comment on above: Performed By: #### L 501.9519, L100.0100 ####[facility] [address] [place], [address] RBC (Bld) [#/Vol] 4.11 10*6/uL Low 4.6-6.2 [facility] Comment on above: Performed By: #### L 501.9520, L100.0100 ####[facility] [address] [place], [address] RDW SD 47.8 fl High 35.1-43.9 [facility] Comment on above: Performed By: #### L 501.9520, L100.0100 ####[facility] [address] [place], [address] WBC (Bld) [#/Vol] 8.5 10*3/uL Normal 4.4-11.0 [facility] Comment on above: Performed By: #### L 501.9520, L100.0100 ####[facility] [address] 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, [address] Thyroid Stim Hormone (TSH)on 03-03-2024 TSH 1.390 uIU/mL Normal 0.358-3.740 [facility] Comment on above: Performed By: #### L 501.9520, L100.0100 ####[facility] [address] [place], [address] 12 Lead EKGon 03-02-2024 12 Lead EKG Normal [facility] BNP,B-Type NATRIURETIC PEPTI Sindy 03-02-2024 Natriuretic peptide B (Bld) [Mass/Vol] 48.5 pg/mL Normal 0-100 [facility] Comment on above: Performed By: #### L 501.4020, L100.0100, L500.2500, L503.6620 ####[facility] [address] [place], [address] Basic Metabolic Profile (BMP )on 03-02-2024 BUN/CRE 23.3 RATIO High 10-20 [facility] Comment on above: Order Comment: 'TROP ' Serial specimen #1, #2 or #3: 1 Performed By: #### L 501.4020, L100.0100, L500.2500, L503.6620 ####[facility] [address] [place], [address] CA,Total 9.0 mg/dL Normal 8.5-10.1 [facility] Comment on above: Order Comment: 'TROP ' Serial specimen #1, #2 or #3: 1 Performed By: #### L 501.4020, L100.0100, L500.2500, L503.6620 ####[facility] [address] [place], [address] Chloride [Moles/Vol] 107 mmol/L Normal 98-107 [facility] Comment on above: Order Comment: 'TROP ' Serial specimen #1, #2 or #3: 1 Performed By: #### L 501.4020, L100.0100, L500.2500, L503.6620 ####[facility] [address] [place], [address] CO2 [Moles/Vol] 24.0 mmol/L Normal 21.0-32.0 [facility] Comment on above: Order Comment: 'TROP ' Serial specimen #1, #2 or #3: 1 Performed By: #### L 501.4020, L100.0100, L500.2500, L503.6620 ####[facility] [address] [place], [address] Creatinine [Mass/Vol] 1.03 mg/dL Normal 0.70-1.30 [facility] Comment on above: Order Comment: 'TROP ' Serial specimen #1, #2 or #3: 1 Result Comment: The validity of the calculated GFR GFRAA in patients over70 years has not been determined. Clinical correlation isessential. Performed By: #### L 501.4020, L100.0100, L500.2500, L503.6620 ####[facility] [address] [place], [address] ECRCL 107.77 ml/min Normal [facility] Comment on above: Order Comment: 'TROP ' Serial specimen #1, #2 or #3: 1 Performed By: #### L 501.4020, L100.0100, L500.2500, L503.6620 ####[facility] [address] [place], [address] EST GFR - AA 95 mL/min Normal >60 [facility] Comment on above: Order Comment: 'TROP ' Serial specimen #1, #2 or #3: 1 Result Comment: Afri can [place] GFR Calc Performed By: #### L 501.4020, L100.0100, L500.2500, L503.6620 ####[facility] [address] [place], [address] GAP 6 Normal 5-15 [facility] Comment on above: Order Comment: 'TROP ' Serial specimen #1, #2 or #3: 1 Performed By: #### L 501.4020, L100.0100, L500.2500, L503.6620 ####[facility] [address] [place], [address] GFR/1.73 sq M.predicted among non-blacks MDRD (S/P/Bld) [Vol rate/Area] 78 mL/min/{1.73_m2} Normal >60 [facility] Comment on above: Order Comment: 'TROP ' Serial specimen #1, #2 or #3: 1 Result Comment: Non- GFR Calc Performed By: #### L 501.4020, L100.0100, L500.2500, L503.6620 ####[facility] [address] [place], [address] Glucose [Mass/Vol] 220 mg/dL High 74-106 [facility] Comment on above: Order Comment: 'TROP ' Serial specimen #1, #2 or #3: 1 Result Comment: Gluc ose result greater than or equal to 200 mg/dLsuggests DIABETES MELLITUS per A.D.A. criteria. Performed By: #### L 501.4020, L100.0100, L500.2500, L503.6620 ####[facility] [address] [place], [address] Potassium [Moles/Vol] 4.0 mmol/L Normal 3.5-5.1 [facility] Comment on above: Order Comment: 'TROP ' Serial specimen #1, #2 or #3: 1 Performed By: #### L 501.4020, L100.0100, L500.2500, L503.6620 ####[facility] [address] [place], [address] Sodium [Moles/Vol] 136 mmol/L Normal 136-145 [facility] Comment on above: Order Comment: 'TROP ' Serial specimen #1, #2 or #3: 1 Performed By: #### L 501.4020, L100.0100, L500.2500, L503.6620 ####[facility] [address] [place], [address] Urea nitrogen [Mass/Vol] 24 mg/dL High 7-18 [facility] Comment on above: Order Comment: 'TROP ' Serial specimen #1, #2 or #3: 1 Performed By: #### L 501.4020, L100.0100, L500.2500, L503.6620 ####[facility] [address] [place], [address] CBC W/Diff, Automatedon 12-0 2-2024 Absolute Lymph 1.30 X10 3/uL Normal 0.83-4.51 [facility] Comment on above: Performed By: #### L 501.4020, L100.0100, L500.2500, L503.6620 ####[facility] [address] [place], [address] Absolute Neut 6.6 X10 3/uL Normal 2.0-7.7 [facility] Comment on above: Performed By: #### L 501.4020, L100.0100, L500.2500, L503.6620 ####[facility] [address] [place], [address] Basophils/100 WBC (Bld) 0.6 % Normal 0-1 [facility] Comment on above: Performed By: #### L 501.4020, L100.0100, L500.2500, L503.6620 ####[facility] [address] [place], [address] Eosinophils/100 WBC (Bld) 2.4 % Normal 0-5 [facility] Comment on above: Performed By: #### L 501.4020, L100.0100, L500.2500, L503.6620 ####[facility] [address] [place], [address] Erythrocyte distribution width (RBC) [Ratio] 17.9 % High 11.6-14.6 [facility] Comment on above: Performed By: #### L 501.4020, L100.0100, L500.2500, L503.6620 ####[facility] [address] [place], [address] Hematocrit (Bld) [Volume fraction] 32.1 % Low 40-54 [facility] Comment on above: Performed By: #### L 501.4020, L100.0100, L500.2500, L503.6620 ####[facility] [address] [place], [address] Hemoglobin (Bld) [Mass/Vol] 9.3 g/dL Low 13.0-16.5 [facility] Comment on above: Performed By: #### L 501.4020, L100.0100, L500.2500, L503.6620 ####[facility] [address] [place], [address] IG% 0.400 Normal 0.0-0.9 [facility] Comment on above: Result Comment: IG% - Immature Granulocytes (promyelocytes, myelocytes andmetamyelocytes) > 1% indicates that a LEFT SHIFT is Present. Performed By: #### L 501.4020, L100.0100, L500.2500, L503.6620 ####[facility] [address] [place], [address] Lymphocytes/100 WBC (Bld) 14.4 % Low 19-41 [facility] Comment on above: Performed By: #### L 501.4020, L100.0100, L500.2500, L503.6620 ####[facility] [address] [place], [address] MCH (RBC) [Entitic mass] 22.2 pg Low 27.0-32.0 [facility] Comment on above: Performed By: #### L 501.4020, L100.0100, L500.2500, L503.6620 ####[facility] [address] [place], [address] MCHC (RBC) [Mass/Vol] 29.0 g/dL Low 32-36 [facility] Comment on above: Performed By: #### L 501.4020, L100.0100, L500.2500, L503.6620 ####[facility] [address] [place], [address] MCV (RBC) [Entitic vol] 76.6 fL Low 80-94 [facility] Comment on above: Performed By: #### L 501.4020, L100.0100, L500.2500, L503.6620 ####[facility] [address] [place], [address] Monocytes/100 WBC (Bld) 8.3 % Normal 0-10 [facility] Comment on above: Performed By: #### L 501.4020, L100.0100, L500.2500, L503.6620 ####[facility] [address] [place], [address] Neutrophils/100 WBC (Bld) 73.9 % High 47-70 [facility] Comment on above: Performed By: #### L 501.4020, L100.0100, L500.2500, L503.6620 ####[facility] [address] [place], [address] Nucleated RBC (Bld) [#/Vol] 0 10*3/uL Normal 0-5 [facility] Comment on above: Performed By: #### L 501.4020, L100.0100, L500.2500, L503.6620 ####[facility] [address] [place], [address] Platelet mean volume (Bld) [Entitic vol] 10.6 fL Normal 6.2-12.0 [facility] Comment on above: Performed By: #### L 501.4020, L100.0100, L500.2500, L503.6620 ####[facility] [address] [place], [address] Platelets (Bld) [#/Vol] 242 10*3/uL Normal 150-450 [facility] Comment on above: Performed By: #### L 501.4020, L100.0100, L500.2500, L503.6620 ####[facility] [address] [place], [address] RBC (Bld) [#/Vol] 4.19 10*6/uL Low 4.6-6.2 [facility] Comment on above: Performed By: #### L 501.4020, L100.0100, L500.2500, L503.6620 ####[facility] [address] [place], [address] RDW SD 49.2 fl High 35.1-43.9 [facility] Comment on above: Performed By: #### L 501.4020, L100.0100, L500.2500, L503.6620 ####[facility] [address] [place], [address] WBC (Bld) [#/Vol] 9.0 10*3/uL Normal 4.4-11.0 [facility] Comment on above: Performed By: #### L 501.4020, L100.0100, L500.2500, L503.6620 ####[facility] [address] [place], [address] Chest PA and Lateralon 03-02 Chest PA and Lateral Normal [facility] Echo Complete W/ Contraston 03-02-2024 Echo Complete W/ Contrast Normal [facility] Emergency Department Summary on 03-02-2024 Emergency Department Summary Normal [facility] H AND P Exam - Hospitaliston 03-02-2024 H&P Exam - Hospitalist Normal [facility] L501.4020on 03-02-2024 TROPONIN-I HS 35 pg/mL Normal 3.0-78.0 [facility] Comment on above: Order Comment: 'TROP ' Serial specimen #1, #2 or #3: 1 Result Comment: Plea se Note: New Test Units and Gender Specific Reference Ranges. For more information see Policy Stat Procedure [place] High Sensitivity Troponin (TNIH) and attachments. Performed By: #### L 501.4020, L100.0100, L500.2500, L503.6620 ####[facility] [address] [place], [address] M100.678on 03-02-2024 M100.678 Pending SARS-CoV-2 (COVID 19) Negative INFLUENZA A Negative INFLUENZA B Negative RSV PCR Negative Normal [facility] Comment on above: Performed By: #### M 100.678 ####[facility] [address] [place], [address] Basic Metabolic Profile (BMP )on 02-26-2024 BUN/CRE 20.5 RATIO High 10-20 [facility] Comment on above: Order Comment: 'TROP ' Serial specimen #1, #2 or #3: 1 Performed By: #### L 501.4020, L501.5200, L500.2500, L100.0100 ####[facility] [address] [place], [address] CA,Total 9.0 mg/dL Normal 8.5-10.1 [facility] Comment on above: Order Comment: 'TROP ' Serial specimen #1, #2 or #3: 1 Performed By: #### L 501.4020, L501.5200, L500.2500, L100.0100 ####[facility] [address] [place], [address] Chloride [Moles/Vol] 109 mmol/L High 98-107 [facility] Comment on above: Order Comment: 'TROP ' Serial specimen #1, #2 or #3: 1 Performed By: #### L 501.4020, L501.5200, L500.2500, L100.0100 ####[facility] [address] [place], [address] CO2 [Moles/Vol] 22.0 mmol/L Normal 21.0-32.0 [facility] Comment on above: Order Comment: 'TROP ' Serial specimen #1, #2 or #3: 1 Performed By: #### L 501.4020, L501.5200, L500.2500, L100.0100 ####[facility] [address] [place], [address] Creatinine [Mass/Vol] 1.32 mg/dL High 0.70-1.30 [facility] Comment on above: Order Comment: 'TROP ' Serial specimen #1, #2 or #3: 1 Result Comment: The validity of the calculated GFR GFRAA in patients over70 years has not been determined. Clinical correlation isessential. Performed By: #### L 501.4020, L501.5200, L500.2500, L100.0100 ####[facility] [address] [place], [address] ECRCL 83.89 ml/min Normal [facility] Comment on above: Order Comment: 'TROP ' Serial specimen #1, #2 or #3: 1 Performed By: #### L 501.4020, L501.5200, L500.2500, L100.0100 ####[facility] [address] [place], [address] EST GFR - AA 71 mL/min Normal >60 [facility] Comment on above: Order Comment: 'TROP ' Serial specimen #1, #2 or #3: 1 Result Comment: Afri can [place] GFR Calc Performed By: #### L 501.4020, L501.5200, L500.2500, L100.0100 ####[facility] [address] [place], [address] GAP 7 Normal 5-15 [facility] Comment on above: Order Comment: 'TROP ' Serial specimen #1, #2 or #3: 1 Performed By: #### L 501.4020, L501.5200, L500.2500, L100.0100 ####[facility] [address] [place], [address] GFR/1.73 sq M.predicted among non-blacks MDRD (S/P/Bld) [Vol rate/Area] 59 mL/min/{1.73_m2} Low >60 [facility] Comment on above: Order Comment: 'TROP ' Serial specimen #1, #2 or #3: 1 Result Comment: Non- GFR Calc Performed By: #### L 501.4020, L501.5200, L500.2500, L100.0100 ####[facility] [address] [place], [address] Glucose [Mass/Vol] 193 mg/dL High 74-106 [facility] Comment on above: Order Comment: 'TROP ' Serial specimen #1, #2 or #3: 1 Result Comment: Fast ing Glucose result greater than or equal to 126 mg/dLsuggests DIABETES MELLITUS per A.D.A. criteria. Performed By: #### L 501.4020, L501.5200, L500.2500, L100.0100 ####[facility] [address] [place], [address] Potassium [Moles/Vol] 4.0 mmol/L Normal 3.5-5.1 [facility] Comment on above: Order Comment: 'TROP ' Serial specimen #1, #2 or #3: 1 Performed By: #### L 501.4020, L501.5200, L500.2500, L100.0100 ####[facility] [address] [place], [address] Sodium [Moles/Vol] 138 mmol/L Normal 136-145 [facility] Comment on above: Order Comment: 'TROP ' Serial specimen #1, #2 or #3: 1 Performed By: #### L 501.4020, L501.5200, L500.2500, L100.0100 ####[facility] [address] [place], [address] Urea nitrogen [Mass/Vol] 27 mg/dL High 7-18 [facility] Comment on above: Order Comment: 'TROP ' Serial specimen #1, #2 or #3: 1 Performed By: #### L 501.4020, L501.5200, L500.2500, L100.0100 ####[facility] [address] [place], [address] CBC W/Diff, Automatedon 01-31 Absolute Lymph 1.36 X10 3/uL Normal 0.83-4.51 [facility] Comment on above: Performed By: #### L 501.4020, L501.5200, L500.2500, L100.0100 ####[facility] [address] [place], [address] Absolute Neut 6.7 X10 3/uL Normal 2.0-7.7 [facility] Comment on above: Performed By: #### L 501.4020, L501.5200, L500.2500, L100.0100 ####[facility] [address] [place], [address] Basophils/100 WBC (Bld) 0.9 % Normal 0-1 [facility] Comment on above: Performed By: #### L 501.4020, L501.5200, L500.2500, L100.0100 ####[facility] [address] [place], [address] Eosinophils/100 WBC (Bld) 2.1 % Normal 0-5 [facility] Comment on above: Performed By: #### L 501.4020, L501.5200, L500.2500, L100.0100 ####[facility] [address] [place], [address] Erythrocyte distribution width (RBC) [Ratio] 18.2 % High 11.6-14.6 [facility] Comment on above: Performed By: #### L 501.4020, L501.5200, L500.2500, L100.0100 ####[facility] [address] [place], [address] Hematocrit (Bld) [Volume fraction] 34.4 % Low 40-54 [facility] Comment on above: Performed By: #### L 501.4020, L501.5200, L500.2500, L100.0100 ####[facility] [address] [place], [address] Hemoglobin (Bld) [Mass/Vol] 10.2 g/dL Low 13.0-16.5 [facility] Comment on above: Performed By: #### L 501.4020, L501.5200, L500.2500, L100.0100 ####[facility] [address] [place], [address] IG% 0.400 Normal 0.0-0.9 [facility] Comment on above: Result Comment: IG% - Immature Granulocytes (promyelocytes, myelocytes andmetamyelocytes) > 1% indicates that a LEFT SHIFT is Present. Performed By: #### L 501.4020, L501.5200, L500.2500, L100.0100 ####[facility] [address] [place], [address] Lymphocytes/100 WBC (Bld) 14.5 % Low 19-41 [facility] Comment on above: Performed By: #### L 501.4020, L501.5200, L500.2500, L100.0100 ####[facility] [address] [place], [address] MCH (RBC) [Entitic mass] 22.7 pg Low 27.0-32.0 [facility] Comment on above: Performed By: #### L 501.4020, L501.5200, L500.2500, L100.0100 ####[facility] [address] [place], [address] MCHC (RBC) [Mass/Vol] 29.7 g/dL Low 32-36 [facility] Comment on above: Performed By: #### L 501.4020, L501.5200, L500.2500, L100.0100 ####[facility] [address] [place], [address] MCV (RBC) [Entitic vol] 76.6 fL Low 80-94 [facility] Comment on above: Performed By: #### L 501.4020, L501.5200, L500.2500, L100.0100 ####[facility] [address] [place], [address] Monocytes/100 WBC (Bld) 10.1 % High 0-10 [facility] Comment on above: Performed By: #### L 501.4020, L501.5200, L500.2500, L100.0100 ####[facility] [address] [place], [address] Neutrophils/100 WBC (Bld) 72.0 % High 47-70 [facility] Comment on above: Performed By: #### L 501.4020, L501.5200, L500.2500, L100.0100 ####[facility] [address] [place], [address] Nucleated RBC (Bld) [#/Vol] 0 10*3/uL Normal 0-5 [facility] Comment on above: Performed By: #### L 501.4020, L501.5200, L500.2500, L100.0100 ####[facility] [address] [place], [address] Platelet mean volume (Bld) [Entitic vol] 10.1 fL Normal 6.2-12.0 [facility] Comment on above: Performed By: #### L 501.4020, L501.5200, L500.2500, L100.0100 ####[facility] [address] [place], [address] Platelets (Bld) [#/Vol] 254 10*3/uL Normal 150-450 [facility] Comment on above: Performed By: #### L 501.4020, L501.5200, L500.2500, L100.0100 ####[facility] [address] [place], [address] RBC (Bld) [#/Vol] 4.49 10*6/uL Low 4.6-6.2 [facility] Comment on above: Performed By: #### L 501.4020, L501.5200, L500.2500, L100.0100 ####[facility] [address] [place], [address] RDW SD 49.1 fl High 35.1-43.9 [facility] Comment on above: Performed By: #### L 501.4020, L501.5200, L500.2500, L100.0100 ####[facility] [address] [place], [address] WBC (Bld) [#/Vol] 9.4 10*3/uL Normal 4.4-11.0 [facility] Comment on above: Performed By: #### L 501.4020, L501.5200, L500.2500, L100.0100 ####[facility] [address] [place], [address] Chest 1 View (Portable)on Chest 1 View (Portable) Normal [facility] D-Dimer Quantitative (DVT/PE )on 02-26-2024 D-DIMER QUANT 0.44 FEU/ug/m Normal 0.27-0.49 [facility] Comment on above: Result Comment: NORM AL D-Dimer level (<0.50) indicates no DVT or PE. Performed By: #### L 300.8000 ####[facility] [address] [place], [address] Emergency Department Summary on 02-26-2024 Emergency Department Summary Normal [facility] L501.4020on 02-26-2024 TROPONIN-I HS 443 pg/mL Invalid Interpretation Code 3.0-78.0 [facility] Comment on above: Order Comment: 'TROP ' Serial specimen #1, #2 or #3: 2 Result Comment: Crit ical Result(s) Called at: 13:36:54 02/26/2024 by: CINDI Estevez. Results read back by same. Please Note: New Test Units and Gender Specific Reference Ranges. For more information see Policy Stat Procedure [place] High Sensitivity Troponin (TNIH) and attachments. Performed By: #### L 501.4020 ####[facility] [address] [place], [address] TROPONIN-I HS 358 pg/mL Invalid Interpretation Code 3.0-78.0 [facility] Comment on above: Order Comment: 'TROP ' Serial specimen #1, #2 or #3: 1 Result Comment: Crit ical Result(s) Called at: 11:46:25 02/26/2024 by: CINDI Vazquez. Results read back by same. Please Note: New Test Units and Gender Specific Reference Ranges. For more information see Policy Stat Procedure [place] High Sensitivity Troponin (TNIH) and attachments. Performed By: #### L 501.4020, L501.5200, L500.2500, L100.0100 ####[facility] [address] [place], [address] Magnesiumon 02-26-2024 Magnesium [Mass/Vol] 2.3 mg/dL Normal 1.6-2.6 [facility] Comment on above: Order Comment: 'TROP ' Serial specimen #1, #2 or #3: 1 Performed By: #### L 501.4020, L501.5200, L500.2500, L100.0100 ####[facility] [address] [place], [address] Office Visit Reporton 2023 Office Visit Report Normal [facility] Neurology Visit Reporton Neurology Visit Report Normal [facility] 36on 02-12-2024 36 Notes and imaging [...] will determine when to resume Eliquis. Normal [facility] 36 This patient left a voicemail returning a call regarding his test results with Dr. Hutton Please advise :) Normal [facility] Gastroenterology Visit Repor ton 02-07-2024 Gastroenterology Visit Report Normal [facility] 36on 02-06-2024 36 Name of caller: Megan Contact phone number: [phone] Relationship to Patient: care team amanda Provider: Jose Antonio Practice: Endovascular Chief Complaint/Reason for Call: please send all lab work from September to fax [phone] [facility] Best time of day caller can be reached: any Patient advised that office/PCP has 24-48 business hours to return their call: No Normal [facility] CT HEAD NECK ANGIO W AND WO IV CONTRASTon 02-06-2024 CT HEAD NECK ANGIO W AND WO IV CONTRAST [facility] 1965 [id number] Exam Date/Time: 02/06/2024 08:04 Procedure: CT HEAD [...] carotid artery stenosis, Ischemic cerebrovascular accident Normal [facility] Thyroidon 02-06-2024 Thyroid [facility] [facility]05[facility]2024 Progress Note 02/05/24 Pt was seen today for CT Head/Neck w & wo contrast @ [facility] Pt had multiple attempts for IV placement from 2 different techs, with no success. Patient did inform us that he is a very hard stick and normally US is needed. Reached out to oncology for assistance but were extremely busy. Pt was advised to call central scheduling to reschedule at either [facility] or [facility] as they have US. He was initially scheduled at [facility]. The office was contacted on 02/05/24 to relay the information on the outcome of today's CT exam. Christine at the office was given this information. Normal [facility] Oncology Visit Reporton 11-0 Oncology Visit Report Normal [facility] Basic Metabolic Profile (BMP )on 01-22-2024 BUN/CRE 25.4 RATIO High 10-20 [facility] Comment on above: Performed By: #### L 500.2500, L100.0100 ####[facility] [address] [place], [address] CA,Total 8.9 mg/dL Normal 8.5-10.1 [facility] Comment on above: Performed By: #### L 500.2500, L100.0100 ####[facility] [address] [place], [address] Chloride [Moles/Vol] 105 mmol/L Normal 98-107 [facility] Comment on above: Performed By: #### L 500.2500, L100.0100 ####[facility] [address] [place], [address] CO2 [Moles/Vol] 24.0 mmol/L Normal 21.0-32.0 [facility] Comment on above: Performed By: #### L 500.2500, L100.0100 ####[facility] [address] [place], [address] Creatinine [Mass/Vol] 1.22 mg/dL Normal 0.70-1.30 [facility] Comment on above: Result Comment: The validity of the calculated GFR GFRAA in patients over70 years has not been determined. Clinical correlation isessential. Performed By: #### L 500.2500, L100.0100 ####[facility] [address] [place], [address] ECRCL 91.97 ml/min Normal [facility] Comment on above: Performed By: #### L 500.2500, L100.0100 ####[facility] [address] [place], [address] EST GFR - AA 78 mL/min Normal >60 [facility] Comment on above: Result Comment: Afri can [place] GFR Calc Performed By: #### L 500.2500, L100.0100 ####[facility] [address] [place], [address] GAP 7 Normal 5-15 [facility] Comment on above: Performed By: #### L 500.2500, L100.0100 ####[facility] [address] [place], [address] GFR/1.73 sq M.predicted among non-blacks MDRD (S/P/Bld) [Vol rate/Area] 64 mL/min/{1.73_m2} Normal >60 [facility] Comment on above: Result Comment: Non- GFR Calc Performed By: #### L 500.2500, L100.0100 ####[facility] [address] [place], [address] Glucose [Mass/Vol] 196 mg/dL High 74-106 [facility] Comment on above: Result Comment: Fast ing Glucose result greater than or equal to 126 mg/dLsuggests DIABETES MELLITUS per A.D.A. criteria. Performed By: #### L 500.2500, L100.0100 ####[facility] [address] [place], [address] Potassium [Moles/Vol] 4.1 mmol/L Normal 3.5-5.1 [facility] Comment on above: Performed By: #### L 500.2500, L100.0100 ####[facility] [address] [place], [address] Sodium [Moles/Vol] 136 mmol/L Normal 136-145 [facility] Comment on above: Performed By: #### L 500.2500, L100.0100 ####[facility] [address] [place], [address] Urea nitrogen [Mass/Vol] 31 mg/dL High 7-18 [facility] Comment on above: Performed By: #### L 500.2500, L100.0100 ####[facility] [address] [place], [address] Bedside Glucoseon 01-22-2024 FINGERSTICK GLU 224 mg/dL High 74-106 [facility] Comment on above: Result Comment: ANI GEMENT OF PATIENT CARE PER NURSING PROTOCOL Performed By: #### L 501.080 ####[facility] [address] [place], [address] FINGERSTICK GLU 177 mg/dL High 74-106 [facility] Comment on above: Result Comment: ANI GEMENT OF PATIENT CARE PER NURSING PROTOCOL Performed By: #### L 501.080 ####[facility] [address] [place], [address] CBC W/Diff, Automatedon 10-2 Absolute Lymph 2.23 X10 3/uL Normal 0.83-4.51 [facility] Comment on above: Performed By: #### L 500.2500, L100.0100 ####[facility] [address] [place], [address] Absolute Neut 6.5 X10 3/uL Normal 2.0-7.7 [facility] Comment on above: Performed By: #### L 500.2500, L100.0100 ####[facility] [address] [place], [address] Basophils/100 WBC (Bld) 0.6 % Normal 0-1 [facility] Comment on above: Performed By: #### L 500.2500, L100.0100 ####[facility] [address] [place], [address] Eosinophils/100 WBC (Bld) 3.8 % Normal 0-5 [facility] Comment on above: Performed By: #### L 500.2500, L100.0100 ####[facility] [address] [place], [address] Erythrocyte distribution width (RBC) [Ratio] 17.5 % High 11.6-14.6 [facility] Comment on above: Performed By: #### L 500.2500, L100.0100 ####[facility] [address] [place], [address] Hematocrit (Bld) [Volume fraction] 30.9 % Low 40-54 [facility] Comment on above: Performed By: #### L 500.2500, L100.0100 ####[facility] [address] [place], [address] Hemoglobin (Bld) [Mass/Vol] 9.3 g/dL Low 13.0-16.5 [facility] Comment on above: Performed By: #### L 500.2500, L100.0100 ####[facility] [address] [place], [address] IG% 0.500 Normal 0.0-0.9 [facility] Comment on above: Result Comment: IG% - Immature Granulocytes (promyelocytes, myelocytes andmetamyelocytes) > 1% indicates that a LEFT SHIFT is Present. Performed By: #### L 500.2500, L100.0100 ####[facility] [address] [place], [address] Lymphocytes/100 WBC (Bld) 21.7 % Normal 19-41 [facility] Comment on above: Performed By: #### L 500.2500, L100.0100 ####[facility] [address] [place], [address] MCH (RBC) [Entitic mass] 23.4 pg Low 27.0-32.0 [facility] Comment on above: Performed By: #### L 500.2500, L100.0100 ####[facility] [address] [place], [address] MCHC (RBC) [Mass/Vol] 30.1 g/dL Low 32-36 [facility] Comment on above: Performed By: #### L 500.2500, L100.0100 ####[facility] [address] [place], [address] MCV (RBC) [Entitic vol] 77.6 fL Low 80-94 [facility] Comment on above: Performed By: #### L 500.2500, L100.0100 ####[facility] [address] [place], [address] Monocytes/100 WBC (Bld) 10.7 % High 0-10 [facility] Comment on above: Performed By: #### L 500.2500, L100.0100 ####[facility] [address] [place], [address] Neutrophils/100 WBC (Bld) 62.7 % Normal 47-70 [facility] Comment on above: Performed By: #### L 500.2500, L100.0100 ####[facility] [address] [place], [address] Nucleated RBC (Bld) [#/Vol] 0 10*3/uL Normal 0-5 [facility] Comment on above: Performed By: #### L 500.2500, L100.0100 ####[facility] [address] [place], [address] Platelet mean volume (Bld) [Entitic vol] 9.8 fL Normal 6.2-12.0 [facility] Comment on above: Performed By: #### L 500.2500, L100.0100 ####[facility] [address] [place], [address] Platelets (Bld) [#/Vol] 273 10*3/uL Normal 150-450 [facility] Comment on above: Performed By: #### L 500.2500, L100.0100 ####[facility] [address] [place], [address] RBC (Bld) [#/Vol] 3.98 10*6/uL Low 4.6-6.2 [facility] Comment on above: Performed By: #### L 500.2500, L100.0100 ####[facility] [address] [place], [address] RDW SD 49.5 fl High 35.1-43.9 [facility] Comment on above: Performed By: #### L 500.2500, L100.0100 ####[facility] [address] [place], [address] WBC (Bld) [#/Vol] 10.3 10*3/uL Normal 4.4-11.0 [facility] Comment on above: Performed By: #### L 500.2500, L100.0100 ####[facility] [address] [place], [address] 36on 01-21-2024 36 Patient called to inform me he is in the hospital and will not be able to make his radiology appointment tomorrow. I told patient I will call and cancel for him and gave him the number to call and reschedule when he is ready. Normal [facility] CBC panel Auto (Bld)Ordered By: Russel Sanchez on 10-05-2023 Erythrocyte distribution width (RBC) [Ratio] 17.7 % High 11.5 - 15.0 % [facility] Hematocrit (Bld) [Volume fraction] 36.7 % Low 40.0 - 52.0 % [facility] Hemoglobin (Bld) [Mass/Vol] 11.3 g/dL Low 13.0 - 18.0 g/dL [facility] Interpretation and review of laboratory results Abnormal [facility] MCH (RBC) [Entitic mass] 23.3 pg Low 26.0 - 34.0 pg [facility] MCHC (RBC) [Mass/Vol] 30.8 % 30.5 - 36.0 % [facility] MCV (RBC) [Entitic vol] 75.7 fL Low 77.0 - 99.0 fL [facility] Platelet mean volume (Bld) [Entitic vol] 10.1 fL 9.0 - 12.7 fL [facility] Platelets (Bld) [#/Vol] 221 10*3/uL 140 - 440 10*3/uL [facility] RBC (Bld) [#/Vol] 4.85 10*6/uL 4.40 - 5.9 0 10*6/uL [facility] WBC (Bld) [#/Vol] 9.9 10*3/uL 3.6 - 10.7 10*3/uL [facility] Comprehensive metabolic 1998 panelon 10-05-2023 Albumin [Mass/Vol] 4.1 g/dL 3.5 - 5.0 g/dL [facility] ALP [Catalytic activity/Vol] 101 U/L 38 - 126 U/L [facility] ALT [Catalytic activity/Vol] 21 U/L 0 - 49 U/L [facility] Anion gap [Moles/Vol] 12 mmol/L 3 - 13 mmol/L [facility] AST [Catalytic activity/Vol] 29 U/L 15 - 46 U/L [facility] Bilirubin [Mass/Vol] 1.2 mg/dL 0.2 - 1 .3 mg/dL [facility] Calcium [Mass/Vol] 9.0 mg/dL 8.4 - 10. 4 mg/dL [facility] Chloride [Moles/Vol] 102 mmol/L 98 - 10 7 mmol/L [facility] CO2 [Moles/Vol] 20 mmol/L Low 22 - 30 mmol/L [facility] Creatinine [Mass/Vol] 0.89 mg/dL 0.66 - 1.25 mg/dL [facility] GFR/1.73 sq M.predicted MDRD (S/P/Bld) [Vol rate/Area] - PINF [facility] Comment on above: Calculation based on the Chronic Kidney Disease Epidemiology Collaboration (CKD-EPI) equation refit without adjustment for race Glucose [Mass/Vol] 217 mg/dL High 70 - 100 mg/dL [facility] Interpretation and review of laboratory results Abnormal [facility] Potassium [Moles/Vol] 4.3 mmol/L 3.5 - 5.1 mmol/L [facility] Protein [Mass/Vol] 8.0 g/dL 6.3 - 8.2 g/dL [facility] Sodium [Moles/Vol] 134 mmol/L Low 135 - 145 mmol/L [facility] Urea nitrogen [Mass/Vol] 20 mg/dL 9 - 20 mg/dL [facility] Laboratory - Chemistry and C hemistry - challengeon 10-05-2023 Glucose [Mass/Vol] 215 mg/dL High 70 - 100 mg/dL [facility] Comment on above: Caregiver Notified; Glucose [Mass/Vol] 226 mg/dL High 70 - 100 mg/dL [facility] Comment on above: Caregiver Notified; No Panel InformationOrdered By: Lisa Fernandez on 10-05-2023 Heart Rate 77 bpm [facility] [employer] Work Phone: P [place] 12 degrees [facility] [employer] Work Phone: CT Interval 160 ms [facility] [employer] Work Phone: QRS [place] -16 degrees [facility] [employer] Work Phone: QRSD Interval 113 ms [facility] [employer] Work Phone: QT Interval 401 ms [employer] Work Phone: QTC Interval 453 ms [employer] Work Phone: T Wave [place] 16 degrees [employer] Work Phone: [employer] Work Phone: No Panel Informationon 10-04 Sinus rhythm Left ventricular hypertrophy Anterior Q waves, possibly due to LVH Electronically Signed On 10-05-2023 14:51:39 EDT by Lisa Fernandez CV Lisa Patton MD - 10/05/2023 IMPRESSION: Sinus rhythm Left ventricular hypertrophy Anterior Q waves, possibly due to LVH Electronically Signed On 10-05-2023 14:51:39 EDT by Lisa Fernandez [facility] Interpretation and review of laboratory results Abnormal [facility] [employer] Performed by: [facility], [address] [place] [address] CLIA ID: [id number] [facility] [employer] [facility] [employer] Interpretation and review of laboratory results Abnormal [facility] [employer] Performed by: [facility], [address] [place] [address] CLIA ID: [id number] [facility] [employer] [facility] [employer] Basic metabolic 1998 panelon 10-04-2023 Anion gap [Moles/Vol] 11 mmol/L 3 - 13 mmol/L [facility] [employer] Calcium [Mass/Vol] 9.3 mg/dL 8.4 - 10. 4 mg/dL [facility] [employer] Chloride [Moles/Vol] 105 mmol/L 98 - 10 7 mmol/L [facility] [employer] CO2 [Moles/Vol] 19 mmol/L Low 22 - 30 mmol/L [facility] [employer] Creatinine [Mass/Vol] 0.77 mg/dL 0.66 - 1.25 mg/dL [facility] [employer] GFR/1.73 sq M.predicted MDRD (S/P/Bld) [Vol rate/Area] - PINF [facility] Comment on above: Calculation based on the Chronic Kidney Disease Epidemiology Collaboration (CKD-EPI) equation refit without adjustment for race Glucose [Mass/Vol] 177 mg/dL High 70 - 100 mg/dL [facility] [employer] Interpretation and review of laboratory results Abnormal [facility] [employer] Potassium [Moles/Vol] 4.4 mmol/L 3.5 - 5.1 mmol/L [facility] Sodium [Moles/Vol] 134 mmol/L Low 135 - 145 mmol/L [facility] Urea nitrogen [Mass/Vol] 17 mg/dL 9 - 20 mg/dL [facility] CBC panel Auto (Bld)Ordered By: Eduin Brar on 10-04-2023 Erythrocyte distribution width (RBC) [Ratio] 17.9 % High 11.5 - 15.0 % [facility] Hematocrit (Bld) [Volume fraction] 39.6 % Low 40.0 - 52.0 % [facility] Hemoglobin (Bld) [Mass/Vol] 11.3 g/dL Low 13.0 - 18.0 g/dL [facility] Interpretation and review of laboratory results Abnormal [facility] MCH (RBC) [Entitic mass] 23.7 pg Low 26.0 - 34.0 pg [facility] MCHC (RBC) [Mass/Vol] 28.5 % Low 30.5 - 36.0 % [facility] MCV (RBC) [Entitic vol] 83.2 fL 77.0 - 99.0 fL [facility] Platelet mean volume (Bld) [Entitic vol] 9.5 fL 9.0 - 12.7 fL [facility] Platelets (Bld) [#/Vol] 201 10*3/uL 140 - 440 10*3/uL [facility] RBC (Bld) [#/Vol] 4.76 10*6/uL 4.40 - 5.9 0 10*6/uL [facility] WBC (Bld) [#/Vol] 8.3 10*3/uL 3.6 - 10.7 10*3/uL [facility] Laboratory - Chemistry and C hemistry - challengeon 10-04-2023 Glucose [Mass/Vol] 221 mg/dL High 70 - 100 mg/dL [facility] Glucose [Mass/Vol] 157 mg/dL High 70 - 100 mg/dL [facility] Troponin I.cardiac [Mass/Vol] ng/mL NINF - 0.034 ng/mL [facility] Glucose [Mass/Vol] 162 mg/dL High 70 - 100 mg/dL [facility] Troponin I.cardiac [Mass/Vol] ng/mL NINF - 0.034 ng/mL [facility] Glucose [Mass/Vol] 193 mg/dL High 70 - 100 mg/dL [facility] Average glucose Estimated from glycated hemoglobin (Bld) [Mass/Vol] 177 mg/dL [facility] Laboratory - Coagulationon 0 10-04-2023 aPTT Coag (PPP) [Time] 27.3 s 20.0 - 30.5 s [facility] INR Coag (PPP) [Relative time] 1.0 {INR} 0.9 - 1.1 [facility] Comment on above: Recommended Anticoag ulant [...] [Time] 10.9 s 9.0 - 12.0 s [facility] - Hematology and Cell countson 10-04-2023 HbA1c (Bld) [Mass fraction] 7.8 % High NINF - 5.7 % [facility] Comment on above: Normal less than 5.7 % Prediabetes 5.7% to 6.4% Diabetes 6.5% or higher --HgbA1C levels may not be accurate in patients who have renal disease, received recent blood transfusions, are anemic, or who have dyshemoglobinemia. Lipid 1996 panelon Cholesterol [Mass/Vol] 147 mg/dL NINF - 200 mg/dL [facility] Cholesterol in HDL [Mass/Vol] 27 mg/dL Low 40 - 60 mg/dL [facility] Cholesterol in LDL [Mass/Vol] 41 mg/dL 0 - <100 [facility] Cholesterol.total/Arsenio sterol in HDL [Mass ratio] 5 {ratio} [facility] Comment on above: Ref Range: < 3 Low Risk for CHD 3-6 Mod Risk for CHD > 6 High Risk for CHD Interpretation and review of laboratory results Abnormal [facility] Triglyceride [Mass/Vol] 397 mg/dL High NINF - 150 mg/dL [facility] No Panel Informationon 10-03 Interpretation and review of laboratory results Abnormal [facility] Performed by: [facility], [address] [place], [place] [id number] CLIA ID: [id number] [facility] Interpretation and review of laboratory results Abnormal [facility] Performed by: [facility], [address] [place] [address] CLIA ID: [id number] [facility] Interpretation and review of laboratory results Normal [facility] Addendum by Analia Zamudio MD [...] and heterogeneous plaque. Subclavian has turbulent flow. Reservations Specialist Details A carvalho scale, color Doppler imaging and spectral Doppler analysis ultrasound was performed. During the study longitudinal and transverse views were obtained. Pulsed wave doppler was performed. The exam was performed with the patient in the supine position. Overall the study quality was adequate. Study was technically difficult due to: acoustic shadowing and body habitus. [facility] Interpretation and review of laboratory results Abnormal [facility] Performed by: [facility], [address] [place] [id number] CLIA ID: [id number] [facility] Interpretation and review of laboratory results Abnormal [facility] Performed by: [facility], [address] [place] [address], [place] [address] CLIA ID: [id number] [facility] Interpretation and review of laboratory results Abnormal [facility] No Panel InformationOrdered By: Analia Zamudio on 10-04-2023 Left CCA dist EDV 36.3 cm/s [facility] Work Phone: Left CCA dist PSV 252.1 cm/s [facility] Work Phone: [phone] Left CCA mid EDV 40.30 cm/s [facility] Work Phone: [phone] Left CCA mid PSV 257.50 cm/s [facility] Work Phone: [phone] Left CCA prox EDV 34.8 cm/s [facility] Work Phone: [phone] Left CCA prox PSV 191.4 cm/s [facility] Work Phone: [phone] Left ECA EDV 18.70 cm/s [facility] Work Phone: [phone] Left ECA PSV 223.6 cm/s [facility] Work Phone: [phone] Left ICA dist EDV 23.1 cm/s [facility] Work Phone: [phone] Left ICA dist PSV 69.7 cm/s [facility] Work Phone: [phone] Left ICA mid EDV 38.3 cm/s [facility] Work Phone: [phone] Left ICA mid PSV 174.6 cm/s [facility] Work Phone: Left ICA prox EDV 28.0 cm/s [facility] Work Phone: [phone] Left ICA prox PSV 177.2 cm/s [facility] Work Phone: [phone] Left ICA/CCA PSV 0.69 [facility] Work Phone: Left vertebral EDV 6.00 cm/s [facility] Work Phone: Left vertebral PSV 27.1 cm/s [facility] [facility] Work Phone: Right CCA dist EDV 22.9 cm/s [facility] Work Phone: Right cca dist PSV 120.8 cm/s [facility] [facility] Work Phone: Right CCA mid EDV 26.50 cm/s [employer] Work Phone: Right CCA mid PSV 108.10 cm/s [employer] [facility] Work Phone: Right CCA prox EDV 28.0 cm/s [employer] Work Phone: Right CCA prox PSV 161.8 cm/s [employer] Work Phone: Right ICA dist EDV 24.7 cm/s [employer] Work Phone: Right ICA dist PSV 78.9 cm/s [employer] Work Phone: Right ICA mid EDV 30.1 cm/s [employer] Work Phone: Right ICA mid PSV 97.5 cm/s [employer] Work Phone: Right ICA prox EDV 16.0 cm/s [employer] Work Phone: Right ICA prox PSV 74.3 cm/s [employer] Work Phone: Right ICA/CCA PSV 0.90 [facility] [employer] Work Phone: Right subclavian mid EDV 9.7 cm/s [employer] Work Phone: Right subclavian mid PSV 66.0 cm/s [employer] Work Phone: Right vertebral EDV 12.00 cm/s [employer] Work Phone: Right vertebral PSV 47.5 cm/s [employer] Work Phone: Troponin I.cardiac [Mass/Vol ]on 10-04-2023 Interpretation and review of laboratory results Normal [facility] Patients with high levels of Biotin oral intake (ie >5 mg/day) may have falsely decreased Troponin levels. [facility] Interpretation and review of laboratory results Normal [facility] Patients with high levels of Biotin oral intake (ie >5 mg/day) may have falsely decreased Troponin levels. [facility] .Auto Diffon 10-03-2023 Basophil, Absolute 0.1 10 3/mcL Normal 0.0-0.2 Count includes the [facility] ([place]) Comment on above: Performed By: #### M G, GFR, ADIFF, ANEU, CBC, CMP ####[address] [place], [place] [address] Basophils/100 WBC (Bld) 1.0 % Normal 0.0-2.5 [facility] ([place]) Comment on above: Performed By: #### M G, GFR, ADIFF, ANEU, CBC, CMP ####[address] [place], [place] [address] Eosinophil, Absolute 0.4 10 3/mcL Normal 0.0-0.4 [facility] ([place]) Comment on above: Performed By: #### M G, GFR, ADIFF, ANEU, CBC, CMP ####[address] [place], [place] [address] Eosinophils/100 WBC (Bld) 5.1 % Normal 0.0-7.0 [facility] ([place]) Comment on above: Performed By: #### M G, GFR, ADIFF, ANEU, CBC, CMP ####[facility] [address] [place], [place] [address] Lymphocyte, Absolute 1.6 10 3/mcL Normal 0.8-3.9 [facility] ([place]) Comment on above: Performed By: #### M G, GFR, ADIFF, ANEU, CBC, CMP ####Jarred [address] [place], [place] [address] Lymphocytes/100 WBC (Bld) 20.4 % Normal 10.0-50.0 [facility] ([place]) Comment on above: Performed By: #### M G, GFR, ADIFF, ANEU, CBC, CMP ####Jarred [address] [place], [place] [address] Monocyte, Absolute 0.9 10 3/mcL Normal 0.2-1.0 Count includes the [facility] ([place]) Comment on above: Performed By: #### M G, GFR, ADIFF, ANEU, CBC, CMP ####Jarred [address] [place], [place] [address] Monocytes/100 WBC (Bld) 11.5 % Normal 1.7-13.0 A [facility] ([place]) Comment on above: Performed By: #### M G, GFR, ADIFF, ANEU, CBC, CMP ####Jarred [address] [place], [place] [address] Neutrophils/100 WBC (Bld) 62.0 % Normal 37.0-80.0 [facility] ([place]) Comment on above: Performed By: #### M G, GFR, ADIFF, ANEU, CBC, CMP ####Jarred [address] [place], [place] [address] .GFRon 10-03-2023 GFR Non- 72 ml/min/1.73sqm Normal [facility] ([place]) Comment on above: Result Comment: GFR Population [...] G, GFR, ADIFF, ANEU, CBC, CMP ####Jarred [address] [place], [place] [address] GFR 87 ml/min/1.73sqm Normal [facility] ([place]) Comment on above: Result Comment: GFR Population [...] GFR, ADIFF, ANEU, CBC, CMP ####Jarred [address] [place], [place] [address] .NEUABSon 10-03-2023 Neutrophil, Absolute 4.7 10 3/mcL Normal 2.9-6.2 [facility] ([place]) Comment on above: Performed By: #### M G, GFR, ADIFF, ANEU, CBC, CMP ####Jarred [address] [place], [place] [address] CBCon 10-03-2023 Erythrocyte distribution width (RBC) [Ratio] 18.3 % High 11.5-14.5 [facility] ([place]) Comment on above: Performed By: #### M G, GFR, ADIFF, ANEU, CBC, CMP ####Jarred [address] [place], [place] [address] Hematocrit (Bld) [Volume fraction] 32.0 % Low 42.0-52.0 [facility] ([place]) Comment on above: Performed By: #### M G, GFR, ADIFF, ANEU, CBC, CMP ####Jarred [address] [place], [place] [address] Hgb 10.5 G/dL Low 14.0-18.0 [facility] ([place]) Comment on above: Performed By: #### M G, GFR, ADIFF, ANEU, CBC, CMP ####Jarred [address] [place], [place] [address] MCH (RBC) [Entitic mass] 24.5 pg Low 27.0-31.2 [facility] ([place]) Comment on above: Performed By: #### M G, GFR, ADIFF, ANEU, CBC, CMP ####Jarred [address] [place], [place] [address] MCHC 32.9 G/dL Normal 31.8-35.4 [facility] ([place]) Comment on above: Performed By: #### M G, GFR, ADIFF, ANEU, CBC, CMP ####Jarred [address] [place], [place] [address] MCV (RBC) [Entitic vol] 74.3 fL Low 80.0-94.0 A [facility] ([place]) Comment on above: Performed By: #### M G, GFR, ADIFF, ANEU, CBC, CMP ####Jarred [address] [place], [place] [address] Platelet 211 10 3/mcL Normal 130-400 [facility] ([place]) Comment on above: Performed By: #### [place] G, GFR, ADIFF, ANEU, CBC, CMP ####Jarred [address] [place], [place] [address] Platelet mean volume (Bld) [Entitic vol] 7.6 fL Normal 7.4-10.4 [facility] ([place]) Comment on above: Performed By: #### M G, GFR, ADIFF, ANEU, CBC, CMP ####Jarred [address] [place], [place] [address] RBC 4.31 10 6/mcL Normal 4.04-6.13 [facility] ([place]) Comment on above: Performed By: #### M G, GFR, ADIFF, ANEU, CBC, CMP ####J[address] [place], [place] [address] WBC 7.6 10 3/mcL Normal 4.6-10.8 [facility] ([place]) Comment on above: Performed By: #### M G, GFR, ADIFF, ANEU, CBC, CMP ####J[address] [place], [place] [address] CMPon 10-03-2023 Albumin Level 3.1 G/dL Low 3.4-4.8 [facility] ([place]) Comment on above: Performed By: #### M G, GFR, ADIFF, ANEU, CBC, CMP ####J[address] [place], [place] [address] Albumin/Globulin [Mass ratio] 0.8 {ratio} Low 1.1-2.5 [facility] ([place]) Comment on above: Performed By: #### M G, GFR, ADIFF, ANEU, CBC, CMP ####Jarred [address] [place], [place] [address] ALP [Catalytic activity/Vol] 93 U/L Normal 40-135 [facility] ([place]) Comment on above: Performed By: #### M G, GFR, ADIFF, ANEU, CBC, CMP ####J[address] [place], [place] [address] ALT [Catalytic activity/Vol] 20 U/L Normal 16-63 [facility] ([place]) Comment on above: Performed By: #### M G, GFR, ADIFF, ANEU, CBC, CMP ####J[address] [place], [place] [address] AST [Catalytic activity/Vol] 15 U/L Normal 10-40 [facility] ([place]) Comment on above: Performed By: #### M G, GFR, ADIFF, ANEU, CBC, CMP ####J[address] [place], [place] [address] Bili Total 0.5 mg/dL Normal 0.2-1.0 [facility] ([place]) Comment on above: Result Comment: Use of this assay is not recommended for patients undergoing treatment with eltrombopag due to the potential for falsely elevated results. Performed By: #### M G, GFR, ADIFF, ANEU, CBC, CMP ####Jar[address] [place], [place] [address] BUN/Creatinine Ratio 17 ratio Normal 7-27 Count includes the [facility] ([place]) Comment on above: Performed By: #### M G, GFR, ADIFF, ANEU, CBC, CMP ####Jarred [address] [place], [place] [address] Calcium [Mass/Vol] 8.9 mg/dL Normal 8.4-10.2 [facility] ([place]) Comment on above: Performed By: #### M G, GFR, ADIFF, ANEU, CBC, CMP ####J[address] [place], [place] [address] Chloride [Moles/Vol] 104 mmol/L Normal 98-107 Count includes the [facility] ([place]) Comment on above: Performed By: #### M G, GFR, ADIFF, ANEU, CBC, CMP ####J[address] [place], [place] [address] CO2 [Moles/Vol] 27 mmol/L Normal 23-31 [facility] ([place]) Comment on above: Performed By: #### M G, GFR, ADIFF, ANEU, CBC, CMP ####Jarred [address] [place], [place] [address] Creatinine [Mass/Vol] 1.05 mg/dL Normal 0.70-1.30 [facility] ([place]) Comment on above: Performed By: #### M G, GFR, ADIFF, ANEU, CBC, CMP ####J[address] [place], [place] [address] Electrolyte Balance 7.0 mEq/L Normal 4.0-15.0 [facility] ([place]) Comment on above: Performed By: #### M G, GFR, ADIFF, ANEU, CBC, CMP ####J[address] [place], [place] [address] Globulin 3.9 G/dL Normal [facility] ([place]) Comment on above: Performed By: #### M G, GFR, ADIFF, ANEU, CBC, CMP ####Jar[address] [place], [place] [address] Glucose [Mass/Vol] 158 mg/dL High 80-115 [facility] ([place]) Comment on above: Performed By: #### M G, GFR, ADIFF, ANEU, CBC, CMP ####Jar[address] [place], [place] [address] Potassium [Moles/Vol] 4.5 mmol/L Normal 3.5-5.1 [facility] ([place]) Comment on above: Performed By: #### M G, GFR, ADIFF, ANEU, CBC, CMP ####J[address] [place], [place] [address] Sodium [Moles/Vol] 138 mmol/L Normal 136-145 [facility] ([place]) Comment on above: Performed By: #### M G, GFR, ADIFF, ANEU, CBC, CMP ####Jarred [address] [place], [place] [address] Total Protein 7.0 G/dL Normal 6.4-8.2 [facility] ([place]) Comment on above: Performed By: #### M G, GFR, ADIFF, ANEU, CBC, CMP ####J[address] [place], [place] [address] Urea nitrogen [Mass/Vol] 18 mg/dL Normal 7-18 [facility] ([place]) Comment on above: Performed By: #### M G, GFR, ADIFF, ANEU, CBC, CMP ####Jar[address] [place], [place] [address] CT ANGIOGRAPHY HEAD W/ CONTR Arpit 10-03-2023 [...] 10/03/2023 10:41:49 AM Ordering Provider: ABDULLAHI AGUIRRE [facility] ([place] ANGIOGRAPHY NECK W/CONTRA Tezn 10-03-2023 CT ANGIOGRAPHY NECK W/CONTRAST ORIGINAL EXAMINATION: [...] 10/03/2023 10:41:06 AM Ordering Provider: ABDULLAHI AGUIRRE [facility] ([place] CT HEAD OR BRAIN W/O CONTRAS Ton [...] 11:46:49 PM Ordering Provider: TITA Echevarria [facility] ([place]) LABORATORYOrdered By: Kwasi Rob on 10-03-2023 Blood Glucose Testing Reason Routine (10/03/23 4:43 PM) [facility] Work Phone: Glucose [Mass/Vol] 267 mg/dL High 82 - 115 mg/dL [facility] Work Phone: Blood Glucose Testing Reason Routine (10/03/23 11:39 AM) [facility] Work Phone: Glucose [Mass/Vol] 210 mg/dL High 82 - 115 mg/dL [facility] Work Phone: Blood Glucose Testing Reason Routine (10/03/23 7:58 AM) [facility] Work Phone: Glucose [Mass/Vol] 214 mg/dL High 82 - 115 mg/dL [facility] Work Phone: LABORATORYOrdered By: SYSTEM SYSTEM [...] 10-03-2023 Magnesium [Mass/Vol] 2.0 mg/dL Normal 1.8-2.4 Count includes the [facility] ([place]) Comment on above: Performed By: #### M G, GFR, ADIFF, ANEU, CBC, CMP ####Jar[address] [place], [place] [address] .Auto DiffOrdered By: SYSTEM SYSTEM on 10-02-2023 Basophil, Absolute 0.1 103/mcL Normal 0.0-0.2 AO Wo rkflow SS Comment on above: Performed By: #### C BC, ADIFF, MG, GFR, ANEU, CMP ####Jarred [address] [place], [place] [address] Basophils/100 WBC (Bld) 1.0 % Normal 0.0-2.5 A O Workflow SS Comment on above: Performed By: #### C BC, ADIFF, MG, GFR, ANEU, CMP ####Jarred [address] [place], [place] [address] Eosinophil, Absolute 0.3 103/mcL Normal 0.0-0.4 AO Workflow SS Comment on above: Performed By: #### C BC, ADIFF, MG, GFR, ANEU, CMP ####Jarred [address] [place], [place] [address] Eosinophils/100 WBC (Bld) 3.8 % Normal 0.0-7.0 AO Workflow SS Comment on above: Performed By: #### C BC, ADIFF, MG, GFR, ANEU, CMP ####Jarred [address] [place], [place] [address] Lymphocyte, Absolute 1.6 103/mcL Normal 0.8-3.9 AO Workflow SS Comment on above: Performed By: #### C BC, ADIFF, MG, GFR, ANEU, CMP ####Jarred [address] [place], [place] [address] Lymphocytes/100 WBC (Bld) 23.2 % Normal 10.0-50.0 AO Workflow SS Comment on above: Performed By: #### C BC, ADIFF, MG, GFR, ANEU, CMP ####Jarred [address] [place], [place] [address] Monocyte, Absolute 0.7 103/mcL Normal 0.2-1.0 AO Wo rkflow SS Comment on above: Performed By: #### C BC, ADIFF, MG, GFR, ANEU, CMP ####Jarred [address] [place], [place] [address] Monocytes/100 WBC (Bld) 9.7 % Normal 1.7-13.0 A O Workflow SS Comment on above: Performed By: #### C BC, ADIFF, MG, GFR, ANEU, CMP ####Jarred [address] [place], [place] [address] Neutrophils/100 WBC (Bld) 62.3 % Normal 37.0-80.0 AO Workflow SS Comment on above: Performed By: #### C BC, ADIFF, MG, GFR, ANEU, CMP ####Jarred [address] [place], [place] [address] .GFRon 10-02-2023 GFR 76 ml/min/1.73sqm Normal [facility] ([place]) Comment on above: Result Comment: GFR Population [...] BC, ADIFF, MG, GFR, ANEU, CMP ####Jarred [address] [place], [place] [address] GFR Non- 63 ml/min/1.73sqm Normal [facility] ([place]) Comment on above: Result Comment: GFR Population [...] BC, ADIFF, MG, GFR, ANEU, CMP ####Jarred [address] [place], [place] [address] .NEUABSOrdered By: SYSTEM SY STEM on 10-02-2023 Neutrophil, Absolute 4.4 103/mcL Normal 2.9-6.2 AO Workflow SS Comment on above: Performed By: #### C BC, ADIFF, MG, GFR, ANEU, CMP ####J[address] [place], [place] [address] A1Con 10-02-2023 HbA1c (Bld) [Mass fraction] 7.7 % High 4.3-6.4 [facility] ([place]) Comment on above: Performed By: #### F T4, LIPID, A1C, TSH #### Jarred [address] [place] [address] CBCOrdered By: SYSTEM SYSTEM on 10-02-2023 Erythrocyte distribution width (RBC) [Ratio] 18.7 % High 11.5-14.5 AO Workflow SS Comment on above: Performed By: #### C BC, ADIFF, MG, GFR, ANEU, CMP ####Jarred [address] [place], [place] [address] Hematocrit (Bld) [Volume fraction] 33.0 % Low 42.0-52.0 AO Workflow SS Comment on above: Performed By: #### C BC, ADIFF, MG, GFR, ANEU, CMP ####Jarred [address] [place], [place] [address] MCH (RBC) [Entitic mass] 24.6 pg Low 27.0-31.2 AO Workflow SS Comment on above: Performed By: #### C BC, ADIFF, MG, GFR, ANEU, CMP ####Jarred [address] [place], [place] [address] MCHC 32.8 G/dL Normal 31.8-35.4 AO Workflow SS Comment on above: Performed By: #### C BC, ADIFF, MG, GFR, ANEU, CMP ####Jarred [address] [place], [place] [address] MCV (RBC) [Entitic vol] 75.0 fL Low 80.0-94.0 A O Workflow SS Comment on above: Performed By: #### C BC, ADIFF, MG, GFR, ANEU, CMP ####Jarred [address] [place], [place] [address] Platelet mean volume (Bld) [Entitic vol] 7.5 fL Normal 7.4-10.4 AO Workflow SS Comment on above: Performed By: #### C BC, ADIFF, MG, GFR, ANEU, CMP ####Jarred [address] [place], [place] [address] CBCon 10-02-2023 Hgb 10.8 G/dL Low 14.0-18.0 [facility] ([place]) Comment on above: Performed By: #### C BC, ADIFF, MG, GFR, ANEU, CMP ####Jarred [address] [place], [place] [address] Platelet 220 10 3/mcL Normal 130-400 [facility] ([place]) Comment on above: Performed By: #### C BC, ADIFF, MG, GFR, ANEU, CMP ####Jarred [address] [place], [place] [address] RBC 4.40 10 6/mcL Normal 4.04-6.13 [facility] ([place]) Comment on above: Performed By: #### C BC, ADIFF, MG, GFR, ANEU, CMP ####Jarred [address] [place], [place] [address] WBC 7.0 10 3/mcL Normal 4.6-10.8 [facility] ([place]) Comment on above: Performed By: #### C BC, ADIFF, MG, GFR, ANEU, CMP ####Jarred [address] [place], [place] [address] CMPon 10-02-2023 Albumin Level 3.2 G/dL Low 3.4-4.8 [facility] ([place]) Comment on above: Performed By: #### C BC, ADIFF, MG, GFR, ANEU, CMP ####Jarred [address] [place], [place] [address] ALT [Catalytic activity/Vol] 25 U/L Normal 16-63 [facility] ([place]) Comment on above: Performed By: #### C BC, ADIFF, MG, GFR, ANEU, CMP ####Jarred [address] [place], [place] [address] AST [Catalytic activity/Vol] 17 U/L Normal 10-40 [facility] ([place]) Comment on above: Performed By: #### C BC, ADIFF, MG, GFR, ANEU, CMP ####Jarred [address] [place], [place] [address] Bili Total 0.4 mg/dL Normal 0.2-1.0 [facility] ([place]) Comment on above: Result Comment: Use of this assay is not recommended for patients undergoing treatment with eltrombopag due to the potential for falsely elevated results. Performed By: #### C BC, ADIFF, MG, GFR, ANEU, CMP ####Jarred [address] [place], [place] [address] BUN/Creatinine Ratio 21 ratio Normal 7-27 Count includes the [facility] ([place]) Comment on above: Performed By: #### C BC, ADIFF, MG, GFR, ANEU, CMP ####Jarred [address] [place], [place] [address] Total Protein 7.3 G/dL Normal 6.4-8.2 [facility] ([place]) Comment on above: Performed By: #### C BC, ADIFF, MG, GFR, ANEU, CMP ####Jarred [address] [place], [place] [address] CMPOrdered By: SYSTEM SYSTEM on 10-02-2023 Albumin/Globulin [Mass ratio] 0.8 {ratio} Low 1.1-2.5 AO ADM SS Comment on above: Performed By: #### C BC, ADIFF, MG, GFR, ANEU, CMP ####Jarred [address] [place], [place] [address] ALP [Catalytic activity/Vol] 99 U/L Normal 40-135 AO ADM SS Comment on above: Performed By: #### C BC, ADIFF, MG, GFR, ANEU, CMP ####Jarred [address] [place], [place] [address] Calcium [Mass/Vol] 8.8 mg/dL Normal 8.4-10.2 AO ADM SS Comment on above: Performed By: #### C BC, ADIFF, MG, GFR, ANEU, CMP ####[address] [address] Chloride [Moles/Vol] 105 mmol/L Normal 98-107 AO A DM SS Comment on above: Performed By: #### C BC, ADIFF, MG, GFR, ANEU, CMP ####Jarred [address] [place], [place] [address] CO2 [Moles/Vol] 24 mmol/L Normal 23-31 AO ADM SS Comment on above: Performed By: #### C BC, ADIFF, MG, GFR, ANEU, CMP ####Jarred [address] [place], [place] [address] Creatinine [Mass/Vol] 1.18 mg/dL Normal 0.70-1.30 AO ADM SS Comment on above: Performed By: #### C BC, ADIFF, MG, GFR, ANEU, CMP ####Jarred [address] [place], [place] [address] Electrolyte Balance 11.0 mEq/L Normal 4.0-15.0 AO AD M SS Comment on above: Performed By: #### C BC, ADIFF, MG, GFR, ANEU, CMP ####Jarred [address] [address] Globulin 4.1 G/dL Normal AO ADM SS Comment on above: Performed By: #### C BC, ADIFF, MG, GFR, ANEU, CMP ####Jarred [address] [address] Glucose [Mass/Vol] 80 mg/dL Normal 80-115 AO ADM SS Comment on above: Performed By: #### C BC, ADIFF, MG, GFR, ANEU, CMP ####Jarred [address] [address] Potassium [Moles/Vol] 3.9 mmol/L Normal 3.5-5.1 AO ADM SS Comment on above: Performed By: #### C BC, ADIFF, MG, GFR, ANEU, CMP ####Jarred [address] [place], [place] [address] Sodium [Moles/Vol] 140 mmol/L Normal 136-145 AO ADM SS Comment on above: Performed By: #### C BC, ADIFF, MG, GFR, ANEU, CMP ####Jarred [address] [place], [place] [address] Urea nitrogen [Mass/Vol] 25 mg/dL High 7-18 AO ADM SS Comment on above: Performed By: #### C BC, ADIFF, MG, GFR, ANEU, CMP ####Jarred [address] [place], [place] [address] FT4on 10-02-2023 Free T4 [Mass/Vol] 0.99 ng/dL Normal 0.76-1.46 [facility] ([place]) Comment on above: Performed By: #### F T4, LIPID, A1C, TSH #### Jarred [address] [place], [place] [address] LABORATORYOrdered By: SYSTEM SYSTEM on 10-02-2023 Albumin [...] 10-02-2023 Cholesterol [Mass/Vol] 182 mg/dL Normal 0-200 [facility] ([place]) Comment on above: Result Comment: Chol esterol Reference Interval: Less than 200 Desirable 200-239 Borderline high risk 240 and above High risk Performed By: #### F T4, LIPID, A1C, TSH #### [address] [address] Cholesterol in HDL [Mass/Vol] 37 mg/dL Low 40-60 [facility] ([place]) Comment on above: Performed By: #### F T4, LIPID, A1C, TSH #### [address] [address] Cholesterol in LDL [Mass/Vol] 80 mg/dL Normal 0-130 [facility] ([place]) Comment on above: Performed By: #### F T4, LIPID, A1C, TSH #### [address] [address] Triglyceride [Mass/Vol] 323 mg/dL High 0-150 A [facility] ([place]) Comment on above: Result Comment: Trig lyceride Reference Interval: Less than 150 Normal 150-199 Borderline high risk 200-499 High risk 500 or higher Very high risk Performed By: #### F T4, LIPID, A1C, TSH #### [address] [address] MGOrdered By: SYSTEM SYSTEM on 10-02-2023 Magnesium [Mass/Vol] 1.9 mg/dL Normal 1.8-2.4 AO A DM SS Comment on above: Performed By: #### C BC, ADIFF, MG, GFR, ANEU, CMP ####Jarred [address] [place], [place] [address] MRI BRAIN W/O CONTRASTon MRI BRAIN W/O [...] 8:38:30 AM Ordering Provider: CHITO Echevarria [facility] ([place]) TSHon 10-02-2023 TSH Qn 3.31 m[IU]/L Normal 0.36-3.74 [facility] ([place]) Comment on above: Performed By: #### F T4, LIPID, A1C, TSH #### Jarred [address] [address] .Auto Diffon 10-01-2023 Basophil, Absolute 0.1 10 3/mcL Normal 0.0-0.2 Count includes the [facility] ([place]) Comment on above: Performed By: #### A JORGE, CMP, ADIFF, TROPHS, CBC, GFR, MDW, MG ####Jarred [address] [place], [place] [address] Basophils/100 WBC (Bld) 1.4 % Normal 0.0-2.5 A [facility] ([place]) Comment on above: Performed By: #### A JORGE, CMP, ADIFF, TROPHS, CBC, GFR, MDW, MG ####Jarred [address] [place], [place] [address] Eosinophil, Absolute 0.4 10 3/mcL Normal 0.0-0.4 [facility] ([place]) Comment on above: Performed By: #### A JORGE, CMP, ADIFF, TROPHS, CBC, GFR, MDW, MG ####Jarred [address] [place], [place] [address] Eosinophils/100 WBC (Bld) 3.7 % Normal 0.0-7.0 [facility] ([place]) Comment on above: Performed By: #### A JORGE, CMP, ADIFF, TROPHS, CBC, GFR, MDW, MG ####Jarred [address] [place], [place] [address] Lymphocyte, Absolute 2.5 10 3/mcL Normal 0.8-3.9 [facility] ([place]) Comment on above: Performed By: #### A JORGE, CMP, ADIFF, TROPHS, CBC, GFR, MDW, MG ####Jarred [address] [place], [place] [address] Lymphocytes/100 WBC (Bld) 23.6 % Normal 10.0-50.0 [facility] ([place]) Comment on above: Performed By: #### A JORGE, CMP, ADIFF, TROPHS, CBC, GFR, MDW, MG ####Jarred [address] [place], [place] [address] Monocyte, Absolute 1.0 10 3/mcL Normal 0.2-1.0 Count includes the [facility] ([place]) Comment on above: Performed By: #### A JORGE, CMP, ADIFF, TROPHS, CBC, GFR, MDW, MG ####Jarred [address] [place], [place] [address] Monocytes/100 WBC (Bld) 9.7 % Normal 1.7-13.0 [facility] ([place]) Comment on above: Performed By: #### A JORGE, CMP, ADIFF, TROPHS, CBC, GFR, MDW, MG ####Jarred [address] [place], [place] [address] Neutrophils/100 WBC (Bld) 61.6 % Normal 37.0-80.0 [facility] ([place]) Comment on above: Performed By: #### A JORGE, CMP, ADIFF, TROPHS, CBC, GFR, MDW, MG ####Jarred [address] [place], [place] [address] .GFRon 10-01-2023 GFR 59 ml/min/1.73sqm Normal [facility] ([place]) Comment on above: Result Comment: GFR Population [...] ADIFF, TROPHS, CBC, GFR, MDW, MG ####Jarred [address] [place], [place] [address] GFR Non- 48 ml/min/1.73sqm Normal [facility] ([place]) Comment on above: Result Comment: GFR Population [...] CMP, ADIFF, TROPHS, CBC, GFR, MDW, MG ####[address] [address] .MDWon 10-01-2023 Monocyte Distribution Width 18.06 Normal 0.00-20.00 [facility] ([place]) Comment on above: Result Comment: For ED adult patients suspected of sepsis, MDW<=20.0 does not rule out sepsis or risk of sepsis Performed By: #### A JORGE, CMP, ADIFF, TROPHS, CBC, GFR, MDW, MG ####[address] [address] .NEUABSon 10-01-2023 Neutrophil, Absolute 6.5 10 3/mcL High 2.9-6.2 [facility] ([place]) Comment on above: Performed By: #### A JORGE, CMP, ADIFF, TROPHS, CBC, GFR, MDW, MG ####[place] [address] CBCon 10-01-2023 Erythrocyte distribution width (RBC) [Ratio] 18.8 % High 11.5-14.5 [facility] ([place]) Comment on above: Performed By: #### A JORGE, CMP, ADIFF, TROPHS, CBC, GFR, MDW, MG #### [address] [address] Hematocrit (Bld) [Volume fraction] 33.8 % Low 42.0-52.0 [facility] ([place]) Comment on above: Performed By: #### A JORGE, CMP, ADIFF, TROPHS, CBC, GFR, MDW, MG #### [address] [address] Hgb 11.0 G/dL Low 14.0-18.0 [facility] ([place]) Comment on above: Performed By: #### A JORGE, CMP, ADIFF, TROPHS, CBC, GFR, MDW, MG #### [address] [address] MCH (RBC) [Entitic mass] 24.3 pg Low 27.0-31.2 [facility] ([place]) Comment on above: Performed By: #### A JORGE, CMP, ADIFF, TROPHS, CBC, GFR, MDW, MG #### [address] [address] MCHC 32.5 G/dL Normal 31.8-35.4 [facility] ([place]) Comment on above: Performed By: #### A JORGE, CMP, ADIFF, TROPHS, CBC, GFR, MDW, MG #### [address] [address] MCV (RBC) [Entitic vol] 74.7 fL Low 80.0-94.0 A [facility] ([place]) Comment on above: Performed By: #### A JORGE, CMP, ADIFF, TROPHS, CBC, GFR, MDW, MG #### [address] [address] Platelet 250 10 3/mcL Normal 130-400 [facility] ([place]) Comment on above: Performed By: #### A JORGE, CMP, ADIFF, TROPHS, CBC, GFR, MDW, MG #### [address] [address] Platelet mean volume (Bld) [Entitic vol] 7.7 fL Normal 7.4-10.4 [facility] ([place]) Comment on above: Performed By: #### A JORGE, CMP, ADIFF, TROPHS, CBC, GFR, MDW, MG #### [address] [address] RBC 4.52 10 6/mcL Normal 4.04-6.13 [facility] ([place]) Comment on above: Performed By: #### A JORGE, CMP, ADIFF, TROPHS, CBC, GFR, MDW, MG #### [address] [address] WBC 10.6 10 3/mcL Normal 4.6-10.8 [facility] ([place]) Comment on above: Performed By: #### A JORGE, CMP, ADIFF, TROPHS, CBC, GFR, MDW, MG #### [address] [place], [place] [address] CMPon 10-01-2023 Albumin Level 3.4 G/dL Normal 3.4-4.8 [facility] ([place]) Comment on above: Performed By: #### A JORGE, CMP, ADIFF, TROPHS, CBC, GFR, MDW, MG ####[id number] [place], [place] [address] Albumin/Globulin [Mass ratio] 0.8 {ratio} Low 1.1-2.5 [facility] ([place]) Comment on above: Performed By: #### A JORGE, CMP, ADIFF, TROPHS, CBC, GFR, MDW, MG ####[address] [place], [place] [address] ALP [Catalytic activity/Vol] 97 U/L Normal 40-135 [facility] ([place]) Comment on above: Performed By: #### A JORGE, CMP, ADIFF, TROPHS, CBC, GFR, MDW, MG ####[address] [place], [place] [address] ALT [Catalytic activity/Vol] 24 U/L Normal 16-63 [facility] ([place] Comment on above: Performed By: #### A JORGE, CMP, ADIFF, TROPHS, CBC, GFR, MDW, MG ####[address] [place], [place] [address] AST [Catalytic activity/Vol] 19 U/L Normal 10-40 [facility] ([place] Comment on above: Performed By: #### A JORGE, CMP, ADIFF, TROPHS, CBC, GFR, MDW, MG ####[id number] [place], [place] [address] Bili Total 0.5 mg/dL Normal 0.2-1.0 [facility] ([place]) Comment on above: Result Comment: Use of this assay is not recommended for patients undergoing treatment with eltrombopag due to the potential for falsely elevated results. Performed By: #### A JORGE, CMP, ADIFF, TROPHS, CBC, GFR, MDW, MG ####[address] [place], [place] [address] BUN/Creatinine Ratio 20 ratio Normal 7-27 Count includes the [facility] ([place]) Comment on above: Performed By: #### A JORGE, CMP, ADIFF, TROPHS, CBC, GFR, MDW, MG ####[address] [place], [place] [address] Calcium [Mass/Vol] 8.9 mg/dL Normal 8.4-10.2 [facility] ([place]) Comment on above: Performed By: #### A JORGE, CMP, ADIFF, TROPHS, CBC, GFR, MDW, MG ####[address] [place], [place] [address] Chloride [Moles/Vol] 104 mmol/L Normal 98-107 Count includes the [facility] ([place]) Comment on above: Performed By: #### A JORGE, CMP, ADIFF, TROPHS, CBC, GFR, MDW, MG ####[address] [place], [place] [address] CO2 [Moles/Vol] 22 mmol/L Low 23-31 [facility] ([place]) Comment on above: Performed By: #### A JORGE, CMP, ADIFF, TROPHS, CBC, GFR, MDW, MG ####[address] [place], [place] [address] Creatinine [Mass/Vol] 1.48 mg/dL High 0.70-1.30 [facility] ([place]) Comment on above: Performed By: #### A JORGE, CMP, ADIFF, TROPHS, CBC, GFR, MDW, MG ####[address] [place], [place] [address] Electrolyte Balance 12.0 mEq/L Normal 4.0-15.0 [facility] ([place]) Comment on above: Performed By: #### A JORGE, CMP, ADIFF, TROPHS, CBC, GFR, MDW, MG ####[address] [place], [place] [address] Globulin 4.3 G/dL Normal [facility] ([place]) Comment on above: Performed By: #### A JORGE, CMP, ADIFF, TROPHS, CBC, GFR, MDW, MG ####[address] [place], [place] [address] Glucose [Mass/Vol] 151 mg/dL High 80-115 [facility] ([place]) Comment on above: Performed By: #### A JORGE, CMP, ADIFF, TROPHS, CBC, GFR, MDW, MG ####[address] [place], [place] [address] Potassium [Moles/Vol] 4.0 mmol/L Normal 3.5-5.1 [facility] ([place]) Comment on above: Performed By: #### A JORGE, CMP, ADIFF, TROPHS, CBC, GFR, MDW, MG ####[address] [place], [place] [address] Sodium [Moles/Vol] 138 mmol/L Normal 136-145 [facility] ([place]) Comment on above: Performed By: #### A JORGE, CMP, ADIFF, TROPHS, CBC, GFR, MDW, MG ####[address] [place], [place] [address] Total Protein 7.7 G/dL Normal 6.4-8.2 [facility] ([place]) Comment on above: Performed By: #### A JORGE, CMP, ADIFF, TROPHS, CBC, GFR, MDW, MG ####[address] [place], [place] [address] Urea nitrogen [Mass/Vol] 30 mg/dL High 7-18 [facility] ([place]) Comment on above: Performed By: #### A JORGE, CMP, ADIFF, TROPHS, CBC, GFR, MDW, MG ####[address] [place], [place] [address] LABORATORYOrdered By: Ronald العراقي on 10-01-2023 Appearance [...] ng/L Male: 0-76 ng/L Testing performed on [employer] using a homogeneous sandwich chemiluminescent immunoassay based on [employer] technology. Albumin BCP dye [Mass/Vol] 3.4 G/dL [...] ng/L Male: 0-76 ng/L Testing performed on [employer] using a homogeneous sandwich chemiluminescent immunoassay based on [employer] technology. Urea nitrogen [Mass/Vol] 30 mg/dL High 7 - 18 mg/dL AO ADM SS Urea nitrogen/Creatinine [Mass ratio] 20 ratio Normal 7 - 27 ratio AO ADM SS WBC (Bld) [#/Vol] 10.6 103/mcL Normal 4.6 - 10.8 10^3/mcL AO Workflow SS MGon 10-01-2023 Magnesium [Mass/Vol] 1.8 mg/dL Normal 1.8-2.4 Count includes the [facility] ([place]) Comment on above: Performed By: #### A JORGE, CMP, ADIFF, TROPHS, CBC, GFR, MDW, MG ####[address] [place], [place] [address] [facility] 10-01-2023 High Sensitivity Troponin I 9 ng/L Normal 0-76 [facility] ([place]) Comment on above: Result Comment: High Sensitive Troponin I Reference Ranges: Female: 0-51 ng/L Male: 0-76 ng/L Testing performed on [employer] using a homogeneous sandwich chemiluminescent immunoassay based on [employer] technology. Performed By: #### T [facility] #### [address] [place], [place] [address] High Sensitivity Troponin I 10 ng/L Normal 0-76 [facility] ([place]) Comment on above: Result Comment: High Sensitive Troponin I Reference Ranges: Female: 0-51 ng/L Male: 0-76 ng/L Testing performed on [employer] using a homogeneous sandwich chemiluminescent immunoassay based on [employer] technology. Performed By: #### A JORGE, CMP, ADIFF, TROPHS, CBC, GFR, MDW, MG ####[address] [place], [place] [address] UAon 10-01-2023 Color (U) Yellow Normal [facility] ([place]) Comment on above: Performed By: #### U A ####[address] [place], [place] [address] Glucose (U) [Mass/Vol] 500 mg/dL Abnormal Negative [facility] ([place]) Comment on above: Performed By: #### U A ####[address] [place], [place] [address] Ketones Ql (U) Negative Normal Negative [facility] ([place]) Comment on above: Performed By: #### U A ####[address] [place], [place] [address] UA Appear Clear Normal Clear [facility] ([place]) Comment on above: Performed By: #### U A ####[address] [place], [place] [address] UA Blood Negative Normal Negative [facility] ([place]) Comment on above: Performed By: #### U A ####[address] [place], [place] [address] UA Leuk Est Negative Normal Negative [facility] ([place]) Comment on above: Performed By: #### U A ####[address] [place], [place] [address] UA Nitrite Negative Normal Negative [facility] ([place]) Comment on above: Performed By: #### U A ####[address] [place], [place] [address] UA pH 5.5 Normal 5.0 - 8.0 [facility] ([place]) Comment on above: Performed By: #### U A ####[address] [place], [place] [address] UA Protein Negative Normal Negative [facility] ([place]) Comment on above: Performed By: #### U A ####[address] [place], [place] [address] UA Spec Grav 1.020 Normal 1.015-1.025 [facility] ([place]) Comment on above: Performed By: #### U A ####[address] [place], [place] [address] UA Specimen Type Void Normal [facility] ([place]) Comment on above: Performed By: #### U A ####[address] [place], [place] [address] UA Urobilinogen 0.2 E.U./dL Normal 0.2-1.0 [facility] ([place]) Comment on above: Performed By: #### U A ####[address] [place], [place] [address] Urobilinogen (U) [Mass/Vol] Negative Normal Negative [facility] ([place]) Comment on above: Performed By: #### U A ####[address] [place], [place] [address] XR CHEST 1 VIEWon 10-01-2023 XR CHEST [...] 9:13:56 PM Ordering Provider: TITA Echevarria [facility] ([place]) Absolute lymphocyte countOrd ered By: Fany Diaz on 08-05-2023 Lymphocytes Auto (Unsp spec) [#/Vol] 2.02 10*3/uL 0.83-4.51 [facility] Automated lymphocyte count a s percentage of total leukocytesOrdered By: Fany Diaz on 08-05-2023 Lymphocytes/100 WBC Auto (Unsp spec) 22.3 % 19-41 [facility] Basophil percentageOrdered B y: Fany Diaz on 08-05-2023 Basophil percentage 3.9 mg/dL 2.5-4.9 [facility] Basophils/100 WBC (Bld) 0.9 % 0-1 [facility] Chloride [Moles/Vol] 108 mmol/L 98-107 [facility] Eosinophils/100 WBC (Bld) 3.2 % 0-5 [facility] Glucose [Mass/Vol] 158 mg/dL 74-106 [facility] Comment on above: Fasting Glucose resu lt greater than or equal to 126 mg/dL suggests DIABETES MELLITUS per A.D.A. criteria. Hemoglobin (Bld) [Mass/Vol] 11.6 g/dL 13.0-16.5 [facility] Monocytes/100 WBC (Bld) 9.6 % 0-10 [facility] Neutrophils (Bld) [#/Vol] 5.8 10*3/uL 2.0-7.7 [facility] Neutrophils/100 WBC (Bld) 63.6 % 47-70 [facility] Potassium [Moles/Vol] 4.1 mmol/L 3.5-5.1 [facility] Sodium [Moles/Vol] 136 mmol/L 136-145 [facility] WBC (Bld) [#/Vol] 9.1 10*3/uL 4.4-11.0 [facility] Determination of erythrocyte mean corpuscular volume (MCV)Ordered By: Fany Diaz on 08-05-2023 MCV (RBC) [Entitic vol] 77.0 fL 80-94 [facility] Erythrocyte distribution wid th ratioOrdered By: Fany Diaz on 08-05-2023 Erythrocyte distribution width (RBC) [Ratio] 18.6 % 11.6-14.6 [facility] Erythrocyte distribution wid th standard deviationOrdered By: Fany Diaz on 08-05-2023 Erythrocyte distribution width (RBC) [Entitic vol] 51.4 fL 35.1-43.9 [facility] Hematocrit Auto (Bld) [Volum e fraction]Ordered By: Fany Diaz on 08-05-2023 Hematocrit (Bld) [Volume fraction] 38.1 % 40-54 [facility] Immature granulocytes/100 WB C Auto (Bld)Ordered By: [facility] on 08-05-2023 Immature granulocytes/100 WBC (Bld) 0.400 % 0.0-0.9 [facility] Comment on above: IG% - Immature Granu locytes (promyelocytes, myelocytes and metamyelocytes) > 1% indicates that a LEFT SHIFT is Present. Iron measurement (mass/mass) Ordered By: Fany Diaz on 08-05-2023 Iron (Unsp spec) [Mass/Mass] 42 ug/dL 65-175 [facility] Laboratory - Chemistry and C hemistry - challengeOrdered By: Fany Diaz on 08-05-2023 CO2 [Moles/Vol] 20.0 mmol/L 21.0-32.0 [facility] Ferritin [Mass/Vol] 20 ng/mL 26-388 [facility] Urea nitrogen/Creatinine [Mass ratio] 25.5 mg/mg 10-20 [facility] Laboratory - Hematology and Cell countsOrdered By: Fany Diaz on 08-05-2023 MCH (RBC) [Entitic mass] 23.4 pg 27.0-32.0 [facility] MCHC (RBC) [Mass/Vol] 30.4 g/dL 32-36 [facility] Nucleated RBC/100 WBC (Bld) [Ratio] 0 % 0-5 [facility] Platelet mean volume (Bld) [Entitic vol] 9.8 fL 6.2-12.0 [facility] Platelets (Bld) [#/Vol] 277 10*3/uL 150-450 [facility] No Panel InformationOrdered By: Fany Diaz on 08-05-2023 Estimated GFR (MDRD) Amer 88 mL/min >60 [facility] Comment on above: GFR Calc Estimated GFR (MDRD) Non-Af Amer 73 mL/min >60 [facility] Comment on above: Non- GFR Calc Parathyroid Hormone (Intact) 71.4 pg/mL 18.4-80.1 [facility] Total Iron Binding Capacity 383 ug/dL 250-450 [facility] RBC Auto (Bld) [#/Vol]Ordere d By: Fany Diaz on 08-05-2023 RBC (Bld) [#/Vol] 4.95 10*6/uL 4.6-6.2 [facility] Serum or plasma calcium grazyna urement (mass/volume)Ordered By: Fany Diaz on 08-05-2023 Calcium [Mass/Vol] 9.3 mg/dL 8.5-10.1 [facility] Serum or plasma creatinine m easurement (mass/volume)Ordered By: Fany Diaz on 08-05-2023 Creatinine [Mass/Vol] 1.10 mg/dL 0.70-1.30 [facility] Comment on above: The validity of the calculated GFR & GFRAA in patients over 70 years has not been determined. Clinical correlation is essential. Serum or plasma iron saturat ion measurement (mass fraction)Ordered By: Fany Diaz on 08-05-2023 Iron saturation [Mass fraction] 11.0 % 15.0-55.0 [facility] Serum or plasma urea nitroge n measurement (mass/volume)Ordered By: Fany Diaz on 08-05-2023 Urea nitrogen [Mass/Vol] 28 mg/dL 7-18 [facility] Serum or plasma uric acid me asurement (mass/volume)Ordered By: Fany Diaz on 08-05-2023 Urate [Mass/Vol] 7.3 mg/dL 3.5-7.2 [facility] Comment on above: The drugs N-Acetylcy steine and Metamizole may falsely depress this assay. Thin prep Papanicolaou smear with manual screeningOrdered By: Fany Diaz on 08-05-2023 Protein (U) [Mass/Vol] 25.0 mg/dL 0.0-11.8 [facility] Thin prep Papanicolaou smear with manual screening 3.3 g/dL 3.2-5.0 [facility] Urine creatinine measurement (mass/volume)Ordered By: [facility] on 08-05-2023 Creatinine (U) [Mass/Vol] 67.40 mg/dL NO RANGE EST. [facility] Urine protein/creatinine mas s ratioOrdered By: [facility] on 08-05-2023 Protein/Creatinine (U) [Mass ratio] 371 mg/g CRE 0-200 [facility] Basophil percentageOrdered B y: Francois Valiente on 06-06-2023 Creatinine [Mass/Vol] 1.4 mg/dL 0.70-1.30 [facility] Laboratory - Chemistry and C hemistry - challengeOrdered By: Francois Valiente on 06-06-2023 GFR/1.73 sq M.predicted among non-blacks MDRD (S/P/Bld) [Vol rate/Area] 55.0000 mL/min/{1.73_m2} >60 [facility] Laboratory - Hematology and Cell countson 05-20-2023 HbA1c (Bld) [Mass fraction] 7.5 % 4.2-6.3 [facility] Basophil percentageOrdered B y: Oren Sky on 04-25-2023 Bilirubin [Mass/Vol] 0.50 mg/dL 0.20-1.00 [facility] Comment on above: For patients on eltr ombopag therapy, use of Dimension [place] TBIL is not recommended. Chloride [Moles/Vol] 108 mmol/L 98-107 [facility] Glucose [Mass/Vol] 157 mg/dL 74-106 [facility] Comment on above: Fasting Glucose resu lt greater than or equal to 126 mg/dL suggests DIABETES MELLITUS per A.D.A. criteria. Hemoglobin (Bld) [Mass/Vol] 11.5 g/dL 13.0-16.5 [facility] Potassium [Moles/Vol] 3.9 mmol/L 3.5-5.1 [facility] Protein [Mass/Vol] 8.4 g/dL 6.4-8.2 [facility] Sodium [Moles/Vol] 135 mmol/L 136-145 [facility] WBC (Bld) [#/Vol] 10.8 10*3/uL 4.4-11.0 [facility] Determination of erythrocyte mean corpuscular volume (MCV)Ordered By: Oren Sky on 04-25-2023 MCV (RBC) [Entitic vol] 76.0 fL 80-94 [facility] Erythrocyte distribution wid th ratioOrdered By: Oren Sky on 04-25-2023 Erythrocyte distribution width (RBC) [Ratio] 18.6 % 11.6-14.6 [facility] Erythrocyte distribution wid th standard deviationOrdered By: Oren Sky on 04-25-2023 Erythrocyte distribution width (RBC) [Entitic vol] 48.6 fL 35.1-43.9 [facility] Hematocrit Auto (Bld) [Volum e fraction]Ordered By: Oren Sky on 04-25-2023 Hematocrit (Bld) [Volume fraction] 38.0 % 40-54 [facility] Laboratory - Chemistry and C hemistry - challengeOrdered By: Oren Sky on 04-25-2023 Albumin/Globulin [Mass ratio] 0.7 {ratio} 0.9-2.4 [facility] ALP [Catalytic activity/Vol] 102 U/L 45-117 [facility] ALT [Catalytic activity/Vol] 27 U/L 16-61 [facility] CO2 [Moles/Vol] 18.0 mmol/L 21.0-32.0 [facility] Globulin (S) [Mass/Vol] 4.9 g/dL 2.2-4.2 [facility] Natriuretic peptide B (Bld) [Mass/Vol] 13.4 pg/mL 0-100 [facility] Urea nitrogen/Creatinine [Mass ratio] 19.2 mg/mg 10-20 [facility] Laboratory - Hematology and Cell countsOrdered By: Oren Sky on 04-25-2023 MCH (RBC) [Entitic mass] 23.0 pg 27.0-32.0 [facility] MCHC (RBC) [Mass/Vol] 30.3 g/dL 32-36 [facility] Platelets (Bld) [#/Vol] 289 10*3/uL 150-450 [facility] No Panel InformationOrdered By: Oren Sky on 04-25-2023 Estimated GFR (MDRD) Amer 73 mL/min >60 [facility] Comment on above: GFR Calc Estimated GFR (MDRD) Non-Af Amer 60 mL/min >60 [facility] Comment on above: Non- GFR Calc Platelet mean volume Deon-Ec ker (Bld) [Entitic vol]Ordered By: Oren kSy on 04-25-2023 Platelet mean volume (Bld) [Entitic vol] 9.7 fL 6.2-12.0 [facility] RBC Auto (Bld) [#/Vol]Ordere d By: Oren Sky on 04-25-2023 RBC (Bld) [#/Vol] 5.00 10*6/uL 4.6-6.2 [facility] Serum or plasma calcium grazyna urement (mass/volume)Ordered By: Oren Sky on 04-25-2023 Calcium [Mass/Vol] 9.2 mg/dL 8.5-10.1 [facility] Serum or plasma creatinine m easurement (mass/volume)Ordered By: Oren Sky on 04-25-2023 Creatinine [Mass/Vol] 1.30 mg/dL 0.70-1.30 [facility] Comment on above: The validity of the calculated GFR & GFRAA in patients over 70 years has not been determined. Clinical correlation is essential. Serum or plasma thyroid stim ulating hormone (TSH) measurement (units/volume)Ordered By: Oren Sky on 04-25-2023 TSH Qn 1.74 uIU/mL 0.358-3.74 [facility] Serum or plasma urea nitroge n measurement (mass/volume)Ordered By: Oren Sky on 04-25-2023 Urea nitrogen [Mass/Vol] 25 mg/dL 7-18 [facility] Thin prep Papanicolaou smear with manual screeningOrdered By: Oren Sky on 04-25-2023 Thin prep Papanicolaou smear with manual screening 3.5 g/dL 3.2-5.0 [facility] Thin prep Papanicolaou smear with manual screening 17 U/L 15-37 [facility] Thin prep Papanicolaou smear with manual screening 9 5-15 [facility] Laboratory - Chemistry and C hemistry - challengeOrdered By: Jessica Gerardo on 02-26-2023 Free T4 [Mass/Vol] 0.85 ng/dL 0.76-1.46 [facility] No Panel InformationOrdered By: Jessica Gerardo on 02-26-2023 Thyroid Stimulating Hormone (TSH) 8.76 uIU/mL 0.358-3.74 [facility] Basophil percentageOrdered B y: Fany Diaz on 01-15-2023 Basophil percentage 2.8 mg/dL 2.5-4.9 [facility] Chloride [Moles/Vol] 107 mmol/L 98-107 [facility] Glucose [Mass/Vol] 74 mg/dL 74-106 [facility] Potassium [Moles/Vol] 3.2 mmol/L 3.5-5.1 [facility] Sodium [Moles/Vol] 139 mmol/L 136-145 [facility] Laboratory - Chemistry and C hemistry - challengeOrdered By: Fany Diaz on 01-15-2023 CO2 [Moles/Vol] 24.0 mmol/L 21.0-32.0 [facility] Urea nitrogen/Creatinine [Mass ratio] 10.2 mg/mg 10-20 [facility] No Panel InformationOrdered By: Fany Diaz on 01-15-2023 Estimated GFR (MDRD) Amer 74 mL/min >60 [facility] Comment on above: GFR Calc Estimated GFR (MDRD) Non-Af Amer 61 mL/min >60 [facility] Comment on above: Non- GFR Calc Serum or plasma albumin grazyna urement (mass/volume)Ordered By: Fany Diaz on 01-15-2023 Albumin [Mass/Vol] 3.2 g/dL 3.2-5.0 [facility] Serum or plasma calcium grazyna urement (mass/volume)Ordered By: Fany Diaz on 01-15-2023 Calcium [Mass/Vol] 8.7 mg/dL 8.5-10.1 [facility] Serum or plasma creatinine m easurement (mass/volume)Ordered By: Fany Diaz on 01-15-2023 Creatinine [Mass/Vol] 1.28 mg/dL 0.70-1.30 [facility] Comment on above: The validity of the calculated GFR & GFRAA in patients over 70 years has not been determined. Clinical correlation is essential. Serum or plasma urea nitroge n measurement (mass/volume)Ordered By: [facility]23 Urea nitrogen [Mass/Vol] 13 mg/dL 7-18 [facility] Urine creatinine measurement (mass/volume)Ordered By: [facility] 01-15-2023 Creatinine (U) [Mass/Vol] 73.90 mg/dL NO RANGE EST. [facility] Urine protein measurement (m ass/volume)Ordered By: [facility] on 01-15-2023 Protein (U) [Mass/Vol] 16.2 mg/dL 0.0-11.8 [facility] Urine protein/creatinine mas s ratioOrdered By: [facility] on 01-15-2023 Protein/Creatinine (U) [Mass ratio] 219 mg/g CRE 0-200 [facility] Absolute lymphocyte countOrd ered By: [facility] on 12-31-2022 Lymphocytes Auto (Unsp spec) [#/Vol] 1.76 10*3/uL 0.83-4.51 [facility] Basophil percentageOrdered B y: [facility] 12-31-2022 Basophil percentage 3.7 mg/dL 2.5-4.9 [facility] Basophils/100 WBC (Bld) 0.6 % 0-1 [facility] Chloride [Moles/Vol] 107 mmol/L 98-107 [facility] Eosinophils/100 WBC (Bld) 2.3 % 0-5 [facility] Glucose [Mass/Vol] 117 mg/dL 74-106 [facility] Comment on above: Fasting Glucose resu lt from 100 to 125 mg/dL suggests IMPAIRED HOMEOSTASIS per A.D.A. criteria. Neutrophils (Bld) [#/Vol] 7.8 10*3/uL 2.0-7.7 [facility] Neutrophils/100 WBC (Bld) 72.0 % 47-70 [facility] Potassium [Moles/Vol] 3.8 mmol/L 3.5-5.1 [facility] Sodium [Moles/Vol] 138 mmol/L 136-145 [facility] WBC (Bld) [#/Vol] 10.9 10*3/uL 4.4-11.0 [facility] Bilirubin Test strip Ql (U)O rdered By: Fany Diaz on 12-31-2022 Bilirubin Ql (U) Negative Negative [facility] Blood erythrocytes count (nu mber/volume)Ordered By: Fany Diaz on 12-31-2022 RBC (Bld) [#/Vol] 4.20 10*6/uL 4.6-6.2 [facility] Blood hemoglobin measurement (mass/volume)Ordered By: Fany Diaz on 12-31-2022 Hemoglobin (Bld) [Mass/Vol] 10.8 g/dL 13.0-16.5 [facility] Blood lymphocytes/100 leukoc ytesOrdered By: Fany Diaz on 12-31-2022 Lymphocytes/100 WBC (Bld) 16.1 % 19-41 [facility] Blood monocytes/100 leukocyt esOrdered By: Fany Diaz on 12-31-2022 Monocytes/100 WBC (Bld) 8.5 % 0-10 [facility] Blood platelet mean volumeOr dered By: Fany Diaz on 12-31-2022 Platelet mean volume (Bld) [Entitic vol] 10.1 fL 6.2-12.0 [facility] Determination of erythrocyte mean corpuscular volume (MCV)Ordered By: Fany Diaz on 12-31-2022 MCV (RBC) [Entitic vol] 82.4 fL 80-94 [facility] Hematocrit Auto (Bld) [Volum e fraction]Ordered By: Fany Diaz on 12-31-2022 Hematocrit (Bld) [Volume fraction] 34.6 % 40-54 [facility] Iron measurement (mass/mass) Ordered By: Fany Diaz on 12-31-2022 Iron (Unsp spec) [Mass/Mass] 37 ug/dL 65-175 [facility] Ketones Test strip Ql (U)Ord ered By: Fany Diaz on 12-31-2022 Ketones Ql (U) Negative Negative [facility] Laboratory - Chemistry and C hemistry - challengeOrdered By: Fany Diaz on 12-31-2022 Albumin [Mass/Vol] 3.4 g/dL 2.9-4.4 [facility] CO2 [Moles/Vol] 22.0 mmol/L 21.0-32.0 [facility] Urea nitrogen/Creatinine [Mass ratio] 21.4 mg/mg 10-20 [facility] Laboratory - Hematology and Cell countsOrdered By: Fany Diaz on 12-31-2022 Erythrocyte distribution width (RBC) [Entitic vol] 50.4 fL 35.1-43.9 [facility] Erythrocyte distribution width (RBC) [Ratio] 16.8 % 11.6-14.6 [facility] Immature granulocytes/100 WBC (Bld) 0.500 % 0.0-0.9 [facility] Comment on above: IG% - Immature Granu locytes (promyelocytes, myelocytes and metamyelocytes) > 1% indicates that a LEFT SHIFT is Present. MCH (RBC) [Entitic mass] 25.7 pg 27.0-32.0 [facility] Nucleated RBC/100 WBC (Bld) [Ratio] 0 % 0-5 [facility] MCHC Auto (RBC) [Mass/Vol]Or dered By: Fany Diaz on 12-31-2022 MCHC (RBC) [Mass/Vol] 31.2 g/dL 32-36 [facility] Nitrite Test strip Ql (U)Ord ered By: Fany Diaz on 12-31-2022 Nitrite Ql (U) Negative Negative [facility] No Panel InformationOrdered By: Fany Diaz on 12-31-2022 Addendum Document Comment . [facility] Comment on above: The SPE pattern refl ects a polyclonal increase in gammaglobulin. Hypergammaglobulinemia is found in a wide varietyof infectious, non-infectious, and autoimmune diseasestates. Evidence of monoclonal protein is not apparent. Wotrw-9-Nnwuqwqul 0.2 g/dL 0.0-0.4 [facility] Dupid-5-Mcixuwlxs 0.9 g/dL 0.4-1.0 [facility] Estimated GFR (MDRD) Amer 75 mL/min >60 [facility] Comment on above: GFR Calc Estimated GFR (MDRD) Non-Af Amer 62 mL/min >60 [facility] Comment on above: Non- GFR Calc Gamma Globulins 1.9 g/dL 0.4-1.8 [facility] Total Iron Binding Capacity 355 ug/dL 250-450 [facility] Vitamin D 25-Hydroxy 33.7 ng/mL [facility] Comment on above: Vitamin D 25(OH) Sta tus Range Deficiency <20 ng/mL (50nmol/L) Insufficiency 20 - 30 ng/mL (50 - 75 nmol/L) Sufficiency 30 - 100 ng/mL (75 - 250 nmol/L) Toxicity >100 ng/mL (>250 nmol/L) Platelets bldOrdered By: Roxi Diaz on 12-31-2022 Platelets (Bld) [#/Vol] 265 10*3/uL 150-450 [facility] Protein Fractions Elph [Inte rp]Ordered By: Fany Diaz on 12-31-2022 Protein Fractions [Interp] Comment . [facility] Comment on above: Protein electrophore sis scan will follow via computer,mail, or banquet supervisor delivery. Protein Test strip Ql (U)Ord ered By: Fany Diaz on 12-31-2022 Protein Ql (U) 15 mg/dl Negative [facility] Serum albumin to globulin ra balaji by protein electrophoresisOrdered By: Fany Diaz on 12-31-2022 Albumin/Globulin Elph [Mass ratio] 0.8 0.7-1.7 [facility] Serum globulin measurement ( mass/volume)Ordered By: Fany Diaz on 12-31-2022 Globulin (S) [Mass/Vol] 4.1 g/dL 2.2-3.9 [facility] Serum or plasma albumin grazyna urement (mass/volume)Ordered By: Fany Diaz on 12-31-2022 Albumin [Mass/Vol] 3.3 g/dL 3.2-5.0 [facility] Serum or plasma beta globuli n measurement by electrophoresis (mass/volume)Ordered By: Fany Diaz on 12-31-2022 Beta globulin Elph [Mass/Vol] 1.1 g/dL 0.7-1.3 [facility] Serum or plasma calcium grazyna urement (mass/volume)Ordered By: Fany Diaz on 12-31-2022 Calcium [Mass/Vol] 8.7 mg/dL 8.5-10.1 [facility] Serum or plasma complement C 3 measurement (mass/volume)Ordered By: Fany Diaz on 12-31-2022 Complement C3 [Mass/Vol] 159 mg/dL 82-167 [facility] Comment on above: Performed at: [address] [id number] Director: Chance Morales PhD, Phone: [phone] Serum or plasma complement C 4 measurement (mass/volume)Ordered By: Fany Diaz on 12-31-2022 Complement C4 [Mass/Vol] 26 mg/dL 12-38 [facility] Serum or plasma creatinine m easurement (mass/volume)Ordered By: Fany Diaz on 12-31-2022 Creatinine [Mass/Vol] 1.26 mg/dL 0.70-1.30 [facility] Comment on above: The validity of the calculated GFR & GFRAA in patients over 70 years has not been determined. Clinical correlation is essential. Serum or plasma ferritin elizabeth surement (mass/volume)Ordered By: Fany Diaz on 12-31-2022 Ferritin [Mass/Vol] 37 ng/mL 26-388 [facility] Serum or plasma iron saturat ion measurement (mass fraction)Ordered By: Fany Diaz on 12-31-2022 Iron saturation [Mass fraction] 10.4 % 15.0-55.0 [facility] Serum or plasma urea nitroge n measurement (mass/volume)Ordered By: Fany Diaz on 12-31-2022 Urea nitrogen [Mass/Vol] 27 mg/dL 7-18 [facility] Serum or plasma uric acid me asurement (mass/volume)Ordered By: Fany Diaz on 12-31-2022 Urate [Mass/Vol] 8.2 mg/dL 3.5-7.2 [facility] Comment on above: The drugs N-Acetylcy steine and Metamizole may falsely depress this assay. Thin prep Papanicolaou smear with manual screeningOrdered By: Fany Diaz on 10-02-2023 Thin prep Papanicolaou smear with manual screening See comment [facility] Comment on above: NOT OBSERVED Total protein bloodOrdered B y: Fany Diaz on 12-31-2022 Protein [Mass/Vol] 7.5 g/dL 6.0-8.5 [facility] Urine blood detectionOrdered By: Fany Diaz on 12-31-2022 RBC Ql (U) Negative Negative [facility] Urine clarityOrdered By: Roxi Diaz on 12-31-2022 Clarity (U) Sl. Cloudy Clear [facility] Urine color determinationOrd ered By: Fany Diaz on 12-31-2022 Color (U) Yellow Yellow [facility] Urine creatinine measurement (mass/volume)Ordered By: Fany Diaz on 12-31-2022 Creatinine (U) [Mass/Vol] 95.50 mg/dL NO RANGE EST. [facility] Urine glucose detectionOrder ed By: Fany Diaz on 12-31-2022 Glucose Ql (U) Normal mg/dl Normal [facility] Urine leukocyte esterase det ection by dipstickOrdered By: Fany Diaz on 12-31-2022 Leukocyte esterase Test strip Ql (U) Negative Negative [facility] Urine pHOrdered By: Fany Diaz on 12-31-2022 pH (U) 5.0 [pH] 5.0 - 8.0 [facility] Urine protein measurement (m ass/volume)Ordered By: Fany Diaz on 12-31-2022 Protein (U) [Mass/Vol] 15.7 mg/dL 0.0-11.8 [facility] Urine specific gravity measu rementOrdered By: Fany Diaz on 12-31-2022 Specific gravity (U) [Rel density] 1.015 1.002-1.030 [facility] Urobilinogen Auto test strip Ql (U)Ordered By: Fany Diaz on 12-31-2022 Urobilinogen Ql (U) Normal mg/dl Normal [facility] Laboratory - Hematology and Cell countson 12-10-2022 HbA1c (Bld) [Mass fraction] 7.1 % 4.2-6.3 [facility] Laboratory - Chemistry and C hemistry - challengeOrdered By: Brandt Talleyke on 11-07-2022 Natriuretic peptide B (Bld) [Mass/Vol] 9.7 pg/mL 0-100 [facility] T4 [Mass/Vol] 10.9 ug/dL 4.5-12.1 [facility] No Panel InformationOrdered By: [facility] on 11-07-2022 Thyroid Stimulating Hormone (TSH) 0.27 uIU/mL 0.358-3.74 [facility] Total Triiodothyronine 1.16 ng/mL 0.6-1.81 [facility] Absolute lymphocyte countOrd ered By: [facility] on 10-31-2022 Lymphocytes Auto (Unsp spec) [#/Vol] 1.83 10*3/uL 0.83-4.51 [facility] Basophil percentageOrdered B y: Brandt Talleyke on 10-31-2022 Basophils/100 WBC (Bld) 0.6 % 0-1 [facility] Bilirubin [Mass/Vol] 0.60 mg/dL 0.20-1.00 [facility] Comment on above: For patients on eltr ombopag therapy, use of Dimension [place] TBIL is not recommended. Chloride [Moles/Vol] 107 mmol/L 98-107 [facility] Eosinophils/100 WBC (Bld) 3.8 % 0-5 [facility] Glucose [Mass/Vol] 119 mg/dL 74-106 [facility] Comment on above: Fasting Glucose resu lt from 100 to 125 mg/dL suggests IMPAIRED HOMEOSTASIS per A.D.A. criteria. Neutrophils (Bld) [#/Vol] 4.7 10*3/uL 2.0-7.7 [facility] Neutrophils/100 WBC (Bld) 59.2 % 47-70 [facility] Potassium [Moles/Vol] 4.9 mmol/L 3.5-5.1 [facility] Protein [Mass/Vol] 8.9 g/dL 6.4-8.2 [facility] Sodium [Moles/Vol] 135 mmol/L 136-145 [facility] WBC (Bld) [#/Vol] 7.9 10*3/uL 4.4-11.0 [facility] Blood erythrocytes count (nu mber/volume)Ordered By: Brandt Winter on 10-31-2022 RBC (Bld) [#/Vol] 3.94 10*6/uL 4.6-6.2 [facility] Blood hemoglobin measurement (mass/volume)Ordered By: Brandt Winter on 10-31-2022 Hemoglobin (Bld) [Mass/Vol] 10.4 g/dL 13.0-16.5 [facility] Blood lymphocytes/100 leukoc ytesOrdered By: Brandt Winter on 10-31-2022 Lymphocytes/100 WBC (Bld) 23.2 % 19-41 [facility] Blood monocytes/100 leukocyt esOrdered By: Brandt Winter on 10-31-2022 Monocytes/100 WBC (Bld) 12.7 % 0-10 [facility] Blood platelet mean volumeOr dered By: Brandt Winter on 10-31-2022 Platelet mean volume (Bld) [Entitic vol] 10.2 fL 6.2-12.0 [facility] Determination of erythrocyte mean corpuscular volume (MCV)Ordered By: Brandt Winter on 10-31-2022 MCV (RBC) [Entitic vol] 81.0 fL 80-94 [facility] Hematocrit Auto (Bld) [Volum e fraction]Ordered By: Brandt Winter on 10-31-2022 Hematocrit (Bld) [Volume fraction] 31.9 % 40-54 [facility] Iron measurement (mass/mass) Ordered By: Brandt Winter on 10-31-2022 Iron (Unsp spec) [Mass/Mass] 35 ug/dL 65-175 [facility] Laboratory - Chemistry and C hemistry - challengeOrdered By: [facility] on 10-31-2022 ALP [Catalytic activity/Vol] 103 U/L 45-117 [facility] ALT [Catalytic activity/Vol] 24 U/L 16-61 [facility] CO2 [Moles/Vol] 19.0 mmol/L 21.0-32.0 [facility] Globulin (S) [Mass/Vol] 5.8 g/dL 2.2-4.2 [facility] Urea nitrogen/Creatinine [Mass ratio] 27.0 mg/mg 10-20 [facility] Laboratory - Hematology and Cell countsOrdered By: Brandt Winter on 10-31-2022 Erythrocyte distribution width (RBC) [Entitic vol] 49.3 fL 35.1-43.9 [facility] Erythrocyte distribution width (RBC) [Ratio] 16.7 % 11.6-14.6 [facility] Immature granulocytes/100 WBC (Bld) 0.500 % 0.0-0.9 [facility] Comment on above: IG% - Immature Granu locytes (promyelocytes, myelocytes and metamyelocytes) > 1% indicates that a LEFT SHIFT is Present. MCH (RBC) [Entitic mass] 26.4 pg 27.0-32.0 [facility] Nucleated RBC/100 WBC (Bld) [Ratio] 0 % 0-5 [facility] MCHC Auto (RBC) [Mass/Vol]Or dered By: Brandt Winter on 10-31-2022 MCHC (RBC) [Mass/Vol] 32.6 g/dL 32-36 [facility] No Panel InformationOrdered By: Brandt Winter on 10-31-2022 Estimated GFR (MDRD) Amer 61 mL/min >60 [facility] Comment on above: GFR Calc Estimated GFR (MDRD) Non-Af Amer 50 mL/min >60 [facility] Comment on above: Non- GFR Calc Thyroid Stimulating Hormone (TSH) 0.23 uIU/mL 0.358-3.74 [facility] Total Iron Binding Capacity 274 ug/dL 250-450 [facility] Vitamin D 25-Hydroxy 12.1 ng/mL [facility] Comment on above: Vitamin D 25(OH) Sta tus Range Deficiency <20 ng/mL (50nmol/L) Insufficiency 20 - 30 ng/mL (50 - 75 nmol/L) Sufficiency 30 - 100 ng/mL (75 - 250 nmol/L) Toxicity >100 ng/mL (>250 nmol/L) Platelets bldOrdered By: Ximena Winter on 10-31-2022 Platelets (Bld) [#/Vol] 253 10*3/uL 150-450 [facility] Serum or plasma albumin grazyna urement (mass/volume)Ordered By: Brandt Winter on 10-31-2022 Albumin [Mass/Vol] 3.1 g/dL 3.2-5.0 [facility] Serum or plasma albumin/glob ulin mass ratioOrdered By: Brandt Winter on 10-31-2022 Albumin/Globulin [Mass ratio] 0.5 {ratio} 0.9-2.4 [facility] Serum or plasma calcium grazyna urement (mass/volume)Ordered By: Brandt Winter on 10-31-2022 Calcium [Mass/Vol] 9.1 mg/dL 8.5-10.1 [facility] Serum or plasma creatinine m easurement (mass/volume)Ordered By: Brandt Winter on 10-31-2022 Creatinine [Mass/Vol] 1.52 mg/dL 0.70-1.30 [facility] Comment on above: The validity of the calculated GFR & GFRAA in patients over 70 years has not been determined. Clinical correlation is essential. Serum or plasma ferritin elizabeth surement (mass/volume)Ordered By: Brandt Winter on 10-31-2022 Ferritin [Mass/Vol] 158 ng/mL 26-388 [facility] Serum or plasma iron saturat ion measurement (mass fraction)Ordered By: Brandt Winter on 10-31-2022 Iron saturation [Mass fraction] 12.8 % 15.0-55.0 [facility] Serum or plasma urea nitroge n measurement (mass/volume)Ordered By: Brandt Winter on 10-31-2022 Urea nitrogen [Mass/Vol] 41 mg/dL 7-18 [facility] Thin prep Papanicolaou smear with manual screeningOrdered By: Brandt Winter on 10-31-2022 Thin prep Papanicolaou smear with manual screening 22 U/L 15-37 [facility] Thin prep Papanicolaou smear with manual screening 9 5-15 [facility] Glucose Glucometer (BldC) [M ass/Vol]Ordered By: Dr. Ospina on 08-03-2022 Glucose [Mass/Vol] 343 mg/dL 74-106 [facility] Comment on above: MANAGEMENT OF PATIEN T CARE PER NURSING PROTOCOL Absolute lymphocyte countOrd ered By: Dr. Bell on 08-02-2022 Lymphocytes Auto (Unsp spec) [#/Vol] 1.27 10*3/uL 0.83-4.51 [facility] Basophil percentageOrdered B y: Dr. Bell on 08-02-2022 Basophils/100 WBC (Bld) 0.8 % 0-1 [facility] Bilirubin [Mass/Vol] 0.50 mg/dL 0.20-1.00 [facility] Comment on above: For patients on eltr ombopag therapy, use of Dimension [place] TBIL is not recommended. Chloride [Moles/Vol] 104 mmol/L 98-107 [facility] Cholesterol [Mass/Vol] 133 mg/dL <200 [facility] Comment on above: <200 mg/dL Desirable 200-240 mg/dL Borderline >240 mg/dL High Risk Eosinophils/100 WBC (Bld) 3.1 % 0-5 [facility] Glucose [Mass/Vol] 280 mg/dL 74-106 [facility] Comment on above: Glucose result great er than or equal to 200 mg/dLsuggests DIABETES MELLITUS per A.D.A. criteria. Neutrophils (Bld) [#/Vol] 3.5 10*3/uL 2.0-7.7 [facility] Neutrophils/100 WBC (Bld) 59.7 % 47-70 [facility] Potassium [Moles/Vol] 4.0 mmol/L 3.5-5.1 [facility] Protein [Mass/Vol] 7.6 g/dL 6.4-8.2 [facility] Sodium [Moles/Vol] 135 mmol/L 136-145 [facility] Triglyceride [Mass/Vol] 300 mg/dL <199 [facility] Comment on above: The drugs N-Acetylcy steine and Metamizole may falsely depress this assay.Serum Triglycerides Reference Interval Normal <150 mg/dL Borderline high 150 - 199 mg/dL High 200 - 499 mg/dL Very High > or = 500 mg/dL WBC (Bld) [#/Vol] 5.9 10*3/uL 4.4-11.0 [facility] Blood erythrocytes count (nu mber/volume)Ordered By: Dr. Bell on 08-02-2022 RBC (Bld) [#/Vol] 4.27 10*6/uL 4.6-6.2 [facility] Blood hemoglobin measurement (mass/volume)Ordered By: Dr. Bell on 08-02-2022 Hemoglobin (Bld) [Mass/Vol] 10.7 g/dL 13.0-16.5 [facility] Blood lymphocytes/100 leukoc ytesOrdered By: Dr. Bell on 08-02-2022 Lymphocytes/100 WBC (Bld) 21.5 % 19-41 [facility] Blood monocytes/100 leukocyt esOrdered By: Dr. Bell on 08-02-2022 Monocytes/100 WBC (Bld) 14.4 % 0-10 [facility] Blood platelet mean volumeOr dered By: Dr. Bell on 08-02-2022 Platelet mean volume (Bld) [Entitic vol] 9.9 fL 6.2-12.0 [facility] Determination of erythrocyte mean corpuscular volume (MCV)Ordered By: Dr. Bell on 08-02-2022 MCV (RBC) [Entitic vol] 78.9 fL 80-94 [facility] Hematocrit Auto (Bld) [Volum e fraction]Ordered By: Dr. Bell on 08-02-2022 Hematocrit (Bld) [Volume fraction] 33.7 % 40-54 [facility] Laboratory - Chemistry and C hemistry - challengeOrdered By: Dr. Bell on 08-02-2022 ALP [Catalytic activity/Vol] 118 U/L 45-117 [facility] ALT [Catalytic activity/Vol] 25 U/L 16-61 [facility] CO2 [Moles/Vol] 20.0 mmol/L 21.0-32.0 [facility] Globulin (S) [Mass/Vol] 4.4 g/dL 2.2-4.2 [facility] Urea nitrogen/Creatinine [Mass ratio] 21.7 mg/mg 10-20 [facility] Laboratory - Hematology and Cell countsOrdered By: Dr. Bell on 08-02-2022 Erythrocyte distribution width (RBC) [Entitic vol] 46.5 fL 35.1-43.9 [facility] Erythrocyte distribution width (RBC) [Ratio] 16.4 % 11.6-14.6 [facility] Immature granulocytes/100 WBC (Bld) 0.500 % 0.0-0.9 [facility] Comment on above: IG% - Immature Granu locytes (promyelocytes, myelocytes and metamyelocytes) > 1% indicates that a LEFT SHIFT is Present. MCH (RBC) [Entitic mass] 25.1 pg 27.0-32.0 [facility] Nucleated RBC/100 WBC (Bld) [Ratio] 0 % 0-5 [facility] MCHC Auto (RBC) [Mass/Vol]Or dered By: Dr. Bell on 08-02-2022 MCHC (RBC) [Mass/Vol] 31.8 g/dL 32-36 [facility] No Panel InformationOrdered By: Dr. Bell on 08-02-2022 Estimated Creatinine Clearance Calc 83.01 ml/min [facility] Estimated GFR (MDRD) Amer 102 mL/min >60 [facility] Comment on above: GFR Calc Estimated GFR (MDRD) Non-Af Amer 84 mL/min >60 [facility] Comment on above: Non- GFR Calc Thyroid Stimulating Hormone (TSH) 1.36 uIU/mL 0.358-3.74 [facility] Platelets bldOrdered By: Dr. Bell on 08-02-2022 Platelets (Bld) [#/Vol] 193 10*3/uL 150-450 [facility] Serum or plasma albumin grazyna urement (mass/volume)Ordered By: Dr. Bell on 08-02-2022 Albumin [Mass/Vol] 3.2 g/dL 3.2-5.0 [facility] Serum or plasma albumin/glob ulin mass ratioOrdered By: Dr. Bell on 08-02-2022 Albumin/Globulin [Mass ratio] 0.7 {ratio} 0.9-2.4 [facility] Serum or plasma calcium grazyna urement (mass/volume)Ordered By: Dr. Bell on 08-02-2022 Calcium [Mass/Vol] 9.0 mg/dL 8.5-10.1 [facility] Serum or plasma cholesterol in HDL measurement (mass/volume)Ordered By: Dr. Bell on 08-02-2022 Cholesterol in HDL [Mass/Vol] 33 mg/dL >40 [facility] Comment on above: The drugs N-Acetylcy steine and Metamizole may falsely depress this assay. Reference Range HDL <40 mg/dL Low HDL Cholesterol HDL >or= 60 mg/dL High HDL Cholesterol Serum or plasma cholesterol in VLDL measurement (mass/volume)Ordered By: Dr. Bell on 08-02-2022 Cholesterol in VLDL [Mass/Vol] 60 mg/dL 5-40 [facility] Serum or plasma creatinine m easurement (mass/volume)Ordered By: Dr. Bell on 08-02-2022 Creatinine [Mass/Vol] 0.97 mg/dL 0.70-1.30 [facility] Comment on above: The validity of the calculated GFR & GFRAA in patients over 70 years has not been determined. Clinical correlation is essential. Serum or plasma low density lipoprotein (LDL) cholesterol measurement (mass/volume)Ordered By: Dr. Bell on 08-02-2022 Cholesterol in LDL [Mass/Vol] 40 mg/dL 0-130 [facility] Serum or plasma urea nitroge n measurement (mass/volume)Ordered By: Dr. Bell on 08-02-2022 Urea nitrogen [Mass/Vol] 21 mg/dL 7-18 [facility] Thin prep Papanicolaou smear with manual screeningOrdered By: Dr. Bell on 08-02-2022 Thin prep Papanicolaou smear with manual screening 18 U/L 15-37 [facility] Thin prep Papanicolaou smear with manual screening 11 5-15 [facility] Whole blood hemoglobin A1c/t otal hemoglobin ratio (mass fraction)Ordered By: Dr. Bell on 08-02-2022 HbA1c (Bld) [Mass fraction] 9.6 % 3.8-5.6 [facility] Comment on above: Normal < 5.7 % Predi abetic 5.7 - 6.4 % Diabetic >or= 6.5 % Please note range changes. INR in Blood by Coagulation assayOrdered By: ED PROVIDER on 08-01-2022 INR Coag (Bld) [Relative time] 1.1 {INR} [facility] Laboratory - Chemistry and C hemistry - challengeOrdered By: Dr. Bell on 08-01-2022 Magnesium [Mass/Vol] 1.7 mg/dL 1.6-2.6 [facility] Laboratory - CoagulationOrde red By: ED PROVIDER on 08-01-2022 aPTT Coag (Bld) [Time] 28.7 s 24.1-36.2 [facility] PT Coag (PPP) [Time] 13.8 s 11.7-14.9 [facility] No Panel InformationOrdered By: Dr. Hill on 08-01-2022 Troponin I High Sensitivity 9 pg/mL 3.0-78.0 [facility] Comment on above: Please Note: New Karly t Units and Gender Specific Reference Ranges. For more information see Policy Stat Procedure [place] High Sensitivity Troponin (TNIH) and attachments. Basophil percentageOrdered B y: Oren Sky on 06-26-2022 Chloride [Moles/Vol] 104 mmol/L 98-107 [facility] Glucose [Mass/Vol] 224 mg/dL 74-106 [facility] Comment on above: Glucose result great er than or equal to 200 mg/dLsuggests DIABETES MELLITUS per A.D.A. criteria. Potassium [Moles/Vol] 4.6 mmol/L 3.5-5.1 [facility] Sodium [Moles/Vol] 134 mmol/L 136-145 [facility] Basophil percentageOrdered B y: Jessica Gerardo on 06-26-2022 Cholesterol [Mass/Vol] 145 mg/dL <200 [facility] Comment on above: <200 mg/dL Desirable 200-240 mg/dL Borderline >240 mg/dL High Risk Testosterone [Mass/Vol] 122 ng/dL 264-916 [facility] Comment on above: Adult male reference interval is based on a population ofhealthy nonobese males (BMI <30) between 19 and 39 yearsold. Dina, et.al. JCEM 2017,102;[id number]. PMID:[id number]. Triglyceride [Mass/Vol] 271 mg/dL <199 [facility] Comment on above: The drugs N-Acetylcy steine and Metamizole may falsely depress this assay.Serum Triglycerides Reference Interval Normal <150 mg/dL Borderline high 150 - 199 mg/dL High 200 - 499 mg/dL Very High > or = 500 mg/dL Free testosterone percentage Ordered By: Jessica Gerardo on 06-26-2022 Testosterone Free/Testosterone.total [Mass fraction] 3.10 % 1.50-4.20 [facility] Comment on above: Performed at: [address] [id number] Director: Chance Morales PhD, Phone: [phone] at: [facility] [id number] Director: Rhina Norris MD, Phone: [phone] Laboratory - Chemistry and C hemistry - challengeOrdered By: Oren Sky on 06-26-2022 CO2 [Moles/Vol] 23.0 mmol/L 21.0-32.0 [facility] Urea nitrogen/Creatinine [Mass ratio] 30.7 mg/mg 10-20 [facility] Laboratory - Chemistry and C hemistry - challengeOrdered By: Jessica Gerardo on 06-26-2022 Free T4 [Mass/Vol] 1.33 ng/dL 0.76-1.46 [facility] No Panel InformationOrdered By: Oren Sky on 06-26-2022 Estimated GFR (MDRD) Amer 60 mL/min >60 [facility] Comment on above: GFR Calc Estimated GFR (MDRD) Non-Af Amer 50 mL/min >60 [facility] [facility] Comment on above: Non- GFR Calc No Panel InformationOrdered By: Jessica Gerardo on 06-26-2022 Thyroid Stimulating Hormone (TSH) 1.59 uIU/mL 0.358-3.74 [facility] Urine Microalbumin/Creatinine Ratio 72.5 mg/g CRE <30 [facility] Serum or plasma calcium grazyna urement (mass/volume)Ordered By: Oren Sky on 06-26-2022 Calcium [Mass/Vol] 9.0 mg/dL 8.5-10.1 [facility] Serum or plasma cholesterol in HDL measurement (mass/volume)Ordered By: Jessica Gerardo on 06-26-2022 Cholesterol in HDL [Mass/Vol] 36 mg/dL >40 [facility] Comment on above: The drugs N-Acetylcy steine and Metamizole may falsely depress this assay. Reference Range HDL <40 mg/dL Low HDL Cholesterol HDL >or= 60 mg/dL High HDL Cholesterol Serum or plasma cholesterol in VLDL measurement (mass/volume)Ordered By: Jessica Gerardo on 06-26-2022 Cholesterol in VLDL [Mass/Vol] 54 mg/dL 5-40 [facility] Serum or plasma creatinine m easurement (mass/volume)Ordered By: Oren Sky on 06-26-2022 Creatinine [Mass/Vol] 1.53 mg/dL 0.70-1.30 [facility] Comment on above: The validity of the calculated GFR & GFRAA in patients over 70 years has not been determined. Clinical correlation is essential. Serum or plasma low density lipoprotein (LDL) cholesterol measurement (mass/volume)Ordered By: Jessica Gerardo on 06-26-2022 Cholesterol in LDL [Mass/Vol] 55 mg/dL 0-130 [facility] Serum or plasma testosterone free measurement (mass/volume)Ordered By: Jessica Gerardo on 06-26-2022 Testosterone Free [Mass/Vol] 3.78 ng/dL 5.00-21.00 [facility] Serum or plasma urea nitroge n measurement (mass/volume)Ordered By: Oren Sky on 06-26-2022 Urea nitrogen [Mass/Vol] 47 mg/dL 7-18 [facility] Thin prep Papanicolaou smear with manual screeningOrdered By: Oren Sky on 06-26-2022 Thin prep Papanicolaou smear with manual screening 7 5-15 [facility] Thin prep Papanicolaou smear with manual screeningOrdered By: Jessica Gerardo on 06-26-2022 Thin prep Papanicolaou smear with manual screening 51.1 mg/L NO RANGE EST. [facility] Urine creatinine measurement (mass/volume)Ordered By: Jessica Gerardo on 06-26-2022 Creatinine (U) [Mass/Vol] 70.50 mg/dL NO RANGE EST. [facility] Laboratory - Hematology and Cell countson 06-18-2022 HbA1c (Bld) [Mass fraction] 8.2 % [facility] Basophil percentageOrdered B y: Lydia Segura on 05-18-2022 Chloride [Moles/Vol] 106 mmol/L 98-107 [facility] Glucose [Mass/Vol] 251 mg/dL 74-106 [facility] Comment on above: Glucose result great er than or equal to 200 mg/dLsuggests DIABETES MELLITUS per A.D.A. criteria. Potassium [Moles/Vol] 3.8 mmol/L 3.5-5.1 [facility] Sodium [Moles/Vol] 135 mmol/L 136-145 [facility] Laboratory - Chemistry and C hemistry - challengeOrdered By: Lydia Segura on 05-18-2022 CO2 [Moles/Vol] 21.0 mmol/L 21.0-32.0 [facility] Urea nitrogen/Creatinine [Mass ratio] 19.4 mg/mg 10-20 [facility] No Panel InformationOrdered By: Lydia Segura on 05-18-2022 Estimated GFR (MDRD) Amer 90 mL/min >60 [facility] Comment on above: GFR Calc Estimated GFR (MDRD) Non-Af Amer 75 mL/min >60 [facility] Comment on above: Non- GFR Calc Serum or plasma calcium grazyna urement (mass/volume)Ordered By: Lydia Sgeura on 05-18-2022 Calcium [Mass/Vol] 8.6 mg/dL 8.5-10.1 [facility] Serum or plasma creatinine m easurement (mass/volume)Ordered By: Lydia Segura on 05-18-2022 Creatinine [Mass/Vol] 1.08 mg/dL 0.70-1.30 [facility] Comment on above: The validity of the calculated GFR & GFRAA in patients over 70 years has not been determined. Clinical correlation is essential. Serum or plasma urea nitroge n measurement (mass/volume)Ordered By: Lydia Segura on 05-18-2022 Urea nitrogen [Mass/Vol] 21 mg/dL 7-18 [facility] Thin prep Papanicolaou smear with manual screeningOrdered By: Lydia Segura on 05-18-2022 Thin prep Papanicolaou smear with manual screening 8 5-15 [facility] Absolute lymphocyte countOrd ered By: Oren Sky on 04-17-2022 Lymphocytes Auto (Unsp spec) [#/Vol] 2.25 10*3/uL 0.83-4.51 [facility] Basophil percentageOrdered B y: Oren Sky on 04-17-2022 Basophils/100 WBC (Bld) 1.1 % 0-1 [facility] Chloride [Moles/Vol] 102 mmol/L 98-107 [facility] Eosinophils/100 WBC (Bld) 3.3 % 0-5 [facility] Glucose [Mass/Vol] 263 mg/dL 74-106 [facility] Comment on above: Glucose result great er than or equal to 200 mg/dLsuggests DIABETES MELLITUS per A.D.A. criteria. Neutrophils (Bld) [#/Vol] 5.0 10*3/uL 2.0-7.7 [facility] Neutrophils/100 WBC (Bld) 59.8 % 47-70 [facility] Potassium [Moles/Vol] 4.0 mmol/L 3.5-5.1 [facility] Sodium [Moles/Vol] 135 mmol/L 136-145 [facility] WBC (Bld) [#/Vol] 8.4 10*3/uL 4.4-11.0 [facility] Blood erythrocytes count (nu mber/volume)Ordered By: Oren Sky on 04-17-2022 RBC (Bld) [#/Vol] 4.44 10*6/uL 4.6-6.2 [facility] Blood hemoglobin measurement (mass/volume)Ordered By: Oren Sky on 04-17-2022 Hemoglobin (Bld) [Mass/Vol] 11.1 g/dL 13.0-16.5 [facility] Blood lymphocytes/100 leukoc ytesOrdered By: Oren Sky on 04-17-2022 Lymphocytes/100 WBC (Bld) 26.8 % 19-41 [facility] Blood monocytes/100 leukocyt esOrdered By: Oren Sky on 04-17-2022 Monocytes/100 WBC (Bld) 8.6 % 0-10 [facility] Blood platelet mean volumeOr dered By: Oren Sky on 04-17-2022 Platelet mean volume (Bld) [Entitic vol] 10.3 fL 6.2-12.0 [facility] Determination of erythrocyte mean corpuscular volume (MCV)Ordered By: Oren Sky on 04-17-2022 MCV (RBC) [Entitic vol] 80.2 fL 80-94 [facility] Hematocrit Auto (Bld) [Volum e fraction]Ordered By: Oren Sky on 04-17-2022 Hematocrit (Bld) [Volume fraction] 35.6 % 40-54 [facility] Iron measurement (mass/mass) Ordered By: Oren Sky on 04-17-2022 Iron (Unsp spec) [Mass/Mass] 48 ug/dL 65-175 [facility] Laboratory - Chemistry and C hemistry - challengeOrdered By: Oren Sky on 04-17-2022 CO2 [Moles/Vol] 22.0 mmol/L 21.0-32.0 [facility] Natriuretic peptide B (Bld) [Mass/Vol] 37.2 pg/mL 0-100 [facility] Urea nitrogen/Creatinine [Mass ratio] 25.8 mg/mg 10-20 [facility] Laboratory - Hematology and Cell countsOrdered By: Oren Sky on 04-17-2022 Erythrocyte distribution width (RBC) [Entitic vol] 50.0 fL 35.1-43.9 [facility] Erythrocyte distribution width (RBC) [Ratio] 17.2 % 11.6-14.6 [facility] Immature granulocytes/100 WBC (Bld) 0.400 % 0.0-0.9 [facility] Comment on above: IG% - Immature Granu locytes (promyelocytes, myelocytes and metamyelocytes) > 1% indicates that a LEFT SHIFT is Present. MCH (RBC) [Entitic mass] 25.0 pg 27.0-32.0 [facility] Nucleated RBC/100 WBC (Bld) [Ratio] 0 % 0-5 [facility] MCHC Auto (RBC) [Mass/Vol]Or dered By: Oren Sky on 04-17-2022 MCHC (RBC) [Mass/Vol] 31.2 g/dL 32-36 [facility] No Panel InformationOrdered By: Oren Sky on 04-17-2022 Estimated GFR (MDRD) Amer 77 mL/min >60 [facility] Comment on above: GFR Calc Estimated GFR (MDRD) Non-Af Amer 64 mL/min >60 [facility] Comment on above: Non- GFR Calc Total Iron Binding Capacity 350 ug/dL 250-450 [facility] Platelets bldOrdered By: Jose Sky on 04-17-2022 Platelets (Bld) [#/Vol] 268 10*3/uL 150-450 [facility] Serum or plasma calcium grazyna urement (mass/volume)Ordered By: Oren Sky on 04-17-2022 Calcium [Mass/Vol] 8.9 mg/dL 8.5-10.1 [facility] Serum or plasma creatinine m easurement (mass/volume)Ordered By: Oren Sky on 04-17-2022 Creatinine [Mass/Vol] 1.24 mg/dL 0.70-1.30 [facility] Comment on above: The validity of the calculated GFR & GFRAA in patients over 70 years has not been determined. Clinical correlation is essential. Serum or plasma iron saturat ion measurement (mass fraction)Ordered By: Oren Sky on 04-17-2022 Iron saturation [Mass fraction] 13.7 % 15.0-55.0 [facility] Serum or plasma urea nitroge n measurement (mass/volume)Ordered By: Oren Sky on 04-17-2022 Urea nitrogen [Mass/Vol] 32 mg/dL 7-18 [facility] Thin prep Papanicolaou smear with manual screeningOrdered By: Oren Sky on 04-17-2022 Thin prep Papanicolaou smear with manual screening 11 5-15 [facility] Laboratory - Hematology and Cell countson 01-15-2022 HbA1c (Bld) [Mass fraction] 8.3 % [facility] Absolute lymphocyte counton 09-04-2021 Lymphocytes Auto (Unsp spec) [#/Vol] 1.59 10*3/uL 0.83-4.51 [facility] Work Phone: Basophil percentageon 2021 Basophils/100 WBC (Bld) 0.5 % 0-1 [facility] Work Phone: Bilirubin [Mass/Vol] 0.60 mg/dL 0.20-1.00 [facility] Work Phone: Comment on above: For patients on eltr ombopag therapy, use of Dimension [place] TBIL is not recommended. Chloride [Moles/Vol] 107 mmol/L 98-107 [facility] Work Phone: Eosinophils/100 WBC (Bld) 3.6 % 0-5 [facility] Work Phone: Glucose [Mass/Vol] 174 mg/dL 74-106 [facility] Work Phone: Comment on above: Fasting Glucose resu lt greater than or equal to 126 mg/dL suggests DIABETES MELLITUS per A.D.A. criteria. Neutrophils (Bld) [#/Vol] 4.8 10*3/uL 2.0-7.7 [facility] Work Phone: Neutrophils/100 WBC (Bld) 63.3 % 47-70 [facility] Work Phone: Potassium [Moles/Vol] 4.0 mmol/L 3.5-5.1 [facility]: Protein [Mass/Vol] 7.6 g/dL 6.4-8.2 [facility] Work Phone: Sodium [Moles/Vol] 138 mmol/L 136-145 [facility] Work Phone: WBC (Bld) [#/Vol] 7.5 10*3/uL 4.4-11.0 [facility] Work Phone: Blood erythrocytes count (nu mber/volume)on 09-04-2021 RBC (Bld) [#/Vol] 4.26 10*6/uL 4.6-6.2 [facility] Work [facility]: Blood hemoglobin measurement (mass/volume)on 09-04-2021 Hemoglobin (Bld) [Mass/Vol] 11.0 g/dL 13.0-16.5 [facility] Work Phone: Blood lymphocytes/100 leukoc yteson 09-04-2021 Lymphocytes/100 WBC (Bld) 21.2 % 19-41 [facility] Work Phone: Blood monocytes/100 leukocyt eson 09-04-2021 Monocytes/100 WBC (Bld) 10.7 % 0-10 [facility] Work Phone: Blood platelet mean volumeon 09-04-2021 Platelet mean volume (Bld) [Entitic vol] 10.2 fL 6.2-12.0 [facility] Work Phone: Determination of erythrocyte mean corpuscular volume (MCV)on 09-04-2021 MCV (RBC) [Entitic vol] 81.5 fL 80-94 [facility] Work Phone: [phone] Hematocrit Auto (Bld) [Volum e fraction]on 09-04-2021 Hematocrit (Bld) [Volume fraction] 34.7 % 40-54 [facility] Work Phone: [phone] Laboratory - Chemistry and C hemistry - challengeon 09-04-2021 ALP [Catalytic activity/Vol] 92 U/L 45-117 [facility] Work Phone: [phone] ALT [Catalytic activity/Vol] 23 U/L 16-61 [facility] Work Phone: [phone] CO2 [Moles/Vol] 26.0 mmol/L 21.0-32.0 [facility] Work Phone: [phone] Globulin (S) [Mass/Vol] 4.5 g/dL 2.2-4.2 [facility] Work Phone: [phone] Natriuretic peptide B (Bld) [Mass/Vol] 105.8 pg/mL 0-100 [facility] Work Phone: [phone] Urea nitrogen/Creatinine [Mass ratio] 25.2 mg/mg 10-20 [facility] Work Phone: [phone] Laboratory - Hematology and Cell countson 09-04-2021 Erythrocyte distribution width (RBC) [Entitic vol] 46.4 fL 35.1-43.9 [facility] Work Phone: [phone] Erythrocyte distribution width (RBC) [Ratio] 15.7 % 11.6-14.6 [facility] Work Phone: [phone] Immature granulocytes/100 WBC (Bld) 0.700 % 0.0-0.9 [facility] Work Phone: [phone] Comment on above: IG% - Immature Granu locytes (promyelocytes, myelocytes and metamyelocytes) > 1% indicates that a LEFT SHIFT is Present. MCH (RBC) [Entitic mass] 25.8 pg 27.0-32.0 [facility] Work Phone: Nucleated RBC/100 WBC (Bld) [Ratio] 0 % 0-5 [facility] Work Phone: [phone] MCHC Auto (RBC) [Mass/Vol]on 09-04-2021 MCHC (RBC) [Mass/Vol] 31.7 g/dL 32-36 [facility] Work Phone: No Panel Informationon 09-04 Troponin I High Sensitivity 16 pg/mL 3.0-78.0 [facility] Work Phone: Comment on above: Please Note: New Karly t Units and Gender Specific Reference Ranges. For more information see Policy Stat Procedure [place] High Sensitivity Troponin (TNIH) and attachments. Estimated Creatinine Clearance Calc 92.55 ml/min [facility] Work Phone: Estimated GFR (MDRD) Amer 115 mL/min >60 [facility] Work Phone: [phone] Comment on above: GFR Calc Estimated GFR (MDRD) Non-Af Amer 95 mL/min >60 [facility] Work Phone: Comment on above: Non- GFR Calc Platelets bldon 09-04-2021 Platelets (Bld) [#/Vol] 200 10*3/uL 150-450 [facility] Work Phone: [phone] Serum or plasma albumin grazyna urement (mass/volume)on 09-04-2021 Albumin [Mass/Vol] 3.1 g/dL 3.2-5.0 [facility] Work Phone: [phone] Serum or plasma albumin/glob ulin mass ratioon 09-04-2021 Albumin/Globulin [Mass ratio] 0.7 {ratio} 0.9-2.4 [facility] Work Phone: [phone] Serum or plasma calcium grazyna urement (mass/volume)on 09-04-2021 Calcium [Mass/Vol] 8.5 mg/dL 8.5-10.1 [facility] Work Phone: [phone] Serum or plasma creatinine m easurement (mass/volume)on 09-04-2021 Creatinine [Mass/Vol] 0.87 mg/dL 0.70-1.30 [facility] Work Phone: Comment on above: The validity of the calculated GFR & GFRAA in patients over 70 years has not been determined. Clinical correlation is essential. Serum or plasma urea nitroge n measurement (mass/volume)on 09-04-2021 Urea nitrogen [Mass/Vol] 22 mg/dL 7-18 [facility] Work Phone: Thin prep Papanicolaou smear with manual screeningon 09-04-2021 Thin prep Papanicolaou smear with manual screening 18 U/L 15-37 [facility] Work Phone: Thin prep Papanicolaou smear with manual screening 5 5-15 [facility] Work Phone: Absolute lymphocyte counton 07-16-2021 Lymphocytes Auto (Unsp spec) [#/Vol] 1.10 10*3/uL 0.83-4.51 [facility] Work Phone: Basophil percentageon 2021 Basophils/100 WBC (Bld) 0.7 % 0-1 [facility] Work Phone: Chloride [Moles/Vol] 105 mmol/L 98-107 [facility] Work Phone: Eosinophils/100 WBC (Bld) 3.2 % 0-5 [facility] Work Phone: Glucose [Mass/Vol] 283 mg/dL 74-106 [facility] Work Phone: Comment on above: Glucose result great er than or equal to 200 mg/dLsuggests DIABETES MELLITUS per A.D.A. criteria. Neutrophils (Bld) [#/Vol] 6.8 10*3/uL 2.0-7.7 [facility] Work Phone: Neutrophils/100 WBC (Bld) 76.6 % 47-70 [facility] Work Phone: Potassium [Moles/Vol] 3.9 mmol/L 3.5-5.1 [facility] Work Phone: Sodium [Moles/Vol] 138 mmol/L 136-145 [facility] Work Phone: WBC (Bld) [#/Vol] 8.8 10*3/uL 4.4-11.0 [facility] Work Phone: Blood erythrocytes count (nu mber/volume)on 07-16-2021 RBC (Bld) [#/Vol] 4.49 10*6/uL 4.6-6.2 [facility] Work Phone: Blood hemoglobin measurement (mass/volume)on 07-16-2021 Hemoglobin (Bld) [Mass/Vol] 11.8 g/dL 13.0-16.5 [facility] Work Phone: Blood lymphocytes/100 leukoc yteson 07-16-2021 Lymphocytes/100 WBC (Bld) 12.5 % 19-41 [facility] Work Phone: [phone] Blood monocytes/100 leukocyt eson 07-16-2021 Monocytes/100 WBC (Bld) 6.7 % 0-10 [facility] Work Phone: Blood platelet mean volumeon 07-16-2021 Platelet mean volume (Bld) [Entitic vol] 10.2 fL 6.2-12.0 [facility] Work Phone: Determination of erythrocyte mean corpuscular volume (MCV)on 07-16-2021 MCV (RBC) [Entitic vol] 82.9 fL 80-94 [facility] Work Phone: Hematocrit Auto (Bld) [Volum e fraction]on 07-16-2021 Hematocrit (Bld) [Volume fraction] 37.2 % 40-54 [facility] Work Phone: Laboratory - Chemistry and C hemistry - challengeon 07-16-2021 CO2 [Moles/Vol] 24.0 mmol/L 21.0-32.0 [facility] Work Phone: Natriuretic peptide B (Bld) [Mass/Vol] 59.2 pg/mL 0-100 [facility] Work Phone: Urea nitrogen/Creatinine [Mass ratio] 17.5 mg/mg 10-20 [facility] Work Phone: Laboratory - Hematology and Cell countson 07-16-2021 Erythrocyte distribution width (RBC) [Entitic vol] 47.2 fL 35.1-43.9 [facility] Work Phone: [phone] Erythrocyte distribution width (RBC) [Ratio] 15.9 % 11.6-14.6 [facility] Work Phone: [phone] Immature granulocytes/100 WBC (Bld) 0.300 % 0.0-0.9 [facility] Work Phone: [phone] Comment on above: IG% - Immature Granu locytes (promyelocytes, myelocytes and metamyelocytes) > 1% indicates that a LEFT SHIFT is Present. MCH (RBC) [Entitic mass] 26.3 pg 27.0-32.0 [facility] Work Phone: [phone] Nucleated RBC/100 WBC (Bld) [Ratio] 0 % 0-5 [facility] Work Phone: [phone] MCHC Auto (RBC) [Mass/Vol]on 07-16-2021 MCHC (RBC) [Mass/Vol] 31.7 g/dL 32-36 [facility] Work Phone: [phone] Panel Informationon 07-16 Estimated Creatinine Clearance Calc 64.68 ml/min [facility] Work Phone: [phone] Estimated GFR (MDRD) Amer 76 mL/min >60 [facility] Work Phone: [phone] Comment on above: GFR Calc Estimated GFR (MDRD) Non-Af Amer 63 mL/min >60 [facility] Work Phone: [phone] Comment on above: Non- GFR Calc Troponin I High Sensitivity 10 pg/mL 3.0-78.0 [facility] Work Phone: [phone] Comment on above: Please Note: New Karly t Units and Gender Specific Reference Ranges. For more information see Policy Stat Procedure [place] High Sensitivity Troponin (TNIH) and attachments. Platelets bldon 07-16-2021 Platelets (Bld) [#/Vol] 209 10*3/uL 150-450 [facility] Work Phone: Serum or plasma calcium grazyna urement (mass/volume)on 07-16-2021 Calcium [Mass/Vol] 8.7 mg/dL 8.5-10.1 [facility] Work Phone: Serum or plasma creatinine m easurement (mass/volume)on 07-16-2021 Creatinine [Mass/Vol] 1.26 mg/dL 0.70-1.30 [facility] Work Phone: Comment on above: The validity of the calculated GFR & GFRAA in patients over 70 years has not been determined. Clinical correlation is essential. Serum or plasma urea nitroge n measurement (mass/volume)on 07-16-2021 Urea nitrogen [Mass/Vol] 22 mg/dL 7-18 [facility] Work Phone: Thin prep Papanicolaou smear with manual screeningon 07-16-2021 Thin prep Papanicolaou smear with manual screening 9 5-15 [facility] Work Phone: Absolute lymphocyte counton 07-12-2021 Lymphocytes Auto (Unsp spec) [#/Vol] 1.80 10*3/uL 0.83-4.51 [facility] Work Phone: Basophil percentageon 2021 Basophils/100 WBC (Bld) 0.9 % 0-1 [facility] Work Phone: Chloride [Moles/Vol] 103 mmol/L 98-107 [facility] Work Phone: Eosinophils/100 WBC (Bld) 5.6 % 0-5 [facility] Work Phone: Glucose [Mass/Vol] 182 mg/dL 74-106 [facility] Work Phone: Comment on above: Fasting Glucose resu lt greater than or equal to 126 mg/dL suggests DIABETES MELLITUS per A.D.A. criteria. Neutrophils (Bld) [#/Vol] 5.1 10*3/uL 2.0-7.7 [facility] Work Phone: Neutrophils/100 WBC (Bld) 61.8 % 47-70 [facility] Work Phone: Potassium [Moles/Vol] 3.6 mmol/L 3.5-5.1 [facility] Work Phone: Sodium [Moles/Vol] 135 mmol/L 136-145 [facility] Work Phone: WBC (Bld) [#/Vol] 8.2 10*3/uL 4.4-11.0 [facility] Work Phone: Blood erythrocytes count (nu mber/volume)on 07-12-2021 RBC (Bld) [#/Vol] 4.31 10*6/uL 4.6-6.2 [facility] Work Phone: Blood hemoglobin measurement (mass/volume)on 07-12-2021 Hemoglobin (Bld) [Mass/Vol] 11.1 g/dL 13.0-16.5 [facility] Work Phone: [phone] Blood lymphocytes/100 leukoc yteson 07-12-2021 Lymphocytes/100 WBC (Bld) 22.0 % 19-41 [facility] Work Phone: [phone] Blood monocytes/100 leukocyt eson 07-12-2021 Monocytes/100 WBC (Bld) 9.3 % 0-10 [facility] Work Phone: Blood platelet mean volumeon 07-12-2021 Platelet mean volume (Bld) [Entitic vol] 10.2 fL 6.2-12.0 [facility] Work Phone: Determination of erythrocyte mean corpuscular volume (MCV)on 07-12-2021 MCV (RBC) [Entitic vol] 80.5 fL 80-94 [facility] Work Phone: Hematocrit Auto (Bld) [Volum e fraction]on 07-12-2021 Hematocrit (Bld) [Volume fraction] 34.7 % 40-54 [facility] Work Phone: Laboratory - Chemistry and C hemistry - challengeon 07-12-2021 CO2 [Moles/Vol] 24.0 mmol/L 21.0-32.0 [facility] Work Phone: [phone] Natriuretic peptide B (Bld) [Mass/Vol] 93.4 pg/mL 0-100 [facility] Work Phone: [phone] Urea nitrogen/Creatinine [Mass ratio] 22.0 mg/mg 10-20 [facility] Work Phone: [phone] Laboratory - Hematology and Cell countson 07-12-2021 Erythrocyte distribution width (RBC) [Entitic vol] 45.5 fL 35.1-43.9 [facility] Work Phone: [phone] Erythrocyte distribution width (RBC) [Ratio] 15.9 % 11.6-14.6 [facility] Work Phone: [phone] Immature granulocytes/100 WBC (Bld) 0.400 % 0.0-0.9 [facility] Work Phone: [phone] Comment on above: IG% - Immature Granu locytes (promyelocytes, myelocytes and metamyelocytes) > 1% indicates that a LEFT SHIFT is Present. MCH (RBC) [Entitic mass] 25.8 pg 27.0-32.0 [facility] Work Phone: [phone] Nucleated RBC/100 WBC (Bld) [Ratio] 0 % 0-5 [facility] Work Phone: [phone] MCHC Auto (RBC) [Mass/Vol]on 07-12-2021 MCHC (RBC) [Mass/Vol] 32.0 g/dL 32-36 [facility] Work Phone: [phone] Panel Informationon 07-12 Estimated GFR (MDRD) Amer 99 mL/min >60 [facility] Work Phone: [phone] Comment on above: GFR Calc Estimated GFR (MDRD) Non-Af Amer 82 mL/min >60 [facility] Work Phone: [phone] Comment on above: Non- GFR Calc Thyroid Stimulating Hormone (TSH) 1.06 uIU/mL 0.358-3.74 [facility] Work Phone: [phone] Platelets bldon 07-12-2021 Platelets (Bld) [#/Vol] 223 10*3/uL 150-450 [facility] Work Phone: Serum or plasma calcium grazyna urement (mass/volume)on 07-12-2021 Calcium [Mass/Vol] 8.6 mg/dL 8.5-10.1 [facility] Work Phone: Serum or plasma creatinine m easurement (mass/volume)on 07-12-2021 Creatinine [Mass/Vol] 1.00 mg/dL 0.70-1.30 [facility] Work Phone: Comment on above: The validity of the calculated GFR & GFRAA in patients over 70 years has not been determined. Clinical correlation is essential. Serum or plasma urea nitroge n measurement (mass/volume)on 07-12-2021 Urea nitrogen [Mass/Vol] 22 mg/dL 7-18 [facility] Work Phone: Thin prep Papanicolaou smear with manual screeningon 07-12-2021 Thin prep Papanicolaou smear with manual screening 8 5-15 [facility] Work Phone: Laboratory - Hematology and Cell countson 06-29-2021 HbA1c (Bld) [Mass fraction] 8.9 % [facility] Work Phone: Absolute lymphocyte counton 06-19-2021 Lymphocytes Auto (Unsp spec) [#/Vol] 1.28 10*3/uL 0.83-4.51 [facility] Work Phone: Basophil percentageon 2021 Lactate [Moles/Vol] 2.1 mmol/L 0.4-2.0 [facility] Work Phone: Comment on above: Critical Result(s) C alled at: 14:08:57 06/19/2021 by: Danae Zaldivar to Marlen. Results read back by same. Basophil percentage 0 SEEN /hpf 0-5 [facility] Work Phone: Basophils/100 WBC (Bld) 0.5 % 0-1 [facility] Work Phone: Chloride [Moles/Vol] 104 mmol/L 98-107 [facility] Work Phone: Eosinophils/100 WBC (Bld) 2.6 % 0-5 [facility] Work Phone: Glucose [Mass/Vol] 191 mg/dL 74-106 [facility] Work Phone: Comment on above: Fasting Glucose resu lt greater than or equal to 126 mg/dL suggests DIABETES MELLITUS per A.D.A. criteria. Neutrophils (Bld) [#/Vol] 5.1 10*3/uL 2.0-7.7 [facility] Work Phone: Neutrophils/100 WBC (Bld) 69.5 % 47-70 [facility] Work Phone: Potassium [Moles/Vol] 3.9 mmol/L 3.5-5.1 [facility] Work Phone: Sodium [Moles/Vol] 137 mmol/L 136-145 [facility] Work Phone: WBC (Bld) [#/Vol] 7.4 10*3/uL 4.4-11.0 [facility] Work Phone: Bilirubin Test strip Ql (U)o n 06-19-2021 Bilirubin Ql (U) Negative Negative [facility] Work Phone: Blood erythrocytes count (nu mber/volume)on 06-19-2021 RBC (Bld) [#/Vol] 4.54 10*6/uL 4.6-6.2 [facility] Work Phone: Blood hemoglobin measurement (mass/volume)on 06-19-2021 Hemoglobin (Bld) [Mass/Vol] 12.0 g/dL 13.0-16.5 [facility] Work Phone: Blood lymphocytes/100 leukoc yteson 06-19-2021 Lymphocytes/100 WBC (Bld) 17.3 % 19-41 [facility] Work Phone: Blood monocytes/100 leukocyt eson 06-19-2021 Monocytes/100 WBC (Bld) 9.6 % 0-10 [facility] Work Phone: [phone] Blood platelet mean volumeon 06-19-2021 Platelet mean volume (Bld) [Entitic vol] 9.7 fL 6.2-12.0 [facility] Work Phone: [phone] Determination of erythrocyte mean corpuscular volume (MCV)on 06-19-2021 MCV (RBC) [Entitic vol] 79.7 fL 80-94 [facility] Work Phone: [phone] Hematocrit Auto (Bld) [Volum e fraction]on 06-19-2021 Hematocrit (Bld) [Volume fraction] 36.2 % 40-54 [facility] Work Phone: [phone] Ketones Test strip Ql (U)on 06-19-2021 Ketones Ql (U) Negative Negative [facility] Work Phone: [phone] Laboratory - Chemistry and C hemistry - challengeon 06-19-2021 CO2 [Moles/Vol] 26.0 mmol/L 21.0-32.0 [facility] Work Phone: [phone] Natriuretic peptide B (Bld) [Mass/Vol] 155.0 pg/mL 0-100 [facility] Work Phone: [phone] Urea nitrogen/Creatinine [Mass ratio] 14.6 mg/mg 10-20 [facility] Work Phone: [phone] Laboratory - Hematology and Cell countson 06-19-2021 Erythrocyte distribution width (RBC) [Entitic vol] 43.1 fL 35.1-43.9 [facility] Work Phone: [phone] Erythrocyte distribution width (RBC) [Ratio] 15.0 % 11.6-14.6 [facility] Work Phone: [phone] Immature granulocytes/100 WBC (Bld) 0.500 % 0.0-0.9 [facility] Work Phone: [phone] Comment on above: IG% - Immature Granu locytes (promyelocytes, myelocytes and metamyelocytes) > 1% indicates that a LEFT SHIFT is Present. MCH (RBC) [Entitic mass] 26.4 pg 27.0-32.0 [facility] Work Phone: Nucleated RBC/100 WBC (Bld) [Ratio] 0 % 0-5 [facility] Work Phone: MCHC Auto (RBC) [Mass/Vol]on 06-19-2021 MCHC (RBC) [Mass/Vol] 33.1 g/dL 32-36 [facility] Work Phone: [phone] Mucus LM Ql (Urine sed)on Mucus Ql (Urine sed) 0 SEEN /hpf [facility] Work Phone: [phone] Nitrite Test strip Ql (U)on 06-19-2021 Nitrite Ql (U) Negative Negative [facility] Work Phone: [phone] Panel Informationon 06-19 Troponin I High Sensitivity 31 pg/mL 3.0-78.0 [facility] Work Phone: [phone] Comment on above: Please Note: New Karly t Units and Gender Specific Reference Ranges. For more information see Policy Stat Procedure [place] High Sensitivity Troponin (TNIH) and attachments. Estimated Creatinine Clearance Calc 84.90 ml/min [facility] Work Phone: [phone] Estimated GFR (MDRD) Amer 104 mL/min >60 [facility] Work Phone: [phone] Comment on above: GFR Calc Estimated GFR (MDRD) Non-Af Amer 86 mL/min >60 [facility] Work Phone: [phone] Comment on above: Non- GFR Calc Platelets bldon 06-19-2021 Platelets (Bld) [#/Vol] 216 10*3/uL 150-450 [facility] Work Phone: [phone] Protein Test strip Ql (U)on 06-19-2021 Protein Ql (U) 30 mg/dl Negative [facility] Work Phone: [phone] Serum or plasma calcium grazyna urement (mass/volume)on 06-19-2021 Calcium [Mass/Vol] 8.8 mg/dL 8.5-10.1 [facility] Work Phone: Serum or plasma creatinine m easurement (mass/volume)on 06-19-2021 Creatinine [Mass/Vol] 0.96 mg/dL 0.70-1.30 [facility] Work Phone: Comment on above: The validity of the calculated GFR & GFRAA in patients over 70 years has not been determined. Clinical correlation is essential. Serum or plasma urea nitroge n measurement (mass/volume)on 06-19-2021 Urea nitrogen [Mass/Vol] 14 mg/dL 7-18 [facility] Work Phone: Squamous epithelial cells de tection in urine sediment by light microscopyon 06-19-2021 Epithelial cells.squamous LM Ql (Urine sed) 0 SEEN /hpf 0-5 [facility] Work Phone: Thin prep Papanicolaou smear with manual screeningon 06-19-2021 Thin prep Papanicolaou smear with manual screening 7 5-15 [facility] Work Phone: Urine blood detectionon 05-31 RBC Ql (U) Negative Negative [facility] Work Phone: RBC Ql (U) 0 SEEN /hpf 0-5 [facility] Work Phone: Urine clarityon 06-19-2021 Clarity (U) Clear Clear [facility] Work Phone: Urine color determinationon 06-19-2021 Color (U) Yellow Yellow [facility] Work Phone: Urine glucose detectionon Glucose Ql (U) Normal mg/dl Normal [facility] Work Phone: Urine leukocyte esterase det ection by dipstickon 06-19-2021 Leukocyte esterase Test strip Ql (U) Negative Negative [facility] Work Phone: Urine pHon 06-19-2021 pH (U) 6.0 [pH] 5.0 - 8.0 [facility] Work Phone: [phone] Urine sediment bacteria coun t by microscopy (number/high power field)on 06-19-2021 Bacteria LM.HPF (Urine sed) [#/Area] 0 /[HPF] None Seen [facility] Work Phone: Urine specific gravity measu rementon 06-19-2021 Specific gravity (U) [Rel density] 1.015 1.002-1.030 [facility] Work Phone: Urobilinogen Auto test strip Ql (U)on 06-19-2021 Urobilinogen Ql (U) Normal mg/dl Normal [facility] Work Phone: No Panel Informationon 06-02 Urine Microalbumin/Creatinine Ratio 40.2 mg/g CRE <30 [facility] Work Phone: Thin prep Papanicolaou smear with manual screeningon 06-02-2021 Thin prep Papanicolaou smear with manual screening 22.8 mg/L NO RANGE EST. [facility] Work Phone: Urine creatinine measurement (mass/volume)on 06-02-2021 Creatinine (U) [Mass/Vol] 56.70 mg/dL NO RANGE EST. [facility] Work Phone: Basophil percentageon 2021 Bilirubin [Mass/Vol] 0.40 mg/dL 0.20-1.00 [facility] Work Phone: Comment on above: For patients on eltr ombopag therapy, use of Dimension [place] TBIL is not recommended. Chloride [Moles/Vol] 102 mmol/L 98-107 [facility] Work Phone: Cholesterol [Mass/Vol] 189 mg/dL <200 [facility] Work Phone: Comment on above: <200 mg/dL Desirable 200-240 mg/dL Borderline >240 mg/dL High Risk Glucose [Mass/Vol] 285 mg/dL 74-106 [facility] Work Phone: Comment on above: Glucose result great er than or equal to 200 mg/dLsuggests DIABETES MELLITUS per A.D.A. criteria. Potassium [Moles/Vol] 4.1 mmol/L 3.5-5.1 [facility] Work Phone: [phone] Protein [Mass/Vol] 8.1 g/dL 6.4-8.2 [facility] Work Phone: [phone] Sodium [Moles/Vol] 133 mmol/L 136-145 [facility] Work Phone: [phone] Triglyceride [Mass/Vol] 526 mg/dL <199 [facility] Work Phone: [phone] Comment on above: The drugs N-Acetylcy steine [...] 06-01-2021 ALP [Catalytic activity/Vol] 96 U/L 45-117 [facility] Work Phone: ALT [Catalytic activity/Vol] 31 U/L 16-61 [facility] Work Phone: [phone] CO2 [Moles/Vol] 24.0 mmol/L 21.0-32.0 [facility] Work Phone: [phone] Globulin (S) [Mass/Vol] 4.6 g/dL 2.2-4.2 [facility] Work Phone: [phone] Urea nitrogen/Creatinine [Mass ratio] 22.3 mg/mg 10-20 [facility] Work Phone: [phone] Laboratory - Hematology and Cell countson 06-01-2021 HbA1c (Bld) [Mass fraction] 9.3 % [facility] Work Phone: [phone] Panel Informationon 06-01 Estimated GFR (MDRD) Amer 73 mL/min >60 [facility] Work Phone: [phone] Comment on above: GFR Calc Estimated GFR (MDRD) Non-Af Amer 60 mL/min >60 [facility] Work Phone: [phone] Comment on above: Non- GFR Calc Serum or plasma albumin grazyna urement (mass/volume)on 06-01-2021 Albumin [Mass/Vol] 3.5 g/dL 3.2-5.0 [facility] Work Phone: Serum or plasma albumin/glob ulin mass ratioon 06-01-2021 Albumin/Globulin [Mass ratio] 0.8 {ratio} 0.9-2.4 [facility] Work Phone: Serum or plasma calcium grazyna urement (mass/volume)on 06-01-2021 Calcium [Mass/Vol] 9.1 mg/dL 8.5-10.1 [facility] Work Phone: Serum or plasma cholesterol in HDL measurement (mass/volume)on 06-01-2021 Cholesterol in HDL [Mass/Vol] 33 mg/dL >40 [facility] Work Phone: Comment on above: The drugs N-Acetylcy steine and Metamizole may falsely depress this assay. Reference Range HDL <40 mg/dL Low HDL Cholesterol HDL >or= 60 mg/dL High HDL Cholesterol Serum or plasma cholesterol in VLDL measurement (mass/volume)on 06-01-2021 Cholesterol in VLDL [Mass/Vol] TNP [facility] Work Phone: Comment on above: Test not performed Serum or plasma creatinine m easurement (mass/volume)on 06-01-2021 Creatinine [Mass/Vol] 1.30 mg/dL 0.70-1.30 [facility] Work Phone: Comment on above: The validity of the calculated GFR & GFRAA in patients over 70 years has not been determined. Clinical correlation is essential. Serum or plasma low density lipoprotein (LDL) cholesterol measurement (mass/volume)on 06-01-2021 Cholesterol in LDL [Mass/Vol] TNP [facility] Work Phone: Comment on above: Test not performed Serum or plasma urea nitroge n measurement (mass/volume)on 06-01-2021 Urea nitrogen [Mass/Vol] 29 mg/dL 7-18 [facility] Work Phone: Thin prep Papanicolaou smear with manual screeningon 06-01-2021 Thin prep Papanicolaou smear with manual screening 24 U/L 15-37 [facility] Work Phone: Thin prep Papanicolaou smear with manual screening 7 5-15 [facility] Work Phone: Absolute lymphocyte counton 05-30-2021 Lymphocytes Auto (Unsp spec) [#/Vol] 1.58 10*3/uL 0.83-4.51 [facility] Work Phone: Basophil percentageon 2021 Basophils/100 WBC (Bld) 0.7 % 0-1 [facility] Work Phone: Eosinophils/100 WBC (Bld) 2.4 % 0-5 [facility] Work Phone: Neutrophils (Bld) [#/Vol] 4.4 10*3/uL 2.0-7.7 [facility] Work Phone: Neutrophils/100 WBC (Bld) 64.8 % 47-70 [facility] Work Phone: WBC (Bld) [#/Vol] 6.7 10*3/uL 4.4-11.0 [facility] Work Phone: Blood erythrocytes count (nu mber/volume)on 05-30-2021 RBC (Bld) [#/Vol] 4.54 10*6/uL 4.6-6.2 [facility] Work Phone: Blood hemoglobin measurement (mass/volume)on 05-30-2021 Hemoglobin (Bld) [Mass/Vol] 11.9 g/dL 13.0-16.5 [facility] Work Phone: Blood lymphocytes/100 leukoc yteson 05-30-2021 Lymphocytes/100 WBC (Bld) 23.4 % 19-41 [facility] Work Phone: Blood monocytes/100 leukocyt eson 05-30-2021 Monocytes/100 WBC (Bld) 8.6 % 0-10 [facility] Work Phone: Blood platelet mean volumeon 05-30-2021 Platelet mean volume (Bld) [Entitic vol] 10.7 fL 6.2-12.0 [facility] Work Phone: [phone] Determination of erythrocyte mean corpuscular volume (MCV)on 05-30-2021 MCV (RBC) [Entitic vol] 81.3 fL 80-94 [facility] Work Phone: [phone] Hematocrit Auto (Bld) [Volum e fraction]on 05-30-2021 Hematocrit (Bld) [Volume fraction] 36.9 % 40-54 [facility] Work Phone: [phone] Laboratory - Hematology and Cell countson 05-30-2021 Erythrocyte distribution width (RBC) [Entitic vol] 46.5 fL 35.1-43.9 [facility] Work Phone: [phone] Erythrocyte distribution width (RBC) [Ratio] 15.6 % 11.6-14.6 [facility] Work Phone: [phone] Immature granulocytes/100 WBC (Bld) 0.100 % 0.0-0.9 [facility] Work Phone: [phone] Comment on above: IG% - Immature Granu locytes (promyelocytes, myelocytes and metamyelocytes) > 1% indicates that a LEFT SHIFT is Present. MCH (RBC) [Entitic mass] 26.2 pg 27.0-32.0 [facility] Work Phone: [phone] Nucleated RBC/100 WBC (Bld) [Ratio] 0 % 0-5 [facility] Work Phone: [phone] MCHC Auto (RBC) [Mass/Vol]on 05-30-2021 MCHC (RBC) [Mass/Vol] 32.2 g/dL 32-36 [facility] Work Phone: [phone] Panel Informationon 05-30 Thyroid Stimulating Hormone (TSH) 1.24 uIU/mL 0.358-3.74 [facility] Work Phone: Platelets bldon 05-30-2021 Platelets (Bld) [#/Vol] 201 10*3/uL 150-450 [facility] Work Phone: Final Surgical Pathology Rep shruthi 08-11-2018 Final Surgical Pathology Report . Pathology Reports Accession: Collected Date/Time: Received Date/Time: Pathologist: [id number] 08/07/2018 14:48 EDT 08/08/2018 14:48 EDT URBAN [...] to 0.4 cm. TS -1 Dictated by Taltia GRIFFITHS ([facility]) MICROSCOPIC DESCRIPTION: A-B Slides reviewed. Electronically Signed by Pathology Report verified by [facility] Electronically signed by URBAN BILLINGS Sign out Date: 08/11/2018 15:23 Performing Lab: [facility], [address] [place] [address] ([place]) Comment on above: Performed By: #### S PFR #### [place] [address] Otheron 12-28-2010 CONVERTED CLINICAL HISTORY OPERATIVE PROCEDURE: V arthroscopy, partial medial meniscectomy rt knee CLINICAL INFORMATION: Partial medial meniscal tear rt knee [facility] CONVERTED ELECTRONIC SIGNATURE OCHOA SPENCER M.D., PATHOLOGIST (Electronic signature on file) Final Signed Out: 12/28/2010 13:12 [facility] CONVERTED FINAL DIAGNOSIS FINAL DIAGNOSIS: RIGHT KNEE, INTRAARTICULAR SHAVINGS - FIBROCARTILAGE WITH DEGENERATIVE CHANGES. SPECIMEN: SHAVINGS, KNEE [facility] CONVERTED GROSS DESCRIPTION GROSS DESCRIPTION: Intra-articular shavings rt knee Container labeled shavings right knee. Received in a cloth sock are portions of yellow-white fibrocartilaginous tissue measuring 2 x 2 x 1 cm in aggregate. A assistance representative sample is submitted in a single cassette. SMS/lrs MICROSCOPIC DESCRIPTION: Slides reviewed. EDS/gpl [facility] CONVERTED ORDERING PROVIDER Ordering Provider: KARLSO AQUINO [facility] Vital Signs Date Time Vital Sign Value Performing Clinician Facility 01-18-2025 09:54-0400 Body mass index (BMI) [Ratio] 45.78 kg/m2 Oziel Culp MD Work Phone: [facility] 01-18-2025 09:54-0400 Body temperature 97.7 [degF] Oziel Culp MD Work Phone: [facility] 01-18-2025 09:54-0400 Body weight 140.62 kg Oziel Culp MD Work Phone: [facility] 01-18-2025 09:54-0400 Diastolic blood pressure 65 mm[Hg] Oziel Culp MD Work Phone: [facility] 01-18-2025 09:54-0400 Heart rate 70 /min Oziel Culp MD Work Phone: [facility] 01-18-2025 09:54-0400 Systolic blood pressure 114 mm[Hg] Oziel Culp MD Work Phone: [facility] 01-15-2025 13:55-0400 Body temperature 97.59 [degF] Rosalino Padron MD Work Phone: [facility] 12-24-2024 00:02-0400 Body temperature 98 [degF] Dr. Toni Vann MD Work Phone: [facility] 12-24-2024 00:02-0400 Diastolic blood pressure 59 mm[Hg] Dr. Toni Vann MD Work Phone: [facility] 12-24-2024 00:02-0400 Heart rate 86 /min Dr. Toni Vann MD Work Phone: [facility] 12-24-2024 00:02-0400 Respiratory rate 15 /min Dr. Toni Vann MD Work Phone: [facility] 12-24-2024 00:02-0400 SaO2% (BldA) [Mass fraction] 99 % Dr. Toni Vann MD Work Phone: [phone] [place] [address] 12-24-2024 00:02-0400 Systolic blood pressure 105 mm[Hg] Dr. Toni Vann MD Work Phone: [phone] [place] [address] 12-23-2024 22:00-0400 Inhaled oxygen flow rate 4 L/min Dr. Toni Vann MD Work Phone: [phone] [place] [address] 12-23-2024 20:30-0400 Body height 175.[address] Toni Vann MD Work Phone: [phone] [place] [address] 12-23-2024 20:30-0400 Body mass index (BMI) [Ratio] 46.8 kg/m2 Dr. Toni Vann MD Work Phone: [phone] [place] [address] 12-23-2024 20:30-0400 Body weight [address] Toni Vann MD Work Phone: [phone] [place] [address] 12-17-2024 15:39-0400 Body temperature 97.5 [degF] Dr. Toni Vann MD Work Phone: [phone] [place] [address] 12-17-2024 15:39-0400 Diastolic blood pressure 51 mm[Hg] Dr. Toni Vann MD Work Phone: [phone] [place] [address] 12-17-2024 15:39-0400 Heart rate 73 /min Dr. Toni Vann MD Work Phone: [phone] [place] [address] 12-17-2024 15:39-0400 Respiratory rate 18 /min Dr. Toni Vann MD Work Phone: [phone] [place] [address] 12-17-2024 15:39-0400 SaO2% (BldA) [Mass fraction] 100 % Dr. Toni Vann MD Work Phone: [phone] [place] [address] 12-17-2024 15:39-0400 Systolic blood pressure 90 mm[Hg] Dr. Toni Vann MD Work Phone: [phone] [place] [address] 12-17-2024 13:59-0400 Inhaled oxygen flow rate 5 L/min Dr. Toni Vann MD Work Phone: [facility] 12-17-2024 10:33-0400 Body temperature 96.7 [degF] Dr. Toni Vann MD Work Phone: [facility] 12-17-2024 10:33-0400 Diastolic blood pressure 64 mm[Hg] Dr. Toni Vann MD Work Phone: [facility] 12-17-2024 10:33-0400 Heart rate 101 /min Dr. Toni Vann MD Work Phone: [facility] 12-17-2024 10:33-0400 Respiratory rate 18 /min Dr. Toni Vann MD Work Phone: [facility] 12-17-2024 10:33-0400 Systolic blood pressure 103 mm[Hg] Dr. Toni Vann MD Work Phone: [facility] 12-10-2024 14:53-0400 Diastolic blood pressure 53 mm[Hg] Dr. Radha Khan MD Work Phone: [facility] 12-10-2024 14:53-0400 Heart rate 77 /min Dr. Radha Khan MD Work Phone: [facility] 12-10-2024 14:53-0400 Respiratory rate 16 /min Dr. Radha Khan MD Work Phone: [facility] 12-10-2024 14:53-0400 SaO2% (BldA) [Mass fraction] 99 % Dr. Radha Khan MD Work Phone: [facility] 12-10-2024 14:53-0400 Systolic blood pressure 113 mm[Hg] Dr. Radha Khan MD Work Phone: [facility] 12-10-2024 13:27-0400 Body height 175.[address] Radha Khan MD Work Phone: [facility] 12-10-2024 13:27-0400 Body mass index (BMI) [Ratio] 45.4 kg/m2 Dr. Radha Khan MD Work Phone: [phone] [place] [address] 12-10-2024 13:27-0400 Body temperature 96 [degF] Dr. Radha Khan MD Work Phone: [phone] [place] [address] 12-10-2024 13:27-0400 Body weight 139.[address] Radha Khan MD Work Phone: 0(120)416-483826 [place] [address] 12-10-2024 13:27-0400 Inhaled oxygen flow rate 4 L/min Dr. Radha Khan MD Work Phone: 6(064)697-105526 [place] [address] 11-28-2024 13:55-0400 Inhaled oxygen flow rate 8 L/min Dr. Radha Khan MD Work Phone: 7(828)363-957126 [place] [address] 11-28-2024 13:55-0400 SaO2% (BldA) [Mass fraction] 93 % Dr. Radha Khan MD Work Phone: 4(500)442-316785 [place] [address] 11-28-2024 13:19-0400 Body temperature 97.6 [degF] Dr. Radha Khan MD Work Phone: 2(770)311-642951 [address] 11-28-2024 13:19-0400 Diastolic blood pressure 76 mm[Hg] Dr. Radha Khan MD Work Phone: 2(656)919-547851 [address] 11-28-2024 13:19-0400 Heart rate 97 /min Dr. Radha Khan MD Work Phone: 5(239)777-569285 [place] [address] 11-28-2024 13:19-0400 Respiratory rate 18 /min Dr. Radha Khan MD Work Phone: 9(395)949-851651 [address] 11-28-2024 13:19-0400 Systolic blood pressure 162 mm[Hg] Dr. Radha Khan MD Work Phone: 5(100)846-154951 [address] 11-26-2024 14:09-0400 Body height 175.[address] Radha Khan MD Work Phone: 9(048)046-592551 [address] 11-26-2024 14:09-0400 Body weight 147.[address] Radha Khan MD Work Phone: [facility] 11-26-2024 13:21-0400 Body mass index (BMI) [Ratio] 48.1 kg/m2 Dr. Radha Khan MD Work Phone: [facility] 11-26-2024 12:39-0400 Body temperature 99.4 [degF] Dr. Radha Khan MD Work Phone: [facility] 11-26-2024 12:39-0400 Diastolic blood pressure 60 mm[Hg] Dr. Radha Khan MD Work Phone: [facility] 11-26-2024 12:39-0400 Heart rate 85 /min Dr. Radha Khan MD Work Phone: [facility] 11-26-2024 12:39-0400 Respiratory rate 22 /min Dr. Radha Khan MD Work Phone: [facility] 11-26-2024 12:39-0400 SaO2% (BldA) [Mass fraction] 100 % Dr. Radha Khan MD Work Phone: [facility] 11-26-2024 12:39-0400 Systolic blood pressure 119 mm[Hg] Dr. Radha Khan MD Work Phone: [facility] 11-26-2024 11:54-0400 Inhaled oxygen flow rate 4 L/min Dr. Radha Khan MD Work Phone: [facility] 11-26-2024 09:16-0400 Body height 175.[address] Radha Khan MD Work Phone: [facility] 11-26-2024 09:16-0400 Body mass index (BMI) [Ratio] 47.2 kg/m2 Dr. Radha Khan MD Work Phone: [facility] 11-26-2024 09:16-0400 Body weight 145.[address] Radha Khan MD Work Phone: [facility] 11-25-2024 08:20-0400 Body mass index (BMI) [Ratio] 48.2 kg/m2 Dr. Radha Khan MD Work Phone: [facility] 11-25-2024 08:20-0400 Body temperature 97.4 [degF] Dr. Radha Khan MD Work Phone: [facility] 11-25-2024 08:20-0400 Body weight 148.[address] Radha Khan MD Work Phone: [facility] 11-25-2024 08:20-0400 Diastolic blood pressure 74 mm[Hg] Dr. Radha Khan MD Work Phone: 4(057)035-437651 [address] 11-25-2024 08:20-0400 Heart rate 76 /min Dr. Radha Khan MD Work Phone: 2(761)322-452185 [place] [address] 11-25-2024 08:20-0400 Inhaled oxygen flow rate 4 L/min Dr. Radha Khan MD Work Phone: [facility] 11-25-2024 08:20-0400 Respiratory rate 20 /min Dr. Radha Khan MD Work Phone: [facility] 11-25-2024 08:20-0400 SaO2% (BldA) [Mass fraction] 99 % Dr. Radha Khan MD Work Phone: [facility] 11-25-2024 08:20-0400 Systolic blood pressure 112 mm[Hg] Dr. Radha Khan MD Work Phone: [facility] 11-13-2024 13:01-0400 Body mass index (BMI) [Ratio] 50.06 kg/m2 Rosalino Padron MD Work Phone: [facility] 11-13-2024 13:01-0400 Body temperature 97 [degF] Rosalino Padron MD Work Phone: [facility] 11-13-2024 13:01-0400 Body weight 153.77 kg Rosalino Padron MD Work Phone: [facility] 11-13-2024 13:01-0400 Diastolic blood pressure 69 mm[Hg] Rosalino Padron MD Work Phone: [facility] 11-13-2024 13:01-0400 Heart rate 74 /min Rosalino Padron MD Work Phone: [facility] 11-13-2024 13:01-0400 SaO2% (BldA) [Mass fraction] 98 % Rosalino Padron MD Work Phone: [facility] Comment on above: pt on 4L O2 11-13-2024 13:01-0400 Systolic blood pressure 114 mm[Hg] Rosalino Padron MD Work Phone: [facility] 11-12-2024 10:51-0400 Body height 175.[address] Radha Khan MD Work Phone: [facility] 11-12-2024 10:51-0400 Body mass index (BMI) [Ratio] 49.8 kg/m2 Dr. Radha Khan MD Work Phone: [facility] 11-12-2024 10:51-0400 Body weight 153.[address] Radha Khan MD Work Phone: [facility] 11-12-2024 10:51-0400 Diastolic blood pressure 70 mm[Hg] Dr. Radha Khan MD Work Phone: [facility] 11-12-2024 10:51-0400 Heart rate 84 /min Dr. Rahda Khan MD Work Phone: [facility] 11-12-2024 10:51-0400 Inhaled oxygen flow rate 4 L/min Dr. Radha Khan MD Work Phone: [facility] 11-12-2024 10:51-0400 Respiratory rate 15 /min Dr. Radha Khan MD Work Phone: [facility] 11-12-2024 10:51-0400 SaO2% (BldA) [Mass fraction] 93 % Dr. Radha Khan MD Work Phone: [facility] 11-12-2024 10:51-0400 Systolic blood pressure 116 mm[Hg] Dr. Radha Khan MD Work Phone: 4(134)834-947685 [place] [address] 11-03-2024 13:42-0400 Body height 175.[address] Radha Khan MD Work Phone: 9(851)685-038751 [address] 11-03-2024 13:42-0400 Body mass index (BMI) [Ratio] 49.9 kg/m2 Dr. Radha Khan MD Work Phone: 3(881)200-367126 [place] [address] 11-03-2024 13:42-0400 Body temperature 97.9 [degF] Dr. Radha Khan MD Work Phone: 5(648)978-398626 [place] [address] 11-03-2024 13:42-0400 Body weight 153.[address] Radha Khan MD Work Phone: 8(739)280-301785 [place] [address] 11-03-2024 13:42-0400 Diastolic blood pressure 60 mm[Hg] Dr. Radha Khan MD Work Phone: 3(860)098-319685 [place] [address] 11-03-2024 13:42-0400 Heart rate 85 /min Dr. Radha Khan MD Work Phone: 2(487)048-432185 [place] [address] 11-03-2024 13:42-0400 Inhaled oxygen flow rate 4 L/min Dr. Radha Khan MD Work Phone: 2(813)360-902885 [place] [address] 11-03-2024 13:42-0400 Respiratory rate 18 /min Dr. Radha Khan MD Work Phone: 9(095)502-158285 [place] [address] 11-03-2024 13:42-0400 SaO2% (BldA) [Mass fraction] 98 % Dr. Radha Khan MD Work Phone: 5(018)836-379485 [place] [address] 11-03-2024 13:42-0400 Systolic blood pressure 86 mm[Hg] Dr. Radha Khan MD Work Phone: [facility] 10-27-2024 10:19-0400 Body height 175.[address] Radha Khan MD Work Phone: [facility] 10-27-2024 10:19-0400 Body mass index (BMI) [Ratio] 48.9 kg/m2 Dr. Radha Khan MD Work Phone: [facility] 10-27-2024 10:19-0400 Body weight 150.[address] Radha Khan MD Work Phone: [facility] 10-27-2024 10:19-0400 Diastolic blood pressure 79 mm[Hg] Dr. Radha Khan MD Work Phone: [facility] 10-27-2024 10:19-0400 Heart rate 65 /min Dr. Radha Khan MD Work Phone: 1(233)802-836685 [place] [address] 10-27-2024 10:19-0400 Respiratory rate 20 /min Dr. Radha Khan MD Work Phone: [facility] 10-27-2024 10:19-0400 Systolic blood pressure 136 mm[Hg] Dr. Radha Khan MD Work Phone: [facility] 10-12-2024 10:52-0400 Body height 175.[address] Radha Khan MD Work Phone: [facility] 10-12-2024 10:52-0400 Body mass index (BMI) [Ratio] 47.4 kg/m2 Dr. Radha Khan MD Work Phone: [facility] 10-12-2024 10:52-0400 Body temperature 98.2 [degF] Dr. Radha Khan MD Work Phone: [facility] 10-12-2024 10:52-0400 Body weight 145.[address] Radha Khan MD Work Phone: [facility] 10-12-2024 10:52-0400 Diastolic blood pressure 81 mm[Hg] Dr. Radha Khan MD Work Phone: [facility] 10-12-2024 10:52-0400 Heart rate 81 /min Dr. Radha Khan MD Work Phone: [facility] 10-12-2024 10:52-0400 Inhaled oxygen flow rate 4 L/min Dr. Radha Khan MD Work Phone: 5(668)844-753626 [place] [address] 10-12-2024 10:52-0400 Respiratory rate 17 /min Dr. Radha Khan MD Work Phone: 6(643)858-832051 [address] 10-12-2024 10:52-0400 SaO2% (BldA) [Mass fraction] 96 % Dr. Radha Khan MD Work Phone: 8(171)273-013551 [address] 10-12-2024 10:52-0400 Systolic blood pressure 150 mm[Hg] Dr. Radha Khan MD Work Phone: 4(884)505-968426 [place] [address] 09-28-2024 15:00-0400 Body mass index (BMI) [Ratio] 47.7 kg/m2 Dr. Radha Khan MD Work Phone: 4(723)766-400526 [place] [address] 09-28-2024 14:46-0400 Body temperature 97.5 [degF] Dr. Radha Khan MD Work Phone: 5(076)645-809826 [place] [address] 09-28-2024 14:46-0400 Diastolic blood pressure 76 mm[Hg] Dr. Radha Khan MD Work Phone: 3(794)758-969826 [place] [address] 09-28-2024 14:46-0400 Heart rate 77 /min Dr. Radha Khan MD Work Phone: 0(534)574-166851 [address] 09-28-2024 14:46-0400 Inhaled oxygen flow rate 4 L/min Dr. Radha Khan MD Work Phone: 3(489)106-642126 [place] [address] 09-28-2024 14:46-0400 Respiratory rate 18 /min Dr. Radha Khan MD Work Phone: 5(663)026-030451 [address] 09-28-2024 14:46-0400 SaO2% (BldA) [Mass fraction] 97 % Dr. Radha Khan MD Work Phone: 4(098)852-048185 [place] [address] 09-28-2024 14:46-0400 Systolic blood pressure 141 mm[Hg] Dr. Radha Khan MD Work Phone: 5(846)791-500126 [place] [address] 09-28-2024 13:26-0400 Body temperature 97.9 [degF] Dr. Radha Khan MD Work Phone: 7(341)402-351526 [place] [address] 09-28-2024 13:26-0400 Diastolic blood pressure 65 mm[Hg] Dr. Radha Khan MD Work Phone: 8(693)031-828826 [place] [address] 09-28-2024 13:26-0400 Heart rate 77 /min Dr. Radha Khan MD Work Phone: 4(128)694-598326 [place] [address] 09-28-2024 13:26-0400 Respiratory rate 16 /min Dr. Radha Khan MD Work Phone: 6(497)982-219726 [place] [address] 09-28-2024 13:26-0400 SaO2% (BldA) [Mass fraction] 98 % Dr. Radha Khan MD Work Phone: 8(531)684-315826 [place] [address] 09-28-2024 13:26-0400 Systolic blood pressure 139 mm[Hg] Dr. Radha Khan MD Work Phone: 5(915)054-235526 [place] [address] 09-27-2024 23:37-0400 Body mass index (BMI) [Ratio] 47.7 kg/m2 Dr. Radha Khan MD Work Phone: 6(023)579-744626 [place] [address] 09-27-2024 10:10-0400 Body height 175.[address] Radha Khan MD Work Phone: 6(720)790-569026 [place] [address] 09-27-2024 10:10-0400 Body weight 146.[address] Radha Khan MD Work Phone: 1(327)948-615826 [place] [address] 09-26-2024 18:10-0400 Body temperature 97.8 [degF] Dr. Radha Khan MD Work Phone: 4(642)606-031626 [place] [address] 09-26-2024 18:10-0400 Diastolic blood pressure 64 mm[Hg] Dr. Radha Khan MD Work Phone: [facility] 09-26-2024 18:10-0400 Heart rate 74 /min Dr. Radha Khan MD Work Phone: [facility] 09-26-2024 18:10-0400 Respiratory rate 26 /min Dr. Radha Khan MD Work Phone: [facility] 09-26-2024 18:10-0400 SaO2% (BldA) [Mass fraction] 94 % Dr. Radha Khan MD Work Phone: [facility] 09-26-2024 18:10-0400 Systolic blood pressure 133 mm[Hg] Dr. Radha Khan MD Work Phone: [facility] 09-26-2024 17:19-0400 Inhaled oxygen flow rate 4 L/min Dr. Radha Khan MD Work Phone: [facility] 09-26-2024 15:29-0400 Body height 175.[address] Radha Khan MD Work Phone: [facility] 09-24-2024 09:55-0400 Diastolic blood pressure 54 mm[Hg] Dick Nguyen MD Work Phone: [facility] 09-24-2024 09:55-0400 Heart rate 59 /min Dick Nguyen MD Work Phone: [facility] 09-24-2024 09:55-0400 Respiratory rate 20 /min Dick Nguyen MD Work Phone: [facility] 09-24-2024 09:55-0400 SaO2% (BldA) [Mass fraction] 100 % Dick Nguyen MD Work Phone: [facility] 09-24-2024 09:55-0400 Systolic blood pressure 119 mm[Hg] Dick Nguyen MD Work Phone: [facility] 09-24-2024 09:03-0400 Diastolic blood pressure 69 mm[Hg] Dick Nguyen MD Work Phone: [facility] 09-24-2024 09:03-0400 Systolic blood pressure 100 mm[Hg] Dick Nguyen MD Work Phone: [facility] 09-24-2024 08:55-0400 Body temperature 96.8 [degF] Dick Nguyen MD Work Phone: [facility] 09-24-2024 08:55-0400 Heart rate 57 /min Dick Nguyen MD Work Phone: 4(916)300-489952 [place] [address] 09-24-2024 08:55-0400 Respiratory rate 29 /min Dick Nguyen MD Work Phone: [facility] 09-24-2024 08:55-0400 SaO2% (BldA) [Mass fraction] 96 % Dick Nguyen MD Work Phone: [facility] 09-24-2024 06:54-0400 Body height 175.3 cm Dick Nguyen MD Work Phone: [facility] 09-24-2024 06:54-0400 Body mass index (BMI) [Ratio] 47.85 kg/m2 Dick Nguyen MD Work Phone: [facility] 09-24-2024 06:54-0400 Body weight 146.97 kg Dick Nguyen MD Work Phone: [facility] 09-16-2024 10:01-0400 Body height 175.[address] Radha Khan MD Work Phone: [facility] 09-16-2024 10:01-0400 Body mass index (BMI) [Ratio] 48.1 kg/m2 Dr. Radha Khan MD Work Phone: [facility] 09-16-2024 10:01-0400 Body weight 147.[address] Radha Khan MD Work Phone: [facility] 09-16-2024 10:01-0400 Diastolic blood pressure 70 mm[Hg] Dr. Radha Khan MD Work Phone: [facility] 09-16-2024 10:01-0400 Heart rate 72 /min Dr. Radha Khan MD Work Phone: [facility] 09-16-2024 10:01-0400 SaO2% (BldA) [Mass fraction] 96 % Dr. Radha Khan MD Work Phone: 2(368)814-600285 [place] [address] 09-16-2024 10:01-0400 Systolic blood pressure 109 mm[Hg] Dr. Radha Khan MD Work Phone: 7(806)282-660426 [place] [address] 09-15-2024 12:59-0400 Body height 175.[address] Radha Khan MD Work Phone: 8(125)226-800626 [place] [address] 09-15-2024 12:59-0400 Body mass index (BMI) [Ratio] 47.8 kg/m2 Dr. Radha Khan MD Work Phone: 2(620)170-351651 [address] 09-15-2024 12:59-0400 Body temperature 98.2 [degF] Dr. Radha Khan MD Work Phone: 6(843)333-136385 [place] [address] 09-15-2024 12:59-0400 Body weight 146.[address] Radha Khan MD Work Phone: [facility] 09-15-2024 12:59-0400 Diastolic blood pressure 59 mm[Hg] Dr. Radha Khan MD Work Phone: 8(538)952-403051 [address] 09-15-2024 12:59-0400 Heart rate 82 /min Dr. Radha Khan MD Work Phone: [facility] 09-15-2024 12:59-0400 Inhaled oxygen flow rate 4 L/min Dr. Radha Khan MD Work Phone: [facility] 09-15-2024 12:59-0400 Respiratory rate 17 /min Dr. Radha Khan MD Work Phone: [facility] 09-15-2024 12:59-0400 SaO2% (BldA) [Mass fraction] 94 % Dr. Radha Khan MD Work Phone: [facility] 09-15-2024 12:59-0400 Systolic blood pressure 104 mm[Hg] Dr. Radha Khan MD Work Phone: [facility] 08-28-2024 11:58-0400 Body temperature 97.9 [degF] Rosalino Padron MD Work Phone: [facility] 08-28-2024 11:58-0400 Body weight 143.79 kg Rosalino Padron MD Work Phone: [facility] 08-28-2024 11:58-0400 Diastolic blood pressure 70 mm[Hg] Rosalino Padron MD Work Phone: [facility] 08-28-2024 11:58-0400 Heart rate 76 /min Rosalino Padron MD Work Phone: [facility] 08-28-2024 11:58-0400 SaO2% (BldA) [Mass fraction] 95 % Rosalino Padron MD Work Phone: [facility] Comment on above: 4L O2 08-28-2024 11:58-0400 Systolic blood pressure 125 mm[Hg] Rosalino Padron MD Work Phone: [facility] 08-17-2024 11:25-0400 Body height 175.[address] Radha Khan MD Work Phone: [facility] 08-17-2024 11:25-0400 Body mass index (BMI) [Ratio] 46 kg/m2 Dr. Radha Khan MD Work Phone: [facility] 08-17-2024 11:25-0400 Body temperature 98.2 [degF] Dr. Radha Khan MD Work Phone: [facility] 08-17-2024 11:25-0400 Body weight 141.[address] Radha Khan MD Work Phone: [facility] 08-17-2024 11:25-0400 Diastolic blood pressure 70 mm[Hg] Dr. Radha Khan MD Work Phone: [facility] 08-17-2024 11:25-0400 Heart rate 74 /min Dr. Radha Khan MD Work Phone: [facility] 08-17-2024 11:25-0400 Inhaled oxygen flow rate 4 L/min Dr. Radha Khan MD Work Phone: [facility] 08-17-2024 11:25-0400 Respiratory rate 16 /min Dr. Radha Khan MD Work Phone: [facility] 08-17-2024 11:25-0400 SaO2% (BldA) [Mass fraction] 96 % Dr. Radha Khan MD Work Phone: [facility] 08-17-2024 11:25-0400 Systolic blood pressure 119 mm[Hg] Dr. Radha Khan MD Work Phone: [facility] 08-07-2024 14:09-0400 Body temperature 98.01 [degF] Rosalino Padron MD Work Phone: [facility] 08-07-2024 14:09-0400 Body weight 141.98 kg Rosalino Padron MD Work Phone: [facility] 08-07-2024 14:09-0400 Diastolic blood pressure 58 mm[Hg] Rosalino Padron MD Work Phone: [facility] 08-07-2024 14:09-0400 Heart rate 81 /min Rosalino Padron MD Work Phone: [facility] 08-07-2024 14:09-0400 SaO2% (BldA) [Mass fraction] 98 % Rosalino Padron MD Work Phone: [facility] 08-07-2024 14:09-0400 Systolic blood pressure 92 mm[Hg] Rosalino Padron MD Work Phone: [facility] 08-06-2024 14:41-0400 Body temperature 98.2 [degF] Dr. Radha Khan MD Work Phone: [facility] 08-06-2024 14:41-0400 Body weight 142.[address] Radha Khan MD Work Phone: [facility] 08-06-2024 14:41-0400 Diastolic blood pressure 69 mm[Hg] Dr. Radha Khan MD Work Phone: [facility] 08-06-2024 14:41-0400 Heart rate 80 /min Dr. Radha Khan MD Work Phone: [facility] 08-06-2024 14:41-0400 Inhaled oxygen flow rate 8 L/min Dr. Radha Khan MD Work Phone: [facility] 08-06-2024 14:41-0400 Respiratory rate 17 /min Dr. Radha Khan MD Work Phone: [facility] 08-06-2024 14:41-0400 SaO2% (BldA) [Mass fraction] 94 % Dr. Radha Khan MD Work Phone: [facility] 08-06-2024 14:41-0400 Systolic blood pressure 99 mm[Hg] Dr. Radha Khan MD Work Phone: [facility] 07-06-2024 13:44-0400 Body temperature 98.2 [degF] Dr. Radha Khan MD Work Phone: [facility] 07-06-2024 13:44-0400 Body weight 139.[address] Radha Khan MD Work Phone: [facility] 07-06-2024 13:44-0400 Diastolic blood pressure 68 mm[Hg] Dr. Radha Khan MD Work Phone: [facility] 07-06-2024 13:44-0400 Heart rate 91 /min Dr. Radha Khan MD Work Phone: [facility] 07-06-2024 13:44-0400 Inhaled oxygen flow rate 4 L/min Dr. Radha Khan MD Work Phone: [facility] 07-06-2024 13:44-0400 Respiratory rate 17 /min Dr. Radha Khan MD Work Phone: [facility] 07-06-2024 13:44-0400 SaO2% (BldA) [Mass fraction] 97 % Dr. Radha Khan MD Work Phone: [facility] 07-06-2024 13:44-0400 Systolic blood pressure 110 mm[Hg] Dr. Radha Khan MD Work Phone: [facility] 06-26-2024 11:10-0400 Body temperature 97.59 [degF] Rosalino Padron MD Work Phone: [facility] 06-26-2024 11:10-0400 Body weight 141.07 kg Rosalino Padron MD Work Phone: [facility] 06-26-2024 11:10-0400 Diastolic blood pressure 78 mm[Hg] Rosalino Padron MD Work Phone: [facility] 06-26-2024 11:10-0400 Heart rate 76 /min Rosalino Padron MD Work Phone: [facility] 06-26-2024 11:10-0400 SaO2% (BldA) [Mass fraction] 98 % Rosalino Padron MD Work Phone: [facility] Comment on above: pt on 4L O2 06-26-2024 11:10-0400 Systolic blood pressure 157 mm[Hg] Rosalino Padron MD Work Phone: [facility] 06-10-2024 08:19-0400 Body mass index (BMI) [Ratio] 45.3 kg/m2 Dr. Radha Khan MD Work Phone: [facility] 06-10-2024 08:19-0400 Body temperature 97.2 [degF] Dr. Radha Khan MD Work Phone: [facility] 06-10-2024 08:19-0400 Body weight 139.[address] Radha Khan MD Work Phone: 8(004)679-570551 [address] 06-10-2024 08:19-0400 Diastolic blood pressure 76 mm[Hg] Dr. Radha Khan MD Work Phone: 9(411)437-441826 [place] [address] 06-10-2024 08:19-0400 Heart rate 59 /min Dr. Radha Khan MD Work Phone: 6(390)714-719426 [place] [address] 06-10-2024 08:19-0400 Inhaled oxygen flow rate 4 L/min Dr. Radha Khan MD Work Phone: 1(916)756-666626 [place] [address] 06-10-2024 08:19-0400 Respiratory rate 20 /min Dr. Radha Khan MD Work Phone: 1(057)081-367626 [place] [address] 06-10-2024 08:19-0400 SaO2% (BldA) [Mass fraction] 99 % Dr. Radha Khan MD Work Phone: 8(119)720-052351 [address] 06-10-2024 08:19-0400 Systolic blood pressure 115 mm[Hg] Dr. Radha Khan MD Work Phone: 1(673)785-988285 [place] [address] 06-04-2024 13:50-0500 Body height 175.[address] Radha Khan MD Work Phone: 6(218)472-148226 [place] [address] 06-04-2024 13:50-0500 Body mass index (BMI) [Ratio] 45.1 kg/m2 Dr. Radha Khan MD Work Phone: 6(735)563-851385 [place] [address] 06-04-2024 13:50-0500 Body temperature 97.8 [degF] Dr. Radha Khan MD Work Phone: 4(774)163-097751 [address] 06-04-2024 13:50-0500 Body weight 138.[address] Radha Khan MD Work Phone: [facility] 06-04-2024 13:50-0500 Diastolic blood pressure 61 mm[Hg] Dr. Radha Khan MD Work Phone: [facility] 06-04-2024 13:50-0500 Heart rate 59 /min Dr. Radha Khan MD Work Phone: 5(249)017-502085 [place] [address] 06-04-2024 13:50-0500 Inhaled oxygen flow rate 4 L/min Dr. Radha Khan MD Work Phone: 1(543)494-492585 [address] [place] [address] 06-04-2024 13:50-0500 Respiratory rate 17 /min Dr. Radha Khan MD Work Phone: 1(429)967-469985 [place] [address] 06-04-2024 13:50-0500 SaO2% (BldA) [Mass fraction] 92 % Dr. Radha Khan MD Work Phone: [facility] 06-04-2024 13:50-0500 Systolic blood pressure 141 mm[Hg] Dr. Radha Khan MD Work Phone: 1(233)545-625985 [place] [address] 05-21-2024 10:44-0500 Body mass index (BMI) [Ratio] 43.7 kg/m2 Dr. Radha Khan MD Work Phone: 7(655)505-505485 [place] [address] 05-21-2024 10:44-0500 Body weight 134.[address] Radha Khan MD Work Phone: [facility] 05-21-2024 10:44-0500 Diastolic blood pressure 69 mm[Hg] Dr. Radha Khan MD Work Phone: 1(297)264-821085 [place] [address] 05-21-2024 10:44-0500 Heart rate 75 /min Dr. Radha Khan MD Work Phone: 7(461)918-837285 [place] [address] 05-21-2024 10:44-0500 Inhaled oxygen flow rate 4 L/min Dr. Radha Khan MD Work Phone: 4(846)026-617585 [place] [address] 05-21-2024 10:44-0500 Respiratory rate 18 /min Dr. Radha Khan MD Work Phone: [facility] 05-21-2024 10:44-0500 SaO2% (BldA) [Mass fraction] 100 % Dr. Radha Khan MD Work Phone: [facility] 05-21-2024 10:44-0500 Systolic blood pressure 105 mm[Hg] Dr. Radha Khan MD Work Phone: [facility] 05-06-2024 08:35-0500 Body temperature 96.69 [degF] Mey Bosz [employer]Y [employer] MEMBER - [employer]TER Work Phone: [facility] 05-06-2024 08:35-0500 Diastolic blood pressure 63 mm[Hg] Mey Bosz [employer]IOLOGY [employer]AC[employer] MEMBER - [employer]TER Work Phone: [facility] 05-06-2024 08:35-0500 Heart rate 72 /min Mey Bosz [employer]Y [employer] MEMBER - [employer]TER Work Phone: [facility] 05-06-2024 08:35-0500 Respiratory rate 20 /min Mey Bosz [employer]Y [employer] MEMBER - [employer]TER Work Phone: [facility] 05-06-2024 08:35-0500 SaO2% (BldA) [Mass fraction] 95 % Mey Bosz [employer]Y [employer]AC[employer] MEMBER - [employer]TER Work Phone: [facility] 05-06-2024 08:35-0500 Systolic blood pressure 112 mm[Hg] Mey Bosz [employer]IOLOGY FAC[employer]Y MEMBER - [employer]TER Work Phone: [facility] 05-05-2024 13:14-0500 Body temperature 98 [degF] Dr. Radha Khan MD Work Phone: [facility] 05-05-2024 13:14-0500 Diastolic blood pressure 63 mm[Hg] Dr. Radha Khan MD Work Phone: [facility] 05-05-2024 13:14-0500 Heart rate 66 /min Dr. Radha Khan MD Work Phone: [facility] 05-05-2024 13:14-0500 Respiratory rate 18 /min Dr. Radha Khan MD Work Phone: 2(875)765-503985 [place] [address] 05-05-2024 13:14-0500 SaO2% (BldA) [Mass fraction] 100 % Dr. Radha Khan MD Work Phone: 4(513)181-031385 [place] [address] 05-05-2024 13:14-0500 Systolic blood pressure 101 mm[Hg] Dr. Radha Khan MD Work Phone: 9(614)836-702626 [place] [address] 05-01-2024 12:31-0500 Body mass index (BMI) [Ratio] 44.4 kg/m2 Dr. Radha Khan MD Work Phone: 7(691)352-070026 [place] [address] 05-01-2024 12:31-0500 Body temperature 98.3 [degF] Dr. Radha Khan MD Work Phone: 8(138)098-183226 [place] [address] 05-01-2024 12:31-0500 Body weight 136.[address] Radha Khan MD Work Phone: 0(215)767-824326 [place] [address] 05-01-2024 12:31-0500 Diastolic blood pressure 60 mm[Hg] Dr. Radha Khan MD Work Phone: 3(750)270-726526 [place] [address] 05-01-2024 12:31-0500 Heart rate 70 /min Dr. Radha Khan MD Work Phone: 3(386)602-405426 [place] [address] 05-01-2024 12:31-0500 Inhaled oxygen flow rate 4 L/min Dr. Radha Khan MD Work Phone: 4(889)052-761751 [address] 05-01-2024 12:31-0500 Respiratory rate 18 /min Dr. Radha Khan MD Work Phone: 6(982)815-789726 [place] [address] 05-01-2024 12:31-0500 SaO2% (BldA) [Mass fraction] 100 % Dr. Radha Khan MD Work Phone: 9(273)265-342851 [address] 05-01-2024 12:31-0500 Systolic blood pressure 97 mm[Hg] Dr. Radha Khan MD Work Phone: [facility] 04-30-2024 14:32-0500 Body temperature 97.4 [degF] Dr. Radha Khan MD Work Phone: 3(380)805-662926 [place] [address] 04-30-2024 14:32-0500 Body weight 138.[address] Radha Khan MD Work Phone: 2(169)790-437326 [place] [address] 04-30-2024 14:32-0500 Diastolic blood pressure 58 mm[Hg] Dr. Radha Khan MD Work Phone: 2(619)365-434526 [place] [address] 04-30-2024 14:32-0500 Heart rate 73 /min Dr. Radha Khan MD Work Phone: 2(109)707-819226 [place] [address] 04-30-2024 14:32-0500 Inhaled oxygen flow rate 4 L/min Dr. Radha Khan MD Work Phone: 3(877)758-834326 [place] [address] 04-30-2024 14:32-0500 Respiratory rate 18 /min Dr. Radha Khan MD Work Phone: 0(141)143-685726 [place] [address] 04-30-2024 14:32-0500 SaO2% (BldA) [Mass fraction] 94 % Dr. Radha Khan MD Work Phone: 0(363)393-741026 [place] [address] 04-30-2024 14:32-0500 Systolic blood pressure 111 mm[Hg] Dr. Radha Khan MD Work Phone: 9(030)624-161226 [place] [address] 04-30-2024 13:26-0500 Body mass index (BMI) [Ratio] 44.7 kg/m2 Dr. Radha Khan MD Work Phone: 9(230)900-050826 [place] [address] 04-30-2024 13:26-0500 Body weight 137.[address] Radha Khan MD Work Phone: 8(167)185-861126 [place] [address] 04-30-2024 13:26-0500 Diastolic blood pressure 55 mm[Hg] Dr. Radha Khan MD Work Phone: 8(565)677-005826 [place] [address] 04-30-2024 13:26-0500 Heart rate 69 /min Dr. Radha Khan MD Work Phone: 3(876)515-574685 [place] [address] 04-30-2024 13:26-0500 Respiratory rate 18 /min Dr. Radha Khan MD Work Phone: 8(159)063-627026 [place] [address] 04-30-2024 13:26-0500 Systolic blood pressure 97 mm[Hg] Dr. Radha Khan MD Work Phone: 0(765)532-765526 [place] [address] 04-30-2024 11:30-0500 Body mass index (BMI) [Ratio] 44.7 kg/m2 Dr. Radha Khan MD Work Phone: 2(654)360-686926 [place] [address] 04-30-2024 11:30-0500 Body temperature 98.2 [degF] Dr. Radha Khan MD Work Phone: 1(242)769-767526 [place] [address] 04-30-2024 11:30-0500 Body weight 137.[address] Radha Khan MD Work Phone: 1(469)381-147926 [place] [address] 04-30-2024 11:30-0500 Diastolic blood pressure 74 mm[Hg] Dr. Radha Khan MD Work Phone: 6(277)004-432726 [place] [address] 04-30-2024 11:30-0500 Heart rate 80 /min Dr. Radha Khan MD Work Phone: 5(869)687-722826 [place] [address] 04-30-2024 11:30-0500 Inhaled oxygen flow rate 4 L/min Dr. Radha Khan MD Work Phone: 4(064)374-623826 [place] [address] 04-30-2024 11:30-0500 Respiratory rate 17 /min Dr. Radha Khan MD Work Phone: 2(686)990-070626 [place] [address] 04-30-2024 11:30-0500 SaO2% (BldA) [Mass fraction] 95 % Dr. Radha Khan MD Work Phone: 5(272)354-913626 [place] [address] 04-30-2024 11:30-0500 Systolic blood pressure 120 mm[Hg] Dr. Radha Khan MD Work Phone: 4(914)586-870026 [place] [address] 04-27-2024 14:43-0500 Body height 175.3 cm Suzy Jauregui MD Work Phone: [facility] 04-27-2024 14:43-0500 Body mass index (BMI) [Ratio] 46.07 kg/m2 Suzy Jauregui MD Work Phone: [facility] 04-27-2024 14:43-0500 Body weight 141.52 kg Suzy Jauregui MD Work Phone: [facility] 04-27-2024 14:43-0500 Diastolic blood pressure 60 mm[Hg] Suzy Jauregui MD Work Phone: [facility] 04-27-2024 14:43-0500 Heart rate 75 /min Suzy Jauregui MD Work Phone: [facility] 04-27-2024 14:43-0500 Respiratory rate 18 /min Suzy Jauregui MD Work Phone: [facility] 04-27-2024 14:43-0500 SaO2% (BldA) [Mass fraction] 95 % Suzy Jauregui MD Work Phone: [facility] 04-27-2024 14:43-0500 Systolic blood pressure 122 mm[Hg] Suzy Jauregui MD Work Phone: [facility] 04-25-2024 16:19-0500 Body mass index (BMI) [Ratio] 44.6 kg/m2 Dr. Radha Khan MD Work Phone: [facility] 04-25-2024 14:00-0500 Body temperature 98.5 [degF] Dr. Radha Khan MD Work Phone: [facility] 04-25-2024 14:00-0500 Diastolic blood pressure 54 mm[Hg] Dr. Radha Khan MD Work Phone: [facility] 04-25-2024 14:00-0500 Heart rate 93 /min Dr. Radha Khan MD Work Phone: [facility] 04-25-2024 14:00-0500 Inhaled oxygen flow rate 3.5 L/min Dr. Radha Khan MD Work Phone: [facility] 04-25-2024 14:00-0500 Respiratory rate 16 /min Dr. Radha Khan MD Work Phone: [facility] 04-25-2024 14:00-0500 SaO2% (BldA) [Mass fraction] 100 % Dr. Radha Khan MD Work Phone: 0(429)884-350785 [place] [address] 04-25-2024 14:00-0500 Systolic blood pressure 113 mm[Hg] Dr. Radha Khan MD Work Phone: 0(605)358-904385 [place] [address] 04-25-2024 09:20-0500 Body weight 137.[address] Radha Khan MD Work Phone: 7(344)215-878426 [place] [address] 04-22-2024 09:35-0500 Body mass index (BMI) [Ratio] 45.6 kg/m2 Dr. Radha Khan MD Work Phone: 4(713)579-035026 [place] [address] 04-22-2024 09:35-0500 Body temperature 97.3 [degF] Dr. Radha Khan MD Work Phone: 4(238)604-569426 [place] [address] 04-22-2024 09:35-0500 Body weight 140.[address] Radha Khan MD Work Phone: 7(317)488-087485 [place] [address] 04-22-2024 09:35-0500 Diastolic blood pressure 76 mm[Hg] Dr. Radha Khan MD Work Phone: 7(525)961-814285 [place] [address] 04-22-2024 09:35-0500 Heart rate 67 /min Dr. Radha Khan MD Work Phone: 0(258)791-613385 [place] [address] 04-22-2024 09:35-0500 Inhaled oxygen flow rate 4 L/min Dr. Radha Khan MD Work Phone: 2(454)783-766185 [place] [address] 04-22-2024 09:35-0500 Respiratory rate 20 /min Dr. Radha Khan MD Work Phone: 4(807)305-630385 [place] [address] 04-22-2024 09:35-0500 SaO2% (BldA) [Mass fraction] 99 % Dr. Radha Khan MD Work Phone: [facility] 04-22-2024 09:35-0500 Systolic blood pressure 143 mm[Hg] Dr. Radha Khan MD Work Phone: [facility] 04-16-2024 09:22-0500 Body mass index (BMI) [Ratio] 44.9 kg/m2 Dr. Radha Khan MD Work Phone: 4(396)707-215685 [place] [address] 04-16-2024 09:22-0500 Body weight 138.[address] Radha Khan MD Work Phone: 4(400)432-899885 [place] [address] 04-16-2024 09:22-0500 Diastolic blood pressure 56 mm[Hg] Dr. Radha Khan MD Work Phone: 1(388)947-068185 [place] [address] 04-16-2024 09:22-0500 Heart rate 79 /min Dr. Radha Khan MD Work Phone: 1(182)830-113451 [address] 04-16-2024 09:22-0500 Inhaled oxygen flow rate 4 L/min Dr. Radha Khan MD Work Phone: 7(752)413-268551 [address] 04-16-2024 09:22-0500 SaO2% (BldA) [Mass fraction] 78 % Dr. Radha Khan MD Work Phone: 6(226)536-574185 [place] [address] 04-16-2024 09:22-0500 Systolic blood pressure 105 mm[Hg] Dr. Radha Khan MD Work Phone: [facility] 04-15-2024 16:08-0500 Inhaled oxygen flow rate 4 L/min Dr. Radha Khan MD Work Phone: 1(362)917-143785 [place] [address] 04-15-2024 14:26-0500 Body temperature 97.9 [degF] Dr. Radha Khan MD Work Phone: [facility] 04-15-2024 14:26-0500 Diastolic blood pressure 66 mm[Hg] Dr. Radha Khan MD Work Phone: 7(315)904-443551 [address] 04-15-2024 14:26-0500 Heart rate 79 /min Dr. Radha Khan MD Work Phone: [facility] 04-15-2024 14:26-0500 Respiratory rate 16 /min Dr. Radha Khan MD Work Phone: [facility] 04-15-2024 14:26-0500 SaO2% (BldA) [Mass fraction] 94 % Dr. Radha Khan MD Work Phone: [facility] 04-15-2024 14:26-0500 Systolic blood pressure 102 mm[Hg] Dr. Radha Khan MD Work Phone: [facility] 04-15-2024 03:24-0500 Body mass index (BMI) [Ratio] 44.5 kg/m2 Dr. Radha Kahn MD Work Phone: [facility] 04-15-2024 03:24-0500 Body weight 136.[address] Radha Khan MD Work Phone: [facility] 04-13-2024 20:00-0500 Inhaled oxygen concentration 91 % Dr. Radha Khan MD Work Phone: [facility] 01-06-2024 10:49-0400 Body height 175.3 cm Oziel Culp MD Work Phone: [facility] 01-06-2024 10:49-0400 Body mass index (BMI) [Ratio] 46.07 kg/m2 Oziel Culp MD Work Phone: [facility] 01-06-2024 10:49-0400 Body weight 141.52 kg Oziel Culp MD Work Phone: [facility] 01-06-2024 10:49-0400 Diastolic blood pressure 72 mm[Hg] Oziel Culp MD Work Phone: [facility] 01-06-2024 10:49-0400 Heart rate 72 /min Oziel Culp MD Work Phone: [facility] 01-06-2024 10:49-0400 Systolic blood pressure 110 mm[Hg] Oziel Culp MD Work Phone: [facility] 10-05-2023 13:16-0400 Body temperature 97.39 [degF] Joe Rocha MD Work Phone: [facility] 10-05-2023 13:16-0400 Diastolic blood pressure 70 mm[Hg] Joe Rocha MD Work Phone: [facility] 10-05-2023 13:16-0400 Heart rate 83 /min Joe Rocha MD Work Phone: [facility] 10-05-2023 13:16-0400 Respiratory rate 20 /min Joe Rocha MD Work Phone: [facility] 10-05-2023 13:16-0400 SaO2% (BldA) [Mass fraction] 95 % Joe Rocha MD Work Phone: [facility] 10-05-2023 13:16-0400 Systolic blood pressure 107 mm[Hg] Joe Rocha MD Work Phone: [facility] 10-03-2023 15:30-0400 Body temperature 98.06 [degF] CHITO BUENROSTRO 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 10-03-2023 15:30-0400 Diastolic Blood Pressure Non-Invasive 73 mm[Hg] CHITO BUENROSTRO 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 10-03-2023 15:30-0400 Heart rate 82 /min CHITO BUENROSTRO 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 10-03-2023 15:30-0400 Reason For Taking VItal Signs CHITO BUENROSTRO 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 10-03-2023 15:30-0400 Respiratory rate 18 /min CHITO BUENROSTRO 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 10-03-2023 15:30-0400 Systolic Blood Pressure Non-Invasive 109 mm[Hg] CHITO MEDLEY-GABRIELA 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 10-03-2023 13:12-0400 Reason For Taking VItal Signs CHITO MEDLEY-GABRIELA 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 10-03-2023 11:39-0400 Body temperature 98.24 [degF] CHITO MEDLEY-GABRIELA 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 10-03-2023 11:39-0400 Diastolic Blood Pressure Non-Invasive 66 mm[Hg] CHITO GALINDO-GABRIELA 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 10-03-2023 11:39-0400 Heart rate 80 /min CHITO BAIGY-GABRIELA 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 10-03-2023 11:39-0400 Reason For Taking VItal Signs CHITO FREEDMANLEY 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 10-03-2023 11:39-0400 Respiratory rate 18 /min CHITO MEDLEY-GABRIELA 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 10-03-2023 11:39-0400 Systolic Blood Pressure Non-Invasive 112 mm[Hg] CHITO BAIGY-GABRIELA 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 10-03-2023 08:27-0400 Heart rate 79 /min CHITO GALINDO-GABRIELA 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 10-03-2023 06:05-0400 Body temperature 97.88 [degF] CHITO GALINDO-GABRIELA 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 10-03-2023 06:05-0400 Diastolic Blood Pressure Non-Invasive 76 mm[Hg] CHITO MEDLEY-GABRIELA 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 10-03-2023 06:05-0400 Heart rate 71 /min CHITO MEDLEY-GABRIELA 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 10-03-2023 06:05-0400 Respiratory rate 18 /min CHITO MEDLEY-GABRIELA 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 10-03-2023 06:05-0400 Systolic Blood Pressure Non-Invasive 112 mm[Hg] CHITO MEDLEY-GABRIELA 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 10-02-2023 08:45-0400 Heart rate 76 /min CHITO MEDLEY-GABRIELA 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 10-02-2023 03:49-0400 Heart rate 85 /min CHITO MEDLEY-GABRIELA 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 10-02-2023 01:23-0400 Body height 175.3 cm CHITO MEDLEY-GABRIELA [employer] FAC[employer] MEMBER[employer]TER [address] [place] [address] 10-02-2023 01:23-0400 Body weight 144.7 kg CHITO AMBROSEGABRIELA SOCI[employer]Y FAC[employer]Y MEMBER[employer]TER [address] [place] [address] 10-02-2023 01:23-0400 Body weight 47.09 kg/m2 CHITO MEDLEY-GABRIELA [employer] FAC[employer] MEMBER[employer] [address] [place] [address] 10-02-2023 01:17-0400 Heart rate 71 /min CHITO MEDLEY-GABRIELA [employer] FAC[employer] MEMBER[employer] [address] [place] [address] 10-02-2023 00:30-0400 Heart rate 82 /min CHITO BUENROSTRO 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 07-17-2023 15:35-0400 Body temperature 98.2 [degF] Dr. Radha Khan Work Phone: [facility] 07-17-2023 15:35-0400 Body weight 146.[address] Radha Khan Work Phone: [facility] 07-17-2023 15:35-0400 Diastolic blood pressure 67 mm[Hg] Dr. Radha Khan Work Phone: [facility] 07-17-2023 15:35-0400 Heart rate 80 /min Dr. Radha Khan Work Phone: [facility] 07-17-2023 15:35-0400 Respiratory rate 16 /min Dr. Radha Khan Work Phone: [facility] 07-17-2023 15:35-0400 SaO2% (BldA) [Mass fraction] 95 % Dr. Radha Khan Work Phone: [facility] 07-17-2023 15:35-0400 Systolic blood pressure 121 mm[Hg] Dr. Radha Khan Work Phone: [facility] 07-03-2023 11:02-0400 Body height 175.[address] Radha Khan Work Phone: [facility] 07-03-2023 11:02-0400 Body mass index (BMI) [Ratio] 48.1 kg/m2 Dr. Radha Khan Work Phone: [facility] 07-03-2023 11:02-0400 Body weight 147.[address] Radha Khan Work Phone: [facility] 07-03-2023 11:02-0400 Respiratory rate 16 /min Dr. Radha Khan Work Phone: [facility] 05-21-2023 14:43-0500 Body height 175.[address] Radha Khan Work Phone: [facility] 05-21-2023 14:43-0500 Body mass index (BMI) [Ratio] 48.1 kg/m2 Dr. Radha Khan Work Phone: [facility] 05-21-2023 14:43-0500 Body temperature 97.6 [degF] Dr. Radha Khan Work Phone: [facility] 05-21-2023 14:43-0500 Body weight 147.[address] Radha Khan Work Phone: [facility] 05-21-2023 14:43-0500 Diastolic blood pressure 81 mm[Hg] Dr. Radha Khan Work Phone: [facility] 05-21-2023 14:43-0500 Heart rate 83 /min Dr. Radha Khan Work Phone: [facility] 05-21-2023 14:43-0500 Respiratory rate 18 /min Dr. Radha Khan Work Phone: [facility] 05-21-2023 14:43-0500 SaO2% (BldA) [Mass fraction] 97 % Dr. Radha Khan Work Phone: [facility] 05-21-2023 14:43-0500 Systolic blood pressure 121 mm[Hg] Dr. Radha Khan Work Phone: [facility] 05-20-2023 13:21-0500 Body mass index (BMI) [Ratio] 48.3 kg/m2 Dr. Radha Khan Work Phone: [facility] 05-20-2023 13:21-0500 Body temperature 98.6 [degF] Dr. Radha Khan Work Phone: [facility] 05-20-2023 13:21-0500 Body weight 148.[address] Radha Khan Work Phone: [facility] 05-20-2023 13:21-0500 Diastolic blood pressure 68 mm[Hg] Dr. Radha Khan Work Phone: [facility] 05-20-2023 13:21-0500 Heart rate 76 /min Dr. Radha Khan Work Phone: [facility] 05-20-2023 13:21-0500 Respiratory rate 16 /min Dr. Radha Khan Work Phone: [facility] 05-20-2023 13:21-0500 SaO2% (BldA) [Mass fraction] 98 % Dr. Radha Khan Work Phone: [facility] 05-20-2023 13:21-0500 Systolic blood pressure 102 mm[Hg] Dr. Radha Khan Work Phone: [facility] 03-12-2023 12:03-0500 Diastolic blood pressure 72 mm[Hg] Dr. Radha Khan Work Phone: [facility] 03-12-2023 12:03-0500 Heart rate 101 /min Dr. Radha Khan Work Phone: [facility] 03-12-2023 12:03-0500 Systolic blood pressure 96 mm[Hg] Dr. Radha Khan Work Phone: [facility] 03-12-2023 08:59-0500 Body height 175.[address] Radha Khan Work Phone: [facility] 03-12-2023 08:59-0500 Body mass index (BMI) [Ratio] 47.1 kg/m2 Dr. Radha Khan Work Phone: [facility] 03-12-2023 08:59-0500 Body temperature 97.7 [degF] Dr. Radha Khan Work Phone: [facility] 03-12-2023 08:59-0500 Body weight 144.[address] Radha Khan Work Phone: [facility] 03-12-2023 08:59-0500 Respiratory rate 17 /min Dr. Radha Khan Work Phone: [facility] 03-12-2023 08:59-0500 SaO2% (BldA) [Mass fraction] 97 % Dr. Radha Khan Work Phone: [facility] 02-27-2023 10:43-0500 Body height 175.[address] Radha Khan Work Phone: [facility] 02-27-2023 10:43-0500 Body mass index (BMI) [Ratio] 46.9 kg/m2 Dr. Radha Khan Work Phone: [facility] 02-27-2023 10:43-0500 Body weight 144.[address] Radha Khan Work Phone: [facility] 02-27-2023 10:43-0500 Diastolic blood pressure 71 mm[Hg] Dr. Radha Khan Work Phone: [facility] 02-27-2023 10:43-0500 Heart rate 73 /min Dr. Radha Khan Work Phone: [facility] 02-27-2023 10:43-0500 Respiratory rate 20 /min Dr. Radha Khan Work Phone: [facility] 02-27-2023 10:43-0500 SaO2% (BldA) [Mass fraction] 100 % Dr. Radha Khan Work Phone: [facility] 02-27-2023 10:43-0500 Systolic blood pressure 103 mm[Hg] Dr. Radha Khan Work Phone: [facility] 02-18-2023 11:05-0500 Body temperature 97.8 [degF] Dr. Radha Khan Work Phone: [facility] 02-18-2023 11:05-0500 Diastolic blood pressure 63 mm[Hg] Dr. Radha Khan Work Phone: [facility] 02-18-2023 11:05-0500 Heart rate 69 /min Dr. Radha Khan Work Phone: [facility] 02-18-2023 11:05-0500 Respiratory rate 16 /min Dr. Radha Khan Work Phone: [facility] 02-18-2023 11:05-0500 SaO2% (BldA) [Mass fraction] 96 % Dr. Radha Khan Work Phone: [facility] 02-18-2023 11:05-0500 Systolic blood pressure 132 mm[Hg] Dr. Radha Khan Work Phone: [facility] 02-18-2023 09:54-0500 Body height 175.[address] Radha Khan Work Phone: [facility] 02-18-2023 09:54-0500 Body mass index (BMI) [Ratio] 47.5 kg/m2 Dr. Radha Khan Work Phone: [facility] 02-18-2023 09:54-0500 Body weight [address] Radha Khan Work Phone: [facility] 02-04-2023 13:15-0500 Body mass index (BMI) [Ratio] 48.2 kg/m2 Dr. Radha Khan Work Phone: [facility] 02-04-2023 13:15-0500 Body temperature 98 [degF] Dr. Radha Khan Work Phone: [facility] 02-04-2023 13:15-0500 Body weight 148.[address] Radha Khan Work Phone: [facility] 02-04-2023 13:15-0500 Diastolic blood pressure 62 mm[Hg] Dr. Radha Khan Work Phone: [facility] 02-04-2023 13:15-0500 Heart rate 80 /min Dr. Radha Khan Work Phone: [facility] 02-04-2023 13:15-0500 Respiratory rate 18 /min Dr. Radha Khan Work Phone: [facility] 02-04-2023 13:15-0500 SaO2% (BldA) [Mass fraction] 98 % Dr. Radha Khan Work Phone: [facility] 02-04-2023 13:15-0500 Systolic blood pressure 100 mm[Hg] Dr. Radha Khan Work Phone: 1(181)[phone] [place] [address] 01-01-2023 14:11-0400 Body height 175.[address] Radha Khan Work Phone: 3(207)660-064985 [place] [address] 01-01-2023 14:11-0400 Body mass index (BMI) [Ratio] 47.8 kg/m2 Dr. Radha Khan Work Phone: 6(355)[phone] [address] 01-01-2023 14:11-0400 Body temperature 97.3 [degF] Dr. Radha Khan Work Phone: 2(078)711-637085 [place] [address] 01-01-2023 14:11-0400 Body weight 146.[address] Radha Khan Work Phone: 9(601)004-500985 [place] [address] 01-01-2023 14:11-0400 Diastolic blood pressure 67 mm[Hg] Dr. Radha Khan Work Phone: 9(192)177-842851 [address] 01-01-2023 14:11-0400 Heart rate 75 /min Dr. Radha Khan Work Phone: 3(025)958-652285 [place] [address] 01-01-2023 14:11-0400 Respiratory rate 17 /min Dr. Radha Khan Work Phone: [facility] 01-01-2023 14:11-0400 SaO2% (BldA) [Mass fraction] 98 % Dr. Radha Khan Work Phone: [facility] 01-01-2023 14:11-0400 Systolic blood pressure 106 mm[Hg] Dr. Radha Khan Work Phone: [facility] 12-10-2022 11:33-0400 Body mass index (BMI) [Ratio] 47.8 kg/m2 Dr. Radha Khan Work Phone: [facility] 12-10-2022 11:33-0400 Body temperature 98.3 [degF] Dr. Radha Khan Work Phone: [facility] 12-10-2022 11:33-0400 Body weight 146.[address] Radha Khan Work Phone: [facility] 12-10-2022 11:33-0400 Diastolic blood pressure 70 mm[Hg] Dr. Radha Khan Work Phone: [facility] 12-10-2022 11:33-0400 Heart rate 72 /min Dr. Radha Khan Work Phone: [facility] 12-10-2022 11:33-0400 Respiratory rate 16 /min Dr. Radha Khan Work Phone: [facility] 12-10-2022 11:33-0400 SaO2% (BldA) [Mass fraction] 96 % Dr. Radha Khan Work Phone: [facility] 12-10-2022 11:33-0400 Systolic blood pressure 118 mm[Hg] Dr. Radha Khan Work Phone: [facility] 10-08-2022 14:22-0400 Diastolic blood pressure 72 mm[Hg] Dr. Radha Khan Work Phone: [facility] 10-08-2022 14:22-0400 Systolic blood pressure 107 mm[Hg] Dr. Radha Khan Work Phone: [facility] 09-03-2022 13:57-0400 Body height 175.[address] Radha Khan Work Phone: [facility] 09-03-2022 13:57-0400 Body mass index (BMI) [Ratio] 47 kg/m2 Dr. Radha Khan Work Phone: [facility] 09-03-2022 13:57-0400 Body temperature 98.6 [degF] Dr. Radha Khan Work Phone: [facility] 09-03-2022 13:57-0400 Body weight 144.[address] Radha Khan Work Phone: [facility] 09-03-2022 13:57-0400 Diastolic blood pressure 56 mm[Hg] Dr. Radha Khan Work Phone: [facility] 09-03-2022 13:57-0400 Heart rate 62 /min Dr. Radha Khan Work Phone: [facility] 09-03-2022 13:57-0400 Respiratory rate 16 /min Dr. Radha Khan Work Phone: [facility] 09-03-2022 13:57-0400 SaO2% (BldA) [Mass fraction] 94 % Dr. Radha Khan Work Phone: [facility] 09-03-2022 13:57-0400 Systolic blood pressure 90 mm[Hg] Dr. Radha Khan Work Phone: [facility] 08-03-2022 15:30-0400 Body mass index (BMI) [Ratio] 45.4 kg/m2 Dr. Radha Khan Work Phone: [facility] 08-03-2022 15:20-0400 Body temperature 97.9 [degF] Dr. Radha Khan Work Phone: [facility] 08-03-2022 15:20-0400 Diastolic blood pressure 78 mm[Hg] Dr. Radha Khan Work Phone: [facility] 08-03-2022 15:20-0400 Heart rate 107 /min Dr. Radha Khan Work Phone: [facility] 08-03-2022 15:20-0400 Respiratory rate 16 /min Dr. Radha Khan Work Phone: [facility] 08-03-2022 15:20-0400 SaO2% (BldA) [Mass fraction] 97 % Dr. Radha Khan Work Phone: [facility] 08-03-2022 15:20-0400 Systolic blood pressure 144 mm[Hg] Dr. Radha Khan Work Phone: [facility] 08-03-2022 05:22-0400 Body mass index (BMI) [Ratio] 45.4 kg/m2 Dr. Radha Khan Work Phone: [facility] 08-03-2022 05:22-0400 Body weight 139.[address] Radha Khan Work Phone: [facility] 08-02-2022 10:53-0400 Body height 175.[address] Radha Khan Work Phone: [facility] 06-18-2022 14:14-0400 Body height 175.[address] Radha Khan Work Phone: [facility] 06-18-2022 14:14-0400 Body mass index (BMI) [Ratio] 45.8 kg/m2 Dr. Radha Khan Work Phone: [facility] 06-18-2022 14:14-0400 Body temperature 96.7 [degF] Dr. Radha Khan Work Phone: [facility] 06-18-2022 14:14-0400 Body weight 140.[address] Radha Khan Work Phone: [facility] 06-18-2022 14:14-0400 Diastolic blood pressure 70 mm[Hg] Dr. Radha Khan Work Phone: [facility] 06-18-2022 14:14-0400 Heart rate 81 /min Dr. Radha Khan Work Phone: [facility] 06-18-2022 14:14-0400 Respiratory rate 18 /min Dr. Radha Khan Work Phone: [facility] 06-18-2022 14:14-0400 SaO2% (BldA) [Mass fraction] 98 % Dr. Radha Khan Work Phone: [facility] 06-18-2022 14:14-0400 Systolic blood pressure 110 mm[Hg] Dr. Radha Khan Work Phone: [facility] 06-12-2022 07:50-0400 Body mass index (BMI) [Ratio] 45.8 kg/m2 Dr. Radha Khan Work Phone: [facility] 06-12-2022 07:50-0400 Body temperature 97.3 [degF] Dr. Radha Khan Work Phone: [facility] 06-12-2022 07:50-0400 Body weight 140.[address] Radha Khan Work Phone: [facility] 06-12-2022 07:50-0400 Diastolic blood pressure 72 mm[Hg] Dr. Radha Khan Work Phone: [facility] 06-12-2022 07:50-0400 Heart rate 83 /min Dr. Radha Khan Work Phone: [facility] 06-12-2022 07:50-0400 Respiratory rate 18 /min Dr. Radha Khan Work Phone: [facility] 06-12-2022 07:50-0400 SaO2% (BldA) [Mass fraction] 97 % Dr. Radha Khan Work Phone: [facility] 06-12-2022 07:50-0400 Systolic blood pressure 115 mm[Hg] Dr. Radha Khan Work Phone: [facility] 05-21-2022 15:09-0500 Diastolic blood pressure 80 mm[Hg] Dr. Radha Khan Work Phone: [facility] 05-21-2022 15:09-0500 Systolic blood pressure 130 mm[Hg] Dr. Radha Khan Work Phone: [facility] 05-21-2022 15:09-0500 Body mass index (BMI) [Ratio] 45.6 kg/m2 Dr. Radha Khan Work Phone: [facility] 05-21-2022 15:09-0500 Body weight 140.[address] Radha Khan Work Phone: [facility] 05-21-2022 15:09-0500 Heart rate 80 /min Dr. Radha Khan Work Phone: [facility] 05-21-2022 15:09-0500 Respiratory rate 18 /min Dr. Radha Khan Work Phone: [facility] 05-21-2022 15:09-0500 SaO2% (BldA) [Mass fraction] 94 % Dr. Radha Khan Work Phone: 2(043)[phone] [address] 05-09-2022 08:42-0500 Body height 175.[address] Radha Khan Work Phone: 4(452)732-188785 [place] [address] 05-09-2022 08:42-0500 Body weight 136.[address] Radha Khan Work Phone: 3(617)997-579385 [place] [address] 05-08-2022 08:18-0500 Body mass index (BMI) [Ratio] 44.6 kg/m2 Dr. Radha Khan Work Phone: 1(226)314-676485 [place] [address] 05-03-2022 08:34-0500 Body mass index (BMI) [Ratio] 44.6 kg/m2 Dr. Radha Khan Work Phone: 8(347)785-311485 [place] [address] 05-03-2022 08:34-0500 Body weight 136.[address] Radha Khan Work Phone: [facility] 05-03-2022 08:34-0500 Diastolic blood pressure 84 mm[Hg] Dr. Radha Khan Work Phone: 1(897)830-166685 [place] [address] 05-03-2022 08:34-0500 Heart rate 92 /min Dr. Radha Khan Work Phone: [facility] 05-03-2022 08:34-0500 Respiratory rate 20 /min Dr. Radha Khan Work Phone: 3(279)719-379685 [place] [address] 05-03-2022 08:34-0500 SaO2% (BldA) [Mass fraction] 95 % Dr. Radha Khan Work Phone: [facility] 05-03-2022 08:34-0500 Systolic blood pressure 143 mm[Hg] Dr. Radha Khan Work Phone: [facility] 03-12-2022 10:43-0500 Body height 175.[address] Radha Khan Work Phone: [facility] 03-12-2022 10:43-0500 Body mass index (BMI) [Ratio] 45.6 kg/m2 Dr. Radha Khan Work Phone: 4(500)[phone] [place] [address] 03-12-2022 10:43-0500 Body temperature 97.2 [degF] Dr. Radha Khan Work Phone: 1(128)303-338885 [place] [address] 03-12-2022 10:43-0500 Body weight 140.[address] Radha Khan Work Phone: [facility] 03-12-2022 10:43-0500 Diastolic blood pressure 59 mm[Hg] Dr. Radha Khan Work Phone: [facility] 03-12-2022 10:43-0500 Heart rate 78 /min Dr. Radha Khan Work Phone: [facility] 03-12-2022 10:43-0500 Respiratory rate 18 /min Dr. Radha Khan Work Phone: [facility] 03-12-2022 10:43-0500 SaO2% (BldA) [Mass fraction] 92 % Dr. Radha Khan Work Phone: [facility] 03-12-2022 10:43-0500 Systolic blood pressure 92 mm[Hg] Dr. Radha Khan Work Phone: [facility] 02-19-2022 08:31-0500 Body height 175.[address] Radha Khan Work Phone: [facility] Work Phone: 02-19-2022 08:31-0500 Body mass index (BMI) [Ratio] 45.8 kg/m2 Dr. Radha Khan Work Phone: [facility] 02-19-2022 08:31-0500 Body weight 140.[address] Radha Khan Work Phone: [facility] 02-19-2022 08:31-0500 Diastolic blood pressure 64 mm[Hg] Dr. Radha Khan Work Phone: [facility] 02-19-2022 08:31-0500 Heart rate 68 /min Dr. Radha Khan Work Phone: [facility] 02-19-2022 08:31-0500 Respiratory rate 18 /min Dr. Radha Khan Work Phone: [facility] 02-19-2022 08:31-0500 Systolic blood pressure 125 mm[Hg] Dr. Radha Khan Work Phone: [facility] 02-16-2022 12:47-0500 Body weight 136.[address] Radha Khan Work Phone: [facility] 02-16-2022 12:47-0500 Heart rate 77 /min Dr. Radha Khan Work Phone: [facility] 02-16-2022 12:47-0500 Inhaled oxygen flow rate 2 L/min Dr. Radha Khan Work Phone: [facility] 02-16-2022 12:47-0500 SaO2% (BldA) [Mass fraction] 98 % Dr. Radha Khan Work Phone: [facility] 02-12-2022 08:54-0500 Body mass index (BMI) [Ratio] 44.6 kg/m2 Dr. Radha Khan Work Phone: [facility] 02-12-2022 08:54-0500 Body temperature 98.2 [degF] Dr. Radha Khan Work Phone: [facility] 02-12-2022 08:54-0500 Body weight 137.[address] Radha Khan Work Phone: [facility] 02-12-2022 08:54-0500 Diastolic blood pressure 78 mm[Hg] Dr. Radha Khan Work Phone: [facility] 02-12-2022 08:54-0500 Heart rate 69 /min Dr. Radha Khan Work Phone: [facility] 02-12-2022 08:54-0500 Respiratory rate 18 /min Dr. Radha Khan Work Phone: [facility] 02-12-2022 08:54-0500 SaO2% (BldA) [Mass fraction] 98 % Dr. Radha Khan Work Phone: [facility] 02-12-2022 08:54-0500 Systolic blood pressure 122 mm[Hg] Dr. Radha Khan Work Phone: [facility] 01-15-2022 10:51-0400 Body mass index (BMI) [Ratio] 45.5 kg/m2 Dr. Radha Khan Work Phone: [facility] 01-15-2022 10:51-0400 Body temperature 97 [degF] Dr. Radha Khan Work Phone: [facility] 01-15-2022 10:51-0400 Body weight 139.[address] Radha Khan Work Phone: [facility] 01-15-2022 10:51-0400 Diastolic blood pressure 76 mm[Hg] Dr. Radha Khan Work Phone: [facility] 01-15-2022 10:51-0400 Heart rate 76 /min Dr. Radha Khan Work Phone: [facility] 01-15-2022 10:51-0400 Respiratory rate 18 /min Dr. Radha Khan Work Phone: [facility] 01-15-2022 10:51-0400 SaO2% (BldA) [Mass fraction] 93 % Dr. Radha Khan Work Phone: [facility] 01-15-2022 10:51-0400 Systolic blood pressure 124 mm[Hg] Dr. Radha Khan Work Phone: [facility] 11-13-2021 15:28-0400 Body mass index (BMI) [Ratio] 44.6 kg/m2 Dr. Radha Khan Work Phone: [facility] Work Phone: 11-13-2021 15:28-0400 Body weight 136.[address] Radha Khan Work Phone: [facility] Work Phone: 11-13-2021 15:28-0400 Diastolic blood pressure 64 mm[Hg] Dr. Radha Khan Work Phone: [facility] Work Phone: 11-13-2021 15:28-0400 Heart rate 79 /min Dr. Radha Khan Work Phone: [facility] Work Phone: 11-13-2021 15:28-0400 Respiratory rate 18 /min Dr. Radha Khan Work Phone: [facility] Work Phone: 11-13-2021 15:28-0400 Systolic blood pressure 110 mm[Hg] Dr. Radha Khan Work Phone: [facility] Work Phone: 09-07-2021 14:21-0400 Body height 175.[address] Radha Khan Work Phone: [facility] Work Phone: 09-07-2021 14:21-0400 Body mass index (BMI) [Ratio] 45 kg/m2 Dr. Radha Khan Work Phone: [facility] Work Phone: 09-07-2021 14:21-0400 Body weight 138.[address] Radha Khan Work Phone: [facility] Work Phone: 09-07-2021 14:21-0400 Diastolic blood pressure 79 mm[Hg] Dr. Radha Khan Work Phone: [facility] Work Phone: 09-07-2021 14:21-0400 Heart rate 79 /min Dr. Radha Khan Work Phone: [facility] Work Phone: 09-07-2021 14:21-0400 Respiratory rate 18 /min Dr. Radha Khan Work Phone: [facility] Work Phone: 09-07-2021 14:21-0400 SaO2% (BldA) [Mass fraction] 96 % Dr. Rahda Khan Work Phone: [facility] Work Phone: 09-07-2021 14:21-0400 Systolic blood pressure 153 mm[Hg] Dr. Radha Khan Work Phone: [facility] Work Phone: 09-04-2021 10:10-0400 Diastolic blood pressure 82 mm[Hg] Dr. Radha Khan Work Phone: [facility] Work Phone: 09-04-2021 10:10-0400 Systolic blood pressure 172 mm[Hg] Dr. Radha Khan Work Phone: [facility] Work Phone: 09-04-2021 09:10-0400 Heart rate 78 /min Dr. Radha Khan Work Phone: [facility] Work Phone: 09-04-2021 09:10-0400 SaO2% (BldA) [Mass fraction] 95 % Dr. Radha Khan Work Phone: [facility] Work Phone: 09-04-2021 08:44-0400 Respiratory rate 16 /min Dr. Radha Khan Work Phone: [facility] Work Phone: 09-04-2021 06:22-0400 Body height 175.[address] Radha Khan Work Phone: [facility] Work Phone: 09-04-2021 06:22-0400 Body mass index (BMI) [Ratio] 45.1 kg/m2 Dr. Radha Khan Work Phone: [facility] Work Phone: 09-04-2021 06:22-0400 Body temperature 97.4 [degF] Dr. Radha Khan Work Phone: [facility] Work Phone: 09-04-2021 06:22-0400 Body weight 138.[address] Radha Khan Work Phone: [facility] Work Phone: 08-10-2021 13:42-0400 Body mass index (BMI) [Ratio] 44.5 kg/m2 Dr. Radha Khan Work Phone: [facility] Work Phone: 08-10-2021 13:42-0400 Body temperature 95.7 [degF] Dr. Radha Khan Work Phone: [facility] Work Phone: 08-10-2021 13:42-0400 Body weight 136.[address] Radha Khan Work Phone: [facility] Work Phone: 08-10-2021 13:42-0400 Diastolic blood pressure 80 mm[Hg] Dr. Radha Khan Work Phone: [facility] Work Phone: 08-10-2021 13:42-0400 Heart rate 84 /min Dr. Radha Khan Work Phone: [facility] Work Phone: 08-10-2021 13:42-0400 Respiratory rate 18 /min Dr. Radha Khan Work Phone: [facility] Work Phone: 08-10-2021 13:42-0400 SaO2% (BldA) [Mass fraction] 96 % Dr. Radha Khan Work Phone: [facility] Work Phone: 08-10-2021 13:42-0400 Systolic blood pressure 140 mm[Hg] Dr. Radha Khan Work Phone: [facility] Work Phone: 08-10-2021 13:42-0400 Body height 175.[address] Radha Khan Work Phone: [facility] Work Phone: 08-10-2021 13:42-0400 Body mass index (BMI) [Ratio] 44.5 kg/m2 Dr. Radha Khan Work Phone: [facility] Work Phone: 08-10-2021 13:42-0400 Body temperature 95.7 [degF] Dr. Radha Khan Work Phone: [facility] Work Phone: 08-10-2021 13:42-0400 Body weight 136.[address] Radha Khan Work Phone: [facility] Work Phone: 08-10-2021 13:42-0400 Diastolic blood pressure 80 mm[Hg] Dr. Radha Khan Work Phone: [facility] Work Phone: 08-10-2021 13:42-0400 Heart rate 84 /min Dr. Radha Khan Work Phone: [facility] Work Phone: 08-10-2021 13:42-0400 Respiratory rate 18 /min Dr. Radha Khan Work Phone: [facility] Work Phone: 08-10-2021 13:42-0400 SaO2% (BldA) [Mass fraction] 96 % Dr. Radha Khan Work Phone: [facility] Work Phone: 08-10-2021 13:42-0400 Systolic blood pressure 140 mm[Hg] Dr. Radha Khan Work Phone: [facility] Work Phone: 07-16-2021 16:25-0400 Body temperature 98.7 [degF] Dr. Radha Khan Work Phone: [facility] Work Phone: 07-16-2021 16:25-0400 Diastolic blood pressure 75 mm[Hg] Dr. Radha Khan Work Phone: [facility] Work Phone: 07-16-2021 16:25-0400 Heart rate 73 /min Dr. Radha Khan Work Phone: [facility] Work Phone: 07-16-2021 16:25-0400 Respiratory rate 18 /min Dr. Radha Khan Work Phone: [facility] Work Phone: 07-16-2021 16:25-0400 SaO2% (BldA) [Mass fraction] 99 % Dr. Radha Khan Work Phone: [facility] Work Phone: 07-16-2021 16:25-0400 Systolic blood pressure 155 mm[Hg] Dr. Rdaha Khan Work Phone: [facility] Work Phone: 07-16-2021 14:17-0400 Body height 175.[address] Radha Khan Work Phone: [facility] Work Phone: 07-16-2021 14:17-0400 Body mass index (BMI) [Ratio] 44.9 kg/m2 Dr. Radha Khan Work Phone: [facility] Work Phone: 07-16-2021 14:17-0400 Body weight [address] Radha Khan Work Phone: [facility] Work Phone: 07-13-2021 10:31-0400 Body mass index (BMI) [Ratio] 44.4 kg/m2 Dr. Radha Khan Work Phone: [facility] Work Phone: 07-13-2021 10:31-0400 Body temperature 98.2 [degF] Dr. Radha Khan Work Phone: [facility] Work Phone: 07-13-2021 10:31-0400 Body weight 136.[address] Radha Khan Work Phone: [facility] Work Phone: 07-13-2021 10:31-0400 Diastolic blood pressure 72 mm[Hg] Dr. Radha Khan Work Phone: [facility] Work Phone: 07-13-2021 10:31-0400 Heart rate 73 /min Dr. Radha Khan Work Phone: [facility] Work Phone: 07-13-2021 10:31-0400 Respiratory rate 17 /min Dr. Radha Khan Work Phone: [facility] Work Phone: 07-13-2021 10:31-0400 SaO2% (BldA) [Mass fraction] 99 % Dr. Radha Khan Work Phone: [facility] Work Phone: 07-13-2021 10:31-0400 Systolic blood pressure 115 mm[Hg] Dr. Radha Khan Work Phone: [facility] Work Phone: 07-13-2021 10:31-0400 Body mass index (BMI) [Ratio] 44.4 kg/m2 Dr. Radha Khan Work Phone: [facility] Work Phone: 07-13-2021 10:31-0400 Body temperature 98.2 [degF] Dr. Radha Khan Work Phone: [facility] Work Phone: 07-13-2021 10:31-0400 Body weight 136.[address] Radha Khan Work Phone: [facility] Work Phone: 07-13-2021 10:31-0400 Diastolic blood pressure 72 mm[Hg] Dr. Radha Khan Work Phone: [facility] Work Phone: 07-13-2021 10:31-0400 Heart rate 73 /min Dr. Radha Khan Work Phone: [facility] Work Phone: 07-13-2021 10:31-0400 Respiratory rate 17 /min Dr. Radha Khan Work Phone: [facility] Work Phone: 07-13-2021 10:31-0400 SaO2% (BldA) [Mass fraction] 99 % Dr. Radha Khan Work Phone: [facility] Work Phone: 07-13-2021 10:31-0400 Systolic blood pressure 115 mm[Hg] Dr. Radha Khan Work Phone: [facility] Work Phone: 07-12-2021 12:50-0400 Body weight 136.[address] Radha Khan Work Phone: [facility] Work Phone: 07-12-2021 12:50-0400 Diastolic blood pressure 83 mm[Hg] Dr. Radha Khan Work Phone: [facility] Work Phone: 07-12-2021 12:50-0400 Heart rate 72 /min Dr. Radha Khan Work Phone: [facility] Work Phone: 07-12-2021 12:50-0400 Respiratory rate 18 /min Dr. Radha Khan Work Phone: [facility] Work Phone: 07-12-2021 12:50-0400 SaO2% (BldA) [Mass fraction] 100 % Dr. Radha Khan Work Phone: [facility] Work Phone: 07-12-2021 12:50-0400 Systolic blood pressure 148 mm[Hg] Dr. Radha Khan Work Phone: [facility] Work Phone: 07-12-2021 12:50-0400 Body weight 136.[address] Radha Khan Work Phone: [facility] Work Phone: 07-12-2021 12:50-0400 Diastolic blood pressure 83 mm[Hg] Dr. Radha Khan Work Phone: [facility] Work Phone: 07-12-2021 12:50-0400 Heart rate 72 /min Dr. Radha Khan Work Phone: [facility] Work Phone: 07-12-2021 12:50-0400 Respiratory rate 18 /min Dr. Radha Khan Work Phone: [facility] Work Phone: 07-12-2021 12:50-0400 SaO2% (BldA) [Mass fraction] 100 % Dr. Radha Khan Work Phone: [facility] Work Phone: 07-12-2021 12:50-0400 Systolic blood pressure 148 mm[Hg] Dr. Radha Khan Work Phone: [facility] Work Phone: 06-29-2021 13:09-0400 Body mass index (BMI) [Ratio] 43.6 kg/m2 Dr. Radha Khan Work Phone: [facility] Work Phone: 06-29-2021 13:09-0400 Body temperature 96.9 [degF] Dr. Radha Khan Work Phone: [facility] Work Phone: 06-29-2021 13:09-0400 Body weight 133.[address] Radha Khan Work Phone: [facility] Work Phone: 06-29-2021 13:09-0400 Diastolic blood pressure 76 mm[Hg] Dr. Radha Khan Work Phone: [facility] Work Phone: 06-29-2021 13:09-0400 Heart rate 98 /min Dr. Radha Khan Work Phone: [facility] Work Phone: 06-29-2021 13:09-0400 Respiratory rate 18 /min Dr. Radha Khan Work Phone: [facility] Work Phone: 06-29-2021 13:09-0400 SaO2% (BldA) [Mass fraction] 98 % Dr. Radha Khan Work Phone: [facility] Work Phone: 06-29-2021 13:09-0400 Systolic blood pressure 110 mm[Hg] Dr. Radha Khan Work Phone: [facility] Work Phone: 06-29-2021 13:09-0400 Body mass index (BMI) [Ratio] 43.6 kg/m2 Dr. Radha Khan Work Phone: [facility] Work Phone: 06-29-2021 13:09-0400 Body temperature 96.9 [degF] Dr. Radha Khan Work Phone: [facility] Work Phone: 06-29-2021 13:09-0400 Body weight 133.[address] Radha Khan Work Phone: [facility] Work Phone: 06-29-2021 13:09-0400 Diastolic blood pressure 76 mm[Hg] Dr. Radha Khan Work Phone: [facility] Work Phone: 06-29-2021 13:09-0400 Heart rate 98 /min Dr. Radha Khan Work Phone: [facility] Work Phone: 06-29-2021 13:09-0400 Respiratory rate 18 /min Dr. Radha Khan Work Phone: [facility] Work Phone: 06-29-2021 13:09-0400 SaO2% (BldA) [Mass fraction] 98 % Dr. Radha Khan Work Phone: [facility] Work Phone: 06-29-2021 13:09-0400 Systolic blood pressure 110 mm[Hg] Dr. Radha Khan Work Phone: [facility] Work Phone: 06-20-2021 12:08-0400 Heart rate 90 /min Dr. Radha Khan Work Phone: [facility] Work Phone: 06-20-2021 10:32-0400 SaO2% (BldA) [Mass fraction] 95 % Dr. Radha Khan Work Phone: [facility] Work Phone: 06-20-2021 09:00-0400 Body temperature 97.8 [degF] Dr. Radha Khan Work Phone: [facility] Work Phone: 06-20-2021 09:00-0400 Diastolic blood pressure 82 mm[Hg] Dr. Radha Khan Work Phone: [facility] Work Phone: 06-20-2021 09:00-0400 Respiratory rate 18 /min Dr. Radha Khan Work Phone: [facility] Work Phone: 06-20-2021 09:00-0400 Systolic blood pressure 154 mm[Hg] Dr. Radha Khan Work Phone: [facility] Work Phone: 06-20-2021 06:00-0400 Body weight [address] Radha Khan Work Phone: [facility] Work Phone: 06-19-2021 10:46-0400 Body mass index (BMI) [Ratio] 44.3 kg/m2 Dr. Radha Khan Work Phone: [facility] Work Phone: 06-15-2021 14:08-0400 Body weight 139.[address] Radha Khan Work Phone: [facility] Work Phone: 06-15-2021 14:08-0400 Heart rate 84 /min Dr. Radha Khan Work Phone: [facility] Work Phone: 06-15-2021 14:08-0400 SaO2% (BldA) [Mass fraction] 97 % Dr. Radha Khan Work Phone: [facility] Work Phone: 06-01-2021 13:31-0500 Body mass index (BMI) [Ratio] 43.9 kg/m2 Dr. Radha Khan Work Phone: [facility] Work Phone: 06-01-2021 13:31-0500 Body temperature 96.9 [degF] Dr. Radha Khan Work Phone: [facility] Work Phone: 06-01-2021 13:31-0500 Body weight 134.[address] Radha Khan Work Phone: [facility] Work Phone: 06-01-2021 13:31-0500 Diastolic blood pressure 70 mm[Hg] Dr. Radha Khan Work Phone: [facility] Work Phone: 06-01-2021 13:31-0500 Heart rate 78 /min Dr. Radha Khan Work Phone: [facility] Work Phone: 06-01-2021 13:31-0500 Respiratory rate 18 /min Dr. Radha Khan Work Phone: [facility] Work Phone: 06-01-2021 13:31-0500 SaO2% (BldA) [Mass fraction] 100 % Dr. Radha Khan Work Phone: [facility] Work Phone: 06-01-2021 13:31-0500 Systolic blood pressure 110 mm[Hg] Dr. Radha Khan Work Phone: [facility] Work Phone: 06-01-2021 12:31-0500 Body mass index (BMI) [Ratio] 43.9 kg/m2 Dr. Radha Khan Work Phone: [facility] Work Phone: 06-01-2021 12:31-0500 Body temperature 96.9 [degF] Dr. Radha Khan Work Phone: [facility] Work Phone: 06-01-2021 12:31-0500 Body weight 134.[address] Radha Khan Work Phone: [facility] Work Phone: 06-01-2021 12:31-0500 Diastolic blood pressure 70 mm[Hg] Dr. Radha Khan Work Phone: [facility] Work Phone: 06-01-2021 12:31-0500 Heart rate 78 /min Dr. Radha Khan Work Phone: [facility] Work Phone: 06-01-2021 12:31-0500 Respiratory rate 18 /min Dr. Radha Khan Work Phone: [facility] Work Phone: 06-01-2021 12:31-0500 SaO2% (BldA) [Mass fraction] 100 % Dr. Radha Khan Work Phone: [facility] Work Phone: 06-01-2021 12:31-0500 Systolic blood pressure 110 mm[Hg] Dr. Radha Khan Work Phone: [facility] Work Phone: 10-13-2020 15:48-0400 Body mass index (BMI) [Ratio] 45.2 kg/m2 Dr. Radha Khan Work Phone: [facility] Work Phone: 10-13-2020 15:48-0400 Body mass index (BMI) [Ratio] 45.2 kg/m2 Dr. Radha Khan Work Phone: [facility] Work Phone: Encounters Encounter Date Encounter Type Care Provider Facility Start: 01-19-2025 ambulatory aRdha Khan Facility: [facility] Start: 01-18-2025 End: 01-18-2025 Office outpatient visit 25 minutes Oziel Culp MD Work Phone: [facility] Comment on above: Bilateral carotid ar christine stenosis (Primary Dx); Transient alteration of awareness Start: 01-18-2025 End: 01-18-2025 [facility] Start: 01-15-2025 End: 01-15-2025 Office outpatient visit 40 minutes Rosalino Padron MD Work Phone: [facility] Comment on above: ILD (interstitial lavonne ng disease) (Multi) (Primary Dx); High risk medication use; Chronic respiratory failure with hypoxia; BMI 40.0-44.9, adult (Multi); Diastolic heart failure, unspecified HF chronicity (Multi); KIANNA (obstructive sleep apnea) Start: 01-15-2025 End: 01-15-2025 Subsequent hospital visit by physician Oni Rousseau Pft Rm 2 [facility] Comment on above: ILD (interstitial lavonne ng disease) (Multi) ILD (interstitial lavonne ng disease) (Multi); Chronic respiratory failure with hypoxia Start: 01-15-2025 End: 01-15-2025 ambulatory ROSALINO PADRON [facility] Start: 01-12-2025 End: 01-12-2025 ambulatory Brandt Winter Facility:[facility] Start: 01-07-2025 ambulatory Brandt Norma Facility:[facility] Start: 12-23-2024 End: 12-24-2024 Juan Diego Davis DO -Emergency Departmen t Work Phone: Start: 12-23-2024 End: 12-24-2024 Emergency department patient visit Dr. Toni Vann MD Work Phone: -Emergency Department Start: 12-17-2024 End: 12-17-[address] Toni Vann MD Work Phone: -Medical Out Start: 12-17-2024 End: 12-17-2024 Dr. Brandt Winter MD -Medical Out Work Phone: Start: 12-17-[facility] Start: 12-17-2024 Dr. Marjorie Hernandez MD -[facility] Work Phone: Start: 12-17-2024 End: 12-29-2024 Dr. Marjorie [facility] Work Phone: Start: 12-17-2024 End: 12-29-[address] Toni Vann MD Work Phone: [facility] Start: 12-16-2024 [facility] Start: 12-16-2024 ambulatory [facility] Start: 12-11-2024 End: 12-11-2024 Telephone encounter Kandice Curran RN [facility] Start: 12-10-2024 End: 12-10-2024 Dr. Brandt Winter MD -Medical Out Work Phone: Start: 12-10-2024 End: 12-10-[address] Radha Khan MD Work Phone: -Medical Out Start: 12-09-2024 Dr. Rito olvera MD -[facility] Start: 11-28-2024 Dr. Ochoa [facility] Work Phone: Start: 11-27-2024 Dr. Ochoa [facility] Work Phone: Start: 11-26-2024 ambulatory [facility] Facility[facility] Start: 11-26-2024 End: 11-28-2024 Evaluation and management of inpatient Dr. Radha Khan MD Work Phone: -Progressive Care Unit Start: 11-26-2024 End: 11-28-2024 Dr. Ochoa Monzon [facility] Work Phone: Start: 11-25-2024 End: 11-25-2024 SAV Rojas -[facility] Work Phone: Start: 11-25-2024 End: 11-25-[address] Radha Khan MD Work Phone: -[facility] Start: 11-19-2024 End: 11-19-2024 ambulatory [...] Start: 11-13-2024 End: 11-13-2024 ambulatory ROSALINO PADRON [facility] Start: 11-12-2024 End: 11-12-2024 Dr. Toni Vann MD -[facility] Work Phone: Start: 11-12-2024 End: 11-12-[address] Radha Khan MD Work Phone: [facility] Start: 11-09-2024 Dr. Karina Benítez DO -Phy sical Therapy Work Phone: Start: 11-03-2024 End: 11-03-[address] Radha Khan MD Work Phone: -[facility] Start: 11-03-2024 End: 11-03-2024 Dr. Rito Lundberg MD -[facility] Work Phone: Start: 11-02-2024 Dr. Karina Benítez DO -Phy sical Therapy Work Phone: Start: 10-31-2024 End: 11-02-2024 Martina Loya APRN - [facility] Work Phone: [facility] Comment on above: Bilateral carotid ar christine stenosis Start: 10-27-2024 End: 10-27-2024 Lydia Segura [facility] Work Phone: Start: 10-27-2024 End: 10-27-[address] Radha Khan MD Work Phone: -[facility] Start: 10-25-2024 End: 10-27-2024 Martina Rodriguezdhiraj SOCIOLOGY FACULTY MEMBER - CARRIAGE SETTER Work Phone: [facility] Comment on above: Bilateral carotid ar christine stenosis Start: 10-23-2024 Dr. Karina Benítez DO -Spe ech Therapy Work Phone: Start: 10-13-2024 End: 10-13-[address] Radha Khan MD Work Phone: [facility] Start: 10-13-2024 End: 10-13-2024 Dr. Karina Benítez DO -Occupational Therap y Work Phone: Start: 10-12-2024 End: 10-12-2024 Dr. Toni Vann MD -[facility] Work Phone: Start: 10-12-2024 End: 10-13-[address] Radha Khan MD Work Phone: -[facility] Start: 10-05-2024 Dr. Karina Benítez DO -Phy sical Therapy Work Phone: Start: 09-28-2024 Dr. Karina Benítez DO -[facility] Work Phone: Start: 09-28-2024 ambulatory Brandt Winter Facility:[facility] Start: 09-28-2024 Dr. Sarah Parada MD -[facility] Start: 09-27-2024 Dr. Karina Benítez DO -[place] [...] by physician [facility] Comment on above: Arrived Start: 09-24-2024 End: 09-24-2024 ambulatory [facility] Start: 09-24-2024 End: 09-24-2024 Subsequent hospital visit by physician Dick Nguyen MD Work Phone: [facility] Comment on above: ILD (interstitial lavonne ng disease) (Multi) Start: 09-24-2024 End: 09-24-2024 ambulatory [facility] Start: 09-16-2024 End: 09-16-2024 Patient encounter procedure Jessica Gerardo NP-Surinder -[facility] Work Phone: Start: 09-16-2024 End: 09-16-2024 Jessica SHELDON -[facility] Work Phone: Start: 09-16-2024 End: 09-16-[address] Radha Khan MD Work Phone: [facility] Work Phone: Start: 09-15-2024 End: 09-15-[address] Toni Vann MD -[facility] Work Phone: Start: 09-15-2024 End: 09-15-2024 Dr. Toni Vann MD -[facility] Work Phone: Start: 09-15-2024 End: 09-15-[address] Radha Khan MD Work Phone: [facility] Work Phone: Start: 08-28-2024 End: 08-28-2024 Office outpatient visit 40 minutes Rosalino Padron MD Work Phone: [facility] Comment on above: ILD (interstitial lavonne ng disease) (Multi) (Primary Dx); Chronic respiratory failure with hypoxia; KIANNA (obstructive sleep apnea); BMI 40.0-44.9, adult (Multi); Diastolic heart failure, unspecified HF chronicity Start: 08-28-2024 End: 08-28-2024 ambulatory [facility] Start: 08-18-2024 End: 08-18-2024 Subsequent hospital visit by physician Oni Rousseau Pft Rm 2 [facility] Comment on above: ILD (interstitial lavonne ng disease) (Multi) Start: 08-18-2024 End: 08-18-2024 ambulatory [facility] Start: 08-17-2024 End: 08-17-[address] Toni Vann MD -[facility] Work Phone: Start: 08-17-2024 End: 08-17-2024 Dr. Toin Vann MD -[facility] Work Phone: Start: 08-17-2024 End: 08-17-[address] Radha Khan MD Work Phone: [facility] Work Phone: Start: 08-12-2024 End: 08-12-2024 Patient encounter procedure Sumanth Hanna MD -[facility] Work Phone: Start: 08-12-2024 End: 08-12-2024 Sumanth Hanna MD -[facility] Work Phone: Start: 08-12-2024 End: 08-12-[address] Radha Khan MD Work Phone: [facility] Work Phone: Start: 08-12-2024 End: 08-12-2024 ambulatory Khadarjurgen Pickeringмария Facility:[facility] Start: 08-07-2024 End: 08-07-2024 Office outpatient visit 40 minutes Rosalino Padron MD Work Phone: [facility] Comment on above: ILD (interstitial lavonne ng disease) (Multi) (Primary Dx); Chronic respiratory failure with hypoxia; KIANNA (obstructive sleep apnea); BMI 40.0-44.9, adult (Multi); Diastolic heart failure, unspecified HF chronicity Start: 08-07-2024 End: 08-07-2024 ambulatory [facility] Start: 08-06-2024 End: 08-06-[address] Toni Vann MD -[facility] Work Phone: Start: 08-06-2024 End: 08-06-2024 Dr. Toni Vann MD -[facility] Work Phone: Start: 08-06-2024 End: 08-06-2024 ambulatory Radha Khan Facility:[facility] Start: 07-24-2024 End: 07-24-2024 Subsequent hospital visit by physician Clifford kamara Pft Room [facility] Comment on above: ILD (interstitial lavonne ng disease) (Multi) Start: 07-24-2024 End: 07-24-2024 ambulatory [facility] Start: 07-23-2024 End: 07-23-2024 Subsequent hospital visit by physician Michael Stallings [facility] Comment on above: Pulmonary hypertensi on (Multi) Start: 07-23-2024 End: 07-23-2024 ambulatory [facility] Start: 07-20-2024 End: 07-20-2024 Subsequent hospital visit by physician Lorenza [id number] Ct [facility] Comment on above: ILD (interstitial lavonne ng disease) (Multi) Start: 07-20-2024 End: 07-20-2024 ambulatory [facility] Start: 07-06-2024 End: 07-06-[address] Toni Vann MD -[facility] Work Phone: Start: 07-06-2024 End: 07-06-2024 Dr. Tnoi Vann MD -[facility] Work Phone: Start: 07-06-2024 End: 07-06-2024 ambulatory Radha S Jolliff Facility:[facility] Start: 06-26-2024 End: 06-26-2024 Office outpatient new 60 minutes Rosalino Padron MD Work Phone: [facility] Comment on above: ILD (interstitial lavonne ng disease) (Multi) (Primary Dx); Pulmonary hypertension (Multi); Chronic respiratory failure with hypoxia (Multi) Start: 06-26-2024 End: 06-26-2024 ambulatory [facility] Start: 06-10-2024 End: 06-10-2024 Patient encounter procedure SAV Rojas -[facility] Work Phone: Start: 06-10-2024 End: 06-10-2024 [facility] Work Phone: Start: 06-10-2024 End: 06-10-2024 ambulatory Radha S Jolliff Facility[facility] Start: 06-04-2024 End: 06-04-[address] Toni Vann MD -[facility] Work Phone: Start: 06-04-2024 End: 06-04-2024 Dr. Toni Vann MD -[facility] Work Phone: Start: 06-04-2024 End: 06-04-2024 ambulatory Radha S Jolliff Facility:[facility] Start: 06-02-2024 End: 06-02-2024 Patient encounter procedure BUTANE COMPRESSOR OPERATOR Chen Bob -Sleep Lab Work Phone: Start: 06-02-2024 End: 06-02-2024 BUTANE COMPRESSOR OPERATOR Chen Bob -Sleep Lab Work Phone: Start: 06-02-2024 End: 06-02-2024 ambulatory Radha S Jolliff Facility:[facility] Start: 05-28-2024 Non-patient / Non-visit Dr. Jemima MCRAE -[facility] Work Phone: Start: 05-28-2024 ambulatory Radha S Jolliff Facility: [facility] Start: 05-28-2024 Registered Referred Lydia GRIFFITHS -Cardiovascular Services Work Phone: Start: 05-28-2024 Dr. Sumanth Hanna MD -[facility] Work Phone: Start: 05-21-2024 End: 05-21-2024 Patient encounter procedure Lydia GRIFFITHS -Laboratory Work Phone: Start: 05-21-2024 End: 05-21-2024 Lydia GRIFFITHS -Laboratory Work Phone: Start: 05-21-2024 End: 05-21-2024 Patient encounter procedure Lydia GRIFFITHS -[facility] Work Phone: Start: 05-21-2024 End: 05-21-2024 Lydia GRIFFITHS -[facility] Work Phone: Start: 05-21-2024 End: 05-21-2024 ambulatory Radha S Jolliff Facility:[facility] Start: 05-21-2024 End: 05-21-2024 ambulatory Radha S Jolliff Facility:[facility] Start: 05-08-2024 End: 05-08-2024 Telephone encounter Oziel Culp MD Work Phone: [facility] Start: 05-07-2024 End: 05-08-2024 Orders Only Mey Loya SOCIOLOGY FACULTY MEMBER - CARRIAGE SETTER Work Phone: [facility] Comment on above: Bilateral carotid ar christine stenosis (Primary Dx) Start: 05-06-2024 End: 05-06-2024 Subsequent hospital visit by physician [facility] Comment on above: Arrived Ischemic cerebrovasc ular accident (CVA) (HCC); Bilateral carotid artery stenosis Start: 05-06-2024 End: 05-06-2024 ambulatory MEY LOYA [facility] Start: 05-05-2024 End: 05-05-2024 ambulatory Radha S Jolliff [facility] Start: 05-05-2024 End: 05-05-2024 Dr. Rito Lundberg MD -[facility] Work Phone: Start: 05-01-2024 End: 05-01-2024 SAV Rojas -[facility] [facility] Work Phone: Start: 05-01-2024 End: 05-01-2024 ambulatory Radha S Jolliff [facility] Start: 04-30-2024 End: 04-30-2024 Dr. Ochoa Dobbs MD -[place] [facility] Work Phone: Start: 04-30-2024 End: 04-30-2024 ambulatory Radha S Jolliff [facility] Start: 04-30-2024 End: 04-30-2024 Dr. Toni Vann MD -[facility] Work Phone: Start: 04-30-2024 End: 04-30-2024 ambulatory Radha S Jolliff [facility] Start: 04-27-2024 End: 04-27-2024 Office outpatient visit 25 minutes Suzy Jauregui MD Work Phone: [facility] [place] Comment on above: Cerebrovascular acci dent (CVA), unspecified mechanism (HCC) (Primary Dx); Bilateral carotid artery stenosis Start: 04-27-2024 End: 04-27-2024 ambulatory SUZY JAUREGUI [facility] Start: 04-25-2024 Dr. Ochoa Johnson DO -[facility] In[facility]icians Work Phone: Start: 04-24-2024 End: 04-25-2024 ambulatory Edmund Quispeugh Facility:[facility] Start: 04-24-2024 End: 04-25-2024 Dr. Ochoa Johnson DO -Progressive [facility] it Work Phone: Start: 04-24-2024 End: 04-24-2024 Dr. Radha Khan MD -Laboratory Maged Harvey Start: 04-24-2024 End: 04-24-2024 ambulatory Radha S Jolliff Facility:[facility] Start: 04-23-2024 End: 04-23-2024 Telephone encounter Jessica Clifton RN [facility] Special Procedur es Start: 04-22-2024 End: 04-22-2024 BUTANE COMPRESSOR OPERATOR Chen Rojas -[facility] [facility] Work Phone: Start: 04-22-2024 End: 04-22-2024 ambulatory Radha S Jolliff [facility] Start: 04-20-2024 ambulatory Radha S Jolliff [facility]: [facility] Start: 04-16-2024 End: 04-16-2024 Jessica Gerardo BUTANE COMPRESSOR OPERATOR-C -[facility] [facility] Work Phone: Start: 04-16-2024 End: 04-16-2024 ambulatory Radha S Jolliff Facility:[facility] Start: 04-15-2024 Dr. Cuco Soler MD -[facility] Work Phone: Start: 04-14-2024 ambulatory Radha S Jolliff [facility]: [facility] Start: 04-13-2024 ambulatory Radha S Jolliff [facility]: [facility] Start: 04-12-2024 ambulatory Radha S Jolliff [facility]: [facility] Start: 04-12-2024 End: 04-15-2024 Evaluation and management of inpatient Cuco Soler Facility:[facility] Start: 04-12-2024 End: 04-15-2024 Dr. Cuco Soler MD -Progressive Care U nit Work Phone: Start: 04-09-2024 End: 04-09-2024 ambulatory Radha S Jolliff Facility:[facility] Start: 04-06-2024 End: 04-06-2024 Subsequent hospital visit by physician Suzy Jauregui MD [facility] Phone[facility] Comment on above: Bilateral carotid ar christine occlusion Start: 04-06-2024 End: 04-06-2024 ambulatory SUZY JAUREGUI [facility] Start: 03-30-2024 End: 03-30-2024 ambulatory Radha S Jolliff Facility:[facility] Start: 03-30-2024 ambulatory Radha S Jolliff [facility]: [facility] Start: 03-30-2024 End: 03-30-2024 ambulatory Radha S Jolliff Facility:[facility] Start: 03-27-2024 ambulatory Radha S Jolliff Facility: [facility] Start: 03-27-2024 End: 03-27-2024 ambulatory Radha S Jolliff Facility:[facility] Start: 03-23-2024 End: 03-23-2024 ambulatory Radha S Jolliff Facility:[facility] Start: 03-13-2024 End: 03-13-2024 ambulatory Radha S Jolliff Facility:[facility] Start: 03-03-2024 ambulatory Radha S Jolliff Facility: [facility] Start: 03-02-2024 ambulatory Radha S Jolliff Facility: [facility] Start: 03-02-2024 End: 03-04-2024 Evaluation and management of inpatient Radha S Jolliff Facility:[facility] Start: 02-26-2024 End: 02-26-2024 Emergency department patient visit Radha S Jolliff Facility:[facility] Start: 02-21-2024 ambulatory Radha S Jolliff Facility: [facility] Start: 02-20-2024 End: 02-20-2024 ambulatory Radha S Jolliff Facility:[facility] Start: 02-18-2024 End: 02-18-2024 ambulatory Radha S Jolliff Facility:[facility] Start: 02-13-2024 End: 02-13-2024 Orders Only Mey Loya SOCIOLOGY FACULTY MEMBER - [employer]TER Work Phone: [facility] Neurology Comment on above: Ischemic cerebrovasc ular accident (CVA) (HCC) (Primary Dx); Bilateral carotid artery stenosis Start: 02-07-2024 End: 02-07-2024 ambulatory Radha S Jolliff Facility:[facility] Start: 02-06-2024 End: 03-04-2024 Telephone encounter Oziel Culp MD Work Phone: [facility] Clinical Communication Start: 02-06-2024 End: 02-06-2024 Subsequent hospital visit by physician Oziel Culp MD Work Phone: [facility] [address] Comment on above: Arrived Start: 02-06-2024 End: 02-06-2024 ambulatory [facility] Start: 02-06-2024 End: 02-06-2024 ambulatory Radha Khan Facility:[facility] Start: 02-05-2024 End: 02-05-2024 ambulatory [facility] Start: 02-03-2024 End: 02-03-2024 ambulatory Radha Khan Facility:[facility] Start: 01-22-2024 End: 01-22-2024 ambulatory [facility] Start: 01-16-2024 End: 01-16-2024 Orders Only Mey Loya SOCIOLOGY FACULTY MEMBER - [employer] SETTER Work Phone: [facility] Neurology Comment on above: Chronic kidney disea se, unspecified CKD stage (Primary Dx) Start: 01-06-2024 End: 01-06-2024 Office outpatient visit 25 minutes Oziel Culp MD Work Phone: [facility] Neurology Comment on above: Bilateral carotid ar christine stenosis (Primary Dx); Ischemic cerebrovascular accident (CVA) (HCC) Start: 10-03-2023 End: 10-05-2023 Evaluation and management of inpatient Joe Rocha MD Work Phone: [facility] PCU 4W Comment on above: Cerebrovascular acci dent (CVA), unspecified mechanism (HCC) (Primary Dx) Start: 10-01-2023 End: 10-03-2023 Evaluation and management of inpatient CHITO BUENROSTRO SOCIOLOGY FACULTY MEMBER-CARRIAGE SETTER [facility] Start: 08-05-2023 End: 08-05-[address] Radha Khan Work Phone: [facility] Work Phone: Start: 08-05-2023 End: 08-05-[address] Radha Khan Work Phone: [facility]-Laboratory Work Phone: Start: 07-17-2023 End: 07-17-[address] Radha Khan Work Phone: [facility] Vascular Surgery Work Phone: Start: 07-03-2023 End: 07-03-[address] Radha Khan Work Phone: [facility] Work Phone: Start: 06-06-2023 End: 06-06-[address] Radha Khan Work Phone: [facility] Work Phone: Start: 06-06-2023 End: 06-06-[address] Radha Khan Work Phone: [facility] Work Phone: Start: 05-21-2023 End: 05-21-[address] Radha Khan Work Phone: [facility] Work Phone: Start: 05-20-2023 End: 05-20-[address] Radha Khan Work Phone: [facility] Endocrinology Work Phone: Start: 05-01-2023 Non-patient / Non-visit Dr. Armen Khan Work Phone: [facility] Start: 05-01-2023 End: 05-01-[address] Radha Khan Work Phone: [facility] Work Phone: Start: 05-01-2023 End: 05-01-[address] Radha Khan Work Phone: [facility]-Cardiovascula r Services Work Phone: Start: 04-25-2023 End: 04-25-[address] Radha Khan Work Phone: [facility] Work Phone: Start: 04-25-2023 End: 04-25-[address] Radha Khan Work Phone: [facility]-Laboratory Work Phone: Start: 04-25-2023 End: 04-25-[address] Radha Khan Work Phone: [facility] Work Phone: Start: 03-15-2023 Non-patient / Non-visit Dr. Armen Khan Work Phone: [facility] Start: 03-15-2023 End: 03-15-[address] Radha Khan Work Phone: [facility] Work Phone: Start: 03-15-2023 End: 03-15-[address] Radha Khan Work Phone: [facility] Work Phone: Start: 03-12-2023 End: 03-12-[address] Radha Khan Work Phone: [facility] Neurology Work Phone: Start: 02-28-2023 End: 02-28-[address] Radha Khan Work Phone: [facility] Work Phone: Start: 02-28-2023 End: 02-28-[address] [facility] Work Phone: Start: 02-28-2023 End: 02-28-[address] Radha Khan Work Phone: [facility] Work Phone: Start: 02-27-2023 End: 02-27-[address] Radha Khan Work Phone: [facility] Work Phone: Start: 02-26-2023 End: 02-26-[address] Radha Khan Work Phone: [facility] Work Phone: Start: 02-26-2023 End: 02-26-[address] Radha Khan Work Phone: [facility] [place] Work Phone: Start: 02-18-2023 End: 02-18-2023 Admission to same day surgery center Dr. Radha Khan Work Phone: [facility]-Surgical Day Care Start: 02-18-2023 End: 02-18-[address] Radha Khan Work Phone: [facility] Work Phone: Start: 02-04-2023 End: 02-04-[address] Radha Khan Work Phone: [facility] Endocrinology Work Phone: Start: 01-15-2023 End: 01-15-[address] Radha Khan Work Phone: [facility] Work Phone: Start: 01-15-2023 End: 01-15-[address] Radha Khan Work Phone: [facility] [place] Work Phone: Start: 01-07-2023 End: 01-07-[address] Radha Khan Work Phone: [facility] Work Phone: Start: 01-07-2023 End: 01-07-[address] Radha Khan Work Phone: [facility] Work Phone: Start: 01-01-2023 End: 01-01-[address] Radha Khan Work Phone: [facility] Work Phone: Start: 01-01-2023 End: 01-01-[address] Radha Khan [facility] Work Phone: Start: 12-31-2022 End: 12-31-[address] Radha Khan Work Phone: [facility] [place] Work Phone: Start: 12-10-2022 End: 12-10-[address] Radha Khan Work Phone: [facility] Endocrinology Work Phone: Start: 11-09-2022 End: 11-09-[address] Radha Khan Work Phone: [facility] Work Phone: Start: 11-09-2022 End: 11-09-[address] Radha Khan Work Phone: [facility] Work Phone: Start: 11-07-2022 End: 11-07-[address] Radha Khan Work Phone: [facility] Work Phone: Start: 11-07-2022 End: 11-07-[address] Radha Khan Work Phone: [facility] Work Phone: Start: 10-31-2022 End: 10-31-[address] Radha Khan Work Phone: [facility] Work Phone: Start: 10-31-2022 End: 10-31-[address] Radha Khan Work Phone: [facility] Start: 10-12-2022 End: 10-12-[address] Radha Khan Work Phone: [facility] Work Phone: Start: 10-12-2022 End: 10-12-[address] Radha Khan Work Phone: [facility] Work Phone: Start: 10-08-2022 End: 10-08-[address] Radha Khan Work Phone: [facility] Work Phone: Start: 10-01-2022 Non-patient / Non-visit Dr. Armen Khan Work Phone: [facility] Start: 10-01-2022 End: 10-01-[address] Radha Khan Work Phone: [facility] Work Phone: Start: 10-01-2022 End: 10-01-[address] Radha Khan [facility] Work Phone: Start: 09-03-2022 End: 09-03-[address] Radha Khan Work Phone: [facility] Endocrinology Work Phone: Start: 08-03-2022 Non-patient / Non-visit Dr. Armen Khan Work Phone: [facility] Start: 08-02-2022 Non-patient / Non-visit Dr. Armen Khan Work Phone: [facility] Start: 08-01-2022 End: 08-03-2022 Evaluation and management of inpatient Dr. Radha Khan Work Phone: [facility]-Progressive Care Unit Start: 08-01-2022 End: 08-03-[address] Radha Khan Work Phone: [facility] Work Phone: Start: 07-27-2022 End: 07-27-[address] Radha Khan Work Phone: [facility] Work Phone: Start: 07-27-2022 End: 07-27-[address] Radha Khan Work Phone: [facility] Start: 06-26-2022 End: 06-26-[address] Radha Khan Work Phone: [facility] Work Phone: Start: 06-26-2022 End: 06-26-[address] Radha Khan Work Phone: [facility] Start: 06-18-2022 End: 06-18-[address] Radha Khan Work Phone: [facility] Endocrinology Start: 06-12-2022 End: 06-12-[address] Radha Khan Work Phone: [facility]-Pulmonary Medicine [facility] Start: 05-21-2022 End: 05-21-[address] Radha Khan Work Phone: [facility] Start: 05-18-2022 End: 05-18-[address] Radha Khan Work Phone: [facility] Start: 05-09-2022 End: 05-09-2022 Admission to same day surgery center Dr. Radha Khan Work Phone: [facility]/Special Procedures Start: 05-09-2022 End: 05-09-[address] Radha Khan Work Phone: [facility] Work Phone: Start: 05-03-[address] Barney Khan Work Phone: [facility] Start: 05-03-[address] Toni Vann MD Work Phone: [facility] Start: 05-03-2022 End: 05-03-[address] Radha Khan Work Phone: [facility] Start: 04-27-2022 End: 04-27-[address] Radha Khan Work Phone: [facility] Work Phone: Start: 04-27-2022 End: 04-27-[address] Radha Khan Work Phone: [facility] Start: 04-17-2022 End: 04-17-[address] Radha Khan Work Phone: [facility] Work Phone: Start: 04-17-2022 End: 04-17-[address] Radha Khan Work Phone: [facility] Start: 03-12-2022 End: 03-12-[address] Radha Khan Work Phone: [facility] Endocrinology Start: 02-19-2022 End: 02-19-[address] Radha Khan Work Phone: [facility] Start: 02-17-2022 Non-patient / Non-visit Dr. Armen Khan Work Phone: [facility] Start: 02-16-2022 End: 02-16-[address] Radha Khan Work Phone: [facility] Work Phone: Start: 02-16-2022 End: 02-16-[address] Radha Khan Work Phone: [facility]-Pulmonary Services/Neurology Start: 02-12-2022 End: 02-12-[address] Radha Khan [facility] Phone: [facility] Start: 01-15-2022 End: 01-15-[address] Radha Khan Work Phone: [facility] Endocrinology Start: 11-13-2021 End: 11-13-[address] Radha Khan Work Phone: [facility] Start: 09-19-2021 End: 09-19-[address] Radha Khan Work Phone: [facility]-Pulmonary Services/Neurology Start: 09-07-2021 End: 09-07-[address] Radha Khan Work Phone: [facility] Start: 09-04-2021 End: 09-04-2021 Emergency department patient visit Dr. Radha Khan Work Phone: [facility]-Emergency Department Start: 08-14-2021 Non-patient / Non-visit Dr. Armen Khan Work Phone: [facility] Start: 08-14-2021 End: 08-14-[address] Radha Khan Work Phone: [facility]-Cardiovascula r Services Start: 08-10-2021 End: 08-10-[address] Radha Khan Work Phone: [facility] Endocrinology Start: 08-09-2021 End: 08-09-[address] Radha Khan Work Phone: [facility]-Sleep Lab Start: 07-16-2021 End: 07-16-2021 Emergency department patient visit Dr. Radha Khan Work Phone: [facility]-Emergency Department Start: 07-13-2021 End: 07-13-[address] Radha Khan Work Phone: [facility]-Pulmonary Medicine [facility] Start: 07-12-2021 End: 07-12-[address] Radha Khan Work Phone: [facility]-Laboratory Start: 07-12-2021 End: 07-12-[address] Radha Khan Work Phone: [facility] Start: 06-29-2021 End: 06-29-[address] Radha Khan Work Phone: [facility] Endocrinology Start: 06-20-2021 Non-patient / Non-visit Dr. Armen Khan Work Phone: [facility] Start: 06-19-2021 Non-patient / Non-visit Dr. Armen Khan Work Phone: [facility] Start: 06-19-2021 Non-patient / Non-visit Dr. Armne Khan Work Phone: [facility] Start: 06-19-2021 End: 06-20-2021 Evaluation and management of inpatient Dr. Radha Khan [facility] Phone[facility] Start: 06-15-2021 Non-patient / Non-visit Dr. Armen Khan Work Phone: [facility] Start: 06-15-2021 End: 06-15-[address] Radha Khan [facility] Phone[facility] Start: 06-02-2021 End: 06-02-[address] Radha Khan [facility] Phone[facility] Start: 06-02-2021 Non-patient / Non-visit Dr. Armen Khan Work Phone: [facility] Start: 06-01-2021 End: 06-01-[address] Radha Khan Work Phone: [facility] [place] Start: 06-01-2021 End: 06-01-[address] Radha Khan Work Phone: [facility] Endocrinology Start: 05-30-2021 End: 05-30-[address] Radha Khan Work Phone: [facility] Start: 12-27-2010 End: 12-27-2010 Patient encounter procedure Karlos Aquino Work Phone: [facility] Start: 12-27-2010 Results Only Karlos lehman Work Phone: [facility] Procedures Date Procedure Procedure Detail Performing Clinician Start: 01-15-2025 PULMONARY STRESS KARLY T (6 MIN. WALK) Rosalino Padron MD Work Phone: Start: 01-15-2025 Pulmonary stress testing Rosalino Padron MD Work Phone: Start: 01-15-2025 DLCO / DIFFUSION CAPACITY Rosalino Padron MD Work Phone: Start: 12-23-2024 Urine microscopy: red cells Dr. Toni Vann MD Work Phone: Start: 12-23-2024 Urnls dip stick/tabl et reagent auto microscopy Dr. Toni Vann MD Work Phone: Start: 12-23-2024 Blood count smear mc rscp w/mnl difrntl wbc count Dr. Toni Vann MD Work Phone: Start: 12-23-2024 Mean corpuscular hem oglobin concentration determination Dr. Toni Vann MD Work Phone: Start: 12-23-[address] Ra cassy Vann MD Work Phone: Start: 12-23-2024 Nucleated red blood cell count procedure Dr. Toni Vann MD Work Phone: Start: 12-23-2024 Platelet mean volume determination Dr. Toni Vann MD Work Phone: Start: 12-23-2024 CT of head without contrast Dr. Toni Vann MD Work Phone: Start: 12-23-[address] Toni Vann MD Work Phone: Start: 12-23-[address] Radha Vann MD Work Phone: Start: 12-23-2024 Dr. Jacek Vann MD Work Phone: Start: 12-09-2024 Blood count smear mc rscp w/mnl difrntl wbc count Dr. Radha Khan MD Work Phone: Start: 12-09-2024 Mean corpuscular hem oglobin concentration determination Dr. Radha Khan MD Work Phone: Start: 12-09-[address] Ra cassy Vann MD Work Phone: Start: 12-09-2024 Nucleated red [...] Radha Khan MD Work Phone: Start: 11-28-[address] Ra cassy Vann MD Work Phone: Start: 11-28-2024 Nucleated red blood cell count procedure Dr. Radha Khan MD Work Phone: Start: 11-28-2024 Platelet mean volume determination Dr. Radha Khan MD Work Phone: Start: 11-26-[address] Armen Khan MD Work Phone: Start: 11-26-[address] Toni Vann MD Work Phone: Start: 11-26-2024 Blood culture [...] Work Phone: Start: 11-26-2024 Blood count smear rscp w/mnl difrntl wbc [...] Work Phone: Start: 11-03-2024 Blood count smear rscp w/mnl difrntl wbc [...] Radha Khan MD Work Phone: Start: 10-13-[address] Ra cassy Vann MD Work Phone: Start: 10-13-2024 Nucleated red blood cell count procedure Dr. Radha Khan MD Work Phone: Start: 10-13-2024 Platelet mean volume determination Dr. Radha Khan MD Work Phone: Start: 10-13-2024 Total cholesterol:HD L ratio measurement Dr. Radha Khan MD Work Phone: Start: 10-13-[address] Toni Vann MD Work Phone: Start: 09-27-2024 MRI of brain without contrast Dr. Radha Khan MD Work Phone: Start: 09-27-2024 Blood count smear mc rscp w/mnl difrntl wbc count Dr. Radha Khan MD Work Phone: Start: 09-27-[address] Radha Khan MD Work Phone: Start: 09-27-2024 Mean corpuscular hem oglobin concentration determination Dr. Radha Khan MD Work Phone: Start: 09-27-[address] Ra casys Vann MD Work Phone: Start: 09-27-2024 Nucleated red blood cell count procedure Dr. Radha Khan MD Work Phone: Start: 09-27-2024 Platelet mean volume determination Dr. Radha Khan MD Work Phone: Start: 09-27-2024 Total cholesterol:HD L ratio measurement Dr. Radha Khan MD Work Phone: Start: 09-27-[address] Toni Vann MD Work Phone: Start: 09-26-2024 CT angiography [...] Dick Nguyen MD Work Phone: Start: 09-24-2024 End: 09-24-2024 Smr prim src gram/giemsa stain bct fungi/cell Dick Nguyen MD Work Phone: Start: 09-24-2024 End: 09-24-2024 Cytp slctv cell enhancement interpj xcpt c/v Dick Nguyen MD Work Phone: Start: 09-24-2024 Cell count and Diffe rential panel - Body fluid Dick Nguyen MD Work Phone: Start: 09-24-2024 Cell count misc body fluids w/differential count Dick Nguyen MD Work Phone: Start: 09-24-2024 Cell count panel - B francie fluid Dick Nguyen MD Work Phone: Start: 09-24-2024 T-cell subsets CD4 a nd CD8 panel - Blood Dick Nguyen MD Work Phone: Start: 08-18-2024 [...] Work Phone: Start: 05-21-2024 Anion gap measurement D abhinav Khan MD Work Phone: Start: 05-21-2024 BUN/Creatinine [...] Bilateral Views W contrast IA 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 Radha Khan MD Work Phone: Start: 05-05-2024 Blood disorder - ini tial assessment Dr. Radha Khan MD Work Phone: Start: 05-05-[address] Jacek Vann MD Work Phone: Start: 05-05-2024 Ferritin measurement [...] MRI of brain without contrast Dr. Radha hKan MD Work Phone: Start: 04-25-2024 Albumin/Globulin ratio [...] Phone: Start: 12-27-2010 CONVERTED SURGICAL PATHOLOGY Karlos Aquion Work Phone: Plan of Treatment Date Care Activity Detail Author Start: 10-03-2028 Lipid panel Lipid Panel [facility] Start: 09-23-2025 Creatinine measurement Creatinine Level [facility] Start: 09-23-2025 Potassium measurement Potassium Level [facility] Start: 07-23-2025 Echocardiography Echocardiogram [facility] Start: 05-06-2025 Creatinine measurement Creatinine Level [facility] Start: 05-06-2025 Diabetes: Estimated Glomerular Filtration Rate for Kidney Health Diabetes: Estimated Glomerular Filtration Rate for Kidney Health [facility] Start: 05-06-2025 Potassium measurement Potassium Level [facility] Start: 05-03-2025 Reticulocyte count [facility] Start: 04-17-2025 End: 01-15-[address] chest high resolution Imaging Routine ILD (interstitial lung disease) (Multi) Expected: 04/17/2025, Expires: 01/15/2026 [facility] Service Area Work Phone: Comment on above: Expected: 04/17/2025, Expires: Start: 03-19-2025 End: 03-19-2025 Patient encounter procedure 03/19/2025 2:30 PM EST Office Visit [facility] [id number] [address] [place] [facility] [address] [place] [id number] [place] [address] [place] [address] [facility] Start: 01-18-2025 End: 01-18-2026 Creatinine [Mass/volume] in Serum or Plasma Creatinine, Serum Lab Routine Bilateral carotid artery stenosis Expected: 01/18/2025 (Approximate), Expires: 01/18/2026 [facility] [employer] Work Phone: Comment on above: Expected: 01/18/2025 (Approximate), Expi res: 01/18/2026 Start: 01-18-2025 End: 01-18-2026 CTA Head vessels WO and W contrast IV CTA head angio w and wo IV contrast Imaging Routine Bilateral carotid artery stenosis Expected: 01/18/2025, Expires: 01/18/2026 [facility] Comment on above: Expected: 01/18/2025, Expires: Start: 01-18-2025 End: 01-18-2026 Electroencephalogram EEG Neurology Routine Transient alteration of awareness Expected: 01/18/2025 (Approximate), Expires: 01/18/2026 [facility] Comment on above: Expected: 01/18/2025 (Approximate), Expi res: 01/18/2026 Start: 01-18-2025 End: 01-18-2025 Patient encounter procedure [facility] Start: 01-15-2025 End: 01-15-2025 Patient encounter procedure [facility] Start: 12-23-2024 [facility] Start: 12-23-2024 CT of head without contrast [facility] Start: 12-23-2024 Urine culture [facility] Start: 12-23-2024 End: 12-24-2024 -Emergency Department Work Phone: Start: 12-17-2024 Iv infusion hydration each additional hour [facility] Start: 12-17-2024 End: 12-29-2024 -W[facility] Healing Center Work Phone: Start: 12-10-2024 Intravenous infusion [facility] Start: 12-09-2024 End: 12-09-2024 Patient encounter procedure [facility] Start: 12-04-2024 End: 12-04-2024 Patient encounter procedure 12/04/2024 1:00 PM EDT Office Visit [facility] [address] [facility] [address] [place] [address] [place] [address] [place] [address] [facility] Start: 11-30-2024 Influenza vaccination Influenza Vaccine (#1) [facility] Start: 11-28-2024 Patient discharge [facility] Start: 11-27-2024 [facility] Start: 11-26-2024 Blood culture [facility] Start: 11-26-2024 Urine culture [facility] Start: 11-26-2024 Following clinical pathway protocol [facility] Start: 11-26-2024 Assessment of risk of venous thromboembolism [facility] Start: 11-26-2024 Care regimes management [facility] Start: 11-26-2024 Catheterization of vein [facility] Start: 11-26-2024 End: 11-26-2024 Consultation for treatment [facility] Start: 11-26-2024 Inhalation therapy procedure [facility] Start: 11-26-2024 Insertion of catheter into peripheral vein [facility] Start: 11-26-2024 Measuring intake and output [facility] Start: 11-26-2024 Notification of physician [facility] Start: 11-26-2024 Oxygen therapy [facility] Start: 11-26-2024 Patient referral to dietitian [facility] Start: 11-26-2024 Providing care according to standard [facility] Start: 11-26-2024 Provision of activity privileges [facility] Start: 11-26-2024 Referral for physical therapy [facility] Start: 11-26-2024 Referral to occupational therapist [facility] Start: 11-26-2024 Referral to service [facility] Start: 11-26-2024 End: 11-26-2024 [facility] Start: 11-26-2024 Hospital admission, emergency, from emergency room, medical nature [facility] Start: 11-26-2024 Verification routine [facility] Start: 11-26-2024 Admission procedure [facility] Start: 11-26-2024 End: 11-26-2024 [facility] Start: 11-26-2024 [facility] Start: 11-13-2024 End: 11-13-2025 DLCO / Diffusion Capacity DLCO / Diffusion Capacity PFT Routine ILD (interstitial lung disease) (Multi) Expected: 11/13/2024 (Approximate), Expires: 11/13/2025 [facility] Work Phone: Comment on above: Expected: 11/13/2024 (Approximate), Expi res: 11/13/2025 Start: 11-13-2024 End: 11-13-2025 Pulmonary Stress Test (6 Min. Walk) Pulmonary Stress Test (6 Min. Walk) PFT Routine ILD (interstitial lung disease) (Multi) Expected: 11/13/2024 (Approximate), Expires: 11/13/2025 [facility] Work Phone: Comment on above: Expected: 11/13/2024 (Approximate), Expi res: 11/13/2025 Start: 11-13-2024 End: 11-13-2025 Spirometry Pre/Post Bronchodilator Spirometry Pre/Post Bronchodilator PFT Routine ILD (interstitial lung disease) (Multi) Expected: 11/13/2024 (Approximate), Expires: 11/13/2025 [facility] Service Area Work Phone: Comment on above: Expected: 11/13/2024 (Approximate), Expi res: 11/13/2025 Start: 11-03-2024 [facility] Start: 10-30-2024 Influenza vaccination Influenza Vaccine (#1) [facility] Start: 10-04-2024 Creatinine measurement Creatinine Level [facility] Start: 10-04-2024 Diabetes: Estimated Glomerular Filtration Rate for Kidney Health Diabetes: Estimated Glomerular Filtration Rate for Kidney Health [facility] Start: 10-04-2024 Potassium measurement Potassium Level [facility] Start: 10-03-2024 Diabetes mellitus screening Diabetes Screening [facility] Start: 10-03-2024 Hemoglobin A1c measurement Diabetes: Hemoglobin A1C [facility] Start: 10-03-2024 Lipid panel Lipid Panel [facility] Start: 09-28-2024 Patient discharge [facility] Start: 09-27-2024 [facility] Start: 09-27-2024 Care planning and problem solving actions [facility] Start: 09-26-2024 Application of intermittent pneumatic compression device [facility] Start: 09-26-2024 Admission procedure [facility] Start: 09-26-2024 Care planning and problem solving actions [facility] Start: 09-26-2024 Vital signs measurements [facility] Start: 09-26-2024 Aspiration precautions [facility] Start: 09-26-2024 Cardiac monitoring [facility] Start: 09-26-2024 Catheterization of vein [facility] Start: 09-26-2024 Consultation [facility] Start: 09-26-2024 Continuous pulse oximetry [facility] Start: 09-26-2024 Elevation of head of bed [facility] Start: 09-26-2024 Exercises [facility] Start: 09-26-2024 Oxygen therapy [facility] Start: 09-26-2024 Patient referral to dietitian [facility] Start: 09-26-2024 Referral for physical therapy [facility] Start: 09-26-2024 Referral to occupational therapist [facility] Start: 09-26-2024 Referral to service [facility] Start: 09-26-2024 Speech therapy assessment [facility] Start: 09-26-2024 Telemedicine consultation with patient [facility] Start: 09-26-2024 Tobacco use cessation education [facility] Start: 09-26-2024 End: 09-26-2024 [facility] Start: 09-26-2024 Assessment of risk of venous thromboembolism [facility] Start: 09-26-2024 Care regimes management [facility] Start: 09-26-2024 Insertion of catheter into peripheral vein [facility] Start: 09-26-2024 Measuring intake and output [facility] Start: 09-26-2024 End: 09-26-2024 Notification of physician [facility] Start: 09-26-2024 Providing care according to standard [facility] Start: 09-26-2024 Provision of activity privileges [facility] Start: 09-26-2024 Following clinical pathway protocol [facility] Start: 09-26-2024 Admission procedure [facility] Start: 09-26-2024 [facility] Start: 09-26-2024 CT angiography of head and neck STROKE CTA Head AND Neck W/Con [facility] Start: 09-26-2024 CTA Head vessels and Neck vessels W contrast IV [facility] Start: 09-26-2024 Hospital admission, emergency, from emergency room, medical nature [facility] Start: 09-26-2024 Oxygen therapy [facility] Start: 09-26-2024 End: 09-26-2024 [facility] Start: 09-26-2024 Patient referral to dietitian [facility] Start: 08-28-2024 End: 08-28-2025 DLCO / Diffusion Capacity DLCO / Diffusion Capacity PFT Routine ILD (interstitial lung disease) (Multi) Chronic respiratory failure with hypoxia Expected: 08/28/2024 (Approximate), Expires: 08/28/2025 [facility] Work Phone: Comment on above: Expected: 08/28/2024 (Approximate), Expi res: 08/28/2025 Start: 08-28-2024 End: 08-28-2025 Pulmonary Stress Test (6 Min. Walk) Pulmonary Stress Test (6 Min. Walk) PFT Routine ILD (interstitial lung disease) (Multi) Chronic respiratory failure with hypoxia Expected: 08/28/2024 (Approximate), Expires: 08/28/2025 [facility] Work Phone: Comment on above: Expected: 08/28/2024 (Approximate), Expi res: 08/28/2025 Start: 08-28-2024 End: 08-28-2025 Spirometry Pre/Post Bronchodilator Spirometry Pre/Post Bronchodilator PFT Routine ILD (interstitial lung disease) (Multi) Chronic respiratory failure with hypoxia Expected: 08/28/2024 (Approximate), Expires: 08/28/2025 [facility] Service Area Work Phone: Comment on above: Expected: 08/28/2024 (Approximate), Expi res: 08/28/2025 Start: 08-28-2024 End: 08-28-2024 Patient encounter procedure [facility] Start: 08-12-2024 X-ray of chest, PA and lateral views [facility] Start: 08-07-2024 End: 08-07-2025 DLCO / Diffusion Capacity DLCO / Diffusion Capacity PFT Routine ILD (interstitial lung disease) (Multi) Expected: 08/07/2024 (Approximate), Expires: 08/07/2025 [facility] Work Phone: Comment on above: Expected: 08/07/2024 (Approximate), Expi res: 08/07/2025 Start: 08-07-2024 End: 08-07-2025 Pulmonary Stress Test (6 Min. Walk) Pulmonary Stress Test (6 Min. Walk) PFT Routine ILD (interstitial lung disease) (Multi) Expected: 08/07/2024 (Approximate), Expires: 08/07/2025 [facility] Work Phone: Comment on above: Expected: 08/07/2024 (Approximate), Expi res: 08/07/2025 Start: 08-07-2024 End: 05-09-2026 Spirometry Pre/Post Bronchodilator Spirometry Pre/Post Bronchodilator PFT Routine ILD (interstitial lung disease) (Multi) Expected: 08/07/2024 (Approximate), Expires: 08/07/2025 [facility] Service Area Work Phone: Comment on above: Expected: 08/07/2024 (Approximate), Expi res: 08/07/2025 Start: 07-24-2024 End: 07-24-2024 Patient encounter procedure [facility] Start: 07-23-2024 End: 07-23-2024 Patient encounter procedure 07/23/2024 2:00 PM EDT Appointment [facility] [address] [place] [address] [facility] Start: 07-19-2024 DTaP/Tdap/Td Vaccines (2 - Td or Tdap) DTaP/Tdap/Td Vaccines (2 - Td or Tdap) [facility] Start: 07-13-2024 End: 07-13-2024 Patient encounter procedure 07/13/2024 2:00 PM EDT Appointment [facility] [address] [place] [id number] [facility] Start: 06-26-2024 End: 06-26-2025 Aldolase [Enzymatic activity/volume] in Serum or Plasma Aldolase Lab Routine ILD (interstitial lung disease) (Multi) Expected: 06/26/2024 (Approximate), Expires: 06/26/2025 [facility] Work Phone: Comment on above: Expected: 06/26/2024 (Approximate), Expi res: 06/26/2025 Start: 06-26-2024 End: 06-26-2025 C reactive protein [Mass/volume] in Serum or Plasma C-Reactive Protein Lab Routine ILD (interstitial lung disease) (Multi) Expected: 06/26/2024 (Approximate), Expires: 06/26/2025 [facility] Work Phone: Comment on above: Expected: 06/26/2024 (Approximate), Expi res: 06/26/2025 Start: 06-26-2024 End: 06-26-2025 Complete Pulmonary Function Test (Spirometry/DLCO/Lung Volumes) Complete Pulmonary Function Test (Spirometry/DLCO/Lung Volumes) PFT Routine ILD (interstitial lung disease) (Multi) Expected: 06/26/2024 (Approximate), Expires: 06/26/2025 [facility] Work Phone: Comment on above: Expected: 06/26/2024 (Approximate), Expi res: 06/26/2025 Start: 06-26-2024 End: 06-26-2025 Creatine kinase [Enzymatic activity/volume] in Serum or Plasma Creatine Kinase Lab Routine ILD (interstitial lung disease) (Multi) Expected: 06/26/2024 (Approximate), Expires: 06/26/2025 [facility] Work Phone: Comment on above: Expected: 06/26/2024 (Approximate), Expi res: 06/26/2025 Start: 06-26-2024 End: 06-26-[address] chest high resolution Imaging Routine ILD (interstitial lung disease) (Multi) Expected: 06/26/2024 (Approximate), Expires: 06/26/2025 [facility] Service Area Work Phone: Comment on above: Expected: 06/26/2024 (Approximate), Expi res: 06/26/2025 Start: 06-26-2024 End: 06-26-2025 Cyclic citrullinated peptide IgG Ab [Units/volume] in Serum or Plasma Citrulline Antibody, IgG Lab Routine ILD (interstitial lung disease) (Multi) Expected: 06/26/2024 (Approximate), Expires: 06/26/2025 [facility] Work Phone: Comment on above: Expected: 06/26/2024 (Approximate), Expi res: 06/26/2025 Start: 06-26-2024 End: 06-26-2025 Erythrocyte sedimentation rate Sedimentation Rate Lab Routine ILD (interstitial lung disease) (Multi) Expected: 06/26/2024 (Approximate), Expires: 06/26/2025 [facility] Work Phone: Comment on above: Expected: 06/26/2024 (Approximate), Expi res: 06/26/2025 Start: 06-26-2024 End: 06-26-2025 Extended Myositis Panel Extended Myositis Panel Lab Routine ILD (interstitial lung disease) (Multi) Expected: 06/26/2024 (Approximate), Expires: 06/26/2025 [facility] Work Phone: Comment on above: Expected: 06/26/2024 (Approximate), Expi res: 06/26/2025 Start: 06-26-2024 End: 06-26-2025 Hypersensitivity Pneumonitis Panel Hypersensitivity Pneumonitis Panel Lab Routine ILD (interstitial lung disease) (Multi) Expected: 06/26/2024 (Approximate), Expires: 06/26/2025 [facility] Work Phone: Comment on above: Expected: 06/26/2024 (Approximate), Expi res: 06/26/2025 Start: 06-26-2024 End: 06-26-2025 MPO, PR3 with Reflex to ANCA MPO, PR3 with Reflex to ANCA Lab Routine ILD (interstitial lung disease) (Multi) Expected: 06/26/2024 (Approximate), Expires: 06/26/2025 [facility] Work Phone: Comment on above: Expected: 06/26/2024 (Approximate), Expi res: 06/26/2025 Start: 06-26-2024 End: 06-26-2025 Nuclear Ab [Presence] in Serum by Hep2 substrate RICARDO with Reflex to NEELA Lab Routine ILD (interstitial lung disease) (Multi) Expected: 06/26/2024 (Approximate), Expires: 06/26/2025 [facility] Work Phone: Comment on above: Expected: 06/26/2024 (Approximate), Expi res: 06/26/2025 Start: 06-26-2024 End: 06-26-2025 Pulmonary Stress Test (6 Min. Walk) Pulmonary Stress Test (6 Min. Walk) PFT Routine ILD (interstitial lung disease) (Multi) Expected: 06/26/2024 (Approximate), Expires: 06/26/2025 [facility] Work Phone: Comment on above: Expected: 06/26/2024 (Approximate), Expi res: 06/26/2025 Start: 06-26-2024 End: 06-26-2025 Rheumatoid factor [Units/volume] in Serum by Nephelometry Rheumatoid Factor Lab Routine ILD (interstitial lung disease) (Multi) Expected: 06/26/2024 (Approximate), Expires: 06/26/2025 [facility] Work Phone: Comment on above: Expected: 06/26/2024 (Approximate), Expi res: 06/26/2025 Start: 06-26-2024 End: 06-26-2026 US Heart Transthoracic Transthoracic Echo (TTE) Complete Echocardiography Routine Pulmonary hypertension ([facility]) Expected: 06/26/2024 (Approximate), Expires: 06/26/2026 [facility] Work Phone: Comment on above: Expected: 06/26/2024 (Approximate), Expi res: 06/26/2026 Start: 05-06-2024 End: 05-06-2024 Patient encounter procedure 05/06/2024 10:00 AM EST Appointment [facility] [address] [place] [phone] [facility] Start: 04-27-2024 End: 04-27-2024 Patient encounter procedure 04/27/2024 3:00 PM EST Office Visit [facility] [place] [address] [place] [phone] Suzy Jauregui MD [address] [place], [place] [id number] [facility] [place] Start: 04-25-2024 Patient discharge [facility] Start: 04-24-2024 Dual pressure spontaneous ventilation support [facility] Start: 04-24-2024 Aspiration precautions [facility] Start: 04-24-2024 Assessment of risk of venous thromboembolism [facility] Start: 04-24-2024 Cardiac monitoring [facility] Start: 04-24-2024 Care regimes management [facility] Start: 04-24-2024 Catheterization of vein [facility] Start: 04-24-2024 Consultation [facility] Start: 04-24-2024 Continuous pulse oximetry [facility] Start: 04-24-2024 Elevation of head of bed [facility] Start: 04-24-2024 Exercises [facility] Start: 04-24-2024 Fall prevention [facility] Start: 04-24-2024 Inhalation therapy procedure [facility] Start: 04-24-2024 Insertion of catheter into peripheral vein [facility] Start: 04-24-2024 Introduction of urinary catheter [facility] Start: 04-24-2024 Measuring intake and output [facility] Start: 04-24-2024 Notification of physician [facility] Start: 04-24-2024 Oxygen therapy [facility] Start: 04-24-2024 [facility] referral to [facility] Start: 04-24-2024 Providing care according to standard [facility] Start: 04-24-2024 Provision of activity privileges [facility] Start: 04-24-2024 Referral to occupational therapist [facility] Start: 04-24-2024 Referral to service [facility] Start: 04-24-2024 Speech therapy assessment [facility] Start: 04-24-2024 Telemedicine consultation with patient [facility] Start: 04-24-2024 Tobacco use cessation education [facility] Start: 04-24-2024 End: 04-24-2024 [facility] Start: 04-24-2024 Following clinical pathway protocol [facility] Start: 04-24-2024 Admission procedure [facility] Start: 04-24-2024 Patient referral to [facility] Start: 04-24-2024 [facility] Start: 04-15-2024 Referral to service [facility] Start: 04-15-2024 Patient discharge [facility] Start: 04-15-2024 Fluid restriction [facility] Start: 04-14-2024 [facility] Start: 04-13-2024 Consultation [facility] Start: 04-13-2024 [facility] Start: 04-13-2024 Elevation of head of bed [facility] Start: 04-13-2024 Patient education [facility] Start: 04-13-2024 [facility] Start: 04-12-2024 Following clinical pathway protocol [facility] Start: 04-12-2024 Ambulation without limitation [facility] Start: 04-12-2024 Assessment of risk of venous thromboembolism [facility] Start: 04-12-2024 Care regimes management [facility] Start: 04-12-2024 Catheterization of vein [facility] Start: 04-12-2024 Elevation of affected extremity [facility] Start: 04-12-2024 Inhalation therapy procedure [facility] Start: 04-12-2024 Insertion of catheter into peripheral vein [facility] Start: 04-12-2024 Measuring intake and output [facility] Start: 04-12-2024 Notification of physician [facility] Start: 04-12-2024 Oxygen therapy [facility] Start: 04-12-2024 Patient education [facility] Start: 04-12-2024 Providing care according to standard [facility] Start: 04-12-2024 End: 04-12-2024 [facility] Start: 04-12-2024 Admission procedure [facility] Start: 04-12-2024 Patient referral to dietitian [facility] Start: 02-13-2024 End: 02-12-2025 RFA Cerebral arteries Bilateral Views W contrast IA IR angiogram cerebral with possible intervention Imaging Routine Ischemic cerebrovascular accident (CVA) (HCC) Bilateral carotid artery stenosis Expected: 02/13/2024, Expires: 02/12/2025 [employer] Work Phone: Comment on above: Expected: 02/13/2024, Expires: Start: 01-22-2024 Subsequent hospital visit by physician 01/22/2024 10:45 AM EDT Hospital Encounter [facility] [address] [place] [address] Oziel Culp MD [address] [place] [address] [facility] [address] Start: 01-20-2024 End: 01-05-2025 CTA Head vessels and Neck vessels WO and W contrast IV CTA head neck angio w and wo IV contrast Imaging Routine Bilateral carotid artery stenosis Ischemic cerebrovascular accident (CVA) (HCC) Expected: 01/20/2024, Expires: 01/05/2025 [employer] Work Phone: Comment on above: Expected: 01/20/2024, Expires: Start: 01-16-2024 End: 01-15-2025 Creatinine [Mass/volume] in Serum or Plasma Creatinine, Serum Lab Routine Chronic kidney disease, unspecified CKD stage Expected: 01/16/2024 (Approximate), Expires: 01/15/2025 [employer] Work Phone: Comment on above: Expected: 01/16/2024 (Approximate), Expi res: 01/15/2025 Start: 12-01-2023 Influenza vaccination Influenza Vaccine (#1) [facility] [employer] Start: 2023 RSV Immunization aged 60 or older (1 - 1-dose 60+ series) RSV Immunization aged 60 or older (1 - 1-dose 60+ series) [facility] Start: 2023 RSV Immunization for Adults (1 - Risk 60-74 years 1-dose series) RSV Immunization for Adults (1 - Risk 60-74 years 1-dose series) [facility] Start: 07-03-2023 Patient referral [facility] Work Phone: Start: 02-18-2023 Anesthesia cervical spine & cord nos ANESTH SPINE CORD SURGERY [facility] Start: 02-18-2023 Njx dx/ther agt pvrt facet jt crv/thrc 1 level INJ PARAVERT F JNT C/T 1 [facility] Start: 02-18-2023 Njx dx/ther agt pvrt facet jt crv/thrc 2nd level INJ PARAVERT F JNT C/T 2 [facility] Start: 02-18-2023 Njx dx/ther agt pvrt facet jt crv/thrc 3+ level INJ PARAVERT F JNT C/T 3 LEV [facility] Start: 02-18-2023 Fluoroscopy guided injection of cervical spinal nerve root OR-Steroid Inj/Cer Thor/1st L [facility] Start: 02-18-2023 Injection of facet joint [facility] Start: 02-18-2023 X-ray of cervical spine Cerv Spine 4 or 5 Views [facility] Start: 02-18-2023 Patient discharge [facility] Start: 12-10-2022 Patient referral [facility] Work Phone: Start: 10-08-2022 Patient referral [facility] Work Phone: Start: 08-03-2022 Patient discharge [facility] Start: 08-03-2022 Referral to occupational therapist [facility] Start: 08-03-2022 Referral to service [facility] Start: 08-02-2022 [facility] Start: 08-02-2022 Following clinical pathway protocol [facility] Start: 08-02-2022 Assessment of risk of venous thromboembolism [facility] Start: 08-02-2022 Cardiac monitoring [facility] Start: 08-02-2022 Care regimes management [facility] Start: 08-02-2022 Catheterization of vein [facility] Start: 08-02-2022 Elevation of head of bed [facility] Start: 08-02-2022 Exercises [facility] Start: 08-02-2022 Fall prevention [facility] Start: 08-02-2022 Implementation of planned interventions [facility] Start: 08-02-2022 Inhalation therapy procedure [facility] Start: 08-02-2022 Insertion of catheter into peripheral vein [facility] Start: 08-02-2022 Introduction of urinary catheter [facility] Start: 08-02-2022 Measuring intake and output [facility] Start: 08-02-2022 Notification of physician [facility] Start: 08-02-2022 Oxygen therapy [facility] Start: 08-02-2022 End: 08-02-2022 Patient referral to dietitian [facility] Start: 08-02-2022 Providing care according to standard [facility] Start: 08-02-2022 Provision of activity privileges [facility] Start: 08-02-2022 Referral to occupational therapist [facility] Start: 08-02-2022 Referral to service [facility] Start: 08-02-2022 Speech therapy assessment [facility] Start: 08-02-2022 Tobacco use cessation education [facility] Start: 08-02-2022 [facility] Start: 08-01-2022 Admission procedure [facility] Start: 08-14-2021 Radionuclide imaging of perfusion of myocardium under exercise stress Nuclear Stress Test - Treadmil [facility] Work Phone: Start: 06-20-2021 Patient discharge [facility] Work Phone: Start: 06-19-2021 Following clinical pathway protocol [facility] Work Phone: Start: 06-19-2021 Care regimes management [facility] Work Phone: Start: 06-19-2021 Notification of physician [facility] Work Phone: Start: 06-19-2021 End: 06-19-2021 [facility] Work Phone: Start: 06-19-2021 Admission procedure [facility] Work Phone: Start: 08-05-2020 COVID-19 Vaccine (3 - Moderna risk series) COVID-19 Vaccine (3 - Moderna risk series) [facility] Start: 07-03-2020 PROSTATE CANCER SCREENING DISCUSSION PROSTATE CANCER SCREENING DISCUSSION [facility] Start: 12-01-2019 Influenza vaccination INFLUENZA (#1) [facility] Start: 09-20-2016 Thyroid stimulating hormone measurement TSH Level [facility] Start: 09-09-2016 [object Object] DIABETIC FOOT EXAM [facility] Start: 12-12-2015 HbA1c (Bld) [Mass fraction] HBA1C [place] [facility] Start: 12-07-2015 Pneumococcal vaccination Pneumococcal Vaccine (2 of 2 - PCV) [facility] Start: 12-07-2015 Pneumococcal Vaccine: 50+ Years (2 of 2 - PCV) Pneumococcal Vaccine: 50+ Years (2 of 2 - PCV) [facility] Start: 12-07-2015 Pneumococcal Vaccine: Pediatrics (0 to 5 Years) and At-Risk Patients (6 to 64 Years) (2 of 2 - PCV) Pneumococcal Vaccine: Pediatrics (0 to 5 Years) and At-Risk Patients (6 to 64 Years) (2 of 2 - PCV) [facility] Start: 08-24-2013 Prostate specific antigen measurement PSA Prostate Cancer Screening [facility] Start: 08-24-2013 SHINGRIX VACCINE (1 of 2) SHINGRIX VACCINE (1 of 2) [facility] Start: 08-24-2013 Tuberculosis screening COLORECTAL CANCER SCREENING,SEE MODIFIER [facility] Start: 03-10-2009 MMR Vaccines (1 of 1 - Standard series) MMR Vaccines (1 of 1 - Standard series) [facility] Start: 08-24-1982 Urine microalbumin profile DTAP,TDAP,TD (1 - Tdap) [facility] Start: 08-24-1981 ANNUAL PCP TEAM CHRONIC DISEASE VISIT ANNUAL PCP TEAM CHRONIC DISEASE VISIT [facility] Start: 08-24-1981 BP CONTROLLED (<130/80) BP CONTROLLED (<130/80) [place] [facility] Start: 08-24-1981 Diabetes: Urine Albumin-Creatinine Ratio for Kidney Health Diabetes: Urine Albumin-Creatinine Ratio for Kidney Health [facility] Start: 08-24-1981 Hepatitis B surface antibody level LDL CHOLESTEROL [facility] Start: 08-24-1981 HEPATITIS C SCREENING HEPATITIS C SCREENING [facility] Start: 08-24-1981 Hepatitis C screening Hepatitis C Screening [facility] Start: 08-24-1981 HIV SCREENING HIV SCREENING [facility] Start: 1975 Depression Screening Depression Screening [facility] Start: 08-24-1973 Diabetic foot examination Diabetes: Foot Exam [facility] Start: 08-24-1973 Glaucoma screening Diabetes: Retinopathy Screening [facility] Start: 08-24-1973 Hepatitis B screening URINE ALBUMIN:CREATININE RATIO [facility] Start: 08-24-1973 Hepatitis C antibody, confirmatory test DILATED RETINAL EXAM [facility] Start: 08-24-1973 Preventive dental service Diabetes: Dental Exam [facility] Start: 08-24-1964 MMR Vaccines (1 of 1 - Standard series) MMR Vaccines (1 of 1 - Standard series) [facility] Start: 1963 Creatinine measurement Creatinine Level [facility] Start: 1963 Echocardiography Echocardiogram [facility] Start: 1963 HIV screening HIV Screening [facility] Start: 1963 Potassium measurement Potassium Level [facility] Start: 1963 Screening for malignant neoplasm of colon [facility] Start: 1963 Skin Cancer Screening Skin Cancer Screening [facility] Start: 1963 Thyroid stimulating hormone measurement TSH Level [facility] Start: 1963 Yearly Adult Physical Yearly Adult Physical [facility] Aspergillus Galactom vicenta EIA (Non-Blood Specimen) [facility] Work Phone: Comment on above: Release Upon Ordering for 1 Occurrences starting 09/24/2024 Bacteria identified in Unspecified specimen by Respiratory culture Respiratory Culture/Smear Microbiology Routine ILD (interstitial lung disease) ([facility]) 09/24/2024 8:39 AM EDT [facility] Work Phone: CBC W Auto Different ial panel - Blood [facility] CBC W Auto Different ial panel - Blood [facility] End: 07-24-2024 Complete Pulmonary Function Test (Spirometry/DLCO/Lung Volumes) [facility] Service Area Work Phone: Comment on above: Once for 1 Occurrences starting 07/25/19 until 07/24/2024 DLCO / Diffusion Capacity DLCO / Diffusion Capacity PFT Routine ILD (interstitial lung disease) ([facility]) 08/18/2024 10:39 AM EDT [facility] Service Area Work Phone: DLCO / Diffusion Capacity DLCO / Diffusion Capacity PFT Routine ILD (interstitial lung disease) ([facility]) 01/15/2025 1:08 PM EDT [facility] Service Area Work Phone: ECG 12 lead ECG 12 lead CV E CG Routine 05/06/2024 9:00 AM EST [facility] Work Phone: Ferritin [Mass/volum e] in Serum or Plasma [facility] Ferritin [Mass/volum e] in Serum or Plasma [facility] Folate [Mass/volume] in Serum or Plasma [facility] Fungus identified in Unspecified specimen by Culture [facility] Work Phone: Comment on above: Release Upon Ordering for 1 Occurrences starting 09/24/2024 Hepatic function panel [facility] Hepatic function panel [facility] Hepatic function panel [facility] Histoplasma capsulat um Ag [Units/volume] in Serum by Immunoassay [facility] Work Phone: Comment on above: Release Upon Ordering for 1 Occurrences starting 09/24/2024 Iron and Iron bindin g capacity panel - Serum or Plasma [facility] Iron and Iron bindin g capacity panel - Serum or Plasma [facility] Rapids and lambda lig ht chains [facility] Lactic acid measurement [facility] Legionella PCR Panel [facility] Work Phone: Comment on above: Release Upon Ordering for 1 Occurrences starting 09/24/2024 Lipid 1995 panel - S verna or Plasma [facility] Lipid 1995 panel - S verna or Plasma [facility] Lipid 1995 panel - S verna or Plasma [facility] Mycobacterium sp herrera ntified in Unspecified specimen by Organism specific culture [facility] Work Phone: Comment on above: Release Upon Ordering for 1 Occurrences starting 09/24/2024, 1 completed NM Heart Views W str ess and W radionuclide IV [facility] Work Phone: Non-gynecological cy tology method study [facility] Work Phone: Comment on above: Release Upon Ordering for 1 Occurrences starting 09/24/2024, 1 completed End: 09-24-2024 Pathologist review of results [facility] Work Phone: Comment on above: Once (Lab) for 1 Occurrences starting until 09/24/2024, 1 completed Patient Education [facility] Work Phone: Patient referral [facility] Work Phone: End: 07-24-2024 Pulmonary Stress Test (6 Min. Walk) [facility] Work Phone: Comment on above: Once for 1 Occurrences starting 07/25/19 until 07/24/2024 Pulmonary Stress Karly t (6 Min. Walk) Pulmonary Stress Test (6 Min. Walk) PFT Routine ILD (interstitial lung disease) (Multi) 08/18/2024 11:30 AM EDT [facility] Work Phone: Pulmonary Stress Karly t (6 Min. Walk) Pulmonary Stress Test (6 Min. Walk) PFT Routine ILD (interstitial lung disease) (Multi) Chronic respiratory failure with hypoxia 01/15/2025 1:51 PM EDT [facility] Area Work Phone: Reticulocyte count [facility] Reticulocyte count [facility] Spirometry Pre/Post Bronchodilator Spirometry Pre/Post Bronchodilator PFT Routine ILD (interstitial lung disease) (Multi) 08/18/2024 11:36 AM EDT [facility] Work Phone: Spirometry Pre/Post Bronchodilator Spirometry Pre/Post Bronchodilator PFT Routine ILD (interstitial lung disease) (Multi) 01/15/2025 1:45 PM EDT [facility] Work Phone: Surgical pathology study [facility] Work Phone: Comment on above: Release Upon Ordering for 1 Occurrences starting 09/24/2024, 1 completed End: 09-24-2024 T-cell subsets CD4 and CD8 panel - Blood [facility] Work Phone: Comment on above: Release Upon Ordering for 1 Occurrences starting 09/24/2024 Once for 1 Occurrenc es starting 09/24/2024 until 09/24/2024 T4 free measurement [facility] T4 free measurement [facility] T4 free measurement [facility] Thiamine measurement [facility] Thyroid stimulating hormone measurement [facility] Thyroid stimulating hormone measurement [facility] Thyroid stimulating hormone measurement [facility] Troponin T.cardiac [Mass/volume] in Serum or Plasma by High sensitivity method [facility] Troponin T.cardiac [Mass/volume] in Serum or Plasma by High sensitivity method [facility] Troponin T.cardiac [Mass/volume] in Serum or Plasma by High sensitivity method [facility] US Carotid arteries [facility] Work Phone: US Carotid arteries [facility] US Carotid arteries [facility] End: 07-23-2024 US Heart Transthoracic [facility] Service Area Work Phone: Comment on above: Once for 1 Occurrences starting 07/24/19 25 until 07/23/2024 Vitamin B12 measurement [facility] Immunizations Immunization Date Immunization Notes Care Provider Lv sharla 01-13-2024 RSV Adult Recombinan t (Arexvy) Dr. Radha Khan MD Work Phone: [facility] 01-10-2024 influenza, seasonal, injectable, preservative free Dr. Radha Khan MD Work Phone: [facility] 01-10-2024 influenza virus vacc ine, unspecified formulation Rosalino Padron MD Work Phone: [facility] Work Phone: 01-18-2023 influenza virus vacc ine, unspecified formulation CHITO BUENROSTRO 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 01-26-2022 influenza virus vacc ine, unspecified formulation CHITO MEDLEYZdorovioGABRIELA 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 01-26-2022 influenza, injectabl e, quadrivalent, contains preservative Oziel Culp MD Work Phone: [facility] 01-26-2022 influenza, injectabl e, quadrivalent, preservative free Dr. Radha Khan Work Phone: [facility] 01-26-2022 influenza, seasonal, injectable Dr. Radha Khan Work Phone: [facility] 01-16-2021 zoster vaccine recombinant CHITO MEDLEY-GABRIELA 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 01-06-2021 influenza virus vacc ine, unspecified formulation CHITOMATTHEW BUENROSTRO 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 01-06-2021 influenza, injectabl e, quadrivalent, contains preservative Oziel Culp MD Work Phone: [facility] 11-30-2020 influenza, injectabl e, quadrivalent, preservative free Dr. Radha Khan Work Phone: [facility] 11-30-2020 influenza, seasonal, injectable Dr. Radha Khan Work Phone: [facility] 07-08-2020 Covid (Moderna) Dr. Radha fuller Work Phone: [facility] 06-10-2020 Covid (Moderna) Dr. Radha fuller Work Phone: [facility] 01-27-2020 influenza virus vacc ine, unspecified formulation CHITO BUENROSTRO 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 01-27-2020 influenza, injectabl e, quadrivalent, contains preservative Oziel Culp MD Work Phone: [facility] 01-16-2019 influenza virus vacc ine, unspecified formulation CHITO BUENROSTRO 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 01-16-2019 influenza, injectabl e, quadrivalent, contains preservative Oziel Culp MD Work Phone: [facility] 01-21-2018 influenza virus vacc ine, unspecified formulation CHITO BUENROSTRO 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 01-21-2018 influenza, seasonal, injectable Oziel Culp MD Work Phone: [facility] 12-24-2017 influenza, injectabl e, quadrivalent, preservative free Dr. Radha Khan Work Phone: [facility] 12-24-2017 influenza, seasonal, injectable Dr. Radha Khan Work Phone: [facility] 12-09-2015 influenza virus vacc ine, unspecified formulation CHITO BUENROSTRO 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 12-09-2015 influenza, seasonal, injectable Oziel Culp MD Work Phone: [facility] 12-24-2014 influenza virus vacc ine, unspecified formulation CHITO BUENROSTRO 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 12-24-2014 influenza, seasonal, injectable Oziel Culp MD Work Phone: [facility] 12-06-2014 pneumococcal polysaccharide vaccine, 23 valent CHITO BUENROSTRO 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 07-19-2014 tetanus toxoid, redu federica diphtheria toxoid, and acellular pertussis vaccine, adsorbed CHITO BUENROSTRO 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 02-10-2014 influenza virus vacc ine, unspecified formulation CHITO BUENROSTRO 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 02-10-2014 influenza, seasonal, injectable Oziel Culp MD Work Phone: [facility] 02-10-2009 novel influenza-H1N1 -09, preservative-free, injectable Oziel Culp MD Work Phone: [facility] Payers Date Payer Category Payer [facility] Care (Private) [facility] Member Subscriber Plan / Payer (Effective 2024-Present) Name: Krunal Leos Relation to Subscriber: Self Name: Krunal Leos Payer ID: Not on file Type: Not on file Address: [place] [id number] 2024 Self-pay [id number] 2023 Commercial Managed C are - HMO [id number] 2023 Unknown [employer] MO [employer]PERMED [id number] 2023-Present [address] [place] [address] Commercial [id number] 2023 Unknown [id number] 2014 Unknown [id number] 2009 Unknown THP [facility] THP HMO [id number] 2009-Present HMO [id number] [address] [facility] THP HMO [id number] 1996-2015 HMO [id number]. [id number] 1963 Unknown [id number] 2.840.1.868629.3.579.2. 627 1963 Unknown [id number] 2.16.840.1.271672.3.579.2. 1242 1963 Unknown [id number] 2.16.840.1.930874.3.579.2. 1247 1963 Unknown [id number] 2.840.1.110118.3.579.2. 1243 1963 Unknown [id number] 2.16.840.1.215573.3.579.2. 1242 1963 Unknown [id number] 2.16.840.1.517639.3.579.2. 1244 1963 Unknown [id number] 2.16840.1.568333.3.579.2. 1244 1963 Unknown [id number] 2.16840.1.905877.3.579.2. 1244 1963 Unknown [id number] 2.16840.1.665379.3.579.2. 1244 1963 Unknown [id number] 2.840.1.731253.3.579.2. 1244 1963 Unknown [id number] 2.840.1.850028.3.579.2. 1244 1963 Unknown [id number] 2.0.1.315294.3.579.2. 1244 1963 Unknown [id number] 2.840.1.983370.3.579.2. 1244 1963 Unknown [id number] 2.0.1.259970.3.579.2. 1244 1963 Unknown [id number] 2.0.1.495566.3.579.2. 1244 1963 Unknown [id number] 2.840.1.074260.3.579.2. 1244 1963 Unknown [id number] 2.840.1.480859.3.579.2. 1244 1963 Unknown [id number] 2.840.1.381680.3.579.2. 124 Unknown [id number] Unknown [id number] 2.16840.1.634749.3.579.2. 462 Unknown [id number] 2.16.840.1.972335.3.579.2. 462 Unknown [id number] 2.16.840.1.249231.3.579.2. 462 Unknown [id number] 2.16.840.1.900158.3.579.2. 462 Unknown [id number] 2.16.840.1.294784.3.579.2. 462 Unknown [id number] 2.16.840.1.139067.3.579.2. 462 Unknown [id number] 2.16.840.1.489495.3.579.2. 462 Unknown [id number] 2.16.840.1.523037.3.579.2. 462 Unknown [id number] 2.16.840.1.012053.3.579.2. 462 Unknown [id number] 2.16.840.1.934385.3.579.2. 462 Unknown [id number] 2.16.840.1.934410.3.579.2. 462 Unknown [id number] 2.16.840.1.534434.3.579.2. 462 Unknown [id number] 2.16.840.1.794199.3.579.2. 462 Unknown [id number] 2.16.840.1.545070.3.579.2. 462 Unknown [id number] 2.16.840.1.560004.3.579.2. 462 Unknown [id number] 2.16.840.1.036490.3.579.2. 462 Unknown [id number] 2.16.840.1.342462.3.579.2. 462 Unknown [id number] 2.16.840.1.629289.3.579.2. 462 Unknown [id number] 2.16.840.1.930159.3.579.2. 462 Unknown [id number] 2.16.840.1.729363.3.579.2. 462 Unknown [id number] 2.16.840.1.667056.3.579.2. 462 Unknown [id number] 2.16840.1.183159.3.579.2. 462 Unknown [id number] 2.16.840.1.151107.3.579.2. 462 Unknown [id number] 2.840.1.814468.3.579.2. 462 Unknown [id number] 2.840.1.683452.3.579.2. 462 Unknown [id number] 2.840.1.132384.3.579.2. 462 Unknown [id number] 2.840.1.559662.3.579.2. 462 Unknown [id number] 2.840.1.238709.3.579.2. 462 Unknown [id number] 2.840.1.929344.3.579.2. 462 Unknown [id number] 2.840.1.997874.3.579.2. 462 Unknown [id number] 2.840.1.814122.3.579.2. 462 Unknown [id number] 2.840.1.870700.3.579.2. 462 Unknown [id number] 2.840.1.274000.3.579.2. 462 Unknown [id number] 2.840.1.178884.3.579.2. 462 Unknown [id number] 2.840.1.198295.3.579.2. 462 Unknown [id number] 2.840.1.702893.3.579.2. 462 Unknown [id number] 2.840.1.540216.3.579.2. 462 Unknown [id number] 2.840.1.163445.3.579.2. 462 Unknown [id number] 2.16.840.1.732647.3.579.2. 462 Unknown [id number] 2.16.840.1.538365.3.579.2. 462 Unknown [id number] 2.16.840.1.411384.3.579.2. 462 Unknown [id number] 2.16.840.1.555246.3.579.2. 462 Unknown [id number] 2.16.840.1.230331.3.579.2. 462 Unknown [id number] 2.16.840.1.949456.3.579.2. 462 Unknown [id number] 2.16.840.1.315708.3.579.2. 462 Unknown [id number] 2.16.840.1.978810.3.579.2. 462 Unknown [id number] 2.840.1.803393.3.579.2. 462 Unknown [id number] 2.16.840.1.817217.3.579.2. 462 Unknown [id number] 2.16.840.1.318532.3.579.2. 462 Unknown [id number] 2.16.840.1.742957.3.579.2. 462 Unknown [id number] 2.16.840.1.345998.3.579.2. 462 Unknown [id number] 2.16.840.1.287496.3.579.2. 462 Unknown [id number] 2.16.840.1.667966.3.579.2. 462 Unknown [id number] 2.16.840.1.645158.3.579.2. 462 Unknown [id number] 2.16.840.1.964704.3.579.2. 462 Unknown [id number] 2.16.840.1.159715.3.579.2. 462 Unknown [id number] 2.16.840.1.645288.3.579.2. 462 Unknown [id number] 2.840.1.437933.3.579.2. 462 Unknown [id number] 2.840.1.086546.3.579.2. 462 Unknown [id number] 2.840.1.411043.3.579.2. 462 Unknown [id number] 2.840.1.256192.3.579.2. 462 Unknown [id number] 2.840.1.812182.3.579.2. 462 Unknown [id number] 2.840.1.242795.3.579.2. 462 Unknown [id number] 2.840.1.435827.3.579.2. 462 Unknown [id number] 2.840.1.966261.3.579.2. 462 Unknown [id number] 2.840.1.766250.3.579.2. 462 Unknown [id number] 2.840.1.789150.3.579.2. 462 Unknown [id number] 2.840.1.334345.3.579.2. 462 Unknown [id number] 2.840.1.800213.3.579.2. 462 Unknown [id number] 2.840.1.553655.3.579.2. 462 Unknown [id number] 2.840.1.047324.3.579.2. 462 Unknown [id number] 2.840.1.318390.3.579.2. 462 Unknown [id number] 2.840.1.509006.3.579.2. 462 Unknown [id number] 2.840.1.935627.3.579.2. 462 Unknown [id number] 2.840.1.892023.3.579.2. 462 Unknown [id number] 2.840.1.087964.3.579.2. 462 Unknown [id number] 2.16840.1.284291.3.579.2. 462 Unknown [id number] 2.16.840.1.867752.3.579.2. 462 Unknown [id number] 2.16.840.1.166234.3.579.2. 462 Unknown [id number] 2.16840.1.133113.3.579.2. 462 Unknown [id number] 2.16.840.1.520809.3.579.2. 462 Unknown [id number] 2.16840.1.987535.3.579.2. 462 Unknown [id number] 2.840.1.207351.3.579.2. 462 Social History Date Type Detail Facility Start: 06-14-2007 End: 01-06-2024 Tobacco smoking status COIS Never smoker [facility] Start: 06-14-2007 Alcohol intake Not Asked [facility] Start: 1965 Sex Assigned At Not on file [facility] Start: 07-16-2021 End: 07-17-2023 Tobacco smoking status [facility] Unknown if ever smoked [facility] Start: 03-28-2020 None [facility] Start: 03-28-2020 Spouse/ Significant Other [facility] Start: 04-20-2018 Non-smoker [facility] Start: 1965 Sex Assigned At Male [facility] Start: 10-03-2023 Gender identity Identifies as male gender (finding) [facility] Start: 01-06-2024 End: 01-18-2025 Sexual orientation Not on file [facility] Start: 01-06-2024 Tobacco use and exposure Smokeless tobacco non-user [facility] Start: 01-06-2024 End: 01-18-2025 Alcoholic beverage intake Ex-drinker (finding) [facility] Start: 01-06-2024 End: 01-18-2025 History of Social function [facility] Start: 10-03-2023 End: 02-14-2025 Sex Male (finding) [facility] Start: 06-26-2024 End: 01-15-2025 Alcoholic beverage intake Lifetime non-drinker (finding) [facility] Work Phone: Start: 05-22-2024 Sexual orientation Heterosexual (finding) [facility] Work Phone: Start: 06-16-2024 End: 08-28-2024 Exposure to SARS-CoV-2 (event) Not sure [facility] How often to you hav e a drink containing alcohol? Never [facility] Work Phone: Start: 05-15-2024 How many standard drinks containing alcohol do you have on a typical day? Patient does not drink [facility] Work Phone: Medical Equipment Procedure Code Equipment Code Equipment Origin al Text Equipment Identifier Dates Colonoscopy [id number] FDA Start: 03-27-2024 Stent Inlay Opti ma 7fr Taper Yocha Dehe Green Phreecoat Polymer 28cm [facility] [id number] Start: 09-06-2015 Pen Needle, Diab etic (Bd Ultra-Fine Kiki Pen Needle) 32 gauge x 5/32" needle Start: 06-01-2021 Pen Needle, Diab etic (Bd Ultra-Fine Kiki Pen Needle) 32 gauge x 5/32" needle Start: 06-01-2021 Pen Needle, Diab etic (Bd Ultra-Fine Kiki Pen Needle) 32 gauge x 5/32" needle Start: 06-01-2021 Pen Needle, Diab etic (Bd Ultra-Fine Kiki Pen Needle) 32 gauge x 5/32" needle Start: 06-01-2021 Pen Needle, Diab etic (Bd Ultra-Fine Kiki Pen Needle) 32 gauge x 5/32" needle Start: 06-01-2021 Pen Needle, Diab etic (Bd Ultra-Fine Kiki Pen Needle) 32 gauge x 5/32" needle Start: 06-01-2021 Pen Needle, Diab etic (Bd Ultra-Fine Kiki Pen Needle) 32 gauge x 5/32" needle Start: 06-01-2021 Pen Needle, Diab etic (Bd Ultra-Fine Kiki Pen Needle) 32 gauge x 5/32" needle Start: 06-01-2021 Pen Needle, Diab etic (Bd Ultra-Fine Kiki Pen Needle) 32 gauge x 5/32" needle Start: 06-01-2021 Pen Needle, Diab etic (Bd Ultra-Fine Kiki Pen Needle) 32 gauge x 5/32" needle Start: 06-01-2021 Pen Needle, Diab etic (Bd Ultra-Fine Kiki Pen Needle) 32 gauge x 5/32" needle Start: 06-01-2021 Pen Needle, Diab etic (Bd Ultra-Fine Kiki Pen Needle) 32 gauge x 5/32" needle Start: 06-01-2021 Pen Needle, Diab etic (Bd Ultra-Fine Kiki Pen Needle) 32 gauge x 5/32" needle Start: 06-01-2021 Pen Needle, Diab etic (Bd Ultra-Fine Kiki Pen Needle) 32 gauge x 5/32" needle Start: 06-01-2021 Pen Needle, Diab etic (Bd Ultra-Fine Kiki Pen Needle) 32 gauge x 5/32" needle Start: 06-01-2021 Pen Needle, Diab etic (Bd Ultra-Fine Kiki Pen Needle) 32 gauge x 5/32" needle Start: 06-01-2021 Pen Needle, Diab etic (Bd Ultra-Fine Kiki Pen Needle) 32 gauge x 5/32" needle Start: 06-01-2021 Pen Needle, Diab etic (Bd Ultra-Fine Kiki Pen Needle) 32 gauge x 5/32" needle Start: 06-01-2021 Pen Needle, Diab etic (Bd Ultra-Fine Kiki Pen Needle) 32 gauge x 5/32" needle Start: 06-01-2021 Pen Needle, Diab etic (Bd Ultra-Fine Kiki Pen Needle) 32 gauge x 5/32" needle Start: 06-01-2021 Pen Needle, Diab etic (Bd Ultra-Fine Kiki Pen Needle) 32 gauge x 5/32" needle Start: 06-01-2021 Pen Needle, Diab etic (Bd Ultra-Fine Kiki Pen Needle) 32 gauge x 5/32" needle Start: 06-01-2021 Pen Needle, Diab etic (Bd Ultra-Fine Kiki Pen Needle) 32 gauge x 5/32" needle Start: 06-01-2021 Pen Needle, Diab etic (Bd Ultra-Fine Kiki Pen Needle) 32 gauge x 5/32" needle Start: 06-01-2021 Pen Needle, Diab etic (Bd Ultra-Fine Kiki Pen Needle) 32 gauge x 5/32" needle Start: 06-01-2021 Pen Needle, Diab etic (Bd Ultra-Fine Kiki Pen Needle) 32 gauge x 5/32" needle Start: 06-01-2021 Pen Needle, Diab etic (Bd Ultra-Fine Kiki Pen Needle) 32 gauge x 5/32" needle Start: 06-01-2021 Pen Needle, Diab etic (Bd Ultra-Fine Kiki Pen Needle) 32 gauge x 5/32" needle Start: 06-01-2021 Device Clsr Mynx it 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 specialist 5fr Gry - [id number] Start: 05-06-2024 Pen Needle, Diab etic (Bd Ultra-Fine Kiki Pen Needle) 32 gauge x 5/32" needle Start: 06-01-2021 End: 04-30-2024 Pen Needle, Diab etic 31 gauge x 5/16" needle Start: 12-22-2020 End: 04-30-2024 Pen Needle, Diab etic (Bd Ultra-Fine Kiki Pen Needle) 32 gauge x 5/32" needle Start: 06-01-2021 End: 04-30-2024 Pen Needle, Diab etic 31 gauge x 5/16" needle Start: 12-22-2020 End: 04-30-2024 Pen Needle, Diab etic (Bd Ultra-Fine Kiki Pen Needle) 32 gauge x 5/32" needle Start: 06-01-2021 End: 04-30-2024 Pen Needle, Diab etic 31 gauge x 5/16" needle Start: 12-22-2020 End: 04-30-2024 Goals Date Patient Goal Desired Activity /State Functional Status Date Assessment Result Facility 01-15-2025 Functional status 89/45 01/16/20 25 1:55 PM EDT Suly Johnston MA 89/45 [facility] Work Phone: 01-15-2025 Vital signs 82 01/15/2025 1: 55 PM EDT Suly Johnston MA [facility] Work Phone: 01-15-2025 Functional status [facility] 01-15-2025 [facility] Work Phone: 11-28-2024 [facility]: 11-13-2024 Functional status 114/69 025 1:01 PM EDT Suly Johnston MA 114/69 [facility] Work Phone: 11-13-2024 Vital signs 74 11/13/2024 1: 01 PM EDT Suly Johnston MA [facility] Work Phone: 09-28-2024 Functional status Chair [facility] Work Phone: 09-24-2024 [facility] 09-24-2024 Irwin - suicide severity rating scale screener - recent [C-SSRS] [facility] Work Phone: 09-24-2024 [facility] Work Phone: 09-24-2024 Functional status [facility] 08-07-2024 Total score [AUDIT-C] 0 08/08/19 25 2:09 PM EDT Rivka Gerardo MA [facility] Work Phone: 04-25-2024 Functional status Ambulates [facility] Work Phone: 04-15-2024 Functional status Ambulates;Chair [facility] Work Phone: 10-03-2023 Functional Status Room check performed [facility] 10-03-2023 Functional Status [facility]red [facility] 10-03-2023 Functional Status Jarred [facility] 10-03-2023 Functional Status bilateral knee high removed/off [facility] 10-02-2023 Functional Status Jarred [facility] 10-02-2023 Functional Status Demonstrates C orrect Call Light Use Yes [facility] 10-02-2023 Functional Status [facility] 10-02-2023 Functional Status Single level home [facility] 10-02-2023 [facility] Functional status Ambulates [facility] Work Phone: 06-20-2021 Functional status Up ad harini [facility] Work Phone: [facility] Work Phone: Mental Status Date Assessment Result Facility 12-23-2024 Cognitive function Voice/Name [facility] Work Phone: 12-17-2024 Cognitive function Awake [facility] Work Phone: 12-10-2024 Cognitive function Awake;Alert;A ppropriate;Fo [facility] Work Phone: 11-28-2024 Cognitive function Voice/Name [facility] Work Phone: 11-26-2024 Cognitive function Awake;Alert;A ppropriate;Fo [facility] Commands [facility] Work Phone: 09-28-2024 Cognitive function Voice/Name [facility] Work Phone: 09-26-2024 Cognitive function Voice/Name [facility] Work Phone: 04-25-2024 Cognitive function Voice/Name [facility] Work Phone: 04-15-2024 Cognitive function Voice/Name [facility] Work Phone: 10-03-2023 Mental Status Oriented x 4 [facility] 10-02-2023 Mental Status [facility] 10-02-2023 Mental Status [facility] 02-18-2023 Cognitive function Voice/Name [facility] Work Phone: 08-03-2022 Cognitive function Awake;Alert;A ppropriate;Fo llows Commands;Responds to vocal stimuli [facility] Work Phone: 08-03-2022 Cognitive function Voice/Name [facility] Work Phone: 06-20-2021 Cognitive function Appropriate;Cooperativ e [facility] Work Phone: Clinical Notes 08-02-2022 to 01-18-2025 Oziel Culp MD - 01/18/2025 10:00 AM Gela Padron MD - 01/15/2025 2:00 PM EDTPatient InstructionsTelephone Encounter - Kandice Curran RN - 01/07/2025 2:08 PM EDT Note Date & Type Note Facility 01-18-2025 History of Presen t illness Narrative History of Present Illness: 59 yo man here for stroke fu and cerebrovascular stenosis. He is present for interview with and daughter. Per my last note (12/2023): He originally presented 09/2023 for left hemiparesis and was transferred to [facility] from [facility]. He was found to have right hemispheric [...] episode of left hemiparesis. He went to [facility] and was found to have increased stroke burden of the right hemisphere. Vascular surgery was consulted and no surgical procedure was recommended. He had a 3rd event of left hemiparesis the following week and a CT was done at [place] [facility]. At that time clopidogrel was added (in addition to ASA and Eliquis). The patient returned to normal and was discharged from the ED to home. 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 He is a nonsmoker. He does report some new SOB over the last week or so, and has plans to see his PCP. He underwent cerebral angiogram 05/2024 which revealed severe right MCA stenosis (99%), left vertebral artery occlusion, and mild bilateral ICA atherosclerosis. He was also found to be a Plavix non-responder at that time and was switched to Brilinta. He had no events on the above regiment until August 2024 when he was being worked up for SOB. He underwent a lung biopsy at that time, and ASA, Brilinta, and Eliquis were held for several days. He did have a right hemispheric stroke off of his medications (and after the biopsy), and CTA at [place] revealed a now complete right MCA occlusion. He has since been restarted on the medications. He has been diagnosed to have idiopathic pulmonary fibrosis, and is now on 4L oxygen at home. He also has weekly events of left face droop and confusion that has prompted trips to [place] hospital and been diagnosed as "TIA". These usually happen at the end of a long day or if he is tired. There have been no additional MRIs and no residual symptoms. After his last visit the family has been told not to come to hospital with routine TIA. The patient and his family have been in contact with Hospice for pulmonary fibrosis, but have not yet decided that they want to pursue this option. 09/2024 - off eliquis for lung biopsy. Past Medical History: Diagnosis Date A-fib (HCC) Bilateral carotid artery stenosis BPH (benign prostatic hyperplasia) CHF (congestive heart failure) (HCC) Chronic idiopathic pulmonary fibrosis (HCC) CVA (cerebral vascular accident) (HCC) DM (diabetes mellitus), type 2 (HCC) HTN (hypertension) Hyperlipidemia Hypothyroid Insulin pump in place Supplemental oxygen dependent 4LNC resting 8LNC with exertion TIA (transient ischemic attack) No past surgical history on file. Current Outpatient Medications: apixaban (Eliquis) 5 MG tablet, Take 1 tablet (5 mg) by mouth 2 times daily., Disp: 60 tablet, Rfl: 0 aspirin 325 MG tablet, Take 325 mg by mouth in the morning., Disp: , Rfl: atorvastatin (Lipitor) 80 MG tablet, Take 1 tablet (80 mg) by mouth Nightly., Disp: 30 tablet, Rfl: 0 betamethasone, augmented, (Diprolene) 0.05 % lotion, APPLY TO RASH ON THE TRUNK OR SCALP 1-2 TIMES DAILY NEEDED, Disp: , Rfl: busPIRone (Buspar) 10 MG tablet, Take 1 tablet (10 mg) by mouth 3 times daily., Disp: 90 tablet, Rfl: 0 Continuous Glucose Sensor (Dexcom G6 Sensor) mis, Dexcom G6 Sensor Mis, USE DIRECTED FOR CONTINUOUS BLOOD GLUCOSE MONITORING, CHANGE SENSOR EVERY 10 DAYS, Disp: , Rfl: dapagliflozin (Farxiga) 5 MG tablet, Take 1 tablet (5 mg) by mouth daily. Do not start before October 06, 2023., Disp: 30 tablet, Rfl: 0 doxycycline (Vibramycin) 100 MG capsule, Take 100 mg by mouth 2 times daily. (Patient not taking: Reported on 05/06/2024), Disp: , Rfl: DULoxetine (Cymbalta) [address] capsule, Take 1 capsule (60 mg) by mouth daily. Do not crush or chew. Do not start before October 06, 2023., Disp: 30 capsule, Rfl: 0 ergocalciferol (Vitamin D2) 1.25 MG (09017 UT) capsule, Take 1 capsule by mouth 1 (one) time per week., Disp: , Rfl: fenofibrate (Tricor) 54 MG tablet, , Disp: , Rfl: furosemide (Lasix) 40 MG tablet, Take 1 tablet (40 mg) by mouth in the morning and 1 tablet (40 mg) in the evening., Disp: 60 tablet, Rfl: 0 glipiZIDE (Glucotrol) 5 MG tablet, Take 1 tablet (5 mg) by mouth every morning (before breakfast). Do not start before October 06, 2023. (Patient not taking: Reported on 05/06/2024), Disp: 30 tablet, Rfl: 0 insulin regular (HumuLIN R,NovoLIN R) 100 UNIT/ML injection, Inject 0.2 mL (20 Units) under the skin in the morning and 0.2 mL (20 Units) at noon and 0.2 mL (20 Units) in the evening. Inject with meals., Disp: 18 mL, Rfl: 0 Jardiance 25 MG, 25 mg., Disp: , Rfl: levothyroxine (Synthroid, Levoxyl) 112 MCG tablet, Take 1 tablet (112 mcg) by mouth every morning (before breakfast). Do not start before October 06, 2023., Disp: 30 tablet, Rfl: 0 lisinopril 40 MG tablet, Take 40 mg by mouth daily., Disp: , Rfl: metoprolol succinate XL (Toprol-XL) 100 MG 24 hr tablet, Take 1 tablet (100 mg) by mouth daily. Do not crush or chew. Do not start before October 06, 2023., Disp: 30 tablet, Rfl: 0 oxyCODONE-acetaminophen (Percocet) 5-325 MG tablet, 1 tablet every 6 hours as needed for severe pain (7-10)., Disp: , Rfl: pantoprazole (ProtoNix) 40 MG EC tablet, Take 1 tablet (40 mg) by mouth every morning (before breakfast). Do not crush, chew, or split. Do not start before October 06, 2023., Disp: 30 tablet, Rfl: 0 potassium citrate CR (Urocit-K-10) 10 mEq ER tablet, Take 10 mEq by mouth 2 times daily. (Patient not taking: Reported on 05/06/2024), Disp: , Rfl: spironolactone (Aldactone) 50 MG tablet, Take 50 mg by mouth daily., Disp: , Rfl: tamsulosin (Flomax) 0.4 MG 24 hr capsule, Take 0.4 mg by mouth daily., Disp: , Rfl: ticagrelor (Brilinta) 90 MG tablet, Take 1 tablet (90 mg) by mouth 2 times daily., Disp: 90 tablet, Rfl: 1 traMADol (Ultram) 50 MG tablet, Take 50 mg by mouth., Disp: , Rfl: Social History Tobacco Use Smoking status: Never [...] Examination: BP Readings from Last 3 Encounters: 05/06/24 (!) 146/58 04/27/24 122/60 01/06/24 110/72 Wt Readings from Last 3 Encounters: 04/27/24 (!) 142 kg (312 lb) 01/06/24 (!) 142 kg (312 lb) BP 114/65 (BP Location: Right arm) Pulse 70 Temp 36.5 C (97.7 F) Wt (!) 141 kg (310 lb) BMI 45.78 kg/m Neurological Examination: Higher Functions: Mental Status Exam: Level of Alertness:Awake Orientation: "person","place","time", Memory:normal Fund of Knowledge: normal Attention/Concentration: normal [...] finger to nose, Tremors not present, Gait Did not test Imaging reviewed with patient: Angiogram, CTA, MRI from [place]. Impression/Plan: 59 yo man with recurrent right hemispheric strokes. - Right MCA severe stenosis, was doing well on medical management (triple therapy, plavix non-responder), but had a stroke while medications were on hold for lung biopsy. - CTA 09/2024 shows complete occlusion of his right MCA - Medications have been resumed, but has episodes of left face droop nearly weekly that completely resolve. - Bilateral ICA stenosis, < 50%. Left vertebral and basilar artery stenosis. - Currently on Eliquis (atrial fibrillation), ASA and brilinta - New diagnosis of idiopathic pulmonary fibrosis. We discussed his stroke risk factor and also these episodes in detail. We also discussed his chronic progressive lung diagnosis, and limited surgical options given that problem. At this time it appears that the right MCA is completely occluded, in which case he is not a candidate for endovascular repair. I would like to confirm this with CTA and potentially remove brilenta if the MCA is truly occluded. Regarding the episodes of left face droop and slurred speech. Could be TIA given fluctuations in BP or oxygen levels, recrudescence of old symptoms, transient ischemia or ictal in origin. Will obtain outpatient EEG for ictal consideration. In any case Mr. Leos is at very high risk of stroke, but he is unfortunately not a good candidate for endovascular or surgical treatment options given his other medical issues. He has limited treatment options for TIA, but do recommend normotension, normothermia, normovolemia, and continued oxygen support. May start AED if felt there is any ictal component. I do think that palliative care may be a reasonable option given his limited treatment options, and the family expressed understanding. We are available for tele-visits or conversations with other treatment teams pending his guarded clinical course. The patient was also given the option to obtain a second opinion for the right MCA issue and they will contact the office if they would like to pursue this. MD Carlotta I spent 40 minutes with the patient discussing clinical history, imaging, and treatment options (medical, endovascular and surgical). They expressed understanding and agreement with the plan. Patient Education: >= 3 elements of education during at least one visit within a 12 month period - lifestyle, physical activity, diet and medications. Life Style Modification: Yes Smoking cessation counseling: Yes documented in this encounter [facility] 01-15-2025 History of Presen t illness Narrative Images from the original note were not included. Department of Medicine Division of Pulmonary, Critical Care, and Sleep Medicine Consultation [address] [facility] Patient was referred by his PCP (Dr. [...] Day after had TIAs. On prednisone 20mg. 01/15/2025: Since his last visit, patient continues to progress. He feels fatigue after stopping the prednisone with low energy. Continues to get more short of breath on exertion. His exercise capacity is decreased and O2 requirement going up. He had more TIA episodes and was admitted to the hospital. There was also concern for groin abscess and sepsis. He continues to have epistaxis episodes on his anticoagulation therapy. He continues to take his pirfenidone. Patient had repeat breathing test, 6MWT done (results below). Prior Pulmonary History: Patient has no history of recurrent infections, or lung disease as a child. S/p Left video-assisted thoracoscopic surgery total pulmonary decortication in 2015 at [facility]. He was hospitalized in [place] from 03/02-03/04/2024 for acute hypoxic respiratory failure. [...] liver nodule (stable compared to 2023) PFTs: 01/15/2025 -> Ratio of 0.85/FEV1 1.99L (67%)(no BD response)/FVC 2.32L (67%)/DLCO 37->62% 08/18/2024 -> Ratio of 0.87/FEV1 2.27L (76%) (no BD response)/FVC 2.6L (69%)/DLCO 34% 07/20/2024 -> Ratio of 0.59/FEV1 2.3L (67%)(no BD response)/FVC 2.69L (61%)/DLCO 36% 05/15/2024 -> Ratio of 0.87/FEV1 2.19L (63%)(no BD response)/FVC 2.52L (56%)/TLC 3.9L (57%)/RVtoTLC ratio 0.35/DLCO 36->67% 6MWTs: 01/15/2025 -> needed 10L HFNC to keep SpO2 over 85% 08/18/2024 ->on 8L, 130m. Peak SpO2 of [...] Review Audit Reviewed by Suly Johnston MA (Sr. Logistics Analyst) on 01/15/25 at 1358 Medication Order Taking? Sig Documenting Provider Last Dose Status acetaminophen (Tylenol) 500 mg tablet [id number] Yes 2 tablets (1,000 mg). Historical Provider, Active albuterol 2.5 mg /3 mL (0.083 %) nebulizer solution [id number] Take 3 mL (2.5 mg) by nebulization every 4 hours if needed for wheezing or shortness of breath. Rosalino Padron MD Active albuterol 90 mcg/actuation inhaler [id number] INHALE 2 PUFFS BY MOUTH EVERY 4 HOURS NEEDED FOR SHORTNESS OF BREATH OR WHEEZING Historical ProviderMD Active ALPRAZolam (Xanax) 0.25 mg tablet [id number] Yes TAKE 1 tablet by mouth two times daily, as needed Historical ProviderMD Active amLODIPine (Norvasc) 5 mg tablet [id number] Take 1 tablet (5 mg) by mouth once daily. Historical ProviderMD Active aspirin 325 mg tablet [id number] Take 1 tablet (325 mg) by mouth once daily. Historical ProviderMD Active atorvastatin (Lipitor) 80 mg tablet [id number] Take 1 tablet (80 mg) by mouth once daily at bedtime. Historical ProviderMD Active betamethasone, augmented, (Diprolene) 0.05 % lotion [id number] Historical ProviderMD Active bismuth subsalicylate (Pepto Bismol) 262 mg chewable tablet [id number] Historical ProviderMD Active Brilinta 90 mg tablet [id number] 1 tablet (90 mg). Historical ProviderMD Active busPIRone (Buspar) 10 mg tablet [id number] Take 1 tablet (10 mg) by mouth 3 times a day. Historical ProviderMD Active cephalexin (Keflex) 500 mg capsule [id number] Yes Take 1 capsule (500 mg) by mouth 3 times a day. Historical ProviderMD Active clopidogrel (Plavix) 75 mg tablet [id number] Take 1 tablet (75 mg) by mouth early in the morning.. Historical ProviderMD Active dapagliflozin propanediol (Farxiga) 5 mg [id number] Take 1 tablet (5 mg) by mouth once daily. Historical ProviderMD Active Dexcom G6 Sensor device [id number] USE DIRECTED FOR CONTINUOUS BLOOD GLUCOSE MONITORING, CHANGE SENSOR EVERY 10 DAYS Historical ProviderMD Active doxycycline (Adoxa) 100 mg tablet [id number] Yes Take 1 tablet (100 mg) by mouth every 12 hours. Historical ProviderMD Active DULoxetine (Cymbalta) [address] capsule [id number] Take 1 capsule (60 mg) by mouth once daily. Gloria Rahman MD Active DULoxetine [address] capsule [id number] Yes Take 2 capsules (80 mg) by mouth early in the morning.. Historical ProviderMD Active Eliquis 5 mg tablet [id number] Take 1 tablet (5 mg) by mouth 2 times a day. Historical ProviderMD Active ergocalciferol (Vitamin D-2) 1250 mcg (50,000 units) capsule [id number] Take 1 capsule (1.25 mg) by mouth. Historical ProviderMD Active fenofibrate (Tricor) 54 mg tablet [id number] Take 1 tablet (54 mg) by mouth once daily. Historical MD Lacey Active fenofibrate micronized (Lofibra) 134 mg capsule [id number] Take 1 capsule (134 mg) by mouth early in the morning.. Historical ProviderMD Active ferrous sulfate 325 mg (65 mg elemental) tablet [id number] Yes 1 tablet. Historical ProviderMD Active furosemide (Lasix) 40 mg tablet [id number] Take 1 tablet (40 mg) by mouth. Historical ProviderMD Active glimepiride (Amaryl) 4 mg tablet [id number] Take 1 tablet (4 mg) by mouth early in the morning.. Historical ProviderMD Active glipiZIDE (Glucotrol) 5 mg tablet [id number] Take 1 tablet (5 mg) by mouth. Historical ProviderMD Active HumuLIN R U-500, Conc, Insulin 500 unit/mL CONCENTRATED injection [id number] Historical ProviderMD Active ipratropium (Atrovent) 42 mcg (0.06 %) nasal spray [id number] USE 2 SPRAYS NASALLY 3 TIMES A DAY NEEDED Historical ProviderMD Active Jardiance 25 mg [id number] Take 1 tablet (25 mg) by mouth once daily. Historical ProviderMD Active levothyroxine (Synthroid, Levoxyl) 112 mcg tablet [id number] Take 1 tablet (112 mcg) by mouth once daily. Patient not taking: Reported on 11/13/2024 Historical MD Lacey Active levothyroxine (Synthroid, Levoxyl) 125 mcg tablet [id number] Take 1 tablet (125 mcg) by mouth early in the morning.. Take on an empty stomach at the same time each day, either 30 to 60 minutes prior to breakfast Historical ProviderMD Active lisinopril 40 mg tablet [id number] Take 1 tablet (40 mg) by mouth once daily. Historical ProviderMD Active metFORMIN (Glucophage) 500 mg tablet [id number] Take 1 tablet (500 mg) by mouth 2 times daily (morning and late afternoon). Gloria Rahman MD Active metoprolol succinate XL (Toprol-XL) 100 mg 24 hr tablet [id number] TAKE 1 TABLET BY MOUTH DAILY for heart Historical ProviderMD Active Mucinex DM 60-1,200 mg tablet extended release 12 hr [id number] Take 1 tablet by mouth every 12 hours. Gloria Rahman MD Active nitrofurantoin, macrocrystal-monohydrate, (Macrobid) 100 mg capsule [id number] Yes Take 1 capsule (100 mg) by mouth every 12 hours. Gloria Rahman MD Active Nystop 100,000 unit/gram powder [id number] Yes APPLY 1 GRAM TOPICALLY TWICE DAILY NEEDED Gloria Rahman MD Active oxyBUTYnin (Ditropan) 5 mg tablet [id number] Yes Take 1 tablet (5 mg) by mouth every 12 hours. Gloria Rahman MD Active oxyCODONE-acetaminophen (Percocet) 5-325 mg tablet [id number] Take 1 tablet by mouth 2 times a day as needed. Gloria Rahman MD Active pantoprazole (ProtoNix) 40 mg EC tablet [id number] Take 1 tablet (40 mg) by mouth. Gloria Rahman MD Active pirfenidone (Esbriet) 267 mg tablet tablet [id number] Take 1 tablet (267 mg) by mouth 3 times a day for 7 days, THEN 2 tablets (534 mg) 3 times a day for 7 days, THEN 3 tablets (801 mg) 3 times a day. Rosalino Padron MD 12/30/24 2359 pirfenidone (Esbriet) 267 mg tablet tablet [id number] Take 3 tablets (801 mg) by mouth 3 times a day. Rosalino Padron MD Active potassium citrate CR (Urocit-K-10) 10 mEq ER tablet [id number] Take 1 tablet (10 mEq) by mouth twice a day. Gloria Rahman MD Active predniSONE (Deltasone) 10 mg tablet [id number] Yes TAKE 4 TABLETS BY MOUTH FOR 1 DAY, THEN 3 TABS FOR 3 DAYS, THEN 2 TABS FOR 3 DAYS, THEN RESUME YOUR NORMAL 15MG DAILY DOSING Gloria Rahman MD Active predniSONE (Deltasone) 20 mg tablet [id number] Take 0.5 tablets (10 mg) by mouth early in the morning.. Patient not taking: Reported on 11/13/2024 Gloria Rahman MD Active predniSONE (Deltasone) 20 mg tablet [id number] Take 2 tablets (40 mg) by mouth once daily. Rosalino Padron MD Active predniSONE (Deltasone) 5 mg tablet [id number] Take 4 tablets (20 mg) by mouth once daily for 30 days, THEN 3 tablets (15 mg) once daily for 30 days, THEN 2 tablets (10 mg) once daily for 30 days, THEN 1 tablet (5 mg) once daily for 14 days. Rosalino Padron MD Active rosuvastatin (Crestor) 40 mg tablet [id number] Take 1 tablet (40 mg) by mouth early in the morning.. Historical ProviderMD Active sennosides-docusate sodium (Daysi-Colace) 8.6-50 mg tablet [id number] Yes docusate sodium 50 mg / sennosides, snf 8.6 mg oral tablet (3 sources) Start: 12-17-2024 Historical ProviderMD Active spironolactone (Aldactone) 50 mg tablet [id number] Take 1 tablet (50 mg) by mouth once daily. Historical ProviderMD Active tamsulosin (Flomax) 0.4 mg 24 hr capsule [id number] Take 1 capsule (0.4 mg) by mouth once daily. Historical ProviderMD Active traMADol (Ultram) 50 mg tablet [id number] Take 1 tablet (50 mg) by mouth. Historical ProviderMD Active Drug Allergies/Intolerances: Allergies Allergen Reactions Metoclopramide Anaphylaxis and Shortness of breath Review of Systems: All other review of systems are negative and/or non-contributory. Physical Examination: Vitals: 01/15/25 1355 Temp: 36.4 C (97.6 F) Constitutional: Alert and oriented. In no acute [...] most consistent with usual interstitial pneumonia (UIP). On Esbriet 01/15/2025 will submit prior auth for Amy. # On Esbriet: -high risk drug that requires frequent monitoring for side effects. # Prednisone therapy: Ordered on 08/07/2024. He felt well on 20mg daily. We will prescribed 20mg for 1 month, 15mg for 1month, 10mg for 1 month, then 5 mg for 2 weeks then stop. Weaning off given UIP on biopsy Developped severe fatigue after weaning probably related to adrenal insufficiency. Will restart at 10mg on 01/15/2025 # Diastolic Heart failure and PAH evaluation: -difficult to assess volume status given body habitus -will obtain echocardiogram to screen for PAH # Chronic hypoxic respiratory failure: -needs 4L at rest and 10L with exertion -multifactorial # KIANNA: -not compliant with his PAP therapy Encourage to be more compliant with his PAP # Obesity: -BMI > 40 Encouraged weight loss Follow-up: 2-3 months once above completed Rosalino Padron MD 01/15/2025 documented in this encounter [facility] Work Phone: 01-15-2025 Instructions Rosalino Padron MD - 01/15/2025 2:00 PM EDT Krunal Leos it was pleasure seeing you in clinic today. We discussed the following: We will add a new medication to your regimen called Amy You will restart 10mg of prednisone daily We will see you back in clinic in 12 weeks with repeat high resolution CT scan For scheduling purposes: Call to schedule a breathing or a walking test Call [phone] to schedule EKG's, Echocardiograms and Cardiopulmonary Stress Tests. Call [phone] to schedule Radiology tests such as Nuclear Medicine Stress Tests, CT Scans, and MRI's. Should you have any questions Please Call our pulmonary nurse Linda Marie at [phone] or my assistant chief nursing officer Puneet Leone at [phone] documented in this encounter [facility] Work Phone: 01-07-2025 Telephone encounter Note Lvm to speak with patient about medication. Left call back. [facility] 01-07-2025 Miscellaneous Notes Lvm to speak with patient about medication. Left call back. I am happy to change order when they get back to you Returning call to patient. They said that their insurance will stop paying for Brilinta January 30 2025. I called to see if they knew if they will cover the generic version or not. No answer LVM documented in this encounter [facility] 12-31-2024 Telephone encounter Note I am happy to change order when they get back to you [facility] 12-31-2024 Miscellaneous Notes I am happy to change order when they get back to you Returning call to patient. They said that their insurance will stop paying for Brilinta January 30 2025. I called to see if they knew if they will cover the generic version or not. No answer LVM documented in this encounter [facility] 12-23-2024 Radiology Diagnostic study note [facility] 12-23-2024 Discharge summary Note Date/Time December 24, 2024 12:32am [facility] Medical Records Department [address] [place] [address] Emergency Department Summary 12/23/24 MR#: [id number] Acct: [id number] Name: KRUNAL LEOS Rep #:[id number] 23 : 1965 59 From: Juan Diego Davis DO PCP: Dr. Brandt Winter MD Status:DEP ER Location: ED HPI History of Present Illness Chief Complaint: Neuro S/Sx Informant: patient and spouse/S.O. Narrative Narrative: Patient is a 59-year-old male with past medical history of insulin-dependent type 2 diabetes multiple TIAs for which he takes aspirin Brilinta and Eliquis aswell as congestive heart failure and hypothyroidism. states that today thepatient reported "not feeling well" and then she noticed that he had left-sided facial droop. She states that this occurred at roughly 8 PM. She states the symptoms lasted at most 20 minutes and then completely resolved. Patient and both report he has not had any recurrent neurologic symptoms since that time. Patient does state that he overall feels "unwell" but that there is been no fevers and he denies any cough congestion nausea vomiting diarrhea or dysuria. However because of his general unwell feeling as well as the changes that were consistent with TIA he presents for evaluation [facility] Medical History (Updated 12/24/24 @ 06:[address] 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 Chronic respiratory failure with hypoxia Paroxysmal atrial fibrillation Chronic respiratory failure Chronic ulcer of thigh with fat layer exposed Microalbuminuria due to type 2 diabetes mellitus Hypoxemia Rheumatoid factor positive Hyperlipidemia Elevated troponin 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 with hyperglycemia Renal insufficiency Interstitial lung disease Ischemic cerebrovascular accident (CVA) CHF (congestive heart failure) KIANNA (obstructive sleep apnea) Presence of insulin pump CKD (chronic kidney disease) Hypothyroidism Essential (primary) hypertension Diabetes Acute hypoxemic respiratory failure Chronic diastolic CHF (congestive heart failure) Obesity Exertional shortness of breath Iron deficiency anemia due to chronic blood loss Morbid obesity with BMI of 45.0-49.9, adult Atherosclerotic heart disease of [place] coronary artery without angina pectoris Mini stroke [...] left eye Anemia Non-smoker Atrial fibrillation Hypertension Polyneuropathy due to type 2 diabetes mellitus [...] depres wanda 04/17/18 09/26/24 History release (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 Instructions: RECIEVING INFUSIONS metoprolol succinate 100 mg 100 mg PO DAILY heart #90 tabs 03/27/24 09/26/24 Rx tablet,extended release 24 hr lisinopril 40 mg tablet 40 mg PO DAILY blood pressur e 04/12/24 09/26/24 History pantoprazole 40 mg tablet,delayed 40 mg PO BID acid re flux #60 tabs 07/22/24 09/26/24 Rx release (Protonix) empagliflozin 25 mg tablet 25 mg PO DAILY diabetes #30 tabs 08/12/24 09/26/24 Rx (Jardiance) apixaban 5 mg tablet (Eliquis) 5 mg PO BID blood thinn er #180 tabs 08/31/24 09/26/24 Rx buspirone 10 mg tablet 10 mg PO BID Anxiety 5 09/26/24 History fenofibrate 54 mg tablet 134 mg PO QDAY 10/27/24 Unkn own History albuterol sulfate 2.5 mg/3 mL 2.[address] N 11/25/24 Unknown History (0.083 %) solution for nebulization shortness of breat h or wheezing levothyroxine 125 mcg tablet 125 mcg PO QDAY 11/25/24 Unknown History pirfenidone 267 mg tablet 801 mg PO TID breathing 10/31 10/23 Unknown History acetaminophen 500 mg tablet 1,000 mg (2 x 500 mg) PO Q 8 PRN 11/28/24 Unknown Rx pain #0 tabs prednisone 10 mg tablet 10 mg PO DAILY #15 tabs 11/01 Unknown Rx hydrochlorothiazide 25 mg tablet 25 mg PO QAM 12/16/24 Unknown History oxycodone-acetaminophen 5 mg-325 1 tab PO TID PRN PRN pain 12/17/24 Unknown History mg tablet prednisone 5 mg tablet 5 mg PO DAILY 12/17/24 Unkno wn History rosuvastatin 40 mg tablet 40 mg PO DAILY 12/17/24 Unkn own History sennosides 8.6 mg-docusate sodium 1 tab PO DAILY const ipation 12/17/24 Unknown History 50 mg tablet (Senexon-S) ticagrelor 90 mg tablet 90 mg PO BID 12/17/24 Unknow n History aspirin 81 mg chewable tablet 324 mg PO BREAKFAST 12/01 07/24 Unknown History cephalexin 500 mg capsule 500 mg PO TID 7 days #21 cap s 12/23/24 Unknown Rx furosemide 40 mg tablet (Lasix) 80 mg PO QDAY diuretic 12/23/24 Unknown History Allergy/AdvReac Type Severity Reaction Status Date / Time metoclopramide HCl (From Allergy Severe Anaphylaxis Verified 12/23/24 20:31 Reglan) Family History Brother Heart disease Mother CVA (cerebral vascular accident) Hypertension Rheumatoid arthritis Father Diabetes Other Alcohol abuse ulcer disease Surgical History History of cardiac catheterization History of lymph node excision History of left heart catheterization (2010) Hx of nephrolithotomy with removal of calculi History of thoracentesis (2016) Social History (Updated 11/26/24 @ 13:29 by Deysi Kelly) household members: spouse and none pets and animals: Yes Smoking Status: Never smoker Electronic Cigarette Use: not used second hand exposure: No alcohol intake: never substance use type: does not use what type of physical activity do you participate in: none ROS ROS ED Constitutional Constitutional ED: Reports other Details: Positive generalized fatigue ; Denies chills or fever(s) Eyes Eyes: Denies change in vision ENT ENT ED: Denies rhinorrhea or sore throat Cardiovascular Cardiovascular: Denies chest pain Respiratory/Chest Respiratory/Chest: Denies cough or dyspnea Gastrointestinal Gastrointestinal: Denies abdominal pain, diarrhea, nausea or vomiting Genitourinary Genitourinary ED: Denies dysuria Musculoskeletal Musculoskeletal: Denies myalgias Integumentary Denies rash Neurologic Neurologic: Reports weakness; Denies headache(s) Hematologic/Lymphatic Hematologic/Lymphatic: Reports easy bleeding and easy bruising EXAM Physical Exam Const Vital Signs: 12/23/24 20:30 12/23/24 21:30 12/23/24 22:00 Temperature 97.9 F Temperature Source Oral Pulse Rate 76 71 74 Respiratory Rate 18 17 18 Blood Pressure 74/55 L 92/55 L 119/57 L Blood Pressure Mean 61 67 77 Pulse Ox 98 98 99 Oxygen Delivery Method Nasal Cannula Room Air Nasal Cannula Oxygen Flow Rate (L/min) 4 4 12/23/24 23:00 12/23/24 23:19 12/24/24 00:00 Temperature 98 F Temperature Source Oral Pulse Rate 72 76 84 Respiratory Rate 19 H 18 16 Blood Pressure 127/60 H 117/56 L 109/59 L Blood Pressure Mean 82 76 75 Pulse Ox 98 98 100 Oxygen Delivery Method Room Air Room Air Room Air Oxygen Flow Rate (L/min) 12/24/24 00:02 Temperature 98 F Temperature Source Pulse Rate 86 Respiratory Rate 15 Blood Pressure 105/59 L Blood Pressure Mean 74 Pulse Ox 99 Oxygen Delivery Method Oxygen Flow Rate (L/min) Positive well nourished, well developed and obese General Appearance ED: well developed and pallor Nutritional Appearance: obese HEENT HEENT Narrative: Normocephalic atraumatic No tongue or lip swelling no oral lesions no airway edema or compromise There is mild cobblestoning in the posterior pharynx consistent with sinus drainage; however no secondary findings to suggest infection Eyes PERRL and EOMs intact bilaterally General Eye ED: Negative for scleral icterus Neck supple and no JVD Neck Narrative: No nuchal rigidity or meningeal signs Resp normal respiratory effort Resp Narrative: Breath sounds are diminished throughout with diffuse rhonchi consistent with history of idiopathic pulmonary fibrosis No signs of respiratory distress Cardio regular rate and regular rhythm Rate: other Other Details: Radial and carotid pulses are equal and symmetric GI normal to inspection, nondistended, normoactive bowel sounds, non-tender, non-distended and no masses GI Narrative: No voluntary guarding or rigidity or pulsatile mass. No peritoneal signs. Auscultation: normoactive bowel sounds Palpation: soft Extremity Extremity Narrative: There is trace to +1 pitting edema to the bilateral lower extremities that is equal and symmetric Neuro oriented x3, CN's II-XII intact bilaterally and no sensory deficits noted Neuro Narrative: GCS of 15 Cranial nerves II through XII are grossly intact without focal neurologic deficit No pronator drift no dysmetria no truncal ataxia NIH stroke scale score of 0 Sensorium / Orientation: alert Motor Exam: strength 5/5 throughout Psych mental status grossly normal Skin no rashes or lesions noted Skin Narrative: Capillary fill is less than 3 seconds General Skin Exam: pallor; Negative for jaundice MDM MDM MDM Narrative Medical decision making narrative: Patient arrived to the ER awake and alert with spontaneous resolution of his neurologic symptoms. However his blood pressure was soft/low. The patient has known TIAs and his history is consistent with a repeat TIA. However he is on aspirin Brilinta and Eliquis and he has a normal neurologic exam at this time. Therefore there is no need to activate a stroke alert. I will obtain a head CT to ensure there is no secondary bleed or mass as the cause of his symptoms. However as he reports feeling unwell and his blood pressure is soft there is concern for an infection or potential sepsis. Patient does have paleness to hisskin and it could be related to acute blood loss anemia or acute kidney injury. Therefore basic labs were obtained along with urine sample and viral swab. White count is normal there is no left shift. His hemoglobin is slightly down at 10 but chart review reveals this is chronic in nature. Creatinine is at baseline as well and there is no clinically significant electrolyte abnormality. TSH is within normal limits going against myxedema coma or thyroid dysfunction. Urine sample shows questionable infection as it does have bacteria and white blood cells but there is also skin cells present. At this time as he is a diabetic and technically immunosuppressed and he reports feeling unwell I would err on the side of caution and treat him for UTI but the urine also be sent for culture. At this time his blood pressure has improved he remains afebrile he issatting 98 to 100% on his normal oxygen. He has no also not had any further bouts of neurologic finding. As his recurrent TIAs are chronic and he is on medication for it there is no need for admission as he can simply continue the aspirin Brilinta and Plavix. As his workup today reveals no signs of acute blood loss anemia acute kidney injury or urosepsis I do not feel there is need for inpatient workup and he is otherwise safe for discharge with antibiotics. This plan of care was discussed with the patient and family and they are agreeable to it and therefore will be discharged at this time History & Record Review Discussion w/independent historian: Patient and Significant other Lab Data Attestation: I reviewed the patient's lab results. Labs: Laboratory Results - last 24 hr 12/23/24 12/23/24 12/23/24 21:49 22:15 22:50 WBC 7.4 RBC 4.07 L Hgb 10.3 L Hct 33.7 L MCV 82.8 MCH 25.3 L MCHC 30.6 L RDW Std Deviation 62.6 H RDW Coeff of Gavi 21.0 H Plt Count 223 MPV 10.1 Immature Gran % (Auto) 1.200 H Neut % (Auto) 68.6 Lymph % (Auto) 16.1 L Ware % (Auto) 10.4 H Eos % (Auto) 3.0 Baso % (Auto) 0.7 Absolute Neuts (auto) 5.1 Absolute Lymphs (auto) 1.19 Nucleated RBC % 0 Differential Comment SCANNED Platelet Estimate ADEQUATE Polychromasia 1+ Anisocytosis 2+ Target Cells RARE Tear Drop Cells RARE Ovalocytes 2+ Sodium 139 Potassium 3.5 Chloride 99 Carbon Dioxide 24.8 Anion Gap 15 BUN 23 H Creatinine 1.30 H Estim Creat Clear Calc 84.42 Est GFR (MDRD) Non-Af 63 BUN/Creatinine Ratio 17.4 Glucose 228 H Calcium 9.2 Magnesium 2.1 TSH 1.160 Urine Color Yellow Urine Clarity Turbid Urine pH 6.0 Ur Specific [place] 1.015 Urine Protein 30 H Urine Glucose (UA) 1000 H Urine Ketones Negative Urine Occult Blood 50 H Urine Nitrite Negative Urine Bilirubin Negative Urine Urobilinogen Normal Ur Leukocyte Esterase 500 H Urine RBC 5-10 SEEN Urine WBC >100 SEEN Ur Squamous Epith Cells 10-25 SEEN Urine Bacteria 2+ Urine Mucus 0 SEEN Urine Yeast 2+ Radiography Diagnostic Testing: Clinical Impression(s) from Imaging Studies Brain CT 12/23/24 22:06 IMPRESSION: No acute intracranial abnormality. Chronic and ancillary findings as above. 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, Diabetes mellitus, type II, Hypothyroidism, Idiopathic pulmonary fibrosis Instructions: Urinary Tract Infections in Men, TIA Dc Prescriptions: New cephalexin 500 mg capsule 500 mg PO TID 7 Days Qty: 21 0RF No Action (DME) Dexcom G6 Document Photographer Misc See Rx Instructions .ROUTE .MEDSUPPLY Qty: 1 0RF Rx Instructions: As directed (DME) infusion set for insulin pump Infusion Set See Rx Instructions .Route Rx Instructions: As directed (DME) insulin pump controller Misc See Rx Instructions .Route Rx Instructions: As directed fenofibrate 54 mg tablet 134 mg PO QDAY albuterol sulfate 2.5 mg /3 mL (0.083 %) solution for nebulization 2.5 mg inhalation Q4H PRN (Reason: shortness of breath or wheezing) levothyroxine 125 mcg tablet 125 mcg PO QDAY pirfenidone 267 mg tablet 801 mg PO TID hydrochlorothiazide 25 mg tablet 25 mg PO QAM tamsulosin 0.4 MG capsule 0.4 mg PO DAILY duloxetine [Cymbalta] 60 MG capsule,delayed release(DR/EC) 60 mg PO DAILY buspirone 10 mg tablet 10 mg PO BID oxycodone-acetaminophen 5-325 mg tablet 1 tab PO TID PRN PRN (Reason: pain) sennosides-docusate sodium [Senexon-S] 8.6-50 mg tablet 1 tab PO DAILY prednisone 5 mg tablet 5 mg PO DAILY rosuvastatin 40 mg tablet 40 mg PO DAILY ticagrelor 90 mg tablet 90 mg PO BID ferrous sulfate [Feosol] 325 mg (65 mg iron) tablet 325 mg PO DAILY lisinopril 40 mg tablet 40 mg PO DAILY acetaminophen 500 mg Tablet 1,000 mg PO Q8 PRN (Reason: pain) Qty: 0 0RF prednisone 10 mg tablet 10 mg PO DAILY Qty: 15 0RF Rx Instructions: 4 tabs for 1 day, then 3 tabs for 3 days, then 2 tabs for 3 days, then resume your normal 15mg daily dosing. furosemide [Lasix] 40 mg tablet 80 mg PO QDAY Rx Instructions: Take extra 40 mg dose at 5 PM for increased leg swelling or weight gain 5 pounds in 1 week. aspirin 81 mg Tablet,Chewable 324 mg PO BREAKFAST (DME) Dexcom G6 Transmitter Device See Rx [...] 100 mg PO DAILY Qty: 90 3RF pantoprazole [Protonix] 40 mg tablet,delayed release (DR/EC) 40 mg PO BID Qty: 60 3RF Jardiance 25 mg tablet 25 mg PO DAILY Qty: 30 5RF Eliquis 5 mg tablet 5 mg PO BID Qty: 180 3RF Primary Care Provider: Brandt Winter Referrals: Brandt Winter MD [Primary Care Provider, Family Practice] Activity Restrictions/Additional Instructions: Your history and exam is consistent with a transient ischemic attack but your CTreveals no sign of brain bleed or mass. Continue your Eliquis Brilinta and aspirin secondary to this history. Your workup today showed changes concerning for a urinary tract infection. Therefore please take the antibiotic as directed. If you have worsening of symptoms or any further concerns return to the ER for repeat evaluation. Print Language: Argentine Disposition Disposition: Home, Self Care Discharge Date/Time: 12/24/24 00:32 What to do if you have Problems For any increased pain, shortness of breath, bleeding, nausea or vomiting, chestpain, or any unexpected problems, contact your Primary Care Provider. Call [facility] ([phone]) or report to the closest Emergency Room. Call 911 if necessary. 12/24/24 0601 <Electronically signed by Juan Diego Davis DO> Cosigner Signature (if applicable): CC: Dr. Brandt Winter MD ~ Signed [facility] Work Phone: [phone] 134-264709-19-2025 History and physical note Author Marjorie Hernandez [facility] Note Date/Time December 18, 2024 5:21pm [facility] [address] [place] [address] H&P Exam - Wound Care 12/17/24 1216 MR#: [id number] Acct: [id number] Name: KRUNAL LEOS Rep #:[id number] : 1965 59 From: Marjorie wylie MD PCP: Dr. Brandt Winter MD Status:REG RC R Location: History of Present Illness Date of Service: 12/17/24 Chief Complaint: Right thigh ulcer. History of abscess. History of Wound: Mr. Leos is a 59-year-old who presents to the wound center due to nonhealing right thigh ulcer. Noted a few weeks ago and per patient, started as a boil. Recently and subsequently admitted and managed for sepsis thought to be due to right lower extremity cellulitis. He states that he had the area of abscess expressed during his hospital admission. Following antibiotics, there was improvement in his overall health and he was discharged home. He has also been applying an antifungal powder to area of redness in the thigh which is chronic. He has noted improvement with this. He presents here due to non-closure of right sided thigh ulcer. History of diabetes mellitus type 2, most recent A1c was at 9.6.. Also history of idiopathic pulmonary fibrosis currently on oxygen. No history of tobacco use. Appetite is good. Feels well overall, no chills, fever or changes in bowel habit reported. [facility] Medical History (Updated 12/17/24 @ 21:[address] 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 Chronic respiratory failure with hypoxia Paroxysmal atrial fibrillation Chronic respiratory failure Chronic ulcer of thigh with fat layer exposed Microalbuminuria due to type 2 diabetes mellitus Hypoxemia Rheumatoid factor positive Hyperlipidemia Elevated troponin 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 with hyperglycemia Renal insufficiency Interstitial lung disease Ischemic cerebrovascular accident (CVA) CHF (congestive heart failure) KIANNA (obstructive sleep apnea) Presence of insulin pump CKD (chronic kidney disease) Hypothyroidism Essential (primary) hypertension Diabetes Acute hypoxemic respiratory failure Chronic diastolic CHF (congestive heart failure) Obesity Exertional shortness of breath Iron deficiency anemia due to chronic blood loss Morbid obesity with BMI of 45.0-49.9, adult Atherosclerotic heart disease of [place] coronary artery without angina pectoris Mini stroke [...] left eye Anemia Non-smoker Atrial fibrillation Hypertension Polyneuropathy due to type 2 diabetes mellitus [...] depres wanda 04/17/18 09/26/24 History release (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 Instructions: RECIEVING INFUSIONS metoprolol succinate 100 mg 100 mg PO DAILY heart #90 tabs 03/27/24 09/26/24 Rx tablet,extended release 24 hr lisinopril 40 mg tablet 40 mg PO DAILY blood pressur e 04/12/24 09/26/24 History pantoprazole 40 mg tablet,delayed 40 mg PO BID acid re flux #60 tabs 07/22/24 09/26/24 Rx release (Protonix) empagliflozin 25 mg tablet 25 mg PO DAILY diabetes #30 tabs 08/12/24 09/26/24 Rx (Jardiance) apixaban 5 mg tablet (Eliquis) 5 mg PO BID blood thinn er #180 tabs 08/31/24 09/26/24 Rx buspirone 10 mg tablet 10 mg PO BID Anxiety 5 09/26/24 History fenofibrate 54 mg tablet 134 mg PO QDAY 10/27/24 Unkn own History albuterol sulfate 2.5 mg/3 mL 2.[address] N 11/25/24 Unknown History (0.083 %) solution for nebulization shortness of breat h or wheezing levothyroxine 125 mcg tablet 125 mcg PO QDAY 11/25/24 Unknown History pirfenidone 267 mg tablet 267 mg PO TID breathing 10/31 10/23 Unknown History acetaminophen 500 mg tablet 1,000 mg (2 x 500 mg) PO Q 8 PRN 11/28/24 Unknown Rx pain #0 tabs aspirin 81 mg chewable tablet 81 mg PO BREAKFAST #0 ta bs 11/28/24 Unknown Rx prednisone 10 mg tablet 10 mg PO DAILY #15 tabs /3 Unknown Rx furosemide 40 mg tablet (Lasix) 40 mg PO QDAY diuretic #270 tabs 12/08/24 Unknown Rx hydrochlorothiazide 25 mg tablet 25 mg PO QAM 12/16/24 Unknown History oxycodone-acetaminophen 5 mg-325 1 tab PO TID PRN PRN pain 12/17/24 Unknown History mg tablet prednisone 5 mg tablet mg PO 12/17/24 Unknown Histo ry rosuvastatin 40 mg tablet 40 mg PO DAILY 12/17/24 Unkn own History sennosides 8.6 mg-docusate sodium 1 tab PO DAILY const ipation 12/17/24 Unknown History 50 mg tablet (Senexon-S) ticagrelor 90 mg tablet 90 mg PO BID 12/17/24 Unknow n History Allergy/AdvReac Type Severity Reaction Status Date / Time metoclopramide HCl (From Allergy Severe Anaphylaxis Verified 12/17/24 14:05 [place]) Family History Brother Heart disease Mother CVA (cerebral vascular accident) Hypertension Rheumatoid arthritis Father Diabetes Other Alcohol abuse ulcer disease Surgical History History of cardiac catheterization History of lymph node excision History of left heart catheterization (2009) Hx of nephrolithotomy with removal of calculi History of thoracentesis (2015) Social History (Updated 11/26/24 @ 13:29 by Deysi Kelly) household members: spouse and none pets and animals: Yes Smoking Status: Never smoker Electronic Cigarette Use: not used second hand exposure: No alcohol intake: never substance use type: does not use what type of physical activity do you participate in: none ROS Constitutional Constitutional: Denies daytime sleepiness, difficulty sleeping, fatigue, fever(s), headache(s), increased appetite or lethargy Eyes Eyes: Denies change in eye color, change in vision, discharge from eye(s), double vision, dry eyes or erythema ENT HEENT: Denies disequillibrium, dizziness, dry mouth, dysphagia, halitosis, headache(s) or hearing loss Cardiovascular Cardiovascular: Denies bluish discoloration of hand/feet, chest pain, claudication, clubbing, cold extremities, cyanosis or diaphoresis Respiratory/Chest Respiratory/Chest: Reports dyspnea on exertion; Denies chest congestion, difficulty clearing secretions, excessive phlegm production, hemoptysis, hoarseness, inability to speak or mouth breathing Gastrointestinal Gastrointestinal: Denies anorexia, belching, bloating, change in bowel habits, chewing difficulty, coffee ground emesis or cramping Genitourinary Genitourinary: Denies abdominal discomfort, burning urination, difficulty urinating or flank pain Musculoskeletal Musculoskeletal: Denies loss of height, muscle cramps, muscle weakness, numbnessor tremors Integumentary Integumentary: Reports erythema; Denies change in pigmentation, furuncle, hirsutism, jaundice or skin swelling Neurologic Neurologic: Denies abnormal speech, behavior changes, burning sensations, confusion, convulsions, disequilibrium or lack of coordination Psychiatric Psychiatric: Denies anxiety, auditory hallucinations, behavioral changes, difficulty concentrating, hallucinations, homicidal ideation, irritability or memory loss Endocrine Endocrinology: Denies cold intolerance, deepening of the voice, excessive sweating, fatigue, flushing, increase in ring/shoe/hat size or palpitations Hematologic/Lymphatic Hematologic/Lymphatic: Reports easy bleeding and easy bruising Allergic/Immunologic Allergic/Immunologic: Denies lip swelling, rhinitis, throat swelling, tongue swelling, eczemia or wheezing Vital Signs Vital Signs Vital Signs: 12/17/24 10:33 Temperature 96.7 F L Temperature Source Temporal Pulse Rate 101 H Respiratory Rate 18 Blood Pressure 103/64 Blood Pressure Mean 77 Blood Pressure Source Monitor Blood Pressure Position Sitting Blood Pressure Location Left Arm Oxygen Delivery Method Room Air Physical Exam Const alert, oriented x3 and no apparent distress General Appearance: cooperative and comfortable HEENT normocephalic and head/scalp atraumatic Eyes EOMs intact bilaterally General Eye: normal appearance of both eyes Neck full ROM General: normal visual inspection Resp normal air movement Effort and Inspection: able to speak in complete sentences Auscultation: clear to auscultation bilaterally Cardio regular rate, S1 normal heart sound and S2 normal heart sound GI soft to palpation and non-tender Skin General Skin Exam: erythema Wounds: wounds noted size Size: See clinical note, bed with slough, margins wellapproximated, no odor and surrounding erythema Neuro oriented x3, CN's II-XII intact bilaterally, moves all extremities and no focal motor deficits Psych mental status grossly normal, thought process normal, cooperative and affect normal Debridement Note Debridement Note Wound debrided: Right Thigh ( Medial ) Type of Debridement: Excisional debridement Anesthesia Used: 5% Lidocaine Gel Depth: Down to and including healthy tissue and in the subcutaneous layer Percentage of wound debrided: 100 Instrument Used: 3mm curette Tissue Removed: Slough and devitalized tisusue Severity: Fat Layer Exposed Amount of bleeding with debridement: Mild Bleeding Controlled with: Pressure Post-Debridement Measurements and Additional Note: Post-Debridement Measurements/Treatment - Nurse 1 - General Ulcer Assessment Start: 12/17/24 10:22 Freq: Status: Active Protocol: CLAUDINE Activity Type Activity Date Activity User E-sign Co-sign Detail Recorded Client Recorded Date Recorded By Document 12/17/24 10:33 [place]TE [id number] 12/17/24 10:36 [place] 12/17/24 10:33 - Today's Visit Information Type of service Initial Visit Arrival Mode Ambulatory Accompanied by Patient Identification Verified (Name & Yes ) Vital Signs Temperature (97.8 F-99.1 F) 96.7 F L Temperature Source Temporal Pulse Rate (60-100) 101 H Pulse Location Monitor Respiratory Rate (12-18) 18 Respiratory rate source Observation Oxygen Delivery Method Room Air Blood Pressure (90/60-120/80) 103/64 Blood Pressure Mean 77 Source Monitor Position Sitting Blood Pressure Location Left Arm History Since Last Visit- (Skip if this is Patient's initial visit) Left Footwear Regular Shoe Right Footwear Regular Shoe Pain Scale: 0-10 Numeric Is Patient Pain Free? No lt thigh -Intensity 8 -Alleviating Factors/Interventions Medication, Medicate when due,Inactivity/ Resting Communication Assessment Preferred language [place] Possum Trapper Required No Able to Read Yes Able to Write Yes Communication Tools None Caregiver Communication Skills No Impairment Impairment Right Hearing Abillity Normal Left Hearing Abillity Normal Visual Assistive Devices Glasses Teaching Assessment Preferences Verbal,Written Barriers to Learning None Readiness To Learn Excellent Willingness to Engage in Self Management High Activies Readiness to Engage in Self Management High Activities Anxiety Level Calm Cooperation Cooperative Perception Coherent Interest in Health Problem Asks Questions Education Importance Acknowledges Need Does Patient Smoke tobacco or other No substances Smoking Status Never smoker Is Patient Diabetic Yes Functional Assessment Recent Decline in Ability to Perform Denies Any Declines Culture/Muslim/Sales Officer Cultural/Muslim Needs that may affect No Treatment Plan Would you allow our hospital show card letterer to No meet you for the purpose of spiritual/ emotional support? Sales Officer to contact place of congregational No WC - Nurse 1 - General Ulcer Measurement Start: 12/17/24 10:22 Freq: Status: Active Protocol: Activity Type Activity Date Activity User E-sign Co-sign Detail Recorded Client Recorded Date Recorded By Document 12/17/24 10:33 [id number] 12/17/24 10:36 12/17/24 10:33 Wound Center Nurse 1 1 LT MED THIGH -Current Size (cm) - Length 1 -Current Size (cm) - Width 1 -Current Size (cm) - Depth 0.2 -Total Square Cm 1 -Date of Last Picture (Recall this 12/17/24 field) -Exudate Amt Medium -Exudate Type Serosanguineous -Wound Margin Distinct, Outline Attached -Granulation Amt Medium (34-66%) -Granulation Quality Red -Necrosis Amt Medium (34-66%) -Necrotic Tissue Type Adherent Slough -Texture (Daysi-wound Skin Appearance) Assessed,Rash -Moisture (Daysi-wound Skin Appearance) Assessed -Color (Daysi-wound Skin Appearance) Assessed, Erythema -Temperature (Daysi-wound Skin No Abnormality Appearance) (Pt Warm) -Tenderness on Palpation (Daysi-wound No Skin Appearance) -Ulcer Cleansing Rinsed/ Irrigated with Saline -Foul Odor after Cleansing No -Anesthetic Used 5% Lidocaine Gel WC - Nurse 2 - General Ulcer CM Notes Start: 12/17/24 10:22 Freq: Status: Active Protocol: Activity Type Activity Date Activity User E-sign Co-sign Detail Recorded Client Recorded Date Recorded By Document 12/17/24 11:14 [id number] 12/17/24 11:21 12/17/24 11:14 Wound Center Nurse 2 -Time 11:14 -Correct Patient Yes -Correct Side, Site, Position Yes -Correct Procedure Yes -Procedure Performed Yes -Type of Procedure Debridement -Clinical Debridement Subcutaneous -Tissue Removed Subcutaneous -Post Debridement (cm) - Length 1.0 -Post Debridement (cm) - Width 0.9 -Post Debridement (cm) - Depth 0.1 -Total Square (Post) (cm) 0.90 -Area of Debridement (cm) - Length 1.0 -Area of Debridement (cm) - Width 0.9 -Total Square (Area) (cm) 0.90 -Tunneling No -Undermining/Tunneling No -Circular Undermining No -Wound/Ulcer Outcome Not Healed -Ulcer Cleansing Rinsed/ Irrigated with Saline -Foul Odor after Cleansing No -Bioengineered Tissue No -Bleeding Controlled with Pressure -Treatment Response Procedure Tolerated Well -Offloading No -Debridement - Subq, 1st 20sq cm Yes Pain Scale: 0-10 Numeric Is Patient Pain Free? Yes - Nurse 3 - General Ulcer D/C NN Start: 12/17/24 10:22 Freq: Status: Active Protocol: Activity Type Activity Date Activity User E-sign Co-sign Detail Recorded Client Recorded Date Recorded By Document 12/17/24 11:38 RB [id number] 12/17/24 11:40 RB 12/17/24 11:38 Wound Care Center Nurse 3 1 LT MED THIGH -Ulcer Cleansing Rinsed/ Irrigated with Saline -Primary Dressing Applied Promogran, Silicone Border Foam 4x4 -Promogran 1 -Silicone Border Foam 4x4 1 Treatment Response Procedure Tolerated Well Pain Scale: 0-10 Numeric Is Patient Pain Free? Yes WC - Visit Discharge Discharge Condition Stable Ambulatory Status Ambulatory Transportation Private Auto Accompanied by Medication Reconcilliation completed & No provided to patient/care provider Clinical Summary of Care Provided Yes Charges/Coding Visit Charges Office Visits / Consults: 39857 OV L3 Est 20min Procedures Integumentary 111xxx-113xx: 92830 Gillian subq tissue 20 sq cm/< Assessment/Plan Assessment/Plan (1) Chronic ulcer of thigh with fat layer exposed: CODE(S): L97.102 - 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 (2) Diabetes mellitus, type II: CODE(S): E11.9 - 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 without complications QUALIFIERS: Diabetes mellitus complication status: with unspecified complications Diabetes mellitus extermination supervisor insulin use: without senior living use Qualified Code(s): E11.8 - 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 with unspecified complications (3) Paroxysmal atrial fibrillation: CODE(S): I48.0 - Paroxysmal atrial fibrillation (4) Chronic respiratory failure: CODE(S): J96.10 - Chronic respiratory failure, unspecified whether with hypoxia or hypercapnia (5) Chronic respiratory failure with hypoxia: CODE(S): J96.11 - Chronic respiratory failure with hypoxia (6) Current use of shelter anticoagulation: CODE(S): Z79.01 - 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 supervisor (current) use of anticoagulants PLAN: Plan Debridement done as documented above, procedure was well-tolerated. Surroundingerythema concerning for intertriginous dermatitis. This is chronic and he denies pain, chills or feeling of unwell. History of obesity and he admits to significant moisture between his thighs. To right thigh ulcer, Promogran daily, cover with foam dressing. May change more often if soiled or wet. Continue antifungal powder to surrounding area of dermatitis which is said to be improving. Other supportive measures discussed including moisture control, use of 100% cotton/absorbable clothing and underwear. Keep environment cool to avoid excessive sweating, patient and spouse voiced understanding. Optimal diabetes control and increased protein intake also discussed. Their questions were answered and they were advised to let us know if they had any further questions or concerns. Follow-up here in a week or sooner if needed. This note was generated with [employer] dictation software. It may contain incorrectwords, spelling, and punctuation that were not noted in checking the note beforesigning. 12/18/24 1721 <Electronically signed by Marjorie Hernandez MD> Cosigner Signature (if applicable): CC: ~ Signed [facility] Work Phone: 1(147) 649-699909-12-2025 Telephone encounter Note* Telephone Encounter - Kandice Curran RN - 12/11/2024 3:02 PM EDT Returning call to patient. They said that their insurance will stop paying for Brilinta January 30 2025. I called to see if they knew if they will cover the generic version or not. No answer LVM [facility] [id number] Discharge summary Author Ochoa Johnson [facility] Note Date/Time November 28, 2024 1: 01pm [facility] Medical Records Department [address] [place] [address] Discharge Summary 11/28/24 1250 MR#: [id number] Acct: [id number] Name: KRUNAL LEOS Rep #:[id number] : 1965 59 From: Ochoa Johnson DO PCP: Dr. Brandt Winter MD Status:ADM IN Location: [place] [id number] Providers Date of Admission: 11/26/24 Primary Care Physician: Brandt Winter MD Consultations 11/26/24 13:21 Consult: Onc/Wound/program professional Routine Comment: 11/26/24 13:34 Consult: Onc/Wound/program professional Routine Comment: Reason for Consult:: boil oped [...] this time. Patient to follow-up with his edger liner as outpatient. 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 Brandt Winter MD; Dr. Ochoa Johnson DO~ Signed [facility] Work Phone: 1(341) 933-331608-30-2025 Progress note Author Ochoa Johnson [facility] Note Date/Time November 28, 2024 12 :50pm [facility] Medical Records Department [address] [place] [address] Progress Note - Hospitalist 11/28/24 0943 MR#: [id number] Acct: [id number] Name: KRUNAL LEOS Rep #:[id number] : 1965 59 From: Ochoa Johnson DO PCP: Dr. Brandt Winter MD Status:ADM IN Location: [place] [address] Reason for Visit Chief Complaint: Weakness Subjective [...] this time. Patient to follow-up with his edger liner as outpatient. Patient takes pirfenidone for his [...] Cosigner Signature (if applicable): CC: ~ Signed [facility] Work Phone: 1(579) 419-441908-30-2025 [facility]08-30-2025 Consult note Author Ochoa Faust [facility] Note Date/Time November 28, 2024 12 :51am [facility] Medical Records Department [address] [facility] [address] Pharmacokinetic/Renal -Consult 11/28/24 0049 MR#: [id number] Acct: [id number] Name: DAFNEKRUNAL YOON Rep #:[id number] : 1965 59 From: Ochoa Faust PCP: Dr. Brandt Winter MD Status:ADM IN Y Location: [place] [address] Consult Antibiotic Management Pharmacy has been consulted [...] @2330 11/28/24 0051 <Electronically signed by Ochoa donnelly> Date _ Ochoa Toth Signature (if applicable): Date CC: ~ Signed [facility] Work Phone: 1(420) 220-236108-29-2025 Progress note Author Ochoa Johnson [facility] Note Date/Time November 27, 2024 12 :01pm [facility] Medical Records Department [address] [place] [address] Progress Note - Hospitalist 11/27/24822 MR#: [id number] Acct: [id number] Name: KRUNAL LEOS Rep #:[id number] : 1965 59 From: Ochoa Johnson DO PCP: Dr. Brandt Winter MD Status:ADM IN Location: [place] [address] Reason for Visit Chief Complaint: Weakness Subjective [...] (Auto) 76.5 H, Lymph% (Auto) 8.9 L, Ware % (Auto) 12.8 H, Eos % (Auto) [...] Clarity Clear, Urine pH 6.0, Ur Specific [place] 1.015, Urine Protein 15 H, Urine Glucose [...] (Auto) 74.4 H, Lymph %(Auto) 13.0 L, Ware % (Auto) 10.3 H, Eos % (Auto) [...] no visible acute traumatic injury. Reading Location: [facility] Cervical Spine CT 11/26/24 09:38 IMPRESSION: DEGENERATIVE CHANGES OF THE CERVICAL SPINE. NO EVIDENCE OF SIGNIFICANT OSSEOUS CENTRAL CANAL OR NEURAL FORAMINAL STENOSIS. Reading Location: [id number] Chest X-Ray 11/26/24 09:38 IMPRESSION: Examination limited [...] acute osseous process is identified. Reading Location: [facility] Pelvis X-Ray 11/26/24 09:38 IMPRESSION: Degenerative [...] out a currently occult fracture. Reading Location: [facility] Physical Exam Const alert and no apparent [...] this time. Patient to follow-up with his edger liner as outpatient. Patient takes pirfenidone for his [...] be determined. Charges/Coding Visit Charges Inpatient E&M: 06357 Subs Hosp L2 11/27/24 1201 <Electronically signed by Ochoa Johnson DO> Cosigner Signature (if applicable): CC: ~ Signed [facility] Work Phone: 1(334) 687-988408-28-2025 Consult note Author Pravin Jaime [facility] Note Date/Time November 26, 2024 3: 17pm [facility] Medical Records Department [address] [place] [address] Pharmacokinetic/Renal -Consult 11/26/24 1342 MR#: [id number] Acct: [id number] Name: KRUNAL LEOS Rep #:[id number] : 1965 59 From: Pravin Jaime PCP: Dr. Brandt Winter MD Status:ADM IN Y Location: [place] [address] Consult Antibiotic Management Pharmacy has been consulted [...] 2330 11/26/24 1343 <Electronically signed by Pravin Werner r> Date _ Pravin Pereamayofernando 11/26/24 1517 <Electronically signed by Ochoa Johnson DO> Cosigner Signature (if applicable): Date Ochoa Johnson DO CC: ~ Signed [facility] Work Phone: 1(855) 522-152008-28-2025 History and physical note Author Ochoa Johnson [facility] Note Date/Time November 26, 2024 12 :33pm [facility] Medical Records Department [address] [place] [address] H&P Exam - Hospitalist 11/26/24 1209 MR#: [id number] Acct: [id number] Name: KRUNAL LEOS Rep #:[id number] : [...] past few days, he has noticed a "boil" on his right leg. Today feels much worse given the location, which is in his groin, he is not able to see it. He presented to the emergency room and was diagnosed with sepsis, received a liter of IV fluids as well as vancomycin and Zosyn. 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 Reading Location: [facility] Cervical Spine CT 11/26/24 09:38 IMPRESSION: DEGENERATIVE CHANGES OF THE CERVICAL SPINE. NO EVIDENCE OF SIGNIFICANT OSSEOUS CENTRAL CANAL OR NEURAL FORAMINAL STENOSIS. Reading Location: [id number] Chest X-Ray 11/26/24 09:38 IMPRESSION: Examination limited [...] acute osseous process is identified. Reading Location: [facility] Pelvis X-Ray 11/26/24 09:38 IMPRESSION: Degenerative [...] out a currently occult fracture. Reading Location: [facility] Assessment & Plan Assessment/Plan (1) Sepsis: [...] this time. Patient to follow-up with his edger liner as outpatient. Patient takes pirfenidone for his [...] does so. Charges/Coding Visit Charges Inpatient E&M: 37319 Init Hosp L3 11/26/24 1233 <Electronically signed by Ochoa Johnson DO> Cosigner Signature (if applicable): CC: Dr. Brandt Winter MD; Dr. Ochoa Johnson DO; Rosalino Padron~ Signed [facility] Work Phone: 1(324) 228-701808-28-2025 Discharge summary Author Betina Martinez [facility] Note Date/Time November 26, 2024 12 :18pm [facility] Medical Records Department [address] [place] [address] Emergency Department Summary 11/26/24 MR#: [id number] Acct: [id number] Name: KRUNAL LEOS Rep #:[id number] : [...] droop is a deficit from prior stroke. 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 [facility] Cervical Spine CT 11/26/24 09:38 IMPRESSION: DEGENERATIVE CHANGES OF THE CERVICAL SPINE. NO EVIDENCE OF SIGNIFICANT OSSEOUS CENTRAL CANAL OR NEURAL FORAMINAL STENOSIS. Reading Location: [id number] Chest X-Ray 11/26/24 09:38 IMPRESSION: Examination limited [...] acute osseous process is identified. Reading Location: [place] [address] Pelvis X-Ray 11/26/24 09:38 IMPRESSION: Degenerative changes [...] out a currently occult fracture. Reading Location: [place] [address] Discharge Plan Triage Chief Complaint: Weakness ED Provider: Betina Martinez Dx/Rx/DC Orders Prescriptions: No Action (DME) Dexcom G6 Document Photographer Misc See Rx Instructions .ROUTE .MEDSUPPLY Qty: [...] MD [Primary Care Provider] - Print Language: Argentine What to do if you have Problems For any increased pain, shortness of breath, bleeding, nausea or vomiting, chestpain, or any unexpected problems, contact your Primary Care Provider. Call [facility] ([phone]) or report to the closest Emergency Room. Call 911 if necessary. 11/26/24 1218 <Electronically signed by Betina Martinez MD> Cosigner Signature (if applicable): CC: Dr. Brandt Winter MD ~ Signed [facility] Work Phone: 1(258) 593-440108-28-2025 Radiology Diagnostic study [facility]08-28-2025 Radiology Diagnostic study [facility]08-28-2025 Radiology Diagnostic study [facility] 11-26-2024 Radiology Diagnostic study [facility]08-21-2025 Discharge summary Author Amanda Devlin [facility] Note Date/Time November 19, 2024 7: 00pm [facility] Occupational Therapy [facility] [address] [place] [address]. [address] [place] [address] / REHABILITATION SERVICES DISCHARGE SUMMARY MR#: [id number] Acct: [id number] Name: KRUNAL LEOS Rep #: [id number] [...] pt will demo a increase in left it 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 specialist strength by 10# to increase pts ind.with [...] please fell free to call me at [phone]. Thank you for the referral of this patient. Sincerely, Amanda Devlin <Electronically signed by Amanda Devlin> 11/19/24 8356 CC: Dr. Brandt Winter MD; Dr. Karina Benítez, DO ~ CK Signed [facility] Work Phone: 1(490) 434-436608-15-2025 History of Present illness Narrative* Rosalino Padron MD - 11/13/2024 1:00 PM EDT Images from the original note were not included. Department of Medicine Division of Pulmonary, Critical Care, and Sleep Medicine Consultation [address] [facility] Patient was referred by his PCP (Dr. [...] surgery total pulmonary decortication in 2016 at [facility]. He was hospitalized in [place] from 03/02-03/04/2024 for acute hypoxic respiratory failure. [...] Review Audit Reviewed by Suly Johnston MA (Sr. Logistics Analyst) on 11/13/24 at 1302 Medication Order Taking? Sig Documenting Provider Last Dose Status albuterol 90 mcg/actuation inhaler [id number] Yes INHALE 2 PUFFS BY MOUTH EVERY 4 HOURS NEEDED FOR SHORTNESS OF BREATH OR WHEEZING Historical ProviderMD Active amLODIPine (Norvasc) 5 mg tablet [id number] Yes Take 1 tablet (5 mg) by mouth once daily. HistoricalProviderMD Active aspirin 325 mg tablet [id number] Yes Take 1 tablet (325 mg) by mouth once daily. Historical ProviderMD Active atorvastatin (Lipitor) 80 mg tablet [id number] Yes Take 1 tablet (80 mg) by mouth once daily at bedtime. Historical Provider, Active betamethasone, augmented, (Diprolene) 0.05 % lotion [id number] Yes Historical ProviderMD Active bismuth subsalicylate (Pepto Bismol) 262 mg chewable tablet [id number] Yes Historical ProviderMD Active Brilinta 90 mg tablet [id number] Yes 1 tablet (90 mg). Historical ProviderMD Active busPIRone (Buspar) 10 mg tablet [id number] Yes Take 1 tablet (10 mg) by mouth 3 times a day. Historical ProviderMD Active clopidogrel (Plavix) 75 mg tablet [id number] Take 1 tablet (75 mg) by mouth early in the morning.. Historical ProviderMD Active dapagliflozin propanediol (Farxiga) 5 mg [id number] Take 1 tablet (5 mg) by mouth once daily. Historical ProviderMD Active Dexcom G6 Sensor device [id number] Yes USE DIRECTED FOR CONTINUOUS BLOOD GLUCOSE MONITORING, CHANGE SENSOR EVERY 10 DAYS Historical ProviderMD Active DULoxetine (Cymbalta) [address] capsule [id number] Yes Take 1 capsule (60 mg) by mouth once daily. Historical Provider, Active Eliquis 5 mg tablet [id number] Yes Take 1 tablet (5 mg) by mouth 2 times a day. Historical ProviderMD Active ergocalciferol (Vitamin D-2) 1250 mcg (50,000 units) capsule [id number] Take 1 capsule (1,250 mcg) by mouth. Historical ProviderMD Active fenofibrate (Tricor) 54 mg tablet [id number] Yes Take 1 tablet (54 mg) by mouth once daily. Historical ProviderMD Active furosemide (Lasix) 40 mg tablet [id number] Yes Take 1 tablet (40 mg) by mouth. Historical ProviderMD Active glimepiride (Amaryl) 4 mg tablet [id number] Yes Take 1 tablet (4 mg) by mouth early in the morning..Historical ProviderMD Active glipiZIDE (Glucotrol) 5 mg tablet [id number] Yes Take 1 tablet (5 mg) by mouth. Historical ProviderMD Active HumuLIN R U-500, Conc, Insulin 500 unit/mL CONCENTRATED injection [id number] Yes Historical ProviderMD Active Jardiance 25 mg [id number] Yes Take 1 tablet (25 mg) by mouth once daily. Historical ProviderMD Active levothyroxine (Synthroid, Levoxyl) 112 mcg tablet [id number] Yes Take 1 tablet (112 mcg) by mouth once daily. Gloria Rahman MD Active lisinopril 40 mg tablet [id number] Yes Take 1 tablet (40 mg) by mouth once daily. Gloria Rahman MD Active metFORMIN (Glucophage) 500 mg tablet [id number] Take 1 tablet (500 mg) by mouth 2 times daily (morning and late afternoon). Gloria Rahman MD Active metoprolol succinate XL (Toprol-XL) 100 mg 24 hr tablet [id number] Yes TAKE 1 TABLET BY MOUTH DAILY for heart Historical MD Lacey Active Mucinex DM 60-1,200 mg tablet extended release 12 hr [id number] Take 1 tablet by mouth every 12 hours. Gloria Rahman MD Active oxyCODONE-acetaminophen (Percocet) 5-325 mg tablet [id number] Yes Take 1 tablet by mouth 2 times a day as needed. Gloria Rahman MD Active pantoprazole (ProtoNix) 40 mg EC tablet [id number] Yes Take 1 tablet (40 mg) by mouth. Gloria Rahman MD Active potassium citrate CR (Urocit-K-10) 10 mEq ER tablet [id number] Yes Take 1 tablet (10 mEq) by mouth twice a day. Gloria Rahman MD Active predniSONE (Deltasone) 20 mg tablet [id number] Take 0.5 tablets (10 mg) by mouth early in the morning.. Gloria Rahman MD Active predniSONE (Deltasone) 20 mg tablet [id number] Yes Take 2 tablets (40 mg) by mouth once daily. Rosalino Padron MD Active predniSONE (Deltasone) 5 mg tablet [id number] Yes Take 4 tablets (20 mg) by mouth once daily for 30 days, THEN 3 tablets (15 mg) once daily for 30 days, THEN 2 tablets (10 mg) once daily for 30 days, THEN 1 tablet (5 mg) once daily for 14 days. Rosalino Padron MD Active spironolactone (Aldactone) 50 mg tablet [id number] Yes Take 1 tablet (50 mg) by mouth once daily. Gloria Rahman MD Active tamsulosin (Flomax) 0.4 mg 24 hr capsule [id number] Yes Take 1 capsule (0.4 mg) by mouth once daily.Gloria Rahman MD Active traMADol (Ultram) 50 mg tablet [id number] Take 1 tablet (50 mg) by mouth. [...] for Ofev given the need anticoagulation. Willdiscuss Brayan on follow as well as clinical trial [...] pneumonia (UIP). Will submit prior auth for Brayan # Prednisone therapy: Ordered on 08/07/2024. He [...] Rosalino Padron MD 11/13/2024 documented in this [facility] Work Phone: 1(135) 685-319608-15-2025 Instructions* Patient Instructions* Rosalino Padron MD - [...] a breathing or a walking test Call [phone] to schedule EKG's, Echocardiograms and Cardiopulmonary Stress Tests. Call [phone] to schedule Radiology tests such as Nuclear Medicine Stress Tests, CT Scans, and MRI's. Should you have any questions Please Call our pulmonary nurse Linda Marie at [phone] or my assistant chief nursing officer Puneet Leone at [phone] documented in this [facility] Work Phone: 1(135) 103-237208-05-2025 Progress note Author Rito Lundberg [facility] Note Date/Time November 03, 2024 2:1 4pm [facility] [address] [address] OFFICE VISIT Date of Service: 11/03/24 1331 MR#: [id number] Acct: [id number] Name: KRUNAL LEOS Rep #: [id number] : 1965 From: Rito alvarez MD Age/Sex: 59/M Location: [facility] Status: Signed HPI Subjective Date of Service [...] Resected and retrieved. Clip was placed. Clip tailor women's garment alteration: UCT Coatings. - The examined portion of the ileum was normal. March 2024 pathology: MICROSCOPIC DIAGNOSIS A. Gastric body polyp, polypectomy: Fragments of hyperplastic/inflammatory polyp. See comment. B. Hepatic flexure polyp, polypectomy: Fragments of villous adenoma. C. Ascending colon polyp, biopsy: Fragments of tubular adenoma. 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 Brandt Winter MD ~ [place] [facility] [employer] Work Phone: 1(118) [phone] Telephone encounter Note* Telephone Encounter - Kandice Curran RN - 10/27/2024 12:09 PM EDT Called pharmacy, they need additional refills sent in. Will pend and send a request to the provider. [id number] Miscellaneous Notes* Telephone Encounter - Kandice Curran RN - 10/27/2024 12:09 PM EDT Called pharmacy, they need additional refills sent in. Will pend and send a request to the provider. documented in this encounterSNorwalk Memorial [id number] Discharge summary Author Karina Beíntez [facility] Note Date/Time September 28, 2024 4:06 pm [facility] Medical Records Department [address] [place] [address] Discharge Summary 09/28/24 1442 MR#: [id number] Acct: [id number] Name: KRUNAL LEOS Rep #:[id number] : 1965 59 From: Karina Benítez DO PCP: Dr. 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 Would have extensive conversation in the future before holding aspirin, Brilinta, and Eliquis 5. Please follow-up with your neurologist as previously recommended Discharge Orders/Prescriptions Prescriptions: Continued (DME) Dexcom G6 Document Photographer [facility] See Rx Instructions .ROUTE .MEDSUPPLY Qty: 1 [...] Self Care Charges/Coding Visit Charges Inpatient E&M: 60454 Disch Hosp >30min 09/28/24 1606 <Electronically signed by Karina Benítez DO> Cosigner Signature (if applicable): CC: Dr. Brandt Winter MD; Dr. Karina Benítez DO; Dr. Toni Vann MD~ Signed [facility] Work Phone: 1(285) 453-556106-30-2025 [facility]06-30-2025 Progress note Author Amy Dumont [facility] Note Date/Time September 28, 2024 12:3 3pm [facility] Medical Records Department [address] [place] [address] Progress Note - Neurology 09/28/24 1144 MR#: [id number] Acct: [id number] Name: KRUNAL LEOS Rep #:[id number] : 1965 59 From: Amy Dumont MD PCP: Dr. Brandt Winter MD Status:ADM IN Location: [place] [address] Objective Data Objective Data Vital Signs: Vital [...] Additional chronic findings as described. Reading Location: [facility] Physical Exam Neuro Neuro Narrative: Awake,alert, [...] saturday, and on saturday while at a green party had transient left sided symptoms and dysarthria that lasted 30min so came in to get checked out. Last time he had this was in 04/2024 and work up was neg and called TIA. He went to see his neurologist and vascular surgeon who switched him to [id number] and switched plavix to brillinta and he [...] at TIME Assessment and Plan: Stroke Assessment/Plan KRUNAL LEOS is a 59 M with a [...] Recorded Date Recorded By Document 09/26/24 15:40 [id number] 09/26/24 15:41 09/26/24 15:40 NIH Stroke Scale [NIHSS] A score of 0 is "normal" or asymptomatic . Total possible score is [...] 2 Query Text:A score of 0 is "normal" or asymptomatic. Total possible score is 42 [...] and with change in RN caregiver. Freq: [id number] Protocol: Activity Type Activity Date Activity User E-sign Co-sign Detail Recorded Client Recorded Date Recorded By Document 09/28/24 09:27 MARLY [id number] 09/28/24 09:29 MARLY 09/28/24 09:27 -1a. Level [...] 2 Query Text:A score of 0 is "normal" or asymptomatic. Total possible score is 42 [...] Cosigner Signature (if applicable): CC: ~ Signed [facility] Work Phone: 1(990) 927-559406-29-2025 Progress note Author Karina Benítez [facility] Note Date/Time September 27, 2024 3:41 pm [facility] Medical Records Department [address] [facility] [place] [address] Progress Note - Hospitalist 09/27/24 0801 MR#: [id number] Acct: [id number] Name: KRUNAL LEOS Rep #:[id number] : 1965 59 From: Karina Benítez DO PCP: Dr. Brandt Winter MD Status:ADM IN Location: [place] [address] Reason for Visit Reason for Visit: Diagnoses [...] (Auto) 85.3 H, Lymph %(Auto) 4.2 L, Ware % (Auto) 8.7, Eos % (Auto) 0.6, [...] % (Auto) 68.9, Lymph % (Auto) 19.4, Ware % (Auto) 8.9, Eos % (Auto) 1.7, [...] Avitia at 4:36 pm on09/26/24. Reading Location: [facility] Head/Neck CTA 09/26/24 17:06 IMPRESSION: 1. [...] At 6:31 pm on 09/26/24. Reading Location: [facility] Physical Exam Const alert, oriented x3 [...] -Full code Charges/Coding Visit Charges Inpatient E&M: 58781 Subs Hosp L2 NIHSS NIHSS Nursing Documentation NIHSS Nursing Documentation: NIH Stroke Scale Start: 09/26/24 15:40 Freq: Status: Discharge Protocol: Activity Type Activity Date Activity User E-sign Co-sign Detail Recorded Client Recorded Date Recorded By Document 09/26/24 15:40 [id number] 09/26/24 15:41 09/26/24 15:40 NIH Stroke Scale [NIHSS] A score of 0 is "normal" or asymptomatic . Total possible score is [...] 2 Query Text:A score of 0 is "normal" or asymptomatic. Total possible score is 42 [...] and with change in RN caregiver. Freq: [id number] Protocol: Activity Type Activity Date Activity User E-sign Co-sign Detail Recorded Client Recorded Date Recorded By Document 09/27/24 07:19 AM [id number] 09/27/24 07:19 AMG 09/27/24 07:19 -1a. Level [...] 0 Query Text:A score of 0 is "normal" or asymptomatic. Total possible score is 42 [...] Cosigner Signature (if applicable): CC: ~ Signed [facility] Work Phone: 1(304) 497-869206-29-2025 Consult note Author Fred Talbert [facility] Note Date/Time September 27, 2024 11:4 5am [facility] Medical Records Department [address] [place] [address] Consultation - Neurology 09/27/24 1129 MR#: [id number] Acct: [id number] Name: KRUNAL LEOS Rep #:[id number] : 1965 59 From: Fred Alvarado PCP: Dr. Brandt Winter MD Status:ADM IN [facility] Assessment and Plan: Neuro Assessment/Plan Assessment: - [...] saturday, and on saturday while at a green party had transient left sided symptoms and dysarthria that lasted 30min so came in toget checked out. Last time he had this was in 04/2024 and work up was neg and called TIA. He went to see his neurologist and vascular surgeon who switched himto [id number] and switched plavix to brillinta and he [...] further recs. F/u with pcp and neurologist. [facility] Medical History Hyperlipidemia Ischemic cerebrovascular accident (CVA) CHF (congestive heart failure) Chronic respiratory failure with hypoxia KIANNA (obstructive sleep apnea) Presence of insulin pump CKD (chronic kidney disease) Hypothyroidism Essential (primary) hypertension Diabetes Acute hypoxemic respiratory failure Chronic diastolic CHF (congestive heart failure) Obesity Exertional shortness of breath Iron deficiency anemia due to chronic blood loss Current use of shelter anticoagulation Morbid obesity with BMI of 45.0-49.9, adult Atherosclerotic heart disease of [place] coronary artery without angina pectoris Mini stroke [...] depres wanda 04/17/18 09/26/24 History release (Cymbalta) 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 Reading Location: [facility] Head/Neck CTA 09/26/24 17:06 IMPRESSION: 1. [...] At 6:31 pm on 09/26/24. Reading Location: [facility] Active Medications Active Medications Active Medications: [...] 80 Mg Tablet PO 80 mg QHS ALTA Administration Buspirone HCl 10 mg 09/27/24 10:00 09/27/24 10:43 Buspirone 5 Mg Tablet PO 10 mg DAILY ALTA Administration Duloxetine HCl 60 mg 09/27/24 10:00 09/27/24 10:43 Duloxetine Hcl 60 Mg Capsule PO 60 mg DAILY ALTA Administration Fenofibrate 145 mg 09/26/24 22:00 09/26/24 21:30 Fenofibrate 145 Mg Tablet PO 145 mg QHS ALTA Administration Ferrous Sulfate 325 mg 09/27/24 12:00 Ferrous Sulfate 325 Mg Tablet PO DAILY@1200 COUNT INCLUDES THE [facility] Glucagon 1 mg 09/26/24 19:19 Glucagon 1 Mg/Ml Syringe IM X1 PRN HYPOGLYCEMIA Protocol Hydralazine HCl 5 mg 09/26/24 19:19 Hydralazine 20 Mg/Ml Vial IV 09/27/24 19:23 Q30M PRN maintain BP parameters with HR <60 Sodium Chloride 250 mls @ 15 mls/hr 09/26/24 18:49 IV .[id number] PRN Saline Flush Sodium Chloride 250 mls @ 15 mls/hr 09/26/24 18:49 IV .[id number] PRN Additional IVPB Infusion Dextrose 250 mls @ 0 mls/hr 09/26/24 19:19 Dextrose 10%-Water IV .Q0M PRN HYPOGLYCEMIA Protocol As Directed Insulin Aspart 1 unit 09/27/24 10:00 09/27/24 10:44 Insulin Basal Pump SC Not Given UD COUNT INCLUDES THE [facility] Insulin Human Lispro 0 unit 09/26/24 22:00 09/27/24 06:03 Insulin Lispro 100 Unit/Ml Insuln.Pen SC Not Given ACHS COUNT INCLUDES THE [facility] Protocol Labetalol HCl 20 mg 09/26/24 15:39 Labetalol 20 Mg/4 Ml Vial IV 09/27/24 15:39 X1 PRN BLOOD PRESSURE Labetalol HCl 10 - 20 mg 09/26/24 19:19 Labetalol 20 Mg/4 Ml Vial IV 09/27/24 19:23 Q10M PRN PRN maintain BP parameters with HR >/=60 Levothyroxine Sodium 112 mcg 09/27/24 06:00 09/27/24 06:04 Levothyroxine 112 Mcg Tablet PO 112 mcg DAILY@0600 COUNT INCLUDES THE [facility] Administration Melatonin 10 mg 09/26/24 19:19 Melatonin 3 Mg Tablet PO QHS PRN PRN INSOMNIA Metoprolol Succinate 50 mg 09/27/24 10:00 09/27/24 10:43 Metoprolol(Xl)Succ 50 Mg Tablet PO 50 mg DAILY COUNT INCLUDES THE [facility] Administration Protocol Ondansetron HCl 4 mg 09/26/24 [...] Recorded Date Recorded By Document 09/26/24 15:40 [id number] 09/26/24 15:41 09/26/24 15:40 NIH Stroke Scale [NIHSS] A score of 0 is "normal" or asymptomatic . Total possible score is [...] 2 Query Text:A score of 0 is "normal" or asymptomatic. Total possible score is 42 [...] and with change in RN caregiver. Freq: [id number] Protocol: Activity Type Activity Date Activity User E-sign Co-sign Detail Recorded Client Recorded Date Recorded By Document 09/27/24 11:00 [id number] 09/27/24 11:03 09/27/24 11:00 -1a. Level of [...] 0 Query Text:A score of 0 is "normal" or asymptomatic. Total possible score is 42 [...] Winter MD; Dr. Angel Avitia MD~ Signed [facility] Work Phone: 1(356) 376-773806-28-2025 History and physical note Author Xiao Berrios [facility] Note Date/Time September 26, 2024 8:18 pm [facility] Medical Records Department [address] [place] [address] H&P Exam - Hospitalist 09/26/24 1827 MR#: [id number] Acct: [id number] Name: KRUNAL LEOS Rep #:[id number] 30 : 1965 59 From: Xiao Berrios MD PCP: Dr. Brandt Winter MD Status:ADM IN Location: U PBI260- 1 [facility] - General General Date of Admission: 09/26/24 Date of Service: 09/26/24 Chief Complaint: Left-sided numbness and weakness, virtually resolved but still difficulty getting around HPI Narrative KRUNAL LEOS, is a 59-year-old male history of CVA, chronic respiratory failure on home O2, BPH, depression, type 2 diabetes on insulin pump, KIANNA, anemia, CHF who presented to [facility] ED 09/26/2024 due to tingling weakness on [...] acute complaints at time of my exam. 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 Reading Location: [id number] Assessment & Plan Assessment/Plan (1) Acute CVA [...] central tracheal secretions -Patient was evaluated by [facility] early in 2024 and intervention for his [...] findings and discussed transfer versus staying at [facility], patient's neuroexam is exactly the same he reports overall he feels well, patient would like to stay at [facility] and understands that if he were [...] 100 Minutes Charges/Coding Visit Charges Inpatient E&M: 33969 Init Hosp L3 09/26/242017 <Electronically signed by Xiao Berrios MD> Cosigner Signature (if applicable): CC: Dr. Brandt Winter MD; Dr. Xiao Berrios MD~ Signed [facility] Work Phone: 1(989) 194-388406-28-2025 Discharge summary Author Angel Avitia [facility] Note Date/Time September 26, 2024 5:05 pm [facility] Medical Records Department [address] [place] [address] Emergency Department Summary 09/26/24 MR#: [id number] Acct: [id number] Name: KRUNAL LEOS Rep #:[id number] 13 : [...] and lung disease. This was performed at [facility]. Patient did take his medicine [...] symptoms: Yes Recent Illness/Hospitalization: Yes (Lung biopsy [facility]) [facility] Medical History Hyperlipidemia Ischemic cerebrovascular accident (CVA) CHF (congestive heart failure) Chronic respiratory failure with hypoxia KIANNA (obstructive sleep apnea) Presence of insulin pump CKD (chronic kidney disease) Hypothyroidism Essential (primary) hypertension Diabetes Acute hypoxemic respiratory failure Chronic diastolic CHF (congestive heart failure) Obesity Exertional shortness of breath Iron deficiency anemia due to chronic blood loss 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 [place] Coma Scale: document [...] 85.3 H Lymph % (Auto) 4.2 L Ware % (Auto) 8.7 Eos % (Auto) 0.6 [...] Avitia at 4:36 pm on09/26/24. Reading Location: [facility] Radiologist informing there is no evidence of acute stroke or hemorrhage. CT was reviewed by me. There is nothing obvious that I saw or any change compared to prior. EKG Initial EKG: Attestation: I personally reviewed and interpreted this EKG as follows: Interpretation: Sinus Rhythm (Rate is 82. CT interval 238 ms. QRS durations 106 ms. QT durations are 96 ms. Kilbourne is normal. There is evidence of LVH. [...] hyperglycemia Prescriptions: No Action (DME) Dexcom G6 Document Photographer Misc See Rx Instructions .ROUTE .MEDSUPPLY Qty: [...] MD [Primary Care Provider] - Print Language: Argentine [facility] your Primary Care Provider. Call [facility] ([phone]) or report to the closest Emergency Room. Call 911 if necessary. 09/26/241704 <Electronically signed by Angel Aviita MD> Cosigner Signature (if applicable): CC: Dr. Brandt Winter MD ~ Signed [facility] Work Phone: 1(433) 473-955506-28-2025 Radiology Diagnostic study [facility]06-28-2025 Discharge summary [facility] Medical Records Department [address] [place] [address] Emergency Department Summary 09/26/24 MR#: [id number] Acct: [id number] Name: KRUNAL LEOS Rep #:[id number] 13 : [...] and lung disease. This was performed at [facility]. Patient did take his medicine [...] symptoms: Yes Recent Illness/Hospitalization: Yes (Lung biopsy [facility]) [facility] Medical History Hyperlipidemia Ischemic cerebrovascular accident (CVA) CHF (congestive heart failure) Chronic respiratory failure with hypoxia KIANNA (obstructive sleep apnea) Presence of insulin pump CKD (chronic kidney disease) Hypothyroidism Essential (primary) hypertension Diabetes Acute hypoxemic respiratory failure Chronic diastolic CHF (congestive heart failure) Obesity Exertional shortness of breath Iron deficiency anemia due to chronic blood loss Current use of shelter anticoagulation Morbid obesity with BMI of 45.0-49.9, adult Atherosclerotic heart disease of [place] coronary artery without angina pectoris Mini stroke [...] wanda 04/17/18 04/24/24 08:10 History 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 [place] Coma Scale: document GCS findings Spontaneous Obeys [...] 85.3 H Lymph % (Auto) 4.2 L Ware % (Auto) 8.7 Eos % (Auto) 0.6 [...] Avitia at 4:36 pm on09/26/24. Reading Location: [facility] Radiologist informing there is no evidence of acute stroke or hemorrhage. CT was reviewed by me. There is nothing obvious that I saw or any change compared to prior. EKG Initial EKG: Attestation: I personally reviewed and interpreted this EKG as follows: Interpretation: Sinus Rhythm (Rate is 82. CT interval 238 ms. QRS durations 106 ms. QT durations are 96 ms. Kilbourne is normal. There is evidence of LVH. [...] hyperglycemia Prescriptions: No Action (DME) Dexcom G6 Document Photographer Misc See Rx Instructions .ROUTE .MEDSUPPLY Qty: [...] MD [Primary Care Provider] - Print Language: [place] [facility] your Primary Care Provider. Call [facility] ([phone]) or report tothe closest Emergency Room. Call 911 if necessary. 09/26/24 1705 Cosigner Signature (if applicable): CC: Dr. Brandt Winter MD ~ Signed [facility]06-28-2025 Radiology Diagnostic study note [facility] Imaging Services [address] [place] [address] STROKE Brain/Head without Cont MR#: [id number] Acct: [id number] Name: KRUNAL LEOS Rep #: [id number] 71 : 1965 M 59 From: Astrid Newberry MD PCP: Dr. Brandt Winter MD Status: REG ER Study:STROKE Brain/Head without Cont Date of Exam: 09/26/24 Exam# [id number] Ordering Dr: Domonique Avitia MD EXAM: STROKE [...] Avitia at 4:36 pm on09/26/24. Reading Location: [facility] CC: Dr. Brandt Winter MD; Dr. Angel Avitia MD ~ Culled Fruit Packer: Signed [facility]06-28-2025 Discharge summary Author Angel Avitia [facility] Note Date/Time September 26, 2024 5:05 pm [facility] Medical Records Department [address] [place] [address] Emergency Department Summary 09/26/24 MR#: [id number] Acct: [id number] Name: KRUNAL LEOS Rep #:[id number] 13 : [...] and lung disease. This was performed at [facility]. Patient did take his medicine [...] symptoms: Yes Recent Illness/Hospitalization: Yes (Lung biopsy [facility]) [facility] Medical History Hyperlipidemia Ischemic cerebrovascular accident (CVA) CHF (congestive heart failure) Chronic respiratory failure with hypoxia KIANNA (obstructive sleep apnea) Presence of insulin pump CKD (chronic kidney disease) Hypothyroidism Essential (primary) hypertension Diabetes Acute hypoxemic respiratory failure Chronic diastolic CHF (congestive heart failure) Obesity Exertional shortness of breath Iron deficiency anemia due to chronic blood loss 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 [place] Coma Scale: document [...] 85.3 H Lymph % (Auto) 4.2 L Ware % (Auto) 8.7 Eos % (Auto) 0.6 [...] Avitia at 4:36 pm on09/26/24. Reading Location: [facility] Radiologist informing there is no evidence of acute stroke or hemorrhage. CT was reviewed by me. There is nothing obvious that I saw or any change compared to prior. EKG Initial EKG: Attestation: I personally reviewed and interpreted this EKG as follows: Interpretation: Sinus Rhythm (Rate is 82. CT interval 238 ms. QRS durations 106 ms. QT durations are 96 ms. Kilbourne is normal. There is evidence of LVH. [...] hyperglycemia Prescriptions: No Action (DME) Dexcom G6 Document Photographer Misc See Rx Instructions .ROUTE .MEDSUPPLY Qty: [...] MD [Primary Care Provider] - Print Language: [place] [facility] your Primary Care Provider. Call [facility] ([phone]) or report to the closest Emergency Room. Call 911 if necessary. 09/26/24 1705 <Electronically signed by Angel Avitia MD> Cosigner Signature (if applicable): CC: Dr. Brandt Wintre MD ~ Signed [facility] Work Phone: 1([phone]) 112-810406-26-2025 Hospital Discharge instructions* Discharge Instructions* Dick Nguyen MD - 09/24/2024 9:17 AM EDT [facility] Pulmonology The anesthetics, sedatives or narcotics [...] on weekends: / and ask for the Electrocardiograph Repairer on-call(Pager Number: [phone]) documented in this [facility] Work Phone: 1(327) 519-674006-26-2025 Attending History and physical note* Maeve Pringle [...] Pulmonary, Critical Care, and Sleep Medicine Consultation [address] [facility] Patient was referred by his PCP (Dr. [...] surgery total pulmonary decortication in 2016 at [facility]. He was hospitalized in [place] from 03/02-03/04/2024 for acute hypoxic respiratory failure. [...] Review Audit Reviewed by Heavenly Sparks MA (Sr. Logistics Analyst) on 08/28/24 at 1158 Medication Order Taking? Sig Documenting Provider Last Dose Status albuterol 90 mcg/actuation inhaler [id number] INHALE 2 PUFFS BY MOUTH EVERY 4 HOURS NEEDED FOR SHORTNESS OF BREATH OR WHEEZING Historical ProviderMD Active amLODIPine (Norvasc) 5 mg tablet [id number] Take 1 tablet (5 mg) by mouth once daily. Historical ProviderMD Active aspirin 325 mg tablet [id number] Take 1 tablet (325 mg) by mouth once daily. Historical ProviderLORNActive atorvastatin (Lipitor) 80 mg tablet [id number] Take 1 tablet (80 mg) by mouth once daily at bedtime.Historical ProviderMD Active betamethasone, augmented, (Diprolene) 0.05 % lotion [id number] APPLY TO RASH ON THE TRUNK OR SCALP 1-2 TIMES DAILY NEEDED Historical ProviderMD Active bismuth subsalicylate (Pepto Bismol) 262 mg chewable tablet [id number] CHEW AND SWALLOW 2 TABLETS BYMOUTH 3 TIMES A DAY for 2 weeks. max 16 tablets per 24 hours Patient not taking: Reported on 08/07/2024 Historical ProviderMD Active Brilinta 90 mg tablet [id number] 1 tablet (90 mg). Historical ProviderMD Active busPIRone (Buspar) 10 mg tablet [id number] Take 1 tablet (10 mg) by mouth 3 times a day. Historical ProviderMD Active clopidogrel (Plavix) 75 mg tablet [id number] Take 1 tablet (75 mg) by mouth early in the morning.. Gloria Rahman MD Active dapagliflozin propanediol (Farxiga) 5 mg [id number] Take 1 tablet (5 mg) by mouth once daily. Gloria Rahman MD Active Dexcom G6 Sensor device [id number] USE DIRECTED FOR CONTINUOUS BLOOD GLUCOSE MONITORING, CHANGE SENSOR EVERY 10 DAYS Gloria Rahman MD Active DULoxetine (Cymbalta) [address] capsule [id number] Take 1 capsule (60 mg) by mouth once daily. Gloria Rahman MD Active Eliquis 5 mg tablet [id number] Take 1 tablet (5 mg) by mouth 2 times a day. Gloria Rahman MD Active ergocalciferol (Vitamin D-2) 1250 mcg (50,000 units) capsule [id number] Take 1 capsule (1,250 mcg) by mouth. Gloria Rahman MD Active fenofibrate (Tricor) 54 mg tablet [id number] Take 1 tablet (54 mg) by mouth once daily. Historical MD Lacey Active furosemide (Lasix) 40 mg tablet [id number] Take 1 tablet (40 mg) by mouth. Gloria Rahman MD Active glimepiride (Amaryl) 4 mg tablet [id number] Take 1 tablet (4 mg) by mouth early in the morning.. Patient not taking: Reported on 08/07/2024 Gloria Rahman MD Active glipiZIDE (Glucotrol) 5 mg tablet [id number] Take 1 tablet (5 mg) by mouth. Patient not taking: Reported on 08/07/2024 Gloria Rahman MD Active HumuLIN R U-500, Conc, Insulin 500 unit/mL CONCENTRATED injection [id number] INJECT 75 UNITS DAILY VIA CONTINUOUS SUBCUTANEOUS INFUSION. DISCARD VIAL AFTER 40 DAYS Patient not taking: Reported on 08/07/2024 Gloria Rahman MD Active Jardiance 25 mg [id number] Take 1 tablet (25 mg) by mouth once daily. Gloria Rahman MD Active levothyroxine (Synthroid, Levoxyl) 112 mcg tablet [id number] Take 1 tablet (112 mcg) by mouth once daily. Gloria ProviderMD Active lisinopril 40 mg tablet [id number] Take 1 tablet (40 mg) by mouth once daily. Historical ProviderMD Active metFORMIN (Glucophage) 500 mg tablet [id number] Take 1 tablet (500 mg) by mouth 2 times daily (morning and late afternoon). Historical ProviderMD Active metoprolol succinate XL (Toprol-XL) 100 mg 24 hr tablet [id number] TAKE 1 TABLET BY MOUTH DAILY for heart Historical ProviderMD Active Mucinex DM 60-1,200 mg tablet extended release 12 hr [id number] Take 1 tablet by mouth every 12 hours. Historical ProviderMD Active oxyCODONE-acetaminophen (Percocet) 5-325 mg tablet [id number] Take 1 tablet by mouth 2 times a day as needed. Patient not taking: Reported on 08/07/2024 Gloria ProviderMD Active pantoprazole (ProtoNix) 40 mg EC tablet [id number] Take 1 tablet (40 mg) by mouth. Historical ProviderMD Active potassium citrate CR (Urocit-K-10) 10 mEq ER tablet [id number] Take 1 tablet (10 mEq) by mouth twicea day. Historical ProviderMD Active predniSONE (Deltasone) 20 mg tablet [id number] Take 0.5 tablets (10 mg) by mouth early in the morning.. Historical ProviderMD Active predniSONE (Deltasone) 20 mg tablet [id number] Take 2 tablets (40 mg) by mouth once daily. Patient not taking: Reported on 08/07/2024 Rosalino Padron MD Active predniSONE (Deltasone) 5 mg tablet [id number] Take 4 tablets (20 mg) by mouth once daily for 30 days, THEN 3 tablets (15 mg) once daily for 30 days, THEN 2 tablets (10 mg) once daily for 30 days, THEN1 tablet (5 mg) once daily for 14 days. Rosalino Padron MD Active spironolactone (Aldactone) 50 mg tablet [id number] Take 1 tablet (50 mg) by mouth once daily. Patient not taking: Reported on 08/07/2024 Gloria ProviderMD Active tamsulosin (Flomax) 0.4 mg 24 hr capsule [id number] Take 1 capsule (0.4 mg) by mouth once daily. Historical ProviderMD Active traMADol (Ultram) 50 mg tablet [id number] Take 1 tablet (50 mg) by mouth. [...] once above completed Rosalino Padron MD 08/28/2024 [facility] Work Phone: 1([phone]) 461-452506-26-2025 History and physical note* Maeve Pringle MD [...] Pulmonary, Critical Care, and Sleep Medicine Consultation [address] [facility] Patient was referred by his PCP (Dr. [...] surgery total pulmonary decortication in 2016 at [facility]. He was hospitalized in [place] from 03/02-03/04/2024 for acute hypoxic respiratory failure. [...] Review Audit Reviewed by Heavenly Sparks MA (Sr. Logistics Analyst) on 08/28/24 at 1158 Medication Order Taking? Sig Documenting Provider Last Dose Status albuterol 90 mcg/actuation inhaler [id number] INHALE 2 PUFFS BY MOUTH EVERY 4 HOURS NEEDED FOR SHORTNESS OF BREATH OR WHEEZING Historical ProviderMD Active amLODIPine (Norvasc) 5 mg tablet [id number] Take 1 tablet (5 mg) by mouth once daily. Historical ProviderMD Active aspirin 325 mg tablet [id number] Take 1 tablet (325 mg) by mouth once daily. Historical ProviderLORNActive atorvastatin (Lipitor) 80 mg tablet [id number] Take 1 tablet (80 mg) by mouth once daily at bedtime.Historical ProviderMD Active betamethasone, augmented, (Diprolene) 0.05 % lotion [id number] APPLY TO RASH ON THE TRUNK OR SCALP 1-2 TIMES DAILY NEEDED Historical ProviderMD Active bismuth subsalicylate (Pepto Bismol) 262 mg chewable tablet [id number] CHEW AND SWALLOW 2 TABLETS BYMOUTH 3 TIMES A DAY for 2 weeks. max 16 tablets per 24 hours Patient not taking: Reported on 08/07/2024 Historical ProviderMD Active Brilinta 90 mg tablet [id number] 1 tablet (90 mg). Historical ProviderMD Active busPIRone (Buspar) 10 mg tablet [id number] Take 1 tablet (10 mg) by mouth 3 times a day. Historical ProviderMD Active clopidogrel (Plavix) 75 mg tablet [id number] Take 1 tablet (75 mg) by mouth early in the morning.. Historical ProviderMD Active dapagliflozin propanediol (Farxiga) 5 mg [id number] Take 1 tablet (5 mg) by mouth once daily. Historical ProviderMD Active Clariturecom G6 Sensor device [id number] USE DIRECTED FOR CONTINUOUS BLOOD GLUCOSE MONITORING, CHANGE SENSOR EVERY 10 DAYS Historical ProviderMD Active DULoxetine (Cymbalta) [address] capsule [id number] Take 1 capsule (60 mg) by mouth once daily. Historical ProviderMD Active Eliquis 5 mg tablet [id number] Take 1 tablet (5 mg) by mouth 2 times a day. Historical ProviderMD Active ergocalciferol (Vitamin D-2) 1250 mcg (50,000 units) capsule [id number] Take 1 capsule (1,250 mcg) by mouth. Historical ProviderMD Active fenofibrate (Tricor) 54 mg tablet [id number] Take 1 tablet (54 mg) by mouth once daily. Historical ProviderMD Active furosemide (Lasix) 40 mg tablet [id number] Take 1 tablet (40 mg) by mouth. Historical ProviderMD Active glimepiride (Amaryl) 4 mg tablet [id number] Take 1 tablet (4 mg) by mouth early in the morning.. Patient not taking: Reported on 08/07/2024 Historical ProviderMD Active glipiZIDE (Glucotrol) 5 mg tablet [id number] Take 1 tablet (5 mg) by mouth. Patient not taking: Reported on 08/07/2024 Historical MD Lacey Active HumuLIN R U-500, Conc, Insulin 500 unit/mL CONCENTRATED injection [id number] INJECT 75 UNITS DAILY VIA CONTINUOUS SUBCUTANEOUS INFUSION. DISCARD VIAL AFTER 40 DAYS Patient not taking: Reported on 08/07/2024 Historical MD Lacey Active Jardiance 25 mg [id number] Take 1 tablet (25 mg) by mouth once daily. Historical ProviderMD Active levothyroxine (Synthroid, Levoxyl) 112 mcg tablet [id number] Take 1 tablet (112 mcg) by mouth once daily. Gloria ProviderMD Active lisinopril 40 mg tablet [id number] Take 1 tablet (40 mg) by mouth once daily. Gloria Rahman MD Active metFORMIN (Glucophage) 500 mg tablet [id number] Take 1 tablet (500 mg) by mouth 2 times daily (morning and late afternoon). Gloria ProviderMD Active metoprolol succinate XL (Toprol-XL) 100 mg 24 hr tablet [id number] TAKE 1 TABLET BY MOUTH DAILY for heart Historical ProviderMD Active Mucinex DM 60-1,200 mg tablet extended release 12 hr [id number] Take 1 tablet by mouth every 12 hours. Historical MD Lacey Active oxyCODONE-acetaminophen (Percocet) 5-325 mg tablet [id number] Take 1 tablet by mouth 2 times a day as needed. Patient not taking: Reported on 08/07/2024 Gloria Rahman MD Active pantoprazole (ProtoNix) 40 mg EC tablet [id number] Take 1 tablet (40 mg) by mouth. Historical ProviderMD Active potassium citrate CR (Urocit-K-10) 10 mEq ER tablet [id number] Take 1 tablet (10 mEq) by mouth twicea day. Historical MD Lacey Active predniSONE (Deltasone) 20 mg tablet [id number] Take 0.5 tablets (10 mg) by mouth early in the morning.. Gloria Rahman MD Active predniSONE (Deltasone) 20 mg tablet [id number] Take 2 tablets (40 mg) by mouth once daily. Patient not taking: Reported on 08/07/2024 Rosalino Padron MD Active predniSONE (Deltasone) 5 mg tablet [id number] Take 4 tablets (20 mg) by mouth once daily for 30 days, THEN 3 tablets (15 mg) once daily for 30 days, THEN 2 tablets (10 mg) once daily for 30 days, THEN1 tablet (5 mg) once daily for 14 days. Rosalino Padron MD Active spironolactone (Aldactone) 50 mg tablet [id number] Take 1 tablet (50 mg) by mouth once daily. Patient not taking: Reported on 08/07/2024 Historical MD Lacey Active tamsulosin (Flomax) 0.4 mg 24 hr capsule [id number] Take 1 capsule (0.4 mg) by mouth once daily. Historical Provider, Active traMADol (Ultram) 50 mg tablet [id number] Take 1 tablet (50 mg) by mouth. [...] Rosalino Padron MD 08/28/2024 documented in this [facility] Work Phone: 1([phone]) 266-639906-17-2025 Evaluation note* Diagnosis Onset Date Resolution Status Admit Date Fatigue noneactive September 15 12:53pm CKD (chronic [...] 16, 2024 9:59am Insulin pump titration deleted Ju 2024 9:59am Chronic respiratory failure with hypoxia chronic September 26, 2024 8:20pm Elevated troponin inactive [...] 2024 8:20pm Acute right MCA stroke deleted Ju 2024 8:20pm Ischemic cerebrovascular accident (CVA) resolved October 12, 2024 10:46am Hyperlipidemia inactive October 12, 2024 10:46am Polyneuropathy inactive October 12, 2024 10:46am Fatigue noneactive October 12 10:46am Paroxysmal atrial fibrillation acute October 27, 2024 10:16am Dyspnea on exertion resolved October 27, 2024 10:16am Ischemic cerebrovascular accident (CVA) resolved October 27, 2024 10:16am Chronic diastolic CHF (congestive heart failure) inactive October 27, 2024 10:16am Essential (primary) hypertension inactive October 27, 2024 10:16am Interstitial lung disease inactive October 27, 2024 10:16am Iron deficiency anemia due t o chronic blood loss inactive November 03 12:48pm Fatigue noneactive November 12 10:47am Chronic respiratory failure with hypoxia chronic November 25 12:33pm Chronic diastolic CHF (congestive heart failure) inactive Aug t 2024 12:33pm Interstitial lung disease inactive November 25, 2024 12:33pm Obesity inactive November 25 12:33pm KIANNA (obstructive sleep apnea) inacti ve November 25, 2024 12:33pm Rheumatoid factor positive inactive November 25, 2024 12:33pm Cellulitis resolved November 26 025 11:54am Debility resolved November 26 11:54am Sepsis resolved November 26 11:54am Chronic ulcer of thigh with fat layer exposed acute November 9:41am Current use of shelter anticoagulation acute December 17, 2024 9:41am Diabetes mellitus, type II acute December 17, 2024 9:41am Paroxysmal atrial fibrillation acute December 17, 2024 9:41am Chronic respiratory failure chronic December 17, 2024 9:41am Chronic respiratory failure with hypoxia chronic December 17, 2024 9:41am [facility] Work Phone: 1([phone]) 655-321205-19-2025 Evaluation note* Diagnosis Onset Date Resolution Status [...] 16, 2024 9:59am Insulin pump titration deleted [facility] 2024 9:59am Chronic respiratory failure with [...] 2024 8:20pm Acute right MCA stroke deleted [facility] 2024 8:20pm Ischemic cerebrovascular accident (CVA) [...] November 03 12:48pm Fatigue noneactive November 12 025 10:47am Chronic diastolic CHF (congestive heart failure) inactive [facility] 2024 12:33pm Chronic respiratory failure with hypoxia inactive November 25 12:33pm Interstitial lung disease inactive November 25, 2024 12:33pm Obesity inactive November 25 12:33pm KIANNA (obstructive sleep apnea) inacti ve November 25, 2024 12:33pm Rheumatoid factor positive inactive November 25, 2024 12:33pm Cellulitis resolved November 26 025 11:54am Debility resolved November 26 025 11:54am Sepsis resolved November 26 025 11:54am [facility] Work Phone: 1([phone]) 864-505605-15-2025 Radiology Diagnostic study [facility]05-09-2025 History of Present illness Narrative* Rosalino Padron MD - 08/07/2024 2:30 PM EDT Images from the original note were not included. Department of Medicine Division of Pulmonary, Critical Care, and Sleep Medicine Consultation [address] [facility] Patient was referred by his PCP (Dr. [...] surgery total pulmonary decortication in 2015 at [facility]. He was hospitalized in [place] from 03/02-03/04/2024 for acute hypoxic respiratory failure. [...] Review Audit Reviewed by Rivka Gerardo MA (Sr. Logistics Analyst) on 08/07/24 at 1413 Medication Order Taking? Sig Documenting Provider Last Dose Status albuterol 90 mcg/actuation inhaler [id number] Yes INHALE 2 PUFFS BY MOUTH EVERY 4 HOURS NEEDED FOR SHORTNESS OF BREATH OR WHEEZING Historical ProviderMD Active amLODIPine (Norvasc) 5 mg tablet [id number] Yes Take 1 tablet (5 mg) by mouth once daily. GloriaProMD frank Active aspirin 325 mg tablet [id number] Yes Take 1 tablet (325 mg) by mouth once daily. Historical ProviderMD Active atorvastatin (Lipitor) 80 mg tablet [id number] Yes Take 1 tablet (80 mg) by mouth once daily at bedtime. Historical ProviderMD Active betamethasone, augmented, (Diprolene) 0.05 % lotion [id number] APPLY TO RASH ON THE TRUNK OR SCALP 1-2 TIMES DAILY NEEDED Historical ProviderMD Active bismuth subsalicylate (Pepto Bismol) 262 mg chewable tablet [id number] CHEW AND SWALLOW 2 TABLETS BYMOUTH 3 TIMES A DAY for 2 weeks. max 16 tablets per 24 hours Patient not taking: Reported on 08/07/2024 Historical ProviderMD Active Brilinta 90 mg tablet [id number] Yes 1 tablet (90 mg). Historical ProviderMD Active busPIRone (Buspar) 10 mg tablet [id number] Yes Take 1 tablet (10 mg) by mouth 3 times a day. Historical ProviderMD Active clopidogrel (Plavix) 75 mg tablet [id number] Take 1 tablet (75 mg) by mouth early in the morning.. Historical ProviderMD Active dapagliflozin propanediol (Farxiga) 5 mg [id number] Take 1 tablet (5 mg) by mouth once daily. Historical ProviderMD Active Dexcom G6 Sensor device [id number] Yes USE DIRECTED FOR CONTINUOUS BLOOD GLUCOSE MONITORING, CHANGE SENSOR EVERY 10 DAYS Historical ProviderMD Active DULoxetine (Cymbalta) [address] capsule [id number] Yes Take 1 capsule (60 mg) by mouth once daily. Historical ProviderMD Active Eliquis 5 mg tablet [id number] Yes Take 1 tablet (5 mg) by mouth 2 times a day. Historical ProviderMD Active ergocalciferol (Vitamin D-2) 1250 mcg (50,000 units) capsule [id number] Take 1 capsule (1,250 mcg) by mouth. Historical ProviderMD Active fenofibrate (Tricor) 54 mg tablet [id number] Yes Take 1 tablet (54 mg) by mouth once daily. Historical ProviderMD Active furosemide (Lasix) 40 mg tablet [id number] Yes Take 1 tablet (40 mg) by mouth. Gloria Rahman MD Active glimepiride (Amaryl) 4 mg tablet [id number] Take 1 tablet (4 mg) by mouth early in the morning.. Patient not taking: Reported on 08/07/2024 Gloria Rahman MD Active glipiZIDE (Glucotrol) 5 mg tablet [id number] Take 1 tablet (5 mg) by mouth. Patient not taking: Reported on 08/07/2024 Gloria Rahman MD Active HumuLIN R U-500, Conc, Insulin 500 unit/mL CONCENTRATED injection [id number] INJECT 75 UNITS DAILY VIA CONTINUOUS SUBCUTANEOUS INFUSION. DISCARD VIAL AFTER 40 DAYS Patient not taking: Reported on 08/07/2024 Gloria Rahman MD Active Jardiance 25 mg [id number] Yes Take 1 tablet (25 mg) by mouth once daily. Gloria Rahman MD Active levothyroxine (Synthroid, Levoxyl) 112 mcg tablet [id number] Yes Take 1 tablet (112 mcg) by mouth once daily. Gloria Rahman MD Active lisinopril 40 mg tablet [id number] Yes Take 1 tablet (40 mg) by mouth once daily. Historical ProviderMD Active metFORMIN (Glucophage) 500 mg tablet [id number] Take 1 tablet (500 mg) by mouth 2 times daily (morning and late afternoon). Historical MD Lacey Active metoprolol succinate XL (Toprol-XL) 100 mg 24 hr tablet [id number] Yes TAKE 1 TABLET BY MOUTH DAILY for heart Historical MD Lacey Active Mucinex DM 60-1,200 mg tablet extended release 12 hr [id number] Take 1 tablet by mouth every 12 hours. Gloria Rahman MD Active oxyCODONE-acetaminophen (Percocet) 5-325 mg tablet [id number] Take 1 tablet by mouth 2 times a day as needed. Patient not taking: Reported on 08/07/2024 Gloria Rahman MD Active pantoprazole (ProtoNix) 40 mg EC tablet [id number] Yes Take 1 tablet (40 mg) by mouth. Gloria ProviderMD Active potassium citrate CR (Urocit-K-10) 10 mEq ER tablet [id number] Take 1 tablet (10 mEq) by mouth twicea day. Historical ProviderMD Active predniSONE (Deltasone) 20 mg tablet [id number] Take 0.5 tablets (10 mg) by mouth early in the morning.. Historical Provider, Active predniSONE (Deltasone) 20 mg tablet [id number] Take 2 tablets (40 mg) by mouth once daily. Patient not taking: Reported on 08/07/2024 Rosalino Padron MD Active spironolactone (Aldactone) 50 mg tablet [id number] Take 1 tablet (50 mg) by mouth once daily. Patient not taking: Reported on 08/07/2024 Historical Provider, Active tamsulosin (Flomax) 0.4 mg 24 hr capsule [id number] Yes Take 1 capsule (0.4 mg) by mouth once daily.Historical Provider, Active traMADol (Ultram) 50 mg tablet [id number] Take 1 tablet (50 mg) by mouth. [...] Rosalino Padron MD 08/07/2024 documented in this [facility] Work Phone: 1(161) 845-773505-09-2025 Instructions* Patient Instructions* Rosalino Padron MD - [...] a breathing or a walking test Call [phone] to schedule EKG's, Echocardiograms and Cardiopulmonary Stress Tests. Call [phone] to schedule Radiology tests such as Nuclear Medicine Stress Tests, CT Scans, and MRI's. Should you have any questions Please Call our pulmonary nurse Linda Marie at [phone] or my assistant chief nursing officer Puneet Leone at [phone] documented in this [facility] Work Phone: 1([phone]) 311-725105-08-2025 Evaluation note* Diagnosis Onset Date Resolution Status [...] 9:59am Acute right MCA stroke acute Ju 2024 8:20pm Hyperlipidemia acute September 26, 2024 [...] loss inactive November 03, 2 025 12:48pm [facility] [employer] Work Phone: 1([phone]) 322-918005-08-2025 Evaluation note* Diagnosis Onset Date Resolution Status [...] 9:59am Acute right MCA stroke acute Ju 2024 8:20pm Hyperlipidemia acute September 26, 2024 [...] factor positive chronic November 25, 2024 12:33pm [facility] [employer] Work Phone: [phone]) 407-100305-08-2025 Evaluation note* Diagnosis Onset Date Resolution Status [...] September 16 9:59am Insulin pump titration chronic [facility] 2024 9:59am Microalbuminuria due to type 2 diabetes mellitus chronic September 16 9:59am Presence of insulin pump chronic September 16, 2024 9:59am Essential (primary) hypertension inactive September 16, 2024 9:59am Hypothyroidism inactive September 16, 2024 9:59am Obesity inactive September 16 9:59am Acute right MCA stroke acute [facility] 2024 8:20pm Hyperlipidemia acute September 26, [...] o chronic blood loss inactive November 03, 025 12:48pm Fatigue noneactive November 12 025 10:47am Chronic diastolic CHF (congestive heart failure) chronic [facility] t 2024 12:33pm Rheumatoid factor positive chronic November 25, 2024 12:33pm Chronic respiratory failure with hypoxia inactive November 25 12:33pm Interstitial lung disease inactive November 25, 2024 12:33pm Obesity inactive November 25 12:33pm KIANNA (obstructive sleep apnea) inacti ve November 25, 2024 12:33pm Cellulitis acute November 26, 025 11:54am Debility acute November 26, 025 11:54am Sepsis acute November 26, 025 11:54am [facility] Work Phone: 1([phone]) 851-779304-07-2025 Evaluation note* Diagnosis Onset Date Resolution Status [...] 8:20pm Hyperlipidemia acute October 12, 2024 10:46am [facility] Work Phone: [phone]) 839-573004-07-2025 Evaluation note* Diagnosis Onset Date Resolution Status [...] 2024 10:46am Fatigue noneactive October 12 10:46am [facility] Work Phone: 1([phone] 963-171604-07-2025 Evaluation note* Diagnosis Onset Date Resolution Status [...] 9:59am Acute right MCA stroke acute Ju 2024 8:20pm Hyperlipidemia acute September 26, 2024 [...] fibrillation inact nicole October 27, 2024 10:16am [facility] Work Phone: 1([phone]) 802-802704-07-2025 Evaluation note* Diagnosis Onset Date Resolution Status [...] 9:59am Acute right MCA stroke acute Ju 2024 8:20pm Hyperlipidemia acute September 26, 2024 [...] loss inactive November 03, 2 025 12:48pm [facility] [employer] Work Phone: 1([phone]) 153-584403-28-2025 History of Present illness Narrative* Rosalino Padron MD - 06/26/2024 11:30 AM EDT Images from the original note were not included. Department of Medicine Division of Pulmonary, Critical Care, and Sleep Medicine Consultation [address] [facility] Patient was referred by his PCP (Dr. [...] surgery total pulmonary decortication in 2015 at [facility]. He was hospitalized in [place] from 03/02-03/04/2024 for acute hypoxic respiratory failure. [...] Review Audit Reviewed by Suly Johnston MA (Sr. Logistics Analyst) on 06/26/24 at 1224 Medication Order Taking? Sig Documenting Provider Last Dose Status albuterol 90 mcg/actuation inhaler [id number] Yes INHALE 2 PUFFS BY MOUTH EVERY 4 HOURS NEEDED FOR SHORTNESS OF BREATH OR WHEEZING Historical ProviderMD Active amLODIPine (Norvasc) 5 mg tablet [id number] Take 1 tablet (5 mg) by mouth once daily. Historical ProviderMD Active aspirin 325 mg tablet [id number] Take 1 tablet (325 mg) by mouth once daily. Historical ProviderLORNActive atorvastatin (Lipitor) 80 mg tablet [id number] Take 1 tablet (80 mg) by mouth once daily at bedtime.Historical ProviderMD Active betamethasone, augmented, (Diprolene) 0.05 % lotion [id number] Yes APPLY TO RASH ON THE TRUNK OR SCALP 1-2 TIMES DAILY NEEDED Historical ProviderMD Active bismuth subsalicylate (Pepto Bismol) 262 mg chewable tablet [id number] Yes CHEW AND SWALLOW 2 TABLETS BY MOUTH 3 TIMES A DAY for 2 weeks. max 16 tablets per 24 hours Historical ProviderMD Active Brilinta 90 mg tablet [id number] Yes 1 tablet (90 mg). Historical ProviderMD Active busPIRone (Buspar) 10 mg tablet [id number] Take 1 tablet (10 mg) by mouth 3 times a day. Gloria Rahman MD Active clopidogrel (Plavix) 75 mg tablet [id number] Yes Take 1 tablet (75 mg) by mouth early in the morning.. Gloria Rahman MD Active dapagliflozin propanediol (Farxiga) 5 mg [id number] Yes Take 1 tablet (5 mg) by mouth once daily. Gloria Rahman MD Active Dexcom G6 Sensor device [id number] Yes USE DIRECTED FOR CONTINUOUS BLOOD GLUCOSE MONITORING, CHANGE SENSOR EVERY 10 DAYS Historical MD Lacey Active DULoxetine (Cymbalta) [address] capsule [id number] Take 1 capsule (60 mg) by mouth once daily. Gloria Rahman MD Active Eliquis 5 mg tablet [id number] Take 1 tablet (5 mg) by mouth 2 times a day. Gloria Rahman MD Active ergocalciferol (Vitamin D-2) 1250 mcg (50,000 units) capsule [id number] Yes Take 1 capsule (1,250 mcg) by mouth. Historical ProviderMD Active fenofibrate (Tricor) 54 mg tablet [id number] Take 1 tablet (54 mg) by mouth once daily. Historical MD Lacey Active furosemide (Lasix) 40 mg tablet [id number] Yes Take 1 tablet (40 mg) by mouth. Historical MD Lacey Active glimepiride (Amaryl) 4 mg tablet [id number] Yes Take 1 tablet (4 mg) by mouth early in the morning..Gloria Rahman MD Active glipiZIDE (Glucotrol) 5 mg tablet [id number] Yes Take 1 tablet (5 mg) by mouth. Historical ProviderMD Active HumuLIN R U-500, Conc, Insulin 500 unit/mL CONCENTRATED injection [id number] Yes INJECT 75 UNITS DAILY VIA CONTINUOUS SUBCUTANEOUS INFUSION. DISCARD VIAL AFTER 40 DAYS Historical MD Lacey Active Jardiance 25 mg [id number] Take 1 tablet (25 mg) by mouth once daily. Historical ProviderMD Active levothyroxine (Synthroid, Levoxyl) 112 mcg tablet [id number] Take 1 tablet (112 mcg) by mouth once daily. Gloria Rahman MD Active lisinopril 40 mg tablet [id number] Take 1 tablet (40 mg) by mouth once daily. Historical ProviderMD Active metFORMIN (Glucophage) 500 mg tablet [id number] Take 1 tablet (500 mg) by mouth 2 times daily (morning and late afternoon). Historical ProviderMD Active metoprolol succinate XL (Toprol-XL) 100 mg 24 hr tablet [id number] TAKE 1 TABLET BY MOUTH DAILY for heart Historical ProviderMD Active Mucinex DM 60-1,200 mg tablet extended release 12 hr [id number] Yes Take 1 tablet by mouth every 12 hours. Historical ProviderMD Active oxyCODONE-acetaminophen (Percocet) 5-325 mg tablet [id number] Take 1 tablet by mouth 2 times a day as needed. Historical ProviderMD Active pantoprazole (ProtoNix) 40 mg EC tablet [id number] Yes Take 1 tablet (40 mg) by mouth. Historical ProviderMD Active potassium citrate CR (Urocit-K-10) 10 mEq ER tablet [id number] Yes Take 1 tablet (10 mEq) by mouth twice a day. Historical ProviderMD Active predniSONE (Deltasone) 20 mg tablet [id number] Yes Take 0.5 tablets (10 mg) by mouth early in the morning.. Historical ProviderMD Active spironolactone (Aldactone) 50 mg tablet [id number] Yes Take 1 tablet (50 mg) by mouth once daily. Historical ProviderMD Active tamsulosin (Flomax) 0.4 mg 24 hr capsule [id number] Take 1 capsule (0.4 mg) by mouth once daily. Historical ProviderMD Active traMADol (Ultram) 50 mg tablet [id number] Yes Take 1 tablet (50 mg) by [...] ab panel ordered on 06/26/2024. -will discuss CT on follow up. -Discussed antifibrotic therapy. Not [...] Rosalino Padron MD 06/26/2024 documented in this [facility] Work Phone: 1([phone]) 172-346703-28-2025 Instructions* Patient Instructions* Rosalino Padron MD - [...] for black mold. You can contact [employer] in [place], phone number is [phone] for a home inspection We will see you back in clinic in 1-2 months/weeks For scheduling purposes: Call [phone] to schedule a breathing or a walking test Call [phone] to schedule EKG's, Echocardiograms and Cardiopulmonary Stress Tests. Call [phone] to schedule Radiology tests such as Nuclear Medicine Stress Tests, CT Scans, and MRI's. Should you have any questions Please Call our pulmonary nurse Linda Marie at [phone] or my assistant chief nursing officer Puneet Leone at [phone] documented in this [facility] Work Phone: 1([phone]) 513-196303-06-2025 Evaluation note* Diagnosis Onset Date Resolution Status [...] apnea) chroni c September 26, 2024 5:17pm [facility] Work Phone: 1([phone]) 986-858803-06-2025 Evaluation note* Diagnosis Onset Date Resolution Status [...] 2024 8:20pm Acute right MCA stroke acute Ju 2024 8:20pm Elevated troponin acute September 262024 [...] apnea) chroni c September 26, 2024 8:20pm [facility] Work Phone: [phone]) 744-672402-20-2025 Evaluation note* Diagnosis Onset Date Resolution Status [...] 2024 11:16am Fatigue noneactive September 15 12:53pm [facility] Work Phone: [phone] Telephone encounter Note* Telephone Encounter - Oziel [...] 1 year. Sooner prn. MD Jose Antonio [facility] Work Phone: [phone] Miscellaneous Notes* Telephone Encounter - Oziel Culp [...] 1 year. Sooner prn. MD Jose Antonio documented in this [facility]02-05-2025 Note* Perioperative Nursing Note - Mendel River RN - 05/06/2024 4:02 PM EST Phase 2 care completed. Iv removed and dc instructions provided. Will dc to home with family Right groin site benign and neuro unchanged [facility] 0 [id number] Note* Perioperative Nursing Note - Mendel River RN - 05/06/2024 4:02 PM EST Phase 2 care completed. Iv removed and dc instructions provided. Will dc to home with family Right groin site benign and neuro unchanged [facility] 0 [id number] Miscellaneous Notes* Perioperative Nursing Note - Mendel River RN - 05/06/2024 4:02 PM EST Phase 2 care completed. Iv removed and dc instructions provided. Will dc to home with family Right groin site benign and neuro unchanged NIH 0 documented in this [facility]02-05-2025 NotePatient: Krunal Leos Procedure Summary Date: 05/06/24 Room / Location: [facility] Special Procedures Anesthesia Start: 124 Anesthesia Stop: [...] discharged once all PACU criteria has been met.[facility] [id number] NotePatient: Krunal Leos Procedure Summary Date: 05/06/24 Room / Location: [facility] Special Procedures Anesthesia Start: 1243 Anesthesia Stop: [...] Patient reports no pain in PACU (G2149) [facility] Anesthesiology Smoking Abstinence The patient is [...] Allowed opportunity for questions and acknowledgement of understanding.[facility]02-05-2025 Nurse Note* Se Hensley RN - 05/06/2024 1:47 PM EST Patient arrived from home, Dr. Culp in to speak with the patient regarding DCA with possible carotid stenting, consent obtained. Patient was placed supine on exam table prepped and draped in sterile fashion. Telemetry monitors placed, sedation provided by PROOF PRESS OPERATOR. Patient tolerated procedure well. Transfer to ICU. [id number] Nurse Note* Se Hensley RN - 05/06/2024 1:47 PM EST Patient arrived from home, Dr. Jose Antonio schilling to speak with the patient regarding DCA with possible carotid stenting, consent obtained. Patient was placed supine on exam table prepped and draped in sterile fashion. Telemetry monitors placed, sedation provided by PROOF PRESS OPERATOR. Patient tolerated procedure well. Transfer to ICU. * Se Hensley RN - 05/05/2024 1:45 PM EST Report given to IR rn, neuro assessment completed along with groin site check. documented in this [facility]02-05-2025 Consult note* Rianna Yan MD - 05/06/2024 [...] PLAN: 1. Obtain P2 Y12 study 2. [place] Brilinta 90 mg twice daily x 30 [...] 10 to 15 minutes. Was hospitalized at [place] and had Plavix added at that time. [...] Symptoms resolved. He was again hospitalized at [place] [facility]. No medicationchanges were made. April 2024: [...] care Cc: Mey Loya APRN - * [employer] Phone: 1(355) 412-429602-05-2025 Consult note* Rianna Yan MD - 05/06/2024 [...] PLAN: 1. Obtain P2 Y12 study 2. [place] Brilinta 90 mg twice daily x 30 [...] 10 to 15 minutes. Was hospitalized at [place] and had Plavix added at that time. [...] Symptoms resolved. He was again hospitalized at [facility]. No medicationchanges were made. April 2024: [...] Loya APRN - * documented in this [facility]02-05-2025 NoteIVR History & Physical Inpatient consult to Anesthesiology-- Consult performed by: DEJUAN Leal CNP Consult ordered by: DEJUAN Mak CNP Name: Krunal Leos : 1965 (Age-58 y.o.) Date of Service: Pt seen/examined on 05/06/2024 Procedure Information Date/Time: 05/06/24 1000 Procedure: IR ANGIOGRAM CEREBRAL W POSSIBLE INTERVENTION Location: [facility] Special Procedures Chief Complaint: Carotid stenosis History [...] Cardiac murmur - managed by cardiology in [place] - BP controlled and HR controlled - [...] for gait problem. Skin (more content not included)...[facility]02-05-2025 Note Patient: Krunal Leos Procedure Information Date/Time: 02/05/25 1000 Procedure: IR ANGIOGRAM CEREBRAL W POSSIBLE INTERVENTION Location: [facility] Special Procedures Relevant Problems Anesthesia (+) History of non-ST elevation myocardial infarction (NSTEMI) (+) Obstructive sleep apnea syndrome Cardio (+) Congestive heart failure (HCC) (+) Hyperlipidemia (+) Paroxysmal atrial fibrillation (HCC) (+) Primary hypertension (+) Stenosis of carotid artery Endo (+) Hypothyroidism (+) 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 with hyperglycemia (HCC) (+) Type II diabetes mellitus with complication (CMS/HCC) ([facility]) /Renal (+) Benign prostatic hyperplasia with urinary obstruction (+) Calculus of kidney (+) Chronic kidney disease (+) Congenital cystic kidney disease Neuro/Psych (+) Cerebrovascular accident (CVA), unspecified mechanism ([facility]) (+) Ischemic cerebrovascular accident (CVA) ([facility]) Pulmonary (+) Obstructive sleep apnea syndrome Cardiovascular (+) Stenosis of carotid artery Other (+) Hodgkin lymphoma ([facility]) Past Medical History: Past Medical History: No date: A-fib (CMS/HCC) ([facility]) No date: Bilateral carotid artery stenosis No date: BPH (benign prostatic hyperplasia) No date: CHF (congestive heart failure) ([facility]) No date: Chronic idiopathic pulmonary fibrosis ([facility]) No date: CVA (cerebral vascular accident) ([facility]) No date: DM (diabetes mellitus), type 2 ([facility]) No date: HTN (hypertension) No date: Hyperlipidemia [...] no echo on file, yearly appointments with property technician in [place] DM2 - on insulin pump, has basal [...] infarct, age indeterminate Equipment Requests: Additional Equipment [facility] Nurse Note* Se Hensley RN - 05/05/2024 1:45 PM EST Report given to MARIO edwards, neuro assessment completed along with groin site check. [facility] [id number] History of Present illness Narrative* Suzy Jauregui [...] and has been given a timeline of "approximately 5 years" of life remaining. Past Medical History: CKD, [...] [facility] [place] Dexcom G6 Sensor [facility], USE DIRECTED FOR CONTINUOUS BLOOD GLUCOSE MONITORING, [...] Stallworth MD ergocalciferol (Vitamin D2) 1.25 MG (79455 UT) capsule Take 1 capsule by mouth [...] 2023. 10/06/23 01/06/24 Harmeet Stallworth MD HYDROcodone-acetaminophen (Wells) 5-325 MG tablet Take 1 tablet by mouth 2-3 times daily as needed for pain 02/14/23 Historical ProviderMD insulin regular (HumuLIN R,NovoLIN R) 100 UNIT/ML [...] 50 mg by mouth daily. 09/06/23 Historical ProviderMD tamsulosin (Flomax) 0.4 MG 24 hr capsule Take 0.4 mg by mouth daily. 12/11/23 Historical ProviderMD traMADol (Ultram) 50 MG tablet Take 50 mg by mouth. 12/10/22 Historical ProviderMD Allergies: Metoclopramide Social History Socioeconomic History Marital [...] PROTIME 10.9 10/04/2023 No results found for: "VLDL" CONSTITUTIONAL: awake, alert, cooperative, no apparent distress [...] prior imaging and most recent CT from [facility]) and not his right carotid artery. [...] up pending results of cerebral angiography. Suzy Juventino, MD Vascular Surgery documented in this [facility]01-25-2025 [facility]01-23-2025 Note* Care Coordination - Jessica Clifton RN [...] Surgery. Follow signs around the hospital to "Main Entrance" which islocated at [address] [facility] [address]. Turn onto "[address]" from [facility]. You may use [employer]. Each patient to receive one validation ticket for [employer]. It is also possible to park in the Main Parking Garage. Proceed to bridge into hospital and check in with Same Day Surgery. [facility] [id number] NoteSpoke with patient. Reviewed instructions for procedure. [...] Surgery. Follow signs around the hospital to "Main Entrance" which is located at [address] Turn onto "[address]" from [facility]. You may use [employer]. Each patient to receive one validation ticket for [employer]. It is also possible to park in the Main Parking Garage. Proceed to bridge into hospital and check in with Same Day Surgery.[facility]01-23-2025 Miscellaneous Notes* Care Coordination - Jessica [...] Surgery. Follow signs around the hospital to "Main Entrance" which islocated at [address] "[address]" from [facility]. You may use [employer]. Each patient to receive one validation ticket for [employer]. It is also possible to park in the Main Parking Garage. Proceed to bridge into hospital and check in with Same Day Surgery. documented in this [facility]01-22-2025 Evaluation note* Diagnosis Onset Date Resolution Status [...] 2:27pm Hyperlipidemia acute August 17, 2024 11:16am [facility] Work Phone: 1(571) 954-175501-16-2025 Evaluation note* Diagnosis Onset Date Resolution Status Admit Date CKD (chronic kidney disease) chronic April 16, 2024 9:21am Diabetes chronic April 16, 2024 9:21am Essential (primary) hypertension chronic April 16 9:21am Hypothyroidism chronic April 162024 9:21am Insulin pump titration chronic [facility] 2024 9:21am Obesity chronic April 16, [...] CHF (congestive heart failure) chronic Janua 2024 1:36pm Chronic respiratory failure with hypoxia [...] 1:22pm Fatigue noneactive August 06, 2024 2:27pm [facility] Work Phone: 1(439) 925-636801-15-2025 [facility]01-12-2025 Evaluation note* Diagnosis Onset Date Resolution Status [...] April 162024 9:21am Insulin pump titration chronic [facility] 2024 9:21am Obesity chronic April 16, [...] 1:22pm Fatigue noneactive August 06, 2024 2:27pm [facility] Work Phone: 1(100) 138-989512-27-2024 [facility]12-04-2024 [facility]11-13-2024 Telephone encounter Note* Telephone Encounter - DEJUAN Mak CNP - 02/12/2024 10:29 AM EST Notes and imaging reviewed with Dr. Culp. The left internal carotid artery has approximately 80% stenosis of the left internal carotid artery. [facility] left internal [facility] artery. The patient will need to continue aspirin 81 mg daily. Five days prior to surgery he should hold Eliquis. He will start Plavix 75mg daily 5 days prior to procedure in addition to his aspirin 81 mg. Pending the results of angiogram we will determine when to resume Eliquis. [facility] Work Phone: 1(297) 135-323211-13-2024 Miscellaneous Notes* Telephone Encounter - DEJUAN Mak [...] Name of caller: Megan Contact phone number: [phone] Relationship to Patient: care team amanda Provider: Jose Antonio Practice: Endovascular Chief Complaint/Reason for Call: please send all lab work from September to fax [phone] [facility] Best time of day caller can be reached: any Patient advised that office/PCP has 24-48 business hours to return their call: No documented in this [facility]11-13-2024 Miscellaneous Notes* Telephone Encounter - DEJUAN Mak [...] Name of caller: Megan Contact phone number: [phone] Relationship to Patient: care team amanda Provider: Jose Antonio Practice: Endovascular Chief Complaint/Reason for Call: please send all lab work from September to fax [phone] [facility] Best time of day caller can be reached: any Patient advised that office/PCP has 24-48 business hours to return their call: No documented in this [facility]11-13-2024 Telephone encounter Note* Telephone Encounter - Lisa Sandoval - 02/12/2024 9:13 AM EST This patient left a voicemail returning a call regarding his test results with Dr. Hutton Please advise:) [facility] [id number] Telephone encounter Note* Telephone Encounter - Ena Enriquez - 02/06/2024 7:52 AM EST Name of caller: Megan Contact phone number: [phone] Relationship to Patient: care team amanda Provider: Jose Antonio Practice: Endovascular Chief Complaint/Reason for Call: please send all lab work from September to fax [phone] [facility] Best time of day caller can be reached: any Patient advised that office/PCP has 24-48 business hours to return their call: No [facility] [id number] [facility]10-07-2024 History of Present illness Narrative* Oziel Culp MD - 01/06/2024 11:00 AM EDT History of Present Illness: 58 yo man here for fu stroke and bilateral ICA stenosis. He originally presented 09/2023 for left hemiparesis and was transferred to [facility] from [facility]. He was found to have right hemispheric [...] episode of left hemiparesis. He went to [facility] and was found to have increased stroke burden of the right hemisphere. Vascular surgery wasconsulted and no surgical procedure was recommended. He had a 3rd event of left hemiparesis the following week and a CT was done at [place] [facility]. At that time clopidogrel was added (in addition to ASA and Eliquis). The patient returned to normal and was discharged from the ED to home. 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 He is anonsmoker. He does report [...] 2023., Disp: 30 tablet, Rfl: 0 HYDROcodone-acetaminophen (Wells) 5-325 MG tablet, Take 1 tablet by [...] , Rfl: ergocalciferol (Vitamin D2) 1.25 MG (17226 UT) capsule, Take 1 capsule by mouth [...] arm) Pulse 72 Ht 1.753 m (5' 9") Wt (!) 142 kg (312 lb) BMI 46.07 kg/m Neurological Examination: Higher Functions: Mental Status Exam: Level of Alertness:Awake Orientation: "person","place","time", Memory:normal Fund of Knowledge: normal Attention/Concentration: normal [...] and clopidogrel I have requested images from [facility] to evaluate distribution of new ischemic [...] Smoking cessation counseling: Yes documented in this [facility]07-06-2024 Plan of care note* Care Plan - [...] address these barriers include . Patient discharged. [facility] [id number] Miscellaneous Notes* Care Plan - Dariana Lawrence [...] include reorient frequently. * Care Coordination - Girs Keith RN - 10/04/2023 11:19 AM EDT Care Managment Initial Assessment Date: 10/04/2023 Patient Name: Krunal Leos : 1965 Patient Information Source of Information: Patient Cognition/Language: WFL - Within Functional Limits Permission given to speak with patient assistance representative/caregiver as indicated: Confirmation of Payer with patient/family: Yes Payer Name: Medical [place] : No Confirmation of Primary Care Physician: [...] 0 x 3. He was transferred from [facility] with CVA/TIA. Vascular and Neurology have been consulted. Needs carotid US. Anticipate home with no needs when stable.. . Gris Keith RN documented in this encounterSNorwalk Memorial HospitalLnsrux93-11-5222 Nurse Note* Dariana Lawrence RN - 10/05/2023 2:38 PM EDT Patient discharged at this time. Patient alert and oriented, reviewed discharge instructions with patient and daughter. PIV removed, tele removed. [facility] [id number] Nurse Note* Dariana Lawrence RN - 10/05/2023 2:38 PM EDT Patient discharged at this time. Patient alert and oriented, reviewed discharge instructions with patient and daughter. PIV removed, tele removed. * Dalila Helms RN - 10/03/2023 7:30 PM EDT Pt arrived from [facility], ambulated to bed, NIH scale 1, pt A&O x 4, denies numbness ortingling, denies headache or dizziness, denies needs at this time, call light and belongings withinreach, will monitor. documented in this [facility]07-06-2024 Hospital course Narrative* Harmeet Stallworth MD - [...] level of the V3 extending beyond the wvioy-om-fckm with reconstitution. Atherosclerosis of the cavernous and [...] <0.012 <0.012 Procalcitonin: No results found for: "PROCAL" COVID-19 PCR: No results for input(s): "COVID19" in the last 72 hours. Objective: Vitals: [...] Complexity: follow up within 7-14 calendar days (83370) [] Severe Complexity: follow up within 7 calendar days (46336) FOLLOW UP TESTING, PENDING RESULTS OR REFERRALS AT TRANSITIONAL CARE VISIT: [] Yes [] No PENDING STUDIES: DISPOSITION: Home FACILITY/HOME CARE AGENCY NAME: Follow up with Suzy Jauregui MD [address] [facility] [address] [facility] [phone] Call Call your surgeon in 2 days & schedule follow-up, as needed or follow-up for ultrasound survaliance Oziel Culp MD [address] [facility] [address] Schedule an appointment as soon as possible for a visit in 1 week(s) Pamela Morris MD [address] [facility] [phone] Schedule an appointment as soon as possible for a visit in 1 week(s) Radha Khan [address] [facility] [phone] Schedule an appointment as soon [...] MD 10/05/2023, 1:36 PM documented in this [facility]07-06-2024 History of Present illness Narrative* Harmeet Stallworth [...] level of the V3 extending beyond the hfsho-pj-edgb with reconstitution. Atherosclerosis of the cavernous and [...] <0.012 <0.012 Procalcitonin: No results found for: "PROCAL" COVID-19 PCR: No results for input(s): "COVID19" in the last 72 hours. Objective: Vitals: [...] Contact: Tia Leos Relation: Spouse Preferred language: [place] Possum Trapper needed? No Secondary Emergency Contact: Clarisse Chris Mobile Relation: Daughter Preferred language: [place] Possum Trapper needed? No Harmeet Stallworth MD Division of Hospitalist Medicine Inpatient Medical Services/[facility] [place] [facility] * Brenna Carrion - 10/05/2023 8:22 AM EDT Nutrition rescreen completed. Chart reviewed. Patient to be monitored and followed by the diet dialysis chief equipment technician. Dietitian available upon request. * Fran Lewis PT - 10/04/2023 9:32 AM EDT Images from the original note were not included. PHYSICAL THERAPY [facility] Initial Evaluation Name/MRN: Krunal Leos ([id number]) Evaluation Date: 10/04/2023 Date of : 1965 Admission Date: 10/03/2023 7:30 PM Age: 58 y.o. Room/Bed: W4-435/W4-435 A Discharge Recommendation: Home independently Equipment Needed: [...] , dtr, son-in-law. Two step entry to [employer] home. Pt drives, works at [employer]. Son-in-law mows lawn and often orders groceries [...] of Care supervision is transferred to a [facility] Physical Therapist. Goals and/or treatment plan was established in collaboration with patient/family/other representatives. * Harmeet Stallworth MD - 10/04/2023 8:22 AM EDT Hospitalist Progress Note 10/04/2023 Subjective: Admit Date: 10/03/2023 PCP: RADHA KHAN Room#: W2-191/W2-305 A Brief Hospital course: Krunal Leos is [...] level of the V3 extending beyond the uaoci-qh-vvaj with reconstitution. Atherosclerosis of the cavernous and [...] ANIONGAP 11 LIVER PROFILE:No results for input(s): "AST", "ALT", "BILITOT", "ALKPHOS", "PROT" in the last 72 hours. No lab exists for component: "LABALBU" PT/INR: No results for input(s): "PROTIME", "INR" in the last 72 hours. CARDIAC ENZYMES: No results for input(s): "TROPONINI" in the last 72 hours. Procalcitonin: No results found for: "PROCAL" COVID-19 PCR: No results for input(s): "COVID19" in the last 72 hours. Objective: Vitals: [...] Contact: Tia Leos Relation: Spouse Preferred language: [place] Possum Trapper needed? No Secondary Emergency Contact: Clarisse Chris Mobile Relation: Daughter Preferred language: [place] Possum Trapper needed? No Harmeet Stallworth MD Division of Hospitalist Medicine Inpatient Medical Services/[facility] documented in this encounterSNorwalk Memorial [id number] Plan of care note* Care Plan - [...] to address these barriers include reorient frequently. [facility] [id number] Hospital Discharge instructions* Discharge Instructions* Nely Lambert [...] and the need for follow-up with a physician/TANK FARM ATTENDANT/PA after discharge. NELY LAMBERT RN on 10/04/23 [...] through Care Everywhere. * Recovery After Stroke ([place]) * Caring for a Loved One After a Stroke ([place]) * Stroke ([place]) documented in this [facility]07-05-2024 Note* Care Coordination - Gris Keith RN - 10/04/2023 11:19 AM EDT Care Managment Initial Assessment Date: 10/04/2023 Patient Name: Krunal Leos : 1965 Patient Information Source of Information: Patient Cognition/Language: WFL - Within Functional Limits Permission given to speak with patient assistance representative/caregiver as indicated: Confirmation of Payer with patient/family: Yes Payer Name: Medical [place] : No Confirmation of Primary Care Physician: [...] 0 x 3. He was transferred from [facility] with CVA/TIA. Vascular and Neurology have been consulted. Needs carotid US. Anticipate home with no needs when stable.. . Gris Keith RN [facility]07-05-2024 Note* Care Coordination - Gris Keith RN - 10/04/2023 11:19 AM EDT Care Managment Initial Assessment Date: 10/04/2023 Patient Name: Krunal Leos : 1965 Patient Information Source of Information: Patient Cognition/Language: WFL - Within Functional Limits Permission given to speak with patient assistance representative/caregiver as indicated: Confirmation of Payer with patient/family: Yes Payer Name: Medical [place]: No Confirmation of Primary Care Physician: Confirmed [...] 0 x 3. He was transferred from [facility] with CVA/TIA. Vascular and Neurology have been consulted. Needs carotid US. Anticipate home with no needs when stable.. . Gris Keith RN [facility] HospitalLmabke30-29-3707 Consult note* Oziel Culp MD - 10/04/2023 10:09 AM EDTAssociated Order(s): Inpatient consult to Endovascular Neurology-- Inpatient consult to Endovascular Neurology-- Consult performed by: Mey Loya APRN - CARRIAGE SETTER Consult ordered by: Raphael Stone MD Reason for consult: vertebbral artery occlusion/ stenosis History Of Present Illness Krunal Leos is a 58 y.o. male presenting with left face and hand weakness in setting of chronic dizziness. Pt does have history of atrial fibrillation on Eliquis. Pt reports shelter episodic room spinning with diaphoresis that lasts [...] and symmetric in all four extremities. Coordination Sdleoa-we-ddme, rapid alternating movements and nmqy-nq-zqon normal bilaterally without dysmetria. Awake and alert [...] Team, ., . Personal review of: Imaging,Labs,ECHO},.},. [employer] Phone: 1(373) 860-775707-05-2024 Consult note* Oziel Culp MD - 10/04/2023 10:09 AM EDTAssociated Order(s): Inpatient consult to Endovascular Neurology-- Inpatient consult to Endovascular Neurology-- Consult performed by: Mey Loya APRN - CARRIAGE SETTER Consult ordered by: Raphael Stone MD Reason for consult: vertebbral artery occlusion/ stenosis History Of Present Illness Krunal Leos is a 58 y.o. male presenting with left face and hand weakness in setting of chronic dizziness. Pt does have history of atrial fibrillation on Eliquis. Pt reports shelter episodic room spinning with diaphoresis that lasts [...] and symmetric in all four extremities. Coordination Kddaef-ni-bayk, rapid alternating movements and ikkd-cv-zyls normal bilaterally without dysmetria. Awake and alert [...] Name: Krunal Leos Patient : 1965 Acct: [id number] Date of Admission: 10/03/2023 Room/Bed: [facility] A PCP: RADHA KHAN History of Present Ilness: 58 y.o. is man with the chief Complaint of: transferred from [facility] evaluation of severe cerebrovascular disease presenting with left facial and hand weakness which occurred in the setting of 3 yrs history of "dizziness" acutely worsen in the last few days. At OSH CTA demonstrated presence of severe BA stenosis and occlusion of the left vertebral artery which apparently is symptomatic based on acute IS findings in MRI from Currently on Eliquis and ASA , ( Cymbalta also with platelet function altering effect ) However also receiving Lasix 40 abd NS at 50 BP [facility] Patient feeling much better not active complaints [...] tablet 112 mcg, 112 mcg, Oral, qASavannah COLE, Michael Rico MD, 112mcg at 10/04/23 0555 metoprolol succinate XL (Toprol-XL) 24 hr tablet 100 mg, 100 mg, Oral, Daily, Michael Rico MD pantoprazole (ProtoNix) EC tablet 40 mg, 40 mg, Oral, qAM DOUGLAS, Michael Rico MD, 40 mg at 10/04/23 [...] 0.4 mg, 0.4 mg, Oral, Daily, Michael Rioc MD Continuous Infusions: sodium chloride, 50 mL/hr [...] reflex present -X Palate:intact -XI Shoulder shrug: {INTACT/ABNORMAL:[id number]::"intact"Normal -XII Tongue movement: Normal Funduscopic Exam: normal, [...] 401 ms QTC Interval 453 ms P [place] 12 degrees QRS [place] -16 degrees T Wave [place] [address] Interval 160 ms POCT glucose meter Collection Time: 10/04/23 6:46 AM Result Value Ref Range Glucose 193 (H) 70 - 100 mg/dL Basic metabolic panel Collection Time: 07/05/24 7:36 AM Result Value Ref Range SODIUM [...] the left vertebral artery MRI brain from [facility] review ASSESSMENT / PLAN / SUGGESTIONS : [...] in HPI LABS: No results found for: "CREATININE" No results found for: "WBC", "HGB", "HCT", "MCV", "PLT" No results found for: "INR", "PROTIME" No results found for: "VLDL" PHYSICAL EXAM: Vitals: 10/04/23 0620 BP: 116/73 [...] Signal [] LABS: No results found for: "WBC", "HGB", "HCT", "PLT", "PROTIME", "INR", "PTT", "K", "BUN", "CREATININE" VASCULAR TESTING: Completed at OSH . Associated [...] agreeable to the plan. documented in this [facility]07-05-2024 Consult note* Pili Connolly MD - 10/04/2023 8:31 AM EDTAssociated Order(s): IP CONSULT TO NEUROLOGY; IP CONSULT TO STROKE TEAM Images from the original note were not included. INITIAL CONSULT NOTE. STROKE SERVICE Patient Name: Krunal Leos Patient : 1965 Acct: [id number] Date of Admission: 10/03/2023 Room/Bed: [facility] A PCP: RADHA KHAN History of Present Ilness: 58 y.o. is man with the chief Complaint of: transferred from [facility] evaluation of severe cerebrovascular disease presenting with left facial and hand weakness which occurred in the setting of 3 yrs history of "dizziness" acutely worsen in the last few days. [...] (Glucotrol) tablet 5 mg, 5 mg, Oral, [facility], 5 mg at 10/04/23 0555 glucagon [...] Levoxyl) tablet 112 mcg, 112 mcg, Oral, [facility], Michael Rico MD, 112mcg at 10/04/23 0555 metoprolol succinate XL (Toprol-XL) 24 hr tablet 100 mg, 100 mg, Oral, Daily, Michael Rico MD pantoprazole (ProtoNix) EC tablet 40 mg, 40 mg, Oral, [facility], Michael Rico MD, 40 mg at 10/04/23 [...] 0.4 mg, 0.4 mg, Oral, Daily, Michael Rioc MD Continuous Infusions: sodium chloride, 50 mL/hr [...] reflex present -X Palate:intact -XI Shoulder shrug: {INTACT/ABNORMAL:[id number]::"intact"Normal -XII Tongue movement: Normal Funduscopic Exam: normal, [...] 401 ms QTC Interval 453 ms P [place] 12 degrees QRS Kil[place] -16 degrees T Wave [place] [address] Interval 160 ms POCT glucose meter Collection [...] the left vertebral artery MRI brain from [facility] review ASSESSMENT / PLAN / SUGGESTIONS : [...] to be involved in this patient's care. [facility] Phone: 1(318) 418-516507-05-2024 Consult note* Karol Melissa MD - 10/04/2023 [...] in HPI LABS: No results found for: "CREATININE" No results found for: "WBC", "HGB", "HCT", "MCV", "PLT" No results found for: "INR", "PROTIME" No results found for: "VLDL" PHYSICAL EXAM: Vitals: 10/04/23 0620 BP: 116/73 [...] Signal [] LABS: No results found for: "WBC", "HGB", "HCT", "PLT", "PROTIME", "INR", "PTT", "K", "BUN", "CREATININE" VASCULAR TESTING: Completed at OSH . Associated [...] and he is agreeable to the plan. [facility] [id number] History and physical note* Michael Rico MD [...] level of the V3 extending beyond the dnunr-tf-ghgh with reconstitution. Atherosclerosis of the cavernous and [...] consultation 3. Continue to monitor glycemic status. [facility] Phone: 1(457) 868-393207-04-2024 History and physical note* Michael Rico MD [...] level of the V3 extending beyond the quoad-fk-kjas with reconstitution. Atherosclerosis of the cavernous and [...] to monitor glycemic status. documented in this [facility]07-04-2024 Nurse Note* Dalila Helms RN - 10/03/2023 7:30 PM EDT Pt arrived from [facility], ambulated to bed, NIH scale 1, pt A&O x 4, denies numbness ortingling, denies headache or dizziness, denies needs at this time, call light [facility], will monitor. [facility] HospitalOkefas53-18-4358 Note Discharge Instructions Thank you for allowing [facility] to assist you with your healthcare needs. [...] to receive it can visit one of [facility] vaccine clinics. There are many vaccine clinic locations within the [facility]. For locations and available times, please visit [email or web address].[email or web address] It is important to note that some COVID mobile vaccine clinics are held outdoors and may be canceled in rainy or stormy conditions. To learn more about pediatric vaccinations (ages 5-11), we invite you to visit the [facility] webpage. [email or web address]/[email or web address] learn more about the COVID-19 vaccine, we invite you to visit the CDC website for a list of frequently asked questions.https://www.cdc.gov/coronavirus/2019-ncov/vaccines/faq.html [facility] [employer] Patient Portal Access Instructions: Stay connected with your healthcare team and access your personal medical information anytime with the [employer] Patient Portal. Please follow the directions below to create your [employer] account: 1.Access the email account you provided upon registration to the hospital/physician office.2.Look for an invitation email from [facility].3.Open the email and access the invitation link: AcceptInvitation to [employer].4.Fill in the required goldberg to create your account. To access your account, visit [employer]. Click the blue button labeled "Access Patient Portal" and then log in with the username [...] who you will allowto register on the [employer] Patient Portal for access to your information. You can also access the [facility] Patient Portal on the [employer] collin. Simply click on "Patient Portal" and then log into your account. If you would like to receive a full copy of your medical records, please contact the [facility] Medical Records Department by calling [phone], Saturday through Saturday between 8 a.m. and [...] Call your local pharmacy or go to [email or web address] to find one close to you.3.Make use of household items: Use cat litter or old coffee grounds to dispose medications if other options arenot available. Mix your drugs with these household products, seal them in an airtight container andthrow it into the garbage. Call [facility]: [phone] to be sure your drugs can be [...] that I should contact my do ctor. 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07-04-2024 Note Date of Service 10/03/23 Chief Complaint CVA Subjective 58-year-old male with past medical history significant for paroxysmal atrial fibrillation anticoagulated with apixaban, HTN, HLD, type 2 diabetes mellitus, hypothyroidism, KIANNA noncompliant with CPAP,HFpEF, chronic hypoxic respiratory failure, GERD, carotid stenosis, NSTEMI, Hodgkin's disease. Patient presented to [facility] emergency department on 10/01/2023 with [...] vertebral artery from the origin to the [id number]. Moderate stenosis of bilateral internal carotid arteries [...] Dobbs, vascular surgeon, who recommended transfer to [facility] for vascular surgery evaluation. [facility] transfer line called. Imaging reports faxed. [...] by DOMINIC FLEMING on 10/03/2023 04:[address] [facility]07-03-2024 Note ORIGINAL EXAMINATION: CTA OF THE [...] Sign Date: 10/03/2023 10:41:49 AM Ordering Provider: [facility]07-03-2024 Note ORIGINAL EXAMINATION: CTA OF [...] Date: 10/03/2023 10:41:06 AM [facility]* Exam Date Time Procedure Performing Provider Status 10/02/23 2:41 PM Echocardiogram, Adul t with Bubble Study- Auth (Verified) [facility] 07-03-2024 Nurse Progress note ABDULLAHI AGUIRRE APRN, CNP CONSULTED STEM FOR NEURO CONSULT 1319. ER REGISTRATION NOTIFIED. Digitally Signed by Nelly Marsh RN on 10/02/2023 01:[address] [facility]07-03-2024 Evaluation + Plan noteExtracted from: Title:History [...] collaborating with physician, and documenting in chart. [facility] 07-03-2024 Nurse Progress note ABDULLAHI AGUIRRE APRN, CNP CONSULTED STEM FOR NEURO CONSULT 1319. ER REGISTRATION NOTIFIED. Digitally Signed by Nelly Marsh RN on 10/02/2023 01:[address] [facility]07-03-2024 Note Date of Service 10/02/2023 Chief Complaint states [facility], felt maybe a little weak, siad that [...] type 2 diabetes and hypothyroidism, presented to [facility] emergency department with the chief complaint [...] by ABDULLAHI AGUIRRE on 10/02/2023 12:[address] [facility]07-03-2024 Note ORIGINAL HISTORY: TIA COMPARISON: Head [...] Date: 10/02/2023 8:38:30 AM Ordering Provider: [facility] Note ADDENDUM ADDENDUM: I agree [...] Sign Date: 10/01/2023 11:46:49 PM Ordering Provider: [facility]07-02-2024 Note ORIGINAL EXAMINATION: ONE XRAY VIEW [...] Date: 10/01/2023 9:13:56 PM Ordering Provider: TITA [facility]07-02-2024 Note Sinus rhythm Atrial premature complexes Left ventricular hypertrophy Inferior infarct, old EKG interpretation is noted and agreed to in [employer]. The interpretation of this patient's EKG contributed directly to the care and management of this patient. Electronic Signature: TITA PARISH DO 10/01/2023 20:51:[address] [place] [address] 12-15-2023 Procedure [facility] 02-18-2023 Procedure [facility]05-05-[address] Ospina [facility] August 03, 2022 10:12am Note Date/Time August 03, 2022 10:12a m [facility] Medical Records Department [address] [place] [address] Discharge Summary 08/03/22 1011 MR#: [id number] Acct: [id number] Name: KRUNAL LEOS Rep #:[id number] : 1965 56 From: Eduin Ospina MD PCP: Dr. Radha Khan MD Status:ADM TALIB Location: [place] [address]- Providers Date of Admission: 08/01/22 Date of [...] PO DAILY@0800 03/30/20 blood-glucose meter,continuous (Dexcom G6 Document Photographer) #1 ea 07/26/20 pen needle, diabetic 31 gauge x 5/16" #1,200 ea 12/22/20 pen needle, diabetic 32 gauge x 5/32" (BD Ultra-Fine Kiki Pen Needle) #150 ea [...] Discharge Orders/Prescriptions Prescriptions: Continued (DME) Dexcom G6 Document Photographer Misc See Rx Instructions .ROUTE .MEDSUPPLY Qty: 1 0RF Rx Instructions: As directed (DME) pen needle, diabetic 31 gauge x 5/16" needle See Rx Instructions .ROUTE .MEDSUPPLY Qty: 1200 Label Comments: use 1 PEN NEEDLE to inject MEDICATION subcutaneously as directed Rx Instructions: As directed (DME) pen needle, diabetic [BD Ultra-Fine Kiki Pen Needle] 32 gauge x 5/32" needle See Rx Instructions .ROUTE .MEDSUPPLY Qty: [...] Self Care Charges/Coding Visit Charges Inpatient E&M: 50379 Disch Hosp >30min 08/03/22 1012 <Electronically signed by Eduin Ospina MD> Cosigner Signature (if applicable): CC: Dr. Radha Khan MD; Dr. Eduin Ospina MD~ Signed [facility] Work Phone: 1(224) 795-647905-05-[address] Ospina [facility] August 03, 2022 10:11am Note Date/Time August 03, 2022 7:37am [facility] Medical Records Department [address] [place] [address] Progress Note - Hospitalist 08/03/22 0737 MR#: [id number] Acct: [id number] Name: KRUNAL LEOS Rep #:[id number] : 1965 56 From: Eduin Ospina MD PCP: Dr. Radha Khan MD Status:ADM TALIB Location: [place] [address] Reason for Visit Reason for Visit: Diagnoses [...] 40 Minutes Charges/Coding Visit Charges Inpatient E&M: 35933 Subs Hosp L2 08/03/22 1011 <Electronically signed by Eduin Ospina MD> Cosigner Signature (if applicable): CC: ~ Signed [facility] Work Phone: 1(189) 466-892405-04-[address] Ospina [facility] August 02, 2022 10:50am Note Date/Time August 02, 2022 8:30am [facility] Medical Records Department [address] [facility] [place] [address] Progress Note - Hospitalist 08/02/22827 MR#: [id number] Acct: [id number] Name: KRUNAL LEOS Rep #:[id number] : 1965 56 From: Eduin Ospina MD PCP: Dr. Radha Khan MD Status:ADM TALIB Location: [place] [address] Reason for Visit Reason for Visit: Diagnoses [...] (Auto) 70.4 H, Lymph % (Auto) 13.4L, Ware % (Auto) 11.7 H, Eos % (Auto) [...] % (Auto) 59.7, Lymph % (Auto) 21.5, Ware % (Auto) 14.4 H, Eos % (Auto) [...] Aparicio MD at 21:16 EDT , ADDENDUM: 08/01/22 2133 IMPRESSION: Moderate to severe atherosclerotic plaquing of [...] 40 Minutes Charges/Coding Visit Charges Inpatient E&M: 40992 Subs Hosp L2 08/02/22 1050 <Electronically signed by Eduin Ospina MD> Cosigner Signature (if applicable): CC: ~ Signed [facility] Work Phone: 1(673) 756-164405-04-2023 History and physical note Author Dr. Bell [facility] August 02, 2022 2:34am Note Date/Time August 01, 2022 10:32p m [facility] Medical Records Department [address] [place] [address] H&P Exam - Hospitalist 08/01/222231 MR#: [id number] Acct: [id number] Name: KRUNAL LEOS Rep #:[id number] : 1965 56 From: Cookie Bell MD PCP: Dr. Radha Khan MD Status:ADM TALIB Location: [place] [address]- 1 HPI - General General Date of [...] IV x1, meclizine 25 mg p.o. x1. [facility] Medical History (Updated 08/02/22 @ 02:28 [...] Last Taken 05/09/22] blood-glucose meter,continuous (Dexcom G6 Document Photographer) #1 ea 07/26/20 [Rx Last Taken Unknown] pen needle, diabetic 31 gauge x 5/16" #1,200 ea 12/22/20 [History Last Taken Unknown] pen needle, diabetic 32 gauge x 5/32" (BD Ultra-Fine Kiki Pen Needle) #150 ea [...] (Auto) 70.4 H, Lymph % (Auto) 13.4L, [place] % (Auto) 11.7 H, Eos % (Auto) [...] prophylaxis: SCDs, Lovenox. #17. CODE status: Patient HCPOA is his and living will is currently [...] 75 minutes. Charges/Coding Visit Charges Inpatient E&M: 43872 Init Hosp L3 Procedures Hospitalists Procedures: 34331 Advncd Care Plan 30 Min 08/02/22 0234 <Electronically signed by Cookie Bell MD> Cosigner Signature (if applicable): CC: Dr. Radha Khan MD; Dr. Cookie Bell MD~ Signed [facility] Work Phone: 1(641) 132-671205-04-[address] Hill [facility] August 01, 2022 11:55pm Note Date/Time August 01, 2022 8:08pm [facility] Medical Records Department [address] [place] [address] Emergency Department Summary 08/01/22 MR#: [id number] Acct: [id number] Name: KRUNAL LEOS Rep #:[id number] : 1965 56 From: Nely Hill MD PCP: Dr. Radha Khan MD Status:ADM TALIB Location: [place] [address] HPI History of Present Illness Chief Complaint: [...] equivocal and norecommendation for surgery was made. [facility] Medical History Acute kidney injury [...] Last Taken 05/09/22] blood-glucose meter,continuous (Dexcom G6 Document Photographer) #1 ea 07/26/20 [Rx Last Taken Unknown] pen needle, diabetic 31 gauge x 5/16" #1,200 ea 12/22/20 [History Last Taken Unknown] pen needle, diabetic 32 gauge x 5/32" (BD Ultra-Fine Kiki Pen Needle) #150 ea [...] Medical decision making narrative: Patient placed on senior enlisted advisor. EKG obtained to evaluate for cardiac arrhythmia/ischemia. [...] 70.4 H Lymph % (Auto) 13.4 L [place] % (Auto) 11.7 H Eos % (Auto) [...] (Auto) Neut % (Auto) Lymph % (Auto) Ware % (Auto) Eos % (Auto) Baso % [...] our attention. I spoke with neurology at [facility]. Given that the patient is already [...] Vertigo Prescriptions: No Action (DME) Dexcom G6 Document Photographer Misc See Rx Instructions .ROUTE .MEDSUPPLY Qty: 1 0RF Rx Instructions: As directed (DME) pen needle, diabetic 31 gauge x 5/16" needle See Rx Instructions .ROUTE .MEDSUPPLY Qty: 1200 Label Comments: use 1 PEN NEEDLE to inject MEDICATION subcutaneously as directed Rx Instructions: As directed (DME) pen needle, diabetic [BD Ultra-Fine Kiki Pen Needle] 32 gauge x 5/32" needle See Rx Instructions .ROUTE .MEDSUPPLY Qty: [...] insulin pen 25 unit subcut TIDCM Vania Gaitan U-300 Insulin 300 unit/mL (1.5 mL) insulin [...] your Primary Care Provider. Call [facility] ([phone]) or report to the closest Emergency Room. Call 911 if necessary. 08/01/225 <Electronically signed by Nely Hill MD> Cosigner Signature (if applicable): CC: Dr. Radha Khan MD ~ Signed [facility] Work Phone: Consult note Author Ethel Moyer [facility] Note Date/Time September 28, 2024 5:15 pm [facility] Medical Records Department [address] [place] [address] Counseling Note - Pharmacy 09/28/24 1549 MR#: [id number] Acct: [id number] Name: KRUNAL LEOS Rep #:[id number] : 1965 59 From: Ethel Moyer PCP: Dr. Brandt Winter MD Status:ADM IN Location: [place] [address] Pharmacy [place] Med Reconciliation Pharmacy Service has performed discharge medication reconciliation for this patient. The patient's discharge medication list was reviewed for discrepancies and discrepancies were resolved. Medications at Discharge Home Medications tamsulosin 0.4 mg capsule 0.4 mg PO DAILY prostate 09/08/15 Held on 09/28/24. 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,cont (Dexcom G6 Document Photographer) #1 ea 07/26/20 atorvastatin 80 mg tablet [...] capsule 134 mg PO QHS 09/26/24 09/28/24 3226 <Electronically signed by Ethel Moyer> Date _ Ethel Toth Signature (if applicable): Date CC: ~ Signed [facility] Work Phone: Discharge summary Author Betina Martinez [facility] Note Date/Time November 26, 2024 12 :18pm [facility] Medical Records Department [address] [place] [address] Emergency Department Summary 11/26/24 MR#: [id number] Acct: [id number] Name: KRUNAL LEOS Rep #:[id number] : [...] droop is a deficit from prior stroke. 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 Reading Location: [facility] Cervical Spine CT 11/26/24 09:38 IMPRESSION: DEGENERATIVE CHANGES OF THE CERVICAL SPINE. NO EVIDENCE OF SIGNIFICANT OSSEOUS CENTRAL CANAL OR NEURAL FORAMINAL STENOSIS. Reading Location: [id number] Chest X-Ray 11/26/24 09:38 IMPRESSION: Examination limited [...] acute osseous process is identified. Reading Location: [facility] Pelvis X-Ray 11/26/24 09:38 IMPRESSION: Degenerative [...] out a currently occult fracture. Reading Location: [place] [address] Discharge Plan Triage Chief Complaint: Weakness ED Provider: Betina Martinez Dx/Rx/DC Orders Prescriptions: No Action (DME) Dexcom G6 Document Photographer Misc See Rx Instructions .ROUTE .MEDSUPPLY Qty: [...] MD [Primary Care Provider] - Print Language: Argentine What to do if you have Problems For any increased pain, shortness of breath, bleeding, nausea or vomiting, chestpain, or any unexpected problems, contact your Primary Care Provider. Call [facility] ([phone]) or report to the closest Emergency Room. Call 911 if necessary. 11/26/24 1218 <Electronically signed by Betina Martinez MD> Cosigner Signature (if applicable): CC: Dr. Brandt Winter MD ~ Signed [facility] Work Phone: Evaluation note* Diagnosis Onset [...] heart failure) chronic KIANNA (obstructive sleep apnea) [facility] Work Phone: Evaluation note* Diagnosis [...] (obstructive sleep apnea) chronic Diabetes chronic Obesity [facility] Work Phone: Evaluation note* Diagnosis [...] Paroxysmal atrial fibrillation acute Essential (primary) hypertension [facility] Work Phone: Evaluation note* Diagnosis Onset Date Resolution Status Left carotid bruit acute Paroxysmal atrial fibrillation acute Essential (primary) hypertension chronic Diabetes chronic Essential (primary) hypertension chronic Obesity chronic Dyspnea on exertion acute Chronic diastolic CHF (congestive heart failure) chronic KIANNA (obstructive sleep apnea) chronic Dyspnea on exertion acute Left carotid bruit acute Paroxysmal atrial fibrillation acute Essential (primary) hypertension [facility] Work Phone: Evaluation note* Diagnosis Onset Date Resolution Status Diabetes chronic Essential (primary) hypertension chronic Obesity chronic Dyspnea on exertion acute Chronic diastolic CHF (congestive heart failure) chronic KIANNA (obstructive sleep apnea) chronic Dyspnea on exertion acute Left carotid bruit acute Paroxysmal atrial fibrillation acute Essential (primary) hypertension chronic Diabetes chronic Essential (primary) hypertension chronic Obesity [facility] Work Phone: Evaluation note* Diagnosis [...] atrial fibrillation acute Essential (primary) hypertension chronic [facility] Work Phone: Evaluation note* Diagnosis Onset [...] apnea) chronic Diabetes chronic Hypothyroidism chronic Obesity [facility] Work Phone: Evaluation note* Diagnosis [...] apnea) chronic Diabetes chronic Hypothyroidism chronic Obesity [facility] Work Phone: Evaluation note* Diagnosis [...] chronic Hypothyroidism chronic Obesity chronic Vertigo acute [facility] Work Phone: Evaluation note* Diagnosis Onset Date Resolution Status Chronic diastolic CHF (congestive heart failure) chronic Chronic respiratory failure with hypoxia chronic Dyspnea on exertion chronic Obesity chronic KIANNA (obstructive sleep apnea) chronic Diabetes chronic Hypothyroidism chronic Obesity chronic Vertigo acute Diabetes chronic Essential (primary) hypertension chronic Insulin pump titration chron ic Obesity chronic Presence of insulin pump chr onic [facility] Work Phone: Evaluation note* Diagnosis Onset Date Resolution Status Vertigo acute Diabetes chronic Essential (primary) hypertension chronic Insulin pump titration chron ic Obesity chronic Presence of insulin pump chr onic Carotid stenosis acute Double vision acute Left carotid bruit acute Vertigo acute [facility] Work Phone: Evaluation note* Diagnosis Onset Date Resolution Status Carotid stenosis acute Double vision acute Left carotid bruit acute Vertigo acute Post op infection acute Thyroid nodule acute CKD (chronic kidney disease) chronic Diabetes chronic Hypothyroidism chronic Microalbuminuria chronic Obesity chronic Multiple thyroid nodules acu te [facility] Work Phone: Evaluation note* Diagnosis Onset Date Resolution Status Post op infection acute Thyroid nodule acute CKD (chronic kidney disease) chronic Diabetes chronic Hypothyroidism chronic Microalbuminuria chronic Obesity chronic Multiple thyroid nodules acu te CKD (chronic kidney disease) chronic Diabetes chronic Hypothyroidism chronic Microalbuminuria chronic Neuropathy chronic Obesity [facility] Work Phone: Evaluation note* Diagnosis [...] Dyspnea on exertion chronic Essential (primary) hypertension [facility] Work Phone: Evaluation note* Diagnosis [...] hypertension chronic Multiple thyroid nodules acu te [facility] Work Phone: Evaluation note* Diagnosis Onset [...] nodules acu te Polyneuropathy acute Hyperlipidemia chronic [facility] Work Phone: Evaluation note* Diagnosis Onset [...] cerebrovascular accident (CVA) acute Peripheral vestibulopathy ac [place] Polyneuropathy acute Hyperlipidemia chronic Double vision resolved [facility] Work Phone: Evaluation note* Diagnosis Onset Date Resolution Status CKD (chronic kidney disease) chronic Diabetes chronic Hypothyroidism chronic Microalbuminuria chronic Neuropathy chronic Obesity chronic Left carotid bruit acute Paroxysmal atrial fibrillation acute Dyspnea on exertion chronic Essential (primary) hypertension chronic Multiple thyroid nodules acu te History of TIA (transient ischemic attack) acute Ischemic cerebrovascular accident (CVA) acute Peripheral vestibulopathy ac [place] Polyneuropathy acute Hyperlipidemia chronic Double vision resolved [facility] Work Phone: Evaluation note* Diagnosis Onset Date Resolution Status Left carotid bruit acute Paroxysmal atrial fibrillation acute Dyspnea on exertion chronic Essential (primary) hypertension chronic Multiple thyroid nodules acu te History of TIA (transient ischemic attack) acute Ischemic cerebrovascular accident (CVA) acute Peripheral vestibulopathy ac [place] Polyneuropathy acute Hyperlipidemia chronic Double vision resolved CKD (chronic kidney disease) chronic Diabetes chronic Essential (primary) hypertension chronic Hypothyroidism chronic Neuropathy chronic Obesity chronic Carotid stenosis acute History of TIA (transient ischemic attack) acute Ischemic cerebrovascular accident (CVA) acute Polyneuropathy acute [facility] Work Phone: Evaluation note* Diagnosis Onset Date Resolution Status CKD (chronic kidney disease) chronic Diabetes chronic Essential (primary) hypertension chronic Hypothyroidism chronic Neuropathy chronic Obesity chronic History of TIA (transient ischemic attack) acute Ischemic cerebrovascular accident (CVA) acute Polyneuropathy acute Carotid stenosis chronic Carotid stenosis chronic Carotid stenosis chronic [facility] Work Phone: Evaluation note* Diagnosis Cerebrovascular accident (CVA), unspecified mechanism (HCC)- Primary Cerebrovascular accident (CVA), unspecified mechanism (HCC) [facility] Bilateral carotid artery stenosis- Primary Occlusion and stenosis of carotid artery without mention of cerebral infarction Ischemic cerebrovascular accident (CVA) (HCC) [facility] Diagnosis Chronic kidney disease, unspecified CKD stage- Primary [facility] Diagnosis Ischemic cerebrovascular accident (CVA) (HCC)- Primary Bilateral carotid artery stenosis Occlusion and stenosis of carotid artery without mention of cerebral infarction [facility] Diagnosis Bilateral carotid artery occlusion Occlusion and stenosis of carotid artery without mention of cerebral infarction [facility] Diagnosis Cerebrovascular accident (CVA), unspecified mechanism (HCC)- Primary Bilateral carotid artery stenosis Occlusion and stenosis of carotid artery without mention of cerebral infarction [facility] Diagnosis Ischemic cerebrovascular accident (CVA) (HCC) Bilateral carotid artery stenosis Occlusion and stenosis of carotid artery without mention of cerebral infarction documented [facility] encounter [facility]* Diagnosis Bilateral carotid artery stenosis- Primary Occlusion and stenosis of carotid artery without mention of cerebral infarction documented in this encounter [facility]* Diagnosis ILD (interstitial lung disease) (Multi)- Primary Postinflammatory pulmonary fibrosis Pulmonary hypertension (Multi) Other chronic pulmonary heart diseases Chronic respiratory failure with hypoxia documented in this encounter [facility] Work Phone: Evaluation note* Diagnosis ILD (interstitial lung disease) (Multi) Postinflammatory pulmonary fibrosis documented in this encounter [facility] Work Phone: Evaluation note* Diagnosis Pulmonary hypertension (Multi) Other chronic pulmonary heart diseases documented in this encounter [facility] Work Phone: Evaluation note* Diagnosis ILD (interstitial lung disease) (Multi) Postinflammatory pulmonary fibrosis documented in this encounter [facility] Work Phone: Evaluation note* Diagnosis ILD (interstitial lung disease) (Multi)- Primary Postinflammatory pulmonary fibrosis Chronic respiratory failure with hypoxia KIANNA (obstructive sleep apnea) Obstructive sleep apnea (adult) (pediatric) BMI 40.0-44.9, adult (Multi) Diastolic heart failure, unspecified HF chronicity documented in this encounter [facility] Work Phone: Evaluation note* Diagnosis ILD (interstitial lung disease) (Multi) Postinflammatory pulmonary fibrosis documented in this encounter [facility] Work Phone: Evaluation note* Diagnosis ILD (interstitial lung disease) (Multi)- Primary Postinflammatory pulmonary fibrosis Chronic respiratory failure with hypoxia KIANNA (obstructive sleep apnea) Obstructive sleep apnea (adult) (pediatric) BMI 40.0-44.9, adult (Multi) Diastolic heart failure, unspecified HF chronicity documented in this encounter [facility] Work Phone: Evaluation note* Diagnosis ILD (interstitial lung disease) (Multi) Postinflammatory pulmonary fibrosis documented in this encounter [facility] Work Phone: Evaluation note* Diagnosis Bilateral carotid artery stenosis Occlusion and stenosis of carotid artery without mention of cerebral infarction documented [facility]* Diagnosis Bilateral carotid artery stenosis Occlusion and stenosis of carotid artery without mention of cerebral infarction documented [facility]* Diagnosis ILD (interstitial lung disease) (Multi)- Primary Postinflammatory pulmonary fibrosis Chronic respiratory failure with hypoxia BMI 40.0-44.9, adult (Multi) Diastolic heart failure, unspecified HF chronicity documented in this encounter [facility] Work Phone: Evaluation note* Diagnosis ILD (interstitial lung disease) (Multi) Postinflammatory pulmonary fibrosis documented in this encounter [facility] Work Phone: Evaluation note* Diagnosis ILD (interstitial lung disease) (Multi)- Primary Postinflammatory pulmonary fibrosis High risk medication use Chronic respiratory failure with hypoxia BMI 40.0-44.9, adult (Multi) Diastolic heart failure, unspecified HF chronicity (Multi) KIANNA (obstructive sleep apnea) Obstructive sleep apnea (adult) (pediatric) documented in this encounter [facility] Work Phone: Evaluation note* Diagnosis ILD (interstitial lung disease) (Multi) Postinflammatory pulmonary fibrosis documented in this encounter [facility] Work Phone: Evaluation note* Diagnosis ILD (interstitial lung disease) (Multi) Postinflammatory pulmonary fibrosis Chronic respiratory failure with hypoxia documented in this encounter [facility] Work Phone: Evaluation note* Diagnosis Bilateral carotid artery stenosis- Primary Occlusion and stenosis of carotid artery without mention of cerebral infarction Transient alteration of awareness [facility] Author Ochoa Johnson [facility] Note Date/Time November 26, 2024 12 :33pm [facility] Medical Records Department [address] [place] [address] H&P Exam - Hospitalist 11/26/24 1209 MR#: [id number] Acct: [id number] Name: KRUNAL LEOS Rep #:[id number] : [...] past few days, he has noticed a "boil" on his right leg. Today feels much worse given the location, which is in his groin, he is not able to see it. He presented to the emergency room and was diagnosed with sepsis, received a liter of IV fluids as well as vancomycin and Zosyn. 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 07/26/20 Unknown Rx (Dexcom G6 Document Photographer) blood-glucose transmitter (Dexcom #1 ea 12/29/21 Unkno [...] 2.5 mg/3 mL 2.[address] N 11/25/24 Unknown History (0.083 %) solution [...] node excision History of left heart catheterization (2010) Hx of nephrolithotomy with removal of calculi History of thoracentesis (2016) Social History household members: spouse and none [...] (Auto) 76.5 H, Lymph% (Auto) 8.9 L, Ware % (Auto) 12.8 H, Eos % (Auto) [...] Clarity Clear, Urine pH 6.0, Ur Specific [place] 1.015, Urine Protein 15 H, Urine Glucose [...] no visible acute traumatic injury. [facility] 11/26/24 09:38 IMPRESSION: DEGENERATIVE CHANGES OF THE CERVICAL SPINE. NO EVIDENCE OF SIGNIFICANT OSSEOUS CENTRAL CANAL OR NEURAL FORAMINAL STENOSIS. Reading Location: [id number] Chest X-Ray 11/26/24 09:38 IMPRESSION: Examination limited [...] acute osseous process is identified. Reading Location: [facility] Pelvis X-Ray 11/26/24 09:38 IMPRESSION: Degenerative [...] out a currently occult fracture. [facility] Assessment & Plan Assessment/Plan (1) Sepsis: PLAN: [...] this time. Patient to follow-up with his edger liner as outpatient. Patient takes pirfenidone for his [...] does so. Charges/Coding Visit Charges Inpatient E&M: 44575 Init Hosp L3 11/26/24 7620 <Electronically signed by Ochoa Johnson DO> Cosigner Signature (if applicable): CC: Dr. Brandt Winter MD; Dr. Ochoa Johnson DO; Rosalino Padron~ Signed [facility] Work Phone: History of Present illness Narrative* Rosalino Padron MD - 08/28/2024 1:00 PM EDT Images from the original note were not included. Department of Medicine Division of Pulmonary, Critical Care, and Sleep Medicine Consultation [address] [facility] Patient was referred by his PCP (Dr. [...] surgery total pulmonary decortication in 2015 at [facility]. He was hospitalized in [place] from 03/02-03/04/2024 for acute hypoxic respiratory failure. [...] Review Audit Reviewed by Heavenly Sparks MA (Sr. Logistics Analyst) on 08/28/24 at 1158 Medication Order Taking? Sig Documenting Provider Last Dose Status albuterol 90 mcg/actuation inhaler [id number] INHALE 2 PUFFS BY MOUTH EVERY 4 HOURS NEEDED FOR SHORTNESS OF BREATH OR WHEEZING Historical Provider, Active amLODIPine (Norvasc) 5 mg tablet [id number] Take 1 tablet (5 mg) by mouth once daily. Historical Provider, Active aspirin 325 mg tablet [id number] Take 1 tablet (325 mg) by mouth once daily. Historical ProviderLORNActive atorvastatin (Lipitor) 80 mg tablet [id number] Take 1 tablet (80 mg) by mouth once daily at bedtime.Gloria Rahman MD Active betamethasone, augmented, (Diprolene) 0.05 % lotion [id number] APPLY TO RASH ON THE TRUNK OR SCALP 1-2 TIMES DAILY NEEDED Historical MD Lacey Active bismuth subsalicylate (Pepto Bismol) 262 mg chewable tablet [id number] CHEW AND SWALLOW 2 TABLETS BYMOUTH 3 TIMES A DAY for 2 weeks. max 16 tablets per 24 hours Patient not taking: Reported on 08/07/2024 Historical MD Lacey Active Brilinta 90 mg tablet [id number] 1 tablet (90 mg). Historical ProviderMD Active busPIRone (Buspar) 10 mg tablet [id number] Take 1 tablet (10 mg) by mouth 3 times a day. Historical MD Lacey Active clopidogrel (Plavix) 75 mg tablet [id number] Take 1 tablet (75 mg) by mouth early in the morning.. Historical ProviderMD Active dapagliflozin propanediol (Farxiga) 5 mg [id number] Take 1 tablet (5 mg) by mouth once daily. Historical MD Lacey Active Dexcom G6 Sensor device [id number] USE DIRECTED FOR CONTINUOUS BLOOD GLUCOSE MONITORING, CHANGE SENSOR EVERY 10 DAYS Historical ProviderMD Active DULoxetine (Cymbalta) [address] capsule [id number] Take 1 capsule (60 mg) by mouth once daily. Historical MD Lacey Active Eliquis 5 mg tablet [id number] Take 1 tablet (5 mg) by mouth 2 times a day. Historical ProviderMD Active ergocalciferol (Vitamin D-2) 1250 mcg (50,000 units) capsule [id number] Take 1 capsule (1,250 mcg) by mouth. Gloria Rahman MD Active fenofibrate (Tricor) 54 mg tablet [id number] Take 1 tablet (54 mg) by mouth once daily. Historical ProviderMD Active furosemide (Lasix) 40 mg tablet [id number] Take 1 tablet (40 mg) by mouth. Gloria Rahman MD Active glimepiride (Amaryl) 4 mg tablet [id number] Take 1 tablet (4 mg) by mouth early in the morning.. Patient not taking: Reported on 08/07/2024 Gloria Rahman MD Active glipiZIDE (Glucotrol) 5 mg tablet [id number] Take 1 tablet (5 mg) by mouth. Patient not taking: Reported on 08/07/2024 Gloria Rahman MD Active HumuLIN R U-500, Conc, Insulin 500 unit/mL CONCENTRATED injection [id number] INJECT 75 UNITS DAILY VIA CONTINUOUS SUBCUTANEOUS INFUSION. DISCARD VIAL AFTER 40 DAYS Patient not taking: Reported on 08/07/2024 Gloria Rahman MD Active Jardiance 25 mg [id number] Take 1 tablet (25 mg) by mouth once daily. Gloria Rhaman MD Active levothyroxine (Synthroid, Levoxyl) 112 mcg tablet [id number] Take 1 tablet (112 mcg) by mouth once daily. Gloria Rahman MD Active lisinopril 40 mg tablet [id number] Take 1 tablet (40 mg) by mouth once daily. Gloria Rahman MD Active metFORMIN (Glucophage) 500 mg tablet [id number] Take 1 tablet (500 mg) by mouth 2 times daily (morning and late afternoon). Gloria Rahman MD Active metoprolol succinate XL (Toprol-XL) 100 mg 24 hr tablet [id number] TAKE 1 TABLET BY MOUTH DAILY for heart Historical MD Lacey Active Mucinex DM 60-1,200 mg tablet extended release 12 hr [id number] Take 1 tablet by mouth every 12 hours. Gloria Rahman MD Active oxyCODONE-acetaminophen (Percocet) 5-325 mg tablet [id number] Take 1 tablet by mouth 2 times a day as needed. Patient not taking: Reported on 08/07/2024 Gloria Rahman MD Active pantoprazole (ProtoNix) 40 mg EC tablet [id number] Take 1 tablet (40 mg) by mouth. Gloria Rahman MD Active potassium citrate CR (Urocit-K-10) 10 mEq ER tablet [id number] Take 1 tablet (10 mEq) by mouth twicea day. Gloria Rahman MD Active predniSONE (Deltasone) 20 mg tablet [id number] Take 0.5 tablets (10 mg) by mouth early in the morning.. Gloria Rahman MD Active predniSONE (Deltasone) 20 mg tablet [id number] Take 2 tablets (40 mg) by mouth once daily. Patient not taking: Reported on 08/07/2024 Rosalino Padron MD Active predniSONE (Deltasone) 5 mg tablet [id number] Take 4 tablets (20 mg) by mouth once daily for 30 days, THEN 3 tablets (15 mg) once daily for 30 days, THEN 2 tablets (10 mg) once daily for 30 days, THEN1 tablet (5 mg) once daily for 14 days. Rosalino Padron MD Active spironolactone (Aldactone) 50 mg tablet [id number] Take 1 tablet (50 mg) by mouth once daily. Patient not taking: Reported on 08/07/2024 Historical Provider, Active tamsulosin (Flomax) 0.4 mg 24 hr capsule [id number] Take 1 capsule (0.4 mg) by mouth once daily. Historical Provider, Active traMADol (Ultram) 50 mg tablet [id number] Take 1 tablet (50 mg) by mouth. [...] Rosalino Padron MD 08/28/2024 [facility] course Narrative No data available for this section [facility] Hospital Discharge instructions No data available for this section [facility] Discharge instructions* Attachments The following attachments cannot be sent through Care Everywhere. * Arteriogram Discharge Instructions ([place]) [facility] Additional Instructions 1. Hold Flomax as discussed due to urinary incontinence 2. Okay to utilize Imodium as needed for your bowel incontinence 3. If your blood sugars remain elevated despite weaning your steroids please contact your primary station master 4. Would have extensive conversation in the future before holding aspirin, Brilinta, and Eliquis 5. Please follow-up with your neurologist as previously recommended [facility]: [facility]: Hospital Discharge instructionsAdditional Instructions You had cellulitis of your right leg. Due to illness with stress in your body that cause your pressure to drop complicated by the fact that you take steroids chronically with prednisone. You been on higher dose prednisone decrease that to your baseline of 15 mg daily. [facility] Work Phone: Hospital Discharge instructionsAdditional Instructions Your history and exam is consistent with a transient ischemic attack but your CT reveals no sign of brain bleed or mass. Continue your Eliquis Brilinta and aspirin secondary to this history. Your workup today showed changes concerning for a urinary tract infection. Therefore please take the antibiotic as directed. If you have worsening of symptoms or any further concerns return to the ER for repeat evaluation.[facility] Work Phone: Instructions* Attachments The following attachments cannot be sent through Care Everywhere. * Risk Factors for Stroke ([place]) * Stroke ([place]) * Carotid Artery Disease ([place]) documented [facility] Patient Instructions* Rosalino Padron MD - 08/28/2024 [...] a breathing or a walking test Call [phone] to schedule EKG's, Echocardiograms and Cardiopulmonary Stress Tests. Call [phone] to schedule Radiology tests such as Nuclear Medicine Stress Tests, CT Scans, and MRI's. Should you have any questions Please Call our pulmonary nurse Linda Marie at [phone] or my assistant chief nursing officer Puneet Leone at [phone] [facility]: Reason for referral (narrative)No reason for referral information [facility]WC[facility] Work Phone: Reason for visit Narrative* Imaging (Routine) - Closed Specialty Diagnoses / Procedures Referred By Luke rubi Referred To Contact Radiology Diagnoses Bilateral carotid artery stenosis Ischemic cerebrovascular accident (CVA) (HCC) Procedures CTA head neck angio w and wo IV contrast Oziel Culp MD [address] [place] [address] Phone: tel: fax: Referral ID Status Reason Start Date Expiration Date Visits Re quested Visits Authorized [id number] Closed 01/06/2024 01/05/2025 1 [facility] N[facility]* Imaging (Routine) - Closed Specialty Diagnoses / Procedures Referred By Luke rubi Referred To Contact Cardiology Diagnoses Bilateral carotid artery occlusion Procedures Vascular US carotid artery duplex bilateral Suzy Jauregui MD [address] [place] [address] Phone: tel: fax: Referral ID Status Reason Start Date Expiration Date Visits Re quested Visits Authorized [id number] Closed 10/15/2023 10/14/2024 1 1 [facility] for visit Narrative* Imaging (Routine) - Closed Specialty Diagnoses / Procedures Referred By Contac t Referred To Contact Radiology Diagnoses Ischemic cerebrovascular accident (CVA) (HCC) Bilateral carotid artery stenosis Procedures IR angiogram cerebral with possible intervention Mey Loya, SOCIOLOGY FACULTY MEMBER - CARRIAGE SETTER [address] [address] Phone: tel: fax: Referral ID Status Reason Start Date Expiration Date Visits Re quested Visits Authorized [id number] Closed 02/13/2024 02/12/2025 1 1 [facility] [employer] for visit Narrative* Imaging (Routine) - Authorized Specialty Diagnoses / Procedures Referred By Contac t Referred To Contact Radiology Diagnoses ILD (interstitial lung disease) (Multi) Procedures [place] [address] [place] [address] Phone: tel: fax: Referral ID Status Reason Start Date Expiration Date Visits Requested Visits Authorized [id number] Authorized Perform Procedure 06/26/2024 06/26/2025 1 1 [facility] Work Phone: reason for visit Narrative* CV Imaging (Routine) - Authorized Specialty Diagnoses / Procedures Referred By Rohanac t Referred To Contact Cardiology Diagnoses Pulmonary hypertension (Multi) Procedures Transthoracic Echo (TTE) Complete CT ECHO TTHRC R-T 2D W/WOM-MODE COMPL SPEC&[place] [address] [id number] Phone: tel: fax: Referral ID Status Reason Start Date Expiration Date Visits Requested Visits Authorized [id number] Authorized Perform Procedure 06/26/2024 06/26/2025 1 1 [facility] Work Phone: reason for visit Narrative* PFT (Routine) - Pending Review Specialty Diagnoses / Procedures Referred By Rohanac t Referred To Contact Diagnoses ILD (interstitial lung disease) (Multi) Procedures Pulmonary Stress Test (6 Min. Walk) Rosalino Padron MD [address] [place] [address] Phone: tel: fax: Referral ID Status Reason Start Date Expiration Date V isits Requested Visits Authorized [id number] Pending Review 06/26/2024 06/26/2025 1 1 [facility] Work Phone: reason for visit Narrative* PFT (Routine) - Pending Review Specialty Diagnoses / Procedures Referred By Contac t Referred To Contact Diagnoses ILD (interstitial lung disease) (Multi) Procedures Complete Pulmonary Function Test (Spirometry/DLCO/Lung Volumes) Rosalino Padron MD [address] [place] [address] Phone: tel: fax: Referral ID Status Reason Start Date Expiration Date V isits Requested Visits Authorized [id number] Pending Review 06/26/2024 06/26/2025 1 1 [facility] Work Phone: reason for visit Narrative* PFT (Routine) - Pending Review Specialty Diagnoses / Procedures Referred By Contac t Referred To Contact Diagnoses ILD (interstitial lung disease) (Multi) Procedures Spirometry Pre/Post Bronchodilator Rosalino Padron MD [address] [place] [address] Phone: tel: fax: Referral ID Status Reason Start Date Expiration Date V isits Requested Visits Authorized [id number] Pending Review 08/07/2024 08/07/2025 1 1 [facility] Work Phone: reason for visit Narrative* PFT (Routine) - Pending Review Specialty Diagnoses / Procedures Referred By Contac t Referred To Contact Diagnoses ILD (interstitial lung disease) (Multi) Procedures Pulmonary Stress Test (6 Min. Walk) Rosalino Padron MD [address] [place] [address] Phone: tel: fax: Referral ID Status Reason Start Date Expiration Date V isits Requested Visits Authorized [id number] Pending Review 08/07/2024 08/07/2025 1 1 [facility] Work Phone: reason for visit Narrative* PFT (Routine) - Pending Review Specialty Diagnoses / Procedures Referred By Contac t Referred To Contact Diagnoses ILD (interstitial lung disease) (Multi) Procedures DLCO / [place] [address] [place] [address] Phone: tel: fax: Referral ID Status Reason Start Date Expiration Date V isits Requested Visits Authorized [id number] Pending Review 08/07/2024 08/07/2025 1 1 [facility] Work Phone: reason for visit Narrative* Endoscopy (Routine) - Authorized Specialty Diagnoses / Procedures Referred By Contac t Referred To Contact Gastroenterology Diagnoses ILD (interstitial lung disease) (Multi) Procedures Bronchoscopy Tier 2; w BAL, w Transbronch Bx Dick Nguyen [place] [id number] [place] [address] Phone: tel: fax: Referral ID Status Reason Start Date Expiration Date V isits Requested Visits Authorized [id number] Authorized 08/11/2024 08/11/2025 1 1 [facility] Work Phone: reason for visit Narrative* PFT (Routine) - Pending Review Specialty Diagnoses / Procedures Referred By Contac t Referred To Contact Diagnoses ILD (interstitial lung disease) (Multi) Procedures DLCO / Diffusion Capacity Rosalino Padron [place] [id number] [place] [address] Phone: tel: fax: Referral ID Status Reason Start Date Expiration Date V isits Requested Visits Authorized [id number] Pending Review 11/13/2024 11/13/2025 1 1 [facility] Work Phone: reason for visit Narrative* PFT (Routine) - Pending Review Specialty Diagnoses / Procedures Referred By Contac t Referred To Contact Diagnoses ILD (interstitial lung disease) (Multi) Chronic respiratory failure with hypoxia Procedures Pulmonary Stress Test (6 Min. Walk) [place] [address] [place] [address] Phone: tel: fax: Referral ID Status Reason Start Date Expiration Date V isits Requested Visits Authorized [id number] Pending Review 08/28/2024 08/28/2025 1 1 [facility] Work Phone: Reason for visit Narrative* PFT (Routine) - Pending Review Specialty Diagnoses / Procedures Referred By Contac t Referred To Contact Diagnoses ILD (interstitial lung disease) (Multi) Procedures Spirometry Pre/[place] [address] [place] [address] Phone: tel: fax: Referral ID Status Reason Start Date Expiration Date V isits Requested Visits Authorized [id number] Pending Review 11/13/2024 11/13/2025 1 1 [facility] Work Phone: Summary Purpose Family History No [...] FoundDocuments on File Type Date Recorded 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 Advance Directive(s) 08/19/2015 12:10 PM Advance Directive(s) 09/10/2015 4:56 PM Advance Directive Response Recorded Date/ Time Name of Medical Power of Board Machine Set Up Operator Tia Leos/segundo awais June 19, 2021 11:06am Advance Directives Yes September 08 3:58am Living Will No July 16, 2021 2:23pm Power of Board Machine Set Up Operator No July 16 2:23pm Advance Directive Response Recorded Date/ Time Name of Medical Power of Board Machine Set Up Operator Tia Leos/segundo awais June 19, 2021 11:06am Advance Directives Yes September 08 3:58am Living Will Yes September 04, 2021 6 :29am Power of Board Machine Set Up Operator Yes September 04, 2021 6:29am Advance Directive Response Recorded Date/ Time Name of Medical Power of Board Machine Set Up Operator Tia Glasrashid/w awais June 19, 2021 11:06am Name of Medical Power of Board Machine Set Up Operator tia leos September 04, 2021 6:29am Advance Directives Yes September 08 3:58am Living Will Yes September 04, 2021 6 :29am Power of Board Machine Set Up Operator Yes September 04, 2021 6:29am Advance Directive Response Recorded Date/ Time Advance Directives Yes September 08 2:58am Living Will Yes September 04, 2021 5 :29am Power of Board Machine Set Up Operator Yes September 04, 2021 5:29am Advance Directive Response Recorded Date/ Time Advance Directives on File Yes 2022 8:42am Name of Medical Power of Board Machine Set Up Operator Tia () May 09, 2022 8:42am Advance Directives Yes May 09, 2022 8:42am Living Will Yes May 09 8:42am Power of Board Machine Set Up Operator Yes May 09, 2022 8:42am Advance Directive Response Recorded Date/ Time Advance Directives on File Yes 2022 9:42am Name of Medical Power of Board Machine Set Up Operator Tia () May 09, 2022 9:42am Advance Directives Yes May 09, 2022 9:42am Living Will Yes May 09 9:42am Power of Board Machine Set Up Operator Yes May 09, 2022 9:42am Advance Directive Response Recorded Date/ Time Advance Directives on File Yes 2022 9:42am Name of Medical Power of Board Machine Set Up Operator Tia () May 09, 2022 9:42am Name of Medical Power of Board Machine Set Up Operator tia [email or web address] [phone] August 02, 2022 12:47am Advance Directives Yes May 09, 2022 9:42am Living Will Yes August 02, 2022 12 :47am Power of Board Machine Set Up Operator Yes August 02, 2022 12:47am Advance Directive Response Recorded Date/ Time Name of Medical Power of Board Machine Set Up Operator tia [email or web address]-[email or web address] [phone] August 02, 2022 12:47am Advance Directives Yes May 09, 2022 9:42am Living Will Yes August 02, 2022 12 :47am Power of Board Machine Set Up Operator Yes August 02, 2022 12:47am Advance Directive Response Recorded Date/ Time Advance Directives Yes May 09, 2022 9:42am Living Will Yes August 02, 2022 12 :47am Power of Board Machine Set Up Operator Yes August 02, 2022 12:47am Advance Directive Response Recorded Date/ Time Name of Medical Power of Board Machine Set Up Operator TIA February 14, 2023 9:43am Advance Directives Yes May 09, 2022 8:42am Living Will Yes February 14, 023 9:43am Power of Board Machine Set Up Operator Yes February 14, 2023 9:43am Advance Directive Response Recorded Date/ Time Name of Medical Power of Board Machine Set Up Operator TIA February 14, 2023 10:43am Advance Directives Yes May 09, 2022 9:42am Living Will Yes February 14, 023 10:43am Power of Board Machine Set Up Operator Yes February 14, 2023 10:43am Advance Directive Response Recorded Date/ Time Advance Directives Yes May 09, 2022 9:42am Living Will Yes February 14, 023 10:43am Power of Board Machine Set Up Operator Yes February 14, 2023 10:43am Documents on File Type Date Recorded 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 DNR (Do Not Resuscitate) 10/03/2023 8:09 PM Date Activated Date Inactivated Comments 10/03/2023 9:41 PM 10/05/2023 5:06 PM Documents on File Type Date Recorded 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 DNR (Do Not Resuscitate) 10/03/2023 8:09 PM Date Activated Date Inactivated Comments 10/03/2023 9:41 PM 10/05/2023 5:06 PM Advance Directive Response Recorded Date/ Time Living Will Yes February 14 10:43am Do you have a Healthcare Power of Board Machine Set Up Operator? Yes February 14, 2023 10:43am Living Will Yes November 15 11:41am Do you have a Healthcare Power of Board Machine Set Up Operator? Yes November 16, 2023 11:41am Living Will Yes January 20 4:34am Do you have a Healthcare Power of Board Machine Set Up Operator? Yes January 21, 2024 4:34am Advance Directives Yes April 30, 2024 10:06am Living Will Yes April 12 3:26pm Do you have a Healthcare Power of Board Machine Set Up Operator? Yes April 12, 2024 3:26pm Name of Medical Power of Board Machine Set Up Operator - TIA April 12, 2024 3:26pm Living Will Yes April 24 10:37pm Do you have a Healthcare Power of Board Machine Set Up Operator? Yes April 24, 2024 10:37pm Name of Medical Power of Board Machine Set Up Operator tia April 24, 2024 10:37pm Advance Directive Response Recorded Date/ Time Living Will Yes February 14 023 10:43am Do you have a Healthcare Power of Board Machine Set Up Operator? Yes February 14, 2023 10:43am Living Will Yes November 15 11:41am Do you have a Healthcare Power of Board Machine Set Up Operator? Yes November 16, 2023 11:41am Living Will Yes January 20 4:34am Do you have a Healthcare Power of Board Machine Set Up Operator? Yes January 21, 2024 4:34am Advance Directives Yes April 30, 2024 10:06am Living Will Yes April 24 10:37pm Do you have a Healthcare Power of Board Machine Set Up Operator? Yes April 24, 2024 10:37pm Name of Medical Power of Board Machine Set Up Operator tia April 24, 2024 10:37pm Advance Directive Response Recorded Date/ Time Living Will Yes February 14 10:43am Do you have a Healthcare Power of Board Machine Set Up Operator? Yes February 14, 2023 10:43am Living Will Yes January 20 4:34am Do you have a Healthcare Power of Board Machine Set Up Operator? Yes January 21, 2024 4:34am Advance Directives Yes April 30, 2024 10:06am Living Will Yes April 24 10:37pm Do you have a Healthcare Power of Board Machine Set Up Operator? Yes April 24, 2024 10:37pm Name of Medical Power of Board Machine Set Up Operator tia April 24, 2024 10:37pm Advance Directive Response Recorded Date/ Time Advance Directives Yes April 30, 2024 10:06am Advance Directive Response Recorded Date/ Time Do you have a Healthcare Power of Board Machine Set Up Operator? Yes September 26, 2024 3:39pm Advance Directives Yes April 30, 2024 10:06am Advance Directive Response Recorded Date/ Time Do you have a Healthcare Power of Board Machine Set Up Operator? Yes September 26, 2024 6:42pm Name of Medical Power of Board Machine Set Up Operator Tia Leos September 26, 2024 6:42pm Advance Directives Yes April 30, 2024 10:06am Advance Directive Response Recorded Date/ Time Living Will Yes January 20 4:34am Do you have a Healthcare Power of Board Machine Set Up Operator? Yes January 21, 2024 4:34am Do you have a Healthcare Power of Board Machine Set Up Operator? Yes September 26, 2024 6:42pm Name of Medical Power of Board Machine Set Up Operator Tia Leos September 26, 2024 6:42pm Advance Directives Yes April 30, 2024 10:06am Advance Directive Response Recorded Date/ Time Living Will Yes January 20 4:34am Do you have a Healthcare Power of Board Machine Set Up Operator? Yes January 21, 2024 4:34am Do you have a Healthcare Power of Board Machine Set Up Operator? Yes September 26, 2024 6:42pm Name of Medical Power of Board Machine Set Up Operator Tia Leos September 26, 2024 6:42pm Do you have a Healthcare Power of Board Machine Set Up Operator? Yes November 26, 2024 9:16am Advance Directives Yes April 30, 2024 10:06am Advance Directive Response Recorded Date/ Time Living Will Yes January 20 4:34am Do you have a Healthcare Power of Board Machine Set Up Operator? Yes January 21, 2024 4:34am Do you have a Healthcare Power of Board Machine Set Up Operator? Yes September 26, 2024 6:42pm Name of Medical Power of Board Machine Set Up Operator Tia Leos September 26, 2024 6:42pm Do you have a Healthcare Power of Board Machine Set Up Operator? Yes November 26, 2024 1:26pm Advance Directives Yes April 30, 2024 10:06am Advance Directive Response Recorded Date/ Time Living Will Yes January 20 4:34am Do you have a Healthcare Power of Board Machine Set Up Operator? Yes January 21, 2024 4:34am Do you have a Healthcare Power of Board Machine Set Up Operator? Yes September 26, 2024 6:42pm Name of Medical Power of Board Machine Set Up Operator Tia Leos September 26, 2024 6:42pm Do you have a Healthcare Power of Board Machine Set Up Operator? Yes November 26, 2024 1:26pm Do you have a Healthcare Power of Board Machine Set Up Operator? Yes December 23, 2024 8:30pm Advance Directives Yes April 30, 2024 10:06am Chief Complaint and Reason for Visit Chief Complaint 4 M FU UNSTABLE ANGINA, SOB UNSTABLE ANGINA, SOB UNSTABLE ANGINA, SOB UNSTABLE ANGINA, SOB UNSTABLE ANGINA, SOB HYPOXIA HYPOXIA HYPOXIA 1 M FU [address] fu Shortness of breath dizziness Reason [...] SOB HYPOXIA HYPOXIA HYPOXIA 1 M [address] fu Shortness of breath dizziness KIANNA; [...] SOB HYPOXIA HYPOXIA HYPOXIA 1 M [address] fu Shortness of breath dizziness KIANNA; [...] HYPOXIA HYPOXIA HYPOXIA 1 M FU [address] fu Shortness of breath dizziness KIANNA; [...] HYPOXIA HYPOXIA 1 M FU 9 m fu/[address] [place] [address] fu Shortness of breath dizziness KIANNA; LM [...] Chief Complaint HR 130 today per [facility] [employer] E-ORDER LEFT CAROTID BRUIT 3 M [...] per JR May 21, 2024 10:41am ALFORD SAFETY TECHNICIAN TO READ May 28, 2024 7:06am 30 DAY MONITOR May 28, 2024 9:00am unable to tolerate cpap, new oxygen requ irement June 02, 2024 7:43pm B12 inject June 04, 2024 1:20 pm 8-10 WK F/U June 10, 2024 12: 44pm B12 inject July 06, 2024 1:22 pm B12 inject August 06, 2024 2:27pm EKG (SAFETY TECHNICIAN) August 12, 2024 11:03 am EORDERS August [...] per JR May 21, 2024 10:41am ALFORD SAFETY TECHNICIAN TO READ May 28, 2024 7:06am 30 DAY MONITOR May 28, 2024 9:00am unable to tolerate cpap, new oxygen requ irement June 02, 2024 7:43pm B12 inject June 04, 2024 1:20 pm 8-10 WK F/U June 10, 2024 12: 44pm B12 inject July 06, 2024 1:22 pm B12 inject August 06, 2024 2:27pm EKG (SAFETY TECHNICIAN) August 12, 2024 11:03 am EORDERS August [...] note per May 21, 2024 10:41am ALFORD SAFETY TECHNICIAN TO READ May 28, 2024 7:06am 30 DAY MONITOR May 28, 2024 9:00am unable to tolerate cpap, new oxygen requ irement June 02, 2024 7:43pm B12 inject June 04, 2024 1:20 pm 8-10 WK F/U June 10, 2024 12: 44pm B12 inject July 06, 2024 1:22 pm B12 inject August 06, 2024 2:27pm EKG (SAFETY TECHNICIAN) August 12, 2024 11:03 am EORDERS August [...] note per May 21, 2024 10:41am ALFORD SAFETY TECHNICIAN TO READ May 28, 2024 7:06am 30 DAY MONITOR May 28, 2024 9:00am unable to tolerate cpap, new oxygen requ irement June 02, 2024 7:43pm B12 inject June 04, 2024 1:20 pm 8-10 WK F/U June 10, 2024 12: 44pm B12 inject July 06, 2024 1:22 pm B12 inject August 06, 2024 2:27pm EKG (SAFETY TECHNICIAN) August 12, 2024 11:03 am EORDERS August 12, 2024 11:27 am 6 M FU August 17, 2024 11:16 am B12 inject September 15, 2024 12:5 3pm Reason for Visit Admit Date Interstitial lung disease May 21, 2024 10:41am Chronic diastolic CHF (congestive heart failure) May 21, 2024 10:41am Essential (primary) hypertension [id number] 10:41am Dyspnea on exertion May 21, 2024 [...] per JR May 21, 2024 10:41am ALFORD SAFETY TECHNICIAN TO READ May 28, 2024 7:06am 30 DAY MONITOR May 28, 2024 9:00am unable to tolerate cpap, new oxygen requ irement June 02, 2024 7:43pm B12 inject June 04, 2024 1:20 pm 8-10 WK F/U June 10, 2024 12: 44pm B12 inject July 06, 2024 1:22 pm B12 inject August 06, 2024 2:27pm EKG (SAFETY TECHNICIAN) August 12, 2024 11:03 am EORDERS August [...] B12 inject August 06, 2024 2:27pm EKG (SAFETY TECHNICIAN) August 12, 2024 11:03 am EORDERS August [...] 9:59am Acute CVA (cerebrovascular accident) Robe 2024 5:17pm Hyperlipidemia September 26, 2024 5:17 [...] B12 inject August 06, 2024 2:27pm EKG (SAFETY TECHNICIAN) August 12, 2024 11:03 am EORDERS August 12, 2024 11:27 am 6 M FU August 17, 2024 11:16 am B12 inject September 15, 2024 12:5 3pm 5 M FU September 16, 2024 9:59 am CVA RULE OUT September 26, 2024 6:27 pm ACUTE CVA, IL OCCLUSION September 26, 2024 8:20pm ACUTE CVA, IL OCCLUSION September 27, 2024 8:01am ACUTE CVA, IL OCCLUSION September 28, 2024 2:42pm Reason for [...] 2024 9:59am Acute CVA (cerebrovascular accident) Aug 8:20pm Acute right MCA stroke September 26, [...] B12 inject August 06, 2024 2:27pm EKG (SAFETY TECHNICIAN) August 12, 2024 11:03 am EORDERS August 12, 2024 11:27 am 6 M FU August 17, 2024 11:16 am B12 inject September 15, 2024 12:5 3pm 5 M FU September 16, 2024 9:59 am CVA RULE OUT September 26, 2024 6:27 pm ACUTE CVA, IL OCCLUSION September 26, 2024 8:20pm ACUTE CVA, IL OCCLUSION September 27, 2024 8:01am ACUTE CVA, IL OCCLUSION September 28, 2024 2:42pm STROKE RX [...] CVA (cerebrovascular accident) Robe e 2024 8:20pm Hyperlipidemia October 12, 2024 10:4 6am Chief Complaint Admit Date B12 inject July 06, 2024 1:22 pm B12 inject August 06, 2024 2:27pm EKG (SAFETY TECHNICIAN) August 12, 2024 11:03 am EORDERS August 12, 2024 11:27 am 6 M FU August 17, 2024 11:16 am B12 inject September 15, 2024 12:5 3pm 5 M FU September 16, 2024 9:59 am CVA RULE OUT September 26, 2024 6:27 pm ACUTE CVA, IL OCCLUSION September 26, 2024 8:20pm ACUTE CVA, IL OCCLUSION September 27, 2024 8:01am ACUTE CVA, IL OCCLUSION September 28, 2024 2:42pm AFTER HOSPITAL VISIT October 12, 2024 10: 46am STROKE RX HERE October 13, 2024 11:0 0am LAVELLE- NANCY SEGURA ANDERSON/& NORMA ORDER October 13, [...] 26, 2024 8:20pm Acute CVA (cerebrovascular accident) Aug 8:20pm Hyperlipidemia October 12, 2024 10:4 6am Ischemic cerebrovascular accident (CVA) October 12, 2024 10:46am Polyneuropathy October 12, 2024 10:4 6am Fatigue October 12, 2024 10:4 6am Chief Complaint Admit Date B12 inject July 06, 2024 1:22 pm B12 inject August 06, 2024 2:27pm EKG (SAFETY TECHNICIAN) August 12, 2024 11:03 am EORDERS August 12, 2024 11:27 am 6 M FU August 17, 2024 11:16 am B12 inject September 15, 2024 12:5 3pm 5 M FU September 16, 2024 9:59 am CVA RULE OUT September 26, 2024 6:27 pm ACUTE CVA, IL OCCLUSION September 26, 2024 8:20pm ACUTE CVA, IL OCCLUSION September 27, 2024 8:01am ACUTE CVA, IL OCCLUSION September 28, 2024 2:42pm AFTER HOSPITAL VISIT October 12, 2024 10: 46am EOSISSY- NANCY SEGURA ANDERSON/& NORMA ORDER October 13, 2024 4:47pm STROKE RX HERE sp- memory loss September 2:30pm 6 M FU October 27, 2024 10:1 6am Reason for Visit Admit Date Fatigue July 06, 2024 1:22 pm Fatigue May 8th, 2025 2:27pm Hyperlipidemia August 17, 2024 11:16 am [...] B12 inject August 06, 2024 2:27pm EKG (SAFETY TECHNICIAN) August 12, 2024 11:03 am EORDERS August 12, 2024 11:27 am 6 M FU August 17, 2024 11:16 am B12 inject September 15, 2024 12:5 3pm 5 M FU September 16, 2024 9:59 am CVA RULE OUT September 26, 2024 6:27 pm ACUTE CVA, IL OCCLUSION September 26, 2024 8:20pm ACUTE CVA, IL OCCLUSION September 27, 2024 8:01am ACUTE CVA, IL OCCLUSION September 28, 2024 2:42pm AFTER HOSPITAL [...] B12 inject August 06, 2024 2:27pm EKG (SAFETY TECHNICIAN) August 12, 2024 11:03 am EORDERS August 12, 2024 11:27 am 6 M FU August 17, 2024 11:16 am B12 inject September 15, 2024 12:5 3pm 5 M FU September 16, 2024 9:59 am CVA RULE OUT September 26, 2024 6:27 pm ACUTE CVA, IL OCCLUSION September 26, 2024 8:20pm ACUTE CVA, IL OCCLUSION September 27, 2024 8:01am ACUTE CVA, IL OCCLUSION September 28, 2024 2:42pm AFTER HOSPITAL [...] B12 inject August 06, 2024 2:27pm EKG (SAFETY TECHNICIAN) August 12, 2024 11:03 am EORDERS August 12, 2024 11:27 am 6 M FU August 17, 2024 11:16 am B12 inject September 15, 2024 12:5 3pm 5 M FU September 16, 2024 9:59 am CVA RULE OUT September 26, 2024 6:27 pm ACUTE CVA, IL OCCLUSION September 26, 2024 8:20pm ACUTE CVA, IL OCCLUSION September 27, 2024 8:01am ACUTE CVA, IL OCCLUSION September 28, 2024 2:42pm AFTER HOSPITAL [...] 26, 2024 8:20pm Acute CVA (cerebrovascular accident) Aug 8:20pm Hyperlipidemia October 12, 2024 10:4 6am [...] B12 inject August 06, 2024 2:27pm EKG (SAFETY TECHNICIAN) August 12, 2024 11:03 am EORDERS August 12, 2024 11:27 am 6 M FU August 17, 2024 11:16 am B12 inject September 15, 2024 12:5 3pm 5 M FU September 16, 2024 9:59 am CVA RULE OUT September 26, 2024 6:27 pm ACUTE CVA, IL OCCLUSION September 26, 2024 8:20pm ACUTE CVA, IL OCCLUSION September 27, 2024 8:01am ACUTE CVA, IL OCCLUSION September 28, 2024 2:42pm AFTER HOSPITAL VISIT October 12, 2024 10: 46am EORDERS- COLTON, NANCY, MARI/& NORMA ORDER October 13, 2024 4:47pm [...] 26, 2024 8:20 pm Interstitial lung disease Jackie 28th, 202 5 8:20pm Obesity September 26, 2024 8:20 pm KIANNA (obstructive sleep apnea) September 26, 2024 8:20pm Renal insufficiency September 26, 2024 8:20 pm 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 with hyperglyce garrick September 26, 2024 8:20pm Acute CVA (cerebrovascular accident) Robe e 2024 8:20pm Hyperlipidemia October 12, 2024 10:4 [...] B12 inject August 06, 2024 2:27pm EKG (SAFETY TECHNICIAN) August 12, 2024 11:03 am EORDERS August 12, 2024 11:27 am 6 M FU August 17, 2024 11:16 am B12 inject September 15, 2024 12:5 3pm 5 M FU September 16, 2024 9:59 am CVA RULE OUT September 26, 2024 6:27 pm ACUTE CVA, IL OCCLUSION September 26, 2024 8:20pm ACUTE CVA, IL OCCLUSION September 27, 2024 8:01am ACUTE CVA, IL OCCLUSION September 28, 2024 2:42pm AFTER HOSPITAL VISIT October 12, 2024 10: 46am NANCY SERRANO ANDERSON/& NORMA ORDER October 13, [...] September 26, 2024 6:27 pm ACUTE CVA, IL OCCLUSION September 26, 2024 8:20pm ACUTE CVA, IL OCCLUSION September 27, 2024 8:01am ACUTE CVA, IL OCCLUSION September 28, 2024 2:42pm AFTER HOSPITAL VISIT October 12, 2024 10: 46am NANCY SERRANO ANDERSON/& NORMA ORDER October 13, [...] :54am Chief Complaint Admit Date B12 inject September 15, 2024 12:5 3pm 5 M FU September 16, 2024 9:59 am CVA RULE OUT September 26, 2024 6:27 pm ACUTE CVA, IL OCCLUSION September 26, 2024 8:20pm ACUTE CVA, IL OCCLUSION September 27, 2024 8:01am ACUTE CVA, IL OCCLUSION September 28, 2024 2:42pm AFTER HOSPITAL [...] 9:00am VENOFER 100MG December 10, 2024 1:18pm Amb Documentation December 16, 2024 9:58am wound December 17, 2024 9:41am wound December 17, 2024 12:16pm VENOFER 100MG December 17, 2024 1:50pm neuro sysm December 23, 2024 8:30pm Reason for Visit Admit Date Fatigue September 15, 2024 12:5 3pm CKD [...] 26, 2024 8:20pm Acute CVA (cerebrovascular accident) Aug 8:20pm Acute right MCA stroke September 26, 2024 8 :20pm Ischemic cerebrovascular accident (CVA) October 12, 2024 10:46am Hyperlipidemia October 12, 2024 10:4 6am Polyneuropathy October 12, 2024 10:4 6am Fatigue October 12, 2024 10:4 6am Paroxysmal atrial fibrillation September 10:16am Dyspnea on exertion October 27, 2024 10:1 6am Ischemic cerebrovascular accident (CVA) October 27, 2024 10:16am Chronic diastolic CHF (congestive heart failure) October 27, 2024 10:16am Essential (primary) hypertension October 272024 10:16am Interstitial lung disease October 27 10:16am Iron deficiency anemia due to chronic bl ood loss November 03, 2024 12:48pm Fatigue November 12, 2024 10 :47am Chronic respiratory failure with hypoxia November 25, 2024 12:33pm Chronic diastolic CHF (congestive heart failure) November 25, 2024 12:33pm Interstitial lung disease November 25, 2 025 12:33pm Obesity November 25, 2024 12 :33pm KIANNA (obstructive sleep apnea) October 12:33pm Rheumatoid factor positive November 25, 2024 12:33pm Cellulitis November 26, 2024 11 :54am Debility November 26, 2024 11 :54am Sepsis November 26, 2024 11 :54am 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 December 17, 2024 9:41am Current use of shelter anticoagulation December 17, 2024 9:41am Diabetes mellitus, type II November 9:41am Paroxysmal atrial fibrillation December 17, 2024 9:41am Chronic respiratory failure December 172024 9:41am Chronic respiratory failure with hypoxia December 17, 2024 9:41am Reason for Referral Specialty Diagnoses / Procedures Referred By Contac t Referred To Contact Radiology Diagnoses Bilateral carotid artery stenosis Ischemic cerebrovascular accident (CVA) (HCC) Procedures CTA head neck angio w and wo IV contrast Oziel Culp MD [address] [place] [address] Referral ID Status Reason Start Date Expiration Date V isits Requested Visits Authorized [id number] Pending Review 01/06/2024 01/05/2025 1 1 Specialty Diagnoses / Procedures Referred By Contac t Referred To Contact Diagnoses Cerebrovascular accident (CVA), unspecified mechanism (HCC) Harmeet Stallworth MD [address] [place] [address] Referral ID Status Reason Start Date Expiration Date Visits Re quested Visits Authorized [id number] Closed 1 1 Additional Source Comments (unrecognized [...] DATE CREATED AUTHOR AUTHOR'S ORGANIZ ATION 07/25/2024 [facility] DATE CREATED AUTHOR AUTHOR'S ORGANIZ ATION 07/26/2024 [facility] DATE CREATED AUTHOR AUTHOR'S ORGANIZ ATION 08/08/2024 [facility] DATE CREATED AUTHOR AUTHOR'S ORGANIZ ATION 11/25/2024 [facility] DATE CREATED AUTHOR AUTHOR'S ORGANIZ ATION 01/18/2025 [facility] DATE CREATED AUTHOR AUTHOR'S ORGANIZ ATION 01/20/2025 [facility] DATE CREATED AUTHOR AUTHOR'S ORGANIZ ATION 01/20/2025 [facility] Source Comments (unrecognize d section and content) In the event this informatio n is protected by the Federal Confidentiality of Alcohol and Drug Abuse Patient Records regulations: The Federal rules restrict any use of the information to criminally investigate or prosecute any alcohol or drug abuse patient.[facility] Goals (unrecognized section and content) Goals may [...] Provider, Referrin g Provider Active Oren Sky BUTANE COMPRESSOR OPERATOR, BUTANE COMPRESSOR OPERATOR-C Attending Provider Active Team Status: Active Member [...] Provider, Other Pr ovider Active Oren Sky BUTANE COMPRESSOR OPERATOR, BUTANE COMPRESSOR OPERATOR-C Attending Provider, Referring Pro vider Active Team [...] Provider, Referrin g Provider Active Fior Vallejo BUTANE COMPRESSOR OPERATOR, BUTANE COMPRESSOR OPERATOR-C Attending Provider Active Team Status: Inactive Member [...] Lydia Segura PA, PA Active Oren Sky BUTANE COMPRESSOR OPERATOR, BUTANE COMPRESSOR OPERATOR-C Attending Provider Active Team Status: Active Member [...] MD Attending Provider, Other Provi erika Active Shantiemery Baum PA, PA-C Referring Provider, Other Pro vider Active Team Status: Inactive Member Role Status Dates Dr. Radha Khan MD Primary Care Provider Active Dr. Karol Rushing MD Other Provider Active Shanti Baum PA, PA-C Attending Provider, Referring Provider Active Team Status: Inactive Member Role Status Dates Dr. Radha Khan MD Primary Care Provider Active Oren Sky BUTANE COMPRESSOR OPERATOR, BUTANE COMPRESSOR OPERATOR-C Attending Provider, Referring Pro vider Active Team Status: Inactive Member Role Status Dates Dr. Radha Khan MD Primary Care Provider, Referrin g Provider Active Dr. Ochoa Dobbs MD Attending Provider Active Bead Wire Taper Relationship Specialty Start Date End Date Radha Khan [address] [address] PCP - General Family Medicine 10/03/23 Bead Wire Taper Relationship Specialty Start Date End Date Radha Khan [address] [place] [address] PCP - General Family Medicine 10/03/23 Bead Wire Taper Relationship Specialty Start Date End Date Radha Khan [address] [place] [address] PCP - General Family Medicine 10/03/23 Bead Wire Taper Relationship Specialty Start Date End Date Radha Khan [address] [place] [address] PCP - General Family Medicine 10/03/23 Bead Wire Taper Relationship Specialty Start Date End Date SamanthapalmajonnyRadha [address] [place] [address] PCP - General Family Medicine 10/03/23 Bead Wire Taper Relationship Specialty Start Date End Date FabiolajonnyRadha [address] [place] [address] PCP - General Family Medicine 10/03/23 Bead Wire Taper Relationship Specialty Start Date End Date BillRadha [address] [place] [address] PCP - General Family Medicine 10/03/23 Bead Wire Taper Relationship Specialty Start Date End Date Bill Radha Mcmahon [address] [place] [address] PCP - General Family Medicine 10/03/23 Suzy Jauregui MD [address] [place] [address] [id number] Consulting Physician Vascular Surgery 04/24/24 Bead Wire Taper Relationship Specialty Start Date End Date Radha Khan [address] [place] [address] PCP - General Family Medicine 10/03/23 Suzy Jauregui MD [address] [place] [address] Consulting Physician Vascular Surgery 04/24/24 Bead Wire Taper Relationship Specialty Start Date End Date Radha Khan [address] [place] [address] PCP - General Family Medicine 10/03/23 Suzy Jauregui MD [address] [place] [address] Consulting Physician Vascular Surgery 04/24/24 Bead Wire Taper Relationship Specialty Start Date End Date Radha Khan [address] [facility] [address] [place] [phone] PCP - General Family Medicine 10/03/23 Suzy Jauregui MD [address] [place] [address] Consulting Physician Vascular Surgery 04/24/24 Bead Wire Taper Relationship Specialty Start Date End Date Radha Khan MD [address] [place] [address] PCP - General Family Medicine 07/24/24 Bead Wire Taper Relationship Specialty Start Date End Date Radha Khan MD [address] [place], [place] [phone] PCP - General Family Medicine 07/24/24 Bead Wire Taper Relationship Specialty Start Date End Date Radha Khan MD [address] [place] [address] PCP - General Family Medicine 07/24/24 Team [...] April 16, 2024 End: April 16, 2024 Jessica Gerardo NP-C Attending Provider Active Start: April [...] Edmund Dey MD Other Provider Active Start: Calos stiles 2024 End: April 25, 2024 Dr. Kristin [...] Provider Active Start: May 28, 2024 Lydia GRIFFITHS, PA Referring Provider Active Start: May 28, 2024 Team Status: Active Member Role Status Dates Dr. Radha Khan MD Primary Care Provider Active Start: May 28, 2024 Dr. Sumanth Hanna MD Attending Provider Active S tart: May 28, 2024 Lydia GRIFFITHS PA Referring Provider Active Start: May 28, 2024 Team Status: Inactive Member Role Status Dates Dr. Radha Khan MD Primary Care Provider Active Start: June 02, 2024 End: June 02, 2024 Chen Rojas NP-C Attending Provider Active Start: June 02, 2024 End: June 02, 2024 Chen Rojas NP-C Referring Provider Active Start: June 02, 2024 [...] June 10, 2024 End: June 10, 2024 Chen Rojas NP-C Attending Provider Active Start: June 10, 2024 [...] August 17, 2024 End: August 17, 2024 Bead Wire Taper Relationship Specialty Start Date End Date Radha Khan MD [address] [facility] [address] [place] [address] PCP - General Family Medicine 07/24/24 Team [...] September 16, 2024 End: September 16, 2024 Bead Wire Taper Relationship Specialty Start Date End Date Radha Khan MD [address] [facility] [address] [place] [address] PCP - General Family Medicine 07/24/24 Bead Wire Taper Relationship Specialty Start Date End Date Radha Khan MD [address] [address] [place] [address] PCP - General Family Medicine 07/24/24 Team [...] 2024 End: August 06, 2024 Dr. Toni Vnan MD Attending Provider Active Start: August 06, [...] August 17, 2024 End: August 17, 2024 rBandt Winter MD Primary Care Provider Active St [...] Active Sta rt: September 27, 2024 Dr. Xioa Berrios MD Admit Provider Active Star t: [...] September 16, 2024 End: September 16, 2024 Bradnt Winter MD Primary Care Provider Active St [...] Start : September 26, 2024 Dr. Joao rAredondo MD Other Provider Active St art: September [...] Active Start: September 27, 2024 Dr. Julius Floers MD Other Provider Active Start : September [...] 13, 2024 End: October 13, 2024 Lydia Segura PA, PA Other Provider Active Start: October 13, [...] 13, 2024 End: October 13, 2024 Lydia Segura PA, PA Other Provider Active Start: October 13, 2024 End: October 13, 2024 Team Status: Active Member Role/Relationship Status Dates Brandt Winter MD Primary Care Provider Active St art: October 23, 2024 Dr. Karina Benítez , DO Attending Provider Active S tart: October 23, 2024 Dr. Karina Benítez , DO Referring Provider Active S tart: October 23, 2024 Team Status: Inactive Member Role/Relationship Status Dates Dr. Radha Khan MD Referring Provider Active Start: October 27, 2024 End: October 27, 2024 Lydia Segura PA, PA Attending Provider Active Start: October 27, 2024 End: October 27, 2024 Brandt Winter MD Primary Care Provider Active St art: October 27, 2024 End: October 27, 2024 Bead Wire Taper Relationship Specialty Start Date End Date Radha Khan [address] [facility] [address] [place] [phone] PCP - General Family Medicine 10/03/23 Suzy Jauregui MD [address] [facility] [address] [place] [phone] Consulting Physician Vascular Surgery 04/24/24 Bead Wire Taper Relationship Specialty Start Date End Date Radha Khan [address] [facility] [address] [place] [phone] PCP - General Family Medicine 10/03/23 Suzy Jauregui MD [address] [place] [phone] Consulting Physician Vascular Surgery 04/24/24 Team Status: [...] Team Status: Active Member Role/Relationship Status Dates rBandt Winter MD Primary Care Provider Active St [...] art: November 09, 2024 Dr. Karina Benítez DO Attending Provider Active S tart: November 09, [...] 2024 End: November 25, 2024 Chen Rojas , SAV-C Attending Provider Active Start: November 25, 2024 [...] Attending Provider Active Start: November 26, 2024 Bead Wire Taper Relationship Specialty Start Date End Radha Khan MD [address] [facility] [address] [place] [address] PCP - General Family Medicine 07/24/24 Team [...] Star t: November 27, 2024 Dr. Ochoa Jopperi , DO Attending Provider Active Start: November 27, 2024 Dr. Ochoa Johnson , DO Other Provider Active Star t: November 27, 2024 Team Status: Active Member Role/Relationship Status Dates Brandt Winter MD Primary Care Provider Active St art: November 28, 2024 Dr. Betina Martinez MD Emergency Provider Active S tart: November 28, 2024 Dr. Ochoa Johnson , DO Admit Provider Active Star t: November [...] December 10, 2024 End: December 10, 2024 Team Status: Active Member Role/Relationship Status Dates Brandt Winter MD Primary care physician Active Team Status: Inactive Member Role/Relationship Status Dates Dr. Toni Vann MD Attending physician Active Start: September 15, 2024 End: September 15, 2024 Dr. Toni Vann MD Referring Provider Active Start: September 15, 2024 End: September 15, 2024 Brandt Winter MD Primary care physician Active S tart: September 15, 2024 End: September 15, 2024 Team Status: Inactive Member Role/Relationship Status Dates PITO Phan Attending physician Active Start: September 16, 2024 End: September 16, 2024 Brandt Winter MD Primary care physician Active S tart: September 16, 2024 End: September 16, 2024 Brandt Winter MD Referring Provider Active Start : September 16, 2024 End: September 16, 2024 Team Status: Active Member Role/Relationship Status Dates Brandt Winter MD Primary care physician Active S tart: September 26, 2024 Dr. Angel Avitia MD Emergency Department Physician Active Start: September 26, 2024 Dr. Xiao Berrios MD Admitting physician Active Start: September 26, 2024 Dr. Xiao Berrios MD Attending physician Active Start: September 26, 2024 Dr. Xiao Berrios MD Nurse Practitioner Active Start: September 26, 2024 Edmund Dey MD Nurse Practitioner Active Start : September 26, 2024 Dr. Kristin Boyd MD Nurse Practitioner Active St art: September 26, 2024 Amy Dumont MD Nurse Practitioner Active S tart: September 26, 2024 Dr. Bethany Velasco DO Nurse Practitioner Active Start: September 26, 2024 Dr. Lucy Granado MD Nurse Practitioner Active St art: September 26, 2024 Dr. Giancarlo Lomeli MD Nurse Practitioner Active Start: September 26, 2024 Dr. Patrizia Burk MD Nurse Practitioner Active S tart: September 26, 2024 Dr. Alden Lazaro MD Nurse Practitioner Active St art: September 26, 2024 Dr. Julius Flores MD Nurse Practitioner Active S tart: September 26, 2024 Dr. Fred Talbert MD Nurse Practitioner Active Start: September 26, 2024 Jennifer Toledo MD Nurse Practitioner Active S tart: September 26, 2024 Dr. Joao Arredondo MD Nurse Practitioner Active Start: September 26, 2024 Dr. Palak Garvin MD Nurse Practitioner Active S tart: September 26, 2024 Dr. Michelle Lyons MD Nurse Practitioner Active Start: September 26, 2024 Dr. Indigo Coates MD Nurse Practitioner Active Start: September [address] Dr. Lavelle Chakraborty MD Nurse Practitioner Active Start: September 26, 2024 Dr. Rogers Heart MD Nurse Practitioner Active Start: September 26, 2024 Dr. Abrahan Bejarano MD Nurse Practitioner Active Start: September 26, 2024 Dr. Mindy Benítez MD Nurse Practitioner Active St art: September 26, 2024 Ryan Riley MD Nurse Practitioner Active St art: September 26, 2024 Team Status: Inactive Member Role/Relationship Status Dates Brandt Winter MD Primary care physician Active S tart: September 26, 2024 End: September 28, 2024 Dr. Angel Avitia MD Referring Provider Active Sta rt: September 26, 2024 End: September 28, 2024 Dr. Angel Avitia MD Emergency Department Physician Active Start: September 26, 2024 End: September 28, 2024 Dr. Xiao Berrios MD Admitting physician Active Start: September 26, 2024 End: September 28, 2024 Dr. Xiao Berrios MD Nurse Practitioner Active Start: September 26, 2024 End: September 28, 2024 Edmund Dey MD Nurse Practitioner Active Start : September 26, 2024 End: September 28, 2024 Dr. Kristin Boyd MD Nurse Practitioner Active St art: September 26, 2024 End: September 28, 2024 Amy Dumont MD Nurse Practitioner Active S tart: September 26, 2024 End: September 28, 2024 Dr. Bethany Velasco DO Nurse Practitioner Active Start: September 26, 2024 End: September 28, 2024 Dr. Lucy Granado MD Nurse Practitioner Active St art: September 26, 2024 End: September 28, 2024 Dr. Giancarlo Lomeli MD Nurse Practitioner Active Start: September 26, 2024 End: September 28, 2024 Dr. Patrizia Burk MD Nurse Practitioner Active S tart: September 26, 2024 End: September 28, 2024 Dr. Alden Lazaro MD Nurse Practitioner Active St art: September 26, 2024 End: September 28, 2024 Dr. Julius Flores MD Nurse Practitioner Active S tart: September 26, 2024 End: September 28, 2024 Dr. Fred Talbert MD Nurse Practitioner Active Start: September 26, 2024 End: September 28, 2024 Jennifer Toledo MD Nurse Practitioner Active S tart: September 26, 2024 End: September 28, 2024 Dr. Joao Arredondo MD Nurse Practitioner Active Start: September 26, 2024 End: September 28, 2024 Dr. Palak Garvin MD Nurse Practitioner Active S tart: September 26, 2024 End: September 28, 2024 Dr. Michelle Lyons MD Nurse Practitioner Active Start: September 26, 2024 End: September 28, 2024 Dr. Indigo Coates MD Nurse Practitioner Active Start: September 26 End: September 28, 2024 Dr. Lavelle Chakraborty MD Nurse Practitioner Active Start: September 26, 2024 End: September 28, 2024 Dr. Rogers Heart MD Nurse Practitioner Active Start: September 26, 2024 End: September 28, 2024 Dr. Abrahan Bejarano MD Nurse Practitioner Active Start: September 26, 2024 End: September 28, 2024 Dr. Mindy Benítez MD Nurse Practitioner Active St art: September 26, 2024 End: September 28, 2024 Ryan Riley MD Nurse Practitioner Active St art: September 26, 2024 End: September 28, 2024 Dr. Karina Benítez DO Attending physician Active Start: September 26, 2024 End: September 28, 2024 Team Status: Active Member Role/Relationship Status Dates Brandt Winter MD Primary care physician Active S tart: September 27, 2024 Dr. Angel Avitia MD Emergency Department Physician Active Start: September 27, 2024 Dr. Xiao Berrios MD Admitting physician Active Start: September 27, 2024 Dr. Xiao Berrios MD Nurse Practitioner Active Start: September 27, 2024 Edmund Dey MD Nurse Practitioner Active Start : September 27, 2024 Dr. Kristin Boyd MD Nurse Practitioner Active St art: September 27, 2024 Amy Dumont MD Nurse Practitioner Active S tart: September 27, 2024 Dr. Bethany Velasco DO Nurse Practitioner Active Start: September 27, 2024 Dr. Lucy Granado MD Nurse Practitioner Active St art: September 27, 2024 Dr. Giancarlo Lomeli MD Nurse Practitioner Active Start: September 27, 2024 Dr. Patrizia Burk MD Nurse Practitioner Active S tart: September 27, 2024 Dr. Alden Lazaro MD Nurse Practitioner Active St art: September 27, 2024 Dr. Julius Flores MD Nurse Practitioner Active S tart: September 27, 2024 Dr. Fred Talbert MD Nurse Practitioner Active Start: September 27, 2024 Jennifer Toledo MD Nurse Practitioner Active S tart: September 27, 2024 Dr. Joao Arredondo MD Nurse Practitioner Active Start: September 27, 2024 Dr. Palak Garvin MD Nurse Practitioner Active S tart: September 27, 2024 Dr. Michelle Lyons MD Nurse Practitioner Active Start: September 27, 2024 Dr. Indigo Coates MD Nurse Practitioner Active Start: September 27 Dr. Lavelle Chakraborty MD Nurse Practitioner Active Start: September 27, 2024 Dr. Rogers Heart MD Nurse Practitioner Active Start: September 27, 2024 Dr. Abrahan Bejarano MD Nurse Practitioner Active Start: September 27, 2024 Dr. Mindy Benítez MD Nurse Practitioner Active St art: September 27, 2024 Ryan Riley MD Nurse Practitioner Active St art: September 27, 2024 Dr. Karina Benítez DO Attending physician Active Start: September 27, 2024 Dr. Karina Benítez , Nurse Practitioner Active S tart: September 27, 2024 Team Status: Active Member Role/Relationship Status Dates Brandt Winter MD Primary care physician Active S tart: September 28, 2024 Dr. Sarah Parada MD Attending physician Active Start: September 28, 2024 Team Status: Active Member Role/Relationship Status Dates Brandt Winter MD Primary care physician Active S tart: September 28, 2024 Dr. Angel Avitia MD Emergency Department Physician Active Start: September 28, 2024 Dr. Xiao Berrios MD Admitting physician Active Start: September 28, 2024 Dr. Xiao Berrios MD Nurse Practitioner Active Start: September 28, 2024 Edmund Dey MD Nurse Practitioner Active Start : September 28, 2024 Dr. Kristin Boyd MD Nurse Practitioner Active St art: September 28, 2024 Amy Dumont MD Nurse Practitioner Active S tart: September 28, 2024 Dr. Bethany Velasco DO Nurse Practitioner Active Start: September 28, 2024 Dr. Lucy Granado MD Nurse Practitioner Active St art: September 28, 2024 Dr. Giancarlo Lomeli MD Nurse Practitioner Active Start: September 28, 2024 Dr. Patrizia Burk MD Nurse Practitioner Active S tart: September 28, 2024 Dr. Alden Lazaro MD Nurse Practitioner Active St art: September 28, 2024 Dr. Julius Flores MD Nurse Practitioner Active S tart: September 28, 2024 Dr. Fred Talbert MD Nurse Practitioner Active Start: September 28, 2024 Jennifer Toledo MD Nurse Practitioner Active S tart: September 28, 2024 Dr. Joao Arredondo MD Nurse Practitioner Active Start: September 28, 2024 Dr. Palak Garvin MD Nurse Practitioner Active S tart: September 28, 2024 Dr. Michelle Lyons MD Nurse Practitioner Active Start: September 28, 2024 Dr. Indigo Coates MD Nurse Practitioner Active Start: September 28 Dr. Lavelle Chakraborty MD Nurse Practitioner Active Start: September 28, 2024 Dr. Rogers Heart MD Nurse Practitioner Active Start: September 28, 2024 Dr. Abrahan Bejarano MD Nurse Practitioner Active Start: September 28, 2024 Dr. Mindy Benítez MD Nurse Practitioner Active St art: September 28, 2024 Ryan Riley MD Nurse Practitioner Active St art: September 28, 2024 Dr. Karina Benítez DO Attending physician Active Start: September 28, 2024 Dr. Karina Benítez DO Nurse Practitioner Active S tart: September 28, 2024 Team Status: Inactive Member Role/Relationship Status Dates Brandt Winter MD Primary care physician Active S tart: October 12, 2024 End: October 12, 2024 Brandt Winter MD Referring Provider Active Start : October 12, 2024 End: October 12, 2024 Dr. Toni Vann MD Attending physician Active Start: October 12, 2024 End: October 12, 2024 Team Status: Inactive Member Role/Relationship Status Dates Brandt Winter MD Primary care physician Active S tart: October 13, 2024 End: October 13, 2024 Brandt Winter MD Attending physician Active Star t: October 13, 2024 End: October 13, 2024 Brandt Winter MD Referring Provider Active Start : October 13, 2024 End: October 13, 2024 Dr. Toni Vann MD Nurse Practitioner Active Start: October 13, 2024 End: October 13, 2024 PITO Phan Nurse Practitioner Active Start: October 13, 2024 End: October 13, 2024 Lydia GRIFFITHS, PA Nurse Practitioner Active Start: October 13, 2024 End: October 13, 2024 Team Status: Inactive Member Role/Relationship Status Dates Dr. Radha Khan MD Referring Provider Active Start: October 27, 2024 End: October 27, 2024 Lydia GRIFFITHS, PA Attending physician Active Start: October 27, 2024 End: October 27, 2024 Brandt Winter MD Primary care physician Active S tart: October 27, 2024 End: October 27, 2024 Team Status: Inactive Member Role/Relationship Status Dates Dr. Rito Lundberg MD Attending physician Active Start: November 03, 2024 End: November 03, 2024 Brandt Winter MD Primary care physician Active S tart: November 03, 2024 End: November 03, 2024 Brandt Winter MD Referring Provider Active Start : November 03, 2024 End: November 03, 2024 Team Status: Inactive Member Role/Relationship Status Nir Winter MD Primary care physician Active S tart: November 12, 2024 End: November 12, 2024 Dr. Toni Vann MD Attending physician Active Start: November 12, 2024 End: November 12, 2024 Dr. Toni Vann MD Referring Provider Active Start: November 12, 2024 End: November 12, 2024 Team Status: Inactive Member Role/Relationship Status Nir Winter MD Primary care physician Active S tart: November 19, 2024 End: November 19, 2024 Dr. Karina Benítez DO Attending physician Active Start: November 19, 2024 End: November 19, 2024 Dr. Karina Benítez DO Referring Provider Active S tart: November 19, 2024 End: November 19, 2024 Team Status: Inactive Member Role/Relationship Status Nir Winter MD Primary care physician Active S tart: November 25, 2024 End: November 25, 2024 Brandt Winter MD Referring Provider Active Start : November 25, 2024 End: November 25, 2024 PITO Peña Attending physician Active Start: November 25, 2024 End: November 25, 2024 Team Status: Inactive Member Role/Relationship Status Nir Winter MD Primary care physician Active S tart: November 26, 2024 End: November 28, 2024 Dr. Betina Martinez MD Emergency Department Physician Ac tive Start: November 26, 2024 End: November 28, 2024 Dr. Ochoa Johnson DO Admitting physician Active Start: November 26, 2024 End: November 28, 2024 Dr. Ochoa Johnson DO Attending physician Active Start: November 26, 2024 End: November 28, 2024 Team Status: Active Member Role/Relationship Status Nir Winter MD Primary care physician Active S tart: November 26, 2024 Dr. Betina Martinez MD Emergency Department Physician Ac tive Start: November 26, 2024 Dr. Ochoa Johnson DO Attending physician Active Start: November 26, 2024 Team Status: Active Member Role/Relationship Status Dates Brandt Winter MD Primary care physician Active S tart: November 27, 2024 Dr. Betina Martinez MD Emergency Department Physician Ac tive Start: November 27, 2024 Dr. Ochoa Johnson DO Admitting physician Active Start: November 27, 2024 Dr. Ochoa Johnson DO Attending physician Active Start: November 27, 2024 Dr. Ochoa Johnson DO Nurse Practitioner Active Start: November 27, 2024 Team Status: Active Member Role/Relationship Status Dates Brandt Winter MD Primary care physician Active S tart: November 28, 2024 Dr. Betina Martinez MD Emergency Department Physician Ac tive Start: November 28, 2024 Dr. Ochoa Johnson DO Admitting physician Active Start: November 28, 2024 Dr. Ochoa Johnson DO Attending physician Active Start: November 28, 2024 Dr. Ochoa Johnson DO Nurse Practitioner Active Start: November 28, 2024 Team Status: Active Member Role/Relationship Status Dates Dr. Radha Khan MD Primary care physician Active Start: December 09, 2024 Dr. Rito Lundberg MD Attending physician Active Start: December 09, 2024 Dr. Rito Lundberg MD Referring Provider Active Start: December 09, 2024 Team Status: Inactive Member Role/Relationship Status Dates Brandt Winter MD Primary care physician Active S tart: December 10, 2024 End: December 10, 2024 Brandt Winter MD Attending physician Active Star t: December 10, 2024 End: December 10, 2024 Brandt Winter MD Referring Provider Active Start : December 10, 2024 End: December 10, 2024 Team Status: Active Member Role/Relationship Status Nir Winter MD Primary care physician Active S tart: December 16, 2024 Joanie Neil Attending physician Active Start: December 16, 2024 Team Status: Active Member Role/Relationship Status Nir Winter MD Primary care physician Active S tart: December 17, 2024 Brandt Winter MD Referring Provider Active Start : December 17, 2024 Dr. Marjorie Hernandez MD Attending physician Active Start: December 17, 2024 Team Status: Active Member Role/Relationship Status Nir Winter MD Primary care physician Active S tart: December 17, 2024 Brandt Winter MD Referring Provider Active Start : December 17, 2024 Dr. Marjorie Hernandez MD Attending physician Active Start: December 17, 2024 Dr. Marjorie Hernandez MD Nurse Practitioner Active Start: December 17, 2024 Team Status: Inactive Member Role/Relationship Status Nir Winter MD Primary care physician Active S tart: December 17, 2024 End: December 17, 2024 Brandt Winter MD Attending physician Active Star t: December 17, 2024 End: December 17, 2024 Brandt Winter MD Referring Provider Active Start : December 17, 2024 End: December 17, 2024 Team Status: Inactive Member Role/Relationship Status Nir Winter MD Primary care physician Active S tart: December 23, 2024 End: December 24, 2024 Dr. Juan Diego Davis DO Attending physician Active Start: December 23, 2024 End: December 24, 2024 Dr. Juan Diego Davis DO Emergency Departme nt Physician Active Start: December 23, 2024 End: December 24, 2024 Team Status: Inactive Member Role/Relationship Status Nir Winter MD Primary care physician Active S tart: December 17, 2024 End: December 29, 2024 Brandt Winter MD Referring Provider Active Start : December 17, 2024 End: December 29, 2024 Dr. 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 Relationship Specialty Start Date End Date Radha Khan MD [address] [place] [address] PCP - General Family Medicine 07/24/24 Bead Wire Taper Relationship Specialty Start Date End Date Radha Khan [address] [place] [phone] PCP - General Family Medicine 10/03/23 Suzy Jauregui MD [address] [place] [address] Consulting Physician Vascular Surgery 04/24/24 Bead Wire Taper Relationship Specialty Start Date End Date Radha Khan MD [address] [place] [address] PCP - General Family Medicine 07/24/24 Bead Wire Taper Relationship Specialty Start Date End Date Radha Khan MD [address] [place] [address] PCP - General Family Medicine 07/24/24 Bead Wire Taper Relationship Specialty Start Date End Date Radha Khan [address] [place] [phone] PCP - General Family Medicine 10/03/23 Suzy Jauregui MD [address] [place] [address] Consulting Physician Vascular Surgery 1/24/25 Reason for Visit (unrecogniz ed section and content) Specialty Diagnoses / Procedures Referred By Luke rubi Referred To Contact Diagnoses carotid stenosis Procedures . Joe Rocha MD [address] [place] [address] [address] [place] [phone] Referral ID Status Reason Start Date Expiration Date Visits Re quested Visits Authorized [id number] 1 Reason Comments New Patient New stroke 10/02, mult iple mini strokes since. No current deficits per patient. Reason Comments Follow-up discuss carotid dupl ex 04/06/23 Reason Comments New Patient Visit Reason Comments pt fuv Reason Comments Follow-up Reason Comments Med Refill Reason Comments FUV ILD Reason Comments FUV Reason Comments Follow-up Scheduled Active and Recently [...] RN) 09 (Given - Provider: Nely Lambert RN)2033 (Given - Provider: Dalila Helms RN) 08 (Given - Provider: Dariana Lawrence, CAMILA) aspirin EC tablet 81 mg 81 mg, Oral, Daily, First dose on Sat10/04/23 at 0900, Do not crush, chew, or split. 09 (Given - Provider: Nely Lambert RN) 08 (Given - Provider: Dariana Lawrence, CAMILA) atorvastatin (Lipitor) tablet 80 mg 80 mg, Oral, Nightly, First dose on Freida 10/03/23 at 2130 2242 (Given - Provider: Dalila Helms, CAMILA) 2033 (Given - Provider: Dalila Helms, CAMILA) busPIRone (Buspar) tablet 10 mg 10 mg, Oral, 3 times daily, First dose on Sat10/03/23 at 2130 2242 (Given - Provider: Dalila Helms RN) 0900 (Given - Provider: Nely Lambert RN)1320 (Given - Provider: Nely Lambert RN)2034 (Given - Provider: Dalila Helms RN) 0826 (Given - Provider: Dariana Lawrence RN)1403 (Given - Provider: Dariana Lawrence RN) dapagliflozin [...] 08 (Given - Provider: Dariana Lawrence RN) furosemide [...] Nely Lambert RN)1321 (Given - Provider: Nely Burgy, RN)1736 (Given - Provider: Nely Lambert RN) [...] BE BASED ON THE PRIMARY CLINICAL RECORDS. [employer] provides no warranty or guarantee of the accuracy or completeness of information in this document.
[2025-01-22 03:00] LABS: Anion Gap 16 (5-15); BUN 15 mg/dL (4-19); BUN/Creat Ratio 15.8 RATIO (10-20); Calcium,Total 8.8 mg/dL (7.6-11.0); Carbon Dioxide 21.2 mmol/L (21.0-32.0); Chloride 100 mmol/L (98-108); Estimated Creatinine Clearance 114.32 ml/min (50-250); Glucose 132 mg/dL (70-99); Potassium 3.5 mmol/L (3.3-5.1)
[2025-01-22 03:02] LABS: Pro- Brain NATRIURETIC PEPTIDE 4221 pg/mL (<=900); Troponin T High Sensitivity 56 ng/L (<=22)
--- NOTE | 2025-01-22 03:50 | PCM.HP.STD ---
[facility] - General General Date of Admission: 01/22/25 Date of Service: 01/22/25 Chief Complaint: Respiratory Distress. HPI Narrative KRUNAL LEOS, is a 59 M with a past medical history of essential hypertension; on lisinopril, metoprolol and furosemide, hyperlipidemia; on rosuvastatin plus fenofibrate, hypothyroidism; on levothyroxine, morbid (class III) obesity; with BMI of 46.9 this admission, KIANNA; on BiPAP, DM-2; of unknown control on empagliflozin and insulin pump, CAD; s/p NSTEMI (2019); on ECASA and ticagrelor BID followed by Dr. Hanna of [facility], PAF; on apixaban BID, history of IPF; with chronic hypoxic respiratory failure on 8L NC and pirfenidone TID followed by pulmonology at [facility], history of chronic stage I diastolic CHF; with preserved LVEF ~60% with no valvular abnormalities, PFO, pericardial effusion (on echocardiogram done here on September 28, 2024), history of thoracentesis, chronic LE edema, history of TIA's/CVA, history of ~70% Left carotid stenosis, history of Hodgkin's lymphoma; s/p chemotherapy and radiation, history of REEMA; currently not on treatment, OAB; on oxybutynin, BPH; on tamsulosin, depression; on duloxetine and buspirone TID prn anxiety, history of vertigo, GERD; on pantoprazole BID and OA; on oxycodone-acetaminophen TID prn who presents to [facility] ER complaining of respiratory distress. Mr. Leos cannot give a full history at this time as he was immediately started on BiPAP shortly after arrival so the bulk of information was gathered from chart, medical staff and computer. According to the records his informed the ER physician he has been having SOB for the past few days that has progressively worsened in spite of taking his furosemide as prescribed. His SOB was made worse by exertion and laying down but eventually persisted even at rest so his family decided to have him brought in for further evaluation and treatment. He also admits to increased cough and an episode of epistaxis earlier in the day that resolved spontaneously. He denies worsening LE edema, chest pain, palpitations, heart racing, fever, chills, abdominal pain, nausea, vomiting, diarrhea, constipation, dysuria, hematuria, headache or rash. In the ER he was noted to have Leukocytosis of 14.5K with Left-shift of 1% due to suspected Pneumonia complicated by elevated NT pro-BNP II of 4,221 pg/mL present on admission consistent with superimposed AE of chronic diastolic CHF; with preserved LVEF combining to cause clinical evidence of Acute Hypoxic Respiratory Failure requiring BiPAP with ABG 7.46/ PCO2 32.3 mmHg/ PO2 56 mmHg/ HCO3 23 mmol/L @ 91% on BiPAP 12 with FiO2 60% compounded by mildly elevated initial troponin T of 56 ng/L with a corresponding CXR that revealed suspected Pneumonia and AE CHF in the setting of chronic IPF. He was then admitted to the ICU for ongoing care for a stay that is expected to extend beyond 2 midnights. [facility] Medical History (Updated 01/22/25 @ 04:[address] Eduin Umaña, ) Morbid obesity with BMI of 45.0-49.9, adult Current use of residential anticoagulation Chronic respiratory failure with hypoxia Paroxysmal atrial fibrillation Chronic respiratory failure Chronic ulcer of thigh with fat layer exposed Microalbuminuria due to type 2 diabetes mellitus Hypoxemia Rheumatoid factor positive Hyperlipidemia Elevated troponin 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 with hyperglycemia Renal insufficiency Interstitial lung disease Ischemic cerebrovascular accident (CVA) CHF (congestive heart failure) KIANNA (obstructive sleep apnea) Presence of insulin pump CKD (chronic kidney disease) Hypothyroidism Essential (primary) hypertension Diabetes Acute hypoxemic respiratory failure Chronic diastolic CHF (congestive heart failure) Obesity Exertional shortness of breath Iron deficiency anemia due to chronic blood loss Atherosclerotic heart disease of grindstone coronary artery without angina pectoris Mini stroke (~10/01/23) Peripheral vestibulopathy Cranial nerve disorder Polyneuropathy Wears glasses Depression Anxiety Cancer Thyroid disease Insulin dependent diabetes mellitus Arthritis History of renal disease Prostate disease Gastric reflux CPAP (continuous positive airway pressure) dependence Sleep apnea Shortness of breath on exertion History of echocardiogram History of stress test History of CHF (congestive heart failure) Cardiology follow-up encounter History of atrial fibrillation Neuropathy Multiple thyroid nodules Microalbuminuria Thyroid nodule Double vision Non-proliferative diabetic retinopathy KIANNA treated with BiPAP Vertigo Congestive heart failure (CHF) Low testosterone Carotid stenosis High cholesterol Vision loss of right eye Vision loss of left eye Anemia Non-smoker Atrial fibrillation Hypertension Polyneuropathy due to type 2 diabetes mellitus History of non-ST elevation myocardial infarction (NSTEMI) (03/28/20) TIA (transient ischemic attack) (2019) Hodgkin disease GERD (gastroesophageal reflux disease) BPH (benign prostatic hyperplasia) Anxiety and depression Morbid obesity with BMI of 45.0-49.9, adult Nephrolithiasis Diabetes mellitus, type II Home Medications Medication Instructions Recorded Last Taken Type tamsulosin 0.4 mg capsule 0.4 mg PO DAILY prostate 09/08/15 09/26/24 History duloxetine 60 mg capsule,delayed 60 mg PO DAILY depression 04/17/18 09/26/24 History release (Cymbalta) blood-glucose,labor delivery rn,cont #1 ea 07/26/20 Unknown Rx (Dexcom G6 Oracle Database Administrator) blood-glucose transmitter (Dexcom #1 ea 12/29/21 Unknown Rx G6 Transmitter device) infusion set for insulin pump 10/08/22 Unknown History insulin pump controller 10/08/22 Unknown History blood-glucose sensor (Dexcom G6 #1 ea 02/25/23 Unknown Rx Sensor device) insulin regular hum U-500 conc 500 75 unit (0.15 mL) continuous 11/11/23 09/26/24 Rx unit/mL subcutaneous soln (Humulin subcutaneous infusion DAILY blood R U-500 (Concentrated) Insulin) sugar #20 mL metoprolol succinate 100 mg 100 mg PO DAILY heart #90 tabs 03/27/24 09/26/24 Rx tablet,extended release 24 hr lisinopril 40 mg tablet 40 mg PO DAILY blood pressure 04/12/24 09/26/24 History pantoprazole 40 mg tablet,delayed 40 mg PO BID acid reflux #60 tabs 07/22/24 09/26/24 Rx release (Protonix) empagliflozin 25 mg tablet 25 mg PO DAILY diabetes #30 tabs 08/12/24 09/26/24 Rx (Jardiance) apixaban 5 mg tablet (Eliquis) 5 mg PO BID blood thinner #180 tabs 08/31/24 09/26/24 Rx fenofibrate 54 mg tablet 134 mg PO QDAY 10/27/24 Unknown History albuterol sulfate 2.5 mg/3 mL 2.5 mg inhalation Q4H PRN 11/25/24 Unknown History (0.083 %) solution for nebulization shortness of breath or wheezing levothyroxine 125 mcg tablet 125 mcg PO QDAY 11/25/24 Unknown History pirfenidone 267 mg tablet 801 mg PO TID breathing 11/25/24 Unknown History acetaminophen 500 mg tablet 1,000 mg (2 x 500 mg) PO Q8 PRN 11/28/24 Unknown Rx pain #0 tabs oxycodone-acetaminophen 5 mg-325 1 tab PO TID PRN PRN pain 12/17/24 Unknown History mg tablet rosuvastatin 40 mg tablet 40 mg PO DAILY 12/17/24 Unknown History sennosides 8.6 mg-docusate sodium 1 tab PO DAILY constipation 12/17/24 Unknown History 50 mg tablet (Senexon-S) ticagrelor 90 mg tablet 90 mg PO BID 12/17/24 Unknown History aspirin 81 mg chewable tablet 324 mg PO BREAKFAST 12/23/24 Unknown History furosemide 40 mg tablet (Lasix) 80 mg PO DAILY diuretic 12/23/24 Unknown History atorvastatin 80 mg tablet (Lipitor) 80 mg PO QHS 01/12/25 Unknown History buspirone 10 mg tablet 10 mg PO TID Anxiety 01/12/25 Unknown History duloxetine 40 mg capsule,delayed 40 mg PO QDAY 01/12/25 Unknown History release oxybutynin chloride 5 mg tablet 5 mg PO BID PRN bladder spasms 01/12/25 Unknown History alprazolam 0.5 mg tablet 0.5 mg PO TID PRN anxiety 01/22/25 Unknown History furosemide 40 mg tablet (Lasix) 40 mg PO 1500 PRN edema 01/22/25 Unknown History Allergy/AdvReac Type Severity Reaction Status Date / Time metoclopramide HCl (From Allergy Severe Anaphylaxis Verified 01/22/25 02:00 Reglan) Family History Brother Heart disease Mother CVA (cerebral vascular accident) Hypertension Rheumatoid arthritis Father Diabetes Other Alcohol abuse ulcer disease Surgical History History of cardiac catheterization History of lymph node excision History of left heart catheterization (2009) Hx of nephrolithotomy with removal of calculi History of thoracentesis (2015) Social History household members: spouse and none pets and animals: Yes Smoking Status: Never smoker Electronic Cigarette Use: not used second hand exposure: No alcohol intake: never substance use type: does not use what type of physical activity do you participate in: none ROS ROS Narrative Full ROS was not possible due to patient being in respiratory distress on BiPAP. Vital Signs Vital Signs Vital Signs: 01/22/25 02:00 01/22/25 02:02 01/22/25 02:16 Temperature 98.3 F Temperature Source Temporal Pulse Rate 113 H 115 H Respiratory Rate 26 H 31 H Respiratory Effort Respiratory Depth Respiratory Pattern Tachypnea Blood Pressure 142/84 H Blood Pressure Mean 103 Pulse Ox 98 98 Oxygen Delivery Method Bi-pap Fraction of Inspired Oxygen (FIO2) 100 01/22/25 02:25 01/22/25 02:30 01/22/25 02:39 Temperature Temperature Source Pulse Rate 107 H 108 H Respiratory Rate 28 H 26 H Respiratory Effort Short of Breath Respiratory Depth Shallow Respiratory Pattern Tachypnea Tachypnea Blood Pressure 124/61 H Blood Pressure Mean 82 Pulse Ox 92 Oxygen Delivery Method Bi-pap Bi-pap Fraction of Inspired Oxygen (FIO2) 50 50 01/22/25 03:00 01/22/25 03:30 01/22/25 03:43 Temperature 98.2 F Temperature Source Pulse Rate 106 H 104 H 103 H Respiratory Rate 26 H 22 H 28 H Respiratory Effort Respiratory Depth Respiratory Pattern Blood Pressure 124/63 H 129/86 H 129/86 H Blood Pressure Mean 83 100 100 Pulse Ox 92 93 92 Oxygen Delivery Method Bi-pap Bi-pap Fraction of Inspired Oxygen (FIO2) 50 50 Weight Weight: 317 lb 7.45 oz Body Mass Index (BMI) 46.8 Results Medical Records Data Attestation: I reviewed the patient's medical records Lab / Micro Data Attestation: I reviewed the patient's lab results. 01/22/25 02:22 01/22/25 02:22 Labs: Laboratory Results - last 24 hr 01/22/25 02:22: WBC 14.1 H, RBC 3.13 L, Hgb 8.0 L, Hct 26.5 L, MCV 84.7, MCH 25.6 L, MCHC 30.2 L, RDW Std Deviation 59.4 H, RDW Coeff of Gavi 19.6 H, Plt Count 251, MPV 9.3, Immature Gran % (Auto) 1.000 H, Neut % (Auto) 80.0 H, Lymph % (Auto) 8.0 L, Churchill % (Auto) 9.9, Eos % (Auto) 0.6, Baso % (Auto) 0.5, Absolute Neuts (auto) 11.3 H, Absolute Lymphs (auto) 1.13, Nucleated RBC % 0.2, Sodium 137, Potassium 3.5, Chloride 100, Carbon Dioxide 21.2, Anion Gap 16 H, BUN 15, Creatinine 0.96, Estim Creat Clear Calc 114.32, Est GFR (MDRD) Non-Af 90, BUN/Creatinine Ratio 15.8, Glucose 132 H, Calcium 8.8, Troponin T High Sens 56 H*, NT pro BNP II 4221 H ABG Data ABG results: ABG 01/22/25 02:20 Specimen Type ART Sample Site R Radial pH 7.46 H Bicarbonate Actual 23.0 Total CO2 24 Base Excess -1 O2 Saturation 91 L O2 % 60.0 ABG pCO2 32.3 L ABG pO2 56 L Brennon Test Positive Respiration Rate 12 O2 Delivery Device BiPAP Vent Mode Not entered Clinical Comments 16. 10. 60% Rhythm Strip Rhythm Strip: Sinus Tach Rate: 111 Ectopy: None Imaging [facility] Imaging Services [address] [place], [place] [id number] Chest 1 View (Portable) MR#: [id number] Acct: [id number] Name: KRUNAL LEOS Rep #: [id number] : 1965 M 59 From: Laurie Felder MD PCP: Dr. Brandt Winter MD Status: ADM IN Study: Chest 1 View (Portable) Date of Exam: 01/22/25 Exam# [id number] Ordering Dr: Mario Cook MD PROCEDURE: CHEST 1 VIEW (PORTABLE) 01/22/2025 REASON FOR EXAM: SOB TECHNIQUE: Frontal view of the chest. COMPARISON: CT scan of the chest on 01/22/2025. FINDINGS: Unchanged chronic interstitial pulmonary thickening. Unchanged bilateral widespread pulmonary infiltrates, possibly presenting alveolitis from active interstitial lung disease and/or superimposed pneumonia. There is no demonstrated pleural abnormality. Enlarged cardiac silhouette. Normal mediastinum and darrel. Normal visualized pulmonary arteries. Atheromatous plaques of the visualized aortic arch and descending thoracic aorta. Diffuse spondylosis of the visualized thoracic spine. Normal visualized ribs, clavicles. Degenerative joint disease. There is no demonstrated abnormality of the visualized soft tissue structures of the upper abdomen. RAD/Chest 1 View (Portable) IMPRESSION: Unchanged chronic interstitial pulmonary thickening. Unchanged bilateral widespread pulmonary infiltrates, possibly presenting alveolitis from active interstitial lung disease and/or superimposed pneumonia. There is no demonstrated pleural abnormality. Enlarged cardiac silhouette. Reading Location: [place] [address] CC: Dr. Mario Cook MD; Dr. Brandt Winter MD ~ Coloring Room Worker: Signed [facility] Imaging Services [address] [place] [id number] Chest without Contrast MR#: [id number] Acct: [id number] Name: KRUNAL LEOS Rep #: [id number] : 1965 M 59 From: Laurie Felder MD PCP: Dr. Brandt Winter MD Status: ADM IN Study: Chest without Contrast Date of Exam: 01/22/25 Exam# [id number] Ordering Dr: Eduin Umaña DO PROCEDURE: CHEST WITHOUT CONTRAST 01/22/2025 REASON FOR EXAM: PNA, AE CHF AND IPF. TECHNIQUE: Chest CT without contrast. Coronal and Sagittal reconstruction series were provided. One or more dose reduction techniques were used (e.g., Automated exposure control, adjustment of the mA and/or kV according to patient size, use of iterative reconstruction technique RADIATION DOSE SUMMARY: CTDI Vol 8.61 mGy DLP :291.94 mGycm COMPARISON: 26-Nov-2024 CR FINDINGS: Diffuse bilateral pulmonary interstitial and bronchial wall thickening with patchy ground glass veiling, subpleural reticular densities and atelectatic plates. No obvious pulmonary masses or consolidations. Trachea and main stem bronchi are unremarkable. Prominent mediastinal lymphadenopathy. No pleural or pericardial collections. Cardiomegaly. Aortic atheromatous calcifications. Thoracic spondylodegenerative changes. Exaggerated thoracic kyphosis. No obvious osseous lytic/sclerotic lesion is seen. The scanned upper abdominal show gall bladder layering calculi with left renal hypodense and isodense cysts. Advise sonography correlation. CT/Chest without Contrast IMPRESSION: Bilateral pulmonary interstitial lung changes with patchy ground glass veiling, thick atelectatic plates, possibly interstitial lung disease. Advise clinical correlation. No obvious pulmonary masses or consolidations. Cardiomegaly. [facility] CC: Dr. Brandt Winter MD; Dr. Eduin Umaña, DO ~ Coloring Room Worker: Signed Assessment & Plan Assessment/Plan (1) Pneumonia: QUALIFIERS: Laterality: bilateral Lung location: unspecified part of lung Pneumonia type: due to unspecified organism Qualified Code(s): J18.9 - Pneumonia, unspecified organism (2) Leukocytosis: QUALIFIERS: Leukocytosis type: bandemia Qualified Code(s): D72.825 - Bandemia (3) CHF exacerbation: QUALIFIERS: Heart failure type: diastolic Qualified Code(s): I50.33 - Acute on chronic diastolic (congestive) heart failure (4) Elevated troponin: (5) Acute on chronic hypoxic respiratory failure: (6) Morbid obesity with BMI of 45.0-49.9, adult: (7) KIANNA (obstructive sleep apnea): (8) Paroxysmal atrial fibrillation: (9) Current use of residential anticoagulation: (10) Paroxysmal atrial fibrillation: PLAN: Plan 1. Leukocytosis of 14.5K with Left-shift of 1% due to suspected Pneumonia in the setting of previously diagnosed IPF; with chronic hypoxic respiratory failure on 8L NC and pirfenidone TID followed by pulmonology at [facility] - Admit to ICU. Continue BiPAP, give IV methylprednisolone and initiate treatment with IV vancomycin and IV piperacillin-tazobactam. Check urinary antigens to Streptococcus pneumonia and Legionella. Check viral respiratory panel. Give pantoprazole 40 mg IV daily for GI prophylaxis. Give ondansetron IV prn nausea and vomiting. Give acetaminophen prn for [id number] (level 1-5/10) pain or fever. Give morphine IV prn for severe (level 6-10/10) pain. Finally, we will consult pulmonology to see this patient in the AM on-rounds for further recommendations with help appreciated in advance. 2. Elevated NT pro-BNP II of 4,221 pg/mL present on admission consistent with superimposed AE of chronic diastolic CHF; with preserved LVEF with in addition to Elevated Troponin T suspected to be due to acute cardiac strain complicating #1 - Continue IV furosemide begun in the ER and check CXR daily to monitor response to treatment. Serialize troponin. Finally, due to patient's medical complexity and apparent fragility we will consult [facility] to see this patient on-rounds in the AM for further recommendations with help appreciated in advance. 3. Acute Hypoxic Respiratory Failure requiring BiPAP with ABG 7.46/ PCO2 32.3 mmHg/ PO2 56 mmHg/ HCO3 23 mmol/L @ 91% on BiPAP 12 with FiO2 60% attributable to #1 & #2 - Wean BiPAP as tolerated. 4. Morbid (class III) obesity; with BMI of 46.9 this admission plus KIANNA; on BiPAP adding to the burden of disease outlined from #1 - #3 - Weight loss will be recommended. Check TSH. This complicates his case and may hamper recovery. 5. PAF; on apixaban BID adding to the medical complexity of #1 - #4 - Maintain apixaban as before. 6. DM-2; of unknown control on empagliflozin and insulin pump - Keep NPO for now and resume insulin pump. Check FSBS q. 6 hours. Recent HgbA1c checked 7. Essential hypertension; on lisinopril, metoprolol and furosemide - Maintain home regimen except furosemide has been converted to IV as outlined in #2. 8. Hyperlipidemia; on rosuvastatin plus fenofibrate - Continue present treatment and check Lipid Profile. 9. Hypothyroidism; on levothyroxine - Resume levothyroxine as before and check TSH. 10. CAD; s/p NSTEMI (2019); on ECASA and ticagrelor BID followed by Dr. Hanna of [facility] - Continue current therapy. 11. History of thoracentesis - Noted with CT of chest pending to quantify pleural effusions. 12. Chronic LE edema - Stable. 13. History of TIA's/CVA - Noted. 14. History of ~70% Left carotid stenosis - Noted. 15. History of Hodgkin's lymphoma; s/p chemotherapy and radiation - Apparently stable. 16. History of REEMA; currently not on treatment - Anemia with low-normal hemoglobin of 8 g/dL with MCV of 84.7 fL present on admission. Hemoccult stools and check iron studies/ferritin. 17. OAB; on oxybutynin - Continue oxybutynin as previous. 18. BPH; on tamsulosin - Resume tamsulosin. 19. Depression; on duloxetine and buspirone TID prn anxiety - Maintain home regimen. 20. History of vertigo - Give meclizine prn if vertigo recurs. 21. GERD; on pantoprazole BID - Patient switched to IV pantoprazole as outlined in #1. 22. OA; on oxycodone-acetaminophen TID prn - We will follow pain regimen and scales outlined in #1. 23. DVT/GI prophylaxis - Patient already on apixaban for #5 which will be continued. Pantoprazole 40 mg IV daily as outlined in #1. Total time: Approximately (but not less than) 75 minutes. Charges/Coding Visit Charges Inpatient E&M: 57399 Init Hosp L3
[2025-01-22 04:56] LABS: Troponin T High Sens 2 HR 69 ng/L (<=22)
--- OUTSIDE RECORDS SUMMARY | 2025-01-22 05:02 | XMS RPT_ITS | CCD ---
Author Organization [facility] Care Team Providers Care Stonecutter Hand Name Role Phone Radha Khan Primary Care [...] Provider Dr. Jonathon Salas Referring Provider Roof SENIOR FINANCE MANAGER, PITO Jackson Attending Provider Dr. Radha Khan Primary Care Provider Dr. Radha Khan Referring Provider PITO Gerardo Attending Provider Roof SENIOR FINANCE MANAGER, SAV-Surinder Jackson Attending Provider [place]le[place] SENIOR FINANCE MANAGER, SAV-Surinder Childress Attending Provider Dr. Radha Khan [...] Radha Khan Primary Care Provider Dr. Radha Khna Referring Provider PITO Gerardo Attending Provider Dr. Francois Valiente Referring Provider Dr. Sumanth Hanna Attending Provider Dr. Radha Khan Primary Care Provider Dr. Radha Khan Referring Provider PITO Gerardo Attending Provider Dr. Karol Rushing Attending Provider Dr. Radha Khan Primary Care Provider Dr. Radha Khan Referring Provider PITO Gerardo Attending Provider Dr. Karol Rushing Attending Provider [facility] SENIOR FINANCE MANAGERPITO Attending Provider Dr. Toni Vann Attending Provider [...] Care Provider Dr. Radha Khan Referring Provider [facility] SENIOR FINANCE MANAGERPITO Attending Provider Dr. Karol Rushing Attending Provider Dr. Toni Vann Attending Provider Dr. Karol Rushing Other Provider TUNDE Zimmerman-Surinder Moser Referring Provider RON Zimmerman Other Provider Dr. Francois Valiente Attending Provider Dr. Francois Valiente Referring Provider SAV Gerardo-C Jessica Attending Provider Dr. Radha Khan Primary Care Provider Dr. Radha Khan Referring Provider [facility] SENIOR FINANCE MANAGER, SENIOR FINANCE MANAGER-C Oren Jackson Attending Provider Dr. Ochoa Dobbs Attending Provider BILL MCRAE, DR GARCIA Primary Care Physician Radha Khan Primary Care Provider CHITRA CORPORATE FINANCIAL ANALYST-MANUFACTURING PLANT CONTROLLERCHITO Referring Unavailable CHITRA CORPORATE FINANCIAL ANALYST-MANUFACTURING PLANT CONTROLLER, CHITO Nuñez Attending Unavailable CHITRA DUKESN-MANUFACTURING PLANT CONTROLLER, CHITO Nuñez Admitting Unavailable ERNESTO MCRAE, [facility] Consulting Unavailable DR RADHA KHAN MD Primary Care Unavailable Juventino MCRAE, Suzy Unavailable Unavailable Primary Care Provider Unavailstuart Khan MD, Radha Melendez Primary Care Provider [phone] NEREIDA, MAROUN Referring Unavailable NEREIDA, MAROUN Referring [...] MCRAE, Dr. Eduin Duarte Other Provider [phone] Aneta MCRAE, Dr. Bermudez Other Provider Payton MCRAE, Dr. Taylor Other Provider [phone] Magdaleno MCRAE, Dr. Arnold Other Provider [phone] Robert MCRAE, Dr. Lopez Other Provider Javy MCRAE, Dr. Perdomo Other Provider [phone] Yvan MCRAE, Dr. Adamson Other Provider Jose MCRAE, Dr. Myles Other Provider Harriet MCRAE, Dr. Yeager Other Provider Unavailabl adam Valentine MD, Dr. Amin Other Provider Gavi MCRAE, Dr. Gilliam Other Provider [phone] Sim MCRAE, Dr. Menchaca Other Provider Felice PUTNAM, Dr. Lugo Other Provider [phone] Bernice MCRAE, Dr. Huber Other Provider [phone] Kae MCRAE, Dr. Gary Other Provider [phone] Jose PUTNAM, Dr. Desir Other Provider Hiro MCRAE, Dr. Reyes Other Provider Horacio MCRAE, Dr. Hernandez Other Provider Ryder MCRAE, Dr. Norwood Other Provider [phone] Dr. Fran Rodriguez DO Attending Provider Bill MCRAE, Dr. Radha Mcmahon Referring Provider Mari SENIOR FINANCE MANAGER-CJessica Attending Provider Bob SENIOR FINANCE MANAGER-C, Chen Nuñez Attending Provider Dr. Radha Khan [...] Dr. Ochoa Johnson DO Attending Provider Dr. Cookei Bell MD Attending Provider Nancy MCRAE, Dr. Muñoz Attending Provider Dr. Toni Vann MD Referring Provider [phone] Dr. Sumanth Hanna MD Attending Provider Dilia MCRAE, Dr. Packer Attending Provider Tamika MCRAE, Dr. Veras Attending Provider Tamika MCRAE, Dr. Veras Referring Provider Colton PA, Lydia M Attending Provider Lydia Jiménez Referring Provider Bob SENIOR FINANCE MANAGER-C, Chen M Referring Provider Sumanth Hanna MD [...] Dr. Sumanth Hanna MD Attending Provider Bob SENIOR FINANCE MANAGER-CChen Attending Provider Bob SENIOR FINANCE MANAGER-CChen M Referring Provider Dr. Toni Vann MD Attending Provider [phone] Dr. Toni Vann MD Referring Provider Sumanth Hanna MD Attending Provider Unavailable Brandt Winter MD Primary Care Provider Erik PA Khadar Attending Provider Erik GRIFFITHS Khadar Referring Provider Mari SENIOR FINANCE MANAGER-CJessica Attending Provider Norma MCRAE, Brandt Referring Provider Bill MCRAE, Dr. Radha Mcmahon Primary Care Provider Bill MCRAE, Dr. Radha Mcmahon Referring Provider Sadi MCRAE, Dr. Ortiz Referring Provider Sadi MCRAE, Dr. Ortiz Emergency Provider Yash MCRAE, Dr. Hagen Admit Provider Yash MCRAE, Dr. Hagen Attending Provider Bill MCRAE, Dr. Radha Mcmahon Primary Care Provider Bob SENIOR FINANCE MANAGER-C, Chen Nuñez Attending Provider Nancy MCRAE, Dr. Muñoz Attending Provider Nancy MCRAE, Dr. Muñoz Referring Provider Bill MCRAE, Dr. Radha Mcmahon Referring Provider Mari SENIOR FINANCE MANAGER-CJessica Attending Provider Norma MCRAE, Brandt Referring Provider Sadi MCRAE, Dr. Ortiz Referring Provider Sadi MCRAE, Dr. Ortiz Emergency Provider Yash MCRAE, Dr. Hagen Admit Provider Yash MCRAE, Dr. Hagen Attending Provider Dr. Xiao Berrios MD Other Provider Edmund Dey MD Other Provider Unavailable Deb MCRAE, Dr. Foster Other Provider [phone] Amy Dumont MD Other Provider Unavailable [...] Dr. Guillen Other Provider Unavailable Osvaldo MCRAE, [facility] Other Provider Unavailable Dr. Karina Benítez [...] Dr. Toni Vann MD Other Provider Mari SENIOR FINANCE MANAGER-C, Jessica Other Provider Colton GRIFFITHS, Lydia Nuñez Other Provider Dr. Karina Benítez DO Referring Provider Lydia Jiménez Attending Provider Esmer PUTANM, Dr. Collins Referring Provider Tamika MCARE, Dr. Veras Attending Provider Dr. Rito Lundberg [...] Dr. Hagen Attending Physician Yash MCRAE, Dr. Haegn Nurse Practitioner Yissel MCRAE, Edmund Nurse Practitioner Unavailable Deb MCRAE, Dr. Foster Nurse Practitioner Julia MCRAE, Amy Nurse Practitioner Unavailab francisco Velasco DO, Dr. Sims Nurse Practitioner Loy MCRAE, Dr. Ayala Nurse Practitioner [phone] Yani MCRAE, Dr. Mondragon Nurse Practitioner Wm [...] Guillen Nurse Practitioner Unavailabl adam Riley MD, [facility] Nurse Practitioner Unavailstuart Benítez DO, Dr. Collins Attending Physician Dr. Karina Benítez DO Nurse Practitioner Karma MCRAE, Dr. Smith Attending Physician Brandt Winter MD Attending Physician Nancy MCRAE, Dr. Muñoz Nurse Practitioner Mari SENIOR FINANCE MANAGER-C, Jessica Nurse Practitioner Lydia Jiménez Nurse Practitioner Bill MCRAE, Dr. Radha Mcmahon Referring Provider Lydia Jiménez Attending Physician Tamika MCRAE, Dr. Veras Attending Physician Bob SENIOR FINANCE MANAGER-C, Chen Nuñez Attending Physician Juan MCRAE, Dr. [...] Jolliff, Radha S Primary Care Unavailable Yoni SENIOR FINANCE MANAGER, Fior Referring Unavailable Yoni SENIOR FINANCE MANAGER, Fior Attending Unavailable Jolliff, Radha S Referring [...] Berrios Admitting Unavailable Edmund Dey Consulting Unavailable Avitia, Angel Referring Unavailable Adeli, Amir [...] Care Unavailable Fran Rodriguez Attending Unavailable Vallejo SENIOR FINANCE MANAGER, Fior Referring Unavailable [place]lejo SENIOR FINANCE MANAGER, Fior Consulting Unavailable Jolliff, Radha S Primary Care Unavailable Sumanth Hanna Attending Unavailable Jolliff, Radha S Primary Care Unavailable Fran Rodriguez Attending Unavailable [place]le[place] SENIOR FINANCE MANAGER, Fior Referring Unavailable Norma, Chalon Primary Care Unavailable Sarah Parada Attending Unavailable Jolliff, Radha S Primary Care Unavailable Jolliff, Radha S Referring Unavailable Ochoa Dobbs Attending Unavailable Vernon, Edmund Consulting Unavailable Norma, Chalon Primary Care [...] Consulting Unavailable Palak Garvin Consulting Unavailable Ridjuan, Michelel Consulting Unavailable Zajessica, Mhd Ra Consulting UnavailLavelle Gillespie Consulting Unavailable Heart, Ramfroylan Consulting Unavailable Darci, Abrahan Consulting Unavailable Mindy Benítez Consulting Unavailable Ryan Riley Consulting Unavailable WhiteCookie L Consulting Unavailable Jolliff, Radha S Primary Care Unavailable Chen Rojas Attending Unavailable Chen Rojas Referring Unavailable Jolliff, Radha S Primary Care Unavailable Yoni SENIOR FINANCE MANAGER, Fior Referring Unavailable Yoni SENIOR FINANCE MANAGER, Fior Attending Unavailable Norma, Chalon Primary Care [...] Nikolai Consulting Unavailable DheKassandra espinozaParish Consulting Unavailable Ceicle Queen Consulting Unavailable Abdirahman Pal Consulting Unavailable [...] Unavailable Jolliff, Radha S Primary Care Unavailable JacquesMedardoByrdstown Attending Unavailable Allergies Allergy Classification Reported Allergen(s) Allergy Type Date of Onset Reaction(s) Facility DOPamine Antagonists (1 source) Metoclopramide; Translations: [metoclopramide] Drug Allergy [facility] (20 sources) Metoclopramide Drug Allergy 6 Shortness of Breath [facility] (20 sources) Metoclopramide; Translations: [METOCLOPRAMIDE] Drug Allergy 6 Anaphylaxis, Shortness of breath [facility] (1 source) Metoclopramide Drug Allergy 5 [facility] Repository Medications Current Medications Medication Drug Class(es) [...] 24 hrs Blood-Glucose Meter,Continuo us (Dexcom G6 On Site Nurse) misc (20 sources) Start: 07-26-2020 Blood-Glucose Meter,Continuous (Dexcom G6 On Site Nurse) misc Active 0 .ROUTE .MEDSUPPLY July 26, 2020 12:36pm As directed Start: 07-26-2020 Blood-Glucose Meter,Continuous (Dexcom G6 On Site Nurse) misc Active 0 .ROUTE .MEDSUPPLY July 25, 2020 11:00pm As directed Start: 07-26-2020 Blood-Glucose Meter,Continuous (Dexcom G6 On Site Nurse) misc Active 0 .ROUTE .MEDSUPPLY July 26, 2020 12:00am As directed Blood-Glucose Sensor (Dexcom G6 Sensor) device (20 sources) Start: 02-25-2023 Blood-Glucose Sensor (Dexcom G6 Sensor) device Active 0 .ROUTE .MEDSUPPLY 1 February 25, 2023 12:46pm Diabetes mellitus 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 with hyperglycemia intermodal customer service (current) use of insulin dm As directed [...] mellitus 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 with hyperglycemia intermodal customer service (current) use of insulin As directed Start: [...] mellitus 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 with hyperglycemia retirement (current) use of insulin As directed Start: [...] mellitus 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 with hyperglycemia retirement (current) use of insulin As directed Start: [...] 12:00am June 01, 2021 3:34pm As directed Blood-Glucose,On Site Nurse,Cont (Dexcom G6 On Site Nurse) misc (3 sources) Start: 07-26-2020 Blood-Glucose,On Site Nurse,Cont (Dexcom G6 On Site Nurse) misc Active 0 .ROUTE .MEDSUPPLY 1 July 26, 2020 12:00am dm As directed Start: 07-26-2020 Blood-Glucose, On Site Nurse,Cont (Dexcom G6 On Site Nurse) misc Active 0 .ROUTE .MEDSUPPLY 1 July [...] Ordered docusate sodium 50 mg / sennosides, fpc 8.6 mg oral tablet (6 sources) Start: 12-17-2024 sennosides-doc usate sodium (Daysi-Colace) 8.6-50 mg tablet docusate sodium 50 mg / sennosides, fpc 8.6 mg oral tablet (3 sources) Start: 12-17-2024 12/17/2024 Active doxycycline monohydrate 100 mg oral tablet (20 sources) Tetracycline- class Drug Start: 11-28-2024 End: 12-17-2024 take 1 tablet by mouth every twelve hours doxycycline (Adoxa) 100 mg tablet Take 1 tablet (100 mg) by mouth every 12 hours. 11/28/2024 Active Start: 06-10-2023 take 1 capsule by [facility] twice daily doxycycline (Vibramycin) 100 MG capsule [...] mellitus 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 with hyperglycemia intermodal customer service (current) use of insulin Start: 07-22-2020 End: [...] Agonist Start: 02-14-2023 End: 05-06-2024 HYDROcodone-acetami nophen ([place]) 5-325 MG tablet Take 1 tablet by [...] 07-18-2021 take 2.5 mg by mouth once zahc y Amlodipine Active 2.5 MG PO DAILY [...] extended release oral tablet (20 sources) Uncompetitive X-crexzl-I-aspartate Receptor Antagonist, Sigma-1 Agonist Start: 04-24-2024 End: [...] every week ergocalciferol (Vitamin D2) 1.25 MG (77102 UT) capsule Take 1 capsule by mouth [...] mellitus 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 with hyperglycemia intermodal customer service (current) use of insulin Start: 08-01-2022 End: [...] aftercare (20 sources) Drug therapy finding; Translations: [retirement (current) use of anticoagulants] 03-05-2024 Episodic Other aftercare (20 sources) Long-term current use of anticoagulant; Translations: [retirement (current) use of anticoagulants] 11-24-2023 Episodic Other aftercare (1 source) Taking high risk medication; Translations: [Other group home (current) drug therapy] 01-15-2025 Episodic Other aftercare (2 sources) Other termite treater helper (current) drug therapy; Translations: [Other termite treater helper (current) drug therapy] Onset: Episodic Other aftercare (2 sources) retirement (current) use of anticoagulants; Translations: [intermodal customer service (current) use of anticoagulants] Onset: Episodic Other [...] Translations: [Body mass index (BMI) 40.0-44.9, adult ([facility])] Onset: 5 Chronic Other nutritional; endocrine; and [...] 05-30-2007 05-30-2007 Episodic Other aftercare (1 source) retirement (current) use of insulin; Translations: [retirement (current) use of insulin] Onset: 09-16-2024 Episodic [...] Range Facility Office Visiton 01-18-2025 Follow-up visit [id number] Krunal Leos 1965 M Date Provider Department Center 01/18/2025 62312-[facility]LL[facility]LDOZIEL [facility] NRO None No family history on file Level of Service:79827 ND OFFICE/OUTPATIENT ESTABLISHED MOD MDM 30 MIN Reason for Visit and Comments: Follow-up [363271] [facility] Progress Noteon 01-18-2025 Progress Note History of Present Illness: 59 yo man here for stroke fu and cerebrovascular stenosis. He is present for interview with and daughter. Per my last note (12/2023): He originally presented 09/2023 for left hemiparesis and was transferred to [facility] from [facility]. He was found to have [...] episode of left hemiparesis. He went to [facility] and was found to have increased stroke burden of the right hemisphere. Vascular surgery was consulted and no surgical procedure was recommended. He had a 3rd event of left hemiparesis the following week and a CT was done at [facility]. At that time clopidogrel was added (in addition to ASA and Eliquis). The patient returned to normal and was discharged from the ED to home. 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 He is a nonsmoker. 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 He has since been restarted on the medications. He has been diagnosed to have idiopathic pulmonary fibrosis, and is now on 4L oxygen at home. He also has weekly events of left face droop and confusion that has prompted trips to [facility] and been diagnosed as "TIA". These [...] 0 Continuous Glucose Sensor (Dexcom G6 Sensor) [facility], Dexcom G6 Sensor Mis, USE DIRECTED FOR [...] Rfl: 0 ergocalciferol (Vitamin D2) 1.25 MG (81386 UT) capsule, Take 1 capsule by mouth [...] in the (more content not included)... Normal [facility] Celiac AB,Comprehensiveon ANTIGLIADIN IGA 7 units Normal 0-19 [facility] Comment on above: Order Comment: Reaso n for Exam: ANEMIA Result Comment: Nega tive 0 - 19 Weak Positive 20 - 30 Moderate to Strong Positive >30 Performed By: #### L 3100.1350, L101.9900, L100.0100, L506.0200, L504.2610, L503.6550, L3100.1960, L501.2300, L3410.2350, L100.9950 ####[facility] [address] [place], [address] ANTIGLIADIN IGG 2 units Normal 0-19 [facility] Comment on above: Order Comment: Reaso n for Exam: ANEMIA Result Comment: Nega tive 0 - 19 Weak Positive 20 - 30 Moderate to Strong Positive >30 Performed By: #### L 3100.1350, L101.9900, L100.0100, L506.0200, L504.2610, L503.6550, L3100.1960, L501.2300, L3410.2350, L100.9950 ####[facility] [address] [place], [address] ENDOMYSIAL IGA Negative Normal Negative [facility] Comment on above: Order Comment: Reaso n for Exam: ANEMIA Performed By: #### L 3100.1350, L101.9900, L100.0100, L506.0200, L504.2610, L503.6550, L3100.1960, L501.2300, L3410.2350, L100.9950 ####[facility] [address] [place], [place], [id number] IMMUNOGLOB A QN 337 mg/dL Normal 61-437 [facility] Comment on above: Order Comment: Reaso n for Exam: ANEMIA Performed By: #### L 3100.1350, L101.9900, L100.0100, L506.0200, L504.2610, L503.6550, L3100.1960, L501.2300, L3410.2350, L100.9950 ####[facility] [address] [place], [address] tTG IGA <2 Normal 0-3 [facility] Comment on above: Order Comment: Reaso n [...] L506.0200, L504.2610, L503.6550, L3100.1960, L501.2300, L3410.2350, L100.9950 ####[facility] [address] [place], [address] tTG IGG 3 U/mL Normal 0-5 [facility] Comment on above: Order Comment: Reaso n for Exam: ANEMIA Result Comment: Nega tive 0 - 5 Weak Positive 6 - 9 Positive >9 Performed By: #### L 3100.1350, L101.9900, L100.0100, L506.0200, L504.2610, L503.6550, L3100.1960, L501.2300, L3410.2350, L100.9950 ####[facility] [address] [place], [place], [phone] Erythropoietinon 01-13-2025 ERYTHROPOIETIN 65.7 mIU/mL High 2.6-18.5 [facility] Comment on above: Order Comment: Marcoo n for Exam: ANEMIA Result Comment: Hmizate.mael DxI 800 Immunoassay SystemValues obtained with different assay methods or kits cannotbe used interchangeably. Results cannot be interpreted asabsolute evidence of the presence or absence of malignantdisease. Performed By: #### L 3100.1350, L101.9900, L100.0100, L506.0200, L504.2610, L503.6550, L3100.1960, L501.2300, L3410.2350, L100.9950 ####[facility] [address] [place], [address] H pylori Breath Teston 01-13 H.Pylori Breath Negative Normal Negative [facility] Comment on above: Order Comment: Kb n for Exam: ANEMIA Result Comment: Perf ormed at: [facility] [address] [id number] Director: Chance Morales PhD, Phone: [phone] Performed By: #### L 3100.1350, L101.9900, L100.0100, L506.0200, L504.2610, L503.6550, L3100.1960, L501.2300, L3410.2350, L100.9950 ####[facility] [address] [place], [address] CBC W/Diff, Automatedon 12-30 Absolute Lymph 1.42 X10 3/uL Normal 0.83-4.51 [facility] Comment on above: Performed By: #### L 3100.1350, L101.9900, L100.0100, L506.0200, L504.2610, L503.6550, L3100.1960, L501.2300, L3410.2350, L100.9950 ####[facility] [address] [place], [place], [phone](886) Absolute Neut 8.3 X10 3/uL High 2.0-7.7 [facility] Comment on above: Performed By: #### L 3100.1350, L101.9900, L100.0100, L506.0200, L504.2610, L503.6550, L3100.1960, L501.2300, L3410.2350, L100.9950 ####[facility] [address] [place], [place], [phone](755) Basophils/100 WBC (Bld) 0.6 % Normal 0-1 [facility] Comment on above: Performed By: #### L 3100.1350, L101.9900, L100.0100, L506.0200, L504.2610, L503.6550, L3100.1960, L501.2300, L3410.2350, L100.9950 ####[facility] [address] [place], [place], [phone] Eosinophils/100 WBC (Bld) 3.4 % Normal 0-5 [facility] Comment on above: Performed By: #### L 3100.1350, L101.9900, L100.0100, L506.0200, L504.2610, L503.6550, L3100.1960, L501.2300, L3410.2350, L100.9950 ####[facility] [address] [place], [place], [phone]) Erythrocyte distribution width (RBC) [Ratio] 20.0 % High 11.6-14.6 [facility] Comment on above: Performed By: #### L 3100.1350, L101.9900, L100.0100, L506.0200, L504.2610, L503.6550, L3100.1960, L501.2300, L3410.2350, L100.9950 ####[facility] [address] [place], [address] Hematocrit (Bld) [Volume fraction] 30.6 % Low 40-54 [facility] Comment on above: Performed By: #### L 3100.1350, L101.9900, L100.0100, L506.0200, L504.2610, L503.6550, L3100.1960, L501.2300, L3410.2350, L100.9950 ####[facility] [address], [address] Hemoglobin (Bld) [Mass/Vol] 9.1 g/dL Low 13.0-16.5 [facility] Comment on above: Performed By: #### L 3100.1350, L101.9900, L100.0100, L506.0200, L504.2610, L503.6550, L3100.1960, L501.2300, L3410.2350, L100.9950 ####[facility] [address] [facility] [place], [address] IG% 0.800 Normal 0.0-0.9 [facility] Comment on above: Result Comment: IG% - Immature Granulocytes (promyelocytes, myelocytes andmetamyelocytes) > 1% indicates that a LEFT SHIFT is Present. Performed By: #### L 3100.1350, L101.9900, L100.0100, L506.0200, L504.2610, L503.6550, L3100.1960, L501.2300, L3410.2350, L100.9950 ####[facility] [address] [place], [address] Lymphocytes/100 WBC (Bld) 12.9 % Low 19-41 [facility] Comment on above: Performed By: #### L 3100.1350, L101.9900, L100.0100, L506.0200, L504.2610, L503.6550, L3100.1960, L501.2300, L3410.2350, L100.9950 ####[facility] [address] [place], [address] MCH (RBC) [Entitic mass] 25.0 pg Low 27.0-32.0 [facility] Comment on above: Performed By: #### L 3100.1350, L101.9900, L100.0100, L506.0200, L504.2610, L503.6550, L3100.1960, L501.2300, L3410.2350, L100.9950 ####[facility] [address] [place], [place], [phone](002) MCHC (RBC) [Mass/Vol] 29.7 g/dL Low 32-36 [facility] Comment on above: Performed By: #### L 3100.1350, L101.9900, L100.0100, L506.0200, L504.2610, L503.6550, L3100.1960, L501.2300, L3410.2350, L100.9950 ####[facility] [address] [place], [place], [phone](506) MCV (RBC) [Entitic vol] 84.1 fL Normal 80-94 [facility] Comment on above: Performed By: #### L 3100.1350, L101.9900, L100.0100, L506.0200, L504.2610, L503.6550, L3100.1960, L501.2300, L3410.2350, L100.9950 ####[facility] [address] [place], [place], [phone](629) Monocytes/100 WBC (Bld) 7.4 % Normal 0-10 [facility] Comment on above: Performed By: #### L 3100.1350, L101.9900, L100.0100, L506.0200, L504.2610, L503.6550, L3100.1960, L501.2300, L3410.2350, L100.9950 ####[facility] [address] [place], [place], [phone](363) Neutrophils/100 WBC (Bld) 74.9 % High 47-70 [facility] Comment on above: Performed By: #### L 3100.1350, L101.9900, L100.0100, L506.0200, L504.2610, L503.6550, L3100.1960, L501.2300, L3410.2350, L100.9950 ####[facility] [address] [place], [place], [phone](312) Nucleated RBC (Bld) [#/Vol] 0 10*3/uL Normal 0-5 [facility] Comment on above: Performed By: #### L 3100.1350, L101.9900, L100.0100, L506.0200, L504.2610, L503.6550, L3100.1960, L501.2300, L3410.2350, L100.9950 ####[facility] [address] [place], [address](997) Platelet mean volume (Bld) [Entitic vol] 9.3 fL Normal 6.2-12.0 [facility] Comment on above: Performed By: #### L 3100.1350, L101.9900, L100.0100, L506.0200, L504.2610, L503.6550, L3100.1960, L501.2300, L3410.2350, L100.9950 ####[facility] [address] [place], [address](012) Platelets (Bld) [#/Vol] 297 10*3/uL Normal 150-450 [facility] Comment on above: Performed By: #### L 3100.1350, L101.9900, L100.0100, L506.0200, L504.2610, L503.6550, L3100.1960, L501.2300, L3410.2350, L100.9950 ####[facility] [address] [place], [place], [phone](536) RBC (Bld) [#/Vol] 3.64 10*6/uL Low 4.6-6.2 [facility] Comment on above: Performed By: #### L 3100.1350, L101.9900, L100.0100, L506.0200, L504.2610, L503.6550, L3100.1960, L501.2300, L3410.2350, L100.9950 ####[facility] [address] [place], [place], [phone] RDW SD 61.5 fl High 35.1-43.9 [facility] Comment on above: Performed By: #### L 3100.1350, L101.9900, L100.0100, L506.0200, L504.2610, L503.6550, L3100.1960, L501.2300, L3410.2350, L100.9950 ####[facility] [address] [place], [place], [phone] WBC (Bld) [#/Vol] 11.0 10*3/uL Normal 4.4-11.0 [facility] Comment on above: Performed By: #### L 3100.1350, L101.9900, L100.0100, L506.0200, L504.2610, L503.6550, L3100.1960, L501.2300, L3410.2350, L100.9950 ####[facility] [address] [place], [place], [phone] CRPon 01-12-2025 C-REACTIVE PROT 40.70 mg/L High 0.0-3.0 [facility] Comment on above: Performed By: #### L 501.5200, L503.6030, L503.0106, L501.6710, L500.4050 ####[facility] [address] [place], [address] Comprehensive Metabolic Prof ilon 01-12-2025 Albumin [Mass/Vol] 4.1 g/dL Normal 3.4-4.8 [facility] Comment on above: Performed By: #### L 501.5200, L503.6030, L503.0106, L501.6710, L500.4050 ####[facility] [address] [place], [address] Albumin/Globulin [Mass ratio] 0.9 {ratio} Normal 0.9-2.4 [facility] Comment on above: Performed By: #### L 501.5200, L503.6030, L503.0106, L501.6710, L500.4050 ####[facility] [address] [place], [address] ALK PHOS 62 U/L Normal 40-129 [facility] Comment on above: Performed By: #### L 501.5200, L503.6030, L503.0106, L501.6710, L500.4050 ####[facility] [address] [place], [address] ALT [Catalytic activity/Vol] 17 U/L Normal <=46 [facility] Comment on above: Performed By: #### L 501.5200, L503.6030, L503.0106, L501.6710, L500.4050 ####[facility] [address] [place], [address] AST [Catalytic activity/Vol] 20 U/L Normal <=37 [facility] Comment on above: Performed By: #### L 501.5200, L503.6030, L503.0106, L501.6710, L500.4050 ####[facility] [address] [place], [address] Bilirubin [Mass/Vol] 0.47 mg/dL Normal 0.00-1.30 [facility] Comment on above: Performed By: #### L 501.5200, L503.6030, L503.0106, L501.6710, L500.4050 ####[facility] [address] [place], [address] BUN/CRE 15.7 RATIO Normal 10-20 [facility] Comment on above: Performed By: #### L 501.5200, L503.6030, L503.0106, L501.6710, L500.4050 ####[facility] [address] [place], [address] Calcium [Mass/Vol] 9.7 mg/dL Normal 7.6-11.0 [facility] Comment on above: Performed By: #### L 501.5200, L503.6030, L503.0106, L501.6710, L500.4050 ####[facility] [address] [place], [address] Chloride [Moles/Vol] 99 mmol/L Normal 98-108 [facility] Comment on above: Performed By: #### L 501.5200, L503.6030, L503.0106, L501.6710, L500.4050 ####[facility] [address] [place], [address] CO2 [Moles/Vol] 23.6 mmol/L Normal 21.0-32.0 [facility] Comment on above: Performed By: #### L 501.5200, L503.6030, L503.0106, L501.6710, L500.4050 ####[facility] [address] [place], [address] Creatinine [Mass/Vol] 1.30 mg/dL High 0.70-1.20 [facility] Comment on above: Performed By: #### L 501.5200, L503.6030, L503.0106, L501.6710, L500.4050 ####[facility] [address] [place], [address] ECRCL 83.36 ml/min Normal 50-250 [facility] Comment on above: Performed By: #### L 501.5200, L503.6030, L503.0106, L501.6710, L500.4050 ####[facility] [address] [place], [address] GAP 14 Normal 5-15 [facility] Comment on above: Performed By: #### L 501.5200, L503.6030, L503.0106, L501.6710, L500.4050 ####[facility] [address] [place], [address] GFR/1.73 sq M.predicted among non-blacks MDRD (S/P/Bld) [Vol rate/Area] 63 mL/min/{1.73_m2} Normal >60 [facility] Comment on above: Result Comment: mL/m in/1.73m2 CKD-EPI Creatinine Equation (2020) Performed By: #### L 501.5200, L503.6030, L503.0106, L501.6710, L500.4050 ####[facility] [address] [place], [address] Globulin (S) [Mass/Vol] 4.4 g/dL High 2.2-4.2 [facility] Comment on above: Performed By: #### L 501.5200, L503.6030, L503.0106, L501.6710, L500.4050 ####[facility] [address] [place], [address] Glucose [Mass/Vol] 184 mg/dL High 70-99 [facility] Comment on above: Performed By: #### L 501.5200, L503.6030, L503.0106, L501.6710, L500.4050 ####[facility] [address] [place], [address] Potassium [Moles/Vol] 3.5 mmol/L Normal 3.3-5.1 [facility] Comment on above: Performed By: #### L 501.5200, L503.6030, L503.0106, L501.6710, L500.4050 ####[facility] [address] [place], [address] Sodium [Moles/Vol] 136 mmol/L Normal 133-145 [facility] Comment on above: Performed By: #### L 501.5200, L503.6030, L503.0106, L501.6710, L500.4050 ####[facility] [address] [place], [address] T PROT 8.5 g/dL High 5.9-8.4 [facility] Comment on above: Performed By: #### L 501.5200, L503.6030, L503.0106, L501.6710, L500.4050 ####[facility] [address] [place], [address] Urea nitrogen [Mass/Vol] 20 mg/dL High 4-19 [facility] Comment on above: Performed By: #### L 501.5200, L503.6030, L503.0106, L501.6710, L500.4050 ####[facility] [address] [place], [address] Erythrocyte Sed Rateon 01-12 SED RATE 51 mm/hr High 0-20 [facility] Comment on above: Performed By: #### L 3100.1350, L101.9900, L100.0100, L506.0200, L504.2610, L503.6550, L3100.1960, L501.2300, L3410.2350, L100.9950 ####[facility] [address] [place], [place], [phone] Ferritinon 01-12-2025 Ferritin [Mass/Vol] 239 ng/mL Normal 37-417 [facility] Comment on above: Performed By: #### L 3100.1350, L101.9900, L100.0100, L506.0200, L504.2610, L503.6550, L3100.1960, L501.2300, L3410.2350, L100.9950 ####[facility] [address] [place], [address] Folates,Serum (Folic Acid)on 01-12-2025 FOLATES,SERUM 11.60 ng/mL Normal 4.60-34.80 [facility] Comment on above: Order Comment: N Performed By: #### L 3100.1350, L101.9900, L100.0100, L506.0200, L504.2610, L503.6550, L3100.1960, L501.2300, L3410.2350, L100.9950 ####[facility] [address] [place], [address] Iron+Iron Binding Capacityon 01-12-2025 Iron [Mass/Vol] 39 ug/dL Low 65-175 [facility] Comment on above: Performed By: #### L 501.5200, L503.6030, L503.0106, L501.6710, L500.4050 ####[facility] [address] [place], [address] IRON SATURATION 11.7 Normal 9-55 [facility] Comment on above: Performed By: #### L 501.5200, L503.6030, L503.0106, L501.6710, L500.4050 ####[facility] [address] [place], [address] TIBC 334 ug/dL Normal 250-450 [facility] Comment on above: Performed By: #### L 501.5200, L503.6030, L503.0106, L501.6710, L500.4050 ####[facility] [address] [place], [address] UIBC 295 ug/dL Normal 228-428 [facility] Comment on above: Performed By: #### L 501.5200, L503.6030, L503.0106, L501.6710, L500.4050 ####[facility] [address] [place], [address] LDHon 01-12-2025 LDH 343 U/L High 87-241 [facility] Comment on above: Order Comment: 1 Performed By: #### L 3100.1350, L101.9900, L100.0100, L506.0200, L504.2610, L503.6550, L3100.1960, L501.2300, L3410.2350, L100.9950 ####[facility] [address] [place], [address] Magnesiumon 01-12-2025 Magnesium [Mass/Vol] 2.4 mg/dL High 1.5-2.2 [facility] Comment on above: Performed By: #### L 501.5200, L503.6030, L503.0106, L501.6710, L500.4050 ####[facility] [address] [place], [address] Oncology Visit Reporton 12-30 Oncology Visit Report Normal [facility] Phosphoruson 01-12-2025 Phosphate [Mass/Vol] 3.1 mg/dL Normal 2.7-4.5 [facility] Comment on above: Performed By: #### L 3100.1350, L101.9900, L100.0100, L506.0200, L504.2610, L503.6550, L3100.1960, L501.2300, L3410.2350, L100.9950 ####[facility] [address] [place], [address] Retic Panelon 01-12-2025 IM RET FRACTION 28.20 High 3.00-15.90 [facility] Comment on above: Performed By: #### L 3100.1350, L101.9900, L100.0100, L506.0200, L504.2610, L503.6550, L3100.1960, L501.2300, L3410.2350, L100.9950 ####[facility] [address] [place], [place], [id number] RET-HE 27.4 pg Low 30-35 [facility] Comment on above: Performed By: #### L 3100.1350, L101.9900, L100.0100, L506.0200, L504.2610, L503.6550, L3100.1960, L501.2300, L3410.2350, L100.9950 ####[facility] [address] [place], [address] Retic Count 3.06 High 0.5-1.5 [facility] Comment on above: Performed By: #### L 3100.1350, L101.9900, L100.0100, L506.0200, L504.2610, L503.6550, L3100.1960, L501.2300, L3410.2350, L100.9950 ####[facility] [address] [place], [address] Vitamin B12on 01-12-2025 Cobalamin (Vitamin B12) [Mass/Vol] 964 pg/mL High 180-914 [facility] Comment on above: Performed By: #### L 501.5200, L503.6030, L503.0106, L501.6710, L500.4050 ####[facility] [address] [place], [address] 36on 01-11-2025 36 Patient called and s aid insurance will cover generic Brilinta. 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 Normal [facility] 36on 01-07-2025 36 Lvm to speak with patient about medication. Left call back. Normal [facility] 36on 12-31-2024 36 I am happy to change order when they get back to you [facility] Urine Cultureon 12-26-2024 URC Pending Mixed Gram Pos Gram Neg Org [place] Count 50,000-80,000 Presumptive C albicans Presumptive C albicans Normal [facility] Comment on above: Performed By: #### M 100.2200 ####[facility] [address] [place], [address] CBC W/Diff, Automatedon 12-01 [employer] CELLS RARE Normal [facility] Comment on above: Performed By: #### L 100.0100 ####[facility] [address] [place], [address] TEAR DROP RARE Normal [facility] Comment on above: Performed By: #### L 100.0100 ####[facility] [address] [place], [address] Anisocytosis Ql (Bld) 2+ Normal [facility] Comment on above: Performed By: #### L 100.0100 ####[facility] [address] [place], [address] OVALOCYTE 2+ Normal [facility] Comment on above: Performed By: #### L 100.0100 ####[facility] [address] [place], [address] PLT EST ADEQUATE Normal ADEQ [facility] Comment on above: Performed By: #### L 100.0100 ####[facility] [address] [place], [address] POLYCHROMASIA 1+ Normal [facility] Comment on above: Performed By: #### L 100.0100 ####[facility] [address] [place], [address] SMEAR COMMENT SCANNED Normal [facility] Comment on above: Performed By: #### L 100.0100 ####[facility] [address] [place], [address] Absolute lymphocyte countOrd ered By: Juan Diego Davis on 12-23-2024 Lymphocytes Auto (Unsp spec) [#/Vol] 1.19 10*3/uL 0.83-4.51 [facility] Anion gap in Serum or Plasma Ordered By: Juan Diego Davis on 12-23-2024 Anion gap [Moles/Vol] 15 mmol/L 5-15 [facility] Automated lymphocyte count a s percentage of total leukocytesOrdered By: Juan Diego Davis on 12-23-2024 Lymphocytes/100 WBC Auto (Unsp spec) 16.1 % Low 19-41 [facility] BUN/creatinine ratioOrdered By: Juan Diego Davis on 12-23-2024 Urea nitrogen/Creatinine [Mass ratio] 17.4 mg/mg 10- [facility] Basic Metabolic Profile (BMP )on 12-23-2024 BUN/CRE 17.4 RATIO Normal - [facility] Comment on above: Performed By: #### L 501.9520, L500.2500, L501.5200 ####[facility] [address] [place], [address] Calcium [Mass/Vol] 9.2 mg/dL Normal 7.6-11.0 [facility] Comment on above: Performed By: #### L 501.9520, L500.2500, L501.5200 ####[facility] [address] [place], [address] Chloride [Moles/Vol] 99 mmol/L Normal 98-108 [facility] Comment on above: Performed By: #### L 501.9520, L500.2500, L501.5200 ####[facility] [address] [place], [address] CO2 [Moles/Vol] 24.8 mmol/L Normal 21.0-32.0 [facility] Comment on above: Performed By: #### L 501.9520, L500.2500, L501.5200 ####[facility] [address] [place], [address] Creatinine [Mass/Vol] 1.30 mg/dL High 0.70-1.20 [facility] Comment on above: Performed By: #### L 501.9520, L500.2500, L501.5200 ####[facility] [address] [place], [address] ECRCL 84.42 ml/min Normal 50-250 [facility] Comment on above: Performed By: #### L 501.9520, L500.2500, L501.5200 ####[facility] [address] [place], [address] GAP 15 Normal 5-15 [facility] Comment on above: Performed By: #### L 501.9520, L500.2500, L501.5200 ####[facility] [address] [place], [address] GFR/1.73 sq M.predicted among non-blacks MDRD (S/P/Bld) [Vol rate/Area] 63 mL/min/{1.73_m2} Normal >60 [facility] Comment on above: Result Comment: mL/m in/1.73m2 CKD-EPI Creatinine Equation (2020) Performed By: #### L 501.9520, L500.2500, L501.5200 ####[facility] [address] [place], [address] Glucose [Mass/Vol] 228 mg/dL High 70-99 [facility] Comment on above: Performed By: #### L 501.9520, L500.2500, L501.5200 ####[facility] [address] [place], [address] Potassium [Moles/Vol] 3.5 mmol/L Normal 3.3-5.1 [facility] Comment on above: Performed By: #### L 501.9520, L500.2500, L501.5200 ####[facility] [address] [place], [address] Sodium [Moles/Vol] 139 mmol/L Normal 133-145 [facility] Comment on above: Performed By: #### L 501.9520, L500.2500, L501.5200 ####[facility] [address] [place], [address] Urea nitrogen [Mass/Vol] 23 mg/dL High 4-19 [facility] Comment on above: Performed By: #### L 501.9520, L500.2500, L501.5200 ####[facility] [address] [place], [address] Basophil percentageOrdered B y: Juan Diego Davis on 12-23-2024 Basophils/100 WBC (Bld) 0.7 % 0-1 [facility] Bilirubin Test strip Ql (U)O rdered By: Juan Diego Davis on 12-23-2024 Bilirubin Ql (U) Negative Negative [facility] Blood manual differential co mment interpretation (narrative result)Ordered By: Juan Diego Davis on 12-23-2024 Manual differential comment Cedrick (Bld) [Interp] SCANNED [facility] Blood polychromasia detectio n by light microscopyOrdered By: Juan Diego Davis on 12-23-2024 Polychromasia LM Ql (Bld) 1+ [facility] Brain/Head without Contrasto n 12-23-2024 Brain/Head without Contrast Normal [facility] Carbon dioxide, total [Moles /volume] in Central venous bloodOrdered By: Juan Diego Davis on 12-23-2024 CO2 [Moles/Vol] 24.8 mmol/L 21.0-32.0 [facility] Chloride assayOrdered By: Vicky Davis on 12-23-2024 Chloride [Moles/Vol] 99 mmol/L 98-108 [facility] Emergency Department Summary on 12-23-2024 Emergency Department Summary Normal [facility] Eosinophil percentageOrdered By: Juan Diego Davis on 12-23-2024 Eosinophils/100 WBC (Bld) 3.0 % 0-5 [facility] Erythrocyte distribution wid th ratioOrdered By: Juan Diego Davis on 12-23-2024 Erythrocyte distribution width (RBC) [Ratio] 21.0 % High 11.6-14.6 [facility] Erythrocyte distribution wid th standard deviationOrdered By: Juan Diego Davis on 12-23-2024 Erythrocyte distribution width (RBC) [Ratio] 62.6 fl High 35.1-43.9 [facility] Glomerular filtration rate ( GFR) estimation/1.73 sq m using serum, plasma, or whole bOrdered By: Juan Diego Davis on 12-23-2024 GFR/1.73 sq M.predicted among non-blacks MDRD (S/P/Bld) [Vol rate/Area] 63 mL/min/{1.73_m2} >60 [facility] Hematocrit Auto (Bld) [Volum e fraction]Ordered By: Juan Diego Davis on 12-23-2024 Hematocrit (Bld) [Volume fraction] 33.7 % Low 40-54 [facility] Hemoglobin measurementOrdere d By: Juan Diego Davis on 12-23-2024 Hemoglobin (Bld) [Mass/Vol] 10.3 g/dL Low 13.0-16.5 [facility] Immature granulocytes/100 WB C Auto (Bld)Ordered By: Juan Diego Davis on 12-23-2024 Immature granulocytes/100 WBC (Bld) 1.200 % High 0.0-0.9 [facility] Influenza virus A and B and SARS-CoV-2 (COVID-19) and Respiratory syncytial virus RNAOrdered By: Juan Diego Davis on 12-23-2024 SARS-CoV-2 (COVID-19) RNA FLORES+probe Ql (Unsp spec) [facility] Ketones Test strip Ql (U)Ord ered By: Juan Diego Davis on 12-23-2024 Ketones Ql (U) Negative Negative [facility] M100.678on 12-23-2024 M100.678 Pending SARS-CoV-2 (COVID 19) Negative INFLUENZA A Negative INFLUENZA B Negative RSV PCR Negative Normal [facility] Comment on above: Performed By: #### M 100.678 ####[facility] [address] [place], [place], [id number] MCV (mean corpuscular volume ) determinationOrdered By: Juan Diego Davis on 12-23-2024 MCV (RBC) [Entitic vol] 82.8 fL 80-94 [facility] Magnesiumon 12-23-2024 Magnesium [Mass/Vol] 2.1 mg/dL Normal 1.5-2.2 [facility] Comment on above: Performed By: #### L 501.9520, L500.2500, L501.5200 ####[facility] [address] [place], [place], [id number] Magnesium measurement (mass/ volume)Ordered By: Juan Diego Davis on 12-23-2024 Magnesium (Unsp spec) [Mass/Vol] 2.1 mg/dL 1.5-2.2 [facility] Mean corpuscular hemoglobin (MCH) determinationOrdered By: Juan Diego Davis on 12-23-2024 MCH (RBC) [Entitic mass] 25.3 pg Low 27.0-32.0 [facility] Monocyte percentageOrdered B y: Juan Diego Davis on 12-23-2024 Monocytes/100 WBC (Bld) 10.4 % High 0-10 [facility] Mucus LM Ql (Urine sed)Order ed By: Juan Diego Davis on 12-23-2024 Mucus Ql (Urine sed) 0 SEEN /hpf [facility] Neutrophil percentageOrdered By: Juan Diego Davis on 12-23-2024 Neutrophils/100 WBC (Bld) 68.6 % 47-70 [facility] Nitrite Test strip Ql (U)Ord ered By: Juan Diego Davis on 12-23-2024 Nitrite Ql (U) Negative Negative [facility] No Panel InformationOrdered By: Juan Diego Davis on 12-23-2024 2+ [facility] Ovalocyte detectionOrdered B y: Juan Diego Davis on 12-23-2024 Ovalocytes LM Ql (Bld) 2+ [facility] Platelet countOrdered By: Vicky Davis on 12-23-2024 Platelets (Bld) [#/Vol] 223 10*3/uL 150-450 [facility] Platelet estimateOrdered By: Juan Diego Davis on 12-23-2024 Platelets LM Ql (Bld) ADEQUATE ADEQ [facility] Potassium measurement (mass/ volume)Ordered By: Juan Diego Davis on 12-23-2024 Potassium (Unsp spec) [Mass/Vol] 3.5 mmol/L 3.3-5.1 [facility] Protein Test strip Ql (U)Ord ered By: Juan Diego Davis on 12-23-2024 Protein Ql (U) 30 mg/dl High Negative [facility] RBC Auto (Bld) [#/Vol]Ordere d By: Juan Diego Davis on 12-23-2024 RBC (Bld) [#/Vol] 4.07 10*6/uL Low 4.6-6.2 [facility] Serum creatinine measurement (mass/volume)Ordered By: Juan Diego Davis on 12-23-2024 Creatinine [Mass/Vol] 1.30 mg/dL High 0.70-1.20 [facility] Serum glucose measurement (m ass/volume)Ordered By: Juan Diego Davis on 12-23-2024 Glucose [Mass/Vol] 228 mg/dL High 70-99 [facility] Serum or plasma calcium grazyna urement (mass/volume)Ordered By: Juan Diego Davis on 12-23-2024 Calcium [Mass/Vol] 9.2 mg/dL 7.6-11.0 [facility] Serum or plasma urea nitroge n measurement (mass/volume)Ordered By: Juan Diego aDvis on 12-23-2024 Urea nitrogen [Mass/Vol] 23 mg/dL High 4-19 [facility] Sodium levelOrdered By: Saji Davis on 12-23-2024 Sodium [Moles/Vol] 139 mmol/L 133-145 [facility] Squamous epithelial cells de tection in urine sediment by light microscopyOrdered By: Juan Diego Davis on 12-23-2024 Epithelial cells.squamous LM Ql (Urine sed) 10-25 SEEN /hpf 0-5 [facility] TSH DL <= 0.005 mIU/L QnOrde red By: Juan Diego Davis on 12-23-2024 TSH Qn 1.160 uIU/mL 0.300-4.200 [facility] Target cell detectionOrdered By: Juan Diego Davis on 12-23-2024 Target cells LM Ql (Bld) RARE [facility] Teardrop cell detectionOrder ed By: Juan Diego Davis on 12-23-2024 Dacrocytes LM Ql (Bld) [facility] Thyroid Stim Hormone (TSH)on 12-23-2024 TSH 1.160 uIU/mL Normal 0.300-4.200 [facility] Comment on above: Performed By: #### L 501.9520, L500.2500, L501.5200 ####[facility] [address] [place], [address] Urinalysis, Completeon 12-23 BACTERIA 2+ /hpf Normal None Seen [facility] Comment on above: Order Comment: CLEAN CATCH Performed By: #### L 400.0001 ####[facility] [address] [place], [address] RBC 5-10 SEEN Normal 0-5 [facility] Comment on above: Order Comment: CLEAN CATCH Performed By: #### L 400.0001 ####[facility] [address] [place], [address] YEAST 2+ /hpf Normal None Seen [facility] Comment on above: Order Comment: CLEAN CATCH Performed By: #### L 400.0001 ####[facility] [address] [place], [address] EPI,SQUAMOUS 10-25 SEEN Normal 0-5 [facility] Comment on above: Order Comment: CLEAN CATCH Performed By: #### L 400.0001 ####[facility] [address] [place], [address] WBC >100 SEEN Normal 0-5 [facility] Comment on above: Order Comment: CLEAN CATCH Performed By: #### L 400.0001 ####[facility] [address] [place], [address] Mucus Ql (Urine sed) 0 SEEN Normal [facility] Comment on above: Order Comment: CLEAN CATCH Performed By: #### L 400.0001 ####[facility] [address] [place], [address] Urine clarityOrdered By: Sarthak Davis on 12-23-2024 Clarity (U) Turbid Clear [facility] Urine color determinationOrd ered By: Juan Diego Davis on 12-23-2024 Color (U) Yellow Yellow [facility] Urine cultureOrdered By: Sarthak Davis on 12-23-2024 Bacteria identified Cx Nom (U) Mixed Gram Pos & Gram Neg Org Abnormal [facility] Bacteria identified Cx Nom (U) Presumptive C albicans Abnormal [facility] Urine glucose detectionOrder ed By: Juan Diego Davis on 12-23-2024 Glucose Ql (U) 1000 mg/dl High Normal [facility] Urine leukocyte esterase det ection by dipstickOrdered By: Juan Diego Davis on 12-23-2024 Leukocyte esterase Test strip Ql (U) 500 /ul High Negative [facility] Urine pHOrdered By: Juan Diego morales on 12-23-2024 pH (U) 6.0 [pH] 5.0 - 8.0 [facility] Urine sediment bacteria coun t by microscopy (number/high power field)Ordered By: Juan Diego Davis on 12-23-2024 Bacteria LM.HPF (Urine sed) [#/Area] 2 /[HPF] None Seen [facility] Urine sediment yeast count b y microscopy (number/high powered field)Ordered By: Juan Diego Davis on 12-23-2024 Yeast LM.HPF (Urine sed) [#/Area] 2 /[HPF] None Seen [facility] Urine specific gravity measu rementOrdered By: Juan Diego Davis on 12-23-2024 Specific gravity (U) [Rel density] 1.015 1.002-1.030 [facility] Urine urobilinogen measureme ntOrdered By: Juan Diego Davis on 12-23-2024 Urobilinogen Ql (U) Normal mg/dl Normal [facility] White blood cell (WBC) count Ordered By: Juan Diego Davis on 12-23-2024 WBC (Bld) [#/Vol] 7.4 10*3/uL 4.4-11.0 [facility] White blood cell countOrdere d By: Juan Diego Davis on 12-23-2024 White blood cell count >100 SEEN /hpf 0-5 [facility] Ctr History AND Physic jeovanny 12-17-2024 Wound Ctr History & Physical Normal [facility] 36on 12-11-2024 36 Returning call to patient. They said that their insurance will stop paying for Brilinta January 30 2025. I called to see if they knew if they will cover the generic version or not. No answer LVM Normal [facility] Absolute lymphocyte countOrd ered By: Rito Lundberg on 12-09-2024 Lymphocytes Auto (Unsp spec) [#/Vol] 0.88 10*3/uL 0.83-4.51 [facility] Automated lymphocyte count a s percentage of total leukocytesOrdered By: Rito Lundberg on 12-09-2024 Lymphocytes/100 WBC Auto (Unsp spec) 5.1 % Low 19-41 [facility] Basophil percentageOrdered B y: Rito Lundberg on 12-09-2024 Basophils/100 WBC (Bld) 0.6 % 0-1 [facility] CBC W/Diff, Automatedon 11-30 Absolute Lymph 0.88 X10 3/uL Normal 0.83-4.51 [facility] Comment on above: Performed By: #### L 503.4974, L100.0100, L503.6030 ####[facility] [address] [place], [address] Absolute Neut 15.0 X10 3/uL High 2.0-7.7 [facility] Comment on above: Performed By: #### L 503.6550, L100.0100, L503.6030 ####[facility] [address] [place], [address] Basophils/100 WBC (Bld) 0.6 % Normal 0-1 [facility] Comment on above: Performed By: #### L 503.6550, L100.0100, L503.6030 ####[facility] [address] [place], [address] Eosinophils/100 WBC (Bld) 0.3 % Normal 0-5 [facility] Comment on above: Performed By: #### L 503.6550, L100.0100, L503.6030 ####[facility] [address] [place], [address] Erythrocyte distribution width (RBC) [Ratio] 19.0 % High 11.6-14.6 [facility] Comment on above: Performed By: #### L 503.6550, L100.0100, L503.6030 ####[facility] [address] [place], [address] Hematocrit (Bld) [Volume fraction] 31.2 % Low 40-54 [facility] Comment on above: Performed By: #### L 503.6550, L100.0100, L503.6030 ####[facility] [address] [place], [address] Hemoglobin (Bld) [Mass/Vol] 9.6 g/dL Low 13.0-16.5 [facility] Comment on above: Performed By: #### L 503.6550, L100.0100, L503.6030 ####[facility] [address] [place], [address] IG% 2.800 High 0.0-0.9 [facility] Comment on above: Result Comment: IG% - Immature Granulocytes (promyelocytes, myelocytes andmetamyelocytes) > 1% indicates that a LEFT SHIFT is Present. Performed By: #### L 503.6550, L100.0100, L503.6030 ####[facility] [address] [place], [address] Lymphocytes/100 WBC (Bld) 5.1 % Low 19-41 [facility] Comment on above: Performed By: #### L 503.6550, L100.0100, L503.6030 ####[facility] [address] [place], [address] MCH (RBC) [Entitic mass] 24.3 pg Low 27.0-32.0 [facility] Comment on above: Performed By: #### L 503.6550, L100.0100, L503.6030 ####[facility] [address] [place], [address] MCHC (RBC) [Mass/Vol] 30.8 g/dL Low 32-36 [facility] Comment on above: Performed By: #### L 503.6550, L100.0100, L503.6030 ####[facility] [address] [place], [address] MCV (RBC) [Entitic vol] 79.0 fL Low 80-94 [facility] Comment on above: Performed By: #### L 503.6550, L100.0100, L503.6030 ####[facility] [address] [place], [address] Monocytes/100 WBC (Bld) 4.9 % Normal 0-10 [facility] Comment on above: Performed By: #### L 503.6550, L100.0100, L503.6030 ####[facility] [address] [place], [address] Neutrophils/100 WBC (Bld) 86.3 % High 47-70 [facility] Comment on above: Performed By: #### L 503.6550, L100.0100, L503.6030 ####[facility] [address] [place], [address] Nucleated RBC (Bld) [#/Vol] 0 10*3/uL Normal 0-5 [facility] Comment on above: Performed By: #### L 503.6550, L100.0100, L503.6030 ####[facility] [address] [place], [address] Platelet mean volume (Bld) [Entitic vol] 10.3 fL Normal 6.2-12.0 [facility] Comment on above: Performed By: #### L 503.6550, L100.0100, L503.6030 ####[facility] [address] [place], [address] Platelets (Bld) [#/Vol] 275 10*3/uL Normal 150-450 [facility] Comment on above: Performed By: #### L 503.6550, L100.0100, L503.6030 ####[facility] [address] [place], [address] RBC (Bld) [#/Vol] 3.95 10*6/uL Low 4.6-6.2 [facility] Comment on above: Performed By: #### L 503.6550, L100.0100, L503.6030 ####[facility] [address] [place], [address] RDW SD 52.8 fl High 35.1-43.9 [facility] Comment on above: Performed By: #### L 503.6550, L100.0100, L503.6030 ####[facility] [address] [place], [address] WBC (Bld) [#/Vol] 17.3 10*3/uL High 4.4-11.0 [facility] Comment on above: Performed By: #### L 503.6550, L100.0100, L503.6030 ####[facility] [address] [place], [address] Eosinophil percentageOrdered By: Rito Lundberg on 12-09-2024 Eosinophils/100 WBC (Bld) 0.3 % 0-5 [facility] Erythrocyte distribution wid th ratioOrdered By: Rito Lundberg on 12-09-2024 Erythrocyte distribution width (RBC) [Ratio] 19.0 % High 11.6-14.6 [facility] Erythrocyte distribution wid th standard deviationOrdered By: Rito Lundberg on 12-09-2024 Erythrocyte distribution width (RBC) [Ratio] 52.8 fl High 35.1-43.9 [facility] Ferritinon 12-09-2024 Ferritin [Mass/Vol] 237 ng/mL Normal 37-417 [facility] Comment on above: Performed By: #### L 503.6550, L100.0100, L503.6030 ####[facility] [address] [place], [address] Hematocrit Auto (Bld) [Volum e fraction]Ordered By: Rito Lundberg on 12-09-2024 Hematocrit (Bld) [Volume fraction] 31.2 % Low 40-54 [facility] Hemoglobin measurementOrdere d By: Rito Lundberg on 12-09-2024 Hemoglobin (Bld) [Mass/Vol] 9.6 g/dL Low 13.0-16.5 [facility] Immature granulocytes/100 WB C Auto (Bld)Ordered By: Rito Lundberg on 12-09-2024 Immature granulocytes/100 WBC (Bld) 2.800 % High 0.0-0.9 [facility] Iron measurement (mass/mass) Ordered By: Rito Lundberg on 12-09-2024 Iron (Unsp spec) [Mass/Mass] 56 ug/dL Low 65-175 [facility] Iron+Iron Binding Capacityon 12-09-2024 Iron [Mass/Vol] 56 ug/dL Low 65-175 [facility] Comment on above: Performed By: #### L 503.6550, L100.0100, L503.6030 ####[facility] [address] [place], [address] IRON SATURATION 19.0 Normal 9-55 [facility] Comment on above: Performed By: #### L 503.6550, L100.0100, L503.6030 ####[facility] [address] [place], [address] TIBC 293 ug/dL Normal 250-450 [facility] Comment on above: Performed By: #### L 503.6550, L100.0100, L503.6030 ####[facility] [address] [place], [address] UIBC 237 ug/dL Normal 228-428 [facility] Comment on above: Performed By: #### L 503.6550, L100.0100, L503.6030 ####[facility] [address] [place], [address] MCV (mean corpuscular volume ) determinationOrdered By: Rito Lundberg on 12-09-2024 MCV (RBC) [Entitic vol] 79.0 fL Low 80-94 [facility] Mean corpuscular hemoglobin (MCH) determinationOrdered By: Rito Lundberg on 12-09-2024 MCH (RBC) [Entitic mass] 24.3 pg Low 27.0-32.0 [facility] Monocyte percentageOrdered B y: Rito Lundberg on 12-09-2024 Monocytes/100 WBC (Bld) 4.9 % 0-10 [facility] Neutrophil percentageOrdered By: Rito Lundberg on 12-09-2024 Neutrophils/100 WBC (Bld) 86.3 % High 47-70 [facility] No Panel InformationOrdered By: Rito Tamika on 12-09-2024 237 ug/dL 228-428 [facility] Platelet countOrdered By: Chanell sandyearlene Lundberg on 12-09-2024 Platelets (Bld) [#/Vol] 275 10*3/uL 150-450 [facility] RBC Auto (Bld) [#/Vol]Ordere d By: Rito Lundberg on 12-09-2024 RBC (Bld) [#/Vol] 3.95 10*6/uL Low 4.6-6.2 [facility] Serum or plasma ferritin elizabeth surement (mass/volume)Ordered By: Hienearlene Lundberg on 12-09-2024 Ferritin [Mass/Vol] 237 ng/mL 37-417 [facility] Serum or plasma iron saturat ion measurement (mass fraction)Ordered By: Rito Lundberg on 12-09-2024 Iron saturation [Mass fraction] 19.0 % 9-55 [facility] White blood cell (WBC) count Ordered By: Hienearlene Lundberg on 12-09-2024 WBC (Bld) [#/Vol] 17.3 10*3/uL High 4.4-11.0 [facility] Culture, Blood (WB)on 2024 CUB Blood cultures x2, f rom two different sites No growth in 5 days. Normal [facility] Comment on above: Performed By: #### L 500.4050, L100.0100, M200.1000, L503.6005, L501.4021 ####[facility] [address] [place], [address] Basic Metabolic Profile (BMP )on 11-29-2024 BUN Normal - [facility] Comment on above: Result Comment: Canc elled via OM: Order cancelled - Patient discharged Performed By: #### L 100.0100, L500.2500 ####[facility] [address] [place], [address] BUN/CRE Normal - [facility] Comment on above: Result Comment: Canc elled via OM: Order cancelled - Patient discharged Performed By: #### L 100.0100, L500.2500 ####[facility] [address] [place], [address] Calcium Normal 7.6-11.0 [facility] Comment on above: Result Comment: Canc elled via OM: Order cancelled - Patient discharged Performed By: #### L 100.0100, L500.2500 ####[facility] [address] [place], [address] CL Normal 98-108 [facility] Comment on above: Result Comment: Canc elled via OM: Order cancelled - Patient discharged Performed By: #### L 100.0100, L500.2500 ####[facility] [address] [place], [address] CO2 Normal 21.0-32.0 [facility] Comment on above: Result Comment: Canc elled via OM: Order cancelled - Patient discharged Performed By: #### L 100.0100, L500.2500 ####[facility] [address] [place], [address] CREAT,SERUM Normal 0.70-1.20 [facility] Comment on above: Result Comment: Canc elled via OM: Order cancelled - Patient discharged Performed By: #### L 100.0100, L500.2500 ####[facility] [address] [place], [address] eGFR Normal >60 [facility] Comment on above: Result Comment: Canc elled via OM: Order cancelled - Patient discharged Performed By: #### L 100.0100, L500.2500 ####[facility] [address] [place], [address] GAP Normal 5-15 [facility] Comment on above: Result Comment: Canc elled via OM: Order cancelled - Patient discharged Performed By: #### L 100.0100, L500.2500 ####[facility] [address] [place], [address] GLU Normal 70-99 [facility] Comment on above: Result Comment: Canc elled via OM: Order cancelled - Patient discharged Performed By: #### L 100.0100, L500.2500 ####[facility] [address] [place], [address] Potassium Normal 3.3-5.1 [facility] Comment on above: Result Comment: Canc elled via OM: Order cancelled - Patient discharged Performed By: #### L 100.0100, L500.2500 ####[facility] [address] [place], [address] Basic Metabolic Profile (BMP) Normal 133-145 [facility] Comment on above: Result Comment: Canc elled via OM: Order cancelled - Patient discharged Performed By: #### L 100.0100, L500.2500 ####[facility] [address] [place], [address] CBC W/Diff, Automatedon 08-3 Absolute Neut Normal 2.0-7.7 [facility] Comment on above: Result Comment: Canc elled via OM: Order cancelled - Patient discharged Performed By: #### L 100.0100, L500.2500 ####[facility] [address] [place], [address] HCT Normal 40-54 [facility] Comment on above: Result Comment: Canc elled via OM: Order cancelled - Patient discharged Performed By: #### L 100.0100, L500.2500 ####[facility] [address] [place], [address] HGB Normal 13.0-16.5 [facility] Comment on above: Result Comment: Canc elled via OM: Order cancelled - Patient discharged Performed By: #### L 100.0100, L500.2500 ####[facility] [address] [place], [address] MCH Normal 27.0-32.0 [facility] Comment on above: Result Comment: Canc elled via OM: Order cancelled - Patient discharged Performed By: #### L 100.0100, L500.2500 ####[facility] [address] [place], [address] MCHC Normal 32-36 [facility] Comment on above: Result Comment: Canc elled via OM: Order cancelled - Patient discharged Performed By: #### L 100.0100, L500.2500 ####[facility] [address] [place], [address] MCV Normal 80-94 [facility] Comment on above: Result Comment: Canc elled via OM: Order cancelled - Patient discharged Performed By: #### L 100.0100, L500.2500 ####[facility] [address] [place], [address] NEUT% Normal 47-70 [facility] Comment on above: Result Comment: Canc elled via OM: Order cancelled - Patient discharged Performed By: #### L 100.0100, L500.2500 ####[facility] [address] [place], [address] PLT Normal 150-450 [facility] Comment on above: Result Comment: Canc elled via OM: Order cancelled - Patient discharged Performed By: #### L 100.0100, L500.2500 ####[facility] [address] [place], [address] RBC Normal 4.6-6.2 [facility] Comment on above: Result Comment: Canc elled via OM: Order cancelled - Patient discharged Performed By: #### L 100.0100, L500.2500 ####[facility] [address] [place], [address] RDW CV Normal 11.6-14.6 [facility] Comment on above: Result Comment: Canc elled via OM: Order cancelled - Patient discharged Performed By: #### L 100.0100, L500.2500 ####[facility] [address] [place], [address] RDW SD Normal 35.1-43.9 [facility] Comment on above: Result Comment: Canc elled via OM: Order cancelled - Patient discharged Performed By: #### L 100.0100, L500.2500 ####[facility] [address] [place], [address] WBC Normal 4.4-11.0 [facility] Comment on above: Result Comment: Canc elled via OM: Order cancelled - Patient discharged Performed By: #### L 100.0100, L500.2500 ####[facility] [address] [place], [address] Urine Cultureon 11-29-2024 URC Normal [facility] Comment on above: Performed By: #### M 100.2200, L400.0001 ####[facility] [address] [place], [address] Absolute lymphocyte countOrd ered By: Ochoa Johnson on 11-28-2024 Lymphocytes Auto (Unsp spec) [#/Vol] 1.28 10*3/uL 0.83-4.51 [facility] Anion gap in Serum or Plasma Ordered By: Ochoa Johnson on 11-28-2024 Anion gap [Moles/Vol] 12 mmol/L 5-15 [facility] Automated lymphocyte count a s percentage of total leukocytesOrdered By: Ochoa Johnson on 11-28-2024 Lymphocytes/100 WBC Auto (Unsp spec) 11.2 % Low 19-41 [facility] BUN/creatinine ratioOrdered By: Ochoa Johnson on 11-28-2024 Urea nitrogen/Creatinine [Mass ratio] 21.1 mg/mg High 10-20 [facility] Basic Metabolic Profile (BMP )on 11-28-2024 BUN/CRE 21.1 RATIO High 10-20 [facility] Comment on above: Performed By: #### L 500.2500, L100.0100 ####[facility] [address] [place], [address] Calcium [Mass/Vol] 9.0 mg/dL Normal 7.6-11.0 [facility] Comment on above: Performed By: #### L 500.2500, L100.0100 ####[facility] [address] [place], [address] Chloride [Moles/Vol] 102 mmol/L Normal 98-108 [facility] Comment on above: Performed By: #### L 500.2500, L100.0100 ####[facility] [address] [place], [address] CO2 [Moles/Vol] 20.5 mmol/L Low 21.0-32.0 [facility] Comment on above: Performed By: #### L 500.2500, L100.0100 ####[facility] [address] [place], [address] Creatinine [Mass/Vol] 1.23 mg/dL High 0.70-1.20 [facility] Comment on above: Performed By: #### L 500.2500, L100.0100 ####[facility] [address] [place], [address] ECRCL 90.61 ml/min Normal 50-250 [facility] Comment on above: Performed By: #### L 500.2500, L100.0100 ####[facility] [address] [place], [address] GAP 12 Normal 5-15 [facility] Comment on above: Performed By: #### L 500.2500, L100.0100 ####[facility] [address] [place], [address] GFR/1.73 sq M.predicted among non-blacks MDRD (S/P/Bld) [Vol rate/Area] 67 mL/min/{1.73_m2} Normal >60 [facility] Comment on above: Result Comment: mL/m in/1.73m2 CKD-EPI Creatinine Equation (2020) Performed By: #### L 500.2500, L100.0100 ####[facility] [address] [place], [address] Glucose [Mass/Vol] 242 mg/dL High 70-99 [facility] Comment on above: Performed By: #### L 500.2500, L100.0100 ####[facility] [address] [place], [address] Potassium [Moles/Vol] 3.8 mmol/L Normal 3.3-5.1 [facility] Comment on above: Performed By: #### L 500.2500, L100.0100 ####[facility] [address] [place], [address] Sodium [Moles/Vol] 135 mmol/L Normal 133-145 [facility] Comment on above: Performed By: #### L 500.2500, L100.0100 ####[facility] [address] [place], [address] Urea nitrogen [Mass/Vol] 26 mg/dL High 4-19 [facility] Comment on above: Performed By: #### L 500.2500, L100.0100 ####[facility] [address] [place], [address] Basophil percentageOrdered B y: Ochoa Johnson on 11-28-2024 Basophils/100 WBC (Bld) 0.3 % 0-1 [facility] Bedside Glucoseon 11-28-2024 FINGERSTICK GLU 223 mg/dL High 74-106 [facility] Comment on above: Result Comment: ANI GEMENT OF PATIENT CARE PER NURSING PROTOCOL Performed By: #### L 501.080 ####[facility] [address] [place], [address] FINGERSTICK GLU 228 mg/dL High 74-106 [facility] Comment on above: Result Comment: ANI GEMENT OF PATIENT CARE PER NURSING PROTOCOL Performed By: #### L 501.080 ####[facility] [address] [place], [address] CBC W/Diff, Automatedon 08-3 0-2025 Absolute Lymph 1.28 X10 3/uL Normal 0.83-4.51 [facility] Comment on above: Performed By: #### L 500.2500, L100.0100 ####[facility] [address] [place], [address] Absolute Neut 8.9 X10 3/uL High 2.0-7.7 [facility] Comment on above: Performed By: #### L 500.2500, L100.0100 ####[facility] [address] [place], [address] Basophils/100 WBC (Bld) 0.3 % Normal 0-1 [facility] Comment on above: Performed By: #### L 500.2500, L100.0100 ####[facility] [address] [place], [address] Eosinophils/100 WBC (Bld) 1.7 % Normal 0-5 [facility] Comment on above: Performed By: #### L 500.2500, L100.0100 ####[facility] [address] [place], [address] Erythrocyte distribution width (RBC) [Ratio] 17.9 % High 11.6-14.6 [facility] Comment on above: Performed By: #### L 500.2500, L100.0100 ####[facility] [address] [place], [address] Hematocrit (Bld) [Volume fraction] 27.4 % Low 40-54 [facility] Comment on above: Performed By: #### L 500.2500, L100.0100 ####[facility] [address] [place], [address] Hemoglobin (Bld) [Mass/Vol] 8.6 g/dL Low 13.0-16.5 [facility] Comment on above: Performed By: #### L 500.2500, L100.0100 ####[facility] [address] [place], [address] IG% 0.900 Normal 0.0-0.9 [facility] Comment on above: Result Comment: IG% - Immature Granulocytes (promyelocytes, myelocytes andmetamyelocytes) > 1% indicates that a LEFT SHIFT is Present. Performed By: #### L 500.2500, L100.0100 ####[facility] [address] [place], [address] Lymphocytes/100 WBC (Bld) 11.2 % Low 19-41 [facility] Comment on above: Performed By: #### L 500.2500, L100.0100 ####[facility] [address] [place], [address] MCH (RBC) [Entitic mass] 24.3 pg Low 27.0-32.0 [facility] Comment on above: Performed By: #### L 500.2500, L100.0100 ####[facility] [address] [place], [address] MCHC (RBC) [Mass/Vol] 31.4 g/dL Low 32-36 [facility] Comment on above: Performed By: #### L 500.2500, L100.0100 ####[facility] [address] [place], [address] MCV (RBC) [Entitic vol] 77.4 fL Low 80-94 [facility] Comment on above: Performed By: #### L 500.2500, L100.0100 ####[facility] [address] [place], [address] Monocytes/100 WBC (Bld) 7.9 % Normal 0-10 [facility] Comment on above: Performed By: #### L 500.2500, L100.0100 ####[facility] [address] [place], [address] Neutrophils/100 WBC (Bld) 78.0 % High 47-70 [facility] Comment on above: Performed By: #### L 500.2500, L100.0100 ####[facility] [address] [place], [address] Nucleated RBC (Bld) [#/Vol] 0 10*3/uL Normal 0-5 [facility] Comment on above: Performed By: #### L 500.2500, L100.0100 ####[facility] [address] [place], [address] Platelet mean volume (Bld) [Entitic vol] 10.1 fL Normal 6.2-12.0 [facility] Comment on above: Performed By: #### L 500.2500, L100.0100 ####[facility] [address] [place], [address] Platelets (Bld) [#/Vol] 195 10*3/uL Normal 150-450 [facility] Comment on above: Performed By: #### L 500.2500, L100.0100 ####[facility] [address] [place], [address] RBC (Bld) [#/Vol] 3.54 10*6/uL Low 4.6-6.2 [facility] Comment on above: Performed By: #### L 500.2500, L100.0100 ####[facility] [address] [place], [address] RDW SD 51.1 fl High 35.1-43.9 [facility] Comment on above: Performed By: #### L 500.2500, L100.0100 ####[facility] [address] [place], [address] WBC (Bld) [#/Vol] 11.5 10*3/uL High 4.4-11.0 [facility] Comment on above: Performed By: #### L 500.2500, L100.0100 ####[facility] [address] [place], [address] Carbon dioxide, total [Moles /volume] in Central venous bloodOrdered By: Ochoa Johnson on 11-28-2024 CO2 [Moles/Vol] 20.5 mmol/L Low 21.0-32.0 [facility] [facility] Chloride assayOrdered By: Fernando Johnson on 11-28-2024 Chloride [Moles/Vol] 102 mmol/L 98-108 [facility] Eosinophil percentageOrdered By: Ochoa Johnson on 11-28-2024 Eosinophils/100 WBC (Bld) 1.7 % 0-5 [facility] Erythrocyte distribution wid th ratioOrdered By: Ochoa Johnson on 11-28-2024 Erythrocyte distribution width (RBC) [Ratio] 17.9 % High 11.6-14.6 [facility] Erythrocyte distribution wid th standard deviationOrdered By: Ochoa Johnson on 11-28-2024 Erythrocyte distribution width (RBC) [Ratio] 51.1 fl High 35.1-43.9 [facility] Glomerular filtration rate ( GFR) estimation/1.73 sq m using serum, plasma, or whole bOrdered By: Ochoa Johnson on 11-28-2024 GFR/1.73 sq M.predicted among non-blacks MDRD (S/P/Bld) [Vol rate/Area] 67 mL/min/{1.73_m2} >60 [facility] Glucose measurement at bedsi deOrdered By: Ochoa Johnson on 11-28-2024 Glucose [Mass/Vol] 223 mg/dL High 74-106 [facility] Hematocrit Auto (Bld) [Volum e fraction]Ordered By: Ochoa Johnson on 11-28-2024 Hematocrit (Bld) [Volume fraction] 27.4 % Low 40-54 [facility] Hemoglobin measurementOrdere d By: Ochoa Johnson on 11-28-2024 Hemoglobin (Bld) [Mass/Vol] 8.6 g/dL Low 13.0-16.5 [facility] Immature granulocytes/100 WB C Auto (Bld)Ordered By: Ochoa Johnson on 11-28-2024 Immature granulocytes/100 WBC (Bld) 0.900 % 0.0-0.9 [facility] MCV (mean corpuscular volume ) determinationOrdered By: Ochoa Johnson on 11-28-2024 MCV (RBC) [Entitic vol] 77.4 fL Low 80-94 [facility] Mean corpuscular hemoglobin (MCH) determinationOrdered By: Ochoa Johnson on 11-28-2024 MCH (RBC) [Entitic mass] 24.3 pg Low 27.0-32.0 [facility] Monocyte percentageOrdered B y: Ochoa Johnson on 11-28-2024 Monocytes/100 WBC (Bld) 7.9 % 0-10 [facility] Neutrophil percentageOrdered By: Ochoa Johnson on 11-28-2024 Neutrophils/100 WBC (Bld) 78.0 % High 47-70 [facility] Platelet countOrdered By: Fernando Johnson on 11-28-2024 Platelets (Bld) [#/Vol] 195 10*3/uL 150-450 [facility] Potassium measurement (mass/ volume)Ordered By: Ochoa Johnson on 11-28-2024 Potassium (Unsp spec) [Mass/Vol] 3.8 mmol/L 3.3-5.1 [facility] RBC Auto (Bld) [#/Vol]Ordere d By: Ochoa Johnson on 11-28-2024 RBC (Bld) [#/Vol] 3.54 10*6/uL Low 4.6-6.2 [facility] Serum creatinine measurement (mass/volume)Ordered By: Ochoa Johnson on 11-28-2024 Creatinine [Mass/Vol] 1.23 mg/dL High 0.70-1.20 [facility] Serum glucose measurement (m ass/volume)Ordered By: Ochoa Johnson on 11-28-2024 Glucose [Mass/Vol] 242 mg/dL High 70-99 [facility] Serum or plasma calcium grazyna urement (mass/volume)Ordered By: Ochoa Johnson on 11-28-2024 Calcium [Mass/Vol] 9.0 mg/dL 7.6-11.0 [facility] Serum or plasma urea nitroge n measurement (mass/volume)Ordered By: Ochoa Johnson on 11-28-2024 Urea nitrogen [Mass/Vol] 26 mg/dL High 4-19 [facility] Sodium levelOrdered By: Ochoa Johnson on 11-28-2024 Sodium [Moles/Vol] 135 mmol/L 133-145 [facility] Vancomycin, Trough Levelon 0 11-28-2024 VANCO, TROUGH 16.7 ug/mL High 5.0-15.0 [facility] Comment on above: Order Comment: Comme nts: DRAW 30 MIN PRIOR TO [id number] Result Comment: Luciano mmended goal trough ranges [...] therapy recommended for serious lifethreatening infections include:- Gwasycjjkr-Msmqjhrubqdc-Qffrdxukf (Ventilator/Healtcare Associated)-SepsisPLEASE CONTACT PHARMACY SERVICES (#3947) FOR INTERPRETATIONOF RESULTS. Performed By: #### L 770.4267 ####[facility] [address] [place], [address] White blood cell (WBC) count Ordered By: Ochoa Johnson on 08-30-2025 WBC (Bld) [#/Vol] 11.5 10*3/uL High 4.4-11.0 [facility] Basic Metabolic Profile (BMP )on 11-27-2024 BUN/CRE 21.5 RATIO High 10-20 [facility] Comment on above: Performed By: #### L 100.0100, L501.9985, L500.2500 ####[facility] [address] [place], [address] Calcium [Mass/Vol] 9.0 mg/dL Normal 7.6-11.0 [facility] Comment on above: Performed By: #### L 100.0100, L501.9985, L500.2500 ####[facility] [address] [place], [address] Chloride [Moles/Vol] 104 mmol/L Normal 98-108 [facility] Comment on above: Performed By: #### L 100.0100, L501.9985, L500.2500 ####[facility] [address] [place], [address] CO2 [Moles/Vol] 22.2 mmol/L Normal 21.0-32.0 [facility] Comment on above: Performed By: #### L 100.0100, L501.9985, L500.2500 ####[facility] [address] [place], [address] Creatinine [Mass/Vol] 1.37 mg/dL High 0.70-1.20 [facility] Comment on above: Performed By: #### L 100.0100, L501.9985, L500.2500 ####[facility] [address] [place], [address] ECRCL 81.35 ml/min Normal 50-250 [facility] Comment on above: Performed By: #### L 100.0100, L501.9985, L500.2500 ####[facility] [address] [place], [address] GAP 11 Normal 5-15 [facility] Comment on above: Performed By: #### L 100.0100, L501.9985, L500.2500 ####[facility] [address] [place], [address] GFR/1.73 sq M.predicted among non-blacks MDRD (S/P/Bld) [Vol rate/Area] 59 mL/min/{1.73_m2} Low >60 [facility] Comment on above: Result Comment: mL/m in/1.73m2 CKD-EPI Creatinine Equation (2020) Performed By: #### L 100.0100, L501.9985, L500.2500 ####[facility] [address] [place], [address] Glucose [Mass/Vol] 203 mg/dL High 70-99 [facility] Comment on above: Performed By: #### L 100.0100, L501.9985, L500.2500 ####[facility] [address] [place], [address] Potassium [Moles/Vol] 3.8 mmol/L Normal 3.3-5.1 [facility] Comment on above: Performed By: #### L 100.0100, L501.9985, L500.2500 ####[facility] [address] [place], [address] Sodium [Moles/Vol] 137 mmol/L Normal 133-145 [facility] Comment on above: Performed By: #### L 100.0100, L501.9985, L500.2500 ####[facility] [address] [place], [address] Urea nitrogen [Mass/Vol] 29 mg/dL High 4-19 [facility] Comment on above: Performed By: #### L 100.0100, L501.9985, L500.2500 ####[facility] [address] [place], [address] Bedside Glucoseon 11-27-2024 FINGERSTICK GLU 397 mg/dL High [address] [place] [address] Comment on above: Result Comment: ANI GEMENT OF PATIENT CARE PER NURSING PROTOCOL Performed By: #### L 501.080 ####[facility] [address] [place], [address] FINGERSTICK GLU 241 mg/dL High [address] [place] [address] Comment on above: Result Comment: ANI GEMENT OF PATIENT CARE PER NURSING PROTOCOL Performed By: #### L 501.080 ####[facility] [address] [place], [address] FINGERSTICK GLU 436 mg/dL High [address] [place] [address] Comment on above: Result Comment: ANI GEMENT OF PATIENT CARE PER NURSING PROTOCOL Performed By: #### L 501.080 ####[facility] [address] [place], [address] FINGERSTICK GLU 181 mg/dL High [address] [place] [address] Comment on above: Result Comment: ANI GEMENT OF PATIENT CARE PER NURSING PROTOCOL Performed By: #### L 501.080 ####[facility] [address] [place], [address] FINGERSTICK GLU 467 mg/dL Invalid Interpretation Code -[address] [place] [address] Comment on above: Result Comment: Dr Melisa maharaj FollowedMANAGEMENT OF PATIENT CARE PER NURSING PROTOCOL Performed By: #### L 501.080 ####[facility] [address] [place], [address] CBC W/Diff, Automatedon 10-31 Absolute Lymph 1.63 X10 3/uL Normal 0.83-4.51 [facility] Comment on above: Performed By: #### L 100.0100, L501.9985, L500.2500 ####[facility] [address] [place], [address] Absolute Neut 9.4 X10 3/uL High 2.0-7.7 [facility] Comment on above: Performed By: #### L 100.0100, L501.9985, L500.2500 ####[facility] [address] [place], [address] Basophils/100 WBC (Bld) 0.3 % Normal 0-1 [facility] Comment on above: Performed By: #### L 100.0100, L501.9985, L500.2500 ####[facility] [address] [place], [address] Eosinophils/100 WBC (Bld) 1.2 % Normal 0-5 [facility] Comment on above: Performed By: #### L 100.0100, L501.9985, L500.2500 ####[facility] [address] [place], [address] Erythrocyte distribution width (RBC) [Ratio] 18.6 % High 11.6-14.6 [facility] Comment on above: Performed By: #### L 100.0100, L501.9985, L500.2500 ####[facility] [address] [place], [address] Hematocrit (Bld) [Volume fraction] 28.5 % Low 40-54 [facility] Comment on above: Performed By: #### L 100.0100, L501.9985, L500.2500 ####[facility] [address] [place], [address] Hemoglobin (Bld) [Mass/Vol] 8.9 g/dL Low 13.0-16.5 [facility] Comment on above: Performed By: #### L 100.0100, L501.9985, L500.2500 ####[facility] [address] [place], [address] IG% 0.800 Normal 0.0-0.9 [facility] Comment on above: Result Comment: IG% - Immature Granulocytes (promyelocytes, myelocytes andmetamyelocytes) > 1% indicates that a LEFT SHIFT is Present. Performed By: #### L 100.0100, L501.9985, L500.2500 ####[facility] [address] [place], [address] Lymphocytes/100 WBC (Bld) 13.0 % Low 19-41 [facility] Comment on above: Performed By: #### L 100.0100, L501.9985, L500.2500 ####[facility] [address] [place], [address] MCH (RBC) [Entitic mass] 24.3 pg Low 27.0-32.0 [facility] Comment on above: Performed By: #### L 100.0100, L501.9985, L500.2500 ####[facility] [address] [place], [address] MCHC (RBC) [Mass/Vol] 31.2 g/dL Low 32-36 [facility] Comment on above: Performed By: #### L 100.0100, L501.9985, L500.2500 ####[facility] [address] [place], [address] MCV (RBC) [Entitic vol] 77.9 fL Low 80-94 [facility] Comment on above: Performed By: #### L 100.0100, L501.9985, L500.2500 ####[facility] [address] [place], [address] Monocytes/100 WBC (Bld) 10.3 % High 0-10 [facility] Comment on above: Performed By: #### L 100.0100, L501.9985, L500.2500 ####[facility] [address] [place], [address] Neutrophils/100 WBC (Bld) 74.4 % High 47-70 [facility] Comment on above: Performed By: #### L 100.0100, L501.9985, L500.2500 ####[facility] [address] [place], [address] Nucleated RBC (Bld) [#/Vol] 0 10*3/uL Normal 0-5 [facility] Comment on above: Performed By: #### L 100.0100, L501.9985, L500.2500 ####[facility] [address] [place], [address] Platelet mean volume (Bld) [Entitic vol] 10.0 fL Normal 6.2-12.0 [facility] Comment on above: Performed By: #### L 100.0100, L501.9985, L500.2500 ####[facility] [address] [place], [address] Platelets (Bld) [#/Vol] 191 10*3/uL Normal 150-450 [facility] Comment on above: Performed By: #### L 100.0100, L501.9985, L500.2500 ####[facility] [address] [place], [address] RBC (Bld) [#/Vol] 3.66 10*6/uL Low 4.6-6.2 [facility] Comment on above: Performed By: #### L 100.0100, L501.9985, L500.2500 ####[facility] [address] [place], [address] RDW SD 51.8 fl High 35.1-43.9 [facility] Comment on above: Performed By: #### L 100.0100, L501.9985, L500.2500 ####[facility] [address] [place], [address] WBC (Bld) [#/Vol] 12.6 10*3/uL High 4.4-11.0 [facility] Comment on above: Performed By: #### L 100.0100, L501.9985, L500.2500 ####[facility] [address] [place], [address] Hemoglobin A1con 11-27-2024 HbA1c (Bld) [Mass fraction] 9.6 % High <=5.6 [facility] Comment on above: Result Comment: Norm al < 5.7 % Prediabetic 5.7 - 6.4 % Diabetic >or= 6.5 % Please note range changes. Performed By: #### L 100.0100, L501.9985, L500.2500 ####[facility] [address], [address] Hemoglobin A1c percentageOrd ered By: Ochoa Johnson on 11-27-2024 HbA1c (Bld) [Mass fraction] 9.6 % High <5.7 [facility] Trough vancomycin levelOrder ed By: Ochoa Johnson on 11-27-2024 Vancomycin trough [Mass/Vol] 16.7 ug/mL High 5.0-15.0 [facility] 12 Lead EKGon 11-26-2024 12 Lead EKG Normal [facility] Absolute lymphocyte countOrd ered By: Betina Martinez on 11-26-2024 Lymphocytes Auto (Unsp spec) [#/Vol] 1.67 10*3/uL 0.83-4.51 [facility] Anion gap in Serum or Plasma Ordered By: Betina Martinez on 11-26-2024 Anion gap [Moles/Vol] 15 mmol/L 5-15 [facility] Automated lymphocyte count a s percentage of total leukocytesOrdered By: Betina Martinez on 11-26-2024 Lymphocytes/100 WBC Auto (Unsp spec) 8.9 % Low 19-41 [facility] BUN/creatinine ratioOrdered By: Betina Martinez on 11-26-2024 Urea nitrogen/Creatinine [Mass ratio] 20.6 mg/mg High 10-20 [facility] Basophil percentageOrdered B y: Betina Martinez on 11-26-2024 Basophils/100 WBC (Bld) 0.3 % 0-1 [facility] Bedside Glucoseon 11-26-2024 FINGERSTICK GLU 384 mg/dL High 74-106 [facility] Comment on above: Result Comment: ANI BRADFORD OF PATIENT CARE PER NURSING PROTOCOL Performed By: #### L 501.080 ####[facility] [address] [place], [place], [id number] Bilirubin Test strip Ql (U)O rdered By: Betina Martinez on 11-26-2024 Bilirubin Ql (U) Negative Negative [facility] Bilirubin, totalOrdered By: Betina Martinez on 11-26-2024 Bilirubin [Mass/Vol] 0.71 mg/dL 0.00-1.30 [facility] Blood cultureOrdered By: [place] Martinez on 11-26-2024 Bacteria identified Cx Nom (Bld) No growth in 5 days. [facility] Bacteria identified Cx Nom (Bld) No growth in 5 days. [facility] Brain/Head without Contrasto n 11-26-2024 Brain/Head without Contrast Normal [facility] CBC W/Diff, Automatedon - OVALOCYTE 1+ Normal [facility] Comment on above: Performed By: #### L 500.4050, L100.0100, M200.1000, L503.6005, L501.4021 ####[facility] [address] [place], [place], [phone] PLT EST ADEQUATE Normal ADEQ [facility] Comment on above: Performed By: #### L 500.4050, L100.0100, M200.1000, L503.6005, L501.4021 ####[facility] [address] [place], [address] CO2 (BldV) [Moles/Vol]Ordere d By: Betina Martinez on 11-26-2024 CO2 [Moles/Vol] 26 mmol/L 23-33 [facility] Carbon dioxide, total [Moles /volume] in Central venous bloodOrdered By: Betina Penger on 11-26-2024 CO2 [Moles/Vol] 23.3 mmol/L 21.0-32.0 [facility] Chest PA and Lateralon 11-26 Chest PA and Lateral Normal [facility] Chloride assayOrdered By: Fernando tiffanie Juan on 11-26-2024 Chloride [Moles/Vol] 96 mmol/L Low 98-108 [facility] Comprehensive Metabolic Prof ilon 11-26-2024 Albumin [Mass/Vol] 3.7 g/dL Normal 3.4-4.8 [facility] Comment on above: Performed By: #### L 500.4050, L100.0100, M200.1000, L503.6005, L501.4021 ####[facility] [address] [place], [address] Albumin/Globulin [Mass ratio] 1.1 {ratio} Normal 0.9-2.4 [facility] Comment on above: Performed By: #### L 500.4050, L100.0100, M200.1000, L503.6005, L501.4021 ####[facility] [address] [place], [address] ALK PHOS 58 U/L Normal 40-129 [facility] Comment on above: Performed By: #### L 500.4050, L100.0100, M200.1000, L503.6005, L501.4021 ####[facility] [address] [place], [address] ALT [Catalytic activity/Vol] 18 U/L Normal <=46 [facility] Comment on above: Performed By: #### L 500.4050, L100.0100, M200.1000, L503.6005, L501.4021 ####[facility] [address] [place], [address] AST [Catalytic activity/Vol] 13 U/L Normal <=37 [facility] Comment on above: Performed By: #### L 500.4050, L100.0100, M200.1000, L503.6005, L501.4021 ####[facility] [address] [place], [address] Bilirubin [Mass/Vol] 0.71 mg/dL Normal 0.00-1.30 [facility] Comment on above: Performed By: #### L 500.4050, L100.0100, M200.1000, L503.6005, L501.4021 ####[facility] [address] [place], [address] BUN/CRE 20.6 RATIO High 10-20 [facility] Comment on above: Performed By: #### L 500.4050, L100.0100, M200.1000, L503.6005, L501.4021 ####[facility] [address] [place], [address] Calcium [Mass/Vol] 9.1 mg/dL Normal 7.6-11.0 [facility] Comment on above: Performed By: #### L 500.4050, L100.0100, M200.1000, L503.6005, L501.4021 ####[facility] [address] [place], [address] Chloride [Moles/Vol] 96 mmol/L Low 98-108 [facility] Comment on above: Performed By: #### L 500.4050, L100.0100, M200.1000, L503.6005, L501.4021 ####[facility] [address] [place], [address] CO2 [Moles/Vol] 23.3 mmol/L Normal 21.0-32.0 [facility] Comment on above: Performed By: #### L 500.4050, L100.0100, M200.1000, L503.6005, L501.4021 ####[facility] [address] [place], [address] Creatinine [Mass/Vol] 2.06 mg/dL High 0.70-1.20 [facility] Comment on above: Performed By: #### L 500.4050, L100.0100, M200.1000, L503.6005, L501.4021 ####[facility] [address] [place], [address] ECRCL 53.51 ml/min Normal 50-250 [facility] Comment on above: Performed By: #### L 500.4050, L100.0100, M200.1000, L503.6005, L501.4021 ####[facility] [address] [place], [address] GAP 15 Normal 5-15 [facility] Comment on above: Performed By: #### L 500.4050, L100.0100, M200.1000, L503.6005, L501.4021 ####[facility] [address] [place], [address] GFR/1.73 sq M.predicted among non-blacks MDRD (S/P/Bld) [Vol rate/Area] 36 mL/min/{1.73_m2} Low >60 [facility] Comment on above: Result Comment: mL/m in/1.73m2 CKD-EPI Creatinine Equation (2020) Performed By: #### L 500.4050, L100.0100, M200.1000, L503.6005, L501.4021 ####[facility] [address] [place], [address] Globulin (S) [Mass/Vol] 3.5 g/dL Normal 2.2-4.2 [facility] Comment on above: Performed By: #### L 500.4050, L100.0100, M200.1000, L503.6005, L501.4021 ####[facility] [address] [place], [address] Glucose [Mass/Vol] 336 mg/dL High 70-99 [facility] Comment on above: Performed By: #### L 500.4050, L100.0100, M200.1000, L503.6005, L501.4021 ####[facility] [address] [place], [address] Potassium [Moles/Vol] 3.8 mmol/L Normal 3.3-5.1 [facility] Comment on above: Performed By: #### L 500.4050, L100.0100, M200.1000, L503.6005, L501.4021 ####[facility] [address] [place], [address] Sodium [Moles/Vol] 135 mmol/L Normal 133-145 [facility] Comment on above: Performed By: #### L 500.4050, L100.0100, M200.1000, L503.6005, L501.4021 ####[facility] [address] [place], [address] T PROT 7.2 g/dL Normal 5.9-8.4 [facility] Comment on above: Performed By: #### L 500.4050, L100.0100, M200.1000, L503.6005, L501.4021 ####[facility] [address] [place], [address] Urea nitrogen [Mass/Vol] 42 mg/dL High 4-19 [facility] Comment on above: Performed By: #### L 500.4050, L100.0100, M200.1000, L503.6005, L501.4021 ####[facility] [address] [place], [address] Emergency Department Summary on 11-26-2024 Emergency Department Summary Normal [facility] Eosinophil percentageOrdered By: Betina Juan on 11-26-2024 Eosinophils/100 WBC (Bld) 0.4 % 0-5 [facility] Erythrocyte distribution wid th ratioOrdered By: Betina Martinez on 11-26-2024 Erythrocyte distribution width (RBC) [Ratio] 18.7 % High 11.6-14.6 [facility] Erythrocyte distribution wid th standard deviationOrdered By: Betina Martinez on 11-26-2024 Erythrocyte distribution width (RBC) [Ratio] 51.3 fl High 35.1-43.9 [facility] Glomerular filtration rate ( GFR) estimation/1.73 sq m using serum, plasma, or whole bOrdered By: Betina Martinez on 11-26-2024 GFR/1.73 sq M.predicted among non-blacks MDRD (S/P/Bld) [Vol rate/Area] 36 mL/min/{1.73_m2} Low >60 [facility] H AND P Exam - Hospitaliston 11-26-2024 H&P Exam - Hospitalist Normal [facility] Hematocrit Auto (Bld) [Volum e fraction]Ordered By: Betina Martinez on 11-26-2024 Hematocrit (Bld) [Volume fraction] 32.0 % Low 40-54 [facility] Hemoglobin measurementOrdere d By: Betina Martinez on 11-26-2024 Hemoglobin (Bld) [Mass/Vol] 10.0 g/dL Low 13.0-16.5 [facility] Immature granulocytes/100 WB C Auto (Bld)Ordered By: Betina Martinez on 11-26-2024 Immature granulocytes/100 WBC (Bld) 1.100 % High 0.0-0.9 [facility] Influenza virus A and B and SARS-CoV-2 (COVID-19) and Respiratory syncytial virus RNAOrdered By: Betina Martinez on 11-26-2024 SARS-CoV-2 (COVID-19) RNA FLORES+probe Ql (Unsp spec) [facility] Ketones Test strip Ql (U)Ord ered By: Betina Martinez on 11-26-2024 Ketones Ql (U) Negative Negative [facility] L501.4021on 11-26-2024 Trop T High Sen 59 ng/L Invalid Interpretation Code <=22 [facility] Comment on above: Result Comment: Crit ical Result(s) Called at 1057: by: LUIZ RODRIGUEZ. ??Results read back by same. Performed By: #### L 500.4050, L100.0100, M200.1000, L503.6005, L501.4021 ####[facility] [address] [place], [address] Lactic Acidon 11-26-2024 Lactate [Moles/Vol] mmol/L Normal 0.0-2.0 [facility] Comment on above: Order Comment: Comme nts: if result >2, system reflex orders 2nd test @ 4hrsY Performed By: #### L 503.6005 ####[facility] [address] [place], [address] Lactate [Moles/Vol] 1.8 mmol/L Normal 0.0-2.0 [facility] Comment on above: Order Comment: Y Performed By: #### L 500.4050, L100.0100, M200.1000, L503.6005, L501.4021 ####[facility] [address] [place], [address] M100.678on 11-26-2024 M100.678 Normal Reference Ran ge = Negative GeneXpert Instrument, PCR method SARS-CoV-2 (COVID 19) Negative INFLUENZA A Negative INFLUENZA B Negative RSV PCR Negative Normal [facility] Comment on above: Performed By: #### M 100.678 ####[facility] [address] [place], [address] MCV (mean corpuscular volume ) determinationOrdered By: Betina Martinez on 11-26-2024 MCV (RBC) [Entitic vol] 77.3 fL Low 80-94 [facility] Mean corpuscular hemoglobin (MCH) determinationOrdered By: Betina Martinez on 11-26-2024 MCH (RBC) [Entitic mass] 24.2 pg Low 27.0-32.0 [facility] Monocyte percentageOrdered B y: Betina Martinez on 11-26-2024 Monocytes/100 WBC (Bld) 12.8 % High 0-10 [facility] Mucus LM Ql (Urine sed)Order ed By: Betina Martinez on 11-26-2024 Mucus Ql (Urine sed) 0 SEEN /hpf [facility] Neutrophil percentageOrdered By: Betina Martinez on 11-26-2024 Neutrophils/100 WBC (Bld) 76.5 % High 47-70 [facility] Nitrite Test strip Ql (U)Ord ered By: Betina Martinez on 11-26-2024 Nitrite Ql (U) Negative Negative [facility] No Panel InformationOrdered By: Betina Martinez on 11-26-2024 JOSHUA [facility] Not entered [facility] 13 U/L <38 [facility] Ovalocyte detectionOrdered B y: Betina Martinez on 11-26-2024 Ovalocytes LM Ql (Bld) 1+ [facility] Pelvis 1 or 2 Viewson 2024 Pelvis 1 or 2 Views Normal [facility] Platelet countOrdered By: Fernando Martinez on 11-26-2024 Platelets (Bld) [#/Vol] 246 10*3/uL 150-450 [facility] Platelet estimateOrdered By: Betina Martinez on 11-26-2024 Platelets LM Ql (Bld) ADEQUATE ADEQ [facility] Potassium measurement (mass/ volume)Ordered By: Betina Martinez on 11-26-2024 Potassium (Unsp spec) [Mass/Vol] 3.8 mmol/L 3.3-5.1 [facility] Protein Test strip Ql (U)Ord ered By: Betina Martinez on 11-26-2024 Protein Ql (U) 15 mg/dl High Negative [facility] RBC Auto (Bld) [#/Vol]Ordere d By: Betina Martinez on 11-26-2024 RBC (Bld) [#/Vol] 4.14 10*6/uL Low 4.6-6.2 [facility] Serum creatinine measurement (mass/volume)Ordered By: Betina Martinez on 11-26-2024 Creatinine [Mass/Vol] 2.06 mg/dL High 0.70-1.20 [facility] Serum globulin measurementOr dered By: Betina Martinez on 11-26-2024 Globulin (S) [Mass/Vol] 3.5 g/dL 2.2-4.2 [facility] Serum glucose measurement (m ass/volume)Ordered By: Betina Martinez on 11-26-2024 Glucose [Mass/Vol] 336 mg/dL High 70-99 [facility] Serum or plasma alanine briscoe otransferase (ALT) measurementOrdered By: Betina Martinez on 11-26-2024 ALT [Catalytic activity/Vol] 18 U/L <47 [facility] Serum or plasma albumin grazyna urement (mass/volume)Ordered By: Betina Martinez on 11-26-2024 Albumin [Mass/Vol] 3.7 g/dL 3.4-4.8 [facility] Serum or plasma albumin/glob ulin mass ratioOrdered By: Betina Martinez on 11-26-2024 Albumin/Globulin [Mass ratio] 1.1 {ratio} 0.9-2.4 [facility] Serum or plasma alkaline benjamin sphatase measurementOrdered By: Betina Martinez on 11-26-2024 ALP [Catalytic activity/Vol] 58 U/L 40-129 [facility] Serum or plasma calcium grazyna urement (mass/volume)Ordered By: Betina Martinez on 11-26-2024 Calcium [Mass/Vol] 9.1 mg/dL 7.6-11.0 [facility] Serum or plasma urea nitroge n measurement (mass/volume)Ordered By: Betina Martinez on 11-26-2024 Urea nitrogen [Mass/Vol] 42 mg/dL High 4-19 [facility] Sodium levelOrdered By: Ochoa Martinez on 11-26-2024 Sodium [Moles/Vol] 135 mmol/L 133-145 [facility] Spine Cervical without Contr ason 11-26-2024 Spine Cervical without Contras Normal [facility] Squamous epithelial cells de tection in urine sediment by light microscopyOrdered By: Betina Martinez on 11-26-2024 Epithelial cells.squamous LM Ql (Urine sed) 0-5 SEEN /hpf 0-5 [facility] Total proteinOrdered By: Indiana Martinez on 11-26-2024 Protein [Mass/Vol] 7.2 g/dL 5.9-8.4 [facility] Troponin T HS 2 HRon 025 Trop T High Sen 52 ng/L High <=22 [facility] Comment on above: Performed By: #### L 499.0042 ####[facility] [address] [place], [address] Troponin T HS 4 HRon 025 Trop T High Sen 51 ng/L High <=22 [facility] Comment on above: Performed By: #### L 499.0043 ####[facility] [address] [place], [address] Troponin T.cardiac [Mass/vol ume] in Serum or Plasma by High sensitivity methodOrdered By: Betina Martinez on 11-26-2024 Troponin T.cardiac High sensitivity method [Mass/Vol] 51 ng/L High <22 [facility] Troponin T.cardiac High sensitivity method [Mass/Vol] 52 ng/L High <22 [facility] Troponin T.cardiac High sensitivity method [Mass/Vol] 59 ng/L Critically high <22 [facility] Urinalysis, Completeon 11-26 EPI,SQUAMOUS 0-5 SEEN Normal 0-5 [facility] Comment on above: Order Comment: FAM TER SPECIMEN Performed By: #### M 100.2200, L400.0001 ####[facility] [address] [place], [address] BACTERIA 0 SEEN Normal None Seen [facility] Comment on above: Order Comment: FAM TER SPECIMEN Performed By: #### M 100.2200, L400.0001 ####[facility] [address] [place], [address] Mucus Ql (Urine sed) 0 SEEN Normal [facility] Comment on above: Order Comment: FAM TER SPECIMEN Performed By: #### M 100.2200, L400.0001 ####[facility] [address] [place], [address] RBC 0 SEEN Normal 0-5 [facility] Comment on above: Order Comment: FAM TER SPECIMEN Performed By: #### M 100.2200, L400.0001 ####[facility] [address] [place], [address] WBC 0 SEEN Normal 0-5 [facility] Comment on above: Order Comment: FAM TER SPECIMEN Performed By: #### M 100.2200, L400.0001 ####[facility] [address] [place], [address] Urine clarityOrdered By: Indiana Martinez on 11-26-2024 Clarity (U) Clear Clear [facility] Urine color determinationOrd ered By: Betina Martinez on 11-26-2024 Color (U) Yellow Yellow [facility] Urine cultureOrdered By: Indiana Martinez on 11-26-2024 Bacteria identified Cx Nom (U) Streptococcus agalactiae (B) Abnormal [facility] Bacteria identified Cx Nom (U) Positive Abnormal [facility] Urine glucose detectionOrder ed By: Betina Martinez on 11-26-2024 Glucose Ql (U) 1000 mg/dl High Normal [facility] Urine leukocyte esterase det ection by dipstickOrdered By: Betina Martinez on 11-26-2024 Leukocyte esterase Test strip Ql (U) Negative Negative [facility] Urine pHOrdered By: Betina otero on 11-26-2024 pH (U) 6.0 [pH] 5.0 - 8.0 [facility] Urine sediment bacteria coun t by microscopy (number/high power field)Ordered By: Betina Martinez on 11-26-2024 Bacteria LM.HPF (Urine sed) [#/Area] 0 /[HPF] None Seen [facility] Urine specific gravity measu rementOrdered By: Betina Martinez on 11-26-2024 Specific gravity (U) [Rel density] 1.015 1.002-1.030 [facility] Urine urobilinogen measureme ntOrdered By: Betina Martinez on 11-26-2024 Urobilinogen Ql (U) Normal mg/dl Normal [facility] Venous Blood Gason 5 Blood Gas Type JOSHUA Normal [facility] Comment on above: Performed By: #### L 9000.0810 ####[facility] [address] [place], [address] CO2 [Moles/Vol] 26 mmol/L Normal 23-33 [facility] Comment on above: Performed By: #### L 9000.0810 ####[facility] [address] [place], [address] HCO3 (Bld) [Moles/Vol] 25 mmol/L Normal 22-26 [facility] Comment on above: Performed By: #### L 900.0810 ####[facility] [address] [place], [address] O2 Delivery Dev Not entered Normal [facility] Comment on above: Performed By: #### L 9000.0810 ####[facility] [address] [place], [address] SITE Not entered Normal [facility] Comment on above: Performed By: #### L 9000.0810 ####[facility] [address] [place], [address] VBG BE 1 mmol/L Normal -1.0-3.5 [facility] Comment on above: Performed By: #### L 9000.0810 ####[facility] [address] [place], [address] VBG pCO2 37.0 mmHg Low 41-51 [facility] Comment on above: Performed By: #### L 9000.0810 ####[facility] [address] [place], [address] VBG pH 7.44 High 7.32-7.42 [facility] Comment on above: Performed By: #### L 9000.0810 ####[facility] [address] [place], [address] VBG PO2 40 mmHg Normal 25-40 [facility] Comment on above: Performed By: #### L 9000.0810 ####[facility] [address] [place], [address] VBG SO2 77 High 50-70 [facility] Comment on above: Performed By: #### L 9000.0810 ####[facility] [address] [place], [address] Venous blood base excess elizabeth surementOrdered By: Betina Martinez on 11-26-2024 Base excess Calc (BldV) [Moles/Vol] 1 mmol/L -1.0-3.5 [facility] Venous blood bicarbonate elizabeth surementOrdered By: Betina Martinez on 11-26-2024 HCO3 (Bld) [Moles/Vol] 25 mmol/L 22-26 [facility] Venous blood pH measurementO rdered By: Betina Martinez on 11-26-2024 pH (BldV) 7.44 [pH] High 7.32-7.42 [facility] Venous blood partial pressur e of carbon dioxide measurementOrdered By: Betina Martinez on 11-26-2024 CO2 (BldV) [Partial pressure] 37.0 mm[Hg] Low 41-51 [facility] Venous blood partial pressur e of oxygen measurementOrdered By: Betina Martinez on 11-26-2024 Oxygen (BldV) [Partial pressure] 40 mm[Hg] 25-40 [facility] White blood cell (WBC) count Ordered By: Betina Martinez on 11-26-2024 WBC (Bld) [#/Vol] 18.7 10*3/uL High 4.4-11.0 [facility] White blood cell countOrdere d By: Betina Martinez on 11-26-2024 White blood cell count 0 SEEN /hpf 0-5 [facility] Pulmonary Visit Reporton Pulmonary Visit Report Normal [facility] HEPATIC FUNCTION PANELon Albumin [Mass/Vol] 4.1 g/dL Normal 3.6-5.1 [facility] Comment on above: Performed By: #### 1 0256 #### [facility] [place] [address] Studio Operator: Octavio Segovia MD Albumin/Globulin [Mass ratio] 1.3 {ratio} Normal 1.0-2.5 [facility] Comment on above: Performed By: #### 1 0256 #### [facility] [place] [address] Studio Operator: Octavio Segovia MD ALP [Catalytic activity/Vol] 51 U/L Normal 35-144 [facility] Comment on above: Performed By: #### 1 0256 #### [facility] [place] [address] Studio Operator: Octavio Segovia MD ALT [Catalytic activity/Vol] 21 U/L Normal 9-46 [facility] Comment on above: Performed By: #### 1 0256 #### [facility] [place] [address] Studio Operator: Octavio Segovia MD AST [Catalytic activity/Vol] 19 U/L Normal 10-35 [facility] Comment on above: Performed By: #### 1 0256 #### [facility] [place] [address] Studio Operator: Octavio Segovia MD Bilirubin [Mass/Vol] 0.6 mg/dL Normal 0.2-1.2 [facility] Comment on above: Performed By: #### 1 0256 #### [facility] [place] [address] Studio Operator: Octavio Segovia MD BILIRUBIN, INDIRECT 0.5 mg/dL (calc) Normal 0.2-1.2 [facility] Comment on above: Performed By: #### 1 0256 #### [facility] [place] [address] Studio Operator: Octavio Segovia MD Bilirubin.indirect [Mass/Vol] 0.1 mg/dL Normal < OR = 0.2 [facility] Comment on above: Performed By: #### 1 0256 #### [facility] of [address], [address] [place] [address] Studio Operator: Octavio Segovia MD Globulin (S) [Mass/Vol] 3.2 g/dL Normal 1.9-3.7 [facility] Comment on above: Performed By: #### 1 0256 #### [facility] of [address], [address] [place] [address] Studio Operator: Octavio Segovia MD Protein [Mass/Vol] 7.3 g/dL Normal 6.1-8.1 [facility] Comment on above: Performed By: #### 1 0256 #### [facility] [address], [address] [place] [address] Studio Operator: Octavio Segovia MD Hepatic function 2000 panelo n 11-24-2024 Albumin [Mass/Vol] 4.1 g/dL 3.6 - 5.1 g/dL [facility] Albumin/Globulin [Mass ratio] 1.3 {ratio} [facility] ALP [Catalytic activity/Vol] 51 U/L 35 - 144 U/L [facility] ALT [Catalytic activity/Vol] 21 U/L 9 - 46 U/L [facility] AST [Catalytic activity/Vol] 19 U/L 10 - 35 U/L [facility] Bilirubin [Mass/Vol] 0.6 mg/dL 0.2 - 1 .2 mg/dL [facility] Bilirubin.direct [Mass/Vol] 0.1 mg/dL < OR = 0.2 [facility] Bilirubin.indirect [Mass/Vol] 0.5 mg/dL [facility] Globulin (S) [Mass/Vol] 3.2 g/dL [facility] Protein [Mass/Vol] 7.3 g/dL 6.1 - 8.1 g/dL [facility] OT D/C Summaryon 11-19-2024 OT D/C Summary Normal [facility] OT D/C of Non Returning Pton 11-19-2024 OT D/C of Non Returning Pt Normal [facility] Office Visit Reporton 2024 Office Visit Report Normal [facility] [employer] Culture/SmearOrdered By: Georgia Mejia on 11-11-2024 Mycobacterium sp identified Org specific cx Nom (Unsp spec) No Mycobacteria isolated. [facility] Mycobacterium sp identified Org specific cx Nom (Unsp spec)Ordered By: Georgia Mejia on 11-11-2024 Microscopic observation Acid fast stain Nom (Unsp spec) No acid fast bacilli seen [facility] Absolute lymphocyte countOrd ered By: Rito Lundberg on 11-03-2024 Lymphocytes Auto (Unsp spec) [#/Vol] 1.23 10*3/uL 0.83-4.51 [facility] Automated lymphocyte count a s percentage of total leukocytesOrdered By: Rito Lundberg on 11-03-2024 Lymphocytes/100 WBC Auto (Unsp spec) 6.4 % Low 19-41 [facility] Basophil percentageOrdered B y: Rito Lundberg on 11-03-2024 Basophils/100 WBC (Bld) 0.6 % 0-1 [facility] CBC W/Diff, Automatedon Absolute Lymph 1.23 X10 3/uL Normal 0.83-4.51 [facility] Comment on above: Performed By: #### L 503.6550, L503.6030, L100.9950, L100.0100 ####[facility] [address] [place], [address] Absolute Neut 15.7 X10 3/uL High 2.0-7.7 [facility] Comment on above: Performed By: #### L 503.6550, L503.6030, L100.9950, L100.0100 ####[facility] [address] [place], [address] Basophils/100 WBC (Bld) 0.6 % Normal 0-1 [facility] Comment on above: Performed By: #### L 503.6550, L503.6030, L100.9950, L100.0100 ####[facility] [address] [place], [address] Eosinophils/100 WBC (Bld) 1.3 % Normal 0-5 [facility] Comment on above: Performed By: #### L 503.6550, L503.6030, L100.9950, L100.0100 ####[facility] [address] [place], [address] Erythrocyte distribution width (RBC) [Ratio] 18.5 % High 11.6-14.6 [facility] Comment on above: Performed By: #### L 503.6550, L503.6030, L100.9950, L100.0100 ####[facility] [address] [place], [address] Hematocrit (Bld) [Volume fraction] 34.6 % Low 40-54 [facility] Comment on above: Performed By: #### L 503.6550, L503.6030, L100.9950, L100.0100 ####[facility] [address] [place], [address] Hemoglobin (Bld) [Mass/Vol] 10.0 g/dL Low 13.0-16.5 [facility] Comment on above: Performed By: #### L 503.6550, L503.6030, L100.9950, L100.0100 ####[facility] [address] [place], [address] IG% 1.500 High 0.0-0.9 [facility] Comment on above: Result Comment: IG% - Immature Granulocytes (promyelocytes, myelocytes andmetamyelocytes) > 1% indicates that a LEFT SHIFT is Present. Performed By: #### L 503.6550, L503.6030, L100.9950, L100.0100 ####[facility] [address] [place], [address] Lymphocytes/100 WBC (Bld) 6.4 % Low 19-41 [facility] Comment on above: Performed By: #### L 503.6550, L503.6030, L100.9950, L100.0100 ####[facility] [address] [place], [address] MCH (RBC) [Entitic mass] 23.7 pg Low 27.0-32.0 [facility] Comment on above: Performed By: #### L 503.6550, L503.6030, L100.9950, L100.0100 ####[facility] [address] [place], [address] MCHC (RBC) [Mass/Vol] 28.9 g/dL Low 32-36 [facility] Comment on above: Performed By: #### L 503.6550, L503.6030, L100.9950, L100.0100 ####[facility] [address] [place], [address] MCV (RBC) [Entitic vol] 82.0 fL Normal 80-94 [facility] Comment on above: Performed By: #### L 503.6550, L503.6030, L100.9950, L100.0100 ####[facility] [address] [place], [address] Monocytes/100 WBC (Bld) 8.6 % Normal 0-10 [facility] Comment on above: Performed By: #### L 503.6550, L503.6030, L100.9950, L100.0100 ####[facility] [address] [place], [address] Neutrophils/100 WBC (Bld) 81.6 % High 47-70 [facility] Comment on above: Performed By: #### L 503.6550, L503.6030, L100.9950, L100.0100 ####[facility] [address] [place], [address] Nucleated RBC (Bld) [#/Vol] 0 10*3/uL Normal 0-5 [facility] Comment on above: Performed By: #### L 503.6550, L503.6030, L100.9950, L100.0100 ####[facility] [address] [place], [address] Platelet mean volume (Bld) [Entitic vol] 9.4 fL Normal 6.2-12.0 [facility] Comment on above: Performed By: #### L 503.6550, L503.6030, L100.9950, L100.0100 ####[facility] [address] [place], [address] Platelets (Bld) [#/Vol] 288 10*3/uL Normal 150-450 [facility] Comment on above: Performed By: #### L 503.6550, L503.6030, L100.9950, L100.0100 ####[facility] [address] [place], [address] RBC (Bld) [#/Vol] 4.22 10*6/uL Low 4.6-6.2 [facility] Comment on above: Performed By: #### L 503.6550, L503.6030, L100.9950, L100.0100 ####[facility] [address] [place], [address] RDW SD 54.4 fl High 35.1-43.9 [facility] Comment on above: Performed By: #### L 503.6550, L503.6030, L100.9950, L100.0100 ####[facility] [address] [place], [address] WBC (Bld) [#/Vol] 19.2 10*3/uL High 4.4-11.0 [facility] Comment on above: Performed By: #### L 503.6550, L503.6030, L100.9950, L100.0100 ####[facility] [address] [place], [place], [id number] Eosinophil percentageOrdered By: Rito Lundberg on 11-03-2024 Eosinophils/100 WBC (Bld) 1.3 % 0-5 [facility] Erythrocyte distribution wid th ratioOrdered By: [facility] on 11-03-2024 Erythrocyte distribution width (RBC) [Ratio] 18.5 % High 11.6-14.6 [facility] Erythrocyte distribution wid th standard deviationOrdered By: [facility] Hospitalearlene Lund[facility] on 11-03-2024 Erythrocyte distribution width (RBC) [Ratio] 54.4 fl High 35.1-43.9 [facility] Ferritinon 11-03-2024 Ferritin [Mass/Vol] 124 ng/mL Normal 37-417 [facility] Comment on above: Performed By: #### L 503.6550, L503.6030, L100.9950, L100.0100 ####[facility] [address] [place], [place], [address] Hematocrit Auto (Bld) [Volum e fraction]Ordered By: Rito Lundberg on 11-03-2024 Hematocrit (Bld) [Volume fraction] 34.6 % Low 40-54 [facility] Hemoglobin measurementOrdere d By: Rito Lundberg on 11-03-2024 Hemoglobin (Bld) [Mass/Vol] 10.0 g/dL Low 13.0-16.5 [facility] Immature granulocytes/100 WB C Auto (Bld)Ordered By: Rito Lundberg on 11-03-2024 Immature granulocytes/100 WBC (Bld) 1.500 % High 0.0-0.9 [facility] Iron measurement (mass/mass) Ordered By: [facility] uLndberg on 11-03-2024 Iron (Unsp spec) [Mass/Mass] 52 ug/dL Low 65-175 [facility] Iron+Iron Binding Capacityon 11-03-2024 Iron [Mass/Vol] 52 ug/dL Low 65-175 [facility] Comment on above: Performed By: #### L 503.6550, L503.6030, L100.9950, L100.0100 ####[facility] [address] [place], [address] IRON SATURATION 13.0 Normal 9-55 [facility] Comment on above: Performed By: #### L 503.6550, L503.6030, L100.9950, L100.0100 ####[facility] [address] [place], [address] TIBC 392 ug/dL Normal 250-450 [facility] Comment on above: Performed By: #### L 503.6550, L503.6030, L100.9950, L100.0100 ####[facility] [address] [place], [address] UIBC 340 ug/dL Normal 228-428 [facility] Comment on above: Performed By: #### L 503.6550, L503.6030, L100.9950, L100.0100 ####[facility] [address] [place], [address] MCV (mean corpuscular volume ) determinationOrdered By: Rito Lundberg on 11-03-2024 MCV (RBC) [Entitic vol] 82.0 fL 80-94 [facility] Mean corpuscular hemoglobin (MCH) determinationOrdered By: Rito Lundberg on 11-03-2024 MCH (RBC) [Entitic mass] 23.7 pg Low 27.0-32.0 [facility] Monocyte percentageOrdered B y: Rito Lundberg on 11-03-2024 Monocytes/100 WBC (Bld) 8.6 % 0-10 [facility] Neutrophil percentageOrdered By: Rito Lundberg on 11-03-2024 Neutrophils/100 WBC (Bld) 81.6 % High 47-70 [facility] No Panel InformationOrdered By: Rito Lundberg on 11-03-2024 340 ug/dL 228-428 [facility] Oncology Visit Reporton Oncology Visit Report Normal [facility] Platelet countOrdered By: Chanell Lundberg on 11-03-2024 Platelets (Bld) [#/Vol] 288 10*3/uL 150-450 [facility] RBC Auto (Bld) [#/Vol]Ordere d By: Rito Lundberg on 11-03-2024 RBC (Bld) [#/Vol] 4.22 10*6/uL Low 4.6-6.2 [facility] Retic Panelon 11-03-2024 IM RET FRACTION 28.30 High 3.00-15.90 [facility] Comment on above: Performed By: #### L 503.6550, L503.6030, L100.9950, L100.0100 ####[facility] [address] [place], [address] RET-HE 26.1 pg Low 30-35 [facility] Comment on above: Performed By: #### L 503.6550, L503.6030, L100.9950, L100.0100 ####[facility] [address] [place], [address] Retic Count 2.34 High 0.5-1.5 [facility] Comment on above: Performed By: #### L 503.6550, L503.6030, L100.9950, L100.0100 ####[facility] [address] [place], [address] Reticulocyte hemoglobin equi valent (RET-He) measurementOrdered By: Rito Lundberg on 11-03-2024 Hemoglobin (Reticulocytes) [Entitic mass] 26.1 pg Low 30-35 [facility] Reticulocytes Auto (Bld) [#/ Vol]Ordered By: Rito Lnudberg on 11-03-2024 Reticulocytes/100 RBC (Bld) 2.34 % High 0.5-1.5 [facility] Serum or plasma ferritin elizabeth surement (mass/volume)Ordered By: Rito Lundberg on 11-03-2024 Ferritin [Mass/Vol] 124 ng/mL 37-417 [facility] Serum or plasma iron saturat ion measurement (mass fraction)Ordered By: Rito Lundberg on 11-03-2024 Iron saturation [Mass fraction] 13.0 % 9-55 [facility] White blood cell (WBC) count Ordered By: Rito Lundberg on 11-03-2024 WBC (Bld) [#/Vol] 19.2 10*3/uL High 4.4-11.0 [facility] 36on 10-27-2024 36 Called pharmacy, the y need additional refills sent in. Will pend and send a request to the provider. Normal [facility] Cardiology Visit Reporton Cardiology Visit Report Normal [facility] SP/HP.SP.Katelyn 10-23-2024 SP/HP.SP.EV Normal [facility] OT General Evaluationon 09-29 OT General Evaluation Normal [facility] Absolute lymphocyte countOrd ered By: Toni Vann on 10-13-2024 Lymphocytes Auto (Unsp spec) [#/Vol] 0.70 10*3/uL Low 0.83-4.51 [facility] Anion gap in Serum or Plasma Ordered By: Toni Vann on 10-13-2024 Anion gap [Moles/Vol] 19 mmol/L High 08-13 [facility] Automated lymphocyte count a s percentage of total leukocytesOrdered By: Toni Vann on 10-13-2024 Lymphocytes/100 WBC Auto (Unsp spec) 5.2 % Low 19-41 [facility] BUN/creatinine ratioOrdered By: Toni Vann on 10-13-2024 Urea nitrogen/Creatinine [Mass ratio] 25.1 mg/mg High 10- [facility] Basic Metabolic Profile (BMP )on 10-13-2024 BUN/CRE 25.1 RATIO High 01-18 [facility] Comment on above: Order Comment: ALBERTO RICO GETS BMP NANCY GETS LIVER AND LIPID MARI ANDFILIZETT GET TSH ANS CBCD Performed By: #### L 500.4100, L500.3400, L100.0100, L506.0400, L501.9520, L500.2500 ####[facility] [address] [place], [address] Calcium [Mass/Vol] 9.2 mg/dL Normal 7.6-11.0 [facility] Comment on above: Order Comment: ALBERTO RICO GETS BMP BADDOUR GETS LIVER AND LIPID [facility] GET TSH ANS CBCD Performed By: #### L 500.4100, L500.3400, L100.0100, L506.0400, L501.9520, L500.2500 ####[facility] [address] [place], [address] Chloride [Moles/Vol] 95 mmol/L Low 98-108 [facility] Comment on above: Order Comment: ALBERTO RICO GETS BMP BADDOUR GETS LIVER AND LIPID [facility] GET TSH ANS CBCD Performed By: #### L 500.4100, L500.3400, L100.0100, L506.0400, L501.9520, L500.2500 ####[facility] [address] [place], [address] CO2 [Moles/Vol] 19.1 mmol/L Low 21.0-32.0 [facility] Comment on above: Order Comment: ALBERTO RICO GETS BMP BADDOUR GETS LIVER AND LIPID [facility] GET TSH ANS CBCD Performed By: #### L 500.4100, L500.3400, L100.0100, L506.0400, L501.9520, L500.2500 ####[facility] [address] [place], [address] Creatinine [Mass/Vol] 1.89 mg/dL High 0.70-1.20 [facility] Comment on above: Order Comment: ALBERTO RICO GETS BMP BADDOUR GETS LIVER AND LIPID MARI ANDFIKE GET TSH ANS CBCD Performed By: #### L 500.4100, L500.3400, L100.0100, L506.0400, L501.9520, L500.2500 ####[facility] [address] [place], [place], [id number] GAP 19 High 5-15 [facility] Comment on above: Order Comment: ALBERTO RICO GETS BMP BADDOUR GETS LIVER AND LIPID MARI ANDFIKE GET TSH ANS CBCD Performed By: #### L 500.4100, L500.3400, L100.0100, L506.0400, L501.9520, L500.2500 ####[facility] [address] [place], [place], [id number] GFR/1.73 sq M.predicted among non-blacks MDRD (S/P/Bld) [Vol rate/Area] 40 mL/min/{1.73_m2} Low >60 [facility] Comment on above: Order Comment: ALBERTO RICO GETS BMP BADDOUR GETS LIVER AND LIPID MARI ANDFIKE GET TSH ANS CBCD Result Comment: mL/m in/1.73m2 CKD-EPI Creatinine Equation (2020) Performed By: #### L 500.4100, L500.3400, L100.0100, L506.0400, L501.9520, L500.2500 ####[facility] [address] [place], [place], [id number] Glucose [Mass/Vol] 490 mg/dL Invalid Interpretation Code 70-99 [facility] Comment on above: Order Comment: ALBERTO RICO GETS BMP BADDOUR GETS LIVER AND LIPID MARI ANDFIKE GET TSH ANS CBCD Result Comment: Crit ical Result(s) Called at: 1912 by:??JESSICA MISHRA TO Results read back by same. Performed By: #### L 500.4100, L500.3400, L100.0100, L506.0400, L501.9520, L500.2500 ####[facility] [address], [address] Potassium [Moles/Vol] 4.0 mmol/L Normal 3.3-5.1 [facility] Comment on above: Order Comment: ALBERTO RICO GETS BMP BADDOUR GETS LIVER AND LIPID MARI ANDFIKE GET TSH ANS CBCD Performed By: #### L 500.4100, L500.3400, L100.0100, L506.0400, L501.9520, L500.2500 ####[facility] [address] [place], [address] Sodium [Moles/Vol] 133 mmol/L Normal 133-145 [facility] Comment on above: Order Comment: ALBERTO RICO GETS BMP BADDOUR GETS LIVER AND LIPID MARI ANDFIKE GET TSH ANS CBCD Performed By: #### L 500.4100, L500.3400, L100.0100, L506.0400, L501.9520, L500.2500 ####[facility] [address] [place], [address] Urea nitrogen [Mass/Vol] 48 mg/dL High 4- [facility] Comment on above: Order Comment: ALBERTO RICO GETS BMP BADDOUR GETS LIVER AND LIPID MARI ANDFIKE GET TSH ANS CBCD Performed By: #### L 500.4100, L500.3400, L100.0100, L506.0400, L501.9520, L500.2500 ####[facility] [address] [place], [address] BUN Normal 4-19 [facility] Comment on above: Result Comment: WRON G Performed By: #### L 500.2500 ####[facility] [address] [place], [address] BUN/CRE Normal 10-20 [facility] Comment on above: Result Comment: WRON G Performed By: #### L 500.2500 ####[facility] [address] [place], [address] Calcium Normal 7.6-11.0 [facility] Comment on above: Result Comment: WRON G Performed By: #### L 500.2500 ####[facility] [address] [place], [address] CL Normal 98-108 [facility] Comment on above: Result Comment: WRON G Performed By: #### L 500.2500 ####[facility] [address] [place], [address] CO2 Normal 21.0-32.0 [facility] Comment on above: Result Comment: WRON G Performed By: #### L 500.2500 ####[facility] [address] [place], [address] CREAT,SERUM Normal 0.70-1.20 [facility] Comment on above: Result Comment: WRON G Performed By: #### L 500.2500 ####[facility] [address] [place], [address] eGFR Normal >60 [facility] Comment on above: Result Comment: WRON G Performed By: #### L 500.2500 ####[facility] [address] [place], [address] GAP Normal 5-15 [facility] Comment on above: Result Comment: WRON G Performed By: #### L 500.2500 ####[facility] [address] [place], [address] GLU Normal 70-99 [facility] Comment on above: Result Comment: WRON G Performed By: #### L 500.2500 ####[facility] [address] [place], [address] Potassium Normal 3.3-5.1 [facility] Comment on above: Result Comment: WRON G Performed By: #### L 500.2500 ####[facility] [address] [place], [address] Basic Metabolic Profile (BMP) Normal 133-145 [facility] Comment on above: Result Comment: ASHLEIGH G Performed By: #### L 500.2500 ####[facility] [address] [place], [address] Basophil percentageOrdered B y: Toni Vann on 10-13-2024 Basophils/100 WBC (Bld) 0.2 % 0-1 [facility] Bilirubin directOrdered By: Toni Vann on 10-13-2024 Bilirubin.direct [Mass/Vol] 0.16 mg/dL 0.00-0.30 [facility] Bilirubin, totalOrdered By: Toni Vann on 10-13-2024 Bilirubin [Mass/Vol] 0.33 mg/dL 0.00-1.30 [facility] CBC W/Diff, Automatedon 09-29 Absolute Lymph 0.70 X10 3/uL Low 0.83-4.51 [facility] Comment on above: Performed By: #### L 500.4100, L500.3400, L100.0100, L506.0400, L501.9520, L500.2500 ####[facility] [address], [address] Absolute Neut 12.0 X10 3/uL High 2.0-7.7 [facility] Comment on above: Performed By: #### L 500.4100, L500.3400, L100.0100, L506.0400, L501.9520, L500.2500 ####[facility] [address] [place], [address] Basophils/100 WBC (Bld) 0.2 % Normal 0-1 [facility] Comment on above: Performed By: #### L 500.4100, L500.3400, L100.0100, L506.0400, L501.9520, L500.2500 ####[facility] [address] [place], [address] Eosinophils/100 WBC (Bld) 0.1 % Normal 0-5 [facility] Comment on above: Performed By: #### L 500.4100, L500.3400, L100.0100, L506.0400, L501.9520, L500.2500 ####[facility] [address] [place], [address] Erythrocyte distribution width (RBC) [Ratio] 17.4 % High 11.6-14.6 [facility] Comment on above: Performed By: #### L 500.4100, L500.3400, L100.0100, L506.0400, L501.9520, L500.2500 ####[facility] [address] [place], [address] Hematocrit (Bld) [Volume fraction] 33.4 % Low 40-54 [facility] Comment on above: Performed By: #### L 500.4100, L500.3400, L100.0100, L506.0400, L501.9520, L500.2500 ####[facility] [address] [place], [address] Hemoglobin (Bld) [Mass/Vol] 10.2 g/dL Low 13.0-16.5 [facility] Comment on above: Performed By: #### L 500.4100, L500.3400, L100.0100, L506.0400, L501.9520, L500.2500 ####[facility] [address] [place], [address] IG% 1.000 High 0.0-0.9 [facility] Comment on above: Result Comment: IG% - Immature Granulocytes (promyelocytes, myelocytes andmetamyelocytes) > 1% indicates that a LEFT SHIFT is Present. Performed By: #### L 500.4100, L500.3400, L100.0100, L506.0400, L501.9520, L500.2500 ####[facility] [address] [place], [address] Lymphocytes/100 WBC (Bld) 5.2 % Low 19-41 [facility] Comment on above: Performed By: #### L 500.4100, L500.3400, L100.0100, L506.0400, L501.9520, L500.2500 ####[facility] [address] [place], [address] MCH (RBC) [Entitic mass] 24.1 pg Low 27.0-32.0 [facility] Comment on above: Performed By: #### L 500.4100, L500.3400, L100.0100, L506.0400, L501.9520, L500.2500 ####[facility] [address] [place], [address] MCHC (RBC) [Mass/Vol] 30.5 g/dL Low 32-36 [facility] Comment on above: Performed By: #### L 500.4100, L500.3400, L100.0100, L506.0400, L501.9520, L500.2500 ####[facility] [address] [place], [address] MCV (RBC) [Entitic vol] 78.8 fL Low 80-94 [facility] Comment on above: Performed By: #### L 500.4100, L500.3400, L100.0100, L506.0400, L501.9520, L500.2500 ####[facility] [address] [place], [address] Monocytes/100 WBC (Bld) 4.2 % Normal 0-10 [facility] Comment on above: Performed By: #### L 500.4100, L500.3400, L100.0100, L506.0400, L501.9520, L500.2500 ####[facility] [address] [place], [address] Neutrophils/100 WBC (Bld) 89.3 % High 47-70 [facility] Comment on above: Performed By: #### L 500.4100, L500.3400, L100.0100, L506.0400, L501.9520, L500.2500 ####[facility] [address] [place], [address] Nucleated RBC (Bld) [#/Vol] 0 10*3/uL Normal 0-5 [facility] Comment on above: Performed By: #### L 500.4100, L500.3400, L100.0100, L506.0400, L501.9520, L500.2500 ####[facility] [address] [place], [address] Platelet mean volume (Bld) [Entitic vol] 9.8 fL Normal 6.2-12.0 [facility] Comment on above: Performed By: #### L 500.4100, L500.3400, L100.0100, L506.0400, L501.9520, L500.2500 ####[facility] [address] [place], [address] Platelets (Bld) [#/Vol] 296 10*3/uL Normal 150-450 [facility] Comment on above: Performed By: #### L 500.4100, L500.3400, L100.0100, L506.0400, L501.9520, L500.2500 ####[facility] [address] [place], [address] RBC (Bld) [#/Vol] 4.24 10*6/uL Low 4.6-6.2 [facility] Comment on above: Performed By: #### L 500.4100, L500.3400, L100.0100, L506.0400, L501.9520, L500.2500 ####[facility] [address] [place], [address] RDW SD 50.3 fl High 35.1-43.9 [facility] Comment on above: Performed By: #### L 500.4100, L500.3400, L100.0100, L506.0400, L501.9520, L500.2500 ####[facility] [address] [place], [address] WBC (Bld) [#/Vol] 13.4 10*3/uL High 4.4-11.0 [facility] Comment on above: Performed By: #### L 500.4100, L500.3400, L100.0100, L506.0400, L501.9520, L500.2500 ####[facility] [address] [place], [address] Calculated very low density lipoprotein (VLDL) cholesterol measurementOrdered By: Toni Vann on 10-13-2024 Calculated very low density lipoprotein (VLDL) cholesterol measurement 39 mg/dL 5-40 [facility] Carbon dioxide, total [Moles /volume] in Central venous bloodOrdered By: Toni Vann on 10-13-2024 CO2 [Moles/Vol] 19.1 mmol/L Low 21.0-32.0 [facility] Chloride assayOrdered By: Ra cassy Vann on 10-13-2024 Chloride [Moles/Vol] 95 mmol/L Low 98-108 [facility] Eosinophil percentageOrdered By: Toni Vann on 10-13-2024 Eosinophils/100 WBC (Bld) 0.1 % 0-5 [facility] Erythrocyte distribution wid th ratioOrdered By: Toni Vann on 10-13-2024 Erythrocyte distribution width (RBC) [Ratio] 17.4 % High 11.6-14.6 [facility] Erythrocyte distribution wid th standard deviationOrdered By: Toni Vann on 10-13-2024 Erythrocyte distribution width (RBC) [Ratio] 50.3 fl High 35.1-43.9 [facility] Glomerular filtration rate ( GFR) estimation/1.73 sq m using serum, plasma, or whole bOrdered By: Toni Vann on 10-13-2024 GFR/1.73 sq M.predicted among non-blacks MDRD (S/P/Bld) [Vol rate/Area] 40 mL/min/{1.73_m2} Low >60 [facility] Hematocrit Auto (Bld) [Volum e fraction]Ordered By: Toni Vann on 10-13-2024 Hematocrit (Bld) [Volume fraction] 33.4 % Low 40-54 [facility] Hemoglobin measurementOrdere d By: Tonigerry Vann on 10-13-2024 Hemoglobin (Bld) [Mass/Vol] 10.2 g/dL Low 13.0-16.5 [facility] Immature granulocytes/100 WB C Auto (Bld)Ordered By: Tonigerry Vann on 10-13-2024 Immature granulocytes/100 WBC (Bld) 1.000 % High 0.0-0.9 [facility] LDL calc ser/plasOrdered By: Toni Vann on 10-13-2024 Cholesterol in LDL [Mass/Vol] 75 mg/dL [facility] Lipid Profileon 10-13-2024 CHOL:HDL 3.31 Normal [facility] Comment on above: Order Comment: ALBERTO RICO GETS BMP BADDOUR GETS LIVER AND LIPID MARI ANDNORMA GET TSH ANS CBCD Performed By: #### L 500.4100, L500.3400, L100.0100, L506.0400, L501.9520, L500.2500 ####[facility] [address] [place], [place], [id number] Cholesterol [Mass/Vol] 163 mg/dL Normal <=200 [facility] Comment on above: Order Comment: ALBERTO RICO GETS BMP BADDOUR GETS LIVER AND LIPID MARI ANDFIKE GET TSH ANS CBCD Result Comment: Chol esterol level, Desirable <200 mg/dLBorderline high cholesterol 200-239 mg/dLHigh cholesterol >=240 mg/dLRecommendations of the NCEP Adult Treatment Panel for thefollowing risk-cutoff thresholds for the [place] Americanpopulation. Performed By: #### L 500.4100, L500.3400, L100.0100, L506.0400, L501.9520, L500.2500 ####[facility] [address] [place], [address] Cholesterol in HDL [Mass/Vol] 49 mg/dL Normal [facility] Comment on above: Order Comment: ALBERTO RICO [...] L 500.4100, L500.3400, L100.0100, L506.0400, L501.9520, L500.2500 ####[facility] [address] [place], [address] Cholesterol in LDL [Mass/Vol] 75 mg/dL Normal [facility] Comment on above: Order Comment: ALBERTO RICO GETS BMP BADDOUR GETS LIVER AND LIPID MARI ANDFIKE GET TSH ANS CBCD Result Comment: Bord nimncf=181-209 mg/dL Higher Qytt=355 mg/dL or greater Performed By: #### L 500.4100, L500.3400, L100.0100, L506.0400, L501.9520, L500.2500 ####[facility] [address] [place], [address] Cholesterol in VLDL [Mass/Vol] 39 mg/dL Normal 5-40 [facility] Comment on above: Order Comment: ALBERTO RICO GETS BMP BADDOUR GETS LIVER AND LIPID MARI ANDFIKE GET TSH ANS CBCD Performed By: #### L 500.4100, L500.3400, L100.0100, L506.0400, L501.9520, L500.2500 ####[facility] [address] [place], [address] Triglyceride [Mass/Vol] 193 mg/dL Normal [facility] Comment on above: Order Comment: ALBERTO RICO GETS BMP BADDOUR GETS LIVER AND LIPID MARI ANDFIKE GET TSH ANS CBCD Result Comment: The drugs N-Acetylcysteine and Metamizole may falselydepress this assay.Normal range: <150 mg/dLBorderline High: 150-199 mg/dLHigh: 200-499 mg/dLVery High: >500 mg/dL Performed By: #### L 500.4100, L500.3400, L100.0100, L506.0400, L501.9520, L500.2500 ####[facility] [address] [place], [address] Liver Profileon 10-13-2024 Albumin [Mass/Vol] 3.9 g/dL Normal 3.4-4.8 [facility] Comment on above: Order Comment: ALBERTO RICO GETS BMP BADDOUR GETS LIVER AND LIPID MARI ANDFIKE GET TSH ANS CBCD Performed By: #### L 500.4100, L500.3400, L100.0100, L506.0400, L501.9520, L500.2500 ####[facility] [address] [place], [address] ALK PHOS 57 U/L Normal 40-129 [facility] Comment on above: Order Comment: ALBERTO RICO GETS BMP BADDOUR GETS LIVER AND LIPID MARI ANDFIKE GET TSH ANS CBCD Performed By: #### L 500.4100, L500.3400, L100.0100, L506.0400, L501.9520, L500.2500 ####[facility] [address] [place], [address] ALT [Catalytic activity/Vol] 17 U/L Normal <=46 [facility] Comment on above: Order Comment: ALBERTO RICO GETS BMP BADDOUR GETS LIVER AND LIPID MARI ANDFIKE GET TSH ANS CBCD Performed By: #### L 500.4100, L500.3400, L100.0100, L506.0400, L501.9520, L500.2500 ####[facility] [address] [place], [address] AST [Catalytic activity/Vol] 19 U/L Normal <=37 [facility] Comment on above: Order Comment: ALBERTO RICO GETS BMP BADDOUR GETS LIVER AND LIPID MARI ANDFIKE GET TSH ANS CBCD Performed By: #### L 500.4100, L500.3400, L100.0100, L506.0400, L501.9520, L500.2500 ####[facility] [address] [place], [address] Bilirubin [Mass/Vol] 0.33 mg/dL Normal 0.00-1.30 [facility] Comment on above: Order Comment: ALBERTO RICO GETS BMP BADDOUR GETS LIVER AND LIPID [facility] Performed By: #### L 500.4100, L500.3400, L100.0100, L506.0400, L501.9520, L500.2500 ####[facility] [address] [place], [address] Bilirubin.direct [Mass/Vol] 0.16 mg/dL Normal 0.00-0.30 [facility] Comment on above: Order Comment: ALBERTO RICO GETS BMP BADDOUR GETS LIVER AND LIPID MARI ANDFIKE GET TSH ANS CBCD Performed By: #### L 500.4100, L500.3400, L100.0100, L506.0400, L501.9520, L500.2500 ####[facility] [address] [place], [address] Globulin (S) [Mass/Vol] 3.7 g/dL Normal 2.2-4.2 [facility] Comment on above: Order Comment: ALBERTO RICO GETS BMP BADDOUR GETS LIVER AND LIPID MARI ANDFIKE GET TSH ANS CBCD Performed By: #### L 500.4100, L500.3400, L100.0100, L506.0400, L501.9520, L500.2500 ####[facility] [address] [facility] [place], [address] T PROT 7.6 g/dL Normal 5.9-8.4 [facility] Comment on above: Order Comment: ALBERTO RICO GETS BMP DERIKDONG GETS LIVER AND LIPID DAVID ANDKE GET TSH ANS CBCD Performed By: #### L 500.4100, L500.3400, L100.0100, L506.0400, L501.9520, L500.2500 ####[facility] [address] [facility] [place], [address] MCV (mean corpuscular volume ) determinationOrdered By: Toni Vann on 10-13-2024 MCV (RBC) [Entitic vol] 78.8 fL Low 80-94 [facility] Mean corpuscular hemoglobin (MCH) determinationOrdered By: Toni Vann on 10-13-2024 MCH (RBC) [Entitic mass] 24.1 pg Low 27.0-32.0 [facility] Monocyte percentageOrdered B y: Toni Vann on 10-13-2024 Monocytes/100 WBC (Bld) 4.2 % 0-10 [facility] Neutrophil percentageOrdered By: Toni Vann on 10-13-2024 Neutrophils/100 WBC (Bld) 89.3 % High 47-70 [facility] No Panel InformationOrdered By: Toni Vann on 10-13-2024 19 U/L <38 [facility] Platelet countOrdered By: Ra cassy Vann on 10-13-2024 Platelets (Bld) [#/Vol] 296 10*3/uL 150-450 [facility] Potassium measurement (mass/ volume)Ordered By: Toni Vann on 10-13-2024 Potassium (Unsp spec) [Mass/Vol] 4.0 mmol/L 3.3-5.1 [facility] RBC Auto (Bld) [#/Vol]Ordere d By: Toni Vann on 10-13-2024 RBC (Bld) [#/Vol] 4.24 10*6/uL Low 4.6-6.2 [facility] Serum creatinine measurement (mass/volume)Ordered By: Toni Vann on 10-13-2024 Creatinine [Mass/Vol] 1.89 mg/dL High 0.70-1.20 [facility] Serum globulin measurementOr dered By: Toni Vann on 10-13-2024 Globulin (S) [Mass/Vol] 3.7 g/dL 2.2-4.2 [facility] Serum glucose measurement (m ass/volume)Ordered By: Toni Vann 10-13-2024 Glucose [Mass/Vol] 490 mg/dL Critically high 70-99 [facility] Serum or plasma alanine briscoe otransferase (ALT) measurementOrdered By: Toni Vann 10-13-2024 ALT [Catalytic activity/Vol] 17 U/L <47 [facility] Serum or plasma albumin grazyna urement (mass/volume)Ordered By: Toni Vann 10-13-2024 Albumin [Mass/Vol] 3.9 g/dL 3.4-4.8 [facility] Serum or plasma alkaline benjamin sphatase measurementOrdered By: Toni Vann 10-13-2024 ALP [Catalytic activity/Vol] 57 U/L 40-129 [facility] Serum or plasma calcium grazyna urement (mass/volume)Ordered By: Toni Vann 10-13-2024 Calcium [Mass/Vol] 9.2 mg/dL 7.6-11.0 [facility] Serum or plasma cholesterol in HDL measurement (mass/volume)Ordered By: Toni Vann 10-13-2024 Cholesterol in HDL [Mass/Vol] 49 mg/dL >40 [facility] Serum or plasma cholesterol measurement (mass/volume)Ordered By: Toni Vann 10-13-2024 Cholesterol [Mass/Vol] 163 mg/dL <201 [facility] Serum or plasma urea nitroge n measurement (mass/volume)Ordered By: Toni Vann 10-13-2024 Urea nitrogen [Mass/Vol] 48 mg/dL High 4-19 [facility] Sodium levelOrdered By: Adrienne Vann on 10-13-2024 Sodium [Moles/Vol] 133 mmol/L 133-145 [facility] T4 Free Directon 10-13-2024 T4 FREE DIRECT 1.40 ng/dL Normal 0.76-1.46 [facility] Comment on above: Order Comment: ALBERTO RICO GETS BMP NANCY GETS LIVER AND LIPID MARI ANDNORMA GET TSH ANS CBCD Performed By: #### L 500.4100, L500.3400, L100.0100, L506.0400, L501.9520, L500.2500 ####[facility] [address] [place], [address] T4 freeOrdered By: Toni roque on 10-13-2024 Free T4 [Mass/Vol] 1.40 ng/dL 0.76-1.46 [facility] TSH DL <= 0.005 mIU/L QnOrde red By: Toni Vann on 10-13-2024 TSH Qn 0.480 uIU/mL 0.300-4.200 [facility] Thyroid Stim Hormone (TSH)on 10-13-2024 TSH 0.480 uIU/mL Normal 0.300-4.200 [facility] Comment on above: Order Comment: ALBERTO RICO GETS BMP NANCY GETS LIVER AND LIPID MARI URIASLIZETT GET TSH ANS CBCD Performed By: #### L 500.4100, L500.3400, L100.0100, L506.0400, L501.9520, L500.2500 ####[facility] [id number] [place], [address] Total proteinOrdered By: Wilmar Vann on 10-13-2024 Protein [Mass/Vol] 7.6 g/dL 5.9-8.4 [facility] White blood cell (WBC) count Ordered By: Toni Vann on 10-13-2024 WBC (Bld) [#/Vol] 13.4 10*3/uL High 4.4-11.0 [facility] Fungal Culture/SmearOrdered By: Agnes Doyle on 10-12-2024 Fungus identified Cx Nom (Unsp spec) No fungi isolated. [facility] Fungus identified Cx Nom (Un sp spec)Ordered By: Agnes Doyle on 10-12-2024 Fungus identified Fungus stain Nom (Unsp spec) No fungal elements seen [facility] Neurology Visit Reporton Neurology Visit Report Normal [facility] 36on 10-06-2024 36 Patient called in to [...] thinners. He informed me he is requesting [facility] to electronically send over his MRI/CTA of most recent stroke. I told him to let me know if they want us to request it or if he has any trouble. He verbalized understanding. Normal [facility] Inital Evaluation (1) - PTon 10-05-2024 Inital Evaluation (1) - PT Normal [facility] Bedside Glucoseon 09-28-2024 FINGERSTICK GLU 361 mg/dL High 74-106 [facility] Comment on above: Result Comment: ANI BRADFORD OF PATIENT CARE PER NURSING PROTOCOL Performed By: #### L 501.080 ####[facility] [id number] [place], [address] FINGERSTICK GLU 363 mg/dL High 74-106 [facility] Comment on above: Result Comment: ANI NELSONENT OF PATIENT CARE PER NURSING PROTOCOL Performed By: #### L 501.080 ####[facility] [address] [place], [address] FINGERSTICK GLU 232 mg/dL High 74-106 [facility] Comment on above: Result Comment: ANI GEMENT OF PATIENT CARE PER NURSING PROTOCOL Performed By: #### L 501.080 ####[facility] [address] [place], [place], [address] FINGERSTICK GLU 165 mg/dL High 74-106 [facility] Comment on above: Result Comment: ANI GEMENT OF PATIENT CARE PER NURSING PROTOCOL Performed By: #### L 501.080 ####[facility] [address] [place], [address] Echocardiogram study reportO rdered By: Sarah Parada on 09-28-2024 Study report [facility] Work Phone: Glucose measurement at [facility] deOrdered By: Karina Benítez on 09-28-2024 Glucose [Mass/Vol] 232 mg/dL High 74-106 [facility] H. capsulatum Ag IA Qn (S)Or dered By: Cathleen Driscoll on 09-28-2024 H. capsulatum Ag Ql (Unsp spec) Not detected Not Detected [facility] Scan Result See Scanned Result [facility] T-cell subsets CD4 and CD8 p janice (Bld)Ordered By: Demetrio Kim on 09-28-2024 CD3+CD4+ (T4 helper) cells/100 cells (Bld) 72 % not established [facility] CD3+CD4+ (T4 helper) cells/CD3+CD8+ (T8 suppressor cells) cells (Bld) [# ratio] 4.50 % not established [facility] CD3+CD8+ (T8 suppressor cells) cells/100 cells (Bld) 16 % not established [facility] Normal values have n ot been established for BAL specimens. This test is a Dual platform, multicolor, whole blood lysis assay. It was developed and its performance characteristics determined by the Department of Pathology, [facility], and has not been cleared or approved by the U.S. Food and Drug Administration. The laboratory is regulated under CLIA as qualified to perform high complexity testing. This test is used for clinical purposes. It should not be regarded as investigational or for research. Immunophenotypic analysis was performed using the following antibodies: CD45, CD3, CD4, and CD8 [facility] Absolute lymphocyte countOrd ered By: Xiao Berrios on 09-27-2024 Lymphocytes Auto (Unsp spec) [#/Vol] 2.19 10*3/uL 0.83-4.51 [facility] Anion gap in Serum or Plasma Ordered By: Xiao Berrios on 09-27-2024 Anion gap [Moles/Vol] 12 mmol/L 5-15 [facility] Automated lymphocyte count a s percentage of total leukocytesOrdered By: Xiao Berrios on 09-27-2024 Lymphocytes/100 WBC Auto (Unsp spec) 19.4 % -41 [facility] BUN/creatinine ratioOrdered By: Xiao Berrios on 09-27-2024 Urea nitrogen/Creatinine [Mass ratio] 22.7 mg/mg High 10- [facility] Basic Metabolic Profile (BMP )on 09-27-2024 BUN/CRE 22.7 RATIO High - [facility] Comment on above: Order Comment: Comme nts: NPO at ID prior to lipid panel Performed By: #### L 500.2500, L500.4100, L100.0100 ####[facility] [address] [place], [address] Calcium [Mass/Vol] 9.2 mg/dL Normal 7.6-11.0 [facility] Comment on above: Order Comment: Comme nts: NPO at ID prior to lipid panel Performed By: #### L 500.2500, L500.4100, L100.0100 ####[facility] [address] [place], [address] Chloride [Moles/Vol] 102 mmol/L Normal 98-108 [facility] Comment on above: Order Comment: Comme nts: NPO at ID prior to lipid panel Performed By: #### L 500.2500, L500.4100, L100.0100 ####[facility] [address] [place], [address] CO2 [Moles/Vol] 24.8 mmol/L Normal 21.0-32.0 [facility] Comment on above: Order Comment: Comme nts: NPO at MN prior to lipid panel Performed By: #### L 500.2500, L500.4100, L100.0100 ####[facility] [address] [place], [address] Creatinine [Mass/Vol] 1.19 mg/dL Normal 0.70-1.20 [facility] Comment on above: Order Comment: Comme nts: NPO at MN prior to lipid panel Performed By: #### L 500.2500, L500.4100, L100.0100 ####[facility] [address] [place], [address] ECRCL 93.22 ml/min Normal 50-250 [facility] Comment on above: Order Comment: Comme nts: NPO at MN prior to lipid panel Performed By: #### L 500.2500, L500.4100, L100.0100 ####[facility] [address] [place], [address] GAP 12 Normal 5-15 [facility] Comment on above: Order Comment: Comme nts: NPO at MN prior to lipid panel Performed By: #### L 500.2500, L500.4100, L100.0100 ####[facility] [address] [place], [address] GFR/1.73 sq M.predicted among non-blacks MDRD (S/P/Bld) [Vol rate/Area] 69 mL/min/{1.73_m2} Normal >60 [facility] Comment on above: Order Comment: Comme nts: NPO at MN prior to lipid panel Result Comment: mL/m in/1.73m2 CKD-EPI Creatinine Equation (2020) Performed By: #### L 500.2500, L500.4100, L100.0100 ####[facility] [address] [place], [address] Glucose [Mass/Vol] 97 mg/dL Normal 70-99 [facility] Comment on above: Order Comment: Comme nts: NPO at ID prior to lipid panel Performed By: #### L 500.2500, L500.4100, L100.0100 ####[facility] [address] [place], [address] Potassium [Moles/Vol] 3.9 mmol/L Normal 3.3-5.1 [facility] Comment on above: Order Comment: Comme nts: NPO at ID prior to lipid panel Result Comment: Hemo lysis present, Results??could be affected.?? Performed By: #### L 500.2500, L500.4100, L100.0100 ####[facility] [address] [place], [address] Sodium [Moles/Vol] 138 mmol/L Normal 133-145 [facility] Comment on above: Order Comment: Comme nts: NPO at ID prior to lipid panel Performed By: #### L 500.2500, L500.4100, L100.0100 ####[facility] [address] [place], [address] Urea nitrogen [Mass/Vol] 27 mg/dL High 4-19 [facility] Comment on above: Order Comment: Comme nts: NPO at ID prior to lipid panel Performed By: #### L 500.2500, L500.4100, L100.0100 ####[facility] [address] [place], [address] Basophil percentageOrdered B y: Xiao Berrios on 09-27-2024 Basophils/100 WBC (Bld) 0.4 % 0-1 [facility] Bedside Glucoseon 09-27-2024 FINGERSTICK GLU 348 mg/dL High 74-106 [facility] Comment on above: Result Comment: ANI BRADFORD OF PATIENT CARE PER NURSING PROTOCOL Performed By: #### L 501.080 ####[facility] [address] [place], [address] FINGERSTICK GLU 163 mg/dL High 74-106 [facility] Comment on above: Result Comment: ANI GEMENT OF PATIENT CARE PER NURSING PROTOCOL Performed By: #### L 501.080 ####[facility] [address] [place], [address] FINGERSTICK GLU 106 mg/dL Normal 74-106 [facility] Comment on above: Result Comment: ANI GEMENT OF PATIENT CARE PER NURSING PROTOCOL Performed By: #### L 501.080 ####[facility] [address] [place], [address] Brain without Contraston Brain without Contrast Normal [facility] CBC W/Diff, Automatedon 08-31 Absolute Lymph 2.19 X10 3/uL Normal 0.83-4.51 [facility] Comment on above: Performed By: #### L 500.2500, L500.4100, L100.0100 ####[facility] [address] [place], [address] Absolute Neut 7.8 X10 3/uL High 2.0-7.7 [facility] Comment on above: Performed By: #### L 500.2500, L500.4100, L100.0100 ####[facility] [address] [place], [address] Basophils/100 WBC (Bld) 0.4 % Normal 0-1 [facility] Comment on above: Performed By: #### L 500.2500, L500.4100, L100.0100 ####[facility] [address] [place], [address] Eosinophils/100 WBC (Bld) 1.7 % Normal 0-5 [facility] Comment on above: Performed By: #### L 500.2500, L500.4100, L100.0100 ####[facility] [address] [place], [address] Erythrocyte distribution width (RBC) [Ratio] 17.8 % High 11.6-14.6 [facility] Comment on above: Performed By: #### L 500.2500, L500.4100, L100.0100 ####[facility] [address] [place], [address] Hematocrit (Bld) [Volume fraction] 29.3 % Low 40-54 [facility] Comment on above: Performed By: #### L 500.2500, L500.4100, L100.0100 ####[facility] [address] [place], [address] Hemoglobin (Bld) [Mass/Vol] 8.9 g/dL Low 13.0-16.5 [facility] Comment on above: Performed By: #### L 500.2500, L500.4100, L100.0100 ####[facility] [address] [place], [address] IG% 0.700 Normal 0.0-0.9 [facility] Comment on above: Result Comment: IG% - Immature Granulocytes (promyelocytes, myelocytes andmetamyelocytes) > 1% indicates that a LEFT SHIFT is Present. Performed By: #### L 500.2500, L500.4100, L100.0100 ####[facility] [address] [place], [address] Lymphocytes/100 WBC (Bld) 19.4 % Normal 19-41 [facility] Comment on above: Performed By: #### L 500.2500, L500.4100, L100.0100 ####[facility] [address] [place], [address] MCH (RBC) [Entitic mass] 24.2 pg Low 27.0-32.0 [facility] Comment on above: Performed By: #### L 500.2500, L500.4100, L100.0100 ####[facility] [address] [place], [address] MCHC (RBC) [Mass/Vol] 30.4 g/dL Low 32-36 [facility] Comment on above: Performed By: #### L 500.2500, L500.4100, L100.0100 ####[facility] [address] [place], [address] MCV (RBC) [Entitic vol] 79.6 fL Low 80-94 [facility] Comment on above: Performed By: #### L 500.2500, L500.4100, L100.0100 ####[facility] [address] [place], [address] Monocytes/100 WBC (Bld) 8.9 % Normal 0-10 [facility] Comment on above: Performed By: #### L 500.2500, L500.4100, L100.0100 ####[facility] [address] [place], [address] Neutrophils/100 WBC (Bld) 68.9 % Normal 47-70 [facility] Comment on above: Performed By: #### L 500.2500, L500.4100, L100.0100 ####[facility] [address] [place], [address] Nucleated RBC (Bld) [#/Vol] 0 10*3/uL Normal 0-5 [facility] Comment on above: Performed By: #### L 500.2500, L500.4100, L100.0100 ####[facility] [address] [place], [address] Platelet mean volume (Bld) [Entitic vol] 9.8 fL Normal 6.2-12.0 [facility] Comment on above: Performed By: #### L 500.2500, L500.4100, L100.0100 ####[facility] [address] [place], [address] Platelets (Bld) [#/Vol] 214 10*3/uL Normal 150-450 [facility] Comment on above: Performed By: #### L 500.2500, L500.4100, L100.0100 ####[facility] [address] [place], [address] RBC (Bld) [#/Vol] 3.68 10*6/uL Low 4.6-6.2 [facility] Comment on above: Performed By: #### L 500.2500, L500.4100, L100.0100 ####[facility] [address] [place], [address] RDW SD 51.2 fl High 35.1-43.9 [facility] Comment on above: Performed By: #### L 500.2500, L500.4100, L100.0100 ####[facility] [address] [place], [address] WBC (Bld) [#/Vol] 11.3 10*3/uL High 4.4-11.0 [facility] Comment on above: Performed By: #### L 500.2500, L500.4100, L100.0100 ####[facility] [address] [place], [address] Calculated very low density lipoprotein (VLDL) cholesterol measurementOrdered By: Xiao Berrios on 09-27-2024 Calculated very low density lipoprotein (VLDL) cholesterol measurement 32 mg/dL 5-40 [facility] Carbon dioxide, total [Moles /volume] in Central venous bloodOrdered By: Xiao Berrios on 09-27-2024 CO2 [Moles/Vol] 24.8 mmol/L 21.0-32.0 [facility] Chloride assayOrdered By: Tunde Berrios on 09-27-2024 Chloride [Moles/Vol] 102 mmol/L 98-108 [facility] Eosinophil percentageOrdered By: Xiao Berrios on 09-27-2024 Eosinophils/100 WBC (Bld) 1.7 % 0-5 [facility] Erythrocyte distribution wid th ratioOrdered By: Xiao Berrios on 09-27-2024 Erythrocyte distribution width (RBC) [Ratio] 17.8 % High 11.6-14.6 [facility] Erythrocyte distribution wid th standard deviationOrdered By: Xiao Berrios on 09-27-2024 Erythrocyte distribution width (RBC) [Ratio] 51.2 fl High 35.1-43.9 [facility] Glomerular filtration rate ( GFR) estimation/1.73 sq m using serum, plasma, or whole bOrdered By: Xiao Berrios on 09-27-2024 GFR/1.73 sq M.predicted among non-blacks MDRD (S/P/Bld) [Vol rate/Area] 69 mL/min/{1.73_m2} >60 [facility] Hematocrit Auto (Bld) [Volum e fraction]Ordered By: Xiao Berrios on 09-27-2024 Hematocrit (Bld) [Volume fraction] 29.3 % Low 40-54 [facility] Hemoglobin A1con 09-27-2024 HbA1c (Bld) [Mass fraction] 8.4 % High <=5.6 [facility] Comment on above: Result Comment: Norm al < 5.7 % Prediabetic 5.7 - 6.4 % Diabetic >or= 6.5 % Please note range changes. Performed By: #### L 501.9985 ####[facility] [address] [place], [address] Hemoglobin A1c percentageOrd ered By: Xiao Berrios on 09-27-2024 HbA1c (Bld) [Mass fraction] 8.4 % High <5.7 [facility] Hemoglobin measurementOrdere d By: Xiao Berrios on 09-27-2024 Hemoglobin (Bld) [Mass/Vol] 8.9 g/dL Low 13.0-16.5 [facility] Immature granulocytes/100 WB C Auto (Bld)Ordered By: Xiao Berrios on 09-27-2024 Immature granulocytes/100 WBC (Bld) 0.700 % 0.0-0.9 [facility] LDL calc ser/plasOrdered By: Xiao Berrios on 09-27-2024 Cholesterol in LDL [Mass/Vol] 64 mg/dL [facility] Lipid Profileon 09-27-2024 CHOL:HDL 2.83 Normal [facility] Comment on above: Order Comment: Comme nts: NPO at MN prior to lipid panel Performed By: #### L 500.2500, L500.4100, L100.0100 ####[facility] [address] [place], [address] Cholesterol [Mass/Vol] 148 mg/dL Normal <=200 [facility] Comment on above: Order Comment: Comme nts: NPO at ID prior to lipid panel Result Comment: Chol esterol level, Desirable <200 mg/dLBorderline high cholesterol 200-239 mg/dLHigh cholesterol >=240 mg/dLRecommendations of the NCEP Adult Treatment Panel for thefollowing risk-cutoff thresholds for the [place] [facility]. Performed By: #### L 500.2500, L500.4100, L100.0100 ####[facility] [address] [place], [address] Cholesterol in HDL [Mass/Vol] 52 mg/dL Normal [facility] Comment on above: Order Comment: Comme nts: NPO at ID prior to lipid panel Result Comment: Mary Ann onal Cholesterol Education Program (NCEP) guidelines:<40 mg/dL: Low HDL-cholesterol (major risk factor for CHD)>= 60 mg/dL: High HDL-cholesterol (negative risk factor forCHD)HDL-cholesterol is affected by a number of factors, e.g.smoking, exercise, hormones, sex and age. Performed By: #### L 500.2500, L500.4100, L100.0100 ####[facility] [address] [place], [address] Cholesterol in LDL [Mass/Vol] 64 mg/dL Normal [facility] Comment on above: Order Comment: Comme nts: NPO at ID prior to lipid panel Result Comment: Bord ebsmjn=871-838 mg/dL Higher Gqfv=555 mg/dL or greater Performed By: #### L 500.2500, L500.4100, L100.0100 ####[facility] [address] [place], [address] Cholesterol in VLDL [Mass/Vol] 32 mg/dL Normal 5-40 [facility] Comment on above: Order Comment: Comme nts: NPO at MN prior to lipid panel Performed By: #### L 500.2500, L500.4100, L100.0100 ####[facility] [address] [place], [address] Triglyceride [Mass/Vol] 159 mg/dL Normal [facility] Comment on above: Order Comment: Comme nts: NPO at MN prior to lipid panel Result Comment: The drugs N-Acetylcysteine and Metamizole may falselydepress this assay.Normal range: <150 mg/dLBorderline High: 150-199 mg/dLHigh: 200-499 mg/dLVery High: >500 mg/dL Performed By: #### L 500.2500, L500.4100, L100.0100 ####[facility] [address] [place], [address] MCV (mean corpuscular volume ) determinationOrdered By: Xiao Berrios on 09-27-2024 MCV (RBC) [Entitic vol] 79.6 fL Low 80-94 [facility] MR/CON.PCM.NEon 09-27-2024 MR/CON.PCM.NE Normal [facility] Magnetic resonance imaging r eportOrdered By: Rosita Newberry on 09-27-2024 Study report [facility] Mean corpuscular hemoglobin (MCH) determinationOrdered By: Xiao Berrios on 09-27-2024 MCH (RBC) [Entitic mass] 24.2 pg Low 27.0-32.0 [facility] Monocyte percentageOrdered B y: Xiao Berrios on 09-27-2024 Monocytes/100 WBC (Bld) 8.9 % 0-10 [facility] Neutrophil percentageOrdered By: Xiao Berrios on 09-27-2024 Neutrophils/100 WBC (Bld) 68.9 % 47-70 [facility] Platelet countOrdered By: Tunde Berrios on 09-27-2024 Platelets (Bld) [#/Vol] 214 10*3/uL 150-450 [facility] Potassium measurement (mass/ volume)Ordered By: Xiao Berrios on 09-27-2024 Potassium (Unsp spec) [Mass/Vol] 3.9 mmol/L 3.3-5.1 [facility] RBC Auto (Bld) [#/Vol]Ordere d By: Xiao Berrios on 09-27-2024 RBC (Bld) [#/Vol] 3.68 10*6/uL Low 4.6-6.2 [facility] Serum creatinine measurement (mass/volume)Ordered By: Xiao Berrios on 09-27-2024 Creatinine [Mass/Vol] 1.19 mg/dL 0.70-1.20 [facility] Serum glucose measurement (m ass/volume)Ordered By: Xiao Berrios on 09-27-2024 Glucose [Mass/Vol] 97 mg/dL 70-99 [facility] Serum or plasma calcium grazyna urement (mass/volume)Ordered By: Xiao Berrios on 09-27-2024 Calcium [Mass/Vol] 9.2 mg/dL 7.6-11.0 [facility] Serum or plasma cholesterol in HDL measurement (mass/volume)Ordered By: Xiao Berrios on 09-27-2024 Cholesterol in HDL [Mass/Vol] 52 mg/dL >40 [facility] Serum or plasma cholesterol measurement (mass/volume)Ordered By: Xiao Berrios on 09-27-2024 Cholesterol [Mass/Vol] 148 mg/dL <201 [facility] Serum or plasma urea nitroge n measurement (mass/volume)Ordered By: Xiao Berrios on 09-27-2024 Urea nitrogen [Mass/Vol] 27 mg/dL High 4-19 [facility] Sodium levelOrdered By: Irwin Berrios on 09-27-2024 Sodium [Moles/Vol] 138 mmol/L 133-145 [facility] White blood cell (WBC) count Ordered By: Xiao Berrios on 09-27-2024 WBC (Bld) [#/Vol] 11.3 10*3/uL High 4.4-11.0 [facility] 12 Lead EKGon 09-26-2024 12 Lead EKG Normal [facility] Absolute lymphocyte countOrd ered By: Angelmelisa Avitia on 09-26-2024 Lymphocytes Auto (Unsp spec) [#/Vol] 0.58 10*3/uL Low 0.83-4.51 [facility] Absolute neutrophil countOrd ered By: Angel Avitia on 09-26-2024 Neutrophils (Bld) [#/Vol] 11.9 10*3/uL High 2.0-7.7 [facility] Activated partial thrombopla stin time (aPTT) in platelet poor plasma by coagulation aOrdered By: Angel Avitia on 09-26-2024 aPTT Coag (PPP) [Time] 20.8 s Low 24.1-36.2 [facility] Anion gap in Serum or Plasma Ordered By: Angel Avitia on 09-26-2024 Anion gap [Moles/Vol] 15 mmol/L 5-15 [facility] Automated lymphocyte count a s percentage of total leukocytesOrdered By: Angelmelisa Avitia on 09-26-2024 Lymphocytes/100 WBC Auto (Unsp spec) 4.2 % Low 19-41 [facility] BUN/creatinine ratioOrdered By: [facility] Urea nitrogen/Creatinine [Mass ratio] 24.6 mg/mg High 10 [facility] Bacteria identified Respirat ory culture Nom (Unsp spec)Ordered By: Nely Brasher on 09-26-2024 Microscopic observation Gram stain Nom (Unsp spec) (2+) Few Polymorphonuclear leukocytes [facility] Microscopic observation Gram stain Nom (Unsp spec) No organisms seen [facility] Basic Metabolic Profile (BMP )on 09-26-2024 BUN/CRE 24.6 RATIO High 10 [facility] Comment on above: Performed By: #### L 300.4310, L100.0100, L501.4021, L500.2500, L300.3900 ####[facility] [address] [place], [address] Calcium [Mass/Vol] 9.0 mg/dL Normal 7.6-11.0 [facility] Comment on above: Performed By: #### L 300.4310, L100.0100, L501.4021, L500.2500, L300.3900 ####[facility] [address] [place], [address] Chloride [Moles/Vol] 100 mmol/L Normal 98-108 [facility] Comment on above: Performed By: #### L 300.4310, L100.0100, L501.4021, L500.2500, L300.3900 ####[facility] [address] [place], [address] CO2 [Moles/Vol] 22.9 mmol/L Normal 21.0-32.0 [facility] Comment on above: Performed By: #### L 300.4310, L100.0100, L501.4021, L500.2500, L300.3900 ####[facility] [address] [place], [address] Creatinine [Mass/Vol] 1.26 mg/dL High 0.70-1.20 [facility] Comment on above: Performed By: #### L 300.4310, L100.0100, L501.4021, L500.2500, L300.3900 ####[facility] [address] [place], [address] GAP 15 Normal 5-15 [facility] Comment on above: Performed By: #### L 300.4310, L100.0100, L501.4021, L500.2500, L300.3900 ####[facility] [address] [place], [address] GFR/1.73 sq M.predicted among non-blacks MDRD (S/P/Bld) [Vol rate/Area] 65 mL/min/{1.73_m2} Normal >60 [facility] Comment on above: Result Comment: mL/m in/1.73m2 CKD-EPI Creatinine Equation (2020) Performed By: #### L 300.4310, L100.0100, L501.4021, L500.2500, L300.3900 ####[facility] [address] [place], [address] Glucose [Mass/Vol] 246 mg/dL High 70-99 [facility] Comment on above: Performed By: #### L 300.4310, L100.0100, L501.4021, L500.2500, L300.3900 ####[facility] [address] [place], [address] Potassium [Moles/Vol] 4.2 mmol/L Normal 3.3-5.1 [facility] Comment on above: Result Comment: Hemo lysis present, Results??could be affected.?? Performed By: #### L 300.4310, L100.0100, L501.4021, L500.2500, L300.3900 ####[facility] [address] [place], [address] Sodium [Moles/Vol] 138 mmol/L Normal 133-145 [facility] Comment on above: Performed By: #### L 300.4310, L100.0100, L501.4021, L500.2500, L300.3900 ####[facility] [address] [place], [address] Urea nitrogen [Mass/Vol] 31 mg/dL High 4-19 [facility] Comment on above: Performed By: #### L 300.4310, L100.0100, L501.4021, L500.2500, L300.3900 ####[facility] [address] [place], [address] Basophil percentageOrdered B y: Angel Avitia on 09-26-2024 Basophils/100 WBC (Bld) 0.4 % 0-1 [facility] Bedside Glucoseon 09-26-2024 FINGERSTICK GLU 172 mg/dL High 74-106 [facility] Comment on above: Result Comment: ANI BRADFORD OF PATIENT CARE PER NURSING PROTOCOL Performed By: #### L 501.080 ####[facility] [address] [place], [address] CBC W/Diff, Automatedon 06-2 Absolute Lymph 0.58 X10 3/uL Low 0.83-4.51 [facility] Comment on above: Performed By: #### L 300.4310, L100.0100, L501.4021, L500.2500, L300.3900 ####[facility] [address] [place], [address] Absolute Neut 11.9 X10 3/uL High 2.0-7.7 [facility] Comment on above: Performed By: #### L 300.4310, L100.0100, L501.4021, L500.2500, L300.3900 ####[facility] [address] [place], [address] Basophils/100 WBC (Bld) 0.4 % Normal 0-1 [facility] Comment on above: Performed By: #### L 300.4310, L100.0100, L501.4021, L500.2500, L300.3900 ####[facility] [address] [place], [address] Eosinophils/100 WBC (Bld) 0.6 % Normal 0-5 [facility] Comment on above: Performed By: #### L 300.4310, L100.0100, L501.4021, L500.2500, L300.3900 ####[facility] [address] [place], [address] Erythrocyte distribution width (RBC) [Ratio] 17.9 % High 11.6-14.6 [facility] Comment on above: Performed By: #### L 300.4310, L100.0100, L501.4021, L500.2500, L300.3900 ####[facility] [address] [place], [address] Hematocrit (Bld) [Volume fraction] 30.0 % Low 40-54 [facility] Comment on above: Performed By: #### L 300.4310, L100.0100, L501.4021, L500.2500, L300.3900 ####[facility] [address] [place], [address] Hemoglobin (Bld) [Mass/Vol] 9.1 g/dL Low 13.0-16.5 [facility] Comment on above: Performed By: #### L 300.4310, L100.0100, L501.4021, L500.2500, L300.3900 ####[facility] [address] [place], [address] IG% 0.800 Normal 0.0-0.9 [facility] Comment on above: Result Comment: IG% - Immature Granulocytes (promyelocytes, myelocytes andmetamyelocytes) > 1% indicates that a LEFT SHIFT is Present. Performed By: #### L 300.4310, L100.0100, L501.4021, L500.2500, L300.3900 ####[facility] [address] [place], [address] Lymphocytes/100 WBC (Bld) 4.2 % Low 19-41 [facility] Comment on above: Performed By: #### L 300.4310, L100.0100, L501.4021, L500.2500, L300.3900 ####[facility] [address] [place], [address] MCH (RBC) [Entitic mass] 24.0 pg Low 27.0-32.0 [facility] Comment on above: Performed By: #### L 300.4310, L100.0100, L501.4021, L500.2500, L300.3900 ####[facility] [address] [place], [address] MCHC (RBC) [Mass/Vol] 30.3 g/dL Low 32-36 [facility] Comment on above: Performed By: #### L 300.4310, L100.0100, L501.4021, L500.2500, L300.3900 ####[facility] [address] [place], [address] MCV (RBC) [Entitic vol] 79.2 fL Low 80-94 [facility] Comment on above: Performed By: #### L 300.4310, L100.0100, L501.4021, L500.2500, L300.3900 ####[facility] [address] [place], [address] Monocytes/100 WBC (Bld) 8.7 % Normal 0-10 [facility] Comment on above: Performed By: #### L 300.4310, L100.0100, L501.4021, L500.2500, L300.3900 ####[facility] [address] [place], [address] Neutrophils/100 WBC (Bld) 85.3 % High 47-70 [facility] Comment on above: Performed By: #### L 300.4310, L100.0100, L501.4021, L500.2500, L300.3900 ####[facility] [address] [place], [address] Nucleated RBC (Bld) [#/Vol] 0 10*3/uL Normal 0-5 [facility] Comment on above: Performed By: #### L 300.4310, L100.0100, L501.4021, L500.2500, L300.3900 ####[facility] [address] [place], [address] Platelet mean volume (Bld) [Entitic vol] 10.4 fL Normal 6.2-12.0 [facility] Comment on above: Performed By: #### L 300.4310, L100.0100, L501.4021, L500.2500, L300.3900 ####[facility] [address] [place], [address] Platelets (Bld) [#/Vol] 237 10*3/uL Normal 150-450 [facility] Comment on above: Performed By: #### L 300.4310, L100.0100, L501.4021, L500.2500, L300.3900 ####[facility] [address] [place], [address] RBC (Bld) [#/Vol] 3.79 10*6/uL Low 4.6-6.2 [facility] Comment on above: Performed By: #### L 300.4310, L100.0100, L501.4021, L500.2500, L300.3900 ####[facility] [address] [place], [address] RDW SD 50.9 fl High 35.1-43.9 [facility] Comment on above: Performed By: #### L 300.4310, L100.0100, L501.4021, L500.2500, L300.3900 ####[facility] [address] [place], [address] WBC (Bld) [#/Vol] 14.0 10*3/uL High 4.4-11.0 [facility] Comment on above: Performed By: #### L 300.4310, L100.0100, L501.4021, L500.2500, L300.3900 ####[facility] [address] [place], [address] Carbon dioxide, total [Moles /volume] in Central venous bloodOrdered By: Angel Avitia on 09-26-2024 CO2 [Moles/Vol] 22.9 mmol/L 21.0-32.0 [facility] Chloride assayOrdered By: Domonique Avitia on 09-26-2024 Chloride [Moles/Vol] 100 mmol/L 98-108 [facility] Echo Complete W/ Contraston 09-26-2024 Echo Complete W/ Contrast Normal [facility] Emergency Department Summary on 09-26-2024 Emergency Department Summary Normal [facility] Eosinophil percentageOrdered By: Angel Avitia on 09-26-2024 Eosinophils/100 WBC (Bld) 0.6 % 0-5 [facility] Erythrocyte distribution wid th ratioOrdered By: Angel Avitia on 09-26-2024 Erythrocyte distribution width (RBC) [Ratio] 17.9 % High 11.6-14.6 [facility] Erythrocyte distribution wid th standard deviationOrdered By: Angel Avitia on 09-26-2024 Erythrocyte distribution width (RBC) [Ratio] 50.9 fl High 35.1-43.9 [facility] Glomerular filtration rate ( GFR) estimation/1.73 sq m using serum, plasma, or whole bOrdered By: Angel Avitia on 09-26-2024 GFR/1.73 sq M.predicted among non-blacks MDRD (S/P/Bld) [Vol rate/Area] 65 mL/min/{1.73_m2} >60 [facility] Comment on above: mL/min/1.73m2 CKD-EP I Creatinine Equation (2020) H AND P Exam - Hospital[facility] 09-26-2024 H&P Exam - Hospitalist Normal [facility] Hematocrit Auto (Bld) [Volum e fraction]Ordered By: Angel Avitia on 09-26-2024 Hematocrit (Bld) [Volume fraction] 30.0 % Low 40-54 [facility] Hemoglobin measurementOrdere d By: Angel Avitia on 09-26-2024 Hemoglobin (Bld) [Mass/Vol] 9.1 g/dL Low 13.0-16.5 [facility] Immature granulocytes/100 WB C Auto (Bld)Ordered By: Angel Avitia on 09-26-2024 Immature granulocytes/100 WBC (Bld) 0.800 % 0.0-0.9 [facility] Comment on above: IG% - Immature Granu locytes (promyelocytes, myelocytes and metamyelocytes) > 1% indicates that a LEFT SHIFT is Present. International normalized rat io (INR) calculationOrdered By: Angel Avitia on 09-26-2024 INR Coag (Bld) [Relative time] 1.0 {INR} [facility] L499.0042on 09-26-2024 Trop T High Sen 42 ng/L High <=22 [facility] Comment on above: Performed By: #### L 499.0042 ####[facility] [address] [place], [address] L499.0043on 09-26-2024 Trop T High Sen 40 ng/L High <=22 [facility] Comment on above: Result Comment: Hemo lysis present, Results??could be affected.?? Performed By: #### L 499.0043 ####[facility] [address] [place], [address] L501.4021on 09-26-2024 Trop T High Sen 47 ng/L High <=22 [facility] Comment on above: Performed By: #### L 300.4310, L100.0100, L501.4021, L500.2500, L300.3900 ####[facility] [address] [place], [address] MCV (mean corpuscular volume ) determinationOrdered By: Angelmelisa Avitia on 09-26-2024 MCV (RBC) [Entitic vol] 79.2 fL Low 80-94 [facility] Mean corpuscular hemoglobin (MCH) determinationOrdered By: Angel Avitia on 09-26-2024 MCH (RBC) [Entitic mass] 24.0 pg Low 27.0-32.0 [facility] Mean corpuscular hemoglobin concentration (MCHC) determinationOrdered By: Angel [facility] on 09-26-2024 MCHC (RBC) [Mass/Vol] 30.3 g/dL Low 32-36 [facility] Mean platelet volume determi nationOrdered By: Angelmelisa Avitia on 09-26-2024 Platelet mean volume (Bld) [Entitic vol] 10.4 fL 6.2-12.0 [facility] Monocyte percentageOrdered B y: Angelmelisa Avitia on 09-26-2024 Monocytes/100 WBC (Bld) 8.7 % 0-10 [facility] Neutrophil percentageOrdered By: [facility] on 09-26-2024 Neutrophils/100 WBC (Bld) 85.3 % High 47-70 [facility] Nucleated red blood cell per centageOrdered By: [facility] on 09-26-2024 Nucleated RBC/100 WBC (Bld) [Ratio] 0 % 0-5 [facility] Partial Thromboplast Timeon 09-26-2024 aPTT Coag (Bld) [Time] 20.8 s Low 24.1-36.2 [facility] Comment on above: Performed By: #### L 300.4310, L100.0100, L501.4021, L500.2500, L300.3900 ####[facility] [address] [place], [place], [id number] Platelet countOrdered By: melisa Avitia on 09-26-2024 Platelets (Bld) [#/Vol] 237 10*3/uL 150-450 [facility] Potassium measurement (mass/ volume)Ordered By: Angel Avitia on 09-26-2024 Potassium (Unsp spec) [Mass/Vol] 4.2 mmol/L 3.3-5.1 [facility] Comment on above: Hemolysis present, R esults could be affected. Prothrombin Time w/INRon INR Coag (PPP) [Relative time] 1.0 {INR} Normal [facility] Comment on above: Performed By: #### L 300.4310, L100.0100, L501.4021, L500.2500, L300.3900 ####[facility] [address] [place], [address] PT Coag (PPP) [Time] 13.1 s Normal 11.7-14.9 [facility] Comment on above: Performed By: #### L 300.4310, L100.0100, L501.4021, L500.2500, L300.3900 ####[facility] [address] [place], [address] Prothrombin timeOrdered By: Angel Avitia on 09-26-2024 PT Coag (PPP) [Time] 13.1 s 11.7-14.9 [facility] RBC Auto (Bld) [#/Vol]Ordere d By: Angel Avitia on 09-26-2024 RBC (Bld) [#/Vol] 3.79 10*6/uL Low 4.6-6.2 [facility] Respiratory Culture/SmearOrd ered By: Nely Brasher on 09-26-2024 Bacteria identified Respiratory culture Nom (Unsp spec) No growth aerobically and anaerobically [facility] STROKE Brain/Head without Co nton 09-26-2024 STROKE Brain/Head without Cont Normal [facility] STROKE CTA Head AND Neck W/C onon 09-26-2024 STROKE CTA Head AND Neck W/Con Normal [facility] Serum creatinine measurement (mass/volume)Ordered By: Angel Avitia on 09-26-2024 Creatinine [Mass/Vol] 1.26 mg/dL High 0.70-1.20 [facility] Serum glucose measurement (m ass/volume)Ordered By: Angel Avitia on 09-26-2024 Glucose [Mass/Vol] 246 mg/dL High 70-99 [facility] Serum or plasma calcium grazyna urement (mass/volume)Ordered By: Angelmelisa Avitia on 09-26-2024 Calcium [Mass/Vol] 9.0 mg/dL 7.6-11.0 [facility] Serum or plasma urea nitroge n measurement (mass/volume)Ordered By: Angelmelisa Avitia on 09-26-2024 Urea nitrogen [Mass/Vol] 31 mg/dL High 4-19 [facility] Sodium levelOrdered By: Angelmelisa Avitia on 09-26-2024 Sodium [Moles/Vol] 138 mmol/L 133-145 [facility] Troponin T.cardiac [Mass/vol ume] in Serum or Plasma by High sensitivity methodOrdered By: Angel Avitia on 09-26-2024 Troponin T.cardiac High sensitivity method [Mass/Vol] 40 ng/L High <22 [facility] Troponin T.cardiac High sensitivity method [Mass/Vol] 42 ng/L High <22 [facility] Troponin T.cardiac High sensitivity method [Mass/Vol] 47 ng/L High <22 [facility] White blood cell (WBC) count Ordered By: Angel Avitia on 09-26-2024 WBC (Bld) [#/Vol] 14.0 10*3/uL High 4.4-11.0 [facility] Aspergillus Galactomannan EI A (Non-Blood Specimen)on 09-25-2024 Galactomannan Ag IA Qn 0.027 NINF - 0.500 [facility] Comment on above: Interpretation: Amber ents [...] Aspergillus Galactomannan EIA is a product of [employer] and is FDA approved for in vitro diagnostic use. Testing Performed at: [facility] [address] [place] [address], [address] [place] [address] [address] [place]: José Harris, PhD BHAVNA ([facility]) CLIA # [id number] FLAG Interpretation: A = Abnormal, H = High, L = Low [facility] Legionella PCR Panelon 09-25 Legionella Pneumo PCR Not detected Not Detected [facility] Comment on above: This test was develo ped and its performance characteristics determined by [employer]. It has not been cleared or approved by the U.S. Food and Drug Administration. Results should be used in conjunction with clinical findings, and should not form the sole basis for a diagnosis or treatment decision. Testing Performed at: [facility] [address] [place] [address], [address] [place] [address] [employer] [place]: José Harris, PhD BCLD (ABB) CLIA # [id number] FLAG Interpretation: A = Abnormal, H = High, L = Low [place].Legionella PCR Not detected Not Detected [facility] Non-gynecological cytology m ethod studyOrdered By: Lyudmila Valentin on 09-25-2024 Laboratory comment [facility] (Report) x8zwxXOfYWCyk3ivPQNzsFP uZzEwMzNcZnRuYmpcdWMxIH tccnRmMVxhbnNpXGRlZmxhb odwABFeAIJ7kdXyOMYhJKN3 LLO9DyGkk8X8KKLiWaYsOOU hCS2odQynQBXwWC9uJRBqV2 mwuF5ygjs6FmPeIJKjOfO6M NJvaaF0Xay8VZBdTKdeo4ht k0GwK4Ata6GeGWm7qLopWeA bFXZdu6sbraIcGzXwEAZsYK IbKKItC85eDECLH818k2vou 9atmkKhrBC0AUCqTCL2YUcv tsLvevK3GGhffYEiUsB1OCb dymHlCMxxdoRzvtMfPhh0YH KyO265YLX2tWzyu5uuPMO7G DYlTZRhWzHjQk1msLHgK425 NGNaVYUQKODqpLz3CUJvguD xwxEskKHIf824V546c4bdWF GqtkWeqBaNfmgwx2ikW426J HBhcGVydzEyMjQwXHBhcGVy mUX4HHLyVH0hsagqMWafKJw fNSGkqnY8FBYruXSqD7VyBL SeYO1eykwtEMX6DIgjTGHoK AX4QvMkZKWso5Ifxbw1BwNq wv7oqa52CGL2n5PetMliENF 7OQV0FzPzBk2ehMGuTDOfIT 3rWhMnoZPvJTQehs03lRkuL MatbhYydG5mRgZpITUqlVVy KRNdTJ3ktHYxVPSqxH6izhp jXHBnYnJkcmhlYWRccGdicm ZtSr0yrMfnNIG9AFjjS1age E0jDjZ1IEmjB6dzkR5tPIc3 TMsyeCR8NJOllG3tJG7fbnh wz3htECueJHyoSJOmqeS4fe W6OPKfcYAtJ3VkoN3vEBFeI Q9mteofv2tdZHM0BOiaQTJb ZAX9OcRaJEAio4Aiywo6WxH ux6XopDVpHQzjM68cj681JO CkxmNjB7hllNKlogojbRVep qxsHKwsklV8AYOdVNNzABbj XGYxXGZzMjBcbGFuZzEwMzN caGljaFxmMVxkYmNoXGYxXG cgX2otUhPfA5RfOREnXzXeE 1ihARJijmlcuS0byPbyxAn0 SZIaytFusvKwNTD7FFZwqKi hNUmgDMZ1nG5zCKKALAHiaV SVLXNzTWAHNFESKQBIWT3OS VIgMTExMDAgRVVDTElEIEFW ZZzmZHKlF8vZJdHUNJ4UGU5 IACJ3XHV2NDT6XWJyjBkrwZ 9uDqRoDnLiImfhWC0nRWUkD 7wxrVZmUDWmOLNsJ2avFmIk uP1agXayOSklbzSaHJHwdu8 7f4cwnAQvHXGjyZIjAeJrGP ZiYXFrw1rfFCKrsLWdQwAxO zNcZnRuYmpcdWMxXGRlZmYw l6tac192mWTvh0fzBEVvXhH 2hYZfYTLbW27fRHXEO230AH BuGTnvg5wps2MxPMJcwDThs 9U8TWSSRKwlHSRBHVq6sPsh V53jv2C3EzwcU4nrVNZrOJK cG6AyEN7wWKNnDxc6YSQ5GP C3GLTfTFDeX0OuLG6tBYEyn EIsGYo9a5slgArlBACmDNV4 z9bmCArmflUoES0nsk6ccFr 2x5xktzDiBXWqVXFcyDQVAB FcA4ZokKhaXh5hmEt4fPsuJ raeQJW7Nkd2KE4mjz83qco6 kYcmAITzstldFoO3TOngLPI uqgicXJe1IXmzYRDfaDO5OX ocGLGrrhG8CJivXBMglIN6G GkfRPPbZyB3IBhkYEZvFNV6 NxXsVFXwi6QqkemfYsUhll7 mxn99HCN5w9PmrEydKYH1SQ D4NmYoFj6nyKJpNJVjUA2lR mMebPMgDLNhfb91zWiwOQmu tzJvtO2xErAvOONikWJbWPU iEL7oeLIjSXLzaI9rqhypQF BnYnJkcmhlYWRccGdicmRyZ x8siZgpLGE7STusW1dxbR0s LlX7GHrwL7crbK8yTKj2PMx veMF9NRJbvV2yTF3nxezpx9 ktErYhUM0hhweqw1qjAvZqS Z7javl2g6ebJdEjAL2ebtio h3htMvRjKSkqVTWluxluRuP vWw4qdCXivIL4OMmiDuobOK dlXHBnbmNvbnRccGduZGVjX HBsYWluXHBsYWluXGYwXGZz YrCrfStjqKcdxQ4hEgSbEjD gUHbbKB2eZGBmQ3wuiEZpUA YsBAXgN6xmSwMowJ6djEthU MhswyXcEGB8NOIqXJUvhLrh DZA4cgPxr94thSmyisTgFIA vcnQsIHRoZSBpbmRpdmlkdW MbNB0tUFers2DiLZdtg9WfQ CBhcyBtYWtpbmcgdGhlIEZp llZuUOzaqCPcbXCrgKK4sX8 tS4EjUWbhy0FuzpWlUZL5uD LgBOCdgRjpsYS8aEK6DQkxe hVyyyZ0uRT5OMYfvTwfnyZk YXNlLiBccGFyfX0= [facility] Work Phone: Laboratory comment [facility] (Report) t3cwpTGhGTIsmXPkAmEwHVW tWNAwf0qsZSQukZJaTuUxVv NcZnRuYmpcdWMxXGRlZmYwe 7ril140hZMnq9cdUFFlXyA8 eUKfYLNuQ20nBKHRH494XOD vDBavm2inl8ApKMVknANbh1 Q7HSCCDZfcJWAJZGo8wYeeI 35py6D6GvdmZ0juIKZaPPEu J1LhNB4kMYLnPcd3OKU5BUX 8MQIlQGVdJ4HmOP4eOONfpO BtWFr4w1ggySquDFYfPXE3e 3sqZGbiuvTcST2aiz2buUh9 l9mruaCmOOWvCVOmcLFRIYZ jE2QdrNctNj3hyAm6uYzrWf ezSSI0Hei0BY9tei06dyb6i HjsUXKvvlyfJvZ4ROxxGNUr ovzbKBm7URzpKXVviMP6GJS vcBSmA7EcQMHoKJ4gxkx6YA Q4VResXCDlJaP8LJZpvGMrM IAtsMwpKFalq013UES2PjGv VB8wL1Vbo7Y5vG3dlQFzQJE oxAViMdZyJADseo9guWOaGC jhm6PwEMM7gqG4jUUfiXZqD UYiKS32Mmgbc6StXymdHSI6 HMPesjVus0Hmh9ciCvJeguI aT1vpY8VxGTPiNFIfHWMiXb UbbdOcl3Etf8MidDTyeZl3s 3fdHPGfAHRwxOnnu0miZYP0 XPVbK6R6xYCmv6aqBQzaHMN qkGQ5hqF4AQGkqIJeT9GxaV 6cNJReWH1gryd6n1ubONO6Q HqgTHVvKmU7heD6LQKcaOEj KMWktCuuGDtzf268BIJ0MdL uHBSgz3TdH0KdqLifK88fbV oqU29zHGGjoKprzG6dpIopx J9nPrGfFmOwVYzwUZHdXJIw YWluXGYxXGZzMjBcbGFuZzE wMzNcaGljaFxmMVxkYmNoXG PbULjwK0ejYeUgIeDcWTAJZ AaVhTlsWVMdK16dnCFuKg3z KbcpX5fxVBqeZZRnRAFqDZp YJDXqT7UcdY8hGrcGTqMTiI luUHJlcAlccGFyIEExLTIJR 01TIFBDUAlccGFyIEExLTMJ BL7JHETGGEUSNBaqX6XIUI8 JXHBsYWluXGYxXGZzMjJcbG FuZzEwMzNcaGljaFxmMVxkY vLiDNMjWOmpA3oiZdFtGhYr MlxwYXJ9 [facility] Work Phone: Pathology report Cancer Narrative Non-gynecologic Cytology Case: [id number] Authorizing Provider: Dick Nguyen MD Collected: 09/24/2024 0837 Ordering Location: [facility] Received: 09/24/2024 1637 Center Pathologist: Lyudmila Valentin MD Specimen: BRONCHO-ALVEOLAR LAVAGE OF RIGHT MIDDLE LOBE, BAL RML [facility] Work Phone: Pathology report final diagnosis Narrative o5owaOGrHIUtvHOmQZPlAFr rtdUqPBNyzWJaC7RslkblRF xmBH0hEB4qnWxfgFAxdNVtL ZMrHbKhu7mlv110vMQfv4jv DZWJutyqcZy4g3iyTGIYHFu lCFKWHRd2wDtpA48mo8G7Nh keP6aeLYYmFGcrpjQnrqS1B YAmwPZgRUk1UYWzdLEqbyEf AaWmWVIrkENcuKP2WJYxVQ8 bjlvqTBbbTDmmVLXqqoK4MX CiuISgA4OhXQYgWS5vylfmW FO0XBmwIOWyTNK3TzAbBKHn c2Ltjus0IgWwtDq1v1zjPXM wMBZsxZelh7ldNVD0AYZmrO BoG2rjkK8kRUUpMB1ntpbrl 3hxZTstFWwnFYLxmDX4zvQ4 YBKdtRCoQ1LipV0wONHkFVY pscVzwNobbE1jWvNoVzGpHX rcBdLngFEkPALnXWCIZ34QN R4mDFwRPF7PEKSsWNUBBYzN KB9GEQJRR7nJZC7KWCQUOML RW7BQSKVDEOoeFm2VVASlzi z2ETPrpJQyVUQeBnapLOSlJ yr6TZMwEsAdN9SeIP6rUH9e bGlnbmFudCBjZWxscyBvciB 6xZUybCSgzjAalIWoq88dOE FyZSBpZGVudGlmaWVkXHBhc iAgICAgICAgICAgICAgTnVt LPIjyCUrjLDesl4zcJImGJO snGTiw4JjnUfyNJJzG7EfHO LzPvqbCsFqZ86FJVT8UVkvK PlfXX0gM6C6iOTgKROsveGn dncckubijWU2QHJ8zjzooJO hsoJicA7qzS8zF1xcbNriHX 3jX1OchRBtit0siQRjYPGcv lxjZjFccGFyXHRhYlxwYXJc dGFiXHBhcn0= [facility] Work Phone: Pathology report gross observation Narrative t4gacEXyZJTgaWSEBMByKLO gJD2ijOefiDh3fNihVTPxez P9kVJdXAggv1opJKB5j6yul bLPYoqvHPOiFL6mXCbhCBQi HS9tXzUyRKZhVcXnYNJxtEV gamDvMrSwVODhhYUhqEC5WB DgCK8anopxYAicDSsgJLOdu lI8MTDooWKrM5RhGYYlWR1a hhlaJCF6DYEOXdxuCw9pvHM ibCANCntcZjFcZmNoYXJzZX FfXAOsn6rivpGRagczyHb1M Xv5RZFnRVCmkCRdf1I4VIzc s8sqe7HfF3Vmm2RwXVg0iL5 CBbsbAIV2WMRLXcyxWlsivC jdo8QxjHOmAPBcMXwzhDLmL TEwMDAgXFxkYiBPVlIgIiAy LKQ0BWR5FYYyGHt4TOweVwF BYJM0UAN8PediLZw8JZknRB xuaCBcXHQgMSBcXGZsIFxcb zZ4z6wyGVTisXWgJGR2NRvx l2jhSJsvAEQ1CXTrWpDqEBL pAL6SPiKkVBA7KYH6HPW3Ba G7FIl5OWEWMaFaPpQeKfKpI PvmHcMaNFf0GWg4XGqRDkGh VdOkIaY3PhHyCHW2VIL2WKf juQSnVBigo3DiPcCaOBIwTX scxgQ1AXPbgzItRInsqVrcq Q6mZbJcWpQzLODQKvMUEm5R K3kNJWKBLuWNTITIKMcEWuW HRSBPRiBSSUdIVCBNSURETE AjGQ4WIK5syQpqoW8qmKDtE 2hcZnMyMlxwYXIgDQpccGFy ZCANClxwbGFpblxsdHJjaFx evaCiSGWxrTUJABQ9YM1qRK ANClxsdHJwYXIgDQpcZnMyM CBSZWNlaXZlZCAxMCBtbCBc uVNniVZgiDbgRhsmuIY2DOf tPtzlbB4mxHAQTHIJGmfZZg brmkXwJE8GEMOIQsSTER92U lZxNXG7CGblzQdqCtcanfHp bRHfAgLXpQ4tf1kbcsknu9X 3UQExOOosk9dfIUZbGOcuh6 PrFMaHQUTRRW0JWP9dsKD7R XfZSRENHDxlZWNfS6vuwVD4 h4dnsWVtw5q2GTzkCGO9gVp wbGFpblxsdHJjaFxmczIwIC CfuERsyUPmiEgpWtibxXA8T UkwNcjkqZ3rlGBNDFGGKdmG IhqncuRtIN3XZBMAFpDNKR6 8MsIvKSA2UgoblAjmRnrmkl GxkIQbEdAOaC8ayA70WOp9Z PAuGCoyh9ayGSBzIYudi7Yy ZJjRVAYFDG4PUN4yzWH0CSe KWKXYMCrxHIHwTKlcqAN6a5 icaFEyg5x2TMyqECK2xEqqg GFpblxsdHJjaFxmczIwICBm bHVpZCBccHJvdGVjdHtcZml nrDM3BWckZqfcfC3guAGCUH XKKfhHHcsmhoKzED4MGDOHR pLUQW98BhCwLHZ7U1dsxKbi TpajhsBfqYEwIaMPmY18cFR cq8yaiIIzHOygBxyupGLrww A8HJuRIKXBAWbJAbHvZR0tO WaIO6WQJzK0NbOgMMS4U1ut fXtcZmxkcnNsdCBcJzFDfX1 xxQivgT1zdHGzG5yjMbQrAM HyzKRsxInclLDoAHetFTU6L SPqbFBbRDPiu0TmD8B2QPOd SFhtw5nmBXMsZLljp7RxLCk QHWIFPV2VKN9wnXT4SEbFLX BHJ1rOxFV8RikzwGA3PC65A GIfKNYurPKyWJwhF418W6Me w8xbgUWdUYdmKqlhqWEegrV 1XUmVCQDOZYtIGlZaUI2rAP xWB5KDGbX0DlX7JLA7JCz1q XyuUcndshLjkXHqBeGQnR0s rBfdkA1psJPvK4gfIyDxBVO sWrTxbXWjXR7JNEHxBvGwVC LzK9giZXJzDS1HDAFoAQqmp sAnTYKkB88yw2SHt8Sce8dl mImuz6GfvXSqPU51NZYvvQW bAWJ2GF4xgHblBGXkPOthgM FyZCANClxwbGFpbiANCn0= [facility] Work Phone: Resident Review a4sxuVRaSFShhWJbNCVq MVx ojxUnPPZgaSNnA9GghlewME mtJI4rDM4mcLyejLXyxQVzM FYjHyCsa6ojk180hBSjz3xn CKYYjzjqdFj7kQstW90pc4G 3FffmO62ymHXpJTI8MSXrYR KgoKAfCQWeCJO3WUMpqLAxZ 7wwENNcXP8bhomsNPcbOOkk LQIwxPM9ROBzwMAuD2IdHOO cWHpkORCmamo6FhLoMc5muW VyeTcyMFxwYXJkXHBsYWluX CWgSdCiMObiZHzta5BeCVOf LA2vtgVobTOtp6Ive9GhKvS oqR9niQ2nbeE1KVRuZGLwvo rkx9LcQNerMRNtjuh0nsS3n U2tSWzdxKaaxHA3iG0pp6g4 HSLbw9yuBS08TKTKkQHabrx iKUtuST2WDyppSWHktLDpBG xwYXJ9 [facility] Work Phone: [facility] Work Phone: Pathologist review [facility] (Unsp spec) [Interp]Ordered By: Cat Gunter on 09-25-2024 Pathologist Review-Cell Count, Fluid Predominantly macrophages with some foamy and hemosiderin-laden forms. [facility] Work Phone: Comment on above: Electronically taurus d out by Cat Gunter MD on 09/25/24 at 10:24 AM. By the signature on this report, the individual or group listed as making the Final Interpretation/Diagnosis certifies that they have reviewed this case. [facility] Work Phone: Surgical pathology studyOrde red By: Sanchez Hernandez on 09-25-2024 Laboratory comment [facility] (Report) s8nhdXKzUXOap5awQIDvyFA uZzEwMzNcZnRuYmpcdWMxIH oqtzPbAIvdi4NqY2BxXrTqI FxhbnNpXGRlZmxhbmcxMDMz FNV8htJcJGQoEAgdOSFnPTc sKx0cgXNenUnnVrRvITKgm5 ddnzSVDVjhUUCDYNk6s9dqZ MDyHaR1pKFhAAhlV6vktdHa pMDcK3Wix7YlMVq9kL54EDO ywG1flMXwXTuitiJvQlC7EU kyEHUcDbN8QQJszVHoGVLkN 1xyZWQwXGdyZWVuMFxibHVl GUL8eJkdf1J5gOJfaCXpiEj aOvEjUkIxAlMOo3GnWZm6zL evE5CoLKYmOqK8fEDrJYEiD LyoDLPvKSJzesE9rN38HAff xeU1vQBiv9Mpk36we684hU4 seXXdKFG5FHZkHUFfwYHqCD XxTKU1LQZrzUBmO6vbLxIkx WRjW7MvFrNoqCLnG4YkJcGu jIXmV9FmZlTunEFeDSHazOL 8CGizd377GCA6MxGfFA7cG3 Wpv5G5bF9hlUOtMBOidEPsT yYdPMBdkq2uaTRjCBcsn4Il HCT3haI3wHKstOKzNWGbCN8 0Odhnf3SwDwnlUGI7TQRdpz Tfy0Znm0vxDwCsbfFbF5bgV 2JyZHJoZWFkXHBnYnJkcmZv q9Mti8JhaNEclGz1s2bwNFY gQMDlyJctl4ifXGB7RKCwB5 Y2dXUlt6bhIVjiFBDhhLW3w gY3URfiTQKhjsI7vtC4IYgh YFErtYK9yiP8JGpdKIMjVrJ 6gaK8SFryYZKyZTB4IkXtOG Hja7VqmextErOxk9EauVRpE LttZ33uy652VZOsvpKkD6fr bGFpblxwbGFpblxmMFxmczI 0XHFsXHBsYWluXGYxXGZzMj BcbGFuZzEwMzNcaGljaFxmM XqjFgRfQGXtHEucQ3oyUqTt PyEnUQNXnKA9eWUyu5zhacB 7lHCpQO0oIZQdoMNxrkMyt1 M3DLP2wNCtmM9bpFNeRULdi GOskqKtfq93hFMczCL6KVXy GYYjqEMtuM4iOOOsNWFQzE1 hbCBJbnRlcnByZXRhdGlvbi 1NeVJpmc7usDHoP6OvvMniq WVzIHRoYXQgdGhleSBoYXZl DJUdswiny7KfQIHjhGHaZ5J vKK5pEYUbid33 [facility] Work Phone: Pathology report Cancer Narrative Surgical Pathology Case: [id number] Authorizing Provider: Dick Nguyen MD Collected: 09/24/2024 0817 Ordering Location: [facility] Received: 09/24/2024 1142 Center Pathologist: Sanchez Hernandez MD Specimen: TRANSBRONCHIAL BIOPSY, Right Lung Cryo TBBX [facility] Work Phone: Pathology report comments [Interpretation] Narrative a4kyvOPhGLCxsFMwPIAoMRe ympSlXBWsqYOhV4WhkpndNJ xqJO0rWF5nrNnsdSGflGCpB GOqErFyu8dew754qZWnu1db QENTxkelkAj3xZwkA93sc4Q 0WnqjD24kzCKiBTW3KDIjTS YngTYeJHTaYYJ7QVClyAWyI 7ceTGSvVZ7ranxkISdgSScq BSXuhZX2FZFkgILeF4AmSBS nFNvlZIXbbvj6ZwZyRj2rcG VyeTcyMFxwYXJkXHBsYWluX JDcHsUpMZsiIGWai9MpqIEt m67qaYT0snQlRoA2zHKjNDN fqrKhaNCiqYOyn5OxLJi3UO 9cYSMfYVSdrE7lBBSxucLpD 5s1tGEos7ksg5cnRiI1KM4w y7ZvyCd7LPftkVUlo0qgjaQ jjGNqdV70KYOvvDt4kZAqEZ NtPH7uMWCkUZK8owRcnkNin WVudHMgZGlzcGxheSByZWxh uTg7IOh0BWCxDMFkhqRsWKA kpnGbwFGlU4M0tfUxDHattN vdNU5zQIZqibZbwJXdbXMdo LfxFwq4ucNsqeTnavW7sXKt GKixDxknxn3ocPMlb8l8iNH taIZ6qZDyfgGsb6IqvGjaFc YtFgY4sXCnjTXnLrMoNMJhw nQnuM5kWnVUGDFjZHFzTQBb BIPjaaEeek1nfbrbVc0wOYF uJdGwXuxuo3RyJvPru7QeCT FyZSBpZGVudGlmaWVkLCBhb yZdcUfbUURkKRObf2S4cKEr NLNleO6dq7UjJOGdGPTqETP 4yRHdKQXjZA4wERYvIMTkDO NlIGZpbmRpbmdzIHJhaXNlI MNsuoWpri5yCd7zWQPxF5hj d25iZsVhmFWfb4IfzsbtkN0 1ZYHukIq2uDQkSBIxLVLzj4 2qQND9gQEcFHUgMTL1djSvX HS0U5upz6JzgoHzm9YimAX6 PTkhjL65WBHoyDf4rPFiCOV lEMIfa10gHUBoENfHPB1aSp RylV1yn3kpXqMqr1HfRRfnh ZelimUkexCfLCMvxU5ebgLf AAR8jiXov4Ylc2HwoAdvSBS 4dGVudCBhbmQgZGlzdHJpYn L9sP8aTH7fSEXxUEGfUPAbF E3oNASeGp7fQYM4iiGrDFBr H5xqahAsqRZluZwtxBtfcm7 ccGFyfQ== [facility] Work Phone: Pathology report final diagnosis Narrative s1igfLIhZMKyeSXpJJBhTXi sdvLhJEQchRHuM3AdicprZV lzRA9lGP1kaPnjdVTmlNRbA EBmHrDyz0uoo224fZLhs5wo NISTispvbAm8gJqwU88hn9U 8HkonN3nyCCDdIOwpCMHgON zhoFXtHHr6CDIxcMOfsfYaU hQaGYAuuBWmwVL7BPGuYB3e zwsgTOtfJKeoZRZqoaH3IXC hcVHgQ3DqTOZuAB4ovrmuAS K3MVspWYNmIVI3XgNaXSUhg 4Zzgku6GeKkrEy4w3gsGCUf UTWumAehx1iyFEI0GQGysYH fU0jriN7eNKKyTI9cektzd7 vuDGviLYcqOGPtpAA7wbB9U LIykNAmS9AhfS4mSGGzNZHg heLjoHwfrJ1xBehrngVbPBN tGGlVKgsaSBWDO7iIRqXUIR 8HK8a3KIWmORNrQ7WuOZPkW VwyUTDsTM8lGFEvKlNyPQPz knMfgK2uAIkpaNhvOh6zPUj nhC28BRDifIu0tLKbGZLrUy Dva2jeWPNiKLDvfKB1oGAtj aRph6BwlDbrHg7rA5GqPKQf wI4bocSgoOGitT== [facility] Work Phone: Pathology report gross observation Narrative z2bdiWAfGRJezZZHJMGdDVP yOF8ziYbbpPk1bSbjUGSgny G5pUOdIStdd3wpEWS0z7grt hKGDnvgQFCzNM9tMAfiBRXk BF1iTwMrZEOrQcRwSDIfyPP pgfHrAiPaMGEjhFQtuSW9JO KqWK8hkxvsPCqbQVucXWNec cS0TGHlqRPmC9GnYRZuUD4v bfnqELX5GURRQoqlNj9enYD ibCANCntcZjFcZmNoYXJzZX RmMRMtf9gwzpWVKSppIZMBX Ut3EMo0IGLkDAHppFVhp3V3 QXqxf7beq1BnEXGdPLk6bX0 BOmtjXBN5YSCRUvvlIexjiA umj0EgoORsDVCxUMbapIRiL TEwMDAgXFxkYiBPVlIgIiAy BIIwZWZpPKYuLKi9PTjnLxM KUMM6YPY5RxUyAWv0RRebYT xuaCBcXHQgMSBcXGZsIFxcb kW5w1uzBFHkbHRmNDM4JQgv z4tvECkbLFI4HZJdJkSzXWV cDD8ZKlGrHFA9ISI0LTZoGn A6KDj8DADXUtGfBhApQdJxV QluHdDtVCo6NVp8KNaZVlAx RmCnUHLzYPR8OYV1UUS0LGr gngwaNXb1SGIpMKozlzSnMP toWcoaVWzjY23zuWKkRJWNT lxwbGFpblxlcGljTmVzdERv ZeLgHEqgoCEkcHWmIY2NTYa 0cmNoXGYyXGZzMjAgQTogUm FiCMb0RLSraR7zHp2ltXDgf Z8xYZoaHeFzRGAwj8d7kFS2 fKZzaNH8qCMqbHiuRoOwRI7 ujVYxGN6bPIkld3ApaJJnNM 80oCZbajBredIhKbHzQ7h6L Ik4glioN1H6ksPBLdQYEaoc XOVfWB79lLFunYpdNJLigbx vf2fjpHJjSSYqCiZiwYbil9 TjRNGxGApjEP56vdUgR5hdV HosvUfzZtY9jzTxCfnzvCRz PsHiaGGcYfNoL75pZBGvBHJ fcHPrqZ3dzjEvfxXgxEVtfX N2GIAawI2rjL08qvVaptIqh wXuQ2Gbe6S2kFWnNQHtosHK CyWFEguoDOYrEBaxh6GuJWy lcGljWHNhMzAgDQogDQpcZX TvE14xj1JPi6Riw0cwvNsdd 4VomSEkXZ54HPPwwMZxGYT3 AP8ppBpjKKQtXEwvsMMyTAG NClxwbGFpbiANCn0= [facility] Work Phone: [facility] Work Phone: ASPERGILLUS GALACTOMANNAN EI A (NON-BLOOD SPECIMEN)on 09-24-2024 Galactomannan Ag IA Qn 0.027 Normal <0.500 Un [facility] Comment on above: Result Comment: Inte rpretation: [...] Aspergillus Galactomannan EIA is a product of [employer] and is FDA approved for in vitro diagnostic use. Testing Performed at: [facility] [address] [place] [address], [address] [place] [address] [place]: José Harris, PhD BHAVNA (ABB) CLIA # [id number] FLAG Interpretation: A = Abnormal, H = High, L = Low Performed By: #### A SPQN ####[facility] ([id number])[address] [place] [address] BASIC METABOLIC PANEL WITH A NION GAPon 09-24-2024 Calcium [Mass/Vol] 8.7 mg/dL Normal 8.6-10.3 [facility] Comment on above: Order Comment: FASTI NG:NO FASTING: NO Performed By: #### 2 27, 4418, 4420, 45785, 809, 52832, 374 #### [facility] [address], [address] [place] [address] Studio Operator: Octavio Segovia MD #### [phone], [phone] #### [facility], [address] [place] [address] Studio Operator: Alejandra Queen MD,PhD,FADIA #### [id number] #### [facility]/[address] [place], [place] Studio Operator: Waldemar Billy M.D.,PhD Chloride [Moles/Vol] 102 mmol/L Normal 98-110 [facility] Comment on above: Order Comment: FASTI NG:NO FASTING: NO Performed By: #### 2 27, 4418, 4420, 92782, 809, 48594, 374 #### [facility] [address], [address] [place] [address] Studio Operator: Octavio Segovia MD #### 73801, 16390 #### [facility], [address] [place] [address] Studio Operator: Alejandra Queen MD,PhD,FADIA #### [id number] #### [facility]/[address] [place] Studio Operator: Waldemar Billy M.D.,PhD CO2 [Moles/Vol] 20 mmol/L Normal 20-32 [facility] Comment on above: Order Comment: FASTI NG:NO FASTING: NO Performed By: #### 2 27, 4418, 4420, 98638, 809, 68295, 374 #### [facility] [address], [address] [place] [address] Studio Operator: Octavio Segovia MD #### 12687, 91519 #### [facility], [address] [place] Studio Operator: Alejandra Queen MD,PhD,FADIA #### [id number] #### [facility] [address] [place], [place] Studio Operator: Waldemar Billy M.D.,PhD Creatinine [Mass/Vol] 1.49 mg/dL High 0.70-1.35 [facility] Comment on above: Order Comment: FASTI NG:NO FASTING: NO Performed By: #### 2 27, 4418, 4420, 66996, 809, 38255, 374 #### [facility] [address], [address] [place] [address] Studio Operator: Octavio Segovia MD #### [phone], 10228 #### [facility], [address] [place] Studio Operator: Alejandra Queen MD,PhD,FADIA #### [id number] #### [facility] [address] [place] Studio Operator: Waldemar Billy M.D.,PhD ELECTROLYTE BALANCE 14 mmol/L (calc) Normal 7-17 [facility] Comment on above: Order Comment: FASTI NG:NO FASTING: NO Performed By: #### 2 27, 4418, 4420, 09592, 809, 09822, 374 #### [facility] [place] [address] [facility], [address] [place] [address] Studio Operator: Octavio Segovia MD #### 06347, 06678 #### [facility], [address] [place] [address] Studio Operator: Alejandra Queen MD,PhD,FADIA #### [phone] #### [facility] [address] [facility] [place], [place] Studio Operator: Waldemar Billy M.D.,PhD GFR/1.73 sq M.predicted among non-blacks MDRD (S/P/Bld) [Vol rate/Area] 53 mL/min/{1.73_m2} Low > OR = 60 [facility] Comment on above: Order Comment: FASTI NG:NO FASTING: NO Performed By: #### 2 27, 4418, 4420, 44970, 809, 71549, 374 #### [facility] [address], [address] [place] [address] Studio Operator: Octavio Segovia MD #### 53451, 35592 #### [facility]/[address] [address] Studio Operator: Alejandra Queen MD,PhD,FADIA #### 32483 #### [facility] [place], [place] Studio Operator: Waldemar Billy M.D.,PhD Glucose [Mass/Vol] 304 mg/dL High 65-99 [facility] Comment on above: Order Comment: FASTI NG:NO FASTING: NO Result Comment: Fasting reference interval For someone without known diabetes, a glucose value >125 mg/dL indicates that they may have diabetes and this should be confirmed with a follow-up test. Performed By: #### 2 27, 4418, 4420, 66449, 809, 79066, 374 #### [facility] [address], [address] [place] [address] Studio Operator: Octavio Segovia MD #### 57788, 58541 #### [facility], [address] [place], [place] [address] Studio Operator: Alejandra Queen MD,PhD,FADIA #### [id number] #### [facility]/[address] [place], [place] Studio Operator: Waldemar Billy M.D.,PhD Potassium [Moles/Vol] 4.8 mmol/L Normal 3.5-5.[address] [facility] [address] [facility] Comment on above: Order Comment: FASTI NG:NO FASTING: NO Performed By: #### 2 27, 4418, 4420, 33248, 809, 54959, 374 #### [facility] [place] [address], [address] [place], [place] [address] Studio Operator: Octavio Segovia MD #### 89652, 13587 #### [facility]/[place] [address] Studio Operator: Alejandra Queen MD,PhD,FADIA #### 12605 #### [facility]/[address] [place], [place] Studio Operator: Waldemar Billy M.D.,PhD Sodium [Moles/Vol] 136 mmol/L Normal 135-146 [facility] Comment on above: Order Comment: FASTI NG:NO FASTING: NO Performed By: #### 2 27, 4418, 4420, 21879, 809, 14602, 374 #### [facility] [address], [address] [place] [address] Studio Operator: Octavio Segovia MD #### 96339, 72038 #### [facility], [address] [place] Studio Operator: Alejandra Queen MD,PhD,FADIA #### 31542 #### [facility]/[address] [place] Studio Operator: Waldemar Billy M.D.,PhD Urea nitrogen [Mass/Vol] 36 mg/dL [facility] 10-23 [facility] Comment on above: Order Comment: FASTI NG:NO FASTING: NO Performed By: #### 2 27, 4418, 4420, 58592, 809, 47643, 374 #### [facility] [address], [address] [place] [address] Studio Operator: Octavio Segovia MD #### 61167, 45806 #### [facility], [facility] [place] Studio Operator: Alejandra Queen MD,PhD,FADIA #### 82907 #### [facility] [address] [place] Studio Operator: Waldemar Billy M.D.,PhD Urea nitrogen/Creatinine [Mass ratio] 24 mg/mg [facility] 09-20 [facility] Comment on above: Order Comment: FASTI NG:NO FASTING: NO Performed By: #### 2 27, 4418, 4420, 93024, 809, 05078, 374 #### [facility] [address], [address] [place], [place] [address] Studio Operator: Octavio Segovia MD #### 20618, 40456 #### [facility], [address] [place], [place] Studio Operator: Alejandra Queen MD,PhD,FADIA #### 05395 #### [facility]/[place] [address] [facility] [address] [place], [place] Studio Operator: Waldemar Billy M.D.,PhD BRONCHOSCOPYon 09-24-2024 BRONCHOSCOPY Table formatting fro m the original result was not included. Images from the original result were not included. Bronchoscopy Operative Report [facility] Date of procedure: 09/24/24 Patient: Krunal [...] INDICATION: Obtain diagnosis BRONCHOSCOPIST: Dick Nguyen MD Professor Of Historical Theology: Maeve Pringle MD PROCEDURES PERFORMED: Flexible Bronchoscopy Cryo Transbronchial Biopsy using 1.7 cryoprobe 7 Trinidadian Osmani renuka placement in RLL and RML BAL RML Events Procedure Events Event Event Time ENDO SCOPE IN TIME 09/24/2024 8:05 AM ENDO SCOPE OUT TIME 09/24/2024 8:40 AM POST-PROCEDURE DIAGNOSIS: Interstitial Lung Disease ANESTHESIA: GETA. See separate anesthesia provider documentation. This procedure was performed using standard monitoring procedures in [facility] Endoscopy Suite. Medications See [...] bronchoscopy was performed via ETT. A 7 bulgarian renuka was placed outside of the ETT [...] cryo transbronchial biopies and placement of 7 bulgarian renuka. The procedure required more time than usual to perform. After diagnostic/therapeutic maneuvers, the airway was examined for evidence of bleeding. None was noted. The bronchoscope was removed from the patient's airway and the airway was handed back over to my colleagues from anesthesiology. SPECIMENS: ID Type Source Karly (more content not included)... Normal [facility] Comment on above: Order Comment: [facility] hoscopy Scheduling Request Pre-bronchoscopy visit: Not needed with Dr Padron Please schedule procedure: After September 11, 2024 Cytology on-site: No Location: [facility] ([facility] Performing physician: Dick Nguyen MD or interventional pulm (cryo ILD biopsies) Referring physician: Rosalino Padron MD, Radha Khan MD Indication: undifferentiated ILD Sedation / Anesthesia: GA Procedure: Airway exam, BAL, TBBx, Rigid, 7 bulgarian renuka with rigid, if too hypoxic then 8.5/9 ETT with 5 bulgarian renuka Time: Tier 2 Fluorscopy: Yes Imaging [...] 09/26/2024840 Result Status: Final result Resulting Lab: [facility] [address] [place] [address] CULTURE No growth aerobically and anaerobically STAIN (2+) Few Polymorphonuclear leukocytes No organisms seen Normal [facility] Comment on above: Performed By: #### 3 2355-0 #### MICHAEL Ho ([id number]) [facility] ([facility]) [address] [place] [address] Bronchoscopy studyon 025 Addendum by Dick Davis am, MD on 09/24/2024 9:35 AM EDT Table formatting from the original result was not included. Images from the original result were not included. Bronchoscopy Operative Report [facility] Date of procedure: 09/24/24 Patient: Krunal [...] INDICATION: Obtain diagnosis BRONCHOSCOPIST: Dick Nguyen MD Professor Of Historical Theology: Maeve Pringle MD PROCEDURES PERFORMED: Flexible Bronchoscopy Cryo Transbronchial Biopsy using 1.7 cryoprobe 7 Trinidadian Osmani renuka placement in RLL and RML BAL RML Events Procedure Events Event Event Time ENDO SCOPE IN TIME 09/24/2024 8:05 AM ENDO SCOPE OUT TIME 09/24/2024 8:40 AM POST-PROCEDURE DIAGNOSIS: Interstitial Lung Disease ANESTHESIA: GETA. See separate anesthesia provider documentation. This procedure was performed using standard monitoring procedures in [facility] Endoscopy Suite. Medications See [...] bronchoscopy was performed via ETT. A 7 bulgarian renuka was placed outside of the ETT [...] cryo transbronchial biopies and placement of 7 bulgarian renuka. The procedure required more time than usual to perform. After diagnostic/therapeutic maneuvers, the airway (more content not included)... [facility] Work Phone: [facility] Work Phone: Radiology Study observation (narrative) [facility] Work Phone: CBC (H/H, RBC, INDICES, WBC, PLT)on 09-24-2024 Erythrocyte distribution width (RBC) [Ratio] 16.0 % High 11.0-15.0 [facility] Comment on above: Performed By: #### 2 27, 4418, 4420, 92890, 809, 09701, 374 #### [facility] [place] [address] Studio Operator: Octavio Segovia MD #### 53422, 63663 #### [facility], [address] [place] [address] Studio Operator: Alejandra Queen MD,PhD,FADIA #### 66600 #### [facility]/[address] [place], [place] Studio Operator: Waldemar Billy M.D.,PhD Hematocrit (Bld) [Volume fraction] 33.0 % Low 38.5-50.0 [facility] Comment on above: Performed By: #### 2 27, 4418, 4420, 31329, 809, 55994, 374 #### [place] [address] Studio Operator: Octavio Segovia MD #### 17504, 09078 #### [facility], [address] [place] [address] Studio Operator: Alejandra Queen MD,PhD,FADIA #### 74737 #### [facility]/[address] [place], [place] Studio Operator: Waldemar Billy M.D.,PhD Hemoglobin (Bld) [Mass/Vol] 9.4 g/dL Low 13.2-17.1 [facility] Comment on above: Performed By: #### 2 27, 4418, 4420, 92139, 809, 11453, 374 #### [facility] of [address], [address] [place] [address] Studio Operator: Octavio Segovia MD #### 29876, 67341 #### [facility]/[place] [address] Studio Operator: Alejandra Queen MD,PhD,FADIA #### 05668 #### [facility]/[address] [place], [place] Studio Operator: Waldemar Billy M.D.,PhD MCH (RBC) [Entitic mass] 23.4 pg Low 27.0-33.0 [facility] Comment on above: Performed By: #### 2 , 4198, 4420, 89797, 809, 18939, 374 #### [facility] [address], [address] [place] [address] Studio Operator: Octavio Segovia MD #### 47063, 86832 #### [facility]/[place] [address] Studio Operator: Alejandra Queen MD,PhD,FADIA #### 82400 #### [facility]/[address] [place], [place] Studio Operator: Waldemar Billy M.D.,PhD MCHC (RBC) [Mass/Vol] 28.5 [...] Performed By: #### 2 , 4418, 4420, 20687, 809, 64850, 374 #### [facility] [address], [address] [place], [place] [address] Studio Operator: Octavio Segovia MD #### 75024, 73115 #### [facility], [address] [place] Studio Operator: Alejandra Queen MD,PhD,FADIA #### 57788 #### [facility]/[place] [address] [facility] [address] [place], [place] Studio Operator: Waldemar Billy M.D.,PhD MCV (RBC) [Entitic vol] 82.1 fL Normal 80.0-100.0 [facility] Comment on above: Performed By: #### 2 27, 4418, 4420, 29828, 809, 42768, 374 #### [facility] [address], [address] [place] [address] Studio Operator: Octavio Segovia MD #### 01721, 49844 #### [facility], [address] [place], [place] Studio Operator: Alejandra Queen MD,PhD,FADIA #### 77399 #### [facility]/[place] [address] [facility] [address] [place] Studio Operator: Waldemar Billy M.D.,PhD Platelet mean volume (Bld) [Entitic vol] 10.4 fL Normal 7.5-12.5 [facility] Comment on above: Performed By: #### 2 27, 4418, 4420, 23284, 809, 21809, 374 #### [facility] [address] [place] [address] Studio Operator: Octavio Segovia MD #### 05066, 25673 #### [facility], [address] [place] Studio Operator: Alejandra Queen MD,PhD,FADIA #### [phone] #### [facility]/[place] [address] [facility] [address] [place], [place] Studio Operator: Waldemar Billy M.D.,PhD Platelets (d) [#/Vol] 259 10*3/uL Normal 140-400 [facility] Comment on above: Performed By: #### 2 27, 4418, 4420, 25985, 809, 98469, 374 #### [facility] of [address], [address] [place] [address] Studio Operator: Octavio Segovia MD #### 24228, 48502 #### [facility], [address] [place] [address] Studio Operator: Alejandra Queen MD,PhD,FADIA #### 64889 #### [facility]/[address] [place], [place] Studio Operator: Waldemar Billy M.D.,PhD RBC (d) [#/Vol] 4.02 10*6/uL Low 4.20-5.80 [facility] Comment on above: Performed By: #### 2 27, 4418, 4420, 83386, 809, 32323, 374 #### [facility] of [address], [address] [place] [address] Studio Operator: Octavio Segovia MD #### 75079, 03722 #### [facility], [address] [place] [address] Studio Operator: Alejandra Queen MD,PhD,FADIA #### 47193 #### [facility]/[address] [place] Studio Operator: Waldemar Billy M.D.,PhD WBC (Bld) [#/Vol] 12.8 10*3/uL High 3.8-10.8 [facility] Comment on above: Performed By: #### 2 27, 4418, 4420, 11273, 809, 44381, 374 #### [facility] [address], [address] [facility] [place] [address] Studio Operator: Octavio Segovia MD #### 63506, 55004 #### [facility], [address] [place] [address] Studio Operator: Alejandra Queen MD,PhD,FADIA #### 14589 #### [facility] [address] [facility] [place] [address] Studio Operator: Waldemar Billy M.D.,PhD Cell count panel (Body fld)O rdered By: Johanna Prieto on 09-24-2024 Clarity (Body fld) Clear Clear [facility] Color (Body fld) Colorless Colorless, Straw, Yellow [facility] RBC Auto (Body fld) [#/Vol] /uL see comment /uL [facility] WBC (Body fld) [#/Vol] 0.022 10*3/uL See Commen t [facility] Body Fluid cell coun t reference ranges have not been established by [facility]. Reference ranges provided are based on published references. This test was developed and its performance characteristics determined by [facility]. It has not been cleared or approved by the [place] Food and Drug Administration. [facility] Cell count panel (Body fld)o n 09-24-2024 Clarity (Body fld) Clear Normal Clear [facility] Comment on above: Order Comment: Body Fluid cell count reference ranges have not been established by [facility]. Reference ranges provided are based on published references. This test was developed and its performance characteristics determined by [facility]. It has not been cleared or approved by the [place] Food and Drug Administration. Performed By: #### 3 4556-1 #### MICHAEL Ho ([id number]) [facility] ([facility]) [address] [place] [address] Color (Body fld) Colorless Normal Colorless, Straw, Yellow [facility] Comment on above: Order Comment: Body Fluid cell count reference ranges have not been established by [facility]. Reference ranges provided are based on published references. This test was developed and its performance characteristics determined by [facility]. It has not been cleared or approved by the [place] Food and Drug Administration. Performed By: #### 3 4556-1 #### MICHAEL Ho ([id number]) [facility] ([facility]) [address] [place] [address] RBC Auto (Body fld) [#/Vol] <2000 Normal see comment [facility] Comment on above: Order Comment: Body Fluid cell count reference ranges have not been established by [facility]. Reference ranges provided are based on published references. This test was developed and its performance characteristics determined by [facility]. It has not been cleared or approved by the [place] Food and Drug Administration. Performed By: #### 3 4556-1 #### MICHAEL Ho ([id number]) [facility] ([facility]) [address] [place] [address] WBC (Body fld) [#/Vol] 0.022 10*3/uL Normal See Maru t [facility] Comment on above: Order Comment: Body Fluid cell count reference ranges have not been established by [facility]. Reference ranges provided are based on published references. This test was developed and its performance characteristics determined by [facility]. It has not been cleared or approved by the [place] Food and Drug Administration. Performed By: #### 3 4556-1 #### MICHAEL Ho ([id number]) [facility] ([facility]) [address] [place] [address] Differential panel (Body fld )on 09-24-2024 Cells Counted Total (Body fld) [#] 100 [facility] Eosinophils/100 WBC Manual cnt (Body fld) 1 % see comment [facility] Comment on above: BAL Reference Range: <1% Lymphocytes/100 WBC Manual cnt (Body fld) 21 % see comment [facility] Comment on above: Synovial/Peritoneal/ Pericardial/Pleural Fluid Reference Range: <75% BAL Reference Range: <10% Monocytes+Macrophages/1 00 WBC Manual cnt (Body fld) 53 % see comment [facility] Comment on above: Synovial/Peritoneal/ Pericardial/Pleural Fluid Reference Range: <70% BAL Reference Range: 87-100% Neutrophils/100 WBC (Body fld) 25 % see comment [facility] Comment on above: Synovial/Peritoneal/ Pericardial/Pleural Fluid Reference Range: <25% BAL Reference Range: <2% Body Fluid cell differential reference ranges have not been established by [facility]. Reference ranges provided are based on published references. This test was developed and its performance characteristics determined by [facility]. It has not been cleared or approved by the [place] Food and Drug Administration. [facility] Cells Counted Total (Body fld) [#] 100 Normal [facility] Comment on above: Order Comment: Body Fluid cell differential reference ranges have not been established by [facility]. Reference ranges provided are based on published references. This test was developed and its performance characteristics determined by [facility]. It has not been cleared or approved by the US Food and Drug Administration. Performed By: #### 2 9580-8 #### MICHAEL Ho ([id number]) [facility] ([facility]) [address] [place] [address] 79343 Eosinophils/100 WBC Manual cnt (Body fld) 1 % Normal see comment [facility] Comment on above: Order Comment: Body Fluid cell differential reference ranges have not been established by [facility]. Reference ranges provided are based on published references. This test was developed and its performance characteristics determined by [facility]. It has not been cleared or approved by the US Food and Drug Administration. Result Comment: BAL Reference Range: <1% Performed By: #### 2 9580-8 #### MICHAEL Ho ([id number]) [facility] ([facility]) [address] [place] [address] Lymphocytes/100 WBC Manual cnt (Body fld) 21 % Normal see comment [facility] Comment on above: Order Comment: Body Fluid cell differential reference ranges have not been established by [facility]. Reference ranges provided are based on published references. This test was developed and its performance characteristics determined by [facility]. It has not been cleared or approved by the US Food and Drug Administration. Result Comment: Syno vial/Peritoneal/Pericardial/Pleural Fluid Reference Range: <75% BAL Reference Range: <10% Performed By: #### 2 9580-8 #### MICHAEL Ho ([id number]) [facility] ([facility]) [address] [place] [address] 32869 Monocytes+Macrophages/1 00 WBC Manual cnt (Body fld) 53 % Normal see comment [facility] Comment on above: Order Comment: Body Fluid cell differential reference ranges have not been established by [facility]. Reference ranges provided are based on published references. This test was developed and its performance characteristics determined by [facility]. It has not been cleared or approved by the US Food and Drug Administration. Result Comment: Syno vial/Peritoneal/Pericardial/Pleural Fluid Reference Range: <70% BAL Reference Range: 87-100% Performed By: #### 2 9580-8 #### MICHAEL Ho ([id number]) [facility] ([facility]) [address] [place] [address] 17049 Neutrophils/100 WBC (Body fld) 25 % Normal see comment [facility] Comment on above: Order Comment: Body Fluid cell differential reference ranges have not been established by [facility]. Reference ranges provided are based on published references. This test was developed and its performance characteristics determined by [facility]. It has not been cleared or approved by the US Food and Drug Administration. Result Comment: Syno vial/Peritoneal/Pericardial/Pleural Fluid Reference Range: <25% BAL Reference Range: <2% Performed By: #### 2 9580-8 #### MICHAEL Ho ([id number]) [facility] ([facility]) [address] [place] [address] 66380 Fungus identifiedon 09-25-19 Fungus identified Cx Nom (Unsp spec) Test: Fungal Culture/Smear Specimen Source: BRONCHO-ALVEOLAR LAVAGE OF RIGHT MIDDLE LOBE Specimen Type: Fluid Specimen Date: 09/24/2024 0839 Result Date: 10/12/2024 1020 Result Status: Final result Resulting Lab: [facility] [address] [place] [address]663 CULTURE No fungi isolated. STAIN No fungal elements seen Normal [facility] Comment on above: Performed By: #### 5 80-1 #### MICHAEL Ho ([id number]) [facility] ([facility]) [address] [place] [address] H. capsulatum Ag IA Qn (S)on 09-24-2024 H. capsulatum Ag Ql (Unsp spec) Not detected Normal Not Detected [facility] Comment on above: Performed By: #### 6 428-7 ####[facility] ([id number])[address] [place] [address] SCAN RESULT See Scanned Result Normal [facility] Comment on above: Performed By: #### 6 428-7 ####[facility] ([id number])[address] [place] [address] LEGIONELLA PCR PANELon 09-24 LEGIONELLA PNEUMO PCR, VIRC Not detected Normal Not Detected [facility] Comment on above: Result Comment: This test was developed and its performance characteristics determined by [facility]. It has not been cleared or approved by the U.S. Food and Drug Administration. Results should be used in conjunction with clinical findings, and should not form the sole basis for a diagnosis or treatment decision. Testing Performed at: [facility] [address] [place] [address], [place] [address] [address] [employer]: José Harris, PhD BHAVNA (ABB) CLIA # [id number] FLAG Interpretation: A = Abnormal, H = High, L = Low Performed By: #### L [facility] ####[facility] ([id number])[address] [place] [address] ALDRIDGE.LEGIONELLA PCR, VIRC Not detected Normal Not Detected [facility] Comment on above: Performed By: #### L [facility] ####[facility] ([id number])[address] [place] [address] Mycobacterium sp identifiedo n 09-24-2024 Mycobacterium sp identified Org specific cx Nom (Unsp spec) Test: AFB Culture/Smear Specimen Source: BRONCHO-ALVEOLAR LAVAGE OF RIGHT MIDDLE LOBE Specimen Type: Fluid Specimen Date: 09/24/2024 0839 Result Date: 11/11/2024 1204 Result Status: Final result Resulting Lab: [facility] [address] [place] [address] CULTURE No Mycobacteria isolated. STAIN No acid fast bacilli seen Normal [facility] Comment on above: Performed By: #### 5 43-9 #### MICHAEL Ho ([id number]) [facility] ([facility]) [address] [place] [address] Non-executive director sheltered workshop cytology studyon Non-gynecological cytology method study Pathology report.total SEE COMMENT Non-gynecologic Cytology Case: [id number] Authorizing Provider: Dick Nguyen MD Collected: 09/24/2024 0837 Ordering Location: [facility] Received: 09/24/2024 1637 [place] Pathologist: Lyudmila Valentin MD Specimen: BRONCHO-ALVEOLAR LAVAGE OF RIGHT MIDDLE LOBE, BAL RML Path report.final diagnosis SEE COMMENT A. BRONCHO-ALVEOLAR LAVAGE OF RIGHT MIDDLE LOBE- BAL RML No malignant cells or viral inclusions are identified Numerous macrophages present GMS stain is negative for organisms: fungal and pneumocystis organisms. at 1551 EDT Laboratory comment SEE COMMENT Slide(s) initially screened by EDER Marquez at [address] [address] By the signature on this report, the [...] GMS PCP A1-3 LOG SPECIAL STAIN Normal [facility] Pathologist review Cedrick (Unsp spec) [Interp]on 09-24-2024 PATH REVIEW-CELL CT,FLUID Predominantly macrophages with some foamy and hemosiderin-laden forms. Normal [facility] Comment on above: Result Comment: Elec tronically signed out by Cat Gunter MD on 09/25/24 at 10:24 AM. By the signature on this report, the individual or group listed as making the Final Interpretation/Diagnosis certifies that they have reviewed this case. Performed By: #### 5 9465-5 #### MICHAEL Ho ([id number]) [facility] ([facility]) [address] [place] [address] Surgical pathology studyon 0 09-24-2024 Surgical pathology study Pathology report.total SEE COMMENT Surgical Pathology Case: [id number] Authorizing Provider: Dick Nguyen MD Collected: 09/24/2024 0817 Ordering Location: [facility] Received: 09/24/2024 1142 Center Pathologist: Sanchez [...] in toto in one cassette. DMB Normal [facility] T-cell subsets CD4 and CD8 p janice (Bld)on 09-24-2024 CD3+CD4+% 72 % Normal not established [facility] Comment on above: Order Comment: Kenia l values have not been established for BAL specimens.This test is a Dual platform, multicolor, whole blood lysis assay. It was developed and its performance characteristics determined by the Department of Pathology, [facility], and has not been cleared or [...] Performed By: #### 6 5759-3 ####MICHAEL Ho ([id number])[facility] ([facility])[address] [place] [address] CD3+CD8+% 16 % Normal not established [facility] Comment on above: Order Comment: Kenia l values have not been established for BAL specimens.This test is a Dual platform, multicolor, whole blood lysis assay. It was developed and its performance characteristics determined by the Department of Pathology, [facility], and has not been cleared or [...] Performed By: #### 6 5759-3 ####MICHAEL Ho ([id number])[facility] ([facility])[address] [place] [address] CD4/CD8 RATIO 4.50 Normal not established [facility] Comment on above: Order Comment: Kenia l values have not been established for BAL specimens.This test is a Dual platform, multicolor, whole blood lysis assay. It was developed and its performance characteristics determined by the Department of Pathology, [facility], and has not been cleared or [...] Performed By: #### 6 5759-3 ####MICHAEL Ho ([id number])[facility] ([facility])[address] [place] [address] XR CHEST 1 VIEWon 09-24-2024 XR CHEST 1 VIEW Interpreted By: Matthias Bunch and Mercado Amiel STUDY: XR CHEST 1 VIEW; 09/24/2024 9:32 am INDICATION: Signs/Symptoms:after bronchoscopy. COMPARISON: CT CHEST HIGH RESOLUTION 07/20/2024 ACCESSION NUMBER(S): [id number] ORDERING CLINICIAN: DICK NGUYEN FINDINGS: AP radiograph [...] Matthias Bunch 09/24/2024 10:10 AM Dictation workstation: [id number] [facility] XR Chest Single viewon 09-24 1. Diffuse bilateral hazy reticulonodular opacities with relatively increased size of right lateral lower lung field, which likely represents infiltrate/consolidatio n with superimposed interstitial lung findings previously described on CT. I have reviewed the images/study and I agree with the findings as stated by Dr. Aguila Gonzales. Signed by: Matthias Bunch 09/24/2024 10:10 AM Dictation workstation: [id number] Interpreted By: Matthias Bunch and Mercado Amiel STUDY: XR CHEST 1 VIEW; 09/24/2024 9:32 am INDICATION: Signs/Symptoms:after bronchoscopy. COMPARISON: CT CHEST HIGH RESOLUTION 07/20/2024 ACCESSION NUMBER(S): [id number] ORDERING CLINICIAN: DICK NGUYEN FINDINGS: AP radiograph [...] CT CHEST HIGH RESOLUTION 07/20/2024 ACCESSION NUMBER(S): [id number] ORDERING CLINICIAN: DICK NGUYEN FINDINGS: AP radiograph [...] Matthias Bunch 09/24/2024 10:10 AM Dictation workstation: [id number] [facility] Work Phone: Radiology Study observation (narrative) [facility] Work Phone: XR Chest Single viewOrdered By: Matthias Bunch on 09-24-2024 [facility] Work Phone: Endocrinology Visit Reporton 09-16-2024 Endocrinology Visit Report Normal [facility] - Hematology and Cell countsOrdered By: Jessica Gerardo on 09-16-2024 HbA1c (Bld) [Mass fraction] 8.4 % High 4.2-6.3 [facility] No Panel InformationOrdered By: Jessica Gerardo on 09-16-2024 8.4 % High 4.2-6.3 [facility] Office Visit Reporton 2024 Office Visit Report Normal [facility] Neurology Visit Reporton Neurology Visit Report Normal [facility] Anion gap in Serum or Plasma Ordered By: Khadar Valencia on 08-12-2024 Anion gap [Moles/Vol] 14 mmol/L - [facility] BUN/creatinine ratioOrdered By: Khadar Valencia on 08-12-2024 Urea nitrogen/Creatinine [Mass ratio] 30.2 mg/mg High - [facility] Basic Metabolic Profile (BMP )on 08-12-2024 BUN/CRE 30.2 RATIO High 01-18 [facility] Comment on above: Performed By: #### L 500.2500, L503.7505 ####[facility] [address] [place], [address] Calcium [Mass/Vol] 9.6 mg/dL Normal 7.6-11.0 [facility] Comment on above: Performed By: #### L 500.2500, L503.7505 ####[facility] [address] [place], [address] Chloride [Moles/Vol] 98 mmol/L Normal 98-108 [facility] Comment on above: Performed By: #### L 500.2500, L503.7505 ####[facility] [address] [place], [address] CO2 [Moles/Vol] 25.1 mmol/L Normal 21.0-32.0 [facility] Comment on above: Performed By: #### L 500.2500, L503.7505 ####[facility] [address] [place], [address] Creatinine [Mass/Vol] 1.31 mg/dL High 0.70-1.20 [facility] Comment on above: Performed By: #### L 500.2500, L503.7505 ####[facility] [address] [place], [address] GAP 14 Normal 5-15 [facility] Comment on above: Performed By: #### L 500.2500, L503.7505 ####[facility] [address] [place], [address] GFR/1.73 sq M.predicted among non-blacks MDRD (S/P/Bld) [Vol rate/Area] 62 mL/min/{1.73_m2} Normal >60 [facility] Comment on above: Result Comment: mL/m in/1.73m2 CKD-EPI Creatinine Equation (2020) Performed By: #### L 500.2500, L503.7505 ####[facility] [address] [place], [address] Glucose [Mass/Vol] 104 mg/dL High 70-99 [facility] Comment on above: Performed By: #### L 500.2500, L503.7505 ####[facility] [address] [place], [address] Potassium [Moles/Vol] 4.4 mmol/L Normal 3.3-5.1 [facility] Comment on above: Performed By: #### L 500.2500, L503.7505 ####[facility] [address] [place], [address] Sodium [Moles/Vol] 137 mmol/L Normal 133-145 [facility] Comment on above: Performed By: #### L 500.2500, L503.7505 ####[facility] [address] [place], [place], [id number] Urea nitrogen [Mass/Vol] 40 mg/dL High 4-19 [facility] Comment on above: Performed By: #### L 500.2500, L503.6885 ####[facility] [address] [place], [place], [id number] Carbon dioxide, total [Moles /volume] in Central venous bloodOrdered By: Khadar Valencia on 08-12-2024 CO2 [Moles/Vol] 25.1 mmol/L 21.0-32.0 [facility] Chest PA and Lateralon 08-12 Chest PA and Lateral Normal [facility] Chloride assayOrdered By: James Valencia on 08-12-2024 Chloride [Moles/Vol] 98 mmol/L 98-108 [facility] Glomerular filtration rate ( GFR) estimation/1.73 sq m using serum, plasma, or whole bOrdered By: Khadar Valencia on 08-12-2024 GFR/1.73 sq M.predicted among non-blacks MDRD (S/P/Bld) [Vol rate/Area] 62 mL/min/{1.73_m2} >60 [facility] Comment on above: mL/min/1.73m2 CKD-EP I Creatinine Equation (2020) L503.7505on 08-12-2024 Natriuretic peptide B (Bld) [Mass/Vol] 626 pg/mL Normal <=900 [facility] Comment on above: Result Comment: Hear t Failure Unlikely: < 300 pg/mLHeart Failure Likely< 50 Years: > 450 pg/mL50-75 Years: > 900 pg/mL>75 Years: > 1800 pg/mL Performed By: #### L 500.2500, L503.7505 ####[facility] [address] [place], [place], [id number] Natriuretic peptide.B prohor renea N-Terminal [Mass/volume] in Serum or PlasmaOrdered By: Khadar Valencia on 08-12-2024 Natriuretic peptide.B prohormone N-Terminal [Mass/Vol] 626 pg/mL <900 [facility] Comment on above: Heart Failure Unlike ly: < 300 pg/mLHeart Failure Likely< 50 Years: > 450 pg/mL50-75 Years: > 900 pg/mL>75 Years: > 1800 pg/mL Potassium measurement (mass/ volume)Ordered By: Khadar Valencia on 08-12-2024 Potassium (Unsp spec) [Mass/Vol] 4.4 mmol/L 3.3-5.1 [facility] Serum creatinine measurement (mass/volume)Ordered By: Khadar Valencia on 08-12-2024 Creatinine [Mass/Vol] 1.31 mg/dL High 0.70-1.20 [facility] Serum glucose measurement (m ass/volume)Ordered By: [facility] Erik on 08-12-2024 Glucose [Mass/Vol] 104 mg/dL High 70-99 [facility] Serum or plasma calcium grazyna urement (mass/volume)Ordered By: Khadar Erik on 08-12-2024 Calcium [Mass/Vol] 9.6 mg/dL 7.6-11.0 [facility] Serum or plasma urea nitroge n measurement (mass/volume)Ordered By: Khadar Erik on 08-12-2024 Urea nitrogen [Mass/Vol] 40 mg/dL High 4-19 [facility] Sodium levelOrdered By: [facility] fernando Valencia on 08-12-2024 Sodium [Moles/Vol] 137 mmol/L 133-145 [facility] Office Visit Reporton 2024 Office Visit Report Normal [facility] ALDOLASEon 08-02-2024 ALDOLASE 4.6 U/L Normal < OR = 8.1 [facility] Comment on above: Performed By: #### 2 54, 0472, 4420, 49856, 809, 43186, 374 #### [facility] [address], [address] [place] [address] Studio Operator: Octavio Segovia MD #### 99594, 53765 #### [facility], [address] [place] [address] Studio Operator: Alejandra Queen MD,PhD,FADAI #### 60909 #### [facility] [address] [place] Studio Operator: Waldemar Billy M.D.,PhD RICARDO CASCADE(RICARDO,IFA W/RFL AN [...] AC-0: Negative International Consensus on RICARDO Patterns (https://doi.org/10.1515/hgzy-4184-5156) For additional information, please refer to http://education.NOZA.[employer]/faq/XGZ779 (This link is being provided for informational/ educational purposes only.) Performed By: #### 2 27, 4418, 4420, 51002, 809, 71144, 374 #### [facility] [address], [address] [place] [address] Studio Operator: Octavio Segovia MD #### 16282, 89830 #### [facility]/[address] [address] Studio Operator: Alejandra Queen MD,PhD,FADIA #### 91811 #### [facility] [address] [place] Studio Operator: Waldemar Billy M.D.,PhD ANCA SCREEN WITH MPO [...] Performed By: #### 2 , 8, 4420, 54318, 809, 94462, 374 #### [facility] [address], [address] [place] [address] Studio Operator: Octavio Segovia MD #### 92228, 82800 #### [facility], [address] [place] [address] Studio Operator: Alejandra Queen MD,PhD,FADIA #### 76490 #### [facility]/[place] [address] [place] Studio Operator: Waldemar Billy M.D.,PhD MYELOPEROXIDASE ANTIBODY <1.0 Normal [...] Performed By: #### 2 , 8, 4420, 56022, 809, 66253, 374 #### [facility] [address], [address] [place] [address] Studio Operator: Octavio Segovia MD #### 39711, 80138 #### [facility], [address] [place] [address] Studio Operator: Alejandra Queen MD,PhD,FADIA #### 02948 #### [facility] [address] [facility] [place], [place] Studio Operator: Waldemar Billy M.D.,PhD PROTEINASE-3 ANTIBODY <1.0 Normal <1.0 [facility] Comment on above: Result Comment: Value Interpretation <1.0 AI: No Antibody Detected >or=1.0 AI: Antibody Detected Autoantibodies to proteinase-3 (ND-3) are accepted as characteristic for granulomatosis with polyangiitis (GPA, Kaylen's), and are detectable in 95% of the histologically proven cases. The cytoplasmic IFA pattern, (c-ANCA), is based largely on autoantibody to ND-3 which serves as the primary antigen. These autoantibodies are present in active disease. Performed By: #### 2 , 4418, 4420, 29746, 809, 25384, 374 #### [facility] [address], [address] [place] [address] Studio Operator: Octavio Segovia MD #### 15457, 18746 #### [facility], [address] [place] [address] Studio Operator: Alejandra Queen MD,PhD,FADIA #### 90911 #### [facility]/[address] [place], [place] Studio Operator: Waldemar Billy M.D.,PhD C-REACTIVE PROTEINon 025 CRP [Mass/Vol] 10.6 mg/L High <8.0 [facility] Comment on above: Performed By: #### 2 , 4418, 4420, 63439, 809, 23771, 374 #### [facility] [address], [address] [place] [address] Studio Operator: Octavio Segovia MD #### 18796, 33052 #### [facility], [address] [place] [address] Studio Operator: Alejandra Queen MD,PhD,FADIA #### 98876 #### [facility]/[place] [address] [place] Studio Operator: Waldemar Billy M.D.,PhD CREATINE KINASE, TOTALon CREATINE KINASE, TOTAL 46 U/L Normal 22-308 [facility] Comment on above: Performed By: #### 2 27, 4418, 4420, 15835, 809, 93368, 374 #### [facility] [place] [address] [facility], [address] Studio Operator: Octavio Segovia MD #### 06781, 18924 #### [facility], [address] [place] [address] Studio Operator: Alejandra Queen MD,PhD,FADIA #### 16881 #### [facility]/[place] [address] [place] Studio Operator: Waldemar Billy M.D.,PhD CYCLIC CITRULLINATED PEPTIDE (CCP) AB (IGG)on 08-02-2024 CYCLIC CITRULLINATED PEPTIDE (CCP) AB (IGG) <16 Normal [facility] Comment on above: Result Comment: Refe rence Range Negative: <20 Weak Positive: 20-39 Moderate Positive: 40-59 Strong Positive: >59 Performed By: #### 2 27, 4418, 4420, 43755, 809, 02132, 374 #### [facility] [address], [address] [place] [address] Studio Operator: Octavio Segovia MD #### 00028, 56919 #### [facility], [address] [place], [place] Studio Operator: Alejandra Queen MD,PhD,FADIA #### 39524 #### [facility]/[place] [address] [address] [place] Studio Operator: Waldemar Billy M.D.,PhD EXTENDED MYOSITIS SPECIFIC A [...] analytical performance characteristics have been determined by [facility]. It has not been cleared or approved by the FDA. This assay has been validated pursuant to the CLIA regulations and is used for clinical purposes. Performed By: #### 2 27, 4498, 4420, 40958, 809, 71450, 374 #### [facility] [address], [address] [place] [address] Studio Operator: Octavio Segovia MD #### 75269, 29715 #### [facility], [address] [place] [address] Studio Operator: Alejandra Queen MD,PhD,FADIA #### 20756 #### [facility] [address] [place] [address] Studio Operator: Waldemar Billy M.D.,PhD EJ AB <11 Normal <11 [facility] Comment on above: Order Comment: FASTI NG:NO FASTING: NO Performed By: #### 2 27, 4418, 4420, 07040, 809, 53791, 374 #### [facility] [address], [address] [place] [address] Studio Operator: Octavio Segovia MD #### 16717, 00264 #### [facility], [address] [place] [address] Studio Operator: Alejandra Queen MD,PhD,FADIA #### 89337 #### [facility] [address] [facility] [place], [place] Studio Operator: Waldemar Billy M.D.,PhD HMGCR AB (IGG) <2 Normal <20 [facility] Comment on above: Order Comment: FASTI NG:NO FASTING: NO Result Comment: 7-Uahbmzr-5-Methylglutaryl-Coenzyme A Reductase (HMGCR) Ab is associated with necrotizing myopathy and is often found with the use of statin medications. Rarely, HMGCR Ab associated myositis has also been seen in patients ingesting mushrooms and other foods. Performed By: #### 2 27, 4418, 4420, 71901, 809, 85484, 374 #### [facility] [address], [address] [place] [address] Studio Operator: Octavio Segovia MD #### [phone], 37538 #### [facility], [address] [place] [address] Studio Operator: Alejandra Queen MD,PhD,FADIA #### [id number] #### [facility] [address] [facility] [place], [place] Studio Operator: Waldemar Billy M.D.,PhD SAMANTHA-1 AB <11 Normal <11 [facility] Comment on above: Order Comment: FASTI NG:NO FASTING: NO Performed By: #### 2 27, 4418, 4420, 02293, 809, 58671, 374 #### [facility] [address], [address] [place] [address] Studio Operator: Octavio Segovia MD #### [phone], 87409 #### [facility] [address] [facility] [place] Studio Operator: Alejandra Queen MD,PhD,FADIA #### [id number] #### [facility]/[address] [place], [place] Studio Operator: Waldemar Billy M.D.,PhD MDA5 AB <11 Normal <11 [facility] Comment on above: Order Comment: FASTI NG:NO FASTING: NO Performed By: #### 2 27, 4418, 4420, 40059, 809, 48877, 374 #### [facility] [place] [address], [address] [place] [address] Studio Operator: Octavio Segovia MD #### [phone], 67278 #### [facility] [address] [place] Studio Operator: Alejandra Queen MD,PhD,FADIA #### [id number] #### [facility]/[address] [place], [place] Studio Operator: Waldemar Billy M.D.,PhD LA-2 ALPHA AB <11 Normal <11 [facility] Comment on above: Order Comment: FASTI NG:NO FASTING: NO Performed By: #### 2 27, 4418, 4420, 41174, 809, 03738, 374 #### [facility] [address], [address] [place] [address] Studio Operator: Octavio Segovia MD #### [phone], 37210 #### [facility] [address] [facility] [place] Studio Operator: Alejandra Queen MD,PhD,FADIA #### [id number] #### [facility]/[place] [address] [facility] [place], [place] Studio Operator: Waldemar Billy M.D.,PhD LA-2 BETA AB <11 Normal <11 [facility] Comment on above: Order Comment: FASTI NG:NO FASTING: NO Performed By: #### 2 27, 4418, 4420, 12556, 809, 98237, 374 #### [facility] [address] [facility], [address] [place] [address] Studio Operator: Octavio Segovia MD #### 21649, 16628 #### [facility], [address] [facility] [place] Studio Operator: Alejandra Queen MD,PhD,FADIA #### [phone] #### [facility] [address] [place] [address] [place], [place] Studio Operator: Waldemar Billy M.D.,PhD NXP-2 AB <11 Normal [...] with a rash. Additionally, MSAs to MDA5 (QAJG180) have been identified in patients with clinically [...] analytical performance characteristics have been determined by [facility]. It has not been cleared or approved by the FDA. This assay has been validated pursuant to the CLIA regulations and is used for clinical purposes. Performed By: #### 2 27, 4418, 4420, 42189, 809, 06669, 374 #### [facility] [address] [facility], [address] [place] [address] Studio Operator: Octavio Segovia MD #### 60181, 88767 #### [facility], [address] [facility] [place] Studio Operator: Alejandra Queen MD,PhD,FADIA #### [id number] #### [facility]/[address] [place], [place] Studio Operator: Waldemar Billy M.D.,PhD O AB <11 Normal <11 [facility] Comment on above: Order Comment: FASTI NG:NO FASTING: NO Performed By: #### 2 27, 4418, 4420, 90681, 809, 24798, 374 #### [facility] [address], [address] [place] [address] Studio Operator: Octavio Segovia MD #### [phone], 84762 #### [facility], [address] [facility] [place] Studio Operator: Alejandra Queen MD,PhD,FADIA #### [id number] #### [facility]/[place] [address] [facility] [place], [place] Studio Operator: Waldemar Billy M.D.,PhD PL-12 AB <11 Normal <11 [facility] Comment on above: Order Comment: FASTI NG:NO FASTING: NO Performed By: #### 2 27, 4418, 4420, 92775, 809, 78646, 374 #### [facility] [address], [address] [place] [address] Studio Operator: Octavio Segovia MD #### 68501, 06286 #### [facility], [facility] [place] [address] Studio Operator: Alejandra Queen MD,PhD,FADIA #### [id number] #### [facility]/[address] [place], [place] Studio Operator: Waldemar Billy M.D.,PhD PL-7 AB <11 Normal <11 [facility] Comment on above: Order Comment: FASTI NG:NO FASTING: NO Performed By: #### 2 27, 4418, 4420, 38111, 809, 43044, 374 #### [facility] [address] , [address] [place] [address] Studio Operator: Octavio Segovia MD #### 87021, 55653 #### [facility], [address] [place], [place] [address] Studio Operator: Alejandra Queen MD,PhD,FADIA #### [id number] #### [facility]/[address] [place], [place] Studio Operator: Waldemar Billy M.D.,PhD SRP AB <11 Normal <11 [facility] Comment on above: Order Comment: FASTI NG:NO FASTING: NO Performed By: #### 2 27, 4418, 4420, 53757, 809, 81116, 374 #### [facility] [address] , [address] [place] [address] Studio Operator: Octavio Segovia MD #### 03792, 66834 #### [facility] [address] [place] Studio Operator: Alejandra Queen MD,PhD,FADIA #### [id number] #### [facility] [address] [place] Studio Operator: Waldemar Billy M.D.,PhD TIF1 GAMMA AB <11 Normal <11 [facility] Comment on above: Order Comment: FASTI NG:NO FASTING: NO Performed By: #### 2 27, 4418, 4420, 18943, 809, 58813, 374 #### [facility] [place] [address] [facility], [address] [place] [address] Studio Operator: Octavio Segovia MD #### 99794, 68830 #### [facility], [address] [place], [place] Studio Operator: Alejandra Queen MD,PhD,FADIA #### [id number] #### [facility] [address] [place] Studio Operator: Waldemar Billy M.D.,PhD HYPERSENSITIVITY PNEUMONITIS SCREEN 08-02-2024 ASPERGILLUS FUMIGATUS Negative Normal NEGATIVE Que st [facility] Comment on above: Performed By: #### 2 27, 4418, 4420, 18548, 809, 41113, 374 #### [facility] [address] , [address] [place] [address] Studio Operator: Octavio Segovia MD #### 74809, 00490 #### [facility], [address] [place] Studio Operator: Alejandra Queen MD,PhD,FADIA #### 28894 #### [facility] [address] [place] Studio Operator: Waldemar Billy M.D.,PhD MICROPOLYSPORA FAENI Negative Normal NEGATIVE Ques t Diagnostics Comment on above: Performed By: #### 2 27, 4418, 4420, 82595, 809, 86365, 374 #### [facility] of [address], [address] [place] [address] Studio Operator: Octavio Segovia MD #### 14959, 76580 #### [facility], [address] [place] [address] Studio Operator: Alejandra Queen MD,PhD,FADIA #### [id number] #### [facility]/[place] [address] [facility] [place], [place] Studio Operator: Waldemar Billy M.D.,PhD PIGEON SERUM Negative Normal NEGATIVE [facility] Comment on above: Performed By: #### 2 27, 4418, 4420, 55147, 809, 47203, 374 #### [facility] of [address], [address] [place] [address] Studio Operator: Octavio Segovia MD #### 27449, 25901 #### [facility], [address] [address] Studio Operator: Alejandra Queen MD,PhD,FADIA #### [id number] #### [facility]/[address] [place], [place] Studio Operator: Waldemar Billy M.D.,PhD S. VIRIDIS Negative Normal NEGATIVE [facility] Comment on above: Result Comment: This test was developed and its analytical performance characteristics have been determined by [facility]. It has not been cleared or approved by the FDA. This assay has been validated pursuant to the CLIA regulations and is used for clinical purposes. Performed By: #### 2 27, 4418, 4420, 25242, 809, 52381, 374 #### [facility] of [address], [address] [place] [address] Studio Operator: Octavio Segovia MD #### 16290, 03178 #### [facility], [address] [place] Studio Operator: Alejandra Queen MD,PhD,FADIA #### [id number] #### [facility]/[address] [place], [place] Studio Operator: Waldemar Billy M.D.,PhD T. CANDIDUS Negative Normal NEGATIVE [facility] Comment on above: Performed By: #### 2 27, 4418, 4420, 55142, 809, 48061, 374 #### [facility] [address] , [address] [place] [address] Studio Operator: Octavio Segovia MD #### 81904, 18865 #### [facility], [address] [place] Studio Operator: Alejandra Queen MD,PhD,FADIA #### 88937 #### [facility]/[address] [place], [place] Studio Operator: Waldemar Billy M.D.,PhD T. VULGARIS Negative Normal NEGATIVE [facility] Comment on above: Performed By: #### 2 27, 4418, 4420, 01383, 809, 16384, 374 #### [facility] [place] [address] [address] , [address] [place] [address] Studio Operator: Octavio Segovia MD #### 83635, 11305 #### [facility], [address] [place] Studio Operator: Alejandra Queen MD,PhD,FADIA #### 19464 #### [facility]/[address] [place], [place] Studio Operator: Waldemar Billy M.D.,PhD RHEUMATOID FACTORon 08-03-19 25 RHEUMATOID FACTOR 41 IU/mL High <14 [facility] Comment on above: Performed By: #### 2 27, 4418, 4420, 09353, 809, 03646, 374 #### [facility] [address], [address] [place] [address] Studio Operator: Octavio Segovia MD #### 55699, 04106 #### [facility], [address] [place], [place] Studio Operator: Alejandra Qeuen MD,PhD,FADIA #### 55151 #### [facility] [address] [place] Studio Operator: Waldemar Billy M.D.,PhD SED RATE BY MODIFIED WESTERG RENon 08-02-2024 SED RATE BY MODIFIED WESTERGREN 36 mm/h High < OR = 20 [facility] Comment on above: Performed By: #### 2 27, 4418, 4420, 62792, 809, 02549, 374 #### [facility] [address], [address] [place] [address] Studio Operator: Octavio Segovia MD #### 62330, 38924 #### [facility], [address] [place], [place] Studio Operator: Alejandra Queen MD,PhD,FADIA #### 67768 #### [facility]/[place] [address] [facility] [address] [place] Studio Operator: Waldemar Billy M.D.,PhD [facility]ACIC ECHO (TTE) COMPLETE [facility] [address] [facility], [address], [place] [address] TRANSTHORACIC ECHOCARDIOGRAM REPORT Patient Name: KRUNAL LEOS Reading Physician: [id number] David Nguyễn MD Study Date: 07/23/2024 Ordering Provider: [id number] ROSALINO PADRON MRN/PID: [id number] Fellow: Nurse: Date of /Age: 5 1965 Renal Dialysis Technician: Ena hernandez RDALBERTO Gender assigned at M Additional Staff: : Height: 175.26 cm Admit Date: Weight: 141.07 kg Admission Status: Outpatient BSA / BMI: 2.49 m2 / 45.93 kg/m2 Blood Pressure: 157/78 mmHg Department Location: [facility] Study Type: TRANSTHORACIC ECHO (TTE) COMPLETE Diagnosis/ICD: Pulmonary hypertension, unspecified-I27.20 Indication: Pulmonary hypertension CPT Code: Echo Complete w Full Doppler-[id number] Study Detail: The following Echo studies were [...] VEINS: PulmV A Revs Dur: 121.00 msec [id number] David Nguyễn MD Electronically signed on 07/24/2024 at 9:17:53 AM Final Normal [facility] CT CHEST HIGH RESOLUTIONon 0 07-20-2024 CT CHEST HIGH RESOLUTION Interpreted By: Julissa Bolaños, STUDY: CT CHEST HIGH RESOLUTION; 07/20/2024 12:56 pm INDICATION: Signs/Symptoms:ILD. COMPARISON: None. ACCESSION NUMBER(S): [id number] ORDERING CLINICIAN: ROSALINO PADRON TECHNIQUE: Using helical [...] Julissa Banuelos 07/20/2024 1:33 PM Dictation workstation: [id number] [facility] CT Cheston 07-20-2024 1. Extensive [...] chest in 12 months may be obtained. ([place] Webbhosalma et al., Guidelines for management of incidental pulmonary nodules detected on CT images: From the Fleischner Society 2017, Radiology. 2017 Sep;284 (1):228-243.) FLEISCHNER.ACR.IF.1 MACRO: None Signed by: Julissa Banuelos 07/20/2024 1:33 PM Dictation workstation: [id number] MMODAL Interpreted By: Julissa Pleitez, STUDY: CT CHEST HIGH RESOLUTION; 07/20/2024 12:56 pm INDICATION: Signs/Symptoms:ILD. COMPARISON: None. ACCESSION NUMBER(S): [id number] ORDERING CLINICIAN: ROSALINO PADRON TECHNIQUE: Using helical [...] Julissa Bolaños MD - 07/20/2024 Interpreted By: Jluissa Bolaños, STUDY: CT CHEST HIGH RESOLUTION; 07/20/2024 12:56 pm INDICATION: Signs/Symptoms:ILD. COMPARISON: None. ACCESSION NUMBER(S): [id number] ORDERING CLINICIAN: ROSALINO PADRON TECHNIQUE: Using helical [...] Julissa Banuelos 07/20/2024 1:33 PM Dictation workstation: [id number] [facility] Work Phone: Radiology Study observation (narrative) [facility] Work Phone: CT ChestOrdered By: Julissa Banuelos on 07-20-2024 [facility] Work Phone: Office Visit Reporton 2024 Office Visit Report Normal [facility] Pulmonary Visit Reporton Pulmonary Visit Report Normal [facility] Office Visit Reporton 2024 Office Visit Report Normal [facility] 36on 06-01-2024 36 Patient called in [...] and to seek medical attention immediately. Normal [facility] 12 Lead EKG performed by [facility] on 05-21-2024 12 Lead EKG performed by [facility] Normal [facility] Basic Metabolic Profile (BMP )on 05-21-2024 BUN/CRE 21.2 RATIO High 01-18 [facility] Comment on above: Performed By: #### L 500.2500 ####[facility] [address] [place], [address] [place],Total 9.6 mg/dL Normal 8.5-10.1 [facility] Comment on above: Performed By: #### L 500.2500 ####[facility] [address] [place], [address] Chloride [Moles/Vol] 99 mmol/L Normal 98-107 [facility] Comment on above: Performed By: #### L 500.2500 ####[facility] [address] [place], [address] CO2 [Moles/Vol] 26.0 mmol/L Normal 21.0-32.0 [facility] Comment on above: Performed By: #### L 500.2500 ####[facility] [address] [place], [address] Creatinine [Mass/Vol] 1.60 mg/dL High 0.70-1.30 [facility] Comment on above: Result Comment: The validity of the calculated GFR GFRAA in patients over70 years has not been determined. Clinical correlation isessential. Performed By: #### L 500.2500 ####[facility] [address] [place], [address] EST GFR - AA 57 mL/min Low >60 [facility] Comment on above: Result Comment: Afri can Australian GFR Calc Performed By: #### L 500.2500 ####[facility] [address] [place], [address] GAP 12 Normal 5-15 [facility] Comment on above: Performed By: #### L 500.2500 ####[facility] [address] [place], [address] GFR/1.73 sq M.predicted among non-blacks MDRD (S/P/Bld) [Vol rate/Area] 47 mL/min/{1.73_m2} Low >60 [facility] Comment on above: Result Comment: Non- GFR Calc Performed By: #### L 500.2500 ####[facility] [address] [place], [address] Glucose [Mass/Vol] 174 mg/dL High 74-106 [facility] Comment on above: Result Comment: Fast ing Glucose result greater than or equal to 126 mg/dLsuggests DIABETES MELLITUS per A.D.A. criteria. Performed By: #### L 500.2500 ####[facility] [address] [place], [address] Potassium [Moles/Vol] 3.8 mmol/L Normal 3.5-5.1 [facility] Comment on above: Performed By: #### L 500.2500 ####[facility] [address] [place], [address] Sodium [Moles/Vol] 136 mmol/L Normal 136-145 [facility] Comment on above: Performed By: #### L 500.2500 ####[facility] [address] [place], [address] Urea nitrogen [Mass/Vol] 34 mg/dL High 7-18 [facility] Comment on above: Performed By: #### L 500.2500 ####[facility] [address] [place], [address] Bilirubin directOrdered By: SAV Rojas on 05-21-2024 Bilirubin.direct [Mass/Vol] 0.32 mg/dL High 0.00-0.30 [facility] Bilirubin, totalOrdered By: SAV Rojas on 05-21-2024 Bilirubin [Mass/Vol] 1.40 mg/dL High 0.20-1.00 [facility] Comment on above: For patients on eltr ombopag therapy, use of Dimension [place] TBIL is not recommended. Blood urea nitrogen (BUN)/cr eatinine ratioOrdered By: Lydia Segura on 05-21-2024 Urea nitrogen/Creatinine [Mass ratio] 21.2 mg/mg High 10-20 [facility] Carbon dioxide measurementOr dered By: Lydia Segura on 05-21-2024 CO2 [Moles/Vol] 26.0 mmol/L 21.0-32.0 [facility] Cardiology Visit Reporton Cardiology Visit Report Normal [facility] Chloride measurementOrdered By: Lydia Segura on 05-21-2024 Chloride [Moles/Vol] 99 mmol/L 98-107 [facility] Glomerular filtration rate ( GFR) estimationOrdered By: Lydia Segura on 05-21-2024 GFR/1.73 sq M.predicted among non-blacks MDRD (S/P/Bld) [Vol rate/Area] 47 mL/min/{1.73_m2} Low >60 [facility] Comment on above: Non- GFR Calc Glucose measurementOrdered B y: Lydia Segura on 05-21-2024 Glucose [Mass/Vol] 174 mg/dL High 74-106 [facility] Comment on above: Fasting Glucose resu lt greater than or equal to 126 mg/dL suggests DIABETES MELLITUS per A.D.A. criteria. Laboratory - Chemistry and C hemistry - challengeOrdered By: SAV Rojas on 05-21-2024 AST [Catalytic activity/Vol] 18 U/L 15-37 [facility] Liver Profileon 05-21-2024 Albumin [Mass/Vol] 3.4 g/dL Normal 3.2-5.0 [facility] Comment on above: Order Comment: 1 mo. after 1st dose of OFEV, monthly for 1st 3 mo Performed By: #### L 500.3400 ####[facility] [address] [place], [address] ALK P 81 U/L Normal 45-117 [facility] Comment on above: Order Comment: 1 mo. after 1st dose of OFEV, monthly for 1st 3 mo Performed By: #### L 500.3400 ####[facility] [address] [place], [address] ALT [Catalytic activity/Vol] 17 U/L Normal 16-61 [facility] Comment on above: Order Comment: 1 mo. after 1st dose of OFEV, monthly for 1st 3 mo Performed By: #### L 500.3400 ####[facility] [address] [place], [address] AST [Catalytic activity/Vol] 18 U/L Normal 15-37 [facility] Comment on above: Order Comment: 1 mo. after 1st dose of OFEV, monthly for 1st 3 mo Performed By: #### L 500.3400 ####[facility] [address] [place], [address] Bilirubin [Mass/Vol] 1.40 mg/dL High 0.20-1.00 [facility] Comment on above: Order Comment: 1 mo. after 1st dose of OFEV, monthly for 1st 3 mo Result Comment: For patients on eltrombopag therapy, use of Dimension [place] TBIL is not recommended. Performed By: #### L 500.3400 ####[facility] [address] [place], [address] Bilirubin.direct [Mass/Vol] 0.32 mg/dL High 0.00-0.30 [facility] Comment on above: Order Comment: 1 mo. after 1st dose of OFEV, monthly for 1st 3 mo Performed By: #### L 500.3400 ####[facility] [address] [place], [place], [address] Globulin (S) [Mass/Vol] 5.1 g/dL High 2.2-4.2 [facility] Comment on above: Order Comment: 1 mo. after 1st dose of OFEV, monthly for 1st 3 mo Performed By: #### L 500.3400 ####[facility] [address] [place], [place], [address] T PROT 8.5 g/dL High 6.4-8.2 [facility] Comment on above: Order Comment: 1 mo. after 1st dose of OFEV, monthly for 1st 3 mo Performed By: #### L 500.3400 ####[facility] [address] [place], [place], [address] No Panel InformationOrdered By: SAV Rojas on 05-21-2024 18 U/L 15-37 [facility] Potassium measurementOrdered By: Lydia Segura on 05-21-2024 Potassium [Moles/Vol] 3.8 mmol/L 3.5-5.1 [facility] Serum anion gap measurementO rdered By: Lydia Segura on 05-21-2024 Anion gap [Moles/Vol] 12 mmol/L 5-15 [facility] Serum globulin measurementOr dered By: SAV Rojas on 05-21-2024 Globulin (S) [Mass/Vol] 5.1 g/dL High 2.2-4.2 [facility] Serum or plasma alanine briscoe otransferase (ALT) measurementOrdered By: SAV Rojas on 05-21-2024 ALT [Catalytic activity/Vol] 17 U/L 16-61 [facility] Serum or plasma albumin grazyna urement (mass/volume)Ordered By: SAV Rojas on 05-21-2024 Albumin [Mass/Vol] 3.4 g/dL 3.2-5.0 [facility] Serum or plasma alkaline benjamin sphatase measurementOrdered By: SAV Rojas on 05-21-2024 ALP [Catalytic activity/Vol] 81 U/L 45-117 [facility] Serum or plasma calcium grazyna urement (mass/volume)Ordered By: Lydia Segura on 05-21-2024 Calcium [Mass/Vol] 9.6 mg/dL 8.5-10.1 [facility] Serum or plasma creatinine m easurement (mass/volume)Ordered By: Lydia Segura on 05-21-2024 Creatinine [Mass/Vol] 1.60 mg/dL High 0.70-1.30 [facility] Comment on above: The validity of the calculated GFR & GFRAA in patients over 70 years has not been determined. Clinical correlation is essential. Serum or plasma urea nitroge n measurement (mass/volume)Ordered By: Lydia Segura on 05-21-2024 Urea nitrogen [Mass/Vol] 34 mg/dL High 7-18 [facility] Sodium levelOrdered By: Macho Segura on 05-21-2024 Sodium [Moles/Vol] 136 mmol/L 136-145 [facility] Total proteinOrdered By: SAV Rojas on 05-21-2024 Protein [Mass/Vol] 8.5 g/dL High 6.4-8.2 [facility] 36on 05-13-2024 36 Patient lvm with questions about what medications he should be taking post op. I returned his call [facility] 36on 05-08-2024 36 Spoke with Mr. Anibal [...] 1 year. Sooner doriannMindi Culp MD Normal [facility] ECG 12-LEADon 05-07-2024 ECG 12-LEAD IMPRESSION: Sinus rhythm Atrial premature complex LVH with IVCD and secondary repol abnrm Inferior infarct, age indeterminate Electronically Signed On 05-07-2024 10:34:37 EST by Krunal Allen [facility] APTTon 05-06-2024 aPTT Coag (Bld) [Time] 22.1 s Normal 20.0-30.5 [facility] Comment on above: Result Comment: DAPHNE Low COMMENTS: NOTE: The therapeutic time for Heparin anticoagulation, based on Xa activity inhibition, is an APTT of 46-80 seconds. Performed By: #### L AB325, [id number] ####Studio Operator: RADHA SIMMONS ([id number])[address] BASIC METABOLIC PANELon Anion gap [Moles/Vol] 9 mmol/L Normal 3-13 [facility] Comment on above: Performed By: #### L AB15 #### Studio Operator: RADHA SIMMONS ([id number]) [facility]) [address] [place] [address] [place] Calcium [Mass/Vol] 8.5 mg/dL Low 8.8-10.0 [facility] Comment on above: Performed By: #### L AB15 #### Studio Operator: RADHA SIMMONS ([id number]) [facility]) [address] [place] [address] [place] Chloride [Moles/Vol] 103 mmol/L Normal 98-107 [facility] Comment on above: Performed By: #### L AB15 #### Studio Operator: RADHA SIMMONS ([id number]) [facility]) [address] [place] [address] CO2 [Moles/Vol] 22 mmol/L Normal 22-29 [facility] Comment on above: Performed By: #### L AB15 #### Studio Operator: RADHA SIMMONS ([id number]) [facility] ([facility]) [address] [place] [address] Creatinine [Mass/Vol] 0.96 mg/dL Normal 0.72-1.25 [facility] Comment on above: Performed By: #### L AB15 #### Studio Operator: RADHA SIMMONS ([id number]) [facility]) [address] [place] [address] GLOMERULAR FILTRATION RATE ML/MIN/1.73 SQ M.PREDICTED >90.0 Normal >60.0 [facility] Comment on above: Result Comment: Calc ulation based on the Chronic Kidney Disease Epidemiology Collaboration (CKD-EPI) equation refit without adjustment for race Performed By: #### L AB15 #### Studio Operator: RADHA SIMMONS ([id number]) [facility] ([facility]) [address] [place] [address] Glucose [Mass/Vol] 107 mg/dL High 74-100 [facility] Comment on above: Performed By: #### L AB15 #### Studio Operator: RADHA SIMMONS ([id number]) [facility]) [address] [place] [address] Potassium [Moles/Vol] 3.9 mmol/L Normal 3.5-5.1 [facility] Comment on above: Result Comment: TC Significant interference from hemolysis. Result integrity compromised. Interpret with caution. Performed By: #### L AB15 #### Studio Operator: RADHA SIMMONS ([id number]) [facility] ([facility]) [address] [place] [address] Sodium [Moles/Vol] 134 mmol/L Low 136-145 [facility] Comment on above: Performed By: #### L AB15 #### Studio Operator: RADHA [id number]) [facility] ([facility]) [address] [place] [address] Urea nitrogen [Mass/Vol] 31 mg/dL High 9-23 [facility] Comment on above: Performed By: #### L AB15 #### Studio Operator: RADHA SIMMONS ([id number]) [facility] ([facility]) [address] [place] [address] Basic metabolic 1998 panelon 05-06-2024 Anion gap [Moles/Vol] 9 mmol/L 3 - 13 mmol/L [facility] Calcium [Mass/Vol] 8.5 mg/dL Low 8.8 - 10. 0 mg/dL [facility] Chloride [Moles/Vol] 103 mmol/L 98 - 10 7 mmol/L [facility] CO2 [Moles/Vol] 22 mmol/L 22 - 29 mmol/L [facility] Creatinine [Mass/Vol] 0.96 mg/dL 0.72 - 1.25 mg/dL [facility] GFR/1.73 sq M.predicted (S/P/Bld) [Vol rate/Area] - PINF [facility] Comment on above: Calculation based on the Chronic Kidney Disease Epidemiology Collaboration (CKD-EPI) equation refit without adjustment for race Glucose [Mass/Vol] 107 mg/dL High 74 - 100 mg/dL [facility] Interpretation and review of laboratory results Abnormal [facility] Potassium [Moles/Vol] 3.9 mmol/L 3.5 - 5.1 mmol/L [facility] Comment on above: TC Significant interference from hemolysis. Result integrity compromised. Interpret with caution. Sodium [Moles/Vol] 134 mmol/L Low 136 - 145 mmol/L [facility] Urea nitrogen [Mass/Vol] 31 mg/dL High 9 - 23 mg/dL [facility] CBC (HEMOGRAM)on 05-06-2024 Erythrocyte distribution width (RBC) [Ratio] 20.8 % High 11.5-15.0 [facility] Comment on above: Performed By: #### L AB294 ####Studio Operator: RADHA SIMMONS ([id number])[facility] ([facility])[address] [place] [address] Hematocrit (Bld) [Volume fraction] 30.1 % Low 40.0-52.0 [facility] Comment on above: Performed By: #### L AB294 ####Studio Operator: RADHA SIMMONS ([id number])[facility] ([facility])[address] [place] [address] Hemoglobin (Bld) [Mass/Vol] 9.0 g/dL Low 13.0-18.0 [facility] Comment on above: Performed By: #### L AB294 ####Studio Operator: RADHA SIMMONS ([id number])[facility] ([facility])[address] [place] [address] MCH (RBC) [Entitic mass] 22.5 pg Low 26.0-34.0 [facility] Comment on above: Performed By: #### L AB294 ####Studio Operator: RADHA SIMMONS ([id number])[facility])[address] [place] [address] MCHC 29.9 % Low 30.5-36.0 [facility] Comment on above: Performed By: #### L AB294 ####Studio Operator: RADHA SIMMONS ([id number])[facility] ([facility])[address] [place] [address] MCV (RBC) [Entitic vol] 75.3 fL Low 77.0-99.0 [facility] Comment on above: Performed By: #### L AB294 ####Studio Operator: RADHA SIMMONS ([id number])[facility])[address] [place] [address] Platelet mean volume (Bld) [Entitic vol] 10.2 fL Normal 9.0-12.7 [facility] Comment on above: Performed By: #### L AB294 ####Studio Operator: RADHA SIMMONS ([id number])[facility])[address] [place] [address] Platelets (Bld) [#/Vol] 243 10*3/uL Normal 140-440 [facility] Comment on above: Performed By: #### L AB294 ####Studio Operator: RADHA SIMMONS ([id number])[facility] ([facility])[address] [place] [address] RBC (Bld) [#/Vol] 4.00 10*6/uL Low 4.40-5.90 [facility] Comment on above: Performed By: #### L AB294 ####Studio Operator: RADHA SIMMONS ([id number])[facility] ([facility])[address] [place] [address] WBC (Bld) [#/Vol] 11.1 10*3/uL High 3.6-10.7 [facility] Comment on above: Performed By: #### L AB294 ####Studio Operator: RADHA SIMMONS ([id number])[facility] ([facility])[address] [place] [address] CBC panel Auto (Bld)Ordered By: Krupa Rodriguez on 05-06-2024 Erythrocyte distribution width (RBC) [Ratio] 20.8 % High 11.5 - 15.0 % [facility] Hematocrit (Bld) [Volume fraction] 30.1 % Low 40.0 - 52.0 % [facility] Hemoglobin (Bld) [Mass/Vol] 9 g/dL Low 13.0 - 18.0 g/dL [facility] Interpretation and review of laboratory results Abnormal [facility] MCH (RBC) [Entitic mass] 22.5 pg Low 26.0 - 34.0 pg [facility] MCHC (RBC) [Mass/Vol] 29.9 % Low 30.5 - 36.0 % [facility] MCV (RBC) [Entitic vol] 75.3 fL Low 77.0 - 99.0 fL [facility] Platelet mean volume (Bld) [Entitic vol] 10.2 fL 9.0 - 12.7 fL [facility] Platelets (Bld) [#/Vol] 243 10*3/uL 140 - 440 10*3/uL [facility] RBC (Bld) [#/Vol] 4 10*6/uL Low 4.40 - 5.9 0 10*6/uL [facility] WBC (Bld) [#/Vol] 11.1 10*3/uL High 3.6 - 10.7 10*3/uL [facility] Health Consulton 05-06-2024 Consult CONSULT NOTE: [...] PLAN: 1. Obtain P2 Y12 study 2. Grandin Brilinta 90 mg twice daily x 30 [...] 10 to 15 minutes. Was hospitalized at [place] and had Plavix added at that time. [...] Symptoms resolved. He was again hospitalized at [facility]. No medication changes were made. April [...] Pt denie (more content not included)... Normal [facility] Laboratory - Coagulationon 0 05-06-2024 PT Coag (Bld) [Time] 10.9 s 9.0 - 12.[address] [facility] No Panel InformationOrdered By: Ana Maria Mancini on 05-06-2024 Interpretation and review of laboratory results Normal [facility] PRU Test (P2Y12) 211 180 - PINF [facility] Comment on above: >180 - 376 PRU [P2Y1 2 Reaction Units] - No drug present 10-180 PRU [P2Y12 Reaction Units] - Decreased platelet reactivity to P2Y12 inhibitor. [facility] No Panel Informationon 05-06 Interpretation and review of laboratory results Normal [facility] Nursing Noteon 05-06-2024 Nursing Note Phase 2 care complet ed. Iv removed and dc instructions provided. Will dc to home with family Right groin site benign and neuro unchanged NIH 0 Normal [facility] Nursing Note Patient arrived from home, Dr. Culp in to speak with the patient regarding DCA with possible carotid stenting, consent obtained. Patient was placed supine on exam table prepped and draped in sterile fashion. Telemetry monitors placed, sedation provided by CUSTOMER ASSOCIATE. Patient tolerated procedure well. Transfer to ICU. Normal [facility] PROTHROMBIN TIMEon INR Coag (PPP) [Relative time] 1.0 {INR} Normal 0.9-1.1 [facility] Comment on above: Result Comment: Luciano [...] Myocardial Infarction Performed By: #### L AB325, [id number] ####Studio Operator: RADHA SIMMONS ([id number])[facility] ([facility] PT Coag (PPP) [Time] 10.9 s Normal 9.0-12.0 [facility] Comment on above: Performed By: #### L AB325, [id number] ####Studio Operator: RADHA SIMMONS ([id number])[facility] ([facility])[address] [place] [address] PRU TEST (P2Y12)on PRU TEST (P2Y12) 211 Normal >=180 [facility] Comment on above: Result Comment: >180 - 376 PRU [P2Y12 Reaction Units] - No drug present 10-180 PRU [P2Y12 Reaction Units] - Decreased platelet reactivity to P2Y12 inhibitor. 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 He has had multiple events despite treatment with Eliquis (for atrial fibrillation), ASA and clopidogrel. The most recent event was 2 weeks ago, and he follows in [place]. CTA was concerning for left ICA severe stenosis and he presented for conventional angiography to evaluate and treat carotid stenosis if present and further evaluate right MCA stenosis. Consent: The benefits, alternatives, and risks to the procedure including but not limited to stroke, bleed, infection, dissection, pseudoaneurysm, LA, renal failure, radiation injury, hair loss, contrast [...] 4F dilator was exchanged for a 5 Trin[place]adian short sheath over a guidewire. The short [...] The left midd (more content not included)... 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 He has had multiple events despite treatment with Eliquis (for atrial fibrillation), ASA and clopidogrel. The most recent event was 2 weeks ago, and he follows in [place]. CTA was concerning for left ICA severe stenosis and he presented for conventional angiography to evaluate and treat carotid stenosis if present and further evaluate right MCA stenosis. Consent: The benefits, alternatives, and risks to the procedure including but not limited to stroke, bleed, infection, dissection, pseudoaneurysm, LA, renal failure, radiation injury, hair loss, contrast [...] 4F dilator was exchanged for a 5 Trin[place]adian short sheath over a guidewire. The short [...] AP and late (more content not included)... [facility] Radiology Study observation (narrative) [facility] alth RFA Cerebral arteries Bilate ral Views W contrast IAOrdered By: Oziel Culp on 05-06-2024 [facility] Work Phone: aPTT Coag (Bld) [Time]on aPTT Coag (PPP) [Time] 22.1 s 20.0 - 30.5 s [facility] NOTE: The therapeuti c time for Heparin anticoagulation, based on Xa activity inhibition, is an APTT of 46-80 seconds. [facility] Absolute lymphocyte countOrd ered By: Rito Lundberg on 05-05-2024 Lymphocytes Auto (Unsp spec) [#/Vol] 1.51 10*3/uL 0.83-4.51 [facility] Automated lymphocyte count a s percentage of total leukocytesOrdered By: Rito Lundberg on 05-05-2024 Lymphocytes/100 WBC Auto (Unsp spec) 11.3 % Low 19-41 [facility] Basophil percentageOrdered B y: Rito Lundberg on 05-05-2024 Basophils/100 WBC (Bld) 0.4 % 0-1 [facility] Blood manual differential co mment interpretation (narrative result)Ordered By: Rito Lundberg on 05-05-2024 Manual differential comment Cedrick (Bld) [Interp] SCANNED [facility] CBC W/Diff, Automatedon -0 OVALOCYTE 2+ Normal [facility] Comment on above: Performed By: #### L 503.6030, L503.0105, L100.0100, L503.6550 ####[facility] [address] [place], [address] Anisocytosis Ql (Bld) 2+ Normal [facility] Comment on above: Performed By: #### L 503.6030, L503.0105, L100.0100, L503.6550 ####[facility] [address] [place], [address] MICROCYTIC 1+ Normal [facility] Comment on above: Performed By: #### L 503.6030, L503.0105, L100.0100, L503.6550 ####[facility] [address] [place], [address] PLT EST ADEQUATE Normal ADEQ [facility] Comment on above: Performed By: #### L 503.6030, L503.0105, L100.0100, L503.6550 ####[facility] [address] [place], [address] SMEAR COMMENT SCANNED Normal [facility] Comment on above: Performed By: #### L 503.6030, L503.0105, L100.0100, L503.6550 ####[facility] [address] [place], [address] Eosinophil percentageOrdered By: Rito Lundberg on 05-05-2024 Eosinophils/100 WBC (Bld) 2.1 % 0-5 [facility] Erythrocyte distribution wid th ratioOrdered By: [facility] Lund[facility] on 05-05-2024 Erythrocyte distribution width (RBC) [Ratio] 21.0 % High 11.6-14.6 [facility] Erythrocyte distribution wid th standard deviationOrdered By: Rito Lundberg on 05-05-2024 Erythrocyte distribution width (RBC) [Ratio] 56.7 fl High 35.1-43.9 [facility] Ferritinon 05-05-2024 Ferritin [Mass/Vol] 134 ng/mL Normal 26-388 [facility] Comment on above: Performed By: #### L 503.6030, L503.0105, L100.0100, L503.6550 ####[facility] [address] [place], [address] Hematocrit Auto (Bld) [Volum e fraction]Ordered By: Rito Lundberg on 05-05-2024 Hematocrit (Bld) [Volume fraction] 31.6 % Low 40-54 [facility] Hemoglobin measurementOrdere d By: Rito Lundberg on 02-04-2025 Hemoglobin (Bld) [Mass/Vol] 9.3 g/dL Low 13.0-16.5 [facility] Immature granulocytes/100 WB C Auto (Bld)Ordered By: Rito Lundberg on 05-05-2024 Immature granulocytes/100 WBC (Bld) 0.600 % 0.0-0.9 [facility] Iron measurement (mass/mass) Ordered By: Rito Lundberg on 05-05-2024 Iron (Unsp spec) [Mass/Mass] 74 ug/dL 65-175 [facility] Iron+Iron Binding Capacityon 05-05-2024 Iron [Mass/Vol] 74 ug/dL Normal 65-175 [facility] Comment on above: Performed By: #### L 503.6030, L503.0105, L100.0100, L503.6550 ####[facility] [address] [place], [address] IRON SATURATION 22.0 Normal 15.0-55.0 [facility] Comment on above: Performed By: #### L 503.6030, L503.0105, L100.0100, L503.6550 ####[facility] [address] [place], [address] TIBC 337 ug/dL Normal 250-450 [facility] Comment on above: Performed By: #### L 503.6030, L503.0105, L100.0100, L503.6550 ####[facility] [address] [place], [address] MCV (mean corpuscular volume ) determinationOrdered By: Rito Lundberg on 05-05-2024 MCV (RBC) [Entitic vol] 76.5 fL Low 80-94 [facility] Mean corpuscular hemoglobin (MCH) determinationOrdered By: Rito Lundberg on 05-05-2024 MCH (RBC) [Entitic mass] 22.5 pg Low 27.0-32.0 [facility] Monocyte percentageOrdered B y: Rito Lundberg on 05-05-2024 Monocytes/100 WBC (Bld) 8.1 % 0-10 [facility] Neutrophil percentageOrdered By: Rito Lundberg on 05-05-2024 Neutrophils/100 WBC (Bld) 77.5 % High 47-70 [facility] No Panel InformationOrdered By: Rito Lundberg on 05-05-2024 2+ [facility] Nursing Noteon 05-05-2024 Nursing Note Report given to IR rickey marsh, neuro assessment completed along with groin site check. Normal [facility] Oncology Visit Reporton Oncology Visit Report Normal [facility] Ovalocyte detectionOrdered B y: Rito Lundberg on 05-05-2024 Ovalocytes LM Ql (Bld) 2+ [facility] Platelet countOrdered By: Chanell Lundberg on 05-05-2024 Platelets (Bld) [#/Vol] 303 10*3/uL 150-450 [facility] Platelet estimateOrdered By: Rito Lundberg on 05-05-2024 Platelets LM Ql (Bld) ADEQUATE ADEQ [facility] RBC Auto (Bld) [#/Vol]Ordere d By: Rito Lundberg on 05-05-2024 RBC (Bld) [#/Vol] 4.13 10*6/uL Low 4.6-6.2 [facility] Serum or plasma iron saturat ion measurement (mass fraction)Ordered By: Rito Lundberg on 05-05-2024 Iron saturation [Mass fraction] 22.0 % 15.0-55.0 [facility] Vitamin B12on 05-05-2024 Cobalamin (Vitamin B12) [Mass/Vol] 1259 pg/mL High 211-911 [facility] Comment on above: Performed By: #### L 503.6030, L503.0105, L100.0100, L503.6550 ####[facility] [address] [place], [place], [id number] Vitamin B12 measurementOrder ed By: Rito Lundberg on 05-05-2024 Cobalamin (Vitamin B12) [Mass/Vol] 1259 pg/mL High 211-911 [facility] White blood cell (WBC) count Ordered By: Rito Lundberg on 05-05-2024 WBC (Bld) [#/Vol] 13.3 10*3/uL High 4.4-11.0 [facility] Pulmonary Visit Reporton Pulmonary Visit Report Normal [facility] Cardiology Visit Reporton Cardiology Visit Report Normal [facility] MR/BMS.BVSon 04-30-2024 MR/BMS.BVS Normal [facility] Office Visit Reporton 2024 Office Visit Report Normal [facility] 36on 04-27-2024 36 Spoke with patient t [...] iv contrast dye, iodine, or shellfish. Normal [facility] Office Visiton 04-27-2024 Follow-up visit [id number] Krunal Leos 1965 M Date Provider Department Center 04/27/2024 [id number] JAUREGUI [facility] None No family history on file Level of Service:06355 ND OFFICE/OUTPATIENT ESTABLISHED MOD [facility] 30 MIN Reason for Visit and Comments: Follow-up [308932] - discuss carotid duplex 04/06/23 [facility] Progress Noteon 04-27-2024 Progress Note Vascular Surgery [...] mg) by mouth 2 times daily. 10/05/23 Hrameet Stallworth MD aspirin 325 MG tablet Take [...] mouth 3 times daily. 10/05/23 11/04/23 Harmeet Stallwroth MD clopidogrel (Plavix) 75 MG tablet Take 75 mg by mouth daily. 12/31/23 Historical Provider, Continuous Glucose Sensor (Dexcom G6 Sensor) [facility] Dexcom G6 Sensor [facility], USE DIRECTED FOR CONTINUOUS BLOOD GLUCOSE [...] Stallworth MD ergocalciferol (Vitamin D2) 1.25 MG (97609 UT) capsule Take 1 capsule by mouth [...] 10/06/23 01/06/24 Harmeet Stallworth MD HYDROcodone-acetaminoph en ([place]) 5-325 MG tablet Take 1 tablet by [...] MD pantop (more content not included)... Normal [facility] Vitamin B12on 04-27-2024 Cobalamin (Vitamin B12) [Mass/Vol] 572 pg/mL Normal 211-911 [facility] Comment on above: Performed By: #### L 100.0100, L100.9950, L503.6550, L503.0105, L503.6030 ####[facility] [address] [place], [place], [id number] Absolute lymphocyte countOrd ered By: Cookie Arabella on 04-25-2024 Lymphocytes Auto (Unsp spec) [#/Vol] 1.80 10*3/uL 0.83-4.51 [facility] Automated lymphocyte count a s percentage of total leukocytesOrdered By: Cookie Arabella on 04-25-2024 Lymphocytes/100 WBC Auto (Unsp spec) 14.4 % Low 19-41 [facility] Basophil percentageOrdered B y: on 04-25-2024 Basophils/100 WBC (Bld) 0.5 % 0-1 [facility] Bedside Glucoseon 04-25-2024 FINGERSTICK GLU 252 mg/dL High 74-106 [facility] Comment on above: Result Comment: NAI BRADOFRD OF PATIENT CARE PER NURSING PROTOCOL Performed By: #### L 501.080 ####[facility] [address] [place], [address] FINGERSTICK GLU 160 mg/dL High 74-106 [facility] Comment on above: Result Comment: ANI GEMENT OF PATIENT CARE PER NURSING PROTOCOL Performed By: #### L 501.080 ####[facility] [address] [place], [address] FINGERSTICK GLU 249 mg/dL High 74-106 [facility] Comment on above: Result Comment: ANI GEMENT OF PATIENT CARE PER NURSING PROTOCOL Performed By: #### L 501.080 ####[facility] [address] [place], [address] Bilirubin, totalOrdered By: Cookie Bell on 04-25-2024 Bilirubin [Mass/Vol] 0.60 mg/dL 0.20-1.00 [facility] Blood manual differential co mment interpretation (narrative result)Ordered By: Cookie Bell on 04-25-2024 Manual differential comment Cedrick (Bld) [Interp] SCANNED [facility] Blood polychromasia detectio n by light microscopyOrdered By: Cookie Bell on 04-25-2024 Polychromasia LM Ql (Bld) RARE [facility] Blood schistocyte detection by light microscopyOrdered By: Cookie Arabella on 04-25-2024 Schistocytes LM Ql (Bld) RARE [facility] Brain without Contraston Brain without Contrast Normal [facility] CBC W/Diff, Automatedon 04-02 [employer] CELLS RARE Normal [facility] Comment on above: Performed By: #### L 501.9520, L500.4100, L501.9985, L500.4050, L100.0100 ####[facility] [address] [place], [address] MICROCYTIC 1+ Normal [facility] Comment on above: Performed By: #### L 501.9520, L500.4100, L501.9985, L500.4050, L100.0100 ####[facility] [address] [place], [address] SCHISTOCYTES RARE Normal [facility] Comment on above: Performed By: #### L 501.9520, L500.4100, L501.9985, L500.4050, L100.0100 ####[facility] [address] [place], [address] POLYCHROMASIA RARE [facility] Comment on above: Performed By: #### L 501.9520, L500.4100, L501.9985, L500.4050, L100.0100 ####[facility] [address] [place], [address] SMEAR COMMENT SCANNED Normal [facility] Comment on above: Performed By: #### L 501.9520, L500.4100, L501.9985, L500.4050, L100.0100 ####[facility] [address] [place], [address] Carbon dioxide measurementOr dered By: Cookie Bell on 04-25-2024 CO2 [Moles/Vol] 26.0 mmol/L 21.0-32.0 [facility] Chloride measurementOrdered By: Cookie Bell on 04-25-2024 Chloride [Moles/Vol] 103 mmol/L 98-107 [facility] Comprehensive Metabolic Prof ilon 04-25-2024 Albumin [Mass/Vol] 2.8 g/dL Low 3.2-5.0 [facility] Comment on above: Performed By: #### L 501.9520, L500.4100, L501.9985, L500.4050, L100.0100 ####[facility] [address] [place], [address] Albumin/Globulin [Mass ratio] 0.7 {ratio} Low 0.9-2.4 [facility] Comment on above: Performed By: #### L 501.9520, L500.4100, L501.9985, L500.4050, L100.0100 ####[facility] [address] [place], [address] ALK P 69 U/L Normal 45-117 [facility] Comment on above: Performed By: #### L 501.9520, L500.4100, L501.9985, L500.4050, L100.0100 ####[facility] [address] [place], [address] ALT [Catalytic activity/Vol] 18 U/L Normal 16-61 [facility] Comment on above: Performed By: #### L 501.9520, L500.4100, L501.9985, L500.4050, L100.0100 ####[facility] [address] [place], [address] AST [Catalytic activity/Vol] 13 U/L Low 15-37 [facility] Comment on above: Performed By: #### L 501.9520, L500.4100, L501.9985, L500.4050, L100.0100 ####[facility] [address] [place], [address] Bilirubin [Mass/Vol] 0.60 mg/dL Normal 0.20-1.00 [facility] Comment on above: Result Comment: For patients on eltrombopag therapy, use of Dimension [place] TBIL is not recommended. Performed By: #### L 501.9520, L500.4100, L501.9985, L500.4050, L100.0100 ####[facility] [address] [place], [address] BUN/CRE 26.3 RATIO High 10-20 [facility] Comment on above: Performed By: #### L 501.9520, L500.4100, L501.9985, L500.4050, L100.0100 ####[facility] [address] [place], [address] CA,Total 8.5 mg/dL Normal 8.5-10.1 [facility] Comment on above: Performed By: #### L 501.9520, L500.4100, L501.9985, L500.4050, L100.0100 ####[facility] [address] [place], [address] Chloride [Moles/Vol] 103 mmol/L Normal 98-107 [facility] Comment on above: Performed By: #### L 501.9520, L500.4100, L501.9985, L500.4050, L100.0100 ####[facility] [address] [place], [address] CO2 [Moles/Vol] 26.0 mmol/L Normal 21.0-32.0 [facility] Comment on above: Performed By: #### L 501.9520, L500.4100, L501.9985, L500.4050, L100.0100 ####[facility] [address] [place], [address] Creatinine [Mass/Vol] 1.14 mg/dL Normal 0.70-1.30 [facility] Comment on above: Result Comment: The validity of the calculated GFR GFRAA in patients over70 years has not been determined. Clinical correlation isessential. Performed By: #### L 501.9520, L500.4100, L501.9985, L500.4050, L100.0100 ####[facility] [address] [place], [address] ECRCL 94.76 ml/min Normal [facility] Comment on above: Performed By: #### L 501.9520, L500.4100, L501.9985, L500.4050, L100.0100 ####[facility] [address] [place], [address] EST GFR - AA 84 mL/min Normal >60 [facility] Comment on above: Result Comment: Afri can [place] GFR Calc Performed By: #### L 501.9520, L500.4100, L501.9985, L500.4050, L100.0100 ####[facility] [address] [place], [address] GAP 8 Normal 5-15 [facility] Comment on above: Performed By: #### L 501.9520, L500.4100, L501.9985, L500.4050, L100.0100 ####[facility] [address] [place], [address] GFR/1.73 sq M.predicted among non-blacks MDRD (S/P/Bld) [Vol rate/Area] 70 mL/min/{1.73_m2} Normal >60 [facility] Comment on above: Result Comment: Non- GFR Calc Performed By: #### L 501.9520, L500.4100, L501.9985, L500.4050, L100.0100 ####[facility] [address] [place], [address] Globulin (S) [Mass/Vol] 4.0 g/dL Normal 2.2-4.2 [facility] Comment on above: Performed By: #### L 501.9520, L500.4100, L501.9985, L500.4050, L100.0100 ####[facility] [address] [place], [address] Glucose [Mass/Vol] 172 mg/dL High 74-106 [facility] Comment on above: Result Comment: Fast ing Glucose result greater than or equal to 126 mg/dLsuggests DIABETES MELLITUS per A.D.A. criteria. Performed By: #### L 501.9520, L500.4100, L501.9985, L500.4050, L100.0100 ####[facility] [address] [place], [address] Potassium [Moles/Vol] 3.7 mmol/L Normal 3.5-5.1 [facility] Comment on above: Performed By: #### L 501.9520, L500.4100, L501.9985, L500.4050, L100.0100 ####[facility] [address] [place], [address] Sodium [Moles/Vol] 137 mmol/L Normal 136-145 [facility] Comment on above: Performed By: #### L 501.9520, L500.4100, L501.9985, L500.4050, L100.0100 ####[facility] [address] [place], [address] T PROT 6.8 g/dL Normal 6.4-8.2 [facility] Comment on above: Performed By: #### L 501.9520, L500.4100, L501.9985, L500.4050, L100.0100 ####[facility] [address] [place], [address] Urea nitrogen [Mass/Vol] 30 mg/dL High 7-18 [facility] Comment on above: Performed By: #### L 501.9520, L500.4100, L501.9985, L500.4050, L100.0100 ####[facility] [address] [place], [address] Eosinophil percentageOrdered By: White on 04-25-2024 Eosinophils/100 WBC (Bld) 3.1 % 0-5 [facility] Erythrocyte distribution wid th ratioOrdered By: White on 04-25-2024 Erythrocyte distribution width (RBC) [Ratio] 20.5 % High 11.6-14.6 [facility] Erythrocyte distribution wid th standard deviationOrdered By: White on 04-25-2024 Erythrocyte distribution width (RBC) [Ratio] 54.5 fl High 35.1-43.9 [facility] Glomerular filtration rate ( GFR) estimationOrdered By: White on 04-25-2024 GFR/1.73 sq M.predicted among non-blacks MDRD (S/P/Bld) [Vol rate/Area] 70 mL/min/{1.73_m2} >60 [facility] Glucose measurementOrdered B y: Cookie Bell on 04-25-2024 Glucose [Mass/Vol] 172 mg/dL High 74-106 [facility] Glucose measurement at [facility] deOrdered By: Ochoa Johnson on 04-25-2024 Glucose [Mass/Vol] 252 mg/dL High 74-106 [facility] Hematocrit Auto (Bld) [Volum e fraction]Ordered By: Cookie Bell on 04-25-2024 Hematocrit (Bld) [Volume fraction] 29.2 % Low 40-54 [facility] Hemoglobin A1con 04-25-2024 HbA1c (Bld) [Mass fraction] 7.3 % High 3.8-5.6 [facility] Comment on above: Result Comment: Norm al < 5.7 % Prediabetic 5.7 - 6.4 % Diabetic >or= 6.5 % Please note range changes. Performed By: #### L 501.9520, L500.4100, L501.9985, L500.4050, L100.0100 ####[facility] [address] [place], [place], [address] Hemoglobin A1c percentageOrd ered By: Cookie Bell on 04-25-2024 HbA1c (Bld) [Mass fraction] 7.3 % High 3.8-5.6 [facility] Hemoglobin measurementOrdere d By: Cookie Bell on 04-25-2024 Hemoglobin (Bld) [Mass/Vol] 8.6 g/dL Low 13.0-16.5 [facility] High density lipoprotein (HD L) measurementOrdered By: Cookie Bell on 04-25-2024 High density lipoprotein (HDL) measurement 38 mg/dL Low >40 [facility] Immature granulocytes/100 WB C Auto (Bld)Ordered By: Cookie Bell on 04-25-2024 Immature granulocytes/100 WBC (Bld) 0.600 % 0.0-0.9 [facility] L501.4020on 04-25-2024 TROPONIN-I HS 76 pg/mL Normal 3.0-78.0 [facility] Comment on above: Order Comment: Comme nts: SPECIMEN #3'TROP' Serial specimen #1, #2 or #3: 3 Result Comment: Plea se Note: New Test Units and Gender Specific Reference Ranges. For more information see Policy Stat Procedure [place] High Sensitivity Troponin (TNIH) and attachments. Performed By: #### L 501.4020 ####[facility] [address] [place], [address] TROPONIN-I HS 103 pg/mL High 3.0-78.0 [facility] Comment on above: Order Comment: Comme nts: SPECIMEN #2'TROP' Serial specimen #1, #2 or #3: 2 Result Comment: Plea se Note: New Test Units and Gender Specific Reference Ranges. For more information see Policy Stat Procedure [place] High Sensitivity Troponin (TNIH) and attachments. Performed By: #### L 501.4020 ####[facility] [address] [place], [address] Lipid Profileon 04-25-2024 Cholesterol [Mass/Vol] 127 mg/dL Normal 200 [facility] Comment on above: Result Comment: <200 mg/dL Desirable 200-240 mg/dL Borderline >240 mg/dL High Risk Performed By: #### L 501.9520, L500.4100, L501.9985, L500.4050, L100.0100 ####[facility] [address] [place], [address] Cholesterol in HDL [Mass/Vol] 38 mg/dL Low [facility] Comment on above: Result Comment: The drugs N-Acetylcysteine and Metamizole may falselydepress this assay. Reference Range HDL <40 mg/dL Low HDL Cholesterol HDL >or= 60 mg/dL High HDL Cholesterol Performed By: #### L 501.9520, L500.4100, L501.9985, L500.4050, L100.0100 ####[facility] [address] [place], [address] Cholesterol in LDL [Mass/Vol] 46 mg/dL Normal 0-130 [facility] Comment on above: Performed By: #### L 501.9520, L500.4100, L501.9985, L500.4050, L100.0100 ####[facility] [address] [place], [address] Cholesterol in VLDL [Mass/Vol] 43 mg/dL High 5-40 [facility] Comment on above: Performed By: #### L 501.9520, L500.4100, L501.9985, L500.4050, L100.0100 ####[facility] [address] [place], [address] Triglyceride [Mass/Vol] 216 mg/dL High [facility] Comment on above: Result Comment: The drugs N-Acetylcysteine and Metamizole may falselydepress this assay.Serum Triglycerides Reference Interval Normal <150 mg/dL Borderline high 150 - 199 mg/dL High 200 - 499 mg/dL Very High > or = 500 mg/dL Performed By: #### L 501.9520, L500.4100, L501.9985, L500.4050, L100.0100 ####[facility] [address] [place], [address] Low density lipoprotein (LDL ) cholesterol measurementOrdered By: Arabella on 04-25-2024 Low density lipoprotein (LDL) cholesterol measurement 46 mg/dL 0-130 [facility] MCV (mean corpuscular volume ) determinationOrdered By: on 04-25-2024 MCV (RBC) [Entitic vol] 75.3 fL Low 80-94 [facility] MR/CON.PCM.NEon 04-25-2024 MR/CON.PCM.NE Normal [facility] Mean corpuscular hemoglobin (MCH) determinationOrdered By: Arabella on 04-25-2024 MCH (RBC) [Entitic mass] 22.2 pg Low 27.0-32.0 [facility] Monocyte percentageOrdered B y: on 01-25-2025 Monocytes/100 WBC (Bld) 9.8 % 0-10 [facility] Neutrophil percentageOrdered By: Cookie Bell on 04-25-2024 Neutrophils/100 WBC (Bld) 71.6 % High 47-70 [facility] No Panel InformationOrdered By: Cookie Bell on 04-25-2024 13 U/L Low 15-37 [facility] Platelet countOrdered By: Katey Bell on 04-25-2024 Platelets (Bld) [#/Vol] 300 10*3/uL 150-450 [facility] Potassium measurementOrdered By: Cookie Bell on 04-25-2024 Potassium [Moles/Vol] 3.7 mmol/L 3.5-5.1 [facility] RBC Auto (Bld) [#/Vol]Ordere d By: Cookie Bell on 04-25-2024 RBC (Bld) [#/Vol] 3.88 10*6/uL Low 4.6-6.2 [facility] Serum globulin measurementOr dered By: Cookie Bell on 04-25-2024 Globulin (S) [Mass/Vol] 4.0 g/dL 2.2-4.2 [facility] Serum or plasma alanine briscoe otransferase (ALT) measurementOrdered By: Cookie Bell on 04-25-2024 ALT [Catalytic activity/Vol] 18 U/L 16-61 [facility] Serum or plasma albumin grazyna urement (mass/volume)Ordered By: Cookie Bell on 04-25-2024 Albumin [Mass/Vol] 2.8 g/dL Low 3.2-5.0 [facility] Serum or plasma alkaline benjamin sphatase measurementOrdered By: Cookie Bell on 04-25-2024 ALP [Catalytic activity/Vol] 69 U/L 45-117 [facility] Serum or plasma calcium grazyna urement (mass/volume)Ordered By: Cookie Bell on 04-25-2024 Calcium [Mass/Vol] 8.5 mg/dL 8.5-10.1 [facility] Serum or plasma cholesterol measurement (mass/volume)Ordered By: Cookie Bell on 04-25-2024 Cholesterol [Mass/Vol] 127 mg/dL <200 [facility] Serum or plasma creatinine m easurement (mass/volume)Ordered By: Cookie Bell on 04-25-2024 Creatinine [Mass/Vol] 1.14 mg/dL 0.70-1.30 [facility] Serum or plasma thyroid stim ulating hormone (TSH) measurement (units/volume)Ordered By: Cookie Bell on 04-25-2024 TSH Qn 5.220 uIU/mL High 0.358-3.740 [facility] Serum or plasma urea nitroge n measurement (mass/volume)Ordered By: Cookie Bell on 04-25-2024 Urea nitrogen [Mass/Vol] 30 mg/dL High 7-18 [facility] Sodium levelOrdered By: Celyu mn Arabella on 04-25-2024 Sodium [Moles/Vol] 137 mmol/L 136-145 [facility] Target cell detectionOrdered By: Cookie Bell on 04-25-2024 Target cells LM Ql (Bld) RARE [facility] Thyroid Stim Hormone (TSH)on 04-25-2024 TSH 5.220 uIU/mL High 0.358-3.740 [facility] Comment on above: Performed By: #### L 501.9520, L500.4100, L501.9985, L500.4050, L100.0100 ####[facility] [address] [place], [place], [id number] Total proteinOrdered By: Cely umn Arabella on 04-25-2024 Protein [Mass/Vol] 6.8 g/dL 6.4-8.2 [facility] Troponin IOrdered By: Cookie Bell on 04-25-2024 Troponin I 76 pg/mL 3.0-78.0 [facility] Very low density lipoprotein (VLDL) cholesterol measurementOrdered By: Cookie Bell on 04-25-2024 Very low density lipoprotein (VLDL) cholesterol measurement 43 mg/dL High 5-40 [facility] White blood cell (WBC) count Ordered By: Cookie Bell on 04-25-2024 WBC (Bld) [#/Vol] 12.5 10*3/uL High 4.4-11.0 [facility] 12 Lead EKGon 04-24-2024 12 Lead EKG Normal [facility] Abdomen Single View (Portabl e)on 04-24-2024 Abdomen Single View (Portable) Normal [facility] Absolute lymphocyte countOrd ered By: Radha Khan on 04-24-2024 Lymphocytes Auto (Unsp spec) [#/Vol] 2.02 10*3/uL 0.83-4.51 [facility] Activated partial thrombopla stin time (aPTT) in platelet poor plasma by coagulation aOrdered By: Daniel Mcneil on 04-24-2024 aPTT Coag (PPP) [Time] 24.8 s 24.1-36.2 [facility] Automated lymphocyte count a s percentage of total leukocytesOrdered By: Radha Khan on 04-24-2024 Lymphocytes/100 WBC Auto (Unsp spec) 14.4 % Low 19-41 [facility] Basic Metabolic Profile (BMP )on 04-24-2024 BUN/CRE 28.5 RATIO High 10-20 [facility] Comment on above: Order Comment: 'TROP ' Serial specimen #1, #2 or #3: 1 Performed By: #### L 500.2500, L300.3900, L300.4310, L100.0100, L501.4020 ####[facility] [address] [place], [address] CA,Total 8.9 mg/dL Normal 8.5-10.1 [facility] Comment on above: Order Comment: 'TROP ' Serial specimen #1, #2 or #3: 1 Performed By: #### L 500.2500, L300.3900, L300.4310, L100.0100, L501.4020 ####[facility] [address] [place], [address] Chloride [Moles/Vol] 106 mmol/L Normal 98-107 [facility] Comment on above: Order Comment: 'TROP ' Serial specimen #1, #2 or #3: 1 Performed By: #### L 500.2500, L300.3900, L300.4310, L100.0100, L501.4020 ####[facility] [address] [place], [address] CO2 [Moles/Vol] 27.0 mmol/L Normal 21.0-32.0 [facility] Comment on above: Order Comment: 'TROP ' Serial specimen #1, #2 or #3: 1 Performed By: #### L 500.2500, L300.3900, L300.4310, L100.0100, L501.4020 ####[facility] [address] [place], [address] Creatinine [Mass/Vol] 1.30 mg/dL Normal 0.70-1.30 [facility] Comment on above: Order Comment: 'TROP ' Serial specimen #1, #2 or #3: 1 Result Comment: The validity of the calculated GFR GFRAA in patients over70 years has not been determined. Clinical correlation isessential. Performed By: #### L 500.2500, L300.3900, L300.4310, L100.0100, L501.4020 ####[facility] [address] [place], [address] ECRCL 84.56 ml/min Normal [facility] Comment on above: Order Comment: 'TROP ' Serial specimen #1, #2 or #3: 1 Performed By: #### L 500.2500, L300.3900, L300.4310, L100.0100, L501.4020 ####[facility] [address] [place], [address] EST GFR - AA 72 mL/min Normal >60 [facility] Comment on above: Order Comment: 'TROP ' Serial specimen #1, #2 or #3: 1 Result Comment: Afri can [place] GFR Calc Performed By: #### L 500.2500, L300.3900, L300.4310, L100.0100, L501.4020 ####[facility] [address] [place], [address] GAP 6 Normal 5-15 [facility] Comment on above: Order Comment: 'TROP ' Serial specimen #1, #2 or #3: 1 Performed By: #### L 500.2500, L300.3900, L300.4310, L100.0100, L501.4020 ####[facility] [address] [place], [address] GFR/1.73 sq M.predicted among non-blacks MDRD (S/P/Bld) [Vol rate/Area] 60 mL/min/{1.73_m2} Normal >60 [facility] Comment on above: Order Comment: 'TROP ' Serial specimen #1, #2 or #3: 1 Result Comment: Non- GFR Calc Performed By: #### L 500.2500, L300.3900, L300.4310, L100.0100, L501.4020 ####[facility] [address] [place], [address] Glucose [Mass/Vol] 81 mg/dL Normal 74-106 [facility] Comment on above: Order Comment: 'TROP ' Serial specimen #1, #2 or #3: 1 Performed By: #### L 500.2500, L300.3900, L300.4310, L100.0100, L501.4020 ####[facility] [address] [place], [address] Potassium [Moles/Vol] 4.2 mmol/L Normal 3.5-5.1 [facility] Comment on above: Order Comment: 'TROP ' Serial specimen #1, #2 or #3: 1 Performed By: #### L 500.2500, L300.3900, L300.4310, L100.0100, L501.4020 ####[facility] [address] [place], [address] Sodium [Moles/Vol] 139 mmol/L Normal 136-145 [facility] Comment on above: Order Comment: 'TROP ' Serial specimen #1, #2 or #3: 1 Performed By: #### L 500.2500, L300.3900, L300.4310, L100.0100, L501.4020 ####[facility] [address] [place], [address] Urea nitrogen [Mass/Vol] 37 mg/dL High 7-18 [facility] Comment on above: Order Comment: 'TROP ' Serial specimen #1, #2 or #3: 1 Performed By: #### L 500.2500, L300.3900, L300.4310, L100.0100, L501.4020 ####[facility] [address] [place], [address] Basophil percentageOrdered B y: Radha Khan on 04-24-2024 Basophils/100 WBC (Bld) 0.4 % 0-1 [facility] CBC W/Diff, Automatedon 04-02 Anisocytosis Ql (Bld) 1+ Normal [facility] Comment on above: Performed By: #### L 100.0100, L100.9950, L503.6550, L503.0105, L503.6030 ####[facility] [address] [place], [address] HYPOCHROMASIA 1+ Normal [facility] Comment on above: Performed By: #### L 100.0100, L100.9950, L503.6550, L503.0105, L503.6030 ####[facility] [address] [place], [address] MICROCYTIC 1+ Normal [facility] Comment on above: Performed By: #### L 100.0100, L100.9950, L503.6550, L503.0105, L503.6030 ####[facility] [address] [place], [address] OVALOCYTE 1+ Normal [facility] Comment on above: Performed By: #### L 100.0100, L100.9950, L503.6550, L503.0105, L503.6030 ####[facility] [address] [place], [address] PLT EST ADEQUATE Normal ADEQ [facility] Comment on above: Performed By: #### L 100.0100, L100.9950, L503.6550, L503.0105, L503.6030 ####[facility] [address] [place], [address] RED CELL MORPH N CHROM Normal NORM C C [facility] Comment on above: Performed By: #### L 100.0100, L100.9950, L503.6550, L503.0105, L503.6030 ####[facility] [address] [place], [address] Anisocytosis Ql (Bld) 1+ Normal [facility] Comment on above: Performed By: #### L 500.2500, L300.3900, L300.4310, L100.0100, L501.4020 ####[facility] [address] [place], [address] HYPOCHROMASIA 1+ Normal [facility] Comment on above: Performed By: #### L 500.2500, L300.3900, L300.4310, L100.0100, L501.4020 ####[facility] [address] [place], [address] MICROCYTIC 1+ Normal [facility] Comment on above: Performed By: #### L 500.2500, L300.3900, L300.4310, L100.0100, L501.4020 ####[facility] [address] [place], [address] OVALOCYTE 1+ Normal [facility] Comment on above: Performed By: #### L 500.2500, L300.3900, L300.4310, L100.0100, L501.4020 ####[facility] [address] [place], [address] PLT EST ADEQUATE Normal ADEQ [facility] Comment on above: Performed By: #### L 500.2500, L300.3900, L300.4310, L100.0100, L501.4020 ####[facility] [address] [place], [place], [id number] RED CELL MORPH N CHROM Normal NORM C C [facility] Comment on above: Performed By: #### L 500.2500, L300.3900, L300.4310, L100.0100, L501.4020 ####[facility] [address] [place], [place], [id number] Chest 1 Viewon 04-24-2024 Chest 1 View Normal [facility] Emergency Department Summary on 04-24-2024 Emergency Department Summary Normal [facility] Eosinophil percentageOrdered By: Radha Khan on 04-24-2024 Eosinophils/100 WBC (Bld) 2.6 % 0-5 [facility] Erythrocyte distribution wid th ratioOrdered By: Radha Khan on 04-24-2024 Erythrocyte distribution width (RBC) [Ratio] 20.5 % High 11.6-14.6 [facility] Erythrocyte distribution wid th standard deviationOrdered By: Radha Khan on 04-24-2024 Erythrocyte distribution width (RBC) [Ratio] 56.2 fl High 35.1-43.9 [facility] Erythrocyte morphology asses smentOrdered By: Daniel Mcneil on 04-24-2024 RBC morphology finding Nom (Bld) N CHROM NORMAL NORM C&C [facility] Erythrocyte morphology asses smentOrdered By: Radha Khan on 04-24-2024 RBC morphology finding Nom (Bld) N CHROM NORMAL NORM C&C [facility] Ferritinon 04-24-2024 Ferritin [Mass/Vol] 102 ng/mL Normal 26-388 [facility] Comment on above: Performed By: #### L 100.0100, L100.9950, L503.6550, L503.0105, L503.6030 ####[facility] [address] [place], [place], [id number] H AND P Exam - Hospitaliston 04-24-2024 H&P Exam - Hospitalist Normal [facility] Hematocrit Auto (Bld) [Volum e fraction]Ordered By: Radha Khan on 04-24-2024 Hematocrit (Bld) [Volume fraction] 33.0 % Low 40-54 [facility] Hemoglobin measurementOrdere d By: Radha Khan on 04-24-2024 Hemoglobin (Bld) [Mass/Vol] 9.0 g/dL Low 13.0-16.5 [facility] Hypochromatic red blood cell detectionOrdered By: Daniel Mcneil on 04-24-2024 Hypochromia Ql (Bld) 1+ [facility] Hypochromatic red blood cell detectionOrdered By: Radha Khan on 04-24-2024 Hypochromia Ql (Bld) 1+ [facility] Immature granulocytes/100 WB C Auto (Bld)Ordered By: Radha Khan on 04-24-2024 Immature granulocytes/100 WBC (Bld) 0.700 % 0.0-0.9 [facility] Iron measurement (mass/mass) Ordered By: Radha Khan on 04-24-2024 Iron (Unsp spec) [Mass/Mass] 64 ug/dL Low 65-175 [facility] Iron+Iron Binding Capacityon 04-24-2024 Iron [Mass/Vol] 64 ug/dL Low 65-175 [facility] Comment on above: Performed By: #### L 100.0100, L100.9950, L503.6550, L503.0105, L503.6030 ####[facility] [id number] [place], [address] IRON SATURATION 22.8 Normal 15.0-55.0 [facility] Comment on above: Performed By: #### L 100.0100, L100.9950, L503.6550, L503.0105, L503.6030 ####[facility] [address] [place], [address] TIBC 281 ug/dL Normal 250-450 [facility] Comment on above: Performed By: #### L 100.0100, L100.9950, L503.6550, L503.0105, L503.6030 ####[facility] [address] [place], [address] L501.4020on 04-24-2024 TROPONIN-I HS 106 pg/mL High 3.0-78.0 [facility] Comment on above: Order Comment: 'TROP ' Serial specimen #1, #2 or #3: 1 Result Comment: Kodi monterroso Note: New Test Units and Gender Specific Reference Ranges. For more information see Policy Stat Procedure [place] High Sensitivity Troponin (TNIH) and attachments. Performed By: #### L 501.4020 ####[facility] [address] [place], [address] TROPONIN-I HS 190 pg/mL Invalid Interpretation Code 3.0-78.0 [facility] Comment on above: Order Comment: 'TROP ' Serial specimen #1, #2 or #3: 1 Result Comment: Crit ical Result(s) Called at: 16:51:09 04/24/2024 by: SHERYL. Results read back by Rashawn RAMIREZ Please Note: New Test Units and Gender Specific Reference Ranges. For more information see Policy Stat Procedure [place] High Sensitivity Troponin (TNIH) and attachments. Performed By: #### L 500.2500, L300.3900, L300.4310, L100.0100, L501.4020 ####[facility] [address] [place], [address] MCV (mean corpuscular volume ) determinationOrdered By: Radha Khan on 04-24-2024 MCV (RBC) [Entitic vol] 77.6 fL Low 80-94 [facility] Magnesiumon 04-24-2024 Magnesium [Mass/Vol] 2.1 mg/dL Normal 1.6-2.6 [facility] Comment on above: Order Comment: Comme nts: may add to ED labs Performed By: #### L 501.5200 ####[facility] [address] [place], [address] Magnesium measurementOrdered By: Cookie Bell on 04-24-2024 Magnesium [Mass/Vol] 2.1 mg/dL 1.6-2.6 [facility] Mean corpuscular hemoglobin (MCH) determinationOrdered By: Radha Khan on 04-24-2024 MCH (RBC) [Entitic mass] 21.2 pg Low 27.0-32.0 [facility] Monocyte percentageOrdered B y: Radha Khan on 04-24-2024 Monocytes/100 WBC (Bld) 10.2 % High 0-10 [facility] Neutrophil percentageOrdered By: Radha Khan on 04-24-2024 Neutrophils/100 WBC (Bld) 71.7 % High 47-70 [facility] No Panel InformationOrdered By: Daniel Mcneil on 04-24-2024 1+ [facility] No Panel InformationOrdered By: Radha Khan on 04-24-2024 1+ [facility] Ovalocyte detectionOrdered B y: Daniel Mcneil on 04-24-2024 Ovalocytes LM Ql (Bld) 1+ [facility] Ovalocyte detectionOrdered B y: Radha Khan on 04-24-2024 Ovalocytes LM Ql (Bld) 1+ [facility] Partial Thromboplast Timeon 04-24-2024 aPTT Coag (Bld) [Time] 24.8 s Normal 24.1-36.2 [facility] Comment on above: Performed By: #### L 500.2500, L300.3900, L300.4310, L100.0100, L501.4020 ####[facility] [address] [place], [address] Platelet countOrdered By: Armen Khan on 04-24-2024 Platelets (Bld) [#/Vol] 361 10*3/uL 150-450 [facility] Platelet estimateOrdered By: Daniel Mcneil on 04-24-2024 Platelets LM Ql (Bld) ADEQUATE ADEQ [facility] Platelet estimateOrdered By: Radha Khan on 04-24-2024 Platelets LM Ql (Bld) ADEQUATE ADEQ [facility] Prothrombin Time w/INRon INR Coag (PPP) [Relative time] 1.1 {INR} Normal [facility] Comment on above: Performed By: #### L 500.2500, L300.3900, L300.4310, L100.0100, L501.4020 ####[facility] [address] [place], [address] PT Coag (PPP) [Time] 14.4 s Normal 11.7-14.9 [facility] Comment on above: Performed By: #### L 500.2500, L300.3900, L300.4310, L100.0100, L501.4020 ####[facility] [address] [place], [address] Prothrombin timeOrdered By: Daniel Mcneil on 04-24-2024 PT Coag (PPP) [Time] 14.4 s 11.7-14.9 [facility] RBC Auto (Bld) [#/Vol]Ordere d By: Radha Khan on 04-24-2024 RBC (Bld) [#/Vol] 4.25 10*6/uL Low 4.6-6.2 [facility] Retic Panelon 04-24-2024 IM RET FRACTION 18.00 High 3.00-15.90 [facility] Comment on above: Performed By: #### L 100.0100, L100.9950, L503.6550, L503.0105, L503.6030 ####[facility] [address] [place], [address] RET-HE 26.3 pg Low 30-35 [facility] Comment on above: Performed By: #### L 100.0100, L100.9950, L503.6550, L503.0105, L503.6030 ####[facility] [address] [place], [address] Retic Count 1.99 High 0.5-1.5 [facility] Comment on above: Performed By: #### L 100.0100, L100.9950, L503.6550, L503.0105, L503.6030 ####[facility] [address] [place], [address] Reticulocyte hemoglobin equi valent (RET-He) measurementOrdered By: Radha Khan on 04-24-2024 Hemoglobin (Reticulocytes) [Entitic mass] 26.3 pg Low 30-35 [facility] Reticulocytes Auto (Bld) [#/ Vol]Ordered By: Radha Khan on 04-24-2024 Reticulocytes/100 RBC (Bld) 1.99 % High 0.5-1.5 [facility] STROKE Brain/Head without Co nton 04-24-2024 STROKE Brain/Head without Cont Normal [facility] STROKE CTA Head AND Neck W/C onon 04-24-2024 STROKE CTA Head AND Neck W/Con Normal [facility] Serum or plasma iron saturat ion measurement (mass fraction)Ordered By: Radha Khan on 04-24-2024 Iron saturation [Mass fraction] 22.8 % 15.0-55.0 [facility] Vitamin B12 measurementOrder ed By: Radha Khan on 04-24-2024 Cobalamin (Vitamin B12) [Mass/Vol] 572 pg/mL 211-911 [facility] White blood cell (WBC) count Ordered By: Radha Khan on 04-24-2024 WBC (Bld) [#/Vol] 14.1 10*3/uL High 4.4-11.0 [facility] 36on 04-22-2024 36 LVM to let patient k now he is scheduled for surgery and to call back to go over presurgical instructions Normal [facility] 36 Call ref# [id number]. No Prior authorization needed for inpatient 24 hour observation. Normal [facility] Pulmonary Visit Reporton Pulmonary Visit Report Normal [facility] Culture, Blood (WB)on 2024 CUB Blood cultures x2, f rom two different sites No growth in 5 days. Normal [facility] Comment on above: Performed By: #### M 200.1000, M100.636 ####[facility] [address] [place], [address] Endocrinology Visit Reporton 04-16-2024 Endocrinology Visit Report Normal [facility] No Panel Informationon 04-16 7.7 % High 4.2-6.3 [facility] Absolute lymphocyte countOrd ered By: Cuco Soler on 04-15-2024 Lymphocytes Auto (Unsp spec) [#/Vol] 0.77 10*3/uL Low 0.83-4.51 [facility] Automated lymphocyte count a s percentage of total leukocytesOrdered By: Cuco Soler on 04-15-2024 Lymphocytes/100 WBC Auto (Unsp spec) 7.0 % Low 19-41 [facility] Basic Metabolic Profile (BMP )on 04-15-2024 BUN/CRE 29.8 RATIO High 10-20 [facility] Comment on above: Performed By: #### L 100.0100, L500.2500 ####[facility] [address] [place], [address] CA,Total 9.4 mg/dL Normal 8.5-10.1 [facility] Comment on above: Performed By: #### L 100.0100, L500.2500 ####[facility] [address] [place], [address] Chloride [Moles/Vol] 103 mmol/L Normal 98-107 [facility] Comment on above: Performed By: #### L 100.0100, L500.2500 ####[facility] [address] [place], [address] CO2 [Moles/Vol] 24.0 mmol/L Normal 21.0-32.0 [facility] Comment on above: Performed By: #### L 100.0100, L500.2500 ####[facility] [address] [place], [address] Creatinine [Mass/Vol] 1.14 mg/dL Normal 0.70-1.30 [facility] Comment on above: Result Comment: The validity of the calculated GFR GFRAA in patients over70 years has not been determined. Clinical correlation isessential. Performed By: #### L 100.0100, L500.2500 ####[facility] [address] [place], [address] ECRCL 94.72 ml/min Normal [facility] Comment on above: Performed By: #### L 100.0100, L500.2500 ####[facility] [address] [place], [address] EST GFR - AA 84 mL/min Normal >60 [facility] Comment on above: Result Comment: Afri can [place] GFR Calc Performed By: #### L 100.0100, L500.2500 ####[facility] [address] [place], [address] GAP 8 Normal 5-15 [facility] Comment on above: Performed By: #### L 100.0100, L500.2500 ####[facility] [address] [place], [address] GFR/1.73 sq M.predicted among non-blacks MDRD (S/P/Bld) [Vol rate/Area] 70 mL/min/{1.73_m2} Normal >60 [facility] Comment on above: Result Comment: Non- GFR Calc Performed By: #### L 100.0100, L500.2500 ####[facility] [address] [place], [address] Glucose [Mass/Vol] 154 mg/dL High 74-106 [facility] Comment on above: Result Comment: Fast ing Glucose result greater than or equal to 126 mg/dLsuggests DIABETES MELLITUS per A.D.A. criteria. Performed By: #### L 100.0100, L500.2500 ####[facility] [address] [place], [address] Potassium [Moles/Vol] 4.4 mmol/L Normal 3.5-5.1 [facility] Comment on above: Performed By: #### L 100.0100, L500.2500 ####[facility] [address] [place], [address] Sodium [Moles/Vol] 135 mmol/L Low 136-145 [facility] Comment on above: Performed By: #### L 100.0100, L500.2500 ####[facility] [address] [place], [address] Urea nitrogen [Mass/Vol] 34 mg/dL High 7-18 [facility] Comment on above: Performed By: #### L 100.0100, L500.2500 ####[facility] [address] [place], [address] Basophil percentageOrdered B y: Cucogemini Soler on 04-15-2024 Basophils/100 WBC (Bld) 0.1 % 0-1 [facility] CBC W/Diff, Automatedon 04-01 Absolute Lymph 0.77 X10 3/uL Low 0.83-4.51 [facility] Comment on above: Performed By: #### L 100.0100, L500.2500 ####[facility] [address] [place], [address] Absolute Neut 9.9 X10 3/uL High 2.0-7.7 [facility] Comment on above: Performed By: #### L 100.0100, L500.2500 ####[facility] [address] [place], [address] Basophils/100 WBC (Bld) 0.1 % Normal 0-1 [facility] Comment on above: Performed By: #### L 100.0100, L500.2500 ####[facility] [address] [place], [address] Eosinophils/100 WBC (Bld) 0.1 % Normal 0-5 [facility] Comment on above: Performed By: #### L 100.0100, L500.2500 ####[facility] [address] [place], [address] Erythrocyte distribution width (RBC) [Ratio] 19.6 % High 11.6-14.6 [facility] Comment on above: Performed By: #### L 100.0100, L500.2500 ####[facility] [address] [place], [address] Hematocrit (Bld) [Volume fraction] 28.9 % Low 40-54 [facility] Comment on above: Performed By: #### L 100.0100, L500.2500 ####[facility] [address] [place], [address] Hemoglobin (Bld) [Mass/Vol] 8.5 g/dL Low 13.0-16.5 [facility] Comment on above: Performed By: #### L 100.0100, L500.2500 ####[facility] [address] [place], [address] IG% 0.600 Normal 0.0-0.9 [facility] Comment on above: Result Comment: IG% - Immature Granulocytes (promyelocytes, myelocytes andmetamyelocytes) > 1% indicates that a LEFT SHIFT is Present. Performed By: #### L 100.0100, L500.2500 ####[facility] [address] [place], [address] Lymphocytes/100 WBC (Bld) 7.0 % Low 19-41 [facility] Comment on above: Performed By: #### L 100.0100, L500.2500 ####[facility] [address] [place], [address] MCH (RBC) [Entitic mass] 21.8 pg Low 27.0-32.0 [facility] Comment on above: Performed By: #### L 100.0100, L500.2500 ####[facility] [address] [place], [address] MCHC (RBC) [Mass/Vol] 29.4 g/dL Low 32-36 [facility] Comment on above: Performed By: #### L 100.0100, L500.2500 ####[facility] [address] [place], [address] MCV (RBC) [Entitic vol] 74.1 fL Low 80-94 [facility] Comment on above: Performed By: #### L 100.0100, L500.2500 ####[facility] [address] [place], [address] Monocytes/100 WBC (Bld) 2.4 % Normal 0-10 [facility] Comment on above: Performed By: #### L 100.0100, L500.2500 ####[facility] [address] [place], [address] Neutrophils/100 WBC (Bld) 89.8 % High 47-70 [facility] Comment on above: Performed By: #### L 100.0100, L500.2500 ####[facility] [address] [place], [address] Nucleated RBC (Bld) [#/Vol] 0 10*3/uL Normal 0-5 [facility] Comment on above: Performed By: #### L 100.0100, L500.2500 ####[facility] [address] [place], [address] Platelet mean volume (Bld) [Entitic vol] 9.8 fL Normal 6.2-12.0 [facility] Comment on above: Performed By: #### L 100.0100, L500.2500 ####[facility] [address] [place], [address] Platelets (Bld) [#/Vol] 341 10*3/uL Normal 150-450 [facility] Comment on above: Performed By: #### L 100.0100, L500.2500 ####[facility] [address] [place], [address] RBC (Bld) [#/Vol] 3.90 10*6/uL Low 4.6-6.2 [facility] Comment on above: Performed By: #### L 100.0100, L500.2500 ####[facility] [address] [place], [address] RDW SD 52.3 fl High 35.1-43.9 [facility] Comment on above: Performed By: #### L 100.0100, L500.2500 ####[facility] [address] [place], [address] WBC (Bld) [#/Vol] 11.0 10*3/uL Normal 4.4-11.0 [facility] Comment on above: Performed By: #### L 100.0100, L500.2500 ####[facility] [address] [place], [address] Carbon dioxide measurementOr dered By: Cuco Soler on 04-15-2024 CO2 [Moles/Vol] 24.0 mmol/L 21.0-32.0 [facility] Chloride measurementOrdered By: Cuco Soler on 04-15-2024 Chloride [Moles/Vol] 103 mmol/L 98-107 [facility] Discharge Instructionon 04-01 Discharge Instruction Normal [facility] Eosinophil percentageOrdered By: Cuco Soler on 04-15-2024 Eosinophils/100 WBC (Bld) 0.1 % 0-5 [facility] Erythrocyte distribution wid th ratioOrdered By: Cuco Soler on 04-15-2024 Erythrocyte distribution width (RBC) [Ratio] 19.6 % High 11.6-14.6 [facility] Erythrocyte distribution wid th standard deviationOrdered By: Cuco Soler on 04-15-2024 Erythrocyte distribution width (RBC) [Ratio] 52.3 fl High 35.1-43.9 [facility] Glomerular filtration rate ( GFR) estimationOrdered By: Cuco Soler on 04-15-2024 GFR/1.73 sq M.predicted among non-blacks MDRD (S/P/Bld) [Vol rate/Area] 70 mL/min/{1.73_m2} >60 [facility] Glucose measurementOrdered B y: Cuco oSler on 04-15-2024 Glucose [Mass/Vol] 154 mg/dL High 74-106 [facility] Hematocrit Auto (Bld) [Volum e fraction]Ordered By: Cuco Soler on 04-15-2024 Hematocrit (Bld) [Volume fraction] 28.9 % Low 40-54 [facility] Hemoglobin measurementOrdere d By: Cuco Soler on 04-15-2024 Hemoglobin (Bld) [Mass/Vol] 8.5 g/dL Low 13.0-16.5 [facility] Immature granulocytes/100 WB C Auto (Bld)Ordered By: Cuco Soler on 04-15-2024 Immature granulocytes/100 WBC (Bld) 0.600 % 0.0-0.9 [facility] MCV (mean corpuscular volume ) determinationOrdered By: Cuco Soler on 04-15-2024 MCV (RBC) [Entitic vol] 74.1 fL Low 80-94 [facility] Mean corpuscular hemoglobin (MCH) determinationOrdered By: Cuco Soler on 04-15-2024 MCH (RBC) [Entitic mass] 21.8 pg Low 27.0-32.0 [facility] Monocyte percentageOrdered B y: Cuco Soler on 04-15-2024 Monocytes/100 WBC (Bld) 2.4 % 0-10 [facility] Neutrophil percentageOrdered By: Cuco Soler on 04-15-2024 Neutrophils/100 WBC (Bld) 89.8 % High 47-70 [facility] Platelet countOrdered By: Droian Soler on 01-15-2025 Platelets (Bld) [#/Vol] 341 10*3/uL 150-450 [facility] Potassium measurementOrdered By: Cuco Soler on 04-15-2024 Potassium [Moles/Vol] 4.4 mmol/L 3.5-5.1 [facility] RBC Auto (Bld) [#/Vol]Ordere d By: Cuco Soler on 04-15-2024 RBC (Bld) [#/Vol] 3.90 10*6/uL Low 4.6-6.2 [facility] Serum or plasma calcium grazyna urement (mass/volume)Ordered By: Cuco Soler on 04-15-2024 Calcium [Mass/Vol] 9.4 mg/dL 8.5-10.1 [facility] Serum or plasma creatinine m easurement (mass/volume)Ordered By: Cuco Soler on 04-15-2024 Creatinine [Mass/Vol] 1.14 mg/dL 0.70-1.30 [facility] Serum or plasma urea nitroge n measurement (mass/volume)Ordered By: Cuco Soler on 04-15-2024 Urea nitrogen [Mass/Vol] 34 mg/dL High 7-18 [facility] Sodium levelOrdered By: Caitie Soler on 04-15-2024 Sodium [Moles/Vol] 135 mmol/L Low 136-145 [facility] White blood cell (WBC) count Ordered By: Cuco Sloer on 04-15-2024 WBC (Bld) [#/Vol] 11.0 10*3/uL 4.4-11.0 [facility] BC GPC IDon 04-14-2024 GPC ID Normal [facility] Comment on above: Performed By: #### M 200.1000, M100.636 ####[facility] [address] [place], [place], [id number] Basic Metabolic Profile (BMP )on 04-14-2024 BUN/CRE 20.1 RATIO High 10-20 [facility] Comment on above: Performed By: #### L 501.5200, L100.0100, L500.2500, L500.3400, L501.2300 ####[facility] [address] [place], [address] CA,Total 9.0 mg/dL Normal 8.5-10.1 [facility] Comment on above: Performed By: #### L 501.5200, L100.0100, L500.2500, L500.3400, L501.2300 ####[facility] [address] [place], [address] Chloride [Moles/Vol] 100 mmol/L Normal 98-107 [facility] Comment on above: Performed By: #### L 501.5200, L100.0100, L500.2500, L500.3400, L501.2300 ####[facility] [address] [place], [address] CO2 [Moles/Vol] 26.0 mmol/L Normal 21.0-32.0 [facility] Comment on above: Performed By: #### L 501.5200, L100.0100, L500.2500, L500.3400, L501.2300 ####[facility] [address] [place], [address] Creatinine [Mass/Vol] 1.49 mg/dL High 0.70-1.30 [facility] Comment on above: Result Comment: The validity of the calculated GFR GFRAA in patients over70 years has not been determined. Clinical correlation isessential. Performed By: #### L 501.5200, L100.0100, L500.2500, L500.3400, L501.2300 ####[facility] [address] [place], [address] ECRCL 73.51 ml/min Normal [facility] Comment on above: Performed By: #### L 501.5200, L100.0100, L500.2500, L500.3400, L501.2300 ####[facility] [address] [place], [address] EST GFR - AA 62 mL/min Normal >60 [facility] Comment on above: Result Comment: Afri can [place] GFR Calc Performed By: #### L 501.5200, L100.0100, L500.2500, L500.3400, L501.2300 ####[facility] [address] [place], [address] GAP 6 Normal 5-15 [facility] Comment on above: Performed By: #### L 501.5200, L100.0100, L500.2500, L500.3400, L501.2300 ####[facility] [address] [place], [address] GFR/1.73 sq M.predicted among non-blacks MDRD (S/P/Bld) [Vol rate/Area] 51 mL/min/{1.73_m2} Low >60 [facility] Comment on above: Result Comment: Non- GFR Calc Performed By: #### L 501.5200, L100.0100, L500.2500, L500.3400, L501.2300 ####[facility] [address] [place], [address] Glucose [Mass/Vol] 272 mg/dL High 74-106 [facility] Comment on above: Result Comment: Gluc ose result greater than or equal to 200 mg/dLsuggests DIABETES MELLITUS per A.D.A. criteria. Performed By: #### L 501.5200, L100.0100, L500.2500, L500.3400, L501.2300 ####[facility] [address] [place], [address] Potassium [Moles/Vol] 4.0 mmol/L Normal 3.5-5.1 [facility] Comment on above: Performed By: #### L 501.5200, L100.0100, L500.2500, L500.3400, L501.2300 ####[facility] [address] [place], [address] Sodium [Moles/Vol] 132 mmol/L Low 136-145 [facility] Comment on above: Performed By: #### L 501.5200, L100.0100, L500.2500, L500.3400, L501.2300 ####[facility] [address] [place], [address] Urea nitrogen [Mass/Vol] 30 mg/dL High 7-18 [facility] Comment on above: Performed By: #### L 501.5200, L100.0100, L500.2500, L500.3400, L501.2300 ####[facility] [address] [place], [address] Bedside Glucoseon 04-14-2024 FINGERSTICK GLU 259 mg/dL High 74-106 [facility] Comment on above: Result Comment: ANI BRADFORD OF PATIENT CARE PER NURSING PROTOCOL Performed By: #### L 501.080 ####[facility] [address] [place], [address] Bilirubin directOrdered By: Cuco Soler on 04-14-2024 Bilirubin.direct [Mass/Vol] 0.20 mg/dL 0.00-0.30 [facility] Bilirubin, totalOrdered By: Cuco Soler on 04-14-2024 Bilirubin [Mass/Vol] 0.80 mg/dL 0.20-1.00 [facility] CBC W/Diff, Automatedon 04-01 Absolute Lymph 0.42 X10 3/uL Low 0.83-4.51 [facility] Comment on above: Performed By: #### L 501.5200, L100.0100, L500.2500, L500.3400, L501.2300 ####[facility] [address] [place], [address] Absolute Neut 7.9 X10 3/uL High 2.0-7.7 [facility] Comment on above: Performed By: #### L 501.5200, L100.0100, L500.2500, L500.3400, L501.2300 ####[facility] [address] [place], [address] Basophils/100 WBC (Bld) 0.2 % Normal 0-1 [facility] Comment on above: Performed By: #### L 501.5200, L100.0100, L500.2500, L500.3400, L501.2300 ####[facility] [address] [place], [address] Eosinophils/100 WBC (Bld) 0.0 % Normal 0-5 [facility] Comment on above: Performed By: #### L 501.5200, L100.0100, L500.2500, L500.3400, L501.2300 ####[facility] [address] [place], [address] Erythrocyte distribution width (RBC) [Ratio] 19.9 % High 11.6-14.6 [facility] Comment on above: Performed By: #### L 501.5200, L100.0100, L500.2500, L500.3400, L501.2300 ####[facility] [address] [place], [address] Hematocrit (Bld) [Volume fraction] 28.7 % Low 40-54 [facility] Comment on above: Performed By: #### L 501.5200, L100.0100, L500.2500, L500.3400, L501.2300 ####[facility] [address] [place], [address] Hemoglobin (Bld) [Mass/Vol] 8.4 g/dL Low 13.0-16.5 [facility] Comment on above: Performed By: #### L 501.5200, L100.0100, L500.2500, L500.3400, L501.2300 ####[facility] [address] [place], [address] IG% 0.500 Normal 0.0-0.9 [facility] Comment on above: Result Comment: IG% - Immature Granulocytes (promyelocytes, myelocytes andmetamyelocytes) > 1% indicates that a LEFT SHIFT is Present. Performed By: #### L 501.5200, L100.0100, L500.2500, L500.3400, L501.2300 ####[facility] [address] [place], [address] Lymphocytes/100 WBC (Bld) 4.9 % Low 19-41 [facility] Comment on above: Performed By: #### L 501.5200, L100.0100, L500.2500, L500.3400, L501.2300 ####[facility] [address] [place], [address] MCH (RBC) [Entitic mass] 21.8 pg Low 27.0-32.0 [facility] Comment on above: Performed By: #### L 501.5200, L100.0100, L500.2500, L500.3400, L501.2300 ####[facility] [place] [address] [place], [address] MCHC (RBC) [Mass/Vol] 29.3 g/dL Low 32-36 [facility] Comment on above: Performed By: #### L 501.5200, L100.0100, L500.2500, L500.3400, L501.2300 ####[facility] [address] [place], [address] MCV (RBC) [Entitic vol] 74.4 fL Low 80-94 [facility] Comment on above: Performed By: #### L 501.5200, L100.0100, L500.2500, L500.3400, L501.2300 ####[facility] [address] [place], [address] Monocytes/100 WBC (Bld) 1.9 % Normal 0-10 [facility] Comment on above: Performed By: #### L 501.5200, L100.0100, L500.2500, L500.3400, L501.2300 ####[facility] [address] [place], [address] Neutrophils/100 WBC (Bld) 92.5 % High 47-70 [facility] Comment on above: Performed By: #### L 501.5200, L100.0100, L500.2500, L500.3400, L501.2300 ####[facility] [address] [place], [address] Nucleated RBC (Bld) [#/Vol] 0.2 10*3/uL Normal 0-5 [facility] Comment on above: Performed By: #### L 501.5200, L100.0100, L500.2500, L500.3400, L501.2300 ####[facility] [address] [place], [address] Platelet mean volume (Bld) [Entitic vol] 10.0 fL Normal 6.2-12.0 [facility] Comment on above: Performed By: #### L 501.5200, L100.0100, L500.2500, L500.3400, L501.2300 ####[facility] [address] [place], [address] Platelets (Bld) [#/Vol] 322 10*3/uL Normal 150-450 [facility] Comment on above: Performed By: #### L 501.5200, L100.0100, L500.2500, L500.3400, L501.2300 ####[facility] [address] [place], [address] RBC (Bld) [#/Vol] 3.86 10*6/uL Low 4.6-6.2 [facility] Comment on above: Performed By: #### L 501.5200, L100.0100, L500.2500, L500.3400, L501.2300 ####[facility] [address] [place], [address] RDW SD 53.1 fl High 35.1-43.9 [facility] Comment on above: Performed By: #### L 501.5200, L100.0100, L500.2500, L500.3400, L501.2300 ####[facility] [address] [place], [address] WBC (Bld) [#/Vol] 8.6 10*3/uL Normal 4.4-11.0 [facility] Comment on above: Performed By: #### L 501.5200, L100.0100, L500.2500, L500.3400, L501.2300 ####[facility] [address] 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, [address] ALK P 77 U/L Normal 45-117 [facility] Comment on above: Performed By: #### L 501.5200, L100.0100, L500.2500, L500.3400, L501.2300 ####[facility] [address] [place], [address] ALT [Catalytic activity/Vol] 19 U/L Normal 16-61 [facility] Comment on above: Performed By: #### L 501.5200, L100.0100, L500.2500, L500.3400, L501.2300 ####[facility] [address] [place], [address] AST [Catalytic activity/Vol] 16 U/L Normal 15-37 [facility] Comment on above: Performed By: #### L 501.5200, L100.0100, L500.2500, L500.3400, L501.2300 ####[facility] [address] [place], [address] Bilirubin [Mass/Vol] 0.80 mg/dL Normal 0.20-1.00 [facility] Comment on above: Result Comment: For patients on eltrombopag therapy, use of Dimension [place] TBIL is not recommended. Performed By: #### L 501.5200, L100.0100, L500.2500, L500.3400, L501.2300 ####[facility] [address] [place], [address] Bilirubin.direct [Mass/Vol] 0.20 mg/dL Normal 0.00-0.30 [facility] Comment on above: Performed By: #### L 501.5200, L100.0100, L500.2500, L500.3400, L501.2300 ####[facility] [address] [place], [address] Globulin (S) [Mass/Vol] 5.6 g/dL High 2.2-4.2 [facility] Comment on above: Performed By: #### L 501.5200, L100.0100, L500.2500, L500.3400, L501.2300 ####[facility] [address] [place], [address] T PROT 8.3 g/dL High 6.4-8.2 [facility] Comment on above: Performed By: #### L 501.5200, L100.0100, L500.2500, L500.3400, L501.2300 ####[facility] [address] [place], [address] M8200.1000on 04-14-2024 M8200.1000 Normal Reference Ran ge = Negative MRSA DNA Nose Ql FLORES+probe GeneXpert Instrument, PCR method MRSA PCR MRSA NEGATIVE Normal [facility] Comment on above: Performed By: #### M 8200.1000, M300.4600 ####[facility] [address] [place], [address] Magnesiumon 04-14-2024 Magnesium [Mass/Vol] 2.5 mg/dL Normal 1.6-2.6 [facility] Comment on above: Performed By: #### L 501.5200, L100.0100, L500.2500, L500.3400, L501.2300 ####[facility] [address] [place], [address] Magnesium measurementOrdered By: Cuco Soler on 04-14-2024 Magnesium [Mass/Vol] 2.5 mg/dL 1.6-2.6 [facility] Nasal methicillin resistant Staphylococcus aureus (MRSA) DNA detection by PCROrdered By: Cuco Soler on 04-14-2024 MRSA DNA FLORES+probe Ql (Nose) [facility] No Panel InformationOrdered By: Cuco Soler on 04-14-2024 16 U/L 15-37 [facility] Phosphoruson 04-14-2024 Phosphate [Mass/Vol] 4.4 mg/dL Normal 2.5-4.9 [facility] Comment on above: Performed By: #### L 501.5200, L100.0100, L500.2500, L500.3400, L501.2300 ####[facility] [address] [place], [place], [address] Procalcitoninon 04-14-2024 Procalcitonin 0.18 ng/mL High 0.00-0.09 [facility] Comment on above: Result Comment: A pr [...] are obtained. Performed By: #### L 509.7000 ####[facility] [address] [facility] [place], [place], [address] Serum globulin measurementOr dered By: Cuco Soler on 04-14-2024 Globulin (S) [Mass/Vol] 5.6 g/dL High 2.2-4.2 [facility] Serum or plasma alanine briscoe otransferase (ALT) measurementOrdered By: Cuco Soler on 04-14-2024 ALT [Catalytic activity/Vol] 19 U/L 16-61 [facility] Serum or plasma albumin grazyna urement (mass/volume)Ordered By: Cuco Soler on 04-14-2024 Albumin [Mass/Vol] 2.7 g/dL Low 3.2-5.0 [facility] Serum or plasma alkaline benjamin sphatase measurementOrdered By: Cuco Soler on 04-14-2024 ALP [Catalytic activity/Vol] 77 U/L 45-117 [facility] Serum procalcitonin measurem entOrdered By: Fran Rodriguez on 04-14-2024 Procalcitonin [Mass/Vol] 0.18 ng/mL High 0.00-0.09 [facility] Strep pneumoniae Antig(UR,CS F)on 04-14-2024 STPAG Normal [facility] Comment on above: Performed By: #### M 8200.1000, M300.4600 ####[facility] [address] [place], [address] Total proteinOrdered By: Wilder Soler on 04-14-2024 Protein [Mass/Vol] 8.3 g/dL High 6.4-8.2 [facility] 6 Minute Walk Teston 025 6 Minute Walk Test Normal [facility] Basic Metabolic Profile (BMP )on 04-13-2024 BUN/CRE 17.1 RATIO Normal 10-20 [facility] Comment on above: Performed By: #### L 501.5200, L500.2500, L501.2300, L100.0100 ####[facility] [address] [place], [address] CA,Total 8.9 mg/dL Normal 8.5-10.1 [facility] Comment on above: Performed By: #### L 501.5200, L500.2500, L501.2300, L100.0100 ####[facility] [address] [place], [address] Chloride [Moles/Vol] 101 mmol/L Normal 98-107 [facility] Comment on above: Performed By: #### L 501.5200, L500.2500, L501.2300, L100.0100 ####[facility] [address] [place], [address] CO2 [Moles/Vol] 27.0 mmol/L Normal 21.0-32.0 [facility] Comment on above: Performed By: #### L 501.5200, L500.2500, L501.2300, L100.0100 ####[facility] [address] [place], [address] Creatinine [Mass/Vol] 1.17 mg/dL Normal 0.70-1.30 [facility] Comment on above: Result Comment: The validity of the calculated GFR GFRAA in patients over70 years has not been determined. Clinical correlation isessential. Performed By: #### L 501.5200, L500.2500, L501.2300, L100.0100 ####[facility] [address] [place], [address] ECRCL 93.62 ml/min Normal [facility] Comment on above: Performed By: #### L 501.5200, L500.2500, L501.2300, L100.0100 ####[facility] [address] [place], [address] EST GFR - AA 82 mL/min Normal >60 [facility] Comment on above: Result Comment: Afri can Australian GFR Calc Performed By: #### L 501.5200, L500.2500, L501.2300, L100.0100 ####[facility] [address] [place], [address] GAP 6 Normal 5-15 [facility] Comment on above: Performed By: #### L 501.5200, L500.2500, L501.2300, L100.0100 ####[facility] [address] [place], [address] GFR/1.73 sq M.predicted among non-blacks MDRD (S/P/Bld) [Vol rate/Area] 67 mL/min/{1.73_m2} Normal >60 [facility] Comment on above: Result Comment: Non- GFR Calc Performed By: #### L 501.5200, L500.2500, L501.2300, L100.0100 ####[facility] [address] [place], [address] Glucose [Mass/Vol] 193 mg/dL High 74-106 [facility] Comment on above: Result Comment: Fast ing Glucose result greater than or equal to 126 mg/dLsuggests DIABETES MELLITUS per A.D.A. criteria. Performed By: #### L 501.5200, L500.2500, L501.2300, L100.0100 ####[facility] [address] [place], [address] Potassium [Moles/Vol] 3.6 mmol/L Normal 3.5-5.1 [facility] Comment on above: Performed By: #### L 501.5200, L500.2500, L501.2300, L100.0100 ####[facility] [address] [place], [address] Sodium [Moles/Vol] 134 mmol/L Low 136-145 [facility] Comment on above: Performed By: #### L 501.5200, L500.2500, L501.2300, L100.0100 ####[facility] [address] [place], [address] Urea nitrogen [Mass/Vol] 20 mg/dL High 7-18 [facility] Comment on above: Performed By: #### L 501.5200, L500.2500, L501.2300, L100.0100 ####[facility] [address] [place], [address] Bedside Glucoseon 04-13-2024 FINGERSTICK GLU 190 mg/dL High 74-106 [facility] Comment on above: Result Comment: ANI SUZETTE OF PATIENT CARE PER NURSING PROTOCOL Performed By: #### L 501.080 ####[facility] [address] [place], [address] CBC W/Diff, Automatedon 04-01 Absolute Lymph 1.53 X10 3/uL Normal 0.83-4.51 [facility] Comment on above: Performed By: #### L 501.5200, L500.2500, L501.2300, L100.0100 ####[facility] [address] [place], [address] Absolute Neut 7.3 X10 3/uL Normal 2.0-7.7 [facility] Comment on above: Performed By: #### L 501.5200, L500.2500, L501.2300, L100.0100 ####[facility] [address] [place], [address] Basophils/100 WBC (Bld) 0.5 % Normal 0-1 [facility] Comment on above: Performed By: #### L 501.5200, L500.2500, L501.2300, L100.0100 ####[facility] [address] [place], [address] Eosinophils/100 WBC (Bld) 3.7 % Normal 0-5 [facility] Comment on above: Performed By: #### L 501.5200, L500.2500, L501.2300, L100.0100 ####[facility] [address] [place], [address] Erythrocyte distribution width (RBC) [Ratio] 19.9 % High 11.6-14.6 [facility] Comment on above: Performed By: #### L 501.5200, L500.2500, L501.2300, L100.0100 ####[facility] [address] [place], [address] Hematocrit (Bld) [Volume fraction] 26.7 % Low 40-54 [facility] Comment on above: Performed By: #### L 501.5200, L500.2500, L501.2300, L100.0100 ####[facility] [address] [place], [address] Hemoglobin (Bld) [Mass/Vol] 7.7 g/dL Low 13.0-16.5 [facility] Comment on above: Performed By: #### L 501.5200, L500.2500, L501.2300, L100.0100 ####[facility] [address] [place], [address] IG% 0.300 Normal 0.0-0.9 [facility] Comment on above: Result Comment: IG% - Immature Granulocytes (promyelocytes, myelocytes andmetamyelocytes) > 1% indicates that a LEFT SHIFT is Present. Performed By: #### L 501.5200, L500.2500, L501.2300, L100.0100 ####[facility] [address] [place], [address] Lymphocytes/100 WBC (Bld) 14.9 % Low 19-41 [facility] Comment on above: Performed By: #### L 501.5200, L500.2500, L501.2300, L100.0100 ####[facility] [address] [place], [address] MCH (RBC) [Entitic mass] 21.6 pg Low 27.0-32.0 [facility] Comment on above: Performed By: #### L 501.5200, L500.2500, L501.2300, L100.0100 ####[facility] [address] [place], [address] MCHC (RBC) [Mass/Vol] 28.8 g/dL Low 32-36 [facility] Comment on above: Performed By: #### L 501.5200, L500.2500, L501.2300, L100.0100 ####[facility] [address] [place], [address] MCV (RBC) [Entitic vol] 74.8 fL Low 80-94 [facility] Comment on above: Performed By: #### L 501.5200, L500.2500, L501.2300, L100.0100 ####[facility] [address] [place], [address] Monocytes/100 WBC (Bld) 9.8 % Normal 0-10 [facility] Comment on above: Performed By: #### L 501.5200, L500.2500, L501.2300, L100.0100 ####[facility] [address] [place], [address] Neutrophils/100 WBC (Bld) 70.8 % High 47-70 [facility] Comment on above: Performed By: #### L 501.5200, L500.2500, L501.2300, L100.0100 ####[facility] [address] [place], [address] Nucleated RBC (Bld) [#/Vol] 0 10*3/uL Normal 0-5 [facility] Comment on above: Performed By: #### L 501.5200, L500.2500, L501.2300, L100.0100 ####[facility] [address] [place], [address] Platelet mean volume (Bld) [Entitic vol] 9.6 fL Normal 6.2-12.0 [facility] Comment on above: Performed By: #### L 501.5200, L500.2500, L501.2300, L100.0100 ####[facility] [address] [place], [address] Platelets (Bld) [#/Vol] 289 10*3/uL Normal 150-450 [facility] Comment on above: Performed By: #### L 501.5200, L500.2500, L501.2300, L100.0100 ####[facility] [address] [place], [address] RBC (Bld) [#/Vol] 3.57 10*6/uL Low 4.6-6.2 [facility] Comment on above: Performed By: #### L 501.5200, L500.2500, L501.2300, L100.0100 ####[facility] [address] [place], [address] RDW SD 53.8 fl High 35.1-43.9 [facility] Comment on above: Performed By: #### L 501.5200, L500.2500, L501.2300, L100.0100 ####[facility] [address] [place], [address] WBC (Bld) [#/Vol] 10.3 10*3/uL Normal 4.4-11.0 [facility] Comment on above: Performed By: #### L 501.5200, L500.2500, L501.2300, L100.0100 ####[facility] [address] [place], [address] Chest without Contraston Chest without Contrast Normal [facility] Legionella Antigen Urineon 0 04-13-2024 LEGU Normal [facility] Comment on above: Performed By: #### M 300.4500 ####[facility] [address] [place], [address] Magnesiumon 04-13-2024 Magnesium [Mass/Vol] 2.3 mg/dL Normal 1.6-2.6 [facility] Comment on above: Performed By: #### L 501.5200, L500.2500, L501.2300, L100.0100 ####[facility] [address] [place], [address] Phosphoruson 04-13-2024 Phosphate [Mass/Vol] 4.4 mg/dL Normal 2.5-4.9 [facility] Comment on above: Performed By: #### L 501.5200, L500.2500, L501.2300, L100.0100 ####[facility] [address] [place], [address] RESPIRATORY PANEL MOLECULARo n 04-13-2024 RP PANEL Normal [facility] Comment on above: Performed By: #### M 100.638 ####[facility] [address] [place], [address] Respiratory pathogens detect ion panel by molecular detection methodOrdered By: Cuco Soler on 04-13-2024 Respiratory pathogens DNA and RNA panel FLORES+probe (Resp) [facility] Urine Legionella pneumophila antigen detectionOrdered By: Cuco Soler on 04-13-2024 L. pneumophila Ag Ql (U) [facility] 12 Lead EKGon 04-12-2024 12 Lead EKG Normal [facility] BNP (brain natriuretic pepti de measurement)Ordered By: Luli Alex on 04-12-2024 Natriuretic peptide B (Bld) [Mass/Vol] 124.0 pg/mL High 0-100 [facility] BNP,B-Type NATRIURETIC PEPTI Sindy 04-12-2024 Natriuretic peptide B (Bld) [Mass/Vol] 124.0 pg/mL High 0-100 [facility] Comment on above: Performed By: #### L 500.2500, L503.6620, L100.0100 ####[facility] [address] [place], [address] Basic Metabolic Profile (BMP )on 04-12-2024 BUN/CRE 16.5 RATIO Normal 10-20 [facility] Comment on above: Order Comment: RED W. PREVIOUS SPECIMEN REJECTED DUE TOHEMOLYSIS. 04/12/24 1220 Luiz Sandoval.1 Performed By: #### L 500.2500, L501.4020 ####[facility] [address] [place], [address] CA,Total 9.4 mg/dL Normal 8.5-10.1 [facility] Comment on above: Order Comment: RED W. PREVIOUS SPECIMEN REJECTED DUE TOHEMOLYSIS. 04/12/24 1220 Luiz Sandoval.1 Performed By: #### L 500.2500, L501.4020 ####[facility] [address] [place], [address] Chloride [Moles/Vol] 105 mmol/L Normal 98-107 [facility] Comment on above: Order Comment: REDRA W. PREVIOUS SPECIMEN REJECTED DUE TOHEMOLYSIS. 04/12/241219 Luiz Sandoval.1 Performed By: #### L 500.2500, L501.4020 ####[facility] [address] [place], [address] CO2 [Moles/Vol] 26.0 mmol/L Normal 21.0-32.0 [facility] Comment on above: Order Comment: REDRA W. PREVIOUS SPECIMEN REJECTED DUE TOHEMOLYSIS. 04/12/241219 Luiz Sandoval.1 Performed By: #### L 500.2500, L501.4020 ####[facility] [address] [place], [address] Creatinine [Mass/Vol] 0.97 mg/dL Normal 0.70-1.30 [facility] Comment on above: Order Comment: REDRA W. PREVIOUS SPECIMEN REJECTED DUE TOHEMOLYSIS. 04/12/241219 Luiz Sandoval.1 Result Comment: The validity of the calculated GFR GFRAA in patients over70 years has not been determined. Clinical correlation isessential. Performed By: #### L 500.2500, L501.4020 ####[facility] [address] [place], [address] EST GFR - AA 101 mL/min Normal >60 [facility] Comment on above: Order Comment: REDRA W. PREVIOUS SPECIMEN REJECTED DUE TOHEMOLYSIS. 04/12/241219 Luiz Sandoval.1 Result Comment: Afri can Australian GFR Calc Performed By: #### L 500.2500, L501.4020 ####[facility] [address] [place], [address] GAP 3 Low 5-15 [facility] Comment on above: Order Comment: REDRA W. PREVIOUS SPECIMEN REJECTED DUE TOHEMOLYSIS. 04/12/24 1220 Luiz Sandoval.1 Performed By: #### L 500.2500, L501.4020 ####[facility] [address] [place], [address] GFR/1.73 sq M.predicted among non-blacks MDRD (S/P/Bld) [Vol rate/Area] 84 mL/min/{1.73_m2} Normal >60 [facility] Comment on above: Order Comment: REDRA W. PREVIOUS SPECIMEN REJECTED DUE TOHEMOLYSIS. 04/12/24 1220 Luiz Sandoval.1 Result Comment: Non- GFR Calc Performed By: #### L 500.2500, L501.4020 ####[facility] [address] [place], [address] Glucose [Mass/Vol] 124 mg/dL High 74-106 [facility] Comment on above: Order Comment: REDRA W. PREVIOUS SPECIMEN REJECTED DUE TOHEMOLYSIS. 04/12/24 1220 Luiz Sandoval.1 Result Comment: Fast ing Glucose result from 100 to 125 mg/dLsuggests IMPAIRED HOMEOSTASIS per A.D.A. criteria. Performed By: #### L 500.2500, L501.4020 ####[facility] [address] [place], [address] Potassium [Moles/Vol] 3.7 mmol/L Normal 3.5-5.1 [facility] Comment on above: Order Comment: REDRA W. PREVIOUS SPECIMEN REJECTED DUE TOHEMOLYSIS. 04/12/24 1220 Luiz Sandoval.1 Performed By: #### L 500.2500, L501.4020 ####[facility] [address] [place], [address] Sodium [Moles/Vol] 134 mmol/L Low 136-145 [facility] Comment on above: Order Comment: REDRA W. PREVIOUS SPECIMEN REJECTED DUE TOHEMOLYSIS. 04/12/24 1220 Luiz Sandoval.1 Performed By: #### L 500.2500, L501.4020 ####[facility] [address] [place], [address] Urea nitrogen [Mass/Vol] 16 mg/dL Normal 7-18 [facility] Comment on above: Order Comment: NEETU Giles. PREVIOUS SPECIMEN REJECTED DUE TOHEMOLYSIS. 04/12/24 1220 Luiz Sandoval.1 Performed By: #### L 500.2500, L501.4020 ####[facility] [address] [place], [address] BUN Normal 7-18 [facility] Comment on above: Order Comment: 'TROP ' Serial specimen #1, #2 or #3: 1 Result Comment: This specimen has been REJECTED due to Laboratory criteria:Hemolyzed.LORILIE has been notified of need of recollection.04/12/241217 Luiz Sandoval Performed By: #### L 500.2500, L503.6620, L100.0100 ####[facility] [address] [place], [address] BUN/CRE Normal 10-20 [facility] Comment on above: Order Comment: 'TROP ' Serial specimen #1, #2 or #3: 1 Result Comment: This specimen has been REJECTED due to Laboratory criteria:Hemolyzed.LORILIE has been notified of need of recollection.04/12/24 1218 Luiz Sandoval Performed By: #### L 500.2500, L503.6620, L100.0100 ####[facility] [address] [place], [address] CA,Total Normal 8.5-10.1 [facility] Comment on above: Order Comment: 'TROP ' Serial specimen #1, #2 or #3: 1 Result Comment: This specimen has been REJECTED due to Laboratory criteria:[email or web address].LORILIE has been notified of need of recollection.04/12/24 1218 Luiz Sandoval Performed By: #### L 500.2500, L503.6620, L100.0100 ####[facility] [address] [place], [address] CL Normal 98-107 [facility] Comment on above: Order Comment: 'TROP ' Serial specimen #1, #2 or #3: 1 Result Comment: This specimen has been REJECTED due to Laboratory criteria:Hemolyzed.[email or web address] has been notified of need of recollection.04/12/24 1218 Luiz Sandoval Performed By: #### L 500.2500, L503.6620, L100.0100 ####[facility] [address] [place], [address] CO2 Normal 21.0-32.0 [facility] Comment on above: Order Comment: 'TROP ' Serial specimen #1, #2 or #3: 1 Result Comment: This specimen has been REJECTED due to Laboratory criteria:Hemolyzed.PORSCHE has been notified of need of recollection.04/12/24 1218 Luiz Sandoval Performed By: #### L 500.2500, L503.6620, L100.0100 ####[facility] [address] [place], [address] CREAT,SERUM Normal 0.70-1.30 [facility] Comment on above: Order Comment: 'TROP ' Serial specimen #1, #2 or #3: 1 Result Comment: This specimen has been REJECTED due to Laboratory criteria:Hemolyzed.PORSCHE has been notified of need of recollection.04/12/24 1218 Luiz Sandoval Performed By: #### L 500.2500, L503.6620, L100.0100 ####[facility] [address] [place], [address] EST GFR Normal >60 [facility] Comment on above: Order Comment: 'TROP ' Serial specimen #1, #2 or #3: 1 Result Comment: This specimen has been REJECTED due to Laboratory criteria:Hemolyzed.PORSCHE has been notified of need of recollection.04/12/24 1218 Luiz Sandoval Performed By: #### L 500.2500, L503.6620, L100.0100 ####[facility] [address] [place], [address] EST GFR - AA Normal >60 [facility] Comment on above: Order Comment: 'TROP ' Serial specimen #1, #2 or #3: 1 Result Comment: This specimen has been REJECTED due to Laboratory criteria:Hemolyzed.PORSCHE has been notified of need of recollection.04/12/24 1218 Luiz Sandoval Performed By: #### L 500.2500, L503.6620, L100.0100 ####[facility] [address] [place], [address] GAP Normal 5-15 [facility] Comment on above: Order Comment: 'TROP ' Serial specimen #1, #2 or #3: 1 Result Comment: This specimen has been REJECTED due to Laboratory criteria:Hemolyzed.PORSCHE has been notified of need of recollection.04/12/24 1218 Luiz Sandoval Performed By: #### L 500.2500, L503.6620, L100.0100 ####[facility] [address] [place], [address] GLU Normal 74-106 [facility] Comment on above: Order Comment: 'TROP ' Serial specimen #1, #2 or #3: 1 Result Comment: This specimen has been REJECTED due to Laboratory criteria:Hemolyzed.PORSCHE has been notified of need of recollection.04/12/24 1218 Luiz Sandoval Performed By: #### L 500.2500, L503.6620, L100.0100 ####[facility] [address] [place], [address] Potassium Normal 3.5-5.1 [facility] Comment on above: Order Comment: 'TROP ' Serial specimen #1, #2 or #3: 1 Result Comment: This specimen has been REJECTED due to Laboratory criteria:Hemolyzed.PORSCHE has been notified of need of recollection.01/12/25 1218 Luiz Sandoval Performed By: #### L 500.2500, L503.6620, L100.0100 ####[facility] [address] [place], [address] Basic Metabolic Profile (BMP) Normal 136-145 [facility] Comment on above: Order Comment: 'TROP ' Serial specimen #1, #2 or #3: 1 Result Comment: This specimen has been REJECTED due to Laboratory criteria:Hemolyzed.PORSCHE has been notified of need of recollection.04/12/24 1218 Luiz Sandoval Performed By: #### L 500.2500, L503.6620, L100.0100 ####[facility] [address] [place], [address] Bedside Glucoseon 04-12-2024 FINGERSTICK GLU 161 mg/dL High 74-106 [facility] Comment on above: Result Comment: ANI GEMENT OF PATIENT CARE PER NURSING PROTOCOL Performed By: #### L 501.080 ####[facility] [address] [place], [address] FINGERSTICK GLU 159 mg/dL High 74-106 [facility] Comment on above: Result Comment: ANI GEMENT OF PATIENT CARE PER NURSING PROTOCOL Performed By: #### L 501.080 ####[facility] [address] [place], [address] Blood cultureOrdered By: Katherin Alex on 04-12-2024 Bacteria identified Cx Nom (Bld) No growth in 5 days. [facility] Bacteria identified Cx Nom (Bld) Presumptive Micrococcus spp. Abnormal [facility] CBC W/Diff, Automatedon 04-01 Absolute Lymph 0.90 X10 3/uL Normal 0.83-4.51 [facility] Comment on above: Performed By: #### L 100.0100 ####[facility] [address] [place], [address] Absolute Neut 9.6 X10 3/uL High 2.0-7.7 [facility] Comment on above: Performed By: #### L 100.0100 ####[facility] [address] [place], [address] Basophils/100 WBC (Bld) 0.3 % Normal 0-1 [facility] Comment on above: Performed By: #### L 100.0100 ####[facility] [address] [place], [address] Eosinophils/100 WBC (Bld) 2.1 % Normal 0-5 [facility] Comment on above: Performed By: #### L 100.0100 ####[facility] [address] [place], [address] Erythrocyte distribution width (RBC) [Ratio] 20.1 % High 11.6-14.6 [facility] Comment on above: Performed By: #### L 100.0100 ####[facility] [address] [place], [address] Hematocrit (Bld) [Volume fraction] 28.3 % Low 40-54 [facility] Comment on above: Performed By: #### L 100.0100 ####[facility] [address] [place], [address] Hemoglobin (Bld) [Mass/Vol] 8.2 g/dL Low 13.0-16.5 [facility] Comment on above: Performed By: #### L 100.0100 ####[facility] [address] [place], [address] IG% 0.400 Normal 0.0-0.9 [facility] Comment on above: Result Comment: IG% - Immature Granulocytes (promyelocytes, myelocytes andmetamyelocytes) > 1% indicates that a LEFT SHIFT is Present. Performed By: #### L 100.0100 ####[facility] [address] [place], [address] Lymphocytes/100 WBC (Bld) 7.5 % Low 19-41 [facility] Comment on above: Performed By: #### L 100.0100 ####[facility] [address] [place], [address] MCH (RBC) [Entitic mass] 21.7 pg Low 27.0-32.0 [facility] Comment on above: Performed By: #### L 100.0100 ####[facility] [address] [place], [address] MCHC (RBC) [Mass/Vol] 29.0 g/dL Low 32-36 [facility] Comment on above: Performed By: #### L 100.0100 ####[facility] [address] [place], [address] MCV (RBC) [Entitic vol] 74.9 fL Low 80-94 [facility] Comment on above: Performed By: #### L 100.0100 ####[facility] [address] [place], [address] Monocytes/100 WBC (Bld) 9.4 % Normal 0-10 [facility] Comment on above: Performed By: #### L 100.0100 ####[facility] [address] [place], [address] Neutrophils/100 WBC (Bld) 80.3 % High 47-70 [facility] Comment on above: Performed By: #### L 100.0100 ####[facility] [address] [place], [address] Nucleated RBC (Bld) [#/Vol] 0 10*3/uL Normal 0-5 [facility] Comment on above: Performed By: #### L 100.0100 ####[facility] [address] [place], [address] Platelet mean volume (Bld) [Entitic vol] 9.6 fL Normal 6.2-12.0 [facility] Comment on above: Performed By: #### L 100.0100 ####[facility] [address] [place], [address] Platelets (Bld) [#/Vol] 282 10*3/uL Normal 150-450 [facility] Comment on above: Performed By: #### L 100.0100 ####[facility] [address] [place], [address] RBC (Bld) [#/Vol] 3.78 10*6/uL Low 4.6-6.2 [facility] Comment on above: Performed By: #### L 100.0100 ####[facility] [address] [place], [address] RDW SD 54.1 fl High 35.1-43.9 [facility] Comment on above: Performed By: #### L 100.0100 ####[facility] [address] [place], [address] WBC (Bld) [#/Vol] 12.0 10*3/uL High 4.4-11.0 [facility] Comment on above: Performed By: #### L 100.0100 ####[facility] [address] [place], [address] Absolute Lymph 0.90 X10 3/uL Normal 0.83-4.51 [facility] Comment on above: Performed By: #### L 500.2500, L503.6620, L100.0100 ####[facility] [address] [place], [address] Absolute Neut 9.9 X10 3/uL High 2.0-7.7 [facility] Comment on above: Performed By: #### L 500.2500, L503.6620, L100.0100 ####[facility] [address] [place], [address] Basophils/100 WBC (Bld) 0.4 % Normal 0-1 [facility] Comment on above: Performed By: #### L 500.2500, L503.6620, L100.0100 ####[facility] [address] [place], [address] Eosinophils/100 WBC (Bld) 2.3 % Normal 0-5 [facility] Comment on above: Performed By: #### L 500.2500, L503.6620, L100.0100 ####[facility] [address] [place], [address] Erythrocyte distribution width (RBC) [Ratio] 19.9 % High 11.6-14.6 [facility] Comment on above: Performed By: #### L 500.2500, L503.6620, L100.0100 ####[facility] [address] [place], [address] Hematocrit (Bld) [Volume fraction] 27.8 % Low 40-54 [facility] Comment on above: Performed By: #### L 500.2500, L503.6620, L100.0100 ####[facility] [address] [place], [address] Hemoglobin (Bld) [Mass/Vol] 8.2 g/dL Low 13.0-16.5 [facility] Comment on above: Performed By: #### L 500.2500, L503.6620, L100.0100 ####[facility] [address] [place], [address] IG% 0.400 Normal 0.0-0.9 [facility] Comment on above: Result Comment: IG% - Immature Granulocytes (promyelocytes, myelocytes andmetamyelocytes) > 1% indicates that a LEFT SHIFT is Present. Performed By: #### L 500.2500, L503.6620, L100.0100 ####[facility] [address] [place], [address] Lymphocytes/100 WBC (Bld) 7.4 % Low 19-41 [facility] Comment on above: Performed By: #### L 500.2500, L503.6620, L100.0100 ####[facility] [address] [place], [address] MCH (RBC) [Entitic mass] 22.1 pg Low 27.0-32.0 [facility] Comment on above: Performed By: #### L 500.2500, L503.6620, L100.0100 ####[facility] [address] [place], [address] MCHC (RBC) [Mass/Vol] 29.5 g/dL Low 32-36 [facility] Comment on above: Performed By: #### L 500.2500, L503.6620, L100.0100 ####[facility] [address] [place], [address] MCV (RBC) [Entitic vol] 74.9 fL Low 80-94 [facility] Comment on above: Performed By: #### L 500.2500, L503.6620, L100.0100 ####[facility] [address] [place], [address] Monocytes/100 WBC (Bld) 8.5 % Normal 0-10 [facility] Comment on above: Performed By: #### L 500.2500, L503.6620, L100.0100 ####[facility] [address] [place], [address] Neutrophils/100 WBC (Bld) 81.0 % High 47-70 [facility] Comment on above: Performed By: #### L 500.2500, L503.6620, L100.0100 ####[facility] [address] [place], [address] Nucleated RBC (Bld) [#/Vol] 0 10*3/uL Normal 0-5 [facility] Comment on above: Performed By: #### L 500.2500, L503.6620, L100.0100 ####[facility] [address] [place], [address] Platelet mean volume (Bld) [Entitic vol] 10.5 fL Normal 6.2-12.0 [facility] Comment on above: Performed By: #### L 500.2500, L503.6620, L100.0100 ####[facility] [address] [place], [address] Platelets (Bld) [#/Vol] 349 10*3/uL Normal 150-450 [facility] Comment on above: Performed By: #### L 500.2500, L503.6620, L100.0100 ####[facility] [address] [place], [address] RBC (Bld) [#/Vol] 3.71 10*6/uL Low 4.6-6.2 [facility] Comment on above: Performed By: #### L 500.2500, L503.6620, L100.0100 ####[facility] [address] [place], [address] RDW SD 53.1 fl High 35.1-43.9 [facility] Comment on above: Performed By: #### L 500.2500, L503.6620, L100.0100 ####[facility] [address] [place], [address] WBC (Bld) [#/Vol] 12.2 10*3/uL High 4.4-11.0 [facility] Comment on above: Performed By: #### L 500.2500, L503.6620, L100.0100 ####[facility] [address] [place], [place], [address] CO2 (BldV) [Moles/Vol]Ordere d By: Luli Alex on 04-12-2024 CO2 [Moles/Vol] 24 mmol/L 23-33 [facility] Chest 1 View (Portable)on Chest 1 View (Portable) Normal [facility] Emergency Department Summary on 04-12-2024 Emergency Department Summary Normal [facility] H AND P Exam - Hospitaliston 04-12-2024 H&P Exam - Hospitalist Normal [facility] Influenza virus A and B and SARS-CoV-2 (COVID-19) and Respiratory syncytial virus RNAOrdered By: Luli Alex on 04-12-2024 SARS-CoV-2 (COVID-19) RNA FLORES+probe Ql (Unsp spec) [facility] L501.4020on 04-12-2024 TROPONIN-I HS 12 pg/mL Normal 3.0-78.0 [facility] Comment on above: Order Comment: Comme nts: SPECIMEN #3'TROP' Serial specimen #1, #2 or #3: 3 Result Comment: Plea se Note: New Test Units and Gender Specific Reference Ranges. For more information see Policy Stat Procedure [place] High Sensitivity Troponin (TNIH) and attachments. Performed By: #### L 501.4020 ####[facility] [address], [address] TROPONIN-I HS 18 pg/mL Normal 3.0-78.0 [facility] Comment on above: Order Comment: Comme nts: SPECIMEN #2'TROP' Serial specimen #1, #2 or #3: 2 Result Comment: Plea se Note: New Test Units and Gender Specific Reference Ranges. For more information see Policy Stat Procedure [place] High Sensitivity Troponin (TNIH) and attachments. Performed By: #### L 501.4020 ####[facility] [address] [facility] [place], [place], [address] TROPONIN-I HS 16 pg/mL Normal 3.0-78.0 [facility] Comment on above: Order Comment: NEETU W. PREVIOUS SPECIMEN REJECTED DUE TOHEMOLYSIS. 04/12/24 1220 Luiz Sandoval.1 Result Comment: Kodi monterroso Note: New Test Units and Gender Specific Reference Ranges. For more information see Policy Stat Procedure [place] High Sensitivity Troponin (TNIH) and attachments. Performed By: #### L 500.2500, L501.4020 ####[facility] [address] [place], [address] M100.678on 04-12-2024 M100.678 Pending SARS-CoV-2 (COVID 19) Negative INFLUENZA A Negative INFLUENZA B Negative RSV PCR Negative Normal [facility] Comment on above: Performed By: #### M 100.678 ####[facility] [address] [place], [address] No Panel InformationOrdered By: Luli Alex on 04-12-2024 JOSHUA [facility] Not entered [facility] Cannula [facility] Organism identificationOrder ed By: Luli Alex on 04-12-2024 Microorganism identified Cx Nom (Unsp spec) [facility] Troponin IOrdered By: Eduin Ospina on 04-12-2024 Troponin I 12 pg/mL 3.0-78.0 [facility] Venous Blood Gason 5 Blood Gas Type JOSHUA Normal [facility] Comment on above: Performed By: #### L 9000.0810 ####[facility] [address] [place], [address] CO2 [Moles/Vol] 24 mmol/L Normal 23-33 [facility] Comment on above: Performed By: #### L 9000.0810 ####[facility] [address] [place], [address] FI02 5.0 Normal [facility] Comment on above: Performed By: #### L 9000.0810 ####[facility] [address] [place], [address] HCO3 (Bld) [Moles/Vol] 23 mmol/L Normal 22-26 [facility] Comment on above: Performed By: #### L 9000.0810 ####[facility] [address] [place], [address] O2 Delivery Dev Cannula Normal [facility] Comment on above: Performed By: #### L 9000.0810 ####[facility] [address] [place], [address] SITE Not entered Normal [facility] Comment on above: Performed By: #### L 9000.0810 ####[facility] [address] [place], [address] VBG BE -1 mmol/L Normal -1.0-3.5 [facility] Comment on above: Performed By: #### L 9000.0810 ####[facility] [address] [place], [address] VBG pCO2 34.8 mmHg Low 41-51 [facility] Comment on above: Performed By: #### L 9000.0810 ####[facility] [address] [place], [address] VBG pH 7.43 High 7.32-7.42 [facility] Comment on above: Performed By: #### L 9000.0810 ####[facility] [address] [place], [address] VBG PO2 30 mmHg Normal 25-40 [facility] Comment on above: Performed By: #### L 9000.0810 ####[facility] [address] [place], [address] VBG SO2 60 Normal 50-70 [facility] Comment on above: Performed By: #### L 9000.0810 ####[facility] [address] [place], [address] Venous blood base excess elizabeth surementOrdered By: Luli Alex on 04-12-2024 Base excess Calc (BldV) [Moles/Vol] -1 mmol/L -1.0-3.5 [facility] Venous blood bicarbonate elizabeth surementOrdered By: Luli Alex on 04-12-2024 HCO3 (Bld) [Moles/Vol] 23 mmol/L 22-26 [facility] Venous blood pH measurementO rdered By: Luli Alex on 04-12-2024 pH (BldV) 7.43 [pH] High 7.32-7.42 [facility] Venous blood partial pressur e of carbon dioxide measurementOrdered By: Luli Alex on 04-12-2024 CO2 (BldV) [Partial pressure] 34.8 mm[Hg] Low 41-51 [facility] Venous blood partial pressur e of oxygen measurementOrdered By: Luli Alex on 04-12-2024 Oxygen (BldV) [Partial pressure] 30 mm[Hg] 25-40 [facility] 36on 04-09-2024 36 Call ref #[id number] 000 NAN for CPT 66779 & 39479 Normal [facility] No Panel Informationon 04-07 1. There [...] SYSTEM [facility] 1965 [id number] Exam Date/Time: 04/06/2024 13:31 Procedure: VASC US [...] 50-69% ECA systolic: 256 cm/sec Vertebral: Antegrade [facility] Sameer Etienne MD - 04/07/2024 [facility] Name[facility] 1965 [id number] Exam Date/Time: 04/06/2024 13:31 Procedure: VASC US [...] MD Electronically Signed Date/Time: 04/07/2024 12:27 AM [facility] I Just Shared [facility] US CAROTID ARTERY DUPLE X BILATERALon 04-07-2024 [facility] US CAROTID ARTERY DUPLEX BILATERAL Patient [...] MD Electronically Signed Date/Time: 04/07/2024 12:27 AM [facility] Office Visit Reporton 2023 Office Visit Report Normal [facility] Bedside Glucoseon 03-27-2024 FINGERSTICK GLU 195 mg/dL High 74-106 [facility] Comment on above: Result Comment: ANI BRADFORD OF PATIENT CARE PER NURSING PROTOCOL Performed By: #### L 501.080 ####[facility] [address] [place], [address] Colonoscopy Reporton 024 Colonoscopy Report Normal [facility] EGD Reporton 03-27-2024 EGD Report Normal [facility] H Pylori (initial)on 024 H Pylori (initial) Normal [facility] Comment on above: Performed By: #### P H.PYLORI ####[facility] [address] [place], [place], [address] MR/POSTOP.ANEon 03-27-2024 MR/POSTOP.ANE Normal [facility] MR/IAWHFRIM4fy 03-27-2024 MR/POSTOPAN2 Normal [facility] Surgery Specimen Level Dolores 03-27-2024 Surgery Specimen Level IV Normal [facility] Comment on above: Performed By: #### P SUIV ####[facility] [address] [place], [place], [address] Pulmonary Visit Reporton Pulmonary Visit Report Normal [facility] MR/PAT.ANEon 03-20-2024 MR/PAT.ANE Normal [facility] Cardiology Visit Reporton Cardiology Visit Report Normal [facility] RICARDO w/ Reflex Mult Confirmon 03-05-2024 RICARDO,DIRECT Negative Normal Negative [facility] Comment on above: Result Comment: Perf ormed at: - [facility] [address] [id number] Director: Chance Morales PhD, Phone: [phone] Performed By: #### L 677.5625, D4237.9899, I3741.6727, H1261.8505 ####[facility] [address] [place], [place], [address] ANCAon 03-05-2024 Atypical pANCA <1:20 Normal Neg:<1:20 [facility] Comment on above: Result Comment: The atypical pANCA pattern has been observed in asignificant percentage of patients with ulcerative colitis,primary sclerosing cholangitis and autoimmune hepatitis. Performed By: #### L 505.7010, L3300.1200, L3100.5450, L4600.0100 ####[facility] [address] [place], [address] Cytoplasmic Ab <1:20 Normal Neg:<1:20 [facility] Comment on above: Performed By: #### L 505.7010, L3300.1200, L3100.5450, L4600.0100 ####[facility] [address] [place], [address] Perinuclear Ab. <1:20 Normal Neg:<1:20 [facility] Comment on above: Result Comment: The presence of positive fluorescence exhibiting P-ANCA orC-ANCA patterns alone is not specific for the diagnosis ofWegener's Granulomatosis (WG) or microscopic polyangiitis.Decisions about treatment should not be based solely onANCA IFA results. The [employer] ANCA Group Consensusrecommends follow up testing of positive sera with both ND-3 and MPO-ANCA enzyme immunoassays. As many as 5% serumsamples are positive only by EIA. Ref. AM J Clin Muzknn2303;111:507-513. Performed By: #### L 505.7010, L3300.1200, L3100.5450, L4600.0100 ####[facility] [address] [place], [address] CCP IgG Antibodieson 024 CCP IgG Ab. 6 units Normal 0-19 [facility] Comment on above: Result Comment: Nega tive <20 Weak positive 20 - 39 Moderate positive 40 - 59 Strong positive >59Performed at: [facility] [address] [id number] Director: Chance Morales PhD, Phone: [phone] Performed By: #### L 505.7010, L3300.1200, L3100.5450, L4600.0100 ####[facility] [address] [place], [address] Discharge Instructionon Discharge Instruction Normal [facility] Rheumatoid Factoron 03-04-20 24 RHEUMATOID FAC 25.0 IU/mL High <15 [facility] Comment on above: Performed By: #### L 505.7010, L3300.1200, L3100.5450, L4600.0100 ####[facility] [address] [place], [address] CBC W/Diff, Automatedon -2023 Absolute Lymph 1.46 X10 3/uL Normal 0.83-4.51 [facility] Comment on above: Performed By: #### L 501.9540, L100.0100 ####[facility] [address] [place], [address] Absolute Neut 5.9 X10 3/uL Normal 2.0-7.7 [facility] Comment on above: Performed By: #### L 501.9520, L100.0100 ####[facility] [address] [place], [address] Basophils/100 WBC (Bld) 0.6 % Normal 0-1 [facility] Comment on above: Performed By: #### L 501.9520, L100.0100 ####[facility] [address] [place], [address] Eosinophils/100 WBC (Bld) 2.9 % Normal 0-5 [facility] Comment on above: Performed By: #### L 501.9520, L100.0100 ####[facility] [address] [place], [address] Erythrocyte distribution width (RBC) [Ratio] 17.6 % High 11.6-14.6 [facility] Comment on above: Performed By: #### L 501.9519, L100.0100 ####[facility] [address] [place], [address] Hematocrit (Bld) [Volume fraction] 31.2 % Low 40-54 [facility] Comment on above: Performed By: #### L 501.9519, L100.0100 ####[facility] [address] [place], [address] Hemoglobin (Bld) [Mass/Vol] 9.0 g/dL Low 13.0-16.5 [facility] Comment on above: Performed By: #### L 501.9519, L100.0100 ####[facility] [address] [place], [address] IG% 0.400 Normal 0.0-0.9 [facility] Comment on above: Result Comment: IG% - Immature Granulocytes (promyelocytes, myelocytes andmetamyelocytes) > 1% indicates that a LEFT SHIFT is Present. Performed By: #### L 501.9519, L100.0100 ####[facility] [address] [place], [address] Lymphocytes/100 WBC (Bld) 17.2 % Low 19-41 [facility] Comment on above: Performed By: #### L 501.9519, L100.0100 ####[facility] [address] [place], [address] MCH (RBC) [Entitic mass] 21.9 pg Low 27.0-32.0 [facility] Comment on above: Performed By: #### L 501.9519, L100.0100 ####[facility] [address] [place], [address] MCHC (RBC) [Mass/Vol] 28.8 g/dL Low 32-36 [facility] Comment on above: Performed By: #### L 501.9519, L100.0100 ####[facility] [address] [place], [address] MCV (RBC) [Entitic vol] 75.9 fL Low 80-94 [facility] Comment on above: Performed By: #### L 501.20, L100.0100 ####[facility] [address] [place], [address] Monocytes/100 WBC (Bld) 9.3 % Normal 0-10 [facility] Comment on above: Performed By: #### L 501.9519, L100.0100 ####[facility] [address] [place], [address] Neutrophils/100 WBC (Bld) 69.6 % Normal 47-70 [facility] Comment on above: Performed By: #### L 501.9519, L100.0100 ####[facility] [address] [place], [address] Nucleated RBC (Bld) [#/Vol] 0 10*3/uL Normal 0-5 [facility] Comment on above: Performed By: #### L 501.9519, L100.0100 ####[facility] [address] [place], [address] Platelet mean volume (Bld) [Entitic vol] 9.8 fL Normal 6.2-12.0 [facility] Comment on above: Performed By: #### L 501.9519, L100.0100 ####[facility] [address] [place], [address] Platelets (Bld) [#/Vol] 227 10*3/uL Normal 150-450 [facility] Comment on above: Performed By: #### L 501.9519, L100.0100 ####[facility] [address] [place], [address] RBC (Bld) [#/Vol] 4.11 10*6/uL Low 4.6-6.2 [facility] Comment on above: Performed By: #### L 501.9520, L100.0100 ####[facility] [address] [place], [address] RDW SD 47.8 fl High 35.1-43.9 [facility] Comment on above: Performed By: #### L 501.9520, L100.0100 ####[facility] [address] [place], [address] WBC (Bld) [#/Vol] 8.5 10*3/uL Normal 4.4-11.0 [facility] Comment on above: Performed By: #### L 501.9520, L100.0100 ####[facility] [address] 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, [address] Thyroid Stim Hormone (TSH)on 03-03-2024 TSH 1.390 uIU/mL Normal 0.358-3.740 [facility] Comment on above: Performed By: #### L 501.9520, L100.0100 ####[facility] [address] [place], [address] 12 Lead EKGon 03-02-2024 12 Lead EKG Normal [facility] BNP,B-Type NATRIURETIC PEPTI Sindy 03-02-2024 Natriuretic peptide B (Bld) [Mass/Vol] 48.5 pg/mL Normal 0-100 [facility] Comment on above: Performed By: #### L 501.4020, L100.0100, L500.2500, L503.6620 ####[facility] [address] [place], [address] Basic Metabolic Profile (BMP )on 03-02-2024 BUN/CRE 23.3 RATIO High 10-20 [facility] Comment on above: Order Comment: 'TROP ' Serial specimen #1, #2 or #3: 1 Performed By: #### L 501.4020, L100.0100, L500.2500, L503.6620 ####[facility] [address] [place], [address] CA,Total 9.0 mg/dL Normal 8.5-10.1 [facility] Comment on above: Order Comment: 'TROP ' Serial specimen #1, #2 or #3: 1 Performed By: #### L 501.4020, L100.0100, L500.2500, L503.6620 ####[facility] [address] [place], [address] Chloride [Moles/Vol] 107 mmol/L Normal 98-107 [facility] Comment on above: Order Comment: 'TROP ' Serial specimen #1, #2 or #3: 1 Performed By: #### L 501.4020, L100.0100, L500.2500, L503.6620 ####[facility] [address] [place], [address] CO2 [Moles/Vol] 24.0 mmol/L Normal 21.0-32.0 [facility] Comment on above: Order Comment: 'TROP ' Serial specimen #1, #2 or #3: 1 Performed By: #### L 501.4020, L100.0100, L500.2500, L503.6620 ####[facility] [address] [place], [address] Creatinine [Mass/Vol] 1.03 mg/dL Normal 0.70-1.30 [facility] Comment on above: Order Comment: 'TROP ' Serial specimen #1, #2 or #3: 1 Result Comment: The validity of the calculated GFR GFRAA in patients over70 years has not been determined. Clinical correlation isessential. Performed By: #### L 501.4020, L100.0100, L500.2500, L503.6620 ####[facility] [address] [place], [address] ECRCL 107.77 ml/min Normal [facility] Comment on above: Order Comment: 'TROP ' Serial specimen #1, #2 or #3: 1 Performed By: #### L 501.4020, L100.0100, L500.2500, L503.6620 ####[facility] [address] [place], [address] EST GFR - AA 95 mL/min Normal >60 [facility] Comment on above: Order Comment: 'TROP ' Serial specimen #1, #2 or #3: 1 Result Comment: Afri can [place] GFR Calc Performed By: #### L 501.4020, L100.0100, L500.2500, L503.6620 ####[facility] [address] [place], [address] GAP 6 Normal 5-15 [facility] Comment on above: Order Comment: 'TROP ' Serial specimen #1, #2 or #3: 1 Performed By: #### L 501.4020, L100.0100, L500.2500, L503.6620 ####[facility] [address] [place], [address] GFR/1.73 sq M.predicted among non-blacks MDRD (S/P/Bld) [Vol rate/Area] 78 mL/min/{1.73_m2} Normal >60 [facility] Comment on above: Order Comment: 'TROP ' Serial specimen #1, #2 or #3: 1 Result Comment: Non- GFR Calc Performed By: #### L 501.4020, L100.0100, L500.2500, L503.6620 ####[facility] [address] [place], [address] Glucose [Mass/Vol] 220 mg/dL High 74-106 [facility] Comment on above: Order Comment: 'TROP ' Serial specimen #1, #2 or #3: 1 Result Comment: Gluc ose result greater than or equal to 200 mg/dLsuggests DIABETES MELLITUS per A.D.A. criteria. Performed By: #### L 501.4020, L100.0100, L500.2500, L503.6620 ####[facility] [address] [place], [address] Potassium [Moles/Vol] 4.0 mmol/L Normal 3.5-5.1 [facility] Comment on above: Order Comment: 'TROP ' Serial specimen #1, #2 or #3: 1 Performed By: #### L 501.4020, L100.0100, L500.2500, L503.6620 ####[facility] [address] [place], [address] Sodium [Moles/Vol] 136 mmol/L Normal 136-145 [facility] Comment on above: Order Comment: 'TROP ' Serial specimen #1, #2 or #3: 1 Performed By: #### L 501.4020, L100.0100, L500.2500, L503.6620 ####[facility] [address] [place], [address] Urea nitrogen [Mass/Vol] 24 mg/dL High 7-18 [facility] Comment on above: Order Comment: 'TROP ' Serial specimen #1, #2 or #3: 1 Performed By: #### L 501.4020, L100.0100, L500.2500, L503.6620 ####[facility] [address] [place], [address] CBC W/Diff, Automatedon 12-0 2-2024 Absolute Lymph 1.30 X10 3/uL Normal 0.83-4.51 [facility] Comment on above: Performed By: #### L 501.4020, L100.0100, L500.2500, L503.6620 ####[facility] [address] [place], [address] Absolute Neut 6.6 X10 3/uL Normal 2.0-7.7 [facility] Comment on above: Performed By: #### L 501.4020, L100.0100, L500.2500, L503.6620 ####[facility] [address] [place], [address] Basophils/100 WBC (Bld) 0.6 % Normal 0-1 [facility] Comment on above: Performed By: #### L 501.4020, L100.0100, L500.2500, L503.6620 ####[facility] [address] [place], [address] Eosinophils/100 WBC (Bld) 2.4 % Normal 0-5 [facility] Comment on above: Performed By: #### L 501.4020, L100.0100, L500.2500, L503.6620 ####[facility] [address] [place], [address] Erythrocyte distribution width (RBC) [Ratio] 17.9 % High 11.6-14.6 [facility] Comment on above: Performed By: #### L 501.4020, L100.0100, L500.2500, L503.6620 ####[facility] [address] [place], [address] Hematocrit (Bld) [Volume fraction] 32.1 % Low 40-54 [facility] Comment on above: Performed By: #### L 501.4020, L100.0100, L500.2500, L503.6620 ####[facility] [address] [place], [address] Hemoglobin (Bld) [Mass/Vol] 9.3 g/dL Low 13.0-16.5 [facility] Comment on above: Performed By: #### L 501.4020, L100.0100, L500.2500, L503.6620 ####[facility] [address] [place], [address] IG% 0.400 Normal 0.0-0.9 [facility] Comment on above: Result Comment: IG% - Immature Granulocytes (promyelocytes, myelocytes andmetamyelocytes) > 1% indicates that a LEFT SHIFT is Present. Performed By: #### L 501.4020, L100.0100, L500.2500, L503.6620 ####[facility] [address] [place], [address] Lymphocytes/100 WBC (Bld) 14.4 % Low 19-41 [facility] Comment on above: Performed By: #### L 501.4020, L100.0100, L500.2500, L503.6620 ####[facility] [address] [place], [address] MCH (RBC) [Entitic mass] 22.2 pg Low 27.0-32.0 [facility] Comment on above: Performed By: #### L 501.4020, L100.0100, L500.2500, L503.6620 ####[facility] [address] [place], [address] MCHC (RBC) [Mass/Vol] 29.0 g/dL Low 32-36 [facility] Comment on above: Performed By: #### L 501.4020, L100.0100, L500.2500, L503.6620 ####[facility] [address] [place], [address] MCV (RBC) [Entitic vol] 76.6 fL Low 80-94 [facility] Comment on above: Performed By: #### L 501.4020, L100.0100, L500.2500, L503.6620 ####[facility] [address] [place], [address] Monocytes/100 WBC (Bld) 8.3 % Normal 0-10 [facility] Comment on above: Performed By: #### L 501.4020, L100.0100, L500.2500, L503.6620 ####[facility] [address] [place], [address] Neutrophils/100 WBC (Bld) 73.9 % High 47-70 [facility] Comment on above: Performed By: #### L 501.4020, L100.0100, L500.2500, L503.6620 ####[facility] [address] [place], [address] Nucleated RBC (Bld) [#/Vol] 0 10*3/uL Normal 0-5 [facility] Comment on above: Performed By: #### L 501.4020, L100.0100, L500.2500, L503.6620 ####[facility] [address] [place], [address] Platelet mean volume (Bld) [Entitic vol] 10.6 fL Normal 6.2-12.0 [facility] Comment on above: Performed By: #### L 501.4020, L100.0100, L500.2500, L503.6620 ####[facility] [address] [place], [address] Platelets (Bld) [#/Vol] 242 10*3/uL Normal 150-450 [facility] Comment on above: Performed By: #### L 501.4020, L100.0100, L500.2500, L503.6620 ####[facility] [address] [place], [address] RBC (Bld) [#/Vol] 4.19 10*6/uL Low 4.6-6.2 [facility] Comment on above: Performed By: #### L 501.4020, L100.0100, L500.2500, L503.6620 ####[facility] [address] [place], [address] RDW SD 49.2 fl High 35.1-43.9 [facility] Comment on above: Performed By: #### L 501.4020, L100.0100, L500.2500, L503.6620 ####[facility] [address] [place], [address] WBC (Bld) [#/Vol] 9.0 10*3/uL Normal 4.4-11.0 [facility] Comment on above: Performed By: #### L 501.4020, L100.0100, L500.2500, L503.6620 ####[facility] [address] [place], [address] Chest PA and Lateralon 03-02 Chest PA and Lateral Normal [facility] Echo Complete W/ Contraston 03-02-2024 Echo Complete W/ Contrast Normal [facility] Emergency Department Summary on 03-02-2024 Emergency Department Summary Normal [facility] H AND P Exam - Hospitaliston 03-02-2024 H&P Exam - Hospitalist Normal [facility] L501.4020on 03-02-2024 TROPONIN-I HS 35 pg/mL Normal 3.0-78.0 [facility] Comment on above: Order Comment: 'TROP ' Serial specimen #1, #2 or #3: 1 Result Comment: Plea se Note: New Test Units and Gender Specific Reference Ranges. For more information see Policy Stat Procedure [place] High Sensitivity Troponin (TNIH) and attachments. Performed By: #### L 501.4020, L100.0100, L500.2500, L503.6620 ####[facility] [address] [place], [address] M100.678on 03-02-2024 M100.678 Pending SARS-CoV-2 (COVID 19) Negative INFLUENZA A Negative INFLUENZA B Negative RSV PCR Negative Normal [facility] Comment on above: Performed By: #### M 100.678 ####[facility] [address] [place], [address] Basic Metabolic Profile (BMP )on 02-26-2024 BUN/CRE 20.5 RATIO High 10-20 [facility] Comment on above: Order Comment: 'TROP ' Serial specimen #1, #2 or #3: 1 Performed By: #### L 501.4020, L501.5200, L500.2500, L100.0100 ####[facility] [address] [place], [address] CA,Total 9.0 mg/dL Normal 8.5-10.1 [facility] Comment on above: Order Comment: 'TROP ' Serial specimen #1, #2 or #3: 1 Performed By: #### L 501.4020, L501.5200, L500.2500, L100.0100 ####[facility] [address] [place], [address] Chloride [Moles/Vol] 109 mmol/L High 98-107 [facility] Comment on above: Order Comment: 'TROP ' Serial specimen #1, #2 or #3: 1 Performed By: #### L 501.4020, L501.5200, L500.2500, L100.0100 ####[facility] [address] [place], [address] CO2 [Moles/Vol] 22.0 mmol/L Normal 21.0-32.0 [facility] Comment on above: Order Comment: 'TROP ' Serial specimen #1, #2 or #3: 1 Performed By: #### L 501.4020, L501.5200, L500.2500, L100.0100 ####[facility] [address] [place], [address] Creatinine [Mass/Vol] 1.32 mg/dL High 0.70-1.30 [facility] Comment on above: Order Comment: 'TROP ' Serial specimen #1, #2 or #3: 1 Result Comment: The validity of the calculated GFR GFRAA in patients over70 years has not been determined. Clinical correlation isessential. Performed By: #### L 501.4020, L501.5200, L500.2500, L100.0100 ####[facility] [address] [place], [address] ECRCL 83.89 ml/min Normal [facility] Comment on above: Order Comment: 'TROP ' Serial specimen #1, #2 or #3: 1 Performed By: #### L 501.4020, L501.5200, L500.2500, L100.0100 ####[facility] [address] [place], [address] EST GFR - AA 71 mL/min Normal >60 [facility] Comment on above: Order Comment: 'TROP ' Serial specimen #1, #2 or #3: 1 Result Comment: Afri can [place] GFR Calc Performed By: #### L 501.4020, L501.5200, L500.2500, L100.0100 ####[facility] [address] [place], [address] GAP 7 Normal 5-15 [facility] Comment on above: Order Comment: 'TROP ' Serial specimen #1, #2 or #3: 1 Performed By: #### L 501.4020, L501.5200, L500.2500, L100.0100 ####[facility] [address] [place], [address] GFR/1.73 sq M.predicted among non-blacks MDRD (S/P/Bld) [Vol rate/Area] 59 mL/min/{1.73_m2} Low >60 [facility] Comment on above: Order Comment: 'TROP ' Serial specimen #1, #2 or #3: 1 Result Comment: Non- GFR Calc Performed By: #### L 501.4020, L501.5200, L500.2500, L100.0100 ####[facility] [address] [place], [address] Glucose [Mass/Vol] 193 mg/dL High 74-106 [facility] Comment on above: Order Comment: 'TROP ' Serial specimen #1, #2 or #3: 1 Result Comment: Fast ing Glucose result greater than or equal to 126 mg/dLsuggests DIABETES MELLITUS per A.D.A. criteria. Performed By: #### L 501.4020, L501.5200, L500.2500, L100.0100 ####[facility] [address] [place], [address] Potassium [Moles/Vol] 4.0 mmol/L Normal 3.5-5.1 [facility] Comment on above: Order Comment: 'TROP ' Serial specimen #1, #2 or #3: 1 Performed By: #### L 501.4020, L501.5200, L500.2500, L100.0100 ####[facility] [address] [place], [address] Sodium [Moles/Vol] 138 mmol/L Normal 136-145 [facility] Comment on above: Order Comment: 'TROP ' Serial specimen #1, #2 or #3: 1 Performed By: #### L 501.4020, L501.5200, L500.2500, L100.0100 ####[facility] [address] [place], [address] Urea nitrogen [Mass/Vol] 27 mg/dL High 7-18 [facility] Comment on above: Order Comment: 'TROP ' Serial specimen #1, #2 or #3: 1 Performed By: #### L 501.4020, L501.5200, L500.2500, L100.0100 ####[facility] [address] [place], [address] CBC W/Diff, Automatedon 01-31 Absolute Lymph 1.36 X10 3/uL Normal 0.83-4.51 [facility] Comment on above: Performed By: #### L 501.4020, L501.5200, L500.2500, L100.0100 ####[facility] [address] [place], [address] Absolute Neut 6.7 X10 3/uL Normal 2.0-7.7 [facility] Comment on above: Performed By: #### L 501.4020, L501.5200, L500.2500, L100.0100 ####[facility] [address] [place], [address] Basophils/100 WBC (Bld) 0.9 % Normal 0-1 [facility] Comment on above: Performed By: #### L 501.4020, L501.5200, L500.2500, L100.0100 ####[facility] [address] [place], [address] Eosinophils/100 WBC (Bld) 2.1 % Normal 0-5 [facility] Comment on above: Performed By: #### L 501.4020, L501.5200, L500.2500, L100.0100 ####[facility] [address] [place], [address] Erythrocyte distribution width (RBC) [Ratio] 18.2 % High 11.6-14.6 [facility] Comment on above: Performed By: #### L 501.4020, L501.5200, L500.2500, L100.0100 ####[facility] [address] [place], [address] Hematocrit (Bld) [Volume fraction] 34.4 % Low 40-54 [facility] Comment on above: Performed By: #### L 501.4020, L501.5200, L500.2500, L100.0100 ####[facility] [address] [place], [address] Hemoglobin (Bld) [Mass/Vol] 10.2 g/dL Low 13.0-16.5 [facility] Comment on above: Performed By: #### L 501.4020, L501.5200, L500.2500, L100.0100 ####[facility] [address] [place], [address] IG% 0.400 Normal 0.0-0.9 [facility] Comment on above: Result Comment: IG% - Immature Granulocytes (promyelocytes, myelocytes andmetamyelocytes) > 1% indicates that a LEFT SHIFT is Present. Performed By: #### L 501.4020, L501.5200, L500.2500, L100.0100 ####[facility] [address] [place], [address] Lymphocytes/100 WBC (Bld) 14.5 % Low 19-41 [facility] Comment on above: Performed By: #### L 501.4020, L501.5200, L500.2500, L100.0100 ####[facility] [address] [place], [address] MCH (RBC) [Entitic mass] 22.7 pg Low 27.0-32.0 [facility] Comment on above: Performed By: #### L 501.4020, L501.5200, L500.2500, L100.0100 ####[facility] [address] [place], [address] MCHC (RBC) [Mass/Vol] 29.7 g/dL Low 32-36 [facility] Comment on above: Performed By: #### L 501.4020, L501.5200, L500.2500, L100.0100 ####[facility] [address] [place], [address] MCV (RBC) [Entitic vol] 76.6 fL Low 80-94 [facility] Comment on above: Performed By: #### L 501.4020, L501.5200, L500.2500, L100.0100 ####[facility] [address] [place], [address] Monocytes/100 WBC (Bld) 10.1 % High 0-10 [facility] Comment on above: Performed By: #### L 501.4020, L501.5200, L500.2500, L100.0100 ####[facility] [address] [place], [address] Neutrophils/100 WBC (Bld) 72.0 % High 47-70 [facility] Comment on above: Performed By: #### L 501.4020, L501.5200, L500.2500, L100.0100 ####[facility] [address] [place], [address] Nucleated RBC (Bld) [#/Vol] 0 10*3/uL Normal 0-5 [facility] Comment on above: Performed By: #### L 501.4020, L501.5200, L500.2500, L100.0100 ####[facility] [address] [place], [address] Platelet mean volume (Bld) [Entitic vol] 10.1 fL Normal 6.2-12.0 [facility] Comment on above: Performed By: #### L 501.4020, L501.5200, L500.2500, L100.0100 ####[facility] [address] [place], [address] Platelets (Bld) [#/Vol] 254 10*3/uL Normal 150-450 [facility] Comment on above: Performed By: #### L 501.4020, L501.5200, L500.2500, L100.0100 ####[facility] [address] [place], [address] RBC (Bld) [#/Vol] 4.49 10*6/uL Low 4.6-6.2 [facility] Comment on above: Performed By: #### L 501.4020, L501.5200, L500.2500, L100.0100 ####[facility] [address] [place], [address] RDW SD 49.1 fl High 35.1-43.9 [facility] Comment on above: Performed By: #### L 501.4020, L501.5200, L500.2500, L100.0100 ####[facility] [address] [place], [address] WBC (Bld) [#/Vol] 9.4 10*3/uL Normal 4.4-11.0 [facility] Comment on above: Performed By: #### L 501.4020, L501.5200, L500.2500, L100.0100 ####[facility] [address] [place], [address] Chest 1 View (Portable)on Chest 1 View (Portable) Normal [facility] D-Dimer Quantitative (DVT/PE )on 02-26-2024 D-DIMER QUANT 0.44 FEU/ug/m Normal 0.27-0.49 [facility] Comment on above: Result Comment: NORM AL D-Dimer level (<0.50) indicates no DVT or PE. Performed By: #### L 300.8000 ####[facility] [address] [place], [address] Emergency Department Summary on 02-26-2024 Emergency Department Summary Normal [facility] L501.4020on 02-26-2024 TROPONIN-I HS 443 pg/mL Invalid Interpretation Code 3.0-78.0 [facility] Comment on above: Order Comment: 'TROP ' Serial specimen #1, #2 or #3: 2 Result Comment: Crit ical Result(s) Called at: 13:36:54 02/26/2024 by: CINDI Estevez. Results read back by same. Please Note: New Test Units and Gender Specific Reference Ranges. For more information see Policy Stat Procedure [place] High Sensitivity Troponin (TNIH) and attachments. Performed By: #### L 501.4020 ####[facility] [address] [place], [address] TROPONIN-I HS 358 pg/mL Invalid Interpretation Code 3.0-78.0 [facility] Comment on above: Order Comment: 'TROP ' Serial specimen #1, #2 or #3: 1 Result Comment: Crit ical Result(s) Called at: 11:46:25 02/26/2024 by: CINDI Vazquez. Results read back by same. Please Note: New Test Units and Gender Specific Reference Ranges. For more information see Policy Stat Procedure [place] High Sensitivity Troponin (TNIH) and attachments. Performed By: #### L 501.4020, L501.5200, L500.2500, L100.0100 ####[facility] [address] [place], [address] Magnesiumon 02-26-2024 Magnesium [Mass/Vol] 2.3 mg/dL Normal 1.6-2.6 [facility] Comment on above: Order Comment: 'TROP ' Serial specimen #1, #2 or #3: 1 Performed By: #### L 501.4020, L501.5200, L500.2500, L100.0100 ####[facility] [address] [place], [address] Office Visit Reporton 2023 Office Visit Report Normal [facility] Neurology Visit Reporton Neurology Visit Report Normal [facility] 36on 02-12-2024 36 Notes and imaging [...] will determine when to resume Eliquis. Normal [facility] 36 This patient left a voicemail returning a call regarding his test results with Dr. Hutton Please advise :) Normal [facility] Gastroenterology Visit Repor ton 02-07-2024 Gastroenterology Visit Report Normal [facility] 36on 02-06-2024 36 Name of caller: Megan Contact phone number: [phone] Relationship to Patient: care team amanda Provider: Jose Antonio Practice: Endovascular Chief Complaint/Reason for Call: please send all lab work from September to fax [phone] [facility] Best time of day caller can be reached: any Patient advised that office/PCP has 24-48 business hours to return their call: No Normal [facility] CT HEAD NECK ANGIO W AND WO IV CONTRASTon 02-06-2024 CT HEAD NECK ANGIO W AND WO IV CONTRAST [facility] 1965 [id number] Exam Date/Time: 02/06/2024 08:04 Procedure: CT HEAD [...] carotid artery stenosis, Ischemic cerebrovascular accident Normal [facility] Thyroidon 02-06-2024 Thyroid Normal [facility] Progress Noteon 02-05-2024 Progress Note 02/05/24 Pt was seen today for CT Head/Neck w & wo contrast @ [facility] Pt had multiple attempts for IV placement from 2 different techs, with no success. Patient did inform us that he is a very hard stick and normally US is needed. Reached out to oncology for assistance but were extremely busy. Pt was advised to call central scheduling to reschedule at either [facility] or [facility] as they have US. He was initially scheduled at [facility]. The office was contacted on 02/05/24 to relay the information on the outcome of today's CT exam. Christine at the office was given this information. Normal [facility] Oncology Visit Reporton 11-0 Oncology Visit Report Normal [facility] Basic Metabolic Profile (BMP )on 01-22-2024 BUN/CRE 25.4 RATIO High 10-20 [facility] Comment on above: Performed By: #### L 500.2500, L100.0100 ####[facility] [address] [place], [address] CA,Total 8.9 mg/dL Normal 8.5-10.1 [facility] Comment on above: Performed By: #### L 500.2500, L100.0100 ####[facility] [address] [place], [address] Chloride [Moles/Vol] 105 mmol/L Normal 98-107 [facility] Comment on above: Performed By: #### L 500.2500, L100.0100 ####[facility] [address] [place], [address] CO2 [Moles/Vol] 24.0 mmol/L Normal 21.0-32.0 [facility] Comment on above: Performed By: #### L 500.2500, L100.0100 ####[facility] [address] [place], [address] Creatinine [Mass/Vol] 1.22 mg/dL Normal 0.70-1.30 [facility] Comment on above: Result Comment: The validity of the calculated GFR GFRAA in patients over70 years has not been determined. Clinical correlation isessential. Performed By: #### L 500.2500, L100.0100 ####[facility] [address] [place], [address] ECRCL 91.97 ml/min Normal [facility] Comment on above: Performed By: #### L 500.2500, L100.0100 ####[facility] [address] [place], [address] EST GFR - AA 78 mL/min Normal >60 [facility] Comment on above: Result Comment: Afri can Australian GFR Calc Performed By: #### L 500.2500, L100.0100 ####[facility] [address] [place], [address] GAP 7 Normal 5-15 [facility] Comment on above: Performed By: #### L 500.2500, L100.0100 ####[facility] [address] [place], [address] GFR/1.73 sq M.predicted among non-blacks MDRD (S/P/Bld) [Vol rate/Area] 64 mL/min/{1.73_m2} Normal >60 [facility] Comment on above: Result Comment: Non- GFR Calc Performed By: #### L 500.2500, L100.0100 ####[facility] [address] [place], [address] Glucose [Mass/Vol] 196 mg/dL High 74-106 [facility] Comment on above: Result Comment: Fast ing Glucose result greater than or equal to 126 mg/dLsuggests DIABETES MELLITUS per A.D.A. criteria. Performed By: #### L 500.2500, L100.0100 ####[facility] [address] [place], [address] Potassium [Moles/Vol] 4.1 mmol/L Normal 3.5-5.1 [facility] Comment on above: Performed By: #### L 500.2500, L100.0100 ####[facility] [address] [place], [address] Sodium [Moles/Vol] 136 mmol/L Normal 136-145 [facility] Comment on above: Performed By: #### L 500.2500, L100.0100 ####[facility] [address] [place], [address] Urea nitrogen [Mass/Vol] 31 mg/dL High 7-18 [facility] Comment on above: Performed By: #### L 500.2500, L100.0100 ####[facility] [address] [place], [address] Bedside Glucoseon 01-22-2024 FINGERSTICK GLU 224 mg/dL High 74-106 [facility] Comment on above: Result Comment: ANI GEMENT OF PATIENT CARE PER NURSING PROTOCOL Performed By: #### L 501.080 ####[facility] [address] [place], [address] FINGERSTICK GLU 177 mg/dL High 74-106 [facility] Comment on above: Result Comment: ANI GEMENT OF PATIENT CARE PER NURSING PROTOCOL Performed By: #### L 501.080 ####[facility] [address] [place], [address] CBC W/Diff, Automatedon 10-2 Absolute Lymph 2.23 X10 3/uL Normal 0.83-4.51 [facility] Comment on above: Performed By: #### L 500.2500, L100.0100 ####[facility] [address] [place], [address] Absolute Neut 6.5 X10 3/uL Normal 2.0-7.7 [facility] Comment on above: Performed By: #### L 500.2500, L100.0100 ####[facility] [address] [place], [address] Basophils/100 WBC (Bld) 0.6 % Normal 0-1 [facility] Comment on above: Performed By: #### L 500.2500, L100.0100 ####[facility] [address] [place], [address] Eosinophils/100 WBC (Bld) 3.8 % Normal 0-5 [facility] Comment on above: Performed By: #### L 500.2500, L100.0100 ####[facility] [address] [place], [address] Erythrocyte distribution width (RBC) [Ratio] 17.5 % High 11.6-14.6 [facility] Comment on above: Performed By: #### L 500.2500, L100.0100 ####[facility] [address] [place], [address] Hematocrit (Bld) [Volume fraction] 30.9 % Low 40-54 [facility] Comment on above: Performed By: #### L 500.2500, L100.0100 ####[facility] [address] [place], [address] Hemoglobin (Bld) [Mass/Vol] 9.3 g/dL Low 13.0-16.5 [facility] Comment on above: Performed By: #### L 500.2500, L100.0100 ####[facility] [address] [place], [address] IG% 0.500 Normal 0.0-0.9 [facility] Comment on above: Result Comment: IG% - Immature Granulocytes (promyelocytes, myelocytes andmetamyelocytes) > 1% indicates that a LEFT SHIFT is Present. Performed By: #### L 500.2500, L100.0100 ####[facility] [address] [place], [address] Lymphocytes/100 WBC (Bld) 21.7 % Normal 19-41 [facility] Comment on above: Performed By: #### L 500.2500, L100.0100 ####[facility] [address] [place], [address] MCH (RBC) [Entitic mass] 23.4 pg Low 27.0-32.0 [facility] Comment on above: Performed By: #### L 500.2500, L100.0100 ####[facility] [address] [place], [address] MCHC (RBC) [Mass/Vol] 30.1 g/dL Low 32-36 [facility] Comment on above: Performed By: #### L 500.2500, L100.0100 ####[facility] [address] [place], [address] MCV (RBC) [Entitic vol] 77.6 fL Low 80-94 [facility] Comment on above: Performed By: #### L 500.2500, L100.0100 ####[facility] [address] [place], [address] Monocytes/100 WBC (Bld) 10.7 % High 0-10 [facility] Comment on above: Performed By: #### L 500.2500, L100.0100 ####[facility] [address] [place], [address] Neutrophils/100 WBC (Bld) 62.7 % Normal 47-70 [facility] Comment on above: Performed By: #### L 500.2500, L100.0100 ####[facility] [address] [place], [address] Nucleated RBC (Bld) [#/Vol] 0 10*3/uL Normal 0-5 [facility] Comment on above: Performed By: #### L 500.2500, L100.0100 ####[facility] [address] [place], [address] Platelet mean volume (Bld) [Entitic vol] 9.8 fL Normal 6.2-12.0 [facility] Comment on above: Performed By: #### L 500.2500, L100.0100 ####[facility] [address] [place], [address] Platelets (Bld) [#/Vol] 273 10*3/uL Normal 150-450 [facility] Comment on above: Performed By: #### L 500.2500, L100.0100 ####[facility] [address] [place], [address] RBC (Bld) [#/Vol] 3.98 10*6/uL Low 4.6-6.2 [facility] Comment on above: Performed By: #### L 500.2500, L100.0100 ####[facility] [address] [place], [address] RDW SD 49.5 fl High 35.1-43.9 [facility] Comment on above: Performed By: #### L 500.2500, L100.0100 ####[facility] [address] [place], [address] WBC (Bld) [#/Vol] 10.3 10*3/uL Normal 4.4-11.0 [facility] Comment on above: Performed By: #### L 500.2500, L100.0100 ####[facility] [address] [place], [address] 36on 01-21-2024 36 Patient called to inform me he is in the hospital and will not be able to make his radiology appointment tomorrow. I told patient I will call and cancel for him and gave him the number to call and reschedule when he is ready. Normal [facility] CBC panel Auto (Bld)Ordered By: Russel Sanchez on 10-05-2023 Erythrocyte distribution width (RBC) [Ratio] 17.7 % High 11.5 - 15.0 % [facility] Hematocrit (Bld) [Volume fraction] 36.7 % Low 40.0 - 52.0 % [facility] Hemoglobin (Bld) [Mass/Vol] 11.3 g/dL Low 13.0 - 18.0 g/dL [facility] Interpretation and review of laboratory results Abnormal [facility] MCH (RBC) [Entitic mass] 23.3 pg Low 26.0 - 34.0 pg [facility] MCHC (RBC) [Mass/Vol] 30.8 % 30.5 - 36.0 % [facility] MCV (RBC) [Entitic vol] 75.7 fL Low 77.0 - 99.0 fL [facility] Platelet mean volume (Bld) [Entitic vol] 10.1 fL 9.0 - 12.7 fL [facility] Platelets (Bld) [#/Vol] 221 10*3/uL 140 - 440 10*3/uL [facility] RBC (Bld) [#/Vol] 4.85 10*6/uL 4.40 - 5.9 0 10*6/uL [facility] WBC (Bld) [#/Vol] 9.9 10*3/uL 3.6 - 10.7 10*3/uL [facility] Comprehensive metabolic 1998 panelon 10-05-2023 Albumin [Mass/Vol] 4.1 g/dL 3.5 - 5.0 g/dL [facility] ALP [Catalytic activity/Vol] 101 U/L 38 - 126 U/L [facility] ALT [Catalytic activity/Vol] 21 U/L 0 - 49 U/L [facility] Anion gap [Moles/Vol] 12 mmol/L 3 - 13 mmol/L [facility] AST [Catalytic activity/Vol] 29 U/L 15 - 46 U/L [facility] Bilirubin [Mass/Vol] 1.2 mg/dL 0.2 - 1 .3 mg/dL [facility] Calcium [Mass/Vol] 9.0 mg/dL 8.4 - 10. 4 mg/dL [facility] Chloride [Moles/Vol] 102 mmol/L 98 - 10 7 mmol/L [facility] CO2 [Moles/Vol] 20 mmol/L Low 22 - 30 mmol/L [facility] Creatinine [Mass/Vol] 0.89 mg/dL 0.66 - 1.25 mg/dL [facility] GFR/1.73 sq M.predicted MDRD (S/P/Bld) [Vol rate/Area] - PINF [facility] Comment on above: Calculation based on the Chronic Kidney Disease Epidemiology Collaboration (CKD-EPI) equation refit without adjustment for race Glucose [Mass/Vol] 217 mg/dL High 70 - 100 mg/dL [facility] Interpretation and review of laboratory results Abnormal [facility] Potassium [Moles/Vol] 4.3 mmol/L 3.5 - 5.1 mmol/L [facility] Protein [Mass/Vol] 8.0 g/dL 6.3 - 8.2 g/dL [facility] Sodium [Moles/Vol] 134 mmol/L Low 135 - 145 mmol/L [facility] Urea nitrogen [Mass/Vol] 20 mg/dL 9 - 20 mg/dL [facility] Laboratory - Chemistry and C hemistry - challengeon 10-05-2023 Glucose [Mass/Vol] 215 mg/dL High 70 - 100 mg/dL [facility] Comment on above: Caregiver Notified; Glucose [Mass/Vol] 226 mg/dL High 70 - 100 mg/dL [facility] Comment on above: Caregiver Notified; No Panel InformationOrdered By: Lisa Fernandez on 10-05-2023 Heart Rate 77 bpm [facility] [employer] Work Phone: P Slater 12 degrees [facility] [employer] Work Phone: ND Interval 160 ms [facility] [employer] Work Phone: QRS Slater -16 degrees [facility] [employer] Work Phone: QRSD Interval 113 ms [facility] [employer] Work Phone: QT Interval 401 ms [employer] Work Phone: QTC Interval 453 ms [employer] Work Phone: T Wave Slater 16 degrees [employer] Work Phone: [employer] Work Phone: No Panel Informationon 10-04 Sinus rhythm Left ventricular hypertrophy Anterior Q waves, possibly due to LVH Electronically Signed On 10-05-2023 14:51:39 EDT by Lisa Fernandez CV Lisa Patton MD - 10/05/2023 IMPRESSION: Sinus rhythm Left ventricular hypertrophy Anterior Q waves, possibly due to LVH Electronically Signed On 10-05-2023 14:51:39 EDT by Lisa Fernandez [facility] Interpretation and review of laboratory results Abnormal [facility] Performed by: [facility], [address] [place] [address] CLIA ID: [id number] [facility] [employer] [facility] Interpretation and review of laboratory results Abnormal [facility] [employer] Performed by: [facility], [address] [place] [address] CLIA ID: [id number] [facility] [employer] [facility] Basic metabolic 1998 panelon 10-04-2023 Anion gap [Moles/Vol] 11 mmol/L 3 - 13 mmol/L [facility] [employer] Calcium [Mass/Vol] 9.3 mg/dL 8.4 - 10. 4 mg/dL [facility] [employer] Chloride [Moles/Vol] 105 mmol/L 98 - 10 7 mmol/L [facility] [employer] CO2 [Moles/Vol] 19 mmol/L Low 22 - 30 mmol/L [facility] [employer] Creatinine [Mass/Vol] 0.77 mg/dL 0.66 - 1.25 mg/dL [facility] [employer] GFR/1.73 sq M.predicted MDRD (S/P/Bld) [Vol rate/Area] - PINF [facility] Comment on above: Calculation based on the Chronic Kidney Disease Epidemiology Collaboration (CKD-EPI) equation refit without adjustment for race Glucose [Mass/Vol] 177 mg/dL High 70 - 100 mg/dL [facility] [employer] Interpretation and review of laboratory results Abnormal [facility] Potassium [Moles/Vol] 4.4 mmol/L 3.5 - 5.1 mmol/L [facility] Sodium [Moles/Vol] 134 mmol/L Low 135 - 145 mmol/L [facility] Urea nitrogen [Mass/Vol] 17 mg/dL 9 - 20 mg/dL [facility] CBC panel Auto (Bld)Ordered By: Eduin Brar on 10-04-2023 Erythrocyte distribution width (RBC) [Ratio] 17.9 % High 11.5 - 15.0 % [facility] Hematocrit (Bld) [Volume fraction] 39.6 % Low 40.0 - 52.0 % [facility] Hemoglobin (Bld) [Mass/Vol] 11.3 g/dL Low 13.0 - 18.0 g/dL [facility] Interpretation and review of laboratory results Abnormal [facility] MCH (RBC) [Entitic mass] 23.7 pg Low 26.0 - 34.0 pg [facility] MCHC (RBC) [Mass/Vol] 28.5 % Low 30.5 - 36.0 % [facility] MCV (RBC) [Entitic vol] 83.2 fL 77.0 - 99.0 fL [facility] Platelet mean volume (Bld) [Entitic vol] 9.5 fL 9.0 - 12.7 fL [facility] Platelets (Bld) [#/Vol] 201 10*3/uL 140 - 440 10*3/uL [facility] RBC (Bld) [#/Vol] 4.76 10*6/uL 4.40 - 5.9 0 10*6/uL [facility] WBC (Bld) [#/Vol] 8.3 10*3/uL 3.6 - 10.7 10*3/uL [facility] Laboratory - Chemistry and C hemistry - challengeon 10-04-2023 Glucose [Mass/Vol] 221 mg/dL High 70 - 100 mg/dL [facility] Glucose [Mass/Vol] 157 mg/dL High 70 - 100 mg/dL [facility] Troponin I.cardiac [Mass/Vol] ng/mL NINF - 0.034 ng/mL [facility] Glucose [Mass/Vol] 162 mg/dL High 70 - 100 mg/dL [facility] Troponin I.cardiac [Mass/Vol] ng/mL NINF - 0.034 ng/mL [facility] Glucose [Mass/Vol] 193 mg/dL High 70 - 100 mg/dL [facility] Average glucose Estimated from glycated hemoglobin (Bld) [Mass/Vol] 177 mg/dL [facility] Laboratory - Coagulationon 0 10-04-2023 aPTT Coag (PPP) [Time] 27.3 s 20.0 - 30.5 s [facility] INR Coag (PPP) [Relative time] 1.0 {INR} 0.9 - 1.1 [facility] Comment on above: Recommended Anticoag [...] [Time] 10.9 s 9.0 - 12.[address] [facility] Laboratory - Hematology and Cell countson 10-04-2023 HbA1c (Bld) [Mass fraction] 7.8 % High NINF - 5.7 % [facility] Comment on above: Normal less than 5.7 % Prediabetes 5.7% to 6.4% Diabetes 6.5% or higher --HgbA1C levels may not be accurate in patients who have renal disease, received recent blood transfusions, are anemic, or who have dyshemoglobinemia. Lipid 1996 panelon Cholesterol [Mass/Vol] 147 mg/dL NINF - 200 mg/dL [facility] Cholesterol in HDL [Mass/Vol] 27 mg/dL Low 40 - 60 mg/dL [facility] Cholesterol in LDL [Mass/Vol] 41 mg/dL 0 - <100 [facility] Cholesterol.total/Arsenio sterol in HDL [Mass ratio] 5 {ratio} [facility] Comment on above: Ref Range: < 3 Low Risk for CHD 3-6 Mod Risk for CHD > 6 High Risk for CHD Interpretation and review of laboratory results Abnormal [facility] Triglyceride [Mass/Vol] 397 mg/dL High NINF - 150 mg/dL [facility] No Panel Informationon 10-03 Interpretation and review of laboratory results Abnormal [facility] Performed by: [facility], [address] [place], [place] [id number] CLIA ID: [id number] [facility] Interpretation and review of laboratory results Abnormal [facility] Performed by: [facility], [address] [place] [address] CLIA ID: [id number] [facility] Interpretation and review of laboratory results Normal [facility] Addendum by Analia Zamudio MD on 10/04/2023 [...] and heterogeneous plaque. Subclavian has turbulent flow. 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 During the study longitudinal and transverse views were obtained. Pulsed wave doppler was performed. The exam was performed with the patient in the supine position. Overall the study quality was adequate. Study was technically difficult due to: acoustic shadowing and body habitus. [facility] Interpretation and review of laboratory results Abnormal [facility] Performed by: [facility], [address] [place] [address] CLIA ID: [id number] [facility] Interpretation and review of laboratory results Abnormal [facility] Performed by: [facility], [address] [place] [address], [place] [address] CLIA ID: [id number] [facility] Interpretation and review of laboratory results Abnormal [facility] No Panel InformationOrdered By: Analia Zamudio on [...] Work Phone: Left vertebral PSV 27.1 cm/s [facility] Work Phone: Right CCA dist EDV 22.9 cm/s [facility] Work Phone: Right cca dist PSV 120.8 cm/s [facility] Work Phone: Right CCA mid EDV 26.50 cm/s [employer] Work Phone: Right CCA mid PSV 108.10 cm/s [facility] Work Phone: Right CCA prox EDV 28.0 cm/s [employer] [employer] Work Phone: Right CCA prox PSV 161.8 cm/s [facility] [employer] Work Phone: Right ICA dist EDV 24.7 cm/s [employer] Work Phone: Right ICA dist PSV 78.9 cm/s [employer] Work Phone: Right ICA mid EDV 30.1 cm/s [facility] [employer] Work Phone: Right ICA mid PSV 97.5 cm/s [facility] [employer] Work Phone: Right ICA prox EDV 16.0 cm/s [employer] Work Phone: Right ICA prox PSV 74.3 cm/s [employer] Work Phone: Right ICA/CCA PSV 0.90 [employer] Work Phone: Right subclavian mid EDV 9.7 cm/s [employer] Work Phone: Right subclavian mid PSV 66.0 cm/s [employer] Work Phone: Right vertebral EDV 12.00 cm/s [employer] Work Phone: Right vertebral PSV 47.5 cm/s [employer] Work Phone: Troponin I.cardiac [Mass/Vol ]on 10-04-2023 Interpretation and review of laboratory results [facility] Patients with high levels of Biotin oral intake (ie >5 mg/day) may have falsely decreased Troponin levels. [facility] Interpretation and review of laboratory results Normal [facility] Patients with high levels of Biotin oral intake (ie >5 mg/day) may have falsely decreased Troponin levels. [facility] .Auto Diffon 10-03-2023 Basophil, Absolute 0.1 10 3/mcL Normal 0.0-0.2 [facility] ([place]) Comment on above: Performed By: #### M G, GFR, ADIFF, ANEU, CBC, CMP ####[facility] [address] [place], [place] [address] Basophils/100 WBC (Bld) 1.0 % Normal 0.0-2.5 [facility] ([place]) Comment on above: Performed By: #### M G, GFR, ADIFF, ANEU, CBC, CMP ####[facility] [address] [place], [place] [address] Eosinophil, Absolute 0.4 10 3/mcL Normal 0.0-0.4 [facility] ([place]) Comment on above: Performed By: #### M G, GFR, ADIFF, ANEU, CBC, CMP ####[facility] [address] [place], [place] [address] Eosinophils/100 WBC (Bld) 5.1 % Normal 0.0-7.0 [facility] ([place]) Comment on above: Performed By: #### M G, GFR, ADIFF, ANEU, CBC, CMP ####[facility] [address] [place], [place] [address] Lymphocyte, Absolute 1.6 10 3/mcL Normal 0.8-3.9 [facility] ([place] Comment on above: Performed By: #### M G, GFR, ADIFF, ANEU, CBC, CMP ####[facility] [address] [place], [place] [address] Lymphocytes/100 WBC (Bld) 20.4 % Normal 10.0-50.0 [facility] ([place]) Comment on above: Performed By: #### M G, GFR, ADIFF, ANEU, CBC, CMP ####[address] [place], [place] [address] Monocyte, Absolute 0.9 10 3/mcL Normal 0.2-1.0 [facility] ([place]) Comment on above: Performed By: #### M G, GFR, ADIFF, ANEU, CBC, CMP ####[facility] [place], [place] [address] Monocytes/100 WBC (Bld) 11.5 % Normal 1.7-13.0 [facility] ([place]) Comment on above: Performed By: #### M G, GFR, ADIFF, ANEU, CBC, CMP ####[address] [place], [place] [address] Neutrophils/100 WBC (Bld) 62.0 % Normal 37.0-80.0 [facility] ([place]) Comment on above: Performed By: #### M G, GFR, ADIFF, ANEU, CBC, CMP ####[address] [place], [place] [address] .GFRon 10-03-2023 GFR Non- 72 ml/min/1.73sqm Normal [facility] ([place]) Comment on above: Result Comment: GFR Population [...] G, GFR, ADIFF, ANEU, CBC, CMP ####[facility] [address] [place], [place] [address] GFR 87 ml/min/1.73sqm Normal [facility] ([place] Comment on above: Result Comment: GFR Population [...] GFR, ADIFF, ANEU, CBC, CMP ####[facility] [address] [place], [place] [address] .NEUABSon 10-03-2023 Neutrophil, Absolute 4.7 10 3/mcL Normal 2.9-6.2 [facility] ([place] Comment on above: Performed By: #### M G, GFR, ADIFF, ANEU, CBC, CMP ####[address] [place], [place] [address] CBCon 10-03-2023 Erythrocyte distribution width (RBC) [Ratio] 18.3 % High 11.5-14.5 [facility] ([place]) Comment on above: Performed By: #### M G, GFR, ADIFF, ANEU, CBC, CMP ####[address] [place], [place] [address] Hematocrit (Bld) [Volume fraction] 32.0 % Low 42.0-52.0 [facility] ([place]) Comment on above: Performed By: #### M G, GFR, ADIFF, ANEU, CBC, CMP ####[address] [place], [place] [address] Hgb 10.5 G/dL Low 14.0-18.0 [facility] ([place]) Comment on above: Performed By: #### M G, GFR, ADIFF, ANEU, CBC, CMP ####Jarred [address] [place], [place] [address] MCH (RBC) [Entitic mass] 24.5 pg Low 27.0-31.2 [facility] ([place]) Comment on above: Performed By: #### M G, GFR, ADIFF, ANEU, CBC, CMP ####Jarred [address] [place], [place] [address] MCHC 32.9 G/dL Normal 31.8-35.4 [facility] ([place]) Comment on above: Performed By: #### M G, GFR, ADIFF, ANEU, CBC, CMP ####Jarred [address] [place], [place] [address] MCV (RBC) [Entitic vol] 74.3 fL Low 80.0-94.0 A [facility] ([place]) Comment on above: Performed By: #### M G, GFR, ADIFF, ANEU, CBC, CMP ####Jarred [address] [place], [place] [address] Platelet 211 10 3/mcL Normal 130-400 [facility] ([place]) Comment on above: Performed By: #### [place] G, GFR, ADIFF, ANEU, CBC, CMP ####Jarred [address] [place], [place] [address] Platelet mean volume (Bld) [Entitic vol] 7.6 fL Normal 7.4-10.4 [facility] ([place]) Comment on above: Performed By: #### M G, GFR, ADIFF, ANEU, CBC, CMP ####Jarred [address] [place], [place] [address] RBC 4.31 10 6/mcL Normal 4.04-6.13 [facility] ([place]) Comment on above: Performed By: #### M G, GFR, ADIFF, ANEU, CBC, CMP ####Jarred [address] [place], [place] [address] WBC 7.6 10 3/mcL Normal 4.6-10.8 [facility] ([place]) Comment on above: Performed By: #### M G, GFR, ADIFF, ANEU, CBC, CMP ####Jarred [address] [place], [place] [address] CMPon 10-03-2023 Albumin Level 3.1 G/dL Low 3.4-4.8 [facility] ([place]) Comment on above: Performed By: #### M G, GFR, ADIFF, ANEU, CBC, CMP ####Jarred [address] [place], [place] [address] Albumin/Globulin [Mass ratio] 0.8 {ratio} Low 1.1-2.5 [facility] ([place]) Comment on above: Performed By: #### M G, GFR, ADIFF, ANEU, CBC, CMP ####Jarred [address] [place], [place] [address] ALP [Catalytic activity/Vol] 93 U/L Normal 40-135 [facility] ([place]) Comment on above: Performed By: #### M G, GFR, ADIFF, ANEU, CBC, CMP ####J[address] [place], [place] [address] ALT [Catalytic activity/Vol] 20 U/L Normal 16-63 [facility] ([place]) Comment on above: Performed By: #### M G, GFR, ADIFF, ANEU, CBC, CMP ####Jar[address] [place], [place] [address] AST [Catalytic activity/Vol] 15 U/L Normal 10-40 [facility] ([place]) Comment on above: Performed By: #### M G, GFR, ADIFF, ANEU, CBC, CMP ####Jarred [address] [place], [place] [address] Bili Total 0.5 mg/dL Normal 0.2-1.0 [facility] ([place]) Comment on above: Result Comment: Use of this assay is not recommended for patients undergoing treatment with eltrombopag due to the potential for falsely elevated results. Performed By: #### M G, GFR, ADIFF, ANEU, CBC, CMP ####Jarred [address] [place], [place] [address] BUN/Creatinine Ratio 17 ratio Normal 7-27 [facility] ([place]) Comment on above: Performed By: #### M G, GFR, ADIFF, ANEU, CBC, CMP ####Jarred [address] [place], [place] [address] Calcium [Mass/Vol] 8.9 mg/dL Normal 8.4-10.2 [facility] ([place]) Comment on above: Performed By: #### M G, GFR, ADIFF, ANEU, CBC, CMP ####Jarred [address] [place], [place] [address] Chloride [Moles/Vol] 104 mmol/L Normal 98-107 [facility] ([place]) Comment on above: Performed By: #### M G, GFR, ADIFF, ANEU, CBC, CMP ####Jarred [address] [place], [place] [address] CO2 [Moles/Vol] 27 mmol/L Normal 23-31 [facility] ([place]) Comment on above: Performed By: #### M G, GFR, ADIFF, ANEU, CBC, CMP ####Jarred [address] [place], [place] [address] Creatinine [Mass/Vol] 1.05 mg/dL Normal 0.70-1.30 [facility] ([place]) Comment on above: Performed By: #### M G, GFR, ADIFF, ANEU, CBC, CMP ####Jarred [address] [place], [place] [address] Electrolyte Balance 7.0 mEq/L Normal 4.0-15.0 [facility] ([place]) Comment on above: Performed By: #### M G, GFR, ADIFF, ANEU, CBC, CMP ####[address] [place], [place] [address] Globulin 3.9 G/dL Normal [facility] ([place]) Comment on above: Performed By: #### M G, GFR, ADIFF, ANEU, CBC, CMP ####Jar[address] [place], [place] [address] Glucose [Mass/Vol] 158 mg/dL High 80-115 [facility] ([place]) Comment on above: Performed By: #### M G, GFR, ADIFF, ANEU, CBC, CMP ####Jar[address] [place], [place] [address] Potassium [Moles/Vol] 4.5 mmol/L Normal 3.5-5.1 [facility] ([place]) Comment on above: Performed By: #### M G, GFR, ADIFF, ANEU, CBC, CMP ####J[address] [place], [place] [address] Sodium [Moles/Vol] 138 mmol/L Normal 136-145 [facility] ([place]) Comment on above: Performed By: #### M G, GFR, ADIFF, ANEU, CBC, CMP ####Jarred [address] [place], [place] [address] Total Protein 7.0 G/dL Normal 6.4-8.2 [facility] ([place]) Comment on above: Performed By: #### M G, GFR, ADIFF, ANEU, CBC, CMP ####Jar[address] [place], [place] [address] Urea nitrogen [Mass/Vol] 18 mg/dL Normal 7-18 [facility] ([place]) Comment on above: Performed By: #### M G, GFR, ADIFF, ANEU, CBC, CMP ####Jar[address] [place], [place] [address] CT ANGIOGRAPHY HEAD W/ CONTR Arpit 10-03-2023 [...] AM Ordering Provider: ABDULLAHI AGUIRRE [facility] ([place]) CT ANGIOGRAPHY NECK W/CONTRA Tezn 10-03-2023 CT [...] AM Ordering Provider: ABDULLAHI AGUIRRE [facility] ([place]) CT HEAD OR BRAIN W/O CONTRAS Ton [...] 10/01/2023 11:46:49 PM Ordering Provider: TITA Echevarria [facility] ([place]) LABORATORYOrdered By: Kwasi Rob on 10-03-2023 Blood Glucose Testing Reason Routine (10/03/23 4:43 PM) [facility] Work Phone: Glucose [Mass/Vol] 267 mg/dL High 82 - 115 mg/dL [facility] Work Phone: Blood Glucose Testing Reason Routine (10/03/23 11:39 AM) [facility] Work Phone: Glucose [Mass/Vol] 210 mg/dL High 82 - 115 mg/dL [facility] Work Phone: Blood Glucose Testing Reason Routine (10/03/23 7:58 AM) [facility] Work Phone: Glucose [Mass/Vol] 214 mg/dL High 82 - 115 mg/dL [facility] Work Phone: LABORATORYOrdered By: SYSTEM SYSTEM [...] 10-03-2023 Magnesium [Mass/Vol] 2.0 mg/dL Normal 1.8-2.4 [facility] ([place]) Comment on above: Performed By: #### M G, GFR, ADIFF, ANEU, CBC, CMP ####Jarred [address] [place], [place] [address] .Auto DiffOrdered By: SYSTEM SYSTEM on 10-02-2023 Basophil, Absolute 0.1 103/mcL Normal 0.0-0.2 AO Wo rkflow SS Comment on above: Performed By: #### C BC, ADIFF, MG, GFR, ANEU, CMP ####Jarred [address] [place], [place] [address] Basophils/100 WBC (Bld) 1.0 % Normal 0.0-2.5 A O Workflow SS Comment on above: Performed By: #### C BC, ADIFF, MG, GFR, ANEU, CMP ####Jarred [address] [place], [place] [address] Eosinophil, Absolute 0.3 103/mcL Normal 0.0-0.4 AO Workflow SS Comment on above: Performed By: #### C BC, ADIFF, MG, GFR, ANEU, CMP ####Jarred [address] [place], [place] [address] Eosinophils/100 WBC (Bld) 3.8 % Normal 0.0-7.0 AO Workflow SS Comment on above: Performed By: #### C BC, ADIFF, MG, GFR, ANEU, CMP ####Jarred [address] [place], [place] [address] Lymphocyte, Absolute 1.6 103/mcL Normal 0.8-3.9 AO Workflow SS Comment on above: Performed By: #### C BC, ADIFF, MG, GFR, ANEU, CMP ####Jarred [address] [place], [place] [address] Lymphocytes/100 WBC (Bld) 23.2 % Normal 10.0-50.0 AO Workflow SS Comment on above: Performed By: #### C BC, ADIFF, MG, GFR, ANEU, CMP ####Jarred [address] [place], [place] [address] Monocyte, Absolute 0.7 103/mcL Normal 0.2-1.0 AO Wo rkflow SS Comment on above: Performed By: #### C BC, ADIFF, MG, GFR, ANEU, CMP ####Jarred [address] [place], [place] [address] Monocytes/100 WBC (Bld) 9.7 % Normal 1.7-13.0 A O Workflow SS Comment on above: Performed By: #### C BC, ADIFF, MG, GFR, ANEU, CMP ####Jarred [address] [place], [place] [address] Neutrophils/100 WBC (Bld) 62.3 % Normal 37.0-80.0 AO Workflow SS Comment on above: Performed By: #### C BC, ADIFF, MG, GFR, ANEU, CMP ####Jarred [address] [place], [place] [address] .GFRon 10-02-2023 GFR 76 ml/min/1.73sqm Normal [facility] ([place]) Comment on above: Result Comment: GFR Population [...] BC, ADIFF, MG, GFR, ANEU, CMP ####Jarred [address] [place], [place] [address] GFR Non- 63 ml/min/1.73sqm Normal [facility] ([place]) Comment on above: Result Comment: GFR Population [...] BC, ADIFF, MG, GFR, ANEU, CMP ####Jarred [address] [place], [place] [address] .NEUABSOrdered By: SYSTEM SY STEM on 10-02-2023 Neutrophil, Absolute 4.4 103/mcL Normal 2.9-6.2 AO Workflow SS Comment on above: Performed By: #### C BC, ADIFF, MG, GFR, ANEU, CMP ####Jarred [address] [place], [place] [address] A1Con 10-02-2023 HbA1c (Bld) [Mass fraction] 7.7 % High 4.3-6.4 [facility] ([place]) Comment on above: Performed By: #### F T4, LIPID, A1C, TSH #### Jarred [address] [place] [address] CBCOrdered By: SYSTEM SYSTEM on 10-02-2023 Erythrocyte distribution width (RBC) [Ratio] 18.7 % High 11.5-14.5 AO Workflow SS Comment on above: Performed By: #### C BC, ADIFF, MG, GFR, ANEU, CMP ####Jarred [address] [place], [place] [address] Hematocrit (Bld) [Volume fraction] 33.0 % Low 42.0-52.0 AO Workflow SS Comment on above: Performed By: #### C BC, ADIFF, MG, GFR, ANEU, CMP ####Jarred [address] [place], [place] [address] MCH (RBC) [Entitic mass] 24.6 pg Low 27.0-31.2 AO Workflow SS Comment on above: Performed By: #### C BC, ADIFF, MG, GFR, ANEU, CMP ####Jarred [address] [place], [place] [address] MCHC 32.8 G/dL Normal 31.8-35.4 AO Workflow SS Comment on above: Performed By: #### C BC, ADIFF, MG, GFR, ANEU, CMP ####Jarred [address] [place], [place] [address] MCV (RBC) [Entitic vol] 75.0 fL Low 80.0-94.0 A O Workflow SS Comment on above: Performed By: #### C BC, ADIFF, MG, GFR, ANEU, CMP ####Jarred [address] [place], [place] [address] Platelet mean volume (Bld) [Entitic vol] 7.5 fL Normal 7.4-10.4 AO Workflow SS Comment on above: Performed By: #### C BC, ADIFF, MG, GFR, ANEU, CMP ####Jarred [address] [place], [place] [address] CBCon 10-02-2023 Hgb 10.8 G/dL Low 14.0-18.0 [facility] ([place]) Comment on above: Performed By: #### C BC, ADIFF, MG, GFR, ANEU, CMP ####Jarred [address] [place], [place] [address] Platelet 220 10 3/mcL Normal 130-400 [facility] ([place]) Comment on above: Performed By: #### C BC, ADIFF, MG, GFR, ANEU, CMP ####Jarred [address] [place], [place] [address] RBC 4.40 10 6/mcL Normal 4.04-6.13 [facility] ([place]) Comment on above: Performed By: #### C BC, ADIFF, MG, GFR, ANEU, CMP ####Jarred [address] [place], [place] [address] WBC 7.0 10 3/mcL Normal 4.6-10.8 [facility] ([place]) Comment on above: Performed By: #### C BC, ADIFF, MG, GFR, ANEU, CMP ####Jarred [address] [place], [place] [address] CMPon 10-02-2023 Albumin Level 3.2 G/dL Low 3.4-4.8 [facility] ([place]) Comment on above: Performed By: #### C BC, ADIFF, MG, GFR, ANEU, CMP ####Jarred [address] [place], [place] [address] ALT [Catalytic activity/Vol] 25 U/L Normal 16-63 [facility] ([place]) Comment on above: Performed By: #### C BC, ADIFF, MG, GFR, ANEU, CMP ####Jarred [address] [place], [place] [address] AST [Catalytic activity/Vol] 17 U/L Normal 10-40 [facility] ([place]) Comment on above: Performed By: #### C BC, ADIFF, MG, GFR, ANEU, CMP ####Jarred [address] [place], [place] [address] Bili Total 0.4 mg/dL Normal 0.2-1.0 [facility] ([place]) Comment on above: Result Comment: Use of this assay is not recommended for patients undergoing treatment with eltrombopag due to the potential for falsely elevated results. Performed By: #### C BC, ADIFF, MG, GFR, ANEU, CMP ####Jarred [address] [place], [place] [address] BUN/Creatinine Ratio 21 ratio Normal 7-27 [facility] ([place]) Comment on above: Performed By: #### C BC, ADIFF, MG, GFR, ANEU, CMP ####Jarred [address] [place], [place] [address] Total Protein 7.3 G/dL Normal 6.4-8.2 [facility] ([place]) Comment on above: Performed By: #### C BC, ADIFF, MG, GFR, ANEU, CMP ####Jarred [address] [place], [place] [address] CMPOrdered By: SYSTEM SYSTEM on 10-02-2023 Albumin/Globulin [Mass ratio] 0.8 {ratio} Low 1.1-2.5 AO ADM SS Comment on above: Performed By: #### C BC, ADIFF, MG, GFR, ANEU, CMP ####Jarred [address] [place], [place] [address] ALP [Catalytic activity/Vol] 99 U/L Normal 40-135 AO ADM SS Comment on above: Performed By: #### C BC, ADIFF, MG, GFR, ANEU, CMP ####Jarred [address] [place], [place] [address] Calcium [Mass/Vol] 8.8 mg/dL Normal 8.4-10.2 AO ADM SS Comment on above: Performed By: #### C BC, ADIFF, MG, GFR, ANEU, CMP ####[address] [address] Chloride [Moles/Vol] 105 mmol/L Normal 98-107 AO A DM SS Comment on above: Performed By: #### C BC, ADIFF, MG, GFR, ANEU, CMP ####Jarred [address] [place], [place] [address] CO2 [Moles/Vol] 24 mmol/L Normal 23-31 AO ADM SS Comment on above: Performed By: #### C BC, ADIFF, MG, GFR, ANEU, CMP ####Jarred [address] [place], [place] [address] Creatinine [Mass/Vol] 1.18 mg/dL Normal 0.70-1.30 AO ADM SS Comment on above: Performed By: #### C BC, ADIFF, MG, GFR, ANEU, CMP ####Jarred [address] [place], [place] [address] Electrolyte Balance 11.0 mEq/L Normal 4.0-15.0 AO AD M SS Comment on above: Performed By: #### C BC, ADIFF, MG, GFR, ANEU, CMP ####Jarred [address] [address] Globulin 4.1 G/dL Normal AO ADM SS Comment on above: Performed By: #### C BC, ADIFF, MG, GFR, ANEU, CMP ####Jarred [address] [address] Glucose [Mass/Vol] 80 mg/dL Normal 80-115 AO ADM SS Comment on above: Performed By: #### C BC, ADIFF, MG, GFR, ANEU, CMP ####Jarred [address] [address] Potassium [Moles/Vol] 3.9 mmol/L Normal 3.5-5.1 AO ADM SS Comment on above: Performed By: #### C BC, ADIFF, MG, GFR, ANEU, CMP ####Jarred [address] [place], [place] [address] Sodium [Moles/Vol] 140 mmol/L Normal 136-145 AO ADM SS Comment on above: Performed By: #### C BC, ADIFF, MG, GFR, ANEU, CMP ####Jarred [address] [place], [place] [address] Urea nitrogen [Mass/Vol] 25 mg/dL High 7-18 AO ADM SS Comment on above: Performed By: #### C BC, ADIFF, MG, GFR, ANEU, CMP ####Jarred [address] [place], [place] [address] FT4on 10-02-2023 Free T4 [Mass/Vol] 0.99 ng/dL Normal 0.76-1.46 [facility] ([place]) Comment on above: Performed By: #### F T4, LIPID, A1C, TSH #### Jarred [address] [place], [place] [address] LABORATORYOrdered By: SYSTEM SYSTEM on 10-02-2023 Albumin [...] 10-02-2023 Cholesterol [Mass/Vol] 182 mg/dL Normal 0-200 [facility] Comment on above: Result Comment: Chol esterol Reference Interval: Less than 200 Desirable 200-239 Borderline high risk 240 and above High risk Performed By: #### F T4, LIPID, A1C, TSH #### [address] [address] Cholesterol in HDL [Mass/Vol] 37 mg/dL Low 40-60 [facility] ([place]) Comment on above: Performed By: #### F T4, LIPID, A1C, TSH #### [address] [address] Cholesterol in LDL [Mass/Vol] 80 mg/dL Normal 0-130 [facility] ([place]) Comment on above: Performed By: #### F T4, LIPID, A1C, TSH #### [address] [address] Triglyceride [Mass/Vol] 323 mg/dL High 0-150 A [facility] ([place]) Comment on above: Result Comment: Trig lyceride Reference Interval: Less than 150 Normal 150-199 Borderline high risk 200-499 High risk 500 or higher Very high risk Performed By: #### F T4, LIPID, A1C, TSH #### [address] [address] MGOrdered By: SYSTEM SYSTEM on 10-02-2023 Magnesium [Mass/Vol] 1.9 mg/dL Normal 1.8-2.4 AO A DM SS Comment on above: Performed By: #### C BC, ADIFF, MG, GFR, ANEU, CMP ####Jarred [address] [place], [place] [address] MRI BRAIN W/O CONTRASTon MRI BRAIN W/O [...] 10/02/2023 8:38:30 AM Ordering Provider: CHITO Echevarria [facility] ([place]) TSHon 10-02-2023 TSH Qn 3.31 m[IU]/L Normal 0.36-3.74 [facility] ([place]) Comment on above: Performed By: #### F T4, LIPID, A1C, TSH #### Jarred [address] [address] .Auto Diffon 10-01-2023 Basophil, Absolute 0.1 10 3/mcL Normal 0.0-0.2 [facility] ([place]) Comment on above: Performed By: #### A JORGE, CMP, ADIFF, TROPHS, CBC, GFR, MDW, MG ####Jarred [address] [place], [place] [address] Basophils/100 WBC (Bld) 1.4 % Normal 0.0-2.5 A [facility] ([place]) Comment on above: Performed By: #### A JORGE, CMP, ADIFF, TROPHS, CBC, GFR, MDW, MG ####Jarred [address] [place], [place] [address] Eosinophil, Absolute 0.4 10 3/mcL Normal 0.0-0.4 [facility] ([place]) Comment on above: Performed By: #### A JORGE, CMP, ADIFF, TROPHS, CBC, GFR, MDW, MG ####Jarred [address] [place], [place] [address] Eosinophils/100 WBC (Bld) 3.7 % Normal 0.0-7.0 [facility] ([place]) Comment on above: Performed By: #### A JORGE, CMP, ADIFF, TROPHS, CBC, GFR, MDW, MG ####Jarred [address] [place], [place] [address] Lymphocyte, Absolute 2.5 10 3/mcL Normal 0.8-3.9 [facility] ([place]) Comment on above: Performed By: #### A JORGE, CMP, ADIFF, TROPHS, CBC, GFR, MDW, MG ####Jarred [address] [place], [place] [address] Lymphocytes/100 WBC (Bld) 23.6 % Normal 10.0-50.0 [facility] ([place]) Comment on above: Performed By: #### A JORGE, CMP, ADIFF, TROPHS, CBC, GFR, MDW, MG ####Jarred [address] [place], [place] [address] Monocyte, Absolute 1.0 10 3/mcL Normal 0.2-1.0 [facility] ([place]) Comment on above: Performed By: #### A JORGE, CMP, ADIFF, TROPHS, CBC, GFR, MDW, MG ####Jarred [address] [place], [place] [address] Monocytes/100 WBC (Bld) 9.7 % Normal 1.7-13.0 [facility] ([place]) Comment on above: Performed By: #### A JORGE, CMP, ADIFF, TROPHS, CBC, GFR, MDW, MG ####Jarred [address] [place], [place] [address] Neutrophils/100 WBC (Bld) 61.6 % Normal 37.0-80.0 [facility] ([place]) Comment on above: Performed By: #### A JORGE, CMP, ADIFF, TROPHS, CBC, GFR, MDW, MG ####Jarred [address] [place], [place] [address] .GFRon 10-01-2023 GFR 59 ml/min/1.73sqm Normal [facility] ([place]) Comment on above: Result Comment: GFR Population [...] ADIFF, TROPHS, CBC, GFR, MDW, MG ####Jarred [address] [place], [place] [address] GFR Non- 48 ml/min/1.73sqm Normal [facility] ([place]) Comment on above: Result Comment: GFR Population [...] CMP, ADIFF, TROPHS, CBC, GFR, MDW, MG ####[address] [address] .MDWon 10-01-2023 Monocyte Distribution Width 18.06 Normal 0.00-20.00 [facility] ([place]) Comment on above: Result Comment: For ED adult patients suspected of sepsis, MDW<=20.0 does not rule out sepsis or risk of sepsis Performed By: #### A JORGE, CMP, ADIFF, TROPHS, CBC, GFR, MDW, MG ####[address] [address] .NEUABSon 10-01-2023 Neutrophil, Absolute 6.5 10 3/mcL High 2.9-6.2 [facility] ([place]) Comment on above: Performed By: #### A JORGE, CMP, ADIFF, TROPHS, CBC, GFR, MDW, MG ####[place] [address] CBCon 10-01-2023 Erythrocyte distribution width (RBC) [Ratio] 18.8 % High 11.5-14.5 [facility] ([place]) Comment on above: Performed By: #### A JORGE, CMP, ADIFF, TROPHS, CBC, GFR, MDW, MG #### [address] [address] Hematocrit (Bld) [Volume fraction] 33.8 % Low 42.0-52.0 [facility] ([place]) Comment on above: Performed By: #### A JORGE, CMP, ADIFF, TROPHS, CBC, GFR, MDW, MG #### [address] [address] Hgb 11.0 G/dL Low 14.0-18.0 [facility] ([place]) Comment on above: Performed By: #### A JORGE, CMP, ADIFF, TROPHS, CBC, GFR, MDW, MG #### [address] [address] MCH (RBC) [Entitic mass] 24.3 pg Low 27.0-31.2 [facility] ([place]) Comment on above: Performed By: #### A JORGE, CMP, ADIFF, TROPHS, CBC, GFR, MDW, MG #### [address] [address] MCHC 32.5 G/dL Normal 31.8-35.4 [facility] ([place]) Comment on above: Performed By: #### A JORGE, CMP, ADIFF, TROPHS, CBC, GFR, MDW, MG #### [address] [address] MCV (RBC) [Entitic vol] 74.7 fL Low 80.0-94.0 A [facility] ([place]) Comment on above: Performed By: #### A JORGE, CMP, ADIFF, TROPHS, CBC, GFR, MDW, MG #### [address] [address] Platelet 250 10 3/mcL Normal 130-400 [facility] ([place]) Comment on above: Performed By: #### A JORGE, CMP, ADIFF, TROPHS, CBC, GFR, MDW, MG #### [address] [address] Platelet mean volume (Bld) [Entitic vol] 7.7 fL Normal 7.4-10.4 [facility] ([place]) Comment on above: Performed By: #### A JORGE, CMP, ADIFF, TROPHS, CBC, GFR, MDW, MG #### [address] [address] RBC 4.52 10 6/mcL Normal 4.04-6.13 [facility] ([place]) Comment on above: Performed By: #### A JORGE, CMP, ADIFF, TROPHS, CBC, GFR, MDW, MG #### [address] [address] WBC 10.6 10 3/mcL Normal 4.6-10.8 [facility] ([place]) Comment on above: Performed By: #### A JORGE, CMP, ADIFF, TROPHS, CBC, GFR, MDW, MG #### [address] [place], [place] [address] CMPon 10-01-2023 Albumin Level 3.4 G/dL Normal 3.4-4.8 [facility] ([place]) Comment on above: Performed By: #### A JORGE, CMP, ADIFF, TROPHS, CBC, GFR, MDW, MG ####Jarred [address] [place], [place] [address] Albumin/Globulin [Mass ratio] 0.8 {ratio} Low 1.1-2.5 [facility] ([place]) Comment on above: Performed By: #### A JORGE, CMP, ADIFF, TROPHS, CBC, GFR, MDW, MG ####Jarred [address] [place], [place] [address] ALP [Catalytic activity/Vol] 97 U/L Normal 40-135 [facility] ([place]) Comment on above: Performed By: #### A JORGE, CMP, ADIFF, TROPHS, CBC, GFR, MDW, MG ####Jarred [address] [place], [place] [address] ALT [Catalytic activity/Vol] 24 U/L Normal 16-63 [facility] ([place]) Comment on above: Performed By: #### A JORGE, CMP, ADIFF, TROPHS, CBC, GFR, MDW, MG ####Jarred [address] [place], [place] [address] AST [Catalytic activity/Vol] 19 U/L Normal 10-40 [facility] ([place]) Comment on above: Performed By: #### A JORGE, CMP, ADIFF, TROPHS, CBC, GFR, MDW, MG ####Jarred [address] [place], [place] [address] Bili Total 0.5 mg/dL Normal 0.2-1.0 [facility] ([place]) Comment on above: Result Comment: Use of this assay is not recommended for patients undergoing treatment with eltrombopag due to the potential for falsely elevated results. Performed By: #### A JORGE, CMP, ADIFF, TROPHS, CBC, GFR, MDW, MG ####Jarred [address] [place], [place] [address] BUN/Creatinine Ratio 20 ratio Normal 7-27 [facility] ([place]) Comment on above: Performed By: #### A JORGE, CMP, ADIFF, TROPHS, CBC, GFR, MDW, MG ####Jarred [address] [place], [place] [address] Calcium [Mass/Vol] 8.9 mg/dL Normal 8.4-10.2 [facility] ([place]) Comment on above: Performed By: #### A JORGE, CMP, ADIFF, TROPHS, CBC, GFR, MDW, MG ####Jarred [address] [place], [place] [address] Chloride [Moles/Vol] 104 mmol/L Normal 98-107 [facility] ([place]) Comment on above: Performed By: #### A JORGE, CMP, ADIFF, TROPHS, CBC, GFR, MDW, MG ####Jarred [address] [place], [place] [address] CO2 [Moles/Vol] 22 mmol/L Low 23-31 [facility] ([place]) Comment on above: Performed By: #### A JORGE, CMP, ADIFF, TROPHS, CBC, GFR, MDW, MG ####Jarred [address] [place], [place] [address] Creatinine [Mass/Vol] 1.48 mg/dL High 0.70-1.30 [facility] ([place]) Comment on above: Performed By: #### A JORGE, CMP, ADIFF, TROPHS, CBC, GFR, MDW, MG ####Jarred [address] [place], [place] [address] Electrolyte Balance 12.0 mEq/L Normal 4.0-15.0 [facility] ([place]) Comment on above: Performed By: #### A JORGE, CMP, ADIFF, TROPHS, CBC, GFR, MDW, MG ####[address] [place], [place] [address] Globulin 4.3 G/dL Normal [facility] ([place]) Comment on above: Performed By: #### A JORGE, CMP, ADIFF, TROPHS, CBC, GFR, MDW, MG ####[address] [place], [place] [address] Glucose [Mass/Vol] 151 mg/dL High 80-115 [facility] ([place]) Comment on above: Performed By: #### A JORGE, CMP, ADIFF, TROPHS, CBC, GFR, MDW, MG ####[address] [place], [place] [address] Potassium [Moles/Vol] 4.0 mmol/L Normal 3.5-5.1 [facility] ([place]) Comment on above: Performed By: #### A JORGE, CMP, ADIFF, TROPHS, CBC, GFR, MDW, MG ####[address] [place], [place] [address] Sodium [Moles/Vol] 138 mmol/L Normal 136-145 [facility] ([place]) Comment on above: Performed By: #### A JORGE, CMP, ADIFF, TROPHS, CBC, GFR, MDW, MG ####J[address] [place], [place] [address] Total Protein 7.7 G/dL Normal 6.4-8.2 [facility] ([place]) Comment on above: Performed By: #### A JORGE, CMP, ADIFF, TROPHS, CBC, GFR, MDW, MG ####Jarred [id number] [place], [place] [address] Urea nitrogen [Mass/Vol] 30 mg/dL High 7-18 [facility] ([place]) Comment on above: Performed By: #### A JORGE, CMP, ADIFF, TROPHS, CBC, GFR, MDW, MG ####Jarred [address] [place], [place] [address] LABORATORYOrdered By: Ronald العراقي on 10-01-2023 Appearance [...] ng/L Male: 0-76 ng/L Testing performed on [employer] using a homogeneous sandwich chemiluminescent immunoassay based on [employer] technology. Albumin BCP dye [Mass/Vol] 3.4 G/dL [...] ng/L Male: 0-76 ng/L Testing performed on [employer] using a homogeneous sandwich chemiluminescent immunoassay based on [employer] technology. Urea nitrogen [Mass/Vol] 30 mg/dL High 7 - 18 mg/dL AO ADM SS Urea nitrogen/Creatinine [Mass ratio] 20 ratio Normal 7 - 27 ratio AO ADM SS WBC (Bld) [#/Vol] 10.6 103/mcL Normal 4.6 - 10.8 10^3/mcL AO Workflow SS MGon 10-01-2023 Magnesium [Mass/Vol] 1.8 mg/dL Normal 1.8-2.4 [facility] ([place]) Comment on above: Performed By: #### A JORGE, CMP, ADIFF, TROPHS, CBC, GFR, MDW, MG ####J[address]red [id number] [place], [place] [address] [facility] 10-01-2023 High Sensitivity Troponin I 9 ng/L Normal 0-76 [facility] ([place]) Comment on above: Result Comment: High Sensitive Troponin I Reference Ranges: Female: 0-51 ng/L Male: 0-76 ng/L Testing performed on [employer] using a homogeneous sandwich chemiluminescent immunoassay based on [employer] technology. Performed By: #### [facility] #### Jarred [address] [place], [place] [address] High Sensitivity Troponin I 10 ng/L Normal 0-76 [facility] ([place]) Comment on above: Result Comment: High Sensitive Troponin I Reference Ranges: Female: 0-51 ng/L Male: 0-76 ng/L Testing performed on [employer] using a homogeneous sandwich chemiluminescent immunoassay based on [employer] technology. Performed By: #### A JORGE, CMP, ADIFF, TROPHS, CBC, GFR, MDW, MG ####[address] [place], [place] [address] UAon 10-01-2023 Color (U) Yellow Normal [facility] ([place]) Comment on above: Performed By: #### U A ####[address] [place], [place] [address] Glucose (U) [Mass/Vol] 500 mg/dL Abnormal Negative [facility] ([place]) Comment on above: Performed By: #### U A ####[address] [place], [place] [address] Ketones Ql (U) Negative Normal Negative [facility] ([place]) Comment on above: Performed By: #### U A ####[address] [place], [place] [address] UA Appear Clear Normal Clear [facility] ([place]) Comment on above: Performed By: #### U A ####[address] [place], [place] [address] UA Blood Negative Normal Negative [facility] ([place]) Comment on above: Performed By: #### U A ####[address] [place], [place] [address] UA Leuk Est Negative Normal Negative [facility] ([place]) Comment on above: Performed By: #### U A ####[address] [place], [place] [address] UA Nitrite Negative Normal Negative [facility] ([place]) Comment on above: Performed By: #### U A ####[address] [place], [place] [address] UA pH 5.5 Normal 5.0 - 8.0 [facility] ([place]) Comment on above: Performed By: #### U A ####J[address] [place], [place] [address] UA Protein Negative Normal Negative [facility] ([place]) Comment on above: Performed By: #### U A ####J[address]red [address] [place], [place] [address] UA Spec Grav 1.020 Normal 1.015-1.025 [facility] ([place]) Comment on above: Performed By: #### U A ####J[address]red [address] [place], [place] [address] UA Specimen Type Void Normal [facility] ([place]) Comment on above: Performed By: #### U A ####Jarred [address] [place], [place] [address] UA Urobilinogen 0.2 E.U./dL Normal 0.2-1.0 [facility] ([place]) Comment on above: Performed By: #### U A ####J[address]red [address] [place], [place] [address] Urobilinogen (U) [Mass/Vol] Negative Normal Negative [facility] ([place]) Comment on above: Performed By: #### U A ####Jarred [address] [place], [place] [address] XR CHEST 1 VIEWon 10-01-2023 XR CHEST [...] 10/01/2023 9:13:56 PM Ordering Provider: TITA Echevarria [facility] ([place]) Absolute lymphocyte countOrd ered By: Fany Diaz on 08-05-2023 Lymphocytes Auto (Unsp spec) [#/Vol] 2.02 10*3/uL 0.83-4.51 [facility] Automated lymphocyte count a s percentage of total leukocytesOrdered By: Fany Diaz on 08-05-2023 Lymphocytes/100 WBC Auto (Unsp spec) 22.3 % 19-41 [facility] Basophil percentageOrdered B y: Fany Diaz on 08-05-2023 Basophil percentage 3.9 mg/dL 2.5-4.9 [facility] Basophils/100 WBC (Bld) 0.9 % 0-1 [facility] Chloride [Moles/Vol] 108 mmol/L 98-107 [facility] Eosinophils/100 WBC (Bld) 3.2 % 0-5 [facility] Glucose [Mass/Vol] 158 mg/dL 74-106 [facility] Comment on above: Fasting Glucose resu lt greater than or equal to 126 mg/dL suggests DIABETES MELLITUS per A.D.A. criteria. Hemoglobin (Bld) [Mass/Vol] 11.6 g/dL 13.0-16.5 [facility] Monocytes/100 WBC (Bld) 9.6 % 0-10 [facility] Neutrophils (Bld) [#/Vol] 5.8 10*3/uL 2.0-7.7 [facility] Neutrophils/100 WBC (Bld) 63.6 % 47-70 [facility] Potassium [Moles/Vol] 4.1 mmol/L 3.5-5.1 [facility] Sodium [Moles/Vol] 136 mmol/L 136-145 [facility] WBC (Bld) [#/Vol] 9.1 10*3/uL 4.4-11.0 [facility] Determination of erythrocyte mean corpuscular volume (MCV)Ordered By: Fany Diaz on 08-05-2023 MCV (RBC) [Entitic vol] 77.0 fL 80-94 [facility] Erythrocyte distribution wid th ratioOrdered By: Fany Diaz on 08-05-2023 Erythrocyte distribution width (RBC) [Ratio] 18.6 % 11.6-14.6 [facility] Erythrocyte distribution wid th standard deviationOrdered By: Fany Diaz on 08-05-2023 Erythrocyte distribution width (RBC) [Entitic vol] 51.4 fL 35.1-43.9 [facility] Hematocrit Auto (Bld) [Volum e fraction]Ordered By: Fany Diaz on 08-05-2023 Hematocrit (Bld) [Volume fraction] 38.1 % 40-54 [facility] Immature granulocytes/100 WB C Auto (Bld)Ordered By: [facility] Diaz on 08-05-2023 Immature granulocytes/100 WBC (Bld) 0.400 % 0.0-0.9 [facility] Comment on above: IG% - Immature Granu locytes (promyelocytes, myelocytes and metamyelocytes) > 1% indicates that a LEFT SHIFT is Present. Iron measurement (mass/mass) Ordered By: Fany Diaz on 08-05-2023 Iron (Unsp spec) [Mass/Mass] 42 ug/dL 65-175 [facility] Laboratory - Chemistry and C hemistry - challengeOrdered By: Fany Diaz on 08-05-2023 CO2 [Moles/Vol] 20.0 mmol/L 21.0-32.0 [facility] Ferritin [Mass/Vol] 20 ng/mL 26-388 [facility] Urea nitrogen/Creatinine [Mass ratio] 25.5 mg/mg 10-20 [facility] Laboratory - Hematology and Cell countsOrdered By: Fany Diaz on 08-05-2023 MCH (RBC) [Entitic mass] 23.4 pg 27.0-32.0 [facility] MCHC (RBC) [Mass/Vol] 30.4 g/dL 32-36 [facility] Nucleated RBC/100 WBC (Bld) [Ratio] 0 % 0-5 [facility] Platelet mean volume (Bld) [Entitic vol] 9.8 fL 6.2-12.0 [facility] Platelets (Bld) [#/Vol] 277 10*3/uL 150-450 [facility] No Panel InformationOrdered By: Fany Diaz on 08-05-2023 Estimated GFR (MDRD) Amer 88 mL/min >60 [facility] Comment on above: GFR Calc Estimated GFR (MDRD) Non-Af Amer 73 mL/min >60 [facility] Comment on above: Non- GFR Calc Parathyroid Hormone (Intact) 71.4 pg/mL 18.4-80.1 [facility] Total Iron Binding Capacity 383 ug/dL 250-450 [facility] RBC Auto (Bld) [#/Vol]Ordere d By: Fany Diaz on 08-05-2023 RBC (Bld) [#/Vol] 4.95 10*6/uL 4.6-6.2 [facility] Serum or plasma calcium grazyna urement (mass/volume)Ordered By: Fany Diaz on 08-05-2023 Calcium [Mass/Vol] 9.3 mg/dL 8.5-10.1 [facility] Serum or plasma creatinine m easurement (mass/volume)Ordered By: Fany Diaz on 08-05-2023 Creatinine [Mass/Vol] 1.10 mg/dL 0.70-1.30 [facility] Comment on above: The validity of the calculated GFR & GFRAA in patients over 70 years has not been determined. Clinical correlation is essential. Serum or plasma iron saturat ion measurement (mass fraction)Ordered By: Fany Diaz on 08-05-2023 Iron saturation [Mass fraction] 11.0 % 15.0-55.0 [facility] Serum or plasma urea nitroge n measurement (mass/volume)Ordered By: Fany Diaz on 08-05-2023 Urea nitrogen [Mass/Vol] 28 mg/dL 7-18 [facility] Serum or plasma uric acid me asurement (mass/volume)Ordered By: Fany Diaz on 08-05-2023 Urate [Mass/Vol] 7.3 mg/dL 3.5-7.2 [facility] Comment on above: The drugs N-Acetylcy steine and Metamizole may falsely depress this assay. Thin prep Papanicolaou smear with manual screeningOrdered By: Fany Diaz on 08-05-2023 Protein (U) [Mass/Vol] 25.0 mg/dL 0.0-11.8 [facility] Thin prep Papanicolaou smear with manual screening 3.3 g/dL 3.2-5.0 [facility] Urine creatinine measurement (mass/volume)Ordered By: [facility] Diaz on 08-05-2023 Creatinine (U) [Mass/Vol] 67.40 mg/dL NO RANGE EST. [facility] Urine protein/creatinine mas s ratioOrdered By: [facility] Diaz on 08-05-2023 Protein/Creatinine (U) [Mass ratio] 371 mg/g CRE 0-200 [facility] Basophil percentageOrdered B y: Francois Valiente on 06-06-2023 Creatinine [Mass/Vol] 1.4 mg/dL 0.70-1.30 [facility] Laboratory - Chemistry and C hemistry - challengeOrdered By: Francois Valiente on 06-06-2023 GFR/1.73 sq M.predicted among non-blacks MDRD (S/P/Bld) [Vol rate/Area] 55.0000 mL/min/{1.73_m2} >60 [facility] Laboratory - Hematology and Cell countson 05-20-2023 HbA1c (Bld) [Mass fraction] 7.5 % 4.2-6.3 [facility] Basophil percentageOrdered B y: Oren Sky on 04-25-2023 Bilirubin [Mass/Vol] 0.50 mg/dL 0.20-1.00 [facility] Comment on above: For patients on eltr ombopag therapy, use of Dimension [place] TBIL is not recommended. Chloride [Moles/Vol] 108 mmol/L 98-107 [facility] Glucose [Mass/Vol] 157 mg/dL 74-106 [facility] Comment on above: Fasting Glucose resu lt greater than or equal to 126 mg/dL suggests DIABETES MELLITUS per A.D.A. criteria. Hemoglobin (Bld) [Mass/Vol] 11.5 g/dL 13.0-16.5 [facility] Potassium [Moles/Vol] 3.9 mmol/L 3.5-5.1 [facility] Protein [Mass/Vol] 8.4 g/dL 6.4-8.2 [facility] Sodium [Moles/Vol] 135 mmol/L 136-145 [facility] WBC (Bld) [#/Vol] 10.8 10*3/uL 4.4-11.0 [facility] Determination of erythrocyte mean corpuscular volume (MCV)Ordered By: Oren Sky on 04-25-2023 MCV (RBC) [Entitic vol] 76.0 fL 80-94 [facility] Erythrocyte distribution wid th ratioOrdered By: Oren Sky on 04-25-2023 Erythrocyte distribution width (RBC) [Ratio] 18.6 % 11.6-14.6 [facility] Erythrocyte distribution wid th standard deviationOrdered By: Oren Sky on 04-25-2023 Erythrocyte distribution width (RBC) [Entitic vol] 48.6 fL 35.1-43.9 [facility] Hematocrit Auto (Bld) [Volum e fraction]Ordered By: Oren Sky on 04-25-2023 Hematocrit (Bld) [Volume fraction] 38.0 % 40-54 [facility] Laboratory - Chemistry and C hemistry - challengeOrdered By: Oren Sky on 04-25-2023 Albumin/Globulin [Mass ratio] 0.7 {ratio} 0.9-2.4 [facility] ALP [Catalytic activity/Vol] 102 U/L 45-117 [facility] ALT [Catalytic activity/Vol] 27 U/L 16-61 [facility] CO2 [Moles/Vol] 18.0 mmol/L 21.0-32.0 [facility] Globulin (S) [Mass/Vol] 4.9 g/dL 2.2-4.2 [facility] Natriuretic peptide B (Bld) [Mass/Vol] 13.4 pg/mL 0-100 [facility] Urea nitrogen/Creatinine [Mass ratio] 19.2 mg/mg 10-20 [facility] Laboratory - Hematology and Cell countsOrdered By: Oren Sky on 04-25-2023 MCH (RBC) [Entitic mass] 23.0 pg 27.0-32.0 [facility] MCHC (RBC) [Mass/Vol] 30.3 g/dL 32-36 [facility] Platelets (Bld) [#/Vol] 289 10*3/uL 150-450 [facility] No Panel InformationOrdered By: Oren Sky on 04-25-2023 Estimated GFR (MDRD) Amer 73 mL/min >60 [facility] Comment on above: GFR Calc Estimated GFR (MDRD) Non-Af Amer 60 mL/min >60 [facility] Comment on above: Non- GFR Calc Platelet mean volume Deon-Ec ker (Bld) [Entitic vol]Ordered By: Oren Sky on 04-25-2023 Platelet mean volume (Bld) [Entitic vol] 9.7 fL 6.2-12.0 [facility] RBC Auto (Bld) [#/Vol]Ordere d By: Oren Sky on 04-25-2023 RBC (Bld) [#/Vol] 5.00 10*6/uL 4.6-6.2 [facility] Serum or plasma calcium grazyna urement (mass/volume)Ordered By: Oren Sky on 04-25-2023 Calcium [Mass/Vol] 9.2 mg/dL 8.5-10.1 [facility] Serum or plasma creatinine m easurement (mass/volume)Ordered By: Oren Sky on 04-25-2023 Creatinine [Mass/Vol] 1.30 mg/dL 0.70-1.30 [facility] Comment on above: The validity of the calculated GFR & GFRAA in patients over 70 years has not been determined. Clinical correlation is essential. Serum or plasma thyroid stim ulating hormone (TSH) measurement (units/volume)Ordered By: Oren Sky on 04-25-2023 TSH Qn 1.74 uIU/mL 0.358-3.74 [facility] Serum or plasma urea nitroge n measurement (mass/volume)Ordered By: Oren Sky on 04-25-2023 Urea nitrogen [Mass/Vol] 25 mg/dL 7-18 [facility] Thin prep Papanicolaou smear with manual screeningOrdered By: Oren Sky on 04-25-2023 Thin prep Papanicolaou smear with manual screening 3.5 g/dL 3.2-5.0 [facility] Thin prep Papanicolaou smear with manual screening 17 U/L 15-37 [facility] Thin prep Papanicolaou smear with manual screening 9 5-15 [facility] Laboratory - Chemistry and C hemistry - challengeOrdered By: Jessica Gerardo on 02-26-2023 Free T4 [Mass/Vol] 0.85 ng/dL 0.76-1.46 [facility] No Panel InformationOrdered By: Jessica Gerardo on 02-26-2023 Thyroid Stimulating Hormone (TSH) 8.76 uIU/mL 0.358-3.74 [facility] Basophil percentageOrdered B y: Fany Diaz on 01-15-2023 Basophil percentage 2.8 mg/dL 2.5-4.9 [facility] Chloride [Moles/Vol] 107 mmol/L 98-107 [facility] Glucose [Mass/Vol] 74 mg/dL 74-106 [facility] Potassium [Moles/Vol] 3.2 mmol/L 3.5-5.1 [facility] Sodium [Moles/Vol] 139 mmol/L 136-145 [facility] Laboratory - Chemistry and C hemistry - challengeOrdered By: Fany Diaz on 01-15-2023 CO2 [Moles/Vol] 24.0 mmol/L 21.0-32.0 [facility] Urea nitrogen/Creatinine [Mass ratio] 10.2 mg/mg 10-20 [facility] No Panel InformationOrdered By: Fany Diaz on 01-15-2023 Estimated GFR (MDRD) Amer 74 mL/min >60 [facility] Comment on above: GFR Calc Estimated GFR (MDRD) Non-Af Amer 61 mL/min >60 [facility] Comment on above: Non- GFR Calc Serum or plasma albumin grazyna urement (mass/volume)Ordered By: Fany Diaz on 01-15-2023 Albumin [Mass/Vol] 3.2 g/dL 3.2-5.0 [facility] Serum or plasma calcium grazyna urement (mass/volume)Ordered By: Fany Diaz on 01-15-2023 Calcium [Mass/Vol] 8.7 mg/dL 8.5-10.1 [facility] Serum or plasma creatinine m easurement (mass/volume)Ordered By: Fany Diaz on 01-15-2023 Creatinine [Mass/Vol] 1.28 mg/dL 0.70-1.30 [facility] Comment on above: The validity of the calculated GFR & GFRAA in patients over 70 years has not been determined. Clinical correlation is essential. Serum or plasma urea nitroge n measurement (mass/volume)Or[facility] By: [facility] 01-[facility]-2023 Urea nitrogen [Mass/Vol] 13 mg/dL 7-18 [facility] Urine creatinine measurement (mass/volume)Ordered By: [facility] on 01-15-2023 Creatinine (U) [Mass/Vol] 73.90 mg/dL NO RANGE EST. [facility] Urine protein measurement (m ass/volume)Ordered By: [facility] on 01-15-2023 Protein (U) [Mass/Vol] 16.2 mg/dL 0.0-11.8 [facility] Urine protein/creatinine mas s ratioOrdered By: [facility] on 01-15-2023 Protein/Creatinine (U) [Mass ratio] 219 mg/g CRE 0-200 [facility] Absolute lymphocyte countOrd ered By: [facility] on 12-31-2022 Lymphocytes Auto (Unsp spec) [#/Vol] 1.76 10*3/uL 0.83-4.51 [facility] Basophil percentageOrdered B y: [facility] on 12-31-2022 Basophil percentage 3.7 mg/dL 2.5-4.9 [facility] Basophils/100 WBC (Bld) 0.6 % 0-1 [facility] Chloride [Moles/Vol] 107 mmol/L 98-107 [facility] Eosinophils/100 WBC (Bld) 2.3 % 0-5 [facility] Glucose [Mass/Vol] 117 mg/dL 74-106 [facility] Comment on above: Fasting Glucose resu lt from 100 to 125 mg/dL suggests IMPAIRED HOMEOSTASIS per A.D.A. criteria. Neutrophils (Bld) [#/Vol] 7.8 10*3/uL 2.0-7.7 [facility] Neutrophils/100 WBC (Bld) 72.0 % 47-70 [facility] Potassium [Moles/Vol] 3.8 mmol/L 3.5-5.1 [facility] Sodium [Moles/Vol] 138 mmol/L 136-145 [facility] WBC (Bld) [#/Vol] 10.9 10*3/uL 4.4-11.0 [facility] Bilirubin Test strip Ql (U)O rdered By: Fany Diaz on 12-31-2022 Bilirubin Ql (U) Negative Negative [facility] Blood erythrocytes count (nu mber/volume)Ordered By: Fany Diaz on 12-31-2022 RBC (Bld) [#/Vol] 4.20 10*6/uL 4.6-6.2 [facility] Blood hemoglobin measurement (mass/volume)Ordered By: Fany Diaz on 12-31-2022 Hemoglobin (Bld) [Mass/Vol] 10.8 g/dL 13.0-16.5 [facility] Blood lymphocytes/100 leukoc ytesOrdered By: Fany Diaz on 12-31-2022 Lymphocytes/100 WBC (Bld) 16.1 % 19-41 [facility] Blood monocytes/100 leukocyt esOrdered By: Fany Diaz on 12-31-2022 Monocytes/100 WBC (Bld) 8.5 % 0-10 [facility] Blood platelet mean volumeOr dered By: Fany Diaz on 12-31-2022 Platelet mean volume (Bld) [Entitic vol] 10.1 fL 6.2-12.0 [facility] Determination of erythrocyte mean corpuscular volume (MCV)Ordered By: Fany Diaz on 12-31-2022 MCV (RBC) [Entitic vol] 82.4 fL 80-94 [facility] Hematocrit Auto (Bld) [Volum e fraction]Ordered By: Fany Diaz on 12-31-2022 Hematocrit (Bld) [Volume fraction] 34.6 % 40-54 [facility] Iron measurement (mass/mass) Ordered By: Fany Diaz on 12-31-2022 Iron (Unsp spec) [Mass/Mass] 37 ug/dL 65-175 [facility] Ketones Test strip Ql (U)Ord ered By: Fany Diaz on 12-31-2022 Ketones Ql (U) Negative Negative [facility] Laboratory - Chemistry and C hemistry - challengeOrdered By: Fany Diaz on 12-31-2022 Albumin [Mass/Vol] 3.4 g/dL 2.9-4.4 [facility] CO2 [Moles/Vol] 22.0 mmol/L 21.0-32.0 [facility] Urea nitrogen/Creatinine [Mass ratio] 21.4 mg/mg 10-20 [facility] Laboratory - Hematology and Cell countsOrdered By: Fany Diaz on 12-31-2022 Erythrocyte distribution width (RBC) [Entitic vol] 50.4 fL 35.1-43.9 [facility] Erythrocyte distribution width (RBC) [Ratio] 16.8 % 11.6-14.6 [facility] Immature granulocytes/100 WBC (Bld) 0.500 % 0.0-0.9 [facility] Comment on above: IG% - Immature Granu locytes (promyelocytes, myelocytes and metamyelocytes) > 1% indicates that a LEFT SHIFT is Present. MCH (RBC) [Entitic mass] 25.7 pg 27.0-32.0 [facility] Nucleated RBC/100 WBC (Bld) [Ratio] 0 % 0-5 [facility] MCHC Auto (RBC) [Mass/Vol]Or dered By: Fany Diaz on 12-31-2022 MCHC (RBC) [Mass/Vol] 31.2 g/dL 32-36 [facility] Nitrite Test strip Ql (U)Ord ered By: Fany Diaz on 12-31-2022 Nitrite Ql (U) Negative Negative [facility] No Panel InformationOrdered By: Fany Diaz on 12-31-2022 Addendum Document Comment . [facility] Comment on above: The SPE pattern refl ects a polyclonal increase in gammaglobulin. Hypergammaglobulinemia is found in a wide varietyof infectious, non-infectious, and autoimmune diseasestates. Evidence of monoclonal protein is not apparent. Rwyfc-3-Fddslttyt 0.2 g/dL 0.0-0.4 [facility] Oyebb-7-Ycgrfivxt 0.9 g/dL 0.4-1.0 [facility] Estimated GFR (MDRD) Amer 75 mL/min >60 [facility] Comment on above: GFR Calc Estimated GFR (MDRD) Non-Af Amer 62 mL/min >60 [facility] Comment on above: Non- GFR Calc Gamma Globulins 1.9 g/dL 0.4-1.8 [facility] Total Iron Binding Capacity 355 ug/dL 250-450 [facility] Vitamin D 25-Hydroxy 33.7 ng/mL [facility] Comment on above: Vitamin D 25(OH) Sta tus Range Deficiency <20 ng/mL (50nmol/L) Insufficiency 20 - 30 ng/mL (50 - 75 nmol/L) Sufficiency 30 - 100 ng/mL (75 - 250 nmol/L) Toxicity >100 ng/mL (>250 nmol/L) Platelets bldOrdered By: Roxi Diaz on 12-31-2022 Platelets (Bld) [#/Vol] 265 10*3/uL 150-450 [facility] Protein Fractions Elph [Inte rp]Ordered By: Fany Diaz on 12-31-2022 Protein Fractions [Interp] Comment . [facility] Comment on above: Protein electrophore sis scan will follow via computer,mail, or senior consulting manager delivery. Protein Test strip Ql (U)Ord ered By: Fany Diaz on 12-31-2022 Protein Ql (U) 15 mg/dl Negative [facility] Serum albumin to globulin ra balaji by protein electrophoresisOrdered By: Fany Diaz on 12-31-2022 Albumin/Globulin Elph [Mass ratio] 0.8 0.7-1.7 [facility] Serum globulin measurement ( mass/volume)Ordered By: Fany Diaz on 12-31-2022 Globulin (S) [Mass/Vol] 4.1 g/dL 2.2-3.9 [facility] Serum or plasma albumin grazyna urement (mass/volume)Ordered By: Fany Diaz on 12-31-2022 Albumin [Mass/Vol] 3.3 g/dL 3.2-5.0 [facility] Serum or plasma beta globuli n measurement by electrophoresis (mass/volume)Ordered By: Fany Diaz on 12-31-2022 Beta globulin Elph [Mass/Vol] 1.1 g/dL 0.7-1.3 [facility] Serum or plasma calcium grazyna urement (mass/volume)Ordered By: Fany Diaz on 12-31-2022 Calcium [Mass/Vol] 8.7 mg/dL 8.5-10.1 [facility] Serum or plasma complement C 3 measurement (mass/volume)Ordered By: Fany Diaz on 12-31-2022 Complement C3 [Mass/Vol] 159 mg/dL 82-167 [facility] Comment on above: Performed at: [address] [id number] Director: Chance Morales PhD, Phone: [phone] Serum or plasma complement C 4 measurement (mass/volume)Ordered By: Fany Diaz on 12-31-2022 Complement C4 [Mass/Vol] 26 mg/dL 12-38 [facility] Serum or plasma creatinine m easurement (mass/volume)Ordered By: Fany Diaz on 12-31-2022 Creatinine [Mass/Vol] 1.26 mg/dL 0.70-1.30 [facility] Comment on above: The validity of the calculated GFR & GFRAA in patients over 70 years has not been determined. Clinical correlation is essential. Serum or plasma ferritin elizabeth surement (mass/volume)Ordered By: Fany Diaz on 12-31-2022 Ferritin [Mass/Vol] 37 ng/mL 26-388 [facility] Serum or plasma iron saturat ion measurement (mass fraction)Ordered By: Fany Diaz on 12-31-2022 Iron saturation [Mass fraction] 10.4 % 15.0-55.0 [facility] Serum or plasma urea nitroge n measurement (mass/volume)Ordered By: Fany Diaz on 12-31-2022 Urea nitrogen [Mass/Vol] 27 mg/dL 7-18 [facility] Serum or plasma uric acid me asurement (mass/volume)Ordered By: Fany Diaz on 12-31-2022 Urate [Mass/Vol] 8.2 mg/dL 3.5-7.2 [facility] Comment on above: The drugs N-Acetylcy steine and Metamizole may falsely depress this assay. Thin prep Papanicolaou smear with manual screeningOrdered By: Fany Diaz on 10-02-2023 Thin prep Papanicolaou smear with manual screening See comment [facility] Comment on above: NOT OBSERVED Total protein bloodOrdered B y: Fany Diaz on 12-31-2022 Protein [Mass/Vol] 7.5 g/dL 6.0-8.5 [facility] Urine blood detectionOrdered By: Fany Diaz on 12-31-2022 RBC Ql (U) Negative Negative [facility] Urine clarityOrdered By: Roxi Diaz on 12-31-2022 Clarity (U) Sl. Cloudy Clear [facility] Urine color determinationOrd ered By: Fany Diaz on 12-31-2022 Color (U) Yellow Yellow [facility] Urine creatinine measurement (mass/volume)Ordered By: Fany Diaz on 12-31-2022 Creatinine (U) [Mass/Vol] 95.50 mg/dL NO RANGE EST. [facility] Urine glucose detectionOrder ed By: Fany Diaz on 12-31-2022 Glucose Ql (U) Normal mg/dl Normal [facility] Urine leukocyte esterase det ection by dipstickOrdered By: Fany Diaz on 12-31-2022 Leukocyte esterase Test strip Ql (U) Negative Negative [facility] Urine pHOrdered By: Fany Diaz on 12-31-2022 pH (U) 5.0 [pH] 5.0 - 8.0 [facility] Urine protein measurement (m ass/volume)Ordered By: Fany Diaz on 12-31-2022 Protein (U) [Mass/Vol] 15.7 mg/dL 0.0-11.8 [facility] Urine specific gravity measu rementOrdered By: Fany Diaz on 12-31-2022 Specific gravity (U) [Rel density] 1.015 1.002-1.030 [facility] Urobilinogen Auto test strip Ql (U)Ordered By: Fany Diaz on 12-31-2022 Urobilinogen Ql (U) Normal mg/dl Normal [facility] Laboratory - Hematology and Cell countson 12-10-2022 HbA1c (Bld) [Mass fraction] 7.1 % 4.2-6.3 [facility] Laboratory - Chemistry and C hemistry - challengeOrdered By: Brandt Talleyke on 11-07-2022 Natriuretic peptide B (Bld) [Mass/Vol] 9.7 pg/mL 0-100 [facility] T4 [Mass/Vol] 10.9 ug/dL 4.5-12.1 [facility] No Panel InformationOrdered By: [facility] on 11-07-2022 Thyroid Stimulating Hormone (TSH) 0.27 uIU/mL 0.358-3.74 [facility] Total Triiodothyronine 1.16 ng/mL 0.6-1.81 [facility] Absolute lymphocyte countOrd ered By: [facility] on 10-31-2022 Lymphocytes Auto (Unsp spec) [#/Vol] 1.83 10*3/uL 0.83-4.51 [facility] Basophil percentageOrdered B y: Brandt Talleyke on 10-31-2022 Basophils/100 WBC (Bld) 0.6 % 0-1 [facility] Bilirubin [Mass/Vol] 0.60 mg/dL 0.20-1.00 [facility] Comment on above: For patients on eltr ombopag therapy, use of Dimension [place] TBIL is not recommended. Chloride [Moles/Vol] 107 mmol/L 98-107 [facility] Eosinophils/100 WBC (Bld) 3.8 % 0-5 [facility] Glucose [Mass/Vol] 119 mg/dL 74-106 [facility] Comment on above: Fasting Glucose resu lt from 100 to 125 mg/dL suggests IMPAIRED HOMEOSTASIS per A.D.A. criteria. Neutrophils (Bld) [#/Vol] 4.7 10*3/uL 2.0-7.7 [facility] Neutrophils/100 WBC (Bld) 59.2 % 47-70 [facility] Potassium [Moles/Vol] 4.9 mmol/L 3.5-5.1 [facility] Protein [Mass/Vol] 8.9 g/dL 6.4-8.2 [facility] Sodium [Moles/Vol] 135 mmol/L 136-145 [facility] WBC (Bld) [#/Vol] 7.9 10*3/uL 4.4-11.0 [facility] Blood erythrocytes count (nu mber/volume)Ordered By: Brandt Winter on 10-31-2022 RBC (Bld) [#/Vol] 3.94 10*6/uL 4.6-6.2 [facility] Blood hemoglobin measurement (mass/volume)Ordered By: Brandt Winter on 10-31-2022 Hemoglobin (Bld) [Mass/Vol] 10.4 g/dL 13.0-16.5 [facility] Blood lymphocytes/100 leukoc ytesOrdered By: Brandt Winter on 10-31-2022 Lymphocytes/100 WBC (Bld) 23.2 % 19-41 [facility] Blood monocytes/100 leukocyt esOrdered By: Brandt Winter on 10-31-2022 Monocytes/100 WBC (Bld) 12.7 % 0-10 [facility] Blood platelet mean volumeOr dered By: Brandt Winter on 10-31-2022 Platelet mean volume (Bld) [Entitic vol] 10.2 fL 6.2-12.0 [facility] Determination of erythrocyte mean corpuscular volume (MCV)Ordered By: Brandt Winter on 10-31-2022 MCV (RBC) [Entitic vol] 81.0 fL 80-94 [facility] Hematocrit Auto (Bld) [Volum e fraction]Ordered By: Brandt Winter on 10-31-2022 Hematocrit (Bld) [Volume fraction] 31.9 % 40-54 [facility] Iron measurement (mass/mass) Ordered By: Brandt Winter on 10-31-2022 Iron (Unsp spec) [Mass/Mass] 35 ug/dL 65-175 [facility] Laboratory - Chemistry and C hemistry - challengeOrdered By: [facility] on 10-31-2022 ALP [Catalytic activity/Vol] 103 U/L 45-117 [facility] ALT [Catalytic activity/Vol] 24 U/L 16-61 [facility] CO2 [Moles/Vol] 19.0 mmol/L 21.0-32.0 [facility] Globulin (S) [Mass/Vol] 5.8 g/dL 2.2-4.2 [facility] Urea nitrogen/Creatinine [Mass ratio] 27.0 mg/mg 10-20 [facility] Laboratory - Hematology and Cell countsOrdered By: Brandt Winter on 10-31-2022 Erythrocyte distribution width (RBC) [Entitic vol] 49.3 fL 35.1-43.9 [facility] Erythrocyte distribution width (RBC) [Ratio] 16.7 % 11.6-14.6 [facility] Immature granulocytes/100 WBC (Bld) 0.500 % 0.0-0.9 [facility] Comment on above: IG% - Immature Granu locytes (promyelocytes, myelocytes and metamyelocytes) > 1% indicates that a LEFT SHIFT is Present. MCH (RBC) [Entitic mass] 26.4 pg 27.0-32.0 [facility] Nucleated RBC/100 WBC (Bld) [Ratio] 0 % 0-5 [facility] MCHC Auto (RBC) [Mass/Vol]Or dered By: Brandt Winter on 10-31-2022 MCHC (RBC) [Mass/Vol] 32.6 g/dL 32-36 [facility] No Panel InformationOrdered By: Brandt Winter on 10-31-2022 Estimated GFR (MDRD) Amer 61 mL/min >60 [facility] Comment on above: GFR Calc Estimated GFR (MDRD) Non-Af Amer 50 mL/min >60 [facility] Comment on above: Non- GFR Calc Thyroid Stimulating Hormone (TSH) 0.23 uIU/mL 0.358-3.74 [facility] Total Iron Binding Capacity 274 ug/dL 250-450 [facility] Vitamin D 25-Hydroxy 12.1 ng/mL [facility] Comment on above: Vitamin D 25(OH) Sta tus Range Deficiency <20 ng/mL (50nmol/L) Insufficiency 20 - 30 ng/mL (50 - 75 nmol/L) Sufficiency 30 - 100 ng/mL (75 - 250 nmol/L) Toxicity >100 ng/mL (>250 nmol/L) Platelets bldOrdered By: Ximena Winter on 10-31-2022 Platelets (Bld) [#/Vol] 253 10*3/uL 150-450 [facility] Serum or plasma albumin grazyna urement (mass/volume)Ordered By: Brandt Winter on 10-31-2022 Albumin [Mass/Vol] 3.1 g/dL 3.2-5.0 [facility] Serum or plasma albumin/glob ulin mass ratioOrdered By: Brandt Winter on 10-31-2022 Albumin/Globulin [Mass ratio] 0.5 {ratio} 0.9-2.4 [facility] Serum or plasma calcium grazyna urement (mass/volume)Ordered By: Brandt Winetr on 10-31-2022 Calcium [Mass/Vol] 9.1 mg/dL 8.5-10.1 [facility] Serum or plasma creatinine m easurement (mass/volume)Ordered By: Brandt Winter on 10-31-2022 Creatinine [Mass/Vol] 1.52 mg/dL 0.70-1.30 [facility] Comment on above: The validity of the calculated GFR & GFRAA in patients over 70 years has not been determined. Clinical correlation is essential. Serum or plasma ferritin elizabeth surement (mass/volume)Ordered By: Brandt Winter on 10-31-2022 Ferritin [Mass/Vol] 158 ng/mL 26-388 [facility] Serum or plasma iron saturat ion measurement (mass fraction)Ordered By: Brandt Winter on 10-31-2022 Iron saturation [Mass fraction] 12.8 % 15.0-55.0 [facility] Serum or plasma urea nitroge n measurement (mass/volume)Ordered By: Brandt Winter on 10-31-2022 Urea nitrogen [Mass/Vol] 41 mg/dL 7-18 [facility] Thin prep Papanicolaou smear with manual screeningOrdered By: Brandt Winter on 10-31-2022 Thin prep Papanicolaou smear with manual screening 22 U/L 15-37 [facility] Thin prep Papanicolaou smear with manual screening 9 5-15 [facility] Glucose Glucometer (BldC) [M ass/Vol]Ordered By: Dr. Ospina on 08-03-2022 Glucose [Mass/Vol] 343 mg/dL 74-106 [facility] Comment on above: MANAGEMENT OF PATIEN T CARE PER NURSING PROTOCOL Absolute lymphocyte countOrd ered By: Dr. Bell on 08-02-2022 Lymphocytes Auto (Unsp spec) [#/Vol] 1.27 10*3/uL 0.83-4.51 [facility] Basophil percentageOrdered B y: Dr. Bell on 08-02-2022 Basophils/100 WBC (Bld) 0.8 % 0-1 [facility] Bilirubin [Mass/Vol] 0.50 mg/dL 0.20-1.00 [facility] Comment on above: For patients on eltr ombopag therapy, use of Dimension [place] TBIL is not recommended. Chloride [Moles/Vol] 104 mmol/L 98-107 [facility] Cholesterol [Mass/Vol] 133 mg/dL <200 [facility] Comment on above: <200 mg/dL Desirable 200-240 mg/dL Borderline >240 mg/dL High Risk Eosinophils/100 WBC (Bld) 3.1 % 0-5 [facility] Glucose [Mass/Vol] 280 mg/dL 74-106 [facility] Comment on above: Glucose result great er than or equal to 200 mg/dLsuggests DIABETES MELLITUS per A.D.A. criteria. Neutrophils (Bld) [#/Vol] 3.5 10*3/uL 2.0-7.7 [facility] Neutrophils/100 WBC (Bld) 59.7 % 47-70 [facility] Potassium [Moles/Vol] 4.0 mmol/L 3.5-5.1 [facility] Protein [Mass/Vol] 7.6 g/dL 6.4-8.2 [facility] Sodium [Moles/Vol] 135 mmol/L 136-145 [facility] Triglyceride [Mass/Vol] 300 mg/dL <199 [facility] Comment on above: The drugs N-Acetylcy steine and Metamizole may falsely depress this assay.Serum Triglycerides Reference Interval Normal <150 mg/dL Borderline high 150 - 199 mg/dL High 200 - 499 mg/dL Very High > or = 500 mg/dL WBC (Bld) [#/Vol] 5.9 10*3/uL 4.4-11.0 [facility] Blood erythrocytes count (nu mber/volume)Ordered By: Dr. Bell on 08-02-2022 RBC (Bld) [#/Vol] 4.27 10*6/uL 4.6-6.2 [facility] Blood hemoglobin measurement (mass/volume)Ordered By: Dr. Bell on 08-02-2022 Hemoglobin (Bld) [Mass/Vol] 10.7 g/dL 13.0-16.5 [facility] Blood lymphocytes/100 leukoc ytesOrdered By: Dr. Bell on 08-02-2022 Lymphocytes/100 WBC (Bld) 21.5 % 19-41 [facility] Blood monocytes/100 leukocyt esOrdered By: Dr. Bell on 08-02-2022 Monocytes/100 WBC (Bld) 14.4 % 0-10 [facility] Blood platelet mean volumeOr dered By: Dr. Bell on 08-02-2022 Platelet mean volume (Bld) [Entitic vol] 9.9 fL 6.2-12.0 [facility] Determination of erythrocyte mean corpuscular volume (MCV)Ordered By: Dr. Bell on 08-02-2022 MCV (RBC) [Entitic vol] 78.9 fL 80-94 [facility] Hematocrit Auto (Bld) [Volum e fraction]Ordered By: Dr. Bell on 08-02-2022 Hematocrit (Bld) [Volume fraction] 33.7 % 40-54 [facility] Laboratory - Chemistry and C hemistry - challengeOrdered By: Dr. Bell on 08-02-2022 ALP [Catalytic activity/Vol] 118 U/L 45-117 [facility] ALT [Catalytic activity/Vol] 25 U/L 16-61 [facility] CO2 [Moles/Vol] 20.0 mmol/L 21.0-32.0 [facility] Globulin (S) [Mass/Vol] 4.4 g/dL 2.2-4.2 [facility] Urea nitrogen/Creatinine [Mass ratio] 21.7 mg/mg 10-20 [facility] Laboratory - Hematology and Cell countsOrdered By: Dr. Bell on 08-02-2022 Erythrocyte distribution width (RBC) [Entitic vol] 46.5 fL 35.1-43.9 [facility] Erythrocyte distribution width (RBC) [Ratio] 16.4 % 11.6-14.6 [facility] Immature granulocytes/100 WBC (Bld) 0.500 % 0.0-0.9 [facility] Comment on above: IG% - Immature Granu locytes (promyelocytes, myelocytes and metamyelocytes) > 1% indicates that a LEFT SHIFT is Present. MCH (RBC) [Entitic mass] 25.1 pg 27.0-32.0 [facility] Nucleated RBC/100 WBC (Bld) [Ratio] 0 % 0-5 [facility] MCHC Auto (RBC) [Mass/Vol]Or dered By: Dr. Bell on 08-02-2022 MCHC (RBC) [Mass/Vol] 31.8 g/dL 32-36 [facility] No Panel InformationOrdered By: Dr. Bell on 08-02-2022 Estimated Creatinine Clearance Calc 83.01 ml/min [facility] Estimated GFR (MDRD) Amer 102 mL/min >60 [facility] Comment on above: GFR Calc Estimated GFR (MDRD) Non-Af Amer 84 mL/min >60 [facility] Comment on above: Non- GFR Calc Thyroid Stimulating Hormone (TSH) 1.36 uIU/mL 0.358-3.74 [facility] Platelets bldOrdered By: Dr. Bell on 08-02-2022 Platelets (Bld) [#/Vol] 193 10*3/uL 150-450 [facility] Serum or plasma albumin grazyna urement (mass/volume)Ordered By: Dr. Bell on 08-02-2022 Albumin [Mass/Vol] 3.2 g/dL 3.2-5.0 [facility] Serum or plasma albumin/glob ulin mass ratioOrdered By: Dr. Bell on 08-02-2022 Albumin/Globulin [Mass ratio] 0.7 {ratio} 0.9-2.4 [facility] Serum or plasma calcium grazyna urement (mass/volume)Ordered By: Dr. Bell on 08-02-2022 Calcium [Mass/Vol] 9.0 mg/dL 8.5-10.1 [facility] Serum or plasma cholesterol in HDL measurement (mass/volume)Ordered By: Dr. Bell on 08-02-2022 Cholesterol in HDL [Mass/Vol] 33 mg/dL >40 [facility] Comment on above: The drugs N-Acetylcy steine and Metamizole may falsely depress this assay. Reference Range HDL <40 mg/dL Low HDL Cholesterol HDL >or= 60 mg/dL High HDL Cholesterol Serum or plasma cholesterol in VLDL measurement (mass/volume)Ordered By: Dr. Bell on 08-02-2022 Cholesterol in VLDL [Mass/Vol] 60 mg/dL 5-40 [facility] Serum or plasma creatinine m easurement (mass/volume)Ordered By: Dr. Bell on 08-02-2022 Creatinine [Mass/Vol] 0.97 mg/dL 0.70-1.30 [facility] Comment on above: The validity of the calculated GFR & GFRAA in patients over 70 years has not been determined. Clinical correlation is essential. Serum or plasma low density lipoprotein (LDL) cholesterol measurement (mass/volume)Ordered By: Dr. Bell on 08-02-2022 Cholesterol in LDL [Mass/Vol] 40 mg/dL 0-130 [facility] Serum or plasma urea nitroge n measurement (mass/volume)Ordered By: Dr. Bell on 08-02-2022 Urea nitrogen [Mass/Vol] 21 mg/dL 7-18 [facility] Thin prep Papanicolaou smear with manual screeningOrdered By: Dr. Bell on 08-02-2022 Thin prep Papanicolaou smear with manual screening 18 U/L 15-37 [facility] Thin prep Papanicolaou smear with manual screening 11 5-15 [facility] Whole blood hemoglobin A1c/t otal hemoglobin ratio (mass fraction)Ordered By: Dr. Bell on 08-02-2022 HbA1c (Bld) [Mass fraction] 9.6 % 3.8-5.6 [facility] Comment on above: Normal < 5.7 % Predi abetic 5.7 - 6.4 % Diabetic >or= 6.5 % Please note range changes. INR in Blood by Coagulation assayOrdered By: ED PROVIDER on 08-01-2022 INR Coag (Bld) [Relative time] 1.1 {INR} [facility] Laboratory - Chemistry and C hemistry - challengeOrdered By: Dr. Bell on 08-01-2022 Magnesium [Mass/Vol] 1.7 mg/dL 1.6-2.6 [facility] Laboratory - CoagulationOrde red By: ED PROVIDER on 08-01-2022 aPTT Coag (Bld) [Time] 28.7 s 24.1-36.2 [facility] PT Coag (PPP) [Time] 13.8 s 11.7-14.9 [facility] No Panel InformationOrdered By: Dr. Hill on 08-01-2022 Troponin I High Sensitivity 9 pg/mL 3.0-78.0 [facility] Comment on above: Please Note: New Karly t Units and Gender Specific Reference Ranges. For more information see Policy Stat Procedure [place] High Sensitivity Troponin (TNIH) and attachments. Basophil percentageOrdered B y: Oren Sky on 06-26-2022 Chloride [Moles/Vol] 104 mmol/L 98-107 [facility] Glucose [Mass/Vol] 224 mg/dL 74-106 [facility] Comment on above: Glucose result great er than or equal to 200 mg/dLsuggests DIABETES MELLITUS per A.D.A. criteria. Potassium [Moles/Vol] 4.6 mmol/L 3.5-5.1 [facility] Sodium [Moles/Vol] 134 mmol/L 136-145 [facility] Basophil percentageOrdered B y: Jessica Gerardo on 06-26-2022 Cholesterol [Mass/Vol] 145 mg/dL <200 [facility] Comment on above: <200 mg/dL Desirable 200-240 mg/dL Borderline >240 mg/dL High Risk Testosterone [Mass/Vol] 122 ng/dL 264-916 [facility] Comment on above: Adult male reference interval is based on a population ofhealthy nonobese males (BMI <30) between 19 and 39 yearsold. Dina, et.al. JCEM 2017,102;[id number]. PMID:[id number]. Triglyceride [Mass/Vol] 271 mg/dL <199 [facility] Comment on above: The drugs N-Acetylcy steine and Metamizole may falsely depress this assay.Serum Triglycerides Reference Interval Normal <150 mg/dL Borderline high 150 - 199 mg/dL High 200 - 499 mg/dL Very High > or = 500 mg/dL Free testosterone percentage Ordered By: Jessica Gerardo on 06-26-2022 Testosterone Free/Testosterone.total [Mass fraction] 3.10 % 1.50-4.20 [facility] Comment on above: Performed at: [address] [id number] Director: Chance Morales PhD, Phone: [phone] at: [facility] [id number] Director: Rhina Norris MD, Phone: [phone] Laboratory - Chemistry and C hemistry - challengeOrdered By: Oren Sky on 06-26-2022 CO2 [Moles/Vol] 23.0 mmol/L 21.0-32.0 [facility] Urea nitrogen/Creatinine [Mass ratio] 30.7 mg/mg 10-20 [facility] Laboratory - Chemistry and C hemistry - challengeOrdered By: Jessica Gerardo on 06-26-2022 Free T4 [Mass/Vol] 1.33 ng/dL 0.76-1.46 [facility] No Panel InformationOrdered By: Oren Sky on 06-26-2022 Estimated GFR (MDRD) Amer 60 mL/min >60 [facility] Comment on above: GFR Calc Estimated GFR (MDRD) Non-Af Amer 50 mL/min >60 [facility] Comment on above: Non- GFR Calc No Panel InformationOrdered By: Jessica Gerardo on 06-26-2022 Thyroid Stimulating Hormone (TSH) 1.59 uIU/mL 0.358-3.74 [facility] Urine Microalbumin/Creatinine Ratio 72.5 mg/g CRE <30 [facility] Serum or plasma calcium grazyna urement (mass/volume)Ordered By: Oren Sky on 06-26-2022 Calcium [Mass/Vol] 9.0 mg/dL 8.5-10.1 [facility] Serum or plasma cholesterol in HDL measurement (mass/volume)Ordered By: Jessica Gerardo on 06-26-2022 Cholesterol in HDL [Mass/Vol] 36 mg/dL >40 [facility] Comment on above: The drugs N-Acetylcy steine and Metamizole may falsely depress this assay. Reference Range HDL <40 mg/dL Low HDL Cholesterol HDL >or= 60 mg/dL High HDL Cholesterol Serum or plasma cholesterol in VLDL measurement (mass/volume)Ordered By: Jessica Gerardo on 06-26-2022 Cholesterol in VLDL [Mass/Vol] 54 mg/dL 5-40 [facility] Serum or plasma creatinine m easurement (mass/volume)Ordered By: Oren Sky on 06-26-2022 Creatinine [Mass/Vol] 1.53 mg/dL 0.70-1.30 [facility] Comment on above: The validity of the calculated GFR & GFRAA in patients over 70 years has not been determined. Clinical correlation is essential. Serum or plasma low density lipoprotein (LDL) cholesterol measurement (mass/volume)Ordered By: Jessica Gerardo on 06-26-2022 Cholesterol in LDL [Mass/Vol] 55 mg/dL 0-130 [facility] Serum or plasma testosterone free measurement (mass/volume)Ordered By: Jessica Gerardo on 06-26-2022 Testosterone Free [Mass/Vol] 3.78 ng/dL 5.00-21.00 [facility] Serum or plasma urea nitroge n measurement (mass/volume)Ordered By: Oren Sky on 06-26-2022 Urea nitrogen [Mass/Vol] 47 mg/dL 7-18 [facility] Thin prep Papanicolaou smear with manual screeningOrdered By: Oren Sky on 06-26-2022 Thin prep Papanicolaou smear with manual screening 7 5-15 [facility] Thin prep Papanicolaou smear with manual screeningOrdered By: Jessica Gerardo on 06-26-2022 Thin prep Papanicolaou smear with manual screening 51.1 mg/L NO RANGE EST. [facility] Urine creatinine measurement (mass/volume)Ordered By: Jessica Gerardo on 06-26-2022 Creatinine (U) [Mass/Vol] 70.50 mg/dL NO RANGE EST. [facility] Laboratory - Hematology and Cell countson 06-18-2022 HbA1c (Bld) [Mass fraction] 8.2 % [facility] Basophil percentageOrdered B y: Lydia Segura on 05-18-2022 Chloride [Moles/Vol] 106 mmol/L 98-107 [facility] Glucose [Mass/Vol] 251 mg/dL 74-106 [facility] Comment on above: Glucose result great er than or equal to 200 mg/dLsuggests DIABETES MELLITUS per A.D.A. criteria. Potassium [Moles/Vol] 3.8 mmol/L 3.5-5.1 [facility] Sodium [Moles/Vol] 135 mmol/L 136-145 [facility] Laboratory - Chemistry and C hemistry - challengeOrdered By: Lydia Segura on 05-18-2022 CO2 [Moles/Vol] 21.0 mmol/L 21.0-32.0 [facility] Urea nitrogen/Creatinine [Mass ratio] 19.4 mg/mg 10-20 [facility] No Panel InformationOrdered By: Lydia Segura on 05-18-2022 Estimated GFR (MDRD) Amer 90 mL/min >60 [facility] Comment on above: GFR Calc Estimated GFR (MDRD) Non-Af Amer 75 mL/min >60 [facility] Comment on above: Non- GFR Calc Serum or plasma calcium grazyna urement (mass/volume)Ordered By: Lydia Segura on 05-18-2022 Calcium [Mass/Vol] 8.6 mg/dL 8.5-10.1 [facility] Serum or plasma creatinine m easurement (mass/volume)Ordered By: Lydia Segura on 05-18-2022 Creatinine [Mass/Vol] 1.08 mg/dL 0.70-1.30 [facility] Comment on above: The validity of the calculated GFR & GFRAA in patients over 70 years has not been determined. Clinical correlation is essential. Serum or plasma urea nitroge n measurement (mass/volume)Ordered By: Lydia Segura on 05-18-2022 Urea nitrogen [Mass/Vol] 21 mg/dL 7-18 [facility] Thin prep Papanicolaou smear with manual screeningOrdered By: Lydia Segura on 05-18-2022 Thin prep Papanicolaou smear with manual screening 8 5-15 [facility] Absolute lymphocyte countOrd ered By: Oren Sky on 04-17-2022 Lymphocytes Auto (Unsp spec) [#/Vol] 2.25 10*3/uL 0.83-4.51 [facility] Basophil percentageOrdered B y: Oren Sky on 04-17-2022 Basophils/100 WBC (Bld) 1.1 % 0-1 [facility] Chloride [Moles/Vol] 102 mmol/L 98-107 [facility] Eosinophils/100 WBC (Bld) 3.3 % 0-5 [facility] Glucose [Mass/Vol] 263 mg/dL 74-106 [facility] Comment on above: Glucose result great er than or equal to 200 mg/dLsuggests DIABETES MELLITUS per A.D.A. criteria. Neutrophils (Bld) [#/Vol] 5.0 10*3/uL 2.0-7.7 [facility] Neutrophils/100 WBC (Bld) 59.8 % 47-70 [facility] Potassium [Moles/Vol] 4.0 mmol/L 3.5-5.1 [facility] Sodium [Moles/Vol] 135 mmol/L 136-145 [facility] WBC (Bld) [#/Vol] 8.4 10*3/uL 4.4-11.0 [facility] Blood erythrocytes count (nu mber/volume)Ordered By: Oren Sky on 04-17-2022 RBC (Bld) [#/Vol] 4.44 10*6/uL 4.6-6.2 [facility] Blood hemoglobin measurement (mass/volume)Ordered By: Oren Sky on 04-17-2022 Hemoglobin (Bld) [Mass/Vol] 11.1 g/dL 13.0-16.5 [facility] Blood lymphocytes/100 leukoc ytesOrdered By: Oren Sky on 04-17-2022 Lymphocytes/100 WBC (Bld) 26.8 % 19-41 [facility] Blood monocytes/100 leukocyt esOrdered By: Oren Sky on 04-17-2022 Monocytes/100 WBC (Bld) 8.6 % 0-10 [facility] Blood platelet mean volumeOr dered By: Oren Sky on 04-17-2022 Platelet mean volume (Bld) [Entitic vol] 10.3 fL 6.2-12.0 [facility] Determination of erythrocyte mean corpuscular volume (MCV)Ordered By: Oren Sky on 04-17-2022 MCV (RBC) [Entitic vol] 80.2 fL 80-94 [facility] Hematocrit Auto (Bld) [Volum e fraction]Ordered By: Oren Sky on 04-17-2022 Hematocrit (Bld) [Volume fraction] 35.6 % 40-54 [facility] Iron measurement (mass/mass) Ordered By: Oren Sky on 04-17-2022 Iron (Unsp spec) [Mass/Mass] 48 ug/dL 65-175 [facility] Laboratory - Chemistry and C hemistry - challengeOrdered By: Oren Sky on 04-17-2022 CO2 [Moles/Vol] 22.0 mmol/L 21.0-32.0 [facility] Natriuretic peptide B (Bld) [Mass/Vol] 37.2 pg/mL 0-100 [facility] Urea nitrogen/Creatinine [Mass ratio] 25.8 mg/mg 10-20 [facility] Laboratory - Hematology and Cell countsOrdered By: Oren Sky on 04-17-2022 Erythrocyte distribution width (RBC) [Entitic vol] 50.0 fL 35.1-43.9 [facility] Erythrocyte distribution width (RBC) [Ratio] 17.2 % 11.6-14.6 [facility] Immature granulocytes/100 WBC (Bld) 0.400 % 0.0-0.9 [facility] Comment on above: IG% - Immature Granu locytes (promyelocytes, myelocytes and metamyelocytes) > 1% indicates that a LEFT SHIFT is Present. MCH (RBC) [Entitic mass] 25.0 pg 27.0-32.0 [facility] Nucleated RBC/100 WBC (Bld) [Ratio] 0 % 0-5 [facility] MCHC Auto (RBC) [Mass/Vol]Or dered By: Oren Sky on 04-17-2022 MCHC (RBC) [Mass/Vol] 31.2 g/dL 32-36 [facility] No Panel InformationOrdered By: Oren Sky on 04-17-2022 Estimated GFR (MDRD) Amer 77 mL/min >60 [facility] Comment on above: GFR Calc Estimated GFR (MDRD) Non-Af Amer 64 mL/min >60 [facility] Comment on above: Non- GFR Calc Total Iron Binding Capacity 350 ug/dL 250-450 [facility] Platelets bldOrdered By: Jose Sky on 04-17-2022 Platelets (Bld) [#/Vol] 268 10*3/uL 150-450 [facility] Serum or plasma calcium grazyna urement (mass/volume)Ordered By: Oren Sky on 04-17-2022 Calcium [Mass/Vol] 8.9 mg/dL 8.5-10.1 [facility] Serum or plasma creatinine m easurement (mass/volume)Ordered By: Oren Sky on 04-17-2022 Creatinine [Mass/Vol] 1.24 mg/dL 0.70-1.30 [facility] Comment on above: The validity of the calculated GFR & GFRAA in patients over 70 years has not been determined. Clinical correlation is essential. Serum or plasma iron saturat ion measurement (mass fraction)Ordered By: Oren Sky on 04-17-2022 Iron saturation [Mass fraction] 13.7 % 15.0-55.0 [facility] Serum or plasma urea nitroge n measurement (mass/volume)Ordered By: Oren Sky on 04-17-2022 Urea nitrogen [Mass/Vol] 32 mg/dL 7-18 [facility] Thin prep Papanicolaou smear with manual screeningOrdered By: Oren Sky on 04-17-2022 Thin prep Papanicolaou smear with manual screening 11 5-15 [facility] - Hematology and Cell countson 01-15-2022 HbA1c (Bld) [Mass fraction] 8.3 % [facility] Absolute lymphocyte counton 09-04-2021 Lymphocytes Auto (Unsp spec) [#/Vol] 1.59 10*3/uL 0.83-4.51 [facility] Work Phone: Basophil percentageon 2021 Basophils/100 WBC (Bld) 0.5 % 0-1 [facility] Work Phone: Bilirubin [Mass/Vol] 0.60 mg/dL 0.20-1.00 [facility] Work Phone: Comment on above: For patients on eltr ombopag therapy, use of Dimension [place] TBIL is not recommended. Chloride [Moles/Vol] 107 mmol/L 98-107 [facility] Work Phone: Eosinophils/100 WBC (Bld) 3.6 % 0-5 [facility] Work Phone: Glucose [Mass/Vol] 174 mg/dL 74-106 [facility] Work Phone: Comment on above: Fasting Glucose resu lt greater than or equal to 126 mg/dL suggests DIABETES MELLITUS per A.D.A. criteria. Neutrophils (Bld) [#/Vol] 4.8 10*3/uL 2.0-7.7 [facility] Work Phone: Neutrophils/100 WBC (Bld) 63.3 % 47-70 [facility] Work Phone: Potassium [Moles/Vol] 4.0 mmol/L 3.5-5.1 [facility] Work Phone: Protein [Mass/Vol] 7.6 g/dL 6.4-8.2 [facility] Work Phone: Sodium [Moles/Vol] 138 mmol/L 136-145 [facility] Work Phone: WBC (Bld) [#/Vol] 7.5 10*3/uL 4.4-11.0 [facility] Work Phone: Blood erythrocytes count (nu mber/volume)on 09-04-2021 RBC (Bld) [#/Vol] 4.26 10*6/uL 4.6-6.2 [facility]: Blood hemoglobin measurement (mass/volume)on 09-04-2021 Hemoglobin (Bld) [Mass/Vol] 11.0 g/dL 13.0-16.5 [facility] Work Phone: Blood lymphocytes/100 leukoc yteson 09-04-2021 Lymphocytes/100 WBC (Bld) 21.2 % 19-41 [facility] Work Phone: Blood monocytes/100 leukocyt eson 09-04-2021 Monocytes/100 WBC (Bld) 10.7 % 0-10 [facility] Work Phone: Blood platelet mean volumeon 09-04-2021 Platelet mean volume (Bld) [Entitic vol] 10.2 fL 6.2-12.0 [facility] Work Phone: Determination of erythrocyte mean corpuscular volume (MCV)on 09-04-2021 MCV (RBC) [Entitic vol] 81.5 fL 80-94 [facility] Work Phone: [phone] Hematocrit Auto (Bld) [Volum e fraction]on 09-04-2021 Hematocrit (Bld) [Volume fraction] 34.7 % 40-54 [facility] Work Phone: [phone] Laboratory - Chemistry and C hemistry - challengeon 09-04-2021 ALP [Catalytic activity/Vol] 92 U/L 45-117 [facility] Work Phone: [phone] ALT [Catalytic activity/Vol] 23 U/L 16-61 [facility] Work Phone: [phone] CO2 [Moles/Vol] 26.0 mmol/L 21.0-32.0 [facility] Work Phone: [phone] Globulin (S) [Mass/Vol] 4.5 g/dL 2.2-4.2 [facility] Work Phone: [phone] Natriuretic peptide B (Bld) [Mass/Vol] 105.8 pg/mL 0-100 [facility] Work Phone: [phone] Urea nitrogen/Creatinine [Mass ratio] 25.2 mg/mg 10-20 [facility] Work Phone: [phone] Laboratory - Hematology and Cell countson 09-04-2021 Erythrocyte distribution width (RBC) [Entitic vol] 46.4 fL 35.1-43.9 [facility] Work Phone: [phone] Erythrocyte distribution width (RBC) [Ratio] 15.7 % 11.6-14.6 [facility] Work Phone: [phone] Immature granulocytes/100 WBC (Bld) 0.700 % 0.0-0.9 [facility] Work Phone: [phone] Comment on above: IG% - Immature Granu locytes (promyelocytes, myelocytes and metamyelocytes) > 1% indicates that a LEFT SHIFT is Present. MCH (RBC) [Entitic mass] 25.8 pg 27.0-32.0 [facility] Work Phone: Nucleated RBC/100 WBC (Bld) [Ratio] 0 % 0-5 [facility] Work Phone: [phone] MCHC Auto (RBC) [Mass/Vol]on 09-04-2021 MCHC (RBC) [Mass/Vol] 31.7 g/dL 32-36 [facility] Work Phone: No Panel Informationon 09-04 Troponin I High Sensitivity 16 pg/mL 3.0-78.0 [facility] Work Phone: Comment on above: Please Note: New Karly t Units and Gender Specific Reference Ranges. For more information see Policy Stat Procedure [place] High Sensitivity Troponin (TNIH) and attachments. Estimated Creatinine Clearance Calc 92.55 ml/min [facility] Work Phone: Estimated GFR (MDRD) Amer 115 mL/min >60 [facility] Work Phone: [phone] Comment on above: GFR Calc Estimated GFR (MDRD) Non-Af Amer 95 mL/min >60 [facility] Work Phone: Comment on above: Non- GFR Calc Platelets bldon 09-04-2021 Platelets (Bld) [#/Vol] 200 10*3/uL 150-450 [facility] Work Phone: [phone] Serum or plasma albumin grazyna urement (mass/volume)on 09-04-2021 Albumin [Mass/Vol] 3.1 g/dL 3.2-5.0 [facility] Work Phone: [phone] Serum or plasma albumin/glob ulin mass ratioon 09-04-2021 Albumin/Globulin [Mass ratio] 0.7 {ratio} 0.9-2.4 [facility] Work Phone: [phone] Serum or plasma calcium grazyna urement (mass/volume)on 09-04-2021 Calcium [Mass/Vol] 8.5 mg/dL 8.5-10.1 [facility] Work Phone: [phone] Serum or plasma creatinine m easurement (mass/volume)on 09-04-2021 Creatinine [Mass/Vol] 0.87 mg/dL 0.70-1.30 [facility] Work Phone: Comment on above: The validity of the calculated GFR & GFRAA in patients over 70 years has not been determined. Clinical correlation is essential. Serum or plasma urea nitroge n measurement (mass/volume)on 09-04-2021 Urea nitrogen [Mass/Vol] 22 mg/dL 7-18 [facility] Work Phone: Thin prep Papanicolaou smear with manual screeningon 09-04-2021 Thin prep Papanicolaou smear with manual screening 18 U/L 15-37 [facility] Work Phone: Thin prep Papanicolaou smear with manual screening 5 5-15 [facility] Work Phone: Absolute lymphocyte counton 07-16-2021 Lymphocytes Auto (Unsp spec) [#/Vol] 1.10 10*3/uL 0.83-4.51 [facility] Work Phone: Basophil percentageon 2021 Basophils/100 WBC (Bld) 0.7 % 0-1 [facility] Work Phone: Chloride [Moles/Vol] 105 mmol/L 98-107 [facility] Work Phone: Eosinophils/100 WBC (Bld) 3.2 % 0-5 [facility] Work Phone: Glucose [Mass/Vol] 283 mg/dL 74-106 [facility] Work Phone: Comment on above: Glucose result great er than or equal to 200 mg/dLsuggests DIABETES MELLITUS per A.D.A. criteria. Neutrophils (Bld) [#/Vol] 6.8 10*3/uL 2.0-7.7 [facility] Work Phone: Neutrophils/100 WBC (Bld) 76.6 % 47-70 [facility] Work Phone: [phone] Potassium [Moles/Vol] 3.9 mmol/L 3.5-5.1 [facility] Work Phone: Sodium [Moles/Vol] 138 mmol/L 136-145 [facility] Work Phone: WBC (Bld) [#/Vol] 8.8 10*3/uL 4.4-11.0 [facility] Work Phone: Blood erythrocytes count (nu mber/volume)on 07-16-2021 RBC (Bld) [#/Vol] 4.49 10*6/uL 4.6-6.2 [facility] Work Phone: Blood hemoglobin measurement (mass/volume)on 07-16-2021 Hemoglobin (Bld) [Mass/Vol] 11.8 g/dL 13.0-16.5 [facility] Work Phone: Blood lymphocytes/100 leukoc yteson 07-16-2021 Lymphocytes/100 WBC (Bld) 12.5 % 19-41 [facility] Work Phone: [phone] Blood monocytes/100 leukocyt eson 07-16-2021 Monocytes/100 WBC (Bld) 6.7 % 0-10 [facility] Work Phone: Blood platelet mean volumeon 07-16-2021 Platelet mean volume (Bld) [Entitic vol] 10.2 fL 6.2-12.0 [facility] Work Phone: Determination of erythrocyte mean corpuscular volume (MCV)on 07-16-2021 MCV (RBC) [Entitic vol] 82.9 fL 80-94 [facility] Work Phone: Hematocrit Auto (Bld) [Volum e fraction]on 07-16-2021 Hematocrit (Bld) [Volume fraction] 37.2 % 40-54 [facility] Work Phone: Laboratory - Chemistry and C hemistry - challengeon 07-16-2021 CO2 [Moles/Vol] 24.0 mmol/L 21.0-32.0 [facility] Work Phone: Natriuretic peptide B (Bld) [Mass/Vol] 59.2 pg/mL 0-100 [facility] Work Phone: Urea nitrogen/Creatinine [Mass ratio] 17.5 mg/mg 10-20 [facility] Work Phone: Laboratory - Hematology and Cell countson 07-16-2021 Erythrocyte distribution width (RBC) [Entitic vol] 47.2 fL 35.1-43.9 [facility] Work Phone: [phone] Erythrocyte distribution width (RBC) [Ratio] 15.9 % 11.6-14.6 [facility] Work Phone: [phone] Immature granulocytes/100 WBC (Bld) 0.300 % 0.0-0.9 [facility] Work Phone: [phone] Comment on above: IG% - Immature Granu locytes (promyelocytes, myelocytes and metamyelocytes) > 1% indicates that a LEFT SHIFT is Present. MCH (RBC) [Entitic mass] 26.3 pg 27.0-32.0 [facility] Work Phone: [phone] Nucleated RBC/100 WBC (Bld) [Ratio] 0 % 0-5 [facility] Work Phone: [phone] MCHC Auto (RBC) [Mass/Vol]on 07-16-2021 MCHC (RBC) [Mass/Vol] 31.7 g/dL 32-36 [facility] Work Phone: [phone] Panel Informationon 07-16 Estimated Creatinine Clearance Calc 64.68 ml/min [facility] Work Phone: [phone] Estimated GFR (MDRD) Amer 76 mL/min >60 [facility] Work Phone: [phone] Comment on above: GFR Calc Estimated GFR (MDRD) Non-Af Amer 63 mL/min >60 [facility] Work Phone: [phone] Comment on above: Non- GFR Calc Troponin I High Sensitivity 10 pg/mL 3.0-78.0 [facility] Work Phone: [phone] Comment on above: Please Note: New Karly t Units and Gender Specific Reference Ranges. For more information see Policy Stat Procedure [place] High Sensitivity Troponin (TNIH) and attachments. Platelets bldon 07-16-2021 Platelets (Bld) [#/Vol] 209 10*3/uL 150-450 [facility] Work Phone: Serum or plasma calcium grazyna urement (mass/volume)on 07-16-2021 Calcium [Mass/Vol] 8.7 mg/dL 8.5-10.1 [facility] Work Phone: Serum or plasma creatinine m easurement (mass/volume)on 07-16-2021 Creatinine [Mass/Vol] 1.26 mg/dL 0.70-1.30 [facility] Work Phone: Comment on above: The validity of the calculated GFR & GFRAA in patients over 70 years has not been determined. Clinical correlation is essential. Serum or plasma urea nitroge n measurement (mass/volume)on 07-16-2021 Urea nitrogen [Mass/Vol] 22 mg/dL 7-18 [facility] Work Phone: Thin prep Papanicolaou smear with manual screeningon 07-16-2021 Thin prep Papanicolaou smear with manual screening 9 5-15 [facility] Work Phone: Absolute lymphocyte counton 07-12-2021 Lymphocytes Auto (Unsp spec) [#/Vol] 1.80 10*3/uL 0.83-4.51 [facility] Work Phone: Basophil percentageon 2021 Basophils/100 WBC (Bld) 0.9 % 0-1 [facility] Work Phone: Chloride [Moles/Vol] 103 mmol/L 98-107 [facility] Work Phone: Eosinophils/100 WBC (Bld) 5.6 % 0-5 [facility] Work Phone: Glucose [Mass/Vol] 182 mg/dL 74-106 [facility] Work Phone: Comment on above: Fasting Glucose resu lt greater than or equal to 126 mg/dL suggests DIABETES MELLITUS per A.D.A. criteria. Neutrophils (Bld) [#/Vol] 5.1 10*3/uL 2.0-7.7 [facility] Work Phone: Neutrophils/100 WBC (Bld) 61.8 % 47-70 [facility] Work Phone: Potassium [Moles/Vol] 3.6 mmol/L 3.5-5.1 [facility] Work Phone: Sodium [Moles/Vol] 135 mmol/L 136-145 [facility] Work Phone: WBC (Bld) [#/Vol] 8.2 10*3/uL 4.4-11.0 [facility] Work Phone: Blood erythrocytes count (nu mber/volume)on 07-12-2021 RBC (Bld) [#/Vol] 4.31 10*6/uL 4.6-6.2 [facility] Work Phone: Blood hemoglobin measurement (mass/volume)on 07-12-2021 Hemoglobin (Bld) [Mass/Vol] 11.1 g/dL 13.0-16.5 [facility] Work Phone: [phone] Blood lymphocytes/100 leukoc yteson 07-12-2021 Lymphocytes/100 WBC (Bld) 22.0 % 19-41 [facility] Work Phone: [phone] Blood monocytes/100 leukocyt eson 07-12-2021 Monocytes/100 WBC (Bld) 9.3 % 0-10 [facility] Work Phone: Blood platelet mean volumeon 07-12-2021 Platelet mean volume (Bld) [Entitic vol] 10.2 fL 6.2-12.0 [facility] Work Phone: Determination of erythrocyte mean corpuscular volume (MCV)on 07-12-2021 MCV (RBC) [Entitic vol] 80.5 fL 80-94 [facility] Work Phone: Hematocrit Auto (Bld) [Volum e fraction]on 07-12-2021 Hematocrit (Bld) [Volume fraction] 34.7 % 40-54 [facility] Work Phone: Laboratory - Chemistry and C hemistry - challengeon 07-12-2021 CO2 [Moles/Vol] 24.0 mmol/L 21.0-32.0 [facility] Work Phone: [phone] Natriuretic peptide B (Bld) [Mass/Vol] 93.4 pg/mL 0-100 [facility] Work Phone: [phone] Urea nitrogen/Creatinine [Mass ratio] 22.0 mg/mg 10-20 [facility] Work Phone: [phone] Laboratory - Hematology and Cell countson 07-12-2021 Erythrocyte distribution width (RBC) [Entitic vol] 45.5 fL 35.1-43.9 [facility] Work Phone: [phone] Erythrocyte distribution width (RBC) [Ratio] 15.9 % 11.6-14.6 [facility] Work Phone: [phone] Immature granulocytes/100 WBC (Bld) 0.400 % 0.0-0.9 [facility] Work Phone: [phone] Comment on above: IG% - Immature Granu locytes (promyelocytes, myelocytes and metamyelocytes) > 1% indicates that a LEFT SHIFT is Present. MCH (RBC) [Entitic mass] 25.8 pg 27.0-32.0 [facility] Work Phone: [phone] Nucleated RBC/100 WBC (Bld) [Ratio] 0 % 0-5 [facility] Work Phone: [phone] MCHC Auto (RBC) [Mass/Vol]on 07-12-2021 MCHC (RBC) [Mass/Vol] 32.0 g/dL 32-36 [facility] Work Phone: [phone] Panel Informationon 07-12 Estimated GFR (MDRD) Amer 99 mL/min >60 [facility] Work Phone: [phone] Comment on above: GFR Calc Estimated GFR (MDRD) Non-Af Amer 82 mL/min >60 [facility] Work Phone: [phone] Comment on above: Non- GFR Calc Thyroid Stimulating Hormone (TSH) 1.06 uIU/mL 0.358-3.74 [facility] Work Phone: [phone] Platelets bldon 07-12-2021 Platelets (Bld) [#/Vol] 223 10*3/uL 150-450 [facility] Work Phone: Serum or plasma calcium grazyna urement (mass/volume)on 07-12-2021 Calcium [Mass/Vol] 8.6 mg/dL 8.5-10.[address] [facility] Work Phone: Serum or plasma creatinine m easurement (mass/volume)on 07-12-2021 Creatinine [Mass/Vol] 1.00 mg/dL 0.70-1.30 [facility] Work Phone: Comment on above: The validity of the calculated GFR & GFRAA in patients over 70 years has not been determined. Clinical correlation is essential. Serum or plasma urea nitroge n measurement (mass/volume)on 07-12-2021 Urea nitrogen [Mass/Vol] 22 mg/dL 7-18 [facility] Work Phone: Thin prep Papanicolaou smear with manual screeningon 07-12-2021 Thin prep Papanicolaou smear with manual screening 8 5-15 [facility] Work Phone: Laboratory - Hematology and Cell countson 06-29-2021 HbA1c (Bld) [Mass fraction] 8.9 % [facility] Work Phone: Absolute lymphocyte counton 06-19-2021 Lymphocytes Auto (Unsp spec) [#/Vol] 1.28 10*3/uL 0.83-4.51 [facility] Work Phone: Basophil percentageon 2021 Lactate [Moles/Vol] 2.1 mmol/L 0.4-2.0 [facility] Work Phone: Comment on above: Critical Result(s) C alled at: 14:08:57 06/19/2021 by: Danae Zaldivar to Marlen. Results read back by same. Basophil percentage 0 SEEN /hpf 0-5 [facility] Work Phone: Basophils/100 WBC (Bld) 0.5 % 0-1 [facility] Work Phone: Chloride [Moles/Vol] 104 mmol/L 98-107 [facility]: Eosinophils/100 WBC (Bld) 2.6 % 0-5 [facility] Work Phone: Glucose [Mass/Vol] 191 mg/dL 74-106 [facility] Work Phone: Comment on above: Fasting Glucose resu lt greater than or equal to 126 mg/dL suggests DIABETES MELLITUS per A.D.A. criteria. Neutrophils (Bld) [#/Vol] 5.1 10*3/uL 2.0-7.7 [facility] Work Phone: Neutrophils/100 WBC (Bld) 69.5 % 47-70 [facility] Work Phone: Potassium [Moles/Vol] 3.9 mmol/L 3.5-5.1 [facility] Work Phone: Sodium [Moles/Vol] 137 mmol/L 136-145 [facility] Work Phone: WBC (Bld) [#/Vol] 7.4 10*3/uL 4.4-11.0 [facility] Work Phone: Bilirubin Test strip Ql (U)o n 06-19-2021 Bilirubin Ql (U) Negative Negative [facility] Work Phone: Blood erythrocytes count (nu mber/volume)on 06-19-2021 RBC (Bld) [#/Vol] 4.54 10*6/uL 4.6-6.2 [facility] Work Phone: Blood hemoglobin measurement (mass/volume)on 06-19-2021 Hemoglobin (Bld) [Mass/Vol] 12.0 g/dL 13.0-16.5 [facility] Work Phone: Blood lymphocytes/100 leukoc yteson 06-19-2021 Lymphocytes/100 WBC (Bld) 17.3 % 19-41 [facility] Work Phone: Blood monocytes/100 leukocyt eson 06-19-2021 Monocytes/100 WBC (Bld) 9.6 % 0-10 [facility] Work Phone: [phone] Blood platelet mean volumeon 06-19-2021 Platelet mean volume (Bld) [Entitic vol] 9.7 fL 6.2-12.0 [facility] Work Phone: [phone] Determination of erythrocyte mean corpuscular volume (MCV)on 06-19-2021 MCV (RBC) [Entitic vol] 79.7 fL 80-94 [facility] Work Phone: [phone] Hematocrit Auto (Bld) [Volum e fraction]on 06-19-2021 Hematocrit (Bld) [Volume fraction] 36.2 % 40-54 [facility] Work Phone: [phone] Ketones Test strip Ql (U)on 06-19-2021 Ketones Ql (U) Negative Negative [facility] Work Phone: [phone] Laboratory - Chemistry and C hemistry - challengeon 06-19-2021 CO2 [Moles/Vol] 26.0 mmol/L 21.0-32.0 [facility] Work Phone: [phone] Natriuretic peptide B (Bld) [Mass/Vol] 155.0 pg/mL 0-100 [facility] Work Phone: [phone] Urea nitrogen/Creatinine [Mass ratio] 14.6 mg/mg 10-20 [facility] Work Phone: [phone] Laboratory - Hematology and Cell countson 06-19-2021 Erythrocyte distribution width (RBC) [Entitic vol] 43.1 fL 35.1-43.9 [facility] Work Phone: [phone] Erythrocyte distribution width (RBC) [Ratio] 15.0 % 11.6-14.6 [facility] Work Phone: [phone] Immature granulocytes/100 WBC (Bld) 0.500 % 0.0-0.9 [facility] Work Phone: [phone] Comment on above: IG% - Immature Granu locytes (promyelocytes, myelocytes and metamyelocytes) > 1% indicates that a LEFT SHIFT is Present. MCH (RBC) [Entitic mass] 26.4 pg 27.0-32.0 [facility] Work Phone: Nucleated RBC/100 WBC (Bld) [Ratio] 0 % 0-5 [facility] Work Phone: MCHC Auto (RBC) [Mass/Vol]on 06-19-2021 MCHC (RBC) [Mass/Vol] 33.1 g/dL 32-36 [facility] Work Phone: [phone] Mucus LM Ql (Urine sed)on Mucus Ql (Urine sed) 0 SEEN /hpf [facility] Work Phone: [phone] Nitrite Test strip Ql (U)on 06-19-2021 Nitrite Ql (U) Negative Negative [facility] Work Phone: [phone] Panel Informationon 06-19 Troponin I High Sensitivity 31 pg/mL 3.0-78.0 [facility] Work Phone: [phone] Comment on above: Please Note: New Karly t Units and Gender Specific Reference Ranges. For more information see Policy Stat Procedure [place] High Sensitivity Troponin (TNIH) and attachments. Estimated Creatinine Clearance Calc 84.90 ml/min [facility] Work Phone: [phone] Estimated GFR (MDRD) Amer 104 mL/min >60 [facility] Work Phone: [phone] Comment on above: GFR Calc Estimated GFR (MDRD) Non-Af Amer 86 mL/min >60 [facility] Work Phone: [phone] Comment on above: Non- GFR Calc Platelets bldon 06-19-2021 Platelets (Bld) [#/Vol] 216 10*3/uL 150-450 [facility] Work Phone: [phone] Protein Test strip Ql (U)on 06-19-2021 Protein Ql (U) 30 mg/dl Negative [facility] Work Phone: [phone] Serum or plasma calcium grazyna urement (mass/volume)on 06-19-2021 Calcium [Mass/Vol] 8.8 mg/dL 8.5-10.1 [facility] Work Phone: Serum or plasma creatinine m easurement (mass/volume)on 06-19-2021 Creatinine [Mass/Vol] 0.96 mg/dL 0.70-1.30 [facility] Work Phone: Comment on above: The validity of the calculated GFR & GFRAA in patients over 70 years has not been determined. Clinical correlation is essential. Serum or plasma urea nitroge n measurement (mass/volume)on 06-19-2021 Urea nitrogen [Mass/Vol] 14 mg/dL 7-18 [facility] Work Phone: Squamous epithelial cells de tection in urine sediment by light microscopyon 06-19-2021 Epithelial cells.squamous LM Ql (Urine sed) 0 SEEN /hpf 0-5 [facility] Work Phone: Thin prep Papanicolaou smear with manual screeningon 06-19-2021 Thin prep Papanicolaou smear with manual screening 7 5-15 [facility] Work Phone: Urine blood detectionon 05-31 RBC Ql (U) Negative Negative [facility] Work Phone: RBC Ql (U) 0 SEEN /hpf 0-5 [facility] Work Phone: Urine clarityon 06-19-2021 Clarity (U) Clear Clear [facility] Work Phone: Urine color determinationon 06-19-2021 Color (U) Yellow Yellow [facility] Work Phone: Urine glucose detectionon Glucose Ql (U) Normal mg/dl Normal [facility] Work Phone: Urine leukocyte esterase det ection by dipstickon 06-19-2021 Leukocyte esterase Test strip Ql (U) Negative Negative [facility] Work Phone: Urine pHon 06-19-2021 pH (U) 6.0 [pH] 5.0 - 8.0 [facility] Work Phone: [phone] Urine sediment bacteria coun t by microscopy (number/high power field)on 06-19-2021 Bacteria LM.HPF (Urine sed) [#/Area] 0 /[HPF] None Seen [facility] Work Phone: Urine specific gravity measu rementon 06-19-2021 Specific gravity (U) [Rel density] 1.015 1.002-1.030 [facility] Work Phone: Urobilinogen Auto test strip Ql (U)on 06-19-2021 Urobilinogen Ql (U) Normal mg/dl Normal [facility] Work Phone: No Panel Informationon 06-02 Urine Microalbumin/Creatinine Ratio 40.2 mg/g CRE <30 [facility] Work Phone: Thin prep Papanicolaou smear with manual screeningon 06-02-2021 Thin prep Papanicolaou smear with manual screening 22.8 mg/L NO RANGE EST. [facility] Work Phone: Urine creatinine measurement (mass/volume)on 06-02-2021 Creatinine (U) [Mass/Vol] 56.70 mg/dL NO RANGE EST. [facility] Work Phone: Basophil percentageon 2021 Bilirubin [Mass/Vol] 0.40 mg/dL 0.20-1.00 [facility] Work Phone: Comment on above: For patients on eltr ombopag therapy, use of Dimension [place] TBIL is not recommended. Chloride [Moles/Vol] 102 mmol/L 98-107 [facility] Work Phone: Cholesterol [Mass/Vol] 189 mg/dL <200 [facility] Work Phone: Comment on above: <200 mg/dL Desirable 200-240 mg/dL Borderline >240 mg/dL High Risk Glucose [Mass/Vol] 285 mg/dL 74-106 [facility] Work Phone: Comment on above: Glucose result great er than or equal to 200 mg/dLsuggests DIABETES MELLITUS per A.D.A. criteria. Potassium [Moles/Vol] 4.1 mmol/L 3.5-5.1 [facility] Work Phone: [phone] Protein [Mass/Vol] 8.1 g/dL 6.4-8.2 [facility] Work Phone: [phone] Sodium [Moles/Vol] 133 mmol/L 136-145 [facility] Work Phone: [phone] Triglyceride [Mass/Vol] 526 mg/dL <199 [facility] Work Phone: [phone] Comment on above: The drugs N-Acetylcy steine [...] 06-01-2021 ALP [Catalytic activity/Vol] 96 U/L 45-117 [facility] Work Phone: ALT [Catalytic activity/Vol] 31 U/L 16-61 [facility] Work Phone: [phone] CO2 [Moles/Vol] 24.0 mmol/L 21.0-32.0 [facility] Work Phone: [phone] Globulin (S) [Mass/Vol] 4.6 g/dL 2.2-4.2 [facility] Work Phone: [phone] Urea nitrogen/Creatinine [Mass ratio] 22.3 mg/mg 10-20 [facility] Work Phone: [phone] Laboratory - Hematology and Cell countson 06-01-2021 HbA1c (Bld) [Mass fraction] 9.3 % [facility] Work Phone: [phone] Panel Informationon 06-01 Estimated GFR (MDRD) Amer 73 mL/min >60 [facility] Work Phone: [phone] Comment on above: GFR Calc Estimated GFR (MDRD) Non-Af Amer 60 mL/min >60 [facility] Work Phone: [phone] Comment on above: Non- GFR Calc Serum or plasma albumin grazyna urement (mass/volume)on 06-01-2021 Albumin [Mass/Vol] 3.5 g/dL 3.2-5.0 [facility] Work Phone: Serum or plasma albumin/glob ulin mass ratioon 06-01-2021 Albumin/Globulin [Mass ratio] 0.8 {ratio} 0.9-2.4 [facility] Work Phone: Serum or plasma calcium grazyna urement (mass/volume)on 06-01-2021 Calcium [Mass/Vol] 9.1 mg/dL 8.5-10.1 [facility] Work Phone: Serum or plasma cholesterol in HDL measurement (mass/volume)on 06-01-2021 Cholesterol in HDL [Mass/Vol] 33 mg/dL >40 [facility] Work Phone: Comment on above: The drugs N-Acetylcy steine and Metamizole may falsely depress this assay. Reference Range HDL <40 mg/dL Low HDL Cholesterol HDL >or= 60 mg/dL High HDL Cholesterol Serum or plasma cholesterol in VLDL measurement (mass/volume)on 06-01-2021 Cholesterol in VLDL [Mass/Vol] TNP [facility] Work Phone: Comment on above: Test not performed Serum or plasma creatinine m easurement (mass/volume)on 06-01-2021 Creatinine [Mass/Vol] 1.30 mg/dL 0.70-1.30 [facility] Work Phone: Comment on above: The validity of the calculated GFR & GFRAA in patients over 70 years has not been determined. Clinical correlation is essential. Serum or plasma low density lipoprotein (LDL) cholesterol measurement (mass/volume)on 06-01-2021 Cholesterol in LDL [Mass/Vol] TNP [facility] Work Phone: Comment on above: Test not performed Serum or plasma urea nitroge n measurement (mass/volume)on 06-01-2021 Urea nitrogen [Mass/Vol] 29 mg/dL 7-18 [facility] Work Phone: Thin prep Papanicolaou smear with manual screeningon 06-01-2021 Thin prep Papanicolaou smear with manual screening 24 U/L 15-37 [facility] Work Phone: Thin prep Papanicolaou smear with manual screening 7 5-15 [facility] Work Phone: Absolute lymphocyte counton 05-30-2021 Lymphocytes Auto (Unsp spec) [#/Vol] 1.58 10*3/uL 0.83-4.51 [facility] Work Phone: Basophil percentageon 2021 Basophils/100 WBC (Bld) 0.7 % 0-1 [facility] Work Phone: Eosinophils/100 WBC (Bld) 2.4 % 0-5 [facility] Work Phone: Neutrophils (Bld) [#/Vol] 4.4 10*3/uL 2.0-7.7 [facility] Work Phone: Neutrophils/100 WBC (Bld) 64.8 % 47-70 [facility] Work Phone: WBC (Bld) [#/Vol] 6.7 10*3/uL 4.4-11.0 [facility] Work Phone: Blood erythrocytes count (nu mber/volume)on 05-30-2021 RBC (Bld) [#/Vol] 4.54 10*6/uL 4.6-6.2 [facility] Work Phone: Blood hemoglobin measurement (mass/volume)on 05-30-2021 Hemoglobin (Bld) [Mass/Vol] 11.9 g/dL 13.0-16.5 [facility] Work Phone: Blood lymphocytes/100 leukoc yteson 05-30-2021 Lymphocytes/100 WBC (Bld) 23.4 % 19-41 [facility] Work Phone: Blood monocytes/100 leukocyt eson 05-30-2021 Monocytes/100 WBC (Bld) 8.6 % 0-10 [facility] Work Phone: Blood platelet mean volumeon 05-30-2021 Platelet mean volume (Bld) [Entitic vol] 10.7 fL 6.2-12.0 [facility] Work Phone: [phone] Determination of erythrocyte mean corpuscular volume (MCV)on 05-30-2021 MCV (RBC) [Entitic vol] 81.3 fL 80-94 [facility] Work Phone: [phone] Hematocrit Auto (Bld) [Volum e fraction]on 05-30-2021 Hematocrit (Bld) [Volume fraction] 36.9 % 40-54 [facility] Work Phone: [phone] Laboratory - Hematology and Cell countson 05-30-2021 Erythrocyte distribution width (RBC) [Entitic vol] 46.5 fL 35.1-43.9 [facility] Work Phone: [phone] Erythrocyte distribution width (RBC) [Ratio] 15.6 % 11.6-14.6 [facility] Work Phone: [phone] Immature granulocytes/100 WBC (Bld) 0.100 % 0.0-0.9 [facility] Work Phone: [phone] Comment on above: IG% - Immature Granu locytes (promyelocytes, myelocytes and metamyelocytes) > 1% indicates that a LEFT SHIFT is Present. MCH (RBC) [Entitic mass] 26.2 pg 27.0-32.0 [facility] Work Phone: [phone] Nucleated RBC/100 WBC (Bld) [Ratio] 0 % 0-5 [facility] Work Phone: [phone] MCHC Auto (RBC) [Mass/Vol]on 05-30-2021 MCHC (RBC) [Mass/Vol] 32.2 g/dL 32-36 [facility] Work Phone: [phone] Panel Informationon 05-30 Thyroid Stimulating Hormone (TSH) 1.24 uIU/mL 0.358-3.74 [facility] Work Phone: Platelets bldon 05-30-2021 Platelets (Bld) [#/Vol] 201 10*3/uL 150-450 [facility] Work Phone: Final Surgical Pathology Rep shruthi 08-11-2018 Final Surgical Pathology Report . Pathology Reports Accession: Collected Date/Time: Received Date/Time: Pathologist: [id number] 08/07/2018 14:48 EDT 08/08/2018 14:48 EDT URBAN [...] cm. TS -1 Dictated by Talita GRIFFITHS ([facility]) MICROSCOPIC DESCRIPTION: A-B Slides reviewed. Electronically Signed by Pathology Report verified by [facility] Electronically signed by URBAN BILLINGS Sign out Date: 08/11/2018 15:23 Performing Lab: [facility], [address] [place] [address] ([place]) Comment on above: Performed By: #### S PFR #### [place] [id number] Otheron 12-28-2010 CONVERTED CLINICAL HISTORY OPERATIVE PROCEDURE: V arthroscopy, partial medial meniscectomy rt knee CLINICAL INFORMATION: Partial medial meniscal tear rt knee [facility] CONVERTED ELECTRONIC SIGNATURE OCHOA SPENCER M.D., PATHOLOGIST (Electronic signature on file) Final Signed Out: 12/28/2010 13:12 [facility] CONVERTED FINAL DIAGNOSIS FINAL DIAGNOSIS: RIGHT KNEE, INTRAARTICULAR SHAVINGS - FIBROCARTILAGE WITH DEGENERATIVE CHANGES. SPECIMEN: SHAVINGS, KNEE [facility] CONVERTED GROSS DESCRIPTION GROSS DESCRIPTION: Intra-articular shavings rt knee Container labeled shavings right knee. Received in a cloth sock are portions of yellow-white fibrocartilaginous tissue measuring 2 x 2 x 1 cm in aggregate. A service liaison representative sample is submitted in a single cassette. SMS/lrs MICROSCOPIC DESCRIPTION: Slides reviewed. EDS/gpl [facility] CONVERTED ORDERING PROVIDER Ordering Provider: KARLOS AQUINO [facility] Vital Signs Date Time Vital Sign Value Performing Clinician Facility 01-18-2025 09:54-0400 Body mass index (BMI) [Ratio] 45.78 kg/m2 Oziel Culp MD Work Phone: [facility] 01-18-2025 09:54-0400 Body temperature 97.7 [degF] Oziel Culp MD Work Phone: [facility] 01-18-2025 09:54-0400 Body weight 140.62 kg Oziel Culp MD Work Phone: [facility] 01-18-2025 09:54-0400 Diastolic blood pressure 65 mm[Hg] Oziel Culp MD Work Phone: [facility] 01-18-2025 09:54-0400 Heart rate 70 /min Oziel Culp MD Work Phone: [facility] 01-18-2025 09:54-0400 Systolic blood pressure 114 mm[Hg] Oziel Culp MD Work Phone: [facility] 01-15-2025 13:55-0400 Body temperature 97.59 [degF] Rosalino Padron MD Work Phone: [facility] 12-24-2024 00:02-0400 Body temperature 98 [degF] Dr. Toni Vann MD Work Phone: [facility] 12-24-2024 00:02-0400 Diastolic blood pressure 59 mm[Hg] Dr. Toni Vann MD Work Phone: [facility] 12-24-2024 00:02-0400 Heart rate 86 /min Dr. Toni Vann MD Work Phone: [facility] 12-24-2024 00:02-0400 Respiratory rate 15 /min Dr. Toni Vann MD Work Phone: [facility] 12-24-2024 00:02-0400 SaO2% (BldA) [Mass fraction] 99 % Dr. Toni Vann MD Work Phone: 3(250)923-503196 [place] [address] 12-24-2024 00:02-0400 Systolic blood pressure 105 mm[Hg] Dr. Toni Vann MD Work Phone: 2(354)272-893487 [place] [address] 12-23-2024 22:00-0400 Inhaled oxygen flow rate 4 L/min Dr. Toni Vann MD Work Phone: 4(052)388-774487 [place] [address] 12-23-2024 20:30-0400 Body height 175.[address] Toni Vann MD Work Phone: 3(098)728-067187 [place] [address] 12-23-2024 20:30-0400 Body mass index (BMI) [Ratio] 46.8 kg/m2 Dr. Toni Vann MD Work Phone: 4(940)535-164287 [place] [address] 12-23-2024 20:30-0400 Body weight [address] Toni Vann MD Work Phone: 1(243)619-932987 [place] [address] 12-17-2024 15:39-0400 Body temperature 97.5 [degF] Dr. Toni Vann MD Work Phone: 6(852)287-614487 [place] [address] 12-17-2024 15:39-0400 Diastolic blood pressure 51 mm[Hg] Dr. Toni Vann MD Work Phone: 5(474)284-328587 [place] [address] 12-17-2024 15:39-0400 Heart rate 73 /min Dr. Toni Vann MD Work Phone: 0(612)600-881187 [place] [address] 12-17-2024 15:39-0400 Respiratory rate 18 /min Dr. Toni Vann MD Work Phone: 5(614)383-173887 [place] [address] 12-17-2024 15:39-0400 SaO2% (BldA) [Mass fraction] 100 % Dr. Toni Vann MD Work Phone: 2(705)525-714587 [place] [address] 12-17-2024 15:39-0400 Systolic blood pressure 90 mm[Hg] Dr. Toni Vann MD Work Phone: 3(774)656-496387 [place] [address] 12-17-2024 13:59-0400 Inhaled oxygen flow rate 5 L/min Dr. Toni Vann MD Work Phone: [facility] 12-17-2024 10:33-0400 Body temperature 96.7 [degF] Dr. Toni Vann MD Work Phone: [facility] 12-17-2024 10:33-0400 Diastolic blood pressure 64 mm[Hg] Dr. Toni Vann MD Work Phone: [facility] 12-17-2024 10:33-0400 Heart rate 101 /min Dr. Toni Vann MD Work Phone: [facility] 12-17-2024 10:33-0400 Respiratory rate 18 /min Dr. Toni Vann MD Work Phone: [facility] 12-17-2024 10:33-0400 Systolic blood pressure 103 mm[Hg] Dr. Toni Vann MD Work Phone: [facility] 12-10-2024 14:53-0400 Diastolic blood pressure 53 mm[Hg] Dr. Radha Khan MD Work Phone: [facility] 12-10-2024 14:53-0400 Heart rate 77 /min Dr. Radha Khan MD Work Phone: [facility] 12-10-2024 14:53-0400 Respiratory rate 16 /min Dr. Radha Khan MD Work Phone: [facility] 12-10-2024 14:53-0400 SaO2% (BldA) [Mass fraction] 99 % Dr. Radha Khan MD Work Phone: [facility] 12-10-2024 14:53-0400 Systolic blood pressure 113 mm[Hg] Dr. Radha Khan MD Work Phone: [facility] 12-10-2024 13:27-0400 Body height 175.[address] Radha Khan MD Work Phone: [facility] 12-10-2024 13:27-0400 Body mass index (BMI) [Ratio] 45.4 kg/m2 Dr. Radha Khan MD Work Phone: 0(995)761-300905 [place] [address] 12-10-2024 13:27-0400 Body temperature 96 [degF] Dr. Radha Khan MD Work Phone: 6(271)993-854928 [place] [address] 12-10-2024 13:27-0400 Body weight 139.[address] Radha Khan MD Work Phone: 2(396)454-648228 [place] [address] 12-10-2024 13:27-0400 Inhaled oxygen flow rate 4 L/min Dr. Radha Khan MD Work Phone: 8(376)618-891128 [place] [address] 11-28-2024 13:55-0400 Inhaled oxygen flow rate 8 L/min Dr. Radha Khan MD Work Phone: 6(228)544-494628 [place] [address] 11-28-2024 13:55-0400 SaO2% (BldA) [Mass fraction] 93 % Dr. Radha Khan MD Work Phone: 8(041)750-413605 [place] [address] 11-28-2024 13:19-0400 Body temperature 97.6 [degF] Dr. Radha Khan MD Work Phone: 0(296)827-906423 [address] 11-28-2024 13:19-0400 Diastolic blood pressure 76 mm[Hg] Dr. Radha Khan MD Work Phone: 8(224)124-338223 [address] 11-28-2024 13:19-0400 Heart rate 97 /min Dr. Radha Khan MD Work Phone: 6(751)465-151505 [place] [address] 11-28-2024 13:19-0400 Respiratory rate 18 /min Dr. Radha Khan MD Work Phone: 2(891)171-885723 [address] 11-28-2024 13:19-0400 Systolic blood pressure 162 mm[Hg] Dr. Radha Khan MD Work Phone: 5(874)767-720423 [address] 11-26-2024 14:09-0400 Body height 175.[address] Radha Khan MD Work Phone: 5(366)306-247523 [address] 11-26-2024 14:09-0400 Body weight 147.[address] Radha Khan MD Work Phone: [facility] 11-26-2024 13:21-0400 Body mass index (BMI) [Ratio] 48.1 kg/m2 Dr. Radha Khan MD Work Phone: [facility] 11-26-2024 12:39-0400 Body temperature 99.4 [degF] Dr. Radha Khan MD Work Phone: [facility] 11-26-2024 12:39-0400 Diastolic blood pressure 60 mm[Hg] Dr. Radha Khan MD Work Phone: [facility] 11-26-2024 12:39-0400 Heart rate 85 /min Dr. Radha Khan MD Work Phone: [facility] 11-26-2024 12:39-0400 Respiratory rate 22 /min Dr. Radha Khan MD Work Phone: [facility] 11-26-2024 12:39-0400 SaO2% (BldA) [Mass fraction] 100 % Dr. Radha Khan MD Work Phone: [facility] 11-26-2024 12:39-0400 Systolic blood pressure 119 mm[Hg] Dr. Radha Khan MD Work Phone: [facility] 11-26-2024 11:54-0400 Inhaled oxygen flow rate 4 L/min Dr. Radha Khan MD Work Phone: [facility] 11-26-2024 09:16-0400 Body height 175.[address] Radha Khan MD Work Phone: [facility] 11-26-2024 09:16-0400 Body mass index (BMI) [Ratio] 47.2 kg/m2 Dr. Radha Khan MD Work Phone: [facility] 11-26-2024 09:16-0400 Body weight 145.[address] Radha Khan MD Work Phone: [facility] 11-25-2024 08:20-0400 Body mass index (BMI) [Ratio] 48.2 kg/m2 Dr. Radha Khan MD Work Phone: [facility] 11-25-2024 08:20-0400 Body temperature 97.4 [degF] Dr. Radha Khan MD Work Phone: [facility] 11-25-2024 08:20-0400 Body weight 148.[address] Radha Khan MD Work Phone: [facility] 11-25-2024 08:20-0400 Diastolic blood pressure 74 mm[Hg] Dr. Radha Khan MD Work Phone: 1(650)667-549723 [address] 11-25-2024 08:20-0400 Heart rate 76 /min Dr. Radha Khan MD Work Phone: 0(368)587-424305 [place] [address] 11-25-2024 08:20-0400 Inhaled oxygen flow rate 4 L/min Dr. Radha Khan MD Work Phone: [facility] 11-25-2024 08:20-0400 Respiratory rate 20 /min Dr. Radha Khan MD Work Phone: [facility] 11-25-2024 08:20-0400 SaO2% (BldA) [Mass fraction] 99 % Dr. Radha Khan MD Work Phone: [facility] 11-25-2024 08:20-0400 Systolic blood pressure 112 mm[Hg] Dr. Radha Khan MD Work Phone: [facility] 11-13-2024 13:01-0400 Body mass index (BMI) [Ratio] 50.06 kg/m2 Rosalino Padron MD Work Phone: [facility] 11-13-2024 13:01-0400 Body temperature 97 [degF] Rosalino Padron MD Work Phone: [facility] 11-13-2024 13:01-0400 Body weight 153.77 kg Rosalino Padron MD Work Phone: [facility] 11-13-2024 13:01-0400 Diastolic blood pressure 69 mm[Hg] Rosalino Padron MD Work Phone: [facility] 11-13-2024 13:01-0400 Heart rate 74 /min Rosalino Padron MD Work Phone: [facility] 11-13-2024 13:01-0400 SaO2% (BldA) [Mass fraction] 98 % Rosalino Padron MD Work Phone: [facility] Comment on above: pt on 4L O2 11-13-2024 13:01-0400 Systolic blood pressure 114 mm[Hg] Rosalino Padron MD Work Phone: [facility] 11-12-2024 10:51-0400 Body height 175.[address] Radha Khan MD Work Phone: [facility] 11-12-2024 10:51-0400 Body mass index (BMI) [Ratio] 49.8 kg/m2 Dr. Radha Khan MD Work Phone: [facility] 11-12-2024 10:51-0400 Body weight 153.[address] Radha Khan MD Work Phone: [facility] 11-12-2024 10:51-0400 Diastolic blood pressure 70 mm[Hg] Dr. Radha Khan MD Work Phone: [facility] 11-12-2024 10:51-0400 Heart rate 84 /min Dr. Radha Khan MD Work Phone: [facility] 11-12-2024 10:51-0400 Inhaled oxygen flow rate 4 L/min Dr. Radha Khan MD Work Phone: [facility] 11-12-2024 10:51-0400 Respiratory rate 15 /min Dr. Radha Khan MD Work Phone: [facility] 11-12-2024 10:51-0400 SaO2% (BldA) [Mass fraction] 93 % Dr. Radha Khan MD Work Phone: [facility] 11-12-2024 10:51-0400 Systolic blood pressure 116 mm[Hg] Dr. Radha Khan MD Work Phone: 7(146)398-133305 [place] [address] 11-03-2024 13:42-0400 Body height 175.[address] Radha Khan MD Work Phone: 0(177)465-177523 [address] 11-03-2024 13:42-0400 Body mass index (BMI) [Ratio] 49.9 kg/m2 Dr. Radha Khan MD Work Phone: 5(596)501-781028 [place] [address] 11-03-2024 13:42-0400 Body temperature 97.9 [degF] Dr. Radha Khan MD Work Phone: 4(114)275-915128 [place] [address] 11-03-2024 13:42-0400 Body weight 153.[address] Radha Khan MD Work Phone: 1(938)541-544405 [place] [address] 11-03-2024 13:42-0400 Diastolic blood pressure 60 mm[Hg] Dr. Radha Khan MD Work Phone: 0(606)503-145905 [place] [address] 11-03-2024 13:42-0400 Heart rate 85 /min Dr. Radha Khan MD Work Phone: 6(116)422-696805 [place] [address] 11-03-2024 13:42-0400 Inhaled oxygen flow rate 4 L/min Dr. Radha Khan MD Work Phone: 3(017)595-497305 [place] [address] 11-03-2024 13:42-0400 Respiratory rate 18 /min Dr. Radha Khan MD Work Phone: 3(874)634-535405 [place] [address] 11-03-2024 13:42-0400 SaO2% (BldA) [Mass fraction] 98 % Dr. Radha Khan MD Work Phone: 1(817)238-562005 [place] [address] 11-03-2024 13:42-0400 Systolic blood pressure 86 mm[Hg] Dr. Radha Khan MD Work Phone: [facility] 10-27-2024 10:19-0400 Body height 175.[address] Radha Khan MD Work Phone: [facility] 10-27-2024 10:19-0400 Body mass index (BMI) [Ratio] 48.9 kg/m2 Dr. Radha Khan MD Work Phone: [facility] 10-27-2024 10:19-0400 Body weight 150.[address] Radha Khan MD Work Phone: [facility] 10-27-2024 10:19-0400 Diastolic blood pressure 79 mm[Hg] Dr. Radha Khan MD Work Phone: [facility] 10-27-2024 10:19-0400 Heart rate 65 /min Dr. Radha Khan MD Work Phone: 5(612)092-885405 [place] [address] 10-27-2024 10:19-0400 Respiratory rate 20 /min Dr. Radha Khan MD Work Phone: [facility] 10-27-2024 10:19-0400 Systolic blood pressure 136 mm[Hg] Dr. Radha Khan MD Work Phone: [facility] 10-12-2024 10:52-0400 Body height 175.[address] Radha Khan MD Work Phone: [facility] 10-12-2024 10:52-0400 Body mass index (BMI) [Ratio] 47.4 kg/m2 Dr. Radha Khan MD Work Phone: [facility] 10-12-2024 10:52-0400 Body temperature 98.2 [degF] Dr. Radha Khan MD Work Phone: [facility] 10-12-2024 10:52-0400 Body weight 145.[address] Rdaha Khan MD Work Phone: [facility] 10-12-2024 10:52-0400 Diastolic blood pressure 81 mm[Hg] Dr. Radha Khan MD Work Phone: [facility] 10-12-2024 10:52-0400 Heart rate 81 /min Dr. Radha Khan MD Work Phone: [facility] 10-12-2024 10:52-0400 Inhaled oxygen flow rate 4 L/min Dr. Radha Khan MD Work Phone: 8(791)678-187028 [place] [address] 10-12-2024 10:52-0400 Respiratory rate 17 /min Dr. Radha Khan MD Work Phone: 1(448)462-110523 [address] 10-12-2024 10:52-0400 SaO2% (BldA) [Mass fraction] 96 % Dr. Radha Khan MD Work Phone: 3(899)633-976023 [address] 10-12-2024 10:52-0400 Systolic blood pressure 150 mm[Hg] Dr. Radha Khan MD Work Phone: 0(760)820-834328 [place] [address] 09-28-2024 15:00-0400 Body mass index (BMI) [Ratio] 47.7 kg/m2 Dr. Radha Khan MD Work Phone: 9(197)776-508428 [place] [address] 09-28-2024 14:46-0400 Body temperature 97.5 [degF] Dr. Radha Khan MD Work Phone: 2(414)052-019428 [place] [address] 09-28-2024 14:46-0400 Diastolic blood pressure 76 mm[Hg] Dr. Radha Khan MD Work Phone: 9(680)444-066028 [place] [address] 09-28-2024 14:46-0400 Heart rate 77 /min Dr. Radha Khan MD Work Phone: 8(178)694-615223 [address] 09-28-2024 14:46-0400 Inhaled oxygen flow rate 4 L/min Dr. Radha Khan MD Work Phone: 6(088)349-241428 [place] [address] 09-28-2024 14:46-0400 Respiratory rate 18 /min Dr. Radha Khan MD Work Phone: 8(808)647-936823 [address] 09-28-2024 14:46-0400 SaO2% (BldA) [Mass fraction] 97 % Dr. Radha Khan MD Work Phone: 4(596)115-589205 [place] [address] 09-28-2024 14:46-0400 Systolic blood pressure 141 mm[Hg] Dr. Radha Khan MD Work Phone: 2(298)258-164728 [place] [address] 09-28-2024 13:26-0400 Body temperature 97.9 [degF] Dr. Radha Khan MD Work Phone: 3(173)855-820028 [place] [address] 09-28-2024 13:26-0400 Diastolic blood pressure 65 mm[Hg] Dr. Radha Khan MD Work Phone: 4(820)152-814128 [place] [address] 09-28-2024 13:26-0400 Heart rate 77 /min Dr. Radha Khan MD Work Phone: 0(600)561-998628 [place] [address] 09-28-2024 13:26-0400 Respiratory rate 16 /min Dr. Radha Khan MD Work Phone: 7(755)338-901728 [place] [address] 09-28-2024 13:26-0400 SaO2% (BldA) [Mass fraction] 98 % Dr. Radha Khan MD Work Phone: 4(934)106-923028 [place] [address] 09-28-2024 13:26-0400 Systolic blood pressure 139 mm[Hg] Dr. Radha Khan MD Work Phone: 5(833)570-707928 [place] [address] 09-27-2024 23:37-0400 Body mass index (BMI) [Ratio] 47.7 kg/m2 Dr. Radha Khan MD Work Phone: 1(187)076-605128 [place] [address] 09-27-2024 10:10-0400 Body height 175.[address] Radha Khan MD Work Phone: 1(634)731-786828 [place] [address] 09-27-2024 10:10-0400 Body weight 146.[address] Radha Khan MD Work Phone: 1(228)257-290228 [place] [address] 09-26-2024 18:10-0400 Body temperature 97.8 [degF] Dr. Radha Khan MD Work Phone: 9(850)349-675428 [place] [address] 09-26-2024 18:10-0400 Diastolic blood pressure 64 mm[Hg] Dr. Radha Khan MD Work Phone: [facility] 09-26-2024 18:10-0400 Heart rate 74 /min Dr. Radha Khan MD Work Phone: [facility] 09-26-2024 18:10-0400 Respiratory rate 26 /min Dr. Radha Khan MD Work Phone: [facility] 09-26-2024 18:10-0400 SaO2% (BldA) [Mass fraction] 94 % Dr. Radha Khan MD Work Phone: [facility] 09-26-2024 18:10-0400 Systolic blood pressure 133 mm[Hg] Dr. Radha Khan MD Work Phone: [facility] [facility] 09-26-2024 17:19-0400 Inhaled oxygen flow rate 4 L/min Dr. Radha Khan MD Work Phone: [facility] 09-26-2024 15:29-0400 Body height 175.[address] Radha Khan MD Work Phone: [facility] 09-24-2024 09:55-0400 Diastolic blood pressure 54 mm[Hg] Dick Nguyen MD Work Phone: [facility] 09-24-2024 09:55-0400 Heart rate 59 /min Dick Nguyen MD Work Phone: [facility] 09-24-2024 09:55-0400 Respiratory rate 20 /min Dick Nguyen MD Work Phone: [facility] 09-24-2024 09:55-0400 SaO2% (BldA) [Mass fraction] 100 % Dick Nguyen MD Work Phone: [facility] 09-24-2024 09:55-0400 Systolic blood pressure 119 mm[Hg] Dick Nguyen MD Work Phone: [facility] 09-24-2024 09:03-0400 Diastolic blood pressure 69 mm[Hg] Dick Nguyen MD Work Phone: [facility] 09-24-2024 09:03-0400 Systolic blood pressure 100 mm[Hg] Dick Nguyen MD Work Phone: [facility] 09-24-2024 08:55-0400 Body temperature 96.8 [degF] Dick Nguyen MD Work Phone: [facility] 09-24-2024 08:55-0400 Heart rate 57 /min iDck Nguyen MD Work Phone: 8(213)667-327420 [place] [address] 09-24-2024 08:55-0400 Respiratory rate 29 /min Dick Nguyen MD Work Phone: [facility] 09-24-2024 08:55-0400 SaO2% (BldA) [Mass fraction] 96 % Dick Nguyen MD Work Phone: [facility] 09-24-2024 06:54-0400 Body height 175.3 cm Dick Nguyen MD Work Phone: [facility] 09-24-2024 06:54-0400 Body mass index (BMI) [Ratio] 47.85 kg/m2 Dikc Nguyen MD Work Phone: [facility] 09-24-2024 06:54-0400 Body weight 146.97 kg Dick Nguyen MD Work Phone: [facility] 09-16-2024 10:01-0400 Body height 175.[address] Radha Khan MD Work Phone: [facility] 09-16-2024 10:01-0400 Body mass index (BMI) [Ratio] 48.1 kg/m2 Dr. Radha Khan MD Work Phone: [facility] 09-16-2024 10:01-0400 Body weight 147.[address] Radha Khan MD Work Phone: [facility] 09-16-2024 10:01-0400 Diastolic blood pressure 70 mm[Hg] Dr. Radha Khan MD Work Phone: [facility] 09-16-2024 10:01-0400 Heart rate 72 /min Dr. Radha Khan MD Work Phone: [facility] 09-16-2024 10:01-0400 SaO2% (BldA) [Mass fraction] 96 % Dr. Radha Khan MD Work Phone: 0(108)879-727005 [place] [address] 09-16-2024 10:01-0400 Systolic blood pressure 109 mm[Hg] Dr. Radha Khan MD Work Phone: 8(927)365-767128 [place] [address] 09-15-2024 12:59-0400 Body height 175.[address] Radha Khan MD Work Phone: 5(356)960-619828 [place] [address] 09-15-2024 12:59-0400 Body mass index (BMI) [Ratio] 47.8 kg/m2 Dr. Radha Khan MD Work Phone: 8(302)846-109123 [address] 09-15-2024 12:59-0400 Body temperature 98.2 [degF] Dr. Radha Khan MD Work Phone: 3(448)464-214105 [place] [address] 09-15-2024 12:59-0400 Body weight 146.[address] Radha Khan MD Work Phone: [facility] 09-15-2024 12:59-0400 Diastolic blood pressure 59 mm[Hg] Dr. Radha Khan MD Work Phone: 1(205)190-897723 [address] 09-15-2024 12:59-0400 Heart rate 82 /min Dr. Radha Khan MD Work Phone: [facility] 09-15-2024 12:59-0400 Inhaled oxygen flow rate 4 L/min Dr. Radha Khan MD Work Phone: [facility] 09-15-2024 12:59-0400 Respiratory rate 17 /min Dr. Radha Khan MD Work Phone: [facility] 09-15-2024 12:59-0400 SaO2% (BldA) [Mass fraction] 94 % Dr. Radha Khan MD Work Phone: [facility] 09-15-2024 12:59-0400 Systolic blood pressure 104 mm[Hg] Dr. Radha Khan MD Work Phone: [facility] 08-28-2024 11:58-0400 Body temperature 97.9 [degF] Rosalino Padron MD Work Phone: [facility] 08-28-2024 11:58-0400 Body weight 143.79 kg Rosalino Padron MD Work Phone: [facility] 08-28-2024 11:58-0400 Diastolic blood pressure 70 mm[Hg] Rosalino Padron MD Work Phone: [facility] 08-28-2024 11:58-0400 Heart rate 76 /min Rosalino Padron MD Work Phone: [facility] 08-28-2024 11:58-0400 SaO2% (BldA) [Mass fraction] 95 % Rosalino Padron MD Work Phone: [facility] Comment on above: 4L O2 08-28-2024 11:58-0400 Systolic blood pressure 125 mm[Hg] Rosalino Padron MD Work Phone: [facility] 08-17-2024 11:25-0400 Body height 175.[address] Radha Khan MD Work Phone: [facility] 08-17-2024 11:25-0400 Body mass index (BMI) [Ratio] 46 kg/m2 Dr. Radha Khan MD Work Phone: [facility] 08-17-2024 11:25-0400 Body temperature 98.2 [degF] Dr. Radha Khan MD Work Phone: [facility] 08-17-2024 11:25-0400 Body weight 141.[address] Radha Khan MD Work Phone: [facility] 08-17-2024 11:25-0400 Diastolic blood pressure 70 mm[Hg] Dr. Radha Khan MD Work Phone: [facility] 08-17-2024 11:25-0400 Heart rate 74 /min Dr. Radha hKan MD Work Phone: [facility] 08-17-2024 11:25-0400 Inhaled oxygen flow rate 4 L/min Dr. Radha Khan MD Work Phone: [facility] 08-17-2024 11:25-0400 Respiratory rate 16 /min Dr. Radha Khan MD Work Phone: [facility] 08-17-2024 11:25-0400 SaO2% (BldA) [Mass fraction] 96 % Dr. Radha Khan MD Work Phone: [facility] 08-17-2024 11:25-0400 Systolic blood pressure 119 mm[Hg] Dr. Radha Khan MD Work Phone: [facility] 08-07-2024 14:09-0400 Body temperature 98.01 [degF] Rosalino Padron MD Work Phone: [facility] 08-07-2024 14:09-0400 Body weight 141.98 kg Rosalino Padron MD Work Phone: [facility] 08-07-2024 14:09-0400 Diastolic blood pressure 58 mm[Hg] Rosalino Padron MD Work Phone: [facility] 08-07-2024 14:09-0400 Heart rate 81 /min Rosalino Padron MD Work Phone: [facility] 08-07-2024 14:09-0400 SaO2% (BldA) [Mass fraction] 98 % Rosalino Padron MD Work Phone: [facility] 08-07-2024 14:09-0400 Systolic blood pressure 92 mm[Hg] Rosalino Padron MD Work Phone: [facility] 08-06-2024 14:41-0400 Body temperature 98.2 [degF] Dr. Radha Khan MD Work Phone: [facility] 08-06-2024 14:41-0400 Body weight 142.[address] Radha Khan MD Work Phone: [facility] 08-06-2024 14:41-0400 Diastolic blood pressure 69 mm[Hg] Dr. Radha Khan MD Work Phone: [facility] 08-06-2024 14:41-0400 Heart rate 80 /min Dr. Radha Khan MD Work Phone: [facility] 08-06-2024 14:41-0400 Inhaled oxygen flow rate 8 L/min Dr. Radha Khan MD Work Phone: [facility] 08-06-2024 14:41-0400 Respiratory rate 17 /min Dr. Radha Khan MD Work Phone: [facility] 08-06-2024 14:41-0400 SaO2% (BldA) [Mass fraction] 94 % Dr. Radha Khan MD Work Phone: [facility] 08-06-2024 14:41-0400 Systolic blood pressure 99 mm[Hg] Dr. Radha Khan MD Work Phone: [facility] 07-06-2024 13:44-0400 Body temperature 98.2 [degF] Dr. Radha Khan MD Work Phone: [facility] 07-06-2024 13:44-0400 Body weight 139.[address] Radha Khan MD Work Phone: [facility] 07-06-2024 13:44-0400 Diastolic blood pressure 68 mm[Hg] Dr. Radha Khan MD Work Phone: [facility] 07-06-2024 13:44-0400 Heart rate 91 /min Dr. Radha Khan MD Work Phone: [facility] 07-06-2024 13:44-0400 Inhaled oxygen flow rate 4 L/min Dr. Radha Khan MD Work Phone: [facility] 07-06-2024 13:44-0400 Respiratory rate 17 /min Dr. Radha Khan MD Work Phone: [facility] 07-06-2024 13:44-0400 SaO2% (BldA) [Mass fraction] 97 % Dr. Radha Khan MD Work Phone: [facility] 07-06-2024 13:44-0400 Systolic blood pressure 110 mm[Hg] Dr. Radha Khan MD Work Phone: [facility] 06-26-2024 11:10-0400 Body temperature 97.59 [degF] Rosalino Padron MD Work Phone: [facility] 06-26-2024 11:10-0400 Body weight 141.07 kg Rosalino Padron MD Work Phone: [facility] 06-26-2024 11:10-0400 Diastolic blood pressure 78 mm[Hg] Rosalino Padron MD Work Phone: [facility] 06-26-2024 11:10-0400 Heart rate 76 /min Rosalino Padron MD Work Phone: [facility] 06-26-2024 11:10-0400 SaO2% (BldA) [Mass fraction] 98 % Rosalino Padron MD Work Phone: [facility] Comment on above: pt on 4L O2 06-26-2024 11:10-0400 Systolic blood pressure 157 mm[Hg] Rosalino Padron MD Work Phone: [facility] 06-10-2024 08:19-0400 Body mass index (BMI) [Ratio] 45.3 kg/m2 Dr. Radha Khan MD Work Phone: [facility] 06-10-2024 08:19-0400 Body temperature 97.2 [degF] Dr. Radha Khan MD Work Phone: [facility] 06-10-2024 08:19-0400 Body weight 139.[address] Radha Khan MD Work Phone: 8(324)106-981523 [address] 06-10-2024 08:19-0400 Diastolic blood pressure 76 mm[Hg] Dr. Radha Khan MD Work Phone: 8(427)627-689428 [place] [address] 06-10-2024 08:19-0400 Heart rate 59 /min Dr. Radha Khan MD Work Phone: 0(571)133-204928 [place] [address] 06-10-2024 08:19-0400 Inhaled oxygen flow rate 4 L/min Dr. Radha Khan MD Work Phone: 0(187)126-324528 [place] [address] 06-10-2024 08:19-0400 Respiratory rate 20 /min Dr. Radha Khan MD Work Phone: 6(212)214-714728 [place] [address] 06-10-2024 08:19-0400 SaO2% (BldA) [Mass fraction] 99 % Dr. Radha Khan MD Work Phone: 5(823)726-061923 [address] 06-10-2024 08:19-0400 Systolic blood pressure 115 mm[Hg] Dr. Radha Khan MD Work Phone: 3(494)599-763605 [place] [address] 06-04-2024 13:50-0500 Body height 175.[address] Radha Khan MD Work Phone: 5(714)769-400428 [place] [address] 06-04-2024 13:50-0500 Body mass index (BMI) [Ratio] 45.1 kg/m2 Dr. Radha Khan MD Work Phone: 5(841)994-629105 [place] [address] 06-04-2024 13:50-0500 Body temperature 97.8 [degF] Dr. Radha Khan MD Work Phone: 5(125)877-877123 [address] 06-04-2024 13:50-0500 Body weight 138.[address] Radha Khan MD Work Phone: [facility] 06-04-2024 13:50-0500 Diastolic blood pressure 61 mm[Hg] Dr. Radha Khan MD Work Phone: [facility] 06-04-2024 13:50-0500 Heart rate 59 /min Dr. Radha Khan MD Work Phone: 9(088)970-013405 [place] [address] 06-04-2024 13:50-0500 Inhaled oxygen flow rate 4 L/min Dr. Radha Khan MD Work Phone: 1(505)379-731205 [place] [address] 06-04-2024 13:50-0500 Respiratory rate 17 /min Dr. Radha Khan MD Work Phone: 1(882)440-971405 [place] [address] 06-04-2024 13:50-0500 SaO2% (BldA) [Mass fraction] 92 % Dr. Radha Khan MD Work Phone: [facility] 06-04-2024 13:50-0500 Systolic blood pressure 141 mm[Hg] Dr. Radha Khan MD Work Phone: 5(386)098-247405 [place] [address] 05-21-2024 10:44-0500 Body mass index (BMI) [Ratio] 43.7 kg/m2 Dr. Radha Khan MD Work Phone: 8(427)717-552505 [place] [address] 05-21-2024 10:44-0500 Body weight 134.[address] Radha Khan MD Work Phone: [facility] 05-21-2024 10:44-0500 Diastolic blood pressure 69 mm[Hg] Dr. Radha Khan MD Work Phone: 5(624)018-000605 [place] [address] 05-21-2024 10:44-0500 Heart rate 75 /min Dr. Radha Khan MD Work Phone: 4(863)191-529305 [place] [address] 05-21-2024 10:44-0500 Inhaled oxygen flow rate 4 L/min Dr. Radha Khan MD Work Phone: 0(380)503-637105 [place] [address] 05-21-2024 10:44-0500 Respiratory rate 18 /min Dr. Radha Khan MD Work Phone: [facility] 05-21-2024 10:44-0500 SaO2% (BldA) [Mass fraction] 100 % Dr. Radha Khan MD Work Phone: [facility] 05-21-2024 10:44-0500 Systolic blood pressure 105 mm[Hg] Dr. Radha Khan MD Work Phone: [facility] 05-06-2024 08:35-0500 Body temperature 96.69 [degF] Mey [employer]z [employer] Work Phone: [facility] 05-06-2024 08:35-0500 Diastolic blood pressure 63 mm[Hg] Mey Bosz [employer] - [employer] Work Phone: [facility] 05-06-2024 08:35-0500 Heart rate 72 /min Mey Bosz [employer] - [employer]ING [employer] Work Phone: [facility] 05-06-2024 08:35-0500 Respiratory rate 20 /min Mey Bosz [employer] - [employer] Work Phone: [facility] 05-06-2024 08:35-0500 SaO2% (BldA) [Mass fraction] 95 % Mey Bosz [employer] A[employer] - [employer]ING [employer] Work Phone: [facility] 05-06-2024 08:35-0500 Systolic blood pressure 112 mm[Hg] Mey Bosz [employer] - [employer] Work Phone: [facility] 05-05-2024 13:14-0500 Body temperature 98 [degF] Dr. Radha Khan MD Work Phone: [facility] 05-05-2024 13:14-0500 Diastolic blood pressure 63 mm[Hg] Dr. Radha Khan MD Work Phone: [facility] 05-05-2024 13:14-0500 Heart rate 66 /min Dr. Radha Khan MD Work Phone: [facility] 05-05-2024 13:14-0500 Respiratory rate 18 /min Dr. Radha Khan MD Work Phone: 2(585)730-579805 [place] [address] 05-05-2024 13:14-0500 SaO2% (BldA) [Mass fraction] 100 % Dr. Radha Khan MD Work Phone: 6(731)987-932105 [place] [address] 05-05-2024 13:14-0500 Systolic blood pressure 101 mm[Hg] Dr. Radha Khan MD Work Phone: 1(174)485-359528 [place] [address] 05-01-2024 12:31-0500 Body mass index (BMI) [Ratio] 44.4 kg/m2 Dr. Radha Khan MD Work Phone: 8(665)638-359128 [place] [address] 05-01-2024 12:31-0500 Body temperature 98.3 [degF] Dr. Radha Khan MD Work Phone: 3(411)096-466128 [place] [address] 05-01-2024 12:31-0500 Body weight 136.[address] Radha Khan MD Work Phone: 0(398)131-259728 [place] [address] 05-01-2024 12:31-0500 Diastolic blood pressure 60 mm[Hg] Dr. Radha Khan MD Work Phone: 4(551)641-195228 [place] [address] 05-01-2024 12:31-0500 Heart rate 70 /min Dr. Radha Khan MD Work Phone: 1(868)364-675028 [place] [address] 05-01-2024 12:31-0500 Inhaled oxygen flow rate 4 L/min Dr. Radha Khan MD Work Phone: 3(601)823-549023 [address] 05-01-2024 12:31-0500 Respiratory rate 18 /min Dr. Radha Khan MD Work Phone: 6(317)854-096328 [place] [address] 05-01-2024 12:31-0500 SaO2% (BldA) [Mass fraction] 100 % Dr. Radha Khan MD Work Phone: 1(930)481-641723 [address] 05-01-2024 12:31-0500 Systolic blood pressure 97 mm[Hg] Dr. Radha Khan MD Work Phone: [facility] 04-30-2024 14:32-0500 Body temperature 97.4 [degF] Dr. Radha Khan MD Work Phone: 9(496)459-266828 [place] [address] 04-30-2024 14:32-0500 Body weight 138.[address] Radha Khan MD Work Phone: 4(079)510-292728 [place] [address] 04-30-2024 14:32-0500 Diastolic blood pressure 58 mm[Hg] Dr. Radha Khan MD Work Phone: 6(511)996-139028 [place] [address] 04-30-2024 14:32-0500 Heart rate 73 /min Dr. Radha Khan MD Work Phone: 8(541)052-804028 [place] [address] 04-30-2024 14:32-0500 Inhaled oxygen flow rate 4 L/min Dr. Radha Khan MD Work Phone: 3(216)044-379428 [place] [address] 04-30-2024 14:32-0500 Respiratory rate 18 /min Dr. Radha Khan MD Work Phone: 8(727)949-284928 [place] [address] 04-30-2024 14:32-0500 SaO2% (BldA) [Mass fraction] 94 % Dr. Radha Khan MD Work Phone: 3(978)504-949928 [place] [address] 04-30-2024 14:32-0500 Systolic blood pressure 111 mm[Hg] Dr. Radha Khan MD Work Phone: 7(968)919-009228 [place] [address] 04-30-2024 13:26-0500 Body mass index (BMI) [Ratio] 44.7 kg/m2 Dr. Radha Khan MD Work Phone: 4(058)917-026428 [place] [address] 04-30-2024 13:26-0500 Body weight 137.[address] Radha Khan MD Work Phone: 6(429)816-373228 [place] [address] 04-30-2024 13:26-0500 Diastolic blood pressure 55 mm[Hg] Dr. Radha Khan MD Work Phone: 0(120)564-338228 [place] [address] 04-30-2024 13:26-0500 Heart rate 69 /min Dr. Radha Khan MD Work Phone: 0(724)521-648805 [place] [address] 04-30-2024 13:26-0500 Respiratory rate 18 /min Dr. Radha Khan MD Work Phone: 0(599)402-612028 [place] [address] 04-30-2024 13:26-0500 Systolic blood pressure 97 mm[Hg] Dr. Radha Khan MD Work Phone: 2(389)457-383128 [place] [address] 04-30-2024 11:30-0500 Body mass index (BMI) [Ratio] 44.7 kg/m2 Dr. Radha Khan MD Work Phone: 9(298)834-555528 [place] [address] 04-30-2024 11:30-0500 Body temperature 98.2 [degF] Dr. Radha Khan MD Work Phone: 9(886)900-963928 [place] [address] 04-30-2024 11:30-0500 Body weight 137.[address] Radha Khan MD Work Phone: 7(263)193-939228 [place] [address] 04-30-2024 11:30-0500 Diastolic blood pressure 74 mm[Hg] Dr. Radha Khan MD Work Phone: 3(607)489-142528 [place] [address] 04-30-2024 11:30-0500 Heart rate 80 /min Dr. Radha Khan MD Work Phone: 9(787)277-512328 [place] [address] 04-30-2024 11:30-0500 Inhaled oxygen flow rate 4 L/min Dr. Radha Khan MD Work Phone: 7(072)750-173728 [place] [address] 04-30-2024 11:30-0500 Respiratory rate 17 /min Dr. Radha Khan MD Work Phone: 0(004)412-035628 [place] [address] 04-30-2024 11:30-0500 SaO2% (BldA) [Mass fraction] 95 % Dr. Radha Khan MD Work Phone: 5(103)000-198128 [place] [address] 04-30-2024 11:30-0500 Systolic blood pressure 120 mm[Hg] Dr. Radha Khan MD Work Phone: 7(350)281-342628 [place] [address] 04-27-2024 14:43-0500 Body height 175.3 cm Suzy Jauregui MD Work Phone: [facility] 04-27-2024 14:43-0500 Body mass index (BMI) [Ratio] 46.07 kg/m2 Suzy Jauregui MD Work Phone: [facility] 04-27-2024 14:43-0500 Body weight 141.52 kg Suzy Jauregui MD Work Phone: [facility] 04-27-2024 14:43-0500 Diastolic blood pressure 60 mm[Hg] Suzy Jauregui MD Work Phone: [facility] 04-27-2024 14:43-0500 Heart rate 75 /min Suzy Jauregui MD Work Phone: [facility] 04-27-2024 14:43-0500 Respiratory rate 18 /min Suzy Jauregui MD Work Phone: [facility] 04-27-2024 14:43-0500 SaO2% (BldA) [Mass fraction] 95 % Suzy Jauregui MD Work Phone: [facility] 04-27-2024 14:43-0500 Systolic blood pressure 122 mm[Hg] Suzy Jauregui MD Work Phone: [facility] 04-25-2024 16:19-0500 Body mass index (BMI) [Ratio] 44.6 kg/m2 Dr. Radha Khan MD Work Phone: [facility] 04-25-2024 14:00-0500 Body temperature 98.5 [degF] Dr. Radha Khan MD Work Phone: [facility] 04-25-2024 14:00-0500 Diastolic blood pressure 54 mm[Hg] Dr. Radha Khan MD Work Phone: [facility] 04-25-2024 14:00-0500 Heart rate 93 /min Dr. Radha Khan MD Work Phone: [facility] 04-25-2024 14:00-0500 Inhaled oxygen flow rate 3.5 L/min Dr. Radha Khan MD Work Phone: [facility] 04-25-2024 14:00-0500 Respiratory rate 16 /min Dr. Radha Khan MD Work Phone: [facility] 04-25-2024 14:00-0500 SaO2% (BldA) [Mass fraction] 100 % Dr. Radha Khan MD Work Phone: 4(186)139-064605 [place] [address] 04-25-2024 14:00-0500 Systolic blood pressure 113 mm[Hg] Dr. Radha Khan MD Work Phone: 1(430)286-885505 [place] [address] 04-25-2024 09:20-0500 Body weight 137.[address] Radha Khan MD Work Phone: 1(958)118-821428 [place] [address] 04-22-2024 09:35-0500 Body mass index (BMI) [Ratio] 45.6 kg/m2 Dr. Radha Khan MD Work Phone: 4(589)539-377228 [place] [address] 04-22-2024 09:35-0500 Body temperature 97.3 [degF] Dr. Radha Khan MD Work Phone: 0(502)166-670828 [place] [address] 04-22-2024 09:35-0500 Body weight 140.[address] Radha Khan MD Work Phone: 8(725)353-629905 [place] [address] 04-22-2024 09:35-0500 Diastolic blood pressure 76 mm[Hg] Dr. Radha Khan MD Work Phone: 7(300)921-156305 [place] [address] 04-22-2024 09:35-0500 Heart rate 67 /min Dr. Radha Khan MD Work Phone: 0(972)992-814905 [place] [address] 04-22-2024 09:35-0500 Inhaled oxygen flow rate 4 L/min Dr. Radha Khan MD Work Phone: 8(338)135-387305 [place] [address] 04-22-2024 09:35-0500 Respiratory rate 20 /min Dr. Radha Khan MD Work Phone: 8(026)913-576505 [place] [address] 04-22-2024 09:35-0500 SaO2% (BldA) [Mass fraction] 99 % Dr. Radha Khan MD Work Phone: [facility] 04-22-2024 09:35-0500 Systolic blood pressure 143 mm[Hg] Dr. Radha Khan MD Work Phone: [facility] 04-16-2024 09:22-0500 Body mass index (BMI) [Ratio] 44.9 kg/m2 Dr. Radha Khan MD Work Phone: 8(468)178-559605 [place] [address] 04-16-2024 09:22-0500 Body weight 138.[address] Radha Khan MD Work Phone: 3(373)757-470405 [place] [address] 04-16-2024 09:22-0500 Diastolic blood pressure 56 mm[Hg] Dr. Radha Khan MD Work Phone: 4(926)924-227605 [place] [address] 04-16-2024 09:22-0500 Heart rate 79 /min Dr. Radha Khan MD Work Phone: 6(774)550-511523 [address] 04-16-2024 09:22-0500 Inhaled oxygen flow rate 4 L/min Dr. Radha Khan MD Work Phone: 7(553)983-491723 [address] 04-16-2024 09:22-0500 SaO2% (BldA) [Mass fraction] 78 % Dr. Radha Khan MD Work Phone: 3(313)016-384905 [place] [address] 04-16-2024 09:22-0500 Systolic blood pressure 105 mm[Hg] Dr. Radha Khan MD Work Phone: [facility] 04-15-2024 16:08-0500 Inhaled oxygen flow rate 4 L/min Dr. Radha Khan MD Work Phone: 6(661)530-907205 [place] [address] 04-15-2024 14:26-0500 Body temperature 97.9 [degF] Dr. Radha Khan MD Work Phone: [facility] 04-15-2024 14:26-0500 Diastolic blood pressure 66 mm[Hg] Dr. Radha Khan MD Work Phone: 6(608)353-510023 [address] 04-15-2024 14:26-0500 Heart rate 79 /min Dr. Radha Khan MD Work Phone: [facility] 04-15-2024 14:26-0500 Respiratory rate 16 /min Dr. Radha Khan MD Work Phone: [facility] 04-15-2024 14:26-0500 SaO2% (BldA) [Mass fraction] 94 % Dr. Radha Khan MD Work Phone: [facility] 04-15-2024 14:26-0500 Systolic blood pressure 102 mm[Hg] Dr. Radha Khan MD Work Phone: [facility] 04-15-2024 03:24-0500 Body mass index (BMI) [Ratio] 44.5 kg/m2 Dr. Radha Khan MD Work Phone: [facility] 04-15-2024 03:24-0500 Body weight 136.[address] Radha Khan MD Work Phone: [facility] 04-13-2024 20:00-0500 Inhaled oxygen concentration 91 % Dr. Radha Khan MD Work Phone: [facility] 01-06-2024 10:49-0400 Body height 175.3 cm Oziel Culp MD Work Phone: [facility] 01-06-2024 10:49-0400 Body mass index (BMI) [Ratio] 46.07 kg/m2 Oziel Culp MD Work Phone: [facility] 01-06-2024 10:49-0400 Body weight 141.52 kg Oziel Culp MD Work Phone: [facility] 01-06-2024 10:49-0400 Diastolic blood pressure 72 mm[Hg] Oziel Culp MD Work Phone: [facility] 01-06-2024 10:49-0400 Heart rate 72 /min Oziel Culp MD Work Phone: [facility] 01-06-2024 10:49-0400 Systolic blood pressure 110 mm[Hg] Oziel Culp MD Work Phone: [facility] 10-05-2023 13:16-0400 Body temperature 97.39 [degF] Joe Rocha MD Work Phone: [facility] 10-05-2023 13:16-0400 Diastolic blood pressure 70 mm[Hg] Joe Rocha MD Work Phone: [facility] 10-05-2023 13:16-0400 Heart rate 83 /min Joe Rocha MD Work Phone: [facility] 10-05-2023 13:16-0400 Respiratory rate 20 /min Joe Rocha MD Work Phone: [facility] 10-05-2023 13:16-0400 SaO2% (BldA) [Mass fraction] 95 % Joe Rocha MD Work Phone: [facility] 10-05-2023 13:16-0400 Systolic blood pressure 107 mm[Hg] Joe Rocha MD Work Phone: [facility] 10-03-2023 15:30-0400 Body temperature 98.06 [degF] CHITO BUENROSTRO [employer] A[employer] [facility] 10-03-2023 15:30-0400 Diastolic Blood Pressure Non-Invasive 73 mm[Hg] CHITO BUENROSTRO [employer] A[employer] [facility] 10-03-2023 15:30-0400 Heart rate 82 /min CHITO BUENROSTRO [employer] A[employer] [facility] 10-03-2023 15:30-0400 Reason For Taking VItal Signs CHITO BUENROSTRO [employer]CIAL A[employer] [facility] 10-03-2023 15:30-0400 Respiratory rate 18 /min CHITO BUENROSTRO [employer]ATE FIN[employer]CIAL A[employer]ING [employer] [facility] 10-03-2023 15:30-0400 Systolic Blood Pressure Non-Invasive 109 mm[Hg] CHITO MEDLEY-GABRIELA [employer]PORATE FIN[employer]CIAL ANALYST[employer] [facility] 10-03-2023 13:12-0400 Reason For Taking VItal Signs CHITO MEDLEY-GABRIELA [employer]ATE FIN[employer]CIAL A[employer]LYST[employer] [facility] 10-03-2023 11:39-0400 Body temperature 98.24 [degF] CHITO MEDLEY-GABRIELA [employer]ATE FIN[employer]CIAL A[employer]ST[employer] [facility] 10-03-2023 11:39-0400 Diastolic Blood Pressure Non-Invasive 66 mm[Hg] CHITO GALINDO-GABRIELA [employer]PORATE FIN[employer]CIAL ANALYST[employer] [facility] 10-03-2023 11:39-0400 Heart rate 80 /min CHITO BAIGY-GABRIELA [employer]PORATE FIN[employer]CIAL ANALYST[employer]ING [employer] [facility] 10-03-2023 11:39-0400 Reason For Taking VItal Signs CHITO FREEDMANLEY [employer]PORATE FIN[employer]CIAL ANALYST[employer]ING [employer] [facility] 10-03-2023 11:39-0400 Respiratory rate 18 /min CHITO MEDLEY-GABRIELA [employer]PORATE FIN[employer]CIAL ANALYST[employer] [facility] 10-03-2023 11:39-0400 Systolic Blood Pressure Non-Invasive 112 mm[Hg] CHITO BAIGY-GABRIELA [employer]PORATE FIN[employer]CIAL ANALYST[employer] [facility] 10-03-2023 08:27-0400 Heart rate 79 /min CHITO GALINDO-GABRIELA [employer]ATE FIN[employer]CIAL ANALYST[employer] [facility] 10-03-2023 06:05-0400 Body temperature 97.88 [degF] CHITO GALINDO-GABRIELA [employer]PORATE FIN[employer]CIAL ANALYST[employer]ING [employer] [facility] 10-03-2023 06:05-0400 Diastolic Blood Pressure Non-Invasive 76 mm[Hg] CHITO MEDLEY-GABRIELA [employer]ATE FIN[employer]CIAL ANALYST[employer]ING [employer] [facility] 10-03-2023 06:05-0400 Heart rate 71 /min CHITO MEDLEY-GABRIELA [employer]PORATE FIN[employer]CIAL ANALYST[employer] [facility] 10-03-2023 06:05-0400 Respiratory rate 18 /min CHITO MEDLEY-GABRIELA [employer]PORATE FIN[employer]CIAL ANALYST[employer] [facility] 10-03-2023 06:05-0400 Systolic Blood Pressure Non-Invasive 112 mm[Hg] CHITO MEDLEY-GABRIELA [employer]PORATE FIN[employer]CIAL ANALYST[employer]ING [employer] [facility] 10-02-2023 08:45-0400 Heart rate 76 /min CHITO MEDLEY-GABRIELA [employer]ATE FIN[employer]CIAL A[employer]LYST[employer] [facility] 10-02-2023 03:49-0400 Heart rate 85 /min CHITO MEDLEY-GABRIELA [employer]PORATE FIN[employer]CIAL ANALYST[employer] [facility] 10-02-2023 01:23-0400 Body height 175.3 cm CHITO MEDLEY-GABRIELA [employer]ATE FIN[employer]CIAL ANALYST[employer] [address] [place] [address] 10-02-2023 01:23-0400 Body weight 144.7 kg CHITO AMBROSEGABRIELA [employer]PORATE FIN[employer]CIAL ANALYST[employer] [address] [place] [address] 10-02-2023 01:23-0400 Body weight 47.09 kg/m2 CHITO MEDLEY-GABRIELA [employer]ATE FIN[employer]CIAL ANALYST[employer] [address] [place] [address] 10-02-2023 01:17-0400 Heart rate 71 /min CHITO MEDLEY-GABRIELA [employer]ATE FIN[employer]CIAL A[employer] [address] [place] [address] 10-02-2023 00:30-0400 Heart rate 82 /min CHITO BUENROSTRO [employer]PORATE FIN[employer]CIAL ANALYST[employer] [facility] 07-17-2023 15:35-0400 Body temperature 98.2 [degF] Dr. Radha Khan Work Phone: [facility] 07-17-2023 15:35-0400 Body weight 146.[address] Radha Khan Work Phone: [facility] 07-17-2023 15:35-0400 Diastolic blood pressure 67 mm[Hg] Dr. Radha Khan Work Phone: [facility] 07-17-2023 15:35-0400 Heart rate 80 /min Dr. Radha Khan Work Phone: [facility] 07-17-2023 15:35-0400 Respiratory rate 16 /min Dr. Radha Khan Work Phone: [facility] 07-17-2023 15:35-0400 SaO2% (BldA) [Mass fraction] 95 % Dr. Radha Khan Work Phone: [facility] 07-17-2023 15:35-0400 Systolic blood pressure 121 mm[Hg] Dr. Radha Khan Work Phone: [facility] 07-03-2023 11:02-0400 Body height 175.[address] Radha Khan Work Phone: [facility] 07-03-2023 11:02-0400 Body mass index (BMI) [Ratio] 48.1 kg/m2 Dr. Radha Khan Work Phone: [facility] 07-03-2023 11:02-0400 Body weight 147.[address] Radha Khan Work Phone: [facility] 07-03-2023 11:02-0400 Respiratory rate 16 /min Dr. Radha Khan Work Phone: [facility] 05-21-2023 14:43-0500 Body height 175.[address] Radha Khan Work Phone: [facility] 05-21-2023 14:43-0500 Body mass index (BMI) [Ratio] 48.1 kg/m2 Dr. Radha Khan Work Phone: [facility] 05-21-2023 14:43-0500 Body temperature 97.6 [degF] Dr. Radha Khan Work Phone: [facility] 05-21-2023 14:43-0500 Body weight 147.[address] Radha Khan Work Phone: [facility] 05-21-2023 14:43-0500 Diastolic blood pressure 81 mm[Hg] Dr. Radha Khan Work Phone: [facility] 05-21-2023 14:43-0500 Heart rate 83 /min Dr. Radha Khan Work Phone: [facility] 05-21-2023 14:43-0500 Respiratory rate 18 /min Dr. Radha Khan Work Phone: [facility] 05-21-2023 14:43-0500 SaO2% (BldA) [Mass fraction] 97 % Dr. Radha Khan Work Phone: [facility] 05-21-2023 14:43-0500 Systolic blood pressure 121 mm[Hg] Dr. Radha Khan Work Phone: [facility] 05-20-2023 13:21-0500 Body mass index (BMI) [Ratio] 48.3 kg/m2 Dr. Radha Khan Work Phone: [facility] 05-20-2023 13:21-0500 Body temperature 98.6 [degF] Dr. Radha Khan Work Phone: [facility] 05-20-2023 13:21-0500 Body weight 148.[address] Radha Khan Work Phone: [facility] 05-20-2023 13:21-0500 Diastolic blood pressure 68 mm[Hg] Dr. Radha Khan Work Phone: [facility] 05-20-2023 13:21-0500 Heart rate 76 /min Dr. Radha Khan Work Phone: [facility] 05-20-2023 13:21-0500 Respiratory rate 16 /min Dr. Radha Khan Work Phone: [facility] 05-20-2023 13:21-0500 SaO2% (BldA) [Mass fraction] 98 % Dr. Radha Khan Work Phone: [facility] 05-20-2023 13:21-0500 Systolic blood pressure 102 mm[Hg] Dr. Radha Khan Work Phone: [facility] 03-12-2023 12:03-0500 Diastolic blood pressure 72 mm[Hg] Dr. Radha Khan Work Phone: [facility] 03-12-2023 12:03-0500 Heart rate 101 /min Dr. Radha Khan Work Phone: [facility] 03-12-2023 12:03-0500 Systolic blood pressure 96 mm[Hg] Dr. Radha Khan Work Phone: [facility] 03-12-2023 08:59-0500 Body height 175.[address] Radha Khan Work Phone: [facility] 03-12-2023 08:59-0500 Body mass index (BMI) [Ratio] 47.1 kg/m2 Dr. Radha Khan Work Phone: [facility] 03-12-2023 08:59-0500 Body temperature 97.7 [degF] Dr. Radha Khan Work Phone: [facility] 03-12-2023 08:59-0500 Body weight 144.[address] Radha Khan Work Phone: [facility] 03-12-2023 08:59-0500 Respiratory rate 17 /min Dr. Radha Khan Work Phone: [facility] 03-12-2023 08:59-0500 SaO2% (BldA) [Mass fraction] 97 % Dr. Radha Khan Work Phone: [facility] 02-27-2023 10:43-0500 Body height 175.[address] Radha Khan Work Phone: [facility] 02-27-2023 10:43-0500 Body mass index (BMI) [Ratio] 46.9 kg/m2 Dr. Radha Khan Work Phone: [facility] 02-27-2023 10:43-0500 Body weight 144.[address] Radha Khan Work Phone: [facility] 02-27-2023 10:43-0500 Diastolic blood pressure 71 mm[Hg] Dr. Radha Khan Work Phone: [facility] 02-27-2023 10:43-0500 Heart rate 73 /min Dr. Radha Khan Work Phone: [facility] 02-27-2023 10:43-0500 Respiratory rate 20 /min Dr. Radha Khan Work Phone: [facility] 02-27-2023 10:43-0500 SaO2% (BldA) [Mass fraction] 100 % Dr. Radha Khan Work Phone: [facility] 02-27-2023 10:43-0500 Systolic blood pressure 103 mm[Hg] Dr. Radha Khan Work Phone: [facility] 02-18-2023 11:05-0500 Body temperature 97.8 [degF] Dr. Radha Khan Work Phone: [facility] 02-18-2023 11:05-0500 Diastolic blood pressure 63 mm[Hg] Dr. Radha Khan Work Phone: [facility] 02-18-2023 11:05-0500 Heart rate 69 /min Dr. Radha Khan Work Phone: [facility] 02-18-2023 11:05-0500 Respiratory rate 16 /min Dr. Radha Khan Work Phone: [facility] 02-18-2023 11:05-0500 SaO2% (BldA) [Mass fraction] 96 % Dr. Radha Khan Work Phone: [facility] 02-18-2023 11:05-0500 Systolic blood pressure 132 mm[Hg] Dr. Radha Khan Work Phone: [facility] 02-18-2023 09:54-0500 Body height 175.[address] Radha Khan Work Phone: [facility] 02-18-2023 09:54-0500 Body mass index (BMI) [Ratio] 47.5 kg/m2 Dr. Radha Khan Work Phone: [facility] 02-18-2023 09:54-0500 Body weight [address] Radha Khan Work Phone: [facility] 02-04-2023 13:15-0500 Body mass index (BMI) [Ratio] 48.2 kg/m2 Dr. Radha Khan Work Phone: [facility] 02-04-2023 13:15-0500 Body temperature 98 [degF] Dr. Radha Khan Work Phone: [facility] 02-04-2023 13:15-0500 Body weight 148.[address] Radha Khan Work Phone: [facility] 02-04-2023 13:15-0500 Diastolic blood pressure 62 mm[Hg] Dr. Radha Khan Work Phone: [facility] 02-04-2023 13:15-0500 Heart rate 80 /min Dr. Radha Khan Work Phone: [facility] 02-04-2023 13:15-0500 Respiratory rate 18 /min Dr. Radha Khan Work Phone: [facility] 02-04-2023 13:15-0500 SaO2% (BldA) [Mass fraction] 98 % Dr. Radha Khan Work Phone: [facility] 02-04-2023 13:15-0500 Systolic blood pressure 100 mm[Hg] Dr. Radha Khan Work Phone: 4(779)493-801605 [place] [address] 01-01-2023 14:11-0400 Body height 175.[address] Radha Khan Work Phone: 4(084)946-684905 [place] [address] 01-01-2023 14:11-0400 Body mass index (BMI) [Ratio] 47.8 kg/m2 Dr. Radha Khan Work Phone: 6(063)271-269023 [address] 01-01-2023 14:11-0400 Body temperature 97.3 [degF] Dr. Radha Khan Work Phone: 3(872)670-304405 [place] [address] 01-01-2023 14:11-0400 Body weight 146.[address] Radha Khan Work Phone: 8(503)010-619005 [place] [address] 01-01-2023 14:11-0400 Diastolic blood pressure 67 mm[Hg] Dr. Radha Khan Work Phone: 7(940)153-843423 [address] 01-01-2023 14:11-0400 Heart rate 75 /min Dr. Radha Khan Work Phone: 8(072)120-391605 [place] [address] 01-01-2023 14:11-0400 Respiratory rate 17 /min Dr. Radha Khan Work Phone: [facility] 01-01-2023 14:11-0400 SaO2% (BldA) [Mass fraction] 98 % Dr. Radha Khan Work Phone: [facility] 01-01-2023 14:11-0400 Systolic blood pressure 106 mm[Hg] Dr. Radha Khan Work Phone: [facility] 12-10-2022 11:33-0400 Body mass index (BMI) [Ratio] 47.8 kg/m2 Dr. Radha Khan Work Phone: [facility] 12-10-2022 11:33-0400 Body temperature 98.3 [degF] Dr. Radha Khan Work Phone: [facility] 12-10-2022 11:33-0400 Body weight 146.[address] Radha Khan Work Phone: [facility] 12-10-2022 11:33-0400 Diastolic blood pressure 70 mm[Hg] Dr. Radha Khan Work Phone: [facility] 12-10-2022 11:33-0400 Heart rate 72 /min Dr. Radha Khan Work Phone: [facility] 12-10-2022 11:33-0400 Respiratory rate 16 /min Dr. Radha Khan Work Phone: [facility] 12-10-2022 11:33-0400 SaO2% (BldA) [Mass fraction] 96 % Dr. Radha Khan Work Phone: [facility] 12-10-2022 11:33-0400 Systolic blood pressure 118 mm[Hg] Dr. Radha Khan Work Phone: [facility] 10-08-2022 14:22-0400 Diastolic blood pressure 72 mm[Hg] Dr. Radha Khan Work Phone: [facility] 10-08-2022 14:22-0400 Systolic blood pressure 107 mm[Hg] Dr. Radha Khan Work Phone: [facility] 09-03-2022 13:57-0400 Body height 175.[address] Radha Khan Work Phone: [facility] 09-03-2022 13:57-0400 Body mass index (BMI) [Ratio] 47 kg/m2 Dr. Radha Khan Work Phone: [facility] 09-03-2022 13:57-0400 Body temperature 98.6 [degF] Dr. Radha Khan Work Phone: [facility] 09-03-2022 13:57-0400 Body weight 144.[address] Radha Khan Work Phone: [facility] 09-03-2022 13:57-0400 Diastolic blood pressure 56 mm[Hg] Dr. Radha hKan Work Phone: [facility] 09-03-2022 13:57-0400 Heart rate 62 /min Dr. Radha Khan Work Phone: [facility] 09-03-2022 13:57-0400 Respiratory rate 16 /min Dr. Radha Khan Work Phone: [facility] 09-03-2022 13:57-0400 SaO2% (BldA) [Mass fraction] 94 % Dr. Radha Khan Work Phone: [facility] 09-03-2022 13:57-0400 Systolic blood pressure 90 mm[Hg] Dr. Radha Khan Work Phone: [facility] 08-03-2022 15:30-0400 Body mass index (BMI) [Ratio] 45.4 kg/m2 Dr. Radha Khan Work Phone: [facility] 08-03-2022 15:20-0400 Body temperature 97.9 [degF] Dr. Radha Khan Work Phone: [facility] 08-03-2022 15:20-0400 Diastolic blood pressure 78 mm[Hg] Dr. Radha Khan Work Phone: [facility] 08-03-2022 15:20-0400 Heart rate 107 /min Dr. Radha Khan Work Phone: [facility] 08-03-2022 15:20-0400 Respiratory rate 16 /min Dr. Radha Khan Work Phone: [facility] 08-03-2022 15:20-0400 SaO2% (BldA) [Mass fraction] 97 % Dr. Radha Khan Work Phone: [facility] 08-03-2022 15:20-0400 Systolic blood pressure 144 mm[Hg] Dr. Radha Khan Work Phone: [facility] 08-03-2022 05:22-0400 Body mass index (BMI) [Ratio] 45.4 kg/m2 Dr. Radha Khan Work Phone: [facility] 08-03-2022 05:22-0400 Body weight 139.[address] Radha Khan Work Phone: [facility] 08-02-2022 10:53-0400 Body height 175.[address] Radha Khan Work Phone: [facility] 06-18-2022 14:14-0400 Body height 175.[address] Radha Khan Work Phone: [facility] 06-18-2022 14:14-0400 Body mass index (BMI) [Ratio] 45.8 kg/m2 Dr. Radha Khan Work Phone: [facility] 06-18-2022 14:14-0400 Body temperature 96.7 [degF] Dr. Radha Khan Work Phone: [facility] 06-18-2022 14:14-0400 Body weight 140.[address] Radha Khan Work Phone: [facility] 06-18-2022 14:14-0400 Diastolic blood pressure 70 mm[Hg] Dr. Radha Khan Work Phone: [facility] 06-18-2022 14:14-0400 Heart rate 81 /min Dr. Radha Khan Work Phone: [facility] 06-18-2022 14:14-0400 Respiratory rate 18 /min Dr. Radha Khan Work Phone: [facility] 06-18-2022 14:14-0400 SaO2% (BldA) [Mass fraction] 98 % Dr. Radha Khan Work Phone: [facility] 06-18-2022 14:14-0400 Systolic blood pressure 110 mm[Hg] Dr. Radha Khan Work Phone: [facility] 06-12-2022 07:50-0400 Body mass index (BMI) [Ratio] 45.8 kg/m2 Dr. Radha Khan Work Phone: [facility] 06-12-2022 07:50-0400 Body temperature 97.3 [degF] Dr. Radha Khan Work Phone: [facility] 06-12-2022 07:50-0400 Body weight 140.[address] Radha Khan Work Phone: [facility] 06-12-2022 07:50-0400 Diastolic blood pressure 72 mm[Hg] Dr. Radha Khan Work Phone: [facility] 06-12-2022 07:50-0400 Heart rate 83 /min Dr. Radha Khan Work Phone: [facility] 06-12-2022 07:50-0400 Respiratory rate 18 /min Dr. Radha Khan Work Phone: [facility] 06-12-2022 07:50-0400 SaO2% (BldA) [Mass fraction] 97 % Dr. Radha Khan Work Phone: [facility] 06-12-2022 07:50-0400 Systolic blood pressure 115 mm[Hg] Dr. Radha Khan Work Phone: [facility] 05-21-2022 15:09-0500 Diastolic blood pressure 80 mm[Hg] Dr. Radha Khan Work Phone: [facility] 05-21-2022 15:09-0500 Systolic blood pressure 130 mm[Hg] Dr. Radha Khan Work Phone: [facility] 05-21-2022 15:09-0500 Body mass index (BMI) [Ratio] 45.6 kg/m2 Dr. Radha Khan Work Phone: [facility] 05-21-2022 15:09-0500 Body weight 140.[address] Radha Khan Work Phone: [facility] 05-21-2022 15:09-0500 Heart rate 80 /min Dr. Radha Khan Work Phone: [facility] 05-21-2022 15:09-0500 Respiratory rate 18 /min Dr. Radha Khan Work Phone: [facility] 05-21-2022 15:09-0500 SaO2% (BldA) [Mass fraction] 94 % Dr. Radha Khan Work Phone: 3(400)512-607123 [address] 05-09-2022 08:42-0500 Body height 175.[address] Radha Khan Work Phone: 5(368)130-597705 [place] [address] 05-09-2022 08:42-0500 Body weight 136.[address] Radha Khan Work Phone: 9(482)213-572405 [place] [address] 05-08-2022 08:18-0500 Body mass index (BMI) [Ratio] 44.6 kg/m2 Dr. Radha Khan Work Phone: 2(749)471-350305 [place] [address] 05-03-2022 08:34-0500 Body mass index (BMI) [Ratio] 44.6 kg/m2 Dr. Radha Khan Work Phone: 7(876)070-326505 [place] [address] 05-03-2022 08:34-0500 Body weight 136.[address] Radha Khan Work Phone: [facility] 05-03-2022 08:34-0500 Diastolic blood pressure 84 mm[Hg] Dr. Radha Khan Work Phone: 5(187)748-122905 [place] [address] 05-03-2022 08:34-0500 Heart rate 92 /min Dr. Radha Khan Work Phone: [facility] 05-03-2022 08:34-0500 Respiratory rate 20 /min Dr. Radha Khan Work Phone: 8(648)579-516105 [place] [address] 05-03-2022 08:34-0500 SaO2% (BldA) [Mass fraction] 95 % Dr. Radha Khan Work Phone: [facility] 05-03-2022 08:34-0500 Systolic blood pressure 143 mm[Hg] Dr. Radha Khan Work Phone: [facility] 03-12-2022 10:43-0500 Body height 175.[address] Radha Khan Work Phone: [facility] 03-12-2022 10:43-0500 Body mass index (BMI) [Ratio] 45.6 kg/m2 Dr. Radha Khan Work Phone: 4(399)033-919405 [place] [address] 03-12-2022 10:43-0500 Body temperature 97.2 [degF] Dr. Radha Khan Work Phone: 7(124)117-543605 [place] [address] 03-12-2022 10:43-0500 Body weight 140.[address] Radha Khan Work Phone: [facility] 03-12-2022 10:43-0500 Diastolic blood pressure 59 mm[Hg] Dr. Radha Khan Work Phone: [facility] 03-12-2022 10:43-0500 Heart rate 78 /min Dr. Radha Khan Work Phone: [facility] 03-12-2022 10:43-0500 Respiratory rate 18 /min Dr. Radha Khan Work Phone: [facility] 03-12-2022 10:43-0500 SaO2% (BldA) [Mass fraction] 92 % Dr. Radha Khan Work Phone: [facility] 03-12-2022 10:43-0500 Systolic blood pressure 92 mm[Hg] Dr. Radha Khan Work Phone: [facility] 02-19-2022 08:31-0500 Body height 175.[address] Radha Khan Work Phone: [facility] Work Phone: 02-19-2022 08:31-0500 Body mass index (BMI) [Ratio] 45.8 kg/m2 Dr. Radha Khan Work Phone: [facility] 02-19-2022 08:31-0500 Body weight 140.[address] Radha Khan Work Phone: [facility] 02-19-2022 08:31-0500 Diastolic blood pressure 64 mm[Hg] Dr. Radha Khan Work Phone: [facility] 02-19-2022 08:31-0500 Heart rate 68 /min Dr. Radha Khan Work Phone: [facility] 02-19-2022 08:31-0500 Respiratory rate 18 /min Dr. Radha Khan Work Phone: [facility] 02-19-2022 08:31-0500 Systolic blood pressure 125 mm[Hg] Dr. Radha Khan Work Phone: [facility] 02-16-2022 12:47-0500 Body weight 136.[address] Radha Khan Work Phone: [facility] 02-16-2022 12:47-0500 Heart rate 77 /min Dr. Radha Khan Work Phone: [facility] 02-16-2022 12:47-0500 Inhaled oxygen flow rate 2 L/min Dr. Radha Khan Work Phone: [facility] 02-16-2022 12:47-0500 SaO2% (BldA) [Mass fraction] 98 % Dr. Radha Khan Work Phone: [facility] 02-12-2022 08:54-0500 Body mass index (BMI) [Ratio] 44.6 kg/m2 Dr. Radha Khan Work Phone: [facility] 02-12-2022 08:54-0500 Body temperature 98.2 [degF] Dr. Radha Khan Work Phone: [facility] 02-12-2022 08:54-0500 Body weight 137.[address] Radha Khan Work Phone: [facility] 02-12-2022 08:54-0500 Diastolic blood pressure 78 mm[Hg] Dr. Radha Khan Work Phone: [facility] 02-12-2022 08:54-0500 Heart rate 69 /min Dr. Radha Khan Work Phone: [facility] 02-12-2022 08:54-0500 Respiratory rate 18 /min Dr. Radha Khan Work Phone: [facility] 02-12-2022 08:54-0500 SaO2% (BldA) [Mass fraction] 98 % Dr. Radha Khan Work Phone: [facility] 02-12-2022 08:54-0500 Systolic blood pressure 122 mm[Hg] Dr. Radha Khan Work Phone: [facility] 01-15-2022 10:51-0400 Body mass index (BMI) [Ratio] 45.5 kg/m2 Dr. Radha Khan Work Phone: [facility] 01-15-2022 10:51-0400 Body temperature 97 [degF] Dr. Radha Khan Work Phone: [facility] 01-15-2022 10:51-0400 Body weight 139.[address] Radha Khan Work Phone: [facility] 01-15-2022 10:51-0400 Diastolic blood pressure 76 mm[Hg] Dr. Radha Khan Work Phone: [facility] 01-15-2022 10:51-0400 Heart rate 76 /min Dr. Radha Khan Work Phone: [facility] 01-15-2022 10:51-0400 Respiratory rate 18 /min Dr. Radha Khan Work Phone: [facility] 01-15-2022 10:51-0400 SaO2% (BldA) [Mass fraction] 93 % Dr. Radha Khan Work Phone: [facility] 01-15-2022 10:51-0400 Systolic blood pressure 124 mm[Hg] Dr. Radha Khan Work Phone: [facility] 11-13-2021 15:28-0400 Body mass index (BMI) [Ratio] 44.6 kg/m2 Dr. Radha Khan Work Phone: [facility] Work Phone: 11-13-2021 15:28-0400 Body weight 136.[address] Radha Khan Work Phone: [facility] Work Phone: 11-13-2021 15:28-0400 Diastolic blood pressure 64 mm[Hg] Dr. Radha Khan Work Phone: [facility] Work Phone: 11-13-2021 15:28-0400 Heart rate 79 /min Dr. Radha Khan Work Phone: [facility] Work Phone: 11-13-2021 15:28-0400 Respiratory rate 18 /min Dr. Radha Khan Work Phone: [facility] Work Phone: 11-13-2021 15:28-0400 Systolic blood pressure 110 mm[Hg] Dr. Radha Khan Work Phone: [facility] Work Phone: 09-07-2021 14:21-0400 Body height 175.[address] Radha Khan Work Phone: [facility] Work Phone: 09-07-2021 14:21-0400 Body mass index (BMI) [Ratio] 45 kg/m2 Dr. Radha Khan Work Phone: [facility] Work Phone: 09-07-2021 14:21-0400 Body weight 138.[address] Radha Khan Work Phone: [facility] Work Phone: 09-07-2021 14:21-0400 Diastolic blood pressure 79 mm[Hg] Dr. Radha Khan Work Phone: [facility] Work Phone: 09-07-2021 14:21-0400 Heart rate 79 /min Dr. Radha Khan Work Phone: [facility] Work Phone: 09-07-2021 14:21-0400 Respiratory rate 18 /min Dr. Radha Khan Work Phone: [facility] Work Phone: 09-07-2021 14:21-0400 SaO2% (BldA) [Mass fraction] 96 % Dr. Radha Khan Work Phone: [facility] Work Phone: 09-07-2021 14:21-0400 Systolic blood pressure 153 mm[Hg] Dr. Radha Khan Work Phone: [facility] Work Phone: 09-04-2021 10:10-0400 Diastolic blood pressure 82 mm[Hg] Dr. Radha Khan Work Phone: [facility] Work Phone: 09-04-2021 10:10-0400 Systolic blood pressure 172 mm[Hg] Dr. Radha Khan Work Phone: [facility] Work Phone: 09-04-2021 09:10-0400 Heart rate 78 /min Dr. Radha Khan Work Phone: [facility] Work Phone: 09-04-2021 09:10-0400 SaO2% (BldA) [Mass fraction] 95 % Dr. Radha Khan Work Phone: [facility] Work Phone: 09-04-2021 08:44-0400 Respiratory rate 16 /min Dr. Radha Khan Work Phone: [facility] Work Phone: 09-04-2021 06:22-0400 Body height 175.[address] Radha Khan Work Phone: [facility] Work Phone: 09-04-2021 06:22-0400 Body mass index (BMI) [Ratio] 45.1 kg/m2 Dr. Radha Khan Work Phone: [facility] Work Phone: 09-04-2021 06:22-0400 Body temperature 97.4 [degF] Dr. Radha Khan Work Phone: [facility] Work Phone: 09-04-2021 06:22-0400 Body weight 138.[address] Radha Khan Work Phone: [facility] Work Phone: 08-10-2021 13:42-0400 Body mass index (BMI) [Ratio] 44.5 kg/m2 Dr. Radha Khan Work Phone: [facility] Work Phone: 08-10-2021 13:42-0400 Body temperature 95.7 [degF] Dr. Radha Khan Work Phone: [facility] Work Phone: 08-10-2021 13:42-0400 Body weight 136.[address] Radha Khan Work Phone: [facility] Work Phone: 08-10-2021 13:42-0400 Diastolic blood pressure 80 mm[Hg] Dr. Radha Khan Work Phone: [facility] Work Phone: 08-10-2021 13:42-0400 Heart rate 84 /min Dr. Radha Khan Work Phone: [facility] Work Phone: 08-10-2021 13:42-0400 Respiratory rate 18 /min Dr. Radha Khan Work Phone: [facility] Work Phone: 08-10-2021 13:42-0400 SaO2% (BldA) [Mass fraction] 96 % Dr. Radha Khan Work Phone: [facility] Work Phone: 08-10-2021 13:42-0400 Systolic blood pressure 140 mm[Hg] Dr. Radha Khan Work Phone: [facility] Work Phone: 08-10-2021 13:42-0400 Body height 175.[address] Radha Khan Work Phone: [facility] Work Phone: 08-10-2021 13:42-0400 Body mass index (BMI) [Ratio] 44.5 kg/m2 Dr. Radha Khan Work Phone: [facility] Work Phone: 08-10-2021 13:42-0400 Body temperature 95.7 [degF] Dr. Radha Khan Work Phone: [facility] Work Phone: 08-10-2021 13:42-0400 Body weight 136.[address] Radha Khan Work Phone: [facility] Work Phone: 08-10-2021 13:42-0400 Diastolic blood pressure 80 mm[Hg] Dr. Radha Khan Work Phone: [facility] Work Phone: 08-10-2021 13:42-0400 Heart rate 84 /min Dr. Radha Khan Work Phone: [facility] Work Phone: 08-10-2021 13:42-0400 Respiratory rate 18 /min Dr. Radha Khan Work Phone: [facility] Work Phone: 08-10-2021 13:42-0400 SaO2% (BldA) [Mass fraction] 96 % Dr. Radha Khan Work Phone: [facility] Work Phone: 08-10-2021 13:42-0400 Systolic blood pressure 140 mm[Hg] Dr. Radha Khan Work Phone: [facility] Work Phone: 07-16-2021 16:25-0400 Body temperature 98.7 [degF] Dr. Radha Khan Work Phone: [facility] Work Phone: 07-16-2021 16:25-0400 Diastolic blood pressure 75 mm[Hg] Dr. Radha Khan Work Phone: [facility] Work Phone: 07-16-2021 16:25-0400 Heart rate 73 /min Dr. Radha Khan Work Phone: [facility] Work Phone: 07-16-2021 16:25-0400 Respiratory rate 18 /min Dr. Radha Khan Work Phone: [facility] Work Phone: 07-16-2021 16:25-0400 SaO2% (BldA) [Mass fraction] 99 % Dr. Radha Khan Work Phone: [facility] Work Phone: 07-16-2021 16:25-0400 Systolic blood pressure 155 mm[Hg] Dr. Radha Khan Work Phone: [facility] Work Phone: 07-16-2021 14:17-0400 Body height 175.[address] Radha Khan Work Phone: [facility] Work Phone: 07-16-2021 14:17-0400 Body mass index (BMI) [Ratio] 44.9 kg/m2 Dr. Radha Khan Work Phone: [facility] Work Phone: 07-16-2021 14:17-0400 Body weight [address] Radha Khan Work Phone: [facility] Work Phone: 07-13-2021 10:31-0400 Body mass index (BMI) [Ratio] 44.4 kg/m2 Dr. Radha Khan Work Phone: [facility] Work Phone: 07-13-2021 10:31-0400 Body temperature 98.2 [degF] Dr. Radha Khan Work Phone: [facility] Work Phone: 07-13-2021 10:31-0400 Body weight 136.[address] Radha Khan Work Phone: [facility] Work Phone: 07-13-2021 10:31-0400 Diastolic blood pressure 72 mm[Hg] Dr. Radha Khan Work Phone: [facility] Work Phone: 07-13-2021 10:31-0400 Heart rate 73 /min Dr. Radha Khan Work Phone: [facility] Work Phone: 07-13-2021 10:31-0400 Respiratory rate 17 /min Dr. Radha Khan Work Phone: [facility] Work Phone: 07-13-2021 10:31-0400 SaO2% (BldA) [Mass fraction] 99 % Dr. Radha Khan Work Phone: [facility] Work Phone: 07-13-2021 10:31-0400 Systolic blood pressure 115 mm[Hg] Dr. Radha Khan Work Phone: [facility] Work Phone: 07-13-2021 10:31-0400 Body mass index (BMI) [Ratio] 44.4 kg/m2 Dr. Radha Khan Work Phone: [facility] Work Phone: 07-13-2021 10:31-0400 Body temperature 98.2 [degF] Dr. Radha Khan Work Phone: [facility] Work Phone: 07-13-2021 10:31-0400 Body weight 136.[address] Radha Khan Work Phone: [facility] Work Phone: 07-13-2021 10:31-0400 Diastolic blood pressure 72 mm[Hg] Dr. Radha Khan Work Phone: [facility] Work Phone: 07-13-2021 10:31-0400 Heart rate 73 /min Dr. Radha Khan Work Phone: [facility] Work Phone: 07-13-2021 10:31-0400 Respiratory rate 17 /min Dr. Radha Khan Work Phone: [facility] Work Phone: 07-13-2021 10:31-0400 SaO2% (BldA) [Mass fraction] 99 % Dr. Radha Khan Work Phone: [facility] Work Phone: 07-13-2021 10:31-0400 Systolic blood pressure 115 mm[Hg] Dr. Radha Khan Work Phone: [facility] Work Phone: 07-12-2021 12:50-0400 Body weight 136.[address] Radha Khan Work Phone: [facility] Work Phone: 07-12-2021 12:50-0400 Diastolic blood pressure 83 mm[Hg] Dr. Radha Khan Work Phone: [facility] Work Phone: 07-12-2021 12:50-0400 Heart rate 72 /min Dr. Radha Khan Work Phone: [facility] Work Phone: 07-12-2021 12:50-0400 Respiratory rate 18 /min Dr. Radha Khan Work Phone: [facility] Work Phone: 07-12-2021 12:50-0400 SaO2% (BldA) [Mass fraction] 100 % Dr. Radha Khan Work Phone: [facility] Work Phone: 07-12-2021 12:50-0400 Systolic blood pressure 148 mm[Hg] Dr. Radha Khan Work Phone: [facility] Work Phone: 07-12-2021 12:50-0400 Body weight 136.[address] Radha Khan Work Phone: [facility] Work Phone: 07-12-2021 12:50-0400 Diastolic blood pressure 83 mm[Hg] Dr. Radha Khan Work Phone: [facility] Work Phone: 07-12-2021 12:50-0400 Heart rate 72 /min Dr. Radha Khan Work Phone: [facility] Work Phone: 07-12-2021 12:50-0400 Respiratory rate 18 /min Dr. Radha Khan Work Phone: [facility] Work Phone: 07-12-2021 12:50-0400 SaO2% (BldA) [Mass fraction] 100 % Dr. Radha Khan Work Phone: [facility] Work Phone: 07-12-2021 12:50-0400 Systolic blood pressure 148 mm[Hg] Dr. Radha Khan Work Phone: [facility] Work Phone: 06-29-2021 13:09-0400 Body mass index (BMI) [Ratio] 43.6 kg/m2 Dr. Radha Khan Work Phone: [facility] Work Phone: 06-29-2021 13:09-0400 Body temperature 96.9 [degF] Dr. Radha Khan Work Phone: [facility] Work Phone: 06-29-2021 13:09-0400 Body weight 133.[address] Radha Khan Work Phone: [facility] Work Phone: 06-29-2021 13:09-0400 Diastolic blood pressure 76 mm[Hg] Dr. Radha Kahn Work Phone: [facility] Work Phone: 06-29-2021 13:09-0400 Heart rate 98 /min Dr. Radha Khan Work Phone: [facility] Work Phone: 06-29-2021 13:09-0400 Respiratory rate 18 /min Dr. Radha Khan Work Phone: [facility] Work Phone: 06-29-2021 13:09-0400 SaO2% (BldA) [Mass fraction] 98 % Dr. Radha Khan Work Phone: [facility] Work Phone: 06-29-2021 13:09-0400 Systolic blood pressure 110 mm[Hg] Dr. Radha Khan Work Phone: [facility] Work Phone: 06-29-2021 13:09-0400 Body mass index (BMI) [Ratio] 43.6 kg/m2 Dr. Radha Khan Work Phone: [facility] Work Phone: 06-29-2021 13:09-0400 Body temperature 96.9 [degF] Dr. Radha Khan Work Phone: [facility] Work Phone: 06-29-2021 13:09-0400 Body weight 133.[address] Radha Khan Work Phone: [facility] Work Phone: 06-29-2021 13:09-0400 Diastolic blood pressure 76 mm[Hg] Dr. Radha Khan Work Phone: [facility] Work Phone: 06-29-2021 13:09-0400 Heart rate 98 /min Dr. Radha Khan Work Phone: [facility] Work Phone: 06-29-2021 13:09-0400 Respiratory rate 18 /min Dr. Radha Khan Work Phone: [facility] Work Phone: 06-29-2021 13:09-0400 SaO2% (BldA) [Mass fraction] 98 % Dr. Radha Khan Work Phone: [facility] Work Phone: 06-29-2021 13:09-0400 Systolic blood pressure 110 mm[Hg] Dr. Radha Khan Work Phone: [facility] Work Phone: 06-20-2021 12:08-0400 Heart rate 90 /min Dr. Radha Khan Work Phone: [facility] Work Phone: 06-20-2021 10:32-0400 SaO2% (BldA) [Mass fraction] 95 % Dr. Radha Khan Work Phone: [facility] Work Phone: 06-20-2021 09:00-0400 Body temperature 97.8 [degF] Dr. Radha Khan Work Phone: [facility] Work Phone: 06-20-2021 09:00-0400 Diastolic blood pressure 82 mm[Hg] Dr. Radha Khan Work Phone: [facility] Work Phone: 06-20-2021 09:00-0400 Respiratory rate 18 /min Dr. Radha Khan Work Phone: [facility] Work Phone: 06-20-2021 09:00-0400 Systolic blood pressure 154 mm[Hg] Dr. Radha Khan Work Phone: [facility] Work Phone: 06-20-2021 06:00-0400 Body weight [address] Radha Khan Work Phone: [facility] Work Phone: 06-19-2021 10:46-0400 Body mass index (BMI) [Ratio] 44.3 kg/m2 Dr. Radha Khan Work Phone: [facility] Work Phone: 06-15-2021 14:08-0400 Body weight 139.[address] Radha Khan Work Phone: [facility] Work Phone: 06-15-2021 14:08-0400 Heart rate 84 /min Dr. Radha Khan Work Phone: [facility] Work Phone: 06-15-2021 14:08-0400 SaO2% (BldA) [Mass fraction] 97 % Dr. Radha Khan Work Phone: [facility] Work Phone: 06-01-2021 13:31-0500 Body mass index (BMI) [Ratio] 43.9 kg/m2 Dr. Radha Khan Work Phone: [facility] Work Phone: 06-01-2021 13:31-0500 Body temperature 96.9 [degF] Dr. Radha Khan Work Phone: [facility] Work Phone: 06-01-2021 13:31-0500 Body weight 134.[address] Radha Khan Work Phone: [facility] Work Phone: 06-01-2021 13:31-0500 Diastolic blood pressure 70 mm[Hg] Dr. Radha Khan Work Phone: [facility] Work Phone: 06-01-2021 13:31-0500 Heart rate 78 /min Dr. Radha Khan Work Phone: [facility] Work Phone: 06-01-2021 13:31-0500 Respiratory rate 18 /min Dr. Radha Khan Work Phone: [facility] Work Phone: 06-01-2021 13:31-0500 SaO2% (BldA) [Mass fraction] 100 % Dr. Radha Khan Work Phone: [facility] Work Phone: 06-01-2021 13:31-0500 Systolic blood pressure 110 mm[Hg] Dr. Radha Khan Work Phone: [facility] Work Phone: 06-01-2021 12:31-0500 Body mass index (BMI) [Ratio] 43.9 kg/m2 Dr. Radha Khan Work Phone: [facility] Work Phone: 06-01-2021 12:31-0500 Body temperature 96.9 [degF] Dr. Radha Khan Work Phone: [facility] Work Phone: 06-01-2021 12:31-0500 Body weight 134.[address] Radha Khan Work Phone: [facility] Work Phone: 06-01-2021 12:31-0500 Diastolic blood pressure 70 mm[Hg] Dr. Radha Khan Work Phone: [facility] Work Phone: 06-01-2021 12:31-0500 Heart rate 78 /min Dr. Radha Khan Work Phone: [facility] Work Phone: 06-01-2021 12:31-0500 Respiratory rate 18 /min Dr. Radha Khan Work Phone: [facility] Work Phone: 06-01-2021 12:31-0500 SaO2% (BldA) [Mass fraction] 100 % Dr. Radha Khan Work Phone: [facility] Work Phone: 06-01-2021 12:31-0500 Systolic blood pressure 110 mm[Hg] Dr. Radha Khan Work Phone: [facility] Work Phone: 10-13-2020 15:48-0400 Body mass index (BMI) [Ratio] 45.2 kg/m2 Dr. Radha Khan Work Phone: [facility] Work Phone: 10-13-2020 15:48-0400 Body mass index (BMI) [Ratio] 45.2 kg/m2 Dr. Radha Khan Work Phone: [facility] Work Phone: Encounters Encounter Date Encounter Type Care Provider Facility Start: 01-19-2025 ambulatory Radha Khan Facility: [facility] Start: 01-18-2025 End: 01-18-2025 Office outpatient visit 25 minutes Oziel Culp MD Work Phone: [facility] Comment on above: Bilateral carotid ar christine stenosis (Primary Dx); Transient alteration of awareness Start: 01-18-2025 End: 01-18-2025 [facility] Start: 01-15-2025 End: 01-15-2025 Office outpatient visit 40 minutes Rosalino Padron MD Work Phone: [facility] Comment on above: ILD (interstitial lavonne ng disease) (Multi) (Primary Dx); High risk medication use; Chronic respiratory failure with hypoxia; BMI 40.0-44.9, adult (Multi); Diastolic heart failure, unspecified HF chronicity (Multi); KIANNA (obstructive sleep apnea) Start: 01-15-2025 End: 01-15-2025 Subsequent hospital visit by physician Oni Rousseau Pft Rm 2 [facility] Comment on above: ILD (interstitial lavonne ng disease) (Multi) ILD (interstitial lavonne ng disease) (Multi); Chronic respiratory failure with hypoxia Start: 01-15-2025 End: 01-15-2025 ambulatory ROSALINO PADRON [facility] Start: 01-12-2025 End: 01-12-2025 ambulatory Brandt Winter Facility:[facility] Start: 01-07-2025 ambulatory Brandt Norma Facility:[facility] Start: 12-23-2024 End: 12-24-2024 Juan Diego Davis DO -Emergency Departmen t Work Phone: Start: 12-23-2024 End: 12-24-2024 Emergency department patient visit Dr. Toni Vann MD Work Phone: -Emergency Department Start: 12-17-2024 End: 12-17-[address] Toni Vann MD Work Phone: -Medical Out Start: 12-17-2024 End: 12-17-2024 Dr. Brandt Winter MD -Medical Out Work Phone: Start: 12-17-2024 [facility] Start: 12-17-2024 Dr. Marjorie Hernandez MD -[facility] Work Phone: Start: 12-17-2024 End: 12-29-2024 Dr. Marjorie Hernandez [facility] Work Phone: Start: 12-17-2024 End: 12-29-[address] Toni Vann MD Work Phone: [facility] Start: 12-16-2024 [facility] Start: 12-16-2024 ambulatory [facility] Start: 12-11-2024 End: 12-11-2024 Telephone encounter Kandice Curran RN [facility] Start: 12-10-2024 End: 12-10-2024 Dr. Brandt Winter MD -Medical Out Work Phone: Start: 12-10-2024 End: 12-10-[address] Radha Khan MD Work Phone: -Medical Out Start: 12-09-2024 Dr. Rito olvera MD -[facility] Start: 11-28-2024 Dr. [facility] Work Phone: Start: 11-27-2024 Dr. Ocho[facility] Work Phone: Start: 11-26-2024 ambulatory [facility] Facility:[facility] Start: 11-26-2024 End: 11-28-2024 Evaluation and management of inpatient Dr. Radha Khan MD Work Phone: -Progressive Care Unit Start: 11-26-2024 End: 11-28-2024 Dr. Ochoa Monzon [facility] Work Phone: Start: 11-25-2024 End: 11-25-2024 SAV Rojas -[facility] Work Phone: Start: 11-25-2024 End: 11-25-[address] Radha Khan MD Work Phone: -[facility] Start: 11-19-2024 End: 11-19-[address] Radha Khan MD Work Phone: -Occupational Therapy Start: 11-19-2024 End: 11-19-2024 Dr. Karina Benítez DO -Occupational Therap y Work Phone: Start: 11-13-2024 End: 11-13-2024 Office outpatient visit 40 minutes Rosalino Padron MD Work Phone: [facility] Comment on above: ILD (interstitial lavonne ng disease) (Multi) (Primary Dx); Chronic respiratory failure with hypoxia; BMI 40.0-44.9, adult (Multi); Diastolic heart failure, unspecified HF chronicity Start: 11-13-2024 End: 11-13-2024 ambulatory ROSALINO PADRON [facility] Start: 11-12-2024 End: 11-12-2024 Dr. Toni Vann MD -[facility] Work Phone: Start: 11-12-2024 End: 11-12-[address] Radha Khan MD Work Phone: [facility] Start: 11-09-2024 Dr. Karina Benítez DO -Phy sical Therapy Work Phone: Start: 11-03-2024 End: 11-03-[address] Radha Khan MD Work Phone: -[facility] Start: 11-03-2024 End: 11-03-2024 Dr. Rito Lundberg MD [facility] Work Phone: Start: 11-02-2024 Dr. Karina Benítez DO -Phy sical Therapy Work Phone: Start: 10-31-2024 End: 11-02-2024 Martina Loya APRN - [facility] Work Phone: [facility] Comment on above: Bilateral carotid ar christine stenosis Start: 10-27-2024 End: 10-27-2024 Lydia Segura [facility] Work Phone: Start: 10-27-2024 End: 10-27-[address] Radha Khan MD Work Phone: -[facility] Start: 10-25-2024 End: 10-27-2024 Martina Rodriguezdhiraj CORPORATE FINANCIAL ANALYST - [employer]ING [employer] Work Phone: [facility] Comment on above: Bilateral carotid ar christine stenosis Start: 10-23-2024 Dr. Karina Benítez DO -Spe ech Therapy Work Phone: Start: 10-13-2024 End: 10-13-[address] Radha Khan MD Work Phone: [facility] Start: 10-13-2024 End: 10-13-2024 Dr. Karina Benítez DO -Occupational Therap y Work Phone: Start: 10-12-2024 End: 10-12-2024 Dr. Toni Vann MD -[facility] Work Phone: Start: 10-12-2024 End: 10-13-[address] Radha Khan MD Work Phone: -[facility] Start: 10-05-2024 Dr. Karina Benítez DO -Phy sical Therapy Work Phone: Start: 09-28-2024 Dr. Karina Benítez DO -[facility] Work Phone: Start: 09-28-2024 ambulatory Brandt Winter Facility:[facility] Start: 09-28-2024 Dr. Sarah Parada MD -[facility] Start: 09-27-2024 Dr. Karina Benítez DO -[facility] [...] by physician [facility] Comment on above: Arrived Start: 09-24-2024 End: 09-24-2024 ambulatory [facility] Start: 09-24-2024 End: 09-24-2024 Subsequent hospital visit by physician Dick Nguyen MD Work Phone: [facility] Comment on above: ILD (interstitial lavonne ng disease) (Multi) Start: 09-24-2024 End: 09-24-2024 ambulatory [facility] Start: 09-16-2024 End: 09-16-2024 Patient encounter procedure Jessica Gerardo NP-Sur[facility] -[facility] Work Phone: Start: 09-16-2024 End: 09-16-2024 Jessica SHELDON -[facility] Work Phone: Start: 09-16-2024 End: 09-16-[address] Radha Khan MD Work Phone: [facility] Work Phone: Start: 09-15-2024 End: 09-15-[address] Toni Vann MD -[facility] Work Phone: Start: 09-15-2024 End: 09-15-2024 Dr. Toni Vann MD -[facility] Work Phone: Start: 09-15-2024 End: 09-15-[address] Radha Khan MD Work Phone: [facility] Work Phone: Start: 08-28-2024 End: 08-28-2024 Office outpatient visit 40 minutes Rosalino Padron MD Work Phone: [facility] Comment on above: ILD (interstitial lavonne ng disease) (Multi) (Primary Dx); Chronic respiratory failure with hypoxia; KIANNA (obstructive sleep apnea); BMI 40.0-44.9, adult (Multi); Diastolic heart failure, unspecified HF chronicity Start: 08-28-2024 End: 08-28-2024 ambulatory [facility] Start: 08-18-2024 End: 08-18-2024 Subsequent hospital visit by physician Oni Rousseau Pft Rm 2 [facility] Comment on above: ILD (interstitial lavonne ng disease) (Multi) Start: 08-18-2024 End: 08-18-2024 ambulatory [facility] Start: 08-17-2024 End: 08-17-[address] Toni Vann MD -[facility] Work Phone: Start: 08-17-2024 End: 08-17-2024 Dr. Toni Vann MD -[facility] Work Phone: Start: 08-17-2024 End: 08-17-[address] Radha Khan MD Work Phone: [facility] Work Phone: Start: 08-12-2024 End: 08-12-2024 Patient encounter procedure Sumanth Hanna MD -[facility] Work Phone: Start: 08-12-2024 End: 08-12-2024 Sumanth Hanna MD -[facility] Work Phone: Start: 08-12-2024 End: 08-12-[address] Radha Khan MD Work Phone: [facility] Work Phone: Start: 08-12-2024 End: 08-12-2024 ambulatory Khadarjurgen Pickeringмария Facility:[facility] Start: 08-07-2024 End: 08-07-2024 Office outpatient visit 40 minutes Rosalino Padron MD Work Phone: [facility] Comment on above: ILD (interstitial lavonne ng disease) (Multi) (Primary Dx); Chronic respiratory failure with hypoxia; KIANNA (obstructive sleep apnea); BMI 40.0-44.9, adult (Multi); Diastolic heart failure, unspecified HF chronicity Start: 08-07-2024 End: 08-07-2024 ambulatory [facility] Start: 08-06-2024 End: 08-06-[address] Toni Vann MD -[facility] Work Phone: Start: 08-06-2024 End: 08-06-2024 Dr. Toni Vann MD -[facility] Work Phone: Start: 08-06-2024 End: 08-06-2024 ambulatory Radha Khan Facility:[facility] Start: 07-24-2024 End: 07-24-2024 Subsequent hospital visit by physician Clifford kamara Pft Room [facility] Comment on above: ILD (interstitial lavonne ng disease) (Multi) Start: 07-24-2024 End: 07-24-[address] [facility] Start: 07-23-2024 End: 07-23-2024 Subsequent hospital visit by physician Michael Stallings [facility] Comment on above: Pulmonary hypertensi on (Multi) Start: 07-23-2024 End: 07-23-2024 ambulatory [facility] Start: 07-20-2024 End: 07-20-2024 Subsequent hospital visit by physician Lorenza [id number] [address] [facility] Comment on above: ILD (interstitial lavonne ng disease) (Multi) Start: 07-20-2024 End: 07-20-2024 ambulatory [facility] Start: 07-06-2024 End: 07-06-[address] Toni Vann MD -[facility] Work Phone: Start: 07-06-2024 End: 07-06-2024 Dr. Toni Vann MD -[facility] Work Phone: Start: 07-06-2024 End: 07-06-2024 ambulatory Radha S Jolliff Facility:[facility] Start: 06-26-2024 End: 06-26-2024 Office outpatient new 60 minutes Rosalino Padron MD Work Phone: [facility] Comment on above: ILD (interstitial lavonne ng disease) (Multi) (Primary Dx); Pulmonary hypertension (Multi); Chronic respiratory failure with hypoxia (Multi) Start: 06-26-2024 End: 06-26-2024 ambulatory [facility] Start: 06-10-2024 End: 06-10-2024 Patient encounter procedure SAV Rojas -[facility] Work Phone: Start: 06-10-2024 End: 06-10-2024 [facility] Work Phone: Start: 06-10-2024 End: 06-10-2024 ambulatory Radha S Jolliff Facility:[facility] Start: 06-04-2024 End: 06-04-[address] Toni Vann MD -[facility] Work Phone: Start: 06-04-2024 End: 06-04-2024 Dr. Toni Vann MD -[facility] Work Phone: Start: 06-04-2024 End: 06-04-2024 ambulatory Radha S Jolliff Facility:[facility] Start: 06-02-2024 End: 06-02-2024 Patient encounter procedure SENIOR FINANCE MANAGER Chen Bob -Sleep Lab Work Phone: Start: 06-02-2024 End: 06-02-2024 SENIOR FINANCE MANAGER Chen Bob -Sleep Lab Work Phone: Start: 06-02-2024 End: 06-02-2024 ambulatory Radha S Jolliff Facility:[facility] Start: 05-28-2024 Non-patient / Non-visit Dr. Jemima MCRAE -[facility] Work Phone: Start: 05-28-2024 ambulatory Radha S Jolliff Facility: [facility] Start: 05-28-2024 Registered Referred Lydia GRIFFITHS -Cardiovascular Services Work Phone: Start: 05-28-2024 Dr. Sumanth Hanna MD -[facility] Work Phone: Start: 05-21-2024 End: 05-21-2024 Patient encounter procedure Lydia GRIFFITHS -Laboratory Work Phone: Start: 05-21-2024 End: 05-21-2024 Lydia GRIFFITHS -Laboratory Work Phone: Start: 05-21-2024 End: 05-21-2024 Patient encounter procedure Lydia GRIFFITHS -[facility] Work Phone: Start: 05-21-2024 End: 05-21-2024 Lydia GRIFFITHS -[facility] Work Phone: Start: 05-21-2024 End: 05-21-2024 ambulatory Radha S Jolliff Facility:[facility] Start: 05-21-2024 End: 05-21-2024 ambulatory Radha S Jolliff Facility:[facility] Start: 05-08-2024 End: 05-08-2024 Telephone encounter Oziel Culp MD Work Phone: [facility] Start: 05-07-2024 End: 05-08-2024 Orders Only Mey Loya CORPORATE FINANCIAL ANALYST - [employer]ING [employer]ER Work Phone: [facility] Comment on above: Bilateral carotid ar christine stenosis (Primary Dx) Start: 05-06-2024 End: 05-06-2024 Subsequent hospital visit by physician Ach Ecg [facility] Comment on above: Arrived Ischemic cerebrovasc ular accident (CVA) (HCC); Bilateral carotid artery stenosis Start: 05-06-2024 End: 05-06-2024 ambulatory MEY LOYA [facility] Start: 05-05-2024 End: 05-05-2024 ambulatory Radha S Jolliff [facility] Start: 05-05-2024 End: 05-05-2024 Dr. Rito Lundberg MD -[facility] Work Phone: Start: 05-01-2024 End: 05-01-2024 SAV Rojas -[facility] Work Phone: Start: 05-01-2024 End: 05-01-2024 ambulatory Radha S Jolliff [facility] Start: 04-30-2024 End: 04-30-2024 Dr. Ochoa Dobbs MD -[facility] Work Phone: Start: 04-30-2024 End: 04-30-2024 ambulatory Radha S Jolliff [facility] Start: 04-30-2024 End: 04-30-2024 Dr. Toni Vann MD -[facility] Work Phone: Start: 04-30-2024 End: 04-30-2024 ambulatory Radha S Jolliff [facility] Start: 04-27-2024 End: 04-27-2024 Office outpatient visit 25 minutes Suzy Jauregui MD Work Phone: [facility] [place] Comment on above: Cerebrovascular acci dent (CVA), unspecified mechanism (HCC) (Primary Dx); Bilateral carotid artery stenosis Start: 04-27-2024 End: 04-27-2024 ambulatory SUZY JAUREGUI [facility] Start: 04-25-2024 Dr. Ochoa Johnson DO -[facility] Inpatient Physicians Work Phone: Start: 04-24-2024 End: 04-25-2024 ambulatory Edmund Quispeugh Facility:[facility] Start: 04-24-2024 End: 04-25-2024 Dr. Ochoa Johnson DO -[facility] Work Phone: Start: 04-24-2024 End: 04-24-2024 Dr. Radha Khan MD -Laboratory Maged Harvey Start: 04-24-2024 End: 04-24-2024 ambulatory Radha S Jolliff Facility:[facility] Start: 04-23-2024 End: 04-23-2024 Telephone encounter Jessica Clifton RN [facility] Special Procedur es Start: 04-22-2024 End: 04-22-2024 SENIOR FINANCE MANAGER Chen Rojas -[facility] Work Phone: Start: 04-22-2024 End: 04-22-2024 ambulatory Radha S Jolliff [facility] Start: 04-20-2024 ambulatory Radha S Jolliff [facility] Start: 04-16-2024 End: 04-16-2024 Jessica Gerardo SENIOR FINANCE MANAGER-C -[facility] Work Phone: Start: 04-16-2024 End: 04-16-2024 ambulatory Radha S Jolliff [facility] Start: 04-15-2024 Dr. Cuco Soler MD -[facility] Inpatient Physicians Work Phone: Start: 04-14-2024 ambulatory Radha S Jolliff [facility]: [facility] Start: 04-13-2024 ambulatory Radha S Jolliff [facility]: [facility] Start: 04-12-2024 ambulatory Radha S Jolliff [facility]: [facility] Start: 04-12-2024 End: 04-15-2024 Evaluation and management of inpatient Cuco Soler Facility:[facility] Start: 04-12-2024 End: 04-15-2024 Dr. Cuco Soler MD -[facility] Work Phone: Start: 04-09-2024 End: 04-09-2024 ambulatory Radha S Jolliff Facility:[facility] Start: 04-06-2024 End: 04-06-2024 Subsequent hospital visit by physician Suzy Jauregui MD Work Phone: [facility] Comment on above: Bilateral carotid ar christine occlusion Start: 04-06-2024 End: 04-06-2024 ambulatory SUZY JAUREGUI [facility] Start: 03-30-2024 End: 03-30-2024 ambulatory Radha S Jolliff [facility] Start: 03-30-2024 ambulatory Radha S Jolliff [facility]: [facility] Start: 03-30-2024 End: 03-30-2024 ambulatory Radha S Jolliff Facility:[facility] Start: 03-27-2024 ambulatory Radha S Jolliff [facility]: [facility] Start: 03-27-2024 End: 03-27-2024 ambulatory Radha S Jolliff Facility:[facility] Start: 03-23-2024 End: 03-23-2024 ambulatory Radha S Jolliff [facility] Start: 03-13-2024 End: 03-13-2024 ambulatory Radha S Jolliff Facility[facility] Start: 03-03-2024 ambulatory Radha S Jolliff [facility]: [facility] Start: 03-02-2024 ambulatory Radha S Jolliff [facility]: [facility] Start: 03-02-2024 End: 03-04-2024 Evaluation and management of inpatient Radha S Jolliff Facility:[facility] Start: 02-26-2024 End: 02-26-2024 Emergency department patient visit Radha S Jolliff Facility:[facility] Start: 02-21-2024 ambulatory Radha S Jolliff Facility: [facility] Start: 02-20-2024 End: 02-20-2024 ambulatory Radha S Jolliff [facility] Start: 02-18-2024 End: 02-18-2024 ambulatory Radha S Jolliff [facility] Start: 02-13-2024 End: 02-13-2024 Orders Only Mey Loya CORPORATE FINANCIAL ANALYST - MANUFA[employer]URING PLANT [employer]OLLER Work Phone: [facility] Neurology Comment on above: Ischemic cerebrovasc ular accident (CVA) (HCC) (Primary Dx); Bilateral carotid artery stenosis Start: 02-07-2024 End: 02-07-2024 ambulatory Radha S Jolliff [facility] Start: 02-06-2024 End: 03-04-2024 Telephone encounter Oziel Culp MD Work Phone: [facility] Clinical Communication Start: 02-06-2024 End: 02-06-2024 Subsequent hospital visit by physician Oziel Culp MD Work Phone: [facility] [address] Comment on above: Arrived Start: 02-06-2024 End: 02-06-2024 ambulatory [facility] Start: 02-06-2024 End: 02-06-2024 ambulatory Radha Khan Facility:[facility] Start: 02-05-2024 End: 02-05-2024 ambulatory [facility] Start: 02-03-2024 End: 02-03-2024 ambulatory Radha Khan Facility:[facility] Start: 01-22-2024 End: 01-22-2024 ambulatory [facility] Start: 01-16-2024 End: 01-16-2024 Orders Only Mey Loya CORPORATE FINANCIAL ANALYST - MANUFACTURING PLANT CONTROLLER Work Phone: [facility] Comment on above: Chronic kidney disea se, unspecified CKD stage (Primary Dx) Start: 01-06-2024 End: 01-06-2024 Office outpatient visit 25 minutes Oziel Culp MD Work Phone: [facility] Comment on above: [...] Evaluation and management of inpatient CHITO BUENROSTRO CORPORATE FINANCIAL ANALYST-MANUFACTURING PLANT CONTROLLER [facility] Start: 08-05-2023 End: 08-05-[address] Radha Khan Work Phone: [facility] Work Phone: Start: 08-05-2023 End: 08-05-[address] Radha Khan Work Phone: [facility]-Laboratory Work Phone: Start: 07-17-2023 End: 07-17-[address] Radha Khan Work Phone: [facility] Vascular Surgery Work Phone: Start: 07-03-2023 End: 07-03-[address] Radha Khan Work Phone: [facility] Work Phone: Start: 06-06-2023 End: 06-06-[address] Radha Khan Work Phone: [facility] Work Phone: Start: 06-06-2023 End: 06-06-[address] Radha Khan Work Phone: [facility] Work Phone: Start: 05-21-2023 End: 05-21-[address] Radha Khan Work Phone: [facility] Work Phone: Start: 05-20-2023 End: 05-20-[address] Radha Khan Work Phone: [facility] Endocrinology Work Phone: Start: 05-01-2023 Non-patient / Non-visit Dr. Armen Khan Work Phone: [facility] Start: 05-01-2023 End: 05-01-[address] Radha Khan Work Phone: [facility] Work Phone: Start: 05-01-2023 End: 05-01-[address] Radha Khan Work Phone: [facility]-Cardiovascula r Services Work Phone: Start: 04-25-2023 End: 04-25-[address] Radha Khan Work Phone: [facility] Work Phone: Start: 04-25-2023 End: 04-25-[address] Radha Khan Work Phone: [facility]-Laboratory Work Phone: Start: 04-25-2023 End: 04-25-[address] Radha Khan Work Phone: [facility] Work Phone: Start: 03-15-2023 Non-patient / Non-visit Dr. Armen Khan Work Phone: [facility] Start: 03-15-2023 End: 03-15-[address] Radha Khan Work Phone: [facility] Work Phone: Start: 03-15-2023 End: 03-15-[address] Radha Khan Work Phone: [facility] Work Phone: Start: 03-12-2023 End: 03-12-[address] Radha Khan Work Phone: [facility] Neurology Work Phone: Start: 02-28-2023 End: 02-28-[address] Radha Khan Work Phone: [facility] Work Phone: Start: 02-28-2023 End: 02-28-[address] [facility] Work [facility]: Start: 02-28-2023 End: 02-28-[address] Radha Khan Work Phone: [facility] Work Phone: Start: 02-27-2023 End: 02-27-[address] Radha Khan Work Phone: [facility] Work Phone: Start: 02-26-2023 End: 02-26-[address] Radha Khan Work Phone: [facility] Work Phone: Start: 02-26-2023 End: 02-26-[address] Radha Khan Work Phone: [facility] [place] Work Phone: Start: 02-18-2023 End: 02-18-2023 Admission to same day surgery center Dr. Radha Khan Work Phone: [facility]Surgical Day [facility] Start: 02-18-2023 End: 02-18-[address] Radha Khan Work Phone: [facility] Work Phone: Start: 02-04-2023 End: 02-04-[address] Radha Khan Work Phone: [facility] Endocrinology Work Phone: Start: 01-15-2023 End: 01-15-[address] Radha Khan Work Phone: [facility] Work Phone: Start: 01-15-2023 End: 01-15-[address] Radha Khan Work Phone: [facility] [place] Work Phone: Start: 01-07-2023 End: 01-07-[address] Radha Khan Work Phone: [facility] Work Phone: Start: 01-07-2023 End: 01-07-[address] Radha Khan Work Phone: [facility] Work Phone: Start: 01-01-2023 End: 01-01-[address] Radha Khan Work Phone: [facility] Work Phone: Start: 01-01-2023 End: 01-01-[address] [facility] Work Phone: Start: 12-31-2022 End: 12-31-[address] Radha Khna Work Phone: [facility] [place] Work Phone: Start: 12-10-2022 End: 12-10-[address] Radha Khan Work Phone: [facility] Endocrinology Work Phone: Start: 11-09-2022 End: 11-09-[address] Radha Khan Work Phone: [facility] Work Phone: Start: 11-09-2022 End: 11-09-[address] Radha Khan Work Phone: [facility] Work Phone: Start: 11-07-2022 End: 11-07-[address] Radha Khan Work Phone: [facility] Work Phone: Start: 11-07-2022 End: 11-07-[address] Radha Khan Work Phone: [facility] Work Phone: Start: 10-31-2022 End: 10-31-[address] Radha Khan Work Phone: [facility] Work Phone: Start: 10-31-2022 End: 10-31-[address] Radha Khan Work Phone: [facility] Start: 10-12-2022 End: 10-12-[address] Radha Khan Work Phone: [facility] Work Phone: Start: 10-12-2022 End: 10-12-[address] Radha Khan Work Phone: [facility] Work Phone: Start: 10-08-2022 End: 10-08-[address] Radha Khan Work Phone: [facility] Work Phone: Start: 10-01-2022 Non-patient / Non-visit Dr. Armen Khan Work Phone: [facility] Start: 10-01-2022 End: 10-01-[address] Radha Khan Work Phone: [facility] Work Phone: Start: 10-01-2022 End: 10-01-[address] [facility] Work Phone: Start: 09-03-2022 End: 09-03-[address] Radha Khan Work Phone: [facility] Endocrinology Work Phone: Start: 08-03-2022 Non-patient / Non-visit Dr. Armen Khan Work Phone: [facility] Inpatient Physicians Start: 08-02-2022 Non-patient / Non-visit Dr. Armen Khan Work Phone: [facility] Start: 08-01-2022 End: 08-03-2022 Evaluation and management of inpatient Dr. Radha Khan Work Phone: [facility]-Progressive Care Unit Start: 08-01-2022 End: 08-03-[address] Radha Khan Work Phone: [facility] Work Phone: Start: 07-27-2022 End: 07-27-[address] Radha Khan Work Phone: [facility] Work Phone: Start: 07-27-2022 End: 07-27-[address] Radha Khan Work Phone: [facility] Start: 06-26-2022 End: 06-26-[address] Radha Khan Work Phone: [facility] Work Phone: Start: 06-26-2022 End: 06-26-[address] Radha Khan Work Phone: [facility] Start: 06-18-2022 End: 06-18-[address] Radha Khan Work Phone: [facility] Start: 06-12-2022 End: 06-12-[address] Radha Khan Work Phone: [facility]-Pulmonary Medicine [facility] Start: 05-21-2022 End: 05-21-[address] Radha Khan Work Phone: [facility] Start: 05-18-2022 End: 05-18-[address] Radha Khan Work Phone: [facility] Start: 05-09-2022 End: 05-09-2022 Admission to same day surgery center Dr. Radha Khan Work Phone: [facility]/Special Procedures Start: 05-09-2022 End: 05-09-[address] Radha Khan Work Phone: [facility] Work Phone: Start: 05-03-[address] Barney Khan Work Phone: [facility] Start: 05-03-[address] Dr[address] Toni Vann MD Work Phone: [facility] Start: 05-03-2022 End: 05-03-[address] Radha Khan Work Phone: [facility] Start: 04-27-2022 End: 04-27-[address] Radha Khan Work Phone: [facility] Work Phone: Start: 04-27-2022 End: 04-27-[address] Radha Khan Work Phone: [facility] Start: 04-17-2022 End: 04-17-[address] Radha Khan Work Phone: [facility] Work Phone: Start: 04-17-2022 End: 04-17-[address] Radha Khan Work Phone: [facility] Start: 03-12-2022 End: 03-12-[address] Radha Khan Work Phone: [facility] Start: 02-19-2022 End: 02-19-[address] Radha Khan Work Phone: [facility] Heart [facility] Start: 02-17-2022 Non-patient / Non-visit Dr. Armen Khan Work Phone: [facility] Start: 02-16-2022 End: 02-16-[address] Radha Khan Work Phone: [facility] Work Phone: Start: 02-16-2022 End: 02-16-[address] Radha Khan Work Phone: [facility]-Pulmonary Services/Neurology Start: 02-12-2022 End: 02-12-[address] [facility] Start: 01-15-2022 End: 01-15-[address] Radha Khan Work Phone: [facility] Start: 11-13-2021 End: 11-13-[address] Radha Khan Work Phone: [facility] Heart [facility] Start: 09-19-2021 End: 09-19-[address] Radha Khan Work Phone: [facility]-Pulmonary Services/Neurology Start: 09-07-2021 End: 09-07-[address] Radha Khan Work Phone: [facility] Heart [facility] Start: 09-04-2021 End: 09-04-2021 Emergency department patient visit Dr. Radha Khan Work Phone: [facility]-Emergency Department Start: 08-14-2021 Non-patient / Non-visit Dr. Armen Khan Work Phone: [facility] Start: 08-14-2021 End: 08-14-[address] Radha Khan Work Phone: [facility]-Cardiovascula r Services Start: 08-10-2021 End: 08-10-[address] Radha Khan Work Phone: [facility] Start: 08-09-2021 End: 08-09-[address] Radha Khan Work Phone: [facility]-Sleep Lab Start: 07-16-2021 End: 07-16-2021 Emergency department patient visit Dr. Radha Khan Work Phone: [facility]-Emergency Department Start: 07-13-2021 End: 07-13-[address] Radha Khan Work Phone: [facility]-Pulmonary Medicine [facility] Start: 07-12-2021 End: 07-12-[address] Radha Khan Work Phone: [facility]-Laboratory Start: 07-12-2021 End: 07-12-[address] Radha Khan Work Phone: [facility] Group Start: 06-29-2021 End: 06-29-[address] Radha Khan Work Phone: [facility] Start: 06-20-2021 Non-patient / Non-visit Dr. Armen Khan Work Phone: [facility] Inpatient Physicians Start: 06-19-2021 Non-patient / Non-visit Dr. Armen Khan Work Phone: [facility] Start: 06-19-2021 Non-patient / Non-visit Dr. Armen Khan Work Phone: [facility] Inpatient Physicians Start: 06-19-2021 End: 06-20-2021 Evaluation and management of inpatient Dr. Radha [facility] Start: 06-15-2021 Non-patient / Non-visit Dr. Armen Khan Work Phone: [facility] Start: 06-15-2021 End: 06-15-[address] [facility] Start: 06-02-2021 End: 06-02-[address] Rad[facility] Start: 06-02-2021 Non-patient / Non-visit Dr. Armen Khan Work Phone: [facility] Start: 06-01-2021 End: 06-01-[address] Rad[facility] [place] Start: 06-01-2021 End: 06-01-[address] Radha Khan Work Phone: [facility] Start: 05-30-2021 End: 05-30-[address] Radha Khan Work Phone: [facility] Start: 12-27-2010 End: 12-27-2010 Patient encounter procedure Karlos Aquino Work Phone: [facility] Start: 12-27-2010 Results Only Karlos lehman Work Phone: [facility] Procedures Date Procedure Procedure Detail [...] Start: 11-03-2024 Platelet mean volume determination Dr. aRdha Khan MD Work Phone: Start: 11-03-2024 Total [...] Phone: Start: 09-27-[address] 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 PLANT [employer]OLLER Work Phone: Start: 05-05-2024 Blood count smear [...] Author Start: 10-03-2028 Lipid panel Lipid Panel [facility] Start: 09-23-2025 Creatinine measurement Creatinine Level [facility] Start: 09-23-2025 Potassium measurement Potassium Level [facility] Start: 07-23-2025 Echocardiography Echocardiogram [facility] Start: 05-06-2025 Creatinine measurement Creatinine Level [facility] Start: 05-06-2025 Diabetes: Estimated Glomerular Filtration Rate for Kidney Health Diabetes: Estimated Glomerular Filtration Rate for Kidney Health [facility] Start: 05-06-2025 Potassium measurement Potassium Level [facility] Start: 05-03-2025 Reticulocyte count [facility] Start: 04-17-2025 End: 01-15-[address] chest high resolution Imaging Routine ILD (interstitial lung disease) (Multi) Expected: 04/17/2025, Expires: 01/15/2026 [facility] Service Area Work Phone: Comment on above: Expected: 04/17/2025, Expires: Start: 03-19-2025 End: 03-19-2025 Patient encounter procedure 03/19/2025 2:30 PM EST Office [facility] [address] [place] [id number] [place] [address] [place] [address] [facility] Start: 01-18-2025 End: 01-18-2026 Creatinine [Mass/volume] in Serum or Plasma Creatinine, Serum Lab Routine Bilateral carotid artery stenosis Expected: 01/18/2025 (Approximate), Expires: 01/18/2026 [facility] Work Phone: Comment on above: Expected: 01/18/2025 (Approximate), Expi res: 01/18/2026 Start: 01-18-2025 End: 01-18-2026 CTA Head vessels WO and W contrast IV CTA head angio w and wo IV contrast Imaging Routine Bilateral carotid artery stenosis Expected: 01/18/2025, Expires: 01/18/2026 [facility] Comment on above: Expected: 01/18/2025, Expires: Start: 01-18-2025 End: 01-18-2026 Electroencephalogram EEG Neurology Routine Transient alteration of awareness Expected: 01/18/2025 (Approximate), Expires: 01/18/2026 [facility] Comment on above: Expected: 01/18/2025 (Approximate), Expi res: 01/18/2026 Start: 01-18-2025 End: 01-18-2025 Patient encounter procedure [facility] Endovascular Neurology Start: 01-15-2025 End: 01-15-2025 Patient encounter procedure [facility] Start: 12-23-2024 [facility] Start: 12-23-2024 CT of head without contrast [facility] Start: 12-23-2024 Urine culture [facility] Start: 12-23-2024 End: 12-24-2024 -Emergency Department Work Phone: Start: 12-17-2024 Iv infusion hydration each additional hour [facility] Start: 12-17-2024 End: 12-29-2024 -Wound Healing Center Work Phone: Start: 12-10-2024 Intravenous infusion [facility] Start: 12-09-2024 End: 12-09-2024 Patient encounter procedure [facility] Start: 12-04-2024 End: 12-04-2024 Patient encounter procedure 12/04/2024 1:00 PM EDT Office Visit [facility] [id number] [facility] [address] [place] [phone] [place] [address] [place] [address] [facility] Start: 11-30-2024 Influenza vaccination Influenza Vaccine (#1) [facility] Start: 11-28-2024 Patient discharge [facility] Start: 11-27-2024 [facility] Start: 11-26-2024 Blood culture [facility] Start: 11-26-2024 Urine culture [facility] Start: 11-26-2024 Following clinical pathway protocol [facility] Start: 11-26-2024 Assessment of risk of venous thromboembolism [facility] Start: 11-26-2024 Care regimes management [facility] Start: 11-26-2024 Catheterization of vein [facility] Start: 11-26-2024 End: 11-26-2024 Consultation for treatment [facility] Start: 11-26-2024 Inhalation therapy procedure [facility] Start: 11-26-2024 Insertion of catheter into peripheral vein [facility] Start: 11-26-2024 Measuring intake and output [facility] Start: 11-26-2024 Notification of physician [place] [facility] Start: 11-26-2024 Oxygen therapy [facility] Start: 11-26-2024 Patient referral to dietitian [facility] Start: 11-26-2024 Providing care according to standard [facility] Start: 11-26-2024 Provision of activity privileges [facility] Start: 11-26-2024 Referral for physical therapy [facility] Start: 11-26-2024 Referral to occupational therapist [facility] Start: 11-26-2024 Referral to service [facility] Start: 11-26-2024 End: 11-26-2024 [facility] Start: 11-26-2024 Hospital admission, emergency, from emergency room, medical nature [facility] Start: 11-26-2024 Verification routine [facility] Start: 11-26-2024 Admission procedure [facility] Start: 11-26-2024 End: 11-26-2024 [facility] Start: 11-26-2024 Patient referral to [facility] Start: 11-13-2024 End: 11-13-2025 DLCO / Diffusion Capacity DLCO / Diffusion Capacity PFT Routine ILD (interstitial lung disease) (Multi) Expected: 11/13/2024 (Approximate), Expires: 11/13/2025 [facility] Work Phone: Comment on above: Expected: 11/13/2024 (Approximate), Expi res: 11/13/2025 Start: 11-13-2024 End: 11-13-2025 Pulmonary Stress Test (6 Min. Walk) Pulmonary Stress Test (6 Min. Walk) PFT Routine ILD (interstitial lung disease) (Multi) Expected: 11/13/2024 (Approximate), Expires: 11/13/2025 [facility] Work Phone: Comment on above: Expected: 11/13/2024 (Approximate), Expi res: 11/13/2025 Start: 11-13-2024 End: 11-13-2025 Spirometry Pre/Post Bronchodilator Spirometry Pre/Post Bronchodilator PFT Routine ILD (interstitial lung disease) (Multi) Expected: 11/13/2024 (Approximate), Expires: 11/13/2025 [facility] Service Area Work Phone: Comment on above: Expected: 11/13/2024 (Approximate), Expi res: 11/13/2025 Start: 11-03-2024 [facility] Start: 10-30-2024 Influenza vaccination Influenza Vaccine (#1) [facility] Start: 10-04-2024 Creatinine measurement Creatinine Level [facility] Start: 10-04-2024 Diabetes: Estimated Glomerular Filtration Rate for Kidney Health Diabetes: Estimated Glomerular Filtration Rate for Kidney Health [facility] Start: 10-04-2024 Potassium measurement Potassium Level [facility] Start: 10-03-2024 Diabetes mellitus screening Diabetes Screening [facility] Start: 10-03-2024 Hemoglobin A1c measurement Diabetes: Hemoglobin A1C [facility] Start: 10-03-2024 Lipid panel Lipid Panel [facility] Start: 09-28-2024 Patient discharge [facility] Start: 09-27-2024 [facility] Start: 09-27-2024 Care planning and problem solving actions [facility] Start: 09-26-2024 Application of intermittent pneumatic compression device [facility] Start: 09-26-2024 Admission procedure [facility] Start: 09-26-2024 Care planning and problem solving actions [facility] Start: 09-26-2024 Vital signs measurements [facility] Start: 09-26-2024 Aspiration precautions [facility] Start: 09-26-2024 Cardiac monitoring [facility] Start: 09-26-2024 Catheterization of vein [facility] Start: 09-26-2024 Consultation [facility] Start: 09-26-2024 Continuous pulse oximetry [facility] Start: 09-26-2024 Elevation of head of bed [facility] Start: 09-26-2024 Exercises [facility] Start: 09-26-2024 Oxygen therapy [facility] Start: 09-26-2024 Patient referral to dietitian [facility] Start: 09-26-2024 Referral for physical therapy [facility] Start: 09-26-2024 Referral to occupational therapist [facility] Start: 09-26-2024 Referral to service [facility] Start: 09-26-2024 Speech therapy assessment [facility] Start: 09-26-2024 Telemedicine consultation with patient [facility] Start: 09-26-2024 Tobacco use cessation education [facility] Start: 09-26-2024 End: 09-26-2024 [facility] Start: 09-26-2024 Assessment of risk of venous thromboembolism [facility] Start: 09-26-2024 Care regimes management [facility] Start: 09-26-2024 Insertion of catheter into peripheral vein [facility] Start: 09-26-2024 Measuring intake and output [facility] Start: 09-26-2024 End: 09-26-2024 Notification of physician [facility] Start: 09-26-2024 Providing care according to standard [facility] Start: 09-26-2024 Provision of activity privileges [facility] Start: 09-26-2024 Following clinical pathway protocol [facility] Start: 09-26-2024 Admission procedure [facility] Start: 09-26-2024 [facility] Start: 09-26-2024 CT angiography of head and neck STROKE CTA Head AND Neck W/Con [facility] Start: 09-26-2024 CTA Head vessels and Neck vessels W contrast IV [facility] Start: 09-26-2024 Hospital admission, emergency, from emergency room, medical nature [facility] Start: 09-26-2024 Oxygen therapy [facility] Start: 09-26-2024 End: 09-26-2024 [facility] Start: 09-26-2024 Patient referral to dietitian [facility] Start: 08-28-2024 End: 08-28-2025 DLCO / Diffusion Capacity DLCO / Diffusion Capacity PFT Routine ILD (interstitial lung disease) (Multi) Chronic respiratory failure with hypoxia Expected: 08/28/2024 (Approximate), Expires: 08/28/2025 [facility] Work Phone: Comment on above: Expected: 08/28/2024 (Approximate), Expi res: 08/28/2025 Start: 08-28-2024 End: 08-28-2025 Pulmonary Stress Test (6 Min. Walk) Pulmonary Stress Test (6 Min. Walk) PFT Routine ILD (interstitial lung disease) (Multi) Chronic respiratory failure with hypoxia Expected: 08/28/2024 (Approximate), Expires: 08/28/2025 [facility] Work Phone: Comment on above: Expected: 08/28/2024 (Approximate), Expi res: 08/28/2025 Start: 08-28-2024 End: 08-28-2025 Spirometry Pre/Post Bronchodilator Spirometry Pre/Post Bronchodilator PFT Routine ILD (interstitial lung disease) (Multi) Chronic respiratory failure with hypoxia Expected: 08/28/2024 (Approximate), Expires: 08/28/2025 [facility] Service Area Work Phone: Comment on above: Expected: 08/28/2024 (Approximate), Expi res: 08/28/2025 Start: 08-28-2024 End: 08-28-2024 Patient encounter procedure [facility] Start: 08-12-2024 X-ray of chest, PA and lateral views [facility] Start: 08-07-2024 End: 08-07-2025 DLCO / Diffusion Capacity DLCO / Diffusion Capacity PFT Routine ILD (interstitial lung disease) (Multi) Expected: 08/07/2024 (Approximate), Expires: 08/07/2025 [facility] Work Phone: Comment on above: Expected: 08/07/2024 (Approximate), Expi res: 08/07/2025 Start: 08-07-2024 End: 08-07-2025 Pulmonary Stress Test (6 Min. Walk) Pulmonary Stress Test (6 Min. Walk) PFT Routine ILD (interstitial lung disease) (Multi) Expected: 08/07/2024 (Approximate), Expires: 08/07/2025 [facility] Work Phone: Comment on above: Expected: 08/07/2024 (Approximate), Expi res: 08/07/2025 Start: 08-07-2024 End: 05-09-2026 Spirometry Pre/Post Bronchodilator Spirometry Pre/Post Bronchodilator PFT Routine ILD (interstitial lung disease) (Multi) Expected: 08/07/2024 (Approximate), Expires: 08/07/2025 [facility] Service Area Work Phone: Comment on above: Expected: 08/07/2024 (Approximate), Expi res: 08/07/2025 Start: 07-24-2024 End: 07-24-2024 Patient encounter procedure [facility] Start: 07-23-2024 End: 07-23-2024 Patient encounter procedure 07/23/2024 2:00 PM EDT Appointment [facility] [address] [place] [address] [facility] Start: 07-19-2024 DTaP/Tdap/Td Vaccines (2 - Td or Tdap) DTaP/Tdap/Td Vaccines (2 - Td or Tdap) [facility] Start: 07-13-2024 End: 07-13-2024 Patient encounter procedure 07/13/2024 2:00 PM EDT Appointment [facility] [address] [place] [id number] [facility] Start: 06-26-2024 End: 06-26-2025 Aldolase [Enzymatic activity/volume] in Serum or Plasma Aldolase Lab Routine ILD (interstitial lung disease) (Multi) Expected: 06/26/2024 (Approximate), Expires: 06/26/2025 [facility] Work Phone: Comment on above: Expected: 06/26/2024 (Approximate), Expi res: 06/26/2025 Start: 06-26-2024 End: 06-26-2025 C reactive protein [Mass/volume] in Serum or Plasma C-Reactive Protein Lab Routine ILD (interstitial lung disease) (Multi) Expected: 06/26/2024 (Approximate), Expires: 06/26/2025 [facility] Work Phone: Comment on above: Expected: 06/26/2024 (Approximate), Expi res: 06/26/2025 Start: 06-26-2024 End: 06-26-2025 Complete Pulmonary Function Test (Spirometry/DLCO/Lung Volumes) Complete Pulmonary Function Test (Spirometry/DLCO/Lung Volumes) PFT Routine ILD (interstitial lung disease) (Multi) Expected: 06/26/2024 (Approximate), Expires: 06/26/2025 [facility] Work Phone: Comment on above: Expected: 06/26/2024 (Approximate), Expi res: 06/26/2025 Start: 06-26-2024 End: 06-26-2025 Creatine kinase [Enzymatic activity/volume] in Serum or Plasma Creatine Kinase Lab Routine ILD (interstitial lung disease) (Multi) Expected: 06/26/2024 (Approximate), Expires: 06/26/2025 [facility] Work Phone: Comment on above: Expected: 06/26/2024 (Approximate), Expi res: 06/26/2025 Start: 06-26-2024 End: 06-26-[address] chest high resolution Imaging Routine ILD (interstitial lung disease) (Multi) Expected: 06/26/2024 (Approximate), Expires: 06/26/2025 [facility] Service Area Work Phone: Comment on above: Expected: 06/26/2024 (Approximate), Expi res: 06/26/2025 Start: 06-26-2024 End: 06-26-2025 Cyclic citrullinated peptide IgG Ab [Units/volume] in Serum or Plasma Citrulline Antibody, IgG Lab Routine ILD (interstitial lung disease) (Multi) Expected: 06/26/2024 (Approximate), Expires: 06/26/2025 [facility] Work Phone: Comment on above: Expected: 06/26/2024 (Approximate), Expi res: 06/26/2025 Start: 06-26-2024 End: 06-26-2025 Erythrocyte sedimentation rate Sedimentation Rate Lab Routine ILD (interstitial lung disease) (Multi) Expected: 06/26/2024 (Approximate), Expires: 06/26/2025 [facility] Work Phone: Comment on above: Expected: 06/26/2024 (Approximate), Expi res: 06/26/2025 Start: 06-26-2024 End: 06-26-2025 Extended Myositis Panel Extended Myositis Panel Lab Routine ILD (interstitial lung disease) (Multi) Expected: 06/26/2024 (Approximate), Expires: 06/26/2025 [facility] Work Phone: Comment on above: Expected: 06/26/2024 (Approximate), Expi res: 06/26/2025 Start: 06-26-2024 End: 06-26-2025 Hypersensitivity Pneumonitis Panel Hypersensitivity Pneumonitis Panel Lab Routine ILD (interstitial lung disease) (Multi) Expected: 06/26/2024 (Approximate), Expires: 06/26/2025 [facility] Work Phone: Comment on above: Expected: 06/26/2024 (Approximate), Expi res: 06/26/2025 Start: 06-26-2024 End: 06-26-2025 MPO, PR3 with Reflex to ANCA MPO, PR3 with Reflex to ANCA Lab Routine ILD (interstitial lung disease) (Multi) Expected: 06/26/2024 (Approximate), Expires: 06/26/2025 [facility] Work Phone: Comment on above: Expected: 06/26/2024 (Approximate), Expi res: 06/26/2025 Start: 06-26-2024 End: 06-26-2025 Nuclear Ab [Presence] in Serum by Hep2 substrate RICARDO with Reflex to NEELA Lab Routine ILD (interstitial lung disease) (Multi) Expected: 06/26/2024 (Approximate), Expires: 06/26/2025 [facility] Work Phone: Comment on above: Expected: 06/26/2024 (Approximate), Expi res: 06/26/2025 Start: 06-26-2024 End: 06-26-2025 Pulmonary Stress Test (6 Min. Walk) Pulmonary Stress Test (6 Min. Walk) PFT Routine ILD (interstitial lung disease) (Multi) Expected: 06/26/2024 (Approximate), Expires: 06/26/2025 [facility] Work Phone: Comment on above: Expected: 06/26/2024 (Approximate), Expi res: 06/26/2025 Start: 06-26-2024 End: 06-26-2025 Rheumatoid factor [Units/volume] in Serum by Nephelometry Rheumatoid Factor Lab Routine ILD (interstitial lung disease) (Multi) Expected: 06/26/2024 (Approximate), Expires: 06/26/2025 [facility] Work Phone: Comment on above: Expected: 06/26/2024 (Approximate), Expi res: 06/26/2025 Start: 06-26-2024 End: 06-26-2026 US Heart Transthoracic Transthoracic Echo (TTE) Complete Echocardiography Routine Pulmonary hypertension ([facility]) Expected: 06/26/2024 (Approximate), Expires: 06/26/2026 [facility] Work Phone: Comment on above: Expected: 06/26/2024 (Approximate), Expi res: 06/26/2026 Start: 05-06-2024 End: 05-06-2024 Patient encounter procedure 05/06/2024 10:00 AM EST Appointment [facility] [address] [facility] [place] [phone] [facility] Start: 04-27-2024 End: 04-27-2024 Patient encounter procedure 04/27/2024 3:00 PM EST Office Visit [facility] [address] [place] [phone] Suzy Jauregui MD [address] [place], [place] [id number] [facility] Start: 04-25-2024 Patient discharge [facility] Start: 04-24-2024 Dual pressure spontaneous ventilation support [facility] Start: 04-24-2024 Aspiration precautions [facility] Start: 04-24-2024 Assessment of risk of venous thromboembolism [facility] Start: 04-24-2024 Cardiac monitoring [facility] Start: 04-24-2024 Care regimes management [facility] Start: 04-24-2024 Catheterization of vein [facility] Start: 04-24-2024 Consultation [facility] Start: 04-24-2024 Continuous pulse oximetry [facility] Start: 04-24-2024 Elevation of head of bed [facility] Start: 04-24-2024 Exercises [facility] Start: 04-24-2024 Fall prevention [facility] Start: 04-24-2024 Inhalation therapy procedure [facility] Start: 04-24-2024 Insertion of catheter into peripheral vein [facility] Start: 04-24-2024 Introduction of urinary catheter [facility] Start: 04-24-2024 Measuring intake and output [facility] Start: 04-24-2024 Notification of physician [facility] Start: 04-24-2024 Oxygen therapy [facility] Start: 04-24-2024 Patient referral to [facility] Start: 04-24-2024 Providing care according to standard [facility] Start: 04-24-2024 Provision of activity privileges [facility] Start: 04-24-2024 Referral to occupational therapist [facility] Start: 04-24-2024 Referral to service [facility] Start: 04-24-2024 Speech therapy assessment [facility] Start: 04-24-2024 Telemedicine consultation with patient [facility] Start: 04-24-2024 Tobacco use cessation education [facility] Start: 04-24-2024 End: 04-24-2024 [facility] Start: 04-24-2024 Following clinical pathway protocol [facility] Start: 04-24-2024 Admission procedure [facility] Start: 04-24-2024 Patient referral to [facility] Start: 04-24-2024 [facility] Start: 04-15-2024 Referral to service [facility] Start: 04-15-2024 Patient discharge [facility] Start: 04-15-2024 Fluid restriction [facility] Start: 04-14-2024 [facility] Start: 04-13-2024 Consultation [facility] Start: 04-13-2024 [facility] Start: 04-13-2024 Elevation of head of bed [facility] Start: 04-13-2024 Patient education [facility] Start: 04-13-2024 [facility] Start: 04-12-2024 Following clinical pathway protocol [facility] Start: 04-12-2024 Ambulation without limitation [facility] Start: 04-12-2024 Assessment of risk of venous thromboembolism [facility] Start: 04-12-2024 Care regimes management [facility] Start: 04-12-2024 Catheterization of vein [facility] Start: 04-12-2024 Elevation of affected extremity [facility] Start: 04-12-2024 Inhalation therapy procedure [facility] Start: 04-12-2024 Insertion of catheter into peripheral vein [facility] Start: 04-12-2024 Measuring intake and output [facility] Start: 04-12-2024 Notification of physician [facility] Start: 04-12-2024 Oxygen therapy [facility] Start: 04-12-2024 Patient education [facility] Start: 04-12-2024 Providing care according to standard [facility] Start: 04-12-2024 End: 04-12-2024 [facility] Start: 04-12-2024 Admission procedure [facility] Start: 04-12-2024 Patient referral to dietitian [facility] Start: 02-13-2024 End: 02-12-2025 RFA Cerebral arteries Bilateral Views W contrast IA IR angiogram cerebral with possible intervention Imaging Routine Ischemic cerebrovascular accident (CVA) (HCC) Bilateral carotid artery stenosis Expected: 02/13/2024, Expires: 02/12/2025 [employer] Work Phone: Comment on above: Expected: 02/13/2024, Expires: Start: 01-22-2024 Subsequent hospital visit by physician 01/22/2024 10:45 AM EDT Hospital Encounter [facility] [address] [place] [address] Oziel Culp MD [address] [place] [address] [facility] [address] Start: 01-20-2024 End: 01-05-2025 CTA Head vessels and Neck vessels WO and W contrast IV CTA head neck angio w and wo IV contrast Imaging Routine Bilateral carotid artery stenosis Ischemic cerebrovascular accident (CVA) (HCC) Expected: 01/20/2024, Expires: 01/05/2025 [employer] Work Phone: Comment on above: Expected: 01/20/2024, Expires: Start: 01-16-2024 End: 01-15-2025 Creatinine [Mass/volume] in Serum or Plasma Creatinine, Serum Lab Routine Chronic kidney disease, unspecified CKD stage Expected: 01/16/2024 (Approximate), Expires: 01/15/2025 [employer] Work Phone: Comment on above: Expected: 01/16/2024 (Approximate), Expi res: 01/15/2025 Start: 12-01-2023 Influenza vaccination Influenza Vaccine (#1) [facility] Start: 2023 RSV Immunization aged 60 or older (1 - 1-dose 60+ series) RSV Immunization aged 60 or older (1 - 1-dose 60+ series) [facility] Start: 2023 RSV Immunization for Adults (1 - Risk 60-74 years 1-dose series) RSV Immunization for Adults (1 - Risk 60-74 years 1-dose series) [facility] Start: 07-03-2023 Patient referral [facility] Work Phone: Start: 02-18-2023 Anesthesia cervical spine & cord nos ANESTH SPINE CORD SURGERY [facility] Start: 02-18-2023 Njx dx/ther agt pvrt facet jt crv/thrc 1 level INJ PARAVERT F JNT C/T 1 [facility] Start: 02-18-2023 Njx dx/ther agt pvrt facet jt crv/thrc 2nd level INJ PARAVERT F JNT C/T 2 [facility] Start: 02-18-2023 Njx dx/ther agt pvrt facet jt crv/thrc 3+ level INJ PARAVERT F JNT C/T 3 LEV [facility] Start: 02-18-2023 Fluoroscopy guided injection of cervical spinal nerve root OR-Steroid Inj/Cer Thor/1st L [facility] Start: 02-18-2023 Injection of facet joint [facility] Start: 02-18-2023 X-ray of cervical spine Cerv Spine 4 or 5 Views [facility] Start: 02-18-2023 Patient discharge [facility] Start: 12-10-2022 Patient referral [facility] Work Phone: Start: 10-08-2022 Patient referral [facility] Work Phone: Start: 08-03-2022 Patient discharge [facility] Start: 08-03-2022 Referral to occupational therapist [facility] Start: 08-03-2022 Referral to service [facility] Start: 08-02-2022 [facility] Start: 08-02-2022 Following clinical pathway protocol [facility] Start: 08-02-2022 Assessment of risk of venous thromboembolism [facility] Start: 08-02-2022 Cardiac monitoring [facility] Start: 08-02-2022 Care regimes management [facility] Start: 08-02-2022 Catheterization of vein [facility] Start: 08-02-2022 Elevation of head of bed [facility] Start: 08-02-2022 Exercises [facility] Start: 08-02-2022 Fall prevention [facility] Start: 08-02-2022 Implementation of planned interventions [facility] Start: 08-02-2022 Inhalation therapy procedure [facility] Start: 08-02-2022 Insertion of catheter into peripheral vein [facility] Start: 08-02-2022 Introduction of urinary catheter [facility] Start: 08-02-2022 Measuring intake and output [facility] Start: 08-02-2022 Notification of physician [facility] Start: 08-02-2022 Oxygen therapy [facility] Start: 08-02-2022 End: 08-02-2022 Patient referral to dietitian [facility] Start: 08-02-2022 Providing care according to standard [facility] Start: 08-02-2022 Provision of activity privileges [facility] Start: 08-02-2022 Referral to occupational therapist [facility] Start: 08-02-2022 Referral to service [facility] Start: 08-02-2022 Speech therapy assessment [facility] Start: 08-02-2022 Tobacco use cessation education [facility] Start: 08-02-2022 [facility] Start: 08-01-2022 Admission procedure [facility] Start: 08-14-2021 Radionuclide imaging of perfusion of myocardium under exercise stress Nuclear Stress Test - Treadmil [facility] Work Phone: Start: 06-20-2021 Patient discharge [facility] Work Phone: Start: 06-19-2021 Following clinical pathway protocol [facility] Work Phone: Start: 06-19-2021 Care regimes management [facility] Work Phone: Start: 06-19-2021 Notification of physician [facility] Work Phone: Start: 06-19-2021 End: 06-19-2021 [facility] Work Phone: Start: 06-19-2021 Admission procedure [facility] Work Phone: Start: 08-05-2020 COVID-19 Vaccine (3 - Moderna risk series) COVID-19 Vaccine (3 - Moderna risk series) [facility] Start: 07-03-2020 PROSTATE CANCER SCREENING DISCUSSION PROSTATE CANCER SCREENING DISCUSSION [facility] Start: 12-01-2019 Influenza vaccination INFLUENZA (#1) [facility] Start: 09-20-2016 Thyroid stimulating hormone measurement TSH Level [facility] Start: 09-09-2016 [object Object] DIABETIC FOOT EXAM [facility] Start: 12-12-2015 HbA1c (Bld) [Mass fraction] HBA1C [facility] Start: 12-07-2015 Pneumococcal vaccination Pneumococcal Vaccine (2 of 2 - PCV) [facility] Start: 12-07-2015 Pneumococcal Vaccine: 50+ Years (2 of 2 - PCV) Pneumococcal Vaccine: 50+ Years (2 of 2 - PCV) [facility] Start: 12-07-2015 Pneumococcal Vaccine: Pediatrics (0 to 5 Years) and At-Risk Patients (6 to 64 Years) (2 of 2 - PCV) Pneumococcal Vaccine: Pediatrics (0 to 5 Years) and At-Risk Patients (6 to 64 Years) (2 of 2 - PCV) [facility] Start: 08-24-2013 Prostate specific antigen measurement PSA Prostate Cancer Screening [facility] Start: 08-24-2013 SHINGRIX VACCINE (1 of 2) SHINGRIX VACCINE (1 of 2) [facility] Start: 08-24-2013 Tuberculosis screening COLORECTAL CANCER SCREENING,SEE MODIFIER [facility] Start: 03-10-2009 MMR Vaccines (1 of 1 - Standard series) MMR Vaccines (1 of 1 - Standard series) [facility] Start: 08-24-1982 Urine microalbumin profile DTAP,TDAP,TD (1 - Tdap) [facility] Start: 08-24-1981 ANNUAL PCP TEAM CHRONIC DISEASE VISIT ANNUAL PCP TEAM CHRONIC DISEASE VISIT [facility] Start: 08-24-1981 BP CONTROLLED (<130/80) BP CONTROLLED (<130/80) [facility] in Start: 08-24-1981 Diabetes: Urine Albumin-Creatinine Ratio for Kidney Health Diabetes: Urine Albumin-Creatinine Ratio for Kidney Health [facility] Start: 08-24-1981 Hepatitis B surface antibody level LDL CHOLESTEROL [facility] Start: 08-24-1981 HEPATITIS C SCREENING HEPATITIS C SCREENING [facility] Start: 08-24-1981 Hepatitis C screening Hepatitis C Screening [facility] Start: 08-24-1981 HIV SCREENING HIV SCREENING [facility] Start: 1975 Depression Screening Depression Screening [facility] Start: 08-24-1973 Diabetic foot examination Diabetes: Foot Exam [facility] Start: 08-24-1973 Glaucoma screening Diabetes: Retinopathy Screening [facility] Start: 08-24-1973 Hepatitis B screening URINE ALBUMIN:CREATININE RATIO [facility] Start: 08-24-1973 Hepatitis C antibody, confirmatory test DILATED RETINAL EXAM [facility] Start: 08-24-1973 Preventive dental service Diabetes: Dental Exam [facility] Start: 08-24-1964 MMR Vaccines (1 of 1 - Standard series) MMR Vaccines (1 of 1 - Standard series) [facility] Start: 1963 Creatinine measurement Creatinine Level [facility] Start: 1963 Echocardiography Echocardiogram [facility] Start: 1963 HIV screening HIV Screening [facility] Start: 1963 Potassium measurement Potassium Level [facility] Start: 1963 Screening for malignant neoplasm of colon [facility] Start: 1963 Skin Cancer Screening Skin Cancer Screening [facility] Start: 1963 Thyroid stimulating hormone measurement TSH Level [facility] Start: 1963 Yearly Adult Physical Yearly Adult Physical [facility] Aspergillus Galactom vicenta EIA (Non-Blood Specimen) [facility] Work Phone: Comment on above: Release Upon Ordering for 1 Occurrences starting 09/24/2024 Bacteria identified in Unspecified specimen by Respiratory culture Respiratory Culture/Smear Microbiology Routine ILD (interstitial lung disease) ([facility]) 09/24/2024 8:39 AM EDT [facility] Work Phone: CBC W Auto Different ial panel - Blood [facility] CBC W Auto Different ial panel - Blood [facility] End: 07-24-2024 Complete Pulmonary Function Test (Spirometry/DLCO/Lung Volumes) [facility] Service Area Work Phone: Comment on above: Once for 1 Occurrences starting 07/25/19 until 07/24/2024 DLCO / Diffusion Capacity DLCO / Diffusion Capacity PFT Routine ILD (interstitial lung disease) ([facility]) 08/18/2024 10:39 AM EDT [facility] Service Area Work Phone: DLCO / Diffusion Capacity DLCO / Diffusion Capacity PFT Routine ILD (interstitial lung disease) ([facility]) 01/15/2025 1:08 PM EDT [facility] Service Area Work Phone: ECG 12 lead ECG 12 lead CV E CG Routine 05/06/2024 9:00 AM EST [facility] Work Phone: Ferritin [Mass/volum e] in Serum or Plasma [facility] Ferritin [Mass/volum e] in Serum or Plasma [facility] Folate [Mass/volume] in Serum or Plasma [facility] Fungus identified in Unspecified specimen by Culture [facility] Work Phone: Comment on above: Release Upon Ordering for 1 Occurrences starting 09/24/2024 Hepatic function panel [facility] Hepatic function panel [facility] Hepatic function panel [facility] Histoplasma capsulat um Ag [Units/volume] in Serum by Immunoassay [facility] Work Phone: Comment on above: Release Upon Ordering for 1 Occurrences starting 09/24/2024 Iron and Iron bindin g capacity panel - Serum or Plasma [facility] Iron and Iron bindin g capacity panel - Serum or Plasma [facility] [place] and lambda lig ht chains [facility] Lactic acid measurement [facility] Legionella PCR Panel [facility] Work Phone: Comment on above: Release Upon Ordering for 1 Occurrences starting 09/24/2024 Lipid 1995 panel - S verna or Plasma [facility] Lipid 1995 panel - S verna or Plasma [facility] Lipid 1995 panel - S verna or Plasma [facility] Mycobacterium sp herrera ntified in Unspecified specimen by Organism specific culture [facility] Work Phone: Comment on above: Release Upon Ordering for 1 Occurrences starting 09/24/2024, 1 completed NM Heart Views W str ess and W radionuclide IV [facility] Work Phone: Non-gynecological cy tology method study [facility] Work Phone: Comment on above: Release Upon Ordering for 1 Occurrences starting 09/24/2024, 1 completed End: 09-24-2024 Pathologist review of results [facility] Work Phone: Comment on above: Once (Lab) for 1 Occurrences starting until 09/24/2024, 1 completed Patient Education [facility] Work Phone: Patient referral [facility] Work Phone: End: 07-24-2024 Pulmonary Stress Test (6 Min. Walk) [facility] Work Phone: Comment on above: Once [...] failure with hypoxia 01/15/2025 1:51 PM EDT [facility] Work Phone: Reticulocyte count [facility] Reticulocyte count [facility] Spirometry Pre/Post Bronchodilator Spirometry Pre/Post Bronchodilator PFT Routine ILD (interstitial lung disease) (Multi) 08/18/2024 11:36 AM EDT [facility] Work Phone: Spirometry Pre/Post Bronchodilator Spirometry Pre/Post Bronchodilator PFT Routine ILD (interstitial lung disease) (Multi) 01/15/2025 1:45 PM EDT [facility] Work Phone: Surgical pathology study [facility] Work Phone: Comment on above: Release Upon Ordering for 1 Occurrences starting 09/24/2024, 1 completed End: 09-24-2024 T-cell subsets CD4 and CD8 panel - Blood [facility] Work Phone: Comment on above: Release Upon Ordering for 1 Occurrences starting 09/24/2024 Once for 1 Occurrenc es starting 09/24/2024 until 09/24/2024 T4 free measurement [facility] T4 free measurement [facility] T4 free measurement [facility] Thiamine measurement [facility] Thyroid stimulating hormone measurement [facility] Thyroid stimulating hormone measurement [facility] Thyroid stimulating hormone measurement [facility] Troponin T.cardiac [Mass/volume] in Serum or Plasma by High sensitivity method [facility] Troponin T.cardiac [Mass/volume] in Serum or Plasma by High sensitivity method [facility] Troponin T.cardiac [Mass/volume] in Serum or Plasma by High sensitivity method [facility] US Carotid arteries [facility] Work Phone: US Carotid arteries [facility] US Carotid arteries [facility] End: 07-23-2024 US Heart Transthoracic [facility] Service Area Work Phone: Comment on above: Once for 1 Occurrences starting 07/24/19 25 until 07/23/2024 Vitamin B12 measurement [facility] Immunizations Immunization Date Immunization Notes Care Provider Lv sharla 01-13-2024 RSV Adult Recombinan t (Arexvy) Dr. Radha Khan MD Work Phone: [facility] 01-10-2024 influenza, seasonal, injectable, preservative free Dr. 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 [facility] 01-18-2023 influenza, injectabl e, quadrivalent, preservative free Oziel Culp MD Work Phone: [facility] 02-01-2022 zoster vaccine recombinant CHITO MEDLEYUnafinanceGABRIELA CORPORATE FINANCIAL ANALYST-MANUFACTURING PLANT CONTROLLER [facility] 01-26-2022 influenza virus vacc ine, unspecified formulation CHITO MEDLEYUnafinanceGABRIELA CORPORATE FINANCIAL ANALYST-MANUFACTURING PLANT CONTROLLER [facility] 01-26-2022 influenza, injectabl e, quadrivalent, contains preservative Oziel Culp MD Work Phone: [facility] 01-26-2022 influenza, injectabl e, quadrivalent, preservative free Dr. Radha Khan Work Phone: [facility] 01-26-2022 influenza, seasonal, injectable Dr. Radha Khan Work Phone: [facility] 01-16-2021 zoster vaccine recombinant CHITO MEDLEY-GABRIELA CORPORATE FINANCIAL ANALYST-MANUFACTURING PLANT CONTROLLER [facility] 01-06-2021 influenza virus vacc ine, unspecified formulation CHITOMATTHEW BUENROSTRO CORPORATE FINANCIAL ANALYST-MANUFACTURING PLANT CONTROLLER [facility] 01-06-2021 influenza, injectabl e, quadrivalent, contains preservative Oziel Culp MD Work Phone: [facility] 11-30-2020 influenza, injectabl e, quadrivalent, preservative free Dr. Radha Khan Work Phone: [facility] 11-30-2020 influenza, seasonal, injectable Dr. Radha Khan Work Phone: [facility] 07-08-2020 Covid (Moderna) Dr. Radha fuller Work Phone: [facility] 06-10-2020 Covid (Moderna) Dr. Radha fuller Work Phone: [facility] 01-27-2020 influenza virus vacc ine, unspecified formulation CHITO BUENROSTRO CORPORATE FINANCIAL ANALYST-MANUFACTURING PLANT CONTROLLER [facility] 01-27-2020 influenza, injectabl e, quadrivalent, contains preservative Oziel Culp MD Work Phone: [facility] 01-16-2019 influenza virus vacc ine, unspecified formulation CHITO BUENROSTRO CORPORATE FINANCIAL ANALYST-MANUFACTURING PLANT CONTROLLER [facility] 01-16-2019 influenza, injectabl e, quadrivalent, contains preservative Oziel Culp MD Work Phone: [facility] 01-21-2018 influenza virus vacc ine, unspecified formulation CHITO BUENROSTRO CORPORATE FINANCIAL ANALYST-MANUFACTURING PLANT CONTROLLER [facility] 01-21-2018 influenza, seasonal, injectable Oziel Culp MD Work Phone: [facility] 12-24-2017 influenza, injectabl e, quadrivalent, preservative free Dr. Radha Khan Work Phone: [facility] 12-24-2017 influenza, seasonal, injectable Dr. 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 PLANT CONTROLLER [facility] 12-09-2015 influenza, seasonal, injectable Oziel Culp MD Work Phone: [facility] 12-24-2014 influenza virus vacc ine, unspecified formulation CHITO BUENROSTRO CORPORATE FINANCIAL ANALYST-MANUFACTURING PLANT CONTROLLER [facility] 12-24-2014 influenza, seasonal, injectable Oziel Culp MD Work Phone: [facility] 12-06-2014 pneumococcal polysaccharide vaccine, 23 valent CHITO BUENROSTRO CORPORATE FINANCIAL ANALYST-MANUFACTURING [employer]ANT CONTROLLER [facility] 07-19-2014 tetanus toxoid, redu federica diphtheria toxoid, and acellular pertussis vaccine, adsorbed CIHTO BUENROSTRO CORPORATE FINANCIAL ANALYST-MANUFACTURING PLANT CONTROLLER [facility] 02-10-2014 influenza virus vacc ine, unspecified formulation CHITO BUENROSTRO CORPORATE FINANCIAL ANALYST-MANUFACTURING PLANT CONTROLLER [facility] 02-10-2014 influenza, seasonal, injectable Oziel Culp MD Work Phone: [facility] 02-10-2009 novel influenza-H1N1 -09, preservative-free, injectable Oziel Culp MD Work Phone: [facility] Payers Date Payer Category Payer [facility] Care (Private) [facility] Member Subscriber Plan / Payer (Effective 2024-Present) Name: Krunal Leos Relation to Subscriber: Self Name: Krunal Leos Payer ID: Not on file Type: Not on file Address: [place] [phone] 01-17-2024 Self-pay [id number] 07-31-2023 Commercial Managed C are - HMO [id number] 07-31-2023 Unknown [employer] M MO SUPERMED [id number] 07/31/2023-Present [address] [place] [address] Commercial [id number] 02-27-2023 Unknown [id number] 10-30-2014 Unknown [id number] 07-30-2009 Unknown THP [facility] THP HMO [id number] 07/30/2009-Present HMO [id number] 07-30-1996 Unknown THP [email or web address] THP HMO [id number] 07/30/1996-03/31/2015 HMO [id number]. [id number] 1963 Unknown [id number] 2.840.1.548918.3.579.2. 627 1963 Unknown [id number] 2.16.840.1.218191.3.579.2. 1242 1963 Unknown [id number] 2.16.840.1.775980.3.579.2. 1247 1963 Unknown [id number] 2.840.1.793108.3.579.2. 1243 1963 Unknown [id number] 2.16.840.1.647226.3.579.2. 1242 1963 Unknown [id number] 2.16.840.1.024504.3.579.2. 1244 1963 Unknown [id number] 2.16840.1.797318.3.579.2. 1244 1963 Unknown [id number] 2.16840.1.133058.3.579.2. 1244 1963 Unknown [id number] 2.16840.1.954757.3.579.2. 1244 1963 Unknown [id number] 2.840.1.550421.3.579.2. 1244 1963 Unknown [id number] 2.840.1.237118.3.579.2. 1244 1963 Unknown [id number] 2.0.1.040931.3.579.2. 1244 1963 Unknown [id number] 2.840.1.342066.3.579.2. 1244 1963 Unknown [id number] 2.0.1.911392.3.579.2. 1244 1963 Unknown [id number] 2.0.1.748512.3.579.2. 1244 1963 Unknown [id number] 2.840.1.758930.3.579.2. 1244 1963 Unknown [id number] 2.840.1.280008.3.579.2. 1244 1963 Unknown [id number] 2.840.1.864288.3.579.2. 124 Unknown [id number] Unknown [id number] 2.16840.1.238540.3.579.2. 462 Unknown [id number] 2.16.840.1.477872.3.579.2. 462 Unknown [id number] 2.16.840.1.764480.3.579.2. 462 Unknown [id number] 2.16.840.1.976047.3.579.2. 462 Unknown [id number] 2.16.840.1.480878.3.579.2. 462 Unknown [id number] 2.16.840.1.596637.3.579.2. 462 Unknown [id number] 2.16.840.1.723327.3.579.2. 462 Unknown [id number] 2.16.840.1.873841.3.579.2. 462 Unknown [id number] 2.16.840.1.096758.3.579.2. 462 Unknown [id number] 2.16.840.1.204451.3.579.2. 462 Unknown [id number] 2.16.840.1.435475.3.579.2. 462 Unknown [id number] 2.16.840.1.734822.3.579.2. 462 Unknown [id number] 2.16.840.1.441958.3.579.2. 462 Unknown [id number] 2.16.840.1.868698.3.579.2. 462 Unknown [id number] 2.16.840.1.113205.3.579.2. 462 Unknown [id number] 2.16.840.1.438476.3.579.2. 462 Unknown [id number] 2.16.840.1.036167.3.579.2. 462 Unknown [id number] 2.16.840.1.562280.3.579.2. 462 Unknown [id number] 2.16.840.1.492268.3.579.2. 462 Unknown [id number] 2.16.840.1.604120.3.579.2. 462 Unknown [id number] 2.16.840.1.965679.3.579.2. 462 Unknown [id number] 2.16840.1.213728.3.579.2. 462 Unknown [id number] 2.16.840.1.167141.3.579.2. 462 Unknown [id number] 2.840.1.694772.3.579.2. 462 Unknown [id number] 2.840.1.732579.3.579.2. 462 Unknown [id number] 2.840.1.728742.3.579.2. 462 Unknown [id number] 2.840.1.680862.3.579.2. 462 Unknown [id number] 2.840.1.910558.3.579.2. 462 Unknown [id number] 2.840.1.576889.3.579.2. 462 Unknown [id number] 2.840.1.226771.3.579.2. 462 Unknown [id number] 2.840.1.086165.3.579.2. 462 Unknown [id number] 2.840.1.314389.3.579.2. 462 Unknown [id number] 2.840.1.931771.3.579.2. 462 Unknown [id number] 2.840.1.208220.3.579.2. 462 Unknown [id number] 2.840.1.574027.3.579.2. 462 Unknown [id number] 2.840.1.284394.3.579.2. 462 Unknown [id number] 2.840.1.794784.3.579.2. 462 Unknown [id number] 2.840.1.620080.3.579.2. 462 Unknown [id number] 2.16.840.1.451725.3.579.2. 462 Unknown [id number] 2.16.840.1.020453.3.579.2. 462 Unknown [id number] 2.16.840.1.808144.3.579.2. 462 Unknown [id number] 2.16.840.1.505943.3.579.2. 462 Unknown [id number] 2.16.840.1.353429.3.579.2. 462 Unknown [id number] 2.16.840.1.519116.3.579.2. 462 Unknown [id number] 2.16.840.1.310057.3.579.2. 462 Unknown [id number] 2.16.840.1.041948.3.579.2. 462 Unknown [id number] 2.840.1.915959.3.579.2. 462 Unknown [id number] 2.16.840.1.838724.3.579.2. 462 Unknown [id number] 2.16.840.1.281556.3.579.2. 462 Unknown [id number] 2.16.840.1.389307.3.579.2. 462 Unknown [id number] 2.16.840.1.550969.3.579.2. 462 Unknown [id number] 2.16.840.1.007384.3.579.2. 462 Unknown [id number] 2.16.840.1.888624.3.579.2. 462 Unknown [id number] 2.16.840.1.433279.3.579.2. 462 Unknown [id number] 2.16.840.1.288737.3.579.2. 462 Unknown [id number] 2.16.840.1.980911.3.579.2. 462 Unknown [id number] 2.16.840.1.010713.3.579.2. 462 Unknown [id number] 2.840.1.987985.3.579.2. 462 Unknown [id number] 2.840.1.272260.3.579.2. 462 Unknown [id number] 2.840.1.963041.3.579.2. 462 Unknown [id number] 2.840.1.844938.3.579.2. 462 Unknown [id number] 2.840.1.848401.3.579.2. 462 Unknown [id number] 2.840.1.949254.3.579.2. 462 Unknown [id number] 2.840.1.802139.3.579.2. 462 Unknown [id number] 2.840.1.901241.3.579.2. 462 Unknown [id number] 2.840.1.934769.3.579.2. 462 Unknown [id number] 2.840.1.593693.3.579.2. 462 Unknown [id number] 2.840.1.265647.3.579.2. 462 Unknown [id number] 2.840.1.364473.3.579.2. 462 Unknown [id number] 2.840.1.216962.3.579.2. 462 Unknown [id number] 2.840.1.769343.3.579.2. 462 Unknown [id number] 2.840.1.259599.3.579.2. 462 Unknown [id number] 2.840.1.735330.3.579.2. 462 Unknown [id number] 2.840.1.006557.3.579.2. 462 Unknown [id number] 2.840.1.016799.3.579.2. 462 Unknown [id number] 2.840.1.245793.3.579.2. 462 Unknown [id number] 2.16840.1.684654.3.579.2. 462 Unknown [id number] 2.16.840.1.690825.3.579.2. 462 Unknown [id number] 2.16.840.1.367904.3.579.2. 462 Unknown [id number] 2.16840.1.141798.3.579.2. 462 Unknown [id number] 2.16.840.1.209951.3.579.2. 462 Unknown [id number] 2.16840.1.573504.3.579.2. 462 Unknown [id number] 2.840.1.591969.3.579.2. 462 Social History Date Type Detail Facility Start: 06-14-2007 End: 01-06-2024 Tobacco smoking status TXIS Never smoker [facility] Start: 06-14-2007 Alcohol intake Not Asked [facility] Start: 1965 Sex Assigned At Not on file [facility] Start: 07-16-2021 End: 07-17-2023 Tobacco smoking status [facility] Unknown if ever smoked [facility] Start: 03-28-2020 None [facility] Start: 03-28-2020 Spouse/ Significant Other [facility] Start: 04-20-2018 Non-smoker [facility] Start: 1965 Sex Assigned At Male [facility] Start: 10-03-2023 Gender identity Identifies as male gender (finding) [facility] Start: 01-06-2024 End: 01-18-2025 Sexual orientation Not on file [facility] Start: 01-06-2024 Tobacco use and exposure Smokeless tobacco non-user [facility] Start: 01-06-2024 End: 01-18-2025 Alcoholic beverage intake Ex-drinker (finding) [facility] Start: 01-06-2024 End: 01-18-2025 History of Social function [facility] Start: 10-03-2023 End: 02-14-2025 Sex Male (finding) [facility] Start: 06-26-2024 End: 01-15-2025 Alcoholic beverage intake Lifetime non-drinker (finding) [facility] Work Phone: Start: 05-22-2024 Sexual orientation Heterosexual (finding) [facility] Work Phone: Start: 06-16-2024 End: 08-28-2024 Exposure to SARS-CoV-2 (event) Not sure [facility] How often to you hav e a drink containing alcohol? Never [facility] Work Phone: Start: 05-15-2024 How many standard drinks containing alcohol do you have on a typical day? Patient does not drink [facility] Work Phone: Medical Equipment Procedure Code Equipment Code Equipment Origin al Text Equipment Identifier Dates Colonoscopy [id number] FDA Start: 03-27-2024 Stent Inlay Opti ma 7fr Taper [facility] Green Phreecoat Polymer 28cm 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 5fr Gry - [id number] Start: 05-06-2024 Pen Needle, Diab etic [...] 1:55 PM EDT Suly Johnston MA 89/45 [facility] Work Phone: 01-15-2025 Vital signs 82 01/15/2025 1: 55 PM EDT Suly Johnston MA [facility] Work Phone: 01-15-2025 Functional status [facility] 01-15-2025 [facility] Work Phone: 11-28-2024 Functional status Ambulates [facility] Work Phone: 11-13-2024 Functional status 114/69 025 1:01 PM EDT Suly Johnston MA 114/69 [facility] Work Phone: 11-13-2024 Vital signs 74 11/13/2024 1: 01 PM EDT Suly Johnston MA [facility] Work Phone: 09-28-2024 Functional status Chair [facility] Work Phone: 09-24-2024 [facility] 09-24-2024 [place] - suicide severity rating scale screener - recent [C-SSRS] [facility] Work Phone: 09-24-2024 [facility] Work Phone: 09-24-2024 Functional status [facility] 08-07-2024 Total score [AUDIT-C] 0 08/08/19 25 2:09 PM EDT Rivka Gerardo MA [facility] Work Phone: 04-25-2024 Functional status Ambulates [facility] Work Phone: 04-15-2024 Functional status Ambulates;Chair [facility] Work Phone: 10-03-2023 Functional Status Room check performed [facility] 10-03-2023 Functional Status Jarred Peterson [facility] 10-03-2023 Functional Status Jarred Nicholas [facility] 10-03-2023 Functional Status bilateral knee high removed/off [facility] 10-02-2023 Functional Status Jarred Nicholas [facility] 10-02-2023 Functional Status Demonstrates C orrect Call Light Use Yes [facility] 10-02-2023 Functional Status [facility] 10-02-2023 Functional Status Single level home [facility] 10-02-2023 Functional Status [facility] 08-03-[facility]22 Functional status Ambulates [facility] Work Phone: 06-20-2021 Functional status Up ad harini [facility] Work Phone: [facility] Work Phone: Mental Status Date Assessment Result Facility 12-23-2024 Cognitive function Voice/Name [facility] Work Phone: 12-17-2024 Cognitive function Awake [facility] Work Phone: 12-10-2024 Cognitive function Awake;Alert;A ppropriate;Fo [facility] Work Phone: 11-28-2024 Cognitive function Voice/Name [facility] Work Phone: 11-26-2024 Cognitive function Awake;Alert;A ppropriate;Fo [facility] Commands [facility] Work Phone: 09-28-2024 Cognitive function Voice/Name [facility] Work Phone: 09-26-2024 Cognitive function Voice/Name [facility] Work Phone: 04-25-2024 Cognitive function Voice/Name [facility] Work Phone: 04-15-2024 Cognitive function Voice/Name [facility] Work Phone: 10-03-2023 Mental Status Oriented x 4 [facility] 10-02-2023 Mental Status [facility] 10-02-2023 Mental Status [facility] 02-18-2023 Cognitive function Voice/Name [facility] Work Phone: 08-03-2022 Cognitive function Awake;Alert;A ppropriate;Fo llows Commands;Responds to vocal stimuli [facility] Work Phone: 08-03-2022 Cognitive function Voice/Name [facility] Work Phone: 06-20-2021 Cognitive function Appropriate;Cooperativ e [facility] Work Phone: Clinical Notes 08-02-2022 to 01-18-2025 [...] for left hemiparesis and was transferred to [facility] from [facility]. He was found to have [...] episode of left hemiparesis. He went to [facility] and was found to have increased stroke burden of the right hemisphere. Vascular surgery was consulted and no surgical procedure was recommended. He had a 3rd event of left hemiparesis the following week and a CT was done at [place] [facility]. At that time clopidogrel was added (in addition to ASA and Eliquis). The patient returned to normal and was discharged from the ED to home. 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 He is a nonsmoker. 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 He has since been restarted on the medications. He has been diagnosed to have idiopathic pulmonary fibrosis, and is now on 4L oxygen at home. He also has weekly events of left face droop and confusion that has prompted trips to [place] [facility] and been diagnosed as "TIA". These [...] Rfl: 0 ergocalciferol (Vitamin D2) 1.25 MG (15144 UT) capsule, Take 1 capsule by mouth [...] reviewed with patient: Angiogram, CTA, MRI from [place]. Impression/Plan: 59 yo man with recurrent right [...] cessation counseling: Yes documented in this encounter [facility] 01-15-2025 History of Presen t illness Narrative Images from the original note were not included. Department of Medicine Division of Pulmonary, Critical Care, and Sleep Medicine Consultation [address] [facility] Patient was referred by his PCP (Dr. [...] surgery total pulmonary decortication in 2015 at [facility]. He was hospitalized in [place] from 03/02-03/04/2024 for acute hypoxic respiratory failure. [...] Review Audit Reviewed by Suly Johnston MA (Health And Social Care Teacher) on 01/15/25 at 1358 Medication Order Taking? Sig Documenting Provider Last Dose Status acetaminophen (Tylenol) 500 mg tablet [id number] Yes 2 tablets (1,000 mg). Historical Provider, Active albuterol 2.5 mg /3 mL (0.083 %) nebulizer solution [id number] Take 3 mL (2.5 mg) by nebulization every 4 hours if needed for wheezing or shortness of breath. Rosalino Padron MD Active albuterol 90 mcg/actuation inhaler [id number] INHALE 2 PUFFS BY MOUTH EVERY 4 HOURS NEEDED FOR SHORTNESS OF BREATH OR WHEEZING Historical ProviderMD Active ALPRAZolam (Xanax) 0.25 mg tablet [id number] Yes TAKE 1 tablet by mouth two times daily, as needed Historical ProviderMD Active amLODIPine (Norvasc) 5 mg tablet [id number] Take 1 tablet (5 mg) by mouth once daily. Historical ProviderMD Active aspirin 325 mg tablet [id number] Take 1 tablet (325 mg) by mouth once daily. Historical ProviderMD Active atorvastatin (Lipitor) 80 mg tablet [id number] Take 1 tablet (80 mg) by mouth once daily at bedtime. Historical ProviderMD Active betamethasone, augmented, (Diprolene) 0.05 % lotion [id number] Historical ProviderMD Active bismuth subsalicylate (Pepto Bismol) 262 mg chewable tablet [id number] Historical ProviderMD Active Brilinta 90 mg tablet [id number] 1 tablet (90 mg). Historical ProviderMD Active busPIRone (Buspar) 10 mg tablet [id number] Take 1 tablet (10 mg) by mouth 3 times a day. Historical ProviderMD Active cephalexin (Keflex) 500 mg capsule [id number] Yes Take 1 capsule (500 mg) by mouth 3 times a day. Historical ProviderMD Active clopidogrel (Plavix) 75 mg tablet [id number] Take 1 tablet (75 mg) by mouth early in the morning.. Historical ProviderMD Active dapagliflozin propanediol (Farxiga) 5 mg [id number] Take 1 tablet (5 mg) by mouth once daily. Historical ProviderMD Active Dexcom G6 Sensor device [id number] USE DIRECTED FOR CONTINUOUS BLOOD GLUCOSE MONITORING, CHANGE SENSOR EVERY 10 DAYS Historical ProviderMD Active doxycycline (Adoxa) 100 mg tablet [id number] Yes Take 1 tablet (100 mg) by mouth every 12 hours. Historical ProviderMD Active DULoxetine (Cymbalta) [address] capsule [id number] Take 1 capsule (60 mg) by mouth once daily. Gloria Rahman MD Active DULoxetine [address] capsule [id number] Yes Take 2 capsules (80 mg) by mouth early in the morning.. Historical ProviderMD Active Eliquis 5 mg tablet [id number] Take 1 tablet (5 mg) by mouth 2 times a day. Historical ProviderMD Active ergocalciferol (Vitamin D-2) 1250 mcg (50,000 units) capsule [id number] Take 1 capsule (1.25 mg) by mouth. Historical ProviderMD Active fenofibrate (Tricor) 54 mg tablet [id number] Take 1 tablet (54 mg) by mouth once daily. Historical MD Lacey Active fenofibrate micronized (Lofibra) 134 mg capsule [id number] Take 1 capsule (134 mg) by mouth early in the morning.. Historical ProviderMD Active ferrous sulfate 325 mg (65 mg elemental) tablet [id number] Yes 1 tablet. Historical ProviderMD Active furosemide (Lasix) 40 mg tablet [id number] Take 1 tablet (40 mg) by mouth. Historical ProviderMD Active glimepiride (Amaryl) 4 mg tablet [id number] Take 1 tablet (4 mg) by mouth early in the morning.. Historical ProviderMD Active glipiZIDE (Glucotrol) 5 mg tablet [id number] Take 1 tablet (5 mg) by mouth. Historical ProviderMD Active HumuLIN R U-500, Conc, Insulin 500 unit/mL CONCENTRATED injection [id number] Historical ProviderMD Active ipratropium (Atrovent) 42 mcg (0.06 %) nasal spray [id number] USE 2 SPRAYS NASALLY 3 TIMES A DAY NEEDED Historical ProviderMD Active Jardiance 25 mg [id number] Take 1 tablet (25 mg) by mouth once daily. Historical ProviderMD Active levothyroxine (Synthroid, Levoxyl) 112 mcg tablet [id number] Take 1 tablet (112 mcg) by mouth once daily. Patient not taking: Reported on 11/13/2024 Historical MD Lacey Active levothyroxine (Synthroid, Levoxyl) 125 mcg tablet [id number] Take 1 tablet (125 mcg) by mouth early in the morning.. Take on an empty stomach at the same time each day, either 30 to 60 minutes prior to breakfast Historical ProviderMD Active lisinopril 40 mg tablet [id number] Take 1 tablet (40 mg) by mouth once daily. Historical ProviderMD Active metFORMIN (Glucophage) 500 mg tablet [id number] Take 1 tablet (500 mg) by mouth 2 times daily (morning and late afternoon). Gloria Rahman MD Active metoprolol succinate XL (Toprol-XL) 100 mg 24 hr tablet [id number] TAKE 1 TABLET BY MOUTH DAILY for heart Historical ProviderMD Active Mucinex DM 60-1,200 mg tablet extended release 12 hr [id number] Take 1 tablet by mouth every 12 hours. Gloria Rahman MD Active nitrofurantoin, macrocrystal-monohydrate, (Macrobid) 100 mg capsule [id number] Yes Take 1 capsule (100 mg) by mouth every 12 hours. Gloria Rahman MD Active Nystop 100,000 unit/gram powder [id number] Yes APPLY 1 GRAM TOPICALLY TWICE DAILY NEEDED Gloria Rahman MD Active oxyBUTYnin (Ditropan) 5 mg tablet [id number] Yes Take 1 tablet (5 mg) by mouth every 12 hours. Gloria Rahman MD Active oxyCODONE-acetaminophen (Percocet) 5-325 mg tablet [id number] Take 1 tablet by mouth 2 times a day as needed. Gloria Rahman MD Active pantoprazole (ProtoNix) 40 mg EC tablet [id number] Take 1 tablet (40 mg) by mouth. Gloria Rahman MD Active pirfenidone (Esbriet) 267 mg tablet tablet [id number] Take 1 tablet (267 mg) by mouth 3 times a day for 7 days, THEN 2 tablets (534 mg) 3 times a day for 7 days, THEN 3 tablets (801 mg) 3 times a day. Rosalino Padron MD 12/30/24 2359 pirfenidone (Esbriet) 267 mg tablet tablet [id number] Take 3 tablets (801 mg) by mouth 3 times a day. Rosalino Padron MD Active potassium citrate CR (Urocit-K-10) 10 mEq ER tablet [id number] Take 1 tablet (10 mEq) by mouth twice a day. Gloria Rahman MD Active predniSONE (Deltasone) 10 mg tablet [id number] Yes TAKE 4 TABLETS BY MOUTH FOR 1 DAY, THEN 3 TABS FOR 3 DAYS, THEN 2 TABS FOR 3 DAYS, THEN RESUME YOUR NORMAL 15MG DAILY DOSING Gloria Rahman MD Active predniSONE (Deltasone) 20 mg tablet [id number] Take 0.5 tablets (10 mg) by mouth early in the morning.. Patient not taking: Reported on 11/13/2024 Gloria Rahman MD Active predniSONE (Deltasone) 20 mg tablet [id number] Take 2 tablets (40 mg) by mouth once daily. Rosalino Padron MD Active predniSONE (Deltasone) 5 mg tablet [id number] Take 4 tablets (20 mg) by mouth once daily for 30 days, THEN 3 tablets (15 mg) once daily for 30 days, THEN 2 tablets (10 mg) once daily for 30 days, THEN 1 tablet (5 mg) once daily for 14 days. Rosalino Padron MD Active rosuvastatin (Crestor) 40 mg tablet [id number] Take 1 tablet (40 mg) by mouth early in the morning.. Historical ProviderMD Active sennosides-docusate sodium (Daysi-Colace) 8.6-50 mg tablet [id number] Yes docusate sodium 50 mg / sennosides, fpc 8.6 mg oral tablet (3 sources) Start: 12-17-2024 Historical ProviderMD Active spironolactone (Aldactone) 50 mg tablet [id number] Take 1 tablet (50 mg) by mouth once daily. Historical ProviderMD Active tamsulosin (Flomax) 0.4 mg 24 hr capsule [id number] Take 1 capsule (0.4 mg) by mouth once daily. Historical ProviderMD Active traMADol (Ultram) 50 mg tablet [id number] Take 1 tablet (50 mg) by mouth. [...] Padron MD 01/15/2025 documented in this encounter [facility] Work Phone: 01-15-2025 Instructions Rosalino Padron [...] a breathing or a walking test Call [phone] to schedule EKG's, Echocardiograms and Cardiopulmonary Stress Tests. Call [phone] to schedule Radiology tests such as Nuclear Medicine Stress Tests, CT Scans, and MRI's. Should you have any questions Please Call our pulmonary nurse Linda Marie at [phone] or my catalog library assistant Puneet Leone at [phone] documented in this encounter [facility] Work Phone: 01-07-2025 Telephone encounter Note Lvm to speak with patient about medication. Left call back. [facility] 01-07-2025 Miscellaneous Notes Lvm to speak with [...] No answer LVM documented in this encounter [facility] 12-31-2024 Telephone encounter Note I am happy to change order when they get back to you [facility] 12-31-2024 Miscellaneous Notes I am happy to change order when they get back to you Returning call to patient. They said that their insurance will stop paying for Brilinta January 30 2025. I called to see if they knew if they will cover the generic version or not. No answer LVM documented in this encounter [facility] 12-23-2024 Radiology Diagnostic study note [facility] 12-23-2024 Discharge summary Note Date/Time December 24, 2024 12:32am [facility] Medical Records Department [address] [place] [address] Emergency Department Summary 12/23/24 MR#: [id number] Acct: [id number] Name: KRUNAL LEOS Rep #:[id number] : [...] consistent with TIA he presents for evaluation [facility] Medical History (Updated 12/24/24 @ 06:[address] Juan Diego Davis DO) Current use of termite treater helper anticoagulation Chronic respiratory failure with hypoxia Paroxysmal [...] of 45.0-49.9, adult Atherosclerotic heart disease of [place] coronary artery without angina pectoris Mini stroke [...] depres wanda 04/17/18 09/26/24 History release (Cymbalta) blood-glucose,participant administrator,cont #1 ea 07/26/20 Unknown Rx (Dexcom G6 On Site Nurse) blood-glucose transmitter (Dexcom #1 ea 12/29/21 Unkno [...] 2.5 mg/3 mL 2.5 mg inhalation Q4H ND N 11/25/24 Unknown History (0.083 %) solution [...] (Auto) 68.6 Lymph % (Auto) 16.1 L [place] % (Auto) 10.4 H Eos % (Auto) [...] Clarity Turbid Urine pH 6.0 Ur Specific Mertens 1.015 Urine Protein 30 H Urine Glucose [...] and ancillary findings as above. Reading Location: [id number] Discharge Plan Triage Chief Complaint: Neuro S/Sx ED Provider: Juan Diego Davis Dx/Rx/DC Orders Clinical Impression: TIA (transient ischemic attack), UTI (urinary tract infection), Current use of termite treater helper anticoagulation, Diabetes mellitus, type II, Hypothyroidism, Idiopathic pulmonary fibrosis Instructions: Urinary Tract Infections in Men, TIA Dc Prescriptions: New cephalexin 500 mg capsule 500 mg PO TID 7 Days Qty: 21 0RF No Action (DME) Dexcom G6 On Site Nurse Misc See Rx Instructions .ROUTE .MEDSUPPLY Qty: [...] the ER for repeat evaluation. Print Language: Bermudian Disposition Disposition: Home, Self Care Discharge Date/Time: 12/24/24 00:32 What to do if you have Problems For any increased pain, shortness of breath, bleeding, nausea or vomiting, chestpain, or any unexpected problems, contact your Primary Care Provider. Call [facility] ([phone]) or report to the closest Emergency Room. Call 911 if necessary. 12/24/24 0601 <Electronically signed by Juan Diego Davis DO> Cosigner Signature (if applicable): CC: Dr. Brandt Winter MD ~ Signed [facility] Work Phone: 1(121) 901-576809-19-2025 History and physical note Author Marjorie Hernandez [facility] Note Date/Time December 18, 2024 5:21pm [facility] [address] [place] [address] H&P Exam - Wound Care 12/17/24 1216 MR#: [id number] Acct: [id number] Name: KRUNAL LEOS Rep #:[id number] : [...] fever or changes in bowel habit reported. [facility] Medical History (Updated 12/17/24 @ 21:[address] 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 of termite treater helper anticoagulation Chronic respiratory failure with hypoxia Paroxysmal [...] of 45.0-49.9, adult Atherosclerotic heart disease of [place] coronary artery without angina pectoris Mini stroke [...] depres wanda 04/17/18 09/26/24 History release (Cymbalta) blood-glucose,participant administrator,cont #1 ea 07/26/20 Unknown Rx (Dexcom G6 On Site Nurse) blood-glucose transmitter (Dexcom #1 ea 12/29/21 Unkno [...] 2.5 mg/3 mL 2.5 mg inhalation Q4H ND N 11/25/24 Unknown History (0.083 %) solution [...] Date Recorded By Document 12/17/24 10:33 [place] [id number] 12/17/24 10:36 [place] 12/17/24 10:33 - Today's [...] when due,Inactivity/ Resting Communication Assessment Preferred language Bermudian Milk Inspector Required No Able to Read Yes Able [...] in Ability to Perform Denies Any Declines Culture/Pentecostalism/Activities Attendant Cultural/Pentecostalism Needs that may affect No Treatment Plan Would you allow our hospital wrist closer to No meet you for the purpose of spiritual/ emotional support? Activities Attendant to contact place of yazdanism No WC - Nurse 1 - General Ulcer Measurement Start: 12/17/24 10:22 Freq: Status: Active Protocol: Activity Type Activity Date Activity User E-sign Co-sign Detail Recorded Client Recorded Date Recorded By Document 12/17/24 10:33 [id number] 12/17/24 10:36 12/17/24 10:33 Wound Center Nurse [...] Recorded Date Recorded By Document 12/17/24 11:14 [id number] 12/17/24 11:21 12/17/24 11:14 Wound Center Nurse [...] Date Recorded By Document 12/17/24 11:38 RB [id number] 12/17/24 11:40 RB 12/17/24 11:38 Wound Care [...] Charges/Coding Visit Charges Office Visits / Consults: 16175 OV L3 Est 20min Procedures Integumentary 111xxx-113xx: 92330 Gillian subq tissue 20 sq cm/< Assessment/Plan Assessment/Plan (1) Chronic ulcer of thigh with fat layer exposed: CODE(S): L97.102 - 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 (2) Diabetes mellitus, type II: CODE(S): E11.9 - 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 without complications QUALIFIERS: Diabetes mellitus complication status: with unspecified complications Diabetes mellitus termite treater helper insulin use: without group home use Qualified Code(s): E11.8 - 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 with unspecified complications (3) Paroxysmal atrial fibrillation: CODE(S): I48.0 - Paroxysmal atrial fibrillation (4) Chronic respiratory failure: CODE(S): J96.10 - Chronic respiratory failure, unspecified whether with hypoxia or hypercapnia (5) Chronic respiratory failure with hypoxia: CODE(S): J96.11 - Chronic respiratory failure with hypoxia (6) Current use of group home anticoagulation: CODE(S): Z79.01 - intermodal customer service (current) use of anticoagulants PLAN: Plan Debridement [...] if needed. This note was generated with fl3ur dictation software. It may contain incorrectwords, spelling, and punctuation that were not noted in checking the note beforesigning. 12/18/24 1721 <Electronically signed by Marjorie Hernandez MD> Cosigner Signature (if applicable): CC: ~ Signed [facility] Work Phone: 1(434) 893-111209-12-2025 Telephone encounter Note* Telephone Encounter - Kandice Curran RN - 12/11/2024 3:02 PM EDT Returning call to patient. They said that their insurance will stop paying for Brilinta January 30 2025. I called to see if they knew if they will cover the generic version or not. No answer LVM [facility] [id number] Discharge summary Author Ochoa Johnson [facility] Note Date/Time November 28, 2024 1: 01pm [facility] Medical Records Department [address] [place] [address] Discharge Summary 11/28/24 1250 MR#: [id number] Acct: [id number] Name: KRUNAL LEOS Rep #:[id number] : 1965 59 From: Ochoa Johnson DO PCP: Dr. Brandt Winter MD Status:ADM IN Location: [place] [id number] Providers Date of Admission: 11/26/24 Primary Care Physician: Brandt Winter MD Consultations 11/26/24 13:21 Consult: Onc/Wound/pmo analyst Routine Comment: 11/26/24 13:34 Consult: Onc/Wound/pmo analyst Routine Comment: Reason for Consult:: boil oped [...] this time. Patient to follow-up with his senior investment manager as outpatient. Patient takes pirfenidone for his [...] (Cymbalta) 60 mg PO DAILY depression 04/17/18 blood-glucose,participant administrator,cont (Dexcom G6 On Site Nurse) #1 ea 07/26/20 blood-glucose transmitter (Dexcom G6 [...] (Auto) 78.0 H, Lymph %(Auto) 11.2 L, [place] % (Auto) 7.9, Eos % (Auto) 1.7, [...] Qty: 15 0RF Continued (DME) Dexcom G6 On Site Nurse Misc See Rx Instructions .ROUTE .MEDSUPPLY Qty: [...] Self Care Charges/Coding Visit Charges Inpatient E&M: 71646 Disch Hosp >30min 11/28/24 1301 <Electronically signed by Ochoa Johnson DO> Cosigner Signature (if applicable): CC: Dr. Brandt Winter MD; Dr. Ochoa Johnson DO~ Signed [facility] Work Phone: 1(853) 750-788008-30-2025 Progress note Author Ochoa Johnson [facility] Note Date/Time November 28, 2024 12 :50pm [facility] Medical Records Department [address] [place] [address] Progress Note - Hospitalist 11/28/24 0943 MR#: [id number] Acct: [id number] Name: KRUNAL LEOS Rep #:[id number] : 1965 59 From: Ochoa Johnson DO PCP: Dr. Brandt Winter MD Status:ADM IN Location: [place] [address] Reason for Visit Chief Complaint: Weakness Subjective [...] this time. Patient to follow-up with his senior investment manager as outpatient. Patient takes pirfenidone for his [...] Cosigner Signature (if applicable): CC: ~ Signed [facility] Work Phone: 1(249) 984-865508-30-2025 [facility]08-30-2025 Consult note Author Ochoa Faust [facility] Note Date/Time November 28, 2024 12 :51am [facility] Medical Records Department [address] [facility] [place] [address] Pharmacokinetic/Renal -Consult 11/28/24 0049 MR#: [id number] Acct: [id number] Name: DAFNEKRUNAL YOON Rep #:[id number] : 1965 59 From: Ochoa Faust PCP: Dr. Brandt Winter MD Status:ADM IN Y Location: [place] [address] Consult Antibiotic Management Pharmacy has been consulted [...] Signature (if applicable): Date CC: ~ Signed [facility] Work Phone: 1(532) 517-407808-29-2025 Progress note Author Ochoa Johnson [facility] Note Date/Time November 27, 2024 12 :01pm [facility] Medical Records Department [address] [place] [address] Progress Note - Hospitalist 11/27/24822 MR#: [id number] Acct: [id number] Name: KRUNAL LEOS Rep #:[id number] : 1965 59 From: Ochoa Johnson DO PCP: Dr. Brandt Winter MD Status:ADM IN Location: [place] [address] Reason for Visit Chief Complaint: Weakness Subjective [...] (Auto) 76.5 H, Lymph% (Auto) 8.9 L, [place] % (Auto) 12.8 H, Eos % (Auto) [...] Clarity Clear, Urine pH 6.0, Ur Specific Mertens 1.015, Urine Protein 15 H, Urine Glucose [...] (Auto) 74.4 H, Lymph %(Auto) 13.0 L, [place] % (Auto) 10.3 H, Eos % (Auto) [...] no visible acute traumatic injury. Reading Location: [facility] Cervical Spine CT 11/26/24 09:38 IMPRESSION: DEGENERATIVE CHANGES OF THE CERVICAL SPINE. NO EVIDENCE OF SIGNIFICANT OSSEOUS CENTRAL CANAL OR NEURAL FORAMINAL STENOSIS. Reading Location: [id number] Chest X-Ray 11/26/24 09:38 IMPRESSION: Examination limited [...] acute osseous process is identified. Reading Location: [facility] Pelvis X-Ray 11/26/24 09:38 IMPRESSION: Degenerative [...] out a currently occult fracture. Reading Location: [facility] Physical Exam Const alert and no [...] this time. Patient to follow-up with his senior investment manager as outpatient. Patient takes pirfenidone for his [...] be determined. Charges/Coding Visit Charges Inpatient E&M: 18848 Subs Hosp L2 11/27/24 1201 <Electronically signed by Ochoa Johnson DO> Cosigner Signature (if applicable): CC: ~ Signed [facility] Work Phone: 1(980) 840-445308-28-2025 Consult note Author Pravin Jaime [facility] Note Date/Time November 26, 2024 3: 17pm [facility] Medical Records Department [address] [place] [address] Pharmacokinetic/Renal -Consult 11/26/24 1342 MR#: [id number] Acct: [id number] Name: KRUNAL LEOS Rep #:[id number] : 1965 59 From: Pravin Jaime PCP: Dr. Brandt Winter MD Status:ADM IN Y Location: [place] [address] Consult Antibiotic Management Pharmacy has been consulted [...] Date Ochoa Johnson DO CC: ~ Signed [facility] Work Phone: 1(395) 668-630008-28-2025 History and physical note Author Ochoa Johnson [facility] Note Date/Time November 26, 2024 12 :33pm [facility] Medical Records Department [address] [place] [address] H&P Exam - Hospitalist 11/26/24 1209 MR#: [id number] Acct: [id number] Name: KRUNAL LEOS Rep #:[id number] : [...] fluids as well as vancomycin and Zosyn. 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 Morbid obesity with BMI of 45.0-49.9, adult Atherosclerotic heart disease of [place] coronary artery without angina pectoris Mini stroke [...] depres wanda 04/17/18 09/26/24 History release (Cymbalta) blood-glucose,participant administrator,cont #1 ea 07/26/20 Unknown Rx (Dexcom G6 On Site Nurse) blood-glucose transmitter (Dexcom #1 ea 12/29/21 Unkno [...] 2.5 mg/3 mL 2.5 mg inhalation Q4H ND N 11/25/24 Unknown History (0.083 %) solution [...] (Auto) 76.5 H, Lymph% (Auto) 8.9 L, [place] % (Auto) 12.8 H, Eos % (Auto) [...] Clarity Clear, Urine pH 6.0, Ur Specific Mertens 1.015, Urine Protein 15 H, Urine Glucose [...] no visible acute traumatic injury. Reading Location: [facility] Cervical Spine CT 11/26/24 09:38 IMPRESSION: DEGENERATIVE CHANGES OF THE CERVICAL SPINE. NO EVIDENCE OF SIGNIFICANT OSSEOUS CENTRAL CANAL OR NEURAL FORAMINAL STENOSIS. Reading Location: [id number] Chest X-Ray 11/26/24 09:38 IMPRESSION: Examination limited [...] acute osseous process is identified. Reading Location: [facility] Pelvis X-Ray 11/26/24 09:38 IMPRESSION: Degenerative [...] out a currently occult fracture. Reading Location: [facility] Assessment & Plan Assessment/Plan (1) Sepsis: [...] this time. Patient to follow-up with his senior investment manager as outpatient. Patient takes pirfenidone for his [...] does so. Charges/Coding Visit Charges Inpatient E&M: 33520 Init Hosp L3 11/26/24 1233 <Electronically signed by Ochoa Johnson DO> Cosigner Signature (if applicable): CC: Dr. Brandt Winter MD; Dr. Ochoa Johnson DO; Rosalino Padron~ Signed [facility] Work Phone: 1(665) [phone] Discharge summary Author Betina Martinez [facility] Note Date/Time November 26, 2024 12 :18pm [facility] Medical Records Department [address] [place] [address] Emergency Department Summary 11/26/24 MR#: [id number] Acct: [id number] Name: KRUNAL LEOS Rep #:[id number] : [...] droop is a deficit from prior stroke. [facility] Medical History Hyperlipidemia Elevated troponin Type 2 [...] to chronic blood loss Current use of group home anticoagulation Morbid obesity with BMI of 45.0-49.9, adult Atherosclerotic heart disease of [place] coronary artery without angina pectoris Mini stroke [...] depres wanda 04/17/18 09/26/24 History release (Cymbalta) blood-glucose,participant administrator,cont #1 ea 07/26/20 Unknown Rx (Dexcom G6 On Site Nurse) blood-glucose transmitter (Dexcom #1 ea 12/29/21 Unkno [...] 2.5 mg/3 mL 2.5 mg inhalation Q4H ND N 11/25/24 Unknown History (0.083 %) solution [...] 76.5 H Lymph % (Auto) 8.9 L [place] % (Auto) 12.8 H Eos % (Auto) [...] Clarity Clear Urine pH 6.0 Ur Specific Mertens 1.015 Urine Protein 15 H Urine Glucose [...] no visible acute traumatic injury. Reading Location: [facility] Cervical Spine CT 11/26/24 09:38 IMPRESSION: DEGENERATIVE CHANGES OF THE CERVICAL SPINE. NO EVIDENCE OF SIGNIFICANT OSSEOUS CENTRAL CANAL OR NEURAL FORAMINAL STENOSIS. Reading Location: [id number] Chest X-Ray 11/26/24 09:38 IMPRESSION: Examination limited [...] acute osseous process is identified. Reading Location: [place] [address] Pelvis X-Ray 11/26/24 09:38 IMPRESSION: Degenerative changes [...] out a currently occult fracture. Reading Location: [place] [address] Discharge Plan Triage Chief Complaint: Weakness ED Provider: Betina Martinez Dx/Rx/DC Orders Prescriptions: No Action (DME) Dexcom G6 On Site Nurse Misc See Rx Instructions .ROUTE .MEDSUPPLY Qty: [...] MD [Primary Care Provider] - Print Language: Bermudian What to do if you have Problems For any increased pain, shortness of breath, bleeding, nausea or vomiting, chestpain, or any unexpected problems, contact your Primary Care Provider. Call [facility] ([phone]) or report to the closest Emergency Room. Call 911 if necessary. 11/26/24 1218 <Electronically signed by Betina Martinez MD> Cosigner Signature (if applicable): CC: Dr. Brandt Winter MD ~ Signed [facility] Work Phone: 1(720) 437-357708-28-2025 Radiology Diagnostic study [facility]08-28-2025 Radiology Diagnostic study [facility]08-28-2025 Radiology Diagnostic study [facility] 11-26-2024 Radiology Diagnostic study [facility]08-21-2025 Discharge summary Author Amanda Devlin [facility] Note Date/Time November 19, 2024 7: 00pm [facility] Occupational Therapy [facility] [address] [place] [address]. [address] [place] [address] / REHABILITATION SERVICES DISCHARGE SUMMARY MR#: [id number] Acct: [id number] Name: KRUNAL LEOS Rep #: [id number] [...] pt will demo a increase in left systems architecture analyst strength by 10# to increase pts ind.with [...] please fell free to call me at [phone]. Thank you for the referral of this patient. Sincerely, Amanda Devlin <Electronically signed by Amanda Devlin> 11/19/24 6303 CC: Dr. Brandt Winter MD; Dr. Karina Benítez, DO ~ CK Signed [facility] Work Phone: 1([phone]) [phone] History of Present illness Narrative* Rosalino Padron MD - 11/13/2024 1:00 PM EDT Images from the original note were not included. Department of Medicine Division of Pulmonary, Critical Care, and Sleep Medicine Consultation [address] Pulmonary [facility] Patient was referred by his PCP (Dr. [...] surgery total pulmonary decortication in 2016 at [facility]. He was hospitalized in [place] from 03/02-03/04/2024 for acute hypoxic respiratory failure. [...] Review Audit Reviewed by Suly Johnston MA (Health And Social Care Teacher) on 11/13/24 at 1302 Medication Order Taking? Sig Documenting Provider Last Dose Status albuterol 90 mcg/actuation inhaler [id number] Yes INHALE 2 PUFFS BY MOUTH EVERY 4 HOURS NEEDED FOR SHORTNESS OF BREATH OR WHEEZING Historical ProviderMD Active amLODIPine (Norvasc) 5 mg tablet [id number] Yes Take 1 tablet (5 mg) by mouth once daily. HistoricalProviderMD Active aspirin 325 mg tablet [id number] Yes Take 1 tablet (325 mg) by mouth once daily. Historical ProviderMD Active atorvastatin (Lipitor) 80 mg tablet [id number] Yes Take 1 tablet (80 mg) by mouth once daily at bedtime. Historical Provider, Active betamethasone, augmented, (Diprolene) 0.05 % lotion [id number] Yes Historical ProviderMD Active bismuth subsalicylate (Pepto Bismol) 262 mg chewable tablet [id number] Yes Historical ProviderMD Active Brilinta 90 mg tablet [id number] Yes 1 tablet (90 mg). Historical ProviderMD Active busPIRone (Buspar) 10 mg tablet [id number] Yes Take 1 tablet (10 mg) by mouth 3 times a day. Historical ProviderMD Active clopidogrel (Plavix) 75 mg tablet [id number] Take 1 tablet (75 mg) by mouth early in the morning.. Historical ProviderMD Active dapagliflozin propanediol (Farxiga) 5 mg [id number] Take 1 tablet (5 mg) by mouth once daily. Historical ProviderMD Active Dexcom G6 Sensor device [id number] Yes USE DIRECTED FOR CONTINUOUS BLOOD GLUCOSE MONITORING, CHANGE SENSOR EVERY 10 DAYS Historical ProviderMD Active DULoxetine (Cymbalta) [address] capsule [id number] Yes Take 1 capsule (60 mg) by mouth once daily. Historical Provider, Active Eliquis 5 mg tablet [id number] Yes Take 1 tablet (5 mg) by mouth 2 times a day. Historical ProviderMD Active ergocalciferol (Vitamin D-2) 1250 mcg (50,000 units) capsule [id number] Take 1 capsule (1,250 mcg) by mouth. Historical ProviderMD Active fenofibrate (Tricor) 54 mg tablet [id number] Yes Take 1 tablet (54 mg) by mouth once daily. Historical ProviderMD Active furosemide (Lasix) 40 mg tablet [id number] Yes Take 1 tablet (40 mg) by mouth. Historical ProviderMD Active glimepiride (Amaryl) 4 mg tablet [id number] Yes Take 1 tablet (4 mg) by mouth early in the morning..Historical ProviderMD Active glipiZIDE (Glucotrol) 5 mg tablet [id number] Yes Take 1 tablet (5 mg) by mouth. Historical ProviderMD Active HumuLIN R U-500, Conc, Insulin 500 unit/mL CONCENTRATED injection [id number] Yes Historical ProviderMD Active Jardiance 25 mg [id number] Yes Take 1 tablet (25 mg) by mouth once daily. Historical ProviderMD Active levothyroxine (Synthroid, Levoxyl) 112 mcg tablet [id number] Yes Take 1 tablet (112 mcg) by mouth once daily. Gloria Rahman MD Active lisinopril 40 mg tablet [id number] Yes Take 1 tablet (40 mg) by mouth once daily. Gloria Rahman MD Active metFORMIN (Glucophage) 500 mg tablet [id number] Take 1 tablet (500 mg) by mouth 2 times daily (morning and late afternoon). Gloria Rahman MD Active metoprolol succinate XL (Toprol-XL) 100 mg 24 hr tablet [id number] Yes TAKE 1 TABLET BY MOUTH DAILY for heart Historical MD Lacey Active Mucinex DM 60-1,200 mg tablet extended release 12 hr [id number] Take 1 tablet by mouth every 12 hours. Gloria Rahman MD Active oxyCODONE-acetaminophen (Percocet) 5-325 mg tablet [id number] Yes Take 1 tablet by mouth 2 times a day as needed. Gloria Rahman MD Active pantoprazole (ProtoNix) 40 mg EC tablet [id number] Yes Take 1 tablet (40 mg) by mouth. Gloria Rahman MD Active potassium citrate CR (Urocit-K-10) 10 mEq ER tablet [id number] Yes Take 1 tablet (10 mEq) by mouth twice a day. Gloria Rahman MD Active predniSONE (Deltasone) 20 mg tablet [id number] Take 0.5 tablets (10 mg) by mouth early in the morning.. Gloria Rahman MD Active predniSONE (Deltasone) 20 mg tablet [id number] Yes Take 2 tablets (40 mg) by mouth once daily. Rosalino Padron MD Active predniSONE (Deltasone) 5 mg tablet [id number] Yes Take 4 tablets (20 mg) by mouth once daily for 30 days, THEN 3 tablets (15 mg) once daily for 30 days, THEN 2 tablets (10 mg) once daily for 30 days, THEN 1 tablet (5 mg) once daily for 14 days. Rosalino Padron MD Active spironolactone (Aldactone) 50 mg tablet [id number] Yes Take 1 tablet (50 mg) by mouth once daily. Gloria Rahman MD Active tamsulosin (Flomax) 0.4 mg 24 hr capsule [id number] Yes Take 1 capsule (0.4 mg) by mouth once daily.Gloria Rahman MD Active traMADol (Ultram) 50 mg tablet [id number] Take 1 tablet (50 mg) by mouth. [...] Rosalino Padron MD 11/13/2024 documented in this [facility] Work Phone: 1(420) 120-785508-15-2025 Instructions* Patient Instructions* Rosalino Padron MD - [...] a breathing or a walking test Call [phone] to schedule EKG's, Echocardiograms and Cardiopulmonary Stress Tests. Call [phone] to schedule Radiology tests such as Nuclear Medicine Stress Tests, CT Scans, and MRI's. Should you have any questions Please Call our pulmonary nurse Linda Marie at [phone] or my catalog library assistant Puneet Leone at [phone] documented in this [facility] Work Phone: 1(855) 624-803308-05-2025 Progress note Author Rito Lundberg [facility] Note Date/Time November 03, 2024 2:1 4pm [facility] [address] [address] OFFICE VISIT Date of Service: 11/03/24 1331 MR#: [id number] Acct: [id number] Name: KRUNAL LEOS Rep #: [id number] : 1965 From: Rito alvarez MD Age/Sex: 59/M Location: [facility] Status: Signed HPI Subjective Date of Service [...] Resected and retrieved. Clip was placed. Clip skiver box toe: Radio Rebel. - The examined portion of the ileum was normal. March 2024 pathology: MICROSCOPIC DIAGNOSIS A. Gastric body polyp, polypectomy: Fragments of hyperplastic/inflammatory polyp. See comment. B. Hepatic flexure polyp, polypectomy: Fragments of villous adenoma. C. Ascending colon polyp, biopsy: Fragments of tubular adenoma. [facility] Medical History Hyperlipidemia Elevated troponin Type [...] to chronic blood loss Current use of group home anticoagulation Morbid obesity with BMI of 45.0-49.9, adult Atherosclerotic heart disease of [place] coronary artery without angina pectoris Mini stroke [...] depres wanda 04/17/18 11/03/24 History release (Cymbalta) blood-glucose,participant administrator,cont #1 ea 07/26/20 11/03/24 Rx (Dexcom G6 On Site Nurse) blood-glucose transmitter (Dexcom #1 ea 12/29/2111/03 Rx [...] up in 6 months Rito Lundberg MD Retail Field Representative, [facility] Divisions of Medical Oncology & Hematology Department of Internal Medicine [place] [address] This note was generated using a voice [...] applicable) CC: Dr. Brandt Winter MD ~ [facility] Work Phone: 1([phone]) 227-807207-29-2025 Telephone encounter Note* Telephone Encounter - Kandice Curran RN - 10/27/2024 12:09 PM EDT Called pharmacy, they need additional refills sent in. Will pend and send a request to the provider. [id number] Miscellaneous Notes* Telephone Encounter - Kandice Curran RN - 10/27/2024 12:09 PM EDT Called pharmacy, they need additional refills sent in. Will pend and send a request to the provider. documented in this encounterSKettering Health Main [id number] Discharge summary Author Karina Benítez [facility] Note Date/Time September 28, 2024 4:06 pm [facility] Medical Records Department [address] [place] [address] Discharge Summary 09/28/24 1442 MR#: [id number] Acct: [id number] Name: KRUNAL LEOS Rep #:[id number] : 1965 59 From: Karina Benítez DO PCP: Dr. Brandt Winter MD Status:ADM [facility] Prov[facility] Date of Admission: 09/26/24 [...] Consult: Yes Reason For Visit: ACUTE CVA, LA OCCLUSION Diagnosis Discharge Diagnosis (1) Acute right [...] (Cymbalta) 60 mg PO DAILY depression 04/17/18 blood-glucose,participant administrator,cont (Dexcom G6 On Site Nurse) #1 ea 07/26/20 atorvastatin 80 mg tablet [...] male who presented to the emergency department [facility] on 09/26/2024 with a chief complaint of [...] weaning your steroids please contact your primary stitch bonding machine operator 4. Would have extensive conversation in the future before holding aspirin, Brilinta, and Eliquis 5. Please follow-up with your neurologist as previously recommended Discharge Orders/Prescriptions Prescriptions: Continued (DME) [facility] See Rx Instructions .ROUTE .MEDSUPPLY Qty: 1 [...] Self Care Charges/Coding Visit Charges Inpatient E&M: 75476 Disch Hosp >30min 09/28/24 1606 <Electronically signed by Karina Benítez DO> Cosigner Signature (if applicable): CC: Dr. Brandt Winter MD; Dr. Karina Benítez DO; Dr. Toni Vann MD~ Signed [facility] Work Phone: 1(171) 680-945706-30-2025 [facility]06-30-2025 Progress note Author Amy Dumont [facility] Note Date/Time September 28, 2024 12:3 3pm [facility] Medical Records Department [address] [place] [address] Progress Note - Neurology 09/28/24 1144 MR#: [id number] Acct: [id number] Name: KRUNAL LEOS Rep #:[id number] : 1965 59 From: Amy Dumont MD PCP: Dr. Brandt Winter MD Status:ADM IN Location: [place] [address] Objective Data Objective Data Vital Signs: Vital [...] Additional chronic findings as described. Reading Location: [facility] Physical Exam Neuro Neuro Narrative: Awake,alert, oriented [...] and vascular surgeon who switched him to [id number] and switched plavix to brillinta and he [...] Recorded Date Recorded By Document 09/26/24 15:40 [id number] 09/26/24 15:41 09/26/24 15:40 NIH Stroke Scale [...] and with change in RN caregiver. Freq: [id number] Protocol: Activity Type Activity Date Activity User E-sign Co-sign Detail Recorded Client Recorded Date Recorded By Document 09/28/24 09:27 MARLY [id number] 09/28/24 09:29 MARLY 09/28/24 09:27 -1a. Level [...] Cosigner Signature (if applicable): CC: ~ Signed [facility] Work Phone: [phone]) 479-203306-29-2025 Progress note Author Karina Benítez [facility] Note Date/Time September 27, 2024 3:41 pm [facility] Medical Records Department [address] [facility] [place] [address] Progress Note - Hospitalist 09/27/24 0801 MR#: [id number] Acct: [id number] Name: KRUNAL LEOS Rep #:[id number] : 1965 59 From: Karina Benítez DO PCP: Dr. Brandt Winter MD Status:ADM IN Location: [place] [address] Reason for Visit Reason for Visit: Diagnoses [...] (Auto) 85.3 H, Lymph %(Auto) 4.2 L, [place] % (Auto) 8.7, Eos % (Auto) 0.6, [...] % (Auto) 68.9, Lymph % (Auto) 19.4, [place] % (Auto) 8.9, Eos % (Auto) 1.7, [...] Avitia at 4:36 pm on09/26/24. Reading Location: [facility] Head/Neck CTA 09/26/24 17:06 IMPRESSION: 1. Progression [...] At 6:31 pm on 09/26/24. Reading Location: [facility] Physical Exam Const alert, oriented x3 and [...] -Full code Charges/Coding Visit Charges Inpatient E&M: 05698 Subs Hosp L2 NIHSS NIHSS Nursing Documentation NIHSS Nursing Documentation: NIH Stroke Scale Start: 09/26/24 15:40 Freq: Status: Discharge Protocol: Activity Type Activity Date Activity User E-sign Co-sign Detail Recorded Client Recorded Date Recorded By Document 09/26/24 15:40 [id number] 09/26/24 15:41 09/26/24 15:40 NIH Stroke Scale [...] and with change in RN caregiver. Freq: [id number] Protocol: Activity Type Activity Date Activity User E-sign Co-sign Detail Recorded Client Recorded Date Recorded By Document 09/27/24 07:19 AM [id number] 09/27/24 07:19 AMG 09/27/24 07:19 -1a. Level [...] Cosigner Signature (if applicable): CC: ~ Signed [facility] Work Phone: [phone]) [phone] Consult note Author Fred Talbert [facility] Note Date/Time September 27, 2024 11:4 5am [facility] Medical Records Department [address] [place] [address] Consultation - Neurology 09/27/24 1129 MR#: [id number] Acct: [id number] Name: KRUNAL LEOS Rep #:[id number] : 1965 59 From: Fred Alvarado PCP: Dr. Brandt Winter MD Status:ADM [facility] Assessment and Plan: Neuro Assessment/Plan [...] neurologist and vascular surgeon who switched himto [id number] and switched plavix to brillinta and he [...] further recs. F/u with pcp and neurologist. 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 of group home anticoagulation Morbid obesity with BMI of 45.0-49.9, adult Atherosclerotic heart disease of [place] coronary artery without angina pectoris Mini stroke [...] depres wanda 04/17/18 09/26/24 History release (Cymbalta) blood-glucose,participant administrator,cont #1 ea 07/26/20 Unknown Rx (Dexcom G6 On Site Nurse) atorvastatin 80 mg tablet (Lipitor) 80 mg [...] (Auto) 85.3 H, Lymph %(Auto) 4.2 L, [place] % (Auto) 8.7, Eos % (Auto) 0.6, [...] % (Auto) 68.9, Lymph % (Auto) 19.4, [place] % (Auto) 8.9, Eos % (Auto) 1.7, [...] Avitia at 4:36 pm on09/26/24. Reading Location: [facility] Head/Neck CTA 09/26/24 17:06 IMPRESSION: 1. Progression [...] At 6:31 pm on 09/26/24. Reading Location: [facility] Active Medications Active Medications Active Medications: Current [...] Ferrous Sulfate 325 Mg Tablet PO DAILY@1200 [facility] Glucagon 1 mg 09/26/24 19:19 Glucagon 1 Mg/Ml Syringe IM X1 PRN HYPOGLYCEMIA Protocol Hydralazine HCl 5 mg 09/26/24 19:19 Hydralazine 20 Mg/Ml Vial IV 09/27/24 19:23 Q30M PRN maintain BP parameters with HR <60 Sodium Chloride 250 mls @ 15 mls/hr 09/26/24 18:49 IV .[id number] PRN Saline Flush Sodium Chloride 250 mls @ 15 mls/hr 09/26/24 18:49 IV .[id number] PRN Additional IVPB Infusion Dextrose 250 mls @ 0 mls/hr 09/26/24 19:19 Dextrose 10%-Water IV .Q0M PRN HYPOGLYCEMIA Protocol As Directed Insulin Aspart 1 unit 09/27/24 10:00 09/27/24 10:44 Insulin Basal Pump SC Not Given UD [facility] Insulin Human Lispro 0 unit 09/26/24 22:00 09/27/24 06:03 Insulin Lispro 100 Unit/Ml Insuln.Pen SC Not Given ACHS [facility] Protocol Labetalol HCl 20 mg 09/26/24 15:39 Labetalol 20 Mg/4 Ml Vial IV 09/27/24 15:39 X1 PRN BLOOD PRESSURE Labetalol HCl 10 - 20 mg 09/26/24 19:19 Labetalol 20 Mg/4 Ml Vial IV 09/27/24 19:23 Q10M PRN PRN maintain BP parameters with HR >/=60 Levothyroxine Sodium 112 mcg 09/27/24 06:00 09/27/24 06:04 Levothyroxine 112 Mcg Tablet PO 112 mcg DAILY@0600 [facility] Administration Melatonin 10 mg 09/26/24 19:19 Melatonin 3 Mg Tablet PO QHS PRN PRN INSOMNIA Metoprolol Succinate 50 mg 09/27/24 10:00 09/27/24 10:43 Metoprolol(Xl)Succ 50 Mg Tablet PO 50 mg DAILY [facility] Administration Protocol Ondansetron HCl 4 mg 09/26/24 [...] Recorded Date Recorded By Document 09/26/24 15:40 [id number] 09/26/24 15:41 09/26/24 15:40 NIH Stroke Scale [...] and with change in RN caregiver. Freq: [id number] Protocol: Activity Type Activity Date Activity User E-sign Co-sign Detail Recorded Client Recorded Date Recorded By Document 09/27/24 11:00 [id number] 09/27/24 11:03 09/27/24 11:00 -1a. Level of [...] Winter MD; Dr. Angel Avitia MD~ Signed [facility] Work Phone: 1(911) 250-147406-28-2025 History and physical note Author Xiao Berrios [facility] Note Date/Time September 26, 2024 8:18 pm [facility] Medical Records Department [address] [place] [address] H&P Exam - Hospitalist 09/26/24 1827 MR#: [id number] Acct: [id number] Name: KRUNAL LEOS Rep #:[id number] : 1965 59 From: Xiao Berrios MD PCP: Dr. Brandt Winter MD Status:ADM IN Location: [id number] 1 [facility] - General General Date of Admission: 09/26/24 Date of Service: 09/26/24 Chief Complaint: Left-sided numbness and weakness, virtually resolved but still difficulty getting around HPI Narrative KRUNAL LEOS, is a 59-year-old male history of CVA, chronic respiratory failure on home O2, BPH, depression, type 2 diabetes on insulin pump, KIANNA, anemia, CHF who presented to [facility] ED 09/26/2024 due to tingling weakness on [...] acute complaints at time of my exam. 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 Reading Location: [id number] Assessment & Plan Assessment/Plan (1) Acute CVA [...] central tracheal secretions -Patient was evaluated by [facility] early in 2024 and intervention for his [...] findings and discussed transfer versus staying at [facility], patient's neuroexam is exactly the same he reports overall he feels well, patient would like to stay at [facility] and understands that if he were [...] 100 Minutes Charges/Coding Visit Charges Inpatient E&M: 98437 Init Hosp L3 09/26/242017 <Electronically signed by Xiao Berrios MD> Cosigner Signature (if applicable): CC: Dr. Brandt Winter MD; Dr. Xiao Berrios MD~ Signed [facility] Work Phone: 1(655) 553-342906-28-2025 Discharge summary Author Angel Avitia [facility] Note Date/Time September 26, 2024 5:05 pm [facility] Medical Records Department [address] [place] [address] Emergency Department Summary 09/26/24 MR#: [id number] Acct: [id number] Name: KRUNAL LEOS Rep #:[id number] : [...] and lung disease. This was performed at [facility]. Patient did take his medicine last evening [...] symptoms: Yes Recent Illness/Hospitalization: Yes (Lung biopsy [facility]) [facility] Medical History Hyperlipidemia Ischemic cerebrovascular accident (CVA) CHF (congestive heart failure) Chronic respiratory failure with hypoxia KIANNA (obstructive sleep apnea) Presence of insulin pump CKD (chronic kidney disease) Hypothyroidism Essential (primary) hypertension Diabetes Acute hypoxemic respiratory failure Chronic diastolic CHF (congestive heart failure) Obesity Exertional shortness of breath Iron deficiency anemia due to chronic blood loss 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 [place] Coma Scale: document GCS [...] 85.3 H Lymph % (Auto) 4.2 L [place] % (Auto) 8.7 Eos % (Auto) 0.6 [...] Avitia at 4:36 pm on09/26/24. Reading Location: [facility] Radiologist informing there is no evidence of acute stroke or hemorrhage. CT was reviewed by me. There is nothing obvious that I saw or any change compared to prior. EKG Initial EKG: Attestation: I personally reviewed and interpreted this EKG as follows: Interpretation: Sinus Rhythm (Rate is 82. ND interval 238 ms. QRS durations 106 ms. QT durations are 96 ms. Slater is normal. There is evidence of LVH. [...] hyperglycemia Prescriptions: No Action (DME) Dexcom G6 On Site Nurse Misc See Rx Instructions .ROUTE .MEDSUPPLY Qty: [...] MD [Primary Care Provider] - Print Language: Bermudian Disposition Disposition: Acute Care Hospital [facility] NIHSS NIHSS 1a. Level of Consciousness: [...] your Primary Care Provider. Call [facility] ([phone]) or report to the closest Emergency Room. Call 911 if necessary. 09/26/241704 <Electronically signed by Angel Avitia MD> Cosigner Signature (if applicable): CC: Dr. Brandt Winter MD ~ Signed [facility] Work Phone: 1(154) 162-132406-28-2025 Radiology Diagnostic study [facility]06-28-2025 Discharge summary [facility] Medical Records Department [address] [place] [address] Emergency Department Summary 09/26/24 MR#: [id number] Acct: [id number] Name: KRUNAL LEOS Rep #:[id number] 13 : [...] and lung disease. This was performed at [facility]. Patient did take his medicine last evening [...] symptoms: Yes Recent Illness/Hospitalization: Yes (Lung biopsy [facility]) [facility] Medical History Hyperlipidemia Ischemic cerebrovascular accident (CVA) CHF (congestive heart failure) Chronic respiratory failure with hypoxia KIANNA (obstructive sleep apnea) Presence of insulin pump CKD (chronic kidney disease) Hypothyroidism Essential (primary) hypertension Diabetes Acute hypoxemic respiratory failure Chronic diastolic CHF (congestive heart failure) Obesity Exertional shortness of breath Iron deficiency anemia due to chronic blood loss Current use of group home anticoagulation Morbid obesity with BMI of 45.0-49.9, adult Atherosclerotic heart disease of [place] coronary artery without angina pectoris Mini stroke [...] wanda 04/17/18 04/24/24 08:10 History release (Cymbalta) blood-glucose,participant administrator,cont #1 ea 07/26/20 Unknown Rx (Dexcom G6 On Site Nurse) atorvastatin 80 mg tablet (Lipitor) 80 mg [...] is old. 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 [place] Coma Scale: document GCS findings Spontaneous Obeys [...] 85.3 H Lymph % (Auto) 4.2 L [place] % (Auto) 8.7 Eos % (Auto) 0.6 [...] Avitia at 4:36 pm on09/26/24. Reading Location: [facility] Radiologist informing there is no evidence of acute stroke or hemorrhage. CT was reviewed by me. There is nothing obvious that I saw or any change compared to prior. EKG Initial EKG: Attestation: I personally reviewed and interpreted this EKG as follows: Interpretation: Sinus Rhythm (Rate is 82. ND interval 238 ms. QRS durations 106 ms. QT durations are 96 ms. Slater is normal. There is evidence of LVH. [...] hyperglycemia Prescriptions: No Action (DME) Dexcom G6 On Site Nurse Misc See Rx Instructions .ROUTE .MEDSUPPLY Qty: [...] MD [Primary Care Provider] - Print Language: B[place]ian Disposition Disposition: Acute Care Hospital [facility] NIHSS NIHSS 1a. Level of Consciousness: [...] your Primary Care Provider. Call [facility] ([phone]) or report tothe closest Emergency Room. Call 911 if necessary. 09/26/24 1705 Cosigner Signature (if applicable): CC: Dr. Brandt Winter MD ~ Signed [facility]06-28-2025 Radiology Diagnostic study note [facility] Imaging Services [address] [place] [address] STROKE Brain/Head without Cont MR#: [id number] Acct: [id number] Name: KRUNAL LEOS Rep #: [id number] : 1965 M 59 From: Astrid Newberry MD PCP: Dr. Brandt Winter MD Status: REG ER Study:STROKE Brain/Head without Cont Date of Exam: 09/26/24 Exam# [id number] Ordering Dr: Domonique Avitia MD EXAM: STROKE [...] Avitia at 4:36 pm on09/26/24. Reading Location: [facility] CC: Dr. Brandt Winter MD; Dr. Angel Avitia MD ~ Production Underwriter: Signed [facility]06-28-2025 Discharge summary Author Angel Avitia [facility] Note Date/Time September 26, 2024 5:05 pm [facility] Medical Records Department [address] [place] [address] Emergency Department Summary 09/26/24 MR#: [id number] Acct: [id number] Name: KRUNAL LEOS Rep #:[id number] 13 : [...] and lung disease. This was performed at [facility]. Patient did take his medicine last evening [...] symptoms: Yes Recent Illness/Hospitalization: Yes (Lung biopsy [facility]) [facility] Medical History Hyperlipidemia Ischemic cerebrovascular accident (CVA) CHF (congestive heart failure) Chronic respiratory failure with hypoxia KIANNA (obstructive sleep apnea) Presence of insulin pump CKD (chronic kidney disease) Hypothyroidism Essential (primary) hypertension Diabetes Acute hypoxemic respiratory failure Chronic diastolic CHF (congestive heart failure) Obesity Exertional shortness of breath Iron deficiency anemia due to chronic blood loss 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 [place] Coma Scale: document GCS [...] 85.3 H Lymph % (Auto) 4.2 L [place] % (Auto) 8.7 Eos % (Auto) 0.6 [...] Avitia at 4:36 pm on09/26/24. Reading Location: [facility] Radiologist informing there is no evidence of acute stroke or hemorrhage. CT was reviewed by me. There is nothing obvious that I saw or any change compared to prior. EKG Initial EKG: Attestation: I personally reviewed and interpreted this EKG as follows: Interpretation: Sinus Rhythm (Rate is 82. ND interval 238 ms. QRS durations 106 ms. QT durations are 96 ms. Slater is normal. There is evidence of LVH. [...] hyperglycemia Prescriptions: No Action (DME) Dexcom G6 On Site Nurse Misc See Rx Instructions .ROUTE .MEDSUPPLY Qty: [...] MD [Primary Care Provider] - Print Language: B[place]udian Disposition Disposition: Acute Care Hospital [facility] NIHSS NIHSS 1a. Level of Consciousness: [...] your Primary Care Provider. Call [facility] ([phone]) or report to the closest Emergency Room. Call 911 if necessary. 09/26/24 1705 <Electronically signed by Angel Avitia MD> Cosigner Signature (if applicable): CC: Dr. Brandt Winter MD ~ Signed [facility] Work Phone: 1(837) 717-538706-26-2025 Hospital Discharge instructions* Discharge Instructions* Dikc Nguyen MD - 09/24/2024 9:17 AM EDT [facility] Pulmonology The anesthetics, sedatives or narcotics [...] on weekends: / and ask for the Ribbon Cutter on-call(Pager Number: [phone]) documented in this [facility] Work Phone: 1([phone]) 543-421706-26-2025 Attending History and physical note* Maeve Pringle [...] Pulmonary, Critical Care, and Sleep Medicine Consultation [address] Pulmonary Clinic/[facility] Patient was referred by his PCP (Dr. [...] surgery total pulmonary decortication in 2016 at [facility]. He was hospitalized in [place] from 03/02-03/04/2024 for acute hypoxic respiratory failure. [...] Review Audit Reviewed by Heavenly Sparks MA (Health And Social Care Teacher) on 08/28/24 at 1158 Medication Order Taking? Sig Documenting Provider Last Dose Status albuterol 90 mcg/actuation inhaler [id number] INHALE 2 PUFFS BY MOUTH EVERY 4 HOURS NEEDED FOR SHORTNESS OF BREATH OR WHEEZING Historical ProviderMD Active amLODIPine (Norvasc) 5 mg tablet [id number] Take 1 tablet (5 mg) by mouth once daily. Historical ProviderMD Active aspirin 325 mg tablet [id number] Take 1 tablet (325 mg) by mouth once daily. Historical ProviderLORNActive atorvastatin (Lipitor) 80 mg tablet [id number] Take 1 tablet (80 mg) by mouth once daily at bedtime.Historical ProviderMD Active betamethasone, augmented, (Diprolene) 0.05 % lotion [id number] APPLY TO RASH ON THE TRUNK OR SCALP 1-2 TIMES DAILY NEEDED Historical ProviderMD Active bismuth subsalicylate (Pepto Bismol) 262 mg chewable tablet [id number] CHEW AND SWALLOW 2 TABLETS BYMOUTH 3 TIMES A DAY for 2 weeks. max 16 tablets per 24 hours Patient not taking: Reported on 08/07/2024 Historical ProviderMD Active Brilinta 90 mg tablet [id number] 1 tablet (90 mg). Historical ProviderMD Active busPIRone (Buspar) 10 mg tablet [id number] Take 1 tablet (10 mg) by mouth 3 times a day. Historical ProviderMD Active clopidogrel (Plavix) 75 mg tablet [id number] Take 1 tablet (75 mg) by mouth early in the morning.. Gloria Rahman MD Active dapagliflozin propanediol (Farxiga) 5 mg [id number] Take 1 tablet (5 mg) by mouth once daily. Gloria Rahman MD Active Dexcom G6 Sensor device [id number] USE DIRECTED FOR CONTINUOUS BLOOD GLUCOSE MONITORING, CHANGE SENSOR EVERY 10 DAYS Gloria Rahman MD Active DULoxetine (Cymbalta) [address] capsule [id number] Take 1 capsule (60 mg) by mouth once daily. Gloria Rahman MD Active Eliquis 5 mg tablet [id number] Take 1 tablet (5 mg) by mouth 2 times a day. Gloria Rahman MD Active ergocalciferol (Vitamin D-2) 1250 mcg (50,000 units) capsule [id number] Take 1 capsule (1,250 mcg) by mouth. Gloria Rahman MD Active fenofibrate (Tricor) 54 mg tablet [id number] Take 1 tablet (54 mg) by mouth once daily. Historical MD Lacey Active furosemide (Lasix) 40 mg tablet [id number] Take 1 tablet (40 mg) by mouth. Gloria Rahman MD Active glimepiride (Amaryl) 4 mg tablet [id number] Take 1 tablet (4 mg) by mouth early in the morning.. Patient not taking: Reported on 08/07/2024 Gloria Rahman MD Active glipiZIDE (Glucotrol) 5 mg tablet [id number] Take 1 tablet (5 mg) by mouth. Patient not taking: Reported on 08/07/2024 Gloria Rahman MD Active HumuLIN R U-500, Conc, Insulin 500 unit/mL CONCENTRATED injection [id number] INJECT 75 UNITS DAILY VIA CONTINUOUS SUBCUTANEOUS INFUSION. DISCARD VIAL AFTER 40 DAYS Patient not taking: Reported on 08/07/2024 Gloria Rahman MD Active Jardiance 25 mg [id number] Take 1 tablet (25 mg) by mouth once daily. Gloria Rahman MD Active levothyroxine (Synthroid, Levoxyl) 112 mcg tablet [id number] Take 1 tablet (112 mcg) by mouth once daily. Gloria ProviderMD Active lisinopril 40 mg tablet [id number] Take 1 tablet (40 mg) by mouth once daily. Historical ProviderMD Active metFORMIN (Glucophage) 500 mg tablet [id number] Take 1 tablet (500 mg) by mouth 2 times daily (morning and late afternoon). Historical ProviderMD Active metoprolol succinate XL (Toprol-XL) 100 mg 24 hr tablet [id number] TAKE 1 TABLET BY MOUTH DAILY for heart Historical ProviderMD Active Mucinex DM 60-1,200 mg tablet extended release 12 hr [id number] Take 1 tablet by mouth every 12 hours. Historical ProviderMD Active oxyCODONE-acetaminophen (Percocet) 5-325 mg tablet [id number] Take 1 tablet by mouth 2 times a day as needed. Patient not taking: Reported on 08/07/2024 Gloria ProviderMD Active pantoprazole (ProtoNix) 40 mg EC tablet [id number] Take 1 tablet (40 mg) by mouth. Historical ProviderMD Active potassium citrate CR (Urocit-K-10) 10 mEq ER tablet [id number] Take 1 tablet (10 mEq) by mouth twicea day. Historical ProviderMD Active predniSONE (Deltasone) 20 mg tablet [id number] Take 0.5 tablets (10 mg) by mouth early in the morning.. Historical ProviderMD Active predniSONE (Deltasone) 20 mg tablet [id number] Take 2 tablets (40 mg) by mouth once daily. Patient not taking: Reported on 08/07/2024 Rosalino Padron MD Active predniSONE (Deltasone) 5 mg tablet [id number] Take 4 tablets (20 mg) by mouth once daily for 30 days, THEN 3 tablets (15 mg) once daily for 30 days, THEN 2 tablets (10 mg) once daily for 30 days, THEN1 tablet (5 mg) once daily for 14 days. Rosalino Padron MD Active spironolactone (Aldactone) 50 mg tablet [id number] Take 1 tablet (50 mg) by mouth once daily. Patient not taking: Reported on 08/07/2024 Gloria ProviderMD Active tamsulosin (Flomax) 0.4 mg 24 hr capsule [id number] Take 1 capsule (0.4 mg) by mouth once daily. Historical ProviderMD Active traMADol (Ultram) 50 mg tablet [id number] Take 1 tablet (50 mg) by mouth. [...] once above completed Rosalino Padron MD 08/28/2024 [facility] Work Phone: 1([phone]) 524-572206-26-2025 History and physical note* Maeve Pringle MD [...] Pulmonary, Critical Care, and Sleep Medicine Consultation [address] [facility] Clinic[facility] Patient was referred by his PCP (Dr. [...] surgery total pulmonary decortication in 2016 at [facility]. He was hospitalized in [place] from 03/02-03/04/2024 for acute hypoxic respiratory failure. [...] Medications: Medication Documentation Review Audit Reviewed by Heavnely Sparks MA (Health And Social Care Teacher) on 08/28/24 at 1158 Medication Order Taking? Sig Documenting Provider Last Dose Status albuterol 90 mcg/actuation inhaler [id number] INHALE 2 PUFFS BY MOUTH EVERY 4 HOURS NEEDED FOR SHORTNESS OF BREATH OR WHEEZING Historical ProviderMD Active amLODIPine (Norvasc) 5 mg tablet [id number] Take 1 tablet (5 mg) by mouth once daily. Historical ProviderMD Active aspirin 325 mg tablet [id number] Take 1 tablet (325 mg) by mouth once daily. Historical ProviderLORNActive atorvastatin (Lipitor) 80 mg tablet [id number] Take 1 tablet (80 mg) by mouth once daily at bedtime.Historical ProviderMD Active betamethasone, augmented, (Diprolene) 0.05 % lotion [id number] APPLY TO RASH ON THE TRUNK OR SCALP 1-2 TIMES DAILY NEEDED Historical ProviderMD Active bismuth subsalicylate (Pepto Bismol) 262 mg chewable tablet [id number] CHEW AND SWALLOW 2 TABLETS BYMOUTH 3 TIMES A DAY for 2 weeks. max 16 tablets per 24 hours Patient not taking: Reported on 08/07/2024 Historical ProviderMD Active Brilinta 90 mg tablet [id number] 1 tablet (90 mg). Historical ProviderMD Active busPIRone (Buspar) 10 mg tablet [id number] Take 1 tablet (10 mg) by mouth 3 times a day. Historical ProviderMD Active clopidogrel (Plavix) 75 mg tablet [id number] Take 1 tablet (75 mg) by mouth early in the morning.. Historical ProviderMD Active dapagliflozin propanediol (Farxiga) 5 mg [id number] Take 1 tablet (5 mg) by mouth once daily. Historical ProviderMD Active MDSavecom G6 Sensor device [id number] USE DIRECTED FOR CONTINUOUS BLOOD GLUCOSE MONITORING, CHANGE SENSOR EVERY 10 DAYS Historical ProviderMD Active DULoxetine (Cymbalta) [address] capsule [id number] Take 1 capsule (60 mg) by mouth once daily. Historical ProviderMD Active Eliquis 5 mg tablet [id number] Take 1 tablet (5 mg) by mouth 2 times a day. Historical ProviderMD Active ergocalciferol (Vitamin D-2) 1250 mcg (50,000 units) capsule [id number] Take 1 capsule (1,250 mcg) by mouth. Historical ProviderMD Active fenofibrate (Tricor) 54 mg tablet [id number] Take 1 tablet (54 mg) by mouth once daily. Historical ProviderMD Active furosemide (Lasix) 40 mg tablet [id number] Take 1 tablet (40 mg) by mouth. Historical ProviderMD Active glimepiride (Amaryl) 4 mg tablet [id number] Take 1 tablet (4 mg) by mouth early in the morning.. Patient not taking: Reported on 08/07/2024 Historical ProviderMD Active glipiZIDE (Glucotrol) 5 mg tablet [id number] Take 1 tablet (5 mg) by mouth. Patient not taking: Reported on 08/07/2024 Historical MD Lacey Active HumuLIN R U-500, Conc, Insulin 500 unit/mL CONCENTRATED injection [id number] INJECT 75 UNITS DAILY VIA CONTINUOUS SUBCUTANEOUS INFUSION. DISCARD VIAL AFTER 40 DAYS Patient not taking: Reported on 08/07/2024 Historical MD Lacey Active Jardiance 25 mg [id number] Take 1 tablet (25 mg) by mouth once daily. Historical ProviderMD Active levothyroxine (Synthroid, Levoxyl) 112 mcg tablet [id number] Take 1 tablet (112 mcg) by mouth once daily. Gloria ProviderMD Active lisinopril 40 mg tablet [id number] Take 1 tablet (40 mg) by mouth once daily. Gloria Rahman MD Active metFORMIN (Glucophage) 500 mg tablet [id number] Take 1 tablet (500 mg) by mouth 2 times daily (morning and late afternoon). Gloria ProviderMD Active metoprolol succinate XL (Toprol-XL) 100 mg 24 hr tablet [id number] TAKE 1 TABLET BY MOUTH DAILY for heart Historical ProviderMD Active Mucinex DM 60-1,200 mg tablet extended release 12 hr [id number] Take 1 tablet by mouth every 12 hours. Historical MD Lacey Active oxyCODONE-acetaminophen (Percocet) 5-325 mg tablet [id number] Take 1 tablet by mouth 2 times a day as needed. Patient not taking: Reported on 08/07/2024 Gloria Rahman MD Active pantoprazole (ProtoNix) 40 mg EC tablet [id number] Take 1 tablet (40 mg) by mouth. Historical ProviderMD Active potassium citrate CR (Urocit-K-10) 10 mEq ER tablet [id number] Take 1 tablet (10 mEq) by mouth twicea day. Historical MD Lacey Active predniSONE (Deltasone) 20 mg tablet [id number] Take 0.5 tablets (10 mg) by mouth early in the morning.. Gloria Rahman MD Active predniSONE (Deltasone) 20 mg tablet [id number] Take 2 tablets (40 mg) by mouth once daily. Patient not taking: Reported on 08/07/2024 Rosalino Padron MD Active predniSONE (Deltasone) 5 mg tablet [id number] Take 4 tablets (20 mg) by mouth once daily for 30 days, THEN 3 tablets (15 mg) once daily for 30 days, THEN 2 tablets (10 mg) once daily for 30 days, THEN1 tablet (5 mg) once daily for 14 days. Rosalino Padron MD Active spironolactone (Aldactone) 50 mg tablet [id number] Take 1 tablet (50 mg) by mouth once daily. Patient not taking: Reported on 08/07/2024 Historical MD Lacey Active tamsulosin (Flomax) 0.4 mg 24 hr capsule [id number] Take 1 capsule (0.4 mg) by mouth once daily. Historical Provider, Active traMADol (Ultram) 50 mg tablet [id number] Take 1 tablet (50 mg) by mouth. [...] Rosalino Padron MD 08/28/2024 documented in this [facility] Work Phone: 1(789) 720-982106-17-2025 Evaluation note* Diagnosis Onset Date Resolution Status [...] exposed acute November 9:41am Current use of group home anticoagulation acute December 17, 2024 9:41am Diabetes mellitus, type II acute December 17, 2024 9:41am Paroxysmal atrial fibrillation acute December 17, 2024 9:41am Chronic respiratory failure chronic December 17, 2024 9:41am Chronic respiratory failure with hypoxia chronic December 17, 2024 9:41am [facility] Work Phone: 1(238) 630-556605-19-2025 Evaluation note* Diagnosis Onset Date Resolution Status [...] 16, 2024 9:59am Insulin pump titration deleted [facility] 2024 9:59am Chronic respiratory failure with hypoxia [...] 2024 8:20pm Acute right MCA stroke deleted [facility] 2024 8:20pm Ischemic cerebrovascular accident (CVA) resolved [...] 11:54am Sepsis resolved November 26 025 11:54am [facility] Work Phone: 1([phone]) 436-621605-15-2025 Radiology Diagnostic study [facility]05-09-2025 History of Present illness Narrative* Rosalino Padron MD - 08/07/2024 2:30 PM EDT Images from the original note were not included. Department of Medicine Division of Pulmonary, Critical Care, and Sleep Medicine Consultation [address] [facility] Clinic[facility] Patient was referred by his PCP (Dr. [...] surgery total pulmonary decortication in 2015 at [facility]. He was hospitalized in [place] from 03/02-03/04/2024 for acute hypoxic respiratory failure. [...] Review Audit Reviewed by Rivka Gerardo MA (Health And Social Care Teacher) on 08/07/24 at 1413 Medication Order Taking? Sig Documenting Provider Last Dose Status albuterol 90 mcg/actuation inhaler [id number] Yes INHALE 2 PUFFS BY MOUTH EVERY 4 HOURS NEEDED FOR SHORTNESS OF BREATH OR WHEEZING Historical ProviderMD Active amLODIPine (Norvasc) 5 mg tablet [id number] Yes Take 1 tablet (5 mg) by mouth once daily. GloriaProMD frank Active aspirin 325 mg tablet [id number] Yes Take 1 tablet (325 mg) by mouth once daily. Historical ProviderMD Active atorvastatin (Lipitor) 80 mg tablet [id number] Yes Take 1 tablet (80 mg) by mouth once daily at bedtime. Historical ProviderMD Active betamethasone, augmented, (Diprolene) 0.05 % lotion [id number] APPLY TO RASH ON THE TRUNK OR SCALP 1-2 TIMES DAILY NEEDED Historical ProviderMD Active bismuth subsalicylate (Pepto Bismol) 262 mg chewable tablet [id number] CHEW AND SWALLOW 2 TABLETS BYMOUTH 3 TIMES A DAY for 2 weeks. max 16 tablets per 24 hours Patient not taking: Reported on 08/07/2024 Historical ProviderMD Active Brilinta 90 mg tablet [id number] Yes 1 tablet (90 mg). Historical ProviderMD Active busPIRone (Buspar) 10 mg tablet [id number] Yes Take 1 tablet (10 mg) by mouth 3 times a day. Historical ProviderMD Active clopidogrel (Plavix) 75 mg tablet [id number] Take 1 tablet (75 mg) by mouth early in the morning.. Historical ProviderMD Active dapagliflozin propanediol (Farxiga) 5 mg [id number] Take 1 tablet (5 mg) by mouth once daily. Historical ProviderMD Active Dexcom G6 Sensor device [id number] Yes USE DIRECTED FOR CONTINUOUS BLOOD GLUCOSE MONITORING, CHANGE SENSOR EVERY 10 DAYS Historical ProviderMD Active DULoxetine (Cymbalta) [address] capsule [id number] Yes Take 1 capsule (60 mg) by mouth once daily. Historical ProviderMD Active Eliquis 5 mg tablet [id number] Yes Take 1 tablet (5 mg) by mouth 2 times a day. Historical ProviderMD Active ergocalciferol (Vitamin D-2) 1250 mcg (50,000 units) capsule [id number] Take 1 capsule (1,250 mcg) by mouth. Historical ProviderMD Active fenofibrate (Tricor) 54 mg tablet [id number] Yes Take 1 tablet (54 mg) by mouth once daily. Historical ProviderMD Active furosemide (Lasix) 40 mg tablet [id number] Yes Take 1 tablet (40 mg) by mouth. Gloria Rahman MD Active glimepiride (Amaryl) 4 mg tablet [id number] Take 1 tablet (4 mg) by mouth early in the morning.. Patient not taking: Reported on 08/07/2024 Gloria Rahman MD Active glipiZIDE (Glucotrol) 5 mg tablet [id number] Take 1 tablet (5 mg) by mouth. Patient not taking: Reported on 08/07/2024 Gloria Rahman MD Active HumuLIN R U-500, Conc, Insulin 500 unit/mL CONCENTRATED injection [id number] INJECT 75 UNITS DAILY VIA CONTINUOUS SUBCUTANEOUS INFUSION. DISCARD VIAL AFTER 40 DAYS Patient not taking: Reported on 08/07/2024 Gloria Rahman MD Active Jardiance 25 mg [id number] Yes Take 1 tablet (25 mg) by mouth once daily. Gloria Rahman MD Active levothyroxine (Synthroid, Levoxyl) 112 mcg tablet [id number] Yes Take 1 tablet (112 mcg) by mouth once daily. Gloria Rahman MD Active lisinopril 40 mg tablet [id number] Yes Take 1 tablet (40 mg) by mouth once daily. Historical ProviderMD Active metFORMIN (Glucophage) 500 mg tablet [id number] Take 1 tablet (500 mg) by mouth 2 times daily (morning and late afternoon). Historical MD Lacey Active metoprolol succinate XL (Toprol-XL) 100 mg 24 hr tablet [id number] Yes TAKE 1 TABLET BY MOUTH DAILY for heart Historical MD Lacey Active Mucinex DM 60-1,200 mg tablet extended release 12 hr [id number] Take 1 tablet by mouth every 12 hours. Gloria Rahman MD Active oxyCODONE-acetaminophen (Percocet) 5-325 mg tablet [id number] Take 1 tablet by mouth 2 times a day as needed. Patient not taking: Reported on 08/07/2024 Gloria Rahman MD Active pantoprazole (ProtoNix) 40 mg EC tablet [id number] Yes Take 1 tablet (40 mg) by mouth. Gloria ProviderMD Active potassium citrate CR (Urocit-K-10) 10 mEq ER tablet [id number] Take 1 tablet (10 mEq) by mouth twicea day. Historical ProviderMD Active predniSONE (Deltasone) 20 mg tablet [id number] Take 0.5 tablets (10 mg) by mouth early in the morning.. Historical Provider, Active predniSONE (Deltasone) 20 mg tablet [id number] Take 2 tablets (40 mg) by mouth once daily. Patient not taking: Reported on 08/07/2024 Rosalino Padron MD Active spironolactone (Aldactone) 50 mg tablet [id number] Take 1 tablet (50 mg) by mouth once daily. Patient not taking: Reported on 08/07/2024 Historical Provider, Active tamsulosin (Flomax) 0.4 mg 24 hr capsule [id number] Yes Take 1 capsule (0.4 mg) by mouth once daily.Historical Provider, Active traMADol (Ultram) 50 mg tablet [id number] Take 1 tablet (50 mg) by mouth. [...] Rosalino Padron MD 08/07/2024 documented in this [facility] Work Phone: 1(398) 480-872205-09-2025 Instructions* Patient Instructions* oRsalino Padron MD - 08/07/2024 2:30 PM EDT [...] a breathing or a walking test Call [phone] to schedule EKG's, Echocardiograms and Cardiopulmonary Stress Tests. Call [phone] to schedule Radiology tests such as Nuclear Medicine Stress Tests, CT Scans, and MRI's. Should you have any questions Please Call our pulmonary nurse Linda Marie at [phone] or my catalog library assistant Puneet Leone at [phone] documented in this [facility] Work Phone: [phone] Evaluation note* Diagnosis Onset Date Resolution Status [...] loss inactive November 03, 2 025 12:48pm [facility] Work Phone: [phone] Evaluation note* Diagnosis Onset Date Resolution Status [...] factor positive chronic November 25, 2024 12:33pm [facility] Work Phone: [phone] 248-858105-08-2025 Evaluation note* Diagnosis Onset Date Resolution Status [...] September 16 9:59am Insulin pump titration chronic [facility] 2024 9:59am Microalbuminuria due to type 2 diabetes mellitus chronic September 16 9:59am Presence of insulin pump chronic September 16, 2024 9:59am Essential (primary) hypertension inactive September 16, 2024 9:59am Hypothyroidism inactive September 16, 2024 9:59am Obesity inactive September 16 9:59am Acute right MCA stroke acute [facility] 2024 8:20pm Hyperlipidemia acute September 26, 2024 [...] 11:54am Sepsis acute November 26, 025 11:54am [facility] Work Phone: 1([phone]) 189-194004-07-2025 Evaluation note* Diagnosis Onset Date Resolution Status [...] 8:20pm Hyperlipidemia acute October 12, 2024 10:46am [facility] Work Phone: [phone]) 360-401404-07-2025 Evaluation note* Diagnosis Onset Date Resolution Status [...] 2024 10:46am Fatigue noneactive October 12 10:46am [facility] Work Phone: [phone]) [phone] Evaluation note* Diagnosis Onset Date Resolution Status [...] fibrillation inact nicole October 27, 2024 10:16am [facility] Work Phone: [phone] Evaluation note* Diagnosis Onset Date Resolution Status [...] loss inactive November 03, 2 025 12:48pm [facility] Work Phone: [phone] History of Present illness Narrative* Rosalino Padron MD - 06/26/2024 11:30 AM EDT Images from the original note were not included. Department of Medicine Division of Pulmonary, Critical Care, and Sleep Medicine Consultation [address] [facility] Patient was referred by his PCP (Dr. [...] surgery total pulmonary decortication in 2015 at [facility]. He was hospitalized in [place] from 03/02-03/04/2024 for acute hypoxic respiratory failure. [...] Review Audit Reviewed by Suly Johnston MA (Health And Social Care Teacher) on 06/26/24 at 1224 Medication Order Taking? Sig Documenting Provider Last Dose Status albuterol 90 mcg/actuation inhaler [id number] Yes INHALE 2 PUFFS BY MOUTH EVERY 4 HOURS NEEDED FOR SHORTNESS OF BREATH OR WHEEZING Historical ProviderMD Active amLODIPine (Norvasc) 5 mg tablet [id number] Take 1 tablet (5 mg) by mouth once daily. Historical ProviderMD Active aspirin 325 mg tablet [id number] Take 1 tablet (325 mg) by mouth once daily. Historical ProviderLORNActive atorvastatin (Lipitor) 80 mg tablet [id number] Take 1 tablet (80 mg) by mouth once daily at bedtime.Historical ProviderMD Active betamethasone, augmented, (Diprolene) 0.05 % lotion [id number] Yes APPLY TO RASH ON THE TRUNK OR SCALP 1-2 TIMES DAILY NEEDED Historical ProviderMD Active bismuth subsalicylate (Pepto Bismol) 262 mg chewable tablet [id number] Yes CHEW AND SWALLOW 2 TABLETS BY MOUTH 3 TIMES A DAY for 2 weeks. max 16 tablets per 24 hours Historical ProviderMD Active Brilinta 90 mg tablet [id number] Yes 1 tablet (90 mg). Historical ProviderMD Active busPIRone (Buspar) 10 mg tablet [id number] Take 1 tablet (10 mg) by mouth 3 times a day. Gloria Rahman MD Active clopidogrel (Plavix) 75 mg tablet [id number] Yes Take 1 tablet (75 mg) by mouth early in the morning.. Gloria Rahman MD Active dapagliflozin propanediol (Farxiga) 5 mg [id number] Yes Take 1 tablet (5 mg) by mouth once daily. Gloria Rahman MD Active Dexcom G6 Sensor device [id number] Yes USE DIRECTED FOR CONTINUOUS BLOOD GLUCOSE MONITORING, CHANGE SENSOR EVERY 10 DAYS Historical MD Lacey Active DULoxetine (Cymbalta) [address] capsule [id number] Take 1 capsule (60 mg) by mouth once daily. Gloria Rahman MD Active Eliquis 5 mg tablet [id number] Take 1 tablet (5 mg) by mouth 2 times a day. Gloria Rahman MD Active ergocalciferol (Vitamin D-2) 1250 mcg (50,000 units) capsule [id number] Yes Take 1 capsule (1,250 mcg) by mouth. Historical ProviderMD Active fenofibrate (Tricor) 54 mg tablet [id number] Take 1 tablet (54 mg) by mouth once daily. Historical MD Lacey Active furosemide (Lasix) 40 mg tablet [id number] Yes Take 1 tablet (40 mg) by mouth. Historical MD Lacey Active glimepiride (Amaryl) 4 mg tablet [id number] Yes Take 1 tablet (4 mg) by mouth early in the morning..Gloria Rahman MD Active glipiZIDE (Glucotrol) 5 mg tablet [id number] Yes Take 1 tablet (5 mg) by mouth. Historical ProviderMD Active HumuLIN R U-500, Conc, Insulin 500 unit/mL CONCENTRATED injection [id number] Yes INJECT 75 UNITS DAILY VIA CONTINUOUS SUBCUTANEOUS INFUSION. DISCARD VIAL AFTER 40 DAYS Historical MD Lacey Active Jardiance 25 mg [id number] Take 1 tablet (25 mg) by mouth once daily. Historical ProviderMD Active levothyroxine (Synthroid, Levoxyl) 112 mcg tablet [id number] Take 1 tablet (112 mcg) by mouth once daily. Gloria Rahman MD Active lisinopril 40 mg tablet [id number] Take 1 tablet (40 mg) by mouth once daily. Historical ProviderMD Active metFORMIN (Glucophage) 500 mg tablet [id number] Take 1 tablet (500 mg) by mouth 2 times daily (morning and late afternoon). Historical ProviderMD Active metoprolol succinate XL (Toprol-XL) 100 mg 24 hr tablet [id number] TAKE 1 TABLET BY MOUTH DAILY for heart Historical ProviderMD Active Mucinex DM 60-1,200 mg tablet extended release 12 hr [id number] Yes Take 1 tablet by mouth every 12 hours. Historical ProviderMD Active oxyCODONE-acetaminophen (Percocet) 5-325 mg tablet [id number] Take 1 tablet by mouth 2 times a day as needed. Historical ProviderMD Active pantoprazole (ProtoNix) 40 mg EC tablet [id number] Yes Take 1 tablet (40 mg) by mouth. Historical ProviderMD Active potassium citrate CR (Urocit-K-10) 10 mEq ER tablet [id number] Yes Take 1 tablet (10 mEq) by mouth twice a day. Historical ProviderMD Active predniSONE (Deltasone) 20 mg tablet [id number] Yes Take 0.5 tablets (10 mg) by mouth early in the morning.. Historical ProviderMD Active spironolactone (Aldactone) 50 mg tablet [id number] Yes Take 1 tablet (50 mg) by mouth once daily. Historical ProviderMD Active tamsulosin (Flomax) 0.4 mg 24 hr capsule [id number] Take 1 capsule (0.4 mg) by mouth once daily. Historical ProviderMD Active traMADol (Ultram) 50 mg tablet [id number] Yes Take 1 tablet (50 mg) by [...] ab panel ordered on 06/26/2024. -will discuss ND on follow up. -Discussed antifibrotic therapy. Not [...] Rosalino Padron MD 06/26/2024 documented in this [facility] Work Phone: [phone]) [phone] Instructions* Patient Instructions* Rosalino Padron MD - [...] mold. You can contact [employer] in [place], phone number is [phone] for a home inspection We will see you back in clinic in 1-2 months/weeks For scheduling purposes: Call [phone] to schedule a breathing or a walking test Call [phone] to schedule EKG's, Echocardiograms and Cardiopulmonary Stress Tests. Call [phone] to schedule Radiology tests such as Nuclear Medicine Stress Tests, CT Scans, and MRI's. Should you have any questions Please Call our pulmonary nurse Linda Marie at [phone] or my catalog library assistant Puneet Leone at [phone] documented in this [facility] Work Phone: [phone]) 306-429203-06-2025 Evaluation note* Diagnosis Onset Date Resolution Status [...] apnea) chroni c September 26, 2024 5:17pm [facility] Work Phone: [phone] Evaluation note* Diagnosis Onset Date Resolution Status [...] apnea) chroni c September 26, 2024 8:20pm [facility] Work Phone: [phone]) 573-887502-20-2025 Evaluation note* Diagnosis Onset Date Resolution Status [...] 2024 11:16am Fatigue noneactive September 15 12:53pm [facility] Work Phone: [phone] Telephone encounter Note* Telephone Encounter - Oziel [...] 1 year. Sooner prn. MD Jose Antonio [facility] Work Phone: [phone] Miscellaneous Notes* Telephone Encounter - Oziel Culp [...] prn. MD Jose Antonio documented in this [facility]02-05-2025 Note* Perioperative Nursing Note - Mendel River RN - 05/06/2024 4:02 PM EST Phase 2 care completed. Iv removed and dc instructions provided. Will dc to home with family Right groin site benign and neuro unchanged NIH 0 [id number] Note* Perioperative Nursing Note - Mendel River RN - 05/06/2024 4:02 PM EST Phase 2 care completed. Iv removed and dc instructions provided. Will dc to home with family Right groin site benign and neuro unchanged NIH 0 [facility] CenterAuhmtr03-42-3577 Miscellaneous Notes* Perioperative Nursing Note - Mendel River RN - 05/06/2024 4:02 PM EST Phase 2 care completed. Iv removed and dc instructions provided. Will dc to home with family Right groin site benign and neuro unchanged NIH 0 documented in this [facility]02-05-2025 NotePatient: Krunal Leos Procedure Summary Date: 05/06/24 Room / Location: [facility] Special Procedures Anesthesia Start: 124 Anesthesia [...] discharged once all PACU criteria has been met.[facility] [id number] NotePatient: Krunal Leos Procedure Summary Date: 05/06/24 Room / Location: [facility] Special Procedures Anesthesia Start: 1243 Anesthesia [...] Patient reports no pain in PACU (G2149) [facility] Anesthesiology Smoking Abstinence The patient is [...] Allowed opportunity for questions and acknowledgement of understanding.[facility]02-05-2025 Nurse Note* Se Hensley RN - 05/06/2024 1:47 PM EST Patient arrived from home, Dr. Culp in to speak with the patient regarding DCA with possible carotid stenting, consent obtained. Patient was placed supine on exam table prepped and draped in sterile fashion. Telemetry monitors placed, sedation provided by CUSTOMER ASSOCIATE. Patient tolerated procedure well. Transfer to ICU. [facility] CenterSqiyqk45-78-9474 Nurse Note* Se Hensley RN - 05/06/2024 1:47 PM EST Patient arrived from home, Dr. Jose Antonio schilling to speak with the patient regarding DCA with possible carotid stenting, consent obtained. Patient was placed supine on exam table prepped and draped in sterile fashion. Telemetry monitors placed, sedation provided by CUSTOMER ASSOCIATE. Patient tolerated procedure well. Transfer to ICU. * Se Hensley RN - 05/05/2024 1:45 PM EST Report given to IR rn, neuro assessment completed along with groin site check. documented in this [facility]02-05-2025 Consult note* Rianna Yan MD - [...] PLAN: 1. Obtain P2 Y12 study 2. Grandin Brilinta 90 mg twice daily x 30 [...] 10 to 15 minutes. Was hospitalized at [place] and had Plavix added at that time. [...] Symptoms resolved. He was again hospitalized at [facility]. No medicationchanges were made. April 2024: [...] care Cc: Mey Loya APRN - * [facility] Phone: [phone] Consult note* Rianna Yan MD - 05/06/2024 [...] PLAN: 1. Obtain P2 Y12 study 2. Grandin Brilinta 90 mg twice daily x 30 [...] 10 to 15 minutes. Was hospitalized at [place] and had Plavix added at that time. [...] Symptoms resolved. He was again hospitalized at [facility]. No medicationchanges were made. April 2024: [...] Loya APRN - * documented in this [facility]02-05-2025 NoteIVR History & Physical Inpatient consult [...] Cardiac murmur - managed by cardiology in [place] - BP controlled and HR controlled - [...] no stents #) Pulmonary fibrosis, Oxygen dependence, IKANNA - followed by pulmonology, 1-2 week appointments [...] for gait problem. Skin (more content not included)...[facility]02-05-2025 Note Patient: Krunal Leos Procedure Information Date/Time: 02/05/25 1000 Procedure: IR ANGIOGRAM CEREBRAL W POSSIBLE INTERVENTION Location: [facility] Special Procedures Relevant Problems Anesthesia (+) History of non-ST elevation myocardial infarction (NSTEMI) (+) Obstructive sleep apnea syndrome Cardio (+) Congestive heart failure (HCC) (+) Hyperlipidemia (+) Paroxysmal atrial fibrillation (HCC) (+) Primary hypertension (+) Stenosis of carotid artery Endo (+) Hypothyroidism (+) 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 with hyperglycemia (HCC) (+) Type II diabetes mellitus with complication (CMS/HCC) ([facility]) /Renal (+) Benign prostatic hyperplasia with urinary obstruction (+) Calculus of kidney (+) Chronic kidney disease (+) Congenital cystic kidney disease Neuro/Psych (+) Cerebrovascular accident (CVA), unspecified mechanism ([facility]) (+) Ischemic cerebrovascular accident (CVA) ([facility]) Pulmonary (+) Obstructive sleep apnea syndrome Cardiovascular (+) Stenosis of carotid artery Other (+) Hodgkin lymphoma ([facility]) Past Medical History: Past Medical History: No date: A-fib (CMS/HCC) ([facility]) No date: Bilateral carotid artery stenosis No date: BPH (benign prostatic hyperplasia) No date: CHF (congestive heart failure) ([facility]) No date: Chronic idiopathic pulmonary fibrosis ([facility]) No date: CVA (cerebral vascular accident) ([facility]) No date: DM (diabetes mellitus), type 2 ([facility]) No date: HTN (hypertension) No date: Hyperlipidemia [...] no echo on file, yearly appointments with dinkey brakeman in [place] DM2 - on insulin pump, has basal [...] infarct, age indeterminate Equipment Requests: Additional Equipment [facility]-04-[facility] Nurse Note* Se Hensley RN - 05/05/2024 1:45 PM EST Report given to MARIO edwards, neuro assessment completed along with groin site check. [facility] [id number] History of Present illness Narrative* Suzy Jauregui [...] Provider, Continuous Glucose Sensor (Dexcom G6 Sensor) [facility] Dexcom G6 Sensor [facility], USE DIRECTED FOR CONTINUOUS BLOOD GLUCOSE [...] Stallworth MD ergocalciferol (Vitamin D2) 1.25 MG (31373 UT) capsule Take 1 capsule by mouth [...] 2023. 10/06/23 01/06/24 Harmeet Stallworth MD HYDROcodone-acetaminophen ([place]) 5-325 MG tablet Take 1 tablet by [...] imaging and most recent CT from [facility]) and not his right carotid artery. [...] Juventino, MD Vascular Surgery documented in this [facility]01-25-2025 [facility]01-23-2025 Note* Care Coordination - Jessica Clifton RN [...] "Main Entrance" which islocated at [address] Turn onto [address]" from [address]. You may use [employer]. Each patient to receive one validation ticket for [employer]. It is also possible to park in the Main Parking Garage. Proceed to bridge into hospital and check in with Same Day Surgery. [facility] CenterBqnwhf70-01-3092 NoteSpoke with patient. Reviewed instructions for procedure. [...] Entrance" which is located at [address] Turn onto "[address]" from [employer]. You may use [employer] Park[employer]. Each patient to receive one validation ticket for [employer]. It is also possible to park in the Main Parking Garage. Proceed to bridge into hospital and check in with Same Day Surgery.[facility]01-23-2025 Miscellaneous Notes* Care Coordination - Jessica [...] at [address]" from [employer]. You may use [employer]. Each patient to receive one validation ticket for [employer]. It is also possible to park in the Main Parking Garage. Proceed to bridge into hospital and check in with Same Day Surgery. documented in this [facility]01-22-2025 Evaluation note* Diagnosis Onset Date Resolution [...] 2:27pm Hyperlipidemia acute August 17, 2024 11:16am [facility] Work Phone: [phone]) 668-679101-16-2025 Evaluation note* Diagnosis Onset Date Resolution Status Admit Date CKD (chronic kidney disease) chronic April 16, 2024 9:21am Diabetes chronic April 16, 2024 9:21am Essential (primary) hypertension chronic April 16 9:21am Hypothyroidism chronic April 162024 9:21am Insulin pump titration chronic [facility] 2024 9:21am Obesity chronic April 16, 2024 [...] 1:22pm Fatigue noneactive August 06, 2024 2:27pm [facility] Work Phone: [phone]) [phone] [facility]01-12-2025 Evaluation note* Diagnosis Onset Date Resolution [...] April 162024 9:21am Insulin pump titration chronic [facility] 2024 9:21am Obesity chronic April 16, 2024 [...] 1:22pm Fatigue noneactive August 06, 2024 2:27pm [facility] Work Phone: 1(357) 420-966212-27-2024 [facility]12-04-2024 [facility]11-13-2024 Telephone encounter Note* Telephone Encounter - DEJUAN Mak CNP - 02/12/2024 10:29 AM EST Notes and imaging reviewed with Dr. Culp. The left internal carotid artery has approximately 80% stenosis of the left internal carotid artery. [facility] the left internal carotid artery. The patient will need to continue aspirin 81 mg daily. Five days prior to surgery he should hold Eliquis. He will start Plavix 75mg daily 5 days prior to procedure in addition to his aspirin 81 mg. Pending the results of angiogram we will determine when to resume Eliquis. [employer] Work Phone: [phone]) 142-183211-13-2024 Miscellaneous Notes* Telephone Encounter - DEJUAN Mka CNP - 02/12/2024 10:29 AM EST I'll [...] Name of caller: Megan Contact phone number: [phone] Relationship to Patient: care team amanda Provider: Jose Antonio Practice: Endovascular Chief Complaint/Reason for Call: please send all lab work from September to fax [phone] [facility] Best time of day caller can be reached: any Patient advised that office/PCP has 24-48 business hours to return their call: No documented in this [facility]11-13-2024 Miscellaneous Notes* Telephone Encounter - DEJUAN [...] Name of caller: Megan Contact phone number: [phone] Relationship to Patient: care team amanda Provider: Jose Antonio Practice: Endovascular Chief Complaint/Reason for Call: please send all lab work from September to fax [phone] [facility] Best time of day caller can be reached: any Patient advised that office/PCP has 24-48 business hours to return their call: No documented in this [facility]11-13-2024 Telephone encounter Note* Telephone Encounter - Lisa Sandoval - 02/12/2024 9:13 AM EST This patient left a voicemail returning a call regarding his test results with Dr. Hutton Please advise:) [facility] CenterOmoonp94-43-2705 Telephone encounter Note* Telephone Encounter - Ena Enriquez - 02/06/2024 7:52 AM EST Name of caller: Megan Contact phone number: [phone] Relationship to Patient: care team amanda Provider: Jose Antonio Practice: Endovascular Chief Complaint/Reason for Call: please send all lab work from September to fax [phone] [facility] Best time of day caller can be reached: any Patient advised that office/PCP has 24-48 business hours to return their call: No [facility] CenterPrzxvy91-58-3731 [facility]10-07-2024 History of Present illness Narrative* Oziel Culp MD - 01/06/2024 11:00 AM EDT History of Present Illness: 58 yo man here for fu stroke and bilateral ICA stenosis. He originally presented 09/2023 for left hemiparesis and was transferred to [facility] from [facility]. He was found to have [...] episode of left hemiparesis. He went to [facility] and was found to have increased stroke burden of the right hemisphere. Vascular surgery wasconsulted and no surgical procedure was recommended. He had a 3rd event of left hemiparesis the following week and a CT was done at [place] [facility]. At that time clopidogrel was added (in addition to ASA and Eliquis). The patient returned to normal and was discharged from the ED to home. 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 He is anonsmoker. He does report [...] 2023., Disp: 30 tablet, Rfl: 0 HYDROcodone-acetaminophen ([place]) 5-325 MG tablet, Take 1 tablet by [...] , Rfl: ergocalciferol (Vitamin D2) 1.25 MG (62046 UT) capsule, Take 1 capsule by mouth [...] and clopidogrel I have requested images from [facility] to evaluate distribution of new ischemic [...] Smoking cessation counseling: Yes documented in this [facility]07-06-2024 Plan of care note* Care Plan [...] address these barriers include . Patient discharged. [facility] CenterFkadfh14-14-6052 Miscellaneous Notes* Care Plan - Dariana Lawrence [...] Limits Permission given to speak with patient service liaison representative/caregiver as indicated: Confirmation of Payer with patient/family: Yes Payer Name: [employer] : No Confirmation of Primary Care Physician: [...] 0 x 3. He was transferred from [facility] with CVA/TIA. Vascular and Neurology have been consulted. Needs carotid US. Anticipate home with no needs when stable.. . Gris Keith RN documented in this encounterSKettering Health Main CampusRslmvo28-78-6308 Nurse Note* Dariana Lawrence RN - 10/05/2023 2:38 PM EDT Patient discharged at this time. Patient alert and oriented, reviewed discharge instructions with patient and daughter. PIV removed, tele removed. [facility] CenterTivbpe89-16-9022 Nurse Note* Dariana Lawrence RN - 10/05/2023 2:38 PM EDT Patient discharged at this time. Patient alert and oriented, reviewed discharge instructions with patient and daughter. PIV removed, tele removed. * Dalila Helms RN - 10/03/2023 7:30 PM EDT Pt arrived from [facility], ambulated to bed, NIH scale 1, pt A&O x 4, denies numbness ortingling, denies headache or dizziness, denies needs at this time, call light and belongings withinreach, will monitor. documented in this [facility]07-06-2024 Hospital course Narrative* Harmeet Stallworth MD - [...] a few days ago was admitted to [facility] after he had left facial weakness [...] level of the V3 extending beyond the tzqek-za-ldmc with reconstitution. Atherosclerosis of the cavernous and [...] Complexity: follow up within 7-14 calendar days (45551) [] Severe Complexity: follow up within 7 calendar days (00252) FOLLOW UP TESTING, PENDING RESULTS OR REFERRALS AT TRANSITIONAL CARE VISIT: [] Yes [] No PENDING STUDIES: DISPOSITION: Home FACILITY/HOME CARE AGENCY NAME: Follow up with Suzy Jauregui MD [address] [facility] [address] [facility] [phone] Call Call your surgeon in 2 days & schedule follow-up, as needed or follow-up for ultrasound survaliance Oziel Culp MD [address] [facility] [address] Schedule an appointment as soon as possible for a visit in 1 week(s) Pamela Morris MD [address] [facility] [address] [facility] [phone] Schedule an appointment as soon as possible for a visit in 1 week(s) Radha Khan [address] [facility] [phone] Schedule an appointment as soon [...] MD 10/05/2023, 1:36 PM documented in this [facility]07-06-2024 History of Present illness Narrative* Harmeet Stallworth MD - 10/05/2023 10:16 AM EDT Hospitalist Progress Note 10/05/2023 Subjective: Admit Date: 10/03/2023 PCP: RADHA KHAN Room#: W4-435/W4-435 A Brief Hospital course: Krunal Leos is a 58 y.o. male presenting with dizziness over the past 3 years however became more severe and more frequent a few days ago was admitted to [facility] after he had left facial weakness [...] level of the V3 extending beyond the tdcri-ki-xmec with reconstitution. Atherosclerosis of the cavernous and [...] Contact: Tia Leos Relation: Spouse Preferred language: Bermudian Milk Inspector needed? No Secondary Emergency Contact: Clarisse Chris Mobile Relation: Daughter Preferred language: Bermudian Milk Inspector needed? No Harmeet Stallworth MD Division of Hospitalist Medicine Inpatient Medical Services/[facility] * Brenna Carrion - 10/05/2023 8:22 AM EDT Nutrition rescreen completed. Chart reviewed. Patient to be monitored and followed by the diet copier technician. Dietitian available upon request. * Fran Lewis PT - 10/04/2023 9:32 AM EDT Images from the original note were not included. PHYSICAL THERAPY [facility] Initial Evaluation Name/MRN: Krunal Leos ([id number]) Evaluation Date: 10/04/2023 Date of : 1965 [...] , dtr, son-in-law. Two step entry to [employer] home. Pt drives, works at [employer]. Son-in-law mows lawn and often orders groceries [...] 0914 Time Out 0931 Minutes 17 Fran eLwis PT Patient's Physical Therapy Plan of Care supervision is transferred to a [facility] Therapy Services Physical Therapist. Goals and/or treatment plan was established in collaboration with patient/family/other representatives. * Harmeet Stallworth MD - 10/04/2023 8:22 AM EDT Hospitalist Progress Note 10/04/2023 Subjective: Admit Date: 10/03/2023 PCP: RADHA KHAN Room#: W2-144/W1-032 A Brief Hospital course: Krunal Leos is a 58 y.o. male presenting with dizziness over the past 3 years however became more severe and more frequent a few days ago was admitted to [facility] after he had left facial weakness [...] level of the V3 extending beyond the bsjcn-qj-tylk with reconstitution. Atherosclerosis of the cavernous and [...] Contact: Tia Leos Relation: Spouse Preferred language: Bermudian Milk Inspector needed? No Secondary Emergency Contact: Clarisse Chris Mobile Relation: Daughter Preferred language: Bermudian Milk Inspector needed? No Harmeet Stallworth MD Division of Hospitalist Medicine Inpatient Medical Services/[facility] documented in this encounterSKettering Health Main [id number] Plan of care note* Care Plan - [...] to address these barriers include reorient frequently. [id number] Hospital Discharge instructions* Discharge Instructions* Nely Lambert [...] and the need for follow-up with a physician/INSURANCE CUSTOMER SERVICE SPECIALIST/PA after discharge. NELY LAMBERT RN on 10/04/23 [...] through Care Everywhere. * Recovery After Stroke (Bermudian) * Caring for a Loved One After a Stroke (Bermudian) * Stroke (Bermudian) documented in this [facility]07-05-2024 Note* Care Coordination - Gris Keith RN - 10/04/2023 11:19 AM EDT Care Managment Initial Assessment Date: 10/04/2023 Patient Name: Krunal Leos : 1965 Patient Information Source of Information: Patient Cognition/Language: WFL - Within Functional Limits Permission given to speak with patient service liaison representative/caregiver as indicated: Confirmation of Payer with patient/family: Yes Payer Name: Medical [place] : No Confirmation of Primary Care Physician: [...] 0 x 3. He was transferred from [facility] with CVA/TIA. Vascular and Neurology have been consulted. Needs carotid US. Anticipate home with no needs when stable.. . Gris Keith RN [facility]07-05-2024 Note* Care Coordination - Gris Keith RN - 10/04/2023 11:19 AM EDT Care Managment Initial Assessment Date: 10/04/2023 Patient Name: Krunal Leos : 1965 Patient Information Source of Information: Patient Cognition/Language: WFL - Within Functional Limits Permission given to speak with patient service liaison representative/caregiver as indicated: Confirmation of Payer with patient/family: Yes Payer Name: Medical [place]: No Confirmation of Primary Care Physician: Confirmed [...] 0 x 3. He was transferred from [facility] with CVA/TIA. Vascular and Neurology have been consulted. Needs carotid US. Anticipate home with no needs when stable.. . Gris Keith RN [facility] [id number] Consult note* Oziel Culp MD - 10/04/2023 10:09 AM EDTAssociated Order(s): Inpatient consult to Endovascular Neurology-- Inpatient consult to Endovascular Neurology-- Consult performed by: Mey Loya APRN - MANUFACTURING PLANT CONTROLLER Consult ordered by: Raphael Stone MD Reason [...] and symmetric in all four extremities. Coordination Cppohv-yc-djzk, rapid alternating movements and qdkw-ns-xchr normal bilaterally without dysmetria. Awake and alert [...] Team, ., . Personal review of: Imaging,Labs,ECHO},.},. [employer] Phone: 1(122) 934-809307-05-2024 Consult note* Oziel Culp MD - 10/04/2023 10:09 AM EDTAssociated Order(s): Inpatient consult to Endovascular Neurology-- Inpatient consult to Endovascular Neurology-- Consult performed by: Mey Loya APRN - MANUFACTURING PLANT CONTROLLER Consult ordered by: Raphael Stone MD Reason [...] and symmetric in all four extremities. Coordination Nxovlv-mf-vypf, rapid alternating movements and nqpe-kp-cozg normal bilaterally without dysmetria. Awake and alert [...] Name: Krunal Leos Patient : 1965 Acct: [id number] Date of Admission: 10/03/2023 Room/Bed: [facility] A PCP: RADHA KHAN History of Present Ilness: 58 y.o. is man with the chief Complaint of: transferred from [facility] evaluation of severe cerebrovascular disease presenting [...] Lasix 40 abd NS at 50 BP [facility] Patient feeling much better not [...] reflex present -X Palate:intact -XI Shoulder shrug: {INTACT/ABNORMAL:[id number]::"intact"Normal -XII Tongue movement: Normal Funduscopic Exam: normal, [...] 401 ms QTC Interval 453 ms P Slater 12 degrees QRS Slater -16 degrees T Wave Slater 16 degrees ND Interval 160 ms POCT glucose meter Collection [...] the left vertebral artery MRI brain from [facility] review ASSESSMENT / PLAN / SUGGESTIONS : [...] of Eliquis last night - follow up [facility] - further plans to follow [...] agreeable to the plan. documented in this [facility]07-05-2024 Consult note* Pili Connolly MD - 10/04/2023 8:31 AM EDTAssociated Order(s): IP CONSULT TO NEUROLOGY; IP CONSULT TO STROKE TEAM Images from the original note were not included. INITIAL CONSULT NOTE. STROKE SERVICE Patient Name: Krunal Leos Patient : 1965 Acct: [id number] Date of Admission: 10/03/2023 Room/Bed: [facility] A PCP: RADHA KHAN History of Present Ilness: 58 y.o. is man with the chief Complaint of: transferred from [facility] evaluation of severe cerebrovascular disease presenting [...] 5 mg, 5 mg, Oral, [facility], 5 mg at 10/04/23 0555 glucagon [...] 112 mcg, 112 mcg, Oral, [facility], Michael Rico MD, 112mcg at 10/04/23 0555 metoprolol succinate XL (Toprol-XL) 24 hr tablet 100 mg, 100 mg, Oral, Daily, Michael Rico MD pantoprazole (ProtoNix) EC tablet 40 mg, 40 mg, Oral, [facility], Michael Rico MD, 40 mg at 10/04/23 [...] reflex present -X Palate:intact -XI Shoulder shrug: {INTACT/ABNORMAL:[id number]::"intact"Normal -XII Tongue movement: Normal Funduscopic Exam: normal, [...] 401 ms QTC Interval 453 ms P Slater 12 degrees QRS Slater -16 degrees T Wave Slater 16 degrees ND Interval 160 ms POCT glucose meter Collection [...] the left vertebral artery MRI brain from [facility] review ASSESSMENT / PLAN / SUGGESTIONS : [...] to be involved in this patient's care. [facility] Phone: 1(357) 625-581507-05-2024 Consult note* Karol Melissa MD - 10/04/2023 [...] of Eliquis last night - follow up [facility] - further plans to follow [...] and he is agreeable to the plan. [facility] [id number] History and physical note* Michael Rico MD - 10/03/2023 9:26 PM EDT History Of Present Illness Krunal Leos is a 58 y.o. male presenting with dizziness over the past 3 years however became more severe and more frequent a few days ago was admitted to [facility] after he had left facial weakness [...] level of the V3 extending beyond the bymdw-nf-aams with reconstitution. Atherosclerosis of the cavernous and [...] consultation 3. Continue to monitor glycemic status. [employer]House Phone: 1(983) 134-353507-04-2024 History and physical note* Michael Rico MD - 10/03/2023 9:26 PM EDT History Of Present Illness Krunal Leos is a 58 y.o. male presenting with dizziness over the past 3 years however became more severe and more frequent a few days ago was admitted to [facility] after he had left facial weakness [...] level of the V3 extending beyond the iywmn-ib-ovaw with reconstitution. Atherosclerosis of the cavernous and [...] to monitor glycemic status. documented in this [facility]07-04-2024 Nurse Note* Dalila Helms RN - 10/03/2023 7:30 PM EDT Pt arrived from [facility], ambulated to bed, NIH scale 1, pt A&O x 4, denies numbness ortingling, denies headache or dizziness, denies needs at this time, call light [facility], will monitor. [facility] [id number] Note Discharge Instructions Thank you for allowing [facility] to assist you with your healthcare needs. [...] it can visit one of [facility] vaccine clinics. There are many vaccine clinic locations within the [facility]. For locations and available times, please visit https://gettheshot.coronavirus.[place].gov/. It is important to note that some COVID mobile vaccine clinics are held outdoors and may be canceled in rainy or stormy conditions. To learn more about pediatric vaccinations (ages 5-11), we invite you to visit the [facility] webpage. https://www.[facility].org/pages/0236-Dyktu-Mhfeiocdlis-Mrzetwnglb-Toiqa-Lgg stions.htmlTo learn more about the COVID-19 vaccine, we invite you to visit the CDC website for a list of frequently asked questions.https://www.cdc.gov/coronavirus/2019-ncov/vaccines/faq.html [employer] Patient Portal Access Instructions: Stay connected with your healthcare team and access your personal medical information anytime with the [employer] Patient Portal. Please follow the directions below to create your [employer] account: 1.Access the email account you provided upon registration to the hospital/physician office.2.Look for an invitation email from [facility].3.Open the email and access the invitation link: AcceptInvitation to [employer].4.Fill in the required goldberg to create your account. To access your account, visit [email or web address]. Click the blue button labeled "Access Patient [...] who you will allowto register on the [employer] Patient Portal for access to your information. You can also access the [email or web address] Patient Portal on the [employer] collin. Simply click on "Patient Portal" and then log into your account. If you would like to receive a full copy of your medical records, please contact the [facility] Medical Records Department by calling [phone], Saturday through Saturday between 8 a.m. and [...] Call your local pharmacy or go to [email or web address] to find one close to you.3.Make use of household items: Use cat litter or old coffee grounds to dispose medications if other options arenot available. Mix your drugs with these household products, seal them in an airtight container andthrow it into the garbage. Call [facility]: [phone] to be sure your drugs can be [...] that I should contact my do ctor. Patient/Dock Clerk Signature: Date/Time: Relationship to Patient: Witness Name/Signature: Date/Time: [facility]07-04-2024 Note Date of Service 10/03/23 Chief Complaint CVA Subjective 58-year-old male with past medical history significant for paroxysmal atrial fibrillation anticoagulated with apixaban, HTN, HLD, type 2 diabetes mellitus, hypothyroidism, KIANNA noncompliant with CPAP,HFpEF, chronic hypoxic respiratory failure, GERD, carotid stenosis, NSTEMI, Hodgkin's disease. Patient presented to [facility] emergency department on 10/01/2023 with increased weakness, [...] vertebral artery from the origin to the X7vwhipbg. Moderate stenosis of bilateral internal carotid arteries [...] Dobbs, vascular surgeon, who recommended transfer to [facility] for vascular surgery evaluation. [facility] transfer line called. Imaging reports faxed. [...] FLEMING on 10/03/2023 04:22 PM [facility]07-03-2024 Note ORIGINAL EXAMINATION: CTA OF THE [...] Sign Date: 10/03/2023 10:41:49 AM Ordering Provider: [facility]07-03-2024 Note ORIGINAL EXAMINATION: CTA OF THE [...] by: Christopher Pelaez DO Preliminary Report By: Alofnso Lorenzo Electronically signed By Christopher Pelaez DO Dictated Date: 10/02/2023 4:04:40 PM Prelim Date: 10/03/2023 10:41:06 AM Sign Date: 10/03/2023 10:41:06 AM [facility]ing [facility]* Exam Date Time Procedure Performing Provider Status 10/02/23 2:41 PM Echocardiogram, Adul t with Bubble Study- Auth (Verified) [facility] 07-03-2024 Nurse Progress note ABDULLAHI AGUIRRE APRN, CNP CONSULTED STEM FOR NEURO CONSULT 1319. ER REGISTRATION NOTIFIED. Digitally Signed by Nlely Marsh RN on 10/02/2023 01:28 PM [facility]07-03-2024 Evaluation + Plan noteExtracted from: Title:History [...] physician, and documenting in chart. [facility] 07-03-2024 Nurse Progress note ABDULLAHI AGUIRRE APRN, CNP CONSULTED STEM FOR NEURO CONSULT 1319. ER REGISTRATION NOTIFIED. Digitally Signed by Nelly Marsh RN on 10/02/2023 01:28 PM [facility]07-03-2024 Note Date of Service 10/02/2023 Chief Complaint states was at [facility], felt maybe a little weak, siad that [...] type 2 diabetes and hypothyroidism, presented to [facility] emergency department with the chief complaint of [...] AGUIRRE on 10/02/2023 12:50 PM [facility]07-03-2024 Note ORIGINAL HISTORY: TIA COMPARISON: Head [...] 8:38:30 AM Ordering Provider: [facility] 10-01-2023 Note ADDENDUM ADDENDUM: I agree [...] Sign Date: 10/01/2023 11:46:49 PM Ordering Provider: [facility] Note ORIGINAL EXAMINATION: ONE XRAY VIEW [...] Date: 10/01/2023 9:13:56 PM Ordering Provider: TITA [facility]07-02-2024 Note Sinus rhythm Atrial premature complexes Left ventricular hypertrophy Inferior infarct, old EKG interpretation is noted and agreed to in [facility]. The interpretation of this patient's EKG contributed directly to the care and management of this patient. Electronic Signature: TITA PARISH DO 10/01/2023 20:51:[address] [place] [address] 12-15-2023 Procedure [facility] 02-18-2023 Procedure [facility]05-05-[address] Ospina [facility] August 03, 2022 10:12am Note Date/Time August 03, 2022 10:12a m [facility] Medical Records Department [address] [place] [address] Discharge Summary 08/03/22 1011 MR#: [id number] Acct: [id number] Name: KRUNAL LEOS Rep #:[id number] : 1965 56 From: Eduin Ospina MD PCP: Dr. Radha Khan MD Status:ADM TALIB Location: [place] [address]- Providers Date of Admission: 08/01/22 Date of [...] PO DAILY@0800 03/30/20 blood-glucose meter,continuous (Dexcom G6 On Site Nurse) #1 ea 07/26/20 pen needle, diabetic 31 [...] Discharge Orders/Prescriptions Prescriptions: Continued (DME) Dexcom G6 On Site Nurse Misc See Rx Instructions .ROUTE .MEDSUPPLY Qty: [...] Self Care Charges/Coding Visit Charges Inpatient E&M: 22102 Disch Hosp >30min 08/03/22 1012 <Electronically signed by Eduin Ospina MD> Cosigner Signature (if applicable): CC: Dr. Radha Khan MD; Dr. Eduin Ospina MD~ Signed [facility] Work Phone: 1(479) 332-953605-05-[address] Ospina [facility] August 03, 2022 10:11am Note Date/Time August 03, 2022 7:37am [facility] Medical Records Department [address] [place] [address] Progress Note - Hospitalist 08/03/22 0737 MR#: [id number] Acct: [id number] Name: KRUNAL LEOS Rep #:[id number] : 1965 56 From: Eduin Ospina MD PCP: Dr. Radha Khan MD Status:ADM TALIB Location: [place] [address] Reason for Visit Reason for Visit: Diagnoses [...] 40 Minutes Charges/Coding Visit Charges Inpatient E&M: 22372 Subs Hosp L2 08/03/22 1011 <Electronically signed by Eduin Ospina MD> Cosigner Signature (if applicable): CC: ~ Signed [facility] Work Phone: 1([phone]) 469-348305-04-[address] Ospina [facility] August 02, 2022 10:50am Note Date/Time August 02, 2022 8:30am [facility] Medical Records Department [address] [facility] [place] [address] Progress Note - Hospitalist 08/02/22827 MR#: [id number] Acct: [id number] Name: KRUNAL LEOS Rep #:[id number] : 1965 56 From: Eduin Ospina MD PCP: Dr. Radha Khan MD Status:ADM TALIB Location: [place] [address] Reason for Visit Reason for Visit: Diagnoses [...] (Auto) 70.4 H, Lymph % (Auto) 13.4L, [place] % (Auto) 11.7 H, Eos % (Auto) [...] % (Auto) 59.7, Lymph % (Auto) 21.5, [place] % (Auto) 14.4 H, Eos % (Auto) [...] 40 Minutes Charges/Coding Visit Charges Inpatient E&M: 19191 Subs Hosp L2 08/02/22 1050 <Electronically signed by Eduin Ospina MD> Cosigner Signature (if applicable): CC: ~ Signed [facility] Work Phone: 1(591) 683-945005-04-2023 History and physical note Author Dr. Bell [facility] August 02, 2022 2:34am Note Date/Time August 01, 2022 10:32p m [facility] Medical Records Department [address] [place] [address] H&P Exam - Hospitalist 08/01/222231 MR#: [id number] Acct: [id number] Name: KRUNAL LEOS Rep #:[id number] : 1965 56 From: Cookie Bell MD PCP: Dr. Radha Khan MD Status:ADM ATLIB Location: [place] [address]- 1 HPI - General General Date of [...] neuropathy, Hx TIA who presents to the [facility] ED on 08/01/22 with history of [...] IV x1, meclizine 25 mg p.o. x1. [facility] Medical History (Updated 08/02/22 @ 02:28 [...] Last Taken 05/09/22] blood-glucose meter,continuous (Dexcom G6 On Site Nurse) #1 ea 07/26/20 [Rx Last Taken Unknown] [...] (Auto) 70.4 H, Lymph % (Auto) 13.4L, [place] % (Auto) 11.7 H, Eos % (Auto) [...] neuropathy, Hx TIA who presents to the [facility] ED on 08/01/22 with history of [...] 75 minutes. Charges/Coding Visit Charges Inpatient E&M: 22970 Init Hosp L3 Procedures Hospitalists Procedures: 01203 Advncd Care Plan 30 Min 08/02/22 0234 <Electronically signed by Cookie Bell MD> Cosigner Signature (if applicable): CC: Dr. Radha Khan MD; Dr. Cookie Bell MD~ Signed [facility] Work Phone: 1(203) 190-389105-04-[address] Hill [facility] August 01, 2022 11:55pm Note Date/Time August 01, 2022 8:08pm [facility] Medical Records Department [address] [place] [address] Emergency Department Summary 08/01/22 MR#: [id number] Acct: [id number] Name: KRUNAL LEOS Rep #:[id number] : 1965 56 From: Nely Hill MD PCP: Dr. Radha Khan MD Status:ADM TALIB Location: [place] [address] HPI History of Present Illness Chief Complaint: [...] equivocal and norecommendation for surgery was made. [facility] Medical History Acute kidney injury Anemia Anxiety [...] Last Taken 05/09/22] blood-glucose meter,continuous (Dexcom G6 On Site Nurse) #1 ea 07/26/20 [Rx Last Taken Unknown] [...] Medical decision making narrative: Patient placed on library monitor. EKG obtained to evaluate for cardiac [...] 70.4 H Lymph % (Auto) 13.4 L [place] % (Auto) 11.7 H Eos % (Auto) [...] (Auto) Neut % (Auto) Lymph % (Auto) [place] % (Auto) Eos % (Auto) Baso % [...] our attention. I spoke with neurology at [facility]. Given that the patient is already on [...] Vertigo Prescriptions: No Action (DME) Dexcom G6 On Site Nurse Misc See Rx Instructions .ROUTE .MEDSUPPLY Qty: [...] Provider] - Disposition Disposition: Acute Care Hospital [facility] What to do if you have Problems For any increased pain, shortness of breath, bleeding, nausea or vomiting, chestpain, or any unexpected problems, contact your Primary Care Provider. Call [facility] ([phone]) or report to the closest Emergency Room. Call 911 if necessary. 08/01/225 <Electronically signed by Nely Hill MD> Cosigner Signature (if applicable): CC: Dr. Radha Khan MD ~ Signed [facility] Work Phone: Consult note Author Ethel Moyer [facility] Note Date/Time September 28, 2024 5:15 pm [facility] Medical Records Department [address] [place] [address] Counseling Note - Pharmacy 09/28/24 1549 MR#: [id number] Acct: [id number] Name: KRUNAL LEOS Rep #:[id number] : 1965 59 From: Ethel Moyer PCP: Dr. Brandt Winter MD Status:ADM IN Location: [place] [address] Pharmacy ID Med Reconciliation Pharmacy Service has performed discharge medication reconciliation for this patient. The patient's discharge medication list was reviewed for discrepancies and discrepancies were resolved. Medications at Discharge Home Medications tamsulosin 0.4 mg capsule 0.4 mg PO DAILY prostate 09/08/15 Held on 09/28/24. Instructions: Until instructed to restart duloxetine 60 mg capsule,delayed release (Cymbalta) 60 mg PO DAILY depression 04/17/18 blood-glucose,participant administrator,cont (Dexcom G6 On Site Nurse) #1 ea 07/26/20 atorvastatin 80 mg tablet [...] capsule 134 mg PO QHS 09/26/24 09/28/24 6358 <Electronically signed by Ethel Moyer> Date _ Ethel Toth Signature (if applicable): Date CC: ~ Signed [facility] Work Phone: Discharge summary Author Betina Martinez [facility] Note Date/Time November 26, 2024 12 :18pm [facility] Medical Records Department [address] [place] [address] Emergency Department Summary 11/26/24 MR#: [id number] Acct: [id number] Name: KRUNAL LEOS Rep #:[id number] : [...] droop is a deficit from prior stroke. [facility] Medical History Hyperlipidemia Elevated troponin Type 2 [...] to chronic blood loss Current use of group home anticoagulation Morbid obesity with BMI of 45.0-49.9, adult Atherosclerotic heart disease of [place] coronary artery without angina pectoris Mini stroke [...] depres wanda 04/17/18 09/26/24 History release (Cymbalta) blood-glucose,participant administrator,cont #1 ea 07/26/20 Unknown Rx (Dexcom G6 On Site Nurse) blood-glucose transmitter (Dexcom #1 ea 12/29/21 Unkno [...] 2.5 mg/3 mL 2.5 mg inhalation Q4H ND N 11/25/24 Unknown History (0.083 %) solution [...] 76.5 H Lymph % (Auto) 8.9 L [place] % (Auto) 12.8 H Eos % (Auto) [...] Clarity Clear Urine pH 6.0 Ur Specific Mertens 1.015 Urine Protein 15 H Urine Glucose [...] no visible acute traumatic injury. Reading Location: [facility] Cervical Spine CT 11/26/24 09:38 IMPRESSION: DEGENERATIVE CHANGES OF THE CERVICAL SPINE. NO EVIDENCE OF SIGNIFICANT OSSEOUS CENTRAL CANAL OR NEURAL FORAMINAL STENOSIS. Reading Location: [id number] Chest X-Ray 11/26/24 09:38 IMPRESSION: Examination limited [...] acute osseous process is identified. Reading Location: [facility] Pelvis X-Ray 11/26/24 09:38 IMPRESSION: Degenerative [...] out a currently occult fracture. Reading Location: [place] [address] Discharge Plan Triage Chief Complaint: Weakness ED Provider: Betina Martinez Dx/Rx/DC Orders Prescriptions: No Action (DME) Dexcom G6 On Site Nurse Misc See Rx Instructions .ROUTE .MEDSUPPLY Qty: [...] MD [Primary Care Provider] - Print Language: Bermudian What to do if you have Problems For any increased pain, shortness of breath, bleeding, nausea or vomiting, chestpain, or any unexpected problems, contact your Primary Care Provider. Call [facility] ([phone]) or report to the closest Emergency Room. Call 911 if necessary. 11/26/24 1218 <Electronically signed by Betina Martinez MD> Cosigner Signature (if applicable): CC: Dr. Brandt Winter MD ~ Signed [facility] Work Phone: Evaluation note* Diagnosis Onset Date [...] heart failure) chronic KIANNA (obstructive sleep apnea) [facility] Work Phone: Evaluation note* Diagnosis Onset [...] (obstructive sleep apnea) chronic Diabetes chronic Obesity [facility] Work Phone: Evaluation note* Diagnosis Onset [...] Paroxysmal atrial fibrillation acute Essential (primary) hypertension [facility] Work Phone: Evaluation note* Diagnosis Onset Date Resolution Status Left carotid bruit acute Paroxysmal atrial fibrillation acute Essential (primary) hypertension chronic Diabetes chronic Essential (primary) hypertension chronic Obesity chronic Dyspnea on exertion acute Chronic diastolic CHF (congestive heart failure) chronic KIANNA (obstructive sleep apnea) chronic Dyspnea on exertion acute Left carotid bruit acute Paroxysmal atrial fibrillation acute Essential (primary) hypertension [facility] Work Phone: Evaluation note* Diagnosis Onset Date Resolution Status Diabetes chronic Essential (primary) hypertension chronic Obesity chronic Dyspnea on exertion acute Chronic diastolic CHF (congestive heart failure) chronic KIANNA (obstructive sleep apnea) chronic Dyspnea on exertion acute Left carotid bruit acute Paroxysmal atrial fibrillation acute Essential (primary) hypertension chronic Diabetes chronic Essential (primary) hypertension chronic Obesity [facility] Work Phone: Evaluation note* Diagnosis Onset [...] atrial fibrillation acute Essential (primary) hypertension chronic [facility] Work Phone: Evaluation note* Diagnosis Onset Date [...] apnea) chronic Diabetes chronic Hypothyroidism chronic Obesity [facility] Work Phone: Evaluation note* Diagnosis Onset [...] apnea) chronic Diabetes chronic Hypothyroidism chronic Obesity [facility] Work Phone: Evaluation note* Diagnosis Onset [...] chronic Hypothyroidism chronic Obesity chronic Vertigo acute [facility] Work Phone: Evaluation note* Diagnosis Onset Date Resolution Status Chronic diastolic CHF (congestive heart failure) chronic Chronic respiratory failure with hypoxia chronic Dyspnea on exertion chronic Obesity chronic KIANNA (obstructive sleep apnea) chronic Diabetes chronic Hypothyroidism chronic Obesity chronic Vertigo acute Diabetes chronic Essential (primary) hypertension chronic Insulin pump titration chron ic Obesity chronic Presence of insulin pump chr onic [facility] Work Phone: Evaluation note* Diagnosis Onset Date Resolution Status Vertigo acute Diabetes chronic Essential (primary) hypertension chronic Insulin pump titration chron ic Obesity chronic Presence of insulin pump chr onic Carotid stenosis acute Double vision acute Left carotid bruit acute Vertigo acute [facility] Work Phone: Evaluation note* Diagnosis Onset Date Resolution Status Carotid stenosis acute Double vision acute Left carotid bruit acute Vertigo acute Post op infection acute Thyroid nodule acute CKD (chronic kidney disease) chronic Diabetes chronic Hypothyroidism chronic Microalbuminuria chronic Obesity chronic Multiple thyroid nodules acu te [facility] Work Phone: Evaluation note* Diagnosis Onset Date Resolution Status Post op infection acute Thyroid nodule acute CKD (chronic kidney disease) chronic Diabetes chronic Hypothyroidism chronic Microalbuminuria chronic Obesity chronic Multiple thyroid nodules acu te CKD (chronic kidney disease) chronic Diabetes chronic Hypothyroidism chronic Microalbuminuria chronic Neuropathy chronic Obesity [facility] Work Phone: Evaluation note* Diagnosis Onset [...] Dyspnea on exertion chronic Essential (primary) hypertension [facility] Work Phone: Evaluation note* Diagnosis Onset [...] hypertension chronic Multiple thyroid nodules acu te [facility] Work Phone: Evaluation note* Diagnosis Onset Date [...] nodules acu te Polyneuropathy acute Hyperlipidemia chronic [facility] Work Phone: Evaluation note* Diagnosis Onset Date [...] cerebrovascular accident (CVA) acute Peripheral vestibulopathy ac [place] Polyneuropathy acute Hyperlipidemia chronic Double vision resolved [facility] Work Phone: Evaluation note* Diagnosis Onset Date Resolution Status CKD (chronic kidney disease) chronic Diabetes chronic Hypothyroidism chronic Microalbuminuria chronic Neuropathy chronic Obesity chronic Left carotid bruit acute Paroxysmal atrial fibrillation acute Dyspnea on exertion chronic Essential (primary) hypertension chronic Multiple thyroid nodules acu te History of TIA (transient ischemic attack) acute Ischemic cerebrovascular accident (CVA) acute Peripheral vestibulopathy ac [place] Polyneuropathy acute Hyperlipidemia chronic Double vision resolved [facility] Work Phone: Evaluation note* Diagnosis Onset Date Resolution Status Left carotid bruit acute Paroxysmal atrial fibrillation acute Dyspnea on exertion chronic Essential (primary) hypertension chronic Multiple thyroid nodules acu te History of TIA (transient ischemic attack) acute Ischemic cerebrovascular accident (CVA) acute Peripheral vestibulopathy ac [place] Polyneuropathy acute Hyperlipidemia chronic Double vision resolved CKD (chronic kidney disease) chronic Diabetes chronic Essential (primary) hypertension chronic Hypothyroidism chronic Neuropathy chronic Obesity chronic Carotid stenosis acute History of TIA (transient ischemic attack) acute Ischemic cerebrovascular accident (CVA) acute Polyneuropathy acute [facility] Work Phone: Evaluation note* Diagnosis Onset Date Resolution Status CKD (chronic kidney disease) chronic Diabetes chronic Essential (primary) hypertension chronic Hypothyroidism chronic Neuropathy chronic Obesity chronic History of TIA (transient ischemic attack) acute Ischemic cerebrovascular accident (CVA) acute Polyneuropathy acute Carotid stenosis chronic Carotid stenosis chronic Carotid stenosis chronic [facility] Work Phone: Evaluation note* Diagnosis Cerebrovascular accident (CVA), unspecified mechanism (HCC)- Primary Cerebrovascular accident (CVA), unspecified mechanism (HCC) [facility] Bilateral carotid artery stenosis- Primary Occlusion and stenosis of carotid artery without mention of cerebral infarction Ischemic cerebrovascular accident (CVA) (HCC) [facility] Chronic kidney disease, unspecified CKD stage- Primary [facility] Ischemic cerebrovascular accident (CVA) (HCC)- Primary Bilateral carotid artery stenosis Occlusion and stenosis of carotid artery without mention of cerebral infarction [facility] Diagnosis Bilateral carotid artery occlusion Occlusion and stenosis of carotid artery without mention of cerebral infarction [facility] Cerebrovascular accident (CVA), unspecified mechanism (HCC)- Primary Bilateral carotid artery stenosis Occlusion and stenosis of carotid artery without mention of cerebral infarction [facility] Ischemic cerebrovascular accident (CVA) (HCC) Bilateral carotid artery stenosis Occlusion and stenosis of carotid artery without mention of cerebral infarction [facility] Diagnosis Bilateral carotid artery stenosis- Primary Occlusion and stenosis of carotid artery without mention of cerebral infarction [facility] Diagnosis ILD (interstitial lung disease) (Multi)- Primary Postinflammatory pulmonary fibrosis Pulmonary hypertension (Multi) Other chronic pulmonary heart diseases Chronic respiratory failure with hypoxia documented in this encounter [facility] Work Phone: Evaluation note* Diagnosis ILD (interstitial lung disease) (Multi) Postinflammatory pulmonary fibrosis documented in this encounter [facility] Work Phone: Evaluation note* Diagnosis Pulmonary hypertension (Multi) Other chronic pulmonary heart diseases documented in this encounter [facility] Work Phone: Evaluation note* Diagnosis ILD (interstitial lung disease) (Multi) Postinflammatory pulmonary fibrosis documented in this encounter [facility] Work Phone: Evaluation note* Diagnosis ILD (interstitial lung disease) (Multi)- Primary Postinflammatory pulmonary fibrosis Chronic respiratory failure with hypoxia KIANNA (obstructive sleep apnea) Obstructive sleep apnea (adult) (pediatric) BMI 40.0-44.9, adult (Multi) Diastolic heart failure, unspecified HF chronicity documented in this encounter [facility] Work Phone: Evaluation note* Diagnosis ILD (interstitial lung disease) (Multi) Postinflammatory pulmonary fibrosis documented in this encounter [facility] Work Phone: Evaluation note* Diagnosis ILD (interstitial lung disease) (Multi)- Primary Postinflammatory pulmonary fibrosis Chronic respiratory failure with hypoxia KIANNA (obstructive sleep apnea) Obstructive sleep apnea (adult) (pediatric) BMI 40.0-44.9, adult (Multi) Diastolic heart failure, unspecified HF chronicity documented in this encounter [facility] Work Phone: Evaluation note* Diagnosis ILD (interstitial lung disease) (Multi) Postinflammatory pulmonary fibrosis documented in this encounter [facility] Work Phone: Evaluation note* Diagnosis Bilateral carotid artery stenosis Occlusion and stenosis of carotid artery without mention of cerebral infarction [facility] Diagnosis Bilateral carotid artery stenosis Occlusion and stenosis of carotid artery without mention of cerebral infarction [facility] Diagnosis ILD (interstitial lung disease) (Multi)- Primary Postinflammatory pulmonary fibrosis Chronic respiratory failure with hypoxia BMI 40.0-44.9, adult (Multi) Diastolic heart failure, unspecified HF chronicity documented in this encounter [facility] Work Phone: Evaluation note* Diagnosis ILD (interstitial lung disease) (Multi) Postinflammatory pulmonary fibrosis documented in this encounter [facility] Work Phone: Evaluation note* Diagnosis ILD (interstitial lung disease) (Multi)- Primary Postinflammatory pulmonary fibrosis High risk medication use Chronic respiratory failure with hypoxia BMI 40.0-44.9, adult (Multi) Diastolic heart failure, unspecified HF chronicity (Multi) KIANNA (obstructive sleep apnea) Obstructive sleep apnea (adult) (pediatric) documented in this encounter [facility] Work Phone: Evaluation note* Diagnosis ILD (interstitial lung disease) (Multi) Postinflammatory pulmonary fibrosis documented in this encounter [facility] Work Phone: Evaluation note* Diagnosis ILD (interstitial lung disease) (Multi) Postinflammatory pulmonary fibrosis Chronic respiratory failure with hypoxia documented in this encounter [facility] Work Phone: Evaluation note* Diagnosis Bilateral carotid artery stenosis- Primary Occlusion and stenosis of carotid artery without mention of cerebral infarction Transient alteration of awareness [facility] Ochoa Johnson [facility] Note Date/Time November 26, 2024 12 :33pm [facility] Medical Records Department [address] [place] [address] H&P Exam - Hospitalist 11/26/24 1209 MR#: [id number] Acct: [id number] Name: KRUNLA LEOS Rep #:[id number] : 1965 59 [...] fluids as well as vancomycin and Zosyn. 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 Morbid obesity with BMI of 45.0-49.9, adult Atherosclerotic heart disease of [place] coronary artery without angina pectoris Mini stroke [...] depres wanda 04/17/18 09/26/24 History release (Cymbalta) blood-glucose,participant administrator,cont #1 ea 07/26/20 Unknown Rx (Dexcom G6 On Site Nurse) blood-glucose transmitter (Dexcom #1 ea 12/29/21 Unkno [...] 2.5 mg/3 mL 2.5 mg inhalation Q4H ND N 11/25/24 Unknown History (0.083 %) solution [...] (Auto) 76.5 H, Lymph% (Auto) 8.9 L, [place] % (Auto) 12.8 H, Eos % (Auto) [...] Clarity Clear, Urine pH 6.0, Ur Specific [place] 1.015, Urine Protein 15 H, Urine Glucose [...] no visible acute traumatic injury. Reading Location: [facility] Cervical Spine CT 11/26/24 09:38 IMPRESSION: DEGENERATIVE CHANGES OF THE CERVICAL SPINE. NO EVIDENCE OF SIGNIFICANT OSSEOUS CENTRAL CANAL OR NEURAL FORAMINAL STENOSIS. Reading Location: [id number] Chest X-Ray 11/26/24 09:38 IMPRESSION: Examination limited [...] acute osseous process is identified. Reading Location: [facility] Pelvis X-Ray 11/26/24 09:38 IMPRESSION: Degenerative [...] out a currently occult fracture. [facility] Assessment & Plan Assessment/Plan (1) Sepsis: [...] this time. Patient to follow-up with his senior investment manager as outpatient. Patient takes pirfenidone for his [...] does so. Charges/Coding Visit Charges Inpatient E&M: 20169 Init Hosp L3 11/26/24 8449 <Electronically signed by Ochoa Johnson DO> Cosigner Signature (if applicable): CC: Dr. Brandt Winter MD; Dr. Ochoa Johnson DO; Rosalino Padron~ Signed [facility] Work Phone: History of Present illness Narrative* Rosalino Padron MD - 08/28/2024 1:00 PM EDT Images from the original note were not included. Department of Medicine Division of Pulmonary, Critical Care, and Sleep Medicine Consultation [address] [facility] Patient was referred by his PCP (Dr. [...] surgery total pulmonary decortication in 2015 at [facility]. He was hospitalized in [place] from 03/02-03/04/2024 for acute hypoxic respiratory failure. [...] ->on 8L, 130m. Peak SpO2 of 100%. [place] SpO2 90%. 07/20/2024 ->on 8L, 137m. Peak [...] Review Audit Reviewed by Heavenly Sparks MA (Health And Social Care Teacher) on 08/28/24 at 1158 Medication Order Taking? Sig Documenting Provider Last Dose Status albuterol 90 mcg/actuation inhaler [id number] INHALE 2 PUFFS BY MOUTH EVERY 4 HOURS NEEDED FOR SHORTNESS OF BREATH OR WHEEZING Historical Provider, Active amLODIPine (Norvasc) 5 mg tablet [id number] Take 1 tablet (5 mg) by mouth once daily. Historical Provider, Active aspirin 325 mg tablet [id number] Take 1 tablet (325 mg) by mouth once daily. Historical ProviderLORNActive atorvastatin (Lipitor) 80 mg tablet [id number] Take 1 tablet (80 mg) by mouth once daily at bedtime.Gloria Rahman MD Active betamethasone, augmented, (Diprolene) 0.05 % lotion [id number] APPLY TO RASH ON THE TRUNK OR SCALP 1-2 TIMES DAILY NEEDED Historical MD Lacey Active bismuth subsalicylate (Pepto Bismol) 262 mg chewable tablet [id number] CHEW AND SWALLOW 2 TABLETS BYMOUTH 3 TIMES A DAY for 2 weeks. max 16 tablets per 24 hours Patient not taking: Reported on 08/07/2024 Historical MD Lacey Active Brilinta 90 mg tablet [id number] 1 tablet (90 mg). Historical ProviderMD Active busPIRone (Buspar) 10 mg tablet [id number] Take 1 tablet (10 mg) by mouth 3 times a day. Historical MD Lacey Active clopidogrel (Plavix) 75 mg tablet [id number] Take 1 tablet (75 mg) by mouth early in the morning.. Historical ProviderMD Active dapagliflozin propanediol (Farxiga) 5 mg [id number] Take 1 tablet (5 mg) by mouth once daily. Historical MD Lacey Active Dexcom G6 Sensor device [id number] USE DIRECTED FOR CONTINUOUS BLOOD GLUCOSE MONITORING, CHANGE SENSOR EVERY 10 DAYS Historical ProviderMD Active DULoxetine (Cymbalta) [address] capsule [id number] Take 1 capsule (60 mg) by mouth once daily. Historical MD Lacey Active Eliquis 5 mg tablet [id number] Take 1 tablet (5 mg) by mouth 2 times a day. Historical ProviderMD Active ergocalciferol (Vitamin D-2) 1250 mcg (50,000 units) capsule [id number] Take 1 capsule (1,250 mcg) by mouth. Gloria Rahman MD Active fenofibrate (Tricor) 54 mg tablet [id number] Take 1 tablet (54 mg) by mouth once daily. Historical ProviderMD Active furosemide (Lasix) 40 mg tablet [id number] Take 1 tablet (40 mg) by mouth. Gloria Rahman MD Active glimepiride (Amaryl) 4 mg tablet [id number] Take 1 tablet (4 mg) by mouth early in the morning.. Patient not taking: Reported on 08/07/2024 Gloria Rahman MD Active glipiZIDE (Glucotrol) 5 mg tablet [id number] Take 1 tablet (5 mg) by mouth. Patient not taking: Reported on 08/07/2024 Gloria Rahman MD Active HumuLIN R U-500, Conc, Insulin 500 unit/mL CONCENTRATED injection [id number] INJECT 75 UNITS DAILY VIA CONTINUOUS SUBCUTANEOUS INFUSION. DISCARD VIAL AFTER 40 DAYS Patient not taking: Reported on 08/07/2024 Gloria Rahman MD Active Jardiance 25 mg [id number] Take 1 tablet (25 mg) by mouth once daily. Gloria Rahman MD Active levothyroxine (Synthroid, Levoxyl) 112 mcg tablet [id number] Take 1 tablet (112 mcg) by mouth once daily. Gloria Rahman MD Active lisinopril 40 mg tablet [id number] Take 1 tablet (40 mg) by mouth once daily. Gloria Rahman MD Active metFORMIN (Glucophage) 500 mg tablet [id number] Take 1 tablet (500 mg) by mouth 2 times daily (morning and late afternoon). Gloria Rahman MD Active metoprolol succinate XL (Toprol-XL) 100 mg 24 hr tablet [id number] TAKE 1 TABLET BY MOUTH DAILY for heart Historical MD Lacey Active Mucinex DM 60-1,200 mg tablet extended release 12 hr [id number] Take 1 tablet by mouth every 12 hours. Gloria Rahman MD Active oxyCODONE-acetaminophen (Percocet) 5-325 mg tablet [id number] Take 1 tablet by mouth 2 times a day as needed. Patient not taking: Reported on 08/07/2024 Gloria Rahman MD Active pantoprazole (ProtoNix) 40 mg EC tablet [id number] Take 1 tablet (40 mg) by mouth. Gloria Rahman MD Active potassium citrate CR (Urocit-K-10) 10 mEq ER tablet [id number] Take 1 tablet (10 mEq) by mouth twicea day. Gloria Rahman MD Active predniSONE (Deltasone) 20 mg tablet [id number] Take 0.5 tablets (10 mg) by mouth early in the morning.. Gloria Rahman MD Active predniSONE (Deltasone) 20 mg tablet [id number] Take 2 tablets (40 mg) by mouth once daily. Patient not taking: Reported on 08/07/2024 Rosalino Padron MD Active predniSONE (Deltasone) 5 mg tablet [id number] Take 4 tablets (20 mg) by mouth once daily for 30 days, THEN 3 tablets (15 mg) once daily for 30 days, THEN 2 tablets (10 mg) once daily for 30 days, THEN1 tablet (5 mg) once daily for 14 days. Rosalino Padron MD Active spironolactone (Aldactone) 50 mg tablet [id number] Take 1 tablet (50 mg) by mouth once daily. Patient not taking: Reported on 08/07/2024 Historical Provider, Active tamsulosin (Flomax) 0.4 mg 24 hr capsule [id number] Take 1 capsule (0.4 mg) by mouth once daily. Historical Provider, Active traMADol (Ultram) 50 mg tablet [id number] Take 1 tablet (50 mg) by mouth. [...] Rosalino Padron MD 08/28/2024 [facility]: Hospital course Narrative No data available for this section [facility] Hospital Discharge instructions No data available for this section [facility] Hospital Discharge instructions* Attachments The following attachments cannot be sent through Care Everywhere. * Arteriogram Discharge Instructions ([place]) [facility] Additional Instructions 1. Hold Flomax as discussed due to urinary incontinence 2. Okay to utilize Imodium as needed for your bowel incontinence 3. If your blood sugars remain elevated despite weaning your steroids please contact your primary stitch bonding machine operator 4. Would have extensive conversation in the future before holding aspirin, Brilinta, and Eliquis 5. Please follow-up with your neurologist as previously recommended [facility]: [facility] Discharge instructionsAdditional Instructions You had cellulitis of your right leg. Due to illness with stress in your body that cause your pressure to drop complicated by the fact that you take steroids chronically with prednisone. You been on higher dose prednisone decrease that to your baseline of 15 mg daily. [facility] Work Phone: Hospital Discharge instructionsAdditional Instructions Your [...] concerns return to the ER for repeat evaluation.[facility] Work Phone: Instructions* Attachments The following attachments cannot be sent through Care Everywhere. * Risk Factors for Stroke ([place]ian) * Stroke ([place]ian) * Carotid Artery Disease ([place]) [facility] Patient Instructions* Rosalino Padron [...] a breathing or a walking test Call [phone] to schedule EKG's, Echocardiograms and Cardiopulmonary Stress Tests. Call [phone] to schedule Radiology tests such as Nuclear Medicine Stress Tests, CT Scans, and MRI's. Should you have any questions Please Call our pulmonary nurse Linda Marie at [phone] or my catalog library assistant Puneet Leone at [phone] documented in this encounterUniversity [facility] Work Phone: Reason for referral (narrative)No reason for referral information availableWCincinnati VA Medical Center Work Phone: Reason for visit Narrative* Imaging (Routine) - Closed Specialty Diagnoses / Procedures Referred By Luke rubi Referred To Contact Radiology Diagnoses Bilateral carotid artery stenosis Ischemic cerebrovascular accident (CVA) (HCC) Procedures CTA head neck angio w and wo IV contrast Oziel Culp MD [address] [place] [address] Phone: tel: fax: Referral ID Status Reason Start Date Expiration Date Visits Re quested Visits Authorized [id number] Closed 01/06/2024 01/05/2025 [facility] Imaging (Routine) - Closed Specialty Diagnoses / Procedures Referred By Luke rubi Referred To Contact Cardiology Diagnoses Bilateral carotid artery occlusion Procedures Vascular US carotid artery duplex bilateral Suzy Jauregui MD [address] [place] [address] Phone: tel: fax: Referral ID Status Reason Start Date Expiration Date Visits Re quested Visits Authorized [id number] Closed 10/15/2023 10/14/2024 1 1 [facility] for visit Narrative* Imaging (Routine) - Closed Specialty Diagnoses / Procedures Referred By Contac t Referred To Contact Radiology Diagnoses Ischemic cerebrovascular accident (CVA) (HCC) Bilateral carotid artery stenosis Procedures IR angiogram cerebral with possible intervention Mey Loya, CORPORATE FINANCIAL ANALYST - MANUFA[employer]URING PLANT CONTROLLER [address] [address] Phone: tel: fax: Referral ID Status Reason Start Date Expiration Date Visits Re quested Visits Authorized [id number] Closed 02/13/2024 02/12/2025 1 1 [facility] for visit Narrative* Imaging (Routine) - Authorized Specialty Diagnoses / Procedures Referred By Contac t Referred To Contact Radiology Diagnoses ILD (interstitial lung disease) (Multi) Procedures [place] [address] [place] [address] Phone: tel: fax: Referral ID Status Reason Start Date Expiration Date Visits Requested Visits Authorized [id number] Authorized Perform Procedure 06/26/2024 06/26/2025 1 1 [facility] Work Phone: reason for visit Narrative* CV Imaging (Routine) - Authorized Specialty Diagnoses / Procedures Referred By Rohanac t Referred To Contact Cardiology Diagnoses Pulmonary hypertension (Multi) Procedures Transthoracic Echo (TTE) Complete ND ECHO TTHRC R-T 2D W/WOM-MODE COMPL SPEC&[place] [address] [place] [id number] Phone: tel: fax: Referral ID Status Reason Start Date Expiration Date Visits Requested Visits Authorized [id number] Authorized Perform Procedure 06/26/2024 06/26/2025 1 1 [facility] Work Phone: reason for visit Narrative* PFT (Routine) - Pending Review Specialty Diagnoses / Procedures Referred By Rohanac t Referred To Contact Diagnoses ILD (interstitial lung disease) (Multi) Procedures Pulmonary Stress Test (6 Min. Walk) Rosalino Padron MD [address] [place] [address] Phone: tel: fax: Referral ID Status Reason Start Date Expiration Date V isits Requested Visits Authorized [id number] Pending Review 06/26/2024 06/26/2025 1 1 [facility] Work Phone: reason for visit Narrative* PFT (Routine) - Pending Review Specialty Diagnoses / Procedures Referred By Contac t Referred To Contact Diagnoses ILD (interstitial lung disease) (Multi) Procedures Complete Pulmonary Function Test (Spirometry/DLCO/Lung Volumes) Rosalino Padron MD [address] [place] [address] Phone: tel: fax: Referral ID Status Reason Start Date Expiration Date V isits Requested Visits Authorized [id number] Pending Review 06/26/2024 06/26/2025 1 1 [facility] Work Phone: reason for visit Narrative* PFT (Routine) - Pending Review Specialty Diagnoses / Procedures Referred By Contac t Referred To Contact Diagnoses ILD (interstitial lung disease) (Multi) Procedures Spirometry Pre/Post Bronchodilator Rosalino Padron MD [address] [place] [address] Phone: tel: fax: Referral ID Status Reason Start Date Expiration Date V isits Requested Visits Authorized [id number] Pending Review 08/07/2024 08/07/2025 1 1 [facility] Work Phone: reason for visit Narrative* PFT (Routine) - Pending Review Specialty Diagnoses / Procedures Referred By Contac t Referred To Contact Diagnoses ILD (interstitial lung disease) (Multi) Procedures Pulmonary Stress Test (6 Min. Walk) Rosalino Padron MD [address] [place] [address] Phone: tel: fax: Referral ID Status Reason Start Date Expiration Date V isits Requested Visits Authorized [id number] Pending Review 08/07/2024 08/07/2025 1 1 [facility] Work Phone: reason for visit Narrative* PFT (Routine) - Pending Review Specialty Diagnoses / Procedures Referred By Contac t Referred To Contact Diagnoses ILD (interstitial lung disease) (Multi) Procedures DLCO / [place] [address] [place] [address] Phone: tel: fax: Referral ID Status Reason Start Date Expiration Date V isits Requested Visits Authorized [id number] Pending Review 08/07/2024 08/07/2025 1 1 [facility] Work Phone: reason for visit Narrative* Endoscopy (Routine) - Authorized Specialty Diagnoses / Procedures Referred By Contac t Referred To Contact Gastroenterology Diagnoses ILD (interstitial lung disease) (Multi) Procedures Bronchoscopy Tier 2; w BAL, w Transbronch Bx Dick Nguyen [place] [id number] [place] [address] Phone: tel: fax: Referral ID Status Reason Start Date Expiration Date V isits Requested Visits Authorized [id number] Authorized 08/11/2024 08/11/2025 1 1 [facility] Work Phone: reason for visit Narrative* PFT (Routine) - Pending Review Specialty Diagnoses / Procedures Referred By Contac t Referred To Contact Diagnoses ILD (interstitial lung disease) (Multi) Procedures DLCO / Diffusion Capacity Rosalino Padron [place] [id number] [place] [address] Phone: tel: fax: Referral ID Status Reason Start Date Expiration Date V isits Requested Visits Authorized [id number] Pending Review 11/13/2024 11/13/2025 1 1 [facility] Work Phone: reason for visit Narrative* PFT (Routine) - Pending Review Specialty Diagnoses / Procedures Referred By Contac t Referred To Contact Diagnoses ILD (interstitial lung disease) (Multi) Chronic respiratory failure with hypoxia Procedures Pulmonary Stress Test (6 Min. Walk) [place] [address] [place] [address] Phone: tel: fax: Referral ID Status Reason Start Date Expiration Date V isits Requested Visits Authorized [id number] Pending Review 08/28/2024 08/28/2025 1 1 [facility] Work Phone: Reason for visit Narrative* PFT (Routine) - Pending Review Specialty Diagnoses / Procedures Referred By Contac t Referred To Contact Diagnoses ILD (interstitial lung disease) (Multi) Procedures Spirometry Pre/[place] [address] [place] [address] Phone: tel: fax: Referral ID Status Reason Start Date Expiration Date V isits Requested Visits Authorized [id number] Pending Review 11/13/2024 11/13/2025 1 1 [facility] Work Phone: Summary Purpose Family [...] FoundDocuments on File Type Date Recorded 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 Advance Directive(s) 08/19/2015 12:10 PM Advance Directive(s) 09/10/2015 4:56 PM Advance Directive Response Recorded Date/ Time Name of Medical Power of Retarder Operator Tia Leos/segundo awais June 19, 2021 11:06am Advance Directives Yes September 08 3:58am Living Will No July 16, 2021 2:23pm Power of Retarder Operator No July 16 2:23pm Advance Directive Response Recorded Date/ Time Name of Medical Power of Retarder Operator Tia Leos/segundo awais June 19, 2021 11:06am Advance Directives Yes September 08 3:58am Living Will Yes September 04, 2021 6 :29am Power of Retarder Operator Yes September 04, 2021 6:29am Advance Directive Response Recorded Date/ Time Name of Medical Power of Retarder Operator Tia Glasrashid/w awais June 19, 2021 11:06am Name of Medical Power of Retarder Operator tia leos September 04, 2021 6:29am Advance Directives Yes September 08 3:58am Living Will Yes September 04, 2021 6 :29am Power of Retarder Operator Yes September 04, 2021 6:29am Advance Directive Response Recorded Date/ Time Advance Directives Yes September 08 2:58am Living Will Yes September 04, 2021 5 :29am Power of Retarder Operator Yes September 04, 2021 5:29am Advance Directive Response Recorded Date/ Time Advance Directives on File Yes 2022 8:42am Name of Medical Power of Retarder Operator Tia () May 09, 2022 8:42am Advance Directives Yes May 09, 2022 8:42am Living Will Yes May 09 8:42am Power of Retarder Operator Yes May 09, 2022 8:42am Advance Directive Response Recorded Date/ Time Advance Directives on File Yes 2022 9:42am Name of Medical Power of Retarder Operator Tia () May 09, 2022 9:42am Advance Directives Yes May 09, 2022 9:42am Living Will Yes May 09 9:42am Power of Retarder Operator Yes May 09, 2022 9:42am Advance Directive Response Recorded Date/ Time Advance Directives on File Yes 2022 9:42am Name of Medical Power of Retarder Operator Tia () May 09, 2022 9:42am Name of Medical Power of Retarder Operator tia Glas-3 [phone] August 02, 2022 12:47am Advance Directives Yes May 09, 2022 9:42am Living Will Yes August 02, 2022 12 :47am Power of Retarder Operator Yes August 02, 2022 12:47am Advance Directive Response Recorded Date/ Time Name of Medical Power of Retarder Operator tia Glasgi-[id number] [phone] August 02, 2022 12:47am Advance Directives Yes May 09, 2022 9:42am Living Will Yes August 02, 2022 12 :47am Power of Retarder Operator Yes August 02, 2022 12:47am Advance Directive Response Recorded Date/ Time Advance Directives Yes May 09, 2022 9:42am Living Will Yes August 02, 2022 12 :47am Power of Retarder Operator Yes August 02, 2022 12:47am Advance Directive Response Recorded Date/ Time Name of Medical Power of Retarder Operator TIA February 14, 2023 9:43am Advance Directives Yes May 09, 2022 8:42am Living Will Yes February 14, 023 9:43am Power of Retarder Operator Yes February 14, 2023 9:43am Advance Directive Response Recorded Date/ Time Name of Medical Power of Retarder Operator TIA February 14, 2023 10:43am Advance Directives Yes May 09, 2022 9:42am Living Will Yes February 14, 023 10:43am Power of Retarder Operator Yes February 14, 2023 10:43am Advance Directive Response Recorded Date/ Time Advance Directives Yes May 09, 2022 9:42am Living Will Yes February 14, 023 10:43am Power of Retarder Operator Yes February 14, 2023 10:43am Documents on File Type Date Recorded 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 Yes February 14, 2023 10:43am Living Will Yes November 15 11:41am Do you have a Healthcare Power of Retarder Operator? Yes November 16, 2023 11:41am Living Will Yes January 20 4:34am Do you have a Healthcare Power of Retarder Operator? Yes January 21, 2024 4:34am Advance Directives Yes April 30, 2024 10:06am Living Will Yes April 12 3:26pm Do you have a Healthcare Power of Retarder Operator? Yes April 12, 2024 3:26pm Name of Medical Power of Retarder Operator - TIA April 12, 2024 3:26pm Living Will Yes April 24 10:37pm Do you have a Healthcare Power of Retarder Operator? Yes April 24, 2024 10:37pm Name of Medical Power of Retarder Operator tia April 24, 2024 10:37pm Advance Directive Response Recorded Date/ Time Living Will Yes February 14 023 10:43am Do you have a Healthcare Power of Retarder Operator? Yes February 14, 2023 10:43am Living Will Yes November 15 11:41am Do you have a Healthcare Power of Retarder Operator? Yes November 16, 2023 11:41am Living Will Yes January 20 4:34am Do you have a Healthcare Power of Retarder Operator? Yes January 21, 2024 4:34am Advance Directives Yes April 30, 2024 10:06am Living Will Yes April 24 10:37pm Do you have a Healthcare Power of Retarder Operator? Yes April 24, 2024 10:37pm Name of Medical Power of Retarder Operator tia April 24, 2024 10:37pm Advance Directive Response Recorded Date/ Time Living Will Yes February 14 10:43am Do you have a Healthcare Power of Retarder Operator? Yes February 14, 2023 10:43am Living Will Yes January 20 4:34am Do you have a Healthcare Power of Retarder Operator? Yes January 21, 2024 4:34am Advance Directives Yes April 30, 2024 10:06am Living Will Yes April 24 10:37pm Do you have a Healthcare Power of Retarder Operator? Yes April 24, 2024 10:37pm Name of Medical Power of Retarder Operator tia April 24, 2024 10:37pm Advance Directive Response Recorded Date/ Time Advance Directives Yes April 30, 2024 10:06am Advance Directive Response Recorded Date/ Time Do you have a Healthcare Power of Retarder Operator? Yes September 26, 2024 3:39pm Advance Directives Yes April 30, 2024 10:06am Advance Directive Response Recorded Date/ Time Do you have a Healthcare Power of Retarder Operator? Yes September 26, 2024 6:42pm Name of Medical Power of Retarder Operator Tia Leos September 26, 2024 6:42pm Advance Directives Yes April 30, 2024 10:06am Advance Directive Response Recorded Date/ Time Living Will Yes January 20 4:34am Do you have a Healthcare Power of Retarder Operator? Yes January 21, 2024 4:34am Do you have a Healthcare Power of Retarder Operator? Yes September 26, 2024 6:42pm Name of Medical Power of Retarder Operator Tia Leos September 26, 2024 6:42pm Advance Directives Yes April 30, 2024 10:06am Advance Directive Response Recorded Date/ Time Living Will Yes January 20 4:34am Do you have a Healthcare Power of Retarder Operator? Yes January 21, 2024 4:34am Do you have a Healthcare Power of Retarder Operator? Yes September 26, 2024 6:42pm Name of Medical Power of Retarder Operator Tia Leos September 26, 2024 6:42pm Do you have a Healthcare Power of Retarder Operator? Yes November 26, 2024 9:16am Advance Directives Yes April 30, 2024 10:06am Advance Directive Response Recorded Date/ Time Living Will Yes January 20 4:34am Do you have a Healthcare Power of Retarder Operator? Yes January 21, 2024 4:34am Do you have a Healthcare Power of Retarder Operator? Yes September 26, 2024 6:42pm Name of Medical Power of Retarder Operator Tia Leos September 26, 2024 6:42pm Do you have a Healthcare Power of Retarder Operator? Yes November 26, 2024 1:26pm Advance Directives Yes April 30, 2024 10:06am Advance Directive Response Recorded Date/ Time Living Will Yes January 20 4:34am Do you have a Healthcare Power of Retarder Operator? Yes January 21, 2024 4:34am Do you have a Healthcare Power of Retarder Operator? Yes September 26, 2024 6:42pm Name of Medical Power of Retarder Operator Tia Leos September 26, 2024 6:42pm Do you have a Healthcare Power of Retarder Operator? Yes November 26, 2024 1:26pm Do you have a Healthcare Power of Retarder Operator? Yes December 23, 2024 8:30pm Advance Directives Yes April 30, 2024 10:06am Chief Complaint and Reason for Visit Chief Complaint 4 M FU UNSTABLE ANGINA, SOB UNSTABLE ANGINA, SOB UNSTABLE ANGINA, SOB UNSTABLE ANGINA, SOB UNSTABLE ANGINA, SOB HYPOXIA HYPOXIA HYPOXIA 1 M FU [address] fu Shortness of breath dizziness Reason [...] SOB HYPOXIA HYPOXIA HYPOXIA 1 M [address] fu Shortness of breath dizziness KIANNA; [...] SOB HYPOXIA HYPOXIA HYPOXIA 1 M [address] fu Shortness of breath dizziness KIANNA; [...] HYPOXIA HYPOXIA HYPOXIA 1 M FU [address] fu Shortness of breath dizziness KIANNA; [...] HYPOXIA 1 M FU 9 m fu/[address] [place] [id number] fu Shortness of breath dizziness KIANNA; LM 08/04 & 08/07 6 wk FU CP, PROB ACS CP, PROB ACS SOB S/P [facility] ER DYSPNEA Reason for Visit Diabetes [...] Chief Complaint HR 130 today per [facility] [employer] Watch E-ORDER LEFT CAROTID BRUIT 3 M [...] per JR May 21, 2024 10:41am [employer] EMISSIONS TESTING AND REPAIR TECHNICIAN TO READ May 28, 2024 7:06am 30 DAY MONITOR May 28, 2024 9:00am unable to tolerate cpap, new oxygen requ irement June 02, 2024 7:43pm B12 inject June 04, 2024 1:20 pm 8-10 WK F/U June 10, 2024 12: 44pm B12 inject July 06, 2024 1:22 pm B12 inject August 06, 2024 2:27pm EKG (EMISSIONS TESTING AND REPAIR TECHNICIAN) August 12, 2024 11:03 am EORDERS [...] per JR May 21, 2024 10:41am [employer] EMISSIONS TESTING AND REPAIR TECHNICIAN TO READ May 28, 2024 7:06am 30 DAY MONITOR May 28, 2024 9:00am unable to tolerate cpap, new oxygen requ irement June 02, 2024 7:43pm B12 inject June 04, 2024 1:20 pm 8-10 WK F/U June 10, 2024 12: 44pm B12 inject July 06, 2024 1:22 pm B12 inject August 06, 2024 2:27pm EKG (EMISSIONS TESTING AND REPAIR TECHNICIAN) August 12, 2024 11:03 am EORDERS [...] note per May 21, 2024 10:41am [employer] EMISSIONS TESTING AND REPAIR TECHNICIAN TO READ May 28, 2024 7:06am 30 DAY MONITOR May 28, 2024 9:00am unable to tolerate cpap, new oxygen requ irement June 02, 2024 7:43pm B12 inject June 04, 2024 1:20 pm 8-10 WK F/U June 10, 2024 12: 44pm B12 inject July 06, 2024 1:22 pm B12 inject August 06, 2024 2:27pm EKG (EMISSIONS TESTING AND REPAIR TECHNICIAN) August 12, 2024 11:03 am EORDERS [...] note per May 21, 2024 10:41am [employer] EMISSIONS TESTING AND REPAIR TECHNICIAN TO READ May 28, 2024 7:06am 30 DAY MONITOR May 28, 2024 9:00am unable to tolerate cpap, new oxygen requ irement June 02, 2024 7:43pm B12 inject June 04, 2024 1:20 pm 8-10 WK F/U June 10, 2024 12: 44pm B12 inject July 06, 2024 1:22 pm B12 inject August 06, 2024 2:27pm EKG (EMISSIONS TESTING AND REPAIR TECHNICIAN) August 12, 2024 11:03 am EORDERS [...] per JR May 21, 2024 10:41am [employer] EMISSIONS TESTING AND REPAIR TECHNICIAN TO READ May 28, 2024 7:06am 30 DAY MONITOR May 28, 2024 9:00am unable to tolerate cpap, new oxygen requ irement June 02, 2024 7:43pm B12 inject June 04, 2024 1:20 pm 8-10 WK F/U June 10, 2024 12: 44pm B12 inject July 06, 2024 1:22 pm B12 inject August 06, 2024 2:27pm EKG (EMISSIONS TESTING AND REPAIR TECHNICIAN) August 12, 2024 11:03 am EORDERS [...] B12 inject August 06, 2024 2:27pm EKG (EMISSIONS TESTING AND REPAIR TECHNICIAN) August 12, 2024 11:03 am EORDERS [...] B12 inject August 06, 2024 2:27pm EKG (EMISSIONS TESTING AND REPAIR TECHNICIAN) August 12, 2024 11:03 am EORDERS August 12, 2024 11:27 am 6 M FU August 17, 2024 11:16 am B12 inject September 15, 2024 12:5 3pm 5 M FU September 16, 2024 9:59 am CVA RULE OUT September 26, 2024 6:27 pm ACUTE CVA, LA OCCLUSION September 26, 2024 8:20pm ACUTE CVA, LA OCCLUSION September 27, 2024 8:01am ACUTE CVA, LA OCCLUSION September 28, 2024 2:42pm Reason for [...] B12 inject August 06, 2024 2:27pm EKG (EMISSIONS TESTING AND REPAIR TECHNICIAN) August 12, 2024 11:03 am EORDERS August 12, 2024 11:27 am 6 M FU August 17, 2024 11:16 am B12 inject September 15, 2024 12:5 3pm 5 M FU September 16, 2024 9:59 am CVA RULE OUT September 26, 2024 6:27 pm ACUTE CVA, LA OCCLUSION September 26, 2024 8:20pm ACUTE CVA, LA OCCLUSION September 27, 2024 8:01am ACUTE CVA, LA OCCLUSION September 28, 2024 2:42pm STROKE RX [...] B12 inject August 06, 2024 2:27pm EKG (EMISSIONS TESTING AND REPAIR TECHNICIAN) August 12, 2024 11:03 am EORDERS August 12, 2024 11:27 am 6 M FU August 17, 2024 11:16 am B12 inject September 15, 2024 12:5 3pm 5 M FU September 16, 2024 9:59 am CVA RULE OUT September 26, 2024 6:27 pm ACUTE CVA, LA OCCLUSION September 26, 2024 8:20pm ACUTE CVA, LA OCCLUSION September 27, 2024 8:01am ACUTE CVA, LA OCCLUSION September 28, 2024 2:42pm AFTER HOSPITAL [...] B12 inject August 06, 2024 2:27pm EKG (EMISSIONS TESTING AND REPAIR TECHNICIAN) August 12, 2024 11:03 am EORDERS August 12, 2024 11:27 am 6 M FU August 17, 2024 11:16 am B12 inject September 15, 2024 12:5 3pm 5 M FU September 16, 2024 9:59 am CVA RULE OUT September 26, 2024 6:27 pm ACUTE CVA, LA OCCLUSION September 26, 2024 8:20pm ACUTE CVA, LA OCCLUSION September 27, 2024 8:01am ACUTE CVA, LA OCCLUSION September 28, 2024 2:42pm AFTER HOSPITAL [...] B12 inject August 06, 2024 2:27pm EKG (EMISSIONS TESTING AND REPAIR TECHNICIAN) August 12, 2024 11:03 am EORDERS August 12, 2024 11:27 am 6 M FU August 17, 2024 11:16 am B12 inject September 15, 2024 12:5 3pm 5 M FU September 16, 2024 9:59 am CVA RULE OUT September 26, 2024 6:27 pm ACUTE CVA, LA OCCLUSION September 26, 2024 8:20pm ACUTE CVA, LA OCCLUSION September 27, 2024 8:01am ACUTE CVA, LA OCCLUSION September 28, 2024 2:42pm AFTER HOSPITAL [...] B12 inject August 06, 2024 2:27pm EKG (EMISSIONS TESTING AND REPAIR TECHNICIAN) August 12, 2024 11:03 am EORDERS August 12, 2024 11:27 am 6 M FU August 17, 2024 11:16 am B12 inject September 15, 2024 12:5 3pm 5 M FU September 16, 2024 9:59 am CVA RULE OUT September 26, 2024 6:27 pm ACUTE CVA, LA OCCLUSION September 26, 2024 8:20pm ACUTE CVA, LA OCCLUSION September 27, 2024 8:01am ACUTE CVA, LA OCCLUSION September 28, 2024 2:42pm AFTER HOSPITAL [...] B12 inject August 06, 2024 2:27pm EKG (EMISSIONS TESTING AND REPAIR TECHNICIAN) August 12, 2024 11:03 am EORDERS August 12, 2024 11:27 am 6 M FU August 17, 2024 11:16 am B12 inject September 15, 2024 12:5 3pm 5 M FU September 16, 2024 9:59 am CVA RULE OUT September 26, 2024 6:27 pm ACUTE CVA, LA OCCLUSION September 26, 2024 8:20pm ACUTE CVA, LA OCCLUSION September 27, 2024 8:01am ACUTE CVA, LA OCCLUSION September 28, 2024 2:42pm AFTER HOSPITAL [...] B12 inject August 06, 2024 2:27pm EKG (EMISSIONS TESTING AND REPAIR TECHNICIAN) August 12, 2024 11:03 am EORDERS August 12, 2024 11:27 am 6 M FU August 17, 2024 11:16 am B12 inject September 15, 2024 12:5 3pm 5 M FU September 16, 2024 9:59 am CVA RULE OUT September 26, 2024 6:27 pm ACUTE CVA, LA OCCLUSION September 26, 2024 8:20pm ACUTE CVA, LA OCCLUSION September 27, 2024 8:01am ACUTE CVA, LA OCCLUSION September 28, 2024 2:42pm AFTER HOSPITAL [...] B12 inject August 06, 2024 2:27pm EKG (EMISSIONS TESTING AND REPAIR TECHNICIAN) August 12, 2024 11:03 am EORDERS August 12, 2024 11:27 am 6 M FU August 17, 2024 11:16 am B12 inject September 15, 2024 12:5 3pm 5 M FU September 16, 2024 9:59 am CVA RULE OUT September 26, 2024 6:27 pm ACUTE CVA, LA OCCLUSION September 26, 2024 8:20pm ACUTE CVA, LA OCCLUSION September 27, 2024 8:01am ACUTE CVA, LA OCCLUSION September 28, 2024 2:42pm AFTER HOSPITAL [...] September 26, 2024 6:27 pm ACUTE CVA, LA OCCLUSION September 26, 2024 8:20pm ACUTE CVA, LA OCCLUSION September 27, 2024 8:01am ACUTE CVA, LA OCCLUSION September 28, 2024 2:42pm AFTER HOSPITAL [...] September 26, 2024 6:27 pm ACUTE CVA, LA OCCLUSION September 26, 2024 8:20pm ACUTE CVA, LA OCCLUSION September 27, 2024 8:01am ACUTE CVA, LA OCCLUSION September 28, 2024 2:42pm AFTER HOSPITAL [...] December 17, 2024 9:41am Current use of group home anticoagulation December 17, 2024 9:41am Diabetes mellitus, [...] Culp MD [address] [place] [address] Referral ID Status Reason Start Date Expiration Date V isits Requested Visits Authorized [id number] Pending Review 01/06/2024 01/05/2025 1 1 Specialty Diagnoses / Procedures Referred By Contac t Referred To Contact Diagnoses Cerebrovascular accident (CVA), unspecified mechanism (HCC) Harmeet Stallworth MD [address] [place] [address] Referral ID Status Reason Start Date Expiration Date Visits Re quested Visits Authorized [id number] Closed 1 1 Additional Source Comments (unrecognized sect ion and content) No Status Records FoundNo Status Records FoundNo Status Records FoundNo Status Records FoundNo Status Records FoundNo Status Records FoundNo Status Records FoundNo Status Records FoundNo Status Records Found INFORMATION SOURCE (unrecogn ized section and content) DATE CREATED AUTHOR 09/08/2018 [facility] [place] DATE CREATED AUTHOR AUTHOR'S ORGANIZ ATION 10/18/2023 [facility] [place] DATE CREATED AUTHOR AUTHOR'S ORGANIZ ATION 07/25/2024 [facility] DATE CREATED AUTHOR AUTHOR'S ORGANIZ ATION 07/26/2024 [facility] DATE CREATED AUTHOR AUTHOR'S ORGANIZ ATION 08/08/2024 [facility] DATE CREATED AUTHOR AUTHOR'S ORGANIZ ATION 11/25/2024 [facility] DATE CREATED AUTHOR AUTHOR'S ORGANIZ ATION 01/18/2025 [facility] DATE CREATED AUTHOR AUTHOR'S ORGANIZ ATION 01/20/2025 [facility] DATE CREATED AUTHOR AUTHOR'S ORGANIZ ATION 01/20/2025 [facility] Source Comments (unrecognize d section and content) In the event this informatio n is protected by the Federal Confidentiality of Alcohol and Drug Abuse Patient Records regulations: The Federal rules restrict any use of the information to criminally investigate or prosecute any alcohol or drug abuse patient.[facility] Goals (unrecognized section and content) Goals [...] Provider, Referrin g Provider Active Oren Sky SENIOR FINANCE MANAGER, SENIOR FINANCE MANAGER-C Attending Provider Active Team Status: Active Member [...] Provider, Other Pr ovider Active Oren Sky SENIOR FINANCE MANAGER, SENIOR FINANCE MANAGER-C Attending Provider, Referring Pro vider Active Team [...] Provider, Referrin g Provider Active Fior Vallejo SENIOR FINANCE MANAGER, SENIOR FINANCE MANAGER-C Attending Provider Active Team Status: Inactive Member [...] Rdaha Khan MD Primary Care Provider Active Brandt [...] Lydia Segura PA, PA Active Oren Sky SENIOR FINANCE MANAGER, SENIOR FINANCE MANAGER-C Attending Provider Active Team Status: Active Member [...] MD Primary Care Provider Active Oren Sky SENIOR FINANCE MANAGER, SENIOR FINANCE MANAGER-C Attending Provider, Referring Pro vider Active Team Status: Inactive Member Role Status Dates Dr. Radha Khan MD Primary Care Provider, Referrin g Provider Active Dr. Ochoa Dobbs MD Attending Provider Active [employer]cutter Hand Relationship Specialty Start Date End Date Radha Khan [address] [phone] PCP - General Family Medicine 10/03/23 Stonecutter Hand Relationship Specialty Start Date End Date Radha Khan [address] [place] [address] PCP - General Family Medicine 10/03/23 Stonecutter Hand Relationship Specialty Start Date End Date Radha Khan [address] [place] [address] PCP - General Family Medicine 10/03/23 Stonecutter Hand Relationship Specialty Start Date End Date Radha Khan [address] [place] [address] PCP - General Family Medicine 10/03/23 Stonecutter Hand Relationship Specialty Start Date End Date SamanthapalmajonnyRadha [address] [place] [address] PCP - General Family Medicine 10/03/23 Stonecutter Hand Relationship Specialty Start Date End Date FabiolajonnyRadha [address] [place] [address] PCP - General Family Medicine 10/03/23 Stonecutter Hand Relationship Specialty Start Date End Date BillRadha [address] [place] [address] PCP - General Family Medicine 10/03/23 Stonecutter Hand Relationship Specialty Start Date End Date Bill Radha Mcmahon [address] [place] [address] PCP - General Family Medicine 10/03/23 Suzy Jauregui MD [address] [place] [id number] Consulting Physician Vascular Surgery 04/24/24 [employer]ter Hand Relationship Specialty Start Date End Date Radha Khan [address] [place] [address] PCP - General Family Medicine 10/03/23 Suzy Jauregui MD [address] [place] [address] Consulting Physician Vascular Surgery 04/24/24 Stonecutter Hand Relationship Specialty Start Date End Date Radha Khan [address] [place] [address] PCP - General Family Medicine 10/03/23 Suzy Jauregui MD [address] [place] [address] Consulting Physician Vascular Surgery 04/24/24 Stonecutter Hand Relationship Specialty Start Date End Date Radha Khan [address] [facility] [address] [place] [phone] PCP - General Family Medicine 10/03/23 Suzy Jauregui MD [address] [place] [address] Consulting Physician Vascular Surgery 04/24/24 Stonecutter Hand Relationship Specialty Start Date End Date Radha Khan MD [address] [place] [address] PCP - General Family Medicine 07/24/24 Stonecutter Hand Relationship Specialty Start Date End Date Radha Khan MD [address] [place], [place] [address] PCP - General Family Medicine 07/24/24 Stonecutter Hand Relationship Specialty Start Date End Date Radha Khan MD [address] [place] [address] PCP - General Family Medicine 07/24/24 Team [...] Active Start: April 15, 2024 Dr. Jonathon Slaas MD Other Provider Active Star t: April [...] Active Start: April 15, 2024 Dr. Abdirahman aPl MD Other Provider Active St art: April [...] Status: Inactive Member Role Status Dates Dr. Rahda Khan MD Primary Care Provider Active Start: [...] August 17, 2024 End: August 17, 2024 Stonecutter Hand Relationship Specialty Start Date End Date Radha Khan MD [address] [facility] [address] [place] [address] PCP - General Family Medicine 07/24/24 Team [...] September 16, 2024 End: September 16, 2024 Stonecutter Hand Relationship Specialty Start Date End Date Radha Khan MD [address] [facility] [address] [place] [address] PCP - General Family Medicine 07/24/24 Stonecutter Hand Relationship Specialty Start Date End Date Radha Khan MD [address] [facility] [address] [place] [address] PCP - General Family Medicine 07/24/24 Team [...] Other Provider Active Start: 2024 Dr. Kristin Byod MD Other Provider Active Start: September 27, [...] Start : September 26, 2024 Dr. Michelle Lynos MD Other Provider Active Sta rt: September [...] October 27, 2024 End: October 27, 2024 Stonecutter Hand Relationship Specialty Start Date End Date Radha Khan [address] [facility] [address] [place] [phone] PCP - General Family Medicine 10/03/23 Suzy Jauregui MD [address] [facility] [address] [place] [address] Consulting Physician Vascular Surgery 04/24/24 Stonecutter Hand Relationship Specialty Start Date End Date Radha Khan [address] [facility] [address] [place] [phone] PCP - General Family Medicine 10/03/23 Suzy Jauregui MD [address] [place] [address] Consulting Physician Vascular Surgery 04/24/24 Team Status: [...] Active Start: November 03, 2024 Dr. Rito Lundebrg MD Attending Provider Active Start: November 03, [...] Attending Provider Active Start: November 26, 2024 Stonecutter Hand Relationship Specialty Start Date End Radha Khan MD [address] [facility] [address] [place] [address] PCP - General Family Medicine 07/24/24 Team [...] Active Star t: September 26, 2024 Dr. bArahan Bejarano MD Other Provider Active St art: [...] Status: Inactive Member Role/Relationship Status Dates Dr. Rtio Lundberg MD Attending Provider Active Start: November [...] December 17, 2024 End: December 29, 2024 Stonecutter Hand Relationship Specialty Start Date End Date Radha Khan [address] [facility] [address] [place] [address] PCP - General Family Medicine 10/03/23 Suzy Jauregui MD [address] [place] [address] Consulting Physician Vascular Surgery 04/24/24 Stonecutter Hand Relationship Specialty Start Date End Date Radha Khan MD [address] [place] [address] PCP - General Family Medicine 07/24/24 Stonecutter Hand Relationship Specialty Start Date End Date Radha Khan [address] [place] [phone] PCP - General Family Medicine 10/03/23 Suzy Jauregui MD [address] [place] [address] Consulting Physician Vascular Surgery 04/24/24 Stonecutter Hand Relationship Specialty Start Date End Date Radha Khan MD [address] [place] [address] PCP - General Family Medicine 07/24/24 Stonecutter Hand Relationship Specialty Start Date End Date Radha Khan MD [address] [place] [address] PCP - General Family Medicine 07/24/24 Stonecutter Hand Relationship Specialty Start Date End Date Radha Khan [address] [place] [phone] PCP - General Family Medicine 10/03/23 Suzy Jauregui MD [address] [place] [address] Consulting Physician Vascular Surgery 1/24/25 Reason for Visit (unrecogniz ed section and content) Specialty Diagnoses / Procedures Referred By Luke rubi Referred To Contact Diagnoses carotid stenosis Procedures . Joe Rocha MD [address] [place] [address] [address] [place] [address] Referral ID Status Reason Start Date Expiration Date Visits Re quested Visits Authorized [id number] 1 1 Reason Comments New Patient New [...] 2130, Anticoagulant 2242 (Given - Provider: Dalila Hemls RN) 09 (Given - Provider: Nely Lambert [...] BE BASED ON THE PRIMARY CLINICAL RECORDS. [employer] provides no warranty or guarantee of the accuracy or completeness of information in this document.
--- NOTE | 2025-01-22 05:06 | CT_ITS ---
PROCEDURE: CHEST WITHOUT CONTRAST 01/22/2025 REASON FOR EXAM: PNA, AE CHF AND IPF. TECHNIQUE: Chest CT without contrast. Coronal and Sagittal reconstruction series were provided. One or more dose reduction techniques were used (e.g., Automated exposure control, adjustment of the mA and/or kV according to patient size, use of iterative reconstruction technique RADIATION DOSE SUMMARY: CTDI Vol 8.61 mGy DLP :291.94 mGycm COMPARISON: 26-Nov-2024 CR FINDINGS: Diffuse bilateral pulmonary interstitial and bronchial wall thickening with patchy ground glass veiling, subpleural reticular densities and atelectatic plates. No obvious pulmonary masses or consolidations. Trachea and main stem bronchi are unremarkable. Prominent mediastinal lymphadenopathy. No pleural or pericardial collections. Cardiomegaly. Aortic atheromatous calcifications. Thoracic spondylodegenerative changes. Exaggerated thoracic kyphosis. No obvious osseous lytic/sclerotic lesion is seen. The scanned upper abdominal show gall bladder layering calculi with left renal hypodense and isodense cysts. Advise sonography correlation. CT/Chest without Contrast IMPRESSION: Bilateral pulmonary interstitial lung changes with patchy ground glass veiling, thick atelectatic plates, possibly interstitial lung disease. Advise clinical correlation. No obvious pulmonary masses or consolidations. Cardiomegaly. Reading Location: [facility]
[2025-01-22] MEDS: Vancomycin HCl 2,000 MG in 0.9% Normal Saline (500mL Bag) 500 ML 250 MG IV (05:25)
[2025-01-22] MEDS: Piperacil/Tazobactam 3.375 GM in 0.9% Normal Saline (50mL MB+) 50 ML IV ×2 (05:26→13:08)
--- NOTE | 2025-01-22 05:35 | PCM.RX.CS ---
Consult Antibiotic Management Pharmacy has been consulted to manage selected antibiotic: Vancomycin Type of Intervention Type of Consult: New start Suspected Infection Suspected Infection: Pneumonia Labs Labs: Sodium 137 mmol/L (133-145) 01/22/25 02:22 Potassium 3.5 mmol/L (3.3-5.1) 01/22/25 02:22 Chloride 100 mmol/L (98-108) 01/22/25 02:22 Carbon Dioxide 21.2 mmol/L (21.0-32.0) 01/22/25 02:22 Anion Gap 16 (5-15) H 01/22/25 02:22 BUN 15 mg/dL (4-19) 01/22/25 02:22 Creatinine 0.96 mg/dL (0.70-1.20) 01/22/25 02:22 Est GFR (MDRD) Non-Af 90 (>60) 01/22/25 02:22 BUN/Creatinine Ratio 15.8 RATIO (10-20) 01/22/25 02:22 Glucose 132 mg/dL (70-99) H 01/22/25 02:22 Dosing Weight Weight used for dosin kg Estimated Creatinine Clearance Estimated Creatinine Clearance: 114 Goal Trough Goal Trough: 15-20 mcg/mL Pharmacy Plan for Drug Dosing Pharmacy Plan for Drug Dosing: Pharmacy Service will continue to monitor and adjust dosing as required. Follow-Up Labs Follow-Up Labs: Trough: Vancomycin Date/Time Labs Ordered Labs to be done on [date and time ordered]: 01/23/25 @0500
[2025-01-22] MEDS: 0.9% Normal Saline (250mL Bag) 250 ML 15 ML IV (05:46)
[2025-01-22] MEDS: 0.9% Saline Lock 10 ML Syringe IV ×5 (05:49→15:13)
[2025-01-22 06:21] LABS: Troponin T High Sens 4 HR 73 ng/L (<=22)
[2025-01-22] MEDS: dexMEDEtomidine 400 MCG in 0.9% Normal Saline (100mL Bag) 96 ML 18 MCG CONT INF ×2 (06:31→12:21)
--- NOTE | 2025-01-22 06:34 | NURSING ---
Blood cultures x2 drawn prior to antibiotics being started infusing.
--- NOTE | 2025-01-22 06:52 | ED.RN ---
0630a with patient permission we disconnected his insulin pump since he would be getting a sedative and would not be able to manage his own pump.
[2025-01-22 07:17] LABS: Cholesterol 113 mg/dL (<=200); Low Density Lipoprotein Calc. 39 mg/dL; Triglycerides 176 mg/dL; Very Low Density Lipoprotein 35 mg/dL (5-40); cholesterol:hdl ratio screen 2.51
[2025-01-22 07:46] LABS: Iron 31 ug/dL (65-175); Iron Binding Capacity,Total 285 ug/dL (250-450); Iron Binding Capacity,Unsat 254 ug/dL (228-428); Magnesium 2.1 mg/dL (1.5-2.2)
[2025-01-22 07:48] LABS: Ferritin 1531 ng/mL (37-417); Vitamin B12 > 4000 pg/mL (180-914)
[2025-01-22] MEDS: Pantoprazole Sodium 40 MG in 0.9% Normal Saline (100mL MB+) 100 ML 330 MG IV (08:47)
[2025-01-22 09:07] LABS: FOLATES,SERUM (FOLIC ACID) 10.50 ng/mL (4.60-34.80)
--- NOTE | 2025-01-22 09:52 | CON.PCM.CC_ITS ---
Assessment & Plan Assessment/Plan (1) Acute on chronic hypoxic respiratory failure: PLAN: Plan RECOMMENDATIONS: 1. Okay to wean patient from BiPAP to nasal cannula oxygen. Goal to maintain saturations 88 to 92%. 2. Continue empiric antimicrobials, pending infectious workup. 3. Ongoing diuresis as tolerated by hemodynamics and renal function. 4. Continue Eliquis per home regimen. 5. Obtain palliative care consultation. IMPRESSIONS: 1. Acute on chronic hypoxemic respiratory failure Most likely multifactorial in etiology with progression of his underlying interstitial lung process contributing along with possible infection and edema. The patient is currently followed by an ILD specialist at [facility] and apparently underwent cryobiopsy which revealed evidence of IPF. Although the patient is being considered for an antifibrotic agent, he appears more end- stage at this time. The patient has a baseline oxygen requirement of 4 L/min at rest and 8 L with exertion. At this time, I agree with treating potential reversible causes including antibiotics for pneumonia and diuretics for pulmonary edema. Ultimately, the patient is unlikely to benefit from corticosteroids. Given the severity of his pulmonary disease, will obtain palliative care consultation as well. 2. History of obstructive sleep apnea Continue nocturnal BiPAP therapy per home regimen with a pressure support of 11/6 cm of water with 2 L/min bleed. 3. Heart failure with preserved ejection fraction Continue attempts at ongoing diuresis, as tolerated by hemodynamics and renal function. 4. History of paroxysmal atrial fibrillation/history of CVA/anemia/obesity/hypertension/anxiety Complicates care, management, recovery and prognosis. Continue supportive care as noted above. Recommend weaning the patient off of Precedex. Palliative care consultation will be obtained to assist with symptom management of his anxiety along with assistance regarding clarification of his goals of care. CODE STATUS: DNR CCA without intubation This note was generated with [employer] dictation software. It may contain incorrect words, spelling, and punctuation that were not noted in checking the note before signing. HPI Consult Data Date of Consult: 01/22/25 HPI Narrative Reason for Consultation: Respiratory failure HPI Narrative: The patient is a 59-year-old male, with a history as outlined below, who presented to the emergency department on January 22 via EMS with complaints of shortness of breath. The patient has a known history of iron deficiency anemia, chronic heart failure with preserved ejection fraction, paroxysmal atrial fibrillation, history of CVA, obstructive sleep apnea, chronic hypoxemic respiratory failure (4 L at rest and 8 L with exertion), along with progressive interstitial lung disease. The patient is currently followed by a commercial green building architect at [facility], having last been evaluated in October 2024, at which time there were plans to proceed with a slow downward titration of his prednisone therapy with consideration for Esbriet initiation. The patient was felt to be too high risk to proceed with a VATS. Therefore, cryobiopsy was being considered. The patient was able to confirm that he ultimately underwent the biopsy which demonstrated findings consistent with IPF. On presentation to the emergency department, the patient was documented to be afebrile but was tachycardic and tachypneic with a presenting blood pressure of 142/84 mmHg. Laboratory evaluation was notable for a white blood cell count of 14,000 with a hemoglobin of 8.0 g/dL and platelet count of 251,000. Arterial blood gas was notable for a pH of 7.46 with a pCO2 of 32 and pO2 of 56. Chemistry profile was unremarkable. Lactate was normal. Troponin was mildly elevated at 56 with a BNP of 4221. CT chest demonstrated mosaic attenuation with diffuse bilateral ground glass subpleural reticular densities. Respiratory viral panel was negative. The patient was subsequently placed on empiric antimicrobials along with scheduled diuretics. Due to his anxiety and increased work of breathing, BiPAP was initiated. The patient was admitted to the medical intensive care unit for further management. Although the patient was initially admitted with a full CODE STATUS, I had a concha discussion with him this morning regarding goals of care. Following my discussion with the patient, he was in agreement to transition to DNR CCA without intubation. [facility] Medical History (Updated 01/22/25 @ 04:[address] 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 Chronic respiratory failure with hypoxia Paroxysmal atrial fibrillation Chronic respiratory failure Chronic ulcer of thigh with fat layer exposed Microalbuminuria due to type 2 diabetes mellitus Hypoxemia Rheumatoid factor positive Hyperlipidemia Elevated troponin 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 with hyperglycemia Renal insufficiency Interstitial lung disease Ischemic cerebrovascular accident (CVA) CHF (congestive heart failure) KIANNA (obstructive sleep apnea) Presence of insulin pump CKD (chronic kidney disease) Hypothyroidism Essential (primary) hypertension Diabetes Acute hypoxemic respiratory failure Chronic diastolic CHF (congestive heart failure) Obesity Exertional shortness of breath Iron deficiency anemia due to chronic blood loss Atherosclerotic heart disease of [place] coronary artery without angina pectoris Mini stroke (~10/01/23) Peripheral vestibulopathy Cranial nerve disorder Polyneuropathy Wears glasses Depression Anxiety Cancer Thyroid disease Insulin dependent diabetes mellitus Arthritis History of renal disease Prostate disease Gastric reflux CPAP (continuous positive airway pressure) dependence Sleep apnea Shortness of breath on exertion History of echocardiogram History of stress test History of CHF (congestive heart failure) Cardiology follow-up encounter History of atrial fibrillation Neuropathy Multiple thyroid nodules Microalbuminuria Thyroid nodule Double vision Non-proliferative diabetic retinopathy KIANNA treated with BiPAP Vertigo Congestive heart failure (CHF) Low testosterone Carotid stenosis High cholesterol Vision loss of right eye Vision loss of left eye Anemia Non-smoker Atrial fibrillation Hypertension Polyneuropathy due to type 2 diabetes mellitus History of non-ST elevation myocardial infarction (NSTEMI) (03/28/20) TIA (transient ischemic attack) (2018) Hodgkin disease GERD (gastroesophageal reflux disease) BPH (benign prostatic hyperplasia) Anxiety and depression Morbid obesity with BMI of 45.0-49.9, adult Nephrolithiasis Diabetes mellitus, type II Home Medications Medication Instructions Recorded Last Taken Type tamsulosin 0.4 mg capsule 0.4 mg PO DAILY prostate 12/1509/26/24 History duloxetine 60 mg capsule,delayed 60 mg PO DAILY depres wanda 04/17/18 09/26/24 History release (Cymbalta) blood-glucose,congregational care pastor,cont #1 ea 07/26/20 Unknown Rx (Dexcom G6 Printing Supervisor) blood-glucose transmitter (Dexcom #1 ea 12/29/21 Unkno wn Rx G6 Transmitter device) infusion set for insulin pump 10/08/22 Unknown Histor y insulin pump controller 10/08/22 Unknown History blood-glucose sensor (Dexcom G6 #1 ea 02/25/23 Unknown Rx Sensor device) insulin regular hum U-500 conc 500 75 unit (0.15 mL) c ontinuous 11/11/23 09/26/24 Rx unit/mL subcutaneous soln (Humulin subcutaneous infusi on DAILY blood R U-500 (Concentrated) Insulin) sugar #20 mL metoprolol succinate 100 mg 100 mg PO DAILY heart #90 tabs 03/27/24 09/26/24 Rx tablet,extended release 24 hr lisinopril 40 mg tablet 40 mg PO DAILY blood pressur e 04/12/24 09/26/24 History pantoprazole 40 mg tablet,delayed 40 mg PO BID acid re flux #60 tabs 07/22/24 09/26/24 Rx release (Protonix) empagliflozin 25 mg tablet 25 mg PO DAILY diabetes #30 tabs 08/12/24 09/26/24 Rx (Jardiance) apixaban 5 mg tablet (Eliquis) 5 mg PO BID blood thinn er #180 tabs 08/31/24 09/26/24 Rx fenofibrate 54 mg tablet 134 mg PO QDAY 10/27/24 Unkn own History albuterol sulfate 2.5 mg/3 mL 2.5 mg inhalation Q4H MT N 11/25/24 Unknown History (0.083 %) solution for nebulization shortness of breat h or wheezing levothyroxine 125 mcg tablet 125 mcg PO QDAY 11/25/24 Unknown History pirfenidone 267 mg tablet 801 mg PO TID breathing 10/31 10/23 Unknown History acetaminophen 500 mg tablet 1,000 mg (2 x 500 mg) PO Q 8 PRN 11/28/24 Unknown Rx pain #0 tabs oxycodone-acetaminophen 5 mg-325 1 tab PO TID PRN PRN pain 12/17/24 Unknown History mg tablet rosuvastatin 40 mg tablet 40 mg PO DAILY 12/17/24 Unkn own History sennosides 8.6 mg-docusate sodium 1 tab PO DAILY const ipation 12/17/24 Unknown History 50 mg tablet (Senexon-S) ticagrelor 90 mg tablet 90 mg PO BID 12/17/24 Unknow n History aspirin 81 mg chewable tablet 324 mg PO BREAKFAST 12/01 07/24 Unknown History furosemide 40 mg tablet (Lasix) 80 mg PO DAILY diureti c 12/23/24 Unknown History atorvastatin 80 mg tablet (Lipitor) 80 mg PO QHS 01/12 Unknown History buspirone 10 mg tablet 10 mg PO TID Anxiety 5 Unknown History duloxetine 40 mg capsule,delayed 40 mg PO QDAY 5 Unknown History release oxybutynin chloride 5 mg tablet 5 mg PO BID PRN bladde r spasms 01/12/25 Unknown History alprazolam 0.5 mg tablet 0.5 mg PO TID PRN anxiety Unknown History furosemide 40 mg tablet (Lasix) 40 mg PO 1500 PRN carla a 01/22/25 Unknown History Allergy/AdvReac Type Severity Reaction Status Date / Time metoclopramide HCl (From Allergy Severe Anaphylaxis Verified 01/22/25 02:00 Sara) Family History Brother Heart disease Mother CVA (cerebral vascular accident) Hypertension Rheumatoid arthritis Father Diabetes Other Alcohol abuse ulcer disease Surgical History History of cardiac catheterization History of lymph node excision History of left heart catheterization (2009) Hx of nephrolithotomy with removal of calculi History of thoracentesis (2016) Social History household members: spouse and none pets and animals: Yes Smoking Status: Never smoker Electronic Cigarette Use: not used second hand exposure: No alcohol intake: never substance use type: does not use what type of physical activity do you participate in: none ROS ROS Narrative 10 systems were reviewed with pertinent positives as noted in the HPI above. Physical Exam Const alert and no apparent distress Constitutional Narrative: Resting comfortably in bed with BiPAP in place. Obese. General Appearance: cooperative HEENT normocephalic and head/scalp atraumatic Eyes PERRL, EOMs intact bilaterally and conjunctivae normal Neck supple General: trachea midline Chest inspection of chest normal Resp Resp Narrative: Crackles bilaterally Effort and Inspection: able to speak in complete sentences and tachypneic Auscultation: diminished lung sounds Cardio regular rate and regular rhythm GI normal to inspection, nondistended, normoactive bowel sounds Extremity no clubbing, cyanosis or edema Skin no rashes or lesions noted Neuro CN's II-XII intact bilaterally, moves all extremities and no focal motor deficits Psych Mood & Affect: flat affect Lab / Micro Data 01/22/25 02:22 01/22/25 02:22 Labs: Laboratory Results - last 24 hr 01/22/25 02:22: WBC 14.1 H, RBC 3.13 L, Hgb 8.0 L, Hct 26.5 L, MCV 84.7, MCH 25.6 L, MCHC 30.2 L, RDW Std Deviation 59.4 H, RDW Coeff of Gavi 19.6 H, Plt Count 251, MPV 9.3, Immature Gran % (Auto) 1.000 H, Neut % (Auto) 80.0 H, Lymph % (Auto) 8.0 L, Hardin % (Auto) 9.9, Eos % (Auto) 0.6, Baso % (Auto) 0.5, Absolute Neuts (auto) 11.3 H, Absolute Lymphs (auto) 1.13, Nucleated RBC % 0.2, Sodium 137, Potassium 3.5, Chloride 100, Carbon Dioxide 21.2, Anion Gap 16 H, BUN 15, Creatinine 0.96, Estim Creat Clear Calc 114.32, Est GFR (MDRD) Non-Af 90, BUN/Creatinine Ratio 15.8, Glucose 132 H, Calcium 8.8, Troponin T High Sens 56 H*, NT pro BNP II 4221 H 01/22/25 04:22: Troponin T Hi Sens 2 Hr 69 H* 01/22/25 05:50: Lactic Acid 1.3, Phosphorus 2.3 L, Magnesium 2.1, Iron 31 L, TIBC 285, Iron Saturation 10.8, Unsaturated IBC 254, Ferritin 1531 H, Troponin T Hi Sens 4Hr 73 H*, Triglycerides 176, Cholesterol 113, LDL Cholesterol, Calc 39, VLDL Cholesterol 35, HDL Cholesterol 45, Cholesterol/HDL Ratio 2.51, Vitamin B12 > 4000 H, TSH 0.972 01/22/25 05:56: POC Glucose 136 H 01/22/25 08:08: Serum Folate 10.50 ABG Data ABG results: ABG 01/22/25 02:20 Specimen Type ART Sample Site R Radial pH 7.46 H Bicarbonate Actual 23.0 Total CO2 24 Base Excess -1 O2 Saturation 91 L O2 % 60.0 ABG pCO2 32.3 L ABG pO2 56 L Brennon Test Positive Respiration Rate 12 O2 Delivery Device BiPAP Vent Mode Not entered Clinical Comments 16. 10. 60% Rhythm Strip Rhythm Strip: Sinus Tach Rate: 111 Ectopy: None Imaging Radiology Impression Chest X-Ray 01/22/25 02:50 IMPRESSION: Unchanged chronic interstitial pulmonary thickening. Unchanged bilateral widespread pulmonary infiltrates, possibly presenting alveolitis from active interstitial lung disease and/or superimposed pneumonia. There is no demonstrated pleural abnormality. Enlarged cardiac silhouette. [facility] 01/22/25 05:06 IMPRESSION: Bilateral pulmonary interstitial lung changes with patchy ground glass veiling, thick atelectatic plates, possibly interstitial lung disease. Advise clinical correlation. No obvious pulmonary masses or consolidations. Cardiomegaly. Reading Location: [id number] Charges/Coding Visit Charges Inpatient E&M: 22412 Init Hosp L3
--- NOTE | 2025-01-22 10:46 | CASEMGMT ---
Addendum entered by Ilia Morris 01/22/25 14:31: This insurance writer was notified by [facility] Palliative Care liaison that the pt is wanting Hospice IPU admission urgently. SW notified and plans to make referral. Hospitalist and supervisor boilermaking shop are aware. Addendum entered by Ilia Morris 01/22/25 11:36: Betina from [employer] returns response stating "Mr. Ga was a previous palliative patient, until 12/01/24. He was admitted to the hospital around that time, during which his had called hospice due to needing more help in the home than what palliative provides. He did enroll with hospice on 12/01 and then revoked services on 12/02 stating they had changed their minds and didn't need the help anymore now that they have assistance from their daughter. Our hospice is currently making weekly or so phone calls to the pt/family to check in on him." SW notified. Care Management to continue to follow. Original Note: RN JAZMINE Assessment Face to Face with patient for initial transition planning/care coordination assessment. RN JAZMINE introduced self and role at [facility], pt voices understanding. Pt is A&Ox4 and is resting comfortably in bed and is calm. Pt's nurse attempted to switch pt from BiPAP to NC. However, pt was unable to tolerate and quickly desats to 83%. BiPAP placed back on by the nurse. Care providers, pharmacy, and demographics verified. Admitting dx: PNA and AE CHF LACE Strata: 3 PCP: [facility] Specialists: [facility], RYAN, Soo (Neuro), Rufina ( Pulm) Preferred Pharmacy: [facility] Insurance: MMO Prescription Benefit: Yes LNOK: Michaelle (W), Ayaz (Daughter) Living Arrangements: Pt lives with his in a ranch style home with 2-3 steps to enter ADLs/IADLs: Pt reports that he requires assistance and that his and daughter are able to help him Transportation: , daughter DME: Home oxygen through [employer]. 4lpm cont, 8lpm w/exertion, 2lpm bleed into PAP and 11/5 cm w 2 lpm bled in. Pt has a concentrator, portable tanks, pulse ox, inhaler, and nebulizer. Pt also has a CBGM with sensors. Pt has a back up manual BGM with sufficient supplies. Pt has a lift chair, adjustable bed, FWW, Cane, Rollator, BP Machine, BSC, shower bench, and Grab bars. HHC/SNF: denies hx of Pt’s goal: TBD Plan: TBD. Hospitalist reports the pt will be here through the weekend. Per ICU rounds, PT to be help today. Cardio consut. Follow oxygen demands. At this time, the pt states that it is too early to tell what he will need or want at the time of DC. Per chart review, pt was set up with [facility] Palliative [facility]. Pt states that he is unsure if he is still active with them or not. EMail sent to [facility] to confirm. Pt denies further questions or concerns at this time. CM to follow. Alexandre Morris RN, CM
--- NOTE | 2025-01-22 12:52 | CON.PCM.PA_ITS ---
[facility] Medical History (Updated 01/22/25 @ 14:52 by Sushma Devine NP-Surinder) Morbid obesity with BMI of 45.0-49.9, adult Current use of rodent exterminator anticoagulation Chronic respiratory failure with hypoxia Paroxysmal atrial fibrillation Chronic respiratory failure Chronic ulcer of thigh with fat layer exposed Microalbuminuria due to type 2 diabetes mellitus Hypoxemia Rheumatoid factor positive Hyperlipidemia Elevated troponin 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 with hyperglycemia Renal insufficiency Interstitial lung disease Ischemic cerebrovascular accident (CVA) CHF (congestive heart failure) KIANNA (obstructive sleep apnea) Presence of insulin pump CKD (chronic kidney disease) Hypothyroidism Essential (primary) hypertension Diabetes Acute hypoxemic respiratory failure Chronic diastolic CHF (congestive heart failure) Obesity Exertional shortness of breath Iron deficiency anemia due to chronic blood loss Atherosclerotic heart disease of [place] coronary artery without angina pectoris Mini stroke (~10/01/23) Peripheral vestibulopathy Cranial nerve disorder Polyneuropathy Wears glasses Depression Anxiety Cancer Thyroid disease Insulin dependent diabetes mellitus Arthritis History of renal disease Prostate disease Gastric reflux CPAP (continuous positive airway pressure) dependence Sleep apnea Shortness of breath on exertion History of echocardiogram History of stress test History of CHF (congestive heart failure) Cardiology follow-up encounter History of atrial fibrillation Neuropathy Multiple thyroid nodules Microalbuminuria Thyroid nodule Double vision Non-proliferative diabetic retinopathy KIANNA treated with BiPAP Vertigo Congestive heart failure (CHF) Low testosterone Carotid stenosis High cholesterol Vision loss of right eye Vision loss of left eye Anemia Non-smoker Atrial fibrillation Hypertension Polyneuropathy due to type 2 diabetes mellitus History of non-ST elevation myocardial infarction (NSTEMI) (03/28/20) TIA (transient ischemic attack) (2019) Hodgkin disease GERD (gastroesophageal reflux disease) BPH (benign prostatic hyperplasia) Anxiety and depression Morbid obesity with BMI of 45.0-49.9, adult Nephrolithiasis Diabetes mellitus, type II Home Medications Medication Instructions Recorded Last Taken Type tamsulosin 0.4 mg capsule 0.4 mg PO DAILY prostate 12/1509/26/24 History duloxetine 60 mg capsule,delayed 60 mg PO DAILY depres wanda 04/17/18 09/26/24 History release (Cymbalta) blood-glucose,miner,cont #1 ea 07/26/20 Unknown Rx (Dexcom G6 Director Of Web Marketing) blood-glucose transmitter (Dexcom #1 ea 12/29/21 Unkno wn Rx G6 Transmitter device) infusion set for insulin pump 10/08/22 Unknown Histor y insulin pump controller 10/08/22 Unknown History blood-glucose sensor (Dexcom G6 #1 ea 02/25/23 Unknown Rx Sensor device) insulin regular hum U-500 conc 500 75 unit (0.15 mL) c ontinuous 11/11/23 09/26/24 Rx unit/mL subcutaneous soln (Humulin subcutaneous infusi on DAILY blood R U-500 (Concentrated) Insulin) sugar #20 mL metoprolol succinate 100 mg 100 mg PO DAILY heart #90 tabs 03/27/24 09/26/24 Rx tablet,extended release 24 hr lisinopril 40 mg tablet 40 mg PO DAILY blood pressur e 04/12/24 09/26/24 History pantoprazole 40 mg tablet,delayed 40 mg PO BID acid re flux #60 tabs 07/22/24 09/26/24 Rx release (Protonix) empagliflozin 25 mg tablet 25 mg PO DAILY diabetes #30 tabs 08/12/24 09/26/24 Rx (Jardiance) apixaban 5 mg tablet (Eliquis) 5 mg PO BID blood thinn er #180 tabs 08/31/24 09/26/24 Rx fenofibrate 54 mg tablet 134 mg PO QDAY 10/27/24 Unkn own History albuterol sulfate 2.5 mg/3 mL 2.5 mg inhalation Q4H AR N 11/25/24 Unknown History (0.083 %) solution for nebulization shortness of breat h or wheezing levothyroxine 125 mcg tablet 125 mcg PO QDAY 11/25/24 Unknown History pirfenidone 267 mg tablet 801 mg PO TID breathing 10/31 10/23 Unknown History acetaminophen 500 mg tablet 1,000 mg (2 x 500 mg) PO Q 8 PRN 11/28/24 Unknown Rx pain #0 tabs oxycodone-acetaminophen 5 mg-325 1 tab PO TID PRN PRN pain 12/17/24 Unknown History mg tablet rosuvastatin 40 mg tablet 40 mg PO DAILY 12/17/24 Unkn own History sennosides 8.6 mg-docusate sodium 1 tab PO DAILY const ipation 12/17/24 Unknown History 50 mg tablet (Senexon-S) ticagrelor 90 mg tablet 90 mg PO BID 12/17/24 Unknow n History aspirin 81 mg chewable tablet 324 mg PO BREAKFAST 12/01 07/24 Unknown History furosemide 40 mg tablet (Lasix) 80 mg PO DAILY diureti c 12/23/24 Unknown History atorvastatin 80 mg tablet (Lipitor) 80 mg PO QHS 01/12 Unknown History buspirone 10 mg tablet 10 mg PO TID Anxiety 5 Unknown History duloxetine 40 mg capsule,delayed 40 mg PO QDAY 5 Unknown History release oxybutynin chloride 5 mg tablet 5 mg PO BID PRN bladde r spasms 01/12/25 Unknown History alprazolam 0.5 mg tablet 0.5 mg PO TID PRN anxiety Unknown History furosemide 40 mg tablet (Lasix) 40 mg PO 1500 PRN carla a 01/22/25 Unknown History Allergy/AdvReac Type Severity Reaction Status Date / Time metoclopramide HCl (From Allergy Severe Anaphylaxis Verified 01/22/25 02:00 Reglan) Family History Brother Heart disease Mother CVA (cerebral vascular accident) Hypertension Rheumatoid arthritis Father Diabetes Other Alcohol abuse ulcer disease Surgical History History of cardiac catheterization History of lymph node excision History of left heart catheterization (2009) Hx of nephrolithotomy with removal of calculi History of thoracentesis (2015) Social History household members: spouse and none pets and animals: Yes Smoking Status: Never smoker Electronic Cigarette Use: not used second hand exposure: No alcohol intake: never substance use type: does not use what type of physical activity do you participate in: none ROS Review of Systems ROS Unobtainable: due to mental condition Physical Exam Const alert Constitutional Narrative: Patient is very anxious and is oriented to person and place he knew his but it was difficult in assessing as he has improved distress. HEENT normocephalic Eyes Eyes Narrative: Wears corrective lenses Lymph Lymphatic: lymphedema Resp Effort and Inspection: tachypneic and uses accessory muscles Auscultation: wheezes and diminished lung sounds Cardio Rate: tachycardic GI normal to inspection, nondistended, normoactive bowel sounds Extremity General Extremity: edema Skin no rashes or lesions noted Neuro CN's II-XII intact bilaterally Psych Activity / Motor Behavior: restless Mood & Affect: anxious Charges/Coding Palliative Care Palliative Care: 40442 New Pt Consult 80+ min HPI Current admission Current Code Status: DNRCC-A Associated Diagnosis: IPF Consult Data Date of Consult: 01/22/25 Location of consult: ICU Reason for referral: goals of care Referral source: Dr Rodriguez Palliative care diagnosis (Summary list): IPF Palliative care services/treatment (Accepted, as consult): goals of care HPI Narrative HPI Narrative: PAIN ASSESSMENT unable to verify Prior to meeting with the patient at bedside I reviewed labs and radiological studies also reviewed documentation from previous visits as well as oncology and pulmonary. Patient has history of idopathic pulmonary fibrosis lung disease which has progressed significantly in the last 3 months. He was admitted to the 01/22 for increased shortness of breath and confusion. He has had multiple admissions over the last several months which included: 628-630 for CVA, 828-830 for cellulitis, 924 for TIA. Patient was reportedly on hospice services previously but patient's family feels that they were unaware of what that entailed and they were not ready for the service at that time. Prior to meeting with Krunal at bedside I met with his , Michaelle in the family room. Introduced myself and palliative care which she voluntarily excepted our services. Michaelle was updated on Krunal's current projection on his IPF and his transition to high flow nasal cannula and BiPAP. During my conversation with her I provided education on palliative care outpatient services as well as what she could expect from hospice. She did request to speak with Dr. Rodriguez also to talk about prognostication in which he was able to do. Patient's asked if she could include her daughter Tia in the conversation in which we did get her on speaker phone. I explained the same information to the TM that I explained to her mother. Both the patient's daughter and requested that his current web operations specialist at [facility] be contacted in which Dr. Rodriguez said he would do. Patient's family was deciding between hospice or giving Krunal a couple of days to see how he does. Myself and Michaelle then went to talk to Krunal and do assessment. Krunal was in severe respiratory distress, maxed out on BiPAP and Precedex. Michaelle that he had a talk with him in which she stated "I am dying I want to be comfortable." Michaelle then confirmed with him that these are his wishes and stated she wished to make him comfortable. Since he wishes is to transfer Krunal to the IPU at [facility]. I then reached out to [facility] to update them on the patient's current status. I was able to perform a brief assessment on the patient but was unable to do a review of systems. All questions the patient's and daughter had were answered. I did update Dr. Rodriguez and social service technician about family request for emergent referral to life care for their inpatient unit. per sales order processor, Dr. Rodriguez 01/22/25: "Most likely multifactorial in etiology with progression of his underlying interstitial lung process contributing along with possible infection and edema. The patient is currently followed by an ILD specialist at [facility] and apparently underwent cryobiopsy which revealed evidence of IPF. Although the patient is being considered for an antifibrotic agent, he appears more end-stage at this time. The patient has a baseline oxygen requirement of 4 L/min at rest and 8 L with exertion. At this time, I agree with treating potential reversible causes including antibiotics for pneumonia and diuretics for pulmonary edema. Ultimately, the patient is unlikely to benefit from corticosteroids. Given the severity of his pulmonary disease, will obtain palliative care consultation as well." per hospitalist on admission: "KRUNAL LEOS, is a 59 M with a past medical history of essential hypertension; on lisinopril, metoprolol and furosemide, hyperlipidemia; on rosuvastatin plus fenofibrate, hypothyroidism; on levothyroxine, morbid (class III) obesity; with BMI of 46.9 this admission, KIANNA; on BiPAP, DM-2; of unknown control on empagliflozin and insulin pump, CAD; s/p NSTEMI (2019); on ECASA and ticagrelor BID followed by Dr. Hanna of [facility], PAF; on apixaban BID, history of IPF; with chronic hypoxic respiratory failure on 8L NC and pirfenidone TID followed by pulmonology at [facility], history of chronic stage I diastolic CHF; with preserved LVEF ~60% with no valvular abnormalities, PFO, pericardial effusion (on echocardiogram done here on September 28, 2024), history of thoracentesis, chronic LE edema, history of TIA's/CVA, history of ~70% Left carotid stenosis, history of Hodgkin's lymphoma; s/p chemotherapy and radiation, history of REEMA; currently not on treatment, OAB; on oxybutynin, BPH; on tamsulosin, depression; on duloxetine and buspirone TID prn anxiety, history of vertigo, GERD; on pantoprazole BID and OA; on oxycodone-acetaminophen TID prn who presents to [facility] ER complaining of respiratory distress. Mr. Leos cannot give a full history at this time as he was immediately started on BiPAP shortly after arrival so the bulk of information was gathered from chart, medical staff and computer. According to the records his informed the ER physician he has been having SOB for the past few days that has progressively worsened in spite of taking his furosemide as prescribed. His SOB was made worse by exertion and laying down but eventually persisted even at rest so his family decided to have him brought in for further evaluation and treatment. He also admits to increased cough and an episode of epistaxis earlier in the day that resolved spontaneously. He denies worsening LE edema, chest pain, palpitations, heart racing, fever, chills, abdominal pain, nausea, vomiting, diarrhea, constipation, dysuria, hematuria, headache or rash. In the ER he was noted to have Leukocytosis of 14.5K with Left-shift of 1% due to suspected Pneumonia complicated by elevated NT pro-BNP II of 4,221 pg/mL present on admission consistent with superimposed AE of chronic diastolic CHF; with preserved LVEF combining to cause clinical evidence of Acute Hypoxic Respiratory Failure requiring BiPAP with ABG 7.46/ PCO2 32.3 mmHg/ PO2 56 mmHg/ HCO3 23 mmol/L @ 91% on BiPAP 12 with FiO2 60% compounded by mildly elevated initial troponin T of 56 ng/L with a corresponding CXR that revealed suspected Pneumonia and AE CHF in the setting of chronic IPF. He was then admitted to the ICU for ongoing care for a stay that is expected to extend beyond 2 midnights. Palliative Assessment Advanced Directive - Current Admission Advance Directive: Advance Directive ON ADMISSION - REFERENCE 3 Do you have a Healthcare Yes 01/22/25 05:31 Living Will? Is a Healthcare Living Will Yes, It is scanned in 01/22/25 05:31 present in the medical record? Do you have a Healthcare Power No 01/22/25 05:31 of Safety Deposit Supervisor? Is a Healthcare Power of Yes, It is scanned in 01/22/25 02:39 Safety Deposit Supervisor present in the medical rec Do You Want Additional Declined 01/22/25 05:31 Information on Advanced Directives or Healthcare Proxy/DPOA comments: Naseem Braswell Psychosocial/Spiritual Information Living situation/Marital status: and lives with Michaelle Geographic location: [place] Supports: Family and friends Rastafarian/Mary or spiritual preference: Roman Catholic Spiritual distress: Patient has told the that he is afraid to . I did ask if she would like our pastoral services to meet with Krunal but she denied and stated that they have a reheater helper that they are very close with and she would contact him Prior functional status: Patient is mostly bed or wheelchair bound Assistive devices at home: Patient has walker wheelchair and transport wheelchair Cultrual issues: None Information about the patient as a person: Patient is very close with his granddaughter, Zaria. Symptoms Palliative performance scale: 30% Palliative prognostic index: 15 Dyspnea symptoms: Severe Cough symptoms: Moderate Fatigue symptoms: Severe Weakness symptoms: Severe Confusion symptoms: Moderate Objective Data Objective Data Vital Signs: Vital Signs Temp Pulse Resp BP Pulse Ox O2 Del Method FiO2 97 F L 81 25 H 112/51 L 98 Bi-pap 50 01/22/25 10:00 01/22/25 11:00 01/22/25 11:00 01/22/25 11:00 01/22/25 11:00 01/22/25 11:26 01/22/25 11:26 Oxygen Delivery Method Bi-pap Weight: 244 lb 11.41 oz Body Mass Index (BMI) 36.1 Intake & Output: Intake and Output for Last 24 Hours 01/20/25 01/21/25 01/22/25 23:59 23:59 23:59 Intake Total 1290 / 1290 Output Total 1650 / 1650 Balance -360 / -360 Lab / Micro Data Attestation: I reviewed the patient's lab results. 01/22/25 02:22 01/22/25 02:22 Labs: Laboratory Results - last 24 hr 01/22/25 02:22: WBC 14.1 H, RBC 3.13 L, Hgb 8.0 L, Hct 26.5 L, MCV 84.7, MCH 25.6 L, MCHC 30.2 L, RDW Std Deviation 59.4 H, RDW Coeff of Gavi 19.6 H, Plt Count 251, MPV 9.3, Immature Gran % (Auto) 1.000 H, Neut % (Auto) 80.0 H, Lymph % (Auto) 8.0 L, Tama % (Auto) 9.9, Eos % (Auto) 0.6, Baso % (Auto) 0.5, Absolute Neuts (auto) 11.3 H, Absolute Lymphs (auto) 1.13, Nucleated RBC % 0.2, Sodium 137, Potassium 3.5, Chloride 100, Carbon Dioxide 21.2, Anion Gap 16 H, BUN 15, Creatinine 0.96, Estim Creat Clear Calc 114.32, Est GFR (MDRD) Non-Af 90, BUN/Creatinine Ratio 15.8, Glucose 132 H, Calcium 8.8, Troponin T High Sens 56 H*, NT pro BNP II 4221 H 01/22/25 04:22: Troponin T Hi Sens 2 Hr 69 H* 01/22/25 05:50: Lactic Acid 1.3, Phosphorus 2.3 L, Magnesium 2.1, Iron 31 L, TIBC 285, Iron Saturation 10.8, Unsaturated IBC 254, Ferritin 1531 H, Troponin T Hi Sens 4Hr 73 H*, Triglycerides 176, Cholesterol 113, LDL Cholesterol, Calc 39, VLDL Cholesterol 35, HDL Cholesterol 45, Cholesterol/HDL Ratio 2.51, Vitamin B12 > 4000 H, TSH 0.972 01/22/25 05:56: POC Glucose 136 H 01/22/25 08:08: Serum Folate 10.50 Micro: Microbiology 01/22/25 10:40 Urine, Random Legionella Antigen - Final 01/22/25 10:40 Urine, Random Streptococcus pneumoniae Antigen (M - Final 01/22/25 07:15 Mucosa - Nasopharyngeal Respiratory Panel (PCR) - Final ABG Data ABG results: ABG 01/22/25 02:20 Specimen Type ART Sample Site R Radial pH 7.46 H Bicarbonate Actual 23.0 Total CO2 24 Base Excess -1 O2 Saturation 91 L O2 % 60.0 ABG pCO2 32.3 L ABG pO2 56 L Brennon Test Positive Respiration Rate 12 O2 Delivery Device BiPAP Vent Mode Not entered Clinical Comments 16. 10. 60% Radiography Diagnostic Testing: Radiology Impression Chest X-Ray 01/22/25 02:50 IMPRESSION: Unchanged chronic interstitial pulmonary thickening. Unchanged bilateral widespread pulmonary infiltrates, possibly presenting alveolitis from active interstitial lung disease and/or superimposed pneumonia. There is no demonstrated pleural abnormality. Enlarged cardiac silhouette. [facility] 01/22/25 05:06 IMPRESSION: Bilateral pulmonary interstitial lung changes with patchy ground glass veiling, thick atelectatic plates, possibly interstitial lung disease. Advise clinical correlation. No obvious pulmonary masses or consolidations. Cardiomegaly. Reading Location: [place] [address] Rhythm Strip Rhythm Strip: Sinus Tach Rate: 141 Ectopy: None Impressions & Recommendations Patient & Family Issues discussed with the patient and family: Goals of care going forward Patient goal: Patient has requested comfort Family goal: After an extensive discussion with the patient's family they have elected comfort and life care inpatient unit Ethical & Legal Ethical and legal: Patient is confused and requires to make decisions Impressions Impressions: Patient is currently in respiratory distress and would benefit from comfort measures Recommentation Palliative recommendations: Inpatient IPU Encouter Achieved as a result of this Palliative Care Encounter: [ [id number], [id number]] minutes were spent in total for this visit which consisted, primarily of counseling and education dealing with the complex and emotionally intense issues of symptom management and palliative care in the setting of serious and potentially life-threatening illness. Review of documentation, labs and radiological studies. Patient/family had the opportunity to ask questions Plan (1) Acute on chronic hypoxic respiratory failure: PLAN: Medical management per primary team (2) Pneumonia: QUALIFIERS: Pneumonia type: due to unspecified organism L aterality: bilateral Lung location: unspecified part of lung Qualified Code(s): J18.9 - Pneumonia, unspecified organism PLAN: Medical management per primary team (3) Interstitial lung disease: PLAN: Medical management per primary team (4) Chronic diastolic CHF (congestive heart failure): PLAN: Medical management per primary team (5) Acute on chronic respiratory failure with hypoxemia: PLAN: Medical management per primary team (6) Palliative care encounter: PLAN: *Extensive discussion with family about goals of care family has elected comfort *Family is requesting comfort care and life care IPU. (7) Goals of care, counseling/discussion: PLAN: *Extensive discussion with family about goals of care going forward *Family wants comfort with the patient as he is currently experiencing respiratory distress
[2025-01-22] MEDS: Vancomycin HCl 1,500 MG in 0.9% Normal Saline (500mL Bag) 500 ML 250 MG IV (13:00)
--- NOTE | 2025-01-22 14:46 | CASEMGMT ---
Addendum entered by Geraldine Bustillo 01/22/25 15:45: Social Work SW spoke with Geraldine at [facility]. Hospice has no available nurse to come to the hospital to meet with the pt today. Paint Technician called pt's and offered for to sign consents virtually. Per Geraldine, pt was upset and crying while on the phone and did not want to sign consents virtually. stating "if he is still here Saturday, I will talk to you". SW requested that Hospice leave case open in the event pt's would be willing to speak with hospice tomorrow. Geraldine states hospice will reservice the first available visit tomorrow for this pt in the event pt's would want to meet with hospice. Saturday SW to follow up. MARY Wolfe Addendum entered by Geraldine Bustillo 01/22/25 15:26: Social Work [facility] received referral and entered it into the system. [facility] reports they currently do not have any beds available in the IPU and pt will be on a wait list. MONTY requested appointment still be set with pt's . SW met with pt's and explained that [facility] does not have a bed immediately but they will still reach out to put pt on a waiting list. MONTY reassured pt's that nurses and physicians will provide care to pt while in the hospital while the IPU is pending. Physician, Palliative VE TEACHER and RN updated. MARY Wolfe Original Note: Social Work MONTY received referral for Urgent IPU placement at [facility]. MONTY met with pt's Michaelle. Michaelle is agreeable to hospice referral for the IPU. Referral sent via secure fax to [facility] requesting be contacted to set a time for visit. MARY Wolfe
[2025-01-22] MEDS: Dexmedetomidine 1,000 mcg in 0.9% NS 240 mL 41.6 MCG CONT INF (15:50)
--- NOTE | 2025-01-22 17:19 | PCM.HOSP.N ---
Hospitalist Note Patient was seen and examined earlier today, the patient and his family decided to participate in hospice and the patient was made hospice this afternoon, he was medicated for comfort measures and at 1708 on 01/22/2025.
--- NOTE | 2025-01-22 17:20 | EXP.PCM_ITS ---
Preliminary Cause of Preliminary Cause of Preliminary Cause of : Hypoxia secondary to chronic hypoxic respiratory failure from severe interstitial lung disease Date of Admission: 01/22/25 Date of : 01/22/25 Principle Diagnosis Problem List: Active and Suspected Problems (Updated 01/22/25 @ 14:52 by PITO Wilkes) Goals of care, counseling/discussion (Acute) Palliative care encounter (Acute) Morbid obesity with BMI of 45.0-49.9, adult (Acute) Elevated troponin (Acute) Leukocytosis (Acute) Pneumonia (Acute) Interstitial lung disease (Acute) Current use of long term acute care registered nurse anticoagulation (Acute) Paroxysmal atrial fibrillation (Acute) Hospital Course This 59-year-old white male was seen in the emergency room at [facility] with complaints of dyspnea and respiratory distress, he was brought in by squad. He stated that the dyspnea had worsened over the past several days, patient is on high flow oxygen on exertion and is on baseline oxygen at 4 L at rest at home. Patient follows with pulmonary medicine due to his history of interstitial lung disease which has been progressive. Lab work done in the emergency room showed a white blood cell count of 14,000 with a hemoglobin of 8, arterial blood gas was obtained which showed a pH of 7.46, pCO2 of 32 and pO2 of 56. Chemistry profile was unremarkable. Troponin was mildly elevated and beta nitric peptide was elevated at 4221. CT of the chest demonstrated mosaic attenuation with diffuse bilateral ground glass subpleural reticular densities. Patient's respiratory viral panel was negative, patient was admitted to ICU and placed on empiric antimicrobials and IV diuresis. BiPAP was initiated. Dis cussions were carried out with the family and the patient concerning palliative care versus hospice, the patient consented to hospice care but there were no beds available in the inpatient hospice facility. Patient was given IV Ativan and morphine for comfort measures, he at 1708 on 01/22/2025 without distress. Time allotted to this summary: 30 minutes Assessment & Plan Assessment/Plan (1) Interstitial lung disease: PLAN: Plan Additional diagnosis: #1 acute on chronic hypoxic respiratory failure #2 severe interstitial lung disease #3 paroxysmal atrial fibrillation #4 type 2 diabetes #5 obstructive sleep apnea #6 acute on chronic congestive heart failure with preserved ejection fraction #7 cerebrovascular disease #8 chronic anticoagulation due to paroxysmal atrial fibrillation Visit Charges Inpatient E&M: 38777 Disch Hosp
--- NOTE | 2025-01-22 18:23 | NURSING ---
pt time of 1707, confirmed by Helena RN and Loren RN, Dr. Pate notified. Michaelle at bedside and notified. pt to go to [facility] home in [place]. 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 Pt not released per [facility].
== END 2025-01-22 18:25 | DRG 189 ==
LOC: ED 03:39 → ICU 04:57
PROVIDERS: Admitting Provider Internal Medicine; Emergency Provider Emergency Medicine; PCP Family Medicine; Visit Provider Internal Medicine
DX: J96.21 Acute and chronic respiratory failure with hypoxia (principal); I50.33 Acute on chronic diastolic (congestive) heart failure; J18.9 Pneumonia, unspecified organism; Z68.42 Body mass index [BMI] 45.0-49.9, adult; J84.112 Idiopathic pulmonary fibrosis; E11.40 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 with diabetic neuropathy, unspecified; D50.9 Iron deficiency anemia, unspecified; Z66 Do not resuscitate; Z51.5 Encounter for palliative care; I11.0 Hypertensive heart disease with heart failure; E03.9 Hypothyroidism, unspecified; F32.A Depression, unspecified; I48.0 Paroxysmal atrial fibrillation; E78.5 Hyperlipidemia, unspecified; G47.33 Obstructive sleep apnea (adult) (pediatric); I25.10 Atherosclerotic heart disease of native coronary artery without angina pectoris; F41.9 Anxiety disorder, unspecified; K21.9 Gastro-esophageal reflux disease without esophagitis; Z79.4 Long term (current) use of insulin; I25.2 Old myocardial infarction; M19.90 Unspecified osteoarthritis, unspecified site; Z99.81 Dependence on supplemental oxygen; E66.813 Obesity, class 3; N32.81 Overactive bladder; R79.89 Other specified abnormal findings of blood chemistry; N40.0 Benign prostatic hyperplasia without lower urinary tract symptoms; Z86.73 Personal history of transient ischemic attack (TIA), and cerebral infarction without residual deficits; Z79.01 Long term (current) use of anticoagulants; Z96.41 Presence of insulin pump (external) (internal); Z92.3 Personal history of irradiation; Z79.82 Long term (current) use of aspirin; Z85.71 Personal history of Hodgkin lymphoma; Z92.21 Personal history of antineoplastic chemotherapy; Z79.899 Other long term (current) drug therapy; Z79.890 Hormone replacement therapy
CPT/HCPCS: 36569; 36600; 71045; 71250; 80048; 80061; 82607; 82728; 82746; 82803; 82962; 83540; 83550; 83605; 83735; 83880; 84100; 84443; 84484; 85025; 87040; 87449; 87633; 93005; 94002; 94640; 94660; 99285; A4216; J1938; J2405